=== PATIENT | female | born 1950 | race American Indian/Alaskan Native ===

== ENCOUNTER 2016-10-13 03:53 | Inpatient (IN) | payer MEDICAID ==
[2016-10-13] MEDS ORDERED: ZEMURON IV ONE ×2 (04:01→04:10)
[2016-10-13] MEDS ORDERED: QUELICIN ONE (04:01)
[2016-10-13] MEDS ORDERED: AMIDATE IV ONE ×2 (04:01→04:10)
[2016-10-13] MEDS ORDERED: NACL 0.9% 1000 ML 1,000 ML IV ONE ×4 (04:11→07:00)
[2016-10-13] MEDS ORDERED: D50W (25GM) IV PRN ×2 (04:11→06:30)
[2016-10-13 04:38] LABS: Mean Corpuscular HGB Conc 31 % (30-34); Mean Corpuscular Hemoglobin 32 pg (28-32); Mean Corpuscular Volume 104 fl (79-97); Platelet Count 324 K/mm3 (140-440); Red Blood Count 3.99 M/mm3 (3.65-5.03); Red Cell Distribution Width 13.5 % (13.2-15.2); White Blood Count 17.4 K/mm3 (4.5-11.0)
[2016-10-13 04:40] LABS: Hematocrit 41.4 % (30.3-42.9); Hemoglobin 12.7 gm/dl (10.1-14.3)
--- NOTE | 2016-10-13 04:46 | Cat Scan Report ---
FINAL REPORT PROCEDURE: CT HEAD/BRAIN WO CON TECHNIQUE: Computerized tomography of the head was performed without contrast material. HISTORY: ams COMPARISON: No prior studies are available for comparison. FINDINGS: Skull and scalp: Normal. Paranasal sinuses: Normal. Ventricles and subarachnoid spaces: Normal. Cerebrum: No evidence of hemorrhage, acute infarction or mass . Cerebellum and brainstem: No evidence of hemorrhage, acute infarction or mass. Vasculature: Normal. Comments: None. IMPRESSION: There is no evidence of an acute intracranial process
[2016-10-13] MEDS ORDERED: NACL 0.9% 1000 ML 1,000 ML IV SCH ×3 (05:00→07:00)
[2016-10-13] MEDS: NovoLIN R 100 UNITS in NACL 0.9% 99 ML IV SCH (05:00)
[2016-10-13] MEDS: VERSED/NS 100MG/100ML 100 MG/100 ML BAG IV SCH (05:00)
--- NOTE | 2016-10-13 05:00 | Emergency Department Report ---
ED Altered Mental Status HPI - General Chief Complaint: Hyperglycemia Stated Complaint: ELEVATED BLOOD GLUCOSE Time Seen by Provider: 10/13/16 04:08 Source: family, EMS Mode of arrival: Stretcher Limitations: Other - History of Present Illness Initial Comments: 66-year-old female with a past medical history of asthma, insulin diabetes, hypertension, and previous appendectomy, cholecystectomy, thyroidectomy, and hysterectomy presents to the hospital with altered mental status. Per EMS patient was found unresponsive by her today. Her reports that she has had nausea vomiting for the last several days that they thought was due to a stomach virus. He encouraged her to come to the hospital but she was planning to come tomorrow. He was checking on her throughout the night and then found her unresponsive. EMS reports that patient was unresponsive and initially had a respiratory rate of 40 and Accu-Chek read high. In route to to the hospital her breathing slowed down and became more agonal nasal trumpet was placed and bagging was initiated. Patient unable to provide any history of present illness due to altered mental status and will not follow commands. Patient does open eyes spontaneously and there is some mild spontaneous movement of her upper extremities but does not follow commands. - Related Data Home Medications Medication Instructions Recorded Confirmed Last Taken QUEtiapine [SEROquel] 200 mg PO HS 08/27/13 11/11/13 11/01/13 clonazePAM [KlonoPIN] 1 mg PO BID PRN 08/27/13 11/11/13 11/02/13 Insulin Aspart Prot/Aspart 45 unit SQ QAM 11/02/13 11/11/13 11/02/13 [NovoLOG Mix 70/30 VIAL] Previous Rx's Medication Instructions Recorded Last Taken Type Insulin Glargine,Hum.rec.anlog 28 unit SQ QHS #10 ml 10/10/13 11/01/13 Rx [Lantus Solostar] Pantoprazole [Protonix TAB] 40 mg PO QDAY #30 tablet 10/10/13 11/02/13 Rx Spironolactone [Aldactone] 25 mg PO QDAY #30 tablet 10/10/13 11/02/13 Rx Aspirin [Aspirin BABY CHEW TAB] 81 mg PO QDAY #30 tab.chew 10/26/13 11/02/13 Rx Simvastatin [Zocor TAB] 20 mg PO QHS #30 tablet 10/27/13 11/02/13 Rx HYDROcodone/APAP 5-325 [[place] 1 each PO Q6HR PRN #20 tablet 11/02/13 Unknown Rx 5-325 mg TAB] Metoprolol [Lopressor TAB] 50 mg PO BID #60 tablet 11/14/13 11/02/13 Rx Allergies Allergy/AdvReac Type Severity Reaction Status Date / Time Penicillins Allergy Rash Verified 08/27/13 08:32 ED Review of Systems ROS: Stated complaint: ELEVATED BLOOD GLUCOSE Other details as noted in HPI Comment: Unobtainable due to pts medical conditions ED Past Medical Hx - Past Medical History Previous Medical History?: Yes Hx Hypertension: Yes Hx Heart Attack/AMI: No Hx Congestive Heart Failure: No Hx Diabetes: Yes Hx Deep Vein Thrombosis: No Hx Pulmonary Embolism: No Hx Arthritis: Yes Hx Asthma: No Hx COPD: No Hx Tuberculosis: No - Surgical History Past Surgical History?: Yes Hx Coronary Stent: No Hx Pacemaker: No Hx Internal Defibrillator: No Hx Cholecystectomy: Yes Hx Appendectomy: No Hx Breast Surgery: No Additional Surgical History: Thyroidectomy, Hysterectomy - Social History Smoking Status: Never Smoker Substance Use Type: None - Medications Home Medications: Home Medications Medication Instructions Recorded Confirmed Last Taken Type QUEtiapine [SEROquel] 200 mg PO HS 08/27/13 11/11/13 11/01/13 History clonazePAM [KlonoPIN] 1 mg PO BID PRN 08/27/13 11/11/13 11/02/13 History Insulin Glargine,Hum.rec.anlog 28 unit SQ QHS #10 ml 10/10/13 11/11/13 11/01/13 Rx [Lantus Solostar] Pantoprazole [Protonix TAB] 40 mg PO QDAY #30 tablet 10/10/13 11/11/13 11/02/13 Rx Spironolactone [Aldactone] 25 mg PO QDAY #30 tablet 10/10/13 11/11/13 11/02/13 Rx Aspirin [Aspirin BABY CHEW TAB] 81 mg PO QDAY #30 tab.chew 10/26/13 11/11/13 Rx Simvastatin [Zocor TAB] 20 mg PO QHS #30 tablet 10/27/13 11/11/13 11/02/13 Rx HYDROcodone/APAP 5-325 [[place] 1 each PO Q6HR PRN #20 tablet 11/02/13 11/11/13 Unknown Rx 5-325 mg TAB] Insulin Aspart Prot/Aspart 45 unit SQ QAM 11/02/13 11/11/13 11/02/13 History [NovoLOG Mix 70/30 VIAL] Metoprolol [Lopressor TAB] 50 mg PO BID #60 tablet 11/14/13 11/11/13 11/02/13 Rx ED Physical Exam - General Limitations: Altered Mental Status - Other Other exam information: General: Minimal responsiveness Head exam: Atraumatic, normocephalic Eyes exam: Pupils equal and reactive to light. Patient moves eyes from left to right but not on command ENT: Dry mucous membrane, nasal trumpet Neck exam: Normal inspection Respiratory exam: Agonal respirations clear to auscultation requiring bagging Cardiovascular: Tachycardic regular rhythm Abdomen: Soft, nondistended, and nontender, with normal bowel sounds, no rebound, or guarding Extremity: No deformity noted Back: Normal Inspection Neurologic: Patient unresponsive, lethargic, does open her eyes spontaneously, nonspontaneous bilateral upper lymphs noted. Patient will not follow commands. Psychiatric: Unresponsive Skin: Warm, dry, intact ED Course Vital Signs 10/13/16 10/13/16 10/13/16 04:09 04:45 04:49 Pulse Rate 122 H 126 H 123 H Respiratory 22 Rate Blood Pressure 86/49 Blood Pressure 77/44 [Right] O2 Sat by Pulse 100 100 100 Oximetry 10/13/16 05:28 Pulse Rate 109 H Respiratory Rate Blood Pressure 108/53 Blood Pressure [Right] O2 Sat by Pulse 100 Oximetry - Reevaluation(s) Reevaluation #1: 10/13/16 05:31 Bagging was continued upon patient arrival. Patient was intubated using etomidate and rocuronium due to risk of hyperkalemia from DKA. Insulin bolus, IV fluids and insulin drip ordered while labs were pending. Reevaluation #2: 10/13/16 06:07 Blood pressure currently in the 120s and we are titrating up the Versed for sedation. Patient is awake and moving all extremities. - Intubation Time Out Performed: Yes Sedative: Etomidate Mg Given: 20 Paralytic: Rocuronium Mg Given: 100 Laryngoscope: Grant Size: 3 ET Tube Size: 7.5 Tube Secured Depth (cm): 22 Tube Secured Location: lips Tube Placement Confirmation: visualized tube passing t, equal breath sounds bilat, no breath sounds over epi, confirmation by capnometr Patient Tolerated Procedure: well Intubation Complications: none Additional Comments: Chest x-ray revealed a right mainstem intubation and instructed respiratory therapist to pull ET tube back to 21 at the lip - Lab Data Result diagrams: 10/13/16 04:22 10/13/16 04:22 Lab Results 10/13/16 10/13/16 10/13/16 Range/Units 04:16 04:22 04:22 WBC 17.4 H (4.5-11.0) K/mm3 RBC 3.99 (3.65-5.03) M/mm3 Hgb 12.7 (10.1-14.3) gm/dl Hct 41.4 (30.3-42.9) % MCV 104 H (79-97) fl MCH 32 (28-32) pg MCHC 31 (30-34) % RDW 13.5 (13.2-15.2) % Plt Count 324 (140-440) K/mm3 Add Manual Diff Complete Total Counted 100 Seg Neuts % (Manual) 71.0 H (40.0-70.0) % Band Neutrophils % 9.0 % Lymphocytes % (Manual) 12.0 L (13.4-35.0) % Reactive Lymphs % (Man) 0 % Monocytes % (Manual) 8.0 H (0.0-7.3) % Eosinophils % (Manual) 0 (0.0-4.3) % Basophils % (Manual) 0 (0.0-1.8) % Metamyelocytes % 0 % Myelocytes % 0 % Promyelocytes % 0 % Blast Cells % 0 % Nucleated RBC % Not Reportable Seg Neutrophils # Man 12.4 H (1.8-7.7) K/mm3 Band Neutrophils # 1.6 K/mm3 Lymphocytes # (Manual) 2.1 (1.2-5.4) K/mm3 Abs React Lymphs (Man) 0.0 K/mm3 Monocytes # (Manual) 1.4 H (0.0-0.8) K/mm3 Eosinophils # (Manual) 0.0 (0.0-0.4) K/mm3 Basophils # (Manual) 0.0 (0.0-0.1) K/mm3 Metamyelocytes # 0.0 K/mm3 Myelocytes # 0.0 K/mm3 Promyelocytes # 0.0 K/mm3 Blast Cells # 0.0 K/mm3 WBC Morphology Not Reportable Hypersegmented Neuts Not Reportable Hyposegmented Neuts Not Reportable Hypogranular Neuts Not Reportable Smudge Cells Not Reportable Toxic Granulation Not Reportable Toxic Vacuolation Not Reportable Dohle Bodies Not Reportable Pelger-Huet Anomaly Not Reportable [place] Rods Not Reportable Platelet Estimate Consistent w auto Clumped Platelets Not Reportable Plt Clumps, EDTA Not Reportable Large Platelets Not Reportable Giant Platelets Not Reportable Platelet Satelliting Not Reportable Plt Morphology Comment Not Reportable RBC Morphology Not Reportable Dimorphic RBCs Not Reportable Polychromasia Rare Hypochromasia Not Reportable Poikilocytosis Not Reportable Anisocytosis 1+ Microcytosis Not Reportable Macrocytosis Not Reportable Spherocytes Not Reportable Pappenheimer Bodies Not Reportable Sickle Cells Not Reportable Target Cells Not Reportable Tear Drop Cells Not Reportable Ovalocytes Not Reportable Helmet Cells Not Reportable Higgins-Mclendon-Chisholm Bodies Not Reportable [place] Rings Not Reportable Apex Cells Not Reportable Bite Cells Not Reportable Crenated Cell Not Reportable Elliptocytes Not Reportable Acanthocytes (Spur) Not Reportable Rouleaux Not Reportable Hemoglobin C Crystals Not Reportable Schistocytes Not Reportable Malaria parasites Not Reportable David Bodies Not Reportable Hem Pathologist Commnt No POC ABG pH (7.35-7.45) POC ABG pCO2 (35-45) POC ABG pO2 (80-105) POC ABG HCO3 POC ABG Total CO2 POC ABG O2 Sat POC ABG Base Excess VBG pH (7.320-7.420) FiO2 % Sodium 134 L (137-145) mmol/L Chloride 88.6 L (98-107) mmol/L BUN 91 H (7-17) mg/dL Creatinine 3.2 H (0.7-1.2) mg/dL Estimated GFR 18 ml/min BUN/Creatinine Ratio 28.43 % POC Glucose > 500 H (70-105) Calcium 8.7 (8.4-10.2) mg/dL Phosphorus 10.7 H (2.5-4.5) mg/dL Magnesium 3.5 H (1.7-2.3) mg/dL Total Bilirubin 0.2 (0.1-1.2) mg/dL AST 10 (5-40) units/L ALT 7 (7-56) units/L Alkaline Phosphatase 75 (35-129) units/L Total Creatine Kinase (30-135) units/L CK-MB (CK-2) (0.0-4.0) ng/mL CK-MB (CK-2) Rel Index (0-4) Troponin T (0.00-0.029) ng/mL Total Protein 6.2 L (6.3-8.2) g/dL Albumin 3.7 L (3.9-5) g/dL Albumin/Globulin Ratio 1.5 % Urine Color (Yellow) Urine Turbidity (Clear) Urine pH (5.0-7.0) Ur Specific [place] (1.003-1.030) Urine Protein (Negative) mg/dL Urine Glucose (UA) (Negative) mg/dL Urine Ketones (Negative) mg/dL Urine Blood (Negative) Urine Nitrite (Negative) Urine Bilirubin (Negative) Urine Urobilinogen (<2.0) mg/dL Ur Leukocyte Esterase (Negative) Urine WBC (Auto) (0.0-6.0) /HPF Urine RBC (Auto) (0.0-6.0) /HPF U Epithel Cells (Auto) (0-13.0) /HPF Urine Mucus /HPF 10/13/16 10/13/16 10/13/16 Range/Units 04:22 04:22 05:03 WBC (4.5-11.0) K/mm3 RBC (3.65-5.03) M/mm3 Hgb (10.1-14.3) gm/dl Hct (30.3-42.9) % MCV (79-97) fl MCH (28-32) pg MCHC (30-34) % RDW (13.2-15.2) % Plt Count (140-440) K/mm3 Add Manual Diff Total Counted Seg Neuts % (Manual) (40.0-70.0) % Band Neutrophils % % Lymphocytes % (Manual) (13.4-35.0) % Reactive Lymphs % (Man) % Monocytes % (Manual) (0.0-7.3) % Eosinophils % (Manual) (0.0-4.3) % Basophils % (Manual) (0.0-1.8) % Metamyelocytes % % Myelocytes % % Promyelocytes % % Blast Cells % % Nucleated RBC % Seg Neutrophils # Man (1.8-7.7) K/mm3 Band Neutrophils # K/mm3 Lymphocytes # (Manual) (1.2-5.4) K/mm3 Abs React Lymphs (Man) K/mm3 Monocytes # (Manual) (0.0-0.8) K/mm3 Eosinophils # (Manual) (0.0-0.4) K/mm3 Basophils # (Manual) (0.0-0.1) K/mm3 Metamyelocytes # K/mm3 Myelocytes # K/mm3 Promyelocytes # K/mm3 Blast Cells # K/mm3 WBC Morphology Hypersegmented Neuts Hyposegmented Neuts Hypogranular Neuts Smudge Cells Toxic Granulation Toxic Vacuolation Dohle Bodies Pelger-Huet Anomaly [place] Rods Platelet Estimate Clumped Platelets Plt Clumps, EDTA Large Platelets Giant Platelets Platelet Satelliting Plt Morphology Comment RBC Morphology Dimorphic RBCs Polychromasia Hypochromasia Poikilocytosis Anisocytosis Microcytosis Macrocytosis Spherocytes Pappenheimer Bodies Sickle Cells Target Cells Tear Drop Cells Ovalocytes Helmet Cells Higgins-Mclendon-Chisholm Bodies [place] Rings Apex Cells Bite Cells Crenated Cell Elliptocytes Acanthocytes (Spur) Rouleaux Hemoglobin C Crystals Schistocytes Malaria parasites David Bodies Hem Pathologist Commnt POC ABG pH (7.35-7.45) POC ABG pCO2 (35-45) POC ABG pO2 (80-105) POC ABG HCO3 POC ABG Total CO2 POC ABG O2 Sat POC ABG Base Excess VBG pH 7.020 L* (7.320-7.420) FiO2 % Sodium (137-145) mmol/L Chloride (98-107) mmol/L BUN (7-17) mg/dL Creatinine (0.7-1.2) mg/dL Estimated GFR ml/min BUN/Creatinine Ratio % POC Glucose (70-105) Calcium (8.4-10.2) mg/dL Phosphorus (2.5-4.5) mg/dL Magnesium (1.7-2.3) mg/dL Total Bilirubin (0.1-1.2) mg/dL AST (5-40) units/L ALT (7-56) units/L Alkaline Phosphatase (35-129) units/L Total Creatine Kinase 107 (30-135) units/L CK-MB (CK-2) 3.1 (0.0-4.0) ng/mL CK-MB (CK-2) Rel Index 2.8 (0-4) Troponin T < 0.010 (0.00-0.029) ng/mL Total Protein (6.3-8.2) g/dL Albumin (3.9-5) g/dL Albumin/Globulin Ratio % Urine Color Yellow (Yellow) Urine Turbidity Clear (Clear) Urine pH 5.0 (5.0-7.0) Ur Specific [place] 1.017 (1.003-1.030) Urine Protein 30 mg/dl (Negative) mg/dL Urine Glucose (UA) >=500 (Negative) mg/dL Urine Ketones 20 (Negative) mg/dL Urine Blood Mod (Negative) Urine Nitrite Neg (Negative) Urine Bilirubin Neg (Negative) Urine Urobilinogen < 2.0 (<2.0) mg/dL Ur Leukocyte Esterase Neg (Negative) Urine WBC (Auto) < 1.0 (0.0-6.0) /HPF Urine RBC (Auto) < 1.0 (0.0-6.0) /HPF U Epithel Cells (Auto) < 1.0 (0-13.0) /HPF Urine Mucus Few /HPF 10/13/ Range/Units 05:22 WBC (4.5-11.0) K/mm3 RBC (3.65-5.03) M/mm3 Hgb (10.1-14.3) gm/dl Hct (30.3-42.9) % MCV (79-97) fl MCH (28-32) pg MCHC (30-34) % RDW (13.2-15.2) % Plt Count (140-440) K/mm3 Add Manual Diff Total Counted Seg Neuts % (Manual) (40.0-70.0) % Band Neutrophils % % Lymphocytes % (Manual) (13.4-35.0) % Reactive Lymphs % (Man) % Monocytes % (Manual) (0.0-7.3) % Eosinophils % (Manual) (0.0-4.3) % Basophils % (Manual) (0.0-1.8) % Metamyelocytes % % Myelocytes % % Promyelocytes % % Blast Cells % % Nucleated RBC % Seg Neutrophils # Man (1.8-7.7) K/mm3 Band Neutrophils # K/mm3 Lymphocytes # (Manual) (1.2-5.4) K/mm3 Abs React Lymphs (Man) K/mm3 Monocytes # (Manual) (0.0-0.8) K/mm3 Eosinophils # (Manual) (0.0-0.4) K/mm3 Basophils # (Manual) (0.0-0.1) K/mm3 Metamyelocytes # K/mm3 Myelocytes # K/mm3 Promyelocytes # K/mm3 Blast Cells # K/mm3 WBC Morphology Hypersegmented Neuts Hyposegmented Neuts Hypogranular Neuts Smudge Cells Toxic Granulation Toxic Vacuolation Dohle Bodies Pelger-Huet Anomaly [place] Rods Platelet Estimate Clumped Platelets Plt Clumps, EDTA Large Platelets Giant Platelets Platelet Satelliting Plt Morphology Comment RBC Morphology Dimorphic RBCs Polychromasia Hypochromasia Poikilocytosis Anisocytosis Microcytosis Macrocytosis Spherocytes Pappenheimer Bodies Sickle Cells Target Cells Tear Drop Cells Ovalocytes Helmet Cells Higgins-Mclendon-Chisholm Bodies [place] Rings Jeannette Cells Bite Cells Crenated Cell Elliptocytes Acanthocytes (Spur) Rouleaux Hemoglobin C Crystals Schistocytes Malaria parasites David Bodies Hem Pathologist Commnt POC ABG pH 7.085 L (7.35-7.45) POC ABG pCO2 28.8 L (35-45) POC ABG pO2 375 H (80-105) POC ABG HCO3 8.6 POC ABG Total CO2 10 POC ABG O2 Sat 100 POC ABG Base Excess -21 VBG pH (7.320-7.420) FiO2 100 % Sodium (137-145) mmol/L Chloride (98-107) mmol/L BUN (7-17) mg/dL Creatinine (0.7-1.2) mg/dL Estimated GFR ml/min BUN/Creatinine Ratio % POC Glucose (70-105) Calcium (8.4-10.2) mg/dL Phosphorus (2.5-4.5) mg/dL Magnesium (1.7-2.3) mg/dL Total Bilirubin (0.1-1.2) mg/dL AST (5-40) units/L ALT (7-56) units/L Alkaline Phosphatase (35-129) units/L Total Creatine Kinase (30-135) units/L CK-MB (CK-2) (0.0-4.0) ng/mL CK-MB (CK-2) Rel Index (0-4) Troponin T (0.00-0.029) ng/mL Total Protein (6.3-8.2) g/dL Albumin (3.9-5) g/dL Albumin/Globulin Ratio % Urine Color (Yellow) Urine Turbidity (Clear) Urine pH (5.0-7.0) Ur Specific [place] (1.003-1.030) Urine Protein (Negative) mg/dL Urine Glucose (UA) (Negative) mg/dL Urine Ketones (Negative) mg/dL Urine Blood (Negative) Urine Nitrite (Negative) Urine Bilirubin (Negative) Urine Urobilinogen (<2.0) mg/dL Ur Leukocyte Esterase (Negative) Urine WBC (Auto) (0.0-6.0) /HPF Urine RBC (Auto) (0.0-6.0) /HPF U Epithel Cells (Auto) (0-13.0) /HPF Urine Mucus /HPF - EKG Data -: EKG Interpreted by Me - Radiology Data Radiology results: report reviewed, image reviewed (chest x-ray: No acute infiltrate right main stemnn intubation) CT head: No acute findings CT abdomen and pelvis noncontrast: Some streaking of the mesentery fat surrounding the pancreas early inflammatory changes in the pancreas is suspected. Left lower lobe infiltrate - Medical Decision Making Patient will require admission to the hospital for DKA. She is currently intubated and requires ICU admission. Normal saline, insulin drip initiated in the ED. CT suggestive of possible pancreatitis lipase pending. CT also shows left lower lobe infiltrate blood cultures and Levaquin initiated - Differential Diagnosis dKA, intra-abdominal infection, intracranial abnormality, encephalopathy Critical Care Time: Yes Critical care time in (mins) excluding proc time.: 40 (min) Critical care attestation.: If time is entered above; I have spent that time in minutes in the direct care of this critically ill patient, excluding procedure time. ED Disposition Clinical Impression: DKA (diabetic ketoacidoses), Hyperkalemia, Acute on chronic renal failure, Respiratory failure, Pneumonia Disposition: OP ADMITTED IP TO THIS HOSP Is pt being admited?: Yes Condition: Stable Time of Disposition: 05:48 (Dr. Norwood/hosp)
[2016-10-13] MEDS ORDERED: VERSED/NS 100MG/100ML 100 MG/100 ML BAG IV ONE (05:12)
[2016-10-13] MEDS ORDERED: ARTIFICIAL TEARS OPHTH OINT OU PRN (05:14)
[2016-10-13] MEDS ORDERED: VASELINE LIP THERAPY TP PRN (05:14)
[2016-10-13] MEDS ORDERED: NACL 0.9% 1000 ML 2,000 ML IV ONE (05:17)
[2016-10-13 05:18] LABS: Creatine Kinase MB 3.1 ng/mL (0.0-4.0)
[2016-10-13 05:19] LABS: Creatine Kinase 107 units/L (30-135)
[2016-10-13 05:21] LABS: Anisocytosis 1+; Basophils % (Manual) 0 % (0.0-1.8); Blastocytes % (Manual) 0 %; Diff Status Complete; Eosinophils % (Manual) 0 % (0.0-4.3); Platelet Estimate Consistent w Auto; Polychromasia Rare
[2016-10-13 05:28] LABS: Bilirubin,Urine NEG (Negative); Blood,Urine MOD (Negative); Ketones,Urine 20 mg/dL (Negative); Leukocyte Esterase,Urine NEG (Negative); Mucus,Urine FEW /HPF; Nitrite,Urine NEG (Negative); RBC,Urine < 1.0 /HPF (0.0-6.0); Urobilinogen,Urine < 2.0 mg/dL (<2.0); WBC,Urine < 1.0 /HPF (0.0-6.0)
--- NOTE | 2016-10-13 05:35 | Cat Scan Report ---
FINAL REPORT PROCEDURE: CT ABDOMEN PELVIS WO CON TECHNIQUE: Computerized axial tomography of the abdomen and pelvis was performed without intravenous contrast. This study is performed without intravascular contrast material and its sensitivity for abdominal and pelvic pathology, including neoplasms, inflammation, abscess, free fluid, thrombosis, arterial dissection and infarction, is reduced compared with a contrast enhanced study. HISTORY: ams, n,v COMPARISON: No prior studies are available for comparison. FINDINGS: Visualized lower thorax: There is infiltrate in the left lower lung. Mild atelectasis right lower lung.. Liver: Normal size and attenuation. Spleen: Normal size and attenuation. Gallbladder and biliary system: There is absence of the gallbladder. No dilatation of the biliary ductal system. Pancreas: There is slight increased markings in the [place] pancreatic mesenteric fat, early inflammatory change of pancreatitis is possible. The pancreas has a normal appearance. No pancreatic mass. No pseudocyst.. Adrenals: Normal. Kidneys: Normal. GI tract: The stomach is normal. The nasogastric tube ends mid stomach. The small bowel has a normal caliber. No obstruction, ileus or enteritis. The cecum, appendix region and colon are normal. Mild diverticular change within the distal colon.. Lymph nodes and mesentery: Normal. Vasculature: Moderate atherosclerosis of the aorta and branching vessels. Bladder: Normal. Reproductive organs: Normal. Peritoneum: No free fluid. Musculoskeletal structures: Mild degenerative changes of the osseous structures.. Other: None. IMPRESSION: There is no evidence of intestinal urinary tract obstruction. No ileus or enteritis. Moderate diverticulosis of the colon. Eighty nasogastric tube ends in the mid stomach. There is some streaking of the mesenteric fat surrounding the pancreas, early inflammatory change of pancreatitis is suspected. No complication. Previous cholecystectomy. Left lower lung infiltrate..
[2016-10-13 05:38] LABS: Albumin 3.7 g/dL (3.9-5); Albumin/Globulin Ratio 1.5 %; BUN/Creatinine Ratio 28.43; Bilirubin,Total 0.2 mg/dL (0.1-1.2); Calcium 8.7 mg/dL (8.4-10.2); Chloride 88.6 mmol/L (98-107); Magnesium 3.5 mg/dL (1.7-2.3); Phosphorous 10.7 mg/dL (2.5-4.5); Total Protein 6.2 g/dL (6.3-8.2)
[2016-10-13 05:38] LABS: ISTAT Base Excess -21; ISTAT HCO3 8.6; ISTAT PCO2 28.8 (35-45); ISTAT PH 7.085 (7.35-7.45); ISTAT PO2 375 (80-105); ISTAT SO2 100; ISTAT TCO2 10
[2016-10-13] MEDS ORDERED: LEVAQUIN 750MG/150ML 750 MG/150 ML BAG IV ONE (05:49)
[2016-10-13] MEDS ORDERED: NACL 0.9% 500 ML IV SCH (06:00)
[2016-10-13] MEDS ORDERED: VERSED/NS 100MG/100ML 100 ML IV SCH (06:00)
[2016-10-13] MEDS ORDERED: fentaNYL DRIP Premix 2,000 MCG/100 ML BAG IV ONE (06:21)
[2016-10-13 06:25] LABS: B-Hydroxybutyrate 107.3 mg/dL (0.2-2.8)
[2016-10-13 06:32] LABS: Potassium 8.4 mmol/L (3.6-5.0)
--- NOTE | 2016-10-13 06:38 | History and Physical Report ---
History of Present Illness Date of examination: 10/13/16 History of present illness: A 63-year-old with a history of hypertension, diabetes complain to her yesterday that she was not feeling well. This morning at 2 AM, she was restless in bed, he checked on her, she was lethargic and was brought to the emergency room for evaluation. In route to the hospital, she deteriorates and had to be intubated in the emergency room. Her review of system is unobtainable PAST SURGICAL HISTORY: As directed, cholecystectomy, thyroid surgery SOCIAL HISTORY: No alcohol, tobacco, drugs FAMILY HISTORY: Hypertension Medications and Allergies Allergies Allergy/AdvReac Type Severity Reaction Status Date / Time Penicillins Allergy Rash Verified 08/27/13 08:32 Home Medications Medication Instructions Recorded Confirmed Last Taken Type Insulin Aspart [NovoLOG Flexpen] 45 units SQ QPM 10/13/16 10/13/16 Unknown History Insulin Aspart [NovoLOG Flexpen] 50 units SQ QAM 10/13/16 10/13/16 Unknown History Insulin Detemir [Levemir VIAL] 20 unit SQ QHS 10/13/16 10/13/16 Unknown History Losartan [Cozaar] 25 mg PO QDAY 10/13/16 10/13/16 Unknown History Metoprolol [Lopressor] 25 mg PO BID 10/13/16 10/13/16 Unknown History Pregabalin [Lyrica] 75 mg PO BID 10/13/16 10/13/16 Unknown History Quetiapine Fumarate [Seroquel] 100 mg PO QHS 10/13/16 10/13/16 Unknown History amLODIPine [Norvasc] 5 mg PO DAILY 10/13/16 10/13/16 Unknown History clonazePAM [Klonopin] 1 mg PO BID PRN 10/13/16 10/13/16 Unknown History Active Meds: Active Medications Dextrose (D50w (25gm)) 0 ml IV PRN PRN PRN Reason: Hypoglycemia Dextrose (D50w (25gm)) 0 ml IV ONCE PRN PRN Reason: Hypoglycemia Enoxaparin Sodium (Lovenox) 30 mg SUB-Q QDAY JULI Hydrophilic Ointment (Vaseline Lip Therapy) 1 applic TP Q2HR PRN PRN Reason: Dry Lips Insulin Human Regular 100 (units/ Sodium Chloride) 100 mls @ 1 mls/hr IV TITR JULI; 1 UNITS/HR PRN Reason: Protocol Last Admin: 10/13/16 05:00 Dose: 8 units/hr, 8 mls/hr Sodium Chloride (Nacl 0.9% 1000 Ml) 1,000 mls @ 999 mls/hr IV DIRECT JULI Midazolam HCl (Versed/Ns 100mg/100ml) 100 mg in 100 mls @ 1 mls/hr IV TITR JULI ; 1 MG/HR PRN Reason: Protocol Last Titration: 10/13/16 06:31 Dose: 5 mg/hr, 5 mls/hr Sodium Chloride (Nacl 0.9% 1000 Ml) 1,000 mls @ 999 mls/hr IV DIRECT JULI Sodium Chloride (Nacl 0.9% 1000 Ml) 1,000 mls @ 999 mls/hr IV DIRECT ONE Stop: 10/13/16 07:00 Last Admin: 10/13/16 06:00 Dose: 999 mls/hr Levofloxacin/Dextrose (Levaquin 750mg/150ml) 750 mg in 150 mls @ 100 mls/hr IV ONCE ONE Stop: 10/13/16 07:18 Sodium Chloride (Nacl 0.9% 1000 Ml) 1,000 mls @ 150 mls/hr IV DIRECT JULI Fentanyl Citrate (Fentanyl Drip Premix) 2,000 mcg in 100 mls @ 4.082 mls/hr IV TITR JULI; 1 MCG/KG/HR PRN Reason: Protocol Dextrose (D5w) 1,000 mls @ 125 mls/hr IV DIRECT JULI Levofloxacin/Dextrose (Levaquin 500mg/100ml) 500 mg in 100 mls @ 100 mls/hr IV Q48H JULI PRN Reason: Protocol Multi-Ingred Cream/Lotion/Oil/Oint (Artificial Tears Ophth Oint) 1 applic OU Q4HR PRN PRN Reason: Dry Eye(s) Ondansetron HCl (Zofran) 4 mg IV Q8H PRN PRN Reason: N/V unrelieved by Reglan Sodium Chloride (Nacl 0.9% 500 Ml) 1 ml IV DIRECT JULI Exam - Physical Exam Narrative exam: General Apperance: The patient sitting in bed no acute distress, intubated, sedated HEENT: Normocephalic, atraumatic. Pupils equally round and reactive to light, unable to do extraocular movement , and no sclericterus or JVD or thyromegaly or nodule. Neck supple, no carotid bruit, mucous membranesdry , ET tube in place, and a neighbor to examine oral cavity Heart: S1-S2, regular is rhythm Lungs: Clear to auscultation bilaterally, breathing comfortable Abdomen: Positive bowel sounds, soft, nontender, nondistended, no organomegaly Extremities: No edema cyanosis clubbing Skin: no rash, nodule, warm and dry Neuro: Sedated - Constitutional Vitals: Temp Pulse Resp BP Pulse Ox 76 24 105/75 100 10/13/16 06:36 10/13/16 06:36 10/13/16 06:36 10/13/16 06:36 Results - Labs CBC & Chem 7: 10/24/16 11:00 10/23/16 Unknown Labs: Abnormal lab results 10/13/16 10/13/16 10/13/16 Range/Units 04:16 04:22 04:22 WBC 17.4 H (4.5-11.0) K/mm3 MCV 104 H (79-97) fl Seg Neuts % (Manual) 71.0 H (40.0-70.0) % Lymphocytes % (Manual) 12.0 L (13.4-35.0) % Monocytes % (Manual) 8.0 H (0.0-7.3) % Seg Neutrophils # Man 12.4 H (1.8-7.7) K/mm3 Monocytes # (Manual) 1.4 H (0.0-0.8) K/mm3 POC ABG pH (7.35-7.45) POC ABG pCO2 (35-45) POC ABG pO2 (80-105) VBG pH (7.320-7.420) Sodium 134 L (137-145) mmol/L Potassium 8.4 H* (3.6-5.0) mmol/L Chloride 88.6 L (98-107) mmol/L Carbon Dioxide 7 L* (22-30) mmol/L BUN 91 H (7-17) mg/dL Creatinine 3.2 H (0.7-1.2) mg/dL Glucose 846 H* (65-100) mg/dL POC Glucose > 500 H (70-105) Lactic Acid (0.7-2.0) mmol/L Phosphorus 10.7 H (2.5-4.5) mg/dL Magnesium 3.5 H (1.7-2.3) mg/dL Total Protein 6.2 L (6.3-8.2) g/dL Albumin 3.7 L (3.9-5) g/dL Lipase 2185 H (13-60) units/L Ketones 107.3 H (0.2-2.8) mg/dL 10/13/16 10/13/16 10/13/16 Range/Units 04:22 04:22 05:22 WBC (4.5-11.0) K/mm3 MCV (79-97) fl Seg Neuts % (Manual) (40.0-70.0) % Lymphocytes % (Manual) (13.4-35.0) % Monocytes % (Manual) (0.0-7.3) % Seg Neutrophils # Man (1.8-7.7) K/mm3 Monocytes # (Manual) (0.0-0.8) K/mm3 POC ABG pH 7.085 L (7.35-7.45) POC ABG pCO2 28.8 L (35-45) POC ABG pO2 375 H (80-105) VBG pH 7.020 L* (7.320-7.420) Sodium (137-145) mmol/L Potassium (3.6-5.0) mmol/L Chloride (98-107) mmol/L Carbon Dioxide (22-30) mmol/L BUN (7-17) mg/dL Creatinine (0.7-1.2) mg/dL Glucose (65-100) mg/dL POC Glucose (70-105) Lactic Acid 2.6 H* (0.7-2.0) mmol/L Phosphorus (2.5-4.5) mg/dL Magnesium (1.7-2.3) mg/dL Total Protein (6.3-8.2) g/dL Albumin (3.9-5) g/dL Lipase (13-60) units/L Ketones (0.2-2.8) mg/dL 10/13/16 Range/Units 06:16 WBC (4.5-11.0) K/mm3 MCV (79-97) fl Seg Neuts % (Manual) (40.0-70.0) % Lymphocytes % (Manual) (13.4-35.0) % Monocytes % (Manual) (0.0-7.3) % Seg Neutrophils # Man (1.8-7.7) K/mm3 Monocytes # (Manual) (0.0-0.8) K/mm3 POC ABG pH (7.35-7.45) POC ABG pCO2 (35-45) POC ABG pO2 (80-105) VBG pH (7.320-7.420) Sodium (137-145) mmol/L Potassium (3.6-5.0) mmol/L Chloride (98-107) mmol/L Carbon Dioxide (22-30) mmol/L BUN (7-17) mg/dL Creatinine (0.7-1.2) mg/dL Glucose (65-100) mg/dL POC Glucose 479 H (70-105) Lactic Acid (0.7-2.0) mmol/L Phosphorus (2.5-4.5) mg/dL Magnesium (1.7-2.3) mg/dL Total Protein (6.3-8.2) g/dL Albumin (3.9-5) g/dL Lipase (13-60) units/L Ketones (0.2-2.8) mg/dL - Imaging and Cardiology CT scan - abdomen: report reviewed CT Scan - head: report reviewed CT scan - pelvis: report reviewed Assessment and Plan Acute respiratory failure Severe DKA Sepsis Pneumonia Acute renal failure Hyperkalemia Admits medicine Continue aggressive IV fluids, start insulin drip Monitor serial chemistry, fingersticks Give stat calcium, bicarbonate Start IV Levaquin Consult renal, critical care Start DVT prophylaxis
[2016-10-13] MEDS ORDERED: CALCIUM CHLORIDE 1,000 MG in NACL 0.9% 100 ML IV ONE (06:40)
[2016-10-13] MEDS ORDERED: SODIUM BICARBONATE IV ONE (06:40)
[2016-10-13] MEDS ORDERED: KIONEX PO ONE (06:41)
[2016-10-13] MEDS: fentaNYL DRIP Premix 2,000 MCG/100 ML BAG IV SCH (06:41)
[2016-10-13 06:48] LABS: Calcium 8.2 mg/dL (8.4-10.2); Chloride 95.3 mmol/L (98-107)
[2016-10-13] MEDS ORDERED: D5W 1,000 ML IV SCH (07:00)
[2016-10-13] MEDS ORDERED: D5W/0.45% NACL/KCL 20 MEQ 20 MEQ/1,000 ML BAG IV SCH (07:00)
[2016-10-13 07:12] LABS: BUN/Creatinine Ratio 30.35; Calcium 7.9 mg/dL (8.4-10.2); Chloride 98.8 mmol/L (98-107)
[2016-10-13 07:31] LABS: Potassium 7.3 mmol/L (3.6-5.0)
[2016-10-13 07:50] LABS: Potassium 6.2 mmol/L (3.6-5.0)
[2016-10-13 08:02] LABS: Phosphorous 6.9 mg/dL (2.5-4.5)
[2016-10-13 09:29] LABS: BUN/Creatinine Ratio 28.51; Chloride 104.1 mmol/L (98-107); Potassium 5.6 mmol/L (3.6-5.0)
[2016-10-13] MEDS ORDERED: PANCREAZE DR 10,500 UNIT FEEDTUBE PRN (09:39)
[2016-10-13] MEDS ORDERED: SODIUM BICARBONATE FEEDTUBE PRN (09:39)
[2016-10-13] MEDS ORDERED: SIMPLE SYRUP FEEDTUBE PRN ×2 (09:39)
[2016-10-13] MEDS ORDERED: LOVENOX SUB-Q SCH ×2 (10:00)
--- NOTE | 2016-10-13 10:08 | XRay Report ---
AP CHEST History: Endotracheal tube placement. Findings: Right mainstem bronchus intubation is identified. These findings were noted by Dr. Jarquin in the emergency department. Retraction by 3 cm is recommended. Heart and mediastinal structures are within normal limits. The lungs are clear. No acute process is noted. Cardiac defibrillator pads are in place. Impression: Right mainstem bronchus intubation, see above. Otherwise, no acute process is appreciated in the chest.
--- NOTE | 2016-10-13 11:06 | Consultation ---
History of Present Illness - Reason for Consult Consult date: 10/13/16 acute renal failure - History of Present Illness This is a 66 year old female who is admitted to the hospital for unresponsiveness. Patient was found at home unresponsive by her who called 911. When EMS arrived to patient home patient was indeed unresponsive and her glucose levels were elevated on Acu-Check machine, reading " high". Patient required intubation. On evaluation in E.R patient was found to be in DKA as her blood glucose levels revealed 664. Patient has been started on insulin drip. Patient also noted to be Acidotic and Hyperkalemic due to DKA. Serum creatinine noted to be elevated at 2.7. Patient's is currently at bedside who states patient was seen by a kidney doctor 3-4 years ago due to kidney" shutting down" per . We are being consulted for management of this patient's Acute Renal Failure on CKD. Past History Past Medical History: diabetes, hypertension Past Surgical History: Other (left alina surgery for fracture repair and thyroid surgery per ) Social history: Family history: no significant family history Medications and Allergies Allergies Allergy/AdvReac Type Severity Reaction Status Date / Time Penicillins Allergy Rash Verified 08/27/13 08:32 Home Medications Medication Instructions Recorded Confirmed Last Taken Type Insulin Aspart [NovoLOG Flexpen] 45 units SQ QPM 10/13/16 10/13/16 Unknown History Insulin Aspart [NovoLOG Flexpen] 50 units SQ QAM 10/13/16 10/13/16 Unknown History Insulin Detemir [Levemir VIAL] 20 unit SQ QHS 10/13/16 10/13/16 Unknown History Losartan [Cozaar] 25 mg PO QDAY 10/13/16 10/13/16 Unknown History Metoprolol [Lopressor] 25 mg PO BID 10/13/16 10/13/16 Unknown History Pregabalin [Lyrica] 75 mg PO BID 10/13/16 10/13/16 Unknown History Quetiapine Fumarate [Seroquel] 100 mg PO QHS 10/13/16 10/13/16 Unknown History amLODIPine [Norvasc] 5 mg PO DAILY 10/13/16 10/13/16 Unknown History clonazePAM [Klonopin] 1 mg PO BID PRN 10/13/16 10/13/16 Unknown History Active Meds: Active Medications Lipase/Protease/Amylase (Pancreaze Dr 10,500 Unit) 1 each FEEDTUBE PRN PRN PRN Reason: For Clogged Feeding Tube Dextrose (D50w (25gm)) 0 ml IV ONCE PRN PRN Reason: Hypoglycemia Enoxaparin Sodium (Lovenox) 30 mg SUB-Q QDAY JULI Hydrophilic Ointment (Vaseline Lip Therapy) 1 applic TP Q2HR PRN PRN Reason: Dry Lips Insulin Human Regular 100 (units/ Sodium Chloride) 100 mls @ 1 mls/hr IV TITR JLUI; 1 UNITS/HR PRN Reason: Protocol Last Titration: 10/13/16 10:13 Dose: 11 units/hr, 11 mls/hr Midazolam HCl (Versed/Ns 100mg/100ml) 100 mg in 100 mls @ 1 mls/hr IV TITR JULI ; 1 MG/HR PRN Reason: Protocol Last Titration: 10/13/16 06:31 Dose: 5 mg/hr, 5 mls/hr Sodium Chloride (Nacl 0.9% 1000 Ml) 1,000 mls @ 150 mls/hr IV DIRECT JULI Fentanyl Citrate (Fentanyl Drip Premix) 2,000 mcg in 100 mls @ 4.082 mls/hr IV TITR JULI; 1 MCG/KG/HR PRN Reason: Protocol Last Titration: 10/13/16 08:06 Dose: 2 mcg/kg/hr, 8.165 mls/hr Dextrose (D5w) 1,000 mls @ 125 mls/hr IV DIRECT JULI Levofloxacin/Dextrose (Levaquin 500mg/100ml) 500 mg in 100 mls @ 100 mls/hr IV Q48H JULI PRN Reason: Protocol Multi-Ingred Cream/Lotion/Oil/Oint (Artificial Tears Ophth Oint) 1 applic OU Q4HR PRN PRN Reason: Dry Eye(s) Ondansetron HCl (Zofran) 4 mg IV Q8H PRN PRN Reason: N/V unrelieved by Reglan Simple Syrup (Simple Syrup) 15 ml FEEDTUBE PRN PRN PRN Reason: Hypoglycemia Simple Syrup (Simple Syrup) 30 ml FEEDTUBE PRN PRN PRN Reason: Hypoglycemia Sodium Bicarbonate (Sodium Bicarbonate) 325 mg FEEDTUBE PRN PRN PRN Reason: For Clogged Feeding Tube Sodium Chloride (Nacl 0.9% 500 Ml) 1 ml IV DIRECT JULI Review of Systems ROS unobtainable: due to endotracheal tube, due to mental status Exam - Vital Signs Vital signs: Vital Signs Pulse Resp BP Pulse Ox 120 H 32 H 104/78 99 10/13/16 04:04 10/13/16 04:04 10/13/16 04:04 10/13/16 04:04 - General Appearance General appearance: other (sedated and intubated) EENT: ATNC, PERRL Neck: Present: neck supple, trachea midline Respiratory: Clear to Ascultation Heart: regular, S1S2 Gastrointestinal: Present: normoactive bowel sounds Integumentary: warm and dry Neurologic: other (sedated and intubated) Results - Lab Results 10/13/16 04:22 10/13/16 10:44 Most recent lab results Calcium 8.0 mg/dL (8.4-10.2) L 10/13/16 08:49 Phosphorus 6.9 mg/dL (2.5-4.5) H D 10/13/16 06:38 Magnesium 3.0 mg/dL (1.7-2.3) H 10/13/16 06:38 Assessment and Plan - Patient Problems (1) Acute on chronic renal failure Current Visit: Yes Status: Acute Plan to address problem: Acute Renal Failure secondary to Diabetic Keto Acidosis and possibly has underlying CKD from Diabetes Mellitus and Hypertension Baseline serum creatinine unknown Obtain renal panel, urine lytes and protein labs Obtain renal ultrasound DKA- on Insulin drip On D5W@ 125 ml/hr Hyperkalemia-received Kayexalate and other anti-potassium meds Acidosis-will correct itself as DKA resolves on insulin drip Obtain daily weights Renally dose medications Strict I/O monitoring, stewart catheter present Will monitor renal function closely Renal plan of care reviewed with Dr. Paniagua Thank you for the kind consult. We will follow. (2) DKA (diabetic ketoacidoses) Current Visit: Yes Status: Acute Qualifiers: Diabetes mellitus type: D Diabetes mellitus complication detail: D Plan to address problem: On insulin drip (3) Hyperkalemia Current Visit: Yes Status: Acute Plan to address problem: Received Kayexalate and other anti-potassium meds (4) Respiratory failure Current Visit: Yes Status: Acute Qualifiers: Chronicity: C Respiratory failure complication: R Plan to address problem: Intubated (5) Acidosis Current Visit: Yes Status: Acute Plan to address problem: Acidosis secondary to DKA, no bicarb drip needed, this will correct itself as DKA improves on insulin drip
[2016-10-13 11:28] LABS: BUN/Creatinine Ratio 27.69; Calcium 8.2 mg/dL (8.4-10.2); Chloride 105.2 mmol/L (98-107); Potassium 5.4 mmol/L (3.6-5.0)
--- NOTE | 2016-10-13 13:21 | Consultation ---
History of Present Illness Consult date: 10/13/16 Requesting physician: JUAN HAAS Reason for consult: other (Acute Respiratory Failure; DKA) History of present illness: PULMONARY/CCM CONSULT NOTE (Full dictation # [id number]) Please see dictated notes for full details Past History Past Medical History: diabetes, hypertension Past Surgical History: Other (left alina surgery for fracture repair and thyroid surgery per ) Social history: Family history: no significant family history Medications and Allergies Allergies Allergy/AdvReac Type Severity Reaction Status Date / Time Penicillins Allergy Rash Verified 08/27/13 08:32 Home Medications Medication Instructions Recorded Confirmed Last Taken Type Insulin Aspart [NovoLOG Flexpen] 45 units SQ QPM 10/13/16 10/13/16 Unknown History Insulin Aspart [NovoLOG Flexpen] 50 units SQ QAM 10/13/16 10/13/16 Unknown History Insulin Detemir [Levemir VIAL] 20 unit SQ QHS 10/13/16 10/13/16 Unknown History Losartan [Cozaar] 25 mg PO QDAY 10/13/16 10/13/16 Unknown History Metoprolol [Lopressor] 25 mg PO BID 10/13/16 10/13/16 Unknown History Pregabalin [Lyrica] 75 mg PO BID 10/13/16 10/13/16 Unknown History Quetiapine Fumarate [Seroquel] 100 mg PO QHS 10/13/16 10/13/16 Unknown History amLODIPine [Norvasc] 5 mg PO DAILY 10/13/16 10/13/16 Unknown History clonazePAM [Klonopin] 1 mg PO BID PRN 10/13/16 10/13/16 Unknown History Active Meds: Active Medications Lipase/Protease/Amylase (Pancreaze Dr 10,500 Unit) 1 each FEEDTUBE PRN PRN PRN Reason: For Clogged Feeding Tube Dextrose (D50w (25gm)) 0 ml IV ONCE PRN PRN Reason: Hypoglycemia Enoxaparin Sodium (Lovenox) 30 mg SUB-Q QDAY JULI Last Admin: 10/13/16 11:11 Dose: 30 mg Hydrophilic Ointment (Vaseline Lip Therapy) 1 applic TP Q2HR PRN PRN Reason: Dry Lips Insulin Human Regular 100 (units/ Sodium Chloride) 100 mls @ 1 mls/hr IV TITR JULI; 1 UNITS/HR PRN Reason: Protocol Last Titration: 10/13/16 12:26 Dose: 10 units/hr, 10 mls/hr Midazolam HCl (Versed/Ns 100mg/100ml) 100 mg in 100 mls @ 1 mls/hr IV TITR JULI ; 1 MG/HR PRN Reason: Protocol Last Titration: 10/13/16 06:31 Dose: 5 mg/hr, 5 mls/hr Sodium Chloride (Nacl 0.9% 1000 Ml) 1,000 mls @ 150 mls/hr IV DIRECT JULI Fentanyl Citrate (Fentanyl Drip Premix) 2,000 mcg in 100 mls @ 4.082 mls/hr IV TITR JULI; 1 MCG/KG/HR PRN Reason: Protocol Last Titration: 10/13/16 12:26 Dose: 3 mcg/kg/hr, 12.247 mls/hr Dextrose (D5w) 1,000 mls @ 125 mls/hr IV DIRECT JULI Levofloxacin/Dextrose (Levaquin 500mg/100ml) 500 mg in 100 mls @ 100 mls/hr IV Q48H JULI PRN Reason: Protocol Multi-Ingred Cream/Lotion/Oil/Oint (Artificial Tears Ophth Oint) 1 applic OU Q4HR PRN PRN Reason: Dry Eye(s) Ondansetron HCl (Zofran) 4 mg IV Q8H PRN PRN Reason: N/V unrelieved by Reglan Simple Syrup (Simple Syrup) 15 ml FEEDTUBE PRN PRN PRN Reason: Hypoglycemia Simple Syrup (Simple Syrup) 30 ml FEEDTUBE PRN PRN PRN Reason: Hypoglycemia Sodium Bicarbonate (Sodium Bicarbonate) 325 mg FEEDTUBE PRN PRN PRN Reason: For Clogged Feeding Tube Sodium Chloride (Nacl 0.9% 500 Ml) 1 ml IV DIRECT JULI Physical Examination Vital signs: Vital Signs Pulse Resp BP Pulse Ox 120 H 32 H 104/78 99 10/13/16 04:04 10/13/16 04:04 10/13/16 04:04 10/13/16 04:04 Results - Laboratory Findings CBC and BMP: 10/13/16 04:22 10/13/16 16:14 ABG POC ABG pH 7.085 (7.35-7.45) L 10/13/16 05:22 POC ABG pCO2 28.8 (35-45) L 10/13/16 05:22 POC ABG pO2 375 (80-105) H 10/13/16 05:22 POC ABG HCO3 8.6 10/13/16 05:22 POC ABG Total CO2 10 10/13/16 05:22 POC ABG O2 Sat 100 10/13/16 05:22 Abnormal lab findings: Abnormal Labs 10/13/16 10/13/16 10/13/16 06:38 06:38 07:23 Potassium 6.2 H* Carbon Dioxide 8 L* BUN 85 H Creatinine 2.8 H Glucose 602 H* POC Glucose 495 H Calcium 7.9 L Phosphorus 6.9 H D Magnesium 3.0 H 10/13/16 10/13/16 10/13/16 08:49 08:55 10:12 Potassium 5.6 H Carbon Dioxide 11 L BUN 77 H Creatinine 2.7 H Glucose 457 H POC Glucose > 500 H 424 H Calcium 8.0 L Phosphorus Magnesium 10/13/16 10/13/16 10/13/16 10:44 11:22 12:20 Potassium 5.4 H Carbon Dioxide 14 L BUN 72 H Creatinine 2.6 H Glucose 383 H POC Glucose 391 H 313 H Calcium 8.2 L Phosphorus Magnesium
[2016-10-13 13:24] LABS: Sodium, Urine 10 mEq/L
--- NOTE | 2016-10-13 13:47 | Event Note ---
Date: 10/13/16 pt seen and examined, admitted this am with AMS, DKA and acute renal failure. continue current Mx as dictated in h and P.
[2016-10-13] MEDS ORDERED: D5/0.45NS 1,000 ML IV SCH (14:00)
[2016-10-13] MEDS ORDERED: D5NS 0.2% 1,000 ML IV SCH (14:00)
--- NOTE | 2016-10-13 14:40 | Admit Criteria Form ---
Admission Criteria Documentation: DIABETES Clinical Indications for Admission to Inpatient Care (Place 'X' for any and all applicable criteria): Admission is indicated by presence of ALL (if I & II) or ANY ONE (if III or IV) of the following (1)(2)(3)(4): [X ]I. Diabetes is uncontrolled as indicated by ANY ONE of the following: [X ]a) Diabetic ketoacidosis as indicated by ALL of the following (8): [X ]i) Hyperglycemia (eg, plasma glucose greater than 200 mg /dL (11.1 mmol/L)) [X ]ii) Acidosis (eg, arterial pH less than 7.30, serum bicarbonate level less than 15 mEq/L (mmol/L)) [X ]iii) Moderate ketonuria or ketonemia [ ]b) Hyperglycemic hyperosmolar state as indicated by ALL of the following(9)(10): [ ]i) Neurologic dysfunction (eg, stupor, coma, hemiparesis , seizure)(13) [ ]ii) Plasma glucose greater than 600 mg/dL (33.3 mmol/L) [ ]iii) Serum osmolality greater than 320 mOsm/kg (mmol/kg) [ ]c) Severe signs or symptoms secondary to hyperglycemia indicated by ANY ONE of the following: [ ]i) Altered mental status(10) [ ]ii) Significant hypovolemia or dehydration [ ]iii) Intractable nausea or vomiting [ ]iv) Unexplained fever or severe infection [ ]v) Severe electrolyte abnormality (eg, hypokalemia, hyperkalemia, hypernatremia) [X ]II. Management at other levels of care (Also use Diabetes: Observation Care as appropriate) is not feasible because of ANY ONE of the following: [ ]a) Condition was not adequately corrected with treatment at other levels of care. [X ]b) Treatment at other levels of care is not appropriate because of condition severity (eg, hyperosmolar coma). [ ]III. Contraindications and/or Inappropriate clinical situations for Observational Care in patients with Diabetes, when ANY ONE of the following is required: [ ]a) Patient require specific diagnostic workup or therapeutic intervention 22 [ ]b) Patient with abnormal vital signs or altered mental status 23 [ ]IV. General contraindications and/or Inappropriate clinical situations for Observational Care in patients with Diabetes, when ANY ONE of the following is required: [ ]a) Prediction of prolongation of LOS based on ANY ONE of the following may be considered as a contraindication for observational care 2, 3, 4, 5, 6, 7, 8, 9, 10, 11 [ ]i) Age > 65 yrs. [ ]ii) Patient arriving by ambulance [ ]iii) Patient with high acuity [ ]iv) Patient requiring vital sign monitoring [ ]v) Patient on IV medication [ ]b) Systolic blood pressures 180mmHg 3,12 [ ]c) Patient with altered mental status including delirium and other alteration of consciousness, (3) [ ]d) Patient whose discharge disposition will be to a senior living home or rehabilitation home should not be managed in Emergency Department Observation Unit. CMS rule requires 3 days hospital stay before such placement.3,13 [ ]e) Patient with failure to thrive due to broad array of etiologies 3,16,17 [ ]f) Inability to ambulate 3,14 Extended stay beyond goal length of stay may be needed for(3)(20): [ ]a) Treatment of precipitating causes [ ]b) Development of hypoglycemia [ ]c) Complications of treatment [ ]d) Complications of decompensated diabetes (eg, acute gastric dilatation, persistent metabolic or neurologic derangement) [ ]e) Active Comorbidities [ ]f) Older patients( 65 years or older) The original [employer] content created by [employer] has been revised. The portions of the content which have been revised are identified through the use of italic text or in bold,and [facility] has neither reviewed nor approved the modified material. All other unmodified content is copyright [employer]. Please see references footnoted in the original [employer] edition 2016 Admission Criteria Met: Yes
[2016-10-13] MEDS ORDERED: D5/0.45NS 1,000 ML IV ONE ×2 (14:46)
[2016-10-13 16:57] LABS: BUN/Creatinine Ratio 32.22; Calcium 7.7 mg/dL (8.4-10.2); Chloride 110.4 mmol/L (98-107); Potassium 3.9 mmol/L (3.6-5.0)
[2016-10-13] MEDS ORDERED: PROTONIX IV SCH (18:00)
[2016-10-13 18:43] LABS: ISTAT Base Excess -6; ISTAT HCO3 19.1; ISTAT PCO2 30.6 (35-45); ISTAT PH 7.404 (7.35-7.45); ISTAT PO2 218 (80-105); ISTAT SO2 100; ISTAT TCO2 20
[2016-10-13] MEDS: LOPRESSOR IV SCH (19:55)
--- NOTE | 2016-10-13 21:38 | Consultation ---
PULMONARY CRITICAL CARE CONSULT NOTE CONSULTING PHYSICIAN: Dr. Norwood, hospitalist. REASON FOR CONSULTATION: Acute respiratory failure, DKA. CHIEF COMPLAINT AND HISTORY OF PRESENT ILLNESS: The patient is a 66-year-old -[place] female. She does have a past medical history significant amongst other things both for a diagnosis of asthma, but also diabetes who according to the EMS notes, was found unresponsive by her ; however, he mentions that over the preceding few days, she is being somnolent, still lethargic, mostly he had spoken to her about coming to the hospital, she had refused. Today talking with her, he could not get her to stay alert, so he called [facility]. She has had nausea and vomiting for the last few days. They had blamed it on a stomach virus. In the Emergency Room, her breathing slowed. She became agonal and nasal trumpet was placed. In the Emergency Room, she was obtunded essentially she was intubated, both for airway protection, but also for ventilatory support. When I stopped by to see her, she was on mechanical ventilator. She was riding in the set rate of 20 with a tidal volume of 450 and a PEEP of 5. She was nonresponsive. The patient was sedated. and was in the room. With regard to tobacco use/abuse history, the records show that she is a never smoker as corroborated by her . That is really is as much of the history of presentation as I have. He denies any trauma. He denies any hemoptysis or hematemesis at home. PAST MEDICAL HISTORY: Again, significant for hypertension, diabetes, arthritis. PAST SURGICAL HISTORY: She has had a thyroidectomy in the past. She has had a cholecystectomy. She has had a hysterectomy. MEDICATIONS: She was on at the time I stopped by to see her, according to the medication administration record, included the following: She was on the dextrose sodium chloride drip DKA protocol, Lovenox 30 mg subcutaneously daily. Fentanyl drip was going, I believe about 2 mcg/kg per hour. She was on insulin at 6 units per hour. Levaquin 500 mg IV q.48 h. Versed drip was going at 5 mg an hour. She was on Zofran 4 mg IV q.8 h. p.r.n. nausea and vomiting; p.r.n., sodium bicarbonate for clogged tube. ALLERGIES: Penicillins. Nature of this allergy is unknown. DIET: Well-built lady. denies acute weight loss or gain preceding few weeks to months. FAMILY AND SOCIAL HISTORY: Lives in the community. No alcohol, tobacco, or illicit drug use or abuse. Family history, otherwise noncontributory. REVIEW OF SYSTEMS: Unobtainable secondary to the patient's medical and mental condition. Since she has been here, no gross hematochezia or melena. No gross hematuria. No hematemesis. No bloody tracheal secretions. No witnessed seizures. PHYSICAL EXAMINATION: VITAL SIGNS: At initial presentation in the Emergency Room, temperature 98.0, pulse was 120 at presentation, respiratory rate was 32, blood pressure was 104/78. Oxygen sats were 99%, inspired oxygen concentration was not recorded. HEAD, EYES, EARS, NOSE, AND THROAT: Pupils are equal, round, reactive to light, about 2 mm to 3 mm, very sluggishly reactive. Extraocular muscle movements could not be assessed. Grossly, there were no palpable lymph nodes in the supraclavicular or submandibular lymph node chains. LUNGS: Auscultation of both lung yarbrough unremarkable. Lungs are clear bilaterally. Good bilateral breath sounds. HEART: Heart sounds 1 and 2 are heard. They were regular in rate and rhythm at time of my evaluation. ABDOMEN: Soft, full, bowel sounds are positive, nontender. EXTREMITIES: Without overt digital clubbing, cyanosis, or pedal edema. NEUROLOGIC: Exam was grossly nonfocal. LABORATORY DATA: From my review are as follows: White cell count on admission 17,400 with a hemoglobin of 12.7, hematocrit of 41.4, and platelet count of 324. No reported band forms. Arterial blood gas showed a pH of 7.09, pCO2 of 29, pO2 of 375 that was on 100% FiO2. Serum sodium was 140 at presentation, potassium was 6.2, chloride was 99, bicarbonate was 8, BUN was 85, creatinine was 2.8, and glucose was 602. Lactic acid was elevated at 2.6, phosphorus 6.9, magnesium 3.0. Liver function test within normal limits. Cardiac enzymes within normal limits. Lipase was elevated at 2185. Urinalysis negative for nitrites and leukocyte esterase, and bland really. Ketones elevated 107.3. Radiographic studies have been reviewed. I have also reviewed the radiologist's interpretation. Chest x-ray done earlier today essentially showed ET tube in the right main stem bronchus, it is unclear if that has been pushed, pulled backwards, thus repeat stat chest x-ray will be done. A CT scan was done of the head that was read as no evidence of acute intracranial process. CT of the abdomen and pelvis was also done, moderate diverticulosis of the colon, streaking in the mesentery surrounding the pancreas, suspicious for acute pancreatitis. ASSESSMENT AND PLAN: We have an elderly lady in with diabetic ketoacidosis, but really septic and with evidence of acute pancreatitis. From a respiratory standpoint, she is going to be kept on mechanical ventilator. We are going to get a stat chest x-ray to confirm ET tube position and I am also going to get a stat ABG and make adjustments to the ventilator as necessary. We will continue sedation, targeting the RASS of -1. Aspiration precautions and other ventilator bundles will be instituted. Bronchodilators will be scheduled on short term basis and p.r.n. thereafter. The hope is we can begin weaning her as early as tomorrow especially once her diabetic ketoacidosis has been corrected and hopefully improved. From a cardiovascular standpoint, she had 1 or 2 episodes of hypotension. Right now she is doing fine. Volume resuscitation is ongoing. Certainly an element of intravascular volume depletion at presentation and in the setting of acute pancreatitis also, hopefully that does not progress significantly. Acute coronary syndrome workup will be at the behest of the attending physician. From an infectious disease standpoint, I note the leukocytosis, has empirically been started on Levaquin that is appropriate. She has been pancultured. Anti-infectives will be deescalated based on results of clinical and microbiologic data. I am going to get a stat CRP level to better understand the true infectious potential of this leukocytosis and to trend. We will also trend lactic acid levels during this hospitalization. From a GI and nutritional standpoint, she will remain n.p.o. for now. I will put her on GI prophylaxis. Aspiration precautions will be maintained. We will trend lipase levels and see how that improves. From a renal standpoint, electrolyte abnormalities have been corrected. The BUN and creatinine ratio is improving with volume hydration and Nephrology evaluation will be at the behest of the attending physician. Inputs and outputs will be monitored. Electrolytes will be corrected as necessary. From a [facility] [facility] standpoint, CT imaging is negative. The exam was grossly nonfocal. We will follow her clinically and treat her sepsis. From a general and hospital healthcare maintenance standpoint, she is going to be placed on GI prophylaxis. She is on DVT prophylaxis. Flu and pneumonia vaccination will be per protocol. Thank you very much for the consult, Dr. Elias Robles. We will follow along. We will make further recommendations as the picture progresses/becomes clearer. At this point, I spent about 30-35 minutes of critical care time without overlap and excluding any procedural time that may be necessary. She is critically ill on life-sustaining interventions including mechanical ventilatory support at high risk for further deterioration including . JOB# [id number] MIGUEL/RAYMON
[2016-10-13 23:57] LABS: Calcium 7.8 mg/dL (8.4-10.2); Chloride 114.6 mmol/L (98-107); Potassium 4.4 mmol/L (3.6-5.0)
[2016-10-14] MEDS ORDERED: NACL 0.9% 500 ML 500 ML IV ONE (00:10)
[2016-10-14] MEDS: LOPRESSOR IV SCH ×4 (00:25→23:20)
[2016-10-14] MEDS ORDERED: TYLENOL PR ONE ×3 (00:56→09:17)
[2016-10-14] MEDS ORDERED: CARDIZEM IV ONE (01:59)
[2016-10-14 05:57] LABS: ISTAT Base Excess -7; ISTAT HCO3 17.3; ISTAT PCO2 28.2 (35-45); ISTAT PH 7.397 (7.35-7.45); ISTAT PO2 125 (80-105); ISTAT SO2 99; ISTAT TCO2 18
[2016-10-14 06:47] LABS: Calcium 7.4 mg/dL (8.4-10.2); Chloride 115.4 mmol/L (98-107)
[2016-10-14 06:55] LABS: Potassium 4.5 mmol/L (3.6-5.0)
--- NOTE | 2016-10-14 09:15 | Progress Note ---
Assessment and Plan - Patient Problems (1) Acute on chronic renal failure Current Visit: Yes Status: Acute Plan to address problem: Renal function improving, current serum creatinine 1.5 today, admission serum creatinine 2.6 Renal ultrasound result- pending DKA- on Insulin drip On D5W@ 150 ml/hr Obtain daily weights Renally dose medications Strict I/O monitoring, stewart catheter present Will monitor renal function closely Renal plan of care reviewed with Dr. Paniagua (2) Hypophosphatemia Current Visit: Yes Status: Acute Plan to address problem: K-phos 30 mmol IV x1 (3) DKA (diabetic ketoacidoses) Current Visit: Yes Status: Acute Qualifiers: Diabetes mellitus type: D Diabetes mellitus complication detail: D Plan to address problem: On insulin drip (4) Hyperkalemia Current Visit: Yes Status: Acute Plan to address problem: Resolved (5) Respiratory failure Current Visit: Yes Status: Acute Qualifiers: Chronicity: C Respiratory failure complication: R Plan to address problem: Intubated (6) Acidosis Current Visit: Yes Status: Acute Plan to address problem: Acidosis secondary to DKA, no bicarb drip needed, this will correct itself as DKA improves on insulin drip, currently improving Subjective Date of service: 10/14/16 Principal diagnosis: Acute on Chronic Kidney Disease Interval history: Patient still in E.R awaiting a bed to go to ICU. Patient is intubated but is awake with eyes open and is agitated. Wrist restraints noted. at bedside. Objective - Vital Signs Vital signs: Vital Signs - 12hr 10/13/16 10/13/16 10/13/16 21:30 22:00 22:30 Temperature Pulse Rate 142 H 142 H 143 H Pulse Rate [ Right Radial] Respiratory 20 20 Rate Blood Pressure 107/67 102/61 106/69 O2 Sat by Pulse 100 100 100 Oximetry 10/13/16 10/13/16 10/13/16 23:00 23:30 23:50 Temperature Pulse Rate 145 H 145 H 145 H Pulse Rate [ Right Radial] Respiratory 20 20 Rate Blood Pressure 103/63 91/60 103/61 O2 Sat by Pulse 100 100 100 Oximetry 10/14/16 10/14/16 10/14/16 00:00 00:30 01:00 Temperature Pulse Rate 144 H 141 H 142 H Pulse Rate [ 84 Right Radial] Respiratory 20 20 20 Rate Blood Pressure 86/60 102/64 97/57 O2 Sat by Pulse 98 100 100 Oximetry 10/14/16 10/14/16 10/14/16 01:03 01:30 02:00 Temperature 100.3 F H Pulse Rate 142 H 129 H Pulse Rate [ Right Radial] Respiratory 20 20 Rate Blood Pressure 88/57 94/57 O2 Sat by Pulse 100 100 Oximetry 10/14/16 10/14/16 10/14/16 02:06 02:30 03:00 Temperature 98.9 F Pulse Rate 144 H 82 84 Pulse Rate [ Right Radial] Respiratory 20 20 Rate Blood Pressure 92/51 98/52 O2 Sat by Pulse 100 100 Oximetry 10/14/16 10/14/16 10/14/16 03:30 04:01 04:30 Temperature Pulse Rate 83 86 86 Pulse Rate [ Right Radial] Respiratory 20 20 20 Rate Blood Pressure 95/52 103/56 107/54 O2 Sat by Pulse 100 100 100 Oximetry 10/14/16 10/14/16 10/14/16 05:00 05:16 06:01 Temperature Pulse Rate 86 87 87 Pulse Rate [ Right Radial] Respiratory 20 18 Rate Blood Pressure 105/57 105/57 104/54 O2 Sat by Pulse 100 100 100 Oximetry 10/14/16 10/14/16 10/14/16 07:00 07:30 08:09 Temperature Pulse Rate 86 89 90 Pulse Rate [ Right Radial] Respiratory 21 20 Rate Blood Pressure 124/55 116/57 114/54 O2 Sat by Pulse 100 100 100 Oximetry - General Appearance General appearance: intubated, other (eyes open, agitated) EENT: ATNC, PERRL Neck: no JVD, supple Respiratory: Present: Clear to Ascultation Cardiology: regular, S1S2 Gastrointestinal: normoactive bowel sounds Integumentary: warm and dry Neurologic: other (Intubated but awake and agitated) Musculoskeletal: other (has 1+ edema around bilateral ankle area of feet, has stewart catheter) - Lab 10/13/16 04:22 10/14/16 06:12 Most recent lab results Calcium 7.4 mg/dL (8.4-10.2) L 10/14/16 06:12 Phosphorus 1.0 mg/dL (2.5-4.5) L D 10/14/16 07:03 Magnesium 3.0 mg/dL (1.7-2.3) H 10/13/16 06:38 Urine Creatinine < 4.2 mg/dL (0.1-20.0) 10/13/16 Unknown Urine Sodium 10 mEq/L 10/13/16 Unknown Urine Total Protein < 4 mg/dL (5-11.8) L 10/13/16 Unknown - Imaging Kidney/bladder ultrasound: pending
[2016-10-14] MEDS ORDERED: KPHOS 30 MMOL in NACL 0.9% 500 ML 500 ML IV ONE (09:58)
[2016-10-14] MEDS ORDERED: KCL 20 MEQ in D5NS 0.2% 1,000 ML IV SCH (10:00)
--- NOTE | 2016-10-14 10:15 | XRay Report ---
AP CHEST: HISTORY: Endotracheal tube position The endotracheal tube has been retracted and is now in good position terminating 3.3 cm superior to the yaneth. A nasogastric tube terminates in the mid stomach. AP view of the chest demonstrates a normal mediastinal and cardiac contour with clear lungs and normal bony and soft tissue structures. IMPRESSION: Unremarkable AP chest.
--- NOTE | 2016-10-14 10:16 | XRay Report ---
AP CHEST: HISTORY: Followup respiratory failure Lines and tubes remain in position. There is poor inspiration. Heart size remains normal. The lungs are generally clear. No new acute process is appreciated. IMPRESSION: Unremarkable AP chest.
[2016-10-14] MEDS: TYLENOL PR PRN ×2 (10:27→18:14)
--- NOTE | 2016-10-14 10:28 | Ultrasound Report ---
ULTRASOUND RENAL BILATERAL HISTORY: Renal failure. TECHNIQUE: transabdominal ultrasound with color Doppler interrogation. FINDINGS: The right kidney measures 12.5 x 5.0 x 4.7cm. Right renal cortex: 1.6cm. The left kidney measures 10.1 x 4.0 x 3.9cm. Left renal cortex: 1.3cm. Scans of the kidneys show normal renal contours. There is normal central calyceal clustering and good preservation of the cortical thickness. There is no evidence of mass or hydronephrosis. The views of the bladder and the region of the ureters appear normal. IMPRESSION: Unremarkable renal ultrasound.
--- NOTE | 2016-10-14 10:30 | Progress Note ---
Assessment and Plan Assessment and plan: Acute Respiratory failure * Intubated and sedated * repeat ABG * wean off vent as tolerated Acute on chronic renal failure * Renal function improving, current serum creatinine 1.5 today, admission serum creatinine 2.6 * Renal ultrasound result- pending * Renally dose medications * Strict I/O monitoring DKA (diabetic ketoacidoses) * On insulin drip * On D5W@ 150 ml/hr Hypophosphatemia, K-phos 30 mmol IV x1 Hyperkalemia, Resolved Metabolic encephalopathy, * cont to monitor, CT head no acute change * likley due to severe DKA Acute pancreatitis * Trend lipase * Continue aggressive iv fluid hydration, and keep nothing by mouth Vaginal candidiasis * Place on Diflucan and local Miconazole cream Hypernatremia, change IV fluid to D5 quarter normal saline History Interval history: Patient seen and examined Still in the ER to get ICU bed Patient is intubated Hospitalist Physical - Physical exam Narrative exam: GENERAL: -[place] female lying on bed appeared to be in no discomfort. Patient is intubated HEENT: Normocephalic. Atraumatic. No conjunctival congestion or icterus. Patient has dry mucous membranes. NECK: Supple. Trachea midline. ETT in place CHEST/LUNGS: Clear to auscultated bilaterally, breathing nonlabored. No wheezes crackles or rhonchi. HEART/CARDIOVASCULAR: Regular in rate and rhythm. S1 and S2 positive. ABDOMEN: Abdomen is soft, nontender. Patient has normal bowel sounds. SKIN: There is no rash. Warm and dry. NEURO: sedated MUSCULOSKELETAL: No joint effusion or tenderness. EXTRIMITY: No edema, no cyanosis or clubbing. . - Constitutional Vitals: Temp Pulse Resp BP Pulse Ox 101.4 F H 93 H 20 121/57 99 10/14/16 09:20 10/14/16 09:00 10/14/16 09:00 10/14/16 09:00 10/14/16 09:30 Results - Labs CBC & Chem 7: 10/14/16 12:02 10/14/16 12:02 Labs: Laboratory Last Values WBC 17.4 K/mm3 (4.5-11.0) H 10/13/16 04:22 RBC 3.99 M/mm3 (3.65-5.03) 10/13/16 04:22 Hgb 12.7 gm/dl (10.1-14.3) 10/13/16 04:22 Hct 41.4 % (30.3-42.9) 10/13/16 04:22 MCV 104 fl (79-97) H 10/13/16 04:22 MCH 32 pg (28-32) 10/13/16 04:22 MCHC 31 % (30-34) 10/13/16 04:22 RDW 13.5 % (13.2-15.2) 10/13/16 04:22 Plt Count 324 K/mm3 (140-440) 10/13/16 04:22 Add Manual Diff Complete 10/13/16 04:22 Total Counted 100 10/13/16 04:22 Seg Neuts % (Manual) 71.0 % (40.0-70.0) H 10/13/16 04:22 Band Neutrophils % 9.0 % 10/13/16 04:22 Lymphocytes % (Manual) 12.0 % (13.4-35.0) L 10/13/16 04:22 Reactive Lymphs % (Man) 0 % 10/13/16 04:22 Monocytes % (Manual) 8.0 % (0.0-7.3) H 10/13/16 04:22 Eosinophils % (Manual) 0 % (0.0-4.3) 10/13/16 04:22 Basophils % (Manual) 0 % (0.0-1.8) 10/13/16 04:22 Metamyelocytes % 0 % 10/13/16 04:22 Myelocytes % 0 % 10/13/16 04:22 Promyelocytes % 0 % 10/13/16 04:22 Blast Cells % 0 % 10/13/16 04:22 Nucleated RBC % Not Reportable 10/13/16 04:22 Seg Neutrophils # Man 12.4 K/mm3 (1.8-7.7) H 10/13/16 04:22 Band Neutrophils # 1.6 K/mm3 10/13/16 04:22 Lymphocytes # (Manual) 2.1 K/mm3 (1.2-5.4) 10/13/16 04:22 Abs React Lymphs (Man) 0.0 K/mm3 10/13/16 04:22 Monocytes # (Manual) 1.4 K/mm3 (0.0-0.8) H 10/13/16 04:22 Eosinophils # (Manual) 0.0 K/mm3 (0.0-0.4) 10/13/16 04:22 Basophils # (Manual) 0.0 K/mm3 (0.0-0.1) 10/13/16 04:22 Metamyelocytes # 0.0 K/mm3 10/13/16 04:22 Myelocytes # 0.0 K/mm3 10/13/16 04:22 Promyelocytes # 0.0 K/mm3 10/13/16 04:22 Blast Cells # 0.0 K/mm3 10/13/16 04:22 WBC Morphology Not Reportable 10/13/16 04:22 Hypersegmented Neuts Not Reportable 10/13/16 04:22 Hyposegmented Neuts Not Reportable 10/13/16 04:22 Hypogranular Neuts Not Reportable 10/13/16 04:22 Smudge Cells Not Reportable 10/13/16 04:22 Toxic Granulation Not Reportable 10/13/16 04:22 Toxic Vacuolation Not Reportable 10/13/16 04:22 Dohle Bodies Not Reportable 10/13/16 04:22 Pelger-Huet Anomaly Not Reportable 10/13/16 04:22 Alka Rods Not Reportable 10/13/16 04:22 Platelet Estimate Consistent w auto 10/13/16 04:22 Clumped Platelets Not Reportable 10/13/16 04:22 Plt Clumps, EDTA Not Reportable 10/13/16 04:22 Large Platelets Not Reportable 10/13/16 04:22 Giant Platelets Not Reportable 10/13/16 04:22 Platelet Satelliting Not Reportable 10/13/16 04:22 Plt Morphology Comment Not Reportable 10/13/16 04:22 RBC Morphology Not Reportable 10/13/16 04:22 Dimorphic RBCs Not Reportable 10/13/16 04:22 Polychromasia Rare 10/13/16 04:22 Hypochromasia Not Reportable 10/13/16 04:22 Poikilocytosis Not Reportable 10/13/16 04:22 Anisocytosis 1+ 10/13/16 04:22 Microcytosis Not Reportable 10/13/16 04:22 Macrocytosis Not Reportable 10/13/16 04:22 Spherocytes Not Reportable 10/13/16 04:22 Pappenheimer Bodies Not Reportable 10/13/16 04:22 Sickle Cells Not Reportable 10/13/16 04:22 Target Cells Not Reportable 10/13/16 04:22 Tear Drop Cells Not Reportable 10/13/16 04:22 Ovalocytes Not Reportable 10/13/16 04:22 Helmet Cells Not Reportable 10/13/16 04:22 Higgins-Sunnyside Bodies Not Reportable 10/13/16 04:22 [place] Rings Not Reportable 10/13/16 04:22 Dale Cells Not Reportable 10/13/16 04:22 Bite Cells Not Reportable 10/13/16 04:22 Crenated Cell Not Reportable 10/13/16 04:22 Elliptocytes Not Reportable 10/13/16 04:22 Acanthocytes (Spur) Not Reportable 10/13/16 04:22 Rouleaux Not Reportable 10/13/16 04:22 Hemoglobin C Crystals Not Reportable 10/13/16 04:22 Schistocytes Not Reportable 10/13/16 04:22 Malaria parasites Not Reportable 10/13/16 04:22 David Bodies Not Reportable 10/13/16 04:22 Hem Pathologist Commnt No 10/13/16 04:22 POC ABG pH 7.397 (7.35-7.45) 10/14/16 05:16 POC ABG pCO2 28.2 (35-45) L 10/14/16 05:16 POC ABG pO2 125 (80-105) H 10/14/16 05:16 POC ABG HCO3 17.3 10/14/16 05:16 POC ABG Total CO2 18 10/14/16 05:16 POC ABG O2 Sat 99 10/14/16 05:16 POC ABG Base Excess -7 10/14/16 05:16 VBG pH 7.020 (7.320-7.420) L* 10/13/16 04:22 FiO2 35 % 10/14/16 05:16 Sodium 149 mmol/L (137-145) H 10/14/16 06:12 Potassium 4.5 mmol/L (3.6-5.0) 10/14/16 06:12 Chloride 115.4 mmol/L (98-107) H 10/14/16 06:12 Carbon Dioxide 17 mmol/L (22-30) L 10/14/16 06:12 Anion Gap 21 mmol/L 10/14/16 06:12 BUN 45 mg/dL (7-17) H 10/14/16 06:12 Creatinine 1.5 mg/dL (0.7-1.2) H 10/14/16 06:12 Estimated GFR 42 ml/min 10/14/16 06:12 BUN/Creatinine Ratio 30.00 % 10/14/16 06:12 Glucose 139 mg/dL (65-100) H 10/14/16 06:12 POC Glucose 158 (70-105) H 10/14/16 09:16 Osmolality 332 Mosm/kg 10/14/16 07:03 Lactic Acid 1.8 mmol/L (0.7-2.0) 10/14/16 07:03 Calcium 7.4 mg/dL (8.4-10.2) L 10/14/16 06:12 Phosphorus 1.0 mg/dL (2.5-4.5) L D 10/14/16 07:03 Magnesium 3.0 mg/dL (1.7-2.3) H 10/13/16 06:38 Total Bilirubin 0.2 mg/dL (0.1-1.2) 10/13/16 04:22 AST 10 units/L (5-40) 10/13/16 04:22 ALT 7 units/L (7-56) 10/13/16 04:22 Alkaline Phosphatase 75 units/L (35-129) 10/13/16 04:22 Ammonia 35.0 umol/L (25-60) 10/13/16 05:40 Total Creatine Kinase 107 units/L (30-135) 10/13/16 04:22 CK-MB (CK-2) 3.1 ng/mL (0.0-4.0) 10/13/16 04:22 CK-MB (CK-2) Rel Index 2.8 (0-4) 10/13/16 04:22 Troponin T < 0.010 ng/mL (0.00-0.029) 10/14/16 07:03 C-Reactive Protein 10.50 mg/dL (0.00-1.30) H 10/13/16 16:14 Total Protein 6.2 g/dL (6.3-8.2) L 10/13/16 04:22 Albumin 3.7 g/dL (3.9-5) L 10/13/16 04:22 Albumin/Globulin Ratio 1.5 % 10/13/16 04:22 Lipase 738 units/L (13-60) H 10/14/16 07:03 Urine Color Yellow (Yellow) 10/13/16 05:03 Urine Turbidity Clear (Clear) 10/13/16 05:03 Urine pH 5.0 (5.0-7.0) 10/13/16 05:03 Ur Specific [place] 1.017 (1.003-1.030) 10/13/16 05:03 Urine Protein 30 mg/dl mg/dL (Negative) 10/13/16 05:03 Urine Glucose (UA) >=500 mg/dL (Negative) 10/13/16 05:03 Urine Ketones 20 mg/dL (Negative) 10/13/16 05:03 Urine Blood Mod (Negative) 10/13/16 05:03 Urine Nitrite Neg (Negative) 10/13/16 05:03 Urine Bilirubin Neg (Negative) 10/13/16 05:03 Urine Urobilinogen < 2.0 mg/dL (<2.0) 10/13/16 05:03 Ur Leukocyte Esterase Neg (Negative) 10/13/16 05:03 Urine WBC (Auto) < 1.0 /HPF (0.0-6.0) 10/13/16 05:03 Urine RBC (Auto) < 1.0 /HPF (0.0-6.0) 10/13/16 05:03 U Epithel Cells (Auto) < 1.0 /HPF (0-13.0) 10/13/16 05:03 Urine Mucus Few /HPF 10/13/16 05:03 Urine Osmolality 487 Mosm/kg 10/13/16 Unknown Urine Creatinine < 4.2 mg/dL (0.1-20.0) 10/13/16 Unknown Protein/Creatinin Ratio 0.00 10/13/16 Unknown Urine Sodium 10 mEq/L 10/13/16 Unknown Urine Potassium 1.00 mEq/L 10/13/16 Unknown Urine Chloride 10.0 mEq/L (110-250) L 10/13/16 Unknown Urine Total Protein < 4 mg/dL (5-11.8) L 10/13/16 Unknown Ketones 107.3 mg/dL (0.2-2.8) H 10/13/16 04:22
[2016-10-14] MEDS ORDERED: LEVAQUIN 500MG/100ML 500 MG/100 ML BAG IV ONE (10:33)
[2016-10-14] MEDS ORDERED: D5/0.45NS 1,000 ML IV ONE (10:34)
[2016-10-14] MEDS: LEVAQUIN 500MG/100ML 500 MG/100 ML BAG IV SCH (11:00)
[2016-10-14] MEDS: LOVENOX SUB-Q SCH (11:00)
[2016-10-14] MEDS: PEPCID IV SCH ×2 (11:00→23:15)
[2016-10-14 11:14] LABS: ISTAT Base Excess -10; ISTAT HCO3 18.5; ISTAT PCO2 47.5 (35-45); ISTAT PH 7.198 (7.35-7.45); ISTAT PO2 97 (80-105); ISTAT SO2 96; ISTAT TCO2 20
[2016-10-14 12:14] LABS: Hematocrit 35.2 % (30.3-42.9); Hemoglobin 11.3 gm/dl (10.1-14.3); Mean Corpuscular HGB Conc 32 % (30-34); Mean Corpuscular Hemoglobin 31 pg (28-32); Mean Corpuscular Volume 98 fl (79-97); Platelet Count 200 K/mm3 (140-440); Red Cell Distribution Width 13.1 % (13.2-15.2); White Blood Count 13.4 K/mm3 (4.5-11.0)
[2016-10-14 12:37] LABS: BUN/Creatinine Ratio 27.14; Calcium 7.5 mg/dL (8.4-10.2); Chloride 110.7 mmol/L (98-107); Potassium 4.2 mmol/L (3.6-5.0)
[2016-10-14] MEDS: DIFLUCAN PO SCH (12:57)
--- NOTE | 2016-10-14 13:27 | Progress Note ---
Assessment and Plan - Patient Problems (1) Acute respiratory failure with hypercapnia Current Visit: Yes Status: Acute Plan to address problem: - resumed sedation and full AC support - will begin low dose seroquel for sedation without significant hypoventilation - continue bronchodilators and pulmonary toilet - continue aspiration precautions / VAP bundles - continue bronchodilators and pulmonary toilet - daily sedation vacations - contine empiric AB's (2) Altered mental status Current Visit: Yes Status: Acute Qualifiers: Altered mental status type: A Coma depth: C Coma timing: C Plan to address problem: - treat DKA - treat sepsis - correct acidosis - daily sedation vacations (3) LUCY (acute kidney injury) Current Visit: Yes Status: Acute Plan to address problem: - gentle hydration - improving - follow I's & O's (4) DKA (diabetic ketoacidoses) Current Visit: Yes Status: Acute Qualifiers: Diabetes mellitus type: D Diabetes mellitus complication detail: D Plan to address problem: - on IV insulin at 6units/hr currently - follow DKA protocol (5) Sepsis Current Visit: No Status: Acute Qualifiers: Sepsis type: S Plan to address problem: - follow cultures (NGTD) - continue empiric AB's (6) Discharge planning issues Current Visit: No Status: Acute Plan to address problem: ....remains critically ill on life sustaining therapies including MVS at high risk for further deterioration including ....34' CCT Subjective Date of service: 10/14/16 Principal diagnosis: Acute on Chronic Kidney Disease Interval history: Seen and examined at bedside; 24 hour events reviewed; nursing and respiratory care staff consulted; no adverse overnight events reported to me; remains on MVS ; sedated; agitated earlier but failed weaning attempt; in room; remains on IV insulin therapy Objective Vital Signs - 12hr 10/14/16 10/14/16 10/14/16 01:30 02:00 02:06 Temperature Pulse Rate 142 H 129 H 144 H Respiratory 20 20 Rate Blood Pressure 88/57 94/57 O2 Sat by Pulse 100 100 Oximetry 10/14/16 10/14/16 10/14/16 02:30 03:00 03:30 Temperature 98.9 F Pulse Rate 82 84 83 Respiratory 20 20 20 Rate Blood Pressure 92/51 98/52 95/52 O2 Sat by Pulse 100 100 100 Oximetry 10/14/16 10/14/16 10/14/16 04:01 04:30 05:00 Temperature Pulse Rate 86 86 86 Respiratory 20 20 20 Rate Blood Pressure 103/56 107/54 105/57 O2 Sat by Pulse 100 100 100 Oximetry 10/14/16 10/14/16 10/14/16 05:16 06:01 07:00 Temperature Pulse Rate 87 87 86 Respiratory 18 21 Rate Blood Pressure 105/57 104/54 124/55 O2 Sat by Pulse 100 100 100 Oximetry 10/14/16 10/14/16 10/14/16 07:30 08:00 08:09 Temperature Pulse Rate 89 88 90 Respiratory 20 20 Rate Blood Pressure 116/57 114/54 114/54 O2 Sat by Pulse 100 100 100 Oximetry 10/14/16 10/14/16 10/14/16 08:30 09:00 09:20 Temperature 101.4 F H Pulse Rate 91 H 93 H Respiratory 17 20 Rate Blood Pressure 118/57 121/57 O2 Sat by Pulse 100 100 Oximetry 10/14/16 10/14/16 10/14/16 09:30 09:31 10:00 Temperature Pulse Rate 127 H 133 H Respiratory 20 17 Rate Blood Pressure 122/57 172/71 O2 Sat by Pulse 99 100 93 Oximetry 10/14/16 10/14/16 10/14/16 10:30 11:00 11:30 Temperature Pulse Rate 132 H 130 H 124 H Respiratory 23 15 20 Rate Blood Pressure 138/65 129/62 128/62 O2 Sat by Pulse 99 98 100 Oximetry 10/14/16 10/14/16 10/14/16 12:00 12:01 12:04 Temperature Pulse Rate 102 H 130 H 103 H Respiratory 20 Rate Blood Pressure 133/58 133/58 O2 Sat by Pulse 100 100 Oximetry 10/14/16 10/14/16 10/14/16 12:30 13:00 13:19 Temperature 99.7 F H Pulse Rate 93 H 91 H Respiratory 20 20 Rate Blood Pressure 115/55 133/55 O2 Sat by Pulse 100 100 Oximetry Constitutional: no acute distress, other (sedated) Eyes: non-icteric ENT: oropharynx moist Neck: supple, no lymphadenopathy Effort: mildly labored Ascultation: Bilateral: diminished breath sounds, rales Cardiovascular: regular rate and rhythm Gastrointestinal: normoactive bowel sounds, soft, non-tender, non-distended Integumentary: normal Extremities: no cyanosis, no edema, pulses normal, no ischemia or petechiae Neurologic: unable to assess Psychiatric: other (sedated) CBC and BMP: 10/14/16 12:02 10/14/16 12:02 ABG, PT/INR, D-dimer: ABG POC ABG pH 7.198 (7.35-7.45) L 10/14/16 11:03 POC ABG pCO2 47.5 (35-45) H 10/14/16 11:03 POC ABG pO2 97 (80-105) 10/14/16 11:03 POC ABG HCO3 18.5 10/14/16 11:03 POC ABG Total CO2 20 10/14/16 11:03 POC ABG O2 Sat 96 10/14/16 11:03 Abnormal lab findings: Abnormal Labs 10/13/16 10/13/16 10/13/16 06:38 06:38 07:23 WBC RBC MCV RDW POC ABG pH POC ABG pCO2 POC ABG pO2 Sodium Potassium 6.2 H* Chloride Carbon Dioxide 8 L* BUN 85 H Creatinine 2.8 H Glucose 602 H* POC Glucose 495 H Calcium 7.9 L Phosphorus 6.9 H D Magnesium 3.0 H C-Reactive Protein Lipase Urine Chloride Urine Total Protein 10/13/16 10/13/16 10/13/16 08:49 08:55 10:12 WBC RBC MCV RDW POC ABG pH POC ABG pCO2 POC ABG pO2 Sodium Potassium 5.6 H Chloride Carbon Dioxide 11 L BUN 77 H Creatinine 2.7 H Glucose 457 H POC Glucose > 500 H 424 H Calcium 8.0 L Phosphorus Magnesium C-Reactive Protein Lipase Urine Chloride Urine Total Protein 10/13/16 10/13/16 10/13/16 10:44 11:22 12:20 WBC RBC MCV RDW POC ABG pH POC ABG pCO2 POC ABG pO2 Sodium Potassium 5.4 H Chloride Carbon Dioxide 14 L BUN 72 H Creatinine 2.6 H Glucose 383 H POC Glucose 391 H 313 H Calcium 8.2 L Phosphorus Magnesium C-Reactive Protein Lipase Urine Chloride Urine Total Protein 10/13/16 10/13/16 10/13/16 13:32 14:44 15:57 WBC RBC MCV RDW POC ABG pH POC ABG pCO2 POC ABG pO2 Sodium Potassium Chloride Carbon Dioxide BUN Creatinine Glucose POC Glucose 296 H 210 H 190 H Calcium Phosphorus Magnesium C-Reactive Protein Lipase Urine Chloride Urine Total Protein 10/13/16 10/13/16 10/13/16 16:14 16:14 17:17 WBC RBC MCV RDW POC ABG pH POC ABG pCO2 POC ABG pO2 Sodium Potassium Chloride Carbon Dioxide 17 L BUN 58 H Creatinine 1.8 H Glucose 172 H POC Glucose 193 H Calcium 7.7 L Phosphorus Magnesium C-Reactive Protein 10.50 H Lipase Urine Chloride Urine Total Protein 10/13/16 10/13/16 10/13/16 17:55 18:32 19:41 WBC RBC MCV RDW POC ABG pH POC ABG pCO2 30.6 L POC ABG pO2 218 H Sodium Potassium Chloride Carbon Dioxide BUN Creatinine Glucose POC Glucose 192 H 177 H Calcium Phosphorus Magnesium C-Reactive Protein Lipase Urine Chloride Urine Total Protein 10/13/16 10/13/16 10/13/16 20:54 22:07 23:13 WBC RBC MCV RDW POC ABG pH POC ABG pCO2 POC ABG pO2 Sodium Potassium Chloride Carbon Dioxide BUN Creatinine Glucose POC Glucose 178 H 160 H 168 H Calcium Phosphorus Magnesium C-Reactive Protein Lipase Urine Chloride Urine Total Protein 10/13/16 10/13/16 10/14/16 23:25 Unknown 00:21 WBC RBC MCV RDW POC ABG pH POC ABG pCO2 POC ABG pO2 Sodium 148 H Potassium Chloride 114.6 H Carbon Dioxide 17 L BUN 56 H Creatinine 1.6 H Glucose 151 H POC Glucose 171 H Calcium 7.8 L Phosphorus Magnesium C-Reactive Protein Lipase Urine Chloride 10.0 L Urine Total Protein < 4 L 10/14/16 10/14/16 10/14/16 01:22 02:29 03:30 WBC RBC MCV RDW POC ABG pH POC ABG pCO2 POC ABG pO2 Sodium Potassium Chloride Carbon Dioxide BUN Creatinine Glucose POC Glucose 144 H 136 H 143 H Calcium Phosphorus Magnesium C-Reactive Protein Lipase Urine Chloride Urine Total Protein 10/14/16 10/14/16 10/14/16 04:28 05:16 05:44 WBC RBC MCV RDW POC ABG pH POC ABG pCO2 28.2 L POC ABG pO2 125 H Sodium Potassium Chloride Carbon Dioxide BUN Creatinine Glucose POC Glucose 133 H 160 H Calcium Phosphorus Magnesium C-Reactive Protein Lipase Urine Chloride Urine Total Protein 10/14/16 10/14/16 10/14/16 06:12 06:45 07:03 WBC RBC MCV RDW POC ABG pH POC ABG pCO2 POC ABG pO2 Sodium 149 H Potassium Chloride 115.4 H Carbon Dioxide 17 L BUN 45 H Creatinine 1.5 H Glucose 139 H POC Glucose 149 H Calcium 7.4 L Phosphorus 1.0 L D Magnesium C-Reactive Protein Lipase Urine Chloride Urine Total Protein 10/14/16 10/14/16 10/14/16 07:03 08:02 09:16 WBC RBC MCV RDW POC ABG pH POC ABG pCO2 POC ABG pO2 Sodium Potassium Chloride Carbon Dioxide BUN Creatinine Glucose POC Glucose 156 H 158 H Calcium Phosphorus Magnesium C-Reactive Protein Lipase 738 H Urine Chloride Urine Total Protein 10/14/16 10/14/16 10/14/16 10:26 11:03 11:57 WBC RBC MCV RDW POC ABG pH 7.198 L POC ABG pCO2 47.5 H POC ABG pO2 Sodium Potassium Chloride Carbon Dioxide BUN Creatinine Glucose POC Glucose 174 H 189 H Calcium Phosphorus Magnesium C-Reactive Protein Lipase Urine Chloride Urine Total Protein 10/14/16 10/14/16 10/14/16 12:02 12:02 13:11 WBC 13.4 H RBC 3.60 L MCV 98 H D RDW 13.1 L POC ABG pH POC ABG pCO2 POC ABG pO2 Sodium Potassium Chloride 110.7 H Carbon Dioxide 19 L BUN 38 H Creatinine 1.4 H Glucose 182 H POC Glucose 173 H Calcium 7.5 L Phosphorus Magnesium C-Reactive Protein Lipase Urine Chloride Urine Total Protein Chest x-ray: image reviewed
[2016-10-14] MEDS: D5NS 0.2% 1,000 ML IV SCH (17:28)
[2016-10-14] MEDS: fentaNYL DRIP Premix 2,000 MCG/100 ML BAG IV SCH (19:30)
[2016-10-14] MEDS: VERSED/NS 100MG/100ML 100 MG/100 ML BAG IV SCH (19:30)
[2016-10-14] MEDS: MONISTAT VG SCH (23:15)
[2016-10-15] MEDS ORDERED: CARDIZEM IV ONE (00:01)
[2016-10-15] MEDS: LOPRESSOR IV SCH ×4 (00:58→17:37)
[2016-10-15] MEDS: TYLENOL PR PRN ×2 (03:21→08:30)
[2016-10-15 05:21] LABS: Albumin/Globulin Ratio 1.2 %; Alkaline Phosphatase 80 units/L (35-129); Bilirubin,Total 0.5 mg/dL (0.1-1.2); Blood Urea Nitrogen 27 mg/dL (7-17); Calcium 7.5 mg/dL (8.4-10.2); Carbon Dioxide 17 mmol/L (22-30); Glucose 124 mg/dL (65-100); Phosphorous 2.7 mg/dL (2.5-4.5); Sodium 145 mmol/L (137-145); Total Protein 5.5 g/dL (6.3-8.2)
[2016-10-15 05:24] LABS: Alanine Aminotransferase 27 units/L (7-56); Anion Gap 24 mmol/L
[2016-10-15 05:25] LABS: Potassium 4.9 mmol/L (3.6-5.0)
[2016-10-15 07:06] LABS: ISTAT Base Excess -8; ISTAT HCO3 17.4; ISTAT PCO2 30.7 (35-45); ISTAT PH 7.361 (7.35-7.45); ISTAT PO2 108 (80-105); ISTAT SO2 98; ISTAT TCO2 18
[2016-10-15] MEDS: NovoLIN R 100 UNITS in NACL 0.9% 99 ML IV SCH (08:05)
[2016-10-15] MEDS: PEPCID IV SCH ×2 (10:05→22:25)
[2016-10-15] MEDS: LOVENOX SUB-Q SCH (10:12)
[2016-10-15] MEDS: LEVAQUIN 500MG/100ML 500 MG/100 ML BAG IV SCH (10:12)
[2016-10-15 10:35] LABS: Hematocrit 29.6 % (30.3-42.9); Hemoglobin 9.7 gm/dl (10.1-14.3); Mean Corpuscular HGB Conc 33 % (30-34); Mean Corpuscular Hemoglobin 32 pg (28-32); Mean Corpuscular Volume 98 fl (79-97); Platelet Count 129 K/mm3 (140-440); Red Blood Count 3.01 M/mm3 (3.65-5.03); Red Cell Distribution Width 13.2 % (13.2-15.2); White Blood Count 12.1 K/mm3 (4.5-11.0)
[2016-10-15 10:38] LABS: BUN/Creatinine Ratio 18.33
[2016-10-15 10:39] LABS: Chloride 109.6 mmol/L (98-107); Potassium 3.2 mmol/L (3.6-5.0)
[2016-10-15] MEDS ORDERED: MORPHINE ONE (10:58)
[2016-10-15] MEDS ORDERED: MORPHINE IV ONE (11:12)
[2016-10-15 11:23] LABS: Bilirubin,Urine NEG (Negative); Blood,Urine LG (Negative); Ketones,Urine NEG (Negative); Leukocyte Esterase,Urine NEG (Negative); Mucus,Urine FEW /HPF; Nitrite,Urine NEG (Negative); Urobilinogen,Urine < 2.0 mg/dL (<2.0)
[2016-10-15 12:06] LABS: ISTAT Base Excess -5; ISTAT HCO3 20.9; ISTAT PCO2 42.1 (35-45); ISTAT PH 7.305 (7.35-7.45); ISTAT PO2 92 (80-105); ISTAT SO2 96; ISTAT TCO2 22
--- NOTE | 2016-10-15 12:16 | Progress Note ---
Assessment and Plan (1) Acute on chronic renal failure Current Visit: Yes Status: Acute Plan to address problem: kdiney function cont to improve Kcl 40 meq IVx1 ordered Renally dose medications Strict I/O monitoring, stewart catheter present Will monitor renal function closely (2) Hypophosphatemia Current Visit: Yes Status: Acute Plan to address problem: recheck in AM (3) DKA (diabetic ketoacidoses) Current Visit: Yes Status: Acute Qualifiers: Diabetes mellitus type: D Diabetes mellitus complication detail: D Plan to address problem: On insulin drip (4) Hyperkalemia Current Visit: Yes Status: Acute Plan to address problem: Resolved (5) Respiratory failure Current Visit: Yes Status: Acute Qualifiers: Chronicity: C Respiratory failure complication: R Plan to address problem: Intubated (6) Acidosis Current Visit: Yes Status: Acute Plan to address problem: improving Subjective Date of service: 10/15/16 Principal diagnosis: Acute on Chronic Kidney Disease Interval history: patient is intubated and sedated, at bedside, all questions answered Objective - Vital Signs Vital signs: Vital Signs - 12hr 10/15/16 10/15/16 10/15/16 00:45 00:58 01:00 Temperature Pulse Rate 91 H 87 88 Respiratory 19 Rate Blood Pressure 124/59 124/59 131/65 Blood Pressure [Right] O2 Sat by Pulse 100 Oximetry 10/15/16 10/15/16 10/15/16 02:00 03:00 03:21 Temperature 102 F H Pulse Rate 92 H Respiratory 20 15 Rate Blood Pressure 137/64 134/62 Blood Pressure [Right] O2 Sat by Pulse 100 Oximetry 10/15/16 10/15/16 10/15/16 04:00 05:00 05:30 Temperature 100 F H Pulse Rate 91 H 101 H Respiratory 20 20 Rate Blood Pressure 141/61 151/68 Blood Pressure [Right] O2 Sat by Pulse 100 100 Oximetry 10/15/16 10/15/16 10/15/16 06:00 06:21 06:48 Temperature Pulse Rate 99 H 102 H 110 H Respiratory 20 Rate Blood Pressure 147/60 144/63 161/67 Blood Pressure [Right] O2 Sat by Pulse 100 100 Oximetry 10/15/16 10/15/16 10/15/16 07:00 08:00 08:30 Temperature 102.4 F H Pulse Rate 90 84 86 Respiratory 21 18 20 Rate Blood Pressure 126/64 119/57 Blood Pressure 117/69 [Right] O2 Sat by Pulse 100 100 98 Oximetry 10/15/16 10/15/16 10/15/16 09:00 09:42 10:00 Temperature Pulse Rate 78 74 78 Respiratory 20 16 Rate Blood Pressure 97/45 91/46 94/49 Blood Pressure [Right] O2 Sat by Pulse 94 97 100 Oximetry 10/15/16 10:13 Temperature 99.7 F H Pulse Rate 86 Respiratory 20 Rate Blood Pressure Blood Pressure [Right] O2 Sat by Pulse 98 Oximetry - General Appearance General appearance: sedated on ventilator, intubated EENT: ATNC, PERRL, mucous membranes dry Neck: no JVD, no carotid bruit Respiratory: Present: Clear to Ascultation Cardiology: regular, S1S2 Gastrointestinal: normoactive bowel sounds, no tenderness, no distended Integumentary: no rash, warm and dry Neurologic: other (patient is sedated) Musculoskeletal: other (no edema in BLE) Psychiatric: other (patient is sedated) - Lab 10/15/16 10:06 10/15/16 10:06 Most recent lab results Calcium 7.0 mg/dL (8.4-10.2) L 10/15/16 10:06 Phosphorus 2.7 mg/dL (2.5-4.5) D 10/15/16 04:40 Magnesium 3.0 mg/dL (1.7-2.3) H 10/13/16 06:38 Urine Creatinine < 4.2 mg/dL (0.1-20.0) 10/13/16 Unknown Urine Sodium 10 mEq/L 10/13/16 Unknown Urine Total Protein < 4 mg/dL (5-11.8) L 10/13/16 Unknown
--- NOTE | 2016-10-15 12:43 | XRay Report ---
CHEST 1 VIEW INDICATION: Follow up respiratory failure. COMPARISON: Yesterday. FINDINGS: Portable, frontal chest radiograph, 2:27 AM, 10/15/2016 reveals stable cardiomediastinal silhouette, supporting devices, appearance of the lungs and osseous structures, providing for the difference in technique. CONCLUSION: No significant interval change. Please note that this exam is now available to me for interpretation due to technical/PACS difficulties. Thank you for the opportunity to participate in this patient's care.
[2016-10-15] MEDS: KCL 10MEQ/100ML 10 MEQ/100 ML BAG IV SCH ×4 (13:47→18:36)
--- NOTE | 2016-10-15 14:17 | Progress Note ---
Assessment and Plan - Patient Problems (1) Acute respiratory failure with hypercapnia Current Visit: Yes Status: Acute Plan to address problem: Continue with mechanical ventilatory support. VAP bundle Critical bundle addressed Agitation management Adjust ventilator settings for better gas-exchange VTYE/Stress ulcer prophylaxis SAT/SBT Glycemic control (2) DKA (diabetic ketoacidoses) Current Visit: Yes Status: Acute Qualifiers: Diabetes mellitus type: D Diabetes mellitus complication detail: D Plan to address problem: DKA management per protocol (3) Altered mental status Current Visit: Yes Status: Acute Qualifiers: Altered mental status type: A Coma depth: C Coma timing: C (4) Acidosis Current Visit: Yes Status: Acute (5) Acute on chronic renal failure Current Visit: Yes Status: Acute Plan to address problem: Monitor renal function and electrolytes. Avoid nephrotoxic agents, adjust all medications for creatinine clearance Subjective Date of service: 10/15/16 Principal diagnosis: respiratory failure on mechanical ventilatory support, DKA Interval history: patient seen and examined. Vitals, labs, medications, chart reviewed Objective - Exam Narrative Exam: GENERAL: -[place] female lying on bed appeared to be in no discomfort. Patient is intubated HEENT: Normocephalic. Atraumatic. No conjunctival congestion or icterus. Patient has dry mucous membranes. NECK: Supple. Trachea midline. ETT in place CHEST/LUNGS: Clear to auscultated bilaterally, breathing nonlabored. No wheezes crackles or rhonchi. HEART/CARDIOVASCULAR: Regular in rate and rhythm. S1 and S2 positive. ABDOMEN: Abdomen is soft, nontender. Patient has normal bowel sounds. SKIN: There is no rash. Warm and dry. NEURO: sedated MUSCULOSKELETAL: No joint effusion or tenderness. EXTRIMITY: No edema, no cyanosis or clubbing. . Vital Signs - 12hr 10/15/16 10/15/16 10/15/16 03:00 03:21 04:00 Temperature 102 F H Pulse Rate 91 H Pulse Rate [ From Monitor] Respiratory 15 20 Rate Blood Pressure 134/62 141/61 Blood Pressure [Right] O2 Sat by Pulse 100 100 Oximetry 10/15/16 10/15/16 10/15/16 05:00 05:30 06:00 Temperature 100 F H Pulse Rate 101 H 99 H Pulse Rate [ From Monitor] Respiratory 20 20 Rate Blood Pressure 151/68 147/60 Blood Pressure [Right] O2 Sat by Pulse 100 100 Oximetry 10/15/16 10/15/16 10/15/16 06:21 06:48 07:00 Temperature Pulse Rate 102 H 110 H 90 Pulse Rate [ From Monitor] Respiratory 21 Rate Blood Pressure 144/63 161/67 126/64 Blood Pressure [Right] O2 Sat by Pulse 100 100 Oximetry 10/15/16 10/15/16 10/15/16 08:00 08:30 09:00 Temperature 102.4 F H Pulse Rate 84 86 78 Pulse Rate [ From Monitor] Respiratory 18 20 20 Rate Blood Pressure 119/57 97/45 Blood Pressure 117/69 [Right] O2 Sat by Pulse 100 98 94 Oximetry 10/15/16 10/15/16 10/15/16 09:42 10:00 10:13 Temperature 99.7 F H Pulse Rate 74 78 86 Pulse Rate [ From Monitor] Respiratory 16 20 Rate Blood Pressure 91/46 94/49 Blood Pressure [Right] O2 Sat by Pulse 97 100 98 Oximetry 10/15/16 10/15/16 10/15/16 11:00 12:00 12:49 Temperature Pulse Rate 107 H 118 H 119 H Pulse Rate [ From Monitor] Respiratory 20 19 Rate Blood Pressure 109/60 155/70 186/75 Blood Pressure [Right] O2 Sat by Pulse 100 99 Oximetry 10/15/16 10/15/16 13:00 13:41 Temperature Pulse Rate 124 H Pulse Rate [ 122 H From Monitor] Respiratory 20 Rate Blood Pressure 149/71 Blood Pressure [Right] O2 Sat by Pulse 100 Oximetry Constitutional: no acute distress, other (sedated) Eyes: non-icteric ENT: oropharynx moist Neck: supple, no lymphadenopathy Effort: mildly labored Ascultation: Bilateral: diminished breath sounds, rales Cardiovascular: regular rate and rhythm Gastrointestinal: normoactive bowel sounds, soft, non-tender, non-distended Integumentary: normal Extremities: no cyanosis, no edema, pulses normal, no ischemia or petechiae Neurologic: unable to assess Psychiatric: other (sedated) CBC and BMP: 10/16/16 05:58 10/16/16 04:14 ABG, PT/INR, D-dimer: ABG POC ABG pH 7.305 (7.35-7.45) L 10/15/16 11:57 POC ABG pCO2 42.1 (35-45) 10/15/16 11:57 POC ABG pO2 92 (80-105) 10/15/16 11:57 POC ABG HCO3 20.9 10/15/16 11:57 POC ABG Total CO2 22 10/15/16 11:57 POC ABG O2 Sat 96 10/15/16 11:57 Abnormal lab findings: Abnormal Labs 10/13/16 10/13/16 10/13/16 06:38 06:38 07:23 WBC RBC Hgb Hct MCV RDW Plt Count POC ABG pH POC ABG pCO2 POC ABG pO2 Sodium Potassium 6.2 H* Chloride Carbon Dioxide 8 L* BUN 85 H Creatinine 2.8 H Glucose 602 H* POC Glucose 495 H Calcium 7.9 L Phosphorus 6.9 H D Magnesium 3.0 H AST C-Reactive Protein Total Protein Albumin Lipase Urine WBC (Auto) Urine Chloride Urine Total Protein 10/13/16 10/13/16 10/13/16 08:49 08:55 10:12 WBC RBC Hgb Hct MCV RDW Plt Count POC ABG pH POC ABG pCO2 POC ABG pO2 Sodium Potassium 5.6 H Chloride Carbon Dioxide 11 L BUN 77 H Creatinine 2.7 H Glucose 457 H POC Glucose > 500 H 424 H Calcium 8.0 L Phosphorus Magnesium AST C-Reactive Protein Total Protein Albumin Lipase Urine WBC (Auto) Urine Chloride Urine Total Protein 10/13/16 10/13/16 10/13/16 10:44 11:22 12:20 WBC RBC Hgb Hct MCV RDW Plt Count POC ABG pH POC ABG pCO2 POC ABG pO2 Sodium Potassium 5.4 H Chloride Carbon Dioxide 14 L BUN 72 H Creatinine 2.6 H Glucose 383 H POC Glucose 391 H 313 H Calcium 8.2 L Phosphorus Magnesium AST C-Reactive Protein Total Protein Albumin Lipase Urine WBC (Auto) Urine Chloride Urine Total Protein 10/13/16 10/13/16 10/13/16 13:32 14:44 15:57 WBC RBC Hgb Hct MCV RDW Plt Count POC ABG pH POC ABG pCO2 POC ABG pO2 Sodium Potassium Chloride Carbon Dioxide BUN Creatinine Glucose POC Glucose 296 H 210 H 190 H Calcium Phosphorus Magnesium AST C-Reactive Protein Total Protein Albumin Lipase Urine WBC (Auto) Urine Chloride Urine Total Protein 10/13/16 10/13/16 10/13/16 16:14 16:14 17:17 WBC RBC Hgb Hct MCV RDW Plt Count POC ABG pH POC ABG pCO2 POC ABG pO2 Sodium Potassium Chloride Carbon Dioxide 17 L BUN 58 H Creatinine 1.8 H Glucose 172 H POC Glucose 193 H Calcium 7.7 L Phosphorus Magnesium AST C-Reactive Protein 10.50 H Total Protein Albumin Lipase Urine WBC (Auto) Urine Chloride Urine Total Protein 10/13/16 10/13/16 10/13/16 17:55 18:32 19:41 WBC RBC Hgb Hct MCV RDW Plt Count POC ABG pH POC ABG pCO2 30.6 L POC ABG pO2 218 H Sodium Potassium Chloride Carbon Dioxide BUN Creatinine Glucose POC Glucose 192 H 177 H Calcium Phosphorus Magnesium AST C-Reactive Protein Total Protein Albumin Lipase Urine WBC (Auto) Urine Chloride Urine Total Protein 10/13/16 10/13/16 10/13/16 20:54 22:07 23:13 WBC RBC Hgb Hct MCV RDW Plt Count POC ABG pH POC ABG pCO2 POC ABG pO2 Sodium Potassium Chloride Carbon Dioxide BUN Creatinine Glucose POC Glucose 178 H 160 H 168 H Calcium Phosphorus Magnesium AST C-Reactive Protein Total Protein Albumin Lipase Urine WBC (Auto) Urine Chloride Urine Total Protein 10/13/16 10/13/16 10/14/16 23:25 Unknown 00:21 WBC RBC Hgb Hct MCV RDW Plt Count POC ABG pH POC ABG pCO2 POC ABG pO2 Sodium 148 H Potassium Chloride 114.6 H Carbon Dioxide 17 L BUN 56 H Creatinine 1.6 H Glucose 151 H POC Glucose 171 H Calcium 7.8 L Phosphorus Magnesium AST C-Reactive Protein Total Protein Albumin Lipase Urine WBC (Auto) Urine Chloride 10.0 L Urine Total Protein < 4 L 10/14/16 10/14/16 10/14/16 01:22 02:29 03:30 WBC RBC Hgb Hct MCV RDW Plt Count POC ABG pH POC ABG pCO2 POC ABG pO2 Sodium Potassium Chloride Carbon Dioxide BUN Creatinine Glucose POC Glucose 144 H 136 H 143 H Calcium Phosphorus Magnesium AST C-Reactive Protein Total Protein Albumin Lipase Urine WBC (Auto) Urine Chloride Urine Total Protein 10/14/16 10/14/16 10/14/16 04:28 05:16 05:44 WBC RBC Hgb Hct MCV RDW Plt Count POC ABG pH POC ABG pCO2 28.2 L POC ABG pO2 125 H Sodium Potassium Chloride Carbon Dioxide BUN Creatinine Glucose POC Glucose 133 H 160 H Calcium Phosphorus Magnesium AST C-Reactive Protein Total Protein Albumin Lipase Urine WBC (Auto) Urine Chloride Urine Total Protein 10/14/16 10/14/16 10/14/16 06:12 06:45 07:03 WBC RBC Hgb Hct MCV RDW Plt Count POC ABG pH POC ABG pCO2 POC ABG pO2 Sodium 149 H Potassium Chloride 115.4 H Carbon Dioxide 17 L BUN 45 H Creatinine 1.5 H Glucose 139 H POC Glucose 149 H Calcium 7.4 L Phosphorus 1.0 L D Magnesium AST C-Reactive Protein Total Protein Albumin Lipase Urine WBC (Auto) Urine Chloride Urine Total Protein 10/14/16 10/14/16 10/14/16 07:03 08:02 09:16 WBC RBC Hgb Hct MCV RDW Plt Count POC ABG pH POC ABG pCO2 POC ABG pO2 Sodium Potassium Chloride Carbon Dioxide BUN Creatinine Glucose POC Glucose 156 H 158 H Calcium Phosphorus Magnesium AST C-Reactive Protein Total Protein Albumin Lipase 738 H Urine WBC (Auto) Urine Chloride Urine Total Protein 10/14/16 10/14/16 10/14/16 10:26 11:03 11:57 WBC RBC Hgb Hct MCV RDW Plt Count POC ABG pH 7.198 L POC ABG pCO2 47.5 H POC ABG pO2 Sodium Potassium Chloride Carbon Dioxide BUN Creatinine Glucose POC Glucose 174 H 189 H Calcium Phosphorus Magnesium AST C-Reactive Protein Total Protein Albumin Lipase Urine WBC (Auto) Urine Chloride Urine Total Protein 10/14/16 10/14/16 10/14/16 12:02 12:02 13:11 WBC 13.4 H RBC 3.60 L Hgb Hct MCV 98 H D RDW 13.1 L Plt Count POC ABG pH POC ABG pCO2 POC ABG pO2 Sodium Potassium Chloride 110.7 H Carbon Dioxide 19 L BUN 38 H Creatinine 1.4 H Glucose 182 H POC Glucose 173 H Calcium 7.5 L Phosphorus Magnesium AST C-Reactive Protein Total Protein Albumin Lipase Urine WBC (Auto) Urine Chloride Urine Total Protein 10/14/16 10/14/16 10/14/16 14:24 15:31 16:36 WBC RBC Hgb Hct MCV RDW Plt Count POC ABG pH POC ABG pCO2 POC ABG pO2 Sodium Potassium Chloride Carbon Dioxide BUN Creatinine Glucose POC Glucose 123 H 124 H 156 H Calcium Phosphorus Magnesium AST C-Reactive Protein Total Protein Albumin Lipase Urine WBC (Auto) Urine Chloride Urine Total Protein 10/14/16 10/14/16 10/14/16 17:43 19:00 20:08 WBC RBC Hgb Hct MCV RDW Plt Count POC ABG pH POC ABG pCO2 POC ABG pO2 Sodium Potassium Chloride Carbon Dioxide BUN Creatinine Glucose POC Glucose 154 H 123 H 138 H Calcium Phosphorus Magnesium AST C-Reactive Protein Total Protein Albumin Lipase Urine WBC (Auto) Urine Chloride Urine Total Protein 10/14/16 10/14/16 10/14/16 21:17 22:25 23:37 WBC RBC Hgb Hct MCV RDW Plt Count POC ABG pH POC ABG pCO2 POC ABG pO2 Sodium Potassium Chloride Carbon Dioxide BUN Creatinine Glucose POC Glucose 148 H 132 H 137 H Calcium Phosphorus Magnesium AST C-Reactive Protein Total Protein Albumin Lipase Urine WBC (Auto) Urine Chloride Urine Total Protein 10/15/16 10/15/16 10/15/16 00:49 01:53 03:06 WBC RBC Hgb Hct MCV RDW Plt Count POC ABG pH POC ABG pCO2 POC ABG pO2 Sodium Potassium Chloride Carbon Dioxide BUN Creatinine Glucose POC Glucose 132 H 134 H 134 H Calcium Phosphorus Magnesium AST C-Reactive Protein Total Protein Albumin Lipase Urine WBC (Auto) Urine Chloride Urine Total Protein 10/15/16 10/15/16 10/15/16 04:40 04:46 06:21 WBC RBC Hgb Hct MCV RDW Plt Count POC ABG pH POC ABG pCO2 30.7 L POC ABG pO2 108 H Sodium Potassium Chloride 109.0 H Carbon Dioxide 17 L BUN 27 H Creatinine Glucose 124 H POC Glucose 160 H Calcium 7.5 L Phosphorus Magnesium AST 79 H C-Reactive Protein Total Protein 5.5 L Albumin 3.0 L Lipase Urine WBC (Auto) Urine Chloride Urine Total Protein 10/15/16 10/15/16 10/15/16 07:12 10:06 10:06 WBC 12.1 H RBC 3.01 L Hgb 9.7 L Hct 29.6 L MCV 98 H RDW Plt Count 129 L POC ABG pH POC ABG pCO2 POC ABG pO2 Sodium Potassium 3.2 L D Chloride 109.6 H Carbon Dioxide 18 L BUN 22 H Creatinine Glucose 127 H POC Glucose 179 H Calcium 7.0 L Phosphorus Magnesium AST C-Reactive Protein Total Protein Albumin Lipase Urine WBC (Auto) Urine Chloride Urine Total Protein 10/15/16 10/15/16 10/15/16 11:05 11:57 12:04 WBC RBC Hgb Hct MCV RDW Plt Count POC ABG pH 7.305 L POC ABG pCO2 POC ABG pO2 Sodium Potassium Chloride Carbon Dioxide BUN Creatinine Glucose POC Glucose 123 H Calcium Phosphorus Magnesium AST C-Reactive Protein Total Protein Albumin Lipase Urine WBC (Auto) 7.0 H Urine Chloride Urine Total Protein Critical care time in (mins) excluding proc time.: 34 Critical care attestation.: If time is entered above; I have spent that time in minutes in the direct care of this critically ill patient, excluding procedure time.
[2016-10-15] MEDS: D5NS 0.2% 1,000 ML IV SCH (16:53)
[2016-10-15] MEDS: VERSED/NS 100MG/100ML 100 MG/100 ML BAG IV SCH (17:02)
--- NOTE | 2016-10-15 18:37 | Progress Note ---
Assessment and Plan Assessment and plan: Acute Respiratory failure * Intubated and sedated * repeat ABG today * wean off vent as tolerated Acute on chronic renal failure * Renal function improving, current serum creatinine 1.2 today, admission serum creatinine 2.6 * Renal ultrasound result- unremarkable * Renally dose medications * Strict I/O monitoring DKA (diabetic ketoacidoses) * On insulin drip * On D5 1/2NS with KCL @ 100 ml/hr Hypophosphatemia, s/p K-phos 30 mmol IV x1, resolved Hyperkalemia, Resolved, 8.4 on admission, now hypokalemic -replace Metabolic encephalopathy, * cont to monitor, CT head no acute change * likley due to severe DKA Acute pancreatitis * Trend lipase * Continue aggressive iv fluid hydration, and keep nothing by mouth Vaginal candidiasis * Place on Diflucan and local Miconazole cream Hypernatremia, resolved, cont IV fluid to D5 half normal saline with KCL Thrombocytopenia, stop heparin, cont to monitor Aspiration pneumonitis, cont levaquin History Interval history: Patient seen and examined Still in the ER to get ICU bed Patient is intubated, updated spouse at bedside Hospitalist Physical - Physical exam Narrative exam: GENERAL: -[place] female lying on bed appeared to be in no discomfort. Patient is intubated HEENT: Normocephalic. Atraumatic. No conjunctival congestion or icterus. Patient has dry mucous membranes. NECK: Supple. Trachea midline. ETT in place CHEST/LUNGS: Clear to auscultated bilaterally, breathing nonlabored. No wheezes crackles or rhonchi. HEART/CARDIOVASCULAR: Regular in rate and rhythm. S1 and S2 positive. ABDOMEN: Abdomen is soft, nontender. Patient has normal bowel sounds. SKIN: There is no rash. Warm and dry. NEURO: sedated MUSCULOSKELETAL: No joint effusion or tenderness. EXTRIMITY: No edema, no cyanosis or clubbing. . - Constitutional Vitals: Temp Pulse Resp BP Pulse Ox 99.7 F H 101 H 21 136/61 100 10/15/16 10:13 10/15/16 17:55 10/15/16 16:20 10/15/16 17:55 10/15/16 17:55 Results - Labs CBC & Chem 7: 10/15/16 10:06 10/15/16 10:06 Labs: Laboratory Last Values WBC 12.1 K/mm3 (4.5-11.0) H 10/15/16 10:06 RBC 3.01 M/mm3 (3.65-5.03) L 10/15/16 10:06 Hgb 9.7 gm/dl (10.1-14.3) L 10/15/16 10:06 Hct 29.6 % (30.3-42.9) L 10/15/16 10:06 MCV 98 fl (79-97) H 10/15/16 10:06 MCH 32 pg (28-32) 10/15/16 10:06 MCHC 33 % (30-34) 10/15/16 10:06 RDW 13.2 % (13.2-15.2) 10/15/16 10:06 Plt Count 129 K/mm3 (140-440) L 10/15/16 10:06 Add Manual Diff Complete 10/13/16 04:22 Total Counted 100 10/13/16 04:22 Seg Neuts % (Manual) 71.0 % (40.0-70.0) H 10/13/16 04:22 Band Neutrophils % 9.0 % 10/13/16 04:22 Lymphocytes % (Manual) 12.0 % (13.4-35.0) L 10/13/16 04:22 Reactive Lymphs % (Man) 0 % 10/13/16 04:22 Monocytes % (Manual) 8.0 % (0.0-7.3) H 10/13/16 04:22 Eosinophils % (Manual) 0 % (0.0-4.3) 10/13/16 04:22 Basophils % (Manual) 0 % (0.0-1.8) 10/13/16 04:22 Metamyelocytes % 0 % 10/13/16 04:22 Myelocytes % 0 % 10/13/16 04:22 Promyelocytes % 0 % 10/13/16 04:22 Blast Cells % 0 % 10/13/16 04:22 Nucleated RBC % Not Reportable 10/13/16 04:22 Seg Neutrophils # Man 12.4 K/mm3 (1.8-7.7) H 10/13/16 04:22 Band Neutrophils # 1.6 K/mm3 10/13/16 04:22 Lymphocytes # (Manual) 2.1 K/mm3 (1.2-5.4) 10/13/16 04:22 Abs React Lymphs (Man) 0.0 K/mm3 10/13/16 04:22 Monocytes # (Manual) 1.4 K/mm3 (0.0-0.8) H 10/13/16 04:22 Eosinophils # (Manual) 0.0 K/mm3 (0.0-0.4) 10/13/16 04:22 Basophils # (Manual) 0.0 K/mm3 (0.0-0.1) 10/13/16 04:22 Metamyelocytes # 0.0 K/mm3 10/13/16 04:22 Myelocytes # 0.0 K/mm3 10/13/16 04:22 Promyelocytes # 0.0 K/mm3 10/13/16 04:22 Blast Cells # 0.0 K/mm3 10/13/16 04:22 WBC Morphology Not Reportable 10/13/16 04:22 Hypersegmented Neuts Not Reportable 10/13/16 04:22 Hyposegmented Neuts Not Reportable 10/13/16 04:22 Hypogranular Neuts Not Reportable 10/13/16 04:22 Smudge Cells Not Reportable 10/13/16 04:22 Toxic Granulation Not Reportable 10/13/16 04:22 Toxic Vacuolation Not Reportable 10/13/16 04:22 Dohle Bodies Not Reportable 10/13/16 04:22 Pelger-Huet Anomaly Not Reportable 10/13/16 04:22 Alka Rods Not Reportable 10/13/16 04:22 Platelet Estimate Consistent w auto 10/13/16 04:22 Clumped Platelets Not Reportable 10/13/16 04:22 Plt Clumps, EDTA Not Reportable 10/13/16 04:22 Large Platelets Not Reportable 10/13/16 04:22 Giant Platelets Not Reportable 10/13/16 04:22 Platelet Satelliting Not Reportable 10/13/16 04:22 Plt Morphology Comment Not Reportable 10/13/16 04:22 RBC Morphology Not Reportable 10/13/16 04:22 Dimorphic RBCs Not Reportable 10/13/16 04:22 Polychromasia Rare 10/13/16 04:22 Hypochromasia Not Reportable 10/13/16 04:22 Poikilocytosis Not Reportable 10/13/16 04:22 Anisocytosis 1+ 10/13/16 04:22 Microcytosis Not Reportable 10/13/16 04:22 Macrocytosis Not Reportable 10/13/16 04:22 Spherocytes Not Reportable 10/13/16 04:22 Pappenheimer Bodies Not Reportable 10/13/16 04:22 Sickle Cells Not Reportable 10/13/16 04:22 Target Cells Not Reportable 10/13/16 04:22 Tear Drop Cells Not Reportable 10/13/16 04:22 Ovalocytes Not Reportable 10/13/16 04:22 Helmet Cells Not Reportable 10/13/16 04:22 Higgins-Enfield Bodies Not Reportable 10/13/16 04:22 Hubbard Rings Not Reportable 10/13/16 04:22 Irwin Cells Not Reportable 10/13/16 04:22 Bite Cells Not Reportable 10/13/16 04:22 Crenated Cell Not Reportable 10/13/16 04:22 Elliptocytes Not Reportable 10/13/16 04:22 Acanthocytes (Spur) Not Reportable 10/13/16 04:22 Rouleaux Not Reportable 10/13/16 04:22 Hemoglobin C Crystals Not Reportable 10/13/16 04:22 Schistocytes Not Reportable 10/13/16 04:22 Malaria parasites Not Reportable 10/13/16 04:22 David Bodies Not Reportable 10/13/16 04:22 Hem Pathologist Commnt No 10/13/16 04:22 POC ABG pH 7.305 (7.35-7.45) L 10/15/16 11:57 POC ABG pCO2 42.1 (35-45) 10/15/16 11:57 POC ABG pO2 92 (80-105) 10/15/16 11:57 POC ABG HCO3 20.9 10/15/16 11:57 POC ABG Total CO2 22 10/15/16 11:57 POC ABG O2 Sat 96 10/15/16 11:57 POC ABG Base Excess -5 10/15/16 11:57 VBG pH 7.020 (7.320-7.420) L* 10/13/16 04:22 FiO2 30 % 10/15/16 11:57 Sodium 142 mmol/L (137-145) 10/15/16 10:06 Potassium 3.2 mmol/L (3.6-5.0) L D 10/15/16 10:06 Chloride 109.6 mmol/L (98-107) H 10/15/16 10:06 Carbon Dioxide 18 mmol/L (22-30) L 10/15/16 10:06 Anion Gap 18 mmol/L 10/15/16 10:06 BUN 22 mg/dL (7-17) H 10/15/16 10:06 Creatinine 1.2 mg/dL (0.7-1.2) 10/15/16 10:06 Estimated GFR 55 ml/min 10/15/16 10:06 BUN/Creatinine Ratio 18.33 % 10/15/16 10:06 Glucose 127 mg/dL (65-100) H 10/15/16 10:06 POC Glucose 123 (70-105) H 10/15/16 12:04 Osmolality 332 Mosm/kg 10/14/16 07:03 Lactic Acid 1.8 mmol/L (0.7-2.0) 10/14/16 07:03 Calcium 7.0 mg/dL (8.4-10.2) L 10/15/16 10:06 Phosphorus 2.7 mg/dL (2.5-4.5) D 10/15/16 04:40 Magnesium 3.0 mg/dL (1.7-2.3) H 10/13/16 06:38 Total Bilirubin 0.5 mg/dL (0.1-1.2) 10/15/16 04:40 AST 79 units/L (5-40) H 10/15/16 04:40 ALT 27 units/L (7-56) 10/15/16 04:40 Alkaline Phosphatase 80 units/L (35-129) 10/15/16 04:40 Ammonia 35.0 umol/L (25-60) 10/13/16 05:40 Total Creatine Kinase 107 units/L (30-135) 10/13/16 04:22 CK-MB (CK-2) 3.1 ng/mL (0.0-4.0) 10/13/16 04:22 CK-MB (CK-2) Rel Index 2.8 (0-4) 10/13/16 04:22 Troponin T < 0.010 ng/mL (0.00-0.029) 10/14/16 18:55 C-Reactive Protein 10.50 mg/dL (0.00-1.30) H 10/13/16 16:14 Total Protein 5.5 g/dL (6.3-8.2) L 10/15/16 04:40 Albumin 3.0 g/dL (3.9-5) L 10/15/16 04:40 Albumin/Globulin Ratio 1.2 % 10/15/16 04:40 Lipase 738 units/L (13-60) H 10/14/16 07:03 Urine Color Yellow (Yellow) 10/15/16 11:05 Urine Turbidity Cloudy (Clear) 10/15/16 11:05 Urine pH 5.0 (5.0-7.0) 10/15/16 11:05 Ur Specific [place] 1.009 (1.003-1.030) 10/15/16 11:05 Urine Protein 30 mg/dl mg/dL (Negative) 10/15/16 11:05 Urine Glucose (UA) 150 mg/dL (Negative) 10/15/16 11:05 Urine Ketones Neg mg/dL (Negative) 10/15/16 11:05 Urine Blood Lg (Negative) 10/15/16 11:05 Urine Nitrite Neg (Negative) 10/15/16 11:05 Urine Bilirubin Neg (Negative) 10/15/16 11:05 Urine Urobilinogen < 2.0 mg/dL (<2.0) 10/15/16 11:05 Ur Leukocyte Esterase Neg (Negative) 10/15/16 11:05 Urine WBC (Auto) 7.0 /HPF (0.0-6.0) H 10/15/16 11:05 Urine RBC (Auto) 7.0 /HPF (0.0-6.0) 10/15/16 11:05 U Epithel Cells (Auto) 1.0 /HPF (0-13.0) 10/15/16 11:05 Urine Mucus Few /HPF 10/15/16 11:05 Urine Yeast (Budding) 2+ /HPF 10/15/16 11:05 Urine Osmolality 487 Mosm/kg 10/13/16 Unknown Urine Creatinine < 4.2 mg/dL (0.1-20.0) 10/13/16 Unknown Protein/Creatinin Ratio 0.00 10/13/16 Unknown Urine Sodium 10 mEq/L 10/13/16 Unknown Urine Potassium 1.00 mEq/L 10/13/16 Unknown Urine Chloride 10.0 mEq/L (110-250) L 10/13/16 Unknown Urine Total Protein < 4 mg/dL (5-11.8) L 10/13/16 Unknown Ketones 107.3 mg/dL (0.2-2.8) H 10/13/16 04:22
[2016-10-15] MEDS: MONISTAT VG SCH (23:02)
[2016-10-16] MEDS: LOPRESSOR IV SCH ×5 (03:51→23:51)
[2016-10-16 05:02] LABS: Anion Gap 21 mmol/L; BUN/Creatinine Ratio 14.54; Blood Urea Nitrogen 16 mg/dL (7-17); Calcium 7.3 mg/dL (8.4-10.2); Carbon Dioxide 19 mmol/L (22-30); Chloride 110.9 mmol/L (98-107); Glucose 139 mg/dL (65-100); Phosphorous 2.3 mg/dL (2.5-4.5); Sodium 147 mmol/L (137-145)
[2016-10-16 05:31] LABS: ISTAT Base Excess -3; ISTAT HCO3 21.1; ISTAT PCO2 30.7 (35-45); ISTAT PH 7.444 (7.35-7.45); ISTAT PO2 128 (80-105); ISTAT SO2 99; ISTAT TCO2 22
[2016-10-16 06:22] LABS: Basophils % (Auto) 0.1 % (0.0-1.8); Eosinophils % (Auto) 0.5 % (0.0-4.3); Hematocrit 32.8 % (30.3-42.9); Hemoglobin 10.7 gm/dl (10.1-14.3); Mean Corpuscular HGB Conc 33 % (30-34); Mean Corpuscular Hemoglobin 32 pg (28-32); Mean Corpuscular Volume 98 fl (79-97); Platelet Count 154 K/mm3 (140-440); Red Blood Count 3.36 M/mm3 (3.65-5.03); Red Cell Distribution Width 13.1 % (13.2-15.2); White Blood Count 16.5 K/mm3 (4.5-11.0)
[2016-10-16] MEDS: TYLENOL PR PRN ×3 (08:20→21:39)
--- NOTE | 2016-10-16 09:23 | Progress Note ---
Assessment and Plan (1) Acute on chronic renal failure Current Visit: Yes Status: Acute Plan to address problem: Cr normalized Renally dose medications Strict I/O monitoring, stewart catheter present (2) Hypophosphatemia Current Visit: Yes Status: Acute Plan to address problem: replete as needed (3) DKA (diabetic ketoacidoses) Current Visit: Yes Status: Acute Qualifiers: Diabetes mellitus type: D Diabetes mellitus complication detail: D Plan to address problem: On insulin drip (4) Hyperkalemia Current Visit: Yes Status: Acute Plan to address problem: Resolved (5) Respiratory failure Current Visit: Yes Status: Acute Qualifiers: Chronicity: C Respiratory failure complication: R Plan to address problem: Intubated (6) Acidosis Current Visit: Yes Status: Acute Plan to address problem: improving Subjective Date of service: 10/16/16 Principal diagnosis: respiratory failure on mechanical ventilatory support, DKA Interval history: patient is intubated, awake but does not follow commands, at bedside Objective - Vital Signs Vital signs: Vital Signs - 12hr 10/15/16 10/15/16 10/15/16 21:30 21:40 21:50 Temperature Pulse Rate 106 H 105 H 105 H Respiratory 19 21 20 Rate Blood Pressure 149/69 149/69 149/69 O2 Sat by Pulse 100 100 100 Oximetry 10/15/16 10/15/16 10/15/16 22:00 22:10 22:20 Temperature Pulse Rate 105 H 102 H 103 H Respiratory 20 20 20 Rate Blood Pressure 139/69 139/69 139/69 O2 Sat by Pulse 100 100 100 Oximetry 10/15/16 10/15/16 10/15/16 22:30 22:40 22:50 Temperature Pulse Rate 107 H 104 H 110 H Respiratory 21 20 21 Rate Blood Pressure 139/69 139/69 139/69 O2 Sat by Pulse 100 100 100 Oximetry 10/15/16 10/15/16 10/15/16 22:58 23:00 23:01 Temperature Pulse Rate 109 H 111 H 108 H Respiratory 20 20 Rate Blood Pressure 162/69 162/69 O2 Sat by Pulse 100 100 Oximetry 10/15/16 10/15/16 10/15/16 23:10 23:14 23:20 Temperature Pulse Rate 108 H 105 H 105 H Respiratory 21 20 20 Rate Blood Pressure 139/69 139/69 139/69 O2 Sat by Pulse 100 100 100 Oximetry 10/15/16 10/15/16 10/15/16 23:30 23:40 23:50 Temperature Pulse Rate 100 H 98 H 100 H Respiratory 19 20 20 Rate Blood Pressure 139/69 162/69 162/69 O2 Sat by Pulse 100 100 100 Oximetry 10/16/16 10/16/16 10/16/16 00:00 00:10 00:15 Temperature Pulse Rate 100 H 100 H 93 H Respiratory 20 20 Rate Blood Pressure 143/68 143/68 O2 Sat by Pulse 100 100 Oximetry 10/16/16 10/16/16 10/16/16 00:20 00:30 00:40 Temperature Pulse Rate 94 H 93 H 97 H Respiratory 20 20 20 Rate Blood Pressure 143/68 143/68 143/68 O2 Sat by Pulse 100 100 100 Oximetry 10/16/16 10/16/16 10/16/16 00:50 01:00 01:10 Temperature Pulse Rate 105 H 109 H 111 H Respiratory 20 21 20 Rate Blood Pressure 143/68 159/75 159/75 O2 Sat by Pulse 100 100 100 Oximetry 10/16/16 10/16/16 10/16/16 01:20 01:30 01:40 Temperature Pulse Rate 107 H 106 H 101 H Respiratory 20 20 20 Rate Blood Pressure 159/75 159/75 159/75 O2 Sat by Pulse 100 100 100 Oximetry 10/16/16 10/16/16 10/16/16 01:50 02:00 02:10 Temperature Pulse Rate 103 H 107 H 103 H Respiratory 20 17 20 Rate Blood Pressure 159/75 158/74 158/74 O2 Sat by Pulse 100 100 100 Oximetry 10/16/16 10/16/16 10/16/16 02:18 02:20 02:30 Temperature Pulse Rate 104 H 105 H 110 H Respiratory 18 22 Rate Blood Pressure 158/74 158/74 158/74 O2 Sat by Pulse 100 100 100 Oximetry 10/16/16 10/16/16 10/16/16 02:40 02:50 03:00 Temperature Pulse Rate 104 H 104 H 101 H Respiratory 20 20 20 Rate Blood Pressure 158/74 158/74 142/67 O2 Sat by Pulse 100 Oximetry 10/16/16 10/16/16 10/16/16 03:10 03:20 03:32 Temperature Pulse Rate 106 H 112 H 109 H Respiratory 20 15 20 Rate Blood Pressure 142/67 142/67 142/67 O2 Sat by Pulse Oximetry 10/16/16 10/16/16 10/16/16 03:35 03:40 03:50 Temperature Pulse Rate 109 H 105 H 89 Respiratory 20 20 20 Rate Blood Pressure 142/67 142/67 O2 Sat by Pulse 100 100 Oximetry 10/16/16 10/16/16 10/16/16 03:51 04:00 04:10 Temperature Pulse Rate 109 H 87 94 H Respiratory 20 20 Rate Blood Pressure 142/67 131/62 131/62 O2 Sat by Pulse 100 100 Oximetry 10/16/16 10/16/16 10/16/16 04:20 04:30 04:40 Temperature Pulse Rate 90 96 H 99 H Respiratory 20 23 20 Rate Blood Pressure 131/62 131/62 131/62 O2 Sat by Pulse 100 89 Oximetry 10/16/16 10/16/16 10/16/16 04:50 05:00 05:01 Temperature Pulse Rate 94 H 100 H 95 H Respiratory 20 21 Rate Blood Pressure 131/62 131/62 135/114 O2 Sat by Pulse 100 100 100 Oximetry 10/16/16 10/16/16 10/16/16 05:10 05:20 05:30 Temperature Pulse Rate 96 H 116 H 118 H Respiratory 20 19 24 Rate Blood Pressure 135/114 135/114 135/114 O2 Sat by Pulse 100 99 100 Oximetry 10/16/16 10/16/16 10/16/16 05:40 05:45 05:50 Temperature Pulse Rate 113 H 111 H 96 H Respiratory 15 20 17 Rate Blood Pressure 135/114 135/114 135/114 O2 Sat by Pulse 100 100 100 Oximetry 10/16/16 10/16/16 10/16/16 06:00 06:10 06:20 Temperature Pulse Rate 96 H 90 88 Respiratory 17 21 20 Rate Blood Pressure 146/62 146/62 146/62 O2 Sat by Pulse 100 100 100 Oximetry 10/16/16 10/16/16 10/16/16 06:30 06:32 08:00 Temperature 101.8 F H Pulse Rate 97 H 88 Respiratory 20 20 Rate Blood Pressure 146/62 O2 Sat by Pulse 100 100 Oximetry 10/16/16 08:20 Temperature Pulse Rate Respiratory 21 Rate Blood Pressure O2 Sat by Pulse Oximetry - General Appearance General appearance: intubated EENT: ATNC, PERRL Neck: no JVD Respiratory: Present: Clear to Ascultation Cardiology: regular, S1S2 Gastrointestinal: normoactive bowel sounds Integumentary: no rash, warm and dry Neurologic: other (intubated) Musculoskeletal: other (trace pitting edema in upper ext) Psychiatric: other (intubated) - Lab 10/16/16 05:58 10/16/16 04:14 Most recent lab results Calcium 7.3 mg/dL (8.4-10.2) L 10/16/16 04:14 Phosphorus 2.3 mg/dL (2.5-4.5) L 10/16/16 04:14 Magnesium 3.0 mg/dL (1.7-2.3) H 10/13/16 06:38 Urine Creatinine < 4.2 mg/dL (0.1-20.0) 10/13/16 Unknown Urine Sodium 10 mEq/L 10/13/16 Unknown Urine Total Protein < 4 mg/dL (5-11.8) L 10/13/16 Unknown
[2016-10-16] MEDS: D5W/0.45% NACL/KCL 30 MEQ 30 MEQ/1,000 ML BAG IV SCH ×2 (09:30→18:43)
[2016-10-16 09:41] LABS: ISTAT Base Excess -4; ISTAT HCO3 20.6; ISTAT PCO2 32.8 (35-45); ISTAT PH 7.407 (7.35-7.45); ISTAT PO2 137 (80-105); ISTAT SO2 99; ISTAT TCO2 22
[2016-10-16] MEDS: DIFLUCAN PO SCH ×2 (09:56→21:21)
[2016-10-16] MEDS: PEPCID IV SCH ×2 (09:56→21:24)
--- NOTE | 2016-10-16 10:39 | XRay Report ---
AP CHEST HISTORY: Followup respiratory failure. FINDINGS: Heart and mediastinal structures are within normal limits. The lungs are clear. There is no significant change since yesterday's exam. Endotracheal tube and nasogastric tube remain in good position. IMPRESSION: No change. Essentially unremarkable AP chest.
[2016-10-16] MEDS: HEPARIN SUB-Q SCH ×2 (13:11→21:24)
--- NOTE | 2016-10-16 14:58 | Progress Note ---
Assessment and Plan Assessment and plan: (1) Acute respiratory failure with hypercapnia Current Visit: Yes Status: Acute Plan to address problem: - resumed sedation and full AC support - will begin low dose seroquel for sedation without significant hypoventilation - continue bronchodilators and pulmonary toilet - continue aspiration precautions / VAP bundles - continue bronchodilators and pulmonary toilet - daily sedation vacations - contine empiric AB's (2) Altered mental status Current Visit: Yes Status: Acute Qualifiers: Altered mental status type: A Coma depth: C Coma timing: C Plan to address problem: - treat DKA - treat sepsis - correct acidosis - daily sedation vacations (3) LUCY (acute kidney injury) Current Visit: Yes Status: Acute Plan to address problem: - gentle hydration - improving - follow I's & O's (4) DKA (diabetic ketoacidoses) Current Visit: Yes Status: Acute Qualifiers: Diabetes mellitus type: D Diabetes mellitus complication detail: D Plan to address problem: - on IV insulin at 6units/hr currently - follow DKA protocol (5) Sepsis Current Visit: No Status: Acute Qualifiers: Sepsis type: S Plan to address problem: - follow cultures (NGTD) - continue empiric AB's (6) Discharge planning issues Current Visit: No Status: Acute Plan to address problem: ....remains critically ill on life sustaining therapies including MVS at high risk for further deterioration including ....34' CCT Acute Respiratory failure Intubated and sedated repeat ABG wean off vent as tolerated Acute on chronic renal failure Renal function improving, current serum creatinine 1.5 today, admission serum creatinine 2.6 Renal ultrasound result- pending Renally dose medications Strict I/O monitoring DKA (diabetic ketoacidoses) On insulin drip On D5W@ 150 ml/hr Hypophosphatemia, K-phos 30 mmol IV x1 Hyperkalemia, Resolved Metabolic encephalopathy, cont to monitor, CT head no acute change likley due to severe DKA Acute pancreatitis Trend lipase Continue aggressive iv fluid hydration, and keep nothing by mouth Vaginal candidiasis Place on Diflucan and local Miconazole cream Hypernatremia, change IV fluid to D5 quarter normal saline History Interval history: Patient seen and examined. Follow up on DKA and still intubated. Overnight uneventful. No cp, sob, n/v or severe headaches. Imaging, old records, testing, labs, nursing notes reviewed. Hospitalist Physical - Physical exam Narrative exam: GEN: Intubated and sedated CVS: Tachycardic NORMAL S1S2 LUNGS/CHEST: Tachypnea NORMAL CHEST EXPANSION B, GOOD AIR ENTRY B ABD: SOFT NTND, GBS, NO REBOUND OR GUARDING NEURO: CN 2-12 GROSSLY INTACT, doesn't follow commands PSY: Anxious - Constitutional Vitals: Temp Pulse Resp BP Pulse Ox 101.8 F H 152 H 0 L 133/72 100 10/16/16 08:00 10/16/16 13:12 10/16/16 12:21 10/16/16 13:12 10/16/16 12:21 Results - Labs CBC & Chem 7: 10/16/16 05:58 10/16/16 04:14 Labs: Laboratory Last Values WBC 16.5 K/mm3 (4.5-11.0) H 10/16/16 05:58 RBC 3.36 M/mm3 (3.65-5.03) L 10/16/16 05:58 Hgb 10.7 gm/dl (10.1-14.3) 10/16/16 05:58 Hct 32.8 % (30.3-42.9) 10/16/16 05:58 MCV 98 fl (79-97) H 10/16/16 05:58 MCH 32 pg (28-32) 10/16/16 05:58 MCHC 33 % (30-34) 10/16/16 05:58 RDW 13.1 % (13.2-15.2) L 10/16/16 05:58 Plt Count 154 K/mm3 (140-440) 10/16/16 05:58 Lymph % (Auto) 8.5 % (13.4-35.0) L 10/16/16 05:58 [place] % (Auto) 7.6 % (0.0-7.3) H 10/16/16 05:58 Eos % (Auto) 0.5 % (0.0-4.3) 10/16/16 05:58 Baso % (Auto) 0.1 % (0.0-1.8) 10/16/16 05:58 Lymph # 1.4 K/mm3 (1.2-5.4) 10/16/16 05:58 [place] # 1.3 K/mm3 (0.0-0.8) H 10/16/16 05:58 Eos # 0.1 K/mm3 (0.0-0.4) 10/16/16 05:58 Baso # 0.0 K/mm3 (0.0-0.1) 10/16/16 05:58 Add Manual Diff Complete 10/13/16 04:22 Total Counted 100 10/13/16 04:22 Seg Neutrophils % 83.3 % (40.0-70.0) H 10/16/16 05:58 Seg Neuts % (Manual) 71.0 % (40.0-70.0) H 10/13/16 04:22 Band Neutrophils % 9.0 % 10/13/16 04:22 Lymphocytes % (Manual) 12.0 % (13.4-35.0) L 10/13/16 04:22 Reactive Lymphs % (Man) 0 % 10/13/16 04:22 Monocytes % (Manual) 8.0 % (0.0-7.3) H 10/13/16 04:22 Eosinophils % (Manual) 0 % (0.0-4.3) 10/13/16 04:22 Basophils % (Manual) 0 % (0.0-1.8) 10/13/16 04:22 Metamyelocytes % 0 % 10/13/16 04:22 Myelocytes % 0 % 10/13/16 04:22 Promyelocytes % 0 % 10/13/16 04:22 Blast Cells % 0 % 10/13/16 04:22 Nucleated RBC % Not Reportable 10/13/16 04:22 Seg Neutrophils # 13.8 K/mm3 (1.8-7.7) H 10/16/16 05:58 Seg Neutrophils # Man 12.4 K/mm3 (1.8-7.7) H 10/13/16 04:22 Band Neutrophils # 1.6 K/mm3 10/13/16 04:22 Lymphocytes # (Manual) 2.1 K/mm3 (1.2-5.4) 10/13/16 04:22 Abs React Lymphs (Man) 0.0 K/mm3 10/13/16 04:22 Monocytes # (Manual) 1.4 K/mm3 (0.0-0.8) H 10/13/16 04:22 Eosinophils # (Manual) 0.0 K/mm3 (0.0-0.4) 10/13/16 04:22 Basophils # (Manual) 0.0 K/mm3 (0.0-0.1) 10/13/16 04:22 Metamyelocytes # 0.0 K/mm3 10/13/16 04:22 Myelocytes # 0.0 K/mm3 10/13/16 04:22 Promyelocytes # 0.0 K/mm3 10/13/16 04:22 Blast Cells # 0.0 K/mm3 10/13/16 04:22 WBC Morphology Not Reportable 10/13/16 04:22 Hypersegmented Neuts Not Reportable 10/13/16 04:22 Hyposegmented Neuts Not Reportable 10/13/16 04:22 Hypogranular Neuts Not Reportable 10/13/16 04:22 Smudge Cells Not Reportable 10/13/16 04:22 Toxic Granulation Not Reportable 10/13/16 04:22 Toxic Vacuolation Not Reportable 10/13/16 04:22 Dohle Bodies Not Reportable 10/13/16 04:22 Pelger-Huet Anomaly Not Reportable 10/13/16 04:22 Alka Rods Not Reportable 10/13/16 04:22 Platelet Estimate Consistent w auto 10/13/16 04:22 Clumped Platelets Not Reportable 10/13/16 04:22 Plt Clumps, EDTA Not Reportable 10/13/16 04:22 Large Platelets Not Reportable 10/13/16 04:22 Giant Platelets Not Reportable 10/13/16 04:22 Platelet Satelliting Not Reportable 10/13/16 04:22 Plt Morphology Comment Not Reportable 10/13/16 04:22 RBC Morphology Not Reportable 10/13/16 04:22 Dimorphic RBCs Not Reportable 10/13/16 04:22 Polychromasia Rare 10/13/16 04:22 Hypochromasia Not Reportable 10/13/16 04:22 Poikilocytosis Not Reportable 10/13/16 04:22 Anisocytosis 1+ 10/13/16 04:22 Microcytosis Not Reportable 10/13/16 04:22 Macrocytosis Not Reportable 10/13/16 04:22 Spherocytes Not Reportable 10/13/16 04:22 Pappenheimer Bodies Not Reportable 10/13/16 04:22 Sickle Cells Not Reportable 10/13/16 04:22 Target Cells Not Reportable 10/13/16 04:22 Tear Drop Cells Not Reportable 10/13/16 04:22 Ovalocytes Not Reportable 10/13/16 04:22 Helmet Cells Not Reportable 10/13/16 04:22 Higgins-Lagrange Bodies Not Reportable 10/13/16 04:22 [place] Rings Not Reportable 10/13/16 04:22 Jeannette Cells Not Reportable 10/13/16 04:22 Bite Cells Not Reportable 10/13/16 04:22 Crenated Cell Not Reportable 10/13/16 04:22 Elliptocytes Not Reportable 10/13/16 04:22 Acanthocytes (Spur) Not Reportable 10/13/16 04:22 Rouleaux Not Reportable 10/13/16 04:22 Hemoglobin C Crystals Not Reportable 10/13/16 04:22 Schistocytes Not Reportable 10/13/16 04:22 Malaria parasites Not Reportable 10/13/16 04:22 David Bodies Not Reportable 10/13/16 04:22 Hem Pathologist Commnt No 10/13/16 04:22 POC ABG pH 7.407 (7.35-7.45) 10/16/16 09:35 POC ABG pCO2 32.8 (35-45) L 10/16/16 09:35 POC ABG pO2 137 (80-105) H 10/16/16 09:35 POC ABG HCO3 20.6 10/16/16 09:35 POC ABG Total CO2 22 10/16/16 09:35 POC ABG O2 Sat 99 10/16/16 09:35 POC ABG Base Excess -4 10/16/16 09:35 VBG pH 7.020 (7.320-7.420) L* 10/13/16 04:22 FiO2 30 % 10/16/16 09:35 Sodium 147 mmol/L (137-145) H 10/16/16 04:14 Potassium 4.0 mmol/L (3.6-5.0) D 10/16/16 04:14 Chloride 110.9 mmol/L (98-107) H 10/16/16 04:14 Carbon Dioxide 19 mmol/L (22-30) L 10/16/16 04:14 Anion Gap 21 mmol/L 10/16/16 04:14 BUN 16 mg/dL (7-17) 10/16/16 04:14 Creatinine 1.1 mg/dL (0.7-1.2) 10/16/16 04:14 Estimated GFR > 60 ml/min 10/16/16 04:14 BUN/Creatinine Ratio 14.54 % 10/16/16 04:14 Glucose 139 mg/dL (65-100) H 10/16/16 04:14 POC Glucose 144 (70-105) H 10/16/16 04:49 Osmolality 332 Mosm/kg 10/14/16 07:03 Lactic Acid 1.8 mmol/L (0.7-2.0) 10/14/16 07:03 Calcium 7.3 mg/dL (8.4-10.2) L 10/16/16 04:14 Phosphorus 2.3 mg/dL (2.5-4.5) L 10/16/16 04:14 Magnesium 1.7 mg/dL (1.7-2.3) 10/16/16 04:14 Total Bilirubin 0.5 mg/dL (0.1-1.2) 10/15/16 04:40 AST 79 units/L (5-40) H 10/15/16 04:40 ALT 27 units/L (7-56) 10/15/16 04:40 Alkaline Phosphatase 80 units/L (35-129) 10/15/16 04:40 Ammonia 35.0 umol/L (25-60) 10/13/16 05:40 Total Creatine Kinase 107 units/L (30-135) 10/13/16 04:22 CK-MB (CK-2) 3.1 ng/mL (0.0-4.0) 10/13/16 04:22 CK-MB (CK-2) Rel Index 2.8 (0-4) 10/13/16 04:22 Troponin T < 0.010 ng/mL (0.00-0.029) 10/14/16 18:55 C-Reactive Protein 10.50 mg/dL (0.00-1.30) H 10/13/16 16:14 Total Protein 5.5 g/dL (6.3-8.2) L 10/15/16 04:40 Albumin 3.0 g/dL (3.9-5) L 10/15/16 04:40 Albumin/Globulin Ratio 1.2 % 10/15/16 04:40 Lipase 143 units/L (13-60) H 10/16/16 04:14 Urine Color Yellow (Yellow) 10/15/16 11:05 Urine Turbidity Cloudy (Clear) 10/15/16 11:05 Urine pH 5.0 (5.0-7.0) 10/15/16 11:05 Ur Specific [place] 1.009 (1.003-1.030) 10/15/16 11:05 Urine Protein 30 mg/dl mg/dL (Negative) 10/15/16 11:05 Urine Glucose (UA) 150 mg/dL (Negative) 10/15/16 11:05 Urine Ketones Neg mg/dL (Negative) 10/15/16 11:05 Urine Blood Lg (Negative) 10/15/16 11:05 Urine Nitrite Neg (Negative) 10/15/16 11:05 Urine Bilirubin Neg (Negative) 10/15/16 11:05 Urine Urobilinogen < 2.0 mg/dL (<2.0) 10/15/16 11:05 Ur Leukocyte Esterase Neg (Negative) 10/15/16 11:05 Urine WBC (Auto) 7.0 /HPF (0.0-6.0) H 10/15/16 11:05 Urine RBC (Auto) 7.0 /HPF (0.0-6.0) 10/15/16 11:05 U Epithel Cells (Auto) 1.0 /HPF (0-13.0) 10/15/16 11:05 Urine Mucus Few /HPF 10/15/16 11:05 Urine Yeast (Budding) 2+ /HPF 10/15/16 11:05 Urine Osmolality 487 Mosm/kg 10/13/16 Unknown Urine Creatinine < 4.2 mg/dL (0.1-20.0) 10/13/16 Unknown Protein/Creatinin Ratio 0.00 10/13/16 Unknown Urine Sodium 10 mEq/L 10/13/16 Unknown Urine Potassium 1.00 mEq/L 10/13/16 Unknown Urine Chloride 10.0 mEq/L (110-250) L 10/13/16 Unknown Urine Total Protein < 4 mg/dL (5-11.8) L 10/13/16 Unknown Ketones 107.3 mg/dL (0.2-2.8) H 10/13/16 04:22
[2016-10-16] MEDS ORDERED: MOTRIN FEEDTUBE ONE (15:50)
[2016-10-16] MEDS: LEVAQUIN 500MG/100ML 500 MG/100 ML BAG IV SCH (16:33)
[2016-10-16] MEDS: VERSED/NS 100MG/100ML 100 MG/100 ML BAG IV SCH (18:10)
--- NOTE | 2016-10-16 19:13 | Progress Note ---
Assessment and Plan - Patient Problems (1) Acute respiratory failure with hypercapnia Current Visit: Yes Status: Acute Plan to address problem: Continue with mechanical ventilatory support. VAP bundle Critical bundle addressed Agitation management Adjust ventilator settings for better gas-exchange VTYE/Stress ulcer prophylaxis SAT/SBT Glycemic control (2) DKA (diabetic ketoacidoses) Current Visit: Yes Status: Acute Qualifiers: Diabetes mellitus type: D Diabetes mellitus complication detail: D Plan to address problem: DKA management per protocol (3) Altered mental status Current Visit: Yes Status: Acute Qualifiers: Altered mental status type: A Coma depth: C Coma timing: C (4) Acidosis Current Visit: Yes Status: Acute (5) Acute on chronic renal failure Current Visit: Yes Status: Acute Plan to address problem: Monitor renal function and electrolytes. Avoid nephrotoxic agents, adjust all medications for creatinine clearance (6) Sepsis Current Visit: Yes Status: Acute Qualifiers: Sepsis type: S Plan to address problem: Blood cultures, urine cultures Broaden antibiotic therapy while awaiting culture results especially with worsening acidosis. Remains hemodynamically stable (7) Cold foot Current Visit: Yes Status: Acute Qualifiers: Laterality: L Plan to address problem: Get arterial dopplers and vascular consult Subjective Date of service: 10/16/16 Principal diagnosis: respiratory failure on mechanical ventilatory support, DKA Interval history: patient seen and examined. Vitals, labs, medications, chart reviewed Having fevers, with on-going encephalopathy and agitation Objective - Exam Narrative Exam: GENERAL: -[place] female lying on bed appeared to be in no discomfort. Patient is intubated HEENT: Normocephalic. Atraumatic. No conjunctival congestion or icterus. Patient has dry mucous membranes. NECK: Supple. Trachea midline. ETT in place CHEST/LUNGS: Clear to auscultated bilaterally, breathing nonlabored. No wheezes crackles or rhonchi. HEART/CARDIOVASCULAR: Regular in rate and rhythm. S1 and S2 positive. ABDOMEN: Abdomen is soft, nontender. Patient has normal bowel sounds. SKIN: There is no rash. Warm and dry. NEURO: sedated MUSCULOSKELETAL: No joint effusion or tenderness. EXTREMITY: No edema, no cyanosis or clubbing. . Vital Signs - 12hr 10/16/16 10/16/16 10/16/16 08:00 08:20 08:30 Temperature 101.8 F H Pulse Rate 129 H Respiratory 21 Rate Blood Pressure 175/60 O2 Sat by Pulse 100 Oximetry 10/16/16 10/16/16 10/16/16 12:21 13:12 17:00 Temperature Pulse Rate 102 H 152 H 99 H Respiratory 0 L Rate Blood Pressure 120/57 133/72 121/65 O2 Sat by Pulse 100 100 Oximetry 10/16/16 18:41 Temperature Pulse Rate 107 H Respiratory Rate Blood Pressure 141/72 O2 Sat by Pulse Oximetry Constitutional: no acute distress, other (sedated) Eyes: non-icteric ENT: oropharynx moist Neck: supple, no lymphadenopathy Effort: mildly labored Ascultation: Bilateral: diminished breath sounds, rales Cardiovascular: regular rate and rhythm Gastrointestinal: normoactive bowel sounds, soft, non-tender, non-distended Integumentary: normal Extremities: no cyanosis, no edema, pulses normal (Cold right foot), no ischemia or petechiae Neurologic: unable to assess Psychiatric: other (sedated) CBC and BMP: 10/17/16 16:07 10/17/16 07:08 ABG, PT/INR, D-dimer: ABG POC ABG pH 7.407 (7.35-7.45) 10/16/16 09:35 POC ABG pCO2 32.8 (35-45) L 10/16/16 09:35 POC ABG pO2 137 (80-105) H 10/16/16 09:35 POC ABG HCO3 20.6 10/16/16 09:35 POC ABG Total CO2 22 10/16/16 09:35 POC ABG O2 Sat 99 10/16/16 09:35 Abnormal lab findings: Abnormal Labs 10/13/16 10/13/16 10/13/16 06:38 06:38 07:23 WBC RBC Hgb Hct MCV RDW Plt Count Lymph % (Auto) [place] % (Auto) [place] # Seg Neutrophils % Seg Neutrophils # POC ABG pH POC ABG pCO2 POC ABG pO2 Sodium Potassium 6.2 H* Chloride Carbon Dioxide 8 L* BUN 85 H Creatinine 2.8 H Glucose 602 H* POC Glucose 495 H Calcium 7.9 L Phosphorus 6.9 H D Magnesium 3.0 H AST C-Reactive Protein Total Protein Albumin Lipase Urine WBC (Auto) Urine Chloride Urine Total Protein 10/13/16 10/13/16 10/13/16 08:49 08:55 10:12 WBC RBC Hgb Hct MCV RDW Plt Count Lymph % (Auto) [place] % (Auto) [place] # Seg Neutrophils % Seg Neutrophils # POC ABG pH POC ABG pCO2 POC ABG pO2 Sodium Potassium 5.6 H Chloride Carbon Dioxide 11 L BUN 77 H Creatinine 2.7 H Glucose 457 H POC Glucose > 500 H 424 H Calcium 8.0 L Phosphorus Magnesium AST C-Reactive Protein Total Protein Albumin Lipase Urine WBC (Auto) Urine Chloride Urine Total Protein 10/13/16 10/13/16 10/13/16 10:44 11:22 12:20 WBC RBC Hgb Hct MCV RDW Plt Count Lymph % (Auto) [place] % (Auto) [place] # Seg Neutrophils % Seg Neutrophils # POC ABG pH POC ABG pCO2 POC ABG pO2 Sodium Potassium 5.4 H Chloride Carbon Dioxide 14 L BUN 72 H Creatinine 2.6 H Glucose 383 H POC Glucose 391 H 313 H Calcium 8.2 L Phosphorus Magnesium AST C-Reactive Protein Total Protein Albumin Lipase Urine WBC (Auto) Urine Chloride Urine Total Protein 10/13/16 10/13/16 10/13/16 13:32 14:44 15:57 WBC RBC Hgb Hct MCV RDW Plt Count Lymph % (Auto) [place] % (Auto) [place] # Seg Neutrophils % Seg Neutrophils # POC ABG pH POC ABG pCO2 POC ABG pO2 Sodium Potassium Chloride Carbon Dioxide BUN Creatinine Glucose POC Glucose 296 H 210 H 190 H Calcium Phosphorus Magnesium AST C-Reactive Protein Total Protein Albumin Lipase Urine WBC (Auto) Urine Chloride Urine Total Protein 10/13/16 10/13/16 10/13/16 16:14 16:14 17:17 WBC RBC Hgb Hct MCV RDW Plt Count Lymph % (Auto) [place] % (Auto) [place] # Seg Neutrophils % Seg Neutrophils # POC ABG pH POC ABG pCO2 POC ABG pO2 Sodium Potassium Chloride Carbon Dioxide 17 L BUN 58 H Creatinine 1.8 H Glucose 172 H POC Glucose 193 H Calcium 7.7 L Phosphorus Magnesium AST C-Reactive Protein 10.50 H Total Protein Albumin Lipase Urine WBC (Auto) Urine Chloride Urine Total Protein 10/13/16 10/13/16 10/13/16 17:55 18:32 19:41 WBC RBC Hgb Hct MCV RDW Plt Count Lymph % (Auto) [place] % (Auto) [place] # Seg Neutrophils % Seg Neutrophils # POC ABG pH POC ABG pCO2 30.6 L POC ABG pO2 218 H Sodium Potassium Chloride Carbon Dioxide BUN Creatinine Glucose POC Glucose 192 H 177 H Calcium Phosphorus Magnesium AST C-Reactive Protein Total Protein Albumin Lipase Urine WBC (Auto) Urine Chloride Urine Total Protein 10/13/16 10/13/16 10/13/16 20:54 22:07 23:13 WBC RBC Hgb Hct MCV RDW Plt Count Lymph % (Auto) [place] % (Auto) [place] # Seg Neutrophils % Seg Neutrophils # POC ABG pH POC ABG pCO2 POC ABG pO2 Sodium Potassium Chloride Carbon Dioxide BUN Creatinine Glucose POC Glucose 178 H 160 H 168 H Calcium Phosphorus Magnesium AST C-Reactive Protein Total Protein Albumin Lipase Urine WBC (Auto) Urine Chloride Urine Total Protein 10/13/16 10/13/16 10/14/16 23:25 Unknown 00:21 WBC RBC Hgb Hct MCV RDW Plt Count Lymph % (Auto) [place] % (Auto) [place] # Seg Neutrophils % Seg Neutrophils # POC ABG pH POC ABG pCO2 POC ABG pO2 Sodium 148 H Potassium Chloride 114.6 H Carbon Dioxide 17 L BUN 56 H Creatinine 1.6 H Glucose 151 H POC Glucose 171 H Calcium 7.8 L Phosphorus Magnesium AST C-Reactive Protein Total Protein Albumin Lipase Urine WBC (Auto) Urine Chloride 10.0 L Urine Total Protein < 4 L 10/14/16 10/14/16 10/14/16 01:22 02:29 03:30 WBC RBC Hgb Hct MCV RDW Plt Count Lymph % (Auto) [place] % (Auto) [place] # Seg Neutrophils % Seg Neutrophils # POC ABG pH POC ABG pCO2 POC ABG pO2 Sodium Potassium Chloride Carbon Dioxide BUN Creatinine Glucose POC Glucose 144 H 136 H 143 H Calcium Phosphorus Magnesium AST C-Reactive Protein Total Protein Albumin Lipase Urine WBC (Auto) Urine Chloride Urine Total Protein 10/14/16 10/14/16 10/14/16 04:28 05:16 05:44 WBC RBC Hgb Hct MCV RDW Plt Count Lymph % (Auto) [place] % (Auto) [place] # Seg Neutrophils % Seg Neutrophils # POC ABG pH POC ABG pCO2 28.2 L POC ABG pO2 125 H Sodium Potassium Chloride Carbon Dioxide BUN Creatinine Glucose POC Glucose 133 H 160 H Calcium Phosphorus Magnesium AST C-Reactive Protein Total Protein Albumin Lipase Urine WBC (Auto) Urine Chloride Urine Total Protein 10/14/16 10/14/16 10/14/16 06:12 06:45 07:03 WBC RBC Hgb Hct MCV RDW Plt Count Lymph % (Auto) [place] % (Auto) [place] # Seg Neutrophils % Seg Neutrophils # POC ABG pH POC ABG pCO2 POC ABG pO2 Sodium 149 H Potassium Chloride 115.4 H Carbon Dioxide 17 L BUN 45 H Creatinine 1.5 H Glucose 139 H POC Glucose 149 H Calcium 7.4 L Phosphorus 1.0 L D Magnesium AST C-Reactive Protein Total Protein Albumin Lipase Urine WBC (Auto) Urine Chloride Urine Total Protein 10/14/16 10/14/16 10/14/16 07:03 08:02 09:16 WBC RBC Hgb Hct MCV RDW Plt Count Lymph % (Auto) [place] % (Auto) [place] # Seg Neutrophils % Seg Neutrophils # POC ABG pH POC ABG pCO2 POC ABG pO2 Sodium Potassium Chloride Carbon Dioxide BUN Creatinine Glucose POC Glucose 156 H 158 H Calcium Phosphorus Magnesium AST C-Reactive Protein Total Protein Albumin Lipase 738 H Urine WBC (Auto) Urine Chloride Urine Total Protein 10/14/16 10/14/16 10/14/16 10:26 11:03 11:57 WBC RBC Hgb Hct MCV RDW Plt Count Lymph % (Auto) [place] % (Auto) [place] # Seg Neutrophils % Seg Neutrophils # POC ABG pH 7.198 L POC ABG pCO2 47.5 H POC ABG pO2 Sodium Potassium Chloride Carbon Dioxide BUN Creatinine Glucose POC Glucose 174 H 189 H Calcium Phosphorus Magnesium AST C-Reactive Protein Total Protein Albumin Lipase Urine WBC (Auto) Urine Chloride Urine Total Protein 10/14/16 10/14/16 10/14/16 12:02 12:02 13:11 WBC 13.4 H RBC 3.60 L Hgb Hct MCV 98 H D RDW 13.1 L Plt Count Lymph % (Auto) [place] % (Auto) [place] # Seg Neutrophils % Seg Neutrophils # POC ABG pH POC ABG pCO2 POC ABG pO2 Sodium Potassium Chloride 110.7 H Carbon Dioxide 19 L BUN 38 H Creatinine 1.4 H Glucose 182 H POC Glucose 173 H Calcium 7.5 L Phosphorus Magnesium AST C-Reactive Protein Total Protein Albumin Lipase Urine WBC (Auto) Urine Chloride Urine Total Protein 10/14/16 10/14/16 10/14/16 14:24 15:31 16:36 WBC RBC Hgb Hct MCV RDW Plt Count Lymph % (Auto) [place] % (Auto) [place] # Seg Neutrophils % Seg Neutrophils # POC ABG pH POC ABG pCO2 POC ABG pO2 Sodium Potassium Chloride Carbon Dioxide BUN Creatinine Glucose POC Glucose 123 H 124 H 156 H Calcium Phosphorus Magnesium AST C-Reactive Protein Total Protein Albumin Lipase Urine WBC (Auto) Urine Chloride Urine Total Protein 10/14/16 10/14/16 10/14/16 17:43 19:00 20:08 WBC RBC Hgb Hct MCV RDW Plt Count Lymph % (Auto) [place] % (Auto) [place] # Seg Neutrophils % Seg Neutrophils # POC ABG pH POC ABG pCO2 POC ABG pO2 Sodium Potassium Chloride Carbon Dioxide BUN Creatinine Glucose POC Glucose 154 H 123 H 138 H Calcium Phosphorus Magnesium AST C-Reactive Protein Total Protein Albumin Lipase Urine WBC (Auto) Urine Chloride Urine Total Protein 10/14/16 10/14/16 10/14/16 21:17 22:25 23:37 WBC RBC Hgb Hct MCV RDW Plt Count Lymph % (Auto) [place] % (Auto) [place] # Seg Neutrophils % Seg Neutrophils # POC ABG pH POC ABG pCO2 POC ABG pO2 Sodium Potassium Chloride Carbon Dioxide BUN Creatinine Glucose POC Glucose 148 H 132 H 137 H Calcium Phosphorus Magnesium AST C-Reactive Protein Total Protein Albumin Lipase Urine WBC (Auto) Urine Chloride Urine Total Protein 10/15/16 10/15/16 10/15/16 00:49 01:53 03:06 WBC RBC Hgb Hct MCV RDW Plt Count Lymph % (Auto) [place] % (Auto) [place] # Seg Neutrophils % Seg Neutrophils # POC ABG pH POC ABG pCO2 POC ABG pO2 Sodium Potassium Chloride Carbon Dioxide BUN Creatinine Glucose POC Glucose 132 H 134 H 134 H Calcium Phosphorus Magnesium AST C-Reactive Protein Total Protein Albumin Lipase Urine WBC (Auto) Urine Chloride Urine Total Protein 10/15/16 10/15/16 10/15/16 04:40 04:46 06:21 WBC RBC Hgb Hct MCV RDW Plt Count Lymph % (Auto) [place] % (Auto) [place] # Seg Neutrophils % Seg Neutrophils # POC ABG pH POC ABG pCO2 30.7 L POC ABG pO2 108 H Sodium Potassium Chloride 109.0 H Carbon Dioxide 17 L BUN 27 H Creatinine Glucose 124 H POC Glucose 160 H Calcium 7.5 L Phosphorus Magnesium AST 79 H C-Reactive Protein Total Protein 5.5 L Albumin 3.0 L Lipase Urine WBC (Auto) Urine Chloride Urine Total Protein 10/15/16 10/15/16 10/15/16 07:12 08:01 09:03 WBC RBC Hgb Hct MCV RDW Plt Count Lymph % (Auto) [place] % (Auto) [place] # Seg Neutrophils % Seg Neutrophils # POC ABG pH POC ABG pCO2 POC ABG pO2 Sodium Potassium Chloride Carbon Dioxide BUN Creatinine Glucose POC Glucose 179 H 187 H 165 H Calcium Phosphorus Magnesium AST C-Reactive Protein Total Protein Albumin Lipase Urine WBC (Auto) Urine Chloride Urine Total Protein 10/15/16 10/15/16 10/15/16 10:06 10:06 10:07 WBC 12.1 H RBC 3.01 L Hgb 9.7 L Hct 29.6 L MCV 98 H RDW Plt Count 129 L Lymph % (Auto) [place] % (Auto) [place] # Seg Neutrophils % Seg Neutrophils # POC ABG pH POC ABG pCO2 POC ABG pO2 Sodium Potassium 3.2 L D Chloride 109.6 H Carbon Dioxide 18 L BUN 22 H Creatinine Glucose 127 H POC Glucose 147 H Calcium 7.0 L Phosphorus Magnesium AST C-Reactive Protein Total Protein Albumin Lipase Urine WBC (Auto) Urine Chloride Urine Total Protein 10/15/16 10/15/16 10/15/16 11:05 11:06 11:57 WBC RBC Hgb Hct MCV RDW Plt Count Lymph % (Auto) [place] % (Auto) [place] # Seg Neutrophils % Seg Neutrophils # POC ABG pH 7.305 L POC ABG pCO2 POC ABG pO2 Sodium Potassium Chloride Carbon Dioxide BUN Creatinine Glucose POC Glucose 145 H Calcium Phosphorus Magnesium AST C-Reactive Protein Total Protein Albumin Lipase Urine WBC (Auto) 7.0 H Urine Chloride Urine Total Protein 10/15/16 10/15/16 10/15/16 12:04 13:59 15:24 WBC RBC Hgb Hct MCV RDW Plt Count Lymph % (Auto) [place] % (Auto) [place] # Seg Neutrophils % Seg Neutrophils # POC ABG pH POC ABG pCO2 POC ABG pO2 Sodium Potassium Chloride Carbon Dioxide BUN Creatinine Glucose POC Glucose 123 H 147 H 153 H Calcium Phosphorus Magnesium AST C-Reactive Protein Total Protein Albumin Lipase Urine WBC (Auto) Urine Chloride Urine Total Protein 10/15/16 10/15/16 10/15/16 16:30 17:34 18:30 WBC RBC Hgb Hct MCV RDW Plt Count Lymph % (Auto) [place] % (Auto) [place] # Seg Neutrophils % Seg Neutrophils # POC ABG pH POC ABG pCO2 POC ABG pO2 Sodium Potassium Chloride Carbon Dioxide BUN Creatinine Glucose POC Glucose 223 H 236 H 164 H Calcium Phosphorus Magnesium AST C-Reactive Protein Total Protein Albumin Lipase Urine WBC (Auto) Urine Chloride Urine Total Protein 10/15/16 10/15/16 10/15/16 19:14 20:31 21:23 WBC RBC Hgb Hct MCV RDW Plt Count Lymph % (Auto) [place] % (Auto) [place] # Seg Neutrophils % Seg Neutrophils # POC ABG pH POC ABG pCO2 POC ABG pO2 Sodium Potassium Chloride Carbon Dioxide BUN Creatinine Glucose POC Glucose 138 H 158 H 158 H Calcium Phosphorus Magnesium AST C-Reactive Protein Total Protein Albumin Lipase Urine WBC (Auto) Urine Chloride Urine Total Protein 10/15/16 10/15/16 10/16/16 22:04 22:57 00:11 WBC RBC Hgb Hct MCV RDW Plt Count Lymph % (Auto) [place] % (Auto) [place] # Seg Neutrophils % Seg Neutrophils # POC ABG pH POC ABG pCO2 POC ABG pO2 Sodium Potassium Chloride Carbon Dioxide BUN Creatinine Glucose POC Glucose 168 H 213 H 166 H Calcium Phosphorus Magnesium AST C-Reactive Protein Total Protein Albumin Lipase Urine WBC (Auto) Urine Chloride Urine Total Protein 10/16/16 10/16/16 10/16/16 01:16 02:32 03:38 WBC RBC Hgb Hct MCV RDW Plt Count Lymph % (Auto) [place] % (Auto) [place] # Seg Neutrophils % Seg Neutrophils # POC ABG pH POC ABG pCO2 POC ABG pO2 Sodium Potassium Chloride Carbon Dioxide BUN Creatinine Glucose POC Glucose 171 H 164 H 147 H Calcium Phosphorus Magnesium AST C-Reactive Protein Total Protein Albumin Lipase Urine WBC (Auto) Urine Chloride Urine Total Protein 10/16/16 10/16/16 10/16/16 04:14 04:14 04:49 WBC RBC Hgb Hct MCV RDW Plt Count Lymph % (Auto) [place] % (Auto) [place] # Seg Neutrophils % Seg Neutrophils # POC ABG pH POC ABG pCO2 POC ABG pO2 Sodium 147 H Potassium Chloride 110.9 H Carbon Dioxide 19 L BUN Creatinine Glucose 139 H POC Glucose 144 H Calcium 7.3 L Phosphorus 2.3 L Magnesium AST C-Reactive Protein Total Protein Albumin Lipase 143 H Urine WBC (Auto) Urine Chloride Urine Total Protein 10/16/16 10/16/16 10/16/16 05:03 05:58 09:35 WBC 16.5 H RBC 3.36 L Hgb Hct MCV 98 H RDW 13.1 L Plt Count Lymph % (Auto) 8.5 L [place] % (Auto) 7.6 H [place] # 1.3 H Seg Neutrophils % 83.3 H Seg Neutrophils # 13.8 H POC ABG pH POC ABG pCO2 30.7 L 32.8 L POC ABG pO2 128 H 137 H Sodium Potassium Chloride Carbon Dioxide BUN Creatinine Glucose POC Glucose Calcium Phosphorus Magnesium AST C-Reactive Protein Total Protein Albumin Lipase Urine WBC (Auto) Urine Chloride Urine Total Protein Chest x-ray: image reviewed Allied health notes reviewed: RT
[2016-10-16] MEDS: MONISTAT VG SCH (21:30)
[2016-10-16] MEDS: NovoLIN R 100 UNITS in NACL 0.9% 99 ML IV SCH (23:56)
[2016-10-17 06:39] LABS: ISTAT Base Excess -3; ISTAT HCO3 21.1; ISTAT PCO2 30.1 (35-45); ISTAT PH 7.453 (7.35-7.45); ISTAT PO2 111 (80-105); ISTAT SO2 99; ISTAT TCO2 22
--- NOTE | 2016-10-17 07:16 | XRay Report ---
AP CHEST: HISTORY: Followup respiratory failure The endotracheal tube and nasogastric tube remain in good position. AP view of the chest demonstrates a normal mediastinal and cardiac contour with clear lungs and normal bony and soft tissue structures. IMPRESSION: No acute process. No significant change since yesterday's exam.
[2016-10-17] MEDS: HEPARIN SUB-Q SCH ×2 (07:19→13:05)
[2016-10-17] MEDS: LOPRESSOR IV SCH ×3 (07:20→17:59)
[2016-10-17] MEDS: D5W/0.45% NACL/KCL 30 MEQ 30 MEQ/1,000 ML BAG IV SCH (07:27)
[2016-10-17 07:55] LABS: Anion Gap 18 mmol/L; Blood Urea Nitrogen 12 mg/dL (7-17); Calcium 7.7 mg/dL (8.4-10.2); Carbon Dioxide 19 mmol/L (22-30); Chloride 113.8 mmol/L (98-107); Glucose 136 mg/dL (65-100); Phosphorous 2.6 mg/dL (2.5-4.5); Potassium 4.1 mmol/L (3.6-5.0); Sodium 147 mmol/L (137-145)
[2016-10-17 08:15] LABS: Hemoglobin TNR gm/dl (10.1-14.3); Red Blood Count TNR M/mm3 (3.65-5.03); White Blood Count TNR K/mm3 (4.5-11.0)
[2016-10-17 08:16] LABS: Hematocrit TNR % (30.3-42.9); Mean Corpuscular HGB Conc TNR % (30-34); Mean Corpuscular Hemoglobin TNR pg (28-32); Mean Corpuscular Volume TNR fl (79-97); Platelet Count TNR K/mm3 (140-440); Red Cell Distribution Width TNR % (13.2-15.2)
[2016-10-17 08:17] LABS: Basophils % (Auto) TNR % (0.0-1.8); Eosinophils % (Auto) TNR % (0.0-4.3); Mean Platelet Volume TNR fl (6-12)
[2016-10-17 08:18] LABS: Basophils % (Manual) TNR % (0.0-1.8); Blastocytes % (Manual) TNR %; Diff Status TNR; Eosinophils % (Manual) TNR % (0.0-4.3); Total Cells Counted Percent TNR
[2016-10-17 08:19] LABS: Chediak-Higashi Inclusions TNR; EDTA Platelet Clumps TNR; Giant Platelets TNR; Hypersegmented Neutrophils TNR; Hypersegmented Polys TNR; Large Platelets TNR; Nucleated Red Blood Cells TNR % (0.0-0.9); Platelet Clumps TNR; Platelet Estimate TNR; Platelet Morphology TNR; RBC Morphology TNR; Smudge Cells TNR
[2016-10-17 08:20] LABS: Anisocytosis TNR; Basophilic Stippling TNR; Hypochromasia TNR; Macrocytosis TNR; Microcytosis TNR; Poikilocytosis TNR; Polychromasia TNR; Sickle Cells TNR; Spherocytes TNR; Target Cells TNR; Tear Drop Cells TNR
[2016-10-17 08:54] LABS: Hematocrit 29.4 % (30.3-42.9); Hemoglobin 9.7 gm/dl (10.1-14.3); Mean Corpuscular HGB Conc 33 % (30-34); Mean Corpuscular Hemoglobin 32 pg (28-32); Mean Corpuscular Volume 98 fl (79-97); Platelet Count 116 K/mm3 (140-440); Red Blood Count 3.01 M/mm3 (3.65-5.03); Red Cell Distribution Width 13.2 % (13.2-15.2); White Blood Count 18.1 K/mm3 (4.5-11.0)
[2016-10-17] MEDS: LEVAQUIN 500MG/100ML 500 MG/100 ML BAG IV SCH (10:30)
[2016-10-17] MEDS: DIFLUCAN PO SCH (10:30)
[2016-10-17] MEDS: PEPCID IV SCH ×2 (10:30→22:03)
[2016-10-17 10:38] LABS: Basophils % (Manual) 0 % (0.0-1.8); Blastocytes % (Manual) 0 %
[2016-10-17 10:39] LABS: Anisocytosis 1+; Diff Status Complete
--- NOTE | 2016-10-17 11:22 | Progress Note ---
Assessment and Plan Assessment and plan: -Acute respiratory failure -Acute encephalopathy -DKA -Sepsis, Strept Group B tracheobronchitis: cont abx -ARF/CKD 3 -Pancreatitis, acute -Vaginal candidiasis -Hypernatremia New issue: cold right foot, consult Vascular surgery New issue: dka resolved, start long acting and stop drip. still trying to wean vent at bedside, updated him CCT 32 minutes History Interval history: Patient seen and examined. Follow up on DKA and still intubated. Overnight uneventful. No cp, sob, n/v or severe headaches. Imaging, old records, testing, labs, nursing notes reviewed. Hospitalist Physical - Physical exam Narrative exam: GEN: Intubated and sedated CVS: Tachycardic NORMAL S1S2 LUNGS/CHEST: Tachypnea NORMAL CHEST EXPANSION B, GOOD AIR ENTRY B ABD: SOFT NTND, GBS, NO REBOUND OR GUARDING NEURO: CN 2-12 GROSSLY INTACT, doesn't follow commands PSY: Anxious New issue: cold right foot, asked RN to get the bedside doppler. No pulse, consult Vascular and notified CCM - Constitutional Vitals: Temp Pulse Resp BP Pulse Ox 100.6 F H 105 H 31 H 150/71 100 10/17/16 08:29 10/17/16 07:20 10/17/16 06:00 10/17/16 07:20 10/17/16 07:13 Results - Labs CBC & Chem 7: 10/17/16 08:23 10/17/16 07:08 Labs: Laboratory Last Values WBC 18.1 K/mm3 (4.5-11.0) H 10/17/16 08:23 RBC 3.01 M/mm3 (3.65-5.03) L 10/17/16 08:23 Hgb 9.7 gm/dl (10.1-14.3) L 10/17/16 08:23 Hct 29.4 % (30.3-42.9) L 10/17/16 08:23 MCV 98 fl (79-97) H 10/17/16 08:23 MCH 32 pg (28-32) 10/17/16 08:23 MCHC 33 % (30-34) 10/17/16 08:23 RDW 13.2 % (13.2-15.2) 10/17/16 08:23 Plt Count 116 K/mm3 (140-440) L 10/17/16 08:23 Lymph % (Auto) TNR 10/17/16 07:08 [place] % (Auto) TNR 10/17/16 07:08 Eos % (Auto) TNR 10/17/16 07:08 Baso % (Auto) TNR 10/17/16 07:08 Lymph # TNR 10/17/16 07:08 [place] # TNR 10/17/16 07:08 Eos # TNR 10/17/16 07:08 Baso # TNR 10/17/16 07:08 Add Manual Diff Complete 10/17/16 08:23 Total Counted 100 10/17/16 08:23 Seg Neutrophils % TNR 10/17/16 07:08 Seg Neuts % (Manual) 77.0 % (40.0-70.0) H 10/17/16 08:23 Band Neutrophils % 6.0 % 10/17/16 08:23 Lymphocytes % (Manual) 4.0 % (13.4-35.0) L 10/17/16 08:23 Reactive Lymphs % (Man) 0 % 10/17/16 08:23 Monocytes % (Manual) 12.0 % (0.0-7.3) H 10/17/16 08:23 Eosinophils % (Manual) 1.0 % (0.0-4.3) 10/17/16 08:23 Basophils % (Manual) 0 % (0.0-1.8) 10/17/16 08:23 Metamyelocytes % 0 % 10/17/16 08:23 Myelocytes % 0 % 10/17/16 08:23 Promyelocytes % 0 % 10/17/16 08:23 Blast Cells % 0 % 10/17/16 08:23 Nucleated RBC % Not Reportable 10/17/16 08:23 Seg Neutrophils # TNR 10/17/16 07:08 Seg Neutrophils # Man 13.9 K/mm3 (1.8-7.7) H 10/17/16 08:23 Band Neutrophils # 1.1 K/mm3 10/17/16 08:23 Lymphocytes # (Manual) 0.7 K/mm3 (1.2-5.4) L 10/17/16 08:23 Abs React Lymphs (Man) 0.0 K/mm3 10/17/16 08:23 Monocytes # (Manual) 2.2 K/mm3 (0.0-0.8) H 10/17/16 08:23 Eosinophils # (Manual) 0.2 K/mm3 (0.0-0.4) 10/17/16 08:23 Basophils # (Manual) 0.0 K/mm3 (0.0-0.1) 10/17/16 08:23 Metamyelocytes # 0.0 K/mm3 10/17/16 08:23 Myelocytes # 0.0 K/mm3 10/17/16 08:23 Promyelocytes # 0.0 K/mm3 10/17/16 08:23 Blast Cells # 0.0 K/mm3 10/17/16 08:23 WBC Morphology Not Reportable 10/17/16 08:23 Hypersegmented Neuts Not Reportable 10/17/16 08:23 Hyposegmented Neuts Not Reportable 10/17/16 08:23 Hypogranular Neuts Not Reportable 10/17/16 08:23 Hypersegmented Polys TNR 10/17/16 07:08 Smudge Cells Not Reportable 10/17/16 08:23 Toxic Granulation Not Reportable 10/17/16 08:23 Toxic Vacuolation Not Reportable 10/17/16 08:23 Dohle Bodies Not Reportable 10/17/16 08:23 Pelger-Huet Anomaly Not Reportable 10/17/16 08:23 [place] Rods Not Reportable 10/17/16 08:23 Platelet Estimate Not Reportable 10/17/16 08:23 Clumped Platelets Not Reportable 10/17/16 08:23 Plt Clumps, EDTA Not Reportable 10/17/16 08:23 Large Platelets Not Reportable 10/17/16 08:23 Giant Platelets Not Reportable 10/17/16 08:23 Platelet Satelliting Not Reportable 10/17/16 08:23 Plt Morphology Comment Not Reportable 10/17/16 08:23 RBC Morphology Not Reportable 10/17/16 08:23 Dimorphic RBCs Not Reportable 10/17/16 08:23 Polychromasia Not Reportable 10/17/16 08:23 Hypochromasia Not Reportable 10/17/16 08:23 Poikilocytosis Not Reportable 10/17/16 08:23 Basophilic Stippling TNR 10/17/16 07:08 Anisocytosis 1+ 10/17/16 08:23 Microcytosis Not Reportable 10/17/16 08:23 Macrocytosis Not Reportable 10/17/16 08:23 Spherocytes Not Reportable 10/17/16 08:23 Pappenheimer Bodies Not Reportable 10/17/16 08:23 Sickle Cells Not Reportable 10/17/16 08:23 Target Cells Not Reportable 10/17/16 08:23 Tear Drop Cells Not Reportable 10/17/16 08:23 Ovalocytes Not Reportable 10/17/16 08:23 Helmet Cells Not Reportable 10/17/16 08:23 [place] Bodies Not Reportable 10/17/16 08:23 [place] Rings Not Reportable 10/17/16 08:23 [place] Cells Not Reportable 10/17/16 08:23 Bite Cells Not Reportable 10/17/16 08:23 Crenated Cell Not Reportable 10/17/16 08:23 Elliptocytes Not Reportable 10/17/16 08:23 Acanthocytes (Spur) Not Reportable 10/17/16 08:23 Rouleaux Not Reportable 10/17/16 08:23 Hemoglobin C Crystals Not Reportable 10/17/16 08:23 Schistocytes Not Reportable 10/17/16 08:23 Malaria parasites Not Reportable 10/17/16 08:23 [place] Bodies Not Reportable 10/17/16 08:23 Hem Pathologist Commnt No 10/17/16 08:23 POC ABG pH 7.453 (7.35-7.45) H 10/17/16 06:35 POC ABG pCO2 30.1 (35-45) L 10/17/16 06:35 POC ABG pO2 111 (80-105) H 10/17/16 06:35 POC ABG HCO3 21.1 10/17/16 06:35 POC ABG Total CO2 22 10/17/16 06:35 POC ABG O2 Sat 99 10/17/16 06:35 POC ABG Base Excess -3 10/17/16 06:35 VBG pH 7.020 (7.320-7.420) L* 10/13/16 04:22 FiO2 30 % 10/17/16 06:35 Sodium 147 mmol/L (137-145) H 10/17/16 07:08 Potassium 4.1 mmol/L (3.6-5.0) 10/17/16 07:08 Chloride 113.8 mmol/L (98-107) H 10/17/16 07:08 Carbon Dioxide 19 mmol/L (22-30) L 10/17/16 07:08 Anion Gap 18 mmol/L 10/17/16 07:08 BUN 12 mg/dL (7-17) 10/17/16 07:08 Creatinine 1.1 mg/dL (0.7-1.2) 10/17/16 07:08 Estimated GFR > 60 ml/min 10/17/16 07:08 BUN/Creatinine Ratio 10.90 % 10/17/16 07:08 Glucose 136 mg/dL (65-100) H 10/17/16 07:08 POC Glucose 136 (70-105) H 10/17/16 07:11 Osmolality 332 Mosm/kg 10/14/16 07:03 Lactic Acid 1.8 mmol/L (0.7-2.0) 10/14/16 07:03 Calcium 7.7 mg/dL (8.4-10.2) L 10/17/16 07:08 Phosphorus 2.6 mg/dL (2.5-4.5) 10/17/16 07:08 Magnesium 1.7 mg/dL (1.7-2.3) 10/16/16 04:14 Total Bilirubin 0.5 mg/dL (0.1-1.2) 10/15/16 04:40 AST 79 units/L (5-40) H 10/15/16 04:40 ALT 27 units/L (7-56) 10/15/16 04:40 Alkaline Phosphatase 80 units/L (35-129) 10/15/16 04:40 Ammonia 35.0 umol/L (25-60) 10/13/16 05:40 Total Creatine Kinase 107 units/L (30-135) 10/13/16 04:22 CK-MB (CK-2) 3.1 ng/mL (0.0-4.0) 10/13/16 04:22 CK-MB (CK-2) Rel Index 2.8 (0-4) 10/13/16 04:22 Troponin T < 0.010 ng/mL (0.00-0.029) 10/14/16 18:55 C-Reactive Protein 10.50 mg/dL (0.00-1.30) H 10/13/16 16:14 Total Protein 5.5 g/dL (6.3-8.2) L 10/15/16 04:40 Albumin 3.0 g/dL (3.9-5) L 10/15/16 04:40 Albumin/Globulin Ratio 1.2 % 10/15/16 04:40 Lipase 143 units/L (13-60) H 10/16/16 04:14 Urine Color Yellow (Yellow) 10/15/16 11:05 Urine Turbidity Cloudy (Clear) 10/15/16 11:05 Urine pH 5.0 (5.0-7.0) 10/15/16 11:05 Ur Specific [place] 1.009 (1.003-1.030) 10/15/16 11:05 Urine Protein 30 mg/dl mg/dL (Negative) 10/15/16 11:05 Urine Glucose (UA) 150 mg/dL (Negative) 10/15/16 11:05 Urine Ketones Neg mg/dL (Negative) 10/15/16 11:05 Urine Blood Lg (Negative) 10/15/16 11:05 Urine Nitrite Neg (Negative) 10/15/16 11:05 Urine Bilirubin Neg (Negative) 10/15/16 11:05 Urine Urobilinogen < 2.0 mg/dL (<2.0) 10/15/16 11:05 Ur Leukocyte Esterase Neg (Negative) 10/15/16 11:05 Urine WBC (Auto) 7.0 /HPF (0.0-6.0) H 10/15/16 11:05 Urine RBC (Auto) 7.0 /HPF (0.0-6.0) 10/15/16 11:05 U Epithel Cells (Auto) 1.0 /HPF (0-13.0) 10/15/16 11:05 Urine Mucus Few /HPF 10/15/16 11:05 Urine Yeast (Budding) 2+ /HPF 10/15/16 11:05 Urine Osmolality 487 Mosm/kg 10/13/16 Unknown Urine Creatinine < 4.2 mg/dL (0.1-20.0) 10/13/16 Unknown Protein/Creatinin Ratio 0.00 10/13/16 Unknown Urine Sodium 10 mEq/L 10/13/16 Unknown Urine Potassium 1.00 mEq/L 10/13/16 Unknown Urine Chloride 10.0 mEq/L (110-250) L 10/13/16 Unknown Urine Total Protein < 4 mg/dL (5-11.8) L 10/13/16 Unknown Ketones 107.3 mg/dL (0.2-2.8) H 10/13/16 04:22
[2016-10-17] MEDS ORDERED: FLUARIX QUAD 2016-2017(36 MOS+) IM ONE (12:00)
[2016-10-17] MEDS ORDERED: LEVEMIR SUB-Q ONE (12:00)
[2016-10-17] MEDS ORDERED: PNEUMOVAX 23 IM ONE (12:00)
[2016-10-17] MEDS: NOVOLOG SUB-Q SCH ×2 (12:55→18:51)
--- NOTE | 2016-10-17 14:32 | Cat Scan Report ---
CT HEAD WITHOUT CONTRAST: HISTORY: Altered mental status. Serial contiguous axial images were obtained through the cranium. Intravenous contrast material was not administered. The ventricles are normal in size and appearance. There is no mass effect or midline shift. No areas of abnormally increased or decreased attenuation are seen. No mass lesion is seen. The mastoid air cells and visualized portions of the sinuses are normal. IMPRESSION: Cranial CT scan within normal limits. No significant change since 10/13/16.
[2016-10-17] MEDS: HEPARIN/ 0.45% NACL-25,000 UNIT/500 ML 25,000 UNITS/500 ML BAG IV SCH (16:08)
--- NOTE | 2016-10-17 16:23 | Progress Note ---
Assessment and Plan - Patient Problems (1) Acute on chronic renal failure Current Visit: Yes Status: Acute Plan to address problem: Renal function improving, current serum creatinine 1.1 today, admission serum creatinine 2.6 Obtain daily weights Renally dose medications Strict I/O monitoring, stewart catheter present Will continue to monitor renal function closely (2) DKA (diabetic ketoacidoses) Current Visit: Yes Status: Acute Qualifiers: Diabetes mellitus type: D Diabetes mellitus complication detail: D Plan to address problem: S/P insulin drip (3) Respiratory failure Current Visit: Yes Status: Acute Qualifiers: Chronicity: C Respiratory failure complication: R Plan to address problem: Intubated (4) Acidosis Current Visit: Yes Status: Acute Plan to address problem: Acidosis secondary to DKA Subjective Date of service: 10/17/16 Principal diagnosis: respiratory failure on mechanical ventilatory support, DKA Interval history: Patient intubated. at bedside. Objective - Vital Signs Vital signs: Vital Signs - 12hr 10/17/16 10/17/16 10/17/16 04:30 05:01 05:30 Temperature 99.7 F H Pulse Rate 93 H 111 H Respiratory 19 13 Rate Blood Pressure 129/64 126/71 O2 Sat by Pulse 100 100 Oximetry 10/17/16 10/17/16 10/17/16 05:31 06:00 06:30 Temperature Pulse Rate 119 H 116 H 104 H Respiratory 27 H 31 H 20 Rate Blood Pressure 146/68 145/76 130/66 O2 Sat by Pulse 100 100 100 Oximetry 10/17/16 10/17/16 10/17/16 07:01 07:13 07:20 Temperature Pulse Rate 105 H 104 H 105 H Respiratory 20 Rate Blood Pressure 150/71 150/71 150/71 O2 Sat by Pulse 100 100 Oximetry 10/17/16 10/17/16 10/17/16 07:30 08:00 08:29 Temperature 100.6 F H Pulse Rate 87 85 Respiratory 20 20 Rate Blood Pressure 133/61 119/62 O2 Sat by Pulse 100 100 Oximetry 10/17/16 10/17/16 10/17/16 08:30 09:00 09:30 Temperature Pulse Rate 104 H 96 H 92 H Respiratory 35 H 19 20 Rate Blood Pressure 151/67 113/57 111/57 O2 Sat by Pulse 100 100 100 Oximetry 10/17/16 10/17/16 10/17/16 10:00 10:30 11:00 Temperature Pulse Rate 96 H 106 H 110 H Respiratory 20 17 20 Rate Blood Pressure 137/66 139/57 140/64 O2 Sat by Pulse 100 100 100 Oximetry 10/17/16 10/17/16 10/17/16 11:30 12:00 12:30 Temperature 99.7 F H Pulse Rate 119 H 118 H 118 H Respiratory 21 21 20 Rate Blood Pressure 139/62 139/58 133/53 O2 Sat by Pulse 100 100 100 Oximetry 10/17/16 10/17/16 10/17/16 13:00 13:04 13:30 Temperature Pulse Rate 104 H 117 H 96 H Respiratory 22 17 Rate Blood Pressure 125/62 133/53 115/59 O2 Sat by Pulse 100 100 Oximetry 10/17/16 10/17/16 10/17/16 14:15 14:30 15:00 Temperature Pulse Rate 109 H 104 H 97 H Respiratory 22 20 20 Rate Blood Pressure 135/58 115/60 113/60 O2 Sat by Pulse 100 100 100 Oximetry - General Appearance General appearance: intubated EENT: ATNC Neck: no JVD, supple Respiratory: Present: Decreased Breath Sounds Cardiology: regular, tachycardia, S1S2 Gastrointestinal: normoactive bowel sounds Integumentary: warm and dry Neurologic: other (Intubated and sedated) Musculoskeletal: other (mild edema) - Lab 10/17/16 16:07 10/17/16 07:08 Most recent lab results Calcium 7.7 mg/dL (8.4-10.2) L 10/17/16 07:08 Phosphorus 2.6 mg/dL (2.5-4.5) 10/17/16 07:08 Magnesium 1.7 mg/dL (1.7-2.3) 10/16/16 04:14 Urine Creatinine < 4.2 mg/dL (0.1-20.0) 10/13/16 Unknown Urine Sodium 10 mEq/L 10/13/16 Unknown Urine Total Protein < 4 mg/dL (5-11.8) L 10/13/16 Unknown
[2016-10-17 16:29] LABS: Hematocrit 31.5 % (30.3-42.9); Hemoglobin 10.2 gm/dl (10.1-14.3)
[2016-10-17 16:40] LABS: INR 1.33 (0.87-1.13)
[2016-10-17 16:41] LABS: Partial Thromboplastin Time 38.8 Sec. (24.2-36.6)
--- NOTE | 2016-10-17 17:22 | Consultation ---
History of Present Illness - Reason for Consult Consult date: 10/17/16 Ischemic Right Lower Extremity Requesting physician: RIP CORTES - History of Present Illness 63-year-old -[place] female was admitted on 10/13/2016 due to diabetic ketoacidosis , sepsis, pneumonia, with acute renal failure. She was intubated while in route by EMS. Following admission she was transferred to the critical- care unit. The Patient was evaluated by her nurse this morning. She was noted have a "cold" right lower extremity. An arterial duplex was ordered. This revealed a proximal right superficial femoral artery occlusion. A vascular surgery consultation was requested to further evaluate. Patient is presently intubated in the intensive care unit. She was confused, and is unable to follow commands. Past History Past Medical History: diabetes, hypertension Past Surgical History: Other (left alina surgery for fracture repair and thyroid surgery per ) Social history: Family history: no significant family history Medications and Allergies Allergies Allergy/AdvReac Type Severity Reaction Status Date / Time Penicillins Allergy Rash Verified 08/27/13 08:32 Home Medications Medication Instructions Recorded Confirmed Last Taken Type Insulin Aspart [NovoLOG Flexpen] 45 units SQ QPM 10/13/16 10/13/16 Unknown History Insulin Aspart [NovoLOG Flexpen] 50 units SQ QAM 10/13/16 10/13/16 Unknown History Insulin Detemir [Levemir VIAL] 20 unit SQ QHS 10/13/16 10/13/16 Unknown History Losartan [Cozaar] 25 mg PO QDAY 10/13/16 10/13/16 Unknown History Metoprolol [Lopressor] 25 mg PO BID 10/13/16 10/13/16 Unknown History Pregabalin [Lyrica] 75 mg PO BID 10/13/16 10/13/16 Unknown History Quetiapine Fumarate [Seroquel] 100 mg PO QHS 10/13/16 10/13/16 Unknown History amLODIPine [Norvasc] 5 mg PO DAILY 10/13/16 10/13/16 Unknown History clonazePAM [Klonopin] 1 mg PO BID PRN 10/13/16 10/13/16 Unknown History Active Meds: Active Medications Acetaminophen (Tylenol) 650 mg MA Q6H PRN PRN Reason: Pain, Mild (1-3) Last Admin: 10/16/16 21:39 Dose: 650 mg Lipase/Protease/Amylase (Pancreaze Dr 10,500 Unit) 1 each FEEDTUBE PRN PRN PRN Reason: For Clogged Feeding Tube Dextrose (D50w (25gm)) 50 ml IV PRN PRN PRN Reason: Hypoglycemia Famotidine (Pepcid) 20 mg IV BID JULI Last Admin: 10/17/16 10:30 Dose: 20 mg Fluconazole (Diflucan) 100 mg PO QDAY JULI Stop: 10/18/16 10:01 Last Admin: 10/17/16 10:30 Dose: 100 mg Hydrophilic Ointment (Vaseline Lip Therapy) 1 applic TP Q2HR PRN PRN Reason: Dry Lips Midazolam HCl (Versed/Ns 100mg/100ml) 100 mg in 100 mls @ 1 mls/hr IV TITR JULI ; 1 MG/HR PRN Reason: Protocol Last Titration: 10/17/16 06:00 Dose: 3 mg/hr, 3 mls/hr Sodium Chloride (Nacl 0.9% 1000 Ml) 1,000 mls @ 75 mls/hr IV DIRECT JULI Fentanyl Citrate (Fentanyl Drip Premix) 2,000 mcg in 100 mls @ 4.082 mls/hr IV TITR JULI; 1 MCG/KG/HR PRN Reason: Protocol Last Titration: 10/15/16 09:52 Dose: 0 mcg/kg/hr, 0 mls/hr Levofloxacin/Dextrose (Levaquin 500mg/100ml) 500 mg in 100 mls @ 100 mls/hr IV Q24HR JULI PRN Reason: Protocol Last Admin: 10/17/16 10:30 Dose: 100 mls/hr Heparin Sodium/Sodium Chloride (Heparin/ 0.45% Nacl-25,000 Unit/500 Ml) 25,000 units in 500 mls @ 24 mls/hr IV TITR JULI; 1,200 UNITS/HR PRN Reason: Protocol Last Admin: 10/17/16 16:08 Dose: 1,200 units/hr, 24 mls/hr Insulin Aspart (Novolog) 0 units SUB-Q Q6HR JULI PRN Reason: Protocol Last Admin: 10/17/16 12:55 Dose: Not Given Metoprolol Tartrate (Lopressor) 5 mg IV Q6HR JULI Last Admin: 10/17/16 13:04 Dose: 5 mg Miconazole (Monistat) 100 mg VG QHS [facility] Stop: 10/20/16 22:01 Last Admin: 10/16/16 21:30 Dose: 100 mg Multi-Ingred Cream/Lotion/Oil/Oint (Artificial Tears Ophth Oint) 1 applic OU Q4HR PRN PRN Reason: Dry Eye(s) Ondansetron HCl (Zofran) 4 mg IV Q8H PRN PRN Reason: N/V unrelieved by Reglan Quetiapine Fumarate (Seroquel) 50 mg PO BID [facility] Last Admin: 10/17/16 10:30 Dose: 50 mg Simple Syrup (Simple Syrup) 15 ml FEEDTUBE PRN PRN PRN Reason: Hypoglycemia Simple Syrup (Simple Syrup) 30 ml FEEDTUBE PRN PRN PRN Reason: Hypoglycemia Review of Systems ROS unobtainable: due to endotracheal tube, due to mental status Exam - Constitutional Vitals: Temp Pulse Resp BP Pulse Ox 99.7 F H 103 H 20 125/60 100 10/17/16 12:00 10/17/16 16:00 10/17/16 15:00 10/17/16 16:00 10/17/16 16:00 General appearance: Present: no acute distress - EENT Eyes: Present: EOM intact ENT: hearing intact - Respiratory Respiratory effort: other (on mechanical ventilation) - Extremities Extremity abnormal: cold (right lower extremity is "cool" from the distal one third of her right calf down to her toes. The right foot is pale and cool. The skin is presently viable, but appears ischemic.), pulses diminished ( palpate pedal pulses bilaterally.) - Psychiatric Psychiatric: no appropriate mood/affect, no intact judgment & insight, no cooperative - Neurologic Neurologic: other (incidental movement to the LLE, but no witnessed movement to the RLE.) Results - Labs CBC & Chem 7: 10/17/16 16:07 10/17/16 07:08 Labs: Abnormal lab results 10/16/16 10/16/16 10/16/16 Range/Units 05:41 06:32 09:27 WBC (4.5-11.0) K/mm3 RBC (3.65-5.03) M/mm3 Hgb (10.1-14.3) gm/dl Hct (30.3-42.9) % MCV (79-97) fl Plt Count (140-440) K/mm3 Seg Neuts % (Manual) (40.0-70.0) % Lymphocytes % (Manual) (13.4-35.0) % Monocytes % (Manual) (0.0-7.3) % Seg Neutrophils # Man (1.8-7.7) K/mm3 Lymphocytes # (Manual) (1.2-5.4) K/mm3 Monocytes # (Manual) (0.0-0.8) K/mm3 PT (12.2-14.9) Sec. INR (0.87-1.13) APTT (24.2-36.6) Sec. POC ABG pH (7.35-7.45) POC ABG pCO2 (35-45) POC ABG pO2 (80-105) Sodium (137-145) mmol/L Chloride (98-107) mmol/L Carbon Dioxide (22-30) mmol/L Glucose (65-100) mg/dL POC Glucose 131 H 121 H 150 H (70-105) Calcium (8.4-10.2) mg/dL 10/16/16 10/16/16 10/16/16 Range/Units 10:47 13:27 14:24 WBC (4.5-11.0) K/mm3 RBC (3.65-5.03) M/mm3 Hgb (10.1-14.3) gm/dl Hct (30.3-42.9) % MCV (79-97) fl Plt Count (140-440) K/mm3 Seg Neuts % (Manual) (40.0-70.0) % Lymphocytes % (Manual) (13.4-35.0) % Monocytes % (Manual) (0.0-7.3) % Seg Neutrophils # Man (1.8-7.7) K/mm3 Lymphocytes # (Manual) (1.2-5.4) K/mm3 Monocytes # (Manual) (0.0-0.8) K/mm3 PT (12.2-14.9) Sec. INR (0.87-1.13) APTT (24.2-36.6) Sec. POC ABG pH (7.35-7.45) POC ABG pCO2 (35-45) POC ABG pO2 (80-105) Sodium (137-145) mmol/L Chloride (98-107) mmol/L Carbon Dioxide (22-30) mmol/L Glucose (65-100) mg/dL POC Glucose 184 H 171 H 174 H (70-105) Calcium (8.4-10.2) mg/dL 10/16/16 10/16/16 10/16/16 Range/Units 15:48 16:26 18:17 WBC (4.5-11.0) K/mm3 RBC (3.65-5.03) M/mm3 Hgb (10.1-14.3) gm/dl Hct (30.3-42.9) % MCV (79-97) fl Plt Count (140-440) K/mm3 Seg Neuts % (Manual) (40.0-70.0) % Lymphocytes % (Manual) (13.4-35.0) % Monocytes % (Manual) (0.0-7.3) % Seg Neutrophils # Man (1.8-7.7) K/mm3 Lymphocytes # (Manual) (1.2-5.4) K/mm3 Monocytes # (Manual) (0.0-0.8) K/mm3 PT (12.2-14.9) Sec. INR (0.87-1.13) APTT (24.2-36.6) Sec. POC ABG pH (7.35-7.45) POC ABG pCO2 (35-45) POC ABG pO2 (80-105) Sodium (137-145) mmol/L Chloride (98-107) mmol/L Carbon Dioxide (22-30) mmol/L Glucose (65-100) mg/dL POC Glucose 205 H 204 H 234 H (70-105) Calcium (8.4-10.2) mg/dL 10/16/16 10/16/16 10/16/16 Range/Units 19:40 20:33 21:36 WBC (4.5-11.0) K/mm3 RBC (3.65-5.03) M/mm3 Hgb (10.1-14.3) gm/dl Hct (30.3-42.9) % MCV (79-97) fl Plt Count (140-440) K/mm3 Seg Neuts % (Manual) (40.0-70.0) % Lymphocytes % (Manual) (13.4-35.0) % Monocytes % (Manual) (0.0-7.3) % Seg Neutrophils # Man (1.8-7.7) K/mm3 Lymphocytes # (Manual) (1.2-5.4) K/mm3 Monocytes # (Manual) (0.0-0.8) K/mm3 PT (12.2-14.9) Sec. INR (0.87-1.13) APTT (24.2-36.6) Sec. POC ABG pH (7.35-7.45) POC ABG pCO2 (35-45) POC ABG pO2 (80-105) Sodium (137-145) mmol/L Chloride (98-107) mmol/L Carbon Dioxide (22-30) mmol/L Glucose (65-100) mg/dL POC Glucose 167 H 153 H 158 H (70-105) Calcium (8.4-10.2) mg/dL 10/16/16 10/16/16 10/17/16 Range/Units 22:54 23:48 00:47 WBC (4.5-11.0) K/mm3 RBC (3.65-5.03) M/mm3 Hgb (10.1-14.3) gm/dl Hct (30.3-42.9) % MCV (79-97) fl Plt Count (140-440) K/mm3 Seg Neuts % (Manual) (40.0-70.0) % Lymphocytes % (Manual) (13.4-35.0) % Monocytes % (Manual) (0.0-7.3) % Seg Neutrophils # Man (1.8-7.7) K/mm3 Lymphocytes # (Manual) (1.2-5.4) K/mm3 Monocytes # (Manual) (0.0-0.8) K/mm3 PT (12.2-14.9) Sec. INR (0.87-1.13) APTT (24.2-36.6) Sec. POC ABG pH (7.35-7.45) POC ABG pCO2 (35-45) POC ABG pO2 (80-105) Sodium (137-145) mmol/L Chloride (98-107) mmol/L Carbon Dioxide (22-30) mmol/L Glucose (65-100) mg/dL POC Glucose 180 H 207 H 196 H (70-105) Calcium (8.4-10.2) mg/dL 10/17/16 10/17/16 10/17/16 Range/Units 01:57 02:49 03:50 WBC (4.5-11.0) K/mm3 RBC (3.65-5.03) M/mm3 Hgb (10.1-14.3) gm/dl Hct (30.3-42.9) % MCV (79-97) fl Plt Count (140-440) K/mm3 Seg Neuts % (Manual) (40.0-70.0) % Lymphocytes % (Manual) (13.4-35.0) % Monocytes % (Manual) (0.0-7.3) % Seg Neutrophils # Man (1.8-7.7) K/mm3 Lymphocytes # (Manual) (1.2-5.4) K/mm3 Monocytes # (Manual) (0.0-0.8) K/mm3 PT (12.2-14.9) Sec. INR (0.87-1.13) APTT (24.2-36.6) Sec. POC ABG pH (7.35-7.45) POC ABG pCO2 (35-45) POC ABG pO2 (80-105) Sodium (137-145) mmol/L Chloride (98-107) mmol/L Carbon Dioxide (22-30) mmol/L Glucose (65-100) mg/dL POC Glucose 180 H 151 H 106 H (70-105) Calcium (8.4-10.2) mg/dL 10/17/16 10/17/16 10/17/16 Range/Units 04:59 06:03 06:35 WBC (4.5-11.0) K/mm3 RBC (3.65-5.03) M/mm3 Hgb (10.1-14.3) gm/dl Hct (30.3-42.9) % MCV (79-97) fl Plt Count (140-440) K/mm3 Seg Neuts % (Manual) (40.0-70.0) % Lymphocytes % (Manual) (13.4-35.0) % Monocytes % (Manual) (0.0-7.3) % Seg Neutrophils # Man (1.8-7.7) K/mm3 Lymphocytes # (Manual) (1.2-5.4) K/mm3 Monocytes # (Manual) (0.0-0.8) K/mm3 PT (12.2-14.9) Sec. INR (0.87-1.13) APTT (24.2-36.6) Sec. POC ABG pH 7.453 H (7.35-7.45) POC ABG pCO2 30.1 L (35-45) POC ABG pO2 111 H (80-105) Sodium (137-145) mmol/L Chloride (98-107) mmol/L Carbon Dioxide (22-30) mmol/L Glucose (65-100) mg/dL POC Glucose 145 H 157 H (70-105) Calcium (8.4-10.2) mg/dL 10/17/16 10/17/16 10/17/16 Range/Units 07:08 07:11 08:23 WBC 18.1 H (4.5-11.0) K/mm3 RBC 3.01 L (3.65-5.03) M/mm3 Hgb 9.7 L (10.1-14.3) gm/dl Hct 29.4 L (30.3-42.9) % MCV 98 H (79-97) fl Plt Count 116 L (140-440) K/mm3 Seg Neuts % (Manual) 77.0 H (40.0-70.0) % Lymphocytes % (Manual) 4.0 L (13.4-35.0) % Monocytes % (Manual) 12.0 H (0.0-7.3) % Seg Neutrophils # Man 13.9 H (1.8-7.7) K/mm3 Lymphocytes # (Manual) 0.7 L (1.2-5.4) K/mm3 Monocytes # (Manual) 2.2 H (0.0-0.8) K/mm3 PT (12.2-14.9) Sec. INR (0.87-1.13) APTT (24.2-36.6) Sec. POC ABG pH (7.35-7.45) POC ABG pCO2 (35-45) POC ABG pO2 (80-105) Sodium 147 H (137-145) mmol/L Chloride 113.8 H (98-107) mmol/L Carbon Dioxide 19 L (22-30) mmol/L Glucose 136 H (65-100) mg/dL POC Glucose 136 H (70-105) Calcium 7.7 L (8.4-10.2) mg/dL 10/17/16 Range/Units 16:07 WBC (4.5-11.0) K/mm3 RBC (3.65-5.03) M/mm3 Hgb (10.1-14.3) gm/dl Hct (30.3-42.9) % MCV (79-97) fl Plt Count (140-440) K/mm3 Seg Neuts % (Manual) (40.0-70.0) % Lymphocytes % (Manual) (13.4-35.0) % Monocytes % (Manual) (0.0-7.3) % Seg Neutrophils # Man (1.8-7.7) K/mm3 Lymphocytes # (Manual) (1.2-5.4) K/mm3 Monocytes # (Manual) (0.0-0.8) K/mm3 PT 16.4 H (12.2-14.9) Sec. INR 1.33 H (0.87-1.13) APTT 38.8 H (24.2-36.6) Sec. POC ABG pH (7.35-7.45) POC ABG pCO2 (35-45) POC ABG pO2 (80-105) Sodium (137-145) mmol/L Chloride (98-107) mmol/L Carbon Dioxide (22-30) mmol/L Glucose (65-100) mg/dL POC Glucose (70-105) Calcium (8.4-10.2) mg/dL Assessment and Plan Pt was admitted, with DKA, pneumonia, sepsis, and acute on CKD. She is presently intubated with AMS. She was given a sedation holiday, but did not become more alert. She was noted to have a cool leg on the PE this am by her nurse. An arterial duplex suggested a right proximal SFA occlusion. Her tibial arteries show chronic dz bilaterally. It is unclear how long her leg has been ischemic. At a minimum it started prior 7 am today. She would require fasciotomy following any revascularization. Given her current condition, aggressive arterial intervention has a high risk of morbidity/mortality. The tissue of her right foot is viable at this point, but her neurological status is worrisome. There was no signs of incidental movement on exam (but, she did move the LLE). Given new onset AMS, a stat CT scan of the head was ordered. There was no signs of acute ICH. She will be started on a standard wt based heparin gtt. We will follow along with you. The RBA of all options were discussed in great detail. The risk of limb loss were discussed with the pt's who understands. - Patient Problems (1) Ischemia of right lower extremity Current Visit: Yes Status: Acute (2) DKA (diabetic ketoacidoses) Current Visit: Yes Status: Acute Qualifiers: Diabetes mellitus type: D Diabetes mellitus complication detail: D (3) Acute on chronic renal failure Current Visit: Yes Status: Acute (4) Altered mental status Current Visit: Yes Status: Acute Qualifiers: Altered mental status type: A Coma depth: C Coma timing: C (5) Diabetes Current Visit: No Status: Chronic Qualifiers: Diabetes mellitus type: D Diabetes mellitus complication status: D Diabetes mellitus complication detail: D Diabetic retinopathy severity: D Proliferative retinopathy type: P Diabetes mellitus macular edema: D Diabetes mellitus jail insulin use: D Laterality: L Chronic kidney disease stage: C (6) Dyslipidemia Current Visit: No Status: Chronic (7) Hypertension Current Visit: No Status: Chronic Qualifiers: Hypertension type: H
[2016-10-17] MEDS: TYLENOL PR PRN (17:58)
--- NOTE | 2016-10-17 21:39 | Progress Note ---
Assessment and Plan - Patient Problems (1) Acute respiratory failure with hypercapnia Current Visit: Yes Status: Acute Plan to address problem: Continue with mechanical ventilatory support. VAP bundle Critical bundle addressed Agitation management Adjust ventilator settings for better gas-exchange VTYE/Stress ulcer prophylaxis SAT/SBT Glycemic control (2) DKA (diabetic ketoacidoses) Current Visit: Yes Status: Acute Qualifiers: Diabetes mellitus type: D Diabetes mellitus complication detail: D Plan to address problem: DKA management per protocol (3) Altered mental status Current Visit: Yes Status: Acute Qualifiers: Altered mental status type: A Coma depth: C Coma timing: C (4) Acidosis Current Visit: Yes Status: Acute (5) Acute on chronic renal failure Current Visit: Yes Status: Acute Plan to address problem: Monitor renal function and electrolytes. Avoid nephrotoxic agents, adjust all medications for creatinine clearance (6) Sepsis Current Visit: Yes Status: Acute Qualifiers: Sepsis type: S Plan to address problem: Blood cultures, urine cultures Broaden antibiotic therapy while awaiting culture results especially with worsening acidosis. Remains hemodynamically stable (7) Cold foot Current Visit: Yes Status: Acute Qualifiers: Laterality: L Plan to address problem: As per vascular service. Continue heparin infusion Subjective Date of service: 10/17/16 Principal diagnosis: respiratory failure on mechanical ventilatory support, DKA Interval history: patient seen and examined. Vitals, labs, medications, chart reviewed Having fevers, with on-going encephalopathy and agitation Objective - Exam Narrative Exam: GENERAL: -Emirati female lying on bed appeared to be in no discomfort. Patient is intubated HEENT: Normocephalic. Atraumatic. No conjunctival congestion or icterus. Patient has dry mucous membranes. NECK: Supple. Trachea midline. ETT in place CHEST/LUNGS: Clear to auscultated bilaterally, breathing nonlabored. No wheezes crackles or rhonchi. HEART/CARDIOVASCULAR: Regular in rate and rhythm. S1 and S2 positive. ABDOMEN: Abdomen is soft, nontender. Patient has normal bowel sounds. SKIN: There is no rash. Warm and dry. NEURO: sedated MUSCULOSKELETAL: No joint effusion or tenderness. EXTREMITY: No edema, no cyanosis or clubbing. Cold foot, without palpable pulse . Vital Signs - 12hr 10/17/16 10/17/16 10/17/16 10:00 10:30 11:00 Temperature Pulse Rate 92 H 106 H 110 H Respiratory 20 17 20 Rate Blood Pressure 137/66 139/57 140/64 O2 Sat by Pulse 100 100 100 Oximetry 10/17/16 10/17/16 10/17/16 11:30 12:00 12:30 Temperature 99.7 F H Pulse Rate 119 H 118 H 118 H Respiratory 21 21 20 Rate Blood Pressure 139/62 139/58 133/53 O2 Sat by Pulse 100 100 100 Oximetry 10/17/16 10/17/16 10/17/16 13:00 13:04 13:30 Temperature Pulse Rate 104 H 117 H 96 H Respiratory 22 17 Rate Blood Pressure 125/62 133/53 115/59 O2 Sat by Pulse 100 100 Oximetry 10/17/16 10/17/16 10/17/16 14:15 14:30 15:00 Temperature Pulse Rate 109 H 104 H 97 H Respiratory 22 20 20 Rate Blood Pressure 135/58 115/60 113/60 O2 Sat by Pulse 100 100 100 Oximetry 10/17/16 10/17/16 10/17/16 15:30 16:00 16:30 Temperature 101.7 F H Pulse Rate 93 H 102 H 102 H Respiratory 20 20 13 Rate Blood Pressure 106/55 125/59 125/60 O2 Sat by Pulse 100 98 100 Oximetry 10/17/16 10/17/16 10/17/16 17:00 17:30 17:59 Temperature Pulse Rate 103 H 106 H 106 H Respiratory 20 20 Rate Blood Pressure 120/61 126/61 126/61 O2 Sat by Pulse 100 100 Oximetry 10/17/16 10/17/16 10/17/16 18:00 18:30 19:00 Temperature Pulse Rate 97 H 94 H 96 H Respiratory 20 20 20 Rate Blood Pressure 124/61 117/61 124/53 O2 Sat by Pulse 100 100 100 Oximetry 10/17/16 10/17/16 10/17/16 19:30 20:00 20:22 Temperature 102.9 F H Pulse Rate 101 H 102 H 106 H Respiratory 17 20 Rate Blood Pressure 122/63 132/56 132/56 O2 Sat by Pulse 100 100 100 Oximetry Constitutional: no acute distress, other (sedated) Eyes: non-icteric ENT: oropharynx moist Neck: supple, no lymphadenopathy Effort: mildly labored Ascultation: Bilateral: diminished breath sounds, rales Cardiovascular: regular rate and rhythm Gastrointestinal: normoactive bowel sounds, soft, non-tender, non-distended Integumentary: normal Extremities: no cyanosis, no edema, pulses normal (Cold right foot), no ischemia or petechiae Neurologic: unable to assess Psychiatric: other (sedated) CBC and BMP: 10/20/16 05:20 10/20/16 05:20 ABG, PT/INR, D-dimer: ABG POC ABG pH 7.453 (7.35-7.45) H 10/17/16 06:35 POC ABG pCO2 30.1 (35-45) L 10/17/16 06:35 POC ABG pO2 111 (80-105) H 10/17/16 06:35 POC ABG HCO3 21.1 10/17/16 06:35 POC ABG Total CO2 22 10/17/16 06:35 POC ABG O2 Sat 99 10/17/16 06:35 PT/INR, D-dimer PT 16.4 Sec. (12.2-14.9) H 10/17/16 16:07 INR 1.33 (0.87-1.13) H 10/17/16 16:07 Abnormal lab findings: Abnormal Labs 10/13/16 10/13/16 10/13/16 06:38 06:38 07:23 WBC RBC Hgb Hct MCV RDW Plt Count Lymph % (Auto) [place] % (Auto) [place] # Seg Neutrophils % Seg Neuts % (Manual) Lymphocytes % (Manual) Monocytes % (Manual) Seg Neutrophils # Seg Neutrophils # Man Lymphocytes # (Manual) Monocytes # (Manual) PT INR APTT POC ABG pH POC ABG pCO2 POC ABG pO2 Sodium Potassium 6.2 H* Chloride Carbon Dioxide 8 L* BUN 85 H Creatinine 2.8 H Glucose 602 H* POC Glucose 495 H Calcium 7.9 L Phosphorus 6.9 H D Magnesium 3.0 H AST C-Reactive Protein Total Protein Albumin Lipase Urine WBC (Auto) Urine Chloride Urine Total Protein 10/13/16 10/13/16 10/13/16 08:49 08:55 10:12 WBC RBC Hgb Hct MCV RDW Plt Count Lymph % (Auto) [place] % (Auto) [place] # Seg Neutrophils % Seg Neuts % (Manual) Lymphocytes % (Manual) Monocytes % (Manual) Seg Neutrophils # Seg Neutrophils # Man Lymphocytes # (Manual) Monocytes # (Manual) PT INR APTT POC ABG pH POC ABG pCO2 POC ABG pO2 Sodium Potassium 5.6 H Chloride Carbon Dioxide 11 L BUN 77 H Creatinine 2.7 H Glucose 457 H POC Glucose > 500 H 424 H Calcium 8.0 L Phosphorus Magnesium AST C-Reactive Protein Total Protein Albumin Lipase Urine WBC (Auto) Urine Chloride Urine Total Protein 10/13/16 10/13/16 10/13/16 10:44 11:22 12:20 WBC RBC Hgb Hct MCV RDW Plt Count Lymph % (Auto) [place] % (Auto) [place] # Seg Neutrophils % Seg Neuts % (Manual) Lymphocytes % (Manual) Monocytes % (Manual) Seg Neutrophils # Seg Neutrophils # Man Lymphocytes # (Manual) Monocytes # (Manual) PT INR APTT POC ABG pH POC ABG pCO2 POC ABG pO2 Sodium Potassium 5.4 H Chloride Carbon Dioxide 14 L BUN 72 H Creatinine 2.6 H Glucose 383 H POC Glucose 391 H 313 H Calcium 8.2 L Phosphorus Magnesium AST C-Reactive Protein Total Protein Albumin Lipase Urine WBC (Auto) Urine Chloride Urine Total Protein 10/13/16 10/13/16 10/13/16 13:32 14:44 15:57 WBC RBC Hgb Hct MCV RDW Plt Count Lymph % (Auto) [place] % (Auto) [place] # Seg Neutrophils % Seg Neuts % (Manual) Lymphocytes % (Manual) Monocytes % (Manual) Seg Neutrophils # Seg Neutrophils # Man Lymphocytes # (Manual) Monocytes # (Manual) PT INR APTT POC ABG pH POC ABG pCO2 POC ABG pO2 Sodium Potassium Chloride Carbon Dioxide BUN Creatinine Glucose POC Glucose 296 H 210 H 190 H Calcium Phosphorus Magnesium AST C-Reactive Protein Total Protein Albumin Lipase Urine WBC (Auto) Urine Chloride Urine Total Protein 10/13/16 10/13/16 10/13/16 16:14 16:14 17:17 WBC RBC Hgb Hct MCV RDW Plt Count Lymph % (Auto) [place] % (Auto) [place] # Seg Neutrophils % Seg Neuts % (Manual) Lymphocytes % (Manual) Monocytes % (Manual) Seg Neutrophils # Seg Neutrophils # Man Lymphocytes # (Manual) Monocytes # (Manual) PT INR APTT POC ABG pH POC ABG pCO2 POC ABG pO2 Sodium Potassium Chloride Carbon Dioxide 17 L BUN 58 H Creatinine 1.8 H Glucose 172 H POC Glucose 193 H Calcium 7.7 L Phosphorus Magnesium AST C-Reactive Protein 10.50 H Total Protein Albumin Lipase Urine WBC (Auto) Urine Chloride Urine Total Protein 10/13/16 10/13/16 10/13/16 17:55 18:32 19:41 WBC RBC Hgb Hct MCV RDW Plt Count Lymph % (Auto) [place] % (Auto) [place] # Seg Neutrophils % Seg Neuts % (Manual) Lymphocytes % (Manual) Monocytes % (Manual) Seg Neutrophils # Seg Neutrophils # Man Lymphocytes # (Manual) Monocytes # (Manual) PT INR APTT POC ABG pH POC ABG pCO2 30.6 L POC ABG pO2 218 H Sodium Potassium Chloride Carbon Dioxide BUN Creatinine Glucose POC Glucose 192 H 177 H Calcium Phosphorus Magnesium AST C-Reactive Protein Total Protein Albumin Lipase Urine WBC (Auto) Urine Chloride Urine Total Protein 10/13/16 10/13/16 10/13/16 20:54 22:07 23:13 WBC RBC Hgb Hct MCV RDW Plt Count Lymph % (Auto) [place] % (Auto) [place] # Seg Neutrophils % Seg Neuts % (Manual) Lymphocytes % (Manual) Monocytes % (Manual) Seg Neutrophils # Seg Neutrophils # Man Lymphocytes # (Manual) Monocytes # (Manual) PT INR APTT POC ABG pH POC ABG pCO2 POC ABG pO2 Sodium Potassium Chloride Carbon Dioxide BUN Creatinine Glucose POC Glucose 178 H 160 H 168 H Calcium Phosphorus Magnesium AST C-Reactive Protein Total Protein Albumin Lipase Urine WBC (Auto) Urine Chloride Urine Total Protein 10/13/16 10/13/16 10/14/16 23:25 Unknown 00:21 WBC RBC Hgb Hct MCV RDW Plt Count Lymph % (Auto) [place] % (Auto) [place] # Seg Neutrophils % Seg Neuts % (Manual) Lymphocytes % (Manual) Monocytes % (Manual) Seg Neutrophils # Seg Neutrophils # Man Lymphocytes # (Manual) Monocytes # (Manual) PT INR APTT POC ABG pH POC ABG pCO2 POC ABG pO2 Sodium 148 H Potassium Chloride 114.6 H Carbon Dioxide 17 L BUN 56 H Creatinine 1.6 H Glucose 151 H POC Glucose 171 H Calcium 7.8 L Phosphorus Magnesium AST C-Reactive Protein Total Protein Albumin Lipase Urine WBC (Auto) Urine Chloride 10.0 L Urine Total Protein < 4 L 10/14/16 10/14/16 10/14/16 01:22 02:29 03:30 WBC RBC Hgb Hct MCV RDW Plt Count Lymph % (Auto) [place] % (Auto) [place] # Seg Neutrophils % Seg Neuts % (Manual) Lymphocytes % (Manual) Monocytes % (Manual) Seg Neutrophils # Seg Neutrophils # Man Lymphocytes # (Manual) Monocytes # (Manual) PT INR APTT POC ABG pH POC ABG pCO2 POC ABG pO2 Sodium Potassium Chloride Carbon Dioxide BUN Creatinine Glucose POC Glucose 144 H 136 H 143 H Calcium Phosphorus Magnesium AST C-Reactive Protein Total Protein Albumin Lipase Urine WBC (Auto) Urine Chloride Urine Total Protein 10/14/16 10/14/16 10/14/16 04:28 05:16 05:44 WBC RBC Hgb Hct MCV RDW Plt Count Lymph % (Auto) [place] % (Auto) [place] # Seg Neutrophils % Seg Neuts % (Manual) Lymphocytes % (Manual) Monocytes % (Manual) Seg Neutrophils # Seg Neutrophils # Man Lymphocytes # (Manual) Monocytes # (Manual) PT INR APTT POC ABG pH POC ABG pCO2 28.2 L POC ABG pO2 125 H Sodium Potassium Chloride Carbon Dioxide BUN Creatinine Glucose POC Glucose 133 H 160 H Calcium Phosphorus Magnesium AST C-Reactive Protein Total Protein Albumin Lipase Urine WBC (Auto) Urine Chloride Urine Total Protein 10/14/16 10/14/16 10/14/16 06:12 06:45 07:03 WBC RBC Hgb Hct MCV RDW Plt Count Lymph % (Auto) [place] % (Auto) [place] # Seg Neutrophils % Seg Neuts % (Manual) Lymphocytes % (Manual) Monocytes % (Manual) Seg Neutrophils # Seg Neutrophils # Man Lymphocytes # (Manual) Monocytes # (Manual) PT INR APTT POC ABG pH POC ABG pCO2 POC ABG pO2 Sodium 149 H Potassium Chloride 115.4 H Carbon Dioxide 17 L BUN 45 H Creatinine 1.5 H Glucose 139 H POC Glucose 149 H Calcium 7.4 L Phosphorus 1.0 L D Magnesium AST C-Reactive Protein Total Protein Albumin Lipase Urine WBC (Auto) Urine Chloride Urine Total Protein 10/14/16 10/14/16 10/14/16 07:03 08:02 09:16 WBC RBC Hgb Hct MCV RDW Plt Count Lymph % (Auto) [place] % (Auto) [place] # Seg Neutrophils % Seg Neuts % (Manual) Lymphocytes % (Manual) Monocytes % (Manual) Seg Neutrophils # Seg Neutrophils # Man Lymphocytes # (Manual) Monocytes # (Manual) PT INR APTT POC ABG pH POC ABG pCO2 POC ABG pO2 Sodium Potassium Chloride Carbon Dioxide BUN Creatinine Glucose POC Glucose 156 H 158 H Calcium Phosphorus Magnesium AST C-Reactive Protein Total Protein Albumin Lipase 738 H Urine WBC (Auto) Urine Chloride Urine Total Protein 10/14/16 10/14/16 10/14/16 10:26 11:03 11:57 WBC RBC Hgb Hct MCV RDW Plt Count Lymph % (Auto) [place] % (Auto) [place] # Seg Neutrophils % Seg Neuts % (Manual) Lymphocytes % (Manual) Monocytes % (Manual) Seg Neutrophils # Seg Neutrophils # Man Lymphocytes # (Manual) Monocytes # (Manual) PT INR APTT POC ABG pH 7.198 L POC ABG pCO2 47.5 H POC ABG pO2 Sodium Potassium Chloride Carbon Dioxide BUN Creatinine Glucose POC Glucose 174 H 189 H Calcium Phosphorus Magnesium AST C-Reactive Protein Total Protein Albumin Lipase Urine WBC (Auto) Urine Chloride Urine Total Protein 10/14/16 10/14/16 10/14/16 12:02 12:02 13:11 WBC 13.4 H RBC 3.60 L Hgb Hct MCV 98 H D RDW 13.1 L Plt Count Lymph % (Auto) [place] % (Auto) [place] # Seg Neutrophils % Seg Neuts % (Manual) Lymphocytes % (Manual) Monocytes % (Manual) Seg Neutrophils # Seg Neutrophils # Man Lymphocytes # (Manual) Monocytes # (Manual) PT INR APTT POC ABG pH POC ABG pCO2 POC ABG pO2 Sodium Potassium Chloride 110.7 H Carbon Dioxide 19 L BUN 38 H Creatinine 1.4 H Glucose 182 H POC Glucose 173 H Calcium 7.5 L Phosphorus Magnesium AST C-Reactive Protein Total Protein Albumin Lipase Urine WBC (Auto) Urine Chloride Urine Total Protein 10/14/16 10/14/16 10/14/16 14:24 15:31 16:36 WBC RBC Hgb Hct MCV RDW Plt Count Lymph % (Auto) [place] % (Auto) [place] # Seg Neutrophils % Seg Neuts % (Manual) Lymphocytes % (Manual) Monocytes % (Manual) Seg Neutrophils # Seg Neutrophils # Man Lymphocytes # (Manual) Monocytes # (Manual) PT INR APTT POC ABG pH POC ABG pCO2 POC ABG pO2 Sodium Potassium Chloride Carbon Dioxide BUN Creatinine Glucose POC Glucose 123 H 124 H 156 H Calcium Phosphorus Magnesium AST C-Reactive Protein Total Protein Albumin Lipase Urine WBC (Auto) Urine Chloride Urine Total Protein 10/14/16 10/14/16 10/14/16 17:43 19:00 20:08 WBC RBC Hgb Hct MCV RDW Plt Count Lymph % (Auto) [place] % (Auto) [place] # Seg Neutrophils % Seg Neuts % (Manual) Lymphocytes % (Manual) Monocytes % (Manual) Seg Neutrophils # Seg Neutrophils # Man Lymphocytes # (Manual) Monocytes # (Manual) PT INR APTT POC ABG pH POC ABG pCO2 POC ABG pO2 Sodium Potassium Chloride Carbon Dioxide BUN Creatinine Glucose POC Glucose 154 H 123 H 138 H Calcium Phosphorus Magnesium AST C-Reactive Protein Total Protein Albumin Lipase Urine WBC (Auto) Urine Chloride Urine Total Protein 10/14/16 10/14/16 10/14/16 21:17 22:25 23:37 WBC RBC Hgb Hct MCV RDW Plt Count Lymph % (Auto) [place] % (Auto) [place] # Seg Neutrophils % Seg Neuts % (Manual) Lymphocytes % (Manual) Monocytes % (Manual) Seg Neutrophils # Seg Neutrophils # Man Lymphocytes # (Manual) Monocytes # (Manual) PT INR APTT POC ABG pH POC ABG pCO2 POC ABG pO2 Sodium Potassium Chloride Carbon Dioxide BUN Creatinine Glucose POC Glucose 148 H 132 H 137 H Calcium Phosphorus Magnesium AST C-Reactive Protein Total Protein Albumin Lipase Urine WBC (Auto) Urine Chloride Urine Total Protein 10/15/16 10/15/16 10/15/16 00:49 01:53 03:06 WBC RBC Hgb Hct MCV RDW Plt Count Lymph % (Auto) [place] % (Auto) [place] # Seg Neutrophils % Seg Neuts % (Manual) Lymphocytes % (Manual) Monocytes % (Manual) Seg Neutrophils # Seg Neutrophils # Man Lymphocytes # (Manual) Monocytes # (Manual) PT INR APTT POC ABG pH POC ABG pCO2 POC ABG pO2 Sodium Potassium Chloride Carbon Dioxide BUN Creatinine Glucose POC Glucose 132 H 134 H 134 H Calcium Phosphorus Magnesium AST C-Reactive Protein Total Protein Albumin Lipase Urine WBC (Auto) Urine Chloride Urine Total Protein 10/15/16 10/15/16 10/15/16 04:40 04:46 06:21 WBC RBC Hgb Hct MCV RDW Plt Count Lymph % (Auto) [place] % (Auto) [place] # Seg Neutrophils % Seg Neuts % (Manual) Lymphocytes % (Manual) Monocytes % (Manual) Seg Neutrophils # Seg Neutrophils # Man Lymphocytes # (Manual) Monocytes # (Manual) PT INR APTT POC ABG pH POC ABG pCO2 30.7 L POC ABG pO2 108 H Sodium Potassium Chloride 109.0 H Carbon Dioxide 17 L BUN 27 H Creatinine Glucose 124 H POC Glucose 160 H Calcium 7.5 L Phosphorus Magnesium AST 79 H C-Reactive Protein Total Protein 5.5 L Albumin 3.0 L Lipase Urine WBC (Auto) Urine Chloride Urine Total Protein 10/15/16 10/15/16 10/15/16 07:12 08:01 09:03 WBC RBC Hgb Hct MCV RDW Plt Count Lymph % (Auto) [place] % (Auto) [place] # Seg Neutrophils % Seg Neuts % (Manual) Lymphocytes % (Manual) Monocytes % (Manual) Seg Neutrophils # Seg Neutrophils # Man Lymphocytes # (Manual) Monocytes # (Manual) PT INR APTT POC ABG pH POC ABG pCO2 POC ABG pO2 Sodium Potassium Chloride Carbon Dioxide BUN Creatinine Glucose POC Glucose 179 H 187 H 165 H Calcium Phosphorus Magnesium AST C-Reactive Protein Total Protein Albumin Lipase Urine WBC (Auto) Urine Chloride Urine Total Protein 10/15/16 10/15/16 10/15/16 10:06 10:06 10:07 WBC 12.1 H RBC 3.01 L Hgb 9.7 L Hct 29.6 L MCV 98 H RDW Plt Count 129 L Lymph % (Auto) [place] % (Auto) [place] # Seg Neutrophils % Seg Neuts % (Manual) Lymphocytes % (Manual) Monocytes % (Manual) Seg Neutrophils # Seg Neutrophils # Man Lymphocytes # (Manual) Monocytes # (Manual) PT INR APTT POC ABG pH POC ABG pCO2 POC ABG pO2 Sodium Potassium 3.2 L D Chloride 109.6 H Carbon Dioxide 18 L BUN 22 H Creatinine Glucose 127 H POC Glucose 147 H Calcium 7.0 L Phosphorus Magnesium AST C-Reactive Protein Total Protein Albumin Lipase Urine WBC (Auto) Urine Chloride Urine Total Protein 10/15/16 10/15/16 10/15/16 11:05 11:06 11:57 WBC RBC Hgb Hct MCV RDW Plt Count Lymph % (Auto) [place] % (Auto) [place] # Seg Neutrophils % Seg Neuts % (Manual) Lymphocytes % (Manual) Monocytes % (Manual) Seg Neutrophils # Seg Neutrophils # Man Lymphocytes # (Manual) Monocytes # (Manual) PT INR APTT POC ABG pH 7.305 L POC ABG pCO2 POC ABG pO2 Sodium Potassium Chloride Carbon Dioxide BUN Creatinine Glucose POC Glucose 145 H Calcium Phosphorus Magnesium AST C-Reactive Protein Total Protein Albumin Lipase Urine WBC (Auto) 7.0 H Urine Chloride Urine Total Protein 0210/15/16 10/15/16 12:04 13:59 15:24 WBC RBC Hgb Hct MCV RDW Plt Count Lymph % (Auto) [place] % (Auto) [place] # Seg Neutrophils % Seg Neuts % (Manual) Lymphocytes % (Manual) Monocytes % (Manual) Seg Neutrophils # Seg Neutrophils # Man Lymphocytes # (Manual) Monocytes # (Manual) PT INR APTT POC ABG pH POC ABG pCO2 POC ABG pO2 Sodium Potassium Chloride Carbon Dioxide BUN Creatinine Glucose POC Glucose 123 H 147 H 153 H Calcium Phosphorus Magnesium AST C-Reactive Protein Total Protein Albumin Lipase Urine WBC (Auto) Urine Chloride Urine Total Protein 10/15/16 10/15/16 10/15/16 16:30 17:34 18:30 WBC RBC Hgb Hct MCV RDW Plt Count Lymph % (Auto) [place] % (Auto) [place] # Seg Neutrophils % Seg Neuts % (Manual) Lymphocytes % (Manual) Monocytes % (Manual) Seg Neutrophils # Seg Neutrophils # Man Lymphocytes # (Manual) Monocytes # (Manual) PT INR APTT POC ABG pH POC ABG pCO2 POC ABG pO2 Sodium Potassium Chloride Carbon Dioxide BUN Creatinine Glucose POC Glucose 223 H 236 H 164 H Calcium Phosphorus Magnesium AST C-Reactive Protein Total Protein Albumin Lipase Urine WBC (Auto) Urine Chloride Urine Total Protein 10/15/16 10/15/16 10/15/16 19:14 20:31 21:23 WBC RBC Hgb Hct MCV RDW Plt Count Lymph % (Auto) [place] % (Auto) [place] # Seg Neutrophils % Seg Neuts % (Manual) Lymphocytes % (Manual) Monocytes % (Manual) Seg Neutrophils # Seg Neutrophils # Man Lymphocytes # (Manual) Monocytes # (Manual) PT INR APTT POC ABG pH POC ABG pCO2 POC ABG pO2 Sodium Potassium Chloride Carbon Dioxide BUN Creatinine Glucose POC Glucose 138 H 158 H 158 H Calcium Phosphorus Magnesium AST C-Reactive Protein Total Protein Albumin Lipase Urine WBC (Auto) Urine Chloride Urine Total Protein 10/15/16 10/15/16 10/16/16 22:04 22:57 00:11 WBC RBC Hgb Hct MCV RDW Plt Count Lymph % (Auto) [place] % (Auto) [place] # Seg Neutrophils % Seg Neuts % (Manual) Lymphocytes % (Manual) Monocytes % (Manual) Seg Neutrophils # Seg Neutrophils # Man Lymphocytes # (Manual) Monocytes # (Manual) PT INR APTT POC ABG pH POC ABG pCO2 POC ABG pO2 Sodium Potassium Chloride Carbon Dioxide BUN Creatinine Glucose POC Glucose 168 H 213 H 166 H Calcium Phosphorus Magnesium AST C-Reactive Protein Total Protein Albumin Lipase Urine WBC (Auto) Urine Chloride Urine Total Protein 10/16/16 10/16/16 10/16/16 01:16 02:32 03:38 WBC RBC Hgb Hct MCV RDW Plt Count Lymph % (Auto) [place] % (Auto) [place] # Seg Neutrophils % Seg Neuts % (Manual) Lymphocytes % (Manual) Monocytes % (Manual) Seg Neutrophils # Seg Neutrophils # Man Lymphocytes # (Manual) Monocytes # (Manual) PT INR APTT POC ABG pH POC ABG pCO2 POC ABG pO2 Sodium Potassium Chloride Carbon Dioxide BUN Creatinine Glucose POC Glucose 171 H 164 H 147 H Calcium Phosphorus Magnesium AST C-Reactive Protein Total Protein Albumin Lipase Urine WBC (Auto) Urine Chloride Urine Total Protein 10/16/16 10/16/16 10/16/16 04:14 04:14 04:49 WBC RBC Hgb Hct MCV RDW Plt Count Lymph % (Auto) [place] % (Auto) [place] # Seg Neutrophils % Seg Neuts % (Manual) Lymphocytes % (Manual) Monocytes % (Manual) Seg Neutrophils # Seg Neutrophils # Man Lymphocytes # (Manual) Monocytes # (Manual) PT INR APTT POC ABG pH POC ABG pCO2 POC ABG pO2 Sodium 147 H Potassium Chloride 110.9 H Carbon Dioxide 19 L BUN Creatinine Glucose 139 H POC Glucose 144 H Calcium 7.3 L Phosphorus 2.3 L Magnesium AST C-Reactive Protein Total Protein Albumin Lipase 143 H Urine WBC (Auto) Urine Chloride Urine Total Protein 10/16/16 10/16/16 10/16/16 05:03 05:41 05:58 WBC 16.5 H RBC 3.36 L Hgb Hct MCV 98 H RDW 13.1 L Plt Count Lymph % (Auto) 8.5 L [place] % (Auto) 7.6 H [place] # 1.3 H Seg Neutrophils % 83.3 H Seg Neuts % (Manual) Lymphocytes % (Manual) Monocytes % (Manual) Seg Neutrophils # 13.8 H Seg Neutrophils # Man Lymphocytes # (Manual) Monocytes # (Manual) PT INR APTT POC ABG pH POC ABG pCO2 30.7 L POC ABG pO2 128 H Sodium Potassium Chloride Carbon Dioxide BUN Creatinine Glucose POC Glucose 131 H Calcium Phosphorus Magnesium AST C-Reactive Protein Total Protein Albumin Lipase Urine WBC (Auto) Urine Chloride Urine Total Protein 10/16/16 10/16/16 10/16/16 06:32 09:27 09:35 WBC RBC Hgb Hct MCV RDW Plt Count Lymph % (Auto) [place] % (Auto) [place] # Seg Neutrophils % Seg Neuts % (Manual) Lymphocytes % (Manual) Monocytes % (Manual) Seg Neutrophils # Seg Neutrophils # Man Lymphocytes # (Manual) Monocytes # (Manual) PT INR APTT POC ABG pH POC ABG pCO2 32.8 L POC ABG pO2 137 H Sodium Potassium Chloride Carbon Dioxide BUN Creatinine Glucose POC Glucose 121 H 150 H Calcium Phosphorus Magnesium AST C-Reactive Protein Total Protein Albumin Lipase Urine WBC (Auto) Urine Chloride Urine Total Protein 10/16/16 10/16/16 10/16/16 10:47 13:27 14:24 WBC RBC Hgb Hct MCV RDW Plt Count Lymph % (Auto) [place] % (Auto) [place] # Seg Neutrophils % Seg Neuts % (Manual) Lymphocytes % (Manual) Monocytes % (Manual) Seg Neutrophils # Seg Neutrophils # Man Lymphocytes # (Manual) Monocytes # (Manual) PT INR APTT POC ABG pH POC ABG pCO2 POC ABG pO2 Sodium Potassium Chloride Carbon Dioxide BUN Creatinine Glucose POC Glucose 184 H 171 H 174 H Calcium Phosphorus Magnesium AST C-Reactive Protein Total Protein Albumin Lipase Urine WBC (Auto) Urine Chloride Urine Total Protein 10/16/16 10/16/16 10/16/16 15:48 16:26 18:17 WBC RBC Hgb Hct MCV RDW Plt Count Lymph % (Auto) [place] % (Auto) [place] # Seg Neutrophils % Seg Neuts % (Manual) Lymphocytes % (Manual) Monocytes % (Manual) Seg Neutrophils # Seg Neutrophils # Man Lymphocytes # (Manual) Monocytes # (Manual) PT INR APTT POC ABG pH POC ABG pCO2 POC ABG pO2 Sodium Potassium Chloride Carbon Dioxide BUN Creatinine Glucose POC Glucose 205 H 204 H 234 H Calcium Phosphorus Magnesium AST C-Reactive Protein Total Protein Albumin Lipase Urine WBC (Auto) Urine Chloride Urine Total Protein 10/16/16 10/16/16 10/16/16 19:40 20:33 21:36 WBC RBC Hgb Hct MCV RDW Plt Count Lymph % (Auto) [place] % (Auto) [place] # Seg Neutrophils % Seg Neuts % (Manual) Lymphocytes % (Manual) Monocytes % (Manual) Seg Neutrophils # Seg Neutrophils # Man Lymphocytes # (Manual) Monocytes # (Manual) PT INR APTT POC ABG pH POC ABG pCO2 POC ABG pO2 Sodium Potassium Chloride Carbon Dioxide BUN Creatinine Glucose POC Glucose 167 H 153 H 158 H Calcium Phosphorus Magnesium AST C-Reactive Protein Total Protein Albumin Lipase Urine WBC (Auto) Urine Chloride Urine Total Protein 10/16/16 10/16/16 10/17/16 22:54 23:48 00:47 WBC RBC Hgb Hct MCV RDW Plt Count Lymph % (Auto) [place] % (Auto) [place] # Seg Neutrophils % Seg Neuts % (Manual) Lymphocytes % (Manual) Monocytes % (Manual) Seg Neutrophils # Seg Neutrophils # Man Lymphocytes # (Manual) Monocytes # (Manual) PT INR APTT POC ABG pH POC ABG pCO2 POC ABG pO2 Sodium Potassium Chloride Carbon Dioxide BUN Creatinine Glucose POC Glucose 180 H 207 H 196 H Calcium Phosphorus Magnesium AST C-Reactive Protein Total Protein Albumin Lipase Urine WBC (Auto) Urine Chloride Urine Total Protein 10/17/16 10/17/16 10/17/16 01:57 02:49 03:50 WBC RBC Hgb Hct MCV RDW Plt Count Lymph % (Auto) [place] % (Auto) [place] # Seg Neutrophils % Seg Neuts % (Manual) Lymphocytes % (Manual) Monocytes % (Manual) Seg Neutrophils # Seg Neutrophils # Man Lymphocytes # (Manual) Monocytes # (Manual) PT INR APTT POC ABG pH POC ABG pCO2 POC ABG pO2 Sodium Potassium Chloride Carbon Dioxide BUN Creatinine Glucose POC Glucose 180 H 151 H 106 H Calcium Phosphorus Magnesium AST C-Reactive Protein Total Protein Albumin Lipase Urine WBC (Auto) Urine Chloride Urine Total Protein 10/17/16 10/17/16 10/17/16 04:59 06:03 06:35 WBC RBC Hgb Hct MCV RDW Plt Count Lymph % (Auto) [place] % (Auto) [place] # Seg Neutrophils % Seg Neuts % (Manual) Lymphocytes % (Manual) Monocytes % (Manual) Seg Neutrophils # Seg Neutrophils # Man Lymphocytes # (Manual) Monocytes # (Manual) PT INR APTT POC ABG pH 7.453 H POC ABG pCO2 30.1 L POC ABG pO2 111 H Sodium Potassium Chloride Carbon Dioxide BUN Creatinine Glucose POC Glucose 145 H 157 H Calcium Phosphorus Magnesium AST C-Reactive Protein Total Protein Albumin Lipase Urine WBC (Auto) Urine Chloride Urine Total Protein 10/17/16 10/17/16 10/17/16 07:08 07:11 08:01 WBC RBC Hgb Hct MCV RDW Plt Count Lymph % (Auto) [place] % (Auto) [place] # Seg Neutrophils % Seg Neuts % (Manual) Lymphocytes % (Manual) Monocytes % (Manual) Seg Neutrophils # Seg Neutrophils # Man Lymphocytes # (Manual) Monocytes # (Manual) PT INR APTT POC ABG pH POC ABG pCO2 POC ABG pO2 Sodium 147 H Potassium Chloride 113.8 H Carbon Dioxide 19 L BUN Creatinine Glucose 136 H POC Glucose 136 H 152 H Calcium 7.7 L Phosphorus Magnesium AST C-Reactive Protein Total Protein Albumin Lipase Urine WBC (Auto) Urine Chloride Urine Total Protein 10/17/16 10/17/16 10/17/16 08:23 09:17 09:53 WBC 18.1 H RBC 3.01 L Hgb 9.7 L Hct 29.4 L MCV 98 H RDW Plt Count 116 L Lymph % (Auto) [place] % (Auto) [place] # Seg Neutrophils % Seg Neuts % (Manual) 77.0 H Lymphocytes % (Manual) 4.0 L Monocytes % (Manual) 12.0 H Seg Neutrophils # Seg Neutrophils # Man 13.9 H Lymphocytes # (Manual) 0.7 L Monocytes # (Manual) 2.2 H PT INR APTT POC ABG pH POC ABG pCO2 POC ABG pO2 Sodium Potassium Chloride Carbon Dioxide BUN Creatinine Glucose POC Glucose 148 H 137 H Calcium Phosphorus Magnesium AST C-Reactive Protein Total Protein Albumin Lipase Urine WBC (Auto) Urine Chloride Urine Total Protein 10/17/16 10/17/16 10/17/16 11:43 16:07 17:42 WBC RBC Hgb Hct MCV RDW Plt Count Lymph % (Auto) [place] % (Auto) [place] # Seg Neutrophils % Seg Neuts % (Manual) Lymphocytes % (Manual) Monocytes % (Manual) Seg Neutrophils # Seg Neutrophils # Man Lymphocytes # (Manual) Monocytes # (Manual) PT 16.4 H INR 1.33 H APTT 38.8 H POC ABG pH POC ABG pCO2 POC ABG pO2 Sodium Potassium Chloride Carbon Dioxide BUN Creatinine Glucose POC Glucose 179 H 153 H Calcium Phosphorus Magnesium AST C-Reactive Protein Total Protein Albumin Lipase Urine WBC (Auto) Urine Chloride Urine Total Protein Allied health notes reviewed: RT
[2016-10-17] MEDS: MONISTAT VG SCH (22:03)
[2016-10-18] MEDS: HEPARIN/ 0.45% NACL-25,000 UNIT/500 ML 25,000 UNITS/500 ML BAG IV SCH ×2 (00:30→10:51)
[2016-10-18] MEDS: NOVOLOG SUB-Q SCH ×4 (00:33→17:57)
[2016-10-18] MEDS: LOPRESSOR IV SCH ×4 (00:38→18:05)
[2016-10-18 05:07] LABS: ISTAT Base Excess -2; ISTAT HCO3 21.6; ISTAT PCO2 30.8 (35-45); ISTAT PH 7.454 (7.35-7.45); ISTAT PO2 115 (80-105); ISTAT SO2 99; ISTAT TCO2 23
[2016-10-18] MEDS: D50W (25GM) IV PRN (05:49)
[2016-10-18] MEDS: VERSED/NS 100MG/100ML 100 MG/100 ML BAG IV SCH (07:21)
[2016-10-18 07:43] LABS: Hemoglobin 8.4 gm/dl (10.1-14.3); Mean Corpuscular HGB Conc 32 % (30-34); Mean Corpuscular Hemoglobin 32 pg (28-32); Mean Corpuscular Volume 100 fl (79-97); Platelet Count 227 K/mm3 (140-440); Red Blood Count 2.62 M/mm3 (3.65-5.03); Red Cell Distribution Width 13.3 % (13.2-15.2)
[2016-10-18 07:47] LABS: White Blood Count 20.5 K/mm3 (4.5-11.0)
[2016-10-18 07:50] LABS: BUN/Creatinine Ratio 9.23; Chloride 110.6 mmol/L (98-107); Phosphorous 3.7 mg/dL (2.5-4.5)
[2016-10-18 08:25] LABS: Basophils % (Manual) 0 % (0.0-1.8); Blastocytes % (Manual) 0 %; Eosinophils % (Manual) 0 % (0.0-4.3)
[2016-10-18 08:26] LABS: Anisocytosis 1+; Diff Status Complete; Large Platelets 1+; Polychromasia Few; Stomatocytes Few
--- NOTE | 2016-10-18 08:41 | XRay Report ---
AP CHEST :10/18/16 01:59 CLINICAL: Intubated.Follow up respiratory failure. COMPARISON:Previous day. FINDINGS: The endotracheal tube is in satisfactory position. The heart is normal size. Mild central vascular congestion. No airspace disease or pleural effusion. No pneumothorax. IMPRESSION: No change.No congestive heart failure or pneumonia.
--- NOTE | 2016-10-18 10:10 | Progress Note ---
Assessment and Plan (1) Acute on chronic renal failure Current Visit: Yes Status: Acute Plan to address problem: overall stable kidney function good UOP Obtain daily weights Renally dose medications Strict I/O Will continue to monitor renal function closely (2) DKA (diabetic ketoacidoses) Current Visit: Yes Status: Acute Qualifiers: Diabetes mellitus type: D Diabetes mellitus complication detail: D Plan to address problem: resolved (3) Respiratory failure Current Visit: Yes Status: Acute Qualifiers: Chronicity: C Respiratory failure complication: R Plan to address problem: Intubated (4) Acidosis Current Visit: Yes Status: Acute Plan to address problem: resolved Subjective Date of service: 10/18/16 Principal diagnosis: respiratory failure on mechanical ventilatory support, DKA Interval history: patient is intubated, no family at bedside Objective - Vital Signs Vital signs: Vital Signs - 12hr 10/17/16 10/17/16 10/17/16 22:31 23:00 23:30 Temperature Pulse Rate 107 H 106 H Respiratory 21 20 Rate Blood Pressure 115/53 133/61 144/66 O2 Sat by Pulse 100 100 100 Oximetry 10/17/16 10/18/16 10/18/16 23:36 00:00 00:30 Temperature 100.4 F H Pulse Rate 103 H 99 H 106 H Respiratory 20 13 Rate Blood Pressure 144/66 133/64 145/69 O2 Sat by Pulse 100 96 100 Oximetry 10/18/16 10/18/16 10/18/16 00:38 01:00 01:30 Temperature Pulse Rate 108 H 88 88 Respiratory 14 20 Rate Blood Pressure 145/68 126/57 128/58 O2 Sat by Pulse 100 100 Oximetry 10/18/16 10/18/16 10/18/16 02:00 02:30 03:00 Temperature Pulse Rate 93 H 99 H 105 H Respiratory 15 13 20 Rate Blood Pressure 136/65 147/63 144/70 O2 Sat by Pulse 100 100 100 Oximetry 10/18/16 10/18/16 10/18/16 03:30 03:57 04:00 Temperature 100.6 F H Pulse Rate 102 H 98 H Respiratory 19 20 Rate Blood Pressure 145/65 138/68 O2 Sat by Pulse 100 99 100 Oximetry 10/18/16 10/18/16 10/18/16 04:09 04:30 05:00 Temperature Pulse Rate 102 H 106 H 114 H Respiratory 21 20 Rate Blood Pressure 138/68 150/69 156/74 O2 Sat by Pulse 100 100 100 Oximetry 10/18/16 10/18/16 10/18/16 05:30 05:55 06:00 Temperature Pulse Rate 106 H 95 H 86 Respiratory 11 L 20 Rate Blood Pressure 147/72 147/72 131/63 O2 Sat by Pulse 100 100 Oximetry 10/18/16 10/18/16 10/18/16 06:30 07:01 07:30 Temperature Pulse Rate 90 92 H 90 Respiratory 20 20 15 Rate Blood Pressure 138/69 160/61 137/70 O2 Sat by Pulse 100 100 100 Oximetry 10/18/16 10/18/16 10/18/16 07:52 08:00 08:30 Temperature 100.3 F H Pulse Rate 84 85 Respiratory 20 20 Rate Blood Pressure 119/55 133/58 O2 Sat by Pulse 100 100 Oximetry 10/18/16 10/18/16 10/18/16 09:00 09:10 09:19 Temperature Pulse Rate 101 H 111 H Respiratory 19 34 H Rate Blood Pressure 154/101 154/101 O2 Sat by Pulse 100 100 Oximetry - General Appearance General appearance: intubated EENT: ATNC, PERRL, mucous membranes dry Neck: no JVD Respiratory: Present: Clear to Ascultation Cardiology: regular, S1S2 Gastrointestinal: normoactive bowel sounds, no tenderness, no distended Integumentary: no rash, warm and dry Neurologic: other (does not follow commands) Musculoskeletal: deferred Psychiatric: other (does not answer questions) - Lab 10/18/16 06:46 10/18/16 06:46 Most recent lab results Calcium 8.0 mg/dL (8.4-10.2) L 10/18/16 06:46 Phosphorus 3.7 mg/dL (2.5-4.5) D 10/18/16 06:46 Magnesium 1.7 mg/dL (1.7-2.3) 10/16/16 04:14 Urine Creatinine < 4.2 mg/dL (0.1-20.0) 10/13/16 Unknown Urine Sodium 10 mEq/L 10/13/16 Unknown Urine Total Protein < 4 mg/dL (5-11.8) L 10/13/16 Unknown
[2016-10-18] MEDS: PEPCID IV SCH (10:40)
[2016-10-18] MEDS: LEVAQUIN 500MG/100ML 500 MG/100 ML BAG IV SCH (10:49)
[2016-10-18] MEDS: DIFLUCAN PO SCH (10:50)
[2016-10-18] MEDS ORDERED: VANCOMYCIN VIAL 1,750 MG in NACL 0.9% 500 ML 500 ML IV ONE (12:00)
[2016-10-18] MEDS ORDERED: VANCOMYCIN PHARMACY TO DOSE IV SCH (12:00)
--- NOTE | 2016-10-18 12:53 | Progress Note ---
Assessment and Plan - Patient Problems (1) Acute respiratory failure with hypercapnia Current Visit: Yes Status: Acute Plan to address problem: Continue with mechanical ventilatory support. VAP bundle Critical bundle addressed Agitation management Adjust ventilator settings for better gas-exchange VTYE/Stress ulcer prophylaxis SAT/SBT Glycemic control (2) DKA (diabetic ketoacidoses) Current Visit: Yes Status: Acute Qualifiers: Diabetes mellitus type: D Diabetes mellitus complication detail: D Plan to address problem: DKA management per protocol (3) Altered mental status Current Visit: Yes Status: Acute Qualifiers: Altered mental status type: A Coma depth: C Coma timing: C (4) Acidosis Current Visit: Yes Status: Acute (5) Acute on chronic renal failure Current Visit: Yes Status: Acute Plan to address problem: Monitor renal function and electrolytes. Avoid nephrotoxic agents, adjust all medications for creatinine clearance (6) Sepsis Current Visit: Yes Status: Acute Qualifiers: Sepsis type: S Plan to address problem: Blood cultures, urine cultures Broaden antibiotic therapy while awaiting culture results especially with worsening acidosis. Remains hemodynamically stable. Adjusted antibiotic therapy. If ongoing leukocytosis and fevers in the next 24 hours will get an ID consult. (7) Cold foot Current Visit: Yes Status: Acute Qualifiers: Laterality: L Plan to address problem: Heparin infusion Subjective Date of service: 10/18/16 Principal diagnosis: respiratory failure on mechanical ventilatory support, DKA Interval history: patient seen and examined. Vitals, labs, medications, chart reviewed Having fevers, with on-going encephalopathy and agitation Initiated on heparin infusion for areterial occlusion of right SFA Objective - Exam Narrative Exam: GENERAL: -[place] female lying on bed appeared to be in no discomfort. Patient is intubated HEENT: Normocephalic. Atraumatic. No conjunctival congestion or icterus. Patient has dry mucous membranes. NECK: Supple. Trachea midline. ETT in place CHEST/LUNGS: Clear to auscultated bilaterally, breathing nonl abored. No wheezes crackles or rhonchi. HEART/CARDIOVASCULAR: Regular in rate and rhythm. S1 and S2 positive. ABDOMEN: Abdomen is soft, nontender. Patient has normal bowel sounds. SKIN: There is no rash. Warm and dry. NEURO: sedated MUSCULOSKELETAL: No joint effusion or tenderness. EXTREMITY: No edema, no cyanosis or clubbing. Cold foot, without palpable pulse . Vital Signs - 12hr 10/18/16 10/18/16 10/18/16 01:00 01:30 02:00 Temperature Pulse Rate 88 88 93 H Respiratory 14 20 15 Rate Blood Pressure 126/57 128/58 136/65 O2 Sat by Pulse 100 100 100 Oximetry 10/18/16 10/18/16 10/18/16 02:30 03:00 03:30 Temperature Pulse Rate 99 H 105 H 102 H Respiratory 13 20 19 Rate Blood Pressure 147/63 144/70 145/65 O2 Sat by Pulse 100 100 100 Oximetry 10/18/16 10/18/16 10/18/16 03:57 04:00 04:09 Temperature 100.6 F H Pulse Rate 98 H 102 H Respiratory 20 Rate Blood Pressure 138/68 138/68 O2 Sat by Pulse 99 100 100 Oximetry 10/18/16 10/18/16 10/18/16 04:30 05:00 05:30 Temperature Pulse Rate 106 H 114 H 106 H Respiratory 21 20 11 L Rate Blood Pressure 150/69 156/74 147/72 O2 Sat by Pulse 100 100 100 Oximetry 10/18/16 10/18/16 10/18/16 05:55 06:00 06:30 Temperature Pulse Rate 95 H 86 90 Respiratory 20 20 Rate Blood Pressure 147/72 131/63 138/69 O2 Sat by Pulse 100 100 Oximetry 10/18/16 10/18/16 10/18/16 07:01 07:30 07:52 Temperature 100.3 F H Pulse Rate 92 H 90 Respiratory 20 15 Rate Blood Pressure 160/61 137/70 O2 Sat by Pulse 100 100 Oximetry 10/18/16 10/18/16 10/18/16 08:00 08:30 09:00 Temperature Pulse Rate 84 85 101 H Respiratory 20 20 19 Rate Blood Pressure 119/55 133/58 154/101 O2 Sat by Pulse 100 100 100 Oximetry 10/18/16 10/18/16 10/18/16 09:10 09:19 09:30 Temperature Pulse Rate 111 H 110 H Respiratory 34 H 12 Rate Blood Pressure 154/101 150/63 O2 Sat by Pulse 100 100 Oximetry 10/18/16 10/18/16 10/18/16 10:00 10:30 11:00 Temperature Pulse Rate 107 H 116 H 117 H Respiratory 22 26 H 30 H Rate Blood Pressure 136/59 141/65 136/58 O2 Sat by Pulse 100 100 100 Oximetry 10/18/16 10/18/16 10/18/16 11:30 12:00 12:30 Temperature Pulse Rate 110 H 108 H 107 H Respiratory 18 12 15 Rate Blood Pressure 129/56 146/62 141/59 O2 Sat by Pulse 100 100 100 Oximetry Constitutional: no acute distress, other (sedated) Eyes: non-icteric ENT: oropharynx moist Neck: supple, no lymphadenopathy Effort: normal, mildly labored Ascultation: Bilateral: diminished breath sounds, rales Cardiovascular: regular rate and rhythm Gastrointestinal: normoactive bowel sounds, soft, non-tender, non-distended Integumentary: normal Extremities: no cyanosis, no edema, pulses normal (Cold right foot), no ischemia or petechiae Neurologic: unable to assess Psychiatric: other (sedated) CBC and BMP: 10/18/16 06:46 10/18/16 06:46 ABG, PT/INR, D-dimer: ABG POC ABG pH 7.454 (7.35-7.45) H 10/18/16 04:37 POC ABG pCO2 30.8 (35-45) L 10/18/16 04:37 POC ABG pO2 115 (80-105) H 10/18/16 04:37 POC ABG HCO3 21.6 10/18/16 04:37 POC ABG Total CO2 23 10/18/16 04:37 POC ABG O2 Sat 99 10/18/16 04:37 PT/INR, D-dimer PT 16.4 Sec. (12.2-14.9) H 10/17/16 16:07 INR 1.33 (0.87-1.13) H 10/17/16 16:07 Abnormal lab findings: Abnormal Labs 10/13/16 10/13/16 10/13/16 06:38 06:38 07:23 WBC RBC Hgb Hct MCV RDW Plt Count Lymph % (Auto) [place] % (Auto) [place] # Seg Neutrophils % Seg Neuts % (Manual) Lymphocytes % (Manual) Monocytes % (Manual) Seg Neutrophils # Seg Neutrophils # Man Lymphocytes # (Manual) Monocytes # (Manual) PT INR APTT Heparin Anti-Xa Level POC ABG pH POC ABG pCO2 POC ABG pO2 Sodium Potassium 6.2 H* Chloride Carbon Dioxide 8 L* BUN 85 H Creatinine 2.8 H Glucose 602 H* POC Glucose 495 H Calcium 7.9 L Phosphorus 6.9 H D Magnesium 3.0 H AST C-Reactive Protein Total Protein Albumin Lipase Urine WBC (Auto) Urine Chloride Urine Total Protein 10/13/16 10/13/16 10/13/16 08:49 08:55 10:12 WBC RBC Hgb Hct MCV RDW Plt Count Lymph % (Auto) [place] % (Auto) [place] # Seg Neutrophils % Seg Neuts % (Manual) Lymphocytes % (Manual) Monocytes % (Manual) Seg Neutrophils # Seg Neutrophils # Man Lymphocytes # (Manual) Monocytes # (Manual) PT INR APTT Heparin Anti-Xa Level POC ABG pH POC ABG pCO2 POC ABG pO2 Sodium Potassium 5.6 H Chloride Carbon Dioxide 11 L BUN 77 H Creatinine 2.7 H Glucose 457 H POC Glucose > 500 H 424 H Calcium 8.0 L Phosphorus Magnesium AST C-Reactive Protein Total Protein Albumin Lipase Urine WBC (Auto) Urine Chloride Urine Total Protein 10/13/16 10/13/16 10/13/16 10:44 11:22 12:20 WBC RBC Hgb Hct MCV RDW Plt Count Lymph % (Auto) [place] % (Auto) [place] # Seg Neutrophils % Seg Neuts % (Manual) Lymphocytes % (Manual) Monocytes % (Manual) Seg Neutrophils # Seg Neutrophils # Man Lymphocytes # (Manual) Monocytes # (Manual) PT INR APTT Heparin Anti-Xa Level POC ABG pH POC ABG pCO2 POC ABG pO2 Sodium Potassium 5.4 H Chloride Carbon Dioxide 14 L BUN 72 H Creatinine 2.6 H Glucose 383 H POC Glucose 391 H 313 H Calcium 8.2 L Phosphorus Magnesium AST C-Reactive Protein Total Protein Albumin Lipase Urine WBC (Auto) Urine Chloride Urine Total Protein 10/13/16 10/13/16 10/13/16 13:32 14:44 15:57 WBC RBC Hgb Hct MCV RDW Plt Count Lymph % (Auto) [place] % (Auto) [place] # Seg Neutrophils % Seg Neuts % (Manual) Lymphocytes % (Manual) Monocytes % (Manual) Seg Neutrophils # Seg Neutrophils # Man Lymphocytes # (Manual) Monocytes # (Manual) PT INR APTT Heparin Anti-Xa Level POC ABG pH POC ABG pCO2 POC ABG pO2 Sodium Potassium Chloride Carbon Dioxide BUN Creatinine Glucose POC Glucose 296 H 210 H 190 H Calcium Phosphorus Magnesium AST C-Reactive Protein Total Protein Albumin Lipase Urine WBC (Auto) Urine Chloride Urine Total Protein 10/13/16 10/13/16 10/13/16 16:14 16:14 17:17 WBC RBC Hgb Hct MCV RDW Plt Count Lymph % (Auto) [place] % (Auto) [place] # Seg Neutrophils % Seg Neuts % (Manual) Lymphocytes % (Manual) Monocytes % (Manual) Seg Neutrophils # Seg Neutrophils # Man Lymphocytes # (Manual) Monocytes # (Manual) PT INR APTT Heparin Anti-Xa Level POC ABG pH POC ABG pCO2 POC ABG pO2 Sodium Potassium Chloride Carbon Dioxide 17 L BUN 58 H Creatinine 1.8 H Glucose 172 H POC Glucose 193 H Calcium 7.7 L Phosphorus Magnesium AST C-Reactive Protein 10.50 H Total Protein Albumin Lipase Urine WBC (Auto) Urine Chloride Urine Total Protein 10/13/16 10/13/16 10/13/16 17:55 18:32 19:41 WBC RBC Hgb Hct MCV RDW Plt Count Lymph % (Auto) [place] % (Auto) [place] # Seg Neutrophils % Seg Neuts % (Manual) Lymphocytes % (Manual) Monocytes % (Manual) Seg Neutrophils # Seg Neutrophils # Man Lymphocytes # (Manual) Monocytes # (Manual) PT INR APTT Heparin Anti-Xa Level POC ABG pH POC ABG pCO2 30.6 L POC ABG pO2 218 H Sodium Potassium Chloride Carbon Dioxide BUN Creatinine Glucose POC Glucose 192 H 177 H Calcium Phosphorus Magnesium AST C-Reactive Protein Total Protein Albumin Lipase Urine WBC (Auto) Urine Chloride Urine Total Protein 10/13/16 10/13/16 10/13/16 20:54 22:07 23:13 WBC RBC Hgb Hct MCV RDW Plt Count Lymph % (Auto) [place] % (Auto) [place] # Seg Neutrophils % Seg Neuts % (Manual) Lymphocytes % (Manual) Monocytes % (Manual) Seg Neutrophils # Seg Neutrophils # Man Lymphocytes # (Manual) Monocytes # (Manual) PT INR APTT Heparin Anti-Xa Level POC ABG pH POC ABG pCO2 POC ABG pO2 Sodium Potassium Chloride Carbon Dioxide BUN Creatinine Glucose POC Glucose 178 H 160 H 168 H Calcium Phosphorus Magnesium AST C-Reactive Protein Total Protein Albumin Lipase Urine WBC (Auto) Urine Chloride Urine Total Protein 10/13/16 10/13/16 10/14/16 23:25 Unknown 00:21 WBC RBC Hgb Hct MCV RDW Plt Count Lymph % (Auto) [place] % (Auto) [place] # Seg Neutrophils % Seg Neuts % (Manual) Lymphocytes % (Manual) Monocytes % (Manual) Seg Neutrophils # Seg Neutrophils # Man Lymphocytes # (Manual) Monocytes # (Manual) PT INR APTT Heparin Anti-Xa Level POC ABG pH POC ABG pCO2 POC ABG pO2 Sodium 148 H Potassium Chloride 114.6 H Carbon Dioxide 17 L BUN 56 H Creatinine 1.6 H Glucose 151 H POC Glucose 171 H Calcium 7.8 L Phosphorus Magnesium AST C-Reactive Protein Total Protein Albumin Lipase Urine WBC (Auto) Urine Chloride 10.0 L Urine Total Protein < 4 L 10/14/16 10/14/16 10/14/16 01:22 02:29 03:30 WBC RBC Hgb Hct MCV RDW Plt Count Lymph % (Auto) [place] % (Auto) [place] # Seg Neutrophils % Seg Neuts % (Manual) Lymphocytes % (Manual) Monocytes % (Manual) Seg Neutrophils # Seg Neutrophils # Man Lymphocytes # (Manual) Monocytes # (Manual) PT INR APTT Heparin Anti-Xa Level POC ABG pH POC ABG pCO2 POC ABG pO2 Sodium Potassium Chloride Carbon Dioxide BUN Creatinine Glucose POC Glucose 144 H 136 H 143 H Calcium Phosphorus Magnesium AST C-Reactive Protein Total Protein Albumin Lipase Urine WBC (Auto) Urine Chloride Urine Total Protein 10/14/16 10/14/16 10/14/16 04:28 05:16 05:44 WBC RBC Hgb Hct MCV RDW Plt Count Lymph % (Auto) [place] % (Auto) [place] # Seg Neutrophils % Seg Neuts % (Manual) Lymphocytes % (Manual) Monocytes % (Manual) Seg Neutrophils # Seg Neutrophils # Man Lymphocytes # (Manual) Monocytes # (Manual) PT INR APTT Heparin Anti-Xa Level POC ABG pH POC ABG pCO2 28.2 L POC ABG pO2 125 H Sodium Potassium Chloride Carbon Dioxide BUN Creatinine Glucose POC Glucose 133 H 160 H Calcium Phosphorus Magnesium AST C-Reactive Protein Total Protein Albumin Lipase Urine WBC (Auto) Urine Chloride Urine Total Protein 10/14/16 10/14/16 10/14/16 06:12 06:45 07:03 WBC RBC Hgb Hct MCV RDW Plt Count Lymph % (Auto) [place] % (Auto) [place] # Seg Neutrophils % Seg Neuts % (Manual) Lymphocytes % (Manual) Monocytes % (Manual) Seg Neutrophils # Seg Neutrophils # Man Lymphocytes # (Manual) Monocytes # (Manual) PT INR APTT Heparin Anti-Xa Level POC ABG pH POC ABG pCO2 POC ABG pO2 Sodium 149 H Potassium Chloride 115.4 H Carbon Dioxide 17 L BUN 45 H Creatinine 1.5 H Glucose 139 H POC Glucose 149 H Calcium 7.4 L Phosphorus 1.0 L D Magnesium AST C-Reactive Protein Total Protein Albumin Lipase Urine WBC (Auto) Urine Chloride Urine Total Protein 10/14/16 10/14/16 10/14/16 07:03 08:02 09:16 WBC RBC Hgb Hct MCV RDW Plt Count Lymph % (Auto) [place] % (Auto) [place] # Seg Neutrophils % Seg Neuts % (Manual) Lymphocytes % (Manual) Monocytes % (Manual) Seg Neutrophils # Seg Neutrophils # Man Lymphocytes # (Manual) Monocytes # (Manual) PT INR APTT Heparin Anti-Xa Level POC ABG pH POC ABG pCO2 POC ABG pO2 Sodium Potassium Chloride Carbon Dioxide BUN Creatinine Glucose POC Glucose 156 H 158 H Calcium Phosphorus Magnesium AST C-Reactive Protein Total Protein Albumin Lipase 738 H Urine WBC (Auto) Urine Chloride Urine Total Protein 10/14/16 10/14/16 10/14/16 10:26 11:03 11:57 WBC RBC Hgb Hct MCV RDW Plt Count Lymph % (Auto) [place] % (Auto) [place] # Seg Neutrophils % Seg Neuts % (Manual) Lymphocytes % (Manual) Monocytes % (Manual) Seg Neutrophils # Seg Neutrophils # Man Lymphocytes # (Manual) Monocytes # (Manual) PT INR APTT Heparin Anti-Xa Level POC ABG pH 7.198 L POC ABG pCO2 47.5 H POC ABG pO2 Sodium Potassium Chloride Carbon Dioxide BUN Creatinine Glucose POC Glucose 174 H 189 H Calcium Phosphorus Magnesium AST C-Reactive Protein Total Protein Albumin Lipase Urine WBC (Auto) Urine Chloride Urine Total Protein 10/14/16 10/14/16 10/14/16 12:02 12:02 13:11 WBC 13.4 H RBC 3.60 L Hgb Hct MCV 98 H D RDW 13.1 L Plt Count Lymph % (Auto) [place] % (Auto) [place] # Seg Neutrophils % Seg Neuts % (Manual) Lymphocytes % (Manual) Monocytes % (Manual) Seg Neutrophils # Seg Neutrophils # Man Lymphocytes # (Manual) Monocytes # (Manual) PT INR APTT Heparin Anti-Xa Level POC ABG pH POC ABG pCO2 POC ABG pO2 Sodium Potassium Chloride 110.7 H Carbon Dioxide 19 L BUN 38 H Creatinine 1.4 H Glucose 182 H POC Glucose 173 H Calcium 7.5 L Phosphorus Magnesium AST C-Reactive Protein Total Protein Albumin Lipase Urine WBC (Auto) Urine Chloride Urine Total Protein 10/14/16 10/14/16 10/14/16 14:24 15:31 16:36 WBC RBC Hgb Hct MCV RDW Plt Count Lymph % (Auto) [place] % (Auto) [place] # Seg Neutrophils % Seg Neuts % (Manual) Lymphocytes % (Manual) Monocytes % (Manual) Seg Neutrophils # Seg Neutrophils # Man Lymphocytes # (Manual) Monocytes # (Manual) PT INR APTT Heparin Anti-Xa Level POC ABG pH POC ABG pCO2 POC ABG pO2 Sodium Potassium Chloride Carbon Dioxide BUN Creatinine Glucose POC Glucose 123 H 124 H 156 H Calcium Phosphorus Magnesium AST C-Reactive Protein Total Protein Albumin Lipase Urine WBC (Auto) Urine Chloride Urine Total Protein 10/14/16 10/14/16 10/14/16 17:43 19:00 20:08 WBC RBC Hgb Hct MCV RDW Plt Count Lymph % (Auto) [place] % (Auto) [place] # Seg Neutrophils % Seg Neuts % (Manual) Lymphocytes % (Manual) Monocytes % (Manual) Seg Neutrophils # Seg Neutrophils # Man Lymphocytes # (Manual) Monocytes # (Manual) PT INR APTT Heparin Anti-Xa Level POC ABG pH POC ABG pCO2 POC ABG pO2 Sodium Potassium Chloride Carbon Dioxide BUN Creatinine Glucose POC Glucose 154 H 123 H 138 H Calcium Phosphorus Magnesium AST C-Reactive Protein Total Protein Albumin Lipase Urine WBC (Auto) Urine Chloride Urine Total Protein 10/14/16 10/14/16 10/14/16 21:17 22:25 23:37 WBC RBC Hgb Hct MCV RDW Plt Count Lymph % (Auto) [place] % (Auto) [place] # Seg Neutrophils % Seg Neuts % (Manual) Lymphocytes % (Manual) Monocytes % (Manual) Seg Neutrophils # Seg Neutrophils # Man Lymphocytes # (Manual) Monocytes # (Manual) PT INR APTT Heparin Anti-Xa Level POC ABG pH POC ABG pCO2 POC ABG pO2 Sodium Potassium Chloride Carbon Dioxide BUN Creatinine Glucose POC Glucose 148 H 132 H 137 H Calcium Phosphorus Magnesium AST C-Reactive Protein Total Protein Albumin Lipase Urine WBC (Auto) Urine Chloride Urine Total Protein 10/15/16 10/15/16 10/15/16 00:49 01:53 03:06 WBC RBC Hgb Hct MCV RDW Plt Count Lymph % (Auto) [place] % (Auto) [place] # Seg Neutrophils % Seg Neuts % (Manual) Lymphocytes % (Manual) Monocytes % (Manual) Seg Neutrophils # Seg Neutrophils # Man Lymphocytes # (Manual) Monocytes # (Manual) PT INR APTT Heparin Anti-Xa Level POC ABG pH POC ABG pCO2 POC ABG pO2 Sodium Potassium Chloride Carbon Dioxide BUN Creatinine Glucose POC Glucose 132 H 134 H 134 H Calcium Phosphorus Magnesium AST C-Reactive Protein Total Protein Albumin Lipase Urine WBC (Auto) Urine Chloride Urine Total Protein 10/15/16 10/15/16 10/15/16 04:40 04:46 06:21 WBC RBC Hgb Hct MCV RDW Plt Count Lymph % (Auto) [place] % (Auto) [place] # Seg Neutrophils % Seg Neuts % (Manual) Lymphocytes % (Manual) Monocytes % (Manual) Seg Neutrophils # Seg Neutrophils # Man Lymphocytes # (Manual) Monocytes # (Manual) PT INR APTT Heparin Anti-Xa Level POC ABG pH POC ABG pCO2 30.7 L POC ABG pO2 108 H Sodium Potassium Chloride 109.0 H Carbon Dioxide 17 L BUN 27 H Creatinine Glucose 124 H POC Glucose 160 H Calcium 7.5 L Phosphorus Magnesium AST 79 H C-Reactive Protein Total Protein 5.5 L Albumin 3.0 L Lipase Urine WBC (Auto) Urine Chloride Urine Total Protein 10/15/16 10/15/16 10/15/16 07:12 08:01 09:03 WBC RBC Hgb Hct MCV RDW Plt Count Lymph % (Auto) [place] % (Auto) [place] # Seg Neutrophils % Seg Neuts % (Manual) Lymphocytes % (Manual) Monocytes % (Manual) Seg Neutrophils # Seg Neutrophils # Man Lymphocytes # (Manual) Monocytes # (Manual) PT INR APTT Heparin Anti-Xa Level POC ABG pH POC ABG pCO2 POC ABG pO2 Sodium Potassium Chloride Carbon Dioxide BUN Creatinine Glucose POC Glucose 179 H 187 H 165 H Calcium Phosphorus Magnesium AST C-Reactive Protein Total Protein Albumin Lipase Urine WBC (Auto) Urine Chloride Urine Total Protein 10/15/16 10/15/16 10/15/16 10:06 10:06 10:07 WBC 12.1 H RBC 3.01 L Hgb 9.7 L Hct 29.6 L MCV 98 H RDW Plt Count 129 L Lymph % (Auto) [place] % (Auto) [place] # Seg Neutrophils % Seg Neuts % (Manual) Lymphocytes % (Manual) Monocytes % (Manual) Seg Neutrophils # Seg Neutrophils # Man Lymphocytes # (Manual) Monocytes # (Manual) PT INR APTT Heparin Anti-Xa Level POC ABG pH POC ABG pCO2 POC ABG pO2 Sodium Potassium 3.2 L D Chloride 109.6 H Carbon Dioxide 18 L BUN 22 H Creatinine Glucose 127 H POC Glucose 147 H Calcium 7.0 L Phosphorus Magnesium AST C-Reactive Protein Total Protein Albumin Lipase Urine WBC (Auto) Urine Chloride Urine Total Protein 10/15/16 10/15/16 10/15/16 11:05 11:06 11:57 WBC RBC Hgb Hct MCV RDW Plt Count Lymph % (Auto) [place] % (Auto) [place] # Seg Neutrophils % Seg Neuts % (Manual) Lymphocytes % (Manual) Monocytes % (Manual) Seg Neutrophils # Seg Neutrophils # Man Lymphocytes # (Manual) Monocytes # (Manual) PT INR APTT Heparin Anti-Xa Level POC ABG pH 7.305 L POC ABG pCO2 POC ABG pO2 Sodium Potassium Chloride Carbon Dioxide BUN Creatinine Glucose POC Glucose 145 H Calcium Phosphorus Magnesium AST C-Reactive Protein Total Protein Albumin Lipase Urine WBC (Auto) 7.0 H Urine Chloride Urine Total Protein 10/15/16 10/15/16 10/15/16 12:04 13:59 15:24 WBC RBC Hgb Hct MCV RDW Plt Count Lymph % (Auto) [place] % (Auto) [place] # Seg Neutrophils % Seg Neuts % (Manual) Lymphocytes % (Manual) Monocytes % (Manual) Seg Neutrophils # Seg Neutrophils # Man Lymphocytes # (Manual) Monocytes # (Manual) PT INR APTT Heparin Anti-Xa Level POC ABG pH POC ABG pCO2 POC ABG pO2 Sodium Potassium Chloride Carbon Dioxide BUN Creatinine Glucose POC Glucose 123 H 147 H 153 H Calcium Phosphorus Magnesium AST C-Reactive Protein Total Protein Albumin Lipase Urine WBC (Auto) Urine Chloride Urine Total Protein 10/15/16 10/15/16 10/15/16 16:30 17:34 18:30 WBC RBC Hgb Hct MCV RDW Plt Count Lymph % (Auto) [place] % (Auto) [place] # Seg Neutrophils % Seg Neuts % (Manual) Lymphocytes % (Manual) Monocytes % (Manual) Seg Neutrophils # Seg Neutrophils # Man Lymphocytes # (Manual) Monocytes # (Manual) PT INR APTT Heparin Anti-Xa Level POC ABG pH POC ABG pCO2 POC ABG pO2 Sodium Potassium Chloride Carbon Dioxide BUN Creatinine Glucose POC Glucose 223 H 236 H 164 H Calcium Phosphorus Magnesium AST C-Reactive Protein Total Protein Albumin Lipase Urine WBC (Auto) Urine Chloride Urine Total Protein 10/15/16 10/15/16 10/15/16 19:14 20:31 21:23 WBC RBC Hgb Hct MCV RDW Plt Count Lymph % (Auto) [place] % (Auto) [place] # Seg Neutrophils % Seg Neuts % (Manual) Lymphocytes % (Manual) Monocytes % (Manual) Seg Neutrophils # Seg Neutrophils # Man Lymphocytes # (Manual) Monocytes # (Manual) PT INR APTT Heparin Anti-Xa Level POC ABG pH POC ABG pCO2 POC ABG pO2 Sodium Potassium Chloride Carbon Dioxide BUN Creatinine Glucose POC Glucose 138 H 158 H 158 H Calcium Phosphorus Magnesium AST C-Reactive Protein Total Protein Albumin Lipase Urine WBC (Auto) Urine Chloride Urine Total Protein 10/15/16 10/15/16 10/16/16 22:04 22:57 00:11 WBC RBC Hgb Hct MCV RDW Plt Count Lymph % (Auto) [place] % (Auto) [place] # Seg Neutrophils % Seg Neuts % (Manual) Lymphocytes % (Manual) Monocytes % (Manual) Seg Neutrophils # Seg Neutrophils # Man Lymphocytes # (Manual) Monocytes # (Manual) PT INR APTT Heparin Anti-Xa Level POC ABG pH POC ABG pCO2 POC ABG pO2 Sodium Potassium Chloride Carbon Dioxide BUN Creatinine Glucose POC Glucose 168 H 213 H 166 H Calcium Phosphorus Magnesium AST C-Reactive Protein Total Protein Albumin Lipase Urine WBC (Auto) Urine Chloride Urine Total Protein 10/16/16 10/16/16 10/16/16 01:16 02:32 03:38 WBC RBC Hgb Hct MCV RDW Plt Count Lymph % (Auto) [place] % (Auto) [place] # Seg Neutrophils % Seg Neuts % (Manual) Lymphocytes % (Manual) Monocytes % (Manual) Seg Neutrophils # Seg Neutrophils # Man Lymphocytes # (Manual) Monocytes # (Manual) PT INR APTT Heparin Anti-Xa Level POC ABG pH POC ABG pCO2 POC ABG pO2 Sodium Potassium Chloride Carbon Dioxide BUN Creatinine Glucose POC Glucose 171 H 164 H 147 H Calcium Phosphorus Magnesium AST C-Reactive Protein Total Protein Albumin Lipase Urine WBC (Auto) Urine Chloride Urine Total Protein 10/16/16 10/16/16 10/16/16 04:14 04:14 04:49 WBC RBC Hgb Hct MCV RDW Plt Count Lymph % (Auto) [place] % (Auto) [place] # Seg Neutrophils % Seg Neuts % (Manual) Lymphocytes % (Manual) Monocytes % (Manual) Seg Neutrophils # Seg Neutrophils # Man Lymphocytes # (Manual) Monocytes # (Manual) PT INR APTT Heparin Anti-Xa Level POC ABG pH POC ABG pCO2 POC ABG pO2 Sodium 147 H Potassium Chloride 110.9 H Carbon Dioxide 19 L BUN Creatinine Glucose 139 H POC Glucose 144 H Calcium 7.3 L Phosphorus 2.3 L Magnesium AST C-Reactive Protein Total Protein Albumin Lipase 143 H Urine WBC (Auto) Urine Chloride Urine Total Protein 10/16/16 10/16/16 10/16/16 05:03 05:41 05:58 WBC 16.5 H RBC 3.36 L Hgb Hct MCV 98 H RDW 13.1 L Plt Count Lymph % (Auto) 8.5 L [place] % (Auto) 7.6 H [place] # 1.3 H Seg Neutrophils % 83.3 H Seg Neuts % (Manual) Lymphocytes % (Manual) Monocytes % (Manual) Seg Neutrophils # 13.8 H Seg Neutrophils # Man Lymphocytes # (Manual) Monocytes # (Manual) PT INR APTT Heparin Anti-Xa Level POC ABG pH POC ABG pCO2 30.7 L POC ABG pO2 128 H Sodium Potassium Chloride Carbon Dioxide BUN Creatinine Glucose POC Glucose 131 H Calcium Phosphorus Magnesium AST C-Reactive Protein Total Protein Albumin Lipase Urine WBC (Auto) Urine Chloride Urine Total Protein 10/16/16 10/16/16 10/16/16 06:32 09:27 09:35 WBC RBC Hgb Hct MCV RDW Plt Count Lymph % (Auto) [place] % (Auto) [place] # Seg Neutrophils % Seg Neuts % (Manual) Lymphocytes % (Manual) Monocytes % (Manual) Seg Neutrophils # Seg Neutrophils # Man Lymphocytes # (Manual) Monocytes # (Manual) PT INR APTT Heparin Anti-Xa Level POC ABG pH POC ABG pCO2 32.8 L POC ABG pO2 137 H Sodium Potassium Chloride Carbon Dioxide BUN Creatinine Glucose POC Glucose 121 H 150 H Calcium Phosphorus Magnesium AST C-Reactive Protein Total Protein Albumin Lipase Urine WBC (Auto) Urine Chloride Urine Total Protein 10/16/16 10/16/16 10/16/16 10:47 13:27 14:24 WBC RBC Hgb Hct MCV RDW Plt Count Lymph % (Auto) [place] % (Auto) [place] # Seg Neutrophils % Seg Neuts % (Manual) Lymphocytes % (Manual) Monocytes % (Manual) Seg Neutrophils # Seg Neutrophils # Man Lymphocytes # (Manual) Monocytes # (Manual) PT INR APTT Heparin Anti-Xa Level POC ABG pH POC ABG pCO2 POC ABG pO2 Sodium Potassium Chloride Carbon Dioxide BUN Creatinine Glucose POC Glucose 184 H 171 H 174 H Calcium Phosphorus Magnesium AST C-Reactive Protein Total Protein Albumin Lipase Urine WBC (Auto) Urine Chloride Urine Total Protein 10/16/16 10/16/16 10/16/16 15:48 16:26 18:17 WBC RBC Hgb Hct MCV RDW Plt Count Lymph % (Auto) [place] % (Auto) [place] # Seg Neutrophils % Seg Neuts % (Manual) Lymphocytes % (Manual) Monocytes % (Manual) Seg Neutrophils # Seg Neutrophils # Man Lymphocytes # (Manual) Monocytes # (Manual) PT INR APTT Heparin Anti-Xa Level POC ABG pH POC ABG pCO2 POC ABG pO2 Sodium Potassium Chloride Carbon Dioxide BUN Creatinine Glucose POC Glucose 205 H 204 H 234 H Calcium Phosphorus Magnesium AST C-Reactive Protein Total Protein Albumin Lipase Urine WBC (Auto) Urine Chloride Urine Total Protein 10/16/16 10/16/16 10/16/16 19:40 20:33 21:36 WBC RBC Hgb Hct MCV RDW Plt Count Lymph % (Auto) [place] % (Auto) [place] # Seg Neutrophils % Seg Neuts % (Manual) Lymphocytes % (Manual) Monocytes % (Manual) Seg Neutrophils # Seg Neutrophils # Man Lymphocytes # (Manual) Monocytes # (Manual) PT INR APTT Heparin Anti-Xa Level POC ABG pH POC ABG pCO2 POC ABG pO2 Sodium Potassium Chloride Carbon Dioxide BUN Creatinine Glucose POC Glucose 167 H 153 H 158 H Calcium Phosphorus Magnesium AST C-Reactive Protein Total Protein Albumin Lipase Urine WBC (Auto) Urine Chloride Urine Total Protein 10/16/16 10/16/16 10/17/16 22:54 23:48 00:47 WBC RBC Hgb Hct MCV RDW Plt Count Lymph % (Auto) [place] % (Auto) [place] # Seg Neutrophils % Seg Neuts % (Manual) Lymphocytes % (Manual) Monocytes % (Manual) Seg Neutrophils # Seg Neutrophils # Man Lymphocytes # (Manual) Monocytes # (Manual) PT INR APTT Heparin Anti-Xa Level POC ABG pH POC ABG pCO2 POC ABG pO2 Sodium Potassium Chloride Carbon Dioxide BUN Creatinine Glucose POC Glucose 180 H 207 H 196 H Calcium Phosphorus Magnesium AST C-Reactive Protein Total Protein Albumin Lipase Urine WBC (Auto) Urine Chloride Urine Total Protein 10/17/16 10/17/16 10/17/16 01:57 02:49 03:50 WBC RBC Hgb Hct MCV RDW Plt Count Lymph % (Auto) [place] % (Auto) [place] # Seg Neutrophils % Seg Neuts % (Manual) Lymphocytes % (Manual) Monocytes % (Manual) Seg Neutrophils # Seg Neutrophils # Man Lymphocytes # (Manual) Monocytes # (Manual) PT INR APTT Heparin Anti-Xa Level POC ABG pH POC ABG pCO2 POC ABG pO2 Sodium Potassium Chloride Carbon Dioxide BUN Creatinine Glucose POC Glucose 180 H 151 H 106 H Calcium Phosphorus Magnesium AST C-Reactive Protein Total Protein Albumin Lipase Urine WBC (Auto) Urine Chloride Urine Total Protein 10/17/16 10/17/16 10/17/16 04:59 06:03 06:35 WBC RBC Hgb Hct MCV RDW Plt Count Lymph % (Auto) [place] % (Auto) [place] # Seg Neutrophils % Seg Neuts % (Manual) Lymphocytes % (Manual) Monocytes % (Manual) Seg Neutrophils # Seg Neutrophils # Man Lymphocytes # (Manual) Monocytes # (Manual) PT INR APTT Heparin Anti-Xa Level POC ABG pH 7.453 H POC ABG pCO2 30.1 L POC ABG pO2 111 H Sodium Potassium Chloride Carbon Dioxide BUN Creatinine Glucose POC Glucose 145 H 157 H Calcium Phosphorus Magnesium AST C-Reactive Protein Total Protein Albumin Lipase Urine WBC (Auto) Urine Chloride Urine Total Protein 10/17/16 10/17/16 10/17/16 07:08 07:11 08:01 WBC RBC Hgb Hct MCV RDW Plt Count Lymph % (Auto) [place] % (Auto) [place] # Seg Neutrophils % Seg Neuts % (Manual) Lymphocytes % (Manual) Monocytes % (Manual) Seg Neutrophils # Seg Neutrophils # Man Lymphocytes # (Manual) Monocytes # (Manual) PT INR APTT Heparin Anti-Xa Level POC ABG pH POC ABG pCO2 POC ABG pO2 Sodium 147 H Potassium Chloride 113.8 H Carbon Dioxide 19 L BUN Creatinine Glucose 136 H POC Glucose 136 H 152 H Calcium 7.7 L Phosphorus Magnesium AST C-Reactive Protein Total Protein Albumin Lipase Urine WBC (Auto) Urine Chloride Urine Total Protein 10/17/16 10/17/16 10/17/16 08:23 09:17 09:53 WBC 18.1 H RBC 3.01 L Hgb 9.7 L Hct 29.4 L MCV 98 H RDW Plt Count 116 L Lymph % (Auto) [place] % (Auto) [place] # Seg Neutrophils % Seg Neuts % (Manual) 77.0 H Lymphocytes % (Manual) 4.0 L Monocytes % (Manual) 12.0 H Seg Neutrophils # Seg Neutrophils # Man 13.9 H Lymphocytes # (Manual) 0.7 L Monocytes # (Manual) 2.2 H PT INR APTT Heparin Anti-Xa Level POC ABG pH POC ABG pCO2 POC ABG pO2 Sodium Potassium Chloride Carbon Dioxide BUN Creatinine Glucose POC Glucose 148 H 137 H Calcium Phosphorus Magnesium AST C-Reactive Protein Total Protein Albumin Lipase Urine WBC (Auto) Urine Chloride Urine Total Protein 10/17/16 10/17/16 10/17/16 11:43 16:07 17:42 WBC RBC Hgb Hct MCV RDW Plt Count Lymph % (Auto) [place] % (Auto) [place] # Seg Neutrophils % Seg Neuts % (Manual) Lymphocytes % (Manual) Monocytes % (Manual) Seg Neutrophils # Seg Neutrophils # Man Lymphocytes # (Manual) Monocytes # (Manual) PT 16.4 H INR 1.33 H APTT 38.8 H Heparin Anti-Xa Level POC ABG pH POC ABG pCO2 POC ABG pO2 Sodium Potassium Chloride Carbon Dioxide BUN Creatinine Glucose POC Glucose 179 H 153 H Calcium Phosphorus Magnesium AST C-Reactive Protein Total Protein Albumin Lipase Urine WBC (Auto) Urine Chloride Urine Total Protein 10/17/16 10/18/16 10/18/16 22:54 04:37 05:39 WBC RBC Hgb Hct MCV RDW Plt Count Lymph % (Auto) [place] % (Auto) [place] # Seg Neutrophils % Seg Neuts % (Manual) Lymphocytes % (Manual) Monocytes % (Manual) Seg Neutrophils # Seg Neutrophils # Man Lymphocytes # (Manual) Monocytes # (Manual) PT INR APTT Heparin Anti-Xa Level 0.27 L POC ABG pH 7.454 H POC ABG pCO2 30.8 L POC ABG pO2 115 H Sodium Potassium Chloride Carbon Dioxide BUN Creatinine Glucose POC Glucose 69 L Calcium Phosphorus Magnesium AST C-Reactive Protein Total Protein Albumin Lipase Urine WBC (Auto) Urine Chloride Urine Total Protein 10/18/16 10/18/16 10/18/16 06:46 06:46 07:30 WBC 20.5 H RBC 2.62 L Hgb 8.4 L Hct 26.0 L MCV 100 H RDW Plt Count Lymph % (Auto) [place] % (Auto) [place] # Seg Neutrophils % Seg Neuts % (Manual) 75.0 H Lymphocytes % (Manual) 9.0 L Monocytes % (Manual) 14.0 H Seg Neutrophils # Seg Neutrophils # Man 15.4 H Lymphocytes # (Manual) Monocytes # (Manual) 2.9 H PT INR APTT Heparin Anti-Xa Level POC ABG pH POC ABG pCO2 POC ABG pO2 Sodium Potassium Chloride 110.6 H Carbon Dioxide BUN Creatinine 1.3 H Glucose 153 H POC Glucose 162 H Calcium 8.0 L Phosphorus Magnesium AST C-Reactive Protein Total Protein Albumin Lipase Urine WBC (Auto) Urine Chloride Urine Total Protein 10/18/16 11:37 WBC RBC Hgb Hct MCV RDW Plt Count Lymph % (Auto) [place] % (Auto) [place] # Seg Neutrophils % Seg Neuts % (Manual) Lymphocytes % (Manual) Monocytes % (Manual) Seg Neutrophils # Seg Neutrophils # Man Lymphocytes # (Manual) Monocytes # (Manual) PT INR APTT Heparin Anti-Xa Level POC ABG pH POC ABG pCO2 POC ABG pO2 Sodium Potassium Chloride Carbon Dioxide BUN Creatinine Glucose POC Glucose 156 H Calcium Phosphorus Magnesium AST C-Reactive Protein Total Protein Albumin Lipase Urine WBC (Auto) Urine Chloride Urine Total Protein Allied health notes reviewed: RT
[2016-10-18] MEDS ORDERED: SODIUM BICARBONATE FEEDTUBE PRN (13:07)
[2016-10-18] MEDS ORDERED: SIMPLE SYRUP FEEDTUBE PRN ×2 (13:07)
[2016-10-18] MEDS ORDERED: PANCREAZE DR 10,500 UNIT FEEDTUBE PRN (13:07)
[2016-10-18] MEDS: TYLENOL PR PRN (13:08)
--- NOTE | 2016-10-18 13:19 | XRay Report ---
AP CHEST: HISTORY: Right arm PICC placement AP view of the chest demonstrates a normal mediastinal and cardiac contour with clear lungs and normal bony and soft tissue structures. The right arm PICC is in adequate position terminating in the superior right atrium. The endotracheal tube and nasogastric tube remain in good position. IMPRESSION: Unremarkable AP chest.
--- NOTE | 2016-10-18 14:40 | Progress Note ---
Assessment and Plan Assessment and plan: -Acute respiratory failure -Acute encephalopathy -DKA -Sepsis, Strept Group B tracheobronchitis: cont abx -ARF/CKD 3 -Pancreatitis, acute -Vaginal candidiasis -Hypernatremia -MSOF, poa New issue: Cold right foot which I discovered on Rounds on 10/17/16 and I asked the nurse for the bedside doppler which showed no pulse, My exam on the morning of 10/16/16 morning has changed, she had a pulse right foot. Arterial duplex revealed a proximal right superficial femoral artery occlusion. I consulted and discussed with Vascular surgery, Dr. Eller ==>Acute ischemic right foot, too ill for intervention, on heparin drip. D/W vascular. New issue: dka resolved, started long acting and stop drip yesterday 10/17/16. still trying to wean vent CCT 34 minutes History Interval history: Patient seen and examined. Follow up on DKA and still intubated. Overnight uneventful. No cp, sob, n/v or severe headaches. Imaging, old records, testing, labs, nursing notes reviewed. Hospitalist Physical - Physical exam Narrative exam: GEN: Intubated and sedated CVS: Tachycardic NORMAL S1S2 LUNGS/CHEST: Tachypnea NORMAL CHEST EXPANSION B, GOOD AIR ENTRY B ABD: SOFT NTND, GBS, NO REBOUND OR GUARDING NEURO: CN 2-12 GROSSLY INTACT, doesn't follow commands PSY: Anxious New issue: cold right foot, asked RN to get the bedside doppler. No pulse, consult Vascular and notified CCM - Constitutional Vitals: Temp Pulse Resp BP Pulse Ox 101.9 F H 96 H 13 135/56 100 10/18/16 12:00 10/18/16 14:00 10/18/16 14:00 10/18/16 14:00 10/18/16 14:00 General appearance: Present: no acute distress Results - Labs CBC & Chem 7: 10/18/16 06:46 10/18/16 06:46 Labs: Laboratory Last Values WBC 20.5 K/mm3 (4.5-11.0) H 10/18/16 06:46 RBC 2.62 M/mm3 (3.65-5.03) L 10/18/16 06:46 Hgb 8.4 gm/dl (10.1-14.3) L 10/18/16 06:46 Hct 26.0 % (30.3-42.9) L 10/18/16 06:46 MCV 100 fl (79-97) H 10/18/16 06:46 MCH 32 pg (28-32) 10/18/16 06:46 MCHC 32 % (30-34) 10/18/16 06:46 RDW 13.3 % (13.2-15.2) 10/18/16 06:46 Plt Count 227 K/mm3 (140-440) 10/18/16 06:46 Lymph % (Auto) TNR 10/17/16 07:08 [place] % (Auto) TNR 10/17/16 07:08 Eos % (Auto) TNR 10/17/16 07:08 Baso % (Auto) TNR 10/17/16 07:08 Lymph # TNR 10/17/16 07:08 [place] # TNR 10/17/16 07:08 Eos # TNR 10/17/16 07:08 Baso # TNR 10/17/16 07:08 Add Manual Diff Complete 10/18/16 06:46 Total Counted 100 10/18/16 06:46 Seg Neutrophils % TNR 10/17/16 07:08 Seg Neuts % (Manual) 75.0 % (40.0-70.0) H 10/18/16 06:46 Band Neutrophils % 2.0 % 10/18/16 06:46 Lymphocytes % (Manual) 9.0 % (13.4-35.0) L 10/18/16 06:46 Reactive Lymphs % (Man) 0 % 10/18/16 06:46 Monocytes % (Manual) 14.0 % (0.0-7.3) H 10/18/16 06:46 Eosinophils % (Manual) 0 % (0.0-4.3) 10/18/16 06:46 Basophils % (Manual) 0 % (0.0-1.8) 10/18/16 06:46 Metamyelocytes % 0 % 10/18/16 06:46 Myelocytes % 0 % 10/18/16 06:46 Promyelocytes % 0 % 10/18/16 06:46 Blast Cells % 0 % 10/18/16 06:46 Nucleated RBC % Not Reportable 10/18/16 06:46 Seg Neutrophils # TNR 10/17/16 07:08 Seg Neutrophils # Man 15.4 K/mm3 (1.8-7.7) H 10/18/16 06:46 Band Neutrophils # 0.4 K/mm3 10/18/16 06:46 Lymphocytes # (Manual) 1.8 K/mm3 (1.2-5.4) 10/18/16 06:46 Abs React Lymphs (Man) 0.0 K/mm3 10/18/16 06:46 Monocytes # (Manual) 2.9 K/mm3 (0.0-0.8) H 10/18/16 06:46 Eosinophils # (Manual) 0.0 K/mm3 (0.0-0.4) 10/18/16 06:46 Basophils # (Manual) 0.0 K/mm3 (0.0-0.1) 10/18/16 06:46 Metamyelocytes # 0.0 K/mm3 10/18/16 06:46 Myelocytes # 0.0 K/mm3 10/18/16 06:46 Promyelocytes # 0.0 K/mm3 10/18/16 06:46 Blast Cells # 0.0 K/mm3 10/18/16 06:46 WBC Morphology Not Reportable 10/18/16 06:46 Hypersegmented Neuts Not Reportable 10/18/16 06:46 Hyposegmented Neuts Not Reportable 10/18/16 06:46 Hypogranular Neuts Not Reportable 10/18/16 06:46 Hypersegmented Polys TNR 10/17/16 07:08 Smudge Cells Not Reportable 10/18/16 06:46 Toxic Granulation Not Reportable 10/18/16 06:46 Toxic Vacuolation Not Reportable 10/18/16 06:46 Dohle Bodies Not Reportable 10/18/16 06:46 Pelger-Huet Anomaly Not Reportable 10/18/16 06:46 [place] Rods Not Reportable 10/18/16 06:46 Platelet Estimate Appears normal 10/18/16 06:46 Clumped Platelets Not Reportable 10/18/16 06:46 Plt Clumps, EDTA Not Reportable 10/18/16 06:46 Large Platelets 1+ 10/18/16 06:46 Giant Platelets Not Reportable 10/18/16 06:46 Platelet Satelliting Not Reportable 10/18/16 06:46 Plt Morphology Comment Not Reportable 10/18/16 06:46 RBC Morphology Not Reportable 10/18/16 06:46 Dimorphic RBCs Not Reportable 10/18/16 06:46 Polychromasia Few 10/18/16 06:46 Hypochromasia Not Reportable 10/18/16 06:46 Poikilocytosis Not Reportable 10/18/16 06:46 Basophilic Stippling TNR 10/17/16 07:08 Anisocytosis 1+ 10/18/16 06:46 Microcytosis Not Reportable 10/18/16 06:46 Macrocytosis Not Reportable 10/18/16 06:46 Spherocytes Not Reportable 10/18/16 06:46 Pappenheimer Bodies Not Reportable 10/18/16 06:46 Sickle Cells Not Reportable 10/18/16 06:46 Target Cells Not Reportable 10/18/16 06:46 Tear Drop Cells Not Reportable 10/18/16 06:46 Ovalocytes Not Reportable 10/18/16 06:46 Stomatocytes Few 10/18/16 06:46 Helmet Cells Not Reportable 10/18/16 06:46 [place] Bodies Not Reportable 10/18/16 06:46 [place] Rings Not Reportable 10/18/16 06:46 [place] Cells Not Reportable 10/18/16 06:46 Bite Cells Not Reportable 10/18/16 06:46 Crenated Cell Not Reportable 10/18/16 06:46 Elliptocytes Not Reportable 10/18/16 06:46 Acanthocytes (Spur) Not Reportable 10/18/16 06:46 Rouleaux Not Reportable 10/18/16 06:46 Hemoglobin C Crystals Not Reportable 10/18/16 06:46 Schistocytes Not Reportable 10/18/16 06:46 Malaria parasites Not Reportable 10/18/16 06:46 David Bodies Not Reportable 10/18/16 06:46 Hem Pathologist Commnt No 10/18/16 06:46 PT 16.4 Sec. (12.2-14.9) H 10/17/16 16:07 INR 1.33 (0.87-1.13) H 10/17/16 16:07 APTT 38.8 Sec. (24.2-36.6) H 10/17/16 16:07 Heparin Anti-Xa Level 0.31 U.I./ml (0.3-0.7) 10/18/16 06:46 POC ABG pH 7.454 (7.35-7.45) H 10/18/16 04:37 POC ABG pCO2 30.8 (35-45) L 10/18/16 04:37 POC ABG pO2 115 (80-105) H 10/18/16 04:37 POC ABG HCO3 21.6 10/18/16 04:37 POC ABG Total CO2 23 10/18/16 04:37 POC ABG O2 Sat 99 10/18/16 04:37 POC ABG Base Excess -2 10/18/16 04:37 VBG pH 7.020 (7.320-7.420) L* 10/13/16 04:22 FiO2 30 % 10/18/16 04:37 Sodium 147 mmol/L (137-145) H 10/17/16 07:08 Potassium 4.1 mmol/L (3.6-5.0) 10/17/16 07:08 Chloride 110.6 mmol/L (98-107) H 10/18/16 06:46 Carbon Dioxide 23 mmol/L (22-30) 10/18/16 06:46 Anion Gap 18 mmol/L 10/18/16 06:46 BUN 12 mg/dL (7-17) 10/18/16 06:46 Creatinine 1.3 mg/dL (0.7-1.2) H 10/18/16 06:46 Estimated GFR 50 ml/min 10/18/16 06:46 BUN/Creatinine Ratio 9.23 % 10/18/16 06:46 Glucose 153 mg/dL (65-100) H 10/18/16 06:46 POC Glucose 156 (70-105) H 10/18/16 11:37 Osmolality 332 Mosm/kg 10/14/16 07:03 Lactic Acid 1.8 mmol/L (0.7-2.0) 10/14/16 07:03 Calcium 8.0 mg/dL (8.4-10.2) L 10/18/16 06:46 Phosphorus 3.7 mg/dL (2.5-4.5) D 10/18/16 06:46 Magnesium 1.6 mg/dL (1.7-2.3) L 10/18/16 06:46 Total Bilirubin 0.5 mg/dL (0.1-1.2) 10/15/16 04:40 AST 79 units/L (5-40) H 10/15/16 04:40 ALT 27 units/L (7-56) 10/15/16 04:40 Alkaline Phosphatase 80 units/L (35-129) 10/15/16 04:40 Ammonia 35.0 umol/L (25-60) 10/13/16 05:40 Total Creatine Kinase 107 units/L (30-135) 10/13/16 04:22 CK-MB (CK-2) 3.1 ng/mL (0.0-4.0) 10/13/16 04:22 CK-MB (CK-2) Rel Index 2.8 (0-4) 10/13/16 04:22 Troponin T < 0.010 ng/mL (0.00-0.029) 10/14/16 18:55 C-Reactive Protein 10.50 mg/dL (0.00-1.30) H 10/13/16 16:14 Total Protein 5.5 g/dL (6.3-8.2) L 10/15/16 04:40 Albumin 3.0 g/dL (3.9-5) L 10/15/16 04:40 Albumin/Globulin Ratio 1.2 % 10/15/16 04:40 Lipase 143 units/L (13-60) H 10/16/16 04:14 Urine Color Yellow (Yellow) 10/15/16 11:05 Urine Turbidity Cloudy (Clear) 10/15/16 11:05 Urine pH 5.0 (5.0-7.0) 10/15/16 11:05 Ur Specific [place] 1.009 (1.003-1.030) 10/15/16 11:05 Urine Protein 30 mg/dl mg/dL (Negative) 10/15/16 11:05 Urine Glucose (UA) 150 mg/dL (Negative) 10/15/16 11:05 Urine Ketones Neg mg/dL (Negative) 10/15/16 11:05 Urine Blood Lg (Negative) 10/15/16 11:05 Urine Nitrite Neg (Negative) 10/15/16 11:05 Urine Bilirubin Neg (Negative) 10/15/16 11:05 Urine Urobilinogen < 2.0 mg/dL (<2.0) 10/15/16 11:05 Ur Leukocyte Esterase Neg (Negative) 10/15/16 11:05 Urine WBC (Auto) 7.0 /HPF (0.0-6.0) H 10/15/16 11:05 Urine RBC (Auto) 7.0 /HPF (0.0-6.0) 10/15/16 11:05 U Epithel Cells (Auto) 1.0 /HPF (0-13.0) 10/15/16 11:05 Urine Mucus Few /HPF 10/15/16 11:05 Urine Yeast (Budding) 2+ /HPF 10/15/16 11:05 Urine Osmolality 487 Mosm/kg 10/13/16 Unknown Urine Creatinine < 4.2 mg/dL (0.1-20.0) 10/13/16 Unknown Protein/Creatinin Ratio 0.00 10/13/16 Unknown Urine Sodium 10 mEq/L 10/13/16 Unknown Urine Potassium 1.00 mEq/L 10/13/16 Unknown Urine Chloride 10.0 mEq/L (110-250) L 10/13/16 Unknown Urine Total Protein < 4 mg/dL (5-11.8) L 10/13/16 Unknown Ketones 107.3 mg/dL (0.2-2.8) H 10/13/16 04:22
--- NOTE | 2016-10-18 15:06 | Progress Note ---
Assessment and Plan Pt was admitted, with DKA, pneumonia, sepsis, and acute on CKD. She is presently intubated with AMS. She was given another sedation holiday, but did not become more alert. Given her current condition, aggressive arterial intervention has a high risk of morbidity/mortality given severely altered mental status, intubated status, and significant tachycardia with recent DKA. She would require fasciotomy following any revascularization. There continues to be no signs of incidental movement on exam ( she does move the LLE). Continues to be on heparin drip. Will continue to follow. Subjective Date of service: 10/18/16 Principal diagnosis: respiratory failure on mechanical ventilatory support, DKA Interval history: No change in mental status since yesterday. Obtunded. Does not follow commands. Right foot cool. On heparin drip. Left foot warm. Objective - Constitutional Vitals: Vital Signs - 12hr 10/18/16 10/18/16 10/18/16 03:30 03:57 04:00 Temperature 100.6 F H Pulse Rate 102 H 98 H Respiratory 19 20 Rate Blood Pressure 145/65 138/68 O2 Sat by Pulse 100 99 100 Oximetry 10/18/16 10/18/16 10/18/16 04:09 04:30 05:00 Temperature Pulse Rate 102 H 106 H 114 H Respiratory 21 20 Rate Blood Pressure 138/68 150/69 156/74 O2 Sat by Pulse 100 100 100 Oximetry 10/18/16 10/18/16 10/18/16 05:30 05:55 06:00 Temperature Pulse Rate 106 H 95 H 86 Respiratory 11 L 20 Rate Blood Pressure 147/72 147/72 131/63 O2 Sat by Pulse 100 100 Oximetry 10/18/16 10/18/16 10/18/16 06:30 07:01 07:30 Temperature Pulse Rate 90 92 H 90 Respiratory 20 20 15 Rate Blood Pressure 138/69 160/61 137/70 O2 Sat by Pulse 100 100 100 Oximetry 10/18/16 10/18/16 10/18/16 07:52 08:00 08:30 Temperature 100.3 F H Pulse Rate 84 85 Respiratory 20 20 Rate Blood Pressure 119/55 133/58 O2 Sat by Pulse 100 100 Oximetry 10/18/16 10/18/16 10/18/16 09:00 09:10 09:19 Temperature Pulse Rate 101 H 111 H Respiratory 19 34 H Rate Blood Pressure 154/101 154/101 O2 Sat by Pulse 100 100 Oximetry 10/18/16 10/18/16 10/18/16 09:30 10:00 10:30 Temperature Pulse Rate 110 H 107 H 116 H Respiratory 12 22 26 H Rate Blood Pressure 150/63 136/59 141/65 O2 Sat by Pulse 100 100 100 Oximetry 10/18/16 10/18/16 10/18/16 11:00 11:30 12:00 Temperature 101.9 F H Pulse Rate 117 H 110 H 108 H Respiratory 30 H 18 12 Rate Blood Pressure 136/58 129/56 146/62 O2 Sat by Pulse 100 100 100 Oximetry 10/18/16 10/18/16 10/18/16 12:30 13:01 13:30 Temperature Pulse Rate 107 H 114 H 100 H Respiratory 15 22 15 Rate Blood Pressure 141/59 161/72 141/62 O2 Sat by Pulse 100 100 100 Oximetry 10/18/16 14:00 Temperature Pulse Rate 96 H Respiratory 13 Rate Blood Pressure 135/56 O2 Sat by Pulse 100 Oximetry General appearance: Present: other (intubated) - EENT Eyes: EOM intact ENT: hearing intact - Respiratory Respiratory effort: other (intubated) Extremities: normal temperature (left lower extremity), normal color (left lower extremity) Extremity abnormal: other (cool right lower extremity from ankle down; first digit has some dusky discoloration; heel has dusky discoloration) - Psychiatric Psychiatric: other (intubated) - Labs CBC & Chem 7: 10/18/16 06:46 10/18/16 06:46 Labs: Abnormal lab results 10/17/16 10/17/16 10/17/16 Range/Units 08:01 09:17 09:53 WBC (4.5-11.0) K/mm3 RBC (3.65-5.03) M/mm3 Hgb (10.1-14.3) gm/dl Hct (30.3-42.9) % MCV (79-97) fl Seg Neuts % (Manual) (40.0-70.0) % Lymphocytes % (Manual) (13.4-35.0) % Monocytes % (Manual) (0.0-7.3) % Seg Neutrophils # Man (1.8-7.7) K/mm3 Monocytes # (Manual) (0.0-0.8) K/mm3 PT (12.2-14.9) Sec. INR (0.87-1.13) APTT (24.2-36.6) Sec. Heparin Anti-Xa Level (0.3-0.7) U.I./ml POC ABG pH (7.35-7.45) POC ABG pCO2 (35-45) POC ABG pO2 (80-105) Chloride (98-107) mmol/L Creatinine (0.7-1.2) mg/dL Glucose (65-100) mg/dL POC Glucose 152 H 148 H 137 H (70-105) Calcium (8.4-10.2) mg/dL Magnesium (1.7-2.3) mg/dL 10/17/16 10/17/16 10/17/16 Range/Units 11:43 16:07 17:42 WBC (4.5-11.0) K/mm3 RBC (3.65-5.03) M/mm3 Hgb (10.1-14.3) gm/dl Hct (30.3-42.9) % MCV (79-97) fl Seg Neuts % (Manual) (40.0-70.0) % Lymphocytes % (Manual) (13.4-35.0) % Monocytes % (Manual) (0.0-7.3) % Seg Neutrophils # Man (1.8-7.7) K/mm3 Monocytes # (Manual) (0.0-0.8) K/mm3 PT 16.4 H (12.2-14.9) Sec. INR 1.33 H (0.87-1.13) APTT 38.8 H (24.2-36.6) Sec. Heparin Anti-Xa Level (0.3-0.7) U.I./ml POC ABG pH (7.35-7.45) POC ABG pCO2 (35-45) POC ABG pO2 (80-105) Chloride (98-107) mmol/L Creatinine (0.7-1.2) mg/dL Glucose (65-100) mg/dL POC Glucose 179 H 153 H (70-105) Calcium (8.4-10.2) mg/dL Magnesium (1.7-2.3) mg/dL 10/17/16 10/18/16 10/18/16 Range/Units 22:54 04:37 05:39 WBC (4.5-11.0) K/mm3 RBC (3.65-5.03) M/mm3 Hgb (10.1-14.3) gm/dl Hct (30.3-42.9) % MCV (79-97) fl Seg Neuts % (Manual) (40.0-70.0) % Lymphocytes % (Manual) (13.4-35.0) % Monocytes % (Manual) (0.0-7.3) % Seg Neutrophils # Man (1.8-7.7) K/mm3 Monocytes # (Manual) (0.0-0.8) K/mm3 PT (12.2-14.9) Sec. INR (0.87-1.13) APTT (24.2-36.6) Sec. Heparin Anti-Xa Level 0.27 L (0.3-0.7) U.I./ml POC ABG pH 7.454 H (7.35-7.45) POC ABG pCO2 30.8 L (35-45) POC ABG pO2 115 H (80-105) Chloride (98-107) mmol/L Creatinine (0.7-1.2) mg/dL Glucose (65-100) mg/dL POC Glucose 69 L (70-105) Calcium (8.4-10.2) mg/dL Magnesium (1.7-2.3) mg/dL 10/18/16 10/18/16 10/18/16 Range/Units 06:46 06:46 06:46 WBC 20.5 H (4.5-11.0) K/mm3 RBC 2.62 L (3.65-5.03) M/mm3 Hgb 8.4 L (10.1-14.3) gm/dl Hct 26.0 L (30.3-42.9) % MCV 100 H (79-97) fl Seg Neuts % (Manual) 75.0 H (40.0-70.0) % Lymphocytes % (Manual) 9.0 L (13.4-35.0) % Monocytes % (Manual) 14.0 H (0.0-7.3) % Seg Neutrophils # Man 15.4 H (1.8-7.7) K/mm3 Monocytes # (Manual) 2.9 H (0.0-0.8) K/mm3 PT (12.2-14.9) Sec. INR (0.87-1.13) APTT (24.2-36.6) Sec. Heparin Anti-Xa Level (0.3-0.7) U.I./ml POC ABG pH (7.35-7.45) POC ABG pCO2 (35-45) POC ABG pO2 (80-105) Chloride 110.6 H (98-107) mmol/L Creatinine 1.3 H (0.7-1.2) mg/dL Glucose 153 H (65-100) mg/dL POC Glucose (70-105) Calcium 8.0 L (8.4-10.2) mg/dL Magnesium 1.6 L (1.7-2.3) mg/dL 10/18/16 10/18/16 Range/Units 07:30 11:37 WBC (4.5-11.0) K/mm3 RBC (3.65-5.03) M/mm3 Hgb (10.1-14.3) gm/dl Hct (30.3-42.9) % MCV (79-97) fl Seg Neuts % (Manual) (40.0-70.0) % Lymphocytes % (Manual) (13.4-35.0) % Monocytes % (Manual) (0.0-7.3) % Seg Neutrophils # Man (1.8-7.7) K/mm3 Monocytes # (Manual) (0.0-0.8) K/mm3 PT (12.2-14.9) Sec. INR (0.87-1.13) APTT (24.2-36.6) Sec. Heparin Anti-Xa Level (0.3-0.7) U.I./ml POC ABG pH (7.35-7.45) POC ABG pCO2 (35-45) POC ABG pO2 (80-105) Chloride (98-107) mmol/L Creatinine (0.7-1.2) mg/dL Glucose (65-100) mg/dL POC Glucose 162 H 156 H (70-105) Calcium (8.4-10.2) mg/dL Magnesium (1.7-2.3) mg/dL
[2016-10-18] MEDS: AZACTAM/NS 1 GM/50 ML 1 GM/50 ML VIAL IV SCH (15:26)
[2016-10-18] MEDS: FLAGYL 500 MG/100 ML 500 MG/100 ML BAG IV SCH (15:30)
[2016-10-19] MEDS: LOPRESSOR IV SCH ×5 (00:48→23:17)
[2016-10-19] MEDS: AZACTAM/NS 1 GM/50 ML 1 GM/50 ML VIAL IV SCH ×4 (00:53→23:19)
[2016-10-19] MEDS: MONISTAT VG SCH (00:54)
[2016-10-19] MEDS: PEPCID IV SCH ×3 (00:57→23:09)
[2016-10-19] MEDS: FLAGYL 500 MG/100 ML 500 MG/100 ML BAG IV SCH ×4 (00:57→23:09)
[2016-10-19 05:10] LABS: ISTAT Base Excess -6; ISTAT HCO3 19.1; ISTAT PCO2 32.2 (35-45); ISTAT PH 7.382 (7.35-7.45); ISTAT PO2 128 (80-105); ISTAT SO2 99; ISTAT TCO2 20
[2016-10-19] MEDS: HEPARIN/ 0.45% NACL-25,000 UNIT/500 ML 25,000 UNITS/500 ML BAG IV SCH (05:25)
[2016-10-19 05:38] LABS: Hematocrit 27.7 % (30.3-42.9); Mean Corpuscular HGB Conc 32 % (30-34); Mean Corpuscular Hemoglobin 32 pg (28-32); Mean Corpuscular Volume 100 fl (79-97); Platelet Count 273 K/mm3 (140-440); Red Blood Count 2.76 M/mm3 (3.65-5.03); Red Cell Distribution Width 13.3 % (13.2-15.2); White Blood Count 18.2 K/mm3 (4.5-11.0)
[2016-10-19 06:56] LABS: Basophils % (Manual) 0 % (0.0-1.8); Blastocytes % (Manual) 0 %
[2016-10-19 06:57] LABS: Large Platelets Rare; Smudge Cells Rare; Stomatocytes Few
[2016-10-19 06:58] LABS: Anisocytosis 1+; Diff Status Complete
[2016-10-19 07:18] LABS: BUN/Creatinine Ratio 12.3; Calcium 7.7 mg/dL (8.4-10.2); Chloride 105.5 mmol/L (98-107); Phosphorous 4.8 mg/dL (2.5-4.5); Potassium 3.7 mmol/L (3.6-5.0)
--- NOTE | 2016-10-19 07:46 | Vascular Lab Report ---
RIGHT LOWER EXTREMITY ARTERIAL DUPLEX: REASON FOR EXAM: Ischemic right leg. COMMENTS ON THE RIGHT: Triphasic waveforms are seen proximally. No waveforms are seen distally. No flow noted distal to the proximal SFA. Findings are consistent with severely compromised perfusion. Findings are inconsistent with the ability to heal distal wounds. IMPRESSION: RIGHT: Occluded proximal SFA with no identifiable flow distally. This may represent severe limb threatening ischemia...
--- NOTE | 2016-10-19 07:53 | XRay Report ---
CHEST 1 VIEW INDICATION: Followup respiratory failure. COMPARISON: 12:59 PM yesterday. FINDINGS: Portable, frontal chest radiograph, 2:04 AM, 10/19/2016 reveals stable cardiomediastinal silhouette, supporting devices, appearance of the lungs and osseous structures, providing for the difference in technique. CONCLUSION: No significant interval change. Thank you for the opportunity to participate in this patient's care.
[2016-10-19] MEDS: TYLENOL PR PRN (08:15)
[2016-10-19] MEDS: NOVOLOG SUB-Q SCH ×4 (08:20→17:09)
--- NOTE | 2016-10-19 10:51 | Progress Note ---
Subjective Date of service: 10/19/16 Principal diagnosis: respiratory failure on mechanical ventilatory support, DKA Interval history: 66-year-old lady admitted for delirium and respiratory failure, currently intubated, febrile, found to have right leg ischemia. On exam right foot cold. She has good femoral palpable pulse on the right Her arterial duplex showed right SFA occlusion. Her general condition makes her very poor candidate for any surgical intervention at this point. Plan: Continue heparin drip, offloading boots to prevent skin ulcers. WE will continue to follow. Objective - Constitutional Vitals: Vital Signs - 12hr 10/18/16 10/18/16 10/18/16 23:00 23:30 23:36 Temperature Pulse Rate 108 H 120 H 116 H Respiratory 21 25 H Rate Blood Pressure 150/63 159/70 150/63 O2 Sat by Pulse 100 100 100 Oximetry 10/19/16 10/19/16 10/19/16 00:00 00:14 00:30 Temperature 100.1 F H Pulse Rate 103 H 103 H 103 H Respiratory 20 20 20 Rate Blood Pressure 135/58 135/58 141/64 O2 Sat by Pulse 99 100 100 Oximetry 10/19/16 10/19/16 10/19/16 00:48 01:00 01:30 Temperature Pulse Rate 108 H 96 H 97 H Respiratory 21 20 Rate Blood Pressure 141/64 146/66 144/65 O2 Sat by Pulse 100 100 Oximetry 10/19/16 10/19/16 10/19/16 02:00 02:30 03:00 Temperature Pulse Rate 103 H 101 H 102 H Respiratory 20 20 17 Rate Blood Pressure 156/72 145/68 147/72 O2 Sat by Pulse 100 100 100 Oximetry 10/19/16 10/19/16 10/19/16 03:20 03:30 03:55 Temperature 99.1 F Pulse Rate 105 H 108 H Respiratory 20 Rate Blood Pressure 147/72 148/70 O2 Sat by Pulse 100 100 Oximetry 10/19/16 10/19/16 10/19/16 04:00 04:30 05:00 Temperature Pulse Rate 112 H 115 H Respiratory 20 27 H Rate Blood Pressure 153/71 153/71 166/79 O2 Sat by Pulse 100 100 Oximetry 10/19/16 10/19/16 10/19/16 05:24 05:30 06:00 Temperature Pulse Rate 112 H 94 H 91 H Respiratory 20 20 Rate Blood Pressure 166/79 135/64 130/61 O2 Sat by Pulse 100 100 Oximetry 10/19/16 10/19/16 10/19/16 06:30 07:00 07:30 Temperature Pulse Rate 108 H 108 H 114 H Respiratory 37 H 20 21 Rate Blood Pressure 157/70 156/68 165/76 O2 Sat by Pulse 100 100 100 Oximetry 10/19/16 10/19/16 10/19/16 08:00 08:30 08:49 Temperature 101.9 F H Pulse Rate 117 H 114 H 109 H Respiratory 24 22 Rate Blood Pressure 145/69 145/74 145/74 O2 Sat by Pulse 100 100 100 Oximetry 10/19/16 10/19/16 10/19/16 09:00 09:30 10:00 Temperature Pulse Rate 106 H 107 H 104 H Respiratory 12 15 17 Rate Blood Pressure 127/48 134/51 137/51 O2 Sat by Pulse 100 100 100 Oximetry 10/19/16 10:15 Temperature 99.5 F Pulse Rate Respiratory Rate Blood Pressure O2 Sat by Pulse Oximetry - Labs CBC & Chem 7: 10/19/16 05:13 10/19/16 06:30 Labs: Abnormal lab results 10/18/16 10/18/16 10/18/16 Range/Units 06:46 11:37 17:51 WBC (4.5-11.0) K/mm3 RBC (3.65-5.03) M/mm3 Hgb (10.1-14.3) gm/dl Hct (30.3-42.9) % MCV (79-97) fl Seg Neuts % (Manual) (40.0-70.0) % Lymphocytes % (Manual) (13.4-35.0) % Seg Neutrophils # Man (1.8-7.7) K/mm3 POC ABG pCO2 (35-45) POC ABG pO2 (80-105) Carbon Dioxide (22-30) mmol/L Creatinine (0.7-1.2) mg/dL Glucose (65-100) mg/dL POC Glucose 156 H 164 H (70-105) Calcium (8.4-10.2) mg/dL Phosphorus (2.5-4.5) mg/dL Magnesium 1.6 L (1.7-2.3) mg/dL 10/18/16 10/19/16 10/19/16 Range/Units 23:44 03:59 05:13 WBC 18.2 H (4.5-11.0) K/mm3 RBC 2.76 L (3.65-5.03) M/mm3 Hgb 9.0 L (10.1-14.3) gm/dl Hct 27.7 L (30.3-42.9) % MCV 100 H (79-97) fl Seg Neuts % (Manual) 76.0 H (40.0-70.0) % Lymphocytes % (Manual) 10.0 L (13.4-35.0) % Seg Neutrophils # Man 13.8 H (1.8-7.7) K/mm3 POC ABG pCO2 32.2 L (35-45) POC ABG pO2 128 H (80-105) Carbon Dioxide (22-30) mmol/L Creatinine (0.7-1.2) mg/dL Glucose (65-100) mg/dL POC Glucose 278 H (70-105) Calcium (8.4-10.2) mg/dL Phosphorus (2.5-4.5) mg/dL Magnesium (1.7-2.3) mg/dL 10/19/16 10/19/16 Range/Units 06:01 06:30 WBC (4.5-11.0) K/mm3 RBC (3.65-5.03) M/mm3 Hgb (10.1-14.3) gm/dl Hct (30.3-42.9) % MCV (79-97) fl Seg Neuts % (Manual) (40.0-70.0) % Lymphocytes % (Manual) (13.4-35.0) % Seg Neutrophils # Man (1.8-7.7) K/mm3 POC ABG pCO2 (35-45) POC ABG pO2 (80-105) Carbon Dioxide 18 L (22-30) mmol/L Creatinine 1.3 H (0.7-1.2) mg/dL Glucose 262 H (65-100) mg/dL POC Glucose 261 H (70-105) Calcium 7.7 L (8.4-10.2) mg/dL Phosphorus 4.8 H D (2.5-4.5) mg/dL Magnesium (1.7-2.3) mg/dL
--- NOTE | 2016-10-19 11:47 | Progress Note ---
Assessment and Plan - Patient Problems (1) Acute respiratory failure with hypercapnia Current Visit: Yes Status: Acute Plan to address problem: Continue with mechanical ventilatory support. VAP bundle Critical bundle addressed Agitation management Adjust ventilator settings for better gas-exchange VTE/Stress ulcer prophylaxis SAT/SBT Glycemic control (2) DKA (diabetic ketoacidoses) Current Visit: Yes Status: Acute Qualifiers: Diabetes mellitus type: D Diabetes mellitus complication detail: D Plan to address problem: Continue with accucheck and glycemic control. Monitor closely (3) Altered mental status Current Visit: Yes Status: Acute Qualifiers: Altered mental status type: A Coma depth: C Coma timing: C Plan to address problem: Probably toxic, metabolic. If no improvement in the next 48-72 hours, will get Neurology to re-assess. (4) Acidosis Current Visit: Yes Status: Acute (5) Acute on chronic renal failure Current Visit: Yes Status: Acute (6) Sepsis Current Visit: Yes Status: Acute Qualifiers: Sepsis type: S Plan to address problem: Blood cultures, urine cultures Broaden antibiotic therapy while awaiting culture results especially with worsening acidosis. Remains hemodynamically stable (7) Cold foot Current Visit: Yes Status: Acute Qualifiers: Laterality: L Plan to address problem: As per vascular service. Continue heparin infusion Subjective Date of service: 10/19/16 Principal diagnosis: respiratory failure on mechanical ventilatory support, DKA Interval history: Patient seen and examined. Vitals, labs, medications, chart reviewed Having fevers, with on-going encephalopathy and agitation Initiated on heparin infusion for arterial occlusion of right SFA Did not tolerate SBT this morning Remains critically ill on heparin infusion for acute limb ischemia, on going antibiotics therapy. Poorly controlled blood glucose Objective - Exam Narrative Exam: General: Encephalopathic, intubated, sedated HEENT: MMM, EOMI cardiac: S1-S2 heard lungs: clear to auscultation, abdomen: soft, non tender, non distended bowel sounds positive extremities: no edema clubbing or cyanosis on the left lower extremity Right cold limb Skin: no rash or lesion Neuro: awake, not obeying commands Vital Signs - 12hr 10/19/16 10/19/16 10/19/16 00:00 00:14 00:30 Temperature 100.1 F H Pulse Rate 103 H 103 H 103 H Respiratory 20 20 20 Rate Blood Pressure 135/58 135/58 141/64 O2 Sat by Pulse 99 100 100 Oximetry 03/03/17 03/03/17 03/03/17 00:48 01:00 01:30 Temperature Pulse Rate 108 H 96 H 97 H Respiratory 21 20 Rate Blood Pressure 141/64 146/66 144/65 O2 Sat by Pulse 100 100 Oximetry 10/19/16 10/19/16 10/19/16 02:00 02:30 03:00 Temperature Pulse Rate 103 H 101 H 102 H Respiratory 20 20 17 Rate Blood Pressure 156/72 145/68 147/72 O2 Sat by Pulse 100 100 100 Oximetry 10/19/16 10/19/16 10/19/16 03:20 03:30 03:55 Temperature 99.1 F Pulse Rate 105 H 108 H Respiratory 20 Rate Blood Pressure 147/72 148/70 O2 Sat by Pulse 100 100 Oximetry 10/19/16 10/19/16 10/19/16 04:00 04:30 05:00 Temperature Pulse Rate 112 H 115 H Respiratory 20 27 H Rate Blood Pressure 153/71 153/71 166/79 O2 Sat by Pulse 100 100 Oximetry 10/19/16 10/19/16 10/19/16 05:24 05:30 06:00 Temperature Pulse Rate 112 H 94 H 91 H Respiratory 20 20 Rate Blood Pressure 166/79 135/64 130/61 O2 Sat by Pulse 100 100 Oximetry 10/19/16 10/19/16 10/19/16 06:30 07:00 07:30 Temperature Pulse Rate 108 H 108 H 114 H Respiratory 37 H 20 21 Rate Blood Pressure 157/70 156/68 165/76 O2 Sat by Pulse 100 100 100 Oximetry 10/19/16 10/19/16 10/19/16 08:00 08:30 08:49 Temperature 101.9 F H Pulse Rate 117 H 114 H 109 H Respiratory 24 22 Rate Blood Pressure 145/69 145/74 145/74 O2 Sat by Pulse 100 100 100 Oximetry 10/19/16 10/19/16 10/19/16 09:00 09:30 10:00 Temperature Pulse Rate 106 H 107 H 104 H Respiratory 12 15 17 Rate Blood Pressure 127/48 134/51 137/51 O2 Sat by Pulse 100 100 100 Oximetry 10/19/16 10:15 Temperature 99.5 F Pulse Rate Respiratory Rate Blood Pressure O2 Sat by Pulse Oximetry Constitutional: no acute distress, other (sedated) Eyes: non-icteric ENT: oropharynx moist Neck: supple, no lymphadenopathy Effort: normal, mildly labored Ascultation: Bilateral: diminished breath sounds, rales Cardiovascular: regular rate and rhythm Gastrointestinal: normoactive bowel sounds, soft, non-tender, non-distended Integumentary: normal Extremities: no cyanosis, no edema, pulses normal (Cold right foot), no ischemia or petechiae Neurologic: unable to assess Psychiatric: other (sedated) CBC and BMP: 10/21/16 05:00 10/21/16 Unknown ABG, PT/INR, D-dimer: ABG POC ABG pH 7.382 (7.35-7.45) 10/19/16 03:59 POC ABG pCO2 32.2 (35-45) L 10/19/16 03:59 POC ABG pO2 128 (80-105) H 10/19/16 03:59 POC ABG HCO3 19.1 10/19/16 03:59 POC ABG Total CO2 20 10/19/16 03:59 POC ABG O2 Sat 99 10/19/16 03:59 PT/INR, D-dimer PT 16.4 Sec. (12.2-14.9) H 10/17/16 16:07 INR 1.33 (0.87-1.13) H 10/17/16 16:07 Abnormal lab findings: Abnormal Labs 10/13/16 10/13/16 10/13/16 06:38 06:38 07:23 WBC RBC Hgb Hct MCV RDW Plt Count Lymph % (Auto) [place] % (Auto) [place] # Seg Neutrophils % Seg Neuts % (Manual) Lymphocytes % (Manual) Monocytes % (Manual) Seg Neutrophils # Seg Neutrophils # Man Lymphocytes # (Manual) Monocytes # (Manual) PT INR APTT Heparin Anti-Xa Level POC ABG pH POC ABG pCO2 POC ABG pO2 Sodium Potassium 6.2 H* Chloride Carbon Dioxide 8 L* BUN 85 H Creatinine 2.8 H Glucose 602 H* POC Glucose 495 H Calcium 7.9 L Phosphorus 6.9 H D Magnesium 3.0 H AST C-Reactive Protein Total Protein Albumin Lipase Urine WBC (Auto) Urine Chloride Urine Total Protein 10/13/16 10/13/16 10/13/16 08:49 08:55 10:12 WBC RBC Hgb Hct MCV RDW Plt Count Lymph % (Auto) [place] % (Auto) [place] # Seg Neutrophils % Seg Neuts % (Manual) Lymphocytes % (Manual) Monocytes % (Manual) Seg Neutrophils # Seg Neutrophils # Man Lymphocytes # (Manual) Monocytes # (Manual) PT INR APTT Heparin Anti-Xa Level POC ABG pH POC ABG pCO2 POC ABG pO2 Sodium Potassium 5.6 H Chloride Carbon Dioxide 11 L BUN 77 H Creatinine 2.7 H Glucose 457 H POC Glucose > 500 H 424 H Calcium 8.0 L Phosphorus Magnesium AST C-Reactive Protein Total Protein Albumin Lipase Urine WBC (Auto) Urine Chloride Urine Total Protein 10/13/16 10/13/16 10/13/16 10:44 11:22 12:20 WBC RBC Hgb Hct MCV RDW Plt Count Lymph % (Auto) [place] % (Auto) [place] # Seg Neutrophils % Seg Neuts % (Manual) Lymphocytes % (Manual) Monocytes % (Manual) Seg Neutrophils # Seg Neutrophils # Man Lymphocytes # (Manual) Monocytes # (Manual) PT INR APTT Heparin Anti-Xa Level POC ABG pH POC ABG pCO2 POC ABG pO2 Sodium Potassium 5.4 H Chloride Carbon Dioxide 14 L BUN 72 H Creatinine 2.6 H Glucose 383 H POC Glucose 391 H 313 H Calcium 8.2 L Phosphorus Magnesium AST C-Reactive Protein Total Protein Albumin Lipase Urine WBC (Auto) Urine Chloride Urine Total Protein 10/13/16 10/13/16 10/13/16 13:32 14:44 15:57 WBC RBC Hgb Hct MCV RDW Plt Count Lymph % (Auto) [place] % (Auto) [place] # Seg Neutrophils % Seg Neuts % (Manual) Lymphocytes % (Manual) Monocytes % (Manual) Seg Neutrophils # Seg Neutrophils # Man Lymphocytes # (Manual) Monocytes # (Manual) PT INR APTT Heparin Anti-Xa Level POC ABG pH POC ABG pCO2 POC ABG pO2 Sodium Potassium Chloride Carbon Dioxide BUN Creatinine Glucose POC Glucose 296 H 210 H 190 H Calcium Phosphorus Magnesium AST C-Reactive Protein Total Protein Albumin Lipase Urine WBC (Auto) Urine Chloride Urine Total Protein 10/13/16 10/13/16 10/13/16 16:14 16:14 17:17 WBC RBC Hgb Hct MCV RDW Plt Count Lymph % (Auto) [place] % (Auto) [place] # Seg Neutrophils % Seg Neuts % (Manual) Lymphocytes % (Manual) Monocytes % (Manual) Seg Neutrophils # Seg Neutrophils # Man Lymphocytes # (Manual) Monocytes # (Manual) PT INR APTT Heparin Anti-Xa Level POC ABG pH POC ABG pCO2 POC ABG pO2 Sodium Potassium Chloride Carbon Dioxide 17 L BUN 58 H Creatinine 1.8 H Glucose 172 H POC Glucose 193 H Calcium 7.7 L Phosphorus Magnesium AST C-Reactive Protein 10.50 H Total Protein Albumin Lipase Urine WBC (Auto) Urine Chloride Urine Total Protein 10/13/16 10/13/16 10/13/16 17:55 18:32 19:41 WBC RBC Hgb Hct MCV RDW Plt Count Lymph % (Auto) [place] % (Auto) [place] # Seg Neutrophils % Seg Neuts % (Manual) Lymphocytes % (Manual) Monocytes % (Manual) Seg Neutrophils # Seg Neutrophils # Man Lymphocytes # (Manual) Monocytes # (Manual) PT INR APTT Heparin Anti-Xa Level POC ABG pH POC ABG pCO2 30.6 L POC ABG pO2 218 H Sodium Potassium Chloride Carbon Dioxide BUN Creatinine Glucose POC Glucose 192 H 177 H Calcium Phosphorus Magnesium AST C-Reactive Protein Total Protein Albumin Lipase Urine WBC (Auto) Urine Chloride Urine Total Protein 10/13/16 10/13/16 10/13/16 20:54 22:07 23:13 WBC RBC Hgb Hct MCV RDW Plt Count Lymph % (Auto) [place] % (Auto) [place] # Seg Neutrophils % Seg Neuts % (Manual) Lymphocytes % (Manual) Monocytes % (Manual) Seg Neutrophils # Seg Neutrophils # Man Lymphocytes # (Manual) Monocytes # (Manual) PT INR APTT Heparin Anti-Xa Level POC ABG pH POC ABG pCO2 POC ABG pO2 Sodium Potassium Chloride Carbon Dioxide BUN Creatinine Glucose POC Glucose 178 H 160 H 168 H Calcium Phosphorus Magnesium AST C-Reactive Protein Total Protein Albumin Lipase Urine WBC (Auto) Urine Chloride Urine Total Protein 10/13/16 10/13/16 10/14/16 23:25 Unknown 00:21 WBC RBC Hgb Hct MCV RDW Plt Count Lymph % (Auto) [place] % (Auto) [place] # Seg Neutrophils % Seg Neuts % (Manual) Lymphocytes % (Manual) Monocytes % (Manual) Seg Neutrophils # Seg Neutrophils # Man Lymphocytes # (Manual) Monocytes # (Manual) PT INR APTT Heparin Anti-Xa Level POC ABG pH POC ABG pCO2 POC ABG pO2 Sodium 148 H Potassium Chloride 114.6 H Carbon Dioxide 17 L BUN 56 H Creatinine 1.6 H Glucose 151 H POC Glucose 171 H Calcium 7.8 L Phosphorus Magnesium AST C-Reactive Protein Total Protein Albumin Lipase Urine WBC (Auto) Urine Chloride 10.0 L Urine Total Protein < 4 L 10/14/16 10/14/16 10/14/16 01:22 02:29 03:30 WBC RBC Hgb Hct MCV RDW Plt Count Lymph % (Auto) [place] % (Auto) [place] # Seg Neutrophils % Seg Neuts % (Manual) Lymphocytes % (Manual) Monocytes % (Manual) Seg Neutrophils # Seg Neutrophils # Man Lymphocytes # (Manual) Monocytes # (Manual) PT INR APTT Heparin Anti-Xa Level POC ABG pH POC ABG pCO2 POC ABG pO2 Sodium Potassium Chloride Carbon Dioxide BUN Creatinine Glucose POC Glucose 144 H 136 H 143 H Calcium Phosphorus Magnesium AST C-Reactive Protein Total Protein Albumin Lipase Urine WBC (Auto) Urine Chloride Urine Total Protein 10/14/16 10/14/16 10/14/16 04:28 05:16 05:44 WBC RBC Hgb Hct MCV RDW Plt Count Lymph % (Auto) [place] % (Auto) [place] # Seg Neutrophils % Seg Neuts % (Manual) Lymphocytes % (Manual) Monocytes % (Manual) Seg Neutrophils # Seg Neutrophils # Man Lymphocytes # (Manual) Monocytes # (Manual) PT INR APTT Heparin Anti-Xa Level POC ABG pH POC ABG pCO2 28.2 L POC ABG pO2 125 H Sodium Potassium Chloride Carbon Dioxide BUN Creatinine Glucose POC Glucose 133 H 160 H Calcium Phosphorus Magnesium AST C-Reactive Protein Total Protein Albumin Lipase Urine WBC (Auto) Urine Chloride Urine Total Protein 10/14/16 10/14/16 10/14/16 06:12 06:45 07:03 WBC RBC Hgb Hct MCV RDW Plt Count Lymph % (Auto) [place] % (Auto) [place] # Seg Neutrophils % Seg Neuts % (Manual) Lymphocytes % (Manual) Monocytes % (Manual) Seg Neutrophils # Seg Neutrophils # Man Lymphocytes # (Manual) Monocytes # (Manual) PT INR APTT Heparin Anti-Xa Level POC ABG pH POC ABG pCO2 POC ABG pO2 Sodium 149 H Potassium Chloride 115.4 H Carbon Dioxide 17 L BUN 45 H Creatinine 1.5 H Glucose 139 H POC Glucose 149 H Calcium 7.4 L Phosphorus 1.0 L D Magnesium AST C-Reactive Protein Total Protein Albumin Lipase Urine WBC (Auto) Urine Chloride Urine Total Protein 10/14/16 10/14/16 10/14/16 07:03 08:02 09:16 WBC RBC Hgb Hct MCV RDW Plt Count Lymph % (Auto) [place] % (Auto) [place] # Seg Neutrophils % Seg Neuts % (Manual) Lymphocytes % (Manual) Monocytes % (Manual) Seg Neutrophils # Seg Neutrophils # Man Lymphocytes # (Manual) Monocytes # (Manual) PT INR APTT Heparin Anti-Xa Level POC ABG pH POC ABG pCO2 POC ABG pO2 Sodium Potassium Chloride Carbon Dioxide BUN Creatinine Glucose POC Glucose 156 H 158 H Calcium Phosphorus Magnesium AST C-Reactive Protein Total Protein Albumin Lipase 738 H Urine WBC (Auto) Urine Chloride Urine Total Protein 10/14/16 10/14/16 10/14/16 10:26 11:03 11:57 WBC RBC Hgb Hct MCV RDW Plt Count Lymph % (Auto) [place] % (Auto) [place] # Seg Neutrophils % Seg Neuts % (Manual) Lymphocytes % (Manual) Monocytes % (Manual) Seg Neutrophils # Seg Neutrophils # Man Lymphocytes # (Manual) Monocytes # (Manual) PT INR APTT Heparin Anti-Xa Level POC ABG pH 7.198 L POC ABG pCO2 47.5 H POC ABG pO2 Sodium Potassium Chloride Carbon Dioxide BUN Creatinine Glucose POC Glucose 174 H 189 H Calcium Phosphorus Magnesium AST C-Reactive Protein Total Protein Albumin Lipase Urine WBC (Auto) Urine Chloride Urine Total Protein 10/14/16 10/14/16 10/14/16 12:02 12:02 13:11 WBC 13.4 H RBC 3.60 L Hgb Hct MCV 98 H D RDW 13.1 L Plt Count Lymph % (Auto) [place] % (Auto) [place] # Seg Neutrophils % Seg Neuts % (Manual) Lymphocytes % (Manual) Monocytes % (Manual) Seg Neutrophils # Seg Neutrophils # Man Lymphocytes # (Manual) Monocytes # (Manual) PT INR APTT Heparin Anti-Xa Level POC ABG pH POC ABG pCO2 POC ABG pO2 Sodium Potassium Chloride 110.7 H Carbon Dioxide 19 L BUN 38 H Creatinine 1.4 H Glucose 182 H POC Glucose 173 H Calcium 7.5 L Phosphorus Magnesium AST C-Reactive Protein Total Protein Albumin Lipase Urine WBC (Auto) Urine Chloride Urine Total Protein 10/14/16 10/14/16 10/14/16 14:24 15:31 16:36 WBC RBC Hgb Hct MCV RDW Plt Count Lymph % (Auto) [place] % (Auto) [place] # Seg Neutrophils % Seg Neuts % (Manual) Lymphocytes % (Manual) Monocytes % (Manual) Seg Neutrophils # Seg Neutrophils # Man Lymphocytes # (Manual) Monocytes # (Manual) PT INR APTT Heparin Anti-Xa Level POC ABG pH POC ABG pCO2 POC ABG pO2 Sodium Potassium Chloride Carbon Dioxide BUN Creatinine Glucose POC Glucose 123 H 124 H 156 H Calcium Phosphorus Magnesium AST C-Reactive Protein Total Protein Albumin Lipase Urine WBC (Auto) Urine Chloride Urine Total Protein 10/14/16 10/14/16 10/14/16 17:43 19:00 20:08 WBC RBC Hgb Hct MCV RDW Plt Count Lymph % (Auto) [place] % (Auto) [place] # Seg Neutrophils % Seg Neuts % (Manual) Lymphocytes % (Manual) Monocytes % (Manual) Seg Neutrophils # Seg Neutrophils # Man Lymphocytes # (Manual) Monocytes # (Manual) PT INR APTT Heparin Anti-Xa Level POC ABG pH POC ABG pCO2 POC ABG pO2 Sodium Potassium Chloride Carbon Dioxide BUN Creatinine Glucose POC Glucose 154 H 123 H 138 H Calcium Phosphorus Magnesium AST C-Reactive Protein Total Protein Albumin Lipase Urine WBC (Auto) Urine Chloride Urine Total Protein 10/14/16 10/14/16 10/14/16 21:17 22:25 23:37 WBC RBC Hgb Hct MCV RDW Plt Count Lymph % (Auto) [place] % (Auto) [place] # Seg Neutrophils % Seg Neuts % (Manual) Lymphocytes % (Manual) Monocytes % (Manual) Seg Neutrophils # Seg Neutrophils # Man Lymphocytes # (Manual) Monocytes # (Manual) PT INR APTT Heparin Anti-Xa Level POC ABG pH POC ABG pCO2 POC ABG pO2 Sodium Potassium Chloride Carbon Dioxide BUN Creatinine Glucose POC Glucose 148 H 132 H 137 H Calcium Phosphorus Magnesium AST C-Reactive Protein Total Protein Albumin Lipase Urine WBC (Auto) Urine Chloride Urine Total Protein 10/15/16 10/15/16 10/15/16 00:49 01:53 03:06 WBC RBC Hgb Hct MCV RDW Plt Count Lymph % (Auto) [place] % (Auto) [place] # Seg Neutrophils % Seg Neuts % (Manual) Lymphocytes % (Manual) Monocytes % (Manual) Seg Neutrophils # Seg Neutrophils # Man Lymphocytes # (Manual) Monocytes # (Manual) PT INR APTT Heparin Anti-Xa Level POC ABG pH POC ABG pCO2 POC ABG pO2 Sodium Potassium Chloride Carbon Dioxide BUN Creatinine Glucose POC Glucose 132 H 134 H 134 H Calcium Phosphorus Magnesium AST C-Reactive Protein Total Protein Albumin Lipase Urine WBC (Auto) Urine Chloride Urine Total Protein 10/15/16 10/15/16 10/15/16 04:40 04:46 06:21 WBC RBC Hgb Hct MCV RDW Plt Count Lymph % (Auto) [place] % (Auto) [place] # Seg Neutrophils % Seg Neuts % (Manual) Lymphocytes % (Manual) Monocytes % (Manual) Seg Neutrophils # Seg Neutrophils # Man Lymphocytes # (Manual) Monocytes # (Manual) PT INR APTT Heparin Anti-Xa Level POC ABG pH POC ABG pCO2 30.7 L POC ABG pO2 108 H Sodium Potassium Chloride 109.0 H Carbon Dioxide 17 L BUN 27 H Creatinine Glucose 124 H POC Glucose 160 H Calcium 7.5 L Phosphorus Magnesium AST 79 H C-Reactive Protein Total Protein 5.5 L Albumin 3.0 L Lipase Urine WBC (Auto) Urine Chloride Urine Total Protein 10/15/16 10/15/16 10/15/16 07:12 08:01 09:03 WBC RBC Hgb Hct MCV RDW Plt Count Lymph % (Auto) [place] % (Auto) [place] # Seg Neutrophils % Seg Neuts % (Manual) Lymphocytes % (Manual) Monocytes % (Manual) Seg Neutrophils # Seg Neutrophils # Man Lymphocytes # (Manual) Monocytes # (Manual) PT INR APTT Heparin Anti-Xa Level POC ABG pH POC ABG pCO2 POC ABG pO2 Sodium Potassium Chloride Carbon Dioxide BUN Creatinine Glucose POC Glucose 179 H 187 H 165 H Calcium Phosphorus Magnesium AST C-Reactive Protein Total Protein Albumin Lipase Urine WBC (Auto) Urine Chloride Urine Total Protein 10/15/16 10/15/16 10/15/16 10:06 10:06 10:07 WBC 12.1 H RBC 3.01 L Hgb 9.7 L Hct 29.6 L MCV 98 H RDW Plt Count 129 L Lymph % (Auto) [place] % (Auto) [place] # Seg Neutrophils % Seg Neuts % (Manual) Lymphocytes % (Manual) Monocytes % (Manual) Seg Neutrophils # Seg Neutrophils # Man Lymphocytes # (Manual) Monocytes # (Manual) PT INR APTT Heparin Anti-Xa Level POC ABG pH POC ABG pCO2 POC ABG pO2 Sodium Potassium 3.2 L D Chloride 109.6 H Carbon Dioxide 18 L BUN 22 H Creatinine Glucose 127 H POC Glucose 147 H Calcium 7.0 L Phosphorus Magnesium AST C-Reactive Protein Total Protein Albumin Lipase Urine WBC (Auto) Urine Chloride Urine Total Protein 10/15/16 10/15/16 10/15/16 11:05 11:06 11:57 WBC RBC Hgb Hct MCV RDW Plt Count Lymph % (Auto) [place] % (Auto) [place] # Seg Neutrophils % Seg Neuts % (Manual) Lymphocytes % (Manual) Monocytes % (Manual) Seg Neutrophils # Seg Neutrophils # Man Lymphocytes # (Manual) Monocytes # (Manual) PT INR APTT Heparin Anti-Xa Level POC ABG pH 7.305 L POC ABG pCO2 POC ABG pO2 Sodium Potassium Chloride Carbon Dioxide BUN Creatinine Glucose POC Glucose 145 H Calcium Phosphorus Magnesium AST C-Reactive Protein Total Protein Albumin Lipase Urine WBC (Auto) 7.0 H Urine Chloride Urine Total Protein 10/15/16 10/15/16 10/15/16 12:04 13:59 15:24 WBC RBC Hgb Hct MCV RDW Plt Count Lymph % (Auto) [place] % (Auto) [place] # Seg Neutrophils % Seg Neuts % (Manual) Lymphocytes % (Manual) Monocytes % (Manual) Seg Neutrophils # Seg Neutrophils # Man Lymphocytes # (Manual) Monocytes # (Manual) PT INR APTT Heparin Anti-Xa Level POC ABG pH POC ABG pCO2 POC ABG pO2 Sodium Potassium Chloride Carbon Dioxide BUN Creatinine Glucose POC Glucose 123 H 147 H 153 H Calcium Phosphorus Magnesium AST C-Reactive Protein Total Protein Albumin Lipase Urine WBC (Auto) Urine Chloride Urine Total Protein 10/15/16 10/15/16 10/15/16 16:30 17:34 18:30 WBC RBC Hgb Hct MCV RDW Plt Count Lymph % (Auto) [place] % (Auto) [place] # Seg Neutrophils % Seg Neuts % (Manual) Lymphocytes % (Manual) Monocytes % (Manual) Seg Neutrophils # Seg Neutrophils # Man Lymphocytes # (Manual) Monocytes # (Manual) PT INR APTT Heparin Anti-Xa Level POC ABG pH POC ABG pCO2 POC ABG pO2 Sodium Potassium Chloride Carbon Dioxide BUN Creatinine Glucose POC Glucose 223 H 236 H 164 H Calcium Phosphorus Magnesium AST C-Reactive Protein Total Protein Albumin Lipase Urine WBC (Auto) Urine Chloride Urine Total Protein 10/15/16 10/15/16 10/15/16 19:14 20:31 21:23 WBC RBC Hgb Hct MCV RDW Plt Count Lymph % (Auto) [place] % (Auto) [place] # Seg Neutrophils % Seg Neuts % (Manual) Lymphocytes % (Manual) Monocytes % (Manual) Seg Neutrophils # Seg Neutrophils # Man Lymphocytes # (Manual) Monocytes # (Manual) PT INR APTT Heparin Anti-Xa Level POC ABG pH POC ABG pCO2 POC ABG pO2 Sodium Potassium Chloride Carbon Dioxide BUN Creatinine Glucose POC Glucose 138 H 158 H 158 H Calcium Phosphorus Magnesium AST C-Reactive Protein Total Protein Albumin Lipase Urine WBC (Auto) Urine Chloride Urine Total Protein 10/15/16 10/15/16 10/16/16 22:04 22:57 00:11 WBC RBC Hgb Hct MCV RDW Plt Count Lymph % (Auto) [place] % (Auto) [place] # Seg Neutrophils % Seg Neuts % (Manual) Lymphocytes % (Manual) Monocytes % (Manual) Seg Neutrophils # Seg Neutrophils # Man Lymphocytes # (Manual) Monocytes # (Manual) PT INR APTT Heparin Anti-Xa Level POC ABG pH POC ABG pCO2 POC ABG pO2 Sodium Potassium Chloride Carbon Dioxide BUN Creatinine Glucose POC Glucose 168 H 213 H 166 H Calcium Phosphorus Magnesium AST C-Reactive Protein Total Protein Albumin Lipase Urine WBC (Auto) Urine Chloride Urine Total Protein 10/16/16 10/16/16 10/16/16 01:16 02:32 03:38 WBC RBC Hgb Hct MCV RDW Plt Count Lymph % (Auto) [place] % (Auto) [place] # Seg Neutrophils % Seg Neuts % (Manual) Lymphocytes % (Manual) Monocytes % (Manual) Seg Neutrophils # Seg Neutrophils # Man Lymphocytes # (Manual) Monocytes # (Manual) PT INR APTT Heparin Anti-Xa Level POC ABG pH POC ABG pCO2 POC ABG pO2 Sodium Potassium Chloride Carbon Dioxide BUN Creatinine Glucose POC Glucose 171 H 164 H 147 H Calcium Phosphorus Magnesium AST C-Reactive Protein Total Protein Albumin Lipase Urine WBC (Auto) Urine Chloride Urine Total Protein 10/16/16 10/16/16 10/16/16 04:14 04:14 04:49 WBC RBC Hgb Hct MCV RDW Plt Count Lymph % (Auto) [place] % (Auto) [place] # Seg Neutrophils % Seg Neuts % (Manual) Lymphocytes % (Manual) Monocytes % (Manual) Seg Neutrophils # Seg Neutrophils # Man Lymphocytes # (Manual) Monocytes # (Manual) PT INR APTT Heparin Anti-Xa Level POC ABG pH POC ABG pCO2 POC ABG pO2 Sodium 147 H Potassium Chloride 110.9 H Carbon Dioxide 19 L BUN Creatinine Glucose 139 H POC Glucose 144 H Calcium 7.3 L Phosphorus 2.3 L Magnesium AST C-Reactive Protein Total Protein Albumin Lipase 143 H Urine WBC (Auto) Urine Chloride Urine Total Protein 10/16/16 10/16/16 10/16/16 05:03 05:41 05:58 WBC 16.5 H RBC 3.36 L Hgb Hct MCV 98 H RDW 13.1 L Plt Count Lymph % (Auto) 8.5 L [place] % (Auto) 7.6 H [place] # 1.3 H Seg Neutrophils % 83.3 H Seg Neuts % (Manual) Lymphocytes % (Manual) Monocytes % (Manual) Seg Neutrophils # 13.8 H Seg Neutrophils # Man Lymphocytes # (Manual) Monocytes # (Manual) PT INR APTT Heparin Anti-Xa Level POC ABG pH POC ABG pCO2 30.7 L POC ABG pO2 128 H Sodium Potassium Chloride Carbon Dioxide BUN Creatinine Glucose POC Glucose 131 H Calcium Phosphorus Magnesium AST C-Reactive Protein Total Protein Albumin Lipase Urine WBC (Auto) Urine Chloride Urine Total Protein 10/16/16 10/16/16 10/16/16 06:32 09:27 09:35 WBC RBC Hgb Hct MCV RDW Plt Count Lymph % (Auto) [place] % (Auto) [place] # Seg Neutrophils % Seg Neuts % (Manual) Lymphocytes % (Manual) Monocytes % (Manual) Seg Neutrophils # Seg Neutrophils # Man Lymphocytes # (Manual) Monocytes # (Manual) PT INR APTT Heparin Anti-Xa Level POC ABG pH POC ABG pCO2 32.8 L POC ABG pO2 137 H Sodium Potassium Chloride Carbon Dioxide BUN Creatinine Glucose POC Glucose 121 H 150 H Calcium Phosphorus Magnesium AST C-Reactive Protein Total Protein Albumin Lipase Urine WBC (Auto) Urine Chloride Urine Total Protein 10/16/16 10/16/16 10/16/16 10:47 13:27 14:24 WBC RBC Hgb Hct MCV RDW Plt Count Lymph % (Auto) [place] % (Auto) [place] # Seg Neutrophils % Seg Neuts % (Manual) Lymphocytes % (Manual) Monocytes % (Manual) Seg Neutrophils # Seg Neutrophils # Man Lymphocytes # (Manual) Monocytes # (Manual) PT INR APTT Heparin Anti-Xa Level POC ABG pH POC ABG pCO2 POC ABG pO2 Sodium Potassium Chloride Carbon Dioxide BUN Creatinine Glucose POC Glucose 184 H 171 H 174 H Calcium Phosphorus Magnesium AST C-Reactive Protein Total Protein Albumin Lipase Urine WBC (Auto) Urine Chloride Urine Total Protein 10/16/16 10/16/16 10/16/16 15:48 16:26 18:17 WBC RBC Hgb Hct MCV RDW Plt Count Lymph % (Auto) [place] % (Auto) [place] # Seg Neutrophils % Seg Neuts % (Manual) Lymphocytes % (Manual) Monocytes % (Manual) Seg Neutrophils # Seg Neutrophils # Man Lymphocytes # (Manual) Monocytes # (Manual) PT INR APTT Heparin Anti-Xa Level POC ABG pH POC ABG pCO2 POC ABG pO2 Sodium Potassium Chloride Carbon Dioxide BUN Creatinine Glucose POC Glucose 205 H 204 H 234 H Calcium Phosphorus Magnesium AST C-Reactive Protein Total Protein Albumin Lipase Urine WBC (Auto) Urine Chloride Urine Total Protein 10/16/16 10/16/16 10/16/16 19:40 20:33 21:36 WBC RBC Hgb Hct MCV RDW Plt Count Lymph % (Auto) [place] % (Auto) [place] # Seg Neutrophils % Seg Neuts % (Manual) Lymphocytes % (Manual) Monocytes % (Manual) Seg Neutrophils # Seg Neutrophils # Man Lymphocytes # (Manual) Monocytes # (Manual) PT INR APTT Heparin Anti-Xa Level POC ABG pH POC ABG pCO2 POC ABG pO2 Sodium Potassium Chloride Carbon Dioxide BUN Creatinine Glucose POC Glucose 167 H 153 H 158 H Calcium Phosphorus Magnesium AST C-Reactive Protein Total Protein Albumin Lipase Urine WBC (Auto) Urine Chloride Urine Total Protein 10/16/16 10/16/16 10/17/16 22:54 23:48 00:47 WBC RBC Hgb Hct MCV RDW Plt Count Lymph % (Auto) [place] % (Auto) [place] # Seg Neutrophils % Seg Neuts % (Manual) Lymphocytes % (Manual) Monocytes % (Manual) Seg Neutrophils # Seg Neutrophils # Man Lymphocytes # (Manual) Monocytes # (Manual) PT INR APTT Heparin Anti-Xa Level POC ABG pH POC ABG pCO2 POC ABG pO2 Sodium Potassium Chloride Carbon Dioxide BUN Creatinine Glucose POC Glucose 180 H 207 H 196 H Calcium Phosphorus Magnesium AST C-Reactive Protein Total Protein Albumin Lipase Urine WBC (Auto) Urine Chloride Urine Total Protein 10/17/16 10/17/16 10/17/16 01:57 02:49 03:50 WBC RBC Hgb Hct MCV RDW Plt Count Lymph % (Auto) [place] % (Auto) [place] # Seg Neutrophils % Seg Neuts % (Manual) Lymphocytes % (Manual) Monocytes % (Manual) Seg Neutrophils # Seg Neutrophils # Man Lymphocytes # (Manual) Monocytes # (Manual) PT INR APTT Heparin Anti-Xa Level POC ABG pH POC ABG pCO2 POC ABG pO2 Sodium Potassium Chloride Carbon Dioxide BUN Creatinine Glucose POC Glucose 180 H 151 H 106 H Calcium Phosphorus Magnesium AST C-Reactive Protein Total Protein Albumin Lipase Urine WBC (Auto) Urine Chloride Urine Total Protein 10/17/16 10/17/16 10/17/16 04:59 06:03 06:35 WBC RBC Hgb Hct MCV RDW Plt Count Lymph % (Auto) [place] % (Auto) [place] # Seg Neutrophils % Seg Neuts % (Manual) Lymphocytes % (Manual) Monocytes % (Manual) Seg Neutrophils # Seg Neutrophils # Man Lymphocytes # (Manual) Monocytes # (Manual) PT INR APTT Heparin Anti-Xa Level POC ABG pH 7.453 H POC ABG pCO2 30.1 L POC ABG pO2 111 H Sodium Potassium Chloride Carbon Dioxide BUN Creatinine Glucose POC Glucose 145 H 157 H Calcium Phosphorus Magnesium AST C-Reactive Protein Total Protein Albumin Lipase Urine WBC (Auto) Urine Chloride Urine Total Protein 10/17/16 10/17/16 10/17/16 07:08 07:11 08:01 WBC RBC Hgb Hct MCV RDW Plt Count Lymph % (Auto) [place] % (Auto) [place] # Seg Neutrophils % Seg Neuts % (Manual) Lymphocytes % (Manual) Monocytes % (Manual) Seg Neutrophils # Seg Neutrophils # Man Lymphocytes # (Manual) Monocytes # (Manual) PT INR APTT Heparin Anti-Xa Level POC ABG pH POC ABG pCO2 POC ABG pO2 Sodium 147 H Potassium Chloride 113.8 H Carbon Dioxide 19 L BUN Creatinine Glucose 136 H POC Glucose 136 H 152 H Calcium 7.7 L Phosphorus Magnesium AST C-Reactive Protein Total Protein Albumin Lipase Urine WBC (Auto) Urine Chloride Urine Total Protein 10/17/16 10/17/16 10/17/16 08:23 09:17 09:53 WBC 18.1 H RBC 3.01 L Hgb 9.7 L Hct 29.4 L MCV 98 H RDW Plt Count 116 L Lymph % (Auto) [place] % (Auto) [place] # Seg Neutrophils % Seg Neuts % (Manual) 77.0 H Lymphocytes % (Manual) 4.0 L Monocytes % (Manual) 12.0 H Seg Neutrophils # Seg Neutrophils # Man 13.9 H Lymphocytes # (Manual) 0.7 L Monocytes # (Manual) 2.2 H PT INR APTT Heparin Anti-Xa Level POC ABG pH POC ABG pCO2 POC ABG pO2 Sodium Potassium Chloride Carbon Dioxide BUN Creatinine Glucose POC Glucose 148 H 137 H Calcium Phosphorus Magnesium AST C-Reactive Protein Total Protein Albumin Lipase Urine WBC (Auto) Urine Chloride Urine Total Protein 10/17/16 10/17/16 10/17/16 11:43 16:07 17:42 WBC RBC Hgb Hct MCV RDW Plt Count Lymph % (Auto) [place] % (Auto) [place] # Seg Neutrophils % Seg Neuts % (Manual) Lymphocytes % (Manual) Monocytes % (Manual) Seg Neutrophils # Seg Neutrophils # Man Lymphocytes # (Manual) Monocytes # (Manual) PT 16.4 H INR 1.33 H APTT 38.8 H Heparin Anti-Xa Level POC ABG pH POC ABG pCO2 POC ABG pO2 Sodium Potassium Chloride Carbon Dioxide BUN Creatinine Glucose POC Glucose 179 H 153 H Calcium Phosphorus Magnesium AST C-Reactive Protein Total Protein Albumin Lipase Urine WBC (Auto) Urine Chloride Urine Total Protein 10/17/16 10/18/16 10/18/16 22:54 04:37 05:39 WBC RBC Hgb Hct MCV RDW Plt Count Lymph % (Auto) [place] % (Auto) [place] # Seg Neutrophils % Seg Neuts % (Manual) Lymphocytes % (Manual) Monocytes % (Manual) Seg Neutrophils # Seg Neutrophils # Man Lymphocytes # (Manual) Monocytes # (Manual) PT INR APTT Heparin Anti-Xa Level 0.27 L POC ABG pH 7.454 H POC ABG pCO2 30.8 L POC ABG pO2 115 H Sodium Potassium Chloride Carbon Dioxide BUN Creatinine Glucose POC Glucose 69 L Calcium Phosphorus Magnesium AST C-Reactive Protein Total Protein Albumin Lipase Urine WBC (Auto) Urine Chloride Urine Total Protein 10/18/16 10/18/16 10/18/16 06:46 06:46 06:46 WBC 20.5 H RBC 2.62 L Hgb 8.4 L Hct 26.0 L MCV 100 H RDW Plt Count Lymph % (Auto) [place] % (Auto) [place] # Seg Neutrophils % Seg Neuts % (Manual) 75.0 H Lymphocytes % (Manual) 9.0 L Monocytes % (Manual) 14.0 H Seg Neutrophils # Seg Neutrophils # Man 15.4 H Lymphocytes # (Manual) Monocytes # (Manual) 2.9 H PT INR APTT Heparin Anti-Xa Level POC ABG pH POC ABG pCO2 POC ABG pO2 Sodium Potassium Chloride 110.6 H Carbon Dioxide BUN Creatinine 1.3 H Glucose 153 H POC Glucose Calcium 8.0 L Phosphorus Magnesium 1.6 L AST C-Reactive Protein Total Protein Albumin Lipase Urine WBC (Auto) Urine Chloride Urine Total Protein 10/18/16 10/18/16 10/18/16 07:30 11:37 17:51 WBC RBC Hgb Hct MCV RDW Plt Count Lymph % (Auto) [place] % (Auto) [place] # Seg Neutrophils % Seg Neuts % (Manual) Lymphocytes % (Manual) Monocytes % (Manual) Seg Neutrophils # Seg Neutrophils # Man Lymphocytes # (Manual) Monocytes # (Manual) PT INR APTT Heparin Anti-Xa Level POC ABG pH POC ABG pCO2 POC ABG pO2 Sodium Potassium Chloride Carbon Dioxide BUN Creatinine Glucose POC Glucose 162 H 156 H 164 H Calcium Phosphorus Magnesium AST C-Reactive Protein Total Protein Albumin Lipase Urine WBC (Auto) Urine Chloride Urine Total Protein 10/18/16 10/19/16 10/19/16 23:44 03:59 05:13 WBC 18.2 H RBC 2.76 L Hgb 9.0 L Hct 27.7 L MCV 100 H RDW Plt Count Lymph % (Auto) [place] % (Auto) [place] # Seg Neutrophils % Seg Neuts % (Manual) 76.0 H Lymphocytes % (Manual) 10.0 L Monocytes % (Manual) Seg Neutrophils # Seg Neutrophils # Man 13.8 H Lymphocytes # (Manual) Monocytes # (Manual) PT INR APTT Heparin Anti-Xa Level POC ABG pH POC ABG pCO2 32.2 L POC ABG pO2 128 H Sodium Potassium Chloride Carbon Dioxide BUN Creatinine Glucose POC Glucose 278 H Calcium Phosphorus Magnesium AST C-Reactive Protein Total Protein Albumin Lipase Urine WBC (Auto) Urine Chloride Urine Total Protein 10/19/16 10/19/16 06:01 06:30 WBC RBC Hgb Hct MCV RDW Plt Count Lymph % (Auto) [place] % (Auto) [place] # Seg Neutrophils % Seg Neuts % (Manual) Lymphocytes % (Manual) Monocytes % (Manual) Seg Neutrophils # Seg Neutrophils # Man Lymphocytes # (Manual) Monocytes # (Manual) PT INR APTT Heparin Anti-Xa Level POC ABG pH POC ABG pCO2 POC ABG pO2 Sodium Potassium Chloride Carbon Dioxide 18 L BUN Creatinine 1.3 H Glucose 262 H POC Glucose 261 H Calcium 7.7 L Phosphorus 4.8 H D Magnesium AST C-Reactive Protein Total Protein Albumin Lipase Urine WBC (Auto) Urine Chloride Urine Total Protein Allied health notes reviewed: RT
[2016-10-19] MEDS: VANCOMYCIN VIAL 1,250 MG in NACL 0.9% 250ML 250 ML IV SCH (11:57)
--- NOTE | 2016-10-19 15:31 | Progress Note ---
Assessment and Plan - Patient Problems (1) Acute on chronic renal failure Current Visit: Yes Status: Acute Plan to address problem: Renal function stable. Current serum creatinine 1.3 today. Obtain daily weights Renally dose medications Strict I/O monitoring, stewart catheter present Will continue to monitor renal function closely (2) DKA (diabetic ketoacidoses) Current Visit: Yes Status: Acute Qualifiers: Diabetes mellitus type: D Diabetes mellitus complication detail: D Plan to address problem: S/P insulin drip. Now on sliding scale insulin. (3) Respiratory failure Current Visit: Yes Status: Acute Qualifiers: Chronicity: C Respiratory failure complication: R Plan to address problem: Intubated Subjective Date of service: 10/19/16 Principal diagnosis: respiratory failure on mechanical ventilatory support, DKA Interval history: Patient remains intubated on vent. remains at bedside. Objective - Vital Signs Vital signs: Vital Signs - 12hr 10/19/16 10/19/16 10/19/16 03:30 03:55 04:00 Temperature 99.1 F Pulse Rate 108 H 112 H Respiratory 20 20 Rate Blood Pressure 148/70 153/71 O2 Sat by Pulse 100 100 Oximetry 10/19/16 10/19/16 10/19/16 04:30 05:00 05:24 Temperature Pulse Rate 115 H 112 H Respiratory 27 H Rate Blood Pressure 153/71 166/79 166/79 O2 Sat by Pulse 100 Oximetry 10/19/16 10/19/16 10/19/16 05:30 06:00 06:30 Temperature Pulse Rate 94 H 91 H 108 H Respiratory 20 20 37 H Rate Blood Pressure 135/64 130/61 157/70 O2 Sat by Pulse 100 100 100 Oximetry 10/19/16 10/19/16 10/19/16 07:00 07:30 08:00 Temperature 101.9 F H Pulse Rate 108 H 114 H 117 H Respiratory 20 21 24 Rate Blood Pressure 156/68 165/76 145/69 O2 Sat by Pulse 100 100 100 Oximetry 10/19/16 10/19/16 10/19/16 08:30 08:49 09:00 Temperature Pulse Rate 114 H 109 H 106 H Respiratory 22 12 Rate Blood Pressure 145/74 145/74 127/48 O2 Sat by Pulse 100 100 100 Oximetry 10/19/16 10/19/16 10/19/16 09:30 10:00 10:15 Temperature 99.5 F Pulse Rate 107 H 104 H Respiratory 15 17 Rate Blood Pressure 134/51 137/51 O2 Sat by Pulse 100 100 Oximetry 10/19/16 10/19/16 10/19/16 10:30 11:00 11:30 Temperature Pulse Rate 107 H 103 H 106 H Respiratory 17 19 19 Rate Blood Pressure 134/56 140/57 143/58 O2 Sat by Pulse 100 100 100 Oximetry 10/19/16 10/19/16 10/19/16 12:00 12:04 12:13 Temperature Pulse Rate 92 H 94 H 92 H Respiratory 17 Rate Blood Pressure 135/50 141/58 135/50 O2 Sat by Pulse 100 100 Oximetry 10/19/16 10/19/16 10/19/16 12:30 13:00 13:30 Temperature Pulse Rate 93 H 94 H 90 Respiratory 16 20 20 Rate Blood Pressure 140/57 136/51 121/47 O2 Sat by Pulse 100 100 100 Oximetry 10/19/16 10/19/16 10/19/16 14:00 14:30 15:00 Temperature 98.9 F Pulse Rate 93 H 94 H 109 H Respiratory 20 20 11 L Rate Blood Pressure 130/53 133/48 138/51 O2 Sat by Pulse 100 100 100 Oximetry - General Appearance General appearance: sedated on ventilator, intubated EENT: ATNC Neck: no JVD, supple Respiratory: Present: Clear to Ascultation Cardiology: regular, tachycardia, S1S2 Gastrointestinal: normoactive bowel sounds Integumentary: warm and dry Neurologic: other (sedated) Musculoskeletal: other (mild edema) - Lab 10/19/16 05:13 10/19/16 06:30 Most recent lab results Calcium 7.7 mg/dL (8.4-10.2) L 10/19/16 06:30 Phosphorus 4.8 mg/dL (2.5-4.5) H D 10/19/16 06:30 Magnesium 1.6 mg/dL (1.7-2.3) L 10/18/16 06:46 Urine Creatinine < 4.2 mg/dL (0.1-20.0) 10/13/16 Unknown Urine Sodium 10 mEq/L 10/13/16 Unknown Urine Total Protein < 4 mg/dL (5-11.8) L 10/13/16 Unknown
--- NOTE | 2016-10-19 16:12 | Progress Note ---
Assessment and Plan Assessment and plan: 66-year-old woman who presented with lethargy and altered mental status she deteriorated and was intubated and in emergency room, she was managed for DKA and she also developed sepsis due to UTI and right lower extremity ischemia 1. Acute respiratory failure with hypercapnia Continue events 2. Diabetes DKA has now resolved, still having hyperglycemia will manage her insulins 3. Sepsis Suspected due to UTI, urine has only grown Paula, sputum cultures grew group B strep, continue broad-spectrum antibiotics, infectious disease input appreciated 4. 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 Vascular surgery input appreciated, too ill for any surgical intervention, continue heparin drip Given her multiple medical illnesses, her prognosis is quite poor Critical care time 32 minutes History Interval history: Patient has not improved, she has not been able to be weaned off the ventilator, Hospitalist Physical - Physical exam Narrative exam: General: Appears ill, intubated sedated HEENT: MMM, EOMI cardiac: S1-S2 heard lungs: Ventilated breath sounds abdomen: soft, nontender, nondistended bowel sounds positive extremities: Right lower extremity has no distal pulses, cold to touch Skin: no rash or lesion Neuro: Intubated sedated - Constitutional Vitals: Temp Pulse Resp BP Pulse Ox 98.9 F 109 H 11 L 138/51 100 10/19/16 14:00 10/19/16 15:00 10/19/16 15:00 10/19/16 15:00 10/19/16 15:00 General appearance: Present: other (intubated) Results - Labs CBC & Chem 7: 10/21/16 05:00 10/21/16 Unknown Labs: Laboratory Last Values WBC 18.2 K/mm3 (4.5-11.0) H 10/19/16 05:13 RBC 2.76 M/mm3 (3.65-5.03) L 10/19/16 05:13 Hgb 9.0 gm/dl (10.1-14.3) L 10/19/16 05:13 Hct 27.7 % (30.3-42.9) L 10/19/16 05:13 MCV 100 fl (79-97) H 10/19/16 05:13 MCH 32 pg (28-32) 10/19/16 05:13 MCHC 32 % (30-34) 10/19/16 05:13 RDW 13.3 % (13.2-15.2) 10/19/16 05:13 Plt Count 273 K/mm3 (140-440) 10/19/16 05:13 Lymph % (Auto) TNR 10/17/16 07:08 [place] % (Auto) TNR 10/17/16 07:08 Eos % (Auto) TNR 10/17/16 07:08 Baso % (Auto) TNR 10/17/16 07:08 Lymph # TNR 10/17/16 07:08 [place] # TNR 10/17/16 07:08 Eos # TNR 10/17/16 07:08 Baso # TNR 10/17/16 07:08 Add Manual Diff Complete 10/19/16 05:13 Total Counted 100 10/19/16 05:13 Seg Neutrophils % TNR 10/17/16 07:08 Seg Neuts % (Manual) 76.0 % (40.0-70.0) H 10/19/16 05:13 Band Neutrophils % 8.0 % 10/19/16 05:13 Lymphocytes % (Manual) 10.0 % (13.4-35.0) L 10/19/16 05:13 Reactive Lymphs % (Man) 0 % 10/19/16 05:13 Monocytes % (Manual) 3.0 % (0.0-7.3) 10/19/16 05:13 Eosinophils % (Manual) 1.0 % (0.0-4.3) 10/19/16 05:13 Basophils % (Manual) 0 % (0.0-1.8) 10/19/16 05:13 Metamyelocytes % 2.0 % 10/19/16 05:13 Myelocytes % 0 % 10/19/16 05:13 Promyelocytes % 0 % 10/19/16 05:13 Blast Cells % 0 % 10/19/16 05:13 Nucleated RBC % Not Reportable 10/19/16 05:13 Seg Neutrophils # TNR 10/17/16 07:08 Seg Neutrophils # Man 13.8 K/mm3 (1.8-7.7) H 10/19/16 05:13 Band Neutrophils # 1.5 K/mm3 10/19/16 05:13 Lymphocytes # (Manual) 1.8 K/mm3 (1.2-5.4) 10/19/16 05:13 Abs React Lymphs (Man) 0.0 K/mm3 10/19/16 05:13 Monocytes # (Manual) 0.5 K/mm3 (0.0-0.8) 10/19/16 05:13 Eosinophils # (Manual) 0.2 K/mm3 (0.0-0.4) 10/19/16 05:13 Basophils # (Manual) 0.0 K/mm3 (0.0-0.1) 10/19/16 05:13 Metamyelocytes # 0.4 K/mm3 10/19/16 05:13 Myelocytes # 0.0 K/mm3 10/19/16 05:13 Promyelocytes # 0.0 K/mm3 10/19/16 05:13 Blast Cells # 0.0 K/mm3 10/19/16 05:13 WBC Morphology Not Reportable 10/19/16 05:13 Hypersegmented Neuts Not Reportable 10/19/16 05:13 Hyposegmented Neuts Not Reportable 10/19/16 05:13 Hypogranular Neuts Not Reportable 10/19/16 05:13 Hypersegmented Polys TNR 10/17/16 07:08 Smudge Cells Rare 10/19/16 05:13 Toxic Granulation Not Reportable 10/19/16 05:13 Toxic Vacuolation Not Reportable 10/19/16 05:13 Dohle Bodies Not Reportable 10/19/16 05:13 Pelger-Huet Anomaly Not Reportable 10/19/16 05:13 [place] Rods Not Reportable 10/19/16 05:13 Platelet Estimate Appears normal 10/19/16 05:13 Clumped Platelets Not Reportable 10/19/16 05:13 Plt Clumps, EDTA Not Reportable 10/19/16 05:13 Large Platelets Rare 10/19/16 05:13 Giant Platelets Not Reportable 10/19/16 05:13 Platelet Satelliting Not Reportable 10/19/16 05:13 Plt Morphology Comment Not Reportable 10/19/16 05:13 RBC Morphology Not Reportable 10/19/16 05:13 Dimorphic RBCs Not Reportable 10/19/16 05:13 Polychromasia Not Reportable 10/19/16 05:13 Hypochromasia Not Reportable 10/19/16 05:13 Poikilocytosis Not Reportable 10/19/16 05:13 Basophilic Stippling TNR 10/17/16 07:08 Anisocytosis 1+ 10/19/16 05:13 Microcytosis Not Reportable 10/19/16 05:13 Macrocytosis Not Reportable 10/19/16 05:13 Spherocytes Not Reportable 10/19/16 05:13 Pappenheimer Bodies Not Reportable 10/19/16 05:13 Sickle Cells Not Reportable 10/19/16 05:13 Target Cells Not Reportable 10/19/16 05:13 Tear Drop Cells Not Reportable 10/19/16 05:13 Ovalocytes Not Reportable 10/19/16 05:13 Stomatocytes Few 10/19/16 05:13 Helmet Cells Not Reportable 10/19/16 05:13 [place] Bodies Not Reportable 10/19/16 05:13 [place] Rings Not Reportable 10/19/16 05:13 [place] Cells Not Reportable 10/19/16 05:13 Bite Cells Not Reportable 10/19/16 05:13 Crenated Cell Not Reportable 10/19/16 05:13 Elliptocytes Not Reportable 10/19/16 05:13 Acanthocytes (Spur) Not Reportable 10/19/16 05:13 Rouleaux Not Reportable 10/19/16 05:13 Hemoglobin C Crystals Not Reportable 10/19/16 05:13 Schistocytes Not Reportable 10/19/16 05:13 Malaria parasites Not Reportable 10/19/16 05:13 David Bodies Not Reportable 10/19/16 05:13 Hem Pathologist Commnt No 10/19/16 05:13 PT 16.4 Sec. (12.2-14.9) H 10/17/16 16:07 INR 1.33 (0.87-1.13) H 10/17/16 16:07 APTT 38.8 Sec. (24.2-36.6) H 10/17/16 16:07 Heparin Anti-Xa Level 0.45 U.I./ml (0.3-0.7) 10/19/16 05:13 POC ABG pH 7.382 (7.35-7.45) 10/19/16 03:59 POC ABG pCO2 32.2 (35-45) L 10/19/16 03:59 POC ABG pO2 128 (80-105) H 10/19/16 03:59 POC ABG HCO3 19.1 10/19/16 03:59 POC ABG Total CO2 20 10/19/16 03:59 POC ABG O2 Sat 99 10/19/16 03:59 POC ABG Base Excess -6 10/19/16 03:59 VBG pH 7.020 (7.320-7.420) L* 10/13/16 04:22 FiO2 30 % 10/19/16 03:59 Sodium 145 mmol/L (137-145) 10/19/16 06:30 Potassium 3.7 mmol/L (3.6-5.0) 10/19/16 06:30 Chloride 105.5 mmol/L (98-107) 10/19/16 06:30 Carbon Dioxide 18 mmol/L (22-30) L 10/19/16 06:30 Anion Gap 25 mmol/L 10/19/16 06:30 BUN 16 mg/dL (7-17) 10/19/16 06:30 Creatinine 1.3 mg/dL (0.7-1.2) H 10/19/16 06:30 Estimated GFR 50 ml/min 10/19/16 06:30 BUN/Creatinine Ratio 12.30 % 10/19/16 06:30 Glucose 262 mg/dL (65-100) H 10/19/16 06:30 POC Glucose 261 (70-105) H 10/19/16 06:01 Osmolality 332 Mosm/kg 10/14/16 07:03 Lactic Acid 1.8 mmol/L (0.7-2.0) 10/14/16 07:03 Calcium 7.7 mg/dL (8.4-10.2) L 10/19/16 06:30 Phosphorus 4.8 mg/dL (2.5-4.5) H D 10/19/16 06:30 Magnesium 1.6 mg/dL (1.7-2.3) L 10/18/16 06:46 Total Bilirubin 0.5 mg/dL (0.1-1.2) 10/15/16 04:40 AST 79 units/L (5-40) H 10/15/16 04:40 ALT 27 units/L (7-56) 10/15/16 04:40 Alkaline Phosphatase 80 units/L (35-129) 10/15/16 04:40 Ammonia 35.0 umol/L (25-60) 10/13/16 05:40 Total Creatine Kinase 107 units/L (30-135) 10/13/16 04:22 CK-MB (CK-2) 3.1 ng/mL (0.0-4.0) 10/13/16 04:22 CK-MB (CK-2) Rel Index 2.8 (0-4) 10/13/16 04:22 Troponin T < 0.010 ng/mL (0.00-0.029) 10/14/16 18:55 C-Reactive Protein 10.50 mg/dL (0.00-1.30) H 10/13/16 16:14 Total Protein 5.5 g/dL (6.3-8.2) L 10/15/16 04:40 Albumin 3.0 g/dL (3.9-5) L 10/15/16 04:40 Albumin/Globulin Ratio 1.2 % 10/15/16 04:40 Lipase 143 units/L (13-60) H 10/16/16 04:14 Urine Color Yellow (Yellow) 10/15/16 11:05 Urine Turbidity Cloudy (Clear) 10/15/16 11:05 Urine pH 5.0 (5.0-7.0) 10/15/16 11:05 Ur Specific [place] 1.009 (1.003-1.030) 10/15/16 11:05 Urine Protein 30 mg/dl mg/dL (Negative) 10/15/16 11:05 Urine Glucose (UA) 150 mg/dL (Negative) 10/15/16 11:05 Urine Ketones Neg mg/dL (Negative) 10/15/16 11:05 Urine Blood Lg (Negative) 10/15/16 11:05 Urine Nitrite Neg (Negative) 10/15/16 11:05 Urine Bilirubin Neg (Negative) 10/15/16 11:05 Urine Urobilinogen < 2.0 mg/dL (<2.0) 10/15/16 11:05 Ur Leukocyte Esterase Neg (Negative) 10/15/16 11:05 Urine WBC (Auto) 7.0 /HPF (0.0-6.0) H 10/15/16 11:05 Urine RBC (Auto) 7.0 /HPF (0.0-6.0) 10/15/16 11:05 U Epithel Cells (Auto) 1.0 /HPF (0-13.0) 10/15/16 11:05 Urine Mucus Few /HPF 10/15/16 11:05 Urine Yeast (Budding) 2+ /HPF 10/15/16 11:05 Urine Osmolality 487 Mosm/kg 10/13/16 Unknown Urine Creatinine < 4.2 mg/dL (0.1-20.0) 10/13/16 Unknown Protein/Creatinin Ratio 0.00 10/13/16 Unknown Urine Sodium 10 mEq/L 10/13/16 Unknown Urine Potassium 1.00 mEq/L 10/13/16 Unknown Urine Chloride 10.0 mEq/L (110-250) L 10/13/16 Unknown Urine Total Protein < 4 mg/dL (5-11.8) L 10/13/16 Unknown Ketones 107.3 mg/dL (0.2-2.8) H 10/13/16 04:22
[2016-10-19] MEDS: TYLENOL FEEDTUBE PRN (17:39)
--- NOTE | 2016-10-19 19:51 | Progress Note ---
Subjective Date of service: 10/19/16 Principal diagnosis: respiratory failure on mechanical ventilatory support, DKA Interval history: A 63-year-old with a history of hypertension, diabetes who was brought to the hospital for evaluation of changes in mental status. In route to the hospital, she deteriorates and had to be intubated in the emergency room. She is being managed for DKA. However, patient debeloped fever and leukocytosis. Urine culture grew c. albicans. Sputum culture grew strep group B. Infectious disease is consulted because of concern for sepsis. Patient seen at bedside. Intubated. Unable to provide history. CHEST - [facility] [employer] ENTRY CVS - S1S2 ABD - BS_ LABS Reviewed. See lab section ASSESSMENT 1. Sepsis 2. dka 3. resp failure 4. htn RECOMMENDATION REPEAT BLOOD CULTURE ADD CLINDAMYCIN WILL FOLLOW. Objective - Constitutional Vitals: Vital Signs Temp Pulse Resp BP Pulse Ox 101.4 F H 106 H 20 138/51 100 10/19/16 18:00 10/19/16 18:30 10/19/16 18:30 10/19/16 18:30 10/19/16 18:30 Temperature -Last 24 Hours Temperature 101.4 F Temperature 98.9 F Temperature 99.5 F Temperature 101.9 F Temperature 99.1 F Temperature 100.1 F Temperature 101.0 F - Labs CBC & Chem 7: 10/19/16 05:13 10/19/16 06:30 Labs: Abnormal lab results 10/18/16 10/19/16 10/19/16 Range/Units 23:44 03:59 05:13 WBC 18.2 H (4.5-11.0) K/mm3 RBC 2.76 L (3.65-5.03) M/mm3 Hgb 9.0 L (10.1-14.3) gm/dl Hct 27.7 L (30.3-42.9) % MCV 100 H (79-97) fl Seg Neuts % (Manual) 76.0 H (40.0-70.0) % Lymphocytes % (Manual) 10.0 L (13.4-35.0) % Seg Neutrophils # Man 13.8 H (1.8-7.7) K/mm3 POC ABG pCO2 32.2 L (35-45) POC ABG pO2 128 H (80-105) Carbon Dioxide (22-30) mmol/L Creatinine (0.7-1.2) mg/dL Glucose (65-100) mg/dL POC Glucose 278 H (70-105) Calcium (8.4-10.2) mg/dL Phosphorus (2.5-4.5) mg/dL 10/19/16 10/19/16 10/19/16 Range/Units 06:01 06:30 12:20 WBC (4.5-11.0) K/mm3 RBC (3.65-5.03) M/mm3 Hgb (10.1-14.3) gm/dl Hct (30.3-42.9) % MCV (79-97) fl Seg Neuts % (Manual) (40.0-70.0) % Lymphocytes % (Manual) (13.4-35.0) % Seg Neutrophils # Man (1.8-7.7) K/mm3 POC ABG pCO2 (35-45) POC ABG pO2 (80-105) Carbon Dioxide 18 L (22-30) mmol/L Creatinine 1.3 H (0.7-1.2) mg/dL Glucose 262 H (65-100) mg/dL POC Glucose 261 H 349 H (70-105) Calcium 7.7 L (8.4-10.2) mg/dL Phosphorus 4.8 H D (2.5-4.5) mg/dL
[2016-10-19] MEDS ORDERED: LEVEMIR SUB-Q SCH (22:00)
[2016-10-19] MEDS: CLEOCIN 600 MG/50 mL 600 MG/50 ML BAG IV SCH (23:19)
[2016-10-19] MEDS: VERSED/NS 100MG/100ML 100 MG/100 ML BAG IV SCH (23:22)
[2016-10-20 05:44] LABS: Hematocrit 28.3 % (30.3-42.9); Hemoglobin 8.9 gm/dl (10.1-14.3); Mean Corpuscular HGB Conc 32 % (30-34); Mean Corpuscular Hemoglobin 32 pg (28-32); Mean Corpuscular Volume 101 fl (79-97); Platelet Count 363 K/mm3 (140-440); Red Cell Distribution Width 13.2 % (13.2-15.2)
[2016-10-20 05:53] LABS: White Blood Count 22.5 K/mm3 (4.5-11.0)
[2016-10-20 06:02] LABS: BUN/Creatinine Ratio 16.66; Phosphorous 3.5 mg/dL (2.5-4.5); Potassium 3.3 mmol/L (3.6-5.0)
[2016-10-20 06:12] LABS: Calcium 8.3 mg/dL (8.4-10.2)
[2016-10-20] MEDS: TYLENOL FEEDTUBE PRN ×2 (08:02→15:15)
[2016-10-20 08:12] LABS: Basophils % (Manual) 0 % (0.0-1.8); Blastocytes % (Manual) 0 %
[2016-10-20 08:14] LABS: Anisocytosis 1+; Hypochromasia 1+; Large Platelets Few; Stomatocytes Few
[2016-10-20 08:15] LABS: Diff Status Complete
--- NOTE | 2016-10-20 09:31 | XRay Report ---
AP CHEST: HISTORY: Followup respiratory failure Given rotation to the left, no change is appreciated since yesterday's exam. Heart size remains normal. The lungs are clear. Heart and mediastinal structures are within normal limits. Lines and tubes remain in good position. IMPRESSION: No change.
[2016-10-20] MEDS: PEPCID IV SCH ×2 (09:40→22:33)
[2016-10-20] MEDS: LOPRESSOR IV SCH ×2 (11:58→17:56)
[2016-10-20] MEDS: NOVOLOG SUB-Q SCH ×2 (11:59→18:07)
[2016-10-20] MEDS: VANCOMYCIN VIAL 1,250 MG in NACL 0.9% 250ML 250 ML IV SCH (12:00)
--- NOTE | 2016-10-20 13:32 | Progress Note ---
Assessment and Plan - Patient Problems (1) Acute respiratory failure with hypercapnia Current Visit: Yes Status: Acute Plan to address problem: Continue with mechanical ventilatory support. VAP bundle Critical bundle addressed Agitation management Adjust ventilator settings for better gas-exchange VTYE/Stress ulcer prophylaxis SAT/SBT Glycemic control (2) DKA (diabetic ketoacidoses) Current Visit: Yes Status: Acute Qualifiers: Diabetes mellitus type: D Diabetes mellitus complication detail: D Plan to address problem: Continue with accucheck and glycemic control. Monitor closely (3) Altered mental status Current Visit: Yes Status: Acute Qualifiers: Altered mental status type: A Coma depth: C Coma timing: C (4) Acidosis Current Visit: Yes Status: Acute (5) Acute on chronic renal failure Current Visit: Yes Status: Acute Plan to address problem: Monitor renal function and electrolytes. Avoid nephrotoxic agents, adjust all medications for creatinine clearance (6) Sepsis Current Visit: Yes Status: Acute Qualifiers: Sepsis type: S Plan to address problem: Blood cultures, urine cultures Broaden antibiotic therapy while awaiting culture results especially with worsening acidosis. Remains hemodynamically stable (7) Cold foot Current Visit: Yes Status: Acute Qualifiers: Laterality: L Plan to address problem: As per vascular service. Continue heparin infusion Subjective Date of service: 10/20/16 Principal diagnosis: respiratory failure on mechanical ventilatory support, DKA Interval history: patient seen and examined. Vitals, labs, medications, chart reviewed Having fevers, with on-going encephalopathy and agitation Objective Vital Signs - 12hr 10/20/16 10/20/16 10/20/16 02:00 02:30 03:00 Temperature Pulse Rate 97 H 117 H 115 H Pulse Rate [ Apical] Respiratory 20 24 15 Rate Blood Pressure 119/51 132/51 138/53 O2 Sat by Pulse 100 100 100 Oximetry 10/20/16 10/20/16 10/20/16 03:30 04:00 04:30 Temperature Pulse Rate 115 H 107 H 114 H Pulse Rate [ Apical] Respiratory 18 20 22 Rate Blood Pressure 128/55 135/52 147/54 O2 Sat by Pulse 100 100 100 Oximetry 10/20/16 10/20/16 10/20/16 05:00 05:30 06:00 Temperature Pulse Rate 127 H 131 H 105 H Pulse Rate [ Apical] Respiratory 15 27 H 22 Rate Blood Pressure 147/54 177/82 164/74 O2 Sat by Pulse 100 100 Oximetry 10/20/16 10/20/16 10/20/16 06:30 07:00 07:20 Temperature Pulse Rate 100 H 97 H 98 H Pulse Rate [ Apical] Respiratory 20 20 Rate Blood Pressure 139/61 139/60 130/60 O2 Sat by Pulse 100 100 98 Oximetry 10/20/16 10/20/16 10/20/16 07:30 08:00 08:30 Temperature 101.7 F H Pulse Rate 98 H 99 H 113 H Pulse Rate [ 987 H Apical] Respiratory 20 21 24 Rate Blood Pressure 142/62 146/63 160/70 O2 Sat by Pulse 100 100 Oximetry 10/20/16 10/20/16 10/20/16 09:00 09:30 09:40 Temperature Pulse Rate 113 H 111 H Pulse Rate [ Apical] Respiratory 24 22 50 H Rate Blood Pressure 148/64 132/59 O2 Sat by Pulse 100 100 Oximetry 10/20/16 10/20/16 10/20/16 10:00 10:30 10:45 Temperature Pulse Rate 108 H 108 H 102 H Pulse Rate [ Apical] Respiratory 22 22 Rate Blood Pressure 135/58 131/54 O2 Sat by Pulse 99 98 98 Oximetry 10/20/16 10/20/16 10/20/16 11:00 11:58 12:00 Temperature 102 F H Pulse Rate 106 H 108 H Pulse Rate [ Apical] Respiratory 21 Rate Blood Pressure 137/59 133/56 O2 Sat by Pulse Oximetry Constitutional: no acute distress, other (sedated) Eyes: non-icteric ENT: oropharynx moist Neck: supple, no lymphadenopathy Effort: mildly labored Ascultation: Bilateral: diminished breath sounds, rales Cardiovascular: regular rate and rhythm Gastrointestinal: normoactive bowel sounds, soft, non-tender, non-distended Integumentary: normal Extremities: no cyanosis, no edema, pulses normal (Cold right foot), no ischemia or petechiae Neurologic: unable to assess Psychiatric: other (sedated) CBC and BMP: 10/21/16 05:00 10/21/16 Unknown ABG, PT/INR, D-dimer: ABG POC ABG pH 7.382 (7.35-7.45) 10/19/16 03:59 POC ABG pCO2 32.2 (35-45) L 10/19/16 03:59 POC ABG pO2 128 (80-105) H 10/19/16 03:59 POC ABG HCO3 19.1 10/19/16 03:59 POC ABG Total CO2 20 10/19/16 03:59 POC ABG O2 Sat 99 10/19/16 03:59 PT/INR, D-dimer PT 16.4 Sec. (12.2-14.9) H 10/17/16 16:07 INR 1.33 (0.87-1.13) H 10/17/16 16:07 Abnormal lab findings: Abnormal Labs 10/13/16 10/13/16 10/13/16 06:38 06:38 07:23 WBC RBC Hgb Hct MCV RDW Plt Count Lymph % (Auto) [place] % (Auto) [place] # Seg Neutrophils % Seg Neuts % (Manual) Lymphocytes % (Manual) Monocytes % (Manual) Seg Neutrophils # Seg Neutrophils # Man Lymphocytes # (Manual) Monocytes # (Manual) Eosinophils # (Manual) PT INR APTT Heparin Anti-Xa Level POC ABG pH POC ABG pCO2 POC ABG pO2 Sodium Potassium 6.2 H* Chloride Carbon Dioxide 8 L* BUN 85 H Creatinine 2.8 H Glucose 602 H* POC Glucose 495 H Calcium 7.9 L Phosphorus 6.9 H D Magnesium 3.0 H AST C-Reactive Protein Total Protein Albumin Lipase Urine WBC (Auto) Urine Chloride Urine Total Protein 10/13/16 10/13/16 10/13/16 08:49 08:55 10:12 WBC RBC Hgb Hct MCV RDW Plt Count Lymph % (Auto) [place] % (Auto) [place] # Seg Neutrophils % Seg Neuts % (Manual) Lymphocytes % (Manual) Monocytes % (Manual) Seg Neutrophils # Seg Neutrophils # Man Lymphocytes # (Manual) Monocytes # (Manual) Eosinophils # (Manual) PT INR APTT Heparin Anti-Xa Level POC ABG pH POC ABG pCO2 POC ABG pO2 Sodium Potassium 5.6 H Chloride Carbon Dioxide 11 L BUN 77 H Creatinine 2.7 H Glucose 457 H POC Glucose > 500 H 424 H Calcium 8.0 L Phosphorus Magnesium AST C-Reactive Protein Total Protein Albumin Lipase Urine WBC (Auto) Urine Chloride Urine Total Protein 10/13/16 10/13/16 10/13/16 10:44 11:22 12:20 WBC RBC Hgb Hct MCV RDW Plt Count Lymph % (Auto) [place] % (Auto) [place] # Seg Neutrophils % Seg Neuts % (Manual) Lymphocytes % (Manual) Monocytes % (Manual) Seg Neutrophils # Seg Neutrophils # Man Lymphocytes # (Manual) Monocytes # (Manual) Eosinophils # (Manual) PT INR APTT Heparin Anti-Xa Level POC ABG pH POC ABG pCO2 POC ABG pO2 Sodium Potassium 5.4 H Chloride Carbon Dioxide 14 L BUN 72 H Creatinine 2.6 H Glucose 383 H POC Glucose 391 H 313 H Calcium 8.2 L Phosphorus Magnesium AST C-Reactive Protein Total Protein Albumin Lipase Urine WBC (Auto) Urine Chloride Urine Total Protein 10/13/16 10/13/16 10/13/16 13:32 14:44 15:57 WBC RBC Hgb Hct MCV RDW Plt Count Lymph % (Auto) [place] % (Auto) [place] # Seg Neutrophils % Seg Neuts % (Manual) Lymphocytes % (Manual) Monocytes % (Manual) Seg Neutrophils # Seg Neutrophils # Man Lymphocytes # (Manual) Monocytes # (Manual) Eosinophils # (Manual) PT INR APTT Heparin Anti-Xa Level POC ABG pH POC ABG pCO2 POC ABG pO2 Sodium Potassium Chloride Carbon Dioxide BUN Creatinine Glucose POC Glucose 296 H 210 H 190 H Calcium Phosphorus Magnesium AST C-Reactive Protein Total Protein Albumin Lipase Urine WBC (Auto) Urine Chloride Urine Total Protein 10/13/16 10/13/16 10/13/16 16:14 16:14 17:17 WBC RBC Hgb Hct MCV RDW Plt Count Lymph % (Auto) [place] % (Auto) [place] # Seg Neutrophils % Seg Neuts % (Manual) Lymphocytes % (Manual) Monocytes % (Manual) Seg Neutrophils # Seg Neutrophils # Man Lymphocytes # (Manual) Monocytes # (Manual) Eosinophils # (Manual) PT INR APTT Heparin Anti-Xa Level POC ABG pH POC ABG pCO2 POC ABG pO2 Sodium Potassium Chloride Carbon Dioxide 17 L BUN 58 H Creatinine 1.8 H Glucose 172 H POC Glucose 193 H Calcium 7.7 L Phosphorus Magnesium AST C-Reactive Protein 10.50 H Total Protein Albumin Lipase Urine WBC (Auto) Urine Chloride Urine Total Protein 10/13/16 10/13/16 10/13/16 17:55 18:32 19:41 WBC RBC Hgb Hct MCV RDW Plt Count Lymph % (Auto) [place] % (Auto) [place] # Seg Neutrophils % Seg Neuts % (Manual) Lymphocytes % (Manual) Monocytes % (Manual) Seg Neutrophils # Seg Neutrophils # Man Lymphocytes # (Manual) Monocytes # (Manual) Eosinophils # (Manual) PT INR APTT Heparin Anti-Xa Level POC ABG pH POC ABG pCO2 30.6 L POC ABG pO2 218 H Sodium Potassium Chloride Carbon Dioxide BUN Creatinine Glucose POC Glucose 192 H 177 H Calcium Phosphorus Magnesium AST C-Reactive Protein Total Protein Albumin Lipase Urine WBC (Auto) Urine Chloride Urine Total Protein 10/13/16 10/13/16 10/13/16 20:54 22:07 23:13 WBC RBC Hgb Hct MCV RDW Plt Count Lymph % (Auto) [place] % (Auto) [place] # Seg Neutrophils % Seg Neuts % (Manual) Lymphocytes % (Manual) Monocytes % (Manual) Seg Neutrophils # Seg Neutrophils # Man Lymphocytes # (Manual) Monocytes # (Manual) Eosinophils # (Manual) PT INR APTT Heparin Anti-Xa Level POC ABG pH POC ABG pCO2 POC ABG pO2 Sodium Potassium Chloride Carbon Dioxide BUN Creatinine Glucose POC Glucose 178 H 160 H 168 H Calcium Phosphorus Magnesium AST C-Reactive Protein Total Protein Albumin Lipase Urine WBC (Auto) Urine Chloride Urine Total Protein 10/13/16 10/13/16 10/14/16 23:25 Unknown 00:21 WBC RBC Hgb Hct MCV RDW Plt Count Lymph % (Auto) [place] % (Auto) [place] # Seg Neutrophils % Seg Neuts % (Manual) Lymphocytes % (Manual) Monocytes % (Manual) Seg Neutrophils # Seg Neutrophils # Man Lymphocytes # (Manual) Monocytes # (Manual) Eosinophils # (Manual) PT INR APTT Heparin Anti-Xa Level POC ABG pH POC ABG pCO2 POC ABG pO2 Sodium 148 H Potassium Chloride 114.6 H Carbon Dioxide 17 L BUN 56 H Creatinine 1.6 H Glucose 151 H POC Glucose 171 H Calcium 7.8 L Phosphorus Magnesium AST C-Reactive Protein Total Protein Albumin Lipase Urine WBC (Auto) Urine Chloride 10.0 L Urine Total Protein < 4 L 10/14/16 10/14/16 10/14/16 01:22 02:29 03:30 WBC RBC Hgb Hct MCV RDW Plt Count Lymph % (Auto) [place] % (Auto) [place] # Seg Neutrophils % Seg Neuts % (Manual) Lymphocytes % (Manual) Monocytes % (Manual) Seg Neutrophils # Seg Neutrophils # Man Lymphocytes # (Manual) Monocytes # (Manual) Eosinophils # (Manual) PT INR APTT Heparin Anti-Xa Level POC ABG pH POC ABG pCO2 POC ABG pO2 Sodium Potassium Chloride Carbon Dioxide BUN Creatinine Glucose POC Glucose 144 H 136 H 143 H Calcium Phosphorus Magnesium AST C-Reactive Protein Total Protein Albumin Lipase Urine WBC (Auto) Urine Chloride Urine Total Protein 10/14/16 10/14/16 10/14/16 04:28 05:16 05:44 WBC RBC Hgb Hct MCV RDW Plt Count Lymph % (Auto) [place] % (Auto) [place] # Seg Neutrophils % Seg Neuts % (Manual) Lymphocytes % (Manual) Monocytes % (Manual) Seg Neutrophils # Seg Neutrophils # Man Lymphocytes # (Manual) Monocytes # (Manual) Eosinophils # (Manual) PT INR APTT Heparin Anti-Xa Level POC ABG pH POC ABG pCO2 28.2 L POC ABG pO2 125 H Sodium Potassium Chloride Carbon Dioxide BUN Creatinine Glucose POC Glucose 133 H 160 H Calcium Phosphorus Magnesium AST C-Reactive Protein Total Protein Albumin Lipase Urine WBC (Auto) Urine Chloride Urine Total Protein 10/14/16 10/14/16 10/14/16 06:12 06:45 07:03 WBC RBC Hgb Hct MCV RDW Plt Count Lymph % (Auto) [place] % (Auto) [place] # Seg Neutrophils % Seg Neuts % (Manual) Lymphocytes % (Manual) Monocytes % (Manual) Seg Neutrophils # Seg Neutrophils # Man Lymphocytes # (Manual) Monocytes # (Manual) Eosinophils # (Manual) PT INR APTT Heparin Anti-Xa Level POC ABG pH POC ABG pCO2 POC ABG pO2 Sodium 149 H Potassium Chloride 115.4 H Carbon Dioxide 17 L BUN 45 H Creatinine 1.5 H Glucose 139 H POC Glucose 149 H Calcium 7.4 L Phosphorus 1.0 L D Magnesium AST C-Reactive Protein Total Protein Albumin Lipase Urine WBC (Auto) Urine Chloride Urine Total Protein 10/14/16 10/14/16 10/14/16 07:03 08:02 09:16 WBC RBC Hgb Hct MCV RDW Plt Count Lymph % (Auto) [place] % (Auto) [place] # Seg Neutrophils % Seg Neuts % (Manual) Lymphocytes % (Manual) Monocytes % (Manual) Seg Neutrophils # Seg Neutrophils # Man Lymphocytes # (Manual) Monocytes # (Manual) Eosinophils # (Manual) PT INR APTT Heparin Anti-Xa Level POC ABG pH POC ABG pCO2 POC ABG pO2 Sodium Potassium Chloride Carbon Dioxide BUN Creatinine Glucose POC Glucose 156 H 158 H Calcium Phosphorus Magnesium AST C-Reactive Protein Total Protein Albumin Lipase 738 H Urine WBC (Auto) Urine Chloride Urine Total Protein 10/14/16 10/14/16 10/14/16 10:26 11:03 11:57 WBC RBC Hgb Hct MCV RDW Plt Count Lymph % (Auto) [place] % (Auto) [place] # Seg Neutrophils % Seg Neuts % (Manual) Lymphocytes % (Manual) Monocytes % (Manual) Seg Neutrophils # Seg Neutrophils # Man Lymphocytes # (Manual) Monocytes # (Manual) Eosinophils # (Manual) PT INR APTT Heparin Anti-Xa Level POC ABG pH 7.198 L POC ABG pCO2 47.5 H POC ABG pO2 Sodium Potassium Chloride Carbon Dioxide BUN Creatinine Glucose POC Glucose 174 H 189 H Calcium Phosphorus Magnesium AST C-Reactive Protein Total Protein Albumin Lipase Urine WBC (Auto) Urine Chloride Urine Total Protein 10/14/16 10/14/16 10/14/16 12:02 12:02 13:11 WBC 13.4 H RBC 3.60 L Hgb Hct MCV 98 H D RDW 13.1 L Plt Count Lymph % (Auto) [place] % (Auto) [place] # Seg Neutrophils % Seg Neuts % (Manual) Lymphocytes % (Manual) Monocytes % (Manual) Seg Neutrophils # Seg Neutrophils # Man Lymphocytes # (Manual) Monocytes # (Manual) Eosinophils # (Manual) PT INR APTT Heparin Anti-Xa Level POC ABG pH POC ABG pCO2 POC ABG pO2 Sodium Potassium Chloride 110.7 H Carbon Dioxide 19 L BUN 38 H Creatinine 1.4 H Glucose 182 H POC Glucose 173 H Calcium 7.5 L Phosphorus Magnesium AST C-Reactive Protein Total Protein Albumin Lipase Urine WBC (Auto) Urine Chloride Urine Total Protein 10/14/16 10/14/16 10/14/16 14:24 15:31 16:36 WBC RBC Hgb Hct MCV RDW Plt Count Lymph % (Auto) [place] % (Auto) [place] # Seg Neutrophils % Seg Neuts % (Manual) Lymphocytes % (Manual) Monocytes % (Manual) Seg Neutrophils # Seg Neutrophils # Man Lymphocytes # (Manual) Monocytes # (Manual) Eosinophils # (Manual) PT INR APTT Heparin Anti-Xa Level POC ABG pH POC ABG pCO2 POC ABG pO2 Sodium Potassium Chloride Carbon Dioxide BUN Creatinine Glucose POC Glucose 123 H 124 H 156 H Calcium Phosphorus Magnesium AST C-Reactive Protein Total Protein Albumin Lipase Urine WBC (Auto) Urine Chloride Urine Total Protein 02/26/17 02/26/17 02/26/17 17:43 19:00 20:08 WBC RBC Hgb Hct MCV RDW Plt Count Lymph % (Auto) [place] % (Auto) [place] # Seg Neutrophils % Seg Neuts % (Manual) Lymphocytes % (Manual) Monocytes % (Manual) Seg Neutrophils # Seg Neutrophils # Man Lymphocytes # (Manual) Monocytes # (Manual) Eosinophils # (Manual) PT INR APTT Heparin Anti-Xa Level POC ABG pH POC ABG pCO2 POC ABG pO2 Sodium Potassium Chloride Carbon Dioxide BUN Creatinine Glucose POC Glucose 154 H 123 H 138 H Calcium Phosphorus Magnesium AST C-Reactive Protein Total Protein Albumin Lipase Urine WBC (Auto) Urine Chloride Urine Total Protein 10/14/16 10/14/16 10/14/16 21:17 22:25 23:37 WBC RBC Hgb Hct MCV RDW Plt Count Lymph % (Auto) [place] % (Auto) [place] # Seg Neutrophils % Seg Neuts % (Manual) Lymphocytes % (Manual) Monocytes % (Manual) Seg Neutrophils # Seg Neutrophils # Man Lymphocytes # (Manual) Monocytes # (Manual) Eosinophils # (Manual) PT INR APTT Heparin Anti-Xa Level POC ABG pH POC ABG pCO2 POC ABG pO2 Sodium Potassium Chloride Carbon Dioxide BUN Creatinine Glucose POC Glucose 148 H 132 H 137 H Calcium Phosphorus Magnesium AST C-Reactive Protein Total Protein Albumin Lipase Urine WBC (Auto) Urine Chloride Urine Total Protein 10/15/16 10/15/16 10/15/16 00:49 01:53 03:06 WBC RBC Hgb Hct MCV RDW Plt Count Lymph % (Auto) [place] % (Auto) [place] # Seg Neutrophils % Seg Neuts % (Manual) Lymphocytes % (Manual) Monocytes % (Manual) Seg Neutrophils # Seg Neutrophils # Man Lymphocytes # (Manual) Monocytes # (Manual) Eosinophils # (Manual) PT INR APTT Heparin Anti-Xa Level POC ABG pH POC ABG pCO2 POC ABG pO2 Sodium Potassium Chloride Carbon Dioxide BUN Creatinine Glucose POC Glucose 132 H 134 H 134 H Calcium Phosphorus Magnesium AST C-Reactive Protein Total Protein Albumin Lipase Urine WBC (Auto) Urine Chloride Urine Total Protein 10/15/16 10/15/16 10/15/16 04:40 04:46 06:21 WBC RBC Hgb Hct MCV RDW Plt Count Lymph % (Auto) [place] % (Auto) [place] # Seg Neutrophils % Seg Neuts % (Manual) Lymphocytes % (Manual) Monocytes % (Manual) Seg Neutrophils # Seg Neutrophils # Man Lymphocytes # (Manual) Monocytes # (Manual) Eosinophils # (Manual) PT INR APTT Heparin Anti-Xa Level POC ABG pH POC ABG pCO2 30.7 L POC ABG pO2 108 H Sodium Potassium Chloride 109.0 H Carbon Dioxide 17 L BUN 27 H Creatinine Glucose 124 H POC Glucose 160 H Calcium 7.5 L Phosphorus Magnesium AST 79 H C-Reactive Protein Total Protein 5.5 L Albumin 3.0 L Lipase Urine WBC (Auto) Urine Chloride Urine Total Protein 10/15/16 10/15/16 10/15/16 07:12 08:01 09:03 WBC RBC Hgb Hct MCV RDW Plt Count Lymph % (Auto) [place] % (Auto) [place] # Seg Neutrophils % Seg Neuts % (Manual) Lymphocytes % (Manual) Monocytes % (Manual) Seg Neutrophils # Seg Neutrophils # Man Lymphocytes # (Manual) Monocytes # (Manual) Eosinophils # (Manual) PT INR APTT Heparin Anti-Xa Level POC ABG pH POC ABG pCO2 POC ABG pO2 Sodium Potassium Chloride Carbon Dioxide BUN Creatinine Glucose POC Glucose 179 H 187 H 165 H Calcium Phosphorus Magnesium AST C-Reactive Protein Total Protein Albumin Lipase Urine WBC (Auto) Urine Chloride Urine Total Protein 10/15/16 10/15/16 10/15/16 10:06 10:06 10:07 WBC 12.1 H RBC 3.01 L Hgb 9.7 L Hct 29.6 L MCV 98 H RDW Plt Count 129 L Lymph % (Auto) [place] % (Auto) [place] # Seg Neutrophils % Seg Neuts % (Manual) Lymphocytes % (Manual) Monocytes % (Manual) Seg Neutrophils # Seg Neutrophils # Man Lymphocytes # (Manual) Monocytes # (Manual) Eosinophils # (Manual) PT INR APTT Heparin Anti-Xa Level POC ABG pH POC ABG pCO2 POC ABG pO2 Sodium Potassium 3.2 L D Chloride 109.6 H Carbon Dioxide 18 L BUN 22 H Creatinine Glucose 127 H POC Glucose 147 H Calcium 7.0 L Phosphorus Magnesium AST C-Reactive Protein Total Protein Albumin Lipase Urine WBC (Auto) Urine Chloride Urine Total Protein 10/15/16 10/15/16 10/15/16 11:05 11:06 11:57 WBC RBC Hgb Hct MCV RDW Plt Count Lymph % (Auto) [place] % (Auto) [place] # Seg Neutrophils % Seg Neuts % (Manual) Lymphocytes % (Manual) Monocytes % (Manual) Seg Neutrophils # Seg Neutrophils # Man Lymphocytes # (Manual) Monocytes # (Manual) Eosinophils # (Manual) PT INR APTT Heparin Anti-Xa Level POC ABG pH 7.305 L POC ABG pCO2 POC ABG pO2 Sodium Potassium Chloride Carbon Dioxide BUN Creatinine Glucose POC Glucose 145 H Calcium Phosphorus Magnesium AST C-Reactive Protein Total Protein Albumin Lipase Urine WBC (Auto) 7.0 H Urine Chloride Urine Total Protein 10/15/16 10/15/16 10/15/16 12:04 13:59 15:24 WBC RBC Hgb Hct MCV RDW Plt Count Lymph % (Auto) [place] % (Auto) [place] # Seg Neutrophils % Seg Neuts % (Manual) Lymphocytes % (Manual) Monocytes % (Manual) Seg Neutrophils # Seg Neutrophils # Man Lymphocytes # (Manual) Monocytes # (Manual) Eosinophils # (Manual) PT INR APTT Heparin Anti-Xa Level POC ABG pH POC ABG pCO2 POC ABG pO2 Sodium Potassium Chloride Carbon Dioxide BUN Creatinine Glucose POC Glucose 123 H 147 H 153 H Calcium Phosphorus Magnesium AST C-Reactive Protein Total Protein Albumin Lipase Urine WBC (Auto) Urine Chloride Urine Total Protein 10/15/16 10/15/16 10/15/16 16:30 17:34 18:30 WBC RBC Hgb Hct MCV RDW Plt Count Lymph % (Auto) [place] % (Auto) [place] # Seg Neutrophils % Seg Neuts % (Manual) Lymphocytes % (Manual) Monocytes % (Manual) Seg Neutrophils # Seg Neutrophils # Man Lymphocytes # (Manual) Monocytes # (Manual) Eosinophils # (Manual) PT INR APTT Heparin Anti-Xa Level POC ABG pH POC ABG pCO2 POC ABG pO2 Sodium Potassium Chloride Carbon Dioxide BUN Creatinine Glucose POC Glucose 223 H 236 H 164 H Calcium Phosphorus Magnesium AST C-Reactive Protein Total Protein Albumin Lipase Urine WBC (Auto) Urine Chloride Urine Total Protein 10/15/16 10/15/16 10/15/16 19:14 20:31 21:23 WBC RBC Hgb Hct MCV RDW Plt Count Lymph % (Auto) [place] % (Auto) [place] # Seg Neutrophils % Seg Neuts % (Manual) Lymphocytes % (Manual) Monocytes % (Manual) Seg Neutrophils # Seg Neutrophils # Man Lymphocytes # (Manual) Monocytes # (Manual) Eosinophils # (Manual) PT INR APTT Heparin Anti-Xa Level POC ABG pH POC ABG pCO2 POC ABG pO2 Sodium Potassium Chloride Carbon Dioxide BUN Creatinine Glucose POC Glucose 138 H 158 H 158 H Calcium Phosphorus Magnesium AST C-Reactive Protein Total Protein Albumin Lipase Urine WBC (Auto) Urine Chloride Urine Total Protein 10/15/16 10/15/16 10/16/16 22:04 22:57 00:11 WBC RBC Hgb Hct MCV RDW Plt Count Lymph % (Auto) [place] % (Auto) [place] # Seg Neutrophils % Seg Neuts % (Manual) Lymphocytes % (Manual) Monocytes % (Manual) Seg Neutrophils # Seg Neutrophils # Man Lymphocytes # (Manual) Monocytes # (Manual) Eosinophils # (Manual) PT INR APTT Heparin Anti-Xa Level POC ABG pH POC ABG pCO2 POC ABG pO2 Sodium Potassium Chloride Carbon Dioxide BUN Creatinine Glucose POC Glucose 168 H 213 H 166 H Calcium Phosphorus Magnesium AST C-Reactive Protein Total Protein Albumin Lipase Urine WBC (Auto) Urine Chloride Urine Total Protein 10/16/16 10/16/16 10/16/16 01:16 02:32 03:38 WBC RBC Hgb Hct MCV RDW Plt Count Lymph % (Auto) [place] % (Auto) [place] # Seg Neutrophils % Seg Neuts % (Manual) Lymphocytes % (Manual) Monocytes % (Manual) Seg Neutrophils # Seg Neutrophils # Man Lymphocytes # (Manual) Monocytes # (Manual) Eosinophils # (Manual) PT INR APTT Heparin Anti-Xa Level POC ABG pH POC ABG pCO2 POC ABG pO2 Sodium Potassium Chloride Carbon Dioxide BUN Creatinine Glucose POC Glucose 171 H 164 H 147 H Calcium Phosphorus Magnesium AST C-Reactive Protein Total Protein Albumin Lipase Urine WBC (Auto) Urine Chloride Urine Total Protein 10/16/16 10/16/16 10/16/16 04:14 04:14 04:49 WBC RBC Hgb Hct MCV RDW Plt Count Lymph % (Auto) [place] % (Auto) [place] # Seg Neutrophils % Seg Neuts % (Manual) Lymphocytes % (Manual) Monocytes % (Manual) Seg Neutrophils # Seg Neutrophils # Man Lymphocytes # (Manual) Monocytes # (Manual) Eosinophils # (Manual) PT INR APTT Heparin Anti-Xa Level POC ABG pH POC ABG pCO2 POC ABG pO2 Sodium 147 H Potassium Chloride 110.9 H Carbon Dioxide 19 L BUN Creatinine Glucose 139 H POC Glucose 144 H Calcium 7.3 L Phosphorus 2.3 L Magnesium AST C-Reactive Protein Total Protein Albumin Lipase 143 H Urine WBC (Auto) Urine Chloride Urine Total Protein 10/16/16 10/16/16 10/16/16 05:03 05:41 05:58 WBC 16.5 H RBC 3.36 L Hgb Hct MCV 98 H RDW 13.1 L Plt Count Lymph % (Auto) 8.5 L [place] % (Auto) 7.6 H [place] # 1.3 H Seg Neutrophils % 83.3 H Seg Neuts % (Manual) Lymphocytes % (Manual) Monocytes % (Manual) Seg Neutrophils # 13.8 H Seg Neutrophils # Man Lymphocytes # (Manual) Monocytes # (Manual) Eosinophils # (Manual) PT INR APTT Heparin Anti-Xa Level POC ABG pH POC ABG pCO2 30.7 L POC ABG pO2 128 H Sodium Potassium Chloride Carbon Dioxide BUN Creatinine Glucose POC Glucose 131 H Calcium Phosphorus Magnesium AST C-Reactive Protein Total Protein Albumin Lipase Urine WBC (Auto) Urine Chloride Urine Total Protein 10/16/16 10/16/16 10/16/16 06:32 09:27 09:35 WBC RBC Hgb Hct MCV RDW Plt Count Lymph % (Auto) [place] % (Auto) [place] # Seg Neutrophils % Seg Neuts % (Manual) Lymphocytes % (Manual) Monocytes % (Manual) Seg Neutrophils # Seg Neutrophils # Man Lymphocytes # (Manual) Monocytes # (Manual) Eosinophils # (Manual) PT INR APTT Heparin Anti-Xa Level POC ABG pH POC ABG pCO2 32.8 L POC ABG pO2 137 H Sodium Potassium Chloride Carbon Dioxide BUN Creatinine Glucose POC Glucose 121 H 150 H Calcium Phosphorus Magnesium AST C-Reactive Protein Total Protein Albumin Lipase Urine WBC (Auto) Urine Chloride Urine Total Protein 10/16/16 10/16/16 10/16/16 10:47 13:27 14:24 WBC RBC Hgb Hct MCV RDW Plt Count Lymph % (Auto) [place] % (Auto) [place] # Seg Neutrophils % Seg Neuts % (Manual) Lymphocytes % (Manual) Monocytes % (Manual) Seg Neutrophils # Seg Neutrophils # Man Lymphocytes # (Manual) Monocytes # (Manual) Eosinophils # (Manual) PT INR APTT Heparin Anti-Xa Level POC ABG pH POC ABG pCO2 POC ABG pO2 Sodium Potassium Chloride Carbon Dioxide BUN Creatinine Glucose POC Glucose 184 H 171 H 174 H Calcium Phosphorus Magnesium AST C-Reactive Protein Total Protein Albumin Lipase Urine WBC (Auto) Urine Chloride Urine Total Protein 10/16/16 10/16/16 10/16/16 15:48 16:26 18:17 WBC RBC Hgb Hct MCV RDW Plt Count Lymph % (Auto) [place] % (Auto) [place] # Seg Neutrophils % Seg Neuts % (Manual) Lymphocytes % (Manual) Monocytes % (Manual) Seg Neutrophils # Seg Neutrophils # Man Lymphocytes # (Manual) Monocytes # (Manual) Eosinophils # (Manual) PT INR APTT Heparin Anti-Xa Level POC ABG pH POC ABG pCO2 POC ABG pO2 Sodium Potassium Chloride Carbon Dioxide BUN Creatinine Glucose POC Glucose 205 H 204 H 234 H Calcium Phosphorus Magnesium AST C-Reactive Protein Total Protein Albumin Lipase Urine WBC (Auto) Urine Chloride Urine Total Protein 10/16/16 10/16/16 10/16/16 19:40 20:33 21:36 WBC RBC Hgb Hct MCV RDW Plt Count Lymph % (Auto) [place] % (Auto) [place] # Seg Neutrophils % Seg Neuts % (Manual) Lymphocytes % (Manual) Monocytes % (Manual) Seg Neutrophils # Seg Neutrophils # Man Lymphocytes # (Manual) Monocytes # (Manual) Eosinophils # (Manual) PT INR APTT Heparin Anti-Xa Level POC ABG pH POC ABG pCO2 POC ABG pO2 Sodium Potassium Chloride Carbon Dioxide BUN Creatinine Glucose POC Glucose 167 H 153 H 158 H Calcium Phosphorus Magnesium AST C-Reactive Protein Total Protein Albumin Lipase Urine WBC (Auto) Urine Chloride Urine Total Protein 10/16/16 10/16/16 10/17/16 22:54 23:48 00:47 WBC RBC Hgb Hct MCV RDW Plt Count Lymph % (Auto) [place] % (Auto) [place] # Seg Neutrophils % Seg Neuts % (Manual) Lymphocytes % (Manual) Monocytes % (Manual) Seg Neutrophils # Seg Neutrophils # Man Lymphocytes # (Manual) Monocytes # (Manual) Eosinophils # (Manual) PT INR APTT Heparin Anti-Xa Level POC ABG pH POC ABG pCO2 POC ABG pO2 Sodium Potassium Chloride Carbon Dioxide BUN Creatinine Glucose POC Glucose 180 H 207 H 196 H Calcium Phosphorus Magnesium AST C-Reactive Protein Total Protein Albumin Lipase Urine WBC (Auto) Urine Chloride Urine Total Protein 10/17/16 10/17/16 10/17/16 01:57 02:49 03:50 WBC RBC Hgb Hct MCV RDW Plt Count Lymph % (Auto) [place] % (Auto) [place] # Seg Neutrophils % Seg Neuts % (Manual) Lymphocytes % (Manual) Monocytes % (Manual) Seg Neutrophils # Seg Neutrophils # Man Lymphocytes # (Manual) Monocytes # (Manual) Eosinophils # (Manual) PT INR APTT Heparin Anti-Xa Level POC ABG pH POC ABG pCO2 POC ABG pO2 Sodium Potassium Chloride Carbon Dioxide BUN Creatinine Glucose POC Glucose 180 H 151 H 106 H Calcium Phosphorus Magnesium AST C-Reactive Protein Total Protein Albumin Lipase Urine WBC (Auto) Urine Chloride Urine Total Protein 10/17/16 10/17/16 10/17/16 04:59 06:03 06:35 WBC RBC Hgb Hct MCV RDW Plt Count Lymph % (Auto) [place] % (Auto) [place] # Seg Neutrophils % Seg Neuts % (Manual) Lymphocytes % (Manual) Monocytes % (Manual) Seg Neutrophils # Seg Neutrophils # Man Lymphocytes # (Manual) Monocytes # (Manual) Eosinophils # (Manual) PT INR APTT Heparin Anti-Xa Level POC ABG pH 7.453 H POC ABG pCO2 30.1 L POC ABG pO2 111 H Sodium Potassium Chloride Carbon Dioxide BUN Creatinine Glucose POC Glucose 145 H 157 H Calcium Phosphorus Magnesium AST C-Reactive Protein Total Protein Albumin Lipase Urine WBC (Auto) Urine Chloride Urine Total Protein 10/17/16 10/17/16 10/17/16 07:08 07:11 08:01 WBC RBC Hgb Hct MCV RDW Plt Count Lymph % (Auto) [place] % (Auto) [place] # Seg Neutrophils % Seg Neuts % (Manual) Lymphocytes % (Manual) Monocytes % (Manual) Seg Neutrophils # Seg Neutrophils # Man Lymphocytes # (Manual) Monocytes # (Manual) Eosinophils # (Manual) PT INR APTT Heparin Anti-Xa Level POC ABG pH POC ABG pCO2 POC ABG pO2 Sodium 147 H Potassium Chloride 113.8 H Carbon Dioxide 19 L BUN Creatinine Glucose 136 H POC Glucose 136 H 152 H Calcium 7.7 L Phosphorus Magnesium AST C-Reactive Protein Total Protein Albumin Lipase Urine WBC (Auto) Urine Chloride Urine Total Protein 10/17/16 10/17/16 10/17/16 08:23 09:17 09:53 WBC 18.1 H RBC 3.01 L Hgb 9.7 L Hct 29.4 L MCV 98 H RDW Plt Count 116 L Lymph % (Auto) [place] % (Auto) [place] # Seg Neutrophils % Seg Neuts % (Manual) 77.0 H Lymphocytes % (Manual) 4.0 L Monocytes % (Manual) 12.0 H Seg Neutrophils # Seg Neutrophils # Man 13.9 H Lymphocytes # (Manual) 0.7 L Monocytes # (Manual) 2.2 H Eosinophils # (Manual) PT INR APTT Heparin Anti-Xa Level POC ABG pH POC ABG pCO2 POC ABG pO2 Sodium Potassium Chloride Carbon Dioxide BUN Creatinine Glucose POC Glucose 148 H 137 H Calcium Phosphorus Magnesium AST C-Reactive Protein Total Protein Albumin Lipase Urine WBC (Auto) Urine Chloride Urine Total Protein 10/17/16 10/17/16 10/17/16 11:43 16:07 17:42 WBC RBC Hgb Hct MCV RDW Plt Count Lymph % (Auto) [place] % (Auto) [place] # Seg Neutrophils % Seg Neuts % (Manual) Lymphocytes % (Manual) Monocytes % (Manual) Seg Neutrophils # Seg Neutrophils # Man Lymphocytes # (Manual) Monocytes # (Manual) Eosinophils # (Manual) PT 16.4 H INR 1.33 H APTT 38.8 H Heparin Anti-Xa Level POC ABG pH POC ABG pCO2 POC ABG pO2 Sodium Potassium Chloride Carbon Dioxide BUN Creatinine Glucose POC Glucose 179 H 153 H Calcium Phosphorus Magnesium AST C-Reactive Protein Total Protein Albumin Lipase Urine WBC (Auto) Urine Chloride Urine Total Protein 10/17/16 10/18/16 10/18/16 22:54 04:37 05:39 WBC RBC Hgb Hct MCV RDW Plt Count Lymph % (Auto) [place] % (Auto) [place] # Seg Neutrophils % Seg Neuts % (Manual) Lymphocytes % (Manual) Monocytes % (Manual) Seg Neutrophils # Seg Neutrophils # Man Lymphocytes # (Manual) Monocytes # (Manual) Eosinophils # (Manual) PT INR APTT Heparin Anti-Xa Level 0.27 L POC ABG pH 7.454 H POC ABG pCO2 30.8 L POC ABG pO2 115 H Sodium Potassium Chloride Carbon Dioxide BUN Creatinine Glucose POC Glucose 69 L Calcium Phosphorus Magnesium AST C-Reactive Protein Total Protein Albumin Lipase Urine WBC (Auto) Urine Chloride Urine Total Protein 10/18/16 10/18/16 10/18/16 06:46 06:46 06:46 WBC 20.5 H RBC 2.62 L Hgb 8.4 L Hct 26.0 L MCV 100 H RDW Plt Count Lymph % (Auto) [place] % (Auto) [place] # Seg Neutrophils % Seg Neuts % (Manual) 75.0 H Lymphocytes % (Manual) 9.0 L Monocytes % (Manual) 14.0 H Seg Neutrophils # Seg Neutrophils # Man 15.4 H Lymphocytes # (Manual) Monocytes # (Manual) 2.9 H Eosinophils # (Manual) PT INR APTT Heparin Anti-Xa Level POC ABG pH POC ABG pCO2 POC ABG pO2 Sodium Potassium Chloride 110.6 H Carbon Dioxide BUN Creatinine 1.3 H Glucose 153 H POC Glucose Calcium 8.0 L Phosphorus Magnesium 1.6 L AST C-Reactive Protein Total Protein Albumin Lipase Urine WBC (Auto) Urine Chloride Urine Total Protein 10/18/16 10/18/16 10/18/16 07:30 11:37 17:51 WBC RBC Hgb Hct MCV RDW Plt Count Lymph % (Auto) [place] % (Auto) [place] # Seg Neutrophils % Seg Neuts % (Manual) Lymphocytes % (Manual) Monocytes % (Manual) Seg Neutrophils # Seg Neutrophils # Man Lymphocytes # (Manual) Monocytes # (Manual) Eosinophils # (Manual) PT INR APTT Heparin Anti-Xa Level POC ABG pH POC ABG pCO2 POC ABG pO2 Sodium Potassium Chloride Carbon Dioxide BUN Creatinine Glucose POC Glucose 162 H 156 H 164 H Calcium Phosphorus Magnesium AST C-Reactive Protein Total Protein Albumin Lipase Urine WBC (Auto) Urine Chloride Urine Total Protein 10/18/16 10/19/16 10/19/16 23:44 03:59 05:13 WBC 18.2 H RBC 2.76 L Hgb 9.0 L Hct 27.7 L MCV 100 H RDW Plt Count Lymph % (Auto) [place] % (Auto) [place] # Seg Neutrophils % Seg Neuts % (Manual) 76.0 H Lymphocytes % (Manual) 10.0 L Monocytes % (Manual) Seg Neutrophils # Seg Neutrophils # Man 13.8 H Lymphocytes # (Manual) Monocytes # (Manual) Eosinophils # (Manual) PT INR APTT Heparin Anti-Xa Level POC ABG pH POC ABG pCO2 32.2 L POC ABG pO2 128 H Sodium Potassium Chloride Carbon Dioxide BUN Creatinine Glucose POC Glucose 278 H Calcium Phosphorus Magnesium AST C-Reactive Protein Total Protein Albumin Lipase Urine WBC (Auto) Urine Chloride Urine Total Protein 10/19/16 10/19/16 10/19/16 06:01 06:30 12:20 WBC RBC Hgb Hct MCV RDW Plt Count Lymph % (Auto) [place] % (Auto) [place] # Seg Neutrophils % Seg Neuts % (Manual) Lymphocytes % (Manual) Monocytes % (Manual) Seg Neutrophils # Seg Neutrophils # Man Lymphocytes # (Manual) Monocytes # (Manual) Eosinophils # (Manual) PT INR APTT Heparin Anti-Xa Level POC ABG pH POC ABG pCO2 POC ABG pO2 Sodium Potassium Chloride Carbon Dioxide 18 L BUN Creatinine 1.3 H Glucose 262 H POC Glucose 261 H 349 H Calcium 7.7 L Phosphorus 4.8 H D Magnesium AST C-Reactive Protein Total Protein Albumin Lipase Urine WBC (Auto) Urine Chloride Urine Total Protein 10/19/16 10/20/16 10/20/16 16:48 00:17 05:20 WBC 22.5 H RBC 2.80 L Hgb 8.9 L Hct 28.3 L MCV 101 H RDW Plt Count Lymph % (Auto) [place] % (Auto) [place] # Seg Neutrophils % Seg Neuts % (Manual) Lymphocytes % (Manual) 10.0 L Monocytes % (Manual) Seg Neutrophils # Seg Neutrophils # Man 13.3 H Lymphocytes # (Manual) Monocytes # (Manual) 1.1 H Eosinophils # (Manual) 0.7 H PT INR APTT Heparin Anti-Xa Level POC ABG pH POC ABG pCO2 POC ABG pO2 Sodium Potassium Chloride Carbon Dioxide BUN Creatinine Glucose POC Glucose 248 H 346 H Calcium Phosphorus Magnesium AST C-Reactive Protein Total Protein Albumin Lipase Urine WBC (Auto) Urine Chloride Urine Total Protein 10/20/16 10/20/16 10/20/16 05:20 05:20 06:05 WBC RBC Hgb Hct MCV RDW Plt Count Lymph % (Auto) [place] % (Auto) [place] # Seg Neutrophils % Seg Neuts % (Manual) Lymphocytes % (Manual) Monocytes % (Manual) Seg Neutrophils # Seg Neutrophils # Man Lymphocytes # (Manual) Monocytes # (Manual) Eosinophils # (Manual) PT INR APTT Heparin Anti-Xa Level 0.20 L POC ABG pH POC ABG pCO2 POC ABG pO2 Sodium Potassium Chloride Carbon Dioxide BUN 20 H Creatinine Glucose 374 H POC Glucose 337 H Calcium 8.3 L Phosphorus Magnesium AST C-Reactive Protein Total Protein Albumin Lipase Urine WBC (Auto) Urine Chloride Urine Total Protein Allied health notes reviewed: RT Critical care time in (mins) excluding proc time.: 31 Critical care attestation.: If time is entered above; I have spent that time in minutes in the direct care of this critically ill patient, excluding procedure time.
--- NOTE | 2016-10-20 13:51 | Progress Note ---
Assessment and Plan Assessment and plan: 66-year-old woman who presented with lethargy and altered mental status she deteriorated and was intubated and in emergency room, she was managed for DKA and she also developed sepsis due to UTI and right lower extremity ischemia 1. Acute respiratory failure with hypercapnia Continue events 2. Diabetes DKA has now resolved, still having hyperglycemia will manage her insulins 3. Sepsis Suspected due to UTI, urine has only grown Paula, sputum cultures grew group B strep, continue broad-spectrum antibiotics, infectious disease input appreciated 4. 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 Vascular surgery input appreciated, too ill for any surgical intervention, continue heparin drip Given her multiple medical illnesses, her prognosis is quite poor Critical care time 32 minutes History Interval history: Patient has not improved, she has not been wheezing able from the ventilator, Hospitalist Physical - Physical exam Narrative exam: General: Appears ill, intubated sedated HEENT: MMM, EOMI cardiac: S1-S2 heard lungs: Ventilated breath sounds abdomen: soft, nontender, nondistended bowel sounds positive extremities: Right lower extremity has no distal pulses, cold to touch Skin: no rash or lesion Neuro: Intubated sedated - Constitutional Vitals: Temp Pulse Resp BP Pulse Ox 102 F H 108 H 21 133/56 98 10/20/16 12:00 10/20/16 11:58 10/20/16 11:00 10/20/16 11:58 10/20/16 10:45 General appearance: Present: other (intubated) Results - Labs CBC & Chem 7: 11/24/16 04:50 11/24/16 04:50 Labs: Laboratory Last Values WBC 22.5 K/mm3 (4.5-11.0) H 10/20/16 05:20 RBC 2.80 M/mm3 (3.65-5.03) L 10/20/16 05:20 Hgb 8.9 gm/dl (10.1-14.3) L 10/20/16 05:20 Hct 28.3 % (30.3-42.9) L 10/20/16 05:20 MCV 101 fl (79-97) H 10/20/16 05:20 MCH 32 pg (28-32) 10/20/16 05:20 MCHC 32 % (30-34) 10/20/16 05:20 RDW 13.2 % (13.2-15.2) 10/20/16 05:20 Plt Count 363 K/mm3 (140-440) 10/20/16 05:20 Lymph % (Auto) TNR 10/17/16 07:08 [place] % (Auto) TNR 10/17/16 07:08 Eos % (Auto) TNR 10/17/16 07:08 Baso % (Auto) TNR 10/17/16 07:08 Lymph # TNR 10/17/16 07:08 [place] # TNR 10/17/16 07:08 Eos # TNR 10/17/16 07:08 Baso # TNR 10/17/16 07:08 Add Manual Diff Complete 10/20/16 05:20 Total Counted 100 10/20/16 05:20 Seg Neutrophils % TNR 10/17/16 07:08 Seg Neuts % (Manual) 59.0 % (40.0-70.0) 10/20/16 05:20 Band Neutrophils % 20.0 % 10/20/16 05:20 Lymphocytes % (Manual) 10.0 % (13.4-35.0) L 10/20/16 05:20 Reactive Lymphs % (Man) 0 % 10/20/16 05:20 Monocytes % (Manual) 5.0 % (0.0-7.3) 10/20/16 05:20 Eosinophils % (Manual) 3.0 % (0.0-4.3) 10/20/16 05:20 Basophils % (Manual) 0 % (0.0-1.8) 10/20/16 05:20 Metamyelocytes % 0 % 10/20/16 05:20 Myelocytes % 0 % 10/20/16 05:20 Promyelocytes % 3.0 % 10/20/16 05:20 Blast Cells % 0 % 10/20/16 05:20 Nucleated RBC % Not Reportable 10/20/16 05:20 Seg Neutrophils # TNR 10/17/16 07:08 Seg Neutrophils # Man 13.3 K/mm3 (1.8-7.7) H 10/20/16 05:20 Band Neutrophils # 4.5 K/mm3 10/20/16 05:20 Lymphocytes # (Manual) 2.3 K/mm3 (1.2-5.4) 10/20/16 05:20 Abs React Lymphs (Man) 0.0 K/mm3 10/20/16 05:20 Monocytes # (Manual) 1.1 K/mm3 (0.0-0.8) H 10/20/16 05:20 Eosinophils # (Manual) 0.7 K/mm3 (0.0-0.4) H 10/20/16 05:20 Basophils # (Manual) 0.0 K/mm3 (0.0-0.1) 10/20/16 05:20 Metamyelocytes # 0.0 K/mm3 10/20/16 05:20 Myelocytes # 0.0 K/mm3 10/20/16 05:20 Promyelocytes # 0.7 K/mm3 10/20/16 05:20 Blast Cells # 0.0 K/mm3 10/20/16 05:20 WBC Morphology Not Reportable 10/20/16 05:20 Hypersegmented Neuts Not Reportable 10/20/16 05:20 Hyposegmented Neuts Not Reportable 10/20/16 05:20 Hypogranular Neuts Not Reportable 10/20/16 05:20 Hypersegmented Polys TNR 10/17/16 07:08 Smudge Cells Not Reportable 10/20/16 05:20 Toxic Granulation Not Reportable 10/20/16 05:20 Toxic Vacuolation Not Reportable 10/20/16 05:20 Dohle Bodies Not Reportable 10/20/16 05:20 Pelger-Huet Anomaly Not Reportable 10/20/16 05:20 [place] Rods Not Reportable 10/20/16 05:20 Platelet Estimate Appears normal 10/20/16 05:20 Clumped Platelets Not Reportable 10/20/16 05:20 Plt Clumps, EDTA Not Reportable 10/20/16 05:20 Large Platelets Few 10/20/16 05:20 Giant Platelets Not Reportable 10/20/16 05:20 Platelet Satelliting Not Reportable 10/20/16 05:20 Plt Morphology Comment Not Reportable 10/20/16 05:20 RBC Morphology Not Reportable 10/20/16 05:20 Dimorphic RBCs Not Reportable 10/20/16 05:20 Polychromasia Not Reportable 10/20/16 05:20 Hypochromasia 1+ 10/20/16 05:20 Poikilocytosis Not Reportable 10/20/16 05:20 Basophilic Stippling TNR 10/17/16 07:08 Anisocytosis 1+ 10/20/16 05:20 Microcytosis Not Reportable 10/20/16 05:20 Macrocytosis Not Reportable 10/20/16 05:20 Spherocytes Not Reportable 10/20/16 05:20 Pappenheimer Bodies Not Reportable 10/20/16 05:20 Sickle Cells Not Reportable 10/20/16 05:20 Target Cells Not Reportable 10/20/16 05:20 Tear Drop Cells Not Reportable 10/20/16 05:20 Ovalocytes Not Reportable 10/20/16 05:20 Stomatocytes Few 10/20/16 05:20 Helmet Cells Not Reportable 10/20/16 05:20 Higgins-Rutherford Bodies Not Reportable 10/20/16 05:20 [place] Rings Not Reportable 10/20/16 05:20 [place] Cells Not Reportable 10/20/16 05:20 Bite Cells Not Reportable 10/20/16 05:20 Crenated Cell Not Reportable 10/20/16 05:20 Elliptocytes Not Reportable 10/20/16 05:20 Acanthocytes (Spur) Not Reportable 10/20/16 05:20 Rouleaux Not Reportable 10/20/16 05:20 Hemoglobin C Crystals Not Reportable 10/20/16 05:20 Schistocytes Not Reportable 10/20/16 05:20 Malaria parasites Not Reportable 10/20/16 05:20 David Bodies Not Reportable 10/20/16 05:20 Hem Pathologist Commnt No 10/20/16 05:20 PT 16.4 Sec. (12.2-14.9) H 10/17/16 16:07 INR 1.33 (0.87-1.13) H 10/17/16 16:07 APTT 38.8 Sec. (24.2-36.6) H 10/17/16 16:07 Heparin Anti-Xa Level 0.20 U.I./ml (0.3-0.7) L 10/20/16 05:20 POC ABG pH 7.382 (7.35-7.45) 10/19/16 03:59 POC ABG pCO2 32.2 (35-45) L 10/19/16 03:59 POC ABG pO2 128 (80-105) H 10/19/16 03:59 POC ABG HCO3 19.1 10/19/16 03:59 POC ABG Total CO2 20 10/19/16 03:59 POC ABG O2 Sat 99 10/19/16 03:59 POC ABG Base Excess -6 10/19/16 03:59 VBG pH 7.020 (7.320-7.420) L* 10/13/16 04:22 FiO2 30 % 10/19/16 03:59 Sodium 145 mmol/L (137-145) 10/19/16 06:30 Potassium 3.7 mmol/L (3.6-5.0) 10/19/16 06:30 Chloride 105.5 mmol/L (98-107) 10/19/16 06:30 Carbon Dioxide 22 mmol/L (22-30) 10/20/16 05:20 Anion Gap 25 mmol/L 10/19/16 06:30 BUN 20 mg/dL (7-17) H 10/20/16 05:20 Creatinine 1.2 mg/dL (0.7-1.2) 10/20/16 05:20 Estimated GFR 55 ml/min 10/20/16 05:20 BUN/Creatinine Ratio 16.66 % 10/20/16 05:20 Glucose 374 mg/dL (65-100) H 10/20/16 05:20 POC Glucose 337 (70-105) H 10/20/16 06:05 Osmolality 332 Mosm/kg 10/14/16 07:03 Lactic Acid 1.8 mmol/L (0.7-2.0) 10/14/16 07:03 Calcium 8.3 mg/dL (8.4-10.2) L 10/20/16 05:20 Phosphorus 3.5 mg/dL (2.5-4.5) D 10/20/16 05:20 Magnesium 1.9 mg/dL (1.7-2.3) 10/20/16 05:20 Total Bilirubin 0.5 mg/dL (0.1-1.2) 10/15/16 04:40 AST 79 units/L (5-40) H 10/15/16 04:40 ALT 27 units/L (7-56) 10/15/16 04:40 Alkaline Phosphatase 80 units/L (35-129) 10/15/16 04:40 Ammonia 35.0 umol/L (25-60) 10/13/16 05:40 Total Creatine Kinase 107 units/L (30-135) 10/13/16 04:22 CK-MB (CK-2) 3.1 ng/mL (0.0-4.0) 10/13/16 04:22 CK-MB (CK-2) Rel Index 2.8 (0-4) 10/13/16 04:22 Troponin T < 0.010 ng/mL (0.00-0.029) 10/14/16 18:55 C-Reactive Protein 10.50 mg/dL (0.00-1.30) H 10/13/16 16:14 Total Protein 5.5 g/dL (6.3-8.2) L 10/15/16 04:40 Albumin 3.0 g/dL (3.9-5) L 10/15/16 04:40 Albumin/Globulin Ratio 1.2 % 10/15/16 04:40 Lipase 143 units/L (13-60) H 10/16/16 04:14 Urine Color Yellow (Yellow) 10/15/16 11:05 Urine Turbidity Cloudy (Clear) 10/15/16 11:05 Urine pH 5.0 (5.0-7.0) 10/15/16 11:05 Ur Specific [place] 1.009 (1.003-1.030) 10/15/16 11:05 Urine Protein 30 mg/dl mg/dL (Negative) 10/15/16 11:05 Urine Glucose (UA) 150 mg/dL (Negative) 10/15/16 11:05 Urine Ketones Neg mg/dL (Negative) 10/15/16 11:05 Urine Blood Lg (Negative) 10/15/16 11:05 Urine Nitrite Neg (Negative) 10/15/16 11:05 Urine Bilirubin Neg (Negative) 10/15/16 11:05 Urine Urobilinogen < 2.0 mg/dL (<2.0) 10/15/16 11:05 Ur Leukocyte Esterase Neg (Negative) 10/15/16 11:05 Urine WBC (Auto) 7.0 /HPF (0.0-6.0) H 10/15/16 11:05 Urine RBC (Auto) 7.0 /HPF (0.0-6.0) 10/15/16 11:05 U Epithel Cells (Auto) 1.0 /HPF (0-13.0) 10/15/16 11:05 Urine Mucus Few /HPF 10/15/16 11:05 Urine Yeast (Budding) 2+ /HPF 10/15/16 11:05 Urine Osmolality 487 Mosm/kg 10/13/16 Unknown Urine Creatinine < 4.2 mg/dL (0.1-20.0) 10/13/16 Unknown Protein/Creatinin Ratio 0.00 10/13/16 Unknown Urine Sodium 10 mEq/L 10/13/16 Unknown Urine Potassium 1.00 mEq/L 10/13/16 Unknown Urine Chloride 10.0 mEq/L (110-250) L 10/13/16 Unknown Urine Total Protein < 4 mg/dL (5-11.8) L 10/13/16 Unknown Ketones 107.3 mg/dL (0.2-2.8) H 10/13/16 04:22
[2016-10-20] MEDS: AZACTAM/NS 1 GM/50 ML 1 GM/50 ML VIAL IV SCH ×3 (13:57→22:30)
[2016-10-20] MEDS ORDERED: LEVEMIR SUB-Q SCH (13:59)
[2016-10-20] MEDS: CLEOCIN 600 MG/50 mL 600 MG/50 ML BAG IV SCH ×3 (15:05→22:31)
--- NOTE | 2016-10-20 15:12 | Progress Note ---
Assessment and Plan (1) Acute on chronic renal failure Current Visit: Yes Status: Acute Plan to address problem: stable kidney function, good UOP Obtain daily weights Renally dose medications Strict I/O monitoring, stewart catheter present Will continue to monitor renal function closely (2) DKA (diabetic ketoacidoses) Current Visit: Yes Status: Acute Qualifiers: Diabetes mellitus type: D Diabetes mellitus complication detail: D Plan to address problem: resolved (3) Respiratory failure Current Visit: Yes Status: Acute Qualifiers: Chronicity: C Respiratory failure complication: R Plan to address problem: Intubated will sign off, please re consult as needed. Subjective Date of service: 10/20/16 Principal diagnosis: respiratory failure on mechanical ventilatory support, DKA Interval history: patient is intubated, does not follow commands, no family at bedside. Objective - Vital Signs Vital signs: Vital Signs - 12hr 10/20/16 10/20/16 10/20/16 03:30 04:00 04:30 Temperature Pulse Rate 115 H 107 H 114 H Pulse Rate [ Apical] Respiratory 18 20 22 Rate Blood Pressure 128/55 135/52 147/54 O2 Sat by Pulse 100 100 100 Oximetry 10/20/16 10/20/16 10/20/16 05:00 05:30 06:00 Temperature Pulse Rate 127 H 131 H 105 H Pulse Rate [ Apical] Respiratory 15 27 H 22 Rate Blood Pressure 147/54 177/82 164/74 O2 Sat by Pulse 100 100 Oximetry 10/20/16 10/20/16 10/20/16 06:30 07:00 07:20 Temperature Pulse Rate 100 H 97 H 98 H Pulse Rate [ Apical] Respiratory 20 20 Rate Blood Pressure 139/61 139/60 130/60 O2 Sat by Pulse 100 100 98 Oximetry 10/20/16 10/20/16 10/20/16 07:30 08:00 08:30 Temperature 101.7 F H Pulse Rate 98 H 99 H 113 H Pulse Rate [ 987 H Apical] Respiratory 20 21 24 Rate Blood Pressure 142/62 146/63 160/70 O2 Sat by Pulse 100 100 Oximetry 10/20/16 10/20/16 10/20/16 09:00 09:30 09:40 Temperature Pulse Rate 113 H 111 H Pulse Rate [ Apical] Respiratory 24 22 50 H Rate Blood Pressure 148/64 132/59 O2 Sat by Pulse 100 100 Oximetry 10/20/16 10/20/16 10/20/16 10:00 10:30 10:45 Temperature Pulse Rate 108 H 108 H 102 H Pulse Rate [ Apical] Respiratory 22 22 Rate Blood Pressure 135/58 131/54 O2 Sat by Pulse 99 98 98 Oximetry 10/20/16 10/20/16 10/20/16 11:00 11:58 12:00 Temperature 102 F H Pulse Rate 106 H 108 H Pulse Rate [ Apical] Respiratory 21 Rate Blood Pressure 137/59 133/56 O2 Sat by Pulse Oximetry - General Appearance General appearance: intubated EENT: ATNC, PERRL, mucous membranes dry Neck: no JVD Respiratory: Present: Clear to Ascultation Cardiology: regular, S1S2 Gastrointestinal: normoactive bowel sounds, no tenderness, no distended Integumentary: no rash, warm and dry Neurologic: other (awake, does not follow commands) Musculoskeletal: other (no edema in BLE) Psychiatric: other (does not answer questions) - Lab 10/20/16 05:20 10/20/16 05:20 Most recent lab results Calcium 8.3 mg/dL (8.4-10.2) L 10/20/16 05:20 Phosphorus 3.5 mg/dL (2.5-4.5) D 10/20/16 05:20 Magnesium 1.9 mg/dL (1.7-2.3) 10/20/16 05:20 Urine Creatinine < 4.2 mg/dL (0.1-20.0) 10/13/16 Unknown Urine Sodium 10 mEq/L 10/13/16 Unknown Urine Total Protein < 4 mg/dL (5-11.8) L 10/13/16 Unknown
--- NOTE | 2016-10-20 16:10 | Progress Note ---
Assessment and Plan Pt was admitted, with DKA, pneumonia, sepsis, and acute on CKD. She is presently intubated with AMS. Given her current condition, aggressive arterial intervention has a high risk of morbidity/mortality given severely altered mental status, and intubated status as she would require fasciotomy following any revascularization. There continues to be no signs of incidental movement on exam. Continues to be on heparin drip. Will continue to follow. Subjective Date of service: 10/20/16 Principal diagnosis: respiratory failure on mechanical ventilatory support, DKA Interval history: No change in mental status since yesterday. Obtunded. Does not follow commands. Right foot cool to above ankle. Unable to assess motor or sensory function due to mental status. On heparin drip. Left foot warm. Objective - Constitutional Vitals: Vital Signs - 12hr 10/20/16 10/20/16 10/20/16 04:30 05:00 05:30 Temperature Pulse Rate 114 H 127 H 131 H Pulse Rate [ Apical] Pulse Rate [ From Monitor] Respiratory 22 15 27 H Rate Blood Pressure 147/54 147/54 177/82 O2 Sat by Pulse 100 100 Oximetry 10/20/16 10/20/16 10/20/16 06:00 06:30 07:00 Temperature Pulse Rate 105 H 100 H 97 H Pulse Rate [ Apical] Pulse Rate [ From Monitor] Respiratory 22 20 20 Rate Blood Pressure 164/74 139/61 139/60 O2 Sat by Pulse 100 100 100 Oximetry 10/20/16 10/20/16 10/20/16 07:20 07:30 08:00 Temperature 101.7 F H Pulse Rate 98 H 98 H 99 H Pulse Rate [ 98 H Apical] Pulse Rate [ 98 H From Monitor] Respiratory 20 21 Rate Blood Pressure 130/60 142/62 146/63 O2 Sat by Pulse 98 100 Oximetry 10/20/16 10/20/16 10/20/16 08:30 09:00 09:30 Temperature Pulse Rate 113 H 113 H 111 H Pulse Rate [ Apical] Pulse Rate [ From Monitor] Respiratory 24 24 22 Rate Blood Pressure 160/70 148/64 132/59 O2 Sat by Pulse 100 100 100 Oximetry 10/20/16 10/20/16 10/20/16 09:40 10:00 10:30 Temperature Pulse Rate 108 H 108 H Pulse Rate [ Apical] Pulse Rate [ From Monitor] Respiratory 50 H 22 22 Rate Blood Pressure 135/58 131/54 O2 Sat by Pulse 99 98 Oximetry 10/20/16 10/20/16 10/20/16 10:45 11:00 11:30 Temperature Pulse Rate 102 H 106 H 105 H Pulse Rate [ 93 H Apical] Pulse Rate [ 93 H From Monitor] Respiratory 21 22 Rate Blood Pressure 137/59 133/56 O2 Sat by Pulse 98 100 Oximetry 10/20/16 10/20/16 10/20/16 11:58 12:00 12:30 Temperature 102 F H Pulse Rate 108 H 106 H 93 H Pulse Rate [ Apical] Pulse Rate [ From Monitor] Respiratory 21 20 Rate Blood Pressure 133/56 131/57 130/54 O2 Sat by Pulse 98 Oximetry 10/20/16 10/20/16 10/20/16 13:00 13:30 14:00 Temperature Pulse Rate 98 H 100 H 101 H Pulse Rate [ Apical] Pulse Rate [ From Monitor] Respiratory 23 22 21 Rate Blood Pressure 136/58 139/61 135/63 O2 Sat by Pulse 98 99 99 Oximetry 10/20/16 10/20/16 10/20/16 14:30 15:00 15:10 Temperature Pulse Rate 100 H 100 H 105 H Pulse Rate [ Apical] Pulse Rate [ From Monitor] Respiratory 22 21 Rate Blood Pressure 138/61 145/66 O2 Sat by Pulse 98 98 97 Oximetry General appearance: Present: other (intubated) - EENT ENT: other (intubated) - Respiratory Respiratory effort: other (intubated) Extremities: normal temperature (left lower extremity), normal color (left lower extremity) Extremity abnormal: pulses diminished (nonpalpable pedal pulses bilaterally), other (cool right lower extremity to above ankle with duskiness of the right foot and no evidence of spontaneous motor function) - Psychiatric Psychiatric: other (intubated) - Labs CBC & Chem 7: 10/20/16 05:20 10/20/16 05:20 Labs: Abnormal lab results 10/19/16 10/19/16 10/20/16 Range/Units 12:20 16:48 00:17 WBC (4.5-11.0) K/mm3 RBC (3.65-5.03) M/mm3 Hgb (10.1-14.3) gm/dl Hct (30.3-42.9) % MCV (79-97) fl Lymphocytes % (Manual) (13.4-35.0) % Seg Neutrophils # Man (1.8-7.7) K/mm3 Monocytes # (Manual) (0.0-0.8) K/mm3 Eosinophils # (Manual) (0.0-0.4) K/mm3 Heparin Anti-Xa Level (0.3-0.7) U.I./ml BUN (7-17) mg/dL Glucose (65-100) mg/dL POC Glucose 349 H 248 H 346 H (70-105) Calcium (8.4-10.2) mg/dL 10/20/16 10/20/16 10/20/16 Range/Units 05:20 05:20 05:20 WBC 22.5 H (4.5-11.0) K/mm3 RBC 2.80 L (3.65-5.03) M/mm3 Hgb 8.9 L (10.1-14.3) gm/dl Hct 28.3 L (30.3-42.9) % MCV 101 H (79-97) fl Lymphocytes % (Manual) 10.0 L (13.4-35.0) % Seg Neutrophils # Man 13.3 H (1.8-7.7) K/mm3 Monocytes # (Manual) 1.1 H (0.0-0.8) K/mm3 Eosinophils # (Manual) 0.7 H (0.0-0.4) K/mm3 Heparin Anti-Xa Level 0.20 L (0.3-0.7) U.I./ml BUN 20 H (7-17) mg/dL Glucose 374 H (65-100) mg/dL POC Glucose (70-105) Calcium 8.3 L (8.4-10.2) mg/dL 10/20/16 10/20/16 10/20/16 Range/Units 06:05 11:49 13:59 WBC (4.5-11.0) K/mm3 RBC (3.65-5.03) M/mm3 Hgb (10.1-14.3) gm/dl Hct (30.3-42.9) % MCV (79-97) fl Lymphocytes % (Manual) (13.4-35.0) % Seg Neutrophils # Man (1.8-7.7) K/mm3 Monocytes # (Manual) (0.0-0.8) K/mm3 Eosinophils # (Manual) (0.0-0.4) K/mm3 Heparin Anti-Xa Level 2.00 H (0.3-0.7) U.I./ml BUN (7-17) mg/dL Glucose (65-100) mg/dL POC Glucose 337 H 305 H (70-105) Calcium (8.4-10.2) mg/dL
[2016-10-20] MEDS: HEPARIN/ 0.45% NACL-25,000 UNIT/500 ML 25,000 UNITS/500 ML BAG IV SCH (18:08)
--- NOTE | 2016-10-20 20:05 | Progress Note ---
Subjective Date of service: 10/20/16 Principal diagnosis: respiratory failure on mechanical ventilatory support, DKA Interval history: More awake today. No new issues Vital signs - afebrile. CHEST - [employer] ENTRY CVS - S1S2 ABD - BS_ LABS Reviewed. See lab section ASSESSMENT 1. Sepsis 2. dka 3. resp failure 4. htn RECOMMENDATION cbc/bmp in am continue current iv antibiotics. Objective - Constitutional Vitals: Vital Signs Temp Pulse Resp BP Pulse Ox 98.9 F 87 20 115/50 100 10/20/16 19:53 10/20/16 19:01 10/20/16 18:30 10/20/16 19:01 10/20/16 19:01 Temperature -Last 24 Hours Temperature 98.9 F Temperature 100.2 F Temperature 102 F Temperature 101.7 F - Labs CBC & Chem 7: 10/20/16 05:20 10/20/16 05:20 Labs: Abnormal lab results 10/19/16 10/20/16 10/20/16 Range/Units 16:48 00:17 05:20 WBC 22.5 H (4.5-11.0) K/mm3 RBC 2.80 L (3.65-5.03) M/mm3 Hgb 8.9 L (10.1-14.3) gm/dl Hct 28.3 L (30.3-42.9) % MCV 101 H (79-97) fl Lymphocytes % (Manual) 10.0 L (13.4-35.0) % Seg Neutrophils # Man 13.3 H (1.8-7.7) K/mm3 Monocytes # (Manual) 1.1 H (0.0-0.8) K/mm3 Eosinophils # (Manual) 0.7 H (0.0-0.4) K/mm3 Heparin Anti-Xa Level (0.3-0.7) U.I./ml BUN (7-17) mg/dL Glucose (65-100) mg/dL POC Glucose 248 H 346 H (70-105) Calcium (8.4-10.2) mg/dL 10/20/16 10/20/16 10/20/16 Range/Units 05:20 05:20 06:05 WBC (4.5-11.0) K/mm3 RBC (3.65-5.03) M/mm3 Hgb (10.1-14.3) gm/dl Hct (30.3-42.9) % MCV (79-97) fl Lymphocytes % (Manual) (13.4-35.0) % Seg Neutrophils # Man (1.8-7.7) K/mm3 Monocytes # (Manual) (0.0-0.8) K/mm3 Eosinophils # (Manual) (0.0-0.4) K/mm3 Heparin Anti-Xa Level 0.20 L (0.3-0.7) U.I./ml BUN 20 H (7-17) mg/dL Glucose 374 H (65-100) mg/dL POC Glucose 337 H (70-105) Calcium 8.3 L (8.4-10.2) mg/dL 10/20/16 10/20/16 10/20/16 Range/Units 11:49 13:59 17:56 WBC (4.5-11.0) K/mm3 RBC (3.65-5.03) M/mm3 Hgb (10.1-14.3) gm/dl Hct (30.3-42.9) % MCV (79-97) fl Lymphocytes % (Manual) (13.4-35.0) % Seg Neutrophils # Man (1.8-7.7) K/mm3 Monocytes # (Manual) (0.0-0.8) K/mm3 Eosinophils # (Manual) (0.0-0.4) K/mm3 Heparin Anti-Xa Level 2.00 H (0.3-0.7) U.I./ml BUN (7-17) mg/dL Glucose (65-100) mg/dL POC Glucose 305 H 362 H (70-105) Calcium (8.4-10.2) mg/dL
[2016-10-20] MEDS: MONISTAT VG SCH (22:39)
[2016-10-21] MEDS: LOPRESSOR IV SCH ×4 (02:28→18:20)
[2016-10-21] MEDS: TYLENOL FEEDTUBE PRN ×2 (05:30→11:57)
[2016-10-21 05:52] LABS: Hematocrit 25.6 % (30.3-42.9); Hemoglobin 7.7 gm/dl (10.1-14.3); Mean Corpuscular HGB Conc 30 % (30-34); Mean Corpuscular Hemoglobin 31 pg (28-32); Mean Corpuscular Volume 103 fl (79-97); Platelet Count 362 K/mm3 (140-440); Red Blood Count 2.49 M/mm3 (3.65-5.03); Red Cell Distribution Width 13.8 % (13.2-15.2)
[2016-10-21 05:56] LABS: White Blood Count 22.9 K/mm3 (4.5-11.0)
[2016-10-21] MEDS: AZACTAM/NS 1 GM/50 ML 1 GM/50 ML VIAL IV SCH ×3 (06:13→21:57)
[2016-10-21] MEDS: NOVOLOG SUB-Q SCH ×2 (06:14→11:51)
[2016-10-21] MEDS: CLEOCIN 600 MG/50 mL 600 MG/50 ML BAG IV SCH ×3 (06:25→21:58)
[2016-10-21 06:42] LABS: Basophils % (Manual) 0 % (0.0-1.8); Blastocytes % (Manual) 0 %; Eosinophils % (Manual) 0 % (0.0-4.3)
[2016-10-21 06:43] LABS: Anisocytosis 1+; Diff Status Complete; Hypochromasia 1+
[2016-10-21 09:15] LABS: BUN/Creatinine Ratio 17.85; Chloride 112.4 mmol/L (98-107); Phosphorous 2.7 mg/dL (2.5-4.5); Potassium 3.1 mmol/L (3.6-5.0)
[2016-10-21] MEDS: PEPCID IV SCH ×2 (09:25→21:59)
[2016-10-21] MEDS: VANCOMYCIN VIAL 1,250 MG in NACL 0.9% 250ML 250 ML IV SCH (09:36)
[2016-10-21] MEDS: HEPARIN/ 0.45% NACL-25,000 UNIT/500 ML 25,000 UNITS/500 ML BAG IV SCH (13:08)
--- NOTE | 2016-10-21 14:03 | Progress Note ---
Assessment and Plan Pt was admitted, with DKA, pneumonia, sepsis, and acute on CKD. She is presently intubated with AMS. Given her current condition, aggressive arterial intervention has a high risk of morbidity/mortality given severely altered mental status, and intubated status as she would require fasciotomy following any revascularization. There continues to be no signs of incidental movement on exam. Continues to be on heparin drip. Will continue to follow. Recommend neurology evaluation for persistent altered mental status. Subjective Date of service: 10/21/16 Principal diagnosis: respiratory failure on mechanical ventilatory support, DKA Interval history: No change in mental status since yesterday. Obtunded. Does not follow commands. Right foot cool to ankle. Unable to assess motor or sensory function due to mental status. On heparin drip. Left foot warm. Objective - Constitutional Vitals: Vital Signs - 12hr 10/21/16 10/21/16 10/21/16 02:28 02:30 03:01 Temperature Pulse Rate 87 96 H 111 H Pulse Rate [ Apical] Pulse Rate [ From Monitor] Respiratory 16 25 H Rate Blood Pressure 137/60 153/68 168/77 O2 Sat by Pulse 100 Oximetry 10/21/16 10/21/16 10/21/16 03:30 03:54 04:00 Temperature 101.1 F H Pulse Rate 116 H 113 H 111 H Pulse Rate [ 110 H Apical] Pulse Rate [ 110 H From Monitor] Respiratory 24 21 Rate Blood Pressure 175/67 175/67 155/69 O2 Sat by Pulse 100 100 100 Oximetry 10/21/16 10/21/16 10/21/16 04:30 05:00 05:30 Temperature Pulse Rate 109 H 109 H 109 H Pulse Rate [ Apical] Pulse Rate [ From Monitor] Respiratory 17 23 20 Rate Blood Pressure 151/64 145/64 148/64 O2 Sat by Pulse 100 98 100 Oximetry 10/21/16 10/21/16 10/21/16 05:59 06:00 06:22 Temperature 102.1 F H Pulse Rate 109 H 108 H Pulse Rate [ Apical] Pulse Rate [ From Monitor] Respiratory 11 L Rate Blood Pressure 135/57 152/67 O2 Sat by Pulse 99 Oximetry 10/21/16 10/21/16 10/21/16 06:31 07:00 07:13 Temperature Pulse Rate 87 87 87 Pulse Rate [ Apical] Pulse Rate [ From Monitor] Respiratory 21 24 Rate Blood Pressure 118/53 122/56 122/56 O2 Sat by Pulse 99 98 99 Oximetry 10/21/16 10/21/16 10/21/16 07:30 07:39 08:00 Temperature 101.5 F H Pulse Rate 86 89 Pulse Rate [ 86 Apical] Pulse Rate [ 86 From Monitor] Respiratory 19 20 21 Rate Blood Pressure 123/54 132/56 O2 Sat by Pulse 99 99 98 Oximetry 10/21/16 10/21/16 10/21/16 08:30 09:00 09:30 Temperature Pulse Rate 92 H 95 H 91 H Pulse Rate [ Apical] Pulse Rate [ From Monitor] Respiratory 21 20 20 Rate Blood Pressure 133/57 131/61 130/61 O2 Sat by Pulse 98 98 98 Oximetry 10/21/16 10/21/16 10/21/16 10:00 10:30 11:00 Temperature Pulse Rate 96 H 94 H 98 H Pulse Rate [ Apical] Pulse Rate [ From Monitor] Respiratory 20 20 20 Rate Blood Pressure 135/61 138/63 142/67 O2 Sat by Pulse 98 98 100 Oximetry 10/21/16 10/21/16 10/21/16 11:30 11:58 12:00 Temperature 100.8 F H Pulse Rate 102 H 106 H Pulse Rate [ Apical] Pulse Rate [ From Monitor] Respiratory 13 Rate Blood Pressure 154/74 154/74 O2 Sat by Pulse 100 Oximetry 10/21/16 12:52 Temperature Pulse Rate 99 H Pulse Rate [ Apical] Pulse Rate [ From Monitor] Respiratory Rate Blood Pressure 167/76 O2 Sat by Pulse 100 Oximetry General appearance: Present: other (intubated) - EENT ENT: other (intubated) - Respiratory Respiratory effort: other (intubated) Extremities: normal temperature (left leg/foot), normal color (left leg/foot) Extremity abnormal: other (cool right foot to ankle/dusky forefoot ; no right foot spontaneous motion noted for multiple days) - Psychiatric Psychiatric: other (intubated) - Labs CBC & Chem 7: 10/21/16 05:00 10/21/16 Unknown Labs: Abnormal lab results 10/20/16 10/20/16 10/20/16 Range/Units 11:49 13:59 17:56 WBC (4.5-11.0) K/mm3 RBC (3.65-5.03) M/mm3 Hgb (10.1-14.3) gm/dl Hct (30.3-42.9) % MCV (79-97) fl Seg Neuts % (Manual) (40.0-70.0) % Lymphocytes % (Manual) (13.4-35.0) % Seg Neutrophils # Man (1.8-7.7) K/mm3 Lymphocytes # (Manual) (1.2-5.4) K/mm3 Monocytes # (Manual) (0.0-0.8) K/mm3 Heparin Anti-Xa Level 2.00 H (0.3-0.7) U.I./ml Sodium (137-145) mmol/L Potassium (3.6-5.0) mmol/L Chloride (98-107) mmol/L BUN (7-17) mg/dL Creatinine (0.7-1.2) mg/dL POC Glucose 305 H 362 H (70-105) Calcium (8.4-10.2) mg/dL 10/20/16 10/21/16 10/21/16 Range/Units 23:52 05:00 05:49 WBC 22.9 H (4.5-11.0) K/mm3 RBC 2.49 L (3.65-5.03) M/mm3 Hgb 7.7 L (10.1-14.3) gm/dl Hct 25.6 L (30.3-42.9) % MCV 103 H (79-97) fl Seg Neuts % (Manual) 94.0 H (40.0-70.0) % Lymphocytes % (Manual) 1.0 L (13.4-35.0) % Seg Neutrophils # Man 21.5 H (1.8-7.7) K/mm3 Lymphocytes # (Manual) 0.2 L (1.2-5.4) K/mm3 Monocytes # (Manual) 1.1 H (0.0-0.8) K/mm3 Heparin Anti-Xa Level (0.3-0.7) U.I./ml Sodium (137-145) mmol/L Potassium (3.6-5.0) mmol/L Chloride (98-107) mmol/L BUN (7-17) mg/dL Creatinine (0.7-1.2) mg/dL POC Glucose 252 H 180 H (70-105) Calcium (8.4-10.2) mg/dL 10/21/16 10/21/16 10/21/16 Range/Units 11:47 11:49 Unknown WBC (4.5-11.0) K/mm3 RBC (3.65-5.03) M/mm3 Hgb (10.1-14.3) gm/dl Hct (30.3-42.9) % MCV (79-97) fl Seg Neuts % (Manual) (40.0-70.0) % Lymphocytes % (Manual) (13.4-35.0) % Seg Neutrophils # Man (1.8-7.7) K/mm3 Lymphocytes # (Manual) (1.2-5.4) K/mm3 Monocytes # (Manual) (0.0-0.8) K/mm3 Heparin Anti-Xa Level (0.3-0.7) U.I./ml Sodium 150 H (137-145) mmol/L Potassium 3.1 L (3.6-5.0) mmol/L Chloride 112.4 H (98-107) mmol/L BUN 25 H (7-17) mg/dL Creatinine 1.4 H (0.7-1.2) mg/dL POC Glucose 50 L 56 L (70-105) Calcium 8.0 L (8.4-10.2) mg/dL
--- NOTE | 2016-10-21 14:52 | Progress Note ---
Assessment and Plan - Patient Problems (1) Acute respiratory failure with hypercapnia Current Visit: Yes Status: Acute Plan to address problem: Continue with mechanical ventilatory support. VAP bundle Critical bundle addressed Agitation management Adjust ventilator settings for better gas-exchange VTYE/Stress ulcer prophylaxis SAT/SBT Glycemic control (2) DKA (diabetic ketoacidoses) Current Visit: Yes Status: Acute Qualifiers: Diabetes mellitus type: D Diabetes mellitus complication detail: D Plan to address problem: Continue with accucheck and glycemic control. Monitor closely (3) Altered mental status Current Visit: Yes Status: Acute Qualifiers: Altered mental status type: A Coma depth: C Coma timing: C (4) Acidosis Current Visit: Yes Status: Acute (5) Acute on chronic renal failure Current Visit: Yes Status: Acute (6) Sepsis Current Visit: Yes Status: Acute Qualifiers: Sepsis type: S Plan to address problem: Blood cultures, urine cultures Broaden antibiotic therapy while awaiting culture results especially with worsening acidosis. Remains hemodynamically stable (7) Cold foot Current Visit: Yes Status: Acute Qualifiers: Laterality: L Plan to address problem: As per vascular service. Continue heparin infusion (8) Diarrhea Current Visit: Yes Status: Acute Qualifiers: Diarrhea type: D Plan to address problem: Get stool for C.diff toxin. With the leukocytosis and diarrhea would recommend to empirically treat with Metronidazole- defer ID service (9) Acute hypernatremia Current Visit: Yes Status: Acute Plan to address problem: Free water flushes. Subjective Date of service: 10/21/16 Principal diagnosis: respiratory failure on mechanical ventilatory support, DKA Interval history: Patient seen and examined. Vitals, labs, medications, chart reviewed Ongoing high grade intermittent fevers Tracking voice and mouthing words. Objective Vital Signs - 12hr 10/21/16 10/21/16 10/21/16 03:01 03:30 03:54 Temperature Pulse Rate 111 H 116 H 113 H Pulse Rate [ Apical] Pulse Rate [ From Monitor] Respiratory 25 H 24 Rate Blood Pressure 168/77 175/67 175/67 O2 Sat by Pulse 100 100 100 Oximetry 10/21/16 10/21/16 10/21/16 04:00 04:30 05:00 Temperature 101.1 F H Pulse Rate 111 H 109 H 109 H Pulse Rate [ 110 H Apical] Pulse Rate [ 110 H From Monitor] Respiratory 21 17 23 Rate Blood Pressure 155/69 151/64 145/64 O2 Sat by Pulse 100 100 98 Oximetry 10/21/16 10/21/16 10/21/16 05:30 05:59 06:00 Temperature 102.1 F H Pulse Rate 109 H 109 H Pulse Rate [ Apical] Pulse Rate [ From Monitor] Respiratory 20 11 L Rate Blood Pressure 148/64 135/57 O2 Sat by Pulse 100 99 Oximetry 10/21/16 10/21/16 10/21/16 06:22 06:31 07:00 Temperature Pulse Rate 108 H 87 87 Pulse Rate [ Apical] Pulse Rate [ From Monitor] Respiratory 21 24 Rate Blood Pressure 152/67 118/53 122/56 O2 Sat by Pulse 99 98 Oximetry 10/21/16 10/21/16 10/21/16 07:13 07:30 07:39 Temperature 101.5 F H Pulse Rate 87 86 Pulse Rate [ 86 Apical] Pulse Rate [ 86 From Monitor] Respiratory 19 20 Rate Blood Pressure 122/56 123/54 O2 Sat by Pulse 99 99 99 Oximetry 10/21/16 10/21/16 10/21/16 08:00 08:30 09:00 Temperature Pulse Rate 89 92 H 95 H Pulse Rate [ Apical] Pulse Rate [ From Monitor] Respiratory 21 21 20 Rate Blood Pressure 132/56 133/57 131/61 O2 Sat by Pulse 98 98 98 Oximetry 10/21/16 10/21/16 10/21/16 09:30 10:00 10:30 Temperature Pulse Rate 91 H 96 H 94 H Pulse Rate [ Apical] Pulse Rate [ From Monitor] Respiratory 20 20 20 Rate Blood Pressure 130/61 135/61 138/63 O2 Sat by Pulse 98 98 98 Oximetry 10/21/16 10/21/16 10/21/16 11:00 11:30 11:58 Temperature Pulse Rate 98 H 102 H 106 H Pulse Rate [ Apical] Pulse Rate [ From Monitor] Respiratory 20 13 Rate Blood Pressure 142/67 154/74 154/74 O2 Sat by Pulse 100 100 Oximetry 10/21/16 10/21/16 10/21/16 12:00 12:30 12:52 Temperature 100.8 F H Pulse Rate 96 H 98 H 99 H Pulse Rate [ Apical] Pulse Rate [ From Monitor] Respiratory 16 12 Rate Blood Pressure 160/73 167/76 167/76 O2 Sat by Pulse 100 99 100 Oximetry 03/01/0210/21/16 10/21/16 13:00 13:30 14:00 Temperature Pulse Rate 101 H 97 H 93 H Pulse Rate [ Apical] Pulse Rate [ From Monitor] Respiratory 21 20 21 Rate Blood Pressure 155/67 152/64 137/58 O2 Sat by Pulse 100 100 98 Oximetry Constitutional: no acute distress, other (sedated) Eyes: non-icteric ENT: oropharynx moist Neck: supple, no lymphadenopathy Effort: normal, mildly labored Ascultation: Bilateral: diminished breath sounds, rales Cardiovascular: regular rate and rhythm Gastrointestinal: normoactive bowel sounds, soft, non-tender, non-distended Integumentary: normal (Right ischemic foot, cold up to mid calf) Extremities: no cyanosis, no edema, pulses normal (Cold right foot), no ischemia or petechiae Neurologic: unable to assess Psychiatric: other (sedated) CBC and BMP: 10/21/16 05:00 10/21/16 Unknown ABG, PT/INR, D-dimer: ABG POC ABG pH 7.382 (7.35-7.45) 10/19/16 03:59 POC ABG pCO2 32.2 (35-45) L 10/19/16 03:59 POC ABG pO2 128 (80-105) H 10/19/16 03:59 POC ABG HCO3 19.1 10/19/16 03:59 POC ABG Total CO2 20 10/19/16 03:59 POC ABG O2 Sat 99 10/19/16 03:59 PT/INR, D-dimer PT 16.4 Sec. (12.2-14.9) H 10/17/16 16:07 INR 1.33 (0.87-1.13) H 10/17/16 16:07 Abnormal lab findings: Abnormal Labs 10/13/16 10/13/16 10/13/16 06:38 06:38 07:23 WBC RBC Hgb Hct MCV RDW Plt Count Lymph % (Auto) Clark % (Auto) Clark # Seg Neutrophils % Seg Neuts % (Manual) Lymphocytes % (Manual) Monocytes % (Manual) Seg Neutrophils # Seg Neutrophils # Man Lymphocytes # (Manual) Monocytes # (Manual) Eosinophils # (Manual) PT INR APTT Heparin Anti-Xa Level POC ABG pH POC ABG pCO2 POC ABG pO2 Sodium Potassium 6.2 H* Chloride Carbon Dioxide 8 L* BUN 85 H Creatinine 2.8 H Glucose 602 H* POC Glucose 495 H Calcium 7.9 L Phosphorus 6.9 H D Magnesium 3.0 H AST C-Reactive Protein Total Protein Albumin Lipase Urine WBC (Auto) Urine Chloride Urine Total Protein 10/13/16 10/13/16 10/13/16 08:49 08:55 10:12 WBC RBC Hgb Hct MCV RDW Plt Count Lymph % (Auto) Clark % (Auto) Clark # Seg Neutrophils % Seg Neuts % (Manual) Lymphocytes % (Manual) Monocytes % (Manual) Seg Neutrophils # Seg Neutrophils # Man Lymphocytes # (Manual) Monocytes # (Manual) Eosinophils # (Manual) PT INR APTT Heparin Anti-Xa Level POC ABG pH POC ABG pCO2 POC ABG pO2 Sodium Potassium 5.6 H Chloride Carbon Dioxide 11 L BUN 77 H Creatinine 2.7 H Glucose 457 H POC Glucose > 500 H 424 H Calcium 8.0 L Phosphorus Magnesium AST C-Reactive Protein Total Protein Albumin Lipase Urine WBC (Auto) Urine Chloride Urine Total Protein 10/13/16 10/13/16 10/13/16 10:44 11:22 12:20 WBC RBC Hgb Hct MCV RDW Plt Count Lymph % (Auto) Clark % (Auto) Clark # Seg Neutrophils % Seg Neuts % (Manual) Lymphocytes % (Manual) Monocytes % (Manual) Seg Neutrophils # Seg Neutrophils # Man Lymphocytes # (Manual) Monocytes # (Manual) Eosinophils # (Manual) PT INR APTT Heparin Anti-Xa Level POC ABG pH POC ABG pCO2 POC ABG pO2 Sodium Potassium 5.4 H Chloride Carbon Dioxide 14 L BUN 72 H Creatinine 2.6 H Glucose 383 H POC Glucose 391 H 313 H Calcium 8.2 L Phosphorus Magnesium AST C-Reactive Protein Total Protein Albumin Lipase Urine WBC (Auto) Urine Chloride Urine Total Protein 10/13/16 10/13/16 10/13/16 13:32 14:44 15:57 WBC RBC Hgb Hct MCV RDW Plt Count Lymph % (Auto) Clark % (Auto) Clark # Seg Neutrophils % Seg Neuts % (Manual) Lymphocytes % (Manual) Monocytes % (Manual) Seg Neutrophils # Seg Neutrophils # Man Lymphocytes # (Manual) Monocytes # (Manual) Eosinophils # (Manual) PT INR APTT Heparin Anti-Xa Level POC ABG pH POC ABG pCO2 POC ABG pO2 Sodium Potassium Chloride Carbon Dioxide BUN Creatinine Glucose POC Glucose 296 H 210 H 190 H Calcium Phosphorus Magnesium AST C-Reactive Protein Total Protein Albumin Lipase Urine WBC (Auto) Urine Chloride Urine Total Protein 10/13/16 10/13/16 10/13/16 16:14 16:14 17:17 WBC RBC Hgb Hct MCV RDW Plt Count Lymph % (Auto) Clark % (Auto) Clark # Seg Neutrophils % Seg Neuts % (Manual) Lymphocytes % (Manual) Monocytes % (Manual) Seg Neutrophils # Seg Neutrophils # Man Lymphocytes # (Manual) Monocytes # (Manual) Eosinophils # (Manual) PT INR APTT Heparin Anti-Xa Level POC ABG pH POC ABG pCO2 POC ABG pO2 Sodium Potassium Chloride Carbon Dioxide 17 L BUN 58 H Creatinine 1.8 H Glucose 172 H POC Glucose 193 H Calcium 7.7 L Phosphorus Magnesium AST C-Reactive Protein 10.50 H Total Protein Albumin Lipase Urine WBC (Auto) Urine Chloride Urine Total Protein 10/13/16 10/13/16 10/13/16 17:55 18:32 19:41 WBC RBC Hgb Hct MCV RDW Plt Count Lymph % (Auto) Clark % (Auto) Clark # Seg Neutrophils % Seg Neuts % (Manual) Lymphocytes % (Manual) Monocytes % (Manual) Seg Neutrophils # Seg Neutrophils # Man Lymphocytes # (Manual) Monocytes # (Manual) Eosinophils # (Manual) PT INR APTT Heparin Anti-Xa Level POC ABG pH POC ABG pCO2 30.6 L POC ABG pO2 218 H Sodium Potassium Chloride Carbon Dioxide BUN Creatinine Glucose POC Glucose 192 H 177 H Calcium Phosphorus Magnesium AST C-Reactive Protein Total Protein Albumin Lipase Urine WBC (Auto) Urine Chloride Urine Total Protein 10/13/16 10/13/16 10/13/16 20:54 22:07 23:13 WBC RBC Hgb Hct MCV RDW Plt Count Lymph % (Auto) Clark % (Auto) Clark # Seg Neutrophils % Seg Neuts % (Manual) Lymphocytes % (Manual) Monocytes % (Manual) Seg Neutrophils # Seg Neutrophils # Man Lymphocytes # (Manual) Monocytes # (Manual) Eosinophils # (Manual) PT INR APTT Heparin Anti-Xa Level POC ABG pH POC ABG pCO2 POC ABG pO2 Sodium Potassium Chloride Carbon Dioxide BUN Creatinine Glucose POC Glucose 178 H 160 H 168 H Calcium Phosphorus Magnesium AST C-Reactive Protein Total Protein Albumin Lipase Urine WBC (Auto) Urine Chloride Urine Total Protein 10/13/16 10/13/16 10/14/16 23:25 Unknown 00:21 WBC RBC Hgb Hct MCV RDW Plt Count Lymph % (Auto) Clark % (Auto) Clark # Seg Neutrophils % Seg Neuts % (Manual) Lymphocytes % (Manual) Monocytes % (Manual) Seg Neutrophils # Seg Neutrophils # Man Lymphocytes # (Manual) Monocytes # (Manual) Eosinophils # (Manual) PT INR APTT Heparin Anti-Xa Level POC ABG pH POC ABG pCO2 POC ABG pO2 Sodium 148 H Potassium Chloride 114.6 H Carbon Dioxide 17 L BUN 56 H Creatinine 1.6 H Glucose 151 H POC Glucose 171 H Calcium 7.8 L Phosphorus Magnesium AST C-Reactive Protein Total Protein Albumin Lipase Urine WBC (Auto) Urine Chloride 10.0 L Urine Total Protein < 4 L 10/14/16 10/14/16 10/14/16 01:22 02:29 03:30 WBC RBC Hgb Hct MCV RDW Plt Count Lymph % (Auto) Clark % (Auto) Clark # Seg Neutrophils % Seg Neuts % (Manual) Lymphocytes % (Manual) Monocytes % (Manual) Seg Neutrophils # Seg Neutrophils # Man Lymphocytes # (Manual) Monocytes # (Manual) Eosinophils # (Manual) PT INR APTT Heparin Anti-Xa Level POC ABG pH POC ABG pCO2 POC ABG pO2 Sodium Potassium Chloride Carbon Dioxide BUN Creatinine Glucose POC Glucose 144 H 136 H 143 H Calcium Phosphorus Magnesium AST C-Reactive Protein Total Protein Albumin Lipase Urine WBC (Auto) Urine Chloride Urine Total Protein 10/14/16 10/14/16 10/14/16 04:28 05:16 05:44 WBC RBC Hgb Hct MCV RDW Plt Count Lymph % (Auto) Clark % (Auto) Clark # Seg Neutrophils % Seg Neuts % (Manual) Lymphocytes % (Manual) Monocytes % (Manual) Seg Neutrophils # Seg Neutrophils # Man Lymphocytes # (Manual) Monocytes # (Manual) Eosinophils # (Manual) PT INR APTT Heparin Anti-Xa Level POC ABG pH POC ABG pCO2 28.2 L POC ABG pO2 125 H Sodium Potassium Chloride Carbon Dioxide BUN Creatinine Glucose POC Glucose 133 H 160 H Calcium Phosphorus Magnesium AST C-Reactive Protein Total Protein Albumin Lipase Urine WBC (Auto) Urine Chloride Urine Total Protein 10/14/16 10/14/16 10/14/16 06:12 06:45 07:03 WBC RBC Hgb Hct MCV RDW Plt Count Lymph % (Auto) Clark % (Auto) Clark # Seg Neutrophils % Seg Neuts % (Manual) Lymphocytes % (Manual) Monocytes % (Manual) Seg Neutrophils # Seg Neutrophils # Man Lymphocytes # (Manual) Monocytes # (Manual) Eosinophils # (Manual) PT INR APTT Heparin Anti-Xa Level POC ABG pH POC ABG pCO2 POC ABG pO2 Sodium 149 H Potassium Chloride 115.4 H Carbon Dioxide 17 L BUN 45 H Creatinine 1.5 H Glucose 139 H POC Glucose 149 H Calcium 7.4 L Phosphorus 1.0 L D Magnesium AST C-Reactive Protein Total Protein Albumin Lipase Urine WBC (Auto) Urine Chloride Urine Total Protein 10/14/16 10/14/16 10/14/16 07:03 08:02 09:16 WBC RBC Hgb Hct MCV RDW Plt Count Lymph % (Auto) Clark % (Auto) Clark # Seg Neutrophils % Seg Neuts % (Manual) Lymphocytes % (Manual) Monocytes % (Manual) Seg Neutrophils # Seg Neutrophils # Man Lymphocytes # (Manual) Monocytes # (Manual) Eosinophils # (Manual) PT INR APTT Heparin Anti-Xa Level POC ABG pH POC ABG pCO2 POC ABG pO2 Sodium Potassium Chloride Carbon Dioxide BUN Creatinine Glucose POC Glucose 156 H 158 H Calcium Phosphorus Magnesium AST C-Reactive Protein Total Protein Albumin Lipase 738 H Urine WBC (Auto) Urine Chloride Urine Total Protein 10/14/16 10/14/16 10/14/16 10:26 11:03 11:57 WBC RBC Hgb Hct MCV RDW Plt Count Lymph % (Auto) Clark % (Auto) Clark # Seg Neutrophils % Seg Neuts % (Manual) Lymphocytes % (Manual) Monocytes % (Manual) Seg Neutrophils # Seg Neutrophils # Man Lymphocytes # (Manual) Monocytes # (Manual) Eosinophils # (Manual) PT INR APTT Heparin Anti-Xa Level POC ABG pH 7.198 L POC ABG pCO2 47.5 H POC ABG pO2 Sodium Potassium Chloride Carbon Dioxide BUN Creatinine Glucose POC Glucose 174 H 189 H Calcium Phosphorus Magnesium AST C-Reactive Protein Total Protein Albumin Lipase Urine WBC (Auto) Urine Chloride Urine Total Protein 10/14/16 10/14/16 10/14/16 12:02 12:02 13:11 WBC 13.4 H RBC 3.60 L Hgb Hct MCV 98 H D RDW 13.1 L Plt Count Lymph % (Auto) Clark % (Auto) Clark # Seg Neutrophils % Seg Neuts % (Manual) Lymphocytes % (Manual) Monocytes % (Manual) Seg Neutrophils # Seg Neutrophils # Man Lymphocytes # (Manual) Monocytes # (Manual) Eosinophils # (Manual) PT INR APTT Heparin Anti-Xa Level POC ABG pH POC ABG pCO2 POC ABG pO2 Sodium Potassium Chloride 110.7 H Carbon Dioxide 19 L BUN 38 H Creatinine 1.4 H Glucose 182 H POC Glucose 173 H Calcium 7.5 L Phosphorus Magnesium AST C-Reactive Protein Total Protein Albumin Lipase Urine WBC (Auto) Urine Chloride Urine Total Protein 10/14/16 10/14/16 10/14/16 14:24 15:31 16:36 WBC RBC Hgb Hct MCV RDW Plt Count Lymph % (Auto) Clark % (Auto) Clark # Seg Neutrophils % Seg Neuts % (Manual) Lymphocytes % (Manual) Monocytes % (Manual) Seg Neutrophils # Seg Neutrophils # Man Lymphocytes # (Manual) Monocytes # (Manual) Eosinophils # (Manual) PT INR APTT Heparin Anti-Xa Level POC ABG pH POC ABG pCO2 POC ABG pO2 Sodium Potassium Chloride Carbon Dioxide BUN Creatinine Glucose POC Glucose 123 H 124 H 156 H Calcium Phosphorus Magnesium AST C-Reactive Protein Total Protein Albumin Lipase Urine WBC (Auto) Urine Chloride Urine Total Protein 10/14/16 10/14/16 10/14/16 17:43 19:00 20:08 WBC RBC Hgb Hct MCV RDW Plt Count Lymph % (Auto) Clark % (Auto) Clark # Seg Neutrophils % Seg Neuts % (Manual) Lymphocytes % (Manual) Monocytes % (Manual) Seg Neutrophils # Seg Neutrophils # Man Lymphocytes # (Manual) Monocytes # (Manual) Eosinophils # (Manual) PT INR APTT Heparin Anti-Xa Level POC ABG pH POC ABG pCO2 POC ABG pO2 Sodium Potassium Chloride Carbon Dioxide BUN Creatinine Glucose POC Glucose 154 H 123 H 138 H Calcium Phosphorus Magnesium AST C-Reactive Protein Total Protein Albumin Lipase Urine WBC (Auto) Urine Chloride Urine Total Protein 10/14/16 10/14/16 10/14/16 21:17 22:25 23:37 WBC RBC Hgb Hct MCV RDW Plt Count Lymph % (Auto) Clark % (Auto) Clark # Seg Neutrophils % Seg Neuts % (Manual) Lymphocytes % (Manual) Monocytes % (Manual) Seg Neutrophils # Seg Neutrophils # Man Lymphocytes # (Manual) Monocytes # (Manual) Eosinophils # (Manual) PT INR APTT Heparin Anti-Xa Level POC ABG pH POC ABG pCO2 POC ABG pO2 Sodium Potassium Chloride Carbon Dioxide BUN Creatinine Glucose POC Glucose 148 H 132 H 137 H Calcium Phosphorus Magnesium AST C-Reactive Protein Total Protein Albumin Lipase Urine WBC (Auto) Urine Chloride Urine Total Protein 10/15/16 10/15/16 10/15/16 00:49 01:53 03:06 WBC RBC Hgb Hct MCV RDW Plt Count Lymph % (Auto) Clark % (Auto) Clark # Seg Neutrophils % Seg Neuts % (Manual) Lymphocytes % (Manual) Monocytes % (Manual) Seg Neutrophils # Seg Neutrophils # Man Lymphocytes # (Manual) Monocytes # (Manual) Eosinophils # (Manual) PT INR APTT Heparin Anti-Xa Level POC ABG pH POC ABG pCO2 POC ABG pO2 Sodium Potassium Chloride Carbon Dioxide BUN Creatinine Glucose POC Glucose 132 H 134 H 134 H Calcium Phosphorus Magnesium AST C-Reactive Protein Total Protein Albumin Lipase Urine WBC (Auto) Urine Chloride Urine Total Protein 10/15/16 10/15/16 10/15/16 04:40 04:46 06:21 WBC RBC Hgb Hct MCV RDW Plt Count Lymph % (Auto) Clark % (Auto) Clark # Seg Neutrophils % Seg Neuts % (Manual) Lymphocytes % (Manual) Monocytes % (Manual) Seg Neutrophils # Seg Neutrophils # Man Lymphocytes # (Manual) Monocytes # (Manual) Eosinophils # (Manual) PT INR APTT Heparin Anti-Xa Level POC ABG pH POC ABG pCO2 30.7 L POC ABG pO2 108 H Sodium Potassium Chloride 109.0 H Carbon Dioxide 17 L BUN 27 H Creatinine Glucose 124 H POC Glucose 160 H Calcium 7.5 L Phosphorus Magnesium AST 79 H C-Reactive Protein Total Protein 5.5 L Albumin 3.0 L Lipase Urine WBC (Auto) Urine Chloride Urine Total Protein 10/15/16 10/15/16 10/15/16 07:12 08:01 09:03 WBC RBC Hgb Hct MCV RDW Plt Count Lymph % (Auto) Clark % (Auto) Clark # Seg Neutrophils % Seg Neuts % (Manual) Lymphocytes % (Manual) Monocytes % (Manual) Seg Neutrophils # Seg Neutrophils # Man Lymphocytes # (Manual) Monocytes # (Manual) Eosinophils # (Manual) PT INR APTT Heparin Anti-Xa Level POC ABG pH POC ABG pCO2 POC ABG pO2 Sodium Potassium Chloride Carbon Dioxide BUN Creatinine Glucose POC Glucose 179 H 187 H 165 H Calcium Phosphorus Magnesium AST C-Reactive Protein Total Protein Albumin Lipase Urine WBC (Auto) Urine Chloride Urine Total Protein 10/15/16 10/15/16 10/15/16 10:06 10:06 10:07 WBC 12.1 H RBC 3.01 L Hgb 9.7 L Hct 29.6 L MCV 98 H RDW Plt Count 129 L Lymph % (Auto) Clark % (Auto) Clark # Seg Neutrophils % Seg Neuts % (Manual) Lymphocytes % (Manual) Monocytes % (Manual) Seg Neutrophils # Seg Neutrophils # Man Lymphocytes # (Manual) Monocytes # (Manual) Eosinophils # (Manual) PT INR APTT Heparin Anti-Xa Level POC ABG pH POC ABG pCO2 POC ABG pO2 Sodium Potassium 3.2 L D Chloride 109.6 H Carbon Dioxide 18 L BUN 22 H Creatinine Glucose 127 H POC Glucose 147 H Calcium 7.0 L Phosphorus Magnesium AST C-Reactive Protein Total Protein Albumin Lipase Urine WBC (Auto) Urine Chloride Urine Total Protein 10/15/16 10/15/16 10/15/16 11:05 11:06 11:57 WBC RBC Hgb Hct MCV RDW Plt Count Lymph % (Auto) Clark % (Auto) Clark # Seg Neutrophils % Seg Neuts % (Manual) Lymphocytes % (Manual) Monocytes % (Manual) Seg Neutrophils # Seg Neutrophils # Man Lymphocytes # (Manual) Monocytes # (Manual) Eosinophils # (Manual) PT INR APTT Heparin Anti-Xa Level POC ABG pH 7.305 L POC ABG pCO2 POC ABG pO2 Sodium Potassium Chloride Carbon Dioxide BUN Creatinine Glucose POC Glucose 145 H Calcium Phosphorus Magnesium AST C-Reactive Protein Total Protein Albumin Lipase Urine WBC (Auto) 7.0 H Urine Chloride Urine Total Protein 10/15/16 10/15/16 10/15/16 12:04 13:59 15:24 WBC RBC Hgb Hct MCV RDW Plt Count Lymph % (Auto) Clark % (Auto) Clark # Seg Neutrophils % Seg Neuts % (Manual) Lymphocytes % (Manual) Monocytes % (Manual) Seg Neutrophils # Seg Neutrophils # Man Lymphocytes # (Manual) Monocytes # (Manual) Eosinophils # (Manual) PT INR APTT Heparin Anti-Xa Level POC ABG pH POC ABG pCO2 POC ABG pO2 Sodium Potassium Chloride Carbon Dioxide BUN Creatinine Glucose POC Glucose 123 H 147 H 153 H Calcium Phosphorus Magnesium AST C-Reactive Protein Total Protein Albumin Lipase Urine WBC (Auto) Urine Chloride Urine Total Protein 10/15/16 10/15/16 10/15/16 16:30 17:34 18:30 WBC RBC Hgb Hct MCV RDW Plt Count Lymph % (Auto) Clark % (Auto) Clark # Seg Neutrophils % Seg Neuts % (Manual) Lymphocytes % (Manual) Monocytes % (Manual) Seg Neutrophils # Seg Neutrophils # Man Lymphocytes # (Manual) Monocytes # (Manual) Eosinophils # (Manual) PT INR APTT Heparin Anti-Xa Level POC ABG pH POC ABG pCO2 POC ABG pO2 Sodium Potassium Chloride Carbon Dioxide BUN Creatinine Glucose POC Glucose 223 H 236 H 164 H Calcium Phosphorus Magnesium AST C-Reactive Protein Total Protein Albumin Lipase Urine WBC (Auto) Urine Chloride Urine Total Protein 10/15/16 10/15/16 10/15/16 19:14 20:31 21:23 WBC RBC Hgb Hct MCV RDW Plt Count Lymph % (Auto) Clark % (Auto) Clark # Seg Neutrophils % Seg Neuts % (Manual) Lymphocytes % (Manual) Monocytes % (Manual) Seg Neutrophils # Seg Neutrophils # Man Lymphocytes # (Manual) Monocytes # (Manual) Eosinophils # (Manual) PT INR APTT Heparin Anti-Xa Level POC ABG pH POC ABG pCO2 POC ABG pO2 Sodium Potassium Chloride Carbon Dioxide BUN Creatinine Glucose POC Glucose 138 H 158 H 158 H Calcium Phosphorus Magnesium AST C-Reactive Protein Total Protein Albumin Lipase Urine WBC (Auto) Urine Chloride Urine Total Protein 10/15/16 10/15/16 10/16/16 22:04 22:57 00:11 WBC RBC Hgb Hct MCV RDW Plt Count Lymph % (Auto) Clark % (Auto) Clark # Seg Neutrophils % Seg Neuts % (Manual) Lymphocytes % (Manual) Monocytes % (Manual) Seg Neutrophils # Seg Neutrophils # Man Lymphocytes # (Manual) Monocytes # (Manual) Eosinophils # (Manual) PT INR APTT Heparin Anti-Xa Level POC ABG pH POC ABG pCO2 POC ABG pO2 Sodium Potassium Chloride Carbon Dioxide BUN Creatinine Glucose POC Glucose 168 H 213 H 166 H Calcium Phosphorus Magnesium AST C-Reactive Protein Total Protein Albumin Lipase Urine WBC (Auto) Urine Chloride Urine Total Protein 10/16/16 10/16/16 10/16/16 01:16 02:32 03:38 WBC RBC Hgb Hct MCV RDW Plt Count Lymph % (Auto) Clark % (Auto) Clark # Seg Neutrophils % Seg Neuts % (Manual) Lymphocytes % (Manual) Monocytes % (Manual) Seg Neutrophils # Seg Neutrophils # Man Lymphocytes # (Manual) Monocytes # (Manual) Eosinophils # (Manual) PT INR APTT Heparin Anti-Xa Level POC ABG pH POC ABG pCO2 POC ABG pO2 Sodium Potassium Chloride Carbon Dioxide BUN Creatinine Glucose POC Glucose 171 H 164 H 147 H Calcium Phosphorus Magnesium AST C-Reactive Protein Total Protein Albumin Lipase Urine WBC (Auto) Urine Chloride Urine Total Protein 10/16/16 10/16/16 10/16/16 04:14 04:14 04:49 WBC RBC Hgb Hct MCV RDW Plt Count Lymph % (Auto) Clark % (Auto) Clark # Seg Neutrophils % Seg Neuts % (Manual) Lymphocytes % (Manual) Monocytes % (Manual) Seg Neutrophils # Seg Neutrophils # Man Lymphocytes # (Manual) Monocytes # (Manual) Eosinophils # (Manual) PT INR APTT Heparin Anti-Xa Level POC ABG pH POC ABG pCO2 POC ABG pO2 Sodium 147 H Potassium Chloride 110.9 H Carbon Dioxide 19 L BUN Creatinine Glucose 139 H POC Glucose 144 H Calcium 7.3 L Phosphorus 2.3 L Magnesium AST C-Reactive Protein Total Protein Albumin Lipase 143 H Urine WBC (Auto) Urine Chloride Urine Total Protein 10/16/16 10/16/16 10/16/16 05:03 05:41 05:58 WBC 16.5 H RBC 3.36 L Hgb Hct MCV 98 H RDW 13.1 L Plt Count Lymph % (Auto) 8.5 L Clark % (Auto) 7.6 H Clark # 1.3 H Seg Neutrophils % 83.3 H Seg Neuts % (Manual) Lymphocytes % (Manual) Monocytes % (Manual) Seg Neutrophils # 13.8 H Seg Neutrophils # Man Lymphocytes # (Manual) Monocytes # (Manual) Eosinophils # (Manual) PT INR APTT Heparin Anti-Xa Level POC ABG pH POC ABG pCO2 30.7 L POC ABG pO2 128 H Sodium Potassium Chloride Carbon Dioxide BUN Creatinine Glucose POC Glucose 131 H Calcium Phosphorus Magnesium AST C-Reactive Protein Total Protein Albumin Lipase Urine WBC (Auto) Urine Chloride Urine Total Protein 10/16/16 10/16/16 10/16/16 06:32 09:27 09:35 WBC RBC Hgb Hct MCV RDW Plt Count Lymph % (Auto) Clark % (Auto) Clark # Seg Neutrophils % Seg Neuts % (Manual) Lymphocytes % (Manual) Monocytes % (Manual) Seg Neutrophils # Seg Neutrophils # Man Lymphocytes # (Manual) Monocytes # (Manual) Eosinophils # (Manual) PT INR APTT Heparin Anti-Xa Level POC ABG pH POC ABG pCO2 32.8 L POC ABG pO2 137 H Sodium Potassium Chloride Carbon Dioxide BUN Creatinine Glucose POC Glucose 121 H 150 H Calcium Phosphorus Magnesium AST C-Reactive Protein Total Protein Albumin Lipase Urine WBC (Auto) Urine Chloride Urine Total Protein 10/16/16 10/16/16 10/16/16 10:47 13:27 14:24 WBC RBC Hgb Hct MCV RDW Plt Count Lymph % (Auto) Clark % (Auto) Clark # Seg Neutrophils % Seg Neuts % (Manual) Lymphocytes % (Manual) Monocytes % (Manual) Seg Neutrophils # Seg Neutrophils # Man Lymphocytes # (Manual) Monocytes # (Manual) Eosinophils # (Manual) PT INR APTT Heparin Anti-Xa Level POC ABG pH POC ABG pCO2 POC ABG pO2 Sodium Potassium Chloride Carbon Dioxide BUN Creatinine Glucose POC Glucose 184 H 171 H 174 H Calcium Phosphorus Magnesium AST C-Reactive Protein Total Protein Albumin Lipase Urine WBC (Auto) Urine Chloride Urine Total Protein 10/16/16 10/16/16 10/16/16 15:48 16:26 18:17 WBC RBC Hgb Hct MCV RDW Plt Count Lymph % (Auto) Clark % (Auto) Clark # Seg Neutrophils % Seg Neuts % (Manual) Lymphocytes % (Manual) Monocytes % (Manual) Seg Neutrophils # Seg Neutrophils # Man Lymphocytes # (Manual) Monocytes # (Manual) Eosinophils # (Manual) PT INR APTT Heparin Anti-Xa Level POC ABG pH POC ABG pCO2 POC ABG pO2 Sodium Potassium Chloride Carbon Dioxide BUN Creatinine Glucose POC Glucose 205 H 204 H 234 H Calcium Phosphorus Magnesium AST C-Reactive Protein Total Protein Albumin Lipase Urine WBC (Auto) Urine Chloride Urine Total Protein 10/16/16 10/16/16 10/16/16 19:40 20:33 21:36 WBC RBC Hgb Hct MCV RDW Plt Count Lymph % (Auto) Clark % (Auto) Clark # Seg Neutrophils % Seg Neuts % (Manual) Lymphocytes % (Manual) Monocytes % (Manual) Seg Neutrophils # Seg Neutrophils # Man Lymphocytes # (Manual) Monocytes # (Manual) Eosinophils # (Manual) PT INR APTT Heparin Anti-Xa Level POC ABG pH POC ABG pCO2 POC ABG pO2 Sodium Potassium Chloride Carbon Dioxide BUN Creatinine Glucose POC Glucose 167 H 153 H 158 H Calcium Phosphorus Magnesium AST C-Reactive Protein Total Protein Albumin Lipase Urine WBC (Auto) Urine Chloride Urine Total Protein 10/16/16 10/16/16 10/17/16 22:54 23:48 00:47 WBC RBC Hgb Hct MCV RDW Plt Count Lymph % (Auto) Clark % (Auto) Clark # Seg Neutrophils % Seg Neuts % (Manual) Lymphocytes % (Manual) Monocytes % (Manual) Seg Neutrophils # Seg Neutrophils # Man Lymphocytes # (Manual) Monocytes # (Manual) Eosinophils # (Manual) PT INR APTT Heparin Anti-Xa Level POC ABG pH POC ABG pCO2 POC ABG pO2 Sodium Potassium Chloride Carbon Dioxide BUN Creatinine Glucose POC Glucose 180 H 207 H 196 H Calcium Phosphorus Magnesium AST C-Reactive Protein Total Protein Albumin Lipase Urine WBC (Auto) Urine Chloride Urine Total Protein 10/17/16 10/17/16 10/17/16 01:57 02:49 03:50 WBC RBC Hgb Hct MCV RDW Plt Count Lymph % (Auto) Clark % (Auto) Clark # Seg Neutrophils % Seg Neuts % (Manual) Lymphocytes % (Manual) Monocytes % (Manual) Seg Neutrophils # Seg Neutrophils # Man Lymphocytes # (Manual) Monocytes # (Manual) Eosinophils # (Manual) PT INR APTT Heparin Anti-Xa Level POC ABG pH POC ABG pCO2 POC ABG pO2 Sodium Potassium Chloride Carbon Dioxide BUN Creatinine Glucose POC Glucose 180 H 151 H 106 H Calcium Phosphorus Magnesium AST C-Reactive Protein Total Protein Albumin Lipase Urine WBC (Auto) Urine Chloride Urine Total Protein 10/17/16 10/17/16 10/17/16 04:59 06:03 06:35 WBC RBC Hgb Hct MCV RDW Plt Count Lymph % (Auto) Clark % (Auto) Clark # Seg Neutrophils % Seg Neuts % (Manual) Lymphocytes % (Manual) Monocytes % (Manual) Seg Neutrophils # Seg Neutrophils # Man Lymphocytes # (Manual) Monocytes # (Manual) Eosinophils # (Manual) PT INR APTT Heparin Anti-Xa Level POC ABG pH 7.453 H POC ABG pCO2 30.1 L POC ABG pO2 111 H Sodium Potassium Chloride Carbon Dioxide BUN Creatinine Glucose POC Glucose 145 H 157 H Calcium Phosphorus Magnesium AST C-Reactive Protein Total Protein Albumin Lipase Urine WBC (Auto) Urine Chloride Urine Total Protein 10/17/16 10/17/16 10/17/16 07:08 07:11 08:01 WBC RBC Hgb Hct MCV RDW Plt Count Lymph % (Auto) Clark % (Auto) Clark # Seg Neutrophils % Seg Neuts % (Manual) Lymphocytes % (Manual) Monocytes % (Manual) Seg Neutrophils # Seg Neutrophils # Man Lymphocytes # (Manual) Monocytes # (Manual) Eosinophils # (Manual) PT INR APTT Heparin Anti-Xa Level POC ABG pH POC ABG pCO2 POC ABG pO2 Sodium 147 H Potassium Chloride 113.8 H Carbon Dioxide 19 L BUN Creatinine Glucose 136 H POC Glucose 136 H 152 H Calcium 7.7 L Phosphorus Magnesium AST C-Reactive Protein Total Protein Albumin Lipase Urine WBC (Auto) Urine Chloride Urine Total Protein 10/17/16 10/17/16 10/17/16 08:23 09:17 09:53 WBC 18.1 H RBC 3.01 L Hgb 9.7 L Hct 29.4 L MCV 98 H RDW Plt Count 116 L Lymph % (Auto) Clark % (Auto) Clark # Seg Neutrophils % Seg Neuts % (Manual) 77.0 H Lymphocytes % (Manual) 4.0 L Monocytes % (Manual) 12.0 H Seg Neutrophils # Seg Neutrophils # Man 13.9 H Lymphocytes # (Manual) 0.7 L Monocytes # (Manual) 2.2 H Eosinophils # (Manual) PT INR APTT Heparin Anti-Xa Level POC ABG pH POC ABG pCO2 POC ABG pO2 Sodium Potassium Chloride Carbon Dioxide BUN Creatinine Glucose POC Glucose 148 H 137 H Calcium Phosphorus Magnesium AST C-Reactive Protein Total Protein Albumin Lipase Urine WBC (Auto) Urine Chloride Urine Total Protein 10/17/16 10/17/16 10/17/16 11:43 16:07 17:42 WBC RBC Hgb Hct MCV RDW Plt Count Lymph % (Auto) Clark % (Auto) Clark # Seg Neutrophils % Seg Neuts % (Manual) Lymphocytes % (Manual) Monocytes % (Manual) Seg Neutrophils # Seg Neutrophils # Man Lymphocytes # (Manual) Monocytes # (Manual) Eosinophils # (Manual) PT 16.4 H INR 1.33 H APTT 38.8 H Heparin Anti-Xa Level POC ABG pH POC ABG pCO2 POC ABG pO2 Sodium Potassium Chloride Carbon Dioxide BUN Creatinine Glucose POC Glucose 179 H 153 H Calcium Phosphorus Magnesium AST C-Reactive Protein Total Protein Albumin Lipase Urine WBC (Auto) Urine Chloride Urine Total Protein 10/17/16 10/18/16 10/18/16 22:54 04:37 05:39 WBC RBC Hgb Hct MCV RDW Plt Count Lymph % (Auto) Clark % (Auto) Clark # Seg Neutrophils % Seg Neuts % (Manual) Lymphocytes % (Manual) Monocytes % (Manual) Seg Neutrophils # Seg Neutrophils # Man Lymphocytes # (Manual) Monocytes # (Manual) Eosinophils # (Manual) PT INR APTT Heparin Anti-Xa Level 0.27 L POC ABG pH 7.454 H POC ABG pCO2 30.8 L POC ABG pO2 115 H Sodium Potassium Chloride Carbon Dioxide BUN Creatinine Glucose POC Glucose 69 L Calcium Phosphorus Magnesium AST C-Reactive Protein Total Protein Albumin Lipase Urine WBC (Auto) Urine Chloride Urine Total Protein 10/18/16 10/18/16 10/18/16 06:46 06:46 06:46 WBC 20.5 H RBC 2.62 L Hgb 8.4 L Hct 26.0 L MCV 100 H RDW Plt Count Lymph % (Auto) Clark % (Auto) Clark # Seg Neutrophils % Seg Neuts % (Manual) 75.0 H Lymphocytes % (Manual) 9.0 L Monocytes % (Manual) 14.0 H Seg Neutrophils # Seg Neutrophils # Man 15.4 H Lymphocytes # (Manual) Monocytes # (Manual) 2.9 H Eosinophils # (Manual) PT INR APTT Heparin Anti-Xa Level POC ABG pH POC ABG pCO2 POC ABG pO2 Sodium Potassium Chloride 110.6 H Carbon Dioxide BUN Creatinine 1.3 H Glucose 153 H POC Glucose Calcium 8.0 L Phosphorus Magnesium 1.6 L AST C-Reactive Protein Total Protein Albumin Lipase Urine WBC (Auto) Urine Chloride Urine Total Protein 10/18/16 10/18/16 10/18/16 07:30 11:37 17:51 WBC RBC Hgb Hct MCV RDW Plt Count Lymph % (Auto) Clark % (Auto) Clark # Seg Neutrophils % Seg Neuts % (Manual) Lymphocytes % (Manual) Monocytes % (Manual) Seg Neutrophils # Seg Neutrophils # Man Lymphocytes # (Manual) Monocytes # (Manual) Eosinophils # (Manual) PT INR APTT Heparin Anti-Xa Level POC ABG pH POC ABG pCO2 POC ABG pO2 Sodium Potassium Chloride Carbon Dioxide BUN Creatinine Glucose POC Glucose 162 H 156 H 164 H Calcium Phosphorus Magnesium AST C-Reactive Protein Total Protein Albumin Lipase Urine WBC (Auto) Urine Chloride Urine Total Protein 10/18/16 10/19/16 10/19/16 23:44 03:59 05:13 WBC 18.2 H RBC 2.76 L Hgb 9.0 L Hct 27.7 L MCV 100 H RDW Plt Count Lymph % (Auto) Clark % (Auto) Clark # Seg Neutrophils % Seg Neuts % (Manual) 76.0 H Lymphocytes % (Manual) 10.0 L Monocytes % (Manual) Seg Neutrophils # Seg Neutrophils # Man 13.8 H Lymphocytes # (Manual) Monocytes # (Manual) Eosinophils # (Manual) PT INR APTT Heparin Anti-Xa Level POC ABG pH POC ABG pCO2 32.2 L POC ABG pO2 128 H Sodium Potassium Chloride Carbon Dioxide BUN Creatinine Glucose POC Glucose 278 H Calcium Phosphorus Magnesium AST C-Reactive Protein Total Protein Albumin Lipase Urine WBC (Auto) Urine Chloride Urine Total Protein 10/19/16 10/19/16 10/19/16 06:01 06:30 12:20 WBC RBC Hgb Hct MCV RDW Plt Count Lymph % (Auto) Clark % (Auto) Clark # Seg Neutrophils % Seg Neuts % (Manual) Lymphocytes % (Manual) Monocytes % (Manual) Seg Neutrophils # Seg Neutrophils # Man Lymphocytes # (Manual) Monocytes # (Manual) Eosinophils # (Manual) PT INR APTT Heparin Anti-Xa Level POC ABG pH POC ABG pCO2 POC ABG pO2 Sodium Potassium Chloride Carbon Dioxide 18 L BUN Creatinine 1.3 H Glucose 262 H POC Glucose 261 H 349 H Calcium 7.7 L Phosphorus 4.8 H D Magnesium AST C-Reactive Protein Total Protein Albumin Lipase Urine WBC (Auto) Urine Chloride Urine Total Protein 10/19/16 10/20/16 10/20/16 16:48 00:17 05:20 WBC 22.5 H RBC 2.80 L Hgb 8.9 L Hct 28.3 L MCV 101 H RDW Plt Count Lymph % (Auto) Clark % (Auto) Clark # Seg Neutrophils % Seg Neuts % (Manual) Lymphocytes % (Manual) 10.0 L Monocytes % (Manual) Seg Neutrophils # Seg Neutrophils # Man 13.3 H Lymphocytes # (Manual) Monocytes # (Manual) 1.1 H Eosinophils # (Manual) 0.7 H PT INR APTT Heparin Anti-Xa Level POC ABG pH POC ABG pCO2 POC ABG pO2 Sodium Potassium Chloride Carbon Dioxide BUN Creatinine Glucose POC Glucose 248 H 346 H Calcium Phosphorus Magnesium AST C-Reactive Protein Total Protein Albumin Lipase Urine WBC (Auto) Urine Chloride Urine Total Protein 10/20/16 10/20/16 10/20/16 05:20 05:20 06:05 WBC RBC Hgb Hct MCV RDW Plt Count Lymph % (Auto) Clark % (Auto) Clark # Seg Neutrophils % Seg Neuts % (Manual) Lymphocytes % (Manual) Monocytes % (Manual) Seg Neutrophils # Seg Neutrophils # Man Lymphocytes # (Manual) Monocytes # (Manual) Eosinophils # (Manual) PT INR APTT Heparin Anti-Xa Level 0.20 L POC ABG pH POC ABG pCO2 POC ABG pO2 Sodium Potassium Chloride Carbon Dioxide BUN 20 H Creatinine Glucose 374 H POC Glucose 337 H Calcium 8.3 L Phosphorus Magnesium AST C-Reactive Protein Total Protein Albumin Lipase Urine WBC (Auto) Urine Chloride Urine Total Protein 10/20/16 10/20/16 10/20/16 11:49 13:59 17:56 WBC RBC Hgb Hct MCV RDW Plt Count Lymph % (Auto) Clark % (Auto) Clark # Seg Neutrophils % Seg Neuts % (Manual) Lymphocytes % (Manual) Monocytes % (Manual) Seg Neutrophils # Seg Neutrophils # Man Lymphocytes # (Manual) Monocytes # (Manual) Eosinophils # (Manual) PT INR APTT Heparin Anti-Xa Level 2.00 H POC ABG pH POC ABG pCO2 POC ABG pO2 Sodium Potassium Chloride Carbon Dioxide BUN Creatinine Glucose POC Glucose 305 H 362 H Calcium Phosphorus Magnesium AST C-Reactive Protein Total Protein Albumin Lipase Urine WBC (Auto) Urine Chloride Urine Total Protein 10/20/16 10/21/16 10/21/16 23:52 05:00 05:49 WBC 22.9 H RBC 2.49 L Hgb 7.7 L Hct 25.6 L MCV 103 H RDW Plt Count Lymph % (Auto) Clark % (Auto) Clark # Seg Neutrophils % Seg Neuts % (Manual) 94.0 H Lymphocytes % (Manual) 1.0 L Monocytes % (Manual) Seg Neutrophils # Seg Neutrophils # Man 21.5 H Lymphocytes # (Manual) 0.2 L Monocytes # (Manual) 1.1 H Eosinophils # (Manual) PT INR APTT Heparin Anti-Xa Level POC ABG pH POC ABG pCO2 POC ABG pO2 Sodium Potassium Chloride Carbon Dioxide BUN Creatinine Glucose POC Glucose 252 H 180 H Calcium Phosphorus Magnesium AST C-Reactive Protein Total Protein Albumin Lipase Urine WBC (Auto) Urine Chloride Urine Total Protein 10/21/16 10/21/16 10/21/16 11:47 11:49 Unknown WBC RBC Hgb Hct MCV RDW Plt Count Lymph % (Auto) Clark % (Auto) Clark # Seg Neutrophils % Seg Neuts % (Manual) Lymphocytes % (Manual) Monocytes % (Manual) Seg Neutrophils # Seg Neutrophils # Man Lymphocytes # (Manual) Monocytes # (Manual) Eosinophils # (Manual) PT INR APTT Heparin Anti-Xa Level POC ABG pH POC ABG pCO2 POC ABG pO2 Sodium 150 H Potassium 3.1 L Chloride 112.4 H Carbon Dioxide BUN 25 H Creatinine 1.4 H Glucose POC Glucose 50 L 56 L Calcium 8.0 L Phosphorus Magnesium AST C-Reactive Protein Total Protein Albumin Lipase Urine WBC (Auto) Urine Chloride Urine Total Protein Allied health notes reviewed: RT
[2016-10-21] MEDS: VERSED/NS 100MG/100ML 100 MG/100 ML BAG IV SCH (16:52)
--- NOTE | 2016-10-21 17:37 | Progress Note ---
Assessment and Plan Assessment and plan: 66-year-old woman who presented with lethargy and altered mental status she deteriorated and was intubated and in emergency room, she was managed for DKA and she also developed sepsis due to UTI and right lower extremity ischemia 1. Acute respiratory failure with hypercapnia Continue events 2. Diabetes DKA has now resolved, still having hyperglycemia will manage her insulins 3. Sepsis Suspected due to UTI, urine has only grown Paula, sputum cultures grew group B strep, continue broad-spectrum antibiotics, infectious disease input appreciated 4. 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 Vascular surgery input appreciated, too ill for any surgical intervention, continue heparin drip Given her multiple medical illnesses, her prognosis is quite poor Critical care time 32 minutes History Interval history: Patient has not improved, she has not been able to be weaned off the ventilator, Hospitalist Physical - Physical exam Narrative exam: General: Appears ill, intubated sedated HEENT: MMM, EOMI cardiac: S1-S2 heard lungs: Ventilated breath sounds abdomen: soft, nontender, nondistended bowel sounds positive extremities: Right lower extremity has no distal pulses, cold to touch Skin: no rash or lesion Neuro: Intubated sedated - Constitutional Vitals: Temp Pulse Resp BP Pulse Ox 99.1 F 94 H 20 154/73 100 10/21/16 16:00 10/21/16 17:00 10/21/16 17:00 10/21/16 17:00 10/21/16 17:00 General appearance: Present: other (intubated) Results - Labs CBC & Chem 7: 10/21/16 05:00 10/21/16 Unknown Labs: Laboratory Last Values WBC 22.9 K/mm3 (4.5-11.0) H 10/21/16 05:00 RBC 2.49 M/mm3 (3.65-5.03) L 10/21/16 05:00 Hgb 7.7 gm/dl (10.1-14.3) L 10/21/16 05:00 Hct 25.6 % (30.3-42.9) L 10/21/16 05:00 MCV 103 fl (79-97) H 10/21/16 05:00 MCH 31 pg (28-32) 10/21/16 05:00 MCHC 30 % (30-34) 10/21/16 05:00 RDW 13.8 % (13.2-15.2) 10/21/16 05:00 Plt Count 362 K/mm3 (140-440) 10/21/16 05:00 Lymph % (Auto) Alumni Secretary 10/21/16 05:00 Maury % (Auto) Alumni Secretary 10/21/16 05:00 Eos % (Auto) Alumni Secretary 10/21/16 05:00 Baso % (Auto) Alumni Secretary 10/21/16 05:00 Lymph # Alumni Secretary 10/21/16 05:00 Maury # Alumni Secretary 10/21/16 05:00 Eos # Alumni Secretary 10/21/16 05:00 Baso # Alumni Secretary 10/21/16 05:00 Add Manual Diff Complete 10/21/16 05:00 Total Counted 100 10/21/16 05:00 Seg Neutrophils % Alumni Secretary 10/21/16 05:00 Seg Neuts % (Manual) 94.0 % (40.0-70.0) H 10/21/16 05:00 Band Neutrophils % 0 % 10/21/16 05:00 Lymphocytes % (Manual) 1.0 % (13.4-35.0) L 10/21/16 05:00 Reactive Lymphs % (Man) 0 % 10/21/16 05:00 Monocytes % (Manual) 5.0 % (0.0-7.3) 10/21/16 05:00 Eosinophils % (Manual) 0 % (0.0-4.3) 10/21/16 05:00 Basophils % (Manual) 0 % (0.0-1.8) 10/21/16 05:00 Metamyelocytes % 0 % 10/21/16 05:00 Myelocytes % 0 % 10/21/16 05:00 Promyelocytes % 0 % 10/21/16 05:00 Blast Cells % 0 % 10/21/16 05:00 Nucleated RBC % Not Reportable 10/21/16 05:00 Seg Neutrophils # Alumni Secretary 10/21/16 05:00 Seg Neutrophils # Man 21.5 K/mm3 (1.8-7.7) H 10/21/16 05:00 Band Neutrophils # 0.0 K/mm3 10/21/16 05:00 Lymphocytes # (Manual) 0.2 K/mm3 (1.2-5.4) L 10/21/16 05:00 Abs React Lymphs (Man) 0.0 K/mm3 10/21/16 05:00 Monocytes # (Manual) 1.1 K/mm3 (0.0-0.8) H 10/21/16 05:00 Eosinophils # (Manual) 0.0 K/mm3 (0.0-0.4) 10/21/16 05:00 Basophils # (Manual) 0.0 K/mm3 (0.0-0.1) 10/21/16 05:00 Metamyelocytes # 0.0 K/mm3 10/21/16 05:00 Myelocytes # 0.0 K/mm3 10/21/16 05:00 Promyelocytes # 0.0 K/mm3 10/21/16 05:00 Blast Cells # 0.0 K/mm3 10/21/16 05:00 WBC Morphology Not Reportable 10/21/16 05:00 Hypersegmented Neuts Not Reportable 10/21/16 05:00 Hyposegmented Neuts Not Reportable 10/21/16 05:00 Hypogranular Neuts Not Reportable 10/21/16 05:00 Hypersegmented Polys TNR 10/17/16 07:08 Smudge Cells Not Reportable 10/21/16 05:00 Toxic Granulation Not Reportable 10/21/16 05:00 Toxic Vacuolation Not Reportable 10/21/16 05:00 Dohle Bodies Not Reportable 10/21/16 05:00 Pelger-Huet Anomaly Not Reportable 10/21/16 05:00 Alka Rods Not Reportable 10/21/16 05:00 Platelet Estimate Appears normal 10/21/16 05:00 Clumped Platelets Not Reportable 10/21/16 05:00 Plt Clumps, EDTA Not Reportable 10/21/16 05:00 Large Platelets Not Reportable 10/21/16 05:00 Giant Platelets Not Reportable 10/21/16 05:00 Platelet Satelliting Not Reportable 10/21/16 05:00 Plt Morphology Comment Not Reportable 10/21/16 05:00 RBC Morphology Not Reportable 10/21/16 05:00 Dimorphic RBCs Not Reportable 10/21/16 05:00 Polychromasia Not Reportable 10/21/16 05:00 Hypochromasia 1+ 10/21/16 05:00 Poikilocytosis Not Reportable 10/21/16 05:00 Basophilic Stippling TNR 10/17/16 07:08 Anisocytosis 1+ 10/21/16 05:00 Microcytosis Not Reportable 10/21/16 05:00 Macrocytosis Not Reportable 10/21/16 05:00 Spherocytes Not Reportable 10/21/16 05:00 Pappenheimer Bodies Not Reportable 10/21/16 05:00 Sickle Cells Not Reportable 10/21/16 05:00 Target Cells Not Reportable 10/21/16 05:00 Tear Drop Cells Not Reportable 10/21/16 05:00 Ovalocytes Not Reportable 10/21/16 05:00 Stomatocytes Few 10/20/16 05:20 Helmet Cells Not Reportable 10/21/16 05:00 [place] Bodies Not Reportable 10/21/16 05:00 Ramer Rings Not Reportable 10/21/16 05:00 Pike Cells Not Reportable 10/21/16 05:00 Bite Cells Not Reportable 10/21/16 05:00 Crenated Cell Not Reportable 10/21/16 05:00 Elliptocytes Not Reportable 10/21/16 05:00 Acanthocytes (Spur) Not Reportable 10/21/16 05:00 Rouleaux Not Reportable 10/21/16 05:00 Hemoglobin C Crystals Not Reportable 10/21/16 05:00 Schistocytes Not Reportable 10/21/16 05:00 Malaria parasites Not Reportable 10/21/16 05:00 David Bodies Not Reportable 10/21/16 05:00 Hem Pathologist Commnt No 10/21/16 05:00 PT 16.4 Sec. (12.2-14.9) H 10/17/16 16:07 INR 1.33 (0.87-1.13) H 10/17/16 16:07 APTT 38.8 Sec. (24.2-36.6) H 10/17/16 16:07 Heparin Anti-Xa Level 0.32 U.I./ml (0.3-0.7) 10/20/16 21:18 POC ABG pH 7.382 (7.35-7.45) 10/19/16 03:59 POC ABG pCO2 32.2 (35-45) L 10/19/16 03:59 POC ABG pO2 128 (80-105) H 10/19/16 03:59 POC ABG HCO3 19.1 10/19/16 03:59 POC ABG Total CO2 20 10/19/16 03:59 POC ABG O2 Sat 99 10/19/16 03:59 POC ABG Base Excess -6 10/19/16 03:59 VBG pH 7.020 (7.320-7.420) L* 10/13/16 04:22 FiO2 30 % 10/19/16 03:59 Sodium 150 mmol/L (137-145) H 10/21/16 Unknown Potassium 3.1 mmol/L (3.6-5.0) L 10/21/16 Unknown Chloride 112.4 mmol/L (98-107) H 10/21/16 Unknown Carbon Dioxide 24 mmol/L (22-30) 10/21/16 Unknown Anion Gap 17 mmol/L 10/21/16 Unknown BUN 25 mg/dL (7-17) H 10/21/16 Unknown Creatinine 1.4 mg/dL (0.7-1.2) H 10/21/16 Unknown Estimated GFR 46 ml/min 10/21/16 Unknown BUN/Creatinine Ratio 17.85 % 10/21/16 Unknown Glucose 97 mg/dL (65-100) 10/21/16 Unknown POC Glucose 140 (70-105) H 10/21/16 14:10 Osmolality 332 Mosm/kg 10/14/16 07:03 Lactic Acid 1.8 mmol/L (0.7-2.0) 10/14/16 07:03 Calcium 8.0 mg/dL (8.4-10.2) L 10/21/16 Unknown Phosphorus 2.7 mg/dL (2.5-4.5) D 10/21/16 Unknown Magnesium 1.9 mg/dL (1.7-2.3) 10/20/16 05:20 Total Bilirubin 0.5 mg/dL (0.1-1.2) 10/15/16 04:40 AST 79 units/L (5-40) H 10/15/16 04:40 ALT 27 units/L (7-56) 10/15/16 04:40 Alkaline Phosphatase 80 units/L (35-129) 10/15/16 04:40 Ammonia 35.0 umol/L (25-60) 10/13/16 05:40 Total Creatine Kinase 107 units/L (30-135) 10/13/16 04:22 CK-MB (CK-2) 3.1 ng/mL (0.0-4.0) 10/13/16 04:22 CK-MB (CK-2) Rel Index 2.8 (0-4) 10/13/16 04:22 Troponin T < 0.010 ng/mL (0.00-0.029) 10/14/16 18:55 C-Reactive Protein 10.50 mg/dL (0.00-1.30) H 10/13/16 16:14 Total Protein 5.5 g/dL (6.3-8.2) L 10/15/16 04:40 Albumin 3.0 g/dL (3.9-5) L 10/15/16 04:40 Albumin/Globulin Ratio 1.2 % 10/15/16 04:40 Lipase 143 units/L (13-60) H 10/16/16 04:14 Urine Color Yellow (Yellow) 10/15/16 11:05 Urine Turbidity Cloudy (Clear) 10/15/16 11:05 Urine pH 5.0 (5.0-7.0) 10/15/16 11:05 Ur Specific [place] 1.009 (1.003-1.030) 10/15/16 11:05 Urine Protein 30 mg/dl mg/dL (Negative) 10/15/16 11:05 Urine Glucose (UA) 150 mg/dL (Negative) 10/15/16 11:05 Urine Ketones Neg mg/dL (Negative) 10/15/16 11:05 Urine Blood Lg (Negative) 10/15/16 11:05 Urine Nitrite Neg (Negative) 10/15/16 11:05 Urine Bilirubin Neg (Negative) 10/15/16 11:05 Urine Urobilinogen < 2.0 mg/dL (<2.0) 10/15/16 11:05 Ur Leukocyte Esterase Neg (Negative) 10/15/16 11:05 Urine WBC (Auto) 7.0 /HPF (0.0-6.0) H 10/15/16 11:05 Urine RBC (Auto) 7.0 /HPF (0.0-6.0) 10/15/16 11:05 U Epithel Cells (Auto) 1.0 /HPF (0-13.0) 10/15/16 11:05 Urine Mucus Few /HPF 10/15/16 11:05 Urine Yeast (Budding) 2+ /HPF 10/15/16 11:05 Urine Osmolality 487 Mosm/kg 10/13/16 Unknown Urine Creatinine < 4.2 mg/dL (0.1-20.0) 10/13/16 Unknown Protein/Creatinin Ratio 0.00 10/13/16 Unknown Urine Sodium 10 mEq/L 10/13/16 Unknown Urine Potassium 1.00 mEq/L 10/13/16 Unknown Urine Chloride 10.0 mEq/L (110-250) L 10/13/16 Unknown Urine Total Protein < 4 mg/dL (5-11.8) L 10/13/16 Unknown Ketones 107.3 mg/dL (0.2-2.8) H 10/13/16 04:22
--- NOTE | 2016-10-21 18:04 | Progress Note ---
Subjective Date of service: 10/21/16 Principal diagnosis: respiratory failure on mechanical ventilatory support, DKA Interval history: Awake. no new issues. still has mild fever Vital signs - temp 99.1 CHEST - GOOD AIR ENTRY CVS - S1S2 ABD - BS_ LABS Reviewed. See lab section ASSESSMENT 1. Sepsis 2. dka 3. resp failure 4. htn RECOMMENDATION cbc/bmp in am continue current iv antibiotics. add fluconazole. Objective - Constitutional Vitals: Vital Signs Temp Pulse Resp BP Pulse Ox 99.1 F 94 H 20 154/73 100 10/21/16 16:00 10/21/16 17:00 10/21/16 17:00 10/21/16 17:00 10/21/16 17:00 Temperature -Last 24 Hours Temperature 99.1 F Temperature 100.8 F Temperature 101.5 F Temperature 102.1 F Temperature 101.1 F Temperature 98.9 F Temperature 98.9 F - Labs CBC & Chem 7: 10/21/16 05:00 10/21/16 Unknown Labs: Abnormal lab results 10/20/16 10/21/16 10/21/16 Range/Units 23:52 05:00 05:49 WBC 22.9 H (4.5-11.0) K/mm3 RBC 2.49 L (3.65-5.03) M/mm3 Hgb 7.7 L (10.1-14.3) gm/dl Hct 25.6 L (30.3-42.9) % MCV 103 H (79-97) fl Seg Neuts % (Manual) 94.0 H (40.0-70.0) % Lymphocytes % (Manual) 1.0 L (13.4-35.0) % Seg Neutrophils # Man 21.5 H (1.8-7.7) K/mm3 Lymphocytes # (Manual) 0.2 L (1.2-5.4) K/mm3 Monocytes # (Manual) 1.1 H (0.0-0.8) K/mm3 Sodium (137-145) mmol/L Potassium (3.6-5.0) mmol/L Chloride (98-107) mmol/L BUN (7-17) mg/dL Creatinine (0.7-1.2) mg/dL POC Glucose 252 H 180 H (70-105) Calcium (8.4-10.2) mg/dL 10/21/16 10/21/16 10/21/16 Range/Units 11:47 11:49 14:10 WBC (4.5-11.0) K/mm3 RBC (3.65-5.03) M/mm3 Hgb (10.1-14.3) gm/dl Hct (30.3-42.9) % MCV (79-97) fl Seg Neuts % (Manual) (40.0-70.0) % Lymphocytes % (Manual) (13.4-35.0) % Seg Neutrophils # Man (1.8-7.7) K/mm3 Lymphocytes # (Manual) (1.2-5.4) K/mm3 Monocytes # (Manual) (0.0-0.8) K/mm3 Sodium (137-145) mmol/L Potassium (3.6-5.0) mmol/L Chloride (98-107) mmol/L BUN (7-17) mg/dL Creatinine (0.7-1.2) mg/dL POC Glucose 50 L 56 L 140 H (70-105) Calcium (8.4-10.2) mg/dL 10/21/16 Range/Units Unknown WBC (4.5-11.0) K/mm3 RBC (3.65-5.03) M/mm3 Hgb (10.1-14.3) gm/dl Hct (30.3-42.9) % MCV (79-97) fl Seg Neuts % (Manual) (40.0-70.0) % Lymphocytes % (Manual) (13.4-35.0) % Seg Neutrophils # Man (1.8-7.7) K/mm3 Lymphocytes # (Manual) (1.2-5.4) K/mm3 Monocytes # (Manual) (0.0-0.8) K/mm3 Sodium 150 H (137-145) mmol/L Potassium 3.1 L (3.6-5.0) mmol/L Chloride 112.4 H (98-107) mmol/L BUN 25 H (7-17) mg/dL Creatinine 1.4 H (0.7-1.2) mg/dL POC Glucose (70-105) Calcium 8.0 L (8.4-10.2) mg/dL
[2016-10-22] MEDS: LOPRESSOR IV SCH ×6 (00:17→23:30)
[2016-10-22] MEDS: TYLENOL FEEDTUBE PRN ×3 (00:17→22:07)
[2016-10-22 05:13] LABS: Hematocrit 23.9 % (30.3-42.9); Hemoglobin 7.5 gm/dl (10.1-14.3); Mean Corpuscular HGB Conc 32 % (30-34); Mean Corpuscular Hemoglobin 32 pg (28-32); Mean Corpuscular Volume 101 fl (79-97); Platelet Count 360 K/mm3 (140-440); Red Blood Count 2.37 M/mm3 (3.65-5.03); Red Cell Distribution Width 13.6 % (13.2-15.2)
[2016-10-22 05:16] LABS: White Blood Count 20.8 K/mm3 (4.5-11.0)
[2016-10-22 05:29] LABS: Anion Gap 20 mmol/L; BUN/Creatinine Ratio 23.63; Blood Urea Nitrogen 26 mg/dL (7-17); Calcium 7.5 mg/dL (8.4-10.2); Carbon Dioxide 22 mmol/L (22-30); Chloride 109.4 mmol/L (98-107); Glucose 140 mg/dL (65-100); Sodium 148 mmol/L (137-145)
[2016-10-22 05:37] LABS: Potassium 2.9 mmol/L (3.6-5.0)
[2016-10-22] MEDS ORDERED: POTASSIUM CHLORIDE FEEDTUBE ONE ×2 (05:47→11:00)
[2016-10-22] MEDS: CLEOCIN 600 MG/50 mL 600 MG/50 ML BAG IV SCH ×2 (05:57→14:43)
[2016-10-22] MEDS: AZACTAM/NS 1 GM/50 ML 1 GM/50 ML VIAL IV SCH ×3 (05:58→22:10)
[2016-10-22] MEDS: HEPARIN/ 0.45% NACL-25,000 UNIT/500 ML 25,000 UNITS/500 ML BAG IV SCH (06:18)
[2016-10-22 06:28] LABS: Anisocytosis 1+; Blastocytes % (Manual) 0 %; Eosinophils % (Manual) 0 % (0.0-4.3); Hypochromasia 1+
[2016-10-22 06:29] LABS: Diff Status Complete; Smudge Cells Few; Stomatocytes Rare; Target Cells Few
--- NOTE | 2016-10-22 10:00 | Consultation ---
History of Present Illness Consult date: 10/22/16 Requesting physician: HERNESTO PYLE Reason for Consult: AMS Chief complaint: AMS/intubation limits History of present illness: 66 YO F admitted 10/13 w/ AMS in setting of Resp failure requiring intubation, DKA, Sepsis d/t UTI and SFA thrombosis.Sx have been constant but waxing and waning. There are no clear aggravating, relieving or temporal factors. Severity is such to limit extubation. AMS/intubation limits direct hx. Past History Past Medical History: diabetes, hypertension Past Surgical History: Other (left alina surgery for fracture repair and thyroid surgery per ) Social history: Family history: no significant family history Medications and Allergies Allergies Allergy/AdvReac Type Severity Reaction Status Date / Time Penicillins Allergy Rash Verified 08/27/13 08:32 Home Medications Medication Instructions Recorded Confirmed Last Taken Type Insulin Aspart [NovoLOG Flexpen] 45 units SQ QPM 10/13/16 10/13/16 Unknown History Insulin Aspart [NovoLOG Flexpen] 50 units SQ QAM 10/13/16 10/13/16 Unknown History Insulin Detemir [Levemir VIAL] 20 unit SQ QHS 10/13/16 10/13/16 Unknown History Losartan [Cozaar] 25 mg PO QDAY 10/13/16 10/13/16 Unknown History Metoprolol [Lopressor] 25 mg PO BID 10/13/16 10/13/16 Unknown History Pregabalin [Lyrica] 75 mg PO BID 10/13/16 10/13/16 Unknown History Quetiapine Fumarate [Seroquel] 100 mg PO QHS 10/13/16 10/13/16 Unknown History amLODIPine [Norvasc] 5 mg PO DAILY 10/13/16 10/13/16 Unknown History clonazePAM [Klonopin] 1 mg PO BID PRN 10/13/16 10/13/16 Unknown History Active Meds: Active Medications Acetaminophen (Tylenol) 650 mg FEEDTUBE Q6H PRN PRN Reason: Pain, Mild (1-3) Last Admin: 10/22/16 00:17 Dose: 650 mg Lipase/Protease/Amylase (Pancreaze Dr 10,500 Unit) 1 each FEEDTUBE PRN PRN PRN Reason: For Clogged Feeding Tube Dextrose (D50w (25gm)) 50 ml IV PRN PRN PRN Reason: Hypoglycemia Last Admin: 10/18/16 05:49 Dose: 50 ml Famotidine (Pepcid) 20 mg IV BID JULI Last Admin: 10/21/16 21:59 Dose: 20 mg Hydrophilic Ointment (Vaseline Lip Therapy) 1 applic TP Q2HR PRN PRN Reason: Dry Lips Midazolam HCl (Versed/Ns 100mg/100ml) 100 mg in 100 mls @ 1 mls/hr IV TITR JULI ; 1 MG/HR PRN Reason: Protocol Last Admin: 10/21/16 16:52 Dose: 1 mg/hr, 1 mls/hr Fentanyl Citrate (Fentanyl Drip Premix) 2,000 mcg in 100 mls @ 4.082 mls/hr IV TITR JULI; 1 MCG/KG/HR PRN Reason: Protocol Last Titration: 10/15/16 09:52 Dose: 0 mcg/kg/hr, 0 mls/hr Heparin Sodium/Sodium Chloride (Heparin/ 0.45% Nacl-25,000 Unit/500 Ml) 25,000 units in 500 mls @ 24 mls/hr IV TITR JULI; 1,200 UNITS/HR PRN Reason: Protocol Last Admin: 10/22/16 06:18 Dose: 1,400 units/hr, 28 mls/hr Aztreonam (Azactam/Ns 1 Gm/50 Ml) 1 gm in 50 mls @ 50 mls/hr IV Q8HR JULI Last Admin: 10/22/16 05:58 Dose: 50 mls/hr Vancomycin HCl 1,250 mg/ (Sodium Chloride) 250 mls @ 166.667 mls/hr IV Q24HR JULI Last Admin: 10/21/16 09:36 Dose: 166.667 mls/hr Clindamycin HCl (Cleocin 600 Mg/50 Ml) 600 mg in 50 mls @ 100 mls/hr IV Q8H JULI PRN Reason: Protocol Last Admin: 10/22/16 05:57 Dose: 100 mls/hr Fluconazole (Diflucan) 200 mg in 100 mls @ 100 mls/hr IV Q24HR JULI PRN Reason: Protocol Stop: 10/29/16 09:59 Insulin Human Regular (Novolin R) 0 units SUB-Q Q6HR JULI PRN Reason: Protocol Last Admin: 10/22/16 06:26 Dose: Not Given Metoprolol Tartrate (Lopressor) 5 mg IV Q6HR [facility] Last Admin: 10/22/16 05:56 Dose: 5 mg Multi-Ingred Cream/Lotion/Oil/Oint (Artificial Tears Ophth Oint) 1 applic OU Q4HR PRN PRN Reason: Dry Eye(s) Ondansetron HCl (Zofran) 4 mg IV Q8H PRN PRN Reason: N/V unrelieved by Reglan Quetiapine Fumarate (Seroquel) 50 mg PO BID [facility] Last Admin: 10/21/16 21:59 Dose: 50 mg Simple Syrup (Simple Syrup) 15 ml FEEDTUBE PRN PRN PRN Reason: Hypoglycemia Simple Syrup (Simple Syrup) 30 ml FEEDTUBE PRN PRN PRN Reason: Hypoglycemia Last Admin: 10/21/16 11:59 Dose: 30 ml Vancomycin HCl (Vancomycin Pharmacy To Dose) 1 each IV PKCONSULT [facility] Review of Systems ROS unobtainable: due to endotracheal tube, due to mental status Physical Examination - Vital Signs Vital Signs: Vital Signs Pulse Resp BP Pulse Ox 120 H 32 H 104/78 99 10/13/16 04:04 10/13/16 04:04 10/13/16 04:04 10/13/16 04:04 - Constitutional General appearance: acutely ill, chronically ill, older than stated age - EENT EENT: Present: ATNC, PERRL, mucous membranes dry, hearing intact, vision intact - Respiratory Respiratory: Present: chest non-tender, no respiratory distress, decreased breath sounds - Cardiovascular Cardiovascular: Present: regular rate Extremities: Present: no peripheral edema bilatateraly, no clubbing, cyanosis, no inflammation - Gastrointestinal Gastrointestinal: Present: soft, non-distended - Integumentary Integumentary: Present: normal - Neurologic Cranial nerve examination: PERRL, EOMI, VFF, V1/V2/V3 grossly intact, face symmetric, tongue midline, intact shoulder shrug, intact gag reflex, intact cough reflex, Intact Vestibulo-ocular r, intact corneal reflex Speech examination: other (intubation limits but follows midline and peripheral commands) Motor examination - right side: 5: biceps, triceps, wrist flexion, wrist extension, protective clothing issuer, hip flexors, knee extensors, dorsiflexion, toe extension (EHL) , plantarflexion Motor examination - left side: 3/5: biceps, triceps, wrist flexion, wrist extension, protective clothing issuer, hip flexors, knee extensors, dorsiflexion, toe extension (EHL) , plantarflexion Detailed sensory examination: intact, light touch, pain Reflexes: 0: ankle, 1+: bicep, knee, tricep - Musculoskeletal Musculoskeletal: Present: no fluid collection, no pain - Psychiatric Psychiatric: Present: mood/affect appropriate, cooperative Results - Laboratory Findings CBC and BMP: 10/22/16 04:20 10/22/16 04:20 Abnormal Lab Findings: Abnormal Labs 10/13/16 10/13/16 10/13/16 06:38 06:38 07:23 WBC RBC Hgb Hct MCV RDW Plt Count Lymph % (Auto) [place] % (Auto) [place] # Seg Neutrophils % Seg Neuts % (Manual) Lymphocytes % (Manual) Monocytes % (Manual) Seg Neutrophils # Seg Neutrophils # Man Lymphocytes # (Manual) Monocytes # (Manual) Eosinophils # (Manual) Basophils # (Manual) PT INR APTT Heparin Anti-Xa Level POC ABG pH POC ABG pCO2 POC ABG pO2 Sodium Potassium 6.2 H* Chloride Carbon Dioxide 8 L* BUN 85 H Creatinine 2.8 H Glucose 602 H* POC Glucose 495 H Calcium 7.9 L Phosphorus 6.9 H D Magnesium 3.0 H AST C-Reactive Protein Total Protein Albumin Lipase Urine WBC (Auto) Urine Chloride Urine Total Protein 10/13/16 10/13/16 10/13/16 08:49 08:55 10:12 WBC RBC Hgb Hct MCV RDW Plt Count Lymph % (Auto) [place] % (Auto) [place] # Seg Neutrophils % Seg Neuts % (Manual) Lymphocytes % (Manual) Monocytes % (Manual) Seg Neutrophils # Seg Neutrophils # Man Lymphocytes # (Manual) Monocytes # (Manual) Eosinophils # (Manual) Basophils # (Manual) PT INR APTT Heparin Anti-Xa Level POC ABG pH POC ABG pCO2 POC ABG pO2 Sodium Potassium 5.6 H Chloride Carbon Dioxide 11 L BUN 77 H Creatinine 2.7 H Glucose 457 H POC Glucose > 500 H 424 H Calcium 8.0 L Phosphorus Magnesium AST C-Reactive Protein Total Protein Albumin Lipase Urine WBC (Auto) Urine Chloride Urine Total Protein 10/13/16 10/13/16 10/13/16 10:44 11:22 12:20 WBC RBC Hgb Hct MCV RDW Plt Count Lymph % (Auto) [place] % (Auto) [place] # Seg Neutrophils % Seg Neuts % (Manual) Lymphocytes % (Manual) Monocytes % (Manual) Seg Neutrophils # Seg Neutrophils # Man Lymphocytes # (Manual) Monocytes # (Manual) Eosinophils # (Manual) Basophils # (Manual) PT INR APTT Heparin Anti-Xa Level POC ABG pH POC ABG pCO2 POC ABG pO2 Sodium Potassium 5.4 H Chloride Carbon Dioxide 14 L BUN 72 H Creatinine 2.6 H Glucose 383 H POC Glucose 391 H 313 H Calcium 8.2 L Phosphorus Magnesium AST C-Reactive Protein Total Protein Albumin Lipase Urine WBC (Auto) Urine Chloride Urine Total Protein 10/13/16 10/13/16 10/13/16 13:32 14:44 15:57 WBC RBC Hgb Hct MCV RDW Plt Count Lymph % (Auto) [place] % (Auto) [place] # Seg Neutrophils % Seg Neuts % (Manual) Lymphocytes % (Manual) Monocytes % (Manual) Seg Neutrophils # Seg Neutrophils # Man Lymphocytes # (Manual) Monocytes # (Manual) Eosinophils # (Manual) Basophils # (Manual) PT INR APTT Heparin Anti-Xa Level POC ABG pH POC ABG pCO2 POC ABG pO2 Sodium Potassium Chloride Carbon Dioxide BUN Creatinine Glucose POC Glucose 296 H 210 H 190 H Calcium Phosphorus Magnesium AST C-Reactive Protein Total Protein Albumin Lipase Urine WBC (Auto) Urine Chloride Urine Total Protein 10/13/16 10/13/16 10/13/16 16:14 16:14 17:17 WBC RBC Hgb Hct MCV RDW Plt Count Lymph % (Auto) [place] % (Auto) [place] # Seg Neutrophils % Seg Neuts % (Manual) Lymphocytes % (Manual) Monocytes % (Manual) Seg Neutrophils # Seg Neutrophils # Man Lymphocytes # (Manual) Monocytes # (Manual) Eosinophils # (Manual) Basophils # (Manual) PT INR APTT Heparin Anti-Xa Level POC ABG pH POC ABG pCO2 POC ABG pO2 Sodium Potassium Chloride Carbon Dioxide 17 L BUN 58 H Creatinine 1.8 H Glucose 172 H POC Glucose 193 H Calcium 7.7 L Phosphorus Magnesium AST C-Reactive Protein 10.50 H Total Protein Albumin Lipase Urine WBC (Auto) Urine Chloride Urine Total Protein 10/13/16 10/13/16 10/13/16 17:55 18:32 19:41 WBC RBC Hgb Hct MCV RDW Plt Count Lymph % (Auto) [place] % (Auto) [place] # Seg Neutrophils % Seg Neuts % (Manual) Lymphocytes % (Manual) Monocytes % (Manual) Seg Neutrophils # Seg Neutrophils # Man Lymphocytes # (Manual) Monocytes # (Manual) Eosinophils # (Manual) Basophils # (Manual) PT INR APTT Heparin Anti-Xa Level POC ABG pH POC ABG pCO2 30.6 L POC ABG pO2 218 H Sodium Potassium Chloride Carbon Dioxide BUN Creatinine Glucose POC Glucose 192 H 177 H Calcium Phosphorus Magnesium AST C-Reactive Protein Total Protein Albumin Lipase Urine WBC (Auto) Urine Chloride Urine Total Protein 10/13/16 10/13/16 10/13/16 20:54 22:07 23:13 WBC RBC Hgb Hct MCV RDW Plt Count Lymph % (Auto) [place] % (Auto) [place] # Seg Neutrophils % Seg Neuts % (Manual) Lymphocytes % (Manual) Monocytes % (Manual) Seg Neutrophils # Seg Neutrophils # Man Lymphocytes # (Manual) Monocytes # (Manual) Eosinophils # (Manual) Basophils # (Manual) PT INR APTT Heparin Anti-Xa Level POC ABG pH POC ABG pCO2 POC ABG pO2 Sodium Potassium Chloride Carbon Dioxide BUN Creatinine Glucose POC Glucose 178 H 160 H 168 H Calcium Phosphorus Magnesium AST C-Reactive Protein Total Protein Albumin Lipase Urine WBC (Auto) Urine Chloride Urine Total Protein 10/13/16 10/13/16 10/14/16 23:25 Unknown 00:21 WBC RBC Hgb Hct MCV RDW Plt Count Lymph % (Auto) [place] % (Auto) [place] # Seg Neutrophils % Seg Neuts % (Manual) Lymphocytes % (Manual) Monocytes % (Manual) Seg Neutrophils # Seg Neutrophils # Man Lymphocytes # (Manual) Monocytes # (Manual) Eosinophils # (Manual) Basophils # (Manual) PT INR APTT Heparin Anti-Xa Level POC ABG pH POC ABG pCO2 POC ABG pO2 Sodium 148 H Potassium Chloride 114.6 H Carbon Dioxide 17 L BUN 56 H Creatinine 1.6 H Glucose 151 H POC Glucose 171 H Calcium 7.8 L Phosphorus Magnesium AST C-Reactive Protein Total Protein Albumin Lipase Urine WBC (Auto) Urine Chloride 10.0 L Urine Total Protein < 4 L 10/14/16 10/14/16 10/14/16 01:22 02:29 03:30 WBC RBC Hgb Hct MCV RDW Plt Count Lymph % (Auto) [place] % (Auto) [place] # Seg Neutrophils % Seg Neuts % (Manual) Lymphocytes % (Manual) Monocytes % (Manual) Seg Neutrophils # Seg Neutrophils # Man Lymphocytes # (Manual) Monocytes # (Manual) Eosinophils # (Manual) Basophils # (Manual) PT INR APTT Heparin Anti-Xa Level POC ABG pH POC ABG pCO2 POC ABG pO2 Sodium Potassium Chloride Carbon Dioxide BUN Creatinine Glucose POC Glucose 144 H 136 H 143 H Calcium Phosphorus Magnesium AST C-Reactive Protein Total Protein Albumin Lipase Urine WBC (Auto) Urine Chloride Urine Total Protein 10/14/16 10/14/16 10/14/16 04:28 05:16 05:44 WBC RBC Hgb Hct MCV RDW Plt Count Lymph % (Auto) [place] % (Auto) [place] # Seg Neutrophils % Seg Neuts % (Manual) Lymphocytes % (Manual) Monocytes % (Manual) Seg Neutrophils # Seg Neutrophils # Man Lymphocytes # (Manual) Monocytes # (Manual) Eosinophils # (Manual) Basophils # (Manual) PT INR APTT Heparin Anti-Xa Level POC ABG pH POC ABG pCO2 28.2 L POC ABG pO2 125 H Sodium Potassium Chloride Carbon Dioxide BUN Creatinine Glucose POC Glucose 133 H 160 H Calcium Phosphorus Magnesium AST C-Reactive Protein Total Protein Albumin Lipase Urine WBC (Auto) Urine Chloride Urine Total Protein 10/14/16 10/14/16 10/14/16 06:12 06:45 07:03 WBC RBC Hgb Hct MCV RDW Plt Count Lymph % (Auto) [place] % (Auto) [place] # Seg Neutrophils % Seg Neuts % (Manual) Lymphocytes % (Manual) Monocytes % (Manual) Seg Neutrophils # Seg Neutrophils # Man Lymphocytes # (Manual) Monocytes # (Manual) Eosinophils # (Manual) Basophils # (Manual) PT INR APTT Heparin Anti-Xa Level POC ABG pH POC ABG pCO2 POC ABG pO2 Sodium 149 H Potassium Chloride 115.4 H Carbon Dioxide 17 L BUN 45 H Creatinine 1.5 H Glucose 139 H POC Glucose 149 H Calcium 7.4 L Phosphorus 1.0 L D Magnesium AST C-Reactive Protein Total Protein Albumin Lipase Urine WBC (Auto) Urine Chloride Urine Total Protein 10/14/16 10/14/16 10/14/16 07:03 08:02 09:16 WBC RBC Hgb Hct MCV RDW Plt Count Lymph % (Auto) [place] % (Auto) [place] # Seg Neutrophils % Seg Neuts % (Manual) Lymphocytes % (Manual) Monocytes % (Manual) Seg Neutrophils # Seg Neutrophils # Man Lymphocytes # (Manual) Monocytes # (Manual) Eosinophils # (Manual) Basophils # (Manual) PT INR APTT Heparin Anti-Xa Level POC ABG pH POC ABG pCO2 POC ABG pO2 Sodium Potassium Chloride Carbon Dioxide BUN Creatinine Glucose POC Glucose 156 H 158 H Calcium Phosphorus Magnesium AST C-Reactive Protein Total Protein Albumin Lipase 738 H Urine WBC (Auto) Urine Chloride Urine Total Protein 10/14/16 10/14/16 10/14/16 10:26 11:03 11:57 WBC RBC Hgb Hct MCV RDW Plt Count Lymph % (Auto) [place] % (Auto) [place] # Seg Neutrophils % Seg Neuts % (Manual) Lymphocytes % (Manual) Monocytes % (Manual) Seg Neutrophils # Seg Neutrophils # Man Lymphocytes # (Manual) Monocytes # (Manual) Eosinophils # (Manual) Basophils # (Manual) PT INR APTT Heparin Anti-Xa Level POC ABG pH 7.198 L POC ABG pCO2 47.5 H POC ABG pO2 Sodium Potassium Chloride Carbon Dioxide BUN Creatinine Glucose POC Glucose 174 H 189 H Calcium Phosphorus Magnesium AST C-Reactive Protein Total Protein Albumin Lipase Urine WBC (Auto) Urine Chloride Urine Total Protein 10/14/16 10/14/16 10/14/16 12:02 12:02 13:11 WBC 13.4 H RBC 3.60 L Hgb Hct MCV 98 H D RDW 13.1 L Plt Count Lymph % (Auto) [place] % (Auto) [place] # Seg Neutrophils % Seg Neuts % (Manual) Lymphocytes % (Manual) Monocytes % (Manual) Seg Neutrophils # Seg Neutrophils # Man Lymphocytes # (Manual) Monocytes # (Manual) Eosinophils # (Manual) Basophils # (Manual) PT INR APTT Heparin Anti-Xa Level POC ABG pH POC ABG pCO2 POC ABG pO2 Sodium Potassium Chloride 110.7 H Carbon Dioxide 19 L BUN 38 H Creatinine 1.4 H Glucose 182 H POC Glucose 173 H Calcium 7.5 L Phosphorus Magnesium AST C-Reactive Protein Total Protein Albumin Lipase Urine WBC (Auto) Urine Chloride Urine Total Protein 10/14/16 10/14/16 10/14/16 14:24 15:31 16:36 WBC RBC Hgb Hct MCV RDW Plt Count Lymph % (Auto) [place] % (Auto) [place] # Seg Neutrophils % Seg Neuts % (Manual) Lymphocytes % (Manual) Monocytes % (Manual) Seg Neutrophils # Seg Neutrophils # Man Lymphocytes # (Manual) Monocytes # (Manual) Eosinophils # (Manual) Basophils # (Manual) PT INR APTT Heparin Anti-Xa Level POC ABG pH POC ABG pCO2 POC ABG pO2 Sodium Potassium Chloride Carbon Dioxide BUN Creatinine Glucose POC Glucose 123 H 124 H 156 H Calcium Phosphorus Magnesium AST C-Reactive Protein Total Protein Albumin Lipase Urine WBC (Auto) Urine Chloride Urine Total Protein 10/14/16 10/14/16 10/14/16 17:43 19:00 20:08 WBC RBC Hgb Hct MCV RDW Plt Count Lymph % (Auto) [place] % (Auto) [place] # Seg Neutrophils % Seg Neuts % (Manual) Lymphocytes % (Manual) Monocytes % (Manual) Seg Neutrophils # Seg Neutrophils # Man Lymphocytes # (Manual) Monocytes # (Manual) Eosinophils # (Manual) Basophils # (Manual) PT INR APTT Heparin Anti-Xa Level POC ABG pH POC ABG pCO2 POC ABG pO2 Sodium Potassium Chloride Carbon Dioxide BUN Creatinine Glucose POC Glucose 154 H 123 H 138 H Calcium Phosphorus Magnesium AST C-Reactive Protein Total Protein Albumin Lipase Urine WBC (Auto) Urine Chloride Urine Total Protein 10/14/16 10/14/16 10/14/16 21:17 22:25 23:37 WBC RBC Hgb Hct MCV RDW Plt Count Lymph % (Auto) [place] % (Auto) [place] # Seg Neutrophils % Seg Neuts % (Manual) Lymphocytes % (Manual) Monocytes % (Manual) Seg Neutrophils # Seg Neutrophils # Man Lymphocytes # (Manual) Monocytes # (Manual) Eosinophils # (Manual) Basophils # (Manual) PT INR APTT Heparin Anti-Xa Level POC ABG pH POC ABG pCO2 POC ABG pO2 Sodium Potassium Chloride Carbon Dioxide BUN Creatinine Glucose POC Glucose 148 H 132 H 137 H Calcium Phosphorus Magnesium AST C-Reactive Protein Total Protein Albumin Lipase Urine WBC (Auto) Urine Chloride Urine Total Protein 10/15/16 10/15/16 10/15/16 00:49 01:53 03:06 WBC RBC Hgb Hct MCV RDW Plt Count Lymph % (Auto) [place] % (Auto) [place] # Seg Neutrophils % Seg Neuts % (Manual) Lymphocytes % (Manual) Monocytes % (Manual) Seg Neutrophils # Seg Neutrophils # Man Lymphocytes # (Manual) Monocytes # (Manual) Eosinophils # (Manual) Basophils # (Manual) PT INR APTT Heparin Anti-Xa Level POC ABG pH POC ABG pCO2 POC ABG pO2 Sodium Potassium Chloride Carbon Dioxide BUN Creatinine Glucose POC Glucose 132 H 134 H 134 H Calcium Phosphorus Magnesium AST C-Reactive Protein Total Protein Albumin Lipase Urine WBC (Auto) Urine Chloride Urine Total Protein 10/15/16 10/15/16 10/15/16 04:40 04:46 06:21 WBC RBC Hgb Hct MCV RDW Plt Count Lymph % (Auto) [place] % (Auto) [place] # Seg Neutrophils % Seg Neuts % (Manual) Lymphocytes % (Manual) Monocytes % (Manual) Seg Neutrophils # Seg Neutrophils # Man Lymphocytes # (Manual) Monocytes # (Manual) Eosinophils # (Manual) Basophils # (Manual) PT INR APTT Heparin Anti-Xa Level POC ABG pH POC ABG pCO2 30.7 L POC ABG pO2 108 H Sodium Potassium Chloride 109.0 H Carbon Dioxide 17 L BUN 27 H Creatinine Glucose 124 H POC Glucose 160 H Calcium 7.5 L Phosphorus Magnesium AST 79 H C-Reactive Protein Total Protein 5.5 L Albumin 3.0 L Lipase Urine WBC (Auto) Urine Chloride Urine Total Protein 10/15/16 10/15/16 10/15/16 07:12 08:01 09:03 WBC RBC Hgb Hct MCV RDW Plt Count Lymph % (Auto) [place] % (Auto) [place] # Seg Neutrophils % Seg Neuts % (Manual) Lymphocytes % (Manual) Monocytes % (Manual) Seg Neutrophils # Seg Neutrophils # Man Lymphocytes # (Manual) Monocytes # (Manual) Eosinophils # (Manual) Basophils # (Manual) PT INR APTT Heparin Anti-Xa Level POC ABG pH POC ABG pCO2 POC ABG pO2 Sodium Potassium Chloride Carbon Dioxide BUN Creatinine Glucose POC Glucose 179 H 187 H 165 H Calcium Phosphorus Magnesium AST C-Reactive Protein Total Protein Albumin Lipase Urine WBC (Auto) Urine Chloride Urine Total Protein 10/15/16 10/15/16 10/15/16 10:06 10:06 10:07 WBC 12.1 H RBC 3.01 L Hgb 9.7 L Hct 29.6 L MCV 98 H RDW Plt Count 129 L Lymph % (Auto) [place] % (Auto) [place] # Seg Neutrophils % Seg Neuts % (Manual) Lymphocytes % (Manual) Monocytes % (Manual) Seg Neutrophils # Seg Neutrophils # Man Lymphocytes # (Manual) Monocytes # (Manual) Eosinophils # (Manual) Basophils # (Manual) PT INR APTT Heparin Anti-Xa Level POC ABG pH POC ABG pCO2 POC ABG pO2 Sodium Potassium 3.2 L D Chloride 109.6 H Carbon Dioxide 18 L BUN 22 H Creatinine Glucose 127 H POC Glucose 147 H Calcium 7.0 L Phosphorus Magnesium AST C-Reactive Protein Total Protein Albumin Lipase Urine WBC (Auto) Urine Chloride Urine Total Protein 10/15/16 10/15/16 10/15/16 11:05 11:06 11:57 WBC RBC Hgb Hct MCV RDW Plt Count Lymph % (Auto) [place] % (Auto) [place] # Seg Neutrophils % Seg Neuts % (Manual) Lymphocytes % (Manual) Monocytes % (Manual) Seg Neutrophils # Seg Neutrophils # Man Lymphocytes # (Manual) Monocytes # (Manual) Eosinophils # (Manual) Basophils # (Manual) PT INR APTT Heparin Anti-Xa Level POC ABG pH 7.305 L POC ABG pCO2 POC ABG pO2 Sodium Potassium Chloride Carbon Dioxide BUN Creatinine Glucose POC Glucose 145 H Calcium Phosphorus Magnesium AST C-Reactive Protein Total Protein Albumin Lipase Urine WBC (Auto) 7.0 H Urine Chloride Urine Total Protein 10/15/16 10/15/16 10/15/16 12:04 13:59 15:24 WBC RBC Hgb Hct MCV RDW Plt Count Lymph % (Auto) [place] % (Auto) [place] # Seg Neutrophils % Seg Neuts % (Manual) Lymphocytes % (Manual) Monocytes % (Manual) Seg Neutrophils # Seg Neutrophils # Man Lymphocytes # (Manual) Monocytes # (Manual) Eosinophils # (Manual) Basophils # (Manual) PT INR APTT Heparin Anti-Xa Level POC ABG pH POC ABG pCO2 POC ABG pO2 Sodium Potassium Chloride Carbon Dioxide BUN Creatinine Glucose POC Glucose 123 H 147 H 153 H Calcium Phosphorus Magnesium AST C-Reactive Protein Total Protein Albumin Lipase Urine WBC (Auto) Urine Chloride Urine Total Protein 10/15/16 10/15/16 10/15/16 16:30 17:34 18:30 WBC RBC Hgb Hct MCV RDW Plt Count Lymph % (Auto) [place] % (Auto) [place] # Seg Neutrophils % Seg Neuts % (Manual) Lymphocytes % (Manual) Monocytes % (Manual) Seg Neutrophils # Seg Neutrophils # Man Lymphocytes # (Manual) Monocytes # (Manual) Eosinophils # (Manual) Basophils # (Manual) PT INR APTT Heparin Anti-Xa Level POC ABG pH POC ABG pCO2 POC ABG pO2 Sodium Potassium Chloride Carbon Dioxide BUN Creatinine Glucose POC Glucose 223 H 236 H 164 H Calcium Phosphorus Magnesium AST C-Reactive Protein Total Protein Albumin Lipase Urine WBC (Auto) Urine Chloride Urine Total Protein 10/15/16 10/15/16 10/15/16 19:14 20:31 21:23 WBC RBC Hgb Hct MCV RDW Plt Count Lymph % (Auto) [place] % (Auto) [place] # Seg Neutrophils % Seg Neuts % (Manual) Lymphocytes % (Manual) Monocytes % (Manual) Seg Neutrophils # Seg Neutrophils # Man Lymphocytes # (Manual) Monocytes # (Manual) Eosinophils # (Manual) Basophils # (Manual) PT INR APTT Heparin Anti-Xa Level POC ABG pH POC ABG pCO2 POC ABG pO2 Sodium Potassium Chloride Carbon Dioxide BUN Creatinine Glucose POC Glucose 138 H 158 H 158 H Calcium Phosphorus Magnesium AST C-Reactive Protein Total Protein Albumin Lipase Urine WBC (Auto) Urine Chloride Urine Total Protein 10/15/16 10/15/16 10/16/16 22:04 22:57 00:11 WBC RBC Hgb Hct MCV RDW Plt Count Lymph % (Auto) [place] % (Auto) [place] # Seg Neutrophils % Seg Neuts % (Manual) Lymphocytes % (Manual) Monocytes % (Manual) Seg Neutrophils # Seg Neutrophils # Man Lymphocytes # (Manual) Monocytes # (Manual) Eosinophils # (Manual) Basophils # (Manual) PT INR APTT Heparin Anti-Xa Level POC ABG pH POC ABG pCO2 POC ABG pO2 Sodium Potassium Chloride Carbon Dioxide BUN Creatinine Glucose POC Glucose 168 H 213 H 166 H Calcium Phosphorus Magnesium AST C-Reactive Protein Total Protein Albumin Lipase Urine WBC (Auto) Urine Chloride Urine Total Protein 10/16/16 10/16/16 10/16/16 01:16 02:32 03:38 WBC RBC Hgb Hct MCV RDW Plt Count Lymph % (Auto) [place] % (Auto) [place] # Seg Neutrophils % Seg Neuts % (Manual) Lymphocytes % (Manual) Monocytes % (Manual) Seg Neutrophils # Seg Neutrophils # Man Lymphocytes # (Manual) Monocytes # (Manual) Eosinophils # (Manual) Basophils # (Manual) PT INR APTT Heparin Anti-Xa Level POC ABG pH POC ABG pCO2 POC ABG pO2 Sodium Potassium Chloride Carbon Dioxide BUN Creatinine Glucose POC Glucose 171 H 164 H 147 H Calcium Phosphorus Magnesium AST C-Reactive Protein Total Protein Albumin Lipase Urine WBC (Auto) Urine Chloride Urine Total Protein 10/16/16 10/16/16 10/16/16 04:14 04:14 04:49 WBC RBC Hgb Hct MCV RDW Plt Count Lymph % (Auto) [place] % (Auto) [place] # Seg Neutrophils % Seg Neuts % (Manual) Lymphocytes % (Manual) Monocytes % (Manual) Seg Neutrophils # Seg Neutrophils # Man Lymphocytes # (Manual) Monocytes # (Manual) Eosinophils # (Manual) Basophils # (Manual) PT INR APTT Heparin Anti-Xa Level POC ABG pH POC ABG pCO2 POC ABG pO2 Sodium 147 H Potassium Chloride 110.9 H Carbon Dioxide 19 L BUN Creatinine Glucose 139 H POC Glucose 144 H Calcium 7.3 L Phosphorus 2.3 L Magnesium AST C-Reactive Protein Total Protein Albumin Lipase 143 H Urine WBC (Auto) Urine Chloride Urine Total Protein 10/16/16 10/16/16 10/16/16 05:03 05:41 05:58 WBC 16.5 H RBC 3.36 L Hgb Hct MCV 98 H RDW 13.1 L Plt Count Lymph % (Auto) 8.5 L Sterling % (Auto) 7.6 H Sterling # 1.3 H Seg Neutrophils % 83.3 H Seg Neuts % (Manual) Lymphocytes % (Manual) Monocytes % (Manual) Seg Neutrophils # 13.8 H Seg Neutrophils # Man Lymphocytes # (Manual) Monocytes # (Manual) Eosinophils # (Manual) Basophils # (Manual) PT INR APTT Heparin Anti-Xa Level POC ABG pH POC ABG pCO2 30.7 L POC ABG pO2 128 H Sodium Potassium Chloride Carbon Dioxide BUN Creatinine Glucose POC Glucose 131 H Calcium Phosphorus Magnesium AST C-Reactive Protein Total Protein Albumin Lipase Urine WBC (Auto) Urine Chloride Urine Total Protein 10/16/16 10/16/16 10/16/16 06:32 09:27 09:35 WBC RBC Hgb Hct MCV RDW Plt Count Lymph % (Auto) Sterling % (Auto) Sterling # Seg Neutrophils % Seg Neuts % (Manual) Lymphocytes % (Manual) Monocytes % (Manual) Seg Neutrophils # Seg Neutrophils # Man Lymphocytes # (Manual) Monocytes # (Manual) Eosinophils # (Manual) Basophils # (Manual) PT INR APTT Heparin Anti-Xa Level POC ABG pH POC ABG pCO2 32.8 L POC ABG pO2 137 H Sodium Potassium Chloride Carbon Dioxide BUN Creatinine Glucose POC Glucose 121 H 150 H Calcium Phosphorus Magnesium AST C-Reactive Protein Total Protein Albumin Lipase Urine WBC (Auto) Urine Chloride Urine Total Protein 10/16/16 10/16/16 10/16/16 10:47 13:27 14:24 WBC RBC Hgb Hct MCV RDW Plt Count Lymph % (Auto) Sterling % (Auto) Sterling # Seg Neutrophils % Seg Neuts % (Manual) Lymphocytes % (Manual) Monocytes % (Manual) Seg Neutrophils # Seg Neutrophils # Man Lymphocytes # (Manual) Monocytes # (Manual) Eosinophils # (Manual) Basophils # (Manual) PT INR APTT Heparin Anti-Xa Level POC ABG pH POC ABG pCO2 POC ABG pO2 Sodium Potassium Chloride Carbon Dioxide BUN Creatinine Glucose POC Glucose 184 H 171 H 174 H Calcium Phosphorus Magnesium AST C-Reactive Protein Total Protein Albumin Lipase Urine WBC (Auto) Urine Chloride Urine Total Protein 10/16/16 10/16/16 10/16/16 15:48 16:26 18:17 WBC RBC Hgb Hct MCV RDW Plt Count Lymph % (Auto) Sterling % (Auto) Sterling # Seg Neutrophils % Seg Neuts % (Manual) Lymphocytes % (Manual) Monocytes % (Manual) Seg Neutrophils # Seg Neutrophils # Man Lymphocytes # (Manual) Monocytes # (Manual) Eosinophils # (Manual) Basophils # (Manual) PT INR APTT Heparin Anti-Xa Level POC ABG pH POC ABG pCO2 POC ABG pO2 Sodium Potassium Chloride Carbon Dioxide BUN Creatinine Glucose POC Glucose 205 H 204 H 234 H Calcium Phosphorus Magnesium AST C-Reactive Protein Total Protein Albumin Lipase Urine WBC (Auto) Urine Chloride Urine Total Protein 10/16/16 10/16/16 10/16/16 19:40 20:33 21:36 WBC RBC Hgb Hct MCV RDW Plt Count Lymph % (Auto) Sterling % (Auto) Sterling # Seg Neutrophils % Seg Neuts % (Manual) Lymphocytes % (Manual) Monocytes % (Manual) Seg Neutrophils # Seg Neutrophils # Man Lymphocytes # (Manual) Monocytes # (Manual) Eosinophils # (Manual) Basophils # (Manual) PT INR APTT Heparin Anti-Xa Level POC ABG pH POC ABG pCO2 POC ABG pO2 Sodium Potassium Chloride Carbon Dioxide BUN Creatinine Glucose POC Glucose 167 H 153 H 158 H Calcium Phosphorus Magnesium AST C-Reactive Protein Total Protein Albumin Lipase Urine WBC (Auto) Urine Chloride Urine Total Protein 10/16/16 10/16/16 10/17/16 22:54 23:48 00:47 WBC RBC Hgb Hct MCV RDW Plt Count Lymph % (Auto) Sterling % (Auto) Sterling # Seg Neutrophils % Seg Neuts % (Manual) Lymphocytes % (Manual) Monocytes % (Manual) Seg Neutrophils # Seg Neutrophils # Man Lymphocytes # (Manual) Monocytes # (Manual) Eosinophils # (Manual) Basophils # (Manual) PT INR APTT Heparin Anti-Xa Level POC ABG pH POC ABG pCO2 POC ABG pO2 Sodium Potassium Chloride Carbon Dioxide BUN Creatinine Glucose POC Glucose 180 H 207 H 196 H Calcium Phosphorus Magnesium AST C-Reactive Protein Total Protein Albumin Lipase Urine WBC (Auto) Urine Chloride Urine Total Protein 10/17/16 10/17/16 10/17/16 01:57 02:49 03:50 WBC RBC Hgb Hct MCV RDW Plt Count Lymph % (Auto) Sterling % (Auto) Sterling # Seg Neutrophils % Seg Neuts % (Manual) Lymphocytes % (Manual) Monocytes % (Manual) Seg Neutrophils # Seg Neutrophils # Man Lymphocytes # (Manual) Monocytes # (Manual) Eosinophils # (Manual) Basophils # (Manual) PT INR APTT Heparin Anti-Xa Level POC ABG pH POC ABG pCO2 POC ABG pO2 Sodium Potassium Chloride Carbon Dioxide BUN Creatinine Glucose POC Glucose 180 H 151 H 106 H Calcium Phosphorus Magnesium AST C-Reactive Protein Total Protein Albumin Lipase Urine WBC (Auto) Urine Chloride Urine Total Protein 10/17/16 10/17/16 10/17/16 04:59 06:03 06:35 WBC RBC Hgb Hct MCV RDW Plt Count Lymph % (Auto) Sterling % (Auto) Sterling # Seg Neutrophils % Seg Neuts % (Manual) Lymphocytes % (Manual) Monocytes % (Manual) Seg Neutrophils # Seg Neutrophils # Man Lymphocytes # (Manual) Monocytes # (Manual) Eosinophils # (Manual) Basophils # (Manual) PT INR APTT Heparin Anti-Xa Level POC ABG pH 7.453 H POC ABG pCO2 30.1 L POC ABG pO2 111 H Sodium Potassium Chloride Carbon Dioxide BUN Creatinine Glucose POC Glucose 145 H 157 H Calcium Phosphorus Magnesium AST C-Reactive Protein Total Protein Albumin Lipase Urine WBC (Auto) Urine Chloride Urine Total Protein 10/17/16 10/17/16 10/17/16 07:08 07:11 08:01 WBC RBC Hgb Hct MCV RDW Plt Count Lymph % (Auto) Sterling % (Auto) Sterling # Seg Neutrophils % Seg Neuts % (Manual) Lymphocytes % (Manual) Monocytes % (Manual) Seg Neutrophils # Seg Neutrophils # Man Lymphocytes # (Manual) Monocytes # (Manual) Eosinophils # (Manual) Basophils # (Manual) PT INR APTT Heparin Anti-Xa Level POC ABG pH POC ABG pCO2 POC ABG pO2 Sodium 147 H Potassium Chloride 113.8 H Carbon Dioxide 19 L BUN Creatinine Glucose 136 H POC Glucose 136 H 152 H Calcium 7.7 L Phosphorus Magnesium AST C-Reactive Protein Total Protein Albumin Lipase Urine WBC (Auto) Urine Chloride Urine Total Protein 10/17/16 10/17/16 10/17/16 08:23 09:17 09:53 WBC 18.1 H RBC 3.01 L Hgb 9.7 L Hct 29.4 L MCV 98 H RDW Plt Count 116 L Lymph % (Auto) Sterling % (Auto) Sterling # Seg Neutrophils % Seg Neuts % (Manual) 77.0 H Lymphocytes % (Manual) 4.0 L Monocytes % (Manual) 12.0 H Seg Neutrophils # Seg Neutrophils # Man 13.9 H Lymphocytes # (Manual) 0.7 L Monocytes # (Manual) 2.2 H Eosinophils # (Manual) Basophils # (Manual) PT INR APTT Heparin Anti-Xa Level POC ABG pH POC ABG pCO2 POC ABG pO2 Sodium Potassium Chloride Carbon Dioxide BUN Creatinine Glucose POC Glucose 148 H 137 H Calcium Phosphorus Magnesium AST C-Reactive Protein Total Protein Albumin Lipase Urine WBC (Auto) Urine Chloride Urine Total Protein 10/17/16 10/17/16 10/17/16 11:43 16:07 17:42 WBC RBC Hgb Hct MCV RDW Plt Count Lymph % (Auto) Sterling % (Auto) Sterling # Seg Neutrophils % Seg Neuts % (Manual) Lymphocytes % (Manual) Monocytes % (Manual) Seg Neutrophils # Seg Neutrophils # Man Lymphocytes # (Manual) Monocytes # (Manual) Eosinophils # (Manual) Basophils # (Manual) PT 16.4 H INR 1.33 H APTT 38.8 H Heparin Anti-Xa Level POC ABG pH POC ABG pCO2 POC ABG pO2 Sodium Potassium Chloride Carbon Dioxide BUN Creatinine Glucose POC Glucose 179 H 153 H Calcium Phosphorus Magnesium AST C-Reactive Protein Total Protein Albumin Lipase Urine WBC (Auto) Urine Chloride Urine Total Protein 10/17/16 10/18/16 10/18/16 22:54 04:37 05:39 WBC RBC Hgb Hct MCV RDW Plt Count Lymph % (Auto) Sterling % (Auto) Sterling # Seg Neutrophils % Seg Neuts % (Manual) Lymphocytes % (Manual) Monocytes % (Manual) Seg Neutrophils # Seg Neutrophils # Man Lymphocytes # (Manual) Monocytes # (Manual) Eosinophils # (Manual) Basophils # (Manual) PT INR APTT Heparin Anti-Xa Level 0.27 L POC ABG pH 7.454 H POC ABG pCO2 30.8 L POC ABG pO2 115 H Sodium Potassium Chloride Carbon Dioxide BUN Creatinine Glucose POC Glucose 69 L Calcium Phosphorus Magnesium AST C-Reactive Protein Total Protein Albumin Lipase Urine WBC (Auto) Urine Chloride Urine Total Protein 10/18/16 10/18/16 10/18/16 06:46 06:46 06:46 WBC 20.5 H RBC 2.62 L Hgb 8.4 L Hct 26.0 L MCV 100 H RDW Plt Count Lymph % (Auto) Sterling % (Auto) Sterling # Seg Neutrophils % Seg Neuts % (Manual) 75.0 H Lymphocytes % (Manual) 9.0 L Monocytes % (Manual) 14.0 H Seg Neutrophils # Seg Neutrophils # Man 15.4 H Lymphocytes # (Manual) Monocytes # (Manual) 2.9 H Eosinophils # (Manual) Basophils # (Manual) PT INR APTT Heparin Anti-Xa Level POC ABG pH POC ABG pCO2 POC ABG pO2 Sodium Potassium Chloride 110.6 H Carbon Dioxide BUN Creatinine 1.3 H Glucose 153 H POC Glucose Calcium 8.0 L Phosphorus Magnesium 1.6 L AST C-Reactive Protein Total Protein Albumin Lipase Urine WBC (Auto) Urine Chloride Urine Total Protein 10/18/16 10/18/16 10/18/16 07:30 11:37 17:51 WBC RBC Hgb Hct MCV RDW Plt Count Lymph % (Auto) Sterling % (Auto) Sterling # Seg Neutrophils % Seg Neuts % (Manual) Lymphocytes % (Manual) Monocytes % (Manual) Seg Neutrophils # Seg Neutrophils # Man Lymphocytes # (Manual) Monocytes # (Manual) Eosinophils # (Manual) Basophils # (Manual) PT INR APTT Heparin Anti-Xa Level POC ABG pH POC ABG pCO2 POC ABG pO2 Sodium Potassium Chloride Carbon Dioxide BUN Creatinine Glucose POC Glucose 162 H 156 H 164 H Calcium Phosphorus Magnesium AST C-Reactive Protein Total Protein Albumin Lipase Urine WBC (Auto) Urine Chloride Urine Total Protein 10/18/16 10/19/16 10/19/16 23:44 03:59 05:13 WBC 18.2 H RBC 2.76 L Hgb 9.0 L Hct 27.7 L MCV 100 H RDW Plt Count Lymph % (Auto) Sterling % (Auto) Sterling # Seg Neutrophils % Seg Neuts % (Manual) 76.0 H Lymphocytes % (Manual) 10.0 L Monocytes % (Manual) Seg Neutrophils # Seg Neutrophils # Man 13.8 H Lymphocytes # (Manual) Monocytes # (Manual) Eosinophils # (Manual) Basophils # (Manual) PT INR APTT Heparin Anti-Xa Level POC ABG pH POC ABG pCO2 32.2 L POC ABG pO2 128 H Sodium Potassium Chloride Carbon Dioxide BUN Creatinine Glucose POC Glucose 278 H Calcium Phosphorus Magnesium AST C-Reactive Protein Total Protein Albumin Lipase Urine WBC (Auto) Urine Chloride Urine Total Protein 10/19/16 10/19/16 10/19/16 06:01 06:30 12:20 WBC RBC Hgb Hct MCV RDW Plt Count Lymph % (Auto) Sterling % (Auto) Sterling # Seg Neutrophils % Seg Neuts % (Manual) Lymphocytes % (Manual) Monocytes % (Manual) Seg Neutrophils # Seg Neutrophils # Man Lymphocytes # (Manual) Monocytes # (Manual) Eosinophils # (Manual) Basophils # (Manual) PT INR APTT Heparin Anti-Xa Level POC ABG pH POC ABG pCO2 POC ABG pO2 Sodium Potassium Chloride Carbon Dioxide 18 L BUN Creatinine 1.3 H Glucose 262 H POC Glucose 261 H 349 H Calcium 7.7 L Phosphorus 4.8 H D Magnesium AST C-Reactive Protein Total Protein Albumin Lipase Urine WBC (Auto) Urine Chloride Urine Total Protein 10/19/16 10/20/16 10/20/16 16:48 00:17 05:20 WBC 22.5 H RBC 2.80 L Hgb 8.9 L Hct 28.3 L MCV 101 H RDW Plt Count Lymph % (Auto) Sterling % (Auto) Sterling # Seg Neutrophils % Seg Neuts % (Manual) Lymphocytes % (Manual) 10.0 L Monocytes % (Manual) Seg Neutrophils # Seg Neutrophils # Man 13.3 H Lymphocytes # (Manual) Monocytes # (Manual) 1.1 H Eosinophils # (Manual) 0.7 H Basophils # (Manual) PT INR APTT Heparin Anti-Xa Level POC ABG pH POC ABG pCO2 POC ABG pO2 Sodium Potassium Chloride Carbon Dioxide BUN Creatinine Glucose POC Glucose 248 H 346 H Calcium Phosphorus Magnesium AST C-Reactive Protein Total Protein Albumin Lipase Urine WBC (Auto) Urine Chloride Urine Total Protein 10/20/16 10/20/16 10/20/16 05:20 05:20 06:05 WBC RBC Hgb Hct MCV RDW Plt Count Lymph % (Auto) Sterling % (Auto) Sterling # Seg Neutrophils % Seg Neuts % (Manual) Lymphocytes % (Manual) Monocytes % (Manual) Seg Neutrophils # Seg Neutrophils # Man Lymphocytes # (Manual) Monocytes # (Manual) Eosinophils # (Manual) Basophils # (Manual) PT INR APTT Heparin Anti-Xa Level 0.20 L POC ABG pH POC ABG pCO2 POC ABG pO2 Sodium Potassium Chloride Carbon Dioxide BUN 20 H Creatinine Glucose 374 H POC Glucose 337 H Calcium 8.3 L Phosphorus Magnesium AST C-Reactive Protein Total Protein Albumin Lipase Urine WBC (Auto) Urine Chloride Urine Total Protein 10/20/16 10/20/16 10/20/16 11:49 13:59 17:56 WBC RBC Hgb Hct MCV RDW Plt Count Lymph % (Auto) Sterling % (Auto) Sterling # Seg Neutrophils % Seg Neuts % (Manual) Lymphocytes % (Manual) Monocytes % (Manual) Seg Neutrophils # Seg Neutrophils # Man Lymphocytes # (Manual) Monocytes # (Manual) Eosinophils # (Manual) Basophils # (Manual) PT INR APTT Heparin Anti-Xa Level 2.00 H POC ABG pH POC ABG pCO2 POC ABG pO2 Sodium Potassium Chloride Carbon Dioxide BUN Creatinine Glucose POC Glucose 305 H 362 H Calcium Phosphorus Magnesium AST C-Reactive Protein Total Protein Albumin Lipase Urine WBC (Auto) Urine Chloride Urine Total Protein 10/20/16 10/21/16 10/21/16 23:52 05:00 05:49 WBC 22.9 H RBC 2.49 L Hgb 7.7 L Hct 25.6 L MCV 103 H RDW Plt Count Lymph % (Auto) Sterling % (Auto) Sterling # Seg Neutrophils % Seg Neuts % (Manual) 94.0 H Lymphocytes % (Manual) 1.0 L Monocytes % (Manual) Seg Neutrophils # Seg Neutrophils # Man 21.5 H Lymphocytes # (Manual) 0.2 L Monocytes # (Manual) 1.1 H Eosinophils # (Manual) Basophils # (Manual) PT INR APTT Heparin Anti-Xa Level POC ABG pH POC ABG pCO2 POC ABG pO2 Sodium Potassium Chloride Carbon Dioxide BUN Creatinine Glucose POC Glucose 252 H 180 H Calcium Phosphorus Magnesium AST C-Reactive Protein Total Protein Albumin Lipase Urine WBC (Auto) Urine Chloride Urine Total Protein 10/21/16 10/21/16 10/21/16 11:47 11:49 14:10 WBC RBC Hgb Hct MCV RDW Plt Count Lymph % (Auto) [place] % (Auto) Sterling # Seg Neutrophils % Seg Neuts % (Manual) Lymphocytes % (Manual) Monocytes % (Manual) Seg Neutrophils # Seg Neutrophils # Man Lymphocytes # (Manual) Monocytes # (Manual) Eosinophils # (Manual) Basophils # (Manual) PT INR APTT Heparin Anti-Xa Level POC ABG pH POC ABG pCO2 POC ABG pO2 Sodium Potassium Chloride Carbon Dioxide BUN Creatinine Glucose POC Glucose 50 L 56 L 140 H Calcium Phosphorus Magnesium AST C-Reactive Protein Total Protein Albumin Lipase Urine WBC (Auto) Urine Chloride Urine Total Protein 10/21/16 10/21/16 10/22/16 18:24 Unknown 00:07 WBC RBC Hgb Hct MCV RDW Plt Count Lymph % (Auto) [place] % (Auto) [place] # Seg Neutrophils % Seg Neuts % (Manual) Lymphocytes % (Manual) Monocytes % (Manual) Seg Neutrophils # Seg Neutrophils # Man Lymphocytes # (Manual) Monocytes # (Manual) Eosinophils # (Manual) Basophils # (Manual) PT INR APTT Heparin Anti-Xa Level POC ABG pH POC ABG pCO2 POC ABG pO2 Sodium 150 H Potassium 3.1 L Chloride 112.4 H Carbon Dioxide BUN 25 H Creatinine 1.4 H Glucose POC Glucose 175 H 218 H Calcium 8.0 L Phosphorus Magnesium AST C-Reactive Protein Total Protein Albumin Lipase Urine WBC (Auto) Urine Chloride Urine Total Protein 10/22/16 10/22/16 04:20 04:20 WBC 20.8 H RBC 2.37 L Hgb 7.5 L Hct 23.9 L MCV 101 H RDW Plt Count Lymph % (Auto) [place] % (Auto) Sterling # Seg Neutrophils % Seg Neuts % (Manual) 89.0 H Lymphocytes % (Manual) 7.0 L Monocytes % (Manual) Seg Neutrophils # Seg Neutrophils # Man 18.5 H Lymphocytes # (Manual) Monocytes # (Manual) Eosinophils # (Manual) Basophils # (Manual) 0.2 H PT INR APTT Heparin Anti-Xa Level POC ABG pH POC ABG pCO2 POC ABG pO2 Sodium 148 H Potassium 2.9 L* Chloride 109.4 H Carbon Dioxide BUN 26 H Creatinine Glucose 140 H POC Glucose Calcium 7.5 L Phosphorus Magnesium AST C-Reactive Protein Total Protein Albumin Lipase Urine WBC (Auto) Urine Chloride Urine Total Protein Assessment and Plan 66 YO F admitted 10/13 w/ Resp failure requiring intubation, DKA, Sepsis d/t UTI and SFA thrombosis who I have been asked to consult for AMS.Pt has intact symmetric neurologic exam aside from impaired level of arousal and concentration , consistent with toxic metabolic infectious derangement as the etiology for neurologic decompensation. She follows midline and peripheral commands w/ some nodding appropriately and @ least 3/5 power throughout. There is no new focality on neurologic examination to suggest acute [employer] process e.g. Stroke, Seizure or Meningitis. CTH/NH4 neg. EEG mild-mod nonspecific diffuse cerebral dysfunction ? maximal in LT region vs. artifact. Recommendations: 1. MRI Brain +/- Marco 2. Check serum TSH/Vit B12 and correct as necessary 3. Cont Infectious work up/medical management for UTI, PNA, cellulitis, bacteremia, etc. 4. Avoid hyponatremia, hypo/hyper-calcemia, hypo/hyperglycemia, acidosis, hypoxia/hypoxemia, hypercarbia/hypercapnia 5. Avoid institution of any psychoactive medications (e.g. antihistamines, anticholinergics, BZD, hypnotics, opiates) as able unless low doses of low potency antipsychotic needed for behavioral issues complicating medical care 6. Thiamine/Folate/CIWA protocol accordingly for EtOH withdrawal 7. Cont home meds-there is no neurologic indication to change
--- NOTE | 2016-10-22 10:18 | Progress Note ---
Assessment and Plan - Patient Problems (1) Acute respiratory failure with hypercapnia Current Visit: Yes Status: Acute Plan to address problem: - continue aspiration precautions / VAP bundles - continue bronchodilators and pulmonary toilet - wean oxygen to keep sats > 94% - resume graded weaning at Psupp of 20 cmH2O - ETT day # 10-11 and will need a tracheostomy if not meeting weaning criteria shortly (2) Altered mental status Current Visit: Yes Status: Acute Qualifiers: Altered mental status type: A Coma depth: C Coma timing: C Plan to address problem: - no active seizures - following clinically - seen by neurology and will follow their recommendations - no seizures on EEG (3) LUCY (acute kidney injury) Current Visit: Yes Status: Acute Plan to address problem: - replaced potasium - continue free water flushes - follow I's & O's - improving numbers (4) DKA (diabetic ketoacidoses) Current Visit: Yes Status: Acute Qualifiers: Diabetes mellitus type: D Diabetes mellitus complication detail: D Plan to address problem: - off IV insulin - continue SSI (5) Sepsis Current Visit: No Status: Acute Qualifiers: Sepsis type: S Plan to address problem: - continue anti-infectives per ID recs - follow clinically - trend lactate and CRP prn - treat C-diff empirically (6) Tachycardia Current Visit: Yes Status: Acute Plan to address problem: - treat pain - treat sepsis - get full thyroid function tests (TSH low) (7) Discharge planning issues Current Visit: No Status: Acute Plan to address problem: - will have LTAC evaluate ...remains critically ill on life sustaining treatments including MVS and at high risk for further deterioration including ...34' CCT Subjective Date of service: 10/22/16 Principal diagnosis: respiratory failure on mechanical ventilatory support, DKA Interval history: Seen and examined at bedside; 24 hour events reviewed; nursing and respiratory care staff consulted; no adverse overnight events reported to me; resting in bed ; remains on MVS and failed SBT earlier; no emesis or overt aspiration; AMS is persistent but appears to nod head appropriately to pain question Objective Vital Signs - 12hr 10/21/16 10/21/16 10/21/16 22:30 23:00 23:30 Temperature Pulse Rate 111 H 123 H 126 H Pulse Rate [ Apical] Pulse Rate [ From Monitor] Respiratory 28 H 13 24 Rate Blood Pressure 144/57 152/58 161/68 O2 Sat by Pulse 99 98 99 Oximetry 10/21/16 10/22/16 10/22/16 23:33 00:00 00:17 Temperature Pulse Rate 128 H 126 H 127 H Pulse Rate [ 102 H Apical] Pulse Rate [ From Monitor] Respiratory 19 Rate Blood Pressure 152/58 160/64 160/74 O2 Sat by Pulse 100 98 Oximetry 10/22/16 10/22/16 10/22/16 00:30 00:52 01:00 Temperature 102.5 F H Pulse Rate 105 H 110 H Pulse Rate [ Apical] Pulse Rate [ From Monitor] Respiratory 17 14 Rate Blood Pressure 149/60 146/56 O2 Sat by Pulse 98 97 Oximetry 10/22/16 10/22/16 10/22/16 01:30 02:00 02:30 Temperature Pulse Rate 111 H 111 H 108 H Pulse Rate [ Apical] Pulse Rate [ From Monitor] Respiratory 21 22 20 Rate Blood Pressure 145/55 143/54 140/55 O2 Sat by Pulse 97 97 99 Oximetry 10/22/16 10/22/16 10/22/16 03:00 03:11 03:30 Temperature Pulse Rate 99 H 97 H 94 H Pulse Rate [ Apical] Pulse Rate [ From Monitor] Respiratory 20 23 Rate Blood Pressure 129/53 129/53 129/57 O2 Sat by Pulse 99 98 98 Oximetry 10/22/16 10/22/16 10/22/16 04:00 04:30 04:45 Temperature 96.7 F L Pulse Rate 90 90 Pulse Rate [ 93 H Apical] Pulse Rate [ 93 H From Monitor] Respiratory 20 20 Rate Blood Pressure 129/58 132/62 O2 Sat by Pulse 98 100 Oximetry 10/22/16 10/22/16 10/22/16 05:00 05:30 05:56 Temperature Pulse Rate 91 H 87 150 H Pulse Rate [ Apical] Pulse Rate [ From Monitor] Respiratory 20 20 Rate Blood Pressure 140/69 141/65 138/78 O2 Sat by Pulse 100 100 Oximetry 10/22/16 10/22/16 06:01 08:00 Temperature 103.1 F H Pulse Rate 145 H 158 H Pulse Rate [ Apical] Pulse Rate [ From Monitor] Respiratory 15 Rate Blood Pressure 171/98 168/97 O2 Sat by Pulse 100 98 Oximetry Constitutional: no acute distress, other (sedation vacation ongoing) Eyes: non-icteric ENT: oropharynx moist Neck: supple, no lymphadenopathy Effort: mildly labored Ascultation: Bilateral: diminished breath sounds, rales (bases) Cardiovascular: regular rate and rhythm Gastrointestinal: normoactive bowel sounds, soft, non-tender, non-distended Integumentary: normal Extremities: no cyanosis, no edema, no ischemia or petechiae, other (cold right foot with digital ischemia) Neurologic: unable to assess Psychiatric: other (sedated) CBC and BMP: 10/22/16 04:20 10/22/16 04:20 ABG, PT/INR, D-dimer: ABG POC ABG pH 7.382 (7.35-7.45) 10/19/16 03:59 POC ABG pCO2 32.2 (35-45) L 10/19/16 03:59 POC ABG pO2 128 (80-105) H 10/19/16 03:59 POC ABG HCO3 19.1 10/19/16 03:59 POC ABG Total CO2 20 10/19/16 03:59 POC ABG O2 Sat 99 10/19/16 03:59 PT/INR, D-dimer PT 16.4 Sec. (12.2-14.9) H 10/17/16 16:07 INR 1.33 (0.87-1.13) H 10/17/16 16:07 Abnormal lab findings: Abnormal Labs 10/13/16 10/13/16 10/13/16 06:38 06:38 07:23 WBC RBC Hgb Hct MCV RDW Plt Count Lymph % (Auto) [place] % (Auto) [place] # Seg Neutrophils % Seg Neuts % (Manual) Lymphocytes % (Manual) Monocytes % (Manual) Seg Neutrophils # Seg Neutrophils # Man Lymphocytes # (Manual) Monocytes # (Manual) Eosinophils # (Manual) Basophils # (Manual) PT INR APTT Heparin Anti-Xa Level POC ABG pH POC ABG pCO2 POC ABG pO2 Sodium Potassium 6.2 H* Chloride Carbon Dioxide 8 L* BUN 85 H Creatinine 2.8 H Glucose 602 H* POC Glucose 495 H Calcium 7.9 L Phosphorus 6.9 H D Magnesium 3.0 H AST C-Reactive Protein Total Protein Albumin Lipase Urine WBC (Auto) Urine Chloride Urine Total Protein 10/13/16 10/13/16 10/13/16 08:49 08:55 10:12 WBC RBC Hgb Hct MCV RDW Plt Count Lymph % (Auto) [place] % (Auto) [place] # Seg Neutrophils % Seg Neuts % (Manual) Lymphocytes % (Manual) Monocytes % (Manual) Seg Neutrophils # Seg Neutrophils # Man Lymphocytes # (Manual) Monocytes # (Manual) Eosinophils # (Manual) Basophils # (Manual) PT INR APTT Heparin Anti-Xa Level POC ABG pH POC ABG pCO2 POC ABG pO2 Sodium Potassium 5.6 H Chloride Carbon Dioxide 11 L BUN 77 H Creatinine 2.7 H Glucose 457 H POC Glucose > 500 H 424 H Calcium 8.0 L Phosphorus Magnesium AST C-Reactive Protein Total Protein Albumin Lipase Urine WBC (Auto) Urine Chloride Urine Total Protein 10/13/16 10/13/16 10/13/16 10:44 11:22 12:20 WBC RBC Hgb Hct MCV RDW Plt Count Lymph % (Auto) [place] % (Auto) [place] # Seg Neutrophils % Seg Neuts % (Manual) Lymphocytes % (Manual) Monocytes % (Manual) Seg Neutrophils # Seg Neutrophils # Man Lymphocytes # (Manual) Monocytes # (Manual) Eosinophils # (Manual) Basophils # (Manual) PT INR APTT Heparin Anti-Xa Level POC ABG pH POC ABG pCO2 POC ABG pO2 Sodium Potassium 5.4 H Chloride Carbon Dioxide 14 L BUN 72 H Creatinine 2.6 H Glucose 383 H POC Glucose 391 H 313 H Calcium 8.2 L Phosphorus Magnesium AST C-Reactive Protein Total Protein Albumin Lipase Urine WBC (Auto) Urine Chloride Urine Total Protein 10/13/16 10/13/16 10/13/16 13:32 14:44 15:57 WBC RBC Hgb Hct MCV RDW Plt Count Lymph % (Auto) [place] % (Auto) [place] # Seg Neutrophils % Seg Neuts % (Manual) Lymphocytes % (Manual) Monocytes % (Manual) Seg Neutrophils # Seg Neutrophils # Man Lymphocytes # (Manual) Monocytes # (Manual) Eosinophils # (Manual) Basophils # (Manual) PT INR APTT Heparin Anti-Xa Level POC ABG pH POC ABG pCO2 POC ABG pO2 Sodium Potassium Chloride Carbon Dioxide BUN Creatinine Glucose POC Glucose 296 H 210 H 190 H Calcium Phosphorus Magnesium AST C-Reactive Protein Total Protein Albumin Lipase Urine WBC (Auto) Urine Chloride Urine Total Protein 10/13/16 10/13/16 10/13/16 16:14 16:14 17:17 WBC RBC Hgb Hct MCV RDW Plt Count Lymph % (Auto) [place] % (Auto) [place] # Seg Neutrophils % Seg Neuts % (Manual) Lymphocytes % (Manual) Monocytes % (Manual) Seg Neutrophils # Seg Neutrophils # Man Lymphocytes # (Manual) Monocytes # (Manual) Eosinophils # (Manual) Basophils # (Manual) PT INR APTT Heparin Anti-Xa Level POC ABG pH POC ABG pCO2 POC ABG pO2 Sodium Potassium Chloride Carbon Dioxide 17 L BUN 58 H Creatinine 1.8 H Glucose 172 H POC Glucose 193 H Calcium 7.7 L Phosphorus Magnesium AST C-Reactive Protein 10.50 H Total Protein Albumin Lipase Urine WBC (Auto) Urine Chloride Urine Total Protein 10/13/16 10/13/16 10/13/16 17:55 18:32 19:41 WBC RBC Hgb Hct MCV RDW Plt Count Lymph % (Auto) [place] % (Auto) [place] # Seg Neutrophils % Seg Neuts % (Manual) Lymphocytes % (Manual) Monocytes % (Manual) Seg Neutrophils # Seg Neutrophils # Man Lymphocytes # (Manual) Monocytes # (Manual) Eosinophils # (Manual) Basophils # (Manual) PT INR APTT Heparin Anti-Xa Level POC ABG pH POC ABG pCO2 30.6 L POC ABG pO2 218 H Sodium Potassium Chloride Carbon Dioxide BUN Creatinine Glucose POC Glucose 192 H 177 H Calcium Phosphorus Magnesium AST C-Reactive Protein Total Protein Albumin Lipase Urine WBC (Auto) Urine Chloride Urine Total Protein 10/13/16 10/13/16 10/13/16 20:54 22:07 23:13 WBC RBC Hgb Hct MCV RDW Plt Count Lymph % (Auto) [place] % (Auto) [place] # Seg Neutrophils % Seg Neuts % (Manual) Lymphocytes % (Manual) Monocytes % (Manual) Seg Neutrophils # Seg Neutrophils # Man Lymphocytes # (Manual) Monocytes # (Manual) Eosinophils # (Manual) Basophils # (Manual) PT INR APTT Heparin Anti-Xa Level POC ABG pH POC ABG pCO2 POC ABG pO2 Sodium Potassium Chloride Carbon Dioxide BUN Creatinine Glucose POC Glucose 178 H 160 H 168 H Calcium Phosphorus Magnesium AST C-Reactive Protein Total Protein Albumin Lipase Urine WBC (Auto) Urine Chloride Urine Total Protein 10/13/16 10/13/16 10/14/16 23:25 Unknown 00:21 WBC RBC Hgb Hct MCV RDW Plt Count Lymph % (Auto) [place] % (Auto) [place] # Seg Neutrophils % Seg Neuts % (Manual) Lymphocytes % (Manual) Monocytes % (Manual) Seg Neutrophils # Seg Neutrophils # Man Lymphocytes # (Manual) Monocytes # (Manual) Eosinophils # (Manual) Basophils # (Manual) PT INR APTT Heparin Anti-Xa Level POC ABG pH POC ABG pCO2 POC ABG pO2 Sodium 148 H Potassium Chloride 114.6 H Carbon Dioxide 17 L BUN 56 H Creatinine 1.6 H Glucose 151 H POC Glucose 171 H Calcium 7.8 L Phosphorus Magnesium AST C-Reactive Protein Total Protein Albumin Lipase Urine WBC (Auto) Urine Chloride 10.0 L Urine Total Protein < 4 L 10/14/16 10/14/16 10/14/16 01:22 02:29 03:30 WBC RBC Hgb Hct MCV RDW Plt Count Lymph % (Auto) [place] % (Auto) [place] # Seg Neutrophils % Seg Neuts % (Manual) Lymphocytes % (Manual) Monocytes % (Manual) Seg Neutrophils # Seg Neutrophils # Man Lymphocytes # (Manual) Monocytes # (Manual) Eosinophils # (Manual) Basophils # (Manual) PT INR APTT Heparin Anti-Xa Level POC ABG pH POC ABG pCO2 POC ABG pO2 Sodium Potassium Chloride Carbon Dioxide BUN Creatinine Glucose POC Glucose 144 H 136 H 143 H Calcium Phosphorus Magnesium AST C-Reactive Protein Total Protein Albumin Lipase Urine WBC (Auto) Urine Chloride Urine Total Protein 10/14/16 10/14/16 10/14/16 04:28 05:16 05:44 WBC RBC Hgb Hct MCV RDW Plt Count Lymph % (Auto) [place] % (Auto) [place] # Seg Neutrophils % Seg Neuts % (Manual) Lymphocytes % (Manual) Monocytes % (Manual) Seg Neutrophils # Seg Neutrophils # Man Lymphocytes # (Manual) Monocytes # (Manual) Eosinophils # (Manual) Basophils # (Manual) PT INR APTT Heparin Anti-Xa Level POC ABG pH POC ABG pCO2 28.2 L POC ABG pO2 125 H Sodium Potassium Chloride Carbon Dioxide BUN Creatinine Glucose POC Glucose 133 H 160 H Calcium Phosphorus Magnesium AST C-Reactive Protein Total Protein Albumin Lipase Urine WBC (Auto) Urine Chloride Urine Total Protein 10/14/16 10/14/16 10/14/16 06:12 06:45 07:03 WBC RBC Hgb Hct MCV RDW Plt Count Lymph % (Auto) [place] % (Auto) [place] # Seg Neutrophils % Seg Neuts % (Manual) Lymphocytes % (Manual) Monocytes % (Manual) Seg Neutrophils # Seg Neutrophils # Man Lymphocytes # (Manual) Monocytes # (Manual) Eosinophils # (Manual) Basophils # (Manual) PT INR APTT Heparin Anti-Xa Level POC ABG pH POC ABG pCO2 POC ABG pO2 Sodium 149 H Potassium Chloride 115.4 H Carbon Dioxide 17 L BUN 45 H Creatinine 1.5 H Glucose 139 H POC Glucose 149 H Calcium 7.4 L Phosphorus 1.0 L D Magnesium AST C-Reactive Protein Total Protein Albumin Lipase Urine WBC (Auto) Urine Chloride Urine Total Protein 10/14/16 10/14/16 10/14/16 07:03 08:02 09:16 WBC RBC Hgb Hct MCV RDW Plt Count Lymph % (Auto) [place] % (Auto) [place] # Seg Neutrophils % Seg Neuts % (Manual) Lymphocytes % (Manual) Monocytes % (Manual) Seg Neutrophils # Seg Neutrophils # Man Lymphocytes # (Manual) Monocytes # (Manual) Eosinophils # (Manual) Basophils # (Manual) PT INR APTT Heparin Anti-Xa Level POC ABG pH POC ABG pCO2 POC ABG pO2 Sodium Potassium Chloride Carbon Dioxide BUN Creatinine Glucose POC Glucose 156 H 158 H Calcium Phosphorus Magnesium AST C-Reactive Protein Total Protein Albumin Lipase 738 H Urine WBC (Auto) Urine Chloride Urine Total Protein 10/14/16 10/14/16 10/14/16 10:26 11:03 11:57 WBC RBC Hgb Hct MCV RDW Plt Count Lymph % (Auto) [place] % (Auto) [place] # Seg Neutrophils % Seg Neuts % (Manual) Lymphocytes % (Manual) Monocytes % (Manual) Seg Neutrophils # Seg Neutrophils # Man Lymphocytes # (Manual) Monocytes # (Manual) Eosinophils # (Manual) Basophils # (Manual) PT INR APTT Heparin Anti-Xa Level POC ABG pH 7.198 L POC ABG pCO2 47.5 H POC ABG pO2 Sodium Potassium Chloride Carbon Dioxide BUN Creatinine Glucose POC Glucose 174 H 189 H Calcium Phosphorus Magnesium AST C-Reactive Protein Total Protein Albumin Lipase Urine WBC (Auto) Urine Chloride Urine Total Protein 10/14/16 10/14/16 10/14/16 12:02 12:02 13:11 WBC 13.4 H RBC 3.60 L Hgb Hct MCV 98 H D RDW 13.1 L Plt Count Lymph % (Auto) [place] % (Auto) [place] # Seg Neutrophils % Seg Neuts % (Manual) Lymphocytes % (Manual) Monocytes % (Manual) Seg Neutrophils # Seg Neutrophils # Man Lymphocytes # (Manual) Monocytes # (Manual) Eosinophils # (Manual) Basophils # (Manual) PT INR APTT Heparin Anti-Xa Level POC ABG pH POC ABG pCO2 POC ABG pO2 Sodium Potassium Chloride 110.7 H Carbon Dioxide 19 L BUN 38 H Creatinine 1.4 H Glucose 182 H POC Glucose 173 H Calcium 7.5 L Phosphorus Magnesium AST C-Reactive Protein Total Protein Albumin Lipase Urine WBC (Auto) Urine Chloride Urine Total Protein 10/14/16 10/14/16 10/14/16 14:24 15:31 16:36 WBC RBC Hgb Hct MCV RDW Plt Count Lymph % (Auto) [place] % (Auto) [place] # Seg Neutrophils % Seg Neuts % (Manual) Lymphocytes % (Manual) Monocytes % (Manual) Seg Neutrophils # Seg Neutrophils # Man Lymphocytes # (Manual) Monocytes # (Manual) Eosinophils # (Manual) Basophils # (Manual) PT INR APTT Heparin Anti-Xa Level POC ABG pH POC ABG pCO2 POC ABG pO2 Sodium Potassium Chloride Carbon Dioxide BUN Creatinine Glucose POC Glucose 123 H 124 H 156 H Calcium Phosphorus Magnesium AST C-Reactive Protein Total Protein Albumin Lipase Urine WBC (Auto) Urine Chloride Urine Total Protein 10/14/16 10/14/16 10/14/16 17:43 19:00 20:08 WBC RBC Hgb Hct MCV RDW Plt Count Lymph % (Auto) [place] % (Auto) [place] # Seg Neutrophils % Seg Neuts % (Manual) Lymphocytes % (Manual) Monocytes % (Manual) Seg Neutrophils # Seg Neutrophils # Man Lymphocytes # (Manual) Monocytes # (Manual) Eosinophils # (Manual) Basophils # (Manual) PT INR APTT Heparin Anti-Xa Level POC ABG pH POC ABG pCO2 POC ABG pO2 Sodium Potassium Chloride Carbon Dioxide BUN Creatinine Glucose POC Glucose 154 H 123 H 138 H Calcium Phosphorus Magnesium AST C-Reactive Protein Total Protein Albumin Lipase Urine WBC (Auto) Urine Chloride Urine Total Protein 10/14/16 10/14/16 10/14/16 21:17 22:25 23:37 WBC RBC Hgb Hct MCV RDW Plt Count Lymph % (Auto) [place] % (Auto) [place] # Seg Neutrophils % Seg Neuts % (Manual) Lymphocytes % (Manual) Monocytes % (Manual) Seg Neutrophils # Seg Neutrophils # Man Lymphocytes # (Manual) Monocytes # (Manual) Eosinophils # (Manual) Basophils # (Manual) PT INR APTT Heparin Anti-Xa Level POC ABG pH POC ABG pCO2 POC ABG pO2 Sodium Potassium Chloride Carbon Dioxide BUN Creatinine Glucose POC Glucose 148 H 132 H 137 H Calcium Phosphorus Magnesium AST C-Reactive Protein Total Protein Albumin Lipase Urine WBC (Auto) Urine Chloride Urine Total Protein 10/15/16 10/15/16 10/15/16 00:49 01:53 03:06 WBC RBC Hgb Hct MCV RDW Plt Count Lymph % (Auto) [place] % (Auto) [place] # Seg Neutrophils % Seg Neuts % (Manual) Lymphocytes % (Manual) Monocytes % (Manual) Seg Neutrophils # Seg Neutrophils # Man Lymphocytes # (Manual) Monocytes # (Manual) Eosinophils # (Manual) Basophils # (Manual) PT INR APTT Heparin Anti-Xa Level POC ABG pH POC ABG pCO2 POC ABG pO2 Sodium Potassium Chloride Carbon Dioxide BUN Creatinine Glucose POC Glucose 132 H 134 H 134 H Calcium Phosphorus Magnesium AST C-Reactive Protein Total Protein Albumin Lipase Urine WBC (Auto) Urine Chloride Urine Total Protein 10/15/16 10/15/16 10/15/16 04:40 04:46 06:21 WBC RBC Hgb Hct MCV RDW Plt Count Lymph % (Auto) [place] % (Auto) [place] # Seg Neutrophils % Seg Neuts % (Manual) Lymphocytes % (Manual) Monocytes % (Manual) Seg Neutrophils # Seg Neutrophils # Man Lymphocytes # (Manual) Monocytes # (Manual) Eosinophils # (Manual) Basophils # (Manual) PT INR APTT Heparin Anti-Xa Level POC ABG pH POC ABG pCO2 30.7 L POC ABG pO2 108 H Sodium Potassium Chloride 109.0 H Carbon Dioxide 17 L BUN 27 H Creatinine Glucose 124 H POC Glucose 160 H Calcium 7.5 L Phosphorus Magnesium AST 79 H C-Reactive Protein Total Protein 5.5 L Albumin 3.0 L Lipase Urine WBC (Auto) Urine Chloride Urine Total Protein 10/15/16 10/15/16 10/15/16 07:12 08:01 09:03 WBC RBC Hgb Hct MCV RDW Plt Count Lymph % (Auto) [place] % (Auto) [place] # Seg Neutrophils % Seg Neuts % (Manual) Lymphocytes % (Manual) Monocytes % (Manual) Seg Neutrophils # Seg Neutrophils # Man Lymphocytes # (Manual) Monocytes # (Manual) Eosinophils # (Manual) Basophils # (Manual) PT INR APTT Heparin Anti-Xa Level POC ABG pH POC ABG pCO2 POC ABG pO2 Sodium Potassium Chloride Carbon Dioxide BUN Creatinine Glucose POC Glucose 179 H 187 H 165 H Calcium Phosphorus Magnesium AST C-Reactive Protein Total Protein Albumin Lipase Urine WBC (Auto) Urine Chloride Urine Total Protein 10/15/16 10/15/16 10/15/16 10:06 10:06 10:07 WBC 12.1 H RBC 3.01 L Hgb 9.7 L Hct 29.6 L MCV 98 H RDW Plt Count 129 L Lymph % (Auto) [place] % (Auto) [place] # Seg Neutrophils % Seg Neuts % (Manual) Lymphocytes % (Manual) Monocytes % (Manual) Seg Neutrophils # Seg Neutrophils # Man Lymphocytes # (Manual) Monocytes # (Manual) Eosinophils # (Manual) Basophils # (Manual) PT INR APTT Heparin Anti-Xa Level POC ABG pH POC ABG pCO2 POC ABG pO2 Sodium Potassium 3.2 L D Chloride 109.6 H Carbon Dioxide 18 L BUN 22 H Creatinine Glucose 127 H POC Glucose 147 H Calcium 7.0 L Phosphorus Magnesium AST C-Reactive Protein Total Protein Albumin Lipase Urine WBC (Auto) Urine Chloride Urine Total Protein 10/15/16 10/15/16 10/15/16 11:05 11:06 11:57 WBC RBC Hgb Hct MCV RDW Plt Count Lymph % (Auto) [place] % (Auto) [place] # Seg Neutrophils % Seg Neuts % (Manual) Lymphocytes % (Manual) Monocytes % (Manual) Seg Neutrophils # Seg Neutrophils # Man Lymphocytes # (Manual) Monocytes # (Manual) Eosinophils # (Manual) Basophils # (Manual) PT INR APTT Heparin Anti-Xa Level POC ABG pH 7.305 L POC ABG pCO2 POC ABG pO2 Sodium Potassium Chloride Carbon Dioxide BUN Creatinine Glucose POC Glucose 145 H Calcium Phosphorus Magnesium AST C-Reactive Protein Total Protein Albumin Lipase Urine WBC (Auto) 7.0 H Urine Chloride Urine Total Protein 10/15/16 10/15/16 10/15/16 12:04 13:59 15:24 WBC RBC Hgb Hct MCV RDW Plt Count Lymph % (Auto) [place] % (Auto) [place] # Seg Neutrophils % Seg Neuts % (Manual) Lymphocytes % (Manual) Monocytes % (Manual) Seg Neutrophils # Seg Neutrophils # Man Lymphocytes # (Manual) Monocytes # (Manual) Eosinophils # (Manual) Basophils # (Manual) PT INR APTT Heparin Anti-Xa Level POC ABG pH POC ABG pCO2 POC ABG pO2 Sodium Potassium Chloride Carbon Dioxide BUN Creatinine Glucose POC Glucose 123 H 147 H 153 H Calcium Phosphorus Magnesium AST C-Reactive Protein Total Protein Albumin Lipase Urine WBC (Auto) Urine Chloride Urine Total Protein 10/15/16 10/15/16 10/15/16 16:30 17:34 18:30 WBC RBC Hgb Hct MCV RDW Plt Count Lymph % (Auto) [place] % (Auto) [place] # Seg Neutrophils % Seg Neuts % (Manual) Lymphocytes % (Manual) Monocytes % (Manual) Seg Neutrophils # Seg Neutrophils # Man Lymphocytes # (Manual) Monocytes # (Manual) Eosinophils # (Manual) Basophils # (Manual) PT INR APTT Heparin Anti-Xa Level POC ABG pH POC ABG pCO2 POC ABG pO2 Sodium Potassium Chloride Carbon Dioxide BUN Creatinine Glucose POC Glucose 223 H 236 H 164 H Calcium Phosphorus Magnesium AST C-Reactive Protein Total Protein Albumin Lipase Urine WBC (Auto) Urine Chloride Urine Total Protein 10/15/16 10/15/16 10/15/16 19:14 20:31 21:23 WBC RBC Hgb Hct MCV RDW Plt Count Lymph % (Auto) [place] % (Auto) [place] # Seg Neutrophils % Seg Neuts % (Manual) Lymphocytes % (Manual) Monocytes % (Manual) Seg Neutrophils # Seg Neutrophils # Man Lymphocytes # (Manual) Monocytes # (Manual) Eosinophils # (Manual) Basophils # (Manual) PT INR APTT Heparin Anti-Xa Level POC ABG pH POC ABG pCO2 POC ABG pO2 Sodium Potassium Chloride Carbon Dioxide BUN Creatinine Glucose POC Glucose 138 H 158 H 158 H Calcium Phosphorus Magnesium AST C-Reactive Protein Total Protein Albumin Lipase Urine WBC (Auto) Urine Chloride Urine Total Protein 10/15/16 10/15/16 10/16/16 22:04 22:57 00:11 WBC RBC Hgb Hct MCV RDW Plt Count Lymph % (Auto) [place] % (Auto) [place] # Seg Neutrophils % Seg Neuts % (Manual) Lymphocytes % (Manual) Monocytes % (Manual) Seg Neutrophils # Seg Neutrophils # Man Lymphocytes # (Manual) Monocytes # (Manual) Eosinophils # (Manual) Basophils # (Manual) PT INR APTT Heparin Anti-Xa Level POC ABG pH POC ABG pCO2 POC ABG pO2 Sodium Potassium Chloride Carbon Dioxide BUN Creatinine Glucose POC Glucose 168 H 213 H 166 H Calcium Phosphorus Magnesium AST C-Reactive Protein Total Protein Albumin Lipase Urine WBC (Auto) Urine Chloride Urine Total Protein 10/16/16 10/16/16 10/16/16 01:16 02:32 03:38 WBC RBC Hgb Hct MCV RDW Plt Count Lymph % (Auto) [place] % (Auto) [place] # Seg Neutrophils % Seg Neuts % (Manual) Lymphocytes % (Manual) Monocytes % (Manual) Seg Neutrophils # Seg Neutrophils # Man Lymphocytes # (Manual) Monocytes # (Manual) Eosinophils # (Manual) Basophils # (Manual) PT INR APTT Heparin Anti-Xa Level POC ABG pH POC ABG pCO2 POC ABG pO2 Sodium Potassium Chloride Carbon Dioxide BUN Creatinine Glucose POC Glucose 171 H 164 H 147 H Calcium Phosphorus Magnesium AST C-Reactive Protein Total Protein Albumin Lipase Urine WBC (Auto) Urine Chloride Urine Total Protein 10/16/16 10/16/16 10/16/16 04:14 04:14 04:49 WBC RBC Hgb Hct MCV RDW Plt Count Lymph % (Auto) [place] % (Auto) [place] # Seg Neutrophils % Seg Neuts % (Manual) Lymphocytes % (Manual) Monocytes % (Manual) Seg Neutrophils # Seg Neutrophils # Man Lymphocytes # (Manual) Monocytes # (Manual) Eosinophils # (Manual) Basophils # (Manual) PT INR APTT Heparin Anti-Xa Level POC ABG pH POC ABG pCO2 POC ABG pO2 Sodium 147 H Potassium Chloride 110.9 H Carbon Dioxide 19 L BUN Creatinine Glucose 139 H POC Glucose 144 H Calcium 7.3 L Phosphorus 2.3 L Magnesium AST C-Reactive Protein Total Protein Albumin Lipase 143 H Urine WBC (Auto) Urine Chloride Urine Total Protein 10/16/16 10/16/16 10/16/16 05:03 05:41 05:58 WBC 16.5 H RBC 3.36 L Hgb Hct MCV 98 H RDW 13.1 L Plt Count Lymph % (Auto) 8.5 L [place] % (Auto) 7.6 H [place] # 1.3 H Seg Neutrophils % 83.3 H Seg Neuts % (Manual) Lymphocytes % (Manual) Monocytes % (Manual) Seg Neutrophils # 13.8 H Seg Neutrophils # Man Lymphocytes # (Manual) Monocytes # (Manual) Eosinophils # (Manual) Basophils # (Manual) PT INR APTT Heparin Anti-Xa Level POC ABG pH POC ABG pCO2 30.7 L POC ABG pO2 128 H Sodium Potassium Chloride Carbon Dioxide BUN Creatinine Glucose POC Glucose 131 H Calcium Phosphorus Magnesium AST C-Reactive Protein Total Protein Albumin Lipase Urine WBC (Auto) Urine Chloride Urine Total Protein 10/16/16 10/16/16 10/16/16 06:32 09:27 09:35 WBC RBC Hgb Hct MCV RDW Plt Count Lymph % (Auto) [place] % (Auto) [place] # Seg Neutrophils % Seg Neuts % (Manual) Lymphocytes % (Manual) Monocytes % (Manual) Seg Neutrophils # Seg Neutrophils # Man Lymphocytes # (Manual) Monocytes # (Manual) Eosinophils # (Manual) Basophils # (Manual) PT INR APTT Heparin Anti-Xa Level POC ABG pH POC ABG pCO2 32.8 L POC ABG pO2 137 H Sodium Potassium Chloride Carbon Dioxide BUN Creatinine Glucose POC Glucose 121 H 150 H Calcium Phosphorus Magnesium AST C-Reactive Protein Total Protein Albumin Lipase Urine WBC (Auto) Urine Chloride Urine Total Protein 10/16/16 10/16/16 10/16/16 10:47 13:27 14:24 WBC RBC Hgb Hct MCV RDW Plt Count Lymph % (Auto) [place] % (Auto) [place] # Seg Neutrophils % Seg Neuts % (Manual) Lymphocytes % (Manual) Monocytes % (Manual) Seg Neutrophils # Seg Neutrophils # Man Lymphocytes # (Manual) Monocytes # (Manual) Eosinophils # (Manual) Basophils # (Manual) PT INR APTT Heparin Anti-Xa Level POC ABG pH POC ABG pCO2 POC ABG pO2 Sodium Potassium Chloride Carbon Dioxide BUN Creatinine Glucose POC Glucose 184 H 171 H 174 H Calcium Phosphorus Magnesium AST C-Reactive Protein Total Protein Albumin Lipase Urine WBC (Auto) Urine Chloride Urine Total Protein 10/16/16 10/16/16 10/16/16 15:48 16:26 18:17 WBC RBC Hgb Hct MCV RDW Plt Count Lymph % (Auto) [place] % (Auto) [place] # Seg Neutrophils % Seg Neuts % (Manual) Lymphocytes % (Manual) Monocytes % (Manual) Seg Neutrophils # Seg Neutrophils # Man Lymphocytes # (Manual) Monocytes # (Manual) Eosinophils # (Manual) Basophils # (Manual) PT INR APTT Heparin Anti-Xa Level POC ABG pH POC ABG pCO2 POC ABG pO2 Sodium Potassium Chloride Carbon Dioxide BUN Creatinine Glucose POC Glucose 205 H 204 H 234 H Calcium Phosphorus Magnesium AST C-Reactive Protein Total Protein Albumin Lipase Urine WBC (Auto) Urine Chloride Urine Total Protein 10/16/16 10/16/16 10/16/16 19:40 20:33 21:36 WBC RBC Hgb Hct MCV RDW Plt Count Lymph % (Auto) [place] % (Auto) [place] # Seg Neutrophils % Seg Neuts % (Manual) Lymphocytes % (Manual) Monocytes % (Manual) Seg Neutrophils # Seg Neutrophils # Man Lymphocytes # (Manual) Monocytes # (Manual) Eosinophils # (Manual) Basophils # (Manual) PT INR APTT Heparin Anti-Xa Level POC ABG pH POC ABG pCO2 POC ABG pO2 Sodium Potassium Chloride Carbon Dioxide BUN Creatinine Glucose POC Glucose 167 H 153 H 158 H Calcium Phosphorus Magnesium AST C-Reactive Protein Total Protein Albumin Lipase Urine WBC (Auto) Urine Chloride Urine Total Protein 10/16/16 10/16/16 10/17/16 22:54 23:48 00:47 WBC RBC Hgb Hct MCV RDW Plt Count Lymph % (Auto) [place] % (Auto) [place] # Seg Neutrophils % Seg Neuts % (Manual) Lymphocytes % (Manual) Monocytes % (Manual) Seg Neutrophils # Seg Neutrophils # Man Lymphocytes # (Manual) Monocytes # (Manual) Eosinophils # (Manual) Basophils # (Manual) PT INR APTT Heparin Anti-Xa Level POC ABG pH POC ABG pCO2 POC ABG pO2 Sodium Potassium Chloride Carbon Dioxide BUN Creatinine Glucose POC Glucose 180 H 207 H 196 H Calcium Phosphorus Magnesium AST C-Reactive Protein Total Protein Albumin Lipase Urine WBC (Auto) Urine Chloride Urine Total Protein 10/17/16 10/17/16 10/17/16 01:57 02:49 03:50 WBC RBC Hgb Hct MCV RDW Plt Count Lymph % (Auto) [place] % (Auto) [place] # Seg Neutrophils % Seg Neuts % (Manual) Lymphocytes % (Manual) Monocytes % (Manual) Seg Neutrophils # Seg Neutrophils # Man Lymphocytes # (Manual) Monocytes # (Manual) Eosinophils # (Manual) Basophils # (Manual) PT INR APTT Heparin Anti-Xa Level POC ABG pH POC ABG pCO2 POC ABG pO2 Sodium Potassium Chloride Carbon Dioxide BUN Creatinine Glucose POC Glucose 180 H 151 H 106 H Calcium Phosphorus Magnesium AST C-Reactive Protein Total Protein Albumin Lipase Urine WBC (Auto) Urine Chloride Urine Total Protein 10/17/16 10/17/16 10/17/16 04:59 06:03 06:35 WBC RBC Hgb Hct MCV RDW Plt Count Lymph % (Auto) [place] % (Auto) [place] # Seg Neutrophils % Seg Neuts % (Manual) Lymphocytes % (Manual) Monocytes % (Manual) Seg Neutrophils # Seg Neutrophils # Man Lymphocytes # (Manual) Monocytes # (Manual) Eosinophils # (Manual) Basophils # (Manual) PT INR APTT Heparin Anti-Xa Level POC ABG pH 7.453 H POC ABG pCO2 30.1 L POC ABG pO2 111 H Sodium Potassium Chloride Carbon Dioxide BUN Creatinine Glucose POC Glucose 145 H 157 H Calcium Phosphorus Magnesium AST C-Reactive Protein Total Protein Albumin Lipase Urine WBC (Auto) Urine Chloride Urine Total Protein 10/17/16 10/17/16 10/17/16 07:08 07:11 08:01 WBC RBC Hgb Hct MCV RDW Plt Count Lymph % (Auto) [place] % (Auto) [place] # Seg Neutrophils % Seg Neuts % (Manual) Lymphocytes % (Manual) Monocytes % (Manual) Seg Neutrophils # Seg Neutrophils # Man Lymphocytes # (Manual) Monocytes # (Manual) Eosinophils # (Manual) Basophils # (Manual) PT INR APTT Heparin Anti-Xa Level POC ABG pH POC ABG pCO2 POC ABG pO2 Sodium 147 H Potassium Chloride 113.8 H Carbon Dioxide 19 L BUN Creatinine Glucose 136 H POC Glucose 136 H 152 H Calcium 7.7 L Phosphorus Magnesium AST C-Reactive Protein Total Protein Albumin Lipase Urine WBC (Auto) Urine Chloride Urine Total Protein 10/17/16 10/17/16 10/17/16 08:23 09:17 09:53 WBC 18.1 H RBC 3.01 L Hgb 9.7 L Hct 29.4 L MCV 98 H RDW Plt Count 116 L Lymph % (Auto) [place] % (Auto) [place] # Seg Neutrophils % Seg Neuts % (Manual) 77.0 H Lymphocytes % (Manual) 4.0 L Monocytes % (Manual) 12.0 H Seg Neutrophils # Seg Neutrophils # Man 13.9 H Lymphocytes # (Manual) 0.7 L Monocytes # (Manual) 2.2 H Eosinophils # (Manual) Basophils # (Manual) PT INR APTT Heparin Anti-Xa Level POC ABG pH POC ABG pCO2 POC ABG pO2 Sodium Potassium Chloride Carbon Dioxide BUN Creatinine Glucose POC Glucose 148 H 137 H Calcium Phosphorus Magnesium AST C-Reactive Protein Total Protein Albumin Lipase Urine WBC (Auto) Urine Chloride Urine Total Protein 10/17/16 10/17/16 10/17/16 11:43 16:07 17:42 WBC RBC Hgb Hct MCV RDW Plt Count Lymph % (Auto) [place] % (Auto) [place] # Seg Neutrophils % Seg Neuts % (Manual) Lymphocytes % (Manual) Monocytes % (Manual) Seg Neutrophils # Seg Neutrophils # Man Lymphocytes # (Manual) Monocytes # (Manual) Eosinophils # (Manual) Basophils # (Manual) PT 16.4 H INR 1.33 H APTT 38.8 H Heparin Anti-Xa Level POC ABG pH POC ABG pCO2 POC ABG pO2 Sodium Potassium Chloride Carbon Dioxide BUN Creatinine Glucose POC Glucose 179 H 153 H Calcium Phosphorus Magnesium AST C-Reactive Protein Total Protein Albumin Lipase Urine WBC (Auto) Urine Chloride Urine Total Protein 10/17/16 10/18/16 10/18/16 22:54 04:37 05:39 WBC RBC Hgb Hct MCV RDW Plt Count Lymph % (Auto) [place] % (Auto) [place] # Seg Neutrophils % Seg Neuts % (Manual) Lymphocytes % (Manual) Monocytes % (Manual) Seg Neutrophils # Seg Neutrophils # Man Lymphocytes # (Manual) Monocytes # (Manual) Eosinophils # (Manual) Basophils # (Manual) PT INR APTT Heparin Anti-Xa Level 0.27 L POC ABG pH 7.454 H POC ABG pCO2 30.8 L POC ABG pO2 115 H Sodium Potassium Chloride Carbon Dioxide BUN Creatinine Glucose POC Glucose 69 L Calcium Phosphorus Magnesium AST C-Reactive Protein Total Protein Albumin Lipase Urine WBC (Auto) Urine Chloride Urine Total Protein 10/18/16 10/18/16 10/18/16 06:46 06:46 06:46 WBC 20.5 H RBC 2.62 L Hgb 8.4 L Hct 26.0 L MCV 100 H RDW Plt Count Lymph % (Auto) [place] % (Auto) [place] # Seg Neutrophils % Seg Neuts % (Manual) 75.0 H Lymphocytes % (Manual) 9.0 L Monocytes % (Manual) 14.0 H Seg Neutrophils # Seg Neutrophils # Man 15.4 H Lymphocytes # (Manual) Monocytes # (Manual) 2.9 H Eosinophils # (Manual) Basophils # (Manual) PT INR APTT Heparin Anti-Xa Level POC ABG pH POC ABG pCO2 POC ABG pO2 Sodium Potassium Chloride 110.6 H Carbon Dioxide BUN Creatinine 1.3 H Glucose 153 H POC Glucose Calcium 8.0 L Phosphorus Magnesium 1.6 L AST C-Reactive Protein Total Protein Albumin Lipase Urine WBC (Auto) Urine Chloride Urine Total Protein 10/18/16 10/18/16 10/18/16 07:30 11:37 17:51 WBC RBC Hgb Hct MCV RDW Plt Count Lymph % (Auto) [place] % (Auto) [place] # Seg Neutrophils % Seg Neuts % (Manual) Lymphocytes % (Manual) Monocytes % (Manual) Seg Neutrophils # Seg Neutrophils # Man Lymphocytes # (Manual) Monocytes # (Manual) Eosinophils # (Manual) Basophils # (Manual) PT INR APTT Heparin Anti-Xa Level POC ABG pH POC ABG pCO2 POC ABG pO2 Sodium Potassium Chloride Carbon Dioxide BUN Creatinine Glucose POC Glucose 162 H 156 H 164 H Calcium Phosphorus Magnesium AST C-Reactive Protein Total Protein Albumin Lipase Urine WBC (Auto) Urine Chloride Urine Total Protein 10/18/16 10/19/16 10/19/16 23:44 03:59 05:13 WBC 18.2 H RBC 2.76 L Hgb 9.0 L Hct 27.7 L MCV 100 H RDW Plt Count Lymph % (Auto) [place] % (Auto) [place] # Seg Neutrophils % Seg Neuts % (Manual) 76.0 H Lymphocytes % (Manual) 10.0 L Monocytes % (Manual) Seg Neutrophils # Seg Neutrophils # Man 13.8 H Lymphocytes # (Manual) Monocytes # (Manual) Eosinophils # (Manual) Basophils # (Manual) PT INR APTT Heparin Anti-Xa Level POC ABG pH POC ABG pCO2 32.2 L POC ABG pO2 128 H Sodium Potassium Chloride Carbon Dioxide BUN Creatinine Glucose POC Glucose 278 H Calcium Phosphorus Magnesium AST C-Reactive Protein Total Protein Albumin Lipase Urine WBC (Auto) Urine Chloride Urine Total Protein 10/19/16 10/19/16 10/19/16 06:01 06:30 12:20 WBC RBC Hgb Hct MCV RDW Plt Count Lymph % (Auto) [place] % (Auto) [place] # Seg Neutrophils % Seg Neuts % (Manual) Lymphocytes % (Manual) Monocytes % (Manual) Seg Neutrophils # Seg Neutrophils # Man Lymphocytes # (Manual) Monocytes # (Manual) Eosinophils # (Manual) Basophils # (Manual) PT INR APTT Heparin Anti-Xa Level POC ABG pH POC ABG pCO2 POC ABG pO2 Sodium Potassium Chloride Carbon Dioxide 18 L BUN Creatinine 1.3 H Glucose 262 H POC Glucose 261 H 349 H Calcium 7.7 L Phosphorus 4.8 H D Magnesium AST C-Reactive Protein Total Protein Albumin Lipase Urine WBC (Auto) Urine Chloride Urine Total Protein 10/19/16 10/20/16 10/20/16 16:48 00:17 05:20 WBC 22.5 H RBC 2.80 L Hgb 8.9 L Hct 28.3 L MCV 101 H RDW Plt Count Lymph % (Auto) [place] % (Auto) [place] # Seg Neutrophils % Seg Neuts % (Manual) Lymphocytes % (Manual) 10.0 L Monocytes % (Manual) Seg Neutrophils # Seg Neutrophils # Man 13.3 H Lymphocytes # (Manual) Monocytes # (Manual) 1.1 H Eosinophils # (Manual) 0.7 H Basophils # (Manual) PT INR APTT Heparin Anti-Xa Level POC ABG pH POC ABG pCO2 POC ABG pO2 Sodium Potassium Chloride Carbon Dioxide BUN Creatinine Glucose POC Glucose 248 H 346 H Calcium Phosphorus Magnesium AST C-Reactive Protein Total Protein Albumin Lipase Urine WBC (Auto) Urine Chloride Urine Total Protein 10/20/16 10/20/16 10/20/16 05:20 05:20 06:05 WBC RBC Hgb Hct MCV RDW Plt Count Lymph % (Auto) [place] % (Auto) [place] # Seg Neutrophils % Seg Neuts % (Manual) Lymphocytes % (Manual) Monocytes % (Manual) Seg Neutrophils # Seg Neutrophils # Man Lymphocytes # (Manual) Monocytes # (Manual) Eosinophils # (Manual) Basophils # (Manual) PT INR APTT Heparin Anti-Xa Level 0.20 L POC ABG pH POC ABG pCO2 POC ABG pO2 Sodium Potassium Chloride Carbon Dioxide BUN 20 H Creatinine Glucose 374 H POC Glucose 337 H Calcium 8.3 L Phosphorus Magnesium AST C-Reactive Protein Total Protein Albumin Lipase Urine WBC (Auto) Urine Chloride Urine Total Protein 10/20/16 10/20/16 10/20/16 11:49 13:59 17:56 WBC RBC Hgb Hct MCV RDW Plt Count Lymph % (Auto) [place] % (Auto) [place] # Seg Neutrophils % Seg Neuts % (Manual) Lymphocytes % (Manual) Monocytes % (Manual) Seg Neutrophils # Seg Neutrophils # Man Lymphocytes # (Manual) Monocytes # (Manual) Eosinophils # (Manual) Basophils # (Manual) PT INR APTT Heparin Anti-Xa Level 2.00 H POC ABG pH POC ABG pCO2 POC ABG pO2 Sodium Potassium Chloride Carbon Dioxide BUN Creatinine Glucose POC Glucose 305 H 362 H Calcium Phosphorus Magnesium AST C-Reactive Protein Total Protein Albumin Lipase Urine WBC (Auto) Urine Chloride Urine Total Protein 10/20/16 10/21/16 10/21/16 23:52 05:00 05:49 WBC 22.9 H RBC 2.49 L Hgb 7.7 L Hct 25.6 L MCV 103 H RDW Plt Count Lymph % (Auto) [place] % (Auto) [place] # Seg Neutrophils % Seg Neuts % (Manual) 94.0 H Lymphocytes % (Manual) 1.0 L Monocytes % (Manual) Seg Neutrophils # Seg Neutrophils # Man 21.5 H Lymphocytes # (Manual) 0.2 L Monocytes # (Manual) 1.1 H Eosinophils # (Manual) Basophils # (Manual) PT INR APTT Heparin Anti-Xa Level POC ABG pH POC ABG pCO2 POC ABG pO2 Sodium Potassium Chloride Carbon Dioxide BUN Creatinine Glucose POC Glucose 252 H 180 H Calcium Phosphorus Magnesium AST C-Reactive Protein Total Protein Albumin Lipase Urine WBC (Auto) Urine Chloride Urine Total Protein 10/21/16 10/21/16 10/21/16 11:47 11:49 14:10 WBC RBC Hgb Hct MCV RDW Plt Count Lymph % (Auto) [place] % (Auto) [place] # Seg Neutrophils % Seg Neuts % (Manual) Lymphocytes % (Manual) Monocytes % (Manual) Seg Neutrophils # Seg Neutrophils # Man Lymphocytes # (Manual) Monocytes # (Manual) Eosinophils # (Manual) Basophils # (Manual) PT INR APTT Heparin Anti-Xa Level POC ABG pH POC ABG pCO2 POC ABG pO2 Sodium Potassium Chloride Carbon Dioxide BUN Creatinine Glucose POC Glucose 50 L 56 L 140 H Calcium Phosphorus Magnesium AST C-Reactive Protein Total Protein Albumin Lipase Urine WBC (Auto) Urine Chloride Urine Total Protein 10/21/16 10/21/16 10/22/16 18:24 Unknown 00:07 WBC RBC Hgb Hct MCV RDW Plt Count Lymph % (Auto) [place] % (Auto) [place] # Seg Neutrophils % Seg Neuts % (Manual) Lymphocytes % (Manual) Monocytes % (Manual) Seg Neutrophils # Seg Neutrophils # Man Lymphocytes # (Manual) Monocytes # (Manual) Eosinophils # (Manual) Basophils # (Manual) PT INR APTT Heparin Anti-Xa Level POC ABG pH POC ABG pCO2 POC ABG pO2 Sodium 150 H Potassium 3.1 L Chloride 112.4 H Carbon Dioxide BUN 25 H Creatinine 1.4 H Glucose POC Glucose 175 H 218 H Calcium 8.0 L Phosphorus Magnesium AST C-Reactive Protein Total Protein Albumin Lipase Urine WBC (Auto) Urine Chloride Urine Total Protein 10/22/16 10/22/16 04:20 04:20 WBC 20.8 H RBC 2.37 L Hgb 7.5 L Hct 23.9 L MCV 101 H RDW Plt Count Lymph % (Auto) [place] % (Auto) [place] # Seg Neutrophils % Seg Neuts % (Manual) 89.0 H Lymphocytes % (Manual) 7.0 L Monocytes % (Manual) Seg Neutrophils # Seg Neutrophils # Man 18.5 H Lymphocytes # (Manual) Monocytes # (Manual) Eosinophils # (Manual) Basophils # (Manual) 0.2 H PT INR APTT Heparin Anti-Xa Level POC ABG pH POC ABG pCO2 POC ABG pO2 Sodium 148 H Potassium 2.9 L* Chloride 109.4 H Carbon Dioxide BUN 26 H Creatinine Glucose 140 H POC Glucose Calcium 7.5 L Phosphorus Magnesium AST C-Reactive Protein Total Protein Albumin Lipase Urine WBC (Auto) Urine Chloride Urine Total Protein Allied health notes reviewed: RT
[2016-10-22] MEDS ORDERED: NACL 0.9% 250ML 250 ML ONE (10:29)
--- NOTE | 2016-10-22 11:02 | Electroencephalogram Report ---
Electroencephalogram EEG Date of exam: 10/19/16 History: 66 YO F a/w AMS. Impression: Abnormal awake and drowsy 21 minute routine EEG. There are findings to suggest mild-mod nonspecific cerebral dysfunction possibly maximal in the left temporal region however this ? focal slowing may be artifactual as it is inconsistent. There are no findings to suggest cortical irritability, epileptiform discharges or electrographic seizures. Description: There is brief waking background showing an inappropriate organization with poorly-defined anterior posterior voltage and frequency gradients. Posteriorly, there is poorly-developed mixed theta and delta rhythm which is bilaterally reactive. There is no variability. There possible asymmetry evident with occasional superimposed delta frequency slowing in the left temporal region but this is not consistent and may be artifact. There is no sleep background Throughout, the recording there are no epileptiform abnormalities or electrographic seizures. Interpretation: This is a digitally acquired 21-channel electroencephalogram. Both bipolar and referential montages were used in interpretation. Electrodes were placed in accordance with the International 10-20 system.
[2016-10-22] MEDS: DIFLUCAN 200 MG/100 ML BAG IV SCH (11:12)
[2016-10-22] MEDS: VANCOMYCIN VIAL 1,250 MG in NACL 0.9% 250ML 250 ML IV SCH (11:27)
[2016-10-22] MEDS: PEPCID PO SCH ×2 (12:07→22:09)
[2016-10-22] MEDS: fentaNYL DRIP Premix 2,000 MCG/100 ML BAG IV SCH (12:21)
--- NOTE | 2016-10-22 15:23 | Progress Note ---
Assessment and Plan This patient is presently in the intensive care unit on mechanical ventilation. She has a new onset of altered mental status. Neurology has been consulted and is following. She was evaluated earlier today. She tachycardic, with a resting heart rate of 150 bpm. She has an ischemic right lower extremity. The first and second toes showing signs of early tissue necrosis. She has a right heel wound. Revascularization has significant risks given her overall status. Continued to optimize medically. As her condition improves, we could consider revascularization at that point. She would likely require fasciotomies following any sort of revascularization. If her leg deteriorates further ( becoming nonviable), she may require an amputation. - Patient Problems (1) Ischemia of right lower extremity Current Visit: Yes Status: Acute (2) DKA (diabetic ketoacidoses) Current Visit: Yes Status: Acute Qualifiers: Diabetes mellitus type: D Diabetes mellitus complication detail: D (3) Acute on chronic renal failure Current Visit: Yes Status: Acute (4) Altered mental status Current Visit: Yes Status: Acute Qualifiers: Altered mental status type: A Coma depth: C Coma timing: C (5) Diabetes Current Visit: No Status: Chronic Qualifiers: Diabetes mellitus type: D Diabetes mellitus complication status: D Diabetes mellitus complication detail: D Diabetic retinopathy severity: D Proliferative retinopathy type: P Diabetes mellitus macular edema: D 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 She will turn her head to verbal stimulus. She did not appear to follow any commands. Objective - Constitutional Vitals: Vital Signs - 12hr 10/22/16 10/22/16 10/22/16 03:30 04:00 04:30 Temperature Pulse Rate 94 H 90 90 Pulse Rate [ 93 H Apical] Pulse Rate [ 93 H From Monitor] Respiratory 23 20 20 Rate Blood Pressure 129/57 129/58 132/62 O2 Sat by Pulse 98 98 100 Oximetry 10/22/16 10/22/16 10/22/16 04:45 05:00 05:30 Temperature 96.7 F L Pulse Rate 91 H 87 Pulse Rate [ Apical] Pulse Rate [ From Monitor] Respiratory 20 20 Rate Blood Pressure 140/69 141/65 O2 Sat by Pulse 100 100 Oximetry 10/22/16 10/22/16 10/22/16 05:56 06:01 06:31 Temperature Pulse Rate 150 H 145 H 148 H Pulse Rate [ Apical] Pulse Rate [ From Monitor] Respiratory 15 19 Rate Blood Pressure 138/78 171/98 O2 Sat by Pulse 100 100 Oximetry 10/22/16 10/22/16 10/22/16 07:01 07:31 08:00 Temperature 103.1 F H Pulse Rate 154 H 155 H 157 H Pulse Rate [ Apical] Pulse Rate [ From Monitor] Respiratory 28 H 21 20 Rate Blood Pressure 168/97 168/97 150/89 O2 Sat by Pulse 100 99 97 Oximetry 10/22/16 10/22/16 10/22/16 08:31 09:00 09:30 Temperature Pulse Rate 156 H 156 H 152 H Pulse Rate [ Apical] Pulse Rate [ From Monitor] Respiratory 19 36 H 21 Rate Blood Pressure 133/78 131/71 122/71 O2 Sat by Pulse 100 99 Oximetry 10/22/16 10/22/16 10/22/16 10:00 10:30 11:00 Temperature Pulse Rate 151 H 149 H 149 H Pulse Rate [ Apical] Pulse Rate [ From Monitor] Respiratory 20 17 19 Rate Blood Pressure 119/73 130/79 131/87 O2 Sat by Pulse 99 100 98 Oximetry 10/22/16 10/22/16 10/22/16 11:20 11:21 11:30 Temperature Pulse Rate 152 H 152 H 143 H Pulse Rate [ Apical] Pulse Rate [ From Monitor] Respiratory 32 H Rate Blood Pressure 131/78 131/87 122/87 O2 Sat by Pulse 100 Oximetry 10/22/16 10/22/16 10/22/16 12:00 12:30 13:00 Temperature 98.5 F Pulse Rate 149 H 152 H 155 H Pulse Rate [ Apical] Pulse Rate [ From Monitor] Respiratory 19 22 19 Rate Blood Pressure 129/79 132/83 127/79 O2 Sat by Pulse 100 100 100 Oximetry 10/22/16 10/22/16 10/22/16 13:30 14:00 14:05 Temperature Pulse Rate 153 H 153 H 151 H Pulse Rate [ Apical] Pulse Rate [ From Monitor] Respiratory 18 20 Rate Blood Pressure 116/79 117/76 117/76 O2 Sat by Pulse 99 99 100 Oximetry General appearance: Present: no acute distress - EENT ENT: hearing intact - Respiratory Respiratory effort: other (on mechanical ventilation) Extremity abnormal: other (she has nonpalpable pedal pulses on the right. Her right foot is cool. Her first and second toes are cyanotic. She has a darkened right heel. She has nonpalpable pedal pulses on the left but her foot is warm.) - Neurologic Neurologic: other (no observed movement to her right lower leg) - Psychiatric Psychiatric: no appropriate mood/affect, no intact judgment & insight (she does not follow commands), no cooperative - Labs CBC & Chem 7: 10/22/16 04:20 10/22/16 04:20 Labs: Abnormal lab results 10/21/16 10/21/16 10/22/16 Range/Units 14:10 18:24 00:07 WBC (4.5-11.0) K/mm3 RBC (3.65-5.03) M/mm3 Hgb (10.1-14.3) gm/dl Hct (30.3-42.9) % MCV (79-97) fl Seg Neuts % (Manual) (40.0-70.0) % Lymphocytes % (Manual) (13.4-35.0) % Seg Neutrophils # Man (1.8-7.7) K/mm3 Basophils # (Manual) (0.0-0.1) K/mm3 Sodium (137-145) mmol/L Potassium (3.6-5.0) mmol/L Chloride (98-107) mmol/L BUN (7-17) mg/dL Glucose (65-100) mg/dL POC Glucose 140 H 175 H 218 H (70-105) Calcium (8.4-10.2) mg/dL Vitamin B12 (211-911) pg/mL TSH (0.270-4.200) mlU/mL 10/22/16 10/22/16 10/22/16 Range/Units 04:20 04:20 10:25 WBC 20.8 H (4.5-11.0) K/mm3 RBC 2.37 L (3.65-5.03) M/mm3 Hgb 7.5 L (10.1-14.3) gm/dl Hct 23.9 L (30.3-42.9) % MCV 101 H (79-97) fl Seg Neuts % (Manual) 89.0 H (40.0-70.0) % Lymphocytes % (Manual) 7.0 L (13.4-35.0) % Seg Neutrophils # Man 18.5 H (1.8-7.7) K/mm3 Basophils # (Manual) 0.2 H (0.0-0.1) K/mm3 Sodium 148 H (137-145) mmol/L Potassium 2.9 L* (3.6-5.0) mmol/L Chloride 109.4 H (98-107) mmol/L BUN 26 H (7-17) mg/dL Glucose 140 H (65-100) mg/dL POC Glucose (70-105) Calcium 7.5 L (8.4-10.2) mg/dL Vitamin B12 976.8 H (211-911) pg/mL TSH (0.270-4.200) mlU/mL 10/22/16 Range/Units 10:25 WBC (4.5-11.0) K/mm3 RBC (3.65-5.03) M/mm3 Hgb (10.1-14.3) gm/dl Hct (30.3-42.9) % MCV (79-97) fl Seg Neuts % (Manual) (40.0-70.0) % Lymphocytes % (Manual) (13.4-35.0) % Seg Neutrophils # Man (1.8-7.7) K/mm3 Basophils # (Manual) (0.0-0.1) K/mm3 Sodium (137-145) mmol/L Potassium (3.6-5.0) mmol/L Chloride (98-107) mmol/L BUN (7-17) mg/dL Glucose (65-100) mg/dL POC Glucose (70-105) Calcium (8.4-10.2) mg/dL Vitamin B12 (211-911) pg/mL TSH 0.143 L (0.270-4.200) mlU/mL
--- NOTE | 2016-10-22 17:09 | Progress Note ---
Assessment and Plan Assessment and plan: 66-year-old woman who presented with lethargy and altered mental status she deteriorated and was intubated and in emergency room, she was managed for DKA and she also developed sepsis due to UTI and right lower extremity ischemia 1. Acute respiratory failure with hypercapnia Continue ventilator 2. Diabetes DKA has now resolved, continue SubQ insulin 3. Sepsis Suspected due to UTI, urine has only grown Paula, sputum cultures grew group B strep, continue broad-spectrum antibiotics, infectious disease input appreciated 4. 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 Hypokalemia replete IV Given her multiple medical illnesses, her prognosis is quite poor Critical care time 32 minutes History Interval history: Has been more arousable on sedation holidays, still on vent, not obeying commands Hospitalist Physical - Physical exam Narrative exam: General: Appears ill, intubated sedated HEENT: MMM, EOMI cardiac: S1-S2 heard lungs: Ventilated breath sounds abdomen: soft, nontender, nondistended bowel sounds positive extremities: Right lower extremity has no distal pulses, cold to touch half way up the calf, toes are blue Skin: no rash or lesion Neuro: Intubated sedated, but responds to painful stimuli and opens eyes to voice - Constitutional Vitals: Temp Pulse Resp BP Pulse Ox 99.0 F 151 H 20 117/76 100 10/22/16 16:00 10/22/16 14:05 10/22/16 14:00 10/22/16 14:05 10/22/16 14:05 General appearance: Present: no acute distress Results - Labs CBC & Chem 7: 10/23/16 Unknown 10/23/16 Unknown Labs: Laboratory Last Values WBC 20.8 K/mm3 (4.5-11.0) H 10/22/16 04:20 RBC 2.37 M/mm3 (3.65-5.03) L 10/22/16 04:20 Hgb 7.5 gm/dl (10.1-14.3) L 10/22/16 04:20 Hct 23.9 % (30.3-42.9) L 10/22/16 04:20 MCV 101 fl (79-97) H 10/22/16 04:20 MCH 32 pg (28-32) 10/22/16 04:20 MCHC 32 % (30-34) 10/22/16 04:20 RDW 13.6 % (13.2-15.2) 10/22/16 04:20 Plt Count 360 K/mm3 (140-440) 10/22/16 04:20 Lymph % (Auto) Plant Mechanic 10/21/16 05:00 [place] % (Auto) Plant Mechanic 10/21/16 05:00 Eos % (Auto) Plant Mechanic 10/21/16 05:00 Baso % (Auto) Plant Mechanic 10/21/16 05:00 Lymph # Plant Mechanic 10/21/16 05:00 [place] # Plant Mechanic 10/21/16 05:00 Eos # Plant Mechanic 10/21/16 05:00 Baso # Plant Mechanic 10/21/16 05:00 Add Manual Diff Complete 10/22/16 04:20 Total Counted 100 10/22/16 04:20 Seg Neutrophils % Plant Mechanic 10/21/16 05:00 Seg Neuts % (Manual) 89.0 % (40.0-70.0) H 10/22/16 04:20 Band Neutrophils % 2.0 % 10/22/16 04:20 Lymphocytes % (Manual) 7.0 % (13.4-35.0) L 10/22/16 04:20 Reactive Lymphs % (Man) 0 % 10/22/16 04:20 Monocytes % (Manual) 1.0 % (0.0-7.3) 10/22/16 04:20 Eosinophils % (Manual) 0 % (0.0-4.3) 10/22/16 04:20 Basophils % (Manual) 1.0 % (0.0-1.8) 10/22/16 04:20 Metamyelocytes % 0 % 10/22/16 04:20 Myelocytes % 0 % 10/22/16 04:20 Promyelocytes % 0 % 10/22/16 04:20 Blast Cells % 0 % 10/22/16 04:20 Nucleated RBC % Not Reportable 10/22/16 04:20 Seg Neutrophils # Plant Mechanic 10/21/16 05:00 Seg Neutrophils # Man 18.5 K/mm3 (1.8-7.7) H 10/22/16 04:20 Band Neutrophils # 0.4 K/mm3 10/22/16 04:20 Lymphocytes # (Manual) 1.5 K/mm3 (1.2-5.4) 10/22/16 04:20 Abs React Lymphs (Man) 0.0 K/mm3 10/22/16 04:20 Monocytes # (Manual) 0.2 K/mm3 (0.0-0.8) 10/22/16 04:20 Eosinophils # (Manual) 0.0 K/mm3 (0.0-0.4) 10/22/16 04:20 Basophils # (Manual) 0.2 K/mm3 (0.0-0.1) H 10/22/16 04:20 Metamyelocytes # 0.0 K/mm3 10/22/16 04:20 Myelocytes # 0.0 K/mm3 10/22/16 04:20 Promyelocytes # 0.0 K/mm3 10/22/16 04:20 Blast Cells # 0.0 K/mm3 10/22/16 04:20 WBC Morphology Not Reportable 10/22/16 04:20 Hypersegmented Neuts Not Reportable 10/22/16 04:20 Hyposegmented Neuts Not Reportable 10/22/16 04:20 Hypogranular Neuts Not Reportable 10/22/16 04:20 Hypersegmented Polys TNR 10/17/16 07:08 Smudge Cells Few 10/22/16 04:20 Toxic Granulation Not Reportable 10/22/16 04:20 Toxic Vacuolation Not Reportable 10/22/16 04:20 Dohle Bodies Not Reportable 10/22/16 04:20 Pelger-Huet Anomaly Not Reportable 10/22/16 04:20 Alka Rods Not Reportable 10/22/16 04:20 Platelet Estimate Appears normal 10/22/16 04:20 Clumped Platelets Not Reportable 10/22/16 04:20 Plt Clumps, EDTA Not Reportable 10/22/16 04:20 Large Platelets Not Reportable 10/22/16 04:20 Giant Platelets Not Reportable 10/22/16 04:20 Platelet Satelliting Not Reportable 10/22/16 04:20 Plt Morphology Comment Not Reportable 10/22/16 04:20 RBC Morphology Not Reportable 10/22/16 04:20 Dimorphic RBCs Not Reportable 10/22/16 04:20 Polychromasia Not Reportable 10/22/16 04:20 Hypochromasia 1+ 10/22/16 04:20 Poikilocytosis Not Reportable 10/22/16 04:20 Basophilic Stippling TNR 10/17/16 07:08 Anisocytosis 1+ 10/22/16 04:20 Microcytosis Not Reportable 10/22/16 04:20 Macrocytosis Not Reportable 10/22/16 04:20 Spherocytes Not Reportable 10/22/16 04:20 Pappenheimer Bodies Not Reportable 10/22/16 04:20 Sickle Cells Not Reportable 10/22/16 04:20 Target Cells Few 10/22/16 04:20 Tear Drop Cells Not Reportable 10/22/16 04:20 Ovalocytes Not Reportable 10/22/16 04:20 Stomatocytes Rare 10/22/16 04:20 Helmet Cells Not Reportable 10/22/16 04:20 [place] Bodies Not Reportable 10/22/16 04:20 [place] Rings Not Reportable 10/22/16 04:20 Jeannette Cells Not Reportable 10/22/16 04:20 Bite Cells Not Reportable 10/22/16 04:20 Crenated Cell Not Reportable 10/22/16 04:20 Elliptocytes Not Reportable 10/22/16 04:20 Acanthocytes (Spur) Not Reportable 10/22/16 04:20 Rouleaux Not Reportable 10/22/16 04:20 Hemoglobin C Crystals Not Reportable 10/22/16 04:20 Schistocytes Not Reportable 10/22/16 04:20 Malaria parasites Not Reportable 10/22/16 04:20 David Bodies Not Reportable 10/22/16 04:20 Hem Pathologist Commnt No 10/22/16 04:20 PT 16.4 Sec. (12.2-14.9) H 10/17/16 16:07 INR 1.33 (0.87-1.13) H 10/17/16 16:07 APTT 38.8 Sec. (24.2-36.6) H 10/17/16 16:07 Heparin Anti-Xa Level 0.33 U.I./ml (0.3-0.7) 10/21/16 22:30 POC ABG pH 7.382 (7.35-7.45) 10/19/16 03:59 POC ABG pCO2 32.2 (35-45) L 10/19/16 03:59 POC ABG pO2 128 (80-105) H 10/19/16 03:59 POC ABG HCO3 19.1 10/19/16 03:59 POC ABG Total CO2 20 10/19/16 03:59 POC ABG O2 Sat 99 10/19/16 03:59 POC ABG Base Excess -6 10/19/16 03:59 VBG pH 7.020 (7.320-7.420) L* 10/13/16 04:22 FiO2 30 % 10/19/16 03:59 Sodium 148 mmol/L (137-145) H 10/22/16 04:20 Potassium 2.9 mmol/L (3.6-5.0) L* 10/22/16 04:20 Chloride 109.4 mmol/L (98-107) H 10/22/16 04:20 Carbon Dioxide 22 mmol/L (22-30) 10/22/16 04:20 Anion Gap 20 mmol/L 10/22/16 04:20 BUN 26 mg/dL (7-17) H 10/22/16 04:20 Creatinine 1.1 mg/dL (0.7-1.2) 10/22/16 04:20 Estimated GFR > 60 ml/min 10/22/16 04:20 BUN/Creatinine Ratio 23.63 % 10/22/16 04:20 Glucose 140 mg/dL (65-100) H 10/22/16 04:20 POC Glucose 103 (70-105) 10/22/16 12:04 Osmolality 332 Mosm/kg 10/14/16 07:03 Lactic Acid 1.8 mmol/L (0.7-2.0) 10/14/16 07:03 Calcium 7.5 mg/dL (8.4-10.2) L 10/22/16 04:20 Phosphorus 2.7 mg/dL (2.5-4.5) D 10/21/16 Unknown Magnesium 1.9 mg/dL (1.7-2.3) 10/22/16 04:20 Total Bilirubin 0.5 mg/dL (0.1-1.2) 10/15/16 04:40 AST 79 units/L (5-40) H 10/15/16 04:40 ALT 27 units/L (7-56) 10/15/16 04:40 Alkaline Phosphatase 80 units/L (35-129) 10/15/16 04:40 Ammonia 35.0 umol/L (25-60) 10/13/16 05:40 Total Creatine Kinase 107 units/L (30-135) 10/13/16 04:22 CK-MB (CK-2) 3.1 ng/mL (0.0-4.0) 10/13/16 04:22 CK-MB (CK-2) Rel Index 2.8 (0-4) 10/13/16 04:22 Troponin T < 0.010 ng/mL (0.00-0.029) 10/14/16 18:55 C-Reactive Protein 10.50 mg/dL (0.00-1.30) H 10/13/16 16:14 Total Protein 5.5 g/dL (6.3-8.2) L 10/15/16 04:40 Albumin 3.0 g/dL (3.9-5) L 10/15/16 04:40 Albumin/Globulin Ratio 1.2 % 10/15/16 04:40 Lipase 143 units/L (13-60) H 10/16/16 04:14 Vitamin B12 976.8 pg/mL (211-911) H 10/22/16 10:25 TSH 0.162 mlU/mL (0.270-4.200) L 10/22/16 14:50 Free T4 0.77 ng/dL (0.76-1.46) 10/22/16 14:50 Urine Color Yellow (Yellow) 10/15/16 11:05 Urine Turbidity Cloudy (Clear) 10/15/16 11:05 Urine pH 5.0 (5.0-7.0) 10/15/16 11:05 Ur Specific [place] 1.009 (1.003-1.030) 10/15/16 11:05 Urine Protein 30 mg/dl mg/dL (Negative) 10/15/16 11:05 Urine Glucose (UA) 150 mg/dL (Negative) 10/15/16 11:05 Urine Ketones Neg mg/dL (Negative) 10/15/16 11:05 Urine Blood Lg (Negative) 10/15/16 11:05 Urine Nitrite Neg (Negative) 10/15/16 11:05 Urine Bilirubin Neg (Negative) 10/15/16 11:05 Urine Urobilinogen < 2.0 mg/dL (<2.0) 10/15/16 11:05 Ur Leukocyte Esterase Neg (Negative) 10/15/16 11:05 Urine WBC (Auto) 7.0 /HPF (0.0-6.0) H 10/15/16 11:05 Urine RBC (Auto) 7.0 /HPF (0.0-6.0) 10/15/16 11:05 U Epithel Cells (Auto) 1.0 /HPF (0-13.0) 10/15/16 11:05 Urine Mucus Few /HPF 10/15/16 11:05 Urine Yeast (Budding) 2+ /HPF 10/15/16 11:05 Urine Osmolality 487 Mosm/kg 10/13/16 Unknown Urine Creatinine < 4.2 mg/dL (0.1-20.0) 10/13/16 Unknown Protein/Creatinin Ratio 0.00 10/13/16 Unknown Urine Sodium 10 mEq/L 10/13/16 Unknown Urine Potassium 1.00 mEq/L 10/13/16 Unknown Urine Chloride 10.0 mEq/L (110-250) L 10/13/16 Unknown Urine Total Protein < 4 mg/dL (5-11.8) L 10/13/16 Unknown Vancomycin Trough 17.7 ug/mL (5.0-20.0) 10/22/16 10:25 Ketones 107.3 mg/dL (0.2-2.8) H 10/13/16 04:22
[2016-10-22] MEDS: CARDIZEM IV PRN ×2 (17:54→22:11)
--- NOTE | 2016-10-22 18:40 | Progress Note ---
Subjective Date of service: 10/22/16 Principal diagnosis: respiratory failure on mechanical ventilatory support, DKA Interval history: Awake. no new issues. still has mild fever Vital signs - temp 99.1 CHEST - GOOD [employer] EN[employer] CVS - S1S2 ABD - BS_ LABS Reviewed. stool clostridium difficile positive. See lab section ASSESSMENT 1. Sepsis 2. dka 3. resp failure 4. htn 5. clostridium difficile colitis RECOMMENDATION 1. cbc/bmp in am 2. d/c clindamycin. add oral flagyl. Objective - Constitutional Vitals: Vital Signs Temp Pulse Resp BP Pulse Ox 99.0 F 152 H 22 139/70 100 10/22/16 16:00 10/22/16 18:00 10/22/16 18:00 10/22/16 18:00 10/22/16 18:00 Temperature -Last 24 Hours Temperature 99.0 F Temperature 98.5 F Temperature 103.1 F Temperature 96.7 F Temperature 102.5 F Temperature 102.3 F - Labs CBC & Chem 7: 10/22/16 04:20 10/22/16 04:20 Labs: Abnormal lab results 10/22/16 10/22/16 10/22/16 Range/Units 00:07 04:20 04:20 WBC 20.8 H (4.5-11.0) K/mm3 RBC 2.37 L (3.65-5.03) M/mm3 Hgb 7.5 L (10.1-14.3) gm/dl Hct 23.9 L (30.3-42.9) % MCV 101 H (79-97) fl Seg Neuts % (Manual) 89.0 H (40.0-70.0) % Lymphocytes % (Manual) 7.0 L (13.4-35.0) % Seg Neutrophils # Man 18.5 H (1.8-7.7) K/mm3 Basophils # (Manual) 0.2 H (0.0-0.1) K/mm3 Sodium 148 H (137-145) mmol/L Potassium 2.9 L* (3.6-5.0) mmol/L Chloride 109.4 H (98-107) mmol/L BUN 26 H (7-17) mg/dL Glucose 140 H (65-100) mg/dL POC Glucose 218 H (70-105) Calcium 7.5 L (8.4-10.2) mg/dL Vitamin B12 (211-911) pg/mL TSH (0.270-4.200) mlU/mL 10/22/16 10/22/16 10/22/16 Range/Units 10:25 10:25 14:50 WBC (4.5-11.0) K/mm3 RBC (3.65-5.03) M/mm3 Hgb (10.1-14.3) gm/dl Hct (30.3-42.9) % MCV (79-97) fl Seg Neuts % (Manual) (40.0-70.0) % Lymphocytes % (Manual) (13.4-35.0) % Seg Neutrophils # Man (1.8-7.7) K/mm3 Basophils # (Manual) (0.0-0.1) K/mm3 Sodium (137-145) mmol/L Potassium (3.6-5.0) mmol/L Chloride (98-107) mmol/L BUN (7-17) mg/dL Glucose (65-100) mg/dL POC Glucose (70-105) Calcium (8.4-10.2) mg/dL Vitamin B12 976.8 H (211-911) pg/mL TSH 0.143 L 0.162 L (0.270-4.200) mlU/mL 10/22/16 Range/Units 18:16 WBC (4.5-11.0) K/mm3 RBC (3.65-5.03) M/mm3 Hgb (10.1-14.3) gm/dl Hct (30.3-42.9) % MCV (79-97) fl Seg Neuts % (Manual) (40.0-70.0) % Lymphocytes % (Manual) (13.4-35.0) % Seg Neutrophils # Man (1.8-7.7) K/mm3 Basophils # (Manual) (0.0-0.1) K/mm3 Sodium (137-145) mmol/L Potassium (3.6-5.0) mmol/L Chloride (98-107) mmol/L BUN (7-17) mg/dL Glucose (65-100) mg/dL POC Glucose 193 H (70-105) Calcium (8.4-10.2) mg/dL Vitamin B12 (211-911) pg/mL TSH (0.270-4.200) mlU/mL
[2016-10-22] MEDS ORDERED: NACL 0.9% 1000 ML 1,000 ML ONE (19:48)
[2016-10-22] MEDS ORDERED: NACL 0.9% 1000 ML 1,000 ML IV ONE (20:14)
[2016-10-22] MEDS ORDERED: NACL 0.9% 500 ML 500 ML IV ONE (20:16)
[2016-10-22 20:24] LABS: Hematocrit 26.4 % (30.3-42.9); Hemoglobin 8.2 gm/dl (10.1-14.3); Mean Corpuscular HGB Conc 31 % (30-34); Mean Corpuscular Hemoglobin 32 pg (28-32); Mean Corpuscular Volume 102 fl (79-97); Platelet Count 407 K/mm3 (140-440); Red Blood Count 2.58 M/mm3 (3.65-5.03); Red Cell Distribution Width 13.6 % (13.2-15.2)
[2016-10-22 20:33] LABS: White Blood Count 24.1 K/mm3 (4.5-11.0)
[2016-10-22 21:27] LABS: Basophils % (Manual) 0 % (0.0-1.8); Blastocytes % (Manual) 0 %; Eosinophils % (Manual) 0 % (0.0-4.3); Total Cells Counted Percent 0
[2016-10-22 21:28] LABS: Anisocytosis 1+; Poikilocytosis Few
[2016-10-22 21:29] LABS: Diff Status Complete; Hypochromasia 1+; Platelet Estimate Consistent w Auto; Polychromasia Few
[2016-10-22] MEDS: FLAGYL PO SCH (22:10)
[2016-10-23] MEDS: HEPARIN/ 0.45% NACL-25,000 UNIT/500 ML 25,000 UNITS/500 ML BAG IV SCH ×2 (02:33→22:29)
[2016-10-23] MEDS: AZACTAM/NS 1 GM/50 ML 1 GM/50 ML VIAL IV SCH ×3 (05:22→22:28)
[2016-10-23] MEDS: FLAGYL PO SCH ×3 (05:23→22:30)
[2016-10-23] MEDS: LOPRESSOR IV SCH ×3 (05:23→18:52)
[2016-10-23 05:45] LABS: Hematocrit 31.5 % (30.3-42.9); Hemoglobin 10.1 gm/dl (10.1-14.3); Mean Corpuscular HGB Conc 32 % (30-34); Mean Corpuscular Hemoglobin 31 pg (28-32); Mean Corpuscular Volume 97 fl (79-97); Platelet Count 391 K/mm3 (140-440); Red Blood Count 3.26 M/mm3 (3.65-5.03); Red Cell Distribution Width 17.1 % (13.2-15.2)
[2016-10-23 05:47] LABS: White Blood Count 22.6 K/mm3 (4.5-11.0)
[2016-10-23 06:00] LABS: Anion Gap 15 mmol/L; BUN/Creatinine Ratio 27.77; Blood Urea Nitrogen 25 mg/dL (7-17); Calcium 7.1 mg/dL (8.4-10.2); Carbon Dioxide 20 mmol/L (22-30); Chloride 111.2 mmol/L (98-107); Glucose 227 mg/dL (65-100); Potassium 4.2 mmol/L (3.6-5.0); Sodium 142 mmol/L (137-145)
[2016-10-23 06:54] LABS: Basophils % (Manual) 0 % (0.0-1.8); Blastocytes % (Manual) 0 %; Eosinophils % (Manual) 0 % (0.0-4.3)
[2016-10-23 06:55] LABS: Anisocytosis 1+; Hypochromasia 1+; Poikilocytosis Few; Polychromasia Few
[2016-10-23 06:56] LABS: Diff Status Complete; Large Platelets Rare
[2016-10-23] MEDS: fentaNYL DRIP Premix 2,000 MCG/100 ML BAG IV SCH ×2 (09:00→17:32)
--- NOTE | 2016-10-23 10:17 | Progress Note ---
Assessment and Plan - Patient Problems (1) Acute respiratory failure with hypercapnia Current Visit: Yes Status: Acute Plan to address problem: - continue aspiration precautions / VAP bundles - continue bronchodilators and pulmonary toilet - wean oxygen to keep sats > 94% - resume graded weaning at Psupp of 20 cmH2O (2) Altered mental status Current Visit: Yes Status: Acute Qualifiers: Altered mental status type: A Coma depth: C Coma timing: C Plan to address problem: - no active seizures - following clinically - seen by neurology and will follow their recommendations - no seizures on EEG (3) LUCY (acute kidney injury) Current Visit: Yes Status: Acute Plan to address problem: - replaced potasium - continue free water flushes - follow I's & O's - improving numbers (4) DKA (diabetic ketoacidoses) Current Visit: Yes Status: Acute Qualifiers: Diabetes mellitus type: D Diabetes mellitus complication detail: D Plan to address problem: - off IV insulin - continue SSI (5) Sepsis Current Visit: No Status: Acute Qualifiers: Sepsis type: S Plan to address problem: - continue anti-infectives per ID recs - follow clinically - trend lactate and CRP prn (6) Tachycardia Current Visit: Yes Status: Acute Plan to address problem: - treat pain - treat sepsis - reviewed TFT's (7) Discharge planning issues Current Visit: No Status: Acute Plan to address problem: ...remains critically ill on life sustaining treatments including MVS and at high risk for further deterioration including ...31' CCT Subjective Date of service: 10/23/16 Principal diagnosis: respiratory failure on mechanical ventilatory support, DKA Interval history: Seen and examined at bedside; 24 hour events reviewed; nursing and respiratory care staff consulted; no adverse overnight events reported to me; AMS is persistent; remains on MVS; no emesis or overt aspiration and no gross bleeding Objective Vital Signs - 12hr 10/22/16 10/22/16 10/22/16 22:21 22:30 22:51 Temperature 100.7 F H 99.4 F Pulse Rate 160 H 147 H 148 H Pulse Rate [ From Monitor] Respiratory 22 20 22 Rate Blood Pressure 125/68 115/70 107/61 O2 Sat by Pulse 100 100 Oximetry 10/22/16 10/22/16 10/22/16 23:00 23:21 23:30 Temperature 99.4 F Pulse Rate 148 H 148 H 147 H Pulse Rate [ From Monitor] Respiratory 20 22 21 Rate Blood Pressure 107/61 102/60 102/60 O2 Sat by Pulse 99 100 Oximetry 10/22/16 10/23/16 10/23/16 23:51 00:00 00:10 Temperature 99.4 F 99.1 F Pulse Rate 147 H 147 H 147 H Pulse Rate [ 146 H From Monitor] Respiratory 22 20 Rate Blood Pressure 102/60 108/64 102/60 O2 Sat by Pulse 100 100 99 Oximetry 10/23/16 10/23/16 10/23/16 00:21 00:29 00:30 Temperature 99.4 F 98.9 F Pulse Rate 147 H 145 H 149 H Pulse Rate [ From Monitor] Respiratory 20 20 25 H Rate Blood Pressure 108/64 119/69 111/64 O2 Sat by Pulse 100 99 97 Oximetry 10/23/16 10/23/16 10/23/16 00:41 00:51 01:00 Temperature Pulse Rate 147 H 146 H 146 H Pulse Rate [ From Monitor] Respiratory 20 21 22 Rate Blood Pressure 108/64 108/64 119/69 O2 Sat by Pulse 98 99 Oximetry 10/23/16 10/23/16 10/23/16 01:11 01:21 01:23 Temperature Pulse Rate 146 H 143 H 146 H Pulse Rate [ From Monitor] Respiratory 20 20 23 Rate Blood Pressure 111/64 111/64 111/64 O2 Sat by Pulse 98 99 99 Oximetry 10/23/16 10/23/16 10/23/16 01:30 01:31 01:41 Temperature 98.1 F Pulse Rate 144 H 143 H 143 H Pulse Rate [ From Monitor] Respiratory 20 20 20 Rate Blood Pressure 124/69 113/68 124/69 O2 Sat by Pulse 98 98 Oximetry 10/23/16 10/23/16 10/23/16 01:51 02:00 02:01 Temperature 98.7 F Pulse Rate 143 H 141 H 144 H Pulse Rate [ From Monitor] Respiratory 20 20 22 Rate Blood Pressure 124/69 113/68 124/69 O2 Sat by Pulse 98 98 Oximetry 10/23/16 10/23/16 10/23/16 02:11 02:21 02:27 Temperature 97.4 F L Pulse Rate 142 H 145 H 145 H Pulse Rate [ From Monitor] Respiratory 20 20 20 Rate Blood Pressure 113/68 113/68 113/68 O2 Sat by Pulse 98 98 98 Oximetry 10/23/16 10/23/16 10/23/16 02:30 03:00 03:30 Temperature Pulse Rate 141 H 140 H 141 H Pulse Rate [ From Monitor] Respiratory 20 20 19 Rate Blood Pressure 113/66 117/66 114/67 O2 Sat by Pulse Oximetry 10/23/16 10/23/16 10/23/16 04:00 05:23 05:42 Temperature 99.4 F Pulse Rate 120 H 117 H Pulse Rate [ 110 H From Monitor] Respiratory 20 Rate Blood Pressure 128/68 128/68 O2 Sat by Pulse 99 100 Oximetry Constitutional: no acute distress, other (sedated) Eyes: non-icteric ENT: oropharynx moist Neck: supple, no lymphadenopathy Effort: mildly labored Ascultation: Bilateral: diminished breath sounds, rales (bases) Cardiovascular: regular rate and rhythm Gastrointestinal: normoactive bowel sounds, soft, non-tender, non-distended Integumentary: normal Extremities: no cyanosis, no edema, no ischemia or petechiae, other (cold right foot with digital ischemia) Neurologic: unable to assess Psychiatric: other (sedated) CBC and BMP: 11/05/16 02:30 11/05/16 02:30 ABG, PT/INR, D-dimer: ABG POC ABG pH 7.382 (7.35-7.45) 10/19/16 03:59 POC ABG pCO2 32.2 (35-45) L 10/19/16 03:59 POC ABG pO2 128 (80-105) H 10/19/16 03:59 POC ABG HCO3 19.1 10/19/16 03:59 POC ABG Total CO2 20 10/19/16 03:59 POC ABG O2 Sat 99 10/19/16 03:59 PT/INR, D-dimer PT 16.4 Sec. (12.2-14.9) H 10/17/16 16:07 INR 1.33 (0.87-1.13) H 10/17/16 16:07 Abnormal lab findings: Abnormal Labs 10/13/16 10/13/16 10/13/16 06:38 06:38 07:23 WBC RBC Hgb Hct MCV RDW Plt Count Lymph % (Auto) [place] % (Auto) [place] # Seg Neutrophils % Seg Neuts % (Manual) Lymphocytes % (Manual) Monocytes % (Manual) Seg Neutrophils # Seg Neutrophils # Man Lymphocytes # (Manual) Monocytes # (Manual) Eosinophils # (Manual) Basophils # (Manual) PT INR APTT Heparin Anti-Xa Level POC ABG pH POC ABG pCO2 POC ABG pO2 Sodium Potassium 6.2 H* Chloride Carbon Dioxide 8 L* BUN 85 H Creatinine 2.8 H Glucose 602 H* POC Glucose 495 H Calcium 7.9 L Phosphorus 6.9 H D Magnesium 3.0 H AST C-Reactive Protein Total Protein Albumin Lipase Vitamin B12 TSH Urine WBC (Auto) Urine Chloride Urine Total Protein Crossmatch 10/13/16 10/13/16 10/13/16 08:49 08:55 10:12 WBC RBC Hgb Hct MCV RDW Plt Count Lymph % (Auto) [place] % (Auto) [place] # Seg Neutrophils % Seg Neuts % (Manual) Lymphocytes % (Manual) Monocytes % (Manual) Seg Neutrophils # Seg Neutrophils # Man Lymphocytes # (Manual) Monocytes # (Manual) Eosinophils # (Manual) Basophils # (Manual) PT INR APTT Heparin Anti-Xa Level POC ABG pH POC ABG pCO2 POC ABG pO2 Sodium Potassium 5.6 H Chloride Carbon Dioxide 11 L BUN 77 H Creatinine 2.7 H Glucose 457 H POC Glucose > 500 H 424 H Calcium 8.0 L Phosphorus Magnesium AST C-Reactive Protein Total Protein Albumin Lipase Vitamin B12 TSH Urine WBC (Auto) Urine Chloride Urine Total Protein Crossmatch 10/13/16 10/13/16 10/13/16 10:44 11:22 12:20 WBC RBC Hgb Hct MCV RDW Plt Count Lymph % (Auto) [place] % (Auto) [place] # Seg Neutrophils % Seg Neuts % (Manual) Lymphocytes % (Manual) Monocytes % (Manual) Seg Neutrophils # Seg Neutrophils # Man Lymphocytes # (Manual) Monocytes # (Manual) Eosinophils # (Manual) Basophils # (Manual) PT INR APTT Heparin Anti-Xa Level POC ABG pH POC ABG pCO2 POC ABG pO2 Sodium Potassium 5.4 H Chloride Carbon Dioxide 14 L BUN 72 H Creatinine 2.6 H Glucose 383 H POC Glucose 391 H 313 H Calcium 8.2 L Phosphorus Magnesium AST C-Reactive Protein Total Protein Albumin Lipase Vitamin B12 TSH Urine WBC (Auto) Urine Chloride Urine Total Protein Crossmatch 10/13/16 10/13/16 10/13/16 13:32 14:44 15:57 WBC RBC Hgb Hct MCV RDW Plt Count Lymph % (Auto) [place] % (Auto) [place] # Seg Neutrophils % Seg Neuts % (Manual) Lymphocytes % (Manual) Monocytes % (Manual) Seg Neutrophils # Seg Neutrophils # Man Lymphocytes # (Manual) Monocytes # (Manual) Eosinophils # (Manual) Basophils # (Manual) PT INR APTT Heparin Anti-Xa Level POC ABG pH POC ABG pCO2 POC ABG pO2 Sodium Potassium Chloride Carbon Dioxide BUN Creatinine Glucose POC Glucose 296 H 210 H 190 H Calcium Phosphorus Magnesium AST C-Reactive Protein Total Protein Albumin Lipase Vitamin B12 TSH Urine WBC (Auto) Urine Chloride Urine Total Protein Crossmatch 10/13/16 10/13/16 10/13/16 16:14 16:14 17:17 WBC RBC Hgb Hct MCV RDW Plt Count Lymph % (Auto) [place] % (Auto) [place] # Seg Neutrophils % Seg Neuts % (Manual) Lymphocytes % (Manual) Monocytes % (Manual) Seg Neutrophils # Seg Neutrophils # Man Lymphocytes # (Manual) Monocytes # (Manual) Eosinophils # (Manual) Basophils # (Manual) PT INR APTT Heparin Anti-Xa Level POC ABG pH POC ABG pCO2 POC ABG pO2 Sodium Potassium Chloride Carbon Dioxide 17 L BUN 58 H Creatinine 1.8 H Glucose 172 H POC Glucose 193 H Calcium 7.7 L Phosphorus Magnesium AST C-Reactive Protein 10.50 H Total Protein Albumin Lipase Vitamin B12 TSH Urine WBC (Auto) Urine Chloride Urine Total Protein Crossmatch 10/13/16 10/13/16 10/13/16 17:55 18:32 19:41 WBC RBC Hgb Hct MCV RDW Plt Count Lymph % (Auto) [place] % (Auto) [place] # Seg Neutrophils % Seg Neuts % (Manual) Lymphocytes % (Manual) Monocytes % (Manual) Seg Neutrophils # Seg Neutrophils # Man Lymphocytes # (Manual) Monocytes # (Manual) Eosinophils # (Manual) Basophils # (Manual) PT INR APTT Heparin Anti-Xa Level POC ABG pH POC ABG pCO2 30.6 L POC ABG pO2 218 H Sodium Potassium Chloride Carbon Dioxide BUN Creatinine Glucose POC Glucose 192 H 177 H Calcium Phosphorus Magnesium AST C-Reactive Protein Total Protein Albumin Lipase Vitamin B12 TSH Urine WBC (Auto) Urine Chloride Urine Total Protein Crossmatch 10/13/16 10/13/16 10/13/16 20:54 22:07 23:13 WBC RBC Hgb Hct MCV RDW Plt Count Lymph % (Auto) [place] % (Auto) [place] # Seg Neutrophils % Seg Neuts % (Manual) Lymphocytes % (Manual) Monocytes % (Manual) Seg Neutrophils # Seg Neutrophils # Man Lymphocytes # (Manual) Monocytes # (Manual) Eosinophils # (Manual) Basophils # (Manual) PT INR APTT Heparin Anti-Xa Level POC ABG pH POC ABG pCO2 POC ABG pO2 Sodium Potassium Chloride Carbon Dioxide BUN Creatinine Glucose POC Glucose 178 H 160 H 168 H Calcium Phosphorus Magnesium AST C-Reactive Protein Total Protein Albumin Lipase Vitamin B12 TSH Urine WBC (Auto) Urine Chloride Urine Total Protein Crossmatch 10/13/16 10/13/16 10/14/16 23:25 Unknown 00:21 WBC RBC Hgb Hct MCV RDW Plt Count Lymph % (Auto) [place] % (Auto) [place] # Seg Neutrophils % Seg Neuts % (Manual) Lymphocytes % (Manual) Monocytes % (Manual) Seg Neutrophils # Seg Neutrophils # Man Lymphocytes # (Manual) Monocytes # (Manual) Eosinophils # (Manual) Basophils # (Manual) PT INR APTT Heparin Anti-Xa Level POC ABG pH POC ABG pCO2 POC ABG pO2 Sodium 148 H Potassium Chloride 114.6 H Carbon Dioxide 17 L BUN 56 H Creatinine 1.6 H Glucose 151 H POC Glucose 171 H Calcium 7.8 L Phosphorus Magnesium AST C-Reactive Protein Total Protein Albumin Lipase Vitamin B12 TSH Urine WBC (Auto) Urine Chloride 10.0 L Urine Total Protein < 4 L Crossmatch 10/14/16 10/14/16 10/14/16 01:22 02:29 03:30 WBC RBC Hgb Hct MCV RDW Plt Count Lymph % (Auto) [place] % (Auto) [place] # Seg Neutrophils % Seg Neuts % (Manual) Lymphocytes % (Manual) Monocytes % (Manual) Seg Neutrophils # Seg Neutrophils # Man Lymphocytes # (Manual) Monocytes # (Manual) Eosinophils # (Manual) Basophils # (Manual) PT INR APTT Heparin Anti-Xa Level POC ABG pH POC ABG pCO2 POC ABG pO2 Sodium Potassium Chloride Carbon Dioxide BUN Creatinine Glucose POC Glucose 144 H 136 H 143 H Calcium Phosphorus Magnesium AST C-Reactive Protein Total Protein Albumin Lipase Vitamin B12 TSH Urine WBC (Auto) Urine Chloride Urine Total Protein Crossmatch 10/14/16 10/14/16 10/14/16 04:28 05:16 05:44 WBC RBC Hgb Hct MCV RDW Plt Count Lymph % (Auto) [place] % (Auto) [place] # Seg Neutrophils % Seg Neuts % (Manual) Lymphocytes % (Manual) Monocytes % (Manual) Seg Neutrophils # Seg Neutrophils # Man Lymphocytes # (Manual) Monocytes # (Manual) Eosinophils # (Manual) Basophils # (Manual) PT INR APTT Heparin Anti-Xa Level POC ABG pH POC ABG pCO2 28.2 L POC ABG pO2 125 H Sodium Potassium Chloride Carbon Dioxide BUN Creatinine Glucose POC Glucose 133 H 160 H Calcium Phosphorus Magnesium AST C-Reactive Protein Total Protein Albumin Lipase Vitamin B12 TSH Urine WBC (Auto) Urine Chloride Urine Total Protein Crossmatch 10/14/16 10/14/16 10/14/16 06:12 06:45 07:03 WBC RBC Hgb Hct MCV RDW Plt Count Lymph % (Auto) [place] % (Auto) [place] # Seg Neutrophils % Seg Neuts % (Manual) Lymphocytes % (Manual) Monocytes % (Manual) Seg Neutrophils # Seg Neutrophils # Man Lymphocytes # (Manual) Monocytes # (Manual) Eosinophils # (Manual) Basophils # (Manual) PT INR APTT Heparin Anti-Xa Level POC ABG pH POC ABG pCO2 POC ABG pO2 Sodium 149 H Potassium Chloride 115.4 H Carbon Dioxide 17 L BUN 45 H Creatinine 1.5 H Glucose 139 H POC Glucose 149 H Calcium 7.4 L Phosphorus 1.0 L D Magnesium AST C-Reactive Protein Total Protein Albumin Lipase Vitamin B12 TSH Urine WBC (Auto) Urine Chloride Urine Total Protein Crossmatch 10/14/16 10/14/16 10/14/16 07:03 08:02 09:16 WBC RBC Hgb Hct MCV RDW Plt Count Lymph % (Auto) [place] % (Auto) [place] # Seg Neutrophils % Seg Neuts % (Manual) Lymphocytes % (Manual) Monocytes % (Manual) Seg Neutrophils # Seg Neutrophils # Man Lymphocytes # (Manual) Monocytes # (Manual) Eosinophils # (Manual) Basophils # (Manual) PT INR APTT Heparin Anti-Xa Level POC ABG pH POC ABG pCO2 POC ABG pO2 Sodium Potassium Chloride Carbon Dioxide BUN Creatinine Glucose POC Glucose 156 H 158 H Calcium Phosphorus Magnesium AST C-Reactive Protein Total Protein Albumin Lipase 738 H Vitamin B12 TSH Urine WBC (Auto) Urine Chloride Urine Total Protein Crossmatch 10/14/16 10/14/16 10/14/16 10:26 11:03 11:57 WBC RBC Hgb Hct MCV RDW Plt Count Lymph % (Auto) [place] % (Auto) [place] # Seg Neutrophils % Seg Neuts % (Manual) Lymphocytes % (Manual) Monocytes % (Manual) Seg Neutrophils # Seg Neutrophils # Man Lymphocytes # (Manual) Monocytes # (Manual) Eosinophils # (Manual) Basophils # (Manual) PT INR APTT Heparin Anti-Xa Level POC ABG pH 7.198 L POC ABG pCO2 47.5 H POC ABG pO2 Sodium Potassium Chloride Carbon Dioxide BUN Creatinine Glucose POC Glucose 174 H 189 H Calcium Phosphorus Magnesium AST C-Reactive Protein Total Protein Albumin Lipase Vitamin B12 TSH Urine WBC (Auto) Urine Chloride Urine Total Protein Crossmatch 10/14/16 10/14/16 10/14/16 12:02 12:02 13:11 WBC 13.4 H RBC 3.60 L Hgb Hct MCV 98 H D RDW 13.1 L Plt Count Lymph % (Auto) [place] % (Auto) [place] # Seg Neutrophils % Seg Neuts % (Manual) Lymphocytes % (Manual) Monocytes % (Manual) Seg Neutrophils # Seg Neutrophils # Man Lymphocytes # (Manual) Monocytes # (Manual) Eosinophils # (Manual) Basophils # (Manual) PT INR APTT Heparin Anti-Xa Level POC ABG pH POC ABG pCO2 POC ABG pO2 Sodium Potassium Chloride 110.7 H Carbon Dioxide 19 L BUN 38 H Creatinine 1.4 H Glucose 182 H POC Glucose 173 H Calcium 7.5 L Phosphorus Magnesium AST C-Reactive Protein Total Protein Albumin Lipase Vitamin B12 TSH Urine WBC (Auto) Urine Chloride Urine Total Protein Crossmatch 10/14/16 10/14/16 10/14/16 14:24 15:31 16:36 WBC RBC Hgb Hct MCV RDW Plt Count Lymph % (Auto) [place] % (Auto) [place] # Seg Neutrophils % Seg Neuts % (Manual) Lymphocytes % (Manual) Monocytes % (Manual) Seg Neutrophils # Seg Neutrophils # Man Lymphocytes # (Manual) Monocytes # (Manual) Eosinophils # (Manual) Basophils # (Manual) PT INR APTT Heparin Anti-Xa Level POC ABG pH POC ABG pCO2 POC ABG pO2 Sodium Potassium Chloride Carbon Dioxide BUN Creatinine Glucose POC Glucose 123 H 124 H 156 H Calcium Phosphorus Magnesium AST C-Reactive Protein Total Protein Albumin Lipase Vitamin B12 TSH Urine WBC (Auto) Urine Chloride Urine Total Protein Crossmatch 10/14/16 10/14/16 10/14/16 17:43 19:00 20:08 WBC RBC Hgb Hct MCV RDW Plt Count Lymph % (Auto) [place] % (Auto) [place] # Seg Neutrophils % Seg Neuts % (Manual) Lymphocytes % (Manual) Monocytes % (Manual) Seg Neutrophils # Seg Neutrophils # Man Lymphocytes # (Manual) Monocytes # (Manual) Eosinophils # (Manual) Basophils # (Manual) PT INR APTT Heparin Anti-Xa Level POC ABG pH POC ABG pCO2 POC ABG pO2 Sodium Potassium Chloride Carbon Dioxide BUN Creatinine Glucose POC Glucose 154 H 123 H 138 H Calcium Phosphorus Magnesium AST C-Reactive Protein Total Protein Albumin Lipase Vitamin B12 TSH Urine WBC (Auto) Urine Chloride Urine Total Protein Crossmatch 10/14/16 10/14/16 10/14/16 21:17 22:25 23:37 WBC RBC Hgb Hct MCV RDW Plt Count Lymph % (Auto) [place] % (Auto) [place] # Seg Neutrophils % Seg Neuts % (Manual) Lymphocytes % (Manual) Monocytes % (Manual) Seg Neutrophils # Seg Neutrophils # Man Lymphocytes # (Manual) Monocytes # (Manual) Eosinophils # (Manual) Basophils # (Manual) PT INR APTT Heparin Anti-Xa Level POC ABG pH POC ABG pCO2 POC ABG pO2 Sodium Potassium Chloride Carbon Dioxide BUN Creatinine Glucose POC Glucose 148 H 132 H 137 H Calcium Phosphorus Magnesium AST C-Reactive Protein Total Protein Albumin Lipase Vitamin B12 TSH Urine WBC (Auto) Urine Chloride Urine Total Protein Crossmatch 10/15/16 10/15/16 10/15/16 00:49 01:53 03:06 WBC RBC Hgb Hct MCV RDW Plt Count Lymph % (Auto) [place] % (Auto) [place] # Seg Neutrophils % Seg Neuts % (Manual) Lymphocytes % (Manual) Monocytes % (Manual) Seg Neutrophils # Seg Neutrophils # Man Lymphocytes # (Manual) Monocytes # (Manual) Eosinophils # (Manual) Basophils # (Manual) PT INR APTT Heparin Anti-Xa Level POC ABG pH POC ABG pCO2 POC ABG pO2 Sodium Potassium Chloride Carbon Dioxide BUN Creatinine Glucose POC Glucose 132 H 134 H 134 H Calcium Phosphorus Magnesium AST C-Reactive Protein Total Protein Albumin Lipase Vitamin B12 TSH Urine WBC (Auto) Urine Chloride Urine Total Protein Crossmatch 10/15/16 10/15/16 10/15/16 04:40 04:46 06:21 WBC RBC Hgb Hct MCV RDW Plt Count Lymph % (Auto) [place] % (Auto) [place] # Seg Neutrophils % Seg Neuts % (Manual) Lymphocytes % (Manual) Monocytes % (Manual) Seg Neutrophils # Seg Neutrophils # Man Lymphocytes # (Manual) Monocytes # (Manual) Eosinophils # (Manual) Basophils # (Manual) PT INR APTT Heparin Anti-Xa Level POC ABG pH POC ABG pCO2 30.7 L POC ABG pO2 108 H Sodium Potassium Chloride 109.0 H Carbon Dioxide 17 L BUN 27 H Creatinine Glucose 124 H POC Glucose 160 H Calcium 7.5 L Phosphorus Magnesium AST 79 H C-Reactive Protein Total Protein 5.5 L Albumin 3.0 L Lipase Vitamin B12 TSH Urine WBC (Auto) Urine Chloride Urine Total Protein Crossmatch 10/15/16 10/15/16 10/15/16 07:12 08:01 09:03 WBC RBC Hgb Hct MCV RDW Plt Count Lymph % (Auto) [place] % (Auto) [place] # Seg Neutrophils % Seg Neuts % (Manual) Lymphocytes % (Manual) Monocytes % (Manual) Seg Neutrophils # Seg Neutrophils # Man Lymphocytes # (Manual) Monocytes # (Manual) Eosinophils # (Manual) Basophils # (Manual) PT INR APTT Heparin Anti-Xa Level POC ABG pH POC ABG pCO2 POC ABG pO2 Sodium Potassium Chloride Carbon Dioxide BUN Creatinine Glucose POC Glucose 179 H 187 H 165 H Calcium Phosphorus Magnesium AST C-Reactive Protein Total Protein Albumin Lipase Vitamin B12 TSH Urine WBC (Auto) Urine Chloride Urine Total Protein Crossmatch 10/15/16 10/15/16 10/15/16 10:06 10:06 10:07 WBC 12.1 H RBC 3.01 L Hgb 9.7 L Hct 29.6 L MCV 98 H RDW Plt Count 129 L Lymph % (Auto) [place] % (Auto) [place] # Seg Neutrophils % Seg Neuts % (Manual) Lymphocytes % (Manual) Monocytes % (Manual) Seg Neutrophils # Seg Neutrophils # Man Lymphocytes # (Manual) Monocytes # (Manual) Eosinophils # (Manual) Basophils # (Manual) PT INR APTT Heparin Anti-Xa Level POC ABG pH POC ABG pCO2 POC ABG pO2 Sodium Potassium 3.2 L D Chloride 109.6 H Carbon Dioxide 18 L BUN 22 H Creatinine Glucose 127 H POC Glucose 147 H Calcium 7.0 L Phosphorus Magnesium AST C-Reactive Protein Total Protein Albumin Lipase Vitamin B12 TSH Urine WBC (Auto) Urine Chloride Urine Total Protein Crossmatch 10/15/16 10/15/16 10/15/16 11:05 11:06 11:57 WBC RBC Hgb Hct MCV RDW Plt Count Lymph % (Auto) [place] % (Auto) [place] # Seg Neutrophils % Seg Neuts % (Manual) Lymphocytes % (Manual) Monocytes % (Manual) Seg Neutrophils # Seg Neutrophils # Man Lymphocytes # (Manual) Monocytes # (Manual) Eosinophils # (Manual) Basophils # (Manual) PT INR APTT Heparin Anti-Xa Level POC ABG pH 7.305 L POC ABG pCO2 POC ABG pO2 Sodium Potassium Chloride Carbon Dioxide BUN Creatinine Glucose POC Glucose 145 H Calcium Phosphorus Magnesium AST C-Reactive Protein Total Protein Albumin Lipase Vitamin B12 TSH Urine WBC (Auto) 7.0 H Urine Chloride Urine Total Protein Crossmatch 10/15/16 10/15/16 10/15/16 12:04 13:59 15:24 WBC RBC Hgb Hct MCV RDW Plt Count Lymph % (Auto) [place] % (Auto) [place] # Seg Neutrophils % Seg Neuts % (Manual) Lymphocytes % (Manual) Monocytes % (Manual) Seg Neutrophils # Seg Neutrophils # Man Lymphocytes # (Manual) Monocytes # (Manual) Eosinophils # (Manual) Basophils # (Manual) PT INR APTT Heparin Anti-Xa Level POC ABG pH POC ABG pCO2 POC ABG pO2 Sodium Potassium Chloride Carbon Dioxide BUN Creatinine Glucose POC Glucose 123 H 147 H 153 H Calcium Phosphorus Magnesium AST C-Reactive Protein Total Protein Albumin Lipase Vitamin B12 TSH Urine WBC (Auto) Urine Chloride Urine Total Protein Crossmatch 10/15/16 10/15/16 10/15/16 16:30 17:34 18:30 WBC RBC Hgb Hct MCV RDW Plt Count Lymph % (Auto) [place] % (Auto) [place] # Seg Neutrophils % Seg Neuts % (Manual) Lymphocytes % (Manual) Monocytes % (Manual) Seg Neutrophils # Seg Neutrophils # Man Lymphocytes # (Manual) Monocytes # (Manual) Eosinophils # (Manual) Basophils # (Manual) PT INR APTT Heparin Anti-Xa Level POC ABG pH POC ABG pCO2 POC ABG pO2 Sodium Potassium Chloride Carbon Dioxide BUN Creatinine Glucose POC Glucose 223 H 236 H 164 H Calcium Phosphorus Magnesium AST C-Reactive Protein Total Protein Albumin Lipase Vitamin B12 TSH Urine WBC (Auto) Urine Chloride Urine Total Protein Crossmatch 10/15/16 10/15/16 10/15/16 19:14 20:31 21:23 WBC RBC Hgb Hct MCV RDW Plt Count Lymph % (Auto) [place] % (Auto) [place] # Seg Neutrophils % Seg Neuts % (Manual) Lymphocytes % (Manual) Monocytes % (Manual) Seg Neutrophils # Seg Neutrophils # Man Lymphocytes # (Manual) Monocytes # (Manual) Eosinophils # (Manual) Basophils # (Manual) PT INR APTT Heparin Anti-Xa Level POC ABG pH POC ABG pCO2 POC ABG pO2 Sodium Potassium Chloride Carbon Dioxide BUN Creatinine Glucose POC Glucose 138 H 158 H 158 H Calcium Phosphorus Magnesium AST C-Reactive Protein Total Protein Albumin Lipase Vitamin B12 TSH Urine WBC (Auto) Urine Chloride Urine Total Protein Crossmatch 10/15/16 10/15/16 10/16/16 22:04 22:57 00:11 WBC RBC Hgb Hct MCV RDW Plt Count Lymph % (Auto) [place] % (Auto) [place] # Seg Neutrophils % Seg Neuts % (Manual) Lymphocytes % (Manual) Monocytes % (Manual) Seg Neutrophils # Seg Neutrophils # Man Lymphocytes # (Manual) Monocytes # (Manual) Eosinophils # (Manual) Basophils # (Manual) PT INR APTT Heparin Anti-Xa Level POC ABG pH POC ABG pCO2 POC ABG pO2 Sodium Potassium Chloride Carbon Dioxide BUN Creatinine Glucose POC Glucose 168 H 213 H 166 H Calcium Phosphorus Magnesium AST C-Reactive Protein Total Protein Albumin Lipase Vitamin B12 TSH Urine WBC (Auto) Urine Chloride Urine Total Protein Crossmatch 10/16/16 10/16/16 10/16/16 01:16 02:32 03:38 WBC RBC Hgb Hct MCV RDW Plt Count Lymph % (Auto) [place] % (Auto) [place] # Seg Neutrophils % Seg Neuts % (Manual) Lymphocytes % (Manual) Monocytes % (Manual) Seg Neutrophils # Seg Neutrophils # Man Lymphocytes # (Manual) Monocytes # (Manual) Eosinophils # (Manual) Basophils # (Manual) PT INR APTT Heparin Anti-Xa Level POC ABG pH POC ABG pCO2 POC ABG pO2 Sodium Potassium Chloride Carbon Dioxide BUN Creatinine Glucose POC Glucose 171 H 164 H 147 H Calcium Phosphorus Magnesium AST C-Reactive Protein Total Protein Albumin Lipase Vitamin B12 TSH Urine WBC (Auto) Urine Chloride Urine Total Protein Crossmatch 10/16/16 10/16/16 10/16/16 04:14 04:14 04:49 WBC RBC Hgb Hct MCV RDW Plt Count Lymph % (Auto) [place] % (Auto) [place] # Seg Neutrophils % Seg Neuts % (Manual) Lymphocytes % (Manual) Monocytes % (Manual) Seg Neutrophils # Seg Neutrophils # Man Lymphocytes # (Manual) Monocytes # (Manual) Eosinophils # (Manual) Basophils # (Manual) PT INR APTT Heparin Anti-Xa Level POC ABG pH POC ABG pCO2 POC ABG pO2 Sodium 147 H Potassium Chloride 110.9 H Carbon Dioxide 19 L BUN Creatinine Glucose 139 H POC Glucose 144 H Calcium 7.3 L Phosphorus 2.3 L Magnesium AST C-Reactive Protein Total Protein Albumin Lipase 143 H Vitamin B12 TSH Urine WBC (Auto) Urine Chloride Urine Total Protein Crossmatch 10/16/16 10/16/16 10/16/16 05:03 05:41 05:58 WBC 16.5 H RBC 3.36 L Hgb Hct MCV 98 H RDW 13.1 L Plt Count Lymph % (Auto) 8.5 L Cow[place] % (Auto) 7.6 H Cowley # 1.3 H Seg Neutrophils % 83.3 H Seg Neuts % (Manual) Lymphocytes % (Manual) Monocytes % (Manual) Seg Neutrophils # 13.8 H Seg Neutrophils # Man Lymphocytes # (Manual) Monocytes # (Manual) Eosinophils # (Manual) Basophils # (Manual) PT INR APTT Heparin Anti-Xa Level POC ABG pH POC ABG pCO2 30.7 L POC ABG pO2 128 H Sodium Potassium Chloride Carbon Dioxide BUN Creatinine Glucose POC Glucose 131 H Calcium Phosphorus Magnesium AST C-Reactive Protein Total Protein Albumin Lipase Vitamin B12 TSH Urine WBC (Auto) Urine Chloride Urine Total Protein Crossmatch 10/16/16 10/16/16 10/16/16 06:32 09:27 09:35 WBC RBC Hgb Hct MCV RDW Plt Count Lymph % (Auto) [place] % (Auto) [place] # Seg Neutrophils % Seg Neuts % (Manual) Lymphocytes % (Manual) Monocytes % (Manual) Seg Neutrophils # Seg Neutrophils # Man Lymphocytes # (Manual) Monocytes # (Manual) Eosinophils # (Manual) Basophils # (Manual) PT INR APTT Heparin Anti-Xa Level POC ABG pH POC ABG pCO2 32.8 L POC ABG pO2 137 H Sodium Potassium Chloride Carbon Dioxide BUN Creatinine Glucose POC Glucose 121 H 150 H Calcium Phosphorus Magnesium AST C-Reactive Protein Total Protein Albumin Lipase Vitamin B12 TSH Urine WBC (Auto) Urine Chloride Urine Total Protein Crossmatch 10/16/16 10/16/16 10/16/16 10:47 13:27 14:24 WBC RBC Hgb Hct MCV RDW Plt Count Lymph % (Auto) [place] % (Auto) [place] # Seg Neutrophils % Seg Neuts % (Manual) Lymphocytes % (Manual) Monocytes % (Manual) Seg Neutrophils # Seg Neutrophils # Man Lymphocytes # (Manual) Monocytes # (Manual) Eosinophils # (Manual) Basophils # (Manual) PT INR APTT Heparin Anti-Xa Level POC ABG pH POC ABG pCO2 POC ABG pO2 Sodium Potassium Chloride Carbon Dioxide BUN Creatinine Glucose POC Glucose 184 H 171 H 174 H Calcium Phosphorus Magnesium AST C-Reactive Protein Total Protein Albumin Lipase Vitamin B12 TSH Urine WBC (Auto) Urine Chloride Urine Total Protein Crossmatch 10/16/16 10/16/16 10/16/16 15:48 16:26 18:17 WBC RBC Hgb Hct MCV RDW Plt Count Lymph % (Auto) [place] % (Auto) [place] # Seg Neutrophils % Seg Neuts % (Manual) Lymphocytes % (Manual) Monocytes % (Manual) Seg Neutrophils # Seg Neutrophils # Man Lymphocytes # (Manual) Monocytes # (Manual) Eosinophils # (Manual) Basophils # (Manual) PT INR APTT Heparin Anti-Xa Level POC ABG pH POC ABG pCO2 POC ABG pO2 Sodium Potassium Chloride Carbon Dioxide BUN Creatinine Glucose POC Glucose 205 H 204 H 234 H Calcium Phosphorus Magnesium AST C-Reactive Protein Total Protein Albumin Lipase Vitamin B12 TSH Urine WBC (Auto) Urine Chloride Urine Total Protein Crossmatch 10/16/16 10/16/16 10/16/16 19:40 20:33 21:36 WBC RBC Hgb Hct MCV RDW Plt Count Lymph % (Auto) [place] % (Auto) [place] # Seg Neutrophils % Seg Neuts % (Manual) Lymphocytes % (Manual) Monocytes % (Manual) Seg Neutrophils # Seg Neutrophils # Man Lymphocytes # (Manual) Monocytes # (Manual) Eosinophils # (Manual) Basophils # (Manual) PT INR APTT Heparin Anti-Xa Level POC ABG pH POC ABG pCO2 POC ABG pO2 Sodium Potassium Chloride Carbon Dioxide BUN Creatinine Glucose POC Glucose 167 H 153 H 158 H Calcium Phosphorus Magnesium AST C-Reactive Protein Total Protein Albumin Lipase Vitamin B12 TSH Urine WBC (Auto) Urine Chloride Urine Total Protein Crossmatch 10/16/16 10/16/16 10/17/16 22:54 23:48 00:47 WBC RBC Hgb Hct MCV RDW Plt Count Lymph % (Auto) [place] % (Auto) [place] # Seg Neutrophils % Seg Neuts % (Manual) Lymphocytes % (Manual) Monocytes % (Manual) Seg Neutrophils # Seg Neutrophils # Man Lymphocytes # (Manual) Monocytes # (Manual) Eosinophils # (Manual) Basophils # (Manual) PT INR APTT Heparin Anti-Xa Level POC ABG pH POC ABG pCO2 POC ABG pO2 Sodium Potassium Chloride Carbon Dioxide BUN Creatinine Glucose POC Glucose 180 H 207 H 196 H Calcium Phosphorus Magnesium AST C-Reactive Protein Total Protein Albumin Lipase Vitamin B12 TSH Urine WBC (Auto) Urine Chloride Urine Total Protein Crossmatch 10/17/16 10/17/16 10/17/16 01:57 02:49 03:50 WBC RBC Hgb Hct MCV RDW Plt Count Lymph % (Auto) [place] % (Auto) [place] # Seg Neutrophils % Seg Neuts % (Manual) Lymphocytes % (Manual) Monocytes % (Manual) Seg Neutrophils # Seg Neutrophils # Man Lymphocytes # (Manual) Monocytes # (Manual) Eosinophils # (Manual) Basophils # (Manual) PT INR APTT Heparin Anti-Xa Level POC ABG pH POC ABG pCO2 POC ABG pO2 Sodium Potassium Chloride Carbon Dioxide BUN Creatinine Glucose POC Glucose 180 H 151 H 106 H Calcium Phosphorus Magnesium AST C-Reactive Protein Total Protein Albumin Lipase Vitamin B12 TSH Urine WBC (Auto) Urine Chloride Urine Total Protein Crossmatch 10/17/16 10/17/16 10/17/16 04:59 06:03 06:35 WBC RBC Hgb Hct MCV RDW Plt Count Lymph % (Auto) [place] % (Auto) [place] # Seg Neutrophils % Seg Neuts % (Manual) Lymphocytes % (Manual) Monocytes % (Manual) Seg Neutrophils # Seg Neutrophils # Man Lymphocytes # (Manual) Monocytes # (Manual) Eosinophils # (Manual) Basophils # (Manual) PT INR APTT Heparin Anti-Xa Level POC ABG pH 7.453 H POC ABG pCO2 30.1 L POC ABG pO2 111 H Sodium Potassium Chloride Carbon Dioxide BUN Creatinine Glucose POC Glucose 145 H 157 H Calcium Phosphorus Magnesium AST C-Reactive Protein Total Protein Albumin Lipase Vitamin B12 TSH Urine WBC (Auto) Urine Chloride Urine Total Protein Crossmatch 10/17/16 10/17/16 10/17/16 07:08 07:11 08:01 WBC RBC Hgb Hct MCV RDW Plt Count Lymph % (Auto) [place] % (Auto) [place] # Seg Neutrophils % Seg Neuts % (Manual) Lymphocytes % (Manual) Monocytes % (Manual) Seg Neutrophils # Seg Neutrophils # Man Lymphocytes # (Manual) Monocytes # (Manual) Eosinophils # (Manual) Basophils # (Manual) PT INR APTT Heparin Anti-Xa Level POC ABG pH POC ABG pCO2 POC ABG pO2 Sodium 147 H Potassium Chloride 113.8 H Carbon Dioxide 19 L BUN Creatinine Glucose 136 H POC Glucose 136 H 152 H Calcium 7.7 L Phosphorus Magnesium AST C-Reactive Protein Total Protein Albumin Lipase Vitamin B12 TSH Urine WBC (Auto) Urine Chloride Urine Total Protein Crossmatch 10/17/16 10/17/16 10/17/16 08:23 09:17 09:53 WBC 18.1 H RBC 3.01 L Hgb 9.7 L Hct 29.4 L MCV 98 H RDW Plt Count 116 L Lymph % (Auto) [place] % (Auto) [place] # Seg Neutrophils % Seg Neuts % (Manual) 77.0 H Lymphocytes % (Manual) 4.0 L Monocytes % (Manual) 12.0 H Seg Neutrophils # Seg Neutrophils # Man 13.9 H Lymphocytes # (Manual) 0.7 L Monocytes # (Manual) 2.2 H Eosinophils # (Manual) Basophils # (Manual) PT INR APTT Heparin Anti-Xa Level POC ABG pH POC ABG pCO2 POC ABG pO2 Sodium Potassium Chloride Carbon Dioxide BUN Creatinine Glucose POC Glucose 148 H 137 H Calcium Phosphorus Magnesium AST C-Reactive Protein Total Protein Albumin Lipase Vitamin B12 TSH Urine WBC (Auto) Urine Chloride Urine Total Protein Crossmatch 10/17/16 10/17/16 10/17/16 11:43 16:07 17:42 WBC RBC Hgb Hct MCV RDW Plt Count Lymph % (Auto) [place] % (Auto) [place] # Seg Neutrophils % Seg Neuts % (Manual) Lymphocytes % (Manual) Monocytes % (Manual) Seg Neutrophils # Seg Neutrophils # Man Lymphocytes # (Manual) Monocytes # (Manual) Eosinophils # (Manual) Basophils # (Manual) PT 16.4 H INR 1.33 H APTT 38.8 H Heparin Anti-Xa Level POC ABG pH POC ABG pCO2 POC ABG pO2 Sodium Potassium Chloride Carbon Dioxide BUN Creatinine Glucose POC Glucose 179 H 153 H Calcium Phosphorus Magnesium AST C-Reactive Protein Total Protein Albumin Lipase Vitamin B12 TSH Urine WBC (Auto) Urine Chloride Urine Total Protein Crossmatch 10/17/16 10/18/16 10/18/16 22:54 04:37 05:39 WBC RBC Hgb Hct MCV RDW Plt Count Lymph % (Auto) [place] % (Auto) [place] # Seg Neutrophils % Seg Neuts % (Manual) Lymphocytes % (Manual) Monocytes % (Manual) Seg Neutrophils # Seg Neutrophils # Man Lymphocytes # (Manual) Monocytes # (Manual) Eosinophils # (Manual) Basophils # (Manual) PT INR APTT Heparin Anti-Xa Level 0.27 L POC ABG pH 7.454 H POC ABG pCO2 30.8 L POC ABG pO2 115 H Sodium Potassium Chloride Carbon Dioxide BUN Creatinine Glucose POC Glucose 69 L Calcium Phosphorus Magnesium AST C-Reactive Protein Total Protein Albumin Lipase Vitamin B12 TSH Urine WBC (Auto) Urine Chloride Urine Total Protein Crossmatch 10/18/16 10/18/16 10/18/16 06:46 06:46 06:46 WBC 20.5 H RBC 2.62 L Hgb 8.4 L Hct 26.0 L MCV 100 H RDW Plt Count Lymph % (Auto) [place] % (Auto) [place] # Seg Neutrophils % Seg Neuts % (Manual) 75.0 H Lymphocytes % (Manual) 9.0 L Monocytes % (Manual) 14.0 H Seg Neutrophils # Seg Neutrophils # Man 15.4 H Lymphocytes # (Manual) Monocytes # (Manual) 2.9 H Eosinophils # (Manual) Basophils # (Manual) PT INR APTT Heparin Anti-Xa Level POC ABG pH POC ABG pCO2 POC ABG pO2 Sodium Potassium Chloride 110.6 H Carbon Dioxide BUN Creatinine 1.3 H Glucose 153 H POC Glucose Calcium 8.0 L Phosphorus Magnesium 1.6 L AST C-Reactive Protein Total Protein Albumin Lipase Vitamin B12 TSH Urine WBC (Auto) Urine Chloride Urine Total Protein Crossmatch 10/18/16 10/18/16 10/18/16 07:30 11:37 17:51 WBC RBC Hgb Hct MCV RDW Plt Count Lymph % (Auto) [place] % (Auto) [place] # Seg Neutrophils % Seg Neuts % (Manual) Lymphocytes % (Manual) Monocytes % (Manual) Seg Neutrophils # Seg Neutrophils # Man Lymphocytes # (Manual) Monocytes # (Manual) Eosinophils # (Manual) Basophils # (Manual) PT INR APTT Heparin Anti-Xa Level POC ABG pH POC ABG pCO2 POC ABG pO2 Sodium Potassium Chloride Carbon Dioxide BUN Creatinine Glucose POC Glucose 162 H 156 H 164 H Calcium Phosphorus Magnesium AST C-Reactive Protein Total Protein Albumin Lipase Vitamin B12 TSH Urine WBC (Auto) Urine Chloride Urine Total Protein Crossmatch 10/18/16 10/19/16 10/19/16 23:44 03:59 05:13 WBC 18.2 H RBC 2.76 L Hgb 9.0 L Hct 27.7 L MCV 100 H RDW Plt Count Lymph % (Auto) [place] % (Auto) [place] # Seg Neutrophils % Seg Neuts % (Manual) 76.0 H Lymphocytes % (Manual) 10.0 L Monocytes % (Manual) Seg Neutrophils # Seg Neutrophils # Man 13.8 H Lymphocytes # (Manual) Monocytes # (Manual) Eosinophils # (Manual) Basophils # (Manual) PT INR APTT Heparin Anti-Xa Level POC ABG pH POC ABG pCO2 32.2 L POC ABG pO2 128 H Sodium Potassium Chloride Carbon Dioxide BUN Creatinine Glucose POC Glucose 278 H Calcium Phosphorus Magnesium AST C-Reactive Protein Total Protein Albumin Lipase Vitamin B12 TSH Urine WBC (Auto) Urine Chloride Urine Total Protein Crossmatch 10/19/16 10/19/16 10/19/16 06:01 06:30 12:20 WBC RBC Hgb Hct MCV RDW Plt Count Lymph % (Auto) [place] % (Auto) [place] # Seg Neutrophils % Seg Neuts % (Manual) Lymphocytes % (Manual) Monocytes % (Manual) Seg Neutrophils # Seg Neutrophils # Man Lymphocytes # (Manual) Monocytes # (Manual) Eosinophils # (Manual) Basophils # (Manual) PT INR APTT Heparin Anti-Xa Level POC ABG pH POC ABG pCO2 POC ABG pO2 Sodium Potassium Chloride Carbon Dioxide 18 L BUN Creatinine 1.3 H Glucose 262 H POC Glucose 261 H 349 H Calcium 7.7 L Phosphorus 4.8 H D Magnesium AST C-Reactive Protein Total Protein Albumin Lipase Vitamin B12 TSH Urine WBC (Auto) Urine Chloride Urine Total Protein Crossmatch 10/19/16 10/20/16 10/20/16 16:48 00:17 05:20 WBC 22.5 H RBC 2.80 L Hgb 8.9 L Hct 28.3 L MCV 101 H RDW Plt Count Lymph % (Auto) [place] % (Auto) [place] # Seg Neutrophils % Seg Neuts % (Manual) Lymphocytes % (Manual) 10.0 L Monocytes % (Manual) Seg Neutrophils # Seg Neutrophils # Man 13.3 H Lymphocytes # (Manual) Monocytes # (Manual) 1.1 H Eosinophils # (Manual) 0.7 H Basophils # (Manual) PT INR APTT Heparin Anti-Xa Level POC ABG pH POC ABG pCO2 POC ABG pO2 Sodium Potassium Chloride Carbon Dioxide BUN Creatinine Glucose POC Glucose 248 H 346 H Calcium Phosphorus Magnesium AST C-Reactive Protein Total Protein Albumin Lipase Vitamin B12 TSH Urine WBC (Auto) Urine Chloride Urine Total Protein Crossmatch 10/20/16 10/20/16 10/20/16 05:20 05:20 06:05 WBC RBC Hgb Hct MCV RDW Plt Count Lymph % (Auto) [place] % (Auto) [place] # Seg Neutrophils % Seg Neuts % (Manual) Lymphocytes % (Manual) Monocytes % (Manual) Seg Neutrophils # Seg Neutrophils # Man Lymphocytes # (Manual) Monocytes # (Manual) Eosinophils # (Manual) Basophils # (Manual) PT INR APTT Heparin Anti-Xa Level 0.20 L POC ABG pH POC ABG pCO2 POC ABG pO2 Sodium Potassium Chloride Carbon Dioxide BUN 20 H Creatinine Glucose 374 H POC Glucose 337 H Calcium 8.3 L Phosphorus Magnesium AST C-Reactive Protein Total Protein Albumin Lipase Vitamin B12 TSH Urine WBC (Auto) Urine Chloride Urine Total Protein Crossmatch 10/20/16 10/20/16 10/20/16 11:49 13:59 17:56 WBC RBC Hgb Hct MCV RDW Plt Count Lymph % (Auto) [place] % (Auto) [place] # Seg Neutrophils % Seg Neuts % (Manual) Lymphocytes % (Manual) Monocytes % (Manual) Seg Neutrophils # Seg Neutrophils # Man Lymphocytes # (Manual) Monocytes # (Manual) Eosinophils # (Manual) Basophils # (Manual) PT INR APTT Heparin Anti-Xa Level 2.00 H POC ABG pH POC ABG pCO2 POC ABG pO2 Sodium Potassium Chloride Carbon Dioxide BUN Creatinine Glucose POC Glucose 305 H 362 H Calcium Phosphorus Magnesium AST C-Reactive Protein Total Protein Albumin Lipase Vitamin B12 TSH Urine WBC (Auto) Urine Chloride Urine Total Protein Crossmatch 10/20/16 10/21/16 10/21/16 23:52 05:00 05:49 WBC 22.9 H RBC 2.49 L Hgb 7.7 L Hct 25.6 L MCV 103 H RDW Plt Count Lymph % (Auto) [place] % (Auto) [place] # Seg Neutrophils % Seg Neuts % (Manual) 94.0 H Lymphocytes % (Manual) 1.0 L Monocytes % (Manual) Seg Neutrophils # Seg Neutrophils # Man 21.5 H Lymphocytes # (Manual) 0.2 L Monocytes # (Manual) 1.1 H Eosinophils # (Manual) Basophils # (Manual) PT INR APTT Heparin Anti-Xa Level POC ABG pH POC ABG pCO2 POC ABG pO2 Sodium Potassium Chloride Carbon Dioxide BUN Creatinine Glucose POC Glucose 252 H 180 H Calcium Phosphorus Magnesium AST C-Reactive Protein Total Protein Albumin Lipase Vitamin B12 TSH Urine WBC (Auto) Urine Chloride Urine Total Protein Crossmatch 10/21/16 10/21/16 10/21/16 11:47 11:49 14:10 WBC RBC Hgb Hct MCV RDW Plt Count Lymph % (Auto) [place] % (Auto) [place] # Seg Neutrophils % Seg Neuts % (Manual) Lymphocytes % (Manual) Monocytes % (Manual) Seg Neutrophils # Seg Neutrophils # Man Lymphocytes # (Manual) Monocytes # (Manual) Eosinophils # (Manual) Basophils # (Manual) PT INR APTT Heparin Anti-Xa Level POC ABG pH POC ABG pCO2 POC ABG pO2 Sodium Potassium Chloride Carbon Dioxide BUN Creatinine Glucose POC Glucose 50 L 56 L 140 H Calcium Phosphorus Magnesium AST C-Reactive Protein Total Protein Albumin Lipase Vitamin B12 TSH Urine WBC (Auto) Urine Chloride Urine Total Protein Crossmatch 10/21/16 10/21/16 10/22/16 18:24 Unknown 00:07 WBC RBC Hgb Hct MCV RDW Plt Count Lymph % (Auto) [place] % (Auto) [place] # Seg Neutrophils % Seg Neuts % (Manual) Lymphocytes % (Manual) Monocytes % (Manual) Seg Neutrophils # Seg Neutrophils # Man Lymphocytes # (Manual) Monocytes # (Manual) Eosinophils # (Manual) Basophils # (Manual) PT INR APTT Heparin Anti-Xa Level POC ABG pH POC ABG pCO2 POC ABG pO2 Sodium 150 H Potassium 3.1 L Chloride 112.4 H Carbon Dioxide BUN 25 H Creatinine 1.4 H Glucose POC Glucose 175 H 218 H Calcium 8.0 L Phosphorus Magnesium AST C-Reactive Protein Total Protein Albumin Lipase Vitamin B12 TSH Urine WBC (Auto) Urine Chloride Urine Total Protein Crossmatch 10/22/16 10/22/16 10/22/16 04:20 04:20 10:25 WBC 20.8 H RBC 2.37 L Hgb 7.5 L Hct 23.9 L MCV 101 H RDW Plt Count Lymph % (Auto) [place] % (Auto) [place] # Seg Neutrophils % Seg Neuts % (Manual) 89.0 H Lymphocytes % (Manual) 7.0 L Monocytes % (Manual) Seg Neutrophils # Seg Neutrophils # Man 18.5 H Lymphocytes # (Manual) Monocytes # (Manual) Eosinophils # (Manual) Basophils # (Manual) 0.2 H PT INR APTT Heparin Anti-Xa Level POC ABG pH POC ABG pCO2 POC ABG pO2 Sodium 148 H Potassium 2.9 L* Chloride 109.4 H Carbon Dioxide BUN 26 H Creatinine Glucose 140 H POC Glucose Calcium 7.5 L Phosphorus Magnesium AST C-Reactive Protein Total Protein Albumin Lipase Vitamin B12 976.8 H TSH Urine WBC (Auto) Urine Chloride Urine Total Protein Crossmatch 10/22/16 10/22/16 10/22/16 10:25 14:50 18:16 WBC RBC Hgb Hct MCV RDW Plt Count Lymph % (Auto) [place] % (Auto) [place] # Seg Neutrophils % Seg Neuts % (Manual) Lymphocytes % (Manual) Monocytes % (Manual) Seg Neutrophils # Seg Neutrophils # Man Lymphocytes # (Manual) Monocytes # (Manual) Eosinophils # (Manual) Basophils # (Manual) PT INR APTT Heparin Anti-Xa Level POC ABG pH POC ABG pCO2 POC ABG pO2 Sodium Potassium Chloride Carbon Dioxide BUN Creatinine Glucose POC Glucose 193 H Calcium Phosphorus Magnesium AST C-Reactive Protein Total Protein Albumin Lipase Vitamin B12 TSH 0.143 L 0.162 L Urine WBC (Auto) Urine Chloride Urine Total Protein Crossmatch 10/22/16 10/22/16 10/22/16 20:00 20:00 20:00 WBC 24.1 H RBC 2.58 L Hgb 8.2 L Hct 26.4 L MCV 102 H RDW Plt Count Lymph % (Auto) [place] % (Auto) [place] # Seg Neutrophils % Seg Neuts % (Manual) 74.0 H Lymphocytes % (Manual) 7.0 L Monocytes % (Manual) Seg Neutrophils # Seg Neutrophils # Man 17.8 H Lymphocytes # (Manual) Monocytes # (Manual) Eosinophils # (Manual) Basophils # (Manual) PT INR APTT Heparin Anti-Xa Level 1.92 H POC ABG pH POC ABG pCO2 POC ABG pO2 Sodium Potassium Chloride Carbon Dioxide BUN Creatinine Glucose POC Glucose Calcium Phosphorus Magnesium AST C-Reactive Protein Total Protein Albumin Lipase Vitamin B12 TSH Urine WBC (Auto) Urine Chloride Urine Total Protein Crossmatch See Detail 10/23/16 10/23/16 10/23/16 00:21 06:09 Unknown WBC 22.6 H RBC 3.26 L Hgb Hct MCV RDW 17.1 H Plt Count Lymph % (Auto) [place] % (Auto) [place] # Seg Neutrophils % Seg Neuts % (Manual) Lymphocytes % (Manual) 11.0 L Monocytes % (Manual) Seg Neutrophils # Seg Neutrophils # Man 14.0 H Lymphocytes # (Manual) Monocytes # (Manual) Eosinophils # (Manual) Basophils # (Manual) PT INR APTT Heparin Anti-Xa Level POC ABG pH POC ABG pCO2 POC ABG pO2 Sodium Potassium Chloride Carbon Dioxide BUN Creatinine Glucose POC Glucose 283 H 241 H Calcium Phosphorus Magnesium AST C-Reactive Protein Total Protein Albumin Lipase Vitamin B12 TSH Urine WBC (Auto) Urine Chloride Urine Total Protein Crossmatch 10/23/16 10/23/16 Unknown Unknown WBC RBC Hgb Hct MCV RDW Plt Count Lymph % (Auto) [place] % (Auto) [place] # Seg Neutrophils % Seg Neuts % (Manual) Lymphocytes % (Manual) Monocytes % (Manual) Seg Neutrophils # Seg Neutrophils # Man Lymphocytes # (Manual) Monocytes # (Manual) Eosinophils # (Manual) Basophils # (Manual) PT INR APTT Heparin Anti-Xa Level 0.15 L POC ABG pH POC ABG pCO2 POC ABG pO2 Sodium Potassium Chloride 111.2 H Carbon Dioxide 20 L BUN 25 H Creatinine Glucose 227 H POC Glucose Calcium 7.1 L Phosphorus Magnesium AST C-Reactive Protein Total Protein Albumin Lipase Vitamin B12 TSH Urine WBC (Auto) Urine Chloride Urine Total Protein Crossmatch Allied health notes reviewed: RT
[2016-10-23] MEDS: TYLENOL FEEDTUBE PRN (10:27)
[2016-10-23] MEDS: DIFLUCAN 200 MG/100 ML BAG IV SCH (10:27)
[2016-10-23] MEDS: PEPCID PO SCH ×2 (10:27→22:30)
[2016-10-23] MEDS: VANCOMYCIN VIAL 1,250 MG in NACL 0.9% 250ML 250 ML IV SCH (10:27)
[2016-10-23 14:06] LABS: ISTAT Base Excess -4; ISTAT HCO3 20.5; ISTAT PCO2 32.4 (35-45); ISTAT PH 7.409 (7.35-7.45); ISTAT PO2 103 (80-105); ISTAT SO2 98; ISTAT TCO2 21
--- NOTE | 2016-10-23 14:57 | Progress Note ---
Assessment and Plan This patient was able to be aroused to verbal stimulus. She was able to follow several (but not all) simple commands. She was unable to move her right foot or toes, but was on the left. The right first and second toes continued to desiccate. She has a significant right heel deep tissue injury. Her overall mental status appears to be improving. However, she continues to be tachycardic. She has an ischemic right lower extremity. The tissue has questionable salvageability. She appears to have significant neuro dysfunction. She is at high risk of limb loss. As her condition improves, we can consider vascular surgery options. - Patient Problems (1) Ischemia of right lower extremity Current Visit: Yes Status: Acute (2) DKA (diabetic ketoacidoses) Current Visit: Yes Status: Acute Qualifiers: Diabetes mellitus type: D Diabetes mellitus complication detail: D (3) Acute on chronic renal failure Current Visit: Yes Status: Acute (4) Altered mental status Current Visit: Yes Status: Acute Qualifiers: Altered mental status type: A Coma depth: C Coma timing: C (5) Diabetes Current Visit: No Status: Chronic Qualifiers: Diabetes mellitus type: D Diabetes mellitus complication status: D Diabetes mellitus complication detail: D Diabetic retinopathy severity: D Proliferative retinopathy type: P Diabetes mellitus macular edema: D Diabetes mellitus rn clinical insulin use: D Laterality: L Chronic kidney disease stage: C (6) Dyslipidemia Current Visit: No Status: Chronic (7) Hypertension Current Visit: No Status: Chronic Qualifiers: Hypertension type: H Subjective Date of service: 10/23/16 Principal diagnosis: respiratory failure on mechanical ventilatory support, DKA Interval history: Patient is sleeping well on the vent. She did awaken to verbal stimulus. Objective - Constitutional Vitals: Vital Signs - 12hr 10/23/16 10/23/16 10/23/16 03:00 03:30 04:00 Temperature 99.4 F Pulse Rate 140 H 141 H Pulse Rate [ 110 H From Monitor] Respiratory 20 19 20 Rate Blood Pressure 117/66 114/67 O2 Sat by Pulse 99 Oximetry 10/23/16 10/23/16 10/23/16 05:23 05:42 10:35 Temperature Pulse Rate 120 H 117 H 112 H Pulse Rate [ From Monitor] Respiratory Rate Blood Pressure 128/68 128/68 117/51 O2 Sat by Pulse 100 98 Oximetry 10/23/16 10/23/16 12:05 13:41 Temperature Pulse Rate 100 H 104 H Pulse Rate [ From Monitor] Respiratory 31 H 33 H Rate Blood Pressure 105/49 O2 Sat by Pulse Oximetry General appearance: Present: no acute distress - EENT Eyes: EOM intact ENT: hearing intact - Respiratory Respiratory effort: other (on mechanical ventilation) - Cardiovascular Rhythm: other (tachycardic) Extremity abnormal: other (her right lower extremity continues to be cool from mid calf to the tip of her toes. She is able to move her left lower extremity leg foot and digits to command, but unable to move her right foot or toes.) - Labs CBC & Chem 7: 10/23/16 Unknown 10/23/16 Unknown Labs: Abnormal lab results 10/22/16 10/22/16 10/22/16 Range/Units 14:50 18:16 20:00 WBC (4.5-11.0) K/mm3 RBC (3.65-5.03) M/mm3 Hgb (10.1-14.3) gm/dl Hct (30.3-42.9) % MCV (79-97) fl RDW (13.2-15.2) % Seg Neuts % (Manual) (40.0-70.0) % Lymphocytes % (Manual) (13.4-35.0) % Seg Neutrophils # Man (1.8-7.7) K/mm3 Heparin Anti-Xa Level 1.92 H (0.3-0.7) U.I./ml POC ABG pCO2 (35-45) Chloride (98-107) mmol/L Carbon Dioxide (22-30) mmol/L BUN (7-17) mg/dL Glucose (65-100) mg/dL POC Glucose 193 H (70-105) Calcium (8.4-10.2) mg/dL TSH 0.162 L (0.270-4.200) mlU/mL Crossmatch 10/22/16 10/22/16 10/23/16 Range/Units 20:00 20:00 00:21 WBC 24.1 H (4.5-11.0) K/mm3 RBC 2.58 L (3.65-5.03) M/mm3 Hgb 8.2 L (10.1-14.3) gm/dl Hct 26.4 L (30.3-42.9) % MCV 102 H (79-97) fl RDW (13.2-15.2) % Seg Neuts % (Manual) 74.0 H (40.0-70.0) % Lymphocytes % (Manual) 7.0 L (13.4-35.0) % Seg Neutrophils # Man 17.8 H (1.8-7.7) K/mm3 Heparin Anti-Xa Level (0.3-0.7) U.I./ml POC ABG pCO2 (35-45) Chloride (98-107) mmol/L Carbon Dioxide (22-30) mmol/L BUN (7-17) mg/dL Glucose (65-100) mg/dL POC Glucose 283 H (70-105) Calcium (8.4-10.2) mg/dL TSH (0.270-4.200) mlU/mL Crossmatch See Detail 10/23/16 10/23/16 10/23/16 Range/Units 06:09 12:07 14:01 WBC (4.5-11.0) K/mm3 RBC (3.65-5.03) M/mm3 Hgb (10.1-14.3) gm/dl Hct (30.3-42.9) % MCV (79-97) fl RDW (13.2-15.2) % Seg Neuts % (Manual) (40.0-70.0) % Lymphocytes % (Manual) (13.4-35.0) % Seg Neutrophils # Man (1.8-7.7) K/mm3 Heparin Anti-Xa Level (0.3-0.7) U.I./ml POC ABG pCO2 32.4 L (35-45) Chloride (98-107) mmol/L Carbon Dioxide (22-30) mmol/L BUN (7-17) mg/dL Glucose (65-100) mg/dL POC Glucose 241 H 340 H (70-105) Calcium (8.4-10.2) mg/dL TSH (0.270-4.200) mlU/mL Crossmatch 10/23/16 10/23/16 10/23/16 Range/Units Unknown Unknown Unknown WBC 22.6 H (4.5-11.0) K/mm3 RBC 3.26 L (3.65-5.03) M/mm3 Hgb (10.1-14.3) gm/dl Hct (30.3-42.9) % MCV (79-97) fl RDW 17.1 H (13.2-15.2) % Seg Neuts % (Manual) (40.0-70.0) % Lymphocytes % (Manual) 11.0 L (13.4-35.0) % Seg Neutrophils # Man 14.0 H (1.8-7.7) K/mm3 Heparin Anti-Xa Level 0.15 L (0.3-0.7) U.I./ml POC ABG pCO2 (35-45) Chloride 111.2 H (98-107) mmol/L Carbon Dioxide 20 L (22-30) mmol/L BUN 25 H (7-17) mg/dL Glucose 227 H (65-100) mg/dL POC Glucose (70-105) Calcium 7.1 L (8.4-10.2) mg/dL TSH (0.270-4.200) mlU/mL Crossmatch
[2016-10-23] MEDS: LEVEMIR SUB-Q SCH (15:28)
--- NOTE | 2016-10-23 19:03 | Progress Note ---
Assessment and Plan Assessment and plan: 66-year-old woman who presented with lethargy and altered mental status she deteriorated and was intubated and in emergency room, she was managed for DKA and she also developed sepsis due to UTI and right lower extremity ischemia 1. Acute respiratory failure with hypercapnia Continue ventilator, failed weaning trial 2. Diabetes DKA has now resolved, continue SubQ insulin 3. Sepsis Suspected due to UTI, urine has only grown Paula, sputum cultures grew group B strep, continue broad-spectrum antibiotics, infectious disease input appreciated 4. 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 Hypokalemia replete IV 6. Toxic metabolic encephalopathy- improved. 7. LUCY- present on admissions. likely vasomotor 8. Tachycardia- continue BB , if no improvement will add cardiology consultation Given her multiple medical illnesses, her prognosis is quite poor Critical care time 31 minutes History Interval history: Patient seen and examined, remains intubated. responding my nodding head to questions. Hospitalist Physical - Physical exam Narrative exam: VITAL SIGNS: Reviewed. GENERAL: The patient appeared well nourished and normally developed. Vital signs as documented. HEAD: No signs of head trauma. EYES: Pupils are equal. Extraocular motions intact. EARS: Hearing grossly intact. MOUTH: ETT NECK: No adenopathy, no JVD. CHEST: Chest with diminshed CARDIAC: Regular rate and rhythm. S1 and S2, without murmurs, gallops, or rubs. VASCULAR: trace Edema. Peripheral pulses not palpable at the right lower ext ABDOMEN: Soft, without detectable tenderness. No sign of distention. No rebound or guarding, and no masses palpated. Bowel Sounds normal. MUSCULOSKELETAL: Good range of motion of all major joints. Extremities cyanosis to right lower ext. NEUROLOGIC EXAM: follows command. PSYCHIATRIC: unable to assess. SKIN: cold at the right lower ext - Constitutional Vitals: Temp Pulse Resp BP Pulse Ox 100.2 F H 117 H 11 L 143/84 100 10/23/16 16:00 10/23/16 18:52 10/23/16 18:01 10/23/16 18:52 10/23/16 18:01 General appearance: Present: no acute distress Results - Labs CBC & Chem 7: 10/24/16 11:00 10/23/16 Unknown Labs: Laboratory Last Values WBC 22.6 K/mm3 (4.5-11.0) H 10/23/16 Unknown RBC 3.26 M/mm3 (3.65-5.03) L 10/23/16 Unknown Hgb 10.1 gm/dl (10.1-14.3) 10/23/16 Unknown Hct 31.5 % (30.3-42.9) 10/23/16 Unknown MCV 97 fl (79-97) D 10/23/16 Unknown MCH 31 pg (28-32) 10/23/16 Unknown MCHC 32 % (30-34) 10/23/16 Unknown RDW 17.1 % (13.2-15.2) H 10/23/16 Unknown Plt Count 391 K/mm3 (140-440) 10/23/16 Unknown Lymph % (Auto) [employer]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 10/21/16 05:00 [place] % (Auto) Metal [employer]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 10/21/16 05:00 Eos % (Auto) Metal [employer]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 10/21/16 05:00 Baso % (Auto) 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 10/21/16 05:00 Lymph # 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 10/21/16 05:00 [place] # [employer]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 10/21/16 05:00 Eos # Metal Dr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 10/21/16 05:00 Baso # [employer]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 10/21/16 05:00 Add Manual Diff Complete 10/23/16 Unknown Total Counted 100 10/23/16 Unknown Seg Neutrophils % [employer]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 10/21/16 05:00 Seg Neuts % (Manual) 62.0 % (40.0-70.0) 10/23/16 Unknown Band Neutrophils % 25.0 % 10/23/16 Unknown Lymphocytes % (Manual) 11.0 % (13.4-35.0) L 10/23/16 Unknown Reactive Lymphs % (Man) 0 % 10/23/16 Unknown Monocytes % (Manual) 2.0 % (0.0-7.3) 10/23/16 Unknown Eosinophils % (Manual) 0 % (0.0-4.3) 10/23/16 Unknown Basophils % (Manual) 0 % (0.0-1.8) 10/23/16 Unknown Metamyelocytes % 0 % 10/23/16 Unknown Myelocytes % 0 % 10/23/16 Unknown Promyelocytes % 0 % 10/23/16 Unknown Blast Cells % 0 % 10/23/16 Unknown Nucleated RBC % Not Reportable 10/23/16 Unknown Seg Neutrophils # Metal Dr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 10/21/16 05:00 Seg Neutrophils # Man 14.0 K/mm3 (1.8-7.7) H 10/23/16 Unknown Band Neutrophils # 5.7 K/mm3 10/23/16 Unknown Lymphocytes # (Manual) 2.5 K/mm3 (1.2-5.4) 10/23/16 Unknown Abs React Lymphs (Man) 0.0 K/mm3 10/23/16 Unknown Monocytes # (Manual) 0.5 K/mm3 (0.0-0.8) 10/23/16 Unknown Eosinophils # (Manual) 0.0 K/mm3 (0.0-0.4) 10/23/16 Unknown Basophils # (Manual) 0.0 K/mm3 (0.0-0.1) 10/23/16 Unknown Metamyelocytes # 0.0 K/mm3 10/23/16 Unknown Myelocytes # 0.0 K/mm3 10/23/16 Unknown Promyelocytes # 0.0 K/mm3 10/23/16 Unknown Blast Cells # 0.0 K/mm3 10/23/16 Unknown WBC Morphology Not Reportable 10/23/16 Unknown Hypersegmented Neuts Not Reportable 10/23/16 Unknown Hyposegmented Neuts Not Reportable 10/23/16 Unknown Hypogranular Neuts Not Reportable 10/23/16 Unknown Hypersegmented Polys TNR 10/17/16 07:08 Smudge Cells Not Reportable 10/23/16 Unknown Toxic Granulation Not Reportable 10/23/16 Unknown Toxic Vacuolation Not Reportable 10/23/16 Unknown Dohle Bodies Not Reportable 10/23/16 Unknown Pelger-Huet Anomaly Not Reportable 10/23/16 Unknown Alka Rods Not Reportable 10/23/16 Unknown Platelet Estimate Appears normal 10/23/16 Unknown Clumped Platelets Not Reportable 10/23/16 Unknown Plt Clumps, EDTA Not Reportable 10/23/16 Unknown Large Platelets Rare 10/23/16 Unknown Giant Platelets Not Reportable 10/23/16 Unknown Platelet Satelliting Not Reportable 10/23/16 Unknown Plt Morphology Comment Not Reportable 10/23/16 Unknown RBC Morphology Not Reportable 10/23/16 Unknown Dimorphic RBCs Not Reportable 10/23/16 Unknown Polychromasia Few 10/23/16 Unknown Hypochromasia 1+ 10/23/16 Unknown Poikilocytosis Few 10/23/16 Unknown Basophilic Stippling TNR 10/17/16 07:08 Anisocytosis 1+ 10/23/16 Unknown Microcytosis Not Reportable 10/23/16 Unknown Macrocytosis Not Reportable 10/23/16 Unknown Spherocytes Not Reportable 10/23/16 Unknown Pappenheimer Bodies Not Reportable 10/23/16 Unknown Sickle Cells Not Reportable 10/23/16 Unknown Target Cells Not Reportable 10/23/16 Unknown Tear Drop Cells Not Reportable 10/23/16 Unknown Ovalocytes Not Reportable 10/23/16 Unknown Stomatocytes Rare 10/22/16 04:20 Helmet Cells Not Reportable 10/23/16 Unknown Higgins-Hepburn Bodies Not Reportable 10/23/16 Unknown [place] Rings Not Reportable 10/23/16 Unknown Jeannette Cells Not Reportable 10/23/16 Unknown Bite Cells Not Reportable 10/23/16 Unknown Crenated Cell Not Reportable 10/23/16 Unknown Elliptocytes Not Reportable 10/23/16 Unknown Acanthocytes (Spur) Not Reportable 10/23/16 Unknown Rouleaux Not Reportable 10/23/16 Unknown Hemoglobin C Crystals Not Reportable 10/23/16 Unknown Schistocytes Not Reportable 10/23/16 Unknown Malaria parasites Not Reportable 10/23/16 Unknown David Bodies Not Reportable 10/23/16 Unknown Hem Pathologist Commnt No 10/23/16 Unknown PT 16.4 Sec. (12.2-14.9) H 10/17/16 16:07 INR 1.33 (0.87-1.13) H 10/17/16 16:07 APTT 38.8 Sec. (24.2-36.6) H 10/17/16 16:07 Heparin Anti-Xa Level 0.15 U.I./ml (0.3-0.7) L 10/23/16 Unknown POC ABG pH 7.409 (7.35-7.45) 10/23/16 14:01 POC ABG pCO2 32.4 (35-45) L 10/23/16 14:01 POC ABG pO2 103 (80-105) 10/23/16 14:01 POC ABG HCO3 20.5 10/23/16 14:01 POC ABG Total CO2 21 10/23/16 14:01 POC ABG O2 Sat 98 10/23/16 14:01 POC ABG Base Excess -4 10/23/16 14:01 VBG pH 7.020 (7.320-7.420) L* 10/13/16 04:22 FiO2 25 % 10/23/16 14:01 Sodium 142 mmol/L (137-145) 10/23/16 Unknown Potassium 4.2 mmol/L (3.6-5.0) D 10/23/16 Unknown Chloride 111.2 mmol/L (98-107) H 10/23/16 Unknown Carbon Dioxide 20 mmol/L (22-30) L 10/23/16 Unknown Anion Gap 15 mmol/L 10/23/16 Unknown BUN 25 mg/dL (7-17) H 10/23/16 Unknown Creatinine 0.9 mg/dL (0.7-1.2) 10/23/16 Unknown Estimated GFR > 60 ml/min 10/23/16 Unknown BUN/Creatinine Ratio 27.77 % 10/23/16 Unknown Glucose 227 mg/dL (65-100) H 10/23/16 Unknown POC Glucose 245 (70-105) H 10/23/16 17:59 Osmolality 332 Mosm/kg 10/14/16 07:03 Lactic Acid 1.8 mmol/L (0.7-2.0) 10/14/16 07:03 Calcium 7.1 mg/dL (8.4-10.2) L 10/23/16 Unknown Phosphorus 2.7 mg/dL (2.5-4.5) D 10/21/16 Unknown Magnesium 1.9 mg/dL (1.7-2.3) 10/22/16 04:20 Total Bilirubin 0.5 mg/dL (0.1-1.2) 10/15/16 04:40 AST 79 units/L (5-40) H 10/15/16 04:40 ALT 27 units/L (7-56) 10/15/16 04:40 Alkaline Phosphatase 80 units/L (35-129) 10/15/16 04:40 Ammonia 35.0 umol/L (25-60) 10/13/16 05:40 Total Creatine Kinase 107 units/L (30-135) 10/13/16 04:22 CK-MB (CK-2) 3.1 ng/mL (0.0-4.0) 10/13/16 04:22 CK-MB (CK-2) Rel Index 2.8 (0-4) 10/13/16 04:22 Troponin T < 0.010 ng/mL (0.00-0.029) 10/14/16 18:55 C-Reactive Protein 10.50 mg/dL (0.00-1.30) H 10/13/16 16:14 Total Protein 5.5 g/dL (6.3-8.2) L 10/15/16 04:40 Albumin 3.0 g/dL (3.9-5) L 10/15/16 04:40 Albumin/Globulin Ratio 1.2 % 10/15/16 04:40 Lipase 143 units/L (13-60) H 10/16/16 04:14 Vitamin B12 976.8 pg/mL (211-911) H 10/22/16 10:25 TSH 0.162 mlU/mL (0.270-4.200) L 10/22/16 14:50 Free T4 0.77 ng/dL (0.76-1.46) 10/22/16 14:50 Urine Color Yellow (Yellow) 10/15/16 11:05 Urine Turbidity Cloudy (Clear) 10/15/16 11:05 Urine pH 5.0 (5.0-7.0) 10/15/16 11:05 Ur Specific [place] 1.009 (1.003-1.030) 10/15/16 11:05 Urine Protein 30 mg/dl mg/dL (Negative) 10/15/16 11:05 Urine Glucose (UA) 150 mg/dL (Negative) 10/15/16 11:05 Urine Ketones Neg mg/dL (Negative) 10/15/16 11:05 Urine Blood Lg (Negative) 10/15/16 11:05 Urine Nitrite Neg (Negative) 10/15/16 11:05 Urine Bilirubin Neg (Negative) 10/15/16 11:05 Urine Urobilinogen < 2.0 mg/dL (<2.0) 10/15/16 11:05 Ur Leukocyte Esterase Neg (Negative) 10/15/16 11:05 Urine WBC (Auto) 7.0 /HPF (0.0-6.0) H 10/15/16 11:05 Urine RBC (Auto) 7.0 /HPF (0.0-6.0) 10/15/16 11:05 U Epithel Cells (Auto) 1.0 /HPF (0-13.0) 10/15/16 11:05 Urine Mucus Few /HPF 10/15/16 11:05 Urine Yeast (Budding) 2+ /HPF 10/15/16 11:05 Urine Osmolality 487 Mosm/kg 10/13/16 Unknown Urine Creatinine < 4.2 mg/dL (0.1-20.0) 10/13/16 Unknown Protein/Creatinin Ratio 0.00 10/13/16 Unknown Urine Sodium 10 mEq/L 10/13/16 Unknown Urine Potassium 1.00 mEq/L 10/13/16 Unknown Urine Chloride 10.0 mEq/L (110-250) L 10/13/16 Unknown Urine Total Protein < 4 mg/dL (5-11.8) L 10/13/16 Unknown Vancomycin Trough 17.7 ug/mL (5.0-20.0) 10/22/16 10:25 Ketones 107.3 mg/dL (0.2-2.8) H 10/13/16 04:22 Blood Type A POSITIVE 10/22/16 20:00 Antibody Screen Negative 10/22/16 20:00 Crossmatch See Detail 10/22/16 20:00
--- NOTE | 2016-10-23 20:46 | Progress Note ---
Subjective Date of service: 10/23/16 Principal diagnosis: respiratory failure on mechanical ventilatory support, DKA Interval history: Awake. no new issues. Vital signs - afebrile CHEST - [employer] [facility] - S1S2 ABD - BS_ LABS Reviewed. stool clostridium difficile positive. See lab section ASSESSMENT 1. Sepsis 2. dka 3. resp failure 4. htn 5. clostridium difficile colitis RECOMMENDATION 1. cbc/bmp in am 2. continue current care. Objective - Constitutional Vitals: Vital Signs Temp Pulse Resp BP Pulse Ox 100.2 F H 117 H 11 L 143/84 100 10/23/16 16:00 10/23/16 18:52 10/23/16 18:01 10/23/16 18:52 10/23/16 18:01 Temperature -Last 24 Hours Temperature 100.2 F Temperature 99.8 F Temperature 102.5 F Temperature 99.4 F Temperature 97.4 F Temperature 98.7 F Temperature 98.1 F Temperature 98.9 F Temperature 98.9 F Temperature 99.1 F Temperature 99.1 F Temperature 99.4 F Temperature 99.1 F Temperature 99.4 F Temperature 99.4 F Temperature 99.4 F Temperature 100.7 F Temperature 100.7 F - Labs CBC & Chem 7: 10/23/16 Unknown 10/23/16 Unknown Labs: Abnormal lab results 10/22/16 10/22/16 10/23/16 Range/Units 20:00 20:00 00:21 WBC (4.5-11.0) K/mm3 RBC (3.65-5.03) M/mm3 RDW (13.2-15.2) % Seg Neuts % (Manual) 74.0 H (40.0-70.0) % Lymphocytes % (Manual) 7.0 L (13.4-35.0) % Seg Neutrophils # Man 17.8 H (1.8-7.7) K/mm3 Heparin Anti-Xa Level (0.3-0.7) U.I./ml POC ABG pCO2 (35-45) Chloride (98-107) mmol/L Carbon Dioxide (22-30) mmol/L BUN (7-17) mg/dL Glucose (65-100) mg/dL POC Glucose 283 H (70-105) Calcium (8.4-10.2) mg/dL Crossmatch See Detail 10/23/16 10/23/16 10/23/16 Range/Units 06:09 12:07 14:01 WBC (4.5-11.0) K/mm3 RBC (3.65-5.03) M/mm3 RDW (13.2-15.2) % Seg Neuts % (Manual) (40.0-70.0) % Lymphocytes % (Manual) (13.4-35.0) % Seg Neutrophils # Man (1.8-7.7) K/mm3 Heparin Anti-Xa Level (0.3-0.7) U.I./ml POC ABG pCO2 32.4 L (35-45) Chloride (98-107) mmol/L Carbon Dioxide (22-30) mmol/L BUN (7-17) mg/dL Glucose (65-100) mg/dL POC Glucose 241 H 340 H (70-105) Calcium (8.4-10.2) mg/dL Crossmatch 10/23/16 10/23/16 10/23/16 Range/Units 16:00 17:59 Unknown WBC 22.6 H (4.5-11.0) K/mm3 RBC 3.26 L (3.65-5.03) M/mm3 RDW 17.1 H (13.2-15.2) % Seg Neuts % (Manual) (40.0-70.0) % Lymphocytes % (Manual) 11.0 L (13.4-35.0) % Seg Neutrophils # Man 14.0 H (1.8-7.7) K/mm3 Heparin Anti-Xa Level 0.19 L (0.3-0.7) U.I./ml POC ABG pCO2 (35-45) Chloride (98-107) mmol/L Carbon Dioxide (22-30) mmol/L BUN (7-17) mg/dL Glucose (65-100) mg/dL POC Glucose 245 H (70-105) Calcium (8.4-10.2) mg/dL Crossmatch 10/23/16 10/23/16 Range/Units Unknown Unknown WBC (4.5-11.0) K/mm3 RBC (3.65-5.03) M/mm3 RDW (13.2-15.2) % Seg Neuts % (Manual) (40.0-70.0) % Lymphocytes % (Manual) (13.4-35.0) % Seg Neutrophils # Man (1.8-7.7) K/mm3 Heparin Anti-Xa Level 0.15 L (0.3-0.7) U.I./ml POC ABG pCO2 (35-45) Chloride 111.2 H (98-107) mmol/L Carbon Dioxide 20 L (22-30) mmol/L BUN 25 H (7-17) mg/dL Glucose 227 H (65-100) mg/dL POC Glucose (70-105) Calcium 7.1 L (8.4-10.2) mg/dL Crossmatch
[2016-10-24] MEDS: AZACTAM/NS 1 GM/50 ML 1 GM/50 ML VIAL IV SCH ×3 (07:00→22:09)
[2016-10-24] MEDS: LOPRESSOR IV SCH ×4 (07:01→17:35)
[2016-10-24] MEDS: FLAGYL PO SCH ×3 (07:01→22:11)
[2016-10-24] MEDS: VANCOMYCIN VIAL 1,250 MG in NACL 0.9% 250ML 250 ML IV SCH (10:30)
[2016-10-24] MEDS: PEPCID PO SCH ×2 (10:51→22:10)
--- NOTE | 2016-10-24 10:51 | Progress Note ---
Assessment and Plan - Patient Problems (1) Acute respiratory failure with hypercapnia Current Visit: Yes Status: Acute Plan to address problem: - continue aspiration precautions / VAP bundles - continue bronchodilators and pulmonary toilet - wean oxygen to keep sats > 94% - resume graded weaning at Psupp of 20 cmH2O - ETT day # 12-13 and will need a tracheostomy - continue daily PSV trials in meantime (2) Altered mental status Current Visit: Yes Status: Acute Qualifiers: Altered mental status type: A Coma depth: C Coma timing: C Plan to address problem: - no active seizures - following clinically - seen by neurology and will follow their recommendations - no seizures on EEG (3) LUCY (acute kidney injury) Current Visit: Yes Status: Acute Plan to address problem: - continue free water flushes - follow I's & O's - improving numbers (4) DKA (diabetic ketoacidoses) Current Visit: Yes Status: Acute Qualifiers: Diabetes mellitus type: D Diabetes mellitus complication detail: D Plan to address problem: - off IV insulin - continue SSI - enteral nutrition (5) Sepsis Current Visit: No Status: Acute Qualifiers: Sepsis type: S Plan to address problem: - continue anti-infectives per ID recs - follow clinically - trend lactate and CRP prn - treat C-diff empirically (6) Tachycardia Current Visit: Yes Status: Acute Plan to address problem: - will schedule metoprolol +/- cardizem - treat pain prn (7) Discharge planning issues Current Visit: No Status: Acute Plan to address problem: - will consult for tracheostomy ...remains critically ill on life sustaining treatments including MVS and at high risk for further deterioration including ...31' CCT Subjective Date of service: 10/24/16 Principal diagnosis: respiratory failure on mechanical ventilatory support, DKA Interval history: Seen and examined at bedside; 24 hour events reviewed; nursing and respiratory care staff consulted; no adverse overnight events reported to me; remains tachycardic with pulse up to 160/min; she denies acute chest pains or palpitations; she appears delirious; she has failed SBT's again today Objective Vital Signs - 12hr 10/23/16 10/24/16 10/24/16 23:00 00:00 00:58 Temperature 98.9 F Pulse Rate 100 H 88 98 H Pulse Rate [ 110 H Apical] Pulse Rate [ 110 H From Monitor] Respiratory 19 18 Rate Blood Pressure 122/56 117/58 O2 Sat by Pulse 99 99 100 Oximetry 10/24/16 10/24/16 10/24/16 01:00 02:00 03:00 Temperature Pulse Rate 81 84 79 Pulse Rate [ Apical] Pulse Rate [ From Monitor] Respiratory 18 18 18 Rate Blood Pressure 102/51 114/55 114/57 O2 Sat by Pulse 98 98 Oximetry 10/24/16 10/24/16 10/24/16 03:28 04:00 04:01 Temperature 98 F 99.6 F Pulse Rate 107 H Pulse Rate [ 79 Apical] Pulse Rate [ 79 From Monitor] Respiratory 18 20 Rate Blood Pressure 168/92 O2 Sat by Pulse 99 100 Oximetry 10/24/16 10/24/16 10/24/16 05:00 06:00 06:18 Temperature Pulse Rate 110 H 86 97 H Pulse Rate [ Apical] Pulse Rate [ From Monitor] Respiratory 24 18 Rate Blood Pressure 160/71 108/56 106/56 O2 Sat by Pulse 100 100 Oximetry 10/24/16 10/24/16 10/24/16 07:00 07:01 08:00 Temperature 99.9 F H Pulse Rate 88 96 H Pulse Rate [ Apical] Pulse Rate [ From Monitor] Respiratory 18 Rate Blood Pressure 132/62 O2 Sat by Pulse 100 100 Oximetry 10/24/16 10/24/16 10/24/16 08:01 09:00 09:25 Temperature Pulse Rate 102 H 94 H 99 H Pulse Rate [ Apical] Pulse Rate [ From Monitor] Respiratory 13 18 Rate Blood Pressure 135/67 145/67 145/67 O2 Sat by Pulse 100 100 100 Oximetry 10/24/16 10:01 Temperature Pulse Rate 153 H Pulse Rate [ Apical] Pulse Rate [ From Monitor] Respiratory 12 Rate Blood Pressure 139/82 O2 Sat by Pulse 100 Oximetry Constitutional: no acute distress, appears uncomfortable, other (delirious) Eyes: non-icteric ENT: oropharynx moist Neck: supple, no lymphadenopathy Effort: mildly labored Ascultation: Bilateral: diminished breath sounds, rales (bases) Cardiovascular: regular rate and rhythm, other (tachycardia) Gastrointestinal: normoactive bowel sounds, soft, non-tender, non-distended Integumentary: normal Extremities: no cyanosis, no edema, no ischemia or petechiae, other (cold right foot with digital ischemia) Neurologic: non-focal exam (grossly), unable to assess CBC and BMP: 10/24/16 11:00 10/23/16 Unknown ABG, PT/INR, D-dimer: ABG POC ABG pH 7.409 (7.35-7.45) 10/23/16 14:01 POC ABG pCO2 32.4 (35-45) L 10/23/16 14:01 POC ABG pO2 103 (80-105) 10/23/16 14:01 POC ABG HCO3 20.5 10/23/16 14:01 POC ABG Total CO2 21 10/23/16 14:01 POC ABG O2 Sat 98 10/23/16 14:01 PT/INR, D-dimer PT 16.4 Sec. (12.2-14.9) H 10/17/16 16:07 INR 1.33 (0.87-1.13) H 10/17/16 16:07 Abnormal lab findings: Abnormal Labs 10/13/16 10/13/16 10/13/16 06:38 06:38 07:23 WBC RBC Hgb Hct MCV RDW Plt Count Lymph % (Auto) Dale % (Auto) Dale # Seg Neutrophils % Seg Neuts % (Manual) Lymphocytes % (Manual) Monocytes % (Manual) Seg Neutrophils # Seg Neutrophils # Man Lymphocytes # (Manual) Monocytes # (Manual) Eosinophils # (Manual) Basophils # (Manual) PT INR APTT Heparin Anti-Xa Level POC ABG pH POC ABG pCO2 POC ABG pO2 Sodium Potassium 6.2 H* Chloride Carbon Dioxide 8 L* BUN 85 H Creatinine 2.8 H Glucose 602 H* POC Glucose 495 H Calcium 7.9 L Phosphorus 6.9 H D Magnesium 3.0 H AST C-Reactive Protein Total Protein Albumin Lipase Vitamin B12 TSH Urine WBC (Auto) Urine Chloride Urine Total Protein Crossmatch 10/13/16 10/13/16 10/13/16 08:49 08:55 10:12 WBC RBC Hgb Hct MCV RDW Plt Count Lymph % (Auto) Dale % (Auto) Dale # Seg Neutrophils % Seg Neuts % (Manual) Lymphocytes % (Manual) Monocytes % (Manual) Seg Neutrophils # Seg Neutrophils # Man Lymphocytes # (Manual) Monocytes # (Manual) Eosinophils # (Manual) Basophils # (Manual) PT INR APTT Heparin Anti-Xa Level POC ABG pH POC ABG pCO2 POC ABG pO2 Sodium Potassium 5.6 H Chloride Carbon Dioxide 11 L BUN 77 H Creatinine 2.7 H Glucose 457 H POC Glucose > 500 H 424 H Calcium 8.0 L Phosphorus Magnesium AST C-Reactive Protein Total Protein Albumin Lipase Vitamin B12 TSH Urine WBC (Auto) Urine Chloride Urine Total Protein Crossmatch 10/13/16 10/13/16 10/13/16 10:44 11:22 12:20 WBC RBC Hgb Hct MCV RDW Plt Count Lymph % (Auto) Dale % (Auto) Dale # Seg Neutrophils % Seg Neuts % (Manual) Lymphocytes % (Manual) Monocytes % (Manual) Seg Neutrophils # Seg Neutrophils # Man Lymphocytes # (Manual) Monocytes # (Manual) Eosinophils # (Manual) Basophils # (Manual) PT INR APTT Heparin Anti-Xa Level POC ABG pH POC ABG pCO2 POC ABG pO2 Sodium Potassium 5.4 H Chloride Carbon Dioxide 14 L BUN 72 H Creatinine 2.6 H Glucose 383 H POC Glucose 391 H 313 H Calcium 8.2 L Phosphorus Magnesium AST C-Reactive Protein Total Protein Albumin Lipase Vitamin B12 TSH Urine WBC (Auto) Urine Chloride Urine Total Protein Crossmatch 10/13/16 10/13/16 10/13/16 13:32 14:44 15:57 WBC RBC Hgb Hct MCV RDW Plt Count Lymph % (Auto) Dale % (Auto) Dale # Seg Neutrophils % Seg Neuts % (Manual) Lymphocytes % (Manual) Monocytes % (Manual) Seg Neutrophils # Seg Neutrophils # Man Lymphocytes # (Manual) Monocytes # (Manual) Eosinophils # (Manual) Basophils # (Manual) PT INR APTT Heparin Anti-Xa Level POC ABG pH POC ABG pCO2 POC ABG pO2 Sodium Potassium Chloride Carbon Dioxide BUN Creatinine Glucose POC Glucose 296 H 210 H 190 H Calcium Phosphorus Magnesium AST C-Reactive Protein Total Protein Albumin Lipase Vitamin B12 TSH Urine WBC (Auto) Urine Chloride Urine Total Protein Crossmatch 10/13/16 10/13/16 10/13/16 16:14 16:14 17:17 WBC RBC Hgb Hct MCV RDW Plt Count Lymph % (Auto) [place] % (Auto) Dale # Seg Neutrophils % Seg Neuts % (Manual) Lymphocytes % (Manual) Monocytes % (Manual) Seg Neutrophils # Seg Neutrophils # Man Lymphocytes # (Manual) Monocytes # (Manual) Eosinophils # (Manual) Basophils # (Manual) PT INR APTT Heparin Anti-Xa Level POC ABG pH POC ABG pCO2 POC ABG pO2 Sodium Potassium Chloride Carbon Dioxide 17 L BUN 58 H Creatinine 1.8 H Glucose 172 H POC Glucose 193 H Calcium 7.7 L Phosphorus Magnesium AST C-Reactive Protein 10.50 H Total Protein Albumin Lipase Vitamin B12 TSH Urine WBC (Auto) Urine Chloride Urine Total Protein Crossmatch 10/13/16 10/13/16 10/13/16 17:55 18:32 19:41 WBC RBC Hgb Hct MCV RDW Plt Count Lymph % (Auto) [place] % (Auto) Dale # Seg Neutrophils % Seg Neuts % (Manual) Lymphocytes % (Manual) Monocytes % (Manual) Seg Neutrophils # Seg Neutrophils # Man Lymphocytes # (Manual) Monocytes # (Manual) Eosinophils # (Manual) Basophils # (Manual) PT INR APTT Heparin Anti-Xa Level POC ABG pH POC ABG pCO2 30.6 L POC ABG pO2 218 H Sodium Potassium Chloride Carbon Dioxide BUN Creatinine Glucose POC Glucose 192 H 177 H Calcium Phosphorus Magnesium AST C-Reactive Protein Total Protein Albumin Lipase Vitamin B12 TSH Urine WBC (Auto) Urine Chloride Urine Total Protein Crossmatch 10/13/16 10/13/16 10/13/16 20:54 22:07 23:13 WBC RBC Hgb Hct MCV RDW Plt Count Lymph % (Auto) [place] % (Auto) Dale # Seg Neutrophils % Seg Neuts % (Manual) Lymphocytes % (Manual) Monocytes % (Manual) Seg Neutrophils # Seg Neutrophils # Man Lymphocytes # (Manual) Monocytes # (Manual) Eosinophils # (Manual) Basophils # (Manual) PT INR APTT Heparin Anti-Xa Level POC ABG pH POC ABG pCO2 POC ABG pO2 Sodium Potassium Chloride Carbon Dioxide BUN Creatinine Glucose POC Glucose 178 H 160 H 168 H Calcium Phosphorus Magnesium AST C-Reactive Protein Total Protein Albumin Lipase Vitamin B12 TSH Urine WBC (Auto) Urine Chloride Urine Total Protein Crossmatch 10/13/16 10/13/16 10/14/16 23:25 Unknown 00:21 WBC RBC Hgb Hct MCV RDW Plt Count Lymph % (Auto) [place] % (Auto) [place] # Seg Neutrophils % Seg Neuts % (Manual) Lymphocytes % (Manual) Monocytes % (Manual) Seg Neutrophils # Seg Neutrophils # Man Lymphocytes # (Manual) Monocytes # (Manual) Eosinophils # (Manual) Basophils # (Manual) PT INR APTT Heparin Anti-Xa Level POC ABG pH POC ABG pCO2 POC ABG pO2 Sodium 148 H Potassium Chloride 114.6 H Carbon Dioxide 17 L BUN 56 H Creatinine 1.6 H Glucose 151 H POC Glucose 171 H Calcium 7.8 L Phosphorus Magnesium AST C-Reactive Protein Total Protein Albumin Lipase Vitamin B12 TSH Urine WBC (Auto) Urine Chloride 10.0 L Urine Total Protein < 4 L Crossmatch 10/14/16 10/14/16 10/14/16 01:22 02:29 03:30 WBC RBC Hgb Hct MCV RDW Plt Count Lymph % (Auto) [place] % (Auto) [place] # Seg Neutrophils % Seg Neuts % (Manual) Lymphocytes % (Manual) Monocytes % (Manual) Seg Neutrophils # Seg Neutrophils # Man Lymphocytes # (Manual) Monocytes # (Manual) Eosinophils # (Manual) Basophils # (Manual) PT INR APTT Heparin Anti-Xa Level POC ABG pH POC ABG pCO2 POC ABG pO2 Sodium Potassium Chloride Carbon Dioxide BUN Creatinine Glucose POC Glucose 144 H 136 H 143 H Calcium Phosphorus Magnesium AST C-Reactive Protein Total Protein Albumin Lipase Vitamin B12 TSH Urine WBC (Auto) Urine Chloride Urine Total Protein Crossmatch 10/14/16 10/14/16 10/14/16 04:28 05:16 05:44 WBC RBC Hgb Hct MCV RDW Plt Count Lymph % (Auto) [place] % (Auto) [place] # Seg Neutrophils % Seg Neuts % (Manual) Lymphocytes % (Manual) Monocytes % (Manual) Seg Neutrophils # Seg Neutrophils # Man Lymphocytes # (Manual) Monocytes # (Manual) Eosinophils # (Manual) Basophils # (Manual) PT INR APTT Heparin Anti-Xa Level POC ABG pH POC ABG pCO2 28.2 L POC ABG pO2 125 H Sodium Potassium Chloride Carbon Dioxide BUN Creatinine Glucose POC Glucose 133 H 160 H Calcium Phosphorus Magnesium AST C-Reactive Protein Total Protein Albumin Lipase Vitamin B12 TSH Urine WBC (Auto) Urine Chloride Urine Total Protein Crossmatch 10/14/16 10/14/16 10/14/16 06:12 06:45 07:03 WBC RBC Hgb Hct MCV RDW Plt Count Lymph % (Auto) [place] % (Auto) [place] # Seg Neutrophils % Seg Neuts % (Manual) Lymphocytes % (Manual) Monocytes % (Manual) Seg Neutrophils # Seg Neutrophils # Man Lymphocytes # (Manual) Monocytes # (Manual) Eosinophils # (Manual) Basophils # (Manual) PT INR APTT Heparin Anti-Xa Level POC ABG pH POC ABG pCO2 POC ABG pO2 Sodium 149 H Potassium Chloride 115.4 H Carbon Dioxide 17 L BUN 45 H Creatinine 1.5 H Glucose 139 H POC Glucose 149 H Calcium 7.4 L Phosphorus 1.0 L D Magnesium AST C-Reactive Protein Total Protein Albumin Lipase Vitamin B12 TSH Urine WBC (Auto) Urine Chloride Urine Total Protein Crossmatch 10/14/16 10/14/16 10/14/16 07:03 08:02 09:16 WBC RBC Hgb Hct MCV RDW Plt Count Lymph % (Auto) [place] % (Auto) [place] # Seg Neutrophils % Seg Neuts % (Manual) Lymphocytes % (Manual) Monocytes % (Manual) Seg Neutrophils # Seg Neutrophils # Man Lymphocytes # (Manual) Monocytes # (Manual) Eosinophils # (Manual) Basophils # (Manual) PT INR APTT Heparin Anti-Xa Level POC ABG pH POC ABG pCO2 POC ABG pO2 Sodium Potassium Chloride Carbon Dioxide BUN Creatinine Glucose POC Glucose 156 H 158 H Calcium Phosphorus Magnesium AST C-Reactive Protein Total Protein Albumin Lipase 738 H Vitamin B12 TSH Urine WBC (Auto) Urine Chloride Urine Total Protein Crossmatch 10/14/16 10/14/16 10/14/16 10:26 11:03 11:57 WBC RBC Hgb Hct MCV RDW Plt Count Lymph % (Auto) [place] % (Auto) [place] # Seg Neutrophils % Seg Neuts % (Manual) Lymphocytes % (Manual) Monocytes % (Manual) Seg Neutrophils # Seg Neutrophils # Man Lymphocytes # (Manual) Monocytes # (Manual) Eosinophils # (Manual) Basophils # (Manual) PT INR APTT Heparin Anti-Xa Level POC ABG pH 7.198 L POC ABG pCO2 47.5 H POC ABG pO2 Sodium Potassium Chloride Carbon Dioxide BUN Creatinine Glucose POC Glucose 174 H 189 H Calcium Phosphorus Magnesium AST C-Reactive Protein Total Protein Albumin Lipase Vitamin B12 TSH Urine WBC (Auto) Urine Chloride Urine Total Protein Crossmatch 10/14/16 10/14/16 10/14/16 12:02 12:02 13:11 WBC 13.4 H RBC 3.60 L Hgb Hct MCV 98 H D RDW 13.1 L Plt Count Lymph % (Auto) [place] % (Auto) Dale # Seg Neutrophils % Seg Neuts % (Manual) Lymphocytes % (Manual) Monocytes % (Manual) Seg Neutrophils # Seg Neutrophils # Man Lymphocytes # (Manual) Monocytes # (Manual) Eosinophils # (Manual) Basophils # (Manual) PT INR APTT Heparin Anti-Xa Level POC ABG pH POC ABG pCO2 POC ABG pO2 Sodium Potassium Chloride 110.7 H Carbon Dioxide 19 L BUN 38 H Creatinine 1.4 H Glucose 182 H POC Glucose 173 H Calcium 7.5 L Phosphorus Magnesium AST C-Reactive Protein Total Protein Albumin Lipase Vitamin B12 TSH Urine WBC (Auto) Urine Chloride Urine Total Protein Crossmatch 10/14/16 10/14/16 10/14/16 14:24 15:31 16:36 WBC RBC Hgb Hct MCV RDW Plt Count Lymph % (Auto) [place] % (Auto) [place] # Seg Neutrophils % Seg Neuts % (Manual) Lymphocytes % (Manual) Monocytes % (Manual) Seg Neutrophils # Seg Neutrophils # Man Lymphocytes # (Manual) Monocytes # (Manual) Eosinophils # (Manual) Basophils # (Manual) PT INR APTT Heparin Anti-Xa Level POC ABG pH POC ABG pCO2 POC ABG pO2 Sodium Potassium Chloride Carbon Dioxide BUN Creatinine Glucose POC Glucose 123 H 124 H 156 H Calcium Phosphorus Magnesium AST C-Reactive Protein Total Protein Albumin Lipase Vitamin B12 TSH Urine WBC (Auto) Urine Chloride Urine Total Protein Crossmatch 10/14/16 10/14/16 10/14/16 17:43 19:00 20:08 WBC RBC Hgb Hct MCV RDW Plt Count Lymph % (Auto) [place] % (Auto) [place] # Seg Neutrophils % Seg Neuts % (Manual) Lymphocytes % (Manual) Monocytes % (Manual) Seg Neutrophils # Seg Neutrophils # Man Lymphocytes # (Manual) Monocytes # (Manual) Eosinophils # (Manual) Basophils # (Manual) PT INR APTT Heparin Anti-Xa Level POC ABG pH POC ABG pCO2 POC ABG pO2 Sodium Potassium Chloride Carbon Dioxide BUN Creatinine Glucose POC Glucose 154 H 123 H 138 H Calcium Phosphorus Magnesium AST C-Reactive Protein Total Protein Albumin Lipase Vitamin B12 TSH Urine WBC (Auto) Urine Chloride Urine Total Protein Crossmatch 10/14/16 10/14/16 10/14/16 21:17 22:25 23:37 WBC RBC Hgb Hct MCV RDW Plt Count Lymph % (Auto) [place] % (Auto) [place] # Seg Neutrophils % Seg Neuts % (Manual) Lymphocytes % (Manual) Monocytes % (Manual) Seg Neutrophils # Seg Neutrophils # Man Lymphocytes # (Manual) Monocytes # (Manual) Eosinophils # (Manual) Basophils # (Manual) PT INR APTT Heparin Anti-Xa Level POC ABG pH POC ABG pCO2 POC ABG pO2 Sodium Potassium Chloride Carbon Dioxide BUN Creatinine Glucose POC Glucose 148 H 132 H 137 H Calcium Phosphorus Magnesium AST C-Reactive Protein Total Protein Albumin Lipase Vitamin B12 TSH Urine WBC (Auto) Urine Chloride Urine Total Protein Crossmatch 10/15/16 10/15/16 10/15/16 00:49 01:53 03:06 WBC RBC Hgb Hct MCV RDW Plt Count Lymph % (Auto) [place] % (Auto) [place] # Seg Neutrophils % Seg Neuts % (Manual) Lymphocytes % (Manual) Monocytes % (Manual) Seg Neutrophils # Seg Neutrophils # Man Lymphocytes # (Manual) Monocytes # (Manual) Eosinophils # (Manual) Basophils # (Manual) PT INR APTT Heparin Anti-Xa Level POC ABG pH POC ABG pCO2 POC ABG pO2 Sodium Potassium Chloride Carbon Dioxide BUN Creatinine Glucose POC Glucose 132 H 134 H 134 H Calcium Phosphorus Magnesium AST C-Reactive Protein Total Protein Albumin Lipase Vitamin B12 TSH Urine WBC (Auto) Urine Chloride Urine Total Protein Crossmatch 10/15/16 10/15/16 10/15/16 04:40 04:46 06:21 WBC RBC Hgb Hct MCV RDW Plt Count Lymph % (Auto) [place] % (Auto) [place] # Seg Neutrophils % Seg Neuts % (Manual) Lymphocytes % (Manual) Monocytes % (Manual) Seg Neutrophils # Seg Neutrophils # Man Lymphocytes # (Manual) Monocytes # (Manual) Eosinophils # (Manual) Basophils # (Manual) PT INR APTT Heparin Anti-Xa Level POC ABG pH POC ABG pCO2 30.7 L POC ABG pO2 108 H Sodium Potassium Chloride 109.0 H Carbon Dioxide 17 L BUN 27 H Creatinine Glucose 124 H POC Glucose 160 H Calcium 7.5 L Phosphorus Magnesium AST 79 H C-Reactive Protein Total Protein 5.5 L Albumin 3.0 L Lipase Vitamin B12 TSH Urine WBC (Auto) Urine Chloride Urine Total Protein Crossmatch 10/15/16 10/15/16 10/15/16 07:12 08:01 09:03 WBC RBC Hgb Hct MCV RDW Plt Count Lymph % (Auto) [place] % (Auto) [place] # Seg Neutrophils % Seg Neuts % (Manual) Lymphocytes % (Manual) Monocytes % (Manual) Seg Neutrophils # Seg Neutrophils # Man Lymphocytes # (Manual) Monocytes # (Manual) Eosinophils # (Manual) Basophils # (Manual) PT INR APTT Heparin Anti-Xa Level POC ABG pH POC ABG pCO2 POC ABG pO2 Sodium Potassium Chloride Carbon Dioxide BUN Creatinine Glucose POC Glucose 179 H 187 H 165 H Calcium Phosphorus Magnesium AST C-Reactive Protein Total Protein Albumin Lipase Vitamin B12 TSH Urine WBC (Auto) Urine Chloride Urine Total Protein Crossmatch 10/15/16 10/15/16 10/15/16 10:06 10:06 10:07 WBC 12.1 H RBC 3.01 L Hgb 9.7 L Hct 29.6 L MCV 98 H RDW Plt Count 129 L Lymph % (Auto) [place] % (Auto) [place] # Seg Neutrophils % Seg Neuts % (Manual) Lymphocytes % (Manual) Monocytes % (Manual) Seg Neutrophils # Seg Neutrophils # Man Lymphocytes # (Manual) Monocytes # (Manual) Eosinophils # (Manual) Basophils # (Manual) PT INR APTT Heparin Anti-Xa Level POC ABG pH POC ABG pCO2 POC ABG pO2 Sodium Potassium 3.2 L D Chloride 109.6 H Carbon Dioxide 18 L BUN 22 H Creatinine Glucose 127 H POC Glucose 147 H Calcium 7.0 L Phosphorus Magnesium AST C-Reactive Protein Total Protein Albumin Lipase Vitamin B12 TSH Urine WBC (Auto) Urine Chloride Urine Total Protein Crossmatch 10/15/16 10/15/16 10/15/16 11:05 11:06 11:57 WBC RBC Hgb Hct MCV RDW Plt Count Lymph % (Auto) [place] % (Auto) [place] # Seg Neutrophils % Seg Neuts % (Manual) Lymphocytes % (Manual) Monocytes % (Manual) Seg Neutrophils # Seg Neutrophils # Man Lymphocytes # (Manual) Monocytes # (Manual) Eosinophils # (Manual) Basophils # (Manual) PT INR APTT Heparin Anti-Xa Level POC ABG pH 7.305 L POC ABG pCO2 POC ABG pO2 Sodium Potassium Chloride Carbon Dioxide BUN Creatinine Glucose POC Glucose 145 H Calcium Phosphorus Magnesium AST C-Reactive Protein Total Protein Albumin Lipase Vitamin B12 TSH Urine WBC (Auto) 7.0 H Urine Chloride Urine Total Protein Crossmatch 10/15/16 10/15/16 10/15/16 12:04 13:59 15:24 WBC RBC Hgb Hct MCV RDW Plt Count Lymph % (Auto) [place] % (Auto) [place] # Seg Neutrophils % Seg Neuts % (Manual) Lymphocytes % (Manual) Monocytes % (Manual) Seg Neutrophils # Seg Neutrophils # Man Lymphocytes # (Manual) Monocytes # (Manual) Eosinophils # (Manual) Basophils # (Manual) PT INR APTT Heparin Anti-Xa Level POC ABG pH POC ABG pCO2 POC ABG pO2 Sodium Potassium Chloride Carbon Dioxide BUN Creatinine Glucose POC Glucose 123 H 147 H 153 H Calcium Phosphorus Magnesium AST C-Reactive Protein Total Protein Albumin Lipase Vitamin B12 TSH Urine WBC (Auto) Urine Chloride Urine Total Protein Crossmatch 10/15/16 10/15/16 10/15/16 16:30 17:34 18:30 WBC RBC Hgb Hct MCV RDW Plt Count Lymph % (Auto) [place] % (Auto) [place] # Seg Neutrophils % Seg Neuts % (Manual) Lymphocytes % (Manual) Monocytes % (Manual) Seg Neutrophils # Seg Neutrophils # Man Lymphocytes # (Manual) Monocytes # (Manual) Eosinophils # (Manual) Basophils # (Manual) PT INR APTT Heparin Anti-Xa Level POC ABG pH POC ABG pCO2 POC ABG pO2 Sodium Potassium Chloride Carbon Dioxide BUN Creatinine Glucose POC Glucose 223 H 236 H 164 H Calcium Phosphorus Magnesium AST C-Reactive Protein Total Protein Albumin Lipase Vitamin B12 TSH Urine WBC (Auto) Urine Chloride Urine Total Protein Crossmatch 10/15/16 10/15/16 10/15/16 19:14 20:31 21:23 WBC RBC Hgb Hct MCV RDW Plt Count Lymph % (Auto) [place] % (Auto) [place] # Seg Neutrophils % Seg Neuts % (Manual) Lymphocytes % (Manual) Monocytes % (Manual) Seg Neutrophils # Seg Neutrophils # Man Lymphocytes # (Manual) Monocytes # (Manual) Eosinophils # (Manual) Basophils # (Manual) PT INR APTT Heparin Anti-Xa Level POC ABG pH POC ABG pCO2 POC ABG pO2 Sodium Potassium Chloride Carbon Dioxide BUN Creatinine Glucose POC Glucose 138 H 158 H 158 H Calcium Phosphorus Magnesium AST C-Reactive Protein Total Protein Albumin Lipase Vitamin B12 TSH Urine WBC (Auto) Urine Chloride Urine Total Protein Crossmatch 10/15/16 10/15/16 10/16/16 22:04 22:57 00:11 WBC RBC Hgb Hct MCV RDW Plt Count Lymph % (Auto) [place] % (Auto) [place] # Seg Neutrophils % Seg Neuts % (Manual) Lymphocytes % (Manual) Monocytes % (Manual) Seg Neutrophils # Seg Neutrophils # Man Lymphocytes # (Manual) Monocytes # (Manual) Eosinophils # (Manual) Basophils # (Manual) PT INR APTT Heparin Anti-Xa Level POC ABG pH POC ABG pCO2 POC ABG pO2 Sodium Potassium Chloride Carbon Dioxide BUN Creatinine Glucose POC Glucose 168 H 213 H 166 H Calcium Phosphorus Magnesium AST C-Reactive Protein Total Protein Albumin Lipase Vitamin B12 TSH Urine WBC (Auto) Urine Chloride Urine Total Protein Crossmatch 10/16/16 10/16/16 10/16/16 01:16 02:32 03:38 WBC RBC Hgb Hct MCV RDW Plt Count Lymph % (Auto) [place] % (Auto) [place] # Seg Neutrophils % Seg Neuts % (Manual) Lymphocytes % (Manual) Monocytes % (Manual) Seg Neutrophils # Seg Neutrophils # Man Lymphocytes # (Manual) Monocytes # (Manual) Eosinophils # (Manual) Basophils # (Manual) PT INR APTT Heparin Anti-Xa Level POC ABG pH POC ABG pCO2 POC ABG pO2 Sodium Potassium Chloride Carbon Dioxide BUN Creatinine Glucose POC Glucose 171 H 164 H 147 H Calcium Phosphorus Magnesium AST C-Reactive Protein Total Protein Albumin Lipase Vitamin B12 TSH Urine WBC (Auto) Urine Chloride Urine Total Protein Crossmatch 10/16/16 10/16/16 10/16/16 04:14 04:14 04:49 WBC RBC Hgb Hct MCV RDW Plt Count Lymph % (Auto) [place] % (Auto) [place] # Seg Neutrophils % Seg Neuts % (Manual) Lymphocytes % (Manual) Monocytes % (Manual) Seg Neutrophils # Seg Neutrophils # Man Lymphocytes # (Manual) Monocytes # (Manual) Eosinophils # (Manual) Basophils # (Manual) PT INR APTT Heparin Anti-Xa Level POC ABG pH POC ABG pCO2 POC ABG pO2 Sodium 147 H Potassium Chloride 110.9 H Carbon Dioxide 19 L BUN Creatinine Glucose 139 H POC Glucose 144 H Calcium 7.3 L Phosphorus 2.3 L Magnesium AST C-Reactive Protein Total Protein Albumin Lipase 143 H Vitamin B12 TSH Urine WBC (Auto) Urine Chloride Urine Total Protein Crossmatch 10/16/16 10/16/16 10/16/16 05:03 05:41 05:58 WBC 16.5 H RBC 3.36 L Hgb Hct MCV 98 H RDW 13.1 L Plt Count Lymph % (Auto) 8.5 L [place] % (Auto) 7.6 H [place] # 1.3 H Seg Neutrophils % 83.3 H Seg Neuts % (Manual) Lymphocytes % (Manual) Monocytes % (Manual) Seg Neutrophils # 13.8 H Seg Neutrophils # Man Lymphocytes # (Manual) Monocytes # (Manual) Eosinophils # (Manual) Basophils # (Manual) PT INR APTT Heparin Anti-Xa Level POC ABG pH POC ABG pCO2 30.7 L POC ABG pO2 128 H Sodium Potassium Chloride Carbon Dioxide BUN Creatinine Glucose POC Glucose 131 H Calcium Phosphorus Magnesium AST C-Reactive Protein Total Protein Albumin Lipase Vitamin B12 TSH Urine WBC (Auto) Urine Chloride Urine Total Protein Crossmatch 10/16/16 10/16/16 10/16/16 06:32 09:27 09:35 WBC RBC Hgb Hct MCV RDW Plt Count Lymph % (Auto) Dale % (Auto) Dale # Seg Neutrophils % Seg Neuts % (Manual) Lymphocytes % (Manual) Monocytes % (Manual) Seg Neutrophils # Seg Neutrophils # Man Lymphocytes # (Manual) Monocytes # (Manual) Eosinophils # (Manual) Basophils # (Manual) PT INR APTT Heparin Anti-Xa Level POC ABG pH POC ABG pCO2 32.8 L POC ABG pO2 137 H Sodium Potassium Chloride Carbon Dioxide BUN Creatinine Glucose POC Glucose 121 H 150 H Calcium Phosphorus Magnesium AST C-Reactive Protein Total Protein Albumin Lipase Vitamin B12 TSH Urine WBC (Auto) Urine Chloride Urine Total Protein Crossmatch 10/16/16 10/16/16 10/16/16 10:47 13:27 14:24 WBC RBC Hgb Hct MCV RDW Plt Count Lymph % (Auto) [place] % (Auto) [place] # Seg Neutrophils % Seg Neuts % (Manual) Lymphocytes % (Manual) Monocytes % (Manual) Seg Neutrophils # Seg Neutrophils # Man Lymphocytes # (Manual) Monocytes # (Manual) Eosinophils # (Manual) Basophils # (Manual) PT INR APTT Heparin Anti-Xa Level POC ABG pH POC ABG pCO2 POC ABG pO2 Sodium Potassium Chloride Carbon Dioxide BUN Creatinine Glucose POC Glucose 184 H 171 H 174 H Calcium Phosphorus Magnesium AST C-Reactive Protein Total Protein Albumin Lipase Vitamin B12 TSH Urine WBC (Auto) Urine Chloride Urine Total Protein Crossmatch 10/16/16 10/16/16 10/16/16 15:48 16:26 18:17 WBC RBC Hgb Hct MCV RDW Plt Count Lymph % (Auto) [place] % (Auto) [place] # Seg Neutrophils % Seg Neuts % (Manual) Lymphocytes % (Manual) Monocytes % (Manual) Seg Neutrophils # Seg Neutrophils # Man Lymphocytes # (Manual) Monocytes # (Manual) Eosinophils # (Manual) Basophils # (Manual) PT INR APTT Heparin Anti-Xa Level POC ABG pH POC ABG pCO2 POC ABG pO2 Sodium Potassium Chloride Carbon Dioxide BUN Creatinine Glucose POC Glucose 205 H 204 H 234 H Calcium Phosphorus Magnesium AST C-Reactive Protein Total Protein Albumin Lipase Vitamin B12 TSH Urine WBC (Auto) Urine Chloride Urine Total Protein Crossmatch 10/16/16 10/16/16 10/16/16 19:40 20:33 21:36 WBC RBC Hgb Hct MCV RDW Plt Count Lymph % (Auto) [place] % (Auto) [place] # Seg Neutrophils % Seg Neuts % (Manual) Lymphocytes % (Manual) Monocytes % (Manual) Seg Neutrophils # Seg Neutrophils # Man Lymphocytes # (Manual) Monocytes # (Manual) Eosinophils # (Manual) Basophils # (Manual) PT INR APTT Heparin Anti-Xa Level POC ABG pH POC ABG pCO2 POC ABG pO2 Sodium Potassium Chloride Carbon Dioxide BUN Creatinine Glucose POC Glucose 167 H 153 H 158 H Calcium Phosphorus Magnesium AST C-Reactive Protein Total Protein Albumin Lipase Vitamin B12 TSH Urine WBC (Auto) Urine Chloride Urine Total Protein Crossmatch 10/16/16 10/16/16 10/17/16 22:54 23:48 00:47 WBC RBC Hgb Hct MCV RDW Plt Count Lymph % (Auto) [place] % (Auto) [place] # Seg Neutrophils % Seg Neuts % (Manual) Lymphocytes % (Manual) Monocytes % (Manual) Seg Neutrophils # Seg Neutrophils # Man Lymphocytes # (Manual) Monocytes # (Manual) Eosinophils # (Manual) Basophils # (Manual) PT INR APTT Heparin Anti-Xa Level POC ABG pH POC ABG pCO2 POC ABG pO2 Sodium Potassium Chloride Carbon Dioxide BUN Creatinine Glucose POC Glucose 180 H 207 H 196 H Calcium Phosphorus Magnesium AST C-Reactive Protein Total Protein Albumin Lipase Vitamin B12 TSH Urine WBC (Auto) Urine Chloride Urine Total Protein Crossmatch 10/17/16 10/17/16 10/17/16 01:57 02:49 03:50 WBC RBC Hgb Hct MCV RDW Plt Count Lymph % (Auto) [place] % (Auto) [place] # Seg Neutrophils % Seg Neuts % (Manual) Lymphocytes % (Manual) Monocytes % (Manual) Seg Neutrophils # Seg Neutrophils # Man Lymphocytes # (Manual) Monocytes # (Manual) Eosinophils # (Manual) Basophils # (Manual) PT INR APTT Heparin Anti-Xa Level POC ABG pH POC ABG pCO2 POC ABG pO2 Sodium Potassium Chloride Carbon Dioxide BUN Creatinine Glucose POC Glucose 180 H 151 H 106 H Calcium Phosphorus Magnesium AST C-Reactive Protein Total Protein Albumin Lipase Vitamin B12 TSH Urine WBC (Auto) Urine Chloride Urine Total Protein Crossmatch 10/17/16 10/17/16 10/17/16 04:59 06:03 06:35 WBC RBC Hgb Hct MCV RDW Plt Count Lymph % (Auto) [place] % (Auto) [place] # Seg Neutrophils % Seg Neuts % (Manual) Lymphocytes % (Manual) Monocytes % (Manual) Seg Neutrophils # Seg Neutrophils # Man Lymphocytes # (Manual) Monocytes # (Manual) Eosinophils # (Manual) Basophils # (Manual) PT INR APTT Heparin Anti-Xa Level POC ABG pH 7.453 H POC ABG pCO2 30.1 L POC ABG pO2 111 H Sodium Potassium Chloride Carbon Dioxide BUN Creatinine Glucose POC Glucose 145 H 157 H Calcium Phosphorus Magnesium AST C-Reactive Protein Total Protein Albumin Lipase Vitamin B12 TSH Urine WBC (Auto) Urine Chloride Urine Total Protein Crossmatch 10/17/16 10/17/16 10/17/16 07:08 07:11 08:01 WBC RBC Hgb Hct MCV RDW Plt Count Lymph % (Auto) [place] % (Auto) [place] # Seg Neutrophils % Seg Neuts % (Manual) Lymphocytes % (Manual) Monocytes % (Manual) Seg Neutrophils # Seg Neutrophils # Man Lymphocytes # (Manual) Monocytes # (Manual) Eosinophils # (Manual) Basophils # (Manual) PT INR APTT Heparin Anti-Xa Level POC ABG pH POC ABG pCO2 POC ABG pO2 Sodium 147 H Potassium Chloride 113.8 H Carbon Dioxide 19 L BUN Creatinine Glucose 136 H POC Glucose 136 H 152 H Calcium 7.7 L Phosphorus Magnesium AST C-Reactive Protein Total Protein Albumin Lipase Vitamin B12 TSH Urine WBC (Auto) Urine Chloride Urine Total Protein Crossmatch 10/17/16 10/17/16 10/17/16 08:23 09:17 09:53 WBC 18.1 H RBC 3.01 L Hgb 9.7 L Hct 29.4 L MCV 98 H RDW Plt Count 116 L Lymph % (Auto) [place] % (Auto) [place] # Seg Neutrophils % Seg Neuts % (Manual) 77.0 H Lymphocytes % (Manual) 4.0 L Monocytes % (Manual) 12.0 H Seg Neutrophils # Seg Neutrophils # Man 13.9 H Lymphocytes # (Manual) 0.7 L Monocytes # (Manual) 2.2 H Eosinophils # (Manual) Basophils # (Manual) PT INR APTT Heparin Anti-Xa Level POC ABG pH POC ABG pCO2 POC ABG pO2 Sodium Potassium Chloride Carbon Dioxide BUN Creatinine Glucose POC Glucose 148 H 137 H Calcium Phosphorus Magnesium AST C-Reactive Protein Total Protein Albumin Lipase Vitamin B12 TSH Urine WBC (Auto) Urine Chloride Urine Total Protein Crossmatch 10/17/16 10/17/16 10/17/16 11:43 16:07 17:42 WBC RBC Hgb Hct MCV RDW Plt Count Lymph % (Auto) [place] % (Auto) [place] # Seg Neutrophils % Seg Neuts % (Manual) Lymphocytes % (Manual) Monocytes % (Manual) Seg Neutrophils # Seg Neutrophils # Man Lymphocytes # (Manual) Monocytes # (Manual) Eosinophils # (Manual) Basophils # (Manual) PT 16.4 H INR 1.33 H APTT 38.8 H Heparin Anti-Xa Level POC ABG pH POC ABG pCO2 POC ABG pO2 Sodium Potassium Chloride Carbon Dioxide BUN Creatinine Glucose POC Glucose 179 H 153 H Calcium Phosphorus Magnesium AST C-Reactive Protein Total Protein Albumin Lipase Vitamin B12 TSH Urine WBC (Auto) Urine Chloride Urine Total Protein Crossmatch 10/17/16 10/18/16 10/18/16 22:54 04:37 05:39 WBC RBC Hgb Hct MCV RDW Plt Count Lymph % (Auto) [place] % (Auto) [place] # Seg Neutrophils % Seg Neuts % (Manual) Lymphocytes % (Manual) Monocytes % (Manual) Seg Neutrophils # Seg Neutrophils # Man Lymphocytes # (Manual) Monocytes # (Manual) Eosinophils # (Manual) Basophils # (Manual) PT INR APTT Heparin Anti-Xa Level 0.27 L POC ABG pH 7.454 H POC ABG pCO2 30.8 L POC ABG pO2 115 H Sodium Potassium Chloride Carbon Dioxide BUN Creatinine Glucose POC Glucose 69 L Calcium Phosphorus Magnesium AST C-Reactive Protein Total Protein Albumin Lipase Vitamin B12 TSH Urine WBC (Auto) Urine Chloride Urine Total Protein Crossmatch 10/18/16 10/18/16 10/18/16 06:46 06:46 06:46 WBC 20.5 H RBC 2.62 L Hgb 8.4 L Hct 26.0 L MCV 100 H RDW Plt Count Lymph % (Auto) [place] % (Auto) [place] # Seg Neutrophils % Seg Neuts % (Manual) 75.0 H Lymphocytes % (Manual) 9.0 L Monocytes % (Manual) 14.0 H Seg Neutrophils # Seg Neutrophils # Man 15.4 H Lymphocytes # (Manual) Monocytes # (Manual) 2.9 H Eosinophils # (Manual) Basophils # (Manual) PT INR APTT Heparin Anti-Xa Level POC ABG pH POC ABG pCO2 POC ABG pO2 Sodium Potassium Chloride 110.6 H Carbon Dioxide BUN Creatinine 1.3 H Glucose 153 H POC Glucose Calcium 8.0 L Phosphorus Magnesium 1.6 L AST C-Reactive Protein Total Protein Albumin Lipase Vitamin B12 TSH Urine WBC (Auto) Urine Chloride Urine Total Protein Crossmatch 10/18/16 10/18/16 10/18/16 07:30 11:37 17:51 WBC RBC Hgb Hct MCV RDW Plt Count Lymph % (Auto) [place] % (Auto) [place] # Seg Neutrophils % Seg Neuts % (Manual) Lymphocytes % (Manual) Monocytes % (Manual) Seg Neutrophils # Seg Neutrophils # Man Lymphocytes # (Manual) Monocytes # (Manual) Eosinophils # (Manual) Basophils # (Manual) PT INR APTT Heparin Anti-Xa Level POC ABG pH POC ABG pCO2 POC ABG pO2 Sodium Potassium Chloride Carbon Dioxide BUN Creatinine Glucose POC Glucose 162 H 156 H 164 H Calcium Phosphorus Magnesium AST C-Reactive Protein Total Protein Albumin Lipase Vitamin B12 TSH Urine WBC (Auto) Urine Chloride Urine Total Protein Crossmatch 10/18/16 10/19/16 10/19/16 23:44 03:59 05:13 WBC 18.2 H RBC 2.76 L Hgb 9.0 L Hct 27.7 L MCV 100 H RDW Plt Count Lymph % (Auto) [place] % (Auto) [place] # Seg Neutrophils % Seg Neuts % (Manual) 76.0 H Lymphocytes % (Manual) 10.0 L Monocytes % (Manual) Seg Neutrophils # Seg Neutrophils # Man 13.8 H Lymphocytes # (Manual) Monocytes # (Manual) Eosinophils # (Manual) Basophils # (Manual) PT INR APTT Heparin Anti-Xa Level POC ABG pH POC ABG pCO2 32.2 L POC ABG pO2 128 H Sodium Potassium Chloride Carbon Dioxide BUN Creatinine Glucose POC Glucose 278 H Calcium Phosphorus Magnesium AST C-Reactive Protein Total Protein Albumin Lipase Vitamin B12 TSH Urine WBC (Auto) Urine Chloride Urine Total Protein Crossmatch 10/19/16 10/19/16 10/19/16 06:01 06:30 12:20 WBC RBC Hgb Hct MCV RDW Plt Count Lymph % (Auto) [place] % (Auto) [place] # Seg Neutrophils % Seg Neuts % (Manual) Lymphocytes % (Manual) Monocytes % (Manual) Seg Neutrophils # Seg Neutrophils # Man Lymphocytes # (Manual) Monocytes # (Manual) Eosinophils # (Manual) Basophils # (Manual) PT INR APTT Heparin Anti-Xa Level POC ABG pH POC ABG pCO2 POC ABG pO2 Sodium Potassium Chloride Carbon Dioxide 18 L BUN Creatinine 1.3 H Glucose 262 H POC Glucose 261 H 349 H Calcium 7.7 L Phosphorus 4.8 H D Magnesium AST C-Reactive Protein Total Protein Albumin Lipase Vitamin B12 TSH Urine WBC (Auto) Urine Chloride Urine Total Protein Crossmatch 10/19/16 10/20/16 10/20/16 16:48 00:17 05:20 WBC 22.5 H RBC 2.80 L Hgb 8.9 L Hct 28.3 L MCV 101 H RDW Plt Count Lymph % (Auto) [place] % (Auto) [place] # Seg Neutrophils % Seg Neuts % (Manual) Lymphocytes % (Manual) 10.0 L Monocytes % (Manual) Seg Neutrophils # Seg Neutrophils # Man 13.3 H Lymphocytes # (Manual) Monocytes # (Manual) 1.1 H Eosinophils # (Manual) 0.7 H Basophils # (Manual) PT INR APTT Heparin Anti-Xa Level POC ABG pH POC ABG pCO2 POC ABG pO2 Sodium Potassium Chloride Carbon Dioxide BUN Creatinine Glucose POC Glucose 248 H 346 H Calcium Phosphorus Magnesium AST C-Reactive Protein Total Protein Albumin Lipase Vitamin B12 TSH Urine WBC (Auto) Urine Chloride Urine Total Protein Crossmatch 10/20/16 10/20/16 10/20/16 05:20 05:20 06:05 WBC RBC Hgb Hct MCV RDW Plt Count Lymph % (Auto) [place] % (Auto) [place] # Seg Neutrophils % Seg Neuts % (Manual) Lymphocytes % (Manual) Monocytes % (Manual) Seg Neutrophils # Seg Neutrophils # Man Lymphocytes # (Manual) Monocytes # (Manual) Eosinophils # (Manual) Basophils # (Manual) PT INR APTT Heparin Anti-Xa Level 0.20 L POC ABG pH POC ABG pCO2 POC ABG pO2 Sodium Potassium Chloride Carbon Dioxide BUN 20 H Creatinine Glucose 374 H POC Glucose 337 H Calcium 8.3 L Phosphorus Magnesium AST C-Reactive Protein Total Protein Albumin Lipase Vitamin B12 TSH Urine WBC (Auto) Urine Chloride Urine Total Protein Crossmatch 10/20/16 10/20/16 10/20/16 11:49 13:59 17:56 WBC RBC Hgb Hct MCV RDW Plt Count Lymph % (Auto) [place] % (Auto) [place] # Seg Neutrophils % Seg Neuts % (Manual) Lymphocytes % (Manual) Monocytes % (Manual) Seg Neutrophils # Seg Neutrophils # Man Lymphocytes # (Manual) Monocytes # (Manual) Eosinophils # (Manual) Basophils # (Manual) PT INR APTT Heparin Anti-Xa Level 2.00 H POC ABG pH POC ABG pCO2 POC ABG pO2 Sodium Potassium Chloride Carbon Dioxide BUN Creatinine Glucose POC Glucose 305 H 362 H Calcium Phosphorus Magnesium AST C-Reactive Protein Total Protein Albumin Lipase Vitamin B12 TSH Urine WBC (Auto) Urine Chloride Urine Total Protein Crossmatch 10/20/16 10/21/16 10/21/16 23:52 05:00 05:49 WBC 22.9 H RBC 2.49 L Hgb 7.7 L Hct 25.6 L MCV 103 H RDW Plt Count Lymph % (Auto) [place] % (Auto) [place] # Seg Neutrophils % Seg Neuts % (Manual) 94.0 H Lymphocytes % (Manual) 1.0 L Monocytes % (Manual) Seg Neutrophils # Seg Neutrophils # Man 21.5 H Lymphocytes # (Manual) 0.2 L Monocytes # (Manual) 1.1 H Eosinophils # (Manual) Basophils # (Manual) PT INR APTT Heparin Anti-Xa Level POC ABG pH POC ABG pCO2 POC ABG pO2 Sodium Potassium Chloride Carbon Dioxide BUN Creatinine Glucose POC Glucose 252 H 180 H Calcium Phosphorus Magnesium AST C-Reactive Protein Total Protein Albumin Lipase Vitamin B12 TSH Urine WBC (Auto) Urine Chloride Urine Total Protein Crossmatch 10/21/16 10/21/16 10/21/16 11:47 11:49 14:10 WBC RBC Hgb Hct MCV RDW Plt Count Lymph % (Auto) [place] % (Auto) [place] # Seg Neutrophils % Seg Neuts % (Manual) Lymphocytes % (Manual) Monocytes % (Manual) Seg Neutrophils # Seg Neutrophils # Man Lymphocytes # (Manual) Monocytes # (Manual) Eosinophils # (Manual) Basophils # (Manual) PT INR APTT Heparin Anti-Xa Level POC ABG pH POC ABG pCO2 POC ABG pO2 Sodium Potassium Chloride Carbon Dioxide BUN Creatinine Glucose POC Glucose 50 L 56 L 140 H Calcium Phosphorus Magnesium AST C-Reactive Protein Total Protein Albumin Lipase Vitamin B12 TSH Urine WBC (Auto) Urine Chloride Urine Total Protein Crossmatch 10/21/16 10/21/16 10/22/16 18:24 Unknown 00:07 WBC RBC Hgb Hct MCV RDW Plt Count Lymph % (Auto) [place] % (Auto) [place] # Seg Neutrophils % Seg Neuts % (Manual) Lymphocytes % (Manual) Monocytes % (Manual) Seg Neutrophils # Seg Neutrophils # Man Lymphocytes # (Manual) Monocytes # (Manual) Eosinophils # (Manual) Basophils # (Manual) PT INR APTT Heparin Anti-Xa Level POC ABG pH POC ABG pCO2 POC ABG pO2 Sodium 150 H Potassium 3.1 L Chloride 112.4 H Carbon Dioxide BUN 25 H Creatinine 1.4 H Glucose POC Glucose 175 H 218 H Calcium 8.0 L Phosphorus Magnesium AST C-Reactive Protein Total Protein Albumin Lipase Vitamin B12 TSH Urine WBC (Auto) Urine Chloride Urine Total Protein Crossmatch 10/22/16 10/22/16 10/22/16 04:20 04:20 10:25 WBC 20.8 H RBC 2.37 L Hgb 7.5 L Hct 23.9 L MCV 101 H RDW Plt Count Lymph % (Auto) [place] % (Auto) [place] # Seg Neutrophils % Seg Neuts % (Manual) 89.0 H Lymphocytes % (Manual) 7.0 L Monocytes % (Manual) Seg Neutrophils # Seg Neutrophils # Man 18.5 H Lymphocytes # (Manual) Monocytes # (Manual) Eosinophils # (Manual) Basophils # (Manual) 0.2 H PT INR APTT Heparin Anti-Xa Level POC ABG pH POC ABG pCO2 POC ABG pO2 Sodium 148 H Potassium 2.9 L* Chloride 109.4 H Carbon Dioxide BUN 26 H Creatinine Glucose 140 H POC Glucose Calcium 7.5 L Phosphorus Magnesium AST C-Reactive Protein Total Protein Albumin Lipase Vitamin B12 976.8 H TSH Urine WBC (Auto) Urine Chloride Urine Total Protein Crossmatch 10/22/16 10/22/16 10/22/16 10:25 14:50 18:16 WBC RBC Hgb Hct MCV RDW Plt Count Lymph % (Auto) [place] % (Auto) [place] # Seg Neutrophils % Seg Neuts % (Manual) Lymphocytes % (Manual) Monocytes % (Manual) Seg Neutrophils # Seg Neutrophils # Man Lymphocytes # (Manual) Monocytes # (Manual) Eosinophils # (Manual) Basophils # (Manual) PT INR APTT Heparin Anti-Xa Level POC ABG pH POC ABG pCO2 POC ABG pO2 Sodium Potassium Chloride Carbon Dioxide BUN Creatinine Glucose POC Glucose 193 H Calcium Phosphorus Magnesium AST C-Reactive Protein Total Protein Albumin Lipase Vitamin B12 TSH 0.143 L 0.162 L Urine WBC (Auto) Urine Chloride Urine Total Protein Crossmatch 10/22/16 10/22/16 10/22/16 20:00 20:00 20:00 WBC 24.1 H RBC 2.58 L Hgb 8.2 L Hct 26.4 L MCV 102 H RDW Plt Count Lymph % (Auto) [place] % (Auto) [place] # Seg Neutrophils % Seg Neuts % (Manual) 74.0 H Lymphocytes % (Manual) 7.0 L Monocytes % (Manual) Seg Neutrophils # Seg Neutrophils # Man 17.8 H Lymphocytes # (Manual) Monocytes # (Manual) Eosinophils # (Manual) Basophils # (Manual) PT INR APTT Heparin Anti-Xa Level 1.92 H POC ABG pH POC ABG pCO2 POC ABG pO2 Sodium Potassium Chloride Carbon Dioxide BUN Creatinine Glucose POC Glucose Calcium Phosphorus Magnesium AST C-Reactive Protein Total Protein Albumin Lipase Vitamin B12 TSH Urine WBC (Auto) Urine Chloride Urine Total Protein Crossmatch See Detail 10/23/16 10/23/16 10/23/16 00:21 06:09 12:07 WBC RBC Hgb Hct MCV RDW Plt Count Lymph % (Auto) [place] % (Auto) [place] # Seg Neutrophils % Seg Neuts % (Manual) Lymphocytes % (Manual) Monocytes % (Manual) Seg Neutrophils # Seg Neutrophils # Man Lymphocytes # (Manual) Monocytes # (Manual) Eosinophils # (Manual) Basophils # (Manual) PT INR APTT Heparin Anti-Xa Level POC ABG pH POC ABG pCO2 POC ABG pO2 Sodium Potassium Chloride Carbon Dioxide BUN Creatinine Glucose POC Glucose 283 H 241 H 340 H Calcium Phosphorus Magnesium AST C-Reactive Protein Total Protein Albumin Lipase Vitamin B12 TSH Urine WBC (Auto) Urine Chloride Urine Total Protein Crossmatch 10/23/16 10/23/16 10/23/16 14:01 16:00 17:59 WBC RBC Hgb Hct MCV RDW Plt Count Lymph % (Auto) [place] % (Auto) [place] # Seg Neutrophils % Seg Neuts % (Manual) Lymphocytes % (Manual) Monocytes % (Manual) Seg Neutrophils # Seg Neutrophils # Man Lymphocytes # (Manual) Monocytes # (Manual) Eosinophils # (Manual) Basophils # (Manual) PT INR APTT Heparin Anti-Xa Level 0.19 L POC ABG pH POC ABG pCO2 32.4 L POC ABG pO2 Sodium Potassium Chloride Carbon Dioxide BUN Creatinine Glucose POC Glucose 245 H Calcium Phosphorus Magnesium AST C-Reactive Protein Total Protein Albumin Lipase Vitamin B12 TSH Urine WBC (Auto) Urine Chloride Urine Total Protein Crossmatch 10/23/16 10/23/16 10/23/16 22:55 Unknown Unknown WBC 22.6 H RBC 3.26 L Hgb Hct MCV RDW 17.1 H Plt Count Lymph % (Auto) [place] % (Auto) [place] # Seg Neutrophils % Seg Neuts % (Manual) Lymphocytes % (Manual) 11.0 L Monocytes % (Manual) Seg Neutrophils # Seg Neutrophils # Man 14.0 H Lymphocytes # (Manual) Monocytes # (Manual) Eosinophils # (Manual) Basophils # (Manual) PT INR APTT Heparin Anti-Xa Level 0.17 L 0.15 L POC ABG pH POC ABG pCO2 POC ABG pO2 Sodium Potassium Chloride Carbon Dioxide BUN Creatinine Glucose POC Glucose Calcium Phosphorus Magnesium AST C-Reactive Protein Total Protein Albumin Lipase Vitamin B12 TSH Urine WBC (Auto) Urine Chloride Urine Total Protein Crossmatch 10/23/16 10/24/16 10/24/16 Unknown 00:05 05:30 WBC RBC Hgb Hct MCV RDW Plt Count Lymph % (Auto) [place] % (Auto) [place] # Seg Neutrophils % Seg Neuts % (Manual) Lymphocytes % (Manual) Monocytes % (Manual) Seg Neutrophils # Seg Neutrophils # Man Lymphocytes # (Manual) Monocytes # (Manual) Eosinophils # (Manual) Basophils # (Manual) PT INR APTT Heparin Anti-Xa Level 0.13 L POC ABG pH POC ABG pCO2 POC ABG pO2 Sodium Potassium Chloride 111.2 H Carbon Dioxide 20 L BUN 25 H Creatinine Glucose 227 H POC Glucose 118 H Calcium 7.1 L Phosphorus Magnesium AST C-Reactive Protein Total Protein Albumin Lipase Vitamin B12 TSH Urine WBC (Auto) Urine Chloride Urine Total Protein Crossmatch Chest x-ray: pending Allied health notes reviewed: RT
[2016-10-24] MEDS: LEVEMIR SUB-Q SCH (10:52)
[2016-10-24] MEDS: DIFLUCAN 200 MG/100 ML BAG IV SCH (10:52)
[2016-10-24] MEDS: CARDIZEM IV PRN (11:08)
[2016-10-24] MEDS: TYLENOL FEEDTUBE PRN ×3 (11:22→22:10)
[2016-10-24 11:56] LABS: Hematocrit 28.3 % (30.3-42.9); Hemoglobin 9.2 gm/dl (10.1-14.3); Mean Corpuscular HGB Conc 33 % (30-34); Mean Corpuscular Hemoglobin 32 pg (28-32); Mean Corpuscular Volume 97 fl (79-97); Platelet Count 366 K/mm3 (140-440); Red Blood Count 2.92 M/mm3 (3.65-5.03); Red Cell Distribution Width 16.9 % (13.2-15.2); White Blood Count 17.6 K/mm3 (4.5-11.0)
[2016-10-24] MEDS ORDERED: MORPHINE IV ONE (12:00)
[2016-10-24] MEDS: fentaNYL DRIP Premix 2,000 MCG/100 ML BAG IV SCH ×2 (12:09→23:59)
[2016-10-24] MEDS: HEPARIN/ 0.45% NACL-25,000 UNIT/500 ML 25,000 UNITS/500 ML BAG IV SCH ×3 (13:42→19:09)
--- NOTE | 2016-10-24 13:46 | XRay Report ---
Single view chest: Compared to 10/20/16. History: Acute respiratory failure. Findings: Borderline cardiomegaly. Stable support system. Mild pulmonary venous congestion predominantly right lower lobe. No consolidation. No significant interval change. Impression: No significant interval change.
[2016-10-24 14:33] LABS: ISTAT Base Excess -5; ISTAT HCO3 20.3; ISTAT PCO2 33.9 (35-45); ISTAT PH 7.386 (7.35-7.45); ISTAT PO2 92 (80-105); ISTAT SO2 97; ISTAT TCO2 21
--- NOTE | 2016-10-24 15:33 | Consultation ---
History of Present Illness Consult date: 10/24/16 - History of present illness History of present illness: The patient is a 66F w/ h/o DM, HTN, spesis/UTI, SFA thrombosis who has acute respiratory distress. She has been intubated since 10/13 and currently has an FIO2 of 0.3 Past History Past Medical History: diabetes, hypertension Past Surgical History: Other (left alina surgery for fracture repair and thyroid surgery per ) Social history: Family history: no significant family history Medications and Allergies Allergies Allergy/AdvReac Type Severity Reaction Status Date / Time Penicillins Allergy Rash Verified 08/27/13 08:32 Home Medications Medication Instructions Recorded Confirmed Last Taken Type Insulin Aspart [NovoLOG Flexpen] 45 units SQ QPM 10/13/16 10/13/16 Unknown History Insulin Aspart [NovoLOG Flexpen] 50 units SQ QAM 10/13/16 10/13/16 Unknown History Insulin Detemir [Levemir VIAL] 20 unit SQ QHS 10/13/16 10/13/16 Unknown History Losartan [Cozaar] 25 mg PO QDAY 10/13/16 10/13/16 Unknown History Metoprolol [Lopressor] 25 mg PO BID 10/13/16 10/13/16 Unknown History Pregabalin [Lyrica] 75 mg PO BID 10/13/16 10/13/16 Unknown History Quetiapine Fumarate [Seroquel] 100 mg PO QHS 10/13/16 10/13/16 Unknown History amLODIPine [Norvasc] 5 mg PO DAILY 10/13/16 10/13/16 Unknown History clonazePAM [Klonopin] 1 mg PO BID PRN 10/13/16 10/13/16 Unknown History Active Meds: Active Medications Acetaminophen (Tylenol) 650 mg FEEDTUBE Q6H PRN PRN Reason: Pain, Mild (1-3) Last Admin: 10/24/16 11:22 Dose: 650 mg Lipase/Protease/Amylase (Pancreaze Dr 10,500 Unit) 1 each FEEDTUBE PRN PRN PRN Reason: For Clogged Feeding Tube Dextrose (D50w (25gm)) 50 ml IV PRN PRN PRN Reason: Hypoglycemia Last Admin: 10/18/16 05:49 Dose: 50 ml Diltiazem HCl (Cardizem) 5 mg IV Q4H PRN PRN Reason: Tachyarrhythmias Last Admin: 10/24/16 11:08 Dose: 5 mg Famotidine (Pepcid) 20 mg PO BID JULI Last Admin: 10/24/16 10:51 Dose: 20 mg Hydrophilic Ointment (Vaseline Lip Therapy) 1 applic TP Q2HR PRN PRN Reason: Dry Lips Midazolam HCl (Versed/Ns 100mg/100ml) 100 mg in 100 mls @ 1 mls/hr IV TITR JULI ; 1 MG/HR PRN Reason: Protocol Last Admin: 10/21/16 16:52 Dose: 1 mg/hr, 1 mls/hr Fentanyl Citrate (Fentanyl Drip Premix) 2,000 mcg in 100 mls @ 4.082 mls/hr IV TITR JULI; 1 MCG/KG/HR PRN Reason: Protocol Last Admin: 10/24/16 12:09 Dose: 2 mcg/kg/hr, 8.165 mls/hr Heparin Sodium/Sodium Chloride (Heparin/ 0.45% Nacl-25,000 Unit/500 Ml) 25,000 units in 500 mls @ 24 mls/hr IV TITR JULI; 1,200 UNITS/HR PRN Reason: Protocol Last Admin: 10/24/16 13:42 Dose: 1,700 units/hr, 34 mls/hr Aztreonam (Azactam/Ns 1 Gm/50 Ml) 1 gm in 50 mls @ 50 mls/hr IV Q8HR JULI Last Admin: 10/24/16 13:42 Dose: 50 mls/hr Vancomycin HCl 1,250 mg/ (Sodium Chloride) 250 mls @ 166.667 mls/hr IV Q24HR JULI Last Admin: 10/24/16 10:30 Dose: 166.667 mls/hr Fluconazole (Diflucan) 200 mg in 100 mls @ 100 mls/hr IV Q24HR JULI PRN Reason: Protocol Stop: 10/29/16 09:59 Last Admin: 10/24/16 10:52 Dose: 100 mls/hr Insulin Detemir (Levemir) 25 units SUB-Q DAILY [facility] Last Admin: 10/24/16 10:52 Dose: 25 units Insulin Human Regular (Novolin R) 0 units SUB-Q Q6HR JULI PRN Reason: Protocol Last Admin: 10/24/16 13:43 Dose: 2 units Metoprolol Tartrate (Lopressor) 5 mg IV Q6HR [facility] Last Admin: 10/24/16 12:10 Dose: 5 mg Metoprolol Tartrate (Lopressor) 25 mg FEEDTUBE Q8H [facility] Metronidazole (Flagyl) 500 mg PO Q8HR [facility] Last Admin: 10/24/16 13:43 Dose: 500 mg Multi-Ingred Cream/Lotion/Oil/Oint (Artificial Tears Ophth Oint) 1 applic OU Q4HR PRN PRN Reason: Dry Eye(s) Ondansetron HCl (Zofran) 4 mg IV Q8H PRN PRN Reason: N/V unrelieved by Reglan Quetiapine Fumarate (Seroquel) 50 mg PO BID [facility] Last Admin: 10/24/16 10:51 Dose: 50 mg Simple Syrup (Simple Syrup) 15 ml FEEDTUBE PRN PRN PRN Reason: Hypoglycemia Simple Syrup (Simple Syrup) 30 ml FEEDTUBE PRN PRN PRN Reason: Hypoglycemia Last Admin: 10/21/16 11:59 Dose: 30 ml Vancomycin HCl (Vancomycin Pharmacy To Dose) 1 each IV PKCONSULT [facility] Exam Vital Signs Pulse Resp BP Pulse Ox 120 H 32 H 104/78 99 10/13/16 04:04 10/13/16 04:04 10/13/16 04:04 10/13/16 04:04 - Neck Positive: no masses, trachea midline - Respiratory rales: bilateral - Cardiovascular Rhythm: regular - Abdomen Abdomen: Present: soft, bowel sounds normal Results - Labs 10/24/16 11:00 10/23/16 Unknown Abnormal lab results 10/23/16 10/23/16 10/23/16 Range/Units 16:00 17:59 22:55 WBC (4.5-11.0) K/mm3 RBC (3.65-5.03) M/mm3 Hgb (10.1-14.3) gm/dl Hct (30.3-42.9) % RDW (13.2-15.2) % Heparin Anti-Xa Level 0.19 L 0.17 L (0.3-0.7) U.I./ml POC ABG pCO2 (35-45) POC Glucose 245 H (70-105) 10/24/16 10/24/16 10/24/16 Range/Units 00:05 05:30 11:00 WBC (4.5-11.0) K/mm3 RBC (3.65-5.03) M/mm3 Hgb (10.1-14.3) gm/dl Hct (30.3-42.9) % RDW (13.2-15.2) % Heparin Anti-Xa Level 0.13 L 0.27 L (0.3-0.7) U.I./ml POC ABG pCO2 (35-45) POC Glucose 118 H (70-105) 10/24/16 10/24/16 10/24/16 Range/Units 11:00 12:06 12:27 WBC 17.6 H (4.5-11.0) K/mm3 RBC 2.92 L (3.65-5.03) M/mm3 Hgb 9.2 L (10.1-14.3) gm/dl Hct 28.3 L (30.3-42.9) % RDW 16.9 H (13.2-15.2) % Heparin Anti-Xa Level (0.3-0.7) U.I./ml POC ABG pCO2 33.9 L (35-45) POC Glucose 166 H (70-105) Assessment and Plan A/P: 1. the patient is currently intubated at an FIO2 of .30 with unsuccessful attempts to wean. We will contact her family for consent and plan fopr percutaneous tracheostomy.
[2016-10-24] MEDS: LOPRESSOR FEEDTUBE SCH ×2 (16:01→22:11)
--- NOTE | 2016-10-24 16:43 | Progress Note ---
Assessment and Plan Assessment and plan: 66-year-old woman who presented with lethargy and altered mental status she deteriorated and was intubated and in emergency room, she was managed for DKA and she also developed sepsis due to UTI and right lower extremity ischemia 1. Acute respiratory failure with hypercapnia Continue ventilator, failed weaning trial. will plan for Trach and Peg 2. Diabetes DKA has now resolved, continue SubQ insulin 3. Sepsis- leukocytosis improving Suspected due to UTI, urine has only grown Paula, sputum cultures grew group B strep, continue broad-spectrum antibiotics, infectious disease input appreciated 4. 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 Hypokalemia replete IV 6. Toxic metabolic encephalopathy- improved. 7. LUCY- present on admissions. likely vasomotor 8. Tachycardia- continue BB will add cardizem, if no improvement will add cardiology consultation Given her multiple medical illnesses, her prognosis is quite poor at bedside and updated on finding. Discussed with transit vehicle inspector. Critical care time 32 minutes History Interval history: Patient seen and examined, remains intubated. failed weaning. sinus tachycardia. Hospitalist Physical - Physical exam Narrative exam: VITAL SIGNS: Reviewed. GENERAL: The patient appeared well nourished and normally developed. Vital signs as documented. HEAD: No signs of head trauma. EYES: Pupils are equal. Extraocular motions intact. EARS: Hearing grossly intact. MOUTH: ETT NECK: No adenopathy, no JVD. CHEST: Chest with diminshed CARDIAC: Regular rate and rhythm. S1 and S2, without murmurs, gallops, or rubs. VASCULAR: trace Edema. Peripheral pulses not palpable at the right lower ext ABDOMEN: Soft, without detectable tenderness. No sign of distention. No rebound or guarding, and no masses palpated. Bowel Sounds normal. MUSCULOSKELETAL: Good range of motion of all major joints. Extremities cyanosis to right lower ext. NEUROLOGIC EXAM: follows command. PSYCHIATRIC: unable to assess. SKIN: cold at the right lower ext - Constitutional Vitals: Temp Pulse Resp BP Pulse Ox 100.5 F H 82 18 113/59 98 10/24/16 13:00 10/24/16 16:01 10/24/16 15:00 10/24/16 16:01 10/24/16 16:00 General appearance: Present: no acute distress Results - Labs CBC & Chem 7: 10/24/16 11:00 10/23/16 Unknown Labs: Laboratory Last Values WBC 17.6 K/mm3 (4.5-11.0) H 10/24/16 11:00 RBC 2.92 M/mm3 (3.65-5.03) L 10/24/16 11:00 Hgb 9.2 gm/dl (10.1-14.3) L 10/24/16 11:00 Hct 28.3 % (30.3-42.9) L 10/24/16 11:00 MCV 97 fl (79-97) 10/24/16 11:00 MCH 32 pg (28-32) 10/24/16 11:00 MCHC 33 % (30-34) 10/24/16 11:00 RDW 16.9 % (13.2-15.2) H 10/24/16 11:00 Plt Count 366 K/mm3 (140-440) 10/24/16 11:00 Lymph % (Auto) Production Support Analyst 10/21/16 05:00 [place] % (Auto) Production Support Analyst 10/21/16 05:00 Eos % (Auto) Production Support Analyst 10/21/16 05:00 Baso % (Auto) Production Support Analyst 10/21/16 05:00 Lymph # Production Support Analyst 10/21/16 05:00 [place] # Production Support Analyst 10/21/16 05:00 Eos # Production Support Analyst 10/21/16 05:00 Baso # Production Support Analyst 10/21/16 05:00 Add Manual Diff Complete 10/23/16 Unknown Total Counted 100 10/23/16 Unknown Seg Neutrophils % Production Support Analyst 10/21/16 05:00 Seg Neuts % (Manual) 62.0 % (40.0-70.0) 10/23/16 Unknown Band Neutrophils % 25.0 % 10/23/16 Unknown Lymphocytes % (Manual) 11.0 % (13.4-35.0) L 10/23/16 Unknown Reactive Lymphs % (Man) 0 % 10/23/16 Unknown Monocytes % (Manual) 2.0 % (0.0-7.3) 10/23/16 Unknown Eosinophils % (Manual) 0 % (0.0-4.3) 10/23/16 Unknown Basophils % (Manual) 0 % (0.0-1.8) 10/23/16 Unknown Metamyelocytes % 0 % 10/23/16 Unknown Myelocytes % 0 % 10/23/16 Unknown Promyelocytes % 0 % 10/23/16 Unknown Blast Cells % 0 % 10/23/16 Unknown Nucleated RBC % Not Reportable 10/23/16 Unknown Seg Neutrophils # Production Support Analyst 10/21/16 05:00 Seg Neutrophils # Man 14.0 K/mm3 (1.8-7.7) H 10/23/16 Unknown Band Neutrophils # 5.7 K/mm3 10/23/16 Unknown Lymphocytes # (Manual) 2.5 K/mm3 (1.2-5.4) 10/23/16 Unknown Abs React Lymphs (Man) 0.0 K/mm3 10/23/16 Unknown Monocytes # (Manual) 0.5 K/mm3 (0.0-0.8) 10/23/16 Unknown Eosinophils # (Manual) 0.0 K/mm3 (0.0-0.4) 10/23/16 Unknown Basophils # (Manual) 0.0 K/mm3 (0.0-0.1) 10/23/16 Unknown Metamyelocytes # 0.0 K/mm3 10/23/16 Unknown Myelocytes # 0.0 K/mm3 10/23/16 Unknown Promyelocytes # 0.0 K/mm3 10/23/16 Unknown Blast Cells # 0.0 K/mm3 10/23/16 Unknown WBC Morphology Not Reportable 10/23/16 Unknown Hypersegmented Neuts Not Reportable 10/23/16 Unknown Hyposegmented Neuts Not Reportable 10/23/16 Unknown Hypogranular Neuts Not Reportable 10/23/16 Unknown Hypersegmented Polys TNR 10/17/16 07:08 Smudge Cells Not Reportable 10/23/16 Unknown Toxic Granulation Not Reportable 10/23/16 Unknown Toxic Vacuolation Not Reportable 10/23/16 Unknown Dohle Bodies Not Reportable 10/23/16 Unknown Pelger-Huet Anomaly Not Reportable 10/23/16 Unknown [place] Rods Not Reportable 10/23/16 Unknown Platelet Estimate Appears normal 10/23/16 Unknown Clumped Platelets Not Reportable 10/23/16 Unknown Plt Clumps, EDTA Not Reportable 10/23/16 Unknown Large Platelets Rare 10/23/16 Unknown Giant Platelets Not Reportable 10/23/16 Unknown Platelet Satelliting Not Reportable 10/23/16 Unknown Plt Morphology Comment Not Reportable 10/23/16 Unknown RBC Morphology Not Reportable 10/23/16 Unknown Dimorphic RBCs Not Reportable 10/23/16 Unknown Polychromasia Few 10/23/16 Unknown Hypochromasia 1+ 10/23/16 Unknown Poikilocytosis Few 10/23/16 Unknown Basophilic Stippling TNR 10/17/16 07:08 Anisocytosis 1+ 10/23/16 Unknown Microcytosis Not Reportable 10/23/16 Unknown Macrocytosis Not Reportable 10/23/16 Unknown Spherocytes Not Reportable 10/23/16 Unknown Pappenheimer Bodies Not Reportable 10/23/16 Unknown Sickle Cells Not Reportable 10/23/16 Unknown Target Cells Not Reportable 10/23/16 Unknown Tear Drop Cells Not Reportable 10/23/16 Unknown Ovalocytes Not Reportable 10/23/16 Unknown Stomatocytes Rare 10/22/16 04:20 Helmet Cells Not Reportable 10/23/16 Unknown Higgins-Lorain Bodies Not Reportable 10/23/16 Unknown [place] Rings Not Reportable 10/23/16 Unknown [place] Cells Not Reportable 10/23/16 Unknown Bite Cells Not Reportable 10/23/16 Unknown Crenated Cell Not Reportable 10/23/16 Unknown Elliptocytes Not Reportable 10/23/16 Unknown Acanthocytes (Spur) Not Reportable 10/23/16 Unknown Rouleaux Not Reportable 10/23/16 Unknown Hemoglobin C Crystals Not Reportable 10/23/16 Unknown Schistocytes Not Reportable 10/23/16 Unknown Malaria parasites Not Reportable 10/23/16 Unknown David Bodies Not Reportable 10/23/16 Unknown Hem Pathologist Commnt No 10/23/16 Unknown PT 16.4 Sec. (12.2-14.9) H 10/17/16 16:07 INR 1.33 (0.87-1.13) H 10/17/16 16:07 APTT 38.8 Sec. (24.2-36.6) H 10/17/16 16:07 Heparin Anti-Xa Level 0.27 U.I./ml (0.3-0.7) L 10/24/16 11:00 POC ABG pH 7.386 (7.35-7.45) 10/24/16 12:27 POC ABG pCO2 33.9 (35-45) L 10/24/16 12:27 POC ABG pO2 92 (80-105) 10/24/16 12:27 POC ABG HCO3 20.3 10/24/16 12:27 POC ABG Total CO2 21 10/24/16 12:27 POC ABG O2 Sat 97 10/24/16 12:27 POC ABG Base Excess -5 10/24/16 12:27 VBG pH 7.020 (7.320-7.420) L* 10/13/16 04:22 FiO2 25 % 10/24/16 12:27 Sodium 142 mmol/L (137-145) 10/23/16 Unknown Potassium 4.2 mmol/L (3.6-5.0) D 10/23/16 Unknown Chloride 111.2 mmol/L (98-107) H 10/23/16 Unknown Carbon Dioxide 20 mmol/L (22-30) L 10/23/16 Unknown Anion Gap 15 mmol/L 10/23/16 Unknown BUN 25 mg/dL (7-17) H 10/23/16 Unknown Creatinine 0.9 mg/dL (0.7-1.2) 10/23/16 Unknown Estimated GFR > 60 ml/min 10/23/16 Unknown BUN/Creatinine Ratio 27.77 % 10/23/16 Unknown Glucose 227 mg/dL (65-100) H 10/23/16 Unknown POC Glucose 166 (70-105) H 10/24/16 12:06 Osmolality 332 Mosm/kg 10/14/16 07:03 Lactic Acid 1.8 mmol/L (0.7-2.0) 10/14/16 07:03 Calcium 7.1 mg/dL (8.4-10.2) L 10/23/16 Unknown Phosphorus 2.7 mg/dL (2.5-4.5) D 10/21/16 Unknown Magnesium 1.9 mg/dL (1.7-2.3) 10/22/16 04:20 Total Bilirubin 0.5 mg/dL (0.1-1.2) 10/15/16 04:40 AST 79 units/L (5-40) H 10/15/16 04:40 ALT 27 units/L (7-56) 10/15/16 04:40 Alkaline Phosphatase 80 units/L (35-129) 10/15/16 04:40 Ammonia 35.0 umol/L (25-60) 10/13/16 05:40 Total Creatine Kinase 107 units/L (30-135) 10/13/16 04:22 CK-MB (CK-2) 3.1 ng/mL (0.0-4.0) 10/13/16 04:22 CK-MB (CK-2) Rel Index 2.8 (0-4) 10/13/16 04:22 Troponin T < 0.010 ng/mL (0.00-0.029) 10/14/16 18:55 C-Reactive Protein 10.50 mg/dL (0.00-1.30) H 10/13/16 16:14 Total Protein 5.5 g/dL (6.3-8.2) L 10/15/16 04:40 Albumin 3.0 g/dL (3.9-5) L 10/15/16 04:40 Albumin/Globulin Ratio 1.2 % 10/15/16 04:40 Lipase 143 units/L (13-60) H 10/16/16 04:14 Vitamin B12 976.8 pg/mL (211-911) H 10/22/16 10:25 TSH 0.162 mlU/mL (0.270-4.200) L 10/22/16 14:50 Free T4 0.77 ng/dL (0.76-1.46) 10/22/16 14:50 Urine Color Yellow (Yellow) 10/15/16 11:05 Urine Turbidity Cloudy (Clear) 10/15/16 11:05 Urine pH 5.0 (5.0-7.0) 10/15/16 11:05 Ur Specific [place] 1.009 (1.003-1.030) 10/15/16 11:05 Urine Protein 30 mg/dl mg/dL (Negative) 10/15/16 11:05 Urine Glucose (UA) 150 mg/dL (Negative) 10/15/16 11:05 Urine Ketones Neg mg/dL (Negative) 10/15/16 11:05 Urine Blood Lg (Negative) 10/15/16 11:05 Urine Nitrite Neg (Negative) 10/15/16 11:05 Urine Bilirubin Neg (Negative) 10/15/16 11:05 Urine Urobilinogen < 2.0 mg/dL (<2.0) 10/15/16 11:05 Ur Leukocyte Esterase Neg (Negative) 10/15/16 11:05 Urine WBC (Auto) 7.0 /HPF (0.0-6.0) H 10/15/16 11:05 Urine RBC (Auto) 7.0 /HPF (0.0-6.0) 10/15/16 11:05 U Epithel Cells (Auto) 1.0 /HPF (0-13.0) 10/15/16 11:05 Urine Mucus Few /HPF 10/15/16 11:05 Urine Yeast (Budding) 2+ /HPF 10/15/16 11:05 Urine Osmolality 487 Mosm/kg 10/13/16 Unknown Urine Creatinine < 4.2 mg/dL (0.1-20.0) 10/13/16 Unknown Protein/Creatinin Ratio 0.00 10/13/16 Unknown Urine Sodium 10 mEq/L 10/13/16 Unknown Urine Potassium 1.00 mEq/L 10/13/16 Unknown Urine Chloride 10.0 mEq/L (110-250) L 10/13/16 Unknown Urine Total Protein < 4 mg/dL (5-11.8) L 10/13/16 Unknown Vancomycin Trough 17.7 ug/mL (5.0-20.0) 10/22/16 10:25 Ketones 107.3 mg/dL (0.2-2.8) H 10/13/16 04:22 Blood Type A POSITIVE 10/22/16 20:00 Antibody Screen Negative 10/22/16 20:00 Crossmatch See Detail 10/22/16 20:00
--- NOTE | 2016-10-24 18:58 | Progress Note ---
Assessment and Plan This patient remained intubated in the intensive care unit. Arrangements for percutaneous trach placement are in progress. She remains tachycardic. She is more alert and follows simple commands. Her right lower extremity does not appear to be salvageable. As her condition improves, she will likely require an [id number] amputation. This does have a high perioperative risk especially given her current condition. We'll continue to follow this patient. We'll need to discuss with her family. - Patient Problems (1) Ischemia of right lower extremity Current Visit: Yes Status: Acute (2) DKA (diabetic ketoacidoses) Current Visit: Yes Status: Acute Qualifiers: Diabetes mellitus type: D Diabetes mellitus complication detail: D (3) Acute on chronic renal failure Current Visit: Yes Status: Acute (4) Altered mental status Current Visit: Yes Status: Acute Qualifiers: Altered mental status type: A Coma depth: C Coma timing: C (5) Diabetes Current Visit: No Status: Chronic Qualifiers: Diabetes mellitus type: D Diabetes mellitus complication status: D Diabetes mellitus complication detail: D Diabetic retinopathy severity: D Proliferative retinopathy type: P Diabetes mellitus macular edema: D Diabetes mellitus jail insulin use: D Laterality: L Chronic kidney disease stage: C (6) Dyslipidemia Current Visit: No Status: Chronic (7) Hypertension Current Visit: No Status: Chronic Qualifiers: Hypertension type: H Subjective Date of service: 10/24/16 Principal diagnosis: respiratory failure on mechanical ventilatory support, DKA Interval history: Patient is awake and responds to verbal stimulus. Objective - Constitutional Vitals: Vital Signs - 12hr 10/24/16 10/24/16 10/24/16 07:00 07:01 08:00 Temperature 99.9 F H Pulse Rate 88 96 H Respiratory 18 Rate Blood Pressure 132/62 O2 Sat by Pulse 100 100 Oximetry 10/24/16 10/24/16 10/24/16 08:01 09:00 09:25 Temperature Pulse Rate 102 H 94 H 99 H Respiratory 13 18 Rate Blood Pressure 135/67 145/67 145/67 O2 Sat by Pulse 100 100 100 Oximetry 10/24/16 10/24/16 10/24/16 10:00 10:01 11:00 Temperature 101.4 F H Pulse Rate 153 H 152 H Respiratory 12 25 H Rate Blood Pressure 139/82 137/78 O2 Sat by Pulse 100 99 Oximetry 10/24/16 10/24/16 10/24/16 11:08 12:00 12:08 Temperature Pulse Rate 152 H 152 H 150 H Respiratory 18 Rate Blood Pressure 137/78 130/68 130/68 O2 Sat by Pulse 97 97 Oximetry 10/24/16 10/24/16 10/24/16 12:10 13:00 13:01 Temperature 100.5 F H Pulse Rate 151 H 83 Respiratory 18 Rate Blood Pressure 130/68 107/54 O2 Sat by Pulse 99 Oximetry 10/24/16 10/24/16 10/24/16 14:00 15:00 16:00 Temperature Pulse Rate 83 81 84 Respiratory 18 18 18 Rate Blood Pressure 112/59 113/59 112/61 O2 Sat by Pulse 98 98 Oximetry 10/24/16 10/24/16 10/24/16 16:01 17:00 17:01 Temperature 100.3 F H Pulse Rate 82 102 H Respiratory 18 Rate Blood Pressure 113/59 167/83 O2 Sat by Pulse 100 Oximetry 10/24/16 10/24/16 10/24/16 17:25 17:35 18:00 Temperature Pulse Rate 81 109 H 84 Respiratory 18 Rate Blood Pressure 138/68 166/71 138/68 O2 Sat by Pulse 98 99 Oximetry General appearance: Present: no acute distress - EENT ENT: hearing intact - Respiratory Respiratory effort: other (remains on mechanical ventilation.) Extremity abnormal: cold (pale right lower extremity with she has a heel wound as well as a darkened discoloration of the lateral aspect of her leg to the mid calf, her toes appear to be desiccating, no appreciated movement) - Psychiatric Psychiatric: cooperative (patient is awake she follows simple commands ( squeezes hands to command, moves her left foot and toes, does not move her right foot to command suspected significant motor and sensory deficit) - Labs CBC & Chem 7: 10/24/16 11:00 10/23/16 Unknown Labs: Abnormal lab results 10/23/16 10/24/16 10/24/16 Range/Units 22:55 00:05 05:30 WBC (4.5-11.0) K/mm3 RBC (3.65-5.03) M/mm3 Hgb (10.1-14.3) gm/dl Hct (30.3-42.9) % RDW (13.2-15.2) % Heparin Anti-Xa Level 0.17 L 0.13 L (0.3-0.7) U.I./ml POC ABG pCO2 (35-45) POC Glucose 118 H (70-105) 10/24/16 10/24/16 10/24/16 Range/Units 11:00 11:00 12:06 WBC 17.6 H (4.5-11.0) K/mm3 RBC 2.92 L (3.65-5.03) M/mm3 Hgb 9.2 L (10.1-14.3) gm/dl Hct 28.3 L (30.3-42.9) % RDW 16.9 H (13.2-15.2) % Heparin Anti-Xa Level 0.27 L (0.3-0.7) U.I./ml POC ABG pCO2 (35-45) POC Glucose 166 H (70-105) 10/24/16 Range/Units 12:27 WBC (4.5-11.0) K/mm3 RBC (3.65-5.03) M/mm3 Hgb (10.1-14.3) gm/dl Hct (30.3-42.9) % RDW (13.2-15.2) % Heparin Anti-Xa Level (0.3-0.7) U.I./ml POC ABG pCO2 33.9 L (35-45) POC Glucose (70-105)
--- NOTE | 2016-10-24 20:59 | Progress Note ---
Subjective Date of service: 10/24/16 Principal diagnosis: respiratory failure on mechanical ventilatory support, DKA Interval history: More awake. no new issues. Vital signs - Mild fever with temp 100.3 CHEST - [employer] ENTRY CVS - S1S2 ABD - BS_ LABS wbc trending down. ASSESSMENT 1. Sepsis 2. dka 3. resp failure 4. htn 5. clostridium difficile colitis RECOMMENDATION 1. cbc/bmp in am 2. continue current care. Objective - Constitutional Vitals: Vital Signs Temp Pulse Resp BP Pulse Ox 100.3 F H 84 18 138/68 99 10/24/16 17:00 10/24/16 18:00 10/24/16 18:00 10/24/16 18:00 10/24/16 18:00 Temperature -Last 24 Hours Temperature 100.3 F Temperature 100.5 F Temperature 101.4 F Temperature 99.9 F Temperature 99.6 F Temperature 98 F Temperature 98.9 F Temperature 98 F - Labs CBC & Chem 7: 10/24/16 11:00 10/23/16 Unknown Labs: Abnormal lab results 10/23/16 10/24/16 10/24/16 Range/Units 22:55 00:05 05:30 WBC (4.5-11.0) K/mm3 RBC (3.65-5.03) M/mm3 Hgb (10.1-14.3) gm/dl Hct (30.3-42.9) % RDW (13.2-15.2) % Heparin Anti-Xa Level 0.17 L 0.13 L (0.3-0.7) U.I./ml POC ABG pCO2 (35-45) POC Glucose 118 H (70-105) 10/24/16 10/24/16 10/24/16 Range/Units 11:00 11:00 12:06 WBC 17.6 H (4.5-11.0) K/mm3 RBC 2.92 L (3.65-5.03) M/mm3 Hgb 9.2 L (10.1-14.3) gm/dl Hct 28.3 L (30.3-42.9) % RDW 16.9 H (13.2-15.2) % Heparin Anti-Xa Level 0.27 L (0.3-0.7) U.I./ml POC ABG pCO2 (35-45) POC Glucose 166 H (70-105) 10/24/16 Range/Units 12:27 WBC (4.5-11.0) K/mm3 RBC (3.65-5.03) M/mm3 Hgb (10.1-14.3) gm/dl Hct (30.3-42.9) % RDW (13.2-15.2) % Heparin Anti-Xa Level (0.3-0.7) U.I./ml POC ABG pCO2 33.9 L (35-45) POC Glucose (70-105)
[2016-10-24] MEDS: D50W (25GM) IV PRN (23:59)
[2016-10-25 04:47] LABS: Hematocrit 28.1 % (30.3-42.9); Hemoglobin 8.8 gm/dl (10.1-14.3)
[2016-10-25] MEDS: LOPRESSOR IV SCH ×2 (05:51)
[2016-10-25] MEDS: FLAGYL PO SCH ×3 (05:52→21:30)
[2016-10-25] MEDS: LOPRESSOR FEEDTUBE SCH ×3 (06:00→21:30)
[2016-10-25] MEDS: AZACTAM/NS 1 GM/50 ML 1 GM/50 ML VIAL IV SCH ×3 (06:02→21:30)
[2016-10-25] MEDS: HEPARIN/ 0.45% NACL-25,000 UNIT/500 ML 25,000 UNITS/500 ML BAG IV SCH ×2 (06:06→20:22)
[2016-10-25] MEDS: TYLENOL FEEDTUBE PRN ×2 (06:40→20:23)
[2016-10-25] MEDS: fentaNYL DRIP Premix 2,000 MCG/100 ML BAG IV SCH ×2 (07:45→16:47)
[2016-10-25] MEDS: DIFLUCAN 200 MG/100 ML BAG IV SCH (09:52)
[2016-10-25] MEDS: PEPCID PO SCH ×2 (09:53→21:30)
[2016-10-25] MEDS: LEVEMIR SUB-Q SCH (09:53)
[2016-10-25] MEDS: VANCOMYCIN VIAL 1,250 MG in NACL 0.9% 250ML 250 ML IV SCH (09:53)
--- NOTE | 2016-10-25 11:26 | Progress Note ---
Assessment and Plan - Patient Problems (1) Acute respiratory failure with hypercapnia Current Visit: Yes Status: Acute Plan to address problem: - continue aspiration precautions / VAP bundles - continue bronchodilators and pulmonary toilet - continue to wean oxygen to keep sats > 94% - resume graded weaning at Psupp of 20 cmH2O - ETT day # 13-14 and seen by surgery re: tracheostomy - continue daily PSV trials in meantime as tolerated (2) Altered mental status Current Visit: Yes Status: Acute Qualifiers: Altered mental status type: A Coma depth: C Coma timing: C Plan to address problem: - no active seizures - following clinically - seen by neurology and will follow their recommendations - no seizures on EEG (3) LUCY (acute kidney injury) Current Visit: Yes Status: Acute Plan to address problem: - continue free water flushes - follow I's & O's - improving numbers (4) DKA (diabetic ketoacidoses) Current Visit: Yes Status: Acute Qualifiers: Diabetes mellitus type: D Diabetes mellitus complication detail: D Plan to address problem: - off IV insulin - continue SSI - continue enteral nutrition as tolerated (5) Sepsis Current Visit: No Status: Acute Qualifiers: Sepsis type: S Plan to address problem: - continue anti-infectives per ID recs - follow clinically - trend lactate and CRP prn - continue other care as documented (6) Tachycardia Current Visit: Yes Status: Acute Plan to address problem: - tolerating metoprolol - treat pain prn (7) Discharge planning issues Current Visit: No Status: Acute Plan to address problem: - Awaiting tracheostomy ...remains critically ill on life sustaining treatments including MVS and at high risk for further deterioration including ...34' CCT Subjective Date of service: 10/25/16 Principal diagnosis: respiratory failure on mechanical ventilatory support, DKA Interval history: Seen and examined at bedside; 24 hour events reviewed; nursing and respiratory care staff consulted; no adverse overnight events reported to me; remains on MVS ; no N/V/F/C; still not weaning well and awaiting tracheostomy; AMS is persistent; visited earlier; no emesis or overt aspiration and remains on IV heparin therapy Objective Vital Signs - 12hr 10/25/16 10/25/16 10/25/16 00:00 00:22 00:38 Temperature 98.7 F Pulse Rate 87 95 H Pulse Rate [ Apical] Pulse Rate [ 83 From Monitor] Respiratory 18 Rate Blood Pressure 125/58 125/50 O2 Sat by Pulse 96 100 Oximetry 10/25/16 10/25/16 10/25/16 01:00 02:00 03:01 Temperature Pulse Rate 86 80 100 H Pulse Rate [ Apical] Pulse Rate [ From Monitor] Respiratory 19 19 10 L Rate Blood Pressure 130/65 122/61 157/78 O2 Sat by Pulse 99 98 100 Oximetry 10/25/16 10/25/16 10/25/16 04:00 05:01 05:39 Temperature Pulse Rate 102 H 104 H 103 H Pulse Rate [ Apical] Pulse Rate [ 115 H From Monitor] Respiratory 21 18 Rate Blood Pressure 169/84 134/79 134/79 O2 Sat by Pulse 100 98 100 Oximetry 10/25/16 10/25/16 10/25/16 05:51 06:00 07:01 Temperature 102.1 F H Pulse Rate 130 H 103 H 108 H Pulse Rate [ Apical] Pulse Rate [ From Monitor] Respiratory 13 18 Rate Blood Pressure 134/79 179/80 138/64 O2 Sat by Pulse 100 100 Oximetry 10/25/16 10/25/16 10/25/16 08:00 08:01 08:15 Temperature Pulse Rate 124 H 118 H Pulse Rate [ 119 H Apical] Pulse Rate [ 119 H From Monitor] Respiratory 28 H 19 Rate Blood Pressure 95/72 122/79 O2 Sat by Pulse 100 100 100 Oximetry 10/25/16 10/25/16 10/25/16 09:00 10:01 11:00 Temperature Pulse Rate 108 H 99 H 97 H Pulse Rate [ Apical] Pulse Rate [ From Monitor] Respiratory 14 12 20 Rate Blood Pressure 122/79 135/65 129/58 O2 Sat by Pulse 100 100 100 Oximetry 10/25/16 11:16 Temperature Pulse Rate 91 H Pulse Rate [ Apical] Pulse Rate [ From Monitor] Respiratory Rate Blood Pressure 129/58 O2 Sat by Pulse 100 Oximetry Constitutional: no acute distress, appears uncomfortable, other (? delirium / dementia element) Eyes: non-icteric ENT: oropharynx moist Neck: supple, no lymphadenopathy Effort: mildly labored Ascultation: Bilateral: diminished breath sounds, rales (bases) Cardiovascular: regular rate and rhythm, other (tachycardia) Gastrointestinal: normoactive bowel sounds, soft, non-tender, non-distended Integumentary: normal Extremities: no cyanosis, no edema, no ischemia or petechiae, other (cold right foot with digital ischemia) Neurologic: non-focal exam (grossly), unable to assess Psychiatric: other (sedated) CBC and BMP: 10/25/16 03:30 10/23/16 Unknown ABG, PT/INR, D-dimer: ABG POC ABG pH 7.386 (7.35-7.45) 10/24/16 12:27 POC ABG pCO2 33.9 (35-45) L 10/24/16 12:27 POC ABG pO2 92 (80-105) 10/24/16 12:27 POC ABG HCO3 20.3 10/24/16 12:27 POC ABG Total CO2 21 10/24/16 12:27 POC ABG O2 Sat 97 10/24/16 12:27 PT/INR, D-dimer PT 16.4 Sec. (12.2-14.9) H 10/17/16 16:07 INR 1.33 (0.87-1.13) H 10/17/16 16:07 Abnormal lab findings: Abnormal Labs 10/13/16 10/13/16 10/13/16 06:38 06:38 07:23 WBC RBC Hgb Hct MCV RDW Plt Count Lymph % (Auto) Stark % (Auto) Stark # Seg Neutrophils % Seg Neuts % (Manual) Lymphocytes % (Manual) Monocytes % (Manual) Seg Neutrophils # Seg Neutrophils # Man Lymphocytes # (Manual) Monocytes # (Manual) Eosinophils # (Manual) Basophils # (Manual) PT INR APTT Heparin Anti-Xa Level POC ABG pH POC ABG pCO2 POC ABG pO2 Sodium Potassium 6.2 H* Chloride Carbon Dioxide 8 L* BUN 85 H Creatinine 2.8 H Glucose 602 H* POC Glucose 495 H Calcium 7.9 L Phosphorus 6.9 H D Magnesium 3.0 H AST C-Reactive Protein Total Protein Albumin Lipase Vitamin B12 TSH Urine WBC (Auto) Urine Chloride Urine Total Protein Crossmatch 10/13/16 10/13/16 10/13/16 08:49 08:55 10:12 WBC RBC Hgb Hct MCV RDW Plt Count Lymph % (Auto) Stark % (Auto) Stark # Seg Neutrophils % Seg Neuts % (Manual) Lymphocytes % (Manual) Monocytes % (Manual) Seg Neutrophils # Seg Neutrophils # Man Lymphocytes # (Manual) Monocytes # (Manual) Eosinophils # (Manual) Basophils # (Manual) PT INR APTT Heparin Anti-Xa Level POC ABG pH POC ABG pCO2 POC ABG pO2 Sodium Potassium 5.6 H Chloride Carbon Dioxide 11 L BUN 77 H Creatinine 2.7 H Glucose 457 H POC Glucose > 500 H 424 H Calcium 8.0 L Phosphorus Magnesium AST C-Reactive Protein Total Protein Albumin Lipase Vitamin B12 TSH Urine WBC (Auto) Urine Chloride Urine Total Protein Crossmatch 10/13/16 10/13/16 10/13/16 10:44 11:22 12:20 WBC RBC Hgb Hct MCV RDW Plt Count Lymph % (Auto) Stark % (Auto) Stark # Seg Neutrophils % Seg Neuts % (Manual) Lymphocytes % (Manual) Monocytes % (Manual) Seg Neutrophils # Seg Neutrophils # Man Lymphocytes # (Manual) Monocytes # (Manual) Eosinophils # (Manual) Basophils # (Manual) PT INR APTT Heparin Anti-Xa Level POC ABG pH POC ABG pCO2 POC ABG pO2 Sodium Potassium 5.4 H Chloride Carbon Dioxide 14 L BUN 72 H Creatinine 2.6 H Glucose 383 H POC Glucose 391 H 313 H Calcium 8.2 L Phosphorus Magnesium AST C-Reactive Protein Total Protein Albumin Lipase Vitamin B12 TSH Urine WBC (Auto) Urine Chloride Urine Total Protein Crossmatch 10/13/16 10/13/16 10/13/16 13:32 14:44 15:57 WBC RBC Hgb Hct MCV RDW Plt Count Lymph % (Auto) Stark % (Auto) Stark # Seg Neutrophils % Seg Neuts % (Manual) Lymphocytes % (Manual) Monocytes % (Manual) Seg Neutrophils # Seg Neutrophils # Man Lymphocytes # (Manual) Monocytes # (Manual) Eosinophils # (Manual) Basophils # (Manual) PT INR APTT Heparin Anti-Xa Level POC ABG pH POC ABG pCO2 POC ABG pO2 Sodium Potassium Chloride Carbon Dioxide BUN Creatinine Glucose POC Glucose 296 H 210 H 190 H Calcium Phosphorus Magnesium AST C-Reactive Protein Total Protein Albumin Lipase Vitamin B12 TSH Urine WBC (Auto) Urine Chloride Urine Total Protein Crossmatch 10/13/16 10/13/16 10/13/16 16:14 16:14 17:17 WBC RBC Hgb Hct MCV RDW Plt Count Lymph % (Auto) Stark % (Auto) Stark # Seg Neutrophils % Seg Neuts % (Manual) Lymphocytes % (Manual) Monocytes % (Manual) Seg Neutrophils # Seg Neutrophils # Man Lymphocytes # (Manual) Monocytes # (Manual) Eosinophils # (Manual) Basophils # (Manual) PT INR APTT Heparin Anti-Xa Level POC ABG pH POC ABG pCO2 POC ABG pO2 Sodium Potassium Chloride Carbon Dioxide 17 L BUN 58 H Creatinine 1.8 H Glucose 172 H POC Glucose 193 H Calcium 7.7 L Phosphorus Magnesium AST C-Reactive Protein 10.50 H Total Protein Albumin Lipase Vitamin B12 TSH Urine WBC (Auto) Urine Chloride Urine Total Protein Crossmatch 10/13/16 10/13/16 10/13/16 17:55 18:32 19:41 WBC RBC Hgb Hct MCV RDW Plt Count Lymph % (Auto) Stark % (Auto) Stark # Seg Neutrophils % Seg Neuts % (Manual) Lymphocytes % (Manual) Monocytes % (Manual) Seg Neutrophils # Seg Neutrophils # Man Lymphocytes # (Manual) Monocytes # (Manual) Eosinophils # (Manual) Basophils # (Manual) PT INR APTT Heparin Anti-Xa Level POC ABG pH POC ABG pCO2 30.6 L POC ABG pO2 218 H Sodium Potassium Chloride Carbon Dioxide BUN Creatinine Glucose POC Glucose 192 H 177 H Calcium Phosphorus Magnesium AST C-Reactive Protein Total Protein Albumin Lipase Vitamin B12 TSH Urine WBC (Auto) Urine Chloride Urine Total Protein Crossmatch 10/13/16 10/13/16 10/13/16 20:54 22:07 23:13 WBC RBC Hgb Hct MCV RDW Plt Count Lymph % (Auto) Stark % (Auto) Stark # Seg Neutrophils % Seg Neuts % (Manual) Lymphocytes % (Manual) Monocytes % (Manual) Seg Neutrophils # Seg Neutrophils # Man Lymphocytes # (Manual) Monocytes # (Manual) Eosinophils # (Manual) Basophils # (Manual) PT INR APTT Heparin Anti-Xa Level POC ABG pH POC ABG pCO2 POC ABG pO2 Sodium Potassium Chloride Carbon Dioxide BUN Creatinine Glucose POC Glucose 178 H 160 H 168 H Calcium Phosphorus Magnesium AST C-Reactive Protein Total Protein Albumin Lipase Vitamin B12 TSH Urine WBC (Auto) Urine Chloride Urine Total Protein Crossmatch 10/13/16 10/13/16 10/14/16 23:25 Unknown 00:21 WBC RBC Hgb Hct MCV RDW Plt Count Lymph % (Auto) Stark % (Auto) Stark # Seg Neutrophils % Seg Neuts % (Manual) Lymphocytes % (Manual) Monocytes % (Manual) Seg Neutrophils # Seg Neutrophils # Man Lymphocytes # (Manual) Monocytes # (Manual) Eosinophils # (Manual) Basophils # (Manual) PT INR APTT Heparin Anti-Xa Level POC ABG pH POC ABG pCO2 POC ABG pO2 Sodium 148 H Potassium Chloride 114.6 H Carbon Dioxide 17 L BUN 56 H Creatinine 1.6 H Glucose 151 H POC Glucose 171 H Calcium 7.8 L Phosphorus Magnesium AST C-Reactive Protein Total Protein Albumin Lipase Vitamin B12 TSH Urine WBC (Auto) Urine Chloride 10.0 L Urine Total Protein < 4 L Crossmatch 10/14/16 10/14/16 10/14/16 01:22 02:29 03:30 WBC RBC Hgb Hct MCV RDW Plt Count Lymph % (Auto) Stark % (Auto) Stark # Seg Neutrophils % Seg Neuts % (Manual) Lymphocytes % (Manual) Monocytes % (Manual) Seg Neutrophils # Seg Neutrophils # Man Lymphocytes # (Manual) Monocytes # (Manual) Eosinophils # (Manual) Basophils # (Manual) PT INR APTT Heparin Anti-Xa Level POC ABG pH POC ABG pCO2 POC ABG pO2 Sodium Potassium Chloride Carbon Dioxide BUN Creatinine Glucose POC Glucose 144 H 136 H 143 H Calcium Phosphorus Magnesium AST C-Reactive Protein Total Protein Albumin Lipase Vitamin B12 TSH Urine WBC (Auto) Urine Chloride Urine Total Protein Crossmatch 10/14/16 10/14/16 10/14/16 04:28 05:16 05:44 WBC RBC Hgb Hct MCV RDW Plt Count Lymph % (Auto) Stark % (Auto) Stark # Seg Neutrophils % Seg Neuts % (Manual) Lymphocytes % (Manual) Monocytes % (Manual) Seg Neutrophils # Seg Neutrophils # Man Lymphocytes # (Manual) Monocytes # (Manual) Eosinophils # (Manual) Basophils # (Manual) PT INR APTT Heparin Anti-Xa Level POC ABG pH POC ABG pCO2 28.2 L POC ABG pO2 125 H Sodium Potassium Chloride Carbon Dioxide BUN Creatinine Glucose POC Glucose 133 H 160 H Calcium Phosphorus Magnesium AST C-Reactive Protein Total Protein Albumin Lipase Vitamin B12 TSH Urine WBC (Auto) Urine Chloride Urine Total Protein Crossmatch 10/14/16 10/14/16 10/14/16 06:12 06:45 07:03 WBC RBC Hgb Hct MCV RDW Plt Count Lymph % (Auto) Stark % (Auto) Stark # Seg Neutrophils % Seg Neuts % (Manual) Lymphocytes % (Manual) Monocytes % (Manual) Seg Neutrophils # Seg Neutrophils # Man Lymphocytes # (Manual) Monocytes # (Manual) Eosinophils # (Manual) Basophils # (Manual) PT INR APTT Heparin Anti-Xa Level POC ABG pH POC ABG pCO2 POC ABG pO2 Sodium 149 H Potassium Chloride 115.4 H Carbon Dioxide 17 L BUN 45 H Creatinine 1.5 H Glucose 139 H POC Glucose 149 H Calcium 7.4 L Phosphorus 1.0 L D Magnesium AST C-Reactive Protein Total Protein Albumin Lipase Vitamin B12 TSH Urine WBC (Auto) Urine Chloride Urine Total Protein Crossmatch 10/14/16 10/14/16 10/14/16 07:03 08:02 09:16 WBC RBC Hgb Hct MCV RDW Plt Count Lymph % (Auto) Stark % (Auto) Stark # Seg Neutrophils % Seg Neuts % (Manual) Lymphocytes % (Manual) Monocytes % (Manual) Seg Neutrophils # Seg Neutrophils # Man Lymphocytes # (Manual) Monocytes # (Manual) Eosinophils # (Manual) Basophils # (Manual) PT INR APTT Heparin Anti-Xa Level POC ABG pH POC ABG pCO2 POC ABG pO2 Sodium Potassium Chloride Carbon Dioxide BUN Creatinine Glucose POC Glucose 156 H 158 H Calcium Phosphorus Magnesium AST C-Reactive Protein Total Protein Albumin Lipase 738 H Vitamin B12 TSH Urine WBC (Auto) Urine Chloride Urine Total Protein Crossmatch 10/14/16 10/14/16 10/14/16 10:26 11:03 11:57 WBC RBC Hgb Hct MCV RDW Plt Count Lymph % (Auto) Stark % (Auto) Stark # Seg Neutrophils % Seg Neuts % (Manual) Lymphocytes % (Manual) Monocytes % (Manual) Seg Neutrophils # Seg Neutrophils # Man Lymphocytes # (Manual) Monocytes # (Manual) Eosinophils # (Manual) Basophils # (Manual) PT INR APTT Heparin Anti-Xa Level POC ABG pH 7.198 L POC ABG pCO2 47.5 H POC ABG pO2 Sodium Potassium Chloride Carbon Dioxide BUN Creatinine Glucose POC Glucose 174 H 189 H Calcium Phosphorus Magnesium AST C-Reactive Protein Total Protein Albumin Lipase Vitamin B12 TSH Urine WBC (Auto) Urine Chloride Urine Total Protein Crossmatch 10/14/16 10/14/16 10/14/16 12:02 12:02 13:11 WBC 13.4 H RBC 3.60 L Hgb Hct MCV 98 H D RDW 13.1 L Plt Count Lymph % (Auto) Stark % (Auto) Stark # Seg Neutrophils % Seg Neuts % (Manual) Lymphocytes % (Manual) Monocytes % (Manual) Seg Neutrophils # Seg Neutrophils # Man Lymphocytes # (Manual) Monocytes # (Manual) Eosinophils # (Manual) Basophils # (Manual) PT INR APTT Heparin Anti-Xa Level POC ABG pH POC ABG pCO2 POC ABG pO2 Sodium Potassium Chloride 110.7 H Carbon Dioxide 19 L BUN 38 H Creatinine 1.4 H Glucose 182 H POC Glucose 173 H Calcium 7.5 L Phosphorus Magnesium AST C-Reactive Protein Total Protein Albumin Lipase Vitamin B12 TSH Urine WBC (Auto) Urine Chloride Urine Total Protein Crossmatch 10/14/16 10/14/16 10/14/16 14:24 15:31 16:36 WBC RBC Hgb Hct MCV RDW Plt Count Lymph % (Auto) Stark % (Auto) Stark # Seg Neutrophils % Seg Neuts % (Manual) Lymphocytes % (Manual) Monocytes % (Manual) Seg Neutrophils # Seg Neutrophils # Man Lymphocytes # (Manual) Monocytes # (Manual) Eosinophils # (Manual) Basophils # (Manual) PT INR APTT Heparin Anti-Xa Level POC ABG pH POC ABG pCO2 POC ABG pO2 Sodium Potassium Chloride Carbon Dioxide BUN Creatinine Glucose POC Glucose 123 H 124 H 156 H Calcium Phosphorus Magnesium AST C-Reactive Protein Total Protein Albumin Lipase Vitamin B12 TSH Urine WBC (Auto) Urine Chloride Urine Total Protein Crossmatch 10/14/16 10/14/16 10/14/16 17:43 19:00 20:08 WBC RBC Hgb Hct MCV RDW Plt Count Lymph % (Auto) Stark % (Auto) Stark # Seg Neutrophils % Seg Neuts % (Manual) Lymphocytes % (Manual) Monocytes % (Manual) Seg Neutrophils # Seg Neutrophils # Man Lymphocytes # (Manual) Monocytes # (Manual) Eosinophils # (Manual) Basophils # (Manual) PT INR APTT Heparin Anti-Xa Level POC ABG pH POC ABG pCO2 POC ABG pO2 Sodium Potassium Chloride Carbon Dioxide BUN Creatinine Glucose POC Glucose 154 H 123 H 138 H Calcium Phosphorus Magnesium AST C-Reactive Protein Total Protein Albumin Lipase Vitamin B12 TSH Urine WBC (Auto) Urine Chloride Urine Total Protein Crossmatch 10/14/16 10/14/16 10/14/16 21:17 22:25 23:37 WBC RBC Hgb Hct MCV RDW Plt Count Lymph % (Auto) Stark % (Auto) Stark # Seg Neutrophils % Seg Neuts % (Manual) Lymphocytes % (Manual) Monocytes % (Manual) Seg Neutrophils # Seg Neutrophils # Man Lymphocytes # (Manual) Monocytes # (Manual) Eosinophils # (Manual) Basophils # (Manual) PT INR APTT Heparin Anti-Xa Level POC ABG pH POC ABG pCO2 POC ABG pO2 Sodium Potassium Chloride Carbon Dioxide BUN Creatinine Glucose POC Glucose 148 H 132 H 137 H Calcium Phosphorus Magnesium AST C-Reactive Protein Total Protein Albumin Lipase Vitamin B12 TSH Urine WBC (Auto) Urine Chloride Urine Total Protein Crossmatch 10/15/16 10/15/16 10/15/16 00:49 01:53 03:06 WBC RBC Hgb Hct MCV RDW Plt Count Lymph % (Auto) Stark % (Auto) Stark # Seg Neutrophils % Seg Neuts % (Manual) Lymphocytes % (Manual) Monocytes % (Manual) Seg Neutrophils # Seg Neutrophils # Man Lymphocytes # (Manual) Monocytes # (Manual) Eosinophils # (Manual) Basophils # (Manual) PT INR APTT Heparin Anti-Xa Level POC ABG pH POC ABG pCO2 POC ABG pO2 Sodium Potassium Chloride Carbon Dioxide BUN Creatinine Glucose POC Glucose 132 H 134 H 134 H Calcium Phosphorus Magnesium AST C-Reactive Protein Total Protein Albumin Lipase Vitamin B12 TSH Urine WBC (Auto) Urine Chloride Urine Total Protein Crossmatch 10/15/16 10/15/16 10/15/16 04:40 04:46 06:21 WBC RBC Hgb Hct MCV RDW Plt Count Lymph % (Auto) Stark % (Auto) Stark # Seg Neutrophils % Seg Neuts % (Manual) Lymphocytes % (Manual) Monocytes % (Manual) Seg Neutrophils # Seg Neutrophils # Man Lymphocytes # (Manual) Monocytes # (Manual) Eosinophils # (Manual) Basophils # (Manual) PT INR APTT Heparin Anti-Xa Level POC ABG pH POC ABG pCO2 30.7 L POC ABG pO2 108 H Sodium Potassium Chloride 109.0 H Carbon Dioxide 17 L BUN 27 H Creatinine Glucose 124 H POC Glucose 160 H Calcium 7.5 L Phosphorus Magnesium AST 79 H C-Reactive Protein Total Protein 5.5 L Albumin 3.0 L Lipase Vitamin B12 TSH Urine WBC (Auto) Urine Chloride Urine Total Protein Crossmatch 10/15/16 10/15/16 10/15/16 07:12 08:01 09:03 WBC RBC Hgb Hct MCV RDW Plt Count Lymph % (Auto) Stark % (Auto) Stark # Seg Neutrophils % Seg Neuts % (Manual) Lymphocytes % (Manual) Monocytes % (Manual) Seg Neutrophils # Seg Neutrophils # Man Lymphocytes # (Manual) Monocytes # (Manual) Eosinophils # (Manual) Basophils # (Manual) PT INR APTT Heparin Anti-Xa Level POC ABG pH POC ABG pCO2 POC ABG pO2 Sodium Potassium Chloride Carbon Dioxide BUN Creatinine Glucose POC Glucose 179 H 187 H 165 H Calcium Phosphorus Magnesium AST C-Reactive Protein Total Protein Albumin Lipase Vitamin B12 TSH Urine WBC (Auto) Urine Chloride Urine Total Protein Crossmatch 10/15/16 10/15/16 10/15/16 10:06 10:06 10:07 WBC 12.1 H RBC 3.01 L Hgb 9.7 L Hct 29.6 L MCV 98 H RDW Plt Count 129 L Lymph % (Auto) Stark % (Auto) Stark # Seg Neutrophils % Seg Neuts % (Manual) Lymphocytes % (Manual) Monocytes % (Manual) Seg Neutrophils # Seg Neutrophils # Man Lymphocytes # (Manual) Monocytes # (Manual) Eosinophils # (Manual) Basophils # (Manual) PT INR APTT Heparin Anti-Xa Level POC ABG pH POC ABG pCO2 POC ABG pO2 Sodium Potassium 3.2 L D Chloride 109.6 H Carbon Dioxide 18 L BUN 22 H Creatinine Glucose 127 H POC Glucose 147 H Calcium 7.0 L Phosphorus Magnesium AST C-Reactive Protein Total Protein Albumin Lipase Vitamin B12 TSH Urine WBC (Auto) Urine Chloride Urine Total Protein Crossmatch 10/15/16 10/15/16 10/15/16 11:05 11:06 11:57 WBC RBC Hgb Hct MCV RDW Plt Count Lymph % (Auto) Stark % (Auto) Stark # Seg Neutrophils % Seg Neuts % (Manual) Lymphocytes % (Manual) Monocytes % (Manual) Seg Neutrophils # Seg Neutrophils # Man Lymphocytes # (Manual) Monocytes # (Manual) Eosinophils # (Manual) Basophils # (Manual) PT INR APTT Heparin Anti-Xa Level POC ABG pH 7.305 L POC ABG pCO2 POC ABG pO2 Sodium Potassium Chloride Carbon Dioxide BUN Creatinine Glucose POC Glucose 145 H Calcium Phosphorus Magnesium AST C-Reactive Protein Total Protein Albumin Lipase Vitamin B12 TSH Urine WBC (Auto) 7.0 H Urine Chloride Urine Total Protein Crossmatch 10/15/16 10/15/16 10/15/16 12:04 13:59 15:24 WBC RBC Hgb Hct MCV RDW Plt Count Lymph % (Auto) Stark % (Auto) Stark # Seg Neutrophils % Seg Neuts % (Manual) Lymphocytes % (Manual) Monocytes % (Manual) Seg Neutrophils # Seg Neutrophils # Man Lymphocytes # (Manual) Monocytes # (Manual) Eosinophils # (Manual) Basophils # (Manual) PT INR APTT Heparin Anti-Xa Level POC ABG pH POC ABG pCO2 POC ABG pO2 Sodium Potassium Chloride Carbon Dioxide BUN Creatinine Glucose POC Glucose 123 H 147 H 153 H Calcium Phosphorus Magnesium AST C-Reactive Protein Total Protein Albumin Lipase Vitamin B12 TSH Urine WBC (Auto) Urine Chloride Urine Total Protein Crossmatch 10/15/16 10/15/16 10/15/16 16:30 17:34 18:30 WBC RBC Hgb Hct MCV RDW Plt Count Lymph % (Auto) Stark % (Auto) Stark # Seg Neutrophils % Seg Neuts % (Manual) Lymphocytes % (Manual) Monocytes % (Manual) Seg Neutrophils # Seg Neutrophils # Man Lymphocytes # (Manual) Monocytes # (Manual) Eosinophils # (Manual) Basophils # (Manual) PT INR APTT Heparin Anti-Xa Level POC ABG pH POC ABG pCO2 POC ABG pO2 Sodium Potassium Chloride Carbon Dioxide BUN Creatinine Glucose POC Glucose 223 H 236 H 164 H Calcium Phosphorus Magnesium AST C-Reactive Protein Total Protein Albumin Lipase Vitamin B12 TSH Urine WBC (Auto) Urine Chloride Urine Total Protein Crossmatch 10/15/16 10/15/16 10/15/16 19:14 20:31 21:23 WBC RBC Hgb Hct MCV RDW Plt Count Lymph % (Auto) Stark % (Auto) Stark # Seg Neutrophils % Seg Neuts % (Manual) Lymphocytes % (Manual) Monocytes % (Manual) Seg Neutrophils # Seg Neutrophils # Man Lymphocytes # (Manual) Monocytes # (Manual) Eosinophils # (Manual) Basophils # (Manual) PT INR APTT Heparin Anti-Xa Level POC ABG pH POC ABG pCO2 POC ABG pO2 Sodium Potassium Chloride Carbon Dioxide BUN Creatinine Glucose POC Glucose 138 H 158 H 158 H Calcium Phosphorus Magnesium AST C-Reactive Protein Total Protein Albumin Lipase Vitamin B12 TSH Urine WBC (Auto) Urine Chloride Urine Total Protein Crossmatch 10/15/16 10/15/16 10/16/16 22:04 22:57 00:11 WBC RBC Hgb Hct MCV RDW Plt Count Lymph % (Auto) Stark % (Auto) Stark # Seg Neutrophils % Seg Neuts % (Manual) Lymphocytes % (Manual) Monocytes % (Manual) Seg Neutrophils # Seg Neutrophils # Man Lymphocytes # (Manual) Monocytes # (Manual) Eosinophils # (Manual) Basophils # (Manual) PT INR APTT Heparin Anti-Xa Level POC ABG pH POC ABG pCO2 POC ABG pO2 Sodium Potassium Chloride Carbon Dioxide BUN Creatinine Glucose POC Glucose 168 H 213 H 166 H Calcium Phosphorus Magnesium AST C-Reactive Protein Total Protein Albumin Lipase Vitamin B12 TSH Urine WBC (Auto) Urine Chloride Urine Total Protein Crossmatch 10/16/16 10/16/16 10/16/16 01:16 02:32 03:38 WBC RBC Hgb Hct MCV RDW Plt Count Lymph % (Auto) Stark % (Auto) Stark # Seg Neutrophils % Seg Neuts % (Manual) Lymphocytes % (Manual) Monocytes % (Manual) Seg Neutrophils # Seg Neutrophils # Man Lymphocytes # (Manual) Monocytes # (Manual) Eosinophils # (Manual) Basophils # (Manual) PT INR APTT Heparin Anti-Xa Level POC ABG pH POC ABG pCO2 POC ABG pO2 Sodium Potassium Chloride Carbon Dioxide BUN Creatinine Glucose POC Glucose 171 H 164 H 147 H Calcium Phosphorus Magnesium AST C-Reactive Protein Total Protein Albumin Lipase Vitamin B12 TSH Urine WBC (Auto) Urine Chloride Urine Total Protein Crossmatch 10/16/16 10/16/16 10/16/16 04:14 04:14 04:49 WBC RBC Hgb Hct MCV RDW Plt Count Lymph % (Auto) Stark % (Auto) Stark # Seg Neutrophils % Seg Neuts % (Manual) Lymphocytes % (Manual) Monocytes % (Manual) Seg Neutrophils # Seg Neutrophils # Man Lymphocytes # (Manual) Monocytes # (Manual) Eosinophils # (Manual) Basophils # (Manual) PT INR APTT Heparin Anti-Xa Level POC ABG pH POC ABG pCO2 POC ABG pO2 Sodium 147 H Potassium Chloride 110.9 H Carbon Dioxide 19 L BUN Creatinine Glucose 139 H POC Glucose 144 H Calcium 7.3 L Phosphorus 2.3 L Magnesium AST C-Reactive Protein Total Protein Albumin Lipase 143 H Vitamin B12 TSH Urine WBC (Auto) Urine Chloride Urine Total Protein Crossmatch 10/16/16 10/16/16 10/16/16 05:03 05:41 05:58 WBC 16.5 H RBC 3.36 L Hgb Hct MCV 98 H RDW 13.1 L Plt Count Lymph % (Auto) 8.5 L Stark % (Auto) 7.6 H Stark # 1.3 H Seg Neutrophils % 83.3 H Seg Neuts % (Manual) Lymphocytes % (Manual) Monocytes % (Manual) Seg Neutrophils # 13.8 H Seg Neutrophils # Man Lymphocytes # (Manual) Monocytes # (Manual) Eosinophils # (Manual) Basophils # (Manual) PT INR APTT Heparin Anti-Xa Level POC ABG pH POC ABG pCO2 30.7 L POC ABG pO2 128 H Sodium Potassium Chloride Carbon Dioxide BUN Creatinine Glucose POC Glucose 131 H Calcium Phosphorus Magnesium AST C-Reactive Protein Total Protein Albumin Lipase Vitamin B12 TSH Urine WBC (Auto) Urine Chloride Urine Total Protein Crossmatch 10/16/16 10/16/16 10/16/16 06:32 09:27 09:35 WBC RBC Hgb Hct MCV RDW Plt Count Lymph % (Auto) Stark % (Auto) Stark # Seg Neutrophils % Seg Neuts % (Manual) Lymphocytes % (Manual) Monocytes % (Manual) Seg Neutrophils # Seg Neutrophils # Man Lymphocytes # (Manual) Monocytes # (Manual) Eosinophils # (Manual) Basophils # (Manual) PT INR APTT Heparin Anti-Xa Level POC ABG pH POC ABG pCO2 32.8 L POC ABG pO2 137 H Sodium Potassium Chloride Carbon Dioxide BUN Creatinine Glucose POC Glucose 121 H 150 H Calcium Phosphorus Magnesium AST C-Reactive Protein Total Protein Albumin Lipase Vitamin B12 TSH Urine WBC (Auto) Urine Chloride Urine Total Protein Crossmatch 10/16/16 10/16/16 10/16/16 10:47 13:27 14:24 WBC RBC Hgb Hct MCV RDW Plt Count Lymph % (Auto) Stark % (Auto) Stark # Seg Neutrophils % Seg Neuts % (Manual) Lymphocytes % (Manual) Monocytes % (Manual) Seg Neutrophils # Seg Neutrophils # Man Lymphocytes # (Manual) Monocytes # (Manual) Eosinophils # (Manual) Basophils # (Manual) PT INR APTT Heparin Anti-Xa Level POC ABG pH POC ABG pCO2 POC ABG pO2 Sodium Potassium Chloride Carbon Dioxide BUN Creatinine Glucose POC Glucose 184 H 171 H 174 H Calcium Phosphorus Magnesium AST C-Reactive Protein Total Protein Albumin Lipase Vitamin B12 TSH Urine WBC (Auto) Urine Chloride Urine Total Protein Crossmatch 10/16/16 10/16/16 10/16/16 15:48 16:26 18:17 WBC RBC Hgb Hct MCV RDW Plt Count Lymph % (Auto) Stark % (Auto) Stark # Seg Neutrophils % Seg Neuts % (Manual) Lymphocytes % (Manual) Monocytes % (Manual) Seg Neutrophils # Seg Neutrophils # Man Lymphocytes # (Manual) Monocytes # (Manual) Eosinophils # (Manual) Basophils # (Manual) PT INR APTT Heparin Anti-Xa Level POC ABG pH POC ABG pCO2 POC ABG pO2 Sodium Potassium Chloride Carbon Dioxide BUN Creatinine Glucose POC Glucose 205 H 204 H 234 H Calcium Phosphorus Magnesium AST C-Reactive Protein Total Protein Albumin Lipase Vitamin B12 TSH Urine WBC (Auto) Urine Chloride Urine Total Protein Crossmatch 10/16/16 10/16/16 10/16/16 19:40 20:33 21:36 WBC RBC Hgb Hct MCV RDW Plt Count Lymph % (Auto) Stark % (Auto) Stark # Seg Neutrophils % Seg Neuts % (Manual) Lymphocytes % (Manual) Monocytes % (Manual) Seg Neutrophils # Seg Neutrophils # Man Lymphocytes # (Manual) Monocytes # (Manual) Eosinophils # (Manual) Basophils # (Manual) PT INR APTT Heparin Anti-Xa Level POC ABG pH POC ABG pCO2 POC ABG pO2 Sodium Potassium Chloride Carbon Dioxide BUN Creatinine Glucose POC Glucose 167 H 153 H 158 H Calcium Phosphorus Magnesium AST C-Reactive Protein Total Protein Albumin Lipase Vitamin B12 TSH Urine WBC (Auto) Urine Chloride Urine Total Protein Crossmatch 10/16/16 10/16/16 10/17/16 22:54 23:48 00:47 WBC RBC Hgb Hct MCV RDW Plt Count Lymph % (Auto) Stark % (Auto) Stark # Seg Neutrophils % Seg Neuts % (Manual) Lymphocytes % (Manual) Monocytes % (Manual) Seg Neutrophils # Seg Neutrophils # Man Lymphocytes # (Manual) Monocytes # (Manual) Eosinophils # (Manual) Basophils # (Manual) PT INR APTT Heparin Anti-Xa Level POC ABG pH POC ABG pCO2 POC ABG pO2 Sodium Potassium Chloride Carbon Dioxide BUN Creatinine Glucose POC Glucose 180 H 207 H 196 H Calcium Phosphorus Magnesium AST C-Reactive Protein Total Protein Albumin Lipase Vitamin B12 TSH Urine WBC (Auto) Urine Chloride Urine Total Protein Crossmatch 10/17/16 10/17/16 10/17/16 01:57 02:49 03:50 WBC RBC Hgb Hct MCV RDW Plt Count Lymph % (Auto) Stark % (Auto) Stark # Seg Neutrophils % Seg Neuts % (Manual) Lymphocytes % (Manual) Monocytes % (Manual) Seg Neutrophils # Seg Neutrophils # Man Lymphocytes # (Manual) Monocytes # (Manual) Eosinophils # (Manual) Basophils # (Manual) PT INR APTT Heparin Anti-Xa Level POC ABG pH POC ABG pCO2 POC ABG pO2 Sodium Potassium Chloride Carbon Dioxide BUN Creatinine Glucose POC Glucose 180 H 151 H 106 H Calcium Phosphorus Magnesium AST C-Reactive Protein Total Protein Albumin Lipase Vitamin B12 TSH Urine WBC (Auto) Urine Chloride Urine Total Protein Crossmatch 10/17/16 10/17/16 10/17/16 04:59 06:03 06:35 WBC RBC Hgb Hct MCV RDW Plt Count Lymph % (Auto) Stark % (Auto) Stark # Seg Neutrophils % Seg Neuts % (Manual) Lymphocytes % (Manual) Monocytes % (Manual) Seg Neutrophils # Seg Neutrophils # Man Lymphocytes # (Manual) Monocytes # (Manual) Eosinophils # (Manual) Basophils # (Manual) PT INR APTT Heparin Anti-Xa Level POC ABG pH 7.453 H POC ABG pCO2 30.1 L POC ABG pO2 111 H Sodium Potassium Chloride Carbon Dioxide BUN Creatinine Glucose POC Glucose 145 H 157 H Calcium Phosphorus Magnesium AST C-Reactive Protein Total Protein Albumin Lipase Vitamin B12 TSH Urine WBC (Auto) Urine Chloride Urine Total Protein Crossmatch 10/17/16 10/17/16 10/17/16 07:08 07:11 08:01 WBC RBC Hgb Hct MCV RDW Plt Count Lymph % (Auto) Stark % (Auto) Stark # Seg Neutrophils % Seg Neuts % (Manual) Lymphocytes % (Manual) Monocytes % (Manual) Seg Neutrophils # Seg Neutrophils # Man Lymphocytes # (Manual) Monocytes # (Manual) Eosinophils # (Manual) Basophils # (Manual) PT INR APTT Heparin Anti-Xa Level POC ABG pH POC ABG pCO2 POC ABG pO2 Sodium 147 H Potassium Chloride 113.8 H Carbon Dioxide 19 L BUN Creatinine Glucose 136 H POC Glucose 136 H 152 H Calcium 7.7 L Phosphorus Magnesium AST C-Reactive Protein Total Protein Albumin Lipase Vitamin B12 TSH Urine WBC (Auto) Urine Chloride Urine Total Protein Crossmatch 10/17/16 10/17/16 10/17/16 08:23 09:17 09:53 WBC 18.1 H RBC 3.01 L Hgb 9.7 L Hct 29.4 L MCV 98 H RDW Plt Count 116 L Lymph % (Auto) Stark % (Auto) Stark # Seg Neutrophils % Seg Neuts % (Manual) 77.0 H Lymphocytes % (Manual) 4.0 L Monocytes % (Manual) 12.0 H Seg Neutrophils # Seg Neutrophils # Man 13.9 H Lymphocytes # (Manual) 0.7 L Monocytes # (Manual) 2.2 H Eosinophils # (Manual) Basophils # (Manual) PT INR APTT Heparin Anti-Xa Level POC ABG pH POC ABG pCO2 POC ABG pO2 Sodium Potassium Chloride Carbon Dioxide BUN Creatinine Glucose POC Glucose 148 H 137 H Calcium Phosphorus Magnesium AST C-Reactive Protein Total Protein Albumin Lipase Vitamin B12 TSH Urine WBC (Auto) Urine Chloride Urine Total Protein Crossmatch 10/17/16 10/17/16 10/17/16 11:43 16:07 17:42 WBC RBC Hgb Hct MCV RDW Plt Count Lymph % (Auto) Stark % (Auto) Stark # Seg Neutrophils % Seg Neuts % (Manual) Lymphocytes % (Manual) Monocytes % (Manual) Seg Neutrophils # Seg Neutrophils # Man Lymphocytes # (Manual) Monocytes # (Manual) Eosinophils # (Manual) Basophils # (Manual) PT 16.4 H INR 1.33 H APTT 38.8 H Heparin Anti-Xa Level POC ABG pH POC ABG pCO2 POC ABG pO2 Sodium Potassium Chloride Carbon Dioxide BUN Creatinine Glucose POC Glucose 179 H 153 H Calcium Phosphorus Magnesium AST C-Reactive Protein Total Protein Albumin Lipase Vitamin B12 TSH Urine WBC (Auto) Urine Chloride Urine Total Protein Crossmatch 10/17/16 10/18/16 10/18/16 22:54 04:37 05:39 WBC RBC Hgb Hct MCV RDW Plt Count Lymph % (Auto) Stark % (Auto) Stark # Seg Neutrophils % Seg Neuts % (Manual) Lymphocytes % (Manual) Monocytes % (Manual) Seg Neutrophils # Seg Neutrophils # Man Lymphocytes # (Manual) Monocytes # (Manual) Eosinophils # (Manual) Basophils # (Manual) PT INR APTT Heparin Anti-Xa Level 0.27 L POC ABG pH 7.454 H POC ABG pCO2 30.8 L POC ABG pO2 115 H Sodium Potassium Chloride Carbon Dioxide BUN Creatinine Glucose POC Glucose 69 L Calcium Phosphorus Magnesium AST C-Reactive Protein Total Protein Albumin Lipase Vitamin B12 TSH Urine WBC (Auto) Urine Chloride Urine Total Protein Crossmatch 10/18/16 10/18/16 10/18/16 06:46 06:46 06:46 WBC 20.5 H RBC 2.62 L Hgb 8.4 L Hct 26.0 L MCV 100 H RDW Plt Count Lymph % (Auto) Stark % (Auto) Stark # Seg Neutrophils % Seg Neuts % (Manual) 75.0 H Lymphocytes % (Manual) 9.0 L Monocytes % (Manual) 14.0 H Seg Neutrophils # Seg Neutrophils # Man 15.4 H Lymphocytes # (Manual) Monocytes # (Manual) 2.9 H Eosinophils # (Manual) Basophils # (Manual) PT INR APTT Heparin Anti-Xa Level POC ABG pH POC ABG pCO2 POC ABG pO2 Sodium Potassium Chloride 110.6 H Carbon Dioxide BUN Creatinine 1.3 H Glucose 153 H POC Glucose Calcium 8.0 L Phosphorus Magnesium 1.6 L AST C-Reactive Protein Total Protein Albumin Lipase Vitamin B12 TSH Urine WBC (Auto) Urine Chloride Urine Total Protein Crossmatch 10/18/16 10/18/16 10/18/16 07:30 11:37 17:51 WBC RBC Hgb Hct MCV RDW Plt Count Lymph % (Auto) Stark % (Auto) Stark # Seg Neutrophils % Seg Neuts % (Manual) Lymphocytes % (Manual) Monocytes % (Manual) Seg Neutrophils # Seg Neutrophils # Man Lymphocytes # (Manual) Monocytes # (Manual) Eosinophils # (Manual) Basophils # (Manual) PT INR APTT Heparin Anti-Xa Level POC ABG pH POC ABG pCO2 POC ABG pO2 Sodium Potassium Chloride Carbon Dioxide BUN Creatinine Glucose POC Glucose 162 H 156 H 164 H Calcium Phosphorus Magnesium AST C-Reactive Protein Total Protein Albumin Lipase Vitamin B12 TSH Urine WBC (Auto) Urine Chloride Urine Total Protein Crossmatch 10/18/16 10/19/16 10/19/16 23:44 03:59 05:13 WBC 18.2 H RBC 2.76 L Hgb 9.0 L Hct 27.7 L MCV 100 H RDW Plt Count Lymph % (Auto) Stark % (Auto) Stark # Seg Neutrophils % Seg Neuts % (Manual) 76.0 H Lymphocytes % (Manual) 10.0 L Monocytes % (Manual) Seg Neutrophils # Seg Neutrophils # Man 13.8 H Lymphocytes # (Manual) Monocytes # (Manual) Eosinophils # (Manual) Basophils # (Manual) PT INR APTT Heparin Anti-Xa Level POC ABG pH POC ABG pCO2 32.2 L POC ABG pO2 128 H Sodium Potassium Chloride Carbon Dioxide BUN Creatinine Glucose POC Glucose 278 H Calcium Phosphorus Magnesium AST C-Reactive Protein Total Protein Albumin Lipase Vitamin B12 TSH Urine WBC (Auto) Urine Chloride Urine Total Protein Crossmatch 10/19/16 10/19/16 10/19/16 06:01 06:30 12:20 WBC RBC Hgb Hct MCV RDW Plt Count Lymph % (Auto) Stark % (Auto) Stark # Seg Neutrophils % Seg Neuts % (Manual) Lymphocytes % (Manual) Monocytes % (Manual) Seg Neutrophils # Seg Neutrophils # Man Lymphocytes # (Manual) Monocytes # (Manual) Eosinophils # (Manual) Basophils # (Manual) PT INR APTT Heparin Anti-Xa Level POC ABG pH POC ABG pCO2 POC ABG pO2 Sodium Potassium Chloride Carbon Dioxide 18 L BUN Creatinine 1.3 H Glucose 262 H POC Glucose 261 H 349 H Calcium 7.7 L Phosphorus 4.8 H D Magnesium AST C-Reactive Protein Total Protein Albumin Lipase Vitamin B12 TSH Urine WBC (Auto) Urine Chloride Urine Total Protein Crossmatch 10/19/16 10/20/16 10/20/16 16:48 00:17 05:20 WBC 22.5 H RBC 2.80 L Hgb 8.9 L Hct 28.3 L MCV 101 H RDW Plt Count Lymph % (Auto) Stark % (Auto) Stark # Seg Neutrophils % Seg Neuts % (Manual) Lymphocytes % (Manual) 10.0 L Monocytes % (Manual) Seg Neutrophils # Seg Neutrophils # Man 13.3 H Lymphocytes # (Manual) Monocytes # (Manual) 1.1 H Eosinophils # (Manual) 0.7 H Basophils # (Manual) PT INR APTT Heparin Anti-Xa Level POC ABG pH POC ABG pCO2 POC ABG pO2 Sodium Potassium Chloride Carbon Dioxide BUN Creatinine Glucose POC Glucose 248 H 346 H Calcium Phosphorus Magnesium AST C-Reactive Protein Total Protein Albumin Lipase Vitamin B12 TSH Urine WBC (Auto) Urine Chloride Urine Total Protein Crossmatch 10/20/16 10/20/16 10/20/16 05:20 05:20 06:05 WBC RBC Hgb Hct MCV RDW Plt Count Lymph % (Auto) Stark % (Auto) Stark # Seg Neutrophils % Seg Neuts % (Manual) Lymphocytes % (Manual) Monocytes % (Manual) Seg Neutrophils # Seg Neutrophils # Man Lymphocytes # (Manual) Monocytes # (Manual) Eosinophils # (Manual) Basophils # (Manual) PT INR APTT Heparin Anti-Xa Level 0.20 L POC ABG pH POC ABG pCO2 POC ABG pO2 Sodium Potassium Chloride Carbon Dioxide BUN 20 H Creatinine Glucose 374 H POC Glucose 337 H Calcium 8.3 L Phosphorus Magnesium AST C-Reactive Protein Total Protein Albumin Lipase Vitamin B12 TSH Urine WBC (Auto) Urine Chloride Urine Total Protein Crossmatch 10/20/16 10/20/16 10/20/16 11:49 13:59 17:56 WBC RBC Hgb Hct MCV RDW Plt Count Lymph % (Auto) Stark % (Auto) Stark # Seg Neutrophils % Seg Neuts % (Manual) Lymphocytes % (Manual) Monocytes % (Manual) Seg Neutrophils # Seg Neutrophils # Man Lymphocytes # (Manual) Monocytes # (Manual) Eosinophils # (Manual) Basophils # (Manual) PT INR APTT Heparin Anti-Xa Level 2.00 H POC ABG pH POC ABG pCO2 POC ABG pO2 Sodium Potassium Chloride Carbon Dioxide BUN Creatinine Glucose POC Glucose 305 H 362 H Calcium Phosphorus Magnesium AST C-Reactive Protein Total Protein Albumin Lipase Vitamin B12 TSH Urine WBC (Auto) Urine Chloride Urine Total Protein Crossmatch 10/20/16 10/21/16 10/21/16 23:52 05:00 05:49 WBC 22.9 H RBC 2.49 L Hgb 7.7 L Hct 25.6 L MCV 103 H RDW Plt Count Lymph % (Auto) Stark % (Auto) Stark # Seg Neutrophils % Seg Neuts % (Manual) 94.0 H Lymphocytes % (Manual) 1.0 L Monocytes % (Manual) Seg Neutrophils # Seg Neutrophils # Man 21.5 H Lymphocytes # (Manual) 0.2 L Monocytes # (Manual) 1.1 H Eosinophils # (Manual) Basophils # (Manual) PT INR APTT Heparin Anti-Xa Level POC ABG pH POC ABG pCO2 POC ABG pO2 Sodium Potassium Chloride Carbon Dioxide BUN Creatinine Glucose POC Glucose 252 H 180 H Calcium Phosphorus Magnesium AST C-Reactive Protein Total Protein Albumin Lipase Vitamin B12 TSH Urine WBC (Auto) Urine Chloride Urine Total Protein Crossmatch 10/21/16 10/21/16 10/21/16 11:47 11:49 14:10 WBC RBC Hgb Hct MCV RDW Plt Count Lymph % (Auto) Stark % (Auto) Stark # Seg Neutrophils % Seg Neuts % (Manual) Lymphocytes % (Manual) Monocytes % (Manual) Seg Neutrophils # Seg Neutrophils # Man Lymphocytes # (Manual) Monocytes # (Manual) Eosinophils # (Manual) Basophils # (Manual) PT INR APTT Heparin Anti-Xa Level POC ABG pH POC ABG pCO2 POC ABG pO2 Sodium Potassium Chloride Carbon Dioxide BUN Creatinine Glucose POC Glucose 50 L 56 L 140 H Calcium Phosphorus Magnesium AST C-Reactive Protein Total Protein Albumin Lipase Vitamin B12 TSH Urine WBC (Auto) Urine Chloride Urine Total Protein Crossmatch 10/21/16 10/21/16 10/22/16 18:24 Unknown 00:07 WBC RBC Hgb Hct MCV RDW Plt Count Lymph % (Auto) Stark % (Auto) Stark # Seg Neutrophils % Seg Neuts % (Manual) Lymphocytes % (Manual) Monocytes % (Manual) Seg Neutrophils # Seg Neutrophils # Man Lymphocytes # (Manual) Monocytes # (Manual) Eosinophils # (Manual) Basophils # (Manual) PT INR APTT Heparin Anti-Xa Level POC ABG pH POC ABG pCO2 POC ABG pO2 Sodium 150 H Potassium 3.1 L Chloride 112.4 H Carbon Dioxide BUN 25 H Creatinine 1.4 H Glucose POC Glucose 175 H 218 H Calcium 8.0 L Phosphorus Magnesium AST C-Reactive Protein Total Protein Albumin Lipase Vitamin B12 TSH Urine WBC (Auto) Urine Chloride Urine Total Protein Crossmatch 10/22/16 10/22/16 10/22/16 04:20 04:20 10:25 WBC 20.8 H RBC 2.37 L Hgb 7.5 L Hct 23.9 L MCV 101 H RDW Plt Count Lymph % (Auto) Stark % (Auto) Stark # Seg Neutrophils % Seg Neuts % (Manual) 89.0 H Lymphocytes % (Manual) 7.0 L Monocytes % (Manual) Seg Neutrophils # Seg Neutrophils # Man 18.5 H Lymphocytes # (Manual) Monocytes # (Manual) Eosinophils # (Manual) Basophils # (Manual) 0.2 H PT INR APTT Heparin Anti-Xa Level POC ABG pH POC ABG pCO2 POC ABG pO2 Sodium 148 H Potassium 2.9 L* Chloride 109.4 H Carbon Dioxide BUN 26 H Creatinine Glucose 140 H POC Glucose Calcium 7.5 L Phosphorus Magnesium AST C-Reactive Protein Total Protein Albumin Lipase Vitamin B12 976.8 H TSH Urine WBC (Auto) Urine Chloride Urine Total Protein Crossmatch 10/22/16 10/22/16 10/22/16 10:25 14:50 18:16 WBC RBC Hgb Hct MCV RDW Plt Count Lymph % (Auto) Stark % (Auto) Stark # Seg Neutrophils % Seg Neuts % (Manual) Lymphocytes % (Manual) Monocytes % (Manual) Seg Neutrophils # Seg Neutrophils # Man Lymphocytes # (Manual) Monocytes # (Manual) Eosinophils # (Manual) Basophils # (Manual) PT INR APTT Heparin Anti-Xa Level POC ABG pH POC ABG pCO2 POC ABG pO2 Sodium Potassium Chloride Carbon Dioxide BUN Creatinine Glucose POC Glucose 193 H Calcium Phosphorus Magnesium AST C-Reactive Protein Total Protein Albumin Lipase Vitamin B12 TSH 0.143 L 0.162 L Urine WBC (Auto) Urine Chloride Urine Total Protein Crossmatch 10/22/16 10/22/16 10/22/16 20:00 20:00 20:00 WBC 24.1 H RBC 2.58 L Hgb 8.2 L Hct 26.4 L MCV 102 H RDW Plt Count Lymph % (Auto) Stark % (Auto) Stark # Seg Neutrophils % Seg Neuts % (Manual) 74.0 H Lymphocytes % (Manual) 7.0 L Monocytes % (Manual) Seg Neutrophils # Seg Neutrophils # Man 17.8 H Lymphocytes # (Manual) Monocytes # (Manual) Eosinophils # (Manual) Basophils # (Manual) PT INR APTT Heparin Anti-Xa Level 1.92 H POC ABG pH POC ABG pCO2 POC ABG pO2 Sodium Potassium Chloride Carbon Dioxide BUN Creatinine Glucose POC Glucose Calcium Phosphorus Magnesium AST C-Reactive Protein Total Protein Albumin Lipase Vitamin B12 TSH Urine WBC (Auto) Urine Chloride Urine Total Protein Crossmatch See Detail 10/23/16 10/23/16 10/23/16 00:21 06:09 12:07 WBC RBC Hgb Hct MCV RDW Plt Count Lymph % (Auto) Stark % (Auto) Stark # Seg Neutrophils % Seg Neuts % (Manual) Lymphocytes % (Manual) Monocytes % (Manual) Seg Neutrophils # Seg Neutrophils # Man Lymphocytes # (Manual) Monocytes # (Manual) Eosinophils # (Manual) Basophils # (Manual) PT INR APTT Heparin Anti-Xa Level POC ABG pH POC ABG pCO2 POC ABG pO2 Sodium Potassium Chloride Carbon Dioxide BUN Creatinine Glucose POC Glucose 283 H 241 H 340 H Calcium Phosphorus Magnesium AST C-Reactive Protein Total Protein Albumin Lipase Vitamin B12 TSH Urine WBC (Auto) Urine Chloride Urine Total Protein Crossmatch 10/23/16 10/23/16 10/23/16 14:01 16:00 17:59 WBC RBC Hgb Hct MCV RDW Plt Count Lymph % (Auto) Stark % (Auto) Stark # Seg Neutrophils % Seg Neuts % (Manual) Lymphocytes % (Manual) Monocytes % (Manual) Seg Neutrophils # Seg Neutrophils # Man Lymphocytes # (Manual) Monocytes # (Manual) Eosinophils # (Manual) Basophils # (Manual) PT INR APTT Heparin Anti-Xa Level 0.19 L POC ABG pH POC ABG pCO2 32.4 L POC ABG pO2 Sodium Potassium Chloride Carbon Dioxide BUN Creatinine Glucose POC Glucose 245 H Calcium Phosphorus Magnesium AST C-Reactive Protein Total Protein Albumin Lipase Vitamin B12 TSH Urine WBC (Auto) Urine Chloride Urine Total Protein Crossmatch 10/23/16 10/23/16 10/23/16 22:55 Unknown Unknown WBC 22.6 H RBC 3.26 L Hgb Hct MCV RDW 17.1 H Plt Count Lymph % (Auto) Stark % (Auto) Stark # Seg Neutrophils % Seg Neuts % (Manual) Lymphocytes % (Manual) 11.0 L Monocytes % (Manual) Seg Neutrophils # Seg Neutrophils # Man 14.0 H Lymphocytes # (Manual) Monocytes # (Manual) Eosinophils # (Manual) Basophils # (Manual) PT INR APTT Heparin Anti-Xa Level 0.17 L 0.15 L POC ABG pH POC ABG pCO2 POC ABG pO2 Sodium Potassium Chloride Carbon Dioxide BUN Creatinine Glucose POC Glucose Calcium Phosphorus Magnesium AST C-Reactive Protein Total Protein Albumin Lipase Vitamin B12 TSH Urine WBC (Auto) Urine Chloride Urine Total Protein Crossmatch 10/23/16 10/24/16 10/24/16 Unknown 00:05 05:30 WBC RBC Hgb Hct MCV RDW Plt Count Lymph % (Auto) Stark % (Auto) Stark # Seg Neutrophils % Seg Neuts % (Manual) Lymphocytes % (Manual) Monocytes % (Manual) Seg Neutrophils # Seg Neutrophils # Man Lymphocytes # (Manual) Monocytes # (Manual) Eosinophils # (Manual) Basophils # (Manual) PT INR APTT Heparin Anti-Xa Level 0.13 L POC ABG pH POC ABG pCO2 POC ABG pO2 Sodium Potassium Chloride 111.2 H Carbon Dioxide 20 L BUN 25 H Creatinine Glucose 227 H POC Glucose 118 H Calcium 7.1 L Phosphorus Magnesium AST C-Reactive Protein Total Protein Albumin Lipase Vitamin B12 TSH Urine WBC (Auto) Urine Chloride Urine Total Protein Crossmatch 10/24/16 10/24/16 10/24/16 11:00 11:00 12:06 WBC 17.6 H RBC 2.92 L Hgb 9.2 L Hct 28.3 L MCV RDW 16.9 H Plt Count Lymph % (Auto) Stark % (Auto) Stark # Seg Neutrophils % Seg Neuts % (Manual) Lymphocytes % (Manual) Monocytes % (Manual) Seg Neutrophils # Seg Neutrophils # Man Lymphocytes # (Manual) Monocytes # (Manual) Eosinophils # (Manual) Basophils # (Manual) PT INR APTT Heparin Anti-Xa Level 0.27 L POC ABG pH POC ABG pCO2 POC ABG pO2 Sodium Potassium Chloride Carbon Dioxide BUN Creatinine Glucose POC Glucose 166 H Calcium Phosphorus Magnesium AST C-Reactive Protein Total Protein Albumin Lipase Vitamin B12 TSH Urine WBC (Auto) Urine Chloride Urine Total Protein Crossmatch 10/24/16 10/25/16 10/25/16 12:27 00:49 03:30 WBC RBC Hgb 8.8 L Hct 28.1 L MCV RDW Plt Count Lymph % (Auto) Stark % (Auto) Stark # Seg Neutrophils % Seg Neuts % (Manual) Lymphocytes % (Manual) Monocytes % (Manual) Seg Neutrophils # Seg Neutrophils # Man Lymphocytes # (Manual) Monocytes # (Manual) Eosinophils # (Manual) Basophils # (Manual) PT INR APTT Heparin Anti-Xa Level POC ABG pH POC ABG pCO2 33.9 L POC ABG pO2 Sodium Potassium Chloride Carbon Dioxide BUN Creatinine Glucose POC Glucose 121 H Calcium Phosphorus Magnesium AST C-Reactive Protein Total Protein Albumin Lipase Vitamin B12 TSH Urine WBC (Auto) Urine Chloride Urine Total Protein Crossmatch Allied health notes reviewed: RT
--- NOTE | 2016-10-25 15:01 | Event Note ---
Date: 10/25/16 The patient is more alert than previously however she remains critically ill and remains on the ventilator. At this point it appears that her right foot is not salvageable. She is however warm to the cath and when she improves we may benefit from an arteriogram to improve flow in her SFA and popliteal arteries with hopes of salvaging a below-knee amputation.
--- NOTE | 2016-10-25 17:31 | Progress Note ---
Assessment and Plan Assessment and plan: 66-year-old woman who presented with lethargy and altered mental status she deteriorated and was intubated and in emergency room, she was managed for DKA and she also developed sepsis due to UTI and right lower extremity ischemia 1. Acute respiratory failure with hypercapnia Continue ventilator, failed weaning trial. will plan for Trach and Peg 2. Diabetes DKA has now resolved, continue SubQ insulin 3. Sepsis- Leukocytosis continues to improving Suspected due to UTI, urine has only grown Paula, sputum cultures grew group B strep, continue broad-spectrum antibiotics, infectious disease input appreciated 4. 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 Family has been updated. We'll continue to attempt to see if below the knee can be done as salvaged. too ill for any surgical intervention, continue heparin drip 5. Hypokalemia replete IV 6. Toxic metabolic encephalopathy- improved. 7. LUCY- present on admissions. likely vasomotor 8. Tachycardia- continue BB will add cardizem, if no improvement will add cardiology consultation Given her multiple medical illnesses, her prognosis is quite poor No family at bedside today. 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 Critical care time 31 minutes History Interval history: Patient seen and examined, she is more awake today but still unable to wean from vent. Tachycardia improved mildly. No adverse event reported to me by nursing staff. Hospitalist Physical - Physical exam Narrative exam: VITAL SIGNS: Reviewed. GENERAL: The patient appeared well nourished and normally developed. Vital signs as documented. HEAD: No signs of head trauma. EYES: Pupils are equal. Extraocular motions intact. EARS: Hearing grossly intact. MOUTH: ETT NECK: No adenopathy, no JVD. CHEST: Chest with diminshed CARDIAC: Regular rate and rhythm. S1 and S2, without murmurs, gallops, or rubs. VASCULAR: trace Edema. Peripheral pulses not palpable at the right lower ext ABDOMEN: Soft, without detectable tenderness. No sign of distention. No rebound or guarding, and no masses palpated. Bowel Sounds normal. MUSCULOSKELETAL: Good range of motion of all major joints. Except right lower extremity. Extremities cyanosis to right lower ext. NEUROLOGIC EXAM: follows command. PSYCHIATRIC: unable to assess. SKIN: cold at the right lower ext from the knee down once - Constitutional Vitals: Temp Pulse Resp BP Pulse Ox 102.1 F H 114 H 20 143/69 100 10/25/16 06:00 10/25/16 15:30 10/25/16 11:00 10/25/16 15:30 10/25/16 11:16 General appearance: Present: no acute distress Results - Labs CBC & Chem 7: 10/25/16 03:30 10/23/16 Unknown Labs: Laboratory Last Values WBC 17.6 K/mm3 (4.5-11.0) H 10/24/16 11:00 RBC 2.92 M/mm3 (3.65-5.03) L 10/24/16 11:00 Hgb 8.8 gm/dl (10.1-14.3) L 10/25/16 03:30 Hct 28.1 % (30.3-42.9) L 10/25/16 03:30 MCV 97 fl (79-97) 10/24/16 11:00 MCH 32 pg (28-32) 10/24/16 11:00 MCHC 33 % (30-34) 10/24/16 11:00 RDW 16.9 % (13.2-15.2) H 10/24/16 11:00 Plt Count 391 K/mm3 (140-440) 10/25/16 03:30 Lymph % (Auto) Brand Mgr 10/21/16 05:00 [place] % (Auto) Brand Mgr 10/21/16 05:00 Eos % (Auto) Brand Mgr 10/21/16 05:00 Baso % (Auto) Brand Mgr 10/21/16 05:00 Lymph # Brand Mgr 10/21/16 05:00 [place] # Brand Mgr 10/21/16 05:00 Eos # Brand Mgr 10/21/16 05:00 Baso # Brand Mgr 10/21/16 05:00 Add Manual Diff Complete 10/23/16 Unknown Total Counted 100 10/23/16 Unknown Seg Neutrophils % Brand Mgr 10/21/16 05:00 Seg Neuts % (Manual) 62.0 % (40.0-70.0) 10/23/16 Unknown Band Neutrophils % 25.0 % 10/23/16 Unknown Lymphocytes % (Manual) 11.0 % (13.4-35.0) L 10/23/16 Unknown Reactive Lymphs % (Man) 0 % 10/23/16 Unknown Monocytes % (Manual) 2.0 % (0.0-7.3) 10/23/16 Unknown Eosinophils % (Manual) 0 % (0.0-4.3) 10/23/16 Unknown Basophils % (Manual) 0 % (0.0-1.8) 10/23/16 Unknown Metamyelocytes % 0 % 10/23/16 Unknown Myelocytes % 0 % 10/23/16 Unknown Promyelocytes % 0 % 10/23/16 Unknown Blast Cells % 0 % 10/23/16 Unknown Nucleated RBC % Not Reportable 10/23/16 Unknown Seg Neutrophils # Brand Mgr 10/21/16 05:00 Seg Neutrophils # Man 14.0 K/mm3 (1.8-7.7) H 10/23/16 Unknown Band Neutrophils # 5.7 K/mm3 10/23/16 Unknown Lymphocytes # (Manual) 2.5 K/mm3 (1.2-5.4) 10/23/16 Unknown Abs React Lymphs (Man) 0.0 K/mm3 10/23/16 Unknown Monocytes # (Manual) 0.5 K/mm3 (0.0-0.8) 10/23/16 Unknown Eosinophils # (Manual) 0.0 K/mm3 (0.0-0.4) 10/23/16 Unknown Basophils # (Manual) 0.0 K/mm3 (0.0-0.1) 10/23/16 Unknown Metamyelocytes # 0.0 K/mm3 10/23/16 Unknown Myelocytes # 0.0 K/mm3 10/23/16 Unknown Promyelocytes # 0.0 K/mm3 10/23/16 Unknown Blast Cells # 0.0 K/mm3 10/23/16 Unknown WBC Morphology Not Reportable 10/23/16 Unknown Hypersegmented Neuts Not Reportable 10/23/16 Unknown Hyposegmented Neuts Not Reportable 10/23/16 Unknown Hypogranular Neuts Not Reportable 10/23/16 Unknown Hypersegmented Polys TNR 10/17/16 07:08 Smudge Cells Not Reportable 10/23/16 Unknown Toxic Granulation Not Reportable 10/23/16 Unknown Toxic Vacuolation Not Reportable 10/23/16 Unknown Dohle Bodies Not Reportable 10/23/16 Unknown Pelger-Huet Anomaly Not Reportable 10/23/16 Unknown [place] Rods Not Reportable 10/23/16 Unknown Platelet Estimate Appears normal 10/23/16 Unknown Clumped Platelets Not Reportable 10/23/16 Unknown Plt Clumps, EDTA Not Reportable 10/23/16 Unknown Large Platelets Rare 10/23/16 Unknown Giant Platelets Not Reportable 10/23/16 Unknown Platelet Satelliting Not Reportable 10/23/16 Unknown Plt Morphology Comment Not Reportable 10/23/16 Unknown RBC Morphology Not Reportable 10/23/16 Unknown Dimorphic RBCs Not Reportable 10/23/16 Unknown Polychromasia Few 10/23/16 Unknown Hypochromasia 1+ 10/23/16 Unknown Poikilocytosis Few 10/23/16 Unknown Basophilic Stippling TNR 10/17/16 07:08 Anisocytosis 1+ 10/23/16 Unknown Microcytosis Not Reportable 10/23/16 Unknown Macrocytosis Not Reportable 10/23/16 Unknown Spherocytes Not Reportable 10/23/16 Unknown Pappenheimer Bodies Not Reportable 10/23/16 Unknown Sickle Cells Not Reportable 10/23/16 Unknown Target Cells Not Reportable 10/23/16 Unknown Tear Drop Cells Not Reportable 10/23/16 Unknown Ovalocytes Not Reportable 10/23/16 Unknown Stomatocytes Rare 10/22/16 04:20 Helmet Cells Not Reportable 10/23/16 Unknown [place] Bodies Not Reportable 10/23/16 Unknown [place] Rings Not Reportable 10/23/16 Unknown Jeannette Cells Not Reportable 10/23/16 Unknown Bite Cells Not Reportable 10/23/16 Unknown Crenated Cell Not Reportable 10/23/16 Unknown Elliptocytes Not Reportable 10/23/16 Unknown Acanthocytes (Spur) Not Reportable 10/23/16 Unknown Rouleaux Not Reportable 10/23/16 Unknown Hemoglobin C Crystals Not Reportable 10/23/16 Unknown Schistocytes Not Reportable 10/23/16 Unknown Malaria parasites Not Reportable 10/23/16 Unknown David Bodies Not Reportable 10/23/16 Unknown Hem Pathologist Commnt No 10/23/16 Unknown PT 16.4 Sec. (12.2-14.9) H 10/17/16 16:07 INR 1.33 (0.87-1.13) H 10/17/16 16:07 APTT 38.8 Sec. (24.2-36.6) H 10/17/16 16:07 Heparin Anti-Xa Level 0.40 U.I./ml (0.3-0.7) 10/25/16 03:30 POC ABG pH 7.386 (7.35-7.45) 10/24/16 12:27 POC ABG pCO2 33.9 (35-45) L 10/24/16 12:27 POC ABG pO2 92 (80-105) 10/24/16 12:27 POC ABG HCO3 20.3 10/24/16 12:27 POC ABG Total CO2 21 10/24/16 12:27 POC ABG O2 Sat 97 10/24/16 12:27 POC ABG Base Excess -5 10/24/16 12:27 VBG pH 7.020 (7.320-7.420) L* 10/13/16 04:22 FiO2 25 % 10/24/16 12:27 Sodium 142 mmol/L (137-145) 10/23/16 Unknown Potassium 4.2 mmol/L (3.6-5.0) D 10/23/16 Unknown Chloride 111.2 mmol/L (98-107) H 10/23/16 Unknown Carbon Dioxide 20 mmol/L (22-30) L 10/23/16 Unknown Anion Gap 15 mmol/L 10/23/16 Unknown BUN 25 mg/dL (7-17) H 10/23/16 Unknown Creatinine 0.9 mg/dL (0.7-1.2) 10/23/16 Unknown Estimated GFR > 60 ml/min 10/23/16 Unknown BUN/Creatinine Ratio 27.77 % 10/23/16 Unknown Glucose 227 mg/dL (65-100) H 10/23/16 Unknown POC Glucose 151 (70-105) H 10/25/16 12:10 Osmolality 332 Mosm/kg 10/14/16 07:03 Lactic Acid 1.8 mmol/L (0.7-2.0) 10/14/16 07:03 Calcium 7.1 mg/dL (8.4-10.2) L 10/23/16 Unknown Phosphorus 2.7 mg/dL (2.5-4.5) D 10/21/16 Unknown Magnesium 1.9 mg/dL (1.7-2.3) 10/22/16 04:20 Total Bilirubin 0.5 mg/dL (0.1-1.2) 10/15/16 04:40 AST 79 units/L (5-40) H 10/15/16 04:40 ALT 27 units/L (7-56) 10/15/16 04:40 Alkaline Phosphatase 80 units/L (35-129) 10/15/16 04:40 Ammonia 35.0 umol/L (25-60) 10/13/16 05:40 Total Creatine Kinase 107 units/L (30-135) 10/13/16 04:22 CK-MB (CK-2) 3.1 ng/mL (0.0-4.0) 10/13/16 04:22 CK-MB (CK-2) Rel Index 2.8 (0-4) 10/13/16 04:22 Troponin T < 0.010 ng/mL (0.00-0.029) 10/14/16 18:55 C-Reactive Protein 10.50 mg/dL (0.00-1.30) H 10/13/16 16:14 Total Protein 5.5 g/dL (6.3-8.2) L 10/15/16 04:40 Albumin 3.0 g/dL (3.9-5) L 10/15/16 04:40 Albumin/Globulin Ratio 1.2 % 10/15/16 04:40 Lipase 143 units/L (13-60) H 10/16/16 04:14 Vitamin B12 976.8 pg/mL (211-911) H 10/22/16 10:25 TSH 0.162 mlU/mL (0.270-4.200) L 10/22/16 14:50 Free T4 0.77 ng/dL (0.76-1.46) 10/22/16 14:50 Urine Color Yellow (Yellow) 10/15/16 11:05 Urine Turbidity Cloudy (Clear) 10/15/16 11:05 Urine pH 5.0 (5.0-7.0) 10/15/16 11:05 Ur Specific [place] 1.009 (1.003-1.030) 10/15/16 11:05 Urine Protein 30 mg/dl mg/dL (Negative) 10/15/16 11:05 Urine Glucose (UA) 150 mg/dL (Negative) 10/15/16 11:05 Urine Ketones Neg mg/dL (Negative) 10/15/16 11:05 Urine Blood Lg (Negative) 10/15/16 11:05 Urine Nitrite Neg (Negative) 10/15/16 11:05 Urine Bilirubin Neg (Negative) 10/15/16 11:05 Urine Urobilinogen < 2.0 mg/dL (<2.0) 10/15/16 11:05 Ur Leukocyte Esterase Neg (Negative) 10/15/16 11:05 Urine WBC (Auto) 7.0 /HPF (0.0-6.0) H 10/15/16 11:05 Urine RBC (Auto) 7.0 /HPF (0.0-6.0) 10/15/16 11:05 U Epithel Cells (Auto) 1.0 /HPF (0-13.0) 10/15/16 11:05 Urine Mucus Few /HPF 10/15/16 11:05 Urine Yeast (Budding) 2+ /HPF 10/15/16 11:05 Urine Osmolality 487 Mosm/kg 10/13/16 Unknown Urine Creatinine < 4.2 mg/dL (0.1-20.0) 10/13/16 Unknown Protein/Creatinin Ratio 0.00 10/13/16 Unknown Urine Sodium 10 mEq/L 10/13/16 Unknown Urine Potassium 1.00 mEq/L 10/13/16 Unknown Urine Chloride 10.0 mEq/L (110-250) L 10/13/16 Unknown Urine Total Protein < 4 mg/dL (5-11.8) L 10/13/16 Unknown Vancomycin Trough 17.7 ug/mL (5.0-20.0) 10/22/16 10:25 Ketones 107.3 mg/dL (0.2-2.8) H 10/13/16 04:22 Blood Type A POSITIVE 10/22/16 20:00 Antibody Screen Negative 10/22/16 20:00 Crossmatch See Detail 10/22/16 20:00
--- NOTE | 2016-10-25 18:26 | Progress Note ---
Subjective Date of service: 10/25/16 Principal diagnosis: respiratory failure on mechanical ventilatory support, DKA Interval history: Continues to improve. Vital signs - afebrile CHEST - [employer] [facility] - S1S2 ABD - BS_ LABS wbc trending down. ASSESSMENT 1. Sepsis 2. dka 3. resp failure 4. htn 5. clostridium difficile colitis RECOMMENDATION 1. cbc/bmp in am 2. continue current care. Will consider switching to oral abx in am if no fever and wbc continues to trend down. Objective - Constitutional Vitals: Vital Signs Temp Pulse Resp BP Pulse Ox 99.9 F H 103 H 16 143/69 100 10/25/16 14:00 10/25/16 17:25 10/25/16 17:00 10/25/16 17:25 10/25/16 17:25 Temperature -Last 24 Hours Temperature 99.9 F Temperature 102.1 F Temperature 98.7 F Temperature 100.1 F - Labs CBC & Chem 7: 10/25/16 03:30 10/23/16 Unknown Labs: Abnormal lab results 10/25/16 10/25/16 10/25/16 Range/Units 00:49 03:30 09:49 Hgb 8.8 L (10.1-14.3) gm/dl Hct 28.1 L (30.3-42.9) % POC Glucose 121 H 158 H (70-105) 10/25/16 Range/Units 12:10 Hgb (10.1-14.3) gm/dl Hct (30.3-42.9) % POC Glucose 151 H (70-105)
[2016-10-25 19:50] LABS: Hematocrit 28.9 % (30.3-42.9); Hemoglobin 9.3 gm/dl (10.1-14.3); Mean Corpuscular HGB Conc 32 % (30-34); Mean Corpuscular Hemoglobin 31 pg (28-32); Mean Corpuscular Volume 96 fl (79-97); Platelet Count 428 K/mm3 (140-440); Red Blood Count 3.02 M/mm3 (3.65-5.03); Red Cell Distribution Width 16.3 % (13.2-15.2)
[2016-10-25 19:52] LABS: White Blood Count 21.1 K/mm3 (4.5-11.0)
[2016-10-25 20:33] LABS: Basophils % (Manual) 0 % (0.0-1.8); Blastocytes % (Manual) 0 %; Eosinophils % (Manual) 0 % (0.0-4.3)
[2016-10-25 20:37] LABS: Anisocytosis 1+; Diff Status Complete; Hypochromasia 1+; Large Platelets 1+; Platelet Estimate Consistent w Auto; Poikilocytosis 1+
[2016-10-26] MEDS: D50W (25GM) IV PRN (00:34)
[2016-10-26 05:44] LABS: Anion Gap 19 mmol/L; Blood Urea Nitrogen 24 mg/dL (7-17); Calcium 7.7 mg/dL (8.4-10.2); Carbon Dioxide 20 mmol/L (22-30); Chloride 103.2 mmol/L (98-107); Glucose 104 mg/dL (65-100); Potassium 3.2 mmol/L (3.6-5.0); Sodium 139 mmol/L (137-145)
[2016-10-26 05:57] LABS: Hematocrit 27.8 % (30.3-42.9); Hemoglobin 8.7 gm/dl (10.1-14.3); Mean Corpuscular HGB Conc 32 % (30-34); Mean Corpuscular Hemoglobin 30 pg (28-32); Mean Corpuscular Volume 96 fl (79-97); Platelet Count 430 K/mm3 (140-440); Red Blood Count 2.89 M/mm3 (3.65-5.03); Red Cell Distribution Width 16.4 % (13.2-15.2)
[2016-10-26 06:09] LABS: White Blood Count 22.2 K/mm3 (4.5-11.0)
[2016-10-26] MEDS: AZACTAM/NS 1 GM/50 ML 1 GM/50 ML VIAL IV SCH ×3 (06:31→22:28)
[2016-10-26] MEDS: FLAGYL PO SCH ×3 (06:32→22:34)
[2016-10-26] MEDS: fentaNYL DRIP Premix 2,000 MCG/100 ML BAG IV SCH ×3 (06:32→23:15)
[2016-10-26] MEDS: LOPRESSOR FEEDTUBE SCH ×3 (06:32→22:34)
[2016-10-26] MEDS ORDERED: POTASSIUM CHLORIDE FEEDTUBE ONE (06:41)
[2016-10-26] MEDS ORDERED: POTASSIUM CHLORIDE FEEDTUBE SCH (09:00)
[2016-10-26] MEDS: PEPCID PO SCH ×2 (09:24→22:35)
[2016-10-26] MEDS: DIFLUCAN 200 MG/100 ML BAG IV SCH (09:25)
[2016-10-26] MEDS: VANCOMYCIN VIAL 1,250 MG in NACL 0.9% 250ML 250 ML IV SCH (09:25)
[2016-10-26] MEDS ORDERED: LEVEMIR SUB-Q SCH (10:00)
[2016-10-26] MEDS ORDERED: MAGNESIUM SULFATE 2GM/50ML 2 GM/50 ML BAG IV ONE ×2 (11:00→18:00)
--- NOTE | 2016-10-26 11:03 | Progress Note ---
Assessment and Plan - Patient Problems (1) Acute respiratory failure with hypercapnia Current Visit: Yes Status: Acute Plan to address problem: - continue aspiration precautions / VAP bundles - continue bronchodilators and pulmonary toilet - continue to wean oxygen to keep sats > 94% - resume graded weaning at Psupp of 20 cmH2O - ETT day # 14-15 and seen by surgery re: tracheostomy - continue daily PSV trials in meantime as tolerated (2) Altered mental status Current Visit: Yes Status: Acute Qualifiers: Altered mental status type: A Coma depth: C Coma timing: C Plan to address problem: - no active seizures - following clinically - seen by neurology and will follow their recommendations - no seizures on EEG (3) LUCY (acute kidney injury) Current Visit: Yes Status: Acute Plan to address problem: - continue free water flushes - follow I's & O's - improving numbers (4) DKA (diabetic ketoacidoses) Current Visit: Yes Status: Acute Qualifiers: Diabetes mellitus type: D Diabetes mellitus complication detail: D Plan to address problem: - off IV insulin - continue SSI - continue enteral nutrition as tolerated (5) Sepsis Current Visit: No Status: Acute Qualifiers: Sepsis type: S Plan to address problem: - continue anti-infectives per ID recs - follow clinically - trend lactate and CRP prn - continue other care as documented - suspect LL ext / left foot ischemia contributing to leucocytosis (6) Tachycardia Current Visit: Yes Status: Acute Plan to address problem: - tolerating metoprolol - treat pain prn (7) Discharge planning issues Current Visit: No Status: Acute Plan to address problem: - Awaiting tracheostomy - awaiting tentative amputation ...remains critically ill on life sustaining treatments including MVS and at high risk for further deterioration including ...30' CCT Subjective Date of service: 10/26/16 Principal diagnosis: respiratory failure on mechanical ventilatory support, DKA Interval history: Seen and examined at bedside; 24 hour events reviewed; nursing and respiratory care staff consulted; no adverse overnight events reported to me; remains on MVS ; arousable but not really following prompts appropriately and not tolerating PSV weaning well. Objective Vital Signs - 12hr 10/25/16 10/25/16 10/26/16 23:00 23:54 00:00 Temperature 100.4 F H Pulse Rate 91 H 106 H Pulse Rate [ 89 Apical] Pulse Rate [ 89 From Monitor] Respiratory 18 18 Rate Blood Pressure 123/55 110/52 O2 Sat by Pulse 96 Oximetry 10/26/16 10/26/16 10/26/16 01:00 02:00 03:00 Temperature Pulse Rate 105 H 113 H 97 H Pulse Rate [ Apical] Pulse Rate [ From Monitor] Respiratory 20 25 H 26 H Rate Blood Pressure 140/74 140/74 141/62 O2 Sat by Pulse 97 Oximetry 10/26/16 10/26/16 10/26/16 04:00 05:00 06:00 Temperature 98.2 F Pulse Rate 106 H 93 H 85 Pulse Rate [ Apical] Pulse Rate [ 109 H From Monitor] Respiratory 27 H 25 H 29 H Rate Blood Pressure 144/70 145/72 145/72 O2 Sat by Pulse 98 98 100 Oximetry 10/26/16 10/26/16 10/26/16 06:32 07:00 07:27 Temperature 97.5 F L Pulse Rate 111 H 99 H Pulse Rate [ Apical] Pulse Rate [ From Monitor] Respiratory 18 Rate Blood Pressure 132/82 153/64 O2 Sat by Pulse 98 Oximetry 10/26/16 10/26/16 10/26/16 07:32 08:00 08:26 Temperature Pulse Rate 86 85 Pulse Rate [ 100 H Apical] Pulse Rate [ 100 H From Monitor] Respiratory 22 19 Rate Blood Pressure 157/78 157/78 O2 Sat by Pulse 98 99 100 Oximetry 10/26/16 10/26/16 09:00 10:00 Temperature Pulse Rate 105 H 120 H Pulse Rate [ Apical] Pulse Rate [ From Monitor] Respiratory 19 27 H Rate Blood Pressure 157/78 170/108 O2 Sat by Pulse 100 100 Oximetry Constitutional: no acute distress, appears uncomfortable, other (? delirium / dementia element) Eyes: non-icteric ENT: oropharynx moist Neck: supple, no lymphadenopathy Effort: mildly labored Ascultation: Bilateral: diminished breath sounds, rales (bases) Cardiovascular: regular rate and rhythm, other (tachycardia) Gastrointestinal: normoactive bowel sounds, soft, non-tender, non-distended Integumentary: normal Extremities: no cyanosis, no edema, no ischemia or petechiae, other (cold right foot with digital ischemia) Neurologic: non-focal exam (grossly), unable to assess Psychiatric: other (sedated) CBC and BMP: 10/27/16 05:15 10/27/16 05:15 ABG, PT/INR, D-dimer: ABG POC ABG pH 7.386 (7.35-7.45) 10/24/16 12:27 POC ABG pCO2 33.9 (35-45) L 10/24/16 12:27 POC ABG pO2 92 (80-105) 10/24/16 12:27 POC ABG HCO3 20.3 10/24/16 12:27 POC ABG Total CO2 21 10/24/16 12:27 POC ABG O2 Sat 97 10/24/16 12:27 PT/INR, D-dimer PT 16.4 Sec. (12.2-14.9) H 10/17/16 16:07 INR 1.33 (0.87-1.13) H 10/17/16 16:07 Abnormal lab findings: Abnormal Labs 10/13/16 10/13/16 10/13/16 06:38 06:38 07:23 WBC RBC Hgb Hct MCV RDW Plt Count Lymph % (Auto) Gray % (Auto) Gray # Seg Neutrophils % Seg Neuts % (Manual) Lymphocytes % (Manual) Monocytes % (Manual) Seg Neutrophils # Seg Neutrophils # Man Lymphocytes # (Manual) Monocytes # (Manual) Eosinophils # (Manual) Basophils # (Manual) PT INR APTT Heparin Anti-Xa Level POC ABG pH POC ABG pCO2 POC ABG pO2 Sodium Potassium 6.2 H* Chloride Carbon Dioxide 8 L* BUN 85 H Creatinine 2.8 H Glucose 602 H* POC Glucose 495 H Calcium 7.9 L Phosphorus 6.9 H D Magnesium 3.0 H AST C-Reactive Protein Total Protein Albumin Lipase Vitamin B12 TSH Urine WBC (Auto) Urine Chloride Urine Total Protein Crossmatch 10/13/16 10/13/16 10/13/16 08:49 08:55 10:12 WBC RBC Hgb Hct MCV RDW Plt Count Lymph % (Auto) Gray % (Auto) Gray # Seg Neutrophils % Seg Neuts % (Manual) Lymphocytes % (Manual) Monocytes % (Manual) Seg Neutrophils # Seg Neutrophils # Man Lymphocytes # (Manual) Monocytes # (Manual) Eosinophils # (Manual) Basophils # (Manual) PT INR APTT Heparin Anti-Xa Level POC ABG pH POC ABG pCO2 POC ABG pO2 Sodium Potassium 5.6 H Chloride Carbon Dioxide 11 L BUN 77 H Creatinine 2.7 H Glucose 457 H POC Glucose > 500 H 424 H Calcium 8.0 L Phosphorus Magnesium AST C-Reactive Protein Total Protein Albumin Lipase Vitamin B12 TSH Urine WBC (Auto) Urine Chloride Urine Total Protein Crossmatch 10/13/16 10/13/16 10/13/16 10:44 11:22 12:20 WBC RBC Hgb Hct MCV RDW Plt Count Lymph % (Auto) Gray % (Auto) Gray # Seg Neutrophils % Seg Neuts % (Manual) Lymphocytes % (Manual) Monocytes % (Manual) Seg Neutrophils # Seg Neutrophils # Man Lymphocytes # (Manual) Monocytes # (Manual) Eosinophils # (Manual) Basophils # (Manual) PT INR APTT Heparin Anti-Xa Level POC ABG pH POC ABG pCO2 POC ABG pO2 Sodium Potassium 5.4 H Chloride Carbon Dioxide 14 L BUN 72 H Creatinine 2.6 H Glucose 383 H POC Glucose 391 H 313 H Calcium 8.2 L Phosphorus Magnesium AST C-Reactive Protein Total Protein Albumin Lipase Vitamin B12 TSH Urine WBC (Auto) Urine Chloride Urine Total Protein Crossmatch 10/13/16 10/13/16 10/13/16 13:32 14:44 15:57 WBC RBC Hgb Hct MCV RDW Plt Count Lymph % (Auto) Gray % (Auto) Gray # Seg Neutrophils % Seg Neuts % (Manual) Lymphocytes % (Manual) Monocytes % (Manual) Seg Neutrophils # Seg Neutrophils # Man Lymphocytes # (Manual) Monocytes # (Manual) Eosinophils # (Manual) Basophils # (Manual) PT INR APTT Heparin Anti-Xa Level POC ABG pH POC ABG pCO2 POC ABG pO2 Sodium Potassium Chloride Carbon Dioxide BUN Creatinine Glucose POC Glucose 296 H 210 H 190 H Calcium Phosphorus Magnesium AST C-Reactive Protein Total Protein Albumin Lipase Vitamin B12 TSH Urine WBC (Auto) Urine Chloride Urine Total Protein Crossmatch 10/13/16 10/13/16 10/13/16 16:14 16:14 17:17 WBC RBC Hgb Hct MCV RDW Plt Count Lymph % (Auto) Gray % (Auto) Gray # Seg Neutrophils % Seg Neuts % (Manual) Lymphocytes % (Manual) Monocytes % (Manual) Seg Neutrophils # Seg Neutrophils # Man Lymphocytes # (Manual) Monocytes # (Manual) Eosinophils # (Manual) Basophils # (Manual) PT INR APTT Heparin Anti-Xa Level POC ABG pH POC ABG pCO2 POC ABG pO2 Sodium Potassium Chloride Carbon Dioxide 17 L BUN 58 H Creatinine 1.8 H Glucose 172 H POC Glucose 193 H Calcium 7.7 L Phosphorus Magnesium AST C-Reactive Protein 10.50 H Total Protein Albumin Lipase Vitamin B12 TSH Urine WBC (Auto) Urine Chloride Urine Total Protein Crossmatch 10/13/16 10/13/16 10/13/16 17:55 18:32 19:41 WBC RBC Hgb Hct MCV RDW Plt Count Lymph % (Auto) Gray % (Auto) Gray # Seg Neutrophils % Seg Neuts % (Manual) Lymphocytes % (Manual) Monocytes % (Manual) Seg Neutrophils # Seg Neutrophils # Man Lymphocytes # (Manual) Monocytes # (Manual) Eosinophils # (Manual) Basophils # (Manual) PT INR APTT Heparin Anti-Xa Level POC ABG pH POC ABG pCO2 30.6 L POC ABG pO2 218 H Sodium Potassium Chloride Carbon Dioxide BUN Creatinine Glucose POC Glucose 192 H 177 H Calcium Phosphorus Magnesium AST C-Reactive Protein Total Protein Albumin Lipase Vitamin B12 TSH Urine WBC (Auto) Urine Chloride Urine Total Protein Crossmatch 10/13/16 10/13/16 10/13/16 20:54 22:07 23:13 WBC RBC Hgb Hct MCV RDW Plt Count Lymph % (Auto) Gray % (Auto) Gray # Seg Neutrophils % Seg Neuts % (Manual) Lymphocytes % (Manual) Monocytes % (Manual) Seg Neutrophils # Seg Neutrophils # Man Lymphocytes # (Manual) Monocytes # (Manual) Eosinophils # (Manual) Basophils # (Manual) PT INR APTT Heparin Anti-Xa Level POC ABG pH POC ABG pCO2 POC ABG pO2 Sodium Potassium Chloride Carbon Dioxide BUN Creatinine Glucose POC Glucose 178 H 160 H 168 H Calcium Phosphorus Magnesium AST C-Reactive Protein Total Protein Albumin Lipase Vitamin B12 TSH Urine WBC (Auto) Urine Chloride Urine Total Protein Crossmatch 10/13/16 10/13/16 10/14/16 23:25 Unknown 00:21 WBC RBC Hgb Hct MCV RDW Plt Count Lymph % (Auto) Gray % (Auto) Gray # Seg Neutrophils % Seg Neuts % (Manual) Lymphocytes % (Manual) Monocytes % (Manual) Seg Neutrophils # Seg Neutrophils # Man Lymphocytes # (Manual) Monocytes # (Manual) Eosinophils # (Manual) Basophils # (Manual) PT INR APTT Heparin Anti-Xa Level POC ABG pH POC ABG pCO2 POC ABG pO2 Sodium 148 H Potassium Chloride 114.6 H Carbon Dioxide 17 L BUN 56 H Creatinine 1.6 H Glucose 151 H POC Glucose 171 H Calcium 7.8 L Phosphorus Magnesium AST C-Reactive Protein Total Protein Albumin Lipase Vitamin B12 TSH Urine WBC (Auto) Urine Chloride 10.0 L Urine Total Protein < 4 L Crossmatch 10/14/16 10/14/16 10/14/16 01:22 02:29 03:30 WBC RBC Hgb Hct MCV RDW Plt Count Lymph % (Auto) Gray % (Auto) Gray # Seg Neutrophils % Seg Neuts % (Manual) Lymphocytes % (Manual) Monocytes % (Manual) Seg Neutrophils # Seg Neutrophils # Man Lymphocytes # (Manual) Monocytes # (Manual) Eosinophils # (Manual) Basophils # (Manual) PT INR APTT Heparin Anti-Xa Level POC ABG pH POC ABG pCO2 POC ABG pO2 Sodium Potassium Chloride Carbon Dioxide BUN Creatinine Glucose POC Glucose 144 H 136 H 143 H Calcium Phosphorus Magnesium AST C-Reactive Protein Total Protein Albumin Lipase Vitamin B12 TSH Urine WBC (Auto) Urine Chloride Urine Total Protein Crossmatch 10/14/16 10/14/16 10/14/16 04:28 05:16 05:44 WBC RBC Hgb Hct MCV RDW Plt Count Lymph % (Auto) Gray % (Auto) Gray # Seg Neutrophils % Seg Neuts % (Manual) Lymphocytes % (Manual) Monocytes % (Manual) Seg Neutrophils # Seg Neutrophils # Man Lymphocytes # (Manual) Monocytes # (Manual) Eosinophils # (Manual) Basophils # (Manual) PT INR APTT Heparin Anti-Xa Level POC ABG pH POC ABG pCO2 28.2 L POC ABG pO2 125 H Sodium Potassium Chloride Carbon Dioxide BUN Creatinine Glucose POC Glucose 133 H 160 H Calcium Phosphorus Magnesium AST C-Reactive Protein Total Protein Albumin Lipase Vitamin B12 TSH Urine WBC (Auto) Urine Chloride Urine Total Protein Crossmatch 10/14/16 10/14/16 10/14/16 06:12 06:45 07:03 WBC RBC Hgb Hct MCV RDW Plt Count Lymph % (Auto) Gray % (Auto) Gray # Seg Neutrophils % Seg Neuts % (Manual) Lymphocytes % (Manual) Monocytes % (Manual) Seg Neutrophils # Seg Neutrophils # Man Lymphocytes # (Manual) Monocytes # (Manual) Eosinophils # (Manual) Basophils # (Manual) PT INR APTT Heparin Anti-Xa Level POC ABG pH POC ABG pCO2 POC ABG pO2 Sodium 149 H Potassium Chloride 115.4 H Carbon Dioxide 17 L BUN 45 H Creatinine 1.5 H Glucose 139 H POC Glucose 149 H Calcium 7.4 L Phosphorus 1.0 L D Magnesium AST C-Reactive Protein Total Protein Albumin Lipase Vitamin B12 TSH Urine WBC (Auto) Urine Chloride Urine Total Protein Crossmatch 10/14/16 10/14/16 10/14/16 07:03 08:02 09:16 WBC RBC Hgb Hct MCV RDW Plt Count Lymph % (Auto) Gray % (Auto) Gray # Seg Neutrophils % Seg Neuts % (Manual) Lymphocytes % (Manual) Monocytes % (Manual) Seg Neutrophils # Seg Neutrophils # Man Lymphocytes # (Manual) Monocytes # (Manual) Eosinophils # (Manual) Basophils # (Manual) PT INR APTT Heparin Anti-Xa Level POC ABG pH POC ABG pCO2 POC ABG pO2 Sodium Potassium Chloride Carbon Dioxide BUN Creatinine Glucose POC Glucose 156 H 158 H Calcium Phosphorus Magnesium AST C-Reactive Protein Total Protein Albumin Lipase 738 H Vitamin B12 TSH Urine WBC (Auto) Urine Chloride Urine Total Protein Crossmatch 10/14/16 10/14/16 10/14/16 10:26 11:03 11:57 WBC RBC Hgb Hct MCV RDW Plt Count Lymph % (Auto) Gray % (Auto) Gray # Seg Neutrophils % Seg Neuts % (Manual) Lymphocytes % (Manual) Monocytes % (Manual) Seg Neutrophils # Seg Neutrophils # Man Lymphocytes # (Manual) Monocytes # (Manual) Eosinophils # (Manual) Basophils # (Manual) PT INR APTT Heparin Anti-Xa Level POC ABG pH 7.198 L POC ABG pCO2 47.5 H POC ABG pO2 Sodium Potassium Chloride Carbon Dioxide BUN Creatinine Glucose POC Glucose 174 H 189 H Calcium Phosphorus Magnesium AST C-Reactive Protein Total Protein Albumin Lipase Vitamin B12 TSH Urine WBC (Auto) Urine Chloride Urine Total Protein Crossmatch 10/14/16 10/14/16 10/14/16 12:02 12:02 13:11 WBC 13.4 H RBC 3.60 L Hgb Hct MCV 98 H D RDW 13.1 L Plt Count Lymph % (Auto) Gray % (Auto) Gray # Seg Neutrophils % Seg Neuts % (Manual) Lymphocytes % (Manual) Monocytes % (Manual) Seg Neutrophils # Seg Neutrophils # Man Lymphocytes # (Manual) Monocytes # (Manual) Eosinophils # (Manual) Basophils # (Manual) PT INR APTT Heparin Anti-Xa Level POC ABG pH POC ABG pCO2 POC ABG pO2 Sodium Potassium Chloride 110.7 H Carbon Dioxide 19 L BUN 38 H Creatinine 1.4 H Glucose 182 H POC Glucose 173 H Calcium 7.5 L Phosphorus Magnesium AST C-Reactive Protein Total Protein Albumin Lipase Vitamin B12 TSH Urine WBC (Auto) Urine Chloride Urine Total Protein Crossmatch 10/14/16 10/14/16 10/14/16 14:24 15:31 16:36 WBC RBC Hgb Hct MCV RDW Plt Count Lymph % (Auto) Gray % (Auto) Gray # Seg Neutrophils % Seg Neuts % (Manual) Lymphocytes % (Manual) Monocytes % (Manual) Seg Neutrophils # Seg Neutrophils # Man Lymphocytes # (Manual) Monocytes # (Manual) Eosinophils # (Manual) Basophils # (Manual) PT INR APTT Heparin Anti-Xa Level POC ABG pH POC ABG pCO2 POC ABG pO2 Sodium Potassium Chloride Carbon Dioxide BUN Creatinine Glucose POC Glucose 123 H 124 H 156 H Calcium Phosphorus Magnesium AST C-Reactive Protein Total Protein Albumin Lipase Vitamin B12 TSH Urine WBC (Auto) Urine Chloride Urine Total Protein Crossmatch 10/14/16 10/14/16 10/14/16 17:43 19:00 20:08 WBC RBC Hgb Hct MCV RDW Plt Count Lymph % (Auto) Gray % (Auto) Gray # Seg Neutrophils % Seg Neuts % (Manual) Lymphocytes % (Manual) Monocytes % (Manual) Seg Neutrophils # Seg Neutrophils # Man Lymphocytes # (Manual) Monocytes # (Manual) Eosinophils # (Manual) Basophils # (Manual) PT INR APTT Heparin Anti-Xa Level POC ABG pH POC ABG pCO2 POC ABG pO2 Sodium Potassium Chloride Carbon Dioxide BUN Creatinine Glucose POC Glucose 154 H 123 H 138 H Calcium Phosphorus Magnesium AST C-Reactive Protein Total Protein Albumin Lipase Vitamin B12 TSH Urine WBC (Auto) Urine Chloride Urine Total Protein Crossmatch 10/14/16 10/14/16 10/14/16 21:17 22:25 23:37 WBC RBC Hgb Hct MCV RDW Plt Count Lymph % (Auto) Gray % (Auto) Gray # Seg Neutrophils % Seg Neuts % (Manual) Lymphocytes % (Manual) Monocytes % (Manual) Seg Neutrophils # Seg Neutrophils # Man Lymphocytes # (Manual) Monocytes # (Manual) Eosinophils # (Manual) Basophils # (Manual) PT INR APTT Heparin Anti-Xa Level POC ABG pH POC ABG pCO2 POC ABG pO2 Sodium Potassium Chloride Carbon Dioxide BUN Creatinine Glucose POC Glucose 148 H 132 H 137 H Calcium Phosphorus Magnesium AST C-Reactive Protein Total Protein Albumin Lipase Vitamin B12 TSH Urine WBC (Auto) Urine Chloride Urine Total Protein Crossmatch 10/15/16 10/15/16 10/15/16 00:49 01:53 03:06 WBC RBC Hgb Hct MCV RDW Plt Count Lymph % (Auto) Gray % (Auto) Gray # Seg Neutrophils % Seg Neuts % (Manual) Lymphocytes % (Manual) Monocytes % (Manual) Seg Neutrophils # Seg Neutrophils # Man Lymphocytes # (Manual) Monocytes # (Manual) Eosinophils # (Manual) Basophils # (Manual) PT INR APTT Heparin Anti-Xa Level POC ABG pH POC ABG pCO2 POC ABG pO2 Sodium Potassium Chloride Carbon Dioxide BUN Creatinine Glucose POC Glucose 132 H 134 H 134 H Calcium Phosphorus Magnesium AST C-Reactive Protein Total Protein Albumin Lipase Vitamin B12 TSH Urine WBC (Auto) Urine Chloride Urine Total Protein Crossmatch 10/15/16 10/15/16 10/15/16 04:40 04:46 06:21 WBC RBC Hgb Hct MCV RDW Plt Count Lymph % (Auto) Gray % (Auto) Gray # Seg Neutrophils % Seg Neuts % (Manual) Lymphocytes % (Manual) Monocytes % (Manual) Seg Neutrophils # Seg Neutrophils # Man Lymphocytes # (Manual) Monocytes # (Manual) Eosinophils # (Manual) Basophils # (Manual) PT INR APTT Heparin Anti-Xa Level POC ABG pH POC ABG pCO2 30.7 L POC ABG pO2 108 H Sodium Potassium Chloride 109.0 H Carbon Dioxide 17 L BUN 27 H Creatinine Glucose 124 H POC Glucose 160 H Calcium 7.5 L Phosphorus Magnesium AST 79 H C-Reactive Protein Total Protein 5.5 L Albumin 3.0 L Lipase Vitamin B12 TSH Urine WBC (Auto) Urine Chloride Urine Total Protein Crossmatch 10/15/16 10/15/16 10/15/16 07:12 08:01 09:03 WBC RBC Hgb Hct MCV RDW Plt Count Lymph % (Auto) Gray % (Auto) Gray # Seg Neutrophils % Seg Neuts % (Manual) Lymphocytes % (Manual) Monocytes % (Manual) Seg Neutrophils # Seg Neutrophils # Man Lymphocytes # (Manual) Monocytes # (Manual) Eosinophils # (Manual) Basophils # (Manual) PT INR APTT Heparin Anti-Xa Level POC ABG pH POC ABG pCO2 POC ABG pO2 Sodium Potassium Chloride Carbon Dioxide BUN Creatinine Glucose POC Glucose 179 H 187 H 165 H Calcium Phosphorus Magnesium AST C-Reactive Protein Total Protein Albumin Lipase Vitamin B12 TSH Urine WBC (Auto) Urine Chloride Urine Total Protein Crossmatch 10/15/16 10/15/16 10/15/16 10:06 10:06 10:07 WBC 12.1 H RBC 3.01 L Hgb 9.7 L Hct 29.6 L MCV 98 H RDW Plt Count 129 L Lymph % (Auto) Gray % (Auto) Gray # Seg Neutrophils % Seg Neuts % (Manual) Lymphocytes % (Manual) Monocytes % (Manual) Seg Neutrophils # Seg Neutrophils # Man Lymphocytes # (Manual) Monocytes # (Manual) Eosinophils # (Manual) Basophils # (Manual) PT INR APTT Heparin Anti-Xa Level POC ABG pH POC ABG pCO2 POC ABG pO2 Sodium Potassium 3.2 L D Chloride 109.6 H Carbon Dioxide 18 L BUN 22 H Creatinine Glucose 127 H POC Glucose 147 H Calcium 7.0 L Phosphorus Magnesium AST C-Reactive Protein Total Protein Albumin Lipase Vitamin B12 TSH Urine WBC (Auto) Urine Chloride Urine Total Protein Crossmatch 10/15/16 10/15/16 10/15/16 11:05 11:06 11:57 WBC RBC Hgb Hct MCV RDW Plt Count Lymph % (Auto) Gray % (Auto) Gray # Seg Neutrophils % Seg Neuts % (Manual) Lymphocytes % (Manual) Monocytes % (Manual) Seg Neutrophils # Seg Neutrophils # Man Lymphocytes # (Manual) Monocytes # (Manual) Eosinophils # (Manual) Basophils # (Manual) PT INR APTT Heparin Anti-Xa Level POC ABG pH 7.305 L POC ABG pCO2 POC ABG pO2 Sodium Potassium Chloride Carbon Dioxide BUN Creatinine Glucose POC Glucose 145 H Calcium Phosphorus Magnesium AST C-Reactive Protein Total Protein Albumin Lipase Vitamin B12 TSH Urine WBC (Auto) 7.0 H Urine Chloride Urine Total Protein Crossmatch 10/15/16 10/15/16 10/15/16 12:04 13:59 15:24 WBC RBC Hgb Hct MCV RDW Plt Count Lymph % (Auto) Gray % (Auto) Gray # Seg Neutrophils % Seg Neuts % (Manual) Lymphocytes % (Manual) Monocytes % (Manual) Seg Neutrophils # Seg Neutrophils # Man Lymphocytes # (Manual) Monocytes # (Manual) Eosinophils # (Manual) Basophils # (Manual) PT INR APTT Heparin Anti-Xa Level POC ABG pH POC ABG pCO2 POC ABG pO2 Sodium Potassium Chloride Carbon Dioxide BUN Creatinine Glucose POC Glucose 123 H 147 H 153 H Calcium Phosphorus Magnesium AST C-Reactive Protein Total Protein Albumin Lipase Vitamin B12 TSH Urine WBC (Auto) Urine Chloride Urine Total Protein Crossmatch 10/15/16 10/15/16 10/15/16 16:30 17:34 18:30 WBC RBC Hgb Hct MCV RDW Plt Count Lymph % (Auto) Gray % (Auto) Gray # Seg Neutrophils % Seg Neuts % (Manual) Lymphocytes % (Manual) Monocytes % (Manual) Seg Neutrophils # Seg Neutrophils # Man Lymphocytes # (Manual) Monocytes # (Manual) Eosinophils # (Manual) Basophils # (Manual) PT INR APTT Heparin Anti-Xa Level POC ABG pH POC ABG pCO2 POC ABG pO2 Sodium Potassium Chloride Carbon Dioxide BUN Creatinine Glucose POC Glucose 223 H 236 H 164 H Calcium Phosphorus Magnesium AST C-Reactive Protein Total Protein Albumin Lipase Vitamin B12 TSH Urine WBC (Auto) Urine Chloride Urine Total Protein Crossmatch 10/15/16 10/15/16 10/15/16 19:14 20:31 21:23 WBC RBC Hgb Hct MCV RDW Plt Count Lymph % (Auto) Gray % (Auto) Gray # Seg Neutrophils % Seg Neuts % (Manual) Lymphocytes % (Manual) Monocytes % (Manual) Seg Neutrophils # Seg Neutrophils # Man Lymphocytes # (Manual) Monocytes # (Manual) Eosinophils # (Manual) Basophils # (Manual) PT INR APTT Heparin Anti-Xa Level POC ABG pH POC ABG pCO2 POC ABG pO2 Sodium Potassium Chloride Carbon Dioxide BUN Creatinine Glucose POC Glucose 138 H 158 H 158 H Calcium Phosphorus Magnesium AST C-Reactive Protein Total Protein Albumin Lipase Vitamin B12 TSH Urine WBC (Auto) Urine Chloride Urine Total Protein Crossmatch 10/15/16 10/15/16 10/16/16 22:04 22:57 00:11 WBC RBC Hgb Hct MCV RDW Plt Count Lymph % (Auto) Gray % (Auto) Gray # Seg Neutrophils % Seg Neuts % (Manual) Lymphocytes % (Manual) Monocytes % (Manual) Seg Neutrophils # Seg Neutrophils # Man Lymphocytes # (Manual) Monocytes # (Manual) Eosinophils # (Manual) Basophils # (Manual) PT INR APTT Heparin Anti-Xa Level POC ABG pH POC ABG pCO2 POC ABG pO2 Sodium Potassium Chloride Carbon Dioxide BUN Creatinine Glucose POC Glucose 168 H 213 H 166 H Calcium Phosphorus Magnesium AST C-Reactive Protein Total Protein Albumin Lipase Vitamin B12 TSH Urine WBC (Auto) Urine Chloride Urine Total Protein Crossmatch 10/16/16 10/16/16 10/16/16 01:16 02:32 03:38 WBC RBC Hgb Hct MCV RDW Plt Count Lymph % (Auto) Gray % (Auto) Gray # Seg Neutrophils % Seg Neuts % (Manual) Lymphocytes % (Manual) Monocytes % (Manual) Seg Neutrophils # Seg Neutrophils # Man Lymphocytes # (Manual) Monocytes # (Manual) Eosinophils # (Manual) Basophils # (Manual) PT INR APTT Heparin Anti-Xa Level POC ABG pH POC ABG pCO2 POC ABG pO2 Sodium Potassium Chloride Carbon Dioxide BUN Creatinine Glucose POC Glucose 171 H 164 H 147 H Calcium Phosphorus Magnesium AST C-Reactive Protein Total Protein Albumin Lipase Vitamin B12 TSH Urine WBC (Auto) Urine Chloride Urine Total Protein Crossmatch 10/16/16 10/16/16 10/16/16 04:14 04:14 04:49 WBC RBC Hgb Hct MCV RDW Plt Count Lymph % (Auto) Gray % (Auto) Gray # Seg Neutrophils % Seg Neuts % (Manual) Lymphocytes % (Manual) Monocytes % (Manual) Seg Neutrophils # Seg Neutrophils # Man Lymphocytes # (Manual) Monocytes # (Manual) Eosinophils # (Manual) Basophils # (Manual) PT INR APTT Heparin Anti-Xa Level POC ABG pH POC ABG pCO2 POC ABG pO2 Sodium 147 H Potassium Chloride 110.9 H Carbon Dioxide 19 L BUN Creatinine Glucose 139 H POC Glucose 144 H Calcium 7.3 L Phosphorus 2.3 L Magnesium AST C-Reactive Protein Total Protein Albumin Lipase 143 H Vitamin B12 TSH Urine WBC (Auto) Urine Chloride Urine Total Protein Crossmatch 10/16/16 10/16/16 10/16/16 05:03 05:41 05:58 WBC 16.5 H RBC 3.36 L Hgb Hct MCV 98 H RDW 13.1 L Plt Count Lymph % (Auto) 8.5 L Gray % (Auto) 7.6 H Gray # 1.3 H Seg Neutrophils % 83.3 H Seg Neuts % (Manual) Lymphocytes % (Manual) Monocytes % (Manual) Seg Neutrophils # 13.8 H Seg Neutrophils # Man Lymphocytes # (Manual) Monocytes # (Manual) Eosinophils # (Manual) Basophils # (Manual) PT INR APTT Heparin Anti-Xa Level POC ABG pH POC ABG pCO2 30.7 L POC ABG pO2 128 H Sodium Potassium Chloride Carbon Dioxide BUN Creatinine Glucose POC Glucose 131 H Calcium Phosphorus Magnesium AST C-Reactive Protein Total Protein Albumin Lipase Vitamin B12 TSH Urine WBC (Auto) Urine Chloride Urine Total Protein Crossmatch 10/16/16 10/16/16 10/16/16 06:32 09:27 09:35 WBC RBC Hgb Hct MCV RDW Plt Count Lymph % (Auto) Gray % (Auto) Gray # Seg Neutrophils % Seg Neuts % (Manual) Lymphocytes % (Manual) Monocytes % (Manual) Seg Neutrophils # Seg Neutrophils # Man Lymphocytes # (Manual) Monocytes # (Manual) Eosinophils # (Manual) Basophils # (Manual) PT INR APTT Heparin Anti-Xa Level POC ABG pH POC ABG pCO2 32.8 L POC ABG pO2 137 H Sodium Potassium Chloride Carbon Dioxide BUN Creatinine Glucose POC Glucose 121 H 150 H Calcium Phosphorus Magnesium AST C-Reactive Protein Total Protein Albumin Lipase Vitamin B12 TSH Urine WBC (Auto) Urine Chloride Urine Total Protein Crossmatch 10/16/16 10/16/16 10/16/16 10:47 13:27 14:24 WBC RBC Hgb Hct MCV RDW Plt Count Lymph % (Auto) Gray % (Auto) Gray # Seg Neutrophils % Seg Neuts % (Manual) Lymphocytes % (Manual) Monocytes % (Manual) Seg Neutrophils # Seg Neutrophils # Man Lymphocytes # (Manual) Monocytes # (Manual) Eosinophils # (Manual) Basophils # (Manual) PT INR APTT Heparin Anti-Xa Level POC ABG pH POC ABG pCO2 POC ABG pO2 Sodium Potassium Chloride Carbon Dioxide BUN Creatinine Glucose POC Glucose 184 H 171 H 174 H Calcium Phosphorus Magnesium AST C-Reactive Protein Total Protein Albumin Lipase Vitamin B12 TSH Urine WBC (Auto) Urine Chloride Urine Total Protein Crossmatch 10/16/16 10/16/16 10/16/16 15:48 16:26 18:17 WBC RBC Hgb Hct MCV RDW Plt Count Lymph % (Auto) Gray % (Auto) Gray # Seg Neutrophils % Seg Neuts % (Manual) Lymphocytes % (Manual) Monocytes % (Manual) Seg Neutrophils # Seg Neutrophils # Man Lymphocytes # (Manual) Monocytes # (Manual) Eosinophils # (Manual) Basophils # (Manual) PT INR APTT Heparin Anti-Xa Level POC ABG pH POC ABG pCO2 POC ABG pO2 Sodium Potassium Chloride Carbon Dioxide BUN Creatinine Glucose POC Glucose 205 H 204 H 234 H Calcium Phosphorus Magnesium AST C-Reactive Protein Total Protein Albumin Lipase Vitamin B12 TSH Urine WBC (Auto) Urine Chloride Urine Total Protein Crossmatch 10/16/16 10/16/16 10/16/16 19:40 20:33 21:36 WBC RBC Hgb Hct MCV RDW Plt Count Lymph % (Auto) Gray % (Auto) Gray # Seg Neutrophils % Seg Neuts % (Manual) Lymphocytes % (Manual) Monocytes % (Manual) Seg Neutrophils # Seg Neutrophils # Man Lymphocytes # (Manual) Monocytes # (Manual) Eosinophils # (Manual) Basophils # (Manual) PT INR APTT Heparin Anti-Xa Level POC ABG pH POC ABG pCO2 POC ABG pO2 Sodium Potassium Chloride Carbon Dioxide BUN Creatinine Glucose POC Glucose 167 H 153 H 158 H Calcium Phosphorus Magnesium AST C-Reactive Protein Total Protein Albumin Lipase Vitamin B12 TSH Urine WBC (Auto) Urine Chloride Urine Total Protein Crossmatch 10/16/16 10/16/16 10/17/16 22:54 23:48 00:47 WBC RBC Hgb Hct MCV RDW Plt Count Lymph % (Auto) Gray % (Auto) Gray # Seg Neutrophils % Seg Neuts % (Manual) Lymphocytes % (Manual) Monocytes % (Manual) Seg Neutrophils # Seg Neutrophils # Man Lymphocytes # (Manual) Monocytes # (Manual) Eosinophils # (Manual) Basophils # (Manual) PT INR APTT Heparin Anti-Xa Level POC ABG pH POC ABG pCO2 POC ABG pO2 Sodium Potassium Chloride Carbon Dioxide BUN Creatinine Glucose POC Glucose 180 H 207 H 196 H Calcium Phosphorus Magnesium AST C-Reactive Protein Total Protein Albumin Lipase Vitamin B12 TSH Urine WBC (Auto) Urine Chloride Urine Total Protein Crossmatch 10/17/16 10/17/16 10/17/16 01:57 02:49 03:50 WBC RBC Hgb Hct MCV RDW Plt Count Lymph % (Auto) Gray % (Auto) Gray # Seg Neutrophils % Seg Neuts % (Manual) Lymphocytes % (Manual) Monocytes % (Manual) Seg Neutrophils # Seg Neutrophils # Man Lymphocytes # (Manual) Monocytes # (Manual) Eosinophils # (Manual) Basophils # (Manual) PT INR APTT Heparin Anti-Xa Level POC ABG pH POC ABG pCO2 POC ABG pO2 Sodium Potassium Chloride Carbon Dioxide BUN Creatinine Glucose POC Glucose 180 H 151 H 106 H Calcium Phosphorus Magnesium AST C-Reactive Protein Total Protein Albumin Lipase Vitamin B12 TSH Urine WBC (Auto) Urine Chloride Urine Total Protein Crossmatch 10/17/16 10/17/16 10/17/16 04:59 06:03 06:35 WBC RBC Hgb Hct MCV RDW Plt Count Lymph % (Auto) Gray % (Auto) Gray # Seg Neutrophils % Seg Neuts % (Manual) Lymphocytes % (Manual) Monocytes % (Manual) Seg Neutrophils # Seg Neutrophils # Man Lymphocytes # (Manual) Monocytes # (Manual) Eosinophils # (Manual) Basophils # (Manual) PT INR APTT Heparin Anti-Xa Level POC ABG pH 7.453 H POC ABG pCO2 30.1 L POC ABG pO2 111 H Sodium Potassium Chloride Carbon Dioxide BUN Creatinine Glucose POC Glucose 145 H 157 H Calcium Phosphorus Magnesium AST C-Reactive Protein Total Protein Albumin Lipase Vitamin B12 TSH Urine WBC (Auto) Urine Chloride Urine Total Protein Crossmatch 10/17/16 10/17/16 10/17/16 07:08 07:11 08:01 WBC RBC Hgb Hct MCV RDW Plt Count Lymph % (Auto) Gray % (Auto) Gray # Seg Neutrophils % Seg Neuts % (Manual) Lymphocytes % (Manual) Monocytes % (Manual) Seg Neutrophils # Seg Neutrophils # Man Lymphocytes # (Manual) Monocytes # (Manual) Eosinophils # (Manual) Basophils # (Manual) PT INR APTT Heparin Anti-Xa Level POC ABG pH POC ABG pCO2 POC ABG pO2 Sodium 147 H Potassium Chloride 113.8 H Carbon Dioxide 19 L BUN Creatinine Glucose 136 H POC Glucose 136 H 152 H Calcium 7.7 L Phosphorus Magnesium AST C-Reactive Protein Total Protein Albumin Lipase Vitamin B12 TSH Urine WBC (Auto) Urine Chloride Urine Total Protein Crossmatch 10/17/16 10/17/16 10/17/16 08:23 09:17 09:53 WBC 18.1 H RBC 3.01 L Hgb 9.7 L Hct 29.4 L MCV 98 H RDW Plt Count 116 L Lymph % (Auto) Gray % (Auto) Gray # Seg Neutrophils % Seg Neuts % (Manual) 77.0 H Lymphocytes % (Manual) 4.0 L Monocytes % (Manual) 12.0 H Seg Neutrophils # Seg Neutrophils # Man 13.9 H Lymphocytes # (Manual) 0.7 L Monocytes # (Manual) 2.2 H Eosinophils # (Manual) Basophils # (Manual) PT INR APTT Heparin Anti-Xa Level POC ABG pH POC ABG pCO2 POC ABG pO2 Sodium Potassium Chloride Carbon Dioxide BUN Creatinine Glucose POC Glucose 148 H 137 H Calcium Phosphorus Magnesium AST C-Reactive Protein Total Protein Albumin Lipase Vitamin B12 TSH Urine WBC (Auto) Urine Chloride Urine Total Protein Crossmatch 10/17/16 10/17/16 10/17/16 11:43 16:07 17:42 WBC RBC Hgb Hct MCV RDW Plt Count Lymph % (Auto) Gray % (Auto) Gray # Seg Neutrophils % Seg Neuts % (Manual) Lymphocytes % (Manual) Monocytes % (Manual) Seg Neutrophils # Seg Neutrophils # Man Lymphocytes # (Manual) Monocytes # (Manual) Eosinophils # (Manual) Basophils # (Manual) PT 16.4 H INR 1.33 H APTT 38.8 H Heparin Anti-Xa Level POC ABG pH POC ABG pCO2 POC ABG pO2 Sodium Potassium Chloride Carbon Dioxide BUN Creatinine Glucose POC Glucose 179 H 153 H Calcium Phosphorus Magnesium AST C-Reactive Protein Total Protein Albumin Lipase Vitamin B12 TSH Urine WBC (Auto) Urine Chloride Urine Total Protein Crossmatch 10/17/16 10/18/16 10/18/16 22:54 04:37 05:39 WBC RBC Hgb Hct MCV RDW Plt Count Lymph % (Auto) Gray % (Auto) Gray # Seg Neutrophils % Seg Neuts % (Manual) Lymphocytes % (Manual) Monocytes % (Manual) Seg Neutrophils # Seg Neutrophils # Man Lymphocytes # (Manual) Monocytes # (Manual) Eosinophils # (Manual) Basophils # (Manual) PT INR APTT Heparin Anti-Xa Level 0.27 L POC ABG pH 7.454 H POC ABG pCO2 30.8 L POC ABG pO2 115 H Sodium Potassium Chloride Carbon Dioxide BUN Creatinine Glucose POC Glucose 69 L Calcium Phosphorus Magnesium AST C-Reactive Protein Total Protein Albumin Lipase Vitamin B12 TSH Urine WBC (Auto) Urine Chloride Urine Total Protein Crossmatch 10/18/16 10/18/16 10/18/16 06:46 06:46 06:46 WBC 20.5 H RBC 2.62 L Hgb 8.4 L Hct 26.0 L MCV 100 H RDW Plt Count Lymph % (Auto) Gray % (Auto) Gray # Seg Neutrophils % Seg Neuts % (Manual) 75.0 H Lymphocytes % (Manual) 9.0 L Monocytes % (Manual) 14.0 H Seg Neutrophils # Seg Neutrophils # Man 15.4 H Lymphocytes # (Manual) Monocytes # (Manual) 2.9 H Eosinophils # (Manual) Basophils # (Manual) PT INR APTT Heparin Anti-Xa Level POC ABG pH POC ABG pCO2 POC ABG pO2 Sodium Potassium Chloride 110.6 H Carbon Dioxide BUN Creatinine 1.3 H Glucose 153 H POC Glucose Calcium 8.0 L Phosphorus Magnesium 1.6 L AST C-Reactive Protein Total Protein Albumin Lipase Vitamin B12 TSH Urine WBC (Auto) Urine Chloride Urine Total Protein Crossmatch 10/18/16 10/18/16 10/18/16 07:30 11:37 17:51 WBC RBC Hgb Hct MCV RDW Plt Count Lymph % (Auto) Gray % (Auto) Gray # Seg Neutrophils % Seg Neuts % (Manual) Lymphocytes % (Manual) Monocytes % (Manual) Seg Neutrophils # Seg Neutrophils # Man Lymphocytes # (Manual) Monocytes # (Manual) Eosinophils # (Manual) Basophils # (Manual) PT INR APTT Heparin Anti-Xa Level POC ABG pH POC ABG pCO2 POC ABG pO2 Sodium Potassium Chloride Carbon Dioxide BUN Creatinine Glucose POC Glucose 162 H 156 H 164 H Calcium Phosphorus Magnesium AST C-Reactive Protein Total Protein Albumin Lipase Vitamin B12 TSH Urine WBC (Auto) Urine Chloride Urine Total Protein Crossmatch 10/18/16 10/19/16 10/19/16 23:44 03:59 05:13 WBC 18.2 H RBC 2.76 L Hgb 9.0 L Hct 27.7 L MCV 100 H RDW Plt Count Lymph % (Auto) Gray % (Auto) Gray # Seg Neutrophils % Seg Neuts % (Manual) 76.0 H Lymphocytes % (Manual) 10.0 L Monocytes % (Manual) Seg Neutrophils # Seg Neutrophils # Man 13.8 H Lymphocytes # (Manual) Monocytes # (Manual) Eosinophils # (Manual) Basophils # (Manual) PT INR APTT Heparin Anti-Xa Level POC ABG pH POC ABG pCO2 32.2 L POC ABG pO2 128 H Sodium Potassium Chloride Carbon Dioxide BUN Creatinine Glucose POC Glucose 278 H Calcium Phosphorus Magnesium AST C-Reactive Protein Total Protein Albumin Lipase Vitamin B12 TSH Urine WBC (Auto) Urine Chloride Urine Total Protein Crossmatch 10/19/16 10/19/16 10/19/16 06:01 06:30 12:20 WBC RBC Hgb Hct MCV RDW Plt Count Lymph % (Auto) Gray % (Auto) Gray # Seg Neutrophils % Seg Neuts % (Manual) Lymphocytes % (Manual) Monocytes % (Manual) Seg Neutrophils # Seg Neutrophils # Man Lymphocytes # (Manual) Monocytes # (Manual) Eosinophils # (Manual) Basophils # (Manual) PT INR APTT Heparin Anti-Xa Level POC ABG pH POC ABG pCO2 POC ABG pO2 Sodium Potassium Chloride Carbon Dioxide 18 L BUN Creatinine 1.3 H Glucose 262 H POC Glucose 261 H 349 H Calcium 7.7 L Phosphorus 4.8 H D Magnesium AST C-Reactive Protein Total Protein Albumin Lipase Vitamin B12 TSH Urine WBC (Auto) Urine Chloride Urine Total Protein Crossmatch 10/19/16 10/20/16 10/20/16 16:48 00:17 05:20 WBC 22.5 H RBC 2.80 L Hgb 8.9 L Hct 28.3 L MCV 101 H RDW Plt Count Lymph % (Auto) Gray % (Auto) Gray # Seg Neutrophils % Seg Neuts % (Manual) Lymphocytes % (Manual) 10.0 L Monocytes % (Manual) Seg Neutrophils # Seg Neutrophils # Man 13.3 H Lymphocytes # (Manual) Monocytes # (Manual) 1.1 H Eosinophils # (Manual) 0.7 H Basophils # (Manual) PT INR APTT Heparin Anti-Xa Level POC ABG pH POC ABG pCO2 POC ABG pO2 Sodium Potassium Chloride Carbon Dioxide BUN Creatinine Glucose POC Glucose 248 H 346 H Calcium Phosphorus Magnesium AST C-Reactive Protein Total Protein Albumin Lipase Vitamin B12 TSH Urine WBC (Auto) Urine Chloride Urine Total Protein Crossmatch 10/20/16 10/20/16 10/20/16 05:20 05:20 06:05 WBC RBC Hgb Hct MCV RDW Plt Count Lymph % (Auto) Gray % (Auto) Gray # Seg Neutrophils % Seg Neuts % (Manual) Lymphocytes % (Manual) Monocytes % (Manual) Seg Neutrophils # Seg Neutrophils # Man Lymphocytes # (Manual) Monocytes # (Manual) Eosinophils # (Manual) Basophils # (Manual) PT INR APTT Heparin Anti-Xa Level 0.20 L POC ABG pH POC ABG pCO2 POC ABG pO2 Sodium Potassium Chloride Carbon Dioxide BUN 20 H Creatinine Glucose 374 H POC Glucose 337 H Calcium 8.3 L Phosphorus Magnesium AST C-Reactive Protein Total Protein Albumin Lipase Vitamin B12 TSH Urine WBC (Auto) Urine Chloride Urine Total Protein Crossmatch 10/20/16 10/20/16 10/20/16 11:49 13:59 17:56 WBC RBC Hgb Hct MCV RDW Plt Count Lymph % (Auto) Gray % (Auto) Gray # Seg Neutrophils % Seg Neuts % (Manual) Lymphocytes % (Manual) Monocytes % (Manual) Seg Neutrophils # Seg Neutrophils # Man Lymphocytes # (Manual) Monocytes # (Manual) Eosinophils # (Manual) Basophils # (Manual) PT INR APTT Heparin Anti-Xa Level 2.00 H POC ABG pH POC ABG pCO2 POC ABG pO2 Sodium Potassium Chloride Carbon Dioxide BUN Creatinine Glucose POC Glucose 305 H 362 H Calcium Phosphorus Magnesium AST C-Reactive Protein Total Protein Albumin Lipase Vitamin B12 TSH Urine WBC (Auto) Urine Chloride Urine Total Protein Crossmatch 10/20/16 10/21/16 10/21/16 23:52 05:00 05:49 WBC 22.9 H RBC 2.49 L Hgb 7.7 L Hct 25.6 L MCV 103 H RDW Plt Count Lymph % (Auto) Gray % (Auto) Gray # Seg Neutrophils % Seg Neuts % (Manual) 94.0 H Lymphocytes % (Manual) 1.0 L Monocytes % (Manual) Seg Neutrophils # Seg Neutrophils # Man 21.5 H Lymphocytes # (Manual) 0.2 L Monocytes # (Manual) 1.1 H Eosinophils # (Manual) Basophils # (Manual) PT INR APTT Heparin Anti-Xa Level POC ABG pH POC ABG pCO2 POC ABG pO2 Sodium Potassium Chloride Carbon Dioxide BUN Creatinine Glucose POC Glucose 252 H 180 H Calcium Phosphorus Magnesium AST C-Reactive Protein Total Protein Albumin Lipase Vitamin B12 TSH Urine WBC (Auto) Urine Chloride Urine Total Protein Crossmatch 10/21/16 10/21/16 10/21/16 11:47 11:49 14:10 WBC RBC Hgb Hct MCV RDW Plt Count Lymph % (Auto) Gray % (Auto) Gray # Seg Neutrophils % Seg Neuts % (Manual) Lymphocytes % (Manual) Monocytes % (Manual) Seg Neutrophils # Seg Neutrophils # Man Lymphocytes # (Manual) Monocytes # (Manual) Eosinophils # (Manual) Basophils # (Manual) PT INR APTT Heparin Anti-Xa Level POC ABG pH POC ABG pCO2 POC ABG pO2 Sodium Potassium Chloride Carbon Dioxide BUN Creatinine Glucose POC Glucose 50 L 56 L 140 H Calcium Phosphorus Magnesium AST C-Reactive Protein Total Protein Albumin Lipase Vitamin B12 TSH Urine WBC (Auto) Urine Chloride Urine Total Protein Crossmatch 10/21/16 10/21/16 10/22/16 18:24 Unknown 00:07 WBC RBC Hgb Hct MCV RDW Plt Count Lymph % (Auto) Gray % (Auto) Gray # Seg Neutrophils % Seg Neuts % (Manual) Lymphocytes % (Manual) Monocytes % (Manual) Seg Neutrophils # Seg Neutrophils # Man Lymphocytes # (Manual) Monocytes # (Manual) Eosinophils # (Manual) Basophils # (Manual) PT INR APTT Heparin Anti-Xa Level POC ABG pH POC ABG pCO2 POC ABG pO2 Sodium 150 H Potassium 3.1 L Chloride 112.4 H Carbon Dioxide BUN 25 H Creatinine 1.4 H Glucose POC Glucose 175 H 218 H Calcium 8.0 L Phosphorus Magnesium AST C-Reactive Protein Total Protein Albumin Lipase Vitamin B12 TSH Urine WBC (Auto) Urine Chloride Urine Total Protein Crossmatch 10/22/16 10/22/16 10/22/16 04:20 04:20 10:25 WBC 20.8 H RBC 2.37 L Hgb 7.5 L Hct 23.9 L MCV 101 H RDW Plt Count Lymph % (Auto) Gray % (Auto) Gray # Seg Neutrophils % Seg Neuts % (Manual) 89.0 H Lymphocytes % (Manual) 7.0 L Monocytes % (Manual) Seg Neutrophils # Seg Neutrophils # Man 18.5 H Lymphocytes # (Manual) Monocytes # (Manual) Eosinophils # (Manual) Basophils # (Manual) 0.2 H PT INR APTT Heparin Anti-Xa Level POC ABG pH POC ABG pCO2 POC ABG pO2 Sodium 148 H Potassium 2.9 L* Chloride 109.4 H Carbon Dioxide BUN 26 H Creatinine Glucose 140 H POC Glucose Calcium 7.5 L Phosphorus Magnesium AST C-Reactive Protein Total Protein Albumin Lipase Vitamin B12 976.8 H TSH Urine WBC (Auto) Urine Chloride Urine Total Protein Crossmatch 10/22/16 10/22/16 10/22/16 10:25 14:50 18:16 WBC RBC Hgb Hct MCV RDW Plt Count Lymph % (Auto) Gray % (Auto) Gray # Seg Neutrophils % Seg Neuts % (Manual) Lymphocytes % (Manual) Monocytes % (Manual) Seg Neutrophils # Seg Neutrophils # Man Lymphocytes # (Manual) Monocytes # (Manual) Eosinophils # (Manual) Basophils # (Manual) PT INR APTT Heparin Anti-Xa Level POC ABG pH POC ABG pCO2 POC ABG pO2 Sodium Potassium Chloride Carbon Dioxide BUN Creatinine Glucose POC Glucose 193 H Calcium Phosphorus Magnesium AST C-Reactive Protein Total Protein Albumin Lipase Vitamin B12 TSH 0.143 L 0.162 L Urine WBC (Auto) Urine Chloride Urine Total Protein Crossmatch 10/22/16 10/22/16 10/22/16 20:00 20:00 20:00 WBC 24.1 H RBC 2.58 L Hgb 8.2 L Hct 26.4 L MCV 102 H RDW Plt Count Lymph % (Auto) Gray % (Auto) Gray # Seg Neutrophils % Seg Neuts % (Manual) 74.0 H Lymphocytes % (Manual) 7.0 L Monocytes % (Manual) Seg Neutrophils # Seg Neutrophils # Man 17.8 H Lymphocytes # (Manual) Monocytes # (Manual) Eosinophils # (Manual) Basophils # (Manual) PT INR APTT Heparin Anti-Xa Level 1.92 H POC ABG pH POC ABG pCO2 POC ABG pO2 Sodium Potassium Chloride Carbon Dioxide BUN Creatinine Glucose POC Glucose Calcium Phosphorus Magnesium AST C-Reactive Protein Total Protein Albumin Lipase Vitamin B12 TSH Urine WBC (Auto) Urine Chloride Urine Total Protein Crossmatch See Detail 10/23/16 10/23/16 10/23/16 00:21 06:09 12:07 WBC RBC Hgb Hct MCV RDW Plt Count Lymph % (Auto) Gray % (Auto) Gray # Seg Neutrophils % Seg Neuts % (Manual) Lymphocytes % (Manual) Monocytes % (Manual) Seg Neutrophils # Seg Neutrophils # Man Lymphocytes # (Manual) Monocytes # (Manual) Eosinophils # (Manual) Basophils # (Manual) PT INR APTT Heparin Anti-Xa Level POC ABG pH POC ABG pCO2 POC ABG pO2 Sodium Potassium Chloride Carbon Dioxide BUN Creatinine Glucose POC Glucose 283 H 241 H 340 H Calcium Phosphorus Magnesium AST C-Reactive Protein Total Protein Albumin Lipase Vitamin B12 TSH Urine WBC (Auto) Urine Chloride Urine Total Protein Crossmatch 10/23/16 10/23/16 10/23/16 14:01 16:00 17:59 WBC RBC Hgb Hct MCV RDW Plt Count Lymph % (Auto) Gray % (Auto) Gray # Seg Neutrophils % Seg Neuts % (Manual) Lymphocytes % (Manual) Monocytes % (Manual) Seg Neutrophils # Seg Neutrophils # Man Lymphocytes # (Manual) Monocytes # (Manual) Eosinophils # (Manual) Basophils # (Manual) PT INR APTT Heparin Anti-Xa Level 0.19 L POC ABG pH POC ABG pCO2 32.4 L POC ABG pO2 Sodium Potassium Chloride Carbon Dioxide BUN Creatinine Glucose POC Glucose 245 H Calcium Phosphorus Magnesium AST C-Reactive Protein Total Protein Albumin Lipase Vitamin B12 TSH Urine WBC (Auto) Urine Chloride Urine Total Protein Crossmatch 10/23/16 10/23/16 10/23/16 22:55 Unknown Unknown WBC 22.6 H RBC 3.26 L Hgb Hct MCV RDW 17.1 H Plt Count Lymph % (Auto) Gray % (Auto) Gray # Seg Neutrophils % Seg Neuts % (Manual) Lymphocytes % (Manual) 11.0 L Monocytes % (Manual) Seg Neutrophils # Seg Neutrophils # Man 14.0 H Lymphocytes # (Manual) Monocytes # (Manual) Eosinophils # (Manual) Basophils # (Manual) PT INR APTT Heparin Anti-Xa Level 0.17 L 0.15 L POC ABG pH POC ABG pCO2 POC ABG pO2 Sodium Potassium Chloride Carbon Dioxide BUN Creatinine Glucose POC Glucose Calcium Phosphorus Magnesium AST C-Reactive Protein Total Protein Albumin Lipase Vitamin B12 TSH Urine WBC (Auto) Urine Chloride Urine Total Protein Crossmatch 10/23/16 10/24/16 10/24/16 Unknown 00:05 05:30 WBC RBC Hgb Hct MCV RDW Plt Count Lymph % (Auto) Gray % (Auto) Gray # Seg Neutrophils % Seg Neuts % (Manual) Lymphocytes % (Manual) Monocytes % (Manual) Seg Neutrophils # Seg Neutrophils # Man Lymphocytes # (Manual) Monocytes # (Manual) Eosinophils # (Manual) Basophils # (Manual) PT INR APTT Heparin Anti-Xa Level 0.13 L POC ABG pH POC ABG pCO2 POC ABG pO2 Sodium Potassium Chloride 111.2 H Carbon Dioxide 20 L BUN 25 H Creatinine Glucose 227 H POC Glucose 118 H Calcium 7.1 L Phosphorus Magnesium AST C-Reactive Protein Total Protein Albumin Lipase Vitamin B12 TSH Urine WBC (Auto) Urine Chloride Urine Total Protein Crossmatch 10/24/16 10/24/16 10/24/16 11:00 11:00 12:06 WBC 17.6 H RBC 2.92 L Hgb 9.2 L Hct 28.3 L MCV RDW 16.9 H Plt Count Lymph % (Auto) Gray % (Auto) Gray # Seg Neutrophils % Seg Neuts % (Manual) Lymphocytes % (Manual) Monocytes % (Manual) Seg Neutrophils # Seg Neutrophils # Man Lymphocytes # (Manual) Monocytes # (Manual) Eosinophils # (Manual) Basophils # (Manual) PT INR APTT Heparin Anti-Xa Level 0.27 L POC ABG pH POC ABG pCO2 POC ABG pO2 Sodium Potassium Chloride Carbon Dioxide BUN Creatinine Glucose POC Glucose 166 H Calcium Phosphorus Magnesium AST C-Reactive Protein Total Protein Albumin Lipase Vitamin B12 TSH Urine WBC (Auto) Urine Chloride Urine Total Protein Crossmatch 10/24/16 10/25/16 10/25/16 12:27 00:49 03:30 WBC RBC Hgb 8.8 L Hct 28.1 L MCV RDW Plt Count Lymph % (Auto) Gray % (Auto) Gray # Seg Neutrophils % Seg Neuts % (Manual) Lymphocytes % (Manual) Monocytes % (Manual) Seg Neutrophils # Seg Neutrophils # Man Lymphocytes # (Manual) Monocytes # (Manual) Eosinophils # (Manual) Basophils # (Manual) PT INR APTT Heparin Anti-Xa Level POC ABG pH POC ABG pCO2 33.9 L POC ABG pO2 Sodium Potassium Chloride Carbon Dioxide BUN Creatinine Glucose POC Glucose 121 H Calcium Phosphorus Magnesium AST C-Reactive Protein Total Protein Albumin Lipase Vitamin B12 TSH Urine WBC (Auto) Urine Chloride Urine Total Protein Crossmatch 10/25/16 10/25/16 10/25/16 09:49 12:10 19:25 WBC 21.1 H RBC 3.02 L Hgb 9.3 L Hct 28.9 L MCV RDW 16.3 H Plt Count Lymph % (Auto) Gray % (Auto) Gray # Seg Neutrophils % Seg Neuts % (Manual) 81.0 H Lymphocytes % (Manual) 9.0 L Monocytes % (Manual) Seg Neutrophils # Seg Neutrophils # Man 17.1 H Lymphocytes # (Manual) Monocytes # (Manual) Eosinophils # (Manual) Basophils # (Manual) PT INR APTT Heparin Anti-Xa Level POC ABG pH POC ABG pCO2 POC ABG pO2 Sodium Potassium Chloride Carbon Dioxide BUN Creatinine Glucose POC Glucose 158 H 151 H Calcium Phosphorus Magnesium AST C-Reactive Protein Total Protein Albumin Lipase Vitamin B12 TSH Urine WBC (Auto) Urine Chloride Urine Total Protein Crossmatch 10/26/16 10/26/16 10/26/16 00:20 01:09 05:02 WBC 22.2 H RBC 2.89 L Hgb 8.7 L Hct 27.8 L MCV RDW 16.4 H Plt Count Lymph % (Auto) Gray % (Auto) Gray # Seg Neutrophils % Seg Neuts % (Manual) Lymphocytes % (Manual) Monocytes % (Manual) Seg Neutrophils # Seg Neutrophils # Man Lymphocytes # (Manual) Monocytes # (Manual) Eosinophils # (Manual) Basophils # (Manual) PT INR APTT Heparin Anti-Xa Level POC ABG pH POC ABG pCO2 POC ABG pO2 Sodium Potassium Chloride Carbon Dioxide BUN Creatinine Glucose POC Glucose 44 L 112 H Calcium Phosphorus Magnesium AST C-Reactive Protein Total Protein Albumin Lipase Vitamin B12 TSH Urine WBC (Auto) Urine Chloride Urine Total Protein Crossmatch 10/26/16 05:02 WBC RBC Hgb Hct MCV RDW Plt Count Lymph % (Auto) Gray % (Auto) Gray # Seg Neutrophils % Seg Neuts % (Manual) Lymphocytes % (Manual) Monocytes % (Manual) Seg Neutrophils # Seg Neutrophils # Man Lymphocytes # (Manual) Monocytes # (Manual) Eosinophils # (Manual) Basophils # (Manual) PT INR APTT Heparin Anti-Xa Level POC ABG pH POC ABG pCO2 POC ABG pO2 Sodium Potassium 3.2 L D Chloride Carbon Dioxide 20 L BUN 24 H Creatinine Glucose 104 H POC Glucose Calcium 7.7 L Phosphorus Magnesium AST C-Reactive Protein Total Protein Albumin Lipase Vitamin B12 TSH Urine WBC (Auto) Urine Chloride Urine Total Protein Crossmatch Allied health notes reviewed: RT
[2016-10-26] MEDS: HEPARIN/ 0.45% NACL-25,000 UNIT/500 ML 25,000 UNITS/500 ML BAG IV SCH (12:08)
--- NOTE | 2016-10-26 13:03 | Progress Note ---
Assessment and Plan A/P: 1. I spoke to the patient's about tracheostomy. I explained the procedure and went over the risks and benefits. He wants to wait a for a few more days to think about it before giving consent. We will re-visit in a couple days. Subjective Date of service: 10/26/16 Narrative: The patient remains intubated. Objective Vital Signs - 12hr 10/26/16 10/26/16 10/26/16 02:00 03:00 04:00 Temperature 98.2 F Pulse Rate 113 H 97 H 106 H Pulse Rate [ Apical] Pulse Rate [ 109 H From Monitor] Respiratory 25 H 26 H 27 H Rate Blood Pressure 140/74 141/62 144/70 O2 Sat by Pulse 97 98 Oximetry 10/26/16 10/26/16 10/26/16 05:00 06:00 06:32 Temperature Pulse Rate 93 H 85 111 H Pulse Rate [ Apical] Pulse Rate [ From Monitor] Respiratory 25 H 29 H Rate Blood Pressure 145/72 145/72 132/82 O2 Sat by Pulse 98 100 Oximetry 10/26/16 10/26/16 10/26/16 07:00 07:27 07:32 Temperature 97.5 F L Pulse Rate 99 H Pulse Rate [ 100 H Apical] Pulse Rate [ 100 H From Monitor] Respiratory 18 22 Rate Blood Pressure 153/64 O2 Sat by Pulse 98 98 Oximetry 10/26/16 10/26/16 10/26/16 08:00 08:26 09:00 Temperature Pulse Rate 86 85 105 H Pulse Rate [ Apical] Pulse Rate [ From Monitor] Respiratory 19 19 Rate Blood Pressure 157/78 157/78 157/78 O2 Sat by Pulse 99 100 100 Oximetry 10/26/16 10/26/16 10:00 12:48 Temperature Pulse Rate 120 H 107 H Pulse Rate [ Apical] Pulse Rate [ From Monitor] Respiratory 27 H Rate Blood Pressure 170/108 189/82 O2 Sat by Pulse 100 100 Oximetry - Neck no masses, trachea midline - Labs 10/26/16 05:02 10/26/16 05:02 Diabetes panel 10/26/16 Range/Units 05:02 Sodium 139 (137-145) mmol/L Potassium 3.2 L D (3.6-5.0) mmol/L Chloride 103.2 (98-107) mmol/L Carbon Dioxide 20 L (22-30) mmol/L BUN 24 H (7-17) mg/dL Creatinine 0.8 (0.7-1.2) mg/dL Glucose 104 H (65-100) mg/dL Calcium 7.7 L (8.4-10.2) mg/dL Calcium panel 10/26/16 Range/Units 05:02 Calcium 7.7 L (8.4-10.2) mg/dL Pituitary panel 10/26/16 Range/Units 05:02 Sodium 139 (137-145) mmol/L Potassium 3.2 L D (3.6-5.0) mmol/L Chloride 103.2 (98-107) mmol/L Carbon Dioxide 20 L (22-30) mmol/L BUN 24 H (7-17) mg/dL Creatinine 0.8 (0.7-1.2) mg/dL Glucose 104 H (65-100) mg/dL Calcium 7.7 L (8.4-10.2) mg/dL Adrenal panel 10/26/16 Range/Units 05:02 Sodium 139 (137-145) mmol/L Potassium 3.2 L D (3.6-5.0) mmol/L Chloride 103.2 (98-107) mmol/L Carbon Dioxide 20 L (22-30) mmol/L BUN 24 H (7-17) mg/dL Creatinine 0.8 (0.7-1.2) mg/dL Glucose 104 H (65-100) mg/dL Calcium 7.7 L (8.4-10.2) mg/dL
[2016-10-26 14:48] LABS: ISTAT Base Excess -5; ISTAT PH 7.405 (7.35-7.45); ISTAT PO2 33 (80-105); ISTAT SO2 65; ISTAT TCO2 21
--- NOTE | 2016-10-26 15:33 | Progress Note ---
Assessment and Plan 1. Encephalopathy. Multiple factors. Supportive. 2. Sepsis. Antibiotics. 3. Respiratory failure. ICU and respiratory support. 4. Critic illness myopathy/neuropathy as differential. Supportive. 5. DKA. Medicine and internal medicine. 6. Pending brain MRI with/without contrast. 7. Right leg, below knee, pulse weakness, probably peripheral artery disease. Suggest vascular consult. 8. HTN. Controlled. Medicine. 9. DM. Medicine. 10. Treat risk factors of CVA. Suggest Aspirin in no contraindication. 11. If clinically worse, can't have brain MRI, may consider LP, CSF for infections. 12. Plan discussed with her nurse. 13. Dr. Doroteo Melgar will follow up with you. Subjective Date of service: 10/26/16 Principal diagnosis: respiratory failure on mechanical ventilatory support, DKA Interval history: No significant changes, still can't extubated. Objective - Vital Sign Vital Signs - 12hr 10/26/16 10/26/16 10/26/16 04:00 05:00 06:00 Temperature 98.2 F Pulse Rate 106 H 93 H 85 Pulse Rate [ Apical] Pulse Rate [ 109 H From Monitor] Respiratory 27 H 25 H 29 H Rate Blood Pressure 144/70 145/72 145/72 O2 Sat by Pulse 98 98 100 Oximetry 10/26/16 10/26/16 10/26/16 06:32 07:00 07:27 Temperature 97.5 F L Pulse Rate 111 H 99 H Pulse Rate [ Apical] Pulse Rate [ From Monitor] Respiratory 18 Rate Blood Pressure 132/82 153/64 O2 Sat by Pulse 98 Oximetry 10/26/16 10/26/16 10/26/16 07:32 08:00 08:26 Temperature Pulse Rate 86 85 Pulse Rate [ 100 H Apical] Pulse Rate [ 100 H From Monitor] Respiratory 22 19 Rate Blood Pressure 157/78 157/78 O2 Sat by Pulse 98 99 100 Oximetry 10/26/16 10/26/16 10/26/16 09:00 10:00 12:00 Temperature 97.5 F L Pulse Rate 105 H 120 H Pulse Rate [ Apical] Pulse Rate [ From Monitor] Respiratory 19 27 H Rate Blood Pressure 157/78 170/108 O2 Sat by Pulse 100 100 Oximetry 10/26/16 10/26/16 12:48 14:09 Temperature Pulse Rate 107 H 111 H Pulse Rate [ Apical] Pulse Rate [ From Monitor] Respiratory Rate Blood Pressure 189/82 152/78 O2 Sat by Pulse 100 Oximetry - Respiratory Respiratory: lungs clear, respiratory distress - Cardiovascular Cardiovascular: regular rate, no murmurs - Gastrointestinal Gastrointestinal: soft, non-distended - Neurologic Cranial nerve examination: PERRL, EOMI, face symmetric, intact gag reflex, intact cough reflex, intact corneal reflex Detailed motor examination: other (Moved all extremities but weakness.) Reflexes: 0: ankle, bicep, knee, tricep - Laboratory Findings CBC and BMP: 10/26/16 05:02 10/26/16 05:02 Abnormal Lab Findings: Abnormal Labs 10/13/16 10/13/16 10/13/16 06:38 06:38 07:23 WBC RBC Hgb Hct MCV RDW Plt Count Lymph % (Auto) [place] % (Auto) [place] # Seg Neutrophils % Seg Neuts % (Manual) Lymphocytes % (Manual) Monocytes % (Manual) Seg Neutrophils # Seg Neutrophils # Man Lymphocytes # (Manual) Monocytes # (Manual) Eosinophils # (Manual) Basophils # (Manual) PT INR APTT Heparin Anti-Xa Level POC ABG pH POC ABG pCO2 POC ABG pO2 Sodium Potassium 6.2 H* Chloride Carbon Dioxide 8 L* BUN 85 H Creatinine 2.8 H Glucose 602 H* POC Glucose 495 H Calcium 7.9 L Phosphorus 6.9 H D Magnesium 3.0 H AST C-Reactive Protein Total Protein Albumin Lipase Vitamin B12 TSH Urine WBC (Auto) Urine Chloride Urine Total Protein Crossmatch 10/13/16 10/13/16 10/13/16 08:49 08:55 10:12 WBC RBC Hgb Hct MCV RDW Plt Count Lymph % (Auto) [place] % (Auto) [place] # Seg Neutrophils % Seg Neuts % (Manual) Lymphocytes % (Manual) Monocytes % (Manual) Seg Neutrophils # Seg Neutrophils # Man Lymphocytes # (Manual) Monocytes # (Manual) Eosinophils # (Manual) Basophils # (Manual) PT INR APTT Heparin Anti-Xa Level POC ABG pH POC ABG pCO2 POC ABG pO2 Sodium Potassium 5.6 H Chloride Carbon Dioxide 11 L BUN 77 H Creatinine 2.7 H Glucose 457 H POC Glucose > 500 H 424 H Calcium 8.0 L Phosphorus Magnesium AST C-Reactive Protein Total Protein Albumin Lipase Vitamin B12 TSH Urine WBC (Auto) Urine Chloride Urine Total Protein Crossmatch 10/13/16 10/13/16 10/13/16 10:44 11:22 12:20 WBC RBC Hgb Hct MCV RDW Plt Count Lymph % (Auto) [place] % (Auto) [place] # Seg Neutrophils % Seg Neuts % (Manual) Lymphocytes % (Manual) Monocytes % (Manual) Seg Neutrophils # Seg Neutrophils # Man Lymphocytes # (Manual) Monocytes # (Manual) Eosinophils # (Manual) Basophils # (Manual) PT INR APTT Heparin Anti-Xa Level POC ABG pH POC ABG pCO2 POC ABG pO2 Sodium Potassium 5.4 H Chloride Carbon Dioxide 14 L BUN 72 H Creatinine 2.6 H Glucose 383 H POC Glucose 391 H 313 H Calcium 8.2 L Phosphorus Magnesium AST C-Reactive Protein Total Protein Albumin Lipase Vitamin B12 TSH Urine WBC (Auto) Urine Chloride Urine Total Protein Crossmatch 10/13/16 10/13/16 10/13/16 13:32 14:44 15:57 WBC RBC Hgb Hct MCV RDW Plt Count Lymph % (Auto) [place] % (Auto) [place] # Seg Neutrophils % Seg Neuts % (Manual) Lymphocytes % (Manual) Monocytes % (Manual) Seg Neutrophils # Seg Neutrophils # Man Lymphocytes # (Manual) Monocytes # (Manual) Eosinophils # (Manual) Basophils # (Manual) PT INR APTT Heparin Anti-Xa Level POC ABG pH POC ABG pCO2 POC ABG pO2 Sodium Potassium Chloride Carbon Dioxide BUN Creatinine Glucose POC Glucose 296 H 210 H 190 H Calcium Phosphorus Magnesium AST C-Reactive Protein Total Protein Albumin Lipase Vitamin B12 TSH Urine WBC (Auto) Urine Chloride Urine Total Protein Crossmatch 10/13/16 10/13/16 10/13/16 16:14 16:14 17:17 WBC RBC Hgb Hct MCV RDW Plt Count Lymph % (Auto) [place] % (Auto) [place] # Seg Neutrophils % Seg Neuts % (Manual) Lymphocytes % (Manual) Monocytes % (Manual) Seg Neutrophils # Seg Neutrophils # Man Lymphocytes # (Manual) Monocytes # (Manual) Eosinophils # (Manual) Basophils # (Manual) PT INR APTT Heparin Anti-Xa Level POC ABG pH POC ABG pCO2 POC ABG pO2 Sodium Potassium Chloride Carbon Dioxide 17 L BUN 58 H Creatinine 1.8 H Glucose 172 H POC Glucose 193 H Calcium 7.7 L Phosphorus Magnesium AST C-Reactive Protein 10.50 H Total Protein Albumin Lipase Vitamin B12 TSH Urine WBC (Auto) Urine Chloride Urine Total Protein Crossmatch 10/13/16 10/13/16 10/13/16 17:55 18:32 19:41 WBC RBC Hgb Hct MCV RDW Plt Count Lymph % (Auto) [place] % (Auto) [place] # Seg Neutrophils % Seg Neuts % (Manual) Lymphocytes % (Manual) Monocytes % (Manual) Seg Neutrophils # Seg Neutrophils # Man Lymphocytes # (Manual) Monocytes # (Manual) Eosinophils # (Manual) Basophils # (Manual) PT INR APTT Heparin Anti-Xa Level POC ABG pH POC ABG pCO2 30.6 L POC ABG pO2 218 H Sodium Potassium Chloride Carbon Dioxide BUN Creatinine Glucose POC Glucose 192 H 177 H Calcium Phosphorus Magnesium AST C-Reactive Protein Total Protein Albumin Lipase Vitamin B12 TSH Urine WBC (Auto) Urine Chloride Urine Total Protein Crossmatch 10/13/16 10/13/16 10/13/16 20:54 22:07 23:13 WBC RBC Hgb Hct MCV RDW Plt Count Lymph % (Auto) [place] % (Auto) [place] # Seg Neutrophils % Seg Neuts % (Manual) Lymphocytes % (Manual) Monocytes % (Manual) Seg Neutrophils # Seg Neutrophils # Man Lymphocytes # (Manual) Monocytes # (Manual) Eosinophils # (Manual) Basophils # (Manual) PT INR APTT Heparin Anti-Xa Level POC ABG pH POC ABG pCO2 POC ABG pO2 Sodium Potassium Chloride Carbon Dioxide BUN Creatinine Glucose POC Glucose 178 H 160 H 168 H Calcium Phosphorus Magnesium AST C-Reactive Protein Total Protein Albumin Lipase Vitamin B12 TSH Urine WBC (Auto) Urine Chloride Urine Total Protein Crossmatch 10/13/16 10/13/16 10/14/16 23:25 Unknown 00:21 WBC RBC Hgb Hct MCV RDW Plt Count Lymph % (Auto) [place] % (Auto) [place] # Seg Neutrophils % Seg Neuts % (Manual) Lymphocytes % (Manual) Monocytes % (Manual) Seg Neutrophils # Seg Neutrophils # Man Lymphocytes # (Manual) Monocytes # (Manual) Eosinophils # (Manual) Basophils # (Manual) PT INR APTT Heparin Anti-Xa Level POC ABG pH POC ABG pCO2 POC ABG pO2 Sodium 148 H Potassium Chloride 114.6 H Carbon Dioxide 17 L BUN 56 H Creatinine 1.6 H Glucose 151 H POC Glucose 171 H Calcium 7.8 L Phosphorus Magnesium AST C-Reactive Protein Total Protein Albumin Lipase Vitamin B12 TSH Urine WBC (Auto) Urine Chloride 10.0 L Urine Total Protein < 4 L Crossmatch 10/14/16 10/14/16 10/14/16 01:22 02:29 03:30 WBC RBC Hgb Hct MCV RDW Plt Count Lymph % (Auto) [place] % (Auto) [place] # Seg Neutrophils % Seg Neuts % (Manual) Lymphocytes % (Manual) Monocytes % (Manual) Seg Neutrophils # Seg Neutrophils # Man Lymphocytes # (Manual) Monocytes # (Manual) Eosinophils # (Manual) Basophils # (Manual) PT INR APTT Heparin Anti-Xa Level POC ABG pH POC ABG pCO2 POC ABG pO2 Sodium Potassium Chloride Carbon Dioxide BUN Creatinine Glucose POC Glucose 144 H 136 H 143 H Calcium Phosphorus Magnesium AST C-Reactive Protein Total Protein Albumin Lipase Vitamin B12 TSH Urine WBC (Auto) Urine Chloride Urine Total Protein Crossmatch 10/14/16 10/14/16 10/14/16 04:28 05:16 05:44 WBC RBC Hgb Hct MCV RDW Plt Count Lymph % (Auto) [place] % (Auto) [place] # Seg Neutrophils % Seg Neuts % (Manual) Lymphocytes % (Manual) Monocytes % (Manual) Seg Neutrophils # Seg Neutrophils # Man Lymphocytes # (Manual) Monocytes # (Manual) Eosinophils # (Manual) Basophils # (Manual) PT INR APTT Heparin Anti-Xa Level POC ABG pH POC ABG pCO2 28.2 L POC ABG pO2 125 H Sodium Potassium Chloride Carbon Dioxide BUN Creatinine Glucose POC Glucose 133 H 160 H Calcium Phosphorus Magnesium AST C-Reactive Protein Total Protein Albumin Lipase Vitamin B12 TSH Urine WBC (Auto) Urine Chloride Urine Total Protein Crossmatch 10/14/16 10/14/16 10/14/16 06:12 06:45 07:03 WBC RBC Hgb Hct MCV RDW Plt Count Lymph % (Auto) [place] % (Auto) [place] # Seg Neutrophils % Seg Neuts % (Manual) Lymphocytes % (Manual) Monocytes % (Manual) Seg Neutrophils # Seg Neutrophils # Man Lymphocytes # (Manual) Monocytes # (Manual) Eosinophils # (Manual) Basophils # (Manual) PT INR APTT Heparin Anti-Xa Level POC ABG pH POC ABG pCO2 POC ABG pO2 Sodium 149 H Potassium Chloride 115.4 H Carbon Dioxide 17 L BUN 45 H Creatinine 1.5 H Glucose 139 H POC Glucose 149 H Calcium 7.4 L Phosphorus 1.0 L D Magnesium AST C-Reactive Protein Total Protein Albumin Lipase Vitamin B12 TSH Urine WBC (Auto) Urine Chloride Urine Total Protein Crossmatch 10/14/16 10/14/16 10/14/16 07:03 08:02 09:16 WBC RBC Hgb Hct MCV RDW Plt Count Lymph % (Auto) [place] % (Auto) [place] # Seg Neutrophils % Seg Neuts % (Manual) Lymphocytes % (Manual) Monocytes % (Manual) Seg Neutrophils # Seg Neutrophils # Man Lymphocytes # (Manual) Monocytes # (Manual) Eosinophils # (Manual) Basophils # (Manual) PT INR APTT Heparin Anti-Xa Level POC ABG pH POC ABG pCO2 POC ABG pO2 Sodium Potassium Chloride Carbon Dioxide BUN Creatinine Glucose POC Glucose 156 H 158 H Calcium Phosphorus Magnesium AST C-Reactive Protein Total Protein Albumin Lipase 738 H Vitamin B12 TSH Urine WBC (Auto) Urine Chloride Urine Total Protein Crossmatch 10/14/16 10/14/16 10/14/16 10:26 11:03 11:57 WBC RBC Hgb Hct MCV RDW Plt Count Lymph % (Auto) [place] % (Auto) [place] # Seg Neutrophils % Seg Neuts % (Manual) Lymphocytes % (Manual) Monocytes % (Manual) Seg Neutrophils # Seg Neutrophils # Man Lymphocytes # (Manual) Monocytes # (Manual) Eosinophils # (Manual) Basophils # (Manual) PT INR APTT Heparin Anti-Xa Level POC ABG pH 7.198 L POC ABG pCO2 47.5 H POC ABG pO2 Sodium Potassium Chloride Carbon Dioxide BUN Creatinine Glucose POC Glucose 174 H 189 H Calcium Phosphorus Magnesium AST C-Reactive Protein Total Protein Albumin Lipase Vitamin B12 TSH Urine WBC (Auto) Urine Chloride Urine Total Protein Crossmatch 10/14/16 10/14/16 10/14/16 12:02 12:02 13:11 WBC 13.4 H RBC 3.60 L Hgb Hct MCV 98 H D RDW 13.1 L Plt Count Lymph % (Auto) [place] % (Auto) [place] # Seg Neutrophils % Seg Neuts % (Manual) Lymphocytes % (Manual) Monocytes % (Manual) Seg Neutrophils # Seg Neutrophils # Man Lymphocytes # (Manual) Monocytes # (Manual) Eosinophils # (Manual) Basophils # (Manual) PT INR APTT Heparin Anti-Xa Level POC ABG pH POC ABG pCO2 POC ABG pO2 Sodium Potassium Chloride 110.7 H Carbon Dioxide 19 L BUN 38 H Creatinine 1.4 H Glucose 182 H POC Glucose 173 H Calcium 7.5 L Phosphorus Magnesium AST C-Reactive Protein Total Protein Albumin Lipase Vitamin B12 TSH Urine WBC (Auto) Urine Chloride Urine Total Protein Crossmatch 10/14/16 10/14/16 10/14/16 14:24 15:31 16:36 WBC RBC Hgb Hct MCV RDW Plt Count Lymph % (Auto) [place] % (Auto) [place] # Seg Neutrophils % Seg Neuts % (Manual) Lymphocytes % (Manual) Monocytes % (Manual) Seg Neutrophils # Seg Neutrophils # Man Lymphocytes # (Manual) Monocytes # (Manual) Eosinophils # (Manual) Basophils # (Manual) PT INR APTT Heparin Anti-Xa Level POC ABG pH POC ABG pCO2 POC ABG pO2 Sodium Potassium Chloride Carbon Dioxide BUN Creatinine Glucose POC Glucose 123 H 124 H 156 H Calcium Phosphorus Magnesium AST C-Reactive Protein Total Protein Albumin Lipase Vitamin B12 TSH Urine WBC (Auto) Urine Chloride Urine Total Protein Crossmatch 10/14/16 10/14/16 10/14/16 17:43 19:00 20:08 WBC RBC Hgb Hct MCV RDW Plt Count Lymph % (Auto) [place] % (Auto) [place] # Seg Neutrophils % Seg Neuts % (Manual) Lymphocytes % (Manual) Monocytes % (Manual) Seg Neutrophils # Seg Neutrophils # Man Lymphocytes # (Manual) Monocytes # (Manual) Eosinophils # (Manual) Basophils # (Manual) PT INR APTT Heparin Anti-Xa Level POC ABG pH POC ABG pCO2 POC ABG pO2 Sodium Potassium Chloride Carbon Dioxide BUN Creatinine Glucose POC Glucose 154 H 123 H 138 H Calcium Phosphorus Magnesium AST C-Reactive Protein Total Protein Albumin Lipase Vitamin B12 TSH Urine WBC (Auto) Urine Chloride Urine Total Protein Crossmatch 10/14/16 10/14/16 10/14/16 21:17 22:25 23:37 WBC RBC Hgb Hct MCV RDW Plt Count Lymph % (Auto) [place] % (Auto) [place] # Seg Neutrophils % Seg Neuts % (Manual) Lymphocytes % (Manual) Monocytes % (Manual) Seg Neutrophils # Seg Neutrophils # Man Lymphocytes # (Manual) Monocytes # (Manual) Eosinophils # (Manual) Basophils # (Manual) PT INR APTT Heparin Anti-Xa Level POC ABG pH POC ABG pCO2 POC ABG pO2 Sodium Potassium Chloride Carbon Dioxide BUN Creatinine Glucose POC Glucose 148 H 132 H 137 H Calcium Phosphorus Magnesium AST C-Reactive Protein Total Protein Albumin Lipase Vitamin B12 TSH Urine WBC (Auto) Urine Chloride Urine Total Protein Crossmatch 10/15/16 10/15/16 10/15/16 00:49 01:53 03:06 WBC RBC Hgb Hct MCV RDW Plt Count Lymph % (Auto) [place] % (Auto) [place] # Seg Neutrophils % Seg Neuts % (Manual) Lymphocytes % (Manual) Monocytes % (Manual) Seg Neutrophils # Seg Neutrophils # Man Lymphocytes # (Manual) Monocytes # (Manual) Eosinophils # (Manual) Basophils # (Manual) PT INR APTT Heparin Anti-Xa Level POC ABG pH POC ABG pCO2 POC ABG pO2 Sodium Potassium Chloride Carbon Dioxide BUN Creatinine Glucose POC Glucose 132 H 134 H 134 H Calcium Phosphorus Magnesium AST C-Reactive Protein Total Protein Albumin Lipase Vitamin B12 TSH Urine WBC (Auto) Urine Chloride Urine Total Protein Crossmatch 10/15/16 10/15/16 10/15/16 04:40 04:46 06:21 WBC RBC Hgb Hct MCV RDW Plt Count Lymph % (Auto) [place] % (Auto) [place] # Seg Neutrophils % Seg Neuts % (Manual) Lymphocytes % (Manual) Monocytes % (Manual) Seg Neutrophils # Seg Neutrophils # Man Lymphocytes # (Manual) Monocytes # (Manual) Eosinophils # (Manual) Basophils # (Manual) PT INR APTT Heparin Anti-Xa Level POC ABG pH POC ABG pCO2 30.7 L POC ABG pO2 108 H Sodium Potassium Chloride 109.0 H Carbon Dioxide 17 L BUN 27 H Creatinine Glucose 124 H POC Glucose 160 H Calcium 7.5 L Phosphorus Magnesium AST 79 H C-Reactive Protein Total Protein 5.5 L Albumin 3.0 L Lipase Vitamin B12 TSH Urine WBC (Auto) Urine Chloride Urine Total Protein Crossmatch 10/15/16 10/15/16 10/15/16 07:12 08:01 09:03 WBC RBC Hgb Hct MCV RDW Plt Count Lymph % (Auto) [place] % (Auto) [place] # Seg Neutrophils % Seg Neuts % (Manual) Lymphocytes % (Manual) Monocytes % (Manual) Seg Neutrophils # Seg Neutrophils # Man Lymphocytes # (Manual) Monocytes # (Manual) Eosinophils # (Manual) Basophils # (Manual) PT INR APTT Heparin Anti-Xa Level POC ABG pH POC ABG pCO2 POC ABG pO2 Sodium Potassium Chloride Carbon Dioxide BUN Creatinine Glucose POC Glucose 179 H 187 H 165 H Calcium Phosphorus Magnesium AST C-Reactive Protein Total Protein Albumin Lipase Vitamin B12 TSH Urine WBC (Auto) Urine Chloride Urine Total Protein Crossmatch 10/15/16 10/15/16 10/15/16 10:06 10:06 10:07 WBC 12.1 H RBC 3.01 L Hgb 9.7 L Hct 29.6 L MCV 98 H RDW Plt Count 129 L Lymph % (Auto) [place] % (Auto) [place] # Seg Neutrophils % Seg Neuts % (Manual) Lymphocytes % (Manual) Monocytes % (Manual) Seg Neutrophils # Seg Neutrophils # Man Lymphocytes # (Manual) Monocytes # (Manual) Eosinophils # (Manual) Basophils # (Manual) PT INR APTT Heparin Anti-Xa Level POC ABG pH POC ABG pCO2 POC ABG pO2 Sodium Potassium 3.2 L D Chloride 109.6 H Carbon Dioxide 18 L BUN 22 H Creatinine Glucose 127 H POC Glucose 147 H Calcium 7.0 L Phosphorus Magnesium AST C-Reactive Protein Total Protein Albumin Lipase Vitamin B12 TSH Urine WBC (Auto) Urine Chloride Urine Total Protein Crossmatch 10/15/16 10/15/16 10/15/16 11:05 11:06 11:57 WBC RBC Hgb Hct MCV RDW Plt Count Lymph % (Auto) [place] % (Auto) [place] # Seg Neutrophils % Seg Neuts % (Manual) Lymphocytes % (Manual) Monocytes % (Manual) Seg Neutrophils # Seg Neutrophils # Man Lymphocytes # (Manual) Monocytes # (Manual) Eosinophils # (Manual) Basophils # (Manual) PT INR APTT Heparin Anti-Xa Level POC ABG pH 7.305 L POC ABG pCO2 POC ABG pO2 Sodium Potassium Chloride Carbon Dioxide BUN Creatinine Glucose POC Glucose 145 H Calcium Phosphorus Magnesium AST C-Reactive Protein Total Protein Albumin Lipase Vitamin B12 TSH Urine WBC (Auto) 7.0 H Urine Chloride Urine Total Protein Crossmatch 10/15/16 10/15/16 10/15/16 12:04 13:59 15:24 WBC RBC Hgb Hct MCV RDW Plt Count Lymph % (Auto) [place] % (Auto) [place] # Seg Neutrophils % Seg Neuts % (Manual) Lymphocytes % (Manual) Monocytes % (Manual) Seg Neutrophils # Seg Neutrophils # Man Lymphocytes # (Manual) Monocytes # (Manual) Eosinophils # (Manual) Basophils # (Manual) PT INR APTT Heparin Anti-Xa Level POC ABG pH POC ABG pCO2 POC ABG pO2 Sodium Potassium Chloride Carbon Dioxide BUN Creatinine Glucose POC Glucose 123 H 147 H 153 H Calcium Phosphorus Magnesium AST C-Reactive Protein Total Protein Albumin Lipase Vitamin B12 TSH Urine WBC (Auto) Urine Chloride Urine Total Protein Crossmatch 0210/15/16 10/15/16 16:30 17:34 18:30 WBC RBC Hgb Hct MCV RDW Plt Count Lymph % (Auto) [place] % (Auto) [place] # Seg Neutrophils % Seg Neuts % (Manual) Lymphocytes % (Manual) Monocytes % (Manual) Seg Neutrophils # Seg Neutrophils # Man Lymphocytes # (Manual) Monocytes # (Manual) Eosinophils # (Manual) Basophils # (Manual) PT INR APTT Heparin Anti-Xa Level POC ABG pH POC ABG pCO2 POC ABG pO2 Sodium Potassium Chloride Carbon Dioxide BUN Creatinine Glucose POC Glucose 223 H 236 H 164 H Calcium Phosphorus Magnesium AST C-Reactive Protein Total Protein Albumin Lipase Vitamin B12 TSH Urine WBC (Auto) Urine Chloride Urine Total Protein Crossmatch 10/15/16 10/15/16 10/15/16 19:14 20:31 21:23 WBC RBC Hgb Hct MCV RDW Plt Count Lymph % (Auto) [place] % (Auto) [place] # Seg Neutrophils % Seg Neuts % (Manual) Lymphocytes % (Manual) Monocytes % (Manual) Seg Neutrophils # Seg Neutrophils # Man Lymphocytes # (Manual) Monocytes # (Manual) Eosinophils # (Manual) Basophils # (Manual) PT INR APTT Heparin Anti-Xa Level POC ABG pH POC ABG pCO2 POC ABG pO2 Sodium Potassium Chloride Carbon Dioxide BUN Creatinine Glucose POC Glucose 138 H 158 H 158 H Calcium Phosphorus Magnesium AST C-Reactive Protein Total Protein Albumin Lipase Vitamin B12 TSH Urine WBC (Auto) Urine Chloride Urine Total Protein Crossmatch 10/15/16 10/15/16 10/16/16 22:04 22:57 00:11 WBC RBC Hgb Hct MCV RDW Plt Count Lymph % (Auto) [place] % (Auto) [place] # Seg Neutrophils % Seg Neuts % (Manual) Lymphocytes % (Manual) Monocytes % (Manual) Seg Neutrophils # Seg Neutrophils # Man Lymphocytes # (Manual) Monocytes # (Manual) Eosinophils # (Manual) Basophils # (Manual) PT INR APTT Heparin Anti-Xa Level POC ABG pH POC ABG pCO2 POC ABG pO2 Sodium Potassium Chloride Carbon Dioxide BUN Creatinine Glucose POC Glucose 168 H 213 H 166 H Calcium Phosphorus Magnesium AST C-Reactive Protein Total Protein Albumin Lipase Vitamin B12 TSH Urine WBC (Auto) Urine Chloride Urine Total Protein Crossmatch 10/16/16 10/16/16 10/16/16 01:16 02:32 03:38 WBC RBC Hgb Hct MCV RDW Plt Count Lymph % (Auto) [place] % (Auto) [place] # Seg Neutrophils % Seg Neuts % (Manual) Lymphocytes % (Manual) Monocytes % (Manual) Seg Neutrophils # Seg Neutrophils # Man Lymphocytes # (Manual) Monocytes # (Manual) Eosinophils # (Manual) Basophils # (Manual) PT INR APTT Heparin Anti-Xa Level POC ABG pH POC ABG pCO2 POC ABG pO2 Sodium Potassium Chloride Carbon Dioxide BUN Creatinine Glucose POC Glucose 171 H 164 H 147 H Calcium Phosphorus Magnesium AST C-Reactive Protein Total Protein Albumin Lipase Vitamin B12 TSH Urine WBC (Auto) Urine Chloride Urine Total Protein Crossmatch 10/16/16 10/16/16 10/16/16 04:14 04:14 04:49 WBC RBC Hgb Hct MCV RDW Plt Count Lymph % (Auto) [place] % (Auto) [place] # Seg Neutrophils % Seg Neuts % (Manual) Lymphocytes % (Manual) Monocytes % (Manual) Seg Neutrophils # Seg Neutrophils # Man Lymphocytes # (Manual) Monocytes # (Manual) Eosinophils # (Manual) Basophils # (Manual) PT INR APTT Heparin Anti-Xa Level POC ABG pH POC ABG pCO2 POC ABG pO2 Sodium 147 H Potassium Chloride 110.9 H Carbon Dioxide 19 L BUN Creatinine Glucose 139 H POC Glucose 144 H Calcium 7.3 L Phosphorus 2.3 L Magnesium AST C-Reactive Protein Total Protein Albumin Lipase 143 H Vitamin B12 TSH Urine WBC (Auto) Urine Chloride Urine Total Protein Crossmatch 10/16/16 10/16/16 10/16/16 05:03 05:41 05:58 WBC 16.5 H RBC 3.36 L Hgb Hct MCV 98 H RDW 13.1 L Plt Count Lymph % (Auto) 8.5 L [place] % (Auto) 7.6 H [place] # 1.3 H Seg Neutrophils % 83.3 H Seg Neuts % (Manual) Lymphocytes % (Manual) Monocytes % (Manual) Seg Neutrophils # 13.8 H Seg Neutrophils # Man Lymphocytes # (Manual) Monocytes # (Manual) Eosinophils # (Manual) Basophils # (Manual) PT INR APTT Heparin Anti-Xa Level POC ABG pH POC ABG pCO2 30.7 L POC ABG pO2 128 H Sodium Potassium Chloride Carbon Dioxide BUN Creatinine Glucose POC Glucose 131 H Calcium Phosphorus Magnesium AST C-Reactive Protein Total Protein Albumin Lipase Vitamin B12 TSH Urine WBC (Auto) Urine Chloride Urine Total Protein Crossmatch 0210/16/16 10/16/16 06:32 09:27 09:35 WBC RBC Hgb Hct MCV RDW Plt Count Lymph % (Auto) [place] % (Auto) [place] # Seg Neutrophils % Seg Neuts % (Manual) Lymphocytes % (Manual) Monocytes % (Manual) Seg Neutrophils # Seg Neutrophils # Man Lymphocytes # (Manual) Monocytes # (Manual) Eosinophils # (Manual) Basophils # (Manual) PT INR APTT Heparin Anti-Xa Level POC ABG pH POC ABG pCO2 32.8 L POC ABG pO2 137 H Sodium Potassium Chloride Carbon Dioxide BUN Creatinine Glucose POC Glucose 121 H 150 H Calcium Phosphorus Magnesium AST C-Reactive Protein Total Protein Albumin Lipase Vitamin B12 TSH Urine WBC (Auto) Urine Chloride Urine Total Protein Crossmatch 10/16/16 10/16/16 10/16/16 10:47 13:27 14:24 WBC RBC Hgb Hct MCV RDW Plt Count Lymph % (Auto) [place] % (Auto) [place] # Seg Neutrophils % Seg Neuts % (Manual) Lymphocytes % (Manual) Monocytes % (Manual) Seg Neutrophils # Seg Neutrophils # Man Lymphocytes # (Manual) Monocytes # (Manual) Eosinophils # (Manual) Basophils # (Manual) PT INR APTT Heparin Anti-Xa Level POC ABG pH POC ABG pCO2 POC ABG pO2 Sodium Potassium Chloride Carbon Dioxide BUN Creatinine Glucose POC Glucose 184 H 171 H 174 H Calcium Phosphorus Magnesium AST C-Reactive Protein Total Protein Albumin Lipase Vitamin B12 TSH Urine WBC (Auto) Urine Chloride Urine Total Protein Crossmatch 10/16/16 10/16/16 10/16/16 15:48 16:26 18:17 WBC RBC Hgb Hct MCV RDW Plt Count Lymph % (Auto) [place] % (Auto) [place] # Seg Neutrophils % Seg Neuts % (Manual) Lymphocytes % (Manual) Monocytes % (Manual) Seg Neutrophils # Seg Neutrophils # Man Lymphocytes # (Manual) Monocytes # (Manual) Eosinophils # (Manual) Basophils # (Manual) PT INR APTT Heparin Anti-Xa Level POC ABG pH POC ABG pCO2 POC ABG pO2 Sodium Potassium Chloride Carbon Dioxide BUN Creatinine Glucose POC Glucose 205 H 204 H 234 H Calcium Phosphorus Magnesium AST C-Reactive Protein Total Protein Albumin Lipase Vitamin B12 TSH Urine WBC (Auto) Urine Chloride Urine Total Protein Crossmatch 10/16/16 10/16/16 10/16/16 19:40 20:33 21:36 WBC RBC Hgb Hct MCV RDW Plt Count Lymph % (Auto) [place]ar % (Auto) Lamar # Seg Neutrophils % Seg Neuts % (Manual) Lymphocytes % (Manual) Monocytes % (Manual) Seg Neutrophils # Seg Neutrophils # Man Lymphocytes # (Manual) Monocytes # (Manual) Eosinophils # (Manual) Basophils # (Manual) PT INR APTT Heparin Anti-Xa Level POC ABG pH POC ABG pCO2 POC ABG pO2 Sodium Potassium Chloride Carbon Dioxide BUN Creatinine Glucose POC Glucose 167 H 153 H 158 H Calcium Phosphorus Magnesium AST C-Reactive Protein Total Protein Albumin Lipase Vitamin B12 TSH Urine WBC (Auto) Urine Chloride Urine Total Protein Crossmatch 10/16/16 10/16/16 10/17/16 22:54 23:48 00:47 WBC RBC Hgb Hct MCV RDW Plt Count Lymph % (Auto) [place] % (Auto) [place] # Seg Neutrophils % Seg Neuts % (Manual) Lymphocytes % (Manual) Monocytes % (Manual) Seg Neutrophils # Seg Neutrophils # Man Lymphocytes # (Manual) Monocytes # (Manual) Eosinophils # (Manual) Basophils # (Manual) PT INR APTT Heparin Anti-Xa Level POC ABG pH POC ABG pCO2 POC ABG pO2 Sodium Potassium Chloride Carbon Dioxide BUN Creatinine Glucose POC Glucose 180 H 207 H 196 H Calcium Phosphorus Magnesium AST C-Reactive Protein Total Protein Albumin Lipase Vitamin B12 TSH Urine WBC (Auto) Urine Chloride Urine Total Protein Crossmatch 10/17/16 10/17/16 10/17/16 01:57 02:49 03:50 WBC RBC Hgb Hct MCV RDW Plt Count Lymph % (Auto) [place] % (Auto) [place] # Seg Neutrophils % Seg Neuts % (Manual) Lymphocytes % (Manual) Monocytes % (Manual) Seg Neutrophils # Seg Neutrophils # Man Lymphocytes # (Manual) Monocytes # (Manual) Eosinophils # (Manual) Basophils # (Manual) PT INR APTT Heparin Anti-Xa Level POC ABG pH POC ABG pCO2 POC ABG pO2 Sodium Potassium Chloride Carbon Dioxide BUN Creatinine Glucose POC Glucose 180 H 151 H 106 H Calcium Phosphorus Magnesium AST C-Reactive Protein Total Protein Albumin Lipase Vitamin B12 TSH Urine WBC (Auto) Urine Chloride Urine Total Protein Crossmatch 10/17/16 10/17/16 10/17/16 04:59 06:03 06:35 WBC RBC Hgb Hct MCV RDW Plt Count Lymph % (Auto) [place] % (Auto) [place] # Seg Neutrophils % Seg Neuts % (Manual) Lymphocytes % (Manual) Monocytes % (Manual) Seg Neutrophils # Seg Neutrophils # Man Lymphocytes # (Manual) Monocytes # (Manual) Eosinophils # (Manual) Basophils # (Manual) PT INR APTT Heparin Anti-Xa Level POC ABG pH 7.453 H POC ABG pCO2 30.1 L POC ABG pO2 111 H Sodium Potassium Chloride Carbon Dioxide BUN Creatinine Glucose POC Glucose 145 H 157 H Calcium Phosphorus Magnesium AST C-Reactive Protein Total Protein Albumin Lipase Vitamin B12 TSH Urine WBC (Auto) Urine Chloride Urine Total Protein Crossmatch 10/17/16 10/17/16 10/17/16 07:08 07:11 08:01 WBC RBC Hgb Hct MCV RDW Plt Count Lymph % (Auto) [place] % (Auto) [place] # Seg Neutrophils % Seg Neuts % (Manual) Lymphocytes % (Manual) Monocytes % (Manual) Seg Neutrophils # Seg Neutrophils # Man Lymphocytes # (Manual) Monocytes # (Manual) Eosinophils # (Manual) Basophils # (Manual) PT INR APTT Heparin Anti-Xa Level POC ABG pH POC ABG pCO2 POC ABG pO2 Sodium 147 H Potassium Chloride 113.8 H Carbon Dioxide 19 L BUN Creatinine Glucose 136 H POC Glucose 136 H 152 H Calcium 7.7 L Phosphorus Magnesium AST C-Reactive Protein Total Protein Albumin Lipase Vitamin B12 TSH Urine WBC (Auto) Urine Chloride Urine Total Protein Crossmatch 10/17/16 10/17/16 10/17/16 08:23 09:17 09:53 WBC 18.1 H RBC 3.01 L Hgb 9.7 L Hct 29.4 L MCV 98 H RDW Plt Count 116 L Lymph % (Auto) [place] % (Auto) [place] # Seg Neutrophils % Seg Neuts % (Manual) 77.0 H Lymphocytes % (Manual) 4.0 L Monocytes % (Manual) 12.0 H Seg Neutrophils # Seg Neutrophils # Man 13.9 H Lymphocytes # (Manual) 0.7 L Monocytes # (Manual) 2.2 H Eosinophils # (Manual) Basophils # (Manual) PT INR APTT Heparin Anti-Xa Level POC ABG pH POC ABG pCO2 POC ABG pO2 Sodium Potassium Chloride Carbon Dioxide BUN Creatinine Glucose POC Glucose 148 H 137 H Calcium Phosphorus Magnesium AST C-Reactive Protein Total Protein Albumin Lipase Vitamin B12 TSH Urine WBC (Auto) Urine Chloride Urine Total Protein Crossmatch 10/17/16 10/17/16 10/17/16 11:43 16:07 17:42 WBC RBC Hgb Hct MCV RDW Plt Count Lymph % (Auto) [place] % (Auto) [place] # Seg Neutrophils % Seg Neuts % (Manual) Lymphocytes % (Manual) Monocytes % (Manual) Seg Neutrophils # Seg Neutrophils # Man Lymphocytes # (Manual) Monocytes # (Manual) Eosinophils # (Manual) Basophils # (Manual) PT 16.4 H INR 1.33 H APTT 38.8 H Heparin Anti-Xa Level POC ABG pH POC ABG pCO2 POC ABG pO2 Sodium Potassium Chloride Carbon Dioxide BUN Creatinine Glucose POC Glucose 179 H 153 H Calcium Phosphorus Magnesium AST C-Reactive Protein Total Protein Albumin Lipase Vitamin B12 TSH Urine WBC (Auto) Urine Chloride Urine Total Protein Crossmatch 10/17/16 10/18/16 10/18/16 22:54 04:37 05:39 WBC RBC Hgb Hct MCV RDW Plt Count Lymph % (Auto) [place] % (Auto) [place] # Seg Neutrophils % Seg Neuts % (Manual) Lymphocytes % (Manual) Monocytes % (Manual) Seg Neutrophils # Seg Neutrophils # Man Lymphocytes # (Manual) Monocytes # (Manual) Eosinophils # (Manual) Basophils # (Manual) PT INR APTT Heparin Anti-Xa Level 0.27 L POC ABG pH 7.454 H POC ABG pCO2 30.8 L POC ABG pO2 115 H Sodium Potassium Chloride Carbon Dioxide BUN Creatinine Glucose POC Glucose 69 L Calcium Phosphorus Magnesium AST C-Reactive Protein Total Protein Albumin Lipase Vitamin B12 TSH Urine WBC (Auto) Urine Chloride Urine Total Protein Crossmatch 10/18/16 10/18/16 10/18/16 06:46 06:46 06:46 WBC 20.5 H RBC 2.62 L Hgb 8.4 L Hct 26.0 L MCV 100 H RDW Plt Count Lymph % (Auto) [place] % (Auto) [place] # Seg Neutrophils % Seg Neuts % (Manual) 75.0 H Lymphocytes % (Manual) 9.0 L Monocytes % (Manual) 14.0 H Seg Neutrophils # Seg Neutrophils # Man 15.4 H Lymphocytes # (Manual) Monocytes # (Manual) 2.9 H Eosinophils # (Manual) Basophils # (Manual) PT INR APTT Heparin Anti-Xa Level POC ABG pH POC ABG pCO2 POC ABG pO2 Sodium Potassium Chloride 110.6 H Carbon Dioxide BUN Creatinine 1.3 H Glucose 153 H POC Glucose Calcium 8.0 L Phosphorus Magnesium 1.6 L AST C-Reactive Protein Total Protein Albumin Lipase Vitamin B12 TSH Urine WBC (Auto) Urine Chloride Urine Total Protein Crossmatch 10/18/16 10/18/16 10/18/16 07:30 11:37 17:51 WBC RBC Hgb Hct MCV RDW Plt Count Lymph % (Auto) [place] % (Auto) [place] # Seg Neutrophils % Seg Neuts % (Manual) Lymphocytes % (Manual) Monocytes % (Manual) Seg Neutrophils # Seg Neutrophils # Man Lymphocytes # (Manual) Monocytes # (Manual) Eosinophils # (Manual) Basophils # (Manual) PT INR APTT Heparin Anti-Xa Level POC ABG pH POC ABG pCO2 POC ABG pO2 Sodium Potassium Chloride Carbon Dioxide BUN Creatinine Glucose POC Glucose 162 H 156 H 164 H Calcium Phosphorus Magnesium AST C-Reactive Protein Total Protein Albumin Lipase Vitamin B12 TSH Urine WBC (Auto) Urine Chloride Urine Total Protein Crossmatch 10/18/16 10/19/16 10/19/16 23:44 03:59 05:13 WBC 18.2 H RBC 2.76 L Hgb 9.0 L Hct 27.7 L MCV 100 H RDW Plt Count Lymph % (Auto) [place] % (Auto) [place] # Seg Neutrophils % Seg Neuts % (Manual) 76.0 H Lymphocytes % (Manual) 10.0 L Monocytes % (Manual) Seg Neutrophils # Seg Neutrophils # Man 13.8 H Lymphocytes # (Manual) Monocytes # (Manual) Eosinophils # (Manual) Basophils # (Manual) PT INR APTT Heparin Anti-Xa Level POC ABG pH POC ABG pCO2 32.2 L POC ABG pO2 128 H Sodium Potassium Chloride Carbon Dioxide BUN Creatinine Glucose POC Glucose 278 H Calcium Phosphorus Magnesium AST C-Reactive Protein Total Protein Albumin Lipase Vitamin B12 TSH Urine WBC (Auto) Urine Chloride Urine Total Protein Crossmatch 10/19/16 10/19/16 10/19/16 06:01 06:30 12:20 WBC RBC Hgb Hct MCV RDW Plt Count Lymph % (Auto) [place] % (Auto) [place] # Seg Neutrophils % Seg Neuts % (Manual) Lymphocytes % (Manual) Monocytes % (Manual) Seg Neutrophils # Seg Neutrophils # Man Lymphocytes # (Manual) Monocytes # (Manual) Eosinophils # (Manual) Basophils # (Manual) PT INR APTT Heparin Anti-Xa Level POC ABG pH POC ABG pCO2 POC ABG pO2 Sodium Potassium Chloride Carbon Dioxide 18 L BUN Creatinine 1.3 H Glucose 262 H POC Glucose 261 H 349 H Calcium 7.7 L Phosphorus 4.8 H D Magnesium AST C-Reactive Protein Total Protein Albumin Lipase Vitamin B12 TSH Urine WBC (Auto) Urine Chloride Urine Total Protein Crossmatch 10/19/16 10/20/16 10/20/16 16:48 00:17 05:20 WBC 22.5 H RBC 2.80 L Hgb 8.9 L Hct 28.3 L MCV 101 H RDW Plt Count Lymph % (Auto) [place] % (Auto) [place] # Seg Neutrophils % Seg Neuts % (Manual) Lymphocytes % (Manual) 10.0 L Monocytes % (Manual) Seg Neutrophils # Seg Neutrophils # Man 13.3 H Lymphocytes # (Manual) Monocytes # (Manual) 1.1 H Eosinophils # (Manual) 0.7 H Basophils # (Manual) PT INR APTT Heparin Anti-Xa Level POC ABG pH POC ABG pCO2 POC ABG pO2 Sodium Potassium Chloride Carbon Dioxide BUN Creatinine Glucose POC Glucose 248 H 346 H Calcium Phosphorus Magnesium AST C-Reactive Protein Total Protein Albumin Lipase Vitamin B12 TSH Urine WBC (Auto) Urine Chloride Urine Total Protein Crossmatch 10/20/16 10/20/16 10/20/16 05:20 05:20 06:05 WBC RBC Hgb Hct MCV RDW Plt Count Lymph % (Auto) [place] % (Auto) [place] # Seg Neutrophils % Seg Neuts % (Manual) Lymphocytes % (Manual) Monocytes % (Manual) Seg Neutrophils # Seg Neutrophils # Man Lymphocytes # (Manual) Monocytes # (Manual) Eosinophils # (Manual) Basophils # (Manual) PT INR APTT Heparin Anti-Xa Level 0.20 L POC ABG pH POC ABG pCO2 POC ABG pO2 Sodium Potassium Chloride Carbon Dioxide BUN 20 H Creatinine Glucose 374 H POC Glucose 337 H Calcium 8.3 L Phosphorus Magnesium AST C-Reactive Protein Total Protein Albumin Lipase Vitamin B12 TSH Urine WBC (Auto) Urine Chloride Urine Total Protein Crossmatch 10/20/16 10/20/16 10/20/16 11:49 13:59 17:56 WBC RBC Hgb Hct MCV RDW Plt Count Lymph % (Auto) [place] % (Auto) [place] # Seg Neutrophils % Seg Neuts % (Manual) Lymphocytes % (Manual) Monocytes % (Manual) Seg Neutrophils # Seg Neutrophils # Man Lymphocytes # (Manual) Monocytes # (Manual) Eosinophils # (Manual) Basophils # (Manual) PT INR APTT Heparin Anti-Xa Level 2.00 H POC ABG pH POC ABG pCO2 POC ABG pO2 Sodium Potassium Chloride Carbon Dioxide BUN Creatinine Glucose POC Glucose 305 H 362 H Calcium Phosphorus Magnesium AST C-Reactive Protein Total Protein Albumin Lipase Vitamin B12 TSH Urine WBC (Auto) Urine Chloride Urine Total Protein Crossmatch 10/20/16 10/21/16 10/21/16 23:52 05:00 05:49 WBC 22.9 H RBC 2.49 L Hgb 7.7 L Hct 25.6 L MCV 103 H RDW Plt Count Lymph % (Auto) [place] % (Auto) [place] # Seg Neutrophils % Seg Neuts % (Manual) 94.0 H Lymphocytes % (Manual) 1.0 L Monocytes % (Manual) Seg Neutrophils # Seg Neutrophils # Man 21.5 H Lymphocytes # (Manual) 0.2 L Monocytes # (Manual) 1.1 H Eosinophils # (Manual) Basophils # (Manual) PT INR APTT Heparin Anti-Xa Level POC ABG pH POC ABG pCO2 POC ABG pO2 Sodium Potassium Chloride Carbon Dioxide BUN Creatinine Glucose POC Glucose 252 H 180 H Calcium Phosphorus Magnesium AST C-Reactive Protein Total Protein Albumin Lipase Vitamin B12 TSH Urine WBC (Auto) Urine Chloride Urine Total Protein Crossmatch 10/21/16 10/21/16 10/21/16 11:47 11:49 14:10 WBC RBC Hgb Hct MCV RDW Plt Count Lymph % (Auto) [place] % (Auto) [place] # Seg Neutrophils % Seg Neuts % (Manual) Lymphocytes % (Manual) Monocytes % (Manual) Seg Neutrophils # Seg Neutrophils # Man Lymphocytes # (Manual) Monocytes # (Manual) Eosinophils # (Manual) Basophils # (Manual) PT INR APTT Heparin Anti-Xa Level POC ABG pH POC ABG pCO2 POC ABG pO2 Sodium Potassium Chloride Carbon Dioxide BUN Creatinine Glucose POC Glucose 50 L 56 L 140 H Calcium Phosphorus Magnesium AST C-Reactive Protein Total Protein Albumin Lipase Vitamin B12 TSH Urine WBC (Auto) Urine Chloride Urine Total Protein Crossmatch 10/21/16 10/21/16 10/22/16 18:24 Unknown 00:07 WBC RBC Hgb Hct MCV RDW Plt Count Lymph % (Auto) [place] % (Auto) [place] # Seg Neutrophils % Seg Neuts % (Manual) Lymphocytes % (Manual) Monocytes % (Manual) Seg Neutrophils # Seg Neutrophils # Man Lymphocytes # (Manual) Monocytes # (Manual) Eosinophils # (Manual) Basophils # (Manual) PT INR APTT Heparin Anti-Xa Level POC ABG pH POC ABG pCO2 POC ABG pO2 Sodium 150 H Potassium 3.1 L Chloride 112.4 H Carbon Dioxide BUN 25 H Creatinine 1.4 H Glucose POC Glucose 175 H 218 H Calcium 8.0 L Phosphorus Magnesium AST C-Reactive Protein Total Protein Albumin Lipase Vitamin B12 TSH Urine WBC (Auto) Urine Chloride Urine Total Protein Crossmatch 10/22/16 10/22/16 10/22/16 04:20 04:20 10:25 WBC 20.8 H RBC 2.37 L Hgb 7.5 L Hct 23.9 L MCV 101 H RDW Plt Count Lymph % (Auto) [place] % (Auto) [place] # Seg Neutrophils % Seg Neuts % (Manual) 89.0 H Lymphocytes % (Manual) 7.0 L Monocytes % (Manual) Seg Neutrophils # Seg Neutrophils # Man 18.5 H Lymphocytes # (Manual) Monocytes # (Manual) Eosinophils # (Manual) Basophils # (Manual) 0.2 H PT INR APTT Heparin Anti-Xa Level POC ABG pH POC ABG pCO2 POC ABG pO2 Sodium 148 H Potassium 2.9 L* Chloride 109.4 H Carbon Dioxide BUN 26 H Creatinine Glucose 140 H POC Glucose Calcium 7.5 L Phosphorus Magnesium AST C-Reactive Protein Total Protein Albumin Lipase Vitamin B12 976.8 H TSH Urine WBC (Auto) Urine Chloride Urine Total Protein Crossmatch 10/22/16 10/22/16 10/22/16 10:25 14:50 18:16 WBC RBC Hgb Hct MCV RDW Plt Count Lymph % (Auto) [place] % (Auto) [place] # Seg Neutrophils % Seg Neuts % (Manual) Lymphocytes % (Manual) Monocytes % (Manual) Seg Neutrophils # Seg Neutrophils # Man Lymphocytes # (Manual) Monocytes # (Manual) Eosinophils # (Manual) Basophils # (Manual) PT INR APTT Heparin Anti-Xa Level POC ABG pH POC ABG pCO2 POC ABG pO2 Sodium Potassium Chloride Carbon Dioxide BUN Creatinine Glucose POC Glucose 193 H Calcium Phosphorus Magnesium AST C-Reactive Protein Total Protein Albumin Lipase Vitamin B12 TSH 0.143 L 0.162 L Urine WBC (Auto) Urine Chloride Urine Total Protein Crossmatch 10/22/16 10/22/16 10/22/16 20:00 20:00 20:00 WBC 24.1 H RBC 2.58 L Hgb 8.2 L Hct 26.4 L MCV 102 H RDW Plt Count Lymph % (Auto) [place] % (Auto) [place] # Seg Neutrophils % Seg Neuts % (Manual) 74.0 H Lymphocytes % (Manual) 7.0 L Monocytes % (Manual) Seg Neutrophils # Seg Neutrophils # Man 17.8 H Lymphocytes # (Manual) Monocytes # (Manual) Eosinophils # (Manual) Basophils # (Manual) PT INR APTT Heparin Anti-Xa Level 1.92 H POC ABG pH POC ABG pCO2 POC ABG pO2 Sodium Potassium Chloride Carbon Dioxide BUN Creatinine Glucose POC Glucose Calcium Phosphorus Magnesium AST C-Reactive Protein Total Protein Albumin Lipase Vitamin B12 TSH Urine WBC (Auto) Urine Chloride Urine Total Protein Crossmatch See Detail 10/23/16 10/23/16 10/23/16 00:21 06:09 12:07 WBC RBC Hgb Hct MCV RDW Plt Count Lymph % (Auto) [place] % (Auto) [place] # Seg Neutrophils % Seg Neuts % (Manual) Lymphocytes % (Manual) Monocytes % (Manual) Seg Neutrophils # Seg Neutrophils # Man Lymphocytes # (Manual) Monocytes # (Manual) Eosinophils # (Manual) Basophils # (Manual) PT INR APTT Heparin Anti-Xa Level POC ABG pH POC ABG pCO2 POC ABG pO2 Sodium Potassium Chloride Carbon Dioxide BUN Creatinine Glucose POC Glucose 283 H 241 H 340 H Calcium Phosphorus Magnesium AST C-Reactive Protein Total Protein Albumin Lipase Vitamin B12 TSH Urine WBC (Auto) Urine Chloride Urine Total Protein Crossmatch 10/23/16 10/23/16 10/23/16 14:01 16:00 17:59 WBC RBC Hgb Hct MCV RDW Plt Count Lymph % (Auto) [place] % (Auto) [place] # Seg Neutrophils % Seg Neuts % (Manual) Lymphocytes % (Manual) Monocytes % (Manual) Seg Neutrophils # Seg Neutrophils # Man Lymphocytes # (Manual) Monocytes # (Manual) Eosinophils # (Manual) Basophils # (Manual) PT INR APTT Heparin Anti-Xa Level 0.19 L POC ABG pH POC ABG pCO2 32.4 L POC ABG pO2 Sodium Potassium Chloride Carbon Dioxide BUN Creatinine Glucose POC Glucose 245 H Calcium Phosphorus Magnesium AST C-Reactive Protein Total Protein Albumin Lipase Vitamin B12 TSH Urine WBC (Auto) Urine Chloride Urine Total Protein Crossmatch 10/23/16 10/23/16 10/23/16 22:55 Unknown Unknown WBC 22.6 H RBC 3.26 L Hgb Hct MCV RDW 17.1 H Plt Count Lymph % (Auto) [place] % (Auto) [place] # Seg Neutrophils % Seg Neuts % (Manual) Lymphocytes % (Manual) 11.0 L Monocytes % (Manual) Seg Neutrophils # Seg Neutrophils # Man 14.0 H Lymphocytes # (Manual) Monocytes # (Manual) Eosinophils # (Manual) Basophils # (Manual) PT INR APTT Heparin Anti-Xa Level 0.17 L 0.15 L POC ABG pH POC ABG pCO2 POC ABG pO2 Sodium Potassium Chloride Carbon Dioxide BUN Creatinine Glucose POC Glucose Calcium Phosphorus Magnesium AST C-Reactive Protein Total Protein Albumin Lipase Vitamin B12 TSH Urine WBC (Auto) Urine Chloride Urine Total Protein Crossmatch 10/23/16 10/24/16 10/24/16 Unknown 00:05 05:30 WBC RBC Hgb Hct MCV RDW Plt Count Lymph % (Auto) [place] % (Auto) [place] # Seg Neutrophils % Seg Neuts % (Manual) Lymphocytes % (Manual) Monocytes % (Manual) Seg Neutrophils # Seg Neutrophils # Man Lymphocytes # (Manual) Monocytes # (Manual) Eosinophils # (Manual) Basophils # (Manual) PT INR APTT Heparin Anti-Xa Level 0.13 L POC ABG pH POC ABG pCO2 POC ABG pO2 Sodium Potassium Chloride 111.2 H Carbon Dioxide 20 L BUN 25 H Creatinine Glucose 227 H POC Glucose 118 H Calcium 7.1 L Phosphorus Magnesium AST C-Reactive Protein Total Protein Albumin Lipase Vitamin B12 TSH Urine WBC (Auto) Urine Chloride Urine Total Protein Crossmatch 10/24/16 10/24/16 10/24/16 11:00 11:00 12:06 WBC 17.6 H RBC 2.92 L Hgb 9.2 L Hct 28.3 L MCV RDW 16.9 H Plt Count Lymph % (Auto) [place] % (Auto) [place] # Seg Neutrophils % Seg Neuts % (Manual) Lymphocytes % (Manual) Monocytes % (Manual) Seg Neutrophils # Seg Neutrophils # Man Lymphocytes # (Manual) Monocytes # (Manual) Eosinophils # (Manual) Basophils # (Manual) PT INR APTT Heparin Anti-Xa Level 0.27 L POC ABG pH POC ABG pCO2 POC ABG pO2 Sodium Potassium Chloride Carbon Dioxide BUN Creatinine Glucose POC Glucose 166 H Calcium Phosphorus Magnesium AST C-Reactive Protein Total Protein Albumin Lipase Vitamin B12 TSH Urine WBC (Auto) Urine Chloride Urine Total Protein Crossmatch 03/04/0410/25/16 10/25/16 12:27 00:49 03:30 WBC RBC Hgb 8.8 L Hct 28.1 L MCV RDW Plt Count Lymph % (Auto) [place] % (Auto) [place] # Seg Neutrophils % Seg Neuts % (Manual) Lymphocytes % (Manual) Monocytes % (Manual) Seg Neutrophils # Seg Neutrophils # Man Lymphocytes # (Manual) Monocytes # (Manual) Eosinophils # (Manual) Basophils # (Manual) PT INR APTT Heparin Anti-Xa Level POC ABG pH POC ABG pCO2 33.9 L POC ABG pO2 Sodium Potassium Chloride Carbon Dioxide BUN Creatinine Glucose POC Glucose 121 H Calcium Phosphorus Magnesium AST C-Reactive Protein Total Protein Albumin Lipase Vitamin B12 TSH Urine WBC (Auto) Urine Chloride Urine Total Protein Crossmatch 10/25/16 10/25/16 10/25/16 09:49 12:10 19:25 WBC 21.1 H RBC 3.02 L Hgb 9.3 L Hct 28.9 L MCV RDW 16.3 H Plt Count Lymph % (Auto) [place] % (Auto) [place] # Seg Neutrophils % Seg Neuts % (Manual) 81.0 H Lymphocytes % (Manual) 9.0 L Monocytes % (Manual) Seg Neutrophils # Seg Neutrophils # Man 17.1 H Lymphocytes # (Manual) Monocytes # (Manual) Eosinophils # (Manual) Basophils # (Manual) PT INR APTT Heparin Anti-Xa Level POC ABG pH POC ABG pCO2 POC ABG pO2 Sodium Potassium Chloride Carbon Dioxide BUN Creatinine Glucose POC Glucose 158 H 151 H Calcium Phosphorus Magnesium AST C-Reactive Protein Total Protein Albumin Lipase Vitamin B12 TSH Urine WBC (Auto) Urine Chloride Urine Total Protein Crossmatch 10/26/16 10/26/16 10/26/16 00:20 01:09 05:02 WBC 22.2 H RBC 2.89 L Hgb 8.7 L Hct 27.8 L MCV RDW 16.4 H Plt Count Lymph % (Auto) [place] % (Auto) [place] # Seg Neutrophils % Seg Neuts % (Manual) Lymphocytes % (Manual) Monocytes % (Manual) Seg Neutrophils # Seg Neutrophils # Man Lymphocytes # (Manual) Monocytes # (Manual) Eosinophils # (Manual) Basophils # (Manual) PT INR APTT Heparin Anti-Xa Level POC ABG pH POC ABG pCO2 POC ABG pO2 Sodium Potassium Chloride Carbon Dioxide BUN Creatinine Glucose POC Glucose 44 L 112 H Calcium Phosphorus Magnesium AST C-Reactive Protein Total Protein Albumin Lipase Vitamin B12 TSH Urine WBC (Auto) Urine Chloride Urine Total Protein Crossmatch 10/26/16 10/26/16 05:02 12:11 WBC RBC Hgb Hct MCV RDW Plt Count Lymph % (Auto) [place] % (Auto) [place] # Seg Neutrophils % Seg Neuts % (Manual) Lymphocytes % (Manual) Monocytes % (Manual) Seg Neutrophils # Seg Neutrophils # Man Lymphocytes # (Manual) Monocytes # (Manual) Eosinophils # (Manual) Basophils # (Manual) PT INR APTT Heparin Anti-Xa Level POC ABG pH POC ABG pCO2 32.0 L POC ABG pO2 33 L Sodium Potassium 3.2 L D Chloride Carbon Dioxide 20 L BUN 24 H Creatinine Glucose 104 H POC Glucose Calcium 7.7 L Phosphorus Magnesium AST C-Reactive Protein Total Protein Albumin Lipase Vitamin B12 TSH Urine WBC (Auto) Urine Chloride Urine Total Protein Crossmatch
[2016-10-26 15:37] LABS: ISTAT Base Excess -4; ISTAT HCO3 20.8; ISTAT PCO2 33.7 (35-45); ISTAT PH 7.398 (7.35-7.45); ISTAT PO2 99 (80-105); ISTAT SO2 98; ISTAT TCO2 22
--- NOTE | 2016-10-26 16:48 | Event Note ---
Date: 10/26/16 Pt awake on vent. C/o right lower ext discomfort. Her lower right leg does not appear viable. 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 This was discussed in great detail with the pt, and her family at the bedside. Continue medical optimization to lower [place]-operative risk associated to amputation. Will delay surgery until pt's condition is optimized.
[2016-10-26] MEDS ORDERED: MAGNESIUM SULFATE IV ONE (17:26)
--- NOTE | 2016-10-26 17:26 | Progress Note ---
Assessment and Plan Assessment and plan: 66-year-old woman who presented with lethargy and altered mental status she deteriorated and was intubated and in emergency room, she was managed for DKA and she also developed sepsis due to UTI and right lower extremity ischemia 1. Acute respiratory failure with hypercapnia Continue ventilator, failed weaning trial. will plan for Trach and Peg-this has been discussed with the family by the surgeon. I wants to think about it. 2. Diabetes DKA has now resolved, continue SubQ insulin 3. Sepsis- Leukocytosis continues to improving Suspected due to UTI, urine has only grown Paula, sputum cultures grew group B strep, continue broad-spectrum antibiotics, infectious disease input appreciated 4. 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 Family has been updated. We'll continue to attempt to see if below the knee can be done as salvaged. Vascular consult noted too ill for any surgical intervention, continue heparin drip 5. Hypokalemia replete IV-we'll also give magnesium to help improve this. 6. Toxic metabolic encephalopathy- improved. 7. LUCY- present on admissions. likely vasomotor 8. Tachycardia- continue BB will add cardizem, if no improvement will add cardiology consultation Given her multiple medical illnesses, her prognosis is quite poor No family at bedside today. Discussed with negative turner apprentice. Critical care time 32 minutes History Interval history: Patient seen and examined, she again continues to respond to questions yes and no but unfortunately is unable to be weaned from the vent. No further adverse events reported to me. Hospitalist Physical - Physical exam Narrative exam: VITAL SIGNS: Reviewed. GENERAL: The patient appeared well nourished and normally developed. Vital signs as documented. HEAD: No signs of head trauma. EYES: Pupils are equal. Extraocular motions intact. EARS: Hearing grossly intact. MOUTH: ETT NECK: No adenopathy, no JVD. CHEST: Chest with diminshed CARDIAC: Regular rate and rhythm. S1 and S2, without murmurs, gallops, or rubs. VASCULAR: trace Edema. Peripheral pulses not palpable at the right lower ext ABDOMEN: Soft, without detectable tenderness. No sign of distention. No rebound or guarding, and no masses palpated. Bowel Sounds normal. MUSCULOSKELETAL: Good range of motion of all major joints. Except right lower extremity. Extremities with cyanosis to right lower ext, right large toe. NEUROLOGIC EXAM: follows command. PSYCHIATRIC: unable to assess. SKIN: cold at the right lower ext from the knee down once - Constitutional Vitals: Temp Pulse Resp BP Pulse Ox 97.5 F L 94 H 24 96/54 100 10/26/16 16:00 10/26/16 16:00 10/26/16 16:00 10/26/16 16:00 10/26/16 16:00 General appearance: Present: no acute distress Results - Labs CBC & Chem 7: 10/26/16 05:02 10/26/16 05:02 Labs: Laboratory Last Values WBC 22.2 K/mm3 (4.5-11.0) H 10/26/16 05:02 RBC 2.89 M/mm3 (3.65-5.03) L 10/26/16 05:02 Hgb 8.7 gm/dl (10.1-14.3) L 10/26/16 05:02 Hct 27.8 % (30.3-42.9) L 10/26/16 05:02 MCV 96 fl (79-97) 10/26/16 05:02 MCH 30 pg (28-32) 10/26/16 05:02 MCHC 32 % (30-34) 10/26/16 05:02 RDW 16.4 % (13.2-15.2) H 10/26/16 05:02 Plt Count 430 K/mm3 (140-440) 10/26/16 05:02 Lymph % (Auto) Subscription Clerk 10/21/16 05:00 Bond % (Auto) Subscription Clerk 10/21/16 05:00 Eos % (Auto) Subscription Clerk 10/21/16 05:00 Baso % (Auto) Subscription Clerk 10/21/16 05:00 Lymph # Subscription Clerk 10/21/16 05:00 Bond # Subscription Clerk 10/21/16 05:00 Eos # Subscription Clerk 10/21/16 05:00 Baso # Subscription Clerk 10/21/16 05:00 Add Manual Diff Complete 10/25/16 19:25 Total Counted 100 10/25/16 19:25 Seg Neutrophils % Subscription Clerk 10/21/16 05:00 Seg Neuts % (Manual) 81.0 % (40.0-70.0) H 10/25/16 19:25 Band Neutrophils % 5.0 % 10/25/16 19:25 Lymphocytes % (Manual) 9.0 % (13.4-35.0) L 10/25/16 19:25 Reactive Lymphs % (Man) 0 % 10/25/16 19:25 Monocytes % (Manual) 3.0 % (0.0-7.3) 10/25/16 19:25 Eosinophils % (Manual) 0 % (0.0-4.3) 10/25/16 19:25 Basophils % (Manual) 0 % (0.0-1.8) 10/25/16 19:25 Metamyelocytes % 2.0 % 10/25/16 19:25 Myelocytes % 0 % 10/25/16 19:25 Promyelocytes % 0 % 10/25/16 19:25 Blast Cells % 0 % 10/25/16 19:25 Nucleated RBC % Not Reportable 10/25/16 19:25 Seg Neutrophils # Subscription Clerk 10/21/16 05:00 Seg Neutrophils # Man 17.1 K/mm3 (1.8-7.7) H 10/25/16 19:25 Band Neutrophils # 1.1 K/mm3 10/25/16 19:25 Lymphocytes # (Manual) 1.9 K/mm3 (1.2-5.4) 10/25/16 19:25 Abs React Lymphs (Man) 0.0 K/mm3 10/25/16 19:25 Monocytes # (Manual) 0.6 K/mm3 (0.0-0.8) 10/25/16 19:25 Eosinophils # (Manual) 0.0 K/mm3 (0.0-0.4) 10/25/16 19:25 Basophils # (Manual) 0.0 K/mm3 (0.0-0.1) 10/25/16 19:25 Metamyelocytes # 0.4 K/mm3 10/25/16 19:25 Myelocytes # 0.0 K/mm3 10/25/16 19:25 Promyelocytes # 0.0 K/mm3 10/25/16 19:25 Blast Cells # 0.0 K/mm3 10/25/16 19:25 WBC Morphology Not Reportable 10/25/16 19:25 Hypersegmented Neuts Not Reportable 10/25/16 19:25 Hyposegmented Neuts Not Reportable 10/25/16 19:25 Hypogranular Neuts Not Reportable 10/25/16 19:25 Hypersegmented Polys TNR 10/17/16 07:08 Smudge Cells Not Reportable 10/25/16 19:25 Toxic Granulation Not Reportable 10/25/16 19:25 Toxic Vacuolation Not Reportable 10/25/16 19:25 Dohle Bodies Not Reportable 10/25/16 19:25 Pelger-Huet Anomaly Not Reportable 10/25/16 19:25 Alka Rods Not Reportable 10/25/16 19:25 Platelet Estimate Consistent w auto 10/25/16 19:25 Clumped Platelets Not Reportable 10/25/16 19:25 Plt Clumps, EDTA Not Reportable 10/25/16 19:25 Large Platelets 1+ 10/25/16 19:25 Giant Platelets Not Reportable 10/25/16 19:25 Platelet Satelliting Not Reportable 10/25/16 19:25 Plt Morphology Comment Not Reportable 10/25/16 19:25 RBC Morphology Not Reportable 10/25/16 19:25 Dimorphic RBCs Not Reportable 10/25/16 19:25 Polychromasia Not Reportable 10/25/16 19:25 Hypochromasia 1+ 10/25/16 19:25 Poikilocytosis 1+ 10/25/16 19:25 Basophilic Stippling TNR 10/17/16 07:08 Anisocytosis 1+ 10/25/16 19:25 Microcytosis Not Reportable 10/25/16 19:25 Macrocytosis Not Reportable 10/25/16 19:25 Spherocytes Not Reportable 10/25/16 19:25 Pappenheimer Bodies Not Reportable 10/25/16 19:25 Sickle Cells Not Reportable 10/25/16 19:25 Target Cells Not Reportable 10/25/16 19:25 Tear Drop Cells Not Reportable 10/25/16 19:25 Ovalocytes Not Reportable 10/25/16 19:25 Stomatocytes Rare 10/22/16 04:20 Helmet Cells Not Reportable 10/25/16 19:25 Higgins-Duchesne Bodies Not Reportable 10/25/16 19:25 [place] Rings Not Reportable 10/25/16 19:25 Jeannette Cells Not Reportable 10/25/16 19:25 Bite Cells Not Reportable 10/25/16 19:25 Crenated Cell Not Reportable 10/25/16 19:25 Elliptocytes Not Reportable 10/25/16 19:25 Acanthocytes (Spur) Not Reportable 10/25/16 19:25 Rouleaux Not Reportable 10/25/16 19:25 Hemoglobin C Crystals Not Reportable 10/25/16 19:25 Schistocytes Not Reportable 10/25/16 19:25 Malaria parasites Not Reportable 10/25/16 19:25 David Bodies Not Reportable 10/25/16 19:25 Hem Pathologist Commnt No 10/25/16 19:25 PT 16.4 Sec. (12.2-14.9) H 10/17/16 16:07 INR 1.33 (0.87-1.13) H 10/17/16 16:07 APTT 38.8 Sec. (24.2-36.6) H 10/17/16 16:07 Heparin Anti-Xa Level 0.48 U.I./ml (0.3-0.7) 10/26/16 05:02 POC ABG pH 7.398 (7.35-7.45) 10/26/16 15:28 POC ABG pCO2 33.7 (35-45) L 10/26/16 15:28 POC ABG pO2 99 (80-105) 10/26/16 15:28 POC ABG HCO3 20.8 10/26/16 15:28 POC ABG Total CO2 22 10/26/16 15:28 POC ABG O2 Sat 98 10/26/16 15:28 POC ABG Base Excess -4 10/26/16 15:28 VBG pH 7.020 (7.320-7.420) L* 10/13/16 04:22 FiO2 25 % 10/26/16 15:28 Sodium 139 mmol/L (137-145) 10/26/16 05:02 Potassium 3.2 mmol/L (3.6-5.0) L D 10/26/16 05:02 Chloride 103.2 mmol/L (98-107) 10/26/16 05:02 Carbon Dioxide 20 mmol/L (22-30) L 10/26/16 05:02 Anion Gap 19 mmol/L 10/26/16 05:02 BUN 24 mg/dL (7-17) H 10/26/16 05:02 Creatinine 0.8 mg/dL (0.7-1.2) 10/26/16 05:02 Estimated GFR > 60 ml/min 10/26/16 05:02 BUN/Creatinine Ratio 30.00 % 10/26/16 05:02 Glucose 104 mg/dL (65-100) H 10/26/16 05:02 POC Glucose 103 (70-105) 10/26/16 05:36 Osmolality 332 Mosm/kg 10/14/16 07:03 Lactic Acid 1.8 mmol/L (0.7-2.0) 10/14/16 07:03 Calcium 7.7 mg/dL (8.4-10.2) L 10/26/16 05:02 Phosphorus 2.7 mg/dL (2.5-4.5) D 10/21/16 Unknown Magnesium 1.8 mg/dL (1.7-2.3) 10/26/16 09:03 Total Bilirubin 0.5 mg/dL (0.1-1.2) 10/15/16 04:40 AST 79 units/L (5-40) H 10/15/16 04:40 ALT 27 units/L (7-56) 10/15/16 04:40 Alkaline Phosphatase 80 units/L (35-129) 10/15/16 04:40 Ammonia 35.0 umol/L (25-60) 10/13/16 05:40 Total Creatine Kinase 107 units/L (30-135) 10/13/16 04:22 CK-MB (CK-2) 3.1 ng/mL (0.0-4.0) 10/13/16 04:22 CK-MB (CK-2) Rel Index 2.8 (0-4) 10/13/16 04:22 Troponin T < 0.010 ng/mL (0.00-0.029) 10/14/16 18:55 C-Reactive Protein 10.50 mg/dL (0.00-1.30) H 10/13/16 16:14 Total Protein 5.5 g/dL (6.3-8.2) L 10/15/16 04:40 Albumin 3.0 g/dL (3.9-5) L 10/15/16 04:40 Albumin/Globulin Ratio 1.2 % 10/15/16 04:40 Lipase 143 units/L (13-60) H 10/16/16 04:14 Vitamin B12 976.8 pg/mL (211-911) H 10/22/16 10:25 TSH 0.162 mlU/mL (0.270-4.200) L 10/22/16 14:50 Free T4 0.77 ng/dL (0.76-1.46) 10/22/16 14:50 Urine Color Yellow (Yellow) 10/15/16 11:05 Urine Turbidity Cloudy (Clear) 10/15/16 11:05 Urine pH 5.0 (5.0-7.0) 10/15/16 11:05 Ur Specific [place] 1.009 (1.003-1.030) 10/15/16 11:05 Urine Protein 30 mg/dl mg/dL (Negative) 10/15/16 11:05 Urine Glucose (UA) 150 mg/dL (Negative) 10/15/16 11:05 Urine Ketones Neg mg/dL (Negative) 10/15/16 11:05 Urine Blood Lg (Negative) 10/15/16 11:05 Urine Nitrite Neg (Negative) 10/15/16 11:05 Urine Bilirubin Neg (Negative) 10/15/16 11:05 Urine Urobilinogen < 2.0 mg/dL (<2.0) 10/15/16 11:05 Ur Leukocyte Esterase Neg (Negative) 10/15/16 11:05 Urine WBC (Auto) 7.0 /HPF (0.0-6.0) H 10/15/16 11:05 Urine RBC (Auto) 7.0 /HPF (0.0-6.0) 10/15/16 11:05 U Epithel Cells (Auto) 1.0 /HPF (0-13.0) 10/15/16 11:05 Urine Mucus Few /HPF 10/15/16 11:05 Urine Yeast (Budding) 2+ /HPF 10/15/16 11:05 Urine Osmolality 487 Mosm/kg 10/13/16 Unknown Urine Creatinine < 4.2 mg/dL (0.1-20.0) 10/13/16 Unknown Protein/Creatinin Ratio 0.00 10/13/16 Unknown Urine Sodium 10 mEq/L 10/13/16 Unknown Urine Potassium 1.00 mEq/L 10/13/16 Unknown Urine Chloride 10.0 mEq/L (110-250) L 10/13/16 Unknown Urine Total Protein < 4 mg/dL (5-11.8) L 10/13/16 Unknown Vancomycin Trough 17.7 ug/mL (5.0-20.0) 10/22/16 10:25 Ketones 107.3 mg/dL (0.2-2.8) H 10/13/16 04:22 Blood Type A POSITIVE 10/22/16 20:00 Antibody Screen Negative 10/22/16 20:00 Crossmatch See Detail 10/22/16 20:00
--- NOTE | 2016-10-26 20:29 | Progress Note ---
Subjective Date of service: 10/26/16 Principal diagnosis: respiratory failure on mechanical ventilatory support, DKA Interval history: nO NEW ISSUES. aWAKE. Vital signs - afebrile CHEST - [employer] EN[facility] - S1S2 ABD - BS_ LABS wbc 22. ASSESSMENT 1. Sepsis 2. dka 3. resp failure 4. htn 5. clostridium difficile colitis RECOMMENDATION 1. cbc/bmp in am 2. continue current care. 3. LIPASE, AMYLASE 4. CT ABD/PELVIS Objective - Constitutional Vitals: Vital Signs Temp Pulse Resp BP Pulse Ox 97.5 F L 114 H 19 138/64 98 10/26/16 16:00 10/26/16 20:00 10/26/16 20:00 10/26/16 20:00 10/26/16 20:00 Temperature -Last 24 Hours Temperature 97.5 F Temperature 97.5 F Temperature 97.5 F Temperature 98.2 F Temperature 100.4 F Temperature 102.5 F - Labs CBC & Chem 7: 10/26/16 05:02 10/26/16 05:02 Labs: Abnormal lab results 10/25/16 10/26/16 10/26/16 Range/Units 19:25 00:20 01:09 WBC (4.5-11.0) K/mm3 RBC (3.65-5.03) M/mm3 Hgb (10.1-14.3) gm/dl Hct (30.3-42.9) % RDW (13.2-15.2) % Seg Neuts % (Manual) 81.0 H (40.0-70.0) % Lymphocytes % (Manual) 9.0 L (13.4-35.0) % Seg Neutrophils # Man 17.1 H (1.8-7.7) K/mm3 POC ABG pCO2 (35-45) POC ABG pO2 (80-105) Potassium (3.6-5.0) mmol/L Carbon Dioxide (22-30) mmol/L BUN (7-17) mg/dL Glucose (65-100) mg/dL POC Glucose 44 L 112 H (70-105) Calcium (8.4-10.2) mg/dL 10/26/16 10/26/16 10/26/16 Range/Units 05:02 05:02 12:11 WBC 22.2 H (4.5-11.0) K/mm3 RBC 2.89 L (3.65-5.03) M/mm3 Hgb 8.7 L (10.1-14.3) gm/dl Hct 27.8 L (30.3-42.9) % RDW 16.4 H (13.2-15.2) % Seg Neuts % (Manual) (40.0-70.0) % Lymphocytes % (Manual) (13.4-35.0) % Seg Neutrophils # Man (1.8-7.7) K/mm3 POC ABG pCO2 32.0 L (35-45) POC ABG pO2 33 L (80-105) Potassium 3.2 L D (3.6-5.0) mmol/L Carbon Dioxide 20 L (22-30) mmol/L BUN 24 H (7-17) mg/dL Glucose 104 H (65-100) mg/dL POC Glucose (70-105) Calcium 7.7 L (8.4-10.2) mg/dL 10/26/16 Range/Units 15:28 WBC (4.5-11.0) K/mm3 RBC (3.65-5.03) M/mm3 Hgb (10.1-14.3) gm/dl Hct (30.3-42.9) % RDW (13.2-15.2) % Seg Neuts % (Manual) (40.0-70.0) % Lymphocytes % (Manual) (13.4-35.0) % Seg Neutrophils # Man (1.8-7.7) K/mm3 POC ABG pCO2 33.7 L (35-45) POC ABG pO2 (80-105) Potassium (3.6-5.0) mmol/L Carbon Dioxide (22-30) mmol/L BUN (7-17) mg/dL Glucose (65-100) mg/dL POC Glucose (70-105) Calcium (8.4-10.2) mg/dL
[2016-10-26 21:36] LABS: Amylase 57 units/L (27-131); Lipase 58 units/L (13-60)
[2016-10-27] MEDS: HEPARIN/ 0.45% NACL-25,000 UNIT/500 ML 25,000 UNITS/500 ML BAG IV SCH (03:00)
[2016-10-27 06:22] LABS: Hematocrit 30.1 % (30.3-42.9); Hemoglobin 9.4 gm/dl (10.1-14.3); Mean Corpuscular HGB Conc 31 % (30-34); Mean Corpuscular Hemoglobin 31 pg (28-32); Mean Corpuscular Volume 98 fl (79-97); Platelet Count 527 K/mm3 (140-440); Red Blood Count 3.07 M/mm3 (3.65-5.03); Red Cell Distribution Width 16.4 % (13.2-15.2); White Blood Count 25.5 K/mm3 (4.5-11.0)
[2016-10-27] MEDS: AZACTAM/NS 1 GM/50 ML 1 GM/50 ML VIAL IV SCH ×2 (06:26→17:55)
[2016-10-27 06:27] LABS: Anion Gap 23 mmol/L; BUN/Creatinine Ratio 28.75; Blood Urea Nitrogen 23 mg/dL (7-17); Carbon Dioxide 19 mmol/L (22-30); Chloride 102.2 mmol/L (98-107); Glucose 160 mg/dL (65-100); Sodium 140 mmol/L (137-145)
[2016-10-27] MEDS: LOPRESSOR FEEDTUBE SCH ×3 (06:28→23:57)
[2016-10-27] MEDS: FLAGYL PO SCH ×3 (06:28→23:50)
[2016-10-27] MEDS: fentaNYL DRIP Premix 2,000 MCG/100 ML BAG IV SCH ×3 (07:08→13:40)
--- NOTE | 2016-10-27 08:33 | Progress Note ---
Assessment and Plan Assessment and plan: 66-year-old woman who presented with lethargy and altered mental status she deteriorated and was intubated and in emergency room, she was managed for DKA and she also developed sepsis due to UTI and right lower extremity ischemia 1. Acute respiratory failure with hypercapnia Continue ventilator, failed weaning trial. will plan for Trach and Peg-this has been discussed with the family by the surgeon. I wants to think about it. 2. Diabetes DKA has now resolved, continue SubQ insulin 3. Sepsis- Leukocytosis worse today- ?reactive Suspected due to UTI, urine has only grown Paula, sputum cultures grew group B strep, continue broad-spectrum antibiotics, infectious disease input appreciated 4. 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 Family has been updated. We'll continue to attempt to see if below the knee can be done as salvaged. Vascular consult noted too ill for any surgical intervention, continue heparin drip 5. Hypokalemia replete IV-we'll also give magnesium to help improve this. 6. Toxic metabolic encephalopathy- improved. 7. LUCY- present on admissions. likely vasomotor . resolved 8. Tachycardia- continue BB will add cardizem, if no improvement will add cardiology consultation Given her multiple medical illnesses, her prognosis is quite poor No family at bedside today. Discussed with paster hat lining. Consider LTAC EVAL Critical care time 32 minutes History Interval history: Patient seen and examined, unable to wean from vent. very agitated today. No further adverse events reported to me. Hospitalist Physical - Physical exam Narrative exam: VITAL SIGNS: Reviewed. GENERAL: The patient appeared well nourished and normally developed. Vital signs as documented. HEAD: No signs of head trauma. EYES: Pupils are equal. Extraocular motions intact. EARS: Hearing grossly intact. MOUTH: ETT NECK: No adenopathy, no JVD. CHEST: Chest with diminshed CARDIAC: Regular rate and rhythm. S1 and S2, without murmurs, gallops, or rubs. VASCULAR: trace Edema. Peripheral pulses not palpable at the right lower ext ABDOMEN: Soft, without detectable tenderness. No sign of distention. No rebound or guarding, and no masses palpated. Bowel Sounds normal. MUSCULOSKELETAL: Good range of motion of all major joints. Except right lower extremity. Extremities with cyanosis to right lower ext, right large toe. NEUROLOGIC EXAM: follows command. PSYCHIATRIC: unable to assess. SKIN: cold at the right lower ext from the knee down once - Constitutional Vitals: Temp Pulse Resp BP Pulse Ox 101.4 F H 116 H 21 126/84 100 10/27/16 07:52 10/27/16 06:28 10/27/16 06:00 10/27/16 06:28 10/27/16 06:00 General appearance: Present: no acute distress Results - Labs CBC & Chem 7: 10/27/16 05:15 10/27/16 05:15 Labs: Laboratory Last Values WBC 25.5 K/mm3 (4.5-11.0) H 10/27/16 05:15 RBC 3.07 M/mm3 (3.65-5.03) L 10/27/16 05:15 Hgb 9.4 gm/dl (10.1-14.3) L 10/27/16 05:15 Hct 30.1 % (30.3-42.9) L 10/27/16 05:15 MCV 98 fl (79-97) H 10/27/16 05:15 MCH 31 pg (28-32) 10/27/16 05:15 MCHC 31 % (30-34) 10/27/16 05:15 RDW 16.4 % (13.2-15.2) H 10/27/16 05:15 Plt Count 527 K/mm3 (140-440) H 10/27/16 05:15 Lymph % (Auto) Gas Dispenser 10/21/16 05:00 Hill % (Auto) Gas Dispenser 10/21/16 05:00 Eos % (Auto) Gas Dispenser 10/21/16 05:00 Baso % (Auto) Gas Dispenser 10/21/16 05:00 Lymph # Gas Dispenser 10/21/16 05:00 Hill # Gas Dispenser 10/21/16 05:00 Eos # Gas Dispenser 10/21/16 05:00 Baso # Gas Dispenser 10/21/16 05:00 Add Manual Diff Complete 10/25/16 19:25 Total Counted 100 10/25/16 19:25 Seg Neutrophils % Gas Dispenser 10/21/16 05:00 Seg Neuts % (Manual) 81.0 % (40.0-70.0) H 10/25/16 19:25 Band Neutrophils % 5.0 % 10/25/16 19:25 Lymphocytes % (Manual) 9.0 % (13.4-35.0) L 10/25/16 19:25 Reactive Lymphs % (Man) 0 % 10/25/16 19:25 Monocytes % (Manual) 3.0 % (0.0-7.3) 10/25/16 19:25 Eosinophils % (Manual) 0 % (0.0-4.3) 10/25/16 19:25 Basophils % (Manual) 0 % (0.0-1.8) 10/25/16 19:25 Metamyelocytes % 2.0 % 10/25/16 19:25 Myelocytes % 0 % 10/25/16 19:25 Promyelocytes % 0 % 10/25/16 19:25 Blast Cells % 0 % 10/25/16 19:25 Nucleated RBC % Not Reportable 10/25/16 19:25 Seg Neutrophils # Gas Dispenser 10/21/16 05:00 Seg Neutrophils # Man 17.1 K/mm3 (1.8-7.7) H 10/25/16 19:25 Band Neutrophils # 1.1 K/mm3 10/25/16 19:25 Lymphocytes # (Manual) 1.9 K/mm3 (1.2-5.4) 10/25/16 19:25 Abs React Lymphs (Man) 0.0 K/mm3 10/25/16 19:25 Monocytes # (Manual) 0.6 K/mm3 (0.0-0.8) 10/25/16 19:25 Eosinophils # (Manual) 0.0 K/mm3 (0.0-0.4) 10/25/16 19:25 Basophils # (Manual) 0.0 K/mm3 (0.0-0.1) 10/25/16 19:25 Metamyelocytes # 0.4 K/mm3 10/25/16 19:25 Myelocytes # 0.0 K/mm3 10/25/16 19:25 Promyelocytes # 0.0 K/mm3 10/25/16 19:25 Blast Cells # 0.0 K/mm3 10/25/16 19:25 WBC Morphology Not Reportable 10/25/16 19:25 Hypersegmented Neuts Not Reportable 10/25/16 19:25 Hyposegmented Neuts Not Reportable 10/25/16 19:25 Hypogranular Neuts Not Reportable 10/25/16 19:25 Hypersegmented Polys TNR 10/17/16 07:08 Smudge Cells Not Reportable 10/25/16 19:25 Toxic Granulation Not Reportable 10/25/16 19:25 Toxic Vacuolation Not Reportable 10/25/16 19:25 Dohle Bodies Not Reportable 10/25/16 19:25 Pelger-Huet Anomaly Not Reportable 10/25/16 19:25 Alka Rods Not Reportable 10/25/16 19:25 Platelet Estimate Consistent w auto 10/25/16 19:25 Clumped Platelets Not Reportable 10/25/16 19:25 Plt Clumps, EDTA Not Reportable 10/25/16 19:25 Large Platelets 1+ 10/25/16 19:25 Giant Platelets Not Reportable 10/25/16 19:25 Platelet Satelliting Not Reportable 10/25/16 19:25 Plt Morphology Comment Not Reportable 10/25/16 19:25 RBC Morphology Not Reportable 10/25/16 19:25 Dimorphic RBCs Not Reportable 10/25/16 19:25 Polychromasia Not Reportable 10/25/16 19:25 Hypochromasia 1+ 10/25/16 19:25 Poikilocytosis 1+ 10/25/16 19:25 Basophilic Stippling TNR 10/17/16 07:08 Anisocytosis 1+ 10/25/16 19:25 Microcytosis Not Reportable 10/25/16 19:25 Macrocytosis Not Reportable 10/25/16 19:25 Spherocytes Not Reportable 10/25/16 19:25 Pappenheimer Bodies Not Reportable 10/25/16 19:25 Sickle Cells Not Reportable 10/25/16 19:25 Target Cells Not Reportable 10/25/16 19:25 Tear Drop Cells Not Reportable 10/25/16 19:25 Ovalocytes Not Reportable 10/25/16 19:25 Stomatocytes Rare 10/22/16 04:20 Helmet Cells Not Reportable 10/25/16 19:25 Higgins-Toco Bodies Not Reportable 10/25/16 19:25 [place] Rings Not Reportable 10/25/16 19:25 Jeannette Cells Not Reportable 10/25/16 19:25 Bite Cells Not Reportable 10/25/16 19:25 Crenated Cell Not Reportable 10/25/16 19:25 Elliptocytes Not Reportable 10/25/16 19:25 Acanthocytes (Spur) Not Reportable 10/25/16 19:25 Rouleaux Not Reportable 10/25/16 19:25 Hemoglobin C Crystals Not Reportable 10/25/16 19:25 Schistocytes Not Reportable 10/25/16 19:25 Malaria parasites Not Reportable 10/25/16 19:25 David Bodies Not Reportable 10/25/16 19:25 Hem Pathologist Commnt No 10/25/16 19:25 PT 16.4 Sec. (12.2-14.9) H 10/17/16 16:07 INR 1.33 (0.87-1.13) H 10/17/16 16:07 APTT 38.8 Sec. (24.2-36.6) H 10/17/16 16:07 Heparin Anti-Xa Level 0.48 U.I./ml (0.3-0.7) 10/26/16 05:02 POC ABG pH 7.398 (7.35-7.45) 10/26/16 15:28 POC ABG pCO2 33.7 (35-45) L 10/26/16 15:28 POC ABG pO2 99 (80-105) 10/26/16 15:28 POC ABG HCO3 20.8 10/26/16 15:28 POC ABG Total CO2 22 10/26/16 15:28 POC ABG O2 Sat 98 10/26/16 15:28 POC ABG Base Excess -4 10/26/16 15:28 VBG pH 7.020 (7.320-7.420) L* 10/13/16 04:22 FiO2 25 % 10/26/16 15:28 Sodium 140 mmol/L (137-145) 10/27/16 05:15 Potassium 4.0 mmol/L (3.6-5.0) D 10/27/16 05:15 Chloride 102.2 mmol/L (98-107) 10/27/16 05:15 Carbon Dioxide 19 mmol/L (22-30) L 10/27/16 05:15 Anion Gap 23 mmol/L 10/27/16 05:15 BUN 23 mg/dL (7-17) H 10/27/16 05:15 Creatinine 0.8 mg/dL (0.7-1.2) 10/27/16 05:15 Estimated GFR > 60 ml/min 10/27/16 05:15 BUN/Creatinine Ratio 28.75 % 10/27/16 05:15 Glucose 160 mg/dL (65-100) H 10/27/16 05:15 POC Glucose 168 (70-105) H 10/27/16 05:38 Osmolality 332 Mosm/kg 10/14/16 07:03 Lactic Acid 1.8 mmol/L (0.7-2.0) 10/14/16 07:03 Calcium 8.0 mg/dL (8.4-10.2) L 10/27/16 05:15 Phosphorus 2.7 mg/dL (2.5-4.5) D 10/21/16 Unknown Magnesium 1.8 mg/dL (1.7-2.3) 10/26/16 09:03 Total Bilirubin 0.5 mg/dL (0.1-1.2) 10/15/16 04:40 AST 79 units/L (5-40) H 10/15/16 04:40 ALT 27 units/L (7-56) 10/15/16 04:40 Alkaline Phosphatase 80 units/L (35-129) 10/15/16 04:40 Ammonia 35.0 umol/L (25-60) 10/13/16 05:40 Total Creatine Kinase 107 units/L (30-135) 10/13/16 04:22 CK-MB (CK-2) 3.1 ng/mL (0.0-4.0) 10/13/16 04:22 CK-MB (CK-2) Rel Index 2.8 (0-4) 10/13/16 04:22 Troponin T < 0.010 ng/mL (0.00-0.029) 10/14/16 18:55 C-Reactive Protein 10.50 mg/dL (0.00-1.30) H 10/13/16 16:14 Total Protein 5.5 g/dL (6.3-8.2) L 10/15/16 04:40 Albumin 3.0 g/dL (3.9-5) L 10/15/16 04:40 Albumin/Globulin Ratio 1.2 % 10/15/16 04:40 Amylase 57 units/L (27-131) 10/26/16 20:00 Lipase 58 units/L (13-60) 10/26/16 20:00 Vitamin B12 976.8 pg/mL (211-911) H 10/22/16 10:25 TSH 0.162 mlU/mL (0.270-4.200) L 10/22/16 14:50 Free T4 0.77 ng/dL (0.76-1.46) 10/22/16 14:50 Urine Color Yellow (Yellow) 10/15/16 11:05 Urine Turbidity Cloudy (Clear) 10/15/16 11:05 Urine pH 5.0 (5.0-7.0) 10/15/16 11:05 Ur Specific Odon 1.009 (1.003-1.030) 10/15/16 11:05 Urine Protein 30 mg/dl mg/dL (Negative) 10/15/16 11:05 Urine Glucose (UA) 150 mg/dL (Negative) 10/15/16 11:05 Urine Ketones Neg mg/dL (Negative) 10/15/16 11:05 Urine Blood Lg (Negative) 10/15/16 11:05 Urine Nitrite Neg (Negative) 10/15/16 11:05 Urine Bilirubin Neg (Negative) 10/15/16 11:05 Urine Urobilinogen < 2.0 mg/dL (<2.0) 10/15/16 11:05 Ur Leukocyte Esterase Neg (Negative) 10/15/16 11:05 Urine WBC (Auto) 7.0 /HPF (0.0-6.0) H 10/15/16 11:05 Urine RBC (Auto) 7.0 /HPF (0.0-6.0) 10/15/16 11:05 U Epithel Cells (Auto) 1.0 /HPF (0-13.0) 10/15/16 11:05 Urine Mucus Few /HPF 10/15/16 11:05 Urine Yeast (Budding) 2+ /HPF 10/15/16 11:05 Urine Osmolality 487 Mosm/kg 10/13/16 Unknown Urine Creatinine < 4.2 mg/dL (0.1-20.0) 10/13/16 Unknown Protein/Creatinin Ratio 0.00 10/13/16 Unknown Urine Sodium 10 mEq/L 10/13/16 Unknown Urine Potassium 1.00 mEq/L 10/13/16 Unknown Urine Chloride 10.0 mEq/L (110-250) L 10/13/16 Unknown Urine Total Protein < 4 mg/dL (5-11.8) L 10/13/16 Unknown Vancomycin Trough 17.7 ug/mL (5.0-20.0) 10/22/16 10:25 Ketones 107.3 mg/dL (0.2-2.8) H 10/13/16 04:22 Blood Type A POSITIVE 10/22/16 20:00 Antibody Screen Negative 10/22/16 20:00 Crossmatch See Detail 10/22/16 20:00
[2016-10-27] MEDS: TYLENOL FEEDTUBE PRN ×2 (09:06→23:49)
[2016-10-27] MEDS: DIFLUCAN 200 MG/100 ML BAG IV SCH (09:07)
[2016-10-27] MEDS: PEPCID PO SCH ×2 (09:09→23:50)
--- NOTE | 2016-10-27 11:24 | Event Note ---
Date: 10/27/16 66-year-old female with right leg ischemia. She is still very sick on the vent support. Her white count is going up to 25.5 today. When she is medically optimized and recovered will offer vascular intervention for healing lower level of amputation, BKA.
[2016-10-27] MEDS: VANCOMYCIN VIAL 1,250 MG in NACL 0.9% 250ML 250 ML IV SCH (13:24)
--- NOTE | 2016-10-27 13:46 | Progress Note ---
Assessment and Plan - Patient Problems (1) Acute respiratory failure with hypercapnia Current Visit: Yes Status: Acute Plan to address problem: - continue aspiration precautions / VAP bundles - continue bronchodilators and pulmonary toilet - wean oxygen to keep sats > 94% - resume graded weaning at Psupp of 20 cmH2O - ETT day # 11-12 and will need a tracheostomy if not meeting weaning criteria shortly (2) Altered mental status Current Visit: Yes Status: Acute Qualifiers: Altered mental status type: A Coma depth: C Coma timing: C Plan to address problem: - no active seizures - following clinically - seen by neurology and will follow their recommendations - no seizures on EEG (3) LUCY (acute kidney injury) Current Visit: Yes Status: Acute Plan to address problem: - replaced potasium - continue free water flushes - follow I's & O's - improving numbers (4) DKA (diabetic ketoacidoses) Current Visit: Yes Status: Acute Qualifiers: Diabetes mellitus type: D Diabetes mellitus complication detail: D Plan to address problem: - off IV insulin - continue SSI - resolved (5) Sepsis Current Visit: No Status: Acute Qualifiers: Sepsis type: S Plan to address problem: - continue anti-infectives per ID recs - follow clinically - trend lactate and CRP prn (6) Tachycardia Current Visit: Yes Status: Acute Plan to address problem: - improved with beta-blockade (7) Discharge planning issues Current Visit: No Status: Acute Plan to address problem: - not accepted by [facility] ...remains critically ill on life sustaining treatments including MVS and at high risk for further deterioration including ...31' CCT Subjective Date of service: 10/27/16 Principal diagnosis: respiratory failure on mechanical ventilatory support, DKA Interval history: Seen and examined at bedside; 24 hour events reviewed; nursing and respiratory care staff consulted; no adverse overnight events reported to me; still not tolerating weaning trials; leucocytosis is persistent; no emesis or overt aspiration and follows simple commands Objective Vital Signs - 12hr 10/27/16 10/27/16 10/27/16 02:00 03:00 04:00 Temperature 98 F Pulse Rate 84 104 H 94 H Pulse Rate [ 119 H Apical] Respiratory 18 18 20 Rate Blood Pressure 118/56 118/56 129/66 O2 Sat by Pulse 100 100 100 Oximetry 10/27/16 10/27/16 10/27/16 05:00 05:40 06:00 Temperature Pulse Rate 111 H 121 H 119 H Pulse Rate [ Apical] Respiratory 20 21 Rate Blood Pressure 135/79 144/71 144/71 O2 Sat by Pulse 100 100 100 Oximetry 10/27/16 10/27/16 10/27/16 06:28 07:00 07:52 Temperature 101.4 F H Pulse Rate 116 H 111 H Pulse Rate [ Apical] Respiratory 15 Rate Blood Pressure 126/84 154/84 O2 Sat by Pulse 99 Oximetry 10/27/16 10/27/16 10/27/16 08:00 09:00 10:00 Temperature Pulse Rate 106 H 112 H 93 H Pulse Rate [ Apical] Respiratory 21 21 21 Rate Blood Pressure 132/69 131/59 141/65 O2 Sat by Pulse 98 100 99 Oximetry 10/27/16 10/27/16 10/27/16 10:50 11:00 12:00 Temperature 101.1 F H Pulse Rate 117 H 108 H Pulse Rate [ 106 H Apical] Respiratory 20 Rate Blood Pressure 152/71 141/65 O2 Sat by Pulse 99 98 99 Oximetry Constitutional: no acute distress, other (sedated) Eyes: non-icteric ENT: oropharynx moist Neck: supple, no lymphadenopathy Effort: mildly labored Ascultation: Bilateral: diminished breath sounds, rales (bases) Cardiovascular: regular rate and rhythm, other (tachycardia) Gastrointestinal: soft, non-distended Integumentary: normal Extremities: no cyanosis, no edema, no ischemia or petechiae, other (cold right foot with digital ischemia) Neurologic: non-focal exam (grossly), motor strength normal and, other (delirium /dementia element) Psychiatric: other (sedated) CBC and BMP: 11/01/16 06:33 11/01/16 06:33 ABG, PT/INR, D-dimer: ABG POC ABG pH 7.398 (7.35-7.45) 10/26/16 15:28 POC ABG pCO2 33.7 (35-45) L 10/26/16 15:28 POC ABG pO2 99 (80-105) 10/26/16 15:28 POC ABG HCO3 20.8 10/26/16 15:28 POC ABG Total CO2 22 10/26/16 15:28 POC ABG O2 Sat 98 10/26/16 15:28 PT/INR, D-dimer PT 16.4 Sec. (12.2-14.9) H 10/17/16 16:07 INR 1.33 (0.87-1.13) H 10/17/16 16:07 Abnormal lab findings: Abnormal Labs 10/13/16 10/13/16 10/13/16 06:38 06:38 07:23 WBC RBC Hgb Hct MCV RDW Plt Count Lymph % (Auto) Maries % (Auto) Maries # Seg Neutrophils % Seg Neuts % (Manual) Lymphocytes % (Manual) Monocytes % (Manual) Seg Neutrophils # Seg Neutrophils # Man Lymphocytes # (Manual) Monocytes # (Manual) Eosinophils # (Manual) Basophils # (Manual) PT INR APTT Heparin Anti-Xa Level POC ABG pH POC ABG pCO2 POC ABG pO2 Sodium Potassium 6.2 H* Chloride Carbon Dioxide 8 L* BUN 85 H Creatinine 2.8 H Glucose 602 H* POC Glucose 495 H Calcium 7.9 L Phosphorus 6.9 H D Magnesium 3.0 H AST C-Reactive Protein Total Protein Albumin Lipase Vitamin B12 TSH Urine WBC (Auto) Urine Chloride Urine Total Protein Crossmatch 10/13/16 10/13/16 10/13/16 08:49 08:55 10:12 WBC RBC Hgb Hct MCV RDW Plt Count Lymph % (Auto) Maries % (Auto) Maries # Seg Neutrophils % Seg Neuts % (Manual) Lymphocytes % (Manual) Monocytes % (Manual) Seg Neutrophils # Seg Neutrophils # Man Lymphocytes # (Manual) Monocytes # (Manual) Eosinophils # (Manual) Basophils # (Manual) PT INR APTT Heparin Anti-Xa Level POC ABG pH POC ABG pCO2 POC ABG pO2 Sodium Potassium 5.6 H Chloride Carbon Dioxide 11 L BUN 77 H Creatinine 2.7 H Glucose 457 H POC Glucose > 500 H 424 H Calcium 8.0 L Phosphorus Magnesium AST C-Reactive Protein Total Protein Albumin Lipase Vitamin B12 TSH Urine WBC (Auto) Urine Chloride Urine Total Protein Crossmatch 10/13/16 10/13/16 10/13/16 10:44 11:22 12:20 WBC RBC Hgb Hct MCV RDW Plt Count Lymph % (Auto) Maries % (Auto) Maries # Seg Neutrophils % Seg Neuts % (Manual) Lymphocytes % (Manual) Monocytes % (Manual) Seg Neutrophils # Seg Neutrophils # Man Lymphocytes # (Manual) Monocytes # (Manual) Eosinophils # (Manual) Basophils # (Manual) PT INR APTT Heparin Anti-Xa Level POC ABG pH POC ABG pCO2 POC ABG pO2 Sodium Potassium 5.4 H Chloride Carbon Dioxide 14 L BUN 72 H Creatinine 2.6 H Glucose 383 H POC Glucose 391 H 313 H Calcium 8.2 L Phosphorus Magnesium AST C-Reactive Protein Total Protein Albumin Lipase Vitamin B12 TSH Urine WBC (Auto) Urine Chloride Urine Total Protein Crossmatch 10/13/16 10/13/16 10/13/16 13:32 14:44 15:57 WBC RBC Hgb Hct MCV RDW Plt Count Lymph % (Auto) Maries % (Auto) Maries # Seg Neutrophils % Seg Neuts % (Manual) Lymphocytes % (Manual) Monocytes % (Manual) Seg Neutrophils # Seg Neutrophils # Man Lymphocytes # (Manual) Monocytes # (Manual) Eosinophils # (Manual) Basophils # (Manual) PT INR APTT Heparin Anti-Xa Level POC ABG pH POC ABG pCO2 POC ABG pO2 Sodium Potassium Chloride Carbon Dioxide BUN Creatinine Glucose POC Glucose 296 H 210 H 190 H Calcium Phosphorus Magnesium AST C-Reactive Protein Total Protein Albumin Lipase Vitamin B12 TSH Urine WBC (Auto) Urine Chloride Urine Total Protein Crossmatch 10/13/16 10/13/16 10/13/16 16:14 16:14 17:17 WBC RBC Hgb Hct MCV RDW Plt Count Lymph % (Auto) Maries % (Auto) Maries # Seg Neutrophils % Seg Neuts % (Manual) Lymphocytes % (Manual) Monocytes % (Manual) Seg Neutrophils # Seg Neutrophils # Man Lymphocytes # (Manual) Monocytes # (Manual) Eosinophils # (Manual) Basophils # (Manual) PT INR APTT Heparin Anti-Xa Level POC ABG pH POC ABG pCO2 POC ABG pO2 Sodium Potassium Chloride Carbon Dioxide 17 L BUN 58 H Creatinine 1.8 H Glucose 172 H POC Glucose 193 H Calcium 7.7 L Phosphorus Magnesium AST C-Reactive Protein 10.50 H Total Protein Albumin Lipase Vitamin B12 TSH Urine WBC (Auto) Urine Chloride Urine Total Protein Crossmatch 10/13/16 10/13/16 10/13/16 17:55 18:32 19:41 WBC RBC Hgb Hct MCV RDW Plt Count Lymph % (Auto) Maries % (Auto) Maries # Seg Neutrophils % Seg Neuts % (Manual) Lymphocytes % (Manual) Monocytes % (Manual) Seg Neutrophils # Seg Neutrophils # Man Lymphocytes # (Manual) Monocytes # (Manual) Eosinophils # (Manual) Basophils # (Manual) PT INR APTT Heparin Anti-Xa Level POC ABG pH POC ABG pCO2 30.6 L POC ABG pO2 218 H Sodium Potassium Chloride Carbon Dioxide BUN Creatinine Glucose POC Glucose 192 H 177 H Calcium Phosphorus Magnesium AST C-Reactive Protein Total Protein Albumin Lipase Vitamin B12 TSH Urine WBC (Auto) Urine Chloride Urine Total Protein Crossmatch 10/13/16 10/13/16 10/13/16 20:54 22:07 23:13 WBC RBC Hgb Hct MCV RDW Plt Count Lymph % (Auto) Maries % (Auto) Maries # Seg Neutrophils % Seg Neuts % (Manual) Lymphocytes % (Manual) Monocytes % (Manual) Seg Neutrophils # Seg Neutrophils # Man Lymphocytes # (Manual) Monocytes # (Manual) Eosinophils # (Manual) Basophils # (Manual) PT INR APTT Heparin Anti-Xa Level POC ABG pH POC ABG pCO2 POC ABG pO2 Sodium Potassium Chloride Carbon Dioxide BUN Creatinine Glucose POC Glucose 178 H 160 H 168 H Calcium Phosphorus Magnesium AST C-Reactive Protein Total Protein Albumin Lipase Vitamin B12 TSH Urine WBC (Auto) Urine Chloride Urine Total Protein Crossmatch 10/13/16 10/13/16 10/14/16 23:25 Unknown 00:21 WBC RBC Hgb Hct MCV RDW Plt Count Lymph % (Auto) Maries % (Auto) Maries # Seg Neutrophils % Seg Neuts % (Manual) Lymphocytes % (Manual) Monocytes % (Manual) Seg Neutrophils # Seg Neutrophils # Man Lymphocytes # (Manual) Monocytes # (Manual) Eosinophils # (Manual) Basophils # (Manual) PT INR APTT Heparin Anti-Xa Level POC ABG pH POC ABG pCO2 POC ABG pO2 Sodium 148 H Potassium Chloride 114.6 H Carbon Dioxide 17 L BUN 56 H Creatinine 1.6 H Glucose 151 H POC Glucose 171 H Calcium 7.8 L Phosphorus Magnesium AST C-Reactive Protein Total Protein Albumin Lipase Vitamin B12 TSH Urine WBC (Auto) Urine Chloride 10.0 L Urine Total Protein < 4 L Crossmatch 10/14/16 10/14/16 10/14/16 01:22 02:29 03:30 WBC RBC Hgb Hct MCV RDW Plt Count Lymph % (Auto) Maries % (Auto) Maries # Seg Neutrophils % Seg Neuts % (Manual) Lymphocytes % (Manual) Monocytes % (Manual) Seg Neutrophils # Seg Neutrophils # Man Lymphocytes # (Manual) Monocytes # (Manual) Eosinophils # (Manual) Basophils # (Manual) PT INR APTT Heparin Anti-Xa Level POC ABG pH POC ABG pCO2 POC ABG pO2 Sodium Potassium Chloride Carbon Dioxide BUN Creatinine Glucose POC Glucose 144 H 136 H 143 H Calcium Phosphorus Magnesium AST C-Reactive Protein Total Protein Albumin Lipase Vitamin B12 TSH Urine WBC (Auto) Urine Chloride Urine Total Protein Crossmatch 10/14/16 10/14/16 10/14/16 04:28 05:16 05:44 WBC RBC Hgb Hct MCV RDW Plt Count Lymph % (Auto) Maries % (Auto) Maries # Seg Neutrophils % Seg Neuts % (Manual) Lymphocytes % (Manual) Monocytes % (Manual) Seg Neutrophils # Seg Neutrophils # Man Lymphocytes # (Manual) Monocytes # (Manual) Eosinophils # (Manual) Basophils # (Manual) PT INR APTT Heparin Anti-Xa Level POC ABG pH POC ABG pCO2 28.2 L POC ABG pO2 125 H Sodium Potassium Chloride Carbon Dioxide BUN Creatinine Glucose POC Glucose 133 H 160 H Calcium Phosphorus Magnesium AST C-Reactive Protein Total Protein Albumin Lipase Vitamin B12 TSH Urine WBC (Auto) Urine Chloride Urine Total Protein Crossmatch 10/14/16 10/14/16 10/14/16 06:12 06:45 07:03 WBC RBC Hgb Hct MCV RDW Plt Count Lymph % (Auto) Maries % (Auto) Maries # Seg Neutrophils % Seg Neuts % (Manual) Lymphocytes % (Manual) Monocytes % (Manual) Seg Neutrophils # Seg Neutrophils # Man Lymphocytes # (Manual) Monocytes # (Manual) Eosinophils # (Manual) Basophils # (Manual) PT INR APTT Heparin Anti-Xa Level POC ABG pH POC ABG pCO2 POC ABG pO2 Sodium 149 H Potassium Chloride 115.4 H Carbon Dioxide 17 L BUN 45 H Creatinine 1.5 H Glucose 139 H POC Glucose 149 H Calcium 7.4 L Phosphorus 1.0 L D Magnesium AST C-Reactive Protein Total Protein Albumin Lipase Vitamin B12 TSH Urine WBC (Auto) Urine Chloride Urine Total Protein Crossmatch 10/14/16 10/14/16 10/14/16 07:03 08:02 09:16 WBC RBC Hgb Hct MCV RDW Plt Count Lymph % (Auto) Maries % (Auto) Maries # Seg Neutrophils % Seg Neuts % (Manual) Lymphocytes % (Manual) Monocytes % (Manual) Seg Neutrophils # Seg Neutrophils # Man Lymphocytes # (Manual) Monocytes # (Manual) Eosinophils # (Manual) Basophils # (Manual) PT INR APTT Heparin Anti-Xa Level POC ABG pH POC ABG pCO2 POC ABG pO2 Sodium Potassium Chloride Carbon Dioxide BUN Creatinine Glucose POC Glucose 156 H 158 H Calcium Phosphorus Magnesium AST C-Reactive Protein Total Protein Albumin Lipase 738 H Vitamin B12 TSH Urine WBC (Auto) Urine Chloride Urine Total Protein Crossmatch 10/14/16 10/14/16 10/14/16 10:26 11:03 11:57 WBC RBC Hgb Hct MCV RDW Plt Count Lymph % (Auto) Maries % (Auto) Maries # Seg Neutrophils % Seg Neuts % (Manual) Lymphocytes % (Manual) Monocytes % (Manual) Seg Neutrophils # Seg Neutrophils # Man Lymphocytes # (Manual) Monocytes # (Manual) Eosinophils # (Manual) Basophils # (Manual) PT INR APTT Heparin Anti-Xa Level POC ABG pH 7.198 L POC ABG pCO2 47.5 H POC ABG pO2 Sodium Potassium Chloride Carbon Dioxide BUN Creatinine Glucose POC Glucose 174 H 189 H Calcium Phosphorus Magnesium AST C-Reactive Protein Total Protein Albumin Lipase Vitamin B12 TSH Urine WBC (Auto) Urine Chloride Urine Total Protein Crossmatch 10/14/16 10/14/16 10/14/16 12:02 12:02 13:11 WBC 13.4 H RBC 3.60 L Hgb Hct MCV 98 H D RDW 13.1 L Plt Count Lymph % (Auto) Maries % (Auto) Maries # Seg Neutrophils % Seg Neuts % (Manual) Lymphocytes % (Manual) Monocytes % (Manual) Seg Neutrophils # Seg Neutrophils # Man Lymphocytes # (Manual) Monocytes # (Manual) Eosinophils # (Manual) Basophils # (Manual) PT INR APTT Heparin Anti-Xa Level POC ABG pH POC ABG pCO2 POC ABG pO2 Sodium Potassium Chloride 110.7 H Carbon Dioxide 19 L BUN 38 H Creatinine 1.4 H Glucose 182 H POC Glucose 173 H Calcium 7.5 L Phosphorus Magnesium AST C-Reactive Protein Total Protein Albumin Lipase Vitamin B12 TSH Urine WBC (Auto) Urine Chloride Urine Total Protein Crossmatch 10/14/16 10/14/16 10/14/16 14:24 15:31 16:36 WBC RBC Hgb Hct MCV RDW Plt Count Lymph % (Auto) Maries % (Auto) Maries # Seg Neutrophils % Seg Neuts % (Manual) Lymphocytes % (Manual) Monocytes % (Manual) Seg Neutrophils # Seg Neutrophils # Man Lymphocytes # (Manual) Monocytes # (Manual) Eosinophils # (Manual) Basophils # (Manual) PT INR APTT Heparin Anti-Xa Level POC ABG pH POC ABG pCO2 POC ABG pO2 Sodium Potassium Chloride Carbon Dioxide BUN Creatinine Glucose POC Glucose 123 H 124 H 156 H Calcium Phosphorus Magnesium AST C-Reactive Protein Total Protein Albumin Lipase Vitamin B12 TSH Urine WBC (Auto) Urine Chloride Urine Total Protein Crossmatch 10/14/16 10/14/16 10/14/16 17:43 19:00 20:08 WBC RBC Hgb Hct MCV RDW Plt Count Lymph % (Auto) Maries % (Auto) Maries # Seg Neutrophils % Seg Neuts % (Manual) Lymphocytes % (Manual) Monocytes % (Manual) Seg Neutrophils # Seg Neutrophils # Man Lymphocytes # (Manual) Monocytes # (Manual) Eosinophils # (Manual) Basophils # (Manual) PT INR APTT Heparin Anti-Xa Level POC ABG pH POC ABG pCO2 POC ABG pO2 Sodium Potassium Chloride Carbon Dioxide BUN Creatinine Glucose POC Glucose 154 H 123 H 138 H Calcium Phosphorus Magnesium AST C-Reactive Protein Total Protein Albumin Lipase Vitamin B12 TSH Urine WBC (Auto) Urine Chloride Urine Total Protein Crossmatch 10/14/16 10/14/16 10/14/16 21:17 22:25 23:37 WBC RBC Hgb Hct MCV RDW Plt Count Lymph % (Auto) Maries % (Auto) Maries # Seg Neutrophils % Seg Neuts % (Manual) Lymphocytes % (Manual) Monocytes % (Manual) Seg Neutrophils # Seg Neutrophils # Man Lymphocytes # (Manual) Monocytes # (Manual) Eosinophils # (Manual) Basophils # (Manual) PT INR APTT Heparin Anti-Xa Level POC ABG pH POC ABG pCO2 POC ABG pO2 Sodium Potassium Chloride Carbon Dioxide BUN Creatinine Glucose POC Glucose 148 H 132 H 137 H Calcium Phosphorus Magnesium AST C-Reactive Protein Total Protein Albumin Lipase Vitamin B12 TSH Urine WBC (Auto) Urine Chloride Urine Total Protein Crossmatch 10/15/16 10/15/16 10/15/16 00:49 01:53 03:06 WBC RBC Hgb Hct MCV RDW Plt Count Lymph % (Auto) Maries % (Auto) Maries # Seg Neutrophils % Seg Neuts % (Manual) Lymphocytes % (Manual) Monocytes % (Manual) Seg Neutrophils # Seg Neutrophils # Man Lymphocytes # (Manual) Monocytes # (Manual) Eosinophils # (Manual) Basophils # (Manual) PT INR APTT Heparin Anti-Xa Level POC ABG pH POC ABG pCO2 POC ABG pO2 Sodium Potassium Chloride Carbon Dioxide BUN Creatinine Glucose POC Glucose 132 H 134 H 134 H Calcium Phosphorus Magnesium AST C-Reactive Protein Total Protein Albumin Lipase Vitamin B12 TSH Urine WBC (Auto) Urine Chloride Urine Total Protein Crossmatch 10/15/16 10/15/16 10/15/16 04:40 04:46 06:21 WBC RBC Hgb Hct MCV RDW Plt Count Lymph % (Auto) Maries % (Auto) Maries # Seg Neutrophils % Seg Neuts % (Manual) Lymphocytes % (Manual) Monocytes % (Manual) Seg Neutrophils # Seg Neutrophils # Man Lymphocytes # (Manual) Monocytes # (Manual) Eosinophils # (Manual) Basophils # (Manual) PT INR APTT Heparin Anti-Xa Level POC ABG pH POC ABG pCO2 30.7 L POC ABG pO2 108 H Sodium Potassium Chloride 109.0 H Carbon Dioxide 17 L BUN 27 H Creatinine Glucose 124 H POC Glucose 160 H Calcium 7.5 L Phosphorus Magnesium AST 79 H C-Reactive Protein Total Protein 5.5 L Albumin 3.0 L Lipase Vitamin B12 TSH Urine WBC (Auto) Urine Chloride Urine Total Protein Crossmatch 10/15/16 10/15/16 10/15/16 07:12 08:01 09:03 WBC RBC Hgb Hct MCV RDW Plt Count Lymph % (Auto) Maries % (Auto) Maries # Seg Neutrophils % Seg Neuts % (Manual) Lymphocytes % (Manual) Monocytes % (Manual) Seg Neutrophils # Seg Neutrophils # Man Lymphocytes # (Manual) Monocytes # (Manual) Eosinophils # (Manual) Basophils # (Manual) PT INR APTT Heparin Anti-Xa Level POC ABG pH POC ABG pCO2 POC ABG pO2 Sodium Potassium Chloride Carbon Dioxide BUN Creatinine Glucose POC Glucose 179 H 187 H 165 H Calcium Phosphorus Magnesium AST C-Reactive Protein Total Protein Albumin Lipase Vitamin B12 TSH Urine WBC (Auto) Urine Chloride Urine Total Protein Crossmatch 10/15/16 10/15/16 10/15/16 10:06 10:06 10:07 WBC 12.1 H RBC 3.01 L Hgb 9.7 L Hct 29.6 L MCV 98 H RDW Plt Count 129 L Lymph % (Auto) Maries % (Auto) Maries # Seg Neutrophils % Seg Neuts % (Manual) Lymphocytes % (Manual) Monocytes % (Manual) Seg Neutrophils # Seg Neutrophils # Man Lymphocytes # (Manual) Monocytes # (Manual) Eosinophils # (Manual) Basophils # (Manual) PT INR APTT Heparin Anti-Xa Level POC ABG pH POC ABG pCO2 POC ABG pO2 Sodium Potassium 3.2 L D Chloride 109.6 H Carbon Dioxide 18 L BUN 22 H Creatinine Glucose 127 H POC Glucose 147 H Calcium 7.0 L Phosphorus Magnesium AST C-Reactive Protein Total Protein Albumin Lipase Vitamin B12 TSH Urine WBC (Auto) Urine Chloride Urine Total Protein Crossmatch 10/15/16 10/15/16 10/15/16 11:05 11:06 11:57 WBC RBC Hgb Hct MCV RDW Plt Count Lymph % (Auto) Maries % (Auto) Maries # Seg Neutrophils % Seg Neuts % (Manual) Lymphocytes % (Manual) Monocytes % (Manual) Seg Neutrophils # Seg Neutrophils # Man Lymphocytes # (Manual) Monocytes # (Manual) Eosinophils # (Manual) Basophils # (Manual) PT INR APTT Heparin Anti-Xa Level POC ABG pH 7.305 L POC ABG pCO2 POC ABG pO2 Sodium Potassium Chloride Carbon Dioxide BUN Creatinine Glucose POC Glucose 145 H Calcium Phosphorus Magnesium AST C-Reactive Protein Total Protein Albumin Lipase Vitamin B12 TSH Urine WBC (Auto) 7.0 H Urine Chloride Urine Total Protein Crossmatch 10/15/16 10/15/16 10/15/16 12:04 13:59 15:24 WBC RBC Hgb Hct MCV RDW Plt Count Lymph % (Auto) Maries % (Auto) Maries # Seg Neutrophils % Seg Neuts % (Manual) Lymphocytes % (Manual) Monocytes % (Manual) Seg Neutrophils # Seg Neutrophils # Man Lymphocytes # (Manual) Monocytes # (Manual) Eosinophils # (Manual) Basophils # (Manual) PT INR APTT Heparin Anti-Xa Level POC ABG pH POC ABG pCO2 POC ABG pO2 Sodium Potassium Chloride Carbon Dioxide BUN Creatinine Glucose POC Glucose 123 H 147 H 153 H Calcium Phosphorus Magnesium AST C-Reactive Protein Total Protein Albumin Lipase Vitamin B12 TSH Urine WBC (Auto) Urine Chloride Urine Total Protein Crossmatch 10/15/16 10/15/16 10/15/16 16:30 17:34 18:30 WBC RBC Hgb Hct MCV RDW Plt Count Lymph % (Auto) Maries % (Auto) Maries # Seg Neutrophils % Seg Neuts % (Manual) Lymphocytes % (Manual) Monocytes % (Manual) Seg Neutrophils # Seg Neutrophils # Man Lymphocytes # (Manual) Monocytes # (Manual) Eosinophils # (Manual) Basophils # (Manual) PT INR APTT Heparin Anti-Xa Level POC ABG pH POC ABG pCO2 POC ABG pO2 Sodium Potassium Chloride Carbon Dioxide BUN Creatinine Glucose POC Glucose 223 H 236 H 164 H Calcium Phosphorus Magnesium AST C-Reactive Protein Total Protein Albumin Lipase Vitamin B12 TSH Urine WBC (Auto) Urine Chloride Urine Total Protein Crossmatch 10/15/16 10/15/16 10/15/16 19:14 20:31 21:23 WBC RBC Hgb Hct MCV RDW Plt Count Lymph % (Auto) Maries % (Auto) Maries # Seg Neutrophils % Seg Neuts % (Manual) Lymphocytes % (Manual) Monocytes % (Manual) Seg Neutrophils # Seg Neutrophils # Man Lymphocytes # (Manual) Monocytes # (Manual) Eosinophils # (Manual) Basophils # (Manual) PT INR APTT Heparin Anti-Xa Level POC ABG pH POC ABG pCO2 POC ABG pO2 Sodium Potassium Chloride Carbon Dioxide BUN Creatinine Glucose POC Glucose 138 H 158 H 158 H Calcium Phosphorus Magnesium AST C-Reactive Protein Total Protein Albumin Lipase Vitamin B12 TSH Urine WBC (Auto) Urine Chloride Urine Total Protein Crossmatch 10/15/16 10/15/16 10/16/16 22:04 22:57 00:11 WBC RBC Hgb Hct MCV RDW Plt Count Lymph % (Auto) Maries % (Auto) Maries # Seg Neutrophils % Seg Neuts % (Manual) Lymphocytes % (Manual) Monocytes % (Manual) Seg Neutrophils # Seg Neutrophils # Man Lymphocytes # (Manual) Monocytes # (Manual) Eosinophils # (Manual) Basophils # (Manual) PT INR APTT Heparin Anti-Xa Level POC ABG pH POC ABG pCO2 POC ABG pO2 Sodium Potassium Chloride Carbon Dioxide BUN Creatinine Glucose POC Glucose 168 H 213 H 166 H Calcium Phosphorus Magnesium AST C-Reactive Protein Total Protein Albumin Lipase Vitamin B12 TSH Urine WBC (Auto) Urine Chloride Urine Total Protein Crossmatch 10/16/16 10/16/16 10/16/16 01:16 02:32 03:38 WBC RBC Hgb Hct MCV RDW Plt Count Lymph % (Auto) Maries % (Auto) Maries # Seg Neutrophils % Seg Neuts % (Manual) Lymphocytes % (Manual) Monocytes % (Manual) Seg Neutrophils # Seg Neutrophils # Man Lymphocytes # (Manual) Monocytes # (Manual) Eosinophils # (Manual) Basophils # (Manual) PT INR APTT Heparin Anti-Xa Level POC ABG pH POC ABG pCO2 POC ABG pO2 Sodium Potassium Chloride Carbon Dioxide BUN Creatinine Glucose POC Glucose 171 H 164 H 147 H Calcium Phosphorus Magnesium AST C-Reactive Protein Total Protein Albumin Lipase Vitamin B12 TSH Urine WBC (Auto) Urine Chloride Urine Total Protein Crossmatch 10/16/16 10/16/16 10/16/16 04:14 04:14 04:49 WBC RBC Hgb Hct MCV RDW Plt Count Lymph % (Auto) Maries % (Auto) Maries # Seg Neutrophils % Seg Neuts % (Manual) Lymphocytes % (Manual) Monocytes % (Manual) Seg Neutrophils # Seg Neutrophils # Man Lymphocytes # (Manual) Monocytes # (Manual) Eosinophils # (Manual) Basophils # (Manual) PT INR APTT Heparin Anti-Xa Level POC ABG pH POC ABG pCO2 POC ABG pO2 Sodium 147 H Potassium Chloride 110.9 H Carbon Dioxide 19 L BUN Creatinine Glucose 139 H POC Glucose 144 H Calcium 7.3 L Phosphorus 2.3 L Magnesium AST C-Reactive Protein Total Protein Albumin Lipase 143 H Vitamin B12 TSH Urine WBC (Auto) Urine Chloride Urine Total Protein Crossmatch 10/16/16 10/16/16 10/16/16 05:03 05:41 05:58 WBC 16.5 H RBC 3.36 L Hgb Hct MCV 98 H RDW 13.1 L Plt Count Lymph % (Auto) 8.5 L Maries % (Auto) 7.6 H Maries # 1.3 H Seg Neutrophils % 83.3 H Seg Neuts % (Manual) Lymphocytes % (Manual) Monocytes % (Manual) Seg Neutrophils # 13.8 H Seg Neutrophils # Man Lymphocytes # (Manual) Monocytes # (Manual) Eosinophils # (Manual) Basophils # (Manual) PT INR APTT Heparin Anti-Xa Level POC ABG pH POC ABG pCO2 30.7 L POC ABG pO2 128 H Sodium Potassium Chloride Carbon Dioxide BUN Creatinine Glucose POC Glucose 131 H Calcium Phosphorus Magnesium AST C-Reactive Protein Total Protein Albumin Lipase Vitamin B12 TSH Urine WBC (Auto) Urine Chloride Urine Total Protein Crossmatch 10/16/16 10/16/16 10/16/16 06:32 09:27 09:35 WBC RBC Hgb Hct MCV RDW Plt Count Lymph % (Auto) Maries % (Auto) Maries # Seg Neutrophils % Seg Neuts % (Manual) Lymphocytes % (Manual) Monocytes % (Manual) Seg Neutrophils # Seg Neutrophils # Man Lymphocytes # (Manual) Monocytes # (Manual) Eosinophils # (Manual) Basophils # (Manual) PT INR APTT Heparin Anti-Xa Level POC ABG pH POC ABG pCO2 32.8 L POC ABG pO2 137 H Sodium Potassium Chloride Carbon Dioxide BUN Creatinine Glucose POC Glucose 121 H 150 H Calcium Phosphorus Magnesium AST C-Reactive Protein Total Protein Albumin Lipase Vitamin B12 TSH Urine WBC (Auto) Urine Chloride Urine Total Protein Crossmatch 10/16/16 10/16/16 10/16/16 10:47 13:27 14:24 WBC RBC Hgb Hct MCV RDW Plt Count Lymph % (Auto) [place] % (Auto) [place] # Seg Neutrophils % Seg Neuts % (Manual) Lymphocytes % (Manual) Monocytes % (Manual) Seg Neutrophils # Seg Neutrophils # Man Lymphocytes # (Manual) Monocytes # (Manual) Eosinophils # (Manual) Basophils # (Manual) PT INR APTT Heparin Anti-Xa Level POC ABG pH POC ABG pCO2 POC ABG pO2 Sodium Potassium Chloride Carbon Dioxide BUN Creatinine Glucose POC Glucose 184 H 171 H 174 H Calcium Phosphorus Magnesium AST C-Reactive Protein Total Protein Albumin Lipase Vitamin B12 TSH Urine WBC (Auto) Urine Chloride Urine Total Protein Crossmatch 10/16/16 10/16/16 10/16/16 15:48 16:26 18:17 WBC RBC Hgb Hct MCV RDW Plt Count Lymph % (Auto) [place] % (Auto) [place] # Seg Neutrophils % Seg Neuts % (Manual) Lymphocytes % (Manual) Monocytes % (Manual) Seg Neutrophils # Seg Neutrophils # Man Lymphocytes # (Manual) Monocytes # (Manual) Eosinophils # (Manual) Basophils # (Manual) PT INR APTT Heparin Anti-Xa Level POC ABG pH POC ABG pCO2 POC ABG pO2 Sodium Potassium Chloride Carbon Dioxide BUN Creatinine Glucose POC Glucose 205 H 204 H 234 H Calcium Phosphorus Magnesium AST C-Reactive Protein Total Protein Albumin Lipase Vitamin B12 TSH Urine WBC (Auto) Urine Chloride Urine Total Protein Crossmatch 10/16/16 10/16/16 10/16/16 19:40 20:33 21:36 WBC RBC Hgb Hct MCV RDW Plt Count Lymph % (Auto) [place] % (Auto) [place] # Seg Neutrophils % Seg Neuts % (Manual) Lymphocytes % (Manual) Monocytes % (Manual) Seg Neutrophils # Seg Neutrophils # Man Lymphocytes # (Manual) Monocytes # (Manual) Eosinophils # (Manual) Basophils # (Manual) PT INR APTT Heparin Anti-Xa Level POC ABG pH POC ABG pCO2 POC ABG pO2 Sodium Potassium Chloride Carbon Dioxide BUN Creatinine Glucose POC Glucose 167 H 153 H 158 H Calcium Phosphorus Magnesium AST C-Reactive Protein Total Protein Albumin Lipase Vitamin B12 TSH Urine WBC (Auto) Urine Chloride Urine Total Protein Crossmatch 10/16/16 10/16/16 10/17/16 22:54 23:48 00:47 WBC RBC Hgb Hct MCV RDW Plt Count Lymph % (Auto) [place] % (Auto) [place] # Seg Neutrophils % Seg Neuts % (Manual) Lymphocytes % (Manual) Monocytes % (Manual) Seg Neutrophils # Seg Neutrophils # Man Lymphocytes # (Manual) Monocytes # (Manual) Eosinophils # (Manual) Basophils # (Manual) PT INR APTT Heparin Anti-Xa Level POC ABG pH POC ABG pCO2 POC ABG pO2 Sodium Potassium Chloride Carbon Dioxide BUN Creatinine Glucose POC Glucose 180 H 207 H 196 H Calcium Phosphorus Magnesium AST C-Reactive Protein Total Protein Albumin Lipase Vitamin B12 TSH Urine WBC (Auto) Urine Chloride Urine Total Protein Crossmatch 10/17/16 10/17/16 10/17/16 01:57 02:49 03:50 WBC RBC Hgb Hct MCV RDW Plt Count Lymph % (Auto) [place] % (Auto) [place] # Seg Neutrophils % Seg Neuts % (Manual) Lymphocytes % (Manual) Monocytes % (Manual) Seg Neutrophils # Seg Neutrophils # Man Lymphocytes # (Manual) Monocytes # (Manual) Eosinophils # (Manual) Basophils # (Manual) PT INR APTT Heparin Anti-Xa Level POC ABG pH POC ABG pCO2 POC ABG pO2 Sodium Potassium Chloride Carbon Dioxide BUN Creatinine Glucose POC Glucose 180 H 151 H 106 H Calcium Phosphorus Magnesium AST C-Reactive Protein Total Protein Albumin Lipase Vitamin B12 TSH Urine WBC (Auto) Urine Chloride Urine Total Protein Crossmatch 10/17/16 10/17/16 10/17/16 04:59 06:03 06:35 WBC RBC Hgb Hct MCV RDW Plt Count Lymph % (Auto) [place] % (Auto) [place] # Seg Neutrophils % Seg Neuts % (Manual) Lymphocytes % (Manual) Monocytes % (Manual) Seg Neutrophils # Seg Neutrophils # Man Lymphocytes # (Manual) Monocytes # (Manual) Eosinophils # (Manual) Basophils # (Manual) PT INR APTT Heparin Anti-Xa Level POC ABG pH 7.453 H POC ABG pCO2 30.1 L POC ABG pO2 111 H Sodium Potassium Chloride Carbon Dioxide BUN Creatinine Glucose POC Glucose 145 H 157 H Calcium Phosphorus Magnesium AST C-Reactive Protein Total Protein Albumin Lipase Vitamin B12 TSH Urine WBC (Auto) Urine Chloride Urine Total Protein Crossmatch 10/17/16 10/17/16 10/17/16 07:08 07:11 08:01 WBC RBC Hgb Hct MCV RDW Plt Count Lymph % (Auto) [place] % (Auto) [place] # Seg Neutrophils % Seg Neuts % (Manual) Lymphocytes % (Manual) Monocytes % (Manual) Seg Neutrophils # Seg Neutrophils # Man Lymphocytes # (Manual) Monocytes # (Manual) Eosinophils # (Manual) Basophils # (Manual) PT INR APTT Heparin Anti-Xa Level POC ABG pH POC ABG pCO2 POC ABG pO2 Sodium 147 H Potassium Chloride 113.8 H Carbon Dioxide 19 L BUN Creatinine Glucose 136 H POC Glucose 136 H 152 H Calcium 7.7 L Phosphorus Magnesium AST C-Reactive Protein Total Protein Albumin Lipase Vitamin B12 TSH Urine WBC (Auto) Urine Chloride Urine Total Protein Crossmatch 10/17/16 10/17/16 10/17/16 08:23 09:17 09:53 WBC 18.1 H RBC 3.01 L Hgb 9.7 L Hct 29.4 L MCV 98 H RDW Plt Count 116 L Lymph % (Auto) [place] % (Auto) Maries # Seg Neutrophils % Seg Neuts % (Manual) 77.0 H Lymphocytes % (Manual) 4.0 L Monocytes % (Manual) 12.0 H Seg Neutrophils # Seg Neutrophils # Man 13.9 H Lymphocytes # (Manual) 0.7 L Monocytes # (Manual) 2.2 H Eosinophils # (Manual) Basophils # (Manual) PT INR APTT Heparin Anti-Xa Level POC ABG pH POC ABG pCO2 POC ABG pO2 Sodium Potassium Chloride Carbon Dioxide BUN Creatinine Glucose POC Glucose 148 H 137 H Calcium Phosphorus Magnesium AST C-Reactive Protein Total Protein Albumin Lipase Vitamin B12 TSH Urine WBC (Auto) Urine Chloride Urine Total Protein Crossmatch 10/17/16 10/17/16 10/17/16 11:43 16:07 17:42 WBC RBC Hgb Hct MCV RDW Plt Count Lymph % (Auto) [place] % (Auto) [place] # Seg Neutrophils % Seg Neuts % (Manual) Lymphocytes % (Manual) Monocytes % (Manual) Seg Neutrophils # Seg Neutrophils # Man Lymphocytes # (Manual) Monocytes # (Manual) Eosinophils # (Manual) Basophils # (Manual) PT 16.4 H INR 1.33 H APTT 38.8 H Heparin Anti-Xa Level POC ABG pH POC ABG pCO2 POC ABG pO2 Sodium Potassium Chloride Carbon Dioxide BUN Creatinine Glucose POC Glucose 179 H 153 H Calcium Phosphorus Magnesium AST C-Reactive Protein Total Protein Albumin Lipase Vitamin B12 TSH Urine WBC (Auto) Urine Chloride Urine Total Protein Crossmatch 10/17/16 10/18/16 10/18/16 22:54 04:37 05:39 WBC RBC Hgb Hct MCV RDW Plt Count Lymph % (Auto) [place] % (Auto) [place] # Seg Neutrophils % Seg Neuts % (Manual) Lymphocytes % (Manual) Monocytes % (Manual) Seg Neutrophils # Seg Neutrophils # Man Lymphocytes # (Manual) Monocytes # (Manual) Eosinophils # (Manual) Basophils # (Manual) PT INR APTT Heparin Anti-Xa Level 0.27 L POC ABG pH 7.454 H POC ABG pCO2 30.8 L POC ABG pO2 115 H Sodium Potassium Chloride Carbon Dioxide BUN Creatinine Glucose POC Glucose 69 L Calcium Phosphorus Magnesium AST C-Reactive Protein Total Protein Albumin Lipase Vitamin B12 TSH Urine WBC (Auto) Urine Chloride Urine Total Protein Crossmatch 10/18/16 10/18/16 10/18/16 06:46 06:46 06:46 WBC 20.5 H RBC 2.62 L Hgb 8.4 L Hct 26.0 L MCV 100 H RDW Plt Count Lymph % (Auto) [place] % (Auto) [place]ies # Seg Neutrophils % Seg Neuts % (Manual) 75.0 H Lymphocytes % (Manual) 9.0 L Monocytes % (Manual) 14.0 H Seg Neutrophils # Seg Neutrophils # Man 15.4 H Lymphocytes # (Manual) Monocytes # (Manual) 2.9 H Eosinophils # (Manual) Basophils # (Manual) PT INR APTT Heparin Anti-Xa Level POC ABG pH POC ABG pCO2 POC ABG pO2 Sodium Potassium Chloride 110.6 H Carbon Dioxide BUN Creatinine 1.3 H Glucose 153 H POC Glucose Calcium 8.0 L Phosphorus Magnesium 1.6 L AST C-Reactive Protein Total Protein Albumin Lipase Vitamin B12 TSH Urine WBC (Auto) Urine Chloride Urine Total Protein Crossmatch 10/18/16 10/18/16 10/18/16 07:30 11:37 17:51 WBC RBC Hgb Hct MCV RDW Plt Count Lymph % (Auto) [place] % (Auto) [place] # Seg Neutrophils % Seg Neuts % (Manual) Lymphocytes % (Manual) Monocytes % (Manual) Seg Neutrophils # Seg Neutrophils # Man Lymphocytes # (Manual) Monocytes # (Manual) Eosinophils # (Manual) Basophils # (Manual) PT INR APTT Heparin Anti-Xa Level POC ABG pH POC ABG pCO2 POC ABG pO2 Sodium Potassium Chloride Carbon Dioxide BUN Creatinine Glucose POC Glucose 162 H 156 H 164 H Calcium Phosphorus Magnesium AST C-Reactive Protein Total Protein Albumin Lipase Vitamin B12 TSH Urine WBC (Auto) Urine Chloride Urine Total Protein Crossmatch 10/18/16 10/19/16 10/19/16 23:44 03:59 05:13 WBC 18.2 H RBC 2.76 L Hgb 9.0 L Hct 27.7 L MCV 100 H RDW Plt Count Lymph % (Auto) [place] % (Auto) [place] # Seg Neutrophils % Seg Neuts % (Manual) 76.0 H Lymphocytes % (Manual) 10.0 L Monocytes % (Manual) Seg Neutrophils # Seg Neutrophils # Man 13.8 H Lymphocytes # (Manual) Monocytes # (Manual) Eosinophils # (Manual) Basophils # (Manual) PT INR APTT Heparin Anti-Xa Level POC ABG pH POC ABG pCO2 32.2 L POC ABG pO2 128 H Sodium Potassium Chloride Carbon Dioxide BUN Creatinine Glucose POC Glucose 278 H Calcium Phosphorus Magnesium AST C-Reactive Protein Total Protein Albumin Lipase Vitamin B12 TSH Urine WBC (Auto) Urine Chloride Urine Total Protein Crossmatch 10/19/16 10/19/16 10/19/16 06:01 06:30 12:20 WBC RBC Hgb Hct MCV RDW Plt Count Lymph % (Auto) [place] % (Auto) [place] # Seg Neutrophils % Seg Neuts % (Manual) Lymphocytes % (Manual) Monocytes % (Manual) Seg Neutrophils # Seg Neutrophils # Man Lymphocytes # (Manual) Monocytes # (Manual) Eosinophils # (Manual) Basophils # (Manual) PT INR APTT Heparin Anti-Xa Level POC ABG pH POC ABG pCO2 POC ABG pO2 Sodium Potassium Chloride Carbon Dioxide 18 L BUN Creatinine 1.3 H Glucose 262 H POC Glucose 261 H 349 H Calcium 7.7 L Phosphorus 4.8 H D Magnesium AST C-Reactive Protein Total Protein Albumin Lipase Vitamin B12 TSH Urine WBC (Auto) Urine Chloride Urine Total Protein Crossmatch 10/19/16 10/20/16 10/20/16 16:48 00:17 05:20 WBC 22.5 H RBC 2.80 L Hgb 8.9 L Hct 28.3 L MCV 101 H RDW Plt Count Lymph % (Auto) [place] % (Auto) [place] # Seg Neutrophils % Seg Neuts % (Manual) Lymphocytes % (Manual) 10.0 L Monocytes % (Manual) Seg Neutrophils # Seg Neutrophils # Man 13.3 H Lymphocytes # (Manual) Monocytes # (Manual) 1.1 H Eosinophils # (Manual) 0.7 H Basophils # (Manual) PT INR APTT Heparin Anti-Xa Level POC ABG pH POC ABG pCO2 POC ABG pO2 Sodium Potassium Chloride Carbon Dioxide BUN Creatinine Glucose POC Glucose 248 H 346 H Calcium Phosphorus Magnesium AST C-Reactive Protein Total Protein Albumin Lipase Vitamin B12 TSH Urine WBC (Auto) Urine Chloride Urine Total Protein Crossmatch 10/20/16 10/20/16 10/20/16 05:20 05:20 06:05 WBC RBC Hgb Hct MCV RDW Plt Count Lymph % (Auto) [place] % (Auto) [place] # Seg Neutrophils % Seg Neuts % (Manual) Lymphocytes % (Manual) Monocytes % (Manual) Seg Neutrophils # Seg Neutrophils # Man Lymphocytes # (Manual) Monocytes # (Manual) Eosinophils # (Manual) Basophils # (Manual) PT INR APTT Heparin Anti-Xa Level 0.20 L POC ABG pH POC ABG pCO2 POC ABG pO2 Sodium Potassium Chloride Carbon Dioxide BUN 20 H Creatinine Glucose 374 H POC Glucose 337 H Calcium 8.3 L Phosphorus Magnesium AST C-Reactive Protein Total Protein Albumin Lipase Vitamin B12 TSH Urine WBC (Auto) Urine Chloride Urine Total Protein Crossmatch 10/20/16 10/20/16 10/20/16 11:49 13:59 17:56 WBC RBC Hgb Hct MCV RDW Plt Count Lymph % (Auto) [place] % (Auto) [place] # Seg Neutrophils % Seg Neuts % (Manual) Lymphocytes % (Manual) Monocytes % (Manual) Seg Neutrophils # Seg Neutrophils # Man Lymphocytes # (Manual) Monocytes # (Manual) Eosinophils # (Manual) Basophils # (Manual) PT INR APTT Heparin Anti-Xa Level 2.00 H POC ABG pH POC ABG pCO2 POC ABG pO2 Sodium Potassium Chloride Carbon Dioxide BUN Creatinine Glucose POC Glucose 305 H 362 H Calcium Phosphorus Magnesium AST C-Reactive Protein Total Protein Albumin Lipase Vitamin B12 TSH Urine WBC (Auto) Urine Chloride Urine Total Protein Crossmatch 10/20/16 10/21/16 10/21/16 23:52 05:00 05:49 WBC 22.9 H RBC 2.49 L Hgb 7.7 L Hct 25.6 L MCV 103 H RDW Plt Count Lymph % (Auto) [place] % (Auto) [place] # Seg Neutrophils % Seg Neuts % (Manual) 94.0 H Lymphocytes % (Manual) 1.0 L Monocytes % (Manual) Seg Neutrophils # Seg Neutrophils # Man 21.5 H Lymphocytes # (Manual) 0.2 L Monocytes # (Manual) 1.1 H Eosinophils # (Manual) Basophils # (Manual) PT INR APTT Heparin Anti-Xa Level POC ABG pH POC ABG pCO2 POC ABG pO2 Sodium Potassium Chloride Carbon Dioxide BUN Creatinine Glucose POC Glucose 252 H 180 H Calcium Phosphorus Magnesium AST C-Reactive Protein Total Protein Albumin Lipase Vitamin B12 TSH Urine WBC (Auto) Urine Chloride Urine Total Protein Crossmatch 10/21/16 10/21/16 10/21/16 11:47 11:49 14:10 WBC RBC Hgb Hct MCV RDW Plt Count Lymph % (Auto) [place] % (Auto) [place] # Seg Neutrophils % Seg Neuts % (Manual) Lymphocytes % (Manual) Monocytes % (Manual) Seg Neutrophils # Seg Neutrophils # Man Lymphocytes # (Manual) Monocytes # (Manual) Eosinophils # (Manual) Basophils # (Manual) PT INR APTT Heparin Anti-Xa Level POC ABG pH POC ABG pCO2 POC ABG pO2 Sodium Potassium Chloride Carbon Dioxide BUN Creatinine Glucose POC Glucose 50 L 56 L 140 H Calcium Phosphorus Magnesium AST C-Reactive Protein Total Protein Albumin Lipase Vitamin B12 TSH Urine WBC (Auto) Urine Chloride Urine Total Protein Crossmatch 10/21/16 10/21/16 10/22/16 18:24 Unknown 00:07 WBC RBC Hgb Hct MCV RDW Plt Count Lymph % (Auto) [place] % (Auto) [place] # Seg Neutrophils % Seg Neuts % (Manual) Lymphocytes % (Manual) Monocytes % (Manual) Seg Neutrophils # Seg Neutrophils # Man Lymphocytes # (Manual) Monocytes # (Manual) Eosinophils # (Manual) Basophils # (Manual) PT INR APTT Heparin Anti-Xa Level POC ABG pH POC ABG pCO2 POC ABG pO2 Sodium 150 H Potassium 3.1 L Chloride 112.4 H Carbon Dioxide BUN 25 H Creatinine 1.4 H Glucose POC Glucose 175 H 218 H Calcium 8.0 L Phosphorus Magnesium AST C-Reactive Protein Total Protein Albumin Lipase Vitamin B12 TSH Urine WBC (Auto) Urine Chloride Urine Total Protein Crossmatch 10/22/16 10/22/16 10/22/16 04:20 04:20 10:25 WBC 20.8 H RBC 2.37 L Hgb 7.5 L Hct 23.9 L MCV 101 H RDW Plt Count Lymph % (Auto) [place] % (Auto) [place] # Seg Neutrophils % Seg Neuts % (Manual) 89.0 H Lymphocytes % (Manual) 7.0 L Monocytes % (Manual) Seg Neutrophils # Seg Neutrophils # Man 18.5 H Lymphocytes # (Manual) Monocytes # (Manual) Eosinophils # (Manual) Basophils # (Manual) 0.2 H PT INR APTT Heparin Anti-Xa Level POC ABG pH POC ABG pCO2 POC ABG pO2 Sodium 148 H Potassium 2.9 L* Chloride 109.4 H Carbon Dioxide BUN 26 H Creatinine Glucose 140 H POC Glucose Calcium 7.5 L Phosphorus Magnesium AST C-Reactive Protein Total Protein Albumin Lipase Vitamin B12 976.8 H TSH Urine WBC (Auto) Urine Chloride Urine Total Protein Crossmatch 10/22/16 10/22/16 10/22/16 10:25 14:50 18:16 WBC RBC Hgb Hct MCV RDW Plt Count Lymph % (Auto) [place] % (Auto) [place] # Seg Neutrophils % Seg Neuts % (Manual) Lymphocytes % (Manual) Monocytes % (Manual) Seg Neutrophils # Seg Neutrophils # Man Lymphocytes # (Manual) Monocytes # (Manual) Eosinophils # (Manual) Basophils # (Manual) PT INR APTT Heparin Anti-Xa Level POC ABG pH POC ABG pCO2 POC ABG pO2 Sodium Potassium Chloride Carbon Dioxide BUN Creatinine Glucose POC Glucose 193 H Calcium Phosphorus Magnesium AST C-Reactive Protein Total Protein Albumin Lipase Vitamin B12 TSH 0.143 L 0.162 L Urine WBC (Auto) Urine Chloride Urine Total Protein Crossmatch 10/22/16 10/22/16 10/22/16 20:00 20:00 20:00 WBC 24.1 H RBC 2.58 L Hgb 8.2 L Hct 26.4 L MCV 102 H RDW Plt Count Lymph % (Auto) [place] % (Auto) [place] # Seg Neutrophils % Seg Neuts % (Manual) 74.0 H Lymphocytes % (Manual) 7.0 L Monocytes % (Manual) Seg Neutrophils # Seg Neutrophils # Man 17.8 H Lymphocytes # (Manual) Monocytes # (Manual) Eosinophils # (Manual) Basophils # (Manual) PT INR APTT Heparin Anti-Xa Level 1.92 H POC ABG pH POC ABG pCO2 POC ABG pO2 Sodium Potassium Chloride Carbon Dioxide BUN Creatinine Glucose POC Glucose Calcium Phosphorus Magnesium AST C-Reactive Protein Total Protein Albumin Lipase Vitamin B12 TSH Urine WBC (Auto) Urine Chloride Urine Total Protein Crossmatch See Detail 10/23/16 10/23/16 10/23/16 00:21 06:09 12:07 WBC RBC Hgb Hct MCV RDW Plt Count Lymph % (Auto) [place] % (Auto) [place] # Seg Neutrophils % Seg Neuts % (Manual) Lymphocytes % (Manual) Monocytes % (Manual) Seg Neutrophils # Seg Neutrophils # Man Lymphocytes # (Manual) Monocytes # (Manual) Eosinophils # (Manual) Basophils # (Manual) PT INR APTT Heparin Anti-Xa Level POC ABG pH POC ABG pCO2 POC ABG pO2 Sodium Potassium Chloride Carbon Dioxide BUN Creatinine Glucose POC Glucose 283 H 241 H 340 H Calcium Phosphorus Magnesium AST C-Reactive Protein Total Protein Albumin Lipase Vitamin B12 TSH Urine WBC (Auto) Urine Chloride Urine Total Protein Crossmatch 10/23/16 10/23/16 10/23/16 14:01 16:00 17:59 WBC RBC Hgb Hct MCV RDW Plt Count Lymph % (Auto) [place] % (Auto) [place] # Seg Neutrophils % Seg Neuts % (Manual) Lymphocytes % (Manual) Monocytes % (Manual) Seg Neutrophils # Seg Neutrophils # Man Lymphocytes # (Manual) Monocytes # (Manual) Eosinophils # (Manual) Basophils # (Manual) PT INR APTT Heparin Anti-Xa Level 0.19 L POC ABG pH POC ABG pCO2 32.4 L POC ABG pO2 Sodium Potassium Chloride Carbon Dioxide BUN Creatinine Glucose POC Glucose 245 H Calcium Phosphorus Magnesium AST C-Reactive Protein Total Protein Albumin Lipase Vitamin B12 TSH Urine WBC (Auto) Urine Chloride Urine Total Protein Crossmatch 10/23/16 10/23/16 10/23/16 22:55 Unknown Unknown WBC 22.6 H RBC 3.26 L Hgb Hct MCV RDW 17.1 H Plt Count Lymph % (Auto) [place] % (Auto) [place] # Seg Neutrophils % Seg Neuts % (Manual) Lymphocytes % (Manual) 11.0 L Monocytes % (Manual) Seg Neutrophils # Seg Neutrophils # Man 14.0 H Lymphocytes # (Manual) Monocytes # (Manual) Eosinophils # (Manual) Basophils # (Manual) PT INR APTT Heparin Anti-Xa Level 0.17 L 0.15 L POC ABG pH POC ABG pCO2 POC ABG pO2 Sodium Potassium Chloride Carbon Dioxide BUN Creatinine Glucose POC Glucose Calcium Phosphorus Magnesium AST C-Reactive Protein Total Protein Albumin Lipase Vitamin B12 TSH Urine WBC (Auto) Urine Chloride Urine Total Protein Crossmatch 10/23/16 10/24/16 10/24/16 Unknown 00:05 05:30 WBC RBC Hgb Hct MCV RDW Plt Count Lymph % (Auto) [place] % (Auto) [place] # Seg Neutrophils % Seg Neuts % (Manual) Lymphocytes % (Manual) Monocytes % (Manual) Seg Neutrophils # Seg Neutrophils # Man Lymphocytes # (Manual) Monocytes # (Manual) Eosinophils # (Manual) Basophils # (Manual) PT INR APTT Heparin Anti-Xa Level 0.13 L POC ABG pH POC ABG pCO2 POC ABG pO2 Sodium Potassium Chloride 111.2 H Carbon Dioxide 20 L BUN 25 H Creatinine Glucose 227 H POC Glucose 118 H Calcium 7.1 L Phosphorus Magnesium AST C-Reactive Protein Total Protein Albumin Lipase Vitamin B12 TSH Urine WBC (Auto) Urine Chloride Urine Total Protein Crossmatch 10/24/16 10/24/16 10/24/16 11:00 11:00 12:06 WBC 17.6 H RBC 2.92 L Hgb 9.2 L Hct 28.3 L MCV RDW 16.9 H Plt Count Lymph % (Auto) [place] % (Auto) [place] # Seg Neutrophils % Seg Neuts % (Manual) Lymphocytes % (Manual) Monocytes % (Manual) Seg Neutrophils # Seg Neutrophils # Man Lymphocytes # (Manual) Monocytes # (Manual) Eosinophils # (Manual) Basophils # (Manual) PT INR APTT Heparin Anti-Xa Level 0.27 L POC ABG pH POC ABG pCO2 POC ABG pO2 Sodium Potassium Chloride Carbon Dioxide BUN Creatinine Glucose POC Glucose 166 H Calcium Phosphorus Magnesium AST C-Reactive Protein Total Protein Albumin Lipase Vitamin B12 TSH Urine WBC (Auto) Urine Chloride Urine Total Protein Crossmatch 10/24/16 10/25/16 10/25/16 12:27 00:49 03:30 WBC RBC Hgb 8.8 L Hct 28.1 L MCV RDW Plt Count Lymph % (Auto) [place] % (Auto) [place] # Seg Neutrophils % Seg Neuts % (Manual) Lymphocytes % (Manual) Monocytes % (Manual) Seg Neutrophils # Seg Neutrophils # Man Lymphocytes # (Manual) Monocytes # (Manual) Eosinophils # (Manual) Basophils # (Manual) PT INR APTT Heparin Anti-Xa Level POC ABG pH POC ABG pCO2 33.9 L POC ABG pO2 Sodium Potassium Chloride Carbon Dioxide BUN Creatinine Glucose POC Glucose 121 H Calcium Phosphorus Magnesium AST C-Reactive Protein Total Protein Albumin Lipase Vitamin B12 TSH Urine WBC (Auto) Urine Chloride Urine Total Protein Crossmatch 10/25/16 10/25/16 10/25/16 09:49 12:10 19:25 WBC 21.1 H RBC 3.02 L Hgb 9.3 L Hct 28.9 L MCV RDW 16.3 H Plt Count Lymph % (Auto) [place] % (Auto) [place] # Seg Neutrophils % Seg Neuts % (Manual) 81.0 H Lymphocytes % (Manual) 9.0 L Monocytes % (Manual) Seg Neutrophils # Seg Neutrophils # Man 17.1 H Lymphocytes # (Manual) Monocytes # (Manual) Eosinophils # (Manual) Basophils # (Manual) PT INR APTT Heparin Anti-Xa Level POC ABG pH POC ABG pCO2 POC ABG pO2 Sodium Potassium Chloride Carbon Dioxide BUN Creatinine Glucose POC Glucose 158 H 151 H Calcium Phosphorus Magnesium AST C-Reactive Protein Total Protein Albumin Lipase Vitamin B12 TSH Urine WBC (Auto) Urine Chloride Urine Total Protein Crossmatch 10/26/16 10/26/16 10/26/16 00:20 01:09 05:02 WBC 22.2 H RBC 2.89 L Hgb 8.7 L Hct 27.8 L MCV RDW 16.4 H Plt Count Lymph % (Auto) [place] % (Auto) [place] # Seg Neutrophils % Seg Neuts % (Manual) Lymphocytes % (Manual) Monocytes % (Manual) Seg Neutrophils # Seg Neutrophils # Man Lymphocytes # (Manual) Monocytes # (Manual) Eosinophils # (Manual) Basophils # (Manual) PT INR APTT Heparin Anti-Xa Level POC ABG pH POC ABG pCO2 POC ABG pO2 Sodium Potassium Chloride Carbon Dioxide BUN Creatinine Glucose POC Glucose 44 L 112 H Calcium Phosphorus Magnesium AST C-Reactive Protein Total Protein Albumin Lipase Vitamin B12 TSH Urine WBC (Auto) Urine Chloride Urine Total Protein Crossmatch 10/26/16 10/26/16 10/26/16 05:02 12:11 12:14 WBC RBC Hgb Hct MCV RDW Plt Count Lymph % (Auto) [place] % (Auto) [place] # Seg Neutrophils % Seg Neuts % (Manual) Lymphocytes % (Manual) Monocytes % (Manual) Seg Neutrophils # Seg Neutrophils # Man Lymphocytes # (Manual) Monocytes # (Manual) Eosinophils # (Manual) Basophils # (Manual) PT INR APTT Heparin Anti-Xa Level POC ABG pH POC ABG pCO2 32.0 L POC ABG pO2 33 L Sodium Potassium 3.2 L D Chloride Carbon Dioxide 20 L BUN 24 H Creatinine Glucose 104 H POC Glucose 194 H Calcium 7.7 L Phosphorus Magnesium AST C-Reactive Protein Total Protein Albumin Lipase Vitamin B12 TSH Urine WBC (Auto) Urine Chloride Urine Total Protein Crossmatch 10/26/16 10/26/16 10/27/16 15:28 17:23 00:04 WBC RBC Hgb Hct MCV RDW Plt Count Lymph % (Auto) [place] % (Auto) [place] # Seg Neutrophils % Seg Neuts % (Manual) Lymphocytes % (Manual) Monocytes % (Manual) Seg Neutrophils # Seg Neutrophils # Man Lymphocytes # (Manual) Monocytes # (Manual) Eosinophils # (Manual) Basophils # (Manual) PT INR APTT Heparin Anti-Xa Level POC ABG pH POC ABG pCO2 33.7 L POC ABG pO2 Sodium Potassium Chloride Carbon Dioxide BUN Creatinine Glucose POC Glucose 181 H 230 H Calcium Phosphorus Magnesium AST C-Reactive Protein Total Protein Albumin Lipase Vitamin B12 TSH Urine WBC (Auto) Urine Chloride Urine Total Protein Crossmatch 10/27/16 10/27/16 10/27/16 05:15 05:15 05:38 WBC 25.5 H RBC 3.07 L Hgb 9.4 L Hct 30.1 L MCV 98 H RDW 16.4 H Plt Count 527 H Lymph % (Auto) [place] % (Auto) [place] # Seg Neutrophils % Seg Neuts % (Manual) Lymphocytes % (Manual) Monocytes % (Manual) Seg Neutrophils # Seg Neutrophils # Man Lymphocytes # (Manual) Monocytes # (Manual) Eosinophils # (Manual) Basophils # (Manual) PT INR APTT Heparin Anti-Xa Level POC ABG pH POC ABG pCO2 POC ABG pO2 Sodium Potassium Chloride Carbon Dioxide 19 L BUN 23 H Creatinine Glucose 160 H POC Glucose 168 H Calcium 8.0 L Phosphorus Magnesium AST C-Reactive Protein Total Protein Albumin Lipase Vitamin B12 TSH Urine WBC (Auto) Urine Chloride Urine Total Protein Crossmatch 10/27/16 11:59 WBC RBC Hgb Hct MCV RDW Plt Count Lymph % (Auto) [place] % (Auto) [place] # Seg Neutrophils % Seg Neuts % (Manual) Lymphocytes % (Manual) Monocytes % (Manual) Seg Neutrophils # Seg Neutrophils # Man Lymphocytes # (Manual) Monocytes # (Manual) Eosinophils # (Manual) Basophils # (Manual) PT INR APTT Heparin Anti-Xa Level POC ABG pH POC ABG pCO2 POC ABG pO2 Sodium Potassium Chloride Carbon Dioxide BUN Creatinine Glucose POC Glucose 197 H Calcium Phosphorus Magnesium AST C-Reactive Protein Total Protein Albumin Lipase Vitamin B12 TSH Urine WBC (Auto) Urine Chloride Urine Total Protein Crossmatch Chest x-ray: image reviewed Allied health notes reviewed: RT
--- NOTE | 2016-10-27 16:18 | Progress Note ---
Assessment and Plan Unable to locate/contact the to see if he has made a decision about the Trach/PEG Subjective Date of service: 10/27/16 Patient Reports: Positive: other (Unchanged) Objective Vital Signs - 12hr 10/27/16 10/27/16 10/27/16 05:00 05:40 06:00 Temperature Pulse Rate 111 H 121 H 119 H Pulse Rate [ Apical] Respiratory 20 21 Rate Blood Pressure 135/79 144/71 144/71 O2 Sat by Pulse 100 100 100 Oximetry 10/27/16 10/27/16 10/27/16 06:28 07:00 07:52 Temperature 101.4 F H Pulse Rate 116 H 111 H Pulse Rate [ Apical] Respiratory 15 Rate Blood Pressure 126/84 154/84 O2 Sat by Pulse 99 Oximetry 10/27/16 10/27/16 10/27/16 08:00 09:00 10:00 Temperature Pulse Rate 106 H 112 H 93 H Pulse Rate [ Apical] Respiratory 21 21 21 Rate Blood Pressure 132/69 131/59 141/65 O2 Sat by Pulse 98 100 99 Oximetry 10/27/16 10/27/16 10/27/16 10:50 11:00 12:00 Temperature 101.1 F H Pulse Rate 117 H 108 H Pulse Rate [ 106 H Apical] Respiratory 20 Rate Blood Pressure 152/71 141/65 O2 Sat by Pulse 99 98 99 Oximetry 10/27/16 15:54 Temperature 101.3 F H Pulse Rate Pulse Rate [ Apical] Respiratory Rate Blood Pressure O2 Sat by Pulse Oximetry - Labs 10/27/16 05:15 10/27/16 05:15 Diabetes panel 10/27/16 Range/Units 05:15 Sodium 140 (137-145) mmol/L Potassium 4.0 D (3.6-5.0) mmol/L Chloride 102.2 (98-107) mmol/L Carbon Dioxide 19 L (22-30) mmol/L BUN 23 H (7-17) mg/dL Creatinine 0.8 (0.7-1.2) mg/dL Glucose 160 H (65-100) mg/dL Calcium 8.0 L (8.4-10.2) mg/dL Calcium panel 10/27/16 Range/Units 05:15 Calcium 8.0 L (8.4-10.2) mg/dL Pituitary panel 10/27/16 Range/Units 05:15 Sodium 140 (137-145) mmol/L Potassium 4.0 D (3.6-5.0) mmol/L Chloride 102.2 (98-107) mmol/L Carbon Dioxide 19 L (22-30) mmol/L BUN 23 H (7-17) mg/dL Creatinine 0.8 (0.7-1.2) mg/dL Glucose 160 H (65-100) mg/dL Calcium 8.0 L (8.4-10.2) mg/dL Adrenal panel 10/27/16 Range/Units 05:15 Sodium 140 (137-145) mmol/L Potassium 4.0 D (3.6-5.0) mmol/L Chloride 102.2 (98-107) mmol/L Carbon Dioxide 19 L (22-30) mmol/L BUN 23 H (7-17) mg/dL Creatinine 0.8 (0.7-1.2) mg/dL Glucose 160 H (65-100) mg/dL Calcium 8.0 L (8.4-10.2) mg/dL
--- NOTE | 2016-10-27 20:21 | Progress Note ---
Subjective Date of service: 10/27/16 Principal diagnosis: respiratory failure on mechanical ventilatory support, DKA Interval history: nO NEW ISSUES. aWAKE. Vital signs - afebrile CHEST - GOOD [employer] ENTRY CVS - S1S2 ABD - BS_ LABS wbc 22. ASSESSMENT 1. Sepsis 2. dka 3. resp failure 4. htn 5. clostridium difficile colitis RECOMMENDATION 1. cbc/bmp in am 2. d/c aztreonam and fluconazole. Start clindamycin and levaquin 3. CT ABD/PELVIS Objective - Constitutional Vitals: Vital Signs Temp Pulse Resp BP Pulse Ox 101.3 F H 113 H 17 136/70 100 10/27/16 15:54 10/27/16 19:56 10/27/16 19:00 10/27/16 19:56 10/27/16 19:56 Temperature -Last 24 Hours Temperature 101.3 F Temperature 101.1 F Temperature 101.4 F Temperature 98 F Temperature 99.0 F - Labs CBC & Chem 7: 10/27/16 05:15 10/27/16 05:15 Labs: Abnormal lab results 10/26/16 10/26/16 10/27/16 Range/Units 12:14 17:23 00:04 WBC (4.5-11.0) K/mm3 RBC (3.65-5.03) M/mm3 Hgb (10.1-14.3) gm/dl Hct (30.3-42.9) % MCV (79-97) fl RDW (13.2-15.2) % Plt Count (140-440) K/mm3 Carbon Dioxide (22-30) mmol/L BUN (7-17) mg/dL Glucose (65-100) mg/dL POC Glucose 194 H 181 H 230 H (70-105) Calcium (8.4-10.2) mg/dL 10/27/16 10/27/16 10/27/16 Range/Units 05:15 05:15 05:38 WBC 25.5 H (4.5-11.0) K/mm3 RBC 3.07 L (3.65-5.03) M/mm3 Hgb 9.4 L (10.1-14.3) gm/dl Hct 30.1 L (30.3-42.9) % MCV 98 H (79-97) fl RDW 16.4 H (13.2-15.2) % Plt Count 527 H (140-440) K/mm3 Carbon Dioxide 19 L (22-30) mmol/L BUN 23 H (7-17) mg/dL Glucose 160 H (65-100) mg/dL POC Glucose 168 H (70-105) Calcium 8.0 L (8.4-10.2) mg/dL 10/27/16 10/27/16 Range/Units 11:59 18:35 WBC (4.5-11.0) K/mm3 RBC (3.65-5.03) M/mm3 Hgb (10.1-14.3) gm/dl Hct (30.3-42.9) % MCV (79-97) fl RDW (13.2-15.2) % Plt Count (140-440) K/mm3 Carbon Dioxide (22-30) mmol/L BUN (7-17) mg/dL Glucose (65-100) mg/dL POC Glucose 197 H 318 H (70-105) Calcium (8.4-10.2) mg/dL
[2016-10-27] MEDS: LEVAQUIN 750MG/150ML 750 MG/150 ML BAG IV SCH (23:49)
[2016-10-28] MEDS: fentaNYL DRIP Premix 2,000 MCG/100 ML BAG IV SCH ×4 (00:34→20:11)
[2016-10-28 05:13] LABS: Hematocrit 26.1 % (30.3-42.9); Hemoglobin 8.1 gm/dl (10.1-14.3); Mean Corpuscular HGB Conc 31 % (30-34); Mean Corpuscular Hemoglobin 31 pg (28-32); Mean Corpuscular Volume 99 fl (79-97); Platelet Count 544 K/mm3 (140-440); Red Blood Count 2.64 M/mm3 (3.65-5.03); Red Cell Distribution Width 16.2 % (13.2-15.2); White Blood Count 18.8 K/mm3 (4.5-11.0)
[2016-10-28 05:28] LABS: Anion Gap 21 mmol/L; Blood Urea Nitrogen 24 mg/dL (7-17); Calcium 7.7 mg/dL (8.4-10.2); Carbon Dioxide 21 mmol/L (22-30); Chloride 105.2 mmol/L (98-107); Glucose 302 mg/dL (65-100); Potassium 4.1 mmol/L (3.6-5.0); Sodium 143 mmol/L (137-145)
[2016-10-28] MEDS: LOPRESSOR FEEDTUBE SCH ×3 (05:39→22:39)
[2016-10-28] MEDS: FLAGYL PO SCH ×3 (05:39→22:35)
[2016-10-28] MEDS: TYLENOL FEEDTUBE PRN ×2 (09:34→16:39)
[2016-10-28] MEDS: VANCOMYCIN VIAL 1,250 MG in NACL 0.9% 250ML 250 ML IV SCH (09:34)
[2016-10-28] MEDS: PEPCID PO SCH ×2 (09:35→22:35)
[2016-10-28] MEDS: HEPARIN/ 0.45% NACL-25,000 UNIT/500 ML 25,000 UNITS/500 ML BAG IV SCH (10:39)
--- NOTE | 2016-10-28 12:52 | Progress Note ---
Assessment and Plan Assessment and plan: 66-year-old woman who presented with lethargy and altered mental status she deteriorated and was intubated and in emergency room, she was managed for DKA and she also developed sepsis due to UTI and right lower extremity ischemia 1. Acute respiratory failure with hypercapnia Continue ventilator, failed weaning trial. will plan for Trach and Peg-this has been discussed with the family by the surgeon. I also discussed with her today was at bedside. He is still thinking about it 2. Diabetes DKA has now resolved, continue SubQ insulin 3. Sepsis- Leukocytosis improved today- ?reactive Suspected due to UTI, urine has only grown Paula, sputum cultures grew group B strep, continue broad-spectrum antibiotics, infectious disease input appreciated 4. 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 Family has been updated. We'll continue to attempt to see if below the knee can be done as salvaged. Vascular consult noted too ill for any surgical intervention, continue heparin drip 5. Hypokalemia replete IV-we'll also give magnesium to help improve this. 6. Toxic metabolic encephalopathy- improved. 7. LUCY- present on admissions. likely vasomotor . resolved 8. Tachycardia- continue BB will add cardizem, if no improvement will add cardiology consultation 9. Anemia-no gross evidence of GI bleed. Patient didn't have any material. Ultrasound of the renal done on October 13 was negative. We'll monitor closely. As patient is also on heparin drip. 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 [facility] EVAL Critical care time 35 minutes History Interval history: Patient seen and examined, unable to wean from vent. Calm today but still not following commands appropriately.. No further adverse events reported to me. Hospitalist Physical - Physical exam Narrative exam: VITAL SIGNS: Reviewed. GENERAL: The patient appeared well nourished and normally developed. Vital signs as documented. HEAD: No signs of head trauma. EYES: Pupils are equal. Extraocular motions intact. EARS: Hearing grossly intact. MOUTH: ETT NECK: No adenopathy, no JVD. CHEST: Chest with diminshed CARDIAC: Regular rate and rhythm. S1 and S2, without murmurs, gallops, or rubs. VASCULAR: trace Edema. Peripheral pulses not palpable at the right lower ext ABDOMEN: Soft, without detectable tenderness. No sign of distention. No rebound or guarding, and no masses palpated. Bowel Sounds normal. MUSCULOSKELETAL: Moves most joints except the right lower extremity ankle area. Extremities with cyanosis to right lower ext, right large toe. NEUROLOGIC EXAM: follows command. PSYCHIATRIC: unable to assess. SKIN: cold at the right lower ext from the knee down once - Constitutional Vitals: Temp Pulse Resp BP Pulse Ox 102.2 F H 104 H 18 103/52 100 10/28/16 08:00 10/28/16 12:00 10/28/16 12:00 10/28/16 12:00 10/28/16 12:00 General appearance: Present: no acute distress Results - Labs CBC & Chem 7: 10/28/16 04:10 10/28/16 04:10 Labs: Laboratory Last Values WBC 18.8 K/mm3 (4.5-11.0) H 10/28/16 04:10 RBC 2.64 M/mm3 (3.65-5.03) L 10/28/16 04:10 Hgb 8.1 gm/dl (10.1-14.3) L 10/28/16 04:10 Hct 26.1 % (30.3-42.9) L 10/28/16 04:10 MCV 99 fl (79-97) H 10/28/16 04:10 MCH 31 pg (28-32) 10/28/16 04:10 MCHC 31 % (30-34) 10/28/16 04:10 RDW 16.2 % (13.2-15.2) H 10/28/16 04:10 Plt Count 544 K/mm3 (140-440) H 10/28/16 04:10 Lymph % (Auto) Minister 10/21/16 05:00 Yates % (Auto) Minister 10/21/16 05:00 Eos % (Auto) Minister 10/21/16 05:00 Baso % (Auto) Minister 10/21/16 05:00 Lymph # Minister 10/21/16 05:00 Yates # Minister 10/21/16 05:00 Eos # Minister 10/21/16 05:00 Baso # Minister 10/21/16 05:00 Add Manual Diff Complete 10/25/16 19:25 Total Counted 100 10/25/16 19:25 Seg Neutrophils % Minister 10/21/16 05:00 Seg Neuts % (Manual) 81.0 % (40.0-70.0) H 10/25/16 19:25 Band Neutrophils % 5.0 % 10/25/16 19:25 Lymphocytes % (Manual) 9.0 % (13.4-35.0) L 10/25/16 19:25 Reactive Lymphs % (Man) 0 % 10/25/16 19:25 Monocytes % (Manual) 3.0 % (0.0-7.3) 10/25/16 19:25 Eosinophils % (Manual) 0 % (0.0-4.3) 10/25/16 19:25 Basophils % (Manual) 0 % (0.0-1.8) 10/25/16 19:25 Metamyelocytes % 2.0 % 10/25/16 19:25 Myelocytes % 0 % 10/25/16 19:25 Promyelocytes % 0 % 10/25/16 19:25 Blast Cells % 0 % 10/25/16 19:25 Nucleated RBC % Not Reportable 10/25/16 19:25 Seg Neutrophils # Minister 10/21/16 05:00 Seg Neutrophils # Man 17.1 K/mm3 (1.8-7.7) H 10/25/16 19:25 Band Neutrophils # 1.1 K/mm3 10/25/16 19:25 Lymphocytes # (Manual) 1.9 K/mm3 (1.2-5.4) 10/25/16 19:25 Abs React Lymphs (Man) 0.0 K/mm3 10/25/16 19:25 Monocytes # (Manual) 0.6 K/mm3 (0.0-0.8) 10/25/16 19:25 Eosinophils # (Manual) 0.0 K/mm3 (0.0-0.4) 10/25/16 19:25 Basophils # (Manual) 0.0 K/mm3 (0.0-0.1) 10/25/16 19:25 Metamyelocytes # 0.4 K/mm3 10/25/16 19:25 Myelocytes # 0.0 K/mm3 10/25/16 19:25 Promyelocytes # 0.0 K/mm3 10/25/16 19:25 Blast Cells # 0.0 K/mm3 10/25/16 19:25 WBC Morphology Not Reportable 10/25/16 19:25 Hypersegmented Neuts Not Reportable 10/25/16 19:25 Hyposegmented Neuts Not Reportable 10/25/16 19:25 Hypogranular Neuts Not Reportable 10/25/16 19:25 Hypersegmented Polys TNR 10/17/16 07:08 Smudge Cells Not Reportable 10/25/16 19:25 Toxic Granulation Not Reportable 10/25/16 19:25 Toxic Vacuolation Not Reportable 10/25/16 19:25 Dohle Bodies Not Reportable 10/25/16 19:25 Pelger-Huet Anomaly Not Reportable 10/25/16 19:25 Alka Rods Not Reportable 10/25/16 19:25 Platelet Estimate Consistent w auto 10/25/16 19:25 Clumped Platelets Not Reportable 10/25/16 19:25 Plt Clumps, EDTA Not Reportable 10/25/16 19:25 Large Platelets 1+ 10/25/16 19:25 Giant Platelets Not Reportable 10/25/16 19:25 Platelet Satelliting Not Reportable 10/25/16 19:25 Plt Morphology Comment Not Reportable 10/25/16 19:25 RBC Morphology Not Reportable 10/25/16 19:25 Dimorphic RBCs Not Reportable 10/25/16 19:25 Polychromasia Not Reportable 10/25/16 19:25 Hypochromasia 1+ 10/25/16 19:25 Poikilocytosis 1+ 10/25/16 19:25 Basophilic Stippling TNR 10/17/16 07:08 Anisocytosis 1+ 10/25/16 19:25 Microcytosis Not Reportable 10/25/16 19:25 Macrocytosis Not Reportable 10/25/16 19:25 Spherocytes Not Reportable 10/25/16 19:25 Pappenheimer Bodies Not Reportable 10/25/16 19:25 Sickle Cells Not Reportable 10/25/16 19:25 Target Cells Not Reportable 10/25/16 19:25 Tear Drop Cells Not Reportable 10/25/16 19:25 Ovalocytes Not Reportable 10/25/16 19:25 Stomatocytes Rare 10/22/16 04:20 Helmet Cells Not Reportable 10/25/16 19:25 Higgins-Danville Bodies Not Reportable 10/25/16 19:25 Superior Rings Not Reportable 10/25/16 19:25 Grafton Cells Not Reportable 10/25/16 19:25 Bite Cells Not Reportable 10/25/16 19:25 Crenated Cell Not Reportable 10/25/16 19:25 Elliptocytes Not Reportable 10/25/16 19:25 Acanthocytes (Spur) Not Reportable 10/25/16 19:25 Rouleaux Not Reportable 10/25/16 19:25 Hemoglobin C Crystals Not Reportable 10/25/16 19:25 Schistocytes Not Reportable 10/25/16 19:25 Malaria parasites Not Reportable 10/25/16 19:25 David Bodies Not Reportable 10/25/16 19:25 Hem Pathologist Commnt No 10/25/16 19:25 PT 16.4 Sec. (12.2-14.9) H 10/17/16 16:07 INR 1.33 (0.87-1.13) H 10/17/16 16:07 APTT 38.8 Sec. (24.2-36.6) H 10/17/16 16:07 Heparin Anti-Xa Level 0.20 U.I./ml (0.3-0.7) L 10/28/16 04:10 POC ABG pH 7.398 (7.35-7.45) 10/26/16 15:28 POC ABG pCO2 33.7 (35-45) L 10/26/16 15:28 POC ABG pO2 99 (80-105) 10/26/16 15:28 POC ABG HCO3 20.8 10/26/16 15:28 POC ABG Total CO2 22 10/26/16 15:28 POC ABG O2 Sat 98 10/26/16 15:28 POC ABG Base Excess -4 10/26/16 15:28 VBG pH 7.020 (7.320-7.420) L* 10/13/16 04:22 FiO2 25 % 10/26/16 15:28 Sodium 143 mmol/L (137-145) 10/28/16 04:10 Potassium 4.1 mmol/L (3.6-5.0) 10/28/16 04:10 Chloride 105.2 mmol/L (98-107) 10/28/16 04:10 Carbon Dioxide 21 mmol/L (22-30) L 10/28/16 04:10 Anion Gap 21 mmol/L 10/28/16 04:10 BUN 24 mg/dL (7-17) H 10/28/16 04:10 Creatinine 0.8 mg/dL (0.7-1.2) 10/28/16 04:10 Estimated GFR > 60 ml/min 10/28/16 04:10 BUN/Creatinine Ratio 30.00 % 10/28/16 04:10 Glucose 302 mg/dL (65-100) H 10/28/16 04:10 POC Glucose 205 (70-105) H 10/28/16 12:36 Osmolality 332 Mosm/kg 10/14/16 07:03 Lactic Acid 1.8 mmol/L (0.7-2.0) 10/14/16 07:03 Calcium 7.7 mg/dL (8.4-10.2) L 10/28/16 04:10 Phosphorus 2.7 mg/dL (2.5-4.5) D 10/21/16 Unknown Magnesium 1.8 mg/dL (1.7-2.3) 10/26/16 09:03 Total Bilirubin 0.5 mg/dL (0.1-1.2) 10/15/16 04:40 AST 79 units/L (5-40) H 10/15/16 04:40 ALT 27 units/L (7-56) 10/15/16 04:40 Alkaline Phosphatase 80 units/L (35-129) 10/15/16 04:40 Ammonia 35.0 umol/L (25-60) 10/13/16 05:40 Total Creatine Kinase 107 units/L (30-135) 10/13/16 04:22 CK-MB (CK-2) 3.1 ng/mL (0.0-4.0) 10/13/16 04:22 CK-MB (CK-2) Rel Index 2.8 (0-4) 10/13/16 04:22 Troponin T < 0.010 ng/mL (0.00-0.029) 10/14/16 18:55 C-Reactive Protein 10.50 mg/dL (0.00-1.30) H 10/13/16 16:14 Total Protein 5.5 g/dL (6.3-8.2) L 10/15/16 04:40 Albumin 3.0 g/dL (3.9-5) L 10/15/16 04:40 Albumin/Globulin Ratio 1.2 % 10/15/16 04:40 Amylase 57 units/L (27-131) 10/26/16 20:00 Lipase 58 units/L (13-60) 10/26/16 20:00 Vitamin B12 976.8 pg/mL (211-911) H 10/22/16 10:25 TSH 0.162 mlU/mL (0.270-4.200) L 10/22/16 14:50 Free T4 0.77 ng/dL (0.76-1.46) 10/22/16 14:50 Urine Color Yellow (Yellow) 10/15/16 11:05 Urine Turbidity Cloudy (Clear) 10/15/16 11:05 Urine pH 5.0 (5.0-7.0) 10/15/16 11:05 Ur Specific [place] 1.009 (1.003-1.030) 10/15/16 11:05 Urine Protein 30 mg/dl mg/dL (Negative) 10/15/16 11:05 Urine Glucose (UA) 150 mg/dL (Negative) 10/15/16 11:05 Urine Ketones Neg mg/dL (Negative) 10/15/16 11:05 Urine Blood Lg (Negative) 10/15/16 11:05 Urine Nitrite Neg (Negative) 10/15/16 11:05 Urine Bilirubin Neg (Negative) 10/15/16 11:05 Urine Urobilinogen < 2.0 mg/dL (<2.0) 10/15/16 11:05 Ur Leukocyte Esterase Neg (Negative) 10/15/16 11:05 Urine WBC (Auto) 7.0 /HPF (0.0-6.0) H 10/15/16 11:05 Urine RBC (Auto) 7.0 /HPF (0.0-6.0) 10/15/16 11:05 U Epithel Cells (Auto) 1.0 /HPF (0-13.0) 10/15/16 11:05 Urine Mucus Few /HPF 10/15/16 11:05 Urine Yeast (Budding) 2+ /HPF 10/15/16 11:05 Urine Osmolality 487 Mosm/kg 10/13/16 Unknown Urine Creatinine < 4.2 mg/dL (0.1-20.0) 10/13/16 Unknown Protein/Creatinin Ratio 0.00 10/13/16 Unknown Urine Sodium 10 mEq/L 10/13/16 Unknown Urine Potassium 1.00 mEq/L 10/13/16 Unknown Urine Chloride 10.0 mEq/L (110-250) L 10/13/16 Unknown Urine Total Protein < 4 mg/dL (5-11.8) L 10/13/16 Unknown Vancomycin Trough 17.7 ug/mL (5.0-20.0) 10/22/16 10:25 Ketones 107.3 mg/dL (0.2-2.8) H 10/13/16 04:22 Blood Type A POSITIVE 10/22/16 20:00 Antibody Screen Negative 10/22/16 20:00 Crossmatch See Detail 10/22/16 20:00
--- NOTE | 2016-10-28 14:15 | Event Note ---
Date: 10/28/16 Patient seen, at the bedside. She is more reacting, as per follows simple commands. She felt weaning trials and will think about the Green for PEG and trach by Gen. surgery. When stable will perform revascularization and amputation.
--- NOTE | 2016-10-28 14:30 | Progress Note ---
Assessment and Plan - Patient Problems (1) Acute respiratory failure with hypercapnia Current Visit: Yes Status: Acute Plan to address problem: - continue aspiration precautions / VAP bundles - continue bronchodilators and pulmonary toilet - wean oxygen to keep sats > 94% - resume graded weaning at Psupp of 20 cmH2O - ETT day # 12-13 and will need a tracheostomy (2) Altered mental status Current Visit: Yes Status: Acute Qualifiers: Altered mental status type: A Coma depth: C Coma timing: C Plan to address problem: - no active seizures - following clinically - seen by neurology and will follow their recommendations - no seizures on EEG (3) LUCY (acute kidney injury) Current Visit: Yes Status: Acute Plan to address problem: - replaced potasium - continue free water flushes - follow I's & O's - resolved essentially - non-oliguric (4) DKA (diabetic ketoacidoses) Current Visit: Yes Status: Acute Qualifiers: Diabetes mellitus type: D Diabetes mellitus complication detail: D Plan to address problem: - off IV insulin - continue SSI - resolved (5) Sepsis Current Visit: No Status: Acute Qualifiers: Sepsis type: S Plan to address problem: - continue anti-infectives per ID recs - follow clinically - trend lactate and CRP prn (6) Tachycardia Current Visit: Yes Status: Acute Plan to address problem: - improved with beta-blockade (7) Discharge planning issues Current Visit: No Status: Acute Plan to address problem: - not accepted by [facility] ...remains critically ill on life sustaining treatments including MVS and at high risk for further deterioration including ...30' CCT Subjective Date of service: 10/28/16 Principal diagnosis: respiratory failure on mechanical ventilatory support, DKA Interval history: Seen and examined at bedside; 24 hour events reviewed; nursing and respiratory care staff consulted; no adverse overnight events reported to me; no new issues respiratory-bunn; remains on MVS and not tolerating weaning trials Objective Vital Signs - 12hr 10/28/16 10/28/16 10/28/16 03:00 04:00 04:58 Temperature Pulse Rate 114 H 106 H 106 H Pulse Rate [ 105 H From Monitor] Respiratory 24 17 Rate Blood Pressure 139/60 136/64 136/64 O2 Sat by Pulse 99 98 Oximetry 10/28/16 10/28/16 10/28/16 05:00 05:39 06:00 Temperature 101.9 F H Pulse Rate 105 H 110 H 109 H Pulse Rate [ From Monitor] Respiratory 14 19 Rate Blood Pressure 135/66 125/70 125/70 O2 Sat by Pulse 98 100 Oximetry 10/28/16 10/28/16 10/28/16 06:47 07:00 08:00 Temperature 102.2 F H Pulse Rate 103 H 97 H 100 H Pulse Rate [ From Monitor] Respiratory 19 18 Rate Blood Pressure 144/82 146/68 146/68 O2 Sat by Pulse 100 100 100 Oximetry 10/28/16 10/28/16 10/28/16 09:00 10:00 11:00 Temperature Pulse Rate 99 H 98 H 81 Pulse Rate [ From Monitor] Respiratory 19 24 18 Rate Blood Pressure 131/63 120/65 120/65 O2 Sat by Pulse 100 100 Oximetry 10/28/16 10/28/16 10/28/16 11:54 12:00 13:51 Temperature 100.0 F H Pulse Rate 85 104 H 108 H Pulse Rate [ From Monitor] Respiratory 18 Rate Blood Pressure 103/52 103/52 145/73 O2 Sat by Pulse 100 100 Oximetry Constitutional: appears uncomfortable, other (? delirium / dementia element) Eyes: non-icteric ENT: oropharynx moist Neck: supple, no lymphadenopathy Effort: mildly labored Ascultation: Bilateral: diminished breath sounds, rales (bases) Cardiovascular: regular rate and rhythm, other (tachycardia) Gastrointestinal: normoactive bowel sounds, soft, non-tender, non-distended Integumentary: normal Extremities: no cyanosis, no edema, no ischemia or petechiae, other (cold right foot with digital ischemia) Neurologic: non-focal exam (grossly), unable to assess Psychiatric: other (sedated) CBC and BMP: 11/01/16 06:33 11/01/16 06:33 ABG, PT/INR, D-dimer: ABG POC ABG pH 7.398 (7.35-7.45) 10/26/16 15:28 POC ABG pCO2 33.7 (35-45) L 10/26/16 15:28 POC ABG pO2 99 (80-105) 10/26/16 15:28 POC ABG HCO3 20.8 10/26/16 15:28 POC ABG Total CO2 22 10/26/16 15:28 POC ABG O2 Sat 98 10/26/16 15:28 PT/INR, D-dimer PT 16.4 Sec. (12.2-14.9) H 10/17/16 16:07 INR 1.33 (0.87-1.13) H 10/17/16 16:07 Abnormal lab findings: Abnormal Labs 10/13/16 10/13/16 10/13/16 06:38 06:38 07:23 WBC RBC Hgb Hct MCV RDW Plt Count Lymph % (Auto) [place] % (Auto) [place] # Seg Neutrophils % Seg Neuts % (Manual) Lymphocytes % (Manual) Monocytes % (Manual) Seg Neutrophils # Seg Neutrophils # Man Lymphocytes # (Manual) Monocytes # (Manual) Eosinophils # (Manual) Basophils # (Manual) PT INR APTT Heparin Anti-Xa Level POC ABG pH POC ABG pCO2 POC ABG pO2 Sodium Potassium 6.2 H* Chloride Carbon Dioxide 8 L* BUN 85 H Creatinine 2.8 H Glucose 602 H* POC Glucose 495 H Calcium 7.9 L Phosphorus 6.9 H D Magnesium 3.0 H AST C-Reactive Protein Total Protein Albumin Lipase Vitamin B12 TSH Urine WBC (Auto) Urine Chloride Urine Total Protein Crossmatch 10/13/16 10/13/16 10/13/16 08:49 08:55 10:12 WBC RBC Hgb Hct MCV RDW Plt Count Lymph % (Auto) [place] % (Auto) [place] # Seg Neutrophils % Seg Neuts % (Manual) Lymphocytes % (Manual) Monocytes % (Manual) Seg Neutrophils # Seg Neutrophils # Man Lymphocytes # (Manual) Monocytes # (Manual) Eosinophils # (Manual) Basophils # (Manual) PT INR APTT Heparin Anti-Xa Level POC ABG pH POC ABG pCO2 POC ABG pO2 Sodium Potassium 5.6 H Chloride Carbon Dioxide 11 L BUN 77 H Creatinine 2.7 H Glucose 457 H POC Glucose > 500 H 424 H Calcium 8.0 L Phosphorus Magnesium AST C-Reactive Protein Total Protein Albumin Lipase Vitamin B12 TSH Urine WBC (Auto) Urine Chloride Urine Total Protein Crossmatch 10/13/16 10/13/16 10/13/16 10:44 11:22 12:20 WBC RBC Hgb Hct MCV RDW Plt Count Lymph % (Auto) [place] % (Auto) [place] # Seg Neutrophils % Seg Neuts % (Manual) Lymphocytes % (Manual) Monocytes % (Manual) Seg Neutrophils # Seg Neutrophils # Man Lymphocytes # (Manual) Monocytes # (Manual) Eosinophils # (Manual) Basophils # (Manual) PT INR APTT Heparin Anti-Xa Level POC ABG pH POC ABG pCO2 POC ABG pO2 Sodium Potassium 5.4 H Chloride Carbon Dioxide 14 L BUN 72 H Creatinine 2.6 H Glucose 383 H POC Glucose 391 H 313 H Calcium 8.2 L Phosphorus Magnesium AST C-Reactive Protein Total Protein Albumin Lipase Vitamin B12 TSH Urine WBC (Auto) Urine Chloride Urine Total Protein Crossmatch 10/13/16 10/13/16 10/13/16 13:32 14:44 15:57 WBC RBC Hgb Hct MCV RDW Plt Count Lymph % (Auto) [place] % (Auto) [place] # Seg Neutrophils % Seg Neuts % (Manual) Lymphocytes % (Manual) Monocytes % (Manual) Seg Neutrophils # Seg Neutrophils # Man Lymphocytes # (Manual) Monocytes # (Manual) Eosinophils # (Manual) Basophils # (Manual) PT INR APTT Heparin Anti-Xa Level POC ABG pH POC ABG pCO2 POC ABG pO2 Sodium Potassium Chloride Carbon Dioxide BUN Creatinine Glucose POC Glucose 296 H 210 H 190 H Calcium Phosphorus Magnesium AST C-Reactive Protein Total Protein Albumin Lipase Vitamin B12 TSH Urine WBC (Auto) Urine Chloride Urine Total Protein Crossmatch 10/13/16 10/13/16 10/13/16 16:14 16:14 17:17 WBC RBC Hgb Hct MCV RDW Plt Count Lymph % (Auto) [place] % (Auto) [place] # Seg Neutrophils % Seg Neuts % (Manual) Lymphocytes % (Manual) Monocytes % (Manual) Seg Neutrophils # Seg Neutrophils # Man Lymphocytes # (Manual) Monocytes # (Manual) Eosinophils # (Manual) Basophils # (Manual) PT INR APTT Heparin Anti-Xa Level POC ABG pH POC ABG pCO2 POC ABG pO2 Sodium Potassium Chloride Carbon Dioxide 17 L BUN 58 H Creatinine 1.8 H Glucose 172 H POC Glucose 193 H Calcium 7.7 L Phosphorus Magnesium AST C-Reactive Protein 10.50 H Total Protein Albumin Lipase Vitamin B12 TSH Urine WBC (Auto) Urine Chloride Urine Total Protein Crossmatch 10/13/16 10/13/16 10/13/16 17:55 18:32 19:41 WBC RBC Hgb Hct MCV RDW Plt Count Lymph % (Auto) [place] % (Auto) [place] # Seg Neutrophils % Seg Neuts % (Manual) Lymphocytes % (Manual) Monocytes % (Manual) Seg Neutrophils # Seg Neutrophils # Man Lymphocytes # (Manual) Monocytes # (Manual) Eosinophils # (Manual) Basophils # (Manual) PT INR APTT Heparin Anti-Xa Level POC ABG pH POC ABG pCO2 30.6 L POC ABG pO2 218 H Sodium Potassium Chloride Carbon Dioxide BUN Creatinine Glucose POC Glucose 192 H 177 H Calcium Phosphorus Magnesium AST C-Reactive Protein Total Protein Albumin Lipase Vitamin B12 TSH Urine WBC (Auto) Urine Chloride Urine Total Protein Crossmatch 10/13/16 10/13/16 10/13/16 20:54 22:07 23:13 WBC RBC Hgb Hct MCV RDW Plt Count Lymph % (Auto) [place] % (Auto) [place] # Seg Neutrophils % Seg Neuts % (Manual) Lymphocytes % (Manual) Monocytes % (Manual) Seg Neutrophils # Seg Neutrophils # Man Lymphocytes # (Manual) Monocytes # (Manual) Eosinophils # (Manual) Basophils # (Manual) PT INR APTT Heparin Anti-Xa Level POC ABG pH POC ABG pCO2 POC ABG pO2 Sodium Potassium Chloride Carbon Dioxide BUN Creatinine Glucose POC Glucose 178 H 160 H 168 H Calcium Phosphorus Magnesium AST C-Reactive Protein Total Protein Albumin Lipase Vitamin B12 TSH Urine WBC (Auto) Urine Chloride Urine Total Protein Crossmatch 10/13/16 10/13/16 10/14/16 23:25 Unknown 00:21 WBC RBC Hgb Hct MCV RDW Plt Count Lymph % (Auto) [place] % (Auto) [place] # Seg Neutrophils % Seg Neuts % (Manual) Lymphocytes % (Manual) Monocytes % (Manual) Seg Neutrophils # Seg Neutrophils # Man Lymphocytes # (Manual) Monocytes # (Manual) Eosinophils # (Manual) Basophils # (Manual) PT INR APTT Heparin Anti-Xa Level POC ABG pH POC ABG pCO2 POC ABG pO2 Sodium 148 H Potassium Chloride 114.6 H Carbon Dioxide 17 L BUN 56 H Creatinine 1.6 H Glucose 151 H POC Glucose 171 H Calcium 7.8 L Phosphorus Magnesium AST C-Reactive Protein Total Protein Albumin Lipase Vitamin B12 TSH Urine WBC (Auto) Urine Chloride 10.0 L Urine Total Protein < 4 L Crossmatch 10/14/16 10/14/16 10/14/16 01:22 02:29 03:30 WBC RBC Hgb Hct MCV RDW Plt Count Lymph % (Auto) [place] % (Auto) [place] # Seg Neutrophils % Seg Neuts % (Manual) Lymphocytes % (Manual) Monocytes % (Manual) Seg Neutrophils # Seg Neutrophils # Man Lymphocytes # (Manual) Monocytes # (Manual) Eosinophils # (Manual) Basophils # (Manual) PT INR APTT Heparin Anti-Xa Level POC ABG pH POC ABG pCO2 POC ABG pO2 Sodium Potassium Chloride Carbon Dioxide BUN Creatinine Glucose POC Glucose 144 H 136 H 143 H Calcium Phosphorus Magnesium AST C-Reactive Protein Total Protein Albumin Lipase Vitamin B12 TSH Urine WBC (Auto) Urine Chloride Urine Total Protein Crossmatch 10/14/16 10/14/16 10/14/16 04:28 05:16 05:44 WBC RBC Hgb Hct MCV RDW Plt Count Lymph % (Auto) [place] % (Auto) [place] # Seg Neutrophils % Seg Neuts % (Manual) Lymphocytes % (Manual) Monocytes % (Manual) Seg Neutrophils # Seg Neutrophils # Man Lymphocytes # (Manual) Monocytes # (Manual) Eosinophils # (Manual) Basophils # (Manual) PT INR APTT Heparin Anti-Xa Level POC ABG pH POC ABG pCO2 28.2 L POC ABG pO2 125 H Sodium Potassium Chloride Carbon Dioxide BUN Creatinine Glucose POC Glucose 133 H 160 H Calcium Phosphorus Magnesium AST C-Reactive Protein Total Protein Albumin Lipase Vitamin B12 TSH Urine WBC (Auto) Urine Chloride Urine Total Protein Crossmatch 10/14/16 10/14/16 10/14/16 06:12 06:45 07:03 WBC RBC Hgb Hct MCV RDW Plt Count Lymph % (Auto) [place] % (Auto) [place] # Seg Neutrophils % Seg Neuts % (Manual) Lymphocytes % (Manual) Monocytes % (Manual) Seg Neutrophils # Seg Neutrophils # Man Lymphocytes # (Manual) Monocytes # (Manual) Eosinophils # (Manual) Basophils # (Manual) PT INR APTT Heparin Anti-Xa Level POC ABG pH POC ABG pCO2 POC ABG pO2 Sodium 149 H Potassium Chloride 115.4 H Carbon Dioxide 17 L BUN 45 H Creatinine 1.5 H Glucose 139 H POC Glucose 149 H Calcium 7.4 L Phosphorus 1.0 L D Magnesium AST C-Reactive Protein Total Protein Albumin Lipase Vitamin B12 TSH Urine WBC (Auto) Urine Chloride Urine Total Protein Crossmatch 10/14/16 10/14/16 10/14/16 07:03 08:02 09:16 WBC RBC Hgb Hct MCV RDW Plt Count Lymph % (Auto) [place] % (Auto) [place] # Seg Neutrophils % Seg Neuts % (Manual) Lymphocytes % (Manual) Monocytes % (Manual) Seg Neutrophils # Seg Neutrophils # Man Lymphocytes # (Manual) Monocytes # (Manual) Eosinophils # (Manual) Basophils # (Manual) PT INR APTT Heparin Anti-Xa Level POC ABG pH POC ABG pCO2 POC ABG pO2 Sodium Potassium Chloride Carbon Dioxide BUN Creatinine Glucose POC Glucose 156 H 158 H Calcium Phosphorus Magnesium AST C-Reactive Protein Total Protein Albumin Lipase 738 H Vitamin B12 TSH Urine WBC (Auto) Urine Chloride Urine Total Protein Crossmatch 10/14/16 10/14/16 10/14/16 10:26 11:03 11:57 WBC RBC Hgb Hct MCV RDW Plt Count Lymph % (Auto) [place] % (Auto) [place] # Seg Neutrophils % Seg Neuts % (Manual) Lymphocytes % (Manual) Monocytes % (Manual) Seg Neutrophils # Seg Neutrophils # Man Lymphocytes # (Manual) Monocytes # (Manual) Eosinophils # (Manual) Basophils # (Manual) PT INR APTT Heparin Anti-Xa Level POC ABG pH 7.198 L POC ABG pCO2 47.5 H POC ABG pO2 Sodium Potassium Chloride Carbon Dioxide BUN Creatinine Glucose POC Glucose 174 H 189 H Calcium Phosphorus Magnesium AST C-Reactive Protein Total Protein Albumin Lipase Vitamin B12 TSH Urine WBC (Auto) Urine Chloride Urine Total Protein Crossmatch 10/14/16 10/14/16 10/14/16 12:02 12:02 13:11 WBC 13.4 H RBC 3.60 L Hgb Hct MCV 98 H D RDW 13.1 L Plt Count Lymph % (Auto) [place] % (Auto) [place] # Seg Neutrophils % Seg Neuts % (Manual) Lymphocytes % (Manual) Monocytes % (Manual) Seg Neutrophils # Seg Neutrophils # Man Lymphocytes # (Manual) Monocytes # (Manual) Eosinophils # (Manual) Basophils # (Manual) PT INR APTT Heparin Anti-Xa Level POC ABG pH POC ABG pCO2 POC ABG pO2 Sodium Potassium Chloride 110.7 H Carbon Dioxide 19 L BUN 38 H Creatinine 1.4 H Glucose 182 H POC Glucose 173 H Calcium 7.5 L Phosphorus Magnesium AST C-Reactive Protein Total Protein Albumin Lipase Vitamin B12 TSH Urine WBC (Auto) Urine Chloride Urine Total Protein Crossmatch 10/14/16 10/14/16 10/14/16 14:24 15:31 16:36 WBC RBC Hgb Hct MCV RDW Plt Count Lymph % (Auto) [place] % (Auto) [place] # Seg Neutrophils % Seg Neuts % (Manual) Lymphocytes % (Manual) Monocytes % (Manual) Seg Neutrophils # Seg Neutrophils # Man Lymphocytes # (Manual) Monocytes # (Manual) Eosinophils # (Manual) Basophils # (Manual) PT INR APTT Heparin Anti-Xa Level POC ABG pH POC ABG pCO2 POC ABG pO2 Sodium Potassium Chloride Carbon Dioxide BUN Creatinine Glucose POC Glucose 123 H 124 H 156 H Calcium Phosphorus Magnesium AST C-Reactive Protein Total Protein Albumin Lipase Vitamin B12 TSH Urine WBC (Auto) Urine Chloride Urine Total Protein Crossmatch 10/14/16 10/14/16 10/14/16 17:43 19:00 20:08 WBC RBC Hgb Hct MCV RDW Plt Count Lymph % (Auto) [place] % (Auto) [place] # Seg Neutrophils % Seg Neuts % (Manual) Lymphocytes % (Manual) Monocytes % (Manual) Seg Neutrophils # Seg Neutrophils # Man Lymphocytes # (Manual) Monocytes # (Manual) Eosinophils # (Manual) Basophils # (Manual) PT INR APTT Heparin Anti-Xa Level POC ABG pH POC ABG pCO2 POC ABG pO2 Sodium Potassium Chloride Carbon Dioxide BUN Creatinine Glucose POC Glucose 154 H 123 H 138 H Calcium Phosphorus Magnesium AST C-Reactive Protein Total Protein Albumin Lipase Vitamin B12 TSH Urine WBC (Auto) Urine Chloride Urine Total Protein Crossmatch 10/14/16 10/14/16 10/14/16 21:17 22:25 23:37 WBC RBC Hgb Hct MCV RDW Plt Count Lymph % (Auto) [place] % (Auto) [place] # Seg Neutrophils % Seg Neuts % (Manual) Lymphocytes % (Manual) Monocytes % (Manual) Seg Neutrophils # Seg Neutrophils # Man Lymphocytes # (Manual) Monocytes # (Manual) Eosinophils # (Manual) Basophils # (Manual) PT INR APTT Heparin Anti-Xa Level POC ABG pH POC ABG pCO2 POC ABG pO2 Sodium Potassium Chloride Carbon Dioxide BUN Creatinine Glucose POC Glucose 148 H 132 H 137 H Calcium Phosphorus Magnesium AST C-Reactive Protein Total Protein Albumin Lipase Vitamin B12 TSH Urine WBC (Auto) Urine Chloride Urine Total Protein Crossmatch 10/15/16 10/15/16 10/15/16 00:49 01:53 03:06 WBC RBC Hgb Hct MCV RDW Plt Count Lymph % (Auto) [place] % (Auto) [place] # Seg Neutrophils % Seg Neuts % (Manual) Lymphocytes % (Manual) Monocytes % (Manual) Seg Neutrophils # Seg Neutrophils # Man Lymphocytes # (Manual) Monocytes # (Manual) Eosinophils # (Manual) Basophils # (Manual) PT INR APTT Heparin Anti-Xa Level POC ABG pH POC ABG pCO2 POC ABG pO2 Sodium Potassium Chloride Carbon Dioxide BUN Creatinine Glucose POC Glucose 132 H 134 H 134 H Calcium Phosphorus Magnesium AST C-Reactive Protein Total Protein Albumin Lipase Vitamin B12 TSH Urine WBC (Auto) Urine Chloride Urine Total Protein Crossmatch 10/15/16 10/15/16 10/15/16 04:40 04:46 06:21 WBC RBC Hgb Hct MCV RDW Plt Count Lymph % (Auto) [place] % (Auto) [place] # Seg Neutrophils % Seg Neuts % (Manual) Lymphocytes % (Manual) Monocytes % (Manual) Seg Neutrophils # Seg Neutrophils # Man Lymphocytes # (Manual) Monocytes # (Manual) Eosinophils # (Manual) Basophils # (Manual) PT INR APTT Heparin Anti-Xa Level POC ABG pH POC ABG pCO2 30.7 L POC ABG pO2 108 H Sodium Potassium Chloride 109.0 H Carbon Dioxide 17 L BUN 27 H Creatinine Glucose 124 H POC Glucose 160 H Calcium 7.5 L Phosphorus Magnesium AST 79 H C-Reactive Protein Total Protein 5.5 L Albumin 3.0 L Lipase Vitamin B12 TSH Urine WBC (Auto) Urine Chloride Urine Total Protein Crossmatch 10/15/16 10/15/16 10/15/16 07:12 08:01 09:03 WBC RBC Hgb Hct MCV RDW Plt Count Lymph % (Auto) [place] % (Auto) [place] # Seg Neutrophils % Seg Neuts % (Manual) Lymphocytes % (Manual) Monocytes % (Manual) Seg Neutrophils # Seg Neutrophils # Man Lymphocytes # (Manual) Monocytes # (Manual) Eosinophils # (Manual) Basophils # (Manual) PT INR APTT Heparin Anti-Xa Level POC ABG pH POC ABG pCO2 POC ABG pO2 Sodium Potassium Chloride Carbon Dioxide BUN Creatinine Glucose POC Glucose 179 H 187 H 165 H Calcium Phosphorus Magnesium AST C-Reactive Protein Total Protein Albumin Lipase Vitamin B12 TSH Urine WBC (Auto) Urine Chloride Urine Total Protein Crossmatch 10/15/16 10/15/16 10/15/16 10:06 10:06 10:07 WBC 12.1 H RBC 3.01 L Hgb 9.7 L Hct 29.6 L MCV 98 H RDW Plt Count 129 L Lymph % (Auto) [place] % (Auto) [place] # Seg Neutrophils % Seg Neuts % (Manual) Lymphocytes % (Manual) Monocytes % (Manual) Seg Neutrophils # Seg Neutrophils # Man Lymphocytes # (Manual) Monocytes # (Manual) Eosinophils # (Manual) Basophils # (Manual) PT INR APTT Heparin Anti-Xa Level POC ABG pH POC ABG pCO2 POC ABG pO2 Sodium Potassium 3.2 L D Chloride 109.6 H Carbon Dioxide 18 L BUN 22 H Creatinine Glucose 127 H POC Glucose 147 H Calcium 7.0 L Phosphorus Magnesium AST C-Reactive Protein Total Protein Albumin Lipase Vitamin B12 TSH Urine WBC (Auto) Urine Chloride Urine Total Protein Crossmatch 10/15/16 10/15/16 10/15/16 11:05 11:06 11:57 WBC RBC Hgb Hct MCV RDW Plt Count Lymph % (Auto) [place] % (Auto) [place] # Seg Neutrophils % Seg Neuts % (Manual) Lymphocytes % (Manual) Monocytes % (Manual) Seg Neutrophils # Seg Neutrophils # Man Lymphocytes # (Manual) Monocytes # (Manual) Eosinophils # (Manual) Basophils # (Manual) PT INR APTT Heparin Anti-Xa Level POC ABG pH 7.305 L POC ABG pCO2 POC ABG pO2 Sodium Potassium Chloride Carbon Dioxide BUN Creatinine Glucose POC Glucose 145 H Calcium Phosphorus Magnesium AST C-Reactive Protein Total Protein Albumin Lipase Vitamin B12 TSH Urine WBC (Auto) 7.0 H Urine Chloride Urine Total Protein Crossmatch 10/15/16 10/15/16 10/15/16 12:04 13:59 15:24 WBC RBC Hgb Hct MCV RDW Plt Count Lymph % (Auto) [place] % (Auto) [place] # Seg Neutrophils % Seg Neuts % (Manual) Lymphocytes % (Manual) Monocytes % (Manual) Seg Neutrophils # Seg Neutrophils # Man Lymphocytes # (Manual) Monocytes # (Manual) Eosinophils # (Manual) Basophils # (Manual) PT INR APTT Heparin Anti-Xa Level POC ABG pH POC ABG pCO2 POC ABG pO2 Sodium Potassium Chloride Carbon Dioxide BUN Creatinine Glucose POC Glucose 123 H 147 H 153 H Calcium Phosphorus Magnesium AST C-Reactive Protein Total Protein Albumin Lipase Vitamin B12 TSH Urine WBC (Auto) Urine Chloride Urine Total Protein Crossmatch 10/15/16 10/15/16 10/15/16 16:30 17:34 18:30 WBC RBC Hgb Hct MCV RDW Plt Count Lymph % (Auto) [place] % (Auto) [place] # Seg Neutrophils % Seg Neuts % (Manual) Lymphocytes % (Manual) Monocytes % (Manual) Seg Neutrophils # Seg Neutrophils # Man Lymphocytes # (Manual) Monocytes # (Manual) Eosinophils # (Manual) Basophils # (Manual) PT INR APTT Heparin Anti-Xa Level POC ABG pH POC ABG pCO2 POC ABG pO2 Sodium Potassium Chloride Carbon Dioxide BUN Creatinine Glucose POC Glucose 223 H 236 H 164 H Calcium Phosphorus Magnesium AST C-Reactive Protein Total Protein Albumin Lipase Vitamin B12 TSH Urine WBC (Auto) Urine Chloride Urine Total Protein Crossmatch 10/15/16 10/15/16 10/15/16 19:14 20:31 21:23 WBC RBC Hgb Hct MCV RDW Plt Count Lymph % (Auto) [place] % (Auto) [place] # Seg Neutrophils % Seg Neuts % (Manual) Lymphocytes % (Manual) Monocytes % (Manual) Seg Neutrophils # Seg Neutrophils # Man Lymphocytes # (Manual) Monocytes # (Manual) Eosinophils # (Manual) Basophils # (Manual) PT INR APTT Heparin Anti-Xa Level POC ABG pH POC ABG pCO2 POC ABG pO2 Sodium Potassium Chloride Carbon Dioxide BUN Creatinine Glucose POC Glucose 138 H 158 H 158 H Calcium Phosphorus Magnesium AST C-Reactive Protein Total Protein Albumin Lipase Vitamin B12 TSH Urine WBC (Auto) Urine Chloride Urine Total Protein Crossmatch 10/15/16 10/15/16 10/16/16 22:04 22:57 00:11 WBC RBC Hgb Hct MCV RDW Plt Count Lymph % (Auto) [place] % (Auto) [place] # Seg Neutrophils % Seg Neuts % (Manual) Lymphocytes % (Manual) Monocytes % (Manual) Seg Neutrophils # Seg Neutrophils # Man Lymphocytes # (Manual) Monocytes # (Manual) Eosinophils # (Manual) Basophils # (Manual) PT INR APTT Heparin Anti-Xa Level POC ABG pH POC ABG pCO2 POC ABG pO2 Sodium Potassium Chloride Carbon Dioxide BUN Creatinine Glucose POC Glucose 168 H 213 H 166 H Calcium Phosphorus Magnesium AST C-Reactive Protein Total Protein Albumin Lipase Vitamin B12 TSH Urine WBC (Auto) Urine Chloride Urine Total Protein Crossmatch 10/16/16 10/16/16 10/16/16 01:16 02:32 03:38 WBC RBC Hgb Hct MCV RDW Plt Count Lymph % (Auto) [place] % (Auto) [place] # Seg Neutrophils % Seg Neuts % (Manual) Lymphocytes % (Manual) Monocytes % (Manual) Seg Neutrophils # Seg Neutrophils # Man Lymphocytes # (Manual) Monocytes # (Manual) Eosinophils # (Manual) Basophils # (Manual) PT INR APTT Heparin Anti-Xa Level POC ABG pH POC ABG pCO2 POC ABG pO2 Sodium Potassium Chloride Carbon Dioxide BUN Creatinine Glucose POC Glucose 171 H 164 H 147 H Calcium Phosphorus Magnesium AST C-Reactive Protein Total Protein Albumin Lipase Vitamin B12 TSH Urine WBC (Auto) Urine Chloride Urine Total Protein Crossmatch 10/16/16 10/16/16 10/16/16 04:14 04:14 04:49 WBC RBC Hgb Hct MCV RDW Plt Count Lymph % (Auto) [place] % (Auto) [place] # Seg Neutrophils % Seg Neuts % (Manual) Lymphocytes % (Manual) Monocytes % (Manual) Seg Neutrophils # Seg Neutrophils # Man Lymphocytes # (Manual) Monocytes # (Manual) Eosinophils # (Manual) Basophils # (Manual) PT INR APTT Heparin Anti-Xa Level POC ABG pH POC ABG pCO2 POC ABG pO2 Sodium 147 H Potassium Chloride 110.9 H Carbon Dioxide 19 L BUN Creatinine Glucose 139 H POC Glucose 144 H Calcium 7.3 L Phosphorus 2.3 L Magnesium AST C-Reactive Protein Total Protein Albumin Lipase 143 H Vitamin B12 TSH Urine WBC (Auto) Urine Chloride Urine Total Protein Crossmatch 10/16/16 10/16/16 10/16/16 05:03 05:41 05:58 WBC 16.5 H RBC 3.36 L Hgb Hct MCV 98 H RDW 13.1 L Plt Count Lymph % (Auto) 8.5 L [place] % (Auto) 7.6 H [place] # 1.3 H Seg Neutrophils % 83.3 H Seg Neuts % (Manual) Lymphocytes % (Manual) Monocytes % (Manual) Seg Neutrophils # 13.8 H Seg Neutrophils # Man Lymphocytes # (Manual) Monocytes # (Manual) Eosinophils # (Manual) Basophils # (Manual) PT INR APTT Heparin Anti-Xa Level POC ABG pH POC ABG pCO2 30.7 L POC ABG pO2 128 H Sodium Potassium Chloride Carbon Dioxide BUN Creatinine Glucose POC Glucose 131 H Calcium Phosphorus Magnesium AST C-Reactive Protein Total Protein Albumin Lipase Vitamin B12 TSH Urine WBC (Auto) Urine Chloride Urine Total Protein Crossmatch 10/16/16 10/16/16 10/16/16 06:32 09:27 09:35 WBC RBC Hgb Hct MCV RDW Plt Count Lymph % (Auto) [place] % (Auto) [place] # Seg Neutrophils % Seg Neuts % (Manual) Lymphocytes % (Manual) Monocytes % (Manual) Seg Neutrophils # Seg Neutrophils # Man Lymphocytes # (Manual) Monocytes # (Manual) Eosinophils # (Manual) Basophils # (Manual) PT INR APTT Heparin Anti-Xa Level POC ABG pH POC ABG pCO2 32.8 L POC ABG pO2 137 H Sodium Potassium Chloride Carbon Dioxide BUN Creatinine Glucose POC Glucose 121 H 150 H Calcium Phosphorus Magnesium AST C-Reactive Protein Total Protein Albumin Lipase Vitamin B12 TSH Urine WBC (Auto) Urine Chloride Urine Total Protein Crossmatch 10/16/16 10/16/16 10/16/16 10:47 13:27 14:24 WBC RBC Hgb Hct MCV RDW Plt Count Lymph % (Auto) [place] % (Auto) [place] # Seg Neutrophils % Seg Neuts % (Manual) Lymphocytes % (Manual) Monocytes % (Manual) Seg Neutrophils # Seg Neutrophils # Man Lymphocytes # (Manual) Monocytes # (Manual) Eosinophils # (Manual) Basophils # (Manual) PT INR APTT Heparin Anti-Xa Level POC ABG pH POC ABG pCO2 POC ABG pO2 Sodium Potassium Chloride Carbon Dioxide BUN Creatinine Glucose POC Glucose 184 H 171 H 174 H Calcium Phosphorus Magnesium AST C-Reactive Protein Total Protein Albumin Lipase Vitamin B12 TSH Urine WBC (Auto) Urine Chloride Urine Total Protein Crossmatch 10/16/16 10/16/16 10/16/16 15:48 16:26 18:17 WBC RBC Hgb Hct MCV RDW Plt Count Lymph % (Auto) [place] % (Auto) [place] # Seg Neutrophils % Seg Neuts % (Manual) Lymphocytes % (Manual) Monocytes % (Manual) Seg Neutrophils # Seg Neutrophils # Man Lymphocytes # (Manual) Monocytes # (Manual) Eosinophils # (Manual) Basophils # (Manual) PT INR APTT Heparin Anti-Xa Level POC ABG pH POC ABG pCO2 POC ABG pO2 Sodium Potassium Chloride Carbon Dioxide BUN Creatinine Glucose POC Glucose 205 H 204 H 234 H Calcium Phosphorus Magnesium AST C-Reactive Protein Total Protein Albumin Lipase Vitamin B12 TSH Urine WBC (Auto) Urine Chloride Urine Total Protein Crossmatch 10/16/16 10/16/16 10/16/16 19:40 20:33 21:36 WBC RBC Hgb Hct MCV RDW Plt Count Lymph % (Auto) [place] % (Auto) [place] # Seg Neutrophils % Seg Neuts % (Manual) Lymphocytes % (Manual) Monocytes % (Manual) Seg Neutrophils # Seg Neutrophils # Man Lymphocytes # (Manual) Monocytes # (Manual) Eosinophils # (Manual) Basophils # (Manual) PT INR APTT Heparin Anti-Xa Level POC ABG pH POC ABG pCO2 POC ABG pO2 Sodium Potassium Chloride Carbon Dioxide BUN Creatinine Glucose POC Glucose 167 H 153 H 158 H Calcium Phosphorus Magnesium AST C-Reactive Protein Total Protein Albumin Lipase Vitamin B12 TSH Urine WBC (Auto) Urine Chloride Urine Total Protein Crossmatch 10/16/16 10/16/16 10/17/16 22:54 23:48 00:47 WBC RBC Hgb Hct MCV RDW Plt Count Lymph % (Auto) [place] % (Auto) [place] # Seg Neutrophils % Seg Neuts % (Manual) Lymphocytes % (Manual) Monocytes % (Manual) Seg Neutrophils # Seg Neutrophils # Man Lymphocytes # (Manual) Monocytes # (Manual) Eosinophils # (Manual) Basophils # (Manual) PT INR APTT Heparin Anti-Xa Level POC ABG pH POC ABG pCO2 POC ABG pO2 Sodium Potassium Chloride Carbon Dioxide BUN Creatinine Glucose POC Glucose 180 H 207 H 196 H Calcium Phosphorus Magnesium AST C-Reactive Protein Total Protein Albumin Lipase Vitamin B12 TSH Urine WBC (Auto) Urine Chloride Urine Total Protein Crossmatch 10/17/16 10/17/16 10/17/16 01:57 02:49 03:50 WBC RBC Hgb Hct MCV RDW Plt Count Lymph % (Auto) [place] % (Auto) [place] # Seg Neutrophils % Seg Neuts % (Manual) Lymphocytes % (Manual) Monocytes % (Manual) Seg Neutrophils # Seg Neutrophils # Man Lymphocytes # (Manual) Monocytes # (Manual) Eosinophils # (Manual) Basophils # (Manual) PT INR APTT Heparin Anti-Xa Level POC ABG pH POC ABG pCO2 POC ABG pO2 Sodium Potassium Chloride Carbon Dioxide BUN Creatinine Glucose POC Glucose 180 H 151 H 106 H Calcium Phosphorus Magnesium AST C-Reactive Protein Total Protein Albumin Lipase Vitamin B12 TSH Urine WBC (Auto) Urine Chloride Urine Total Protein Crossmatch 10/17/16 10/17/16 10/17/16 04:59 06:03 06:35 WBC RBC Hgb Hct MCV RDW Plt Count Lymph % (Auto) [place] % (Auto) [place] # Seg Neutrophils % Seg Neuts % (Manual) Lymphocytes % (Manual) Monocytes % (Manual) Seg Neutrophils # Seg Neutrophils # Man Lymphocytes # (Manual) Monocytes # (Manual) Eosinophils # (Manual) Basophils # (Manual) PT INR APTT Heparin Anti-Xa Level POC ABG pH 7.453 H POC ABG pCO2 30.1 L POC ABG pO2 111 H Sodium Potassium Chloride Carbon Dioxide BUN Creatinine Glucose POC Glucose 145 H 157 H Calcium Phosphorus Magnesium AST C-Reactive Protein Total Protein Albumin Lipase Vitamin B12 TSH Urine WBC (Auto) Urine Chloride Urine Total Protein Crossmatch 10/17/16 10/17/16 10/17/16 07:08 07:11 08:01 WBC RBC Hgb Hct MCV RDW Plt Count Lymph % (Auto) [place] % (Auto) [place] # Seg Neutrophils % Seg Neuts % (Manual) Lymphocytes % (Manual) Monocytes % (Manual) Seg Neutrophils # Seg Neutrophils # Man Lymphocytes # (Manual) Monocytes # (Manual) Eosinophils # (Manual) Basophils # (Manual) PT INR APTT Heparin Anti-Xa Level POC ABG pH POC ABG pCO2 POC ABG pO2 Sodium 147 H Potassium Chloride 113.8 H Carbon Dioxide 19 L BUN Creatinine Glucose 136 H POC Glucose 136 H 152 H Calcium 7.7 L Phosphorus Magnesium AST C-Reactive Protein Total Protein Albumin Lipase Vitamin B12 TSH Urine WBC (Auto) Urine Chloride Urine Total Protein Crossmatch 10/17/16 10/17/16 10/17/16 08:23 09:17 09:53 WBC 18.1 H RBC 3.01 L Hgb 9.7 L Hct 29.4 L MCV 98 H RDW Plt Count 116 L Lymph % (Auto) [place] % (Auto) [place] # Seg Neutrophils % Seg Neuts % (Manual) 77.0 H Lymphocytes % (Manual) 4.0 L Monocytes % (Manual) 12.0 H Seg Neutrophils # Seg Neutrophils # Man 13.9 H Lymphocytes # (Manual) 0.7 L Monocytes # (Manual) 2.2 H Eosinophils # (Manual) Basophils # (Manual) PT INR APTT Heparin Anti-Xa Level POC ABG pH POC ABG pCO2 POC ABG pO2 Sodium Potassium Chloride Carbon Dioxide BUN Creatinine Glucose POC Glucose 148 H 137 H Calcium Phosphorus Magnesium AST C-Reactive Protein Total Protein Albumin Lipase Vitamin B12 TSH Urine WBC (Auto) Urine Chloride Urine Total Protein Crossmatch 10/17/16 10/17/16 10/17/16 11:43 16:07 17:42 WBC RBC Hgb Hct MCV RDW Plt Count Lymph % (Auto) [place] % (Auto) [place] # Seg Neutrophils % Seg Neuts % (Manual) Lymphocytes % (Manual) Monocytes % (Manual) Seg Neutrophils # Seg Neutrophils # Man Lymphocytes # (Manual) Monocytes # (Manual) Eosinophils # (Manual) Basophils # (Manual) PT 16.4 H INR 1.33 H APTT 38.8 H Heparin Anti-Xa Level POC ABG pH POC ABG pCO2 POC ABG pO2 Sodium Potassium Chloride Carbon Dioxide BUN Creatinine Glucose POC Glucose 179 H 153 H Calcium Phosphorus Magnesium AST C-Reactive Protein Total Protein Albumin Lipase Vitamin B12 TSH Urine WBC (Auto) Urine Chloride Urine Total Protein Crossmatch 10/17/16 10/18/16 10/18/16 22:54 04:37 05:39 WBC RBC Hgb Hct MCV RDW Plt Count Lymph % (Auto) [place] % (Auto) [place] # Seg Neutrophils % Seg Neuts % (Manual) Lymphocytes % (Manual) Monocytes % (Manual) Seg Neutrophils # Seg Neutrophils # Man Lymphocytes # (Manual) Monocytes # (Manual) Eosinophils # (Manual) Basophils # (Manual) PT INR APTT Heparin Anti-Xa Level 0.27 L POC ABG pH 7.454 H POC ABG pCO2 30.8 L POC ABG pO2 115 H Sodium Potassium Chloride Carbon Dioxide BUN Creatinine Glucose POC Glucose 69 L Calcium Phosphorus Magnesium AST C-Reactive Protein Total Protein Albumin Lipase Vitamin B12 TSH Urine WBC (Auto) Urine Chloride Urine Total Protein Crossmatch 10/18/16 10/18/16 10/18/16 06:46 06:46 06:46 WBC 20.5 H RBC 2.62 L Hgb 8.4 L Hct 26.0 L MCV 100 H RDW Plt Count Lymph % (Auto) [place] % (Auto) [place] # Seg Neutrophils % Seg Neuts % (Manual) 75.0 H Lymphocytes % (Manual) 9.0 L Monocytes % (Manual) 14.0 H Seg Neutrophils # Seg Neutrophils # Man 15.4 H Lymphocytes # (Manual) Monocytes # (Manual) 2.9 H Eosinophils # (Manual) Basophils # (Manual) PT INR APTT Heparin Anti-Xa Level POC ABG pH POC ABG pCO2 POC ABG pO2 Sodium Potassium Chloride 110.6 H Carbon Dioxide BUN Creatinine 1.3 H Glucose 153 H POC Glucose Calcium 8.0 L Phosphorus Magnesium 1.6 L AST C-Reactive Protein Total Protein Albumin Lipase Vitamin B12 TSH Urine WBC (Auto) Urine Chloride Urine Total Protein Crossmatch 10/18/16 10/18/16 10/18/16 07:30 11:37 17:51 WBC RBC Hgb Hct MCV RDW Plt Count Lymph % (Auto) [place] % (Auto) [place] # Seg Neutrophils % Seg Neuts % (Manual) Lymphocytes % (Manual) Monocytes % (Manual) Seg Neutrophils # Seg Neutrophils # Man Lymphocytes # (Manual) Monocytes # (Manual) Eosinophils # (Manual) Basophils # (Manual) PT INR APTT Heparin Anti-Xa Level POC ABG pH POC ABG pCO2 POC ABG pO2 Sodium Potassium Chloride Carbon Dioxide BUN Creatinine Glucose POC Glucose 162 H 156 H 164 H Calcium Phosphorus Magnesium AST C-Reactive Protein Total Protein Albumin Lipase Vitamin B12 TSH Urine WBC (Auto) Urine Chloride Urine Total Protein Crossmatch 10/18/16 10/19/16 10/19/16 23:44 03:59 05:13 WBC 18.2 H RBC 2.76 L Hgb 9.0 L Hct 27.7 L MCV 100 H RDW Plt Count Lymph % (Auto) [place] % (Auto) [place] # Seg Neutrophils % Seg Neuts % (Manual) 76.0 H Lymphocytes % (Manual) 10.0 L Monocytes % (Manual) Seg Neutrophils # Seg Neutrophils # Man 13.8 H Lymphocytes # (Manual) Monocytes # (Manual) Eosinophils # (Manual) Basophils # (Manual) PT INR APTT Heparin Anti-Xa Level POC ABG pH POC ABG pCO2 32.2 L POC ABG pO2 128 H Sodium Potassium Chloride Carbon Dioxide BUN Creatinine Glucose POC Glucose 278 H Calcium Phosphorus Magnesium AST C-Reactive Protein Total Protein Albumin Lipase Vitamin B12 TSH Urine WBC (Auto) Urine Chloride Urine Total Protein Crossmatch 10/19/16 10/19/16 10/19/16 06:01 06:30 12:20 WBC RBC Hgb Hct MCV RDW Plt Count Lymph % (Auto) [place] % (Auto) [place] # Seg Neutrophils % Seg Neuts % (Manual) Lymphocytes % (Manual) Monocytes % (Manual) Seg Neutrophils # Seg Neutrophils # Man Lymphocytes # (Manual) Monocytes # (Manual) Eosinophils # (Manual) Basophils # (Manual) PT INR APTT Heparin Anti-Xa Level POC ABG pH POC ABG pCO2 POC ABG pO2 Sodium Potassium Chloride Carbon Dioxide 18 L BUN Creatinine 1.3 H Glucose 262 H POC Glucose 261 H 349 H Calcium 7.7 L Phosphorus 4.8 H D Magnesium AST C-Reactive Protein Total Protein Albumin Lipase Vitamin B12 TSH Urine WBC (Auto) Urine Chloride Urine Total Protein Crossmatch 10/19/16 10/20/16 10/20/16 16:48 00:17 05:20 WBC 22.5 H RBC 2.80 L Hgb 8.9 L Hct 28.3 L MCV 101 H RDW Plt Count Lymph % (Auto) [place] % (Auto) [place] # Seg Neutrophils % Seg Neuts % (Manual) Lymphocytes % (Manual) 10.0 L Monocytes % (Manual) Seg Neutrophils # Seg Neutrophils # Man 13.3 H Lymphocytes # (Manual) Monocytes # (Manual) 1.1 H Eosinophils # (Manual) 0.7 H Basophils # (Manual) PT INR APTT Heparin Anti-Xa Level POC ABG pH POC ABG pCO2 POC ABG pO2 Sodium Potassium Chloride Carbon Dioxide BUN Creatinine Glucose POC Glucose 248 H 346 H Calcium Phosphorus Magnesium AST C-Reactive Protein Total Protein Albumin Lipase Vitamin B12 TSH Urine WBC (Auto) Urine Chloride Urine Total Protein Crossmatch 10/20/16 10/20/16 10/20/16 05:20 05:20 06:05 WBC RBC Hgb Hct MCV RDW Plt Count Lymph % (Auto) [place] % (Auto) [place] # Seg Neutrophils % Seg Neuts % (Manual) Lymphocytes % (Manual) Monocytes % (Manual) Seg Neutrophils # Seg Neutrophils # Man Lymphocytes # (Manual) Monocytes # (Manual) Eosinophils # (Manual) Basophils # (Manual) PT INR APTT Heparin Anti-Xa Level 0.20 L POC ABG pH POC ABG pCO2 POC ABG pO2 Sodium Potassium Chloride Carbon Dioxide BUN 20 H Creatinine Glucose 374 H POC Glucose 337 H Calcium 8.3 L Phosphorus Magnesium AST C-Reactive Protein Total Protein Albumin Lipase Vitamin B12 TSH Urine WBC (Auto) Urine Chloride Urine Total Protein Crossmatch 10/20/16 10/20/16 10/20/16 11:49 13:59 17:56 WBC RBC Hgb Hct MCV RDW Plt Count Lymph % (Auto) [place] % (Auto) [place] # Seg Neutrophils % Seg Neuts % (Manual) Lymphocytes % (Manual) Monocytes % (Manual) Seg Neutrophils # Seg Neutrophils # Man Lymphocytes # (Manual) Monocytes # (Manual) Eosinophils # (Manual) Basophils # (Manual) PT INR APTT Heparin Anti-Xa Level 2.00 H POC ABG pH POC ABG pCO2 POC ABG pO2 Sodium Potassium Chloride Carbon Dioxide BUN Creatinine Glucose POC Glucose 305 H 362 H Calcium Phosphorus Magnesium AST C-Reactive Protein Total Protein Albumin Lipase Vitamin B12 TSH Urine WBC (Auto) Urine Chloride Urine Total Protein Crossmatch 10/20/16 10/21/16 10/21/16 23:52 05:00 05:49 WBC 22.9 H RBC 2.49 L Hgb 7.7 L Hct 25.6 L MCV 103 H RDW Plt Count Lymph % (Auto) [place] % (Auto) [place] # Seg Neutrophils % Seg Neuts % (Manual) 94.0 H Lymphocytes % (Manual) 1.0 L Monocytes % (Manual) Seg Neutrophils # Seg Neutrophils # Man 21.5 H Lymphocytes # (Manual) 0.2 L Monocytes # (Manual) 1.1 H Eosinophils # (Manual) Basophils # (Manual) PT INR APTT Heparin Anti-Xa Level POC ABG pH POC ABG pCO2 POC ABG pO2 Sodium Potassium Chloride Carbon Dioxide BUN Creatinine Glucose POC Glucose 252 H 180 H Calcium Phosphorus Magnesium AST C-Reactive Protein Total Protein Albumin Lipase Vitamin B12 TSH Urine WBC (Auto) Urine Chloride Urine Total Protein Crossmatch 10/21/16 10/21/16 10/21/16 11:47 11:49 14:10 WBC RBC Hgb Hct MCV RDW Plt Count Lymph % (Auto) [place] % (Auto) [place] # Seg Neutrophils % Seg Neuts % (Manual) Lymphocytes % (Manual) Monocytes % (Manual) Seg Neutrophils # Seg Neutrophils # Man Lymphocytes # (Manual) Monocytes # (Manual) Eosinophils # (Manual) Basophils # (Manual) PT INR APTT Heparin Anti-Xa Level POC ABG pH POC ABG pCO2 POC ABG pO2 Sodium Potassium Chloride Carbon Dioxide BUN Creatinine Glucose POC Glucose 50 L 56 L 140 H Calcium Phosphorus Magnesium AST C-Reactive Protein Total Protein Albumin Lipase Vitamin B12 TSH Urine WBC (Auto) Urine Chloride Urine Total Protein Crossmatch 10/21/16 10/21/16 10/22/16 18:24 Unknown 00:07 WBC RBC Hgb Hct MCV RDW Plt Count Lymph % (Auto) [place] % (Auto) [place] # Seg Neutrophils % Seg Neuts % (Manual) Lymphocytes % (Manual) Monocytes % (Manual) Seg Neutrophils # Seg Neutrophils # Man Lymphocytes # (Manual) Monocytes # (Manual) Eosinophils # (Manual) Basophils # (Manual) PT INR APTT Heparin Anti-Xa Level POC ABG pH POC ABG pCO2 POC ABG pO2 Sodium 150 H Potassium 3.1 L Chloride 112.4 H Carbon Dioxide BUN 25 H Creatinine 1.4 H Glucose POC Glucose 175 H 218 H Calcium 8.0 L Phosphorus Magnesium AST C-Reactive Protein Total Protein Albumin Lipase Vitamin B12 TSH Urine WBC (Auto) Urine Chloride Urine Total Protein Crossmatch 10/22/16 10/22/16 10/22/16 04:20 04:20 10:25 WBC 20.8 H RBC 2.37 L Hgb 7.5 L Hct 23.9 L MCV 101 H RDW Plt Count Lymph % (Auto) [place] % (Auto) [place] # Seg Neutrophils % Seg Neuts % (Manual) 89.0 H Lymphocytes % (Manual) 7.0 L Monocytes % (Manual) Seg Neutrophils # Seg Neutrophils # Man 18.5 H Lymphocytes # (Manual) Monocytes # (Manual) Eosinophils # (Manual) Basophils # (Manual) 0.2 H PT INR APTT Heparin Anti-Xa Level POC ABG pH POC ABG pCO2 POC ABG pO2 Sodium 148 H Potassium 2.9 L* Chloride 109.4 H Carbon Dioxide BUN 26 H Creatinine Glucose 140 H POC Glucose Calcium 7.5 L Phosphorus Magnesium AST C-Reactive Protein Total Protein Albumin Lipase Vitamin B12 976.8 H TSH Urine WBC (Auto) Urine Chloride Urine Total Protein Crossmatch 10/22/16 10/22/16 10/22/16 10:25 14:50 18:16 WBC RBC Hgb Hct MCV RDW Plt Count Lymph % (Auto) [place] % (Auto) [place] # Seg Neutrophils % Seg Neuts % (Manual) Lymphocytes % (Manual) Monocytes % (Manual) Seg Neutrophils # Seg Neutrophils # Man Lymphocytes # (Manual) Monocytes # (Manual) Eosinophils # (Manual) Basophils # (Manual) PT INR APTT Heparin Anti-Xa Level POC ABG pH POC ABG pCO2 POC ABG pO2 Sodium Potassium Chloride Carbon Dioxide BUN Creatinine Glucose POC Glucose 193 H Calcium Phosphorus Magnesium AST C-Reactive Protein Total Protein Albumin Lipase Vitamin B12 TSH 0.143 L 0.162 L Urine WBC (Auto) Urine Chloride Urine Total Protein Crossmatch 10/22/16 10/22/16 10/22/16 20:00 20:00 20:00 WBC 24.1 H RBC 2.58 L Hgb 8.2 L Hct 26.4 L MCV 102 H RDW Plt Count Lymph % (Auto) [place] % (Auto) [place] # Seg Neutrophils % Seg Neuts % (Manual) 74.0 H Lymphocytes % (Manual) 7.0 L Monocytes % (Manual) Seg Neutrophils # Seg Neutrophils # Man 17.8 H Lymphocytes # (Manual) Monocytes # (Manual) Eosinophils # (Manual) Basophils # (Manual) PT INR APTT Heparin Anti-Xa Level 1.92 H POC ABG pH POC ABG pCO2 POC ABG pO2 Sodium Potassium Chloride Carbon Dioxide BUN Creatinine Glucose POC Glucose Calcium Phosphorus Magnesium AST C-Reactive Protein Total Protein Albumin Lipase Vitamin B12 TSH Urine WBC (Auto) Urine Chloride Urine Total Protein Crossmatch See Detail 10/23/16 10/23/16 10/23/16 00:21 06:09 12:07 WBC RBC Hgb Hct MCV RDW Plt Count Lymph % (Auto) [place] % (Auto) [place] # Seg Neutrophils % Seg Neuts % (Manual) Lymphocytes % (Manual) Monocytes % (Manual) Seg Neutrophils # Seg Neutrophils # Man Lymphocytes # (Manual) Monocytes # (Manual) Eosinophils # (Manual) Basophils # (Manual) PT INR APTT Heparin Anti-Xa Level POC ABG pH POC ABG pCO2 POC ABG pO2 Sodium Potassium Chloride Carbon Dioxide BUN Creatinine Glucose POC Glucose 283 H 241 H 340 H Calcium Phosphorus Magnesium AST C-Reactive Protein Total Protein Albumin Lipase Vitamin B12 TSH Urine WBC (Auto) Urine Chloride Urine Total Protein Crossmatch 10/23/16 10/23/16 10/23/16 14:01 16:00 17:59 WBC RBC Hgb Hct MCV RDW Plt Count Lymph % (Auto) [place] % (Auto) [place] # Seg Neutrophils % Seg Neuts % (Manual) Lymphocytes % (Manual) Monocytes % (Manual) Seg Neutrophils # Seg Neutrophils # Man Lymphocytes # (Manual) Monocytes # (Manual) Eosinophils # (Manual) Basophils # (Manual) PT INR APTT Heparin Anti-Xa Level 0.19 L POC ABG pH POC ABG pCO2 32.4 L POC ABG pO2 Sodium Potassium Chloride Carbon Dioxide BUN Creatinine Glucose POC Glucose 245 H Calcium Phosphorus Magnesium AST C-Reactive Protein Total Protein Albumin Lipase Vitamin B12 TSH Urine WBC (Auto) Urine Chloride Urine Total Protein Crossmatch 10/23/16 10/23/16 10/23/16 22:55 Unknown Unknown WBC 22.6 H RBC 3.26 L Hgb Hct MCV RDW 17.1 H Plt Count Lymph % (Auto) [place] % (Auto) [place] # Seg Neutrophils % Seg Neuts % (Manual) Lymphocytes % (Manual) 11.0 L Monocytes % (Manual) Seg Neutrophils # Seg Neutrophils # Man 14.0 H Lymphocytes # (Manual) Monocytes # (Manual) Eosinophils # (Manual) Basophils # (Manual) PT INR APTT Heparin Anti-Xa Level 0.17 L 0.15 L POC ABG pH POC ABG pCO2 POC ABG pO2 Sodium Potassium Chloride Carbon Dioxide BUN Creatinine Glucose POC Glucose Calcium Phosphorus Magnesium AST C-Reactive Protein Total Protein Albumin Lipase Vitamin B12 TSH Urine WBC (Auto) Urine Chloride Urine Total Protein Crossmatch 10/23/16 10/24/16 10/24/16 Unknown 00:05 05:30 WBC RBC Hgb Hct MCV RDW Plt Count Lymph % (Auto) [place] % (Auto) [place] # Seg Neutrophils % Seg Neuts % (Manual) Lymphocytes % (Manual) Monocytes % (Manual) Seg Neutrophils # Seg Neutrophils # Man Lymphocytes # (Manual) Monocytes # (Manual) Eosinophils # (Manual) Basophils # (Manual) PT INR APTT Heparin Anti-Xa Level 0.13 L POC ABG pH POC ABG pCO2 POC ABG pO2 Sodium Potassium Chloride 111.2 H Carbon Dioxide 20 L BUN 25 H Creatinine Glucose 227 H POC Glucose 118 H Calcium 7.1 L Phosphorus Magnesium AST C-Reactive Protein Total Protein Albumin Lipase Vitamin B12 TSH Urine WBC (Auto) Urine Chloride Urine Total Protein Crossmatch 10/24/16 10/24/16 10/24/16 11:00 11:00 12:06 WBC 17.6 H RBC 2.92 L Hgb 9.2 L Hct 28.3 L MCV RDW 16.9 H Plt Count Lymph % (Auto) [place] % (Auto) [place] # Seg Neutrophils % Seg Neuts % (Manual) Lymphocytes % (Manual) Monocytes % (Manual) Seg Neutrophils # Seg Neutrophils # Man Lymphocytes # (Manual) Monocytes # (Manual) Eosinophils # (Manual) Basophils # (Manual) PT INR APTT Heparin Anti-Xa Level 0.27 L POC ABG pH POC ABG pCO2 POC ABG pO2 Sodium Potassium Chloride Carbon Dioxide BUN Creatinine Glucose POC Glucose 166 H Calcium Phosphorus Magnesium AST C-Reactive Protein Total Protein Albumin Lipase Vitamin B12 TSH Urine WBC (Auto) Urine Chloride Urine Total Protein Crossmatch 10/24/16 10/25/16 10/25/16 12:27 00:49 03:30 WBC RBC Hgb 8.8 L Hct 28.1 L MCV RDW Plt Count Lymph % (Auto) [place] % (Auto) [place] # Seg Neutrophils % Seg Neuts % (Manual) Lymphocytes % (Manual) Monocytes % (Manual) Seg Neutrophils # Seg Neutrophils # Man Lymphocytes # (Manual) Monocytes # (Manual) Eosinophils # (Manual) Basophils # (Manual) PT INR APTT Heparin Anti-Xa Level POC ABG pH POC ABG pCO2 33.9 L POC ABG pO2 Sodium Potassium Chloride Carbon Dioxide BUN Creatinine Glucose POC Glucose 121 H Calcium Phosphorus Magnesium AST C-Reactive Protein Total Protein Albumin Lipase Vitamin B12 TSH Urine WBC (Auto) Urine Chloride Urine Total Protein Crossmatch 10/25/16 10/25/16 10/25/16 09:49 12:10 19:25 WBC 21.1 H RBC 3.02 L Hgb 9.3 L Hct 28.9 L MCV RDW 16.3 H Plt Count Lymph % (Auto) [place] % (Auto) [place] # Seg Neutrophils % Seg Neuts % (Manual) 81.0 H Lymphocytes % (Manual) 9.0 L Monocytes % (Manual) Seg Neutrophils # Seg Neutrophils # Man 17.1 H Lymphocytes # (Manual) Monocytes # (Manual) Eosinophils # (Manual) Basophils # (Manual) PT INR APTT Heparin Anti-Xa Level POC ABG pH POC ABG pCO2 POC ABG pO2 Sodium Potassium Chloride Carbon Dioxide BUN Creatinine Glucose POC Glucose 158 H 151 H Calcium Phosphorus Magnesium AST C-Reactive Protein Total Protein Albumin Lipase Vitamin B12 TSH Urine WBC (Auto) Urine Chloride Urine Total Protein Crossmatch 10/26/16 10/26/16 10/26/16 00:20 01:09 05:02 WBC 22.2 H RBC 2.89 L Hgb 8.7 L Hct 27.8 L MCV RDW 16.4 H Plt Count Lymph % (Auto) [place] % (Auto) [place] # Seg Neutrophils % Seg Neuts % (Manual) Lymphocytes % (Manual) Monocytes % (Manual) Seg Neutrophils # Seg Neutrophils # Man Lymphocytes # (Manual) Monocytes # (Manual) Eosinophils # (Manual) Basophils # (Manual) PT INR APTT Heparin Anti-Xa Level POC ABG pH POC ABG pCO2 POC ABG pO2 Sodium Potassium Chloride Carbon Dioxide BUN Creatinine Glucose POC Glucose 44 L 112 H Calcium Phosphorus Magnesium AST C-Reactive Protein Total Protein Albumin Lipase Vitamin B12 TSH Urine WBC (Auto) Urine Chloride Urine Total Protein Crossmatch 10/26/16 10/26/16 10/26/16 05:02 12:11 12:14 WBC RBC Hgb Hct MCV RDW Plt Count Lymph % (Auto) [place] % (Auto) [place] # Seg Neutrophils % Seg Neuts % (Manual) Lymphocytes % (Manual) Monocytes % (Manual) Seg Neutrophils # Seg Neutrophils # Man Lymphocytes # (Manual) Monocytes # (Manual) Eosinophils # (Manual) Basophils # (Manual) PT INR APTT Heparin Anti-Xa Level POC ABG pH POC ABG pCO2 32.0 L POC ABG pO2 33 L Sodium Potassium 3.2 L D Chloride Carbon Dioxide 20 L BUN 24 H Creatinine Glucose 104 H POC Glucose 194 H Calcium 7.7 L Phosphorus Magnesium AST C-Reactive Protein Total Protein Albumin Lipase Vitamin B12 TSH Urine WBC (Auto) Urine Chloride Urine Total Protein Crossmatch 10/26/16 10/26/16 10/27/16 15:28 17:23 00:04 WBC RBC Hgb Hct MCV RDW Plt Count Lymph % (Auto) [place] % (Auto) [place] # Seg Neutrophils % Seg Neuts % (Manual) Lymphocytes % (Manual) Monocytes % (Manual) Seg Neutrophils # Seg Neutrophils # Man Lymphocytes # (Manual) Monocytes # (Manual) Eosinophils # (Manual) Basophils # (Manual) PT INR APTT Heparin Anti-Xa Level POC ABG pH POC ABG pCO2 33.7 L POC ABG pO2 Sodium Potassium Chloride Carbon Dioxide BUN Creatinine Glucose POC Glucose 181 H 230 H Calcium Phosphorus Magnesium AST C-Reactive Protein Total Protein Albumin Lipase Vitamin B12 TSH Urine WBC (Auto) Urine Chloride Urine Total Protein Crossmatch 10/27/16 10/27/16 10/27/16 05:15 05:15 05:38 WBC 25.5 H RBC 3.07 L Hgb 9.4 L Hct 30.1 L MCV 98 H RDW 16.4 H Plt Count 527 H Lymph % (Auto) [place] % (Auto) [place] # Seg Neutrophils % Seg Neuts % (Manual) Lymphocytes % (Manual) Monocytes % (Manual) Seg Neutrophils # Seg Neutrophils # Man Lymphocytes # (Manual) Monocytes # (Manual) Eosinophils # (Manual) Basophils # (Manual) PT INR APTT Heparin Anti-Xa Level POC ABG pH POC ABG pCO2 POC ABG pO2 Sodium Potassium Chloride Carbon Dioxide 19 L BUN 23 H Creatinine Glucose 160 H POC Glucose 168 H Calcium 8.0 L Phosphorus Magnesium AST C-Reactive Protein Total Protein Albumin Lipase Vitamin B12 TSH Urine WBC (Auto) Urine Chloride Urine Total Protein Crossmatch 10/27/16 10/27/16 10/27/16 11:59 18:35 23:48 WBC RBC Hgb Hct MCV RDW Plt Count Lymph % (Auto) [place] % (Auto) [place] # Seg Neutrophils % Seg Neuts % (Manual) Lymphocytes % (Manual) Monocytes % (Manual) Seg Neutrophils # Seg Neutrophils # Man Lymphocytes # (Manual) Monocytes # (Manual) Eosinophils # (Manual) Basophils # (Manual) PT INR APTT Heparin Anti-Xa Level POC ABG pH POC ABG pCO2 POC ABG pO2 Sodium Potassium Chloride Carbon Dioxide BUN Creatinine Glucose POC Glucose 197 H 318 H 316 H Calcium Phosphorus Magnesium AST C-Reactive Protein Total Protein Albumin Lipase Vitamin B12 TSH Urine WBC (Auto) Urine Chloride Urine Total Protein Crossmatch 10/28/16 10/28/16 10/28/16 03:13 04:10 04:10 WBC 18.8 H RBC 2.64 L Hgb 8.1 L Hct 26.1 L MCV 99 H RDW 16.2 H Plt Count 544 H Lymph % (Auto) [place] % (Auto) [place] # Seg Neutrophils % Seg Neuts % (Manual) Lymphocytes % (Manual) Monocytes % (Manual) Seg Neutrophils # Seg Neutrophils # Man Lymphocytes # (Manual) Monocytes # (Manual) Eosinophils # (Manual) Basophils # (Manual) PT INR APTT Heparin Anti-Xa Level POC ABG pH POC ABG pCO2 POC ABG pO2 Sodium Potassium Chloride Carbon Dioxide 21 L BUN 24 H Creatinine Glucose 302 H POC Glucose 304 H Calcium 7.7 L Phosphorus Magnesium AST C-Reactive Protein Total Protein Albumin Lipase Vitamin B12 TSH Urine WBC (Auto) Urine Chloride Urine Total Protein Crossmatch 10/28/16 10/28/16 04:10 12:36 WBC RBC Hgb Hct MCV RDW Plt Count Lymph % (Auto) [place] % (Auto) [place] # Seg Neutrophils % Seg Neuts % (Manual) Lymphocytes % (Manual) Monocytes % (Manual) Seg Neutrophils # Seg Neutrophils # Man Lymphocytes # (Manual) Monocytes # (Manual) Eosinophils # (Manual) Basophils # (Manual) PT INR APTT Heparin Anti-Xa Level 0.20 L POC ABG pH POC ABG pCO2 POC ABG pO2 Sodium Potassium Chloride Carbon Dioxide BUN Creatinine Glucose POC Glucose 205 H Calcium Phosphorus Magnesium AST C-Reactive Protein Total Protein Albumin Lipase Vitamin B12 TSH Urine WBC (Auto) Urine Chloride Urine Total Protein Crossmatch Chest x-ray: image reviewed Allied health notes reviewed: RT
--- NOTE | 2016-10-28 19:00 | Cat Scan Report ---
FINAL REPORT PROCEDURE: CT ABDOMEN PELVIS WO CON TECHNIQUE: Computerized axial tomography of the abdomen and pelvis was performed without intravenous contrast. This study is performed without intravascular contrast material and its sensitivity for abdominal and pelvic pathology, including neoplasms, inflammation, abscess, free fluid, thrombosis, arterial dissection and infarction, is reduced compared with a contrast enhanced study. HISTORY: ABSCESS/ PANCREATITIS COMPARISON: 10/13/2016 FINDINGS: Visualized lower thorax: Bilateral posterior airspace pulmonary opacities, with air bronchograms may be related to atelectasis or infiltrates. Liver: Normal size and attenuation. Spleen: Normal size and attenuation. Gallbladder and biliary system: There has been cholecystectomy. Pancreas: Mild haziness surrounding the pancreatic head is mildly improved. Adrenals: Normal. Kidneys: Normal. GI tract: Nasogastric tube tip is in the mid stomach. Stomach is mildly distended. Rectal tube is present. There are air-fluid levels throughout the colon, compatible with diarrhea producing illness. There is diverticulosis. No evidence of bowel obstruction or acute inflammation. Lymph nodes and mesentery: Normal. Vasculature: Normal. Bladder: Jones catheter is present. Reproductive organs: Uterus is not visualized. Peritoneum: No free fluid. Musculoskeletal structures: Degenerative disc changes of the lower lumbar spine. Other: There is circumferential subcutaneous edema. There is limited evaluation for intra-abdominal abscess due to lack of contrast, however no obvious abscess is seen. IMPRESSION: Mild previously seen haziness surrounding the pancreas appears mildly improved. Air-fluid levels throughout the colon suggests diarrhea producing illness. No evidence of bowel obstruction or acute bowel inflammation. Bilateral lung base airspace opacities may be related to pneumonia and/or atelectasis.
--- NOTE | 2016-10-28 21:00 | Progress Note ---
Subjective Date of service: 10/28/16 Principal diagnosis: respiratory failure on mechanical ventilatory support, DKA Interval history: AWAKE. Fever Vital signs - Temp 102 CHEST - GOOD AIR ENTRY CVS - S1S2 ABD - BS_ LABS See lab section. ASSESSMENT 1. Sepsis 2. dka 3. resp failure 4. htn 5. clostridium difficile colitis 6. bilateral pneumonia RECOMMENDATION 1. cbc/bmp in am 2. clindamycin and levaquin Objective - Constitutional Vitals: Vital Signs Temp Pulse Resp BP Pulse Ox 101.1 F H 94 H 18 149/72 100 10/28/16 16:00 10/28/16 20:11 10/28/16 20:00 10/28/16 20:11 10/28/16 20:11 Temperature -Last 24 Hours Temperature 101.1 F Temperature 100.0 F Temperature 102.2 F Temperature 101.9 F Temperature 99.7 F - Labs CBC & Chem 7: 10/28/16 04:10 10/28/16 04:10 Labs: Abnormal lab results 10/27/16 10/28/16 10/28/16 Range/Units 23:48 03:13 04:10 WBC 18.8 H (4.5-11.0) K/mm3 RBC 2.64 L (3.65-5.03) M/mm3 Hgb 8.1 L (10.1-14.3) gm/dl Hct 26.1 L (30.3-42.9) % MCV 99 H (79-97) fl RDW 16.2 H (13.2-15.2) % Plt Count 544 H (140-440) K/mm3 Heparin Anti-Xa Level (0.3-0.7) U.I./ml Carbon Dioxide (22-30) mmol/L BUN (7-17) mg/dL Glucose (65-100) mg/dL POC Glucose 316 H 304 H (70-105) Calcium (8.4-10.2) mg/dL 10/28/16 10/28/16 10/28/16 Range/Units 04:10 04:10 12:36 WBC (4.5-11.0) K/mm3 RBC (3.65-5.03) M/mm3 Hgb (10.1-14.3) gm/dl Hct (30.3-42.9) % MCV (79-97) fl RDW (13.2-15.2) % Plt Count (140-440) K/mm3 Heparin Anti-Xa Level 0.20 L (0.3-0.7) U.I./ml Carbon Dioxide 21 L (22-30) mmol/L BUN 24 H (7-17) mg/dL Glucose 302 H (65-100) mg/dL POC Glucose 205 H (70-105) Calcium 7.7 L (8.4-10.2) mg/dL 10/28/16 Range/Units 18:27 WBC (4.5-11.0) K/mm3 RBC (3.65-5.03) M/mm3 Hgb (10.1-14.3) gm/dl Hct (30.3-42.9) % MCV (79-97) fl RDW (13.2-15.2) % Plt Count (140-440) K/mm3 Heparin Anti-Xa Level (0.3-0.7) U.I./ml Carbon Dioxide (22-30) mmol/L BUN (7-17) mg/dL Glucose (65-100) mg/dL POC Glucose 339 H (70-105) Calcium (8.4-10.2) mg/dL
[2016-10-28] MEDS: LEVAQUIN 750MG/150ML 750 MG/150 ML BAG IV SCH (22:36)
[2016-10-28] MEDS: CLEOCIN 600 MG/50 mL 600 MG/50 ML BAG IV SCH (22:55)
[2016-10-29] MEDS: CARDIZEM IV PRN ×3 (00:54→22:02)
[2016-10-29] MEDS: HEPARIN/ 0.45% NACL-25,000 UNIT/500 ML 25,000 UNITS/500 ML BAG IV SCH ×2 (01:28→15:23)
[2016-10-29] MEDS: fentaNYL DRIP Premix 2,000 MCG/100 ML BAG IV SCH ×5 (02:12→22:27)
[2016-10-29] MEDS: FLAGYL PO SCH ×2 (06:02→22:26)
[2016-10-29] MEDS: LOPRESSOR FEEDTUBE SCH ×2 (06:02→22:03)
[2016-10-29] MEDS: CLEOCIN 600 MG/50 mL 600 MG/50 ML BAG IV SCH ×3 (06:03→22:03)
[2016-10-29 10:21] LABS: Hematocrit 26.7 % (30.3-42.9); Hemoglobin 8.5 gm/dl (10.1-14.3); Mean Corpuscular HGB Conc 32 % (30-34); Mean Corpuscular Hemoglobin 30 pg (28-32); Mean Corpuscular Volume 95 fl (79-97); Platelet Count 571 K/mm3 (140-440); Red Cell Distribution Width 15.4 % (13.2-15.2)
[2016-10-29 10:29] LABS: White Blood Count 20.3 K/mm3 (4.5-11.0)
[2016-10-29 11:09] LABS: Basophils % (Manual) 0 % (0.0-1.8); Blastocytes % (Manual) 0 %; Eosinophils % (Manual) 0 % (0.0-4.3)
[2016-10-29 11:10] LABS: Hypochromasia Few; Platelet Estimate Appears Increased; Polychromasia 1+
[2016-10-29 11:11] LABS: Diff Status Complete; Giant Platelets Few; Large Platelets Few
--- NOTE | 2016-10-29 13:36 | Progress Note ---
Assessment and Plan - Patient Problems (1) Acute respiratory failure with hypercapnia Current Visit: Yes Status: Acute Plan to address problem: - continue aspiration precautions / VAP bundles - continue bronchodilators and pulmonary toilet - wean oxygen to keep sats > 94% - resume graded weaning at Psupp of 20 cmH2O - ETT day # 13-14 and will need a tracheostomy (2) Altered mental status Current Visit: Yes Status: Acute Qualifiers: Altered mental status type: A Coma depth: C Coma timing: C Plan to address problem: - no active seizures - following clinically - seen by neurology and will follow their recommendations - no seizures on EEG (3) LUCY (acute kidney injury) Current Visit: Yes Status: Acute Plan to address problem: - replaced potassium - continue free water flushes - follow I's & O's - resolved essentially - non-oliguric (4) DKA (diabetic ketoacidoses) Current Visit: Yes Status: Acute Qualifiers: Diabetes mellitus type: D Diabetes mellitus complication detail: D Plan to address problem: - off IV insulin - continue SSI - resolved (5) Sepsis Current Visit: No Status: Acute Qualifiers: Sepsis type: S Plan to address problem: (Suspect patient will need right foot intervention / amputation before she will show significant improvement clinically) - continue anti-infectives per ID recs - follow clinically - trend lactate and CRP prn (6) Tachycardia Current Visit: Yes Status: Acute Plan to address problem: - improved with beta-blockade (7) Discharge planning issues Current Visit: No Status: Acute Plan to address problem: - not accepted by [facility] ...remains critically ill on life sustaining treatments including MVS and at high risk for further deterioration including ...32' CCT Subjective Date of service: 10/29/16 Principal diagnosis: respiratory failure on mechanical ventilatory support, DKA Interval history: Seen and examined at bedside; 24 hour events reviewed; nursing and respiratory care staff consulted; no adverse overnight events reported to me; still a difficult wean; awaiting tracheostomy placement; leucocytosis is persistent Objective Vital Signs - 12hr 10/29/16 10/29/16 10/29/16 02:00 03:00 04:00 Temperature 99.5 F Pulse Rate 129 H 122 H 127 H Pulse Rate [ 122 H From Monitor] Respiratory 17 19 18 Rate Blood Pressure 157/87 142/76 136/70 O2 Sat by Pulse 100 100 100 Oximetry 10/29/16 10/29/16 10/29/16 05:00 05:22 06:00 Temperature Pulse Rate 127 H 130 H 123 H Pulse Rate [ From Monitor] Respiratory 20 22 Rate Blood Pressure 153/87 153/87 148/78 O2 Sat by Pulse 100 100 100 Oximetry 10/29/16 10/29/16 10/29/16 06:02 07:00 07:57 Temperature Pulse Rate 131 H 125 H 124 H Pulse Rate [ From Monitor] Respiratory 26 H Rate Blood Pressure 153/87 150/83 150/83 O2 Sat by Pulse 100 100 Oximetry 10/29/16 10/29/16 10/29/16 08:00 09:00 11:17 Temperature 99.7 F H Pulse Rate 132 H 128 H 145 H Pulse Rate [ From Monitor] Respiratory 24 21 Rate Blood Pressure 175/89 169/95 169/91 O2 Sat by Pulse 100 100 Oximetry 10/29/16 12:00 Temperature 99.3 F Pulse Rate Pulse Rate [ From Monitor] Respiratory Rate Blood Pressure O2 Sat by Pulse Oximetry Constitutional: no acute distress, other (? delirium / dementia element) Eyes: non-icteric ENT: oropharynx moist Neck: supple, no lymphadenopathy Effort: mildly labored Ascultation: Bilateral: diminished breath sounds, rales (bases) Cardiovascular: regular rate and rhythm, other (tachycardia) Gastrointestinal: normoactive bowel sounds, soft, non-tender, non-distended Integumentary: normal Extremities: no cyanosis, no edema, no ischemia or petechiae, other (cold right foot with digital ischemia) Neurologic: non-focal exam (grossly), unable to assess Psychiatric: other (sedated) CBC and BMP: 11/01/16 06:33 11/01/16 06:33 ABG, PT/INR, D-dimer: ABG POC ABG pH 7.398 (7.35-7.45) 10/26/16 15:28 POC ABG pCO2 33.7 (35-45) L 10/26/16 15:28 POC ABG pO2 99 (80-105) 10/26/16 15:28 POC ABG HCO3 20.8 10/26/16 15:28 POC ABG Total CO2 22 10/26/16 15:28 POC ABG O2 Sat 98 10/26/16 15:28 PT/INR, D-dimer PT 16.4 Sec. (12.2-14.9) H 10/17/16 16:07 INR 1.33 (0.87-1.13) H 10/17/16 16:07 Abnormal lab findings: Abnormal Labs 10/13/16 10/13/16 10/13/16 06:38 06:38 07:23 WBC RBC Hgb Hct MCV RDW Plt Count Lymph % (Auto) Harrison % (Auto) Harrison # Seg Neutrophils % Seg Neuts % (Manual) Lymphocytes % (Manual) Monocytes % (Manual) Seg Neutrophils # Seg Neutrophils # Man Lymphocytes # (Manual) Monocytes # (Manual) Eosinophils # (Manual) Basophils # (Manual) PT INR APTT Heparin Anti-Xa Level POC ABG pH POC ABG pCO2 POC ABG pO2 Sodium Potassium 6.2 H* Chloride Carbon Dioxide 8 L* BUN 85 H Creatinine 2.8 H Glucose 602 H* POC Glucose 495 H Calcium 7.9 L Phosphorus 6.9 H D Magnesium 3.0 H AST C-Reactive Protein Total Protein Albumin Lipase Vitamin B12 TSH Urine WBC (Auto) Urine Chloride Urine Total Protein Crossmatch 10/13/16 10/13/16 10/13/16 08:49 08:55 10:12 WBC RBC Hgb Hct MCV RDW Plt Count Lymph % (Auto) Harrison % (Auto) Harrison # Seg Neutrophils % Seg Neuts % (Manual) Lymphocytes % (Manual) Monocytes % (Manual) Seg Neutrophils # Seg Neutrophils # Man Lymphocytes # (Manual) Monocytes # (Manual) Eosinophils # (Manual) Basophils # (Manual) PT INR APTT Heparin Anti-Xa Level POC ABG pH POC ABG pCO2 POC ABG pO2 Sodium Potassium 5.6 H Chloride Carbon Dioxide 11 L BUN 77 H Creatinine 2.7 H Glucose 457 H POC Glucose > 500 H 424 H Calcium 8.0 L Phosphorus Magnesium AST C-Reactive Protein Total Protein Albumin Lipase Vitamin B12 TSH Urine WBC (Auto) Urine Chloride Urine Total Protein Crossmatch 10/13/16 10/13/16 10/13/16 10:44 11:22 12:20 WBC RBC Hgb Hct MCV RDW Plt Count Lymph % (Auto) Harrison % (Auto) Harrison # Seg Neutrophils % Seg Neuts % (Manual) Lymphocytes % (Manual) Monocytes % (Manual) Seg Neutrophils # Seg Neutrophils # Man Lymphocytes # (Manual) Monocytes # (Manual) Eosinophils # (Manual) Basophils # (Manual) PT INR APTT Heparin Anti-Xa Level POC ABG pH POC ABG pCO2 POC ABG pO2 Sodium Potassium 5.4 H Chloride Carbon Dioxide 14 L BUN 72 H Creatinine 2.6 H Glucose 383 H POC Glucose 391 H 313 H Calcium 8.2 L Phosphorus Magnesium AST C-Reactive Protein Total Protein Albumin Lipase Vitamin B12 TSH Urine WBC (Auto) Urine Chloride Urine Total Protein Crossmatch 10/13/16 10/13/16 10/13/16 13:32 14:44 15:57 WBC RBC Hgb Hct MCV RDW Plt Count Lymph % (Auto) Harrison % (Auto) Harrison # Seg Neutrophils % Seg Neuts % (Manual) Lymphocytes % (Manual) Monocytes % (Manual) Seg Neutrophils # Seg Neutrophils # Man Lymphocytes # (Manual) Monocytes # (Manual) Eosinophils # (Manual) Basophils # (Manual) PT INR APTT Heparin Anti-Xa Level POC ABG pH POC ABG pCO2 POC ABG pO2 Sodium Potassium Chloride Carbon Dioxide BUN Creatinine Glucose POC Glucose 296 H 210 H 190 H Calcium Phosphorus Magnesium AST C-Reactive Protein Total Protein Albumin Lipase Vitamin B12 TSH Urine WBC (Auto) Urine Chloride Urine Total Protein Crossmatch 10/13/16 10/13/16 10/13/16 16:14 16:14 17:17 WBC RBC Hgb Hct MCV RDW Plt Count Lymph % (Auto) Harrison % (Auto) Harrison # Seg Neutrophils % Seg Neuts % (Manual) Lymphocytes % (Manual) Monocytes % (Manual) Seg Neutrophils # Seg Neutrophils # Man Lymphocytes # (Manual) Monocytes # (Manual) Eosinophils # (Manual) Basophils # (Manual) PT INR APTT Heparin Anti-Xa Level POC ABG pH POC ABG pCO2 POC ABG pO2 Sodium Potassium Chloride Carbon Dioxide 17 L BUN 58 H Creatinine 1.8 H Glucose 172 H POC Glucose 193 H Calcium 7.7 L Phosphorus Magnesium AST C-Reactive Protein 10.50 H Total Protein Albumin Lipase Vitamin B12 TSH Urine WBC (Auto) Urine Chloride Urine Total Protein Crossmatch 10/13/16 10/13/16 10/13/16 17:55 18:32 19:41 WBC RBC Hgb Hct MCV RDW Plt Count Lymph % (Auto) Harrison % (Auto) Harrison # Seg Neutrophils % Seg Neuts % (Manual) Lymphocytes % (Manual) Monocytes % (Manual) Seg Neutrophils # Seg Neutrophils # Man Lymphocytes # (Manual) Monocytes # (Manual) Eosinophils # (Manual) Basophils # (Manual) PT INR APTT Heparin Anti-Xa Level POC ABG pH POC ABG pCO2 30.6 L POC ABG pO2 218 H Sodium Potassium Chloride Carbon Dioxide BUN Creatinine Glucose POC Glucose 192 H 177 H Calcium Phosphorus Magnesium AST C-Reactive Protein Total Protein Albumin Lipase Vitamin B12 TSH Urine WBC (Auto) Urine Chloride Urine Total Protein Crossmatch 10/13/16 10/13/16 10/13/16 20:54 22:07 23:13 WBC RBC Hgb Hct MCV RDW Plt Count Lymph % (Auto) Harrison % (Auto) Harrison # Seg Neutrophils % Seg Neuts % (Manual) Lymphocytes % (Manual) Monocytes % (Manual) Seg Neutrophils # Seg Neutrophils # Man Lymphocytes # (Manual) Monocytes # (Manual) Eosinophils # (Manual) Basophils # (Manual) PT INR APTT Heparin Anti-Xa Level POC ABG pH POC ABG pCO2 POC ABG pO2 Sodium Potassium Chloride Carbon Dioxide BUN Creatinine Glucose POC Glucose 178 H 160 H 168 H Calcium Phosphorus Magnesium AST C-Reactive Protein Total Protein Albumin Lipase Vitamin B12 TSH Urine WBC (Auto) Urine Chloride Urine Total Protein Crossmatch 10/13/16 10/13/16 10/14/16 23:25 Unknown 00:21 WBC RBC Hgb Hct MCV RDW Plt Count Lymph % (Auto) Harrison % (Auto) Harrison # Seg Neutrophils % Seg Neuts % (Manual) Lymphocytes % (Manual) Monocytes % (Manual) Seg Neutrophils # Seg Neutrophils # Man Lymphocytes # (Manual) Monocytes # (Manual) Eosinophils # (Manual) Basophils # (Manual) PT INR APTT Heparin Anti-Xa Level POC ABG pH POC ABG pCO2 POC ABG pO2 Sodium 148 H Potassium Chloride 114.6 H Carbon Dioxide 17 L BUN 56 H Creatinine 1.6 H Glucose 151 H POC Glucose 171 H Calcium 7.8 L Phosphorus Magnesium AST C-Reactive Protein Total Protein Albumin Lipase Vitamin B12 TSH Urine WBC (Auto) Urine Chloride 10.0 L Urine Total Protein < 4 L Crossmatch 10/14/16 10/14/16 10/14/16 01:22 02:29 03:30 WBC RBC Hgb Hct MCV RDW Plt Count Lymph % (Auto) Harrison % (Auto) Harrison # Seg Neutrophils % Seg Neuts % (Manual) Lymphocytes % (Manual) Monocytes % (Manual) Seg Neutrophils # Seg Neutrophils # Man Lymphocytes # (Manual) Monocytes # (Manual) Eosinophils # (Manual) Basophils # (Manual) PT INR APTT Heparin Anti-Xa Level POC ABG pH POC ABG pCO2 POC ABG pO2 Sodium Potassium Chloride Carbon Dioxide BUN Creatinine Glucose POC Glucose 144 H 136 H 143 H Calcium Phosphorus Magnesium AST C-Reactive Protein Total Protein Albumin Lipase Vitamin B12 TSH Urine WBC (Auto) Urine Chloride Urine Total Protein Crossmatch 10/14/16 10/14/16 10/14/16 04:28 05:16 05:44 WBC RBC Hgb Hct MCV RDW Plt Count Lymph % (Auto) Harrison % (Auto) Harrison # Seg Neutrophils % Seg Neuts % (Manual) Lymphocytes % (Manual) Monocytes % (Manual) Seg Neutrophils # Seg Neutrophils # Man Lymphocytes # (Manual) Monocytes # (Manual) Eosinophils # (Manual) Basophils # (Manual) PT INR APTT Heparin Anti-Xa Level POC ABG pH POC ABG pCO2 28.2 L POC ABG pO2 125 H Sodium Potassium Chloride Carbon Dioxide BUN Creatinine Glucose POC Glucose 133 H 160 H Calcium Phosphorus Magnesium AST C-Reactive Protein Total Protein Albumin Lipase Vitamin B12 TSH Urine WBC (Auto) Urine Chloride Urine Total Protein Crossmatch 10/14/16 10/14/16 10/14/16 06:12 06:45 07:03 WBC RBC Hgb Hct MCV RDW Plt Count Lymph % (Auto) Harrison % (Auto) Harrison # Seg Neutrophils % Seg Neuts % (Manual) Lymphocytes % (Manual) Monocytes % (Manual) Seg Neutrophils # Seg Neutrophils # Man Lymphocytes # (Manual) Monocytes # (Manual) Eosinophils # (Manual) Basophils # (Manual) PT INR APTT Heparin Anti-Xa Level POC ABG pH POC ABG pCO2 POC ABG pO2 Sodium 149 H Potassium Chloride 115.4 H Carbon Dioxide 17 L BUN 45 H Creatinine 1.5 H Glucose 139 H POC Glucose 149 H Calcium 7.4 L Phosphorus 1.0 L D Magnesium AST C-Reactive Protein Total Protein Albumin Lipase Vitamin B12 TSH Urine WBC (Auto) Urine Chloride Urine Total Protein Crossmatch 10/14/16 10/14/16 10/14/16 07:03 08:02 09:16 WBC RBC Hgb Hct MCV RDW Plt Count Lymph % (Auto) Harrison % (Auto) Harrison # Seg Neutrophils % Seg Neuts % (Manual) Lymphocytes % (Manual) Monocytes % (Manual) Seg Neutrophils # Seg Neutrophils # Man Lymphocytes # (Manual) Monocytes # (Manual) Eosinophils # (Manual) Basophils # (Manual) PT INR APTT Heparin Anti-Xa Level POC ABG pH POC ABG pCO2 POC ABG pO2 Sodium Potassium Chloride Carbon Dioxide BUN Creatinine Glucose POC Glucose 156 H 158 H Calcium Phosphorus Magnesium AST C-Reactive Protein Total Protein Albumin Lipase 738 H Vitamin B12 TSH Urine WBC (Auto) Urine Chloride Urine Total Protein Crossmatch 10/14/16 10/14/16 10/14/16 10:26 11:03 11:57 WBC RBC Hgb Hct MCV RDW Plt Count Lymph % (Auto) Harrison % (Auto) Harrison # Seg Neutrophils % Seg Neuts % (Manual) Lymphocytes % (Manual) Monocytes % (Manual) Seg Neutrophils # Seg Neutrophils # Man Lymphocytes # (Manual) Monocytes # (Manual) Eosinophils # (Manual) Basophils # (Manual) PT INR APTT Heparin Anti-Xa Level POC ABG pH 7.198 L POC ABG pCO2 47.5 H POC ABG pO2 Sodium Potassium Chloride Carbon Dioxide BUN Creatinine Glucose POC Glucose 174 H 189 H Calcium Phosphorus Magnesium AST C-Reactive Protein Total Protein Albumin Lipase Vitamin B12 TSH Urine WBC (Auto) Urine Chloride Urine Total Protein Crossmatch 10/14/16 10/14/16 10/14/16 12:02 12:02 13:11 WBC 13.4 H RBC 3.60 L Hgb Hct MCV 98 H D RDW 13.1 L Plt Count Lymph % (Auto) Harrison % (Auto) Harrison # Seg Neutrophils % Seg Neuts % (Manual) Lymphocytes % (Manual) Monocytes % (Manual) Seg Neutrophils # Seg Neutrophils # Man Lymphocytes # (Manual) Monocytes # (Manual) Eosinophils # (Manual) Basophils # (Manual) PT INR APTT Heparin Anti-Xa Level POC ABG pH POC ABG pCO2 POC ABG pO2 Sodium Potassium Chloride 110.7 H Carbon Dioxide 19 L BUN 38 H Creatinine 1.4 H Glucose 182 H POC Glucose 173 H Calcium 7.5 L Phosphorus Magnesium AST C-Reactive Protein Total Protein Albumin Lipase Vitamin B12 TSH Urine WBC (Auto) Urine Chloride Urine Total Protein Crossmatch 10/14/16 10/14/16 10/14/16 14:24 15:31 16:36 WBC RBC Hgb Hct MCV RDW Plt Count Lymph % (Auto) Harrison % (Auto) Harrison # Seg Neutrophils % Seg Neuts % (Manual) Lymphocytes % (Manual) Monocytes % (Manual) Seg Neutrophils # Seg Neutrophils # Man Lymphocytes # (Manual) Monocytes # (Manual) Eosinophils # (Manual) Basophils # (Manual) PT INR APTT Heparin Anti-Xa Level POC ABG pH POC ABG pCO2 POC ABG pO2 Sodium Potassium Chloride Carbon Dioxide BUN Creatinine Glucose POC Glucose 123 H 124 H 156 H Calcium Phosphorus Magnesium AST C-Reactive Protein Total Protein Albumin Lipase Vitamin B12 TSH Urine WBC (Auto) Urine Chloride Urine Total Protein Crossmatch 10/14/16 10/14/16 10/14/16 17:43 19:00 20:08 WBC RBC Hgb Hct MCV RDW Plt Count Lymph % (Auto) Harrison % (Auto) Harrison # Seg Neutrophils % Seg Neuts % (Manual) Lymphocytes % (Manual) Monocytes % (Manual) Seg Neutrophils # Seg Neutrophils # Man Lymphocytes # (Manual) Monocytes # (Manual) Eosinophils # (Manual) Basophils # (Manual) PT INR APTT Heparin Anti-Xa Level POC ABG pH POC ABG pCO2 POC ABG pO2 Sodium Potassium Chloride Carbon Dioxide BUN Creatinine Glucose POC Glucose 154 H 123 H 138 H Calcium Phosphorus Magnesium AST C-Reactive Protein Total Protein Albumin Lipase Vitamin B12 TSH Urine WBC (Auto) Urine Chloride Urine Total Protein Crossmatch 10/14/16 10/14/16 10/14/16 21:17 22:25 23:37 WBC RBC Hgb Hct MCV RDW Plt Count Lymph % (Auto) Harrison % (Auto) Harrison # Seg Neutrophils % Seg Neuts % (Manual) Lymphocytes % (Manual) Monocytes % (Manual) Seg Neutrophils # Seg Neutrophils # Man Lymphocytes # (Manual) Monocytes # (Manual) Eosinophils # (Manual) Basophils # (Manual) PT INR APTT Heparin Anti-Xa Level POC ABG pH POC ABG pCO2 POC ABG pO2 Sodium Potassium Chloride Carbon Dioxide BUN Creatinine Glucose POC Glucose 148 H 132 H 137 H Calcium Phosphorus Magnesium AST C-Reactive Protein Total Protein Albumin Lipase Vitamin B12 TSH Urine WBC (Auto) Urine Chloride Urine Total Protein Crossmatch 10/15/16 10/15/16 10/15/16 00:49 01:53 03:06 WBC RBC Hgb Hct MCV RDW Plt Count Lymph % (Auto) Harrison % (Auto) Harrison # Seg Neutrophils % Seg Neuts % (Manual) Lymphocytes % (Manual) Monocytes % (Manual) Seg Neutrophils # Seg Neutrophils # Man Lymphocytes # (Manual) Monocytes # (Manual) Eosinophils # (Manual) Basophils # (Manual) PT INR APTT Heparin Anti-Xa Level POC ABG pH POC ABG pCO2 POC ABG pO2 Sodium Potassium Chloride Carbon Dioxide BUN Creatinine Glucose POC Glucose 132 H 134 H 134 H Calcium Phosphorus Magnesium AST C-Reactive Protein Total Protein Albumin Lipase Vitamin B12 TSH Urine WBC (Auto) Urine Chloride Urine Total Protein Crossmatch 10/15/16 10/15/16 10/15/16 04:40 04:46 06:21 WBC RBC Hgb Hct MCV RDW Plt Count Lymph % (Auto) Harrison % (Auto) Harrison # Seg Neutrophils % Seg Neuts % (Manual) Lymphocytes % (Manual) Monocytes % (Manual) Seg Neutrophils # Seg Neutrophils # Man Lymphocytes # (Manual) Monocytes # (Manual) Eosinophils # (Manual) Basophils # (Manual) PT INR APTT Heparin Anti-Xa Level POC ABG pH POC ABG pCO2 30.7 L POC ABG pO2 108 H Sodium Potassium Chloride 109.0 H Carbon Dioxide 17 L BUN 27 H Creatinine Glucose 124 H POC Glucose 160 H Calcium 7.5 L Phosphorus Magnesium AST 79 H C-Reactive Protein Total Protein 5.5 L Albumin 3.0 L Lipase Vitamin B12 TSH Urine WBC (Auto) Urine Chloride Urine Total Protein Crossmatch 10/15/16 10/15/16 10/15/16 07:12 08:01 09:03 WBC RBC Hgb Hct MCV RDW Plt Count Lymph % (Auto) Harrison % (Auto) Harrison # Seg Neutrophils % Seg Neuts % (Manual) Lymphocytes % (Manual) Monocytes % (Manual) Seg Neutrophils # Seg Neutrophils # Man Lymphocytes # (Manual) Monocytes # (Manual) Eosinophils # (Manual) Basophils # (Manual) PT INR APTT Heparin Anti-Xa Level POC ABG pH POC ABG pCO2 POC ABG pO2 Sodium Potassium Chloride Carbon Dioxide BUN Creatinine Glucose POC Glucose 179 H 187 H 165 H Calcium Phosphorus Magnesium AST C-Reactive Protein Total Protein Albumin Lipase Vitamin B12 TSH Urine WBC (Auto) Urine Chloride Urine Total Protein Crossmatch 10/15/16 10/15/16 10/15/16 10:06 10:06 10:07 WBC 12.1 H RBC 3.01 L Hgb 9.7 L Hct 29.6 L MCV 98 H RDW Plt Count 129 L Lymph % (Auto) Harrison % (Auto) Harrison # Seg Neutrophils % Seg Neuts % (Manual) Lymphocytes % (Manual) Monocytes % (Manual) Seg Neutrophils # Seg Neutrophils # Man Lymphocytes # (Manual) Monocytes # (Manual) Eosinophils # (Manual) Basophils # (Manual) PT INR APTT Heparin Anti-Xa Level POC ABG pH POC ABG pCO2 POC ABG pO2 Sodium Potassium 3.2 L D Chloride 109.6 H Carbon Dioxide 18 L BUN 22 H Creatinine Glucose 127 H POC Glucose 147 H Calcium 7.0 L Phosphorus Magnesium AST C-Reactive Protein Total Protein Albumin Lipase Vitamin B12 TSH Urine WBC (Auto) Urine Chloride Urine Total Protein Crossmatch 10/15/16 10/15/16 10/15/16 11:05 11:06 11:57 WBC RBC Hgb Hct MCV RDW Plt Count Lymph % (Auto) Harrison % (Auto) Harrison # Seg Neutrophils % Seg Neuts % (Manual) Lymphocytes % (Manual) Monocytes % (Manual) Seg Neutrophils # Seg Neutrophils # Man Lymphocytes # (Manual) Monocytes # (Manual) Eosinophils # (Manual) Basophils # (Manual) PT INR APTT Heparin Anti-Xa Level POC ABG pH 7.305 L POC ABG pCO2 POC ABG pO2 Sodium Potassium Chloride Carbon Dioxide BUN Creatinine Glucose POC Glucose 145 H Calcium Phosphorus Magnesium AST C-Reactive Protein Total Protein Albumin Lipase Vitamin B12 TSH Urine WBC (Auto) 7.0 H Urine Chloride Urine Total Protein Crossmatch 10/15/16 10/15/16 10/15/16 12:04 13:59 15:24 WBC RBC Hgb Hct MCV RDW Plt Count Lymph % (Auto) Harrison % (Auto) Harrison # Seg Neutrophils % Seg Neuts % (Manual) Lymphocytes % (Manual) Monocytes % (Manual) Seg Neutrophils # Seg Neutrophils # Man Lymphocytes # (Manual) Monocytes # (Manual) Eosinophils # (Manual) Basophils # (Manual) PT INR APTT Heparin Anti-Xa Level POC ABG pH POC ABG pCO2 POC ABG pO2 Sodium Potassium Chloride Carbon Dioxide BUN Creatinine Glucose POC Glucose 123 H 147 H 153 H Calcium Phosphorus Magnesium AST C-Reactive Protein Total Protein Albumin Lipase Vitamin B12 TSH Urine WBC (Auto) Urine Chloride Urine Total Protein Crossmatch 10/15/16 10/15/16 10/15/16 16:30 17:34 18:30 WBC RBC Hgb Hct MCV RDW Plt Count Lymph % (Auto) Harrison % (Auto) Harrison # Seg Neutrophils % Seg Neuts % (Manual) Lymphocytes % (Manual) Monocytes % (Manual) Seg Neutrophils # Seg Neutrophils # Man Lymphocytes # (Manual) Monocytes # (Manual) Eosinophils # (Manual) Basophils # (Manual) PT INR APTT Heparin Anti-Xa Level POC ABG pH POC ABG pCO2 POC ABG pO2 Sodium Potassium Chloride Carbon Dioxide BUN Creatinine Glucose POC Glucose 223 H 236 H 164 H Calcium Phosphorus Magnesium AST C-Reactive Protein Total Protein Albumin Lipase Vitamin B12 TSH Urine WBC (Auto) Urine Chloride Urine Total Protein Crossmatch 10/15/16 10/15/16 10/15/16 19:14 20:31 21:23 WBC RBC Hgb Hct MCV RDW Plt Count Lymph % (Auto) Harrison % (Auto) Harrison # Seg Neutrophils % Seg Neuts % (Manual) Lymphocytes % (Manual) Monocytes % (Manual) Seg Neutrophils # Seg Neutrophils # Man Lymphocytes # (Manual) Monocytes # (Manual) Eosinophils # (Manual) Basophils # (Manual) PT INR APTT Heparin Anti-Xa Level POC ABG pH POC ABG pCO2 POC ABG pO2 Sodium Potassium Chloride Carbon Dioxide BUN Creatinine Glucose POC Glucose 138 H 158 H 158 H Calcium Phosphorus Magnesium AST C-Reactive Protein Total Protein Albumin Lipase Vitamin B12 TSH Urine WBC (Auto) Urine Chloride Urine Total Protein Crossmatch 10/15/16 10/15/16 10/16/16 22:04 22:57 00:11 WBC RBC Hgb Hct MCV RDW Plt Count Lymph % (Auto) Harrison % (Auto) Harrison # Seg Neutrophils % Seg Neuts % (Manual) Lymphocytes % (Manual) Monocytes % (Manual) Seg Neutrophils # Seg Neutrophils # Man Lymphocytes # (Manual) Monocytes # (Manual) Eosinophils # (Manual) Basophils # (Manual) PT INR APTT Heparin Anti-Xa Level POC ABG pH POC ABG pCO2 POC ABG pO2 Sodium Potassium Chloride Carbon Dioxide BUN Creatinine Glucose POC Glucose 168 H 213 H 166 H Calcium Phosphorus Magnesium AST C-Reactive Protein Total Protein Albumin Lipase Vitamin B12 TSH Urine WBC (Auto) Urine Chloride Urine Total Protein Crossmatch 10/16/16 10/16/16 10/16/16 01:16 02:32 03:38 WBC RBC Hgb Hct MCV RDW Plt Count Lymph % (Auto) Harrison % (Auto) Harrison # Seg Neutrophils % Seg Neuts % (Manual) Lymphocytes % (Manual) Monocytes % (Manual) Seg Neutrophils # Seg Neutrophils # Man Lymphocytes # (Manual) Monocytes # (Manual) Eosinophils # (Manual) Basophils # (Manual) PT INR APTT Heparin Anti-Xa Level POC ABG pH POC ABG pCO2 POC ABG pO2 Sodium Potassium Chloride Carbon Dioxide BUN Creatinine Glucose POC Glucose 171 H 164 H 147 H Calcium Phosphorus Magnesium AST C-Reactive Protein Total Protein Albumin Lipase Vitamin B12 TSH Urine WBC (Auto) Urine Chloride Urine Total Protein Crossmatch 10/16/16 10/16/16 10/16/16 04:14 04:14 04:49 WBC RBC Hgb Hct MCV RDW Plt Count Lymph % (Auto) Harrison % (Auto) Harrison # Seg Neutrophils % Seg Neuts % (Manual) Lymphocytes % (Manual) Monocytes % (Manual) Seg Neutrophils # Seg Neutrophils # Man Lymphocytes # (Manual) Monocytes # (Manual) Eosinophils # (Manual) Basophils # (Manual) PT INR APTT Heparin Anti-Xa Level POC ABG pH POC ABG pCO2 POC ABG pO2 Sodium 147 H Potassium Chloride 110.9 H Carbon Dioxide 19 L BUN Creatinine Glucose 139 H POC Glucose 144 H Calcium 7.3 L Phosphorus 2.3 L Magnesium AST C-Reactive Protein Total Protein Albumin Lipase 143 H Vitamin B12 TSH Urine WBC (Auto) Urine Chloride Urine Total Protein Crossmatch 10/16/16 10/16/16 10/16/16 05:03 05:41 05:58 WBC 16.5 H RBC 3.36 L Hgb Hct MCV 98 H RDW 13.1 L Plt Count Lymph % (Auto) 8.5 L Harrison % (Auto) 7.6 H Harrison # 1.3 H Seg Neutrophils % 83.3 H Seg Neuts % (Manual) Lymphocytes % (Manual) Monocytes % (Manual) Seg Neutrophils # 13.8 H Seg Neutrophils # Man Lymphocytes # (Manual) Monocytes # (Manual) Eosinophils # (Manual) Basophils # (Manual) PT INR APTT Heparin Anti-Xa Level POC ABG pH POC ABG pCO2 30.7 L POC ABG pO2 128 H Sodium Potassium Chloride Carbon Dioxide BUN Creatinine Glucose POC Glucose 131 H Calcium Phosphorus Magnesium AST C-Reactive Protein Total Protein Albumin Lipase Vitamin B12 TSH Urine WBC (Auto) Urine Chloride Urine Total Protein Crossmatch 10/16/16 10/16/16 10/16/16 06:32 09:27 09:35 WBC RBC Hgb Hct MCV RDW Plt Count Lymph % (Auto) Harrison % (Auto) Harrison # Seg Neutrophils % Seg Neuts % (Manual) Lymphocytes % (Manual) Monocytes % (Manual) Seg Neutrophils # Seg Neutrophils # Man Lymphocytes # (Manual) Monocytes # (Manual) Eosinophils # (Manual) Basophils # (Manual) PT INR APTT Heparin Anti-Xa Level POC ABG pH POC ABG pCO2 32.8 L POC ABG pO2 137 H Sodium Potassium Chloride Carbon Dioxide BUN Creatinine Glucose POC Glucose 121 H 150 H Calcium Phosphorus Magnesium AST C-Reactive Protein Total Protein Albumin Lipase Vitamin B12 TSH Urine WBC (Auto) Urine Chloride Urine Total Protein Crossmatch 10/16/16 10/16/16 10/16/16 10:47 13:27 14:24 WBC RBC Hgb Hct MCV RDW Plt Count Lymph % (Auto) Harrison % (Auto) Harrison # Seg Neutrophils % Seg Neuts % (Manual) Lymphocytes % (Manual) Monocytes % (Manual) Seg Neutrophils # Seg Neutrophils # Man Lymphocytes # (Manual) Monocytes # (Manual) Eosinophils # (Manual) Basophils # (Manual) PT INR APTT Heparin Anti-Xa Level POC ABG pH POC ABG pCO2 POC ABG pO2 Sodium Potassium Chloride Carbon Dioxide BUN Creatinine Glucose POC Glucose 184 H 171 H 174 H Calcium Phosphorus Magnesium AST C-Reactive Protein Total Protein Albumin Lipase Vitamin B12 TSH Urine WBC (Auto) Urine Chloride Urine Total Protein Crossmatch 10/16/16 10/16/16 10/16/16 15:48 16:26 18:17 WBC RBC Hgb Hct MCV RDW Plt Count Lymph % (Auto) Harrison % (Auto) Harrison # Seg Neutrophils % Seg Neuts % (Manual) Lymphocytes % (Manual) Monocytes % (Manual) Seg Neutrophils # Seg Neutrophils # Man Lymphocytes # (Manual) Monocytes # (Manual) Eosinophils # (Manual) Basophils # (Manual) PT INR APTT Heparin Anti-Xa Level POC ABG pH POC ABG pCO2 POC ABG pO2 Sodium Potassium Chloride Carbon Dioxide BUN Creatinine Glucose POC Glucose 205 H 204 H 234 H Calcium Phosphorus Magnesium AST C-Reactive Protein Total Protein Albumin Lipase Vitamin B12 TSH Urine WBC (Auto) Urine Chloride Urine Total Protein Crossmatch 10/16/16 10/16/16 10/16/16 19:40 20:33 21:36 WBC RBC Hgb Hct MCV RDW Plt Count Lymph % (Auto) Harrison % (Auto) Harrison # Seg Neutrophils % Seg Neuts % (Manual) Lymphocytes % (Manual) Monocytes % (Manual) Seg Neutrophils # Seg Neutrophils # Man Lymphocytes # (Manual) Monocytes # (Manual) Eosinophils # (Manual) Basophils # (Manual) PT INR APTT Heparin Anti-Xa Level POC ABG pH POC ABG pCO2 POC ABG pO2 Sodium Potassium Chloride Carbon Dioxide BUN Creatinine Glucose POC Glucose 167 H 153 H 158 H Calcium Phosphorus Magnesium AST C-Reactive Protein Total Protein Albumin Lipase Vitamin B12 TSH Urine WBC (Auto) Urine Chloride Urine Total Protein Crossmatch 10/16/16 10/16/16 10/17/16 22:54 23:48 00:47 WBC RBC Hgb Hct MCV RDW Plt Count Lymph % (Auto) Harrison % (Auto) Harrison # Seg Neutrophils % Seg Neuts % (Manual) Lymphocytes % (Manual) Monocytes % (Manual) Seg Neutrophils # Seg Neutrophils # Man Lymphocytes # (Manual) Monocytes # (Manual) Eosinophils # (Manual) Basophils # (Manual) PT INR APTT Heparin Anti-Xa Level POC ABG pH POC ABG pCO2 POC ABG pO2 Sodium Potassium Chloride Carbon Dioxide BUN Creatinine Glucose POC Glucose 180 H 207 H 196 H Calcium Phosphorus Magnesium AST C-Reactive Protein Total Protein Albumin Lipase Vitamin B12 TSH Urine WBC (Auto) Urine Chloride Urine Total Protein Crossmatch 10/17/16 10/17/16 10/17/16 01:57 02:49 03:50 WBC RBC Hgb Hct MCV RDW Plt Count Lymph % (Auto) Harrison % (Auto) Harrison # Seg Neutrophils % Seg Neuts % (Manual) Lymphocytes % (Manual) Monocytes % (Manual) Seg Neutrophils # Seg Neutrophils # Man Lymphocytes # (Manual) Monocytes # (Manual) Eosinophils # (Manual) Basophils # (Manual) PT INR APTT Heparin Anti-Xa Level POC ABG pH POC ABG pCO2 POC ABG pO2 Sodium Potassium Chloride Carbon Dioxide BUN Creatinine Glucose POC Glucose 180 H 151 H 106 H Calcium Phosphorus Magnesium AST C-Reactive Protein Total Protein Albumin Lipase Vitamin B12 TSH Urine WBC (Auto) Urine Chloride Urine Total Protein Crossmatch 10/17/16 10/17/16 10/17/16 04:59 06:03 06:35 WBC RBC Hgb Hct MCV RDW Plt Count Lymph % (Auto) Harrison % (Auto) Harrison # Seg Neutrophils % Seg Neuts % (Manual) Lymphocytes % (Manual) Monocytes % (Manual) Seg Neutrophils # Seg Neutrophils # Man Lymphocytes # (Manual) Monocytes # (Manual) Eosinophils # (Manual) Basophils # (Manual) PT INR APTT Heparin Anti-Xa Level POC ABG pH 7.453 H POC ABG pCO2 30.1 L POC ABG pO2 111 H Sodium Potassium Chloride Carbon Dioxide BUN Creatinine Glucose POC Glucose 145 H 157 H Calcium Phosphorus Magnesium AST C-Reactive Protein Total Protein Albumin Lipase Vitamin B12 TSH Urine WBC (Auto) Urine Chloride Urine Total Protein Crossmatch 10/17/16 10/17/16 10/17/16 07:08 07:11 08:01 WBC RBC Hgb Hct MCV RDW Plt Count Lymph % (Auto) Harrison % (Auto) Harrison # Seg Neutrophils % Seg Neuts % (Manual) Lymphocytes % (Manual) Monocytes % (Manual) Seg Neutrophils # Seg Neutrophils # Man Lymphocytes # (Manual) Monocytes # (Manual) Eosinophils # (Manual) Basophils # (Manual) PT INR APTT Heparin Anti-Xa Level POC ABG pH POC ABG pCO2 POC ABG pO2 Sodium 147 H Potassium Chloride 113.8 H Carbon Dioxide 19 L BUN Creatinine Glucose 136 H POC Glucose 136 H 152 H Calcium 7.7 L Phosphorus Magnesium AST C-Reactive Protein Total Protein Albumin Lipase Vitamin B12 TSH Urine WBC (Auto) Urine Chloride Urine Total Protein Crossmatch 10/17/16 10/17/16 10/17/16 08:23 09:17 09:53 WBC 18.1 H RBC 3.01 L Hgb 9.7 L Hct 29.4 L MCV 98 H RDW Plt Count 116 L Lymph % (Auto) Harrison % (Auto) Harrison # Seg Neutrophils % Seg Neuts % (Manual) 77.0 H Lymphocytes % (Manual) 4.0 L Monocytes % (Manual) 12.0 H Seg Neutrophils # Seg Neutrophils # Man 13.9 H Lymphocytes # (Manual) 0.7 L Monocytes # (Manual) 2.2 H Eosinophils # (Manual) Basophils # (Manual) PT INR APTT Heparin Anti-Xa Level POC ABG pH POC ABG pCO2 POC ABG pO2 Sodium Potassium Chloride Carbon Dioxide BUN Creatinine Glucose POC Glucose 148 H 137 H Calcium Phosphorus Magnesium AST C-Reactive Protein Total Protein Albumin Lipase Vitamin B12 TSH Urine WBC (Auto) Urine Chloride Urine Total Protein Crossmatch 10/17/16 10/17/16 10/17/16 11:43 16:07 17:42 WBC RBC Hgb Hct MCV RDW Plt Count Lymph % (Auto) Harrison % (Auto) Harrison # Seg Neutrophils % Seg Neuts % (Manual) Lymphocytes % (Manual) Monocytes % (Manual) Seg Neutrophils # Seg Neutrophils # Man Lymphocytes # (Manual) Monocytes # (Manual) Eosinophils # (Manual) Basophils # (Manual) PT 16.4 H INR 1.33 H APTT 38.8 H Heparin Anti-Xa Level POC ABG pH POC ABG pCO2 POC ABG pO2 Sodium Potassium Chloride Carbon Dioxide BUN Creatinine Glucose POC Glucose 179 H 153 H Calcium Phosphorus Magnesium AST C-Reactive Protein Total Protein Albumin Lipase Vitamin B12 TSH Urine WBC (Auto) Urine Chloride Urine Total Protein Crossmatch 10/17/16 10/18/16 10/18/16 22:54 04:37 05:39 WBC RBC Hgb Hct MCV RDW Plt Count Lymph % (Auto) Harrison % (Auto) Harrison # Seg Neutrophils % Seg Neuts % (Manual) Lymphocytes % (Manual) Monocytes % (Manual) Seg Neutrophils # Seg Neutrophils # Man Lymphocytes # (Manual) Monocytes # (Manual) Eosinophils # (Manual) Basophils # (Manual) PT INR APTT Heparin Anti-Xa Level 0.27 L POC ABG pH 7.454 H POC ABG pCO2 30.8 L POC ABG pO2 115 H Sodium Potassium Chloride Carbon Dioxide BUN Creatinine Glucose POC Glucose 69 L Calcium Phosphorus Magnesium AST C-Reactive Protein Total Protein Albumin Lipase Vitamin B12 TSH Urine WBC (Auto) Urine Chloride Urine Total Protein Crossmatch 10/18/16 10/18/16 10/18/16 06:46 06:46 06:46 WBC 20.5 H RBC 2.62 L Hgb 8.4 L Hct 26.0 L MCV 100 H RDW Plt Count Lymph % (Auto) Harrison % (Auto) Harrison # Seg Neutrophils % Seg Neuts % (Manual) 75.0 H Lymphocytes % (Manual) 9.0 L Monocytes % (Manual) 14.0 H Seg Neutrophils # Seg Neutrophils # Man 15.4 H Lymphocytes # (Manual) Monocytes # (Manual) 2.9 H Eosinophils # (Manual) Basophils # (Manual) PT INR APTT Heparin Anti-Xa Level POC ABG pH POC ABG pCO2 POC ABG pO2 Sodium Potassium Chloride 110.6 H Carbon Dioxide BUN Creatinine 1.3 H Glucose 153 H POC Glucose Calcium 8.0 L Phosphorus Magnesium 1.6 L AST C-Reactive Protein Total Protein Albumin Lipase Vitamin B12 TSH Urine WBC (Auto) Urine Chloride Urine Total Protein Crossmatch 10/18/16 10/18/16 10/18/16 07:30 11:37 17:51 WBC RBC Hgb Hct MCV RDW Plt Count Lymph % (Auto) Harrison % (Auto) Harrison # Seg Neutrophils % Seg Neuts % (Manual) Lymphocytes % (Manual) Monocytes % (Manual) Seg Neutrophils # Seg Neutrophils # Man Lymphocytes # (Manual) Monocytes # (Manual) Eosinophils # (Manual) Basophils # (Manual) PT INR APTT Heparin Anti-Xa Level POC ABG pH POC ABG pCO2 POC ABG pO2 Sodium Potassium Chloride Carbon Dioxide BUN Creatinine Glucose POC Glucose 162 H 156 H 164 H Calcium Phosphorus Magnesium AST C-Reactive Protein Total Protein Albumin Lipase Vitamin B12 TSH Urine WBC (Auto) Urine Chloride Urine Total Protein Crossmatch 10/18/16 10/19/16 10/19/16 23:44 03:59 05:13 WBC 18.2 H RBC 2.76 L Hgb 9.0 L Hct 27.7 L MCV 100 H RDW Plt Count Lymph % (Auto) Harrison % (Auto) Harrison # Seg Neutrophils % Seg Neuts % (Manual) 76.0 H Lymphocytes % (Manual) 10.0 L Monocytes % (Manual) Seg Neutrophils # Seg Neutrophils # Man 13.8 H Lymphocytes # (Manual) Monocytes # (Manual) Eosinophils # (Manual) Basophils # (Manual) PT INR APTT Heparin Anti-Xa Level POC ABG pH POC ABG pCO2 32.2 L POC ABG pO2 128 H Sodium Potassium Chloride Carbon Dioxide BUN Creatinine Glucose POC Glucose 278 H Calcium Phosphorus Magnesium AST C-Reactive Protein Total Protein Albumin Lipase Vitamin B12 TSH Urine WBC (Auto) Urine Chloride Urine Total Protein Crossmatch 10/19/16 10/19/16 10/19/16 06:01 06:30 12:20 WBC RBC Hgb Hct MCV RDW Plt Count Lymph % (Auto) Harrison % (Auto) Harrison # Seg Neutrophils % Seg Neuts % (Manual) Lymphocytes % (Manual) Monocytes % (Manual) Seg Neutrophils # Seg Neutrophils # Man Lymphocytes # (Manual) Monocytes # (Manual) Eosinophils # (Manual) Basophils # (Manual) PT INR APTT Heparin Anti-Xa Level POC ABG pH POC ABG pCO2 POC ABG pO2 Sodium Potassium Chloride Carbon Dioxide 18 L BUN Creatinine 1.3 H Glucose 262 H POC Glucose 261 H 349 H Calcium 7.7 L Phosphorus 4.8 H D Magnesium AST C-Reactive Protein Total Protein Albumin Lipase Vitamin B12 TSH Urine WBC (Auto) Urine Chloride Urine Total Protein Crossmatch 10/19/16 10/20/16 10/20/16 16:48 00:17 05:20 WBC 22.5 H RBC 2.80 L Hgb 8.9 L Hct 28.3 L MCV 101 H RDW Plt Count Lymph % (Auto) Harrison % (Auto) Harrison # Seg Neutrophils % Seg Neuts % (Manual) Lymphocytes % (Manual) 10.0 L Monocytes % (Manual) Seg Neutrophils # Seg Neutrophils # Man 13.3 H Lymphocytes # (Manual) Monocytes # (Manual) 1.1 H Eosinophils # (Manual) 0.7 H Basophils # (Manual) PT INR APTT Heparin Anti-Xa Level POC ABG pH POC ABG pCO2 POC ABG pO2 Sodium Potassium Chloride Carbon Dioxide BUN Creatinine Glucose POC Glucose 248 H 346 H Calcium Phosphorus Magnesium AST C-Reactive Protein Total Protein Albumin Lipase Vitamin B12 TSH Urine WBC (Auto) Urine Chloride Urine Total Protein Crossmatch 10/20/16 10/20/16 10/20/16 05:20 05:20 06:05 WBC RBC Hgb Hct MCV RDW Plt Count Lymph % (Auto) Harrison % (Auto) Harrison # Seg Neutrophils % Seg Neuts % (Manual) Lymphocytes % (Manual) Monocytes % (Manual) Seg Neutrophils # Seg Neutrophils # Man Lymphocytes # (Manual) Monocytes # (Manual) Eosinophils # (Manual) Basophils # (Manual) PT INR APTT Heparin Anti-Xa Level 0.20 L POC ABG pH POC ABG pCO2 POC ABG pO2 Sodium Potassium Chloride Carbon Dioxide BUN 20 H Creatinine Glucose 374 H POC Glucose 337 H Calcium 8.3 L Phosphorus Magnesium AST C-Reactive Protein Total Protein Albumin Lipase Vitamin B12 TSH Urine WBC (Auto) Urine Chloride Urine Total Protein Crossmatch 10/20/16 10/20/16 10/20/16 11:49 13:59 17:56 WBC RBC Hgb Hct MCV RDW Plt Count Lymph % (Auto) Harrison % (Auto) Harrison # Seg Neutrophils % Seg Neuts % (Manual) Lymphocytes % (Manual) Monocytes % (Manual) Seg Neutrophils # Seg Neutrophils # Man Lymphocytes # (Manual) Monocytes # (Manual) Eosinophils # (Manual) Basophils # (Manual) PT INR APTT Heparin Anti-Xa Level 2.00 H POC ABG pH POC ABG pCO2 POC ABG pO2 Sodium Potassium Chloride Carbon Dioxide BUN Creatinine Glucose POC Glucose 305 H 362 H Calcium Phosphorus Magnesium AST C-Reactive Protein Total Protein Albumin Lipase Vitamin B12 TSH Urine WBC (Auto) Urine Chloride Urine Total Protein Crossmatch 10/20/16 10/21/16 10/21/16 23:52 05:00 05:49 WBC 22.9 H RBC 2.49 L Hgb 7.7 L Hct 25.6 L MCV 103 H RDW Plt Count Lymph % (Auto) Harrison % (Auto) Harrison # Seg Neutrophils % Seg Neuts % (Manual) 94.0 H Lymphocytes % (Manual) 1.0 L Monocytes % (Manual) Seg Neutrophils # Seg Neutrophils # Man 21.5 H Lymphocytes # (Manual) 0.2 L Monocytes # (Manual) 1.1 H Eosinophils # (Manual) Basophils # (Manual) PT INR APTT Heparin Anti-Xa Level POC ABG pH POC ABG pCO2 POC ABG pO2 Sodium Potassium Chloride Carbon Dioxide BUN Creatinine Glucose POC Glucose 252 H 180 H Calcium Phosphorus Magnesium AST C-Reactive Protein Total Protein Albumin Lipase Vitamin B12 TSH Urine WBC (Auto) Urine Chloride Urine Total Protein Crossmatch 10/21/16 10/21/16 10/21/16 11:47 11:49 14:10 WBC RBC Hgb Hct MCV RDW Plt Count Lymph % (Auto) Harrison % (Auto) Harrison # Seg Neutrophils % Seg Neuts % (Manual) Lymphocytes % (Manual) Monocytes % (Manual) Seg Neutrophils # Seg Neutrophils # Man Lymphocytes # (Manual) Monocytes # (Manual) Eosinophils # (Manual) Basophils # (Manual) PT INR APTT Heparin Anti-Xa Level POC ABG pH POC ABG pCO2 POC ABG pO2 Sodium Potassium Chloride Carbon Dioxide BUN Creatinine Glucose POC Glucose 50 L 56 L 140 H Calcium Phosphorus Magnesium AST C-Reactive Protein Total Protein Albumin Lipase Vitamin B12 TSH Urine WBC (Auto) Urine Chloride Urine Total Protein Crossmatch 10/21/16 10/21/16 10/22/16 18:24 Unknown 00:07 WBC RBC Hgb Hct MCV RDW Plt Count Lymph % (Auto) Harrison % (Auto) Harrison # Seg Neutrophils % Seg Neuts % (Manual) Lymphocytes % (Manual) Monocytes % (Manual) Seg Neutrophils # Seg Neutrophils # Man Lymphocytes # (Manual) Monocytes # (Manual) Eosinophils # (Manual) Basophils # (Manual) PT INR APTT Heparin Anti-Xa Level POC ABG pH POC ABG pCO2 POC ABG pO2 Sodium 150 H Potassium 3.1 L Chloride 112.4 H Carbon Dioxide BUN 25 H Creatinine 1.4 H Glucose POC Glucose 175 H 218 H Calcium 8.0 L Phosphorus Magnesium AST C-Reactive Protein Total Protein Albumin Lipase Vitamin B12 TSH Urine WBC (Auto) Urine Chloride Urine Total Protein Crossmatch 10/22/16 10/22/16 10/22/16 04:20 04:20 10:25 WBC 20.8 H RBC 2.37 L Hgb 7.5 L Hct 23.9 L MCV 101 H RDW Plt Count Lymph % (Auto) Harrison % (Auto) Harrison # Seg Neutrophils % Seg Neuts % (Manual) 89.0 H Lymphocytes % (Manual) 7.0 L Monocytes % (Manual) Seg Neutrophils # Seg Neutrophils # Man 18.5 H Lymphocytes # (Manual) Monocytes # (Manual) Eosinophils # (Manual) Basophils # (Manual) 0.2 H PT INR APTT Heparin Anti-Xa Level POC ABG pH POC ABG pCO2 POC ABG pO2 Sodium 148 H Potassium 2.9 L* Chloride 109.4 H Carbon Dioxide BUN 26 H Creatinine Glucose 140 H POC Glucose Calcium 7.5 L Phosphorus Magnesium AST C-Reactive Protein Total Protein Albumin Lipase Vitamin B12 976.8 H TSH Urine WBC (Auto) Urine Chloride Urine Total Protein Crossmatch 10/22/16 10/22/16 10/22/16 10:25 14:50 18:16 WBC RBC Hgb Hct MCV RDW Plt Count Lymph % (Auto) Harrison % (Auto) Harrison # Seg Neutrophils % Seg Neuts % (Manual) Lymphocytes % (Manual) Monocytes % (Manual) Seg Neutrophils # Seg Neutrophils # Man Lymphocytes # (Manual) Monocytes # (Manual) Eosinophils # (Manual) Basophils # (Manual) PT INR APTT Heparin Anti-Xa Level POC ABG pH POC ABG pCO2 POC ABG pO2 Sodium Potassium Chloride Carbon Dioxide BUN Creatinine Glucose POC Glucose 193 H Calcium Phosphorus Magnesium AST C-Reactive Protein Total Protein Albumin Lipase Vitamin B12 TSH 0.143 L 0.162 L Urine WBC (Auto) Urine Chloride Urine Total Protein Crossmatch 10/22/16 10/22/16 10/22/16 20:00 20:00 20:00 WBC 24.1 H RBC 2.58 L Hgb 8.2 L Hct 26.4 L MCV 102 H RDW Plt Count Lymph % (Auto) Harrison % (Auto) Harrison # Seg Neutrophils % Seg Neuts % (Manual) 74.0 H Lymphocytes % (Manual) 7.0 L Monocytes % (Manual) Seg Neutrophils # Seg Neutrophils # Man 17.8 H Lymphocytes # (Manual) Monocytes # (Manual) Eosinophils # (Manual) Basophils # (Manual) PT INR APTT Heparin Anti-Xa Level 1.92 H POC ABG pH POC ABG pCO2 POC ABG pO2 Sodium Potassium Chloride Carbon Dioxide BUN Creatinine Glucose POC Glucose Calcium Phosphorus Magnesium AST C-Reactive Protein Total Protein Albumin Lipase Vitamin B12 TSH Urine WBC (Auto) Urine Chloride Urine Total Protein Crossmatch See Detail 10/23/16 10/23/16 10/23/16 00:21 06:09 12:07 WBC RBC Hgb Hct MCV RDW Plt Count Lymph % (Auto) Harrison % (Auto) Harrison # Seg Neutrophils % Seg Neuts % (Manual) Lymphocytes % (Manual) Monocytes % (Manual) Seg Neutrophils # Seg Neutrophils # Man Lymphocytes # (Manual) Monocytes # (Manual) Eosinophils # (Manual) Basophils # (Manual) PT INR APTT Heparin Anti-Xa Level POC ABG pH POC ABG pCO2 POC ABG pO2 Sodium Potassium Chloride Carbon Dioxide BUN Creatinine Glucose POC Glucose 283 H 241 H 340 H Calcium Phosphorus Magnesium AST C-Reactive Protein Total Protein Albumin Lipase Vitamin B12 TSH Urine WBC (Auto) Urine Chloride Urine Total Protein Crossmatch 10/23/16 10/23/16 10/23/16 14:01 16:00 17:59 WBC RBC Hgb Hct MCV RDW Plt Count Lymph % (Auto) Harrison % (Auto) Harrison # Seg Neutrophils % Seg Neuts % (Manual) Lymphocytes % (Manual) Monocytes % (Manual) Seg Neutrophils # Seg Neutrophils # Man Lymphocytes # (Manual) Monocytes # (Manual) Eosinophils # (Manual) Basophils # (Manual) PT INR APTT Heparin Anti-Xa Level 0.19 L POC ABG pH POC ABG pCO2 32.4 L POC ABG pO2 Sodium Potassium Chloride Carbon Dioxide BUN Creatinine Glucose POC Glucose 245 H Calcium Phosphorus Magnesium AST C-Reactive Protein Total Protein Albumin Lipase Vitamin B12 TSH Urine WBC (Auto) Urine Chloride Urine Total Protein Crossmatch 10/23/16 10/23/16 10/23/16 22:55 Unknown Unknown WBC 22.6 H RBC 3.26 L Hgb Hct MCV RDW 17.1 H Plt Count Lymph % (Auto) Harrison % (Auto) Harrison # Seg Neutrophils % Seg Neuts % (Manual) Lymphocytes % (Manual) 11.0 L Monocytes % (Manual) Seg Neutrophils # Seg Neutrophils # Man 14.0 H Lymphocytes # (Manual) Monocytes # (Manual) Eosinophils # (Manual) Basophils # (Manual) PT INR APTT Heparin Anti-Xa Level 0.17 L 0.15 L POC ABG pH POC ABG pCO2 POC ABG pO2 Sodium Potassium Chloride Carbon Dioxide BUN Creatinine Glucose POC Glucose Calcium Phosphorus Magnesium AST C-Reactive Protein Total Protein Albumin Lipase Vitamin B12 TSH Urine WBC (Auto) Urine Chloride Urine Total Protein Crossmatch 10/23/16 10/24/16 10/24/16 Unknown 00:05 05:30 WBC RBC Hgb Hct MCV RDW Plt Count Lymph % (Auto) Harrison % (Auto) Harrison # Seg Neutrophils % Seg Neuts % (Manual) Lymphocytes % (Manual) Monocytes % (Manual) Seg Neutrophils # Seg Neutrophils # Man Lymphocytes # (Manual) Monocytes # (Manual) Eosinophils # (Manual) Basophils # (Manual) PT INR APTT Heparin Anti-Xa Level 0.13 L POC ABG pH POC ABG pCO2 POC ABG pO2 Sodium Potassium Chloride 111.2 H Carbon Dioxide 20 L BUN 25 H Creatinine Glucose 227 H POC Glucose 118 H Calcium 7.1 L Phosphorus Magnesium AST C-Reactive Protein Total Protein Albumin Lipase Vitamin B12 TSH Urine WBC (Auto) Urine Chloride Urine Total Protein Crossmatch 10/24/16 10/24/16 10/24/16 11:00 11:00 12:06 WBC 17.6 H RBC 2.92 L Hgb 9.2 L Hct 28.3 L MCV RDW 16.9 H Plt Count Lymph % (Auto) Harrison % (Auto) Harrison # Seg Neutrophils % Seg Neuts % (Manual) Lymphocytes % (Manual) Monocytes % (Manual) Seg Neutrophils # Seg Neutrophils # Man Lymphocytes # (Manual) Monocytes # (Manual) Eosinophils # (Manual) Basophils # (Manual) PT INR APTT Heparin Anti-Xa Level 0.27 L POC ABG pH POC ABG pCO2 POC ABG pO2 Sodium Potassium Chloride Carbon Dioxide BUN Creatinine Glucose POC Glucose 166 H Calcium Phosphorus Magnesium AST C-Reactive Protein Total Protein Albumin Lipase Vitamin B12 TSH Urine WBC (Auto) Urine Chloride Urine Total Protein Crossmatch 10/24/16 10/25/16 10/25/16 12:27 00:49 03:30 WBC RBC Hgb 8.8 L Hct 28.1 L MCV RDW Plt Count Lymph % (Auto) Harrison % (Auto) Harrison # Seg Neutrophils % Seg Neuts % (Manual) Lymphocytes % (Manual) Monocytes % (Manual) Seg Neutrophils # Seg Neutrophils # Man Lymphocytes # (Manual) Monocytes # (Manual) Eosinophils # (Manual) Basophils # (Manual) PT INR APTT Heparin Anti-Xa Level POC ABG pH POC ABG pCO2 33.9 L POC ABG pO2 Sodium Potassium Chloride Carbon Dioxide BUN Creatinine Glucose POC Glucose 121 H Calcium Phosphorus Magnesium AST C-Reactive Protein Total Protein Albumin Lipase Vitamin B12 TSH Urine WBC (Auto) Urine Chloride Urine Total Protein Crossmatch 10/25/16 10/25/16 10/25/16 09:49 12:10 19:25 WBC 21.1 H RBC 3.02 L Hgb 9.3 L Hct 28.9 L MCV RDW 16.3 H Plt Count Lymph % (Auto) Harrison % (Auto) Harrison # Seg Neutrophils % Seg Neuts % (Manual) 81.0 H Lymphocytes % (Manual) 9.0 L Monocytes % (Manual) Seg Neutrophils # Seg Neutrophils # Man 17.1 H Lymphocytes # (Manual) Monocytes # (Manual) Eosinophils # (Manual) Basophils # (Manual) PT INR APTT Heparin Anti-Xa Level POC ABG pH POC ABG pCO2 POC ABG pO2 Sodium Potassium Chloride Carbon Dioxide BUN Creatinine Glucose POC Glucose 158 H 151 H Calcium Phosphorus Magnesium AST C-Reactive Protein Total Protein Albumin Lipase Vitamin B12 TSH Urine WBC (Auto) Urine Chloride Urine Total Protein Crossmatch 10/26/16 10/26/16 10/26/16 00:20 01:09 05:02 WBC 22.2 H RBC 2.89 L Hgb 8.7 L Hct 27.8 L MCV RDW 16.4 H Plt Count Lymph % (Auto) Harrison % (Auto) Harrison # Seg Neutrophils % Seg Neuts % (Manual) Lymphocytes % (Manual) Monocytes % (Manual) Seg Neutrophils # Seg Neutrophils # Man Lymphocytes # (Manual) Monocytes # (Manual) Eosinophils # (Manual) Basophils # (Manual) PT INR APTT Heparin Anti-Xa Level POC ABG pH POC ABG pCO2 POC ABG pO2 Sodium Potassium Chloride Carbon Dioxide BUN Creatinine Glucose POC Glucose 44 L 112 H Calcium Phosphorus Magnesium AST C-Reactive Protein Total Protein Albumin Lipase Vitamin B12 TSH Urine WBC (Auto) Urine Chloride Urine Total Protein Crossmatch 10/26/16 10/26/16 10/26/16 05:02 12:11 12:14 WBC RBC Hgb Hct MCV RDW Plt Count Lymph % (Auto) Harrison % (Auto) Harrison # Seg Neutrophils % Seg Neuts % (Manual) Lymphocytes % (Manual) Monocytes % (Manual) Seg Neutrophils # Seg Neutrophils # Man Lymphocytes # (Manual) Monocytes # (Manual) Eosinophils # (Manual) Basophils # (Manual) PT INR APTT Heparin Anti-Xa Level POC ABG pH POC ABG pCO2 32.0 L POC ABG pO2 33 L Sodium Potassium 3.2 L D Chloride Carbon Dioxide 20 L BUN 24 H Creatinine Glucose 104 H POC Glucose 194 H Calcium 7.7 L Phosphorus Magnesium AST C-Reactive Protein Total Protein Albumin Lipase Vitamin B12 TSH Urine WBC (Auto) Urine Chloride Urine Total Protein Crossmatch 10/26/16 10/26/16 10/27/16 15:28 17:23 00:04 WBC RBC Hgb Hct MCV RDW Plt Count Lymph % (Auto) Harrison % (Auto) Harrison # Seg Neutrophils % Seg Neuts % (Manual) Lymphocytes % (Manual) Monocytes % (Manual) Seg Neutrophils # Seg Neutrophils # Man Lymphocytes # (Manual) Monocytes # (Manual) Eosinophils # (Manual) Basophils # (Manual) PT INR APTT Heparin Anti-Xa Level POC ABG pH POC ABG pCO2 33.7 L POC ABG pO2 Sodium Potassium Chloride Carbon Dioxide BUN Creatinine Glucose POC Glucose 181 H 230 H Calcium Phosphorus Magnesium AST C-Reactive Protein Total Protein Albumin Lipase Vitamin B12 TSH Urine WBC (Auto) Urine Chloride Urine Total Protein Crossmatch 10/27/16 10/27/16 10/27/16 05:15 05:15 05:38 WBC 25.5 H RBC 3.07 L Hgb 9.4 L Hct 30.1 L MCV 98 H RDW 16.4 H Plt Count 527 H Lymph % (Auto) Harrison % (Auto) Harrison # Seg Neutrophils % Seg Neuts % (Manual) Lymphocytes % (Manual) Monocytes % (Manual) Seg Neutrophils # Seg Neutrophils # Man Lymphocytes # (Manual) Monocytes # (Manual) Eosinophils # (Manual) Basophils # (Manual) PT INR APTT Heparin Anti-Xa Level POC ABG pH POC ABG pCO2 POC ABG pO2 Sodium Potassium Chloride Carbon Dioxide 19 L BUN 23 H Creatinine Glucose 160 H POC Glucose 168 H Calcium 8.0 L Phosphorus Magnesium AST C-Reactive Protein Total Protein Albumin Lipase Vitamin B12 TSH Urine WBC (Auto) Urine Chloride Urine Total Protein Crossmatch 10/27/16 10/27/16 10/27/16 11:59 18:35 23:48 WBC RBC Hgb Hct MCV RDW Plt Count Lymph % (Auto) Harrison % (Auto) Harrison # Seg Neutrophils % Seg Neuts % (Manual) Lymphocytes % (Manual) Monocytes % (Manual) Seg Neutrophils # Seg Neutrophils # Man Lymphocytes # (Manual) Monocytes # (Manual) Eosinophils # (Manual) Basophils # (Manual) PT INR APTT Heparin Anti-Xa Level POC ABG pH POC ABG pCO2 POC ABG pO2 Sodium Potassium Chloride Carbon Dioxide BUN Creatinine Glucose POC Glucose 197 H 318 H 316 H Calcium Phosphorus Magnesium AST C-Reactive Protein Total Protein Albumin Lipase Vitamin B12 TSH Urine WBC (Auto) Urine Chloride Urine Total Protein Crossmatch 10/28/16 10/28/16 10/28/16 03:13 04:10 04:10 WBC 18.8 H RBC 2.64 L Hgb 8.1 L Hct 26.1 L MCV 99 H RDW 16.2 H Plt Count 544 H Lymph % (Auto) Harrison % (Auto) Harrison # Seg Neutrophils % Seg Neuts % (Manual) Lymphocytes % (Manual) Monocytes % (Manual) Seg Neutrophils # Seg Neutrophils # Man Lymphocytes # (Manual) Monocytes # (Manual) Eosinophils # (Manual) Basophils # (Manual) PT INR APTT Heparin Anti-Xa Level POC ABG pH POC ABG pCO2 POC ABG pO2 Sodium Potassium Chloride Carbon Dioxide 21 L BUN 24 H Creatinine Glucose 302 H POC Glucose 304 H Calcium 7.7 L Phosphorus Magnesium AST C-Reactive Protein Total Protein Albumin Lipase Vitamin B12 TSH Urine WBC (Auto) Urine Chloride Urine Total Protein Crossmatch 10/28/16 10/28/16 10/28/16 04:10 12:36 18:27 WBC RBC Hgb Hct MCV RDW Plt Count Lymph % (Auto) Harrison % (Auto) Harrison # Seg Neutrophils % Seg Neuts % (Manual) Lymphocytes % (Manual) Monocytes % (Manual) Seg Neutrophils # Seg Neutrophils # Man Lymphocytes # (Manual) Monocytes # (Manual) Eosinophils # (Manual) Basophils # (Manual) PT INR APTT Heparin Anti-Xa Level 0.20 L POC ABG pH POC ABG pCO2 POC ABG pO2 Sodium Potassium Chloride Carbon Dioxide BUN Creatinine Glucose POC Glucose 205 H 339 H Calcium Phosphorus Magnesium AST C-Reactive Protein Total Protein Albumin Lipase Vitamin B12 TSH Urine WBC (Auto) Urine Chloride Urine Total Protein Crossmatch 10/29/16 10/29/16 10/29/16 01:05 06:19 09:30 WBC 20.3 H RBC 2.80 L Hgb 8.5 L Hct 26.7 L MCV RDW 15.4 H Plt Count 571 H Lymph % (Auto) Harrison % (Auto) Harrison # Seg Neutrophils % Seg Neuts % (Manual) 75.0 H Lymphocytes % (Manual) 4.0 L Monocytes % (Manual) Seg Neutrophils # Seg Neutrophils # Man 15.2 H Lymphocytes # (Manual) 0.8 L Monocytes # (Manual) Eosinophils # (Manual) Basophils # (Manual) PT INR APTT Heparin Anti-Xa Level POC ABG pH POC ABG pCO2 POC ABG pO2 Sodium Potassium Chloride Carbon Dioxide BUN Creatinine Glucose POC Glucose 275 H 179 H Calcium Phosphorus Magnesium AST C-Reactive Protein Total Protein Albumin Lipase Vitamin B12 TSH Urine WBC (Auto) Urine Chloride Urine Total Protein Crossmatch 10/29/16 11:46 WBC RBC Hgb Hct MCV RDW Plt Count Lymph % (Auto) Harrison % (Auto) Harrison # Seg Neutrophils % Seg Neuts % (Manual) Lymphocytes % (Manual) Monocytes % (Manual) Seg Neutrophils # Seg Neutrophils # Man Lymphocytes # (Manual) Monocytes # (Manual) Eosinophils # (Manual) Basophils # (Manual) PT INR APTT Heparin Anti-Xa Level POC ABG pH POC ABG pCO2 POC ABG pO2 Sodium Potassium Chloride Carbon Dioxide BUN Creatinine Glucose POC Glucose 122 H Calcium Phosphorus Magnesium AST C-Reactive Protein Total Protein Albumin Lipase Vitamin B12 TSH Urine WBC (Auto) Urine Chloride Urine Total Protein Crossmatch Allied health notes reviewed: RT
--- NOTE | 2016-10-29 15:27 | Progress Note ---
Assessment and Plan Assessment and plan: 66-year-old woman who presented with lethargy and altered mental status she deteriorated and was intubated and in emergency room, she was managed for DKA and she also developed sepsis due to UTI and right lower extremity ischemia 1. Acute respiratory failure with hypercapnia Continue ventilator, failed weaning trial. will plan for Trach and Peg-this has been discussed with the family by the surgeon. I also discussed with her today was at bedside. Did discuss with the patient's daughter Saurav on and she understands and will like us to proceed with PEG and trach of also discussed with nursing staff to inform the surgeon. 2. Diabetes DKA has now resolved, continue SubQ insulin 3. Sepsis- Leukocytosis ?reactive Suspected due to UTI, urine has only grown Paula, sputum cultures grew group B strep, continue broad-spectrum antibiotics, infectious disease input appreciated 4. 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 Family has been updated. We'll continue to attempt to see if below the knee can be done as salvaged. Vascular consult noted too ill for any surgical intervention, continue heparin drip 5. Hypokalemia replete IV-we'll also give magnesium to help improve this. 6. Toxic metabolic encephalopathy- improved. 7. LUCY- present on admissions. likely vasomotor . resolved 8. Tachycardia- continue BB will add cardizem, if no improvement will add cardiology consultation 9. Anemia-no gross evidence of GI bleed. Patient didn't have any material. Ultrasound of the renal done on October 13 was negative. We'll monitor closely. As patient is also on heparin drip. Given her multiple medical illnesses, her prognosis is quite poor Discussed with knowledge analyst. [facility] EVAL Critical care time 31 minutes History Interval history: Patient seen and examined, unable to wean from vent. No further adverse events. Hospitalist Physical - Physical exam Narrative exam: VITAL SIGNS: Reviewed. GENERAL: The patient appeared well nourished and normally developed. Vital signs as documented. HEAD: No signs of head trauma. EYES: Pupils are equal. Extraocular motions intact. EARS: Hearing grossly intact. MOUTH: ETT NECK: No adenopathy, no JVD. CHEST: Chest with diminshed CARDIAC: Regular rate and rhythm. S1 and S2, without murmurs, gallops, or rubs. VASCULAR: trace Edema. Peripheral pulses not palpable at the right lower ext ABDOMEN: Soft, without detectable tenderness. No sign of distention. No rebound or guarding, and no masses palpated. Bowel Sounds normal. MUSCULOSKELETAL: Moves most joints except the right lower extremity ankle area. Extremities with cyanosis to right lower ext, right large toe. NEUROLOGIC EXAM: follows command. PSYCHIATRIC: unable to assess. SKIN: cold at the right lower ext from the knee down once - Constitutional Vitals: Temp Pulse Resp BP Pulse Ox 99.3 F 111 H 28 H 156/84 100 10/29/16 12:00 10/29/16 15:00 10/29/16 15:00 10/29/16 15:00 10/29/16 15:00 General appearance: Present: no acute distress Results - Labs CBC & Chem 7: 10/29/16 09:30 10/28/16 04:10 Labs: Laboratory Last Values WBC 20.3 K/mm3 (4.5-11.0) H 10/29/16 09:30 RBC 2.80 M/mm3 (3.65-5.03) L 10/29/16 09:30 Hgb 8.5 gm/dl (10.1-14.3) L 10/29/16 09:30 Hct 26.7 % (30.3-42.9) L 10/29/16 09:30 MCV 95 fl (79-97) D 10/29/16 09:30 MCH 30 pg (28-32) 10/29/16 09:30 MCHC 32 % (30-34) 10/29/16 09:30 RDW 15.4 % (13.2-15.2) H 10/29/16 09:30 Plt Count 571 K/mm3 (140-440) H 10/29/16 09:30 Lymph % (Auto) Book Solicitor 10/21/16 05:00 Thayer % (Auto) Book Solicitor 10/21/16 05:00 Eos % (Auto) Book Solicitor 10/21/16 05:00 Baso % (Auto) Book Solicitor 10/21/16 05:00 Lymph # Book Solicitor 10/21/16 05:00 Thayer # Book Solicitor 10/21/16 05:00 Eos # Book Solicitor 10/21/16 05:00 Baso # Book Solicitor 10/21/16 05:00 Add Manual Diff Complete 10/29/16 09:30 Total Counted 100 10/29/16 09:30 Seg Neutrophils % Book Solicitor 10/21/16 05:00 Seg Neuts % (Manual) 75.0 % (40.0-70.0) H 10/29/16 09:30 Band Neutrophils % 14.0 % 10/29/16 09:30 Lymphocytes % (Manual) 4.0 % (13.4-35.0) L 10/29/16 09:30 Reactive Lymphs % (Man) 0 % 10/29/16 09:30 Monocytes % (Manual) 4.0 % (0.0-7.3) 10/29/16 09:30 Eosinophils % (Manual) 0 % (0.0-4.3) 10/29/16 09:30 Basophils % (Manual) 0 % (0.0-1.8) 10/29/16 09:30 Metamyelocytes % 1.0 % 10/29/16 09:30 Myelocytes % 2.0 % 10/29/16 09:30 Promyelocytes % 0 % 10/29/16 09:30 Blast Cells % 0 % 10/29/16 09:30 Nucleated RBC % Not Reportable 10/29/16 09:30 Seg Neutrophils # Book Solicitor 10/21/16 05:00 Seg Neutrophils # Man 15.2 K/mm3 (1.8-7.7) H 10/29/16 09:30 Band Neutrophils # 2.8 K/mm3 10/29/16 09:30 Lymphocytes # (Manual) 0.8 K/mm3 (1.2-5.4) L 10/29/16 09:30 Abs React Lymphs (Man) 0.0 K/mm3 10/29/16 09:30 Monocytes # (Manual) 0.8 K/mm3 (0.0-0.8) 10/29/16 09:30 Eosinophils # (Manual) 0.0 K/mm3 (0.0-0.4) 10/29/16 09:30 Basophils # (Manual) 0.0 K/mm3 (0.0-0.1) 10/29/16 09:30 Metamyelocytes # 0.2 K/mm3 10/29/16 09:30 Myelocytes # 0.4 K/mm3 10/29/16 09:30 Promyelocytes # 0.0 K/mm3 10/29/16 09:30 Blast Cells # 0.0 K/mm3 10/29/16 09:30 Pathologist Review 10/29/16 09:30 WBC Morphology Not Reportable 10/29/16 09:30 Hypersegmented Neuts Not Reportable 10/29/16 09:30 Hyposegmented Neuts Not Reportable 10/29/16 09:30 Hypogranular Neuts Not Reportable 10/29/16 09:30 Hypersegmented Polys TNR 10/17/16 07:08 Smudge Cells Not Reportable 10/29/16 09:30 Toxic Granulation Not Reportable 10/29/16 09:30 Toxic Vacuolation Not Reportable 10/29/16 09:30 Dohle Bodies Not Reportable 10/29/16 09:30 Pelger-Huet Anomaly Not Reportable 10/29/16 09:30 Alka Rods Not Reportable 10/29/16 09:30 Platelet Estimate Appears increased 10/29/16 09:30 Clumped Platelets Not Reportable 10/29/16 09:30 Plt Clumps, EDTA Not Reportable 10/29/16 09:30 Large Platelets Few 10/29/16 09:30 Giant Platelets Few 10/29/16 09:30 Platelet Satelliting Not Reportable 10/29/16 09:30 Plt Morphology Comment Not Reportable 10/29/16 09:30 RBC Morphology Not Reportable 10/29/16 09:30 Dimorphic RBCs Not Reportable 10/29/16 09:30 Polychromasia 1+ 10/29/16 09:30 Hypochromasia Few 10/29/16 09:30 Poikilocytosis Not Reportable 10/29/16 09:30 Basophilic Stippling TNR 10/17/16 07:08 Anisocytosis Not Reportable 10/29/16 09:30 Microcytosis Not Reportable 10/29/16 09:30 Macrocytosis Not Reportable 10/29/16 09:30 Spherocytes Not Reportable 10/29/16 09:30 Pappenheimer Bodies Not Reportable 10/29/16 09:30 Sickle Cells Not Reportable 10/29/16 09:30 Target Cells Not Reportable 10/29/16 09:30 Tear Drop Cells Not Reportable 10/29/16 09:30 Ovalocytes Not Reportable 10/29/16 09:30 Stomatocytes Rare 10/22/16 04:20 Helmet Cells Not Reportable 10/29/16 09:30 Higgins-Polkton Bodies Not Reportable 10/29/16 09:30 Solano Rings Not Reportable 10/29/16 09:30 [place] Cells Not Reportable 10/29/16 09:30 Bite Cells Not Reportable 10/29/16 09:30 Crenated Cell Not Reportable 10/29/16 09:30 Elliptocytes Not Reportable 10/29/16 09:30 Acanthocytes (Spur) Not Reportable 10/29/16 09:30 Rouleaux Not Reportable 10/29/16 09:30 Hemoglobin C Crystals Not Reportable 10/29/16 09:30 Schistocytes Not Reportable 10/29/16 09:30 Malaria parasites Not Reportable 10/29/16 09:30 David Bodies Not Reportable 10/29/16 09:30 Hem Pathologist Commnt Sent to pathology 10/29/16 09:30 PT 16.4 Sec. (12.2-14.9) H 10/17/16 16:07 INR 1.33 (0.87-1.13) H 10/17/16 16:07 APTT 38.8 Sec. (24.2-36.6) H 10/17/16 16:07 Heparin Anti-Xa Level 0.52 U.I./ml (0.3-0.7) 10/28/16 13:50 POC ABG pH 7.398 (7.35-7.45) 10/26/16 15:28 POC ABG pCO2 33.7 (35-45) L 10/26/16 15:28 POC ABG pO2 99 (80-105) 10/26/16 15:28 POC ABG HCO3 20.8 10/26/16 15:28 POC ABG Total CO2 22 10/26/16 15:28 POC ABG O2 Sat 98 10/26/16 15:28 POC ABG Base Excess -4 10/26/16 15:28 VBG pH 7.020 (7.320-7.420) L* 10/13/16 04:22 FiO2 25 % 10/26/16 15:28 Sodium 143 mmol/L (137-145) 10/28/16 04:10 Potassium 4.1 mmol/L (3.6-5.0) 10/28/16 04:10 Chloride 105.2 mmol/L (98-107) 10/28/16 04:10 Carbon Dioxide 21 mmol/L (22-30) L 10/28/16 04:10 Anion Gap 21 mmol/L 10/28/16 04:10 BUN 24 mg/dL (7-17) H 10/28/16 04:10 Creatinine 0.8 mg/dL (0.7-1.2) 10/28/16 04:10 Estimated GFR > 60 ml/min 10/28/16 04:10 BUN/Creatinine Ratio 30.00 % 10/28/16 04:10 Glucose 302 mg/dL (65-100) H 10/28/16 04:10 POC Glucose 122 (70-105) H 10/29/16 11:46 Osmolality 332 Mosm/kg 10/14/16 07:03 Lactic Acid 1.8 mmol/L (0.7-2.0) 10/14/16 07:03 Calcium 7.7 mg/dL (8.4-10.2) L 10/28/16 04:10 Phosphorus 2.7 mg/dL (2.5-4.5) D 10/21/16 Unknown Magnesium 1.8 mg/dL (1.7-2.3) 10/26/16 09:03 Total Bilirubin 0.5 mg/dL (0.1-1.2) 10/15/16 04:40 AST 79 units/L (5-40) H 10/15/16 04:40 ALT 27 units/L (7-56) 10/15/16 04:40 Alkaline Phosphatase 80 units/L (35-129) 10/15/16 04:40 Ammonia 35.0 umol/L (25-60) 10/13/16 05:40 Total Creatine Kinase 107 units/L (30-135) 10/13/16 04:22 CK-MB (CK-2) 3.1 ng/mL (0.0-4.0) 10/13/16 04:22 CK-MB (CK-2) Rel Index 2.8 (0-4) 10/13/16 04:22 Troponin T < 0.010 ng/mL (0.00-0.029) 10/14/16 18:55 C-Reactive Protein 10.50 mg/dL (0.00-1.30) H 10/13/16 16:14 Total Protein 5.5 g/dL (6.3-8.2) L 10/15/16 04:40 Albumin 3.0 g/dL (3.9-5) L 10/15/16 04:40 Albumin/Globulin Ratio 1.2 % 10/15/16 04:40 Amylase 57 units/L (27-131) 10/26/16 20:00 Lipase 58 units/L (13-60) 10/26/16 20:00 Vitamin B12 976.8 pg/mL (211-911) H 10/22/16 10:25 TSH 0.162 mlU/mL (0.270-4.200) L 10/22/16 14:50 Free T4 0.77 ng/dL (0.76-1.46) 10/22/16 14:50 Urine Color Yellow (Yellow) 10/15/16 11:05 Urine Turbidity Cloudy (Clear) 10/15/16 11:05 Urine pH 5.0 (5.0-7.0) 10/15/16 11:05 Ur Specific Prewitt 1.009 (1.003-1.030) 10/15/16 11:05 Urine Protein 30 mg/dl mg/dL (Negative) 10/15/16 11:05 Urine Glucose (UA) 150 mg/dL (Negative) 10/15/16 11:05 Urine Ketones Neg mg/dL (Negative) 10/15/16 11:05 Urine Blood Lg (Negative) 10/15/16 11:05 Urine Nitrite Neg (Negative) 10/15/16 11:05 Urine Bilirubin Neg (Negative) 10/15/16 11:05 Urine Urobilinogen < 2.0 mg/dL (<2.0) 10/15/16 11:05 Ur Leukocyte Esterase Neg (Negative) 10/15/16 11:05 Urine WBC (Auto) 7.0 /HPF (0.0-6.0) H 10/15/16 11:05 Urine RBC (Auto) 7.0 /HPF (0.0-6.0) 10/15/16 11:05 U Epithel Cells (Auto) 1.0 /HPF (0-13.0) 10/15/16 11:05 Urine Mucus Few /HPF 10/15/16 11:05 Urine Yeast (Budding) 2+ /HPF 10/15/16 11:05 Urine Osmolality 487 Mosm/kg 10/13/16 Unknown Urine Creatinine < 4.2 mg/dL (0.1-20.0) 10/13/16 Unknown Protein/Creatinin Ratio 0.00 10/13/16 Unknown Urine Sodium 10 mEq/L 10/13/16 Unknown Urine Potassium 1.00 mEq/L 10/13/16 Unknown Urine Chloride 10.0 mEq/L (110-250) L 10/13/16 Unknown Urine Total Protein < 4 mg/dL (5-11.8) L 10/13/16 Unknown Vancomycin Trough 17.7 ug/mL (5.0-20.0) 10/22/16 10:25 Ketones 107.3 mg/dL (0.2-2.8) H 10/13/16 04:22 Blood Type A POSITIVE 10/22/16 20:00 Antibody Screen Negative 10/22/16 20:00 Crossmatch See Detail 10/22/16 20:00
--- NOTE | 2016-10-29 20:32 | Progress Note ---
Subjective Date of service: 10/29/16 Principal diagnosis: respiratory failure on mechanical ventilatory support, DKA Interval history: AWAKE. Fever IMPROVING. Vital signs - Temp 102 CHEST - GOOD AIR ENTRY CVS - S1S2 ABD - BS_ LABS See lab section. ASSESSMENT 1. Sepsis 2. dka 3. resp failure 4. htn 5. clostridium difficile colitis 6. bilateral pneumonia RECOMMENDATION 1. cbc/bmp in am 2. clindamycin and levaquin Objective - Constitutional Vitals: Vital Signs Temp Pulse Resp BP Pulse Ox 99.7 F H 123 H 16 150/85 100 10/29/16 20:00 10/29/16 18:22 10/29/16 18:00 10/29/16 18:22 10/29/16 18:22 Temperature -Last 24 Hours Temperature 99.7 F Temperature 100.6 F Temperature 99.3 F Temperature 99.7 F Temperature 99.5 F Temperature 99.3 F - Labs CBC & Chem 7: 10/29/16 09:30 10/28/16 04:10 Labs: Abnormal lab results 10/29/16 10/29/16 10/29/16 Range/Units 01:05 06:19 09:30 WBC 20.3 H (4.5-11.0) K/mm3 RBC 2.80 L (3.65-5.03) M/mm3 Hgb 8.5 L (10.1-14.3) gm/dl Hct 26.7 L (30.3-42.9) % RDW 15.4 H (13.2-15.2) % Plt Count 571 H (140-440) K/mm3 Seg Neuts % (Manual) 75.0 H (40.0-70.0) % Lymphocytes % (Manual) 4.0 L (13.4-35.0) % Seg Neutrophils # Man 15.2 H (1.8-7.7) K/mm3 Lymphocytes # (Manual) 0.8 L (1.2-5.4) K/mm3 Heparin Anti-Xa Level (0.3-0.7) U.I./ml POC Glucose 275 H 179 H (70-105) 10/29/16 10/29/16 10/29/16 Range/Units 11:46 15:18 17:55 WBC (4.5-11.0) K/mm3 RBC (3.65-5.03) M/mm3 Hgb (10.1-14.3) gm/dl Hct (30.3-42.9) % RDW (13.2-15.2) % Plt Count (140-440) K/mm3 Seg Neuts % (Manual) (40.0-70.0) % Lymphocytes % (Manual) (13.4-35.0) % Seg Neutrophils # Man (1.8-7.7) K/mm3 Lymphocytes # (Manual) (1.2-5.4) K/mm3 Heparin Anti-Xa Level 1.15 H (0.3-0.7) U.I./ml POC Glucose 122 H 255 H (70-105)
[2016-10-29] MEDS: PEPCID PO SCH (22:03)
[2016-10-29] MEDS: LEVAQUIN 750MG/150ML 750 MG/150 ML BAG IV SCH (22:06)
[2016-10-30] MEDS: VERSED/NS 100MG/100ML 100 MG/100 ML BAG IV SCH ×3 (00:05→19:30)
[2016-10-30] MEDS: fentaNYL DRIP Premix 2,000 MCG/100 ML BAG IV SCH ×4 (03:03→22:03)
[2016-10-30 06:17] LABS: Hematocrit 24.1 % (30.3-42.9); Hemoglobin 7.7 gm/dl (10.1-14.3); Mean Corpuscular HGB Conc 32 % (30-34); Mean Corpuscular Hemoglobin 31 pg (28-32); Mean Corpuscular Volume 96 fl (79-97); Platelet Count 534 K/mm3 (140-440); Red Blood Count 2.51 M/mm3 (3.65-5.03); Red Cell Distribution Width 15.5 % (13.2-15.2); White Blood Count 19.8 K/mm3 (4.5-11.0)
[2016-10-30 06:42] LABS: Anion Gap 15 mmol/L; BUN/Creatinine Ratio 18.75; Blood Urea Nitrogen 15 mg/dL (7-17); Calcium 7.4 mg/dL (8.4-10.2); Carbon Dioxide 24 mmol/L (22-30); Chloride 102.6 mmol/L (98-107); Glucose 211 mg/dL (65-100); Potassium 3.7 mmol/L (3.6-5.0); Sodium 138 mmol/L (137-145)
[2016-10-30] MEDS: FLAGYL PO SCH ×3 (07:54→22:01)
[2016-10-30] MEDS: LOPRESSOR FEEDTUBE SCH ×3 (07:54→22:01)
[2016-10-30] MEDS: PEPCID PO SCH ×2 (09:31→22:00)
[2016-10-30] MEDS: HEPARIN/ 0.45% NACL-25,000 UNIT/500 ML 25,000 UNITS/500 ML BAG IV SCH (09:32)
[2016-10-30] MEDS ORDERED: LEVEMIR SUB-Q SCH (10:00)
--- NOTE | 2016-10-30 11:48 | Progress Note ---
Assessment and Plan - Patient Problems (1) Acute respiratory failure with hypercapnia Current Visit: Yes Status: Acute Plan to address problem: - continue aspiration precautions / VAP bundles - continue bronchodilators and pulmonary toilet - wean oxygen to keep sats > 94% - resume graded weaning at Psupp of 20 cmH2O - ETT day # 14-15 and will need a tracheostomy (2) Altered mental status Current Visit: Yes Status: Acute Qualifiers: Altered mental status type: A Coma depth: C Coma timing: C Plan to address problem: - no active seizures - following clinically - seen by neurology and will follow their recommendations - no seizures on EEG (3) LUCY (acute kidney injury) Current Visit: Yes Status: Acute Plan to address problem: - resolved - follow I's & O's (4) DKA (diabetic ketoacidoses) Current Visit: Yes Status: Acute Qualifiers: Diabetes mellitus type: D Diabetes mellitus complication detail: D Plan to address problem: - resolved - continue SSI (5) Sepsis Current Visit: No Status: Acute Qualifiers: Sepsis type: S Plan to address problem: (Suspect patient will need right foot intervention / amputation before she will show significant improvement clinically) - continue anti-infectives per ID recs - follow clinically - trend lactate and CRP prn (6) Discharge planning issues Current Visit: No Status: Acute Plan to address problem: - not accepted by [facility] ...remains critically ill on life sustaining treatments including MVS and at high risk for further deterioration including ...34' CCT Subjective Date of service: 10/30/16 Principal diagnosis: respiratory failure on mechanical ventilatory support, DKA Interval history: Seen and examined at bedside; 24 hour events reviewed; nursing and respiratory care staff consulted; no adverse overnight events reported to me; in room and care plan discussed; states daughter in charge of signing consents and she has been contacted; she remains on MVS and is awaiting tracheostomy Objective Vital Signs - 12hr 10/30/16 10/30/16 10/30/16 00:00 00:18 01:00 Temperature 99.6 F Pulse Rate 118 H 112 H 134 H Pulse Rate [ 161 H Apical] Respiratory 18 20 Rate Blood Pressure 115/68 115/68 159/89 O2 Sat by Pulse 97 98 98 Oximetry 10/30/16 10/30/16 10/30/16 01:30 01:45 02:00 Temperature Pulse Rate 111 H 110 H 109 H Pulse Rate [ Apical] Respiratory 18 18 18 Rate Blood Pressure 127/76 132/76 134/77 O2 Sat by Pulse 99 98 98 Oximetry 10/30/16 10/30/16 10/30/16 02:15 02:30 02:45 Temperature Pulse Rate 107 H 107 H 106 H Pulse Rate [ Apical] Respiratory 18 18 18 Rate Blood Pressure 132/78 135/81 141/83 O2 Sat by Pulse 98 98 98 Oximetry 10/30/16 10/30/16 10/30/16 03:00 03:15 03:30 Temperature Pulse Rate 104 H 120 H 145 H Pulse Rate [ Apical] Respiratory 18 16 18 Rate Blood Pressure 145/83 148/89 144/79 O2 Sat by Pulse 97 97 98 Oximetry 10/30/16 10/30/16 10/30/16 03:46 04:00 04:15 Temperature 98.3 F Pulse Rate 115 H 109 H 109 H Pulse Rate [ 108 H Apical] Respiratory 14 18 18 Rate Blood Pressure 114/66 119/67 108/64 O2 Sat by Pulse 98 100 Oximetry 10/30/16 10/30/16 10/30/16 04:30 04:45 04:57 Temperature Pulse Rate 106 H 104 H 105 H Pulse Rate [ Apical] Respiratory 15 8 L Rate Blood Pressure 109/63 112/65 O2 Sat by Pulse 99 Oximetry 10/30/16 10/30/16 10/30/16 05:00 05:15 05:30 Temperature Pulse Rate 103 H 103 H 102 H Pulse Rate [ Apical] Respiratory 18 18 18 Rate Blood Pressure 114/66 118/73 120/73 O2 Sat by Pulse Oximetry 10/30/16 10/30/16 10/30/16 05:45 06:00 06:15 Temperature Pulse Rate 71 71 70 Pulse Rate [ Apical] Respiratory 18 18 18 Rate Blood Pressure 112/56 99/58 100/54 O2 Sat by Pulse 99 99 98 Oximetry 10/30/16 10/30/16 10/30/16 06:30 06:45 07:00 Temperature Pulse Rate 70 70 70 Pulse Rate [ Apical] Respiratory 18 18 18 Rate Blood Pressure 98/54 95/56 98/54 O2 Sat by Pulse 100 100 100 Oximetry 10/30/16 10/30/16 10/30/16 07:15 07:30 07:45 Temperature Pulse Rate 70 69 69 Pulse Rate [ Apical] Respiratory 18 18 18 Rate Blood Pressure 103/57 98/55 98/54 O2 Sat by Pulse 100 100 100 Oximetry 10/30/16 10/30/16 10/30/16 07:54 08:00 08:15 Temperature 99.6 F Pulse Rate 70 69 72 Pulse Rate [ Apical] Respiratory 18 18 Rate Blood Pressure 98/54 93/55 93/53 O2 Sat by Pulse 100 Oximetry 10/30/16 10/30/16 10/30/16 08:30 08:40 08:45 Temperature Pulse Rate 71 73 70 Pulse Rate [ Apical] Respiratory 18 18 Rate Blood Pressure 94/53 95/55 93/53 O2 Sat by Pulse 100 100 Oximetry 10/30/16 10/30/16 10/30/16 09:00 09:15 09:30 Temperature Pulse Rate 70 69 68 Pulse Rate [ Apical] Respiratory 18 18 18 Rate Blood Pressure 99/53 96/54 99/55 O2 Sat by Pulse 100 100 Oximetry 10/30/16 10/30/16 09:45 10:00 Temperature Pulse Rate 68 68 Pulse Rate [ Apical] Respiratory 17 18 Rate Blood Pressure 103/54 103/56 O2 Sat by Pulse 100 100 Oximetry Constitutional: no acute distress, other (? delirium / dementia element) Eyes: non-icteric ENT: oropharynx moist Neck: supple, no lymphadenopathy Effort: mildly labored Ascultation: Bilateral: diminished breath sounds, rales (bases) Cardiovascular: regular rate and rhythm, other (tachycardia) Gastrointestinal: normoactive bowel sounds, soft, non-tender, non-distended Integumentary: normal Extremities: no cyanosis, no edema, no ischemia or petechiae, other (cold right foot with digital ischemia) Neurologic: non-focal exam (grossly), unable to assess Psychiatric: other (sedated) CBC and BMP: 11/01/16 06:33 11/01/16 06:33 ABG, PT/INR, D-dimer: ABG POC ABG pH 7.398 (7.35-7.45) 10/26/16 15:28 POC ABG pCO2 33.7 (35-45) L 10/26/16 15:28 POC ABG pO2 99 (80-105) 10/26/16 15:28 POC ABG HCO3 20.8 10/26/16 15:28 POC ABG Total CO2 22 10/26/16 15:28 POC ABG O2 Sat 98 10/26/16 15:28 PT/INR, D-dimer PT 16.4 Sec. (12.2-14.9) H 10/17/16 16:07 INR 1.33 (0.87-1.13) H 10/17/16 16:07 Abnormal lab findings: Abnormal Labs 10/13/16 10/13/16 10/13/16 06:38 06:38 07:23 WBC RBC Hgb Hct MCV RDW Plt Count Lymph % (Auto) [place] % (Auto) [place] # Seg Neutrophils % Seg Neuts % (Manual) Lymphocytes % (Manual) Monocytes % (Manual) Seg Neutrophils # Seg Neutrophils # Man Lymphocytes # (Manual) Monocytes # (Manual) Eosinophils # (Manual) Basophils # (Manual) PT INR APTT Heparin Anti-Xa Level POC ABG pH POC ABG pCO2 POC ABG pO2 Sodium Potassium 6.2 H* Chloride Carbon Dioxide 8 L* BUN 85 H Creatinine 2.8 H Glucose 602 H* POC Glucose 495 H Calcium 7.9 L Phosphorus 6.9 H D Magnesium 3.0 H AST C-Reactive Protein Total Protein Albumin Lipase Vitamin B12 TSH Urine WBC (Auto) Urine Chloride Urine Total Protein Crossmatch 10/13/16 10/13/16 10/13/16 08:49 08:55 10:12 WBC RBC Hgb Hct MCV RDW Plt Count Lymph % (Auto) [place] % (Auto) [place] # Seg Neutrophils % Seg Neuts % (Manual) Lymphocytes % (Manual) Monocytes % (Manual) Seg Neutrophils # Seg Neutrophils # Man Lymphocytes # (Manual) Monocytes # (Manual) Eosinophils # (Manual) Basophils # (Manual) PT INR APTT Heparin Anti-Xa Level POC ABG pH POC ABG pCO2 POC ABG pO2 Sodium Potassium 5.6 H Chloride Carbon Dioxide 11 L BUN 77 H Creatinine 2.7 H Glucose 457 H POC Glucose > 500 H 424 H Calcium 8.0 L Phosphorus Magnesium AST C-Reactive Protein Total Protein Albumin Lipase Vitamin B12 TSH Urine WBC (Auto) Urine Chloride Urine Total Protein Crossmatch 10/13/16 10/13/16 10/13/16 10:44 11:22 12:20 WBC RBC Hgb Hct MCV RDW Plt Count Lymph % (Auto) [place] % (Auto) [place] # Seg Neutrophils % Seg Neuts % (Manual) Lymphocytes % (Manual) Monocytes % (Manual) Seg Neutrophils # Seg Neutrophils # Man Lymphocytes # (Manual) Monocytes # (Manual) Eosinophils # (Manual) Basophils # (Manual) PT INR APTT Heparin Anti-Xa Level POC ABG pH POC ABG pCO2 POC ABG pO2 Sodium Potassium 5.4 H Chloride Carbon Dioxide 14 L BUN 72 H Creatinine 2.6 H Glucose 383 H POC Glucose 391 H 313 H Calcium 8.2 L Phosphorus Magnesium AST C-Reactive Protein Total Protein Albumin Lipase Vitamin B12 TSH Urine WBC (Auto) Urine Chloride Urine Total Protein Crossmatch 10/13/16 10/13/16 10/13/16 13:32 14:44 15:57 WBC RBC Hgb Hct MCV RDW Plt Count Lymph % (Auto) [place] % (Auto) [place] # Seg Neutrophils % Seg Neuts % (Manual) Lymphocytes % (Manual) Monocytes % (Manual) Seg Neutrophils # Seg Neutrophils # Man Lymphocytes # (Manual) Monocytes # (Manual) Eosinophils # (Manual) Basophils # (Manual) PT INR APTT Heparin Anti-Xa Level POC ABG pH POC ABG pCO2 POC ABG pO2 Sodium Potassium Chloride Carbon Dioxide BUN Creatinine Glucose POC Glucose 296 H 210 H 190 H Calcium Phosphorus Magnesium AST C-Reactive Protein Total Protein Albumin Lipase Vitamin B12 TSH Urine WBC (Auto) Urine Chloride Urine Total Protein Crossmatch 10/13/16 10/13/16 10/13/16 16:14 16:14 17:17 WBC RBC Hgb Hct MCV RDW Plt Count Lymph % (Auto) [place] % (Auto) [place] # Seg Neutrophils % Seg Neuts % (Manual) Lymphocytes % (Manual) Monocytes % (Manual) Seg Neutrophils # Seg Neutrophils # Man Lymphocytes # (Manual) Monocytes # (Manual) Eosinophils # (Manual) Basophils # (Manual) PT INR APTT Heparin Anti-Xa Level POC ABG pH POC ABG pCO2 POC ABG pO2 Sodium Potassium Chloride Carbon Dioxide 17 L BUN 58 H Creatinine 1.8 H Glucose 172 H POC Glucose 193 H Calcium 7.7 L Phosphorus Magnesium AST C-Reactive Protein 10.50 H Total Protein Albumin Lipase Vitamin B12 TSH Urine WBC (Auto) Urine Chloride Urine Total Protein Crossmatch 10/13/16 10/13/16 10/13/16 17:55 18:32 19:41 WBC RBC Hgb Hct MCV RDW Plt Count Lymph % (Auto) [place] % (Auto) [place] # Seg Neutrophils % Seg Neuts % (Manual) Lymphocytes % (Manual) Monocytes % (Manual) Seg Neutrophils # Seg Neutrophils # Man Lymphocytes # (Manual) Monocytes # (Manual) Eosinophils # (Manual) Basophils # (Manual) PT INR APTT Heparin Anti-Xa Level POC ABG pH POC ABG pCO2 30.6 L POC ABG pO2 218 H Sodium Potassium Chloride Carbon Dioxide BUN Creatinine Glucose POC Glucose 192 H 177 H Calcium Phosphorus Magnesium AST C-Reactive Protein Total Protein Albumin Lipase Vitamin B12 TSH Urine WBC (Auto) Urine Chloride Urine Total Protein Crossmatch 10/13/16 10/13/16 10/13/16 20:54 22:07 23:13 WBC RBC Hgb Hct MCV RDW Plt Count Lymph % (Auto) [place] % (Auto) [place] # Seg Neutrophils % Seg Neuts % (Manual) Lymphocytes % (Manual) Monocytes % (Manual) Seg Neutrophils # Seg Neutrophils # Man Lymphocytes # (Manual) Monocytes # (Manual) Eosinophils # (Manual) Basophils # (Manual) PT INR APTT Heparin Anti-Xa Level POC ABG pH POC ABG pCO2 POC ABG pO2 Sodium Potassium Chloride Carbon Dioxide BUN Creatinine Glucose POC Glucose 178 H 160 H 168 H Calcium Phosphorus Magnesium AST C-Reactive Protein Total Protein Albumin Lipase Vitamin B12 TSH Urine WBC (Auto) Urine Chloride Urine Total Protein Crossmatch 10/13/16 10/13/16 10/14/16 23:25 Unknown 00:21 WBC RBC Hgb Hct MCV RDW Plt Count Lymph % (Auto) [place] % (Auto) [place] # Seg Neutrophils % Seg Neuts % (Manual) Lymphocytes % (Manual) Monocytes % (Manual) Seg Neutrophils # Seg Neutrophils # Man Lymphocytes # (Manual) Monocytes # (Manual) Eosinophils # (Manual) Basophils # (Manual) PT INR APTT Heparin Anti-Xa Level POC ABG pH POC ABG pCO2 POC ABG pO2 Sodium 148 H Potassium Chloride 114.6 H Carbon Dioxide 17 L BUN 56 H Creatinine 1.6 H Glucose 151 H POC Glucose 171 H Calcium 7.8 L Phosphorus Magnesium AST C-Reactive Protein Total Protein Albumin Lipase Vitamin B12 TSH Urine WBC (Auto) Urine Chloride 10.0 L Urine Total Protein < 4 L Crossmatch 10/14/16 10/14/16 10/14/16 01:22 02:29 03:30 WBC RBC Hgb Hct MCV RDW Plt Count Lymph % (Auto) [place] % (Auto) [place] # Seg Neutrophils % Seg Neuts % (Manual) Lymphocytes % (Manual) Monocytes % (Manual) Seg Neutrophils # Seg Neutrophils # Man Lymphocytes # (Manual) Monocytes # (Manual) Eosinophils # (Manual) Basophils # (Manual) PT INR APTT Heparin Anti-Xa Level POC ABG pH POC ABG pCO2 POC ABG pO2 Sodium Potassium Chloride Carbon Dioxide BUN Creatinine Glucose POC Glucose 144 H 136 H 143 H Calcium Phosphorus Magnesium AST C-Reactive Protein Total Protein Albumin Lipase Vitamin B12 TSH Urine WBC (Auto) Urine Chloride Urine Total Protein Crossmatch 10/14/16 10/14/16 10/14/16 04:28 05:16 05:44 WBC RBC Hgb Hct MCV RDW Plt Count Lymph % (Auto) [place] % (Auto) [place] # Seg Neutrophils % Seg Neuts % (Manual) Lymphocytes % (Manual) Monocytes % (Manual) Seg Neutrophils # Seg Neutrophils # Man Lymphocytes # (Manual) Monocytes # (Manual) Eosinophils # (Manual) Basophils # (Manual) PT INR APTT Heparin Anti-Xa Level POC ABG pH POC ABG pCO2 28.2 L POC ABG pO2 125 H Sodium Potassium Chloride Carbon Dioxide BUN Creatinine Glucose POC Glucose 133 H 160 H Calcium Phosphorus Magnesium AST C-Reactive Protein Total Protein Albumin Lipase Vitamin B12 TSH Urine WBC (Auto) Urine Chloride Urine Total Protein Crossmatch 10/14/16 10/14/16 10/14/16 06:12 06:45 07:03 WBC RBC Hgb Hct MCV RDW Plt Count Lymph % (Auto) [place] % (Auto) [place] # Seg Neutrophils % Seg Neuts % (Manual) Lymphocytes % (Manual) Monocytes % (Manual) Seg Neutrophils # Seg Neutrophils # Man Lymphocytes # (Manual) Monocytes # (Manual) Eosinophils # (Manual) Basophils # (Manual) PT INR APTT Heparin Anti-Xa Level POC ABG pH POC ABG pCO2 POC ABG pO2 Sodium 149 H Potassium Chloride 115.4 H Carbon Dioxide 17 L BUN 45 H Creatinine 1.5 H Glucose 139 H POC Glucose 149 H Calcium 7.4 L Phosphorus 1.0 L D Magnesium AST C-Reactive Protein Total Protein Albumin Lipase Vitamin B12 TSH Urine WBC (Auto) Urine Chloride Urine Total Protein Crossmatch 10/14/16 10/14/16 10/14/16 07:03 08:02 09:16 WBC RBC Hgb Hct MCV RDW Plt Count Lymph % (Auto) [place] % (Auto) [place] # Seg Neutrophils % Seg Neuts % (Manual) Lymphocytes % (Manual) Monocytes % (Manual) Seg Neutrophils # Seg Neutrophils # Man Lymphocytes # (Manual) Monocytes # (Manual) Eosinophils # (Manual) Basophils # (Manual) PT INR APTT Heparin Anti-Xa Level POC ABG pH POC ABG pCO2 POC ABG pO2 Sodium Potassium Chloride Carbon Dioxide BUN Creatinine Glucose POC Glucose 156 H 158 H Calcium Phosphorus Magnesium AST C-Reactive Protein Total Protein Albumin Lipase 738 H Vitamin B12 TSH Urine WBC (Auto) Urine Chloride Urine Total Protein Crossmatch 10/14/16 10/14/16 10/14/16 10:26 11:03 11:57 WBC RBC Hgb Hct MCV RDW Plt Count Lymph % (Auto) [place] % (Auto) [place] # Seg Neutrophils % Seg Neuts % (Manual) Lymphocytes % (Manual) Monocytes % (Manual) Seg Neutrophils # Seg Neutrophils # Man Lymphocytes # (Manual) Monocytes # (Manual) Eosinophils # (Manual) Basophils # (Manual) PT INR APTT Heparin Anti-Xa Level POC ABG pH 7.198 L POC ABG pCO2 47.5 H POC ABG pO2 Sodium Potassium Chloride Carbon Dioxide BUN Creatinine Glucose POC Glucose 174 H 189 H Calcium Phosphorus Magnesium AST C-Reactive Protein Total Protein Albumin Lipase Vitamin B12 TSH Urine WBC (Auto) Urine Chloride Urine Total Protein Crossmatch 10/14/16 10/14/16 10/14/16 12:02 12:02 13:11 WBC 13.4 H RBC 3.60 L Hgb Hct MCV 98 H D RDW 13.1 L Plt Count Lymph % (Auto) [place] % (Auto) [place] # Seg Neutrophils % Seg Neuts % (Manual) Lymphocytes % (Manual) Monocytes % (Manual) Seg Neutrophils # Seg Neutrophils # Man Lymphocytes # (Manual) Monocytes # (Manual) Eosinophils # (Manual) Basophils # (Manual) PT INR APTT Heparin Anti-Xa Level POC ABG pH POC ABG pCO2 POC ABG pO2 Sodium Potassium Chloride 110.7 H Carbon Dioxide 19 L BUN 38 H Creatinine 1.4 H Glucose 182 H POC Glucose 173 H Calcium 7.5 L Phosphorus Magnesium AST C-Reactive Protein Total Protein Albumin Lipase Vitamin B12 TSH Urine WBC (Auto) Urine Chloride Urine Total Protein Crossmatch 10/14/16 10/14/16 10/14/16 14:24 15:31 16:36 WBC RBC Hgb Hct MCV RDW Plt Count Lymph % (Auto) [place] % (Auto) [place] # Seg Neutrophils % Seg Neuts % (Manual) Lymphocytes % (Manual) Monocytes % (Manual) Seg Neutrophils # Seg Neutrophils # Man Lymphocytes # (Manual) Monocytes # (Manual) Eosinophils # (Manual) Basophils # (Manual) PT INR APTT Heparin Anti-Xa Level POC ABG pH POC ABG pCO2 POC ABG pO2 Sodium Potassium Chloride Carbon Dioxide BUN Creatinine Glucose POC Glucose 123 H 124 H 156 H Calcium Phosphorus Magnesium AST C-Reactive Protein Total Protein Albumin Lipase Vitamin B12 TSH Urine WBC (Auto) Urine Chloride Urine Total Protein Crossmatch 10/14/16 10/14/16 10/14/16 17:43 19:00 20:08 WBC RBC Hgb Hct MCV RDW Plt Count Lymph % (Auto) [place] % (Auto) [place] # Seg Neutrophils % Seg Neuts % (Manual) Lymphocytes % (Manual) Monocytes % (Manual) Seg Neutrophils # Seg Neutrophils # Man Lymphocytes # (Manual) Monocytes # (Manual) Eosinophils # (Manual) Basophils # (Manual) PT INR APTT Heparin Anti-Xa Level POC ABG pH POC ABG pCO2 POC ABG pO2 Sodium Potassium Chloride Carbon Dioxide BUN Creatinine Glucose POC Glucose 154 H 123 H 138 H Calcium Phosphorus Magnesium AST C-Reactive Protein Total Protein Albumin Lipase Vitamin B12 TSH Urine WBC (Auto) Urine Chloride Urine Total Protein Crossmatch 10/14/16 10/14/16 10/14/16 21:17 22:25 23:37 WBC RBC Hgb Hct MCV RDW Plt Count Lymph % (Auto) [place] % (Auto) [place] # Seg Neutrophils % Seg Neuts % (Manual) Lymphocytes % (Manual) Monocytes % (Manual) Seg Neutrophils # Seg Neutrophils # Man Lymphocytes # (Manual) Monocytes # (Manual) Eosinophils # (Manual) Basophils # (Manual) PT INR APTT Heparin Anti-Xa Level POC ABG pH POC ABG pCO2 POC ABG pO2 Sodium Potassium Chloride Carbon Dioxide BUN Creatinine Glucose POC Glucose 148 H 132 H 137 H Calcium Phosphorus Magnesium AST C-Reactive Protein Total Protein Albumin Lipase Vitamin B12 TSH Urine WBC (Auto) Urine Chloride Urine Total Protein Crossmatch 10/15/16 10/15/16 10/15/16 00:49 01:53 03:06 WBC RBC Hgb Hct MCV RDW Plt Count Lymph % (Auto) [place] % (Auto) [place] # Seg Neutrophils % Seg Neuts % (Manual) Lymphocytes % (Manual) Monocytes % (Manual) Seg Neutrophils # Seg Neutrophils # Man Lymphocytes # (Manual) Monocytes # (Manual) Eosinophils # (Manual) Basophils # (Manual) PT INR APTT Heparin Anti-Xa Level POC ABG pH POC ABG pCO2 POC ABG pO2 Sodium Potassium Chloride Carbon Dioxide BUN Creatinine Glucose POC Glucose 132 H 134 H 134 H Calcium Phosphorus Magnesium AST C-Reactive Protein Total Protein Albumin Lipase Vitamin B12 TSH Urine WBC (Auto) Urine Chloride Urine Total Protein Crossmatch 10/15/16 10/15/16 10/15/16 04:40 04:46 06:21 WBC RBC Hgb Hct MCV RDW Plt Count Lymph % (Auto) [place] % (Auto) [place] # Seg Neutrophils % Seg Neuts % (Manual) Lymphocytes % (Manual) Monocytes % (Manual) Seg Neutrophils # Seg Neutrophils # Man Lymphocytes # (Manual) Monocytes # (Manual) Eosinophils # (Manual) Basophils # (Manual) PT INR APTT Heparin Anti-Xa Level POC ABG pH POC ABG pCO2 30.7 L POC ABG pO2 108 H Sodium Potassium Chloride 109.0 H Carbon Dioxide 17 L BUN 27 H Creatinine Glucose 124 H POC Glucose 160 H Calcium 7.5 L Phosphorus Magnesium AST 79 H C-Reactive Protein Total Protein 5.5 L Albumin 3.0 L Lipase Vitamin B12 TSH Urine WBC (Auto) Urine Chloride Urine Total Protein Crossmatch 10/15/16 10/15/16 10/15/16 07:12 08:01 09:03 WBC RBC Hgb Hct MCV RDW Plt Count Lymph % (Auto) [place] % (Auto) [place] # Seg Neutrophils % Seg Neuts % (Manual) Lymphocytes % (Manual) Monocytes % (Manual) Seg Neutrophils # Seg Neutrophils # Man Lymphocytes # (Manual) Monocytes # (Manual) Eosinophils # (Manual) Basophils # (Manual) PT INR APTT Heparin Anti-Xa Level POC ABG pH POC ABG pCO2 POC ABG pO2 Sodium Potassium Chloride Carbon Dioxide BUN Creatinine Glucose POC Glucose 179 H 187 H 165 H Calcium Phosphorus Magnesium AST C-Reactive Protein Total Protein Albumin Lipase Vitamin B12 TSH Urine WBC (Auto) Urine Chloride Urine Total Protein Crossmatch 10/15/16 10/15/16 10/15/16 10:06 10:06 10:07 WBC 12.1 H RBC 3.01 L Hgb 9.7 L Hct 29.6 L MCV 98 H RDW Plt Count 129 L Lymph % (Auto) [place] % (Auto) [place] # Seg Neutrophils % Seg Neuts % (Manual) Lymphocytes % (Manual) Monocytes % (Manual) Seg Neutrophils # Seg Neutrophils # Man Lymphocytes # (Manual) Monocytes # (Manual) Eosinophils # (Manual) Basophils # (Manual) PT INR APTT Heparin Anti-Xa Level POC ABG pH POC ABG pCO2 POC ABG pO2 Sodium Potassium 3.2 L D Chloride 109.6 H Carbon Dioxide 18 L BUN 22 H Creatinine Glucose 127 H POC Glucose 147 H Calcium 7.0 L Phosphorus Magnesium AST C-Reactive Protein Total Protein Albumin Lipase Vitamin B12 TSH Urine WBC (Auto) Urine Chloride Urine Total Protein Crossmatch 10/15/16 10/15/16 10/15/16 11:05 11:06 11:57 WBC RBC Hgb Hct MCV RDW Plt Count Lymph % (Auto) [place] % (Auto) [place] # Seg Neutrophils % Seg Neuts % (Manual) Lymphocytes % (Manual) Monocytes % (Manual) Seg Neutrophils # Seg Neutrophils # Man Lymphocytes # (Manual) Monocytes # (Manual) Eosinophils # (Manual) Basophils # (Manual) PT INR APTT Heparin Anti-Xa Level POC ABG pH 7.305 L POC ABG pCO2 POC ABG pO2 Sodium Potassium Chloride Carbon Dioxide BUN Creatinine Glucose POC Glucose 145 H Calcium Phosphorus Magnesium AST C-Reactive Protein Total Protein Albumin Lipase Vitamin B12 TSH Urine WBC (Auto) 7.0 H Urine Chloride Urine Total Protein Crossmatch 10/15/16 10/15/16 10/15/16 12:04 13:59 15:24 WBC RBC Hgb Hct MCV RDW Plt Count Lymph % (Auto) [place] % (Auto) [place] # Seg Neutrophils % Seg Neuts % (Manual) Lymphocytes % (Manual) Monocytes % (Manual) Seg Neutrophils # Seg Neutrophils # Man Lymphocytes # (Manual) Monocytes # (Manual) Eosinophils # (Manual) Basophils # (Manual) PT INR APTT Heparin Anti-Xa Level POC ABG pH POC ABG pCO2 POC ABG pO2 Sodium Potassium Chloride Carbon Dioxide BUN Creatinine Glucose POC Glucose 123 H 147 H 153 H Calcium Phosphorus Magnesium AST C-Reactive Protein Total Protein Albumin Lipase Vitamin B12 TSH Urine WBC (Auto) Urine Chloride Urine Total Protein Crossmatch 10/15/16 10/15/16 10/15/16 16:30 17:34 18:30 WBC RBC Hgb Hct MCV RDW Plt Count Lymph % (Auto) [place] % (Auto) [place] # Seg Neutrophils % Seg Neuts % (Manual) Lymphocytes % (Manual) Monocytes % (Manual) Seg Neutrophils # Seg Neutrophils # Man Lymphocytes # (Manual) Monocytes # (Manual) Eosinophils # (Manual) Basophils # (Manual) PT INR APTT Heparin Anti-Xa Level POC ABG pH POC ABG pCO2 POC ABG pO2 Sodium Potassium Chloride Carbon Dioxide BUN Creatinine Glucose POC Glucose 223 H 236 H 164 H Calcium Phosphorus Magnesium AST C-Reactive Protein Total Protein Albumin Lipase Vitamin B12 TSH Urine WBC (Auto) Urine Chloride Urine Total Protein Crossmatch 10/15/16 10/15/16 10/15/16 19:14 20:31 21:23 WBC RBC Hgb Hct MCV RDW Plt Count Lymph % (Auto) [place] % (Auto) [place] # Seg Neutrophils % Seg Neuts % (Manual) Lymphocytes % (Manual) Monocytes % (Manual) Seg Neutrophils # Seg Neutrophils # Man Lymphocytes # (Manual) Monocytes # (Manual) Eosinophils # (Manual) Basophils # (Manual) PT INR APTT Heparin Anti-Xa Level POC ABG pH POC ABG pCO2 POC ABG pO2 Sodium Potassium Chloride Carbon Dioxide BUN Creatinine Glucose POC Glucose 138 H 158 H 158 H Calcium Phosphorus Magnesium AST C-Reactive Protein Total Protein Albumin Lipase Vitamin B12 TSH Urine WBC (Auto) Urine Chloride Urine Total Protein Crossmatch 10/15/16 10/15/16 10/16/16 22:04 22:57 00:11 WBC RBC Hgb Hct MCV RDW Plt Count Lymph % (Auto) [place] % (Auto) [place] # Seg Neutrophils % Seg Neuts % (Manual) Lymphocytes % (Manual) Monocytes % (Manual) Seg Neutrophils # Seg Neutrophils # Man Lymphocytes # (Manual) Monocytes # (Manual) Eosinophils # (Manual) Basophils # (Manual) PT INR APTT Heparin Anti-Xa Level POC ABG pH POC ABG pCO2 POC ABG pO2 Sodium Potassium Chloride Carbon Dioxide BUN Creatinine Glucose POC Glucose 168 H 213 H 166 H Calcium Phosphorus Magnesium AST C-Reactive Protein Total Protein Albumin Lipase Vitamin B12 TSH Urine WBC (Auto) Urine Chloride Urine Total Protein Crossmatch 10/16/16 10/16/16 10/16/16 01:16 02:32 03:38 WBC RBC Hgb Hct MCV RDW Plt Count Lymph % (Auto) [place] % (Auto) [place] # Seg Neutrophils % Seg Neuts % (Manual) Lymphocytes % (Manual) Monocytes % (Manual) Seg Neutrophils # Seg Neutrophils # Man Lymphocytes # (Manual) Monocytes # (Manual) Eosinophils # (Manual) Basophils # (Manual) PT INR APTT Heparin Anti-Xa Level POC ABG pH POC ABG pCO2 POC ABG pO2 Sodium Potassium Chloride Carbon Dioxide BUN Creatinine Glucose POC Glucose 171 H 164 H 147 H Calcium Phosphorus Magnesium AST C-Reactive Protein Total Protein Albumin Lipase Vitamin B12 TSH Urine WBC (Auto) Urine Chloride Urine Total Protein Crossmatch 10/16/16 10/16/16 10/16/16 04:14 04:14 04:49 WBC RBC Hgb Hct MCV RDW Plt Count Lymph % (Auto) [place] % (Auto) [place] # Seg Neutrophils % Seg Neuts % (Manual) Lymphocytes % (Manual) Monocytes % (Manual) Seg Neutrophils # Seg Neutrophils # Man Lymphocytes # (Manual) Monocytes # (Manual) Eosinophils # (Manual) Basophils # (Manual) PT INR APTT Heparin Anti-Xa Level POC ABG pH POC ABG pCO2 POC ABG pO2 Sodium 147 H Potassium Chloride 110.9 H Carbon Dioxide 19 L BUN Creatinine Glucose 139 H POC Glucose 144 H Calcium 7.3 L Phosphorus 2.3 L Magnesium AST C-Reactive Protein Total Protein Albumin Lipase 143 H Vitamin B12 TSH Urine WBC (Auto) Urine Chloride Urine Total Protein Crossmatch 10/16/16 10/16/16 10/16/16 05:03 05:41 05:58 WBC 16.5 H RBC 3.36 L Hgb Hct MCV 98 H RDW 13.1 L Plt Count Lymph % (Auto) 8.5 L [place] % (Auto) 7.6 H [place] # 1.3 H Seg Neutrophils % 83.3 H Seg Neuts % (Manual) Lymphocytes % (Manual) Monocytes % (Manual) Seg Neutrophils # 13.8 H Seg Neutrophils # Man Lymphocytes # (Manual) Monocytes # (Manual) Eosinophils # (Manual) Basophils # (Manual) PT INR APTT Heparin Anti-Xa Level POC ABG pH POC ABG pCO2 30.7 L POC ABG pO2 128 H Sodium Potassium Chloride Carbon Dioxide BUN Creatinine Glucose POC Glucose 131 H Calcium Phosphorus Magnesium AST C-Reactive Protein Total Protein Albumin Lipase Vitamin B12 TSH Urine WBC (Auto) Urine Chloride Urine Total Protein Crossmatch 10/16/16 10/16/16 10/16/16 06:32 09:27 09:35 WBC RBC Hgb Hct MCV RDW Plt Count Lymph % (Auto) [place] % (Auto) [place] # Seg Neutrophils % Seg Neuts % (Manual) Lymphocytes % (Manual) Monocytes % (Manual) Seg Neutrophils # Seg Neutrophils # Man Lymphocytes # (Manual) Monocytes # (Manual) Eosinophils # (Manual) Basophils # (Manual) PT INR APTT Heparin Anti-Xa Level POC ABG pH POC ABG pCO2 32.8 L POC ABG pO2 137 H Sodium Potassium Chloride Carbon Dioxide BUN Creatinine Glucose POC Glucose 121 H 150 H Calcium Phosphorus Magnesium AST C-Reactive Protein Total Protein Albumin Lipase Vitamin B12 TSH Urine WBC (Auto) Urine Chloride Urine Total Protein Crossmatch 10/16/16 10/16/16 10/16/16 10:47 13:27 14:24 WBC RBC Hgb Hct MCV RDW Plt Count Lymph % (Auto) [place] % (Auto) [place] # Seg Neutrophils % Seg Neuts % (Manual) Lymphocytes % (Manual) Monocytes % (Manual) Seg Neutrophils # Seg Neutrophils # Man Lymphocytes # (Manual) Monocytes # (Manual) Eosinophils # (Manual) Basophils # (Manual) PT INR APTT Heparin Anti-Xa Level POC ABG pH POC ABG pCO2 POC ABG pO2 Sodium Potassium Chloride Carbon Dioxide BUN Creatinine Glucose POC Glucose 184 H 171 H 174 H Calcium Phosphorus Magnesium AST C-Reactive Protein Total Protein Albumin Lipase Vitamin B12 TSH Urine WBC (Auto) Urine Chloride Urine Total Protein Crossmatch 10/16/16 10/16/16 10/16/16 15:48 16:26 18:17 WBC RBC Hgb Hct MCV RDW Plt Count Lymph % (Auto) [place] % (Auto) [place] # Seg Neutrophils % Seg Neuts % (Manual) Lymphocytes % (Manual) Monocytes % (Manual) Seg Neutrophils # Seg Neutrophils # Man Lymphocytes # (Manual) Monocytes # (Manual) Eosinophils # (Manual) Basophils # (Manual) PT INR APTT Heparin Anti-Xa Level POC ABG pH POC ABG pCO2 POC ABG pO2 Sodium Potassium Chloride Carbon Dioxide BUN Creatinine Glucose POC Glucose 205 H 204 H 234 H Calcium Phosphorus Magnesium AST C-Reactive Protein Total Protein Albumin Lipase Vitamin B12 TSH Urine WBC (Auto) Urine Chloride Urine Total Protein Crossmatch 10/16/16 10/16/16 10/16/16 19:40 20:33 21:36 WBC RBC Hgb Hct MCV RDW Plt Count Lymph % (Auto) [place] % (Auto) [place] # Seg Neutrophils % Seg Neuts % (Manual) Lymphocytes % (Manual) Monocytes % (Manual) Seg Neutrophils # Seg Neutrophils # Man Lymphocytes # (Manual) Monocytes # (Manual) Eosinophils # (Manual) Basophils # (Manual) PT INR APTT Heparin Anti-Xa Level POC ABG pH POC ABG pCO2 POC ABG pO2 Sodium Potassium Chloride Carbon Dioxide BUN Creatinine Glucose POC Glucose 167 H 153 H 158 H Calcium Phosphorus Magnesium AST C-Reactive Protein Total Protein Albumin Lipase Vitamin B12 TSH Urine WBC (Auto) Urine Chloride Urine Total Protein Crossmatch 10/16/16 10/16/16 10/17/16 22:54 23:48 00:47 WBC RBC Hgb Hct MCV RDW Plt Count Lymph % (Auto) [place] % (Auto) [place] # Seg Neutrophils % Seg Neuts % (Manual) Lymphocytes % (Manual) Monocytes % (Manual) Seg Neutrophils # Seg Neutrophils # Man Lymphocytes # (Manual) Monocytes # (Manual) Eosinophils # (Manual) Basophils # (Manual) PT INR APTT Heparin Anti-Xa Level POC ABG pH POC ABG pCO2 POC ABG pO2 Sodium Potassium Chloride Carbon Dioxide BUN Creatinine Glucose POC Glucose 180 H 207 H 196 H Calcium Phosphorus Magnesium AST C-Reactive Protein Total Protein Albumin Lipase Vitamin B12 TSH Urine WBC (Auto) Urine Chloride Urine Total Protein Crossmatch 10/17/16 10/17/16 10/17/16 01:57 02:49 03:50 WBC RBC Hgb Hct MCV RDW Plt Count Lymph % (Auto) [place] % (Auto) [place] # Seg Neutrophils % Seg Neuts % (Manual) Lymphocytes % (Manual) Monocytes % (Manual) Seg Neutrophils # Seg Neutrophils # Man Lymphocytes # (Manual) Monocytes # (Manual) Eosinophils # (Manual) Basophils # (Manual) PT INR APTT Heparin Anti-Xa Level POC ABG pH POC ABG pCO2 POC ABG pO2 Sodium Potassium Chloride Carbon Dioxide BUN Creatinine Glucose POC Glucose 180 H 151 H 106 H Calcium Phosphorus Magnesium AST C-Reactive Protein Total Protein Albumin Lipase Vitamin B12 TSH Urine WBC (Auto) Urine Chloride Urine Total Protein Crossmatch 10/17/16 10/17/16 10/17/16 04:59 06:03 06:35 WBC RBC Hgb Hct MCV RDW Plt Count Lymph % (Auto) [place] % (Auto) [place] # Seg Neutrophils % Seg Neuts % (Manual) Lymphocytes % (Manual) Monocytes % (Manual) Seg Neutrophils # Seg Neutrophils # Man Lymphocytes # (Manual) Monocytes # (Manual) Eosinophils # (Manual) Basophils # (Manual) PT INR APTT Heparin Anti-Xa Level POC ABG pH 7.453 H POC ABG pCO2 30.1 L POC ABG pO2 111 H Sodium Potassium Chloride Carbon Dioxide BUN Creatinine Glucose POC Glucose 145 H 157 H Calcium Phosphorus Magnesium AST C-Reactive Protein Total Protein Albumin Lipase Vitamin B12 TSH Urine WBC (Auto) Urine Chloride Urine Total Protein Crossmatch 10/17/16 10/17/16 10/17/16 07:08 07:11 08:01 WBC RBC Hgb Hct MCV RDW Plt Count Lymph % (Auto) [place] % (Auto) [place] # Seg Neutrophils % Seg Neuts % (Manual) Lymphocytes % (Manual) Monocytes % (Manual) Seg Neutrophils # Seg Neutrophils # Man Lymphocytes # (Manual) Monocytes # (Manual) Eosinophils # (Manual) Basophils # (Manual) PT INR APTT Heparin Anti-Xa Level POC ABG pH POC ABG pCO2 POC ABG pO2 Sodium 147 H Potassium Chloride 113.8 H Carbon Dioxide 19 L BUN Creatinine Glucose 136 H POC Glucose 136 H 152 H Calcium 7.7 L Phosphorus Magnesium AST C-Reactive Protein Total Protein Albumin Lipase Vitamin B12 TSH Urine WBC (Auto) Urine Chloride Urine Total Protein Crossmatch 10/17/16 10/17/16 10/17/16 08:23 09:17 09:53 WBC 18.1 H RBC 3.01 L Hgb 9.7 L Hct 29.4 L MCV 98 H RDW Plt Count 116 L Lymph % (Auto) [place] % (Auto) [place] # Seg Neutrophils % Seg Neuts % (Manual) 77.0 H Lymphocytes % (Manual) 4.0 L Monocytes % (Manual) 12.0 H Seg Neutrophils # Seg Neutrophils # Man 13.9 H Lymphocytes # (Manual) 0.7 L Monocytes # (Manual) 2.2 H Eosinophils # (Manual) Basophils # (Manual) PT INR APTT Heparin Anti-Xa Level POC ABG pH POC ABG pCO2 POC ABG pO2 Sodium Potassium Chloride Carbon Dioxide BUN Creatinine Glucose POC Glucose 148 H 137 H Calcium Phosphorus Magnesium AST C-Reactive Protein Total Protein Albumin Lipase Vitamin B12 TSH Urine WBC (Auto) Urine Chloride Urine Total Protein Crossmatch 10/17/16 10/17/16 10/17/16 11:43 16:07 17:42 WBC RBC Hgb Hct MCV RDW Plt Count Lymph % (Auto) [place] % (Auto) [place] # Seg Neutrophils % Seg Neuts % (Manual) Lymphocytes % (Manual) Monocytes % (Manual) Seg Neutrophils # Seg Neutrophils # Man Lymphocytes # (Manual) Monocytes # (Manual) Eosinophils # (Manual) Basophils # (Manual) PT 16.4 H INR 1.33 H APTT 38.8 H Heparin Anti-Xa Level POC ABG pH POC ABG pCO2 POC ABG pO2 Sodium Potassium Chloride Carbon Dioxide BUN Creatinine Glucose POC Glucose 179 H 153 H Calcium Phosphorus Magnesium AST C-Reactive Protein Total Protein Albumin Lipase Vitamin B12 TSH Urine WBC (Auto) Urine Chloride Urine Total Protein Crossmatch 10/17/16 10/18/16 10/18/16 22:54 04:37 05:39 WBC RBC Hgb Hct MCV RDW Plt Count Lymph % (Auto) [place] % (Auto) [place] # Seg Neutrophils % Seg Neuts % (Manual) Lymphocytes % (Manual) Monocytes % (Manual) Seg Neutrophils # Seg Neutrophils # Man Lymphocytes # (Manual) Monocytes # (Manual) Eosinophils # (Manual) Basophils # (Manual) PT INR APTT Heparin Anti-Xa Level 0.27 L POC ABG pH 7.454 H POC ABG pCO2 30.8 L POC ABG pO2 115 H Sodium Potassium Chloride Carbon Dioxide BUN Creatinine Glucose POC Glucose 69 L Calcium Phosphorus Magnesium AST C-Reactive Protein Total Protein Albumin Lipase Vitamin B12 TSH Urine WBC (Auto) Urine Chloride Urine Total Protein Crossmatch 10/18/16 10/18/16 10/18/16 06:46 06:46 06:46 WBC 20.5 H RBC 2.62 L Hgb 8.4 L Hct 26.0 L MCV 100 H RDW Plt Count Lymph % (Auto) [place] % (Auto) [place] # Seg Neutrophils % Seg Neuts % (Manual) 75.0 H Lymphocytes % (Manual) 9.0 L Monocytes % (Manual) 14.0 H Seg Neutrophils # Seg Neutrophils # Man 15.4 H Lymphocytes # (Manual) Monocytes # (Manual) 2.9 H Eosinophils # (Manual) Basophils # (Manual) PT INR APTT Heparin Anti-Xa Level POC ABG pH POC ABG pCO2 POC ABG pO2 Sodium Potassium Chloride 110.6 H Carbon Dioxide BUN Creatinine 1.3 H Glucose 153 H POC Glucose Calcium 8.0 L Phosphorus Magnesium 1.6 L AST C-Reactive Protein Total Protein Albumin Lipase Vitamin B12 TSH Urine WBC (Auto) Urine Chloride Urine Total Protein Crossmatch 10/18/16 10/18/16 10/18/16 07:30 11:37 17:51 WBC RBC Hgb Hct MCV RDW Plt Count Lymph % (Auto) [place] % (Auto) [place] # Seg Neutrophils % Seg Neuts % (Manual) Lymphocytes % (Manual) Monocytes % (Manual) Seg Neutrophils # Seg Neutrophils # Man Lymphocytes # (Manual) Monocytes # (Manual) Eosinophils # (Manual) Basophils # (Manual) PT INR APTT Heparin Anti-Xa Level POC ABG pH POC ABG pCO2 POC ABG pO2 Sodium Potassium Chloride Carbon Dioxide BUN Creatinine Glucose POC Glucose 162 H 156 H 164 H Calcium Phosphorus Magnesium AST C-Reactive Protein Total Protein Albumin Lipase Vitamin B12 TSH Urine WBC (Auto) Urine Chloride Urine Total Protein Crossmatch 10/18/16 10/19/16 10/19/16 23:44 03:59 05:13 WBC 18.2 H RBC 2.76 L Hgb 9.0 L Hct 27.7 L MCV 100 H RDW Plt Count Lymph % (Auto) [place] % (Auto) [place] # Seg Neutrophils % Seg Neuts % (Manual) 76.0 H Lymphocytes % (Manual) 10.0 L Monocytes % (Manual) Seg Neutrophils # Seg Neutrophils # Man 13.8 H Lymphocytes # (Manual) Monocytes # (Manual) Eosinophils # (Manual) Basophils # (Manual) PT INR APTT Heparin Anti-Xa Level POC ABG pH POC ABG pCO2 32.2 L POC ABG pO2 128 H Sodium Potassium Chloride Carbon Dioxide BUN Creatinine Glucose POC Glucose 278 H Calcium Phosphorus Magnesium AST C-Reactive Protein Total Protein Albumin Lipase Vitamin B12 TSH Urine WBC (Auto) Urine Chloride Urine Total Protein Crossmatch 10/19/16 10/19/16 10/19/16 06:01 06:30 12:20 WBC RBC Hgb Hct MCV RDW Plt Count Lymph % (Auto) [place] % (Auto) [place] # Seg Neutrophils % Seg Neuts % (Manual) Lymphocytes % (Manual) Monocytes % (Manual) Seg Neutrophils # Seg Neutrophils # Man Lymphocytes # (Manual) Monocytes # (Manual) Eosinophils # (Manual) Basophils # (Manual) PT INR APTT Heparin Anti-Xa Level POC ABG pH POC ABG pCO2 POC ABG pO2 Sodium Potassium Chloride Carbon Dioxide 18 L BUN Creatinine 1.3 H Glucose 262 H POC Glucose 261 H 349 H Calcium 7.7 L Phosphorus 4.8 H D Magnesium AST C-Reactive Protein Total Protein Albumin Lipase Vitamin B12 TSH Urine WBC (Auto) Urine Chloride Urine Total Protein Crossmatch 10/19/16 10/20/16 10/20/16 16:48 00:17 05:20 WBC 22.5 H RBC 2.80 L Hgb 8.9 L Hct 28.3 L MCV 101 H RDW Plt Count Lymph % (Auto) [place] % (Auto) [place] # Seg Neutrophils % Seg Neuts % (Manual) Lymphocytes % (Manual) 10.0 L Monocytes % (Manual) Seg Neutrophils # Seg Neutrophils # Man 13.3 H Lymphocytes # (Manual) Monocytes # (Manual) 1.1 H Eosinophils # (Manual) 0.7 H Basophils # (Manual) PT INR APTT Heparin Anti-Xa Level POC ABG pH POC ABG pCO2 POC ABG pO2 Sodium Potassium Chloride Carbon Dioxide BUN Creatinine Glucose POC Glucose 248 H 346 H Calcium Phosphorus Magnesium AST C-Reactive Protein Total Protein Albumin Lipase Vitamin B12 TSH Urine WBC (Auto) Urine Chloride Urine Total Protein Crossmatch 10/20/16 10/20/16 10/20/16 05:20 05:20 06:05 WBC RBC Hgb Hct MCV RDW Plt Count Lymph % (Auto) [place] % (Auto) [place] # Seg Neutrophils % Seg Neuts % (Manual) Lymphocytes % (Manual) Monocytes % (Manual) Seg Neutrophils # Seg Neutrophils # Man Lymphocytes # (Manual) Monocytes # (Manual) Eosinophils # (Manual) Basophils # (Manual) PT INR APTT Heparin Anti-Xa Level 0.20 L POC ABG pH POC ABG pCO2 POC ABG pO2 Sodium Potassium Chloride Carbon Dioxide BUN 20 H Creatinine Glucose 374 H POC Glucose 337 H Calcium 8.3 L Phosphorus Magnesium AST C-Reactive Protein Total Protein Albumin Lipase Vitamin B12 TSH Urine WBC (Auto) Urine Chloride Urine Total Protein Crossmatch 10/20/16 10/20/16 10/20/16 11:49 13:59 17:56 WBC RBC Hgb Hct MCV RDW Plt Count Lymph % (Auto) [place] % (Auto) [place] # Seg Neutrophils % Seg Neuts % (Manual) Lymphocytes % (Manual) Monocytes % (Manual) Seg Neutrophils # Seg Neutrophils # Man Lymphocytes # (Manual) Monocytes # (Manual) Eosinophils # (Manual) Basophils # (Manual) PT INR APTT Heparin Anti-Xa Level 2.00 H POC ABG pH POC ABG pCO2 POC ABG pO2 Sodium Potassium Chloride Carbon Dioxide BUN Creatinine Glucose POC Glucose 305 H 362 H Calcium Phosphorus Magnesium AST C-Reactive Protein Total Protein Albumin Lipase Vitamin B12 TSH Urine WBC (Auto) Urine Chloride Urine Total Protein Crossmatch 10/20/16 10/21/16 10/21/16 23:52 05:00 05:49 WBC 22.9 H RBC 2.49 L Hgb 7.7 L Hct 25.6 L MCV 103 H RDW Plt Count Lymph % (Auto) [place] % (Auto) [place] # Seg Neutrophils % Seg Neuts % (Manual) 94.0 H Lymphocytes % (Manual) 1.0 L Monocytes % (Manual) Seg Neutrophils # Seg Neutrophils # Man 21.5 H Lymphocytes # (Manual) 0.2 L Monocytes # (Manual) 1.1 H Eosinophils # (Manual) Basophils # (Manual) PT INR APTT Heparin Anti-Xa Level POC ABG pH POC ABG pCO2 POC ABG pO2 Sodium Potassium Chloride Carbon Dioxide BUN Creatinine Glucose POC Glucose 252 H 180 H Calcium Phosphorus Magnesium AST C-Reactive Protein Total Protein Albumin Lipase Vitamin B12 TSH Urine WBC (Auto) Urine Chloride Urine Total Protein Crossmatch 10/21/16 10/21/16 10/21/16 11:47 11:49 14:10 WBC RBC Hgb Hct MCV RDW Plt Count Lymph % (Auto) [place] % (Auto) [place] # Seg Neutrophils % Seg Neuts % (Manual) Lymphocytes % (Manual) Monocytes % (Manual) Seg Neutrophils # Seg Neutrophils # Man Lymphocytes # (Manual) Monocytes # (Manual) Eosinophils # (Manual) Basophils # (Manual) PT INR APTT Heparin Anti-Xa Level POC ABG pH POC ABG pCO2 POC ABG pO2 Sodium Potassium Chloride Carbon Dioxide BUN Creatinine Glucose POC Glucose 50 L 56 L 140 H Calcium Phosphorus Magnesium AST C-Reactive Protein Total Protein Albumin Lipase Vitamin B12 TSH Urine WBC (Auto) Urine Chloride Urine Total Protein Crossmatch 10/21/16 10/21/16 10/22/16 18:24 Unknown 00:07 WBC RBC Hgb Hct MCV RDW Plt Count Lymph % (Auto) [place] % (Auto) [place] # Seg Neutrophils % Seg Neuts % (Manual) Lymphocytes % (Manual) Monocytes % (Manual) Seg Neutrophils # Seg Neutrophils # Man Lymphocytes # (Manual) Monocytes # (Manual) Eosinophils # (Manual) Basophils # (Manual) PT INR APTT Heparin Anti-Xa Level POC ABG pH POC ABG pCO2 POC ABG pO2 Sodium 150 H Potassium 3.1 L Chloride 112.4 H Carbon Dioxide BUN 25 H Creatinine 1.4 H Glucose POC Glucose 175 H 218 H Calcium 8.0 L Phosphorus Magnesium AST C-Reactive Protein Total Protein Albumin Lipase Vitamin B12 TSH Urine WBC (Auto) Urine Chloride Urine Total Protein Crossmatch 10/22/16 10/22/16 10/22/16 04:20 04:20 10:25 WBC 20.8 H RBC 2.37 L Hgb 7.5 L Hct 23.9 L MCV 101 H RDW Plt Count Lymph % (Auto) [place] % (Auto) [place] # Seg Neutrophils % Seg Neuts % (Manual) 89.0 H Lymphocytes % (Manual) 7.0 L Monocytes % (Manual) Seg Neutrophils # Seg Neutrophils # Man 18.5 H Lymphocytes # (Manual) Monocytes # (Manual) Eosinophils # (Manual) Basophils # (Manual) 0.2 H PT INR APTT Heparin Anti-Xa Level POC ABG pH POC ABG pCO2 POC ABG pO2 Sodium 148 H Potassium 2.9 L* Chloride 109.4 H Carbon Dioxide BUN 26 H Creatinine Glucose 140 H POC Glucose Calcium 7.5 L Phosphorus Magnesium AST C-Reactive Protein Total Protein Albumin Lipase Vitamin B12 976.8 H TSH Urine WBC (Auto) Urine Chloride Urine Total Protein Crossmatch 10/22/16 10/22/16 10/22/16 10:25 14:50 18:16 WBC RBC Hgb Hct MCV RDW Plt Count Lymph % (Auto) [place] % (Auto) [place] # Seg Neutrophils % Seg Neuts % (Manual) Lymphocytes % (Manual) Monocytes % (Manual) Seg Neutrophils # Seg Neutrophils # Man Lymphocytes # (Manual) Monocytes # (Manual) Eosinophils # (Manual) Basophils # (Manual) PT INR APTT Heparin Anti-Xa Level POC ABG pH POC ABG pCO2 POC ABG pO2 Sodium Potassium Chloride Carbon Dioxide BUN Creatinine Glucose POC Glucose 193 H Calcium Phosphorus Magnesium AST C-Reactive Protein Total Protein Albumin Lipase Vitamin B12 TSH 0.143 L 0.162 L Urine WBC (Auto) Urine Chloride Urine Total Protein Crossmatch 10/22/16 10/22/16 10/22/16 20:00 20:00 20:00 WBC 24.1 H RBC 2.58 L Hgb 8.2 L Hct 26.4 L MCV 102 H RDW Plt Count Lymph % (Auto) [place] % (Auto) [place] # Seg Neutrophils % Seg Neuts % (Manual) 74.0 H Lymphocytes % (Manual) 7.0 L Monocytes % (Manual) Seg Neutrophils # Seg Neutrophils # Man 17.8 H Lymphocytes # (Manual) Monocytes # (Manual) Eosinophils # (Manual) Basophils # (Manual) PT INR APTT Heparin Anti-Xa Level 1.92 H POC ABG pH POC ABG pCO2 POC ABG pO2 Sodium Potassium Chloride Carbon Dioxide BUN Creatinine Glucose POC Glucose Calcium Phosphorus Magnesium AST C-Reactive Protein Total Protein Albumin Lipase Vitamin B12 TSH Urine WBC (Auto) Urine Chloride Urine Total Protein Crossmatch See Detail 10/23/16 10/23/16 10/23/16 00:21 06:09 12:07 WBC RBC Hgb Hct MCV RDW Plt Count Lymph % (Auto) [place] % (Auto) [place] # Seg Neutrophils % Seg Neuts % (Manual) Lymphocytes % (Manual) Monocytes % (Manual) Seg Neutrophils # Seg Neutrophils # Man Lymphocytes # (Manual) Monocytes # (Manual) Eosinophils # (Manual) Basophils # (Manual) PT INR APTT Heparin Anti-Xa Level POC ABG pH POC ABG pCO2 POC ABG pO2 Sodium Potassium Chloride Carbon Dioxide BUN Creatinine Glucose POC Glucose 283 H 241 H 340 H Calcium Phosphorus Magnesium AST C-Reactive Protein Total Protein Albumin Lipase Vitamin B12 TSH Urine WBC (Auto) Urine Chloride Urine Total Protein Crossmatch 10/23/16 10/23/16 10/23/16 14:01 16:00 17:59 WBC RBC Hgb Hct MCV RDW Plt Count Lymph % (Auto) [place] % (Auto) [place] # Seg Neutrophils % Seg Neuts % (Manual) Lymphocytes % (Manual) Monocytes % (Manual) Seg Neutrophils # Seg Neutrophils # Man Lymphocytes # (Manual) Monocytes # (Manual) Eosinophils # (Manual) Basophils # (Manual) PT INR APTT Heparin Anti-Xa Level 0.19 L POC ABG pH POC ABG pCO2 32.4 L POC ABG pO2 Sodium Potassium Chloride Carbon Dioxide BUN Creatinine Glucose POC Glucose 245 H Calcium Phosphorus Magnesium AST C-Reactive Protein Total Protein Albumin Lipase Vitamin B12 TSH Urine WBC (Auto) Urine Chloride Urine Total Protein Crossmatch 10/23/16 10/23/16 10/23/16 22:55 Unknown Unknown WBC 22.6 H RBC 3.26 L Hgb Hct MCV RDW 17.1 H Plt Count Lymph % (Auto) [place] % (Auto) [place] # Seg Neutrophils % Seg Neuts % (Manual) Lymphocytes % (Manual) 11.0 L Monocytes % (Manual) Seg Neutrophils # Seg Neutrophils # Man 14.0 H Lymphocytes # (Manual) Monocytes # (Manual) Eosinophils # (Manual) Basophils # (Manual) PT INR APTT Heparin Anti-Xa Level 0.17 L 0.15 L POC ABG pH POC ABG pCO2 POC ABG pO2 Sodium Potassium Chloride Carbon Dioxide BUN Creatinine Glucose POC Glucose Calcium Phosphorus Magnesium AST C-Reactive Protein Total Protein Albumin Lipase Vitamin B12 TSH Urine WBC (Auto) Urine Chloride Urine Total Protein Crossmatch 10/23/16 10/24/16 10/24/16 Unknown 00:05 05:30 WBC RBC Hgb Hct MCV RDW Plt Count Lymph % (Auto) [place] % (Auto) [place] # Seg Neutrophils % Seg Neuts % (Manual) Lymphocytes % (Manual) Monocytes % (Manual) Seg Neutrophils # Seg Neutrophils # Man Lymphocytes # (Manual) Monocytes # (Manual) Eosinophils # (Manual) Basophils # (Manual) PT INR APTT Heparin Anti-Xa Level 0.13 L POC ABG pH POC ABG pCO2 POC ABG pO2 Sodium Potassium Chloride 111.2 H Carbon Dioxide 20 L BUN 25 H Creatinine Glucose 227 H POC Glucose 118 H Calcium 7.1 L Phosphorus Magnesium AST C-Reactive Protein Total Protein Albumin Lipase Vitamin B12 TSH Urine WBC (Auto) Urine Chloride Urine Total Protein Crossmatch 10/24/16 10/24/16 10/24/16 11:00 11:00 12:06 WBC 17.6 H RBC 2.92 L Hgb 9.2 L Hct 28.3 L MCV RDW 16.9 H Plt Count Lymph % (Auto) [place] % (Auto) [place] # Seg Neutrophils % Seg Neuts % (Manual) Lymphocytes % (Manual) Monocytes % (Manual) Seg Neutrophils # Seg Neutrophils # Man Lymphocytes # (Manual) Monocytes # (Manual) Eosinophils # (Manual) Basophils # (Manual) PT INR APTT Heparin Anti-Xa Level 0.27 L POC ABG pH POC ABG pCO2 POC ABG pO2 Sodium Potassium Chloride Carbon Dioxide BUN Creatinine Glucose POC Glucose 166 H Calcium Phosphorus Magnesium AST C-Reactive Protein Total Protein Albumin Lipase Vitamin B12 TSH Urine WBC (Auto) Urine Chloride Urine Total Protein Crossmatch 10/24/16 10/25/16 10/25/16 12:27 00:49 03:30 WBC RBC Hgb 8.8 L Hct 28.1 L MCV RDW Plt Count Lymph % (Auto) [place] % (Auto) [place] # Seg Neutrophils % Seg Neuts % (Manual) Lymphocytes % (Manual) Monocytes % (Manual) Seg Neutrophils # Seg Neutrophils # Man Lymphocytes # (Manual) Monocytes # (Manual) Eosinophils # (Manual) Basophils # (Manual) PT INR APTT Heparin Anti-Xa Level POC ABG pH POC ABG pCO2 33.9 L POC ABG pO2 Sodium Potassium Chloride Carbon Dioxide BUN Creatinine Glucose POC Glucose 121 H Calcium Phosphorus Magnesium AST C-Reactive Protein Total Protein Albumin Lipase Vitamin B12 TSH Urine WBC (Auto) Urine Chloride Urine Total Protein Crossmatch 10/25/16 10/25/16 10/25/16 09:49 12:10 19:25 WBC 21.1 H RBC 3.02 L Hgb 9.3 L Hct 28.9 L MCV RDW 16.3 H Plt Count Lymph % (Auto) [place] % (Auto) [place] # Seg Neutrophils % Seg Neuts % (Manual) 81.0 H Lymphocytes % (Manual) 9.0 L Monocytes % (Manual) Seg Neutrophils # Seg Neutrophils # Man 17.1 H Lymphocytes # (Manual) Monocytes # (Manual) Eosinophils # (Manual) Basophils # (Manual) PT INR APTT Heparin Anti-Xa Level POC ABG pH POC ABG pCO2 POC ABG pO2 Sodium Potassium Chloride Carbon Dioxide BUN Creatinine Glucose POC Glucose 158 H 151 H Calcium Phosphorus Magnesium AST C-Reactive Protein Total Protein Albumin Lipase Vitamin B12 TSH Urine WBC (Auto) Urine Chloride Urine Total Protein Crossmatch 10/26/16 10/26/16 10/26/16 00:20 01:09 05:02 WBC 22.2 H RBC 2.89 L Hgb 8.7 L Hct 27.8 L MCV RDW 16.4 H Plt Count Lymph % (Auto) [place] % (Auto) [place] # Seg Neutrophils % Seg Neuts % (Manual) Lymphocytes % (Manual) Monocytes % (Manual) Seg Neutrophils # Seg Neutrophils # Man Lymphocytes # (Manual) Monocytes # (Manual) Eosinophils # (Manual) Basophils # (Manual) PT INR APTT Heparin Anti-Xa Level POC ABG pH POC ABG pCO2 POC ABG pO2 Sodium Potassium Chloride Carbon Dioxide BUN Creatinine Glucose POC Glucose 44 L 112 H Calcium Phosphorus Magnesium AST C-Reactive Protein Total Protein Albumin Lipase Vitamin B12 TSH Urine WBC (Auto) Urine Chloride Urine Total Protein Crossmatch 10/26/16 10/26/16 10/26/16 05:02 12:11 12:14 WBC RBC Hgb Hct MCV RDW Plt Count Lymph % (Auto) [place] % (Auto) [place] # Seg Neutrophils % Seg Neuts % (Manual) Lymphocytes % (Manual) Monocytes % (Manual) Seg Neutrophils # Seg Neutrophils # Man Lymphocytes # (Manual) Monocytes # (Manual) Eosinophils # (Manual) Basophils # (Manual) PT INR APTT Heparin Anti-Xa Level POC ABG pH POC ABG pCO2 32.0 L POC ABG pO2 33 L Sodium Potassium 3.2 L D Chloride Carbon Dioxide 20 L BUN 24 H Creatinine Glucose 104 H POC Glucose 194 H Calcium 7.7 L Phosphorus Magnesium AST C-Reactive Protein Total Protein Albumin Lipase Vitamin B12 TSH Urine WBC (Auto) Urine Chloride Urine Total Protein Crossmatch 10/26/16 10/26/16 10/27/16 15:28 17:23 00:04 WBC RBC Hgb Hct MCV RDW Plt Count Lymph % (Auto) [place] % (Auto) [place] # Seg Neutrophils % Seg Neuts % (Manual) Lymphocytes % (Manual) Monocytes % (Manual) Seg Neutrophils # Seg Neutrophils # Man Lymphocytes # (Manual) Monocytes # (Manual) Eosinophils # (Manual) Basophils # (Manual) PT INR APTT Heparin Anti-Xa Level POC ABG pH POC ABG pCO2 33.7 L POC ABG pO2 Sodium Potassium Chloride Carbon Dioxide BUN Creatinine Glucose POC Glucose 181 H 230 H Calcium Phosphorus Magnesium AST C-Reactive Protein Total Protein Albumin Lipase Vitamin B12 TSH Urine WBC (Auto) Urine Chloride Urine Total Protein Crossmatch 10/27/16 10/27/16 10/27/16 05:15 05:15 05:38 WBC 25.5 H RBC 3.07 L Hgb 9.4 L Hct 30.1 L MCV 98 H RDW 16.4 H Plt Count 527 H Lymph % (Auto) [place] % (Auto) [place] # Seg Neutrophils % Seg Neuts % (Manual) Lymphocytes % (Manual) Monocytes % (Manual) Seg Neutrophils # Seg Neutrophils # Man Lymphocytes # (Manual) Monocytes # (Manual) Eosinophils # (Manual) Basophils # (Manual) PT INR APTT Heparin Anti-Xa Level POC ABG pH POC ABG pCO2 POC ABG pO2 Sodium Potassium Chloride Carbon Dioxide 19 L BUN 23 H Creatinine Glucose 160 H POC Glucose 168 H Calcium 8.0 L Phosphorus Magnesium AST C-Reactive Protein Total Protein Albumin Lipase Vitamin B12 TSH Urine WBC (Auto) Urine Chloride Urine Total Protein Crossmatch 10/27/16 10/27/16 10/27/16 11:59 18:35 23:48 WBC RBC Hgb Hct MCV RDW Plt Count Lymph % (Auto) [place] % (Auto) [place] # Seg Neutrophils % Seg Neuts % (Manual) Lymphocytes % (Manual) Monocytes % (Manual) Seg Neutrophils # Seg Neutrophils # Man Lymphocytes # (Manual) Monocytes # (Manual) Eosinophils # (Manual) Basophils # (Manual) PT INR APTT Heparin Anti-Xa Level POC ABG pH POC ABG pCO2 POC ABG pO2 Sodium Potassium Chloride Carbon Dioxide BUN Creatinine Glucose POC Glucose 197 H 318 H 316 H Calcium Phosphorus Magnesium AST C-Reactive Protein Total Protein Albumin Lipase Vitamin B12 TSH Urine WBC (Auto) Urine Chloride Urine Total Protein Crossmatch 10/28/16 10/28/16 10/28/16 03:13 04:10 04:10 WBC 18.8 H RBC 2.64 L Hgb 8.1 L Hct 26.1 L MCV 99 H RDW 16.2 H Plt Count 544 H Lymph % (Auto) [place] % (Auto) [place] # Seg Neutrophils % Seg Neuts % (Manual) Lymphocytes % (Manual) Monocytes % (Manual) Seg Neutrophils # Seg Neutrophils # Man Lymphocytes # (Manual) Monocytes # (Manual) Eosinophils # (Manual) Basophils # (Manual) PT INR APTT Heparin Anti-Xa Level POC ABG pH POC ABG pCO2 POC ABG pO2 Sodium Potassium Chloride Carbon Dioxide 21 L BUN 24 H Creatinine Glucose 302 H POC Glucose 304 H Calcium 7.7 L Phosphorus Magnesium AST C-Reactive Protein Total Protein Albumin Lipase Vitamin B12 TSH Urine WBC (Auto) Urine Chloride Urine Total Protein Crossmatch 10/28/16 10/28/16 10/28/16 04:10 12:36 18:27 WBC RBC Hgb Hct MCV RDW Plt Count Lymph % (Auto) [place] % (Auto) [place] # Seg Neutrophils % Seg Neuts % (Manual) Lymphocytes % (Manual) Monocytes % (Manual) Seg Neutrophils # Seg Neutrophils # Man Lymphocytes # (Manual) Monocytes # (Manual) Eosinophils # (Manual) Basophils # (Manual) PT INR APTT Heparin Anti-Xa Level 0.20 L POC ABG pH POC ABG pCO2 POC ABG pO2 Sodium Potassium Chloride Carbon Dioxide BUN Creatinine Glucose POC Glucose 205 H 339 H Calcium Phosphorus Magnesium AST C-Reactive Protein Total Protein Albumin Lipase Vitamin B12 TSH Urine WBC (Auto) Urine Chloride Urine Total Protein Crossmatch 10/29/16 10/29/16 10/29/16 01:05 06:19 09:30 WBC 20.3 H RBC 2.80 L Hgb 8.5 L Hct 26.7 L MCV RDW 15.4 H Plt Count 571 H Lymph % (Auto) [place] % (Auto) [place] # Seg Neutrophils % Seg Neuts % (Manual) 75.0 H Lymphocytes % (Manual) 4.0 L Monocytes % (Manual) Seg Neutrophils # Seg Neutrophils # Man 15.2 H Lymphocytes # (Manual) 0.8 L Monocytes # (Manual) Eosinophils # (Manual) Basophils # (Manual) PT INR APTT Heparin Anti-Xa Level POC ABG pH POC ABG pCO2 POC ABG pO2 Sodium Potassium Chloride Carbon Dioxide BUN Creatinine Glucose POC Glucose 275 H 179 H Calcium Phosphorus Magnesium AST C-Reactive Protein Total Protein Albumin Lipase Vitamin B12 TSH Urine WBC (Auto) Urine Chloride Urine Total Protein Crossmatch 10/29/16 10/29/16 10/29/16 11:46 15:18 17:55 WBC RBC Hgb Hct MCV RDW Plt Count Lymph % (Auto) [place] % (Auto) [place] # Seg Neutrophils % Seg Neuts % (Manual) Lymphocytes % (Manual) Monocytes % (Manual) Seg Neutrophils # Seg Neutrophils # Man Lymphocytes # (Manual) Monocytes # (Manual) Eosinophils # (Manual) Basophils # (Manual) PT INR APTT Heparin Anti-Xa Level 1.15 H POC ABG pH POC ABG pCO2 POC ABG pO2 Sodium Potassium Chloride Carbon Dioxide BUN Creatinine Glucose POC Glucose 122 H 255 H Calcium Phosphorus Magnesium AST C-Reactive Protein Total Protein Albumin Lipase Vitamin B12 TSH Urine WBC (Auto) Urine Chloride Urine Total Protein Crossmatch 10/30/16 10/30/16 10/30/16 00:10 05:30 05:30 WBC 19.8 H RBC 2.51 L Hgb 7.7 L Hct 24.1 L MCV RDW 15.5 H Plt Count 534 H Lymph % (Auto) [place] % (Auto) [place] # Seg Neutrophils % Seg Neuts % (Manual) Lymphocytes % (Manual) Monocytes % (Manual) Seg Neutrophils # Seg Neutrophils # Man Lymphocytes # (Manual) Monocytes # (Manual) Eosinophils # (Manual) Basophils # (Manual) PT INR APTT Heparin Anti-Xa Level POC ABG pH POC ABG pCO2 POC ABG pO2 Sodium Potassium Chloride Carbon Dioxide BUN Creatinine Glucose 211 H POC Glucose 202 H Calcium 7.4 L Phosphorus Magnesium AST C-Reactive Protein Total Protein Albumin Lipase Vitamin B12 TSH Urine WBC (Auto) Urine Chloride Urine Total Protein Crossmatch 10/30/16 06:32 WBC RBC Hgb Hct MCV RDW Plt Count Lymph % (Auto) [place] % (Auto) [place] # Seg Neutrophils % Seg Neuts % (Manual) Lymphocytes % (Manual) Monocytes % (Manual) Seg Neutrophils # Seg Neutrophils # Man Lymphocytes # (Manual) Monocytes # (Manual) Eosinophils # (Manual) Basophils # (Manual) PT INR APTT Heparin Anti-Xa Level POC ABG pH POC ABG pCO2 POC ABG pO2 Sodium Potassium Chloride Carbon Dioxide BUN Creatinine Glucose POC Glucose 207 H Calcium Phosphorus Magnesium AST C-Reactive Protein Total Protein Albumin Lipase Vitamin B12 TSH Urine WBC (Auto) Urine Chloride Urine Total Protein Crossmatch Allied health notes reviewed: RT
--- NOTE | 2016-10-30 12:20 | Progress Note ---
Assessment and Plan A/P: 1. I spoke with the patient's daughter and they have given consent to move forward with the tracheostomy and PEG tube. The procedure and the risks and benefits were explained and ample time was given for questions. We will go ahead and schedule the procedure and the next available time. The heparin drip will have to be held before the procedure. Subjective Date of service: 10/30/16 Objective Vital Signs - 12hr 10/30/16 10/30/16 10/30/16 00:18 01:00 01:30 Temperature Pulse Rate 112 H 134 H 111 H Pulse Rate [ Apical] Respiratory 20 18 Rate Blood Pressure 115/68 159/89 127/76 O2 Sat by Pulse 98 98 99 Oximetry 10/30/16 10/30/16 10/30/16 01:45 02:00 02:15 Temperature Pulse Rate 110 H 109 H 107 H Pulse Rate [ Apical] Respiratory 18 18 18 Rate Blood Pressure 132/76 134/77 132/78 O2 Sat by Pulse 98 98 98 Oximetry 10/30/16 10/30/16 10/30/16 02:30 02:45 03:00 Temperature Pulse Rate 107 H 106 H 104 H Pulse Rate [ Apical] Respiratory 18 18 18 Rate Blood Pressure 135/81 141/83 145/83 O2 Sat by Pulse 98 98 97 Oximetry 10/30/16 10/30/16 10/30/16 03:15 03:30 03:46 Temperature Pulse Rate 120 H 145 H 115 H Pulse Rate [ Apical] Respiratory 16 18 14 Rate Blood Pressure 148/89 144/79 114/66 O2 Sat by Pulse 97 98 98 Oximetry 10/30/16 10/30/16 10/30/16 04:00 04:15 04:30 Temperature 98.3 F Pulse Rate 109 H 109 H 106 H Pulse Rate [ 108 H Apical] Respiratory 18 18 15 Rate Blood Pressure 119/67 108/64 109/63 O2 Sat by Pulse 100 Oximetry 10/30/16 10/30/16 10/30/16 04:45 04:57 05:00 Temperature Pulse Rate 104 H 105 H 103 H Pulse Rate [ Apical] Respiratory 8 L 18 Rate Blood Pressure 112/65 114/66 O2 Sat by Pulse 99 Oximetry 10/30/16 10/30/16 10/30/16 05:15 05:30 05:45 Temperature Pulse Rate 103 H 102 H 71 Pulse Rate [ Apical] Respiratory 18 18 18 Rate Blood Pressure 118/73 120/73 112/56 O2 Sat by Pulse 99 Oximetry 10/30/16 10/30/16 10/30/16 06:00 06:15 06:30 Temperature Pulse Rate 71 70 70 Pulse Rate [ Apical] Respiratory 18 18 18 Rate Blood Pressure 99/58 100/54 98/54 O2 Sat by Pulse 99 98 100 Oximetry 10/30/16 10/30/16 10/30/16 06:45 07:00 07:15 Temperature Pulse Rate 70 70 70 Pulse Rate [ Apical] Respiratory 18 18 18 Rate Blood Pressure 95/56 98/54 103/57 O2 Sat by Pulse 100 100 100 Oximetry 10/30/16 10/30/16 10/30/16 07:30 07:45 07:54 Temperature Pulse Rate 69 69 70 Pulse Rate [ Apical] Respiratory 18 18 Rate Blood Pressure 98/55 98/54 98/54 O2 Sat by Pulse 100 100 Oximetry 10/30/16 10/30/16 10/30/16 08:00 08:15 08:30 Temperature 99.6 F Pulse Rate 69 72 71 Pulse Rate [ Apical] Respiratory 18 18 18 Rate Blood Pressure 93/55 93/53 94/53 O2 Sat by Pulse 100 Oximetry 10/30/16 10/30/16 10/30/16 08:40 08:45 09:00 Temperature Pulse Rate 73 70 70 Pulse Rate [ Apical] Respiratory 18 18 Rate Blood Pressure 95/55 93/53 99/53 O2 Sat by Pulse 100 100 Oximetry 10/30/16 10/30/16 10/30/16 09:15 09:30 09:45 Temperature Pulse Rate 69 68 68 Pulse Rate [ Apical] Respiratory 18 18 17 Rate Blood Pressure 96/54 99/55 103/54 O2 Sat by Pulse 100 100 100 Oximetry 10/30/16 10/30/16 10/30/16 10:00 10:15 10:30 Temperature Pulse Rate 68 90 108 H Pulse Rate [ Apical] Respiratory 18 19 14 Rate Blood Pressure 103/56 121/81 121/81 O2 Sat by Pulse 100 100 99 Oximetry 10/30/16 10/30/16 10/30/16 10:46 11:00 11:15 Temperature Pulse Rate 98 H 87 80 Pulse Rate [ Apical] Respiratory 24 18 18 Rate Blood Pressure 118/76 128/68 115/61 O2 Sat by Pulse 100 100 Oximetry 03/14/17 03/14/17 11:30 11:45 Temperature Pulse Rate 76 87 Pulse Rate [ Apical] Respiratory 18 19 Rate Blood Pressure 110/60 131/71 O2 Sat by Pulse 100 100 Oximetry - Neck no masses, trachea midline - Abdomen soft (soft, mild distension) - Labs 10/30/16 05:30 10/30/16 05:30 Diabetes panel 10/30/16 Range/Units 05:30 Sodium 138 (137-145) mmol/L Potassium 3.7 (3.6-5.0) mmol/L Chloride 102.6 (98-107) mmol/L Carbon Dioxide 24 (22-30) mmol/L BUN 15 (7-17) mg/dL Creatinine 0.8 (0.7-1.2) mg/dL Glucose 211 H (65-100) mg/dL Calcium 7.4 L (8.4-10.2) mg/dL Calcium panel 10/30/16 Range/Units 05:30 Calcium 7.4 L (8.4-10.2) mg/dL Pituitary panel 10/30/16 Range/Units 05:30 Sodium 138 (137-145) mmol/L Potassium 3.7 (3.6-5.0) mmol/L Chloride 102.6 (98-107) mmol/L Carbon Dioxide 24 (22-30) mmol/L BUN 15 (7-17) mg/dL Creatinine 0.8 (0.7-1.2) mg/dL Glucose 211 H (65-100) mg/dL Calcium 7.4 L (8.4-10.2) mg/dL Adrenal panel 10/30/16 Range/Units 05:30 Sodium 138 (137-145) mmol/L Potassium 3.7 (3.6-5.0) mmol/L Chloride 102.6 (98-107) mmol/L Carbon Dioxide 24 (22-30) mmol/L BUN 15 (7-17) mg/dL Creatinine 0.8 (0.7-1.2) mg/dL Glucose 211 H (65-100) mg/dL Calcium 7.4 L (8.4-10.2) mg/dL
[2016-10-30] MEDS: CLEOCIN 600 MG/50 mL 600 MG/50 ML BAG IV SCH ×2 (14:04→21:55)
[2016-10-30] MEDS: REGLAN IV SCH ×2 (14:05→22:02)
--- NOTE | 2016-10-30 15:54 | Event Note ---
Date: 10/30/16 This patient her heart rate was in the 80s at bedside. She is for trach and PEG by general surgery. Following this procedure if condition continues to improve, we will plan on revascularization in hopes to salvage a right below the knee amputation (which will follow). This was discussed with the patient's at the bedside.
--- NOTE | 2016-10-30 16:31 | Progress Note ---
Assessment and Plan Assessment and plan: 66-year-old woman who presented with lethargy and altered mental status she deteriorated and was intubated and in emergency room, she was managed for DKA and she also developed sepsis due to UTI and right lower extremity ischemia 1. Acute respiratory failure with hypercapnia Continue ventilator, failed weaning trial. will plan for Trach and Peg-this has been discussed with the family by the surgeon. I also discussed with her today was at bedside. Did discuss with the patient's daughter Saurav on and she understands and will like us to proceed with PEG and trach of also discussed with nursing staff to inform the surgeon. Also discussed the surgeon so they are awaiting 2. Diabetes DKA has now resolved, insulin adjusted. Continue SubQ insulin 3. Sepsis- Leukocytosis ?reactive Suspected due to UTI, urine has only grown Paula, sputum cultures grew group B strep, continue broad-spectrum antibiotics, infectious disease input appreciated 4. 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 Family has been updated. We'll continue to attempt to see if below the knee can be done as salvaged. Vascular consult noted too ill for any surgical intervention, continue heparin drip 5. Hypokalemia replete IV-we'll also give magnesium to help improve this. 6. Toxic metabolic encephalopathy- improved. 7. LUCY- present on admissions. likely vasomotor . resolved 8. Tachycardia- continue BB will add cardizem, if no improvement will add cardiology consultation 9. Anemia-no gross evidence of GI bleed. Patient didn't have any material. Ultrasound of the renal done on October 13 was negative. We'll monitor closely. As patient is also on heparin drip. May require 1 unit packed red blood cell due to gradual trend down off hemoglobin we'll monitor and transfuse if less than 7 Given her multiple medical illnesses, her prognosis is quite poor Discussed with refrigeration engine operator. [facility] EVAL insurance precluded transfer. Critical care time 31 minutes History Interval history: Patient seen and examined, unable to wean from vent. More rested today on the vent. No further adverse events. Hospitalist Physical - Physical exam Narrative exam: VITAL SIGNS: Reviewed. GENERAL: The patient appeared well nourished and normally developed. Vital signs as documented. HEAD: No signs of head trauma. EYES: Pupils are equal. Extraocular motions intact. EARS: Hearing grossly intact. MOUTH: ETT NECK: No adenopathy, no JVD. CHEST: Chest with diminshed CARDIAC: Regular rate and rhythm. S1 and S2, without murmurs, gallops, or rubs. VASCULAR: trace Edema. Peripheral pulses not palpable at the right lower ext ABDOMEN: Soft, without detectable tenderness. No sign of distention. No rebound or guarding, and no masses palpated. Bowel Sounds normal. MUSCULOSKELETAL: Moves most joints except the right lower extremity ankle area. Extremities with cyanosis to right lower ext, right large toe. NEUROLOGIC EXAM: follows command. PSYCHIATRIC: unable to assess. SKIN: cold at the right lower ext from the knee down once - Constitutional Vitals: Temp Pulse Resp BP Pulse Ox 98.6 F 73 18 114/59 100 10/30/16 12:00 10/30/16 15:00 10/30/16 15:00 10/30/16 15:00 10/30/16 14:45 General appearance: Present: no acute distress Results - Labs CBC & Chem 7: 10/30/16 05:30 10/30/16 05:30 Labs: Laboratory Last Values WBC 19.8 K/mm3 (4.5-11.0) H 10/30/16 05:30 RBC 2.51 M/mm3 (3.65-5.03) L 10/30/16 05:30 Hgb 7.7 gm/dl (10.1-14.3) L 10/30/16 05:30 Hct 24.1 % (30.3-42.9) L 10/30/16 05:30 MCV 96 fl (79-97) 10/30/16 05:30 MCH 31 pg (28-32) 10/30/16 05:30 MCHC 32 % (30-34) 10/30/16 05:30 RDW 15.5 % (13.2-15.2) H 10/30/16 05:30 Plt Count 534 K/mm3 (140-440) H 10/30/16 05:30 Lymph % (Auto) Home Therapy Clinician 10/21/16 05:00 [place] % (Auto) Home Therapy Clinician 10/21/16 05:00 Eos % (Auto) Home Therapy Clinician 10/21/16 05:00 Baso % (Auto) Home Therapy Clinician 10/21/16 05:00 Lymph # Home Therapy Clinician 10/21/16 05:00 Coleman # Home Therapy Clinician 10/21/16 05:00 Eos # Home Therapy Clinician 10/21/16 05:00 Baso # Home Therapy Clinician 10/21/16 05:00 Add Manual Diff Complete 10/29/16 09:30 Total Counted 100 10/29/16 09:30 Seg Neutrophils % Home Therapy Clinician 10/21/16 05:00 Seg Neuts % (Manual) 75.0 % (40.0-70.0) H 10/29/16 09:30 Band Neutrophils % 14.0 % 10/29/16 09:30 Lymphocytes % (Manual) 4.0 % (13.4-35.0) L 10/29/16 09:30 Reactive Lymphs % (Man) 0 % 10/29/16 09:30 Monocytes % (Manual) 4.0 % (0.0-7.3) 10/29/16 09:30 Eosinophils % (Manual) 0 % (0.0-4.3) 10/29/16 09:30 Basophils % (Manual) 0 % (0.0-1.8) 10/29/16 09:30 Metamyelocytes % 1.0 % 10/29/16 09:30 Myelocytes % 2.0 % 10/29/16 09:30 Promyelocytes % 0 % 10/29/16 09:30 Blast Cells % 0 % 10/29/16 09:30 Nucleated RBC % Not Reportable 10/29/16 09:30 Seg Neutrophils # Home Therapy Clinician 10/21/16 05:00 Seg Neutrophils # Man 15.2 K/mm3 (1.8-7.7) H 10/29/16 09:30 Band Neutrophils # 2.8 K/mm3 10/29/16 09:30 Lymphocytes # (Manual) 0.8 K/mm3 (1.2-5.4) L 10/29/16 09:30 Abs React Lymphs (Man) 0.0 K/mm3 10/29/16 09:30 Monocytes # (Manual) 0.8 K/mm3 (0.0-0.8) 10/29/16 09:30 Eosinophils # (Manual) 0.0 K/mm3 (0.0-0.4) 10/29/16 09:30 Basophils # (Manual) 0.0 K/mm3 (0.0-0.1) 10/29/16 09:30 Metamyelocytes # 0.2 K/mm3 10/29/16 09:30 Myelocytes # 0.4 K/mm3 10/29/16 09:30 Promyelocytes # 0.0 K/mm3 10/29/16 09:30 Blast Cells # 0.0 K/mm3 10/29/16 09:30 Pathologist Review 10/29/16 09:30 WBC Morphology Not Reportable 10/29/16 09:30 Hypersegmented Neuts Not Reportable 10/29/16 09:30 Hyposegmented Neuts Not Reportable 10/29/16 09:30 Hypogranular Neuts Not Reportable 10/29/16 09:30 Hypersegmented Polys TNR 10/17/16 07:08 Smudge Cells Not Reportable 10/29/16 09:30 Toxic Granulation Not Reportable 10/29/16 09:30 Toxic Vacuolation Not Reportable 10/29/16 09:30 Dohle Bodies Not Reportable 10/29/16 09:30 Pelger-Huet Anomaly Not Reportable 10/29/16 09:30 Alka Rods Not Reportable 10/29/16 09:30 Platelet Estimate Appears increased 10/29/16 09:30 Clumped Platelets Not Reportable 10/29/16 09:30 Plt Clumps, EDTA Not Reportable 10/29/16 09:30 Large Platelets Few 10/29/16 09:30 Giant Platelets Few 10/29/16 09:30 Platelet Satelliting Not Reportable 10/29/16 09:30 Plt Morphology Comment Not Reportable 10/29/16 09:30 RBC Morphology Not Reportable 10/29/16 09:30 Dimorphic RBCs Not Reportable 10/29/16 09:30 Polychromasia 1+ 10/29/16 09:30 Hypochromasia Few 10/29/16 09:30 Poikilocytosis Not Reportable 10/29/16 09:30 Basophilic Stippling TNR 10/17/16 07:08 Anisocytosis Not Reportable 10/29/16 09:30 Microcytosis Not Reportable 10/29/16 09:30 Macrocytosis Not Reportable 10/29/16 09:30 Spherocytes Not Reportable 10/29/16 09:30 Pappenheimer Bodies Not Reportable 10/29/16 09:30 Sickle Cells Not Reportable 10/29/16 09:30 Target Cells Not Reportable 10/29/16 09:30 Tear Drop Cells Not Reportable 10/29/16 09:30 Ovalocytes Not Reportable 10/29/16 09:30 Stomatocytes Rare 10/22/16 04:20 Helmet Cells Not Reportable 10/29/16 09:30 Higgins-Moclips Bodies Not Reportable 10/29/16 09:30 [place] Rings Not Reportable 10/29/16 09:30 [place] Cells Not Reportable 10/29/16 09:30 Bite Cells Not Reportable 10/29/16 09:30 Crenated Cell Not Reportable 10/29/16 09:30 Elliptocytes Not Reportable 10/29/16 09:30 Acanthocytes (Spur) Not Reportable 10/29/16 09:30 Rouleaux Not Reportable 10/29/16 09:30 Hemoglobin C Crystals Not Reportable 10/29/16 09:30 Schistocytes Not Reportable 10/29/16 09:30 Malaria parasites Not Reportable 10/29/16 09:30 David Bodies Not Reportable 10/29/16 09:30 Hem Pathologist Commnt Sent to pathology 10/29/16 09:30 PT 16.4 Sec. (12.2-14.9) H 10/17/16 16:07 INR 1.33 (0.87-1.13) H 10/17/16 16:07 APTT 38.8 Sec. (24.2-36.6) H 10/17/16 16:07 Heparin Anti-Xa Level 0.46 U.I./ml (0.3-0.7) 10/30/16 01:55 POC ABG pH 7.398 (7.35-7.45) 10/26/16 15:28 POC ABG pCO2 33.7 (35-45) L 10/26/16 15:28 POC ABG pO2 99 (80-105) 10/26/16 15:28 POC ABG HCO3 20.8 10/26/16 15:28 POC ABG Total CO2 22 10/26/16 15:28 POC ABG O2 Sat 98 10/26/16 15:28 POC ABG Base Excess -4 10/26/16 15:28 VBG pH 7.020 (7.320-7.420) L* 10/13/16 04:22 FiO2 25 % 10/26/16 15:28 Sodium 138 mmol/L (137-145) 10/30/16 05:30 Potassium 3.7 mmol/L (3.6-5.0) 10/30/16 05:30 Chloride 102.6 mmol/L (98-107) 10/30/16 05:30 Carbon Dioxide 24 mmol/L (22-30) 10/30/16 05:30 Anion Gap 15 mmol/L 10/30/16 05:30 BUN 15 mg/dL (7-17) 10/30/16 05:30 Creatinine 0.8 mg/dL (0.7-1.2) 10/30/16 05:30 Estimated GFR > 60 ml/min 10/30/16 05:30 BUN/Creatinine Ratio 18.75 % 10/30/16 05:30 Glucose 211 mg/dL (65-100) H 10/30/16 05:30 POC Glucose 207 (70-105) H 10/30/16 06:32 Osmolality 332 Mosm/kg 10/14/16 07:03 Lactic Acid 1.8 mmol/L (0.7-2.0) 10/14/16 07:03 Calcium 7.4 mg/dL (8.4-10.2) L 10/30/16 05:30 Phosphorus 2.7 mg/dL (2.5-4.5) D 10/21/16 Unknown Magnesium 1.8 mg/dL (1.7-2.3) 10/26/16 09:03 Total Bilirubin 0.5 mg/dL (0.1-1.2) 10/15/16 04:40 AST 79 units/L (5-40) H 10/15/16 04:40 ALT 27 units/L (7-56) 10/15/16 04:40 Alkaline Phosphatase 80 units/L (35-129) 10/15/16 04:40 Ammonia 35.0 umol/L (25-60) 10/13/16 05:40 Total Creatine Kinase 107 units/L (30-135) 10/13/16 04:22 CK-MB (CK-2) 3.1 ng/mL (0.0-4.0) 10/13/16 04:22 CK-MB (CK-2) Rel Index 2.8 (0-4) 10/13/16 04:22 Troponin T < 0.010 ng/mL (0.00-0.029) 10/14/16 18:55 C-Reactive Protein 10.50 mg/dL (0.00-1.30) H 10/13/16 16:14 Total Protein 5.5 g/dL (6.3-8.2) L 10/15/16 04:40 Albumin 3.0 g/dL (3.9-5) L 10/15/16 04:40 Albumin/Globulin Ratio 1.2 % 10/15/16 04:40 Amylase 57 units/L (27-131) 10/26/16 20:00 Lipase 58 units/L (13-60) 10/26/16 20:00 Vitamin B12 976.8 pg/mL (211-911) H 10/22/16 10:25 TSH 0.162 mlU/mL (0.270-4.200) L 10/22/16 14:50 Free T4 0.77 ng/dL (0.76-1.46) 10/22/16 14:50 Urine Color Yellow (Yellow) 10/15/16 11:05 Urine Turbidity Cloudy (Clear) 10/15/16 11:05 Urine pH 5.0 (5.0-7.0) 10/15/16 11:05 Ur Specific [place] 1.009 (1.003-1.030) 10/15/16 11:05 Urine Protein 30 mg/dl mg/dL (Negative) 10/15/16 11:05 Urine Glucose (UA) 150 mg/dL (Negative) 10/15/16 11:05 Urine Ketones Neg mg/dL (Negative) 10/15/16 11:05 Urine Blood Lg (Negative) 10/15/16 11:05 Urine Nitrite Neg (Negative) 10/15/16 11:05 Urine Bilirubin Neg (Negative) 10/15/16 11:05 Urine Urobilinogen < 2.0 mg/dL (<2.0) 10/15/16 11:05 Ur Leukocyte Esterase Neg (Negative) 10/15/16 11:05 Urine WBC (Auto) 7.0 /HPF (0.0-6.0) H 10/15/16 11:05 Urine RBC (Auto) 7.0 /HPF (0.0-6.0) 10/15/16 11:05 U Epithel Cells (Auto) 1.0 /HPF (0-13.0) 10/15/16 11:05 Urine Mucus Few /HPF 10/15/16 11:05 Urine Yeast (Budding) 2+ /HPF 10/15/16 11:05 Urine Osmolality 487 Mosm/kg 10/13/16 Unknown Urine Creatinine < 4.2 mg/dL (0.1-20.0) 10/13/16 Unknown Protein/Creatinin Ratio 0.00 10/13/16 Unknown Urine Sodium 10 mEq/L 10/13/16 Unknown Urine Potassium 1.00 mEq/L 10/13/16 Unknown Urine Chloride 10.0 mEq/L (110-250) L 10/13/16 Unknown Urine Total Protein < 4 mg/dL (5-11.8) L 10/13/16 Unknown Vancomycin Trough 17.7 ug/mL (5.0-20.0) 10/22/16 10:25 Ketones 107.3 mg/dL (0.2-2.8) H 10/13/16 04:22 Blood Type A POSITIVE 10/22/16 20:00 Antibody Screen Negative 10/22/16 20:00 Crossmatch See Detail 10/22/16 20:00
--- NOTE | 2016-10-30 20:01 | Progress Note ---
Subjective Date of service: 10/30/16 Principal diagnosis: respiratory failure on mechanical ventilatory support, DKA Interval history: AWAKE. Afebrile. Vital signs - Temp 98.4 CHEST - GOOD AIR ENTRY CVS - S1S2 ABD - BS_ LABS See lab section. ASSESSMENT 1. Sepsis 2. dka 3. resp failure 4. htn 5. clostridium difficile colitis 6. bilateral pneumonia RECOMMENDATION 1. cbc/bmp in am Objective - Constitutional Vitals: Vital Signs Temp Pulse Resp BP Pulse Ox 98.6 F 69 18 109/57 99 10/30/16 16:00 10/30/16 18:00 10/30/16 18:00 10/30/16 18:00 10/30/16 18:00 Temperature -Last 24 Hours Temperature 98.6 F Temperature 98.6 F Temperature 99.6 F Temperature 98.3 F Temperature 99.6 F - Labs CBC & Chem 7: 10/30/16 05:30 10/30/16 05:30 Labs: Abnormal lab results 10/30/16 10/30/16 10/30/16 Range/Units 00:10 05:30 05:30 WBC 19.8 H (4.5-11.0) K/mm3 RBC 2.51 L (3.65-5.03) M/mm3 Hgb 7.7 L (10.1-14.3) gm/dl Hct 24.1 L (30.3-42.9) % RDW 15.5 H (13.2-15.2) % Plt Count 534 H (140-440) K/mm3 Glucose 211 H (65-100) mg/dL POC Glucose 202 H (70-105) Calcium 7.4 L (8.4-10.2) mg/dL 10/30/16 Range/Units 06:32 WBC (4.5-11.0) K/mm3 RBC (3.65-5.03) M/mm3 Hgb (10.1-14.3) gm/dl Hct (30.3-42.9) % RDW (13.2-15.2) % Plt Count (140-440) K/mm3 Glucose (65-100) mg/dL POC Glucose 207 H (70-105) Calcium (8.4-10.2) mg/dL
[2016-10-30] MEDS: LEVAQUIN 750MG/150ML 750 MG/150 ML BAG IV SCH (21:53)
[2016-10-31] MEDS: HEPARIN/ 0.45% NACL-25,000 UNIT/500 ML 25,000 UNITS/500 ML BAG IV SCH ×2 (02:02→17:13)
[2016-10-31] MEDS: fentaNYL DRIP Premix 2,000 MCG/100 ML BAG IV SCH ×3 (04:15→23:38)
[2016-10-31] MEDS: FLAGYL PO SCH ×3 (06:20→22:08)
[2016-10-31] MEDS: LOPRESSOR FEEDTUBE SCH ×3 (06:20→22:07)
[2016-10-31] MEDS: CLEOCIN 600 MG/50 mL 600 MG/50 ML BAG IV SCH ×5 (06:22→22:06)
[2016-10-31] MEDS: PEPCID PO SCH ×2 (09:55→22:08)
--- NOTE | 2016-10-31 12:18 | Progress Note ---
Assessment and Plan - Patient Problems (1) Acute respiratory failure with hypercapnia Current Visit: Yes Status: Acute Plan to address problem: - continue aspiration precautions / VAP bundles - continue bronchodilators and pulmonary toilet - wean oxygen to keep sats > 94% - resume graded weaning at Psupp of 20 cmH2O - ETT day # 15-16 - awaiting tracheostomy tentatively for 11/02/16 (2) Altered mental status Current Visit: Yes Status: Acute Qualifiers: Altered mental status type: A Coma depth: C Coma timing: C Plan to address problem: - no active seizures - following clinically - seen by neurology and will follow their recommendations - no seizures on EEG (3) LUCY (acute kidney injury) Current Visit: Yes Status: Acute Plan to address problem: - resolved - follow I's & O's (4) DKA (diabetic ketoacidoses) Current Visit: Yes Status: Acute Qualifiers: Diabetes mellitus type: D Diabetes mellitus complication detail: D Plan to address problem: - resolved - continue SSI (5) Sepsis Current Visit: No Status: Acute Qualifiers: Sepsis type: S Plan to address problem: (Suspect patient will need right foot intervention / amputation before she will show significant improvement clinically) - continue anti-infectives per ID recs - follow clinically - trend lactate and CRP prn (6) Discharge planning issues Current Visit: No Status: Acute Plan to address problem: - not accepted by [facility] ...remains critically ill on life sustaining treatments including MVS and at high risk for further deterioration including ...35' CCT Subjective Date of service: 10/31/16 Principal diagnosis: respiratory failure on mechanical ventilatory support, DKA Interval history: Seen and examined at bedside; 24 hour events reviewed; nursing and respiratory care staff consulted; no adverse overnight events reported to me; resting peacefully; no emesis or overt aspiration; some blisters noted around right lower blake; NAD Objective Vital Signs - 12hr 10/31/16 10/31/16 10/31/16 00:30 00:45 01:00 Temperature Pulse Rate 89 81 94 H Pulse Rate [ Apical] Pulse Rate [ From Monitor] Respiratory 11 L 18 21 Rate Blood Pressure 124/64 116/58 135/73 O2 Sat by Pulse 100 100 98 Oximetry 10/31/16 10/31/16 10/31/16 01:15 01:30 01:45 Temperature Pulse Rate 93 H 91 H 94 H Pulse Rate [ Apical] Pulse Rate [ From Monitor] Respiratory 20 18 19 Rate Blood Pressure 135/65 134/64 129/66 O2 Sat by Pulse 98 100 100 Oximetry 10/31/16 10/31/16 10/31/16 02:00 02:15 02:30 Temperature Pulse Rate 100 H 107 H 112 H Pulse Rate [ Apical] Pulse Rate [ From Monitor] Respiratory 18 16 13 Rate Blood Pressure 133/65 137/74 134/79 O2 Sat by Pulse 99 100 97 Oximetry 10/31/16 10/31/16 10/31/16 02:45 03:00 03:15 Temperature Pulse Rate 114 H 118 H 123 H Pulse Rate [ Apical] Pulse Rate [ From Monitor] Respiratory 15 18 11 L Rate Blood Pressure 141/71 146/71 144/73 O2 Sat by Pulse 100 95 99 Oximetry 10/31/16 10/31/16 10/31/16 03:25 03:30 03:45 Temperature Pulse Rate 112 H 112 H 116 H Pulse Rate [ Apical] Pulse Rate [ From Monitor] Respiratory 20 25 H Rate Blood Pressure 144/73 148/58 137/66 O2 Sat by Pulse 98 99 98 Oximetry 10/31/16 10/31/16 10/31/16 03:57 04:00 04:15 Temperature 99.8 F H Pulse Rate 117 H 109 H Pulse Rate [ 109 H Apical] Pulse Rate [ 109 H From Monitor] Respiratory 22 12 15 Rate Blood Pressure 148/64 138/66 O2 Sat by Pulse 98 99 98 Oximetry 10/31/16 10/31/16 10/31/16 04:30 04:45 05:00 Temperature Pulse Rate 105 H 104 H 98 H Pulse Rate [ Apical] Pulse Rate [ From Monitor] Respiratory 18 15 17 Rate Blood Pressure 138/66 126/57 119/50 O2 Sat by Pulse 100 99 100 Oximetry 10/31/16 10/31/16 10/31/16 05:15 05:30 05:46 Temperature Pulse Rate 97 H 98 H 103 H Pulse Rate [ Apical] Pulse Rate [ From Monitor] Respiratory 17 17 14 Rate Blood Pressure 121/53 110/56 118/51 O2 Sat by Pulse 100 100 100 Oximetry 10/31/16 10/31/16 10/31/16 06:00 06:15 06:20 Temperature Pulse Rate 97 H 103 H 100 H Pulse Rate [ Apical] Pulse Rate [ From Monitor] Respiratory 18 18 Rate Blood Pressure 115/53 107/52 125/82 O2 Sat by Pulse 100 99 Oximetry 10/31/16 10/31/16 10/31/16 06:30 06:45 07:00 Temperature Pulse Rate 94 H 92 H 90 Pulse Rate [ Apical] Pulse Rate [ From Monitor] Respiratory 19 17 18 Rate Blood Pressure 115/53 105/61 113/53 O2 Sat by Pulse 100 100 100 Oximetry 10/31/16 10/31/16 10/31/16 07:15 07:30 07:45 Temperature Pulse Rate 92 H 92 H 96 H Pulse Rate [ Apical] Pulse Rate [ From Monitor] Respiratory 18 21 17 Rate Blood Pressure 119/57 116/52 123/59 O2 Sat by Pulse 99 99 99 Oximetry 10/31/16 10/31/16 10/31/16 07:59 08:00 08:10 Temperature 98.9 F Pulse Rate 100 H 99 H Pulse Rate [ 96 H Apical] Pulse Rate [ 96 H From Monitor] Respiratory 17 18 Rate Blood Pressure 123/59 123/59 O2 Sat by Pulse 96 100 99 Oximetry 10/31/16 10/31/16 10/31/16 08:15 08:30 08:45 Temperature Pulse Rate 99 H 98 H 100 H Pulse Rate [ Apical] Pulse Rate [ From Monitor] Respiratory 19 18 18 Rate Blood Pressure 129/53 115/52 119/64 O2 Sat by Pulse 100 100 100 Oximetry 10/31/16 10/31/16 10/31/16 09:00 09:15 09:30 Temperature Pulse Rate 101 H 104 H 104 H Pulse Rate [ Apical] Pulse Rate [ From Monitor] Respiratory 18 17 18 Rate Blood Pressure 129/52 116/59 123/58 O2 Sat by Pulse 100 100 96 Oximetry 10/31/16 10/31/16 10/31/16 09:45 10:00 10:15 Temperature Pulse Rate 106 H 105 H 108 H Pulse Rate [ Apical] Pulse Rate [ From Monitor] Respiratory 20 18 16 Rate Blood Pressure 129/55 123/54 124/52 O2 Sat by Pulse 96 97 100 Oximetry 10/31/16 10/31/16 10/31/16 10:30 10:38 10:45 Temperature Pulse Rate 105 H 98 H 98 H Pulse Rate [ Apical] Pulse Rate [ From Monitor] Respiratory 18 18 Rate Blood Pressure 122/55 108/46 O2 Sat by Pulse 98 96 99 Oximetry 10/31/16 10/31/16 10/31/16 11:00 11:15 11:30 Temperature Pulse Rate 99 H 96 H 94 H Pulse Rate [ Apical] Pulse Rate [ From Monitor] Respiratory 18 17 18 Rate Blood Pressure 115/52 121/55 122/57 O2 Sat by Pulse 97 99 Oximetry 10/31/16 10/31/16 11:45 12:00 Temperature Pulse Rate 96 H 95 H Pulse Rate [ Apical] Pulse Rate [ From Monitor] Respiratory 17 18 Rate Blood Pressure 122/57 128/59 O2 Sat by Pulse 99 98 Oximetry Constitutional: no acute distress, other (? delirium / dementia element) Eyes: non-icteric ENT: oropharynx moist Neck: supple, no lymphadenopathy Effort: mildly labored Ascultation: Bilateral: diminished breath sounds, rales (bases) Cardiovascular: regular rate and rhythm, other (tachycardia) Gastrointestinal: normoactive bowel sounds, soft, non-tender, non-distended Integumentary: normal Extremities: no cyanosis, no edema, no ischemia or petechiae, other (cold right foot with digital ischemia) Neurologic: non-focal exam (grossly), unable to assess Psychiatric: other (sedated) CBC and BMP: 11/01/16 06:33 11/01/16 06:33 ABG, PT/INR, D-dimer: ABG POC ABG pH 7.398 (7.35-7.45) 10/26/16 15:28 POC ABG pCO2 33.7 (35-45) L 10/26/16 15:28 POC ABG pO2 99 (80-105) 10/26/16 15:28 POC ABG HCO3 20.8 10/26/16 15:28 POC ABG Total CO2 22 10/26/16 15:28 POC ABG O2 Sat 98 10/26/16 15:28 PT/INR, D-dimer PT 16.4 Sec. (12.2-14.9) H 10/17/16 16:07 INR 1.33 (0.87-1.13) H 10/17/16 16:07 Abnormal lab findings: Abnormal Labs 10/13/16 10/13/16 10/13/16 06:38 06:38 07:23 WBC RBC Hgb Hct MCV RDW Plt Count Lymph % (Auto) [place] % (Auto) [place] # Seg Neutrophils % Seg Neuts % (Manual) Lymphocytes % (Manual) Monocytes % (Manual) Seg Neutrophils # Seg Neutrophils # Man Lymphocytes # (Manual) Monocytes # (Manual) Eosinophils # (Manual) Basophils # (Manual) PT INR APTT Heparin Anti-Xa Level POC ABG pH POC ABG pCO2 POC ABG pO2 Sodium Potassium 6.2 H* Chloride Carbon Dioxide 8 L* BUN 85 H Creatinine 2.8 H Glucose 602 H* POC Glucose 495 H Calcium 7.9 L Phosphorus 6.9 H D Magnesium 3.0 H AST C-Reactive Protein Total Protein Albumin Lipase Vitamin B12 TSH Urine WBC (Auto) Urine Chloride Urine Total Protein Crossmatch 10/13/16 10/13/16 10/13/16 08:49 08:55 10:12 WBC RBC Hgb Hct MCV RDW Plt Count Lymph % (Auto) [place] % (Auto) [place] # Seg Neutrophils % Seg Neuts % (Manual) Lymphocytes % (Manual) Monocytes % (Manual) Seg Neutrophils # Seg Neutrophils # Man Lymphocytes # (Manual) Monocytes # (Manual) Eosinophils # (Manual) Basophils # (Manual) PT INR APTT Heparin Anti-Xa Level POC ABG pH POC ABG pCO2 POC ABG pO2 Sodium Potassium 5.6 H Chloride Carbon Dioxide 11 L BUN 77 H Creatinine 2.7 H Glucose 457 H POC Glucose > 500 H 424 H Calcium 8.0 L Phosphorus Magnesium AST C-Reactive Protein Total Protein Albumin Lipase Vitamin B12 TSH Urine WBC (Auto) Urine Chloride Urine Total Protein Crossmatch 10/13/16 10/13/16 10/13/16 10:44 11:22 12:20 WBC RBC Hgb Hct MCV RDW Plt Count Lymph % (Auto) [place] % (Auto) [place] # Seg Neutrophils % Seg Neuts % (Manual) Lymphocytes % (Manual) Monocytes % (Manual) Seg Neutrophils # Seg Neutrophils # Man Lymphocytes # (Manual) Monocytes # (Manual) Eosinophils # (Manual) Basophils # (Manual) PT INR APTT Heparin Anti-Xa Level POC ABG pH POC ABG pCO2 POC ABG pO2 Sodium Potassium 5.4 H Chloride Carbon Dioxide 14 L BUN 72 H Creatinine 2.6 H Glucose 383 H POC Glucose 391 H 313 H Calcium 8.2 L Phosphorus Magnesium AST C-Reactive Protein Total Protein Albumin Lipase Vitamin B12 TSH Urine WBC (Auto) Urine Chloride Urine Total Protein Crossmatch 10/13/16 10/13/1610/13/17 13:32 14:44 15:57 WBC RBC Hgb Hct MCV RDW Plt Count Lymph % (Auto) [place] % (Auto) [place] # Seg Neutrophils % Seg Neuts % (Manual) Lymphocytes % (Manual) Monocytes % (Manual) Seg Neutrophils # Seg Neutrophils # Man Lymphocytes # (Manual) Monocytes # (Manual) Eosinophils # (Manual) Basophils # (Manual) PT INR APTT Heparin Anti-Xa Level POC ABG pH POC ABG pCO2 POC ABG pO2 Sodium Potassium Chloride Carbon Dioxide BUN Creatinine Glucose POC Glucose 296 H 210 H 190 H Calcium Phosphorus Magnesium AST C-Reactive Protein Total Protein Albumin Lipase Vitamin B12 TSH Urine WBC (Auto) Urine Chloride Urine Total Protein Crossmatch 10/13/16 10/13/16 10/13/16 16:14 16:14 17:17 WBC RBC Hgb Hct MCV RDW Plt Count Lymph % (Auto) [place] % (Auto) [place] # Seg Neutrophils % Seg Neuts % (Manual) Lymphocytes % (Manual) Monocytes % (Manual) Seg Neutrophils # Seg Neutrophils # Man Lymphocytes # (Manual) Monocytes # (Manual) Eosinophils # (Manual) Basophils # (Manual) PT INR APTT Heparin Anti-Xa Level POC ABG pH POC ABG pCO2 POC ABG pO2 Sodium Potassium Chloride Carbon Dioxide 17 L BUN 58 H Creatinine 1.8 H Glucose 172 H POC Glucose 193 H Calcium 7.7 L Phosphorus Magnesium AST C-Reactive Protein 10.50 H Total Protein Albumin Lipase Vitamin B12 TSH Urine WBC (Auto) Urine Chloride Urine Total Protein Crossmatch 10/13/16 10/13/16 10/13/16 17:55 18:32 19:41 WBC RBC Hgb Hct MCV RDW Plt Count Lymph % (Auto) [place] % (Auto) [place] # Seg Neutrophils % Seg Neuts % (Manual) Lymphocytes % (Manual) Monocytes % (Manual) Seg Neutrophils # Seg Neutrophils # Man Lymphocytes # (Manual) Monocytes # (Manual) Eosinophils # (Manual) Basophils # (Manual) PT INR APTT Heparin Anti-Xa Level POC ABG pH POC ABG pCO2 30.6 L POC ABG pO2 218 H Sodium Potassium Chloride Carbon Dioxide BUN Creatinine Glucose POC Glucose 192 H 177 H Calcium Phosphorus Magnesium AST C-Reactive Protein Total Protein Albumin Lipase Vitamin B12 TSH Urine WBC (Auto) Urine Chloride Urine Total Protein Crossmatch 10/13/16 10/13/16 10/13/16 20:54 22:07 23:13 WBC RBC Hgb Hct MCV RDW Plt Count Lymph % (Auto) [place] % (Auto) [place] # Seg Neutrophils % Seg Neuts % (Manual) Lymphocytes % (Manual) Monocytes % (Manual) Seg Neutrophils # Seg Neutrophils # Man Lymphocytes # (Manual) Monocytes # (Manual) Eosinophils # (Manual) Basophils # (Manual) PT INR APTT Heparin Anti-Xa Level POC ABG pH POC ABG pCO2 POC ABG pO2 Sodium Potassium Chloride Carbon Dioxide BUN Creatinine Glucose POC Glucose 178 H 160 H 168 H Calcium Phosphorus Magnesium AST C-Reactive Protein Total Protein Albumin Lipase Vitamin B12 TSH Urine WBC (Auto) Urine Chloride Urine Total Protein Crossmatch 10/13/16 10/13/16 10/14/16 23:25 Unknown 00:21 WBC RBC Hgb Hct MCV RDW Plt Count Lymph % (Auto) [place] % (Auto) [place] # Seg Neutrophils % Seg Neuts % (Manual) Lymphocytes % (Manual) Monocytes % (Manual) Seg Neutrophils # Seg Neutrophils # Man Lymphocytes # (Manual) Monocytes # (Manual) Eosinophils # (Manual) Basophils # (Manual) PT INR APTT Heparin Anti-Xa Level POC ABG pH POC ABG pCO2 POC ABG pO2 Sodium 148 H Potassium Chloride 114.6 H Carbon Dioxide 17 L BUN 56 H Creatinine 1.6 H Glucose 151 H POC Glucose 171 H Calcium 7.8 L Phosphorus Magnesium AST C-Reactive Protein Total Protein Albumin Lipase Vitamin B12 TSH Urine WBC (Auto) Urine Chloride 10.0 L Urine Total Protein < 4 L Crossmatch 10/14/16 10/14/16 10/14/16 01:22 02:29 03:30 WBC RBC Hgb Hct MCV RDW Plt Count Lymph % (Auto) [place] % (Auto) [place] # Seg Neutrophils % Seg Neuts % (Manual) Lymphocytes % (Manual) Monocytes % (Manual) Seg Neutrophils # Seg Neutrophils # Man Lymphocytes # (Manual) Monocytes # (Manual) Eosinophils # (Manual) Basophils # (Manual) PT INR APTT Heparin Anti-Xa Level POC ABG pH POC ABG pCO2 POC ABG pO2 Sodium Potassium Chloride Carbon Dioxide BUN Creatinine Glucose POC Glucose 144 H 136 H 143 H Calcium Phosphorus Magnesium AST C-Reactive Protein Total Protein Albumin Lipase Vitamin B12 TSH Urine WBC (Auto) Urine Chloride Urine Total Protein Crossmatch 10/14/16 10/14/16 10/14/16 04:28 05:16 05:44 WBC RBC Hgb Hct MCV RDW Plt Count Lymph % (Auto) [place] % (Auto) [place] # Seg Neutrophils % Seg Neuts % (Manual) Lymphocytes % (Manual) Monocytes % (Manual) Seg Neutrophils # Seg Neutrophils # Man Lymphocytes # (Manual) Monocytes # (Manual) Eosinophils # (Manual) Basophils # (Manual) PT INR APTT Heparin Anti-Xa Level POC ABG pH POC ABG pCO2 28.2 L POC ABG pO2 125 H Sodium Potassium Chloride Carbon Dioxide BUN Creatinine Glucose POC Glucose 133 H 160 H Calcium Phosphorus Magnesium AST C-Reactive Protein Total Protein Albumin Lipase Vitamin B12 TSH Urine WBC (Auto) Urine Chloride Urine Total Protein Crossmatch 10/14/16 10/14/16 10/14/16 06:12 06:45 07:03 WBC RBC Hgb Hct MCV RDW Plt Count Lymph % (Auto) [place] % (Auto) [place] # Seg Neutrophils % Seg Neuts % (Manual) Lymphocytes % (Manual) Monocytes % (Manual) Seg Neutrophils # Seg Neutrophils # Man Lymphocytes # (Manual) Monocytes # (Manual) Eosinophils # (Manual) Basophils # (Manual) PT INR APTT Heparin Anti-Xa Level POC ABG pH POC ABG pCO2 POC ABG pO2 Sodium 149 H Potassium Chloride 115.4 H Carbon Dioxide 17 L BUN 45 H Creatinine 1.5 H Glucose 139 H POC Glucose 149 H Calcium 7.4 L Phosphorus 1.0 L D Magnesium AST C-Reactive Protein Total Protein Albumin Lipase Vitamin B12 TSH Urine WBC (Auto) Urine Chloride Urine Total Protein Crossmatch 10/14/16 10/14/16 10/14/16 07:03 08:02 09:16 WBC RBC Hgb Hct MCV RDW Plt Count Lymph % (Auto) [place] % (Auto) [place] # Seg Neutrophils % Seg Neuts % (Manual) Lymphocytes % (Manual) Monocytes % (Manual) Seg Neutrophils # Seg Neutrophils # Man Lymphocytes # (Manual) Monocytes # (Manual) Eosinophils # (Manual) Basophils # (Manual) PT INR APTT Heparin Anti-Xa Level POC ABG pH POC ABG pCO2 POC ABG pO2 Sodium Potassium Chloride Carbon Dioxide BUN Creatinine Glucose POC Glucose 156 H 158 H Calcium Phosphorus Magnesium AST C-Reactive Protein Total Protein Albumin Lipase 738 H Vitamin B12 TSH Urine WBC (Auto) Urine Chloride Urine Total Protein Crossmatch 10/14/16 10/14/16 10/14/16 10:26 11:03 11:57 WBC RBC Hgb Hct MCV RDW Plt Count Lymph % (Auto) [place] % (Auto) [place] # Seg Neutrophils % Seg Neuts % (Manual) Lymphocytes % (Manual) Monocytes % (Manual) Seg Neutrophils # Seg Neutrophils # Man Lymphocytes # (Manual) Monocytes # (Manual) Eosinophils # (Manual) Basophils # (Manual) PT INR APTT Heparin Anti-Xa Level POC ABG pH 7.198 L POC ABG pCO2 47.5 H POC ABG pO2 Sodium Potassium Chloride Carbon Dioxide BUN Creatinine Glucose POC Glucose 174 H 189 H Calcium Phosphorus Magnesium AST C-Reactive Protein Total Protein Albumin Lipase Vitamin B12 TSH Urine WBC (Auto) Urine Chloride Urine Total Protein Crossmatch 10/14/16 10/14/16 10/14/16 12:02 12:02 13:11 WBC 13.4 H RBC 3.60 L Hgb Hct MCV 98 H D RDW 13.1 L Plt Count Lymph % (Auto) [place] % (Auto) [place] # Seg Neutrophils % Seg Neuts % (Manual) Lymphocytes % (Manual) Monocytes % (Manual) Seg Neutrophils # Seg Neutrophils # Man Lymphocytes # (Manual) Monocytes # (Manual) Eosinophils # (Manual) Basophils # (Manual) PT INR APTT Heparin Anti-Xa Level POC ABG pH POC ABG pCO2 POC ABG pO2 Sodium Potassium Chloride 110.7 H Carbon Dioxide 19 L BUN 38 H Creatinine 1.4 H Glucose 182 H POC Glucose 173 H Calcium 7.5 L Phosphorus Magnesium AST C-Reactive Protein Total Protein Albumin Lipase Vitamin B12 TSH Urine WBC (Auto) Urine Chloride Urine Total Protein Crossmatch 10/14/16 10/14/16 10/14/16 14:24 15:31 16:36 WBC RBC Hgb Hct MCV RDW Plt Count Lymph % (Auto) [place] % (Auto) [place] # Seg Neutrophils % Seg Neuts % (Manual) Lymphocytes % (Manual) Monocytes % (Manual) Seg Neutrophils # Seg Neutrophils # Man Lymphocytes # (Manual) Monocytes # (Manual) Eosinophils # (Manual) Basophils # (Manual) PT INR APTT Heparin Anti-Xa Level POC ABG pH POC ABG pCO2 POC ABG pO2 Sodium Potassium Chloride Carbon Dioxide BUN Creatinine Glucose POC Glucose 123 H 124 H 156 H Calcium Phosphorus Magnesium AST C-Reactive Protein Total Protein Albumin Lipase Vitamin B12 TSH Urine WBC (Auto) Urine Chloride Urine Total Protein Crossmatch 10/14/16 10/14/16 10/14/16 17:43 19:00 20:08 WBC RBC Hgb Hct MCV RDW Plt Count Lymph % (Auto) [place] % (Auto) [place] # Seg Neutrophils % Seg Neuts % (Manual) Lymphocytes % (Manual) Monocytes % (Manual) Seg Neutrophils # Seg Neutrophils # Man Lymphocytes # (Manual) Monocytes # (Manual) Eosinophils # (Manual) Basophils # (Manual) PT INR APTT Heparin Anti-Xa Level POC ABG pH POC ABG pCO2 POC ABG pO2 Sodium Potassium Chloride Carbon Dioxide BUN Creatinine Glucose POC Glucose 154 H 123 H 138 H Calcium Phosphorus Magnesium AST C-Reactive Protein Total Protein Albumin Lipase Vitamin B12 TSH Urine WBC (Auto) Urine Chloride Urine Total Protein Crossmatch 10/14/16 10/14/16 10/14/16 21:17 22:25 23:37 WBC RBC Hgb Hct MCV RDW Plt Count Lymph % (Auto) [place] % (Auto) [place] # Seg Neutrophils % Seg Neuts % (Manual) Lymphocytes % (Manual) Monocytes % (Manual) Seg Neutrophils # Seg Neutrophils # Man Lymphocytes # (Manual) Monocytes # (Manual) Eosinophils # (Manual) Basophils # (Manual) PT INR APTT Heparin Anti-Xa Level POC ABG pH POC ABG pCO2 POC ABG pO2 Sodium Potassium Chloride Carbon Dioxide BUN Creatinine Glucose POC Glucose 148 H 132 H 137 H Calcium Phosphorus Magnesium AST C-Reactive Protein Total Protein Albumin Lipase Vitamin B12 TSH Urine WBC (Auto) Urine Chloride Urine Total Protein Crossmatch 10/15/16 10/15/16 10/15/16 00:49 01:53 03:06 WBC RBC Hgb Hct MCV RDW Plt Count Lymph % (Auto) [place] % (Auto) [place] # Seg Neutrophils % Seg Neuts % (Manual) Lymphocytes % (Manual) Monocytes % (Manual) Seg Neutrophils # Seg Neutrophils # Man Lymphocytes # (Manual) Monocytes # (Manual) Eosinophils # (Manual) Basophils # (Manual) PT INR APTT Heparin Anti-Xa Level POC ABG pH POC ABG pCO2 POC ABG pO2 Sodium Potassium Chloride Carbon Dioxide BUN Creatinine Glucose POC Glucose 132 H 134 H 134 H Calcium Phosphorus Magnesium AST C-Reactive Protein Total Protein Albumin Lipase Vitamin B12 TSH Urine WBC (Auto) Urine Chloride Urine Total Protein Crossmatch 10/15/16 10/15/16 10/15/16 04:40 04:46 06:21 WBC RBC Hgb Hct MCV RDW Plt Count Lymph % (Auto) [place] % (Auto) [place] # Seg Neutrophils % Seg Neuts % (Manual) Lymphocytes % (Manual) Monocytes % (Manual) Seg Neutrophils # Seg Neutrophils # Man Lymphocytes # (Manual) Monocytes # (Manual) Eosinophils # (Manual) Basophils # (Manual) PT INR APTT Heparin Anti-Xa Level POC ABG pH POC ABG pCO2 30.7 L POC ABG pO2 108 H Sodium Potassium Chloride 109.0 H Carbon Dioxide 17 L BUN 27 H Creatinine Glucose 124 H POC Glucose 160 H Calcium 7.5 L Phosphorus Magnesium AST 79 H C-Reactive Protein Total Protein 5.5 L Albumin 3.0 L Lipase Vitamin B12 TSH Urine WBC (Auto) Urine Chloride Urine Total Protein Crossmatch 10/15/16 10/15/16 10/15/16 07:12 08:01 09:03 WBC RBC Hgb Hct MCV RDW Plt Count Lymph % (Auto) [place] % (Auto) [place] # Seg Neutrophils % Seg Neuts % (Manual) Lymphocytes % (Manual) Monocytes % (Manual) Seg Neutrophils # Seg Neutrophils # Man Lymphocytes # (Manual) Monocytes # (Manual) Eosinophils # (Manual) Basophils # (Manual) PT INR APTT Heparin Anti-Xa Level POC ABG pH POC ABG pCO2 POC ABG pO2 Sodium Potassium Chloride Carbon Dioxide BUN Creatinine Glucose POC Glucose 179 H 187 H 165 H Calcium Phosphorus Magnesium AST C-Reactive Protein Total Protein Albumin Lipase Vitamin B12 TSH Urine WBC (Auto) Urine Chloride Urine Total Protein Crossmatch 10/15/16 10/15/16 10/15/16 10:06 10:06 10:07 WBC 12.1 H RBC 3.01 L Hgb 9.7 L Hct 29.6 L MCV 98 H RDW Plt Count 129 L Lymph % (Auto) [place] % (Auto) [place] # Seg Neutrophils % Seg Neuts % (Manual) Lymphocytes % (Manual) Monocytes % (Manual) Seg Neutrophils # Seg Neutrophils # Man Lymphocytes # (Manual) Monocytes # (Manual) Eosinophils # (Manual) Basophils # (Manual) PT INR APTT Heparin Anti-Xa Level POC ABG pH POC ABG pCO2 POC ABG pO2 Sodium Potassium 3.2 L D Chloride 109.6 H Carbon Dioxide 18 L BUN 22 H Creatinine Glucose 127 H POC Glucose 147 H Calcium 7.0 L Phosphorus Magnesium AST C-Reactive Protein Total Protein Albumin Lipase Vitamin B12 TSH Urine WBC (Auto) Urine Chloride Urine Total Protein Crossmatch 10/15/16 10/15/16 10/15/16 11:05 11:06 11:57 WBC RBC Hgb Hct MCV RDW Plt Count Lymph % (Auto) [place] % (Auto) [place] # Seg Neutrophils % Seg Neuts % (Manual) Lymphocytes % (Manual) Monocytes % (Manual) Seg Neutrophils # Seg Neutrophils # Man Lymphocytes # (Manual) Monocytes # (Manual) Eosinophils # (Manual) Basophils # (Manual) PT INR APTT Heparin Anti-Xa Level POC ABG pH 7.305 L POC ABG pCO2 POC ABG pO2 Sodium Potassium Chloride Carbon Dioxide BUN Creatinine Glucose POC Glucose 145 H Calcium Phosphorus Magnesium AST C-Reactive Protein Total Protein Albumin Lipase Vitamin B12 TSH Urine WBC (Auto) 7.0 H Urine Chloride Urine Total Protein Crossmatch 10/15/16 10/15/16 10/15/16 12:04 13:59 15:24 WBC RBC Hgb Hct MCV RDW Plt Count Lymph % (Auto) [place] % (Auto) [place] # Seg Neutrophils % Seg Neuts % (Manual) Lymphocytes % (Manual) Monocytes % (Manual) Seg Neutrophils # Seg Neutrophils # Man Lymphocytes # (Manual) Monocytes # (Manual) Eosinophils # (Manual) Basophils # (Manual) PT INR APTT Heparin Anti-Xa Level POC ABG pH POC ABG pCO2 POC ABG pO2 Sodium Potassium Chloride Carbon Dioxide BUN Creatinine Glucose POC Glucose 123 H 147 H 153 H Calcium Phosphorus Magnesium AST C-Reactive Protein Total Protein Albumin Lipase Vitamin B12 TSH Urine WBC (Auto) Urine Chloride Urine Total Protein Crossmatch 10/15/16 10/15/16 10/15/16 16:30 17:34 18:30 WBC RBC Hgb Hct MCV RDW Plt Count Lymph % (Auto) [place] % (Auto) [place] # Seg Neutrophils % Seg Neuts % (Manual) Lymphocytes % (Manual) Monocytes % (Manual) Seg Neutrophils # Seg Neutrophils # Man Lymphocytes # (Manual) Monocytes # (Manual) Eosinophils # (Manual) Basophils # (Manual) PT INR APTT Heparin Anti-Xa Level POC ABG pH POC ABG pCO2 POC ABG pO2 Sodium Potassium Chloride Carbon Dioxide BUN Creatinine Glucose POC Glucose 223 H 236 H 164 H Calcium Phosphorus Magnesium AST C-Reactive Protein Total Protein Albumin Lipase Vitamin B12 TSH Urine WBC (Auto) Urine Chloride Urine Total Protein Crossmatch 10/15/16 10/15/16 10/15/16 19:14 20:31 21:23 WBC RBC Hgb Hct MCV RDW Plt Count Lymph % (Auto) [place] % (Auto) [place] # Seg Neutrophils % Seg Neuts % (Manual) Lymphocytes % (Manual) Monocytes % (Manual) Seg Neutrophils # Seg Neutrophils # Man Lymphocytes # (Manual) Monocytes # (Manual) Eosinophils # (Manual) Basophils # (Manual) PT INR APTT Heparin Anti-Xa Level POC ABG pH POC ABG pCO2 POC ABG pO2 Sodium Potassium Chloride Carbon Dioxide BUN Creatinine Glucose POC Glucose 138 H 158 H 158 H Calcium Phosphorus Magnesium AST C-Reactive Protein Total Protein Albumin Lipase Vitamin B12 TSH Urine WBC (Auto) Urine Chloride Urine Total Protein Crossmatch 10/15/16 10/15/16 10/16/16 22:04 22:57 00:11 WBC RBC Hgb Hct MCV RDW Plt Count Lymph % (Auto) [place] % (Auto) [place] # Seg Neutrophils % Seg Neuts % (Manual) Lymphocytes % (Manual) Monocytes % (Manual) Seg Neutrophils # Seg Neutrophils # Man Lymphocytes # (Manual) Monocytes # (Manual) Eosinophils # (Manual) Basophils # (Manual) PT INR APTT Heparin Anti-Xa Level POC ABG pH POC ABG pCO2 POC ABG pO2 Sodium Potassium Chloride Carbon Dioxide BUN Creatinine Glucose POC Glucose 168 H 213 H 166 H Calcium Phosphorus Magnesium AST C-Reactive Protein Total Protein Albumin Lipase Vitamin B12 TSH Urine WBC (Auto) Urine Chloride Urine Total Protein Crossmatch 10/16/16 10/16/16 10/16/16 01:16 02:32 03:38 WBC RBC Hgb Hct MCV RDW Plt Count Lymph % (Auto) [place] % (Auto) [place] # Seg Neutrophils % Seg Neuts % (Manual) Lymphocytes % (Manual) Monocytes % (Manual) Seg Neutrophils # Seg Neutrophils # Man Lymphocytes # (Manual) Monocytes # (Manual) Eosinophils # (Manual) Basophils # (Manual) PT INR APTT Heparin Anti-Xa Level POC ABG pH POC ABG pCO2 POC ABG pO2 Sodium Potassium Chloride Carbon Dioxide BUN Creatinine Glucose POC Glucose 171 H 164 H 147 H Calcium Phosphorus Magnesium AST C-Reactive Protein Total Protein Albumin Lipase Vitamin B12 TSH Urine WBC (Auto) Urine Chloride Urine Total Protein Crossmatch 10/16/16 10/16/16 10/16/16 04:14 04:14 04:49 WBC RBC Hgb Hct MCV RDW Plt Count Lymph % (Auto) [place] % (Auto) [place] # Seg Neutrophils % Seg Neuts % (Manual) Lymphocytes % (Manual) Monocytes % (Manual) Seg Neutrophils # Seg Neutrophils # Man Lymphocytes # (Manual) Monocytes # (Manual) Eosinophils # (Manual) Basophils # (Manual) PT INR APTT Heparin Anti-Xa Level POC ABG pH POC ABG pCO2 POC ABG pO2 Sodium 147 H Potassium Chloride 110.9 H Carbon Dioxide 19 L BUN Creatinine Glucose 139 H POC Glucose 144 H Calcium 7.3 L Phosphorus 2.3 L Magnesium AST C-Reactive Protein Total Protein Albumin Lipase 143 H Vitamin B12 TSH Urine WBC (Auto) Urine Chloride Urine Total Protein Crossmatch 10/16/16 10/16/16 10/16/16 05:03 05:41 05:58 WBC 16.5 H RBC 3.36 L Hgb Hct MCV 98 H RDW 13.1 L Plt Count Lymph % (Auto) 8.5 L [place] % (Auto) 7.6 H [place] # 1.3 H Seg Neutrophils % 83.3 H Seg Neuts % (Manual) Lymphocytes % (Manual) Monocytes % (Manual) Seg Neutrophils # 13.8 H Seg Neutrophils # Man Lymphocytes # (Manual) Monocytes # (Manual) Eosinophils # (Manual) Basophils # (Manual) PT INR APTT Heparin Anti-Xa Level POC ABG pH POC ABG pCO2 30.7 L POC ABG pO2 128 H Sodium Potassium Chloride Carbon Dioxide BUN Creatinine Glucose POC Glucose 131 H Calcium Phosphorus Magnesium AST C-Reactive Protein Total Protein Albumin Lipase Vitamin B12 TSH Urine WBC (Auto) Urine Chloride Urine Total Protein Crossmatch 10/16/16 10/16/16 10/16/16 06:32 09:27 09:35 WBC RBC Hgb Hct MCV RDW Plt Count Lymph % (Auto) [place] % (Auto) [place] # Seg Neutrophils % Seg Neuts % (Manual) Lymphocytes % (Manual) Monocytes % (Manual) Seg Neutrophils # Seg Neutrophils # Man Lymphocytes # (Manual) Monocytes # (Manual) Eosinophils # (Manual) Basophils # (Manual) PT INR APTT Heparin Anti-Xa Level POC ABG pH POC ABG pCO2 32.8 L POC ABG pO2 137 H Sodium Potassium Chloride Carbon Dioxide BUN Creatinine Glucose POC Glucose 121 H 150 H Calcium Phosphorus Magnesium AST C-Reactive Protein Total Protein Albumin Lipase Vitamin B12 TSH Urine WBC (Auto) Urine Chloride Urine Total Protein Crossmatch 10/16/16 10/16/16 10/16/16 10:47 13:27 14:24 WBC RBC Hgb Hct MCV RDW Plt Count Lymph % (Auto) [place] % (Auto) [place] # Seg Neutrophils % Seg Neuts % (Manual) Lymphocytes % (Manual) Monocytes % (Manual) Seg Neutrophils # Seg Neutrophils # Man Lymphocytes # (Manual) Monocytes # (Manual) Eosinophils # (Manual) Basophils # (Manual) PT INR APTT Heparin Anti-Xa Level POC ABG pH POC ABG pCO2 POC ABG pO2 Sodium Potassium Chloride Carbon Dioxide BUN Creatinine Glucose POC Glucose 184 H 171 H 174 H Calcium Phosphorus Magnesium AST C-Reactive Protein Total Protein Albumin Lipase Vitamin B12 TSH Urine WBC (Auto) Urine Chloride Urine Total Protein Crossmatch 10/16/16 10/16/16 10/16/16 15:48 16:26 18:17 WBC RBC Hgb Hct MCV RDW Plt Count Lymph % (Auto) [place] % (Auto) [place] # Seg Neutrophils % Seg Neuts % (Manual) Lymphocytes % (Manual) Monocytes % (Manual) Seg Neutrophils # Seg Neutrophils # Man Lymphocytes # (Manual) Monocytes # (Manual) Eosinophils # (Manual) Basophils # (Manual) PT INR APTT Heparin Anti-Xa Level POC ABG pH POC ABG pCO2 POC ABG pO2 Sodium Potassium Chloride Carbon Dioxide BUN Creatinine Glucose POC Glucose 205 H 204 H 234 H Calcium Phosphorus Magnesium AST C-Reactive Protein Total Protein Albumin Lipase Vitamin B12 TSH Urine WBC (Auto) Urine Chloride Urine Total Protein Crossmatch 10/16/16 10/16/16 10/16/16 19:40 20:33 21:36 WBC RBC Hgb Hct MCV RDW Plt Count Lymph % (Auto) [place] % (Auto) [place] # Seg Neutrophils % Seg Neuts % (Manual) Lymphocytes % (Manual) Monocytes % (Manual) Seg Neutrophils # Seg Neutrophils # Man Lymphocytes # (Manual) Monocytes # (Manual) Eosinophils # (Manual) Basophils # (Manual) PT INR APTT Heparin Anti-Xa Level POC ABG pH POC ABG pCO2 POC ABG pO2 Sodium Potassium Chloride Carbon Dioxide BUN Creatinine Glucose POC Glucose 167 H 153 H 158 H Calcium Phosphorus Magnesium AST C-Reactive Protein Total Protein Albumin Lipase Vitamin B12 TSH Urine WBC (Auto) Urine Chloride Urine Total Protein Crossmatch 10/16/16 10/16/16 10/17/16 22:54 23:48 00:47 WBC RBC Hgb Hct MCV RDW Plt Count Lymph % (Auto) [place] % (Auto) [place] # Seg Neutrophils % Seg Neuts % (Manual) Lymphocytes % (Manual) Monocytes % (Manual) Seg Neutrophils # Seg Neutrophils # Man Lymphocytes # (Manual) Monocytes # (Manual) Eosinophils # (Manual) Basophils # (Manual) PT INR APTT Heparin Anti-Xa Level POC ABG pH POC ABG pCO2 POC ABG pO2 Sodium Potassium Chloride Carbon Dioxide BUN Creatinine Glucose POC Glucose 180 H 207 H 196 H Calcium Phosphorus Magnesium AST C-Reactive Protein Total Protein Albumin Lipase Vitamin B12 TSH Urine WBC (Auto) Urine Chloride Urine Total Protein Crossmatch 10/17/16 10/17/16 10/17/16 01:57 02:49 03:50 WBC RBC Hgb Hct MCV RDW Plt Count Lymph % (Auto) [place] % (Auto) [place] # Seg Neutrophils % Seg Neuts % (Manual) Lymphocytes % (Manual) Monocytes % (Manual) Seg Neutrophils # Seg Neutrophils # Man Lymphocytes # (Manual) Monocytes # (Manual) Eosinophils # (Manual) Basophils # (Manual) PT INR APTT Heparin Anti-Xa Level POC ABG pH POC ABG pCO2 POC ABG pO2 Sodium Potassium Chloride Carbon Dioxide BUN Creatinine Glucose POC Glucose 180 H 151 H 106 H Calcium Phosphorus Magnesium AST C-Reactive Protein Total Protein Albumin Lipase Vitamin B12 TSH Urine WBC (Auto) Urine Chloride Urine Total Protein Crossmatch 10/17/16 10/17/16 10/17/16 04:59 06:03 06:35 WBC RBC Hgb Hct MCV RDW Plt Count Lymph % (Auto) [place] % (Auto) [place] # Seg Neutrophils % Seg Neuts % (Manual) Lymphocytes % (Manual) Monocytes % (Manual) Seg Neutrophils # Seg Neutrophils # Man Lymphocytes # (Manual) Monocytes # (Manual) Eosinophils # (Manual) Basophils # (Manual) PT INR APTT Heparin Anti-Xa Level POC ABG pH 7.453 H POC ABG pCO2 30.1 L POC ABG pO2 111 H Sodium Potassium Chloride Carbon Dioxide BUN Creatinine Glucose POC Glucose 145 H 157 H Calcium Phosphorus Magnesium AST C-Reactive Protein Total Protein Albumin Lipase Vitamin B12 TSH Urine WBC (Auto) Urine Chloride Urine Total Protein Crossmatch 10/17/16 10/17/16 10/17/16 07:08 07:11 08:01 WBC RBC Hgb Hct MCV RDW Plt Count Lymph % (Auto) [place] % (Auto) [place] # Seg Neutrophils % Seg Neuts % (Manual) Lymphocytes % (Manual) Monocytes % (Manual) Seg Neutrophils # Seg Neutrophils # Man Lymphocytes # (Manual) Monocytes # (Manual) Eosinophils # (Manual) Basophils # (Manual) PT INR APTT Heparin Anti-Xa Level POC ABG pH POC ABG pCO2 POC ABG pO2 Sodium 147 H Potassium Chloride 113.8 H Carbon Dioxide 19 L BUN Creatinine Glucose 136 H POC Glucose 136 H 152 H Calcium 7.7 L Phosphorus Magnesium AST C-Reactive Protein Total Protein Albumin Lipase Vitamin B12 TSH Urine WBC (Auto) Urine Chloride Urine Total Protein Crossmatch 10/17/16 10/17/16 10/17/16 08:23 09:17 09:53 WBC 18.1 H RBC 3.01 L Hgb 9.7 L Hct 29.4 L MCV 98 H RDW Plt Count 116 L Lymph % (Auto) [place] % (Auto) [place] # Seg Neutrophils % Seg Neuts % (Manual) 77.0 H Lymphocytes % (Manual) 4.0 L Monocytes % (Manual) 12.0 H Seg Neutrophils # Seg Neutrophils # Man 13.9 H Lymphocytes # (Manual) 0.7 L Monocytes # (Manual) 2.2 H Eosinophils # (Manual) Basophils # (Manual) PT INR APTT Heparin Anti-Xa Level POC ABG pH POC ABG pCO2 POC ABG pO2 Sodium Potassium Chloride Carbon Dioxide BUN Creatinine Glucose POC Glucose 148 H 137 H Calcium Phosphorus Magnesium AST C-Reactive Protein Total Protein Albumin Lipase Vitamin B12 TSH Urine WBC (Auto) Urine Chloride Urine Total Protein Crossmatch 10/17/16 10/17/16 10/17/16 11:43 16:07 17:42 WBC RBC Hgb Hct MCV RDW Plt Count Lymph % (Auto) [place] % (Auto) [place] # Seg Neutrophils % Seg Neuts % (Manual) Lymphocytes % (Manual) Monocytes % (Manual) Seg Neutrophils # Seg Neutrophils # Man Lymphocytes # (Manual) Monocytes # (Manual) Eosinophils # (Manual) Basophils # (Manual) PT 16.4 H INR 1.33 H APTT 38.8 H Heparin Anti-Xa Level POC ABG pH POC ABG pCO2 POC ABG pO2 Sodium Potassium Chloride Carbon Dioxide BUN Creatinine Glucose POC Glucose 179 H 153 H Calcium Phosphorus Magnesium AST C-Reactive Protein Total Protein Albumin Lipase Vitamin B12 TSH Urine WBC (Auto) Urine Chloride Urine Total Protein Crossmatch 10/17/16 10/18/16 10/18/16 22:54 04:37 05:39 WBC RBC Hgb Hct MCV RDW Plt Count Lymph % (Auto) [place] % (Auto) [place] # Seg Neutrophils % Seg Neuts % (Manual) Lymphocytes % (Manual) Monocytes % (Manual) Seg Neutrophils # Seg Neutrophils # Man Lymphocytes # (Manual) Monocytes # (Manual) Eosinophils # (Manual) Basophils # (Manual) PT INR APTT Heparin Anti-Xa Level 0.27 L POC ABG pH 7.454 H POC ABG pCO2 30.8 L POC ABG pO2 115 H Sodium Potassium Chloride Carbon Dioxide BUN Creatinine Glucose POC Glucose 69 L Calcium Phosphorus Magnesium AST C-Reactive Protein Total Protein Albumin Lipase Vitamin B12 TSH Urine WBC (Auto) Urine Chloride Urine Total Protein Crossmatch 10/18/16 10/18/16 10/18/16 06:46 06:46 06:46 WBC 20.5 H RBC 2.62 L Hgb 8.4 L Hct 26.0 L MCV 100 H RDW Plt Count Lymph % (Auto) [place] % (Auto) [place] # Seg Neutrophils % Seg Neuts % (Manual) 75.0 H Lymphocytes % (Manual) 9.0 L Monocytes % (Manual) 14.0 H Seg Neutrophils # Seg Neutrophils # Man 15.4 H Lymphocytes # (Manual) Monocytes # (Manual) 2.9 H Eosinophils # (Manual) Basophils # (Manual) PT INR APTT Heparin Anti-Xa Level POC ABG pH POC ABG pCO2 POC ABG pO2 Sodium Potassium Chloride 110.6 H Carbon Dioxide BUN Creatinine 1.3 H Glucose 153 H POC Glucose Calcium 8.0 L Phosphorus Magnesium 1.6 L AST C-Reactive Protein Total Protein Albumin Lipase Vitamin B12 TSH Urine WBC (Auto) Urine Chloride Urine Total Protein Crossmatch 10/18/16 10/18/16 10/18/16 07:30 11:37 17:51 WBC RBC Hgb Hct MCV RDW Plt Count Lymph % (Auto) [place] % (Auto) [place] # Seg Neutrophils % Seg Neuts % (Manual) Lymphocytes % (Manual) Monocytes % (Manual) Seg Neutrophils # Seg Neutrophils # Man Lymphocytes # (Manual) Monocytes # (Manual) Eosinophils # (Manual) Basophils # (Manual) PT INR APTT Heparin Anti-Xa Level POC ABG pH POC ABG pCO2 POC ABG pO2 Sodium Potassium Chloride Carbon Dioxide BUN Creatinine Glucose POC Glucose 162 H 156 H 164 H Calcium Phosphorus Magnesium AST C-Reactive Protein Total Protein Albumin Lipase Vitamin B12 TSH Urine WBC (Auto) Urine Chloride Urine Total Protein Crossmatch 10/18/16 10/19/16 10/19/16 23:44 03:59 05:13 WBC 18.2 H RBC 2.76 L Hgb 9.0 L Hct 27.7 L MCV 100 H RDW Plt Count Lymph % (Auto) [place] % (Auto) [place] # Seg Neutrophils % Seg Neuts % (Manual) 76.0 H Lymphocytes % (Manual) 10.0 L Monocytes % (Manual) Seg Neutrophils # Seg Neutrophils # Man 13.8 H Lymphocytes # (Manual) Monocytes # (Manual) Eosinophils # (Manual) Basophils # (Manual) PT INR APTT Heparin Anti-Xa Level POC ABG pH POC ABG pCO2 32.2 L POC ABG pO2 128 H Sodium Potassium Chloride Carbon Dioxide BUN Creatinine Glucose POC Glucose 278 H Calcium Phosphorus Magnesium AST C-Reactive Protein Total Protein Albumin Lipase Vitamin B12 TSH Urine WBC (Auto) Urine Chloride Urine Total Protein Crossmatch 10/19/16 10/19/16 10/19/16 06:01 06:30 12:20 WBC RBC Hgb Hct MCV RDW Plt Count Lymph % (Auto) [place] % (Auto) [place] # Seg Neutrophils % Seg Neuts % (Manual) Lymphocytes % (Manual) Monocytes % (Manual) Seg Neutrophils # Seg Neutrophils # Man Lymphocytes # (Manual) Monocytes # (Manual) Eosinophils # (Manual) Basophils # (Manual) PT INR APTT Heparin Anti-Xa Level POC ABG pH POC ABG pCO2 POC ABG pO2 Sodium Potassium Chloride Carbon Dioxide 18 L BUN Creatinine 1.3 H Glucose 262 H POC Glucose 261 H 349 H Calcium 7.7 L Phosphorus 4.8 H D Magnesium AST C-Reactive Protein Total Protein Albumin Lipase Vitamin B12 TSH Urine WBC (Auto) Urine Chloride Urine Total Protein Crossmatch 10/19/16 10/20/16 10/20/16 16:48 00:17 05:20 WBC 22.5 H RBC 2.80 L Hgb 8.9 L Hct 28.3 L MCV 101 H RDW Plt Count Lymph % (Auto) [place] % (Auto) [place] # Seg Neutrophils % Seg Neuts % (Manual) Lymphocytes % (Manual) 10.0 L Monocytes % (Manual) Seg Neutrophils # Seg Neutrophils # Man 13.3 H Lymphocytes # (Manual) Monocytes # (Manual) 1.1 H Eosinophils # (Manual) 0.7 H Basophils # (Manual) PT INR APTT Heparin Anti-Xa Level POC ABG pH POC ABG pCO2 POC ABG pO2 Sodium Potassium Chloride Carbon Dioxide BUN Creatinine Glucose POC Glucose 248 H 346 H Calcium Phosphorus Magnesium AST C-Reactive Protein Total Protein Albumin Lipase Vitamin B12 TSH Urine WBC (Auto) Urine Chloride Urine Total Protein Crossmatch 10/20/16 10/20/16 10/20/16 05:20 05:20 06:05 WBC RBC Hgb Hct MCV RDW Plt Count Lymph % (Auto) [place] % (Auto) [place] # Seg Neutrophils % Seg Neuts % (Manual) Lymphocytes % (Manual) Monocytes % (Manual) Seg Neutrophils # Seg Neutrophils # Man Lymphocytes # (Manual) Monocytes # (Manual) Eosinophils # (Manual) Basophils # (Manual) PT INR APTT Heparin Anti-Xa Level 0.20 L POC ABG pH POC ABG pCO2 POC ABG pO2 Sodium Potassium Chloride Carbon Dioxide BUN 20 H Creatinine Glucose 374 H POC Glucose 337 H Calcium 8.3 L Phosphorus Magnesium AST C-Reactive Protein Total Protein Albumin Lipase Vitamin B12 TSH Urine WBC (Auto) Urine Chloride Urine Total Protein Crossmatch 10/20/16 10/20/16 10/20/16 11:49 13:59 17:56 WBC RBC Hgb Hct MCV RDW Plt Count Lymph % (Auto) [place] % (Auto) [place] # Seg Neutrophils % Seg Neuts % (Manual) Lymphocytes % (Manual) Monocytes % (Manual) Seg Neutrophils # Seg Neutrophils # Man Lymphocytes # (Manual) Monocytes # (Manual) Eosinophils # (Manual) Basophils # (Manual) PT INR APTT Heparin Anti-Xa Level 2.00 H POC ABG pH POC ABG pCO2 POC ABG pO2 Sodium Potassium Chloride Carbon Dioxide BUN Creatinine Glucose POC Glucose 305 H 362 H Calcium Phosphorus Magnesium AST C-Reactive Protein Total Protein Albumin Lipase Vitamin B12 TSH Urine WBC (Auto) Urine Chloride Urine Total Protein Crossmatch 10/20/16 10/21/16 10/21/16 23:52 05:00 05:49 WBC 22.9 H RBC 2.49 L Hgb 7.7 L Hct 25.6 L MCV 103 H RDW Plt Count Lymph % (Auto) [place] % (Auto) [place] # Seg Neutrophils % Seg Neuts % (Manual) 94.0 H Lymphocytes % (Manual) 1.0 L Monocytes % (Manual) Seg Neutrophils # Seg Neutrophils # Man 21.5 H Lymphocytes # (Manual) 0.2 L Monocytes # (Manual) 1.1 H Eosinophils # (Manual) Basophils # (Manual) PT INR APTT Heparin Anti-Xa Level POC ABG pH POC ABG pCO2 POC ABG pO2 Sodium Potassium Chloride Carbon Dioxide BUN Creatinine Glucose POC Glucose 252 H 180 H Calcium Phosphorus Magnesium AST C-Reactive Protein Total Protein Albumin Lipase Vitamin B12 TSH Urine WBC (Auto) Urine Chloride Urine Total Protein Crossmatch 10/21/16 10/21/16 10/21/16 11:47 11:49 14:10 WBC RBC Hgb Hct MCV RDW Plt Count Lymph % (Auto) [place] % (Auto) [place] # Seg Neutrophils % Seg Neuts % (Manual) Lymphocytes % (Manual) Monocytes % (Manual) Seg Neutrophils # Seg Neutrophils # Man Lymphocytes # (Manual) Monocytes # (Manual) Eosinophils # (Manual) Basophils # (Manual) PT INR APTT Heparin Anti-Xa Level POC ABG pH POC ABG pCO2 POC ABG pO2 Sodium Potassium Chloride Carbon Dioxide BUN Creatinine Glucose POC Glucose 50 L 56 L 140 H Calcium Phosphorus Magnesium AST C-Reactive Protein Total Protein Albumin Lipase Vitamin B12 TSH Urine WBC (Auto) Urine Chloride Urine Total Protein Crossmatch 10/21/16 10/21/16 10/22/16 18:24 Unknown 00:07 WBC RBC Hgb Hct MCV RDW Plt Count Lymph % (Auto) [place] % (Auto) [place] # Seg Neutrophils % Seg Neuts % (Manual) Lymphocytes % (Manual) Monocytes % (Manual) Seg Neutrophils # Seg Neutrophils # Man Lymphocytes # (Manual) Monocytes # (Manual) Eosinophils # (Manual) Basophils # (Manual) PT INR APTT Heparin Anti-Xa Level POC ABG pH POC ABG pCO2 POC ABG pO2 Sodium 150 H Potassium 3.1 L Chloride 112.4 H Carbon Dioxide BUN 25 H Creatinine 1.4 H Glucose POC Glucose 175 H 218 H Calcium 8.0 L Phosphorus Magnesium AST C-Reactive Protein Total Protein Albumin Lipase Vitamin B12 TSH Urine WBC (Auto) Urine Chloride Urine Total Protein Crossmatch 10/22/16 10/22/16 10/22/16 04:20 04:20 10:25 WBC 20.8 H RBC 2.37 L Hgb 7.5 L Hct 23.9 L MCV 101 H RDW Plt Count Lymph % (Auto) [place] % (Auto) [place] # Seg Neutrophils % Seg Neuts % (Manual) 89.0 H Lymphocytes % (Manual) 7.0 L Monocytes % (Manual) Seg Neutrophils # Seg Neutrophils # Man 18.5 H Lymphocytes # (Manual) Monocytes # (Manual) Eosinophils # (Manual) Basophils # (Manual) 0.2 H PT INR APTT Heparin Anti-Xa Level POC ABG pH POC ABG pCO2 POC ABG pO2 Sodium 148 H Potassium 2.9 L* Chloride 109.4 H Carbon Dioxide BUN 26 H Creatinine Glucose 140 H POC Glucose Calcium 7.5 L Phosphorus Magnesium AST C-Reactive Protein Total Protein Albumin Lipase Vitamin B12 976.8 H TSH Urine WBC (Auto) Urine Chloride Urine Total Protein Crossmatch 10/22/16 10/22/16 10/22/16 10:25 14:50 18:16 WBC RBC Hgb Hct MCV RDW Plt Count Lymph % (Auto) [place] % (Auto) [place] # Seg Neutrophils % Seg Neuts % (Manual) Lymphocytes % (Manual) Monocytes % (Manual) Seg Neutrophils # Seg Neutrophils # Man Lymphocytes # (Manual) Monocytes # (Manual) Eosinophils # (Manual) Basophils # (Manual) PT INR APTT Heparin Anti-Xa Level POC ABG pH POC ABG pCO2 POC ABG pO2 Sodium Potassium Chloride Carbon Dioxide BUN Creatinine Glucose POC Glucose 193 H Calcium Phosphorus Magnesium AST C-Reactive Protein Total Protein Albumin Lipase Vitamin B12 TSH 0.143 L 0.162 L Urine WBC (Auto) Urine Chloride Urine Total Protein Crossmatch 10/22/16 10/22/16 10/22/16 20:00 20:00 20:00 WBC 24.1 H RBC 2.58 L Hgb 8.2 L Hct 26.4 L MCV 102 H RDW Plt Count Lymph % (Auto) [place] % (Auto) [place] # Seg Neutrophils % Seg Neuts % (Manual) 74.0 H Lymphocytes % (Manual) 7.0 L Monocytes % (Manual) Seg Neutrophils # Seg Neutrophils # Man 17.8 H Lymphocytes # (Manual) Monocytes # (Manual) Eosinophils # (Manual) Basophils # (Manual) PT INR APTT Heparin Anti-Xa Level 1.92 H POC ABG pH POC ABG pCO2 POC ABG pO2 Sodium Potassium Chloride Carbon Dioxide BUN Creatinine Glucose POC Glucose Calcium Phosphorus Magnesium AST C-Reactive Protein Total Protein Albumin Lipase Vitamin B12 TSH Urine WBC (Auto) Urine Chloride Urine Total Protein Crossmatch See Detail 10/23/16 10/23/16 10/23/16 00:21 06:09 12:07 WBC RBC Hgb Hct MCV RDW Plt Count Lymph % (Auto) [place] % (Auto) [place] # Seg Neutrophils % Seg Neuts % (Manual) Lymphocytes % (Manual) Monocytes % (Manual) Seg Neutrophils # Seg Neutrophils # Man Lymphocytes # (Manual) Monocytes # (Manual) Eosinophils # (Manual) Basophils # (Manual) PT INR APTT Heparin Anti-Xa Level POC ABG pH POC ABG pCO2 POC ABG pO2 Sodium Potassium Chloride Carbon Dioxide BUN Creatinine Glucose POC Glucose 283 H 241 H 340 H Calcium Phosphorus Magnesium AST C-Reactive Protein Total Protein Albumin Lipase Vitamin B12 TSH Urine WBC (Auto) Urine Chloride Urine Total Protein Crossmatch 10/23/16 10/23/16 10/23/16 14:01 16:00 17:59 WBC RBC Hgb Hct MCV RDW Plt Count Lymph % (Auto) [place] % (Auto) [place] # Seg Neutrophils % Seg Neuts % (Manual) Lymphocytes % (Manual) Monocytes % (Manual) Seg Neutrophils # Seg Neutrophils # Man Lymphocytes # (Manual) Monocytes # (Manual) Eosinophils # (Manual) Basophils # (Manual) PT INR APTT Heparin Anti-Xa Level 0.19 L POC ABG pH POC ABG pCO2 32.4 L POC ABG pO2 Sodium Potassium Chloride Carbon Dioxide BUN Creatinine Glucose POC Glucose 245 H Calcium Phosphorus Magnesium AST C-Reactive Protein Total Protein Albumin Lipase Vitamin B12 TSH Urine WBC (Auto) Urine Chloride Urine Total Protein Crossmatch 10/23/16 10/23/16 10/23/16 22:55 Unknown Unknown WBC 22.6 H RBC 3.26 L Hgb Hct MCV RDW 17.1 H Plt Count Lymph % (Auto) [place] % (Auto) [place] # Seg Neutrophils % Seg Neuts % (Manual) Lymphocytes % (Manual) 11.0 L Monocytes % (Manual) Seg Neutrophils # Seg Neutrophils # Man 14.0 H Lymphocytes # (Manual) Monocytes # (Manual) Eosinophils # (Manual) Basophils # (Manual) PT INR APTT Heparin Anti-Xa Level 0.17 L 0.15 L POC ABG pH POC ABG pCO2 POC ABG pO2 Sodium Potassium Chloride Carbon Dioxide BUN Creatinine Glucose POC Glucose Calcium Phosphorus Magnesium AST C-Reactive Protein Total Protein Albumin Lipase Vitamin B12 TSH Urine WBC (Auto) Urine Chloride Urine Total Protein Crossmatch 10/23/16 10/24/16 10/24/16 Unknown 00:05 05:30 WBC RBC Hgb Hct MCV RDW Plt Count Lymph % (Auto) [place] % (Auto) [place] # Seg Neutrophils % Seg Neuts % (Manual) Lymphocytes % (Manual) Monocytes % (Manual) Seg Neutrophils # Seg Neutrophils # Man Lymphocytes # (Manual) Monocytes # (Manual) Eosinophils # (Manual) Basophils # (Manual) PT INR APTT Heparin Anti-Xa Level 0.13 L POC ABG pH POC ABG pCO2 POC ABG pO2 Sodium Potassium Chloride 111.2 H Carbon Dioxide 20 L BUN 25 H Creatinine Glucose 227 H POC Glucose 118 H Calcium 7.1 L Phosphorus Magnesium AST C-Reactive Protein Total Protein Albumin Lipase Vitamin B12 TSH Urine WBC (Auto) Urine Chloride Urine Total Protein Crossmatch 10/24/16 10/24/16 10/24/16 11:00 11:00 12:06 WBC 17.6 H RBC 2.92 L Hgb 9.2 L Hct 28.3 L MCV RDW 16.9 H Plt Count Lymph % (Auto) [place] % (Auto) [place] # Seg Neutrophils % Seg Neuts % (Manual) Lymphocytes % (Manual) Monocytes % (Manual) Seg Neutrophils # Seg Neutrophils # Man Lymphocytes # (Manual) Monocytes # (Manual) Eosinophils # (Manual) Basophils # (Manual) PT INR APTT Heparin Anti-Xa Level 0.27 L POC ABG pH POC ABG pCO2 POC ABG pO2 Sodium Potassium Chloride Carbon Dioxide BUN Creatinine Glucose POC Glucose 166 H Calcium Phosphorus Magnesium AST C-Reactive Protein Total Protein Albumin Lipase Vitamin B12 TSH Urine WBC (Auto) Urine Chloride Urine Total Protein Crossmatch 10/24/16 10/25/16 10/25/16 12:27 00:49 03:30 WBC RBC Hgb 8.8 L Hct 28.1 L MCV RDW Plt Count Lymph % (Auto) [place] % (Auto) [place] # Seg Neutrophils % Seg Neuts % (Manual) Lymphocytes % (Manual) Monocytes % (Manual) Seg Neutrophils # Seg Neutrophils # Man Lymphocytes # (Manual) Monocytes # (Manual) Eosinophils # (Manual) Basophils # (Manual) PT INR APTT Heparin Anti-Xa Level POC ABG pH POC ABG pCO2 33.9 L POC ABG pO2 Sodium Potassium Chloride Carbon Dioxide BUN Creatinine Glucose POC Glucose 121 H Calcium Phosphorus Magnesium AST C-Reactive Protein Total Protein Albumin Lipase Vitamin B12 TSH Urine WBC (Auto) Urine Chloride Urine Total Protein Crossmatch 10/25/16 10/25/16 10/25/16 09:49 12:10 19:25 WBC 21.1 H RBC 3.02 L Hgb 9.3 L Hct 28.9 L MCV RDW 16.3 H Plt Count Lymph % (Auto) [place] % (Auto) [place] # Seg Neutrophils % Seg Neuts % (Manual) 81.0 H Lymphocytes % (Manual) 9.0 L Monocytes % (Manual) Seg Neutrophils # Seg Neutrophils # Man 17.1 H Lymphocytes # (Manual) Monocytes # (Manual) Eosinophils # (Manual) Basophils # (Manual) PT INR APTT Heparin Anti-Xa Level POC ABG pH POC ABG pCO2 POC ABG pO2 Sodium Potassium Chloride Carbon Dioxide BUN Creatinine Glucose POC Glucose 158 H 151 H Calcium Phosphorus Magnesium AST C-Reactive Protein Total Protein Albumin Lipase Vitamin B12 TSH Urine WBC (Auto) Urine Chloride Urine Total Protein Crossmatch 10/26/16 10/26/16 10/26/16 00:20 01:09 05:02 WBC 22.2 H RBC 2.89 L Hgb 8.7 L Hct 27.8 L MCV RDW 16.4 H Plt Count Lymph % (Auto) [place] % (Auto) [place] # Seg Neutrophils % Seg Neuts % (Manual) Lymphocytes % (Manual) Monocytes % (Manual) Seg Neutrophils # Seg Neutrophils # Man Lymphocytes # (Manual) Monocytes # (Manual) Eosinophils # (Manual) Basophils # (Manual) PT INR APTT Heparin Anti-Xa Level POC ABG pH POC ABG pCO2 POC ABG pO2 Sodium Potassium Chloride Carbon Dioxide BUN Creatinine Glucose POC Glucose 44 L 112 H Calcium Phosphorus Magnesium AST C-Reactive Protein Total Protein Albumin Lipase Vitamin B12 TSH Urine WBC (Auto) Urine Chloride Urine Total Protein Crossmatch 10/26/16 10/26/16 10/26/16 05:02 12:11 12:14 WBC RBC Hgb Hct MCV RDW Plt Count Lymph % (Auto) [place] % (Auto) [place] # Seg Neutrophils % Seg Neuts % (Manual) Lymphocytes % (Manual) Monocytes % (Manual) Seg Neutrophils # Seg Neutrophils # Man Lymphocytes # (Manual) Monocytes # (Manual) Eosinophils # (Manual) Basophils # (Manual) PT INR APTT Heparin Anti-Xa Level POC ABG pH POC ABG pCO2 32.0 L POC ABG pO2 33 L Sodium Potassium 3.2 L D Chloride Carbon Dioxide 20 L BUN 24 H Creatinine Glucose 104 H POC Glucose 194 H Calcium 7.7 L Phosphorus Magnesium AST C-Reactive Protein Total Protein Albumin Lipase Vitamin B12 TSH Urine WBC (Auto) Urine Chloride Urine Total Protein Crossmatch 10/26/16 10/26/16 10/27/16 15:28 17:23 00:04 WBC RBC Hgb Hct MCV RDW Plt Count Lymph % (Auto) [place] % (Auto) [place] # Seg Neutrophils % Seg Neuts % (Manual) Lymphocytes % (Manual) Monocytes % (Manual) Seg Neutrophils # Seg Neutrophils # Man Lymphocytes # (Manual) Monocytes # (Manual) Eosinophils # (Manual) Basophils # (Manual) PT INR APTT Heparin Anti-Xa Level POC ABG pH POC ABG pCO2 33.7 L POC ABG pO2 Sodium Potassium Chloride Carbon Dioxide BUN Creatinine Glucose POC Glucose 181 H 230 H Calcium Phosphorus Magnesium AST C-Reactive Protein Total Protein Albumin Lipase Vitamin B12 TSH Urine WBC (Auto) Urine Chloride Urine Total Protein Crossmatch 10/27/16 10/27/16 10/27/16 05:15 05:15 05:38 WBC 25.5 H RBC 3.07 L Hgb 9.4 L Hct 30.1 L MCV 98 H RDW 16.4 H Plt Count 527 H Lymph % (Auto) [place] % (Auto) [place] # Seg Neutrophils % Seg Neuts % (Manual) Lymphocytes % (Manual) Monocytes % (Manual) Seg Neutrophils # Seg Neutrophils # Man Lymphocytes # (Manual) Monocytes # (Manual) Eosinophils # (Manual) Basophils # (Manual) PT INR APTT Heparin Anti-Xa Level POC ABG pH POC ABG pCO2 POC ABG pO2 Sodium Potassium Chloride Carbon Dioxide 19 L BUN 23 H Creatinine Glucose 160 H POC Glucose 168 H Calcium 8.0 L Phosphorus Magnesium AST C-Reactive Protein Total Protein Albumin Lipase Vitamin B12 TSH Urine WBC (Auto) Urine Chloride Urine Total Protein Crossmatch 10/27/16 10/27/16 10/27/16 11:59 18:35 23:48 WBC RBC Hgb Hct MCV RDW Plt Count Lymph % (Auto) [place] % (Auto) [place] # Seg Neutrophils % Seg Neuts % (Manual) Lymphocytes % (Manual) Monocytes % (Manual) Seg Neutrophils # Seg Neutrophils # Man Lymphocytes # (Manual) Monocytes # (Manual) Eosinophils # (Manual) Basophils # (Manual) PT INR APTT Heparin Anti-Xa Level POC ABG pH POC ABG pCO2 POC ABG pO2 Sodium Potassium Chloride Carbon Dioxide BUN Creatinine Glucose POC Glucose 197 H 318 H 316 H Calcium Phosphorus Magnesium AST C-Reactive Protein Total Protein Albumin Lipase Vitamin B12 TSH Urine WBC (Auto) Urine Chloride Urine Total Protein Crossmatch 10/28/16 10/28/16 10/28/16 03:13 04:10 04:10 WBC 18.8 H RBC 2.64 L Hgb 8.1 L Hct 26.1 L MCV 99 H RDW 16.2 H Plt Count 544 H Lymph % (Auto) [place] % (Auto) [place] # Seg Neutrophils % Seg Neuts % (Manual) Lymphocytes % (Manual) Monocytes % (Manual) Seg Neutrophils # Seg Neutrophils # Man Lymphocytes # (Manual) Monocytes # (Manual) Eosinophils # (Manual) Basophils # (Manual) PT INR APTT Heparin Anti-Xa Level POC ABG pH POC ABG pCO2 POC ABG pO2 Sodium Potassium Chloride Carbon Dioxide 21 L BUN 24 H Creatinine Glucose 302 H POC Glucose 304 H Calcium 7.7 L Phosphorus Magnesium AST C-Reactive Protein Total Protein Albumin Lipase Vitamin B12 TSH Urine WBC (Auto) Urine Chloride Urine Total Protein Crossmatch 10/28/16 10/28/16 10/28/16 04:10 12:36 18:27 WBC RBC Hgb Hct MCV RDW Plt Count Lymph % (Auto) [place] % (Auto) [place] # Seg Neutrophils % Seg Neuts % (Manual) Lymphocytes % (Manual) Monocytes % (Manual) Seg Neutrophils # Seg Neutrophils # Man Lymphocytes # (Manual) Monocytes # (Manual) Eosinophils # (Manual) Basophils # (Manual) PT INR APTT Heparin Anti-Xa Level 0.20 L POC ABG pH POC ABG pCO2 POC ABG pO2 Sodium Potassium Chloride Carbon Dioxide BUN Creatinine Glucose POC Glucose 205 H 339 H Calcium Phosphorus Magnesium AST C-Reactive Protein Total Protein Albumin Lipase Vitamin B12 TSH Urine WBC (Auto) Urine Chloride Urine Total Protein Crossmatch 10/29/16 10/29/16 10/29/16 01:05 06:19 09:30 WBC 20.3 H RBC 2.80 L Hgb 8.5 L Hct 26.7 L MCV RDW 15.4 H Plt Count 571 H Lymph % (Auto) [place] % (Auto) [place] # Seg Neutrophils % Seg Neuts % (Manual) 75.0 H Lymphocytes % (Manual) 4.0 L Monocytes % (Manual) Seg Neutrophils # Seg Neutrophils # Man 15.2 H Lymphocytes # (Manual) 0.8 L Monocytes # (Manual) Eosinophils # (Manual) Basophils # (Manual) PT INR APTT Heparin Anti-Xa Level POC ABG pH POC ABG pCO2 POC ABG pO2 Sodium Potassium Chloride Carbon Dioxide BUN Creatinine Glucose POC Glucose 275 H 179 H Calcium Phosphorus Magnesium AST C-Reactive Protein Total Protein Albumin Lipase Vitamin B12 TSH Urine WBC (Auto) Urine Chloride Urine Total Protein Crossmatch 10/29/16 10/29/16 10/29/16 11:46 15:18 17:55 WBC RBC Hgb Hct MCV RDW Plt Count Lymph % (Auto) [place] % (Auto) [place] # Seg Neutrophils % Seg Neuts % (Manual) Lymphocytes % (Manual) Monocytes % (Manual) Seg Neutrophils # Seg Neutrophils # Man Lymphocytes # (Manual) Monocytes # (Manual) Eosinophils # (Manual) Basophils # (Manual) PT INR APTT Heparin Anti-Xa Level 1.15 H POC ABG pH POC ABG pCO2 POC ABG pO2 Sodium Potassium Chloride Carbon Dioxide BUN Creatinine Glucose POC Glucose 122 H 255 H Calcium Phosphorus Magnesium AST C-Reactive Protein Total Protein Albumin Lipase Vitamin B12 TSH Urine WBC (Auto) Urine Chloride Urine Total Protein Crossmatch 10/30/16 10/30/16 10/30/16 00:10 05:30 05:30 WBC 19.8 H RBC 2.51 L Hgb 7.7 L Hct 24.1 L MCV RDW 15.5 H Plt Count 534 H Lymph % (Auto) [place] % (Auto) [place] # Seg Neutrophils % Seg Neuts % (Manual) Lymphocytes % (Manual) Monocytes % (Manual) Seg Neutrophils # Seg Neutrophils # Man Lymphocytes # (Manual) Monocytes # (Manual) Eosinophils # (Manual) Basophils # (Manual) PT INR APTT Heparin Anti-Xa Level POC ABG pH POC ABG pCO2 POC ABG pO2 Sodium Potassium Chloride Carbon Dioxide BUN Creatinine Glucose 211 H POC Glucose 202 H Calcium 7.4 L Phosphorus Magnesium AST C-Reactive Protein Total Protein Albumin Lipase Vitamin B12 TSH Urine WBC (Auto) Urine Chloride Urine Total Protein Crossmatch 10/30/16 10/30/16 10/30/16 06:32 12:51 17:47 WBC RBC Hgb Hct MCV RDW Plt Count Lymph % (Auto) [place] % (Auto) [place] # Seg Neutrophils % Seg Neuts % (Manual) Lymphocytes % (Manual) Monocytes % (Manual) Seg Neutrophils # Seg Neutrophils # Man Lymphocytes # (Manual) Monocytes # (Manual) Eosinophils # (Manual) Basophils # (Manual) PT INR APTT Heparin Anti-Xa Level POC ABG pH POC ABG pCO2 POC ABG pO2 Sodium Potassium Chloride Carbon Dioxide BUN Creatinine Glucose POC Glucose 207 H 218 H 169 H Calcium Phosphorus Magnesium AST C-Reactive Protein Total Protein Albumin Lipase Vitamin B12 TSH Urine WBC (Auto) Urine Chloride Urine Total Protein Crossmatch 10/30/16 10/31/16 10/31/16 23:59 05:25 11:21 WBC RBC Hgb Hct MCV RDW Plt Count Lymph % (Auto) [place] % (Auto) [place] # Seg Neutrophils % Seg Neuts % (Manual) Lymphocytes % (Manual) Monocytes % (Manual) Seg Neutrophils # Seg Neutrophils # Man Lymphocytes # (Manual) Monocytes # (Manual) Eosinophils # (Manual) Basophils # (Manual) PT INR APTT Heparin Anti-Xa Level POC ABG pH POC ABG pCO2 POC ABG pO2 Sodium Potassium Chloride Carbon Dioxide BUN Creatinine Glucose POC Glucose 138 H 127 H 132 H Calcium Phosphorus Magnesium AST C-Reactive Protein Total Protein Albumin Lipase Vitamin B12 TSH Urine WBC (Auto) Urine Chloride Urine Total Protein Crossmatch Allied health notes reviewed: RT
[2016-10-31] MEDS: REGLAN IV SCH ×3 (13:26→23:38)
--- NOTE | 2016-10-31 14:26 | Progress Note ---
Assessment and Plan Discussed with the family that operative intervention (consisting of revascularization and attempts at below-knee amputation) requires the patient to be stable as this could otherwise result in significant morbidity and possible mortality. She is scheduled for tracheostomy and gastrostomy tube placement by general surgery. Once this has been completed, then can consider timing of amputation and revascularization. Continues to be on heparin drip. Will continue to follow. Subjective Date of service: 10/31/16 Principal diagnosis: respiratory failure on mechanical ventilatory support, DKA Interval history: Does not follow commands. Right foot cool to ankle. Unable to assess motor or sensory function due to mental status. On heparin drip. Left foot warm. Objective - Constitutional Vitals: Vital Signs - 12hr 10/31/16 10/31/16 10/31/16 02:30 02:45 03:00 Temperature Pulse Rate 112 H 114 H 118 H Pulse Rate [ Apical] Pulse Rate [ From Monitor] Respiratory 13 15 18 Rate Blood Pressure 134/79 141/71 146/71 O2 Sat by Pulse 97 100 95 Oximetry 10/31/16 10/31/16 10/31/16 03:15 03:25 03:30 Temperature Pulse Rate 123 H 112 H 112 H Pulse Rate [ Apical] Pulse Rate [ From Monitor] Respiratory 11 L 20 Rate Blood Pressure 144/73 144/73 148/58 O2 Sat by Pulse 99 98 99 Oximetry 10/31/16 10/31/16 10/31/16 03:45 03:57 04:00 Temperature 99.8 F H Pulse Rate 116 H 117 H Pulse Rate [ 109 H Apical] Pulse Rate [ 109 H From Monitor] Respiratory 25 H 22 12 Rate Blood Pressure 137/66 148/64 O2 Sat by Pulse 98 98 99 Oximetry 10/31/16 10/31/16 10/31/16 04:15 04:30 04:45 Temperature Pulse Rate 109 H 105 H 104 H Pulse Rate [ Apical] Pulse Rate [ From Monitor] Respiratory 15 18 15 Rate Blood Pressure 138/66 138/66 126/57 O2 Sat by Pulse 98 100 99 Oximetry 10/31/16 10/31/16 10/31/16 05:00 05:15 05:30 Temperature Pulse Rate 98 H 97 H 98 H Pulse Rate [ Apical] Pulse Rate [ From Monitor] Respiratory 17 17 17 Rate Blood Pressure 119/50 121/53 110/56 O2 Sat by Pulse 100 100 100 Oximetry 10/31/16 10/31/16 10/31/16 05:46 06:00 06:15 Temperature Pulse Rate 103 H 97 H 103 H Pulse Rate [ Apical] Pulse Rate [ From Monitor] Respiratory 14 18 18 Rate Blood Pressure 118/51 115/53 107/52 O2 Sat by Pulse 100 100 99 Oximetry 10/31/16 10/31/16 10/31/16 06:20 06:30 06:45 Temperature Pulse Rate 100 H 94 H 92 H Pulse Rate [ Apical] Pulse Rate [ From Monitor] Respiratory 19 17 Rate Blood Pressure 125/82 115/53 105/61 O2 Sat by Pulse 100 100 Oximetry 10/31/16 10/31/16 10/31/16 07:00 07:15 07:30 Temperature Pulse Rate 90 92 H 92 H Pulse Rate [ Apical] Pulse Rate [ From Monitor] Respiratory 18 18 21 Rate Blood Pressure 113/53 119/57 116/52 O2 Sat by Pulse 100 99 99 Oximetry 10/31/16 10/31/16 10/31/16 07:45 07:59 08:00 Temperature 98.9 F Pulse Rate 96 H 100 H 99 H Pulse Rate [ Apical] Pulse Rate [ From Monitor] Respiratory 17 17 Rate Blood Pressure 123/59 123/59 123/59 O2 Sat by Pulse 99 96 100 Oximetry 10/31/16 10/31/16 10/31/16 08:10 08:15 08:30 Temperature Pulse Rate 99 H 98 H Pulse Rate [ 96 H Apical] Pulse Rate [ 96 H From Monitor] Respiratory 18 19 18 Rate Blood Pressure 129/53 115/52 O2 Sat by Pulse 99 100 100 Oximetry 10/31/16 10/31/16 10/31/16 08:45 09:00 09:15 Temperature Pulse Rate 100 H 101 H 104 H Pulse Rate [ Apical] Pulse Rate [ From Monitor] Respiratory 18 18 17 Rate Blood Pressure 119/64 129/52 116/59 O2 Sat by Pulse 100 100 100 Oximetry 10/31/16 10/31/16 10/31/16 09:30 09:45 10:00 Temperature Pulse Rate 104 H 106 H 105 H Pulse Rate [ Apical] Pulse Rate [ From Monitor] Respiratory 18 20 18 Rate Blood Pressure 123/58 129/55 123/54 O2 Sat by Pulse 96 96 97 Oximetry 10/31/16 10/31/16 10/31/16 10:15 10:30 10:38 Temperature Pulse Rate 108 H 105 H 98 H Pulse Rate [ Apical] Pulse Rate [ From Monitor] Respiratory 16 18 Rate Blood Pressure 124/52 122/55 O2 Sat by Pulse 100 98 96 Oximetry 10/31/16 10/31/16 10/31/16 10:45 11:00 11:15 Temperature Pulse Rate 98 H 99 H 96 H Pulse Rate [ Apical] Pulse Rate [ From Monitor] Respiratory 18 18 17 Rate Blood Pressure 108/46 115/52 121/55 O2 Sat by Pulse 99 97 Oximetry 10/31/16 10/31/16 10/31/16 11:30 11:45 12:00 Temperature 99.1 F Pulse Rate 94 H 96 H 95 H Pulse Rate [ 95 H Apical] Pulse Rate [ 95 H From Monitor] Respiratory 18 17 18 Rate Blood Pressure 122/57 122/57 128/59 O2 Sat by Pulse 99 99 98 Oximetry 10/31/16 13:25 Temperature Pulse Rate 103 H Pulse Rate [ Apical] Pulse Rate [ From Monitor] Respiratory Rate Blood Pressure 127/58 O2 Sat by Pulse Oximetry General appearance: Present: other (intubated) - EENT ENT: other (intubated) - Respiratory Respiratory effort: other (intubated) Extremities: normal temperature (left foot), normal color (left foot) Extremity abnormal: black (desiccated first and second digit of her right foot) , cold (right foot to ankle) - Psychiatric Psychiatric: other (intubated) - Labs CBC & Chem 7: 10/30/16 05:30 10/30/16 05:30 Labs: Abnormal lab results 10/30/16 10/30/16 10/30/16 Range/Units 12:51 17:47 23:59 POC Glucose 218 H 169 H 138 H (70-105) 10/31/16 10/31/16 Range/Units 05:25 11:21 POC Glucose 127 H 132 H (70-105)
--- NOTE | 2016-10-31 16:44 | Progress Note ---
Assessment and Plan Assessment and plan: 66-year-old woman who presented with lethargy and altered mental status she deteriorated and was intubated and in emergency room, she was managed for DKA and she also developed sepsis due to UTI and right lower extremity ischemia 1. Acute respiratory failure with hypercapnia Continue ventilator, failed weaning trial. will plan for Trach and Peg-this has been discussed with the family by the surgeon. I also discussed with her today was at bedside. Did discuss with the patient's daughter Saurav on and she understands and will like us to proceed with PEG and trach of also discussed with nursing staff to inform the surgeon. Also discussed the surgeon so they are awaiting 2. Diabetes DKA has now resolved, insulin adjusted. Continue SubQ insulin 3. Sepsis- Leukocytosis Suspected due to UTI, urine has only grown Paula, sputum cultures grew group B strep, continue broad-spectrum antibiotics, infectious disease input appreciated 4. 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 Family has been updated. We'll continue to attempt to see if below the knee can be done as salvaged. Vascular consult noted too ill for any surgical intervention, continue heparin drip 5. Hypokalemia replete IV-we'll also give magnesium to help improve this. 6. Toxic metabolic encephalopathy- improved. 7. LUCY- present on admissions. likely vasomotor . resolved 8. Tachycardia- continue BB will add cardizem, if no improvement will add cardiology consultation 9. Anemia-no gross evidence of GI bleed. Patient didn't have any material. Ultrasound of the renal done on October 13 was negative. We'll monitor closely. As patient is also on heparin drip. May require 1 unit packed red blood cell due to gradual trend down off hemoglobin we'll monitor and transfuse if less than 7 Given her multiple medical illnesses, her prognosis is quite poor Discussed with pill maker. [facility] EVAL insurance precluded transfer. Critical care time 31 minutes History Interval history: Patient seen and examined, no change in clinical condition. No further adverse events. Hospitalist Physical - Physical exam Narrative exam: VITAL SIGNS: Reviewed. GENERAL: The patient appeared well nourished and normally developed. Vital signs as documented. HEAD: No signs of head trauma. EYES: Pupils are equal. Extraocular motions intact. EARS: Hearing grossly intact. MOUTH: ETT NECK: No adenopathy, no JVD. CHEST: Chest with diminshed CARDIAC: Regular rate and rhythm. S1 and S2, without murmurs, gallops, or rubs. VASCULAR: trace Edema. Peripheral pulses not palpable at the right lower ext ABDOMEN: Soft, without detectable tenderness. No sign of distention. No rebound or guarding, and no masses palpated. Bowel Sounds normal. MUSCULOSKELETAL: Moves most joints except the right lower extremity. Extremities with cyanosis to right lower ext, right large toe. NEUROLOGIC EXAM: follows command. PSYCHIATRIC: unable to assess. SKIN: cold at the right lower ext from the knee down once - Constitutional Vitals: Temp Pulse Resp BP Pulse Ox 99.1 F 96 H 21 121/62 97 10/31/16 12:00 10/31/16 16:00 10/31/16 16:00 10/31/16 16:00 10/31/16 16:00 General appearance: Present: other (intubated) Results - Labs CBC & Chem 7: 10/30/16 05:30 10/30/16 05:30 Labs: Laboratory Last Values WBC 19.8 K/mm3 (4.5-11.0) H 10/30/16 05:30 RBC 2.51 M/mm3 (3.65-5.03) L 10/30/16 05:30 Hgb 7.7 gm/dl (10.1-14.3) L 10/30/16 05:30 Hct 24.1 % (30.3-42.9) L 10/30/16 05:30 MCV 96 fl (79-97) 10/30/16 05:30 MCH 31 pg (28-32) 10/30/16 05:30 MCHC 32 % (30-34) 10/30/16 05:30 RDW 15.5 % (13.2-15.2) H 10/30/16 05:30 Plt Count 534 K/mm3 (140-440) H 10/30/16 05:30 Lymph % (Auto) [employer] 10/21/16 05:00 Petroleum % (Auto) [employer]er 10/21/16 05:00 Eos % (Auto) [employer] 10/21/16 05:00 Baso % (Auto) [employer] 10/21/16 05:00 Lymph # [employer] 10/21/16 05:00 Petroleum # [employer]er 10/21/16 05:00 Eos # [employer]er 10/21/16 05:00 Baso # [employer]er 10/21/16 05:00 Add Manual Diff Complete 10/29/16 09:30 Total Counted 100 10/29/16 09:30 Seg Neutrophils % [employer]ocket [employer]er 10/21/16 05:00 Seg Neuts % (Manual) 75.0 % (40.0-70.0) H 10/29/16 09:30 Band Neutrophils % 14.0 % 10/29/16 09:30 Lymphocytes % (Manual) 4.0 % (13.4-35.0) L 10/29/16 09:30 Reactive Lymphs % (Man) 0 % 10/29/16 09:30 Monocytes % (Manual) 4.0 % (0.0-7.3) 10/29/16 09:30 Eosinophils % (Manual) 0 % (0.0-4.3) 10/29/16 09:30 Basophils % (Manual) 0 % (0.0-1.8) 10/29/16 09:30 Metamyelocytes % 1.0 % 10/29/16 09:30 Myelocytes % 2.0 % 10/29/16 09:30 Promyelocytes % 0 % 10/29/16 09:30 Blast Cells % 0 % 10/29/16 09:30 Nucleated RBC % Not Reportable 10/29/16 09:30 Seg Neutrophils # [employer] Socket As[employer]er 10/21/16 05:00 Seg Neutrophils # Man 15.2 K/mm3 (1.8-7.7) H 10/29/16 09:30 Band Neutrophils # 2.8 K/mm3 10/29/16 09:30 Lymphocytes # (Manual) 0.8 K/mm3 (1.2-5.4) L 10/29/16 09:30 Abs React Lymphs (Man) 0.0 K/mm3 10/29/16 09:30 Monocytes # (Manual) 0.8 K/mm3 (0.0-0.8) 10/29/16 09:30 Eosinophils # (Manual) 0.0 K/mm3 (0.0-0.4) 10/29/16 09:30 Basophils # (Manual) 0.0 K/mm3 (0.0-0.1) 10/29/16 09:30 Metamyelocytes # 0.2 K/mm3 10/29/16 09:30 Myelocytes # 0.4 K/mm3 10/29/16 09:30 Promyelocytes # 0.0 K/mm3 10/29/16 09:30 Blast Cells # 0.0 K/mm3 10/29/16 09:30 Pathologist Review 10/29/16 09:30 WBC Morphology Not Reportable 10/29/16 09:30 Hypersegmented Neuts Not Reportable 10/29/16 09:30 Hyposegmented Neuts Not Reportable 10/29/16 09:30 Hypogranular Neuts Not Reportable 10/29/16 09:30 Hypersegmented Polys TNR 10/17/16 07:08 Smudge Cells Not Reportable 10/29/16 09:30 Toxic Granulation Not Reportable 10/29/16 09:30 Toxic Vacuolation Not Reportable 10/29/16 09:30 Dohle Bodies Not Reportable 10/29/16 09:30 Pelger-Huet Anomaly Not Reportable 10/29/16 09:30 Alka Rods Not Reportable 10/29/16 09:30 Platelet Estimate Appears increased 10/29/16 09:30 Clumped Platelets Not Reportable 10/29/16 09:30 Plt Clumps, EDTA Not Reportable 10/29/16 09:30 Large Platelets Few 10/29/16 09:30 Giant Platelets Few 10/29/16 09:30 Platelet Satelliting Not Reportable 10/29/16 09:30 Plt Morphology Comment Not Reportable 10/29/16 09:30 RBC Morphology Not Reportable 10/29/16 09:30 Dimorphic RBCs Not Reportable 10/29/16 09:30 Polychromasia 1+ 10/29/16 09:30 Hypochromasia Few 10/29/16 09:30 Poikilocytosis Not Reportable 10/29/16 09:30 Basophilic Stippling TNR 10/17/16 07:08 Anisocytosis Not Reportable 10/29/16 09:30 Microcytosis Not Reportable 10/29/16 09:30 Macrocytosis Not Reportable 10/29/16 09:30 Spherocytes Not Reportable 10/29/16 09:30 Pappenheimer Bodies Not Reportable 10/29/16 09:30 Sickle Cells Not Reportable 10/29/16 09:30 Target Cells Not Reportable 10/29/16 09:30 Tear Drop Cells Not Reportable 10/29/16 09:30 Ovalocytes Not Reportable 10/29/16 09:30 Stomatocytes Rare 10/22/16 04:20 Helmet Cells Not Reportable 10/29/16 09:30 [place] Bodies Not Reportable 10/29/16 09:30 [place] Rings Not Reportable 10/29/16 09:30 Jeannette Cells Not Reportable 10/29/16 09:30 Bite Cells Not Reportable 10/29/16 09:30 Crenated Cell Not Reportable 10/29/16 09:30 Elliptocytes Not Reportable 10/29/16 09:30 Acanthocytes (Spur) Not Reportable 10/29/16 09:30 Rouleaux Not Reportable 10/29/16 09:30 Hemoglobin C Crystals Not Reportable 10/29/16 09:30 Schistocytes Not Reportable 10/29/16 09:30 Malaria parasites Not Reportable 10/29/16 09:30 David Bodies Not Reportable 10/29/16 09:30 Hem Pathologist Commnt Sent to pathology 10/29/16 09:30 PT 16.4 Sec. (12.2-14.9) H 10/17/16 16:07 INR 1.33 (0.87-1.13) H 10/17/16 16:07 APTT 38.8 Sec. (24.2-36.6) H 10/17/16 16:07 Heparin Anti-Xa Level 0.44 U.I./ml (0.3-0.7) 10/31/16 04:10 POC ABG pH 7.398 (7.35-7.45) 10/26/16 15:28 POC ABG pCO2 33.7 (35-45) L 10/26/16 15:28 POC ABG pO2 99 (80-105) 10/26/16 15:28 POC ABG HCO3 20.8 10/26/16 15:28 POC ABG Total CO2 22 10/26/16 15:28 POC ABG O2 Sat 98 10/26/16 15:28 POC ABG Base Excess -4 10/26/16 15:28 VBG pH 7.020 (7.320-7.420) L* 10/13/16 04:22 FiO2 25 % 10/26/16 15:28 Sodium 138 mmol/L (137-145) 10/30/16 05:30 Potassium 3.7 mmol/L (3.6-5.0) 10/30/16 05:30 Chloride 102.6 mmol/L (98-107) 10/30/16 05:30 Carbon Dioxide 24 mmol/L (22-30) 10/30/16 05:30 Anion Gap 15 mmol/L 10/30/16 05:30 BUN 15 mg/dL (7-17) 10/30/16 05:30 Creatinine 0.8 mg/dL (0.7-1.2) 10/30/16 05:30 Estimated GFR > 60 ml/min 10/30/16 05:30 BUN/Creatinine Ratio 18.75 % 10/30/16 05:30 Glucose 211 mg/dL (65-100) H 10/30/16 05:30 POC Glucose 132 (70-105) H 10/31/16 11:21 Osmolality 332 Mosm/kg 10/14/16 07:03 Lactic Acid 1.8 mmol/L (0.7-2.0) 10/14/16 07:03 Calcium 7.4 mg/dL (8.4-10.2) L 10/30/16 05:30 Phosphorus 2.7 mg/dL (2.5-4.5) D 10/21/16 Unknown Magnesium 1.8 mg/dL (1.7-2.3) 10/26/16 09:03 Total Bilirubin 0.5 mg/dL (0.1-1.2) 10/15/16 04:40 AST 79 units/L (5-40) H 10/15/16 04:40 ALT 27 units/L (7-56) 10/15/16 04:40 Alkaline Phosphatase 80 units/L (35-129) 10/15/16 04:40 Ammonia 35.0 umol/L (25-60) 10/13/16 05:40 Total Creatine Kinase 107 units/L (30-135) 10/13/16 04:22 CK-MB (CK-2) 3.1 ng/mL (0.0-4.0) 10/13/16 04:22 CK-MB (CK-2) Rel Index 2.8 (0-4) 10/13/16 04:22 Troponin T < 0.010 ng/mL (0.00-0.029) 10/14/16 18:55 C-Reactive Protein 10.50 mg/dL (0.00-1.30) H 10/13/16 16:14 Total Protein 5.5 g/dL (6.3-8.2) L 10/15/16 04:40 Albumin 3.0 g/dL (3.9-5) L 10/15/16 04:40 Albumin/Globulin Ratio 1.2 % 10/15/16 04:40 Amylase 57 units/L (27-131) 10/26/16 20:00 Lipase 58 units/L (13-60) 10/26/16 20:00 Vitamin B12 976.8 pg/mL (211-911) H 10/22/16 10:25 TSH 0.162 mlU/mL (0.270-4.200) L 10/22/16 14:50 Free T4 0.77 ng/dL (0.76-1.46) 10/22/16 14:50 Urine Color Yellow (Yellow) 10/15/16 11:05 Urine Turbidity Cloudy (Clear) 10/15/16 11:05 Urine pH 5.0 (5.0-7.0) 10/15/16 11:05 Ur Specific [place] 1.009 (1.003-1.030) 10/15/16 11:05 Urine Protein 30 mg/dl mg/dL (Negative) 10/15/16 11:05 Urine Glucose (UA) 150 mg/dL (Negative) 10/15/16 11:05 Urine Ketones Neg mg/dL (Negative) 10/15/16 11:05 Urine Blood Lg (Negative) 10/15/16 11:05 Urine Nitrite Neg (Negative) 10/15/16 11:05 Urine Bilirubin Neg (Negative) 10/15/16 11:05 Urine Urobilinogen < 2.0 mg/dL (<2.0) 10/15/16 11:05 Ur Leukocyte Esterase Neg (Negative) 10/15/16 11:05 Urine WBC (Auto) 7.0 /HPF (0.0-6.0) H 10/15/16 11:05 Urine RBC (Auto) 7.0 /HPF (0.0-6.0) 10/15/16 11:05 U Epithel Cells (Auto) 1.0 /HPF (0-13.0) 10/15/16 11:05 Urine Mucus Few /HPF 10/15/16 11:05 Urine Yeast (Budding) 2+ /HPF 10/15/16 11:05 Urine Osmolality 487 Mosm/kg 10/13/16 Unknown Urine Creatinine < 4.2 mg/dL (0.1-20.0) 10/13/16 Unknown Protein/Creatinin Ratio 0.00 10/13/16 Unknown Urine Sodium 10 mEq/L 10/13/16 Unknown Urine Potassium 1.00 mEq/L 10/13/16 Unknown Urine Chloride 10.0 mEq/L (110-250) L 10/13/16 Unknown Urine Total Protein < 4 mg/dL (5-11.8) L 10/13/16 Unknown Vancomycin Trough 17.7 ug/mL (5.0-20.0) 10/22/16 10:25 Ketones 107.3 mg/dL (0.2-2.8) H 10/13/16 04:22 Blood Type A POSITIVE 10/22/16 20:00 Antibody Screen Negative 10/22/16 20:00 Crossmatch See Detail 10/22/16 20:00
--- NOTE | 2016-10-31 18:18 | Progress Note ---
Assessment and Plan A/P: 1. The TRACH/PEG has been scheduled for 11/02. The heparin drip should be turned off at 5AM (procedure is scheduled for 10AM). Subjective Date of service: 10/31/16 Narrative: The patient remains intubated. Objective Vital Signs - 12hr 10/31/16 10/31/16 10/31/16 06:20 06:30 06:45 Temperature Pulse Rate 100 H 94 H 92 H Pulse Rate [ Apical] Pulse Rate [ From Monitor] Respiratory 19 17 Rate Blood Pressure 125/82 115/53 105/61 O2 Sat by Pulse 100 100 Oximetry 10/31/16 10/31/16 10/31/16 07:00 07:15 07:30 Temperature Pulse Rate 90 92 H 92 H Pulse Rate [ Apical] Pulse Rate [ From Monitor] Respiratory 18 18 21 Rate Blood Pressure 113/53 119/57 116/52 O2 Sat by Pulse 100 99 99 Oximetry 10/31/16 10/31/16 10/31/16 07:45 07:59 08:00 Temperature 98.9 F Pulse Rate 96 H 100 H 99 H Pulse Rate [ Apical] Pulse Rate [ From Monitor] Respiratory 17 17 Rate Blood Pressure 123/59 123/59 123/59 O2 Sat by Pulse 99 96 100 Oximetry 10/31/16 10/31/16 10/31/16 08:10 08:15 08:30 Temperature Pulse Rate 99 H 98 H Pulse Rate [ 96 H Apical] Pulse Rate [ 96 H From Monitor] Respiratory 18 19 18 Rate Blood Pressure 129/53 115/52 O2 Sat by Pulse 99 100 100 Oximetry 10/31/16 10/31/16 10/31/16 08:45 09:00 09:15 Temperature Pulse Rate 100 H 101 H 104 H Pulse Rate [ Apical] Pulse Rate [ From Monitor] Respiratory 18 18 17 Rate Blood Pressure 119/64 129/52 116/59 O2 Sat by Pulse 100 100 100 Oximetry 10/31/16 10/31/16 10/31/16 09:30 09:45 10:00 Temperature Pulse Rate 104 H 106 H 105 H Pulse Rate [ Apical] Pulse Rate [ From Monitor] Respiratory 18 20 18 Rate Blood Pressure 123/58 129/55 123/54 O2 Sat by Pulse 96 96 97 Oximetry 10/31/16 10/31/16 10/31/16 10:15 10:30 10:38 Temperature Pulse Rate 108 H 105 H 98 H Pulse Rate [ Apical] Pulse Rate [ From Monitor] Respiratory 16 18 Rate Blood Pressure 124/52 122/55 O2 Sat by Pulse 100 98 96 Oximetry 10/31/16 10/31/16 10/31/16 10:45 11:00 11:15 Temperature Pulse Rate 98 H 99 H 96 H Pulse Rate [ Apical] Pulse Rate [ From Monitor] Respiratory 18 18 17 Rate Blood Pressure 108/46 115/52 121/55 O2 Sat by Pulse 99 97 Oximetry 10/31/16 10/31/16 10/31/16 11:30 11:45 12:00 Temperature 99.1 F Pulse Rate 94 H 96 H 95 H Pulse Rate [ 95 H Apical] Pulse Rate [ 95 H From Monitor] Respiratory 18 17 18 Rate Blood Pressure 122/57 122/57 128/59 O2 Sat by Pulse 99 99 98 Oximetry 10/31/16 10/31/16 10/31/16 12:15 12:30 12:45 Temperature Pulse Rate 92 H 95 H 95 H Pulse Rate [ Apical] Pulse Rate [ From Monitor] Respiratory 18 18 16 Rate Blood Pressure 128/59 128/57 117/59 O2 Sat by Pulse 98 97 97 Oximetry 10/31/16 10/31/16 10/31/16 13:00 13:15 13:25 Temperature Pulse Rate 100 H 99 H 103 H Pulse Rate [ Apical] Pulse Rate [ From Monitor] Respiratory 15 18 Rate Blood Pressure 124/66 127/58 127/58 O2 Sat by Pulse 98 98 Oximetry 10/31/16 10/31/16 10/31/16 13:30 13:45 14:00 Temperature Pulse Rate 102 H 106 H 103 H Pulse Rate [ Apical] Pulse Rate [ From Monitor] Respiratory 15 16 16 Rate Blood Pressure 132/61 128/62 122/58 O2 Sat by Pulse 97 97 97 Oximetry 10/31/16 10/31/16 10/31/16 14:15 14:30 14:45 Temperature Pulse Rate 101 H 94 H 103 H Pulse Rate [ Apical] Pulse Rate [ From Monitor] Respiratory 19 18 22 Rate Blood Pressure 120/59 112/56 117/63 O2 Sat by Pulse 97 97 97 Oximetry 10/31/16 10/31/16 10/31/16 15:00 15:15 15:30 Temperature Pulse Rate 88 92 H 90 Pulse Rate [ Apical] Pulse Rate [ From Monitor] Respiratory 18 17 18 Rate Blood Pressure 107/54 116/57 117/55 O2 Sat by Pulse 98 96 97 Oximetry 10/31/16 10/31/16 10/31/16 15:45 16:00 16:15 Temperature 98.6 F Pulse Rate 91 H 96 H 91 H Pulse Rate [ 96 H Apical] Pulse Rate [ 96 H From Monitor] Respiratory 14 21 14 Rate Blood Pressure 115/55 121/62 115/53 O2 Sat by Pulse 97 97 98 Oximetry 10/31/16 10/31/16 10/31/16 16:30 16:45 17:00 Temperature Pulse Rate 87 88 91 H Pulse Rate [ Apical] Pulse Rate [ From Monitor] Respiratory 18 18 18 Rate Blood Pressure 112/53 114/59 115/55 O2 Sat by Pulse 96 98 97 Oximetry 10/31/16 10/31/16 10/31/16 17:15 17:30 17:45 Temperature Pulse Rate 92 H 93 H 98 H Pulse Rate [ Apical] Pulse Rate [ From Monitor] Respiratory 18 18 18 Rate Blood Pressure 113/55 120/55 124/62 O2 Sat by Pulse 98 98 100 Oximetry 10/31/16 18:06 Temperature Pulse Rate 90 Pulse Rate [ Apical] Pulse Rate [ From Monitor] Respiratory 17 Rate Blood Pressure O2 Sat by Pulse 100 Oximetry - Neck no masses, trachea midline - Abdomen soft, bowel sounds normal - Labs 10/30/16 05:30 10/30/16 05:30
--- NOTE | 2016-10-31 20:59 | Progress Note ---
Subjective Date of service: 10/31/16 Principal diagnosis: respiratory failure on mechanical ventilatory support, DKA Interval history: AWAKE. Afebrile. Vital signs - Temp 98.4 CHEST - GOOD [employer] ENTRY CVS - S1S2 ABD - BS_ LABS See lab section. ASSESSMENT 1. Sepsis 2. dka 3. resp failure 4. htn 5. clostridium difficile colitis 6. bilateral pneumonia 6. RIGHT LEG GANGRENE. RECOMMENDATION 1. cbc/bmp in am 2. BKA. Patient may not be weaned from vent before surgery. Objective - Constitutional Vitals: Vital Signs Temp Pulse Resp BP Pulse Ox 98.9 F 104 H 17 126/65 100 10/31/16 20:00 10/31/16 19:23 10/31/16 18:06 10/31/16 19:23 10/31/16 19:23 Temperature -Last 24 Hours Temperature 98.9 F Temperature 98.6 F Temperature 99.1 F Temperature 98.9 F Temperature 99.8 F Temperature 99.1 F - Labs CBC & Chem 7: 10/30/16 05:30 10/30/16 05:30 Labs: Abnormal lab results 10/30/16 10/30/16 10/30/16 Range/Units 12:51 17:47 23:59 POC Glucose 218 H 169 H 138 H (70-105) 10/31/16 10/31/16 Range/Units 05:25 11:21 POC Glucose 127 H 132 H (70-105)
[2016-10-31] MEDS: LEVAQUIN 750MG/150ML 750 MG/150 ML BAG IV SCH (22:06)
[2016-11-01] MEDS: CLEOCIN 600 MG/50 mL 600 MG/50 ML BAG IV SCH ×3 (06:21→22:51)
[2016-11-01] MEDS: FLAGYL PO SCH ×2 (06:23→14:07)
[2016-11-01] MEDS: REGLAN IV SCH ×2 (06:23→19:42)
[2016-11-01] MEDS: LOPRESSOR FEEDTUBE SCH ×2 (06:25→22:52)
[2016-11-01 07:01] LABS: Hematocrit 24.8 % (30.3-42.9); Hemoglobin 7.9 gm/dl (10.1-14.3); Mean Corpuscular HGB Conc 32 % (30-34); Mean Corpuscular Hemoglobin 31 pg (28-32); Mean Corpuscular Volume 99 fl (79-97); Platelet Count 569 K/mm3 (140-440); Red Blood Count 2.51 M/mm3 (3.65-5.03); Red Cell Distribution Width 16.1 % (13.2-15.2); White Blood Count 19.2 K/mm3 (4.5-11.0)
[2016-11-01 07:21] LABS: Alanine Aminotransferase 14 units/L (7-56); Albumin/Globulin Ratio 0.5 %; Alkaline Phosphatase 148 units/L (35-129); Anion Gap 23 mmol/L; BUN/Creatinine Ratio 11.11; Bilirubin,Total < 0.2 mg/dL (0.1-1.2); Blood Urea Nitrogen 10 mg/dL (7-17); Calcium 7.7 mg/dL (8.4-10.2); Carbon Dioxide 21 mmol/L (22-30); Chloride 103.3 mmol/L (98-107); Glucose 137 mg/dL (65-100); Potassium 3.5 mmol/L (3.6-5.0); Sodium 144 mmol/L (137-145); Total Protein 6.2 g/dL (6.3-8.2)
[2016-11-01] MEDS: PEPCID PO SCH ×2 (09:35→22:53)
--- NOTE | 2016-11-01 12:07 | Progress Note ---
Assessment and Plan - Patient Problems (1) Acute respiratory failure with hypercapnia Current Visit: Yes Status: Acute Plan to address problem: - continue aspiration precautions / VAP bundles - continue bronchodilators and pulmonary toilet - wean oxygen to keep sats > 94% - resume graded weaning at Psupp of 20 cmH2O - for trach and PEG today (2) Altered mental status Current Visit: Yes Status: Acute Qualifiers: Altered mental status type: A Coma depth: C Coma timing: C Plan to address problem: - no active seizures - following clinically - seen by neurology and will follow their recommendations - no seizures on EEG (3) LUCY (acute kidney injury) Current Visit: Yes Status: Acute Plan to address problem: - resolved - follow I's & O's (4) DKA (diabetic ketoacidoses) Current Visit: Yes Status: Acute Qualifiers: Diabetes mellitus type: D Diabetes mellitus complication detail: D Plan to address problem: - resolved - continue SSI (5) Sepsis Current Visit: No Status: Acute Qualifiers: Sepsis type: S Plan to address problem: - continue anti-infectives per ID recs - follow clinically - trend lactate and CRP prn (6) Discharge planning issues Current Visit: No Status: Acute Plan to address problem: ...remains critically ill on life sustaining treatments including MVS and at high risk for further deterioration including ...31' CCT Subjective Date of service: 11/01/16 Principal diagnosis: respiratory failure on mechanical ventilatory support, DKA Interval history: Seen and examined at bedside; 24 hour events reviewed; nursing and respiratory care staff consulted; no adverse overnight events reported to me; remains on MVS ; no emesis or overt aspiration; visited; no gross bleeding Objective Vital Signs - 12hr 11/01/16 11/01/16 11/01/16 00:15 00:30 00:45 Temperature Pulse Rate 87 89 96 H Pulse Rate [ Apical] Pulse Rate [ From Monitor] Respiratory 18 9 L 15 Rate Blood Pressure 125/60 127/60 131/67 O2 Sat by Pulse 97 98 98 Oximetry 11/01/16 11/01/16 11/01/16 01:00 01:15 01:30 Temperature Pulse Rate 97 H 93 H 97 H Pulse Rate [ Apical] Pulse Rate [ From Monitor] Respiratory 15 17 15 Rate Blood Pressure 131/67 131/67 138/61 O2 Sat by Pulse 97 100 98 Oximetry 11/01/16 11/01/16 11/01/16 01:45 02:00 02:15 Temperature Pulse Rate 97 H 97 H 98 H Pulse Rate [ Apical] Pulse Rate [ From Monitor] Respiratory 14 12 14 Rate Blood Pressure 141/68 138/66 144/65 O2 Sat by Pulse 97 98 97 Oximetry 11/01/16 11/01/16 11/01/16 02:30 02:45 03:01 Temperature Pulse Rate 103 H 97 H 109 H Pulse Rate [ Apical] Pulse Rate [ From Monitor] Respiratory 15 18 25 H Rate Blood Pressure 149/72 137/63 137/63 O2 Sat by Pulse 99 98 94 Oximetry 11/01/16 11/01/16 11/01/16 03:15 03:30 03:45 Temperature Pulse Rate 107 H 110 H 105 H Pulse Rate [ Apical] Pulse Rate [ From Monitor] Respiratory 16 13 18 Rate Blood Pressure 151/72 158/78 149/72 O2 Sat by Pulse 99 100 100 Oximetry 11/01/16 11/01/16 11/01/16 04:00 04:15 04:18 Temperature 99.6 F Pulse Rate 107 H 107 H 113 H Pulse Rate [ Apical] Pulse Rate [ From Monitor] Respiratory 16 22 Rate Blood Pressure 155/72 160/68 160/68 O2 Sat by Pulse 100 100 98 Oximetry 11/01/16 11/01/16 11/01/16 04:30 04:45 05:00 Temperature Pulse Rate 111 H 110 H 110 H Pulse Rate [ Apical] Pulse Rate [ From Monitor] Respiratory 24 17 20 Rate Blood Pressure 158/71 150/82 159/96 O2 Sat by Pulse 100 100 100 Oximetry 11/01/16 11/01/16 11/01/16 05:15 05:30 05:45 Temperature Pulse Rate 114 H 109 H 109 H Pulse Rate [ Apical] Pulse Rate [ From Monitor] Respiratory 16 19 19 Rate Blood Pressure 155/110 158/66 151/68 O2 Sat by Pulse 100 100 99 Oximetry 11/01/16 11/01/16 11/01/16 06:00 06:15 06:30 Temperature Pulse Rate 105 H 105 H 96 H Pulse Rate [ Apical] Pulse Rate [ From Monitor] Respiratory 19 19 18 Rate Blood Pressure 141/70 149/67 131/60 O2 Sat by Pulse 100 100 100 Oximetry 11/01/16 11/01/16 11/01/16 06:45 07:00 07:15 Temperature Pulse Rate 92 H 90 88 Pulse Rate [ Apical] Pulse Rate [ From Monitor] Respiratory 21 14 18 Rate Blood Pressure 131/60 124/58 122/55 O2 Sat by Pulse 100 100 100 Oximetry 11/01/16 11/01/16 11/01/16 07:30 07:45 08:00 Temperature 101 F H Pulse Rate 85 84 84 Pulse Rate [ Apical] Pulse Rate [ From Monitor] Respiratory 18 18 18 Rate Blood Pressure 122/55 119/55 123/56 O2 Sat by Pulse 100 100 100 Oximetry 11/01/16 11/01/16 11/01/16 08:15 08:30 08:35 Temperature Pulse Rate 83 100 H Pulse Rate [ 91 H Apical] Pulse Rate [ 91 H From Monitor] Respiratory 18 17 18 Rate Blood Pressure 123/57 134/63 O2 Sat by Pulse 100 100 100 Oximetry 11/01/16 11/01/16 11/01/16 08:45 09:00 09:15 Temperature Pulse Rate 105 H 106 H 105 H Pulse Rate [ Apical] Pulse Rate [ From Monitor] Respiratory 18 21 14 Rate Blood Pressure 134/63 157/64 146/64 O2 Sat by Pulse 100 100 99 Oximetry 11/01/16 11/01/16 11/01/16 09:30 09:45 10:00 Temperature Pulse Rate 109 H 106 H 106 H Pulse Rate [ Apical] Pulse Rate [ From Monitor] Respiratory 15 18 16 Rate Blood Pressure 140/73 134/63 144/62 O2 Sat by Pulse 100 99 100 Oximetry Constitutional: no acute distress, other (? delirium / dementia element) Eyes: non-icteric ENT: oropharynx moist Neck: supple, no lymphadenopathy Effort: mildly labored Ascultation: Bilateral: diminished breath sounds, rales (bases) Cardiovascular: regular rate and rhythm, other (tachycardia) Gastrointestinal: normoactive bowel sounds, soft, non-tender, non-distended Integumentary: normal Extremities: no cyanosis, no edema, no ischemia or petechiae, other (cold right foot with digital ischemia) Neurologic: non-focal exam (grossly), unable to assess Psychiatric: other (sedated) CBC and BMP: 11/05/16 02:30 11/05/16 02:30 ABG, PT/INR, D-dimer: ABG POC ABG pH 7.398 (7.35-7.45) 10/26/16 15:28 POC ABG pCO2 33.7 (35-45) L 10/26/16 15:28 POC ABG pO2 99 (80-105) 10/26/16 15:28 POC ABG HCO3 20.8 10/26/16 15:28 POC ABG Total CO2 22 10/26/16 15:28 POC ABG O2 Sat 98 10/26/16 15:28 PT/INR, D-dimer PT 16.4 Sec. (12.2-14.9) H 10/17/16 16:07 INR 1.33 (0.87-1.13) H 10/17/16 16:07 Abnormal lab findings: Abnormal Labs 10/13/16 10/13/16 10/13/16 06:38 06:38 07:23 WBC RBC Hgb Hct MCV RDW Plt Count Lymph % (Auto) [place] % (Auto) [place] # Seg Neutrophils % Seg Neuts % (Manual) Lymphocytes % (Manual) Monocytes % (Manual) Seg Neutrophils # Seg Neutrophils # Man Lymphocytes # (Manual) Monocytes # (Manual) Eosinophils # (Manual) Basophils # (Manual) PT INR APTT Heparin Anti-Xa Level POC ABG pH POC ABG pCO2 POC ABG pO2 Sodium Potassium 6.2 H* Chloride Carbon Dioxide 8 L* BUN 85 H Creatinine 2.8 H Glucose 602 H* POC Glucose 495 H Calcium 7.9 L Phosphorus 6.9 H D Magnesium 3.0 H AST Alkaline Phosphatase C-Reactive Protein Total Protein Albumin Lipase Vitamin B12 TSH Urine WBC (Auto) Urine Chloride Urine Total Protein Crossmatch 10/13/16 10/13/16 10/13/16 08:49 08:55 10:12 WBC RBC Hgb Hct MCV RDW Plt Count Lymph % (Auto) [place] % (Auto) [place] # Seg Neutrophils % Seg Neuts % (Manual) Lymphocytes % (Manual) Monocytes % (Manual) Seg Neutrophils # Seg Neutrophils # Man Lymphocytes # (Manual) Monocytes # (Manual) Eosinophils # (Manual) Basophils # (Manual) PT INR APTT Heparin Anti-Xa Level POC ABG pH POC ABG pCO2 POC ABG pO2 Sodium Potassium 5.6 H Chloride Carbon Dioxide 11 L BUN 77 H Creatinine 2.7 H Glucose 457 H POC Glucose > 500 H 424 H Calcium 8.0 L Phosphorus Magnesium AST Alkaline Phosphatase C-Reactive Protein Total Protein Albumin Lipase Vitamin B12 TSH Urine WBC (Auto) Urine Chloride Urine Total Protein Crossmatch 10/13/16 10/13/16 10/13/16 10:44 11:22 12:20 WBC RBC Hgb Hct MCV RDW Plt Count Lymph % (Auto) [place] % (Auto) [place] # Seg Neutrophils % Seg Neuts % (Manual) Lymphocytes % (Manual) Monocytes % (Manual) Seg Neutrophils # Seg Neutrophils # Man Lymphocytes # (Manual) Monocytes # (Manual) Eosinophils # (Manual) Basophils # (Manual) PT INR APTT Heparin Anti-Xa Level POC ABG pH POC ABG pCO2 POC ABG pO2 Sodium Potassium 5.4 H Chloride Carbon Dioxide 14 L BUN 72 H Creatinine 2.6 H Glucose 383 H POC Glucose 391 H 313 H Calcium 8.2 L Phosphorus Magnesium AST Alkaline Phosphatase C-Reactive Protein Total Protein Albumin Lipase Vitamin B12 TSH Urine WBC (Auto) Urine Chloride Urine Total Protein Crossmatch 10/13/16 10/13/16 10/13/16 13:32 14:44 15:57 WBC RBC Hgb Hct MCV RDW Plt Count Lymph % (Auto) [place] % (Auto) [place] # Seg Neutrophils % Seg Neuts % (Manual) Lymphocytes % (Manual) Monocytes % (Manual) Seg Neutrophils # Seg Neutrophils # Man Lymphocytes # (Manual) Monocytes # (Manual) Eosinophils # (Manual) Basophils # (Manual) PT INR APTT Heparin Anti-Xa Level POC ABG pH POC ABG pCO2 POC ABG pO2 Sodium Potassium Chloride Carbon Dioxide BUN Creatinine Glucose POC Glucose 296 H 210 H 190 H Calcium Phosphorus Magnesium AST Alkaline Phosphatase C-Reactive Protein Total Protein Albumin Lipase Vitamin B12 TSH Urine WBC (Auto) Urine Chloride Urine Total Protein Crossmatch 10/13/16 10/13/16 10/13/16 16:14 16:14 17:17 WBC RBC Hgb Hct MCV RDW Plt Count Lymph % (Auto) [place] % (Auto) [place] # Seg Neutrophils % Seg Neuts % (Manual) Lymphocytes % (Manual) Monocytes % (Manual) Seg Neutrophils # Seg Neutrophils # Man Lymphocytes # (Manual) Monocytes # (Manual) Eosinophils # (Manual) Basophils # (Manual) PT INR APTT Heparin Anti-Xa Level POC ABG pH POC ABG pCO2 POC ABG pO2 Sodium Potassium Chloride Carbon Dioxide 17 L BUN 58 H Creatinine 1.8 H Glucose 172 H POC Glucose 193 H Calcium 7.7 L Phosphorus Magnesium AST Alkaline Phosphatase C-Reactive Protein 10.50 H Total Protein Albumin Lipase Vitamin B12 TSH Urine WBC (Auto) Urine Chloride Urine Total Protein Crossmatch 10/13/16 10/13/16 10/13/16 17:55 18:32 19:41 WBC RBC Hgb Hct MCV RDW Plt Count Lymph % (Auto) [place] % (Auto) [place] # Seg Neutrophils % Seg Neuts % (Manual) Lymphocytes % (Manual) Monocytes % (Manual) Seg Neutrophils # Seg Neutrophils # Man Lymphocytes # (Manual) Monocytes # (Manual) Eosinophils # (Manual) Basophils # (Manual) PT INR APTT Heparin Anti-Xa Level POC ABG pH POC ABG pCO2 30.6 L POC ABG pO2 218 H Sodium Potassium Chloride Carbon Dioxide BUN Creatinine Glucose POC Glucose 192 H 177 H Calcium Phosphorus Magnesium AST Alkaline Phosphatase C-Reactive Protein Total Protein Albumin Lipase Vitamin B12 TSH Urine WBC (Auto) Urine Chloride Urine Total Protein Crossmatch 10/13/16 10/13/16 10/13/16 20:54 22:07 23:13 WBC RBC Hgb Hct MCV RDW Plt Count Lymph % (Auto) [place] % (Auto) [place] # Seg Neutrophils % Seg Neuts % (Manual) Lymphocytes % (Manual) Monocytes % (Manual) Seg Neutrophils # Seg Neutrophils # Man Lymphocytes # (Manual) Monocytes # (Manual) Eosinophils # (Manual) Basophils # (Manual) PT INR APTT Heparin Anti-Xa Level POC ABG pH POC ABG pCO2 POC ABG pO2 Sodium Potassium Chloride Carbon Dioxide BUN Creatinine Glucose POC Glucose 178 H 160 H 168 H Calcium Phosphorus Magnesium AST Alkaline Phosphatase C-Reactive Protein Total Protein Albumin Lipase Vitamin B12 TSH Urine WBC (Auto) Urine Chloride Urine Total Protein Crossmatch 10/13/16 10/13/16 10/14/16 23:25 Unknown 00:21 WBC RBC Hgb Hct MCV RDW Plt Count Lymph % (Auto) [place] % (Auto) [place] # Seg Neutrophils % Seg Neuts % (Manual) Lymphocytes % (Manual) Monocytes % (Manual) Seg Neutrophils # Seg Neutrophils # Man Lymphocytes # (Manual) Monocytes # (Manual) Eosinophils # (Manual) Basophils # (Manual) PT INR APTT Heparin Anti-Xa Level POC ABG pH POC ABG pCO2 POC ABG pO2 Sodium 148 H Potassium Chloride 114.6 H Carbon Dioxide 17 L BUN 56 H Creatinine 1.6 H Glucose 151 H POC Glucose 171 H Calcium 7.8 L Phosphorus Magnesium AST Alkaline Phosphatase C-Reactive Protein Total Protein Albumin Lipase Vitamin B12 TSH Urine WBC (Auto) Urine Chloride 10.0 L Urine Total Protein < 4 L Crossmatch 10/14/16 10/14/16 10/14/16 01:22 02:29 03:30 WBC RBC Hgb Hct MCV RDW Plt Count Lymph % (Auto) [place] % (Auto) [place] # Seg Neutrophils % Seg Neuts % (Manual) Lymphocytes % (Manual) Monocytes % (Manual) Seg Neutrophils # Seg Neutrophils # Man Lymphocytes # (Manual) Monocytes # (Manual) Eosinophils # (Manual) Basophils # (Manual) PT INR APTT Heparin Anti-Xa Level POC ABG pH POC ABG pCO2 POC ABG pO2 Sodium Potassium Chloride Carbon Dioxide BUN Creatinine Glucose POC Glucose 144 H 136 H 143 H Calcium Phosphorus Magnesium AST Alkaline Phosphatase C-Reactive Protein Total Protein Albumin Lipase Vitamin B12 TSH Urine WBC (Auto) Urine Chloride Urine Total Protein Crossmatch 10/14/16 10/14/16 10/14/16 04:28 05:16 05:44 WBC RBC Hgb Hct MCV RDW Plt Count Lymph % (Auto) [place] % (Auto) [place] # Seg Neutrophils % Seg Neuts % (Manual) Lymphocytes % (Manual) Monocytes % (Manual) Seg Neutrophils # Seg Neutrophils # Man Lymphocytes # (Manual) Monocytes # (Manual) Eosinophils # (Manual) Basophils # (Manual) PT INR APTT Heparin Anti-Xa Level POC ABG pH POC ABG pCO2 28.2 L POC ABG pO2 125 H Sodium Potassium Chloride Carbon Dioxide BUN Creatinine Glucose POC Glucose 133 H 160 H Calcium Phosphorus Magnesium AST Alkaline Phosphatase C-Reactive Protein Total Protein Albumin Lipase Vitamin B12 TSH Urine WBC (Auto) Urine Chloride Urine Total Protein Crossmatch 10/14/16 10/14/16 10/14/16 06:12 06:45 07:03 WBC RBC Hgb Hct MCV RDW Plt Count Lymph % (Auto) [place] % (Auto) [place] # Seg Neutrophils % Seg Neuts % (Manual) Lymphocytes % (Manual) Monocytes % (Manual) Seg Neutrophils # Seg Neutrophils # Man Lymphocytes # (Manual) Monocytes # (Manual) Eosinophils # (Manual) Basophils # (Manual) PT INR APTT Heparin Anti-Xa Level POC ABG pH POC ABG pCO2 POC ABG pO2 Sodium 149 H Potassium Chloride 115.4 H Carbon Dioxide 17 L BUN 45 H Creatinine 1.5 H Glucose 139 H POC Glucose 149 H Calcium 7.4 L Phosphorus 1.0 L D Magnesium AST Alkaline Phosphatase C-Reactive Protein Total Protein Albumin Lipase Vitamin B12 TSH Urine WBC (Auto) Urine Chloride Urine Total Protein Crossmatch 10/14/16 10/14/16 10/14/16 07:03 08:02 09:16 WBC RBC Hgb Hct MCV RDW Plt Count Lymph % (Auto) [place] % (Auto) [place] # Seg Neutrophils % Seg Neuts % (Manual) Lymphocytes % (Manual) Monocytes % (Manual) Seg Neutrophils # Seg Neutrophils # Man Lymphocytes # (Manual) Monocytes # (Manual) Eosinophils # (Manual) Basophils # (Manual) PT INR APTT Heparin Anti-Xa Level POC ABG pH POC ABG pCO2 POC ABG pO2 Sodium Potassium Chloride Carbon Dioxide BUN Creatinine Glucose POC Glucose 156 H 158 H Calcium Phosphorus Magnesium AST Alkaline Phosphatase C-Reactive Protein Total Protein Albumin Lipase 738 H Vitamin B12 TSH Urine WBC (Auto) Urine Chloride Urine Total Protein Crossmatch 10/14/16 10/14/16 10/14/16 10:26 11:03 11:57 WBC RBC Hgb Hct MCV RDW Plt Count Lymph % (Auto) [place] % (Auto) [place] # Seg Neutrophils % Seg Neuts % (Manual) Lymphocytes % (Manual) Monocytes % (Manual) Seg Neutrophils # Seg Neutrophils # Man Lymphocytes # (Manual) Monocytes # (Manual) Eosinophils # (Manual) Basophils # (Manual) PT INR APTT Heparin Anti-Xa Level POC ABG pH 7.198 L POC ABG pCO2 47.5 H POC ABG pO2 Sodium Potassium Chloride Carbon Dioxide BUN Creatinine Glucose POC Glucose 174 H 189 H Calcium Phosphorus Magnesium AST Alkaline Phosphatase C-Reactive Protein Total Protein Albumin Lipase Vitamin B12 TSH Urine WBC (Auto) Urine Chloride Urine Total Protein Crossmatch 10/14/16 10/14/16 10/14/16 12:02 12:02 13:11 WBC 13.4 H RBC 3.60 L Hgb Hct MCV 98 H D RDW 13.1 L Plt Count Lymph % (Auto) [place] % (Auto) [place] # Seg Neutrophils % Seg Neuts % (Manual) Lymphocytes % (Manual) Monocytes % (Manual) Seg Neutrophils # Seg Neutrophils # Man Lymphocytes # (Manual) Monocytes # (Manual) Eosinophils # (Manual) Basophils # (Manual) PT INR APTT Heparin Anti-Xa Level POC ABG pH POC ABG pCO2 POC ABG pO2 Sodium Potassium Chloride 110.7 H Carbon Dioxide 19 L BUN 38 H Creatinine 1.4 H Glucose 182 H POC Glucose 173 H Calcium 7.5 L Phosphorus Magnesium AST Alkaline Phosphatase C-Reactive Protein Total Protein Albumin Lipase Vitamin B12 TSH Urine WBC (Auto) Urine Chloride Urine Total Protein Crossmatch 10/14/16 10/14/16 10/14/16 14:24 15:31 16:36 WBC RBC Hgb Hct MCV RDW Plt Count Lymph % (Auto) [place] % (Auto) [place] # Seg Neutrophils % Seg Neuts % (Manual) Lymphocytes % (Manual) Monocytes % (Manual) Seg Neutrophils # Seg Neutrophils # Man Lymphocytes # (Manual) Monocytes # (Manual) Eosinophils # (Manual) Basophils # (Manual) PT INR APTT Heparin Anti-Xa Level POC ABG pH POC ABG pCO2 POC ABG pO2 Sodium Potassium Chloride Carbon Dioxide BUN Creatinine Glucose POC Glucose 123 H 124 H 156 H Calcium Phosphorus Magnesium AST Alkaline Phosphatase C-Reactive Protein Total Protein Albumin Lipase Vitamin B12 TSH Urine WBC (Auto) Urine Chloride Urine Total Protein Crossmatch 10/14/16 10/14/16 10/14/16 17:43 19:00 20:08 WBC RBC Hgb Hct MCV RDW Plt Count Lymph % (Auto) [place] % (Auto) [place] # Seg Neutrophils % Seg Neuts % (Manual) Lymphocytes % (Manual) Monocytes % (Manual) Seg Neutrophils # Seg Neutrophils # Man Lymphocytes # (Manual) Monocytes # (Manual) Eosinophils # (Manual) Basophils # (Manual) PT INR APTT Heparin Anti-Xa Level POC ABG pH POC ABG pCO2 POC ABG pO2 Sodium Potassium Chloride Carbon Dioxide BUN Creatinine Glucose POC Glucose 154 H 123 H 138 H Calcium Phosphorus Magnesium AST Alkaline Phosphatase C-Reactive Protein Total Protein Albumin Lipase Vitamin B12 TSH Urine WBC (Auto) Urine Chloride Urine Total Protein Crossmatch 10/14/16 10/14/16 10/14/16 21:17 22:25 23:37 WBC RBC Hgb Hct MCV RDW Plt Count Lymph % (Auto) [place] % (Auto) [place] # Seg Neutrophils % Seg Neuts % (Manual) Lymphocytes % (Manual) Monocytes % (Manual) Seg Neutrophils # Seg Neutrophils # Man Lymphocytes # (Manual) Monocytes # (Manual) Eosinophils # (Manual) Basophils # (Manual) PT INR APTT Heparin Anti-Xa Level POC ABG pH POC ABG pCO2 POC ABG pO2 Sodium Potassium Chloride Carbon Dioxide BUN Creatinine Glucose POC Glucose 148 H 132 H 137 H Calcium Phosphorus Magnesium AST Alkaline Phosphatase C-Reactive Protein Total Protein Albumin Lipase Vitamin B12 TSH Urine WBC (Auto) Urine Chloride Urine Total Protein Crossmatch 10/15/16 10/15/16 10/15/16 00:49 01:53 03:06 WBC RBC Hgb Hct MCV RDW Plt Count Lymph % (Auto) [place] % (Auto) [place] # Seg Neutrophils % Seg Neuts % (Manual) Lymphocytes % (Manual) Monocytes % (Manual) Seg Neutrophils # Seg Neutrophils # Man Lymphocytes # (Manual) Monocytes # (Manual) Eosinophils # (Manual) Basophils # (Manual) PT INR APTT Heparin Anti-Xa Level POC ABG pH POC ABG pCO2 POC ABG pO2 Sodium Potassium Chloride Carbon Dioxide BUN Creatinine Glucose POC Glucose 132 H 134 H 134 H Calcium Phosphorus Magnesium AST Alkaline Phosphatase C-Reactive Protein Total Protein Albumin Lipase Vitamin B12 TSH Urine WBC (Auto) Urine Chloride Urine Total Protein Crossmatch 10/15/16 10/15/16 10/15/16 04:40 04:46 06:21 WBC RBC Hgb Hct MCV RDW Plt Count Lymph % (Auto) [place] % (Auto) [place] # Seg Neutrophils % Seg Neuts % (Manual) Lymphocytes % (Manual) Monocytes % (Manual) Seg Neutrophils # Seg Neutrophils # Man Lymphocytes # (Manual) Monocytes # (Manual) Eosinophils # (Manual) Basophils # (Manual) PT INR APTT Heparin Anti-Xa Level POC ABG pH POC ABG pCO2 30.7 L POC ABG pO2 108 H Sodium Potassium Chloride 109.0 H Carbon Dioxide 17 L BUN 27 H Creatinine Glucose 124 H POC Glucose 160 H Calcium 7.5 L Phosphorus Magnesium AST 79 H Alkaline Phosphatase C-Reactive Protein Total Protein 5.5 L Albumin 3.0 L Lipase Vitamin B12 TSH Urine WBC (Auto) Urine Chloride Urine Total Protein Crossmatch 10/15/16 10/15/16 10/15/16 07:12 08:01 09:03 WBC RBC Hgb Hct MCV RDW Plt Count Lymph % (Auto) [place] % (Auto) [place] # Seg Neutrophils % Seg Neuts % (Manual) Lymphocytes % (Manual) Monocytes % (Manual) Seg Neutrophils # Seg Neutrophils # Man Lymphocytes # (Manual) Monocytes # (Manual) Eosinophils # (Manual) Basophils # (Manual) PT INR APTT Heparin Anti-Xa Level POC ABG pH POC ABG pCO2 POC ABG pO2 Sodium Potassium Chloride Carbon Dioxide BUN Creatinine Glucose POC Glucose 179 H 187 H 165 H Calcium Phosphorus Magnesium AST Alkaline Phosphatase C-Reactive Protein Total Protein Albumin Lipase Vitamin B12 TSH Urine WBC (Auto) Urine Chloride Urine Total Protein Crossmatch 10/15/16 10/15/16 10/15/16 10:06 10:06 10:07 WBC 12.1 H RBC 3.01 L Hgb 9.7 L Hct 29.6 L MCV 98 H RDW Plt Count 129 L Lymph % (Auto) [place] % (Auto) [place] # Seg Neutrophils % Seg Neuts % (Manual) Lymphocytes % (Manual) Monocytes % (Manual) Seg Neutrophils # Seg Neutrophils # Man Lymphocytes # (Manual) Monocytes # (Manual) Eosinophils # (Manual) Basophils # (Manual) PT INR APTT Heparin Anti-Xa Level POC ABG pH POC ABG pCO2 POC ABG pO2 Sodium Potassium 3.2 L D Chloride 109.6 H Carbon Dioxide 18 L BUN 22 H Creatinine Glucose 127 H POC Glucose 147 H Calcium 7.0 L Phosphorus Magnesium AST Alkaline Phosphatase C-Reactive Protein Total Protein Albumin Lipase Vitamin B12 TSH Urine WBC (Auto) Urine Chloride Urine Total Protein Crossmatch 10/15/16 10/15/16 10/15/16 11:05 11:06 11:57 WBC RBC Hgb Hct MCV RDW Plt Count Lymph % (Auto) [place] % (Auto) [place] # Seg Neutrophils % Seg Neuts % (Manual) Lymphocytes % (Manual) Monocytes % (Manual) Seg Neutrophils # Seg Neutrophils # Man Lymphocytes # (Manual) Monocytes # (Manual) Eosinophils # (Manual) Basophils # (Manual) PT INR APTT Heparin Anti-Xa Level POC ABG pH 7.305 L POC ABG pCO2 POC ABG pO2 Sodium Potassium Chloride Carbon Dioxide BUN Creatinine Glucose POC Glucose 145 H Calcium Phosphorus Magnesium AST Alkaline Phosphatase C-Reactive Protein Total Protein Albumin Lipase Vitamin B12 TSH Urine WBC (Auto) 7.0 H Urine Chloride Urine Total Protein Crossmatch 10/15/16 10/15/16 10/15/16 12:04 13:59 15:24 WBC RBC Hgb Hct MCV RDW Plt Count Lymph % (Auto) [place] % (Auto) [place] # Seg Neutrophils % Seg Neuts % (Manual) Lymphocytes % (Manual) Monocytes % (Manual) Seg Neutrophils # Seg Neutrophils # Man Lymphocytes # (Manual) Monocytes # (Manual) Eosinophils # (Manual) Basophils # (Manual) PT INR APTT Heparin Anti-Xa Level POC ABG pH POC ABG pCO2 POC ABG pO2 Sodium Potassium Chloride Carbon Dioxide BUN Creatinine Glucose POC Glucose 123 H 147 H 153 H Calcium Phosphorus Magnesium AST Alkaline Phosphatase C-Reactive Protein Total Protein Albumin Lipase Vitamin B12 TSH Urine WBC (Auto) Urine Chloride Urine Total Protein Crossmatch 10/15/16 10/15/16 10/15/16 16:30 17:34 18:30 WBC RBC Hgb Hct MCV RDW Plt Count Lymph % (Auto) [place] % (Auto) [place] # Seg Neutrophils % Seg Neuts % (Manual) Lymphocytes % (Manual) Monocytes % (Manual) Seg Neutrophils # Seg Neutrophils # Man Lymphocytes # (Manual) Monocytes # (Manual) Eosinophils # (Manual) Basophils # (Manual) PT INR APTT Heparin Anti-Xa Level POC ABG pH POC ABG pCO2 POC ABG pO2 Sodium Potassium Chloride Carbon Dioxide BUN Creatinine Glucose POC Glucose 223 H 236 H 164 H Calcium Phosphorus Magnesium AST Alkaline Phosphatase C-Reactive Protein Total Protein Albumin Lipase Vitamin B12 TSH Urine WBC (Auto) Urine Chloride Urine Total Protein Crossmatch 10/15/16 10/15/16 10/15/16 19:14 20:31 21:23 WBC RBC Hgb Hct MCV RDW Plt Count Lymph % (Auto) [place] % (Auto) [place] # Seg Neutrophils % Seg Neuts % (Manual) Lymphocytes % (Manual) Monocytes % (Manual) Seg Neutrophils # Seg Neutrophils # Man Lymphocytes # (Manual) Monocytes # (Manual) Eosinophils # (Manual) Basophils # (Manual) PT INR APTT Heparin Anti-Xa Level POC ABG pH POC ABG pCO2 POC ABG pO2 Sodium Potassium Chloride Carbon Dioxide BUN Creatinine Glucose POC Glucose 138 H 158 H 158 H Calcium Phosphorus Magnesium AST Alkaline Phosphatase C-Reactive Protein Total Protein Albumin Lipase Vitamin B12 TSH Urine WBC (Auto) Urine Chloride Urine Total Protein Crossmatch 10/15/16 10/15/16 10/16/16 22:04 22:57 00:11 WBC RBC Hgb Hct MCV RDW Plt Count Lymph % (Auto) [place] % (Auto) [place] # Seg Neutrophils % Seg Neuts % (Manual) Lymphocytes % (Manual) Monocytes % (Manual) Seg Neutrophils # Seg Neutrophils # Man Lymphocytes # (Manual) Monocytes # (Manual) Eosinophils # (Manual) Basophils # (Manual) PT INR APTT Heparin Anti-Xa Level POC ABG pH POC ABG pCO2 POC ABG pO2 Sodium Potassium Chloride Carbon Dioxide BUN Creatinine Glucose POC Glucose 168 H 213 H 166 H Calcium Phosphorus Magnesium AST Alkaline Phosphatase C-Reactive Protein Total Protein Albumin Lipase Vitamin B12 TSH Urine WBC (Auto) Urine Chloride Urine Total Protein Crossmatch 10/16/16 10/16/16 10/16/16 01:16 02:32 03:38 WBC RBC Hgb Hct MCV RDW Plt Count Lymph % (Auto) [place] % (Auto) [place] # Seg Neutrophils % Seg Neuts % (Manual) Lymphocytes % (Manual) Monocytes % (Manual) Seg Neutrophils # Seg Neutrophils # Man Lymphocytes # (Manual) Monocytes # (Manual) Eosinophils # (Manual) Basophils # (Manual) PT INR APTT Heparin Anti-Xa Level POC ABG pH POC ABG pCO2 POC ABG pO2 Sodium Potassium Chloride Carbon Dioxide BUN Creatinine Glucose POC Glucose 171 H 164 H 147 H Calcium Phosphorus Magnesium AST Alkaline Phosphatase C-Reactive Protein Total Protein Albumin Lipase Vitamin B12 TSH Urine WBC (Auto) Urine Chloride Urine Total Protein Crossmatch 10/16/16 10/16/16 10/16/16 04:14 04:14 04:49 WBC RBC Hgb Hct MCV RDW Plt Count Lymph % (Auto) [place] % (Auto) [place] # Seg Neutrophils % Seg Neuts % (Manual) Lymphocytes % (Manual) Monocytes % (Manual) Seg Neutrophils # Seg Neutrophils # Man Lymphocytes # (Manual) Monocytes # (Manual) Eosinophils # (Manual) Basophils # (Manual) PT INR APTT Heparin Anti-Xa Level POC ABG pH POC ABG pCO2 POC ABG pO2 Sodium 147 H Potassium Chloride 110.9 H Carbon Dioxide 19 L BUN Creatinine Glucose 139 H POC Glucose 144 H Calcium 7.3 L Phosphorus 2.3 L Magnesium AST Alkaline Phosphatase C-Reactive Protein Total Protein Albumin Lipase 143 H Vitamin B12 TSH Urine WBC (Auto) Urine Chloride Urine Total Protein Crossmatch 10/16/16 10/16/16 10/16/16 05:03 05:41 05:58 WBC 16.5 H RBC 3.36 L Hgb Hct MCV 98 H RDW 13.1 L Plt Count Lymph % (Auto) 8.5 L [place] % (Auto) 7.6 H [place] # 1.3 H Seg Neutrophils % 83.3 H Seg Neuts % (Manual) Lymphocytes % (Manual) Monocytes % (Manual) Seg Neutrophils # 13.8 H Seg Neutrophils # Man Lymphocytes # (Manual) Monocytes # (Manual) Eosinophils # (Manual) Basophils # (Manual) PT INR APTT Heparin Anti-Xa Level POC ABG pH POC ABG pCO2 30.7 L POC ABG pO2 128 H Sodium Potassium Chloride Carbon Dioxide BUN Creatinine Glucose POC Glucose 131 H Calcium Phosphorus Magnesium AST Alkaline Phosphatase C-Reactive Protein Total Protein Albumin Lipase Vitamin B12 TSH Urine WBC (Auto) Urine Chloride Urine Total Protein Crossmatch 10/16/16 10/16/16 10/16/16 06:32 09:27 09:35 WBC RBC Hgb Hct MCV RDW Plt Count Lymph % (Auto) [place] % (Auto) [place] # Seg Neutrophils % Seg Neuts % (Manual) Lymphocytes % (Manual) Monocytes % (Manual) Seg Neutrophils # Seg Neutrophils # Man Lymphocytes # (Manual) Monocytes # (Manual) Eosinophils # (Manual) Basophils # (Manual) PT INR APTT Heparin Anti-Xa Level POC ABG pH POC ABG pCO2 32.8 L POC ABG pO2 137 H Sodium Potassium Chloride Carbon Dioxide BUN Creatinine Glucose POC Glucose 121 H 150 H Calcium Phosphorus Magnesium AST Alkaline Phosphatase C-Reactive Protein Total Protein Albumin Lipase Vitamin B12 TSH Urine WBC (Auto) Urine Chloride Urine Total Protein Crossmatch 10/16/16 10/16/16 10/16/16 10:47 13:27 14:24 WBC RBC Hgb Hct MCV RDW Plt Count Lymph % (Auto) [place] % (Auto) [place] # Seg Neutrophils % Seg Neuts % (Manual) Lymphocytes % (Manual) Monocytes % (Manual) Seg Neutrophils # Seg Neutrophils # Man Lymphocytes # (Manual) Monocytes # (Manual) Eosinophils # (Manual) Basophils # (Manual) PT INR APTT Heparin Anti-Xa Level POC ABG pH POC ABG pCO2 POC ABG pO2 Sodium Potassium Chloride Carbon Dioxide BUN Creatinine Glucose POC Glucose 184 H 171 H 174 H Calcium Phosphorus Magnesium AST Alkaline Phosphatase C-Reactive Protein Total Protein Albumin Lipase Vitamin B12 TSH Urine WBC (Auto) Urine Chloride Urine Total Protein Crossmatch 10/16/16 10/16/16 10/16/16 15:48 16:26 18:17 WBC RBC Hgb Hct MCV RDW Plt Count Lymph % (Auto) [place] % (Auto) [place] # Seg Neutrophils % Seg Neuts % (Manual) Lymphocytes % (Manual) Monocytes % (Manual) Seg Neutrophils # Seg Neutrophils # Man Lymphocytes # (Manual) Monocytes # (Manual) Eosinophils # (Manual) Basophils # (Manual) PT INR APTT Heparin Anti-Xa Level POC ABG pH POC ABG pCO2 POC ABG pO2 Sodium Potassium Chloride Carbon Dioxide BUN Creatinine Glucose POC Glucose 205 H 204 H 234 H Calcium Phosphorus Magnesium AST Alkaline Phosphatase C-Reactive Protein Total Protein Albumin Lipase Vitamin B12 TSH Urine WBC (Auto) Urine Chloride Urine Total Protein Crossmatch 10/16/16 10/16/16 10/16/16 19:40 20:33 21:36 WBC RBC Hgb Hct MCV RDW Plt Count Lymph % (Auto) [place] % (Auto) [place] # Seg Neutrophils % Seg Neuts % (Manual) Lymphocytes % (Manual) Monocytes % (Manual) Seg Neutrophils # Seg Neutrophils # Man Lymphocytes # (Manual) Monocytes # (Manual) Eosinophils # (Manual) Basophils # (Manual) PT INR APTT Heparin Anti-Xa Level POC ABG pH POC ABG pCO2 POC ABG pO2 Sodium Potassium Chloride Carbon Dioxide BUN Creatinine Glucose POC Glucose 167 H 153 H 158 H Calcium Phosphorus Magnesium AST Alkaline Phosphatase C-Reactive Protein Total Protein Albumin Lipase Vitamin B12 TSH Urine WBC (Auto) Urine Chloride Urine Total Protein Crossmatch 10/16/16 10/16/16 10/17/16 22:54 23:48 00:47 WBC RBC Hgb Hct MCV RDW Plt Count Lymph % (Auto) [place] % (Auto) [place] # Seg Neutrophils % Seg Neuts % (Manual) Lymphocytes % (Manual) Monocytes % (Manual) Seg Neutrophils # Seg Neutrophils # Man Lymphocytes # (Manual) Monocytes # (Manual) Eosinophils # (Manual) Basophils # (Manual) PT INR APTT Heparin Anti-Xa Level POC ABG pH POC ABG pCO2 POC ABG pO2 Sodium Potassium Chloride Carbon Dioxide BUN Creatinine Glucose POC Glucose 180 H 207 H 196 H Calcium Phosphorus Magnesium AST Alkaline Phosphatase C-Reactive Protein Total Protein Albumin Lipase Vitamin B12 TSH Urine WBC (Auto) Urine Chloride Urine Total Protein Crossmatch 10/17/16 10/17/16 10/17/16 01:57 02:49 03:50 WBC RBC Hgb Hct MCV RDW Plt Count Lymph % (Auto) [place] % (Auto) [place] # Seg Neutrophils % Seg Neuts % (Manual) Lymphocytes % (Manual) Monocytes % (Manual) Seg Neutrophils # Seg Neutrophils # Man Lymphocytes # (Manual) Monocytes # (Manual) Eosinophils # (Manual) Basophils # (Manual) PT INR APTT Heparin Anti-Xa Level POC ABG pH POC ABG pCO2 POC ABG pO2 Sodium Potassium Chloride Carbon Dioxide BUN Creatinine Glucose POC Glucose 180 H 151 H 106 H Calcium Phosphorus Magnesium AST Alkaline Phosphatase C-Reactive Protein Total Protein Albumin Lipase Vitamin B12 TSH Urine WBC (Auto) Urine Chloride Urine Total Protein Crossmatch 10/17/16 10/17/16 10/17/16 04:59 06:03 06:35 WBC RBC Hgb Hct MCV RDW Plt Count Lymph % (Auto) [place] % (Auto) [place] # Seg Neutrophils % Seg Neuts % (Manual) Lymphocytes % (Manual) Monocytes % (Manual) Seg Neutrophils # Seg Neutrophils # Man Lymphocytes # (Manual) Monocytes # (Manual) Eosinophils # (Manual) Basophils # (Manual) PT INR APTT Heparin Anti-Xa Level POC ABG pH 7.453 H POC ABG pCO2 30.1 L POC ABG pO2 111 H Sodium Potassium Chloride Carbon Dioxide BUN Creatinine Glucose POC Glucose 145 H 157 H Calcium Phosphorus Magnesium AST Alkaline Phosphatase C-Reactive Protein Total Protein Albumin Lipase Vitamin B12 TSH Urine WBC (Auto) Urine Chloride Urine Total Protein Crossmatch 10/17/16 10/17/16 10/17/16 07:08 07:11 08:01 WBC RBC Hgb Hct MCV RDW Plt Count Lymph % (Auto) [place] % (Auto) [place] # Seg Neutrophils % Seg Neuts % (Manual) Lymphocytes % (Manual) Monocytes % (Manual) Seg Neutrophils # Seg Neutrophils # Man Lymphocytes # (Manual) Monocytes # (Manual) Eosinophils # (Manual) Basophils # (Manual) PT INR APTT Heparin Anti-Xa Level POC ABG pH POC ABG pCO2 POC ABG pO2 Sodium 147 H Potassium Chloride 113.8 H Carbon Dioxide 19 L BUN Creatinine Glucose 136 H POC Glucose 136 H 152 H Calcium 7.7 L Phosphorus Magnesium AST Alkaline Phosphatase C-Reactive Protein Total Protein Albumin Lipase Vitamin B12 TSH Urine WBC (Auto) Urine Chloride Urine Total Protein Crossmatch 10/17/16 10/17/16 10/17/16 08:23 09:17 09:53 WBC 18.1 H RBC 3.01 L Hgb 9.7 L Hct 29.4 L MCV 98 H RDW Plt Count 116 L Lymph % (Auto) [place] % (Auto) [place] # Seg Neutrophils % Seg Neuts % (Manual) 77.0 H Lymphocytes % (Manual) 4.0 L Monocytes % (Manual) 12.0 H Seg Neutrophils # Seg Neutrophils # Man 13.9 H Lymphocytes # (Manual) 0.7 L Monocytes # (Manual) 2.2 H Eosinophils # (Manual) Basophils # (Manual) PT INR APTT Heparin Anti-Xa Level POC ABG pH POC ABG pCO2 POC ABG pO2 Sodium Potassium Chloride Carbon Dioxide BUN Creatinine Glucose POC Glucose 148 H 137 H Calcium Phosphorus Magnesium AST Alkaline Phosphatase C-Reactive Protein Total Protein Albumin Lipase Vitamin B12 TSH Urine WBC (Auto) Urine Chloride Urine Total Protein Crossmatch 10/17/16 10/17/16 10/17/16 11:43 16:07 17:42 WBC RBC Hgb Hct MCV RDW Plt Count Lymph % (Auto) [place] % (Auto) [place] # Seg Neutrophils % Seg Neuts % (Manual) Lymphocytes % (Manual) Monocytes % (Manual) Seg Neutrophils # Seg Neutrophils # Man Lymphocytes # (Manual) Monocytes # (Manual) Eosinophils # (Manual) Basophils # (Manual) PT 16.4 H INR 1.33 H APTT 38.8 H Heparin Anti-Xa Level POC ABG pH POC ABG pCO2 POC ABG pO2 Sodium Potassium Chloride Carbon Dioxide BUN Creatinine Glucose POC Glucose 179 H 153 H Calcium Phosphorus Magnesium AST Alkaline Phosphatase C-Reactive Protein Total Protein Albumin Lipase Vitamin B12 TSH Urine WBC (Auto) Urine Chloride Urine Total Protein Crossmatch 10/17/16 10/18/16 10/18/16 22:54 04:37 05:39 WBC RBC Hgb Hct MCV RDW Plt Count Lymph % (Auto) [place] % (Auto) [place] # Seg Neutrophils % Seg Neuts % (Manual) Lymphocytes % (Manual) Monocytes % (Manual) Seg Neutrophils # Seg Neutrophils # Man Lymphocytes # (Manual) Monocytes # (Manual) Eosinophils # (Manual) Basophils # (Manual) PT INR APTT Heparin Anti-Xa Level 0.27 L POC ABG pH 7.454 H POC ABG pCO2 30.8 L POC ABG pO2 115 H Sodium Potassium Chloride Carbon Dioxide BUN Creatinine Glucose POC Glucose 69 L Calcium Phosphorus Magnesium AST Alkaline Phosphatase C-Reactive Protein Total Protein Albumin Lipase Vitamin B12 TSH Urine WBC (Auto) Urine Chloride Urine Total Protein Crossmatch 10/18/16 10/18/16 10/18/16 06:46 06:46 06:46 WBC 20.5 H RBC 2.62 L Hgb 8.4 L Hct 26.0 L MCV 100 H RDW Plt Count Lymph % (Auto) [place] % (Auto) [place] # Seg Neutrophils % Seg Neuts % (Manual) 75.0 H Lymphocytes % (Manual) 9.0 L Monocytes % (Manual) 14.0 H Seg Neutrophils # Seg Neutrophils # Man 15.4 H Lymphocytes # (Manual) Monocytes # (Manual) 2.9 H Eosinophils # (Manual) Basophils # (Manual) PT INR APTT Heparin Anti-Xa Level POC ABG pH POC ABG pCO2 POC ABG pO2 Sodium Potassium Chloride 110.6 H Carbon Dioxide BUN Creatinine 1.3 H Glucose 153 H POC Glucose Calcium 8.0 L Phosphorus Magnesium 1.6 L AST Alkaline Phosphatase C-Reactive Protein Total Protein Albumin Lipase Vitamin B12 TSH Urine WBC (Auto) Urine Chloride Urine Total Protein Crossmatch 10/18/16 10/18/16 10/18/16 07:30 11:37 17:51 WBC RBC Hgb Hct MCV RDW Plt Count Lymph % (Auto) [place] % (Auto) [place] # Seg Neutrophils % Seg Neuts % (Manual) Lymphocytes % (Manual) Monocytes % (Manual) Seg Neutrophils # Seg Neutrophils # Man Lymphocytes # (Manual) Monocytes # (Manual) Eosinophils # (Manual) Basophils # (Manual) PT INR APTT Heparin Anti-Xa Level POC ABG pH POC ABG pCO2 POC ABG pO2 Sodium Potassium Chloride Carbon Dioxide BUN Creatinine Glucose POC Glucose 162 H 156 H 164 H Calcium Phosphorus Magnesium AST Alkaline Phosphatase C-Reactive Protein Total Protein Albumin Lipase Vitamin B12 TSH Urine WBC (Auto) Urine Chloride Urine Total Protein Crossmatch 10/18/16 10/19/16 10/19/16 23:44 03:59 05:13 WBC 18.2 H RBC 2.76 L Hgb 9.0 L Hct 27.7 L MCV 100 H RDW Plt Count Lymph % (Auto) [place] % (Auto) [place] # Seg Neutrophils % Seg Neuts % (Manual) 76.0 H Lymphocytes % (Manual) 10.0 L Monocytes % (Manual) Seg Neutrophils # Seg Neutrophils # Man 13.8 H Lymphocytes # (Manual) Monocytes # (Manual) Eosinophils # (Manual) Basophils # (Manual) PT INR APTT Heparin Anti-Xa Level POC ABG pH POC ABG pCO2 32.2 L POC ABG pO2 128 H Sodium Potassium Chloride Carbon Dioxide BUN Creatinine Glucose POC Glucose 278 H Calcium Phosphorus Magnesium AST Alkaline Phosphatase C-Reactive Protein Total Protein Albumin Lipase Vitamin B12 TSH Urine WBC (Auto) Urine Chloride Urine Total Protein Crossmatch 10/19/16 10/19/16 10/19/16 06:01 06:30 12:20 WBC RBC Hgb Hct MCV RDW Plt Count Lymph % (Auto) [place] % (Auto) [place] # Seg Neutrophils % Seg Neuts % (Manual) Lymphocytes % (Manual) Monocytes % (Manual) Seg Neutrophils # Seg Neutrophils # Man Lymphocytes # (Manual) Monocytes # (Manual) Eosinophils # (Manual) Basophils # (Manual) PT INR APTT Heparin Anti-Xa Level POC ABG pH POC ABG pCO2 POC ABG pO2 Sodium Potassium Chloride Carbon Dioxide 18 L BUN Creatinine 1.3 H Glucose 262 H POC Glucose 261 H 349 H Calcium 7.7 L Phosphorus 4.8 H D Magnesium AST Alkaline Phosphatase C-Reactive Protein Total Protein Albumin Lipase Vitamin B12 TSH Urine WBC (Auto) Urine Chloride Urine Total Protein Crossmatch 10/19/16 10/20/16 10/20/16 16:48 00:17 05:20 WBC 22.5 H RBC 2.80 L Hgb 8.9 L Hct 28.3 L MCV 101 H RDW Plt Count Lymph % (Auto) [place] % (Auto) [place] # Seg Neutrophils % Seg Neuts % (Manual) Lymphocytes % (Manual) 10.0 L Monocytes % (Manual) Seg Neutrophils # Seg Neutrophils # Man 13.3 H Lymphocytes # (Manual) Monocytes # (Manual) 1.1 H Eosinophils # (Manual) 0.7 H Basophils # (Manual) PT INR APTT Heparin Anti-Xa Level POC ABG pH POC ABG pCO2 POC ABG pO2 Sodium Potassium Chloride Carbon Dioxide BUN Creatinine Glucose POC Glucose 248 H 346 H Calcium Phosphorus Magnesium AST Alkaline Phosphatase C-Reactive Protein Total Protein Albumin Lipase Vitamin B12 TSH Urine WBC (Auto) Urine Chloride Urine Total Protein Crossmatch 10/20/16 10/20/16 10/20/16 05:20 05:20 06:05 WBC RBC Hgb Hct MCV RDW Plt Count Lymph % (Auto) [place] % (Auto) [place] # Seg Neutrophils % Seg Neuts % (Manual) Lymphocytes % (Manual) Monocytes % (Manual) Seg Neutrophils # Seg Neutrophils # Man Lymphocytes # (Manual) Monocytes # (Manual) Eosinophils # (Manual) Basophils # (Manual) PT INR APTT Heparin Anti-Xa Level 0.20 L POC ABG pH POC ABG pCO2 POC ABG pO2 Sodium Potassium Chloride Carbon Dioxide BUN 20 H Creatinine Glucose 374 H POC Glucose 337 H Calcium 8.3 L Phosphorus Magnesium AST Alkaline Phosphatase C-Reactive Protein Total Protein Albumin Lipase Vitamin B12 TSH Urine WBC (Auto) Urine Chloride Urine Total Protein Crossmatch 10/20/16 10/20/16 10/20/16 11:49 13:59 17:56 WBC RBC Hgb Hct MCV RDW Plt Count Lymph % (Auto) [place] % (Auto) [place] # Seg Neutrophils % Seg Neuts % (Manual) Lymphocytes % (Manual) Monocytes % (Manual) Seg Neutrophils # Seg Neutrophils # Man Lymphocytes # (Manual) Monocytes # (Manual) Eosinophils # (Manual) Basophils # (Manual) PT INR APTT Heparin Anti-Xa Level 2.00 H POC ABG pH POC ABG pCO2 POC ABG pO2 Sodium Potassium Chloride Carbon Dioxide BUN Creatinine Glucose POC Glucose 305 H 362 H Calcium Phosphorus Magnesium AST Alkaline Phosphatase C-Reactive Protein Total Protein Albumin Lipase Vitamin B12 TSH Urine WBC (Auto) Urine Chloride Urine Total Protein Crossmatch 10/20/16 10/21/16 10/21/16 23:52 05:00 05:49 WBC 22.9 H RBC 2.49 L Hgb 7.7 L Hct 25.6 L MCV 103 H RDW Plt Count Lymph % (Auto) [place] % (Auto) [place] # Seg Neutrophils % Seg Neuts % (Manual) 94.0 H Lymphocytes % (Manual) 1.0 L Monocytes % (Manual) Seg Neutrophils # Seg Neutrophils # Man 21.5 H Lymphocytes # (Manual) 0.2 L Monocytes # (Manual) 1.1 H Eosinophils # (Manual) Basophils # (Manual) PT INR APTT Heparin Anti-Xa Level POC ABG pH POC ABG pCO2 POC ABG pO2 Sodium Potassium Chloride Carbon Dioxide BUN Creatinine Glucose POC Glucose 252 H 180 H Calcium Phosphorus Magnesium AST Alkaline Phosphatase C-Reactive Protein Total Protein Albumin Lipase Vitamin B12 TSH Urine WBC (Auto) Urine Chloride Urine Total Protein Crossmatch 10/21/16 10/21/16 10/21/16 11:47 11:49 14:10 WBC RBC Hgb Hct MCV RDW Plt Count Lymph % (Auto) [place] % (Auto) [place] # Seg Neutrophils % Seg Neuts % (Manual) Lymphocytes % (Manual) Monocytes % (Manual) Seg Neutrophils # Seg Neutrophils # Man Lymphocytes # (Manual) Monocytes # (Manual) Eosinophils # (Manual) Basophils # (Manual) PT INR APTT Heparin Anti-Xa Level POC ABG pH POC ABG pCO2 POC ABG pO2 Sodium Potassium Chloride Carbon Dioxide BUN Creatinine Glucose POC Glucose 50 L 56 L 140 H Calcium Phosphorus Magnesium AST Alkaline Phosphatase C-Reactive Protein Total Protein Albumin Lipase Vitamin B12 TSH Urine WBC (Auto) Urine Chloride Urine Total Protein Crossmatch 10/21/16 10/21/16 10/22/16 18:24 Unknown 00:07 WBC RBC Hgb Hct MCV RDW Plt Count Lymph % (Auto) [place] % (Auto) [place] # Seg Neutrophils % Seg Neuts % (Manual) Lymphocytes % (Manual) Monocytes % (Manual) Seg Neutrophils # Seg Neutrophils # Man Lymphocytes # (Manual) Monocytes # (Manual) Eosinophils # (Manual) Basophils # (Manual) PT INR APTT Heparin Anti-Xa Level POC ABG pH POC ABG pCO2 POC ABG pO2 Sodium 150 H Potassium 3.1 L Chloride 112.4 H Carbon Dioxide BUN 25 H Creatinine 1.4 H Glucose POC Glucose 175 H 218 H Calcium 8.0 L Phosphorus Magnesium AST Alkaline Phosphatase C-Reactive Protein Total Protein Albumin Lipase Vitamin B12 TSH Urine WBC (Auto) Urine Chloride Urine Total Protein Crossmatch 10/22/16 10/22/16 10/22/16 04:20 04:20 10:25 WBC 20.8 H RBC 2.37 L Hgb 7.5 L Hct 23.9 L MCV 101 H RDW Plt Count Lymph % (Auto) [place] % (Auto) [place] # Seg Neutrophils % Seg Neuts % (Manual) 89.0 H Lymphocytes % (Manual) 7.0 L Monocytes % (Manual) Seg Neutrophils # Seg Neutrophils # Man 18.5 H Lymphocytes # (Manual) Monocytes # (Manual) Eosinophils # (Manual) Basophils # (Manual) 0.2 H PT INR APTT Heparin Anti-Xa Level POC ABG pH POC ABG pCO2 POC ABG pO2 Sodium 148 H Potassium 2.9 L* Chloride 109.4 H Carbon Dioxide BUN 26 H Creatinine Glucose 140 H POC Glucose Calcium 7.5 L Phosphorus Magnesium AST Alkaline Phosphatase C-Reactive Protein Total Protein Albumin Lipase Vitamin B12 976.8 H TSH Urine WBC (Auto) Urine Chloride Urine Total Protein Crossmatch 10/22/16 10/22/16 10/22/16 10:25 14:50 18:16 WBC RBC Hgb Hct MCV RDW Plt Count Lymph % (Auto) [place] % (Auto) [place] # Seg Neutrophils % Seg Neuts % (Manual) Lymphocytes % (Manual) Monocytes % (Manual) Seg Neutrophils # Seg Neutrophils # Man Lymphocytes # (Manual) Monocytes # (Manual) Eosinophils # (Manual) Basophils # (Manual) PT INR APTT Heparin Anti-Xa Level POC ABG pH POC ABG pCO2 POC ABG pO2 Sodium Potassium Chloride Carbon Dioxide BUN Creatinine Glucose POC Glucose 193 H Calcium Phosphorus Magnesium AST Alkaline Phosphatase C-Reactive Protein Total Protein Albumin Lipase Vitamin B12 TSH 0.143 L 0.162 L Urine WBC (Auto) Urine Chloride Urine Total Protein Crossmatch 10/22/16 10/22/16 10/22/16 20:00 20:00 20:00 WBC 24.1 H RBC 2.58 L Hgb 8.2 L Hct 26.4 L MCV 102 H RDW Plt Count Lymph % (Auto) [place] % (Auto) [place] # Seg Neutrophils % Seg Neuts % (Manual) 74.0 H Lymphocytes % (Manual) 7.0 L Monocytes % (Manual) Seg Neutrophils # Seg Neutrophils # Man 17.8 H Lymphocytes # (Manual) Monocytes # (Manual) Eosinophils # (Manual) Basophils # (Manual) PT INR APTT Heparin Anti-Xa Level 1.92 H POC ABG pH POC ABG pCO2 POC ABG pO2 Sodium Potassium Chloride Carbon Dioxide BUN Creatinine Glucose POC Glucose Calcium Phosphorus Magnesium AST Alkaline Phosphatase C-Reactive Protein Total Protein Albumin Lipase Vitamin B12 TSH Urine WBC (Auto) Urine Chloride Urine Total Protein Crossmatch See Detail 10/23/16 10/23/16 10/23/16 00:21 06:09 12:07 WBC RBC Hgb Hct MCV RDW Plt Count Lymph % (Auto) [place] % (Auto) [place] # Seg Neutrophils % Seg Neuts % (Manual) Lymphocytes % (Manual) Monocytes % (Manual) Seg Neutrophils # Seg Neutrophils # Man Lymphocytes # (Manual) Monocytes # (Manual) Eosinophils # (Manual) Basophils # (Manual) PT INR APTT Heparin Anti-Xa Level POC ABG pH POC ABG pCO2 POC ABG pO2 Sodium Potassium Chloride Carbon Dioxide BUN Creatinine Glucose POC Glucose 283 H 241 H 340 H Calcium Phosphorus Magnesium AST Alkaline Phosphatase C-Reactive Protein Total Protein Albumin Lipase Vitamin B12 TSH Urine WBC (Auto) Urine Chloride Urine Total Protein Crossmatch 10/23/16 10/23/16 10/23/16 14:01 16:00 17:59 WBC RBC Hgb Hct MCV RDW Plt Count Lymph % (Auto) [place] % (Auto) [place] # Seg Neutrophils % Seg Neuts % (Manual) Lymphocytes % (Manual) Monocytes % (Manual) Seg Neutrophils # Seg Neutrophils # Man Lymphocytes # (Manual) Monocytes # (Manual) Eosinophils # (Manual) Basophils # (Manual) PT INR APTT Heparin Anti-Xa Level 0.19 L POC ABG pH POC ABG pCO2 32.4 L POC ABG pO2 Sodium Potassium Chloride Carbon Dioxide BUN Creatinine Glucose POC Glucose 245 H Calcium Phosphorus Magnesium AST Alkaline Phosphatase C-Reactive Protein Total Protein Albumin Lipase Vitamin B12 TSH Urine WBC (Auto) Urine Chloride Urine Total Protein Crossmatch 10/23/16 10/23/16 10/23/16 22:55 Unknown Unknown WBC 22.6 H RBC 3.26 L Hgb Hct MCV RDW 17.1 H Plt Count Lymph % (Auto) [place] % (Auto) [place] # Seg Neutrophils % Seg Neuts % (Manual) Lymphocytes % (Manual) 11.0 L Monocytes % (Manual) Seg Neutrophils # Seg Neutrophils # Man 14.0 H Lymphocytes # (Manual) Monocytes # (Manual) Eosinophils # (Manual) Basophils # (Manual) PT INR APTT Heparin Anti-Xa Level 0.17 L 0.15 L POC ABG pH POC ABG pCO2 POC ABG pO2 Sodium Potassium Chloride Carbon Dioxide BUN Creatinine Glucose POC Glucose Calcium Phosphorus Magnesium AST Alkaline Phosphatase C-Reactive Protein Total Protein Albumin Lipase Vitamin B12 TSH Urine WBC (Auto) Urine Chloride Urine Total Protein Crossmatch 10/23/16 10/24/16 10/24/16 Unknown 00:05 05:30 WBC RBC Hgb Hct MCV RDW Plt Count Lymph % (Auto) [place] % (Auto) [place] # Seg Neutrophils % Seg Neuts % (Manual) Lymphocytes % (Manual) Monocytes % (Manual) Seg Neutrophils # Seg Neutrophils # Man Lymphocytes # (Manual) Monocytes # (Manual) Eosinophils # (Manual) Basophils # (Manual) PT INR APTT Heparin Anti-Xa Level 0.13 L POC ABG pH POC ABG pCO2 POC ABG pO2 Sodium Potassium Chloride 111.2 H Carbon Dioxide 20 L BUN 25 H Creatinine Glucose 227 H POC Glucose 118 H Calcium 7.1 L Phosphorus Magnesium AST Alkaline Phosphatase C-Reactive Protein Total Protein Albumin Lipase Vitamin B12 TSH Urine WBC (Auto) Urine Chloride Urine Total Protein Crossmatch 10/24/16 10/24/16 10/24/16 11:00 11:00 12:06 WBC 17.6 H RBC 2.92 L Hgb 9.2 L Hct 28.3 L MCV RDW 16.9 H Plt Count Lymph % (Auto) [place] % (Auto) [place] # Seg Neutrophils % Seg Neuts % (Manual) Lymphocytes % (Manual) Monocytes % (Manual) Seg Neutrophils # Seg Neutrophils # Man Lymphocytes # (Manual) Monocytes # (Manual) Eosinophils # (Manual) Basophils # (Manual) PT INR APTT Heparin Anti-Xa Level 0.27 L POC ABG pH POC ABG pCO2 POC ABG pO2 Sodium Potassium Chloride Carbon Dioxide BUN Creatinine Glucose POC Glucose 166 H Calcium Phosphorus Magnesium AST Alkaline Phosphatase C-Reactive Protein Total Protein Albumin Lipase Vitamin B12 TSH Urine WBC (Auto) Urine Chloride Urine Total Protein Crossmatch 10/24/16 10/25/16 10/25/16 12:27 00:49 03:30 WBC RBC Hgb 8.8 L Hct 28.1 L MCV RDW Plt Count Lymph % (Auto) [place] % (Auto) [place] # Seg Neutrophils % Seg Neuts % (Manual) Lymphocytes % (Manual) Monocytes % (Manual) Seg Neutrophils # Seg Neutrophils # Man Lymphocytes # (Manual) Monocytes # (Manual) Eosinophils # (Manual) Basophils # (Manual) PT INR APTT Heparin Anti-Xa Level POC ABG pH POC ABG pCO2 33.9 L POC ABG pO2 Sodium Potassium Chloride Carbon Dioxide BUN Creatinine Glucose POC Glucose 121 H Calcium Phosphorus Magnesium AST Alkaline Phosphatase C-Reactive Protein Total Protein Albumin Lipase Vitamin B12 TSH Urine WBC (Auto) Urine Chloride Urine Total Protein Crossmatch 10/25/16 10/25/16 10/25/16 09:49 12:10 19:25 WBC 21.1 H RBC 3.02 L Hgb 9.3 L Hct 28.9 L MCV RDW 16.3 H Plt Count Lymph % (Auto) [place] % (Auto) [place] # Seg Neutrophils % Seg Neuts % (Manual) 81.0 H Lymphocytes % (Manual) 9.0 L Monocytes % (Manual) Seg Neutrophils # Seg Neutrophils # Man 17.1 H Lymphocytes # (Manual) Monocytes # (Manual) Eosinophils # (Manual) Basophils # (Manual) PT INR APTT Heparin Anti-Xa Level POC ABG pH POC ABG pCO2 POC ABG pO2 Sodium Potassium Chloride Carbon Dioxide BUN Creatinine Glucose POC Glucose 158 H 151 H Calcium Phosphorus Magnesium AST Alkaline Phosphatase C-Reactive Protein Total Protein Albumin Lipase Vitamin B12 TSH Urine WBC (Auto) Urine Chloride Urine Total Protein Crossmatch 10/26/16 10/26/16 10/26/16 00:20 01:09 05:02 WBC 22.2 H RBC 2.89 L Hgb 8.7 L Hct 27.8 L MCV RDW 16.4 H Plt Count Lymph % (Auto) [place] % (Auto) [place] # Seg Neutrophils % Seg Neuts % (Manual) Lymphocytes % (Manual) Monocytes % (Manual) Seg Neutrophils # Seg Neutrophils # Man Lymphocytes # (Manual) Monocytes # (Manual) Eosinophils # (Manual) Basophils # (Manual) PT INR APTT Heparin Anti-Xa Level POC ABG pH POC ABG pCO2 POC ABG pO2 Sodium Potassium Chloride Carbon Dioxide BUN Creatinine Glucose POC Glucose 44 L 112 H Calcium Phosphorus Magnesium AST Alkaline Phosphatase C-Reactive Protein Total Protein Albumin Lipase Vitamin B12 TSH Urine WBC (Auto) Urine Chloride Urine Total Protein Crossmatch 10/26/16 10/26/16 10/26/16 05:02 12:11 12:14 WBC RBC Hgb Hct MCV RDW Plt Count Lymph % (Auto) [place] % (Auto) [place] # Seg Neutrophils % Seg Neuts % (Manual) Lymphocytes % (Manual) Monocytes % (Manual) Seg Neutrophils # Seg Neutrophils # Man Lymphocytes # (Manual) Monocytes # (Manual) Eosinophils # (Manual) Basophils # (Manual) PT INR APTT Heparin Anti-Xa Level POC ABG pH POC ABG pCO2 32.0 L POC ABG pO2 33 L Sodium Potassium 3.2 L D Chloride Carbon Dioxide 20 L BUN 24 H Creatinine Glucose 104 H POC Glucose 194 H Calcium 7.7 L Phosphorus Magnesium AST Alkaline Phosphatase C-Reactive Protein Total Protein Albumin Lipase Vitamin B12 TSH Urine WBC (Auto) Urine Chloride Urine Total Protein Crossmatch 10/26/16 10/26/16 10/27/16 15:28 17:23 00:04 WBC RBC Hgb Hct MCV RDW Plt Count Lymph % (Auto) [place] % (Auto) [place] # Seg Neutrophils % Seg Neuts % (Manual) Lymphocytes % (Manual) Monocytes % (Manual) Seg Neutrophils # Seg Neutrophils # Man Lymphocytes # (Manual) Monocytes # (Manual) Eosinophils # (Manual) Basophils # (Manual) PT INR APTT Heparin Anti-Xa Level POC ABG pH POC ABG pCO2 33.7 L POC ABG pO2 Sodium Potassium Chloride Carbon Dioxide BUN Creatinine Glucose POC Glucose 181 H 230 H Calcium Phosphorus Magnesium AST Alkaline Phosphatase C-Reactive Protein Total Protein Albumin Lipase Vitamin B12 TSH Urine WBC (Auto) Urine Chloride Urine Total Protein Crossmatch 10/27/16 10/27/16 10/27/16 05:15 05:15 05:38 WBC 25.5 H RBC 3.07 L Hgb 9.4 L Hct 30.1 L MCV 98 H RDW 16.4 H Plt Count 527 H Lymph % (Auto) [place] % (Auto) [place] # Seg Neutrophils % Seg Neuts % (Manual) Lymphocytes % (Manual) Monocytes % (Manual) Seg Neutrophils # Seg Neutrophils # Man Lymphocytes # (Manual) Monocytes # (Manual) Eosinophils # (Manual) Basophils # (Manual) PT INR APTT Heparin Anti-Xa Level POC ABG pH POC ABG pCO2 POC ABG pO2 Sodium Potassium Chloride Carbon Dioxide 19 L BUN 23 H Creatinine Glucose 160 H POC Glucose 168 H Calcium 8.0 L Phosphorus Magnesium AST Alkaline Phosphatase C-Reactive Protein Total Protein Albumin Lipase Vitamin B12 TSH Urine WBC (Auto) Urine Chloride Urine Total Protein Crossmatch 10/27/16 10/27/16 10/27/16 11:59 18:35 23:48 WBC RBC Hgb Hct MCV RDW Plt Count Lymph % (Auto) [place] % (Auto) [place] # Seg Neutrophils % Seg Neuts % (Manual) Lymphocytes % (Manual) Monocytes % (Manual) Seg Neutrophils # Seg Neutrophils # Man Lymphocytes # (Manual) Monocytes # (Manual) Eosinophils # (Manual) Basophils # (Manual) PT INR APTT Heparin Anti-Xa Level POC ABG pH POC ABG pCO2 POC ABG pO2 Sodium Potassium Chloride Carbon Dioxide BUN Creatinine Glucose POC Glucose 197 H 318 H 316 H Calcium Phosphorus Magnesium AST Alkaline Phosphatase C-Reactive Protein Total Protein Albumin Lipase Vitamin B12 TSH Urine WBC (Auto) Urine Chloride Urine Total Protein Crossmatch 10/28/16 10/28/16 10/28/16 03:13 04:10 04:10 WBC 18.8 H RBC 2.64 L Hgb 8.1 L Hct 26.1 L MCV 99 H RDW 16.2 H Plt Count 544 H Lymph % (Auto) [place] % (Auto) [place] # Seg Neutrophils % Seg Neuts % (Manual) Lymphocytes % (Manual) Monocytes % (Manual) Seg Neutrophils # Seg Neutrophils # Man Lymphocytes # (Manual) Monocytes # (Manual) Eosinophils # (Manual) Basophils # (Manual) PT INR APTT Heparin Anti-Xa Level POC ABG pH POC ABG pCO2 POC ABG pO2 Sodium Potassium Chloride Carbon Dioxide 21 L BUN 24 H Creatinine Glucose 302 H POC Glucose 304 H Calcium 7.7 L Phosphorus Magnesium AST Alkaline Phosphatase C-Reactive Protein Total Protein Albumin Lipase Vitamin B12 TSH Urine WBC (Auto) Urine Chloride Urine Total Protein Crossmatch 10/28/16 10/28/16 10/28/16 04:10 12:36 18:27 WBC RBC Hgb Hct MCV RDW Plt Count Lymph % (Auto) [place] % (Auto) [place] # Seg Neutrophils % Seg Neuts % (Manual) Lymphocytes % (Manual) Monocytes % (Manual) Seg Neutrophils # Seg Neutrophils # Man Lymphocytes # (Manual) Monocytes # (Manual) Eosinophils # (Manual) Basophils # (Manual) PT INR APTT Heparin Anti-Xa Level 0.20 L POC ABG pH POC ABG pCO2 POC ABG pO2 Sodium Potassium Chloride Carbon Dioxide BUN Creatinine Glucose POC Glucose 205 H 339 H Calcium Phosphorus Magnesium AST Alkaline Phosphatase C-Reactive Protein Total Protein Albumin Lipase Vitamin B12 TSH Urine WBC (Auto) Urine Chloride Urine Total Protein Crossmatch 10/29/16 10/29/16 10/29/16 01:05 06:19 09:30 WBC 20.3 H RBC 2.80 L Hgb 8.5 L Hct 26.7 L MCV RDW 15.4 H Plt Count 571 H Lymph % (Auto) [place] % (Auto) [place] # Seg Neutrophils % Seg Neuts % (Manual) 75.0 H Lymphocytes % (Manual) 4.0 L Monocytes % (Manual) Seg Neutrophils # Seg Neutrophils # Man 15.2 H Lymphocytes # (Manual) 0.8 L Monocytes # (Manual) Eosinophils # (Manual) Basophils # (Manual) PT INR APTT Heparin Anti-Xa Level POC ABG pH POC ABG pCO2 POC ABG pO2 Sodium Potassium Chloride Carbon Dioxide BUN Creatinine Glucose POC Glucose 275 H 179 H Calcium Phosphorus Magnesium AST Alkaline Phosphatase C-Reactive Protein Total Protein Albumin Lipase Vitamin B12 TSH Urine WBC (Auto) Urine Chloride Urine Total Protein Crossmatch 10/29/16 10/29/16 10/29/16 11:46 15:18 17:55 WBC RBC Hgb Hct MCV RDW Plt Count Lymph % (Auto) [place] % (Auto) [place] # Seg Neutrophils % Seg Neuts % (Manual) Lymphocytes % (Manual) Monocytes % (Manual) Seg Neutrophils # Seg Neutrophils # Man Lymphocytes # (Manual) Monocytes # (Manual) Eosinophils # (Manual) Basophils # (Manual) PT INR APTT Heparin Anti-Xa Level 1.15 H POC ABG pH POC ABG pCO2 POC ABG pO2 Sodium Potassium Chloride Carbon Dioxide BUN Creatinine Glucose POC Glucose 122 H 255 H Calcium Phosphorus Magnesium AST Alkaline Phosphatase C-Reactive Protein Total Protein Albumin Lipase Vitamin B12 TSH Urine WBC (Auto) Urine Chloride Urine Total Protein Crossmatch 10/30/16 10/30/16 10/30/16 00:10 05:30 05:30 WBC 19.8 H RBC 2.51 L Hgb 7.7 L Hct 24.1 L MCV RDW 15.5 H Plt Count 534 H Lymph % (Auto) [place] % (Auto) [place] # Seg Neutrophils % Seg Neuts % (Manual) Lymphocytes % (Manual) Monocytes % (Manual) Seg Neutrophils # Seg Neutrophils # Man Lymphocytes # (Manual) Monocytes # (Manual) Eosinophils # (Manual) Basophils # (Manual) PT INR APTT Heparin Anti-Xa Level POC ABG pH POC ABG pCO2 POC ABG pO2 Sodium Potassium Chloride Carbon Dioxide BUN Creatinine Glucose 211 H POC Glucose 202 H Calcium 7.4 L Phosphorus Magnesium AST Alkaline Phosphatase C-Reactive Protein Total Protein Albumin Lipase Vitamin B12 TSH Urine WBC (Auto) Urine Chloride Urine Total Protein Crossmatch 10/30/16 10/30/16 10/30/16 06:32 12:51 17:47 WBC RBC Hgb Hct MCV RDW Plt Count Lymph % (Auto) [place] % (Auto) [place] # Seg Neutrophils % Seg Neuts % (Manual) Lymphocytes % (Manual) Monocytes % (Manual) Seg Neutrophils # Seg Neutrophils # Man Lymphocytes # (Manual) Monocytes # (Manual) Eosinophils # (Manual) Basophils # (Manual) PT INR APTT Heparin Anti-Xa Level POC ABG pH POC ABG pCO2 POC ABG pO2 Sodium Potassium Chloride Carbon Dioxide BUN Creatinine Glucose POC Glucose 207 H 218 H 169 H Calcium Phosphorus Magnesium AST Alkaline Phosphatase C-Reactive Protein Total Protein Albumin Lipase Vitamin B12 TSH Urine WBC (Auto) Urine Chloride Urine Total Protein Crossmatch 10/30/16 10/31/16 10/31/16 23:59 05:25 11:21 WBC RBC Hgb Hct MCV RDW Plt Count Lymph % (Auto) [place] % (Auto) [place] # Seg Neutrophils % Seg Neuts % (Manual) Lymphocytes % (Manual) Monocytes % (Manual) Seg Neutrophils # Seg Neutrophils # Man Lymphocytes # (Manual) Monocytes # (Manual) Eosinophils # (Manual) Basophils # (Manual) PT INR APTT Heparin Anti-Xa Level POC ABG pH POC ABG pCO2 POC ABG pO2 Sodium Potassium Chloride Carbon Dioxide BUN Creatinine Glucose POC Glucose 138 H 127 H 132 H Calcium Phosphorus Magnesium AST Alkaline Phosphatase C-Reactive Protein Total Protein Albumin Lipase Vitamin B12 TSH Urine WBC (Auto) Urine Chloride Urine Total Protein Crossmatch 10/31/16 10/31/16 11/01/16 17:07 23:54 06:33 WBC 19.2 H RBC 2.51 L Hgb 7.9 L Hct 24.8 L MCV 99 H D RDW 16.1 H Plt Count 569 H Lymph % (Auto) [place] % (Auto) [place] # Seg Neutrophils % Seg Neuts % (Manual) Lymphocytes % (Manual) Monocytes % (Manual) Seg Neutrophils # Seg Neutrophils # Man Lymphocytes # (Manual) Monocytes # (Manual) Eosinophils # (Manual) Basophils # (Manual) PT INR APTT Heparin Anti-Xa Level POC ABG pH POC ABG pCO2 POC ABG pO2 Sodium Potassium Chloride Carbon Dioxide BUN Creatinine Glucose POC Glucose 138 H 153 H Calcium Phosphorus Magnesium AST Alkaline Phosphatase C-Reactive Protein Total Protein Albumin Lipase Vitamin B12 TSH Urine WBC (Auto) Urine Chloride Urine Total Protein Crossmatch 11/01/16 06:33 WBC RBC Hgb Hct MCV RDW Plt Count Lymph % (Auto) [place] % (Auto) [place] # Seg Neutrophils % Seg Neuts % (Manual) Lymphocytes % (Manual) Monocytes % (Manual) Seg Neutrophils # Seg Neutrophils # Man Lymphocytes # (Manual) Monocytes # (Manual) Eosinophils # (Manual) Basophils # (Manual) PT INR APTT Heparin Anti-Xa Level POC ABG pH POC ABG pCO2 POC ABG pO2 Sodium Potassium 3.5 L Chloride Carbon Dioxide 21 L BUN Creatinine Glucose 137 H POC Glucose Calcium 7.7 L Phosphorus Magnesium AST Alkaline Phosphatase 148 H C-Reactive Protein Total Protein 6.2 L Albumin 2.0 L Lipase Vitamin B12 TSH Urine WBC (Auto) Urine Chloride Urine Total Protein Crossmatch Allied health notes reviewed: RT
[2016-11-01] MEDS: VERSED/NS 100MG/100ML 100 MG/100 ML BAG IV SCH (12:27)
[2016-11-01] MEDS: fentaNYL DRIP Premix 2,000 MCG/100 ML BAG IV SCH (14:07)
--- NOTE | 2016-11-01 16:05 | Progress Note ---
Assessment and Plan A/P: 1. The patient will undergo tracheostomy/PEG placement tomorrow (11/02). Hold heparin dripp at 4AM on 11/02/16. Subjective Date of service: 11/01/16 Narrative: The patient remains ventilator dependent. Objective Vital Signs - 12hr 11/01/16 11/01/16 11/01/16 04:15 04:18 04:30 Temperature Pulse Rate 107 H 113 H 111 H Pulse Rate [ Apical] Pulse Rate [ From Monitor] Respiratory 22 24 Rate Blood Pressure 160/68 160/68 158/71 O2 Sat by Pulse 100 98 100 Oximetry 11/01/16 11/01/16 11/01/16 04:45 05:00 05:15 Temperature Pulse Rate 110 H 110 H 114 H Pulse Rate [ Apical] Pulse Rate [ From Monitor] Respiratory 17 20 16 Rate Blood Pressure 150/82 159/96 155/110 O2 Sat by Pulse 100 100 100 Oximetry 11/01/16 11/01/16 11/01/16 05:30 05:45 06:00 Temperature Pulse Rate 109 H 109 H 105 H Pulse Rate [ Apical] Pulse Rate [ From Monitor] Respiratory 19 19 19 Rate Blood Pressure 158/66 151/68 141/70 O2 Sat by Pulse 100 99 100 Oximetry 11/01/16 11/01/16 11/01/16 06:15 06:30 06:45 Temperature Pulse Rate 105 H 96 H 92 H Pulse Rate [ Apical] Pulse Rate [ From Monitor] Respiratory 19 18 21 Rate Blood Pressure 149/67 131/60 131/60 O2 Sat by Pulse 100 100 100 Oximetry 11/01/16 11/01/16 11/01/16 07:00 07:15 07:30 Temperature Pulse Rate 90 88 85 Pulse Rate [ Apical] Pulse Rate [ From Monitor] Respiratory 14 18 18 Rate Blood Pressure 124/58 122/55 122/55 O2 Sat by Pulse 100 100 100 Oximetry 11/01/16 11/01/16 11/01/16 07:45 08:00 08:15 Temperature 101 F H Pulse Rate 84 84 83 Pulse Rate [ Apical] Pulse Rate [ From Monitor] Respiratory 18 18 18 Rate Blood Pressure 119/55 123/56 123/57 O2 Sat by Pulse 100 100 100 Oximetry 11/01/16 11/01/16 11/01/16 08:30 08:35 08:45 Temperature Pulse Rate 100 H 105 H Pulse Rate [ 91 H Apical] Pulse Rate [ 91 H From Monitor] Respiratory 17 18 18 Rate Blood Pressure 134/63 134/63 O2 Sat by Pulse 100 100 100 Oximetry 11/01/16 11/01/16 11/01/16 09:00 09:15 09:30 Temperature Pulse Rate 106 H 105 H 109 H Pulse Rate [ Apical] Pulse Rate [ From Monitor] Respiratory 21 14 15 Rate Blood Pressure 157/64 146/64 140/73 O2 Sat by Pulse 100 99 100 Oximetry 11/01/16 11/01/16 11/01/16 09:45 10:00 10:15 Temperature Pulse Rate 106 H 106 H 104 H Pulse Rate [ Apical] Pulse Rate [ From Monitor] Respiratory 18 16 15 Rate Blood Pressure 134/63 144/62 136/58 O2 Sat by Pulse 99 100 100 Oximetry 11/01/16 11/01/16 11/01/16 10:30 10:45 11:00 Temperature Pulse Rate 112 H 104 H 101 H Pulse Rate [ Apical] Pulse Rate [ From Monitor] Respiratory 16 16 15 Rate Blood Pressure 141/62 135/56 132/57 O2 Sat by Pulse 100 100 100 Oximetry 11/01/16 11/01/16 11/01/16 11:15 11:30 11:45 Temperature Pulse Rate 103 H 99 H 102 H Pulse Rate [ Apical] Pulse Rate [ From Monitor] Respiratory 18 18 17 Rate Blood Pressure 138/60 131/64 139/62 O2 Sat by Pulse 99 99 98 Oximetry 11/01/16 11/01/16 11/01/16 12:00 12:15 12:30 Temperature 100.8 F H Pulse Rate 104 H 100 H 104 H Pulse Rate [ Apical] Pulse Rate [ From Monitor] Respiratory 14 17 17 Rate Blood Pressure 142/63 139/59 138/64 O2 Sat by Pulse 97 99 98 Oximetry 11/01/16 12:45 Temperature Pulse Rate 101 H Pulse Rate [ Apical] Pulse Rate [ From Monitor] Respiratory 15 Rate Blood Pressure 140/62 O2 Sat by Pulse 98 Oximetry - Neck no masses, trachea midline - Respiratory rales: bilateral - Abdomen soft, bowel sounds hypoactive (lower midline scar) - Labs 11/01/16 06:33 11/01/16 06:33 Diabetes panel 11/01/16 Range/Units 06:33 Sodium 144 (137-145) mmol/L Potassium 3.5 L (3.6-5.0) mmol/L Chloride 103.3 (98-107) mmol/L Carbon Dioxide 21 L (22-30) mmol/L BUN 10 (7-17) mg/dL Creatinine 0.9 (0.7-1.2) mg/dL Glucose 137 H (65-100) mg/dL Calcium 7.7 L (8.4-10.2) mg/dL AST 14 (5-40) units/L ALT 14 (7-56) units/L Alkaline Phosphatase 148 H (35-129) units/L Total Protein 6.2 L (6.3-8.2) g/dL Albumin 2.0 L (3.9-5) g/dL Calcium panel 11/01/16 Range/Units 06:33 Calcium 7.7 L (8.4-10.2) mg/dL Albumin 2.0 L (3.9-5) g/dL Pituitary panel 11/01/16 Range/Units 06:33 Sodium 144 (137-145) mmol/L Potassium 3.5 L (3.6-5.0) mmol/L Chloride 103.3 (98-107) mmol/L Carbon Dioxide 21 L (22-30) mmol/L BUN 10 (7-17) mg/dL Creatinine 0.9 (0.7-1.2) mg/dL Glucose 137 H (65-100) mg/dL Calcium 7.7 L (8.4-10.2) mg/dL Adrenal panel 11/01/16 Range/Units 06:33 Sodium 144 (137-145) mmol/L Potassium 3.5 L (3.6-5.0) mmol/L Chloride 103.3 (98-107) mmol/L Carbon Dioxide 21 L (22-30) mmol/L BUN 10 (7-17) mg/dL Creatinine 0.9 (0.7-1.2) mg/dL Glucose 137 H (65-100) mg/dL Calcium 7.7 L (8.4-10.2) mg/dL Total Bilirubin < 0.2 (0.1-1.2) mg/dL AST 14 (5-40) units/L ALT 14 (7-56) units/L Alkaline Phosphatase 148 H (35-129) units/L Total Protein 6.2 L (6.3-8.2) g/dL Albumin 2.0 L (3.9-5) g/dL
--- NOTE | 2016-11-01 19:44 | Progress Note ---
Subjective Date of service: 11/01/16 Principal diagnosis: respiratory failure on mechanical ventilatory support, DKA Interval history: AWAKE. FEVER. Vital signs - Temp 101 CHEST - GOOD AIR ENTRY CVS - S1S2 ABD - BS_ LABS See lab section. ASSESSMENT 1. Sepsis 2. dka 3. resp failure 4. htn 5. clostridium difficile colitis 6. bilateral pneumonia 6. RIGHT LEG GANGRENE. RECOMMENDATION 1. cbc/bmp in am 2. Fever likely related to right foot gangrene. Will need surgical intervention. Objective - Constitutional Vitals: Vital Signs Temp Pulse Resp BP Pulse Ox 100.1 F H 99 H 15 136/71 99 11/01/16 17:43 11/01/16 19:25 11/01/16 12:45 11/01/16 19:25 11/01/16 19:25 Temperature -Last 24 Hours Temperature 100.1 F Temperature 100.8 F Temperature 101 F Temperature 99.6 F Temperature 100.0 F Temperature 100.0 F Temperature 98.9 F - Labs CBC & Chem 7: 11/01/16 06:33 11/01/16 06:33 Labs: Abnormal lab results 10/31/16 10/31/16 11/01/16 Range/Units 17:07 23:54 06:33 WBC 19.2 H (4.5-11.0) K/mm3 RBC 2.51 L (3.65-5.03) M/mm3 Hgb 7.9 L (10.1-14.3) gm/dl Hct 24.8 L (30.3-42.9) % MCV 99 H D (79-97) fl RDW 16.1 H (13.2-15.2) % Plt Count 569 H (140-440) K/mm3 Potassium (3.6-5.0) mmol/L Carbon Dioxide (22-30) mmol/L Glucose (65-100) mg/dL POC Glucose 138 H 153 H (70-105) Calcium (8.4-10.2) mg/dL Alkaline Phosphatase (35-129) units/L Total Protein (6.3-8.2) g/dL Albumin (3.9-5) g/dL 11/01/16 Range/Units 06:33 WBC (4.5-11.0) K/mm3 RBC (3.65-5.03) M/mm3 Hgb (10.1-14.3) gm/dl Hct (30.3-42.9) % MCV (79-97) fl RDW (13.2-15.2) % Plt Count (140-440) K/mm3 Potassium 3.5 L (3.6-5.0) mmol/L Carbon Dioxide 21 L (22-30) mmol/L Glucose 137 H (65-100) mg/dL POC Glucose (70-105) Calcium 7.7 L (8.4-10.2) mg/dL Alkaline Phosphatase 148 H (35-129) units/L Total Protein 6.2 L (6.3-8.2) g/dL Albumin 2.0 L (3.9-5) g/dL
--- NOTE | 2016-11-01 22:39 | Progress Note ---
Assessment and Plan 1. Acute respiratory failure with hypercapnia: Vent supported. Continue with bronchodilators and wean as tolerated. For PEG tube placement 2. Diabetes: Sliding scale insulin 3. Sepsis- Leukocytosis Suspected due to UTI, urine has only grown Paula, sputum cultures grew group B strep, continue broad-spectrum antibiotics, infectious disease input appreciated 4. 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 Too ill for any surgical intervention per vascular surgeons 5. Hypokalemia: Supplement potassium 6. Toxic metabolic encephalopathy- improved. 7. LUCY- present on admissions. likely vasomotor . resolved 8. Tachycardia- continue BB will add cardizem, if no improvement will add cardiology consultation 9. Anemia: Multifactorial including sepsis. We'll trend Given her multiple medical illnesses, her prognosis is quite poor Subjective Date of service: 11/01/16 Principal diagnosis: respiratory failure on mechanical ventilatory support, DKA Interval history: Remains intubated. Objective - Constitutional Vitals: Vital Signs - 12hr 11/01/16 11/01/16 11/01/16 10:45 11:00 11:15 Temperature Pulse Rate 104 H 101 H 103 H Respiratory 16 15 18 Rate Blood Pressure 135/56 132/57 138/60 O2 Sat by Pulse 100 100 99 Oximetry 11/01/16 11/01/16 11/01/16 11:30 11:45 12:00 Temperature 100.8 F H Pulse Rate 99 H 102 H 104 H Respiratory 18 17 14 Rate Blood Pressure 131/64 139/62 142/63 O2 Sat by Pulse 99 98 97 Oximetry 11/01/16 11/01/16 11/01/16 12:15 12:30 12:35 Temperature Pulse Rate 100 H 104 H 99 H Respiratory 17 17 Rate Blood Pressure 139/59 138/64 138/64 O2 Sat by Pulse 99 98 99 Oximetry 11/01/16 11/01/16 11/01/16 12:45 17:15 17:43 Temperature 100.1 F H Pulse Rate 101 H 99 H Respiratory 15 Rate Blood Pressure 140/62 159/69 O2 Sat by Pulse 98 99 Oximetry 11/01/16 11/01/16 19:25 19:57 Temperature 99.9 F H Pulse Rate 99 H Respiratory Rate Blood Pressure 136/71 O2 Sat by Pulse 99 Oximetry General appearance: Present: other (intubated) - EENT Eyes: PERRL, EOM intact - Neck Neck: supple, normal ROM - Respiratory Respiratory effort: normal Respiratory: bilateral: diminished - Cardiovascular Rhythm: regular Heart Sounds: Present: S1 & S2. Absent: gallop, rub Extremity abnormal: other (gangrene of the foot) - Gastrointestinal General gastrointestinal: Present: soft, non-tender, non-distended, normal bowel sounds - Musculoskeletal Musculoskeletal: other (gangrene of the right foot) - Neurologic Neurologic: other (intubated) - Labs CBC & Chem 7: 11/01/16 06:33 11/01/16 06:33 Labs: Abnormal lab results 10/31/16 10/31/16 11/01/16 Range/Units 17:07 23:54 06:33 WBC 19.2 H (4.5-11.0) K/mm3 RBC 2.51 L (3.65-5.03) M/mm3 Hgb 7.9 L (10.1-14.3) gm/dl Hct 24.8 L (30.3-42.9) % MCV 99 H D (79-97) fl RDW 16.1 H (13.2-15.2) % Plt Count 569 H (140-440) K/mm3 Potassium (3.6-5.0) mmol/L Carbon Dioxide (22-30) mmol/L Glucose (65-100) mg/dL POC Glucose 138 H 153 H (70-105) Calcium (8.4-10.2) mg/dL Alkaline Phosphatase (35-129) units/L Total Protein (6.3-8.2) g/dL Albumin (3.9-5) g/dL 11/01/16 Range/Units 06:33 WBC (4.5-11.0) K/mm3 RBC (3.65-5.03) M/mm3 Hgb (10.1-14.3) gm/dl Hct (30.3-42.9) % MCV (79-97) fl RDW (13.2-15.2) % Plt Count (140-440) K/mm3 Potassium 3.5 L (3.6-5.0) mmol/L Carbon Dioxide 21 L (22-30) mmol/L Glucose 137 H (65-100) mg/dL POC Glucose (70-105) Calcium 7.7 L (8.4-10.2) mg/dL Alkaline Phosphatase 148 H (35-129) units/L Total Protein 6.2 L (6.3-8.2) g/dL Albumin 2.0 L (3.9-5) g/dL
[2016-11-01] MEDS: LEVAQUIN 750MG/150ML 750 MG/150 ML BAG IV SCH (22:51)
[2016-11-01] MEDS: HEPARIN/ 0.45% NACL-25,000 UNIT/500 ML 25,000 UNITS/500 ML BAG IV SCH (23:33)
[2016-11-02] MEDS: fentaNYL DRIP Premix 2,000 MCG/100 ML BAG IV SCH ×3 (01:12→21:55)
[2016-11-02 04:45] LABS: Hematocrit 23.5 % (30.3-42.9); Hemoglobin 7.6 gm/dl (10.1-14.3); Mean Corpuscular HGB Conc 32 % (30-34); Mean Corpuscular Hemoglobin 31 pg (28-32); Mean Corpuscular Volume 97 fl (79-97); Platelet Count 502 K/mm3 (140-440); Red Blood Count 2.43 M/mm3 (3.65-5.03); Red Cell Distribution Width 15.9 % (13.2-15.2); White Blood Count 17.7 K/mm3 (4.5-11.0)
[2016-11-02] MEDS: REGLAN IV SCH ×3 (05:12→12:30)
[2016-11-02 05:31] LABS: Alanine Aminotransferase 14 units/L (7-56); Albumin 1.8 g/dL (3.9-5); Albumin/Globulin Ratio 0.4 %; Alkaline Phosphatase 132 units/L (35-129); Anion Gap 18 mmol/L; Bilirubin,Total 0.2 mg/dL (0.1-1.2); Blood Urea Nitrogen 6 mg/dL (7-17); Calcium 7.5 mg/dL (8.4-10.2); Carbon Dioxide 24 mmol/L (22-30); Chloride 100.4 mmol/L (98-107); Glucose 135 mg/dL (65-100); Potassium 3.2 mmol/L (3.6-5.0); Sodium 139 mmol/L (137-145); Total Protein 6.2 g/dL (6.3-8.2)
[2016-11-02] MEDS: LOPRESSOR FEEDTUBE SCH ×3 (05:40→21:54)
[2016-11-02] MEDS: CLEOCIN 600 MG/50 mL 600 MG/50 ML BAG IV SCH ×3 (05:41→21:57)
[2016-11-02 06:10] LABS: Basophils % (Manual) 0 % (0.0-1.8); Blastocytes % (Manual) 0 %; Eosinophils % (Manual) 0 % (0.0-4.3)
[2016-11-02 06:11] LABS: Anisocytosis 2+; Diff Status Complete; Platelet Estimate Appears Increased; Polychromasia Few; Stomatocytes Few
--- NOTE | 2016-11-02 07:44 | Anesthesia Day of Surgery ---
Anesthesia Day of Surgery - Day of Surgery Patient Examined: Yes Patient H&P Reviewed: Yes Patient is NPO: Yes
--- NOTE | 2016-11-02 07:44 | Anesthesia Consultation ---
Anesthesia Consult and Med Hx Date of service: 11/02/16 - Airway ROM Head & Neck: Adequate Mental/Hyoid Distance: Adequate Intubation Access Assessment: Probably Good - Pre-Operative Health Status ASA Pre-Surgery Classification: ASA4 Proposed Anesthetic Plan: General - Pre-Anesthesia Comment Pre-Anesthesia Comments: Patient is intubated, in ICU, awake - Pulmonary Hx Smoking: No Hx Asthma: Yes COPD: No Hx Pneumonia: No Hx Sleep Apnea: No - Cardiovascular System Hx Hypertension: Yes Hx Coronary Artery Disease: Yes Hx Heart Attack/AMI: No Hx Angina: No Hx Percutaneous Transluminal Coronary Angioplasty (PTCA): No Hx Pacemaker: No Hx Internal Defibrillator: No Hx Valvular Heart Disease: No Hx Heart Murmur: No Hx Peripheral Vascular Disease: Yes (left leg is cold, non viable. Being prepared for revascularization and BKA) - Central Nervous System Hx Psychiatric Problems: No - Gastrointestinal Hx Ulcer: No - Endocrine Hx Renal Disease: Yes (CKD) Hx End Stage Renal Disease: No Hx Cirrhosis: No Hx Insulin Dependent Diabetes: Yes (admited with severe ketoacidosis) - Other Systems Hx Cancer: No - Additional Comments Anesthesia Medical History Comments: PEG and trach at the bedside
[2016-11-02] MEDS ORDERED: SUBLIMAZE ONE (08:28)
[2016-11-02] MEDS ORDERED: DIPRIVAN 10 MG/ML IV ONE (08:28)
[2016-11-02] MEDS ORDERED: ZEMURON IV ONE ×2 (08:28→11:01)
[2016-11-02] MEDS ORDERED: WATER FOR IRRIG STERILE IR ONE (08:29)
[2016-11-02] MEDS ORDERED: VERSED ONE (08:29)
[2016-11-02] MEDS ORDERED: NACL 0.9% 1000 ML 1,000 ML ONE (08:30)
[2016-11-02] MEDS: NACL 0.9% 1000 ML 1,000 ML IV SCH ×2 (10:00→22:00)
--- NOTE | 2016-11-02 10:46 | Post Operative Note ---
Pre-op diagnosis: Resp failure Post-op diagnosis: same Findings: as above Procedure: [place] Endoscopic Gastrostomy tube Percut dilatational tracheostomy Anesthesia: GETA Surgeon: JOSLYN KANG Material Damage Appraiser: SARAH ROBERTSON Estimated blood loss: minimal Pathology: none Condition: stable Disposition: ICU
[2016-11-02] MEDS: PEPCID PO SCH ×2 (11:15→21:54)
--- NOTE | 2016-11-02 11:57 | XRay Report ---
Single view chest: Compared to 10/24/16. History: Tracheostomy tube placement. Findings: Borderline cardiomegaly. Stable support system. Mild pulmonary venous congestion. No consolidation or pleural effusion. No significant interval lung change. Impression: No significant interval lung changes.
--- NOTE | 2016-11-02 13:06 | Progress Note ---
Assessment and Plan - Patient Problems (1) Acute respiratory failure with hypercapnia Current Visit: Yes Status: Acute Plan to address problem: - continue aspiration precautions / VAP bundles - continue bronchodilators and pulmonary toilet - wean oxygen to keep sats > 94% - resume graded weaning at Psupp of 20 cmH2O (2) Altered mental status Current Visit: Yes Status: Acute Qualifiers: Altered mental status type: A Coma depth: C Coma timing: C Plan to address problem: - no active seizures - following clinically - seen by neurology and will follow their recommendations - no seizures on EEG (3) LUCY (acute kidney injury) Current Visit: Yes Status: Acute Plan to address problem: - resolved - follow I's & O's (4) DKA (diabetic ketoacidoses) Current Visit: Yes Status: Acute Qualifiers: Diabetes mellitus type: D Diabetes mellitus complication detail: D Plan to address problem: - resolved - continue SSI (5) Sepsis Current Visit: No Status: Acute Qualifiers: Sepsis type: S Plan to address problem: - continue anti-infectives per ID recs - follow clinically - trend lactate and CRP prn (6) Discharge planning issues Current Visit: No Status: Acute Plan to address problem: ...remains critically ill on life sustaining treatments including MVS and at high risk for further deterioration including ...30' CCT Subjective Date of service: 11/02/16 Principal diagnosis: respiratory failure on mechanical ventilatory support, DKA Interval history: Seen and examined at bedside; 24 hour events reviewed; nursing and respiratory care staff consulted; no adverse overnight events reported to me; remainsd on MVS; family contemplating revascularization procedure +/- amputation; no emesis or overt aspiration; for trach and PEG today Objective Vital Signs - 12hr 11/02/16 11/02/16 11/02/16 01:15 01:30 01:45 Temperature Pulse Rate 93 H 90 94 H Pulse Rate [ Apical] Pulse Rate [ From Monitor] Respiratory 16 19 18 Rate Blood Pressure 136/63 149/66 148/65 O2 Sat by Pulse 100 99 98 Oximetry 11/02/16 11/02/16 11/02/16 02:00 02:15 02:30 Temperature Pulse Rate 95 H 92 H 93 H Pulse Rate [ Apical] Pulse Rate [ From Monitor] Respiratory 22 21 15 Rate Blood Pressure 139/64 138/69 127/63 O2 Sat by Pulse 100 99 98 Oximetry 11/02/16 11/02/16 11/02/16 02:45 03:00 03:15 Temperature Pulse Rate 89 94 H 90 Pulse Rate [ Apical] Pulse Rate [ From Monitor] Respiratory 18 18 18 Rate Blood Pressure 137/65 134/70 144/70 O2 Sat by Pulse 100 100 100 Oximetry 11/02/16 11/02/16 11/02/16 03:30 03:45 03:47 Temperature Pulse Rate 89 93 H 91 H Pulse Rate [ Apical] Pulse Rate [ From Monitor] Respiratory 17 12 Rate Blood Pressure 141/69 151/72 152/72 O2 Sat by Pulse 100 100 100 Oximetry 11/02/16 11/02/16 11/02/16 04:00 04:15 04:30 Temperature 100.0 F H Pulse Rate 101 H 96 H 92 H Pulse Rate [ Apical] Pulse Rate [ From Monitor] Respiratory 18 19 18 Rate Blood Pressure 151/72 141/72 143/67 O2 Sat by Pulse 100 98 99 Oximetry 11/02/16 11/02/16 11/02/16 04:45 05:00 05:15 Temperature Pulse Rate 91 H 87 87 Pulse Rate [ Apical] Pulse Rate [ From Monitor] Respiratory 17 18 17 Rate Blood Pressure 144/66 135/63 135/61 O2 Sat by Pulse 100 98 98 Oximetry 11/02/16 11/02/16 11/02/16 05:30 05:40 05:45 Temperature Pulse Rate 93 H 89 88 Pulse Rate [ Apical] Pulse Rate [ From Monitor] Respiratory 17 17 Rate Blood Pressure 136/66 136/66 141/64 O2 Sat by Pulse 97 97 Oximetry 11/02/16 11/02/16 11/02/16 06:00 06:15 06:30 Temperature Pulse Rate 87 84 86 Pulse Rate [ Apical] Pulse Rate [ From Monitor] Respiratory 18 18 19 Rate Blood Pressure 139/68 135/64 135/65 O2 Sat by Pulse 96 97 98 Oximetry 11/02/16 11/02/16 11/02/16 06:45 07:00 07:10 Temperature Pulse Rate 86 92 H 100 H Pulse Rate [ Apical] Pulse Rate [ From Monitor] Respiratory 19 13 Rate Blood Pressure 137/66 143/70 O2 Sat by Pulse 97 98 98 Oximetry 11/02/16 11/02/16 11/02/16 07:15 07:30 07:45 Temperature Pulse Rate 99 H 97 H 98 H Pulse Rate [ Apical] Pulse Rate [ From Monitor] Respiratory 19 15 18 Rate Blood Pressure 145/67 145/66 148/68 O2 Sat by Pulse 97 97 97 Oximetry 11/02/16 11/02/16 11/02/16 08:00 08:15 08:30 Temperature 100.4 F H Pulse Rate 100 H 100 H 104 H Pulse Rate [ 95 H Apical] Pulse Rate [ 98 H From Monitor] Respiratory 17 19 17 Rate Blood Pressure 149/69 148/67 146/71 O2 Sat by Pulse 97 97 96 Oximetry 11/02/16 11/02/16 11/02/16 08:45 09:00 09:15 Temperature Pulse Rate 107 H 103 H 105 H Pulse Rate [ Apical] Pulse Rate [ From Monitor] Respiratory 18 22 22 Rate Blood Pressure 154/73 141/73 148/67 O2 Sat by Pulse 97 96 96 Oximetry 11/02/16 11/02/16 11/02/16 09:30 09:40 09:45 Temperature 99.9 F H Pulse Rate 93 H 115 H 96 H Pulse Rate [ Apical] Pulse Rate [ From Monitor] Respiratory 17 10 L 19 Rate Blood Pressure 141/63 157/70 146/64 O2 Sat by Pulse 99 100 98 Oximetry 11/02/1611/02/11/02/16 10:00 10:16 10:30 Temperature Pulse Rate 105 H 109 H 113 H Pulse Rate [ Apical] Pulse Rate [ From Monitor] Respiratory 20 19 17 Rate Blood Pressure 145/97 189/92 165/78 O2 Sat by Pulse 99 98 100 Oximetry 11/02/16 11/02/16 11/02/16 10:40 10:45 11:00 Temperature Pulse Rate 104 H 130 H 127 H Pulse Rate [ Apical] Pulse Rate [ From Monitor] Respiratory 18 18 Rate Blood Pressure 175/86 178/89 O2 Sat by Pulse 97 100 100 Oximetry 11/02/16 11/02/16 11/02/16 11:15 11:30 11:45 Temperature Pulse Rate 115 H 129 H 111 H Pulse Rate [ Apical] Pulse Rate [ From Monitor] Respiratory 10 L 18 18 Rate Blood Pressure 157/70 161/72 139/60 O2 Sat by Pulse 100 100 100 Oximetry 11/02/16 11/02/16 11/02/16 12:00 12:15 12:30 Temperature Pulse Rate 107 H 103 H 97 H Pulse Rate [ 100 H Apical] Pulse Rate [ 98 H From Monitor] Respiratory 18 20 18 Rate Blood Pressure 137/60 129/58 134/55 O2 Sat by Pulse 100 99 99 Oximetry 11/02/16 12:45 Temperature Pulse Rate 102 H Pulse Rate [ Apical] Pulse Rate [ From Monitor] Respiratory 18 Rate Blood Pressure 133/59 O2 Sat by Pulse 99 Oximetry Constitutional: no acute distress, other (? delirium / dementia element) Eyes: non-icteric ENT: oropharynx moist Neck: supple, no lymphadenopathy Effort: mildly labored Ascultation: Bilateral: diminished breath sounds, rales (bases) Cardiovascular: regular rate and rhythm, other (tachycardia) Gastrointestinal: normoactive bowel sounds, soft, non-tender, non-distended Integumentary: normal Extremities: no cyanosis, no edema, no ischemia or petechiae, other (cold right foot with digital ischemia) Neurologic: non-focal exam (grossly), unable to assess Psychiatric: other (sedated) CBC and BMP: 11/06/16 05:00 11/06/16 05:00 ABG, PT/INR, D-dimer: ABG POC ABG pH 7.398 (7.35-7.45) 10/26/16 15:28 POC ABG pCO2 33.7 (35-45) L 10/26/16 15:28 POC ABG pO2 99 (80-105) 10/26/16 15:28 POC ABG HCO3 20.8 10/26/16 15:28 POC ABG Total CO2 22 10/26/16 15:28 POC ABG O2 Sat 98 10/26/16 15:28 PT/INR, D-dimer PT 16.4 Sec. (12.2-14.9) H 10/17/16 16:07 INR 1.33 (0.87-1.13) H 10/17/16 16:07 Abnormal lab findings: Abnormal Labs 10/13/16 10/13/16 10/13/16 06:38 06:38 07:23 WBC RBC Hgb Hct MCV RDW Plt Count Lymph % (Auto) [place] % (Auto) [place] # Seg Neutrophils % Seg Neuts % (Manual) Lymphocytes % (Manual) Monocytes % (Manual) Nucleated RBC % Seg Neutrophils # Seg Neutrophils # Man Lymphocytes # (Manual) Monocytes # (Manual) Eosinophils # (Manual) Basophils # (Manual) PT INR APTT Heparin Anti-Xa Level POC ABG pH POC ABG pCO2 POC ABG pO2 Sodium Potassium 6.2 H* Chloride Carbon Dioxide 8 L* BUN 85 H Creatinine 2.8 H Glucose 602 H* POC Glucose 495 H Calcium 7.9 L Phosphorus 6.9 H D Magnesium 3.0 H AST Alkaline Phosphatase C-Reactive Protein Total Protein Albumin Lipase Vitamin B12 TSH Urine WBC (Auto) Urine Chloride Urine Total Protein Crossmatch 10/13/16 10/13/16 10/13/16 08:49 08:55 10:12 WBC RBC Hgb Hct MCV RDW Plt Count Lymph % (Auto) [place] % (Auto) [place] # Seg Neutrophils % Seg Neuts % (Manual) Lymphocytes % (Manual) Monocytes % (Manual) Nucleated RBC % Seg Neutrophils # Seg Neutrophils # Man Lymphocytes # (Manual) Monocytes # (Manual) Eosinophils # (Manual) Basophils # (Manual) PT INR APTT Heparin Anti-Xa Level POC ABG pH POC ABG pCO2 POC ABG pO2 Sodium Potassium 5.6 H Chloride Carbon Dioxide 11 L BUN 77 H Creatinine 2.7 H Glucose 457 H POC Glucose > 500 H 424 H Calcium 8.0 L Phosphorus Magnesium AST Alkaline Phosphatase C-Reactive Protein Total Protein Albumin Lipase Vitamin B12 TSH Urine WBC (Auto) Urine Chloride Urine Total Protein Crossmatch 10/13/16 10/13/16 10/13/16 10:44 11:22 12:20 WBC RBC Hgb Hct MCV RDW Plt Count Lymph % (Auto) [place] % (Auto) [place] # Seg Neutrophils % Seg Neuts % (Manual) Lymphocytes % (Manual) Monocytes % (Manual) Nucleated RBC % Seg Neutrophils # Seg Neutrophils # Man Lymphocytes # (Manual) Monocytes # (Manual) Eosinophils # (Manual) Basophils # (Manual) PT INR APTT Heparin Anti-Xa Level POC ABG pH POC ABG pCO2 POC ABG pO2 Sodium Potassium 5.4 H Chloride Carbon Dioxide 14 L BUN 72 H Creatinine 2.6 H Glucose 383 H POC Glucose 391 H 313 H Calcium 8.2 L Phosphorus Magnesium AST Alkaline Phosphatase C-Reactive Protein Total Protein Albumin Lipase Vitamin B12 TSH Urine WBC (Auto) Urine Chloride Urine Total Protein Crossmatch 10/13/16 10/13/16 10/13/16 13:32 14:44 15:57 WBC RBC Hgb Hct MCV RDW Plt Count Lymph % (Auto) [place] % (Auto) [place] # Seg Neutrophils % Seg Neuts % (Manual) Lymphocytes % (Manual) Monocytes % (Manual) Nucleated RBC % Seg Neutrophils # Seg Neutrophils # Man Lymphocytes # (Manual) Monocytes # (Manual) Eosinophils # (Manual) Basophils # (Manual) PT INR APTT Heparin Anti-Xa Level POC ABG pH POC ABG pCO2 POC ABG pO2 Sodium Potassium Chloride Carbon Dioxide BUN Creatinine Glucose POC Glucose 296 H 210 H 190 H Calcium Phosphorus Magnesium AST Alkaline Phosphatase C-Reactive Protein Total Protein Albumin Lipase Vitamin B12 TSH Urine WBC (Auto) Urine Chloride Urine Total Protein Crossmatch 10/13/16 10/13/16 10/13/16 16:14 16:14 17:17 WBC RBC Hgb Hct MCV RDW Plt Count Lymph % (Auto) [place] % (Auto) [place] # Seg Neutrophils % Seg Neuts % (Manual) Lymphocytes % (Manual) Monocytes % (Manual) Nucleated RBC % Seg Neutrophils # Seg Neutrophils # Man Lymphocytes # (Manual) Monocytes # (Manual) Eosinophils # (Manual) Basophils # (Manual) PT INR APTT Heparin Anti-Xa Level POC ABG pH POC ABG pCO2 POC ABG pO2 Sodium Potassium Chloride Carbon Dioxide 17 L BUN 58 H Creatinine 1.8 H Glucose 172 H POC Glucose 193 H Calcium 7.7 L Phosphorus Magnesium AST Alkaline Phosphatase C-Reactive Protein 10.50 H Total Protein Albumin Lipase Vitamin B12 TSH Urine WBC (Auto) Urine Chloride Urine Total Protein Crossmatch 10/13/16 10/13/16 10/13/16 17:55 18:32 19:41 WBC RBC Hgb Hct MCV RDW Plt Count Lymph % (Auto) [place] % (Auto) [place] # Seg Neutrophils % Seg Neuts % (Manual) Lymphocytes % (Manual) Monocytes % (Manual) Nucleated RBC % Seg Neutrophils # Seg Neutrophils # Man Lymphocytes # (Manual) Monocytes # (Manual) Eosinophils # (Manual) Basophils # (Manual) PT INR APTT Heparin Anti-Xa Level POC ABG pH POC ABG pCO2 30.6 L POC ABG pO2 218 H Sodium Potassium Chloride Carbon Dioxide BUN Creatinine Glucose POC Glucose 192 H 177 H Calcium Phosphorus Magnesium AST Alkaline Phosphatase C-Reactive Protein Total Protein Albumin Lipase Vitamin B12 TSH Urine WBC (Auto) Urine Chloride Urine Total Protein Crossmatch 10/13/16 10/13/16 10/13/16 20:54 22:07 23:13 WBC RBC Hgb Hct MCV RDW Plt Count Lymph % (Auto) [place] % (Auto) [place] # Seg Neutrophils % Seg Neuts % (Manual) Lymphocytes % (Manual) Monocytes % (Manual) Nucleated RBC % Seg Neutrophils # Seg Neutrophils # Man Lymphocytes # (Manual) Monocytes # (Manual) Eosinophils # (Manual) Basophils # (Manual) PT INR APTT Heparin Anti-Xa Level POC ABG pH POC ABG pCO2 POC ABG pO2 Sodium Potassium Chloride Carbon Dioxide BUN Creatinine Glucose POC Glucose 178 H 160 H 168 H Calcium Phosphorus Magnesium AST Alkaline Phosphatase C-Reactive Protein Total Protein Albumin Lipase Vitamin B12 TSH Urine WBC (Auto) Urine Chloride Urine Total Protein Crossmatch 10/13/16 10/13/16 10/14/16 23:25 Unknown 00:21 WBC RBC Hgb Hct MCV RDW Plt Count Lymph % (Auto) [place] % (Auto) [place] # Seg Neutrophils % Seg Neuts % (Manual) Lymphocytes % (Manual) Monocytes % (Manual) Nucleated RBC % Seg Neutrophils # Seg Neutrophils # Man Lymphocytes # (Manual) Monocytes # (Manual) Eosinophils # (Manual) Basophils # (Manual) PT INR APTT Heparin Anti-Xa Level POC ABG pH POC ABG pCO2 POC ABG pO2 Sodium 148 H Potassium Chloride 114.6 H Carbon Dioxide 17 L BUN 56 H Creatinine 1.6 H Glucose 151 H POC Glucose 171 H Calcium 7.8 L Phosphorus Magnesium AST Alkaline Phosphatase C-Reactive Protein Total Protein Albumin Lipase Vitamin B12 TSH Urine WBC (Auto) Urine Chloride 10.0 L Urine Total Protein < 4 L Crossmatch 10/14/16 10/14/16 10/14/16 01:22 02:29 03:30 WBC RBC Hgb Hct MCV RDW Plt Count Lymph % (Auto) [place] % (Auto) [place] # Seg Neutrophils % Seg Neuts % (Manual) Lymphocytes % (Manual) Monocytes % (Manual) Nucleated RBC % Seg Neutrophils # Seg Neutrophils # Man Lymphocytes # (Manual) Monocytes # (Manual) Eosinophils # (Manual) Basophils # (Manual) PT INR APTT Heparin Anti-Xa Level POC ABG pH POC ABG pCO2 POC ABG pO2 Sodium Potassium Chloride Carbon Dioxide BUN Creatinine Glucose POC Glucose 144 H 136 H 143 H Calcium Phosphorus Magnesium AST Alkaline Phosphatase C-Reactive Protein Total Protein Albumin Lipase Vitamin B12 TSH Urine WBC (Auto) Urine Chloride Urine Total Protein Crossmatch 10/14/16 10/14/16 10/14/16 04:28 05:16 05:44 WBC RBC Hgb Hct MCV RDW Plt Count Lymph % (Auto) [place] % (Auto) [place] # Seg Neutrophils % Seg Neuts % (Manual) Lymphocytes % (Manual) Monocytes % (Manual) Nucleated RBC % Seg Neutrophils # Seg Neutrophils # Man Lymphocytes # (Manual) Monocytes # (Manual) Eosinophils # (Manual) Basophils # (Manual) PT INR APTT Heparin Anti-Xa Level POC ABG pH POC ABG pCO2 28.2 L POC ABG pO2 125 H Sodium Potassium Chloride Carbon Dioxide BUN Creatinine Glucose POC Glucose 133 H 160 H Calcium Phosphorus Magnesium AST Alkaline Phosphatase C-Reactive Protein Total Protein Albumin Lipase Vitamin B12 TSH Urine WBC (Auto) Urine Chloride Urine Total Protein Crossmatch 10/14/16 10/14/16 10/14/16 06:12 06:45 07:03 WBC RBC Hgb Hct MCV RDW Plt Count Lymph % (Auto) [place] % (Auto) [place] # Seg Neutrophils % Seg Neuts % (Manual) Lymphocytes % (Manual) Monocytes % (Manual) Nucleated RBC % Seg Neutrophils # Seg Neutrophils # Man Lymphocytes # (Manual) Monocytes # (Manual) Eosinophils # (Manual) Basophils # (Manual) PT INR APTT Heparin Anti-Xa Level POC ABG pH POC ABG pCO2 POC ABG pO2 Sodium 149 H Potassium Chloride 115.4 H Carbon Dioxide 17 L BUN 45 H Creatinine 1.5 H Glucose 139 H POC Glucose 149 H Calcium 7.4 L Phosphorus 1.0 L D Magnesium AST Alkaline Phosphatase C-Reactive Protein Total Protein Albumin Lipase Vitamin B12 TSH Urine WBC (Auto) Urine Chloride Urine Total Protein Crossmatch 10/14/16 10/14/16 10/14/16 07:03 08:02 09:16 WBC RBC Hgb Hct MCV RDW Plt Count Lymph % (Auto) [place] % (Auto) [place] # Seg Neutrophils % Seg Neuts % (Manual) Lymphocytes % (Manual) Monocytes % (Manual) Nucleated RBC % Seg Neutrophils # Seg Neutrophils # Man Lymphocytes # (Manual) Monocytes # (Manual) Eosinophils # (Manual) Basophils # (Manual) PT INR APTT Heparin Anti-Xa Level POC ABG pH POC ABG pCO2 POC ABG pO2 Sodium Potassium Chloride Carbon Dioxide BUN Creatinine Glucose POC Glucose 156 H 158 H Calcium Phosphorus Magnesium AST Alkaline Phosphatase C-Reactive Protein Total Protein Albumin Lipase 738 H Vitamin B12 TSH Urine WBC (Auto) Urine Chloride Urine Total Protein Crossmatch 10/14/16 10/14/16 10/14/16 10:26 11:03 11:57 WBC RBC Hgb Hct MCV RDW Plt Count Lymph % (Auto) [place] % (Auto) [place] # Seg Neutrophils % Seg Neuts % (Manual) Lymphocytes % (Manual) Monocytes % (Manual) Nucleated RBC % Seg Neutrophils # Seg Neutrophils # Man Lymphocytes # (Manual) Monocytes # (Manual) Eosinophils # (Manual) Basophils # (Manual) PT INR APTT Heparin Anti-Xa Level POC ABG pH 7.198 L POC ABG pCO2 47.5 H POC ABG pO2 Sodium Potassium Chloride Carbon Dioxide BUN Creatinine Glucose POC Glucose 174 H 189 H Calcium Phosphorus Magnesium AST Alkaline Phosphatase C-Reactive Protein Total Protein Albumin Lipase Vitamin B12 TSH Urine WBC (Auto) Urine Chloride Urine Total Protein Crossmatch 10/14/16 10/14/16 10/14/16 12:02 12:02 13:11 WBC 13.4 H RBC 3.60 L Hgb Hct MCV 98 H D RDW 13.1 L Plt Count Lymph % (Auto) [place] % (Auto) [place] # Seg Neutrophils % Seg Neuts % (Manual) Lymphocytes % (Manual) Monocytes % (Manual) Nucleated RBC % Seg Neutrophils # Seg Neutrophils # Man Lymphocytes # (Manual) Monocytes # (Manual) Eosinophils # (Manual) Basophils # (Manual) PT INR APTT Heparin Anti-Xa Level POC ABG pH POC ABG pCO2 POC ABG pO2 Sodium Potassium Chloride 110.7 H Carbon Dioxide 19 L BUN 38 H Creatinine 1.4 H Glucose 182 H POC Glucose 173 H Calcium 7.5 L Phosphorus Magnesium AST Alkaline Phosphatase C-Reactive Protein Total Protein Albumin Lipase Vitamin B12 TSH Urine WBC (Auto) Urine Chloride Urine Total Protein Crossmatch 10/14/16 10/14/16 10/14/16 14:24 15:31 16:36 WBC RBC Hgb Hct MCV RDW Plt Count Lymph % (Auto) [place] % (Auto) [place] # Seg Neutrophils % Seg Neuts % (Manual) Lymphocytes % (Manual) Monocytes % (Manual) Nucleated RBC % Seg Neutrophils # Seg Neutrophils # Man Lymphocytes # (Manual) Monocytes # (Manual) Eosinophils # (Manual) Basophils # (Manual) PT INR APTT Heparin Anti-Xa Level POC ABG pH POC ABG pCO2 POC ABG pO2 Sodium Potassium Chloride Carbon Dioxide BUN Creatinine Glucose POC Glucose 123 H 124 H 156 H Calcium Phosphorus Magnesium AST Alkaline Phosphatase C-Reactive Protein Total Protein Albumin Lipase Vitamin B12 TSH Urine WBC (Auto) Urine Chloride Urine Total Protein Crossmatch 10/14/16 10/14/16 10/14/16 17:43 19:00 20:08 WBC RBC Hgb Hct MCV RDW Plt Count Lymph % (Auto) [place] % (Auto) [place] # Seg Neutrophils % Seg Neuts % (Manual) Lymphocytes % (Manual) Monocytes % (Manual) Nucleated RBC % Seg Neutrophils # Seg Neutrophils # Man Lymphocytes # (Manual) Monocytes # (Manual) Eosinophils # (Manual) Basophils # (Manual) PT INR APTT Heparin Anti-Xa Level POC ABG pH POC ABG pCO2 POC ABG pO2 Sodium Potassium Chloride Carbon Dioxide BUN Creatinine Glucose POC Glucose 154 H 123 H 138 H Calcium Phosphorus Magnesium AST Alkaline Phosphatase C-Reactive Protein Total Protein Albumin Lipase Vitamin B12 TSH Urine WBC (Auto) Urine Chloride Urine Total Protein Crossmatch 10/14/16 10/14/16 10/14/16 21:17 22:25 23:37 WBC RBC Hgb Hct MCV RDW Plt Count Lymph % (Auto) [place] % (Auto) [place] # Seg Neutrophils % Seg Neuts % (Manual) Lymphocytes % (Manual) Monocytes % (Manual) Nucleated RBC % Seg Neutrophils # Seg Neutrophils # Man Lymphocytes # (Manual) Monocytes # (Manual) Eosinophils # (Manual) Basophils # (Manual) PT INR APTT Heparin Anti-Xa Level POC ABG pH POC ABG pCO2 POC ABG pO2 Sodium Potassium Chloride Carbon Dioxide BUN Creatinine Glucose POC Glucose 148 H 132 H 137 H Calcium Phosphorus Magnesium AST Alkaline Phosphatase C-Reactive Protein Total Protein Albumin Lipase Vitamin B12 TSH Urine WBC (Auto) Urine Chloride Urine Total Protein Crossmatch 10/15/16 10/15/16 10/15/16 00:49 01:53 03:06 WBC RBC Hgb Hct MCV RDW Plt Count Lymph % (Auto) [place] % (Auto) [place] # Seg Neutrophils % Seg Neuts % (Manual) Lymphocytes % (Manual) Monocytes % (Manual) Nucleated RBC % Seg Neutrophils # Seg Neutrophils # Man Lymphocytes # (Manual) Monocytes # (Manual) Eosinophils # (Manual) Basophils # (Manual) PT INR APTT Heparin Anti-Xa Level POC ABG pH POC ABG pCO2 POC ABG pO2 Sodium Potassium Chloride Carbon Dioxide BUN Creatinine Glucose POC Glucose 132 H 134 H 134 H Calcium Phosphorus Magnesium AST Alkaline Phosphatase C-Reactive Protein Total Protein Albumin Lipase Vitamin B12 TSH Urine WBC (Auto) Urine Chloride Urine Total Protein Crossmatch 10/15/16 10/15/16 10/15/16 04:40 04:46 06:21 WBC RBC Hgb Hct MCV RDW Plt Count Lymph % (Auto) [place] % (Auto) [place] # Seg Neutrophils % Seg Neuts % (Manual) Lymphocytes % (Manual) Monocytes % (Manual) Nucleated RBC % Seg Neutrophils # Seg Neutrophils # Man Lymphocytes # (Manual) Monocytes # (Manual) Eosinophils # (Manual) Basophils # (Manual) PT INR APTT Heparin Anti-Xa Level POC ABG pH POC ABG pCO2 30.7 L POC ABG pO2 108 H Sodium Potassium Chloride 109.0 H Carbon Dioxide 17 L BUN 27 H Creatinine Glucose 124 H POC Glucose 160 H Calcium 7.5 L Phosphorus Magnesium AST 79 H Alkaline Phosphatase C-Reactive Protein Total Protein 5.5 L Albumin 3.0 L Lipase Vitamin B12 TSH Urine WBC (Auto) Urine Chloride Urine Total Protein Crossmatch 10/15/16 10/15/16 10/15/16 07:12 08:01 09:03 WBC RBC Hgb Hct MCV RDW Plt Count Lymph % (Auto) [place] % (Auto) [place] # Seg Neutrophils % Seg Neuts % (Manual) Lymphocytes % (Manual) Monocytes % (Manual) Nucleated RBC % Seg Neutrophils # Seg Neutrophils # Man Lymphocytes # (Manual) Monocytes # (Manual) Eosinophils # (Manual) Basophils # (Manual) PT INR APTT Heparin Anti-Xa Level POC ABG pH POC ABG pCO2 POC ABG pO2 Sodium Potassium Chloride Carbon Dioxide BUN Creatinine Glucose POC Glucose 179 H 187 H 165 H Calcium Phosphorus Magnesium AST Alkaline Phosphatase C-Reactive Protein Total Protein Albumin Lipase Vitamin B12 TSH Urine WBC (Auto) Urine Chloride Urine Total Protein Crossmatch 10/15/16 10/15/16 10/15/16 10:06 10:06 10:07 WBC 12.1 H RBC 3.01 L Hgb 9.7 L Hct 29.6 L MCV 98 H RDW Plt Count 129 L Lymph % (Auto) [place] % (Auto) [place] # Seg Neutrophils % Seg Neuts % (Manual) Lymphocytes % (Manual) Monocytes % (Manual) Nucleated RBC % Seg Neutrophils # Seg Neutrophils # Man Lymphocytes # (Manual) Monocytes # (Manual) Eosinophils # (Manual) Basophils # (Manual) PT INR APTT Heparin Anti-Xa Level POC ABG pH POC ABG pCO2 POC ABG pO2 Sodium Potassium 3.2 L D Chloride 109.6 H Carbon Dioxide 18 L BUN 22 H Creatinine Glucose 127 H POC Glucose 147 H Calcium 7.0 L Phosphorus Magnesium AST Alkaline Phosphatase C-Reactive Protein Total Protein Albumin Lipase Vitamin B12 TSH Urine WBC (Auto) Urine Chloride Urine Total Protein Crossmatch 10/15/16 10/15/16 10/15/16 11:05 11:06 11:57 WBC RBC Hgb Hct MCV RDW Plt Count Lymph % (Auto) [place] % (Auto) [place] # Seg Neutrophils % Seg Neuts % (Manual) Lymphocytes % (Manual) Monocytes % (Manual) Nucleated RBC % Seg Neutrophils # Seg Neutrophils # Man Lymphocytes # (Manual) Monocytes # (Manual) Eosinophils # (Manual) Basophils # (Manual) PT INR APTT Heparin Anti-Xa Level POC ABG pH 7.305 L POC ABG pCO2 POC ABG pO2 Sodium Potassium Chloride Carbon Dioxide BUN Creatinine Glucose POC Glucose 145 H Calcium Phosphorus Magnesium AST Alkaline Phosphatase C-Reactive Protein Total Protein Albumin Lipase Vitamin B12 TSH Urine WBC (Auto) 7.0 H Urine Chloride Urine Total Protein Crossmatch 10/15/16 10/15/16 10/15/16 12:04 13:59 15:24 WBC RBC Hgb Hct MCV RDW Plt Count Lymph % (Auto) [place] % (Auto) [place] # Seg Neutrophils % Seg Neuts % (Manual) Lymphocytes % (Manual) Monocytes % (Manual) Nucleated RBC % Seg Neutrophils # Seg Neutrophils # Man Lymphocytes # (Manual) Monocytes # (Manual) Eosinophils # (Manual) Basophils # (Manual) PT INR APTT Heparin Anti-Xa Level POC ABG pH POC ABG pCO2 POC ABG pO2 Sodium Potassium Chloride Carbon Dioxide BUN Creatinine Glucose POC Glucose 123 H 147 H 153 H Calcium Phosphorus Magnesium AST Alkaline Phosphatase C-Reactive Protein Total Protein Albumin Lipase Vitamin B12 TSH Urine WBC (Auto) Urine Chloride Urine Total Protein Crossmatch 10/15/16 10/15/16 10/15/16 16:30 17:34 18:30 WBC RBC Hgb Hct MCV RDW Plt Count Lymph % (Auto) [place] % (Auto) [place] # Seg Neutrophils % Seg Neuts % (Manual) Lymphocytes % (Manual) Monocytes % (Manual) Nucleated RBC % Seg Neutrophils # Seg Neutrophils # Man Lymphocytes # (Manual) Monocytes # (Manual) Eosinophils # (Manual) Basophils # (Manual) PT INR APTT Heparin Anti-Xa Level POC ABG pH POC ABG pCO2 POC ABG pO2 Sodium Potassium Chloride Carbon Dioxide BUN Creatinine Glucose POC Glucose 223 H 236 H 164 H Calcium Phosphorus Magnesium AST Alkaline Phosphatase C-Reactive Protein Total Protein Albumin Lipase Vitamin B12 TSH Urine WBC (Auto) Urine Chloride Urine Total Protein Crossmatch 10/15/16 10/15/16 10/15/16 19:14 20:31 21:23 WBC RBC Hgb Hct MCV RDW Plt Count Lymph % (Auto) [place] % (Auto) [place] # Seg Neutrophils % Seg Neuts % (Manual) Lymphocytes % (Manual) Monocytes % (Manual) Nucleated RBC % Seg Neutrophils # Seg Neutrophils # Man Lymphocytes # (Manual) Monocytes # (Manual) Eosinophils # (Manual) Basophils # (Manual) PT INR APTT Heparin Anti-Xa Level POC ABG pH POC ABG pCO2 POC ABG pO2 Sodium Potassium Chloride Carbon Dioxide BUN Creatinine Glucose POC Glucose 138 H 158 H 158 H Calcium Phosphorus Magnesium AST Alkaline Phosphatase C-Reactive Protein Total Protein Albumin Lipase Vitamin B12 TSH Urine WBC (Auto) Urine Chloride Urine Total Protein Crossmatch 10/15/16 10/15/16 10/16/16 22:04 22:57 00:11 WBC RBC Hgb Hct MCV RDW Plt Count Lymph % (Auto) [place] % (Auto) [place] # Seg Neutrophils % Seg Neuts % (Manual) Lymphocytes % (Manual) Monocytes % (Manual) Nucleated RBC % Seg Neutrophils # Seg Neutrophils # Man Lymphocytes # (Manual) Monocytes # (Manual) Eosinophils # (Manual) Basophils # (Manual) PT INR APTT Heparin Anti-Xa Level POC ABG pH POC ABG pCO2 POC ABG pO2 Sodium Potassium Chloride Carbon Dioxide BUN Creatinine Glucose POC Glucose 168 H 213 H 166 H Calcium Phosphorus Magnesium AST Alkaline Phosphatase C-Reactive Protein Total Protein Albumin Lipase Vitamin B12 TSH Urine WBC (Auto) Urine Chloride Urine Total Protein Crossmatch 10/16/16 10/16/16 10/16/16 01:16 02:32 03:38 WBC RBC Hgb Hct MCV RDW Plt Count Lymph % (Auto) [place] % (Auto) [place] # Seg Neutrophils % Seg Neuts % (Manual) Lymphocytes % (Manual) Monocytes % (Manual) Nucleated RBC % Seg Neutrophils # Seg Neutrophils # Man Lymphocytes # (Manual) Monocytes # (Manual) Eosinophils # (Manual) Basophils # (Manual) PT INR APTT Heparin Anti-Xa Level POC ABG pH POC ABG pCO2 POC ABG pO2 Sodium Potassium Chloride Carbon Dioxide BUN Creatinine Glucose POC Glucose 171 H 164 H 147 H Calcium Phosphorus Magnesium AST Alkaline Phosphatase C-Reactive Protein Total Protein Albumin Lipase Vitamin B12 TSH Urine WBC (Auto) Urine Chloride Urine Total Protein Crossmatch 10/16/16 10/16/16 10/16/16 04:14 04:14 04:49 WBC RBC Hgb Hct MCV RDW Plt Count Lymph % (Auto) [place] % (Auto) [place] # Seg Neutrophils % Seg Neuts % (Manual) Lymphocytes % (Manual) Monocytes % (Manual) Nucleated RBC % Seg Neutrophils # Seg Neutrophils # Man Lymphocytes # (Manual) Monocytes # (Manual) Eosinophils # (Manual) Basophils # (Manual) PT INR APTT Heparin Anti-Xa Level POC ABG pH POC ABG pCO2 POC ABG pO2 Sodium 147 H Potassium Chloride 110.9 H Carbon Dioxide 19 L BUN Creatinine Glucose 139 H POC Glucose 144 H Calcium 7.3 L Phosphorus 2.3 L Magnesium AST Alkaline Phosphatase C-Reactive Protein Total Protein Albumin Lipase 143 H Vitamin B12 TSH Urine WBC (Auto) Urine Chloride Urine Total Protein Crossmatch 10/16/16 10/16/16 10/16/16 05:03 05:41 05:58 WBC 16.5 H RBC 3.36 L Hgb Hct MCV 98 H RDW 13.1 L Plt Count Lymph % (Auto) 8.5 L [place] % (Auto) 7.6 H [place] # 1.3 H Seg Neutrophils % 83.3 H Seg Neuts % (Manual) Lymphocytes % (Manual) Monocytes % (Manual) Nucleated RBC % Seg Neutrophils # 13.8 H Seg Neutrophils # Man Lymphocytes # (Manual) Monocytes # (Manual) Eosinophils # (Manual) Basophils # (Manual) PT INR APTT Heparin Anti-Xa Level POC ABG pH POC ABG pCO2 30.7 L POC ABG pO2 128 H Sodium Potassium Chloride Carbon Dioxide BUN Creatinine Glucose POC Glucose 131 H Calcium Phosphorus Magnesium AST Alkaline Phosphatase C-Reactive Protein Total Protein Albumin Lipase Vitamin B12 TSH Urine WBC (Auto) Urine Chloride Urine Total Protein Crossmatch 10/16/16 10/16/16 10/16/16 06:32 09:27 09:35 WBC RBC Hgb Hct MCV RDW Plt Count Lymph % (Auto) [place] % (Auto) [place] # Seg Neutrophils % Seg Neuts % (Manual) Lymphocytes % (Manual) Monocytes % (Manual) Nucleated RBC % Seg Neutrophils # Seg Neutrophils # Man Lymphocytes # (Manual) Monocytes # (Manual) Eosinophils # (Manual) Basophils # (Manual) PT INR APTT Heparin Anti-Xa Level POC ABG pH POC ABG pCO2 32.8 L POC ABG pO2 137 H Sodium Potassium Chloride Carbon Dioxide BUN Creatinine Glucose POC Glucose 121 H 150 H Calcium Phosphorus Magnesium AST Alkaline Phosphatase C-Reactive Protein Total Protein Albumin Lipase Vitamin B12 TSH Urine WBC (Auto) Urine Chloride Urine Total Protein Crossmatch 10/16/16 10/16/16 10/16/16 10:47 13:27 14:24 WBC RBC Hgb Hct MCV RDW Plt Count Lymph % (Auto) [place] % (Auto) [place] # Seg Neutrophils % Seg Neuts % (Manual) Lymphocytes % (Manual) Monocytes % (Manual) Nucleated RBC % Seg Neutrophils # Seg Neutrophils # Man Lymphocytes # (Manual) Monocytes # (Manual) Eosinophils # (Manual) Basophils # (Manual) PT INR APTT Heparin Anti-Xa Level POC ABG pH POC ABG pCO2 POC ABG pO2 Sodium Potassium Chloride Carbon Dioxide BUN Creatinine Glucose POC Glucose 184 H 171 H 174 H Calcium Phosphorus Magnesium AST Alkaline Phosphatase C-Reactive Protein Total Protein Albumin Lipase Vitamin B12 TSH Urine WBC (Auto) Urine Chloride Urine Total Protein Crossmatch 10/16/16 10/16/16 10/16/16 15:48 16:26 18:17 WBC RBC Hgb Hct MCV RDW Plt Count Lymph % (Auto) [place] % (Auto) [place] # Seg Neutrophils % Seg Neuts % (Manual) Lymphocytes % (Manual) Monocytes % (Manual) Nucleated RBC % Seg Neutrophils # Seg Neutrophils # Man Lymphocytes # (Manual) Monocytes # (Manual) Eosinophils # (Manual) Basophils # (Manual) PT INR APTT Heparin Anti-Xa Level POC ABG pH POC ABG pCO2 POC ABG pO2 Sodium Potassium Chloride Carbon Dioxide BUN Creatinine Glucose POC Glucose 205 H 204 H 234 H Calcium Phosphorus Magnesium AST Alkaline Phosphatase C-Reactive Protein Total Protein Albumin Lipase Vitamin B12 TSH Urine WBC (Auto) Urine Chloride Urine Total Protein Crossmatch 10/16/16 10/16/16 10/16/16 19:40 20:33 21:36 WBC RBC Hgb Hct MCV RDW Plt Count Lymph % (Auto) [place] % (Auto) [place] # Seg Neutrophils % Seg Neuts % (Manual) Lymphocytes % (Manual) Monocytes % (Manual) Nucleated RBC % Seg Neutrophils # Seg Neutrophils # Man Lymphocytes # (Manual) Monocytes # (Manual) Eosinophils # (Manual) Basophils # (Manual) PT INR APTT Heparin Anti-Xa Level POC ABG pH POC ABG pCO2 POC ABG pO2 Sodium Potassium Chloride Carbon Dioxide BUN Creatinine Glucose POC Glucose 167 H 153 H 158 H Calcium Phosphorus Magnesium AST Alkaline Phosphatase C-Reactive Protein Total Protein Albumin Lipase Vitamin B12 TSH Urine WBC (Auto) Urine Chloride Urine Total Protein Crossmatch 10/16/16 10/16/16 10/17/16 22:54 23:48 00:47 WBC RBC Hgb Hct MCV RDW Plt Count Lymph % (Auto) [place] % (Auto) [place] # Seg Neutrophils % Seg Neuts % (Manual) Lymphocytes % (Manual) Monocytes % (Manual) Nucleated RBC % Seg Neutrophils # Seg Neutrophils # Man Lymphocytes # (Manual) Monocytes # (Manual) Eosinophils # (Manual) Basophils # (Manual) PT INR APTT Heparin Anti-Xa Level POC ABG pH POC ABG pCO2 POC ABG pO2 Sodium Potassium Chloride Carbon Dioxide BUN Creatinine Glucose POC Glucose 180 H 207 H 196 H Calcium Phosphorus Magnesium AST Alkaline Phosphatase C-Reactive Protein Total Protein Albumin Lipase Vitamin B12 TSH Urine WBC (Auto) Urine Chloride Urine Total Protein Crossmatch 10/17/16 10/17/16 10/17/16 01:57 02:49 03:50 WBC RBC Hgb Hct MCV RDW Plt Count Lymph % (Auto) [place] % (Auto) [place] # Seg Neutrophils % Seg Neuts % (Manual) Lymphocytes % (Manual) Monocytes % (Manual) Nucleated RBC % Seg Neutrophils # Seg Neutrophils # Man Lymphocytes # (Manual) Monocytes # (Manual) Eosinophils # (Manual) Basophils # (Manual) PT INR APTT Heparin Anti-Xa Level POC ABG pH POC ABG pCO2 POC ABG pO2 Sodium Potassium Chloride Carbon Dioxide BUN Creatinine Glucose POC Glucose 180 H 151 H 106 H Calcium Phosphorus Magnesium AST Alkaline Phosphatase C-Reactive Protein Total Protein Albumin Lipase Vitamin B12 TSH Urine WBC (Auto) Urine Chloride Urine Total Protein Crossmatch 10/17/16 10/17/16 10/17/16 04:59 06:03 06:35 WBC RBC Hgb Hct MCV RDW Plt Count Lymph % (Auto) [place] % (Auto) [place] # Seg Neutrophils % Seg Neuts % (Manual) Lymphocytes % (Manual) Monocytes % (Manual) Nucleated RBC % Seg Neutrophils # Seg Neutrophils # Man Lymphocytes # (Manual) Monocytes # (Manual) Eosinophils # (Manual) Basophils # (Manual) PT INR APTT Heparin Anti-Xa Level POC ABG pH 7.453 H POC ABG pCO2 30.1 L POC ABG pO2 111 H Sodium Potassium Chloride Carbon Dioxide BUN Creatinine Glucose POC Glucose 145 H 157 H Calcium Phosphorus Magnesium AST Alkaline Phosphatase C-Reactive Protein Total Protein Albumin Lipase Vitamin B12 TSH Urine WBC (Auto) Urine Chloride Urine Total Protein Crossmatch 10/17/16 10/17/16 10/17/16 07:08 07:11 08:01 WBC RBC Hgb Hct MCV RDW Plt Count Lymph % (Auto) [place] % (Auto) [place] # Seg Neutrophils % Seg Neuts % (Manual) Lymphocytes % (Manual) Monocytes % (Manual) Nucleated RBC % Seg Neutrophils # Seg Neutrophils # Man Lymphocytes # (Manual) Monocytes # (Manual) Eosinophils # (Manual) Basophils # (Manual) PT INR APTT Heparin Anti-Xa Level POC ABG pH POC ABG pCO2 POC ABG pO2 Sodium 147 H Potassium Chloride 113.8 H Carbon Dioxide 19 L BUN Creatinine Glucose 136 H POC Glucose 136 H 152 H Calcium 7.7 L Phosphorus Magnesium AST Alkaline Phosphatase C-Reactive Protein Total Protein Albumin Lipase Vitamin B12 TSH Urine WBC (Auto) Urine Chloride Urine Total Protein Crossmatch 10/17/16 10/17/16 10/17/16 08:23 09:17 09:53 WBC 18.1 H RBC 3.01 L Hgb 9.7 L Hct 29.4 L MCV 98 H RDW Plt Count 116 L Lymph % (Auto) [place] % (Auto) [place] # Seg Neutrophils % Seg Neuts % (Manual) 77.0 H Lymphocytes % (Manual) 4.0 L Monocytes % (Manual) 12.0 H Nucleated RBC % Seg Neutrophils # Seg Neutrophils # Man 13.9 H Lymphocytes # (Manual) 0.7 L Monocytes # (Manual) 2.2 H Eosinophils # (Manual) Basophils # (Manual) PT INR APTT Heparin Anti-Xa Level POC ABG pH POC ABG pCO2 POC ABG pO2 Sodium Potassium Chloride Carbon Dioxide BUN Creatinine Glucose POC Glucose 148 H 137 H Calcium Phosphorus Magnesium AST Alkaline Phosphatase C-Reactive Protein Total Protein Albumin Lipase Vitamin B12 TSH Urine WBC (Auto) Urine Chloride Urine Total Protein Crossmatch 10/17/16 10/17/16 10/17/16 11:43 16:07 17:42 WBC RBC Hgb Hct MCV RDW Plt Count Lymph % (Auto) [place] % (Auto) [place] # Seg Neutrophils % Seg Neuts % (Manual) Lymphocytes % (Manual) Monocytes % (Manual) Nucleated RBC % Seg Neutrophils # Seg Neutrophils # Man Lymphocytes # (Manual) Monocytes # (Manual) Eosinophils # (Manual) Basophils # (Manual) PT 16.4 H INR 1.33 H APTT 38.8 H Heparin Anti-Xa Level POC ABG pH POC ABG pCO2 POC ABG pO2 Sodium Potassium Chloride Carbon Dioxide BUN Creatinine Glucose POC Glucose 179 H 153 H Calcium Phosphorus Magnesium AST Alkaline Phosphatase C-Reactive Protein Total Protein Albumin Lipase Vitamin B12 TSH Urine WBC (Auto) Urine Chloride Urine Total Protein Crossmatch 10/17/16 10/18/16 10/18/16 22:54 04:37 05:39 WBC RBC Hgb Hct MCV RDW Plt Count Lymph % (Auto) [place] % (Auto) [place] # Seg Neutrophils % Seg Neuts % (Manual) Lymphocytes % (Manual) Monocytes % (Manual) Nucleated RBC % Seg Neutrophils # Seg Neutrophils # Man Lymphocytes # (Manual) Monocytes # (Manual) Eosinophils # (Manual) Basophils # (Manual) PT INR APTT Heparin Anti-Xa Level 0.27 L POC ABG pH 7.454 H POC ABG pCO2 30.8 L POC ABG pO2 115 H Sodium Potassium Chloride Carbon Dioxide BUN Creatinine Glucose POC Glucose 69 L Calcium Phosphorus Magnesium AST Alkaline Phosphatase C-Reactive Protein Total Protein Albumin Lipase Vitamin B12 TSH Urine WBC (Auto) Urine Chloride Urine Total Protein Crossmatch 10/18/16 10/18/16 10/18/16 06:46 06:46 06:46 WBC 20.5 H RBC 2.62 L Hgb 8.4 L Hct 26.0 L MCV 100 H RDW Plt Count Lymph % (Auto) [place] % (Auto) [place] # Seg Neutrophils % Seg Neuts % (Manual) 75.0 H Lymphocytes % (Manual) 9.0 L Monocytes % (Manual) 14.0 H Nucleated RBC % Seg Neutrophils # Seg Neutrophils # Man 15.4 H Lymphocytes # (Manual) Monocytes # (Manual) 2.9 H Eosinophils # (Manual) Basophils # (Manual) PT INR APTT Heparin Anti-Xa Level POC ABG pH POC ABG pCO2 POC ABG pO2 Sodium Potassium Chloride 110.6 H Carbon Dioxide BUN Creatinine 1.3 H Glucose 153 H POC Glucose Calcium 8.0 L Phosphorus Magnesium 1.6 L AST Alkaline Phosphatase C-Reactive Protein Total Protein Albumin Lipase Vitamin B12 TSH Urine WBC (Auto) Urine Chloride Urine Total Protein Crossmatch 10/18/16 10/18/16 10/18/16 07:30 11:37 17:51 WBC RBC Hgb Hct MCV RDW Plt Count Lymph % (Auto) [place] % (Auto) [place] # Seg Neutrophils % Seg Neuts % (Manual) Lymphocytes % (Manual) Monocytes % (Manual) Nucleated RBC % Seg Neutrophils # Seg Neutrophils # Man Lymphocytes # (Manual) Monocytes # (Manual) Eosinophils # (Manual) Basophils # (Manual) PT INR APTT Heparin Anti-Xa Level POC ABG pH POC ABG pCO2 POC ABG pO2 Sodium Potassium Chloride Carbon Dioxide BUN Creatinine Glucose POC Glucose 162 H 156 H 164 H Calcium Phosphorus Magnesium AST Alkaline Phosphatase C-Reactive Protein Total Protein Albumin Lipase Vitamin B12 TSH Urine WBC (Auto) Urine Chloride Urine Total Protein Crossmatch 10/18/16 10/19/16 10/19/16 23:44 03:59 05:13 WBC 18.2 H RBC 2.76 L Hgb 9.0 L Hct 27.7 L MCV 100 H RDW Plt Count Lymph % (Auto) [place] % (Auto) [place] # Seg Neutrophils % Seg Neuts % (Manual) 76.0 H Lymphocytes % (Manual) 10.0 L Monocytes % (Manual) Nucleated RBC % Seg Neutrophils # Seg Neutrophils # Man 13.8 H Lymphocytes # (Manual) Monocytes # (Manual) Eosinophils # (Manual) Basophils # (Manual) PT INR APTT Heparin Anti-Xa Level POC ABG pH POC ABG pCO2 32.2 L POC ABG pO2 128 H Sodium Potassium Chloride Carbon Dioxide BUN Creatinine Glucose POC Glucose 278 H Calcium Phosphorus Magnesium AST Alkaline Phosphatase C-Reactive Protein Total Protein Albumin Lipase Vitamin B12 TSH Urine WBC (Auto) Urine Chloride Urine Total Protein Crossmatch 10/19/16 10/19/16 10/19/16 06:01 06:30 12:20 WBC RBC Hgb Hct MCV RDW Plt Count Lymph % (Auto) [place] % (Auto) [place] # Seg Neutrophils % Seg Neuts % (Manual) Lymphocytes % (Manual) Monocytes % (Manual) Nucleated RBC % Seg Neutrophils # Seg Neutrophils # Man Lymphocytes # (Manual) Monocytes # (Manual) Eosinophils # (Manual) Basophils # (Manual) PT INR APTT Heparin Anti-Xa Level POC ABG pH POC ABG pCO2 POC ABG pO2 Sodium Potassium Chloride Carbon Dioxide 18 L BUN Creatinine 1.3 H Glucose 262 H POC Glucose 261 H 349 H Calcium 7.7 L Phosphorus 4.8 H D Magnesium AST Alkaline Phosphatase C-Reactive Protein Total Protein Albumin Lipase Vitamin B12 TSH Urine WBC (Auto) Urine Chloride Urine Total Protein Crossmatch 10/19/16 10/20/16 10/20/16 16:48 00:17 05:20 WBC 22.5 H RBC 2.80 L Hgb 8.9 L Hct 28.3 L MCV 101 H RDW Plt Count Lymph % (Auto) [place] % (Auto) [place] # Seg Neutrophils % Seg Neuts % (Manual) Lymphocytes % (Manual) 10.0 L Monocytes % (Manual) Nucleated RBC % Seg Neutrophils # Seg Neutrophils # Man 13.3 H Lymphocytes # (Manual) Monocytes # (Manual) 1.1 H Eosinophils # (Manual) 0.7 H Basophils # (Manual) PT INR APTT Heparin Anti-Xa Level POC ABG pH POC ABG pCO2 POC ABG pO2 Sodium Potassium Chloride Carbon Dioxide BUN Creatinine Glucose POC Glucose 248 H 346 H Calcium Phosphorus Magnesium AST Alkaline Phosphatase C-Reactive Protein Total Protein Albumin Lipase Vitamin B12 TSH Urine WBC (Auto) Urine Chloride Urine Total Protein Crossmatch 10/20/16 10/20/16 10/20/16 05:20 05:20 06:05 WBC RBC Hgb Hct MCV RDW Plt Count Lymph % (Auto) [place] % (Auto) [place] # Seg Neutrophils % Seg Neuts % (Manual) Lymphocytes % (Manual) Monocytes % (Manual) Nucleated RBC % Seg Neutrophils # Seg Neutrophils # Man Lymphocytes # (Manual) Monocytes # (Manual) Eosinophils # (Manual) Basophils # (Manual) PT INR APTT Heparin Anti-Xa Level 0.20 L POC ABG pH POC ABG pCO2 POC ABG pO2 Sodium Potassium Chloride Carbon Dioxide BUN 20 H Creatinine Glucose 374 H POC Glucose 337 H Calcium 8.3 L Phosphorus Magnesium AST Alkaline Phosphatase C-Reactive Protein Total Protein Albumin Lipase Vitamin B12 TSH Urine WBC (Auto) Urine Chloride Urine Total Protein Crossmatch 10/20/16 10/20/16 10/20/16 11:49 13:59 17:56 WBC RBC Hgb Hct MCV RDW Plt Count Lymph % (Auto) [place] % (Auto) [place] # Seg Neutrophils % Seg Neuts % (Manual) Lymphocytes % (Manual) Monocytes % (Manual) Nucleated RBC % Seg Neutrophils # Seg Neutrophils # Man Lymphocytes # (Manual) Monocytes # (Manual) Eosinophils # (Manual) Basophils # (Manual) PT INR APTT Heparin Anti-Xa Level 2.00 H POC ABG pH POC ABG pCO2 POC ABG pO2 Sodium Potassium Chloride Carbon Dioxide BUN Creatinine Glucose POC Glucose 305 H 362 H Calcium Phosphorus Magnesium AST Alkaline Phosphatase C-Reactive Protein Total Protein Albumin Lipase Vitamin B12 TSH Urine WBC (Auto) Urine Chloride Urine Total Protein Crossmatch 10/20/16 10/21/16 10/21/16 23:52 05:00 05:49 WBC 22.9 H RBC 2.49 L Hgb 7.7 L Hct 25.6 L MCV 103 H RDW Plt Count Lymph % (Auto) [place] % (Auto) [place] # Seg Neutrophils % Seg Neuts % (Manual) 94.0 H Lymphocytes % (Manual) 1.0 L Monocytes % (Manual) Nucleated RBC % Seg Neutrophils # Seg Neutrophils # Man 21.5 H Lymphocytes # (Manual) 0.2 L Monocytes # (Manual) 1.1 H Eosinophils # (Manual) Basophils # (Manual) PT INR APTT Heparin Anti-Xa Level POC ABG pH POC ABG pCO2 POC ABG pO2 Sodium Potassium Chloride Carbon Dioxide BUN Creatinine Glucose POC Glucose 252 H 180 H Calcium Phosphorus Magnesium AST Alkaline Phosphatase C-Reactive Protein Total Protein Albumin Lipase Vitamin B12 TSH Urine WBC (Auto) Urine Chloride Urine Total Protein Crossmatch 10/21/16 10/21/16 10/21/16 11:47 11:49 14:10 WBC RBC Hgb Hct MCV RDW Plt Count Lymph % (Auto) [place] % (Auto) [place] # Seg Neutrophils % Seg Neuts % (Manual) Lymphocytes % (Manual) Monocytes % (Manual) Nucleated RBC % Seg Neutrophils # Seg Neutrophils # Man Lymphocytes # (Manual) Monocytes # (Manual) Eosinophils # (Manual) Basophils # (Manual) PT INR APTT Heparin Anti-Xa Level POC ABG pH POC ABG pCO2 POC ABG pO2 Sodium Potassium Chloride Carbon Dioxide BUN Creatinine Glucose POC Glucose 50 L 56 L 140 H Calcium Phosphorus Magnesium AST Alkaline Phosphatase C-Reactive Protein Total Protein Albumin Lipase Vitamin B12 TSH Urine WBC (Auto) Urine Chloride Urine Total Protein Crossmatch 10/21/16 10/21/16 10/22/16 18:24 Unknown 00:07 WBC RBC Hgb Hct MCV RDW Plt Count Lymph % (Auto) [place] % (Auto) [place] # Seg Neutrophils % Seg Neuts % (Manual) Lymphocytes % (Manual) Monocytes % (Manual) Nucleated RBC % Seg Neutrophils # Seg Neutrophils # Man Lymphocytes # (Manual) Monocytes # (Manual) Eosinophils # (Manual) Basophils # (Manual) PT INR APTT Heparin Anti-Xa Level POC ABG pH POC ABG pCO2 POC ABG pO2 Sodium 150 H Potassium 3.1 L Chloride 112.4 H Carbon Dioxide BUN 25 H Creatinine 1.4 H Glucose POC Glucose 175 H 218 H Calcium 8.0 L Phosphorus Magnesium AST Alkaline Phosphatase C-Reactive Protein Total Protein Albumin Lipase Vitamin B12 TSH Urine WBC (Auto) Urine Chloride Urine Total Protein Crossmatch 10/22/16 10/22/16 10/22/16 04:20 04:20 10:25 WBC 20.8 H RBC 2.37 L Hgb 7.5 L Hct 23.9 L MCV 101 H RDW Plt Count Lymph % (Auto) [place] % (Auto) [place] # Seg Neutrophils % Seg Neuts % (Manual) 89.0 H Lymphocytes % (Manual) 7.0 L Monocytes % (Manual) Nucleated RBC % Seg Neutrophils # Seg Neutrophils # Man 18.5 H Lymphocytes # (Manual) Monocytes # (Manual) Eosinophils # (Manual) Basophils # (Manual) 0.2 H PT INR APTT Heparin Anti-Xa Level POC ABG pH POC ABG pCO2 POC ABG pO2 Sodium 148 H Potassium 2.9 L* Chloride 109.4 H Carbon Dioxide BUN 26 H Creatinine Glucose 140 H POC Glucose Calcium 7.5 L Phosphorus Magnesium AST Alkaline Phosphatase C-Reactive Protein Total Protein Albumin Lipase Vitamin B12 976.8 H TSH Urine WBC (Auto) Urine Chloride Urine Total Protein Crossmatch 10/22/16 10/22/16 10/22/16 10:25 14:50 18:16 WBC RBC Hgb Hct MCV RDW Plt Count Lymph % (Auto) [place] % (Auto) [place] # Seg Neutrophils % Seg Neuts % (Manual) Lymphocytes % (Manual) Monocytes % (Manual) Nucleated RBC % Seg Neutrophils # Seg Neutrophils # Man Lymphocytes # (Manual) Monocytes # (Manual) Eosinophils # (Manual) Basophils # (Manual) PT INR APTT Heparin Anti-Xa Level POC ABG pH POC ABG pCO2 POC ABG pO2 Sodium Potassium Chloride Carbon Dioxide BUN Creatinine Glucose POC Glucose 193 H Calcium Phosphorus Magnesium AST Alkaline Phosphatase C-Reactive Protein Total Protein Albumin Lipase Vitamin B12 TSH 0.143 L 0.162 L Urine WBC (Auto) Urine Chloride Urine Total Protein Crossmatch 10/22/16 10/22/16 10/22/16 20:00 20:00 20:00 WBC 24.1 H RBC 2.58 L Hgb 8.2 L Hct 26.4 L MCV 102 H RDW Plt Count Lymph % (Auto) [place] % (Auto) [place] # Seg Neutrophils % Seg Neuts % (Manual) 74.0 H Lymphocytes % (Manual) 7.0 L Monocytes % (Manual) Nucleated RBC % Seg Neutrophils # Seg Neutrophils # Man 17.8 H Lymphocytes # (Manual) Monocytes # (Manual) Eosinophils # (Manual) Basophils # (Manual) PT INR APTT Heparin Anti-Xa Level 1.92 H POC ABG pH POC ABG pCO2 POC ABG pO2 Sodium Potassium Chloride Carbon Dioxide BUN Creatinine Glucose POC Glucose Calcium Phosphorus Magnesium AST Alkaline Phosphatase C-Reactive Protein Total Protein Albumin Lipase Vitamin B12 TSH Urine WBC (Auto) Urine Chloride Urine Total Protein Crossmatch See Detail 10/23/16 10/23/16 10/23/16 00:21 06:09 12:07 WBC RBC Hgb Hct MCV RDW Plt Count Lymph % (Auto) [place] % (Auto) [place] # Seg Neutrophils % Seg Neuts % (Manual) Lymphocytes % (Manual) Monocytes % (Manual) Nucleated RBC % Seg Neutrophils # Seg Neutrophils # Man Lymphocytes # (Manual) Monocytes # (Manual) Eosinophils # (Manual) Basophils # (Manual) PT INR APTT Heparin Anti-Xa Level POC ABG pH POC ABG pCO2 POC ABG pO2 Sodium Potassium Chloride Carbon Dioxide BUN Creatinine Glucose POC Glucose 283 H 241 H 340 H Calcium Phosphorus Magnesium AST Alkaline Phosphatase C-Reactive Protein Total Protein Albumin Lipase Vitamin B12 TSH Urine WBC (Auto) Urine Chloride Urine Total Protein Crossmatch 10/23/16 10/23/16 10/23/16 14:01 16:00 17:59 WBC RBC Hgb Hct MCV RDW Plt Count Lymph % (Auto) [place] % (Auto) [place] # Seg Neutrophils % Seg Neuts % (Manual) Lymphocytes % (Manual) Monocytes % (Manual) Nucleated RBC % Seg Neutrophils # Seg Neutrophils # Man Lymphocytes # (Manual) Monocytes # (Manual) Eosinophils # (Manual) Basophils # (Manual) PT INR APTT Heparin Anti-Xa Level 0.19 L POC ABG pH POC ABG pCO2 32.4 L POC ABG pO2 Sodium Potassium Chloride Carbon Dioxide BUN Creatinine Glucose POC Glucose 245 H Calcium Phosphorus Magnesium AST Alkaline Phosphatase C-Reactive Protein Total Protein Albumin Lipase Vitamin B12 TSH Urine WBC (Auto) Urine Chloride Urine Total Protein Crossmatch 10/23/16 10/23/16 10/23/16 22:55 Unknown Unknown WBC 22.6 H RBC 3.26 L Hgb Hct MCV RDW 17.1 H Plt Count Lymph % (Auto) [place] % (Auto) [place] # Seg Neutrophils % Seg Neuts % (Manual) Lymphocytes % (Manual) 11.0 L Monocytes % (Manual) Nucleated RBC % Seg Neutrophils # Seg Neutrophils # Man 14.0 H Lymphocytes # (Manual) Monocytes # (Manual) Eosinophils # (Manual) Basophils # (Manual) PT INR APTT Heparin Anti-Xa Level 0.17 L 0.15 L POC ABG pH POC ABG pCO2 POC ABG pO2 Sodium Potassium Chloride Carbon Dioxide BUN Creatinine Glucose POC Glucose Calcium Phosphorus Magnesium AST Alkaline Phosphatase C-Reactive Protein Total Protein Albumin Lipase Vitamin B12 TSH Urine WBC (Auto) Urine Chloride Urine Total Protein Crossmatch 10/23/16 10/24/16 10/24/16 Unknown 00:05 05:30 WBC RBC Hgb Hct MCV RDW Plt Count Lymph % (Auto) [place] % (Auto) [place] # Seg Neutrophils % Seg Neuts % (Manual) Lymphocytes % (Manual) Monocytes % (Manual) Nucleated RBC % Seg Neutrophils # Seg Neutrophils # Man Lymphocytes # (Manual) Monocytes # (Manual) Eosinophils # (Manual) Basophils # (Manual) PT INR APTT Heparin Anti-Xa Level 0.13 L POC ABG pH POC ABG pCO2 POC ABG pO2 Sodium Potassium Chloride 111.2 H Carbon Dioxide 20 L BUN 25 H Creatinine Glucose 227 H POC Glucose 118 H Calcium 7.1 L Phosphorus Magnesium AST Alkaline Phosphatase C-Reactive Protein Total Protein Albumin Lipase Vitamin B12 TSH Urine WBC (Auto) Urine Chloride Urine Total Protein Crossmatch 10/24/16 10/24/16 10/24/16 11:00 11:00 12:06 WBC 17.6 H RBC 2.92 L Hgb 9.2 L Hct 28.3 L MCV RDW 16.9 H Plt Count Lymph % (Auto) [place] % (Auto) [place] # Seg Neutrophils % Seg Neuts % (Manual) Lymphocytes % (Manual) Monocytes % (Manual) Nucleated RBC % Seg Neutrophils # Seg Neutrophils # Man Lymphocytes # (Manual) Monocytes # (Manual) Eosinophils # (Manual) Basophils # (Manual) PT INR APTT Heparin Anti-Xa Level 0.27 L POC ABG pH POC ABG pCO2 POC ABG pO2 Sodium Potassium Chloride Carbon Dioxide BUN Creatinine Glucose POC Glucose 166 H Calcium Phosphorus Magnesium AST Alkaline Phosphatase C-Reactive Protein Total Protein Albumin Lipase Vitamin B12 TSH Urine WBC (Auto) Urine Chloride Urine Total Protein Crossmatch 10/24/16 10/25/16 10/25/16 12:27 00:49 03:30 WBC RBC Hgb 8.8 L Hct 28.1 L MCV RDW Plt Count Lymph % (Auto) [place] % (Auto) [place] # Seg Neutrophils % Seg Neuts % (Manual) Lymphocytes % (Manual) Monocytes % (Manual) Nucleated RBC % Seg Neutrophils # Seg Neutrophils # Man Lymphocytes # (Manual) Monocytes # (Manual) Eosinophils # (Manual) Basophils # (Manual) PT INR APTT Heparin Anti-Xa Level POC ABG pH POC ABG pCO2 33.9 L POC ABG pO2 Sodium Potassium Chloride Carbon Dioxide BUN Creatinine Glucose POC Glucose 121 H Calcium Phosphorus Magnesium AST Alkaline Phosphatase C-Reactive Protein Total Protein Albumin Lipase Vitamin B12 TSH Urine WBC (Auto) Urine Chloride Urine Total Protein Crossmatch 10/25/16 10/25/16 10/25/16 09:49 12:10 19:25 WBC 21.1 H RBC 3.02 L Hgb 9.3 L Hct 28.9 L MCV RDW 16.3 H Plt Count Lymph % (Auto) [place] % (Auto) [place] # Seg Neutrophils % Seg Neuts % (Manual) 81.0 H Lymphocytes % (Manual) 9.0 L Monocytes % (Manual) Nucleated RBC % Seg Neutrophils # Seg Neutrophils # Man 17.1 H Lymphocytes # (Manual) Monocytes # (Manual) Eosinophils # (Manual) Basophils # (Manual) PT INR APTT Heparin Anti-Xa Level POC ABG pH POC ABG pCO2 POC ABG pO2 Sodium Potassium Chloride Carbon Dioxide BUN Creatinine Glucose POC Glucose 158 H 151 H Calcium Phosphorus Magnesium AST Alkaline Phosphatase C-Reactive Protein Total Protein Albumin Lipase Vitamin B12 TSH Urine WBC (Auto) Urine Chloride Urine Total Protein Crossmatch 10/26/16 10/26/16 10/26/16 00:20 01:09 05:02 WBC 22.2 H RBC 2.89 L Hgb 8.7 L Hct 27.8 L MCV RDW 16.4 H Plt Count Lymph % (Auto) [place] % (Auto) [place] # Seg Neutrophils % Seg Neuts % (Manual) Lymphocytes % (Manual) Monocytes % (Manual) Nucleated RBC % Seg Neutrophils # Seg Neutrophils # Man Lymphocytes # (Manual) Monocytes # (Manual) Eosinophils # (Manual) Basophils # (Manual) PT INR APTT Heparin Anti-Xa Level POC ABG pH POC ABG pCO2 POC ABG pO2 Sodium Potassium Chloride Carbon Dioxide BUN Creatinine Glucose POC Glucose 44 L 112 H Calcium Phosphorus Magnesium AST Alkaline Phosphatase C-Reactive Protein Total Protein Albumin Lipase Vitamin B12 TSH Urine WBC (Auto) Urine Chloride Urine Total Protein Crossmatch 10/26/16 10/26/16 10/26/16 05:02 12:11 12:14 WBC RBC Hgb Hct MCV RDW Plt Count Lymph % (Auto) [place] % (Auto) [place] # Seg Neutrophils % Seg Neuts % (Manual) Lymphocytes % (Manual) Monocytes % (Manual) Nucleated RBC % Seg Neutrophils # Seg Neutrophils # Man Lymphocytes # (Manual) Monocytes # (Manual) Eosinophils # (Manual) Basophils # (Manual) PT INR APTT Heparin Anti-Xa Level POC ABG pH POC ABG pCO2 32.0 L POC ABG pO2 33 L Sodium Potassium 3.2 L D Chloride Carbon Dioxide 20 L BUN 24 H Creatinine Glucose 104 H POC Glucose 194 H Calcium 7.7 L Phosphorus Magnesium AST Alkaline Phosphatase C-Reactive Protein Total Protein Albumin Lipase Vitamin B12 TSH Urine WBC (Auto) Urine Chloride Urine Total Protein Crossmatch 10/26/16 10/26/16 10/27/16 15:28 17:23 00:04 WBC RBC Hgb Hct MCV RDW Plt Count Lymph % (Auto) [place] % (Auto) [place] # Seg Neutrophils % Seg Neuts % (Manual) Lymphocytes % (Manual) Monocytes % (Manual) Nucleated RBC % Seg Neutrophils # Seg Neutrophils # Man Lymphocytes # (Manual) Monocytes # (Manual) Eosinophils # (Manual) Basophils # (Manual) PT INR APTT Heparin Anti-Xa Level POC ABG pH POC ABG pCO2 33.7 L POC ABG pO2 Sodium Potassium Chloride Carbon Dioxide BUN Creatinine Glucose POC Glucose 181 H 230 H Calcium Phosphorus Magnesium AST Alkaline Phosphatase C-Reactive Protein Total Protein Albumin Lipase Vitamin B12 TSH Urine WBC (Auto) Urine Chloride Urine Total Protein Crossmatch 10/27/16 10/27/16 10/27/16 05:15 05:15 05:38 WBC 25.5 H RBC 3.07 L Hgb 9.4 L Hct 30.1 L MCV 98 H RDW 16.4 H Plt Count 527 H Lymph % (Auto) [place] % (Auto) [place] # Seg Neutrophils % Seg Neuts % (Manual) Lymphocytes % (Manual) Monocytes % (Manual) Nucleated RBC % Seg Neutrophils # Seg Neutrophils # Man Lymphocytes # (Manual) Monocytes # (Manual) Eosinophils # (Manual) Basophils # (Manual) PT INR APTT Heparin Anti-Xa Level POC ABG pH POC ABG pCO2 POC ABG pO2 Sodium Potassium Chloride Carbon Dioxide 19 L BUN 23 H Creatinine Glucose 160 H POC Glucose 168 H Calcium 8.0 L Phosphorus Magnesium AST Alkaline Phosphatase C-Reactive Protein Total Protein Albumin Lipase Vitamin B12 TSH Urine WBC (Auto) Urine Chloride Urine Total Protein Crossmatch 10/27/16 10/27/16 10/27/16 11:59 18:35 23:48 WBC RBC Hgb Hct MCV RDW Plt Count Lymph % (Auto) [place] % (Auto) [place] # Seg Neutrophils % Seg Neuts % (Manual) Lymphocytes % (Manual) Monocytes % (Manual) Nucleated RBC % Seg Neutrophils # Seg Neutrophils # Man Lymphocytes # (Manual) Monocytes # (Manual) Eosinophils # (Manual) Basophils # (Manual) PT INR APTT Heparin Anti-Xa Level POC ABG pH POC ABG pCO2 POC ABG pO2 Sodium Potassium Chloride Carbon Dioxide BUN Creatinine Glucose POC Glucose 197 H 318 H 316 H Calcium Phosphorus Magnesium AST Alkaline Phosphatase C-Reactive Protein Total Protein Albumin Lipase Vitamin B12 TSH Urine WBC (Auto) Urine Chloride Urine Total Protein Crossmatch 10/28/16 10/28/16 10/28/16 03:13 04:10 04:10 WBC 18.8 H RBC 2.64 L Hgb 8.1 L Hct 26.1 L MCV 99 H RDW 16.2 H Plt Count 544 H Lymph % (Auto) [place] % (Auto) [place] # Seg Neutrophils % Seg Neuts % (Manual) Lymphocytes % (Manual) Monocytes % (Manual) Nucleated RBC % Seg Neutrophils # Seg Neutrophils # Man Lymphocytes # (Manual) Monocytes # (Manual) Eosinophils # (Manual) Basophils # (Manual) PT INR APTT Heparin Anti-Xa Level POC ABG pH POC ABG pCO2 POC ABG pO2 Sodium Potassium Chloride Carbon Dioxide 21 L BUN 24 H Creatinine Glucose 302 H POC Glucose 304 H Calcium 7.7 L Phosphorus Magnesium AST Alkaline Phosphatase C-Reactive Protein Total Protein Albumin Lipase Vitamin B12 TSH Urine WBC (Auto) Urine Chloride Urine Total Protein Crossmatch 10/28/16 10/28/16 10/28/16 04:10 12:36 18:27 WBC RBC Hgb Hct MCV RDW Plt Count Lymph % (Auto) [place] % (Auto) [place] # Seg Neutrophils % Seg Neuts % (Manual) Lymphocytes % (Manual) Monocytes % (Manual) Nucleated RBC % Seg Neutrophils # Seg Neutrophils # Man Lymphocytes # (Manual) Monocytes # (Manual) Eosinophils # (Manual) Basophils # (Manual) PT INR APTT Heparin Anti-Xa Level 0.20 L POC ABG pH POC ABG pCO2 POC ABG pO2 Sodium Potassium Chloride Carbon Dioxide BUN Creatinine Glucose POC Glucose 205 H 339 H Calcium Phosphorus Magnesium AST Alkaline Phosphatase C-Reactive Protein Total Protein Albumin Lipase Vitamin B12 TSH Urine WBC (Auto) Urine Chloride Urine Total Protein Crossmatch 10/29/16 10/29/16 10/29/16 01:05 06:19 09:30 WBC 20.3 H RBC 2.80 L Hgb 8.5 L Hct 26.7 L MCV RDW 15.4 H Plt Count 571 H Lymph % (Auto) [place] % (Auto) [place] # Seg Neutrophils % Seg Neuts % (Manual) 75.0 H Lymphocytes % (Manual) 4.0 L Monocytes % (Manual) Nucleated RBC % Seg Neutrophils # Seg Neutrophils # Man 15.2 H Lymphocytes # (Manual) 0.8 L Monocytes # (Manual) Eosinophils # (Manual) Basophils # (Manual) PT INR APTT Heparin Anti-Xa Level POC ABG pH POC ABG pCO2 POC ABG pO2 Sodium Potassium Chloride Carbon Dioxide BUN Creatinine Glucose POC Glucose 275 H 179 H Calcium Phosphorus Magnesium AST Alkaline Phosphatase C-Reactive Protein Total Protein Albumin Lipase Vitamin B12 TSH Urine WBC (Auto) Urine Chloride Urine Total Protein Crossmatch 10/29/16 10/29/16 10/29/16 11:46 15:18 17:55 WBC RBC Hgb Hct MCV RDW Plt Count Lymph % (Auto) [place] % (Auto) [place] # Seg Neutrophils % Seg Neuts % (Manual) Lymphocytes % (Manual) Monocytes % (Manual) Nucleated RBC % Seg Neutrophils # Seg Neutrophils # Man Lymphocytes # (Manual) Monocytes # (Manual) Eosinophils # (Manual) Basophils # (Manual) PT INR APTT Heparin Anti-Xa Level 1.15 H POC ABG pH POC ABG pCO2 POC ABG pO2 Sodium Potassium Chloride Carbon Dioxide BUN Creatinine Glucose POC Glucose 122 H 255 H Calcium Phosphorus Magnesium AST Alkaline Phosphatase C-Reactive Protein Total Protein Albumin Lipase Vitamin B12 TSH Urine WBC (Auto) Urine Chloride Urine Total Protein Crossmatch 10/30/16 10/30/16 10/30/16 00:10 05:30 05:30 WBC 19.8 H RBC 2.51 L Hgb 7.7 L Hct 24.1 L MCV RDW 15.5 H Plt Count 534 H Lymph % (Auto) [place] % (Auto) [place] # Seg Neutrophils % Seg Neuts % (Manual) Lymphocytes % (Manual) Monocytes % (Manual) Nucleated RBC % Seg Neutrophils # Seg Neutrophils # Man Lymphocytes # (Manual) Monocytes # (Manual) Eosinophils # (Manual) Basophils # (Manual) PT INR APTT Heparin Anti-Xa Level POC ABG pH POC ABG pCO2 POC ABG pO2 Sodium Potassium Chloride Carbon Dioxide BUN Creatinine Glucose 211 H POC Glucose 202 H Calcium 7.4 L Phosphorus Magnesium AST Alkaline Phosphatase C-Reactive Protein Total Protein Albumin Lipase Vitamin B12 TSH Urine WBC (Auto) Urine Chloride Urine Total Protein Crossmatch 10/30/16 10/30/16 10/30/16 06:32 12:51 17:47 WBC RBC Hgb Hct MCV RDW Plt Count Lymph % (Auto) [place] % (Auto) [place] # Seg Neutrophils % Seg Neuts % (Manual) Lymphocytes % (Manual) Monocytes % (Manual) Nucleated RBC % Seg Neutrophils # Seg Neutrophils # Man Lymphocytes # (Manual) Monocytes # (Manual) Eosinophils # (Manual) Basophils # (Manual) PT INR APTT Heparin Anti-Xa Level POC ABG pH POC ABG pCO2 POC ABG pO2 Sodium Potassium Chloride Carbon Dioxide BUN Creatinine Glucose POC Glucose 207 H 218 H 169 H Calcium Phosphorus Magnesium AST Alkaline Phosphatase C-Reactive Protein Total Protein Albumin Lipase Vitamin B12 TSH Urine WBC (Auto) Urine Chloride Urine Total Protein Crossmatch 10/30/16 10/31/16 10/31/16 23:59 05:25 11:21 WBC RBC Hgb Hct MCV RDW Plt Count Lymph % (Auto) [place] % (Auto) [place] # Seg Neutrophils % Seg Neuts % (Manual) Lymphocytes % (Manual) Monocytes % (Manual) Nucleated RBC % Seg Neutrophils # Seg Neutrophils # Man Lymphocytes # (Manual) Monocytes # (Manual) Eosinophils # (Manual) Basophils # (Manual) PT INR APTT Heparin Anti-Xa Level POC ABG pH POC ABG pCO2 POC ABG pO2 Sodium Potassium Chloride Carbon Dioxide BUN Creatinine Glucose POC Glucose 138 H 127 H 132 H Calcium Phosphorus Magnesium AST Alkaline Phosphatase C-Reactive Protein Total Protein Albumin Lipase Vitamin B12 TSH Urine WBC (Auto) Urine Chloride Urine Total Protein Crossmatch 10/31/16 10/31/16 11/01/16 17:07 23:54 06:33 WBC 19.2 H RBC 2.51 L Hgb 7.9 L Hct 24.8 L MCV 99 H D RDW 16.1 H Plt Count 569 H Lymph % (Auto) [place] % (Auto) [place] # Seg Neutrophils % Seg Neuts % (Manual) Lymphocytes % (Manual) Monocytes % (Manual) Nucleated RBC % Seg Neutrophils # Seg Neutrophils # Man Lymphocytes # (Manual) Monocytes # (Manual) Eosinophils # (Manual) Basophils # (Manual) PT INR APTT Heparin Anti-Xa Level POC ABG pH POC ABG pCO2 POC ABG pO2 Sodium Potassium Chloride Carbon Dioxide BUN Creatinine Glucose POC Glucose 138 H 153 H Calcium Phosphorus Magnesium AST Alkaline Phosphatase C-Reactive Protein Total Protein Albumin Lipase Vitamin B12 TSH Urine WBC (Auto) Urine Chloride Urine Total Protein Crossmatch 11/01/16 11/02/16 11/02/16 06:33 04:15 04:15 WBC 17.7 H RBC 2.43 L Hgb 7.6 L Hct 23.5 L MCV RDW 15.9 H Plt Count 502 H Lymph % (Auto) [place] % (Auto) [place] # Seg Neutrophils % Seg Neuts % (Manual) 84.0 H Lymphocytes % (Manual) 11.0 L Monocytes % (Manual) Nucleated RBC % 1.0 H Seg Neutrophils # Seg Neutrophils # Man 14.9 H Lymphocytes # (Manual) Monocytes # (Manual) Eosinophils # (Manual) Basophils # (Manual) PT INR APTT Heparin Anti-Xa Level POC ABG pH POC ABG pCO2 POC ABG pO2 Sodium Potassium 3.5 L 3.2 L Chloride Carbon Dioxide 21 L BUN 6 L Creatinine Glucose 137 H 135 H POC Glucose Calcium 7.7 L 7.5 L Phosphorus Magnesium AST Alkaline Phosphatase 148 H 132 H C-Reactive Protein Total Protein 6.2 L 6.2 L Albumin 2.0 L 1.8 L Lipase Vitamin B12 TSH Urine WBC (Auto) Urine Chloride Urine Total Protein Crossmatch Allied health notes reviewed: RT
--- NOTE | 2016-11-02 13:51 | Operative Report ---
PREOPERATIVE DIAGNOSES: Respiratory failure, diabetic ketoacidosis. POSTOPERATIVE DIAGNOSES: Respiratory failure, diabetic ketoacidosis. PROCEDURES: 1. Percutaneous endoscopic gastrostomy tube placement. 2. Percutaneous dilatational tracheostomy. ANESTHESIA: General endotracheal. SURGEON: Jun Hernandez MD APPLICATIONS TESTER: Dr. Artemio Benitez. INDICATIONS: A 66-year-old female patient with multiple medical problems and diabetic ketoacidosis has been admitted with respiratory failure, has been on a ventilator for several days. Currently, she is down to 30% oxygen. It is unlikely she will be weaned off from the ventilator hence we have been asked to do the above 2 procedures for long-term maintenance purposes. The family has signed the informed consent. PERCUTANEOUS ENDOSCOPIC GASTROSTOMY TUBE PLACEMENT: After the patient adequately sedated, the orogastric tube that is very firmly tethered to the endotracheal tube was . Using an Olympus gastroscope under direct vision, it was intubated into the cervical esophagus and into the stomach. Fair amount of secretions in the stomach was suctioned out. The gastric mucosa appeared normal. Stomach was inflated. Dr. Benitez prepared the anterior abdominal wall and site of the insertion was measured by both transillumination and digital pressure. After making a small incision, he inserted the trocar with the needle into the lumen of the stomach. A snare was passed through the biopsy channel of the gastroscope and Dr. Benitez passed the guidewire through the cannula. The guidewire was held by the snare. The snare, the guidewire, and the scope were all pulled out as one unit through the oral cavity. A size 20 microinvasive gastrostomy tube was attached to the guidewire in a retrograde fashion and the tube was pulled by traction method without any injury to the structures and it was felt at 3 cm of the skin level. Reendoscopy confirmed appropriate position of the with the endoscopic gastrostomy tube and no bleeding was noted. Appropriate adapters and dressings were placed and she tolerated this well. PERCUTANEOUS DILATATIONAL TRACHEOSTOMY: The patient's neck was gently hyperextended by placing roll sheets under the shoulder. She was adequately paralyzed. Anterior neck was prepped and draped. In the lower third of the neck, local anesthetic was infiltrated and a vertical 1.5-2 cm incision was made and subcutaneous tissue was dilated. The anesthesiologist deflated the endotracheal cuff and the endotracheal tube was pulled proximally up to 14 cm. The trachea was accessed in the first attempt and a guidewire was passed through this. The needle was removed and a tract over the guidewire was dilated using a small blue dilator and then the large dilator with a Blue Rhino. There was some amount of resistance encountered, but adequate dilatation could be done. The size 80 Shiley tube was inserted over the guidewire and this was inserted once again encountering minimal to moderate resistance with the tracheostomy tube could be placed in the trachea without any injury to the structures. The cannula was removed and the trocar was removed and the inner cannula was placed and exhalation of carbon dioxide was confirmed by placing the carbon dioxide sensor on the tracheostomy tube. Endotracheal tube was removed. The flanges of the tracheostomy tube was anchored to the neck skin with 2-0 nylon sutures. Appropriate adaptors were placed. The patient was on heparin that was discontinued 5 hours earlier. It will be resumed after 4 hours. Hence, a small piece of Surgicel was placed for adequate post hemostasis. A chest x-ray is pending at the present time to confirm the position of the tube. She tolerated this well with adequate oxygenation . JOB# [id number] MNN/NTS
--- NOTE | 2016-11-02 14:39 | Event Note ---
Date: 11/02/16 Pt s/p trach and PEG earlier today by general surgery. She has an ischemic right lower extremity which does not appear to be salvageable. Discussed options with the patient's family at the bedside. We could consider angiogram with revascularization to improve her chances of healing a subsequent [id number]-[id number] amputation. This has a risk that it would not heal and would require a second procedure to convert to an [id number] amputation. Alternatively, we could consider proceeding with an [id number] amputation. Unfortunately, rehabilitation with an [id number]-ncx-[id number] amputation would be more difficult than a BKA. The patient's family would like to think about it over the weekend. We will stop tube feeds for possible procedure on Saturday.
[2016-11-02] MEDS ORDERED: POTASSIUM CHLORIDE FEEDTUBE ONE (15:00)
[2016-11-02] MEDS ORDERED: CATHFLO IV ONE ×2 (16:54→18:00)
--- NOTE | 2016-11-02 17:09 | Progress Note ---
Assessment and Plan 1. Acute respiratory failure with hypercapnia: Vent supported. Trach and PEG place today. Continue with bronchodilators and wean as tolerated. 2. Diabetes: Sliding scale insulin 3. Sepsis- Leukocytosis Suspected due to UTI, urine has only grown Paula, sputum cultures grew group B strep, continue broad-spectrum antibiotics, infectious disease input appreciated 4. 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 Family member to decided between AKA or BKA as linb is not salvagable 5. Hypokalemia: Supplement potassium further 6. Toxic metabolic encephalopathy- improving. 7. Tachycardia- continue BB will add cardizem, if no improvement will add cardiology consultation 8. Anemia: Multifactorial including sepsis. We'll trend Given her multiple medical illnesses, her prognosis is quite poor Subjective Date of service: 11/02/16 Principal diagnosis: respiratory failure on mechanical ventilatory support, DKA Interval history: Remains intubated. Trach place today by bedside Objective - Constitutional Vitals: Vital Signs - 12hr 11/02/16 11/02/16 11/02/16 05:15 05:30 05:40 Temperature Pulse Rate 87 93 H 89 Pulse Rate [ Apical] Pulse Rate [ From Monitor] Respiratory 17 17 Rate Blood Pressure 135/61 136/66 136/66 O2 Sat by Pulse 98 97 Oximetry 11/02/16 11/02/16 11/02/16 05:45 06:00 06:15 Temperature Pulse Rate 88 87 84 Pulse Rate [ Apical] Pulse Rate [ From Monitor] Respiratory 17 18 18 Rate Blood Pressure 141/64 139/68 135/64 O2 Sat by Pulse 97 96 97 Oximetry 11/02/16 11/02/16 11/02/16 06:30 06:45 07:00 Temperature Pulse Rate 86 86 92 H Pulse Rate [ Apical] Pulse Rate [ From Monitor] Respiratory 19 19 13 Rate Blood Pressure 135/65 137/66 143/70 O2 Sat by Pulse 98 97 98 Oximetry 11/02/16 11/02/16 11/02/16 07:10 07:15 07:30 Temperature Pulse Rate 100 H 99 H 97 H Pulse Rate [ Apical] Pulse Rate [ From Monitor] Respiratory 19 15 Rate Blood Pressure 145/67 145/66 O2 Sat by Pulse 98 97 97 Oximetry 11/02/16 11/02/16 11/02/16 07:45 08:00 08:15 Temperature 100.4 F H Pulse Rate 98 H 100 H 100 H Pulse Rate [ 95 H Apical] Pulse Rate [ 98 H From Monitor] Respiratory 18 17 19 Rate Blood Pressure 148/68 149/69 148/67 O2 Sat by Pulse 97 97 97 Oximetry 11/02/16 11/02/16 11/02/16 08:30 08:45 09:00 Temperature Pulse Rate 104 H 107 H 103 H Pulse Rate [ Apical] Pulse Rate [ From Monitor] Respiratory 17 18 22 Rate Blood Pressure 146/71 154/73 141/73 O2 Sat by Pulse 96 97 96 Oximetry 11/02/16 11/02/16 11/02/16 09:15 09:30 09:40 Temperature 99.9 F H Pulse Rate 105 H 93 H 115 H Pulse Rate [ Apical] Pulse Rate [ From Monitor] Respiratory 22 17 10 L Rate Blood Pressure 148/67 141/63 157/70 O2 Sat by Pulse 96 99 100 Oximetry 11/02/16 11/02/16 11/02/16 09:45 10:00 10:16 Temperature Pulse Rate 96 H 105 H 109 H Pulse Rate [ Apical] Pulse Rate [ From Monitor] Respiratory 19 20 19 Rate Blood Pressure 146/64 145/97 189/92 O2 Sat by Pulse 98 99 98 Oximetry 11/02/16 11/02/16 11/02/16 10:30 10:40 10:45 Temperature Pulse Rate 113 H 104 H 130 H Pulse Rate [ Apical] Pulse Rate [ From Monitor] Respiratory 17 18 Rate Blood Pressure 165/78 175/86 O2 Sat by Pulse 100 97 100 Oximetry 11/02/16 11/02/16 11/02/16 11:00 11:15 11:30 Temperature Pulse Rate 127 H 115 H 129 H Pulse Rate [ Apical] Pulse Rate [ From Monitor] Respiratory 18 10 L 18 Rate Blood Pressure 178/89 157/70 161/72 O2 Sat by Pulse 100 100 100 Oximetry 11/02/16 11/02/16 11/02/16 11:45 12:00 12:15 Temperature 101.5 F H Pulse Rate 111 H 107 H 103 H Pulse Rate [ 100 H Apical] Pulse Rate [ 98 H From Monitor] Respiratory 18 18 20 Rate Blood Pressure 139/60 137/60 129/58 O2 Sat by Pulse 100 100 99 Oximetry 11/02/16 11/02/16 11/02/16 12:30 12:45 13:00 Temperature Pulse Rate 97 H 102 H 104 H Pulse Rate [ Apical] Pulse Rate [ From Monitor] Respiratory 18 18 17 Rate Blood Pressure 134/55 133/59 123/66 O2 Sat by Pulse 99 99 99 Oximetry 11/02/16 11/02/16 11/02/16 13:15 13:30 13:45 Temperature Pulse Rate 100 H 93 H 100 H Pulse Rate [ Apical] Pulse Rate [ From Monitor] Respiratory 19 17 14 Rate Blood Pressure 142/59 129/58 144/63 O2 Sat by Pulse 99 100 100 Oximetry 11/02/16 11/02/16 11/02/16 14:00 14:15 14:30 Temperature Pulse Rate 93 H 98 H 91 H Pulse Rate [ Apical] Pulse Rate [ From Monitor] Respiratory 19 16 19 Rate Blood Pressure 146/70 147/64 146/68 O2 Sat by Pulse 100 100 100 Oximetry 11/02/16 11/02/16 11/02/16 14:45 15:00 15:15 Temperature Pulse Rate 88 92 H 93 H Pulse Rate [ Apical] Pulse Rate [ From Monitor] Respiratory 19 18 18 Rate Blood Pressure 144/65 156/69 147/74 O2 Sat by Pulse 100 100 100 Oximetry 11/02/16 11/02/16 11/02/16 15:30 15:45 16:00 Temperature 100.6 F H Pulse Rate 92 H 99 H 95 H Pulse Rate [ Apical] Pulse Rate [ From Monitor] Respiratory 18 18 18 Rate Blood Pressure 152/73 158/71 146/71 O2 Sat by Pulse 100 100 100 Oximetry 11/02/16 11/02/16 11/02/16 16:15 16:30 16:45 Temperature Pulse Rate 94 H 98 H 92 H Pulse Rate [ Apical] Pulse Rate [ From Monitor] Respiratory 18 18 18 Rate Blood Pressure 144/68 151/69 136/63 O2 Sat by Pulse 100 100 100 Oximetry General appearance: Present: no acute distress - EENT Eyes: PERRL - Neck Neck: supple - Respiratory Respiratory: bilateral: diminished - Cardiovascular Rhythm: regular Extremity abnormal: other (ischemic right leg) - Gastrointestinal General gastrointestinal: Present: soft, non-tender, non-distended - Integumentary Integumentary: clear, warm - Musculoskeletal Musculoskeletal: strength equal bilaterally - Neurologic Neurologic: CNII-XII intact, moves all extremities - Psychiatric Psychiatric: appropriate mood/affect - Labs CBC & Chem 7: 11/02/16 04:15 11/02/16 04:15 Labs: Abnormal lab results 11/02/16 11/02/16 Range/Units 04:15 04:15 WBC 17.7 H (4.5-11.0) K/mm3 RBC 2.43 L (3.65-5.03) M/mm3 Hgb 7.6 L (10.1-14.3) gm/dl Hct 23.5 L (30.3-42.9) % RDW 15.9 H (13.2-15.2) % Plt Count 502 H (140-440) K/mm3 Seg Neuts % (Manual) 84.0 H (40.0-70.0) % Lymphocytes % (Manual) 11.0 L (13.4-35.0) % Nucleated RBC % 1.0 H (0.0-0.9) % Seg Neutrophils # Man 14.9 H (1.8-7.7) K/mm3 Potassium 3.2 L (3.6-5.0) mmol/L BUN 6 L (7-17) mg/dL Glucose 135 H (65-100) mg/dL Calcium 7.5 L (8.4-10.2) mg/dL Alkaline Phosphatase 132 H (35-129) units/L Total Protein 6.2 L (6.3-8.2) g/dL Albumin 1.8 L (3.9-5) g/dL
[2016-11-02] MEDS ORDERED: NACL 0.9% IV SCH (17:55)
[2016-11-02] MEDS: TYLENOL FEEDTUBE PRN (18:00)
[2016-11-02] MEDS ORDERED: NACL P/F VIAL (10 ML) 10 ML ONE (18:07)
[2016-11-02] MEDS ORDERED: LOPRESSOR ONE (18:13)
--- NOTE | 2016-11-02 19:12 | Progress Note ---
Subjective Date of service: 11/02/16 Principal diagnosis: respiratory failure on mechanical ventilatory support, DKA Interval history: AWAKE. FEVER. Vital signs - Temp 101 CHEST - GOOD AIR ENTRY CVS - S1S2 ABD - BS_ LABS See lab section. ASSESSMENT 1. Sepsis 2. dka 3. resp failure 4. htn 5. clostridium difficile colitis 6. bilateral pneumonia 6. RIGHT LEG GANGRENE. RECOMMENDATION 1. cbc/bmp in am 2. Fever likely related to right foot gangrene. Evaluation for either a bka or aka in progress with involvement of family who wants to think over it over the weekend. Objective - Constitutional Vitals: Vital Signs Temp Pulse Resp BP Pulse Ox 100.6 F H 102 H 19 150/68 100 11/02/16 16:00 11/02/16 17:30 11/02/16 17:30 11/02/16 17:30 11/02/16 17:30 Temperature -Last 24 Hours Temperature 100.6 F Temperature 101.5 F Temperature 99.9 F Temperature 99.9 F Temperature 100.4 F Temperature 100.0 F Temperature 99.7 F Temperature 99.0 F Temperature 99.9 F - Labs CBC & Chem 7: 11/02/16 04:15 11/02/16 04:15 Labs: Abnormal lab results 11/02/16 11/02/16 Range/Units 04:15 04:15 WBC 17.7 H (4.5-11.0) K/mm3 RBC 2.43 L (3.65-5.03) M/mm3 Hgb 7.6 L (10.1-14.3) gm/dl Hct 23.5 L (30.3-42.9) % RDW 15.9 H (13.2-15.2) % Plt Count 502 H (140-440) K/mm3 Seg Neuts % (Manual) 84.0 H (40.0-70.0) % Lymphocytes % (Manual) 11.0 L (13.4-35.0) % Nucleated RBC % 1.0 H (0.0-0.9) % Seg Neutrophils # Man 14.9 H (1.8-7.7) K/mm3 Potassium 3.2 L (3.6-5.0) mmol/L BUN 6 L (7-17) mg/dL Glucose 135 H (65-100) mg/dL Calcium 7.5 L (8.4-10.2) mg/dL Alkaline Phosphatase 132 H (35-129) units/L Total Protein 6.2 L (6.3-8.2) g/dL Albumin 1.8 L (3.9-5) g/dL
[2016-11-02] MEDS: VERSED/NS 100MG/100ML 100 MG/100 ML BAG IV SCH ×2 (19:22→19:25)
[2016-11-02] MEDS: KCL 10MEQ/100ML 10 MEQ/100 ML BAG IV SCH ×4 (19:26→23:50)
[2016-11-02] MEDS ORDERED: NORCO 5/325 ONE (20:11)
[2016-11-02] MEDS: LEVAQUIN 750MG/150ML 750 MG/150 ML BAG IV SCH (22:06)
[2016-11-03 01:02] LABS: Mean Corpuscular HGB Conc 31 % (30-34); Mean Corpuscular Hemoglobin 31 pg (28-32); Mean Corpuscular Volume 98 fl (79-97); Platelet Count 423 K/mm3 (140-440); Red Blood Count 1.93 M/mm3 (3.65-5.03); Red Cell Distribution Width 15.9 % (13.2-15.2); White Blood Count 15.9 K/mm3 (4.5-11.0)
[2016-11-03 01:04] LABS: Hematocrit 18.9 % (30.3-42.9); Hemoglobin 5.9 gm/dl (10.1-14.3)
[2016-11-03 01:48] LABS: Anion Gap 18 mmol/L; BUN/Creatinine Ratio 7.14; Blood Urea Nitrogen 5 mg/dL (7-17); Calcium 6.7 mg/dL (8.4-10.2); Carbon Dioxide 20 mmol/L (22-30); Chloride 104.3 mmol/L (98-107); Glucose 139 mg/dL (65-100); Potassium 3.7 mmol/L (3.6-5.0); Sodium 139 mmol/L (137-145)
[2016-11-03 02:55] LABS: Anisocytosis 2+; Basophils % (Manual) 0 % (0.0-1.8); Blastocytes % (Manual) 0 %; Hypochromasia 2+; Stomatocytes Few
[2016-11-03 02:56] LABS: Diff Status Complete; Polychromasia Few
[2016-11-03] MEDS: LOPRESSOR FEEDTUBE SCH ×4 (06:29→21:42)
[2016-11-03] MEDS: CLEOCIN 600 MG/50 mL 600 MG/50 ML BAG IV SCH ×2 (06:55→14:10)
[2016-11-03] MEDS: HEPARIN/ 0.45% NACL-25,000 UNIT/500 ML 25,000 UNITS/500 ML BAG IV SCH ×2 (07:28→19:17)
[2016-11-03] MEDS: VERSED/NS 100MG/100ML 100 MG/100 ML BAG IV SCH ×2 (07:30→21:00)
[2016-11-03] MEDS: fentaNYL DRIP Premix 2,000 MCG/100 ML BAG IV SCH ×4 (07:30→23:45)
[2016-11-03] MEDS: NACL 0.9% 1000 ML 1,000 ML IV SCH (07:31)
[2016-11-03 07:55] LABS: Hematocrit 23.1 % (30.3-42.9); Hemoglobin 7.3 gm/dl (10.1-14.3); Mean Corpuscular HGB Conc 32 % (30-34); Mean Corpuscular Hemoglobin 31 pg (28-32); Mean Corpuscular Volume 97 fl (79-97); Platelet Count 419 K/mm3 (140-440); Red Blood Count 2.38 M/mm3 (3.65-5.03); Red Cell Distribution Width 15.9 % (13.2-15.2)
[2016-11-03 08:19] LABS: Alanine Aminotransferase 11 units/L (7-56); Albumin 1.5 g/dL (3.9-5); Albumin/Globulin Ratio 0.3 %; Alkaline Phosphatase 112 units/L (35-129); Anion Gap 18 mmol/L; BUN/Creatinine Ratio 6.25; Bilirubin,Total 0.3 mg/dL (0.1-1.2); Blood Urea Nitrogen 5 mg/dL (7-17); Calcium 7.2 mg/dL (8.4-10.2); Carbon Dioxide 22 mmol/L (22-30); Chloride 104.9 mmol/L (98-107); Glucose 127 mg/dL (65-100); Potassium 3.9 mmol/L (3.6-5.0); Sodium 141 mmol/L (137-145); Total Protein 5.8 g/dL (6.3-8.2)
[2016-11-03 10:17] LABS: Anion Gap 19 mmol/L; BUN/Creatinine Ratio 6.25; Blood Urea Nitrogen 5 mg/dL (7-17); Calcium 6.7 mg/dL (8.4-10.2); Carbon Dioxide 22 mmol/L (22-30); Chloride 102.5 mmol/L (98-107); Glucose 111 mg/dL (65-100); Potassium 4.2 mmol/L (3.6-5.0); Sodium 139 mmol/L (137-145)
[2016-11-03] MEDS: PEPCID PO SCH ×2 (10:54→22:41)
--- NOTE | 2016-11-03 12:01 | Progress Note ---
Assessment and Plan Patient's family members not in the room at time of examination. We will discuss with them on tomorrow to determine their decision for revascularization procedure and a BKA versus a definitive AKA. Subjective Date of service: 11/03/16 Principal diagnosis: respiratory failure on mechanical ventilatory support, DKA Interval history: Patient with an acutely ischemic right leg. Discussed with family members AKA versus BKA and revascularization procedure. The patient appears more alert today spontaneously opening her eyes and appearing to interact with discussions regarding her care. Currently on a ventilator. Objective - Constitutional Vitals: Vital Signs - 12hr 11/03/16 11/03/16 11/03/16 00:00 00:45 00:50 Temperature 99.9 F H Pulse Rate 85 80 Pulse Rate [ Apical] Pulse Rate [ From Monitor] Respiratory 18 Rate Blood Pressure 129/66 126/63 O2 Sat by Pulse 100 100 Oximetry O2 Sat by Pulse 100 Oximetry [ Assessment] 11/03/16 11/03/16 11/03/16 01:00 02:00 03:00 Temperature Pulse Rate 80 79 95 H Pulse Rate [ Apical] Pulse Rate [ From Monitor] Respiratory 19 18 21 Rate Blood Pressure 126/63 134/66 144/75 O2 Sat by Pulse 100 100 100 Oximetry O2 Sat by Pulse Oximetry [ Assessment] 11/03/16 11/03/16 11/03/16 04:00 04:20 05:00 Temperature 100.0 F H Pulse Rate 86 85 87 Pulse Rate [ Apical] Pulse Rate [ From Monitor] Respiratory 18 19 Rate Blood Pressure 134/66 134/66 144/73 O2 Sat by Pulse 100 100 100 Oximetry O2 Sat by Pulse Oximetry [ Assessment] 11/03/16 11/03/16 11/03/16 06:00 06:29 07:00 Temperature Pulse Rate 78 88 76 Pulse Rate [ Apical] Pulse Rate [ From Monitor] Respiratory 18 18 Rate Blood Pressure 144/73 129/61 129/61 O2 Sat by Pulse 100 100 Oximetry O2 Sat by Pulse Oximetry [ Assessment] 11/03/16 11/03/16 11/03/16 08:00 08:55 09:00 Temperature 100.4 F H Pulse Rate 80 74 84 Pulse Rate [ 89 Apical] Pulse Rate [ 85 From Monitor] Respiratory 15 22 Rate Blood Pressure 139/68 139/68 133/64 O2 Sat by Pulse 100 100 99 Oximetry O2 Sat by Pulse Oximetry [ Assessment] 11/03/16 11/03/16 11/03/16 09:04 10:00 11:00 Temperature Pulse Rate 84 97 H 92 H Pulse Rate [ Apical] Pulse Rate [ From Monitor] Respiratory 24 23 18 Rate Blood Pressure 133/64 145/70 127/71 O2 Sat by Pulse 96 100 100 Oximetry O2 Sat by Pulse Oximetry [ Assessment] General appearance: Present: no acute distress - EENT Eyes: PERRL ENT: hearing intact - Neck Neck: normal ROM - Respiratory Respiratory effort: other (tracheostomy, ventilator) - Breasts Breasts: deferred - Cardiovascular Rhythm: regular Extremities: abnormal (gangrenous nonfunctional right foot.) - Gastrointestinal General gastrointestinal: Present: deferred Rectal Exam: deferred - Genitourinary Female genitourinary: deferred - Labs CBC & Chem 7: 11/03/16 02:05 11/03/16 09:27 Labs: Abnormal lab results 11/02/16 11/03/16 11/03/16 Range/Units 00:05 00:05 00:05 WBC (4.5-11.0) K/mm3 RBC (3.65-5.03) M/mm3 Hgb (10.1-14.3) gm/dl Hct (30.3-42.9) % MCV (79-97) fl RDW (13.2-15.2) % Seg Neuts % (Manual) (40.0-70.0) % Lymphocytes % (Manual) (13.4-35.0) % Seg Neutrophils # Man (1.8-7.7) K/mm3 Lymphocytes # (Manual) (1.2-5.4) K/mm3 Heparin Anti-Xa Level < 0.10 L (0.3-0.7) U.I./ml Carbon Dioxide 20 L (22-30) mmol/L BUN 5 L (7-17) mg/dL Glucose 139 H (65-100) mg/dL Calcium 6.7 L (8.4-10.2) mg/dL Magnesium 1.2 L (1.7-2.3) mg/dL Total Protein (6.3-8.2) g/dL Albumin (3.9-5) g/dL 11/03/16 11/03/16 11/03/16 Range/Units 00:05 02:05 04:23 WBC 15.9 H 14.0 H (4.5-11.0) K/mm3 RBC 1.93 L 2.38 L (3.65-5.03) M/mm3 Hgb 5.9 L* 7.3 L (10.1-14.3) gm/dl Hct 18.9 L* 23.1 L (30.3-42.9) % MCV 98 H (79-97) fl RDW 15.9 H 15.9 H (13.2-15.2) % Seg Neuts % (Manual) 85.0 H (40.0-70.0) % Lymphocytes % (Manual) 4.0 L (13.4-35.0) % Seg Neutrophils # Man 13.5 H (1.8-7.7) K/mm3 Lymphocytes # (Manual) 0.6 L (1.2-5.4) K/mm3 Heparin Anti-Xa Level (0.3-0.7) U.I./ml Carbon Dioxide (22-30) mmol/L BUN 5 L (7-17) mg/dL Glucose 127 H (65-100) mg/dL Calcium 7.2 L (8.4-10.2) mg/dL Magnesium (1.7-2.3) mg/dL Total Protein 5.8 L (6.3-8.2) g/dL Albumin 1.5 L (3.9-5) g/dL 11/03/16 11/03/16 Range/Units 09:14 09:27 WBC (4.5-11.0) K/mm3 RBC (3.65-5.03) M/mm3 Hgb (10.1-14.3) gm/dl Hct (30.3-42.9) % MCV (79-97) fl RDW (13.2-15.2) % Seg Neuts % (Manual) (40.0-70.0) % Lymphocytes % (Manual) (13.4-35.0) % Seg Neutrophils # Man (1.8-7.7) K/mm3 Lymphocytes # (Manual) (1.2-5.4) K/mm3 Heparin Anti-Xa Level 0.11 L (0.3-0.7) U.I./ml Carbon Dioxide (22-30) mmol/L BUN 5 L (7-17) mg/dL Glucose 111 H (65-100) mg/dL Calcium 6.7 L (8.4-10.2) mg/dL Magnesium (1.7-2.3) mg/dL Total Protein (6.3-8.2) g/dL Albumin (3.9-5) g/dL
--- NOTE | 2016-11-03 12:56 | Progress Note ---
Assessment and Plan Patient has tracheostomy yesterday.Patient is on pressure support ventilation. Sleeping but arousable. Patient is on preesure support 12, FIO2 25% and O2 satuaration 100%. - Patient Problems (1) Acute respiratory failure with hypercapnia Current Visit: Yes Status: Acute Plan to address problem: Continue pressure support ventilation PS 12 cm H2O pressure and FIO@ 25%. May try trach collar tomorrow. Albuterol/atrovent aerosol treatments q 6 hours. Patient on I.V Heparine. Continue famotidine. respiratory suctioning Trach care. (2) LUCY (acute kidney injury) Current Visit: Yes Status: Acute Plan to address problem: Management as per primary care. (3) DKA (diabetic ketoacidoses) Current Visit: Yes Status: Acute Qualifiers: Diabetes mellitus type: D Diabetes mellitus complication detail: D Plan to address problem: Patient is on insulin coverage. and I/V fluids. Management as per primary care. (4) Altered mental status Current Visit: Yes Status: Acute Qualifiers: Altered mental status type: A Coma depth: C Coma timing: C Plan to address problem: Management as per primary care. (5) Sepsis Current Visit: No Status: Acute Qualifiers: Sepsis type: S Plan to address problem: Patient is on Levaquine and Clindamycin (6) Obesity (BMI 30-39.9) Current Visit: No Status: Chronic Qualifiers: Obesity type: O Obesity severity: O Plan to address problem: Weight reduction diet. (7) Ischemia of right lower extremity Current Visit: Yes Status: Acute Plan to address problem: Management as per vascular surgery. Subjective Date of service: 11/03/16 Principal diagnosis: respiratory failure on mechanical ventilatory support, DKA Interval history: Patient has tracheostomy yesterday.Patient is on pressure support ventilation. Sleeping but arousable. Patient is on preesure support 12, FIO2 25% and O2 satuaration 100%. Objective Vital Signs - 12hr 11/03/16 11/03/16 11/03/16 01:00 02:00 03:00 Temperature Pulse Rate 80 79 95 H Pulse Rate [ Apical] Pulse Rate [ From Monitor] Respiratory 19 18 21 Rate Blood Pressure 126/63 134/66 144/75 O2 Sat by Pulse 100 100 100 Oximetry 11/03/16 11/03/16 11/03/16 04:00 04:20 05:00 Temperature 100.0 F H Pulse Rate 86 85 87 Pulse Rate [ Apical] Pulse Rate [ From Monitor] Respiratory 18 19 Rate Blood Pressure 134/66 134/66 144/73 O2 Sat by Pulse 100 100 100 Oximetry 11/03/16 11/03/16 11/03/16 06:00 06:29 07:00 Temperature Pulse Rate 78 88 76 Pulse Rate [ Apical] Pulse Rate [ From Monitor] Respiratory 18 18 Rate Blood Pressure 144/73 129/61 129/61 O2 Sat by Pulse 100 100 Oximetry 11/03/16 11/03/16 11/03/16 08:00 08:55 09:00 Temperature 100.4 F H Pulse Rate 80 74 84 Pulse Rate [ 89 Apical] Pulse Rate [ 85 From Monitor] Respiratory 15 22 Rate Blood Pressure 139/68 139/68 133/64 O2 Sat by Pulse 100 100 99 Oximetry 11/03/16 11/03/16 11/03/16 09:04 10:00 11:00 Temperature Pulse Rate 84 97 H 92 H Pulse Rate [ Apical] Pulse Rate [ From Monitor] Respiratory 24 23 18 Rate Blood Pressure 133/64 145/70 127/71 O2 Sat by Pulse 96 100 100 Oximetry 11/03/16 11/03/16 12:00 12:33 Temperature 99.8 F H Pulse Rate 86 86 Pulse Rate [ Apical] Pulse Rate [ From Monitor] Respiratory 34 H 30 H Rate Blood Pressure 118/74 118/74 O2 Sat by Pulse 100 100 Oximetry Constitutional: no acute distress, asleep, other (? delirium / dementia element) Eyes: non-icteric ENT: oropharynx moist Neck: supple, no lymphadenopathy Effort: mildly labored Ascultation: Bilateral: diminished breath sounds, rales (bases) Cardiovascular: regular rate and rhythm, other (tachycardia) Gastrointestinal: normoactive bowel sounds, soft, non-tender, non-distended Integumentary: normal Extremities: no cyanosis, no edema, no ischemia or petechiae, other (cold right foot with digital ischemia) Neurologic: non-focal exam (grossly), unable to assess Psychiatric: other (sedated) CBC and BMP: 11/03/16 02:05 11/03/16 09:27 ABG, PT/INR, D-dimer: ABG POC ABG pH 7.398 (7.35-7.45) 10/26/16 15:28 POC ABG pCO2 33.7 (35-45) L 10/26/16 15:28 POC ABG pO2 99 (80-105) 10/26/16 15:28 POC ABG HCO3 20.8 10/26/16 15:28 POC ABG Total CO2 22 10/26/16 15:28 POC ABG O2 Sat 98 10/26/16 15:28 PT/INR, D-dimer PT 16.4 Sec. (12.2-14.9) H 10/17/16 16:07 INR 1.33 (0.87-1.13) H 10/17/16 16:07 Abnormal lab findings: Abnormal Labs 10/13/16 10/13/16 10/13/16 06:38 06:38 07:23 WBC RBC Hgb Hct MCV RDW Plt Count Lymph % (Auto) [place] % (Auto) [place] # Seg Neutrophils % Seg Neuts % (Manual) Lymphocytes % (Manual) Monocytes % (Manual) Nucleated RBC % Seg Neutrophils # Seg Neutrophils # Man Lymphocytes # (Manual) Monocytes # (Manual) Eosinophils # (Manual) Basophils # (Manual) PT INR APTT Heparin Anti-Xa Level POC ABG pH POC ABG pCO2 POC ABG pO2 Sodium Potassium 6.2 H* Chloride Carbon Dioxide 8 L* BUN 85 H Creatinine 2.8 H Glucose 602 H* POC Glucose 495 H Calcium 7.9 L Phosphorus 6.9 H D Magnesium 3.0 H AST Alkaline Phosphatase C-Reactive Protein Total Protein Albumin Lipase Vitamin B12 TSH Urine WBC (Auto) Urine Chloride Urine Total Protein Crossmatch 10/13/16 10/13/16 10/13/16 08:49 08:55 10:12 WBC RBC Hgb Hct MCV RDW Plt Count Lymph % (Auto) [place] % (Auto) [place] # Seg Neutrophils % Seg Neuts % (Manual) Lymphocytes % (Manual) Monocytes % (Manual) Nucleated RBC % Seg Neutrophils # Seg Neutrophils # Man Lymphocytes # (Manual) Monocytes # (Manual) Eosinophils # (Manual) Basophils # (Manual) PT INR APTT Heparin Anti-Xa Level POC ABG pH POC ABG pCO2 POC ABG pO2 Sodium Potassium 5.6 H Chloride Carbon Dioxide 11 L BUN 77 H Creatinine 2.7 H Glucose 457 H POC Glucose > 500 H 424 H Calcium 8.0 L Phosphorus Magnesium AST Alkaline Phosphatase C-Reactive Protein Total Protein Albumin Lipase Vitamin B12 TSH Urine WBC (Auto) Urine Chloride Urine Total Protein Crossmatch 10/13/16 10/13/16 10/13/16 10:44 11:22 12:20 WBC RBC Hgb Hct MCV RDW Plt Count Lymph % (Auto) [place] % (Auto) [place] # Seg Neutrophils % Seg Neuts % (Manual) Lymphocytes % (Manual) Monocytes % (Manual) Nucleated RBC % Seg Neutrophils # Seg Neutrophils # Man Lymphocytes # (Manual) Monocytes # (Manual) Eosinophils # (Manual) Basophils # (Manual) PT INR APTT Heparin Anti-Xa Level POC ABG pH POC ABG pCO2 POC ABG pO2 Sodium Potassium 5.4 H Chloride Carbon Dioxide 14 L BUN 72 H Creatinine 2.6 H Glucose 383 H POC Glucose 391 H 313 H Calcium 8.2 L Phosphorus Magnesium AST Alkaline Phosphatase C-Reactive Protein Total Protein Albumin Lipase Vitamin B12 TSH Urine WBC (Auto) Urine Chloride Urine Total Protein Crossmatch 10/13/16 10/13/16 10/13/16 13:32 14:44 15:57 WBC RBC Hgb Hct MCV RDW Plt Count Lymph % (Auto) [place] % (Auto) [place] # Seg Neutrophils % Seg Neuts % (Manual) Lymphocytes % (Manual) Monocytes % (Manual) Nucleated RBC % Seg Neutrophils # Seg Neutrophils # Man Lymphocytes # (Manual) Monocytes # (Manual) Eosinophils # (Manual) Basophils # (Manual) PT INR APTT Heparin Anti-Xa Level POC ABG pH POC ABG pCO2 POC ABG pO2 Sodium Potassium Chloride Carbon Dioxide BUN Creatinine Glucose POC Glucose 296 H 210 H 190 H Calcium Phosphorus Magnesium AST Alkaline Phosphatase C-Reactive Protein Total Protein Albumin Lipase Vitamin B12 TSH Urine WBC (Auto) Urine Chloride Urine Total Protein Crossmatch 10/13/16 10/13/16 10/13/16 16:14 16:14 17:17 WBC RBC Hgb Hct MCV RDW Plt Count Lymph % (Auto) [place] % (Auto) [place] # Seg Neutrophils % Seg Neuts % (Manual) Lymphocytes % (Manual) Monocytes % (Manual) Nucleated RBC % Seg Neutrophils # Seg Neutrophils # Man Lymphocytes # (Manual) Monocytes # (Manual) Eosinophils # (Manual) Basophils # (Manual) PT INR APTT Heparin Anti-Xa Level POC ABG pH POC ABG pCO2 POC ABG pO2 Sodium Potassium Chloride Carbon Dioxide 17 L BUN 58 H Creatinine 1.8 H Glucose 172 H POC Glucose 193 H Calcium 7.7 L Phosphorus Magnesium AST Alkaline Phosphatase C-Reactive Protein 10.50 H Total Protein Albumin Lipase Vitamin B12 TSH Urine WBC (Auto) Urine Chloride Urine Total Protein Crossmatch 10/13/16 10/13/16 10/13/16 17:55 18:32 19:41 WBC RBC Hgb Hct MCV RDW Plt Count Lymph % (Auto) [place] % (Auto) [place] # Seg Neutrophils % Seg Neuts % (Manual) Lymphocytes % (Manual) Monocytes % (Manual) Nucleated RBC % Seg Neutrophils # Seg Neutrophils # Man Lymphocytes # (Manual) Monocytes # (Manual) Eosinophils # (Manual) Basophils # (Manual) PT INR APTT Heparin Anti-Xa Level POC ABG pH POC ABG pCO2 30.6 L POC ABG pO2 218 H Sodium Potassium Chloride Carbon Dioxide BUN Creatinine Glucose POC Glucose 192 H 177 H Calcium Phosphorus Magnesium AST Alkaline Phosphatase C-Reactive Protein Total Protein Albumin Lipase Vitamin B12 TSH Urine WBC (Auto) Urine Chloride Urine Total Protein Crossmatch 10/13/16 10/13/16 10/13/16 20:54 22:07 23:13 WBC RBC Hgb Hct MCV RDW Plt Count Lymph % (Auto) [place] % (Auto) [place] # Seg Neutrophils % Seg Neuts % (Manual) Lymphocytes % (Manual) Monocytes % (Manual) Nucleated RBC % Seg Neutrophils # Seg Neutrophils # Man Lymphocytes # (Manual) Monocytes # (Manual) Eosinophils # (Manual) Basophils # (Manual) PT INR APTT Heparin Anti-Xa Level POC ABG pH POC ABG pCO2 POC ABG pO2 Sodium Potassium Chloride Carbon Dioxide BUN Creatinine Glucose POC Glucose 178 H 160 H 168 H Calcium Phosphorus Magnesium AST Alkaline Phosphatase C-Reactive Protein Total Protein Albumin Lipase Vitamin B12 TSH Urine WBC (Auto) Urine Chloride Urine Total Protein Crossmatch 10/13/16 10/13/16 10/14/16 23:25 Unknown 00:21 WBC RBC Hgb Hct MCV RDW Plt Count Lymph % (Auto) [place] % (Auto) [place] # Seg Neutrophils % Seg Neuts % (Manual) Lymphocytes % (Manual) Monocytes % (Manual) Nucleated RBC % Seg Neutrophils # Seg Neutrophils # Man Lymphocytes # (Manual) Monocytes # (Manual) Eosinophils # (Manual) Basophils # (Manual) PT INR APTT Heparin Anti-Xa Level POC ABG pH POC ABG pCO2 POC ABG pO2 Sodium 148 H Potassium Chloride 114.6 H Carbon Dioxide 17 L BUN 56 H Creatinine 1.6 H Glucose 151 H POC Glucose 171 H Calcium 7.8 L Phosphorus Magnesium AST Alkaline Phosphatase C-Reactive Protein Total Protein Albumin Lipase Vitamin B12 TSH Urine WBC (Auto) Urine Chloride 10.0 L Urine Total Protein < 4 L Crossmatch 10/14/16 10/14/16 10/14/16 01:22 02:29 03:30 WBC RBC Hgb Hct MCV RDW Plt Count Lymph % (Auto) [place] % (Auto) [place] # Seg Neutrophils % Seg Neuts % (Manual) Lymphocytes % (Manual) Monocytes % (Manual) Nucleated RBC % Seg Neutrophils # Seg Neutrophils # Man Lymphocytes # (Manual) Monocytes # (Manual) Eosinophils # (Manual) Basophils # (Manual) PT INR APTT Heparin Anti-Xa Level POC ABG pH POC ABG pCO2 POC ABG pO2 Sodium Potassium Chloride Carbon Dioxide BUN Creatinine Glucose POC Glucose 144 H 136 H 143 H Calcium Phosphorus Magnesium AST Alkaline Phosphatase C-Reactive Protein Total Protein Albumin Lipase Vitamin B12 TSH Urine WBC (Auto) Urine Chloride Urine Total Protein Crossmatch 10/14/16 10/14/16 10/14/16 04:28 05:16 05:44 WBC RBC Hgb Hct MCV RDW Plt Count Lymph % (Auto) [place] % (Auto) [place] # Seg Neutrophils % Seg Neuts % (Manual) Lymphocytes % (Manual) Monocytes % (Manual) Nucleated RBC % Seg Neutrophils # Seg Neutrophils # Man Lymphocytes # (Manual) Monocytes # (Manual) Eosinophils # (Manual) Basophils # (Manual) PT INR APTT Heparin Anti-Xa Level POC ABG pH POC ABG pCO2 28.2 L POC ABG pO2 125 H Sodium Potassium Chloride Carbon Dioxide BUN Creatinine Glucose POC Glucose 133 H 160 H Calcium Phosphorus Magnesium AST Alkaline Phosphatase C-Reactive Protein Total Protein Albumin Lipase Vitamin B12 TSH Urine WBC (Auto) Urine Chloride Urine Total Protein Crossmatch 10/14/16 10/14/16 10/14/16 06:12 06:45 07:03 WBC RBC Hgb Hct MCV RDW Plt Count Lymph % (Auto) [place] % (Auto) [place] # Seg Neutrophils % Seg Neuts % (Manual) Lymphocytes % (Manual) Monocytes % (Manual) Nucleated RBC % Seg Neutrophils # Seg Neutrophils # Man Lymphocytes # (Manual) Monocytes # (Manual) Eosinophils # (Manual) Basophils # (Manual) PT INR APTT Heparin Anti-Xa Level POC ABG pH POC ABG pCO2 POC ABG pO2 Sodium 149 H Potassium Chloride 115.4 H Carbon Dioxide 17 L BUN 45 H Creatinine 1.5 H Glucose 139 H POC Glucose 149 H Calcium 7.4 L Phosphorus 1.0 L D Magnesium AST Alkaline Phosphatase C-Reactive Protein Total Protein Albumin Lipase Vitamin B12 TSH Urine WBC (Auto) Urine Chloride Urine Total Protein Crossmatch 10/14/16 10/14/16 10/14/16 07:03 08:02 09:16 WBC RBC Hgb Hct MCV RDW Plt Count Lymph % (Auto) [place] % (Auto) [place] # Seg Neutrophils % Seg Neuts % (Manual) Lymphocytes % (Manual) Monocytes % (Manual) Nucleated RBC % Seg Neutrophils # Seg Neutrophils # Man Lymphocytes # (Manual) Monocytes # (Manual) Eosinophils # (Manual) Basophils # (Manual) PT INR APTT Heparin Anti-Xa Level POC ABG pH POC ABG pCO2 POC ABG pO2 Sodium Potassium Chloride Carbon Dioxide BUN Creatinine Glucose POC Glucose 156 H 158 H Calcium Phosphorus Magnesium AST Alkaline Phosphatase C-Reactive Protein Total Protein Albumin Lipase 738 H Vitamin B12 TSH Urine WBC (Auto) Urine Chloride Urine Total Protein Crossmatch 10/14/16 10/14/16 10/14/16 10:26 11:03 11:57 WBC RBC Hgb Hct MCV RDW Plt Count Lymph % (Auto) [place] % (Auto) [place] # Seg Neutrophils % Seg Neuts % (Manual) Lymphocytes % (Manual) Monocytes % (Manual) Nucleated RBC % Seg Neutrophils # Seg Neutrophils # Man Lymphocytes # (Manual) Monocytes # (Manual) Eosinophils # (Manual) Basophils # (Manual) PT INR APTT Heparin Anti-Xa Level POC ABG pH 7.198 L POC ABG pCO2 47.5 H POC ABG pO2 Sodium Potassium Chloride Carbon Dioxide BUN Creatinine Glucose POC Glucose 174 H 189 H Calcium Phosphorus Magnesium AST Alkaline Phosphatase C-Reactive Protein Total Protein Albumin Lipase Vitamin B12 TSH Urine WBC (Auto) Urine Chloride Urine Total Protein Crossmatch 10/14/16 10/14/16 10/14/16 12:02 12:02 13:11 WBC 13.4 H RBC 3.60 L Hgb Hct MCV 98 H D RDW 13.1 L Plt Count Lymph % (Auto) [place] % (Auto) [place] # Seg Neutrophils % Seg Neuts % (Manual) Lymphocytes % (Manual) Monocytes % (Manual) Nucleated RBC % Seg Neutrophils # Seg Neutrophils # Man Lymphocytes # (Manual) Monocytes # (Manual) Eosinophils # (Manual) Basophils # (Manual) PT INR APTT Heparin Anti-Xa Level POC ABG pH POC ABG pCO2 POC ABG pO2 Sodium Potassium Chloride 110.7 H Carbon Dioxide 19 L BUN 38 H Creatinine 1.4 H Glucose 182 H POC Glucose 173 H Calcium 7.5 L Phosphorus Magnesium AST Alkaline Phosphatase C-Reactive Protein Total Protein Albumin Lipase Vitamin B12 TSH Urine WBC (Auto) Urine Chloride Urine Total Protein Crossmatch 10/14/16 10/14/16 10/14/16 14:24 15:31 16:36 WBC RBC Hgb Hct MCV RDW Plt Count Lymph % (Auto) [place] % (Auto) [place] # Seg Neutrophils % Seg Neuts % (Manual) Lymphocytes % (Manual) Monocytes % (Manual) Nucleated RBC % Seg Neutrophils # Seg Neutrophils # Man Lymphocytes # (Manual) Monocytes # (Manual) Eosinophils # (Manual) Basophils # (Manual) PT INR APTT Heparin Anti-Xa Level POC ABG pH POC ABG pCO2 POC ABG pO2 Sodium Potassium Chloride Carbon Dioxide BUN Creatinine Glucose POC Glucose 123 H 124 H 156 H Calcium Phosphorus Magnesium AST Alkaline Phosphatase C-Reactive Protein Total Protein Albumin Lipase Vitamin B12 TSH Urine WBC (Auto) Urine Chloride Urine Total Protein Crossmatch 10/14/16 10/14/16 10/14/16 17:43 19:00 20:08 WBC RBC Hgb Hct MCV RDW Plt Count Lymph % (Auto) [place] % (Auto) [place] # Seg Neutrophils % Seg Neuts % (Manual) Lymphocytes % (Manual) Monocytes % (Manual) Nucleated RBC % Seg Neutrophils # Seg Neutrophils # Man Lymphocytes # (Manual) Monocytes # (Manual) Eosinophils # (Manual) Basophils # (Manual) PT INR APTT Heparin Anti-Xa Level POC ABG pH POC ABG pCO2 POC ABG pO2 Sodium Potassium Chloride Carbon Dioxide BUN Creatinine Glucose POC Glucose 154 H 123 H 138 H Calcium Phosphorus Magnesium AST Alkaline Phosphatase C-Reactive Protein Total Protein Albumin Lipase Vitamin B12 TSH Urine WBC (Auto) Urine Chloride Urine Total Protein Crossmatch 10/14/16 10/14/16 10/14/16 21:17 22:25 23:37 WBC RBC Hgb Hct MCV RDW Plt Count Lymph % (Auto) [place] % (Auto) [place] # Seg Neutrophils % Seg Neuts % (Manual) Lymphocytes % (Manual) Monocytes % (Manual) Nucleated RBC % Seg Neutrophils # Seg Neutrophils # Man Lymphocytes # (Manual) Monocytes # (Manual) Eosinophils # (Manual) Basophils # (Manual) PT INR APTT Heparin Anti-Xa Level POC ABG pH POC ABG pCO2 POC ABG pO2 Sodium Potassium Chloride Carbon Dioxide BUN Creatinine Glucose POC Glucose 148 H 132 H 137 H Calcium Phosphorus Magnesium AST Alkaline Phosphatase C-Reactive Protein Total Protein Albumin Lipase Vitamin B12 TSH Urine WBC (Auto) Urine Chloride Urine Total Protein Crossmatch 10/15/16 10/15/16 10/15/16 00:49 01:53 03:06 WBC RBC Hgb Hct MCV RDW Plt Count Lymph % (Auto) [place] % (Auto) [place] # Seg Neutrophils % Seg Neuts % (Manual) Lymphocytes % (Manual) Monocytes % (Manual) Nucleated RBC % Seg Neutrophils # Seg Neutrophils # Man Lymphocytes # (Manual) Monocytes # (Manual) Eosinophils # (Manual) Basophils # (Manual) PT INR APTT Heparin Anti-Xa Level POC ABG pH POC ABG pCO2 POC ABG pO2 Sodium Potassium Chloride Carbon Dioxide BUN Creatinine Glucose POC Glucose 132 H 134 H 134 H Calcium Phosphorus Magnesium AST Alkaline Phosphatase C-Reactive Protein Total Protein Albumin Lipase Vitamin B12 TSH Urine WBC (Auto) Urine Chloride Urine Total Protein Crossmatch 10/15/16 10/15/16 10/15/16 04:40 04:46 06:21 WBC RBC Hgb Hct MCV RDW Plt Count Lymph % (Auto) [place] % (Auto) [place] # Seg Neutrophils % Seg Neuts % (Manual) Lymphocytes % (Manual) Monocytes % (Manual) Nucleated RBC % Seg Neutrophils # Seg Neutrophils # Man Lymphocytes # (Manual) Monocytes # (Manual) Eosinophils # (Manual) Basophils # (Manual) PT INR APTT Heparin Anti-Xa Level POC ABG pH POC ABG pCO2 30.7 L POC ABG pO2 108 H Sodium Potassium Chloride 109.0 H Carbon Dioxide 17 L BUN 27 H Creatinine Glucose 124 H POC Glucose 160 H Calcium 7.5 L Phosphorus Magnesium AST 79 H Alkaline Phosphatase C-Reactive Protein Total Protein 5.5 L Albumin 3.0 L Lipase Vitamin B12 TSH Urine WBC (Auto) Urine Chloride Urine Total Protein Crossmatch 10/15/16 10/15/16 10/15/16 07:12 08:01 09:03 WBC RBC Hgb Hct MCV RDW Plt Count Lymph % (Auto) [place] % (Auto) [place] # Seg Neutrophils % Seg Neuts % (Manual) Lymphocytes % (Manual) Monocytes % (Manual) Nucleated RBC % Seg Neutrophils # Seg Neutrophils # Man Lymphocytes # (Manual) Monocytes # (Manual) Eosinophils # (Manual) Basophils # (Manual) PT INR APTT Heparin Anti-Xa Level POC ABG pH POC ABG pCO2 POC ABG pO2 Sodium Potassium Chloride Carbon Dioxide BUN Creatinine Glucose POC Glucose 179 H 187 H 165 H Calcium Phosphorus Magnesium AST Alkaline Phosphatase C-Reactive Protein Total Protein Albumin Lipase Vitamin B12 TSH Urine WBC (Auto) Urine Chloride Urine Total Protein Crossmatch 10/15/16 10/15/16 10/15/16 10:06 10:06 10:07 WBC 12.1 H RBC 3.01 L Hgb 9.7 L Hct 29.6 L MCV 98 H RDW Plt Count 129 L Lymph % (Auto) [place] % (Auto) [place] # Seg Neutrophils % Seg Neuts % (Manual) Lymphocytes % (Manual) Monocytes % (Manual) Nucleated RBC % Seg Neutrophils # Seg Neutrophils # Man Lymphocytes # (Manual) Monocytes # (Manual) Eosinophils # (Manual) Basophils # (Manual) PT INR APTT Heparin Anti-Xa Level POC ABG pH POC ABG pCO2 POC ABG pO2 Sodium Potassium 3.2 L D Chloride 109.6 H Carbon Dioxide 18 L BUN 22 H Creatinine Glucose 127 H POC Glucose 147 H Calcium 7.0 L Phosphorus Magnesium AST Alkaline Phosphatase C-Reactive Protein Total Protein Albumin Lipase Vitamin B12 TSH Urine WBC (Auto) Urine Chloride Urine Total Protein Crossmatch 10/15/16 10/15/16 10/15/16 11:05 11:06 11:57 WBC RBC Hgb Hct MCV RDW Plt Count Lymph % (Auto) [place] % (Auto) [place] # Seg Neutrophils % Seg Neuts % (Manual) Lymphocytes % (Manual) Monocytes % (Manual) Nucleated RBC % Seg Neutrophils # Seg Neutrophils # Man Lymphocytes # (Manual) Monocytes # (Manual) Eosinophils # (Manual) Basophils # (Manual) PT INR APTT Heparin Anti-Xa Level POC ABG pH 7.305 L POC ABG pCO2 POC ABG pO2 Sodium Potassium Chloride Carbon Dioxide BUN Creatinine Glucose POC Glucose 145 H Calcium Phosphorus Magnesium AST Alkaline Phosphatase C-Reactive Protein Total Protein Albumin Lipase Vitamin B12 TSH Urine WBC (Auto) 7.0 H Urine Chloride Urine Total Protein Crossmatch 10/15/16 10/15/16 10/15/16 12:04 13:59 15:24 WBC RBC Hgb Hct MCV RDW Plt Count Lymph % (Auto) [place] % (Auto) [place] # Seg Neutrophils % Seg Neuts % (Manual) Lymphocytes % (Manual) Monocytes % (Manual) Nucleated RBC % Seg Neutrophils # Seg Neutrophils # Man Lymphocytes # (Manual) Monocytes # (Manual) Eosinophils # (Manual) Basophils # (Manual) PT INR APTT Heparin Anti-Xa Level POC ABG pH POC ABG pCO2 POC ABG pO2 Sodium Potassium Chloride Carbon Dioxide BUN Creatinine Glucose POC Glucose 123 H 147 H 153 H Calcium Phosphorus Magnesium AST Alkaline Phosphatase C-Reactive Protein Total Protein Albumin Lipase Vitamin B12 TSH Urine WBC (Auto) Urine Chloride Urine Total Protein Crossmatch 10/15/16 10/15/16 10/15/16 16:30 17:34 18:30 WBC RBC Hgb Hct MCV RDW Plt Count Lymph % (Auto) [place] % (Auto) [place] # Seg Neutrophils % Seg Neuts % (Manual) Lymphocytes % (Manual) Monocytes % (Manual) Nucleated RBC % Seg Neutrophils # Seg Neutrophils # Man Lymphocytes # (Manual) Monocytes # (Manual) Eosinophils # (Manual) Basophils # (Manual) PT INR APTT Heparin Anti-Xa Level POC ABG pH POC ABG pCO2 POC ABG pO2 Sodium Potassium Chloride Carbon Dioxide BUN Creatinine Glucose POC Glucose 223 H 236 H 164 H Calcium Phosphorus Magnesium AST Alkaline Phosphatase C-Reactive Protein Total Protein Albumin Lipase Vitamin B12 TSH Urine WBC (Auto) Urine Chloride Urine Total Protein Crossmatch 10/15/16 10/15/16 10/15/16 19:14 20:31 21:23 WBC RBC Hgb Hct MCV RDW Plt Count Lymph % (Auto) [place] % (Auto) [place] # Seg Neutrophils % Seg Neuts % (Manual) Lymphocytes % (Manual) Monocytes % (Manual) Nucleated RBC % Seg Neutrophils # Seg Neutrophils # Man Lymphocytes # (Manual) Monocytes # (Manual) Eosinophils # (Manual) Basophils # (Manual) PT INR APTT Heparin Anti-Xa Level POC ABG pH POC ABG pCO2 POC ABG pO2 Sodium Potassium Chloride Carbon Dioxide BUN Creatinine Glucose POC Glucose 138 H 158 H 158 H Calcium Phosphorus Magnesium AST Alkaline Phosphatase C-Reactive Protein Total Protein Albumin Lipase Vitamin B12 TSH Urine WBC (Auto) Urine Chloride Urine Total Protein Crossmatch 10/15/16 10/15/16 10/16/16 22:04 22:57 00:11 WBC RBC Hgb Hct MCV RDW Plt Count Lymph % (Auto) [place] % (Auto) [place] # Seg Neutrophils % Seg Neuts % (Manual) Lymphocytes % (Manual) Monocytes % (Manual) Nucleated RBC % Seg Neutrophils # Seg Neutrophils # Man Lymphocytes # (Manual) Monocytes # (Manual) Eosinophils # (Manual) Basophils # (Manual) PT INR APTT Heparin Anti-Xa Level POC ABG pH POC ABG pCO2 POC ABG pO2 Sodium Potassium Chloride Carbon Dioxide BUN Creatinine Glucose POC Glucose 168 H 213 H 166 H Calcium Phosphorus Magnesium AST Alkaline Phosphatase C-Reactive Protein Total Protein Albumin Lipase Vitamin B12 TSH Urine WBC (Auto) Urine Chloride Urine Total Protein Crossmatch 10/16/16 10/16/16 10/16/16 01:16 02:32 03:38 WBC RBC Hgb Hct MCV RDW Plt Count Lymph % (Auto) [place] % (Auto) [place] # Seg Neutrophils % Seg Neuts % (Manual) Lymphocytes % (Manual) Monocytes % (Manual) Nucleated RBC % Seg Neutrophils # Seg Neutrophils # Man Lymphocytes # (Manual) Monocytes # (Manual) Eosinophils # (Manual) Basophils # (Manual) PT INR APTT Heparin Anti-Xa Level POC ABG pH POC ABG pCO2 POC ABG pO2 Sodium Potassium Chloride Carbon Dioxide BUN Creatinine Glucose POC Glucose 171 H 164 H 147 H Calcium Phosphorus Magnesium AST Alkaline Phosphatase C-Reactive Protein Total Protein Albumin Lipase Vitamin B12 TSH Urine WBC (Auto) Urine Chloride Urine Total Protein Crossmatch 10/16/16 10/16/16 10/16/16 04:14 04:14 04:49 WBC RBC Hgb Hct MCV RDW Plt Count Lymph % (Auto) [place] % (Auto) [place] # Seg Neutrophils % Seg Neuts % (Manual) Lymphocytes % (Manual) Monocytes % (Manual) Nucleated RBC % Seg Neutrophils # Seg Neutrophils # Man Lymphocytes # (Manual) Monocytes # (Manual) Eosinophils # (Manual) Basophils # (Manual) PT INR APTT Heparin Anti-Xa Level POC ABG pH POC ABG pCO2 POC ABG pO2 Sodium 147 H Potassium Chloride 110.9 H Carbon Dioxide 19 L BUN Creatinine Glucose 139 H POC Glucose 144 H Calcium 7.3 L Phosphorus 2.3 L Magnesium AST Alkaline Phosphatase C-Reactive Protein Total Protein Albumin Lipase 143 H Vitamin B12 TSH Urine WBC (Auto) Urine Chloride Urine Total Protein Crossmatch 10/16/16 10/16/16 10/16/16 05:03 05:41 05:58 WBC 16.5 H RBC 3.36 L Hgb Hct MCV 98 H RDW 13.1 L Plt Count Lymph % (Auto) 8.5 L [place] % (Auto) 7.6 H [place] # 1.3 H Seg Neutrophils % 83.3 H Seg Neuts % (Manual) Lymphocytes % (Manual) Monocytes % (Manual) Nucleated RBC % Seg Neutrophils # 13.8 H Seg Neutrophils # Man Lymphocytes # (Manual) Monocytes # (Manual) Eosinophils # (Manual) Basophils # (Manual) PT INR APTT Heparin Anti-Xa Level POC ABG pH POC ABG pCO2 30.7 L POC ABG pO2 128 H Sodium Potassium Chloride Carbon Dioxide BUN Creatinine Glucose POC Glucose 131 H Calcium Phosphorus Magnesium AST Alkaline Phosphatase C-Reactive Protein Total Protein Albumin Lipase Vitamin B12 TSH Urine WBC (Auto) Urine Chloride Urine Total Protein Crossmatch 10/16/16 10/16/16 10/16/16 06:32 09:27 09:35 WBC RBC Hgb Hct MCV RDW Plt Count Lymph % (Auto) [place] % (Auto) [place] # Seg Neutrophils % Seg Neuts % (Manual) Lymphocytes % (Manual) Monocytes % (Manual) Nucleated RBC % Seg Neutrophils # Seg Neutrophils # Man Lymphocytes # (Manual) Monocytes # (Manual) Eosinophils # (Manual) Basophils # (Manual) PT INR APTT Heparin Anti-Xa Level POC ABG pH POC ABG pCO2 32.8 L POC ABG pO2 137 H Sodium Potassium Chloride Carbon Dioxide BUN Creatinine Glucose POC Glucose 121 H 150 H Calcium Phosphorus Magnesium AST Alkaline Phosphatase C-Reactive Protein Total Protein Albumin Lipase Vitamin B12 TSH Urine WBC (Auto) Urine Chloride Urine Total Protein Crossmatch 10/16/16 10/16/16 10/16/16 10:47 13:27 14:24 WBC RBC Hgb Hct MCV RDW Plt Count Lymph % (Auto) [place] % (Auto) [place] # Seg Neutrophils % Seg Neuts % (Manual) Lymphocytes % (Manual) Monocytes % (Manual) Nucleated RBC % Seg Neutrophils # Seg Neutrophils # Man Lymphocytes # (Manual) Monocytes # (Manual) Eosinophils # (Manual) Basophils # (Manual) PT INR APTT Heparin Anti-Xa Level POC ABG pH POC ABG pCO2 POC ABG pO2 Sodium Potassium Chloride Carbon Dioxide BUN Creatinine Glucose POC Glucose 184 H 171 H 174 H Calcium Phosphorus Magnesium AST Alkaline Phosphatase C-Reactive Protein Total Protein Albumin Lipase Vitamin B12 TSH Urine WBC (Auto) Urine Chloride Urine Total Protein Crossmatch 10/16/16 10/16/16 10/16/16 15:48 16:26 18:17 WBC RBC Hgb Hct MCV RDW Plt Count Lymph % (Auto) [place] % (Auto) [place] # Seg Neutrophils % Seg Neuts % (Manual) Lymphocytes % (Manual) Monocytes % (Manual) Nucleated RBC % Seg Neutrophils # Seg Neutrophils # Man Lymphocytes # (Manual) Monocytes # (Manual) Eosinophils # (Manual) Basophils # (Manual) PT INR APTT Heparin Anti-Xa Level POC ABG pH POC ABG pCO2 POC ABG pO2 Sodium Potassium Chloride Carbon Dioxide BUN Creatinine Glucose POC Glucose 205 H 204 H 234 H Calcium Phosphorus Magnesium AST Alkaline Phosphatase C-Reactive Protein Total Protein Albumin Lipase Vitamin B12 TSH Urine WBC (Auto) Urine Chloride Urine Total Protein Crossmatch 10/16/16 10/16/16 10/16/16 19:40 20:33 21:36 WBC RBC Hgb Hct MCV RDW Plt Count Lymph % (Auto) [place] % (Auto) [place] # Seg Neutrophils % Seg Neuts % (Manual) Lymphocytes % (Manual) Monocytes % (Manual) Nucleated RBC % Seg Neutrophils # Seg Neutrophils # Man Lymphocytes # (Manual) Monocytes # (Manual) Eosinophils # (Manual) Basophils # (Manual) PT INR APTT Heparin Anti-Xa Level POC ABG pH POC ABG pCO2 POC ABG pO2 Sodium Potassium Chloride Carbon Dioxide BUN Creatinine Glucose POC Glucose 167 H 153 H 158 H Calcium Phosphorus Magnesium AST Alkaline Phosphatase C-Reactive Protein Total Protein Albumin Lipase Vitamin B12 TSH Urine WBC (Auto) Urine Chloride Urine Total Protein Crossmatch 10/16/16 10/16/16 10/17/16 22:54 23:48 00:47 WBC RBC Hgb Hct MCV RDW Plt Count Lymph % (Auto) [place] % (Auto) [place] # Seg Neutrophils % Seg Neuts % (Manual) Lymphocytes % (Manual) Monocytes % (Manual) Nucleated RBC % Seg Neutrophils # Seg Neutrophils # Man Lymphocytes # (Manual) Monocytes # (Manual) Eosinophils # (Manual) Basophils # (Manual) PT INR APTT Heparin Anti-Xa Level POC ABG pH POC ABG pCO2 POC ABG pO2 Sodium Potassium Chloride Carbon Dioxide BUN Creatinine Glucose POC Glucose 180 H 207 H 196 H Calcium Phosphorus Magnesium AST Alkaline Phosphatase C-Reactive Protein Total Protein Albumin Lipase Vitamin B12 TSH Urine WBC (Auto) Urine Chloride Urine Total Protein Crossmatch 10/17/16 10/17/16 10/17/16 01:57 02:49 03:50 WBC RBC Hgb Hct MCV RDW Plt Count Lymph % (Auto) [place] % (Auto) [place] # Seg Neutrophils % Seg Neuts % (Manual) Lymphocytes % (Manual) Monocytes % (Manual) Nucleated RBC % Seg Neutrophils # Seg Neutrophils # Man Lymphocytes # (Manual) Monocytes # (Manual) Eosinophils # (Manual) Basophils # (Manual) PT INR APTT Heparin Anti-Xa Level POC ABG pH POC ABG pCO2 POC ABG pO2 Sodium Potassium Chloride Carbon Dioxide BUN Creatinine Glucose POC Glucose 180 H 151 H 106 H Calcium Phosphorus Magnesium AST Alkaline Phosphatase C-Reactive Protein Total Protein Albumin Lipase Vitamin B12 TSH Urine WBC (Auto) Urine Chloride Urine Total Protein Crossmatch 10/17/16 10/17/16 10/17/16 04:59 06:03 06:35 WBC RBC Hgb Hct MCV RDW Plt Count Lymph % (Auto) [place] % (Auto) [place] # Seg Neutrophils % Seg Neuts % (Manual) Lymphocytes % (Manual) Monocytes % (Manual) Nucleated RBC % Seg Neutrophils # Seg Neutrophils # Man Lymphocytes # (Manual) Monocytes # (Manual) Eosinophils # (Manual) Basophils # (Manual) PT INR APTT Heparin Anti-Xa Level POC ABG pH 7.453 H POC ABG pCO2 30.1 L POC ABG pO2 111 H Sodium Potassium Chloride Carbon Dioxide BUN Creatinine Glucose POC Glucose 145 H 157 H Calcium Phosphorus Magnesium AST Alkaline Phosphatase C-Reactive Protein Total Protein Albumin Lipase Vitamin B12 TSH Urine WBC (Auto) Urine Chloride Urine Total Protein Crossmatch 10/17/16 10/17/16 10/17/16 07:08 07:11 08:01 WBC RBC Hgb Hct MCV RDW Plt Count Lymph % (Auto) [place] % (Auto) [place] # Seg Neutrophils % Seg Neuts % (Manual) Lymphocytes % (Manual) Monocytes % (Manual) Nucleated RBC % Seg Neutrophils # Seg Neutrophils # Man Lymphocytes # (Manual) Monocytes # (Manual) Eosinophils # (Manual) Basophils # (Manual) PT INR APTT Heparin Anti-Xa Level POC ABG pH POC ABG pCO2 POC ABG pO2 Sodium 147 H Potassium Chloride 113.8 H Carbon Dioxide 19 L BUN Creatinine Glucose 136 H POC Glucose 136 H 152 H Calcium 7.7 L Phosphorus Magnesium AST Alkaline Phosphatase C-Reactive Protein Total Protein Albumin Lipase Vitamin B12 TSH Urine WBC (Auto) Urine Chloride Urine Total Protein Crossmatch 10/17/16 10/17/16 10/17/16 08:23 09:17 09:53 WBC 18.1 H RBC 3.01 L Hgb 9.7 L Hct 29.4 L MCV 98 H RDW Plt Count 116 L Lymph % (Auto) [place] % (Auto) [place] # Seg Neutrophils % Seg Neuts % (Manual) 77.0 H Lymphocytes % (Manual) 4.0 L Monocytes % (Manual) 12.0 H Nucleated RBC % Seg Neutrophils # Seg Neutrophils # Man 13.9 H Lymphocytes # (Manual) 0.7 L Monocytes # (Manual) 2.2 H Eosinophils # (Manual) Basophils # (Manual) PT INR APTT Heparin Anti-Xa Level POC ABG pH POC ABG pCO2 POC ABG pO2 Sodium Potassium Chloride Carbon Dioxide BUN Creatinine Glucose POC Glucose 148 H 137 H Calcium Phosphorus Magnesium AST Alkaline Phosphatase C-Reactive Protein Total Protein Albumin Lipase Vitamin B12 TSH Urine WBC (Auto) Urine Chloride Urine Total Protein Crossmatch 10/17/16 10/17/16 10/17/16 11:43 16:07 17:42 WBC RBC Hgb Hct MCV RDW Plt Count Lymph % (Auto) [place] % (Auto) [place] # Seg Neutrophils % Seg Neuts % (Manual) Lymphocytes % (Manual) Monocytes % (Manual) Nucleated RBC % Seg Neutrophils # Seg Neutrophils # Man Lymphocytes # (Manual) Monocytes # (Manual) Eosinophils # (Manual) Basophils # (Manual) PT 16.4 H INR 1.33 H APTT 38.8 H Heparin Anti-Xa Level POC ABG pH POC ABG pCO2 POC ABG pO2 Sodium Potassium Chloride Carbon Dioxide BUN Creatinine Glucose POC Glucose 179 H 153 H Calcium Phosphorus Magnesium AST Alkaline Phosphatase C-Reactive Protein Total Protein Albumin Lipase Vitamin B12 TSH Urine WBC (Auto) Urine Chloride Urine Total Protein Crossmatch 10/17/16 10/18/16 10/18/16 22:54 04:37 05:39 WBC RBC Hgb Hct MCV RDW Plt Count Lymph % (Auto) [place] % (Auto) [place] # Seg Neutrophils % Seg Neuts % (Manual) Lymphocytes % (Manual) Monocytes % (Manual) Nucleated RBC % Seg Neutrophils # Seg Neutrophils # Man Lymphocytes # (Manual) Monocytes # (Manual) Eosinophils # (Manual) Basophils # (Manual) PT INR APTT Heparin Anti-Xa Level 0.27 L POC ABG pH 7.454 H POC ABG pCO2 30.8 L POC ABG pO2 115 H Sodium Potassium Chloride Carbon Dioxide BUN Creatinine Glucose POC Glucose 69 L Calcium Phosphorus Magnesium AST Alkaline Phosphatase C-Reactive Protein Total Protein Albumin Lipase Vitamin B12 TSH Urine WBC (Auto) Urine Chloride Urine Total Protein Crossmatch 10/18/16 10/18/16 10/18/16 06:46 06:46 06:46 WBC 20.5 H RBC 2.62 L Hgb 8.4 L Hct 26.0 L MCV 100 H RDW Plt Count Lymph % (Auto) [place] % (Auto) [place] # Seg Neutrophils % Seg Neuts % (Manual) 75.0 H Lymphocytes % (Manual) 9.0 L Monocytes % (Manual) 14.0 H Nucleated RBC % Seg Neutrophils # Seg Neutrophils # Man 15.4 H Lymphocytes # (Manual) Monocytes # (Manual) 2.9 H Eosinophils # (Manual) Basophils # (Manual) PT INR APTT Heparin Anti-Xa Level POC ABG pH POC ABG pCO2 POC ABG pO2 Sodium Potassium Chloride 110.6 H Carbon Dioxide BUN Creatinine 1.3 H Glucose 153 H POC Glucose Calcium 8.0 L Phosphorus Magnesium 1.6 L AST Alkaline Phosphatase C-Reactive Protein Total Protein Albumin Lipase Vitamin B12 TSH Urine WBC (Auto) Urine Chloride Urine Total Protein Crossmatch 10/18/16 10/18/16 10/18/16 07:30 11:37 17:51 WBC RBC Hgb Hct MCV RDW Plt Count Lymph % (Auto) [place] % (Auto) [place] # Seg Neutrophils % Seg Neuts % (Manual) Lymphocytes % (Manual) Monocytes % (Manual) Nucleated RBC % Seg Neutrophils # Seg Neutrophils # Man Lymphocytes # (Manual) Monocytes # (Manual) Eosinophils # (Manual) Basophils # (Manual) PT INR APTT Heparin Anti-Xa Level POC ABG pH POC ABG pCO2 POC ABG pO2 Sodium Potassium Chloride Carbon Dioxide BUN Creatinine Glucose POC Glucose 162 H 156 H 164 H Calcium Phosphorus Magnesium AST Alkaline Phosphatase C-Reactive Protein Total Protein Albumin Lipase Vitamin B12 TSH Urine WBC (Auto) Urine Chloride Urine Total Protein Crossmatch 10/18/16 10/19/16 10/19/16 23:44 03:59 05:13 WBC 18.2 H RBC 2.76 L Hgb 9.0 L Hct 27.7 L MCV 100 H RDW Plt Count Lymph % (Auto) [place] % (Auto) [place] # Seg Neutrophils % Seg Neuts % (Manual) 76.0 H Lymphocytes % (Manual) 10.0 L Monocytes % (Manual) Nucleated RBC % Seg Neutrophils # Seg Neutrophils # Man 13.8 H Lymphocytes # (Manual) Monocytes # (Manual) Eosinophils # (Manual) Basophils # (Manual) PT INR APTT Heparin Anti-Xa Level POC ABG pH POC ABG pCO2 32.2 L POC ABG pO2 128 H Sodium Potassium Chloride Carbon Dioxide BUN Creatinine Glucose POC Glucose 278 H Calcium Phosphorus Magnesium AST Alkaline Phosphatase C-Reactive Protein Total Protein Albumin Lipase Vitamin B12 TSH Urine WBC (Auto) Urine Chloride Urine Total Protein Crossmatch 10/19/16 10/19/16 10/19/16 06:01 06:30 12:20 WBC RBC Hgb Hct MCV RDW Plt Count Lymph % (Auto) [place] % (Auto) [place] # Seg Neutrophils % Seg Neuts % (Manual) Lymphocytes % (Manual) Monocytes % (Manual) Nucleated RBC % Seg Neutrophils # Seg Neutrophils # Man Lymphocytes # (Manual) Monocytes # (Manual) Eosinophils # (Manual) Basophils # (Manual) PT INR APTT Heparin Anti-Xa Level POC ABG pH POC ABG pCO2 POC ABG pO2 Sodium Potassium Chloride Carbon Dioxide 18 L BUN Creatinine 1.3 H Glucose 262 H POC Glucose 261 H 349 H Calcium 7.7 L Phosphorus 4.8 H D Magnesium AST Alkaline Phosphatase C-Reactive Protein Total Protein Albumin Lipase Vitamin B12 TSH Urine WBC (Auto) Urine Chloride Urine Total Protein Crossmatch 10/19/16 10/20/16 10/20/16 16:48 00:17 05:20 WBC 22.5 H RBC 2.80 L Hgb 8.9 L Hct 28.3 L MCV 101 H RDW Plt Count Lymph % (Auto) [place] % (Auto) [place] # Seg Neutrophils % Seg Neuts % (Manual) Lymphocytes % (Manual) 10.0 L Monocytes % (Manual) Nucleated RBC % Seg Neutrophils # Seg Neutrophils # Man 13.3 H Lymphocytes # (Manual) Monocytes # (Manual) 1.1 H Eosinophils # (Manual) 0.7 H Basophils # (Manual) PT INR APTT Heparin Anti-Xa Level POC ABG pH POC ABG pCO2 POC ABG pO2 Sodium Potassium Chloride Carbon Dioxide BUN Creatinine Glucose POC Glucose 248 H 346 H Calcium Phosphorus Magnesium AST Alkaline Phosphatase C-Reactive Protein Total Protein Albumin Lipase Vitamin B12 TSH Urine WBC (Auto) Urine Chloride Urine Total Protein Crossmatch 10/20/16 10/20/16 10/20/16 05:20 05:20 06:05 WBC RBC Hgb Hct MCV RDW Plt Count Lymph % (Auto) [place] % (Auto) [place] # Seg Neutrophils % Seg Neuts % (Manual) Lymphocytes % (Manual) Monocytes % (Manual) Nucleated RBC % Seg Neutrophils # Seg Neutrophils # Man Lymphocytes # (Manual) Monocytes # (Manual) Eosinophils # (Manual) Basophils # (Manual) PT INR APTT Heparin Anti-Xa Level 0.20 L POC ABG pH POC ABG pCO2 POC ABG pO2 Sodium Potassium Chloride Carbon Dioxide BUN 20 H Creatinine Glucose 374 H POC Glucose 337 H Calcium 8.3 L Phosphorus Magnesium AST Alkaline Phosphatase C-Reactive Protein Total Protein Albumin Lipase Vitamin B12 TSH Urine WBC (Auto) Urine Chloride Urine Total Protein Crossmatch 10/20/16 10/20/16 10/20/16 11:49 13:59 17:56 WBC RBC Hgb Hct MCV RDW Plt Count Lymph % (Auto) [place] % (Auto) [place] # Seg Neutrophils % Seg Neuts % (Manual) Lymphocytes % (Manual) Monocytes % (Manual) Nucleated RBC % Seg Neutrophils # Seg Neutrophils # Man Lymphocytes # (Manual) Monocytes # (Manual) Eosinophils # (Manual) Basophils # (Manual) PT INR APTT Heparin Anti-Xa Level 2.00 H POC ABG pH POC ABG pCO2 POC ABG pO2 Sodium Potassium Chloride Carbon Dioxide BUN Creatinine Glucose POC Glucose 305 H 362 H Calcium Phosphorus Magnesium AST Alkaline Phosphatase C-Reactive Protein Total Protein Albumin Lipase Vitamin B12 TSH Urine WBC (Auto) Urine Chloride Urine Total Protein Crossmatch 10/20/16 10/21/16 10/21/16 23:52 05:00 05:49 WBC 22.9 H RBC 2.49 L Hgb 7.7 L Hct 25.6 L MCV 103 H RDW Plt Count Lymph % (Auto) [place] % (Auto) [place] # Seg Neutrophils % Seg Neuts % (Manual) 94.0 H Lymphocytes % (Manual) 1.0 L Monocytes % (Manual) Nucleated RBC % Seg Neutrophils # Seg Neutrophils # Man 21.5 H Lymphocytes # (Manual) 0.2 L Monocytes # (Manual) 1.1 H Eosinophils # (Manual) Basophils # (Manual) PT INR APTT Heparin Anti-Xa Level POC ABG pH POC ABG pCO2 POC ABG pO2 Sodium Potassium Chloride Carbon Dioxide BUN Creatinine Glucose POC Glucose 252 H 180 H Calcium Phosphorus Magnesium AST Alkaline Phosphatase C-Reactive Protein Total Protein Albumin Lipase Vitamin B12 TSH Urine WBC (Auto) Urine Chloride Urine Total Protein Crossmatch 10/21/16 10/21/16 10/21/16 11:47 11:49 14:10 WBC RBC Hgb Hct MCV RDW Plt Count Lymph % (Auto) [place] % (Auto) [place] # Seg Neutrophils % Seg Neuts % (Manual) Lymphocytes % (Manual) Monocytes % (Manual) Nucleated RBC % Seg Neutrophils # Seg Neutrophils # Man Lymphocytes # (Manual) Monocytes # (Manual) Eosinophils # (Manual) Basophils # (Manual) PT INR APTT Heparin Anti-Xa Level POC ABG pH POC ABG pCO2 POC ABG pO2 Sodium Potassium Chloride Carbon Dioxide BUN Creatinine Glucose POC Glucose 50 L 56 L 140 H Calcium Phosphorus Magnesium AST Alkaline Phosphatase C-Reactive Protein Total Protein Albumin Lipase Vitamin B12 TSH Urine WBC (Auto) Urine Chloride Urine Total Protein Crossmatch 10/21/16 10/21/16 10/22/16 18:24 Unknown 00:07 WBC RBC Hgb Hct MCV RDW Plt Count Lymph % (Auto) [place] % (Auto) [place] # Seg Neutrophils % Seg Neuts % (Manual) Lymphocytes % (Manual) Monocytes % (Manual) Nucleated RBC % Seg Neutrophils # Seg Neutrophils # Man Lymphocytes # (Manual) Monocytes # (Manual) Eosinophils # (Manual) Basophils # (Manual) PT INR APTT Heparin Anti-Xa Level POC ABG pH POC ABG pCO2 POC ABG pO2 Sodium 150 H Potassium 3.1 L Chloride 112.4 H Carbon Dioxide BUN 25 H Creatinine 1.4 H Glucose POC Glucose 175 H 218 H Calcium 8.0 L Phosphorus Magnesium AST Alkaline Phosphatase C-Reactive Protein Total Protein Albumin Lipase Vitamin B12 TSH Urine WBC (Auto) Urine Chloride Urine Total Protein Crossmatch 10/22/16 10/22/16 10/22/16 04:20 04:20 10:25 WBC 20.8 H RBC 2.37 L Hgb 7.5 L Hct 23.9 L MCV 101 H RDW Plt Count Lymph % (Auto) [place] % (Auto) [place] # Seg Neutrophils % Seg Neuts % (Manual) 89.0 H Lymphocytes % (Manual) 7.0 L Monocytes % (Manual) Nucleated RBC % Seg Neutrophils # Seg Neutrophils # Man 18.5 H Lymphocytes # (Manual) Monocytes # (Manual) Eosinophils # (Manual) Basophils # (Manual) 0.2 H PT INR APTT Heparin Anti-Xa Level POC ABG pH POC ABG pCO2 POC ABG pO2 Sodium 148 H Potassium 2.9 L* Chloride 109.4 H Carbon Dioxide BUN 26 H Creatinine Glucose 140 H POC Glucose Calcium 7.5 L Phosphorus Magnesium AST Alkaline Phosphatase C-Reactive Protein Total Protein Albumin Lipase Vitamin B12 976.8 H TSH Urine WBC (Auto) Urine Chloride Urine Total Protein Crossmatch 10/22/16 10/22/16 10/22/16 10:25 14:50 18:16 WBC RBC Hgb Hct MCV RDW Plt Count Lymph % (Auto) [place] % (Auto) [place] # Seg Neutrophils % Seg Neuts % (Manual) Lymphocytes % (Manual) Monocytes % (Manual) Nucleated RBC % Seg Neutrophils # Seg Neutrophils # Man Lymphocytes # (Manual) Monocytes # (Manual) Eosinophils # (Manual) Basophils # (Manual) PT INR APTT Heparin Anti-Xa Level POC ABG pH POC ABG pCO2 POC ABG pO2 Sodium Potassium Chloride Carbon Dioxide BUN Creatinine Glucose POC Glucose 193 H Calcium Phosphorus Magnesium AST Alkaline Phosphatase C-Reactive Protein Total Protein Albumin Lipase Vitamin B12 TSH 0.143 L 0.162 L Urine WBC (Auto) Urine Chloride Urine Total Protein Crossmatch 10/22/16 10/22/16 10/22/16 20:00 20:00 20:00 WBC 24.1 H RBC 2.58 L Hgb 8.2 L Hct 26.4 L MCV 102 H RDW Plt Count Lymph % (Auto) [place] % (Auto) [place] # Seg Neutrophils % Seg Neuts % (Manual) 74.0 H Lymphocytes % (Manual) 7.0 L Monocytes % (Manual) Nucleated RBC % Seg Neutrophils # Seg Neutrophils # Man 17.8 H Lymphocytes # (Manual) Monocytes # (Manual) Eosinophils # (Manual) Basophils # (Manual) PT INR APTT Heparin Anti-Xa Level 1.92 H POC ABG pH POC ABG pCO2 POC ABG pO2 Sodium Potassium Chloride Carbon Dioxide BUN Creatinine Glucose POC Glucose Calcium Phosphorus Magnesium AST Alkaline Phosphatase C-Reactive Protein Total Protein Albumin Lipase Vitamin B12 TSH Urine WBC (Auto) Urine Chloride Urine Total Protein Crossmatch See Detail 10/23/16 10/23/16 10/23/16 00:21 06:09 12:07 WBC RBC Hgb Hct MCV RDW Plt Count Lymph % (Auto) [place] % (Auto) [place] # Seg Neutrophils % Seg Neuts % (Manual) Lymphocytes % (Manual) Monocytes % (Manual) Nucleated RBC % Seg Neutrophils # Seg Neutrophils # Man Lymphocytes # (Manual) Monocytes # (Manual) Eosinophils # (Manual) Basophils # (Manual) PT INR APTT Heparin Anti-Xa Level POC ABG pH POC ABG pCO2 POC ABG pO2 Sodium Potassium Chloride Carbon Dioxide BUN Creatinine Glucose POC Glucose 283 H 241 H 340 H Calcium Phosphorus Magnesium AST Alkaline Phosphatase C-Reactive Protein Total Protein Albumin Lipase Vitamin B12 TSH Urine WBC (Auto) Urine Chloride Urine Total Protein Crossmatch 10/23/16 10/23/16 10/23/16 14:01 16:00 17:59 WBC RBC Hgb Hct MCV RDW Plt Count Lymph % (Auto) [place] % (Auto) [place] # Seg Neutrophils % Seg Neuts % (Manual) Lymphocytes % (Manual) Monocytes % (Manual) Nucleated RBC % Seg Neutrophils # Seg Neutrophils # Man Lymphocytes # (Manual) Monocytes # (Manual) Eosinophils # (Manual) Basophils # (Manual) PT INR APTT Heparin Anti-Xa Level 0.19 L POC ABG pH POC ABG pCO2 32.4 L POC ABG pO2 Sodium Potassium Chloride Carbon Dioxide BUN Creatinine Glucose POC Glucose 245 H Calcium Phosphorus Magnesium AST Alkaline Phosphatase C-Reactive Protein Total Protein Albumin Lipase Vitamin B12 TSH Urine WBC (Auto) Urine Chloride Urine Total Protein Crossmatch 10/23/16 10/23/16 10/23/16 22:55 Unknown Unknown WBC 22.6 H RBC 3.26 L Hgb Hct MCV RDW 17.1 H Plt Count Lymph % (Auto) [place] % (Auto) [place] # Seg Neutrophils % Seg Neuts % (Manual) Lymphocytes % (Manual) 11.0 L Monocytes % (Manual) Nucleated RBC % Seg Neutrophils # Seg Neutrophils # Man 14.0 H Lymphocytes # (Manual) Monocytes # (Manual) Eosinophils # (Manual) Basophils # (Manual) PT INR APTT Heparin Anti-Xa Level 0.17 L 0.15 L POC ABG pH POC ABG pCO2 POC ABG pO2 Sodium Potassium Chloride Carbon Dioxide BUN Creatinine Glucose POC Glucose Calcium Phosphorus Magnesium AST Alkaline Phosphatase C-Reactive Protein Total Protein Albumin Lipase Vitamin B12 TSH Urine WBC (Auto) Urine Chloride Urine Total Protein Crossmatch 10/23/16 10/24/16 10/24/16 Unknown 00:05 05:30 WBC RBC Hgb Hct MCV RDW Plt Count Lymph % (Auto) [place] % (Auto) [place] # Seg Neutrophils % Seg Neuts % (Manual) Lymphocytes % (Manual) Monocytes % (Manual) Nucleated RBC % Seg Neutrophils # Seg Neutrophils # Man Lymphocytes # (Manual) Monocytes # (Manual) Eosinophils # (Manual) Basophils # (Manual) PT INR APTT Heparin Anti-Xa Level 0.13 L POC ABG pH POC ABG pCO2 POC ABG pO2 Sodium Potassium Chloride 111.2 H Carbon Dioxide 20 L BUN 25 H Creatinine Glucose 227 H POC Glucose 118 H Calcium 7.1 L Phosphorus Magnesium AST Alkaline Phosphatase C-Reactive Protein Total Protein Albumin Lipase Vitamin B12 TSH Urine WBC (Auto) Urine Chloride Urine Total Protein Crossmatch 10/24/16 10/24/16 10/24/16 11:00 11:00 12:06 WBC 17.6 H RBC 2.92 L Hgb 9.2 L Hct 28.3 L MCV RDW 16.9 H Plt Count Lymph % (Auto) [place] % (Auto) [place] # Seg Neutrophils % Seg Neuts % (Manual) Lymphocytes % (Manual) Monocytes % (Manual) Nucleated RBC % Seg Neutrophils # Seg Neutrophils # Man Lymphocytes # (Manual) Monocytes # (Manual) Eosinophils # (Manual) Basophils # (Manual) PT INR APTT Heparin Anti-Xa Level 0.27 L POC ABG pH POC ABG pCO2 POC ABG pO2 Sodium Potassium Chloride Carbon Dioxide BUN Creatinine Glucose POC Glucose 166 H Calcium Phosphorus Magnesium AST Alkaline Phosphatase C-Reactive Protein Total Protein Albumin Lipase Vitamin B12 TSH Urine WBC (Auto) Urine Chloride Urine Total Protein Crossmatch 10/24/16 10/25/16 10/25/16 12:27 00:49 03:30 WBC RBC Hgb 8.8 L Hct 28.1 L MCV RDW Plt Count Lymph % (Auto) [place] % (Auto) [place] # Seg Neutrophils % Seg Neuts % (Manual) Lymphocytes % (Manual) Monocytes % (Manual) Nucleated RBC % Seg Neutrophils # Seg Neutrophils # Man Lymphocytes # (Manual) Monocytes # (Manual) Eosinophils # (Manual) Basophils # (Manual) PT INR APTT Heparin Anti-Xa Level POC ABG pH POC ABG pCO2 33.9 L POC ABG pO2 Sodium Potassium Chloride Carbon Dioxide BUN Creatinine Glucose POC Glucose 121 H Calcium Phosphorus Magnesium AST Alkaline Phosphatase C-Reactive Protein Total Protein Albumin Lipase Vitamin B12 TSH Urine WBC (Auto) Urine Chloride Urine Total Protein Crossmatch 10/25/16 10/25/16 10/25/16 09:49 12:10 19:25 WBC 21.1 H RBC 3.02 L Hgb 9.3 L Hct 28.9 L MCV RDW 16.3 H Plt Count Lymph % (Auto) [place] % (Auto) [place] # Seg Neutrophils % Seg Neuts % (Manual) 81.0 H Lymphocytes % (Manual) 9.0 L Monocytes % (Manual) Nucleated RBC % Seg Neutrophils # Seg Neutrophils # Man 17.1 H Lymphocytes # (Manual) Monocytes # (Manual) Eosinophils # (Manual) Basophils # (Manual) PT INR APTT Heparin Anti-Xa Level POC ABG pH POC ABG pCO2 POC ABG pO2 Sodium Potassium Chloride Carbon Dioxide BUN Creatinine Glucose POC Glucose 158 H 151 H Calcium Phosphorus Magnesium AST Alkaline Phosphatase C-Reactive Protein Total Protein Albumin Lipase Vitamin B12 TSH Urine WBC (Auto) Urine Chloride Urine Total Protein Crossmatch 10/26/16 10/26/16 10/26/16 00:20 01:09 05:02 WBC 22.2 H RBC 2.89 L Hgb 8.7 L Hct 27.8 L MCV RDW 16.4 H Plt Count Lymph % (Auto) [place] % (Auto) [place] # Seg Neutrophils % Seg Neuts % (Manual) Lymphocytes % (Manual) Monocytes % (Manual) Nucleated RBC % Seg Neutrophils # Seg Neutrophils # Man Lymphocytes # (Manual) Monocytes # (Manual) Eosinophils # (Manual) Basophils # (Manual) PT INR APTT Heparin Anti-Xa Level POC ABG pH POC ABG pCO2 POC ABG pO2 Sodium Potassium Chloride Carbon Dioxide BUN Creatinine Glucose POC Glucose 44 L 112 H Calcium Phosphorus Magnesium AST Alkaline Phosphatase C-Reactive Protein Total Protein Albumin Lipase Vitamin B12 TSH Urine WBC (Auto) Urine Chloride Urine Total Protein Crossmatch 10/26/16 10/26/16 10/26/16 05:02 12:11 12:14 WBC RBC Hgb Hct MCV RDW Plt Count Lymph % (Auto) [place] % (Auto) [place] # Seg Neutrophils % Seg Neuts % (Manual) Lymphocytes % (Manual) Monocytes % (Manual) Nucleated RBC % Seg Neutrophils # Seg Neutrophils # Man Lymphocytes # (Manual) Monocytes # (Manual) Eosinophils # (Manual) Basophils # (Manual) PT INR APTT Heparin Anti-Xa Level POC ABG pH POC ABG pCO2 32.0 L POC ABG pO2 33 L Sodium Potassium 3.2 L D Chloride Carbon Dioxide 20 L BUN 24 H Creatinine Glucose 104 H POC Glucose 194 H Calcium 7.7 L Phosphorus Magnesium AST Alkaline Phosphatase C-Reactive Protein Total Protein Albumin Lipase Vitamin B12 TSH Urine WBC (Auto) Urine Chloride Urine Total Protein Crossmatch 10/26/16 10/26/16 10/27/16 15:28 17:23 00:04 WBC RBC Hgb Hct MCV RDW Plt Count Lymph % (Auto) [place] % (Auto) [place] # Seg Neutrophils % Seg Neuts % (Manual) Lymphocytes % (Manual) Monocytes % (Manual) Nucleated RBC % Seg Neutrophils # Seg Neutrophils # Man Lymphocytes # (Manual) Monocytes # (Manual) Eosinophils # (Manual) Basophils # (Manual) PT INR APTT Heparin Anti-Xa Level POC ABG pH POC ABG pCO2 33.7 L POC ABG pO2 Sodium Potassium Chloride Carbon Dioxide BUN Creatinine Glucose POC Glucose 181 H 230 H Calcium Phosphorus Magnesium AST Alkaline Phosphatase C-Reactive Protein Total Protein Albumin Lipase Vitamin B12 TSH Urine WBC (Auto) Urine Chloride Urine Total Protein Crossmatch 10/27/16 10/27/16 10/27/16 05:15 05:15 05:38 WBC 25.5 H RBC 3.07 L Hgb 9.4 L Hct 30.1 L MCV 98 H RDW 16.4 H Plt Count 527 H Lymph % (Auto) [place] % (Auto) [place] # Seg Neutrophils % Seg Neuts % (Manual) Lymphocytes % (Manual) Monocytes % (Manual) Nucleated RBC % Seg Neutrophils # Seg Neutrophils # Man Lymphocytes # (Manual) Monocytes # (Manual) Eosinophils # (Manual) Basophils # (Manual) PT INR APTT Heparin Anti-Xa Level POC ABG pH POC ABG pCO2 POC ABG pO2 Sodium Potassium Chloride Carbon Dioxide 19 L BUN 23 H Creatinine Glucose 160 H POC Glucose 168 H Calcium 8.0 L Phosphorus Magnesium AST Alkaline Phosphatase C-Reactive Protein Total Protein Albumin Lipase Vitamin B12 TSH Urine WBC (Auto) Urine Chloride Urine Total Protein Crossmatch 10/27/16 10/27/16 10/27/16 11:59 18:35 23:48 WBC RBC Hgb Hct MCV RDW Plt Count Lymph % (Auto) [place] % (Auto) [place] # Seg Neutrophils % Seg Neuts % (Manual) Lymphocytes % (Manual) Monocytes % (Manual) Nucleated RBC % Seg Neutrophils # Seg Neutrophils # Man Lymphocytes # (Manual) Monocytes # (Manual) Eosinophils # (Manual) Basophils # (Manual) PT INR APTT Heparin Anti-Xa Level POC ABG pH POC ABG pCO2 POC ABG pO2 Sodium Potassium Chloride Carbon Dioxide BUN Creatinine Glucose POC Glucose 197 H 318 H 316 H Calcium Phosphorus Magnesium AST Alkaline Phosphatase C-Reactive Protein Total Protein Albumin Lipase Vitamin B12 TSH Urine WBC (Auto) Urine Chloride Urine Total Protein Crossmatch 10/28/16 10/28/16 10/28/16 03:13 04:10 04:10 WBC 18.8 H RBC 2.64 L Hgb 8.1 L Hct 26.1 L MCV 99 H RDW 16.2 H Plt Count 544 H Lymph % (Auto) [place] % (Auto) [place] # Seg Neutrophils % Seg Neuts % (Manual) Lymphocytes % (Manual) Monocytes % (Manual) Nucleated RBC % Seg Neutrophils # Seg Neutrophils # Man Lymphocytes # (Manual) Monocytes # (Manual) Eosinophils # (Manual) Basophils # (Manual) PT INR APTT Heparin Anti-Xa Level POC ABG pH POC ABG pCO2 POC ABG pO2 Sodium Potassium Chloride Carbon Dioxide 21 L BUN 24 H Creatinine Glucose 302 H POC Glucose 304 H Calcium 7.7 L Phosphorus Magnesium AST Alkaline Phosphatase C-Reactive Protein Total Protein Albumin Lipase Vitamin B12 TSH Urine WBC (Auto) Urine Chloride Urine Total Protein Crossmatch 10/28/16 10/28/16 10/28/16 04:10 12:36 18:27 WBC RBC Hgb Hct MCV RDW Plt Count Lymph % (Auto) [place] % (Auto) [place] # Seg Neutrophils % Seg Neuts % (Manual) Lymphocytes % (Manual) Monocytes % (Manual) Nucleated RBC % Seg Neutrophils # Seg Neutrophils # Man Lymphocytes # (Manual) Monocytes # (Manual) Eosinophils # (Manual) Basophils # (Manual) PT INR APTT Heparin Anti-Xa Level 0.20 L POC ABG pH POC ABG pCO2 POC ABG pO2 Sodium Potassium Chloride Carbon Dioxide BUN Creatinine Glucose POC Glucose 205 H 339 H Calcium Phosphorus Magnesium AST Alkaline Phosphatase C-Reactive Protein Total Protein Albumin Lipase Vitamin B12 TSH Urine WBC (Auto) Urine Chloride Urine Total Protein Crossmatch 10/29/16 10/29/16 10/29/16 01:05 06:19 09:30 WBC 20.3 H RBC 2.80 L Hgb 8.5 L Hct 26.7 L MCV RDW 15.4 H Plt Count 571 H Lymph % (Auto) [place] % (Auto) [place] # Seg Neutrophils % Seg Neuts % (Manual) 75.0 H Lymphocytes % (Manual) 4.0 L Monocytes % (Manual) Nucleated RBC % Seg Neutrophils # Seg Neutrophils # Man 15.2 H Lymphocytes # (Manual) 0.8 L Monocytes # (Manual) Eosinophils # (Manual) Basophils # (Manual) PT INR APTT Heparin Anti-Xa Level POC ABG pH POC ABG pCO2 POC ABG pO2 Sodium Potassium Chloride Carbon Dioxide BUN Creatinine Glucose POC Glucose 275 H 179 H Calcium Phosphorus Magnesium AST Alkaline Phosphatase C-Reactive Protein Total Protein Albumin Lipase Vitamin B12 TSH Urine WBC (Auto) Urine Chloride Urine Total Protein Crossmatch 10/29/16 10/29/16 10/29/16 11:46 15:18 17:55 WBC RBC Hgb Hct MCV RDW Plt Count Lymph % (Auto) [place] % (Auto) [place] # Seg Neutrophils % Seg Neuts % (Manual) Lymphocytes % (Manual) Monocytes % (Manual) Nucleated RBC % Seg Neutrophils # Seg Neutrophils # Man Lymphocytes # (Manual) Monocytes # (Manual) Eosinophils # (Manual) Basophils # (Manual) PT INR APTT Heparin Anti-Xa Level 1.15 H POC ABG pH POC ABG pCO2 POC ABG pO2 Sodium Potassium Chloride Carbon Dioxide BUN Creatinine Glucose POC Glucose 122 H 255 H Calcium Phosphorus Magnesium AST Alkaline Phosphatase C-Reactive Protein Total Protein Albumin Lipase Vitamin B12 TSH Urine WBC (Auto) Urine Chloride Urine Total Protein Crossmatch 10/30/16 10/30/16 10/30/16 00:10 05:30 05:30 WBC 19.8 H RBC 2.51 L Hgb 7.7 L Hct 24.1 L MCV RDW 15.5 H Plt Count 534 H Lymph % (Auto) [place] % (Auto) [place] # Seg Neutrophils % Seg Neuts % (Manual) Lymphocytes % (Manual) Monocytes % (Manual) Nucleated RBC % Seg Neutrophils # Seg Neutrophils # Man Lymphocytes # (Manual) Monocytes # (Manual) Eosinophils # (Manual) Basophils # (Manual) PT INR APTT Heparin Anti-Xa Level POC ABG pH POC ABG pCO2 POC ABG pO2 Sodium Potassium Chloride Carbon Dioxide BUN Creatinine Glucose 211 H POC Glucose 202 H Calcium 7.4 L Phosphorus Magnesium AST Alkaline Phosphatase C-Reactive Protein Total Protein Albumin Lipase Vitamin B12 TSH Urine WBC (Auto) Urine Chloride Urine Total Protein Crossmatch 10/30/16 10/30/16 10/30/16 06:32 12:51 17:47 WBC RBC Hgb Hct MCV RDW Plt Count Lymph % (Auto) [place] % (Auto) [place] # Seg Neutrophils % Seg Neuts % (Manual) Lymphocytes % (Manual) Monocytes % (Manual) Nucleated RBC % Seg Neutrophils # Seg Neutrophils # Man Lymphocytes # (Manual) Monocytes # (Manual) Eosinophils # (Manual) Basophils # (Manual) PT INR APTT Heparin Anti-Xa Level POC ABG pH POC ABG pCO2 POC ABG pO2 Sodium Potassium Chloride Carbon Dioxide BUN Creatinine Glucose POC Glucose 207 H 218 H 169 H Calcium Phosphorus Magnesium AST Alkaline Phosphatase C-Reactive Protein Total Protein Albumin Lipase Vitamin B12 TSH Urine WBC (Auto) Urine Chloride Urine Total Protein Crossmatch 10/30/16 10/31/16 10/31/16 23:59 05:25 11:21 WBC RBC Hgb Hct MCV RDW Plt Count Lymph % (Auto) [place] % (Auto) [place] # Seg Neutrophils % Seg Neuts % (Manual) Lymphocytes % (Manual) Monocytes % (Manual) Nucleated RBC % Seg Neutrophils # Seg Neutrophils # Man Lymphocytes # (Manual) Monocytes # (Manual) Eosinophils # (Manual) Basophils # (Manual) PT INR APTT Heparin Anti-Xa Level POC ABG pH POC ABG pCO2 POC ABG pO2 Sodium Potassium Chloride Carbon Dioxide BUN Creatinine Glucose POC Glucose 138 H 127 H 132 H Calcium Phosphorus Magnesium AST Alkaline Phosphatase C-Reactive Protein Total Protein Albumin Lipase Vitamin B12 TSH Urine WBC (Auto) Urine Chloride Urine Total Protein Crossmatch 10/31/16 10/31/16 11/01/16 17:07 23:54 06:33 WBC 19.2 H RBC 2.51 L Hgb 7.9 L Hct 24.8 L MCV 99 H D RDW 16.1 H Plt Count 569 H Lymph % (Auto) [place] % (Auto) [place] # Seg Neutrophils % Seg Neuts % (Manual) Lymphocytes % (Manual) Monocytes % (Manual) Nucleated RBC % Seg Neutrophils # Seg Neutrophils # Man Lymphocytes # (Manual) Monocytes # (Manual) Eosinophils # (Manual) Basophils # (Manual) PT INR APTT Heparin Anti-Xa Level POC ABG pH POC ABG pCO2 POC ABG pO2 Sodium Potassium Chloride Carbon Dioxide BUN Creatinine Glucose POC Glucose 138 H 153 H Calcium Phosphorus Magnesium AST Alkaline Phosphatase C-Reactive Protein Total Protein Albumin Lipase Vitamin B12 TSH Urine WBC (Auto) Urine Chloride Urine Total Protein Crossmatch 11/01/16 11/02/16 11/02/16 06:33 00:05 04:15 WBC RBC Hgb Hct MCV RDW Plt Count Lymph % (Auto) [place] % (Auto) [place] # Seg Neutrophils % Seg Neuts % (Manual) Lymphocytes % (Manual) Monocytes % (Manual) Nucleated RBC % Seg Neutrophils # Seg Neutrophils # Man Lymphocytes # (Manual) Monocytes # (Manual) Eosinophils # (Manual) Basophils # (Manual) PT INR APTT Heparin Anti-Xa Level < 0.10 L POC ABG pH POC ABG pCO2 POC ABG pO2 Sodium Potassium 3.5 L 3.2 L Chloride Carbon Dioxide 21 L BUN 6 L Creatinine Glucose 137 H 135 H POC Glucose Calcium 7.7 L 7.5 L Phosphorus Magnesium AST Alkaline Phosphatase 148 H 132 H C-Reactive Protein Total Protein 6.2 L 6.2 L Albumin 2.0 L 1.8 L Lipase Vitamin B12 TSH Urine WBC (Auto) Urine Chloride Urine Total Protein Crossmatch 11/02/16 11/03/16 11/03/16 04:15 00:05 00:05 WBC 17.7 H RBC 2.43 L Hgb 7.6 L Hct 23.5 L MCV RDW 15.9 H Plt Count 502 H Lymph % (Auto) [place] % (Auto) [place] # Seg Neutrophils % Seg Neuts % (Manual) 84.0 H Lymphocytes % (Manual) 11.0 L Monocytes % (Manual) Nucleated RBC % 1.0 H Seg Neutrophils # Seg Neutrophils # Man 14.9 H Lymphocytes # (Manual) Monocytes # (Manual) Eosinophils # (Manual) Basophils # (Manual) PT INR APTT Heparin Anti-Xa Level POC ABG pH POC ABG pCO2 POC ABG pO2 Sodium Potassium Chloride Carbon Dioxide 20 L BUN 5 L Creatinine Glucose 139 H POC Glucose Calcium 6.7 L Phosphorus Magnesium 1.2 L AST Alkaline Phosphatase C-Reactive Protein Total Protein Albumin Lipase Vitamin B12 TSH Urine WBC (Auto) Urine Chloride Urine Total Protein Crossmatch 11/03/16 11/03/16 11/03/16 00:05 02:05 04:23 WBC 15.9 H 14.0 H RBC 1.93 L 2.38 L Hgb 5.9 L* 7.3 L Hct 18.9 L* 23.1 L MCV 98 H RDW 15.9 H 15.9 H Plt Count Lymph % (Auto) [place] % (Auto) [place] # Seg Neutrophils % Seg Neuts % (Manual) 85.0 H Lymphocytes % (Manual) 4.0 L Monocytes % (Manual) Nucleated RBC % Seg Neutrophils # Seg Neutrophils # Man 13.5 H Lymphocytes # (Manual) 0.6 L Monocytes # (Manual) Eosinophils # (Manual) Basophils # (Manual) PT INR APTT Heparin Anti-Xa Level POC ABG pH POC ABG pCO2 POC ABG pO2 Sodium Potassium Chloride Carbon Dioxide BUN 5 L Creatinine Glucose 127 H POC Glucose Calcium 7.2 L Phosphorus Magnesium AST Alkaline Phosphatase C-Reactive Protein Total Protein 5.8 L Albumin 1.5 L Lipase Vitamin B12 TSH Urine WBC (Auto) Urine Chloride Urine Total Protein Crossmatch 11/03/16 11/03/16 09:14 09:27 WBC RBC Hgb Hct MCV RDW Plt Count Lymph % (Auto) [place] % (Auto) [place] # Seg Neutrophils % Seg Neuts % (Manual) Lymphocytes % (Manual) Monocytes % (Manual) Nucleated RBC % Seg Neutrophils # Seg Neutrophils # Man Lymphocytes # (Manual) Monocytes # (Manual) Eosinophils # (Manual) Basophils # (Manual) PT INR APTT Heparin Anti-Xa Level 0.11 L POC ABG pH POC ABG pCO2 POC ABG pO2 Sodium Potassium Chloride Carbon Dioxide BUN 5 L Creatinine Glucose 111 H POC Glucose Calcium 6.7 L Phosphorus Magnesium AST Alkaline Phosphatase C-Reactive Protein Total Protein Albumin Lipase Vitamin B12 TSH Urine WBC (Auto) Urine Chloride Urine Total Protein Crossmatch Chest x-ray: report reviewed (Borderline cardiomegaly and mild pulmonary venous congestion.) Allied health notes reviewed: RT
--- NOTE | 2016-11-03 17:09 | Progress Note ---
Assessment and Plan s/p trache and PEG. Continue supportive care. No further surgical tx needed. Will sign off. Subjective Date of service: 11/03/16 Patient Reports: Positive: no new complaints, other (s/p trach and peg) Objective Vital Signs - 12hr 11/03/16 11/03/16 11/03/16 06:00 06:29 07:00 Temperature Pulse Rate 78 88 76 Pulse Rate [ Apical] Pulse Rate [ From Monitor] Respiratory 18 18 Rate Blood Pressure 144/73 129/61 129/61 O2 Sat by Pulse 100 100 Oximetry 11/03/16 11/03/16 11/03/16 08:00 08:55 09:00 Temperature 100.4 F H Pulse Rate 80 74 84 Pulse Rate [ 89 Apical] Pulse Rate [ 85 From Monitor] Respiratory 15 22 Rate Blood Pressure 139/68 139/68 133/64 O2 Sat by Pulse 100 100 99 Oximetry 11/03/16 11/03/16 11/03/16 09:04 10:00 11:00 Temperature Pulse Rate 84 97 H 92 H Pulse Rate [ Apical] Pulse Rate [ From Monitor] Respiratory 24 23 18 Rate Blood Pressure 133/64 145/70 127/71 O2 Sat by Pulse 96 100 100 Oximetry 11/03/16 11/03/16 11/03/16 12:00 12:33 14:05 Temperature 99.8 F H Pulse Rate 86 86 93 H Pulse Rate [ Apical] Pulse Rate [ From Monitor] Respiratory 34 H 30 H Rate Blood Pressure 118/74 118/74 137/75 O2 Sat by Pulse 100 100 Oximetry 11/03/16 11/03/16 14:09 14:52 Temperature Pulse Rate 93 H 93 H Pulse Rate [ Apical] Pulse Rate [ From Monitor] Respiratory Rate Blood Pressure 137/75 137/75 O2 Sat by Pulse 100 Oximetry - General physical appearance no distress - Neck trachea midline, other (trache in place) - Respiratory normal respiratory effort, other (on vent) - Abdomen soft, not tender, bowel sounds normal, other (PEG in place) - Labs 11/03/16 02:05 11/03/16 09:27 Diabetes panel 11/03/16 11/03/16 11/03/16 Range/Units 00:05 04:23 09:27 Sodium 139 141 139 (137-145) mmol/L Potassium 3.7 3.9 4.2 (3.6-5.0) mmol/L Chloride 104.3 104.9 102.5 (98-107) mmol/L Carbon Dioxide 20 L 22 22 (22-30) mmol/L BUN 5 L 5 L 5 L (7-17) mg/dL Creatinine 0.7 0.8 0.8 (0.7-1.2) mg/dL Glucose 139 H 127 H 111 H (65-100) mg/dL Calcium 6.7 L 7.2 L 6.7 L (8.4-10.2) mg/dL AST 9 (5-40) units/L ALT 11 (7-56) units/L Alkaline Phosphatase 112 (35-129) units/L Total Protein 5.8 L (6.3-8.2) g/dL Albumin 1.5 L (3.9-5) g/dL Calcium panel 11/03/16 11/03/16 11/03/16 Range/Units 00:05 04:23 09:27 Calcium 6.7 L 7.2 L 6.7 L (8.4-10.2) mg/dL Albumin 1.5 L (3.9-5) g/dL Pituitary panel 11/03/16 11/03/16 11/03/16 Range/Units 00:05 04:23 09:27 Sodium 139 141 139 (137-145) mmol/L Potassium 3.7 3.9 4.2 (3.6-5.0) mmol/L Chloride 104.3 104.9 102.5 (98-107) mmol/L Carbon Dioxide 20 L 22 22 (22-30) mmol/L BUN 5 L 5 L 5 L (7-17) mg/dL Creatinine 0.7 0.8 0.8 (0.7-1.2) mg/dL Glucose 139 H 127 H 111 H (65-100) mg/dL Calcium 6.7 L 7.2 L 6.7 L (8.4-10.2) mg/dL Adrenal panel 11/03/16 11/03/16 11/03/16 Range/Units 00:05 04:23 09:27 Sodium 139 141 139 (137-145) mmol/L Potassium 3.7 3.9 4.2 (3.6-5.0) mmol/L Chloride 104.3 104.9 102.5 (98-107) mmol/L Carbon Dioxide 20 L 22 22 (22-30) mmol/L BUN 5 L 5 L 5 L (7-17) mg/dL Creatinine 0.7 0.8 0.8 (0.7-1.2) mg/dL Glucose 139 H 127 H 111 H (65-100) mg/dL Calcium 6.7 L 7.2 L 6.7 L (8.4-10.2) mg/dL Total Bilirubin 0.3 (0.1-1.2) mg/dL AST 9 (5-40) units/L ALT 11 (7-56) units/L Alkaline Phosphatase 112 (35-129) units/L Total Protein 5.8 L (6.3-8.2) g/dL Albumin 1.5 L (3.9-5) g/dL
--- NOTE | 2016-11-03 17:35 | Progress Note ---
Assessment and Plan 1. Acute respiratory failure with hypercapnia: Vent supported. Trach and PEG place . Continue with bronchodilators and wean as tolerated. 2. Diabetes: Sliding scale insulin 3. Sepsis- Leukocytosis Improving Suspected due to UTI, urine has only grown Paula, sputum cultures grew group B strep, continue broad-spectrum antibiotics, infectious disease input appreciated 4. 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 Family members still being awaited to decided between AKA or BKA as limb is not salvagable 5. Hypokalemia: Supplement potassium further 6. Toxic metabolic encephalopathy- improving. 7. Tachycardia- continue BB will add cardizem, if no improvement will add cardiology consultation 8. Anemia: Multifactorial including sepsis. Trasfuse 1 units. Trend Subjective Date of service: 11/03/16 Principal diagnosis: respiratory failure on mechanical ventilatory support, DKA Interval history: Remains intubated. Had Trach and PEG yesterday Objective - Constitutional Vitals: Vital Signs - 12hr 11/03/16 11/03/16 11/03/16 06:00 06:29 07:00 Temperature Pulse Rate 78 88 76 Pulse Rate [ Apical] Pulse Rate [ From Monitor] Respiratory 18 18 Rate Blood Pressure 144/73 129/61 129/61 O2 Sat by Pulse 100 100 Oximetry 11/03/16 11/03/16 11/03/16 08:00 08:55 09:00 Temperature 100.4 F H Pulse Rate 80 74 84 Pulse Rate [ 89 Apical] Pulse Rate [ 85 From Monitor] Respiratory 15 22 Rate Blood Pressure 139/68 139/68 133/64 O2 Sat by Pulse 100 100 99 Oximetry 11/03/16 11/03/16 11/03/16 09:04 10:00 11:00 Temperature Pulse Rate 84 97 H 92 H Pulse Rate [ Apical] Pulse Rate [ From Monitor] Respiratory 24 23 18 Rate Blood Pressure 133/64 145/70 127/71 O2 Sat by Pulse 96 100 100 Oximetry 11/03/16 11/03/16 11/03/16 12:00 12:33 13:00 Temperature 99.8 F H Pulse Rate 86 86 91 H Pulse Rate [ Apical] Pulse Rate [ From Monitor] Respiratory 34 H 30 H 19 Rate Blood Pressure 118/74 118/74 127/69 O2 Sat by Pulse 100 100 100 Oximetry 11/03/16 11/03/16 11/03/16 14:00 14:05 14:09 Temperature Pulse Rate 92 H 93 H 93 H Pulse Rate [ Apical] Pulse Rate [ From Monitor] Respiratory 18 Rate Blood Pressure 137/75 137/75 137/75 O2 Sat by Pulse Oximetry 11/03/16 11/03/16 11/03/16 14:52 15:00 16:00 Temperature 98.6 F Pulse Rate 93 H 87 87 Pulse Rate [ Apical] Pulse Rate [ From Monitor] Respiratory 20 18 Rate Blood Pressure 137/75 134/63 134/64 O2 Sat by Pulse 100 100 99 Oximetry 11/03/16 17:00 Temperature Pulse Rate 87 Pulse Rate [ Apical] Pulse Rate [ From Monitor] Respiratory 18 Rate Blood Pressure 134/64 O2 Sat by Pulse 100 Oximetry General appearance: Present: no acute distress, obese, other (still vent supported congestive) - EENT Eyes: PERRL, EOM intact ENT: hearing intact, clear oral mucosa Ears: bilateral: normal - Neck Neck: supple, normal ROM - Respiratory Respiratory effort: normal Respiratory: bilateral: diminished - Cardiovascular Rhythm: regular Heart Sounds: Present: S1 & S2. Absent: gallop, rub Extremities: pulses intact, No edema, normal color, Full ROM - Gastrointestinal General gastrointestinal: Present: soft, non-tender, non-distended, normal bowel sounds, other (PEG tube in place) - Genitourinary Female genitourinary: normal - Integumentary Integumentary: clear, warm, dry - Musculoskeletal Musculoskeletal: 1, strength equal bilaterally - Neurologic Neurologic: moves all extremities - Psychiatric Psychiatric: memory intact, appropriate mood/affect, intact judgment & insight - Labs CBC & Chem 7: 11/03/16 02:05 11/03/16 09:27 Labs: Abnormal lab results 11/02/16 11/03/16 11/03/16 Range/Units 00:05 00:05 00:05 WBC (4.5-11.0) K/mm3 RBC (3.65-5.03) M/mm3 Hgb (10.1-14.3) gm/dl Hct (30.3-42.9) % MCV (79-97) fl RDW (13.2-15.2) % Seg Neuts % (Manual) (40.0-70.0) % Lymphocytes % (Manual) (13.4-35.0) % Seg Neutrophils # Man (1.8-7.7) K/mm3 Lymphocytes # (Manual) (1.2-5.4) K/mm3 Heparin Anti-Xa Level < 0.10 L (0.3-0.7) U.I./ml Carbon Dioxide 20 L (22-30) mmol/L BUN 5 L (7-17) mg/dL Glucose 139 H (65-100) mg/dL Calcium 6.7 L (8.4-10.2) mg/dL Magnesium 1.2 L (1.7-2.3) mg/dL Total Protein (6.3-8.2) g/dL Albumin (3.9-5) g/dL 11/03/16 11/03/16 11/03/16 Range/Units 00:05 02:05 04:23 WBC 15.9 H 14.0 H (4.5-11.0) K/mm3 RBC 1.93 L 2.38 L (3.65-5.03) M/mm3 Hgb 5.9 L* 7.3 L (10.1-14.3) gm/dl Hct 18.9 L* 23.1 L (30.3-42.9) % MCV 98 H (79-97) fl RDW 15.9 H 15.9 H (13.2-15.2) % Seg Neuts % (Manual) 85.0 H (40.0-70.0) % Lymphocytes % (Manual) 4.0 L (13.4-35.0) % Seg Neutrophils # Man 13.5 H (1.8-7.7) K/mm3 Lymphocytes # (Manual) 0.6 L (1.2-5.4) K/mm3 Heparin Anti-Xa Level (0.3-0.7) U.I./ml Carbon Dioxide (22-30) mmol/L BUN 5 L (7-17) mg/dL Glucose 127 H (65-100) mg/dL Calcium 7.2 L (8.4-10.2) mg/dL Magnesium (1.7-2.3) mg/dL Total Protein 5.8 L (6.3-8.2) g/dL Albumin 1.5 L (3.9-5) g/dL 11/03/16 11/03/16 Range/Units 09:14 09:27 WBC (4.5-11.0) K/mm3 RBC (3.65-5.03) M/mm3 Hgb (10.1-14.3) gm/dl Hct (30.3-42.9) % MCV (79-97) fl RDW (13.2-15.2) % Seg Neuts % (Manual) (40.0-70.0) % Lymphocytes % (Manual) (13.4-35.0) % Seg Neutrophils # Man (1.8-7.7) K/mm3 Lymphocytes # (Manual) (1.2-5.4) K/mm3 Heparin Anti-Xa Level 0.11 L (0.3-0.7) U.I./ml Carbon Dioxide (22-30) mmol/L BUN 5 L (7-17) mg/dL Glucose 111 H (65-100) mg/dL Calcium 6.7 L (8.4-10.2) mg/dL Magnesium (1.7-2.3) mg/dL Total Protein (6.3-8.2) g/dL Albumin (3.9-5) g/dL
[2016-11-03] MEDS ORDERED: NACL 0.9% 500 ML 500 ML IV NR (17:36)
--- NOTE | 2016-11-03 19:20 | Progress Note ---
Subjective Date of service: 11/03/16 Principal diagnosis: respiratory failure on mechanical ventilatory support, DKA Interval history: AWAKE. FEVER. Vital signs - Temp 100.4 CHEST - GOOD AIR ENTRY CVS - S1S2 ABD - BS_ LABS See lab section. ASSESSMENT 1. Sepsis 2. dka 3. resp failure 4. htn 5. clostridium difficile colitis 6. bilateral pneumonia 6. RIGHT LEG GANGRENE. RECOMMENDATION 1. cbc/bmp in am 2. Fever likely related to right foot gangrene. Evaluation for either a bka or aka in progress with involvement of family who wants to think over it over the weekend. 3. continue current care. Objective - Constitutional Vitals: Vital Signs Temp Pulse Resp BP Pulse Ox 98.6 F 97 H 21 142/74 99 11/03/16 16:00 11/03/16 19:00 11/03/16 19:00 11/03/16 19:00 11/03/16 19:00 Temperature -Last 24 Hours Temperature 98.6 F Temperature 99.8 F Temperature 100.4 F Temperature 100.0 F Temperature 99.9 F Temperature 99.8 F Temperature 99.7 F - Labs CBC & Chem 7: 11/03/16 02:05 11/03/16 09:27 Labs: Abnormal lab results 11/02/16 11/03/16 11/03/16 Range/Units 00:05 00:05 00:05 WBC (4.5-11.0) K/mm3 RBC (3.65-5.03) M/mm3 Hgb (10.1-14.3) gm/dl Hct (30.3-42.9) % MCV (79-97) fl RDW (13.2-15.2) % Seg Neuts % (Manual) (40.0-70.0) % Lymphocytes % (Manual) (13.4-35.0) % Seg Neutrophils # Man (1.8-7.7) K/mm3 Lymphocytes # (Manual) (1.2-5.4) K/mm3 Heparin Anti-Xa Level < 0.10 L (0.3-0.7) U.I./ml Carbon Dioxide 20 L (22-30) mmol/L BUN 5 L (7-17) mg/dL Glucose 139 H (65-100) mg/dL Calcium 6.7 L (8.4-10.2) mg/dL Magnesium 1.2 L (1.7-2.3) mg/dL Total Protein (6.3-8.2) g/dL Albumin (3.9-5) g/dL 11/03/16 11/03/16 11/03/16 Range/Units 00:05 02:05 04:23 WBC 15.9 H 14.0 H (4.5-11.0) K/mm3 RBC 1.93 L 2.38 L (3.65-5.03) M/mm3 Hgb 5.9 L* 7.3 L (10.1-14.3) gm/dl Hct 18.9 L* 23.1 L (30.3-42.9) % MCV 98 H (79-97) fl RDW 15.9 H 15.9 H (13.2-15.2) % Seg Neuts % (Manual) 85.0 H (40.0-70.0) % Lymphocytes % (Manual) 4.0 L (13.4-35.0) % Seg Neutrophils # Man 13.5 H (1.8-7.7) K/mm3 Lymphocytes # (Manual) 0.6 L (1.2-5.4) K/mm3 Heparin Anti-Xa Level (0.3-0.7) U.I./ml Carbon Dioxide (22-30) mmol/L BUN 5 L (7-17) mg/dL Glucose 127 H (65-100) mg/dL Calcium 7.2 L (8.4-10.2) mg/dL Magnesium (1.7-2.3) mg/dL Total Protein 5.8 L (6.3-8.2) g/dL Albumin 1.5 L (3.9-5) g/dL 11/03/16 11/03/16 Range/Units 09:14 09:27 WBC (4.5-11.0) K/mm3 RBC (3.65-5.03) M/mm3 Hgb (10.1-14.3) gm/dl Hct (30.3-42.9) % MCV (79-97) fl RDW (13.2-15.2) % Seg Neuts % (Manual) (40.0-70.0) % Lymphocytes % (Manual) (13.4-35.0) % Seg Neutrophils # Man (1.8-7.7) K/mm3 Lymphocytes # (Manual) (1.2-5.4) K/mm3 Heparin Anti-Xa Level 0.11 L (0.3-0.7) U.I./ml Carbon Dioxide (22-30) mmol/L BUN 5 L (7-17) mg/dL Glucose 111 H (65-100) mg/dL Calcium 6.7 L (8.4-10.2) mg/dL Magnesium (1.7-2.3) mg/dL Total Protein (6.3-8.2) g/dL Albumin (3.9-5) g/dL
[2016-11-03] MEDS: LEVAQUIN 750MG/150ML 750 MG/150 ML BAG IV SCH (21:42)
[2016-11-04] MEDS: TYLENOL FEEDTUBE PRN ×3 (00:05→23:38)
[2016-11-04] MEDS: CLEOCIN 600 MG/50 mL 600 MG/50 ML BAG IV SCH ×3 (00:43→13:56)
[2016-11-04] MEDS: NACL 0.9% 1000 ML 1,000 ML IV SCH ×2 (00:44→23:29)
[2016-11-04 03:01] LABS: Alanine Aminotransferase 10 units/L (7-56); Albumin 1.7 g/dL (3.9-5); Albumin/Globulin Ratio 0.4 %; Alkaline Phosphatase 106 units/L (35-129); Anion Gap 17 mmol/L; BUN/Creatinine Ratio 7.14; Bilirubin,Total 0.2 mg/dL (0.1-1.2); Blood Urea Nitrogen 5 mg/dL (7-17); Calcium 6.8 mg/dL (8.4-10.2); Carbon Dioxide 21 mmol/L (22-30); Chloride 102.8 mmol/L (98-107); Glucose 112 mg/dL (65-100); Hematocrit 23.1 % (30.3-42.9); Hemoglobin 7.4 gm/dl (10.1-14.3); Mean Corpuscular HGB Conc 32 % (30-34); Mean Corpuscular Hemoglobin 31 pg (28-32); Mean Corpuscular Volume 97 fl (79-97); Platelet Count 390 K/mm3 (140-440); Potassium 3.6 mmol/L (3.6-5.0); Red Blood Count 2.39 M/mm3 (3.65-5.03); Red Cell Distribution Width 15.9 % (13.2-15.2); Sodium 137 mmol/L (137-145); Total Protein 5.7 g/dL (6.3-8.2); White Blood Count 11.8 K/mm3 (4.5-11.0)
[2016-11-04 04:48] LABS: Anisocytosis 1+; Basophils % (Manual) 0 % (0.0-1.8); Blastocytes % (Manual) 0 %; Diff Status Complete; Macrocytosis Few
[2016-11-04] MEDS: HEPARIN/ 0.45% NACL-25,000 UNIT/500 ML 25,000 UNITS/500 ML BAG IV SCH (07:56)
[2016-11-04] MEDS ORDERED: HEPARIN 10,000 UNITS/10 ML IV ONE (08:00)
[2016-11-04] MEDS ORDERED: SODIUM BICARBONATE FEEDTUBE PRN (08:10)
[2016-11-04] MEDS ORDERED: SIMPLE SYRUP FEEDTUBE PRN (08:10)
--- NOTE | 2016-11-04 08:58 | Progress Note ---
Assessment and Plan Patient S/P tracheostomy Patient iresting on assist control ventilation. Patient is on assist control rate 16, tidal volume 450, FIO2 25%,PEEP 5 and O2 satuaration 100%. Try again today spontaneous breathing trial - Patient Problems (1) Acute respiratory failure with hypercapnia Current Visit: Yes Status: Acute Plan to address problem: Patient presently on assist control. Try again spontaneous breathing trial today. May try trach collar tomorrow. Albuterol/atrovent aerosol treatments q 6 hours. Patient on I.V Heparine. Continue famotidine. respiratory suctioning Trach care. (2) LUCY (acute kidney injury) Current Visit: Yes Status: Acute Plan to address problem: Management as per primary care. (3) DKA (diabetic ketoacidoses) Current Visit: Yes Status: Acute Qualifiers: Diabetes mellitus type: D Diabetes mellitus complication detail: D Plan to address problem: Patient is on insulin coverage. and I/V fluids. Management as per primary care. (4) Altered mental status Current Visit: Yes Status: Acute Qualifiers: Altered mental status type: A Coma depth: C Coma timing: C Plan to address problem: Management as per primary care. (5) Sepsis Current Visit: No Status: Acute Qualifiers: Sepsis type: S Plan to address problem: Patient is on Levaquine and Clindamycin (6) Obesity (BMI 30-39.9) Current Visit: No Status: Chronic Qualifiers: Obesity type: O Obesity severity: O Plan to address problem: Weight reduction diet. (7) Ischemia of right lower extremity Current Visit: Yes Status: Acute Plan to address problem: Management as per vascular surgery. Subjective Date of service: 11/04/16 Principal diagnosis: respiratory failure on mechanical ventilatory support, DKA Interval history: Patient S/P tracheostomy Patient iresting on assist control ventilation. Patient is on assist control rate 16, tidal volume 450, FIO2 25%,PEEP 5 and O2 satuaration 100%. Try again today spontaneous breathing trial Objective Vital Signs - 12hr 11/03/16 11/03/16 11/03/16 21:00 21:34 21:42 Temperature Pulse Rate 93 H 87 94 H Pulse Rate [ 91 H Apical] Pulse Rate [ 83 From Monitor] Pulse Rate [ 84 Left Radial] Pulse Rate [ 92 H Right Radial] Respiratory 18 Rate Blood Pressure 133/64 133/64 133/64 O2 Sat by Pulse 99 100 Oximetry O2 Sat by Pulse Oximetry [ Assessment] 11/03/16 11/03/16 11/04/16 22:00 23:00 00:00 Temperature 100.9 F H Pulse Rate 88 89 89 Pulse Rate [ Apical] Pulse Rate [ From Monitor] Pulse Rate [ Left Radial] Pulse Rate [ Right Radial] Respiratory 20 18 12 Rate Blood Pressure 121/63 126/58 122/58 O2 Sat by Pulse 100 98 100 Oximetry O2 Sat by Pulse Oximetry [ Assessment] 11/04/16 11/04/16 11/04/16 01:00 02:00 03:00 Temperature Pulse Rate 85 79 78 Pulse Rate [ Apical] Pulse Rate [ From Monitor] Pulse Rate [ Left Radial] Pulse Rate [ Right Radial] Respiratory 19 18 18 Rate Blood Pressure 122/60 104/50 110/54 O2 Sat by Pulse 100 98 Oximetry O2 Sat by Pulse Oximetry [ Assessment] 11/04/16 11/04/16 11/04/16 04:00 05:00 05:47 Temperature 100.6 F H Pulse Rate 72 70 86 Pulse Rate [ Apical] Pulse Rate [ From Monitor] Pulse Rate [ Left Radial] Pulse Rate [ Right Radial] Respiratory 18 18 Rate Blood Pressure 114/55 114/57 114/57 O2 Sat by Pulse 99 100 100 Oximetry O2 Sat by Pulse Oximetry [ Assessment] 11/04/16 11/04/16 11/04/16 06:00 07:00 08:00 Temperature Pulse Rate 74 70 84 Pulse Rate [ Apical] Pulse Rate [ From Monitor] Pulse Rate [ Left Radial] Pulse Rate [ Right Radial] Respiratory 16 16 Rate Blood Pressure 108/52 107/53 106/53 O2 Sat by Pulse 98 100 99 Oximetry O2 Sat by Pulse Oximetry [ Assessment] 11/04/16 08:05 Temperature Pulse Rate Pulse Rate [ Apical] Pulse Rate [ From Monitor] Pulse Rate [ Left Radial] Pulse Rate [ Right Radial] Respiratory Rate Blood Pressure O2 Sat by Pulse Oximetry O2 Sat by Pulse 99 Oximetry [ Assessment] Constitutional: no acute distress, asleep, other (? delirium / dementia element) Eyes: non-icteric ENT: oropharynx moist Neck: supple, no lymphadenopathy Effort: mildly labored Ascultation: Bilateral: diminished breath sounds, rales (bases) Cardiovascular: regular rate and rhythm, other (tachycardia) Gastrointestinal: normoactive bowel sounds, soft, non-tender, non-distended Integumentary: normal Extremities: no cyanosis, no edema, no ischemia or petechiae, other (cold right foot with digital ischemia) Neurologic: non-focal exam (grossly), unable to assess Psychiatric: other (sedated) CBC and BMP: 11/04/16 02:15 11/04/16 02:15 ABG, PT/INR, D-dimer: ABG POC ABG pH 7.398 (7.35-7.45) 10/26/16 15:28 POC ABG pCO2 33.7 (35-45) L 10/26/16 15:28 POC ABG pO2 99 (80-105) 10/26/16 15:28 POC ABG HCO3 20.8 10/26/16 15:28 POC ABG Total CO2 22 10/26/16 15:28 POC ABG O2 Sat 98 10/26/16 15:28 PT/INR, D-dimer PT 16.4 Sec. (12.2-14.9) H 10/17/16 16:07 INR 1.33 (0.87-1.13) H 10/17/16 16:07 Abnormal lab findings: Abnormal Labs 10/13/16 10/13/16 10/13/16 06:38 06:38 07:23 WBC RBC Hgb Hct MCV RDW Plt Count Lymph % (Auto) [place] % (Auto) [place] # Seg Neutrophils % Seg Neuts % (Manual) Lymphocytes % (Manual) Monocytes % (Manual) Nucleated RBC % Seg Neutrophils # Seg Neutrophils # Man Lymphocytes # (Manual) Monocytes # (Manual) Eosinophils # (Manual) Basophils # (Manual) PT INR APTT Heparin Anti-Xa Level POC ABG pH POC ABG pCO2 POC ABG pO2 Sodium Potassium 6.2 H* Chloride Carbon Dioxide 8 L* BUN 85 H Creatinine 2.8 H Glucose 602 H* POC Glucose 495 H Calcium 7.9 L Phosphorus 6.9 H D Magnesium 3.0 H AST Alkaline Phosphatase C-Reactive Protein Total Protein Albumin Lipase Vitamin B12 TSH Urine WBC (Auto) Urine Chloride Urine Total Protein Crossmatch 10/13/16 10/13/16 10/13/16 08:49 08:55 10:12 WBC RBC Hgb Hct MCV RDW Plt Count Lymph % (Auto) [place] % (Auto) [place] # Seg Neutrophils % Seg Neuts % (Manual) Lymphocytes % (Manual) Monocytes % (Manual) Nucleated RBC % Seg Neutrophils # Seg Neutrophils # Man Lymphocytes # (Manual) Monocytes # (Manual) Eosinophils # (Manual) Basophils # (Manual) PT INR APTT Heparin Anti-Xa Level POC ABG pH POC ABG pCO2 POC ABG pO2 Sodium Potassium 5.6 H Chloride Carbon Dioxide 11 L BUN 77 H Creatinine 2.7 H Glucose 457 H POC Glucose > 500 H 424 H Calcium 8.0 L Phosphorus Magnesium AST Alkaline Phosphatase C-Reactive Protein Total Protein Albumin Lipase Vitamin B12 TSH Urine WBC (Auto) Urine Chloride Urine Total Protein Crossmatch 10/13/16 10/13/16 10/13/16 10:44 11:22 12:20 WBC RBC Hgb Hct MCV RDW Plt Count Lymph % (Auto) [place] % (Auto) [place] # Seg Neutrophils % Seg Neuts % (Manual) Lymphocytes % (Manual) Monocytes % (Manual) Nucleated RBC % Seg Neutrophils # Seg Neutrophils # Man Lymphocytes # (Manual) Monocytes # (Manual) Eosinophils # (Manual) Basophils # (Manual) PT INR APTT Heparin Anti-Xa Level POC ABG pH POC ABG pCO2 POC ABG pO2 Sodium Potassium 5.4 H Chloride Carbon Dioxide 14 L BUN 72 H Creatinine 2.6 H Glucose 383 H POC Glucose 391 H 313 H Calcium 8.2 L Phosphorus Magnesium AST Alkaline Phosphatase C-Reactive Protein Total Protein Albumin Lipase Vitamin B12 TSH Urine WBC (Auto) Urine Chloride Urine Total Protein Crossmatch 10/13/16 10/13/16 10/13/16 13:32 14:44 15:57 WBC RBC Hgb Hct MCV RDW Plt Count Lymph % (Auto) [place] % (Auto) [place] # Seg Neutrophils % Seg Neuts % (Manual) Lymphocytes % (Manual) Monocytes % (Manual) Nucleated RBC % Seg Neutrophils # Seg Neutrophils # Man Lymphocytes # (Manual) Monocytes # (Manual) Eosinophils # (Manual) Basophils # (Manual) PT INR APTT Heparin Anti-Xa Level POC ABG pH POC ABG pCO2 POC ABG pO2 Sodium Potassium Chloride Carbon Dioxide BUN Creatinine Glucose POC Glucose 296 H 210 H 190 H Calcium Phosphorus Magnesium AST Alkaline Phosphatase C-Reactive Protein Total Protein Albumin Lipase Vitamin B12 TSH Urine WBC (Auto) Urine Chloride Urine Total Protein Crossmatch 10/13/16 10/13/16 10/13/16 16:14 16:14 17:17 WBC RBC Hgb Hct MCV RDW Plt Count Lymph % (Auto) [place] % (Auto) [place] # Seg Neutrophils % Seg Neuts % (Manual) Lymphocytes % (Manual) Monocytes % (Manual) Nucleated RBC % Seg Neutrophils # Seg Neutrophils # Man Lymphocytes # (Manual) Monocytes # (Manual) Eosinophils # (Manual) Basophils # (Manual) PT INR APTT Heparin Anti-Xa Level POC ABG pH POC ABG pCO2 POC ABG pO2 Sodium Potassium Chloride Carbon Dioxide 17 L BUN 58 H Creatinine 1.8 H Glucose 172 H POC Glucose 193 H Calcium 7.7 L Phosphorus Magnesium AST Alkaline Phosphatase C-Reactive Protein 10.50 H Total Protein Albumin Lipase Vitamin B12 TSH Urine WBC (Auto) Urine Chloride Urine Total Protein Crossmatch 10/13/16 10/13/16 10/13/16 17:55 18:32 19:41 WBC RBC Hgb Hct MCV RDW Plt Count Lymph % (Auto) [place] % (Auto) [place] # Seg Neutrophils % Seg Neuts % (Manual) Lymphocytes % (Manual) Monocytes % (Manual) Nucleated RBC % Seg Neutrophils # Seg Neutrophils # Man Lymphocytes # (Manual) Monocytes # (Manual) Eosinophils # (Manual) Basophils # (Manual) PT INR APTT Heparin Anti-Xa Level POC ABG pH POC ABG pCO2 30.6 L POC ABG pO2 218 H Sodium Potassium Chloride Carbon Dioxide BUN Creatinine Glucose POC Glucose 192 H 177 H Calcium Phosphorus Magnesium AST Alkaline Phosphatase C-Reactive Protein Total Protein Albumin Lipase Vitamin B12 TSH Urine WBC (Auto) Urine Chloride Urine Total Protein Crossmatch 10/13/16 10/13/16 10/13/16 20:54 22:07 23:13 WBC RBC Hgb Hct MCV RDW Plt Count Lymph % (Auto) [place] % (Auto) [place] # Seg Neutrophils % Seg Neuts % (Manual) Lymphocytes % (Manual) Monocytes % (Manual) Nucleated RBC % Seg Neutrophils # Seg Neutrophils # Man Lymphocytes # (Manual) Monocytes # (Manual) Eosinophils # (Manual) Basophils # (Manual) PT INR APTT Heparin Anti-Xa Level POC ABG pH POC ABG pCO2 POC ABG pO2 Sodium Potassium Chloride Carbon Dioxide BUN Creatinine Glucose POC Glucose 178 H 160 H 168 H Calcium Phosphorus Magnesium AST Alkaline Phosphatase C-Reactive Protein Total Protein Albumin Lipase Vitamin B12 TSH Urine WBC (Auto) Urine Chloride Urine Total Protein Crossmatch 10/13/16 10/13/16 10/14/16 23:25 Unknown 00:21 WBC RBC Hgb Hct MCV RDW Plt Count Lymph % (Auto) [place] % (Auto) [place] # Seg Neutrophils % Seg Neuts % (Manual) Lymphocytes % (Manual) Monocytes % (Manual) Nucleated RBC % Seg Neutrophils # Seg Neutrophils # Man Lymphocytes # (Manual) Monocytes # (Manual) Eosinophils # (Manual) Basophils # (Manual) PT INR APTT Heparin Anti-Xa Level POC ABG pH POC ABG pCO2 POC ABG pO2 Sodium 148 H Potassium Chloride 114.6 H Carbon Dioxide 17 L BUN 56 H Creatinine 1.6 H Glucose 151 H POC Glucose 171 H Calcium 7.8 L Phosphorus Magnesium AST Alkaline Phosphatase C-Reactive Protein Total Protein Albumin Lipase Vitamin B12 TSH Urine WBC (Auto) Urine Chloride 10.0 L Urine Total Protein < 4 L Crossmatch 10/14/16 10/14/16 10/14/16 01:22 02:29 03:30 WBC RBC Hgb Hct MCV RDW Plt Count Lymph % (Auto) [place] % (Auto) [place] # Seg Neutrophils % Seg Neuts % (Manual) Lymphocytes % (Manual) Monocytes % (Manual) Nucleated RBC % Seg Neutrophils # Seg Neutrophils # Man Lymphocytes # (Manual) Monocytes # (Manual) Eosinophils # (Manual) Basophils # (Manual) PT INR APTT Heparin Anti-Xa Level POC ABG pH POC ABG pCO2 POC ABG pO2 Sodium Potassium Chloride Carbon Dioxide BUN Creatinine Glucose POC Glucose 144 H 136 H 143 H Calcium Phosphorus Magnesium AST Alkaline Phosphatase C-Reactive Protein Total Protein Albumin Lipase Vitamin B12 TSH Urine WBC (Auto) Urine Chloride Urine Total Protein Crossmatch 10/14/16 10/14/16 10/14/16 04:28 05:16 05:44 WBC RBC Hgb Hct MCV RDW Plt Count Lymph % (Auto) [place] % (Auto) [place] # Seg Neutrophils % Seg Neuts % (Manual) Lymphocytes % (Manual) Monocytes % (Manual) Nucleated RBC % Seg Neutrophils # Seg Neutrophils # Man Lymphocytes # (Manual) Monocytes # (Manual) Eosinophils # (Manual) Basophils # (Manual) PT INR APTT Heparin Anti-Xa Level POC ABG pH POC ABG pCO2 28.2 L POC ABG pO2 125 H Sodium Potassium Chloride Carbon Dioxide BUN Creatinine Glucose POC Glucose 133 H 160 H Calcium Phosphorus Magnesium AST Alkaline Phosphatase C-Reactive Protein Total Protein Albumin Lipase Vitamin B12 TSH Urine WBC (Auto) Urine Chloride Urine Total Protein Crossmatch 10/14/16 10/14/16 10/14/16 06:12 06:45 07:03 WBC RBC Hgb Hct MCV RDW Plt Count Lymph % (Auto) [place] % (Auto) [place] # Seg Neutrophils % Seg Neuts % (Manual) Lymphocytes % (Manual) Monocytes % (Manual) Nucleated RBC % Seg Neutrophils # Seg Neutrophils # Man Lymphocytes # (Manual) Monocytes # (Manual) Eosinophils # (Manual) Basophils # (Manual) PT INR APTT Heparin Anti-Xa Level POC ABG pH POC ABG pCO2 POC ABG pO2 Sodium 149 H Potassium Chloride 115.4 H Carbon Dioxide 17 L BUN 45 H Creatinine 1.5 H Glucose 139 H POC Glucose 149 H Calcium 7.4 L Phosphorus 1.0 L D Magnesium AST Alkaline Phosphatase C-Reactive Protein Total Protein Albumin Lipase Vitamin B12 TSH Urine WBC (Auto) Urine Chloride Urine Total Protein Crossmatch 10/14/16 10/14/16 10/14/16 07:03 08:02 09:16 WBC RBC Hgb Hct MCV RDW Plt Count Lymph % (Auto) [place] % (Auto) [place] # Seg Neutrophils % Seg Neuts % (Manual) Lymphocytes % (Manual) Monocytes % (Manual) Nucleated RBC % Seg Neutrophils # Seg Neutrophils # Man Lymphocytes # (Manual) Monocytes # (Manual) Eosinophils # (Manual) Basophils # (Manual) PT INR APTT Heparin Anti-Xa Level POC ABG pH POC ABG pCO2 POC ABG pO2 Sodium Potassium Chloride Carbon Dioxide BUN Creatinine Glucose POC Glucose 156 H 158 H Calcium Phosphorus Magnesium AST Alkaline Phosphatase C-Reactive Protein Total Protein Albumin Lipase 738 H Vitamin B12 TSH Urine WBC (Auto) Urine Chloride Urine Total Protein Crossmatch 10/14/16 10/14/16 10/14/16 10:26 11:03 11:57 WBC RBC Hgb Hct MCV RDW Plt Count Lymph % (Auto) [place] % (Auto) [place] # Seg Neutrophils % Seg Neuts % (Manual) Lymphocytes % (Manual) Monocytes % (Manual) Nucleated RBC % Seg Neutrophils # Seg Neutrophils # Man Lymphocytes # (Manual) Monocytes # (Manual) Eosinophils # (Manual) Basophils # (Manual) PT INR APTT Heparin Anti-Xa Level POC ABG pH 7.198 L POC ABG pCO2 47.5 H POC ABG pO2 Sodium Potassium Chloride Carbon Dioxide BUN Creatinine Glucose POC Glucose 174 H 189 H Calcium Phosphorus Magnesium AST Alkaline Phosphatase C-Reactive Protein Total Protein Albumin Lipase Vitamin B12 TSH Urine WBC (Auto) Urine Chloride Urine Total Protein Crossmatch 10/14/16 10/14/16 10/14/16 12:02 12:02 13:11 WBC 13.4 H RBC 3.60 L Hgb Hct MCV 98 H D RDW 13.1 L Plt Count Lymph % (Auto) [place] % (Auto) [place] # Seg Neutrophils % Seg Neuts % (Manual) Lymphocytes % (Manual) Monocytes % (Manual) Nucleated RBC % Seg Neutrophils # Seg Neutrophils # Man Lymphocytes # (Manual) Monocytes # (Manual) Eosinophils # (Manual) Basophils # (Manual) PT INR APTT Heparin Anti-Xa Level POC ABG pH POC ABG pCO2 POC ABG pO2 Sodium Potassium Chloride 110.7 H Carbon Dioxide 19 L BUN 38 H Creatinine 1.4 H Glucose 182 H POC Glucose 173 H Calcium 7.5 L Phosphorus Magnesium AST Alkaline Phosphatase C-Reactive Protein Total Protein Albumin Lipase Vitamin B12 TSH Urine WBC (Auto) Urine Chloride Urine Total Protein Crossmatch 10/14/16 10/14/16 10/14/16 14:24 15:31 16:36 WBC RBC Hgb Hct MCV RDW Plt Count Lymph % (Auto) [place] % (Auto) [place] # Seg Neutrophils % Seg Neuts % (Manual) Lymphocytes % (Manual) Monocytes % (Manual) Nucleated RBC % Seg Neutrophils # Seg Neutrophils # Man Lymphocytes # (Manual) Monocytes # (Manual) Eosinophils # (Manual) Basophils # (Manual) PT INR APTT Heparin Anti-Xa Level POC ABG pH POC ABG pCO2 POC ABG pO2 Sodium Potassium Chloride Carbon Dioxide BUN Creatinine Glucose POC Glucose 123 H 124 H 156 H Calcium Phosphorus Magnesium AST Alkaline Phosphatase C-Reactive Protein Total Protein Albumin Lipase Vitamin B12 TSH Urine WBC (Auto) Urine Chloride Urine Total Protein Crossmatch 10/14/16 10/14/16 10/14/16 17:43 19:00 20:08 WBC RBC Hgb Hct MCV RDW Plt Count Lymph % (Auto) [place] % (Auto) [place] # Seg Neutrophils % Seg Neuts % (Manual) Lymphocytes % (Manual) Monocytes % (Manual) Nucleated RBC % Seg Neutrophils # Seg Neutrophils # Man Lymphocytes # (Manual) Monocytes # (Manual) Eosinophils # (Manual) Basophils # (Manual) PT INR APTT Heparin Anti-Xa Level POC ABG pH POC ABG pCO2 POC ABG pO2 Sodium Potassium Chloride Carbon Dioxide BUN Creatinine Glucose POC Glucose 154 H 123 H 138 H Calcium Phosphorus Magnesium AST Alkaline Phosphatase C-Reactive Protein Total Protein Albumin Lipase Vitamin B12 TSH Urine WBC (Auto) Urine Chloride Urine Total Protein Crossmatch 10/14/16 10/14/16 10/14/16 21:17 22:25 23:37 WBC RBC Hgb Hct MCV RDW Plt Count Lymph % (Auto) [place] % (Auto) [place] # Seg Neutrophils % Seg Neuts % (Manual) Lymphocytes % (Manual) Monocytes % (Manual) Nucleated RBC % Seg Neutrophils # Seg Neutrophils # Man Lymphocytes # (Manual) Monocytes # (Manual) Eosinophils # (Manual) Basophils # (Manual) PT INR APTT Heparin Anti-Xa Level POC ABG pH POC ABG pCO2 POC ABG pO2 Sodium Potassium Chloride Carbon Dioxide BUN Creatinine Glucose POC Glucose 148 H 132 H 137 H Calcium Phosphorus Magnesium AST Alkaline Phosphatase C-Reactive Protein Total Protein Albumin Lipase Vitamin B12 TSH Urine WBC (Auto) Urine Chloride Urine Total Protein Crossmatch 10/15/16 10/15/16 10/15/16 00:49 01:53 03:06 WBC RBC Hgb Hct MCV RDW Plt Count Lymph % (Auto) [place] % (Auto) [place] # Seg Neutrophils % Seg Neuts % (Manual) Lymphocytes % (Manual) Monocytes % (Manual) Nucleated RBC % Seg Neutrophils # Seg Neutrophils # Man Lymphocytes # (Manual) Monocytes # (Manual) Eosinophils # (Manual) Basophils # (Manual) PT INR APTT Heparin Anti-Xa Level POC ABG pH POC ABG pCO2 POC ABG pO2 Sodium Potassium Chloride Carbon Dioxide BUN Creatinine Glucose POC Glucose 132 H 134 H 134 H Calcium Phosphorus Magnesium AST Alkaline Phosphatase C-Reactive Protein Total Protein Albumin Lipase Vitamin B12 TSH Urine WBC (Auto) Urine Chloride Urine Total Protein Crossmatch 10/15/16 10/15/16 10/15/16 04:40 04:46 06:21 WBC RBC Hgb Hct MCV RDW Plt Count Lymph % (Auto) [place] % (Auto) [place] # Seg Neutrophils % Seg Neuts % (Manual) Lymphocytes % (Manual) Monocytes % (Manual) Nucleated RBC % Seg Neutrophils # Seg Neutrophils # Man Lymphocytes # (Manual) Monocytes # (Manual) Eosinophils # (Manual) Basophils # (Manual) PT INR APTT Heparin Anti-Xa Level POC ABG pH POC ABG pCO2 30.7 L POC ABG pO2 108 H Sodium Potassium Chloride 109.0 H Carbon Dioxide 17 L BUN 27 H Creatinine Glucose 124 H POC Glucose 160 H Calcium 7.5 L Phosphorus Magnesium AST 79 H Alkaline Phosphatase C-Reactive Protein Total Protein 5.5 L Albumin 3.0 L Lipase Vitamin B12 TSH Urine WBC (Auto) Urine Chloride Urine Total Protein Crossmatch 10/15/16 10/15/16 10/15/16 07:12 08:01 09:03 WBC RBC Hgb Hct MCV RDW Plt Count Lymph % (Auto) [place] % (Auto) [place] # Seg Neutrophils % Seg Neuts % (Manual) Lymphocytes % (Manual) Monocytes % (Manual) Nucleated RBC % Seg Neutrophils # Seg Neutrophils # Man Lymphocytes # (Manual) Monocytes # (Manual) Eosinophils # (Manual) Basophils # (Manual) PT INR APTT Heparin Anti-Xa Level POC ABG pH POC ABG pCO2 POC ABG pO2 Sodium Potassium Chloride Carbon Dioxide BUN Creatinine Glucose POC Glucose 179 H 187 H 165 H Calcium Phosphorus Magnesium AST Alkaline Phosphatase C-Reactive Protein Total Protein Albumin Lipase Vitamin B12 TSH Urine WBC (Auto) Urine Chloride Urine Total Protein Crossmatch 10/15/16 10/15/16 10/15/16 10:06 10:06 10:07 WBC 12.1 H RBC 3.01 L Hgb 9.7 L Hct 29.6 L MCV 98 H RDW Plt Count 129 L Lymph % (Auto) [place] % (Auto) [place] # Seg Neutrophils % Seg Neuts % (Manual) Lymphocytes % (Manual) Monocytes % (Manual) Nucleated RBC % Seg Neutrophils # Seg Neutrophils # Man Lymphocytes # (Manual) Monocytes # (Manual) Eosinophils # (Manual) Basophils # (Manual) PT INR APTT Heparin Anti-Xa Level POC ABG pH POC ABG pCO2 POC ABG pO2 Sodium Potassium 3.2 L D Chloride 109.6 H Carbon Dioxide 18 L BUN 22 H Creatinine Glucose 127 H POC Glucose 147 H Calcium 7.0 L Phosphorus Magnesium AST Alkaline Phosphatase C-Reactive Protein Total Protein Albumin Lipase Vitamin B12 TSH Urine WBC (Auto) Urine Chloride Urine Total Protein Crossmatch 10/15/16 10/15/16 10/15/16 11:05 11:06 11:57 WBC RBC Hgb Hct MCV RDW Plt Count Lymph % (Auto) [place] % (Auto) [place] # Seg Neutrophils % Seg Neuts % (Manual) Lymphocytes % (Manual) Monocytes % (Manual) Nucleated RBC % Seg Neutrophils # Seg Neutrophils # Man Lymphocytes # (Manual) Monocytes # (Manual) Eosinophils # (Manual) Basophils # (Manual) PT INR APTT Heparin Anti-Xa Level POC ABG pH 7.305 L POC ABG pCO2 POC ABG pO2 Sodium Potassium Chloride Carbon Dioxide BUN Creatinine Glucose POC Glucose 145 H Calcium Phosphorus Magnesium AST Alkaline Phosphatase C-Reactive Protein Total Protein Albumin Lipase Vitamin B12 TSH Urine WBC (Auto) 7.0 H Urine Chloride Urine Total Protein Crossmatch 10/15/16 10/15/16 10/15/16 12:04 13:59 15:24 WBC RBC Hgb Hct MCV RDW Plt Count Lymph % (Auto) [place] % (Auto) [place] # Seg Neutrophils % Seg Neuts % (Manual) Lymphocytes % (Manual) Monocytes % (Manual) Nucleated RBC % Seg Neutrophils # Seg Neutrophils # Man Lymphocytes # (Manual) Monocytes # (Manual) Eosinophils # (Manual) Basophils # (Manual) PT INR APTT Heparin Anti-Xa Level POC ABG pH POC ABG pCO2 POC ABG pO2 Sodium Potassium Chloride Carbon Dioxide BUN Creatinine Glucose POC Glucose 123 H 147 H 153 H Calcium Phosphorus Magnesium AST Alkaline Phosphatase C-Reactive Protein Total Protein Albumin Lipase Vitamin B12 TSH Urine WBC (Auto) Urine Chloride Urine Total Protein Crossmatch 10/15/16 10/15/16 10/15/16 16:30 17:34 18:30 WBC RBC Hgb Hct MCV RDW Plt Count Lymph % (Auto) [place] % (Auto) [place] # Seg Neutrophils % Seg Neuts % (Manual) Lymphocytes % (Manual) Monocytes % (Manual) Nucleated RBC % Seg Neutrophils # Seg Neutrophils # Man Lymphocytes # (Manual) Monocytes # (Manual) Eosinophils # (Manual) Basophils # (Manual) PT INR APTT Heparin Anti-Xa Level POC ABG pH POC ABG pCO2 POC ABG pO2 Sodium Potassium Chloride Carbon Dioxide BUN Creatinine Glucose POC Glucose 223 H 236 H 164 H Calcium Phosphorus Magnesium AST Alkaline Phosphatase C-Reactive Protein Total Protein Albumin Lipase Vitamin B12 TSH Urine WBC (Auto) Urine Chloride Urine Total Protein Crossmatch 10/15/16 10/15/16 10/15/16 19:14 20:31 21:23 WBC RBC Hgb Hct MCV RDW Plt Count Lymph % (Auto) [place] % (Auto) [place] # Seg Neutrophils % Seg Neuts % (Manual) Lymphocytes % (Manual) Monocytes % (Manual) Nucleated RBC % Seg Neutrophils # Seg Neutrophils # Man Lymphocytes # (Manual) Monocytes # (Manual) Eosinophils # (Manual) Basophils # (Manual) PT INR APTT Heparin Anti-Xa Level POC ABG pH POC ABG pCO2 POC ABG pO2 Sodium Potassium Chloride Carbon Dioxide BUN Creatinine Glucose POC Glucose 138 H 158 H 158 H Calcium Phosphorus Magnesium AST Alkaline Phosphatase C-Reactive Protein Total Protein Albumin Lipase Vitamin B12 TSH Urine WBC (Auto) Urine Chloride Urine Total Protein Crossmatch 10/15/16 10/15/16 10/16/16 22:04 22:57 00:11 WBC RBC Hgb Hct MCV RDW Plt Count Lymph % (Auto) [place] % (Auto) [place] # Seg Neutrophils % Seg Neuts % (Manual) Lymphocytes % (Manual) Monocytes % (Manual) Nucleated RBC % Seg Neutrophils # Seg Neutrophils # Man Lymphocytes # (Manual) Monocytes # (Manual) Eosinophils # (Manual) Basophils # (Manual) PT INR APTT Heparin Anti-Xa Level POC ABG pH POC ABG pCO2 POC ABG pO2 Sodium Potassium Chloride Carbon Dioxide BUN Creatinine Glucose POC Glucose 168 H 213 H 166 H Calcium Phosphorus Magnesium AST Alkaline Phosphatase C-Reactive Protein Total Protein Albumin Lipase Vitamin B12 TSH Urine WBC (Auto) Urine Chloride Urine Total Protein Crossmatch 10/16/16 10/16/16 10/16/16 01:16 02:32 03:38 WBC RBC Hgb Hct MCV RDW Plt Count Lymph % (Auto) [place] % (Auto) [place] # Seg Neutrophils % Seg Neuts % (Manual) Lymphocytes % (Manual) Monocytes % (Manual) Nucleated RBC % Seg Neutrophils # Seg Neutrophils # Man Lymphocytes # (Manual) Monocytes # (Manual) Eosinophils # (Manual) Basophils # (Manual) PT INR APTT Heparin Anti-Xa Level POC ABG pH POC ABG pCO2 POC ABG pO2 Sodium Potassium Chloride Carbon Dioxide BUN Creatinine Glucose POC Glucose 171 H 164 H 147 H Calcium Phosphorus Magnesium AST Alkaline Phosphatase C-Reactive Protein Total Protein Albumin Lipase Vitamin B12 TSH Urine WBC (Auto) Urine Chloride Urine Total Protein Crossmatch 10/16/16 10/16/16 10/16/16 04:14 04:14 04:49 WBC RBC Hgb Hct MCV RDW Plt Count Lymph % (Auto) [place] % (Auto) [place] # Seg Neutrophils % Seg Neuts % (Manual) Lymphocytes % (Manual) Monocytes % (Manual) Nucleated RBC % Seg Neutrophils # Seg Neutrophils # Man Lymphocytes # (Manual) Monocytes # (Manual) Eosinophils # (Manual) Basophils # (Manual) PT INR APTT Heparin Anti-Xa Level POC ABG pH POC ABG pCO2 POC ABG pO2 Sodium 147 H Potassium Chloride 110.9 H Carbon Dioxide 19 L BUN Creatinine Glucose 139 H POC Glucose 144 H Calcium 7.3 L Phosphorus 2.3 L Magnesium AST Alkaline Phosphatase C-Reactive Protein Total Protein Albumin Lipase 143 H Vitamin B12 TSH Urine WBC (Auto) Urine Chloride Urine Total Protein Crossmatch 10/16/16 10/16/16 10/16/16 05:03 05:41 05:58 WBC 16.5 H RBC 3.36 L Hgb Hct MCV 98 H RDW 13.1 L Plt Count Lymph % (Auto) 8.5 L [place] % (Auto) 7.6 H [place] # 1.3 H Seg Neutrophils % 83.3 H Seg Neuts % (Manual) Lymphocytes % (Manual) Monocytes % (Manual) Nucleated RBC % Seg Neutrophils # 13.8 H Seg Neutrophils # Man Lymphocytes # (Manual) Monocytes # (Manual) Eosinophils # (Manual) Basophils # (Manual) PT INR APTT Heparin Anti-Xa Level POC ABG pH POC ABG pCO2 30.7 L POC ABG pO2 128 H Sodium Potassium Chloride Carbon Dioxide BUN Creatinine Glucose POC Glucose 131 H Calcium Phosphorus Magnesium AST Alkaline Phosphatase C-Reactive Protein Total Protein Albumin Lipase Vitamin B12 TSH Urine WBC (Auto) Urine Chloride Urine Total Protein Crossmatch 10/16/16 10/16/16 10/16/16 06:32 09:27 09:35 WBC RBC Hgb Hct MCV RDW Plt Count Lymph % (Auto) [place] % (Auto) [place] # Seg Neutrophils % Seg Neuts % (Manual) Lymphocytes % (Manual) Monocytes % (Manual) Nucleated RBC % Seg Neutrophils # Seg Neutrophils # Man Lymphocytes # (Manual) Monocytes # (Manual) Eosinophils # (Manual) Basophils # (Manual) PT INR APTT Heparin Anti-Xa Level POC ABG pH POC ABG pCO2 32.8 L POC ABG pO2 137 H Sodium Potassium Chloride Carbon Dioxide BUN Creatinine Glucose POC Glucose 121 H 150 H Calcium Phosphorus Magnesium AST Alkaline Phosphatase C-Reactive Protein Total Protein Albumin Lipase Vitamin B12 TSH Urine WBC (Auto) Urine Chloride Urine Total Protein Crossmatch 10/16/16 10/16/16 10/16/16 10:47 13:27 14:24 WBC RBC Hgb Hct MCV RDW Plt Count Lymph % (Auto) [place] % (Auto) [place] # Seg Neutrophils % Seg Neuts % (Manual) Lymphocytes % (Manual) Monocytes % (Manual) Nucleated RBC % Seg Neutrophils # Seg Neutrophils # Man Lymphocytes # (Manual) Monocytes # (Manual) Eosinophils # (Manual) Basophils # (Manual) PT INR APTT Heparin Anti-Xa Level POC ABG pH POC ABG pCO2 POC ABG pO2 Sodium Potassium Chloride Carbon Dioxide BUN Creatinine Glucose POC Glucose 184 H 171 H 174 H Calcium Phosphorus Magnesium AST Alkaline Phosphatase C-Reactive Protein Total Protein Albumin Lipase Vitamin B12 TSH Urine WBC (Auto) Urine Chloride Urine Total Protein Crossmatch 10/16/16 10/16/16 10/16/16 15:48 16:26 18:17 WBC RBC Hgb Hct MCV RDW Plt Count Lymph % (Auto) [place] % (Auto) [place] # Seg Neutrophils % Seg Neuts % (Manual) Lymphocytes % (Manual) Monocytes % (Manual) Nucleated RBC % Seg Neutrophils # Seg Neutrophils # Man Lymphocytes # (Manual) Monocytes # (Manual) Eosinophils # (Manual) Basophils # (Manual) PT INR APTT Heparin Anti-Xa Level POC ABG pH POC ABG pCO2 POC ABG pO2 Sodium Potassium Chloride Carbon Dioxide BUN Creatinine Glucose POC Glucose 205 H 204 H 234 H Calcium Phosphorus Magnesium AST Alkaline Phosphatase C-Reactive Protein Total Protein Albumin Lipase Vitamin B12 TSH Urine WBC (Auto) Urine Chloride Urine Total Protein Crossmatch 10/16/16 10/16/16 10/16/16 19:40 20:33 21:36 WBC RBC Hgb Hct MCV RDW Plt Count Lymph % (Auto) [place] % (Auto) [place] # Seg Neutrophils % Seg Neuts % (Manual) Lymphocytes % (Manual) Monocytes % (Manual) Nucleated RBC % Seg Neutrophils # Seg Neutrophils # Man Lymphocytes # (Manual) Monocytes # (Manual) Eosinophils # (Manual) Basophils # (Manual) PT INR APTT Heparin Anti-Xa Level POC ABG pH POC ABG pCO2 POC ABG pO2 Sodium Potassium Chloride Carbon Dioxide BUN Creatinine Glucose POC Glucose 167 H 153 H 158 H Calcium Phosphorus Magnesium AST Alkaline Phosphatase C-Reactive Protein Total Protein Albumin Lipase Vitamin B12 TSH Urine WBC (Auto) Urine Chloride Urine Total Protein Crossmatch 10/16/16 10/16/16 10/17/16 22:54 23:48 00:47 WBC RBC Hgb Hct MCV RDW Plt Count Lymph % (Auto) [place] % (Auto) [place] # Seg Neutrophils % Seg Neuts % (Manual) Lymphocytes % (Manual) Monocytes % (Manual) Nucleated RBC % Seg Neutrophils # Seg Neutrophils # Man Lymphocytes # (Manual) Monocytes # (Manual) Eosinophils # (Manual) Basophils # (Manual) PT INR APTT Heparin Anti-Xa Level POC ABG pH POC ABG pCO2 POC ABG pO2 Sodium Potassium Chloride Carbon Dioxide BUN Creatinine Glucose POC Glucose 180 H 207 H 196 H Calcium Phosphorus Magnesium AST Alkaline Phosphatase C-Reactive Protein Total Protein Albumin Lipase Vitamin B12 TSH Urine WBC (Auto) Urine Chloride Urine Total Protein Crossmatch 10/17/16 10/17/16 10/17/16 01:57 02:49 03:50 WBC RBC Hgb Hct MCV RDW Plt Count Lymph % (Auto) [place] % (Auto) [place] # Seg Neutrophils % Seg Neuts % (Manual) Lymphocytes % (Manual) Monocytes % (Manual) Nucleated RBC % Seg Neutrophils # Seg Neutrophils # Man Lymphocytes # (Manual) Monocytes # (Manual) Eosinophils # (Manual) Basophils # (Manual) PT INR APTT Heparin Anti-Xa Level POC ABG pH POC ABG pCO2 POC ABG pO2 Sodium Potassium Chloride Carbon Dioxide BUN Creatinine Glucose POC Glucose 180 H 151 H 106 H Calcium Phosphorus Magnesium AST Alkaline Phosphatase C-Reactive Protein Total Protein Albumin Lipase Vitamin B12 TSH Urine WBC (Auto) Urine Chloride Urine Total Protein Crossmatch 10/17/16 10/17/16 10/17/16 04:59 06:03 06:35 WBC RBC Hgb Hct MCV RDW Plt Count Lymph % (Auto) [place] % (Auto) [place] # Seg Neutrophils % Seg Neuts % (Manual) Lymphocytes % (Manual) Monocytes % (Manual) Nucleated RBC % Seg Neutrophils # Seg Neutrophils # Man Lymphocytes # (Manual) Monocytes # (Manual) Eosinophils # (Manual) Basophils # (Manual) PT INR APTT Heparin Anti-Xa Level POC ABG pH 7.453 H POC ABG pCO2 30.1 L POC ABG pO2 111 H Sodium Potassium Chloride Carbon Dioxide BUN Creatinine Glucose POC Glucose 145 H 157 H Calcium Phosphorus Magnesium AST Alkaline Phosphatase C-Reactive Protein Total Protein Albumin Lipase Vitamin B12 TSH Urine WBC (Auto) Urine Chloride Urine Total Protein Crossmatch 10/17/16 10/17/16 10/17/16 07:08 07:11 08:01 WBC RBC Hgb Hct MCV RDW Plt Count Lymph % (Auto) [place] % (Auto) [place] # Seg Neutrophils % Seg Neuts % (Manual) Lymphocytes % (Manual) Monocytes % (Manual) Nucleated RBC % Seg Neutrophils # Seg Neutrophils # Man Lymphocytes # (Manual) Monocytes # (Manual) Eosinophils # (Manual) Basophils # (Manual) PT INR APTT Heparin Anti-Xa Level POC ABG pH POC ABG pCO2 POC ABG pO2 Sodium 147 H Potassium Chloride 113.8 H Carbon Dioxide 19 L BUN Creatinine Glucose 136 H POC Glucose 136 H 152 H Calcium 7.7 L Phosphorus Magnesium AST Alkaline Phosphatase C-Reactive Protein Total Protein Albumin Lipase Vitamin B12 TSH Urine WBC (Auto) Urine Chloride Urine Total Protein Crossmatch 10/17/16 10/17/16 10/17/16 08:23 09:17 09:53 WBC 18.1 H RBC 3.01 L Hgb 9.7 L Hct 29.4 L MCV 98 H RDW Plt Count 116 L Lymph % (Auto) [place] % (Auto) [place] # Seg Neutrophils % Seg Neuts % (Manual) 77.0 H Lymphocytes % (Manual) 4.0 L Monocytes % (Manual) 12.0 H Nucleated RBC % Seg Neutrophils # Seg Neutrophils # Man 13.9 H Lymphocytes # (Manual) 0.7 L Monocytes # (Manual) 2.2 H Eosinophils # (Manual) Basophils # (Manual) PT INR APTT Heparin Anti-Xa Level POC ABG pH POC ABG pCO2 POC ABG pO2 Sodium Potassium Chloride Carbon Dioxide BUN Creatinine Glucose POC Glucose 148 H 137 H Calcium Phosphorus Magnesium AST Alkaline Phosphatase C-Reactive Protein Total Protein Albumin Lipase Vitamin B12 TSH Urine WBC (Auto) Urine Chloride Urine Total Protein Crossmatch 10/17/16 10/17/16 10/17/16 11:43 16:07 17:42 WBC RBC Hgb Hct MCV RDW Plt Count Lymph % (Auto) [place] % (Auto) [place] # Seg Neutrophils % Seg Neuts % (Manual) Lymphocytes % (Manual) Monocytes % (Manual) Nucleated RBC % Seg Neutrophils # Seg Neutrophils # Man Lymphocytes # (Manual) Monocytes # (Manual) Eosinophils # (Manual) Basophils # (Manual) PT 16.4 H INR 1.33 H APTT 38.8 H Heparin Anti-Xa Level POC ABG pH POC ABG pCO2 POC ABG pO2 Sodium Potassium Chloride Carbon Dioxide BUN Creatinine Glucose POC Glucose 179 H 153 H Calcium Phosphorus Magnesium AST Alkaline Phosphatase C-Reactive Protein Total Protein Albumin Lipase Vitamin B12 TSH Urine WBC (Auto) Urine Chloride Urine Total Protein Crossmatch 10/17/16 10/18/16 10/18/16 22:54 04:37 05:39 WBC RBC Hgb Hct MCV RDW Plt Count Lymph % (Auto) [place] % (Auto) [place] # Seg Neutrophils % Seg Neuts % (Manual) Lymphocytes % (Manual) Monocytes % (Manual) Nucleated RBC % Seg Neutrophils # Seg Neutrophils # Man Lymphocytes # (Manual) Monocytes # (Manual) Eosinophils # (Manual) Basophils # (Manual) PT INR APTT Heparin Anti-Xa Level 0.27 L POC ABG pH 7.454 H POC ABG pCO2 30.8 L POC ABG pO2 115 H Sodium Potassium Chloride Carbon Dioxide BUN Creatinine Glucose POC Glucose 69 L Calcium Phosphorus Magnesium AST Alkaline Phosphatase C-Reactive Protein Total Protein Albumin Lipase Vitamin B12 TSH Urine WBC (Auto) Urine Chloride Urine Total Protein Crossmatch 10/18/16 10/18/16 10/18/16 06:46 06:46 06:46 WBC 20.5 H RBC 2.62 L Hgb 8.4 L Hct 26.0 L MCV 100 H RDW Plt Count Lymph % (Auto) [place] % (Auto) [place] # Seg Neutrophils % Seg Neuts % (Manual) 75.0 H Lymphocytes % (Manual) 9.0 L Monocytes % (Manual) 14.0 H Nucleated RBC % Seg Neutrophils # Seg Neutrophils # Man 15.4 H Lymphocytes # (Manual) Monocytes # (Manual) 2.9 H Eosinophils # (Manual) Basophils # (Manual) PT INR APTT Heparin Anti-Xa Level POC ABG pH POC ABG pCO2 POC ABG pO2 Sodium Potassium Chloride 110.6 H Carbon Dioxide BUN Creatinine 1.3 H Glucose 153 H POC Glucose Calcium 8.0 L Phosphorus Magnesium 1.6 L AST Alkaline Phosphatase C-Reactive Protein Total Protein Albumin Lipase Vitamin B12 TSH Urine WBC (Auto) Urine Chloride Urine Total Protein Crossmatch 10/18/16 10/18/16 10/18/16 07:30 11:37 17:51 WBC RBC Hgb Hct MCV RDW Plt Count Lymph % (Auto) [place] % (Auto) [place] # Seg Neutrophils % Seg Neuts % (Manual) Lymphocytes % (Manual) Monocytes % (Manual) Nucleated RBC % Seg Neutrophils # Seg Neutrophils # Man Lymphocytes # (Manual) Monocytes # (Manual) Eosinophils # (Manual) Basophils # (Manual) PT INR APTT Heparin Anti-Xa Level POC ABG pH POC ABG pCO2 POC ABG pO2 Sodium Potassium Chloride Carbon Dioxide BUN Creatinine Glucose POC Glucose 162 H 156 H 164 H Calcium Phosphorus Magnesium AST Alkaline Phosphatase C-Reactive Protein Total Protein Albumin Lipase Vitamin B12 TSH Urine WBC (Auto) Urine Chloride Urine Total Protein Crossmatch 10/18/16 10/19/16 10/19/16 23:44 03:59 05:13 WBC 18.2 H RBC 2.76 L Hgb 9.0 L Hct 27.7 L MCV 100 H RDW Plt Count Lymph % (Auto) [place] % (Auto) [place] # Seg Neutrophils % Seg Neuts % (Manual) 76.0 H Lymphocytes % (Manual) 10.0 L Monocytes % (Manual) Nucleated RBC % Seg Neutrophils # Seg Neutrophils # Man 13.8 H Lymphocytes # (Manual) Monocytes # (Manual) Eosinophils # (Manual) Basophils # (Manual) PT INR APTT Heparin Anti-Xa Level POC ABG pH POC ABG pCO2 32.2 L POC ABG pO2 128 H Sodium Potassium Chloride Carbon Dioxide BUN Creatinine Glucose POC Glucose 278 H Calcium Phosphorus Magnesium AST Alkaline Phosphatase C-Reactive Protein Total Protein Albumin Lipase Vitamin B12 TSH Urine WBC (Auto) Urine Chloride Urine Total Protein Crossmatch 10/19/16 10/19/16 10/19/16 06:01 06:30 12:20 WBC RBC Hgb Hct MCV RDW Plt Count Lymph % (Auto) [place] % (Auto) [place] # Seg Neutrophils % Seg Neuts % (Manual) Lymphocytes % (Manual) Monocytes % (Manual) Nucleated RBC % Seg Neutrophils # Seg Neutrophils # Man Lymphocytes # (Manual) Monocytes # (Manual) Eosinophils # (Manual) Basophils # (Manual) PT INR APTT Heparin Anti-Xa Level POC ABG pH POC ABG pCO2 POC ABG pO2 Sodium Potassium Chloride Carbon Dioxide 18 L BUN Creatinine 1.3 H Glucose 262 H POC Glucose 261 H 349 H Calcium 7.7 L Phosphorus 4.8 H D Magnesium AST Alkaline Phosphatase C-Reactive Protein Total Protein Albumin Lipase Vitamin B12 TSH Urine WBC (Auto) Urine Chloride Urine Total Protein Crossmatch 10/19/16 10/20/16 10/20/16 16:48 00:17 05:20 WBC 22.5 H RBC 2.80 L Hgb 8.9 L Hct 28.3 L MCV 101 H RDW Plt Count Lymph % (Auto) [place] % (Auto) [place] # Seg Neutrophils % Seg Neuts % (Manual) Lymphocytes % (Manual) 10.0 L Monocytes % (Manual) Nucleated RBC % Seg Neutrophils # Seg Neutrophils # Man 13.3 H Lymphocytes # (Manual) Monocytes # (Manual) 1.1 H Eosinophils # (Manual) 0.7 H Basophils # (Manual) PT INR APTT Heparin Anti-Xa Level POC ABG pH POC ABG pCO2 POC ABG pO2 Sodium Potassium Chloride Carbon Dioxide BUN Creatinine Glucose POC Glucose 248 H 346 H Calcium Phosphorus Magnesium AST Alkaline Phosphatase C-Reactive Protein Total Protein Albumin Lipase Vitamin B12 TSH Urine WBC (Auto) Urine Chloride Urine Total Protein Crossmatch 10/20/16 10/20/16 10/20/16 05:20 05:20 06:05 WBC RBC Hgb Hct MCV RDW Plt Count Lymph % (Auto) [place] % (Auto) [place] # Seg Neutrophils % Seg Neuts % (Manual) Lymphocytes % (Manual) Monocytes % (Manual) Nucleated RBC % Seg Neutrophils # Seg Neutrophils # Man Lymphocytes # (Manual) Monocytes # (Manual) Eosinophils # (Manual) Basophils # (Manual) PT INR APTT Heparin Anti-Xa Level 0.20 L POC ABG pH POC ABG pCO2 POC ABG pO2 Sodium Potassium Chloride Carbon Dioxide BUN 20 H Creatinine Glucose 374 H POC Glucose 337 H Calcium 8.3 L Phosphorus Magnesium AST Alkaline Phosphatase C-Reactive Protein Total Protein Albumin Lipase Vitamin B12 TSH Urine WBC (Auto) Urine Chloride Urine Total Protein Crossmatch 10/20/16 10/20/16 10/20/16 11:49 13:59 17:56 WBC RBC Hgb Hct MCV RDW Plt Count Lymph % (Auto) [place] % (Auto) [place] # Seg Neutrophils % Seg Neuts % (Manual) Lymphocytes % (Manual) Monocytes % (Manual) Nucleated RBC % Seg Neutrophils # Seg Neutrophils # Man Lymphocytes # (Manual) Monocytes # (Manual) Eosinophils # (Manual) Basophils # (Manual) PT INR APTT Heparin Anti-Xa Level 2.00 H POC ABG pH POC ABG pCO2 POC ABG pO2 Sodium Potassium Chloride Carbon Dioxide BUN Creatinine Glucose POC Glucose 305 H 362 H Calcium Phosphorus Magnesium AST Alkaline Phosphatase C-Reactive Protein Total Protein Albumin Lipase Vitamin B12 TSH Urine WBC (Auto) Urine Chloride Urine Total Protein Crossmatch 10/20/16 10/21/16 10/21/16 23:52 05:00 05:49 WBC 22.9 H RBC 2.49 L Hgb 7.7 L Hct 25.6 L MCV 103 H RDW Plt Count Lymph % (Auto) [place] % (Auto) [place] # Seg Neutrophils % Seg Neuts % (Manual) 94.0 H Lymphocytes % (Manual) 1.0 L Monocytes % (Manual) Nucleated RBC % Seg Neutrophils # Seg Neutrophils # Man 21.5 H Lymphocytes # (Manual) 0.2 L Monocytes # (Manual) 1.1 H Eosinophils # (Manual) Basophils # (Manual) PT INR APTT Heparin Anti-Xa Level POC ABG pH POC ABG pCO2 POC ABG pO2 Sodium Potassium Chloride Carbon Dioxide BUN Creatinine Glucose POC Glucose 252 H 180 H Calcium Phosphorus Magnesium AST Alkaline Phosphatase C-Reactive Protein Total Protein Albumin Lipase Vitamin B12 TSH Urine WBC (Auto) Urine Chloride Urine Total Protein Crossmatch 10/21/16 10/21/16 10/21/16 11:47 11:49 14:10 WBC RBC Hgb Hct MCV RDW Plt Count Lymph % (Auto) [place] % (Auto) [place] # Seg Neutrophils % Seg Neuts % (Manual) Lymphocytes % (Manual) Monocytes % (Manual) Nucleated RBC % Seg Neutrophils # Seg Neutrophils # Man Lymphocytes # (Manual) Monocytes # (Manual) Eosinophils # (Manual) Basophils # (Manual) PT INR APTT Heparin Anti-Xa Level POC ABG pH POC ABG pCO2 POC ABG pO2 Sodium Potassium Chloride Carbon Dioxide BUN Creatinine Glucose POC Glucose 50 L 56 L 140 H Calcium Phosphorus Magnesium AST Alkaline Phosphatase C-Reactive Protein Total Protein Albumin Lipase Vitamin B12 TSH Urine WBC (Auto) Urine Chloride Urine Total Protein Crossmatch 10/21/16 10/21/16 10/22/16 18:24 Unknown 00:07 WBC RBC Hgb Hct MCV RDW Plt Count Lymph % (Auto) [place] % (Auto) [place] # Seg Neutrophils % Seg Neuts % (Manual) Lymphocytes % (Manual) Monocytes % (Manual) Nucleated RBC % Seg Neutrophils # Seg Neutrophils # Man Lymphocytes # (Manual) Monocytes # (Manual) Eosinophils # (Manual) Basophils # (Manual) PT INR APTT Heparin Anti-Xa Level POC ABG pH POC ABG pCO2 POC ABG pO2 Sodium 150 H Potassium 3.1 L Chloride 112.4 H Carbon Dioxide BUN 25 H Creatinine 1.4 H Glucose POC Glucose 175 H 218 H Calcium 8.0 L Phosphorus Magnesium AST Alkaline Phosphatase C-Reactive Protein Total Protein Albumin Lipase Vitamin B12 TSH Urine WBC (Auto) Urine Chloride Urine Total Protein Crossmatch 10/22/16 10/22/16 10/22/16 04:20 04:20 10:25 WBC 20.8 H RBC 2.37 L Hgb 7.5 L Hct 23.9 L MCV 101 H RDW Plt Count Lymph % (Auto) [place] % (Auto) [place] # Seg Neutrophils % Seg Neuts % (Manual) 89.0 H Lymphocytes % (Manual) 7.0 L Monocytes % (Manual) Nucleated RBC % Seg Neutrophils # Seg Neutrophils # Man 18.5 H Lymphocytes # (Manual) Monocytes # (Manual) Eosinophils # (Manual) Basophils # (Manual) 0.2 H PT INR APTT Heparin Anti-Xa Level POC ABG pH POC ABG pCO2 POC ABG pO2 Sodium 148 H Potassium 2.9 L* Chloride 109.4 H Carbon Dioxide BUN 26 H Creatinine Glucose 140 H POC Glucose Calcium 7.5 L Phosphorus Magnesium AST Alkaline Phosphatase C-Reactive Protein Total Protein Albumin Lipase Vitamin B12 976.8 H TSH Urine WBC (Auto) Urine Chloride Urine Total Protein Crossmatch 10/22/16 10/22/16 10/22/16 10:25 14:50 18:16 WBC RBC Hgb Hct MCV RDW Plt Count Lymph % (Auto) [place] % (Auto) [place] # Seg Neutrophils % Seg Neuts % (Manual) Lymphocytes % (Manual) Monocytes % (Manual) Nucleated RBC % Seg Neutrophils # Seg Neutrophils # Man Lymphocytes # (Manual) Monocytes # (Manual) Eosinophils # (Manual) Basophils # (Manual) PT INR APTT Heparin Anti-Xa Level POC ABG pH POC ABG pCO2 POC ABG pO2 Sodium Potassium Chloride Carbon Dioxide BUN Creatinine Glucose POC Glucose 193 H Calcium Phosphorus Magnesium AST Alkaline Phosphatase C-Reactive Protein Total Protein Albumin Lipase Vitamin B12 TSH 0.143 L 0.162 L Urine WBC (Auto) Urine Chloride Urine Total Protein Crossmatch 10/22/16 10/22/16 10/22/16 20:00 20:00 20:00 WBC 24.1 H RBC 2.58 L Hgb 8.2 L Hct 26.4 L MCV 102 H RDW Plt Count Lymph % (Auto) [place] % (Auto) [place] # Seg Neutrophils % Seg Neuts % (Manual) 74.0 H Lymphocytes % (Manual) 7.0 L Monocytes % (Manual) Nucleated RBC % Seg Neutrophils # Seg Neutrophils # Man 17.8 H Lymphocytes # (Manual) Monocytes # (Manual) Eosinophils # (Manual) Basophils # (Manual) PT INR APTT Heparin Anti-Xa Level 1.92 H POC ABG pH POC ABG pCO2 POC ABG pO2 Sodium Potassium Chloride Carbon Dioxide BUN Creatinine Glucose POC Glucose Calcium Phosphorus Magnesium AST Alkaline Phosphatase C-Reactive Protein Total Protein Albumin Lipase Vitamin B12 TSH Urine WBC (Auto) Urine Chloride Urine Total Protein Crossmatch See Detail 10/23/16 10/23/16 10/23/16 00:21 06:09 12:07 WBC RBC Hgb Hct MCV RDW Plt Count Lymph % (Auto) [place] % (Auto) [place] # Seg Neutrophils % Seg Neuts % (Manual) Lymphocytes % (Manual) Monocytes % (Manual) Nucleated RBC % Seg Neutrophils # Seg Neutrophils # Man Lymphocytes # (Manual) Monocytes # (Manual) Eosinophils # (Manual) Basophils # (Manual) PT INR APTT Heparin Anti-Xa Level POC ABG pH POC ABG pCO2 POC ABG pO2 Sodium Potassium Chloride Carbon Dioxide BUN Creatinine Glucose POC Glucose 283 H 241 H 340 H Calcium Phosphorus Magnesium AST Alkaline Phosphatase C-Reactive Protein Total Protein Albumin Lipase Vitamin B12 TSH Urine WBC (Auto) Urine Chloride Urine Total Protein Crossmatch 10/23/16 10/23/16 10/23/16 14:01 16:00 17:59 WBC RBC Hgb Hct MCV RDW Plt Count Lymph % (Auto) [place] % (Auto) [place] # Seg Neutrophils % Seg Neuts % (Manual) Lymphocytes % (Manual) Monocytes % (Manual) Nucleated RBC % Seg Neutrophils # Seg Neutrophils # Man Lymphocytes # (Manual) Monocytes # (Manual) Eosinophils # (Manual) Basophils # (Manual) PT INR APTT Heparin Anti-Xa Level 0.19 L POC ABG pH POC ABG pCO2 32.4 L POC ABG pO2 Sodium Potassium Chloride Carbon Dioxide BUN Creatinine Glucose POC Glucose 245 H Calcium Phosphorus Magnesium AST Alkaline Phosphatase C-Reactive Protein Total Protein Albumin Lipase Vitamin B12 TSH Urine WBC (Auto) Urine Chloride Urine Total Protein Crossmatch 10/23/16 10/23/16 10/23/16 22:55 Unknown Unknown WBC 22.6 H RBC 3.26 L Hgb Hct MCV RDW 17.1 H Plt Count Lymph % (Auto) [place] % (Auto) [place] # Seg Neutrophils % Seg Neuts % (Manual) Lymphocytes % (Manual) 11.0 L Monocytes % (Manual) Nucleated RBC % Seg Neutrophils # Seg Neutrophils # Man 14.0 H Lymphocytes # (Manual) Monocytes # (Manual) Eosinophils # (Manual) Basophils # (Manual) PT INR APTT Heparin Anti-Xa Level 0.17 L 0.15 L POC ABG pH POC ABG pCO2 POC ABG pO2 Sodium Potassium Chloride Carbon Dioxide BUN Creatinine Glucose POC Glucose Calcium Phosphorus Magnesium AST Alkaline Phosphatase C-Reactive Protein Total Protein Albumin Lipase Vitamin B12 TSH Urine WBC (Auto) Urine Chloride Urine Total Protein Crossmatch 10/23/16 10/24/16 10/24/16 Unknown 00:05 05:30 WBC RBC Hgb Hct MCV RDW Plt Count Lymph % (Auto) [place] % (Auto) [place] # Seg Neutrophils % Seg Neuts % (Manual) Lymphocytes % (Manual) Monocytes % (Manual) Nucleated RBC % Seg Neutrophils # Seg Neutrophils # Man Lymphocytes # (Manual) Monocytes # (Manual) Eosinophils # (Manual) Basophils # (Manual) PT INR APTT Heparin Anti-Xa Level 0.13 L POC ABG pH POC ABG pCO2 POC ABG pO2 Sodium Potassium Chloride 111.2 H Carbon Dioxide 20 L BUN 25 H Creatinine Glucose 227 H POC Glucose 118 H Calcium 7.1 L Phosphorus Magnesium AST Alkaline Phosphatase C-Reactive Protein Total Protein Albumin Lipase Vitamin B12 TSH Urine WBC (Auto) Urine Chloride Urine Total Protein Crossmatch 10/24/16 10/24/16 10/24/16 11:00 11:00 12:06 WBC 17.6 H RBC 2.92 L Hgb 9.2 L Hct 28.3 L MCV RDW 16.9 H Plt Count Lymph % (Auto) [place] % (Auto) [place] # Seg Neutrophils % Seg Neuts % (Manual) Lymphocytes % (Manual) Monocytes % (Manual) Nucleated RBC % Seg Neutrophils # Seg Neutrophils # Man Lymphocytes # (Manual) Monocytes # (Manual) Eosinophils # (Manual) Basophils # (Manual) PT INR APTT Heparin Anti-Xa Level 0.27 L POC ABG pH POC ABG pCO2 POC ABG pO2 Sodium Potassium Chloride Carbon Dioxide BUN Creatinine Glucose POC Glucose 166 H Calcium Phosphorus Magnesium AST Alkaline Phosphatase C-Reactive Protein Total Protein Albumin Lipase Vitamin B12 TSH Urine WBC (Auto) Urine Chloride Urine Total Protein Crossmatch 10/24/16 10/25/16 10/25/16 12:27 00:49 03:30 WBC RBC Hgb 8.8 L Hct 28.1 L MCV RDW Plt Count Lymph % (Auto) [place] % (Auto) [place] # Seg Neutrophils % Seg Neuts % (Manual) Lymphocytes % (Manual) Monocytes % (Manual) Nucleated RBC % Seg Neutrophils # Seg Neutrophils # Man Lymphocytes # (Manual) Monocytes # (Manual) Eosinophils # (Manual) Basophils # (Manual) PT INR APTT Heparin Anti-Xa Level POC ABG pH POC ABG pCO2 33.9 L POC ABG pO2 Sodium Potassium Chloride Carbon Dioxide BUN Creatinine Glucose POC Glucose 121 H Calcium Phosphorus Magnesium AST Alkaline Phosphatase C-Reactive Protein Total Protein Albumin Lipase Vitamin B12 TSH Urine WBC (Auto) Urine Chloride Urine Total Protein Crossmatch 10/25/16 10/25/16 10/25/16 09:49 12:10 19:25 WBC 21.1 H RBC 3.02 L Hgb 9.3 L Hct 28.9 L MCV RDW 16.3 H Plt Count Lymph % (Auto) [place] % (Auto) [place] # Seg Neutrophils % Seg Neuts % (Manual) 81.0 H Lymphocytes % (Manual) 9.0 L Monocytes % (Manual) Nucleated RBC % Seg Neutrophils # Seg Neutrophils # Man 17.1 H Lymphocytes # (Manual) Monocytes # (Manual) Eosinophils # (Manual) Basophils # (Manual) PT INR APTT Heparin Anti-Xa Level POC ABG pH POC ABG pCO2 POC ABG pO2 Sodium Potassium Chloride Carbon Dioxide BUN Creatinine Glucose POC Glucose 158 H 151 H Calcium Phosphorus Magnesium AST Alkaline Phosphatase C-Reactive Protein Total Protein Albumin Lipase Vitamin B12 TSH Urine WBC (Auto) Urine Chloride Urine Total Protein Crossmatch 10/26/16 10/26/16 10/26/16 00:20 01:09 05:02 WBC 22.2 H RBC 2.89 L Hgb 8.7 L Hct 27.8 L MCV RDW 16.4 H Plt Count Lymph % (Auto) [place] % (Auto) [place] # Seg Neutrophils % Seg Neuts % (Manual) Lymphocytes % (Manual) Monocytes % (Manual) Nucleated RBC % Seg Neutrophils # Seg Neutrophils # Man Lymphocytes # (Manual) Monocytes # (Manual) Eosinophils # (Manual) Basophils # (Manual) PT INR APTT Heparin Anti-Xa Level POC ABG pH POC ABG pCO2 POC ABG pO2 Sodium Potassium Chloride Carbon Dioxide BUN Creatinine Glucose POC Glucose 44 L 112 H Calcium Phosphorus Magnesium AST Alkaline Phosphatase C-Reactive Protein Total Protein Albumin Lipase Vitamin B12 TSH Urine WBC (Auto) Urine Chloride Urine Total Protein Crossmatch 10/26/16 10/26/16 10/26/16 05:02 12:11 12:14 WBC RBC Hgb Hct MCV RDW Plt Count Lymph % (Auto) [place] % (Auto) [place] # Seg Neutrophils % Seg Neuts % (Manual) Lymphocytes % (Manual) Monocytes % (Manual) Nucleated RBC % Seg Neutrophils # Seg Neutrophils # Man Lymphocytes # (Manual) Monocytes # (Manual) Eosinophils # (Manual) Basophils # (Manual) PT INR APTT Heparin Anti-Xa Level POC ABG pH POC ABG pCO2 32.0 L POC ABG pO2 33 L Sodium Potassium 3.2 L D Chloride Carbon Dioxide 20 L BUN 24 H Creatinine Glucose 104 H POC Glucose 194 H Calcium 7.7 L Phosphorus Magnesium AST Alkaline Phosphatase C-Reactive Protein Total Protein Albumin Lipase Vitamin B12 TSH Urine WBC (Auto) Urine Chloride Urine Total Protein Crossmatch 10/26/16 10/26/16 10/27/16 15:28 17:23 00:04 WBC RBC Hgb Hct MCV RDW Plt Count Lymph % (Auto) [place] % (Auto) [place] # Seg Neutrophils % Seg Neuts % (Manual) Lymphocytes % (Manual) Monocytes % (Manual) Nucleated RBC % Seg Neutrophils # Seg Neutrophils # Man Lymphocytes # (Manual) Monocytes # (Manual) Eosinophils # (Manual) Basophils # (Manual) PT INR APTT Heparin Anti-Xa Level POC ABG pH POC ABG pCO2 33.7 L POC ABG pO2 Sodium Potassium Chloride Carbon Dioxide BUN Creatinine Glucose POC Glucose 181 H 230 H Calcium Phosphorus Magnesium AST Alkaline Phosphatase C-Reactive Protein Total Protein Albumin Lipase Vitamin B12 TSH Urine WBC (Auto) Urine Chloride Urine Total Protein Crossmatch 10/27/16 10/27/16 10/27/16 05:15 05:15 05:38 WBC 25.5 H RBC 3.07 L Hgb 9.4 L Hct 30.1 L MCV 98 H RDW 16.4 H Plt Count 527 H Lymph % (Auto) [place] % (Auto) [place] # Seg Neutrophils % Seg Neuts % (Manual) Lymphocytes % (Manual) Monocytes % (Manual) Nucleated RBC % Seg Neutrophils # Seg Neutrophils # Man Lymphocytes # (Manual) Monocytes # (Manual) Eosinophils # (Manual) Basophils # (Manual) PT INR APTT Heparin Anti-Xa Level POC ABG pH POC ABG pCO2 POC ABG pO2 Sodium Potassium Chloride Carbon Dioxide 19 L BUN 23 H Creatinine Glucose 160 H POC Glucose 168 H Calcium 8.0 L Phosphorus Magnesium AST Alkaline Phosphatase C-Reactive Protein Total Protein Albumin Lipase Vitamin B12 TSH Urine WBC (Auto) Urine Chloride Urine Total Protein Crossmatch 10/27/16 10/27/16 10/27/16 11:59 18:35 23:48 WBC RBC Hgb Hct MCV RDW Plt Count Lymph % (Auto) [place] % (Auto) [place] # Seg Neutrophils % Seg Neuts % (Manual) Lymphocytes % (Manual) Monocytes % (Manual) Nucleated RBC % Seg Neutrophils # Seg Neutrophils # Man Lymphocytes # (Manual) Monocytes # (Manual) Eosinophils # (Manual) Basophils # (Manual) PT INR APTT Heparin Anti-Xa Level POC ABG pH POC ABG pCO2 POC ABG pO2 Sodium Potassium Chloride Carbon Dioxide BUN Creatinine Glucose POC Glucose 197 H 318 H 316 H Calcium Phosphorus Magnesium AST Alkaline Phosphatase C-Reactive Protein Total Protein Albumin Lipase Vitamin B12 TSH Urine WBC (Auto) Urine Chloride Urine Total Protein Crossmatch 10/28/16 10/28/16 10/28/16 03:13 04:10 04:10 WBC 18.8 H RBC 2.64 L Hgb 8.1 L Hct 26.1 L MCV 99 H RDW 16.2 H Plt Count 544 H Lymph % (Auto) [place] % (Auto) [place] # Seg Neutrophils % Seg Neuts % (Manual) Lymphocytes % (Manual) Monocytes % (Manual) Nucleated RBC % Seg Neutrophils # Seg Neutrophils # Man Lymphocytes # (Manual) Monocytes # (Manual) Eosinophils # (Manual) Basophils # (Manual) PT INR APTT Heparin Anti-Xa Level POC ABG pH POC ABG pCO2 POC ABG pO2 Sodium Potassium Chloride Carbon Dioxide 21 L BUN 24 H Creatinine Glucose 302 H POC Glucose 304 H Calcium 7.7 L Phosphorus Magnesium AST Alkaline Phosphatase C-Reactive Protein Total Protein Albumin Lipase Vitamin B12 TSH Urine WBC (Auto) Urine Chloride Urine Total Protein Crossmatch 10/28/16 10/28/16 10/28/16 04:10 12:36 18:27 WBC RBC Hgb Hct MCV RDW Plt Count Lymph % (Auto) [place] % (Auto) [place] # Seg Neutrophils % Seg Neuts % (Manual) Lymphocytes % (Manual) Monocytes % (Manual) Nucleated RBC % Seg Neutrophils # Seg Neutrophils # Man Lymphocytes # (Manual) Monocytes # (Manual) Eosinophils # (Manual) Basophils # (Manual) PT INR APTT Heparin Anti-Xa Level 0.20 L POC ABG pH POC ABG pCO2 POC ABG pO2 Sodium Potassium Chloride Carbon Dioxide BUN Creatinine Glucose POC Glucose 205 H 339 H Calcium Phosphorus Magnesium AST Alkaline Phosphatase C-Reactive Protein Total Protein Albumin Lipase Vitamin B12 TSH Urine WBC (Auto) Urine Chloride Urine Total Protein Crossmatch 10/29/16 10/29/16 10/29/16 01:05 06:19 09:30 WBC 20.3 H RBC 2.80 L Hgb 8.5 L Hct 26.7 L MCV RDW 15.4 H Plt Count 571 H Lymph % (Auto) [place] % (Auto) [place] # Seg Neutrophils % Seg Neuts % (Manual) 75.0 H Lymphocytes % (Manual) 4.0 L Monocytes % (Manual) Nucleated RBC % Seg Neutrophils # Seg Neutrophils # Man 15.2 H Lymphocytes # (Manual) 0.8 L Monocytes # (Manual) Eosinophils # (Manual) Basophils # (Manual) PT INR APTT Heparin Anti-Xa Level POC ABG pH POC ABG pCO2 POC ABG pO2 Sodium Potassium Chloride Carbon Dioxide BUN Creatinine Glucose POC Glucose 275 H 179 H Calcium Phosphorus Magnesium AST Alkaline Phosphatase C-Reactive Protein Total Protein Albumin Lipase Vitamin B12 TSH Urine WBC (Auto) Urine Chloride Urine Total Protein Crossmatch 10/29/16 10/29/16 10/29/16 11:46 15:18 17:55 WBC RBC Hgb Hct MCV RDW Plt Count Lymph % (Auto) [place] % (Auto) [place] # Seg Neutrophils % Seg Neuts % (Manual) Lymphocytes % (Manual) Monocytes % (Manual) Nucleated RBC % Seg Neutrophils # Seg Neutrophils # Man Lymphocytes # (Manual) Monocytes # (Manual) Eosinophils # (Manual) Basophils # (Manual) PT INR APTT Heparin Anti-Xa Level 1.15 H POC ABG pH POC ABG pCO2 POC ABG pO2 Sodium Potassium Chloride Carbon Dioxide BUN Creatinine Glucose POC Glucose 122 H 255 H Calcium Phosphorus Magnesium AST Alkaline Phosphatase C-Reactive Protein Total Protein Albumin Lipase Vitamin B12 TSH Urine WBC (Auto) Urine Chloride Urine Total Protein Crossmatch 10/30/16 10/30/16 10/30/16 00:10 05:30 05:30 WBC 19.8 H RBC 2.51 L Hgb 7.7 L Hct 24.1 L MCV RDW 15.5 H Plt Count 534 H Lymph % (Auto) [place] % (Auto) [place] # Seg Neutrophils % Seg Neuts % (Manual) Lymphocytes % (Manual) Monocytes % (Manual) Nucleated RBC % Seg Neutrophils # Seg Neutrophils # Man Lymphocytes # (Manual) Monocytes # (Manual) Eosinophils # (Manual) Basophils # (Manual) PT INR APTT Heparin Anti-Xa Level POC ABG pH POC ABG pCO2 POC ABG pO2 Sodium Potassium Chloride Carbon Dioxide BUN Creatinine Glucose 211 H POC Glucose 202 H Calcium 7.4 L Phosphorus Magnesium AST Alkaline Phosphatase C-Reactive Protein Total Protein Albumin Lipase Vitamin B12 TSH Urine WBC (Auto) Urine Chloride Urine Total Protein Crossmatch 10/30/16 10/30/16 10/30/16 06:32 12:51 17:47 WBC RBC Hgb Hct MCV RDW Plt Count Lymph % (Auto) [place] % (Auto) [place] # Seg Neutrophils % Seg Neuts % (Manual) Lymphocytes % (Manual) Monocytes % (Manual) Nucleated RBC % Seg Neutrophils # Seg Neutrophils # Man Lymphocytes # (Manual) Monocytes # (Manual) Eosinophils # (Manual) Basophils # (Manual) PT INR APTT Heparin Anti-Xa Level POC ABG pH POC ABG pCO2 POC ABG pO2 Sodium Potassium Chloride Carbon Dioxide BUN Creatinine Glucose POC Glucose 207 H 218 H 169 H Calcium Phosphorus Magnesium AST Alkaline Phosphatase C-Reactive Protein Total Protein Albumin Lipase Vitamin B12 TSH Urine WBC (Auto) Urine Chloride Urine Total Protein Crossmatch 10/30/16 10/31/16 10/31/16 23:59 05:25 11:21 WBC RBC Hgb Hct MCV RDW Plt Count Lymph % (Auto) [place] % (Auto) [place] # Seg Neutrophils % Seg Neuts % (Manual) Lymphocytes % (Manual) Monocytes % (Manual) Nucleated RBC % Seg Neutrophils # Seg Neutrophils # Man Lymphocytes # (Manual) Monocytes # (Manual) Eosinophils # (Manual) Basophils # (Manual) PT INR APTT Heparin Anti-Xa Level POC ABG pH POC ABG pCO2 POC ABG pO2 Sodium Potassium Chloride Carbon Dioxide BUN Creatinine Glucose POC Glucose 138 H 127 H 132 H Calcium Phosphorus Magnesium AST Alkaline Phosphatase C-Reactive Protein Total Protein Albumin Lipase Vitamin B12 TSH Urine WBC (Auto) Urine Chloride Urine Total Protein Crossmatch 10/31/16 10/31/16 11/01/16 17:07 23:54 06:33 WBC 19.2 H RBC 2.51 L Hgb 7.9 L Hct 24.8 L MCV 99 H D RDW 16.1 H Plt Count 569 H Lymph % (Auto) [place] % (Auto) [place] # Seg Neutrophils % Seg Neuts % (Manual) Lymphocytes % (Manual) Monocytes % (Manual) Nucleated RBC % Seg Neutrophils # Seg Neutrophils # Man Lymphocytes # (Manual) Monocytes # (Manual) Eosinophils # (Manual) Basophils # (Manual) PT INR APTT Heparin Anti-Xa Level POC ABG pH POC ABG pCO2 POC ABG pO2 Sodium Potassium Chloride Carbon Dioxide BUN Creatinine Glucose POC Glucose 138 H 153 H Calcium Phosphorus Magnesium AST Alkaline Phosphatase C-Reactive Protein Total Protein Albumin Lipase Vitamin B12 TSH Urine WBC (Auto) Urine Chloride Urine Total Protein Crossmatch 11/01/16 11/02/16 11/02/16 06:33 00:05 04:15 WBC RBC Hgb Hct MCV RDW Plt Count Lymph % (Auto) [place] % (Auto) [place] # Seg Neutrophils % Seg Neuts % (Manual) Lymphocytes % (Manual) Monocytes % (Manual) Nucleated RBC % Seg Neutrophils # Seg Neutrophils # Man Lymphocytes # (Manual) Monocytes # (Manual) Eosinophils # (Manual) Basophils # (Manual) PT INR APTT Heparin Anti-Xa Level < 0.10 L POC ABG pH POC ABG pCO2 POC ABG pO2 Sodium Potassium 3.5 L 3.2 L Chloride Carbon Dioxide 21 L BUN 6 L Creatinine Glucose 137 H 135 H POC Glucose Calcium 7.7 L 7.5 L Phosphorus Magnesium AST Alkaline Phosphatase 148 H 132 H C-Reactive Protein Total Protein 6.2 L 6.2 L Albumin 2.0 L 1.8 L Lipase Vitamin B12 TSH Urine WBC (Auto) Urine Chloride Urine Total Protein Crossmatch 11/02/16 11/03/16 11/03/16 04:15 00:05 00:05 WBC 17.7 H RBC 2.43 L Hgb 7.6 L Hct 23.5 L MCV RDW 15.9 H Plt Count 502 H Lymph % (Auto) [place] % (Auto) [place] # Seg Neutrophils % Seg Neuts % (Manual) 84.0 H Lymphocytes % (Manual) 11.0 L Monocytes % (Manual) Nucleated RBC % 1.0 H Seg Neutrophils # Seg Neutrophils # Man 14.9 H Lymphocytes # (Manual) Monocytes # (Manual) Eosinophils # (Manual) Basophils # (Manual) PT INR APTT Heparin Anti-Xa Level POC ABG pH POC ABG pCO2 POC ABG pO2 Sodium Potassium Chloride Carbon Dioxide 20 L BUN 5 L Creatinine Glucose 139 H POC Glucose Calcium 6.7 L Phosphorus Magnesium 1.2 L AST Alkaline Phosphatase C-Reactive Protein Total Protein Albumin Lipase Vitamin B12 TSH Urine WBC (Auto) Urine Chloride Urine Total Protein Crossmatch 11/03/16 11/03/16 11/03/16 00:05 02:05 04:23 WBC 15.9 H 14.0 H RBC 1.93 L 2.38 L Hgb 5.9 L* 7.3 L Hct 18.9 L* 23.1 L MCV 98 H RDW 15.9 H 15.9 H Plt Count Lymph % (Auto) [place] % (Auto) [place] # Seg Neutrophils % Seg Neuts % (Manual) 85.0 H Lymphocytes % (Manual) 4.0 L Monocytes % (Manual) Nucleated RBC % Seg Neutrophils # Seg Neutrophils # Man 13.5 H Lymphocytes # (Manual) 0.6 L Monocytes # (Manual) Eosinophils # (Manual) Basophils # (Manual) PT INR APTT Heparin Anti-Xa Level POC ABG pH POC ABG pCO2 POC ABG pO2 Sodium Potassium Chloride Carbon Dioxide BUN 5 L Creatinine Glucose 127 H POC Glucose Calcium 7.2 L Phosphorus Magnesium AST Alkaline Phosphatase C-Reactive Protein Total Protein 5.8 L Albumin 1.5 L Lipase Vitamin B12 TSH Urine WBC (Auto) Urine Chloride Urine Total Protein Crossmatch 11/03/16 11/03/16 11/03/16 09:14 09:27 18:01 WBC RBC Hgb Hct MCV RDW Plt Count Lymph % (Auto) [place] % (Auto) [place] # Seg Neutrophils % Seg Neuts % (Manual) Lymphocytes % (Manual) Monocytes % (Manual) Nucleated RBC % Seg Neutrophils # Seg Neutrophils # Man Lymphocytes # (Manual) Monocytes # (Manual) Eosinophils # (Manual) Basophils # (Manual) PT INR APTT Heparin Anti-Xa Level 0.11 L 2.00 H POC ABG pH POC ABG pCO2 POC ABG pO2 Sodium Potassium Chloride Carbon Dioxide BUN 5 L Creatinine Glucose 111 H POC Glucose Calcium 6.7 L Phosphorus Magnesium AST Alkaline Phosphatase C-Reactive Protein Total Protein Albumin Lipase Vitamin B12 TSH Urine WBC (Auto) Urine Chloride Urine Total Protein Crossmatch 11/03/16 11/04/16 11/04/16 18:01 02:15 02:15 WBC 11.8 H RBC 2.39 L Hgb 7.4 L Hct 23.1 L MCV RDW 15.9 H Plt Count Lymph % (Auto) [place] % (Auto) [place] # Seg Neutrophils % Seg Neuts % (Manual) 76.0 H Lymphocytes % (Manual) 12.0 L Monocytes % (Manual) 9.0 H Nucleated RBC % Seg Neutrophils # Seg Neutrophils # Man 9.0 H Lymphocytes # (Manual) Monocytes # (Manual) 1.1 H Eosinophils # (Manual) Basophils # (Manual) PT INR APTT Heparin Anti-Xa Level POC ABG pH POC ABG pCO2 POC ABG pO2 Sodium Potassium Chloride Carbon Dioxide 21 L BUN 5 L Creatinine Glucose 112 H POC Glucose Calcium 6.8 L Phosphorus Magnesium AST Alkaline Phosphatase C-Reactive Protein Total Protein 5.7 L Albumin 1.7 L Lipase Vitamin B12 TSH Urine WBC (Auto) Urine Chloride Urine Total Protein Crossmatch See Detail 11/04/16 06:35 WBC RBC Hgb Hct MCV RDW Plt Count Lymph % (Auto) [place] % (Auto) [place] # Seg Neutrophils % Seg Neuts % (Manual) Lymphocytes % (Manual) Monocytes % (Manual) Nucleated RBC % Seg Neutrophils # Seg Neutrophils # Man Lymphocytes # (Manual) Monocytes # (Manual) Eosinophils # (Manual) Basophils # (Manual) PT INR APTT Heparin Anti-Xa Level < 0.10 L POC ABG pH POC ABG pCO2 POC ABG pO2 Sodium Potassium Chloride Carbon Dioxide BUN Creatinine Glucose POC Glucose Calcium Phosphorus Magnesium AST Alkaline Phosphatase C-Reactive Protein Total Protein Albumin Lipase Vitamin B12 TSH Urine WBC (Auto) Urine Chloride Urine Total Protein Crossmatch Allied health notes reviewed: RT
[2016-11-04] MEDS: LOPRESSOR FEEDTUBE SCH ×3 (09:19→22:42)
[2016-11-04] MEDS: PEPCID PO SCH ×2 (09:20→22:42)
--- NOTE | 2016-11-04 10:07 | XRay Report ---
AP CHEST: HISTORY: Tracheostomy placement, shortness of breath The tracheostomy and right arm PICC appear in good position. AP view of the chest demonstrates a normal mediastinal and cardiac contour with clear lungs and normal bony and soft tissue structures. Mild pulmonary venous congestion has resolved since 11/02/16. IMPRESSION: Unremarkable AP chest.
--- NOTE | 2016-11-04 11:14 | Progress Note ---
Assessment and Plan 1. Acute respiratory failure with hypercapnia: Vent supported. s/p Trach and PEG. Continue with bronchodilators and wean as tolerated. 2. Diabetes: Sliding scale insulin 3. Sepsis- Leukocytosis Improving Suspected due to UTI, urine has only grown Paula, sputum cultures grew group B strep, continue broad-spectrum antibiotics, infectious disease input appreciated 4. 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 For BKA tomorrow 11/05/16. Right LE not salvageable discussed with Pt's who said that the vascular surgeons had agreed to do a BKA as he was willing to go with whatever choice they decide on 5. Hypokalemia: Supplement potassium further 6. Toxic metabolic encephalopathy- improving. 7. Tachycardia- continue BB will add cardizem, if no improvement will add cardiology consultation 8. Anemia: Multifactorial including sepsis. Transfuse 2 more units of PRBC in preparation of surgery tomorrow Subjective Date of service: 11/04/16 Principal diagnosis: respiratory failure on mechanical ventilatory support, DKA Interval history: Remains intubated. Had Trach and PEG Objective - Constitutional Vitals: Vital Signs - 12hr 11/04/16 11/04/16 11/04/16 00:00 01:00 02:00 Temperature 100.9 F H Pulse Rate 89 85 79 Pulse Rate [ Apical] Respiratory 12 19 18 Rate Blood Pressure 122/58 122/60 104/50 O2 Sat by Pulse 100 100 98 Oximetry O2 Sat by Pulse Oximetry [ Assessment] 11/04/16 11/04/16 11/04/16 03:00 04:00 05:00 Temperature 100.6 F H Pulse Rate 78 72 70 Pulse Rate [ Apical] Respiratory 18 18 18 Rate Blood Pressure 110/54 114/55 114/57 O2 Sat by Pulse 99 100 Oximetry O2 Sat by Pulse Oximetry [ Assessment] 11/04/16 11/04/16 11/04/16 05:47 06:00 07:00 Temperature Pulse Rate 86 74 70 Pulse Rate [ Apical] Respiratory 16 16 Rate Blood Pressure 114/57 108/52 107/53 O2 Sat by Pulse 100 98 100 Oximetry O2 Sat by Pulse Oximetry [ Assessment] 11/04/16 11/04/16 11/04/16 08:00 08:05 09:00 Temperature 98.6 F Pulse Rate 79 89 Pulse Rate [ 84 Apical] Respiratory 15 15 Rate Blood Pressure 106/53 124/67 O2 Sat by Pulse 100 100 Oximetry O2 Sat by Pulse 99 Oximetry [ Assessment] 11/04/16 11/04/16 09:19 10:00 Temperature Pulse Rate 89 Pulse Rate [ Apical] Respiratory 22 Rate Blood Pressure 124/67 O2 Sat by Pulse Oximetry O2 Sat by Pulse Oximetry [ Assessment] General appearance: Present: no acute distress, well-nourished, obese - EENT Eyes: PERRL, EOM intact ENT: hearing intact, clear oral mucosa - Neck Neck: supple, normal ROM - Respiratory Respiratory effort: normal Respiratory: bilateral: diminished - Cardiovascular Rhythm: regular Heart Sounds: Present: S1 & S2. Absent: gallop, rub Extremities: pulses intact, No edema, normal color, Full ROM - Gastrointestinal General gastrointestinal: Present: soft, non-tender, non-distended, normal bowel sounds - Integumentary Integumentary: clear, warm, dry - Musculoskeletal Musculoskeletal: 1, strength equal bilaterally - Neurologic Neurologic: moves all extremities - Psychiatric Psychiatric: memory intact, appropriate mood/affect, intact judgment & insight - Labs CBC & Chem 7: 11/04/16 02:15 11/04/16 02:15 Labs: Abnormal lab results 11/03/16 11/03/16 11/04/16 Range/Units 18:01 18:01 02:15 WBC (4.5-11.0) K/mm3 RBC (3.65-5.03) M/mm3 Hgb (10.1-14.3) gm/dl Hct (30.3-42.9) % RDW (13.2-15.2) % Seg Neuts % (Manual) (40.0-70.0) % Lymphocytes % (Manual) (13.4-35.0) % Monocytes % (Manual) (0.0-7.3) % Seg Neutrophils # Man (1.8-7.7) K/mm3 Monocytes # (Manual) (0.0-0.8) K/mm3 Heparin Anti-Xa Level 2.00 H (0.3-0.7) U.I./ml Carbon Dioxide 21 L (22-30) mmol/L BUN 5 L (7-17) mg/dL Glucose 112 H (65-100) mg/dL Calcium 6.8 L (8.4-10.2) mg/dL Total Protein 5.7 L (6.3-8.2) g/dL Albumin 1.7 L (3.9-5) g/dL Crossmatch See Detail 11/04/16 11/04/16 Range/Units 02:15 06:35 WBC 11.8 H (4.5-11.0) K/mm3 RBC 2.39 L (3.65-5.03) M/mm3 Hgb 7.4 L (10.1-14.3) gm/dl Hct 23.1 L (30.3-42.9) % RDW 15.9 H (13.2-15.2) % Seg Neuts % (Manual) 76.0 H (40.0-70.0) % Lymphocytes % (Manual) 12.0 L (13.4-35.0) % Monocytes % (Manual) 9.0 H (0.0-7.3) % Seg Neutrophils # Man 9.0 H (1.8-7.7) K/mm3 Monocytes # (Manual) 1.1 H (0.0-0.8) K/mm3 Heparin Anti-Xa Level < 0.10 L (0.3-0.7) U.I./ml Carbon Dioxide (22-30) mmol/L BUN (7-17) mg/dL Glucose (65-100) mg/dL Calcium (8.4-10.2) mg/dL Total Protein (6.3-8.2) g/dL Albumin (3.9-5) g/dL Crossmatch
[2016-11-04] MEDS ORDERED: NACL 0.9% 500 ML 500 ML IV ONE (11:15)
--- NOTE | 2016-11-04 11:40 | Progress Note ---
Assessment and Plan The patient will be scheduled for right lower extremity revascularization procedure tomorrow to be followed by a right [id number] amputation on Saturday. Subjective Date of service: 11/04/16 Principal diagnosis: respiratory failure on mechanical ventilatory support, DKA Interval history: Patient appears more alert today. Breathing trials underway. Discussed family' s decision with patient's (not technically ) and patient's daughter who is the power of tax associate attorney. The family has decided for a revascularization procedure on Saturday to be followed by a [id number] amputation on Saturday. Patient's right leg is stable in appearance with gangrenous changes involving the foot and ankle and a clearline of demarcation in the lower leg. Objective - Constitutional Vitals: Vital Signs - 12hr 11/04/16 11/04/16 11/04/16 00:00 01:00 02:00 Temperature 100.9 F H Pulse Rate 89 85 79 Pulse Rate [ Apical] Respiratory 12 19 18 Rate Blood Pressure 122/58 122/60 104/50 O2 Sat by Pulse 100 100 98 Oximetry O2 Sat by Pulse Oximetry [ Assessment] 11/04/16 11/04/16 11/04/16 03:00 04:00 05:00 Temperature 100.6 F H Pulse Rate 78 72 70 Pulse Rate [ Apical] Respiratory 18 18 18 Rate Blood Pressure 110/54 114/55 114/57 O2 Sat by Pulse 99 100 Oximetry O2 Sat by Pulse Oximetry [ Assessment] 11/04/16 11/04/16 11/04/16 05:47 06:00 07:00 Temperature Pulse Rate 86 74 70 Pulse Rate [ Apical] Respiratory 16 16 Rate Blood Pressure 114/57 108/52 107/53 O2 Sat by Pulse 100 98 100 Oximetry O2 Sat by Pulse Oximetry [ Assessment] 11/04/16 11/04/16 11/04/16 08:00 08:05 09:00 Temperature 98.6 F Pulse Rate 79 89 Pulse Rate [ 84 Apical] Respiratory 15 15 Rate Blood Pressure 106/53 124/67 O2 Sat by Pulse 100 100 Oximetry O2 Sat by Pulse 99 Oximetry [ Assessment] 11/04/16 11/04/16 09:19 10:00 Temperature Pulse Rate 89 Pulse Rate [ Apical] Respiratory 22 Rate Blood Pressure 124/67 O2 Sat by Pulse Oximetry O2 Sat by Pulse Oximetry [ Assessment] General appearance: Present: no acute distress - EENT Eyes: EOM intact - Neck Neck: other (s/ptrach) - Respiratory Respiratory effort: other (vent) - Breasts Breasts: deferred Extremity abnormal: black, cold (foot and ankle) - Gastrointestinal General gastrointestinal: Present: deferred Rectal Exam: deferred - Labs CBC & Chem 7: 11/04/16 02:15 11/04/16 02:15 Labs: Abnormal lab results 11/03/16 11/03/16 11/04/16 Range/Units 18:01 18:01 02:15 WBC (4.5-11.0) K/mm3 RBC (3.65-5.03) M/mm3 Hgb (10.1-14.3) gm/dl Hct (30.3-42.9) % RDW (13.2-15.2) % Seg Neuts % (Manual) (40.0-70.0) % Lymphocytes % (Manual) (13.4-35.0) % Monocytes % (Manual) (0.0-7.3) % Seg Neutrophils # Man (1.8-7.7) K/mm3 Monocytes # (Manual) (0.0-0.8) K/mm3 Heparin Anti-Xa Level 2.00 H (0.3-0.7) U.I./ml Carbon Dioxide 21 L (22-30) mmol/L BUN 5 L (7-17) mg/dL Glucose 112 H (65-100) mg/dL Calcium 6.8 L (8.4-10.2) mg/dL Total Protein 5.7 L (6.3-8.2) g/dL Albumin 1.7 L (3.9-5) g/dL Crossmatch See Detail 11/04/16 11/04/16 Range/Units 02:15 06:35 WBC 11.8 H (4.5-11.0) K/mm3 RBC 2.39 L (3.65-5.03) M/mm3 Hgb 7.4 L (10.1-14.3) gm/dl Hct 23.1 L (30.3-42.9) % RDW 15.9 H (13.2-15.2) % Seg Neuts % (Manual) 76.0 H (40.0-70.0) % Lymphocytes % (Manual) 12.0 L (13.4-35.0) % Monocytes % (Manual) 9.0 H (0.0-7.3) % Seg Neutrophils # Man 9.0 H (1.8-7.7) K/mm3 Monocytes # (Manual) 1.1 H (0.0-0.8) K/mm3 Heparin Anti-Xa Level < 0.10 L (0.3-0.7) U.I./ml Carbon Dioxide (22-30) mmol/L BUN (7-17) mg/dL Glucose (65-100) mg/dL Calcium (8.4-10.2) mg/dL Total Protein (6.3-8.2) g/dL Albumin (3.9-5) g/dL Crossmatch
--- NOTE | 2016-11-04 19:17 | Progress Note ---
Subjective Date of service: 11/04/16 Principal diagnosis: respiratory failure on mechanical ventilatory support, DKA Interval history: AWAKE. FEVER. Vital signs - Temp 100.4 CHEST - GOOD AIR ENTRY CVS - S1S2 ABD - BS_ LABS See lab section. ASSESSMENT 1. Sepsis 2. dka 3. resp failure 4. htn 5. clostridium difficile colitis 6. bilateral pneumonia 6. RIGHT LEG GANGRENE. RECOMMENDATION 1. cbc/bmp in am 2. Fever likely related to right foot gangrene. Evaluation for either a bka or aka in progress with involvement of family who wants to think over it over the weekend. 3. continue current care. 4. will add vancomycin Objective - Constitutional Vitals: Vital Signs Temp Pulse Resp BP Pulse Ox 100.6 F H 88 25 H 148/77 100 11/04/16 16:23 11/04/16 18:00 11/04/16 18:00 11/04/16 18:00 11/04/16 18:00 Temperature -Last 24 Hours Temperature 100.6 F Temperature 100.6 F Temperature 100.5 F Temperature 100.4 F Temperature 100.6 F Temperature 100.7 F Temperature 100.7 F Temperature 100.4 F Temperature 100.4 F Temperature 98.6 F Temperature 100.6 F Temperature 100.9 F Temperature 101.1 F - Labs CBC & Chem 7: 11/04/16 02:15 11/04/16 02:15 Labs: Abnormal lab results 10/22/16 11/03/16 11/03/16 Range/Units 20:00 18:01 18:01 WBC (4.5-11.0) K/mm3 RBC (3.65-5.03) M/mm3 Hgb (10.1-14.3) gm/dl Hct (30.3-42.9) % RDW (13.2-15.2) % Seg Neuts % (Manual) (40.0-70.0) % Lymphocytes % (Manual) (13.4-35.0) % Monocytes % (Manual) (0.0-7.3) % Seg Neutrophils # Man (1.8-7.7) K/mm3 Monocytes # (Manual) (0.0-0.8) K/mm3 Heparin Anti-Xa Level 2.00 H (0.3-0.7) U.I./ml Carbon Dioxide (22-30) mmol/L BUN (7-17) mg/dL Glucose (65-100) mg/dL Calcium (8.4-10.2) mg/dL Total Protein (6.3-8.2) g/dL Albumin (3.9-5) g/dL Crossmatch See Detail See Detail 11/04/16 11/04/16 11/04/16 Range/Units 02:15 02:15 06:35 WBC 11.8 H (4.5-11.0) K/mm3 RBC 2.39 L (3.65-5.03) M/mm3 Hgb 7.4 L (10.1-14.3) gm/dl Hct 23.1 L (30.3-42.9) % RDW 15.9 H (13.2-15.2) % Seg Neuts % (Manual) 76.0 H (40.0-70.0) % Lymphocytes % (Manual) 12.0 L (13.4-35.0) % Monocytes % (Manual) 9.0 H (0.0-7.3) % Seg Neutrophils # Man 9.0 H (1.8-7.7) K/mm3 Monocytes # (Manual) 1.1 H (0.0-0.8) K/mm3 Heparin Anti-Xa Level < 0.10 L (0.3-0.7) U.I./ml Carbon Dioxide 21 L (22-30) mmol/L BUN 5 L (7-17) mg/dL Glucose 112 H (65-100) mg/dL Calcium 6.8 L (8.4-10.2) mg/dL Total Protein 5.7 L (6.3-8.2) g/dL Albumin 1.7 L (3.9-5) g/dL Crossmatch 11/04/16 Range/Units 15:04 WBC (4.5-11.0) K/mm3 RBC (3.65-5.03) M/mm3 Hgb (10.1-14.3) gm/dl Hct (30.3-42.9) % RDW (13.2-15.2) % Seg Neuts % (Manual) (40.0-70.0) % Lymphocytes % (Manual) (13.4-35.0) % Monocytes % (Manual) (0.0-7.3) % Seg Neutrophils # Man (1.8-7.7) K/mm3 Monocytes # (Manual) (0.0-0.8) K/mm3 Heparin Anti-Xa Level 1.05 H (0.3-0.7) U.I./ml Carbon Dioxide (22-30) mmol/L BUN (7-17) mg/dL Glucose (65-100) mg/dL Calcium (8.4-10.2) mg/dL Total Protein (6.3-8.2) g/dL Albumin (3.9-5) g/dL Crossmatch
[2016-11-04] MEDS ORDERED: VANCOMYCIN PHARMACY TO DOSE IV SCH (20:00)
[2016-11-04] MEDS: LEVAQUIN 750MG/150ML 750 MG/150 ML BAG IV SCH (21:24)
[2016-11-04] MEDS: VANCOMYCIN VIAL 1,500 MG in NACL 0.9% 500 ML 500 ML IV SCH (21:45)
[2016-11-04] MEDS: fentaNYL DRIP Premix 2,000 MCG/100 ML BAG IV SCH (23:26)
[2016-11-05 02:39] LABS: Hematocrit 35.4 % (30.3-42.9); Hemoglobin 11.4 gm/dl (10.1-14.3); Mean Corpuscular HGB Conc 32 % (30-34); Mean Corpuscular Hemoglobin 30 pg (28-32); Mean Corpuscular Volume 94 fl (79-97); Platelet Count 376 K/mm3 (140-440); Red Blood Count 3.77 M/mm3 (3.65-5.03); Red Cell Distribution Width 16.7 % (13.2-15.2); White Blood Count 14.1 K/mm3 (4.5-11.0)
[2016-11-05 03:09] LABS: Alanine Aminotransferase 11 units/L (7-56); Albumin 1.9 g/dL (3.9-5); Albumin/Globulin Ratio 0.4 %; Alkaline Phosphatase 119 units/L (35-129); Anion Gap 20 mmol/L; BUN/Creatinine Ratio 8.33; Bilirubin,Total 0.3 mg/dL (0.1-1.2); Blood Urea Nitrogen 5 mg/dL (7-17); Calcium 7.1 mg/dL (8.4-10.2); Carbon Dioxide 18 mmol/L (22-30); Chloride 105.7 mmol/L (98-107); Glucose 110 mg/dL (65-100); Potassium 3.5 mmol/L (3.6-5.0); Sodium 140 mmol/L (137-145); Total Protein 6.7 g/dL (6.3-8.2)
[2016-11-05 05:23] LABS: Basophils % (Manual) 0 % (0.0-1.8); Blastocytes % (Manual) 0 %; Eosinophils % (Manual) 0 % (0.0-4.3)
[2016-11-05 05:24] LABS: Anisocytosis 1+; Diff Status Complete; Polychromasia Few
[2016-11-05] MEDS: LOPRESSOR FEEDTUBE SCH ×3 (06:00→22:04)
[2016-11-05] MEDS: HEPARIN/ 0.45% NACL-25,000 UNIT/500 ML 25,000 UNITS/500 ML BAG IV SCH (08:28)
[2016-11-05] MEDS: fentaNYL DRIP Premix 2,000 MCG/100 ML BAG IV SCH ×3 (08:50→20:05)
[2016-11-05] MEDS: PEPCID PO SCH ×2 (09:35→22:03)
[2016-11-05] MEDS ORDERED: POTASSIUM CHLORIDE FEEDTUBE ONE (10:00)
[2016-11-05 10:18] LABS: ISTAT Base Excess -4; ISTAT HCO3 20.6; ISTAT PCO2 33.7 (35-45); ISTAT PH 7.394 (7.35-7.45); ISTAT PO2 60 (80-105); ISTAT SO2 91; ISTAT TCO2 22
[2016-11-05] MEDS ORDERED: XYLOCAINE 1%/ EPI 1:100,000 INFILTRATI ONE (10:33)
[2016-11-05] MEDS ORDERED: HEPARIN/NS 5000 UNIT/500ML(CATH LAB) 1,000 ML IR ONE (10:33)
[2016-11-05] MEDS ORDERED: VANCOMYCIN/NS 1 GM/250 ML 0 GM/0 ML BAG IV ONE (10:33)
[2016-11-05] MEDS ORDERED: HEPARIN 10,000 UNITS/10 ML ONE (10:33)
--- NOTE | 2016-11-05 10:44 | Progress Note ---
Assessment and Plan - Patient Problems (1) Acute respiratory failure with hypercapnia Current Visit: Yes Status: Acute Plan to address problem: - continue aspiration precautions / VAP bundles - continue bronchodilators and pulmonary toilet - wean oxygen to keep sats > 94% - will resume graded weaning at Psupp of 20 cmH2O 0post operative interventions (2) Altered mental status Current Visit: Yes Status: Acute Qualifiers: Altered mental status type: A Coma depth: C Coma timing: C Plan to address problem: - no active seizures - following clinically - seen by neurology and will follow their recommendations - no seizures on EEG (3) LUCY (acute kidney injury) Current Visit: Yes Status: Acute Plan to address problem: - resolved - follow I's & O's (4) DKA (diabetic ketoacidoses) Current Visit: Yes Status: Acute Qualifiers: Diabetes mellitus type: D Diabetes mellitus complication detail: D Plan to address problem: - resolved - continue SSI (5) Sepsis Current Visit: No Status: Acute Qualifiers: Sepsis type: S Plan to address problem: - continue anti-infectives per ID recs - follow clinically - trend lactate and CRP prn (6) Discharge planning issues Current Visit: No Status: Acute Plan to address problem: ...remains critically ill on life sustaining treatments including MVS and at high risk for further deterioration including ...30' CCT Subjective Date of service: 11/05/16 Principal diagnosis: respiratory failure on mechanical ventilatory support, DKA Interval history: Seen and examined at bedside; 24 hour events reviewed; nursing and respiratory care staff consulted; no adverse overnight events reported to me; for revascularization procedure; no emesis or overt aspiration and no gross bleeding Objective Vital Signs - 12hr 11/04/16 11/04/16 11/04/16 22:55 23:00 23:06 Temperature 100.9 F H Pulse Rate 93 H 96 H Respiratory 32 H Rate Blood Pressure 136/75 138/72 O2 Sat by Pulse 100 99 Oximetry O2 Sat by Pulse 100 Oximetry [ Assessment] 11/04/16 11/05/16 11/05/16 23:20 00:00 01:00 Temperature 100.6 F H 97.8 F Pulse Rate 87 88 93 H Respiratory 29 H 21 20 Rate Blood Pressure 136/75 131/56 153/82 O2 Sat by Pulse 100 100 100 Oximetry O2 Sat by Pulse Oximetry [ Assessment] 11/05/16 11/05/16 11/05/16 02:00 02:24 03:00 Temperature Pulse Rate 93 H 101 H 93 H Respiratory 17 16 Rate Blood Pressure 154/84 154/84 139/65 O2 Sat by Pulse 100 98 97 Oximetry O2 Sat by Pulse Oximetry [ Assessment] 11/05/16 11/05/16 11/05/16 04:00 05:00 06:00 Temperature 97.8 F Pulse Rate 88 95 H 101 H Respiratory 17 10 L 18 Rate Blood Pressure 138/75 138/75 153/74 O2 Sat by Pulse 97 98 Oximetry O2 Sat by Pulse Oximetry [ Assessment] 11/05/16 11/05/16 11/05/16 07:00 07:28 07:47 Temperature Pulse Rate 89 88 Respiratory 16 19 Rate Blood Pressure 119/58 119/58 O2 Sat by Pulse 98 99 Oximetry O2 Sat by Pulse Oximetry [ Assessment] 11/05/16 11/05/16 11/05/16 07:53 07:55 08:00 Temperature 99.3 F Pulse Rate 87 Respiratory 17 Rate Blood Pressure 130/64 O2 Sat by Pulse 97 Oximetry O2 Sat by Pulse 97 Oximetry [ Assessment] 11/05/16 09:00 Temperature Pulse Rate 98 H Respiratory 24 Rate Blood Pressure 133/73 O2 Sat by Pulse 97 Oximetry O2 Sat by Pulse Oximetry [ Assessment] Constitutional: no acute distress, other (? delirium / dementia element) Eyes: non-icteric ENT: oropharynx moist Neck: supple, no lymphadenopathy Effort: mildly labored Ascultation: Bilateral: diminished breath sounds, rales (bases) Cardiovascular: regular rate and rhythm, other (tachycardia) Gastrointestinal: normoactive bowel sounds, soft, non-tender, non-distended Integumentary: normal Extremities: no cyanosis, no edema, no ischemia or petechiae, other (cold right foot with digital ischemia) Neurologic: non-focal exam (grossly), unable to assess Psychiatric: other (sedated) CBC and BMP: 11/07/16 Unknown 11/07/16 Unknown ABG, PT/INR, D-dimer: ABG POC ABG pH 7.394 (7.35-7.45) 11/04/16 12:58 POC ABG pCO2 33.7 (35-45) L 11/04/16 12:58 POC ABG pO2 60 (80-105) L 11/04/16 12:58 POC ABG HCO3 20.6 11/04/16 12:58 POC ABG Total CO2 22 11/04/16 12:58 POC ABG O2 Sat 91 11/04/16 12:58 PT/INR, D-dimer PT 16.4 Sec. (12.2-14.9) H 10/17/16 16:07 INR 1.33 (0.87-1.13) H 10/17/16 16:07 Abnormal lab findings: Abnormal Labs 10/13/16 10/13/16 10/13/16 06:38 06:38 07:23 WBC RBC Hgb Hct MCV RDW Plt Count Lymph % (Auto) Kendall % (Auto) Kendall # Seg Neutrophils % Seg Neuts % (Manual) Lymphocytes % (Manual) Monocytes % (Manual) Nucleated RBC % Seg Neutrophils # Seg Neutrophils # Man Lymphocytes # (Manual) Monocytes # (Manual) Eosinophils # (Manual) Basophils # (Manual) PT INR APTT Heparin Anti-Xa Level POC ABG pH POC ABG pCO2 POC ABG pO2 Sodium Potassium 6.2 H* Chloride Carbon Dioxide 8 L* BUN 85 H Creatinine 2.8 H Glucose 602 H* POC Glucose 495 H Calcium 7.9 L Phosphorus 6.9 H D Magnesium 3.0 H AST Alkaline Phosphatase C-Reactive Protein Total Protein Albumin Lipase Vitamin B12 TSH Urine WBC (Auto) Urine Chloride Urine Total Protein Crossmatch 10/13/16 10/13/16 10/13/16 08:49 08:55 10:12 WBC RBC Hgb Hct MCV RDW Plt Count Lymph % (Auto) [place] % (Auto) [place] # Seg Neutrophils % Seg Neuts % (Manual) Lymphocytes % (Manual) Monocytes % (Manual) Nucleated RBC % Seg Neutrophils # Seg Neutrophils # Man Lymphocytes # (Manual) Monocytes # (Manual) Eosinophils # (Manual) Basophils # (Manual) PT INR APTT Heparin Anti-Xa Level POC ABG pH POC ABG pCO2 POC ABG pO2 Sodium Potassium 5.6 H Chloride Carbon Dioxide 11 L BUN 77 H Creatinine 2.7 H Glucose 457 H POC Glucose > 500 H 424 H Calcium 8.0 L Phosphorus Magnesium AST Alkaline Phosphatase C-Reactive Protein Total Protein Albumin Lipase Vitamin B12 TSH Urine WBC (Auto) Urine Chloride Urine Total Protein Crossmatch 10/13/16 10/13/16 10/13/16 10:44 11:22 12:20 WBC RBC Hgb Hct MCV RDW Plt Count Lymph % (Auto) [place] % (Auto) [place] # Seg Neutrophils % Seg Neuts % (Manual) Lymphocytes % (Manual) Monocytes % (Manual) Nucleated RBC % Seg Neutrophils # Seg Neutrophils # Man Lymphocytes # (Manual) Monocytes # (Manual) Eosinophils # (Manual) Basophils # (Manual) PT INR APTT Heparin Anti-Xa Level POC ABG pH POC ABG pCO2 POC ABG pO2 Sodium Potassium 5.4 H Chloride Carbon Dioxide 14 L BUN 72 H Creatinine 2.6 H Glucose 383 H POC Glucose 391 H 313 H Calcium 8.2 L Phosphorus Magnesium AST Alkaline Phosphatase C-Reactive Protein Total Protein Albumin Lipase Vitamin B12 TSH Urine WBC (Auto) Urine Chloride Urine Total Protein Crossmatch 10/13/16 10/13/16 10/13/16 13:32 14:44 15:57 WBC RBC Hgb Hct MCV RDW Plt Count Lymph % (Auto) [place] % (Auto) [place] # Seg Neutrophils % Seg Neuts % (Manual) Lymphocytes % (Manual) Monocytes % (Manual) Nucleated RBC % Seg Neutrophils # Seg Neutrophils # Man Lymphocytes # (Manual) Monocytes # (Manual) Eosinophils # (Manual) Basophils # (Manual) PT INR APTT Heparin Anti-Xa Level POC ABG pH POC ABG pCO2 POC ABG pO2 Sodium Potassium Chloride Carbon Dioxide BUN Creatinine Glucose POC Glucose 296 H 210 H 190 H Calcium Phosphorus Magnesium AST Alkaline Phosphatase C-Reactive Protein Total Protein Albumin Lipase Vitamin B12 TSH Urine WBC (Auto) Urine Chloride Urine Total Protein Crossmatch 10/13/16 10/13/16 10/13/16 16:14 16:14 17:17 WBC RBC Hgb Hct MCV RDW Plt Count Lymph % (Auto) [place] % (Auto) [place] # Seg Neutrophils % Seg Neuts % (Manual) Lymphocytes % (Manual) Monocytes % (Manual) Nucleated RBC % Seg Neutrophils # Seg Neutrophils # Man Lymphocytes # (Manual) Monocytes # (Manual) Eosinophils # (Manual) Basophils # (Manual) PT INR APTT Heparin Anti-Xa Level POC ABG pH POC ABG pCO2 POC ABG pO2 Sodium Potassium Chloride Carbon Dioxide 17 L BUN 58 H Creatinine 1.8 H Glucose 172 H POC Glucose 193 H Calcium 7.7 L Phosphorus Magnesium AST Alkaline Phosphatase C-Reactive Protein 10.50 H Total Protein Albumin Lipase Vitamin B12 TSH Urine WBC (Auto) Urine Chloride Urine Total Protein Crossmatch 10/13/16 10/13/16 10/13/16 17:55 18:32 19:41 WBC RBC Hgb Hct MCV RDW Plt Count Lymph % (Auto) [place] % (Auto) [place] # Seg Neutrophils % Seg Neuts % (Manual) Lymphocytes % (Manual) Monocytes % (Manual) Nucleated RBC % Seg Neutrophils # Seg Neutrophils # Man Lymphocytes # (Manual) Monocytes # (Manual) Eosinophils # (Manual) Basophils # (Manual) PT INR APTT Heparin Anti-Xa Level POC ABG pH POC ABG pCO2 30.6 L POC ABG pO2 218 H Sodium Potassium Chloride Carbon Dioxide BUN Creatinine Glucose POC Glucose 192 H 177 H Calcium Phosphorus Magnesium AST Alkaline Phosphatase C-Reactive Protein Total Protein Albumin Lipase Vitamin B12 TSH Urine WBC (Auto) Urine Chloride Urine Total Protein Crossmatch 10/13/16 10/13/16 10/13/16 20:54 22:07 23:13 WBC RBC Hgb Hct MCV RDW Plt Count Lymph % (Auto) [place] % (Auto) [place] # Seg Neutrophils % Seg Neuts % (Manual) Lymphocytes % (Manual) Monocytes % (Manual) Nucleated RBC % Seg Neutrophils # Seg Neutrophils # Man Lymphocytes # (Manual) Monocytes # (Manual) Eosinophils # (Manual) Basophils # (Manual) PT INR APTT Heparin Anti-Xa Level POC ABG pH POC ABG pCO2 POC ABG pO2 Sodium Potassium Chloride Carbon Dioxide BUN Creatinine Glucose POC Glucose 178 H 160 H 168 H Calcium Phosphorus Magnesium AST Alkaline Phosphatase C-Reactive Protein Total Protein Albumin Lipase Vitamin B12 TSH Urine WBC (Auto) Urine Chloride Urine Total Protein Crossmatch 10/13/16 10/13/16 10/14/16 23:25 Unknown 00:21 WBC RBC Hgb Hct MCV RDW Plt Count Lymph % (Auto) [place] % (Auto) [place] # Seg Neutrophils % Seg Neuts % (Manual) Lymphocytes % (Manual) Monocytes % (Manual) Nucleated RBC % Seg Neutrophils # Seg Neutrophils # Man Lymphocytes # (Manual) Monocytes # (Manual) Eosinophils # (Manual) Basophils # (Manual) PT INR APTT Heparin Anti-Xa Level POC ABG pH POC ABG pCO2 POC ABG pO2 Sodium 148 H Potassium Chloride 114.6 H Carbon Dioxide 17 L BUN 56 H Creatinine 1.6 H Glucose 151 H POC Glucose 171 H Calcium 7.8 L Phosphorus Magnesium AST Alkaline Phosphatase C-Reactive Protein Total Protein Albumin Lipase Vitamin B12 TSH Urine WBC (Auto) Urine Chloride 10.0 L Urine Total Protein < 4 L Crossmatch 10/14/16 10/14/16 10/14/16 01:22 02:29 03:30 WBC RBC Hgb Hct MCV RDW Plt Count Lymph % (Auto) [place] % (Auto) [place] # Seg Neutrophils % Seg Neuts % (Manual) Lymphocytes % (Manual) Monocytes % (Manual) Nucleated RBC % Seg Neutrophils # Seg Neutrophils # Man Lymphocytes # (Manual) Monocytes # (Manual) Eosinophils # (Manual) Basophils # (Manual) PT INR APTT Heparin Anti-Xa Level POC ABG pH POC ABG pCO2 POC ABG pO2 Sodium Potassium Chloride Carbon Dioxide BUN Creatinine Glucose POC Glucose 144 H 136 H 143 H Calcium Phosphorus Magnesium AST Alkaline Phosphatase C-Reactive Protein Total Protein Albumin Lipase Vitamin B12 TSH Urine WBC (Auto) Urine Chloride Urine Total Protein Crossmatch 10/14/16 10/14/16 10/14/16 04:28 05:16 05:44 WBC RBC Hgb Hct MCV RDW Plt Count Lymph % (Auto) [place] % (Auto) [place] # Seg Neutrophils % Seg Neuts % (Manual) Lymphocytes % (Manual) Monocytes % (Manual) Nucleated RBC % Seg Neutrophils # Seg Neutrophils # Man Lymphocytes # (Manual) Monocytes # (Manual) Eosinophils # (Manual) Basophils # (Manual) PT INR APTT Heparin Anti-Xa Level POC ABG pH POC ABG pCO2 28.2 L POC ABG pO2 125 H Sodium Potassium Chloride Carbon Dioxide BUN Creatinine Glucose POC Glucose 133 H 160 H Calcium Phosphorus Magnesium AST Alkaline Phosphatase C-Reactive Protein Total Protein Albumin Lipase Vitamin B12 TSH Urine WBC (Auto) Urine Chloride Urine Total Protein Crossmatch 10/14/16 10/14/16 10/14/16 06:12 06:45 07:03 WBC RBC Hgb Hct MCV RDW Plt Count Lymph % (Auto) [place] % (Auto) [place] # Seg Neutrophils % Seg Neuts % (Manual) Lymphocytes % (Manual) Monocytes % (Manual) Nucleated RBC % Seg Neutrophils # Seg Neutrophils # Man Lymphocytes # (Manual) Monocytes # (Manual) Eosinophils # (Manual) Basophils # (Manual) PT INR APTT Heparin Anti-Xa Level POC ABG pH POC ABG pCO2 POC ABG pO2 Sodium 149 H Potassium Chloride 115.4 H Carbon Dioxide 17 L BUN 45 H Creatinine 1.5 H Glucose 139 H POC Glucose 149 H Calcium 7.4 L Phosphorus 1.0 L D Magnesium AST Alkaline Phosphatase C-Reactive Protein Total Protein Albumin Lipase Vitamin B12 TSH Urine WBC (Auto) Urine Chloride Urine Total Protein Crossmatch 10/14/16 10/14/16 10/14/16 07:03 08:02 09:16 WBC RBC Hgb Hct MCV RDW Plt Count Lymph % (Auto) [place] % (Auto) [place] # Seg Neutrophils % Seg Neuts % (Manual) Lymphocytes % (Manual) Monocytes % (Manual) Nucleated RBC % Seg Neutrophils # Seg Neutrophils # Man Lymphocytes # (Manual) Monocytes # (Manual) Eosinophils # (Manual) Basophils # (Manual) PT INR APTT Heparin Anti-Xa Level POC ABG pH POC ABG pCO2 POC ABG pO2 Sodium Potassium Chloride Carbon Dioxide BUN Creatinine Glucose POC Glucose 156 H 158 H Calcium Phosphorus Magnesium AST Alkaline Phosphatase C-Reactive Protein Total Protein Albumin Lipase 738 H Vitamin B12 TSH Urine WBC (Auto) Urine Chloride Urine Total Protein Crossmatch 10/14/16 10/14/16 10/14/16 10:26 11:03 11:57 WBC RBC Hgb Hct MCV RDW Plt Count Lymph % (Auto) [place] % (Auto) [place] # Seg Neutrophils % Seg Neuts % (Manual) Lymphocytes % (Manual) Monocytes % (Manual) Nucleated RBC % Seg Neutrophils # Seg Neutrophils # Man Lymphocytes # (Manual) Monocytes # (Manual) Eosinophils # (Manual) Basophils # (Manual) PT INR APTT Heparin Anti-Xa Level POC ABG pH 7.198 L POC ABG pCO2 47.5 H POC ABG pO2 Sodium Potassium Chloride Carbon Dioxide BUN Creatinine Glucose POC Glucose 174 H 189 H Calcium Phosphorus Magnesium AST Alkaline Phosphatase C-Reactive Protein Total Protein Albumin Lipase Vitamin B12 TSH Urine WBC (Auto) Urine Chloride Urine Total Protein Crossmatch 10/14/16 10/14/16 10/14/16 12:02 12:02 13:11 WBC 13.4 H RBC 3.60 L Hgb Hct MCV 98 H D RDW 13.1 L Plt Count Lymph % (Auto) [place] % (Auto) [place] # Seg Neutrophils % Seg Neuts % (Manual) Lymphocytes % (Manual) Monocytes % (Manual) Nucleated RBC % Seg Neutrophils # Seg Neutrophils # Man Lymphocytes # (Manual) Monocytes # (Manual) Eosinophils # (Manual) Basophils # (Manual) PT INR APTT Heparin Anti-Xa Level POC ABG pH POC ABG pCO2 POC ABG pO2 Sodium Potassium Chloride 110.7 H Carbon Dioxide 19 L BUN 38 H Creatinine 1.4 H Glucose 182 H POC Glucose 173 H Calcium 7.5 L Phosphorus Magnesium AST Alkaline Phosphatase C-Reactive Protein Total Protein Albumin Lipase Vitamin B12 TSH Urine WBC (Auto) Urine Chloride Urine Total Protein Crossmatch 10/14/16 10/14/16 10/14/16 14:24 15:31 16:36 WBC RBC Hgb Hct MCV RDW Plt Count Lymph % (Auto) [place] % (Auto) [place] # Seg Neutrophils % Seg Neuts % (Manual) Lymphocytes % (Manual) Monocytes % (Manual) Nucleated RBC % Seg Neutrophils # Seg Neutrophils # Man Lymphocytes # (Manual) Monocytes # (Manual) Eosinophils # (Manual) Basophils # (Manual) PT INR APTT Heparin Anti-Xa Level POC ABG pH POC ABG pCO2 POC ABG pO2 Sodium Potassium Chloride Carbon Dioxide BUN Creatinine Glucose POC Glucose 123 H 124 H 156 H Calcium Phosphorus Magnesium AST Alkaline Phosphatase C-Reactive Protein Total Protein Albumin Lipase Vitamin B12 TSH Urine WBC (Auto) Urine Chloride Urine Total Protein Crossmatch 10/14/16 10/14/16 10/14/16 17:43 19:00 20:08 WBC RBC Hgb Hct MCV RDW Plt Count Lymph % (Auto) [place] % (Auto) [place] # Seg Neutrophils % Seg Neuts % (Manual) Lymphocytes % (Manual) Monocytes % (Manual) Nucleated RBC % Seg Neutrophils # Seg Neutrophils # Man Lymphocytes # (Manual) Monocytes # (Manual) Eosinophils # (Manual) Basophils # (Manual) PT INR APTT Heparin Anti-Xa Level POC ABG pH POC ABG pCO2 POC ABG pO2 Sodium Potassium Chloride Carbon Dioxide BUN Creatinine Glucose POC Glucose 154 H 123 H 138 H Calcium Phosphorus Magnesium AST Alkaline Phosphatase C-Reactive Protein Total Protein Albumin Lipase Vitamin B12 TSH Urine WBC (Auto) Urine Chloride Urine Total Protein Crossmatch 10/14/16 10/14/16 10/14/16 21:17 22:25 23:37 WBC RBC Hgb Hct MCV RDW Plt Count Lymph % (Auto) [place] % (Auto) [place] # Seg Neutrophils % Seg Neuts % (Manual) Lymphocytes % (Manual) Monocytes % (Manual) Nucleated RBC % Seg Neutrophils # Seg Neutrophils # Man Lymphocytes # (Manual) Monocytes # (Manual) Eosinophils # (Manual) Basophils # (Manual) PT INR APTT Heparin Anti-Xa Level POC ABG pH POC ABG pCO2 POC ABG pO2 Sodium Potassium Chloride Carbon Dioxide BUN Creatinine Glucose POC Glucose 148 H 132 H 137 H Calcium Phosphorus Magnesium AST Alkaline Phosphatase C-Reactive Protein Total Protein Albumin Lipase Vitamin B12 TSH Urine WBC (Auto) Urine Chloride Urine Total Protein Crossmatch 10/15/16 10/15/16 10/15/16 00:49 01:53 03:06 WBC RBC Hgb Hct MCV RDW Plt Count Lymph % (Auto) [place] % (Auto) [place] # Seg Neutrophils % Seg Neuts % (Manual) Lymphocytes % (Manual) Monocytes % (Manual) Nucleated RBC % Seg Neutrophils # Seg Neutrophils # Man Lymphocytes # (Manual) Monocytes # (Manual) Eosinophils # (Manual) Basophils # (Manual) PT INR APTT Heparin Anti-Xa Level POC ABG pH POC ABG pCO2 POC ABG pO2 Sodium Potassium Chloride Carbon Dioxide BUN Creatinine Glucose POC Glucose 132 H 134 H 134 H Calcium Phosphorus Magnesium AST Alkaline Phosphatase C-Reactive Protein Total Protein Albumin Lipase Vitamin B12 TSH Urine WBC (Auto) Urine Chloride Urine Total Protein Crossmatch 10/15/16 10/15/16 10/15/16 04:40 04:46 06:21 WBC RBC Hgb Hct MCV RDW Plt Count Lymph % (Auto) [place] % (Auto) [place] # Seg Neutrophils % Seg Neuts % (Manual) Lymphocytes % (Manual) Monocytes % (Manual) Nucleated RBC % Seg Neutrophils # Seg Neutrophils # Man Lymphocytes # (Manual) Monocytes # (Manual) Eosinophils # (Manual) Basophils # (Manual) PT INR APTT Heparin Anti-Xa Level POC ABG pH POC ABG pCO2 30.7 L POC ABG pO2 108 H Sodium Potassium Chloride 109.0 H Carbon Dioxide 17 L BUN 27 H Creatinine Glucose 124 H POC Glucose 160 H Calcium 7.5 L Phosphorus Magnesium AST 79 H Alkaline Phosphatase C-Reactive Protein Total Protein 5.5 L Albumin 3.0 L Lipase Vitamin B12 TSH Urine WBC (Auto) Urine Chloride Urine Total Protein Crossmatch 10/15/16 10/15/16 10/15/16 07:12 08:01 09:03 WBC RBC Hgb Hct MCV RDW Plt Count Lymph % (Auto) [place] % (Auto) [place] # Seg Neutrophils % Seg Neuts % (Manual) Lymphocytes % (Manual) Monocytes % (Manual) Nucleated RBC % Seg Neutrophils # Seg Neutrophils # Man Lymphocytes # (Manual) Monocytes # (Manual) Eosinophils # (Manual) Basophils # (Manual) PT INR APTT Heparin Anti-Xa Level POC ABG pH POC ABG pCO2 POC ABG pO2 Sodium Potassium Chloride Carbon Dioxide BUN Creatinine Glucose POC Glucose 179 H 187 H 165 H Calcium Phosphorus Magnesium AST Alkaline Phosphatase C-Reactive Protein Total Protein Albumin Lipase Vitamin B12 TSH Urine WBC (Auto) Urine Chloride Urine Total Protein Crossmatch 10/15/16 10/15/16 10/15/16 10:06 10:06 10:07 WBC 12.1 H RBC 3.01 L Hgb 9.7 L Hct 29.6 L MCV 98 H RDW Plt Count 129 L Lymph % (Auto) [place] % (Auto) [place] # Seg Neutrophils % Seg Neuts % (Manual) Lymphocytes % (Manual) Monocytes % (Manual) Nucleated RBC % Seg Neutrophils # Seg Neutrophils # Man Lymphocytes # (Manual) Monocytes # (Manual) Eosinophils # (Manual) Basophils # (Manual) PT INR APTT Heparin Anti-Xa Level POC ABG pH POC ABG pCO2 POC ABG pO2 Sodium Potassium 3.2 L D Chloride 109.6 H Carbon Dioxide 18 L BUN 22 H Creatinine Glucose 127 H POC Glucose 147 H Calcium 7.0 L Phosphorus Magnesium AST Alkaline Phosphatase C-Reactive Protein Total Protein Albumin Lipase Vitamin B12 TSH Urine WBC (Auto) Urine Chloride Urine Total Protein Crossmatch 10/15/16 10/15/16 10/15/16 11:05 11:06 11:57 WBC RBC Hgb Hct MCV RDW Plt Count Lymph % (Auto) [place] % (Auto) [place] # Seg Neutrophils % Seg Neuts % (Manual) Lymphocytes % (Manual) Monocytes % (Manual) Nucleated RBC % Seg Neutrophils # Seg Neutrophils # Man Lymphocytes # (Manual) Monocytes # (Manual) Eosinophils # (Manual) Basophils # (Manual) PT INR APTT Heparin Anti-Xa Level POC ABG pH 7.305 L POC ABG pCO2 POC ABG pO2 Sodium Potassium Chloride Carbon Dioxide BUN Creatinine Glucose POC Glucose 145 H Calcium Phosphorus Magnesium AST Alkaline Phosphatase C-Reactive Protein Total Protein Albumin Lipase Vitamin B12 TSH Urine WBC (Auto) 7.0 H Urine Chloride Urine Total Protein Crossmatch 10/15/16 10/15/16 10/15/16 12:04 13:59 15:24 WBC RBC Hgb Hct MCV RDW Plt Count Lymph % (Auto) [place] % (Auto) [place] # Seg Neutrophils % Seg Neuts % (Manual) Lymphocytes % (Manual) Monocytes % (Manual) Nucleated RBC % Seg Neutrophils # Seg Neutrophils # Man Lymphocytes # (Manual) Monocytes # (Manual) Eosinophils # (Manual) Basophils # (Manual) PT INR APTT Heparin Anti-Xa Level POC ABG pH POC ABG pCO2 POC ABG pO2 Sodium Potassium Chloride Carbon Dioxide BUN Creatinine Glucose POC Glucose 123 H 147 H 153 H Calcium Phosphorus Magnesium AST Alkaline Phosphatase C-Reactive Protein Total Protein Albumin Lipase Vitamin B12 TSH Urine WBC (Auto) Urine Chloride Urine Total Protein Crossmatch 10/15/16 10/15/16 10/15/16 16:30 17:34 18:30 WBC RBC Hgb Hct MCV RDW Plt Count Lymph % (Auto) [place] % (Auto) [place] # Seg Neutrophils % Seg Neuts % (Manual) Lymphocytes % (Manual) Monocytes % (Manual) Nucleated RBC % Seg Neutrophils # Seg Neutrophils # Man Lymphocytes # (Manual) Monocytes # (Manual) Eosinophils # (Manual) Basophils # (Manual) PT INR APTT Heparin Anti-Xa Level POC ABG pH POC ABG pCO2 POC ABG pO2 Sodium Potassium Chloride Carbon Dioxide BUN Creatinine Glucose POC Glucose 223 H 236 H 164 H Calcium Phosphorus Magnesium AST Alkaline Phosphatase C-Reactive Protein Total Protein Albumin Lipase Vitamin B12 TSH Urine WBC (Auto) Urine Chloride Urine Total Protein Crossmatch 10/15/16 10/15/16 10/15/16 19:14 20:31 21:23 WBC RBC Hgb Hct MCV RDW Plt Count Lymph % (Auto) [place] % (Auto) [place] # Seg Neutrophils % Seg Neuts % (Manual) Lymphocytes % (Manual) Monocytes % (Manual) Nucleated RBC % Seg Neutrophils # Seg Neutrophils # Man Lymphocytes # (Manual) Monocytes # (Manual) Eosinophils # (Manual) Basophils # (Manual) PT INR APTT Heparin Anti-Xa Level POC ABG pH POC ABG pCO2 POC ABG pO2 Sodium Potassium Chloride Carbon Dioxide BUN Creatinine Glucose POC Glucose 138 H 158 H 158 H Calcium Phosphorus Magnesium AST Alkaline Phosphatase C-Reactive Protein Total Protein Albumin Lipase Vitamin B12 TSH Urine WBC (Auto) Urine Chloride Urine Total Protein Crossmatch 10/15/16 10/15/16 10/16/16 22:04 22:57 00:11 WBC RBC Hgb Hct MCV RDW Plt Count Lymph % (Auto) [place] % (Auto) [place] # Seg Neutrophils % Seg Neuts % (Manual) Lymphocytes % (Manual) Monocytes % (Manual) Nucleated RBC % Seg Neutrophils # Seg Neutrophils # Man Lymphocytes # (Manual) Monocytes # (Manual) Eosinophils # (Manual) Basophils # (Manual) PT INR APTT Heparin Anti-Xa Level POC ABG pH POC ABG pCO2 POC ABG pO2 Sodium Potassium Chloride Carbon Dioxide BUN Creatinine Glucose POC Glucose 168 H 213 H 166 H Calcium Phosphorus Magnesium AST Alkaline Phosphatase C-Reactive Protein Total Protein Albumin Lipase Vitamin B12 TSH Urine WBC (Auto) Urine Chloride Urine Total Protein Crossmatch 10/16/16 10/16/16 10/16/16 01:16 02:32 03:38 WBC RBC Hgb Hct MCV RDW Plt Count Lymph % (Auto) [place] % (Auto) [place] # Seg Neutrophils % Seg Neuts % (Manual) Lymphocytes % (Manual) Monocytes % (Manual) Nucleated RBC % Seg Neutrophils # Seg Neutrophils # Man Lymphocytes # (Manual) Monocytes # (Manual) Eosinophils # (Manual) Basophils # (Manual) PT INR APTT Heparin Anti-Xa Level POC ABG pH POC ABG pCO2 POC ABG pO2 Sodium Potassium Chloride Carbon Dioxide BUN Creatinine Glucose POC Glucose 171 H 164 H 147 H Calcium Phosphorus Magnesium AST Alkaline Phosphatase C-Reactive Protein Total Protein Albumin Lipase Vitamin B12 TSH Urine WBC (Auto) Urine Chloride Urine Total Protein Crossmatch 10/16/16 10/16/16 10/16/16 04:14 04:14 04:49 WBC RBC Hgb Hct MCV RDW Plt Count Lymph % (Auto) [place] % (Auto) [place] # Seg Neutrophils % Seg Neuts % (Manual) Lymphocytes % (Manual) Monocytes % (Manual) Nucleated RBC % Seg Neutrophils # Seg Neutrophils # Man Lymphocytes # (Manual) Monocytes # (Manual) Eosinophils # (Manual) Basophils # (Manual) PT INR APTT Heparin Anti-Xa Level POC ABG pH POC ABG pCO2 POC ABG pO2 Sodium 147 H Potassium Chloride 110.9 H Carbon Dioxide 19 L BUN Creatinine Glucose 139 H POC Glucose 144 H Calcium 7.3 L Phosphorus 2.3 L Magnesium AST Alkaline Phosphatase C-Reactive Protein Total Protein Albumin Lipase 143 H Vitamin B12 TSH Urine WBC (Auto) Urine Chloride Urine Total Protein Crossmatch 10/16/16 10/16/16 10/16/16 05:03 05:41 05:58 WBC 16.5 H RBC 3.36 L Hgb Hct MCV 98 H RDW 13.1 L Plt Count Lymph % (Auto) 8.5 L Kendall % (Auto) 7.6 H Kendall # 1.3 H Seg Neutrophils % 83.3 H Seg Neuts % (Manual) Lymphocytes % (Manual) Monocytes % (Manual) Nucleated RBC % Seg Neutrophils # 13.8 H Seg Neutrophils # Man Lymphocytes # (Manual) Monocytes # (Manual) Eosinophils # (Manual) Basophils # (Manual) PT INR APTT Heparin Anti-Xa Level POC ABG pH POC ABG pCO2 30.7 L POC ABG pO2 128 H Sodium Potassium Chloride Carbon Dioxide BUN Creatinine Glucose POC Glucose 131 H Calcium Phosphorus Magnesium AST Alkaline Phosphatase C-Reactive Protein Total Protein Albumin Lipase Vitamin B12 TSH Urine WBC (Auto) Urine Chloride Urine Total Protein Crossmatch 10/16/16 10/16/16 10/16/16 06:32 09:27 09:35 WBC RBC Hgb Hct MCV RDW Plt Count Lymph % (Auto) Kendall % (Auto) Kendall # Seg Neutrophils % Seg Neuts % (Manual) Lymphocytes % (Manual) Monocytes % (Manual) Nucleated RBC % Seg Neutrophils # Seg Neutrophils # Man Lymphocytes # (Manual) Monocytes # (Manual) Eosinophils # (Manual) Basophils # (Manual) PT INR APTT Heparin Anti-Xa Level POC ABG pH POC ABG pCO2 32.8 L POC ABG pO2 137 H Sodium Potassium Chloride Carbon Dioxide BUN Creatinine Glucose POC Glucose 121 H 150 H Calcium Phosphorus Magnesium AST Alkaline Phosphatase C-Reactive Protein Total Protein Albumin Lipase Vitamin B12 TSH Urine WBC (Auto) Urine Chloride Urine Total Protein Crossmatch 10/16/16 10/16/16 10/16/16 10:47 13:27 14:24 WBC RBC Hgb Hct MCV RDW Plt Count Lymph % (Auto) Kendall % (Auto) Kendall # Seg Neutrophils % Seg Neuts % (Manual) Lymphocytes % (Manual) Monocytes % (Manual) Nucleated RBC % Seg Neutrophils # Seg Neutrophils # Man Lymphocytes # (Manual) Monocytes # (Manual) Eosinophils # (Manual) Basophils # (Manual) PT INR APTT Heparin Anti-Xa Level POC ABG pH POC ABG pCO2 POC ABG pO2 Sodium Potassium Chloride Carbon Dioxide BUN Creatinine Glucose POC Glucose 184 H 171 H 174 H Calcium Phosphorus Magnesium AST Alkaline Phosphatase C-Reactive Protein Total Protein Albumin Lipase Vitamin B12 TSH Urine WBC (Auto) Urine Chloride Urine Total Protein Crossmatch 10/16/16 10/16/16 10/16/16 15:48 16:26 18:17 WBC RBC Hgb Hct MCV RDW Plt Count Lymph % (Auto) Kend[place] % (Auto) Kendall # Seg Neutrophils % Seg Neuts % (Manual) Lymphocytes % (Manual) Monocytes % (Manual) Nucleated RBC % Seg Neutrophils # Seg Neutrophils # Man Lymphocytes # (Manual) Monocytes # (Manual) Eosinophils # (Manual) Basophils # (Manual) PT INR APTT Heparin Anti-Xa Level POC ABG pH POC ABG pCO2 POC ABG pO2 Sodium Potassium Chloride Carbon Dioxide BUN Creatinine Glucose POC Glucose 205 H 204 H 234 H Calcium Phosphorus Magnesium AST Alkaline Phosphatase C-Reactive Protein Total Protein Albumin Lipase Vitamin B12 TSH Urine WBC (Auto) Urine Chloride Urine Total Protein Crossmatch 10/16/16 10/16/16 10/16/16 19:40 20:33 21:36 WBC RBC Hgb Hct MCV RDW Plt Count Lymph % (Auto) [place] % (Auto) Kend[place] # Seg Neutrophils % Seg Neuts % (Manual) Lymphocytes % (Manual) Monocytes % (Manual) Nucleated RBC % Seg Neutrophils # Seg Neutrophils # Man Lymphocytes # (Manual) Monocytes # (Manual) Eosinophils # (Manual) Basophils # (Manual) PT INR APTT Heparin Anti-Xa Level POC ABG pH POC ABG pCO2 POC ABG pO2 Sodium Potassium Chloride Carbon Dioxide BUN Creatinine Glucose POC Glucose 167 H 153 H 158 H Calcium Phosphorus Magnesium AST Alkaline Phosphatase C-Reactive Protein Total Protein Albumin Lipase Vitamin B12 TSH Urine WBC (Auto) Urine Chloride Urine Total Protein Crossmatch 10/16/16 10/16/16 10/17/16 22:54 23:48 00:47 WBC RBC Hgb Hct MCV RDW Plt Count Lymph % (Auto) [place] % (Auto) [place] # Seg Neutrophils % Seg Neuts % (Manual) Lymphocytes % (Manual) Monocytes % (Manual) Nucleated RBC % Seg Neutrophils # Seg Neutrophils # Man Lymphocytes # (Manual) Monocytes # (Manual) Eosinophils # (Manual) Basophils # (Manual) PT INR APTT Heparin Anti-Xa Level POC ABG pH POC ABG pCO2 POC ABG pO2 Sodium Potassium Chloride Carbon Dioxide BUN Creatinine Glucose POC Glucose 180 H 207 H 196 H Calcium Phosphorus Magnesium AST Alkaline Phosphatase C-Reactive Protein Total Protein Albumin Lipase Vitamin B12 TSH Urine WBC (Auto) Urine Chloride Urine Total Protein Crossmatch 10/17/16 10/17/16 10/17/16 01:57 02:49 03:50 WBC RBC Hgb Hct MCV RDW Plt Count Lymph % (Auto) [place] % (Auto) [place] # Seg Neutrophils % Seg Neuts % (Manual) Lymphocytes % (Manual) Monocytes % (Manual) Nucleated RBC % Seg Neutrophils # Seg Neutrophils # Man Lymphocytes # (Manual) Monocytes # (Manual) Eosinophils # (Manual) Basophils # (Manual) PT INR APTT Heparin Anti-Xa Level POC ABG pH POC ABG pCO2 POC ABG pO2 Sodium Potassium Chloride Carbon Dioxide BUN Creatinine Glucose POC Glucose 180 H 151 H 106 H Calcium Phosphorus Magnesium AST Alkaline Phosphatase C-Reactive Protein Total Protein Albumin Lipase Vitamin B12 TSH Urine WBC (Auto) Urine Chloride Urine Total Protein Crossmatch 10/17/16 10/17/16 10/17/16 04:59 06:03 06:35 WBC RBC Hgb Hct MCV RDW Plt Count Lymph % (Auto) [place] % (Auto) [place] # Seg Neutrophils % Seg Neuts % (Manual) Lymphocytes % (Manual) Monocytes % (Manual) Nucleated RBC % Seg Neutrophils # Seg Neutrophils # Man Lymphocytes # (Manual) Monocytes # (Manual) Eosinophils # (Manual) Basophils # (Manual) PT INR APTT Heparin Anti-Xa Level POC ABG pH 7.453 H POC ABG pCO2 30.1 L POC ABG pO2 111 H Sodium Potassium Chloride Carbon Dioxide BUN Creatinine Glucose POC Glucose 145 H 157 H Calcium Phosphorus Magnesium AST Alkaline Phosphatase C-Reactive Protein Total Protein Albumin Lipase Vitamin B12 TSH Urine WBC (Auto) Urine Chloride Urine Total Protein Crossmatch 10/17/16 10/17/16 10/17/16 07:08 07:11 08:01 WBC RBC Hgb Hct MCV RDW Plt Count Lymph % (Auto) [place] % (Auto) [place] # Seg Neutrophils % Seg Neuts % (Manual) Lymphocytes % (Manual) Monocytes % (Manual) Nucleated RBC % Seg Neutrophils # Seg Neutrophils # Man Lymphocytes # (Manual) Monocytes # (Manual) Eosinophils # (Manual) Basophils # (Manual) PT INR APTT Heparin Anti-Xa Level POC ABG pH POC ABG pCO2 POC ABG pO2 Sodium 147 H Potassium Chloride 113.8 H Carbon Dioxide 19 L BUN Creatinine Glucose 136 H POC Glucose 136 H 152 H Calcium 7.7 L Phosphorus Magnesium AST Alkaline Phosphatase C-Reactive Protein Total Protein Albumin Lipase Vitamin B12 TSH Urine WBC (Auto) Urine Chloride Urine Total Protein Crossmatch 10/17/16 10/17/16 10/17/16 08:23 09:17 09:53 WBC 18.1 H RBC 3.01 L Hgb 9.7 L Hct 29.4 L MCV 98 H RDW Plt Count 116 L Lymph % (Auto) Kendall % (Auto) Kendall # Seg Neutrophils % Seg Neuts % (Manual) 77.0 H Lymphocytes % (Manual) 4.0 L Monocytes % (Manual) 12.0 H Nucleated RBC % Seg Neutrophils # Seg Neutrophils # Man 13.9 H Lymphocytes # (Manual) 0.7 L Monocytes # (Manual) 2.2 H Eosinophils # (Manual) Basophils # (Manual) PT INR APTT Heparin Anti-Xa Level POC ABG pH POC ABG pCO2 POC ABG pO2 Sodium Potassium Chloride Carbon Dioxide BUN Creatinine Glucose POC Glucose 148 H 137 H Calcium Phosphorus Magnesium AST Alkaline Phosphatase C-Reactive Protein Total Protein Albumin Lipase Vitamin B12 TSH Urine WBC (Auto) Urine Chloride Urine Total Protein Crossmatch 10/17/16 10/17/16 10/17/16 11:43 16:07 17:42 WBC RBC Hgb Hct MCV RDW Plt Count Lymph % (Auto) [place] % (Auto) Kendall # Seg Neutrophils % Seg Neuts % (Manual) Lymphocytes % (Manual) Monocytes % (Manual) Nucleated RBC % Seg Neutrophils # Seg Neutrophils # Man Lymphocytes # (Manual) Monocytes # (Manual) Eosinophils # (Manual) Basophils # (Manual) PT 16.4 H INR 1.33 H APTT 38.8 H Heparin Anti-Xa Level POC ABG pH POC ABG pCO2 POC ABG pO2 Sodium Potassium Chloride Carbon Dioxide BUN Creatinine Glucose POC Glucose 179 H 153 H Calcium Phosphorus Magnesium AST Alkaline Phosphatase C-Reactive Protein Total Protein Albumin Lipase Vitamin B12 TSH Urine WBC (Auto) Urine Chloride Urine Total Protein Crossmatch 10/17/16 10/18/16 10/18/16 22:54 04:37 05:39 WBC RBC Hgb Hct MCV RDW Plt Count Lymph % (Auto) Kendall % (Auto) Kendall # Seg Neutrophils % Seg Neuts % (Manual) Lymphocytes % (Manual) Monocytes % (Manual) Nucleated RBC % Seg Neutrophils # Seg Neutrophils # Man Lymphocytes # (Manual) Monocytes # (Manual) Eosinophils # (Manual) Basophils # (Manual) PT INR APTT Heparin Anti-Xa Level 0.27 L POC ABG pH 7.454 H POC ABG pCO2 30.8 L POC ABG pO2 115 H Sodium Potassium Chloride Carbon Dioxide BUN Creatinine Glucose POC Glucose 69 L Calcium Phosphorus Magnesium AST Alkaline Phosphatase C-Reactive Protein Total Protein Albumin Lipase Vitamin B12 TSH Urine WBC (Auto) Urine Chloride Urine Total Protein Crossmatch 10/18/16 10/18/16 10/18/16 06:46 06:46 06:46 WBC 20.5 H RBC 2.62 L Hgb 8.4 L Hct 26.0 L MCV 100 H RDW Plt Count Lymph % (Auto) Kendall % (Auto) Kendall # Seg Neutrophils % Seg Neuts % (Manual) 75.0 H Lymphocytes % (Manual) 9.0 L Monocytes % (Manual) 14.0 H Nucleated RBC % Seg Neutrophils # Seg Neutrophils # Man 15.4 H Lymphocytes # (Manual) Monocytes # (Manual) 2.9 H Eosinophils # (Manual) Basophils # (Manual) PT INR APTT Heparin Anti-Xa Level POC ABG pH POC ABG pCO2 POC ABG pO2 Sodium Potassium Chloride 110.6 H Carbon Dioxide BUN Creatinine 1.3 H Glucose 153 H POC Glucose Calcium 8.0 L Phosphorus Magnesium 1.6 L AST Alkaline Phosphatase C-Reactive Protein Total Protein Albumin Lipase Vitamin B12 TSH Urine WBC (Auto) Urine Chloride Urine Total Protein Crossmatch 10/18/16 10/18/16 10/18/16 07:30 11:37 17:51 WBC RBC Hgb Hct MCV RDW Plt Count Lymph % (Auto) [place] % (Auto) [place] # Seg Neutrophils % Seg Neuts % (Manual) Lymphocytes % (Manual) Monocytes % (Manual) Nucleated RBC % Seg Neutrophils # Seg Neutrophils # Man Lymphocytes # (Manual) Monocytes # (Manual) Eosinophils # (Manual) Basophils # (Manual) PT INR APTT Heparin Anti-Xa Level POC ABG pH POC ABG pCO2 POC ABG pO2 Sodium Potassium Chloride Carbon Dioxide BUN Creatinine Glucose POC Glucose 162 H 156 H 164 H Calcium Phosphorus Magnesium AST Alkaline Phosphatase C-Reactive Protein Total Protein Albumin Lipase Vitamin B12 TSH Urine WBC (Auto) Urine Chloride Urine Total Protein Crossmatch 10/18/16 10/19/16 10/19/16 23:44 03:59 05:13 WBC 18.2 H RBC 2.76 L Hgb 9.0 L Hct 27.7 L MCV 100 H RDW Plt Count Lymph % (Auto) Kendall % (Auto) Kendall # Seg Neutrophils % Seg Neuts % (Manual) 76.0 H Lymphocytes % (Manual) 10.0 L Monocytes % (Manual) Nucleated RBC % Seg Neutrophils # Seg Neutrophils # Man 13.8 H Lymphocytes # (Manual) Monocytes # (Manual) Eosinophils # (Manual) Basophils # (Manual) PT INR APTT Heparin Anti-Xa Level POC ABG pH POC ABG pCO2 32.2 L POC ABG pO2 128 H Sodium Potassium Chloride Carbon Dioxide BUN Creatinine Glucose POC Glucose 278 H Calcium Phosphorus Magnesium AST Alkaline Phosphatase C-Reactive Protein Total Protein Albumin Lipase Vitamin B12 TSH Urine WBC (Auto) Urine Chloride Urine Total Protein Crossmatch 10/19/16 10/19/16 10/19/16 06:01 06:30 12:20 WBC RBC Hgb Hct MCV RDW Plt Count Lymph % (Auto) [place] % (Auto) Kend[place] # Seg Neutrophils % Seg Neuts % (Manual) Lymphocytes % (Manual) Monocytes % (Manual) Nucleated RBC % Seg Neutrophils # Seg Neutrophils # Man Lymphocytes # (Manual) Monocytes # (Manual) Eosinophils # (Manual) Basophils # (Manual) PT INR APTT Heparin Anti-Xa Level POC ABG pH POC ABG pCO2 POC ABG pO2 Sodium Potassium Chloride Carbon Dioxide 18 L BUN Creatinine 1.3 H Glucose 262 H POC Glucose 261 H 349 H Calcium 7.7 L Phosphorus 4.8 H D Magnesium AST Alkaline Phosphatase C-Reactive Protein Total Protein Albumin Lipase Vitamin B12 TSH Urine WBC (Auto) Urine Chloride Urine Total Protein Crossmatch 10/19/16 10/20/16 10/20/16 16:48 00:17 05:20 WBC 22.5 H RBC 2.80 L Hgb 8.9 L Hct 28.3 L MCV 101 H RDW Plt Count Lymph % (Auto) [place] % (Auto) Kend[place] # Seg Neutrophils % Seg Neuts % (Manual) Lymphocytes % (Manual) 10.0 L Monocytes % (Manual) Nucleated RBC % Seg Neutrophils # Seg Neutrophils # Man 13.3 H Lymphocytes # (Manual) Monocytes # (Manual) 1.1 H Eosinophils # (Manual) 0.7 H Basophils # (Manual) PT INR APTT Heparin Anti-Xa Level POC ABG pH POC ABG pCO2 POC ABG pO2 Sodium Potassium Chloride Carbon Dioxide BUN Creatinine Glucose POC Glucose 248 H 346 H Calcium Phosphorus Magnesium AST Alkaline Phosphatase C-Reactive Protein Total Protein Albumin Lipase Vitamin B12 TSH Urine WBC (Auto) Urine Chloride Urine Total Protein Crossmatch 10/20/16 10/20/16 10/20/16 05:20 05:20 06:05 WBC RBC Hgb Hct MCV RDW Plt Count Lymph % (Auto) [place] % (Auto) Kend[place] # Seg Neutrophils % Seg Neuts % (Manual) Lymphocytes % (Manual) Monocytes % (Manual) Nucleated RBC % Seg Neutrophils # Seg Neutrophils # Man Lymphocytes # (Manual) Monocytes # (Manual) Eosinophils # (Manual) Basophils # (Manual) PT INR APTT Heparin Anti-Xa Level 0.20 L POC ABG pH POC ABG pCO2 POC ABG pO2 Sodium Potassium Chloride Carbon Dioxide BUN 20 H Creatinine Glucose 374 H POC Glucose 337 H Calcium 8.3 L Phosphorus Magnesium AST Alkaline Phosphatase C-Reactive Protein Total Protein Albumin Lipase Vitamin B12 TSH Urine WBC (Auto) Urine Chloride Urine Total Protein Crossmatch 10/20/16 10/20/16 10/20/16 11:49 13:59 17:56 WBC RBC Hgb Hct MCV RDW Plt Count Lymph % (Auto) [place] % (Auto) Kend[place] # Seg Neutrophils % Seg Neuts % (Manual) Lymphocytes % (Manual) Monocytes % (Manual) Nucleated RBC % Seg Neutrophils # Seg Neutrophils # Man Lymphocytes # (Manual) Monocytes # (Manual) Eosinophils # (Manual) Basophils # (Manual) PT INR APTT Heparin Anti-Xa Level 2.00 H POC ABG pH POC ABG pCO2 POC ABG pO2 Sodium Potassium Chloride Carbon Dioxide BUN Creatinine Glucose POC Glucose 305 H 362 H Calcium Phosphorus Magnesium AST Alkaline Phosphatase C-Reactive Protein Total Protein Albumin Lipase Vitamin B12 TSH Urine WBC (Auto) Urine Chloride Urine Total Protein Crossmatch 10/20/16 10/21/16 10/21/16 23:52 05:00 05:49 WBC 22.9 H RBC 2.49 L Hgb 7.7 L Hct 25.6 L MCV 103 H RDW Plt Count Lymph % (Auto) [place] % (Auto) Kendall # Seg Neutrophils % Seg Neuts % (Manual) 94.0 H Lymphocytes % (Manual) 1.0 L Monocytes % (Manual) Nucleated RBC % Seg Neutrophils # Seg Neutrophils # Man 21.5 H Lymphocytes # (Manual) 0.2 L Monocytes # (Manual) 1.1 H Eosinophils # (Manual) Basophils # (Manual) PT INR APTT Heparin Anti-Xa Level POC ABG pH POC ABG pCO2 POC ABG pO2 Sodium Potassium Chloride Carbon Dioxide BUN Creatinine Glucose POC Glucose 252 H 180 H Calcium Phosphorus Magnesium AST Alkaline Phosphatase C-Reactive Protein Total Protein Albumin Lipase Vitamin B12 TSH Urine WBC (Auto) Urine Chloride Urine Total Protein Crossmatch 10/21/16 10/21/16 10/21/16 11:47 11:49 14:10 WBC RBC Hgb Hct MCV RDW Plt Count Lymph % (Auto) [place] % (Auto) [place] # Seg Neutrophils % Seg Neuts % (Manual) Lymphocytes % (Manual) Monocytes % (Manual) Nucleated RBC % Seg Neutrophils # Seg Neutrophils # Man Lymphocytes # (Manual) Monocytes # (Manual) Eosinophils # (Manual) Basophils # (Manual) PT INR APTT Heparin Anti-Xa Level POC ABG pH POC ABG pCO2 POC ABG pO2 Sodium Potassium Chloride Carbon Dioxide BUN Creatinine Glucose POC Glucose 50 L 56 L 140 H Calcium Phosphorus Magnesium AST Alkaline Phosphatase C-Reactive Protein Total Protein Albumin Lipase Vitamin B12 TSH Urine WBC (Auto) Urine Chloride Urine Total Protein Crossmatch 10/21/16 10/21/16 10/22/16 18:24 Unknown 00:07 WBC RBC Hgb Hct MCV RDW Plt Count Lymph % (Auto) [place] % (Auto) [place] # Seg Neutrophils % Seg Neuts % (Manual) Lymphocytes % (Manual) Monocytes % (Manual) Nucleated RBC % Seg Neutrophils # Seg Neutrophils # Man Lymphocytes # (Manual) Monocytes # (Manual) Eosinophils # (Manual) Basophils # (Manual) PT INR APTT Heparin Anti-Xa Level POC ABG pH POC ABG pCO2 POC ABG pO2 Sodium 150 H Potassium 3.1 L Chloride 112.4 H Carbon Dioxide BUN 25 H Creatinine 1.4 H Glucose POC Glucose 175 H 218 H Calcium 8.0 L Phosphorus Magnesium AST Alkaline Phosphatase C-Reactive Protein Total Protein Albumin Lipase Vitamin B12 TSH Urine WBC (Auto) Urine Chloride Urine Total Protein Crossmatch 10/22/16 10/22/16 10/22/16 04:20 04:20 10:25 WBC 20.8 H RBC 2.37 L Hgb 7.5 L Hct 23.9 L MCV 101 H RDW Plt Count Lymph % (Auto) [place] % (Auto) [place] # Seg Neutrophils % Seg Neuts % (Manual) 89.0 H Lymphocytes % (Manual) 7.0 L Monocytes % (Manual) Nucleated RBC % Seg Neutrophils # Seg Neutrophils # Man 18.5 H Lymphocytes # (Manual) Monocytes # (Manual) Eosinophils # (Manual) Basophils # (Manual) 0.2 H PT INR APTT Heparin Anti-Xa Level POC ABG pH POC ABG pCO2 POC ABG pO2 Sodium 148 H Potassium 2.9 L* Chloride 109.4 H Carbon Dioxide BUN 26 H Creatinine Glucose 140 H POC Glucose Calcium 7.5 L Phosphorus Magnesium AST Alkaline Phosphatase C-Reactive Protein Total Protein Albumin Lipase Vitamin B12 976.8 H TSH Urine WBC (Auto) Urine Chloride Urine Total Protein Crossmatch 10/22/16 10/22/16 10/22/16 10:25 14:50 18:16 WBC RBC Hgb Hct MCV RDW Plt Count Lymph % (Auto) [place] % (Auto) [place] # Seg Neutrophils % Seg Neuts % (Manual) Lymphocytes % (Manual) Monocytes % (Manual) Nucleated RBC % Seg Neutrophils # Seg Neutrophils # Man Lymphocytes # (Manual) Monocytes # (Manual) Eosinophils # (Manual) Basophils # (Manual) PT INR APTT Heparin Anti-Xa Level POC ABG pH POC ABG pCO2 POC ABG pO2 Sodium Potassium Chloride Carbon Dioxide BUN Creatinine Glucose POC Glucose 193 H Calcium Phosphorus Magnesium AST Alkaline Phosphatase C-Reactive Protein Total Protein Albumin Lipase Vitamin B12 TSH 0.143 L 0.162 L Urine WBC (Auto) Urine Chloride Urine Total Protein Crossmatch 10/22/16 10/22/16 10/22/16 20:00 20:00 20:00 WBC 24.1 H RBC 2.58 L Hgb 8.2 L Hct 26.4 L MCV 102 H RDW Plt Count Lymph % (Auto) [place] % (Auto) Kend[place] # Seg Neutrophils % Seg Neuts % (Manual) 74.0 H Lymphocytes % (Manual) 7.0 L Monocytes % (Manual) Nucleated RBC % Seg Neutrophils # Seg Neutrophils # Man 17.8 H Lymphocytes # (Manual) Monocytes # (Manual) Eosinophils # (Manual) Basophils # (Manual) PT INR APTT Heparin Anti-Xa Level 1.92 H POC ABG pH POC ABG pCO2 POC ABG pO2 Sodium Potassium Chloride Carbon Dioxide BUN Creatinine Glucose POC Glucose Calcium Phosphorus Magnesium AST Alkaline Phosphatase C-Reactive Protein Total Protein Albumin Lipase Vitamin B12 TSH Urine WBC (Auto) Urine Chloride Urine Total Protein Crossmatch See Detail 10/23/16 10/23/16 10/23/16 00:21 06:09 12:07 WBC RBC Hgb Hct MCV RDW Plt Count Lymph % (Auto) [place] % (Auto) [place] # Seg Neutrophils % Seg Neuts % (Manual) Lymphocytes % (Manual) Monocytes % (Manual) Nucleated RBC % Seg Neutrophils # Seg Neutrophils # Man Lymphocytes # (Manual) Monocytes # (Manual) Eosinophils # (Manual) Basophils # (Manual) PT INR APTT Heparin Anti-Xa Level POC ABG pH POC ABG pCO2 POC ABG pO2 Sodium Potassium Chloride Carbon Dioxide BUN Creatinine Glucose POC Glucose 283 H 241 H 340 H Calcium Phosphorus Magnesium AST Alkaline Phosphatase C-Reactive Protein Total Protein Albumin Lipase Vitamin B12 TSH Urine WBC (Auto) Urine Chloride Urine Total Protein Crossmatch 10/23/16 10/23/16 10/23/16 14:01 16:00 17:59 WBC RBC Hgb Hct MCV RDW Plt Count Lymph % (Auto) [place] % (Auto) [place] # Seg Neutrophils % Seg Neuts % (Manual) Lymphocytes % (Manual) Monocytes % (Manual) Nucleated RBC % Seg Neutrophils # Seg Neutrophils # Man Lymphocytes # (Manual) Monocytes # (Manual) Eosinophils # (Manual) Basophils # (Manual) PT INR APTT Heparin Anti-Xa Level 0.19 L POC ABG pH POC ABG pCO2 32.4 L POC ABG pO2 Sodium Potassium Chloride Carbon Dioxide BUN Creatinine Glucose POC Glucose 245 H Calcium Phosphorus Magnesium AST Alkaline Phosphatase C-Reactive Protein Total Protein Albumin Lipase Vitamin B12 TSH Urine WBC (Auto) Urine Chloride Urine Total Protein Crossmatch 10/23/16 10/23/16 10/23/16 22:55 Unknown Unknown WBC 22.6 H RBC 3.26 L Hgb Hct MCV RDW 17.1 H Plt Count Lymph % (Auto) [place] % (Auto) [place] # Seg Neutrophils % Seg Neuts % (Manual) Lymphocytes % (Manual) 11.0 L Monocytes % (Manual) Nucleated RBC % Seg Neutrophils # Seg Neutrophils # Man 14.0 H Lymphocytes # (Manual) Monocytes # (Manual) Eosinophils # (Manual) Basophils # (Manual) PT INR APTT Heparin Anti-Xa Level 0.17 L 0.15 L POC ABG pH POC ABG pCO2 POC ABG pO2 Sodium Potassium Chloride Carbon Dioxide BUN Creatinine Glucose POC Glucose Calcium Phosphorus Magnesium AST Alkaline Phosphatase C-Reactive Protein Total Protein Albumin Lipase Vitamin B12 TSH Urine WBC (Auto) Urine Chloride Urine Total Protein Crossmatch 10/23/16 10/24/16 10/24/16 Unknown 00:05 05:30 WBC RBC Hgb Hct MCV RDW Plt Count Lymph % (Auto) [place] % (Auto) [place] # Seg Neutrophils % Seg Neuts % (Manual) Lymphocytes % (Manual) Monocytes % (Manual) Nucleated RBC % Seg Neutrophils # Seg Neutrophils # Man Lymphocytes # (Manual) Monocytes # (Manual) Eosinophils # (Manual) Basophils # (Manual) PT INR APTT Heparin Anti-Xa Level 0.13 L POC ABG pH POC ABG pCO2 POC ABG pO2 Sodium Potassium Chloride 111.2 H Carbon Dioxide 20 L BUN 25 H Creatinine Glucose 227 H POC Glucose 118 H Calcium 7.1 L Phosphorus Magnesium AST Alkaline Phosphatase C-Reactive Protein Total Protein Albumin Lipase Vitamin B12 TSH Urine WBC (Auto) Urine Chloride Urine Total Protein Crossmatch 10/24/16 10/24/16 10/24/16 11:00 11:00 12:06 WBC 17.6 H RBC 2.92 L Hgb 9.2 L Hct 28.3 L MCV RDW 16.9 H Plt Count Lymph % (Auto) [place] % (Auto) [place] # Seg Neutrophils % Seg Neuts % (Manual) Lymphocytes % (Manual) Monocytes % (Manual) Nucleated RBC % Seg Neutrophils # Seg Neutrophils # Man Lymphocytes # (Manual) Monocytes # (Manual) Eosinophils # (Manual) Basophils # (Manual) PT INR APTT Heparin Anti-Xa Level 0.27 L POC ABG pH POC ABG pCO2 POC ABG pO2 Sodium Potassium Chloride Carbon Dioxide BUN Creatinine Glucose POC Glucose 166 H Calcium Phosphorus Magnesium AST Alkaline Phosphatase C-Reactive Protein Total Protein Albumin Lipase Vitamin B12 TSH Urine WBC (Auto) Urine Chloride Urine Total Protein Crossmatch 10/24/16 10/25/16 10/25/16 12:27 00:49 03:30 WBC RBC Hgb 8.8 L Hct 28.1 L MCV RDW Plt Count Lymph % (Auto) [place] % (Auto) [place] # Seg Neutrophils % Seg Neuts % (Manual) Lymphocytes % (Manual) Monocytes % (Manual) Nucleated RBC % Seg Neutrophils # Seg Neutrophils # Man Lymphocytes # (Manual) Monocytes # (Manual) Eosinophils # (Manual) Basophils # (Manual) PT INR APTT Heparin Anti-Xa Level POC ABG pH POC ABG pCO2 33.9 L POC ABG pO2 Sodium Potassium Chloride Carbon Dioxide BUN Creatinine Glucose POC Glucose 121 H Calcium Phosphorus Magnesium AST Alkaline Phosphatase C-Reactive Protein Total Protein Albumin Lipase Vitamin B12 TSH Urine WBC (Auto) Urine Chloride Urine Total Protein Crossmatch 10/25/16 10/25/16 10/25/16 09:49 12:10 19:25 WBC 21.1 H RBC 3.02 L Hgb 9.3 L Hct 28.9 L MCV RDW 16.3 H Plt Count Lymph % (Auto) [place] % (Auto) [place] # Seg Neutrophils % Seg Neuts % (Manual) 81.0 H Lymphocytes % (Manual) 9.0 L Monocytes % (Manual) Nucleated RBC % Seg Neutrophils # Seg Neutrophils # Man 17.1 H Lymphocytes # (Manual) Monocytes # (Manual) Eosinophils # (Manual) Basophils # (Manual) PT INR APTT Heparin Anti-Xa Level POC ABG pH POC ABG pCO2 POC ABG pO2 Sodium Potassium Chloride Carbon Dioxide BUN Creatinine Glucose POC Glucose 158 H 151 H Calcium Phosphorus Magnesium AST Alkaline Phosphatase C-Reactive Protein Total Protein Albumin Lipase Vitamin B12 TSH Urine WBC (Auto) Urine Chloride Urine Total Protein Crossmatch 10/26/16 10/26/16 10/26/16 00:20 01:09 05:02 WBC 22.2 H RBC 2.89 L Hgb 8.7 L Hct 27.8 L MCV RDW 16.4 H Plt Count Lymph % (Auto) [place] % (Auto) [place] # Seg Neutrophils % Seg Neuts % (Manual) Lymphocytes % (Manual) Monocytes % (Manual) Nucleated RBC % Seg Neutrophils # Seg Neutrophils # Man Lymphocytes # (Manual) Monocytes # (Manual) Eosinophils # (Manual) Basophils # (Manual) PT INR APTT Heparin Anti-Xa Level POC ABG pH POC ABG pCO2 POC ABG pO2 Sodium Potassium Chloride Carbon Dioxide BUN Creatinine Glucose POC Glucose 44 L 112 H Calcium Phosphorus Magnesium AST Alkaline Phosphatase C-Reactive Protein Total Protein Albumin Lipase Vitamin B12 TSH Urine WBC (Auto) Urine Chloride Urine Total Protein Crossmatch 10/26/16 10/26/16 10/26/16 05:02 12:11 12:14 WBC RBC Hgb Hct MCV RDW Plt Count Lymph % (Auto) [place] % (Auto) [place] # Seg Neutrophils % Seg Neuts % (Manual) Lymphocytes % (Manual) Monocytes % (Manual) Nucleated RBC % Seg Neutrophils # Seg Neutrophils # Man Lymphocytes # (Manual) Monocytes # (Manual) Eosinophils # (Manual) Basophils # (Manual) PT INR APTT Heparin Anti-Xa Level POC ABG pH POC ABG pCO2 32.0 L POC ABG pO2 33 L Sodium Potassium 3.2 L D Chloride Carbon Dioxide 20 L BUN 24 H Creatinine Glucose 104 H POC Glucose 194 H Calcium 7.7 L Phosphorus Magnesium AST Alkaline Phosphatase C-Reactive Protein Total Protein Albumin Lipase Vitamin B12 TSH Urine WBC (Auto) Urine Chloride Urine Total Protein Crossmatch 10/26/16 10/26/16 10/27/16 15:28 17:23 00:04 WBC RBC Hgb Hct MCV RDW Plt Count Lymph % (Auto) [place] % (Auto) [place] # Seg Neutrophils % Seg Neuts % (Manual) Lymphocytes % (Manual) Monocytes % (Manual) Nucleated RBC % Seg Neutrophils # Seg Neutrophils # Man Lymphocytes # (Manual) Monocytes # (Manual) Eosinophils # (Manual) Basophils # (Manual) PT INR APTT Heparin Anti-Xa Level POC ABG pH POC ABG pCO2 33.7 L POC ABG pO2 Sodium Potassium Chloride Carbon Dioxide BUN Creatinine Glucose POC Glucose 181 H 230 H Calcium Phosphorus Magnesium AST Alkaline Phosphatase C-Reactive Protein Total Protein Albumin Lipase Vitamin B12 TSH Urine WBC (Auto) Urine Chloride Urine Total Protein Crossmatch 10/27/16 10/27/16 10/27/16 05:15 05:15 05:38 WBC 25.5 H RBC 3.07 L Hgb 9.4 L Hct 30.1 L MCV 98 H RDW 16.4 H Plt Count 527 H Lymph % (Auto) [place] % (Auto) [place] # Seg Neutrophils % Seg Neuts % (Manual) Lymphocytes % (Manual) Monocytes % (Manual) Nucleated RBC % Seg Neutrophils # Seg Neutrophils # Man Lymphocytes # (Manual) Monocytes # (Manual) Eosinophils # (Manual) Basophils # (Manual) PT INR APTT Heparin Anti-Xa Level POC ABG pH POC ABG pCO2 POC ABG pO2 Sodium Potassium Chloride Carbon Dioxide 19 L BUN 23 H Creatinine Glucose 160 H POC Glucose 168 H Calcium 8.0 L Phosphorus Magnesium AST Alkaline Phosphatase C-Reactive Protein Total Protein Albumin Lipase Vitamin B12 TSH Urine WBC (Auto) Urine Chloride Urine Total Protein Crossmatch 10/27/16 10/27/16 10/27/16 11:59 18:35 23:48 WBC RBC Hgb Hct MCV RDW Plt Count Lymph % (Auto) [place] % (Auto) [place] # Seg Neutrophils % Seg Neuts % (Manual) Lymphocytes % (Manual) Monocytes % (Manual) Nucleated RBC % Seg Neutrophils # Seg Neutrophils # Man Lymphocytes # (Manual) Monocytes # (Manual) Eosinophils # (Manual) Basophils # (Manual) PT INR APTT Heparin Anti-Xa Level POC ABG pH POC ABG pCO2 POC ABG pO2 Sodium Potassium Chloride Carbon Dioxide BUN Creatinine Glucose POC Glucose 197 H 318 H 316 H Calcium Phosphorus Magnesium AST Alkaline Phosphatase C-Reactive Protein Total Protein Albumin Lipase Vitamin B12 TSH Urine WBC (Auto) Urine Chloride Urine Total Protein Crossmatch 10/28/16 10/28/16 10/28/16 03:13 04:10 04:10 WBC 18.8 H RBC 2.64 L Hgb 8.1 L Hct 26.1 L MCV 99 H RDW 16.2 H Plt Count 544 H Lymph % (Auto) [place] % (Auto) [place] # Seg Neutrophils % Seg Neuts % (Manual) Lymphocytes % (Manual) Monocytes % (Manual) Nucleated RBC % Seg Neutrophils # Seg Neutrophils # Man Lymphocytes # (Manual) Monocytes # (Manual) Eosinophils # (Manual) Basophils # (Manual) PT INR APTT Heparin Anti-Xa Level POC ABG pH POC ABG pCO2 POC ABG pO2 Sodium Potassium Chloride Carbon Dioxide 21 L BUN 24 H Creatinine Glucose 302 H POC Glucose 304 H Calcium 7.7 L Phosphorus Magnesium AST Alkaline Phosphatase C-Reactive Protein Total Protein Albumin Lipase Vitamin B12 TSH Urine WBC (Auto) Urine Chloride Urine Total Protein Crossmatch 10/28/16 10/28/16 10/28/16 04:10 12:36 18:27 WBC RBC Hgb Hct MCV RDW Plt Count Lymph % (Auto) [place] % (Auto) [place] # Seg Neutrophils % Seg Neuts % (Manual) Lymphocytes % (Manual) Monocytes % (Manual) Nucleated RBC % Seg Neutrophils # Seg Neutrophils # Man Lymphocytes # (Manual) Monocytes # (Manual) Eosinophils # (Manual) Basophils # (Manual) PT INR APTT Heparin Anti-Xa Level 0.20 L POC ABG pH POC ABG pCO2 POC ABG pO2 Sodium Potassium Chloride Carbon Dioxide BUN Creatinine Glucose POC Glucose 205 H 339 H Calcium Phosphorus Magnesium AST Alkaline Phosphatase C-Reactive Protein Total Protein Albumin Lipase Vitamin B12 TSH Urine WBC (Auto) Urine Chloride Urine Total Protein Crossmatch 10/29/16 10/29/16 10/29/16 01:05 06:19 09:30 WBC 20.3 H RBC 2.80 L Hgb 8.5 L Hct 26.7 L MCV RDW 15.4 H Plt Count 571 H Lymph % (Auto) [place] % (Auto) [place] # Seg Neutrophils % Seg Neuts % (Manual) 75.0 H Lymphocytes % (Manual) 4.0 L Monocytes % (Manual) Nucleated RBC % Seg Neutrophils # Seg Neutrophils # Man 15.2 H Lymphocytes # (Manual) 0.8 L Monocytes # (Manual) Eosinophils # (Manual) Basophils # (Manual) PT INR APTT Heparin Anti-Xa Level POC ABG pH POC ABG pCO2 POC ABG pO2 Sodium Potassium Chloride Carbon Dioxide BUN Creatinine Glucose POC Glucose 275 H 179 H Calcium Phosphorus Magnesium AST Alkaline Phosphatase C-Reactive Protein Total Protein Albumin Lipase Vitamin B12 TSH Urine WBC (Auto) Urine Chloride Urine Total Protein Crossmatch 10/29/16 10/29/16 10/29/16 11:46 15:18 17:55 WBC RBC Hgb Hct MCV RDW Plt Count Lymph % (Auto) [place] % (Auto) [place] # Seg Neutrophils % Seg Neuts % (Manual) Lymphocytes % (Manual) Monocytes % (Manual) Nucleated RBC % Seg Neutrophils # Seg Neutrophils # Man Lymphocytes # (Manual) Monocytes # (Manual) Eosinophils # (Manual) Basophils # (Manual) PT INR APTT Heparin Anti-Xa Level 1.15 H POC ABG pH POC ABG pCO2 POC ABG pO2 Sodium Potassium Chloride Carbon Dioxide BUN Creatinine Glucose POC Glucose 122 H 255 H Calcium Phosphorus Magnesium AST Alkaline Phosphatase C-Reactive Protein Total Protein Albumin Lipase Vitamin B12 TSH Urine WBC (Auto) Urine Chloride Urine Total Protein Crossmatch 10/30/16 10/30/16 10/30/16 00:10 05:30 05:30 WBC 19.8 H RBC 2.51 L Hgb 7.7 L Hct 24.1 L MCV RDW 15.5 H Plt Count 534 H Lymph % (Auto) [place] % (Auto) [place] # Seg Neutrophils % Seg Neuts % (Manual) Lymphocytes % (Manual) Monocytes % (Manual) Nucleated RBC % Seg Neutrophils # Seg Neutrophils # Man Lymphocytes # (Manual) Monocytes # (Manual) Eosinophils # (Manual) Basophils # (Manual) PT INR APTT Heparin Anti-Xa Level POC ABG pH POC ABG pCO2 POC ABG pO2 Sodium Potassium Chloride Carbon Dioxide BUN Creatinine Glucose 211 H POC Glucose 202 H Calcium 7.4 L Phosphorus Magnesium AST Alkaline Phosphatase C-Reactive Protein Total Protein Albumin Lipase Vitamin B12 TSH Urine WBC (Auto) Urine Chloride Urine Total Protein Crossmatch 10/30/16 10/30/16 10/30/16 06:32 12:51 17:47 WBC RBC Hgb Hct MCV RDW Plt Count Lymph % (Auto) [place] % (Auto) [place] # Seg Neutrophils % Seg Neuts % (Manual) Lymphocytes % (Manual) Monocytes % (Manual) Nucleated RBC % Seg Neutrophils # Seg Neutrophils # Man Lymphocytes # (Manual) Monocytes # (Manual) Eosinophils # (Manual) Basophils # (Manual) PT INR APTT Heparin Anti-Xa Level POC ABG pH POC ABG pCO2 POC ABG pO2 Sodium Potassium Chloride Carbon Dioxide BUN Creatinine Glucose POC Glucose 207 H 218 H 169 H Calcium Phosphorus Magnesium AST Alkaline Phosphatase C-Reactive Protein Total Protein Albumin Lipase Vitamin B12 TSH Urine WBC (Auto) Urine Chloride Urine Total Protein Crossmatch 10/30/16 10/31/16 10/31/16 23:59 05:25 11:21 WBC RBC Hgb Hct MCV RDW Plt Count Lymph % (Auto) [place] % (Auto) [place] # Seg Neutrophils % Seg Neuts % (Manual) Lymphocytes % (Manual) Monocytes % (Manual) Nucleated RBC % Seg Neutrophils # Seg Neutrophils # Man Lymphocytes # (Manual) Monocytes # (Manual) Eosinophils # (Manual) Basophils # (Manual) PT INR APTT Heparin Anti-Xa Level POC ABG pH POC ABG pCO2 POC ABG pO2 Sodium Potassium Chloride Carbon Dioxide BUN Creatinine Glucose POC Glucose 138 H 127 H 132 H Calcium Phosphorus Magnesium AST Alkaline Phosphatase C-Reactive Protein Total Protein Albumin Lipase Vitamin B12 TSH Urine WBC (Auto) Urine Chloride Urine Total Protein Crossmatch 10/31/16 10/31/16 11/01/16 17:07 23:54 05:47 WBC RBC Hgb Hct MCV RDW Plt Count Lymph % (Auto) [place] % (Auto) [place] # Seg Neutrophils % Seg Neuts % (Manual) Lymphocytes % (Manual) Monocytes % (Manual) Nucleated RBC % Seg Neutrophils # Seg Neutrophils # Man Lymphocytes # (Manual) Monocytes # (Manual) Eosinophils # (Manual) Basophils # (Manual) PT INR APTT Heparin Anti-Xa Level POC ABG pH POC ABG pCO2 POC ABG pO2 Sodium Potassium Chloride Carbon Dioxide BUN Creatinine Glucose POC Glucose 138 H 153 H 150 H Calcium Phosphorus Magnesium AST Alkaline Phosphatase C-Reactive Protein Total Protein Albumin Lipase Vitamin B12 TSH Urine WBC (Auto) Urine Chloride Urine Total Protein Crossmatch 11/01/16 11/01/16 11/01/16 06:33 06:33 12:16 WBC 19.2 H RBC 2.51 L Hgb 7.9 L Hct 24.8 L MCV 99 H D RDW 16.1 H Plt Count 569 H Lymph % (Auto) [place] % (Auto) [place] # Seg Neutrophils % Seg Neuts % (Manual) Lymphocytes % (Manual) Monocytes % (Manual) Nucleated RBC % Seg Neutrophils # Seg Neutrophils # Man Lymphocytes # (Manual) Monocytes # (Manual) Eosinophils # (Manual) Basophils # (Manual) PT INR APTT Heparin Anti-Xa Level POC ABG pH POC ABG pCO2 POC ABG pO2 Sodium Potassium 3.5 L Chloride Carbon Dioxide 21 L BUN Creatinine Glucose 137 H POC Glucose 125 H Calcium 7.7 L Phosphorus Magnesium AST Alkaline Phosphatase 148 H C-Reactive Protein Total Protein 6.2 L Albumin 2.0 L Lipase Vitamin B12 TSH Urine WBC (Auto) Urine Chloride Urine Total Protein Crossmatch 11/01/16 11/02/16 11/02/16 17:37 00:05 04:15 WBC RBC Hgb Hct MCV RDW Plt Count Lymph % (Auto) [place] % (Auto) [place] # Seg Neutrophils % Seg Neuts % (Manual) Lymphocytes % (Manual) Monocytes % (Manual) Nucleated RBC % Seg Neutrophils # Seg Neutrophils # Man Lymphocytes # (Manual) Monocytes # (Manual) Eosinophils # (Manual) Basophils # (Manual) PT INR APTT Heparin Anti-Xa Level < 0.10 L POC ABG pH POC ABG pCO2 POC ABG pO2 Sodium Potassium 3.2 L Chloride Carbon Dioxide BUN 6 L Creatinine Glucose 135 H POC Glucose 164 H Calcium 7.5 L Phosphorus Magnesium AST Alkaline Phosphatase 132 H C-Reactive Protein Total Protein 6.2 L Albumin 1.8 L Lipase Vitamin B12 TSH Urine WBC (Auto) Urine Chloride Urine Total Protein Crossmatch 11/02/16 11/02/16 11/02/16 04:15 05:54 12:15 WBC 17.7 H RBC 2.43 L Hgb 7.6 L Hct 23.5 L MCV RDW 15.9 H Plt Count 502 H Lymph % (Auto) [place] % (Auto) [place] # Seg Neutrophils % Seg Neuts % (Manual) 84.0 H Lymphocytes % (Manual) 11.0 L Monocytes % (Manual) Nucleated RBC % 1.0 H Seg Neutrophils # Seg Neutrophils # Man 14.9 H Lymphocytes # (Manual) Monocytes # (Manual) Eosinophils # (Manual) Basophils # (Manual) PT INR APTT Heparin Anti-Xa Level POC ABG pH POC ABG pCO2 POC ABG pO2 Sodium Potassium Chloride Carbon Dioxide BUN Creatinine Glucose POC Glucose 152 H 137 H Calcium Phosphorus Magnesium AST Alkaline Phosphatase C-Reactive Protein Total Protein Albumin Lipase Vitamin B12 TSH Urine WBC (Auto) Urine Chloride Urine Total Protein Crossmatch 11/02/16 11/03/16 11/03/16 17:00 00:05 00:05 WBC RBC Hgb Hct MCV RDW Plt Count Lymph % (Auto) [place] % (Auto) [place] # Seg Neutrophils % Seg Neuts % (Manual) Lymphocytes % (Manual) Monocytes % (Manual) Nucleated RBC % Seg Neutrophils # Seg Neutrophils # Man Lymphocytes # (Manual) Monocytes # (Manual) Eosinophils # (Manual) Basophils # (Manual) PT INR APTT Heparin Anti-Xa Level POC ABG pH POC ABG pCO2 POC ABG pO2 Sodium Potassium Chloride Carbon Dioxide 20 L BUN 5 L Creatinine Glucose 139 H POC Glucose 161 H Calcium 6.7 L Phosphorus Magnesium 1.2 L AST Alkaline Phosphatase C-Reactive Protein Total Protein Albumin Lipase Vitamin B12 TSH Urine WBC (Auto) Urine Chloride Urine Total Protein Crossmatch 11/03/16 11/03/16 11/03/16 00:05 02:05 04:23 WBC 15.9 H 14.0 H RBC 1.93 L 2.38 L Hgb 5.9 L* 7.3 L Hct 18.9 L* 23.1 L MCV 98 H RDW 15.9 H 15.9 H Plt Count Lymph % (Auto) [place] % (Auto) [place] # Seg Neutrophils % Seg Neuts % (Manual) 85.0 H Lymphocytes % (Manual) 4.0 L Monocytes % (Manual) Nucleated RBC % Seg Neutrophils # Seg Neutrophils # Man 13.5 H Lymphocytes # (Manual) 0.6 L Monocytes # (Manual) Eosinophils # (Manual) Basophils # (Manual) PT INR APTT Heparin Anti-Xa Level POC ABG pH POC ABG pCO2 POC ABG pO2 Sodium Potassium Chloride Carbon Dioxide BUN 5 L Creatinine Glucose 127 H POC Glucose Calcium 7.2 L Phosphorus Magnesium AST Alkaline Phosphatase C-Reactive Protein Total Protein 5.8 L Albumin 1.5 L Lipase Vitamin B12 TSH Urine WBC (Auto) Urine Chloride Urine Total Protein Crossmatch 11/03/16 11/03/16 11/03/16 09:14 09:27 11:54 WBC RBC Hgb Hct MCV RDW Plt Count Lymph % (Auto) [place] % (Auto) [place] # Seg Neutrophils % Seg Neuts % (Manual) Lymphocytes % (Manual) Monocytes % (Manual) Nucleated RBC % Seg Neutrophils # Seg Neutrophils # Man Lymphocytes # (Manual) Monocytes # (Manual) Eosinophils # (Manual) Basophils # (Manual) PT INR APTT Heparin Anti-Xa Level 0.11 L POC ABG pH POC ABG pCO2 POC ABG pO2 Sodium Potassium Chloride Carbon Dioxide BUN 5 L Creatinine Glucose 111 H POC Glucose 139 H Calcium 6.7 L Phosphorus Magnesium AST Alkaline Phosphatase C-Reactive Protein Total Protein Albumin Lipase Vitamin B12 TSH Urine WBC (Auto) Urine Chloride Urine Total Protein Crossmatch 11/03/16 11/03/16 11/03/16 16:26 18:01 18:01 WBC RBC Hgb Hct MCV RDW Plt Count Lymph % (Auto) [place] % (Auto) [place] # Seg Neutrophils % Seg Neuts % (Manual) Lymphocytes % (Manual) Monocytes % (Manual) Nucleated RBC % Seg Neutrophils # Seg Neutrophils # Man Lymphocytes # (Manual) Monocytes # (Manual) Eosinophils # (Manual) Basophils # (Manual) PT INR APTT Heparin Anti-Xa Level 2.00 H POC ABG pH POC ABG pCO2 POC ABG pO2 Sodium Potassium Chloride Carbon Dioxide BUN Creatinine Glucose POC Glucose 142 H Calcium Phosphorus Magnesium AST Alkaline Phosphatase C-Reactive Protein Total Protein Albumin Lipase Vitamin B12 TSH Urine WBC (Auto) Urine Chloride Urine Total Protein Crossmatch See Detail 11/04/16 11/04/16 11/04/16 02:15 02:15 06:35 WBC 11.8 H RBC 2.39 L Hgb 7.4 L Hct 23.1 L MCV RDW 15.9 H Plt Count Lymph % (Auto) [place] % (Auto) [place] # Seg Neutrophils % Seg Neuts % (Manual) 76.0 H Lymphocytes % (Manual) 12.0 L Monocytes % (Manual) 9.0 H Nucleated RBC % Seg Neutrophils # Seg Neutrophils # Man 9.0 H Lymphocytes # (Manual) Monocytes # (Manual) 1.1 H Eosinophils # (Manual) Basophils # (Manual) PT INR APTT Heparin Anti-Xa Level < 0.10 L POC ABG pH POC ABG pCO2 POC ABG pO2 Sodium Potassium Chloride Carbon Dioxide 21 L BUN 5 L Creatinine Glucose 112 H POC Glucose Calcium 6.8 L Phosphorus Magnesium AST Alkaline Phosphatase C-Reactive Protein Total Protein 5.7 L Albumin 1.7 L Lipase Vitamin B12 TSH Urine WBC (Auto) Urine Chloride Urine Total Protein Crossmatch 11/04/16 11/04/16 11/04/16 10:51 12:58 15:04 WBC RBC Hgb Hct MCV RDW Plt Count Lymph % (Auto) [place] % (Auto) [place] # Seg Neutrophils % Seg Neuts % (Manual) Lymphocytes % (Manual) Monocytes % (Manual) Nucleated RBC % Seg Neutrophils # Seg Neutrophils # Man Lymphocytes # (Manual) Monocytes # (Manual) Eosinophils # (Manual) Basophils # (Manual) PT INR APTT Heparin Anti-Xa Level 1.05 H POC ABG pH POC ABG pCO2 33.7 L POC ABG pO2 60 L Sodium Potassium Chloride Carbon Dioxide BUN Creatinine Glucose POC Glucose 118 H Calcium Phosphorus Magnesium AST Alkaline Phosphatase C-Reactive Protein Total Protein Albumin Lipase Vitamin B12 TSH Urine WBC (Auto) Urine Chloride Urine Total Protein Crossmatch 11/04/16 11/04/16 11/05/16 17:20 20:31 02:30 WBC RBC Hgb Hct MCV RDW Plt Count Lymph % (Auto) [place] % (Auto) [place] # Seg Neutrophils % Seg Neuts % (Manual) Lymphocytes % (Manual) Monocytes % (Manual) Nucleated RBC % Seg Neutrophils # Seg Neutrophils # Man Lymphocytes # (Manual) Monocytes # (Manual) Eosinophils # (Manual) Basophils # (Manual) PT INR APTT Heparin Anti-Xa Level POC ABG pH POC ABG pCO2 POC ABG pO2 Sodium Potassium 3.5 L Chloride Carbon Dioxide 18 L BUN 5 L Creatinine 0.6 L Glucose 110 H POC Glucose 228 H 169 H Calcium 7.1 L Phosphorus Magnesium AST Alkaline Phosphatase C-Reactive Protein Total Protein Albumin 1.9 L Lipase Vitamin B12 TSH Urine WBC (Auto) Urine Chloride Urine Total Protein Crossmatch 11/05/16 02:30 WBC 14.1 H RBC Hgb Hct MCV RDW 16.7 H Plt Count Lymph % (Auto) [place] % (Auto) [place] # Seg Neutrophils % Seg Neuts % (Manual) 80.0 H Lymphocytes % (Manual) 6.0 L Monocytes % (Manual) 8.0 H Nucleated RBC % Seg Neutrophils # Seg Neutrophils # Man 11.3 H Lymphocytes # (Manual) 0.8 L Monocytes # (Manual) 1.1 H Eosinophils # (Manual) Basophils # (Manual) PT INR APTT Heparin Anti-Xa Level POC ABG pH POC ABG pCO2 POC ABG pO2 Sodium Potassium Chloride Carbon Dioxide BUN Creatinine Glucose POC Glucose Calcium Phosphorus Magnesium AST Alkaline Phosphatase C-Reactive Protein Total Protein Albumin Lipase Vitamin B12 TSH Urine WBC (Auto) Urine Chloride Urine Total Protein Crossmatch Allied health notes reviewed: RT
--- NOTE | 2016-11-05 10:57 | Progress Note ---
Assessment and Plan Assessment and plan: 1. Acute respiratory failure with hypercapnia: Vent supported. s/p Trach and PEG. Continue with bronchodilators and wean as tolerated. 2. Diabetes mellitus type II. Continue Sliding scale insulin 3. Sepsis- Leukocytosis Improving Suspected due to UTI, urine has only grown Paula, sputum cultures grew group B strep, continue broad-spectrum antibiotics, infectious disease input appreciated 4. 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 The patient is scheduled for right lower extremity revascularization procedure today followed by a right [id number] amputation on Saturday. 5. Hypokalemia: Supplement potassium asd needed 6. Toxic metabolic encephalopathy. Continue supportive care. 7. Sinus Tachycardia. Physiologic secondary to sepsis. 8. Anemia: Multifactorial including sepsis. s/p transfusion of PRBCs. Continue to follow H&H. History Interval history: No new issues overnight. Hospitalist Physical - Constitutional Vitals: Temp Pulse Resp BP Pulse Ox 99.3 F 98 H 24 133/73 97 11/05/16 07:55 11/05/16 09:00 11/05/16 09:00 11/05/16 10:00 11/05/16 09:00 General appearance: Present: no acute distress - EENT Eyes: Present: PERRL, EOM intact ENT: hearing intact, clear oral mucosa, dentition normal - Neck Neck: Present: supple, normal ROM - Respiratory Respiratory effort: normal Respiratory: left: diminished, rhonchi - Cardiovascular Rhythm: regular Heart Sounds: Present: S1 & S2. Absent: gallop, rub - Extremities Extremities: no ischemia, No edema, Full ROM - Abdominal General gastrointestinal: soft, non-tender, non-distended, normal bowel sounds - Integumentary Integumentary: Present: clear, warm, dry - Neurologic Neurologic: CNII-XII intact, moves all extremities Results - Labs CBC & Chem 7: 11/05/16 02:30 11/05/16 02:30 Labs: Laboratory Last Values WBC 14.1 K/mm3 (4.5-11.0) H 11/05/16 02:30 RBC 3.77 M/mm3 (3.65-5.03) 11/05/16 02:30 Hgb 11.4 gm/dl (10.1-14.3) D 11/05/16 02:30 Hct 35.4 % (30.3-42.9) D 11/05/16 02:30 MCV 94 fl (79-97) D 11/05/16 02:30 MCH 30 pg (28-32) 11/05/16 02:30 MCHC 32 % (30-34) 11/05/16 02:30 RDW 16.7 % (13.2-15.2) H 11/05/16 02:30 Plt Count 376 K/mm3 (140-440) 11/05/16 02:30 Lymph % (Auto) Grievance And Appeals Specialist 11/04/16 02:15 [place] % (Auto) Grievance And Appeals Specialist 11/04/16 02:15 Eos % (Auto) Grievance And Appeals Specialist 11/04/16 02:15 Baso % (Auto) Grievance And Appeals Specialist 11/04/16 02:15 Lymph # Grievance And Appeals Specialist 11/04/16 02:15 [place] # Grievance And Appeals Specialist 11/04/16 02:15 Eos # Grievance And Appeals Specialist 11/04/16 02:15 Baso # Grievance And Appeals Specialist 11/04/16 02:15 Add Manual Diff Complete 11/05/16 02:30 Total Counted 100 11/05/16 02:30 Seg Neutrophils % Grievance And Appeals Specialist 11/04/16 02:15 Seg Neuts % (Manual) 80.0 % (40.0-70.0) H 11/05/16 02:30 Band Neutrophils % 0 % 11/05/16 02:30 Lymphocytes % (Manual) 6.0 % (13.4-35.0) L 11/05/16 02:30 Reactive Lymphs % (Man) 0 % 11/05/16 02:30 Monocytes % (Manual) 8.0 % (0.0-7.3) H 11/05/16 02:30 Eosinophils % (Manual) 0 % (0.0-4.3) 11/05/16 02:30 Basophils % (Manual) 0 % (0.0-1.8) 11/05/16 02:30 Metamyelocytes % 1.0 % 11/05/16 02:30 Myelocytes % 3.0 % 11/05/16 02:30 Promyelocytes % 2.0 % 11/05/16 02:30 Blast Cells % 0 % 11/05/16 02:30 Nucleated RBC % Not Reportable 11/05/16 02:30 Seg Neutrophils # Grievance And Appeals Specialist 11/04/16 02:15 Seg Neutrophils # Man 11.3 K/mm3 (1.8-7.7) H 11/05/16 02:30 Band Neutrophils # 0.0 K/mm3 11/05/16 02:30 Lymphocytes # (Manual) 0.8 K/mm3 (1.2-5.4) L 11/05/16 02:30 Abs React Lymphs (Man) 0.0 K/mm3 11/05/16 02:30 Monocytes # (Manual) 1.1 K/mm3 (0.0-0.8) H 11/05/16 02:30 Eosinophils # (Manual) 0.0 K/mm3 (0.0-0.4) 11/05/16 02:30 Basophils # (Manual) 0.0 K/mm3 (0.0-0.1) 11/05/16 02:30 Metamyelocytes # 0.1 K/mm3 11/05/16 02:30 Myelocytes # 0.4 K/mm3 11/05/16 02:30 Promyelocytes # 0.3 K/mm3 11/05/16 02:30 Blast Cells # 0.0 K/mm3 11/05/16 02:30 Pathologist Review 10/29/16 09:30 WBC Morphology Not Reportable 11/05/16 02:30 Hypersegmented Neuts Not Reportable 11/05/16 02:30 Hyposegmented Neuts Not Reportable 11/05/16 02:30 Hypogranular Neuts Not Reportable 11/05/16 02:30 Hypersegmented Polys TNR 10/17/16 07:08 Smudge Cells Not Reportable 11/05/16 02:30 Toxic Granulation Not Reportable 11/05/16 02:30 Toxic Vacuolation Not Reportable 11/05/16 02:30 Dohle Bodies Not Reportable 11/05/16 02:30 Pelger-Huet Anomaly Not Reportable 11/05/16 02:30 [place] Rods Not Reportable 11/05/16 02:30 Platelet Estimate Appears normal 11/05/16 02:30 Clumped Platelets Not Reportable 11/05/16 02:30 Plt Clumps, EDTA Not Reportable 11/05/16 02:30 Large Platelets Not Reportable 11/05/16 02:30 Giant Platelets Not Reportable 11/05/16 02:30 Platelet Satelliting Not Reportable 11/05/16 02:30 Plt Morphology Comment Not Reportable 11/05/16 02:30 RBC Morphology Not Reportable 11/05/16 02:30 Dimorphic RBCs Not Reportable 11/05/16 02:30 Polychromasia Few 11/05/16 02:30 Hypochromasia Not Reportable 11/05/16 02:30 Poikilocytosis Not Reportable 11/05/16 02:30 Basophilic Stippling TNR 10/17/16 07:08 Anisocytosis 1+ 11/05/16 02:30 Microcytosis Not Reportable 11/05/16 02:30 Macrocytosis Not Reportable 11/05/16 02:30 Spherocytes Not Reportable 11/05/16 02:30 Pappenheimer Bodies Not Reportable 11/05/16 02:30 Sickle Cells Not Reportable 11/05/16 02:30 Target Cells Not Reportable 11/05/16 02:30 Tear Drop Cells Not Reportable 11/05/16 02:30 Ovalocytes Not Reportable 11/05/16 02:30 Stomatocytes Few 11/03/16 00:05 Helmet Cells Not Reportable 11/05/16 02:30 [place] Bodies Not Reportable 11/05/16 02:30 [place] Rings Not Reportable 11/05/16 02:30 Jeannette Cells Not Reportable 11/05/16 02:30 Bite Cells Not Reportable 11/05/16 02:30 Crenated Cell Not Reportable 11/05/16 02:30 Elliptocytes Not Reportable 11/05/16 02:30 Acanthocytes (Spur) Not Reportable 11/05/16 02:30 Rouleaux Not Reportable 11/05/16 02:30 Hemoglobin C Crystals Not Reportable 11/05/16 02:30 Schistocytes Not Reportable 11/05/16 02:30 Malaria parasites Not Reportable 11/05/16 02:30 David Bodies Not Reportable 11/05/16 02:30 Hem Pathologist Commnt No 11/05/16 02:30 PT 16.4 Sec. (12.2-14.9) H 10/17/16 16:07 INR 1.33 (0.87-1.13) H 10/17/16 16:07 APTT 38.8 Sec. (24.2-36.6) H 10/17/16 16:07 Heparin Anti-Xa Level 0.42 U.I./ml (0.3-0.7) 11/05/16 02:30 POC ABG pH 7.394 (7.35-7.45) 11/04/16 12:58 POC ABG pCO2 33.7 (35-45) L 11/04/16 12:58 POC ABG pO2 60 (80-105) L 11/04/16 12:58 POC ABG HCO3 20.6 11/04/16 12:58 POC ABG Total CO2 22 11/04/16 12:58 POC ABG O2 Sat 91 11/04/16 12:58 POC ABG Base Excess -4 11/04/16 12:58 VBG pH 7.020 (7.320-7.420) L* 10/13/16 04:22 FiO2 25 % 11/04/16 12:58 Sodium 140 mmol/L (137-145) 11/05/16 02:30 Potassium 3.5 mmol/L (3.6-5.0) L 11/05/16 02:30 Chloride 105.7 mmol/L (98-107) 11/05/16 02:30 Carbon Dioxide 18 mmol/L (22-30) L 11/05/16 02:30 Anion Gap 20 mmol/L 11/05/16 02:30 BUN 5 mg/dL (7-17) L 11/05/16 02:30 Creatinine 0.6 mg/dL (0.7-1.2) L 11/05/16 02:30 Estimated GFR > 60 ml/min 11/05/16 02:30 BUN/Creatinine Ratio 8.33 % 11/05/16 02:30 Glucose 110 mg/dL (65-100) H 11/05/16 02:30 POC Glucose 169 (70-105) H 11/04/16 20:31 Osmolality 332 Mosm/kg 10/14/16 07:03 Lactic Acid 1.8 mmol/L (0.7-2.0) 10/14/16 07:03 Calcium 7.1 mg/dL (8.4-10.2) L 11/05/16 02:30 Phosphorus 2.7 mg/dL (2.5-4.5) D 10/21/16 Unknown Magnesium 1.2 mg/dL (1.7-2.3) L 11/03/16 00:05 Total Bilirubin 0.3 mg/dL (0.1-1.2) 11/05/16 02:30 AST 9 units/L (5-40) 11/05/16 02:30 ALT 11 units/L (7-56) 11/05/16 02:30 Alkaline Phosphatase 119 units/L (35-129) 11/05/16 02:30 Ammonia 35.0 umol/L (25-60) 10/13/16 05:40 Total Creatine Kinase 107 units/L (30-135) 10/13/16 04:22 CK-MB (CK-2) 3.1 ng/mL (0.0-4.0) 10/13/16 04:22 CK-MB (CK-2) Rel Index 2.8 (0-4) 10/13/16 04:22 Troponin T < 0.010 ng/mL (0.00-0.029) 10/14/16 18:55 C-Reactive Protein 10.50 mg/dL (0.00-1.30) H 10/13/16 16:14 Total Protein 6.7 g/dL (6.3-8.2) 11/05/16 02:30 Albumin 1.9 g/dL (3.9-5) L 11/05/16 02:30 Albumin/Globulin Ratio 0.4 % 11/05/16 02:30 Amylase 57 units/L (27-131) 10/26/16 20:00 Lipase 58 units/L (13-60) 10/26/16 20:00 Vitamin B12 976.8 pg/mL (211-911) H 10/22/16 10:25 TSH 0.162 mlU/mL (0.270-4.200) L 10/22/16 14:50 Free T4 0.77 ng/dL (0.76-1.46) 10/22/16 14:50 Urine Color Yellow (Yellow) 10/15/16 11:05 Urine Turbidity Cloudy (Clear) 10/15/16 11:05 Urine pH 5.0 (5.0-7.0) 10/15/16 11:05 Ur Specific [place] 1.009 (1.003-1.030) 10/15/16 11:05 Urine Protein 30 mg/dl mg/dL (Negative) 10/15/16 11:05 Urine Glucose (UA) 150 mg/dL (Negative) 10/15/16 11:05 Urine Ketones Neg mg/dL (Negative) 10/15/16 11:05 Urine Blood Lg (Negative) 10/15/16 11:05 Urine Nitrite Neg (Negative) 10/15/16 11:05 Urine Bilirubin Neg (Negative) 10/15/16 11:05 Urine Urobilinogen < 2.0 mg/dL (<2.0) 10/15/16 11:05 Ur Leukocyte Esterase Neg (Negative) 10/15/16 11:05 Urine WBC (Auto) 7.0 /HPF (0.0-6.0) H 10/15/16 11:05 Urine RBC (Auto) 7.0 /HPF (0.0-6.0) 10/15/16 11:05 U Epithel Cells (Auto) 1.0 /HPF (0-13.0) 10/15/16 11:05 Urine Mucus Few /HPF 10/15/16 11:05 Urine Yeast (Budding) 2+ /HPF 10/15/16 11:05 Urine Osmolality 487 Mosm/kg 10/13/16 Unknown Urine Creatinine < 4.2 mg/dL (0.1-20.0) 10/13/16 Unknown Protein/Creatinin Ratio 0.00 10/13/16 Unknown Urine Sodium 10 mEq/L 10/13/16 Unknown Urine Potassium 1.00 mEq/L 10/13/16 Unknown Urine Chloride 10.0 mEq/L (110-250) L 10/13/16 Unknown Urine Total Protein < 4 mg/dL (5-11.8) L 10/13/16 Unknown Vancomycin Trough 17.7 ug/mL (5.0-20.0) 10/22/16 10:25 Ketones 107.3 mg/dL (0.2-2.8) H 10/13/16 04:22 Blood Type A POSITIVE 11/03/16 18:01 Antibody Screen Negative 11/03/16 18:01 Crossmatch See Detail 11/03/16 18:01
[2016-11-05] MEDS ORDERED: HEPARIN/NS 5000 UNIT/500ML(CATH LAB) 500 ML IR ONE ×2 (11:14→12:04)
[2016-11-05] MEDS ORDERED: NACL 0.9% 1000 ML 1,000 ML ONE (11:15)
[2016-11-05] MEDS: VERSED ONE ×2 (11:47→12:05)
[2016-11-05] MEDS ORDERED: DILAUDID ONE (11:54)
[2016-11-05] MEDS: VANCOMYCIN VIAL 1,500 MG in NACL 0.9% 500 ML 500 ML IV SCH ×2 (13:35→22:01)
--- NOTE | 2016-11-05 15:10 | Operative Report ---
Operative Report Operative Report: EXAM: EXAM: RIGHT LOWER EXTREMITY REVASCULARIZATION CLINICAL INDICATION: ISCHEMIC RIGHT FOOT DATE: 11/05/2016 PROCEDURE: Following an explanation of the risks, benefits and alternatives; written informed consent was obtained. The patient was brought to the angiographic suite and placed in supine position on the examination table. Initial ultrasound evaluation of the left groin demonstrated a patent left Common femoral artery. The left groin was prepped and draped in the usual sterile fashion. 1% lidocaine was used for anesthesia. Under ultrasound guidance, the left common femoral artery was cannulated with a 7 cm 21-gauge needle. A 0.018 guidewire was advanced centrally. The needle was removed and a micro-sheath placed. The 0.018 guidewire was exchanged for a 0.035 guidewire and the micro-sheath exchanged for a 5 Turkish vascular sheath. A 5 Turkish Omni flush catheter was advanced over the guidewire to the distal abdominal aorta Julius. Digital subtraction aortography was performed at this point for anatomic localization. The distal abdominal aorta is widely patent. There is a 20% stenosis involving the origin of the right common iliac artery. The right external iliac arteries patent. The Omni flush catheter and a 0.035 guidewire were utilized to crossed bifurcation. Omni flush catheter was then advanced into the right external iliac artery. Additional digital subtraction angiography was performed at this point. The right common femoral artery is widely patent. The profunda is patent. There is occlusion of the superficial femoral artery 5 cm distal to his origin. No named vessels are identified distally. The Omni flush catheter was exchanged for a 4 Turkish vertebral catheter which was advanced into the occluded SFA. The guidewire and catheter easily advanced into the SFA. Digital subtraction angiography was performed at multiple points throughout the SFA demonstrating thrombus and atherosclerotic disease throughout the course of the SFA. There is reconstitution of a hibernating portion of distal SFA. The popliteal artery is occluded. I'll tibial vessels are occluded. No filling on delayed imaging is identified. Over the 0.035 guidewire, the 5 Turkish sheath was exchanged for a 7 Turkish 45 cm sheath. The tip was placed in the distal right common femoral artery. The 4 Turkish vertebral catheter and 0.035 guidewire were then advanced into the popliteal artery. Digital subtraction angiography was performed which demonstrates minimal opacification of the distal popliteal artery. On delayed imaging, a 3-4 cm segment of the anterior tibial artery is identified. The anterior tibial artery was then cannulated with the 0.035 guidewire and vertebral catheter. The vertebral catheter and guidewire were then advanced the midportion anterior tibial artery. Digital subtraction angiography was performed which demonstrates a patent vessel runoff to the foot although there is diminutive vasculature extending from mid ankle distally with poor venous drainage likely secondary to patient's ischemic foot and ankle. The 0.035 guidewire was exchanged for an 018 [place] core wire and the vertebral catheter removed. Atherectomy of the SFA was then performed using a 2.4/3.4 crown [employer] atherectomy device and proximal to distal. Atherectomy was performed in both bleeds up endplates down positions. Post atherectomy angioplasty throughout the SFA was then performed using a 5 mm x 200 mm balloon insufflated phenomenal pressure at multiple locations. Following atherectomy of the SFA, sluggish flow was present throughout the entire course of the SFA secondary to poor runoff vessels. With the guidewire still within the anterior tibial artery, angioplasty of the anterior tibial artery was performed using a 3 mm x 150 mm balloon the proximal portion including the origin. Additional digital subtraction angiography demonstrated flow throughout the anterior tibial artery however, there is sluggish outflow. The presumed location of the peroneal artery was then cannulated with the vertebral catheter and a V 18 guidewire. Together the vertebral catheter and guidewire were advanced into the midcalf. Digital subtraction angiography was performed which demonstrates a patent peroneal artery distally. Angioplasty of the peroneal artery was then performed using a 3 mm x 150 mm balloon. Additional angioplasty was then performed in the profunda using a 4 mm x 80 mm balloon inflated to nominal pressure for 2 minutes. At the conclusion of the procedure, the SFA and anterior tibial artery and peroneal artery are patent although there is sluggish flow secondary to decreased outflow. The catheters, guidewires and sheaths were removed and hemostasis achieved in the left groin using an Angio-Seal arterial closure device. Manual compression was also utilized secondary to leakage around the Angio-Seal. A sterile dressing was then applied. The patient tolerated the procedure well. There were no immediate post procedure complications. Minimal sedation was utilized secondary to patient's neurologic status. Continuous cardiopulmonary monitoring was utilized. IMPRESSION: 1) Right lower extremity angiography demonstrating occlusion of the SFA 45 cm distal to the origin and occlusion of all named vessels distally. 2) Revascularization of the SFA using atherectomy and angioplasty. 3) Revascularization of the anterior tibial artery and peroneal artery using angioplasty.
[2016-11-05] MEDS: NACL 0.9% 1000 ML 1,000 ML IV SCH (18:32)
[2016-11-05] MEDS: VERSED/NS 100MG/100ML 100 MG/100 ML BAG IV SCH (18:32)
--- NOTE | 2016-11-05 20:00 | Progress Note ---
Subjective Date of service: 11/05/16 Principal diagnosis: respiratory failure on mechanical ventilatory support, DKA Interval history: AWAKE. FEVER. Vital signs - Temp 101.4 CHEST - GOOD AIR ENTRY CVS - S1S2 ABD - BS_ LABS See lab section. ASSESSMENT 1. Sepsis 2. dka 3. resp failure 4. htn 5. clostridium difficile colitis 6. bilateral pneumonia 6. RIGHT LEG GANGRENE. RECOMMENDATION 1. cbc/bmp in am 2. CONTINUE IV CLINDAMYCIN 3. continue current care. 4. will add vancomycin Objective - Constitutional Vitals: Vital Signs Temp Pulse Resp BP Pulse Ox 101.1 F H 115 H 32 H 158/93 97 11/05/16 15:58 11/05/16 19:39 11/05/16 18:00 11/05/16 19:39 11/05/16 19:39 Temperature -Last 24 Hours Temperature 101.1 F Temperature 99.3 F Temperature 97.8 F Temperature 97.8 F Temperature 100.6 F Temperature 100.9 F Temperature 98.8 F - Labs CBC & Chem 7: 11/05/16 02:30 11/05/16 02:30 Labs: Abnormal lab results 11/01/16 11/01/16 11/01/16 Range/Units 05:47 12:16 17:37 WBC (4.5-11.0) K/mm3 RDW (13.2-15.2) % Seg Neuts % (Manual) (40.0-70.0) % Lymphocytes % (Manual) (13.4-35.0) % Monocytes % (Manual) (0.0-7.3) % Seg Neutrophils # Man (1.8-7.7) K/mm3 Lymphocytes # (Manual) (1.2-5.4) K/mm3 Monocytes # (Manual) (0.0-0.8) K/mm3 POC ABG pCO2 (35-45) POC ABG pO2 (80-105) Potassium (3.6-5.0) mmol/L Carbon Dioxide (22-30) mmol/L BUN (7-17) mg/dL Creatinine (0.7-1.2) mg/dL Glucose (65-100) mg/dL POC Glucose 150 H 125 H 164 H (70-105) Calcium (8.4-10.2) mg/dL Albumin (3.9-5) g/dL Crossmatch 11/02/16 11/02/16 11/02/16 Range/Units 05:54 12:15 17:00 WBC (4.5-11.0) K/mm3 RDW (13.2-15.2) % Seg Neuts % (Manual) (40.0-70.0) % Lymphocytes % (Manual) (13.4-35.0) % Monocytes % (Manual) (0.0-7.3) % Seg Neutrophils # Man (1.8-7.7) K/mm3 Lymphocytes # (Manual) (1.2-5.4) K/mm3 Monocytes # (Manual) (0.0-0.8) K/mm3 POC ABG pCO2 (35-45) POC ABG pO2 (80-105) Potassium (3.6-5.0) mmol/L Carbon Dioxide (22-30) mmol/L BUN (7-17) mg/dL Creatinine (0.7-1.2) mg/dL Glucose (65-100) mg/dL POC Glucose 152 H 137 H 161 H (70-105) Calcium (8.4-10.2) mg/dL Albumin (3.9-5) g/dL Crossmatch 11/03/16 11/03/16 11/03/16 Range/Units 11:54 16:26 18:01 WBC (4.5-11.0) K/mm3 RDW (13.2-15.2) % Seg Neuts % (Manual) (40.0-70.0) % Lymphocytes % (Manual) (13.4-35.0) % Monocytes % (Manual) (0.0-7.3) % Seg Neutrophils # Man (1.8-7.7) K/mm3 Lymphocytes # (Manual) (1.2-5.4) K/mm3 Monocytes # (Manual) (0.0-0.8) K/mm3 POC ABG pCO2 (35-45) POC ABG pO2 (80-105) Potassium (3.6-5.0) mmol/L Carbon Dioxide (22-30) mmol/L BUN (7-17) mg/dL Creatinine (0.7-1.2) mg/dL Glucose (65-100) mg/dL POC Glucose 139 H 142 H (70-105) Calcium (8.4-10.2) mg/dL Albumin (3.9-5) g/dL Crossmatch See Detail 11/04/16 11/04/16 11/04/16 Range/Units 10:51 12:58 17:20 WBC (4.5-11.0) K/mm3 RDW (13.2-15.2) % Seg Neuts % (Manual) (40.0-70.0) % Lymphocytes % (Manual) (13.4-35.0) % Monocytes % (Manual) (0.0-7.3) % Seg Neutrophils # Man (1.8-7.7) K/mm3 Lymphocytes # (Manual) (1.2-5.4) K/mm3 Monocytes # (Manual) (0.0-0.8) K/mm3 POC ABG pCO2 33.7 L (35-45) POC ABG pO2 60 L (80-105) Potassium (3.6-5.0) mmol/L Carbon Dioxide (22-30) mmol/L BUN (7-17) mg/dL Creatinine (0.7-1.2) mg/dL Glucose (65-100) mg/dL POC Glucose 118 H 228 H (70-105) Calcium (8.4-10.2) mg/dL Albumin (3.9-5) g/dL Crossmatch 11/04/16 11/05/16 11/05/16 Range/Units 20:31 02:30 02:30 WBC 14.1 H (4.5-11.0) K/mm3 RDW 16.7 H (13.2-15.2) % Seg Neuts % (Manual) 80.0 H (40.0-70.0) % Lymphocytes % (Manual) 6.0 L (13.4-35.0) % Monocytes % (Manual) 8.0 H (0.0-7.3) % Seg Neutrophils # Man 11.3 H (1.8-7.7) K/mm3 Lymphocytes # (Manual) 0.8 L (1.2-5.4) K/mm3 Monocytes # (Manual) 1.1 H (0.0-0.8) K/mm3 POC ABG pCO2 (35-45) POC ABG pO2 (80-105) Potassium 3.5 L (3.6-5.0) mmol/L Carbon Dioxide 18 L (22-30) mmol/L BUN 5 L (7-17) mg/dL Creatinine 0.6 L (0.7-1.2) mg/dL Glucose 110 H (65-100) mg/dL POC Glucose 169 H (70-105) Calcium 7.1 L (8.4-10.2) mg/dL Albumin 1.9 L (3.9-5) g/dL Crossmatch 11/05/16 Range/Units 17:52 WBC (4.5-11.0) K/mm3 RDW (13.2-15.2) % Seg Neuts % (Manual) (40.0-70.0) % Lymphocytes % (Manual) (13.4-35.0) % Monocytes % (Manual) (0.0-7.3) % Seg Neutrophils # Man (1.8-7.7) K/mm3 Lymphocytes # (Manual) (1.2-5.4) K/mm3 Monocytes # (Manual) (0.0-0.8) K/mm3 POC ABG pCO2 (35-45) POC ABG pO2 (80-105) Potassium (3.6-5.0) mmol/L Carbon Dioxide (22-30) mmol/L BUN (7-17) mg/dL Creatinine (0.7-1.2) mg/dL Glucose (65-100) mg/dL POC Glucose 174 H (70-105) Calcium (8.4-10.2) mg/dL Albumin (3.9-5) g/dL Crossmatch
[2016-11-05] MEDS: CLEOCIN 600 MG/50 mL 600 MG/50 ML BAG IV SCH ×2 (22:03→22:30)
[2016-11-05] MEDS: LEVAQUIN 750MG/150ML 750 MG/150 ML BAG IV SCH (22:04)
[2016-11-06] MEDS: HEPARIN/ 0.45% NACL-25,000 UNIT/500 ML 25,000 UNITS/500 ML BAG IV SCH ×2 (00:54→22:43)
[2016-11-06 05:41] LABS: Hematocrit 30.8 % (30.3-42.9); Mean Corpuscular HGB Conc 33 % (30-34); Mean Corpuscular Hemoglobin 31 pg (28-32); Mean Corpuscular Volume 94 fl (79-97); Platelet Count 311 K/mm3 (140-440); Red Blood Count 3.29 M/mm3 (3.65-5.03); Red Cell Distribution Width 16.9 % (13.2-15.2); White Blood Count 15.2 K/mm3 (4.5-11.0)
[2016-11-06 06:01] LABS: Anion Gap 16 mmol/L; BUN/Creatinine Ratio 6.66; Blood Urea Nitrogen 4 mg/dL (7-17); Calcium 6.7 mg/dL (8.4-10.2); Carbon Dioxide 20 mmol/L (22-30); Chloride 107.1 mmol/L (98-107); Glucose 104 mg/dL (65-100); Potassium 3.5 mmol/L (3.6-5.0); Sodium 140 mmol/L (137-145)
[2016-11-06] MEDS: CLEOCIN 600 MG/50 mL 600 MG/50 ML BAG IV SCH ×3 (06:06→22:29)
[2016-11-06] MEDS: LOPRESSOR FEEDTUBE SCH ×3 (06:17→22:32)
[2016-11-06] MEDS: fentaNYL DRIP Premix 2,000 MCG/100 ML BAG IV SCH ×3 (07:24→20:02)
--- NOTE | 2016-11-06 07:31 | Vascular Lab Report ---
MISCELLANEOUS VESSEL IDENTIFICATION: COMMENTS ON THE SCAN: The left common femoral artery was identified and under real-time ultrasound guidance was cannulated. IMPRESSION: Successful ultrasound guided arterial cannulation.
--- NOTE | 2016-11-06 08:24 | Anesthesia Day of Surgery ---
Anesthesia Day of Surgery - Day of Surgery Patient Examined: Yes Patient H&P Reviewed: Yes Patient is NPO: Yes
--- NOTE | 2016-11-06 08:24 | Anesthesia Consultation ---
Anesthesia Consult and Med Hx Date of service: 11/06/16 - Pulmonary Exam CTA: Yes - Cardiac Exam Cardiac Exam: RRR - Pre-Operative Health Status ASA Pre-Surgery Classification: ASA4 Proposed Anesthetic Plan: General - Pulmonary Hx Smoking: No Hx Asthma: Yes Hx Respiratory Symptoms: Yes (resp failure. trach in place) COPD: No Hx Pneumonia: No Hx Sleep Apnea: No - Cardiovascular System Hx Hypertension: Yes Hx Coronary Artery Disease: Yes Hx Heart Attack/AMI: No Hx Angina: No Hx Percutaneous Transluminal Coronary Angioplasty (PTCA): No Hx Pacemaker: No Hx Internal Defibrillator: No Hx Valvular Heart Disease: No Hx Heart Murmur: No Hx Peripheral Vascular Disease: Yes (underwent cathlab revascularization on . on heparin drip now.) - Central Nervous System Hx Psychiatric Problems: No - Gastrointestinal Hx Ulcer: No - Endocrine Hx Renal Disease: Yes (CKD) Hx End Stage Renal Disease: No Hx Cirrhosis: No Hx Insulin Dependent Diabetes: Yes (admited with severe ketoacidosis) - Other Systems Hx Cancer: No - Additional Comments Anesthesia Medical History Comments: PEG and trach at the bedside
[2016-11-06] MEDS ORDERED: DILAUDID ONE (09:36)
[2016-11-06] MEDS ORDERED: ZOFRAN ONE (09:40)
[2016-11-06] MEDS ORDERED: DECADRON ONE (09:42)
--- NOTE | 2016-11-06 10:35 | Operative Report ---
Operative Report Operative Report: Date of procedure: 11/06/2016 Pre-operative diagnosis: Right Lower Extremity Gangrene Post-operative diagnosis: Same Procedure(s): Right Below Knee Amputation Surgeon: Benny Troncoso MD Hematology Nurse Educator: Shun Lloyd PA-C Anesthesia: Monitored anesthesia EBL: 200 mL Counts: Correct Complications: None Condition: Stable Findings: Below-knee amputation performed muscle appeared pale but viable. The incision was able to be closed without any tension. Specimen: Right Leg Sent to Pathology Indication: The patient is a 66-year-old female who presented to the hospital with acute mental status changes requiring intubation and prolonged stay in the intensive care unit. During this stay she developed a cold right leg likely secondary to an embolus versus thrombosis however she was too unstable to intervene at that time. Once she was stabilized she was taken [facility] for revascularization of the lower extremity hopes of salvaging the below-knee amputation. The patient was then offered the below-knee amputation. There were given the risks, benefits, and alternative procedures and consented to procedure. Description of Procedure: The patient was brought to the operating room and laid in supine position after general endotracheal anesthesia the patient's right leg was prepped and draped in normal sterile fashion. A transverse incision was then created approximately 3 fingerbreadths below the tibial tuberosity and carried the incision down distally to create a posterior flap, using a 10 blade. Electrocautery was then used to divide the muscle down to the tibia and then down to the fibula. I then used a periosteal elevator to elevate the periosteum on the tibia approximately 2 cm above the incision and then I used an oscillating saw to divide the tibia. I then used a double-action bone cutter to divide the fibula approximately 2 cm above the tibia. I divided the remainder of the soft tissue using electrocautery and passed the specimen off. I identified the neurovascular bundle and ligated both the vein and artery using 0 silk stick ties. I then used 0 silk to perform high ligation of the nerve. I achieved hemostasis using electrocautery and direct pressure. Once hemostasis was achieved I used a rasps to smooth the tibia and then copiously irrigated the wound with saline. I then closed the wound in 2 layers using 0 Vicryl to reapproximate the fascia and roxane to close the skin. I dressed the wound with Xeroform gauze, fluffs, ABDs, Kerlix, and an Jorge bandage. I placed an appropriately sized knee immobilizer. The patient tolerated the procedure well all sponge needle and instrument counts were the patient was taken to recovery in stable condition.
[2016-11-06] MEDS: DILAUDID IV PRN ×6 (10:48→16:35)
--- NOTE | 2016-11-06 11:03 | Progress Note ---
Assessment and Plan - Patient Problems (1) Acute respiratory failure with hypercapnia Current Visit: Yes Status: Acute Plan to address problem: - continue aspiration precautions / VAP bundles - continue bronchodilators and pulmonary toilet - wean oxygen to keep sats > 94% - will resume graded weaning at Psupp of 20 cmH2O 0post operative interventions (2) Altered mental status Current Visit: Yes Status: Acute Qualifiers: Altered mental status type: A Coma depth: C Coma timing: C Plan to address problem: - no active seizures - following clinically - seen by neurology and will follow their recommendations - no seizures on EEG - more appropriate clinically (3) LUCY (acute kidney injury) Current Visit: Yes Status: Acute Plan to address problem: - resolved - follow I's & O's (4) DKA (diabetic ketoacidoses) Current Visit: Yes Status: Acute Qualifiers: Diabetes mellitus type: D Diabetes mellitus complication detail: D Plan to address problem: - resolved - continue SSI (5) Sepsis Current Visit: No Status: Acute Qualifiers: Sepsis type: S Plan to address problem: - continue anti-infectives per ID recs - follow clinically - trend lactate and CRP prn - hopefully improves post amputation (6) Discharge planning issues Current Visit: No Status: Acute Plan to address problem: ...hopefully can begin weaning in am ...remains critically ill on life sustaining treatments including MVS and at high risk for further deterioration including ...34' CCT Subjective Date of service: 11/06/16 Principal diagnosis: respiratory failure on mechanical ventilatory support, DKA Interval history: Seen and examined at bedside; 24 hour events reviewed; nursing and respiratory care staff consulted; no adverse overnight events reported to me; 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; no new issues otherwise but remains on MVS Objective Vital Signs - 12hr 11/05/16 11/05/16 11/06/16 23:40 23:44 00:00 Temperature 101.8 F H Pulse Rate 108 H 108 H Respiratory 21 18 Rate Blood Pressure 158/74 162/72 O2 Sat by Pulse 98 94 Oximetry O2 Sat by Pulse Oximetry [ Assessment] 11/06/16 11/06/16 11/06/16 00:35 00:48 01:00 Temperature Pulse Rate 113 H 113 H Respiratory 23 Rate Blood Pressure 156/80 160/78 O2 Sat by Pulse 98 95 Oximetry O2 Sat by Pulse 98 Oximetry [ Assessment] 11/06/16 11/06/16 11/06/16 02:00 03:00 04:00 Temperature 100.3 F H Pulse Rate 106 H 101 H 104 H Respiratory 25 H 18 16 Rate Blood Pressure 152/77 151/75 145/71 O2 Sat by Pulse 94 94 94 Oximetry O2 Sat by Pulse Oximetry [ Assessment] 11/06/16 11/06/16 11/06/16 05:00 06:00 06:03 Temperature Pulse Rate 99 H 99 H 106 H Respiratory 20 20 Rate Blood Pressure 138/73 126/67 126/67 O2 Sat by Pulse 95 94 98 Oximetry O2 Sat by Pulse Oximetry [ Assessment] 11/06/16 11/06/16 11/06/16 07:00 07:56 08:00 Temperature 99.0 F Pulse Rate 101 H 93 H Respiratory 18 17 Rate Blood Pressure 136/71 122/58 O2 Sat by Pulse 96 98 95 Oximetry O2 Sat by Pulse Oximetry [ Assessment] 11/06/16 11/06/16 11/06/16 08:57 09:00 10:36 Temperature 98.6 F Pulse Rate 107 H 112 H Respiratory 12 Rate Blood Pressure 117/66 117/66 154/79 O2 Sat by Pulse 97 98 Oximetry O2 Sat by Pulse Oximetry [ Assessment] Constitutional: no acute distress, other (? delirium / dementia element) Eyes: non-icteric ENT: oropharynx moist Neck: supple, no lymphadenopathy Effort: mildly labored Ascultation: Bilateral: diminished breath sounds, rales (bases) Cardiovascular: regular rate and rhythm, other (tachycardia) Gastrointestinal: normoactive bowel sounds, soft, non-tender, non-distended Integumentary: normal Extremities: no cyanosis, no edema, no ischemia or petechiae, other (cold right foot with digital ischemia) Neurologic: non-focal exam (grossly), unable to assess Psychiatric: other (sedated) CBC and BMP: 11/07/16 Unknown 11/07/16 Unknown ABG, PT/INR, D-dimer: ABG POC ABG pH 7.394 (7.35-7.45) 11/04/16 12:58 POC ABG pCO2 33.7 (35-45) L 11/04/16 12:58 POC ABG pO2 60 (80-105) L 11/04/16 12:58 POC ABG HCO3 20.6 11/04/16 12:58 POC ABG Total CO2 22 11/04/16 12:58 POC ABG O2 Sat 91 11/04/16 12:58 PT/INR, D-dimer PT 16.4 Sec. (12.2-14.9) H 10/17/16 16:07 INR 1.33 (0.87-1.13) H 10/17/16 16:07 Abnormal lab findings: Abnormal Labs 10/13/16 10/13/16 10/13/16 06:38 06:38 07:23 WBC RBC Hgb Hct MCV RDW Plt Count Lymph % (Auto) [place] % (Auto) [place] # Seg Neutrophils % Seg Neuts % (Manual) Lymphocytes % (Manual) Monocytes % (Manual) Nucleated RBC % Seg Neutrophils # Seg Neutrophils # Man Lymphocytes # (Manual) Monocytes # (Manual) Eosinophils # (Manual) Basophils # (Manual) PT INR APTT Heparin Anti-Xa Level POC ABG pH POC ABG pCO2 POC ABG pO2 Sodium Potassium 6.2 H* Chloride Carbon Dioxide 8 L* BUN 85 H Creatinine 2.8 H Glucose 602 H* POC Glucose 495 H Calcium 7.9 L Phosphorus 6.9 H D Magnesium 3.0 H AST Alkaline Phosphatase C-Reactive Protein Total Protein Albumin Lipase Vitamin B12 TSH Urine WBC (Auto) Urine Chloride Urine Total Protein Crossmatch 10/13/16 10/13/16 10/13/16 08:49 08:55 10:12 WBC RBC Hgb Hct MCV RDW Plt Count Lymph % (Auto) [place] % (Auto) [place] # Seg Neutrophils % Seg Neuts % (Manual) Lymphocytes % (Manual) Monocytes % (Manual) Nucleated RBC % Seg Neutrophils # Seg Neutrophils # Man Lymphocytes # (Manual) Monocytes # (Manual) Eosinophils # (Manual) Basophils # (Manual) PT INR APTT Heparin Anti-Xa Level POC ABG pH POC ABG pCO2 POC ABG pO2 Sodium Potassium 5.6 H Chloride Carbon Dioxide 11 L BUN 77 H Creatinine 2.7 H Glucose 457 H POC Glucose > 500 H 424 H Calcium 8.0 L Phosphorus Magnesium AST Alkaline Phosphatase C-Reactive Protein Total Protein Albumin Lipase Vitamin B12 TSH Urine WBC (Auto) Urine Chloride Urine Total Protein Crossmatch 10/13/16 10/13/16 10/13/16 10:44 11:22 12:20 WBC RBC Hgb Hct MCV RDW Plt Count Lymph % (Auto) [place] % (Auto) [place] # Seg Neutrophils % Seg Neuts % (Manual) Lymphocytes % (Manual) Monocytes % (Manual) Nucleated RBC % Seg Neutrophils # Seg Neutrophils # Man Lymphocytes # (Manual) Monocytes # (Manual) Eosinophils # (Manual) Basophils # (Manual) PT INR APTT Heparin Anti-Xa Level POC ABG pH POC ABG pCO2 POC ABG pO2 Sodium Potassium 5.4 H Chloride Carbon Dioxide 14 L BUN 72 H Creatinine 2.6 H Glucose 383 H POC Glucose 391 H 313 H Calcium 8.2 L Phosphorus Magnesium AST Alkaline Phosphatase C-Reactive Protein Total Protein Albumin Lipase Vitamin B12 TSH Urine WBC (Auto) Urine Chloride Urine Total Protein Crossmatch 10/13/16 10/13/16 10/13/16 13:32 14:44 15:57 WBC RBC Hgb Hct MCV RDW Plt Count Lymph % (Auto) [place] % (Auto) [place] # Seg Neutrophils % Seg Neuts % (Manual) Lymphocytes % (Manual) Monocytes % (Manual) Nucleated RBC % Seg Neutrophils # Seg Neutrophils # Man Lymphocytes # (Manual) Monocytes # (Manual) Eosinophils # (Manual) Basophils # (Manual) PT INR APTT Heparin Anti-Xa Level POC ABG pH POC ABG pCO2 POC ABG pO2 Sodium Potassium Chloride Carbon Dioxide BUN Creatinine Glucose POC Glucose 296 H 210 H 190 H Calcium Phosphorus Magnesium AST Alkaline Phosphatase C-Reactive Protein Total Protein Albumin Lipase Vitamin B12 TSH Urine WBC (Auto) Urine Chloride Urine Total Protein Crossmatch 10/13/16 10/13/16 10/13/16 16:14 16:14 17:17 WBC RBC Hgb Hct MCV RDW Plt Count Lymph % (Auto) [place] % (Auto) [place] # Seg Neutrophils % Seg Neuts % (Manual) Lymphocytes % (Manual) Monocytes % (Manual) Nucleated RBC % Seg Neutrophils # Seg Neutrophils # Man Lymphocytes # (Manual) Monocytes # (Manual) Eosinophils # (Manual) Basophils # (Manual) PT INR APTT Heparin Anti-Xa Level POC ABG pH POC ABG pCO2 POC ABG pO2 Sodium Potassium Chloride Carbon Dioxide 17 L BUN 58 H Creatinine 1.8 H Glucose 172 H POC Glucose 193 H Calcium 7.7 L Phosphorus Magnesium AST Alkaline Phosphatase C-Reactive Protein 10.50 H Total Protein Albumin Lipase Vitamin B12 TSH Urine WBC (Auto) Urine Chloride Urine Total Protein Crossmatch 10/13/16 10/13/16 10/13/16 17:55 18:32 19:41 WBC RBC Hgb Hct MCV RDW Plt Count Lymph % (Auto) [place] % (Auto) [place] # Seg Neutrophils % Seg Neuts % (Manual) Lymphocytes % (Manual) Monocytes % (Manual) Nucleated RBC % Seg Neutrophils # Seg Neutrophils # Man Lymphocytes # (Manual) Monocytes # (Manual) Eosinophils # (Manual) Basophils # (Manual) PT INR APTT Heparin Anti-Xa Level POC ABG pH POC ABG pCO2 30.6 L POC ABG pO2 218 H Sodium Potassium Chloride Carbon Dioxide BUN Creatinine Glucose POC Glucose 192 H 177 H Calcium Phosphorus Magnesium AST Alkaline Phosphatase C-Reactive Protein Total Protein Albumin Lipase Vitamin B12 TSH Urine WBC (Auto) Urine Chloride Urine Total Protein Crossmatch 10/13/16 10/13/16 10/13/16 20:54 22:07 23:13 WBC RBC Hgb Hct MCV RDW Plt Count Lymph % (Auto) [place] % (Auto) [place] # Seg Neutrophils % Seg Neuts % (Manual) Lymphocytes % (Manual) Monocytes % (Manual) Nucleated RBC % Seg Neutrophils # Seg Neutrophils # Man Lymphocytes # (Manual) Monocytes # (Manual) Eosinophils # (Manual) Basophils # (Manual) PT INR APTT Heparin Anti-Xa Level POC ABG pH POC ABG pCO2 POC ABG pO2 Sodium Potassium Chloride Carbon Dioxide BUN Creatinine Glucose POC Glucose 178 H 160 H 168 H Calcium Phosphorus Magnesium AST Alkaline Phosphatase C-Reactive Protein Total Protein Albumin Lipase Vitamin B12 TSH Urine WBC (Auto) Urine Chloride Urine Total Protein Crossmatch 10/13/16 10/13/16 10/14/16 23:25 Unknown 00:21 WBC RBC Hgb Hct MCV RDW Plt Count Lymph % (Auto) [place] % (Auto) [place] # Seg Neutrophils % Seg Neuts % (Manual) Lymphocytes % (Manual) Monocytes % (Manual) Nucleated RBC % Seg Neutrophils # Seg Neutrophils # Man Lymphocytes # (Manual) Monocytes # (Manual) Eosinophils # (Manual) Basophils # (Manual) PT INR APTT Heparin Anti-Xa Level POC ABG pH POC ABG pCO2 POC ABG pO2 Sodium 148 H Potassium Chloride 114.6 H Carbon Dioxide 17 L BUN 56 H Creatinine 1.6 H Glucose 151 H POC Glucose 171 H Calcium 7.8 L Phosphorus Magnesium AST Alkaline Phosphatase C-Reactive Protein Total Protein Albumin Lipase Vitamin B12 TSH Urine WBC (Auto) Urine Chloride 10.0 L Urine Total Protein < 4 L Crossmatch 10/14/16 10/14/16 10/14/16 01:22 02:29 03:30 WBC RBC Hgb Hct MCV RDW Plt Count Lymph % (Auto) [place] % (Auto) [place] # Seg Neutrophils % Seg Neuts % (Manual) Lymphocytes % (Manual) Monocytes % (Manual) Nucleated RBC % Seg Neutrophils # Seg Neutrophils # Man Lymphocytes # (Manual) Monocytes # (Manual) Eosinophils # (Manual) Basophils # (Manual) PT INR APTT Heparin Anti-Xa Level POC ABG pH POC ABG pCO2 POC ABG pO2 Sodium Potassium Chloride Carbon Dioxide BUN Creatinine Glucose POC Glucose 144 H 136 H 143 H Calcium Phosphorus Magnesium AST Alkaline Phosphatase C-Reactive Protein Total Protein Albumin Lipase Vitamin B12 TSH Urine WBC (Auto) Urine Chloride Urine Total Protein Crossmatch 10/14/16 10/14/16 10/14/16 04:28 05:16 05:44 WBC RBC Hgb Hct MCV RDW Plt Count Lymph % (Auto) [place] % (Auto) [place] # Seg Neutrophils % Seg Neuts % (Manual) Lymphocytes % (Manual) Monocytes % (Manual) Nucleated RBC % Seg Neutrophils # Seg Neutrophils # Man Lymphocytes # (Manual) Monocytes # (Manual) Eosinophils # (Manual) Basophils # (Manual) PT INR APTT Heparin Anti-Xa Level POC ABG pH POC ABG pCO2 28.2 L POC ABG pO2 125 H Sodium Potassium Chloride Carbon Dioxide BUN Creatinine Glucose POC Glucose 133 H 160 H Calcium Phosphorus Magnesium AST Alkaline Phosphatase C-Reactive Protein Total Protein Albumin Lipase Vitamin B12 TSH Urine WBC (Auto) Urine Chloride Urine Total Protein Crossmatch 10/14/16 10/14/16 10/14/16 06:12 06:45 07:03 WBC RBC Hgb Hct MCV RDW Plt Count Lymph % (Auto) [place] % (Auto) [place] # Seg Neutrophils % Seg Neuts % (Manual) Lymphocytes % (Manual) Monocytes % (Manual) Nucleated RBC % Seg Neutrophils # Seg Neutrophils # Man Lymphocytes # (Manual) Monocytes # (Manual) Eosinophils # (Manual) Basophils # (Manual) PT INR APTT Heparin Anti-Xa Level POC ABG pH POC ABG pCO2 POC ABG pO2 Sodium 149 H Potassium Chloride 115.4 H Carbon Dioxide 17 L BUN 45 H Creatinine 1.5 H Glucose 139 H POC Glucose 149 H Calcium 7.4 L Phosphorus 1.0 L D Magnesium AST Alkaline Phosphatase C-Reactive Protein Total Protein Albumin Lipase Vitamin B12 TSH Urine WBC (Auto) Urine Chloride Urine Total Protein Crossmatch 10/14/16 10/14/16 10/14/16 07:03 08:02 09:16 WBC RBC Hgb Hct MCV RDW Plt Count Lymph % (Auto) [place] % (Auto) [place] # Seg Neutrophils % Seg Neuts % (Manual) Lymphocytes % (Manual) Monocytes % (Manual) Nucleated RBC % Seg Neutrophils # Seg Neutrophils # Man Lymphocytes # (Manual) Monocytes # (Manual) Eosinophils # (Manual) Basophils # (Manual) PT INR APTT Heparin Anti-Xa Level POC ABG pH POC ABG pCO2 POC ABG pO2 Sodium Potassium Chloride Carbon Dioxide BUN Creatinine Glucose POC Glucose 156 H 158 H Calcium Phosphorus Magnesium AST Alkaline Phosphatase C-Reactive Protein Total Protein Albumin Lipase 738 H Vitamin B12 TSH Urine WBC (Auto) Urine Chloride Urine Total Protein Crossmatch 10/14/16 10/14/16 10/14/16 10:26 11:03 11:57 WBC RBC Hgb Hct MCV RDW Plt Count Lymph % (Auto) [place] % (Auto) [place] # Seg Neutrophils % Seg Neuts % (Manual) Lymphocytes % (Manual) Monocytes % (Manual) Nucleated RBC % Seg Neutrophils # Seg Neutrophils # Man Lymphocytes # (Manual) Monocytes # (Manual) Eosinophils # (Manual) Basophils # (Manual) PT INR APTT Heparin Anti-Xa Level POC ABG pH 7.198 L POC ABG pCO2 47.5 H POC ABG pO2 Sodium Potassium Chloride Carbon Dioxide BUN Creatinine Glucose POC Glucose 174 H 189 H Calcium Phosphorus Magnesium AST Alkaline Phosphatase C-Reactive Protein Total Protein Albumin Lipase Vitamin B12 TSH Urine WBC (Auto) Urine Chloride Urine Total Protein Crossmatch 10/14/16 10/14/16 10/14/16 12:02 12:02 13:11 WBC 13.4 H RBC 3.60 L Hgb Hct MCV 98 H D RDW 13.1 L Plt Count Lymph % (Auto) [place] % (Auto) [place] # Seg Neutrophils % Seg Neuts % (Manual) Lymphocytes % (Manual) Monocytes % (Manual) Nucleated RBC % Seg Neutrophils # Seg Neutrophils # Man Lymphocytes # (Manual) Monocytes # (Manual) Eosinophils # (Manual) Basophils # (Manual) PT INR APTT Heparin Anti-Xa Level POC ABG pH POC ABG pCO2 POC ABG pO2 Sodium Potassium Chloride 110.7 H Carbon Dioxide 19 L BUN 38 H Creatinine 1.4 H Glucose 182 H POC Glucose 173 H Calcium 7.5 L Phosphorus Magnesium AST Alkaline Phosphatase C-Reactive Protein Total Protein Albumin Lipase Vitamin B12 TSH Urine WBC (Auto) Urine Chloride Urine Total Protein Crossmatch 10/14/16 10/14/16 10/14/16 14:24 15:31 16:36 WBC RBC Hgb Hct MCV RDW Plt Count Lymph % (Auto) [place] % (Auto) [place] # Seg Neutrophils % Seg Neuts % (Manual) Lymphocytes % (Manual) Monocytes % (Manual) Nucleated RBC % Seg Neutrophils # Seg Neutrophils # Man Lymphocytes # (Manual) Monocytes # (Manual) Eosinophils # (Manual) Basophils # (Manual) PT INR APTT Heparin Anti-Xa Level POC ABG pH POC ABG pCO2 POC ABG pO2 Sodium Potassium Chloride Carbon Dioxide BUN Creatinine Glucose POC Glucose 123 H 124 H 156 H Calcium Phosphorus Magnesium AST Alkaline Phosphatase C-Reactive Protein Total Protein Albumin Lipase Vitamin B12 TSH Urine WBC (Auto) Urine Chloride Urine Total Protein Crossmatch 10/14/16 10/14/16 10/14/16 17:43 19:00 20:08 WBC RBC Hgb Hct MCV RDW Plt Count Lymph % (Auto) [place] % (Auto) [place] # Seg Neutrophils % Seg Neuts % (Manual) Lymphocytes % (Manual) Monocytes % (Manual) Nucleated RBC % Seg Neutrophils # Seg Neutrophils # Man Lymphocytes # (Manual) Monocytes # (Manual) Eosinophils # (Manual) Basophils # (Manual) PT INR APTT Heparin Anti-Xa Level POC ABG pH POC ABG pCO2 POC ABG pO2 Sodium Potassium Chloride Carbon Dioxide BUN Creatinine Glucose POC Glucose 154 H 123 H 138 H Calcium Phosphorus Magnesium AST Alkaline Phosphatase C-Reactive Protein Total Protein Albumin Lipase Vitamin B12 TSH Urine WBC (Auto) Urine Chloride Urine Total Protein Crossmatch 10/14/16 10/14/16 10/14/16 21:17 22:25 23:37 WBC RBC Hgb Hct MCV RDW Plt Count Lymph % (Auto) [place] % (Auto) [place] # Seg Neutrophils % Seg Neuts % (Manual) Lymphocytes % (Manual) Monocytes % (Manual) Nucleated RBC % Seg Neutrophils # Seg Neutrophils # Man Lymphocytes # (Manual) Monocytes # (Manual) Eosinophils # (Manual) Basophils # (Manual) PT INR APTT Heparin Anti-Xa Level POC ABG pH POC ABG pCO2 POC ABG pO2 Sodium Potassium Chloride Carbon Dioxide BUN Creatinine Glucose POC Glucose 148 H 132 H 137 H Calcium Phosphorus Magnesium AST Alkaline Phosphatase C-Reactive Protein Total Protein Albumin Lipase Vitamin B12 TSH Urine WBC (Auto) Urine Chloride Urine Total Protein Crossmatch 10/15/16 10/15/16 10/15/16 00:49 01:53 03:06 WBC RBC Hgb Hct MCV RDW Plt Count Lymph % (Auto) [place] % (Auto) [place] # Seg Neutrophils % Seg Neuts % (Manual) Lymphocytes % (Manual) Monocytes % (Manual) Nucleated RBC % Seg Neutrophils # Seg Neutrophils # Man Lymphocytes # (Manual) Monocytes # (Manual) Eosinophils # (Manual) Basophils # (Manual) PT INR APTT Heparin Anti-Xa Level POC ABG pH POC ABG pCO2 POC ABG pO2 Sodium Potassium Chloride Carbon Dioxide BUN Creatinine Glucose POC Glucose 132 H 134 H 134 H Calcium Phosphorus Magnesium AST Alkaline Phosphatase C-Reactive Protein Total Protein Albumin Lipase Vitamin B12 TSH Urine WBC (Auto) Urine Chloride Urine Total Protein Crossmatch 10/15/16 10/15/16 10/15/16 04:40 04:46 06:21 WBC RBC Hgb Hct MCV RDW Plt Count Lymph % (Auto) [place] % (Auto) [place] # Seg Neutrophils % Seg Neuts % (Manual) Lymphocytes % (Manual) Monocytes % (Manual) Nucleated RBC % Seg Neutrophils # Seg Neutrophils # Man Lymphocytes # (Manual) Monocytes # (Manual) Eosinophils # (Manual) Basophils # (Manual) PT INR APTT Heparin Anti-Xa Level POC ABG pH POC ABG pCO2 30.7 L POC ABG pO2 108 H Sodium Potassium Chloride 109.0 H Carbon Dioxide 17 L BUN 27 H Creatinine Glucose 124 H POC Glucose 160 H Calcium 7.5 L Phosphorus Magnesium AST 79 H Alkaline Phosphatase C-Reactive Protein Total Protein 5.5 L Albumin 3.0 L Lipase Vitamin B12 TSH Urine WBC (Auto) Urine Chloride Urine Total Protein Crossmatch 10/15/16 10/15/16 10/15/16 07:12 08:01 09:03 WBC RBC Hgb Hct MCV RDW Plt Count Lymph % (Auto) [place] % (Auto) [place] # Seg Neutrophils % Seg Neuts % (Manual) Lymphocytes % (Manual) Monocytes % (Manual) Nucleated RBC % Seg Neutrophils # Seg Neutrophils # Man Lymphocytes # (Manual) Monocytes # (Manual) Eosinophils # (Manual) Basophils # (Manual) PT INR APTT Heparin Anti-Xa Level POC ABG pH POC ABG pCO2 POC ABG pO2 Sodium Potassium Chloride Carbon Dioxide BUN Creatinine Glucose POC Glucose 179 H 187 H 165 H Calcium Phosphorus Magnesium AST Alkaline Phosphatase C-Reactive Protein Total Protein Albumin Lipase Vitamin B12 TSH Urine WBC (Auto) Urine Chloride Urine Total Protein Crossmatch 10/15/16 10/15/16 10/15/16 10:06 10:06 10:07 WBC 12.1 H RBC 3.01 L Hgb 9.7 L Hct 29.6 L MCV 98 H RDW Plt Count 129 L Lymph % (Auto) [place] % (Auto) [place] # Seg Neutrophils % Seg Neuts % (Manual) Lymphocytes % (Manual) Monocytes % (Manual) Nucleated RBC % Seg Neutrophils # Seg Neutrophils # Man Lymphocytes # (Manual) Monocytes # (Manual) Eosinophils # (Manual) Basophils # (Manual) PT INR APTT Heparin Anti-Xa Level POC ABG pH POC ABG pCO2 POC ABG pO2 Sodium Potassium 3.2 L D Chloride 109.6 H Carbon Dioxide 18 L BUN 22 H Creatinine Glucose 127 H POC Glucose 147 H Calcium 7.0 L Phosphorus Magnesium AST Alkaline Phosphatase C-Reactive Protein Total Protein Albumin Lipase Vitamin B12 TSH Urine WBC (Auto) Urine Chloride Urine Total Protein Crossmatch 10/15/16 10/15/16 10/15/16 11:05 11:06 11:57 WBC RBC Hgb Hct MCV RDW Plt Count Lymph % (Auto) [place] % (Auto) [place] # Seg Neutrophils % Seg Neuts % (Manual) Lymphocytes % (Manual) Monocytes % (Manual) Nucleated RBC % Seg Neutrophils # Seg Neutrophils # Man Lymphocytes # (Manual) Monocytes # (Manual) Eosinophils # (Manual) Basophils # (Manual) PT INR APTT Heparin Anti-Xa Level POC ABG pH 7.305 L POC ABG pCO2 POC ABG pO2 Sodium Potassium Chloride Carbon Dioxide BUN Creatinine Glucose POC Glucose 145 H Calcium Phosphorus Magnesium AST Alkaline Phosphatase C-Reactive Protein Total Protein Albumin Lipase Vitamin B12 TSH Urine WBC (Auto) 7.0 H Urine Chloride Urine Total Protein Crossmatch 10/15/16 10/15/16 10/15/16 12:04 13:59 15:24 WBC RBC Hgb Hct MCV RDW Plt Count Lymph % (Auto) [place] % (Auto) [place] # Seg Neutrophils % Seg Neuts % (Manual) Lymphocytes % (Manual) Monocytes % (Manual) Nucleated RBC % Seg Neutrophils # Seg Neutrophils # Man Lymphocytes # (Manual) Monocytes # (Manual) Eosinophils # (Manual) Basophils # (Manual) PT INR APTT Heparin Anti-Xa Level POC ABG pH POC ABG pCO2 POC ABG pO2 Sodium Potassium Chloride Carbon Dioxide BUN Creatinine Glucose POC Glucose 123 H 147 H 153 H Calcium Phosphorus Magnesium AST Alkaline Phosphatase C-Reactive Protein Total Protein Albumin Lipase Vitamin B12 TSH Urine WBC (Auto) Urine Chloride Urine Total Protein Crossmatch 10/15/16 10/15/16 10/15/16 16:30 17:34 18:30 WBC RBC Hgb Hct MCV RDW Plt Count Lymph % (Auto) [place] % (Auto) [place] # Seg Neutrophils % Seg Neuts % (Manual) Lymphocytes % (Manual) Monocytes % (Manual) Nucleated RBC % Seg Neutrophils # Seg Neutrophils # Man Lymphocytes # (Manual) Monocytes # (Manual) Eosinophils # (Manual) Basophils # (Manual) PT INR APTT Heparin Anti-Xa Level POC ABG pH POC ABG pCO2 POC ABG pO2 Sodium Potassium Chloride Carbon Dioxide BUN Creatinine Glucose POC Glucose 223 H 236 H 164 H Calcium Phosphorus Magnesium AST Alkaline Phosphatase C-Reactive Protein Total Protein Albumin Lipase Vitamin B12 TSH Urine WBC (Auto) Urine Chloride Urine Total Protein Crossmatch 10/15/16 10/15/16 10/15/16 19:14 20:31 21:23 WBC RBC Hgb Hct MCV RDW Plt Count Lymph % (Auto) [place] % (Auto) [place] # Seg Neutrophils % Seg Neuts % (Manual) Lymphocytes % (Manual) Monocytes % (Manual) Nucleated RBC % Seg Neutrophils # Seg Neutrophils # Man Lymphocytes # (Manual) Monocytes # (Manual) Eosinophils # (Manual) Basophils # (Manual) PT INR APTT Heparin Anti-Xa Level POC ABG pH POC ABG pCO2 POC ABG pO2 Sodium Potassium Chloride Carbon Dioxide BUN Creatinine Glucose POC Glucose 138 H 158 H 158 H Calcium Phosphorus Magnesium AST Alkaline Phosphatase C-Reactive Protein Total Protein Albumin Lipase Vitamin B12 TSH Urine WBC (Auto) Urine Chloride Urine Total Protein Crossmatch 10/15/16 10/15/16 10/16/16 22:04 22:57 00:11 WBC RBC Hgb Hct MCV RDW Plt Count Lymph % (Auto) [place] % (Auto) [place] # Seg Neutrophils % Seg Neuts % (Manual) Lymphocytes % (Manual) Monocytes % (Manual) Nucleated RBC % Seg Neutrophils # Seg Neutrophils # Man Lymphocytes # (Manual) Monocytes # (Manual) Eosinophils # (Manual) Basophils # (Manual) PT INR APTT Heparin Anti-Xa Level POC ABG pH POC ABG pCO2 POC ABG pO2 Sodium Potassium Chloride Carbon Dioxide BUN Creatinine Glucose POC Glucose 168 H 213 H 166 H Calcium Phosphorus Magnesium AST Alkaline Phosphatase C-Reactive Protein Total Protein Albumin Lipase Vitamin B12 TSH Urine WBC (Auto) Urine Chloride Urine Total Protein Crossmatch 10/16/16 10/16/16 10/16/16 01:16 02:32 03:38 WBC RBC Hgb Hct MCV RDW Plt Count Lymph % (Auto) [place] % (Auto) [place] # Seg Neutrophils % Seg Neuts % (Manual) Lymphocytes % (Manual) Monocytes % (Manual) Nucleated RBC % Seg Neutrophils # Seg Neutrophils # Man Lymphocytes # (Manual) Monocytes # (Manual) Eosinophils # (Manual) Basophils # (Manual) PT INR APTT Heparin Anti-Xa Level POC ABG pH POC ABG pCO2 POC ABG pO2 Sodium Potassium Chloride Carbon Dioxide BUN Creatinine Glucose POC Glucose 171 H 164 H 147 H Calcium Phosphorus Magnesium AST Alkaline Phosphatase C-Reactive Protein Total Protein Albumin Lipase Vitamin B12 TSH Urine WBC (Auto) Urine Chloride Urine Total Protein Crossmatch 10/16/16 10/16/16 10/16/16 04:14 04:14 04:49 WBC RBC Hgb Hct MCV RDW Plt Count Lymph % (Auto) [place] % (Auto) [place] # Seg Neutrophils % Seg Neuts % (Manual) Lymphocytes % (Manual) Monocytes % (Manual) Nucleated RBC % Seg Neutrophils # Seg Neutrophils # Man Lymphocytes # (Manual) Monocytes # (Manual) Eosinophils # (Manual) Basophils # (Manual) PT INR APTT Heparin Anti-Xa Level POC ABG pH POC ABG pCO2 POC ABG pO2 Sodium 147 H Potassium Chloride 110.9 H Carbon Dioxide 19 L BUN Creatinine Glucose 139 H POC Glucose 144 H Calcium 7.3 L Phosphorus 2.3 L Magnesium AST Alkaline Phosphatase C-Reactive Protein Total Protein Albumin Lipase 143 H Vitamin B12 TSH Urine WBC (Auto) Urine Chloride Urine Total Protein Crossmatch 10/16/16 10/16/16 10/16/16 05:03 05:41 05:58 WBC 16.5 H RBC 3.36 L Hgb Hct MCV 98 H RDW 13.1 L Plt Count Lymph % (Auto) 8.5 L [place] % (Auto) 7.6 H [place] # 1.3 H Seg Neutrophils % 83.3 H Seg Neuts % (Manual) Lymphocytes % (Manual) Monocytes % (Manual) Nucleated RBC % Seg Neutrophils # 13.8 H Seg Neutrophils # Man Lymphocytes # (Manual) Monocytes # (Manual) Eosinophils # (Manual) Basophils # (Manual) PT INR APTT Heparin Anti-Xa Level POC ABG pH POC ABG pCO2 30.7 L POC ABG pO2 128 H Sodium Potassium Chloride Carbon Dioxide BUN Creatinine Glucose POC Glucose 131 H Calcium Phosphorus Magnesium AST Alkaline Phosphatase C-Reactive Protein Total Protein Albumin Lipase Vitamin B12 TSH Urine WBC (Auto) Urine Chloride Urine Total Protein Crossmatch 10/16/16 10/16/16 10/16/16 06:32 09:27 09:35 WBC RBC Hgb Hct MCV RDW Plt Count Lymph % (Auto) [place] % (Auto) [place] # Seg Neutrophils % Seg Neuts % (Manual) Lymphocytes % (Manual) Monocytes % (Manual) Nucleated RBC % Seg Neutrophils # Seg Neutrophils # Man Lymphocytes # (Manual) Monocytes # (Manual) Eosinophils # (Manual) Basophils # (Manual) PT INR APTT Heparin Anti-Xa Level POC ABG pH POC ABG pCO2 32.8 L POC ABG pO2 137 H Sodium Potassium Chloride Carbon Dioxide BUN Creatinine Glucose POC Glucose 121 H 150 H Calcium Phosphorus Magnesium AST Alkaline Phosphatase C-Reactive Protein Total Protein Albumin Lipase Vitamin B12 TSH Urine WBC (Auto) Urine Chloride Urine Total Protein Crossmatch 10/16/16 10/16/16 10/16/16 10:47 13:27 14:24 WBC RBC Hgb Hct MCV RDW Plt Count Lymph % (Auto) [place] % (Auto) [place] # Seg Neutrophils % Seg Neuts % (Manual) Lymphocytes % (Manual) Monocytes % (Manual) Nucleated RBC % Seg Neutrophils # Seg Neutrophils # Man Lymphocytes # (Manual) Monocytes # (Manual) Eosinophils # (Manual) Basophils # (Manual) PT INR APTT Heparin Anti-Xa Level POC ABG pH POC ABG pCO2 POC ABG pO2 Sodium Potassium Chloride Carbon Dioxide BUN Creatinine Glucose POC Glucose 184 H 171 H 174 H Calcium Phosphorus Magnesium AST Alkaline Phosphatase C-Reactive Protein Total Protein Albumin Lipase Vitamin B12 TSH Urine WBC (Auto) Urine Chloride Urine Total Protein Crossmatch 10/16/16 10/16/16 10/16/16 15:48 16:26 18:17 WBC RBC Hgb Hct MCV RDW Plt Count Lymph % (Auto) [place] % (Auto) [place] # Seg Neutrophils % Seg Neuts % (Manual) Lymphocytes % (Manual) Monocytes % (Manual) Nucleated RBC % Seg Neutrophils # Seg Neutrophils # Man Lymphocytes # (Manual) Monocytes # (Manual) Eosinophils # (Manual) Basophils # (Manual) PT INR APTT Heparin Anti-Xa Level POC ABG pH POC ABG pCO2 POC ABG pO2 Sodium Potassium Chloride Carbon Dioxide BUN Creatinine Glucose POC Glucose 205 H 204 H 234 H Calcium Phosphorus Magnesium AST Alkaline Phosphatase C-Reactive Protein Total Protein Albumin Lipase Vitamin B12 TSH Urine WBC (Auto) Urine Chloride Urine Total Protein Crossmatch 10/16/16 10/16/16 10/16/16 19:40 20:33 21:36 WBC RBC Hgb Hct MCV RDW Plt Count Lymph % (Auto) [place] % (Auto) [place] # Seg Neutrophils % Seg Neuts % (Manual) Lymphocytes % (Manual) Monocytes % (Manual) Nucleated RBC % Seg Neutrophils # Seg Neutrophils # Man Lymphocytes # (Manual) Monocytes # (Manual) Eosinophils # (Manual) Basophils # (Manual) PT INR APTT Heparin Anti-Xa Level POC ABG pH POC ABG pCO2 POC ABG pO2 Sodium Potassium Chloride Carbon Dioxide BUN Creatinine Glucose POC Glucose 167 H 153 H 158 H Calcium Phosphorus Magnesium AST Alkaline Phosphatase C-Reactive Protein Total Protein Albumin Lipase Vitamin B12 TSH Urine WBC (Auto) Urine Chloride Urine Total Protein Crossmatch 10/16/16 10/16/16 10/17/16 22:54 23:48 00:47 WBC RBC Hgb Hct MCV RDW Plt Count Lymph % (Auto) [place] % (Auto) [place] # Seg Neutrophils % Seg Neuts % (Manual) Lymphocytes % (Manual) Monocytes % (Manual) Nucleated RBC % Seg Neutrophils # Seg Neutrophils # Man Lymphocytes # (Manual) Monocytes # (Manual) Eosinophils # (Manual) Basophils # (Manual) PT INR APTT Heparin Anti-Xa Level POC ABG pH POC ABG pCO2 POC ABG pO2 Sodium Potassium Chloride Carbon Dioxide BUN Creatinine Glucose POC Glucose 180 H 207 H 196 H Calcium Phosphorus Magnesium AST Alkaline Phosphatase C-Reactive Protein Total Protein Albumin Lipase Vitamin B12 TSH Urine WBC (Auto) Urine Chloride Urine Total Protein Crossmatch 10/17/16 10/17/16 10/17/16 01:57 02:49 03:50 WBC RBC Hgb Hct MCV RDW Plt Count Lymph % (Auto) [place] % (Auto) [place] # Seg Neutrophils % Seg Neuts % (Manual) Lymphocytes % (Manual) Monocytes % (Manual) Nucleated RBC % Seg Neutrophils # Seg Neutrophils # Man Lymphocytes # (Manual) Monocytes # (Manual) Eosinophils # (Manual) Basophils # (Manual) PT INR APTT Heparin Anti-Xa Level POC ABG pH POC ABG pCO2 POC ABG pO2 Sodium Potassium Chloride Carbon Dioxide BUN Creatinine Glucose POC Glucose 180 H 151 H 106 H Calcium Phosphorus Magnesium AST Alkaline Phosphatase C-Reactive Protein Total Protein Albumin Lipase Vitamin B12 TSH Urine WBC (Auto) Urine Chloride Urine Total Protein Crossmatch 10/17/16 10/17/16 10/17/16 04:59 06:03 06:35 WBC RBC Hgb Hct MCV RDW Plt Count Lymph % (Auto) [place] % (Auto) [place] # Seg Neutrophils % Seg Neuts % (Manual) Lymphocytes % (Manual) Monocytes % (Manual) Nucleated RBC % Seg Neutrophils # Seg Neutrophils # Man Lymphocytes # (Manual) Monocytes # (Manual) Eosinophils # (Manual) Basophils # (Manual) PT INR APTT Heparin Anti-Xa Level POC ABG pH 7.453 H POC ABG pCO2 30.1 L POC ABG pO2 111 H Sodium Potassium Chloride Carbon Dioxide BUN Creatinine Glucose POC Glucose 145 H 157 H Calcium Phosphorus Magnesium AST Alkaline Phosphatase C-Reactive Protein Total Protein Albumin Lipase Vitamin B12 TSH Urine WBC (Auto) Urine Chloride Urine Total Protein Crossmatch 10/17/16 10/17/16 10/17/16 07:08 07:11 08:01 WBC RBC Hgb Hct MCV RDW Plt Count Lymph % (Auto) [place] % (Auto) [place] # Seg Neutrophils % Seg Neuts % (Manual) Lymphocytes % (Manual) Monocytes % (Manual) Nucleated RBC % Seg Neutrophils # Seg Neutrophils # Man Lymphocytes # (Manual) Monocytes # (Manual) Eosinophils # (Manual) Basophils # (Manual) PT INR APTT Heparin Anti-Xa Level POC ABG pH POC ABG pCO2 POC ABG pO2 Sodium 147 H Potassium Chloride 113.8 H Carbon Dioxide 19 L BUN Creatinine Glucose 136 H POC Glucose 136 H 152 H Calcium 7.7 L Phosphorus Magnesium AST Alkaline Phosphatase C-Reactive Protein Total Protein Albumin Lipase Vitamin B12 TSH Urine WBC (Auto) Urine Chloride Urine Total Protein Crossmatch 10/17/16 10/17/16 10/17/16 08:23 09:17 09:53 WBC 18.1 H RBC 3.01 L Hgb 9.7 L Hct 29.4 L MCV 98 H RDW Plt Count 116 L Lymph % (Auto) [place] % (Auto) [place] # Seg Neutrophils % Seg Neuts % (Manual) 77.0 H Lymphocytes % (Manual) 4.0 L Monocytes % (Manual) 12.0 H Nucleated RBC % Seg Neutrophils # Seg Neutrophils # Man 13.9 H Lymphocytes # (Manual) 0.7 L Monocytes # (Manual) 2.2 H Eosinophils # (Manual) Basophils # (Manual) PT INR APTT Heparin Anti-Xa Level POC ABG pH POC ABG pCO2 POC ABG pO2 Sodium Potassium Chloride Carbon Dioxide BUN Creatinine Glucose POC Glucose 148 H 137 H Calcium Phosphorus Magnesium AST Alkaline Phosphatase C-Reactive Protein Total Protein Albumin Lipase Vitamin B12 TSH Urine WBC (Auto) Urine Chloride Urine Total Protein Crossmatch 10/17/16 10/17/16 10/17/16 11:43 16:07 17:42 WBC RBC Hgb Hct MCV RDW Plt Count Lymph % (Auto) [place] % (Auto) [place] # Seg Neutrophils % Seg Neuts % (Manual) Lymphocytes % (Manual) Monocytes % (Manual) Nucleated RBC % Seg Neutrophils # Seg Neutrophils # Man Lymphocytes # (Manual) Monocytes # (Manual) Eosinophils # (Manual) Basophils # (Manual) PT 16.4 H INR 1.33 H APTT 38.8 H Heparin Anti-Xa Level POC ABG pH POC ABG pCO2 POC ABG pO2 Sodium Potassium Chloride Carbon Dioxide BUN Creatinine Glucose POC Glucose 179 H 153 H Calcium Phosphorus Magnesium AST Alkaline Phosphatase C-Reactive Protein Total Protein Albumin Lipase Vitamin B12 TSH Urine WBC (Auto) Urine Chloride Urine Total Protein Crossmatch 10/17/16 10/18/16 10/18/16 22:54 04:37 05:39 WBC RBC Hgb Hct MCV RDW Plt Count Lymph % (Auto) [place] % (Auto) [place] # Seg Neutrophils % Seg Neuts % (Manual) Lymphocytes % (Manual) Monocytes % (Manual) Nucleated RBC % Seg Neutrophils # Seg Neutrophils # Man Lymphocytes # (Manual) Monocytes # (Manual) Eosinophils # (Manual) Basophils # (Manual) PT INR APTT Heparin Anti-Xa Level 0.27 L POC ABG pH 7.454 H POC ABG pCO2 30.8 L POC ABG pO2 115 H Sodium Potassium Chloride Carbon Dioxide BUN Creatinine Glucose POC Glucose 69 L Calcium Phosphorus Magnesium AST Alkaline Phosphatase C-Reactive Protein Total Protein Albumin Lipase Vitamin B12 TSH Urine WBC (Auto) Urine Chloride Urine Total Protein Crossmatch 03/02/17 03/02/17 03/02/17 06:46 06:46 06:46 WBC 20.5 H RBC 2.62 L Hgb 8.4 L Hct 26.0 L MCV 100 H RDW Plt Count Lymph % (Auto) [place] % (Auto) [place] # Seg Neutrophils % Seg Neuts % (Manual) 75.0 H Lymphocytes % (Manual) 9.0 L Monocytes % (Manual) 14.0 H Nucleated RBC % Seg Neutrophils # Seg Neutrophils # Man 15.4 H Lymphocytes # (Manual) Monocytes # (Manual) 2.9 H Eosinophils # (Manual) Basophils # (Manual) PT INR APTT Heparin Anti-Xa Level POC ABG pH POC ABG pCO2 POC ABG pO2 Sodium Potassium Chloride 110.6 H Carbon Dioxide BUN Creatinine 1.3 H Glucose 153 H POC Glucose Calcium 8.0 L Phosphorus Magnesium 1.6 L AST Alkaline Phosphatase C-Reactive Protein Total Protein Albumin Lipase Vitamin B12 TSH Urine WBC (Auto) Urine Chloride Urine Total Protein Crossmatch 10/18/16 10/18/16 10/18/16 07:30 11:37 17:51 WBC RBC Hgb Hct MCV RDW Plt Count Lymph % (Auto) [place] % (Auto) [place] # Seg Neutrophils % Seg Neuts % (Manual) Lymphocytes % (Manual) Monocytes % (Manual) Nucleated RBC % Seg Neutrophils # Seg Neutrophils # Man Lymphocytes # (Manual) Monocytes # (Manual) Eosinophils # (Manual) Basophils # (Manual) PT INR APTT Heparin Anti-Xa Level POC ABG pH POC ABG pCO2 POC ABG pO2 Sodium Potassium Chloride Carbon Dioxide BUN Creatinine Glucose POC Glucose 162 H 156 H 164 H Calcium Phosphorus Magnesium AST Alkaline Phosphatase C-Reactive Protein Total Protein Albumin Lipase Vitamin B12 TSH Urine WBC (Auto) Urine Chloride Urine Total Protein Crossmatch 10/18/16 10/19/16 10/19/16 23:44 03:59 05:13 WBC 18.2 H RBC 2.76 L Hgb 9.0 L Hct 27.7 L MCV 100 H RDW Plt Count Lymph % (Auto) [place] % (Auto) [place] # Seg Neutrophils % Seg Neuts % (Manual) 76.0 H Lymphocytes % (Manual) 10.0 L Monocytes % (Manual) Nucleated RBC % Seg Neutrophils # Seg Neutrophils # Man 13.8 H Lymphocytes # (Manual) Monocytes # (Manual) Eosinophils # (Manual) Basophils # (Manual) PT INR APTT Heparin Anti-Xa Level POC ABG pH POC ABG pCO2 32.2 L POC ABG pO2 128 H Sodium Potassium Chloride Carbon Dioxide BUN Creatinine Glucose POC Glucose 278 H Calcium Phosphorus Magnesium AST Alkaline Phosphatase C-Reactive Protein Total Protein Albumin Lipase Vitamin B12 TSH Urine WBC (Auto) Urine Chloride Urine Total Protein Crossmatch 10/19/16 10/19/16 10/19/16 06:01 06:30 12:20 WBC RBC Hgb Hct MCV RDW Plt Count Lymph % (Auto) [place] % (Auto) [place] # Seg Neutrophils % Seg Neuts % (Manual) Lymphocytes % (Manual) Monocytes % (Manual) Nucleated RBC % Seg Neutrophils # Seg Neutrophils # Man Lymphocytes # (Manual) Monocytes # (Manual) Eosinophils # (Manual) Basophils # (Manual) PT INR APTT Heparin Anti-Xa Level POC ABG pH POC ABG pCO2 POC ABG pO2 Sodium Potassium Chloride Carbon Dioxide 18 L BUN Creatinine 1.3 H Glucose 262 H POC Glucose 261 H 349 H Calcium 7.7 L Phosphorus 4.8 H D Magnesium AST Alkaline Phosphatase C-Reactive Protein Total Protein Albumin Lipase Vitamin B12 TSH Urine WBC (Auto) Urine Chloride Urine Total Protein Crossmatch 10/19/16 10/20/16 10/20/16 16:48 00:17 05:20 WBC 22.5 H RBC 2.80 L Hgb 8.9 L Hct 28.3 L MCV 101 H RDW Plt Count Lymph % (Auto) [place] % (Auto) [place] # Seg Neutrophils % Seg Neuts % (Manual) Lymphocytes % (Manual) 10.0 L Monocytes % (Manual) Nucleated RBC % Seg Neutrophils # Seg Neutrophils # Man 13.3 H Lymphocytes # (Manual) Monocytes # (Manual) 1.1 H Eosinophils # (Manual) 0.7 H Basophils # (Manual) PT INR APTT Heparin Anti-Xa Level POC ABG pH POC ABG pCO2 POC ABG pO2 Sodium Potassium Chloride Carbon Dioxide BUN Creatinine Glucose POC Glucose 248 H 346 H Calcium Phosphorus Magnesium AST Alkaline Phosphatase C-Reactive Protein Total Protein Albumin Lipase Vitamin B12 TSH Urine WBC (Auto) Urine Chloride Urine Total Protein Crossmatch 10/20/16 10/20/16 10/20/16 05:20 05:20 06:05 WBC RBC Hgb Hct MCV RDW Plt Count Lymph % (Auto) [place] % (Auto) [place] # Seg Neutrophils % Seg Neuts % (Manual) Lymphocytes % (Manual) Monocytes % (Manual) Nucleated RBC % Seg Neutrophils # Seg Neutrophils # Man Lymphocytes # (Manual) Monocytes # (Manual) Eosinophils # (Manual) Basophils # (Manual) PT INR APTT Heparin Anti-Xa Level 0.20 L POC ABG pH POC ABG pCO2 POC ABG pO2 Sodium Potassium Chloride Carbon Dioxide BUN 20 H Creatinine Glucose 374 H POC Glucose 337 H Calcium 8.3 L Phosphorus Magnesium AST Alkaline Phosphatase C-Reactive Protein Total Protein Albumin Lipase Vitamin B12 TSH Urine WBC (Auto) Urine Chloride Urine Total Protein Crossmatch 10/20/16 10/20/16 10/20/16 11:49 13:59 17:56 WBC RBC Hgb Hct MCV RDW Plt Count Lymph % (Auto) [place] % (Auto) [place] # Seg Neutrophils % Seg Neuts % (Manual) Lymphocytes % (Manual) Monocytes % (Manual) Nucleated RBC % Seg Neutrophils # Seg Neutrophils # Man Lymphocytes # (Manual) Monocytes # (Manual) Eosinophils # (Manual) Basophils # (Manual) PT INR APTT Heparin Anti-Xa Level 2.00 H POC ABG pH POC ABG pCO2 POC ABG pO2 Sodium Potassium Chloride Carbon Dioxide BUN Creatinine Glucose POC Glucose 305 H 362 H Calcium Phosphorus Magnesium AST Alkaline Phosphatase C-Reactive Protein Total Protein Albumin Lipase Vitamin B12 TSH Urine WBC (Auto) Urine Chloride Urine Total Protein Crossmatch 10/20/16 10/21/16 10/21/16 23:52 05:00 05:49 WBC 22.9 H RBC 2.49 L Hgb 7.7 L Hct 25.6 L MCV 103 H RDW Plt Count Lymph % (Auto) [place] % (Auto) [place] # Seg Neutrophils % Seg Neuts % (Manual) 94.0 H Lymphocytes % (Manual) 1.0 L Monocytes % (Manual) Nucleated RBC % Seg Neutrophils # Seg Neutrophils # Man 21.5 H Lymphocytes # (Manual) 0.2 L Monocytes # (Manual) 1.1 H Eosinophils # (Manual) Basophils # (Manual) PT INR APTT Heparin Anti-Xa Level POC ABG pH POC ABG pCO2 POC ABG pO2 Sodium Potassium Chloride Carbon Dioxide BUN Creatinine Glucose POC Glucose 252 H 180 H Calcium Phosphorus Magnesium AST Alkaline Phosphatase C-Reactive Protein Total Protein Albumin Lipase Vitamin B12 TSH Urine WBC (Auto) Urine Chloride Urine Total Protein Crossmatch 10/21/16 10/21/16 10/21/16 11:47 11:49 14:10 WBC RBC Hgb Hct MCV RDW Plt Count Lymph % (Auto) [place] % (Auto) [place] # Seg Neutrophils % Seg Neuts % (Manual) Lymphocytes % (Manual) Monocytes % (Manual) Nucleated RBC % Seg Neutrophils # Seg Neutrophils # Man Lymphocytes # (Manual) Monocytes # (Manual) Eosinophils # (Manual) Basophils # (Manual) PT INR APTT Heparin Anti-Xa Level POC ABG pH POC ABG pCO2 POC ABG pO2 Sodium Potassium Chloride Carbon Dioxide BUN Creatinine Glucose POC Glucose 50 L 56 L 140 H Calcium Phosphorus Magnesium AST Alkaline Phosphatase C-Reactive Protein Total Protein Albumin Lipase Vitamin B12 TSH Urine WBC (Auto) Urine Chloride Urine Total Protein Crossmatch 10/21/16 10/21/16 10/22/16 18:24 Unknown 00:07 WBC RBC Hgb Hct MCV RDW Plt Count Lymph % (Auto) [place] % (Auto) [place] # Seg Neutrophils % Seg Neuts % (Manual) Lymphocytes % (Manual) Monocytes % (Manual) Nucleated RBC % Seg Neutrophils # Seg Neutrophils # Man Lymphocytes # (Manual) Monocytes # (Manual) Eosinophils # (Manual) Basophils # (Manual) PT INR APTT Heparin Anti-Xa Level POC ABG pH POC ABG pCO2 POC ABG pO2 Sodium 150 H Potassium 3.1 L [place]lor[place] 112.4 H Carbon Dioxide BUN 25 H Creatinine 1.4 H Glucose POC Glucose 175 H 218 H Calcium 8.0 L Phosphorus Magnesium AST Alkaline Phosphatase C-Reactive Protein Total Protein Albumin Lipase Vitamin B12 TSH Urine WBC (Auto) Urine Chloride Urine Total Protein Crossmatch 10/22/16 10/22/16 10/22/16 04:20 04:20 10:25 WBC 20.8 H RBC 2.37 L Hgb 7.5 L Hct 23.9 L MCV 101 H RDW Plt Count Lymph % (Auto) [place] % (Auto) [place] # Seg Neutrophils % Seg Neuts % (Manual) 89.0 H Lymphocytes % (Manual) 7.0 L Monocytes % (Manual) Nucleated RBC % Seg Neutrophils # Seg Neutrophils # Man 18.5 H Lymphocytes # (Manual) Monocytes # (Manual) Eosinophils # (Manual) Basophils # (Manual) 0.2 H PT INR APTT Heparin Anti-Xa Level POC ABG pH POC ABG pCO2 POC ABG pO2 Sodium 148 H Potassium 2.9 L* Chloride 109.4 H Carbon Dioxide BUN 26 H Creatinine Glucose 140 H POC Glucose Calcium 7.5 L Phosphorus Magnesium AST Alkaline Phosphatase C-Reactive Protein Total Protein Albumin Lipase Vitamin B12 976.8 H TSH Urine WBC (Auto) Urine Chloride Urine Total Protein Crossmatch 10/22/16 10/22/16 10/22/16 10:25 14:50 18:16 WBC RBC Hgb Hct MCV RDW Plt Count Lymph % (Auto) [place] % (Auto) [place] # Seg Neutrophils % Seg Neuts % (Manual) Lymphocytes % (Manual) Monocytes % (Manual) Nucleated RBC % Seg Neutrophils # Seg Neutrophils # Man Lymphocytes # (Manual) Monocytes # (Manual) Eosinophils # (Manual) Basophils # (Manual) PT INR APTT Heparin Anti-Xa Level POC ABG pH POC ABG pCO2 POC ABG pO2 Sodium Potassium Chloride Carbon Dioxide BUN Creatinine Glucose POC Glucose 193 H Calcium Phosphorus Magnesium AST Alkaline Phosphatase C-Reactive Protein Total Protein Albumin Lipase Vitamin B12 TSH 0.143 L 0.162 L Urine WBC (Auto) Urine Chloride Urine Total Protein Crossmatch 10/22/16 10/22/16 10/22/16 20:00 20:00 20:00 WBC 24.1 H RBC 2.58 L Hgb 8.2 L Hct 26.4 L MCV 102 H RDW Plt Count Lymph % (Auto) [place] % (Auto) [place] # Seg Neutrophils % Seg Neuts % (Manual) 74.0 H Lymphocytes % (Manual) 7.0 L Monocytes % (Manual) Nucleated RBC % Seg Neutrophils # Seg Neutrophils # Man 17.8 H Lymphocytes # (Manual) Monocytes # (Manual) Eosinophils # (Manual) Basophils # (Manual) PT INR APTT Heparin Anti-Xa Level 1.92 H POC ABG pH POC ABG pCO2 POC ABG pO2 Sodium Potassium Chloride Carbon Dioxide BUN Creatinine Glucose POC Glucose Calcium Phosphorus Magnesium AST Alkaline Phosphatase C-Reactive Protein Total Protein Albumin Lipase Vitamin B12 TSH Urine WBC (Auto) Urine Chloride Urine Total Protein Crossmatch See Detail 10/23/16 10/23/16 10/23/16 00:21 06:09 12:07 WBC RBC Hgb Hct MCV RDW Plt Count Lymph % (Auto) [place] % (Auto) [place] # Seg Neutrophils % Seg Neuts % (Manual) Lymphocytes % (Manual) Monocytes % (Manual) Nucleated RBC % Seg Neutrophils # Seg Neutrophils # Man Lymphocytes # (Manual) Monocytes # (Manual) Eosinophils # (Manual) Basophils # (Manual) PT INR APTT Heparin Anti-Xa Level POC ABG pH POC ABG pCO2 POC ABG pO2 Sodium Potassium Chloride Carbon Dioxide BUN Creatinine Glucose POC Glucose 283 H 241 H 340 H Calcium Phosphorus Magnesium AST Alkaline Phosphatase C-Reactive Protein Total Protein Albumin Lipase Vitamin B12 TSH Urine WBC (Auto) Urine Chloride Urine Total Protein Crossmatch 10/23/16 10/23/16 10/23/16 14:01 16:00 17:59 WBC RBC Hgb Hct MCV RDW Plt Count Lymph % (Auto) [place] % (Auto) [place] # Seg Neutrophils % Seg Neuts % (Manual) Lymphocytes % (Manual) Monocytes % (Manual) Nucleated RBC % Seg Neutrophils # Seg Neutrophils # Man Lymphocytes # (Manual) Monocytes # (Manual) Eosinophils # (Manual) Basophils # (Manual) PT INR APTT Heparin Anti-Xa Level 0.19 L POC ABG pH POC ABG pCO2 32.4 L POC ABG pO2 Sodium Potassium Chloride Carbon Dioxide BUN Creatinine Glucose POC Glucose 245 H Calcium Phosphorus Magnesium AST Alkaline Phosphatase C-Reactive Protein Total Protein Albumin Lipase Vitamin B12 TSH Urine WBC (Auto) Urine Chloride Urine Total Protein Crossmatch 10/23/16 10/23/16 10/23/16 22:55 Unknown Unknown WBC 22.6 H RBC 3.26 L Hgb Hct MCV RDW 17.1 H Plt Count Lymph % (Auto) [place] % (Auto) [place] # Seg Neutrophils % Seg Neuts % (Manual) Lymphocytes % (Manual) 11.0 L Monocytes % (Manual) Nucleated RBC % Seg Neutrophils # Seg Neutrophils # Man 14.0 H Lymphocytes # (Manual) Monocytes # (Manual) Eosinophils # (Manual) Basophils # (Manual) PT INR APTT Heparin Anti-Xa Level 0.17 L 0.15 L POC ABG pH POC ABG pCO2 POC ABG pO2 Sodium Potassium Chloride Carbon Dioxide BUN Creatinine Glucose POC Glucose Calcium Phosphorus Magnesium AST Alkaline Phosphatase C-Reactive Protein Total Protein Albumin Lipase Vitamin B12 TSH Urine WBC (Auto) Urine Chloride Urine Total Protein Crossmatch 10/23/16 10/24/16 10/24/16 Unknown 00:05 05:30 WBC RBC Hgb Hct MCV RDW Plt Count Lymph % (Auto) [place] % (Auto) [place] # Seg Neutrophils % Seg Neuts % (Manual) Lymphocytes % (Manual) Monocytes % (Manual) Nucleated RBC % Seg Neutrophils # Seg Neutrophils # Man Lymphocytes # (Manual) Monocytes # (Manual) Eosinophils # (Manual) Basophils # (Manual) PT INR APTT Heparin Anti-Xa Level 0.13 L POC ABG pH POC ABG pCO2 POC ABG pO2 Sodium Potassium Chloride 111.2 H Carbon Dioxide 20 L BUN 25 H Creatinine Glucose 227 H POC Glucose 118 H Calcium 7.1 L Phosphorus Magnesium AST Alkaline Phosphatase C-Reactive Protein Total Protein Albumin Lipase Vitamin B12 TSH Urine WBC (Auto) Urine Chloride Urine Total Protein Crossmatch 10/24/16 10/24/16 10/24/16 11:00 11:00 12:06 WBC 17.6 H RBC 2.92 L Hgb 9.2 L Hct 28.3 L MCV RDW 16.9 H Plt Count Lymph % (Auto) [place] % (Auto) [place] # Seg Neutrophils % Seg Neuts % (Manual) Lymphocytes % (Manual) Monocytes % (Manual) Nucleated RBC % Seg Neutrophils # Seg Neutrophils # Man Lymphocytes # (Manual) Monocytes # (Manual) Eosinophils # (Manual) Basophils # (Manual) PT INR APTT Heparin Anti-Xa Level 0.27 L POC ABG pH POC ABG pCO2 POC ABG pO2 Sodium Potassium Chloride Carbon Dioxide BUN Creatinine Glucose POC Glucose 166 H Calcium Phosphorus Magnesium AST Alkaline Phosphatase C-Reactive Protein Total Protein Albumin Lipase Vitamin B12 TSH Urine WBC (Auto) Urine Chloride Urine Total Protein Crossmatch 10/24/16 10/25/16 10/25/16 12:27 00:49 03:30 WBC RBC Hgb 8.8 L Hct 28.1 L MCV RDW Plt Count Lymph % (Auto) [place] % (Auto) [place] # Seg Neutrophils % Seg Neuts % (Manual) Lymphocytes % (Manual) Monocytes % (Manual) Nucleated RBC % Seg Neutrophils # Seg Neutrophils # Man Lymphocytes # (Manual) Monocytes # (Manual) Eosinophils # (Manual) Basophils # (Manual) PT INR APTT Heparin Anti-Xa Level POC ABG pH POC ABG pCO2 33.9 L POC ABG pO2 Sodium Potassium Chloride Carbon Dioxide BUN Creatinine Glucose POC Glucose 121 H Calcium Phosphorus Magnesium AST Alkaline Phosphatase C-Reactive Protein Total Protein Albumin Lipase Vitamin B12 TSH Urine WBC (Auto) Urine Chloride Urine Total Protein Crossmatch 10/25/16 10/25/16 10/25/16 09:49 12:10 19:25 WBC 21.1 H RBC 3.02 L Hgb 9.3 L Hct 28.9 L MCV RDW 16.3 H Plt Count Lymph % (Auto) [place] % (Auto) [place] # Seg Neutrophils % Seg Neuts % (Manual) 81.0 H Lymphocytes % (Manual) 9.0 L Monocytes % (Manual) Nucleated RBC % Seg Neutrophils # Seg Neutrophils # Man 17.1 H Lymphocytes # (Manual) Monocytes # (Manual) Eosinophils # (Manual) Basophils # (Manual) PT INR APTT Heparin Anti-Xa Level POC ABG pH POC ABG pCO2 POC ABG pO2 Sodium Potassium Chloride Carbon Dioxide BUN Creatinine Glucose POC Glucose 158 H 151 H Calcium Phosphorus Magnesium AST Alkaline Phosphatase C-Reactive Protein Total Protein Albumin Lipase Vitamin B12 TSH Urine WBC (Auto) Urine Chloride Urine Total Protein Crossmatch 10/26/16 10/26/16 10/26/16 00:20 01:09 05:02 WBC 22.2 H RBC 2.89 L Hgb 8.7 L Hct 27.8 L MCV RDW 16.4 H Plt Count Lymph % (Auto) [place] % (Auto) [place] # Seg Neutrophils % Seg Neuts % (Manual) Lymphocytes % (Manual) Monocytes % (Manual) Nucleated RBC % Seg Neutrophils # Seg Neutrophils # Man Lymphocytes # (Manual) Monocytes # (Manual) Eosinophils # (Manual) Basophils # (Manual) PT INR APTT Heparin Anti-Xa Level POC ABG pH POC ABG pCO2 POC ABG pO2 Sodium Potassium Chloride Carbon Dioxide BUN Creatinine Glucose POC Glucose 44 L 112 H Calcium Phosphorus Magnesium AST Alkaline Phosphatase C-Reactive Protein Total Protein Albumin Lipase Vitamin B12 TSH Urine WBC (Auto) Urine Chloride Urine Total Protein Crossmatch 10/26/16 10/26/16 10/26/16 05:02 12:11 12:14 WBC RBC Hgb Hct MCV RDW Plt Count Lymph % (Auto) [place] % (Auto) [place] # Seg Neutrophils % Seg Neuts % (Manual) Lymphocytes % (Manual) Monocytes % (Manual) Nucleated RBC % Seg Neutrophils # Seg Neutrophils # Man Lymphocytes # (Manual) Monocytes # (Manual) Eosinophils # (Manual) Basophils # (Manual) PT INR APTT Heparin Anti-Xa Level POC ABG pH POC ABG pCO2 32.0 L POC ABG pO2 33 L Sodium Potassium 3.2 L D Chloride Carbon Dioxide 20 L BUN 24 H Creatinine Glucose 104 H POC Glucose 194 H Calcium 7.7 L Phosphorus Magnesium AST Alkaline Phosphatase C-Reactive Protein Total Protein Albumin Lipase Vitamin B12 TSH Urine WBC (Auto) Urine Chloride Urine Total Protein Crossmatch 10/26/16 10/26/16 10/27/16 15:28 17:23 00:04 WBC RBC Hgb Hct MCV RDW Plt Count Lymph % (Auto) [place] % (Auto) [place] # Seg Neutrophils % Seg Neuts % (Manual) Lymphocytes % (Manual) Monocytes % (Manual) Nucleated RBC % Seg Neutrophils # Seg Neutrophils # Man Lymphocytes # (Manual) Monocytes # (Manual) Eosinophils # (Manual) Basophils # (Manual) PT INR APTT Heparin Anti-Xa Level POC ABG pH POC ABG pCO2 33.7 L POC ABG pO2 Sodium Potassium Chloride Carbon Dioxide BUN Creatinine Glucose POC Glucose 181 H 230 H Calcium Phosphorus Magnesium AST Alkaline Phosphatase C-Reactive Protein Total Protein Albumin Lipase Vitamin B12 TSH Urine WBC (Auto) Urine Chloride Urine Total Protein Crossmatch 10/27/16 10/27/16 10/27/16 05:15 05:15 05:38 WBC 25.5 H RBC 3.07 L Hgb 9.4 L Hct 30.1 L MCV 98 H RDW 16.4 H Plt Count 527 H Lymph % (Auto) [place] % (Auto) [place] # Seg Neutrophils % Seg Neuts % (Manual) Lymphocytes % (Manual) Monocytes % (Manual) Nucleated RBC % Seg Neutrophils # Seg Neutrophils # Man Lymphocytes # (Manual) Monocytes # (Manual) Eosinophils # (Manual) Basophils # (Manual) PT INR APTT Heparin Anti-Xa Level POC ABG pH POC ABG pCO2 POC ABG pO2 Sodium Potassium Chloride Carbon Dioxide 19 L BUN 23 H Creatinine Glucose 160 H POC Glucose 168 H Calcium 8.0 L Phosphorus Magnesium AST Alkaline Phosphatase C-Reactive Protein Total Protein Albumin Lipase Vitamin B12 TSH Urine WBC (Auto) Urine Chloride Urine Total Protein Crossmatch 10/27/16 10/27/16 10/27/16 11:59 18:35 23:48 WBC RBC Hgb Hct MCV RDW Plt Count Lymph % (Auto) [place] % (Auto) [place] # Seg Neutrophils % Seg Neuts % (Manual) Lymphocytes % (Manual) Monocytes % (Manual) Nucleated RBC % Seg Neutrophils # Seg Neutrophils # Man Lymphocytes # (Manual) Monocytes # (Manual) Eosinophils # (Manual) Basophils # (Manual) PT INR APTT Heparin Anti-Xa Level POC ABG pH POC ABG pCO2 POC ABG pO2 Sodium Potassium Chloride Carbon Dioxide BUN Creatinine Glucose POC Glucose 197 H 318 H 316 H Calcium Phosphorus Magnesium AST Alkaline Phosphatase C-Reactive Protein Total Protein Albumin Lipase Vitamin B12 TSH Urine WBC (Auto) Urine Chloride Urine Total Protein Crossmatch 10/28/16 10/28/1610/28/17 03:13 04:10 04:10 WBC 18.8 H RBC 2.64 L Hgb 8.1 L Hct 26.1 L MCV 99 H RDW 16.2 H Plt Count 544 H Lymph % (Auto) [place] % (Auto) [place] # Seg Neutrophils % Seg Neuts % (Manual) Lymphocytes % (Manual) Monocytes % (Manual) Nucleated RBC % Seg Neutrophils # Seg Neutrophils # Man Lymphocytes # (Manual) Monocytes # (Manual) Eosinophils # (Manual) Basophils # (Manual) PT INR APTT Heparin Anti-Xa Level POC ABG pH POC ABG pCO2 POC ABG pO2 Sodium Potassium Chloride Carbon Dioxide 21 L BUN 24 H Creatinine Glucose 302 H POC Glucose 304 H Calcium 7.7 L Phosphorus Magnesium AST Alkaline Phosphatase C-Reactive Protein Total Protein Albumin Lipase Vitamin B12 TSH Urine WBC (Auto) Urine Chloride Urine Total Protein Crossmatch 10/28/16 10/28/16 10/28/16 04:10 12:36 18:27 WBC RBC Hgb Hct MCV RDW Plt Count Lymph % (Auto) [place] % (Auto) [place] # Seg Neutrophils % Seg Neuts % (Manual) Lymphocytes % (Manual) Monocytes % (Manual) Nucleated RBC % Seg Neutrophils # Seg Neutrophils # Man Lymphocytes # (Manual) Monocytes # (Manual) Eosinophils # (Manual) Basophils # (Manual) PT INR APTT Heparin Anti-Xa Level 0.20 L POC ABG pH POC ABG pCO2 POC ABG pO2 Sodium Potassium Chloride Carbon Dioxide BUN Creatinine Glucose POC Glucose 205 H 339 H Calcium Phosphorus Magnesium AST Alkaline Phosphatase C-Reactive Protein Total Protein Albumin Lipase Vitamin B12 TSH Urine WBC (Auto) Urine Chloride Urine Total Protein Crossmatch 10/29/16 10/29/16 10/29/16 01:05 06:19 09:30 WBC 20.3 H RBC 2.80 L Hgb 8.5 L Hct 26.7 L MCV RDW 15.4 H Plt Count 571 H Lymph % (Auto) [place] % (Auto) [place] # Seg Neutrophils % Seg Neuts % (Manual) 75.0 H Lymphocytes % (Manual) 4.0 L Monocytes % (Manual) Nucleated RBC % Seg Neutrophils # Seg Neutrophils # Man 15.2 H Lymphocytes # (Manual) 0.8 L Monocytes # (Manual) Eosinophils # (Manual) Basophils # (Manual) PT INR APTT Heparin Anti-Xa Level POC ABG pH POC ABG pCO2 POC ABG pO2 Sodium Potassium Chloride Carbon Dioxide BUN Creatinine Glucose POC Glucose 275 H 179 H Calcium Phosphorus Magnesium AST Alkaline Phosphatase C-Reactive Protein Total Protein Albumin Lipase Vitamin B12 TSH Urine WBC (Auto) Urine Chloride Urine Total Protein Crossmatch 10/29/16 10/29/16 10/29/16 11:46 15:18 17:55 WBC RBC Hgb Hct MCV RDW Plt Count Lymph % (Auto) [place] % (Auto) [place] # Seg Neutrophils % Seg Neuts % (Manual) Lymphocytes % (Manual) Monocytes % (Manual) Nucleated RBC % Seg Neutrophils # Seg Neutrophils # Man Lymphocytes # (Manual) Monocytes # (Manual) Eosinophils # (Manual) Basophils # (Manual) PT INR APTT Heparin Anti-Xa Level 1.15 H POC ABG pH POC ABG pCO2 POC ABG pO2 Sodium Potassium Chloride Carbon Dioxide BUN Creatinine Glucose POC Glucose 122 H 255 H Calcium Phosphorus Magnesium AST Alkaline Phosphatase C-Reactive Protein Total Protein Albumin Lipase Vitamin B12 TSH Urine WBC (Auto) Urine Chloride Urine Total Protein Crossmatch 10/30/16 10/30/16 10/30/16 00:10 05:30 05:30 WBC 19.8 H RBC 2.51 L Hgb 7.7 L Hct 24.1 L MCV RDW 15.5 H Plt Count 534 H Lymph % (Auto) [place] % (Auto) [place] # Seg Neutrophils % Seg Neuts % (Manual) Lymphocytes % (Manual) Monocytes % (Manual) Nucleated RBC % Seg Neutrophils # Seg Neutrophils # Man Lymphocytes # (Manual) Monocytes # (Manual) Eosinophils # (Manual) Basophils # (Manual) PT INR APTT Heparin Anti-Xa Level POC ABG pH POC ABG pCO2 POC ABG pO2 Sodium Potassium Chloride Carbon Dioxide BUN Creatinine Glucose 211 H POC Glucose 202 H Calcium 7.4 L Phosphorus Magnesium AST Alkaline Phosphatase C-Reactive Protein Total Protein Albumin Lipase Vitamin B12 TSH Urine WBC (Auto) Urine Chloride Urine Total Protein Crossmatch 10/30/16 10/30/16 10/30/16 06:32 12:51 17:47 WBC RBC Hgb Hct MCV RDW Plt Count Lymph % (Auto) [place] % (Auto) [place] # Seg Neutrophils % Seg Neuts % (Manual) Lymphocytes % (Manual) Monocytes % (Manual) Nucleated RBC % Seg Neutrophils # Seg Neutrophils # Man Lymphocytes # (Manual) Monocytes # (Manual) Eosinophils # (Manual) Basophils # (Manual) PT INR APTT Heparin Anti-Xa Level POC ABG pH POC ABG pCO2 POC ABG pO2 Sodium Potassium Chloride Carbon Dioxide BUN Creatinine Glucose POC Glucose 207 H 218 H 169 H Calcium Phosphorus Magnesium AST Alkaline Phosphatase C-Reactive Protein Total Protein Albumin Lipase Vitamin B12 TSH Urine WBC (Auto) Urine Chloride Urine Total Protein Crossmatch 10/30/16 10/31/16 10/31/16 23:59 05:25 11:21 WBC RBC Hgb Hct MCV RDW Plt Count Lymph % (Auto) [place] % (Auto) [place] # Seg Neutrophils % Seg Neuts % (Manual) Lymphocytes % (Manual) Monocytes % (Manual) Nucleated RBC % Seg Neutrophils # Seg Neutrophils # Man Lymphocytes # (Manual) Monocytes # (Manual) Eosinophils # (Manual) Basophils # (Manual) PT INR APTT Heparin Anti-Xa Level POC ABG pH POC ABG pCO2 POC ABG pO2 Sodium Potassium Chloride Carbon Dioxide BUN Creatinine Glucose POC Glucose 138 H 127 H 132 H Calcium Phosphorus Magnesium AST Alkaline Phosphatase C-Reactive Protein Total Protein Albumin Lipase Vitamin B12 TSH Urine WBC (Auto) Urine Chloride Urine Total Protein Crossmatch 10/31/16 10/31/16 11/01/16 17:07 23:54 05:47 WBC RBC Hgb Hct MCV RDW Plt Count Lymph % (Auto) [place] % (Auto) [place] # Seg Neutrophils % Seg Neuts % (Manual) Lymphocytes % (Manual) Monocytes % (Manual) Nucleated RBC % Seg Neutrophils # Seg Neutrophils # Man Lymphocytes # (Manual) Monocytes # (Manual) Eosinophils # (Manual) Basophils # (Manual) PT INR APTT Heparin Anti-Xa Level POC ABG pH POC ABG pCO2 POC ABG pO2 Sodium Potassium Chloride Carbon Dioxide BUN Creatinine Glucose POC Glucose 138 H 153 H 150 H Calcium Phosphorus Magnesium AST Alkaline Phosphatase C-Reactive Protein Total Protein Albumin Lipase Vitamin B12 TSH Urine WBC (Auto) Urine Chloride Urine Total Protein Crossmatch 11/01/16 11/01/16 11/01/16 06:33 06:33 12:16 WBC 19.2 H RBC 2.51 L Hgb 7.9 L Hct 24.8 L MCV 99 H D RDW 16.1 H Plt Count 569 H Lymph % (Auto) [place] % (Auto) [place] # Seg Neutrophils % Seg Neuts % (Manual) Lymphocytes % (Manual) Monocytes % (Manual) Nucleated RBC % Seg Neutrophils # Seg Neutrophils # Man Lymphocytes # (Manual) Monocytes # (Manual) Eosinophils # (Manual) Basophils # (Manual) PT INR APTT Heparin Anti-Xa Level POC ABG pH POC ABG pCO2 POC ABG pO2 Sodium Potassium 3.5 L Chloride Carbon Dioxide 21 L BUN Creatinine Glucose 137 H POC Glucose 125 H Calcium 7.7 L Phosphorus Magnesium AST Alkaline Phosphatase 148 H C-Reactive Protein Total Protein 6.2 L Albumin 2.0 L Lipase Vitamin B12 TSH Urine WBC (Auto) Urine Chloride Urine Total Protein Crossmatch 11/01/16 11/02/16 11/02/16 17:37 00:05 04:15 WBC RBC Hgb Hct MCV RDW Plt Count Lymph % (Auto) [place] % (Auto) [place] # Seg Neutrophils % Seg Neuts % (Manual) Lymphocytes % (Manual) Monocytes % (Manual) Nucleated RBC % Seg Neutrophils # Seg Neutrophils # Man Lymphocytes # (Manual) Monocytes # (Manual) Eosinophils # (Manual) Basophils # (Manual) PT INR APTT Heparin Anti-Xa Level < 0.10 L POC ABG pH POC ABG pCO2 POC ABG pO2 Sodium Potassium 3.2 L Chloride Carbon Dioxide BUN 6 L Creatinine Glucose 135 H POC Glucose 164 H Calcium 7.5 L Phosphorus Magnesium AST Alkaline Phosphatase 132 H C-Reactive Protein Total Protein 6.2 L Albumin 1.8 L Lipase Vitamin B12 TSH Urine WBC (Auto) Urine Chloride Urine Total Protein Crossmatch 11/02/16 11/02/16 11/02/16 04:15 05:54 12:15 WBC 17.7 H RBC 2.43 L Hgb 7.6 L Hct 23.5 L MCV RDW 15.9 H Plt Count 502 H Lymph % (Auto) [place] % (Auto) [place] # Seg Neutrophils % Seg Neuts % (Manual) 84.0 H Lymphocytes % (Manual) 11.0 L Monocytes % (Manual) Nucleated RBC % 1.0 H Seg Neutrophils # Seg Neutrophils # Man 14.9 H Lymphocytes # (Manual) Monocytes # (Manual) Eosinophils # (Manual) Basophils # (Manual) PT INR APTT Heparin Anti-Xa Level POC ABG pH POC ABG pCO2 POC ABG pO2 Sodium Potassium Chloride Carbon Dioxide BUN Creatinine Glucose POC Glucose 152 H 137 H Calcium Phosphorus Magnesium AST Alkaline Phosphatase C-Reactive Protein Total Protein Albumin Lipase Vitamin B12 TSH Urine WBC (Auto) Urine Chloride Urine Total Protein Crossmatch 11/02/16 11/03/16 11/03/16 17:00 00:05 00:05 WBC RBC Hgb Hct MCV RDW Plt Count Lymph % (Auto) [place] % (Auto) [place] # Seg Neutrophils % Seg Neuts % (Manual) Lymphocytes % (Manual) Monocytes % (Manual) Nucleated RBC % Seg Neutrophils # Seg Neutrophils # Man Lymphocytes # (Manual) Monocytes # (Manual) Eosinophils # (Manual) Basophils # (Manual) PT INR APTT Heparin Anti-Xa Level POC ABG pH POC ABG pCO2 POC ABG pO2 Sodium Potassium Chloride Carbon Dioxide 20 L BUN 5 L Creatinine Glucose 139 H POC Glucose 161 H Calcium 6.7 L Phosphorus Magnesium 1.2 L AST Alkaline Phosphatase C-Reactive Protein Total Protein Albumin Lipase Vitamin B12 TSH Urine WBC (Auto) Urine Chloride Urine Total Protein Crossmatch 11/03/16 11/03/16 11/03/16 00:05 02:05 04:23 WBC 15.9 H 14.0 H RBC 1.93 L 2.38 L Hgb 5.9 L* 7.3 L Hct 18.9 L* 23.1 L MCV 98 H RDW 15.9 H 15.9 H Plt Count Lymph % (Auto) [place] % (Auto) [place] # Seg Neutrophils % Seg Neuts % (Manual) 85.0 H Lymphocytes % (Manual) 4.0 L Monocytes % (Manual) Nucleated RBC % Seg Neutrophils # Seg Neutrophils # Man 13.5 H Lymphocytes # (Manual) 0.6 L Monocytes # (Manual) Eosinophils # (Manual) Basophils # (Manual) PT INR APTT Heparin Anti-Xa Level POC ABG pH POC ABG pCO2 POC ABG pO2 Sodium Potassium Chloride Carbon Dioxide BUN 5 L Creatinine Glucose 127 H POC Glucose Calcium 7.2 L Phosphorus Magnesium AST Alkaline Phosphatase C-Reactive Protein Total Protein 5.8 L Albumin 1.5 L Lipase Vitamin B12 TSH Urine WBC (Auto) Urine Chloride Urine Total Protein Crossmatch 11/03/16 11/03/16 11/03/16 09:14 09:27 11:54 WBC RBC Hgb Hct MCV RDW Plt Count Lymph % (Auto) [place] % (Auto) [place] # Seg Neutrophils % Seg Neuts % (Manual) Lymphocytes % (Manual) Monocytes % (Manual) Nucleated RBC % Seg Neutrophils # Seg Neutrophils # Man Lymphocytes # (Manual) Monocytes # (Manual) Eosinophils # (Manual) Basophils # (Manual) PT INR APTT Heparin Anti-Xa Level 0.11 L POC ABG pH POC ABG pCO2 POC ABG pO2 Sodium Potassium Chloride Carbon Dioxide BUN 5 L Creatinine Glucose 111 H POC Glucose 139 H Calcium 6.7 L Phosphorus Magnesium AST Alkaline Phosphatase C-Reactive Protein Total Protein Albumin Lipase Vitamin B12 TSH Urine WBC (Auto) Urine Chloride Urine Total Protein Crossmatch 11/03/16 11/03/16 11/03/16 16:26 18:01 18:01 WBC RBC Hgb Hct MCV RDW Plt Count Lymph % (Auto) [place] % (Auto) [place] # Seg Neutrophils % Seg Neuts % (Manual) Lymphocytes % (Manual) Monocytes % (Manual) Nucleated RBC % Seg Neutrophils # Seg Neutrophils # Man Lymphocytes # (Manual) Monocytes # (Manual) Eosinophils # (Manual) Basophils # (Manual) PT INR APTT Heparin Anti-Xa Level 2.00 H POC ABG pH POC ABG pCO2 POC ABG pO2 Sodium Potassium Chloride Carbon Dioxide BUN Creatinine Glucose POC Glucose 142 H Calcium Phosphorus Magnesium AST Alkaline Phosphatase C-Reactive Protein Total Protein Albumin Lipase Vitamin B12 TSH Urine WBC (Auto) Urine Chloride Urine Total Protein Crossmatch See Detail 11/04/16 11/04/16 11/04/16 02:15 02:15 06:35 WBC 11.8 H RBC 2.39 L Hgb 7.4 L Hct 23.1 L MCV RDW 15.9 H Plt Count Lymph % (Auto) [place] % (Auto) [place] # Seg Neutrophils % Seg Neuts % (Manual) 76.0 H Lymphocytes % (Manual) 12.0 L Monocytes % (Manual) 9.0 H Nucleated RBC % Seg Neutrophils # Seg Neutrophils # Man 9.0 H Lymphocytes # (Manual) Monocytes # (Manual) 1.1 H Eosinophils # (Manual) Basophils # (Manual) PT INR APTT Heparin Anti-Xa Level < 0.10 L POC ABG pH POC ABG pCO2 POC ABG pO2 Sodium Potassium Chloride Carbon Dioxide 21 L BUN 5 L Creatinine Glucose 112 H POC Glucose Calcium 6.8 L Phosphorus Magnesium AST Alkaline Phosphatase C-Reactive Protein Total Protein 5.7 L Albumin 1.7 L Lipase Vitamin B12 TSH Urine WBC (Auto) Urine Chloride Urine Total Protein Crossmatch 11/04/16 11/04/16 11/04/16 10:51 12:58 15:04 WBC RBC Hgb Hct MCV RDW Plt Count Lymph % (Auto) [place] % (Auto) [place] # Seg Neutrophils % Seg Neuts % (Manual) Lymphocytes % (Manual) Monocytes % (Manual) Nucleated RBC % Seg Neutrophils # Seg Neutrophils # Man Lymphocytes # (Manual) Monocytes # (Manual) Eosinophils # (Manual) Basophils # (Manual) PT INR APTT Heparin Anti-Xa Level 1.05 H POC ABG pH POC ABG pCO2 33.7 L POC ABG pO2 60 L Sodium Potassium Chloride Carbon Dioxide BUN Creatinine Glucose POC Glucose 118 H Calcium Phosphorus Magnesium AST Alkaline Phosphatase C-Reactive Protein Total Protein Albumin Lipase Vitamin B12 TSH Urine WBC (Auto) Urine Chloride Urine Total Protein Crossmatch 11/04/16 11/04/16 11/05/16 17:20 20:31 02:30 WBC RBC Hgb Hct MCV RDW Plt Count Lymph % (Auto) [place] % (Auto) [place] # Seg Neutrophils % Seg Neuts % (Manual) Lymphocytes % (Manual) Monocytes % (Manual) Nucleated RBC % Seg Neutrophils # Seg Neutrophils # Man Lymphocytes # (Manual) Monocytes # (Manual) Eosinophils # (Manual) Basophils # (Manual) PT INR APTT Heparin Anti-Xa Level POC ABG pH POC ABG pCO2 POC ABG pO2 Sodium Potassium 3.5 L Chloride Carbon Dioxide 18 L BUN 5 L Creatinine 0.6 L Glucose 110 H POC Glucose 228 H 169 H Calcium 7.1 L Phosphorus Magnesium AST Alkaline Phosphatase C-Reactive Protein Total Protein Albumin 1.9 L Lipase Vitamin B12 TSH Urine WBC (Auto) Urine Chloride Urine Total Protein Crossmatch 11/05/16 11/05/16 11/05/16 02:30 17:52 21:07 WBC 14.1 H RBC Hgb Hct MCV RDW 16.7 H Plt Count Lymph % (Auto) [place] % (Auto) [place] # Seg Neutrophils % Seg Neuts % (Manual) 80.0 H Lymphocytes % (Manual) 6.0 L Monocytes % (Manual) 8.0 H Nucleated RBC % Seg Neutrophils # Seg Neutrophils # Man 11.3 H Lymphocytes # (Manual) 0.8 L Monocytes # (Manual) 1.1 H Eosinophils # (Manual) Basophils # (Manual) PT INR APTT Heparin Anti-Xa Level < 0.10 L POC ABG pH POC ABG pCO2 POC ABG pO2 Sodium Potassium Chloride Carbon Dioxide BUN Creatinine Glucose POC Glucose 174 H Calcium Phosphorus Magnesium AST Alkaline Phosphatase C-Reactive Protein Total Protein Albumin Lipase Vitamin B12 TSH Urine WBC (Auto) Urine Chloride Urine Total Protein Crossmatch 11/05/16 11/06/16 11/06/16 23:30 05:00 05:00 WBC 15.2 H RBC 3.29 L Hgb 10.0 L Hct MCV RDW 16.9 H Plt Count Lymph % (Auto) [place] % (Auto) [place] # Seg Neutrophils % Seg Neuts % (Manual) Lymphocytes % (Manual) Monocytes % (Manual) Nucleated RBC % Seg Neutrophils # Seg Neutrophils # Man Lymphocytes # (Manual) Monocytes # (Manual) Eosinophils # (Manual) Basophils # (Manual) PT INR APTT Heparin Anti-Xa Level 0.94 H POC ABG pH POC ABG pCO2 POC ABG pO2 Sodium Potassium Chloride Carbon Dioxide BUN Creatinine Glucose POC Glucose 131 H Calcium Phosphorus Magnesium AST Alkaline Phosphatase C-Reactive Protein Total Protein Albumin Lipase Vitamin B12 TSH Urine WBC (Auto) Urine Chloride Urine Total Protein Crossmatch 11/06/16 05:00 WBC RBC Hgb Hct MCV RDW Plt Count Lymph % (Auto) [place] % (Auto) [place] # Seg Neutrophils % Seg Neuts % (Manual) Lymphocytes % (Manual) Monocytes % (Manual) Nucleated RBC % Seg Neutrophils # Seg Neutrophils # Man Lymphocytes # (Manual) Monocytes # (Manual) Eosinophils # (Manual) Basophils # (Manual) PT INR APTT Heparin Anti-Xa Level POC ABG pH POC ABG pCO2 POC ABG pO2 Sodium Potassium 3.5 L Chloride 107.1 H Carbon Dioxide 20 L BUN 4 L Creatinine 0.6 L Glucose 104 H POC Glucose Calcium 6.7 L Phosphorus Magnesium AST Alkaline Phosphatase C-Reactive Protein Total Protein Albumin Lipase Vitamin B12 TSH Urine WBC (Auto) Urine Chloride Urine Total Protein Crossmatch Allied health notes reviewed: RT
--- NOTE | 2016-11-06 11:08 | Post Anesthesia Evaluation ---
- Post Anesthesia Evaluation Patient Participated: Yes (nods head yes or no) Airway Patent: Yes Stable Respiratory Function: Yes Nausea/Vomiting: No Temp > 96.8F: Yes Pain Manageable: Yes Adequeate Hydration: Yes Anesthesia Complications: No Block Receding Appropriately: Not Applicable Patient on Ventilator: Yes
[2016-11-06] MEDS: PEPCID PO SCH ×2 (11:53→22:31)
--- NOTE | 2016-11-06 11:53 | Progress Note ---
Assessment and Plan Assessment and plan: 1. Acute respiratory failure with hypercapnia. Vent supported. s/p Trach and PEG. Continue with bronchodilators and wean as tolerated. 2. Diabetes mellitus type II. Continue Sliding scale insulin 3. Sepsis- Leukocytosis Improving Suspected due to UTI, urine has only grown Paula, sputum cultures grew group B strep, continue broad-spectrum antibiotics, infectious disease input appreciated 4. 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/right lower extremity gangrene. The patient is status post right below the knee amputation. 5. Hypokalemia: Supplement potassium as needed 6. Toxic metabolic encephalopathy. Continue supportive care. 7. Sinus Tachycardia. Physiologic secondary to sepsis. 8. Anemia. Multifactorial including sepsis. s/p transfusion of PRBCs. Continue to follow H&H. History Interval history: No new issues overnight. The patient went for right [id number] amputation this morning. Hospitalist Physical - Constitutional Vitals: Temp Pulse Resp BP Pulse Ox 98.6 F 106 H 44 H 158/64 96 11/06/16 10:36 11/06/16 11:30 11/06/16 11:30 11/06/16 11:30 11/06/16 11:30 General appearance: Present: no acute distress - EENT Eyes: Present: PERRL, EOM intact ENT: hearing intact, clear oral mucosa, dentition normal - Neck Neck: Present: supple, normal ROM - Respiratory Respiratory effort: normal Respiratory: bilateral: CTA - Cardiovascular Rhythm: regular Heart Sounds: Present: S1 & S2. Absent: gallop, rub - Extremities Extremities: no ischemia, No edema, Full ROM - Abdominal General gastrointestinal: soft, non-tender, non-distended, normal bowel sounds - Integumentary Integumentary: Present: clear, warm, dry - Neurologic Neurologic: CNII-XII intact, moves all extremities Results - Labs CBC & Chem 7: 11/06/16 05:00 11/06/16 05:00 Labs: Laboratory Last Values WBC 15.2 K/mm3 (4.5-11.0) H 11/06/16 05:00 RBC 3.29 M/mm3 (3.65-5.03) L 11/06/16 05:00 Hgb 10.0 gm/dl (10.1-14.3) L 11/06/16 05:00 Hct 30.8 % (30.3-42.9) 11/06/16 05:00 MCV 94 fl (79-97) 11/06/16 05:00 MCH 31 pg (28-32) 11/06/16 05:00 MCHC 33 % (30-34) 11/06/16 05:00 RDW 16.9 % (13.2-15.2) H 11/06/16 05:00 Plt Count 311 K/mm3 (140-440) 11/06/16 05:00 Lymph % (Auto) Wire Roller 11/04/16 02:15 Baker % (Auto) Wire Roller 11/04/16 02:15 Eos % (Auto) Wire Roller 11/04/16 02:15 Baso % (Auto) Wire Roller 11/04/16 02:15 Lymph # Wire Roller 11/04/16 02:15 Baker # Wire Roller 11/04/16 02:15 Eos # Wire Roller 11/04/16 02:15 Baso # Wire Roller 11/04/16 02:15 Add Manual Diff Complete 11/05/16 02:30 Total Counted 100 11/05/16 02:30 Seg Neutrophils % Wire Roller 11/04/16 02:15 Seg Neuts % (Manual) 80.0 % (40.0-70.0) H 11/05/16 02:30 Band Neutrophils % 0 % 11/05/16 02:30 Lymphocytes % (Manual) 6.0 % (13.4-35.0) L 11/05/16 02:30 Reactive Lymphs % (Man) 0 % 11/05/16 02:30 Monocytes % (Manual) 8.0 % (0.0-7.3) H 11/05/16 02:30 Eosinophils % (Manual) 0 % (0.0-4.3) 11/05/16 02:30 Basophils % (Manual) 0 % (0.0-1.8) 11/05/16 02:30 Metamyelocytes % 1.0 % 11/05/16 02:30 Myelocytes % 3.0 % 11/05/16 02:30 Promyelocytes % 2.0 % 11/05/16 02:30 Blast Cells % 0 % 11/05/16 02:30 Nucleated RBC % Not Reportable 11/05/16 02:30 Seg Neutrophils # Wire Roller 11/04/16 02:15 Seg Neutrophils # Man 11.3 K/mm3 (1.8-7.7) H 11/05/16 02:30 Band Neutrophils # 0.0 K/mm3 11/05/16 02:30 Lymphocytes # (Manual) 0.8 K/mm3 (1.2-5.4) L 11/05/16 02:30 Abs React Lymphs (Man) 0.0 K/mm3 11/05/16 02:30 Monocytes # (Manual) 1.1 K/mm3 (0.0-0.8) H 11/05/16 02:30 Eosinophils # (Manual) 0.0 K/mm3 (0.0-0.4) 11/05/16 02:30 Basophils # (Manual) 0.0 K/mm3 (0.0-0.1) 11/05/16 02:30 Metamyelocytes # 0.1 K/mm3 11/05/16 02:30 Myelocytes # 0.4 K/mm3 11/05/16 02:30 Promyelocytes # 0.3 K/mm3 11/05/16 02:30 Blast Cells # 0.0 K/mm3 11/05/16 02:30 Pathologist Review 10/29/16 09:30 WBC Morphology Not Reportable 11/05/16 02:30 Hypersegmented Neuts Not Reportable 11/05/16 02:30 Hyposegmented Neuts Not Reportable 11/05/16 02:30 Hypogranular Neuts Not Reportable 11/05/16 02:30 Hypersegmented Polys TNR 10/17/16 07:08 Smudge Cells Not Reportable 11/05/16 02:30 Toxic Granulation Not Reportable 11/05/16 02:30 Toxic Vacuolation Not Reportable 11/05/16 02:30 Dohle Bodies Not Reportable 11/05/16 02:30 Pelger-Huet Anomaly Not Reportable 11/05/16 02:30 [place] Rods Not Reportable 11/05/16 02:30 Platelet Estimate Appears normal 11/05/16 02:30 Clumped Platelets Not Reportable 11/05/16 02:30 Plt Clumps, EDTA Not Reportable 11/05/16 02:30 Large Platelets Not Reportable 11/05/16 02:30 Giant Platelets Not Reportable 11/05/16 02:30 Platelet Satelliting Not Reportable 11/05/16 02:30 Plt Morphology Comment Not Reportable 11/05/16 02:30 RBC Morphology Not Reportable 11/05/16 02:30 Dimorphic RBCs Not Reportable 11/05/16 02:30 Polychromasia Few 11/05/16 02:30 Hypochromasia Not Reportable 11/05/16 02:30 Poikilocytosis Not Reportable 11/05/16 02:30 Basophilic Stippling TNR 10/17/16 07:08 Anisocytosis 1+ 11/05/16 02:30 Microcytosis Not Reportable 11/05/16 02:30 Macrocytosis Not Reportable 11/05/16 02:30 Spherocytes Not Reportable 11/05/16 02:30 Pappenheimer Bodies Not Reportable 11/05/16 02:30 Sickle Cells Not Reportable 11/05/16 02:30 Target Cells Not Reportable 11/05/16 02:30 Tear Drop Cells Not Reportable 11/05/16 02:30 Ovalocytes Not Reportable 11/05/16 02:30 Stomatocytes Few 11/03/16 00:05 Helmet Cells Not Reportable 11/05/16 02:30 [place] Bodies Not Reportable 11/05/16 02:30 [place] Rings Not Reportable 11/05/16 02:30 Jeannette Cells Not Reportable 11/05/16 02:30 Bite Cells Not Reportable 11/05/16 02:30 Crenated Cell Not Reportable 11/05/16 02:30 Elliptocytes Not Reportable 11/05/16 02:30 Acanthocytes (Spur) Not Reportable 11/05/16 02:30 Rouleaux Not Reportable 11/05/16 02:30 Hemoglobin C Crystals Not Reportable 11/05/16 02:30 Schistocytes Not Reportable 11/05/16 02:30 Malaria parasites Not Reportable 11/05/16 02:30 David Bodies Not Reportable 11/05/16 02:30 Hem Pathologist Commnt No 11/05/16 02:30 PT 16.4 Sec. (12.2-14.9) H 10/17/16 16:07 INR 1.33 (0.87-1.13) H 10/17/16 16:07 APTT 38.8 Sec. (24.2-36.6) H 10/17/16 16:07 Heparin Anti-Xa Level 0.94 U.I./ml (0.3-0.7) H 11/06/16 05:00 POC ABG pH 7.394 (7.35-7.45) 11/04/16 12:58 POC ABG pCO2 33.7 (35-45) L 11/04/16 12:58 POC ABG pO2 60 (80-105) L 11/04/16 12:58 POC ABG HCO3 20.6 11/04/16 12:58 POC ABG Total CO2 22 11/04/16 12:58 POC ABG O2 Sat 91 11/04/16 12:58 POC ABG Base Excess -4 11/04/16 12:58 VBG pH 7.020 (7.320-7.420) L* 10/13/16 04:22 FiO2 25 % 11/04/16 12:58 Sodium 140 mmol/L (137-145) 11/06/16 05:00 Potassium 3.5 mmol/L (3.6-5.0) L 11/06/16 05:00 Chloride 107.1 mmol/L (98-107) H 11/06/16 05:00 Carbon Dioxide 20 mmol/L (22-30) L 11/06/16 05:00 Anion Gap 16 mmol/L 11/06/16 05:00 BUN 4 mg/dL (7-17) L 11/06/16 05:00 Creatinine 0.6 mg/dL (0.7-1.2) L 11/06/16 05:00 Estimated GFR > 60 ml/min 11/06/16 05:00 BUN/Creatinine Ratio 6.66 % 11/06/16 05:00 Glucose 104 mg/dL (65-100) H 11/06/16 05:00 POC Glucose 131 (70-105) H 11/05/16 23:30 Osmolality 332 Mosm/kg 10/14/16 07:03 Lactic Acid 1.8 mmol/L (0.7-2.0) 10/14/16 07:03 Calcium 6.7 mg/dL (8.4-10.2) L 11/06/16 05:00 Phosphorus 2.7 mg/dL (2.5-4.5) D 10/21/16 Unknown Magnesium 1.2 mg/dL (1.7-2.3) L 11/03/16 00:05 Total Bilirubin 0.3 mg/dL (0.1-1.2) 11/05/16 02:30 AST 9 units/L (5-40) 11/05/16 02:30 ALT 11 units/L (7-56) 11/05/16 02:30 Alkaline Phosphatase 119 units/L (35-129) 11/05/16 02:30 Ammonia 35.0 umol/L (25-60) 10/13/16 05:40 Total Creatine Kinase 107 units/L (30-135) 10/13/16 04:22 CK-MB (CK-2) 3.1 ng/mL (0.0-4.0) 10/13/16 04:22 CK-MB (CK-2) Rel Index 2.8 (0-4) 10/13/16 04:22 Troponin T < 0.010 ng/mL (0.00-0.029) 10/14/16 18:55 C-Reactive Protein 10.50 mg/dL (0.00-1.30) H 10/13/16 16:14 Total Protein 6.7 g/dL (6.3-8.2) 11/05/16 02:30 Albumin 1.9 g/dL (3.9-5) L 11/05/16 02:30 Albumin/Globulin Ratio 0.4 % 11/05/16 02:30 Amylase 57 units/L (27-131) 10/26/16 20:00 Lipase 58 units/L (13-60) 10/26/16 20:00 Vitamin B12 976.8 pg/mL (211-911) H 10/22/16 10:25 TSH 0.162 mlU/mL (0.270-4.200) L 10/22/16 14:50 Free T4 0.77 ng/dL (0.76-1.46) 10/22/16 14:50 Urine Color Yellow (Yellow) 10/15/16 11:05 Urine Turbidity Cloudy (Clear) 10/15/16 11:05 Urine pH 5.0 (5.0-7.0) 10/15/16 11:05 Ur Specific [place] 1.009 (1.003-1.030) 10/15/16 11:05 Urine Protein 30 mg/dl mg/dL (Negative) 10/15/16 11:05 Urine Glucose (UA) 150 mg/dL (Negative) 10/15/16 11:05 Urine Ketones Neg mg/dL (Negative) 10/15/16 11:05 Urine Blood Lg (Negative) 10/15/16 11:05 Urine Nitrite Neg (Negative) 10/15/16 11:05 Urine Bilirubin Neg (Negative) 10/15/16 11:05 Urine Urobilinogen < 2.0 mg/dL (<2.0) 10/15/16 11:05 Ur Leukocyte Esterase Neg (Negative) 10/15/16 11:05 Urine WBC (Auto) 7.0 /HPF (0.0-6.0) H 10/15/16 11:05 Urine RBC (Auto) 7.0 /HPF (0.0-6.0) 10/15/16 11:05 U Epithel Cells (Auto) 1.0 /HPF (0-13.0) 10/15/16 11:05 Urine Mucus Few /HPF 10/15/16 11:05 Urine Yeast (Budding) 2+ /HPF 10/15/16 11:05 Urine Osmolality 487 Mosm/kg 10/13/16 Unknown Urine Creatinine < 4.2 mg/dL (0.1-20.0) 10/13/16 Unknown Protein/Creatinin Ratio 0.00 10/13/16 Unknown Urine Sodium 10 mEq/L 10/13/16 Unknown Urine Potassium 1.00 mEq/L 10/13/16 Unknown Urine Chloride 10.0 mEq/L (110-250) L 10/13/16 Unknown Urine Total Protein < 4 mg/dL (5-11.8) L 10/13/16 Unknown Vancomycin Trough 17.7 ug/mL (5.0-20.0) 10/22/16 10:25 Ketones 107.3 mg/dL (0.2-2.8) H 10/13/16 04:22 Blood Type A POSITIVE 11/03/16 18:01 Antibody Screen Negative 11/03/16 18:01 Crossmatch See Detail 11/03/16 18:01
[2016-11-06] MEDS: VANCOMYCIN VIAL 1,500 MG in NACL 0.9% 500 ML 500 ML IV SCH ×2 (11:54→22:30)
[2016-11-06] MEDS: KCL 20MEQ/100ML 20 MEQ/100 ML BAG IV SCH ×2 (11:54→13:31)
[2016-11-06] MEDS: REGLAN IV SCH ×2 (13:32→17:44)
--- NOTE | 2016-11-06 21:03 | Progress Note ---
Subjective Date of service: 11/06/16 Principal diagnosis: respiratory failure on mechanical ventilatory support, DKA Interval history: AWAKE. FEVER. S/P surgery. Fever resolving. Vital signs - Temp 100.3 CHEST - GOOD AIR ENTRY CVS - S1S2 ABD - BS_ LABS See lab section. ASSESSMENT 1. Sepsis 2. dka 3. resp failure 4. htn 5. clostridium difficile colitis 6. bilateral pneumonia 6. RIGHT LEG GANGRENE s/p amputation RECOMMENDATION 1. cbc/bmp in am 2. CONTINUE IV ABX Objective - Constitutional Vitals: Vital Signs Temp Pulse Resp BP Pulse Ox 98.8 F 90 20 131/68 98 11/06/16 20:00 11/06/16 20:00 11/06/16 20:00 11/06/16 20:00 11/06/16 20:00 Temperature -Last 24 Hours Temperature 98.8 F Temperature 98.8 F Temperature 99.2 F Temperature 98.7 F Temperature 98.6 F Temperature 99.0 F Temperature 100.3 F Temperature 101.8 F - Labs CBC & Chem 7: 11/06/16 05:00 11/06/16 05:00 Labs: Abnormal lab results 11/05/16 11/05/16 11/06/16 Range/Units 21:07 23:30 05:00 WBC (4.5-11.0) K/mm3 RBC (3.65-5.03) M/mm3 Hgb (10.1-14.3) gm/dl RDW (13.2-15.2) % Heparin Anti-Xa Level < 0.10 L 0.94 H (0.3-0.7) U.I./ml Potassium (3.6-5.0) mmol/L Chloride (98-107) mmol/L Carbon Dioxide (22-30) mmol/L BUN (7-17) mg/dL Creatinine (0.7-1.2) mg/dL Glucose (65-100) mg/dL POC Glucose 131 H (70-105) Calcium (8.4-10.2) mg/dL 11/06/16 11/06/16 11/06/16 Range/Units 05:00 05:00 11:45 WBC 15.2 H (4.5-11.0) K/mm3 RBC 3.29 L (3.65-5.03) M/mm3 Hgb 10.0 L (10.1-14.3) gm/dl RDW 16.9 H (13.2-15.2) % Heparin Anti-Xa Level (0.3-0.7) U.I./ml Potassium 3.5 L (3.6-5.0) mmol/L Chloride 107.1 H (98-107) mmol/L Carbon Dioxide 20 L (22-30) mmol/L BUN 4 L (7-17) mg/dL Creatinine 0.6 L (0.7-1.2) mg/dL Glucose 104 H (65-100) mg/dL POC Glucose 141 H (70-105) Calcium 6.7 L (8.4-10.2) mg/dL 11/06/16 Range/Units 18:23 WBC (4.5-11.0) K/mm3 RBC (3.65-5.03) M/mm3 Hgb (10.1-14.3) gm/dl RDW (13.2-15.2) % Heparin Anti-Xa Level (0.3-0.7) U.I./ml Potassium (3.6-5.0) mmol/L Chloride (98-107) mmol/L Carbon Dioxide (22-30) mmol/L BUN (7-17) mg/dL Creatinine (0.7-1.2) mg/dL Glucose (65-100) mg/dL POC Glucose 255 H (70-105) Calcium (8.4-10.2) mg/dL
[2016-11-06] MEDS: LEVAQUIN 750MG/150ML 750 MG/150 ML BAG IV SCH (22:30)
[2016-11-07] MEDS: REGLAN IV SCH ×4 (00:30→18:22)
--- NOTE | 2016-11-07 02:00 | Admit Criteria Form ---
Admission Criteria Documentation: AMBULATORY SURGERY EXCEPTION CRITERIA Ambulatory Surgery Exception Criteria ( Place 'X' for any and all applicable criteria): Surgery or procedure performed on ambulatory basis may require inpatient stay for[A] ANY ONE of the following(1)(2)(3)(4)(5)(6)(7)(8)(9): [X] I. A preoperative situation, condition, or finding that warrants inpatient stay as indicated by ANY ONE of the following: [] a) Inpatient care needed because of severity of a disease or condition rather than the surgery (eg, severe cardiac or respiratory disease, severe infection) (15) (16 ) (17) (18) [] b) Emergent procedure (eg, angioplasty for acute ischemia)(19) [] c) Complex surgical approach or situation as indicated by ANY ONE of the following(3): [] i) Open approach needed instead of usual endoscopic, transcatheter, or other less invasive procedure [] ii) Difficult approach because of previous operation [] iii) Airway monitoring required after open neck procedures(20)(21) [] iv) Large mass requiring unusually extensive dissection [] v) Additional complicating feature requiring inpatient care (eg, drain management)(22(23): [X] d) Major surgery in a pt with high anesthetic risk as indicated by ANY ONE of the following (2)(3)(5)(7)(8): [X] i) ASA risk class III or higher (severe systemic disease impairing function) [D] [] ii) Advanced age (eg, older than 85 years)(14)(24) [] iii) Symptomatic heart failure(25) [] iv) Symptomatic asthma or COPD(8)(21) [] v) Morbid obesity with hemodynamic or respiratory problems(20)( 21)(26)(27) [] vi) Obstructive sleep apnea(20)(21) [] vii) Former premature infants who are younger than 60 weeks [] viii) High risk for severe postoperative abnormalities (eg, severe postoperative hypocalcemia after parathyroidectomy for severe hyperparathyroidism)(27)( 28) [] ix) Unstable angina(25) [] e) Drug-related risk requiring inpatient stay as indicated by ANY ONE of the following(5)(10)(14)(32)(33) [] i) Procedure requires discontinuing drugs or other therapy (eg , antiarrhythmic medication, antiseizure medication), which necessitates inpatient observation or treatment.(18)(31) [] ii) Major surgery and high risk drug use as indicated by ANY ONE of the following: [] 1) Active abuse of cocaine or similar drug [] 2) Monoamine oxidase inhibitor use [] 3) Other drug identified as posing risk [] f) Inadequate outpatient care situation as indicated by ANY ONE of the following(5)(10)(14)(32)(33) [] i) Patient lives remote from medical facility and procedure has urgent complication potential, and temporary nearby residence cannot be arranged [] ii) Patient will have postprocedure incapacitation and inadequate assistance at home, or alternative level of care cannot be arranged. [] iii) Patient will have long general anesthesia or procedure side effect resolution time, and competent person to stay with patient on first postoperative night at home or alternative level of care cannot be arranged. []iv) Other inadequate outpatient situation that cannot be handled by other means [] II. A perioperative event, condition, or finding that warrants inpatient stay as indicated by ANY ONE of the following (1)(2)(3): [] a) Inadequate physiologic recovery: cardiovascular, respiratory, or hemodynamic status not normal or near preoperative baseline(18) [] b) Hemodynamic instability [] c) Patient not alert with near normal or baseline mental status [] d) Temperature not normal or as expected and not appropriate for outpatient treatment of condition [] e) Ambulatory or appropriate activity level status not yet achieved post procedure [E](34)(35)(36) [] f) Operative site not appropriate (eg, unexpected or excessive drainage or bleeding) [] g) Postoperative effects not resolved or adequately managed (eg, significant pain or vomiting not appropriate for outpatient or next level of care)(10)(12) [] h) Complicating features requiring inpatient care as indicated by ANY ONE of the following(37): [] i) Severe complications of procedure (eg, bowel injury, airway compromise, vascular injury,severe hemorrhage) [] ii) Extensive (eg, dissection far beyond usual scope of procedure ) or prolonged (eg, 120 minutes beyond usual) surgery needed requiring inpatient postoperative care [] iii) Conversion to an open or complex procedure that requires inpatient care (eg, open vs laparoscopic cholecystectomy, abdominal vs vaginal hysterectomy)(38) [] iv) Comorbid condition or test result identified during or post procedure that requires inpatient care (7) [] v) Malignant hyperthermia(30) [] vi) Other complicating feature requiring inpatient care(22)(23) Inpatient stay may be needed until ALL of the following are present (1)(2)(3)(4) (5)(6)(10)(14)(33)(40): []a) Physiologic recovery: cardiovascular, respiratory, and hemodynamic status normal or near preoperative baseline []b) Hemodynamic stability []c) Patient alert, with near normal or baseline mental status []d) Temperature appropriate: patient afebrile or temperature appropriate for outpt treatment of condition []e) Activity level appropriate: ambulatory or appropriate activity level post procedure []f) Operative site appropriate as indicated by ALL of the following: []i) Site dry or with expected drainage []ii) Any blood noted is as expected for procedure. []g) Postoperative effects resolved or managed as indicated by ALL of the following: []i) Pain management appropriate for outpatient (or next level of) care(10) []ii) Minimal nausea and vomiting: if present, successfully treated with oral medication(12) []iii) Headache, dizziness, or drowsiness (if present) are mild. []h) Voiding status acceptable as indicated by ANY ONE of the following: []i) Voiding spontaneously []ii) No voiding but instructions given for follow-up in 6 to 8 hours []iii) Urinary catheter in place, and instructions given for follow-up []i) Complicating features requiring inpatient care manageable at a lower level of care(37) []j) Comorbid conditions manageable at a lower level of care(37) The original [employer] content created by [employer] has been revised. The portions of the content which have been revised are identified through the use of italic text or in bold, and [facility] has neither reviewed nor approved the modified material. All other unmodified content is copyright [employer]. Please see references footnoted in the original [employer] edition 2016 Admission Criteria Met: Yes
[2016-11-07] MEDS: CLEOCIN 600 MG/50 mL 600 MG/50 ML BAG IV SCH ×3 (06:14→21:15)
[2016-11-07] MEDS: LOPRESSOR FEEDTUBE SCH ×3 (06:27→21:17)
[2016-11-07] MEDS: fentaNYL DRIP Premix 2,000 MCG/100 ML BAG IV SCH ×3 (08:19→21:15)
[2016-11-07] MEDS ORDERED: SODIUM BICARBONATE FEEDTUBE PRN (08:52)
[2016-11-07] MEDS ORDERED: PANCREAZE DR 10,500 UNIT FEEDTUBE PRN (08:52)
[2016-11-07] MEDS ORDERED: SIMPLE SYRUP FEEDTUBE PRN ×2 (08:52)
[2016-11-07 08:55] LABS: Hematocrit 27.9 % (30.3-42.9); Hemoglobin 9.1 gm/dl (10.1-14.3); Mean Corpuscular HGB Conc 33 % (30-34); Mean Corpuscular Hemoglobin 31 pg (28-32); Mean Corpuscular Volume 94 fl (79-97); Platelet Count 272 K/mm3 (140-440); Red Blood Count 2.96 M/mm3 (3.65-5.03); Red Cell Distribution Width 16.8 % (13.2-15.2); White Blood Count 12.3 K/mm3 (4.5-11.0)
[2016-11-07 08:59] LABS: Anion Gap 17 mmol/L; BUN/Creatinine Ratio 11.42; Blood Urea Nitrogen 8 mg/dL (7-17); Calcium 6.9 mg/dL (8.4-10.2); Carbon Dioxide 19 mmol/L (22-30); Glucose 106 mg/dL (65-100); Potassium 4.2 mmol/L (3.6-5.0); Sodium 138 mmol/L (137-145)
[2016-11-07] MEDS: PEPCID PO SCH ×2 (09:24→21:17)
[2016-11-07] MEDS: VANCOMYCIN VIAL 1,500 MG in NACL 0.9% 500 ML 500 ML IV SCH ×2 (09:24→21:17)
[2016-11-07 09:48] LABS: Basophils % (Manual) 0 % (0.0-1.8); Blastocytes % (Manual) 0 %
[2016-11-07 09:49] LABS: Diff Status Complete; Polychromasia 1+
--- NOTE | 2016-11-07 10:30 | Progress Note ---
Assessment and Plan - Patient Problems (1) Acute respiratory failure with hypercapnia Current Visit: Yes Status: Acute Plan to address problem: - continue aspiration precautions / VAP bundles - continue bronchodilators and pulmonary toilet - wean oxygen to keep sats > 94% - reduce sedation and allow spontaneous breaths - PSV trials once over-breathing and maintaining adequate minute ventilation (2) Altered mental status Current Visit: Yes Status: Acute Qualifiers: Altered mental status type: A Coma depth: C Coma timing: C Plan to address problem: - no active seizures - following clinically - seen by neurology and will follow their recommendations - no seizures on EEG - more appropriate clinically (3) LUCY (acute kidney injury) Current Visit: Yes Status: Acute Plan to address problem: - resolved - follow I's & O's (4) DKA (diabetic ketoacidoses) Current Visit: Yes Status: Acute Qualifiers: Diabetes mellitus type: D Diabetes mellitus complication detail: D Plan to address problem: - resolved - continue SSI (5) Sepsis Current Visit: No Status: Acute Qualifiers: Sepsis type: S Plan to address problem: - continue anti-infectives per ID recs - follow clinically - trend lactate and CRP prn - hopefully improves post amputation (6) Discharge planning issues Current Visit: No Status: Acute Plan to address problem: ...hopefully can begin weaning in am ...remains critically ill on life sustaining treatments including MVS and at high risk for further deterioration including ...30' CCT Subjective Date of service: 11/07/16 Principal diagnosis: respiratory failure on mechanical ventilatory support, DKA Interval history: Seen and examined at bedside; 24 hour events reviewed; nursing and respiratory care staff consulted; no adverse overnight events reported to me; remains on MVS and riding set rate on MVS; no N/V/F/C; remains sedated Objective Vital Signs - 12hr 11/06/16 11/06/16 11/07/16 22:32 23:00 00:00 Temperature 98.9 F Pulse Rate 85 84 85 Pulse Rate [ From Monitor] Respiratory 16 16 Rate Blood Pressure 120/61 120/61 118/63 O2 Sat by Pulse 96 Oximetry O2 Sat by Pulse Oximetry [ Assessment] 11/07/16 11/07/16 11/07/16 00:49 01:00 02:00 Temperature Pulse Rate 91 H 81 81 Pulse Rate [ From Monitor] Respiratory 17 18 Rate Blood Pressure 129/83 116/59 116/59 O2 Sat by Pulse 98 96 94 Oximetry O2 Sat by Pulse Oximetry [ Assessment] 11/07/16 11/07/16 11/07/16 03:00 04:00 04:55 Temperature 98.6 F Pulse Rate 82 82 Pulse Rate [ 88 From Monitor] Respiratory 16 18 Rate Blood Pressure 115/58 117/57 O2 Sat by Pulse 95 96 Oximetry O2 Sat by Pulse 100 Oximetry [ Assessment] 11/07/16 11/07/16 11/07/16 05:00 06:00 06:27 Temperature Pulse Rate 83 89 89 Pulse Rate [ From Monitor] Respiratory 15 17 Rate Blood Pressure 115/57 131/64 127/63 O2 Sat by Pulse 97 98 Oximetry O2 Sat by Pulse Oximetry [ Assessment] 11/07/16 11/07/16 07:00 08:00 Temperature 98.4 F Pulse Rate 88 Pulse Rate [ From Monitor] Respiratory 17 Rate Blood Pressure 125/62 O2 Sat by Pulse 96 Oximetry O2 Sat by Pulse Oximetry [ Assessment] Constitutional: no acute distress, other (? delirium / dementia element) Eyes: non-icteric ENT: oropharynx moist Neck: supple, no lymphadenopathy Effort: mildly labored Ascultation: Bilateral: diminished breath sounds, rales Cardiovascular: regular rate and rhythm, other (tachycardia) Gastrointestinal: normoactive bowel sounds, soft, non-tender, non-distended Integumentary: normal Extremities: no cyanosis, no edema, no ischemia or petechiae, other (cold right foot with digital ischemia) Neurologic: non-focal exam (grossly), pupils equal and round, unable to assess Psychiatric: other (sedated) CBC and BMP: 11/08/16 05:20 11/08/16 05:20 ABG, PT/INR, D-dimer: ABG POC ABG pH 7.394 (7.35-7.45) 11/04/16 12:58 POC ABG pCO2 33.7 (35-45) L 11/04/16 12:58 POC ABG pO2 60 (80-105) L 11/04/16 12:58 POC ABG HCO3 20.6 11/04/16 12:58 POC ABG Total CO2 22 11/04/16 12:58 POC ABG O2 Sat 91 11/04/16 12:58 PT/INR, D-dimer PT 16.4 Sec. (12.2-14.9) H 10/17/16 16:07 INR 1.33 (0.87-1.13) H 10/17/16 16:07 Abnormal lab findings: Abnormal Labs 10/13/16 10/13/16 10/13/16 06:38 06:38 07:23 WBC RBC Hgb Hct MCV RDW Plt Count Lymph % (Auto) [place] % (Auto) [place] # Seg Neutrophils % Seg Neuts % (Manual) Lymphocytes % (Manual) Monocytes % (Manual) Nucleated RBC % Seg Neutrophils # Seg Neutrophils # Man Lymphocytes # (Manual) Monocytes # (Manual) Eosinophils # (Manual) Basophils # (Manual) PT INR APTT Heparin Anti-Xa Level POC ABG pH POC ABG pCO2 POC ABG pO2 Sodium Potassium 6.2 H* Chloride Carbon Dioxide 8 L* BUN 85 H Creatinine 2.8 H Glucose 602 H* POC Glucose 495 H Calcium 7.9 L Phosphorus 6.9 H D Magnesium 3.0 H AST Alkaline Phosphatase C-Reactive Protein Total Protein Albumin Lipase Vitamin B12 TSH Urine WBC (Auto) Urine Chloride Urine Total Protein Crossmatch 10/13/16 10/13/16 10/13/16 08:49 08:55 10:12 WBC RBC Hgb Hct MCV RDW Plt Count Lymph % (Auto) [place] % (Auto) [place] # Seg Neutrophils % Seg Neuts % (Manual) Lymphocytes % (Manual) Monocytes % (Manual) Nucleated RBC % Seg Neutrophils # Seg Neutrophils # Man Lymphocytes # (Manual) Monocytes # (Manual) Eosinophils # (Manual) Basophils # (Manual) PT INR APTT Heparin Anti-Xa Level POC ABG pH POC ABG pCO2 POC ABG pO2 Sodium Potassium 5.6 H Chloride Carbon Dioxide 11 L BUN 77 H Creatinine 2.7 H Glucose 457 H POC Glucose > 500 H 424 H Calcium 8.0 L Phosphorus Magnesium AST Alkaline Phosphatase C-Reactive Protein Total Protein Albumin Lipase Vitamin B12 TSH Urine WBC (Auto) Urine Chloride Urine Total Protein Crossmatch 10/13/16 10/13/16 10/13/16 10:44 11:22 12:20 WBC RBC Hgb Hct MCV RDW Plt Count Lymph % (Auto) [place] % (Auto) [place] # Seg Neutrophils % Seg Neuts % (Manual) Lymphocytes % (Manual) Monocytes % (Manual) Nucleated RBC % Seg Neutrophils # Seg Neutrophils # Man Lymphocytes # (Manual) Monocytes # (Manual) Eosinophils # (Manual) Basophils # (Manual) PT INR APTT Heparin Anti-Xa Level POC ABG pH POC ABG pCO2 POC ABG pO2 Sodium Potassium 5.4 H Chloride Carbon Dioxide 14 L BUN 72 H Creatinine 2.6 H Glucose 383 H POC Glucose 391 H 313 H Calcium 8.2 L Phosphorus Magnesium AST Alkaline Phosphatase C-Reactive Protein Total Protein Albumin Lipase Vitamin B12 TSH Urine WBC (Auto) Urine Chloride Urine Total Protein Crossmatch 10/13/16 10/13/16 10/13/16 13:32 14:44 15:57 WBC RBC Hgb Hct MCV RDW Plt Count Lymph % (Auto) [place] % (Auto) [place] # Seg Neutrophils % Seg Neuts % (Manual) Lymphocytes % (Manual) Monocytes % (Manual) Nucleated RBC % Seg Neutrophils # Seg Neutrophils # Man Lymphocytes # (Manual) Monocytes # (Manual) Eosinophils # (Manual) Basophils # (Manual) PT INR APTT Heparin Anti-Xa Level POC ABG pH POC ABG pCO2 POC ABG pO2 Sodium Potassium Chloride Carbon Dioxide BUN Creatinine Glucose POC Glucose 296 H 210 H 190 H Calcium Phosphorus Magnesium AST Alkaline Phosphatase C-Reactive Protein Total Protein Albumin Lipase Vitamin B12 TSH Urine WBC (Auto) Urine Chloride Urine Total Protein Crossmatch 10/13/16 10/13/16 10/13/16 16:14 16:14 17:17 WBC RBC Hgb Hct MCV RDW Plt Count Lymph % (Auto) [place] % (Auto) [place] # Seg Neutrophils % Seg Neuts % (Manual) Lymphocytes % (Manual) Monocytes % (Manual) Nucleated RBC % Seg Neutrophils # Seg Neutrophils # Man Lymphocytes # (Manual) Monocytes # (Manual) Eosinophils # (Manual) Basophils # (Manual) PT INR APTT Heparin Anti-Xa Level POC ABG pH POC ABG pCO2 POC ABG pO2 Sodium Potassium Chloride Carbon Dioxide 17 L BUN 58 H Creatinine 1.8 H Glucose 172 H POC Glucose 193 H Calcium 7.7 L Phosphorus Magnesium AST Alkaline Phosphatase C-Reactive Protein 10.50 H Total Protein Albumin Lipase Vitamin B12 TSH Urine WBC (Auto) Urine Chloride Urine Total Protein Crossmatch 10/13/16 10/13/16 10/13/16 17:55 18:32 19:41 WBC RBC Hgb Hct MCV RDW Plt Count Lymph % (Auto) [place] % (Auto) [place] # Seg Neutrophils % Seg Neuts % (Manual) Lymphocytes % (Manual) Monocytes % (Manual) Nucleated RBC % Seg Neutrophils # Seg Neutrophils # Man Lymphocytes # (Manual) Monocytes # (Manual) Eosinophils # (Manual) Basophils # (Manual) PT INR APTT Heparin Anti-Xa Level POC ABG pH POC ABG pCO2 30.6 L POC ABG pO2 218 H Sodium Potassium Chloride Carbon Dioxide BUN Creatinine Glucose POC Glucose 192 H 177 H Calcium Phosphorus Magnesium AST Alkaline Phosphatase C-Reactive Protein Total Protein Albumin Lipase Vitamin B12 TSH Urine WBC (Auto) Urine Chloride Urine Total Protein Crossmatch 10/13/16 10/13/16 10/13/16 20:54 22:07 23:13 WBC RBC Hgb Hct MCV RDW Plt Count Lymph % (Auto) [place] % (Auto) [place] # Seg Neutrophils % Seg Neuts % (Manual) Lymphocytes % (Manual) Monocytes % (Manual) Nucleated RBC % Seg Neutrophils # Seg Neutrophils # Man Lymphocytes # (Manual) Monocytes # (Manual) Eosinophils # (Manual) Basophils # (Manual) PT INR APTT Heparin Anti-Xa Level POC ABG pH POC ABG pCO2 POC ABG pO2 Sodium Potassium Chloride Carbon Dioxide BUN Creatinine Glucose POC Glucose 178 H 160 H 168 H Calcium Phosphorus Magnesium AST Alkaline Phosphatase C-Reactive Protein Total Protein Albumin Lipase Vitamin B12 TSH Urine WBC (Auto) Urine Chloride Urine Total Protein Crossmatch 10/13/16 10/13/16 10/14/16 23:25 Unknown 00:21 WBC RBC Hgb Hct MCV RDW Plt Count Lymph % (Auto) [place] % (Auto) [place] # Seg Neutrophils % Seg Neuts % (Manual) Lymphocytes % (Manual) Monocytes % (Manual) Nucleated RBC % Seg Neutrophils # Seg Neutrophils # Man Lymphocytes # (Manual) Monocytes # (Manual) Eosinophils # (Manual) Basophils # (Manual) PT INR APTT Heparin Anti-Xa Level POC ABG pH POC ABG pCO2 POC ABG pO2 Sodium 148 H Potassium Chloride 114.6 H Carbon Dioxide 17 L BUN 56 H Creatinine 1.6 H Glucose 151 H POC Glucose 171 H Calcium 7.8 L Phosphorus Magnesium AST Alkaline Phosphatase C-Reactive Protein Total Protein Albumin Lipase Vitamin B12 TSH Urine WBC (Auto) Urine Chloride 10.0 L Urine Total Protein < 4 L Crossmatch 10/14/16 10/14/16 10/14/16 01:22 02:29 03:30 WBC RBC Hgb Hct MCV RDW Plt Count Lymph % (Auto) [place] % (Auto) [place] # Seg Neutrophils % Seg Neuts % (Manual) Lymphocytes % (Manual) Monocytes % (Manual) Nucleated RBC % Seg Neutrophils # Seg Neutrophils # Man Lymphocytes # (Manual) Monocytes # (Manual) Eosinophils # (Manual) Basophils # (Manual) PT INR APTT Heparin Anti-Xa Level POC ABG pH POC ABG pCO2 POC ABG pO2 Sodium Potassium Chloride Carbon Dioxide BUN Creatinine Glucose POC Glucose 144 H 136 H 143 H Calcium Phosphorus Magnesium AST Alkaline Phosphatase C-Reactive Protein Total Protein Albumin Lipase Vitamin B12 TSH Urine WBC (Auto) Urine Chloride Urine Total Protein Crossmatch 10/14/16 10/14/16 10/14/16 04:28 05:16 05:44 WBC RBC Hgb Hct MCV RDW Plt Count Lymph % (Auto) [place] % (Auto) [place] # Seg Neutrophils % Seg Neuts % (Manual) Lymphocytes % (Manual) Monocytes % (Manual) Nucleated RBC % Seg Neutrophils # Seg Neutrophils # Man Lymphocytes # (Manual) Monocytes # (Manual) Eosinophils # (Manual) Basophils # (Manual) PT INR APTT Heparin Anti-Xa Level POC ABG pH POC ABG pCO2 28.2 L POC ABG pO2 125 H Sodium Potassium Chloride Carbon Dioxide BUN Creatinine Glucose POC Glucose 133 H 160 H Calcium Phosphorus Magnesium AST Alkaline Phosphatase C-Reactive Protein Total Protein Albumin Lipase Vitamin B12 TSH Urine WBC (Auto) Urine Chloride Urine Total Protein Crossmatch 10/14/16 10/14/16 10/14/16 06:12 06:45 07:03 WBC RBC Hgb Hct MCV RDW Plt Count Lymph % (Auto) [place] % (Auto) [place] # Seg Neutrophils % Seg Neuts % (Manual) Lymphocytes % (Manual) Monocytes % (Manual) Nucleated RBC % Seg Neutrophils # Seg Neutrophils # Man Lymphocytes # (Manual) Monocytes # (Manual) Eosinophils # (Manual) Basophils # (Manual) PT INR APTT Heparin Anti-Xa Level POC ABG pH POC ABG pCO2 POC ABG pO2 Sodium 149 H Potassium Chloride 115.4 H Carbon Dioxide 17 L BUN 45 H Creatinine 1.5 H Glucose 139 H POC Glucose 149 H Calcium 7.4 L Phosphorus 1.0 L D Magnesium AST Alkaline Phosphatase C-Reactive Protein Total Protein Albumin Lipase Vitamin B12 TSH Urine WBC (Auto) Urine Chloride Urine Total Protein Crossmatch 10/14/16 10/14/16 10/14/16 07:03 08:02 09:16 WBC RBC Hgb Hct MCV RDW Plt Count Lymph % (Auto) [place] % (Auto) [place] # Seg Neutrophils % Seg Neuts % (Manual) Lymphocytes % (Manual) Monocytes % (Manual) Nucleated RBC % Seg Neutrophils # Seg Neutrophils # Man Lymphocytes # (Manual) Monocytes # (Manual) Eosinophils # (Manual) Basophils # (Manual) PT INR APTT Heparin Anti-Xa Level POC ABG pH POC ABG pCO2 POC ABG pO2 Sodium Potassium Chloride Carbon Dioxide BUN Creatinine Glucose POC Glucose 156 H 158 H Calcium Phosphorus Magnesium AST Alkaline Phosphatase C-Reactive Protein Total Protein Albumin Lipase 738 H Vitamin B12 TSH Urine WBC (Auto) Urine Chloride Urine Total Protein Crossmatch 10/14/16 10/14/16 10/14/16 10:26 11:03 11:57 WBC RBC Hgb Hct MCV RDW Plt Count Lymph % (Auto) [place] % (Auto) [place] # Seg Neutrophils % Seg Neuts % (Manual) Lymphocytes % (Manual) Monocytes % (Manual) Nucleated RBC % Seg Neutrophils # Seg Neutrophils # Man Lymphocytes # (Manual) Monocytes # (Manual) Eosinophils # (Manual) Basophils # (Manual) PT INR APTT Heparin Anti-Xa Level POC ABG pH 7.198 L POC ABG pCO2 47.5 H POC ABG pO2 Sodium Potassium Chloride Carbon Dioxide BUN Creatinine Glucose POC Glucose 174 H 189 H Calcium Phosphorus Magnesium AST Alkaline Phosphatase C-Reactive Protein Total Protein Albumin Lipase Vitamin B12 TSH Urine WBC (Auto) Urine Chloride Urine Total Protein Crossmatch 10/14/16 10/14/16 10/14/16 12:02 12:02 13:11 WBC 13.4 H RBC 3.60 L Hgb Hct MCV 98 H D RDW 13.1 L Plt Count Lymph % (Auto) [place] % (Auto) [place] # Seg Neutrophils % Seg Neuts % (Manual) Lymphocytes % (Manual) Monocytes % (Manual) Nucleated RBC % Seg Neutrophils # Seg Neutrophils # Man Lymphocytes # (Manual) Monocytes # (Manual) Eosinophils # (Manual) Basophils # (Manual) PT INR APTT Heparin Anti-Xa Level POC ABG pH POC ABG pCO2 POC ABG pO2 Sodium Potassium Chloride 110.7 H Carbon Dioxide 19 L BUN 38 H Creatinine 1.4 H Glucose 182 H POC Glucose 173 H Calcium 7.5 L Phosphorus Magnesium AST Alkaline Phosphatase C-Reactive Protein Total Protein Albumin Lipase Vitamin B12 TSH Urine WBC (Auto) Urine Chloride Urine Total Protein Crossmatch 10/14/16 10/14/16 10/14/16 14:24 15:31 16:36 WBC RBC Hgb Hct MCV RDW Plt Count Lymph % (Auto) [place] % (Auto) [place] # Seg Neutrophils % Seg Neuts % (Manual) Lymphocytes % (Manual) Monocytes % (Manual) Nucleated RBC % Seg Neutrophils # Seg Neutrophils # Man Lymphocytes # (Manual) Monocytes # (Manual) Eosinophils # (Manual) Basophils # (Manual) PT INR APTT Heparin Anti-Xa Level POC ABG pH POC ABG pCO2 POC ABG pO2 Sodium Potassium Chloride Carbon Dioxide BUN Creatinine Glucose POC Glucose 123 H 124 H 156 H Calcium Phosphorus Magnesium AST Alkaline Phosphatase C-Reactive Protein Total Protein Albumin Lipase Vitamin B12 TSH Urine WBC (Auto) Urine Chloride Urine Total Protein Crossmatch 10/14/16 10/14/16 10/14/16 17:43 19:00 20:08 WBC RBC Hgb Hct MCV RDW Plt Count Lymph % (Auto) [place] % (Auto) [place] # Seg Neutrophils % Seg Neuts % (Manual) Lymphocytes % (Manual) Monocytes % (Manual) Nucleated RBC % Seg Neutrophils # Seg Neutrophils # Man Lymphocytes # (Manual) Monocytes # (Manual) Eosinophils # (Manual) Basophils # (Manual) PT INR APTT Heparin Anti-Xa Level POC ABG pH POC ABG pCO2 POC ABG pO2 Sodium Potassium Chloride Carbon Dioxide BUN Creatinine Glucose POC Glucose 154 H 123 H 138 H Calcium Phosphorus Magnesium AST Alkaline Phosphatase C-Reactive Protein Total Protein Albumin Lipase Vitamin B12 TSH Urine WBC (Auto) Urine Chloride Urine Total Protein Crossmatch 10/14/16 10/14/16 10/14/16 21:17 22:25 23:37 WBC RBC Hgb Hct MCV RDW Plt Count Lymph % (Auto) [place] % (Auto) [place] # Seg Neutrophils % Seg Neuts % (Manual) Lymphocytes % (Manual) Monocytes % (Manual) Nucleated RBC % Seg Neutrophils # Seg Neutrophils # Man Lymphocytes # (Manual) Monocytes # (Manual) Eosinophils # (Manual) Basophils # (Manual) PT INR APTT Heparin Anti-Xa Level POC ABG pH POC ABG pCO2 POC ABG pO2 Sodium Potassium Chloride Carbon Dioxide BUN Creatinine Glucose POC Glucose 148 H 132 H 137 H Calcium Phosphorus Magnesium AST Alkaline Phosphatase C-Reactive Protein Total Protein Albumin Lipase Vitamin B12 TSH Urine WBC (Auto) Urine Chloride Urine Total Protein Crossmatch 10/15/16 10/15/16 10/15/16 00:49 01:53 03:06 WBC RBC Hgb Hct MCV RDW Plt Count Lymph % (Auto) [place] % (Auto) [place] # Seg Neutrophils % Seg Neuts % (Manual) Lymphocytes % (Manual) Monocytes % (Manual) Nucleated RBC % Seg Neutrophils # Seg Neutrophils # Man Lymphocytes # (Manual) Monocytes # (Manual) Eosinophils # (Manual) Basophils # (Manual) PT INR APTT Heparin Anti-Xa Level POC ABG pH POC ABG pCO2 POC ABG pO2 Sodium Potassium Chloride Carbon Dioxide BUN Creatinine Glucose POC Glucose 132 H 134 H 134 H Calcium Phosphorus Magnesium AST Alkaline Phosphatase C-Reactive Protein Total Protein Albumin Lipase Vitamin B12 TSH Urine WBC (Auto) Urine Chloride Urine Total Protein Crossmatch 10/15/16 10/15/16 10/15/16 04:40 04:46 06:21 WBC RBC Hgb Hct MCV RDW Plt Count Lymph % (Auto) [place] % (Auto) [place] # Seg Neutrophils % Seg Neuts % (Manual) Lymphocytes % (Manual) Monocytes % (Manual) Nucleated RBC % Seg Neutrophils # Seg Neutrophils # Man Lymphocytes # (Manual) Monocytes # (Manual) Eosinophils # (Manual) Basophils # (Manual) PT INR APTT Heparin Anti-Xa Level POC ABG pH POC ABG pCO2 30.7 L POC ABG pO2 108 H Sodium Potassium Chloride 109.0 H Carbon Dioxide 17 L BUN 27 H Creatinine Glucose 124 H POC Glucose 160 H Calcium 7.5 L Phosphorus Magnesium AST 79 H Alkaline Phosphatase C-Reactive Protein Total Protein 5.5 L Albumin 3.0 L Lipase Vitamin B12 TSH Urine WBC (Auto) Urine Chloride Urine Total Protein Crossmatch 10/15/16 10/15/16 10/15/16 07:12 08:01 09:03 WBC RBC Hgb Hct MCV RDW Plt Count Lymph % (Auto) [place] % (Auto) [place] # Seg Neutrophils % Seg Neuts % (Manual) Lymphocytes % (Manual) Monocytes % (Manual) Nucleated RBC % Seg Neutrophils # Seg Neutrophils # Man Lymphocytes # (Manual) Monocytes # (Manual) Eosinophils # (Manual) Basophils # (Manual) PT INR APTT Heparin Anti-Xa Level POC ABG pH POC ABG pCO2 POC ABG pO2 Sodium Potassium Chloride Carbon Dioxide BUN Creatinine Glucose POC Glucose 179 H 187 H 165 H Calcium Phosphorus Magnesium AST Alkaline Phosphatase C-Reactive Protein Total Protein Albumin Lipase Vitamin B12 TSH Urine WBC (Auto) Urine Chloride Urine Total Protein Crossmatch 10/15/16 10/15/16 10/15/16 10:06 10:06 10:07 WBC 12.1 H RBC 3.01 L Hgb 9.7 L Hct 29.6 L MCV 98 H RDW Plt Count 129 L Lymph % (Auto) [place] % (Auto) [place] # Seg Neutrophils % Seg Neuts % (Manual) Lymphocytes % (Manual) Monocytes % (Manual) Nucleated RBC % Seg Neutrophils # Seg Neutrophils # Man Lymphocytes # (Manual) Monocytes # (Manual) Eosinophils # (Manual) Basophils # (Manual) PT INR APTT Heparin Anti-Xa Level POC ABG pH POC ABG pCO2 POC ABG pO2 Sodium Potassium 3.2 L D Chloride 109.6 H Carbon Dioxide 18 L BUN 22 H Creatinine Glucose 127 H POC Glucose 147 H Calcium 7.0 L Phosphorus Magnesium AST Alkaline Phosphatase C-Reactive Protein Total Protein Albumin Lipase Vitamin B12 TSH Urine WBC (Auto) Urine Chloride Urine Total Protein Crossmatch 10/15/16 10/15/16 10/15/16 11:05 11:06 11:57 WBC RBC Hgb Hct MCV RDW Plt Count Lymph % (Auto) [place] % (Auto) [place] # Seg Neutrophils % Seg Neuts % (Manual) Lymphocytes % (Manual) Monocytes % (Manual) Nucleated RBC % Seg Neutrophils # Seg Neutrophils # Man Lymphocytes # (Manual) Monocytes # (Manual) Eosinophils # (Manual) Basophils # (Manual) PT INR APTT Heparin Anti-Xa Level POC ABG pH 7.305 L POC ABG pCO2 POC ABG pO2 Sodium Potassium Chloride Carbon Dioxide BUN Creatinine Glucose POC Glucose 145 H Calcium Phosphorus Magnesium AST Alkaline Phosphatase C-Reactive Protein Total Protein Albumin Lipase Vitamin B12 TSH Urine WBC (Auto) 7.0 H Urine Chloride Urine Total Protein Crossmatch 10/15/16 10/15/16 10/15/16 12:04 13:59 15:24 WBC RBC Hgb Hct MCV RDW Plt Count Lymph % (Auto) [place] % (Auto) [place] # Seg Neutrophils % Seg Neuts % (Manual) Lymphocytes % (Manual) Monocytes % (Manual) Nucleated RBC % Seg Neutrophils # Seg Neutrophils # Man Lymphocytes # (Manual) Monocytes # (Manual) Eosinophils # (Manual) Basophils # (Manual) PT INR APTT Heparin Anti-Xa Level POC ABG pH POC ABG pCO2 POC ABG pO2 Sodium Potassium Chloride Carbon Dioxide BUN Creatinine Glucose POC Glucose 123 H 147 H 153 H Calcium Phosphorus Magnesium AST Alkaline Phosphatase C-Reactive Protein Total Protein Albumin Lipase Vitamin B12 TSH Urine WBC (Auto) Urine Chloride Urine Total Protein Crossmatch 10/15/16 10/15/16 10/15/16 16:30 17:34 18:30 WBC RBC Hgb Hct MCV RDW Plt Count Lymph % (Auto) [place] % (Auto) [place] # Seg Neutrophils % Seg Neuts % (Manual) Lymphocytes % (Manual) Monocytes % (Manual) Nucleated RBC % Seg Neutrophils # Seg Neutrophils # Man Lymphocytes # (Manual) Monocytes # (Manual) Eosinophils # (Manual) Basophils # (Manual) PT INR APTT Heparin Anti-Xa Level POC ABG pH POC ABG pCO2 POC ABG pO2 Sodium Potassium Chloride Carbon Dioxide BUN Creatinine Glucose POC Glucose 223 H 236 H 164 H Calcium Phosphorus Magnesium AST Alkaline Phosphatase C-Reactive Protein Total Protein Albumin Lipase Vitamin B12 TSH Urine WBC (Auto) Urine Chloride Urine Total Protein Crossmatch 10/15/16 10/15/16 10/15/16 19:14 20:31 21:23 WBC RBC Hgb Hct MCV RDW Plt Count Lymph % (Auto) [place] % (Auto) [place] # Seg Neutrophils % Seg Neuts % (Manual) Lymphocytes % (Manual) Monocytes % (Manual) Nucleated RBC % Seg Neutrophils # Seg Neutrophils # Man Lymphocytes # (Manual) Monocytes # (Manual) Eosinophils # (Manual) Basophils # (Manual) PT INR APTT Heparin Anti-Xa Level POC ABG pH POC ABG pCO2 POC ABG pO2 Sodium Potassium Chloride Carbon Dioxide BUN Creatinine Glucose POC Glucose 138 H 158 H 158 H Calcium Phosphorus Magnesium AST Alkaline Phosphatase C-Reactive Protein Total Protein Albumin Lipase Vitamin B12 TSH Urine WBC (Auto) Urine Chloride Urine Total Protein Crossmatch 10/15/16 10/15/16 10/16/16 22:04 22:57 00:11 WBC RBC Hgb Hct MCV RDW Plt Count Lymph % (Auto) [place] % (Auto) [place] # Seg Neutrophils % Seg Neuts % (Manual) Lymphocytes % (Manual) Monocytes % (Manual) Nucleated RBC % Seg Neutrophils # Seg Neutrophils # Man Lymphocytes # (Manual) Monocytes # (Manual) Eosinophils # (Manual) Basophils # (Manual) PT INR APTT Heparin Anti-Xa Level POC ABG pH POC ABG pCO2 POC ABG pO2 Sodium Potassium Chloride Carbon Dioxide BUN Creatinine Glucose POC Glucose 168 H 213 H 166 H Calcium Phosphorus Magnesium AST Alkaline Phosphatase C-Reactive Protein Total Protein Albumin Lipase Vitamin B12 TSH Urine WBC (Auto) Urine Chloride Urine Total Protein Crossmatch 10/16/16 10/16/16 10/16/16 01:16 02:32 03:38 WBC RBC Hgb Hct MCV RDW Plt Count Lymph % (Auto) [place] % (Auto) [place] # Seg Neutrophils % Seg Neuts % (Manual) Lymphocytes % (Manual) Monocytes % (Manual) Nucleated RBC % Seg Neutrophils # Seg Neutrophils # Man Lymphocytes # (Manual) Monocytes # (Manual) Eosinophils # (Manual) Basophils # (Manual) PT INR APTT Heparin Anti-Xa Level POC ABG pH POC ABG pCO2 POC ABG pO2 Sodium Potassium Chloride Carbon Dioxide BUN Creatinine Glucose POC Glucose 171 H 164 H 147 H Calcium Phosphorus Magnesium AST Alkaline Phosphatase C-Reactive Protein Total Protein Albumin Lipase Vitamin B12 TSH Urine WBC (Auto) Urine Chloride Urine Total Protein Crossmatch 10/16/16 10/16/16 10/16/16 04:14 04:14 04:49 WBC RBC Hgb Hct MCV RDW Plt Count Lymph % (Auto) [place] % (Auto) [place] # Seg Neutrophils % Seg Neuts % (Manual) Lymphocytes % (Manual) Monocytes % (Manual) Nucleated RBC % Seg Neutrophils # Seg Neutrophils # Man Lymphocytes # (Manual) Monocytes # (Manual) Eosinophils # (Manual) Basophils # (Manual) PT INR APTT Heparin Anti-Xa Level POC ABG pH POC ABG pCO2 POC ABG pO2 Sodium 147 H Potassium Chloride 110.9 H Carbon Dioxide 19 L BUN Creatinine Glucose 139 H POC Glucose 144 H Calcium 7.3 L Phosphorus 2.3 L Magnesium AST Alkaline Phosphatase C-Reactive Protein Total Protein Albumin Lipase 143 H Vitamin B12 TSH Urine WBC (Auto) Urine Chloride Urine Total Protein Crossmatch 10/16/16 10/16/16 10/16/16 05:03 05:41 05:58 WBC 16.5 H RBC 3.36 L Hgb Hct MCV 98 H RDW 13.1 L Plt Count Lymph % (Auto) 8.5 L [place] % (Auto) 7.6 H [place] # 1.3 H Seg Neutrophils % 83.3 H Seg Neuts % (Manual) Lymphocytes % (Manual) Monocytes % (Manual) Nucleated RBC % Seg Neutrophils # 13.8 H Seg Neutrophils # Man Lymphocytes # (Manual) Monocytes # (Manual) Eosinophils # (Manual) Basophils # (Manual) PT INR APTT Heparin Anti-Xa Level POC ABG pH POC ABG pCO2 30.7 L POC ABG pO2 128 H Sodium Potassium Chloride Carbon Dioxide BUN Creatinine Glucose POC Glucose 131 H Calcium Phosphorus Magnesium AST Alkaline Phosphatase C-Reactive Protein Total Protein Albumin Lipase Vitamin B12 TSH Urine WBC (Auto) Urine Chloride Urine Total Protein Crossmatch 10/16/16 10/16/16 10/16/16 06:32 09:27 09:35 WBC RBC Hgb Hct MCV RDW Plt Count Lymph % (Auto) [place] % (Auto) [place] # Seg Neutrophils % Seg Neuts % (Manual) Lymphocytes % (Manual) Monocytes % (Manual) Nucleated RBC % Seg Neutrophils # Seg Neutrophils # Man Lymphocytes # (Manual) Monocytes # (Manual) Eosinophils # (Manual) Basophils # (Manual) PT INR APTT Heparin Anti-Xa Level POC ABG pH POC ABG pCO2 32.8 L POC ABG pO2 137 H Sodium Potassium Chloride Carbon Dioxide BUN Creatinine Glucose POC Glucose 121 H 150 H Calcium Phosphorus Magnesium AST Alkaline Phosphatase C-Reactive Protein Total Protein Albumin Lipase Vitamin B12 TSH Urine WBC (Auto) Urine Chloride Urine Total Protein Crossmatch 10/16/16 10/16/16 10/16/16 10:47 13:27 14:24 WBC RBC Hgb Hct MCV RDW Plt Count Lymph % (Auto) [place] % (Auto) [place] # Seg Neutrophils % Seg Neuts % (Manual) Lymphocytes % (Manual) Monocytes % (Manual) Nucleated RBC % Seg Neutrophils # Seg Neutrophils # Man Lymphocytes # (Manual) Monocytes # (Manual) Eosinophils # (Manual) Basophils # (Manual) PT INR APTT Heparin Anti-Xa Level POC ABG pH POC ABG pCO2 POC ABG pO2 Sodium Potassium Chloride Carbon Dioxide BUN Creatinine Glucose POC Glucose 184 H 171 H 174 H Calcium Phosphorus Magnesium AST Alkaline Phosphatase C-Reactive Protein Total Protein Albumin Lipase Vitamin B12 TSH Urine WBC (Auto) Urine Chloride Urine Total Protein Crossmatch 10/16/16 10/16/16 10/16/16 15:48 16:26 18:17 WBC RBC Hgb Hct MCV RDW Plt Count Lymph % (Auto) [place] % (Auto) [place] # Seg Neutrophils % Seg Neuts % (Manual) Lymphocytes % (Manual) Monocytes % (Manual) Nucleated RBC % Seg Neutrophils # Seg Neutrophils # Man Lymphocytes # (Manual) Monocytes # (Manual) Eosinophils # (Manual) Basophils # (Manual) PT INR APTT Heparin Anti-Xa Level POC ABG pH POC ABG pCO2 POC ABG pO2 Sodium Potassium Chloride Carbon Dioxide BUN Creatinine Glucose POC Glucose 205 H 204 H 234 H Calcium Phosphorus Magnesium AST Alkaline Phosphatase C-Reactive Protein Total Protein Albumin Lipase Vitamin B12 TSH Urine WBC (Auto) Urine Chloride Urine Total Protein Crossmatch 10/16/16 10/16/16 10/16/16 19:40 20:33 21:36 WBC RBC Hgb Hct MCV RDW Plt Count Lymph % (Auto) [place] % (Auto) [place] # Seg Neutrophils % Seg Neuts % (Manual) Lymphocytes % (Manual) Monocytes % (Manual) Nucleated RBC % Seg Neutrophils # Seg Neutrophils # Man Lymphocytes # (Manual) Monocytes # (Manual) Eosinophils # (Manual) Basophils # (Manual) PT INR APTT Heparin Anti-Xa Level POC ABG pH POC ABG pCO2 POC ABG pO2 Sodium Potassium Chloride Carbon Dioxide BUN Creatinine Glucose POC Glucose 167 H 153 H 158 H Calcium Phosphorus Magnesium AST Alkaline Phosphatase C-Reactive Protein Total Protein Albumin Lipase Vitamin B12 TSH Urine WBC (Auto) Urine Chloride Urine Total Protein Crossmatch 10/16/16 10/16/16 10/17/16 22:54 23:48 00:47 WBC RBC Hgb Hct MCV RDW Plt Count Lymph % (Auto) [place] % (Auto) [place] # Seg Neutrophils % Seg Neuts % (Manual) Lymphocytes % (Manual) Monocytes % (Manual) Nucleated RBC % Seg Neutrophils # Seg Neutrophils # Man Lymphocytes # (Manual) Monocytes # (Manual) Eosinophils # (Manual) Basophils # (Manual) PT INR APTT Heparin Anti-Xa Level POC ABG pH POC ABG pCO2 POC ABG pO2 Sodium Potassium Chloride Carbon Dioxide BUN Creatinine Glucose POC Glucose 180 H 207 H 196 H Calcium Phosphorus Magnesium AST Alkaline Phosphatase C-Reactive Protein Total Protein Albumin Lipase Vitamin B12 TSH Urine WBC (Auto) Urine Chloride Urine Total Protein Crossmatch 10/17/16 10/17/16 10/17/16 01:57 02:49 03:50 WBC RBC Hgb Hct MCV RDW Plt Count Lymph % (Auto) [place] % (Auto) [place] # Seg Neutrophils % Seg Neuts % (Manual) Lymphocytes % (Manual) Monocytes % (Manual) Nucleated RBC % Seg Neutrophils # Seg Neutrophils # Man Lymphocytes # (Manual) Monocytes # (Manual) Eosinophils # (Manual) Basophils # (Manual) PT INR APTT Heparin Anti-Xa Level POC ABG pH POC ABG pCO2 POC ABG pO2 Sodium Potassium Chloride Carbon Dioxide BUN Creatinine Glucose POC Glucose 180 H 151 H 106 H Calcium Phosphorus Magnesium AST Alkaline Phosphatase C-Reactive Protein Total Protein Albumin Lipase Vitamin B12 TSH Urine WBC (Auto) Urine Chloride Urine Total Protein Crossmatch 10/17/16 10/17/16 10/17/16 04:59 06:03 06:35 WBC RBC Hgb Hct MCV RDW Plt Count Lymph % (Auto) [place] % (Auto) [place] # Seg Neutrophils % Seg Neuts % (Manual) Lymphocytes % (Manual) Monocytes % (Manual) Nucleated RBC % Seg Neutrophils # Seg Neutrophils # Man Lymphocytes # (Manual) Monocytes # (Manual) Eosinophils # (Manual) Basophils # (Manual) PT INR APTT Heparin Anti-Xa Level POC ABG pH 7.453 H POC ABG pCO2 30.1 L POC ABG pO2 111 H Sodium Potassium Chloride Carbon Dioxide BUN Creatinine Glucose POC Glucose 145 H 157 H Calcium Phosphorus Magnesium AST Alkaline Phosphatase C-Reactive Protein Total Protein Albumin Lipase Vitamin B12 TSH Urine WBC (Auto) Urine Chloride Urine Total Protein Crossmatch 10/17/16 10/17/16 10/17/16 07:08 07:11 08:01 WBC RBC Hgb Hct MCV RDW Plt Count Lymph % (Auto) [place] % (Auto) [place] # Seg Neutrophils % Seg Neuts % (Manual) Lymphocytes % (Manual) Monocytes % (Manual) Nucleated RBC % Seg Neutrophils # Seg Neutrophils # Man Lymphocytes # (Manual) Monocytes # (Manual) Eosinophils # (Manual) Basophils # (Manual) PT INR APTT Heparin Anti-Xa Level POC ABG pH POC ABG pCO2 POC ABG pO2 Sodium 147 H Potassium Chloride 113.8 H Carbon Dioxide 19 L BUN Creatinine Glucose 136 H POC Glucose 136 H 152 H Calcium 7.7 L Phosphorus Magnesium AST Alkaline Phosphatase C-Reactive Protein Total Protein Albumin Lipase Vitamin B12 TSH Urine WBC (Auto) Urine Chloride Urine Total Protein Crossmatch 10/17/16 10/17/16 10/17/16 08:23 09:17 09:53 WBC 18.1 H RBC 3.01 L Hgb 9.7 L Hct 29.4 L MCV 98 H RDW Plt Count 116 L Lymph % (Auto) [place] % (Auto) [place] # Seg Neutrophils % Seg Neuts % (Manual) 77.0 H Lymphocytes % (Manual) 4.0 L Monocytes % (Manual) 12.0 H Nucleated RBC % Seg Neutrophils # Seg Neutrophils # Man 13.9 H Lymphocytes # (Manual) 0.7 L Monocytes # (Manual) 2.2 H Eosinophils # (Manual) Basophils # (Manual) PT INR APTT Heparin Anti-Xa Level POC ABG pH POC ABG pCO2 POC ABG pO2 Sodium Potassium Chloride Carbon Dioxide BUN Creatinine Glucose POC Glucose 148 H 137 H Calcium Phosphorus Magnesium AST Alkaline Phosphatase C-Reactive Protein Total Protein Albumin Lipase Vitamin B12 TSH Urine WBC (Auto) Urine Chloride Urine Total Protein Crossmatch 10/17/16 10/17/16 10/17/16 11:43 16:07 17:42 WBC RBC Hgb Hct MCV RDW Plt Count Lymph % (Auto) [place] % (Auto) [place] # Seg Neutrophils % Seg Neuts % (Manual) Lymphocytes % (Manual) Monocytes % (Manual) Nucleated RBC % Seg Neutrophils # Seg Neutrophils # Man Lymphocytes # (Manual) Monocytes # (Manual) Eosinophils # (Manual) Basophils # (Manual) PT 16.4 H INR 1.33 H APTT 38.8 H Heparin Anti-Xa Level POC ABG pH POC ABG pCO2 POC ABG pO2 Sodium Potassium Chloride Carbon Dioxide BUN Creatinine Glucose POC Glucose 179 H 153 H Calcium Phosphorus Magnesium AST Alkaline Phosphatase C-Reactive Protein Total Protein Albumin Lipase Vitamin B12 TSH Urine WBC (Auto) Urine Chloride Urine Total Protein Crossmatch 10/17/16 10/18/16 10/18/16 22:54 04:37 05:39 WBC RBC Hgb Hct MCV RDW Plt Count Lymph % (Auto) [place] % (Auto) [place] # Seg Neutrophils % Seg Neuts % (Manual) Lymphocytes % (Manual) Monocytes % (Manual) Nucleated RBC % Seg Neutrophils # Seg Neutrophils # Man Lymphocytes # (Manual) Monocytes # (Manual) Eosinophils # (Manual) Basophils # (Manual) PT INR APTT Heparin Anti-Xa Level 0.27 L POC ABG pH 7.454 H POC ABG pCO2 30.8 L POC ABG pO2 115 H Sodium Potassium Chloride Carbon Dioxide BUN Creatinine Glucose POC Glucose 69 L Calcium Phosphorus Magnesium AST Alkaline Phosphatase C-Reactive Protein Total Protein Albumin Lipase Vitamin B12 TSH Urine WBC (Auto) Urine Chloride Urine Total Protein Crossmatch 10/18/16 10/18/16 10/18/16 06:46 06:46 06:46 WBC 20.5 H RBC 2.62 L Hgb 8.4 L Hct 26.0 L MCV 100 H RDW Plt Count Lymph % (Auto) [place] % (Auto) [place] # Seg Neutrophils % Seg Neuts % (Manual) 75.0 H Lymphocytes % (Manual) 9.0 L Monocytes % (Manual) 14.0 H Nucleated RBC % Seg Neutrophils # Seg Neutrophils # Man 15.4 H Lymphocytes # (Manual) Monocytes # (Manual) 2.9 H Eosinophils # (Manual) Basophils # (Manual) PT INR APTT Heparin Anti-Xa Level POC ABG pH POC ABG pCO2 POC ABG pO2 Sodium Potassium Chloride 110.6 H Carbon Dioxide BUN Creatinine 1.3 H Glucose 153 H POC Glucose Calcium 8.0 L Phosphorus Magnesium 1.6 L AST Alkaline Phosphatase C-Reactive Protein Total Protein Albumin Lipase Vitamin B12 TSH Urine WBC (Auto) Urine Chloride Urine Total Protein Crossmatch 10/18/16 10/18/16 10/18/16 07:30 11:37 17:51 WBC RBC Hgb Hct MCV RDW Plt Count Lymph % (Auto) [place] % (Auto) [place] # Seg Neutrophils % Seg Neuts % (Manual) Lymphocytes % (Manual) Monocytes % (Manual) Nucleated RBC % Seg Neutrophils # Seg Neutrophils # Man Lymphocytes # (Manual) Monocytes # (Manual) Eosinophils # (Manual) Basophils # (Manual) PT INR APTT Heparin Anti-Xa Level POC ABG pH POC ABG pCO2 POC ABG pO2 Sodium Potassium Chloride Carbon Dioxide BUN Creatinine Glucose POC Glucose 162 H 156 H 164 H Calcium Phosphorus Magnesium AST Alkaline Phosphatase C-Reactive Protein Total Protein Albumin Lipase Vitamin B12 TSH Urine WBC (Auto) Urine Chloride Urine Total Protein Crossmatch 10/18/16 10/19/16 10/19/16 23:44 03:59 05:13 WBC 18.2 H RBC 2.76 L Hgb 9.0 L Hct 27.7 L MCV 100 H RDW Plt Count Lymph % (Auto) [place] % (Auto) [place] # Seg Neutrophils % Seg Neuts % (Manual) 76.0 H Lymphocytes % (Manual) 10.0 L Monocytes % (Manual) Nucleated RBC % Seg Neutrophils # Seg Neutrophils # Man 13.8 H Lymphocytes # (Manual) Monocytes # (Manual) Eosinophils # (Manual) Basophils # (Manual) PT INR APTT Heparin Anti-Xa Level POC ABG pH POC ABG pCO2 32.2 L POC ABG pO2 128 H Sodium Potassium Chloride Carbon Dioxide BUN Creatinine Glucose POC Glucose 278 H Calcium Phosphorus Magnesium AST Alkaline Phosphatase C-Reactive Protein Total Protein Albumin Lipase Vitamin B12 TSH Urine WBC (Auto) Urine Chloride Urine Total Protein Crossmatch 10/19/16 10/19/16 10/19/16 06:01 06:30 12:20 WBC RBC Hgb Hct MCV RDW Plt Count Lymph % (Auto) [place] % (Auto) [place] # Seg Neutrophils % Seg Neuts % (Manual) Lymphocytes % (Manual) Monocytes % (Manual) Nucleated RBC % Seg Neutrophils # Seg Neutrophils # Man Lymphocytes # (Manual) Monocytes # (Manual) Eosinophils # (Manual) Basophils # (Manual) PT INR APTT Heparin Anti-Xa Level POC ABG pH POC ABG pCO2 POC ABG pO2 Sodium Potassium Chloride Carbon Dioxide 18 L BUN Creatinine 1.3 H Glucose 262 H POC Glucose 261 H 349 H Calcium 7.7 L Phosphorus 4.8 H D Magnesium AST Alkaline Phosphatase C-Reactive Protein Total Protein Albumin Lipase Vitamin B12 TSH Urine WBC (Auto) Urine Chloride Urine Total Protein Crossmatch 10/19/16 10/20/16 10/20/16 16:48 00:17 05:20 WBC 22.5 H RBC 2.80 L Hgb 8.9 L Hct 28.3 L MCV 101 H RDW Plt Count Lymph % (Auto) [place] % (Auto) [place] # Seg Neutrophils % Seg Neuts % (Manual) Lymphocytes % (Manual) 10.0 L Monocytes % (Manual) Nucleated RBC % Seg Neutrophils # Seg Neutrophils # Man 13.3 H Lymphocytes # (Manual) Monocytes # (Manual) 1.1 H Eosinophils # (Manual) 0.7 H Basophils # (Manual) PT INR APTT Heparin Anti-Xa Level POC ABG pH POC ABG pCO2 POC ABG pO2 Sodium Potassium Chloride Carbon Dioxide BUN Creatinine Glucose POC Glucose 248 H 346 H Calcium Phosphorus Magnesium AST Alkaline Phosphatase C-Reactive Protein Total Protein Albumin Lipase Vitamin B12 TSH Urine WBC (Auto) Urine Chloride Urine Total Protein Crossmatch 10/20/16 10/20/16 10/20/16 05:20 05:20 06:05 WBC RBC Hgb Hct MCV RDW Plt Count Lymph % (Auto) [place] % (Auto) [place] # Seg Neutrophils % Seg Neuts % (Manual) Lymphocytes % (Manual) Monocytes % (Manual) Nucleated RBC % Seg Neutrophils # Seg Neutrophils # Man Lymphocytes # (Manual) Monocytes # (Manual) Eosinophils # (Manual) Basophils # (Manual) PT INR APTT Heparin Anti-Xa Level 0.20 L POC ABG pH POC ABG pCO2 POC ABG pO2 Sodium Potassium Chloride Carbon Dioxide BUN 20 H Creatinine Glucose 374 H POC Glucose 337 H Calcium 8.3 L Phosphorus Magnesium AST Alkaline Phosphatase C-Reactive Protein Total Protein Albumin Lipase Vitamin B12 TSH Urine WBC (Auto) Urine Chloride Urine Total Protein Crossmatch 10/20/16 10/20/16 10/20/16 11:49 13:59 17:56 WBC RBC Hgb Hct MCV RDW Plt Count Lymph % (Auto) [place] % (Auto) [place] # Seg Neutrophils % Seg Neuts % (Manual) Lymphocytes % (Manual) Monocytes % (Manual) Nucleated RBC % Seg Neutrophils # Seg Neutrophils # Man Lymphocytes # (Manual) Monocytes # (Manual) Eosinophils # (Manual) Basophils # (Manual) PT INR APTT Heparin Anti-Xa Level 2.00 H POC ABG pH POC ABG pCO2 POC ABG pO2 Sodium Potassium Chloride Carbon Dioxide BUN Creatinine Glucose POC Glucose 305 H 362 H Calcium Phosphorus Magnesium AST Alkaline Phosphatase C-Reactive Protein Total Protein Albumin Lipase Vitamin B12 TSH Urine WBC (Auto) Urine Chloride Urine Total Protein Crossmatch 10/20/16 10/21/16 10/21/16 23:52 05:00 05:49 WBC 22.9 H RBC 2.49 L Hgb 7.7 L Hct 25.6 L MCV 103 H RDW Plt Count Lymph % (Auto) [place] % (Auto) [place] # Seg Neutrophils % Seg Neuts % (Manual) 94.0 H Lymphocytes % (Manual) 1.0 L Monocytes % (Manual) Nucleated RBC % Seg Neutrophils # Seg Neutrophils # Man 21.5 H Lymphocytes # (Manual) 0.2 L Monocytes # (Manual) 1.1 H Eosinophils # (Manual) Basophils # (Manual) PT INR APTT Heparin Anti-Xa Level POC ABG pH POC ABG pCO2 POC ABG pO2 Sodium Potassium Chloride Carbon Dioxide BUN Creatinine Glucose POC Glucose 252 H 180 H Calcium Phosphorus Magnesium AST Alkaline Phosphatase C-Reactive Protein Total Protein Albumin Lipase Vitamin B12 TSH Urine WBC (Auto) Urine Chloride Urine Total Protein Crossmatch 10/21/16 10/21/16 10/21/16 11:47 11:49 14:10 WBC RBC Hgb Hct MCV RDW Plt Count Lymph % (Auto) [place] % (Auto) [place] # Seg Neutrophils % Seg Neuts % (Manual) Lymphocytes % (Manual) Monocytes % (Manual) Nucleated RBC % Seg Neutrophils # Seg Neutrophils # Man Lymphocytes # (Manual) Monocytes # (Manual) Eosinophils # (Manual) Basophils # (Manual) PT INR APTT Heparin Anti-Xa Level POC ABG pH POC ABG pCO2 POC ABG pO2 Sodium Potassium Chloride Carbon Dioxide BUN Creatinine Glucose POC Glucose 50 L 56 L 140 H Calcium Phosphorus Magnesium AST Alkaline Phosphatase C-Reactive Protein Total Protein Albumin Lipase Vitamin B12 TSH Urine WBC (Auto) Urine Chloride Urine Total Protein Crossmatch 10/21/16 10/21/16 10/22/16 18:24 Unknown 00:07 WBC RBC Hgb Hct MCV RDW Plt Count Lymph % (Auto) [place] % (Auto) [place] # Seg Neutrophils % Seg Neuts % (Manual) Lymphocytes % (Manual) Monocytes % (Manual) Nucleated RBC % Seg Neutrophils # Seg Neutrophils # Man Lymphocytes # (Manual) Monocytes # (Manual) Eosinophils # (Manual) Basophils # (Manual) PT INR APTT Heparin Anti-Xa Level POC ABG pH POC ABG pCO2 POC ABG pO2 Sodium 150 H Potassium 3.1 L Chloride 112.4 H Carbon Dioxide BUN 25 H Creatinine 1.4 H Glucose POC Glucose 175 H 218 H Calcium 8.0 L Phosphorus Magnesium AST Alkaline Phosphatase C-Reactive Protein Total Protein Albumin Lipase Vitamin B12 TSH Urine WBC (Auto) Urine Chloride Urine Total Protein Crossmatch 10/22/16 10/22/16 10/22/16 04:20 04:20 10:25 WBC 20.8 H RBC 2.37 L Hgb 7.5 L Hct 23.9 L MCV 101 H RDW Plt Count Lymph % (Auto) [place] % (Auto) [place] # Seg Neutrophils % Seg Neuts % (Manual) 89.0 H Lymphocytes % (Manual) 7.0 L Monocytes % (Manual) Nucleated RBC % Seg Neutrophils # Seg Neutrophils # Man 18.5 H Lymphocytes # (Manual) Monocytes # (Manual) Eosinophils # (Manual) Basophils # (Manual) 0.2 H PT INR APTT Heparin Anti-Xa Level POC ABG pH POC ABG pCO2 POC ABG pO2 Sodium 148 H Potassium 2.9 L* Chloride 109.4 H Carbon Dioxide BUN 26 H Creatinine Glucose 140 H POC Glucose Calcium 7.5 L Phosphorus Magnesium AST Alkaline Phosphatase C-Reactive Protein Total Protein Albumin Lipase Vitamin B12 976.8 H TSH Urine WBC (Auto) Urine Chloride Urine Total Protein Crossmatch 10/22/16 10/22/16 10/22/16 10:25 14:50 18:16 WBC RBC Hgb Hct MCV RDW Plt Count Lymph % (Auto) [place] % (Auto) [place] # Seg Neutrophils % Seg Neuts % (Manual) Lymphocytes % (Manual) Monocytes % (Manual) Nucleated RBC % Seg Neutrophils # Seg Neutrophils # Man Lymphocytes # (Manual) Monocytes # (Manual) Eosinophils # (Manual) Basophils # (Manual) PT INR APTT Heparin Anti-Xa Level POC ABG pH POC ABG pCO2 POC ABG pO2 Sodium Potassium Chloride Carbon Dioxide BUN Creatinine Glucose POC Glucose 193 H Calcium Phosphorus Magnesium AST Alkaline Phosphatase C-Reactive Protein Total Protein Albumin Lipase Vitamin B12 TSH 0.143 L 0.162 L Urine WBC (Auto) Urine Chloride Urine Total Protein Crossmatch 10/22/16 10/22/16 10/22/16 20:00 20:00 20:00 WBC 24.1 H RBC 2.58 L Hgb 8.2 L Hct 26.4 L MCV 102 H RDW Plt Count Lymph % (Auto) [place] % (Auto) [place] # Seg Neutrophils % Seg Neuts % (Manual) 74.0 H Lymphocytes % (Manual) 7.0 L Monocytes % (Manual) Nucleated RBC % Seg Neutrophils # Seg Neutrophils # Man 17.8 H Lymphocytes # (Manual) Monocytes # (Manual) Eosinophils # (Manual) Basophils # (Manual) PT INR APTT Heparin Anti-Xa Level 1.92 H POC ABG pH POC ABG pCO2 POC ABG pO2 Sodium Potassium Chloride Carbon Dioxide BUN Creatinine Glucose POC Glucose Calcium Phosphorus Magnesium AST Alkaline Phosphatase C-Reactive Protein Total Protein Albumin Lipase Vitamin B12 TSH Urine WBC (Auto) Urine Chloride Urine Total Protein Crossmatch See Detail 10/23/16 10/23/16 10/23/16 00:21 06:09 12:07 WBC RBC Hgb Hct MCV RDW Plt Count Lymph % (Auto) [place] % (Auto) [place] # Seg Neutrophils % Seg Neuts % (Manual) Lymphocytes % (Manual) Monocytes % (Manual) Nucleated RBC % Seg Neutrophils # Seg Neutrophils # Man Lymphocytes # (Manual) Monocytes # (Manual) Eosinophils # (Manual) Basophils # (Manual) PT INR APTT Heparin Anti-Xa Level POC ABG pH POC ABG pCO2 POC ABG pO2 Sodium Potassium Chloride Carbon Dioxide BUN Creatinine Glucose POC Glucose 283 H 241 H 340 H Calcium Phosphorus Magnesium AST Alkaline Phosphatase C-Reactive Protein Total Protein Albumin Lipase Vitamin B12 TSH Urine WBC (Auto) Urine Chloride Urine Total Protein Crossmatch 10/23/16 10/23/16 10/23/16 14:01 16:00 17:59 WBC RBC Hgb Hct MCV RDW Plt Count Lymph % (Auto) [place] % (Auto) [place] # Seg Neutrophils % Seg Neuts % (Manual) Lymphocytes % (Manual) Monocytes % (Manual) Nucleated RBC % Seg Neutrophils # Seg Neutrophils # Man Lymphocytes # (Manual) Monocytes # (Manual) Eosinophils # (Manual) Basophils # (Manual) PT INR APTT Heparin Anti-Xa Level 0.19 L POC ABG pH POC ABG pCO2 32.4 L POC ABG pO2 Sodium Potassium Chloride Carbon Dioxide BUN Creatinine Glucose POC Glucose 245 H Calcium Phosphorus Magnesium AST Alkaline Phosphatase C-Reactive Protein Total Protein Albumin Lipase Vitamin B12 TSH Urine WBC (Auto) Urine Chloride Urine Total Protein Crossmatch 10/23/16 10/23/16 10/23/16 22:55 Unknown Unknown WBC 22.6 H RBC 3.26 L Hgb Hct MCV RDW 17.1 H Plt Count Lymph % (Auto) [place] % (Auto) [place] # Seg Neutrophils % Seg Neuts % (Manual) Lymphocytes % (Manual) 11.0 L Monocytes % (Manual) Nucleated RBC % Seg Neutrophils # Seg Neutrophils # Man 14.0 H Lymphocytes # (Manual) Monocytes # (Manual) Eosinophils # (Manual) Basophils # (Manual) PT INR APTT Heparin Anti-Xa Level 0.17 L 0.15 L POC ABG pH POC ABG pCO2 POC ABG pO2 Sodium Potassium Chloride Carbon Dioxide BUN Creatinine Glucose POC Glucose Calcium Phosphorus Magnesium AST Alkaline Phosphatase C-Reactive Protein Total Protein Albumin Lipase Vitamin B12 TSH Urine WBC (Auto) Urine Chloride Urine Total Protein Crossmatch 10/23/16 10/24/16 10/24/16 Unknown 00:05 05:30 WBC RBC Hgb Hct MCV RDW Plt Count Lymph % (Auto) [place] % (Auto) [place] # Seg Neutrophils % Seg Neuts % (Manual) Lymphocytes % (Manual) Monocytes % (Manual) Nucleated RBC % Seg Neutrophils # Seg Neutrophils # Man Lymphocytes # (Manual) Monocytes # (Manual) Eosinophils # (Manual) Basophils # (Manual) PT INR APTT Heparin Anti-Xa Level 0.13 L POC ABG pH POC ABG pCO2 POC ABG pO2 Sodium Potassium Chloride 111.2 H Carbon Dioxide 20 L BUN 25 H Creatinine Glucose 227 H POC Glucose 118 H Calcium 7.1 L Phosphorus Magnesium AST Alkaline Phosphatase C-Reactive Protein Total Protein Albumin Lipase Vitamin B12 TSH Urine WBC (Auto) Urine Chloride Urine Total Protein Crossmatch 10/24/16 10/24/16 10/24/16 11:00 11:00 12:06 WBC 17.6 H RBC 2.92 L Hgb 9.2 L Hct 28.3 L MCV RDW 16.9 H Plt Count Lymph % (Auto) [place] % (Auto) [place] # Seg Neutrophils % Seg Neuts % (Manual) Lymphocytes % (Manual) Monocytes % (Manual) Nucleated RBC % Seg Neutrophils # Seg Neutrophils # Man Lymphocytes # (Manual) Monocytes # (Manual) Eosinophils # (Manual) Basophils # (Manual) PT INR APTT Heparin Anti-Xa Level 0.27 L POC ABG pH POC ABG pCO2 POC ABG pO2 Sodium Potassium Chloride Carbon Dioxide BUN Creatinine Glucose POC Glucose 166 H Calcium Phosphorus Magnesium AST Alkaline Phosphatase C-Reactive Protein Total Protein Albumin Lipase Vitamin B12 TSH Urine WBC (Auto) Urine Chloride Urine Total Protein Crossmatch 10/24/16 10/25/16 10/25/16 12:27 00:49 03:30 WBC RBC Hgb 8.8 L Hct 28.1 L MCV RDW Plt Count Lymph % (Auto) [place] % (Auto) [place] # Seg Neutrophils % Seg Neuts % (Manual) Lymphocytes % (Manual) Monocytes % (Manual) Nucleated RBC % Seg Neutrophils # Seg Neutrophils # Man Lymphocytes # (Manual) Monocytes # (Manual) Eosinophils # (Manual) Basophils # (Manual) PT INR APTT Heparin Anti-Xa Level POC ABG pH POC ABG pCO2 33.9 L POC ABG pO2 Sodium Potassium Chloride Carbon Dioxide BUN Creatinine Glucose POC Glucose 121 H Calcium Phosphorus Magnesium AST Alkaline Phosphatase C-Reactive Protein Total Protein Albumin Lipase Vitamin B12 TSH Urine WBC (Auto) Urine Chloride Urine Total Protein Crossmatch 10/25/16 10/25/16 10/25/16 09:49 12:10 19:25 WBC 21.1 H RBC 3.02 L Hgb 9.3 L Hct 28.9 L MCV RDW 16.3 H Plt Count Lymph % (Auto) [place] % (Auto) [place] # Seg Neutrophils % Seg Neuts % (Manual) 81.0 H Lymphocytes % (Manual) 9.0 L Monocytes % (Manual) Nucleated RBC % Seg Neutrophils # Seg Neutrophils # Man 17.1 H Lymphocytes # (Manual) Monocytes # (Manual) Eosinophils # (Manual) Basophils # (Manual) PT INR APTT Heparin Anti-Xa Level POC ABG pH POC ABG pCO2 POC ABG pO2 Sodium Potassium Chloride Carbon Dioxide BUN Creatinine Glucose POC Glucose 158 H 151 H Calcium Phosphorus Magnesium AST Alkaline Phosphatase C-Reactive Protein Total Protein Albumin Lipase Vitamin B12 TSH Urine WBC (Auto) Urine Chloride Urine Total Protein Crossmatch 10/26/16 10/26/16 10/26/16 00:20 01:09 05:02 WBC 22.2 H RBC 2.89 L Hgb 8.7 L Hct 27.8 L MCV RDW 16.4 H Plt Count Lymph % (Auto) [place] % (Auto) [place] # Seg Neutrophils % Seg Neuts % (Manual) Lymphocytes % (Manual) Monocytes % (Manual) Nucleated RBC % Seg Neutrophils # Seg Neutrophils # Man Lymphocytes # (Manual) Monocytes # (Manual) Eosinophils # (Manual) Basophils # (Manual) PT INR APTT Heparin Anti-Xa Level POC ABG pH POC ABG pCO2 POC ABG pO2 Sodium Potassium Chloride Carbon Dioxide BUN Creatinine Glucose POC Glucose 44 L 112 H Calcium Phosphorus Magnesium AST Alkaline Phosphatase C-Reactive Protein Total Protein Albumin Lipase Vitamin B12 TSH Urine WBC (Auto) Urine Chloride Urine Total Protein Crossmatch 10/26/16 10/26/16 10/26/16 05:02 12:11 12:14 WBC RBC Hgb Hct MCV RDW Plt Count Lymph % (Auto) [place] % (Auto) [place] # Seg Neutrophils % Seg Neuts % (Manual) Lymphocytes % (Manual) Monocytes % (Manual) Nucleated RBC % Seg Neutrophils # Seg Neutrophils # Man Lymphocytes # (Manual) Monocytes # (Manual) Eosinophils # (Manual) Basophils # (Manual) PT INR APTT Heparin Anti-Xa Level POC ABG pH POC ABG pCO2 32.0 L POC ABG pO2 33 L Sodium Potassium 3.2 L D Chloride Carbon Dioxide 20 L BUN 24 H Creatinine Glucose 104 H POC Glucose 194 H Calcium 7.7 L Phosphorus Magnesium AST Alkaline Phosphatase C-Reactive Protein Total Protein Albumin Lipase Vitamin B12 TSH Urine WBC (Auto) Urine Chloride Urine Total Protein Crossmatch 10/26/16 10/26/16 10/27/16 15:28 17:23 00:04 WBC RBC Hgb Hct MCV RDW Plt Count Lymph % (Auto) [place] % (Auto) [place] # Seg Neutrophils % Seg Neuts % (Manual) Lymphocytes % (Manual) Monocytes % (Manual) Nucleated RBC % Seg Neutrophils # Seg Neutrophils # Man Lymphocytes # (Manual) Monocytes # (Manual) Eosinophils # (Manual) Basophils # (Manual) PT INR APTT Heparin Anti-Xa Level POC ABG pH POC ABG pCO2 33.7 L POC ABG pO2 Sodium Potassium Chloride Carbon Dioxide BUN Creatinine Glucose POC Glucose 181 H 230 H Calcium Phosphorus Magnesium AST Alkaline Phosphatase C-Reactive Protein Total Protein Albumin Lipase Vitamin B12 TSH Urine WBC (Auto) Urine Chloride Urine Total Protein Crossmatch 10/27/16 10/27/16 10/27/16 05:15 05:15 05:38 WBC 25.5 H RBC 3.07 L Hgb 9.4 L Hct 30.1 L MCV 98 H RDW 16.4 H Plt Count 527 H Lymph % (Auto) [place] % (Auto) [place] # Seg Neutrophils % Seg Neuts % (Manual) Lymphocytes % (Manual) Monocytes % (Manual) Nucleated RBC % Seg Neutrophils # Seg Neutrophils # Man Lymphocytes # (Manual) Monocytes # (Manual) Eosinophils # (Manual) Basophils # (Manual) PT INR APTT Heparin Anti-Xa Level POC ABG pH POC ABG pCO2 POC ABG pO2 Sodium Potassium Chloride Carbon Dioxide 19 L BUN 23 H Creatinine Glucose 160 H POC Glucose 168 H Calcium 8.0 L Phosphorus Magnesium AST Alkaline Phosphatase C-Reactive Protein Total Protein Albumin Lipase Vitamin B12 TSH Urine WBC (Auto) Urine Chloride Urine Total Protein Crossmatch 10/27/16 10/27/16 10/27/16 11:59 18:35 23:48 WBC RBC Hgb Hct MCV RDW Plt Count Lymph % (Auto) [place] % (Auto) [place] # Seg Neutrophils % Seg Neuts % (Manual) Lymphocytes % (Manual) Monocytes % (Manual) Nucleated RBC % Seg Neutrophils # Seg Neutrophils # Man Lymphocytes # (Manual) Monocytes # (Manual) Eosinophils # (Manual) Basophils # (Manual) PT INR APTT Heparin Anti-Xa Level POC ABG pH POC ABG pCO2 POC ABG pO2 Sodium Potassium Chloride Carbon Dioxide BUN Creatinine Glucose POC Glucose 197 H 318 H 316 H Calcium Phosphorus Magnesium AST Alkaline Phosphatase C-Reactive Protein Total Protein Albumin Lipase Vitamin B12 TSH Urine WBC (Auto) Urine Chloride Urine Total Protein Crossmatch 10/28/16 10/28/16 10/28/16 03:13 04:10 04:10 WBC 18.8 H RBC 2.64 L Hgb 8.1 L Hct 26.1 L MCV 99 H RDW 16.2 H Plt Count 544 H Lymph % (Auto) [place] % (Auto) [place] # Seg Neutrophils % Seg Neuts % (Manual) Lymphocytes % (Manual) Monocytes % (Manual) Nucleated RBC % Seg Neutrophils # Seg Neutrophils # Man Lymphocytes # (Manual) Monocytes # (Manual) Eosinophils # (Manual) Basophils # (Manual) PT INR APTT Heparin Anti-Xa Level POC ABG pH POC ABG pCO2 POC ABG pO2 Sodium Potassium Chloride Carbon Dioxide 21 L BUN 24 H Creatinine Glucose 302 H POC Glucose 304 H Calcium 7.7 L Phosphorus Magnesium AST Alkaline Phosphatase C-Reactive Protein Total Protein Albumin Lipase Vitamin B12 TSH Urine WBC (Auto) Urine Chloride Urine Total Protein Crossmatch 10/28/16 10/28/16 10/28/16 04:10 12:36 18:27 WBC RBC Hgb Hct MCV RDW Plt Count Lymph % (Auto) [place] % (Auto) [place] # Seg Neutrophils % Seg Neuts % (Manual) Lymphocytes % (Manual) Monocytes % (Manual) Nucleated RBC % Seg Neutrophils # Seg Neutrophils # Man Lymphocytes # (Manual) Monocytes # (Manual) Eosinophils # (Manual) Basophils # (Manual) PT INR APTT Heparin Anti-Xa Level 0.20 L POC ABG pH POC ABG pCO2 POC ABG pO2 Sodium Potassium Chloride Carbon Dioxide BUN Creatinine Glucose POC Glucose 205 H 339 H Calcium Phosphorus Magnesium AST Alkaline Phosphatase C-Reactive Protein Total Protein Albumin Lipase Vitamin B12 TSH Urine WBC (Auto) Urine Chloride Urine Total Protein Crossmatch 10/29/16 10/29/16 10/29/16 01:05 06:19 09:30 WBC 20.3 H RBC 2.80 L Hgb 8.5 L Hct 26.7 L MCV RDW 15.4 H Plt Count 571 H Lymph % (Auto) [place] % (Auto) [place] # Seg Neutrophils % Seg Neuts % (Manual) 75.0 H Lymphocytes % (Manual) 4.0 L Monocytes % (Manual) Nucleated RBC % Seg Neutrophils # Seg Neutrophils # Man 15.2 H Lymphocytes # (Manual) 0.8 L Monocytes # (Manual) Eosinophils # (Manual) Basophils # (Manual) PT INR APTT Heparin Anti-Xa Level POC ABG pH POC ABG pCO2 POC ABG pO2 Sodium Potassium Chloride Carbon Dioxide BUN Creatinine Glucose POC Glucose 275 H 179 H Calcium Phosphorus Magnesium AST Alkaline Phosphatase C-Reactive Protein Total Protein Albumin Lipase Vitamin B12 TSH Urine WBC (Auto) Urine Chloride Urine Total Protein Crossmatch 10/29/16 10/29/16 10/29/16 11:46 15:18 17:55 WBC RBC Hgb Hct MCV RDW Plt Count Lymph % (Auto) [place] % (Auto) [place] # Seg Neutrophils % Seg Neuts % (Manual) Lymphocytes % (Manual) Monocytes % (Manual) Nucleated RBC % Seg Neutrophils # Seg Neutrophils # Man Lymphocytes # (Manual) Monocytes # (Manual) Eosinophils # (Manual) Basophils # (Manual) PT INR APTT Heparin Anti-Xa Level 1.15 H POC ABG pH POC ABG pCO2 POC ABG pO2 Sodium Potassium Chloride Carbon Dioxide BUN Creatinine Glucose POC Glucose 122 H 255 H Calcium Phosphorus Magnesium AST Alkaline Phosphatase C-Reactive Protein Total Protein Albumin Lipase Vitamin B12 TSH Urine WBC (Auto) Urine Chloride Urine Total Protein Crossmatch 10/30/16 10/30/16 10/30/16 00:10 05:30 05:30 WBC 19.8 H RBC 2.51 L Hgb 7.7 L Hct 24.1 L MCV RDW 15.5 H Plt Count 534 H Lymph % (Auto) [place] % (Auto) [place] # Seg Neutrophils % Seg Neuts % (Manual) Lymphocytes % (Manual) Monocytes % (Manual) Nucleated RBC % Seg Neutrophils # Seg Neutrophils # Man Lymphocytes # (Manual) Monocytes # (Manual) Eosinophils # (Manual) Basophils # (Manual) PT INR APTT Heparin Anti-Xa Level POC ABG pH POC ABG pCO2 POC ABG pO2 Sodium Potassium Chloride Carbon Dioxide BUN Creatinine Glucose 211 H POC Glucose 202 H Calcium 7.4 L Phosphorus Magnesium AST Alkaline Phosphatase C-Reactive Protein Total Protein Albumin Lipase Vitamin B12 TSH Urine WBC (Auto) Urine Chloride Urine Total Protein Crossmatch 10/30/16 10/30/16 10/30/16 06:32 12:51 17:47 WBC RBC Hgb Hct MCV RDW Plt Count Lymph % (Auto) [place] % (Auto) [place] # Seg Neutrophils % Seg Neuts % (Manual) Lymphocytes % (Manual) Monocytes % (Manual) Nucleated RBC % Seg Neutrophils # Seg Neutrophils # Man Lymphocytes # (Manual) Monocytes # (Manual) Eosinophils # (Manual) Basophils # (Manual) PT INR APTT Heparin Anti-Xa Level POC ABG pH POC ABG pCO2 POC ABG pO2 Sodium Potassium Chloride Carbon Dioxide BUN Creatinine Glucose POC Glucose 207 H 218 H 169 H Calcium Phosphorus Magnesium AST Alkaline Phosphatase C-Reactive Protein Total Protein Albumin Lipase Vitamin B12 TSH Urine WBC (Auto) Urine Chloride Urine Total Protein Crossmatch 10/30/16 10/31/16 10/31/16 23:59 05:25 11:21 WBC RBC Hgb Hct MCV RDW Plt Count Lymph % (Auto) [place] % (Auto) [place] # Seg Neutrophils % Seg Neuts % (Manual) Lymphocytes % (Manual) Monocytes % (Manual) Nucleated RBC % Seg Neutrophils # Seg Neutrophils # Man Lymphocytes # (Manual) Monocytes # (Manual) Eosinophils # (Manual) Basophils # (Manual) PT INR APTT Heparin Anti-Xa Level POC ABG pH POC ABG pCO2 POC ABG pO2 Sodium Potassium Chloride Carbon Dioxide BUN Creatinine Glucose POC Glucose 138 H 127 H 132 H Calcium Phosphorus Magnesium AST Alkaline Phosphatase C-Reactive Protein Total Protein Albumin Lipase Vitamin B12 TSH Urine WBC (Auto) Urine Chloride Urine Total Protein Crossmatch 10/31/16 10/31/16 11/01/16 17:07 23:54 05:47 WBC RBC Hgb Hct MCV RDW Plt Count Lymph % (Auto) [place] % (Auto) [place] # Seg Neutrophils % Seg Neuts % (Manual) Lymphocytes % (Manual) Monocytes % (Manual) Nucleated RBC % Seg Neutrophils # Seg Neutrophils # Man Lymphocytes # (Manual) Monocytes # (Manual) Eosinophils # (Manual) Basophils # (Manual) PT INR APTT Heparin Anti-Xa Level POC ABG pH POC ABG pCO2 POC ABG pO2 Sodium Potassium Chloride Carbon Dioxide BUN Creatinine Glucose POC Glucose 138 H 153 H 150 H Calcium Phosphorus Magnesium AST Alkaline Phosphatase C-Reactive Protein Total Protein Albumin Lipase Vitamin B12 TSH Urine WBC (Auto) Urine Chloride Urine Total Protein Crossmatch 11/01/16 11/01/16 11/01/16 06:33 06:33 12:16 WBC 19.2 H RBC 2.51 L Hgb 7.9 L Hct 24.8 L MCV 99 H D RDW 16.1 H Plt Count 569 H Lymph % (Auto) [place] % (Auto) [place] # Seg Neutrophils % Seg Neuts % (Manual) Lymphocytes % (Manual) Monocytes % (Manual) Nucleated RBC % Seg Neutrophils # Seg Neutrophils # Man Lymphocytes # (Manual) Monocytes # (Manual) Eosinophils # (Manual) Basophils # (Manual) PT INR APTT Heparin Anti-Xa Level POC ABG pH POC ABG pCO2 POC ABG pO2 Sodium Potassium 3.5 L Chloride Carbon Dioxide 21 L BUN Creatinine Glucose 137 H POC Glucose 125 H Calcium 7.7 L Phosphorus Magnesium AST Alkaline Phosphatase 148 H C-Reactive Protein Total Protein 6.2 L Albumin 2.0 L Lipase Vitamin B12 TSH Urine WBC (Auto) Urine Chloride Urine Total Protein Crossmatch 11/01/16 11/02/16 11/02/16 17:37 00:05 04:15 WBC RBC Hgb Hct MCV RDW Plt Count Lymph % (Auto) [place] % (Auto) [place] # Seg Neutrophils % Seg Neuts % (Manual) Lymphocytes % (Manual) Monocytes % (Manual) Nucleated RBC % Seg Neutrophils # Seg Neutrophils # Man Lymphocytes # (Manual) Monocytes # (Manual) Eosinophils # (Manual) Basophils # (Manual) PT INR APTT Heparin Anti-Xa Level < 0.10 L POC ABG pH POC ABG pCO2 POC ABG pO2 Sodium Potassium 3.2 L Chloride Carbon Dioxide BUN 6 L Creatinine Glucose 135 H POC Glucose 164 H Calcium 7.5 L Phosphorus Magnesium AST Alkaline Phosphatase 132 H C-Reactive Protein Total Protein 6.2 L Albumin 1.8 L Lipase Vitamin B12 TSH Urine WBC (Auto) Urine Chloride Urine Total Protein Crossmatch 11/02/16 11/02/16 11/02/16 04:15 05:54 12:15 WBC 17.7 H RBC 2.43 L Hgb 7.6 L Hct 23.5 L MCV RDW 15.9 H Plt Count 502 H Lymph % (Auto) [place] % (Auto) [place] # Seg Neutrophils % Seg Neuts % (Manual) 84.0 H Lymphocytes % (Manual) 11.0 L Monocytes % (Manual) Nucleated RBC % 1.0 H Seg Neutrophils # Seg Neutrophils # Man 14.9 H Lymphocytes # (Manual) Monocytes # (Manual) Eosinophils # (Manual) Basophils # (Manual) PT INR APTT Heparin Anti-Xa Level POC ABG pH POC ABG pCO2 POC ABG pO2 Sodium Potassium Chloride Carbon Dioxide BUN Creatinine Glucose POC Glucose 152 H 137 H Calcium Phosphorus Magnesium AST Alkaline Phosphatase C-Reactive Protein Total Protein Albumin Lipase Vitamin B12 TSH Urine WBC (Auto) Urine Chloride Urine Total Protein Crossmatch 11/02/16 11/03/16 11/03/16 17:00 00:05 00:05 WBC RBC Hgb Hct MCV RDW Plt Count Lymph % (Auto) [place] % (Auto) [place] # Seg Neutrophils % Seg Neuts % (Manual) Lymphocytes % (Manual) Monocytes % (Manual) Nucleated RBC % Seg Neutrophils # Seg Neutrophils # Man Lymphocytes # (Manual) Monocytes # (Manual) Eosinophils # (Manual) Basophils # (Manual) PT INR APTT Heparin Anti-Xa Level POC ABG pH POC ABG pCO2 POC ABG pO2 Sodium Potassium Chloride Carbon Dioxide 20 L BUN 5 L Creatinine Glucose 139 H POC Glucose 161 H Calcium 6.7 L Phosphorus Magnesium 1.2 L AST Alkaline Phosphatase C-Reactive Protein Total Protein Albumin Lipase Vitamin B12 TSH Urine WBC (Auto) Urine Chloride Urine Total Protein Crossmatch 11/03/16 11/03/16 11/03/16 00:05 02:05 04:23 WBC 15.9 H 14.0 H RBC 1.93 L 2.38 L Hgb 5.9 L* 7.3 L Hct 18.9 L* 23.1 L MCV 98 H RDW 15.9 H 15.9 H Plt Count Lymph % (Auto) [place] % (Auto) [place] # Seg Neutrophils % Seg Neuts % (Manual) 85.0 H Lymphocytes % (Manual) 4.0 L Monocytes % (Manual) Nucleated RBC % Seg Neutrophils # Seg Neutrophils # Man 13.5 H Lymphocytes # (Manual) 0.6 L Monocytes # (Manual) Eosinophils # (Manual) Basophils # (Manual) PT INR APTT Heparin Anti-Xa Level POC ABG pH POC ABG pCO2 POC ABG pO2 Sodium Potassium Chloride Carbon Dioxide BUN 5 L Creatinine Glucose 127 H POC Glucose Calcium 7.2 L Phosphorus Magnesium AST Alkaline Phosphatase C-Reactive Protein Total Protein 5.8 L Albumin 1.5 L Lipase Vitamin B12 TSH Urine WBC (Auto) Urine Chloride Urine Total Protein Crossmatch 11/03/16 11/03/16 11/03/16 09:14 09:27 11:54 WBC RBC Hgb Hct MCV RDW Plt Count Lymph % (Auto) [place] % (Auto) [place] # Seg Neutrophils % Seg Neuts % (Manual) Lymphocytes % (Manual) Monocytes % (Manual) Nucleated RBC % Seg Neutrophils # Seg Neutrophils # Man Lymphocytes # (Manual) Monocytes # (Manual) Eosinophils # (Manual) Basophils # (Manual) PT INR APTT Heparin Anti-Xa Level 0.11 L POC ABG pH POC ABG pCO2 POC ABG pO2 Sodium Potassium Chloride Carbon Dioxide BUN 5 L Creatinine Glucose 111 H POC Glucose 139 H Calcium 6.7 L Phosphorus Magnesium AST Alkaline Phosphatase C-Reactive Protein Total Protein Albumin Lipase Vitamin B12 TSH Urine WBC (Auto) Urine Chloride Urine Total Protein Crossmatch 11/03/16 11/03/16 11/03/16 16:26 18:01 18:01 WBC RBC Hgb Hct MCV RDW Plt Count Lymph % (Auto) [place] % (Auto) [place] # Seg Neutrophils % Seg Neuts % (Manual) Lymphocytes % (Manual) Monocytes % (Manual) Nucleated RBC % Seg Neutrophils # Seg Neutrophils # Man Lymphocytes # (Manual) Monocytes # (Manual) Eosinophils # (Manual) Basophils # (Manual) PT INR APTT Heparin Anti-Xa Level 2.00 H POC ABG pH POC ABG pCO2 POC ABG pO2 Sodium Potassium Chloride Carbon Dioxide BUN Creatinine Glucose POC Glucose 142 H Calcium Phosphorus Magnesium AST Alkaline Phosphatase C-Reactive Protein Total Protein Albumin Lipase Vitamin B12 TSH Urine WBC (Auto) Urine Chloride Urine Total Protein Crossmatch See Detail 11/04/16 11/04/16 11/04/16 02:15 02:15 06:35 WBC 11.8 H RBC 2.39 L Hgb 7.4 L Hct 23.1 L MCV RDW 15.9 H Plt Count Lymph % (Auto) [place] % (Auto) [place] # Seg Neutrophils % Seg Neuts % (Manual) 76.0 H Lymphocytes % (Manual) 12.0 L Monocytes % (Manual) 9.0 H Nucleated RBC % Seg Neutrophils # Seg Neutrophils # Man 9.0 H Lymphocytes # (Manual) Monocytes # (Manual) 1.1 H Eosinophils # (Manual) Basophils # (Manual) PT INR APTT Heparin Anti-Xa Level < 0.10 L POC ABG pH POC ABG pCO2 POC ABG pO2 Sodium Potassium Chloride Carbon Dioxide 21 L BUN 5 L Creatinine Glucose 112 H POC Glucose Calcium 6.8 L Phosphorus Magnesium AST Alkaline Phosphatase C-Reactive Protein Total Protein 5.7 L Albumin 1.7 L Lipase Vitamin B12 TSH Urine WBC (Auto) Urine Chloride Urine Total Protein Crossmatch 11/04/16 11/04/16 11/04/16 10:51 12:58 15:04 WBC RBC Hgb Hct MCV RDW Plt Count Lymph % (Auto) [place] % (Auto) [place] # Seg Neutrophils % Seg Neuts % (Manual) Lymphocytes % (Manual) Monocytes % (Manual) Nucleated RBC % Seg Neutrophils # Seg Neutrophils # Man Lymphocytes # (Manual) Monocytes # (Manual) Eosinophils # (Manual) Basophils # (Manual) PT INR APTT Heparin Anti-Xa Level 1.05 H POC ABG pH POC ABG pCO2 33.7 L POC ABG pO2 60 L Sodium Potassium Chloride Carbon Dioxide BUN Creatinine Glucose POC Glucose 118 H Calcium Phosphorus Magnesium AST Alkaline Phosphatase C-Reactive Protein Total Protein Albumin Lipase Vitamin B12 TSH Urine WBC (Auto) Urine Chloride Urine Total Protein Crossmatch 11/04/16 11/04/16 11/05/16 17:20 20:31 02:30 WBC RBC Hgb Hct MCV RDW Plt Count Lymph % (Auto) [place] % (Auto) [place] # Seg Neutrophils % Seg Neuts % (Manual) Lymphocytes % (Manual) Monocytes % (Manual) Nucleated RBC % Seg Neutrophils # Seg Neutrophils # Man Lymphocytes # (Manual) Monocytes # (Manual) Eosinophils # (Manual) Basophils # (Manual) PT INR APTT Heparin Anti-Xa Level POC ABG pH POC ABG pCO2 POC ABG pO2 Sodium Potassium 3.5 L Chloride Carbon Dioxide 18 L BUN 5 L Creatinine 0.6 L Glucose 110 H POC Glucose 228 H 169 H Calcium 7.1 L Phosphorus Magnesium AST Alkaline Phosphatase C-Reactive Protein Total Protein Albumin 1.9 L Lipase Vitamin B12 TSH Urine WBC (Auto) Urine Chloride Urine Total Protein Crossmatch 11/05/16 11/05/16 11/05/16 02:30 17:52 21:07 WBC 14.1 H RBC Hgb Hct MCV RDW 16.7 H Plt Count Lymph % (Auto) [place] % (Auto) [place] # Seg Neutrophils % Seg Neuts % (Manual) 80.0 H Lymphocytes % (Manual) 6.0 L Monocytes % (Manual) 8.0 H Nucleated RBC % Seg Neutrophils # Seg Neutrophils # Man 11.3 H Lymphocytes # (Manual) 0.8 L Monocytes # (Manual) 1.1 H Eosinophils # (Manual) Basophils # (Manual) PT INR APTT Heparin Anti-Xa Level < 0.10 L POC ABG pH POC ABG pCO2 POC ABG pO2 Sodium Potassium Chloride Carbon Dioxide BUN Creatinine Glucose POC Glucose 174 H Calcium Phosphorus Magnesium AST Alkaline Phosphatase C-Reactive Protein Total Protein Albumin Lipase Vitamin B12 TSH Urine WBC (Auto) Urine Chloride Urine Total Protein Crossmatch 11/05/16 11/06/16 11/06/16 23:30 05:00 05:00 WBC 15.2 H RBC 3.29 L Hgb 10.0 L Hct MCV RDW 16.9 H Plt Count Lymph % (Auto) [place] % (Auto) [place] # Seg Neutrophils % Seg Neuts % (Manual) Lymphocytes % (Manual) Monocytes % (Manual) Nucleated RBC % Seg Neutrophils # Seg Neutrophils # Man Lymphocytes # (Manual) Monocytes # (Manual) Eosinophils # (Manual) Basophils # (Manual) PT INR APTT Heparin Anti-Xa Level 0.94 H POC ABG pH POC ABG pCO2 POC ABG pO2 Sodium Potassium Chloride Carbon Dioxide BUN Creatinine Glucose POC Glucose 131 H Calcium Phosphorus Magnesium AST Alkaline Phosphatase C-Reactive Protein Total Protein Albumin Lipase Vitamin B12 TSH Urine WBC (Auto) Urine Chloride Urine Total Protein Crossmatch 11/06/16 11/06/16 11/06/16 05:00 11:45 18:23 WBC RBC Hgb Hct MCV RDW Plt Count Lymph % (Auto) [place] % (Auto) [place] # Seg Neutrophils % Seg Neuts % (Manual) Lymphocytes % (Manual) Monocytes % (Manual) Nucleated RBC % Seg Neutrophils # Seg Neutrophils # Man Lymphocytes # (Manual) Monocytes # (Manual) Eosinophils # (Manual) Basophils # (Manual) PT INR APTT Heparin Anti-Xa Level POC ABG pH POC ABG pCO2 POC ABG pO2 Sodium Potassium 3.5 L Chloride 107.1 H Carbon Dioxide 20 L BUN 4 L Creatinine 0.6 L Glucose 104 H POC Glucose 141 H 255 H Calcium 6.7 L Phosphorus Magnesium AST Alkaline Phosphatase C-Reactive Protein Total Protein Albumin Lipase Vitamin B12 TSH Urine WBC (Auto) Urine Chloride Urine Total Protein Crossmatch 11/06/16 11/06/16 11/07/16 22:07 23:07 Unknown WBC 12.3 H RBC 2.96 L Hgb 9.1 L Hct 27.9 L MCV RDW 16.8 H Plt Count Lymph % (Auto) [place] % (Auto) [place] # Seg Neutrophils % Seg Neuts % (Manual) 80.0 H Lymphocytes % (Manual) 7.0 L Monocytes % (Manual) Nucleated RBC % Seg Neutrophils # Seg Neutrophils # Man 9.8 H Lymphocytes # (Manual) 0.9 L Monocytes # (Manual) Eosinophils # (Manual) Basophils # (Manual) PT INR APTT Heparin Anti-Xa Level 0.80 H POC ABG pH POC ABG pCO2 POC ABG pO2 Sodium Potassium Chloride Carbon Dioxide BUN Creatinine Glucose POC Glucose 183 H Calcium Phosphorus Magnesium AST Alkaline Phosphatase C-Reactive Protein Total Protein Albumin Lipase Vitamin B12 TSH Urine WBC (Auto) Urine Chloride Urine Total Protein Crossmatch 11/07/16 11/07/16 Unknown Unknown WBC RBC Hgb Hct MCV RDW Plt Count Lymph % (Auto) [place] % (Auto) [place] # Seg Neutrophils % Seg Neuts % (Manual) Lymphocytes % (Manual) Monocytes % (Manual) Nucleated RBC % Seg Neutrophils # Seg Neutrophils # Man Lymphocytes # (Manual) Monocytes # (Manual) Eosinophils # (Manual) Basophils # (Manual) PT INR APTT Heparin Anti-Xa Level 0.90 H POC ABG pH POC ABG pCO2 POC ABG pO2 Sodium Potassium Chloride Carbon Dioxide 19 L BUN Creatinine Glucose 106 H POC Glucose Calcium 6.9 L Phosphorus Magnesium AST Alkaline Phosphatase C-Reactive Protein Total Protein Albumin Lipase Vitamin B12 TSH Urine WBC (Auto) Urine Chloride Urine Total Protein Crossmatch Allied health notes reviewed: RT
--- NOTE | 2016-11-07 11:45 | Progress Note ---
Assessment and Plan Assessment and plan: 1. Acute respiratory failure with hypercapnia. Vent supported. s/p Trach and PEG. Continue with bronchodilators and wean as tolerated. 2. Diabetes mellitus type II. Continue Sliding scale insulin 3. Sepsis- Leukocytosis Improving Suspected due to UTI, urine has only grown Paula, sputum cultures grew group B strep, continue broad-spectrum antibiotics, infectious disease input appreciated 4. 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/right lower extremity gangrene. The patient is status post recent right below the knee amputation. 5. Hypokalemia: Supplement potassium as needed 6. Toxic metabolic encephalopathy. Continue supportive care. 7. Sinus Tachycardia. Physiologic secondary to sepsis. 8. Anemia. Multifactorial including sepsis. s/p transfusion of PRBCs. Continue to follow H&H. History Interval history: No new issues overnight. Hospitalist Physical - Constitutional Vitals: Temp Pulse Resp BP Pulse Ox 98.4 F 88 17 125/62 96 11/07/16 08:00 11/07/16 07:00 11/07/16 07:00 11/07/16 07:00 11/07/16 07:00 General appearance: Present: no acute distress - EENT Eyes: Present: PERRL, EOM intact ENT: hearing intact, clear oral mucosa, dentition normal - Neck Neck: Present: supple, normal ROM - Respiratory Respiratory effort: normal Respiratory: bilateral: CTA - Cardiovascular Rhythm: regular Heart Sounds: Present: S1 & S2. Absent: gallop, rub - Extremities Extremities: no ischemia, No edema, Full ROM, abnormal (BKA) - Abdominal General gastrointestinal: soft, non-tender, non-distended, normal bowel sounds - Integumentary Integumentary: Present: clear, warm, dry - Neurologic Neurologic: CNII-XII intact, moves all extremities Results - Labs CBC & Chem 7: 11/07/16 Unknown 11/07/16 Unknown Labs: Laboratory Last Values WBC 12.3 K/mm3 (4.5-11.0) H 11/07/16 Unknown RBC 2.96 M/mm3 (3.65-5.03) L 11/07/16 Unknown Hgb 9.1 gm/dl (10.1-14.3) L 11/07/16 Unknown Hct 27.9 % (30.3-42.9) L 11/07/16 Unknown MCV 94 fl (79-97) 11/07/16 Unknown MCH 31 pg (28-32) 11/07/16 Unknown MCHC 33 % (30-34) 11/07/16 Unknown RDW 16.8 % (13.2-15.2) H 11/07/16 Unknown Plt Count 272 K/mm3 (140-440) 11/07/16 Unknown Lymph % (Auto) Launch Manager 11/04/16 02:15 Miner % (Auto) Launch Manager 11/04/16 02:15 Eos % (Auto) Launch Manager 11/04/16 02:15 Baso % (Auto) Launch Manager 11/04/16 02:15 Lymph # Launch Manager 11/04/16 02:15 Miner # Launch Manager 11/04/16 02:15 Eos # Launch Manager 11/04/16 02:15 Baso # Launch Manager 11/04/16 02:15 Add Manual Diff Complete 11/07/16 Unknown Total Counted 100 11/07/16 Unknown Seg Neutrophils % Launch Manager 11/04/16 02:15 Seg Neuts % (Manual) 80.0 % (40.0-70.0) H 11/07/16 Unknown Band Neutrophils % 10.0 % 11/07/16 Unknown Lymphocytes % (Manual) 7.0 % (13.4-35.0) L 11/07/16 Unknown Reactive Lymphs % (Man) 0 % 11/07/16 Unknown Monocytes % (Manual) 2.0 % (0.0-7.3) 11/07/16 Unknown Eosinophils % (Manual) 1.0 % (0.0-4.3) 11/07/16 Unknown Basophils % (Manual) 0 % (0.0-1.8) 11/07/16 Unknown Metamyelocytes % 0 % 11/07/16 Unknown Myelocytes % 0 % 11/07/16 Unknown Promyelocytes % 0 % 11/07/16 Unknown Blast Cells % 0 % 11/07/16 Unknown Nucleated RBC % Not Reportable 11/07/16 Unknown Seg Neutrophils # Launch Manager 11/04/16 02:15 Seg Neutrophils # Man 9.8 K/mm3 (1.8-7.7) H 11/07/16 Unknown Band Neutrophils # 1.2 K/mm3 11/07/16 Unknown Lymphocytes # (Manual) 0.9 K/mm3 (1.2-5.4) L 11/07/16 Unknown Abs React Lymphs (Man) 0.0 K/mm3 11/07/16 Unknown Monocytes # (Manual) 0.2 K/mm3 (0.0-0.8) 11/07/16 Unknown Eosinophils # (Manual) 0.1 K/mm3 (0.0-0.4) 11/07/16 Unknown Basophils # (Manual) 0.0 K/mm3 (0.0-0.1) 11/07/16 Unknown Metamyelocytes # 0.0 K/mm3 11/07/16 Unknown Myelocytes # 0.0 K/mm3 11/07/16 Unknown Promyelocytes # 0.0 K/mm3 11/07/16 Unknown Blast Cells # 0.0 K/mm3 11/07/16 Unknown Pathologist Review 10/29/16 09:30 WBC Morphology Not Reportable 11/07/16 Unknown Hypersegmented Neuts Not Reportable 11/07/16 Unknown Hyposegmented Neuts Not Reportable 11/07/16 Unknown Hypogranular Neuts Not Reportable 11/07/16 Unknown Hypersegmented Polys TNR 10/17/16 07:08 Smudge Cells Not Reportable 11/07/16 Unknown Toxic Granulation Not Reportable 11/07/16 Unknown Toxic Vacuolation Not Reportable 11/07/16 Unknown Dohle Bodies Not Reportable 11/07/16 Unknown Pelger-Huet Anomaly Not Reportable 11/07/16 Unknown [place] Rods Not Reportable 11/07/16 Unknown Platelet Estimate Appears normal 11/07/16 Unknown Clumped Platelets Not Reportable 11/07/16 Unknown Plt Clumps, EDTA Not Reportable 11/07/16 Unknown Large Platelets Not Reportable 11/07/16 Unknown Giant Platelets Not Reportable 11/07/16 Unknown Platelet Satelliting Not Reportable 11/07/16 Unknown Plt Morphology Comment Not Reportable 11/07/16 Unknown RBC Morphology Not Reportable 11/07/16 Unknown Dimorphic RBCs Not Reportable 11/07/16 Unknown Polychromasia 1+ 11/07/16 Unknown Hypochromasia Not Reportable 11/07/16 Unknown Poikilocytosis Not Reportable 11/07/16 Unknown Basophilic Stippling TNR 10/17/16 07:08 Anisocytosis Not Reportable 11/07/16 Unknown Microcytosis Not Reportable 11/07/16 Unknown Macrocytosis Not Reportable 11/07/16 Unknown Spherocytes Not Reportable 11/07/16 Unknown Pappenheimer Bodies Not Reportable 11/07/16 Unknown Sickle Cells Not Reportable 11/07/16 Unknown Target Cells Not Reportable 11/07/16 Unknown Tear Drop Cells Not Reportable 11/07/16 Unknown Ovalocytes Not Reportable 11/07/16 Unknown Stomatocytes Few 11/03/16 00:05 Helmet Cells Not Reportable 11/07/16 Unknown Higgins-[place] Bodies Not Reportable 11/07/16 Unknown [place] Rings Not Reportable 11/07/16 Unknown Jeannette Cells Not Reportable 11/07/16 Unknown Bite Cells Not Reportable 11/07/16 Unknown Crenated Cell Not Reportable 11/07/16 Unknown Elliptocytes Not Reportable 11/07/16 Unknown Acanthocytes (Spur) Not Reportable 11/07/16 Unknown Rouleaux Not Reportable 11/07/16 Unknown Hemoglobin C Crystals Not Reportable 11/07/16 Unknown Schistocytes Not Reportable 11/07/16 Unknown Malaria parasites Not Reportable 11/07/16 Unknown David Bodies Not Reportable 11/07/16 Unknown Hem Pathologist Commnt No 11/07/16 Unknown PT 16.4 Sec. (12.2-14.9) H 10/17/16 16:07 INR 1.33 (0.87-1.13) H 10/17/16 16:07 APTT 38.8 Sec. (24.2-36.6) H 10/17/16 16:07 Heparin Anti-Xa Level 0.90 U.I./ml (0.3-0.7) H 11/07/16 Unknown POC ABG pH 7.394 (7.35-7.45) 11/04/16 12:58 POC ABG pCO2 33.7 (35-45) L 11/04/16 12:58 POC ABG pO2 60 (80-105) L 11/04/16 12:58 POC ABG HCO3 20.6 11/04/16 12:58 POC ABG Total CO2 22 11/04/16 12:58 POC ABG O2 Sat 91 11/04/16 12:58 POC ABG Base Excess -4 11/04/16 12:58 VBG pH 7.020 (7.320-7.420) L* 10/13/16 04:22 FiO2 25 % 11/04/16 12:58 Sodium 138 mmol/L (137-145) 11/07/16 Unknown Potassium 4.2 mmol/L (3.6-5.0) 11/07/16 Unknown Chloride 106.0 mmol/L (98-107) 11/07/16 Unknown Carbon Dioxide 19 mmol/L (22-30) L 11/07/16 Unknown Anion Gap 17 mmol/L 11/07/16 Unknown BUN 8 mg/dL (7-17) 11/07/16 Unknown Creatinine 0.7 mg/dL (0.7-1.2) 11/07/16 Unknown Estimated GFR > 60 ml/min 11/07/16 Unknown BUN/Creatinine Ratio 11.42 % 11/07/16 Unknown Glucose 106 mg/dL (65-100) H 11/07/16 Unknown POC Glucose 104 (70-105) 11/07/16 05:51 Osmolality 332 Mosm/kg 10/14/16 07:03 Lactic Acid 1.8 mmol/L (0.7-2.0) 10/14/16 07:03 Calcium 6.9 mg/dL (8.4-10.2) L 11/07/16 Unknown Phosphorus 2.7 mg/dL (2.5-4.5) D 10/21/16 Unknown Magnesium 1.2 mg/dL (1.7-2.3) L 11/03/16 00:05 Total Bilirubin 0.3 mg/dL (0.1-1.2) 11/05/16 02:30 AST 9 units/L (5-40) 11/05/16 02:30 ALT 11 units/L (7-56) 11/05/16 02:30 Alkaline Phosphatase 119 units/L (35-129) 11/05/16 02:30 Ammonia 35.0 umol/L (25-60) 10/13/16 05:40 Total Creatine Kinase 107 units/L (30-135) 10/13/16 04:22 CK-MB (CK-2) 3.1 ng/mL (0.0-4.0) 10/13/16 04:22 CK-MB (CK-2) Rel Index 2.8 (0-4) 10/13/16 04:22 Troponin T < 0.010 ng/mL (0.00-0.029) 10/14/16 18:55 C-Reactive Protein 10.50 mg/dL (0.00-1.30) H 10/13/16 16:14 Total Protein 6.7 g/dL (6.3-8.2) 11/05/16 02:30 Albumin 1.9 g/dL (3.9-5) L 11/05/16 02:30 Albumin/Globulin Ratio 0.4 % 11/05/16 02:30 Amylase 57 units/L (27-131) 10/26/16 20:00 Lipase 58 units/L (13-60) 10/26/16 20:00 Vitamin B12 976.8 pg/mL (211-911) H 10/22/16 10:25 TSH 0.162 mlU/mL (0.270-4.200) L 10/22/16 14:50 Free T4 0.77 ng/dL (0.76-1.46) 10/22/16 14:50 Urine Color Yellow (Yellow) 10/15/16 11:05 Urine Turbidity Cloudy (Clear) 10/15/16 11:05 Urine pH 5.0 (5.0-7.0) 10/15/16 11:05 Ur Specific [place] 1.009 (1.003-1.030) 10/15/16 11:05 Urine Protein 30 mg/dl mg/dL (Negative) 10/15/16 11:05 Urine Glucose (UA) 150 mg/dL (Negative) 10/15/16 11:05 Urine Ketones Neg mg/dL (Negative) 10/15/16 11:05 Urine Blood Lg (Negative) 10/15/16 11:05 Urine Nitrite Neg (Negative) 10/15/16 11:05 Urine Bilirubin Neg (Negative) 10/15/16 11:05 Urine Urobilinogen < 2.0 mg/dL (<2.0) 10/15/16 11:05 Ur Leukocyte Esterase Neg (Negative) 10/15/16 11:05 Urine WBC (Auto) 7.0 /HPF (0.0-6.0) H 10/15/16 11:05 Urine RBC (Auto) 7.0 /HPF (0.0-6.0) 10/15/16 11:05 U Epithel Cells (Auto) 1.0 /HPF (0-13.0) 10/15/16 11:05 Urine Mucus Few /HPF 10/15/16 11:05 Urine Yeast (Budding) 2+ /HPF 10/15/16 11:05 Urine Osmolality 487 Mosm/kg 10/13/16 Unknown Urine Creatinine < 4.2 mg/dL (0.1-20.0) 10/13/16 Unknown Protein/Creatinin Ratio 0.00 10/13/16 Unknown Urine Sodium 10 mEq/L 10/13/16 Unknown Urine Potassium 1.00 mEq/L 10/13/16 Unknown Urine Chloride 10.0 mEq/L (110-250) L 10/13/16 Unknown Urine Total Protein < 4 mg/dL (5-11.8) L 10/13/16 Unknown Vancomycin Trough 17.7 ug/mL (5.0-20.0) 10/22/16 10:25 Ketones 107.3 mg/dL (0.2-2.8) H 10/13/16 04:22 Blood Type A POSITIVE 11/03/16 18:01 Antibody Screen Negative 11/03/16 18:01 Crossmatch See Detail 11/03/16 18:01
[2016-11-07 12:25] LABS: ISTAT Base Excess -7; ISTAT HCO3 18.7; ISTAT PCO2 35.9 (35-45); ISTAT PH 7.324 (7.35-7.45); ISTAT PO2 85 (80-105); ISTAT SO2 96; ISTAT TCO2 20
[2016-11-07] MEDS: HEPARIN/ 0.45% NACL-25,000 UNIT/500 ML 25,000 UNITS/500 ML BAG IV SCH (12:50)
--- NOTE | 2016-11-07 13:20 | XRay Report ---
AP chest x-ray. Findings: Since the previous study on November 04, prominent area of air space disease has developed in the right lower lobe. Left lung remains clear. The tracheostomy tube and right PICC line are unchanged in position. Impression: Interval development of right lower lobe infiltrate.
--- NOTE | 2016-11-07 17:05 | Progress Note ---
Assessment and Plan Patient was evaluated earlier today on sedation and mechanical ventilation. She status post revascularization and a subsequent right below the knee amputation. Check her bandages in the next 24-48 hours. She needs a heel protector boot replaced on her left lower extremity. - Patient Problems (1) Ischemia of right lower extremity Current Visit: Yes Status: Acute (2) DKA (diabetic ketoacidoses) Current Visit: Yes Status: Acute Qualifiers: Diabetes mellitus type: D Diabetes mellitus complication detail: D (3) Acute on chronic renal failure Current Visit: Yes Status: Acute (4) Altered mental status Current Visit: Yes Status: Acute Qualifiers: Altered mental status type: A Coma depth: C Coma timing: C (5) Diabetes Current Visit: No Status: Chronic Qualifiers: Diabetes mellitus type: D Diabetes mellitus complication status: D Diabetes mellitus complication detail: D Diabetic retinopathy severity: D Proliferative retinopathy type: P Diabetes mellitus macular edema: D Diabetes mellitus detention insulin use: D Laterality: L Chronic kidney disease stage: C (6) Dyslipidemia Current Visit: No Status: Chronic (7) Hypertension Current Visit: No Status: Chronic Qualifiers: Hypertension type: H Subjective Date of service: 11/07/16 Principal diagnosis: respiratory failure on mechanical ventilatory support, DKA Interval history: Patient was sleeping. She was arousable to verbal stimulus, but did not follow commands. Objective - Constitutional Vitals: Vital Signs - 12hr 11/07/16 11/07/16 11/07/16 06:00 06:27 07:00 Temperature Pulse Rate 89 89 88 Pulse Rate [ From Monitor] Respiratory 17 17 Rate Blood Pressure 131/64 127/63 125/62 O2 Sat by Pulse 98 96 Oximetry O2 Sat by Pulse Oximetry [ Assessment] 11/07/16 11/07/16 11/07/16 08:00 09:00 10:01 Temperature 98.4 F Pulse Rate 87 92 H 86 Pulse Rate [ 86 From Monitor] Respiratory 18 17 16 Rate Blood Pressure 122/54 128/62 147/54 O2 Sat by Pulse 99 98 97 Oximetry O2 Sat by Pulse 100 Oximetry [ Assessment] 11/07/16 11/07/16 11/07/16 11:00 12:00 13:01 Temperature 98.3 F Pulse Rate 83 89 96 H Pulse Rate [ From Monitor] Respiratory 16 15 19 Rate Blood Pressure 117/55 115/38 102/82 O2 Sat by Pulse 99 100 100 Oximetry O2 Sat by Pulse Oximetry [ Assessment] 11/07/16 16:00 Temperature 98.3 F Pulse Rate Pulse Rate [ From Monitor] Respiratory Rate Blood Pressure O2 Sat by Pulse Oximetry O2 Sat by Pulse Oximetry [ Assessment] General appearance: Present: no acute distress - EENT Eyes: EOM intact ENT: hearing intact - Respiratory Respiratory effort: other (on mechanical ventilation through trach) Extremity abnormal: other (bandages to right below the knee amputation in place , knee immobilizer in place) - Psychiatric Psychiatric: other (patient is drowsy) - Labs CBC & Chem 7: 11/07/16 Unknown 11/07/16 Unknown Labs: Abnormal lab results 11/06/16 11/06/16 11/06/16 Range/Units 11:45 18:23 22:07 WBC (4.5-11.0) K/mm3 RBC (3.65-5.03) M/mm3 Hgb (10.1-14.3) gm/dl Hct (30.3-42.9) % RDW (13.2-15.2) % Seg Neuts % (Manual) (40.0-70.0) % Lymphocytes % (Manual) (13.4-35.0) % Seg Neutrophils # Man (1.8-7.7) K/mm3 Lymphocytes # (Manual) (1.2-5.4) K/mm3 Heparin Anti-Xa Level 0.80 H (0.3-0.7) U.I./ml POC ABG pH (7.35-7.45) Carbon Dioxide (22-30) mmol/L Glucose (65-100) mg/dL POC Glucose 141 H 255 H (70-105) Calcium (8.4-10.2) mg/dL 11/06/16 11/07/16 11/07/16 Range/Units 23:07 11:41 12:17 WBC (4.5-11.0) K/mm3 RBC (3.65-5.03) M/mm3 Hgb (10.1-14.3) gm/dl Hct (30.3-42.9) % RDW (13.2-15.2) % Seg Neuts % (Manual) (40.0-70.0) % Lymphocytes % (Manual) (13.4-35.0) % Seg Neutrophils # Man (1.8-7.7) K/mm3 Lymphocytes # (Manual) (1.2-5.4) K/mm3 Heparin Anti-Xa Level (0.3-0.7) U.I./ml POC ABG pH 7.324 L (7.35-7.45) Carbon Dioxide (22-30) mmol/L Glucose (65-100) mg/dL POC Glucose 183 H 132 H (70-105) Calcium (8.4-10.2) mg/dL 11/07/16 11/07/16 11/07/16 Range/Units Unknown Unknown Unknown WBC 12.3 H (4.5-11.0) K/mm3 RBC 2.96 L (3.65-5.03) M/mm3 Hgb 9.1 L (10.1-14.3) gm/dl Hct 27.9 L (30.3-42.9) % RDW 16.8 H (13.2-15.2) % Seg Neuts % (Manual) 80.0 H (40.0-70.0) % Lymphocytes % (Manual) 7.0 L (13.4-35.0) % Seg Neutrophils # Man 9.8 H (1.8-7.7) K/mm3 Lymphocytes # (Manual) 0.9 L (1.2-5.4) K/mm3 Heparin Anti-Xa Level 0.90 H (0.3-0.7) U.I./ml POC ABG pH (7.35-7.45) Carbon Dioxide 19 L (22-30) mmol/L Glucose 106 H (65-100) mg/dL POC Glucose (70-105) Calcium 6.9 L (8.4-10.2) mg/dL
--- NOTE | 2016-11-07 19:52 | Progress Note ---
Subjective Date of service: 11/07/16 Principal diagnosis: respiratory failure on mechanical ventilatory support, DKA Interval history: AWAKE. Fever resolved.. S/P surgery. Fever resolving. Vital signs - Temp 98 CHEST - GOOD [employer] ENTRY CVS - S1S2 ABD - BS_ LABS See lab section. ASSESSMENT 1. Sepsis 2. dka 3. resp failure 4. htn 5. clostridium difficile colitis 6. bilateral pneumonia 6. RIGHT LEG GANGRENE s/p amputation RECOMMENDATION 1. CONTINUE IV ABX Objective - Constitutional Vitals: Vital Signs Temp Pulse Resp BP Pulse Ox 98.3 F 99 H 17 110/62 100 11/07/16 16:00 11/07/16 19:01 11/07/16 19:01 11/07/16 19:01 11/07/16 19:01 Temperature -Last 24 Hours Temperature 98.3 F Temperature 98.3 F Temperature 98.4 F Temperature 98.6 F Temperature 98.9 F Temperature 98.8 F Temperature 98.8 F - Labs CBC & Chem 7: 11/07/16 Unknown 11/07/16 Unknown Labs: Abnormal lab results 11/06/16 11/06/16 11/07/16 Range/Units 22:07 23:07 11:41 WBC (4.5-11.0) K/mm3 RBC (3.65-5.03) M/mm3 Hgb (10.1-14.3) gm/dl Hct (30.3-42.9) % RDW (13.2-15.2) % Seg Neuts % (Manual) (40.0-70.0) % Lymphocytes % (Manual) (13.4-35.0) % Seg Neutrophils # Man (1.8-7.7) K/mm3 Lymphocytes # (Manual) (1.2-5.4) K/mm3 Heparin Anti-Xa Level 0.80 H (0.3-0.7) U.I./ml POC ABG pH (7.35-7.45) Carbon Dioxide (22-30) mmol/L Glucose (65-100) mg/dL POC Glucose 183 H 132 H (70-105) Calcium (8.4-10.2) mg/dL 11/07/16 11/07/16 11/07/16 Range/Units 12:17 17:05 17:58 WBC (4.5-11.0) K/mm3 RBC (3.65-5.03) M/mm3 Hgb (10.1-14.3) gm/dl Hct (30.3-42.9) % RDW (13.2-15.2) % Seg Neuts % (Manual) (40.0-70.0) % Lymphocytes % (Manual) (13.4-35.0) % Seg Neutrophils # Man (1.8-7.7) K/mm3 Lymphocytes # (Manual) (1.2-5.4) K/mm3 Heparin Anti-Xa Level 0.87 H (0.3-0.7) U.I./ml POC ABG pH 7.324 L (7.35-7.45) Carbon Dioxide (22-30) mmol/L Glucose (65-100) mg/dL POC Glucose 158 H (70-105) Calcium (8.4-10.2) mg/dL 11/07/16 11/07/16 11/07/16 Range/Units Unknown Unknown Unknown WBC 12.3 H (4.5-11.0) K/mm3 RBC 2.96 L (3.65-5.03) M/mm3 Hgb 9.1 L (10.1-14.3) gm/dl Hct 27.9 L (30.3-42.9) % RDW 16.8 H (13.2-15.2) % Seg Neuts % (Manual) 80.0 H (40.0-70.0) % Lymphocytes % (Manual) 7.0 L (13.4-35.0) % Seg Neutrophils # Man 9.8 H (1.8-7.7) K/mm3 Lymphocytes # (Manual) 0.9 L (1.2-5.4) K/mm3 Heparin Anti-Xa Level 0.90 H (0.3-0.7) U.I./ml POC ABG pH (7.35-7.45) Carbon Dioxide 19 L (22-30) mmol/L Glucose 106 H (65-100) mg/dL POC Glucose (70-105) Calcium 6.9 L (8.4-10.2) mg/dL
[2016-11-08] MEDS: fentaNYL DRIP Premix 2,000 MCG/100 ML BAG IV SCH ×2 (02:58→16:01)
[2016-11-08] MEDS: REGLAN IV SCH ×6 (03:16→23:40)
[2016-11-08] MEDS: LOPRESSOR FEEDTUBE SCH ×3 (06:04→21:04)
[2016-11-08] MEDS: CLEOCIN 600 MG/50 mL 600 MG/50 ML BAG IV SCH ×3 (06:04→21:05)
[2016-11-08 06:45] LABS: Anion Gap 15 mmol/L; BUN/Creatinine Ratio 12.85; Blood Urea Nitrogen 9 mg/dL (7-17); Calcium 7.1 mg/dL (8.4-10.2); Carbon Dioxide 19 mmol/L (22-30); Chloride 105.9 mmol/L (98-107); Glucose 192 mg/dL (65-100); Potassium 3.8 mmol/L (3.6-5.0); Sodium 136 mmol/L (137-145)
[2016-11-08 06:47] LABS: Hematocrit 28.8 % (30.3-42.9); Hemoglobin 9.2 gm/dl (10.1-14.3); Mean Corpuscular HGB Conc 32 % (30-34); Mean Corpuscular Hemoglobin 30 pg (28-32); Mean Corpuscular Volume 95 fl (79-97); Platelet Count 270 K/mm3 (140-440); Red Blood Count 3.04 M/mm3 (3.65-5.03); Red Cell Distribution Width 16.6 % (13.2-15.2); White Blood Count 12.4 K/mm3 (4.5-11.0)
[2016-11-08] MEDS: VANCOMYCIN VIAL 1,500 MG in NACL 0.9% 500 ML 500 ML IV SCH ×2 (09:19→21:03)
[2016-11-08 10:08] LABS: Blastocytes % (Manual) 0 %
[2016-11-08 10:09] LABS: Diff Status Complete; Polychromasia 1+
--- NOTE | 2016-11-08 11:12 | Progress Note ---
Assessment and Plan - Patient Problems (1) Acute respiratory failure with hypercapnia Current Visit: Yes Status: Acute Plan to address problem: - continue aspiration precautions / VAP bundles - continue bronchodilators and pulmonary toilet - wean oxygen to keep sats > 94% - reduce sedation and allow spontaneous breaths - PSV trials once over-breathing and maintaining adequate minute ventilation ( still riding set rate) (2) Altered mental status Current Visit: Yes Status: Acute Qualifiers: Altered mental status type: A Coma depth: C Coma timing: C Plan to address problem: - no active seizures - following clinically - seen by neurology and will follow their recommendations - no seizures on EEG - more appropriate clinically (3) LUCY (acute kidney injury) Current Visit: Yes Status: Acute Plan to address problem: - resolved - follow I's & O's (4) DKA (diabetic ketoacidoses) Current Visit: Yes Status: Acute Qualifiers: Diabetes mellitus type: D Diabetes mellitus complication detail: D Plan to address problem: - resolved - continue SSI (5) Sepsis Current Visit: No Status: Acute Qualifiers: Sepsis type: S Plan to address problem: - continue anti-infectives per ID recs - follow clinically (improved) - trend lactate and CRP prn - improving numbers post amputation (6) Discharge planning issues Current Visit: No Status: Acute Plan to address problem: ...hopefully can begin weaning in am ...remains critically ill on life sustaining treatments including MVS and at high risk for further deterioration including ...33' CCT Subjective Date of service: 11/08/16 Principal diagnosis: respiratory failure on mechanical ventilatory support, DKA Interval history: Seen and examined at bedside; 24 hour events reviewed; nursing and respiratory care staff consulted; no adverse overnight events reported to me; resting peacefully in bed; weaning off sedation; nods head no to pain question; no gross bleeding Objective Vital Signs - 12hr 11/07/16 11/08/16 11/08/16 23:55 00:00 00:07 Temperature 100.6 F H Pulse Rate 105 H 100 H Pulse Rate [ 103 H Apical] Respiratory 18 18 Rate Blood Pressure 155/56 146/62 O2 Sat by Pulse 100 100 100 Oximetry 11/08/16 11/08/16 11/08/16 01:00 02:00 03:00 Temperature Pulse Rate 105 H 103 H 102 H Pulse Rate [ Apical] Respiratory 15 19 21 Rate Blood Pressure 155/56 150/66 148/77 O2 Sat by Pulse 98 100 97 Oximetry 11/08/16 11/08/16 11/08/16 04:00 04:22 05:00 Temperature 100.0 F H Pulse Rate 104 H 100 H Pulse Rate [ 99 H Apical] Respiratory 18 20 17 Rate Blood Pressure 153/76 143/69 O2 Sat by Pulse 97 99 96 Oximetry 11/08/16 11/08/16 11/08/16 06:00 06:04 06:14 Temperature Pulse Rate 100 H 100 H 99 H Pulse Rate [ Apical] Respiratory 14 Rate Blood Pressure 132/68 132/68 144/65 O2 Sat by Pulse 97 100 Oximetry 11/08/16 11/08/16 11/08/16 07:00 08:00 08:32 Temperature 100 F H Pulse Rate 92 H 82 82 Pulse Rate [ Apical] Respiratory 16 16 Rate Blood Pressure 121/61 112/57 112/59 O2 Sat by Pulse 96 98 98 Oximetry 11/08/16 11/08/16 09:00 10:00 Temperature Pulse Rate 84 77 Pulse Rate [ 81 Apical] Respiratory 16 16 Rate Blood Pressure 122/65 124/60 O2 Sat by Pulse 99 100 Oximetry Constitutional: no acute distress, other (? delirium / dementia element) Eyes: non-icteric ENT: oropharynx moist Neck: supple, no lymphadenopathy Effort: mildly labored Ascultation: Bilateral: clear, diminished breath sounds Cardiovascular: regular rate and rhythm Gastrointestinal: normoactive bowel sounds, soft, non-tender, non-distended Integumentary: normal Extremities: no cyanosis, no edema, no ischemia or petechiae, other (s/p right BKA) Neurologic: non-focal exam (grossly), pupils equal and round, other (sedated) Psychiatric: other (sedated) CBC and BMP: 11/09/16 05:30 11/09/16 05:30 ABG, PT/INR, D-dimer: ABG POC ABG pH 7.324 (7.35-7.45) L 11/07/16 12:17 POC ABG pCO2 35.9 (35-45) 11/07/16 12:17 POC ABG pO2 85 (80-105) 11/07/16 12:17 POC ABG HCO3 18.7 11/07/16 12:17 POC ABG Total CO2 20 03/22/17 12:17 POC ABG O2 Sat 96 11/07/16 12:17 PT/INR, D-dimer PT 16.4 Sec. (12.2-14.9) H 10/17/16 16:07 INR 1.33 (0.87-1.13) H 10/17/16 16:07 Abnormal lab findings: Abnormal Labs 10/13/16 10/13/16 10/13/16 06:38 06:38 07:23 WBC RBC Hgb Hct MCV RDW Plt Count Lymph % (Auto) [place] % (Auto) [place] # Seg Neutrophils % Seg Neuts % (Manual) Lymphocytes % (Manual) Monocytes % (Manual) Basophils % (Manual) Nucleated RBC % Seg Neutrophils # Seg Neutrophils # Man Lymphocytes # (Manual) Monocytes # (Manual) Eosinophils # (Manual) Basophils # (Manual) PT INR APTT Heparin Anti-Xa Level POC ABG pH POC ABG pCO2 POC ABG pO2 Sodium Potassium 6.2 H* Chloride Carbon Dioxide 8 L* BUN 85 H Creatinine 2.8 H Glucose 602 H* POC Glucose 495 H Calcium 7.9 L Phosphorus 6.9 H D Magnesium 3.0 H AST Alkaline Phosphatase C-Reactive Protein Total Protein Albumin Lipase Vitamin B12 TSH Urine WBC (Auto) Urine Chloride Urine Total Protein Crossmatch 10/13/16 10/13/16 10/13/16 08:49 08:55 10:12 WBC RBC Hgb Hct MCV RDW Plt Count Lymph % (Auto) [place] % (Auto) [place] # Seg Neutrophils % Seg Neuts % (Manual) Lymphocytes % (Manual) Monocytes % (Manual) Basophils % (Manual) Nucleated RBC % Seg Neutrophils # Seg Neutrophils # Man Lymphocytes # (Manual) Monocytes # (Manual) Eosinophils # (Manual) Basophils # (Manual) PT INR APTT Heparin Anti-Xa Level POC ABG pH POC ABG pCO2 POC ABG pO2 Sodium Potassium 5.6 H Chloride Carbon Dioxide 11 L BUN 77 H Creatinine 2.7 H Glucose 457 H POC Glucose > 500 H 424 H Calcium 8.0 L Phosphorus Magnesium AST Alkaline Phosphatase C-Reactive Protein Total Protein Albumin Lipase Vitamin B12 TSH Urine WBC (Auto) Urine Chloride Urine Total Protein Crossmatch 10/13/16 10/13/16 10/13/16 10:44 11:22 12:20 WBC RBC Hgb Hct MCV RDW Plt Count Lymph % (Auto) [place] % (Auto) [place] # Seg Neutrophils % Seg Neuts % (Manual) Lymphocytes % (Manual) Monocytes % (Manual) Basophils % (Manual) Nucleated RBC % Seg Neutrophils # Seg Neutrophils # Man Lymphocytes # (Manual) Monocytes # (Manual) Eosinophils # (Manual) Basophils # (Manual) PT INR APTT Heparin Anti-Xa Level POC ABG pH POC ABG pCO2 POC ABG pO2 Sodium Potassium 5.4 H Chloride Carbon Dioxide 14 L BUN 72 H Creatinine 2.6 H Glucose 383 H POC Glucose 391 H 313 H Calcium 8.2 L Phosphorus Magnesium AST Alkaline Phosphatase C-Reactive Protein Total Protein Albumin Lipase Vitamin B12 TSH Urine WBC (Auto) Urine Chloride Urine Total Protein Crossmatch 10/13/16 10/13/16 10/13/16 13:32 14:44 15:57 WBC RBC Hgb Hct MCV RDW Plt Count Lymph % (Auto) [place] % (Auto) [place] # Seg Neutrophils % Seg Neuts % (Manual) Lymphocytes % (Manual) Monocytes % (Manual) Basophils % (Manual) Nucleated RBC % Seg Neutrophils # Seg Neutrophils # Man Lymphocytes # (Manual) Monocytes # (Manual) Eosinophils # (Manual) Basophils # (Manual) PT INR APTT Heparin Anti-Xa Level POC ABG pH POC ABG pCO2 POC ABG pO2 Sodium Potassium Chloride Carbon Dioxide BUN Creatinine Glucose POC Glucose 296 H 210 H 190 H Calcium Phosphorus Magnesium AST Alkaline Phosphatase C-Reactive Protein Total Protein Albumin Lipase Vitamin B12 TSH Urine WBC (Auto) Urine Chloride Urine Total Protein Crossmatch 10/13/16 10/13/16 10/13/16 16:14 16:14 17:17 WBC RBC Hgb Hct MCV RDW Plt Count Lymph % (Auto) [place] % (Auto) [place] # Seg Neutrophils % Seg Neuts % (Manual) Lymphocytes % (Manual) Monocytes % (Manual) Basophils % (Manual) Nucleated RBC % Seg Neutrophils # Seg Neutrophils # Man Lymphocytes # (Manual) Monocytes # (Manual) Eosinophils # (Manual) Basophils # (Manual) PT INR APTT Heparin Anti-Xa Level POC ABG pH POC ABG pCO2 POC ABG pO2 Sodium Potassium Chloride Carbon Dioxide 17 L BUN 58 H Creatinine 1.8 H Glucose 172 H POC Glucose 193 H Calcium 7.7 L Phosphorus Magnesium AST Alkaline Phosphatase C-Reactive Protein 10.50 H Total Protein Albumin Lipase Vitamin B12 TSH Urine WBC (Auto) Urine Chloride Urine Total Protein Crossmatch 10/13/16 10/13/16 10/13/16 17:55 18:32 19:41 WBC RBC Hgb Hct MCV RDW Plt Count Lymph % (Auto) [place] % (Auto) [place] # Seg Neutrophils % Seg Neuts % (Manual) Lymphocytes % (Manual) Monocytes % (Manual) Basophils % (Manual) Nucleated RBC % Seg Neutrophils # Seg Neutrophils # Man Lymphocytes # (Manual) Monocytes # (Manual) Eosinophils # (Manual) Basophils # (Manual) PT INR APTT Heparin Anti-Xa Level POC ABG pH POC ABG pCO2 30.6 L POC ABG pO2 218 H Sodium Potassium Chloride Carbon Dioxide BUN Creatinine Glucose POC Glucose 192 H 177 H Calcium Phosphorus Magnesium AST Alkaline Phosphatase C-Reactive Protein Total Protein Albumin Lipase Vitamin B12 TSH Urine WBC (Auto) Urine Chloride Urine Total Protein Crossmatch 10/13/16 10/13/16 10/13/16 20:54 22:07 23:13 WBC RBC Hgb Hct MCV RDW Plt Count Lymph % (Auto) [place] % (Auto) [place] # Seg Neutrophils % Seg Neuts % (Manual) Lymphocytes % (Manual) Monocytes % (Manual) Basophils % (Manual) Nucleated RBC % Seg Neutrophils # Seg Neutrophils # Man Lymphocytes # (Manual) Monocytes # (Manual) Eosinophils # (Manual) Basophils # (Manual) PT INR APTT Heparin Anti-Xa Level POC ABG pH POC ABG pCO2 POC ABG pO2 Sodium Potassium Chloride Carbon Dioxide BUN Creatinine Glucose POC Glucose 178 H 160 H 168 H Calcium Phosphorus Magnesium AST Alkaline Phosphatase C-Reactive Protein Total Protein Albumin Lipase Vitamin B12 TSH Urine WBC (Auto) Urine Chloride Urine Total Protein Crossmatch 10/13/16 10/13/16 10/14/16 23:25 Unknown 00:21 WBC RBC Hgb Hct MCV RDW Plt Count Lymph % (Auto) [place] % (Auto) [place] # Seg Neutrophils % Seg Neuts % (Manual) Lymphocytes % (Manual) Monocytes % (Manual) Basophils % (Manual) Nucleated RBC % Seg Neutrophils # Seg Neutrophils # Man Lymphocytes # (Manual) Monocytes # (Manual) Eosinophils # (Manual) Basophils # (Manual) PT INR APTT Heparin Anti-Xa Level POC ABG pH POC ABG pCO2 POC ABG pO2 Sodium 148 H Potassium Chloride 114.6 H Carbon Dioxide 17 L BUN 56 H Creatinine 1.6 H Glucose 151 H POC Glucose 171 H Calcium 7.8 L Phosphorus Magnesium AST Alkaline Phosphatase C-Reactive Protein Total Protein Albumin Lipase Vitamin B12 TSH Urine WBC (Auto) Urine Chloride 10.0 L Urine Total Protein < 4 L Crossmatch 10/14/16 10/14/16 10/14/16 01:22 02:29 03:30 WBC RBC Hgb Hct MCV RDW Plt Count Lymph % (Auto) [place] % (Auto) [place] # Seg Neutrophils % Seg Neuts % (Manual) Lymphocytes % (Manual) Monocytes % (Manual) Basophils % (Manual) Nucleated RBC % Seg Neutrophils # Seg Neutrophils # Man Lymphocytes # (Manual) Monocytes # (Manual) Eosinophils # (Manual) Basophils # (Manual) PT INR APTT Heparin Anti-Xa Level POC ABG pH POC ABG pCO2 POC ABG pO2 Sodium Potassium Chloride Carbon Dioxide BUN Creatinine Glucose POC Glucose 144 H 136 H 143 H Calcium Phosphorus Magnesium AST Alkaline Phosphatase C-Reactive Protein Total Protein Albumin Lipase Vitamin B12 TSH Urine WBC (Auto) Urine Chloride Urine Total Protein Crossmatch 10/14/16 10/14/16 10/14/16 04:28 05:16 05:44 WBC RBC Hgb Hct MCV RDW Plt Count Lymph % (Auto) [place] % (Auto) [place] # Seg Neutrophils % Seg Neuts % (Manual) Lymphocytes % (Manual) Monocytes % (Manual) Basophils % (Manual) Nucleated RBC % Seg Neutrophils # Seg Neutrophils # Man Lymphocytes # (Manual) Monocytes # (Manual) Eosinophils # (Manual) Basophils # (Manual) PT INR APTT Heparin Anti-Xa Level POC ABG pH POC ABG pCO2 28.2 L POC ABG pO2 125 H Sodium Potassium Chloride Carbon Dioxide BUN Creatinine Glucose POC Glucose 133 H 160 H Calcium Phosphorus Magnesium AST Alkaline Phosphatase C-Reactive Protein Total Protein Albumin Lipase Vitamin B12 TSH Urine WBC (Auto) Urine Chloride Urine Total Protein Crossmatch 10/14/16 10/14/16 10/14/16 06:12 06:45 07:03 WBC RBC Hgb Hct MCV RDW Plt Count Lymph % (Auto) [place] % (Auto) [place] # Seg Neutrophils % Seg Neuts % (Manual) Lymphocytes % (Manual) Monocytes % (Manual) Basophils % (Manual) Nucleated RBC % Seg Neutrophils # Seg Neutrophils # Man Lymphocytes # (Manual) Monocytes # (Manual) Eosinophils # (Manual) Basophils # (Manual) PT INR APTT Heparin Anti-Xa Level POC ABG pH POC ABG pCO2 POC ABG pO2 Sodium 149 H Potassium Chloride 115.4 H Carbon Dioxide 17 L BUN 45 H Creatinine 1.5 H Glucose 139 H POC Glucose 149 H Calcium 7.4 L Phosphorus 1.0 L D Magnesium AST Alkaline Phosphatase C-Reactive Protein Total Protein Albumin Lipase Vitamin B12 TSH Urine WBC (Auto) Urine Chloride Urine Total Protein Crossmatch 10/14/16 10/14/16 10/14/16 07:03 08:02 09:16 WBC RBC Hgb Hct MCV RDW Plt Count Lymph % (Auto) [place] % (Auto) [place] # Seg Neutrophils % Seg Neuts % (Manual) Lymphocytes % (Manual) Monocytes % (Manual) Basophils % (Manual) Nucleated RBC % Seg Neutrophils # Seg Neutrophils # Man Lymphocytes # (Manual) Monocytes # (Manual) Eosinophils # (Manual) Basophils # (Manual) PT INR APTT Heparin Anti-Xa Level POC ABG pH POC ABG pCO2 POC ABG pO2 Sodium Potassium Chloride Carbon Dioxide BUN Creatinine Glucose POC Glucose 156 H 158 H Calcium Phosphorus Magnesium AST Alkaline Phosphatase C-Reactive Protein Total Protein Albumin Lipase 738 H Vitamin B12 TSH Urine WBC (Auto) Urine Chloride Urine Total Protein Crossmatch 10/14/16 10/14/16 10/14/16 10:26 11:03 11:57 WBC RBC Hgb Hct MCV RDW Plt Count Lymph % (Auto) [place] % (Auto) [place] # Seg Neutrophils % Seg Neuts % (Manual) Lymphocytes % (Manual) Monocytes % (Manual) Basophils % (Manual) Nucleated RBC % Seg Neutrophils # Seg Neutrophils # Man Lymphocytes # (Manual) Monocytes # (Manual) Eosinophils # (Manual) Basophils # (Manual) PT INR APTT Heparin Anti-Xa Level POC ABG pH 7.198 L POC ABG pCO2 47.5 H POC ABG pO2 Sodium Potassium Chloride Carbon Dioxide BUN Creatinine Glucose POC Glucose 174 H 189 H Calcium Phosphorus Magnesium AST Alkaline Phosphatase C-Reactive Protein Total Protein Albumin Lipase Vitamin B12 TSH Urine WBC (Auto) Urine Chloride Urine Total Protein Crossmatch 10/14/16 10/14/16 10/14/16 12:02 12:02 13:11 WBC 13.4 H RBC 3.60 L Hgb Hct MCV 98 H D RDW 13.1 L Plt Count Lymph % (Auto) [place] % (Auto) [place] # Seg Neutrophils % Seg Neuts % (Manual) Lymphocytes % (Manual) Monocytes % (Manual) Basophils % (Manual) Nucleated RBC % Seg Neutrophils # Seg Neutrophils # Man Lymphocytes # (Manual) Monocytes # (Manual) Eosinophils # (Manual) Basophils # (Manual) PT INR APTT Heparin Anti-Xa Level POC ABG pH POC ABG pCO2 POC ABG pO2 Sodium Potassium Chloride 110.7 H Carbon Dioxide 19 L BUN 38 H Creatinine 1.4 H Glucose 182 H POC Glucose 173 H Calcium 7.5 L Phosphorus Magnesium AST Alkaline Phosphatase C-Reactive Protein Total Protein Albumin Lipase Vitamin B12 TSH Urine WBC (Auto) Urine Chloride Urine Total Protein Crossmatch 10/14/16 10/14/16 10/14/16 14:24 15:31 16:36 WBC RBC Hgb Hct MCV RDW Plt Count Lymph % (Auto) [place] % (Auto) [place] # Seg Neutrophils % Seg Neuts % (Manual) Lymphocytes % (Manual) Monocytes % (Manual) Basophils % (Manual) Nucleated RBC % Seg Neutrophils # Seg Neutrophils # Man Lymphocytes # (Manual) Monocytes # (Manual) Eosinophils # (Manual) Basophils # (Manual) PT INR APTT Heparin Anti-Xa Level POC ABG pH POC ABG pCO2 POC ABG pO2 Sodium Potassium Chloride Carbon Dioxide BUN Creatinine Glucose POC Glucose 123 H 124 H 156 H Calcium Phosphorus Magnesium AST Alkaline Phosphatase C-Reactive Protein Total Protein Albumin Lipase Vitamin B12 TSH Urine WBC (Auto) Urine Chloride Urine Total Protein Crossmatch 10/14/16 10/14/16 10/14/16 17:43 19:00 20:08 WBC RBC Hgb Hct MCV RDW Plt Count Lymph % (Auto) [place] % (Auto) [place] # Seg Neutrophils % Seg Neuts % (Manual) Lymphocytes % (Manual) Monocytes % (Manual) Basophils % (Manual) Nucleated RBC % Seg Neutrophils # Seg Neutrophils # Man Lymphocytes # (Manual) Monocytes # (Manual) Eosinophils # (Manual) Basophils # (Manual) PT INR APTT Heparin Anti-Xa Level POC ABG pH POC ABG pCO2 POC ABG pO2 Sodium Potassium Chloride Carbon Dioxide BUN Creatinine Glucose POC Glucose 154 H 123 H 138 H Calcium Phosphorus Magnesium AST Alkaline Phosphatase C-Reactive Protein Total Protein Albumin Lipase Vitamin B12 TSH Urine WBC (Auto) Urine Chloride Urine Total Protein Crossmatch 10/14/16 10/14/16 10/14/16 21:17 22:25 23:37 WBC RBC Hgb Hct MCV RDW Plt Count Lymph % (Auto) [place] % (Auto) [place] # Seg Neutrophils % Seg Neuts % (Manual) Lymphocytes % (Manual) Monocytes % (Manual) Basophils % (Manual) Nucleated RBC % Seg Neutrophils # Seg Neutrophils # Man Lymphocytes # (Manual) Monocytes # (Manual) Eosinophils # (Manual) Basophils # (Manual) PT INR APTT Heparin Anti-Xa Level POC ABG pH POC ABG pCO2 POC ABG pO2 Sodium Potassium Chloride Carbon Dioxide BUN Creatinine Glucose POC Glucose 148 H 132 H 137 H Calcium Phosphorus Magnesium AST Alkaline Phosphatase C-Reactive Protein Total Protein Albumin Lipase Vitamin B12 TSH Urine WBC (Auto) Urine Chloride Urine Total Protein Crossmatch 10/15/16 10/15/16 10/15/16 00:49 01:53 03:06 WBC RBC Hgb Hct MCV RDW Plt Count Lymph % (Auto) [place] % (Auto) [place] # Seg Neutrophils % Seg Neuts % (Manual) Lymphocytes % (Manual) Monocytes % (Manual) Basophils % (Manual) Nucleated RBC % Seg Neutrophils # Seg Neutrophils # Man Lymphocytes # (Manual) Monocytes # (Manual) Eosinophils # (Manual) Basophils # (Manual) PT INR APTT Heparin Anti-Xa Level POC ABG pH POC ABG pCO2 POC ABG pO2 Sodium Potassium Chloride Carbon Dioxide BUN Creatinine Glucose POC Glucose 132 H 134 H 134 H Calcium Phosphorus Magnesium AST Alkaline Phosphatase C-Reactive Protein Total Protein Albumin Lipase Vitamin B12 TSH Urine WBC (Auto) Urine Chloride Urine Total Protein Crossmatch 10/15/16 10/15/16 10/15/16 04:40 04:46 06:21 WBC RBC Hgb Hct MCV RDW Plt Count Lymph % (Auto) [place] % (Auto) [place] # Seg Neutrophils % Seg Neuts % (Manual) Lymphocytes % (Manual) Monocytes % (Manual) Basophils % (Manual) Nucleated RBC % Seg Neutrophils # Seg Neutrophils # Man Lymphocytes # (Manual) Monocytes # (Manual) Eosinophils # (Manual) Basophils # (Manual) PT INR APTT Heparin Anti-Xa Level POC ABG pH POC ABG pCO2 30.7 L POC ABG pO2 108 H Sodium Potassium Chloride 109.0 H Carbon Dioxide 17 L BUN 27 H Creatinine Glucose 124 H POC Glucose 160 H Calcium 7.5 L Phosphorus Magnesium AST 79 H Alkaline Phosphatase C-Reactive Protein Total Protein 5.5 L Albumin 3.0 L Lipase Vitamin B12 TSH Urine WBC (Auto) Urine Chloride Urine Total Protein Crossmatch 10/15/16 10/15/16 10/15/16 07:12 08:01 09:03 WBC RBC Hgb Hct MCV RDW Plt Count Lymph % (Auto) [place] % (Auto) [place] # Seg Neutrophils % Seg Neuts % (Manual) Lymphocytes % (Manual) Monocytes % (Manual) Basophils % (Manual) Nucleated RBC % Seg Neutrophils # Seg Neutrophils # Man Lymphocytes # (Manual) Monocytes # (Manual) Eosinophils # (Manual) Basophils # (Manual) PT INR APTT Heparin Anti-Xa Level POC ABG pH POC ABG pCO2 POC ABG pO2 Sodium Potassium Chloride Carbon Dioxide BUN Creatinine Glucose POC Glucose 179 H 187 H 165 H Calcium Phosphorus Magnesium AST Alkaline Phosphatase C-Reactive Protein Total Protein Albumin Lipase Vitamin B12 TSH Urine WBC (Auto) Urine Chloride Urine Total Protein Crossmatch 10/15/16 10/15/16 10/15/16 10:06 10:06 10:07 WBC 12.1 H RBC 3.01 L Hgb 9.7 L Hct 29.6 L MCV 98 H RDW Plt Count 129 L Lymph % (Auto) [place] % (Auto) [place] # Seg Neutrophils % Seg Neuts % (Manual) Lymphocytes % (Manual) Monocytes % (Manual) Basophils % (Manual) Nucleated RBC % Seg Neutrophils # Seg Neutrophils # Man Lymphocytes # (Manual) Monocytes # (Manual) Eosinophils # (Manual) Basophils # (Manual) PT INR APTT Heparin Anti-Xa Level POC ABG pH POC ABG pCO2 POC ABG pO2 Sodium Potassium 3.2 L D Chloride 109.6 H Carbon Dioxide 18 L BUN 22 H Creatinine Glucose 127 H POC Glucose 147 H Calcium 7.0 L Phosphorus Magnesium AST Alkaline Phosphatase C-Reactive Protein Total Protein Albumin Lipase Vitamin B12 TSH Urine WBC (Auto) Urine Chloride Urine Total Protein Crossmatch 10/15/16 10/15/16 10/15/16 11:05 11:06 11:57 WBC RBC Hgb Hct MCV RDW Plt Count Lymph % (Auto) [place] % (Auto) [place] # Seg Neutrophils % Seg Neuts % (Manual) Lymphocytes % (Manual) Monocytes % (Manual) Basophils % (Manual) Nucleated RBC % Seg Neutrophils # Seg Neutrophils # Man Lymphocytes # (Manual) Monocytes # (Manual) Eosinophils # (Manual) Basophils # (Manual) PT INR APTT Heparin Anti-Xa Level POC ABG pH 7.305 L POC ABG pCO2 POC ABG pO2 Sodium Potassium Chloride Carbon Dioxide BUN Creatinine Glucose POC Glucose 145 H Calcium Phosphorus Magnesium AST Alkaline Phosphatase C-Reactive Protein Total Protein Albumin Lipase Vitamin B12 TSH Urine WBC (Auto) 7.0 H Urine Chloride Urine Total Protein Crossmatch 10/15/16 10/15/16 10/15/16 12:04 13:59 15:24 WBC RBC Hgb Hct MCV RDW Plt Count Lymph % (Auto) [place] % (Auto) [place] # Seg Neutrophils % Seg Neuts % (Manual) Lymphocytes % (Manual) Monocytes % (Manual) Basophils % (Manual) Nucleated RBC % Seg Neutrophils # Seg Neutrophils # Man Lymphocytes # (Manual) Monocytes # (Manual) Eosinophils # (Manual) Basophils # (Manual) PT INR APTT Heparin Anti-Xa Level POC ABG pH POC ABG pCO2 POC ABG pO2 Sodium Potassium Chloride Carbon Dioxide BUN Creatinine Glucose POC Glucose 123 H 147 H 153 H Calcium Phosphorus Magnesium AST Alkaline Phosphatase C-Reactive Protein Total Protein Albumin Lipase Vitamin B12 TSH Urine WBC (Auto) Urine Chloride Urine Total Protein Crossmatch 10/15/16 10/15/16 10/15/16 16:30 17:34 18:30 WBC RBC Hgb Hct MCV RDW Plt Count Lymph % (Auto) [place] % (Auto) [place] # Seg Neutrophils % Seg Neuts % (Manual) Lymphocytes % (Manual) Monocytes % (Manual) Basophils % (Manual) Nucleated RBC % Seg Neutrophils # Seg Neutrophils # Man Lymphocytes # (Manual) Monocytes # (Manual) Eosinophils # (Manual) Basophils # (Manual) PT INR APTT Heparin Anti-Xa Level POC ABG pH POC ABG pCO2 POC ABG pO2 Sodium Potassium Chloride Carbon Dioxide BUN Creatinine Glucose POC Glucose 223 H 236 H 164 H Calcium Phosphorus Magnesium AST Alkaline Phosphatase C-Reactive Protein Total Protein Albumin Lipase Vitamin B12 TSH Urine WBC (Auto) Urine Chloride Urine Total Protein Crossmatch 10/15/16 10/15/16 10/15/16 19:14 20:31 21:23 WBC RBC Hgb Hct MCV RDW Plt Count Lymph % (Auto) [place] % (Auto) [place] # Seg Neutrophils % Seg Neuts % (Manual) Lymphocytes % (Manual) Monocytes % (Manual) Basophils % (Manual) Nucleated RBC % Seg Neutrophils # Seg Neutrophils # Man Lymphocytes # (Manual) Monocytes # (Manual) Eosinophils # (Manual) Basophils # (Manual) PT INR APTT Heparin Anti-Xa Level POC ABG pH POC ABG pCO2 POC ABG pO2 Sodium Potassium Chloride Carbon Dioxide BUN Creatinine Glucose POC Glucose 138 H 158 H 158 H Calcium Phosphorus Magnesium AST Alkaline Phosphatase C-Reactive Protein Total Protein Albumin Lipase Vitamin B12 TSH Urine WBC (Auto) Urine Chloride Urine Total Protein Crossmatch 10/15/16 10/15/16 10/16/16 22:04 22:57 00:11 WBC RBC Hgb Hct MCV RDW Plt Count Lymph % (Auto) [place] % (Auto) [place] # Seg Neutrophils % Seg Neuts % (Manual) Lymphocytes % (Manual) Monocytes % (Manual) Basophils % (Manual) Nucleated RBC % Seg Neutrophils # Seg Neutrophils # Man Lymphocytes # (Manual) Monocytes # (Manual) Eosinophils # (Manual) Basophils # (Manual) PT INR APTT Heparin Anti-Xa Level POC ABG pH POC ABG pCO2 POC ABG pO2 Sodium Potassium Chloride Carbon Dioxide BUN Creatinine Glucose POC Glucose 168 H 213 H 166 H Calcium Phosphorus Magnesium AST Alkaline Phosphatase C-Reactive Protein Total Protein Albumin Lipase Vitamin B12 TSH Urine WBC (Auto) Urine Chloride Urine Total Protein Crossmatch 10/16/16 10/16/16 10/16/16 01:16 02:32 03:38 WBC RBC Hgb Hct MCV RDW Plt Count Lymph % (Auto) [place] % (Auto) [place] # Seg Neutrophils % Seg Neuts % (Manual) Lymphocytes % (Manual) Monocytes % (Manual) Basophils % (Manual) Nucleated RBC % Seg Neutrophils # Seg Neutrophils # Man Lymphocytes # (Manual) Monocytes # (Manual) Eosinophils # (Manual) Basophils # (Manual) PT INR APTT Heparin Anti-Xa Level POC ABG pH POC ABG pCO2 POC ABG pO2 Sodium Potassium Chloride Carbon Dioxide BUN Creatinine Glucose POC Glucose 171 H 164 H 147 H Calcium Phosphorus Magnesium AST Alkaline Phosphatase C-Reactive Protein Total Protein Albumin Lipase Vitamin B12 TSH Urine WBC (Auto) Urine Chloride Urine Total Protein Crossmatch 10/16/16 10/16/16 10/16/16 04:14 04:14 04:49 WBC RBC Hgb Hct MCV RDW Plt Count Lymph % (Auto) [place] % (Auto) [place] # Seg Neutrophils % Seg Neuts % (Manual) Lymphocytes % (Manual) Monocytes % (Manual) Basophils % (Manual) Nucleated RBC % Seg Neutrophils # Seg Neutrophils # Man Lymphocytes # (Manual) Monocytes # (Manual) Eosinophils # (Manual) Basophils # (Manual) PT INR APTT Heparin Anti-Xa Level POC ABG pH POC ABG pCO2 POC ABG pO2 Sodium 147 H Potassium Chloride 110.9 H Carbon Dioxide 19 L BUN Creatinine Glucose 139 H POC Glucose 144 H Calcium 7.3 L Phosphorus 2.3 L Magnesium AST Alkaline Phosphatase C-Reactive Protein Total Protein Albumin Lipase 143 H Vitamin B12 TSH Urine WBC (Auto) Urine Chloride Urine Total Protein Crossmatch 10/16/16 10/16/16 10/16/16 05:03 05:41 05:58 WBC 16.5 H RBC 3.36 L Hgb Hct MCV 98 H RDW 13.1 L Plt Count Lymph % (Auto) 8.5 L [place] % (Auto) 7.6 H [place] # 1.3 H Seg Neutrophils % 83.3 H Seg Neuts % (Manual) Lymphocytes % (Manual) Monocytes % (Manual) Basophils % (Manual) Nucleated RBC % Seg Neutrophils # 13.8 H Seg Neutrophils # Man Lymphocytes # (Manual) Monocytes # (Manual) Eosinophils # (Manual) Basophils # (Manual) PT INR APTT Heparin Anti-Xa Level POC ABG pH POC ABG pCO2 30.7 L POC ABG pO2 128 H Sodium Potassium Chloride Carbon Dioxide BUN Creatinine Glucose POC Glucose 131 H Calcium Phosphorus Magnesium AST Alkaline Phosphatase C-Reactive Protein Total Protein Albumin Lipase Vitamin B12 TSH Urine WBC (Auto) Urine Chloride Urine Total Protein Crossmatch 10/16/16 10/16/16 10/16/16 06:32 09:27 09:35 WBC RBC Hgb Hct MCV RDW Plt Count Lymph % (Auto) [place] % (Auto) [place] # Seg Neutrophils % Seg Neuts % (Manual) Lymphocytes % (Manual) Monocytes % (Manual) Basophils % (Manual) Nucleated RBC % Seg Neutrophils # Seg Neutrophils # Man Lymphocytes # (Manual) Monocytes # (Manual) Eosinophils # (Manual) Basophils # (Manual) PT INR APTT Heparin Anti-Xa Level POC ABG pH POC ABG pCO2 32.8 L POC ABG pO2 137 H Sodium Potassium Chloride Carbon Dioxide BUN Creatinine Glucose POC Glucose 121 H 150 H Calcium Phosphorus Magnesium AST Alkaline Phosphatase C-Reactive Protein Total Protein Albumin Lipase Vitamin B12 TSH Urine WBC (Auto) Urine Chloride Urine Total Protein Crossmatch 10/16/16 10/16/16 10/16/16 10:47 13:27 14:24 WBC RBC Hgb Hct MCV RDW Plt Count Lymph % (Auto) [place] % (Auto) [place] # Seg Neutrophils % Seg Neuts % (Manual) Lymphocytes % (Manual) Monocytes % (Manual) Basophils % (Manual) Nucleated RBC % Seg Neutrophils # Seg Neutrophils # Man Lymphocytes # (Manual) Monocytes # (Manual) Eosinophils # (Manual) Basophils # (Manual) PT INR APTT Heparin Anti-Xa Level POC ABG pH POC ABG pCO2 POC ABG pO2 Sodium Potassium Chloride Carbon Dioxide BUN Creatinine Glucose POC Glucose 184 H 171 H 174 H Calcium Phosphorus Magnesium AST Alkaline Phosphatase C-Reactive Protein Total Protein Albumin Lipase Vitamin B12 TSH Urine WBC (Auto) Urine Chloride Urine Total Protein Crossmatch 10/16/16 10/16/16 10/16/16 15:48 16:26 18:17 WBC RBC Hgb Hct MCV RDW Plt Count Lymph % (Auto) [place] % (Auto) [place] # Seg Neutrophils % Seg Neuts % (Manual) Lymphocytes % (Manual) Monocytes % (Manual) Basophils % (Manual) Nucleated RBC % Seg Neutrophils # Seg Neutrophils # Man Lymphocytes # (Manual) Monocytes # (Manual) Eosinophils # (Manual) Basophils # (Manual) PT INR APTT Heparin Anti-Xa Level POC ABG pH POC ABG pCO2 POC ABG pO2 Sodium Potassium Chloride Carbon Dioxide BUN Creatinine Glucose POC Glucose 205 H 204 H 234 H Calcium Phosphorus Magnesium AST Alkaline Phosphatase C-Reactive Protein Total Protein Albumin Lipase Vitamin B12 TSH Urine WBC (Auto) Urine Chloride Urine Total Protein Crossmatch 10/16/16 10/16/16 10/16/16 19:40 20:33 21:36 WBC RBC Hgb Hct MCV RDW Plt Count Lymph % (Auto) [place] % (Auto) [place] # Seg Neutrophils % Seg Neuts % (Manual) Lymphocytes % (Manual) Monocytes % (Manual) Basophils % (Manual) Nucleated RBC % Seg Neutrophils # Seg Neutrophils # Man Lymphocytes # (Manual) Monocytes # (Manual) Eosinophils # (Manual) Basophils # (Manual) PT INR APTT Heparin Anti-Xa Level POC ABG pH POC ABG pCO2 POC ABG pO2 Sodium Potassium Chloride Carbon Dioxide BUN Creatinine Glucose POC Glucose 167 H 153 H 158 H Calcium Phosphorus Magnesium AST Alkaline Phosphatase C-Reactive Protein Total Protein Albumin Lipase Vitamin B12 TSH Urine WBC (Auto) Urine Chloride Urine Total Protein Crossmatch 10/16/16 10/16/16 10/17/16 22:54 23:48 00:47 WBC RBC Hgb Hct MCV RDW Plt Count Lymph % (Auto) [place] % (Auto) [place] # Seg Neutrophils % Seg Neuts % (Manual) Lymphocytes % (Manual) Monocytes % (Manual) Basophils % (Manual) Nucleated RBC % Seg Neutrophils # Seg Neutrophils # Man Lymphocytes # (Manual) Monocytes # (Manual) Eosinophils # (Manual) Basophils # (Manual) PT INR APTT Heparin Anti-Xa Level POC ABG pH POC ABG pCO2 POC ABG pO2 Sodium Potassium Chloride Carbon Dioxide BUN Creatinine Glucose POC Glucose 180 H 207 H 196 H Calcium Phosphorus Magnesium AST Alkaline Phosphatase C-Reactive Protein Total Protein Albumin Lipase Vitamin B12 TSH Urine WBC (Auto) Urine Chloride Urine Total Protein Crossmatch 10/17/16 10/17/16 10/17/16 01:57 02:49 03:50 WBC RBC Hgb Hct MCV RDW Plt Count Lymph % (Auto) [place] % (Auto) [place] # Seg Neutrophils % Seg Neuts % (Manual) Lymphocytes % (Manual) Monocytes % (Manual) Basophils % (Manual) Nucleated RBC % Seg Neutrophils # Seg Neutrophils # Man Lymphocytes # (Manual) Monocytes # (Manual) Eosinophils # (Manual) Basophils # (Manual) PT INR APTT Heparin Anti-Xa Level POC ABG pH POC ABG pCO2 POC ABG pO2 Sodium Potassium Chloride Carbon Dioxide BUN Creatinine Glucose POC Glucose 180 H 151 H 106 H Calcium Phosphorus Magnesium AST Alkaline Phosphatase C-Reactive Protein Total Protein Albumin Lipase Vitamin B12 TSH Urine WBC (Auto) Urine Chloride Urine Total Protein Crossmatch 10/17/16 10/17/16 10/17/16 04:59 06:03 06:35 WBC RBC Hgb Hct MCV RDW Plt Count Lymph % (Auto) [place] % (Auto) [place] # Seg Neutrophils % Seg Neuts % (Manual) Lymphocytes % (Manual) Monocytes % (Manual) Basophils % (Manual) Nucleated RBC % Seg Neutrophils # Seg Neutrophils # Man Lymphocytes # (Manual) Monocytes # (Manual) Eosinophils # (Manual) Basophils # (Manual) PT INR APTT Heparin Anti-Xa Level POC ABG pH 7.453 H POC ABG pCO2 30.1 L POC ABG pO2 111 H Sodium Potassium Chloride Carbon Dioxide BUN Creatinine Glucose POC Glucose 145 H 157 H Calcium Phosphorus Magnesium AST Alkaline Phosphatase C-Reactive Protein Total Protein Albumin Lipase Vitamin B12 TSH Urine WBC (Auto) Urine Chloride Urine Total Protein Crossmatch 10/17/16 10/17/16 10/17/16 07:08 07:11 08:01 WBC RBC Hgb Hct MCV RDW Plt Count Lymph % (Auto) [place] % (Auto) [place] # Seg Neutrophils % Seg Neuts % (Manual) Lymphocytes % (Manual) Monocytes % (Manual) Basophils % (Manual) Nucleated RBC % Seg Neutrophils # Seg Neutrophils # Man Lymphocytes # (Manual) Monocytes # (Manual) Eosinophils # (Manual) Basophils # (Manual) PT INR APTT Heparin Anti-Xa Level POC ABG pH POC ABG pCO2 POC ABG pO2 Sodium 147 H Potassium Chloride 113.8 H Carbon Dioxide 19 L BUN Creatinine Glucose 136 H POC Glucose 136 H 152 H Calcium 7.7 L Phosphorus Magnesium AST Alkaline Phosphatase C-Reactive Protein Total Protein Albumin Lipase Vitamin B12 TSH Urine WBC (Auto) Urine Chloride Urine Total Protein Crossmatch 10/17/16 10/17/16 10/17/16 08:23 09:17 09:53 WBC 18.1 H RBC 3.01 L Hgb 9.7 L Hct 29.4 L MCV 98 H RDW Plt Count 116 L Lymph % (Auto) [place] % (Auto) [place] # Seg Neutrophils % Seg Neuts % (Manual) 77.0 H Lymphocytes % (Manual) 4.0 L Monocytes % (Manual) 12.0 H Basophils % (Manual) Nucleated RBC % Seg Neutrophils # Seg Neutrophils # Man 13.9 H Lymphocytes # (Manual) 0.7 L Monocytes # (Manual) 2.2 H Eosinophils # (Manual) Basophils # (Manual) PT INR APTT Heparin Anti-Xa Level POC ABG pH POC ABG pCO2 POC ABG pO2 Sodium Potassium Chloride Carbon Dioxide BUN Creatinine Glucose POC Glucose 148 H 137 H Calcium Phosphorus Magnesium AST Alkaline Phosphatase C-Reactive Protein Total Protein Albumin Lipase Vitamin B12 TSH Urine WBC (Auto) Urine Chloride Urine Total Protein Crossmatch 10/17/16 10/17/16 10/17/16 11:43 16:07 17:42 WBC RBC Hgb Hct MCV RDW Plt Count Lymph % (Auto) [place] % (Auto) [place] # Seg Neutrophils % Seg Neuts % (Manual) Lymphocytes % (Manual) Monocytes % (Manual) Basophils % (Manual) Nucleated RBC % Seg Neutrophils # Seg Neutrophils # Man Lymphocytes # (Manual) Monocytes # (Manual) Eosinophils # (Manual) Basophils # (Manual) PT 16.4 H INR 1.33 H APTT 38.8 H Heparin Anti-Xa Level POC ABG pH POC ABG pCO2 POC ABG pO2 Sodium Potassium Chloride Carbon Dioxide BUN Creatinine Glucose POC Glucose 179 H 153 H Calcium Phosphorus Magnesium AST Alkaline Phosphatase C-Reactive Protein Total Protein Albumin Lipase Vitamin B12 TSH Urine WBC (Auto) Urine Chloride Urine Total Protein Crossmatch 10/17/16 10/18/16 10/18/16 22:54 04:37 05:39 WBC RBC Hgb Hct MCV RDW Plt Count Lymph % (Auto) [place] % (Auto) [place] # Seg Neutrophils % Seg Neuts % (Manual) Lymphocytes % (Manual) Monocytes % (Manual) Basophils % (Manual) Nucleated RBC % Seg Neutrophils # Seg Neutrophils # Man Lymphocytes # (Manual) Monocytes # (Manual) Eosinophils # (Manual) Basophils # (Manual) PT INR APTT Heparin Anti-Xa Level 0.27 L POC ABG pH 7.454 H POC ABG pCO2 30.8 L POC ABG pO2 115 H Sodium Potassium Chloride Carbon Dioxide BUN Creatinine Glucose POC Glucose 69 L Calcium Phosphorus Magnesium AST Alkaline Phosphatase C-Reactive Protein Total Protein Albumin Lipase Vitamin B12 TSH Urine WBC (Auto) Urine Chloride Urine Total Protein Crossmatch 10/18/16 10/18/16 10/18/16 06:46 06:46 06:46 WBC 20.5 H RBC 2.62 L Hgb 8.4 L Hct 26.0 L MCV 100 H RDW Plt Count Lymph % (Auto) [place] % (Auto) [place] # Seg Neutrophils % Seg Neuts % (Manual) 75.0 H Lymphocytes % (Manual) 9.0 L Monocytes % (Manual) 14.0 H Basophils % (Manual) Nucleated RBC % Seg Neutrophils # Seg Neutrophils # Man 15.4 H Lymphocytes # (Manual) Monocytes # (Manual) 2.9 H Eosinophils # (Manual) Basophils # (Manual) PT INR APTT Heparin Anti-Xa Level POC ABG pH POC ABG pCO2 POC ABG pO2 Sodium Potassium Chloride 110.6 H Carbon Dioxide BUN Creatinine 1.3 H Glucose 153 H POC Glucose Calcium 8.0 L Phosphorus Magnesium 1.6 L AST Alkaline Phosphatase C-Reactive Protein Total Protein Albumin Lipase Vitamin B12 TSH Urine WBC (Auto) Urine Chloride Urine Total Protein Crossmatch 10/18/16 10/18/16 10/18/16 07:30 11:37 17:51 WBC RBC Hgb Hct MCV RDW Plt Count Lymph % (Auto) [place] % (Auto) [place] # Seg Neutrophils % Seg Neuts % (Manual) Lymphocytes % (Manual) Monocytes % (Manual) Basophils % (Manual) Nucleated RBC % Seg Neutrophils # Seg Neutrophils # Man Lymphocytes # (Manual) Monocytes # (Manual) Eosinophils # (Manual) Basophils # (Manual) PT INR APTT Heparin Anti-Xa Level POC ABG pH POC ABG pCO2 POC ABG pO2 Sodium Potassium Chloride Carbon Dioxide BUN Creatinine Glucose POC Glucose 162 H 156 H 164 H Calcium Phosphorus Magnesium AST Alkaline Phosphatase C-Reactive Protein Total Protein Albumin Lipase Vitamin B12 TSH Urine WBC (Auto) Urine Chloride Urine Total Protein Crossmatch 10/18/16 10/19/16 10/19/16 23:44 03:59 05:13 WBC 18.2 H RBC 2.76 L Hgb 9.0 L Hct 27.7 L MCV 100 H RDW Plt Count Lymph % (Auto) [place] % (Auto) [place] # Seg Neutrophils % Seg Neuts % (Manual) 76.0 H Lymphocytes % (Manual) 10.0 L Monocytes % (Manual) Basophils % (Manual) Nucleated RBC % Seg Neutrophils # Seg Neutrophils # Man 13.8 H Lymphocytes # (Manual) Monocytes # (Manual) Eosinophils # (Manual) Basophils # (Manual) PT INR APTT Heparin Anti-Xa Level POC ABG pH POC ABG pCO2 32.2 L POC ABG pO2 128 H Sodium Potassium Chloride Carbon Dioxide BUN Creatinine Glucose POC Glucose 278 H Calcium Phosphorus Magnesium AST Alkaline Phosphatase C-Reactive Protein Total Protein Albumin Lipase Vitamin B12 TSH Urine WBC (Auto) Urine Chloride Urine Total Protein Crossmatch 10/19/16 10/19/16 10/19/16 06:01 06:30 12:20 WBC RBC Hgb Hct MCV RDW Plt Count Lymph % (Auto) [place] % (Auto) [place] # Seg Neutrophils % Seg Neuts % (Manual) Lymphocytes % (Manual) Monocytes % (Manual) Basophils % (Manual) Nucleated RBC % Seg Neutrophils # Seg Neutrophils # Man Lymphocytes # (Manual) Monocytes # (Manual) Eosinophils # (Manual) Basophils # (Manual) PT INR APTT Heparin Anti-Xa Level POC ABG pH POC ABG pCO2 POC ABG pO2 Sodium Potassium Chloride Carbon Dioxide 18 L BUN Creatinine 1.3 H Glucose 262 H POC Glucose 261 H 349 H Calcium 7.7 L Phosphorus 4.8 H D Magnesium AST Alkaline Phosphatase C-Reactive Protein Total Protein Albumin Lipase Vitamin B12 TSH Urine WBC (Auto) Urine Chloride Urine Total Protein Crossmatch 10/19/16 10/20/16 10/20/16 16:48 00:17 05:20 WBC 22.5 H RBC 2.80 L Hgb 8.9 L Hct 28.3 L MCV 101 H RDW Plt Count Lymph % (Auto) [place] % (Auto) [place] # Seg Neutrophils % Seg Neuts % (Manual) Lymphocytes % (Manual) 10.0 L Monocytes % (Manual) Basophils % (Manual) Nucleated RBC % Seg Neutrophils # Seg Neutrophils # Man 13.3 H Lymphocytes # (Manual) Monocytes # (Manual) 1.1 H Eosinophils # (Manual) 0.7 H Basophils # (Manual) PT INR APTT Heparin Anti-Xa Level POC ABG pH POC ABG pCO2 POC ABG pO2 Sodium Potassium Chloride Carbon Dioxide BUN Creatinine Glucose POC Glucose 248 H 346 H Calcium Phosphorus Magnesium AST Alkaline Phosphatase C-Reactive Protein Total Protein Albumin Lipase Vitamin B12 TSH Urine WBC (Auto) Urine Chloride Urine Total Protein Crossmatch 10/20/16 10/20/16 10/20/16 05:20 05:20 06:05 WBC RBC Hgb Hct MCV RDW Plt Count Lymph % (Auto) [place] % (Auto) [place] # Seg Neutrophils % Seg Neuts % (Manual) Lymphocytes % (Manual) Monocytes % (Manual) Basophils % (Manual) Nucleated RBC % Seg Neutrophils # Seg Neutrophils # Man Lymphocytes # (Manual) Monocytes # (Manual) Eosinophils # (Manual) Basophils # (Manual) PT INR APTT Heparin Anti-Xa Level 0.20 L POC ABG pH POC ABG pCO2 POC ABG pO2 Sodium Potassium Chloride Carbon Dioxide BUN 20 H Creatinine Glucose 374 H POC Glucose 337 H Calcium 8.3 L Phosphorus Magnesium AST Alkaline Phosphatase C-Reactive Protein Total Protein Albumin Lipase Vitamin B12 TSH Urine WBC (Auto) Urine Chloride Urine Total Protein Crossmatch 10/20/16 10/20/16 10/20/16 11:49 13:59 17:56 WBC RBC Hgb Hct MCV RDW Plt Count Lymph % (Auto) [place] % (Auto) [place] # Seg Neutrophils % Seg Neuts % (Manual) Lymphocytes % (Manual) Monocytes % (Manual) Basophils % (Manual) Nucleated RBC % Seg Neutrophils # Seg Neutrophils # Man Lymphocytes # (Manual) Monocytes # (Manual) Eosinophils # (Manual) Basophils # (Manual) PT INR APTT Heparin Anti-Xa Level 2.00 H POC ABG pH POC ABG pCO2 POC ABG pO2 Sodium Potassium Chloride Carbon Dioxide BUN Creatinine Glucose POC Glucose 305 H 362 H Calcium Phosphorus Magnesium AST Alkaline Phosphatase C-Reactive Protein Total Protein Albumin Lipase Vitamin B12 TSH Urine WBC (Auto) Urine Chloride Urine Total Protein Crossmatch 10/20/16 10/21/16 10/21/16 23:52 05:00 05:49 WBC 22.9 H RBC 2.49 L Hgb 7.7 L Hct 25.6 L MCV 103 H RDW Plt Count Lymph % (Auto) [place] % (Auto) [place] # Seg Neutrophils % Seg Neuts % (Manual) 94.0 H Lymphocytes % (Manual) 1.0 L Monocytes % (Manual) Basophils % (Manual) Nucleated RBC % Seg Neutrophils # Seg Neutrophils # Man 21.5 H Lymphocytes # (Manual) 0.2 L Monocytes # (Manual) 1.1 H Eosinophils # (Manual) Basophils # (Manual) PT INR APTT Heparin Anti-Xa Level POC ABG pH POC ABG pCO2 POC ABG pO2 Sodium Potassium Chloride Carbon Dioxide BUN Creatinine Glucose POC Glucose 252 H 180 H Calcium Phosphorus Magnesium AST Alkaline Phosphatase C-Reactive Protein Total Protein Albumin Lipase Vitamin B12 TSH Urine WBC (Auto) Urine Chloride Urine Total Protein Crossmatch 10/21/16 10/21/16 10/21/16 11:47 11:49 14:10 WBC RBC Hgb Hct MCV RDW Plt Count Lymph % (Auto) [place] % (Auto) [place] # Seg Neutrophils % Seg Neuts % (Manual) Lymphocytes % (Manual) Monocytes % (Manual) Basophils % (Manual) Nucleated RBC % Seg Neutrophils # Seg Neutrophils # Man Lymphocytes # (Manual) Monocytes # (Manual) Eosinophils # (Manual) Basophils # (Manual) PT INR APTT Heparin Anti-Xa Level POC ABG pH POC ABG pCO2 POC ABG pO2 Sodium Potassium Chloride Carbon Dioxide BUN Creatinine Glucose POC Glucose 50 L 56 L 140 H Calcium Phosphorus Magnesium AST Alkaline Phosphatase C-Reactive Protein Total Protein Albumin Lipase Vitamin B12 TSH Urine WBC (Auto) Urine Chloride Urine Total Protein Crossmatch 10/21/16 10/21/16 10/22/16 18:24 Unknown 00:07 WBC RBC Hgb Hct MCV RDW Plt Count Lymph % (Auto) [place] % (Auto) [place] # Seg Neutrophils % Seg Neuts % (Manual) Lymphocytes % (Manual) Monocytes % (Manual) Basophils % (Manual) Nucleated RBC % Seg Neutrophils # Seg Neutrophils # Man Lymphocytes # (Manual) Monocytes # (Manual) Eosinophils # (Manual) Basophils # (Manual) PT INR APTT Heparin Anti-Xa Level POC ABG pH POC ABG pCO2 POC ABG pO2 Sodium 150 H Potassium 3.1 L Chloride 112.4 H Carbon Dioxide BUN 25 H Creatinine 1.4 H Glucose POC Glucose 175 H 218 H Calcium 8.0 L Phosphorus Magnesium AST Alkaline Phosphatase C-Reactive Protein Total Protein Albumin Lipase Vitamin B12 TSH Urine WBC (Auto) Urine Chloride Urine Total Protein Crossmatch 10/22/16 10/22/16 10/22/16 04:20 04:20 10:25 WBC 20.8 H RBC 2.37 L Hgb 7.5 L Hct 23.9 L MCV 101 H RDW Plt Count Lymph % (Auto) [place] % (Auto) [place] # Seg Neutrophils % Seg Neuts % (Manual) 89.0 H Lymphocytes % (Manual) 7.0 L Monocytes % (Manual) Basophils % (Manual) Nucleated RBC % Seg Neutrophils # Seg Neutrophils # Man 18.5 H Lymphocytes # (Manual) Monocytes # (Manual) Eosinophils # (Manual) Basophils # (Manual) 0.2 H PT INR APTT Heparin Anti-Xa Level POC ABG pH POC ABG pCO2 POC ABG pO2 Sodium 148 H Potassium 2.9 L* Chloride 109.4 H Carbon Dioxide BUN 26 H Creatinine Glucose 140 H POC Glucose Calcium 7.5 L Phosphorus Magnesium AST Alkaline Phosphatase C-Reactive Protein Total Protein Albumin Lipase Vitamin B12 976.8 H TSH Urine WBC (Auto) Urine Chloride Urine Total Protein Crossmatch 10/22/16 10/22/16 10/22/16 10:25 14:50 18:16 WBC RBC Hgb Hct MCV RDW Plt Count Lymph % (Auto) [place] % (Auto) [place] # Seg Neutrophils % Seg Neuts % (Manual) Lymphocytes % (Manual) Monocytes % (Manual) Basophils % (Manual) Nucleated RBC % Seg Neutrophils # Seg Neutrophils # Man Lymphocytes # (Manual) Monocytes # (Manual) Eosinophils # (Manual) Basophils # (Manual) PT INR APTT Heparin Anti-Xa Level POC ABG pH POC ABG pCO2 POC ABG pO2 Sodium Potassium Chloride Carbon Dioxide BUN Creatinine Glucose POC Glucose 193 H Calcium Phosphorus Magnesium AST Alkaline Phosphatase C-Reactive Protein Total Protein Albumin Lipase Vitamin B12 TSH 0.143 L 0.162 L Urine WBC (Auto) Urine Chloride Urine Total Protein Crossmatch 10/22/16 10/22/16 10/22/16 20:00 20:00 20:00 WBC 24.1 H RBC 2.58 L Hgb 8.2 L Hct 26.4 L MCV 102 H RDW Plt Count Lymph % (Auto) [place] % (Auto) [place] # Seg Neutrophils % Seg Neuts % (Manual) 74.0 H Lymphocytes % (Manual) 7.0 L Monocytes % (Manual) Basophils % (Manual) Nucleated RBC % Seg Neutrophils # Seg Neutrophils # Man 17.8 H Lymphocytes # (Manual) Monocytes # (Manual) Eosinophils # (Manual) Basophils # (Manual) PT INR APTT Heparin Anti-Xa Level 1.92 H POC ABG pH POC ABG pCO2 POC ABG pO2 Sodium Potassium Chloride Carbon Dioxide BUN Creatinine Glucose POC Glucose Calcium Phosphorus Magnesium AST Alkaline Phosphatase C-Reactive Protein Total Protein Albumin Lipase Vitamin B12 TSH Urine WBC (Auto) Urine Chloride Urine Total Protein Crossmatch See Detail 10/23/16 10/23/16 10/23/16 00:21 06:09 12:07 WBC RBC Hgb Hct MCV RDW Plt Count Lymph % (Auto) [place] % (Auto) [place] # Seg Neutrophils % Seg Neuts % (Manual) Lymphocytes % (Manual) Monocytes % (Manual) Basophils % (Manual) Nucleated RBC % Seg Neutrophils # Seg Neutrophils # Man Lymphocytes # (Manual) Monocytes # (Manual) Eosinophils # (Manual) Basophils # (Manual) PT INR APTT Heparin Anti-Xa Level POC ABG pH POC ABG pCO2 POC ABG pO2 Sodium Potassium Chloride Carbon Dioxide BUN Creatinine Glucose POC Glucose 283 H 241 H 340 H Calcium Phosphorus Magnesium AST Alkaline Phosphatase C-Reactive Protein Total Protein Albumin Lipase Vitamin B12 TSH Urine WBC (Auto) Urine Chloride Urine Total Protein Crossmatch 10/23/16 10/23/16 10/23/16 14:01 16:00 17:59 WBC RBC Hgb Hct MCV RDW Plt Count Lymph % (Auto) [place] % (Auto) [place] # Seg Neutrophils % Seg Neuts % (Manual) Lymphocytes % (Manual) Monocytes % (Manual) Basophils % (Manual) Nucleated RBC % Seg Neutrophils # Seg Neutrophils # Man Lymphocytes # (Manual) Monocytes # (Manual) Eosinophils # (Manual) Basophils # (Manual) PT INR APTT Heparin Anti-Xa Level 0.19 L POC ABG pH POC ABG pCO2 32.4 L POC ABG pO2 Sodium Potassium Chloride Carbon Dioxide BUN Creatinine Glucose POC Glucose 245 H Calcium Phosphorus Magnesium AST Alkaline Phosphatase C-Reactive Protein Total Protein Albumin Lipase Vitamin B12 TSH Urine WBC (Auto) Urine Chloride Urine Total Protein Crossmatch 10/23/16 10/23/16 10/23/16 22:55 Unknown Unknown WBC 22.6 H RBC 3.26 L Hgb Hct MCV RDW 17.1 H Plt Count Lymph % (Auto) [place] % (Auto) [place] # Seg Neutrophils % Seg Neuts % (Manual) Lymphocytes % (Manual) 11.0 L Monocytes % (Manual) Basophils % (Manual) Nucleated RBC % Seg Neutrophils # Seg Neutrophils # Man 14.0 H Lymphocytes # (Manual) Monocytes # (Manual) Eosinophils # (Manual) Basophils # (Manual) PT INR APTT Heparin Anti-Xa Level 0.17 L 0.15 L POC ABG pH POC ABG pCO2 POC ABG pO2 Sodium Potassium Chloride Carbon Dioxide BUN Creatinine Glucose POC Glucose Calcium Phosphorus Magnesium AST Alkaline Phosphatase C-Reactive Protein Total Protein Albumin Lipase Vitamin B12 TSH Urine WBC (Auto) Urine Chloride Urine Total Protein Crossmatch 10/23/16 10/24/16 10/24/16 Unknown 00:05 05:30 WBC RBC Hgb Hct MCV RDW Plt Count Lymph % (Auto) [place] % (Auto) [place] # Seg Neutrophils % Seg Neuts % (Manual) Lymphocytes % (Manual) Monocytes % (Manual) Basophils % (Manual) Nucleated RBC % Seg Neutrophils # Seg Neutrophils # Man Lymphocytes # (Manual) Monocytes # (Manual) Eosinophils # (Manual) Basophils # (Manual) PT INR APTT Heparin Anti-Xa Level 0.13 L POC ABG pH POC ABG pCO2 POC ABG pO2 Sodium Potassium Chloride 111.2 H Carbon Dioxide 20 L BUN 25 H Creatinine Glucose 227 H POC Glucose 118 H Calcium 7.1 L Phosphorus Magnesium AST Alkaline Phosphatase C-Reactive Protein Total Protein Albumin Lipase Vitamin B12 TSH Urine WBC (Auto) Urine Chloride Urine Total Protein Crossmatch 10/24/16 10/24/16 10/24/16 11:00 11:00 12:06 WBC 17.6 H RBC 2.92 L Hgb 9.2 L Hct 28.3 L MCV RDW 16.9 H Plt Count Lymph % (Auto) [place] % (Auto) [place] # Seg Neutrophils % Seg Neuts % (Manual) Lymphocytes % (Manual) Monocytes % (Manual) Basophils % (Manual) Nucleated RBC % Seg Neutrophils # Seg Neutrophils # Man Lymphocytes # (Manual) Monocytes # (Manual) Eosinophils # (Manual) Basophils # (Manual) PT INR APTT Heparin Anti-Xa Level 0.27 L POC ABG pH POC ABG pCO2 POC ABG pO2 Sodium Potassium Chloride Carbon Dioxide BUN Creatinine Glucose POC Glucose 166 H Calcium Phosphorus Magnesium AST Alkaline Phosphatase C-Reactive Protein Total Protein Albumin Lipase Vitamin B12 TSH Urine WBC (Auto) Urine Chloride Urine Total Protein Crossmatch 10/24/16 10/25/16 10/25/16 12:27 00:49 03:30 WBC RBC Hgb 8.8 L Hct 28.1 L MCV RDW Plt Count Lymph % (Auto) [place] % (Auto) [place] # Seg Neutrophils % Seg Neuts % (Manual) Lymphocytes % (Manual) Monocytes % (Manual) Basophils % (Manual) Nucleated RBC % Seg Neutrophils # Seg Neutrophils # Man Lymphocytes # (Manual) Monocytes # (Manual) Eosinophils # (Manual) Basophils # (Manual) PT INR APTT Heparin Anti-Xa Level POC ABG pH POC ABG pCO2 33.9 L POC ABG pO2 Sodium Potassium Chloride Carbon Dioxide BUN Creatinine Glucose POC Glucose 121 H Calcium Phosphorus Magnesium AST Alkaline Phosphatase C-Reactive Protein Total Protein Albumin Lipase Vitamin B12 TSH Urine WBC (Auto) Urine Chloride Urine Total Protein Crossmatch 10/25/16 10/25/16 10/25/16 09:49 12:10 19:25 WBC 21.1 H RBC 3.02 L Hgb 9.3 L Hct 28.9 L MCV RDW 16.3 H Plt Count Lymph % (Auto) [place] % (Auto) [place] # Seg Neutrophils % Seg Neuts % (Manual) 81.0 H Lymphocytes % (Manual) 9.0 L Monocytes % (Manual) Basophils % (Manual) Nucleated RBC % Seg Neutrophils # Seg Neutrophils # Man 17.1 H Lymphocytes # (Manual) Monocytes # (Manual) Eosinophils # (Manual) Basophils # (Manual) PT INR APTT Heparin Anti-Xa Level POC ABG pH POC ABG pCO2 POC ABG pO2 Sodium Potassium Chloride Carbon Dioxide BUN Creatinine Glucose POC Glucose 158 H 151 H Calcium Phosphorus Magnesium AST Alkaline Phosphatase C-Reactive Protein Total Protein Albumin Lipase Vitamin B12 TSH Urine WBC (Auto) Urine Chloride Urine Total Protein Crossmatch 10/26/16 10/26/16 10/26/16 00:20 01:09 05:02 WBC 22.2 H RBC 2.89 L Hgb 8.7 L Hct 27.8 L MCV RDW 16.4 H Plt Count Lymph % (Auto) [place] % (Auto) [place] # Seg Neutrophils % Seg Neuts % (Manual) Lymphocytes % (Manual) Monocytes % (Manual) Basophils % (Manual) Nucleated RBC % Seg Neutrophils # Seg Neutrophils # Man Lymphocytes # (Manual) Monocytes # (Manual) Eosinophils # (Manual) Basophils # (Manual) PT INR APTT Heparin Anti-Xa Level POC ABG pH POC ABG pCO2 POC ABG pO2 Sodium Potassium Chloride Carbon Dioxide BUN Creatinine Glucose POC Glucose 44 L 112 H Calcium Phosphorus Magnesium AST Alkaline Phosphatase C-Reactive Protein Total Protein Albumin Lipase Vitamin B12 TSH Urine WBC (Auto) Urine Chloride Urine Total Protein Crossmatch 10/26/16 10/26/16 10/26/16 05:02 12:11 12:14 WBC RBC Hgb Hct MCV RDW Plt Count Lymph % (Auto) [place] % (Auto) [place] # Seg Neutrophils % Seg Neuts % (Manual) Lymphocytes % (Manual) Monocytes % (Manual) Basophils % (Manual) Nucleated RBC % Seg Neutrophils # Seg Neutrophils # Man Lymphocytes # (Manual) Monocytes # (Manual) Eosinophils # (Manual) Basophils # (Manual) PT INR APTT Heparin Anti-Xa Level POC ABG pH POC ABG pCO2 32.0 L POC ABG pO2 33 L Sodium Potassium 3.2 L D Chloride Carbon Dioxide 20 L BUN 24 H Creatinine Glucose 104 H POC Glucose 194 H Calcium 7.7 L Phosphorus Magnesium AST Alkaline Phosphatase C-Reactive Protein Total Protein Albumin Lipase Vitamin B12 TSH Urine WBC (Auto) Urine Chloride Urine Total Protein Crossmatch 10/26/16 10/26/16 10/27/16 15:28 17:23 00:04 WBC RBC Hgb Hct MCV RDW Plt Count Lymph % (Auto) [place] % (Auto) [place] # Seg Neutrophils % Seg Neuts % (Manual) Lymphocytes % (Manual) Monocytes % (Manual) Basophils % (Manual) Nucleated RBC % Seg Neutrophils # Seg Neutrophils # Man Lymphocytes # (Manual) Monocytes # (Manual) Eosinophils # (Manual) Basophils # (Manual) PT INR APTT Heparin Anti-Xa Level POC ABG pH POC ABG pCO2 33.7 L POC ABG pO2 Sodium Potassium Chloride Carbon Dioxide BUN Creatinine Glucose POC Glucose 181 H 230 H Calcium Phosphorus Magnesium AST Alkaline Phosphatase C-Reactive Protein Total Protein Albumin Lipase Vitamin B12 TSH Urine WBC (Auto) Urine Chloride Urine Total Protein Crossmatch 10/27/16 10/27/16 10/27/16 05:15 05:15 05:38 WBC 25.5 H RBC 3.07 L Hgb 9.4 L Hct 30.1 L MCV 98 H RDW 16.4 H Plt Count 527 H Lymph % (Auto) [place] % (Auto) [place] # Seg Neutrophils % Seg Neuts % (Manual) Lymphocytes % (Manual) Monocytes % (Manual) Basophils % (Manual) Nucleated RBC % Seg Neutrophils # Seg Neutrophils # Man Lymphocytes # (Manual) Monocytes # (Manual) Eosinophils # (Manual) Basophils # (Manual) PT INR APTT Heparin Anti-Xa Level POC ABG pH POC ABG pCO2 POC ABG pO2 Sodium Potassium Chloride Carbon Dioxide 19 L BUN 23 H Creatinine Glucose 160 H POC Glucose 168 H Calcium 8.0 L Phosphorus Magnesium AST Alkaline Phosphatase C-Reactive Protein Total Protein Albumin Lipase Vitamin B12 TSH Urine WBC (Auto) Urine Chloride Urine Total Protein Crossmatch 10/27/16 10/27/16 10/27/16 11:59 18:35 23:48 WBC RBC Hgb Hct MCV RDW Plt Count Lymph % (Auto) [place] % (Auto) [place] # Seg Neutrophils % Seg Neuts % (Manual) Lymphocytes % (Manual) Monocytes % (Manual) Basophils % (Manual) Nucleated RBC % Seg Neutrophils # Seg Neutrophils # Man Lymphocytes # (Manual) Monocytes # (Manual) Eosinophils # (Manual) Basophils # (Manual) PT INR APTT Heparin Anti-Xa Level POC ABG pH POC ABG pCO2 POC ABG pO2 Sodium Potassium Chloride Carbon Dioxide BUN Creatinine Glucose POC Glucose 197 H 318 H 316 H Calcium Phosphorus Magnesium AST Alkaline Phosphatase C-Reactive Protein Total Protein Albumin Lipase Vitamin B12 TSH Urine WBC (Auto) Urine Chloride Urine Total Protein Crossmatch 10/28/16 10/28/16 10/28/16 03:13 04:10 04:10 WBC 18.8 H RBC 2.64 L Hgb 8.1 L Hct 26.1 L MCV 99 H RDW 16.2 H Plt Count 544 H Lymph % (Auto) [place] % (Auto) [place] # Seg Neutrophils % Seg Neuts % (Manual) Lymphocytes % (Manual) Monocytes % (Manual) Basophils % (Manual) Nucleated RBC % Seg Neutrophils # Seg Neutrophils # Man Lymphocytes # (Manual) Monocytes # (Manual) Eosinophils # (Manual) Basophils # (Manual) PT INR APTT Heparin Anti-Xa Level POC ABG pH POC ABG pCO2 POC ABG pO2 Sodium Potassium Chloride Carbon Dioxide 21 L BUN 24 H Creatinine Glucose 302 H POC Glucose 304 H Calcium 7.7 L Phosphorus Magnesium AST Alkaline Phosphatase C-Reactive Protein Total Protein Albumin Lipase Vitamin B12 TSH Urine WBC (Auto) Urine Chloride Urine Total Protein Crossmatch 10/28/16 10/28/16 10/28/16 04:10 12:36 18:27 WBC RBC Hgb Hct MCV RDW Plt Count Lymph % (Auto) [place] % (Auto) [place] # Seg Neutrophils % Seg Neuts % (Manual) Lymphocytes % (Manual) Monocytes % (Manual) Basophils % (Manual) Nucleated RBC % Seg Neutrophils # Seg Neutrophils # Man Lymphocytes # (Manual) Monocytes # (Manual) Eosinophils # (Manual) Basophils # (Manual) PT INR APTT Heparin Anti-Xa Level 0.20 L POC ABG pH POC ABG pCO2 POC ABG pO2 Sodium Potassium Chloride Carbon Dioxide BUN Creatinine Glucose POC Glucose 205 H 339 H Calcium Phosphorus Magnesium AST Alkaline Phosphatase C-Reactive Protein Total Protein Albumin Lipase Vitamin B12 TSH Urine WBC (Auto) Urine Chloride Urine Total Protein Crossmatch 10/29/16 10/29/16 10/29/16 01:05 06:19 09:30 WBC 20.3 H RBC 2.80 L Hgb 8.5 L Hct 26.7 L MCV RDW 15.4 H Plt Count 571 H Lymph % (Auto) [place] % (Auto) [place] # Seg Neutrophils % Seg Neuts % (Manual) 75.0 H Lymphocytes % (Manual) 4.0 L Monocytes % (Manual) Basophils % (Manual) Nucleated RBC % Seg Neutrophils # Seg Neutrophils # Man 15.2 H Lymphocytes # (Manual) 0.8 L Monocytes # (Manual) Eosinophils # (Manual) Basophils # (Manual) PT INR APTT Heparin Anti-Xa Level POC ABG pH POC ABG pCO2 POC ABG pO2 Sodium Potassium Chloride Carbon Dioxide BUN Creatinine Glucose POC Glucose 275 H 179 H Calcium Phosphorus Magnesium AST Alkaline Phosphatase C-Reactive Protein Total Protein Albumin Lipase Vitamin B12 TSH Urine WBC (Auto) Urine Chloride Urine Total Protein Crossmatch 10/29/16 10/29/16 10/29/16 11:46 15:18 17:55 WBC RBC Hgb Hct MCV RDW Plt Count Lymph % (Auto) [place] % (Auto) [place] # Seg Neutrophils % Seg Neuts % (Manual) Lymphocytes % (Manual) Monocytes % (Manual) Basophils % (Manual) Nucleated RBC % Seg Neutrophils # Seg Neutrophils # Man Lymphocytes # (Manual) Monocytes # (Manual) Eosinophils # (Manual) Basophils # (Manual) PT INR APTT Heparin Anti-Xa Level 1.15 H POC ABG pH POC ABG pCO2 POC ABG pO2 Sodium Potassium Chloride Carbon Dioxide BUN Creatinine Glucose POC Glucose 122 H 255 H Calcium Phosphorus Magnesium AST Alkaline Phosphatase C-Reactive Protein Total Protein Albumin Lipase Vitamin B12 TSH Urine WBC (Auto) Urine Chloride Urine Total Protein Crossmatch 10/30/16 10/30/16 10/30/16 00:10 05:30 05:30 WBC 19.8 H RBC 2.51 L Hgb 7.7 L Hct 24.1 L MCV RDW 15.5 H Plt Count 534 H Lymph % (Auto) [place] % (Auto) [place] # Seg Neutrophils % Seg Neuts % (Manual) Lymphocytes % (Manual) Monocytes % (Manual) Basophils % (Manual) Nucleated RBC % Seg Neutrophils # Seg Neutrophils # Man Lymphocytes # (Manual) Monocytes # (Manual) Eosinophils # (Manual) Basophils # (Manual) PT INR APTT Heparin Anti-Xa Level POC ABG pH POC ABG pCO2 POC ABG pO2 Sodium Potassium Chloride Carbon Dioxide BUN Creatinine Glucose 211 H POC Glucose 202 H Calcium 7.4 L Phosphorus Magnesium AST Alkaline Phosphatase C-Reactive Protein Total Protein Albumin Lipase Vitamin B12 TSH Urine WBC (Auto) Urine Chloride Urine Total Protein Crossmatch 10/30/16 10/30/16 10/30/16 06:32 12:51 17:47 WBC RBC Hgb Hct MCV RDW Plt Count Lymph % (Auto) [place] % (Auto) [place] # Seg Neutrophils % Seg Neuts % (Manual) Lymphocytes % (Manual) Monocytes % (Manual) Basophils % (Manual) Nucleated RBC % Seg Neutrophils # Seg Neutrophils # Man Lymphocytes # (Manual) Monocytes # (Manual) Eosinophils # (Manual) Basophils # (Manual) PT INR APTT Heparin Anti-Xa Level POC ABG pH POC ABG pCO2 POC ABG pO2 Sodium Potassium Chloride Carbon Dioxide BUN Creatinine Glucose POC Glucose 207 H 218 H 169 H Calcium Phosphorus Magnesium AST Alkaline Phosphatase C-Reactive Protein Total Protein Albumin Lipase Vitamin B12 TSH Urine WBC (Auto) Urine Chloride Urine Total Protein Crossmatch 10/30/16 10/31/16 10/31/16 23:59 05:25 11:21 WBC RBC Hgb Hct MCV RDW Plt Count Lymph % (Auto) [place] % (Auto) [place] # Seg Neutrophils % Seg Neuts % (Manual) Lymphocytes % (Manual) Monocytes % (Manual) Basophils % (Manual) Nucleated RBC % Seg Neutrophils # Seg Neutrophils # Man Lymphocytes # (Manual) Monocytes # (Manual) Eosinophils # (Manual) Basophils # (Manual) PT INR APTT Heparin Anti-Xa Level POC ABG pH POC ABG pCO2 POC ABG pO2 Sodium Potassium Chloride Carbon Dioxide BUN Creatinine Glucose POC Glucose 138 H 127 H 132 H Calcium Phosphorus Magnesium AST Alkaline Phosphatase C-Reactive Protein Total Protein Albumin Lipase Vitamin B12 TSH Urine WBC (Auto) Urine Chloride Urine Total Protein Crossmatch 10/31/16 10/31/16 11/01/16 17:07 23:54 05:47 WBC RBC Hgb Hct MCV RDW Plt Count Lymph % (Auto) [place] % (Auto) [place] # Seg Neutrophils % Seg Neuts % (Manual) Lymphocytes % (Manual) Monocytes % (Manual) Basophils % (Manual) Nucleated RBC % Seg Neutrophils # Seg Neutrophils # Man Lymphocytes # (Manual) Monocytes # (Manual) Eosinophils # (Manual) Basophils # (Manual) PT INR APTT Heparin Anti-Xa Level POC ABG pH POC ABG pCO2 POC ABG pO2 Sodium Potassium Chloride Carbon Dioxide BUN Creatinine Glucose POC Glucose 138 H 153 H 150 H Calcium Phosphorus Magnesium AST Alkaline Phosphatase C-Reactive Protein Total Protein Albumin Lipase Vitamin B12 TSH Urine WBC (Auto) Urine Chloride Urine Total Protein Crossmatch 11/01/16 11/01/16 11/01/16 06:33 06:33 12:16 WBC 19.2 H RBC 2.51 L Hgb 7.9 L Hct 24.8 L MCV 99 H D RDW 16.1 H Plt Count 569 H Lymph % (Auto) [place] % (Auto) [place] # Seg Neutrophils % Seg Neuts % (Manual) Lymphocytes % (Manual) Monocytes % (Manual) Basophils % (Manual) Nucleated RBC % Seg Neutrophils # Seg Neutrophils # Man Lymphocytes # (Manual) Monocytes # (Manual) Eosinophils # (Manual) Basophils # (Manual) PT INR APTT Heparin Anti-Xa Level POC ABG pH POC ABG pCO2 POC ABG pO2 Sodium Potassium 3.5 L Chloride Carbon Dioxide 21 L BUN Creatinine Glucose 137 H POC Glucose 125 H Calcium 7.7 L Phosphorus Magnesium AST Alkaline Phosphatase 148 H C-Reactive Protein Total Protein 6.2 L Albumin 2.0 L Lipase Vitamin B12 TSH Urine WBC (Auto) Urine Chloride Urine Total Protein Crossmatch 11/01/16 11/02/16 11/02/16 17:37 00:05 04:15 WBC RBC Hgb Hct MCV RDW Plt Count Lymph % (Auto) [place] % (Auto) [place] # Seg Neutrophils % Seg Neuts % (Manual) Lymphocytes % (Manual) Monocytes % (Manual) Basophils % (Manual) Nucleated RBC % Seg Neutrophils # Seg Neutrophils # Man Lymphocytes # (Manual) Monocytes # (Manual) Eosinophils # (Manual) Basophils # (Manual) PT INR APTT Heparin Anti-Xa Level < 0.10 L POC ABG pH POC ABG pCO2 POC ABG pO2 Sodium Potassium 3.2 L Chloride Carbon Dioxide BUN 6 L Creatinine Glucose 135 H POC Glucose 164 H Calcium 7.5 L Phosphorus Magnesium AST Alkaline Phosphatase 132 H C-Reactive Protein Total Protein 6.2 L Albumin 1.8 L Lipase Vitamin B12 TSH Urine WBC (Auto) Urine Chloride Urine Total Protein Crossmatch 11/02/16 11/02/16 11/02/16 04:15 05:54 12:15 WBC 17.7 H RBC 2.43 L Hgb 7.6 L Hct 23.5 L MCV RDW 15.9 H Plt Count 502 H Lymph % (Auto) [place] % (Auto) [place] # Seg Neutrophils % Seg Neuts % (Manual) 84.0 H Lymphocytes % (Manual) 11.0 L Monocytes % (Manual) Basophils % (Manual) Nucleated RBC % 1.0 H Seg Neutrophils # Seg Neutrophils # Man 14.9 H Lymphocytes # (Manual) Monocytes # (Manual) Eosinophils # (Manual) Basophils # (Manual) PT INR APTT Heparin Anti-Xa Level POC ABG pH POC ABG pCO2 POC ABG pO2 Sodium Potassium Chloride Carbon Dioxide BUN Creatinine Glucose POC Glucose 152 H 137 H Calcium Phosphorus Magnesium AST Alkaline Phosphatase C-Reactive Protein Total Protein Albumin Lipase Vitamin B12 TSH Urine WBC (Auto) Urine Chloride Urine Total Protein Crossmatch 11/02/16 11/03/16 11/03/16 17:00 00:05 00:05 WBC RBC Hgb Hct MCV RDW Plt Count Lymph % (Auto) [place] % (Auto) [place] # Seg Neutrophils % Seg Neuts % (Manual) Lymphocytes % (Manual) Monocytes % (Manual) Basophils % (Manual) Nucleated RBC % Seg Neutrophils # Seg Neutrophils # Man Lymphocytes # (Manual) Monocytes # (Manual) Eosinophils # (Manual) Basophils # (Manual) PT INR APTT Heparin Anti-Xa Level POC ABG pH POC ABG pCO2 POC ABG pO2 Sodium Potassium Chloride Carbon Dioxide 20 L BUN 5 L Creatinine Glucose 139 H POC Glucose 161 H Calcium 6.7 L Phosphorus Magnesium 1.2 L AST Alkaline Phosphatase C-Reactive Protein Total Protein Albumin Lipase Vitamin B12 TSH Urine WBC (Auto) Urine Chloride Urine Total Protein Crossmatch 11/03/16 11/03/16 11/03/16 00:05 02:05 04:23 WBC 15.9 H 14.0 H RBC 1.93 L 2.38 L Hgb 5.9 L* 7.3 L Hct 18.9 L* 23.1 L MCV 98 H RDW 15.9 H 15.9 H Plt Count Lymph % (Auto) [place] % (Auto) [place] # Seg Neutrophils % Seg Neuts % (Manual) 85.0 H Lymphocytes % (Manual) 4.0 L Monocytes % (Manual) Basophils % (Manual) Nucleated RBC % Seg Neutrophils # Seg Neutrophils # Man 13.5 H Lymphocytes # (Manual) 0.6 L Monocytes # (Manual) Eosinophils # (Manual) Basophils # (Manual) PT INR APTT Heparin Anti-Xa Level POC ABG pH POC ABG pCO2 POC ABG pO2 Sodium Potassium Chloride Carbon Dioxide BUN 5 L Creatinine Glucose 127 H POC Glucose Calcium 7.2 L Phosphorus Magnesium AST Alkaline Phosphatase C-Reactive Protein Total Protein 5.8 L Albumin 1.5 L Lipase Vitamin B12 TSH Urine WBC (Auto) Urine Chloride Urine Total Protein Crossmatch 11/03/16 11/03/16 11/03/16 09:14 09:27 11:54 WBC RBC Hgb Hct MCV RDW Plt Count Lymph % (Auto) [place] % (Auto) [place] # Seg Neutrophils % Seg Neuts % (Manual) Lymphocytes % (Manual) Monocytes % (Manual) Basophils % (Manual) Nucleated RBC % Seg Neutrophils # Seg Neutrophils # Man Lymphocytes # (Manual) Monocytes # (Manual) Eosinophils # (Manual) Basophils # (Manual) PT INR APTT Heparin Anti-Xa Level 0.11 L POC ABG pH POC ABG pCO2 POC ABG pO2 Sodium Potassium Chloride Carbon Dioxide BUN 5 L Creatinine Glucose 111 H POC Glucose 139 H Calcium 6.7 L Phosphorus Magnesium AST Alkaline Phosphatase C-Reactive Protein Total Protein Albumin Lipase Vitamin B12 TSH Urine WBC (Auto) Urine Chloride Urine Total Protein Crossmatch 11/03/16 11/03/16 11/03/16 16:26 18:01 18:01 WBC RBC Hgb Hct MCV RDW Plt Count Lymph % (Auto) [place] % (Auto) [place] # Seg Neutrophils % Seg Neuts % (Manual) Lymphocytes % (Manual) Monocytes % (Manual) Basophils % (Manual) Nucleated RBC % Seg Neutrophils # Seg Neutrophils # Man Lymphocytes # (Manual) Monocytes # (Manual) Eosinophils # (Manual) Basophils # (Manual) PT INR APTT Heparin Anti-Xa Level 2.00 H POC ABG pH POC ABG pCO2 POC ABG pO2 Sodium Potassium Chloride Carbon Dioxide BUN Creatinine Glucose POC Glucose 142 H Calcium Phosphorus Magnesium AST Alkaline Phosphatase C-Reactive Protein Total Protein Albumin Lipase Vitamin B12 TSH Urine WBC (Auto) Urine Chloride Urine Total Protein Crossmatch See Detail 11/04/16 11/04/16 11/04/16 02:15 02:15 06:35 WBC 11.8 H RBC 2.39 L Hgb 7.4 L Hct 23.1 L MCV RDW 15.9 H Plt Count Lymph % (Auto) [place] % (Auto) [place] # Seg Neutrophils % Seg Neuts % (Manual) 76.0 H Lymphocytes % (Manual) 12.0 L Monocytes % (Manual) 9.0 H Basophils % (Manual) Nucleated RBC % Seg Neutrophils # Seg Neutrophils # Man 9.0 H Lymphocytes # (Manual) Monocytes # (Manual) 1.1 H Eosinophils # (Manual) Basophils # (Manual) PT INR APTT Heparin Anti-Xa Level < 0.10 L POC ABG pH POC ABG pCO2 POC ABG pO2 Sodium Potassium Chloride Carbon Dioxide 21 L BUN 5 L Creatinine Glucose 112 H POC Glucose Calcium 6.8 L Phosphorus Magnesium AST Alkaline Phosphatase C-Reactive Protein Total Protein 5.7 L Albumin 1.7 L Lipase Vitamin B12 TSH Urine WBC (Auto) Urine Chloride Urine Total Protein Crossmatch 11/04/16 11/04/16 11/04/16 10:51 12:58 15:04 WBC RBC Hgb Hct MCV RDW Plt Count Lymph % (Auto) [place] % (Auto) [place] # Seg Neutrophils % Seg Neuts % (Manual) Lymphocytes % (Manual) Monocytes % (Manual) Basophils % (Manual) Nucleated RBC % Seg Neutrophils # Seg Neutrophils # Man Lymphocytes # (Manual) Monocytes # (Manual) Eosinophils # (Manual) Basophils # (Manual) PT INR APTT Heparin Anti-Xa Level 1.05 H POC ABG pH POC ABG pCO2 33.7 L POC ABG pO2 60 L Sodium Potassium Chloride Carbon Dioxide BUN Creatinine Glucose POC Glucose 118 H Calcium Phosphorus Magnesium AST Alkaline Phosphatase C-Reactive Protein Total Protein Albumin Lipase Vitamin B12 TSH Urine WBC (Auto) Urine Chloride Urine Total Protein Crossmatch 11/04/16 11/04/16 11/05/16 17:20 20:31 02:30 WBC RBC Hgb Hct MCV RDW Plt Count Lymph % (Auto) [place] % (Auto) [place] # Seg Neutrophils % Seg Neuts % (Manual) Lymphocytes % (Manual) Monocytes % (Manual) Basophils % (Manual) Nucleated RBC % Seg Neutrophils # Seg Neutrophils # Man Lymphocytes # (Manual) Monocytes # (Manual) Eosinophils # (Manual) Basophils # (Manual) PT INR APTT Heparin Anti-Xa Level POC ABG pH POC ABG pCO2 POC ABG pO2 Sodium Potassium 3.5 L Chloride Carbon Dioxide 18 L BUN 5 L Creatinine 0.6 L Glucose 110 H POC Glucose 228 H 169 H Calcium 7.1 L Phosphorus Magnesium AST Alkaline Phosphatase C-Reactive Protein Total Protein Albumin 1.9 L Lipase Vitamin B12 TSH Urine WBC (Auto) Urine Chloride Urine Total Protein Crossmatch 11/05/16 11/05/16 11/05/16 02:30 17:52 21:07 WBC 14.1 H RBC Hgb Hct MCV RDW 16.7 H Plt Count Lymph % (Auto) [place] % (Auto) [place] # Seg Neutrophils % Seg Neuts % (Manual) 80.0 H Lymphocytes % (Manual) 6.0 L Monocytes % (Manual) 8.0 H Basophils % (Manual) Nucleated RBC % Seg Neutrophils # Seg Neutrophils # Man 11.3 H Lymphocytes # (Manual) 0.8 L Monocytes # (Manual) 1.1 H Eosinophils # (Manual) Basophils # (Manual) PT INR APTT Heparin Anti-Xa Level < 0.10 L POC ABG pH POC ABG pCO2 POC ABG pO2 Sodium Potassium Chloride Carbon Dioxide BUN Creatinine Glucose POC Glucose 174 H Calcium Phosphorus Magnesium AST Alkaline Phosphatase C-Reactive Protein Total Protein Albumin Lipase Vitamin B12 TSH Urine WBC (Auto) Urine Chloride Urine Total Protein Crossmatch 11/05/16 11/06/16 11/06/16 23:30 05:00 05:00 WBC 15.2 H RBC 3.29 L Hgb 10.0 L Hct MCV RDW 16.9 H Plt Count Lymph % (Auto) [place] % (Auto) [place] # Seg Neutrophils % Seg Neuts % (Manual) Lymphocytes % (Manual) Monocytes % (Manual) Basophils % (Manual) Nucleated RBC % Seg Neutrophils # Seg Neutrophils # Man Lymphocytes # (Manual) Monocytes # (Manual) Eosinophils # (Manual) Basophils # (Manual) PT INR APTT Heparin Anti-Xa Level 0.94 H POC ABG pH POC ABG pCO2 POC ABG pO2 Sodium Potassium Chloride Carbon Dioxide BUN Creatinine Glucose POC Glucose 131 H Calcium Phosphorus Magnesium AST Alkaline Phosphatase C-Reactive Protein Total Protein Albumin Lipase Vitamin B12 TSH Urine WBC (Auto) Urine Chloride Urine Total Protein Crossmatch 11/06/16 11/06/16 11/06/16 05:00 11:45 18:23 WBC RBC Hgb Hct MCV RDW Plt Count Lymph % (Auto) [place] % (Auto) [place] # Seg Neutrophils % Seg Neuts % (Manual) Lymphocytes % (Manual) Monocytes % (Manual) Basophils % (Manual) Nucleated RBC % Seg Neutrophils # Seg Neutrophils # Man Lymphocytes # (Manual) Monocytes # (Manual) Eosinophils # (Manual) Basophils # (Manual) PT INR APTT Heparin Anti-Xa Level POC ABG pH POC ABG pCO2 POC ABG pO2 Sodium Potassium 3.5 L Chloride 107.1 H Carbon Dioxide 20 L BUN 4 L Creatinine 0.6 L Glucose 104 H POC Glucose 141 H 255 H Calcium 6.7 L Phosphorus Magnesium AST Alkaline Phosphatase C-Reactive Protein Total Protein Albumin Lipase Vitamin B12 TSH Urine WBC (Auto) Urine Chloride Urine Total Protein Crossmatch 11/06/16 11/06/16 11/07/16 22:07 23:07 11:41 WBC RBC Hgb Hct MCV RDW Plt Count Lymph % (Auto) [place] % (Auto) [place] # Seg Neutrophils % Seg Neuts % (Manual) Lymphocytes % (Manual) Monocytes % (Manual) Basophils % (Manual) Nucleated RBC % Seg Neutrophils # Seg Neutrophils # Man Lymphocytes # (Manual) Monocytes # (Manual) Eosinophils # (Manual) Basophils # (Manual) PT INR APTT Heparin Anti-Xa Level 0.80 H POC ABG pH POC ABG pCO2 POC ABG pO2 Sodium Potassium Chloride Carbon Dioxide BUN Creatinine Glucose POC Glucose 183 H 132 H Calcium Phosphorus Magnesium AST Alkaline Phosphatase C-Reactive Protein Total Protein Albumin Lipase Vitamin B12 TSH Urine WBC (Auto) Urine Chloride Urine Total Protein Crossmatch 11/07/16 11/07/16 11/07/16 12:17 17:05 17:58 WBC RBC Hgb Hct MCV RDW Plt Count Lymph % (Auto) [place] % (Auto) [place] # Seg Neutrophils % Seg Neuts % (Manual) Lymphocytes % (Manual) Monocytes % (Manual) Basophils % (Manual) Nucleated RBC % Seg Neutrophils # Seg Neutrophils # Man Lymphocytes # (Manual) Monocytes # (Manual) Eosinophils # (Manual) Basophils # (Manual) PT INR APTT Heparin Anti-Xa Level 0.87 H POC ABG pH 7.324 L POC ABG pCO2 POC ABG pO2 Sodium Potassium Chloride Carbon Dioxide BUN Creatinine Glucose POC Glucose 158 H Calcium Phosphorus Magnesium AST Alkaline Phosphatase C-Reactive Protein Total Protein Albumin Lipase Vitamin B12 TSH Urine WBC (Auto) Urine Chloride Urine Total Protein Crossmatch 11/07/16 11/07/16 11/07/16 23:26 Unknown Unknown WBC 12.3 H RBC 2.96 L Hgb 9.1 L Hct 27.9 L MCV RDW 16.8 H Plt Count Lymph % (Auto) [place] % (Auto) [place] # Seg Neutrophils % Seg Neuts % (Manual) 80.0 H Lymphocytes % (Manual) 7.0 L Monocytes % (Manual) Basophils % (Manual) Nucleated RBC % Seg Neutrophils # Seg Neutrophils # Man 9.8 H Lymphocytes # (Manual) 0.9 L Monocytes # (Manual) Eosinophils # (Manual) Basophils # (Manual) PT INR APTT Heparin Anti-Xa Level POC ABG pH POC ABG pCO2 POC ABG pO2 Sodium Potassium Chloride Carbon Dioxide 19 L BUN Creatinine Glucose 106 H POC Glucose 130 H Calcium 6.9 L Phosphorus Magnesium AST Alkaline Phosphatase C-Reactive Protein Total Protein Albumin Lipase Vitamin B12 TSH Urine WBC (Auto) Urine Chloride Urine Total Protein Crossmatch 11/07/16 11/08/16 11/08/16 Unknown 05:14 05:20 WBC 12.4 H RBC 3.04 L Hgb 9.2 L Hct 28.8 L MCV RDW 16.6 H Plt Count Lymph % (Auto) [place] % (Auto) [place] # Seg Neutrophils % Seg Neuts % (Manual) 77.0 H Lymphocytes % (Manual) 5.0 L Monocytes % (Manual) Basophils % (Manual) 2.0 H Nucleated RBC % Seg Neutrophils # Seg Neutrophils # Man 9.5 H Lymphocytes # (Manual) 0.6 L Monocytes # (Manual) Eosinophils # (Manual) Basophils # (Manual) 0.2 H PT INR APTT Heparin Anti-Xa Level 0.90 H POC ABG pH POC ABG pCO2 POC ABG pO2 Sodium Potassium Chloride Carbon Dioxide BUN Creatinine Glucose POC Glucose 204 H Calcium Phosphorus Magnesium AST Alkaline Phosphatase C-Reactive Protein Total Protein Albumin Lipase Vitamin B12 TSH Urine WBC (Auto) Urine Chloride Urine Total Protein Crossmatch 11/08/16 05:20 WBC RBC Hgb Hct MCV RDW Plt Count Lymph % (Auto) [place] % (Auto) [place] # Seg Neutrophils % Seg Neuts % (Manual) Lymphocytes % (Manual) Monocytes % (Manual) Basophils % (Manual) Nucleated RBC % Seg Neutrophils # Seg Neutrophils # Man Lymphocytes # (Manual) Monocytes # (Manual) Eosinophils # (Manual) Basophils # (Manual) PT INR APTT Heparin Anti-Xa Level POC ABG pH POC ABG pCO2 POC ABG pO2 Sodium 136 L Potassium Chloride Carbon Dioxide 19 L BUN Creatinine Glucose 192 H POC Glucose Calcium 7.1 L Phosphorus Magnesium AST Alkaline Phosphatase C-Reactive Protein Total Protein Albumin Lipase Vitamin B12 TSH Urine WBC (Auto) Urine Chloride Urine Total Protein Crossmatch Allied health notes reviewed: RT
[2016-11-08 12:24] LABS: ISTAT Base Excess -6; ISTAT HCO3 19.1; ISTAT PCO2 33.7 (35-45); ISTAT PH 7.361 (7.35-7.45); ISTAT PO2 90 (80-105); ISTAT SO2 97; ISTAT TCO2 20
--- NOTE | 2016-11-08 13:11 | Progress Note ---
Assessment and Plan Assessment and plan: 1. Acute respiratory failure with hypercapnia. Vent supported. s/p Trach and PEG. Continue with bronchodilators and wean as tolerated. 2. Diabetes mellitus type II. Continue Sliding scale insulin 3. Sepsis- Leukocytosis Improving Suspected due to UTI, urine has only grown Paula, sputum cultures grew group B strep, continue broad-spectrum antibiotics, infectious disease input appreciated 4. 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/right lower extremity gangrene. The patient is status post recent right below the knee amputation. Patient currently on heparin drip. 5. Hypokalemia: Supplement potassium as needed 6. Toxic metabolic encephalopathy. Continue supportive care. 7. Sinus Tachycardia. Physiologic secondary to sepsis. 8. Anemia. Multifactorial including sepsis. s/p transfusion of PRBCs. Continue to follow H&H. 9. RUE DVT. Patient currently on heparin drip. History Interval history: No new issues overnight. Patient reportedly with increased secretions per RT. Nursing reports right upper extremity swelling. Hospitalist Physical - Constitutional Vitals: Temp Pulse Resp BP Pulse Ox 100 F H 92 H 17 115/53 100 11/08/16 08:00 11/08/16 13:00 11/08/16 13:00 11/08/16 13:00 11/08/16 12:10 General appearance: Present: no acute distress - EENT Eyes: Present: PERRL, EOM intact ENT: hearing intact, clear oral mucosa, dentition normal - Neck Neck: Present: supple, normal ROM - Respiratory Respiratory effort: normal Respiratory: bilateral: CTA - Cardiovascular Rhythm: regular Heart Sounds: Present: S1 & S2. Absent: gallop, rub - Extremities Extremities: no ischemia, No edema, Full ROM - Abdominal General gastrointestinal: soft, non-tender, non-distended, normal bowel sounds - Integumentary Integumentary: Present: clear, warm, dry - Neurologic Neurologic: CNII-XII intact, moves all extremities Results - Labs CBC & Chem 7: 11/08/16 05:20 11/08/16 05:20 Labs: Laboratory Last Values WBC 12.4 K/mm3 (4.5-11.0) H 11/08/16 05:20 RBC 3.04 M/mm3 (3.65-5.03) L 11/08/16 05:20 Hgb 9.2 gm/dl (10.1-14.3) L 11/08/16 05:20 Hct 28.8 % (30.3-42.9) L 11/08/16 05:20 MCV 95 fl (79-97) 11/08/16 05:20 MCH 30 pg (28-32) 11/08/16 05:20 MCHC 32 % (30-34) 11/08/16 05:20 RDW 16.6 % (13.2-15.2) H 11/08/16 05:20 Plt Count 270 K/mm3 (140-440) 11/08/16 05:20 Lymph % (Auto) [employer]ing 11/04/16 02:15 [place] % (Auto) [employer] 11/04/16 02:15 Eos % (Auto) [employer] 11/04/16 02:15 Baso % (Auto) [employer] 11/04/16 02:15 Lymph # [employer] 11/04/16 02:15 [place] # [employer] Operator [employer]ing 11/04/16 02:15 Eos # [employer]ing 11/04/16 02:15 Baso # [employer] 11/04/16 02:15 Add Manual Diff Complete 11/08/16 05:20 Total Counted 100 11/08/16 05:20 Seg Neutrophils % [employer] 11/04/16 02:15 Seg Neuts % (Manual) 77.0 % (40.0-70.0) H 11/08/16 05:20 Band Neutrophils % 9.0 % 11/08/16 05:20 Lymphocytes % (Manual) 5.0 % (13.4-35.0) L 11/08/16 05:20 Reactive Lymphs % (Man) 0 % 11/08/16 05:20 Monocytes % (Manual) 5.0 % (0.0-7.3) 11/08/16 05:20 Eosinophils % (Manual) 2.0 % (0.0-4.3) 11/08/16 05:20 Basophils % (Manual) 2.0 % (0.0-1.8) H 11/08/16 05:20 Metamyelocytes % 0 % 11/08/16 05:20 Myelocytes % 0 % 11/08/16 05:20 Promyelocytes % 0 % 11/08/16 05:20 Blast Cells % 0 % 11/08/16 05:20 Nucleated RBC % Not Reportable 11/08/16 05:20 Seg Neutrophils # [employer] 11/04/16 02:15 Seg Neutrophils # Man 9.5 K/mm3 (1.8-7.7) H 11/08/16 05:20 Band Neutrophils # 1.1 K/mm3 11/08/16 05:20 Lymphocytes # (Manual) 0.6 K/mm3 (1.2-5.4) L 11/08/16 05:20 Abs React Lymphs (Man) 0.0 K/mm3 11/08/16 05:20 Monocytes # (Manual) 0.6 K/mm3 (0.0-0.8) 11/08/16 05:20 Eosinophils # (Manual) 0.2 K/mm3 (0.0-0.4) 11/08/16 05:20 Basophils # (Manual) 0.2 K/mm3 (0.0-0.1) H 11/08/16 05:20 Metamyelocytes # 0.0 K/mm3 11/08/16 05:20 Myelocytes # 0.0 K/mm3 11/08/16 05:20 Promyelocytes # 0.0 K/mm3 11/08/16 05:20 Blast Cells # 0.0 K/mm3 11/08/16 05:20 Pathologist Review 10/29/16 09:30 WBC Morphology Not Reportable 11/08/16 05:20 Hypersegmented Neuts Not Reportable 11/08/16 05:20 Hyposegmented Neuts Not Reportable 11/08/16 05:20 Hypogranular Neuts Not Reportable 11/08/16 05:20 Hypersegmented Polys TNR 10/17/16 07:08 Smudge Cells Not Reportable 11/08/16 05:20 Toxic Granulation Not Reportable 11/08/16 05:20 Toxic Vacuolation Not Reportable 11/08/16 05:20 Dohle Bodies Not Reportable 11/08/16 05:20 Pelger-Huet Anomaly Not Reportable 11/08/16 05:20 [place] Rods Not Reportable 11/08/16 05:20 Platelet Estimate Appears normal 11/08/16 05:20 Clumped Platelets Not Reportable 11/08/16 05:20 Plt Clumps, EDTA Not Reportable 11/08/16 05:20 Large Platelets Not Reportable 11/08/16 05:20 Giant Platelets Not Reportable 11/08/16 05:20 Platelet Satelliting Not Reportable 11/08/16 05:20 Plt Morphology Comment Not Reportable 11/08/16 05:20 RBC Morphology Not Reportable 11/08/16 05:20 Dimorphic RBCs Not Reportable 11/08/16 05:20 Polychromasia 1+ 11/08/16 05:20 Hypochromasia Not Reportable 11/08/16 05:20 Poikilocytosis Not Reportable 11/08/16 05:20 Basophilic Stippling TNR 10/17/16 07:08 Anisocytosis Not Reportable 11/08/16 05:20 Microcytosis Not Reportable 11/08/16 05:20 Macrocytosis Not Reportable 11/08/16 05:20 Spherocytes Not Reportable 11/08/16 05:20 Pappenheimer Bodies Not Reportable 11/08/16 05:20 Sickle Cells Not Reportable 11/08/16 05:20 Target Cells Not Reportable 11/08/16 05:20 Tear Drop Cells Not Reportable 11/08/16 05:20 Ovalocytes Not Reportable 11/08/16 05:20 Stomatocytes Few 11/03/16 00:05 Helmet Cells Not Reportable 11/08/16 05:20 [place] Bodies Not Reportable 11/08/16 05:20 [place] Rings Not Reportable 11/08/16 05:20 [place] Cells Not Reportable 11/08/16 05:20 Bite Cells Not Reportable 11/08/16 05:20 Crenated Cell Not Reportable 11/08/16 05:20 Elliptocytes Not Reportable 11/08/16 05:20 Acanthocytes (Spur) Not Reportable 11/08/16 05:20 Rouleaux Not Reportable 11/08/16 05:20 Hemoglobin C Crystals Not Reportable 11/08/16 05:20 Schistocytes Not Reportable 11/08/16 05:20 Malaria parasites Not Reportable 11/08/16 05:20 David Bodies Not Reportable 11/08/16 05:20 Hem Pathologist Commnt No 11/08/16 05:20 PT 16.4 Sec. (12.2-14.9) H 10/17/16 16:07 INR 1.33 (0.87-1.13) H 10/17/16 16:07 APTT 38.8 Sec. (24.2-36.6) H 10/17/16 16:07 Heparin Anti-Xa Level 0.33 U.I./ml (0.3-0.7) 11/08/16 07:44 POC ABG pH 7.361 (7.35-7.45) 11/08/16 12:10 POC ABG pCO2 33.7 (35-45) L 11/08/16 12:10 POC ABG pO2 90 (80-105) 11/08/16 12:10 POC ABG HCO3 19.1 11/08/16 12:10 POC ABG Total CO2 20 11/08/16 12:10 POC ABG O2 Sat 97 11/08/16 12:10 POC ABG Base Excess -6 11/08/16 12:10 VBG pH 7.020 (7.320-7.420) L* 10/13/16 04:22 FiO2 25 % 11/08/16 12:10 Sodium 136 mmol/L (137-145) L 11/08/16 05:20 Potassium 3.8 mmol/L (3.6-5.0) 11/08/16 05:20 Chloride 105.9 mmol/L (98-107) 11/08/16 05:20 Carbon Dioxide 19 mmol/L (22-30) L 11/08/16 05:20 Anion Gap 15 mmol/L 11/08/16 05:20 BUN 9 mg/dL (7-17) 11/08/16 05:20 Creatinine 0.7 mg/dL (0.7-1.2) 11/08/16 05:20 Estimated GFR > 60 ml/min 11/08/16 05:20 BUN/Creatinine Ratio 12.85 % 11/08/16 05:20 Glucose 192 mg/dL (65-100) H 11/08/16 05:20 POC Glucose 204 (70-105) H 11/08/16 05:14 Osmolality 332 Mosm/kg 10/14/16 07:03 Lactic Acid 1.8 mmol/L (0.7-2.0) 10/14/16 07:03 Calcium 7.1 mg/dL (8.4-10.2) L 11/08/16 05:20 Phosphorus 2.7 mg/dL (2.5-4.5) D 10/21/16 Unknown Magnesium 1.2 mg/dL (1.7-2.3) L 11/03/16 00:05 Total Bilirubin 0.3 mg/dL (0.1-1.2) 11/05/16 02:30 AST 9 units/L (5-40) 11/05/16 02:30 ALT 11 units/L (7-56) 11/05/16 02:30 Alkaline Phosphatase 119 units/L (35-129) 11/05/16 02:30 Ammonia 35.0 umol/L (25-60) 10/13/16 05:40 Total Creatine Kinase 107 units/L (30-135) 10/13/16 04:22 CK-MB (CK-2) 3.1 ng/mL (0.0-4.0) 10/13/16 04:22 CK-MB (CK-2) Rel Index 2.8 (0-4) 10/13/16 04:22 Troponin T < 0.010 ng/mL (0.00-0.029) 10/14/16 18:55 C-Reactive Protein 10.50 mg/dL (0.00-1.30) H 10/13/16 16:14 Total Protein 6.7 g/dL (6.3-8.2) 11/05/16 02:30 Albumin 1.9 g/dL (3.9-5) L 11/05/16 02:30 Albumin/Globulin Ratio 0.4 % 11/05/16 02:30 Amylase 57 units/L (27-131) 10/26/16 20:00 Lipase 58 units/L (13-60) 10/26/16 20:00 Vitamin B12 976.8 pg/mL (211-911) H 10/22/16 10:25 TSH 0.162 mlU/mL (0.270-4.200) L 10/22/16 14:50 Free T4 0.77 ng/dL (0.76-1.46) 10/22/16 14:50 Urine Color Yellow (Yellow) 10/15/16 11:05 Urine Turbidity Cloudy (Clear) 10/15/16 11:05 Urine pH 5.0 (5.0-7.0) 10/15/16 11:05 Ur Specific [place] 1.009 (1.003-1.030) 10/15/16 11:05 Urine Protein 30 mg/dl mg/dL (Negative) 10/15/16 11:05 Urine Glucose (UA) 150 mg/dL (Negative) 10/15/16 11:05 Urine Ketones Neg mg/dL (Negative) 10/15/16 11:05 Urine Blood Lg (Negative) 10/15/16 11:05 Urine Nitrite Neg (Negative) 10/15/16 11:05 Urine Bilirubin Neg (Negative) 10/15/16 11:05 Urine Urobilinogen < 2.0 mg/dL (<2.0) 10/15/16 11:05 Ur Leukocyte Esterase Neg (Negative) 10/15/16 11:05 Urine WBC (Auto) 7.0 /HPF (0.0-6.0) H 10/15/16 11:05 Urine RBC (Auto) 7.0 /HPF (0.0-6.0) 10/15/16 11:05 U Epithel Cells (Auto) 1.0 /HPF (0-13.0) 10/15/16 11:05 Urine Mucus Few /HPF 10/15/16 11:05 Urine Yeast (Budding) 2+ /HPF 10/15/16 11:05 Urine Osmolality 487 Mosm/kg 10/13/16 Unknown Urine Creatinine < 4.2 mg/dL (0.1-20.0) 10/13/16 Unknown Protein/Creatinin Ratio 0.00 10/13/16 Unknown Urine Sodium 10 mEq/L 10/13/16 Unknown Urine Potassium 1.00 mEq/L 10/13/16 Unknown Urine Chloride 10.0 mEq/L (110-250) L 10/13/16 Unknown Urine Total Protein < 4 mg/dL (5-11.8) L 10/13/16 Unknown Vancomycin Trough 17.7 ug/mL (5.0-20.0) 10/22/16 10:25 Ketones 107.3 mg/dL (0.2-2.8) H 10/13/16 04:22 Blood Type A POSITIVE 11/03/16 18:01 Antibody Screen Negative 11/03/16 18:01 Crossmatch See Detail 11/03/16 18:01
[2016-11-08] MEDS: PEPCID PO SCH ×2 (13:34→21:04)
--- NOTE | 2016-11-08 15:59 | Event Note ---
Date: 11/08/16 Pt sedated on vent. Arousable to verbal stimulus. Does not respond to questions. Venous duplex : prelimb report suggest, RUE VENOUS DUPLEX DONE BEDSIDE. EVIDENCE OF ACUTE DVT IN THE RT.BRACHIAL VEIN AND SVT IN THE RT.CEPHALIC VEIN FROM MID BICEPS UP TO THE PX FOREARM Pt is on Heparin gtt. already Knee imobilizer malpositioned, adjusted. Will check wounds and change bandages tomorrow. Discussed with nurse. They are attempting to slowly wean sedation.
[2016-11-08] MEDS: HEPARIN/ 0.45% NACL-25,000 UNIT/500 ML 25,000 UNITS/500 ML BAG IV SCH (19:57)
[2016-11-08] MEDS: TYLENOL FEEDTUBE PRN (19:58)
--- NOTE | 2016-11-08 20:21 | Progress Note ---
Subjective Date of service: 11/08/16 Principal diagnosis: respiratory failure on mechanical ventilatory support, DKA Interval history: AWAKE. Fever resolved. Found to have dvt right le today. On heparin. S/P surgery. Fever resolving. Vital signs - Temp 98 CHEST - GOOD AIR ENTRY CVS - S1S2 ABD - BS_ LABS See lab section. ASSESSMENT 1. Sepsis 2. dka 3. resp failure 4. htn 5. clostridium difficile colitis 6. bilateral pneumonia 6. RIGHT LEG GANGRENE s/p amputation RECOMMENDATION 1. CONTINUE IV ABX Objective - Constitutional Vitals: Vital Signs Temp Pulse Resp BP Pulse Ox 98.9 F 94 H 20 139/64 100 11/08/16 16:00 11/08/16 19:00 11/08/16 19:58 11/08/16 19:00 11/08/16 19:00 Temperature -Last 24 Hours Temperature 98.9 F Temperature 99.6 F Temperature 100 F Temperature 100.0 F Temperature 100.6 F - Labs CBC & Chem 7: 11/08/16 05:20 11/08/16 05:20 Labs: Abnormal lab results 11/07/16 11/08/16 11/08/16 Range/Units 23:26 05:14 05:20 WBC 12.4 H (4.5-11.0) K/mm3 RBC 3.04 L (3.65-5.03) M/mm3 Hgb 9.2 L (10.1-14.3) gm/dl Hct 28.8 L (30.3-42.9) % RDW 16.6 H (13.2-15.2) % Seg Neuts % (Manual) 77.0 H (40.0-70.0) % Lymphocytes % (Manual) 5.0 L (13.4-35.0) % Basophils % (Manual) 2.0 H (0.0-1.8) % Seg Neutrophils # Man 9.5 H (1.8-7.7) K/mm3 Lymphocytes # (Manual) 0.6 L (1.2-5.4) K/mm3 Basophils # (Manual) 0.2 H (0.0-0.1) K/mm3 POC ABG pCO2 (35-45) Sodium (137-145) mmol/L Carbon Dioxide (22-30) mmol/L Glucose (65-100) mg/dL POC Glucose 130 H 204 H (70-105) Calcium (8.4-10.2) mg/dL 11/08/16 11/08/16 11/08/16 Range/Units 05:20 12:10 13:10 WBC (4.5-11.0) K/mm3 RBC (3.65-5.03) M/mm3 Hgb (10.1-14.3) gm/dl Hct (30.3-42.9) % RDW (13.2-15.2) % Seg Neuts % (Manual) (40.0-70.0) % Lymphocytes % (Manual) (13.4-35.0) % Basophils % (Manual) (0.0-1.8) % Seg Neutrophils # Man (1.8-7.7) K/mm3 Lymphocytes # (Manual) (1.2-5.4) K/mm3 Basophils # (Manual) (0.0-0.1) K/mm3 POC ABG pCO2 33.7 L (35-45) Sodium 136 L (137-145) mmol/L Carbon Dioxide 19 L (22-30) mmol/L Glucose 192 H (65-100) mg/dL POC Glucose 180 H (70-105) Calcium 7.1 L (8.4-10.2) mg/dL
[2016-11-09] MEDS: ZOFRAN IV PRN (05:00)
[2016-11-09] MEDS: TYLENOL FEEDTUBE PRN ×2 (05:15→16:12)
[2016-11-09] MEDS: LOPRESSOR FEEDTUBE SCH ×3 (05:16→21:19)
[2016-11-09] MEDS: REGLAN IV SCH ×4 (05:17→23:13)
[2016-11-09] MEDS: CLEOCIN 600 MG/50 mL 600 MG/50 ML BAG IV SCH ×3 (05:18→21:17)
[2016-11-09 05:50] LABS: Hematocrit 28.2 % (30.3-42.9); Hemoglobin 9.2 gm/dl (10.1-14.3); Mean Corpuscular HGB Conc 33 % (30-34); Mean Corpuscular Hemoglobin 31 pg (28-32); Mean Corpuscular Volume 95 fl (79-97); Platelet Count 266 K/mm3 (140-440); Red Blood Count 2.96 M/mm3 (3.65-5.03); Red Cell Distribution Width 16.4 % (13.2-15.2); White Blood Count 11.5 K/mm3 (4.5-11.0)
[2016-11-09 06:09] LABS: Anion Gap 16 mmol/L; BUN/Creatinine Ratio 11.66; Blood Urea Nitrogen 7 mg/dL (7-17); Calcium 7.3 mg/dL (8.4-10.2); Carbon Dioxide 19 mmol/L (22-30); Chloride 107.6 mmol/L (98-107); Glucose 207 mg/dL (65-100); Potassium 3.4 mmol/L (3.6-5.0); Sodium 139 mmol/L (137-145)
[2016-11-09] MEDS: fentaNYL DRIP Premix 2,000 MCG/100 ML BAG IV SCH ×2 (06:52→13:51)
--- NOTE | 2016-11-09 07:39 | Vascular Lab Report ---
RIGHT UPPER EXTREMITY VENOUS DUPLEX: REASON FOR EXAM: Pain and swelling of the right upper extremity COMMENTS ON THE RIGHT: Acute deep venous thrombosis is noted of the distal brachial vein just above the antecubital fossa. Superficial femoral phlebitis noted that the cephalic vein from the forearm up to the distal bicep.. The remaining veins visualized are freely compressible without evidence of internal echogenicity. Spontaneous and phasic flow is present proximally. COMMENTS ON THE LEFT: The subclavian and internal jugular veins are free of thrombus. IMPRESSION: Acute deep and superficial venous thrombosis in the right upper extremity
[2016-11-09 08:07] LABS: Basophils % (Manual) 0 % (0.0-1.8); Blastocytes % (Manual) 0 %; Diff Status Complete; Ovalocytes Few; Polychromasia Few
[2016-11-09] MEDS: PEPCID PO SCH ×2 (09:28→21:19)
[2016-11-09] MEDS: HEPARIN/ 0.45% NACL-25,000 UNIT/500 ML 25,000 UNITS/500 ML BAG IV SCH (09:29)
--- NOTE | 2016-11-09 11:20 | Progress Note ---
Assessment and Plan - Patient Problems (1) Acute respiratory failure with hypercapnia Current Visit: Yes Status: Acute Plan to address problem: - continue aspiration precautions / VAP bundles - continue bronchodilators and pulmonary toilet - wean oxygen to keep sats > 94% - reduce sedation and allow spontaneous breaths - continue SBT and if tolerates well will begin t-piece as tolerated (2) Altered mental status Current Visit: Yes Status: Acute Qualifiers: Altered mental status type: A Coma depth: C Coma timing: C Plan to address problem: - no active seizures - following clinically - seen by neurology and will follow their recommendations - no seizures on EEG - more appropriate clinically (3) LUCY (acute kidney injury) Current Visit: Yes Status: Acute Plan to address problem: - resolved - follow I's & O's (4) DKA (diabetic ketoacidoses) Current Visit: Yes Status: Acute Qualifiers: Diabetes mellitus type: D Diabetes mellitus complication detail: D Plan to address problem: - resolved - continue SSI (5) Sepsis Current Visit: No Status: Acute Qualifiers: Sepsis type: S Plan to address problem: - continue anti-infectives per ID recs - follow clinically (improved) - trend lactate and CRP prn - improving numbers post amputation (6) Discharge planning issues Current Visit: No Status: Acute Plan to address problem: ...hopefully weans well, tolerates t-piece and can soon transfer out of ICU ...for now remains critically ill on life sustaining treatments including MVS and at high risk for further deterioration including ...30' CCT Subjective Date of service: 11/09/16 Principal diagnosis: respiratory failure on mechanical ventilatory support, DKA Interval history: Seen and examined at bedside; 24 hour events reviewed; nursing and respiratory care staff consulted; no adverse overnight events reported to me; doing better; ob PSV and tolerating well; no emesis or overt aspiration reported; had high tube feeding residuals though; nods head no to pain question Objective Vital Signs - 12hr 11/08/16 11/09/16 11/09/16 23:48 00:00 00:54 Temperature 100.3 F H Pulse Rate 90 91 H Pulse Rate [ 90 From Monitor] Respiratory 16 Rate Blood Pressure 144/63 O2 Sat by Pulse 100 Oximetry 11/09/16 11/09/16 11/09/16 01:00 02:00 03:00 Temperature Pulse Rate 95 H 102 H 101 H Pulse Rate [ From Monitor] Respiratory 16 16 28 H Rate Blood Pressure 149/68 152/74 155/75 O2 Sat by Pulse 100 100 97 Oximetry 11/09/16 11/09/16 11/09/16 04:00 04:01 04:05 Temperature 100.8 F H Pulse Rate 111 H Pulse Rate [ 111 H From Monitor] Respiratory 22 22 Rate Blood Pressure 155/75 O2 Sat by Pulse 99 99 Oximetry 11/09/16 11/09/16 11/09/16 05:00 05:15 05:16 Temperature Pulse Rate 103 H 103 H Pulse Rate [ From Monitor] Respiratory 16 16 Rate Blood Pressure 147/67 147/67 O2 Sat by Pulse 100 Oximetry 11/09/16 11/09/16 11/09/16 06:00 06:04 07:00 Temperature Pulse Rate 105 H 102 H 98 H Pulse Rate [ From Monitor] Respiratory 19 17 Rate Blood Pressure 136/63 136/63 137/57 O2 Sat by Pulse 99 100 99 Oximetry 11/09/16 11/09/16 11/09/16 08:00 08:44 08:51 Temperature 100.9 F H Pulse Rate 93 H 88 92 H Pulse Rate [ From Monitor] Respiratory 19 Rate Blood Pressure 137/59 130/65 130/65 O2 Sat by Pulse 100 100 100 Oximetry 11/09/16 11/09/16 11/09/16 08:59 09:00 10:00 Temperature Pulse Rate 92 H 92 H 89 Pulse Rate [ From Monitor] Respiratory 27 H 28 H 27 H Rate Blood Pressure 130/65 131/60 134/64 O2 Sat by Pulse 100 99 100 Oximetry 11/09/16 11:00 Temperature Pulse Rate 90 Pulse Rate [ From Monitor] Respiratory 27 H Rate Blood Pressure 128/61 O2 Sat by Pulse 100 Oximetry Constitutional: no acute distress, other (? delirium / dementia element) Eyes: non-icteric ENT: oropharynx moist Neck: supple, no lymphadenopathy Effort: mildly labored Ascultation: Bilateral: diminished breath sounds, rales Cardiovascular: regular rate and rhythm, other (tachycardia) Gastrointestinal: normoactive bowel sounds, soft, non-tender, non-distended Integumentary: normal Extremities: no cyanosis, no edema, no ischemia or petechiae, other (cold right foot with digital ischemia) Neurologic: non-focal exam (grossly), pupils equal and round, other (sedated) Psychiatric: other (sedated) CBC and BMP: 11/10/16 04:30 11/10/16 04:30 ABG, PT/INR, D-dimer: ABG POC ABG pH 7.361 (7.35-7.45) 11/08/16 12:10 POC ABG pCO2 33.7 (35-45) L 11/08/16 12:10 POC ABG pO2 90 (80-105) 11/08/16 12:10 POC ABG HCO3 19.1 11/08/16 12:10 POC ABG Total CO2 20 11/08/16 12:10 POC ABG O2 Sat 97 11/08/16 12:10 PT/INR, D-dimer PT 16.4 Sec. (12.2-14.9) H 10/17/16 16:07 INR 1.33 (0.87-1.13) H 10/17/16 16:07 Abnormal lab findings: Abnormal Labs 10/13/16 10/13/16 10/13/16 06:38 06:38 07:23 WBC RBC Hgb Hct MCV RDW Plt Count Lymph % (Auto) [place] % (Auto) [place] # Seg Neutrophils % Seg Neuts % (Manual) Lymphocytes % (Manual) Monocytes % (Manual) Basophils % (Manual) Nucleated RBC % Seg Neutrophils # Seg Neutrophils # Man Lymphocytes # (Manual) Monocytes # (Manual) Eosinophils # (Manual) Basophils # (Manual) PT INR APTT Heparin Anti-Xa Level POC ABG pH POC ABG pCO2 POC ABG pO2 Sodium Potassium 6.2 H* Chloride Carbon Dioxide 8 L* BUN 85 H Creatinine 2.8 H Glucose 602 H* POC Glucose 495 H Calcium 7.9 L Phosphorus 6.9 H D Magnesium 3.0 H AST Alkaline Phosphatase C-Reactive Protein Total Protein Albumin Lipase Vitamin B12 TSH Urine WBC (Auto) Urine Chloride Urine Total Protein Vancomycin Trough Crossmatch 10/13/16 10/13/16 10/13/16 08:49 08:55 10:12 WBC RBC Hgb Hct MCV RDW Plt Count Lymph % (Auto) [place] % (Auto) [place] # Seg Neutrophils % Seg Neuts % (Manual) Lymphocytes % (Manual) Monocytes % (Manual) Basophils % (Manual) Nucleated RBC % Seg Neutrophils # Seg Neutrophils # Man Lymphocytes # (Manual) Monocytes # (Manual) Eosinophils # (Manual) Basophils # (Manual) PT INR APTT Heparin Anti-Xa Level POC ABG pH POC ABG pCO2 POC ABG pO2 Sodium Potassium 5.6 H Chloride Carbon Dioxide 11 L BUN 77 H Creatinine 2.7 H Glucose 457 H POC Glucose > 500 H 424 H Calcium 8.0 L Phosphorus Magnesium AST Alkaline Phosphatase C-Reactive Protein Total Protein Albumin Lipase Vitamin B12 TSH Urine WBC (Auto) Urine Chloride Urine Total Protein Vancomycin Trough Crossmatch 10/13/16 10/13/16 10/13/16 10:44 11:22 12:20 WBC RBC Hgb Hct MCV RDW Plt Count Lymph % (Auto) [place] % (Auto) [place] # Seg Neutrophils % Seg Neuts % (Manual) Lymphocytes % (Manual) Monocytes % (Manual) Basophils % (Manual) Nucleated RBC % Seg Neutrophils # Seg Neutrophils # Man Lymphocytes # (Manual) Monocytes # (Manual) Eosinophils # (Manual) Basophils # (Manual) PT INR APTT Heparin Anti-Xa Level POC ABG pH POC ABG pCO2 POC ABG pO2 Sodium Potassium 5.4 H Chloride Carbon Dioxide 14 L BUN 72 H Creatinine 2.6 H Glucose 383 H POC Glucose 391 H 313 H Calcium 8.2 L Phosphorus Magnesium AST Alkaline Phosphatase C-Reactive Protein Total Protein Albumin Lipase Vitamin B12 TSH Urine WBC (Auto) Urine Chloride Urine Total Protein Vancomycin Trough Crossmatch 10/13/16 10/13/16 10/13/16 13:32 14:44 15:57 WBC RBC Hgb Hct MCV RDW Plt Count Lymph % (Auto) [place] % (Auto) [place] # Seg Neutrophils % Seg Neuts % (Manual) Lymphocytes % (Manual) Monocytes % (Manual) Basophils % (Manual) Nucleated RBC % Seg Neutrophils # Seg Neutrophils # Man Lymphocytes # (Manual) Monocytes # (Manual) Eosinophils # (Manual) Basophils # (Manual) PT INR APTT Heparin Anti-Xa Level POC ABG pH POC ABG pCO2 POC ABG pO2 Sodium Potassium Chloride Carbon Dioxide BUN Creatinine Glucose POC Glucose 296 H 210 H 190 H Calcium Phosphorus Magnesium AST Alkaline Phosphatase C-Reactive Protein Total Protein Albumin Lipase Vitamin B12 TSH Urine WBC (Auto) Urine Chloride Urine Total Protein Vancomycin Trough Crossmatch 10/13/16 10/13/16 10/13/16 16:14 16:14 17:17 WBC RBC Hgb Hct MCV RDW Plt Count Lymph % (Auto) [place] % (Auto) [place] # Seg Neutrophils % Seg Neuts % (Manual) Lymphocytes % (Manual) Monocytes % (Manual) Basophils % (Manual) Nucleated RBC % Seg Neutrophils # Seg Neutrophils # Man Lymphocytes # (Manual) Monocytes # (Manual) Eosinophils # (Manual) Basophils # (Manual) PT INR APTT Heparin Anti-Xa Level POC ABG pH POC ABG pCO2 POC ABG pO2 Sodium Potassium Chloride Carbon Dioxide 17 L BUN 58 H Creatinine 1.8 H Glucose 172 H POC Glucose 193 H Calcium 7.7 L Phosphorus Magnesium AST Alkaline Phosphatase C-Reactive Protein 10.50 H Total Protein Albumin Lipase Vitamin B12 TSH Urine WBC (Auto) Urine Chloride Urine Total Protein Vancomycin Trough Crossmatch 10/13/16 10/13/16 10/13/16 17:55 18:32 19:41 WBC RBC Hgb Hct MCV RDW Plt Count Lymph % (Auto) [place] % (Auto) [place] # Seg Neutrophils % Seg Neuts % (Manual) Lymphocytes % (Manual) Monocytes % (Manual) Basophils % (Manual) Nucleated RBC % Seg Neutrophils # Seg Neutrophils # Man Lymphocytes # (Manual) Monocytes # (Manual) Eosinophils # (Manual) Basophils # (Manual) PT INR APTT Heparin Anti-Xa Level POC ABG pH POC ABG pCO2 30.6 L POC ABG pO2 218 H Sodium Potassium Chloride Carbon Dioxide BUN Creatinine Glucose POC Glucose 192 H 177 H Calcium Phosphorus Magnesium AST Alkaline Phosphatase C-Reactive Protein Total Protein Albumin Lipase Vitamin B12 TSH Urine WBC (Auto) Urine Chloride Urine Total Protein Vancomycin Trough Crossmatch 10/13/16 10/13/16 10/13/16 20:54 22:07 23:13 WBC RBC Hgb Hct MCV RDW Plt Count Lymph % (Auto) [place] % (Auto) [place] # Seg Neutrophils % Seg Neuts % (Manual) Lymphocytes % (Manual) Monocytes % (Manual) Basophils % (Manual) Nucleated RBC % Seg Neutrophils # Seg Neutrophils # Man Lymphocytes # (Manual) Monocytes # (Manual) Eosinophils # (Manual) Basophils # (Manual) PT INR APTT Heparin Anti-Xa Level POC ABG pH POC ABG pCO2 POC ABG pO2 Sodium Potassium Chloride Carbon Dioxide BUN Creatinine Glucose POC Glucose 178 H 160 H 168 H Calcium Phosphorus Magnesium AST Alkaline Phosphatase C-Reactive Protein Total Protein Albumin Lipase Vitamin B12 TSH Urine WBC (Auto) Urine Chloride Urine Total Protein Vancomycin Trough Crossmatch 10/13/16 10/13/16 10/14/16 23:25 Unknown 00:21 WBC RBC Hgb Hct MCV RDW Plt Count Lymph % (Auto) [place] % (Auto) [place] # Seg Neutrophils % Seg Neuts % (Manual) Lymphocytes % (Manual) Monocytes % (Manual) Basophils % (Manual) Nucleated RBC % Seg Neutrophils # Seg Neutrophils # Man Lymphocytes # (Manual) Monocytes # (Manual) Eosinophils # (Manual) Basophils # (Manual) PT INR APTT Heparin Anti-Xa Level POC ABG pH POC ABG pCO2 POC ABG pO2 Sodium 148 H Potassium Chloride 114.6 H Carbon Dioxide 17 L BUN 56 H Creatinine 1.6 H Glucose 151 H POC Glucose 171 H Calcium 7.8 L Phosphorus Magnesium AST Alkaline Phosphatase C-Reactive Protein Total Protein Albumin Lipase Vitamin B12 TSH Urine WBC (Auto) Urine Chloride 10.0 L Urine Total Protein < 4 L Vancomycin Trough Crossmatch 10/14/16 10/14/16 10/14/16 01:22 02:29 03:30 WBC RBC Hgb Hct MCV RDW Plt Count Lymph % (Auto) [place] % (Auto) [place] # Seg Neutrophils % Seg Neuts % (Manual) Lymphocytes % (Manual) Monocytes % (Manual) Basophils % (Manual) Nucleated RBC % Seg Neutrophils # Seg Neutrophils # Man Lymphocytes # (Manual) Monocytes # (Manual) Eosinophils # (Manual) Basophils # (Manual) PT INR APTT Heparin Anti-Xa Level POC ABG pH POC ABG pCO2 POC ABG pO2 Sodium Potassium Chloride Carbon Dioxide BUN Creatinine Glucose POC Glucose 144 H 136 H 143 H Calcium Phosphorus Magnesium AST Alkaline Phosphatase C-Reactive Protein Total Protein Albumin Lipase Vitamin B12 TSH Urine WBC (Auto) Urine Chloride Urine Total Protein Vancomycin Trough Crossmatch 10/14/16 10/14/16 10/14/16 04:28 05:16 05:44 WBC RBC Hgb Hct MCV RDW Plt Count Lymph % (Auto) [place] % (Auto) [place] # Seg Neutrophils % Seg Neuts % (Manual) Lymphocytes % (Manual) Monocytes % (Manual) Basophils % (Manual) Nucleated RBC % Seg Neutrophils # Seg Neutrophils # Man Lymphocytes # (Manual) Monocytes # (Manual) Eosinophils # (Manual) Basophils # (Manual) PT INR APTT Heparin Anti-Xa Level POC ABG pH POC ABG pCO2 28.2 L POC ABG pO2 125 H Sodium Potassium Chloride Carbon Dioxide BUN Creatinine Glucose POC Glucose 133 H 160 H Calcium Phosphorus Magnesium AST Alkaline Phosphatase C-Reactive Protein Total Protein Albumin Lipase Vitamin B12 TSH Urine WBC (Auto) Urine Chloride Urine Total Protein Vancomycin Trough Crossmatch 10/14/16 10/14/16 10/14/16 06:12 06:45 07:03 WBC RBC Hgb Hct MCV RDW Plt Count Lymph % (Auto) [place] % (Auto) [place] # Seg Neutrophils % Seg Neuts % (Manual) Lymphocytes % (Manual) Monocytes % (Manual) Basophils % (Manual) Nucleated RBC % Seg Neutrophils # Seg Neutrophils # Man Lymphocytes # (Manual) Monocytes # (Manual) Eosinophils # (Manual) Basophils # (Manual) PT INR APTT Heparin Anti-Xa Level POC ABG pH POC ABG pCO2 POC ABG pO2 Sodium 149 H Potassium Chloride 115.4 H Carbon Dioxide 17 L BUN 45 H Creatinine 1.5 H Glucose 139 H POC Glucose 149 H Calcium 7.4 L Phosphorus 1.0 L D Magnesium AST Alkaline Phosphatase C-Reactive Protein Total Protein Albumin Lipase Vitamin B12 TSH Urine WBC (Auto) Urine Chloride Urine Total Protein Vancomycin Trough Crossmatch 10/14/16 10/14/16 10/14/16 07:03 08:02 09:16 WBC RBC Hgb Hct MCV RDW Plt Count Lymph % (Auto) [place] % (Auto) [place] # Seg Neutrophils % Seg Neuts % (Manual) Lymphocytes % (Manual) Monocytes % (Manual) Basophils % (Manual) Nucleated RBC % Seg Neutrophils # Seg Neutrophils # Man Lymphocytes # (Manual) Monocytes # (Manual) Eosinophils # (Manual) Basophils # (Manual) PT INR APTT Heparin Anti-Xa Level POC ABG pH POC ABG pCO2 POC ABG pO2 Sodium Potassium Chloride Carbon Dioxide BUN Creatinine Glucose POC Glucose 156 H 158 H Calcium Phosphorus Magnesium AST Alkaline Phosphatase C-Reactive Protein Total Protein Albumin Lipase 738 H Vitamin B12 TSH Urine WBC (Auto) Urine Chloride Urine Total Protein Vancomycin Trough Crossmatch 10/14/16 10/14/16 10/14/16 10:26 11:03 11:57 WBC RBC Hgb Hct MCV RDW Plt Count Lymph % (Auto) [place] % (Auto) [place] # Seg Neutrophils % Seg Neuts % (Manual) Lymphocytes % (Manual) Monocytes % (Manual) Basophils % (Manual) Nucleated RBC % Seg Neutrophils # Seg Neutrophils # Man Lymphocytes # (Manual) Monocytes # (Manual) Eosinophils # (Manual) Basophils # (Manual) PT INR APTT Heparin Anti-Xa Level POC ABG pH 7.198 L POC ABG pCO2 47.5 H POC ABG pO2 Sodium Potassium Chloride Carbon Dioxide BUN Creatinine Glucose POC Glucose 174 H 189 H Calcium Phosphorus Magnesium AST Alkaline Phosphatase C-Reactive Protein Total Protein Albumin Lipase Vitamin B12 TSH Urine WBC (Auto) Urine Chloride Urine Total Protein Vancomycin Trough Crossmatch 10/14/16 10/14/16 10/14/16 12:02 12:02 13:11 WBC 13.4 H RBC 3.60 L Hgb Hct MCV 98 H D RDW 13.1 L Plt Count Lymph % (Auto) [place] % (Auto) [place] # Seg Neutrophils % Seg Neuts % (Manual) Lymphocytes % (Manual) Monocytes % (Manual) Basophils % (Manual) Nucleated RBC % Seg Neutrophils # Seg Neutrophils # Man Lymphocytes # (Manual) Monocytes # (Manual) Eosinophils # (Manual) Basophils # (Manual) PT INR APTT Heparin Anti-Xa Level POC ABG pH POC ABG pCO2 POC ABG pO2 Sodium Potassium Chloride 110.7 H Carbon Dioxide 19 L BUN 38 H Creatinine 1.4 H Glucose 182 H POC Glucose 173 H Calcium 7.5 L Phosphorus Magnesium AST Alkaline Phosphatase C-Reactive Protein Total Protein Albumin Lipase Vitamin B12 TSH Urine WBC (Auto) Urine Chloride Urine Total Protein Vancomycin Trough Crossmatch 10/14/16 10/14/16 10/14/16 14:24 15:31 16:36 WBC RBC Hgb Hct MCV RDW Plt Count Lymph % (Auto) [place] % (Auto) [place] # Seg Neutrophils % Seg Neuts % (Manual) Lymphocytes % (Manual) Monocytes % (Manual) Basophils % (Manual) Nucleated RBC % Seg Neutrophils # Seg Neutrophils # Man Lymphocytes # (Manual) Monocytes # (Manual) Eosinophils # (Manual) Basophils # (Manual) PT INR APTT Heparin Anti-Xa Level POC ABG pH POC ABG pCO2 POC ABG pO2 Sodium Potassium Chloride Carbon Dioxide BUN Creatinine Glucose POC Glucose 123 H 124 H 156 H Calcium Phosphorus Magnesium AST Alkaline Phosphatase C-Reactive Protein Total Protein Albumin Lipase Vitamin B12 TSH Urine WBC (Auto) Urine Chloride Urine Total Protein Vancomycin Trough Crossmatch 10/14/16 10/14/16 10/14/16 17:43 19:00 20:08 WBC RBC Hgb Hct MCV RDW Plt Count Lymph % (Auto) [place] % (Auto) [place] # Seg Neutrophils % Seg Neuts % (Manual) Lymphocytes % (Manual) Monocytes % (Manual) Basophils % (Manual) Nucleated RBC % Seg Neutrophils # Seg Neutrophils # Man Lymphocytes # (Manual) Monocytes # (Manual) Eosinophils # (Manual) Basophils # (Manual) PT INR APTT Heparin Anti-Xa Level POC ABG pH POC ABG pCO2 POC ABG pO2 Sodium Potassium Chloride Carbon Dioxide BUN Creatinine Glucose POC Glucose 154 H 123 H 138 H Calcium Phosphorus Magnesium AST Alkaline Phosphatase C-Reactive Protein Total Protein Albumin Lipase Vitamin B12 TSH Urine WBC (Auto) Urine Chloride Urine Total Protein Vancomycin Trough Crossmatch 10/14/16 10/14/16 10/14/16 21:17 22:25 23:37 WBC RBC Hgb Hct MCV RDW Plt Count Lymph % (Auto) [place] % (Auto) [place] # Seg Neutrophils % Seg Neuts % (Manual) Lymphocytes % (Manual) Monocytes % (Manual) Basophils % (Manual) Nucleated RBC % Seg Neutrophils # Seg Neutrophils # Man Lymphocytes # (Manual) Monocytes # (Manual) Eosinophils # (Manual) Basophils # (Manual) PT INR APTT Heparin Anti-Xa Level POC ABG pH POC ABG pCO2 POC ABG pO2 Sodium Potassium Chloride Carbon Dioxide BUN Creatinine Glucose POC Glucose 148 H 132 H 137 H Calcium Phosphorus Magnesium AST Alkaline Phosphatase C-Reactive Protein Total Protein Albumin Lipase Vitamin B12 TSH Urine WBC (Auto) Urine Chloride Urine Total Protein Vancomycin Trough Crossmatch 10/15/16 10/15/16 10/15/16 00:49 01:53 03:06 WBC RBC Hgb Hct MCV RDW Plt Count Lymph % (Auto) [place] % (Auto) [place] # Seg Neutrophils % Seg Neuts % (Manual) Lymphocytes % (Manual) Monocytes % (Manual) Basophils % (Manual) Nucleated RBC % Seg Neutrophils # Seg Neutrophils # Man Lymphocytes # (Manual) Monocytes # (Manual) Eosinophils # (Manual) Basophils # (Manual) PT INR APTT Heparin Anti-Xa Level POC ABG pH POC ABG pCO2 POC ABG pO2 Sodium Potassium Chloride Carbon Dioxide BUN Creatinine Glucose POC Glucose 132 H 134 H 134 H Calcium Phosphorus Magnesium AST Alkaline Phosphatase C-Reactive Protein Total Protein Albumin Lipase Vitamin B12 TSH Urine WBC (Auto) Urine Chloride Urine Total Protein Vancomycin Trough Crossmatch 10/15/16 10/15/16 10/15/16 04:40 04:46 06:21 WBC RBC Hgb Hct MCV RDW Plt Count Lymph % (Auto) [place] % (Auto) [place] # Seg Neutrophils % Seg Neuts % (Manual) Lymphocytes % (Manual) Monocytes % (Manual) Basophils % (Manual) Nucleated RBC % Seg Neutrophils # Seg Neutrophils # Man Lymphocytes # (Manual) Monocytes # (Manual) Eosinophils # (Manual) Basophils # (Manual) PT INR APTT Heparin Anti-Xa Level POC ABG pH POC ABG pCO2 30.7 L POC ABG pO2 108 H Sodium Potassium Chloride 109.0 H Carbon Dioxide 17 L BUN 27 H Creatinine Glucose 124 H POC Glucose 160 H Calcium 7.5 L Phosphorus Magnesium AST 79 H Alkaline Phosphatase C-Reactive Protein Total Protein 5.5 L Albumin 3.0 L Lipase Vitamin B12 TSH Urine WBC (Auto) Urine Chloride Urine Total Protein Vancomycin Trough Crossmatch 10/15/16 10/15/16 10/15/16 07:12 08:01 09:03 WBC RBC Hgb Hct MCV RDW Plt Count Lymph % (Auto) [place] % (Auto) [place] # Seg Neutrophils % Seg Neuts % (Manual) Lymphocytes % (Manual) Monocytes % (Manual) Basophils % (Manual) Nucleated RBC % Seg Neutrophils # Seg Neutrophils # Man Lymphocytes # (Manual) Monocytes # (Manual) Eosinophils # (Manual) Basophils # (Manual) PT INR APTT Heparin Anti-Xa Level POC ABG pH POC ABG pCO2 POC ABG pO2 Sodium Potassium Chloride Carbon Dioxide BUN Creatinine Glucose POC Glucose 179 H 187 H 165 H Calcium Phosphorus Magnesium AST Alkaline Phosphatase C-Reactive Protein Total Protein Albumin Lipase Vitamin B12 TSH Urine WBC (Auto) Urine Chloride Urine Total Protein Vancomycin Trough Crossmatch 10/15/16 10/15/16 10/15/16 10:06 10:06 10:07 WBC 12.1 H RBC 3.01 L Hgb 9.7 L Hct 29.6 L MCV 98 H RDW Plt Count 129 L Lymph % (Auto) [place] % (Auto) [place] # Seg Neutrophils % Seg Neuts % (Manual) Lymphocytes % (Manual) Monocytes % (Manual) Basophils % (Manual) Nucleated RBC % Seg Neutrophils # Seg Neutrophils # Man Lymphocytes # (Manual) Monocytes # (Manual) Eosinophils # (Manual) Basophils # (Manual) PT INR APTT Heparin Anti-Xa Level POC ABG pH POC ABG pCO2 POC ABG pO2 Sodium Potassium 3.2 L D Chloride 109.6 H Carbon Dioxide 18 L BUN 22 H Creatinine Glucose 127 H POC Glucose 147 H Calcium 7.0 L Phosphorus Magnesium AST Alkaline Phosphatase C-Reactive Protein Total Protein Albumin Lipase Vitamin B12 TSH Urine WBC (Auto) Urine Chloride Urine Total Protein Vancomycin Trough Crossmatch 10/15/16 10/15/16 10/15/16 11:05 11:06 11:57 WBC RBC Hgb Hct MCV RDW Plt Count Lymph % (Auto) [place] % (Auto) [place] # Seg Neutrophils % Seg Neuts % (Manual) Lymphocytes % (Manual) Monocytes % (Manual) Basophils % (Manual) Nucleated RBC % Seg Neutrophils # Seg Neutrophils # Man Lymphocytes # (Manual) Monocytes # (Manual) Eosinophils # (Manual) Basophils # (Manual) PT INR APTT Heparin Anti-Xa Level POC ABG pH 7.305 L POC ABG pCO2 POC ABG pO2 Sodium Potassium Chloride Carbon Dioxide BUN Creatinine Glucose POC Glucose 145 H Calcium Phosphorus Magnesium AST Alkaline Phosphatase C-Reactive Protein Total Protein Albumin Lipase Vitamin B12 TSH Urine WBC (Auto) 7.0 H Urine Chloride Urine Total Protein Vancomycin Trough Crossmatch 10/15/16 10/15/16 10/15/16 12:04 13:59 15:24 WBC RBC Hgb Hct MCV RDW Plt Count Lymph % (Auto) [place] % (Auto) [place] # Seg Neutrophils % Seg Neuts % (Manual) Lymphocytes % (Manual) Monocytes % (Manual) Basophils % (Manual) Nucleated RBC % Seg Neutrophils # Seg Neutrophils # Man Lymphocytes # (Manual) Monocytes # (Manual) Eosinophils # (Manual) Basophils # (Manual) PT INR APTT Heparin Anti-Xa Level POC ABG pH POC ABG pCO2 POC ABG pO2 Sodium Potassium Chloride Carbon Dioxide BUN Creatinine Glucose POC Glucose 123 H 147 H 153 H Calcium Phosphorus Magnesium AST Alkaline Phosphatase C-Reactive Protein Total Protein Albumin Lipase Vitamin B12 TSH Urine WBC (Auto) Urine Chloride Urine Total Protein Vancomycin Trough Crossmatch 10/15/16 10/15/16 10/15/16 16:30 17:34 18:30 WBC RBC Hgb Hct MCV RDW Plt Count Lymph % (Auto) [place] % (Auto) [place] # Seg Neutrophils % Seg Neuts % (Manual) Lymphocytes % (Manual) Monocytes % (Manual) Basophils % (Manual) Nucleated RBC % Seg Neutrophils # Seg Neutrophils # Man Lymphocytes # (Manual) Monocytes # (Manual) Eosinophils # (Manual) Basophils # (Manual) PT INR APTT Heparin Anti-Xa Level POC ABG pH POC ABG pCO2 POC ABG pO2 Sodium Potassium Chloride Carbon Dioxide BUN Creatinine Glucose POC Glucose 223 H 236 H 164 H Calcium Phosphorus Magnesium AST Alkaline Phosphatase C-Reactive Protein Total Protein Albumin Lipase Vitamin B12 TSH Urine WBC (Auto) Urine Chloride Urine Total Protein Vancomycin Trough Crossmatch 10/15/16 10/15/16 10/15/16 19:14 20:31 21:23 WBC RBC Hgb Hct MCV RDW Plt Count Lymph % (Auto) [place] % (Auto) [place] # Seg Neutrophils % Seg Neuts % (Manual) Lymphocytes % (Manual) Monocytes % (Manual) Basophils % (Manual) Nucleated RBC % Seg Neutrophils # Seg Neutrophils # Man Lymphocytes # (Manual) Monocytes # (Manual) Eosinophils # (Manual) Basophils # (Manual) PT INR APTT Heparin Anti-Xa Level POC ABG pH POC ABG pCO2 POC ABG pO2 Sodium Potassium Chloride Carbon Dioxide BUN Creatinine Glucose POC Glucose 138 H 158 H 158 H Calcium Phosphorus Magnesium AST Alkaline Phosphatase C-Reactive Protein Total Protein Albumin Lipase Vitamin B12 TSH Urine WBC (Auto) Urine Chloride Urine Total Protein Vancomycin Trough Crossmatch 10/15/16 10/15/16 10/16/16 22:04 22:57 00:11 WBC RBC Hgb Hct MCV RDW Plt Count Lymph % (Auto) [place] % (Auto) [place] # Seg Neutrophils % Seg Neuts % (Manual) Lymphocytes % (Manual) Monocytes % (Manual) Basophils % (Manual) Nucleated RBC % Seg Neutrophils # Seg Neutrophils # Man Lymphocytes # (Manual) Monocytes # (Manual) Eosinophils # (Manual) Basophils # (Manual) PT INR APTT Heparin Anti-Xa Level POC ABG pH POC ABG pCO2 POC ABG pO2 Sodium Potassium Chloride Carbon Dioxide BUN Creatinine Glucose POC Glucose 168 H 213 H 166 H Calcium Phosphorus Magnesium AST Alkaline Phosphatase C-Reactive Protein Total Protein Albumin Lipase Vitamin B12 TSH Urine WBC (Auto) Urine Chloride Urine Total Protein Vancomycin Trough Crossmatch 10/16/16 10/16/16 10/16/16 01:16 02:32 03:38 WBC RBC Hgb Hct MCV RDW Plt Count Lymph % (Auto) [place] % (Auto) [place] # Seg Neutrophils % Seg Neuts % (Manual) Lymphocytes % (Manual) Monocytes % (Manual) Basophils % (Manual) Nucleated RBC % Seg Neutrophils # Seg Neutrophils # Man Lymphocytes # (Manual) Monocytes # (Manual) Eosinophils # (Manual) Basophils # (Manual) PT INR APTT Heparin Anti-Xa Level POC ABG pH POC ABG pCO2 POC ABG pO2 Sodium Potassium Chloride Carbon Dioxide BUN Creatinine Glucose POC Glucose 171 H 164 H 147 H Calcium Phosphorus Magnesium AST Alkaline Phosphatase C-Reactive Protein Total Protein Albumin Lipase Vitamin B12 TSH Urine WBC (Auto) Urine Chloride Urine Total Protein Vancomycin Trough Crossmatch 10/16/16 10/16/16 10/16/16 04:14 04:14 04:49 WBC RBC Hgb Hct MCV RDW Plt Count Lymph % (Auto) [place] % (Auto) [place] # Seg Neutrophils % Seg Neuts % (Manual) Lymphocytes % (Manual) Monocytes % (Manual) Basophils % (Manual) Nucleated RBC % Seg Neutrophils # Seg Neutrophils # Man Lymphocytes # (Manual) Monocytes # (Manual) Eosinophils # (Manual) Basophils # (Manual) PT INR APTT Heparin Anti-Xa Level POC ABG pH POC ABG pCO2 POC ABG pO2 Sodium 147 H Potassium Chloride 110.9 H Carbon Dioxide 19 L BUN Creatinine Glucose 139 H POC Glucose 144 H Calcium 7.3 L Phosphorus 2.3 L Magnesium AST Alkaline Phosphatase C-Reactive Protein Total Protein Albumin Lipase 143 H Vitamin B12 TSH Urine WBC (Auto) Urine Chloride Urine Total Protein Vancomycin Trough Crossmatch 10/16/16 10/16/16 10/16/16 05:03 05:41 05:58 WBC 16.5 H RBC 3.36 L Hgb Hct MCV 98 H RDW 13.1 L Plt Count Lymph % (Auto) 8.5 L [place] % (Auto) 7.6 H [place] # 1.3 H Seg Neutrophils % 83.3 H Seg Neuts % (Manual) Lymphocytes % (Manual) Monocytes % (Manual) Basophils % (Manual) Nucleated RBC % Seg Neutrophils # 13.8 H Seg Neutrophils # Man Lymphocytes # (Manual) Monocytes # (Manual) Eosinophils # (Manual) Basophils # (Manual) PT INR APTT Heparin Anti-Xa Level POC ABG pH POC ABG pCO2 30.7 L POC ABG pO2 128 H Sodium Potassium Chloride Carbon Dioxide BUN Creatinine Glucose POC Glucose 131 H Calcium Phosphorus Magnesium AST Alkaline Phosphatase C-Reactive Protein Total Protein Albumin Lipase Vitamin B12 TSH Urine WBC (Auto) Urine Chloride Urine Total Protein Vancomycin Trough Crossmatch 10/16/16 10/16/16 10/16/16 06:32 09:27 09:35 WBC RBC Hgb Hct MCV RDW Plt Count Lymph % (Auto) [place] % (Auto) [place] # Seg Neutrophils % Seg Neuts % (Manual) Lymphocytes % (Manual) Monocytes % (Manual) Basophils % (Manual) Nucleated RBC % Seg Neutrophils # Seg Neutrophils # Man Lymphocytes # (Manual) Monocytes # (Manual) Eosinophils # (Manual) Basophils # (Manual) PT INR APTT Heparin Anti-Xa Level POC ABG pH POC ABG pCO2 32.8 L POC ABG pO2 137 H Sodium Potassium Chloride Carbon Dioxide BUN Creatinine Glucose POC Glucose 121 H 150 H Calcium Phosphorus Magnesium AST Alkaline Phosphatase C-Reactive Protein Total Protein Albumin Lipase Vitamin B12 TSH Urine WBC (Auto) Urine Chloride Urine Total Protein Vancomycin Trough Crossmatch 10/16/16 10/16/16 10/16/16 10:47 13:27 14:24 WBC RBC Hgb Hct MCV RDW Plt Count Lymph % (Auto) [place] % (Auto) [place] # Seg Neutrophils % Seg Neuts % (Manual) Lymphocytes % (Manual) Monocytes % (Manual) Basophils % (Manual) Nucleated RBC % Seg Neutrophils # Seg Neutrophils # Man Lymphocytes # (Manual) Monocytes # (Manual) Eosinophils # (Manual) Basophils # (Manual) PT INR APTT Heparin Anti-Xa Level POC ABG pH POC ABG pCO2 POC ABG pO2 Sodium Potassium Chloride Carbon Dioxide BUN Creatinine Glucose POC Glucose 184 H 171 H 174 H Calcium Phosphorus Magnesium AST Alkaline Phosphatase C-Reactive Protein Total Protein Albumin Lipase Vitamin B12 TSH Urine WBC (Auto) Urine Chloride Urine Total Protein Vancomycin Trough Crossmatch 10/16/16 10/16/16 10/16/16 15:48 16:26 18:17 WBC RBC Hgb Hct MCV RDW Plt Count Lymph % (Auto) [place] % (Auto) [place] # Seg Neutrophils % Seg Neuts % (Manual) Lymphocytes % (Manual) Monocytes % (Manual) Basophils % (Manual) Nucleated RBC % Seg Neutrophils # Seg Neutrophils # Man Lymphocytes # (Manual) Monocytes # (Manual) Eosinophils # (Manual) Basophils # (Manual) PT INR APTT Heparin Anti-Xa Level POC ABG pH POC ABG pCO2 POC ABG pO2 Sodium Potassium Chloride Carbon Dioxide BUN Creatinine Glucose POC Glucose 205 H 204 H 234 H Calcium Phosphorus Magnesium AST Alkaline Phosphatase C-Reactive Protein Total Protein Albumin Lipase Vitamin B12 TSH Urine WBC (Auto) Urine Chloride Urine Total Protein Vancomycin Trough Crossmatch 10/16/16 10/16/16 10/16/16 19:40 20:33 21:36 WBC RBC Hgb Hct MCV RDW Plt Count Lymph % (Auto) [place] % (Auto) [place] # Seg Neutrophils % Seg Neuts % (Manual) Lymphocytes % (Manual) Monocytes % (Manual) Basophils % (Manual) Nucleated RBC % Seg Neutrophils # Seg Neutrophils # Man Lymphocytes # (Manual) Monocytes # (Manual) Eosinophils # (Manual) Basophils # (Manual) PT INR APTT Heparin Anti-Xa Level POC ABG pH POC ABG pCO2 POC ABG pO2 Sodium Potassium Chloride Carbon Dioxide BUN Creatinine Glucose POC Glucose 167 H 153 H 158 H Calcium Phosphorus Magnesium AST Alkaline Phosphatase C-Reactive Protein Total Protein Albumin Lipase Vitamin B12 TSH Urine WBC (Auto) Urine Chloride Urine Total Protein Vancomycin Trough Crossmatch 10/16/16 10/16/16 10/17/16 22:54 23:48 00:47 WBC RBC Hgb Hct MCV RDW Plt Count Lymph % (Auto) [place] % (Auto) [place] # Seg Neutrophils % Seg Neuts % (Manual) Lymphocytes % (Manual) Monocytes % (Manual) Basophils % (Manual) Nucleated RBC % Seg Neutrophils # Seg Neutrophils # Man Lymphocytes # (Manual) Monocytes # (Manual) Eosinophils # (Manual) Basophils # (Manual) PT INR APTT Heparin Anti-Xa Level POC ABG pH POC ABG pCO2 POC ABG pO2 Sodium Potassium Chloride Carbon Dioxide BUN Creatinine Glucose POC Glucose 180 H 207 H 196 H Calcium Phosphorus Magnesium AST Alkaline Phosphatase C-Reactive Protein Total Protein Albumin Lipase Vitamin B12 TSH Urine WBC (Auto) Urine Chloride Urine Total Protein Vancomycin Trough Crossmatch 10/17/16 10/17/16 10/17/16 01:57 02:49 03:50 WBC RBC Hgb Hct MCV RDW Plt Count Lymph % (Auto) [place] % (Auto) [place] # Seg Neutrophils % Seg Neuts % (Manual) Lymphocytes % (Manual) Monocytes % (Manual) Basophils % (Manual) Nucleated RBC % Seg Neutrophils # Seg Neutrophils # Man Lymphocytes # (Manual) Monocytes # (Manual) Eosinophils # (Manual) Basophils # (Manual) PT INR APTT Heparin Anti-Xa Level POC ABG pH POC ABG pCO2 POC ABG pO2 Sodium Potassium Chloride Carbon Dioxide BUN Creatinine Glucose POC Glucose 180 H 151 H 106 H Calcium Phosphorus Magnesium AST Alkaline Phosphatase C-Reactive Protein Total Protein Albumin Lipase Vitamin B12 TSH Urine WBC (Auto) Urine Chloride Urine Total Protein Vancomycin Trough Crossmatch 10/17/16 10/17/16 10/17/16 04:59 06:03 06:35 WBC RBC Hgb Hct MCV RDW Plt Count Lymph % (Auto) [place] % (Auto) [place] # Seg Neutrophils % Seg Neuts % (Manual) Lymphocytes % (Manual) Monocytes % (Manual) Basophils % (Manual) Nucleated RBC % Seg Neutrophils # Seg Neutrophils # Man Lymphocytes # (Manual) Monocytes # (Manual) Eosinophils # (Manual) Basophils # (Manual) PT INR APTT Heparin Anti-Xa Level POC ABG pH 7.453 H POC ABG pCO2 30.1 L POC ABG pO2 111 H Sodium Potassium Chloride Carbon Dioxide BUN Creatinine Glucose POC Glucose 145 H 157 H Calcium Phosphorus Magnesium AST Alkaline Phosphatase C-Reactive Protein Total Protein Albumin Lipase Vitamin B12 TSH Urine WBC (Auto) Urine Chloride Urine Total Protein Vancomycin Trough Crossmatch 10/17/16 10/17/16 10/17/16 07:08 07:11 08:01 WBC RBC Hgb Hct MCV RDW Plt Count Lymph % (Auto) [place] % (Auto) [place] # Seg Neutrophils % Seg Neuts % (Manual) Lymphocytes % (Manual) Monocytes % (Manual) Basophils % (Manual) Nucleated RBC % Seg Neutrophils # Seg Neutrophils # Man Lymphocytes # (Manual) Monocytes # (Manual) Eosinophils # (Manual) Basophils # (Manual) PT INR APTT Heparin Anti-Xa Level POC ABG pH POC ABG pCO2 POC ABG pO2 Sodium 147 H Potassium Chloride 113.8 H Carbon Dioxide 19 L BUN Creatinine Glucose 136 H POC Glucose 136 H 152 H Calcium 7.7 L Phosphorus Magnesium AST Alkaline Phosphatase C-Reactive Protein Total Protein Albumin Lipase Vitamin B12 TSH Urine WBC (Auto) Urine Chloride Urine Total Protein Vancomycin Trough Crossmatch 10/17/16 10/17/16 10/17/16 08:23 09:17 09:53 WBC 18.1 H RBC 3.01 L Hgb 9.7 L Hct 29.4 L MCV 98 H RDW Plt Count 116 L Lymph % (Auto) [place] % (Auto) [place] # Seg Neutrophils % Seg Neuts % (Manual) 77.0 H Lymphocytes % (Manual) 4.0 L Monocytes % (Manual) 12.0 H Basophils % (Manual) Nucleated RBC % Seg Neutrophils # Seg Neutrophils # Man 13.9 H Lymphocytes # (Manual) 0.7 L Monocytes # (Manual) 2.2 H Eosinophils # (Manual) Basophils # (Manual) PT INR APTT Heparin Anti-Xa Level POC ABG pH POC ABG pCO2 POC ABG pO2 Sodium Potassium Chloride Carbon Dioxide BUN Creatinine Glucose POC Glucose 148 H 137 H Calcium Phosphorus Magnesium AST Alkaline Phosphatase C-Reactive Protein Total Protein Albumin Lipase Vitamin B12 TSH Urine WBC (Auto) Urine Chloride Urine Total Protein Vancomycin Trough Crossmatch 10/17/16 10/17/16 10/17/16 11:43 16:07 17:42 WBC RBC Hgb Hct MCV RDW Plt Count Lymph % (Auto) [place] % (Auto) [place] # Seg Neutrophils % Seg Neuts % (Manual) Lymphocytes % (Manual) Monocytes % (Manual) Basophils % (Manual) Nucleated RBC % Seg Neutrophils # Seg Neutrophils # Man Lymphocytes # (Manual) Monocytes # (Manual) Eosinophils # (Manual) Basophils # (Manual) PT 16.4 H INR 1.33 H APTT 38.8 H Heparin Anti-Xa Level POC ABG pH POC ABG pCO2 POC ABG pO2 Sodium Potassium Chloride Carbon Dioxide BUN Creatinine Glucose POC Glucose 179 H 153 H Calcium Phosphorus Magnesium AST Alkaline Phosphatase C-Reactive Protein Total Protein Albumin Lipase Vitamin B12 TSH Urine WBC (Auto) Urine Chloride Urine Total Protein Vancomycin Trough Crossmatch 10/17/16 10/18/16 10/18/16 22:54 04:37 05:39 WBC RBC Hgb Hct MCV RDW Plt Count Lymph % (Auto) [place] % (Auto) [place] # Seg Neutrophils % Seg Neuts % (Manual) Lymphocytes % (Manual) Monocytes % (Manual) Basophils % (Manual) Nucleated RBC % Seg Neutrophils # Seg Neutrophils # Man Lymphocytes # (Manual) Monocytes # (Manual) Eosinophils # (Manual) Basophils # (Manual) PT INR APTT Heparin Anti-Xa Level 0.27 L POC ABG pH 7.454 H POC ABG pCO2 30.8 L POC ABG pO2 115 H Sodium Potassium Chloride Carbon Dioxide BUN Creatinine Glucose POC Glucose 69 L Calcium Phosphorus Magnesium AST Alkaline Phosphatase C-Reactive Protein Total Protein Albumin Lipase Vitamin B12 TSH Urine WBC (Auto) Urine Chloride Urine Total Protein Vancomycin Trough Crossmatch 10/18/16 10/18/16 10/18/16 06:46 06:46 06:46 WBC 20.5 H RBC 2.62 L Hgb 8.4 L Hct 26.0 L MCV 100 H RDW Plt Count Lymph % (Auto) [place] % (Auto) [place] # Seg Neutrophils % Seg Neuts % (Manual) 75.0 H Lymphocytes % (Manual) 9.0 L Monocytes % (Manual) 14.0 H Basophils % (Manual) Nucleated RBC % Seg Neutrophils # Seg Neutrophils # Man 15.4 H Lymphocytes # (Manual) Monocytes # (Manual) 2.9 H Eosinophils # (Manual) Basophils # (Manual) PT INR APTT Heparin Anti-Xa Level POC ABG pH POC ABG pCO2 POC ABG pO2 Sodium Potassium Chloride 110.6 H Carbon Dioxide BUN Creatinine 1.3 H Glucose 153 H POC Glucose Calcium 8.0 L Phosphorus Magnesium 1.6 L AST Alkaline Phosphatase C-Reactive Protein Total Protein Albumin Lipase Vitamin B12 TSH Urine WBC (Auto) Urine Chloride Urine Total Protein Vancomycin Trough Crossmatch 10/18/16 10/18/16 10/18/16 07:30 11:37 17:51 WBC RBC Hgb Hct MCV RDW Plt Count Lymph % (Auto) [place] % (Auto) [place] # Seg Neutrophils % Seg Neuts % (Manual) Lymphocytes % (Manual) Monocytes % (Manual) Basophils % (Manual) Nucleated RBC % Seg Neutrophils # Seg Neutrophils # Man Lymphocytes # (Manual) Monocytes # (Manual) Eosinophils # (Manual) Basophils # (Manual) PT INR APTT Heparin Anti-Xa Level POC ABG pH POC ABG pCO2 POC ABG pO2 Sodium Potassium Chloride Carbon Dioxide BUN Creatinine Glucose POC Glucose 162 H 156 H 164 H Calcium Phosphorus Magnesium AST Alkaline Phosphatase C-Reactive Protein Total Protein Albumin Lipase Vitamin B12 TSH Urine WBC (Auto) Urine Chloride Urine Total Protein Vancomycin Trough Crossmatch 10/18/16 10/19/16 10/19/16 23:44 03:59 05:13 WBC 18.2 H RBC 2.76 L Hgb 9.0 L Hct 27.7 L MCV 100 H RDW Plt Count Lymph % (Auto) [place] % (Auto) [place] # Seg Neutrophils % Seg Neuts % (Manual) 76.0 H Lymphocytes % (Manual) 10.0 L Monocytes % (Manual) Basophils % (Manual) Nucleated RBC % Seg Neutrophils # Seg Neutrophils # Man 13.8 H Lymphocytes # (Manual) Monocytes # (Manual) Eosinophils # (Manual) Basophils # (Manual) PT INR APTT Heparin Anti-Xa Level POC ABG pH POC ABG pCO2 32.2 L POC ABG pO2 128 H Sodium Potassium Chloride Carbon Dioxide BUN Creatinine Glucose POC Glucose 278 H Calcium Phosphorus Magnesium AST Alkaline Phosphatase C-Reactive Protein Total Protein Albumin Lipase Vitamin B12 TSH Urine WBC (Auto) Urine Chloride Urine Total Protein Vancomycin Trough Crossmatch 10/19/16 10/19/16 10/19/16 06:01 06:30 12:20 WBC RBC Hgb Hct MCV RDW Plt Count Lymph % (Auto) [place] % (Auto) [place] # Seg Neutrophils % Seg Neuts % (Manual) Lymphocytes % (Manual) Monocytes % (Manual) Basophils % (Manual) Nucleated RBC % Seg Neutrophils # Seg Neutrophils # Man Lymphocytes # (Manual) Monocytes # (Manual) Eosinophils # (Manual) Basophils # (Manual) PT INR APTT Heparin Anti-Xa Level POC ABG pH POC ABG pCO2 POC ABG pO2 Sodium Potassium Chloride Carbon Dioxide 18 L BUN Creatinine 1.3 H Glucose 262 H POC Glucose 261 H 349 H Calcium 7.7 L Phosphorus 4.8 H D Magnesium AST Alkaline Phosphatase C-Reactive Protein Total Protein Albumin Lipase Vitamin B12 TSH Urine WBC (Auto) Urine Chloride Urine Total Protein Vancomycin Trough Crossmatch 10/19/16 10/20/16 10/20/16 16:48 00:17 05:20 WBC 22.5 H RBC 2.80 L Hgb 8.9 L Hct 28.3 L MCV 101 H RDW Plt Count Lymph % (Auto) [place] % (Auto) [place] # Seg Neutrophils % Seg Neuts % (Manual) Lymphocytes % (Manual) 10.0 L Monocytes % (Manual) Basophils % (Manual) Nucleated RBC % Seg Neutrophils # Seg Neutrophils # Man 13.3 H Lymphocytes # (Manual) Monocytes # (Manual) 1.1 H Eosinophils # (Manual) 0.7 H Basophils # (Manual) PT INR APTT Heparin Anti-Xa Level POC ABG pH POC ABG pCO2 POC ABG pO2 Sodium Potassium Chloride Carbon Dioxide BUN Creatinine Glucose POC Glucose 248 H 346 H Calcium Phosphorus Magnesium AST Alkaline Phosphatase C-Reactive Protein Total Protein Albumin Lipase Vitamin B12 TSH Urine WBC (Auto) Urine Chloride Urine Total Protein Vancomycin Trough Crossmatch 10/20/16 10/20/16 10/20/16 05:20 05:20 06:05 WBC RBC Hgb Hct MCV RDW Plt Count Lymph % (Auto) [place] % (Auto) [place] # Seg Neutrophils % Seg Neuts % (Manual) Lymphocytes % (Manual) Monocytes % (Manual) Basophils % (Manual) Nucleated RBC % Seg Neutrophils # Seg Neutrophils # Man Lymphocytes # (Manual) Monocytes # (Manual) Eosinophils # (Manual) Basophils # (Manual) PT INR APTT Heparin Anti-Xa Level 0.20 L POC ABG pH POC ABG pCO2 POC ABG pO2 Sodium Potassium Chloride Carbon Dioxide BUN 20 H Creatinine Glucose 374 H POC Glucose 337 H Calcium 8.3 L Phosphorus Magnesium AST Alkaline Phosphatase C-Reactive Protein Total Protein Albumin Lipase Vitamin B12 TSH Urine WBC (Auto) Urine Chloride Urine Total Protein Vancomycin Trough Crossmatch 10/20/16 10/20/16 10/20/16 11:49 13:59 17:56 WBC RBC Hgb Hct MCV RDW Plt Count Lymph % (Auto) [place] % (Auto) [place] # Seg Neutrophils % Seg Neuts % (Manual) Lymphocytes % (Manual) Monocytes % (Manual) Basophils % (Manual) Nucleated RBC % Seg Neutrophils # Seg Neutrophils # Man Lymphocytes # (Manual) Monocytes # (Manual) Eosinophils # (Manual) Basophils # (Manual) PT INR APTT Heparin Anti-Xa Level 2.00 H POC ABG pH POC ABG pCO2 POC ABG pO2 Sodium Potassium Chloride Carbon Dioxide BUN Creatinine Glucose POC Glucose 305 H 362 H Calcium Phosphorus Magnesium AST Alkaline Phosphatase C-Reactive Protein Total Protein Albumin Lipase Vitamin B12 TSH Urine WBC (Auto) Urine Chloride Urine Total Protein Vancomycin Trough Crossmatch 10/20/16 10/21/16 10/21/16 23:52 05:00 05:49 WBC 22.9 H RBC 2.49 L Hgb 7.7 L Hct 25.6 L MCV 103 H RDW Plt Count Lymph % (Auto) [place] % (Auto) [place] # Seg Neutrophils % Seg Neuts % (Manual) 94.0 H Lymphocytes % (Manual) 1.0 L Monocytes % (Manual) Basophils % (Manual) Nucleated RBC % Seg Neutrophils # Seg Neutrophils # Man 21.5 H Lymphocytes # (Manual) 0.2 L Monocytes # (Manual) 1.1 H Eosinophils # (Manual) Basophils # (Manual) PT INR APTT Heparin Anti-Xa Level POC ABG pH POC ABG pCO2 POC ABG pO2 Sodium Potassium Chloride Carbon Dioxide BUN Creatinine Glucose POC Glucose 252 H 180 H Calcium Phosphorus Magnesium AST Alkaline Phosphatase C-Reactive Protein Total Protein Albumin Lipase Vitamin B12 TSH Urine WBC (Auto) Urine Chloride Urine Total Protein Vancomycin Trough Crossmatch 10/21/16 10/21/16 10/21/16 11:47 11:49 14:10 WBC RBC Hgb Hct MCV RDW Plt Count Lymph % (Auto) [place] % (Auto) [place] # Seg Neutrophils % Seg Neuts % (Manual) Lymphocytes % (Manual) Monocytes % (Manual) Basophils % (Manual) Nucleated RBC % Seg Neutrophils # Seg Neutrophils # Man Lymphocytes # (Manual) Monocytes # (Manual) Eosinophils # (Manual) Basophils # (Manual) PT INR APTT Heparin Anti-Xa Level POC ABG pH POC ABG pCO2 POC ABG pO2 Sodium Potassium Chloride Carbon Dioxide BUN Creatinine Glucose POC Glucose 50 L 56 L 140 H Calcium Phosphorus Magnesium AST Alkaline Phosphatase C-Reactive Protein Total Protein Albumin Lipase Vitamin B12 TSH Urine WBC (Auto) Urine Chloride Urine Total Protein Vancomycin Trough Crossmatch 10/21/16 10/21/16 10/22/16 18:24 Unknown 00:07 WBC RBC Hgb Hct MCV RDW Plt Count Lymph % (Auto) [place] % (Auto) [place] # Seg Neutrophils % Seg Neuts % (Manual) Lymphocytes % (Manual) Monocytes % (Manual) Basophils % (Manual) Nucleated RBC % Seg Neutrophils # Seg Neutrophils # Man Lymphocytes # (Manual) Monocytes # (Manual) Eosinophils # (Manual) Basophils # (Manual) PT INR APTT Heparin Anti-Xa Level POC ABG pH POC ABG pCO2 POC ABG pO2 Sodium 150 H Potassium 3.1 L Chloride 112.4 H Carbon Dioxide BUN 25 H Creatinine 1.4 H Glucose POC Glucose 175 H 218 H Calcium 8.0 L Phosphorus Magnesium AST Alkaline Phosphatase C-Reactive Protein Total Protein Albumin Lipase Vitamin B12 TSH Urine WBC (Auto) Urine Chloride Urine Total Protein Vancomycin Trough Crossmatch 10/22/16 10/22/16 10/22/16 04:20 04:20 10:25 WBC 20.8 H RBC 2.37 L Hgb 7.5 L Hct 23.9 L MCV 101 H RDW Plt Count Lymph % (Auto) [place] % (Auto) [place] # Seg Neutrophils % Seg Neuts % (Manual) 89.0 H Lymphocytes % (Manual) 7.0 L Monocytes % (Manual) Basophils % (Manual) Nucleated RBC % Seg Neutrophils # Seg Neutrophils # Man 18.5 H Lymphocytes # (Manual) Monocytes # (Manual) Eosinophils # (Manual) Basophils # (Manual) 0.2 H PT INR APTT Heparin Anti-Xa Level POC ABG pH POC ABG pCO2 POC ABG pO2 Sodium 148 H Potassium 2.9 L* Chloride 109.4 H Carbon Dioxide BUN 26 H Creatinine Glucose 140 H POC Glucose Calcium 7.5 L Phosphorus Magnesium AST Alkaline Phosphatase C-Reactive Protein Total Protein Albumin Lipase Vitamin B12 976.8 H TSH Urine WBC (Auto) Urine Chloride Urine Total Protein Vancomycin Trough Crossmatch 10/22/16 10/22/1617 10:25 14:50 18:16 WBC RBC Hgb Hct MCV RDW Plt Count Lymph % (Auto) [place] % (Auto) [place] # Seg Neutrophils % Seg Neuts % (Manual) Lymphocytes % (Manual) Monocytes % (Manual) Basophils % (Manual) Nucleated RBC % Seg Neutrophils # Seg Neutrophils # Man Lymphocytes # (Manual) Monocytes # (Manual) Eosinophils # (Manual) Basophils # (Manual) PT INR APTT Heparin Anti-Xa Level POC ABG pH POC ABG pCO2 POC ABG pO2 Sodium Potassium Chloride Carbon Dioxide BUN Creatinine Glucose POC Glucose 193 H Calcium Phosphorus Magnesium AST Alkaline Phosphatase C-Reactive Protein Total Protein Albumin Lipase Vitamin B12 TSH 0.143 L 0.162 L Urine WBC (Auto) Urine Chloride Urine Total Protein Vancomycin Trough Crossmatch 10/22/16 10/22/16 10/22/16 20:00 20:00 20:00 WBC 24.1 H RBC 2.58 L Hgb 8.2 L Hct 26.4 L MCV 102 H RDW Plt Count Lymph % (Auto) [place] % (Auto) [place] # Seg Neutrophils % Seg Neuts % (Manual) 74.0 H Lymphocytes % (Manual) 7.0 L Monocytes % (Manual) Basophils % (Manual) Nucleated RBC % Seg Neutrophils # Seg Neutrophils # Man 17.8 H Lymphocytes # (Manual) Monocytes # (Manual) Eosinophils # (Manual) Basophils # (Manual) PT INR APTT Heparin Anti-Xa Level 1.92 H POC ABG pH POC ABG pCO2 POC ABG pO2 Sodium Potassium Chloride Carbon Dioxide BUN Creatinine Glucose POC Glucose Calcium Phosphorus Magnesium AST Alkaline Phosphatase C-Reactive Protein Total Protein Albumin Lipase Vitamin B12 TSH Urine WBC (Auto) Urine Chloride Urine Total Protein Vancomycin Trough Crossmatch See Detail 10/23/16 10/23/16 10/23/16 00:21 06:09 12:07 WBC RBC Hgb Hct MCV RDW Plt Count Lymph % (Auto) [place] % (Auto) [place] # Seg Neutrophils % Seg Neuts % (Manual) Lymphocytes % (Manual) Monocytes % (Manual) Basophils % (Manual) Nucleated RBC % Seg Neutrophils # Seg Neutrophils # Man Lymphocytes # (Manual) Monocytes # (Manual) Eosinophils # (Manual) Basophils # (Manual) PT INR APTT Heparin Anti-Xa Level POC ABG pH POC ABG pCO2 POC ABG pO2 Sodium Potassium Chloride Carbon Dioxide BUN Creatinine Glucose POC Glucose 283 H 241 H 340 H Calcium Phosphorus Magnesium AST Alkaline Phosphatase C-Reactive Protein Total Protein Albumin Lipase Vitamin B12 TSH Urine WBC (Auto) Urine Chloride Urine Total Protein Vancomycin Trough Crossmatch 10/23/16 10/23/16 10/23/16 14:01 16:00 17:59 WBC RBC Hgb Hct MCV RDW Plt Count Lymph % (Auto) [place] % (Auto) [place] # Seg Neutrophils % Seg Neuts % (Manual) Lymphocytes % (Manual) Monocytes % (Manual) Basophils % (Manual) Nucleated RBC % Seg Neutrophils # Seg Neutrophils # Man Lymphocytes # (Manual) Monocytes # (Manual) Eosinophils # (Manual) Basophils # (Manual) PT INR APTT Heparin Anti-Xa Level 0.19 L POC ABG pH POC ABG pCO2 32.4 L POC ABG pO2 Sodium Potassium Chloride Carbon Dioxide BUN Creatinine Glucose POC Glucose 245 H Calcium Phosphorus Magnesium AST Alkaline Phosphatase C-Reactive Protein Total Protein Albumin Lipase Vitamin B12 TSH Urine WBC (Auto) Urine Chloride Urine Total Protein Vancomycin Trough Crossmatch 10/23/16 10/23/16 10/23/16 22:55 Unknown Unknown WBC 22.6 H RBC 3.26 L Hgb Hct MCV RDW 17.1 H Plt Count Lymph % (Auto) [place] % (Auto) [place] # Seg Neutrophils % Seg Neuts % (Manual) Lymphocytes % (Manual) 11.0 L Monocytes % (Manual) Basophils % (Manual) Nucleated RBC % Seg Neutrophils # Seg Neutrophils # Man 14.0 H Lymphocytes # (Manual) Monocytes # (Manual) Eosinophils # (Manual) Basophils # (Manual) PT INR APTT Heparin Anti-Xa Level 0.17 L 0.15 L POC ABG pH POC ABG pCO2 POC ABG pO2 Sodium Potassium Chloride Carbon Dioxide BUN Creatinine Glucose POC Glucose Calcium Phosphorus Magnesium AST Alkaline Phosphatase C-Reactive Protein Total Protein Albumin Lipase Vitamin B12 TSH Urine WBC (Auto) Urine Chloride Urine Total Protein Vancomycin Trough Crossmatch 10/23/16 10/24/16 10/24/16 Unknown 00:05 05:30 WBC RBC Hgb Hct MCV RDW Plt Count Lymph % (Auto) [place] % (Auto) [place] # Seg Neutrophils % Seg Neuts % (Manual) Lymphocytes % (Manual) Monocytes % (Manual) Basophils % (Manual) Nucleated RBC % Seg Neutrophils # Seg Neutrophils # Man Lymphocytes # (Manual) Monocytes # (Manual) Eosinophils # (Manual) Basophils # (Manual) PT INR APTT Heparin Anti-Xa Level 0.13 L POC ABG pH POC ABG pCO2 POC ABG pO2 Sodium Potassium Chloride 111.2 H Carbon Dioxide 20 L BUN 25 H Creatinine Glucose 227 H POC Glucose 118 H Calcium 7.1 L Phosphorus Magnesium AST Alkaline Phosphatase C-Reactive Protein Total Protein Albumin Lipase Vitamin B12 TSH Urine WBC (Auto) Urine Chloride Urine Total Protein Vancomycin Trough Crossmatch 10/24/16 10/24/16 10/24/16 11:00 11:00 12:06 WBC 17.6 H RBC 2.92 L Hgb 9.2 L Hct 28.3 L MCV RDW 16.9 H Plt Count Lymph % (Auto) [place] % (Auto) [place] # Seg Neutrophils % Seg Neuts % (Manual) Lymphocytes % (Manual) Monocytes % (Manual) Basophils % (Manual) Nucleated RBC % Seg Neutrophils # Seg Neutrophils # Man Lymphocytes # (Manual) Monocytes # (Manual) Eosinophils # (Manual) Basophils # (Manual) PT INR APTT Heparin Anti-Xa Level 0.27 L POC ABG pH POC ABG pCO2 POC ABG pO2 Sodium Potassium Chloride Carbon Dioxide BUN Creatinine Glucose POC Glucose 166 H Calcium Phosphorus Magnesium AST Alkaline Phosphatase C-Reactive Protein Total Protein Albumin Lipase Vitamin B12 TSH Urine WBC (Auto) Urine Chloride Urine Total Protein Vancomycin Trough Crossmatch 10/24/16 10/25/16 10/25/16 12:27 00:49 03:30 WBC RBC Hgb 8.8 L Hct 28.1 L MCV RDW Plt Count Lymph % (Auto) [place] % (Auto) [place] # Seg Neutrophils % Seg Neuts % (Manual) Lymphocytes % (Manual) Monocytes % (Manual) Basophils % (Manual) Nucleated RBC % Seg Neutrophils # Seg Neutrophils # Man Lymphocytes # (Manual) Monocytes # (Manual) Eosinophils # (Manual) Basophils # (Manual) PT INR APTT Heparin Anti-Xa Level POC ABG pH POC ABG pCO2 33.9 L POC ABG pO2 Sodium Potassium Chloride Carbon Dioxide BUN Creatinine Glucose POC Glucose 121 H Calcium Phosphorus Magnesium AST Alkaline Phosphatase C-Reactive Protein Total Protein Albumin Lipase Vitamin B12 TSH Urine WBC (Auto) Urine Chloride Urine Total Protein Vancomycin Trough Crossmatch 10/25/16 10/25/16 10/25/16 09:49 12:10 19:25 WBC 21.1 H RBC 3.02 L Hgb 9.3 L Hct 28.9 L MCV RDW 16.3 H Plt Count Lymph % (Auto) [place] % (Auto) [place] # Seg Neutrophils % Seg Neuts % (Manual) 81.0 H Lymphocytes % (Manual) 9.0 L Monocytes % (Manual) Basophils % (Manual) Nucleated RBC % Seg Neutrophils # Seg Neutrophils # Man 17.1 H Lymphocytes # (Manual) Monocytes # (Manual) Eosinophils # (Manual) Basophils # (Manual) PT INR APTT Heparin Anti-Xa Level POC ABG pH POC ABG pCO2 POC ABG pO2 Sodium Potassium Chloride Carbon Dioxide BUN Creatinine Glucose POC Glucose 158 H 151 H Calcium Phosphorus Magnesium AST Alkaline Phosphatase C-Reactive Protein Total Protein Albumin Lipase Vitamin B12 TSH Urine WBC (Auto) Urine Chloride Urine Total Protein Vancomycin Trough Crossmatch 10/26/16 10/26/16 10/26/16 00:20 01:09 05:02 WBC 22.2 H RBC 2.89 L Hgb 8.7 L Hct 27.8 L MCV RDW 16.4 H Plt Count Lymph % (Auto) [place] % (Auto) [place] # Seg Neutrophils % Seg Neuts % (Manual) Lymphocytes % (Manual) Monocytes % (Manual) Basophils % (Manual) Nucleated RBC % Seg Neutrophils # Seg Neutrophils # Man Lymphocytes # (Manual) Monocytes # (Manual) Eosinophils # (Manual) Basophils # (Manual) PT INR APTT Heparin Anti-Xa Level POC ABG pH POC ABG pCO2 POC ABG pO2 Sodium Potassium Chloride Carbon Dioxide BUN Creatinine Glucose POC Glucose 44 L 112 H Calcium Phosphorus Magnesium AST Alkaline Phosphatase C-Reactive Protein Total Protein Albumin Lipase Vitamin B12 TSH Urine WBC (Auto) Urine Chloride Urine Total Protein Vancomycin Trough Crossmatch 10/26/16 10/26/16 10/26/16 05:02 12:11 12:14 WBC RBC Hgb Hct MCV RDW Plt Count Lymph % (Auto) [place] % (Auto) [place] # Seg Neutrophils % Seg Neuts % (Manual) Lymphocytes % (Manual) Monocytes % (Manual) Basophils % (Manual) Nucleated RBC % Seg Neutrophils # Seg Neutrophils # Man Lymphocytes # (Manual) Monocytes # (Manual) Eosinophils # (Manual) Basophils # (Manual) PT INR APTT Heparin Anti-Xa Level POC ABG pH POC ABG pCO2 32.0 L POC ABG pO2 33 L Sodium Potassium 3.2 L D Chloride Carbon Dioxide 20 L BUN 24 H Creatinine Glucose 104 H POC Glucose 194 H Calcium 7.7 L Phosphorus Magnesium AST Alkaline Phosphatase C-Reactive Protein Total Protein Albumin Lipase Vitamin B12 TSH Urine WBC (Auto) Urine Chloride Urine Total Protein Vancomycin Trough Crossmatch 10/26/16 10/26/16 10/27/16 15:28 17:23 00:04 WBC RBC Hgb Hct MCV RDW Plt Count Lymph % (Auto) [place] % (Auto) [place] # Seg Neutrophils % Seg Neuts % (Manual) Lymphocytes % (Manual) Monocytes % (Manual) Basophils % (Manual) Nucleated RBC % Seg Neutrophils # Seg Neutrophils # Man Lymphocytes # (Manual) Monocytes # (Manual) Eosinophils # (Manual) Basophils # (Manual) PT INR APTT Heparin Anti-Xa Level POC ABG pH POC ABG pCO2 33.7 L POC ABG pO2 Sodium Potassium Chloride Carbon Dioxide BUN Creatinine Glucose POC Glucose 181 H 230 H Calcium Phosphorus Magnesium AST Alkaline Phosphatase C-Reactive Protein Total Protein Albumin Lipase Vitamin B12 TSH Urine WBC (Auto) Urine Chloride Urine Total Protein Vancomycin Trough Crossmatch 10/27/16 10/27/16 10/27/16 05:15 05:15 05:38 WBC 25.5 H RBC 3.07 L Hgb 9.4 L Hct 30.1 L MCV 98 H RDW 16.4 H Plt Count 527 H Lymph % (Auto) [place] % (Auto) [place] # Seg Neutrophils % Seg Neuts % (Manual) Lymphocytes % (Manual) Monocytes % (Manual) Basophils % (Manual) Nucleated RBC % Seg Neutrophils # Seg Neutrophils # Man Lymphocytes # (Manual) Monocytes # (Manual) Eosinophils # (Manual) Basophils # (Manual) PT INR APTT Heparin Anti-Xa Level POC ABG pH POC ABG pCO2 POC ABG pO2 Sodium Potassium Chloride Carbon Dioxide 19 L BUN 23 H Creatinine Glucose 160 H POC Glucose 168 H Calcium 8.0 L Phosphorus Magnesium AST Alkaline Phosphatase C-Reactive Protein Total Protein Albumin Lipase Vitamin B12 TSH Urine WBC (Auto) Urine Chloride Urine Total Protein Vancomycin Trough Crossmatch 10/27/16 10/27/16 10/27/16 11:59 18:35 23:48 WBC RBC Hgb Hct MCV RDW Plt Count Lymph % (Auto) [place] % (Auto) [place] # Seg Neutrophils % Seg Neuts % (Manual) Lymphocytes % (Manual) Monocytes % (Manual) Basophils % (Manual) Nucleated RBC % Seg Neutrophils # Seg Neutrophils # Man Lymphocytes # (Manual) Monocytes # (Manual) Eosinophils # (Manual) Basophils # (Manual) PT INR APTT Heparin Anti-Xa Level POC ABG pH POC ABG pCO2 POC ABG pO2 Sodium Potassium Chloride Carbon Dioxide BUN Creatinine Glucose POC Glucose 197 H 318 H 316 H Calcium Phosphorus Magnesium AST Alkaline Phosphatase C-Reactive Protein Total Protein Albumin Lipase Vitamin B12 TSH Urine WBC (Auto) Urine Chloride Urine Total Protein Vancomycin Trough Crossmatch 10/28/16 10/28/16 10/28/16 03:13 04:10 04:10 WBC 18.8 H RBC 2.64 L Hgb 8.1 L Hct 26.1 L MCV 99 H RDW 16.2 H Plt Count 544 H Lymph % (Auto) [place] % (Auto) [place] # Seg Neutrophils % Seg Neuts % (Manual) Lymphocytes % (Manual) Monocytes % (Manual) Basophils % (Manual) Nucleated RBC % Seg Neutrophils # Seg Neutrophils # Man Lymphocytes # (Manual) Monocytes # (Manual) Eosinophils # (Manual) Basophils # (Manual) PT INR APTT Heparin Anti-Xa Level POC ABG pH POC ABG pCO2 POC ABG pO2 Sodium Potassium Chloride Carbon Dioxide 21 L BUN 24 H Creatinine Glucose 302 H POC Glucose 304 H Calcium 7.7 L Phosphorus Magnesium AST Alkaline Phosphatase C-Reactive Protein Total Protein Albumin Lipase Vitamin B12 TSH Urine WBC (Auto) Urine Chloride Urine Total Protein Vancomycin Trough Crossmatch 10/28/16 10/28/16 10/28/16 04:10 12:36 18:27 WBC RBC Hgb Hct MCV RDW Plt Count Lymph % (Auto) [place] % (Auto) [place] # Seg Neutrophils % Seg Neuts % (Manual) Lymphocytes % (Manual) Monocytes % (Manual) Basophils % (Manual) Nucleated RBC % Seg Neutrophils # Seg Neutrophils # Man Lymphocytes # (Manual) Monocytes # (Manual) Eosinophils # (Manual) Basophils # (Manual) PT INR APTT Heparin Anti-Xa Level 0.20 L POC ABG pH POC ABG pCO2 POC ABG pO2 Sodium Potassium Chloride Carbon Dioxide BUN Creatinine Glucose POC Glucose 205 H 339 H Calcium Phosphorus Magnesium AST Alkaline Phosphatase C-Reactive Protein Total Protein Albumin Lipase Vitamin B12 TSH Urine WBC (Auto) Urine Chloride Urine Total Protein Vancomycin Trough Crossmatch 10/29/16 10/29/16 10/29/16 01:05 06:19 09:30 WBC 20.3 H RBC 2.80 L Hgb 8.5 L Hct 26.7 L MCV RDW 15.4 H Plt Count 571 H Lymph % (Auto) [place] % (Auto) [place] # Seg Neutrophils % Seg Neuts % (Manual) 75.0 H Lymphocytes % (Manual) 4.0 L Monocytes % (Manual) Basophils % (Manual) Nucleated RBC % Seg Neutrophils # Seg Neutrophils # Man 15.2 H Lymphocytes # (Manual) 0.8 L Monocytes # (Manual) Eosinophils # (Manual) Basophils # (Manual) PT INR APTT Heparin Anti-Xa Level POC ABG pH POC ABG pCO2 POC ABG pO2 Sodium Potassium Chloride Carbon Dioxide BUN Creatinine Glucose POC Glucose 275 H 179 H Calcium Phosphorus Magnesium AST Alkaline Phosphatase C-Reactive Protein Total Protein Albumin Lipase Vitamin B12 TSH Urine WBC (Auto) Urine Chloride Urine Total Protein Vancomycin Trough Crossmatch 10/29/16 10/29/16 10/29/16 11:46 15:18 17:55 WBC RBC Hgb Hct MCV RDW Plt Count Lymph % (Auto) [place] % (Auto) [place] # Seg Neutrophils % Seg Neuts % (Manual) Lymphocytes % (Manual) Monocytes % (Manual) Basophils % (Manual) Nucleated RBC % Seg Neutrophils # Seg Neutrophils # Man Lymphocytes # (Manual) Monocytes # (Manual) Eosinophils # (Manual) Basophils # (Manual) PT INR APTT Heparin Anti-Xa Level 1.15 H POC ABG pH POC ABG pCO2 POC ABG pO2 Sodium Potassium Chloride Carbon Dioxide BUN Creatinine Glucose POC Glucose 122 H 255 H Calcium Phosphorus Magnesium AST Alkaline Phosphatase C-Reactive Protein Total Protein Albumin Lipase Vitamin B12 TSH Urine WBC (Auto) Urine Chloride Urine Total Protein Vancomycin Trough Crossmatch 10/30/16 10/30/16 10/30/16 00:10 05:30 05:30 WBC 19.8 H RBC 2.51 L Hgb 7.7 L Hct 24.1 L MCV RDW 15.5 H Plt Count 534 H Lymph % (Auto) [place] % (Auto) [place] # Seg Neutrophils % Seg Neuts % (Manual) Lymphocytes % (Manual) Monocytes % (Manual) Basophils % (Manual) Nucleated RBC % Seg Neutrophils # Seg Neutrophils # Man Lymphocytes # (Manual) Monocytes # (Manual) Eosinophils # (Manual) Basophils # (Manual) PT INR APTT Heparin Anti-Xa Level POC ABG pH POC ABG pCO2 POC ABG pO2 Sodium Potassium Chloride Carbon Dioxide BUN Creatinine Glucose 211 H POC Glucose 202 H Calcium 7.4 L Phosphorus Magnesium AST Alkaline Phosphatase C-Reactive Protein Total Protein Albumin Lipase Vitamin B12 TSH Urine WBC (Auto) Urine Chloride Urine Total Protein Vancomycin Trough Crossmatch 10/30/16 10/30/16 10/30/16 06:32 12:51 17:47 WBC RBC Hgb Hct MCV RDW Plt Count Lymph % (Auto) [place] % (Auto) [place] # Seg Neutrophils % Seg Neuts % (Manual) Lymphocytes % (Manual) Monocytes % (Manual) Basophils % (Manual) Nucleated RBC % Seg Neutrophils # Seg Neutrophils # Man Lymphocytes # (Manual) Monocytes # (Manual) Eosinophils # (Manual) Basophils # (Manual) PT INR APTT Heparin Anti-Xa Level POC ABG pH POC ABG pCO2 POC ABG pO2 Sodium Potassium Chloride Carbon Dioxide BUN Creatinine Glucose POC Glucose 207 H 218 H 169 H Calcium Phosphorus Magnesium AST Alkaline Phosphatase C-Reactive Protein Total Protein Albumin Lipase Vitamin B12 TSH Urine WBC (Auto) Urine Chloride Urine Total Protein Vancomycin Trough Crossmatch 10/30/16 10/31/16 10/31/16 23:59 05:25 11:21 WBC RBC Hgb Hct MCV RDW Plt Count Lymph % (Auto) [place] % (Auto) [place] # Seg Neutrophils % Seg Neuts % (Manual) Lymphocytes % (Manual) Monocytes % (Manual) Basophils % (Manual) Nucleated RBC % Seg Neutrophils # Seg Neutrophils # Man Lymphocytes # (Manual) Monocytes # (Manual) Eosinophils # (Manual) Basophils # (Manual) PT INR APTT Heparin Anti-Xa Level POC ABG pH POC ABG pCO2 POC ABG pO2 Sodium Potassium Chloride Carbon Dioxide BUN Creatinine Glucose POC Glucose 138 H 127 H 132 H Calcium Phosphorus Magnesium AST Alkaline Phosphatase C-Reactive Protein Total Protein Albumin Lipase Vitamin B12 TSH Urine WBC (Auto) Urine Chloride Urine Total Protein Vancomycin Trough Crossmatch 10/31/16 10/31/16 11/01/16 17:07 23:54 05:47 WBC RBC Hgb Hct MCV RDW Plt Count Lymph % (Auto) [place] % (Auto) [place] # Seg Neutrophils % Seg Neuts % (Manual) Lymphocytes % (Manual) Monocytes % (Manual) Basophils % (Manual) Nucleated RBC % Seg Neutrophils # Seg Neutrophils # Man Lymphocytes # (Manual) Monocytes # (Manual) Eosinophils # (Manual) Basophils # (Manual) PT INR APTT Heparin Anti-Xa Level POC ABG pH POC ABG pCO2 POC ABG pO2 Sodium Potassium Chloride Carbon Dioxide BUN Creatinine Glucose POC Glucose 138 H 153 H 150 H Calcium Phosphorus Magnesium AST Alkaline Phosphatase C-Reactive Protein Total Protein Albumin Lipase Vitamin B12 TSH Urine WBC (Auto) Urine Chloride Urine Total Protein Vancomycin Trough Crossmatch 11/01/16 11/01/16 11/01/16 06:33 06:33 12:16 WBC 19.2 H RBC 2.51 L Hgb 7.9 L Hct 24.8 L MCV 99 H D RDW 16.1 H Plt Count 569 H Lymph % (Auto) [place] % (Auto) [place] # Seg Neutrophils % Seg Neuts % (Manual) Lymphocytes % (Manual) Monocytes % (Manual) Basophils % (Manual) Nucleated RBC % Seg Neutrophils # Seg Neutrophils # Man Lymphocytes # (Manual) Monocytes # (Manual) Eosinophils # (Manual) Basophils # (Manual) PT INR APTT Heparin Anti-Xa Level POC ABG pH POC ABG pCO2 POC ABG pO2 Sodium Potassium 3.5 L Chloride Carbon Dioxide 21 L BUN Creatinine Glucose 137 H POC Glucose 125 H Calcium 7.7 L Phosphorus Magnesium AST Alkaline Phosphatase 148 H C-Reactive Protein Total Protein 6.2 L Albumin 2.0 L Lipase Vitamin B12 TSH Urine WBC (Auto) Urine Chloride Urine Total Protein Vancomycin Trough Crossmatch 11/01/16 11/02/16 11/02/16 17:37 00:05 04:15 WBC RBC Hgb Hct MCV RDW Plt Count Lymph % (Auto) [place] % (Auto) [place] # Seg Neutrophils % Seg Neuts % (Manual) Lymphocytes % (Manual) Monocytes % (Manual) Basophils % (Manual) Nucleated RBC % Seg Neutrophils # Seg Neutrophils # Man Lymphocytes # (Manual) Monocytes # (Manual) Eosinophils # (Manual) Basophils # (Manual) PT INR APTT Heparin Anti-Xa Level < 0.10 L POC ABG pH POC ABG pCO2 POC ABG pO2 Sodium Potassium 3.2 L Chloride Carbon Dioxide BUN 6 L Creatinine Glucose 135 H POC Glucose 164 H Calcium 7.5 L Phosphorus Magnesium AST Alkaline Phosphatase 132 H C-Reactive Protein Total Protein 6.2 L Albumin 1.8 L Lipase Vitamin B12 TSH Urine WBC (Auto) Urine Chloride Urine Total Protein Vancomycin Trough Crossmatch 11/02/16 11/02/16 11/02/16 04:15 05:54 12:15 WBC 17.7 H RBC 2.43 L Hgb 7.6 L Hct 23.5 L MCV RDW 15.9 H Plt Count 502 H Lymph % (Auto) [place] % (Auto) [place] # Seg Neutrophils % Seg Neuts % (Manual) 84.0 H Lymphocytes % (Manual) 11.0 L Monocytes % (Manual) Basophils % (Manual) Nucleated RBC % 1.0 H Seg Neutrophils # Seg Neutrophils # Man 14.9 H Lymphocytes # (Manual) Monocytes # (Manual) Eosinophils # (Manual) Basophils # (Manual) PT INR APTT Heparin Anti-Xa Level POC ABG pH POC ABG pCO2 POC ABG pO2 Sodium Potassium Chloride Carbon Dioxide BUN Creatinine Glucose POC Glucose 152 H 137 H Calcium Phosphorus Magnesium AST Alkaline Phosphatase C-Reactive Protein Total Protein Albumin Lipase Vitamin B12 TSH Urine WBC (Auto) Urine Chloride Urine Total Protein Vancomycin Trough Crossmatch 11/02/16 11/03/16 11/03/16 17:00 00:05 00:05 WBC RBC Hgb Hct MCV RDW Plt Count Lymph % (Auto) [place] % (Auto) [place] # Seg Neutrophils % Seg Neuts % (Manual) Lymphocytes % (Manual) Monocytes % (Manual) Basophils % (Manual) Nucleated RBC % Seg Neutrophils # Seg Neutrophils # Man Lymphocytes # (Manual) Monocytes # (Manual) Eosinophils # (Manual) Basophils # (Manual) PT INR APTT Heparin Anti-Xa Level POC ABG pH POC ABG pCO2 POC ABG pO2 Sodium Potassium Chloride Carbon Dioxide 20 L BUN 5 L Creatinine Glucose 139 H POC Glucose 161 H Calcium 6.7 L Phosphorus Magnesium 1.2 L AST Alkaline Phosphatase C-Reactive Protein Total Protein Albumin Lipase Vitamin B12 TSH Urine WBC (Auto) Urine Chloride Urine Total Protein Vancomycin Trough Crossmatch 11/03/16 11/03/16 11/03/16 00:05 02:05 04:23 WBC 15.9 H 14.0 H RBC 1.93 L 2.38 L Hgb 5.9 L* 7.3 L Hct 18.9 L* 23.1 L MCV 98 H RDW 15.9 H 15.9 H Plt Count Lymph % (Auto) [place] % (Auto) [place] # Seg Neutrophils % Seg Neuts % (Manual) 85.0 H Lymphocytes % (Manual) 4.0 L Monocytes % (Manual) Basophils % (Manual) Nucleated RBC % Seg Neutrophils # Seg Neutrophils # Man 13.5 H Lymphocytes # (Manual) 0.6 L Monocytes # (Manual) Eosinophils # (Manual) Basophils # (Manual) PT INR APTT Heparin Anti-Xa Level POC ABG pH POC ABG pCO2 POC ABG pO2 Sodium Potassium Chloride Carbon Dioxide BUN 5 L Creatinine Glucose 127 H POC Glucose Calcium 7.2 L Phosphorus Magnesium AST Alkaline Phosphatase C-Reactive Protein Total Protein 5.8 L Albumin 1.5 L Lipase Vitamin B12 TSH Urine WBC (Auto) Urine Chloride Urine Total Protein Vancomycin Trough Crossmatch 11/03/16 11/03/16 11/03/16 09:14 09:27 11:54 WBC RBC Hgb Hct MCV RDW Plt Count Lymph % (Auto) [place] % (Auto) [place] # Seg Neutrophils % Seg Neuts % (Manual) Lymphocytes % (Manual) Monocytes % (Manual) Basophils % (Manual) Nucleated RBC % Seg Neutrophils # Seg Neutrophils # Man Lymphocytes # (Manual) Monocytes # (Manual) Eosinophils # (Manual) Basophils # (Manual) PT INR APTT Heparin Anti-Xa Level 0.11 L POC ABG pH POC ABG pCO2 POC ABG pO2 Sodium Potassium Chloride Carbon Dioxide BUN 5 L Creatinine Glucose 111 H POC Glucose 139 H Calcium 6.7 L Phosphorus Magnesium AST Alkaline Phosphatase C-Reactive Protein Total Protein Albumin Lipase Vitamin B12 TSH Urine WBC (Auto) Urine Chloride Urine Total Protein Vancomycin Trough Crossmatch 11/03/16 11/03/16 11/03/16 16:26 18:01 18:01 WBC RBC Hgb Hct MCV RDW Plt Count Lymph % (Auto) [place] % (Auto) [place] # Seg Neutrophils % Seg Neuts % (Manual) Lymphocytes % (Manual) Monocytes % (Manual) Basophils % (Manual) Nucleated RBC % Seg Neutrophils # Seg Neutrophils # Man Lymphocytes # (Manual) Monocytes # (Manual) Eosinophils # (Manual) Basophils # (Manual) PT INR APTT Heparin Anti-Xa Level 2.00 H POC ABG pH POC ABG pCO2 POC ABG pO2 Sodium Potassium Chloride Carbon Dioxide BUN Creatinine Glucose POC Glucose 142 H Calcium Phosphorus Magnesium AST Alkaline Phosphatase C-Reactive Protein Total Protein Albumin Lipase Vitamin B12 TSH Urine WBC (Auto) Urine Chloride Urine Total Protein Vancomycin Trough Crossmatch See Detail 11/04/16 11/04/16 11/04/16 02:15 02:15 06:35 WBC 11.8 H RBC 2.39 L Hgb 7.4 L Hct 23.1 L MCV RDW 15.9 H Plt Count Lymph % (Auto) [place] % (Auto) [place] # Seg Neutrophils % Seg Neuts % (Manual) 76.0 H Lymphocytes % (Manual) 12.0 L Monocytes % (Manual) 9.0 H Basophils % (Manual) Nucleated RBC % Seg Neutrophils # Seg Neutrophils # Man 9.0 H Lymphocytes # (Manual) Monocytes # (Manual) 1.1 H Eosinophils # (Manual) Basophils # (Manual) PT INR APTT Heparin Anti-Xa Level < 0.10 L POC ABG pH POC ABG pCO2 POC ABG pO2 Sodium Potassium Chloride Carbon Dioxide 21 L BUN 5 L Creatinine Glucose 112 H POC Glucose Calcium 6.8 L Phosphorus Magnesium AST Alkaline Phosphatase C-Reactive Protein Total Protein 5.7 L Albumin 1.7 L Lipase Vitamin B12 TSH Urine WBC (Auto) Urine Chloride Urine Total Protein Vancomycin Trough Crossmatch 11/04/16 11/04/16 11/04/16 10:51 12:58 15:04 WBC RBC Hgb Hct MCV RDW Plt Count Lymph % (Auto) [place] % (Auto) [place] # Seg Neutrophils % Seg Neuts % (Manual) Lymphocytes % (Manual) Monocytes % (Manual) Basophils % (Manual) Nucleated RBC % Seg Neutrophils # Seg Neutrophils # Man Lymphocytes # (Manual) Monocytes # (Manual) Eosinophils # (Manual) Basophils # (Manual) PT INR APTT Heparin Anti-Xa Level 1.05 H POC ABG pH POC ABG pCO2 33.7 L POC ABG pO2 60 L Sodium Potassium Chloride Carbon Dioxide BUN Creatinine Glucose POC Glucose 118 H Calcium Phosphorus Magnesium AST Alkaline Phosphatase C-Reactive Protein Total Protein Albumin Lipase Vitamin B12 TSH Urine WBC (Auto) Urine Chloride Urine Total Protein Vancomycin Trough Crossmatch 11/04/16 11/04/16 11/05/16 17:20 20:31 02:30 WBC RBC Hgb Hct MCV RDW Plt Count Lymph % (Auto) [place] % (Auto) [place] # Seg Neutrophils % Seg Neuts % (Manual) Lymphocytes % (Manual) Monocytes % (Manual) Basophils % (Manual) Nucleated RBC % Seg Neutrophils # Seg Neutrophils # Man Lymphocytes # (Manual) Monocytes # (Manual) Eosinophils # (Manual) Basophils # (Manual) PT INR APTT Heparin Anti-Xa Level POC ABG pH POC ABG pCO2 POC ABG pO2 Sodium Potassium 3.5 L Chloride Carbon Dioxide 18 L BUN 5 L Creatinine 0.6 L Glucose 110 H POC Glucose 228 H 169 H Calcium 7.1 L Phosphorus Magnesium AST Alkaline Phosphatase C-Reactive Protein Total Protein Albumin 1.9 L Lipase Vitamin B12 TSH Urine WBC (Auto) Urine Chloride Urine Total Protein Vancomycin Trough Crossmatch 11/05/16 11/05/16 11/05/16 02:30 17:52 21:07 WBC 14.1 H RBC Hgb Hct MCV RDW 16.7 H Plt Count Lymph % (Auto) [place] % (Auto) [place] # Seg Neutrophils % Seg Neuts % (Manual) 80.0 H Lymphocytes % (Manual) 6.0 L Monocytes % (Manual) 8.0 H Basophils % (Manual) Nucleated RBC % Seg Neutrophils # Seg Neutrophils # Man 11.3 H Lymphocytes # (Manual) 0.8 L Monocytes # (Manual) 1.1 H Eosinophils # (Manual) Basophils # (Manual) PT INR APTT Heparin Anti-Xa Level < 0.10 L POC ABG pH POC ABG pCO2 POC ABG pO2 Sodium Potassium Chloride Carbon Dioxide BUN Creatinine Glucose POC Glucose 174 H Calcium Phosphorus Magnesium AST Alkaline Phosphatase C-Reactive Protein Total Protein Albumin Lipase Vitamin B12 TSH Urine WBC (Auto) Urine Chloride Urine Total Protein Vancomycin Trough Crossmatch 11/05/16 11/06/16 11/06/16 23:30 05:00 05:00 WBC 15.2 H RBC 3.29 L Hgb 10.0 L Hct MCV RDW 16.9 H Plt Count Lymph % (Auto) [place] % (Auto) [place] # Seg Neutrophils % Seg Neuts % (Manual) Lymphocytes % (Manual) Monocytes % (Manual) Basophils % (Manual) Nucleated RBC % Seg Neutrophils # Seg Neutrophils # Man Lymphocytes # (Manual) Monocytes # (Manual) Eosinophils # (Manual) Basophils # (Manual) PT INR APTT Heparin Anti-Xa Level 0.94 H POC ABG pH POC ABG pCO2 POC ABG pO2 Sodium Potassium Chloride Carbon Dioxide BUN Creatinine Glucose POC Glucose 131 H Calcium Phosphorus Magnesium AST Alkaline Phosphatase C-Reactive Protein Total Protein Albumin Lipase Vitamin B12 TSH Urine WBC (Auto) Urine Chloride Urine Total Protein Vancomycin Trough Crossmatch 11/06/16 11/06/16 11/06/16 05:00 11:45 18:23 WBC RBC Hgb Hct MCV RDW Plt Count Lymph % (Auto) [place] % (Auto) [place] # Seg Neutrophils % Seg Neuts % (Manual) Lymphocytes % (Manual) Monocytes % (Manual) Basophils % (Manual) Nucleated RBC % Seg Neutrophils # Seg Neutrophils # Man Lymphocytes # (Manual) Monocytes # (Manual) Eosinophils # (Manual) Basophils # (Manual) PT INR APTT Heparin Anti-Xa Level POC ABG pH POC ABG pCO2 POC ABG pO2 Sodium Potassium 3.5 L Chloride 107.1 H Carbon Dioxide 20 L BUN 4 L Creatinine 0.6 L Glucose 104 H POC Glucose 141 H 255 H Calcium 6.7 L Phosphorus Magnesium AST Alkaline Phosphatase C-Reactive Protein Total Protein Albumin Lipase Vitamin B12 TSH Urine WBC (Auto) Urine Chloride Urine Total Protein Vancomycin Trough Crossmatch 11/06/16 11/06/16 11/07/16 22:07 23:07 11:41 WBC RBC Hgb Hct MCV RDW Plt Count Lymph % (Auto) [place] % (Auto) [place] # Seg Neutrophils % Seg Neuts % (Manual) Lymphocytes % (Manual) Monocytes % (Manual) Basophils % (Manual) Nucleated RBC % Seg Neutrophils # Seg Neutrophils # Man Lymphocytes # (Manual) Monocytes # (Manual) Eosinophils # (Manual) Basophils # (Manual) PT INR APTT Heparin Anti-Xa Level 0.80 H POC ABG pH POC ABG pCO2 POC ABG pO2 Sodium Potassium Chloride Carbon Dioxide BUN Creatinine Glucose POC Glucose 183 H 132 H Calcium Phosphorus Magnesium AST Alkaline Phosphatase C-Reactive Protein Total Protein Albumin Lipase Vitamin B12 TSH Urine WBC (Auto) Urine Chloride Urine Total Protein Vancomycin Trough Crossmatch 11/07/16 11/07/16 11/07/16 12:17 17:05 17:58 WBC RBC Hgb Hct MCV RDW Plt Count Lymph % (Auto) [place] % (Auto) [place] # Seg Neutrophils % Seg Neuts % (Manual) Lymphocytes % (Manual) Monocytes % (Manual) Basophils % (Manual) Nucleated RBC % Seg Neutrophils # Seg Neutrophils # Man Lymphocytes # (Manual) Monocytes # (Manual) Eosinophils # (Manual) Basophils # (Manual) PT INR APTT Heparin Anti-Xa Level 0.87 H POC ABG pH 7.324 L POC ABG pCO2 POC ABG pO2 Sodium Potassium Chloride Carbon Dioxide BUN Creatinine Glucose POC Glucose 158 H Calcium Phosphorus Magnesium AST Alkaline Phosphatase C-Reactive Protein Total Protein Albumin Lipase Vitamin B12 TSH Urine WBC (Auto) Urine Chloride Urine Total Protein Vancomycin Trough Crossmatch 11/07/16 11/07/16 11/07/16 23:26 Unknown Unknown WBC 12.3 H RBC 2.96 L Hgb 9.1 L Hct 27.9 L MCV RDW 16.8 H Plt Count Lymph % (Auto) [place] % (Auto) [place] # Seg Neutrophils % Seg Neuts % (Manual) 80.0 H Lymphocytes % (Manual) 7.0 L Monocytes % (Manual) Basophils % (Manual) Nucleated RBC % Seg Neutrophils # Seg Neutrophils # Man 9.8 H Lymphocytes # (Manual) 0.9 L Monocytes # (Manual) Eosinophils # (Manual) Basophils # (Manual) PT INR APTT Heparin Anti-Xa Level POC ABG pH POC ABG pCO2 POC ABG pO2 Sodium Potassium Chloride Carbon Dioxide 19 L BUN Creatinine Glucose 106 H POC Glucose 130 H Calcium 6.9 L Phosphorus Magnesium AST Alkaline Phosphatase C-Reactive Protein Total Protein Albumin Lipase Vitamin B12 TSH Urine WBC (Auto) Urine Chloride Urine Total Protein Vancomycin Trough Crossmatch 11/07/16 11/08/16 11/08/16 Unknown 05:14 05:20 WBC 12.4 H RBC 3.04 L Hgb 9.2 L Hct 28.8 L MCV RDW 16.6 H Plt Count Lymph % (Auto) [place] % (Auto) [place]dwell # Seg Neutrophils % Seg Neuts % (Manual) 77.0 H Lymphocytes % (Manual) 5.0 L Monocytes % (Manual) Basophils % (Manual) 2.0 H Nucleated RBC % Seg Neutrophils # Seg Neutrophils # Man 9.5 H Lymphocytes # (Manual) 0.6 L Monocytes # (Manual) Eosinophils # (Manual) Basophils # (Manual) 0.2 H PT INR APTT Heparin Anti-Xa Level 0.90 H POC ABG pH POC ABG pCO2 POC ABG pO2 Sodium Potassium Chloride Carbon Dioxide BUN Creatinine Glucose POC Glucose 204 H Calcium Phosphorus Magnesium AST Alkaline Phosphatase C-Reactive Protein Total Protein Albumin Lipase Vitamin B12 TSH Urine WBC (Auto) Urine Chloride Urine Total Protein Vancomycin Trough Crossmatch 11/08/16 11/08/16 11/08/16 05:20 12:10 13:10 WBC RBC Hgb Hct MCV RDW Plt Count Lymph % (Auto) [place] % (Auto) [place] # Seg Neutrophils % Seg Neuts % (Manual) Lymphocytes % (Manual) Monocytes % (Manual) Basophils % (Manual) Nucleated RBC % Seg Neutrophils # Seg Neutrophils # Man Lymphocytes # (Manual) Monocytes # (Manual) Eosinophils # (Manual) Basophils # (Manual) PT INR APTT Heparin Anti-Xa Level POC ABG pH POC ABG pCO2 33.7 L POC ABG pO2 Sodium 136 L Potassium Chloride Carbon Dioxide 19 L BUN Creatinine Glucose 192 H POC Glucose 180 H Calcium 7.1 L Phosphorus Magnesium AST Alkaline Phosphatase C-Reactive Protein Total Protein Albumin Lipase Vitamin B12 TSH Urine WBC (Auto) Urine Chloride Urine Total Protein Vancomycin Trough Crossmatch 11/08/16 11/08/16 11/08/16 17:26 20:45 23:34 WBC RBC Hgb Hct MCV RDW Plt Count Lymph % (Auto) [place] % (Auto) [place] # Seg Neutrophils % Seg Neuts % (Manual) Lymphocytes % (Manual) Monocytes % (Manual) Basophils % (Manual) Nucleated RBC % Seg Neutrophils # Seg Neutrophils # Man Lymphocytes # (Manual) Monocytes # (Manual) Eosinophils # (Manual) Basophils # (Manual) PT INR APTT Heparin Anti-Xa Level POC ABG pH POC ABG pCO2 POC ABG pO2 Sodium Potassium Chloride Carbon Dioxide BUN Creatinine Glucose POC Glucose 187 H 178 H Calcium Phosphorus Magnesium AST Alkaline Phosphatase C-Reactive Protein Total Protein Albumin Lipase Vitamin B12 TSH Urine WBC (Auto) Urine Chloride Urine Total Protein Vancomycin Trough 35.4 H Crossmatch 11/09/16 11/09/16 11/09/16 05:30 05:30 05:59 WBC 11.5 H RBC 2.96 L Hgb 9.2 L Hct 28.2 L MCV RDW 16.4 H Plt Count Lymph % (Auto) [place] % (Auto) [place] # Seg Neutrophils % Seg Neuts % (Manual) 76.0 H Lymphocytes % (Manual) 2.0 L Monocytes % (Manual) Basophils % (Manual) Nucleated RBC % Seg Neutrophils # Seg Neutrophils # Man 8.7 H Lymphocytes # (Manual) 0.2 L Monocytes # (Manual) Eosinophils # (Manual) Basophils # (Manual) PT INR APTT Heparin Anti-Xa Level POC ABG pH POC ABG pCO2 POC ABG pO2 Sodium Potassium 3.4 L Chloride 107.6 H Carbon Dioxide 19 L BUN Creatinine 0.6 L Glucose 207 H POC Glucose 263 H Calcium 7.3 L Phosphorus Magnesium AST Alkaline Phosphatase C-Reactive Protein Total Protein Albumin Lipase Vitamin B12 TSH Urine WBC (Auto) Urine Chloride Urine Total Protein Vancomycin Trough Crossmatch Allied health notes reviewed: RT
--- NOTE | 2016-11-09 11:52 | Progress Note ---
Assessment and Plan Assessment and plan: 1. Acute respiratory failure with hypercapnia. Vent supported. s/p Trach and PEG. Continue with bronchodilators and wean as tolerated. 2. Diabetes mellitus type II. DKA resolved. Continue Sliding scale insulin 3. Sepsis- Leukocytosis Improving Suspected due to UTI, urine has only grown Paula, sputum cultures grew group B strep, continue broad-spectrum antibiotics, infectious disease input appreciated 4. 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/right lower extremity gangrene. The patient is status post recent right below the knee amputation. Patient currently on heparin drip. 5. Hypokalemia: Supplement potassium as needed 6. Toxic metabolic encephalopathy. Continue supportive care. 7. Sinus Tachycardia. Physiologic secondary to sepsis. 8. Anemia. Multifactorial including sepsis. s/p transfusion of PRBCs. Continue to follow H&H. 9. RUE DVT. Patient currently on heparin drip. History Interval history: No new issues overnight. Hospitalist Physical - Constitutional Vitals: Temp Pulse Resp BP Pulse Ox 100.9 F H 90 27 H 128/61 100 11/09/16 08:00 11/09/16 11:00 11/09/16 11:00 11/09/16 11:00 11/09/16 11:00 General appearance: Present: no acute distress - EENT Eyes: Present: PERRL, EOM intact ENT: hearing intact, clear oral mucosa, dentition normal - Neck Neck: Present: supple, normal ROM - Respiratory Respiratory effort: normal Respiratory: bilateral: CTA - Cardiovascular Rhythm: regular Heart Sounds: Present: S1 & S2. Absent: gallop, rub - Extremities Extremities: no ischemia, No edema, Full ROM, abnormal (right BKA) - Abdominal General gastrointestinal: soft, non-tender, non-distended, normal bowel sounds - Integumentary Integumentary: Present: clear, warm, dry - Neurologic Neurologic: CNII-XII intact, moves all extremities Results - Labs CBC & Chem 7: 11/09/16 05:30 11/09/16 05:30 Labs: Laboratory Last Values WBC 11.5 K/mm3 (4.5-11.0) H 11/09/16 05:30 RBC 2.96 M/mm3 (3.65-5.03) L 11/09/16 05:30 Hgb 9.2 gm/dl (10.1-14.3) L 11/09/16 05:30 Hct 28.2 % (30.3-42.9) L 11/09/16 05:30 MCV 95 fl (79-97) 11/09/16 05:30 MCH 31 pg (28-32) 11/09/16 05:30 MCHC 33 % (30-34) 11/09/16 05:30 RDW 16.4 % (13.2-15.2) H 11/09/16 05:30 Plt Count 266 K/mm3 (140-440) 11/09/16 05:30 Lymph % (Auto) Billet Recorder 11/04/16 02:15 [place] % (Auto) Billet Recorder 11/04/16 02:15 Eos % (Auto) Billet Recorder 11/04/16 02:15 Baso % (Auto) Billet Recorder 11/04/16 02:15 Lymph # Billet Recorder 11/04/16 02:15 [place] # Billet Recorder 11/04/16 02:15 Eos # Billet Recorder 11/04/16 02:15 Baso # Billet Recorder 11/04/16 02:15 Add Manual Diff Complete 11/09/16 05:30 Total Counted 100 11/09/16 05:30 Seg Neutrophils % Billet Recorder 11/04/16 02:15 Seg Neuts % (Manual) 76.0 % (40.0-70.0) H 11/09/16 05:30 Band Neutrophils % 13.0 % 11/09/16 05:30 Lymphocytes % (Manual) 2.0 % (13.4-35.0) L 11/09/16 05:30 Reactive Lymphs % (Man) 0 % 11/09/16 05:30 Monocytes % (Manual) 5.0 % (0.0-7.3) 11/09/16 05:30 Eosinophils % (Manual) 1.0 % (0.0-4.3) 11/09/16 05:30 Basophils % (Manual) 0 % (0.0-1.8) 11/09/16 05:30 Metamyelocytes % 2.0 % 11/09/16 05:30 Myelocytes % 1.0 % 11/09/16 05:30 Promyelocytes % 0 % 11/09/16 05:30 Blast Cells % 0 % 11/09/16 05:30 Nucleated RBC % Not Reportable 11/09/16 05:30 Seg Neutrophils # Billet Recorder 11/04/16 02:15 Seg Neutrophils # Man 8.7 K/mm3 (1.8-7.7) H 11/09/16 05:30 Band Neutrophils # 1.5 K/mm3 11/09/16 05:30 Lymphocytes # (Manual) 0.2 K/mm3 (1.2-5.4) L 11/09/16 05:30 Abs React Lymphs (Man) 0.0 K/mm3 11/09/16 05:30 Monocytes # (Manual) 0.6 K/mm3 (0.0-0.8) 11/09/16 05:30 Eosinophils # (Manual) 0.1 K/mm3 (0.0-0.4) 11/09/16 05:30 Basophils # (Manual) 0.0 K/mm3 (0.0-0.1) 11/09/16 05:30 Metamyelocytes # 0.2 K/mm3 11/09/16 05:30 Myelocytes # 0.1 K/mm3 11/09/16 05:30 Promyelocytes # 0.0 K/mm3 11/09/16 05:30 Blast Cells # 0.0 K/mm3 11/09/16 05:30 Pathologist Review 10/29/16 09:30 WBC Morphology Not Reportable 11/09/16 05:30 Hypersegmented Neuts Not Reportable 11/09/16 05:30 Hyposegmented Neuts Not Reportable 11/09/16 05:30 Hypogranular Neuts Not Reportable 11/09/16 05:30 Hypersegmented Polys TNR 10/17/16 07:08 Smudge Cells Not Reportable 11/09/16 05:30 Toxic Granulation Not Reportable 11/09/16 05:30 Toxic Vacuolation Not Reportable 11/09/16 05:30 Dohle Bodies Not Reportable 11/09/16 05:30 Pelger-Huet Anomaly Not Reportable 11/09/16 05:30 [place] Rods Not Reportable 11/09/16 05:30 Platelet Estimate Not Reportable 11/09/16 05:30 Clumped Platelets Not Reportable 11/09/16 05:30 Plt Clumps, EDTA Not Reportable 11/09/16 05:30 Large Platelets Not Reportable 11/09/16 05:30 Giant Platelets Not Reportable 11/09/16 05:30 Platelet Satelliting Not Reportable 11/09/16 05:30 Plt Morphology Comment Not Reportable 11/09/16 05:30 RBC Morphology Not Reportable 11/09/16 05:30 Dimorphic RBCs Not Reportable 11/09/16 05:30 Polychromasia Few 11/09/16 05:30 Hypochromasia Not Reportable 11/09/16 05:30 Poikilocytosis Not Reportable 11/09/16 05:30 Basophilic Stippling TNR 10/17/16 07:08 Anisocytosis Not Reportable 11/09/16 05:30 Microcytosis Not Reportable 11/09/16 05:30 Macrocytosis Not Reportable 11/09/16 05:30 Spherocytes Not Reportable 11/09/16 05:30 Pappenheimer Bodies Not Reportable 11/09/16 05:30 Sickle Cells Not Reportable 11/09/16 05:30 Target Cells Not Reportable 11/09/16 05:30 Tear Drop Cells Not Reportable 11/09/16 05:30 Ovalocytes Few 11/09/16 05:30 Stomatocytes Few 11/03/16 00:05 Helmet Cells Not Reportable 11/09/16 05:30 [place] Bodies Not Reportable 11/09/16 05:30 [place] Rings Not Reportable 11/09/16 05:30 Jeannette Cells Not Reportable 11/09/16 05:30 Bite Cells Not Reportable 11/09/16 05:30 Crenated Cell Not Reportable 11/09/16 05:30 Elliptocytes Not Reportable 11/09/16 05:30 Acanthocytes (Spur) Not Reportable 11/09/16 05:30 Rouleaux Not Reportable 11/09/16 05:30 Hemoglobin C Crystals Not Reportable 11/09/16 05:30 Schistocytes Not Reportable 11/09/16 05:30 Malaria parasites Not Reportable 11/09/16 05:30 David Bodies Not Reportable 11/09/16 05:30 Hem Pathologist Commnt No 11/09/16 05:30 PT 16.4 Sec. (12.2-14.9) H 10/17/16 16:07 INR 1.33 (0.87-1.13) H 10/17/16 16:07 APTT 38.8 Sec. (24.2-36.6) H 10/17/16 16:07 Heparin Anti-Xa Level 0.53 U.I./ml (0.3-0.7) 11/09/16 05:30 POC ABG pH 7.361 (7.35-7.45) 11/08/16 12:10 POC ABG pCO2 33.7 (35-45) L 11/08/16 12:10 POC ABG pO2 90 (80-105) 11/08/16 12:10 POC ABG HCO3 19.1 11/08/16 12:10 POC ABG Total CO2 20 11/08/16 12:10 POC ABG O2 Sat 97 11/08/16 12:10 POC ABG Base Excess -6 11/08/16 12:10 VBG pH 7.020 (7.320-7.420) L* 10/13/16 04:22 FiO2 25 % 11/08/16 12:10 Sodium 139 mmol/L (137-145) 11/09/16 05:30 Potassium 3.4 mmol/L (3.6-5.0) L 11/09/16 05:30 Chloride 107.6 mmol/L (98-107) H 11/09/16 05:30 Carbon Dioxide 19 mmol/L (22-30) L 11/09/16 05:30 Anion Gap 16 mmol/L 11/09/16 05:30 BUN 7 mg/dL (7-17) 11/09/16 05:30 Creatinine 0.6 mg/dL (0.7-1.2) L 11/09/16 05:30 Estimated GFR > 60 ml/min 11/09/16 05:30 BUN/Creatinine Ratio 11.66 % 11/09/16 05:30 Glucose 207 mg/dL (65-100) H 11/09/16 05:30 POC Glucose 263 (70-105) H 11/09/16 05:59 Osmolality 332 Mosm/kg 10/14/16 07:03 Lactic Acid 1.8 mmol/L (0.7-2.0) 10/14/16 07:03 Calcium 7.3 mg/dL (8.4-10.2) L 11/09/16 05:30 Phosphorus 2.7 mg/dL (2.5-4.5) D 10/21/16 Unknown Magnesium 1.2 mg/dL (1.7-2.3) L 11/03/16 00:05 Total Bilirubin 0.3 mg/dL (0.1-1.2) 11/05/16 02:30 AST 9 units/L (5-40) 11/05/16 02:30 ALT 11 units/L (7-56) 11/05/16 02:30 Alkaline Phosphatase 119 units/L (35-129) 11/05/16 02:30 Ammonia 35.0 umol/L (25-60) 10/13/16 05:40 Total Creatine Kinase 107 units/L (30-135) 10/13/16 04:22 CK-MB (CK-2) 3.1 ng/mL (0.0-4.0) 10/13/16 04:22 CK-MB (CK-2) Rel Index 2.8 (0-4) 10/13/16 04:22 Troponin T < 0.010 ng/mL (0.00-0.029) 10/14/16 18:55 C-Reactive Protein 10.50 mg/dL (0.00-1.30) H 10/13/16 16:14 Total Protein 6.7 g/dL (6.3-8.2) 11/05/16 02:30 Albumin 1.9 g/dL (3.9-5) L 11/05/16 02:30 Albumin/Globulin Ratio 0.4 % 11/05/16 02:30 Amylase 57 units/L (27-131) 10/26/16 20:00 Lipase 58 units/L (13-60) 10/26/16 20:00 Vitamin B12 976.8 pg/mL (211-911) H 10/22/16 10:25 TSH 0.162 mlU/mL (0.270-4.200) L 10/22/16 14:50 Free T4 0.77 ng/dL (0.76-1.46) 10/22/16 14:50 Urine Color Yellow (Yellow) 10/15/16 11:05 Urine Turbidity Cloudy (Clear) 10/15/16 11:05 Urine pH 5.0 (5.0-7.0) 10/15/16 11:05 Ur Specific [place] 1.009 (1.003-1.030) 10/15/16 11:05 Urine Protein 30 mg/dl mg/dL (Negative) 10/15/16 11:05 Urine Glucose (UA) 150 mg/dL (Negative) 10/15/16 11:05 Urine Ketones Neg mg/dL (Negative) 10/15/16 11:05 Urine Blood Lg (Negative) 10/15/16 11:05 Urine Nitrite Neg (Negative) 10/15/16 11:05 Urine Bilirubin Neg (Negative) 10/15/16 11:05 Urine Urobilinogen < 2.0 mg/dL (<2.0) 10/15/16 11:05 Ur Leukocyte Esterase Neg (Negative) 10/15/16 11:05 Urine WBC (Auto) 7.0 /HPF (0.0-6.0) H 10/15/16 11:05 Urine RBC (Auto) 7.0 /HPF (0.0-6.0) 10/15/16 11:05 U Epithel Cells (Auto) 1.0 /HPF (0-13.0) 10/15/16 11:05 Urine Mucus Few /HPF 10/15/16 11:05 Urine Yeast (Budding) 2+ /HPF 10/15/16 11:05 Urine Osmolality 487 Mosm/kg 10/13/16 Unknown Urine Creatinine < 4.2 mg/dL (0.1-20.0) 10/13/16 Unknown Protein/Creatinin Ratio 0.00 10/13/16 Unknown Urine Sodium 10 mEq/L 10/13/16 Unknown Urine Potassium 1.00 mEq/L 10/13/16 Unknown Urine Chloride 10.0 mEq/L (110-250) L 10/13/16 Unknown Urine Total Protein < 4 mg/dL (5-11.8) L 10/13/16 Unknown Vancomycin Trough 35.4 ug/mL (5.0-20.0) H 11/08/16 20:45 Ketones 107.3 mg/dL (0.2-2.8) H 10/13/16 04:22 Blood Type A POSITIVE 11/03/16 18:01 Antibody Screen Negative 11/03/16 18:01 Crossmatch See Detail 11/03/16 18:01
--- NOTE | 2016-11-09 15:12 | Progress Note ---
Assessment and Plan Patient is status post right below the knee amputation. Knee immobilizer should remain in place except when the patient is in therapy or with dressing changes. Okay to change bandages daily at this point. - Patient Problems (1) Ischemia of right lower extremity Current Visit: Yes Status: Acute (2) DKA (diabetic ketoacidoses) Current Visit: Yes Status: Acute Qualifiers: Diabetes mellitus type: D Diabetes mellitus complication detail: D (3) Acute on chronic renal failure Current Visit: Yes Status: Acute (4) Altered mental status Current Visit: Yes Status: Acute Qualifiers: Altered mental status type: A Coma depth: C Coma timing: C (5) Diabetes Current Visit: No Status: Chronic Qualifiers: Diabetes mellitus type: D Diabetes mellitus complication status: D Diabetes mellitus complication detail: D Diabetic retinopathy severity: D Proliferative retinopathy type: P Diabetes mellitus macular edema: D Diabetes mellitus shelter insulin use: D Laterality: L Chronic kidney disease stage: C (6) Dyslipidemia Current Visit: No Status: Chronic (7) Hypertension Current Visit: No Status: Chronic Qualifiers: Hypertension type: H Subjective Date of service: 11/09/16 Principal diagnosis: respiratory failure on mechanical ventilatory support, DKA Interval history: Patient is awake on the vent. She denies pain at present. Objective - Constitutional Vitals: Vital Signs - 12hr 11/09/16 11/09/16 11/09/16 04:00 04:01 04:05 Temperature 100.8 F H Pulse Rate 111 H Pulse Rate [ 111 H From Monitor] Respiratory 22 22 Rate Blood Pressure 155/75 O2 Sat by Pulse 99 99 Oximetry O2 Sat by Pulse Oximetry [ Assessment] 11/09/16 11/09/16 11/09/16 05:00 05:15 05:16 Temperature Pulse Rate 103 H 103 H Pulse Rate [ From Monitor] Respiratory 16 16 Rate Blood Pressure 147/67 147/67 O2 Sat by Pulse 100 Oximetry O2 Sat by Pulse Oximetry [ Assessment] 11/09/16 11/09/16 11/09/16 06:00 06:04 07:00 Temperature Pulse Rate 105 H 102 H 98 H Pulse Rate [ From Monitor] Respiratory 19 17 Rate Blood Pressure 136/63 136/63 137/57 O2 Sat by Pulse 99 100 99 Oximetry O2 Sat by Pulse Oximetry [ Assessment] 11/09/16 11/09/16 11/09/16 08:00 08:44 08:51 Temperature 100.9 F H Pulse Rate 93 H 88 92 H Pulse Rate [ From Monitor] Respiratory 19 Rate Blood Pressure 137/59 130/65 130/65 O2 Sat by Pulse 100 100 100 Oximetry O2 Sat by Pulse Oximetry [ Assessment] 11/09/16 11/09/16 11/09/16 08:59 09:00 10:00 Temperature Pulse Rate 92 H 92 H 89 Pulse Rate [ From Monitor] Respiratory 27 H 28 H 27 H Rate Blood Pressure 130/65 131/60 134/64 O2 Sat by Pulse 100 99 100 Oximetry O2 Sat by Pulse Oximetry [ Assessment] 11/09/16 11/09/16 11/09/16 11:00 12:00 12:20 Temperature 100.5 F H Pulse Rate 90 99 H 99 H Pulse Rate [ From Monitor] Respiratory 27 H 21 261 H Rate Blood Pressure 128/61 143/71 143/71 O2 Sat by Pulse 100 100 100 Oximetry O2 Sat by Pulse Oximetry [ Assessment] 11/09/16 11/09/16 11/09/16 12:22 12:41 13:51 Temperature Pulse Rate 97 H Pulse Rate [ From Monitor] Respiratory Rate Blood Pressure 145/62 O2 Sat by Pulse 100 Oximetry O2 Sat by Pulse 100 Oximetry [ Assessment] General appearance: Present: no acute distress - EENT Eyes: EOM intact ENT: hearing intact - Neck Neck: other (trach in place) - Respiratory Respiratory effort: other (on mechanical ventilation) Extremities: no ischemia, abnormal (right BKA bandages removed incision intact roxane in place no erythema or drainage appreciated. She has a small skin ulceration on the distal flap that was on her leg prior to surgery. The skin remains viable at this point.) - Psychiatric Psychiatric: cooperative - Labs CBC & Chem 7: 11/09/16 05:30 11/09/16 05:30 Labs: Abnormal lab results 11/08/16 11/08/16 11/08/16 Range/Units 13:10 17:26 20:45 WBC (4.5-11.0) K/mm3 RBC (3.65-5.03) M/mm3 Hgb (10.1-14.3) gm/dl Hct (30.3-42.9) % RDW (13.2-15.2) % Seg Neuts % (Manual) (40.0-70.0) % Lymphocytes % (Manual) (13.4-35.0) % Seg Neutrophils # Man (1.8-7.7) K/mm3 Lymphocytes # (Manual) (1.2-5.4) K/mm3 Potassium (3.6-5.0) mmol/L Chloride (98-107) mmol/L Carbon Dioxide (22-30) mmol/L Creatinine (0.7-1.2) mg/dL Glucose (65-100) mg/dL POC Glucose 180 H 187 H (70-105) Calcium (8.4-10.2) mg/dL Vancomycin Trough 35.4 H (5.0-20.0) ug/mL 11/08/16 11/09/16 11/09/16 Range/Units 23:34 05:30 05:30 WBC 11.5 H (4.5-11.0) K/mm3 RBC 2.96 L (3.65-5.03) M/mm3 Hgb 9.2 L (10.1-14.3) gm/dl Hct 28.2 L (30.3-42.9) % RDW 16.4 H (13.2-15.2) % Seg Neuts % (Manual) 76.0 H (40.0-70.0) % Lymphocytes % (Manual) 2.0 L (13.4-35.0) % Seg Neutrophils # Man 8.7 H (1.8-7.7) K/mm3 Lymphocytes # (Manual) 0.2 L (1.2-5.4) K/mm3 Potassium 3.4 L (3.6-5.0) mmol/L Chloride 107.6 H (98-107) mmol/L Carbon Dioxide 19 L (22-30) mmol/L Creatinine 0.6 L (0.7-1.2) mg/dL Glucose 207 H (65-100) mg/dL POC Glucose 178 H (70-105) Calcium 7.3 L (8.4-10.2) mg/dL Vancomycin Trough (5.0-20.0) ug/mL 11/09/16 11/09/16 Range/Units 05:59 11:49 WBC (4.5-11.0) K/mm3 RBC (3.65-5.03) M/mm3 Hgb (10.1-14.3) gm/dl Hct (30.3-42.9) % RDW (13.2-15.2) % Seg Neuts % (Manual) (40.0-70.0) % Lymphocytes % (Manual) (13.4-35.0) % Seg Neutrophils # Man (1.8-7.7) K/mm3 Lymphocytes # (Manual) (1.2-5.4) K/mm3 Potassium (3.6-5.0) mmol/L Chloride (98-107) mmol/L Carbon Dioxide (22-30) mmol/L Creatinine (0.7-1.2) mg/dL Glucose (65-100) mg/dL POC Glucose 263 H 269 H (70-105) Calcium (8.4-10.2) mg/dL Vancomycin Trough (5.0-20.0) ug/mL
[2016-11-09 15:49] LABS: ISTAT Base Excess -7; ISTAT HCO3 18.8; ISTAT PCO2 33.8 (35-45); ISTAT PH 7.353 (7.35-7.45); ISTAT PO2 131 (80-105); ISTAT SO2 99; ISTAT TCO2 20
--- NOTE | 2016-11-09 20:35 | Progress Note ---
Subjective Date of service: 11/09/16 Principal diagnosis: respiratory failure on mechanical ventilatory support, DKA Interval history: AWAKE. Fever S/P surgery. Vital signs - Temp 98 CHEST - GOOD AIR ENTRY CVS - S1S2 ABD - BS_ LABS See lab section. ASSESSMENT 1. Sepsis 2. dka 3. resp failure 4. htn 5. clostridium difficile colitis 6. bilateral pneumonia 6. RIGHT LEG GANGRENE s/p amputation RECOMMENDATION 1. CONTINUE IV clindamycin. Levaquin iv restarted. Continue iv vancomycin 2. blood culture. Objective - Constitutional Vitals: Vital Signs Temp Pulse Resp BP Pulse Ox 99.5 F 106 H 15 137/75 100 11/09/16 20:00 11/09/16 20:00 11/09/16 20:00 11/09/16 19:59 11/09/16 20:00 Temperature -Last 24 Hours Temperature 99.5 F Temperature 101.1 F Temperature 100.5 F Temperature 100.9 F Temperature 100.8 F Temperature 100.3 F - Labs CBC & Chem 7: 11/09/16 05:30 11/09/16 05:30 Labs: Abnormal lab results 11/08/16 11/08/16 11/08/16 Range/Units 17:26 20:45 23:34 WBC (4.5-11.0) K/mm3 RBC (3.65-5.03) M/mm3 Hgb (10.1-14.3) gm/dl Hct (30.3-42.9) % RDW (13.2-15.2) % Seg Neuts % (Manual) (40.0-70.0) % Lymphocytes % (Manual) (13.4-35.0) % Seg Neutrophils # Man (1.8-7.7) K/mm3 Lymphocytes # (Manual) (1.2-5.4) K/mm3 POC ABG pCO2 (35-45) POC ABG pO2 (80-105) Potassium (3.6-5.0) mmol/L Chloride (98-107) mmol/L Carbon Dioxide (22-30) mmol/L Creatinine (0.7-1.2) mg/dL Glucose (65-100) mg/dL POC Glucose 187 H 178 H (70-105) Calcium (8.4-10.2) mg/dL Vancomycin Trough 35.4 H (5.0-20.0) ug/mL 11/09/16 11/09/16 11/09/16 Range/Units 05:30 05:30 05:59 WBC 11.5 H (4.5-11.0) K/mm3 RBC 2.96 L (3.65-5.03) M/mm3 Hgb 9.2 L (10.1-14.3) gm/dl Hct 28.2 L (30.3-42.9) % RDW 16.4 H (13.2-15.2) % Seg Neuts % (Manual) 76.0 H (40.0-70.0) % Lymphocytes % (Manual) 2.0 L (13.4-35.0) % Seg Neutrophils # Man 8.7 H (1.8-7.7) K/mm3 Lymphocytes # (Manual) 0.2 L (1.2-5.4) K/mm3 POC ABG pCO2 (35-45) POC ABG pO2 (80-105) Potassium 3.4 L (3.6-5.0) mmol/L Chloride 107.6 H (98-107) mmol/L Carbon Dioxide 19 L (22-30) mmol/L Creatinine 0.6 L (0.7-1.2) mg/dL Glucose 207 H (65-100) mg/dL POC Glucose 263 H (70-105) Calcium 7.3 L (8.4-10.2) mg/dL Vancomycin Trough (5.0-20.0) ug/mL 11/09/16 11/09/16 11/09/16 Range/Units 11:49 15:24 18:04 WBC (4.5-11.0) K/mm3 RBC (3.65-5.03) M/mm3 Hgb (10.1-14.3) gm/dl Hct (30.3-42.9) % RDW (13.2-15.2) % Seg Neuts % (Manual) (40.0-70.0) % Lymphocytes % (Manual) (13.4-35.0) % Seg Neutrophils # Man (1.8-7.7) K/mm3 Lymphocytes # (Manual) (1.2-5.4) K/mm3 POC ABG pCO2 33.8 L (35-45) POC ABG pO2 131 H (80-105) Potassium (3.6-5.0) mmol/L Chloride (98-107) mmol/L Carbon Dioxide (22-30) mmol/L Creatinine (0.7-1.2) mg/dL Glucose (65-100) mg/dL POC Glucose 269 H 242 H (70-105) Calcium (8.4-10.2) mg/dL Vancomycin Trough (5.0-20.0) ug/mL
[2016-11-09] MEDS: LEVAQUIN 750MG/150ML 750 MG/150 ML BAG IV SCH (21:46)
[2016-11-10 05:18] LABS: Hematocrit 30.2 % (30.3-42.9); Hemoglobin 9.7 gm/dl (10.1-14.3); Mean Corpuscular HGB Conc 32 % (30-34); Mean Corpuscular Hemoglobin 31 pg (28-32); Mean Corpuscular Volume 95 fl (79-97); Platelet Count 309 K/mm3 (140-440); Red Blood Count 3.17 M/mm3 (3.65-5.03); Red Cell Distribution Width 16.2 % (13.2-15.2); White Blood Count 15.7 K/mm3 (4.5-11.0)
[2016-11-10 05:29] LABS: Anion Gap 19 mmol/L; BUN/Creatinine Ratio 11.66; Blood Urea Nitrogen 7 mg/dL (7-17); Calcium 7.8 mg/dL (8.4-10.2); Carbon Dioxide 19 mmol/L (22-30); Chloride 104.8 mmol/L (98-107); Glucose 199 mg/dL (65-100); Potassium 3.8 mmol/L (3.6-5.0); Sodium 139 mmol/L (137-145)
[2016-11-10] MEDS: CLEOCIN 600 MG/50 mL 600 MG/50 ML BAG IV SCH ×3 (06:10→23:51)
[2016-11-10 06:43] LABS: Anisocytosis 1+; Basophils % (Manual) 0 % (0.0-1.8); Blastocytes % (Manual) 0 %
[2016-11-10 06:44] LABS: Diff Status Complete; Ovalocytes Few; Polychromasia Rare; Smudge Cells Few
[2016-11-10] MEDS: fentaNYL DRIP Premix 2,000 MCG/100 ML BAG IV SCH ×3 (07:10→10:32)
[2016-11-10] MEDS: LOPRESSOR FEEDTUBE SCH ×3 (07:37→22:04)
[2016-11-10] MEDS: REGLAN IV SCH ×4 (07:38→23:52)
[2016-11-10] MEDS: HEPARIN/ 0.45% NACL-25,000 UNIT/500 ML 25,000 UNITS/500 ML BAG IV SCH ×2 (08:30→22:06)
[2016-11-10] MEDS: CARDIZEM IV PRN (09:08)
[2016-11-10] MEDS: PLAVIX PO SCH (10:00)
[2016-11-10] MEDS: PEPCID PO SCH ×2 (10:00→22:04)
[2016-11-10] MEDS: DILAUDID IV PRN (11:10)
--- NOTE | 2016-11-10 11:25 | Progress Note ---
Assessment and Plan - Patient Problems (1) Acute respiratory failure with hypercapnia Current Visit: Yes Status: Acute Plan to address problem: - continue aspiration precautions / VAP bundles - continue bronchodilators and pulmonary toilet - wean oxygen to keep sats > 94% - reduce sedation and allow spontaneous breaths - resume MVS till more stable clinically - repeat CXR re: extent of aspiration and r/o new process (2) Altered mental status Current Visit: Yes Status: Acute Qualifiers: Altered mental status type: A Coma depth: C Coma timing: C Plan to address problem: - no active seizures - following clinically - seen by neurology and will follow their recommendations - no seizures on EEG - more appropriate clinically (3) LUCY (acute kidney injury) Current Visit: Yes Status: Acute Plan to address problem: - resolved - follow I's & O's (4) DKA (diabetic ketoacidoses) Current Visit: Yes Status: Acute Qualifiers: Diabetes mellitus type: D Diabetes mellitus complication detail: D Plan to address problem: - resolved - continue SSI (5) Sepsis Current Visit: No Status: Acute Qualifiers: Sepsis type: S Plan to address problem: - continue anti-infectives per ID recs - follow clinically (improved) - trend lactate and CRP prn - improving numbers post amputation (6) Emesis Current Visit: Yes Status: Acute Qualifiers: Vomiting type: V Vomiting Intractability: V Nausea presence: N Plan to address problem: (KUB with gastric and some bowel dialatation) - NGT to LIS overnight - increase reglan dose - reduce fentanyl dose and use other sedative (re: opiates and G.I. motility) - continue aspiration precautions (7) Discharge planning issues Current Visit: No Status: Acute Plan to address problem: ...hopefully weans well, tolerates t-piece and can soon transfer out of ICU ...for now remains critically ill on life sustaining treatments including MVS and at high risk for further deterioration including ...34' CCT Subjective Date of service: 11/10/16 Principal diagnosis: respiratory failure on mechanical ventilatory support, DKA Interval history: Seen and examined at bedside; 24 hour events reviewed; nursing and respiratory care staff consulted; no adverse overnight events reported to me; apparently bouts of emesis most of night with likely some aspiration as not tolerating weaning today and with increased rales on examination; sedation increased; no gross bleeding or high grade fevers Objective Vital Signs - 12hr 11/10/16 11/10/16 11/10/16 00:00 01:00 02:00 Temperature 98.8 F Pulse Rate 124 H 110 H 107 H Pulse Rate [ 108 H Apical] Pulse Rate [ 108 H From Monitor] Pulse Rate [ 108 H Left Dorsalis Pedis] Pulse Rate [ 108 H Left Radial] Pulse Rate [ 108 H Right Radial] Respiratory 29 H 32 H 26 H Rate Blood Pressure 176/98 172/88 166/81 O2 Sat by Pulse 100 99 100 Oximetry O2 Sat by Pulse Oximetry [ Assessment] 11/10/16 11/10/16 11/10/16 03:00 03:59 04:00 Temperature 98.3 F Pulse Rate 115 H 111 H 111 H Pulse Rate [ Apical] Pulse Rate [ From Monitor] Pulse Rate [ Left Dorsalis Pedis] Pulse Rate [ Left Radial] Pulse Rate [ Right Radial] Respiratory 23 34 H 34 H Rate Blood Pressure 172/90 167/87 171/85 O2 Sat by Pulse 100 99 98 Oximetry O2 Sat by Pulse Oximetry [ Assessment] 11/10/16 11/10/16 11/10/16 04:09 05:00 06:00 Temperature Pulse Rate 108 H 111 H Pulse Rate [ Apical] Pulse Rate [ From Monitor] Pulse Rate [ Left Dorsalis Pedis] Pulse Rate [ Left Radial] Pulse Rate [ Right Radial] Respiratory 34 H 21 Rate Blood Pressure 179/87 165/85 O2 Sat by Pulse 97 99 Oximetry O2 Sat by Pulse 99 Oximetry [ Assessment] 11/10/16 11/10/16 11/10/16 06:13 07:00 07:05 Temperature Pulse Rate 137 H 108 H Pulse Rate [ Apical] Pulse Rate [ From Monitor] Pulse Rate [ Left Dorsalis Pedis] Pulse Rate [ Left Radial] Pulse Rate [ Right Radial] Respiratory 22 Rate Blood Pressure 174/84 161/86 O2 Sat by Pulse 98 99 99 Oximetry O2 Sat by Pulse Oximetry [ Assessment] 11/10/16 11/10/16 11/10/16 07:37 08:00 09:00 Temperature 99.3 F Pulse Rate 87 116 H 114 H Pulse Rate [ Apical] Pulse Rate [ From Monitor] Pulse Rate [ Left Dorsalis Pedis] Pulse Rate [ Left Radial] Pulse Rate [ Right Radial] Respiratory 25 H 27 H Rate Blood Pressure 156/85 172/94 176/96 O2 Sat by Pulse 98 99 Oximetry O2 Sat by Pulse 98 Oximetry [ Assessment] 11/10/16 11/10/16 11/10/16 09:08 09:50 10:00 Temperature Pulse Rate 128 H 119 H 124 H Pulse Rate [ Apical] Pulse Rate [ From Monitor] Pulse Rate [ Left Dorsalis Pedis] Pulse Rate [ Left Radial] Pulse Rate [ Right Radial] Respiratory 28 H 25 H Rate Blood Pressure 192/96 171/108 162/90 O2 Sat by Pulse 99 99 Oximetry O2 Sat by Pulse Oximetry [ Assessment] Constitutional: no acute distress, other (sedated) Eyes: non-icteric ENT: oropharynx moist Neck: supple, no lymphadenopathy Effort: mildly labored Ascultation: Bilateral: diminished breath sounds, rales Cardiovascular: regular rate and rhythm, other (tachycardia) Gastrointestinal: normoactive bowel sounds, soft, non-tender, non-distended Integumentary: normal Extremities: no cyanosis, no edema, no ischemia or petechiae, other (s/p right BKA) Neurologic: non-focal exam (grossly), pupils equal and round, other (sedated) Psychiatric: other (sedated) CBC and BMP: 11/10/16 04:30 11/10/16 04:30 ABG, PT/INR, D-dimer: ABG POC ABG pH 7.353 (7.35-7.45) 11/09/16 15:24 POC ABG pCO2 33.8 (35-45) L 11/09/16 15:24 POC ABG pO2 131 (80-105) H 11/09/16 15:24 POC ABG HCO3 18.8 11/09/16 15:24 POC ABG Total CO2 20 11/09/16 15:24 POC ABG O2 Sat 99 11/09/16 15:24 PT/INR, D-dimer PT 16.4 Sec. (12.2-14.9) H 10/17/16 16:07 INR 1.33 (0.87-1.13) H 10/17/16 16:07 Abnormal lab findings: Abnormal Labs 10/13/16 10/13/16 10/13/16 06:38 06:38 07:23 WBC RBC Hgb Hct MCV RDW Plt Count Lymph % (Auto) [place] % (Auto) [place] # Seg Neutrophils % Seg Neuts % (Manual) Lymphocytes % (Manual) Monocytes % (Manual) Basophils % (Manual) Nucleated RBC % Seg Neutrophils # Seg Neutrophils # Man Lymphocytes # (Manual) Monocytes # (Manual) Eosinophils # (Manual) Basophils # (Manual) PT INR APTT Heparin Anti-Xa Level POC ABG pH POC ABG pCO2 POC ABG pO2 Sodium Potassium 6.2 H* Chloride Carbon Dioxide 8 L* BUN 85 H Creatinine 2.8 H Glucose 602 H* POC Glucose 495 H Calcium 7.9 L Phosphorus 6.9 H D Magnesium 3.0 H AST Alkaline Phosphatase C-Reactive Protein Total Protein Albumin Lipase Vitamin B12 TSH Urine WBC (Auto) Urine Chloride Urine Total Protein Vancomycin Trough Crossmatch 10/13/16 10/13/16 10/13/16 08:49 08:55 10:12 WBC RBC Hgb Hct MCV RDW Plt Count Lymph % (Auto) [place] % (Auto) [place] # Seg Neutrophils % Seg Neuts % (Manual) Lymphocytes % (Manual) Monocytes % (Manual) Basophils % (Manual) Nucleated RBC % Seg Neutrophils # Seg Neutrophils # Man Lymphocytes # (Manual) Monocytes # (Manual) Eosinophils # (Manual) Basophils # (Manual) PT INR APTT Heparin Anti-Xa Level POC ABG pH POC ABG pCO2 POC ABG pO2 Sodium Potassium 5.6 H Chloride Carbon Dioxide 11 L BUN 77 H Creatinine 2.7 H Glucose 457 H POC Glucose > 500 H 424 H Calcium 8.0 L Phosphorus Magnesium AST Alkaline Phosphatase C-Reactive Protein Total Protein Albumin Lipase Vitamin B12 TSH Urine WBC (Auto) Urine Chloride Urine Total Protein Vancomycin Trough Crossmatch 10/13/16 10/13/16 10/13/16 10:44 11:22 12:20 WBC RBC Hgb Hct MCV RDW Plt Count Lymph % (Auto) [place] % (Auto) [place] # Seg Neutrophils % Seg Neuts % (Manual) Lymphocytes % (Manual) Monocytes % (Manual) Basophils % (Manual) Nucleated RBC % Seg Neutrophils # Seg Neutrophils # Man Lymphocytes # (Manual) Monocytes # (Manual) Eosinophils # (Manual) Basophils # (Manual) PT INR APTT Heparin Anti-Xa Level POC ABG pH POC ABG pCO2 POC ABG pO2 Sodium Potassium 5.4 H Chloride Carbon Dioxide 14 L BUN 72 H Creatinine 2.6 H Glucose 383 H POC Glucose 391 H 313 H Calcium 8.2 L Phosphorus Magnesium AST Alkaline Phosphatase C-Reactive Protein Total Protein Albumin Lipase Vitamin B12 TSH Urine WBC (Auto) Urine Chloride Urine Total Protein Vancomycin Trough Crossmatch 10/13/16 10/13/16 10/13/16 13:32 14:44 15:57 WBC RBC Hgb Hct MCV RDW Plt Count Lymph % (Auto) [place] % (Auto) [place] # Seg Neutrophils % Seg Neuts % (Manual) Lymphocytes % (Manual) Monocytes % (Manual) Basophils % (Manual) Nucleated RBC % Seg Neutrophils # Seg Neutrophils # Man Lymphocytes # (Manual) Monocytes # (Manual) Eosinophils # (Manual) Basophils # (Manual) PT INR APTT Heparin Anti-Xa Level POC ABG pH POC ABG pCO2 POC ABG pO2 Sodium Potassium Chloride Carbon Dioxide BUN Creatinine Glucose POC Glucose 296 H 210 H 190 H Calcium Phosphorus Magnesium AST Alkaline Phosphatase C-Reactive Protein Total Protein Albumin Lipase Vitamin B12 TSH Urine WBC (Auto) Urine Chloride Urine Total Protein Vancomycin Trough Crossmatch 10/13/16 10/13/16 10/13/16 16:14 16:14 17:17 WBC RBC Hgb Hct MCV RDW Plt Count Lymph % (Auto) [place] % (Auto) [place] # Seg Neutrophils % Seg Neuts % (Manual) Lymphocytes % (Manual) Monocytes % (Manual) Basophils % (Manual) Nucleated RBC % Seg Neutrophils # Seg Neutrophils # Man Lymphocytes # (Manual) Monocytes # (Manual) Eosinophils # (Manual) Basophils # (Manual) PT INR APTT Heparin Anti-Xa Level POC ABG pH POC ABG pCO2 POC ABG pO2 Sodium Potassium Chloride Carbon Dioxide 17 L BUN 58 H Creatinine 1.8 H Glucose 172 H POC Glucose 193 H Calcium 7.7 L Phosphorus Magnesium AST Alkaline Phosphatase C-Reactive Protein 10.50 H Total Protein Albumin Lipase Vitamin B12 TSH Urine WBC (Auto) Urine Chloride Urine Total Protein Vancomycin Trough Crossmatch 10/13/16 10/13/16 10/13/16 17:55 18:32 19:41 WBC RBC Hgb Hct MCV RDW Plt Count Lymph % (Auto) [place] % (Auto) [place] # Seg Neutrophils % Seg Neuts % (Manual) Lymphocytes % (Manual) Monocytes % (Manual) Basophils % (Manual) Nucleated RBC % Seg Neutrophils # Seg Neutrophils # Man Lymphocytes # (Manual) Monocytes # (Manual) Eosinophils # (Manual) Basophils # (Manual) PT INR APTT Heparin Anti-Xa Level POC ABG pH POC ABG pCO2 30.6 L POC ABG pO2 218 H Sodium Potassium Chloride Carbon Dioxide BUN Creatinine Glucose POC Glucose 192 H 177 H Calcium Phosphorus Magnesium AST Alkaline Phosphatase C-Reactive Protein Total Protein Albumin Lipase Vitamin B12 TSH Urine WBC (Auto) Urine Chloride Urine Total Protein Vancomycin Trough Crossmatch 10/13/16 10/13/16 10/13/16 20:54 22:07 23:13 WBC RBC Hgb Hct MCV RDW Plt Count Lymph % (Auto) [place] % (Auto) [place] # Seg Neutrophils % Seg Neuts % (Manual) Lymphocytes % (Manual) Monocytes % (Manual) Basophils % (Manual) Nucleated RBC % Seg Neutrophils # Seg Neutrophils # Man Lymphocytes # (Manual) Monocytes # (Manual) Eosinophils # (Manual) Basophils # (Manual) PT INR APTT Heparin Anti-Xa Level POC ABG pH POC ABG pCO2 POC ABG pO2 Sodium Potassium Chloride Carbon Dioxide BUN Creatinine Glucose POC Glucose 178 H 160 H 168 H Calcium Phosphorus Magnesium AST Alkaline Phosphatase C-Reactive Protein Total Protein Albumin Lipase Vitamin B12 TSH Urine WBC (Auto) Urine Chloride Urine Total Protein Vancomycin Trough Crossmatch 10/13/16 10/13/16 10/14/16 23:25 Unknown 00:21 WBC RBC Hgb Hct MCV RDW Plt Count Lymph % (Auto) [place] % (Auto) [place] # Seg Neutrophils % Seg Neuts % (Manual) Lymphocytes % (Manual) Monocytes % (Manual) Basophils % (Manual) Nucleated RBC % Seg Neutrophils # Seg Neutrophils # Man Lymphocytes # (Manual) Monocytes # (Manual) Eosinophils # (Manual) Basophils # (Manual) PT INR APTT Heparin Anti-Xa Level POC ABG pH POC ABG pCO2 POC ABG pO2 Sodium 148 H Potassium Chloride 114.6 H Carbon Dioxide 17 L BUN 56 H Creatinine 1.6 H Glucose 151 H POC Glucose 171 H Calcium 7.8 L Phosphorus Magnesium AST Alkaline Phosphatase C-Reactive Protein Total Protein Albumin Lipase Vitamin B12 TSH Urine WBC (Auto) Urine Chloride 10.0 L Urine Total Protein < 4 L Vancomycin Trough Crossmatch 10/14/16 10/14/16 10/14/16 01:22 02:29 03:30 WBC RBC Hgb Hct MCV RDW Plt Count Lymph % (Auto) [place] % (Auto) [place] # Seg Neutrophils % Seg Neuts % (Manual) Lymphocytes % (Manual) Monocytes % (Manual) Basophils % (Manual) Nucleated RBC % Seg Neutrophils # Seg Neutrophils # Man Lymphocytes # (Manual) Monocytes # (Manual) Eosinophils # (Manual) Basophils # (Manual) PT INR APTT Heparin Anti-Xa Level POC ABG pH POC ABG pCO2 POC ABG pO2 Sodium Potassium Chloride Carbon Dioxide BUN Creatinine Glucose POC Glucose 144 H 136 H 143 H Calcium Phosphorus Magnesium AST Alkaline Phosphatase C-Reactive Protein Total Protein Albumin Lipase Vitamin B12 TSH Urine WBC (Auto) Urine Chloride Urine Total Protein Vancomycin Trough Crossmatch 10/14/16 10/14/16 10/14/16 04:28 05:16 05:44 WBC RBC Hgb Hct MCV RDW Plt Count Lymph % (Auto) [place] % (Auto) [place] # Seg Neutrophils % Seg Neuts % (Manual) Lymphocytes % (Manual) Monocytes % (Manual) Basophils % (Manual) Nucleated RBC % Seg Neutrophils # Seg Neutrophils # Man Lymphocytes # (Manual) Monocytes # (Manual) Eosinophils # (Manual) Basophils # (Manual) PT INR APTT Heparin Anti-Xa Level POC ABG pH POC ABG pCO2 28.2 L POC ABG pO2 125 H Sodium Potassium Chloride Carbon Dioxide BUN Creatinine Glucose POC Glucose 133 H 160 H Calcium Phosphorus Magnesium AST Alkaline Phosphatase C-Reactive Protein Total Protein Albumin Lipase Vitamin B12 TSH Urine WBC (Auto) Urine Chloride Urine Total Protein Vancomycin Trough Crossmatch 10/14/16 10/14/16 10/14/16 06:12 06:45 07:03 WBC RBC Hgb Hct MCV RDW Plt Count Lymph % (Auto) [place] % (Auto) [place] # Seg Neutrophils % Seg Neuts % (Manual) Lymphocytes % (Manual) Monocytes % (Manual) Basophils % (Manual) Nucleated RBC % Seg Neutrophils # Seg Neutrophils # Man Lymphocytes # (Manual) Monocytes # (Manual) Eosinophils # (Manual) Basophils # (Manual) PT INR APTT Heparin Anti-Xa Level POC ABG pH POC ABG pCO2 POC ABG pO2 Sodium 149 H Potassium Chloride 115.4 H Carbon Dioxide 17 L BUN 45 H Creatinine 1.5 H Glucose 139 H POC Glucose 149 H Calcium 7.4 L Phosphorus 1.0 L D Magnesium AST Alkaline Phosphatase C-Reactive Protein Total Protein Albumin Lipase Vitamin B12 TSH Urine WBC (Auto) Urine Chloride Urine Total Protein Vancomycin Trough Crossmatch 10/14/16 10/14/16 10/14/16 07:03 08:02 09:16 WBC RBC Hgb Hct MCV RDW Plt Count Lymph % (Auto) [place] % (Auto) [place] # Seg Neutrophils % Seg Neuts % (Manual) Lymphocytes % (Manual) Monocytes % (Manual) Basophils % (Manual) Nucleated RBC % Seg Neutrophils # Seg Neutrophils # Man Lymphocytes # (Manual) Monocytes # (Manual) Eosinophils # (Manual) Basophils # (Manual) PT INR APTT Heparin Anti-Xa Level POC ABG pH POC ABG pCO2 POC ABG pO2 Sodium Potassium Chloride Carbon Dioxide BUN Creatinine Glucose POC Glucose 156 H 158 H Calcium Phosphorus Magnesium AST Alkaline Phosphatase C-Reactive Protein Total Protein Albumin Lipase 738 H Vitamin B12 TSH Urine WBC (Auto) Urine Chloride Urine Total Protein Vancomycin Trough Crossmatch 10/14/16 10/14/16 10/14/16 10:26 11:03 11:57 WBC RBC Hgb Hct MCV RDW Plt Count Lymph % (Auto) [place] % (Auto) [place] # Seg Neutrophils % Seg Neuts % (Manual) Lymphocytes % (Manual) Monocytes % (Manual) Basophils % (Manual) Nucleated RBC % Seg Neutrophils # Seg Neutrophils # Man Lymphocytes # (Manual) Monocytes # (Manual) Eosinophils # (Manual) Basophils # (Manual) PT INR APTT Heparin Anti-Xa Level POC ABG pH 7.198 L POC ABG pCO2 47.5 H POC ABG pO2 Sodium Potassium Chloride Carbon Dioxide BUN Creatinine Glucose POC Glucose 174 H 189 H Calcium Phosphorus Magnesium AST Alkaline Phosphatase C-Reactive Protein Total Protein Albumin Lipase Vitamin B12 TSH Urine WBC (Auto) Urine Chloride Urine Total Protein Vancomycin Trough Crossmatch 10/14/16 10/14/16 10/14/16 12:02 12:02 13:11 WBC 13.4 H RBC 3.60 L Hgb Hct MCV 98 H D RDW 13.1 L Plt Count Lymph % (Auto) [place] % (Auto) [place] # Seg Neutrophils % Seg Neuts % (Manual) Lymphocytes % (Manual) Monocytes % (Manual) Basophils % (Manual) Nucleated RBC % Seg Neutrophils # Seg Neutrophils # Man Lymphocytes # (Manual) Monocytes # (Manual) Eosinophils # (Manual) Basophils # (Manual) PT INR APTT Heparin Anti-Xa Level POC ABG pH POC ABG pCO2 POC ABG pO2 Sodium Potassium Chloride 110.7 H Carbon Dioxide 19 L BUN 38 H Creatinine 1.4 H Glucose 182 H POC Glucose 173 H Calcium 7.5 L Phosphorus Magnesium AST Alkaline Phosphatase C-Reactive Protein Total Protein Albumin Lipase Vitamin B12 TSH Urine WBC (Auto) Urine Chloride Urine Total Protein Vancomycin Trough Crossmatch 10/14/16 10/14/16 10/14/16 14:24 15:31 16:36 WBC RBC Hgb Hct MCV RDW Plt Count Lymph % (Auto) [place] % (Auto) [place] # Seg Neutrophils % Seg Neuts % (Manual) Lymphocytes % (Manual) Monocytes % (Manual) Basophils % (Manual) Nucleated RBC % Seg Neutrophils # Seg Neutrophils # Man Lymphocytes # (Manual) Monocytes # (Manual) Eosinophils # (Manual) Basophils # (Manual) PT INR APTT Heparin Anti-Xa Level POC ABG pH POC ABG pCO2 POC ABG pO2 Sodium Potassium Chloride Carbon Dioxide BUN Creatinine Glucose POC Glucose 123 H 124 H 156 H Calcium Phosphorus Magnesium AST Alkaline Phosphatase C-Reactive Protein Total Protein Albumin Lipase Vitamin B12 TSH Urine WBC (Auto) Urine Chloride Urine Total Protein Vancomycin Trough Crossmatch 10/14/16 10/14/16 10/14/16 17:43 19:00 20:08 WBC RBC Hgb Hct MCV RDW Plt Count Lymph % (Auto) [place] % (Auto) [place] # Seg Neutrophils % Seg Neuts % (Manual) Lymphocytes % (Manual) Monocytes % (Manual) Basophils % (Manual) Nucleated RBC % Seg Neutrophils # Seg Neutrophils # Man Lymphocytes # (Manual) Monocytes # (Manual) Eosinophils # (Manual) Basophils # (Manual) PT INR APTT Heparin Anti-Xa Level POC ABG pH POC ABG pCO2 POC ABG pO2 Sodium Potassium Chloride Carbon Dioxide BUN Creatinine Glucose POC Glucose 154 H 123 H 138 H Calcium Phosphorus Magnesium AST Alkaline Phosphatase C-Reactive Protein Total Protein Albumin Lipase Vitamin B12 TSH Urine WBC (Auto) Urine Chloride Urine Total Protein Vancomycin Trough Crossmatch 10/14/16 10/14/16 10/14/16 21:17 22:25 23:37 WBC RBC Hgb Hct MCV RDW Plt Count Lymph % (Auto) [place] % (Auto) [place] # Seg Neutrophils % Seg Neuts % (Manual) Lymphocytes % (Manual) Monocytes % (Manual) Basophils % (Manual) Nucleated RBC % Seg Neutrophils # Seg Neutrophils # Man Lymphocytes # (Manual) Monocytes # (Manual) Eosinophils # (Manual) Basophils # (Manual) PT INR APTT Heparin Anti-Xa Level POC ABG pH POC ABG pCO2 POC ABG pO2 Sodium Potassium Chloride Carbon Dioxide BUN Creatinine Glucose POC Glucose 148 H 132 H 137 H Calcium Phosphorus Magnesium AST Alkaline Phosphatase C-Reactive Protein Total Protein Albumin Lipase Vitamin B12 TSH Urine WBC (Auto) Urine Chloride Urine Total Protein Vancomycin Trough Crossmatch 10/15/16 10/15/16 10/15/16 00:49 01:53 03:06 WBC RBC Hgb Hct MCV RDW Plt Count Lymph % (Auto) [place] % (Auto) [place] # Seg Neutrophils % Seg Neuts % (Manual) Lymphocytes % (Manual) Monocytes % (Manual) Basophils % (Manual) Nucleated RBC % Seg Neutrophils # Seg Neutrophils # Man Lymphocytes # (Manual) Monocytes # (Manual) Eosinophils # (Manual) Basophils # (Manual) PT INR APTT Heparin Anti-Xa Level POC ABG pH POC ABG pCO2 POC ABG pO2 Sodium Potassium Chloride Carbon Dioxide BUN Creatinine Glucose POC Glucose 132 H 134 H 134 H Calcium Phosphorus Magnesium AST Alkaline Phosphatase C-Reactive Protein Total Protein Albumin Lipase Vitamin B12 TSH Urine WBC (Auto) Urine Chloride Urine Total Protein Vancomycin Trough Crossmatch 10/15/16 10/15/16 10/15/16 04:40 04:46 06:21 WBC RBC Hgb Hct MCV RDW Plt Count Lymph % (Auto) [place] % (Auto) [place] # Seg Neutrophils % Seg Neuts % (Manual) Lymphocytes % (Manual) Monocytes % (Manual) Basophils % (Manual) Nucleated RBC % Seg Neutrophils # Seg Neutrophils # Man Lymphocytes # (Manual) Monocytes # (Manual) Eosinophils # (Manual) Basophils # (Manual) PT INR APTT Heparin Anti-Xa Level POC ABG pH POC ABG pCO2 30.7 L POC ABG pO2 108 H Sodium Potassium Chloride 109.0 H Carbon Dioxide 17 L BUN 27 H Creatinine Glucose 124 H POC Glucose 160 H Calcium 7.5 L Phosphorus Magnesium AST 79 H Alkaline Phosphatase C-Reactive Protein Total Protein 5.5 L Albumin 3.0 L Lipase Vitamin B12 TSH Urine WBC (Auto) Urine Chloride Urine Total Protein Vancomycin Trough Crossmatch 10/15/16 10/15/16 10/15/16 07:12 08:01 09:03 WBC RBC Hgb Hct MCV RDW Plt Count Lymph % (Auto) [place] % (Auto) [place] # Seg Neutrophils % Seg Neuts % (Manual) Lymphocytes % (Manual) Monocytes % (Manual) Basophils % (Manual) Nucleated RBC % Seg Neutrophils # Seg Neutrophils # Man Lymphocytes # (Manual) Monocytes # (Manual) Eosinophils # (Manual) Basophils # (Manual) PT INR APTT Heparin Anti-Xa Level POC ABG pH POC ABG pCO2 POC ABG pO2 Sodium Potassium Chloride Carbon Dioxide BUN Creatinine Glucose POC Glucose 179 H 187 H 165 H Calcium Phosphorus Magnesium AST Alkaline Phosphatase C-Reactive Protein Total Protein Albumin Lipase Vitamin B12 TSH Urine WBC (Auto) Urine Chloride Urine Total Protein Vancomycin Trough Crossmatch 10/15/16 10/15/16 10/15/16 10:06 10:06 10:07 WBC 12.1 H RBC 3.01 L Hgb 9.7 L Hct 29.6 L MCV 98 H RDW Plt Count 129 L Lymph % (Auto) [place] % (Auto) [place] # Seg Neutrophils % Seg Neuts % (Manual) Lymphocytes % (Manual) Monocytes % (Manual) Basophils % (Manual) Nucleated RBC % Seg Neutrophils # Seg Neutrophils # Man Lymphocytes # (Manual) Monocytes # (Manual) Eosinophils # (Manual) Basophils # (Manual) PT INR APTT Heparin Anti-Xa Level POC ABG pH POC ABG pCO2 POC ABG pO2 Sodium Potassium 3.2 L D Chloride 109.6 H Carbon Dioxide 18 L BUN 22 H Creatinine Glucose 127 H POC Glucose 147 H Calcium 7.0 L Phosphorus Magnesium AST Alkaline Phosphatase C-Reactive Protein Total Protein Albumin Lipase Vitamin B12 TSH Urine WBC (Auto) Urine Chloride Urine Total Protein Vancomycin Trough Crossmatch 10/15/16 10/15/16 10/15/16 11:05 11:06 11:57 WBC RBC Hgb Hct MCV RDW Plt Count Lymph % (Auto) [place] % (Auto) [place] # Seg Neutrophils % Seg Neuts % (Manual) Lymphocytes % (Manual) Monocytes % (Manual) Basophils % (Manual) Nucleated RBC % Seg Neutrophils # Seg Neutrophils # Man Lymphocytes # (Manual) Monocytes # (Manual) Eosinophils # (Manual) Basophils # (Manual) PT INR APTT Heparin Anti-Xa Level POC ABG pH 7.305 L POC ABG pCO2 POC ABG pO2 Sodium Potassium Chloride Carbon Dioxide BUN Creatinine Glucose POC Glucose 145 H Calcium Phosphorus Magnesium AST Alkaline Phosphatase C-Reactive Protein Total Protein Albumin Lipase Vitamin B12 TSH Urine WBC (Auto) 7.0 H Urine Chloride Urine Total Protein Vancomycin Trough Crossmatch 10/15/16 10/15/16 10/15/16 12:04 13:59 15:24 WBC RBC Hgb Hct MCV RDW Plt Count Lymph % (Auto) [place] % (Auto) [place] # Seg Neutrophils % Seg Neuts % (Manual) Lymphocytes % (Manual) Monocytes % (Manual) Basophils % (Manual) Nucleated RBC % Seg Neutrophils # Seg Neutrophils # Man Lymphocytes # (Manual) Monocytes # (Manual) Eosinophils # (Manual) Basophils # (Manual) PT INR APTT Heparin Anti-Xa Level POC ABG pH POC ABG pCO2 POC ABG pO2 Sodium Potassium Chloride Carbon Dioxide BUN Creatinine Glucose POC Glucose 123 H 147 H 153 H Calcium Phosphorus Magnesium AST Alkaline Phosphatase C-Reactive Protein Total Protein Albumin Lipase Vitamin B12 TSH Urine WBC (Auto) Urine Chloride Urine Total Protein Vancomycin Trough Crossmatch 10/15/16 10/15/16 10/15/16 16:30 17:34 18:30 WBC RBC Hgb Hct MCV RDW Plt Count Lymph % (Auto) [place] % (Auto) [place] # Seg Neutrophils % Seg Neuts % (Manual) Lymphocytes % (Manual) Monocytes % (Manual) Basophils % (Manual) Nucleated RBC % Seg Neutrophils # Seg Neutrophils # Man Lymphocytes # (Manual) Monocytes # (Manual) Eosinophils # (Manual) Basophils # (Manual) PT INR APTT Heparin Anti-Xa Level POC ABG pH POC ABG pCO2 POC ABG pO2 Sodium Potassium Chloride Carbon Dioxide BUN Creatinine Glucose POC Glucose 223 H 236 H 164 H Calcium Phosphorus Magnesium AST Alkaline Phosphatase C-Reactive Protein Total Protein Albumin Lipase Vitamin B12 TSH Urine WBC (Auto) Urine Chloride Urine Total Protein Vancomycin Trough Crossmatch 10/15/16 10/15/16 10/15/16 19:14 20:31 21:23 WBC RBC Hgb Hct MCV RDW Plt Count Lymph % (Auto) [place] % (Auto) [place] # Seg Neutrophils % Seg Neuts % (Manual) Lymphocytes % (Manual) Monocytes % (Manual) Basophils % (Manual) Nucleated RBC % Seg Neutrophils # Seg Neutrophils # Man Lymphocytes # (Manual) Monocytes # (Manual) Eosinophils # (Manual) Basophils # (Manual) PT INR APTT Heparin Anti-Xa Level POC ABG pH POC ABG pCO2 POC ABG pO2 Sodium Potassium Chloride Carbon Dioxide BUN Creatinine Glucose POC Glucose 138 H 158 H 158 H Calcium Phosphorus Magnesium AST Alkaline Phosphatase C-Reactive Protein Total Protein Albumin Lipase Vitamin B12 TSH Urine WBC (Auto) Urine Chloride Urine Total Protein Vancomycin Trough Crossmatch 10/15/16 10/15/16 10/16/16 22:04 22:57 00:11 WBC RBC Hgb Hct MCV RDW Plt Count Lymph % (Auto) [place] % (Auto) [place] # Seg Neutrophils % Seg Neuts % (Manual) Lymphocytes % (Manual) Monocytes % (Manual) Basophils % (Manual) Nucleated RBC % Seg Neutrophils # Seg Neutrophils # Man Lymphocytes # (Manual) Monocytes # (Manual) Eosinophils # (Manual) Basophils # (Manual) PT INR APTT Heparin Anti-Xa Level POC ABG pH POC ABG pCO2 POC ABG pO2 Sodium Potassium Chloride Carbon Dioxide BUN Creatinine Glucose POC Glucose 168 H 213 H 166 H Calcium Phosphorus Magnesium AST Alkaline Phosphatase C-Reactive Protein Total Protein Albumin Lipase Vitamin B12 TSH Urine WBC (Auto) Urine Chloride Urine Total Protein Vancomycin Trough Crossmatch 10/16/16 10/16/16 10/16/16 01:16 02:32 03:38 WBC RBC Hgb Hct MCV RDW Plt Count Lymph % (Auto) [place] % (Auto) [place] # Seg Neutrophils % Seg Neuts % (Manual) Lymphocytes % (Manual) Monocytes % (Manual) Basophils % (Manual) Nucleated RBC % Seg Neutrophils # Seg Neutrophils # Man Lymphocytes # (Manual) Monocytes # (Manual) Eosinophils # (Manual) Basophils # (Manual) PT INR APTT Heparin Anti-Xa Level POC ABG pH POC ABG pCO2 POC ABG pO2 Sodium Potassium Chloride Carbon Dioxide BUN Creatinine Glucose POC Glucose 171 H 164 H 147 H Calcium Phosphorus Magnesium AST Alkaline Phosphatase C-Reactive Protein Total Protein Albumin Lipase Vitamin B12 TSH Urine WBC (Auto) Urine Chloride Urine Total Protein Vancomycin Trough Crossmatch 10/16/16 10/16/16 10/16/16 04:14 04:14 04:49 WBC RBC Hgb Hct MCV RDW Plt Count Lymph % (Auto) [place] % (Auto) [place] # Seg Neutrophils % Seg Neuts % (Manual) Lymphocytes % (Manual) Monocytes % (Manual) Basophils % (Manual) Nucleated RBC % Seg Neutrophils # Seg Neutrophils # Man Lymphocytes # (Manual) Monocytes # (Manual) Eosinophils # (Manual) Basophils # (Manual) PT INR APTT Heparin Anti-Xa Level POC ABG pH POC ABG pCO2 POC ABG pO2 Sodium 147 H Potassium Chloride 110.9 H Carbon Dioxide 19 L BUN Creatinine Glucose 139 H POC Glucose 144 H Calcium 7.3 L Phosphorus 2.3 L Magnesium AST Alkaline Phosphatase C-Reactive Protein Total Protein Albumin Lipase 143 H Vitamin B12 TSH Urine WBC (Auto) Urine Chloride Urine Total Protein Vancomycin Trough Crossmatch 10/16/16 10/16/16 10/16/16 05:03 05:41 05:58 WBC 16.5 H RBC 3.36 L Hgb Hct MCV 98 H RDW 13.1 L Plt Count Lymph % (Auto) 8.5 L [place] % (Auto) 7.6 H [place] # 1.3 H Seg Neutrophils % 83.3 H Seg Neuts % (Manual) Lymphocytes % (Manual) Monocytes % (Manual) Basophils % (Manual) Nucleated RBC % Seg Neutrophils # 13.8 H Seg Neutrophils # Man Lymphocytes # (Manual) Monocytes # (Manual) Eosinophils # (Manual) Basophils # (Manual) PT INR APTT Heparin Anti-Xa Level POC ABG pH POC ABG pCO2 30.7 L POC ABG pO2 128 H Sodium Potassium Chloride Carbon Dioxide BUN Creatinine Glucose POC Glucose 131 H Calcium Phosphorus Magnesium AST Alkaline Phosphatase C-Reactive Protein Total Protein Albumin Lipase Vitamin B12 TSH Urine WBC (Auto) Urine Chloride Urine Total Protein Vancomycin Trough Crossmatch 10/16/16 10/16/16 10/16/16 06:32 09:27 09:35 WBC RBC Hgb Hct MCV RDW Plt Count Lymph % (Auto) [place] % (Auto) [place] # Seg Neutrophils % Seg Neuts % (Manual) Lymphocytes % (Manual) Monocytes % (Manual) Basophils % (Manual) Nucleated RBC % Seg Neutrophils # Seg Neutrophils # Man Lymphocytes # (Manual) Monocytes # (Manual) Eosinophils # (Manual) Basophils # (Manual) PT INR APTT Heparin Anti-Xa Level POC ABG pH POC ABG pCO2 32.8 L POC ABG pO2 137 H Sodium Potassium Chloride Carbon Dioxide BUN Creatinine Glucose POC Glucose 121 H 150 H Calcium Phosphorus Magnesium AST Alkaline Phosphatase C-Reactive Protein Total Protein Albumin Lipase Vitamin B12 TSH Urine WBC (Auto) Urine Chloride Urine Total Protein Vancomycin Trough Crossmatch 10/16/16 10/16/16 10/16/16 10:47 13:27 14:24 WBC RBC Hgb Hct MCV RDW Plt Count Lymph % (Auto) [place] % (Auto) [place] # Seg Neutrophils % Seg Neuts % (Manual) Lymphocytes % (Manual) Monocytes % (Manual) Basophils % (Manual) Nucleated RBC % Seg Neutrophils # Seg Neutrophils # Man Lymphocytes # (Manual) Monocytes # (Manual) Eosinophils # (Manual) Basophils # (Manual) PT INR APTT Heparin Anti-Xa Level POC ABG pH POC ABG pCO2 POC ABG pO2 Sodium Potassium Chloride Carbon Dioxide BUN Creatinine Glucose POC Glucose 184 H 171 H 174 H Calcium Phosphorus Magnesium AST Alkaline Phosphatase C-Reactive Protein Total Protein Albumin Lipase Vitamin B12 TSH Urine WBC (Auto) Urine Chloride Urine Total Protein Vancomycin Trough Crossmatch 10/16/16 10/16/16 10/16/16 15:48 16:26 18:17 WBC RBC Hgb Hct MCV RDW Plt Count Lymph % (Auto) [place] % (Auto) [place] # Seg Neutrophils % Seg Neuts % (Manual) Lymphocytes % (Manual) Monocytes % (Manual) Basophils % (Manual) Nucleated RBC % Seg Neutrophils # Seg Neutrophils # Man Lymphocytes # (Manual) Monocytes # (Manual) Eosinophils # (Manual) Basophils # (Manual) PT INR APTT Heparin Anti-Xa Level POC ABG pH POC ABG pCO2 POC ABG pO2 Sodium Potassium Chloride Carbon Dioxide BUN Creatinine Glucose POC Glucose 205 H 204 H 234 H Calcium Phosphorus Magnesium AST Alkaline Phosphatase C-Reactive Protein Total Protein Albumin Lipase Vitamin B12 TSH Urine WBC (Auto) Urine Chloride Urine Total Protein Vancomycin Trough Crossmatch 10/16/16 10/16/16 10/16/16 19:40 20:33 21:36 WBC RBC Hgb Hct MCV RDW Plt Count Lymph % (Auto) [place] % (Auto) [place] # Seg Neutrophils % Seg Neuts % (Manual) Lymphocytes % (Manual) Monocytes % (Manual) Basophils % (Manual) Nucleated RBC % Seg Neutrophils # Seg Neutrophils # Man Lymphocytes # (Manual) Monocytes # (Manual) Eosinophils # (Manual) Basophils # (Manual) PT INR APTT Heparin Anti-Xa Level POC ABG pH POC ABG pCO2 POC ABG pO2 Sodium Potassium Chloride Carbon Dioxide BUN Creatinine Glucose POC Glucose 167 H 153 H 158 H Calcium Phosphorus Magnesium AST Alkaline Phosphatase C-Reactive Protein Total Protein Albumin Lipase Vitamin B12 TSH Urine WBC (Auto) Urine Chloride Urine Total Protein Vancomycin Trough Crossmatch 10/16/16 10/16/16 10/17/16 22:54 23:48 00:47 WBC RBC Hgb Hct MCV RDW Plt Count Lymph % (Auto) [place] % (Auto) [place] # Seg Neutrophils % Seg Neuts % (Manual) Lymphocytes % (Manual) Monocytes % (Manual) Basophils % (Manual) Nucleated RBC % Seg Neutrophils # Seg Neutrophils # Man Lymphocytes # (Manual) Monocytes # (Manual) Eosinophils # (Manual) Basophils # (Manual) PT INR APTT Heparin Anti-Xa Level POC ABG pH POC ABG pCO2 POC ABG pO2 Sodium Potassium Chloride Carbon Dioxide BUN Creatinine Glucose POC Glucose 180 H 207 H 196 H Calcium Phosphorus Magnesium AST Alkaline Phosphatase C-Reactive Protein Total Protein Albumin Lipase Vitamin B12 TSH Urine WBC (Auto) Urine Chloride Urine Total Protein Vancomycin Trough Crossmatch 10/17/16 10/17/16 10/17/16 01:57 02:49 03:50 WBC RBC Hgb Hct MCV RDW Plt Count Lymph % (Auto) [place] % (Auto) [place] # Seg Neutrophils % Seg Neuts % (Manual) Lymphocytes % (Manual) Monocytes % (Manual) Basophils % (Manual) Nucleated RBC % Seg Neutrophils # Seg Neutrophils # Man Lymphocytes # (Manual) Monocytes # (Manual) Eosinophils # (Manual) Basophils # (Manual) PT INR APTT Heparin Anti-Xa Level POC ABG pH POC ABG pCO2 POC ABG pO2 Sodium Potassium Chloride Carbon Dioxide BUN Creatinine Glucose POC Glucose 180 H 151 H 106 H Calcium Phosphorus Magnesium AST Alkaline Phosphatase C-Reactive Protein Total Protein Albumin Lipase Vitamin B12 TSH Urine WBC (Auto) Urine Chloride Urine Total Protein Vancomycin Trough Crossmatch 10/17/16 10/17/16 10/17/16 04:59 06:03 06:35 WBC RBC Hgb Hct MCV RDW Plt Count Lymph % (Auto) [place] % (Auto) [place] # Seg Neutrophils % Seg Neuts % (Manual) Lymphocytes % (Manual) Monocytes % (Manual) Basophils % (Manual) Nucleated RBC % Seg Neutrophils # Seg Neutrophils # Man Lymphocytes # (Manual) Monocytes # (Manual) Eosinophils # (Manual) Basophils # (Manual) PT INR APTT Heparin Anti-Xa Level POC ABG pH 7.453 H POC ABG pCO2 30.1 L POC ABG pO2 111 H Sodium Potassium Chloride Carbon Dioxide BUN Creatinine Glucose POC Glucose 145 H 157 H Calcium Phosphorus Magnesium AST Alkaline Phosphatase C-Reactive Protein Total Protein Albumin Lipase Vitamin B12 TSH Urine WBC (Auto) Urine Chloride Urine Total Protein Vancomycin Trough Crossmatch 10/17/16 10/17/16 10/17/16 07:08 07:11 08:01 WBC RBC Hgb Hct MCV RDW Plt Count Lymph % (Auto) [place] % (Auto) [place] # Seg Neutrophils % Seg Neuts % (Manual) Lymphocytes % (Manual) Monocytes % (Manual) Basophils % (Manual) Nucleated RBC % Seg Neutrophils # Seg Neutrophils # Man Lymphocytes # (Manual) Monocytes # (Manual) Eosinophils # (Manual) Basophils # (Manual) PT INR APTT Heparin Anti-Xa Level POC ABG pH POC ABG pCO2 POC ABG pO2 Sodium 147 H Potassium Chloride 113.8 H Carbon Dioxide 19 L BUN Creatinine Glucose 136 H POC Glucose 136 H 152 H Calcium 7.7 L Phosphorus Magnesium AST Alkaline Phosphatase C-Reactive Protein Total Protein Albumin Lipase Vitamin B12 TSH Urine WBC (Auto) Urine Chloride Urine Total Protein Vancomycin Trough Crossmatch 10/17/16 10/17/16 10/17/16 08:23 09:17 09:53 WBC 18.1 H RBC 3.01 L Hgb 9.7 L Hct 29.4 L MCV 98 H RDW Plt Count 116 L Lymph % (Auto) [place] % (Auto) [place] # Seg Neutrophils % Seg Neuts % (Manual) 77.0 H Lymphocytes % (Manual) 4.0 L Monocytes % (Manual) 12.0 H Basophils % (Manual) Nucleated RBC % Seg Neutrophils # Seg Neutrophils # Man 13.9 H Lymphocytes # (Manual) 0.7 L Monocytes # (Manual) 2.2 H Eosinophils # (Manual) Basophils # (Manual) PT INR APTT Heparin Anti-Xa Level POC ABG pH POC ABG pCO2 POC ABG pO2 Sodium Potassium Chloride Carbon Dioxide BUN Creatinine Glucose POC Glucose 148 H 137 H Calcium Phosphorus Magnesium AST Alkaline Phosphatase C-Reactive Protein Total Protein Albumin Lipase Vitamin B12 TSH Urine WBC (Auto) Urine Chloride Urine Total Protein Vancomycin Trough Crossmatch 10/17/16 10/17/16 10/17/16 11:43 16:07 17:42 WBC RBC Hgb Hct MCV RDW Plt Count Lymph % (Auto) [place] % (Auto) [place] # Seg Neutrophils % Seg Neuts % (Manual) Lymphocytes % (Manual) Monocytes % (Manual) Basophils % (Manual) Nucleated RBC % Seg Neutrophils # Seg Neutrophils # Man Lymphocytes # (Manual) Monocytes # (Manual) Eosinophils # (Manual) Basophils # (Manual) PT 16.4 H INR 1.33 H APTT 38.8 H Heparin Anti-Xa Level POC ABG pH POC ABG pCO2 POC ABG pO2 Sodium Potassium Chloride Carbon Dioxide BUN Creatinine Glucose POC Glucose 179 H 153 H Calcium Phosphorus Magnesium AST Alkaline Phosphatase C-Reactive Protein Total Protein Albumin Lipase Vitamin B12 TSH Urine WBC (Auto) Urine Chloride Urine Total Protein Vancomycin Trough Crossmatch 10/17/16 10/18/16 10/18/16 22:54 04:37 05:39 WBC RBC Hgb Hct MCV RDW Plt Count Lymph % (Auto) [place] % (Auto) [place] # Seg Neutrophils % Seg Neuts % (Manual) Lymphocytes % (Manual) Monocytes % (Manual) Basophils % (Manual) Nucleated RBC % Seg Neutrophils # Seg Neutrophils # Man Lymphocytes # (Manual) Monocytes # (Manual) Eosinophils # (Manual) Basophils # (Manual) PT INR APTT Heparin Anti-Xa Level 0.27 L POC ABG pH 7.454 H POC ABG pCO2 30.8 L POC ABG pO2 115 H Sodium Potassium Chloride Carbon Dioxide BUN Creatinine Glucose POC Glucose 69 L Calcium Phosphorus Magnesium AST Alkaline Phosphatase C-Reactive Protein Total Protein Albumin Lipase Vitamin B12 TSH Urine WBC (Auto) Urine Chloride Urine Total Protein Vancomycin Trough Crossmatch 10/18/16 10/18/16 10/18/16 06:46 06:46 06:46 WBC 20.5 H RBC 2.62 L Hgb 8.4 L Hct 26.0 L MCV 100 H RDW Plt Count Lymph % (Auto) [place] % (Auto) [place] # Seg Neutrophils % Seg Neuts % (Manual) 75.0 H Lymphocytes % (Manual) 9.0 L Monocytes % (Manual) 14.0 H Basophils % (Manual) Nucleated RBC % Seg Neutrophils # Seg Neutrophils # Man 15.4 H Lymphocytes # (Manual) Monocytes # (Manual) 2.9 H Eosinophils # (Manual) Basophils # (Manual) PT INR APTT Heparin Anti-Xa Level POC ABG pH POC ABG pCO2 POC ABG pO2 Sodium Potassium Chloride 110.6 H Carbon Dioxide BUN Creatinine 1.3 H Glucose 153 H POC Glucose Calcium 8.0 L Phosphorus Magnesium 1.6 L AST Alkaline Phosphatase C-Reactive Protein Total Protein Albumin Lipase Vitamin B12 TSH Urine WBC (Auto) Urine Chloride Urine Total Protein Vancomycin Trough Crossmatch 10/18/16 10/18/16 10/18/16 07:30 11:37 17:51 WBC RBC Hgb Hct MCV RDW Plt Count Lymph % (Auto) [place] % (Auto) [place] # Seg Neutrophils % Seg Neuts % (Manual) Lymphocytes % (Manual) Monocytes % (Manual) Basophils % (Manual) Nucleated RBC % Seg Neutrophils # Seg Neutrophils # Man Lymphocytes # (Manual) Monocytes # (Manual) Eosinophils # (Manual) Basophils # (Manual) PT INR APTT Heparin Anti-Xa Level POC ABG pH POC ABG pCO2 POC ABG pO2 Sodium Potassium Chloride Carbon Dioxide BUN Creatinine Glucose POC Glucose 162 H 156 H 164 H Calcium Phosphorus Magnesium AST Alkaline Phosphatase C-Reactive Protein Total Protein Albumin Lipase Vitamin B12 TSH Urine WBC (Auto) Urine Chloride Urine Total Protein Vancomycin Trough Crossmatch 10/18/16 10/19/16 10/19/16 23:44 03:59 05:13 WBC 18.2 H RBC 2.76 L Hgb 9.0 L Hct 27.7 L MCV 100 H RDW Plt Count Lymph % (Auto) [place] % (Auto) [place] # Seg Neutrophils % Seg Neuts % (Manual) 76.0 H Lymphocytes % (Manual) 10.0 L Monocytes % (Manual) Basophils % (Manual) Nucleated RBC % Seg Neutrophils # Seg Neutrophils # Man 13.8 H Lymphocytes # (Manual) Monocytes # (Manual) Eosinophils # (Manual) Basophils # (Manual) PT INR APTT Heparin Anti-Xa Level POC ABG pH POC ABG pCO2 32.2 L POC ABG pO2 128 H Sodium Potassium Chloride Carbon Dioxide BUN Creatinine Glucose POC Glucose 278 H Calcium Phosphorus Magnesium AST Alkaline Phosphatase C-Reactive Protein Total Protein Albumin Lipase Vitamin B12 TSH Urine WBC (Auto) Urine Chloride Urine Total Protein Vancomycin Trough Crossmatch 10/19/16 10/19/16 10/19/16 06:01 06:30 12:20 WBC RBC Hgb Hct MCV RDW Plt Count Lymph % (Auto) [place] % (Auto) [place] # Seg Neutrophils % Seg Neuts % (Manual) Lymphocytes % (Manual) Monocytes % (Manual) Basophils % (Manual) Nucleated RBC % Seg Neutrophils # Seg Neutrophils # Man Lymphocytes # (Manual) Monocytes # (Manual) Eosinophils # (Manual) Basophils # (Manual) PT INR APTT Heparin Anti-Xa Level POC ABG pH POC ABG pCO2 POC ABG pO2 Sodium Potassium Chloride Carbon Dioxide 18 L BUN Creatinine 1.3 H Glucose 262 H POC Glucose 261 H 349 H Calcium 7.7 L Phosphorus 4.8 H D Magnesium AST Alkaline Phosphatase C-Reactive Protein Total Protein Albumin Lipase Vitamin B12 TSH Urine WBC (Auto) Urine Chloride Urine Total Protein Vancomycin Trough Crossmatch 10/19/16 10/20/16 10/20/16 16:48 00:17 05:20 WBC 22.5 H RBC 2.80 L Hgb 8.9 L Hct 28.3 L MCV 101 H RDW Plt Count Lymph % (Auto) [place] % (Auto) [place] # Seg Neutrophils % Seg Neuts % (Manual) Lymphocytes % (Manual) 10.0 L Monocytes % (Manual) Basophils % (Manual) Nucleated RBC % Seg Neutrophils # Seg Neutrophils # Man 13.3 H Lymphocytes # (Manual) Monocytes # (Manual) 1.1 H Eosinophils # (Manual) 0.7 H Basophils # (Manual) PT INR APTT Heparin Anti-Xa Level POC ABG pH POC ABG pCO2 POC ABG pO2 Sodium Potassium Chloride Carbon Dioxide BUN Creatinine Glucose POC Glucose 248 H 346 H Calcium Phosphorus Magnesium AST Alkaline Phosphatase C-Reactive Protein Total Protein Albumin Lipase Vitamin B12 TSH Urine WBC (Auto) Urine Chloride Urine Total Protein Vancomycin Trough Crossmatch 10/20/16 10/20/16 10/20/16 05:20 05:20 06:05 WBC RBC Hgb Hct MCV RDW Plt Count Lymph % (Auto) [place] % (Auto) [place] # Seg Neutrophils % Seg Neuts % (Manual) Lymphocytes % (Manual) Monocytes % (Manual) Basophils % (Manual) Nucleated RBC % Seg Neutrophils # Seg Neutrophils # Man Lymphocytes # (Manual) Monocytes # (Manual) Eosinophils # (Manual) Basophils # (Manual) PT INR APTT Heparin Anti-Xa Level 0.20 L POC ABG pH POC ABG pCO2 POC ABG pO2 Sodium Potassium Chloride Carbon Dioxide BUN 20 H Creatinine Glucose 374 H POC Glucose 337 H Calcium 8.3 L Phosphorus Magnesium AST Alkaline Phosphatase C-Reactive Protein Total Protein Albumin Lipase Vitamin B12 TSH Urine WBC (Auto) Urine Chloride Urine Total Protein Vancomycin Trough Crossmatch 10/20/16 10/20/16 10/20/16 11:49 13:59 17:56 WBC RBC Hgb Hct MCV RDW Plt Count Lymph % (Auto) [place] % (Auto) [place] # Seg Neutrophils % Seg Neuts % (Manual) Lymphocytes % (Manual) Monocytes % (Manual) Basophils % (Manual) Nucleated RBC % Seg Neutrophils # Seg Neutrophils # Man Lymphocytes # (Manual) Monocytes # (Manual) Eosinophils # (Manual) Basophils # (Manual) PT INR APTT Heparin Anti-Xa Level 2.00 H POC ABG pH POC ABG pCO2 POC ABG pO2 Sodium Potassium Chloride Carbon Dioxide BUN Creatinine Glucose POC Glucose 305 H 362 H Calcium Phosphorus Magnesium AST Alkaline Phosphatase C-Reactive Protein Total Protein Albumin Lipase Vitamin B12 TSH Urine WBC (Auto) Urine Chloride Urine Total Protein Vancomycin Trough Crossmatch 10/20/16 10/21/16 10/21/16 23:52 05:00 05:49 WBC 22.9 H RBC 2.49 L Hgb 7.7 L Hct 25.6 L MCV 103 H RDW Plt Count Lymph % (Auto) [place] % (Auto) [place] # Seg Neutrophils % Seg Neuts % (Manual) 94.0 H Lymphocytes % (Manual) 1.0 L Monocytes % (Manual) Basophils % (Manual) Nucleated RBC % Seg Neutrophils # Seg Neutrophils # Man 21.5 H Lymphocytes # (Manual) 0.2 L Monocytes # (Manual) 1.1 H Eosinophils # (Manual) Basophils # (Manual) PT INR APTT Heparin Anti-Xa Level POC ABG pH POC ABG pCO2 POC ABG pO2 Sodium Potassium Chloride Carbon Dioxide BUN Creatinine Glucose POC Glucose 252 H 180 H Calcium Phosphorus Magnesium AST Alkaline Phosphatase C-Reactive Protein Total Protein Albumin Lipase Vitamin B12 TSH Urine WBC (Auto) Urine Chloride Urine Total Protein Vancomycin Trough Crossmatch 10/21/16 10/21/16 10/21/16 11:47 11:49 14:10 WBC RBC Hgb Hct MCV RDW Plt Count Lymph % (Auto) [place] % (Auto) [place] # Seg Neutrophils % Seg Neuts % (Manual) Lymphocytes % (Manual) Monocytes % (Manual) Basophils % (Manual) Nucleated RBC % Seg Neutrophils # Seg Neutrophils # Man Lymphocytes # (Manual) Monocytes # (Manual) Eosinophils # (Manual) Basophils # (Manual) PT INR APTT Heparin Anti-Xa Level POC ABG pH POC ABG pCO2 POC ABG pO2 Sodium Potassium Chloride Carbon Dioxide BUN Creatinine Glucose POC Glucose 50 L 56 L 140 H Calcium Phosphorus Magnesium AST Alkaline Phosphatase C-Reactive Protein Total Protein Albumin Lipase Vitamin B12 TSH Urine WBC (Auto) Urine Chloride Urine Total Protein Vancomycin Trough Crossmatch 10/21/16 10/21/16 10/22/16 18:24 Unknown 00:07 WBC RBC Hgb Hct MCV RDW Plt Count Lymph % (Auto) [place] % (Auto) [place] # Seg Neutrophils % Seg Neuts % (Manual) Lymphocytes % (Manual) Monocytes % (Manual) Basophils % (Manual) Nucleated RBC % Seg Neutrophils # Seg Neutrophils # Man Lymphocytes # (Manual) Monocytes # (Manual) Eosinophils # (Manual) Basophils # (Manual) PT INR APTT Heparin Anti-Xa Level POC ABG pH POC ABG pCO2 POC ABG pO2 Sodium 150 H Potassium 3.1 L Chloride 112.4 H Carbon Dioxide BUN 25 H Creatinine 1.4 H Glucose POC Glucose 175 H 218 H Calcium 8.0 L Phosphorus Magnesium AST Alkaline Phosphatase C-Reactive Protein Total Protein Albumin Lipase Vitamin B12 TSH Urine WBC (Auto) Urine Chloride Urine Total Protein Vancomycin Trough Crossmatch 10/22/16 10/22/16 10/22/16 04:20 04:20 10:25 WBC 20.8 H RBC 2.37 L Hgb 7.5 L Hct 23.9 L MCV 101 H RDW Plt Count Lymph % (Auto) [place] % (Auto) [place] # Seg Neutrophils % Seg Neuts % (Manual) 89.0 H Lymphocytes % (Manual) 7.0 L Monocytes % (Manual) Basophils % (Manual) Nucleated RBC % Seg Neutrophils # Seg Neutrophils # Man 18.5 H Lymphocytes # (Manual) Monocytes # (Manual) Eosinophils # (Manual) Basophils # (Manual) 0.2 H PT INR APTT Heparin Anti-Xa Level POC ABG pH POC ABG pCO2 POC ABG pO2 Sodium 148 H Potassium 2.9 L* Chloride 109.4 H Carbon Dioxide BUN 26 H Creatinine Glucose 140 H POC Glucose Calcium 7.5 L Phosphorus Magnesium AST Alkaline Phosphatase C-Reactive Protein Total Protein Albumin Lipase Vitamin B12 976.8 H TSH Urine WBC (Auto) Urine Chloride Urine Total Protein Vancomycin Trough Crossmatch 10/22/16 10/22/16 10/22/16 10:25 14:50 18:16 WBC RBC Hgb Hct MCV RDW Plt Count Lymph % (Auto) [place] % (Auto) [place] # Seg Neutrophils % Seg Neuts % (Manual) Lymphocytes % (Manual) Monocytes % (Manual) Basophils % (Manual) Nucleated RBC % Seg Neutrophils # Seg Neutrophils # Man Lymphocytes # (Manual) Monocytes # (Manual) Eosinophils # (Manual) Basophils # (Manual) PT INR APTT Heparin Anti-Xa Level POC ABG pH POC ABG pCO2 POC ABG pO2 Sodium Potassium Chloride Carbon Dioxide BUN Creatinine Glucose POC Glucose 193 H Calcium Phosphorus Magnesium AST Alkaline Phosphatase C-Reactive Protein Total Protein Albumin Lipase Vitamin B12 TSH 0.143 L 0.162 L Urine WBC (Auto) Urine Chloride Urine Total Protein Vancomycin Trough Crossmatch 10/22/16 10/22/16 10/22/16 20:00 20:00 20:00 WBC 24.1 H RBC 2.58 L Hgb 8.2 L Hct 26.4 L MCV 102 H RDW Plt Count Lymph % (Auto) [place] % (Auto) [place] # Seg Neutrophils % Seg Neuts % (Manual) 74.0 H Lymphocytes % (Manual) 7.0 L Monocytes % (Manual) Basophils % (Manual) Nucleated RBC % Seg Neutrophils # Seg Neutrophils # Man 17.8 H Lymphocytes # (Manual) Monocytes # (Manual) Eosinophils # (Manual) Basophils # (Manual) PT INR APTT Heparin Anti-Xa Level 1.92 H POC ABG pH POC ABG pCO2 POC ABG pO2 Sodium Potassium Chloride Carbon Dioxide BUN Creatinine Glucose POC Glucose Calcium Phosphorus Magnesium AST Alkaline Phosphatase C-Reactive Protein Total Protein Albumin Lipase Vitamin B12 TSH Urine WBC (Auto) Urine Chloride Urine Total Protein Vancomycin Trough Crossmatch See Detail 10/23/16 10/23/16 10/23/16 00:21 06:09 12:07 WBC RBC Hgb Hct MCV RDW Plt Count Lymph % (Auto) [place] % (Auto) [place] # Seg Neutrophils % Seg Neuts % (Manual) Lymphocytes % (Manual) Monocytes % (Manual) Basophils % (Manual) Nucleated RBC % Seg Neutrophils # Seg Neutrophils # Man Lymphocytes # (Manual) Monocytes # (Manual) Eosinophils # (Manual) Basophils # (Manual) PT INR APTT Heparin Anti-Xa Level POC ABG pH POC ABG pCO2 POC ABG pO2 Sodium Potassium Chloride Carbon Dioxide BUN Creatinine Glucose POC Glucose 283 H 241 H 340 H Calcium Phosphorus Magnesium AST Alkaline Phosphatase C-Reactive Protein Total Protein Albumin Lipase Vitamin B12 TSH Urine WBC (Auto) Urine Chloride Urine Total Protein Vancomycin Trough Crossmatch 10/23/16 10/23/16 10/23/16 14:01 16:00 17:59 WBC RBC Hgb Hct MCV RDW Plt Count Lymph % (Auto) [place] % (Auto) [place] # Seg Neutrophils % Seg Neuts % (Manual) Lymphocytes % (Manual) Monocytes % (Manual) Basophils % (Manual) Nucleated RBC % Seg Neutrophils # Seg Neutrophils # Man Lymphocytes # (Manual) Monocytes # (Manual) Eosinophils # (Manual) Basophils # (Manual) PT INR APTT Heparin Anti-Xa Level 0.19 L POC ABG pH POC ABG pCO2 32.4 L POC ABG pO2 Sodium Potassium Chloride Carbon Dioxide BUN Creatinine Glucose POC Glucose 245 H Calcium Phosphorus Magnesium AST Alkaline Phosphatase C-Reactive Protein Total Protein Albumin Lipase Vitamin B12 TSH Urine WBC (Auto) Urine Chloride Urine Total Protein Vancomycin Trough Crossmatch 10/23/16 10/23/16 10/23/16 22:55 Unknown Unknown WBC 22.6 H RBC 3.26 L Hgb Hct MCV RDW 17.1 H Plt Count Lymph % (Auto) [place] % (Auto) [place] # Seg Neutrophils % Seg Neuts % (Manual) Lymphocytes % (Manual) 11.0 L Monocytes % (Manual) Basophils % (Manual) Nucleated RBC % Seg Neutrophils # Seg Neutrophils # Man 14.0 H Lymphocytes # (Manual) Monocytes # (Manual) Eosinophils # (Manual) Basophils # (Manual) PT INR APTT Heparin Anti-Xa Level 0.17 L 0.15 L POC ABG pH POC ABG pCO2 POC ABG pO2 Sodium Potassium Chloride Carbon Dioxide BUN Creatinine Glucose POC Glucose Calcium Phosphorus Magnesium AST Alkaline Phosphatase C-Reactive Protein Total Protein Albumin Lipase Vitamin B12 TSH Urine WBC (Auto) Urine Chloride Urine Total Protein Vancomycin Trough Crossmatch 10/23/16 10/24/16 10/24/16 Unknown 00:05 05:30 WBC RBC Hgb Hct MCV RDW Plt Count Lymph % (Auto) [place] % (Auto) [place] # Seg Neutrophils % Seg Neuts % (Manual) Lymphocytes % (Manual) Monocytes % (Manual) Basophils % (Manual) Nucleated RBC % Seg Neutrophils # Seg Neutrophils # Man Lymphocytes # (Manual) Monocytes # (Manual) Eosinophils # (Manual) Basophils # (Manual) PT INR APTT Heparin Anti-Xa Level 0.13 L POC ABG pH POC ABG pCO2 POC ABG pO2 Sodium Potassium Chloride 111.2 H Carbon Dioxide 20 L BUN 25 H Creatinine Glucose 227 H POC Glucose 118 H Calcium 7.1 L Phosphorus Magnesium AST Alkaline Phosphatase C-Reactive Protein Total Protein Albumin Lipase Vitamin B12 TSH Urine WBC (Auto) Urine Chloride Urine Total Protein Vancomycin Trough Crossmatch 10/24/16 10/24/16 10/24/16 11:00 11:00 12:06 WBC 17.6 H RBC 2.92 L Hgb 9.2 L Hct 28.3 L MCV RDW 16.9 H Plt Count Lymph % (Auto) [place] % (Auto) [place] # Seg Neutrophils % Seg Neuts % (Manual) Lymphocytes % (Manual) Monocytes % (Manual) Basophils % (Manual) Nucleated RBC % Seg Neutrophils # Seg Neutrophils # Man Lymphocytes # (Manual) Monocytes # (Manual) Eosinophils # (Manual) Basophils # (Manual) PT INR APTT Heparin Anti-Xa Level 0.27 L POC ABG pH POC ABG pCO2 POC ABG pO2 Sodium Potassium Chloride Carbon Dioxide BUN Creatinine Glucose POC Glucose 166 H Calcium Phosphorus Magnesium AST Alkaline Phosphatase C-Reactive Protein Total Protein Albumin Lipase Vitamin B12 TSH Urine WBC (Auto) Urine Chloride Urine Total Protein Vancomycin Trough Crossmatch 10/24/16 10/25/16 10/25/16 12:27 00:49 03:30 WBC RBC Hgb 8.8 L Hct 28.1 L MCV RDW Plt Count Lymph % (Auto) [place] % (Auto) [place] # Seg Neutrophils % Seg Neuts % (Manual) Lymphocytes % (Manual) Monocytes % (Manual) Basophils % (Manual) Nucleated RBC % Seg Neutrophils # Seg Neutrophils # Man Lymphocytes # (Manual) Monocytes # (Manual) Eosinophils # (Manual) Basophils # (Manual) PT INR APTT Heparin Anti-Xa Level POC ABG pH POC ABG pCO2 33.9 L POC ABG pO2 Sodium Potassium Chloride Carbon Dioxide BUN Creatinine Glucose POC Glucose 121 H Calcium Phosphorus Magnesium AST Alkaline Phosphatase C-Reactive Protein Total Protein Albumin Lipase Vitamin B12 TSH Urine WBC (Auto) Urine Chloride Urine Total Protein Vancomycin Trough Crossmatch 10/25/16 10/25/16 10/25/16 09:49 12:10 19:25 WBC 21.1 H RBC 3.02 L Hgb 9.3 L Hct 28.9 L MCV RDW 16.3 H Plt Count Lymph % (Auto) [place] % (Auto) [place] # Seg Neutrophils % Seg Neuts % (Manual) 81.0 H Lymphocytes % (Manual) 9.0 L Monocytes % (Manual) Basophils % (Manual) Nucleated RBC % Seg Neutrophils # Seg Neutrophils # Man 17.1 H Lymphocytes # (Manual) Monocytes # (Manual) Eosinophils # (Manual) Basophils # (Manual) PT INR APTT Heparin Anti-Xa Level POC ABG pH POC ABG pCO2 POC ABG pO2 Sodium Potassium Chloride Carbon Dioxide BUN Creatinine Glucose POC Glucose 158 H 151 H Calcium Phosphorus Magnesium AST Alkaline Phosphatase C-Reactive Protein Total Protein Albumin Lipase Vitamin B12 TSH Urine WBC (Auto) Urine Chloride Urine Total Protein Vancomycin Trough Crossmatch 10/26/16 10/26/16 10/26/16 00:20 01:09 05:02 WBC 22.2 H RBC 2.89 L Hgb 8.7 L Hct 27.8 L MCV RDW 16.4 H Plt Count Lymph % (Auto) [place] % (Auto) [place] # Seg Neutrophils % Seg Neuts % (Manual) Lymphocytes % (Manual) Monocytes % (Manual) Basophils % (Manual) Nucleated RBC % Seg Neutrophils # Seg Neutrophils # Man Lymphocytes # (Manual) Monocytes # (Manual) Eosinophils # (Manual) Basophils # (Manual) PT INR APTT Heparin Anti-Xa Level POC ABG pH POC ABG pCO2 POC ABG pO2 Sodium Potassium Chloride Carbon Dioxide BUN Creatinine Glucose POC Glucose 44 L 112 H Calcium Phosphorus Magnesium AST Alkaline Phosphatase C-Reactive Protein Total Protein Albumin Lipase Vitamin B12 TSH Urine WBC (Auto) Urine Chloride Urine Total Protein Vancomycin Trough Crossmatch 10/26/16 10/26/16 10/26/16 05:02 12:11 12:14 WBC RBC Hgb Hct MCV RDW Plt Count Lymph % (Auto) [place] % (Auto) [place] # Seg Neutrophils % Seg Neuts % (Manual) Lymphocytes % (Manual) Monocytes % (Manual) Basophils % (Manual) Nucleated RBC % Seg Neutrophils # Seg Neutrophils # Man Lymphocytes # (Manual) Monocytes # (Manual) Eosinophils # (Manual) Basophils # (Manual) PT INR APTT Heparin Anti-Xa Level POC ABG pH POC ABG pCO2 32.0 L POC ABG pO2 33 L Sodium Potassium 3.2 L D Chloride Carbon Dioxide 20 L BUN 24 H Creatinine Glucose 104 H POC Glucose 194 H Calcium 7.7 L Phosphorus Magnesium AST Alkaline Phosphatase C-Reactive Protein Total Protein Albumin Lipase Vitamin B12 TSH Urine WBC (Auto) Urine Chloride Urine Total Protein Vancomycin Trough Crossmatch 10/26/16 10/26/16 10/27/16 15:28 17:23 00:04 WBC RBC Hgb Hct MCV RDW Plt Count Lymph % (Auto) [place] % (Auto) [place] # Seg Neutrophils % Seg Neuts % (Manual) Lymphocytes % (Manual) Monocytes % (Manual) Basophils % (Manual) Nucleated RBC % Seg Neutrophils # Seg Neutrophils # Man Lymphocytes # (Manual) Monocytes # (Manual) Eosinophils # (Manual) Basophils # (Manual) PT INR APTT Heparin Anti-Xa Level POC ABG pH POC ABG pCO2 33.7 L POC ABG pO2 Sodium Potassium Chloride Carbon Dioxide BUN Creatinine Glucose POC Glucose 181 H 230 H Calcium Phosphorus Magnesium AST Alkaline Phosphatase C-Reactive Protein Total Protein Albumin Lipase Vitamin B12 TSH Urine WBC (Auto) Urine Chloride Urine Total Protein Vancomycin Trough Crossmatch 10/27/16 10/27/16 10/27/16 05:15 05:15 05:38 WBC 25.5 H RBC 3.07 L Hgb 9.4 L Hct 30.1 L MCV 98 H RDW 16.4 H Plt Count 527 H Lymph % (Auto) [place] % (Auto) [place] # Seg Neutrophils % Seg Neuts % (Manual) Lymphocytes % (Manual) Monocytes % (Manual) Basophils % (Manual) Nucleated RBC % Seg Neutrophils # Seg Neutrophils # Man Lymphocytes # (Manual) Monocytes # (Manual) Eosinophils # (Manual) Basophils # (Manual) PT INR APTT Heparin Anti-Xa Level POC ABG pH POC ABG pCO2 POC ABG pO2 Sodium Potassium Chloride Carbon Dioxide 19 L BUN 23 H Creatinine Glucose 160 H POC Glucose 168 H Calcium 8.0 L Phosphorus Magnesium AST Alkaline Phosphatase C-Reactive Protein Total Protein Albumin Lipase Vitamin B12 TSH Urine WBC (Auto) Urine Chloride Urine Total Protein Vancomycin Trough Crossmatch 10/27/16 10/27/16 10/27/16 11:59 18:35 23:48 WBC RBC Hgb Hct MCV RDW Plt Count Lymph % (Auto) [place] % (Auto) [place] # Seg Neutrophils % Seg Neuts % (Manual) Lymphocytes % (Manual) Monocytes % (Manual) Basophils % (Manual) Nucleated RBC % Seg Neutrophils # Seg Neutrophils # Man Lymphocytes # (Manual) Monocytes # (Manual) Eosinophils # (Manual) Basophils # (Manual) PT INR APTT Heparin Anti-Xa Level POC ABG pH POC ABG pCO2 POC ABG pO2 Sodium Potassium Chloride Carbon Dioxide BUN Creatinine Glucose POC Glucose 197 H 318 H 316 H Calcium Phosphorus Magnesium AST Alkaline Phosphatase C-Reactive Protein Total Protein Albumin Lipase Vitamin B12 TSH Urine WBC (Auto) Urine Chloride Urine Total Protein Vancomycin Trough Crossmatch 10/28/16 10/28/16 10/28/16 03:13 04:10 04:10 WBC 18.8 H RBC 2.64 L Hgb 8.1 L Hct 26.1 L MCV 99 H RDW 16.2 H Plt Count 544 H Lymph % (Auto) [place] % (Auto) [place] # Seg Neutrophils % Seg Neuts % (Manual) Lymphocytes % (Manual) Monocytes % (Manual) Basophils % (Manual) Nucleated RBC % Seg Neutrophils # Seg Neutrophils # Man Lymphocytes # (Manual) Monocytes # (Manual) Eosinophils # (Manual) Basophils # (Manual) PT INR APTT Heparin Anti-Xa Level POC ABG pH POC ABG pCO2 POC ABG pO2 Sodium Potassium Chloride Carbon Dioxide 21 L BUN 24 H Creatinine Glucose 302 H POC Glucose 304 H Calcium 7.7 L Phosphorus Magnesium AST Alkaline Phosphatase C-Reactive Protein Total Protein Albumin Lipase Vitamin B12 TSH Urine WBC (Auto) Urine Chloride Urine Total Protein Vancomycin Trough Crossmatch 10/28/16 10/28/16 10/28/16 04:10 12:36 18:27 WBC RBC Hgb Hct MCV RDW Plt Count Lymph % (Auto) [place] % (Auto) [place] # Seg Neutrophils % Seg Neuts % (Manual) Lymphocytes % (Manual) Monocytes % (Manual) Basophils % (Manual) Nucleated RBC % Seg Neutrophils # Seg Neutrophils # Man Lymphocytes # (Manual) Monocytes # (Manual) Eosinophils # (Manual) Basophils # (Manual) PT INR APTT Heparin Anti-Xa Level 0.20 L POC ABG pH POC ABG pCO2 POC ABG pO2 Sodium Potassium Chloride Carbon Dioxide BUN Creatinine Glucose POC Glucose 205 H 339 H Calcium Phosphorus Magnesium AST Alkaline Phosphatase C-Reactive Protein Total Protein Albumin Lipase Vitamin B12 TSH Urine WBC (Auto) Urine Chloride Urine Total Protein Vancomycin Trough Crossmatch 10/29/16 10/29/16 10/29/16 01:05 06:19 09:30 WBC 20.3 H RBC 2.80 L Hgb 8.5 L Hct 26.7 L MCV RDW 15.4 H Plt Count 571 H Lymph % (Auto) [place] % (Auto) [place] # Seg Neutrophils % Seg Neuts % (Manual) 75.0 H Lymphocytes % (Manual) 4.0 L Monocytes % (Manual) Basophils % (Manual) Nucleated RBC % Seg Neutrophils # Seg Neutrophils # Man 15.2 H Lymphocytes # (Manual) 0.8 L Monocytes # (Manual) Eosinophils # (Manual) Basophils # (Manual) PT INR APTT Heparin Anti-Xa Level POC ABG pH POC ABG pCO2 POC ABG pO2 Sodium Potassium Chloride Carbon Dioxide BUN Creatinine Glucose POC Glucose 275 H 179 H Calcium Phosphorus Magnesium AST Alkaline Phosphatase C-Reactive Protein Total Protein Albumin Lipase Vitamin B12 TSH Urine WBC (Auto) Urine Chloride Urine Total Protein Vancomycin Trough Crossmatch 10/29/16 10/29/16 10/29/16 11:46 15:18 17:55 WBC RBC Hgb Hct MCV RDW Plt Count Lymph % (Auto) [place] % (Auto) [place] # Seg Neutrophils % Seg Neuts % (Manual) Lymphocytes % (Manual) Monocytes % (Manual) Basophils % (Manual) Nucleated RBC % Seg Neutrophils # Seg Neutrophils # Man Lymphocytes # (Manual) Monocytes # (Manual) Eosinophils # (Manual) Basophils # (Manual) PT INR APTT Heparin Anti-Xa Level 1.15 H POC ABG pH POC ABG pCO2 POC ABG pO2 Sodium Potassium Chloride Carbon Dioxide BUN Creatinine Glucose POC Glucose 122 H 255 H Calcium Phosphorus Magnesium AST Alkaline Phosphatase C-Reactive Protein Total Protein Albumin Lipase Vitamin B12 TSH Urine WBC (Auto) Urine Chloride Urine Total Protein Vancomycin Trough Crossmatch 10/30/16 10/30/16 10/30/16 00:10 05:30 05:30 WBC 19.8 H RBC 2.51 L Hgb 7.7 L Hct 24.1 L MCV RDW 15.5 H Plt Count 534 H Lymph % (Auto) [place] % (Auto) [place] # Seg Neutrophils % Seg Neuts % (Manual) Lymphocytes % (Manual) Monocytes % (Manual) Basophils % (Manual) Nucleated RBC % Seg Neutrophils # Seg Neutrophils # Man Lymphocytes # (Manual) Monocytes # (Manual) Eosinophils # (Manual) Basophils # (Manual) PT INR APTT Heparin Anti-Xa Level POC ABG pH POC ABG pCO2 POC ABG pO2 Sodium Potassium Chloride Carbon Dioxide BUN Creatinine Glucose 211 H POC Glucose 202 H Calcium 7.4 L Phosphorus Magnesium AST Alkaline Phosphatase C-Reactive Protein Total Protein Albumin Lipase Vitamin B12 TSH Urine WBC (Auto) Urine Chloride Urine Total Protein Vancomycin Trough Crossmatch 10/30/16 10/30/16 10/30/16 06:32 12:51 17:47 WBC RBC Hgb Hct MCV RDW Plt Count Lymph % (Auto) [place] % (Auto) [place] # Seg Neutrophils % Seg Neuts % (Manual) Lymphocytes % (Manual) Monocytes % (Manual) Basophils % (Manual) Nucleated RBC % Seg Neutrophils # Seg Neutrophils # Man Lymphocytes # (Manual) Monocytes # (Manual) Eosinophils # (Manual) Basophils # (Manual) PT INR APTT Heparin Anti-Xa Level POC ABG pH POC ABG pCO2 POC ABG pO2 Sodium Potassium Chloride Carbon Dioxide BUN Creatinine Glucose POC Glucose 207 H 218 H 169 H Calcium Phosphorus Magnesium AST Alkaline Phosphatase C-Reactive Protein Total Protein Albumin Lipase Vitamin B12 TSH Urine WBC (Auto) Urine Chloride Urine Total Protein Vancomycin Trough Crossmatch 10/30/16 10/31/16 10/31/16 23:59 05:25 11:21 WBC RBC Hgb Hct MCV RDW Plt Count Lymph % (Auto) [place] % (Auto) [place] # Seg Neutrophils % Seg Neuts % (Manual) Lymphocytes % (Manual) Monocytes % (Manual) Basophils % (Manual) Nucleated RBC % Seg Neutrophils # Seg Neutrophils # Man Lymphocytes # (Manual) Monocytes # (Manual) Eosinophils # (Manual) Basophils # (Manual) PT INR APTT Heparin Anti-Xa Level POC ABG pH POC ABG pCO2 POC ABG pO2 Sodium Potassium Chloride Carbon Dioxide BUN Creatinine Glucose POC Glucose 138 H 127 H 132 H Calcium Phosphorus Magnesium AST Alkaline Phosphatase C-Reactive Protein Total Protein Albumin Lipase Vitamin B12 TSH Urine WBC (Auto) Urine Chloride Urine Total Protein Vancomycin Trough Crossmatch 10/31/16 10/31/16 11/01/16 17:07 23:54 05:47 WBC RBC Hgb Hct MCV RDW Plt Count Lymph % (Auto) [place] % (Auto) [place] # Seg Neutrophils % Seg Neuts % (Manual) Lymphocytes % (Manual) Monocytes % (Manual) Basophils % (Manual) Nucleated RBC % Seg Neutrophils # Seg Neutrophils # Man Lymphocytes # (Manual) Monocytes # (Manual) Eosinophils # (Manual) Basophils # (Manual) PT INR APTT Heparin Anti-Xa Level POC ABG pH POC ABG pCO2 POC ABG pO2 Sodium Potassium Chloride Carbon Dioxide BUN Creatinine Glucose POC Glucose 138 H 153 H 150 H Calcium Phosphorus Magnesium AST Alkaline Phosphatase C-Reactive Protein Total Protein Albumin Lipase Vitamin B12 TSH Urine WBC (Auto) Urine Chloride Urine Total Protein Vancomycin Trough Crossmatch 11/01/16 11/01/16 11/01/16 06:33 06:33 12:16 WBC 19.2 H RBC 2.51 L Hgb 7.9 L Hct 24.8 L MCV 99 H D RDW 16.1 H Plt Count 569 H Lymph % (Auto) [place] % (Auto) [place] # Seg Neutrophils % Seg Neuts % (Manual) Lymphocytes % (Manual) Monocytes % (Manual) Basophils % (Manual) Nucleated RBC % Seg Neutrophils # Seg Neutrophils # Man Lymphocytes # (Manual) Monocytes # (Manual) Eosinophils # (Manual) Basophils # (Manual) PT INR APTT Heparin Anti-Xa Level POC ABG pH POC ABG pCO2 POC ABG pO2 Sodium Potassium 3.5 L Chloride Carbon Dioxide 21 L BUN Creatinine Glucose 137 H POC Glucose 125 H Calcium 7.7 L Phosphorus Magnesium AST Alkaline Phosphatase 148 H C-Reactive Protein Total Protein 6.2 L Albumin 2.0 L Lipase Vitamin B12 TSH Urine WBC (Auto) Urine Chloride Urine Total Protein Vancomycin Trough Crossmatch 11/01/16 11/02/16 11/02/16 17:37 00:05 04:15 WBC RBC Hgb Hct MCV RDW Plt Count Lymph % (Auto) [place] % (Auto) [place] # Seg Neutrophils % Seg Neuts % (Manual) Lymphocytes % (Manual) Monocytes % (Manual) Basophils % (Manual) Nucleated RBC % Seg Neutrophils # Seg Neutrophils # Man Lymphocytes # (Manual) Monocytes # (Manual) Eosinophils # (Manual) Basophils # (Manual) PT INR APTT Heparin Anti-Xa Level < 0.10 L POC ABG pH POC ABG pCO2 POC ABG pO2 Sodium Potassium 3.2 L Chloride Carbon Dioxide BUN 6 L Creatinine Glucose 135 H POC Glucose 164 H Calcium 7.5 L Phosphorus Magnesium AST Alkaline Phosphatase 132 H C-Reactive Protein Total Protein 6.2 L Albumin 1.8 L Lipase Vitamin B12 TSH Urine WBC (Auto) Urine Chloride Urine Total Protein Vancomycin Trough Crossmatch 11/02/16 11/02/16 11/02/16 04:15 05:54 12:15 WBC 17.7 H RBC 2.43 L Hgb 7.6 L Hct 23.5 L MCV RDW 15.9 H Plt Count 502 H Lymph % (Auto) [place] % (Auto) [place] # Seg Neutrophils % Seg Neuts % (Manual) 84.0 H Lymphocytes % (Manual) 11.0 L Monocytes % (Manual) Basophils % (Manual) Nucleated RBC % 1.0 H Seg Neutrophils # Seg Neutrophils # Man 14.9 H Lymphocytes # (Manual) Monocytes # (Manual) Eosinophils # (Manual) Basophils # (Manual) PT INR APTT Heparin Anti-Xa Level POC ABG pH POC ABG pCO2 POC ABG pO2 Sodium Potassium Chloride Carbon Dioxide BUN Creatinine Glucose POC Glucose 152 H 137 H Calcium Phosphorus Magnesium AST Alkaline Phosphatase C-Reactive Protein Total Protein Albumin Lipase Vitamin B12 TSH Urine WBC (Auto) Urine Chloride Urine Total Protein Vancomycin Trough Crossmatch 11/02/16 11/03/16 11/03/16 17:00 00:05 00:05 WBC RBC Hgb Hct MCV RDW Plt Count Lymph % (Auto) [place] % (Auto) [place] # Seg Neutrophils % Seg Neuts % (Manual) Lymphocytes % (Manual) Monocytes % (Manual) Basophils % (Manual) Nucleated RBC % Seg Neutrophils # Seg Neutrophils # Man Lymphocytes # (Manual) Monocytes # (Manual) Eosinophils # (Manual) Basophils # (Manual) PT INR APTT Heparin Anti-Xa Level POC ABG pH POC ABG pCO2 POC ABG pO2 Sodium Potassium Chloride Carbon Dioxide 20 L BUN 5 L Creatinine Glucose 139 H POC Glucose 161 H Calcium 6.7 L Phosphorus Magnesium 1.2 L AST Alkaline Phosphatase C-Reactive Protein Total Protein Albumin Lipase Vitamin B12 TSH Urine WBC (Auto) Urine Chloride Urine Total Protein Vancomycin Trough Crossmatch 11/03/16 11/03/16 11/03/16 00:05 02:05 04:23 WBC 15.9 H 14.0 H RBC 1.93 L 2.38 L Hgb 5.9 L* 7.3 L Hct 18.9 L* 23.1 L MCV 98 H RDW 15.9 H 15.9 H Plt Count Lymph % (Auto) [place] % (Auto) [place] # Seg Neutrophils % Seg Neuts % (Manual) 85.0 H Lymphocytes % (Manual) 4.0 L Monocytes % (Manual) Basophils % (Manual) Nucleated RBC % Seg Neutrophils # Seg Neutrophils # Man 13.5 H Lymphocytes # (Manual) 0.6 L Monocytes # (Manual) Eosinophils # (Manual) Basophils # (Manual) PT INR APTT Heparin Anti-Xa Level POC ABG pH POC ABG pCO2 POC ABG pO2 Sodium Potassium Chloride Carbon Dioxide BUN 5 L Creatinine Glucose 127 H POC Glucose Calcium 7.2 L Phosphorus Magnesium AST Alkaline Phosphatase C-Reactive Protein Total Protein 5.8 L Albumin 1.5 L Lipase Vitamin B12 TSH Urine WBC (Auto) Urine Chloride Urine Total Protein Vancomycin Trough Crossmatch 11/03/16 11/03/16 11/03/16 09:14 09:27 11:54 WBC RBC Hgb Hct MCV RDW Plt Count Lymph % (Auto) [place] % (Auto) [place] # Seg Neutrophils % Seg Neuts % (Manual) Lymphocytes % (Manual) Monocytes % (Manual) Basophils % (Manual) Nucleated RBC % Seg Neutrophils # Seg Neutrophils # Man Lymphocytes # (Manual) Monocytes # (Manual) Eosinophils # (Manual) Basophils # (Manual) PT INR APTT Heparin Anti-Xa Level 0.11 L POC ABG pH POC ABG pCO2 POC ABG pO2 Sodium Potassium Chloride Carbon Dioxide BUN 5 L Creatinine Glucose 111 H POC Glucose 139 H Calcium 6.7 L Phosphorus Magnesium AST Alkaline Phosphatase C-Reactive Protein Total Protein Albumin Lipase Vitamin B12 TSH Urine WBC (Auto) Urine Chloride Urine Total Protein Vancomycin Trough Crossmatch 11/03/16 11/03/16 11/03/16 16:26 18:01 18:01 WBC RBC Hgb Hct MCV RDW Plt Count Lymph % (Auto) [place] % (Auto) [place] # Seg Neutrophils % Seg Neuts % (Manual) Lymphocytes % (Manual) Monocytes % (Manual) Basophils % (Manual) Nucleated RBC % Seg Neutrophils # Seg Neutrophils # Man Lymphocytes # (Manual) Monocytes # (Manual) Eosinophils # (Manual) Basophils # (Manual) PT INR APTT Heparin Anti-Xa Level 2.00 H POC ABG pH POC ABG pCO2 POC ABG pO2 Sodium Potassium Chloride Carbon Dioxide BUN Creatinine Glucose POC Glucose 142 H Calcium Phosphorus Magnesium AST Alkaline Phosphatase C-Reactive Protein Total Protein Albumin Lipase Vitamin B12 TSH Urine WBC (Auto) Urine Chloride Urine Total Protein Vancomycin Trough Crossmatch See Detail 11/04/16 11/04/16 11/04/16 02:15 02:15 06:35 WBC 11.8 H RBC 2.39 L Hgb 7.4 L Hct 23.1 L MCV RDW 15.9 H Plt Count Lymph % (Auto) [place] % (Auto) [place] # Seg Neutrophils % Seg Neuts % (Manual) 76.0 H Lymphocytes % (Manual) 12.0 L Monocytes % (Manual) 9.0 H Basophils % (Manual) Nucleated RBC % Seg Neutrophils # Seg Neutrophils # Man 9.0 H Lymphocytes # (Manual) Monocytes # (Manual) 1.1 H Eosinophils # (Manual) Basophils # (Manual) PT INR APTT Heparin Anti-Xa Level < 0.10 L POC ABG pH POC ABG pCO2 POC ABG pO2 Sodium Potassium Chloride Carbon Dioxide 21 L BUN 5 L Creatinine Glucose 112 H POC Glucose Calcium 6.8 L Phosphorus Magnesium AST Alkaline Phosphatase C-Reactive Protein Total Protein 5.7 L Albumin 1.7 L Lipase Vitamin B12 TSH Urine WBC (Auto) Urine Chloride Urine Total Protein Vancomycin Trough Crossmatch 11/04/16 11/04/16 11/04/16 10:51 12:58 15:04 WBC RBC Hgb Hct MCV RDW Plt Count Lymph % (Auto) [place] % (Auto) [place] # Seg Neutrophils % Seg Neuts % (Manual) Lymphocytes % (Manual) Monocytes % (Manual) Basophils % (Manual) Nucleated RBC % Seg Neutrophils # Seg Neutrophils # Man Lymphocytes # (Manual) Monocytes # (Manual) Eosinophils # (Manual) Basophils # (Manual) PT INR APTT Heparin Anti-Xa Level 1.05 H POC ABG pH POC ABG pCO2 33.7 L POC ABG pO2 60 L Sodium Potassium Chloride Carbon Dioxide BUN Creatinine Glucose POC Glucose 118 H Calcium Phosphorus Magnesium AST Alkaline Phosphatase C-Reactive Protein Total Protein Albumin Lipase Vitamin B12 TSH Urine WBC (Auto) Urine Chloride Urine Total Protein Vancomycin Trough Crossmatch 11/04/16 11/04/16 11/05/16 17:20 20:31 02:30 WBC RBC Hgb Hct MCV RDW Plt Count Lymph % (Auto) [place] % (Auto) [place] # Seg Neutrophils % Seg Neuts % (Manual) Lymphocytes % (Manual) Monocytes % (Manual) Basophils % (Manual) Nucleated RBC % Seg Neutrophils # Seg Neutrophils # Man Lymphocytes # (Manual) Monocytes # (Manual) Eosinophils # (Manual) Basophils # (Manual) PT INR APTT Heparin Anti-Xa Level POC ABG pH POC ABG pCO2 POC ABG pO2 Sodium Potassium 3.5 L Chloride Carbon Dioxide 18 L BUN 5 L Creatinine 0.6 L Glucose 110 H POC Glucose 228 H 169 H Calcium 7.1 L Phosphorus Magnesium AST Alkaline Phosphatase C-Reactive Protein Total Protein Albumin 1.9 L Lipase Vitamin B12 TSH Urine WBC (Auto) Urine Chloride Urine Total Protein Vancomycin Trough Crossmatch 11/05/16 11/05/16 11/05/16 02:30 17:52 21:07 WBC 14.1 H RBC Hgb Hct MCV RDW 16.7 H Plt Count Lymph % (Auto) [place] % (Auto) [place] # Seg Neutrophils % Seg Neuts % (Manual) 80.0 H Lymphocytes % (Manual) 6.0 L Monocytes % (Manual) 8.0 H Basophils % (Manual) Nucleated RBC % Seg Neutrophils # Seg Neutrophils # Man 11.3 H Lymphocytes # (Manual) 0.8 L Monocytes # (Manual) 1.1 H Eosinophils # (Manual) Basophils # (Manual) PT INR APTT Heparin Anti-Xa Level < 0.10 L POC ABG pH POC ABG pCO2 POC ABG pO2 Sodium Potassium Chloride Carbon Dioxide BUN Creatinine Glucose POC Glucose 174 H Calcium Phosphorus Magnesium AST Alkaline Phosphatase C-Reactive Protein Total Protein Albumin Lipase Vitamin B12 TSH Urine WBC (Auto) Urine Chloride Urine Total Protein Vancomycin Trough Crossmatch 11/05/16 11/06/16 11/06/16 23:30 05:00 05:00 WBC 15.2 H RBC 3.29 L Hgb 10.0 L Hct MCV RDW 16.9 H Plt Count Lymph % (Auto) [place] % (Auto) [place] # Seg Neutrophils % Seg Neuts % (Manual) Lymphocytes % (Manual) Monocytes % (Manual) Basophils % (Manual) Nucleated RBC % Seg Neutrophils # Seg Neutrophils # Man Lymphocytes # (Manual) Monocytes # (Manual) Eosinophils # (Manual) Basophils # (Manual) PT INR APTT Heparin Anti-Xa Level 0.94 H POC ABG pH POC ABG pCO2 POC ABG pO2 Sodium Potassium Chloride Carbon Dioxide BUN Creatinine Glucose POC Glucose 131 H Calcium Phosphorus Magnesium AST Alkaline Phosphatase C-Reactive Protein Total Protein Albumin Lipase Vitamin B12 TSH Urine WBC (Auto) Urine Chloride Urine Total Protein Vancomycin Trough Crossmatch 11/06/16 11/06/16 11/06/16 05:00 11:45 18:23 WBC RBC Hgb Hct MCV RDW Plt Count Lymph % (Auto) [place] % (Auto) [place] # Seg Neutrophils % Seg Neuts % (Manual) Lymphocytes % (Manual) Monocytes % (Manual) Basophils % (Manual) Nucleated RBC % Seg Neutrophils # Seg Neutrophils # Man Lymphocytes # (Manual) Monocytes # (Manual) Eosinophils # (Manual) Basophils # (Manual) PT INR APTT Heparin Anti-Xa Level POC ABG pH POC ABG pCO2 POC ABG pO2 Sodium Potassium 3.5 L Chloride 107.1 H Carbon Dioxide 20 L BUN 4 L Creatinine 0.6 L Glucose 104 H POC Glucose 141 H 255 H Calcium 6.7 L Phosphorus Magnesium AST Alkaline Phosphatase C-Reactive Protein Total Protein Albumin Lipase Vitamin B12 TSH Urine WBC (Auto) Urine Chloride Urine Total Protein Vancomycin Trough Crossmatch 11/06/16 11/06/16 11/07/16 22:07 23:07 11:41 WBC RBC Hgb Hct MCV RDW Plt Count Lymph % (Auto) [place] % (Auto) [place] # Seg Neutrophils % Seg Neuts % (Manual) Lymphocytes % (Manual) Monocytes % (Manual) Basophils % (Manual) Nucleated RBC % Seg Neutrophils # Seg Neutrophils # Man Lymphocytes # (Manual) Monocytes # (Manual) Eosinophils # (Manual) Basophils # (Manual) PT INR APTT Heparin Anti-Xa Level 0.80 H POC ABG pH POC ABG pCO2 POC ABG pO2 Sodium Potassium Chloride Carbon Dioxide BUN Creatinine Glucose POC Glucose 183 H 132 H Calcium Phosphorus Magnesium AST Alkaline Phosphatase C-Reactive Protein Total Protein Albumin Lipase Vitamin B12 TSH Urine WBC (Auto) Urine Chloride Urine Total Protein Vancomycin Trough Crossmatch 03/22/17 03/22/17 03/22/17 12:17 17:05 17:58 WBC RBC Hgb Hct MCV RDW Plt Count Lymph % (Auto) [place] % (Auto) [place] # Seg Neutrophils % Seg Neuts % (Manual) Lymphocytes % (Manual) Monocytes % (Manual) Basophils % (Manual) Nucleated RBC % Seg Neutrophils # Seg Neutrophils # Man Lymphocytes # (Manual) Monocytes # (Manual) Eosinophils # (Manual) Basophils # (Manual) PT INR APTT Heparin Anti-Xa Level 0.87 H POC ABG pH 7.324 L POC ABG pCO2 POC ABG pO2 Sodium Potassium Chloride Carbon Dioxide BUN Creatinine Glucose POC Glucose 158 H Calcium Phosphorus Magnesium AST Alkaline Phosphatase C-Reactive Protein Total Protein Albumin Lipase Vitamin B12 TSH Urine WBC (Auto) Urine Chloride Urine Total Protein Vancomycin Trough Crossmatch 11/07/16 11/07/16 11/07/16 23:26 Unknown Unknown WBC 12.3 H RBC 2.96 L Hgb 9.1 L Hct 27.9 L MCV RDW 16.8 H Plt Count Lymph % (Auto) [place] % (Auto) [place] # Seg Neutrophils % Seg Neuts % (Manual) 80.0 H Lymphocytes % (Manual) 7.0 L Monocytes % (Manual) Basophils % (Manual) Nucleated RBC % Seg Neutrophils # Seg Neutrophils # Man 9.8 H Lymphocytes # (Manual) 0.9 L Monocytes # (Manual) Eosinophils # (Manual) Basophils # (Manual) PT INR APTT Heparin Anti-Xa Level POC ABG pH POC ABG pCO2 POC ABG pO2 Sodium Potassium Chloride Carbon Dioxide 19 L BUN Creatinine Glucose 106 H POC Glucose 130 H Calcium 6.9 L Phosphorus Magnesium AST Alkaline Phosphatase C-Reactive Protein Total Protein Albumin Lipase Vitamin B12 TSH Urine WBC (Auto) Urine Chloride Urine Total Protein Vancomycin Trough Crossmatch 11/07/16 11/08/16 11/08/16 Unknown 05:14 05:20 WBC 12.4 H RBC 3.04 L Hgb 9.2 L Hct 28.8 L MCV RDW 16.6 H Plt Count Lymph % (Auto) [place] % (Auto) [place] # Seg Neutrophils % Seg Neuts % (Manual) 77.0 H Lymphocytes % (Manual) 5.0 L Monocytes % (Manual) Basophils % (Manual) 2.0 H Nucleated RBC % Seg Neutrophils # Seg Neutrophils # Man 9.5 H Lymphocytes # (Manual) 0.6 L Monocytes # (Manual) Eosinophils # (Manual) Basophils # (Manual) 0.2 H PT INR APTT Heparin Anti-Xa Level 0.90 H POC ABG pH POC ABG pCO2 POC ABG pO2 Sodium Potassium Chloride Carbon Dioxide BUN Creatinine Glucose POC Glucose 204 H Calcium Phosphorus Magnesium AST Alkaline Phosphatase C-Reactive Protein Total Protein Albumin Lipase Vitamin B12 TSH Urine WBC (Auto) Urine Chloride Urine Total Protein Vancomycin Trough Crossmatch 11/08/16 11/08/16 11/08/16 05:20 12:10 13:10 WBC RBC Hgb Hct MCV RDW Plt Count Lymph % (Auto) [place] % (Auto) [place] # Seg Neutrophils % Seg Neuts % (Manual) Lymphocytes % (Manual) Monocytes % (Manual) Basophils % (Manual) Nucleated RBC % Seg Neutrophils # Seg Neutrophils # Man Lymphocytes # (Manual) Monocytes # (Manual) Eosinophils # (Manual) Basophils # (Manual) PT INR APTT Heparin Anti-Xa Level POC ABG pH POC ABG pCO2 33.7 L POC ABG pO2 Sodium 136 L Potassium Chloride Carbon Dioxide 19 L BUN Creatinine Glucose 192 H POC Glucose 180 H Calcium 7.1 L Phosphorus Magnesium AST Alkaline Phosphatase C-Reactive Protein Total Protein Albumin Lipase Vitamin B12 TSH Urine WBC (Auto) Urine Chloride Urine Total Protein Vancomycin Trough Crossmatch 11/08/16 11/08/16 11/08/16 17:26 20:45 23:34 WBC RBC Hgb Hct MCV RDW Plt Count Lymph % (Auto) [place] % (Auto) [place] # Seg Neutrophils % Seg Neuts % (Manual) Lymphocytes % (Manual) Monocytes % (Manual) Basophils % (Manual) Nucleated RBC % Seg Neutrophils # Seg Neutrophils # Man Lymphocytes # (Manual) Monocytes # (Manual) Eosinophils # (Manual) Basophils # (Manual) PT INR APTT Heparin Anti-Xa Level POC ABG pH POC ABG pCO2 POC ABG pO2 Sodium Potassium Chloride Carbon Dioxide BUN Creatinine Glucose POC Glucose 187 H 178 H Calcium Phosphorus Magnesium AST Alkaline Phosphatase C-Reactive Protein Total Protein Albumin Lipase Vitamin B12 TSH Urine WBC (Auto) Urine Chloride Urine Total Protein Vancomycin Trough 35.4 H Crossmatch 11/09/16 11/09/16 11/09/16 05:30 05:30 05:59 WBC 11.5 H RBC 2.96 L Hgb 9.2 L Hct 28.2 L MCV RDW 16.4 H Plt Count Lymph % (Auto) [place] % (Auto) [place] # Seg Neutrophils % Seg Neuts % (Manual) 76.0 H Lymphocytes % (Manual) 2.0 L Monocytes % (Manual) Basophils % (Manual) Nucleated RBC % Seg Neutrophils # Seg Neutrophils # Man 8.7 H Lymphocytes # (Manual) 0.2 L Monocytes # (Manual) Eosinophils # (Manual) Basophils # (Manual) PT INR APTT Heparin Anti-Xa Level POC ABG pH POC ABG pCO2 POC ABG pO2 Sodium Potassium 3.4 L Chloride 107.6 H Carbon Dioxide 19 L BUN Creatinine 0.6 L Glucose 207 H POC Glucose 263 H Calcium 7.3 L Phosphorus Magnesium AST Alkaline Phosphatase C-Reactive Protein Total Protein Albumin Lipase Vitamin B12 TSH Urine WBC (Auto) Urine Chloride Urine Total Protein Vancomycin Trough Crossmatch 11/09/16 11/09/16 11/09/16 11:49 15:24 18:04 WBC RBC Hgb Hct MCV RDW Plt Count Lymph % (Auto) [place] % (Auto) [place] # Seg Neutrophils % Seg Neuts % (Manual) Lymphocytes % (Manual) Monocytes % (Manual) Basophils % (Manual) Nucleated RBC % Seg Neutrophils # Seg Neutrophils # Man Lymphocytes # (Manual) Monocytes # (Manual) Eosinophils # (Manual) Basophils # (Manual) PT INR APTT Heparin Anti-Xa Level POC ABG pH POC ABG pCO2 33.8 L POC ABG pO2 131 H Sodium Potassium Chloride Carbon Dioxide BUN Creatinine Glucose POC Glucose 269 H 242 H Calcium Phosphorus Magnesium AST Alkaline Phosphatase C-Reactive Protein Total Protein Albumin Lipase Vitamin B12 TSH Urine WBC (Auto) Urine Chloride Urine Total Protein Vancomycin Trough Crossmatch 11/10/16 11/10/16 11/10/16 04:30 04:30 04:30 WBC 15.7 H RBC 3.17 L Hgb 9.7 L Hct 30.2 L MCV RDW 16.2 H Plt Count Lymph % (Auto) [place] % (Auto) [place] # Seg Neutrophils % Seg Neuts % (Manual) Lymphocytes % (Manual) Monocytes % (Manual) Basophils % (Manual) Nucleated RBC % Seg Neutrophils # Seg Neutrophils # Man 8.5 H Lymphocytes # (Manual) Monocytes # (Manual) Eosinophils # (Manual) 0.5 H Basophils # (Manual) PT INR APTT Heparin Anti-Xa Level 1.09 H POC ABG pH POC ABG pCO2 POC ABG pO2 Sodium Potassium Chloride Carbon Dioxide 19 L BUN Creatinine 0.6 L Glucose 199 H POC Glucose Calcium 7.8 L Phosphorus Magnesium AST Alkaline Phosphatase C-Reactive Protein Total Protein Albumin Lipase Vitamin B12 TSH Urine WBC (Auto) Urine Chloride Urine Total Protein Vancomycin Trough Crossmatch Chest x-ray: pending Allied health notes reviewed: RT
[2016-11-10] MEDS ORDERED: LOPRESSOR IV PRN (11:44)
--- NOTE | 2016-11-10 12:11 | Progress Note ---
Assessment and Plan Assessment and plan: 1. Acute respiratory failure with hypercapnia. Vent supported. s/p Trach and PEG. Continue with bronchodilators and wean as tolerated. 2. Diabetes mellitus type II. DKA resolved. Continue Sliding scale insulin 3. Sepsis- Leukocytosis Improving Suspected due to UTI, urine has only grown Paula, sputum cultures grew group B strep, continue broad-spectrum antibiotics, infectious disease input appreciated 4. 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/right lower extremity gangrene. The patient is status post recent right below the knee amputation. Patient currently on heparin drip. 5. Hypokalemia: Supplement potassium as needed 6. Toxic metabolic encephalopathy. Continue supportive care. 7. Sinus Tachycardia. Physiologic secondary to sepsis. 8. Anemia. Multifactorial including sepsis. s/p transfusion of PRBCs. Continue to follow H&H. 9. RUE DVT. Patient currently on heparin drip. 10. Abdominal pain. Check amylase and lipase levels. Check KUB. History Interval history: No new issues overnight. Patient complaining of left-sided abdominal pain. Hospitalist Physical - Constitutional Vitals: Temp Pulse Resp BP Pulse Ox 99.3 F 114 H 20 200/89 99 11/10/16 08:00 11/10/16 11:50 11/10/16 11:00 11/10/16 11:50 11/10/16 11:50 General appearance: Present: no acute distress - EENT Eyes: Present: PERRL, EOM intact ENT: hearing intact, clear oral mucosa, dentition normal - Neck Neck: Present: supple, normal ROM - Respiratory Respiratory effort: normal Respiratory: bilateral: CTA - Cardiovascular Rhythm: regular Heart Sounds: Present: S1 & S2. Absent: gallop, rub - Extremities Extremities: no ischemia, No edema, Full ROM - Abdominal General gastrointestinal: soft, non-tender, tender, non-distended, normal bowel sounds Localized gastrointestinal: tender: LLQ (mild) - Integumentary Integumentary: Present: clear, warm, dry - Neurologic Neurologic: CNII-XII intact, moves all extremities Results - Labs CBC & Chem 7: 11/10/16 04:30 11/10/16 04:30 Labs: Laboratory Last Values WBC 15.7 K/mm3 (4.5-11.0) H 11/10/16 04:30 RBC 3.17 M/mm3 (3.65-5.03) L 11/10/16 04:30 Hgb 9.7 gm/dl (10.1-14.3) L 11/10/16 04:30 Hct 30.2 % (30.3-42.9) L 11/10/16 04:30 MCV 95 fl (79-97) 11/10/16 04:30 MCH 31 pg (28-32) 11/10/16 04:30 MCHC 32 % (30-34) 11/10/16 04:30 RDW 16.2 % (13.2-15.2) H 11/10/16 04:30 Plt Count 309 K/mm3 (140-440) 11/10/16 04:30 Lymph % (Auto) Consulting It Architect 11/10/16 04:30 Castro % (Auto) Consulting It Architect 11/10/16 04:30 Eos % (Auto) Consulting It Architect 11/10/16 04:30 Baso % (Auto) Consulting It Architect 11/10/16 04:30 Lymph # Consulting It Architect 11/10/16 04:30 Castro # Consulting It Architect 11/10/16 04:30 Eos # Consulting It Architect 11/10/16 04:30 Baso # Consulting It Architect 11/10/16 04:30 Add Manual Diff Complete 11/10/16 04:30 Total Counted 100 11/10/16 04:30 Seg Neutrophils % Consulting It Architect 11/10/16 04:30 Seg Neuts % (Manual) 54.0 % (40.0-70.0) 11/10/16 04:30 Band Neutrophils % 13.0 % 11/10/16 04:30 Lymphocytes % (Manual) 15.0 % (13.4-35.0) 11/10/16 04:30 Reactive Lymphs % (Man) 1.0 % 11/10/16 04:30 Monocytes % (Manual) 3.0 % (0.0-7.3) 11/10/16 04:30 Eosinophils % (Manual) 3.0 % (0.0-4.3) 11/10/16 04:30 Basophils % (Manual) 0 % (0.0-1.8) 11/10/16 04:30 Metamyelocytes % 5.0 % 11/10/16 04:30 Myelocytes % 0 % 11/10/16 04:30 Promyelocytes % 6.0 % 11/10/16 04:30 Blast Cells % 0 % 11/10/16 04:30 Nucleated RBC % Not Reportable 11/10/16 04:30 Seg Neutrophils # Consulting It Architect 11/10/16 04:30 Seg Neutrophils # Man 8.5 K/mm3 (1.8-7.7) H 11/10/16 04:30 Band Neutrophils # 2.0 K/mm3 11/10/16 04:30 Lymphocytes # (Manual) 2.4 K/mm3 (1.2-5.4) 11/10/16 04:30 Abs React Lymphs (Man) 0.2 K/mm3 11/10/16 04:30 Monocytes # (Manual) 0.5 K/mm3 (0.0-0.8) 11/10/16 04:30 Eosinophils # (Manual) 0.5 K/mm3 (0.0-0.4) H 11/10/16 04:30 Basophils # (Manual) 0.0 K/mm3 (0.0-0.1) 11/10/16 04:30 Metamyelocytes # 0.8 K/mm3 11/10/16 04:30 Myelocytes # 0.0 K/mm3 11/10/16 04:30 Promyelocytes # 0.9 K/mm3 11/10/16 04:30 Blast Cells # 0.0 K/mm3 11/10/16 04:30 Pathologist Review 10/29/16 09:30 WBC Morphology Not Reportable 11/10/16 04:30 Hypersegmented Neuts Not Reportable 11/10/16 04:30 Hyposegmented Neuts Not Reportable 11/10/16 04:30 Hypogranular Neuts Not Reportable 11/10/16 04:30 Hypersegmented Polys TNR 10/17/16 07:08 Smudge Cells Few 11/10/16 04:30 Toxic Granulation Not Reportable 11/10/16 04:30 Toxic Vacuolation Not Reportable 11/10/16 04:30 Dohle Bodies Not Reportable 11/10/16 04:30 Pelger-Huet Anomaly Not Reportable 11/10/16 04:30 [place] Rods Not Reportable 11/10/16 04:30 Platelet Estimate Appears normal 11/10/16 04:30 Clumped Platelets Not Reportable 11/10/16 04:30 Plt Clumps, EDTA Not Reportable 11/10/16 04:30 Large Platelets Not Reportable 11/10/16 04:30 Giant Platelets Not Reportable 11/10/16 04:30 Platelet Satelliting Not Reportable 11/10/16 04:30 Plt Morphology Comment Not Reportable 11/10/16 04:30 RBC Morphology Not Reportable 11/10/16 04:30 Dimorphic RBCs Not Reportable 11/10/16 04:30 Polychromasia Rare 11/10/16 04:30 Hypochromasia Not Reportable 11/10/16 04:30 Poikilocytosis Not Reportable 11/10/16 04:30 Basophilic Stippling TNR 10/17/16 07:08 Anisocytosis 1+ 11/10/16 04:30 Microcytosis Not Reportable 11/10/16 04:30 Macrocytosis Not Reportable 11/10/16 04:30 Spherocytes Not Reportable 11/10/16 04:30 Pappenheimer Bodies Not Reportable 11/10/16 04:30 Sickle Cells Not Reportable 11/10/16 04:30 Target Cells Not Reportable 11/10/16 04:30 Tear Drop Cells Not Reportable 11/10/16 04:30 Ovalocytes Few 11/10/16 04:30 Stomatocytes Few 11/03/16 00:05 Helmet Cells Not Reportable 11/10/16 04:30 [place] Bodies Not Reportable 11/10/16 04:30 [place] Rings Not Reportable 11/10/16 04:30 Jeannette Cells Not Reportable 11/10/16 04:30 Bite Cells Not Reportable 11/10/16 04:30 Crenated Cell Not Reportable 11/10/16 04:30 Elliptocytes Not Reportable 11/10/16 04:30 Acanthocytes (Spur) Not Reportable 11/10/16 04:30 Rouleaux Not Reportable 11/10/16 04:30 Hemoglobin C Crystals Not Reportable 11/10/16 04:30 Schistocytes Not Reportable 11/10/16 04:30 Malaria parasites Not Reportable 11/10/16 04:30 David Bodies Not Reportable 11/10/16 04:30 Hem Pathologist Commnt No 11/10/16 04:30 PT 16.4 Sec. (12.2-14.9) H 10/17/16 16:07 INR 1.33 (0.87-1.13) H 10/17/16 16:07 APTT 38.8 Sec. (24.2-36.6) H 10/17/16 16:07 Heparin Anti-Xa Level 1.09 U.I./ml (0.3-0.7) H 11/10/16 04:30 POC ABG pH 7.353 (7.35-7.45) 11/09/16 15:24 POC ABG pCO2 33.8 (35-45) L 11/09/16 15:24 POC ABG pO2 131 (80-105) H 11/09/16 15:24 POC ABG HCO3 18.8 11/09/16 15:24 POC ABG Total CO2 20 11/09/16 15:24 POC ABG O2 Sat 99 11/09/16 15:24 POC ABG Base Excess -7 11/09/16 15:24 VBG pH 7.020 (7.320-7.420) L* 10/13/16 04:22 FiO2 28 % 11/09/16 15:24 Sodium 139 mmol/L (137-145) 11/10/16 04:30 Potassium 3.8 mmol/L (3.6-5.0) 11/10/16 04:30 Chloride 104.8 mmol/L (98-107) 11/10/16 04:30 Carbon Dioxide 19 mmol/L (22-30) L 11/10/16 04:30 Anion Gap 19 mmol/L 11/10/16 04:30 BUN 7 mg/dL (7-17) 11/10/16 04:30 Creatinine 0.6 mg/dL (0.7-1.2) L 11/10/16 04:30 Estimated GFR > 60 ml/min 11/10/16 04:30 BUN/Creatinine Ratio 11.66 % 11/10/16 04:30 Glucose 199 mg/dL (65-100) H 11/10/16 04:30 POC Glucose 242 (70-105) H 11/09/16 18:04 Osmolality 332 Mosm/kg 10/14/16 07:03 Lactic Acid 1.8 mmol/L (0.7-2.0) 10/14/16 07:03 Calcium 7.8 mg/dL (8.4-10.2) L 11/10/16 04:30 Phosphorus 2.7 mg/dL (2.5-4.5) D 10/21/16 Unknown Magnesium 1.2 mg/dL (1.7-2.3) L 11/03/16 00:05 Total Bilirubin 0.3 mg/dL (0.1-1.2) 11/05/16 02:30 AST 9 units/L (5-40) 11/05/16 02:30 ALT 11 units/L (7-56) 11/05/16 02:30 Alkaline Phosphatase 119 units/L (35-129) 11/05/16 02:30 Ammonia 35.0 umol/L (25-60) 10/13/16 05:40 Total Creatine Kinase 107 units/L (30-135) 10/13/16 04:22 CK-MB (CK-2) 3.1 ng/mL (0.0-4.0) 10/13/16 04:22 CK-MB (CK-2) Rel Index 2.8 (0-4) 10/13/16 04:22 Troponin T < 0.010 ng/mL (0.00-0.029) 10/14/16 18:55 C-Reactive Protein 10.50 mg/dL (0.00-1.30) H 10/13/16 16:14 Total Protein 6.7 g/dL (6.3-8.2) 11/05/16 02:30 Albumin 1.9 g/dL (3.9-5) L 11/05/16 02:30 Albumin/Globulin Ratio 0.4 % 11/05/16 02:30 Amylase 57 units/L (27-131) 10/26/16 20:00 Lipase 58 units/L (13-60) 10/26/16 20:00 Vitamin B12 976.8 pg/mL (211-911) H 10/22/16 10:25 TSH 0.162 mlU/mL (0.270-4.200) L 10/22/16 14:50 Free T4 0.77 ng/dL (0.76-1.46) 10/22/16 14:50 Urine Color Yellow (Yellow) 10/15/16 11:05 Urine Turbidity Cloudy (Clear) 10/15/16 11:05 Urine pH 5.0 (5.0-7.0) 10/15/16 11:05 Ur Specific [place] 1.009 (1.003-1.030) 10/15/16 11:05 Urine Protein 30 mg/dl mg/dL (Negative) 10/15/16 11:05 Urine Glucose (UA) 150 mg/dL (Negative) 10/15/16 11:05 Urine Ketones Neg mg/dL (Negative) 10/15/16 11:05 Urine Blood Lg (Negative) 10/15/16 11:05 Urine Nitrite Neg (Negative) 10/15/16 11:05 Urine Bilirubin Neg (Negative) 10/15/16 11:05 Urine Urobilinogen < 2.0 mg/dL (<2.0) 10/15/16 11:05 Ur Leukocyte Esterase Neg (Negative) 10/15/16 11:05 Urine WBC (Auto) 7.0 /HPF (0.0-6.0) H 10/15/16 11:05 Urine RBC (Auto) 7.0 /HPF (0.0-6.0) 10/15/16 11:05 U Epithel Cells (Auto) 1.0 /HPF (0-13.0) 10/15/16 11:05 Urine Mucus Few /HPF 10/15/16 11:05 Urine Yeast (Budding) 2+ /HPF 10/15/16 11:05 Urine Osmolality 487 Mosm/kg 10/13/16 Unknown Urine Creatinine < 4.2 mg/dL (0.1-20.0) 10/13/16 Unknown Protein/Creatinin Ratio 0.00 10/13/16 Unknown Urine Sodium 10 mEq/L 10/13/16 Unknown Urine Potassium 1.00 mEq/L 10/13/16 Unknown Urine Chloride 10.0 mEq/L (110-250) L 10/13/16 Unknown Urine Total Protein < 4 mg/dL (5-11.8) L 10/13/16 Unknown Vancomycin Trough 35.4 ug/mL (5.0-20.0) H 11/08/16 20:45 Random Vancomycin 26.4 ug/mL (0-40.0) 11/10/16 04:30 Ketones 107.3 mg/dL (0.2-2.8) H 10/13/16 04:22 Blood Type A POSITIVE 11/03/16 18:01 Antibody Screen Negative 11/03/16 18:01 Crossmatch See Detail 11/03/16 18:01
[2016-11-10 12:55] LABS: Amylase 30 units/L (27-131); Lipase 41 units/L (13-60)
--- NOTE | 2016-11-10 14:08 | Consultation ---
History of Present Illness Consult date: 11/10/16 Requesting physician: RENU HOOK Consult reason: tachycardia History of present illness: This is a 66-year-old Afro-[place]ese female with history of diabetes hypertension who has been hospital for several weeks initially presented with acute respiratory failure was intubated was found to be septic also right ischemic leg with) intervention and amputation below the knee patient in view of prolonged respiratory failure had tracheostomy and PEG tube placement. Patient also his right upper extremity DVT on heparin. Patient is being sepsis and has C. difficile. Patient has been having prolonged sinus tachycardia and the 110-20 range and cardiology consultation was called. Patient is awake and alert but unable to give history because of tracheostomy. In review of the chart patient has been supplemented with nutritional supplementations and BP control Past History Past Medical History: diabetes, hypertension, hyperlipidemia Past Surgical History: Other (left alina surgery for fracture repair and thyroid surgery per , status post trach status post PEG and right [id number] of dictation) Social history: Family history: no significant family history Medications and Allergies Allergies Allergy/AdvReac Type Severity Reaction Status Date / Time Penicillins Allergy Rash Verified 08/27/13 08:32 Home Medications Medication Instructions Recorded Confirmed Last Taken Type Insulin Aspart [NovoLOG Flexpen] 45 units SQ QPM 10/13/16 10/13/16 Unknown History Insulin Aspart [NovoLOG Flexpen] 50 units SQ QAM 10/13/16 10/13/16 Unknown History Insulin Detemir [Levemir VIAL] 20 unit SQ QHS 10/13/16 10/13/16 Unknown History Losartan [Cozaar] 25 mg PO QDAY 10/13/16 10/13/16 Unknown History Metoprolol [Lopressor] 25 mg PO BID 10/13/16 10/13/16 Unknown History Pregabalin [Lyrica] 75 mg PO BID 10/13/16 10/13/16 Unknown History Quetiapine Fumarate [Seroquel] 100 mg PO QHS 10/13/16 10/13/16 Unknown History amLODIPine [Norvasc] 5 mg PO DAILY 10/13/16 10/13/16 Unknown History clonazePAM [Klonopin] 1 mg PO BID PRN 10/13/16 10/13/16 Unknown History Active Meds: Active Medications Acetaminophen (Tylenol) 650 mg FEEDTUBE Q6H PRN PRN Reason: Pain, Mild (1-3) Last Admin: 11/09/16 16:12 Dose: 650 mg Lipase/Protease/Amylase (Pancreaze Dr 10,500 Unit) 1 each FEEDTUBE PRN PRN PRN Reason: For Clogged Feeding Tube Clopidogrel Bisulfate (Plavix) 75 mg PO QDAY JULI Last Admin: 11/10/16 10:00 Dose: 75 mg Dextrose (D50w (25gm)) 50 ml IV PRN PRN PRN Reason: Hypoglycemia Last Admin: 10/26/16 00:34 Dose: 50 ml Diltiazem HCl (Cardizem) 5 mg IV Q4H PRN PRN Reason: Tachyarrhythmias Last Admin: 11/10/16 09:08 Dose: 5 mg Famotidine (Pepcid) 20 mg PO BID JULI Last Admin: 11/10/16 10:00 Dose: 20 mg Hydromorphone HCl (Dilaudid) 0.5 mg IV Q3H PRN PRN Reason: Pain , Severe (7-10) Last Admin: 11/10/16 11:10 Dose: 0.5 mg Hydrophilic Ointment (Vaseline Lip Therapy) 1 applic TP Q2HR PRN PRN Reason: Dry Lips Last Admin: 11/04/16 12:41 Dose: 1 applic Midazolam HCl (Versed/Ns 100mg/100ml) 100 mg in 100 mls @ 1 mls/hr IV TITR JULI ; 1 MG/HR PRN Reason: Protocol Last Titration: 11/08/16 14:00 Dose: 0 mg/hr, 0 mls/hr Fentanyl Citrate (Fentanyl Drip Premix) 2,000 mcg in 100 mls @ 4.082 mls/hr IV TITR JULI; 1 MCG/KG/HR PRN Reason: Protocol Last Admin: 11/10/16 10:32 Dose: 3 mcg/kg/hr, 12.247 mls/hr Heparin Sodium/Sodium Chloride (Heparin/ 0.45% Nacl-25,000 Unit/500 Ml) 25,000 units in 500 mls @ 24 mls/hr IV TITR JULI; 1,200 UNITS/HR PRN Reason: Protocol Last Titration: 11/10/16 06:30 Dose: 0 units/hr, 0 mls/hr Clindamycin HCl (Cleocin 600 Mg/50 Ml) 600 mg in 50 mls @ 100 mls/hr IV Q8HR [facility] PRN Reason: Protocol Stop: 11/11/16 23:59 Last Admin: 11/10/16 06:10 Dose: 100 mls/hr Levofloxacin/Dextrose (Levaquin 750mg/150ml) 750 mg in 150 mls @ 100 mls/hr IV Q24H [facility] PRN Reason: Protocol Last Admin: 11/09/16 21:46 Dose: 100 mls/hr Insulin Human Regular (Novolin R) 0 units SUB-Q Q6HR [facility] PRN Reason: Protocol Last Admin: 11/10/16 07:38 Dose: 3 units Metoclopramide HCl (Reglan) 5 mg IV Q6HR [facility] Last Admin: 11/10/16 12:42 Dose: 5 mg Metoprolol Tartrate (Lopressor) 25 mg FEEDTUBE Q8H [facility] Last Admin: 11/10/16 07:37 Dose: 25 mg Metoprolol Tartrate (Lopressor) 5 mg IV Q4H PRN PRN Reason: hr greater than 130 Multi-Ingred Cream/Lotion/Oil/Oint (Artificial Tears Ophth Oint) 1 applic OU Q4HR PRN PRN Reason: Dry Eye(s) Ondansetron HCl (Zofran) 4 mg IV Q8H PRN PRN Reason: N/V unrelieved by Reglan Last Admin: 11/09/16 05:00 Dose: 4 mg Quetiapine Fumarate (Seroquel) 50 mg PO BID [facility] Last Admin: 11/10/16 10:00 Dose: 50 mg Simple Syrup (Simple Syrup) 15 ml FEEDTUBE PRN PRN PRN Reason: Hypoglycemia Simple Syrup (Simple Syrup) 30 ml FEEDTUBE PRN PRN PRN Reason: Hypoglycemia Sodium Bicarbonate (Sodium Bicarbonate) 325 mg FEEDTUBE PRN PRN PRN Reason: For Clogged Feeding Tube Vancomycin HCl (Vancomycin Pharmacy To Dose) 1 each IV PKCONSULT [facility] PRN Reason: Protocol Review of Systems ROS unobtainable: due to endotracheal tube All systems: negative Physical Examination Vital Signs Pulse Resp BP Pulse Ox 120 H 32 H 104/78 99 10/13/16 04:04 10/13/16 04:04 10/13/16 04:04 10/13/16 04:04 General appearance: no acute distress HEENT: Positive: PERRL, EOMI Neck: Positive: Other (trach) Cardiac: Positive: Tachycardia Lungs: Positive: clear to auscultation Neuro: Positive: Grossly Intact Abdomen: Positive: Soft Female genitourinary: deferred Extremities: Present: Other (right below-knee amputation left leg no edema) Results 11/10/16 04:30 11/10/16 04:30 CBC 11/10/16 Range/Units 04:30 WBC 15.7 H (4.5-11.0) K/mm3 RBC 3.17 L (3.65-5.03) M/mm3 Hgb 9.7 L (10.1-14.3) gm/dl Hct 30.2 L (30.3-42.9) % Plt Count 309 (140-440) K/mm3 Lymph # Catering Sous Chef Snyder # Catering Sous Chef Eos # Catering Sous Chef Baso # Catering Sous Chef Comprehensive Metabolic Panel 11/10/16 Range/Units 04:30 Sodium 139 (137-145) mmol/L Potassium 3.8 (3.6-5.0) mmol/L Chloride 104.8 (98-107) mmol/L Carbon Dioxide 19 L (22-30) mmol/L BUN 7 (7-17) mg/dL Creatinine 0.6 L (0.7-1.2) mg/dL Glucose 199 H (65-100) mg/dL Calcium 7.8 L (8.4-10.2) mg/dL - Imaging and Cardiology Echo: report reviewed (tds 10/24/2016 normal LV function with no significant regurgitations) EKG interpretations - Telemetry EKG Rhythm: Sinus Tachycardia (sinus tachycardia with nonspecific ST-T) Assessment and Plan Sinus tachycardia Respiratory failure status post trach Anemia Sepsis Hypokalemia Malnutrition Peripheral vascular disease status post right BKA Right upper extremity DVT Recommend from cardiovascular point of view may increase the metoprolol but sinus tachycardia is multifactorial physiological nature in view of patient's anemia sepsis respiratory failure at this time no obvious evidence of H fibrillation noted. Continue current management a shows normal LV function echocardiogram
--- NOTE | 2016-11-10 16:41 | Progress Note ---
Subjective Date of service: 11/10/16 Principal diagnosis: respiratory failure on mechanical ventilatory support, DKA Interval history: AWAKE. Fever resolving S/P surgery. Vital signs - Temp 99 CHEST - GOOD AIR ENTRY CVS - S1S2 ABD - BS_ LABS See lab section. ASSESSMENT 1. Sepsis 2. dka 3. resp failure 4. htn 5. clostridium difficile colitis 6. bilateral pneumonia 6. RIGHT LEG GANGRENE s/p amputation RECOMMENDATION 1. CONTINUE IV clindamycin. Levaquin iv restarted. Continue iv vancomycin 2. cbc/bmp in am Objective - Constitutional Vitals: Vital Signs Temp Pulse Resp BP Pulse Ox 99.3 F 130 H 19 173/101 98 11/10/16 12:00 11/10/16 13:00 11/10/16 13:00 11/10/16 13:00 11/10/16 13:00 Temperature -Last 24 Hours Temperature 99.3 F Temperature 99.3 F Temperature 98.3 F Temperature 98.8 F Temperature 99.5 F - Labs CBC & Chem 7: 11/10/16 04:30 11/10/16 04:30 Labs: Abnormal lab results 11/09/16 11/10/16 11/10/16 Range/Units 18:04 04:30 04:30 WBC 15.7 H (4.5-11.0) K/mm3 RBC 3.17 L (3.65-5.03) M/mm3 Hgb 9.7 L (10.1-14.3) gm/dl Hct 30.2 L (30.3-42.9) % RDW 16.2 H (13.2-15.2) % Seg Neutrophils # Man 8.5 H (1.8-7.7) K/mm3 Eosinophils # (Manual) 0.5 H (0.0-0.4) K/mm3 Heparin Anti-Xa Level (0.3-0.7) U.I./ml Carbon Dioxide 19 L (22-30) mmol/L Creatinine 0.6 L (0.7-1.2) mg/dL Glucose 199 H (65-100) mg/dL POC Glucose 242 H (70-105) Calcium 7.8 L (8.4-10.2) mg/dL 11/10/16 11/10/16 Range/Units 04:30 11:32 WBC (4.5-11.0) K/mm3 RBC (3.65-5.03) M/mm3 Hgb (10.1-14.3) gm/dl Hct (30.3-42.9) % RDW (13.2-15.2) % Seg Neutrophils # Man (1.8-7.7) K/mm3 Eosinophils # (Manual) (0.0-0.4) K/mm3 Heparin Anti-Xa Level 1.09 H (0.3-0.7) U.I./ml Carbon Dioxide (22-30) mmol/L Creatinine (0.7-1.2) mg/dL Glucose (65-100) mg/dL POC Glucose 211 H (70-105) Calcium (8.4-10.2) mg/dL
[2016-11-10] MEDS: LEVAQUIN 750MG/150ML 750 MG/150 ML BAG IV SCH (22:03)
[2016-11-11] MEDS: fentaNYL DRIP Premix 2,000 MCG/100 ML BAG IV SCH ×3 (00:33→22:31)
[2016-11-11 06:52] LABS: Basophils % (Auto) 0.4 % (0.0-1.8); Eosinophils % (Auto) 0.2 % (0.0-4.3); Hematocrit 27.2 % (30.3-42.9); Hemoglobin 8.7 gm/dl (10.1-14.3); Mean Corpuscular HGB Conc 32 % (30-34); Mean Corpuscular Hemoglobin 30 pg (28-32); Mean Corpuscular Volume 95 fl (79-97); Platelet Count 311 K/mm3 (140-440); Red Blood Count 2.87 M/mm3 (3.65-5.03); Red Cell Distribution Width 16.4 % (13.2-15.2); White Blood Count 13.3 K/mm3 (4.5-11.0)
[2016-11-11 07:17] LABS: Anion Gap 18 mmol/L; Blood Urea Nitrogen 7 mg/dL (7-17); Calcium 7.6 mg/dL (8.4-10.2); Carbon Dioxide 19 mmol/L (22-30); Chloride 104.5 mmol/L (98-107); Glucose 84 mg/dL (65-100); Potassium 3.2 mmol/L (3.6-5.0); Sodium 138 mmol/L (137-145)
[2016-11-11] MEDS: LOPRESSOR FEEDTUBE SCH ×2 (07:45→15:25)
[2016-11-11] MEDS: REGLAN IV SCH ×3 (07:45→17:31)
[2016-11-11] MEDS: CLEOCIN 600 MG/50 mL 600 MG/50 ML BAG IV SCH ×3 (07:46→22:00)
--- NOTE | 2016-11-11 09:23 | Progress Note ---
Assessment and Plan Sinus tachycardia Respiratory failure status post trach Anemia Sepsis Hypokalemia Malnutrition Peripheral vascular disease status post right BKA Right upper extremity DVT rec: Continue metoprolol 50 mg every 8 hours patient's heart rate has improved pressure has improved also but sinus tachycardia is multifactorial given patient 's multiple medical problems and has normal LV function Subjective Date of service: 11/11/16 Principal diagnosis: respiratory failure on mechanical ventilatory support, DKA Interval history: Patient lying in bed no acute distress Objective Vital Signs Temp Pulse Pulse Pulse Pulse Resp Resp 11/11/16 08:00 99.3 F 100 H 109 H 109 H 22 11/11/16 07:45 110 H 11/11/16 07:00 117 H 26 H 11/11/16 06:00 117 H 20 11/11/16 05:00 108 H 23 11/11/16 04:00 99.0 F 107 H 21 11/11/16 03:07 106 H 11/11/16 03:00 102 H 26 H 11/11/16 02:00 100 H 26 H 11/11/16 01:00 98 H 16 11/11/16 00:00 116 H 25 H 11/10/16 23:54 119 H 30 H 11/10/16 23:48 98.9 F 11/10/16 23:40 11/10/16 23:38 123 H 11/10/16 23:00 119 H 20 11/10/16 22:04 122 H 11/10/16 22:00 122 H 25 H 25 H 11/10/16 21:00 124 H 31 H 11/10/16 20:00 125 H 123 H 123 H 38 H 11/10/16 19:53 11/10/16 19:50 121 H 11/10/16 19:39 98.8 F 11/10/16 19:00 114 H 32 H 11/10/16 18:00 146 H 37 H 11/10/16 17:51 149 H 11/10/16 17:00 145 H 33 H 11/10/16 16:00 98.3 F 141 H 33 H 11/10/16 15:00 11/10/16 14:00 121 H 17 11/10/16 13:00 130 H 19 11/10/16 12:00 99.3 F 114 H 13 11/10/16 11:50 114 H 11/10/16 11:00 114 H 20 03/25/17 10:00 117 H 25 H 11/10/16 09:50 119 H 28 H BP Pulse Ox Pulse Ox 11/11/16 08:00 130/75 98 11/11/16 07:45 126/61 11/11/16 07:00 134/79 97 11/11/16 06:00 132/77 99 11/11/16 05:00 126/78 98 11/11/16 04:00 103/73 98 11/11/16 03:07 124/64 98 11/11/16 03:00 124/64 98 11/11/16 02:00 111/63 97 11/11/16 01:00 105/61 95 11/11/16 00:00 136/77 96 11/10/16 23:54 133/74 95 11/10/16 23:48 11/10/16 23:40 96 11/10/16 23:38 133/74 96 11/10/16 23:00 148/92 94 11/10/16 22:04 154/89 11/10/16 22:00 154/89 94 11/10/16 21:00 161/84 95 11/10/16 20:00 157/94 97 11/10/16 19:53 96 11/10/16 19:50 157/94 96 11/10/16 19:39 11/10/16 19:00 131/92 97 11/10/16 18:00 185/115 93 11/10/16 17:51 11/10/16 17:00 207/104 11/10/16 16:00 166/98 95 95 11/10/16 15:00 163/82 96 11/10/16 14:00 124/71 100 11/10/16 13:00 173/101 98 11/10/16 12:00 200/89 99 11/10/16 11:50 200/89 99 11/10/16 11:00 193/94 98 11/10/16 10:00 162/90 99 11/10/16 09:50 171/108 99 - Physical Examination HEENT: Positive: PERRL, EOMI Neck: Positive: Other (trach) Cardiac: Positive: Tachycardia Lungs: Positive: Decreased Breath Sounds Neuro: Positive: Grossly Intact Abdomen: Positive: Soft Extremities: Present: Other (right below-knee amputation left leg no edema) - Labs and Meds CBC 11/11/16 Range/Units 06:15 WBC 13.3 H (4.5-11.0) K/mm3 RBC 2.87 L (3.65-5.03) M/mm3 Hgb 8.7 L (10.1-14.3) gm/dl Hct 27.2 L (30.3-42.9) % Plt Count 311 (140-440) K/mm3 Lymph # 1.8 (1.2-5.4) K/mm3 [place] # 0.9 H (0.0-0.8) K/mm3 Eos # 0.0 (0.0-0.4) K/mm3 Baso # 0.1 (0.0-0.1) K/mm3 Comprehensive Metabolic Panel 11/11/16 Range/Units 06:15 Sodium 138 (137-145) mmol/L Potassium 3.2 L (3.6-5.0) mmol/L Chloride 104.5 (98-107) mmol/L Carbon Dioxide 19 L (22-30) mmol/L BUN 7 (7-17) mg/dL Creatinine 0.7 (0.7-1.2) mg/dL Glucose 84 (65-100) mg/dL Calcium 7.6 L (8.4-10.2) mg/dL - Imaging and Cardiology Echo: report reviewed (tds 10/24/2016 normal LV function with no significant regurgitations) - Telemetry EKG Rhythm: Sinus Tachycardia (heart rate improved to 90-110) - Allied health notes Allied health notes reviewed: RT
[2016-11-11] MEDS: PLAVIX PO SCH (10:52)
[2016-11-11] MEDS: PEPCID PO SCH ×2 (10:53→22:35)
[2016-11-11] MEDS: HEPARIN/ 0.45% NACL-25,000 UNIT/500 ML 25,000 UNITS/500 ML BAG IV SCH (11:01)
--- NOTE | 2016-11-11 11:32 | Progress Note ---
Assessment and Plan Assessment and plan: 1. Acute respiratory failure with hypercapnia. Vent supported. s/p Trach and PEG. Continue with bronchodilators and wean as tolerated. 2. Diabetes mellitus type II. DKA resolved. Continue Sliding scale insulin 3. Sepsis- Leukocytosis Improving Suspected due to UTI, urine has only grown Paula, sputum cultures grew group B strep, continue broad-spectrum antibiotics, infectious disease input appreciated 4. 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/right lower extremity gangrene. The patient is status post recent right below the knee amputation. Patient currently on heparin drip. 5. Hypokalemia: Supplement potassium as needed 6. Toxic metabolic encephalopathy. Continue supportive care. 7. Sinus Tachycardia. Physiologic secondary to sepsis. 8. Anemia. Multifactorial including sepsis. s/p transfusion of PRBCs. Continue to follow H&H. 9. RUE DVT. Patient currently on heparin drip. 10. Abdominal pain. KUB pending. Continue NG tube to suction. History Interval history: No new issues overnight. No complaints of abdominal pain. NG tube with suction produced 500 mL of initially yellow gastric fluid that has now turned bilious per nursing Hospitalist Physical - Constitutional Vitals: Temp Pulse Resp BP Pulse Ox 99.3 F 104 H 17 132/73 98 11/11/16 08:00 11/11/16 10:00 11/11/16 10:00 11/11/16 10:00 11/11/16 10:00 General appearance: Present: no acute distress - EENT Eyes: Present: PERRL, EOM intact ENT: hearing intact, clear oral mucosa, dentition normal - Neck Neck: Present: supple, normal ROM - Respiratory Respiratory effort: normal Respiratory: bilateral: CTA - Cardiovascular Rhythm: regular Heart Sounds: Present: S1 & S2. Absent: gallop, rub - Extremities Extremities: no ischemia, No edema, Full ROM - Abdominal General gastrointestinal: soft, tender, non-distended, normal bowel sounds Localized gastrointestinal: tender: diffuse (mild) - Integumentary Integumentary: Present: clear, warm, dry - Neurologic Neurologic: CNII-XII intact, moves all extremities Results - Labs CBC & Chem 7: 11/11/16 06:15 11/11/16 06:15 Labs: Laboratory Last Values WBC 13.3 K/mm3 (4.5-11.0) H 11/11/16 06:15 RBC 2.87 M/mm3 (3.65-5.03) L 11/11/16 06:15 Hgb 8.7 gm/dl (10.1-14.3) L 11/11/16 06:15 Hct 27.2 % (30.3-42.9) L 11/11/16 06:15 MCV 95 fl (79-97) 11/11/16 06:15 MCH 30 pg (28-32) 11/11/16 06:15 MCHC 32 % (30-34) 11/11/16 06:15 RDW 16.4 % (13.2-15.2) H 11/11/16 06:15 Plt Count 311 K/mm3 (140-440) 11/11/16 06:15 Lymph % (Auto) 13.8 % (13.4-35.0) 11/11/16 06:15 [place] % (Auto) 6.7 % (0.0-7.3) 11/11/16 06:15 Eos % (Auto) 0.2 % (0.0-4.3) 11/11/16 06:15 Baso % (Auto) 0.4 % (0.0-1.8) 11/11/16 06:15 Lymph # 1.8 K/mm3 (1.2-5.4) 11/11/16 06:15 [place] # 0.9 K/mm3 (0.0-0.8) H 11/11/16 06:15 Eos # 0.0 K/mm3 (0.0-0.4) 11/11/16 06:15 Baso # 0.1 K/mm3 (0.0-0.1) 11/11/16 06:15 Add Manual Diff Complete 11/10/16 04:30 Total Counted 100 11/10/16 04:30 Seg Neutrophils % 78.9 % (40.0-70.0) H 11/11/16 06:15 Seg Neuts % (Manual) 54.0 % (40.0-70.0) 11/10/16 04:30 Band Neutrophils % 13.0 % 11/10/16 04:30 Lymphocytes % (Manual) 15.0 % (13.4-35.0) 11/10/16 04:30 Reactive Lymphs % (Man) 1.0 % 11/10/16 04:30 Monocytes % (Manual) 3.0 % (0.0-7.3) 11/10/16 04:30 Eosinophils % (Manual) 3.0 % (0.0-4.3) 11/10/16 04:30 Basophils % (Manual) 0 % (0.0-1.8) 11/10/16 04:30 Metamyelocytes % 5.0 % 11/10/16 04:30 Myelocytes % 0 % 11/10/16 04:30 Promyelocytes % 6.0 % 11/10/16 04:30 Blast Cells % 0 % 11/10/16 04:30 Nucleated RBC % Not Reportable 11/10/16 04:30 Seg Neutrophils # 10.5 K/mm3 (1.8-7.7) H 11/11/16 06:15 Seg Neutrophils # Man 8.5 K/mm3 (1.8-7.7) H 11/10/16 04:30 Band Neutrophils # 2.0 K/mm3 11/10/16 04:30 Lymphocytes # (Manual) 2.4 K/mm3 (1.2-5.4) 11/10/16 04:30 Abs React Lymphs (Man) 0.2 K/mm3 11/10/16 04:30 Monocytes # (Manual) 0.5 K/mm3 (0.0-0.8) 11/10/16 04:30 Eosinophils # (Manual) 0.5 K/mm3 (0.0-0.4) H 11/10/16 04:30 Basophils # (Manual) 0.0 K/mm3 (0.0-0.1) 11/10/16 04:30 Metamyelocytes # 0.8 K/mm3 11/10/16 04:30 Myelocytes # 0.0 K/mm3 11/10/16 04:30 Promyelocytes # 0.9 K/mm3 11/10/16 04:30 Blast Cells # 0.0 K/mm3 11/10/16 04:30 Pathologist Review 10/29/16 09:30 WBC Morphology Not Reportable 11/10/16 04:30 Hypersegmented Neuts Not Reportable 11/10/16 04:30 Hyposegmented Neuts Not Reportable 11/10/16 04:30 Hypogranular Neuts Not Reportable 11/10/16 04:30 Hypersegmented Polys TNR 10/17/16 07:08 Smudge Cells Few 11/10/16 04:30 Toxic Granulation Not Reportable 11/10/16 04:30 Toxic Vacuolation Not Reportable 11/10/16 04:30 Dohle Bodies Not Reportable 11/10/16 04:30 Pelger-Huet Anomaly Not Reportable 11/10/16 04:30 [place] Rods Not Reportable 11/10/16 04:30 Platelet Estimate Appears normal 11/10/16 04:30 Clumped Platelets Not Reportable 11/10/16 04:30 Plt Clumps, EDTA Not Reportable 11/10/16 04:30 Large Platelets Not Reportable 11/10/16 04:30 Giant Platelets Not Reportable 11/10/16 04:30 Platelet Satelliting Not Reportable 11/10/16 04:30 Plt Morphology Comment Not Reportable 11/10/16 04:30 RBC Morphology Not Reportable 11/10/16 04:30 Dimorphic RBCs Not Reportable 11/10/16 04:30 Polychromasia Rare 11/10/16 04:30 Hypochromasia Not Reportable 11/10/16 04:30 Poikilocytosis Not Reportable 11/10/16 04:30 Basophilic Stippling TNR 10/17/16 07:08 Anisocytosis 1+ 11/10/16 04:30 Microcytosis Not Reportable 11/10/16 04:30 Macrocytosis Not Reportable 11/10/16 04:30 Spherocytes Not Reportable 11/10/16 04:30 Pappenheimer Bodies Not Reportable 11/10/16 04:30 Sickle Cells Not Reportable 11/10/16 04:30 Target Cells Not Reportable 11/10/16 04:30 Tear Drop Cells Not Reportable 11/10/16 04:30 Ovalocytes Few 11/10/16 04:30 Stomatocytes Few 11/03/16 00:05 Helmet Cells Not Reportable 11/10/16 04:30 [place] Bodies Not Reportable 11/10/16 04:30 [place] Rings Not Reportable 11/10/16 04:30 Jeannette Cells Not Reportable 11/10/16 04:30 Bite Cells Not Reportable 11/10/16 04:30 Crenated Cell Not Reportable 11/10/16 04:30 Elliptocytes Not Reportable 11/10/16 04:30 Acanthocytes (Spur) Not Reportable 11/10/16 04:30 Rouleaux Not Reportable 11/10/16 04:30 Hemoglobin C Crystals Not Reportable 11/10/16 04:30 Schistocytes Not Reportable 11/10/16 04:30 Malaria parasites Not Reportable 11/10/16 04:30 David Bodies Not Reportable 11/10/16 04:30 Hem Pathologist Commnt No 11/10/16 04:30 PT 16.4 Sec. (12.2-14.9) H 10/17/16 16:07 INR 1.33 (0.87-1.13) H 10/17/16 16:07 APTT 38.8 Sec. (24.2-36.6) H 10/17/16 16:07 Heparin Anti-Xa Level 0.85 U.I./ml (0.3-0.7) H 11/10/16 18:00 POC ABG pH 7.353 (7.35-7.45) 11/09/16 15:24 POC ABG pCO2 33.8 (35-45) L 11/09/16 15:24 POC ABG pO2 131 (80-105) H 11/09/16 15:24 POC ABG HCO3 18.8 11/09/16 15:24 POC ABG Total CO2 20 11/09/16 15:24 POC ABG O2 Sat 99 11/09/16 15:24 POC ABG Base Excess -7 11/09/16 15:24 VBG pH 7.020 (7.320-7.420) L* 10/13/16 04:22 FiO2 28 % 11/09/16 15:24 Sodium 138 mmol/L (137-145) 11/11/16 06:15 Potassium 3.2 mmol/L (3.6-5.0) L 11/11/16 06:15 Chloride 104.5 mmol/L (98-107) 11/11/16 06:15 Carbon Dioxide 19 mmol/L (22-30) L 11/11/16 06:15 Anion Gap 18 mmol/L 11/11/16 06:15 BUN 7 mg/dL (7-17) 11/11/16 06:15 Creatinine 0.7 mg/dL (0.7-1.2) 11/11/16 06:15 Estimated GFR > 60 ml/min 11/11/16 06:15 BUN/Creatinine Ratio 10.00 % 11/11/16 06:15 Glucose 84 mg/dL (65-100) 11/11/16 06:15 POC Glucose 117 (70-105) H 11/11/16 05:56 Osmolality 332 Mosm/kg 10/14/16 07:03 Lactic Acid 1.8 mmol/L (0.7-2.0) 10/14/16 07:03 Calcium 7.6 mg/dL (8.4-10.2) L 11/11/16 06:15 Phosphorus 2.7 mg/dL (2.5-4.5) D 10/21/16 Unknown Magnesium 1.2 mg/dL (1.7-2.3) L 11/03/16 00:05 Total Bilirubin 0.3 mg/dL (0.1-1.2) 11/05/16 02:30 AST 9 units/L (5-40) 11/05/16 02:30 ALT 11 units/L (7-56) 11/05/16 02:30 Alkaline Phosphatase 119 units/L (35-129) 11/05/16 02:30 Ammonia 35.0 umol/L (25-60) 10/13/16 05:40 Total Creatine Kinase 107 units/L (30-135) 10/13/16 04:22 CK-MB (CK-2) 3.1 ng/mL (0.0-4.0) 10/13/16 04:22 CK-MB (CK-2) Rel Index 2.8 (0-4) 10/13/16 04:22 Troponin T < 0.010 ng/mL (0.00-0.029) 10/14/16 18:55 C-Reactive Protein 10.50 mg/dL (0.00-1.30) H 10/13/16 16:14 Total Protein 6.7 g/dL (6.3-8.2) 11/05/16 02:30 Albumin 1.9 g/dL (3.9-5) L 11/05/16 02:30 Albumin/Globulin Ratio 0.4 % 11/05/16 02:30 Amylase 30 units/L (27-131) 11/10/16 04:30 Lipase 41 units/L (13-60) 11/10/16 04:30 Vitamin B12 976.8 pg/mL (211-911) H 10/22/16 10:25 TSH 0.162 mlU/mL (0.270-4.200) L 10/22/16 14:50 Free T4 0.77 ng/dL (0.76-1.46) 10/22/16 14:50 Urine Color Yellow (Yellow) 10/15/16 11:05 Urine Turbidity Cloudy (Clear) 10/15/16 11:05 Urine pH 5.0 (5.0-7.0) 10/15/16 11:05 Ur Specific [place] 1.009 (1.003-1.030) 10/15/16 11:05 Urine Protein 30 mg/dl mg/dL (Negative) 10/15/16 11:05 Urine Glucose (UA) 150 mg/dL (Negative) 10/15/16 11:05 Urine Ketones Neg mg/dL (Negative) 10/15/16 11:05 Urine Blood Lg (Negative) 10/15/16 11:05 Urine Nitrite Neg (Negative) 10/15/16 11:05 Urine Bilirubin Neg (Negative) 10/15/16 11:05 Urine Urobilinogen < 2.0 mg/dL (<2.0) 10/15/16 11:05 Ur Leukocyte Esterase Neg (Negative) 10/15/16 11:05 Urine WBC (Auto) 7.0 /HPF (0.0-6.0) H 10/15/16 11:05 Urine RBC (Auto) 7.0 /HPF (0.0-6.0) 10/15/16 11:05 U Epithel Cells (Auto) 1.0 /HPF (0-13.0) 10/15/16 11:05 Urine Mucus Few /HPF 10/15/16 11:05 Urine Yeast (Budding) 2+ /HPF 10/15/16 11:05 Urine Osmolality 487 Mosm/kg 10/13/16 Unknown Urine Creatinine < 4.2 mg/dL (0.1-20.0) 10/13/16 Unknown Protein/Creatinin Ratio 0.00 10/13/16 Unknown Urine Sodium 10 mEq/L 10/13/16 Unknown Urine Potassium 1.00 mEq/L 10/13/16 Unknown Urine Chloride 10.0 mEq/L (110-250) L 10/13/16 Unknown Urine Total Protein < 4 mg/dL (5-11.8) L 10/13/16 Unknown Vancomycin Trough 35.4 ug/mL (5.0-20.0) H 11/08/16 20:45 Random Vancomycin 19.4 ug/mL (0-40.0) 11/11/16 06:15 Ketones 107.3 mg/dL (0.2-2.8) H 10/13/16 04:22 Blood Type A POSITIVE 11/03/16 18:01 Antibody Screen Negative 11/03/16 18:01 Crossmatch See Detail 11/03/16 18:01
--- NOTE | 2016-11-11 12:03 | XRay Report ---
KUB: 11/10/16 12:11:00 CLINICAL: Abdominal pain. FINDINGS: The stomach is greatly distended with air. There is a gastrostomy tube appears satisfactory. Surgical clips in the right upper quadrant. The small and large bowel are nondistended. However, not all of the bowel is included on the exam. No pneumoperitoneum. No mass or suspicious calcifications. The bones and soft tissues are unremarkable. IMPRESSION: Gastric distention but otherwise negative.
[2016-11-11] MEDS ORDERED: TYLENOL PR PRN (13:06)
--- NOTE | 2016-11-11 13:41 | Progress Note ---
Assessment and Plan - Patient Problems (1) Acute respiratory failure with hypercapnia Current Visit: Yes Status: Acute Plan to address problem: - continue aspiration precautions / VAP bundles - continue bronchodilators and pulmonary toilet - wean oxygen to keep sats > 94% - CXR pending - daily bedside SBT's as tolerated (2) Altered mental status Current Visit: Yes Status: Acute Qualifiers: Altered mental status type: A Coma depth: C Coma timing: C Plan to address problem: - no active seizures - following clinically - seen by neurology and will follow their recommendations - no seizures on EEG - more appropriate clinically (3) LUCY (acute kidney injury) Current Visit: Yes Status: Acute Plan to address problem: - resolved - following I's & O's (4) DKA (diabetic ketoacidoses) Current Visit: Yes Status: Acute Qualifiers: Diabetes mellitus type: D Diabetes mellitus complication detail: D Plan to address problem: - resolved - continue SSI (5) Sepsis Current Visit: No Status: Acute Qualifiers: Sepsis type: S Plan to address problem: - continue anti-infectives per ID recs - follow clinically (improved) - trend lactate and CRP prn - improving numbers post amputation (6) Emesis Current Visit: Yes Status: Acute Qualifiers: Vomiting type: V Vomiting Intractability: V Nausea presence: N Plan to address problem: (KUB with gastric and some bowel dialatation) - NGT to LIS - increased reglan dose - reduce fentanyl dose and use other sedative (re: opiates and G.I. motility) - continue aspiration precautions (7) Discharge planning issues Current Visit: No Status: Acute Plan to address problem: ...hopefully weans well, tolerates t-piece and can soon transfer out of ICU ...for now remains critically ill on life sustaining treatments including MVS and at high risk for further deterioration including ...30' CCT Subjective Date of service: 11/11/16 Principal diagnosis: respiratory failure on mechanical ventilatory support, DKA Interval history: Seen and examined at bedside; 24 hour events reviewed; nursing and respiratory care staff consulted; no adverse overnight events reported to me; still tenuously tolerating weaning; no acute chest pain; + emesis Objective Vital Signs - 12hr 11/11/16 11/11/16 11/11/16 02:00 03:00 03:07 Temperature Pulse Rate 100 H 102 H 106 H Pulse Rate [ Apical] Pulse Rate [ Left Posterior Tibial] Respiratory 26 H 26 H Rate Blood Pressure 111/63 124/64 124/64 O2 Sat by Pulse 97 98 98 Oximetry O2 Sat by Pulse Oximetry [ Assessment] 11/11/16 11/11/16 11/11/16 04:00 05:00 06:00 Temperature 99.0 F Pulse Rate 107 H 108 H 117 H Pulse Rate [ Apical] Pulse Rate [ Left Posterior Tibial] Respiratory 21 23 20 Rate Blood Pressure 103/73 126/78 132/77 O2 Sat by Pulse 98 98 99 Oximetry O2 Sat by Pulse Oximetry [ Assessment] 11/11/16 11/11/16 11/11/16 07:00 07:45 08:00 Temperature 99.3 F Pulse Rate 117 H 110 H 100 H Pulse Rate [ 109 H Apical] Pulse Rate [ 109 H Left Posterior Tibial] Respiratory 26 H 22 Rate Blood Pressure 134/79 126/61 130/75 O2 Sat by Pulse 97 98 Oximetry O2 Sat by Pulse 99 Oximetry [ Assessment] 11/11/16 11/11/16 11/11/16 09:00 09:30 09:45 Temperature Pulse Rate 101 H 104 H Pulse Rate [ Apical] Pulse Rate [ Left Posterior Tibial] Respiratory 18 26 H Rate Blood Pressure 130/75 134/80 O2 Sat by Pulse 98 100 100 Oximetry O2 Sat by Pulse Oximetry [ Assessment] 11/11/16 11/11/16 11/11/16 10:00 11:00 11:36 Temperature Pulse Rate 104 H 111 H Pulse Rate [ Apical] Pulse Rate [ Left Posterior Tibial] Respiratory 17 25 H Rate Blood Pressure 132/73 141/85 O2 Sat by Pulse 98 100 112 H Oximetry O2 Sat by Pulse Oximetry [ Assessment] 11/11/16 12:00 Temperature 101.9 F H Pulse Rate Pulse Rate [ Apical] Pulse Rate [ Left Posterior Tibial] Respiratory Rate Blood Pressure O2 Sat by Pulse Oximetry O2 Sat by Pulse Oximetry [ Assessment] Constitutional: no acute distress, other (sedated) Eyes: non-icteric ENT: oropharynx moist Neck: supple, no lymphadenopathy Effort: mildly labored Ascultation: Bilateral: diminished breath sounds, rales Cardiovascular: regular rate and rhythm, other (tachycardia) Gastrointestinal: normoactive bowel sounds, soft, non-tender, non-distended Integumentary: normal Extremities: no cyanosis, no edema, no ischemia or petechiae, other (s/p right BKA) Neurologic: non-focal exam (grossly), pupils equal and round, other (sedated) Psychiatric: other (sedated) CBC and BMP: 11/14/16 04:42 11/14/16 04:42 ABG, PT/INR, D-dimer: ABG POC ABG pH 7.353 (7.35-7.45) 11/09/16 15:24 POC ABG pCO2 33.8 (35-45) L 11/09/16 15:24 POC ABG pO2 131 (80-105) H 11/09/16 15:24 POC ABG HCO3 18.8 11/09/16 15:24 POC ABG Total CO2 20 11/09/16 15:24 POC ABG O2 Sat 99 11/09/16 15:24 PT/INR, D-dimer PT 16.4 Sec. (12.2-14.9) H 10/17/16 16:07 INR 1.33 (0.87-1.13) H 10/17/16 16:07 Abnormal lab findings: Abnormal Labs 10/13/16 10/13/16 10/13/16 06:38 06:38 07:23 WBC RBC Hgb Hct MCV RDW Plt Count Lymph % (Auto) [place] % (Auto) [place] # Seg Neutrophils % Seg Neuts % (Manual) Lymphocytes % (Manual) Monocytes % (Manual) Basophils % (Manual) Nucleated RBC % Seg Neutrophils # Seg Neutrophils # Man Lymphocytes # (Manual) Monocytes # (Manual) Eosinophils # (Manual) Basophils # (Manual) PT INR APTT Heparin Anti-Xa Level POC ABG pH POC ABG pCO2 POC ABG pO2 Sodium Potassium 6.2 H* Chloride Carbon Dioxide 8 L* BUN 85 H Creatinine 2.8 H Glucose 602 H* POC Glucose 495 H Calcium 7.9 L Phosphorus 6.9 H D Magnesium 3.0 H AST Alkaline Phosphatase C-Reactive Protein Total Protein Albumin Lipase Vitamin B12 TSH Urine WBC (Auto) Urine Chloride Urine Total Protein Vancomycin Trough Crossmatch 10/13/16 10/13/16 10/13/16 08:49 08:55 10:12 WBC RBC Hgb Hct MCV RDW Plt Count Lymph % (Auto) [place] % (Auto) [place] # Seg Neutrophils % Seg Neuts % (Manual) Lymphocytes % (Manual) Monocytes % (Manual) Basophils % (Manual) Nucleated RBC % Seg Neutrophils # Seg Neutrophils # Man Lymphocytes # (Manual) Monocytes # (Manual) Eosinophils # (Manual) Basophils # (Manual) PT INR APTT Heparin Anti-Xa Level POC ABG pH POC ABG pCO2 POC ABG pO2 Sodium Potassium 5.6 H Chloride Carbon Dioxide 11 L BUN 77 H Creatinine 2.7 H Glucose 457 H POC Glucose > 500 H 424 H Calcium 8.0 L Phosphorus Magnesium AST Alkaline Phosphatase C-Reactive Protein Total Protein Albumin Lipase Vitamin B12 TSH Urine WBC (Auto) Urine Chloride Urine Total Protein Vancomycin Trough Crossmatch 10/13/16 10/13/16 10/13/16 10:44 11:22 12:20 WBC RBC Hgb Hct MCV RDW Plt Count Lymph % (Auto) [place] % (Auto) [place] # Seg Neutrophils % Seg Neuts % (Manual) Lymphocytes % (Manual) Monocytes % (Manual) Basophils % (Manual) Nucleated RBC % Seg Neutrophils # Seg Neutrophils # Man Lymphocytes # (Manual) Monocytes # (Manual) Eosinophils # (Manual) Basophils # (Manual) PT INR APTT Heparin Anti-Xa Level POC ABG pH POC ABG pCO2 POC ABG pO2 Sodium Potassium 5.4 H Chloride Carbon Dioxide 14 L BUN 72 H Creatinine 2.6 H Glucose 383 H POC Glucose 391 H 313 H Calcium 8.2 L Phosphorus Magnesium AST Alkaline Phosphatase C-Reactive Protein Total Protein Albumin Lipase Vitamin B12 TSH Urine WBC (Auto) Urine Chloride Urine Total Protein Vancomycin Trough Crossmatch 10/13/16 10/13/16 10/13/16 13:32 14:44 15:57 WBC RBC Hgb Hct MCV RDW Plt Count Lymph % (Auto) [place] % (Auto) [place] # Seg Neutrophils % Seg Neuts % (Manual) Lymphocytes % (Manual) Monocytes % (Manual) Basophils % (Manual) Nucleated RBC % Seg Neutrophils # Seg Neutrophils # Man Lymphocytes # (Manual) Monocytes # (Manual) Eosinophils # (Manual) Basophils # (Manual) PT INR APTT Heparin Anti-Xa Level POC ABG pH POC ABG pCO2 POC ABG pO2 Sodium Potassium Chloride Carbon Dioxide BUN Creatinine Glucose POC Glucose 296 H 210 H 190 H Calcium Phosphorus Magnesium AST Alkaline Phosphatase C-Reactive Protein Total Protein Albumin Lipase Vitamin B12 TSH Urine WBC (Auto) Urine Chloride Urine Total Protein Vancomycin Trough Crossmatch 10/13/16 10/13/16 10/13/16 16:14 16:14 17:17 WBC RBC Hgb Hct MCV RDW Plt Count Lymph % (Auto) [place] % (Auto) [place] # Seg Neutrophils % Seg Neuts % (Manual) Lymphocytes % (Manual) Monocytes % (Manual) Basophils % (Manual) Nucleated RBC % Seg Neutrophils # Seg Neutrophils # Man Lymphocytes # (Manual) Monocytes # (Manual) Eosinophils # (Manual) Basophils # (Manual) PT INR APTT Heparin Anti-Xa Level POC ABG pH POC ABG pCO2 POC ABG pO2 Sodium Potassium Chloride Carbon Dioxide 17 L BUN 58 H Creatinine 1.8 H Glucose 172 H POC Glucose 193 H Calcium 7.7 L Phosphorus Magnesium AST Alkaline Phosphatase C-Reactive Protein 10.50 H Total Protein Albumin Lipase Vitamin B12 TSH Urine WBC (Auto) Urine Chloride Urine Total Protein Vancomycin Trough Crossmatch 10/13/16 10/13/16 10/13/16 17:55 18:32 19:41 WBC RBC Hgb Hct MCV RDW Plt Count Lymph % (Auto) [place] % (Auto) [place] # Seg Neutrophils % Seg Neuts % (Manual) Lymphocytes % (Manual) Monocytes % (Manual) Basophils % (Manual) Nucleated RBC % Seg Neutrophils # Seg Neutrophils # Man Lymphocytes # (Manual) Monocytes # (Manual) Eosinophils # (Manual) Basophils # (Manual) PT INR APTT Heparin Anti-Xa Level POC ABG pH POC ABG pCO2 30.6 L POC ABG pO2 218 H Sodium Potassium Chloride Carbon Dioxide BUN Creatinine Glucose POC Glucose 192 H 177 H Calcium Phosphorus Magnesium AST Alkaline Phosphatase C-Reactive Protein Total Protein Albumin Lipase Vitamin B12 TSH Urine WBC (Auto) Urine Chloride Urine Total Protein Vancomycin Trough Crossmatch 10/13/16 10/13/16 10/13/16 20:54 22:07 23:13 WBC RBC Hgb Hct MCV RDW Plt Count Lymph % (Auto) [place] % (Auto) [place] # Seg Neutrophils % Seg Neuts % (Manual) Lymphocytes % (Manual) Monocytes % (Manual) Basophils % (Manual) Nucleated RBC % Seg Neutrophils # Seg Neutrophils # Man Lymphocytes # (Manual) Monocytes # (Manual) Eosinophils # (Manual) Basophils # (Manual) PT INR APTT Heparin Anti-Xa Level POC ABG pH POC ABG pCO2 POC ABG pO2 Sodium Potassium Chloride Carbon Dioxide BUN Creatinine Glucose POC Glucose 178 H 160 H 168 H Calcium Phosphorus Magnesium AST Alkaline Phosphatase C-Reactive Protein Total Protein Albumin Lipase Vitamin B12 TSH Urine WBC (Auto) Urine Chloride Urine Total Protein Vancomycin Trough Crossmatch 10/13/16 10/13/16 10/14/16 23:25 Unknown 00:21 WBC RBC Hgb Hct MCV RDW Plt Count Lymph % (Auto) [place] % (Auto) [place] # Seg Neutrophils % Seg Neuts % (Manual) Lymphocytes % (Manual) Monocytes % (Manual) Basophils % (Manual) Nucleated RBC % Seg Neutrophils # Seg Neutrophils # Man Lymphocytes # (Manual) Monocytes # (Manual) Eosinophils # (Manual) Basophils # (Manual) PT INR APTT Heparin Anti-Xa Level POC ABG pH POC ABG pCO2 POC ABG pO2 Sodium 148 H Potassium Chloride 114.6 H Carbon Dioxide 17 L BUN 56 H Creatinine 1.6 H Glucose 151 H POC Glucose 171 H Calcium 7.8 L Phosphorus Magnesium AST Alkaline Phosphatase C-Reactive Protein Total Protein Albumin Lipase Vitamin B12 TSH Urine WBC (Auto) Urine Chloride 10.0 L Urine Total Protein < 4 L Vancomycin Trough Crossmatch 10/14/16 10/14/16 10/14/16 01:22 02:29 03:30 WBC RBC Hgb Hct MCV RDW Plt Count Lymph % (Auto) [place] % (Auto) [place] # Seg Neutrophils % Seg Neuts % (Manual) Lymphocytes % (Manual) Monocytes % (Manual) Basophils % (Manual) Nucleated RBC % Seg Neutrophils # Seg Neutrophils # Man Lymphocytes # (Manual) Monocytes # (Manual) Eosinophils # (Manual) Basophils # (Manual) PT INR APTT Heparin Anti-Xa Level POC ABG pH POC ABG pCO2 POC ABG pO2 Sodium Potassium Chloride Carbon Dioxide BUN Creatinine Glucose POC Glucose 144 H 136 H 143 H Calcium Phosphorus Magnesium AST Alkaline Phosphatase C-Reactive Protein Total Protein Albumin Lipase Vitamin B12 TSH Urine WBC (Auto) Urine Chloride Urine Total Protein Vancomycin Trough Crossmatch 10/14/16 10/14/16 10/14/16 04:28 05:16 05:44 WBC RBC Hgb Hct MCV RDW Plt Count Lymph % (Auto) [place] % (Auto) [place] # Seg Neutrophils % Seg Neuts % (Manual) Lymphocytes % (Manual) Monocytes % (Manual) Basophils % (Manual) Nucleated RBC % Seg Neutrophils # Seg Neutrophils # Man Lymphocytes # (Manual) Monocytes # (Manual) Eosinophils # (Manual) Basophils # (Manual) PT INR APTT Heparin Anti-Xa Level POC ABG pH POC ABG pCO2 28.2 L POC ABG pO2 125 H Sodium Potassium Chloride Carbon Dioxide BUN Creatinine Glucose POC Glucose 133 H 160 H Calcium Phosphorus Magnesium AST Alkaline Phosphatase C-Reactive Protein Total Protein Albumin Lipase Vitamin B12 TSH Urine WBC (Auto) Urine Chloride Urine Total Protein Vancomycin Trough Crossmatch 10/14/16 10/14/16 10/14/16 06:12 06:45 07:03 WBC RBC Hgb Hct MCV RDW Plt Count Lymph % (Auto) [place] % (Auto) [place] # Seg Neutrophils % Seg Neuts % (Manual) Lymphocytes % (Manual) Monocytes % (Manual) Basophils % (Manual) Nucleated RBC % Seg Neutrophils # Seg Neutrophils # Man Lymphocytes # (Manual) Monocytes # (Manual) Eosinophils # (Manual) Basophils # (Manual) PT INR APTT Heparin Anti-Xa Level POC ABG pH POC ABG pCO2 POC ABG pO2 Sodium 149 H Potassium Chloride 115.4 H Carbon Dioxide 17 L BUN 45 H Creatinine 1.5 H Glucose 139 H POC Glucose 149 H Calcium 7.4 L Phosphorus 1.0 L D Magnesium AST Alkaline Phosphatase C-Reactive Protein Total Protein Albumin Lipase Vitamin B12 TSH Urine WBC (Auto) Urine Chloride Urine Total Protein Vancomycin Trough Crossmatch 10/14/16 10/14/16 10/14/16 07:03 08:02 09:16 WBC RBC Hgb Hct MCV RDW Plt Count Lymph % (Auto) [place] % (Auto) [place] # Seg Neutrophils % Seg Neuts % (Manual) Lymphocytes % (Manual) Monocytes % (Manual) Basophils % (Manual) Nucleated RBC % Seg Neutrophils # Seg Neutrophils # Man Lymphocytes # (Manual) Monocytes # (Manual) Eosinophils # (Manual) Basophils # (Manual) PT INR APTT Heparin Anti-Xa Level POC ABG pH POC ABG pCO2 POC ABG pO2 Sodium Potassium Chloride Carbon Dioxide BUN Creatinine Glucose POC Glucose 156 H 158 H Calcium Phosphorus Magnesium AST Alkaline Phosphatase C-Reactive Protein Total Protein Albumin Lipase 738 H Vitamin B12 TSH Urine WBC (Auto) Urine Chloride Urine Total Protein Vancomycin Trough Crossmatch 10/14/16 10/14/16 10/14/16 10:26 11:03 11:57 WBC RBC Hgb Hct MCV RDW Plt Count Lymph % (Auto) [place] % (Auto) [place] # Seg Neutrophils % Seg Neuts % (Manual) Lymphocytes % (Manual) Monocytes % (Manual) Basophils % (Manual) Nucleated RBC % Seg Neutrophils # Seg Neutrophils # Man Lymphocytes # (Manual) Monocytes # (Manual) Eosinophils # (Manual) Basophils # (Manual) PT INR APTT Heparin Anti-Xa Level POC ABG pH 7.198 L POC ABG pCO2 47.5 H POC ABG pO2 Sodium Potassium Chloride Carbon Dioxide BUN Creatinine Glucose POC Glucose 174 H 189 H Calcium Phosphorus Magnesium AST Alkaline Phosphatase C-Reactive Protein Total Protein Albumin Lipase Vitamin B12 TSH Urine WBC (Auto) Urine Chloride Urine Total Protein Vancomycin Trough Crossmatch 10/14/16 10/14/16 10/14/16 12:02 12:02 13:11 WBC 13.4 H RBC 3.60 L Hgb Hct MCV 98 H D RDW 13.1 L Plt Count Lymph % (Auto) [place] % (Auto) [place] # Seg Neutrophils % Seg Neuts % (Manual) Lymphocytes % (Manual) Monocytes % (Manual) Basophils % (Manual) Nucleated RBC % Seg Neutrophils # Seg Neutrophils # Man Lymphocytes # (Manual) Monocytes # (Manual) Eosinophils # (Manual) Basophils # (Manual) PT INR APTT Heparin Anti-Xa Level POC ABG pH POC ABG pCO2 POC ABG pO2 Sodium Potassium Chloride 110.7 H Carbon Dioxide 19 L BUN 38 H Creatinine 1.4 H Glucose 182 H POC Glucose 173 H Calcium 7.5 L Phosphorus Magnesium AST Alkaline Phosphatase C-Reactive Protein Total Protein Albumin Lipase Vitamin B12 TSH Urine WBC (Auto) Urine Chloride Urine Total Protein Vancomycin Trough Crossmatch 10/14/16 10/14/16 10/14/16 14:24 15:31 16:36 WBC RBC Hgb Hct MCV RDW Plt Count Lymph % (Auto) [place] % (Auto) [place] # Seg Neutrophils % Seg Neuts % (Manual) Lymphocytes % (Manual) Monocytes % (Manual) Basophils % (Manual) Nucleated RBC % Seg Neutrophils # Seg Neutrophils # Man Lymphocytes # (Manual) Monocytes # (Manual) Eosinophils # (Manual) Basophils # (Manual) PT INR APTT Heparin Anti-Xa Level POC ABG pH POC ABG pCO2 POC ABG pO2 Sodium Potassium Chloride Carbon Dioxide BUN Creatinine Glucose POC Glucose 123 H 124 H 156 H Calcium Phosphorus Magnesium AST Alkaline Phosphatase C-Reactive Protein Total Protein Albumin Lipase Vitamin B12 TSH Urine WBC (Auto) Urine Chloride Urine Total Protein Vancomycin Trough Crossmatch 10/14/16 10/14/16 10/14/16 17:43 19:00 20:08 WBC RBC Hgb Hct MCV RDW Plt Count Lymph % (Auto) [place] % (Auto) [place] # Seg Neutrophils % Seg Neuts % (Manual) Lymphocytes % (Manual) Monocytes % (Manual) Basophils % (Manual) Nucleated RBC % Seg Neutrophils # Seg Neutrophils # Man Lymphocytes # (Manual) Monocytes # (Manual) Eosinophils # (Manual) Basophils # (Manual) PT INR APTT Heparin Anti-Xa Level POC ABG pH POC ABG pCO2 POC ABG pO2 Sodium Potassium Chloride Carbon Dioxide BUN Creatinine Glucose POC Glucose 154 H 123 H 138 H Calcium Phosphorus Magnesium AST Alkaline Phosphatase C-Reactive Protein Total Protein Albumin Lipase Vitamin B12 TSH Urine WBC (Auto) Urine Chloride Urine Total Protein Vancomycin Trough Crossmatch 10/14/16 10/14/16 10/14/16 21:17 22:25 23:37 WBC RBC Hgb Hct MCV RDW Plt Count Lymph % (Auto) [place] % (Auto) [place] # Seg Neutrophils % Seg Neuts % (Manual) Lymphocytes % (Manual) Monocytes % (Manual) Basophils % (Manual) Nucleated RBC % Seg Neutrophils # Seg Neutrophils # Man Lymphocytes # (Manual) Monocytes # (Manual) Eosinophils # (Manual) Basophils # (Manual) PT INR APTT Heparin Anti-Xa Level POC ABG pH POC ABG pCO2 POC ABG pO2 Sodium Potassium Chloride Carbon Dioxide BUN Creatinine Glucose POC Glucose 148 H 132 H 137 H Calcium Phosphorus Magnesium AST Alkaline Phosphatase C-Reactive Protein Total Protein Albumin Lipase Vitamin B12 TSH Urine WBC (Auto) Urine Chloride Urine Total Protein Vancomycin Trough Crossmatch 10/15/16 10/15/16 10/15/16 00:49 01:53 03:06 WBC RBC Hgb Hct MCV RDW Plt Count Lymph % (Auto) [place] % (Auto) [place] # Seg Neutrophils % Seg Neuts % (Manual) Lymphocytes % (Manual) Monocytes % (Manual) Basophils % (Manual) Nucleated RBC % Seg Neutrophils # Seg Neutrophils # Man Lymphocytes # (Manual) Monocytes # (Manual) Eosinophils # (Manual) Basophils # (Manual) PT INR APTT Heparin Anti-Xa Level POC ABG pH POC ABG pCO2 POC ABG pO2 Sodium Potassium Chloride Carbon Dioxide BUN Creatinine Glucose POC Glucose 132 H 134 H 134 H Calcium Phosphorus Magnesium AST Alkaline Phosphatase C-Reactive Protein Total Protein Albumin Lipase Vitamin B12 TSH Urine WBC (Auto) Urine Chloride Urine Total Protein Vancomycin Trough Crossmatch 10/15/16 10/15/16 10/15/16 04:40 04:46 06:21 WBC RBC Hgb Hct MCV RDW Plt Count Lymph % (Auto) [place] % (Auto) [place] # Seg Neutrophils % Seg Neuts % (Manual) Lymphocytes % (Manual) Monocytes % (Manual) Basophils % (Manual) Nucleated RBC % Seg Neutrophils # Seg Neutrophils # Man Lymphocytes # (Manual) Monocytes # (Manual) Eosinophils # (Manual) Basophils # (Manual) PT INR APTT Heparin Anti-Xa Level POC ABG pH POC ABG pCO2 30.7 L POC ABG pO2 108 H Sodium Potassium Chloride 109.0 H Carbon Dioxide 17 L BUN 27 H Creatinine Glucose 124 H POC Glucose 160 H Calcium 7.5 L Phosphorus Magnesium AST 79 H Alkaline Phosphatase C-Reactive Protein Total Protein 5.5 L Albumin 3.0 L Lipase Vitamin B12 TSH Urine WBC (Auto) Urine Chloride Urine Total Protein Vancomycin Trough Crossmatch 10/15/16 10/15/16 10/15/16 07:12 08:01 09:03 WBC RBC Hgb Hct MCV RDW Plt Count Lymph % (Auto) [place] % (Auto) [place] # Seg Neutrophils % Seg Neuts % (Manual) Lymphocytes % (Manual) Monocytes % (Manual) Basophils % (Manual) Nucleated RBC % Seg Neutrophils # Seg Neutrophils # Man Lymphocytes # (Manual) Monocytes # (Manual) Eosinophils # (Manual) Basophils # (Manual) PT INR APTT Heparin Anti-Xa Level POC ABG pH POC ABG pCO2 POC ABG pO2 Sodium Potassium Chloride Carbon Dioxide BUN Creatinine Glucose POC Glucose 179 H 187 H 165 H Calcium Phosphorus Magnesium AST Alkaline Phosphatase C-Reactive Protein Total Protein Albumin Lipase Vitamin B12 TSH Urine WBC (Auto) Urine Chloride Urine Total Protein Vancomycin Trough Crossmatch 10/15/16 10/15/16 10/15/16 10:06 10:06 10:07 WBC 12.1 H RBC 3.01 L Hgb 9.7 L Hct 29.6 L MCV 98 H RDW Plt Count 129 L Lymph % (Auto) [place] % (Auto) [place] # Seg Neutrophils % Seg Neuts % (Manual) Lymphocytes % (Manual) Monocytes % (Manual) Basophils % (Manual) Nucleated RBC % Seg Neutrophils # Seg Neutrophils # Man Lymphocytes # (Manual) Monocytes # (Manual) Eosinophils # (Manual) Basophils # (Manual) PT INR APTT Heparin Anti-Xa Level POC ABG pH POC ABG pCO2 POC ABG pO2 Sodium Potassium 3.2 L D Chloride 109.6 H Carbon Dioxide 18 L BUN 22 H Creatinine Glucose 127 H POC Glucose 147 H Calcium 7.0 L Phosphorus Magnesium AST Alkaline Phosphatase C-Reactive Protein Total Protein Albumin Lipase Vitamin B12 TSH Urine WBC (Auto) Urine Chloride Urine Total Protein Vancomycin Trough Crossmatch 10/15/16 10/15/16 10/15/16 11:05 11:06 11:57 WBC RBC Hgb Hct MCV RDW Plt Count Lymph % (Auto) [place] % (Auto) [place] # Seg Neutrophils % Seg Neuts % (Manual) Lymphocytes % (Manual) Monocytes % (Manual) Basophils % (Manual) Nucleated RBC % Seg Neutrophils # Seg Neutrophils # Man Lymphocytes # (Manual) Monocytes # (Manual) Eosinophils # (Manual) Basophils # (Manual) PT INR APTT Heparin Anti-Xa Level POC ABG pH 7.305 L POC ABG pCO2 POC ABG pO2 Sodium Potassium Chloride Carbon Dioxide BUN Creatinine Glucose POC Glucose 145 H Calcium Phosphorus Magnesium AST Alkaline Phosphatase C-Reactive Protein Total Protein Albumin Lipase Vitamin B12 TSH Urine WBC (Auto) 7.0 H Urine Chloride Urine Total Protein Vancomycin Trough Crossmatch 10/15/16 10/15/16 10/15/16 12:04 13:59 15:24 WBC RBC Hgb Hct MCV RDW Plt Count Lymph % (Auto) [place] % (Auto) [place] # Seg Neutrophils % Seg Neuts % (Manual) Lymphocytes % (Manual) Monocytes % (Manual) Basophils % (Manual) Nucleated RBC % Seg Neutrophils # Seg Neutrophils # Man Lymphocytes # (Manual) Monocytes # (Manual) Eosinophils # (Manual) Basophils # (Manual) PT INR APTT Heparin Anti-Xa Level POC ABG pH POC ABG pCO2 POC ABG pO2 Sodium Potassium Chloride Carbon Dioxide BUN Creatinine Glucose POC Glucose 123 H 147 H 153 H Calcium Phosphorus Magnesium AST Alkaline Phosphatase C-Reactive Protein Total Protein Albumin Lipase Vitamin B12 TSH Urine WBC (Auto) Urine Chloride Urine Total Protein Vancomycin Trough Crossmatch 10/15/16 10/15/16 10/15/16 16:30 17:34 18:30 WBC RBC Hgb Hct MCV RDW Plt Count Lymph % (Auto) [place] % (Auto) [place] # Seg Neutrophils % Seg Neuts % (Manual) Lymphocytes % (Manual) Monocytes % (Manual) Basophils % (Manual) Nucleated RBC % Seg Neutrophils # Seg Neutrophils # Man Lymphocytes # (Manual) Monocytes # (Manual) Eosinophils # (Manual) Basophils # (Manual) PT INR APTT Heparin Anti-Xa Level POC ABG pH POC ABG pCO2 POC ABG pO2 Sodium Potassium Chloride Carbon Dioxide BUN Creatinine Glucose POC Glucose 223 H 236 H 164 H Calcium Phosphorus Magnesium AST Alkaline Phosphatase C-Reactive Protein Total Protein Albumin Lipase Vitamin B12 TSH Urine WBC (Auto) Urine Chloride Urine Total Protein Vancomycin Trough Crossmatch 10/15/16 10/15/16 10/15/16 19:14 20:31 21:23 WBC RBC Hgb Hct MCV RDW Plt Count Lymph % (Auto) [place] % (Auto) [place] # Seg Neutrophils % Seg Neuts % (Manual) Lymphocytes % (Manual) Monocytes % (Manual) Basophils % (Manual) Nucleated RBC % Seg Neutrophils # Seg Neutrophils # Man Lymphocytes # (Manual) Monocytes # (Manual) Eosinophils # (Manual) Basophils # (Manual) PT INR APTT Heparin Anti-Xa Level POC ABG pH POC ABG pCO2 POC ABG pO2 Sodium Potassium Chloride Carbon Dioxide BUN Creatinine Glucose POC Glucose 138 H 158 H 158 H Calcium Phosphorus Magnesium AST Alkaline Phosphatase C-Reactive Protein Total Protein Albumin Lipase Vitamin B12 TSH Urine WBC (Auto) Urine Chloride Urine Total Protein Vancomycin Trough Crossmatch 10/15/16 10/15/16 10/16/16 22:04 22:57 00:11 WBC RBC Hgb Hct MCV RDW Plt Count Lymph % (Auto) [place] % (Auto) [place] # Seg Neutrophils % Seg Neuts % (Manual) Lymphocytes % (Manual) Monocytes % (Manual) Basophils % (Manual) Nucleated RBC % Seg Neutrophils # Seg Neutrophils # Man Lymphocytes # (Manual) Monocytes # (Manual) Eosinophils # (Manual) Basophils # (Manual) PT INR APTT Heparin Anti-Xa Level POC ABG pH POC ABG pCO2 POC ABG pO2 Sodium Potassium Chloride Carbon Dioxide BUN Creatinine Glucose POC Glucose 168 H 213 H 166 H Calcium Phosphorus Magnesium AST Alkaline Phosphatase C-Reactive Protein Total Protein Albumin Lipase Vitamin B12 TSH Urine WBC (Auto) Urine Chloride Urine Total Protein Vancomycin Trough Crossmatch 10/16/16 10/16/16 10/16/16 01:16 02:32 03:38 WBC RBC Hgb Hct MCV RDW Plt Count Lymph % (Auto) [place] % (Auto) [place] # Seg Neutrophils % Seg Neuts % (Manual) Lymphocytes % (Manual) Monocytes % (Manual) Basophils % (Manual) Nucleated RBC % Seg Neutrophils # Seg Neutrophils # Man Lymphocytes # (Manual) Monocytes # (Manual) Eosinophils # (Manual) Basophils # (Manual) PT INR APTT Heparin Anti-Xa Level POC ABG pH POC ABG pCO2 POC ABG pO2 Sodium Potassium Chloride Carbon Dioxide BUN Creatinine Glucose POC Glucose 171 H 164 H 147 H Calcium Phosphorus Magnesium AST Alkaline Phosphatase C-Reactive Protein Total Protein Albumin Lipase Vitamin B12 TSH Urine WBC (Auto) Urine Chloride Urine Total Protein Vancomycin Trough Crossmatch 10/16/16 10/16/16 10/16/16 04:14 04:14 04:49 WBC RBC Hgb Hct MCV RDW Plt Count Lymph % (Auto) [place] % (Auto) [place] # Seg Neutrophils % Seg Neuts % (Manual) Lymphocytes % (Manual) Monocytes % (Manual) Basophils % (Manual) Nucleated RBC % Seg Neutrophils # Seg Neutrophils # Man Lymphocytes # (Manual) Monocytes # (Manual) Eosinophils # (Manual) Basophils # (Manual) PT INR APTT Heparin Anti-Xa Level POC ABG pH POC ABG pCO2 POC ABG pO2 Sodium 147 H Potassium Chloride 110.9 H Carbon Dioxide 19 L BUN Creatinine Glucose 139 H POC Glucose 144 H Calcium 7.3 L Phosphorus 2.3 L Magnesium AST Alkaline Phosphatase C-Reactive Protein Total Protein Albumin Lipase 143 H Vitamin B12 TSH Urine WBC (Auto) Urine Chloride Urine Total Protein Vancomycin Trough Crossmatch 10/16/16 10/16/16 10/16/16 05:03 05:41 05:58 WBC 16.5 H RBC 3.36 L Hgb Hct MCV 98 H RDW 13.1 L Plt Count Lymph % (Auto) 8.5 L [place] % (Auto) 7.6 H [place] # 1.3 H Seg Neutrophils % 83.3 H Seg Neuts % (Manual) Lymphocytes % (Manual) Monocytes % (Manual) Basophils % (Manual) Nucleated RBC % Seg Neutrophils # 13.8 H Seg Neutrophils # Man Lymphocytes # (Manual) Monocytes # (Manual) Eosinophils # (Manual) Basophils # (Manual) PT INR APTT Heparin Anti-Xa Level POC ABG pH POC ABG pCO2 30.7 L POC ABG pO2 128 H Sodium Potassium Chloride Carbon Dioxide BUN Creatinine Glucose POC Glucose 131 H Calcium Phosphorus Magnesium AST Alkaline Phosphatase C-Reactive Protein Total Protein Albumin Lipase Vitamin B12 TSH Urine WBC (Auto) Urine Chloride Urine Total Protein Vancomycin Trough Crossmatch 10/16/16 10/16/16 10/16/16 06:32 09:27 09:35 WBC RBC Hgb Hct MCV RDW Plt Count Lymph % (Auto) [place] % (Auto) [place] # Seg Neutrophils % Seg Neuts % (Manual) Lymphocytes % (Manual) Monocytes % (Manual) Basophils % (Manual) Nucleated RBC % Seg Neutrophils # Seg Neutrophils # Man Lymphocytes # (Manual) Monocytes # (Manual) Eosinophils # (Manual) Basophils # (Manual) PT INR APTT Heparin Anti-Xa Level POC ABG pH POC ABG pCO2 32.8 L POC ABG pO2 137 H Sodium Potassium Chloride Carbon Dioxide BUN Creatinine Glucose POC Glucose 121 H 150 H Calcium Phosphorus Magnesium AST Alkaline Phosphatase C-Reactive Protein Total Protein Albumin Lipase Vitamin B12 TSH Urine WBC (Auto) Urine Chloride Urine Total Protein Vancomycin Trough Crossmatch 10/16/16 10/16/16 10/16/16 10:47 13:27 14:24 WBC RBC Hgb Hct MCV RDW Plt Count Lymph % (Auto) [place] % (Auto) [place] # Seg Neutrophils % Seg Neuts % (Manual) Lymphocytes % (Manual) Monocytes % (Manual) Basophils % (Manual) Nucleated RBC % Seg Neutrophils # Seg Neutrophils # Man Lymphocytes # (Manual) Monocytes # (Manual) Eosinophils # (Manual) Basophils # (Manual) PT INR APTT Heparin Anti-Xa Level POC ABG pH POC ABG pCO2 POC ABG pO2 Sodium Potassium Chloride Carbon Dioxide BUN Creatinine Glucose POC Glucose 184 H 171 H 174 H Calcium Phosphorus Magnesium AST Alkaline Phosphatase C-Reactive Protein Total Protein Albumin Lipase Vitamin B12 TSH Urine WBC (Auto) Urine Chloride Urine Total Protein Vancomycin Trough Crossmatch 10/16/16 10/16/16 10/16/16 15:48 16:26 18:17 WBC RBC Hgb Hct MCV RDW Plt Count Lymph % (Auto) [place] % (Auto) [place] # Seg Neutrophils % Seg Neuts % (Manual) Lymphocytes % (Manual) Monocytes % (Manual) Basophils % (Manual) Nucleated RBC % Seg Neutrophils # Seg Neutrophils # Man Lymphocytes # (Manual) Monocytes # (Manual) Eosinophils # (Manual) Basophils # (Manual) PT INR APTT Heparin Anti-Xa Level POC ABG pH POC ABG pCO2 POC ABG pO2 Sodium Potassium Chloride Carbon Dioxide BUN Creatinine Glucose POC Glucose 205 H 204 H 234 H Calcium Phosphorus Magnesium AST Alkaline Phosphatase C-Reactive Protein Total Protein Albumin Lipase Vitamin B12 TSH Urine WBC (Auto) Urine Chloride Urine Total Protein Vancomycin Trough Crossmatch 10/16/16 10/16/16 10/16/16 19:40 20:33 21:36 WBC RBC Hgb Hct MCV RDW Plt Count Lymph % (Auto) [place] % (Auto) [place] # Seg Neutrophils % Seg Neuts % (Manual) Lymphocytes % (Manual) Monocytes % (Manual) Basophils % (Manual) Nucleated RBC % Seg Neutrophils # Seg Neutrophils # Man Lymphocytes # (Manual) Monocytes # (Manual) Eosinophils # (Manual) Basophils # (Manual) PT INR APTT Heparin Anti-Xa Level POC ABG pH POC ABG pCO2 POC ABG pO2 Sodium Potassium Chloride Carbon Dioxide BUN Creatinine Glucose POC Glucose 167 H 153 H 158 H Calcium Phosphorus Magnesium AST Alkaline Phosphatase C-Reactive Protein Total Protein Albumin Lipase Vitamin B12 TSH Urine WBC (Auto) Urine Chloride Urine Total Protein Vancomycin Trough Crossmatch 10/16/16 10/16/16 10/17/16 22:54 23:48 00:47 WBC RBC Hgb Hct MCV RDW Plt Count Lymph % (Auto) [place] % (Auto) [place] # Seg Neutrophils % Seg Neuts % (Manual) Lymphocytes % (Manual) Monocytes % (Manual) Basophils % (Manual) Nucleated RBC % Seg Neutrophils # Seg Neutrophils # Man Lymphocytes # (Manual) Monocytes # (Manual) Eosinophils # (Manual) Basophils # (Manual) PT INR APTT Heparin Anti-Xa Level POC ABG pH POC ABG pCO2 POC ABG pO2 Sodium Potassium Chloride Carbon Dioxide BUN Creatinine Glucose POC Glucose 180 H 207 H 196 H Calcium Phosphorus Magnesium AST Alkaline Phosphatase C-Reactive Protein Total Protein Albumin Lipase Vitamin B12 TSH Urine WBC (Auto) Urine Chloride Urine Total Protein Vancomycin Trough Crossmatch 10/17/16 10/17/16 10/17/16 01:57 02:49 03:50 WBC RBC Hgb Hct MCV RDW Plt Count Lymph % (Auto) [place] % (Auto) [place] # Seg Neutrophils % Seg Neuts % (Manual) Lymphocytes % (Manual) Monocytes % (Manual) Basophils % (Manual) Nucleated RBC % Seg Neutrophils # Seg Neutrophils # Man Lymphocytes # (Manual) Monocytes # (Manual) Eosinophils # (Manual) Basophils # (Manual) PT INR APTT Heparin Anti-Xa Level POC ABG pH POC ABG pCO2 POC ABG pO2 Sodium Potassium Chloride Carbon Dioxide BUN Creatinine Glucose POC Glucose 180 H 151 H 106 H Calcium Phosphorus Magnesium AST Alkaline Phosphatase C-Reactive Protein Total Protein Albumin Lipase Vitamin B12 TSH Urine WBC (Auto) Urine Chloride Urine Total Protein Vancomycin Trough Crossmatch 10/17/16 10/17/16 10/17/16 04:59 06:03 06:35 WBC RBC Hgb Hct MCV RDW Plt Count Lymph % (Auto) [place] % (Auto) [place] # Seg Neutrophils % Seg Neuts % (Manual) Lymphocytes % (Manual) Monocytes % (Manual) Basophils % (Manual) Nucleated RBC % Seg Neutrophils # Seg Neutrophils # Man Lymphocytes # (Manual) Monocytes # (Manual) Eosinophils # (Manual) Basophils # (Manual) PT INR APTT Heparin Anti-Xa Level POC ABG pH 7.453 H POC ABG pCO2 30.1 L POC ABG pO2 111 H Sodium Potassium Chloride Carbon Dioxide BUN Creatinine Glucose POC Glucose 145 H 157 H Calcium Phosphorus Magnesium AST Alkaline Phosphatase C-Reactive Protein Total Protein Albumin Lipase Vitamin B12 TSH Urine WBC (Auto) Urine Chloride Urine Total Protein Vancomycin Trough Crossmatch 10/17/16 10/17/16 10/17/16 07:08 07:11 08:01 WBC RBC Hgb Hct MCV RDW Plt Count Lymph % (Auto) [place] % (Auto) [place] # Seg Neutrophils % Seg Neuts % (Manual) Lymphocytes % (Manual) Monocytes % (Manual) Basophils % (Manual) Nucleated RBC % Seg Neutrophils # Seg Neutrophils # Man Lymphocytes # (Manual) Monocytes # (Manual) Eosinophils # (Manual) Basophils # (Manual) PT INR APTT Heparin Anti-Xa Level POC ABG pH POC ABG pCO2 POC ABG pO2 Sodium 147 H Potassium Chloride 113.8 H Carbon Dioxide 19 L BUN Creatinine Glucose 136 H POC Glucose 136 H 152 H Calcium 7.7 L Phosphorus Magnesium AST Alkaline Phosphatase C-Reactive Protein Total Protein Albumin Lipase Vitamin B12 TSH Urine WBC (Auto) Urine Chloride Urine Total Protein Vancomycin Trough Crossmatch 10/17/16 10/17/16 10/17/16 08:23 09:17 09:53 WBC 18.1 H RBC 3.01 L Hgb 9.7 L Hct 29.4 L MCV 98 H RDW Plt Count 116 L Lymph % (Auto) [place] % (Auto) [place] # Seg Neutrophils % Seg Neuts % (Manual) 77.0 H Lymphocytes % (Manual) 4.0 L Monocytes % (Manual) 12.0 H Basophils % (Manual) Nucleated RBC % Seg Neutrophils # Seg Neutrophils # Man 13.9 H Lymphocytes # (Manual) 0.7 L Monocytes # (Manual) 2.2 H Eosinophils # (Manual) Basophils # (Manual) PT INR APTT Heparin Anti-Xa Level POC ABG pH POC ABG pCO2 POC ABG pO2 Sodium Potassium Chloride Carbon Dioxide BUN Creatinine Glucose POC Glucose 148 H 137 H Calcium Phosphorus Magnesium AST Alkaline Phosphatase C-Reactive Protein Total Protein Albumin Lipase Vitamin B12 TSH Urine WBC (Auto) Urine Chloride Urine Total Protein Vancomycin Trough Crossmatch 10/17/16 10/17/16 10/17/16 11:43 16:07 17:42 WBC RBC Hgb Hct MCV RDW Plt Count Lymph % (Auto) [place] % (Auto) [place] # Seg Neutrophils % Seg Neuts % (Manual) Lymphocytes % (Manual) Monocytes % (Manual) Basophils % (Manual) Nucleated RBC % Seg Neutrophils # Seg Neutrophils # Man Lymphocytes # (Manual) Monocytes # (Manual) Eosinophils # (Manual) Basophils # (Manual) PT 16.4 H INR 1.33 H APTT 38.8 H Heparin Anti-Xa Level POC ABG pH POC ABG pCO2 POC ABG pO2 Sodium Potassium Chloride Carbon Dioxide BUN Creatinine Glucose POC Glucose 179 H 153 H Calcium Phosphorus Magnesium AST Alkaline Phosphatase C-Reactive Protein Total Protein Albumin Lipase Vitamin B12 TSH Urine WBC (Auto) Urine Chloride Urine Total Protein Vancomycin Trough Crossmatch 10/17/16 10/18/16 10/18/16 22:54 04:37 05:39 WBC RBC Hgb Hct MCV RDW Plt Count Lymph % (Auto) [place] % (Auto) [place] # Seg Neutrophils % Seg Neuts % (Manual) Lymphocytes % (Manual) Monocytes % (Manual) Basophils % (Manual) Nucleated RBC % Seg Neutrophils # Seg Neutrophils # Man Lymphocytes # (Manual) Monocytes # (Manual) Eosinophils # (Manual) Basophils # (Manual) PT INR APTT Heparin Anti-Xa Level 0.27 L POC ABG pH 7.454 H POC ABG pCO2 30.8 L POC ABG pO2 115 H Sodium Potassium Chloride Carbon Dioxide BUN Creatinine Glucose POC Glucose 69 L Calcium Phosphorus Magnesium AST Alkaline Phosphatase C-Reactive Protein Total Protein Albumin Lipase Vitamin B12 TSH Urine WBC (Auto) Urine Chloride Urine Total Protein Vancomycin Trough Crossmatch 10/18/16 10/18/16 10/18/16 06:46 06:46 06:46 WBC 20.5 H RBC 2.62 L Hgb 8.4 L Hct 26.0 L MCV 100 H RDW Plt Count Lymph % (Auto) [place] % (Auto) [place] # Seg Neutrophils % Seg Neuts % (Manual) 75.0 H Lymphocytes % (Manual) 9.0 L Monocytes % (Manual) 14.0 H Basophils % (Manual) Nucleated RBC % Seg Neutrophils # Seg Neutrophils # Man 15.4 H Lymphocytes # (Manual) Monocytes # (Manual) 2.9 H Eosinophils # (Manual) Basophils # (Manual) PT INR APTT Heparin Anti-Xa Level POC ABG pH POC ABG pCO2 POC ABG pO2 Sodium Potassium Chloride 110.6 H Carbon Dioxide BUN Creatinine 1.3 H Glucose 153 H POC Glucose Calcium 8.0 L Phosphorus Magnesium 1.6 L AST Alkaline Phosphatase C-Reactive Protein Total Protein Albumin Lipase Vitamin B12 TSH Urine WBC (Auto) Urine Chloride Urine Total Protein Vancomycin Trough Crossmatch 10/18/16 10/18/16 10/18/16 07:30 11:37 17:51 WBC RBC Hgb Hct MCV RDW Plt Count Lymph % (Auto) [place] % (Auto) [place] # Seg Neutrophils % Seg Neuts % (Manual) Lymphocytes % (Manual) Monocytes % (Manual) Basophils % (Manual) Nucleated RBC % Seg Neutrophils # Seg Neutrophils # Man Lymphocytes # (Manual) Monocytes # (Manual) Eosinophils # (Manual) Basophils # (Manual) PT INR APTT Heparin Anti-Xa Level POC ABG pH POC ABG pCO2 POC ABG pO2 Sodium Potassium Chloride Carbon Dioxide BUN Creatinine Glucose POC Glucose 162 H 156 H 164 H Calcium Phosphorus Magnesium AST Alkaline Phosphatase C-Reactive Protein Total Protein Albumin Lipase Vitamin B12 TSH Urine WBC (Auto) Urine Chloride Urine Total Protein Vancomycin Trough Crossmatch 10/18/16 10/19/16 10/19/16 23:44 03:59 05:13 WBC 18.2 H RBC 2.76 L Hgb 9.0 L Hct 27.7 L MCV 100 H RDW Plt Count Lymph % (Auto) [place] % (Auto) [place] # Seg Neutrophils % Seg Neuts % (Manual) 76.0 H Lymphocytes % (Manual) 10.0 L Monocytes % (Manual) Basophils % (Manual) Nucleated RBC % Seg Neutrophils # Seg Neutrophils # Man 13.8 H Lymphocytes # (Manual) Monocytes # (Manual) Eosinophils # (Manual) Basophils # (Manual) PT INR APTT Heparin Anti-Xa Level POC ABG pH POC ABG pCO2 32.2 L POC ABG pO2 128 H Sodium Potassium Chloride Carbon Dioxide BUN Creatinine Glucose POC Glucose 278 H Calcium Phosphorus Magnesium AST Alkaline Phosphatase C-Reactive Protein Total Protein Albumin Lipase Vitamin B12 TSH Urine WBC (Auto) Urine Chloride Urine Total Protein Vancomycin Trough Crossmatch 10/19/16 10/19/16 10/19/16 06:01 06:30 12:20 WBC RBC Hgb Hct MCV RDW Plt Count Lymph % (Auto) [place] % (Auto) [place] # Seg Neutrophils % Seg Neuts % (Manual) Lymphocytes % (Manual) Monocytes % (Manual) Basophils % (Manual) Nucleated RBC % Seg Neutrophils # Seg Neutrophils # Man Lymphocytes # (Manual) Monocytes # (Manual) Eosinophils # (Manual) Basophils # (Manual) PT INR APTT Heparin Anti-Xa Level POC ABG pH POC ABG pCO2 POC ABG pO2 Sodium Potassium Chloride Carbon Dioxide 18 L BUN Creatinine 1.3 H Glucose 262 H POC Glucose 261 H 349 H Calcium 7.7 L Phosphorus 4.8 H D Magnesium AST Alkaline Phosphatase C-Reactive Protein Total Protein Albumin Lipase Vitamin B12 TSH Urine WBC (Auto) Urine Chloride Urine Total Protein Vancomycin Trough Crossmatch 10/19/16 10/20/16 10/20/16 16:48 00:17 05:20 WBC 22.5 H RBC 2.80 L Hgb 8.9 L Hct 28.3 L MCV 101 H RDW Plt Count Lymph % (Auto) [place] % (Auto) [place] # Seg Neutrophils % Seg Neuts % (Manual) Lymphocytes % (Manual) 10.0 L Monocytes % (Manual) Basophils % (Manual) Nucleated RBC % Seg Neutrophils # Seg Neutrophils # Man 13.3 H Lymphocytes # (Manual) Monocytes # (Manual) 1.1 H Eosinophils # (Manual) 0.7 H Basophils # (Manual) PT INR APTT Heparin Anti-Xa Level POC ABG pH POC ABG pCO2 POC ABG pO2 Sodium Potassium Chloride Carbon Dioxide BUN Creatinine Glucose POC Glucose 248 H 346 H Calcium Phosphorus Magnesium AST Alkaline Phosphatase C-Reactive Protein Total Protein Albumin Lipase Vitamin B12 TSH Urine WBC (Auto) Urine Chloride Urine Total Protein Vancomycin Trough Crossmatch 10/20/16 10/20/16 10/20/16 05:20 05:20 06:05 WBC RBC Hgb Hct MCV RDW Plt Count Lymph % (Auto) [place] % (Auto) [place] # Seg Neutrophils % Seg Neuts % (Manual) Lymphocytes % (Manual) Monocytes % (Manual) Basophils % (Manual) Nucleated RBC % Seg Neutrophils # Seg Neutrophils # Man Lymphocytes # (Manual) Monocytes # (Manual) Eosinophils # (Manual) Basophils # (Manual) PT INR APTT Heparin Anti-Xa Level 0.20 L POC ABG pH POC ABG pCO2 POC ABG pO2 Sodium Potassium Chloride Carbon Dioxide BUN 20 H Creatinine Glucose 374 H POC Glucose 337 H Calcium 8.3 L Phosphorus Magnesium AST Alkaline Phosphatase C-Reactive Protein Total Protein Albumin Lipase Vitamin B12 TSH Urine WBC (Auto) Urine Chloride Urine Total Protein Vancomycin Trough Crossmatch 10/20/16 10/20/16 10/20/16 11:49 13:59 17:56 WBC RBC Hgb Hct MCV RDW Plt Count Lymph % (Auto) [place] % (Auto) [place] # Seg Neutrophils % Seg Neuts % (Manual) Lymphocytes % (Manual) Monocytes % (Manual) Basophils % (Manual) Nucleated RBC % Seg Neutrophils # Seg Neutrophils # Man Lymphocytes # (Manual) Monocytes # (Manual) Eosinophils # (Manual) Basophils # (Manual) PT INR APTT Heparin Anti-Xa Level 2.00 H POC ABG pH POC ABG pCO2 POC ABG pO2 Sodium Potassium Chloride Carbon Dioxide BUN Creatinine Glucose POC Glucose 305 H 362 H Calcium Phosphorus Magnesium AST Alkaline Phosphatase C-Reactive Protein Total Protein Albumin Lipase Vitamin B12 TSH Urine WBC (Auto) Urine Chloride Urine Total Protein Vancomycin Trough Crossmatch 10/20/16 10/21/16 10/21/16 23:52 05:00 05:49 WBC 22.9 H RBC 2.49 L Hgb 7.7 L Hct 25.6 L MCV 103 H RDW Plt Count Lymph % (Auto) [place] % (Auto) [place] # Seg Neutrophils % Seg Neuts % (Manual) 94.0 H Lymphocytes % (Manual) 1.0 L Monocytes % (Manual) Basophils % (Manual) Nucleated RBC % Seg Neutrophils # Seg Neutrophils # Man 21.5 H Lymphocytes # (Manual) 0.2 L Monocytes # (Manual) 1.1 H Eosinophils # (Manual) Basophils # (Manual) PT INR APTT Heparin Anti-Xa Level POC ABG pH POC ABG pCO2 POC ABG pO2 Sodium Potassium Chloride Carbon Dioxide BUN Creatinine Glucose POC Glucose 252 H 180 H Calcium Phosphorus Magnesium AST Alkaline Phosphatase C-Reactive Protein Total Protein Albumin Lipase Vitamin B12 TSH Urine WBC (Auto) Urine Chloride Urine Total Protein Vancomycin Trough Crossmatch 10/21/16 10/21/16 10/21/16 11:47 11:49 14:10 WBC RBC Hgb Hct MCV RDW Plt Count Lymph % (Auto) [place] % (Auto) [place] # Seg Neutrophils % Seg Neuts % (Manual) Lymphocytes % (Manual) Monocytes % (Manual) Basophils % (Manual) Nucleated RBC % Seg Neutrophils # Seg Neutrophils # Man Lymphocytes # (Manual) Monocytes # (Manual) Eosinophils # (Manual) Basophils # (Manual) PT INR APTT Heparin Anti-Xa Level POC ABG pH POC ABG pCO2 POC ABG pO2 Sodium Potassium Chloride Carbon Dioxide BUN Creatinine Glucose POC Glucose 50 L 56 L 140 H Calcium Phosphorus Magnesium AST Alkaline Phosphatase C-Reactive Protein Total Protein Albumin Lipase Vitamin B12 TSH Urine WBC (Auto) Urine Chloride Urine Total Protein Vancomycin Trough Crossmatch 10/21/16 10/21/16 10/22/16 18:24 Unknown 00:07 WBC RBC Hgb Hct MCV RDW Plt Count Lymph % (Auto) [place] % (Auto) [place] # Seg Neutrophils % Seg Neuts % (Manual) Lymphocytes % (Manual) Monocytes % (Manual) Basophils % (Manual) Nucleated RBC % Seg Neutrophils # Seg Neutrophils # Man Lymphocytes # (Manual) Monocytes # (Manual) Eosinophils # (Manual) Basophils # (Manual) PT INR APTT Heparin Anti-Xa Level POC ABG pH POC ABG pCO2 POC ABG pO2 Sodium 150 H Potassium 3.1 L Chloride 112.4 H Carbon Dioxide BUN 25 H Creatinine 1.4 H Glucose POC Glucose 175 H 218 H Calcium 8.0 L Phosphorus Magnesium AST Alkaline Phosphatase C-Reactive Protein Total Protein Albumin Lipase Vitamin B12 TSH Urine WBC (Auto) Urine Chloride Urine Total Protein Vancomycin Trough Crossmatch 10/22/16 10/22/16 10/22/16 04:20 04:20 10:25 WBC 20.8 H RBC 2.37 L Hgb 7.5 L Hct 23.9 L MCV 101 H RDW Plt Count Lymph % (Auto) [place] % (Auto) [place] # Seg Neutrophils % Seg Neuts % (Manual) 89.0 H Lymphocytes % (Manual) 7.0 L Monocytes % (Manual) Basophils % (Manual) Nucleated RBC % Seg Neutrophils # Seg Neutrophils # Man 18.5 H Lymphocytes # (Manual) Monocytes # (Manual) Eosinophils # (Manual) Basophils # (Manual) 0.2 H PT INR APTT Heparin Anti-Xa Level POC ABG pH POC ABG pCO2 POC ABG pO2 Sodium 148 H Potassium 2.9 L* Chloride 109.4 H Carbon Dioxide BUN 26 H Creatinine Glucose 140 H POC Glucose Calcium 7.5 L Phosphorus Magnesium AST Alkaline Phosphatase C-Reactive Protein Total Protein Albumin Lipase Vitamin B12 976.8 H TSH Urine WBC (Auto) Urine Chloride Urine Total Protein Vancomycin Trough Crossmatch 10/22/16 10/22/16 10/22/16 10:25 14:50 18:16 WBC RBC Hgb Hct MCV RDW Plt Count Lymph % (Auto) [place] % (Auto) [place] # Seg Neutrophils % Seg Neuts % (Manual) Lymphocytes % (Manual) Monocytes % (Manual) Basophils % (Manual) Nucleated RBC % Seg Neutrophils # Seg Neutrophils # Man Lymphocytes # (Manual) Monocytes # (Manual) Eosinophils # (Manual) Basophils # (Manual) PT INR APTT Heparin Anti-Xa Level POC ABG pH POC ABG pCO2 POC ABG pO2 Sodium Potassium Chloride Carbon Dioxide BUN Creatinine Glucose POC Glucose 193 H Calcium Phosphorus Magnesium AST Alkaline Phosphatase C-Reactive Protein Total Protein Albumin Lipase Vitamin B12 TSH 0.143 L 0.162 L Urine WBC (Auto) Urine Chloride Urine Total Protein Vancomycin Trough Crossmatch 10/22/16 10/22/16 10/22/16 20:00 20:00 20:00 WBC 24.1 H RBC 2.58 L Hgb 8.2 L Hct 26.4 L MCV 102 H RDW Plt Count Lymph % (Auto) [place] % (Auto) [place] # Seg Neutrophils % Seg Neuts % (Manual) 74.0 H Lymphocytes % (Manual) 7.0 L Monocytes % (Manual) Basophils % (Manual) Nucleated RBC % Seg Neutrophils # Seg Neutrophils # Man 17.8 H Lymphocytes # (Manual) Monocytes # (Manual) Eosinophils # (Manual) Basophils # (Manual) PT INR APTT Heparin Anti-Xa Level 1.92 H POC ABG pH POC ABG pCO2 POC ABG pO2 Sodium Potassium Chloride Carbon Dioxide BUN Creatinine Glucose POC Glucose Calcium Phosphorus Magnesium AST Alkaline Phosphatase C-Reactive Protein Total Protein Albumin Lipase Vitamin B12 TSH Urine WBC (Auto) Urine Chloride Urine Total Protein Vancomycin Trough Crossmatch See Detail 10/23/16 10/23/16 10/23/16 00:21 06:09 12:07 WBC RBC Hgb Hct MCV RDW Plt Count Lymph % (Auto) [place] % (Auto) [place] # Seg Neutrophils % Seg Neuts % (Manual) Lymphocytes % (Manual) Monocytes % (Manual) Basophils % (Manual) Nucleated RBC % Seg Neutrophils # Seg Neutrophils # Man Lymphocytes # (Manual) Monocytes # (Manual) Eosinophils # (Manual) Basophils # (Manual) PT INR APTT Heparin Anti-Xa Level POC ABG pH POC ABG pCO2 POC ABG pO2 Sodium Potassium Chloride Carbon Dioxide BUN Creatinine Glucose POC Glucose 283 H 241 H 340 H Calcium Phosphorus Magnesium AST Alkaline Phosphatase C-Reactive Protein Total Protein Albumin Lipase Vitamin B12 TSH Urine WBC (Auto) Urine Chloride Urine Total Protein Vancomycin Trough Crossmatch 10/23/16 10/23/16 10/23/16 14:01 16:00 17:59 WBC RBC Hgb Hct MCV RDW Plt Count Lymph % (Auto) [place] % (Auto) [place] # Seg Neutrophils % Seg Neuts % (Manual) Lymphocytes % (Manual) Monocytes % (Manual) Basophils % (Manual) Nucleated RBC % Seg Neutrophils # Seg Neutrophils # Man Lymphocytes # (Manual) Monocytes # (Manual) Eosinophils # (Manual) Basophils # (Manual) PT INR APTT Heparin Anti-Xa Level 0.19 L POC ABG pH POC ABG pCO2 32.4 L POC ABG pO2 Sodium Potassium Chloride Carbon Dioxide BUN Creatinine Glucose POC Glucose 245 H Calcium Phosphorus Magnesium AST Alkaline Phosphatase C-Reactive Protein Total Protein Albumin Lipase Vitamin B12 TSH Urine WBC (Auto) Urine Chloride Urine Total Protein Vancomycin Trough Crossmatch 10/23/16 10/23/16 10/23/16 22:55 Unknown Unknown WBC 22.6 H RBC 3.26 L Hgb Hct MCV RDW 17.1 H Plt Count Lymph % (Auto) [place] % (Auto) [place] # Seg Neutrophils % Seg Neuts % (Manual) Lymphocytes % (Manual) 11.0 L Monocytes % (Manual) Basophils % (Manual) Nucleated RBC % Seg Neutrophils # Seg Neutrophils # Man 14.0 H Lymphocytes # (Manual) Monocytes # (Manual) Eosinophils # (Manual) Basophils # (Manual) PT INR APTT Heparin Anti-Xa Level 0.17 L 0.15 L POC ABG pH POC ABG pCO2 POC ABG pO2 Sodium Potassium Chloride Carbon Dioxide BUN Creatinine Glucose POC Glucose Calcium Phosphorus Magnesium AST Alkaline Phosphatase C-Reactive Protein Total Protein Albumin Lipase Vitamin B12 TSH Urine WBC (Auto) Urine Chloride Urine Total Protein Vancomycin Trough Crossmatch 10/23/16 10/24/16 10/24/16 Unknown 00:05 05:30 WBC RBC Hgb Hct MCV RDW Plt Count Lymph % (Auto) [place] % (Auto) [place] # Seg Neutrophils % Seg Neuts % (Manual) Lymphocytes % (Manual) Monocytes % (Manual) Basophils % (Manual) Nucleated RBC % Seg Neutrophils # Seg Neutrophils # Man Lymphocytes # (Manual) Monocytes # (Manual) Eosinophils # (Manual) Basophils # (Manual) PT INR APTT Heparin Anti-Xa Level 0.13 L POC ABG pH POC ABG pCO2 POC ABG pO2 Sodium Potassium Chloride 111.2 H Carbon Dioxide 20 L BUN 25 H Creatinine Glucose 227 H POC Glucose 118 H Calcium 7.1 L Phosphorus Magnesium AST Alkaline Phosphatase C-Reactive Protein Total Protein Albumin Lipase Vitamin B12 TSH Urine WBC (Auto) Urine Chloride Urine Total Protein Vancomycin Trough Crossmatch 10/24/16 10/24/16 10/24/16 11:00 11:00 12:06 WBC 17.6 H RBC 2.92 L Hgb 9.2 L Hct 28.3 L MCV RDW 16.9 H Plt Count Lymph % (Auto) [place] % (Auto) [place] # Seg Neutrophils % Seg Neuts % (Manual) Lymphocytes % (Manual) Monocytes % (Manual) Basophils % (Manual) Nucleated RBC % Seg Neutrophils # Seg Neutrophils # Man Lymphocytes # (Manual) Monocytes # (Manual) Eosinophils # (Manual) Basophils # (Manual) PT INR APTT Heparin Anti-Xa Level 0.27 L POC ABG pH POC ABG pCO2 POC ABG pO2 Sodium Potassium Chloride Carbon Dioxide BUN Creatinine Glucose POC Glucose 166 H Calcium Phosphorus Magnesium AST Alkaline Phosphatase C-Reactive Protein Total Protein Albumin Lipase Vitamin B12 TSH Urine WBC (Auto) Urine Chloride Urine Total Protein Vancomycin Trough Crossmatch 10/24/16 10/25/16 10/25/16 12:27 00:49 03:30 WBC RBC Hgb 8.8 L Hct 28.1 L MCV RDW Plt Count Lymph % (Auto) [place] % (Auto) [place] # Seg Neutrophils % Seg Neuts % (Manual) Lymphocytes % (Manual) Monocytes % (Manual) Basophils % (Manual) Nucleated RBC % Seg Neutrophils # Seg Neutrophils # Man Lymphocytes # (Manual) Monocytes # (Manual) Eosinophils # (Manual) Basophils # (Manual) PT INR APTT Heparin Anti-Xa Level POC ABG pH POC ABG pCO2 33.9 L POC ABG pO2 Sodium Potassium Chloride Carbon Dioxide BUN Creatinine Glucose POC Glucose 121 H Calcium Phosphorus Magnesium AST Alkaline Phosphatase C-Reactive Protein Total Protein Albumin Lipase Vitamin B12 TSH Urine WBC (Auto) Urine Chloride Urine Total Protein Vancomycin Trough Crossmatch 10/25/16 10/25/16 10/25/16 09:49 12:10 19:25 WBC 21.1 H RBC 3.02 L Hgb 9.3 L Hct 28.9 L MCV RDW 16.3 H Plt Count Lymph % (Auto) [place] % (Auto) [place] # Seg Neutrophils % Seg Neuts % (Manual) 81.0 H Lymphocytes % (Manual) 9.0 L Monocytes % (Manual) Basophils % (Manual) Nucleated RBC % Seg Neutrophils # Seg Neutrophils # Man 17.1 H Lymphocytes # (Manual) Monocytes # (Manual) Eosinophils # (Manual) Basophils # (Manual) PT INR APTT Heparin Anti-Xa Level POC ABG pH POC ABG pCO2 POC ABG pO2 Sodium Potassium Chloride Carbon Dioxide BUN Creatinine Glucose POC Glucose 158 H 151 H Calcium Phosphorus Magnesium AST Alkaline Phosphatase C-Reactive Protein Total Protein Albumin Lipase Vitamin B12 TSH Urine WBC (Auto) Urine Chloride Urine Total Protein Vancomycin Trough Crossmatch 10/26/16 10/26/16 10/26/16 00:20 01:09 05:02 WBC 22.2 H RBC 2.89 L Hgb 8.7 L Hct 27.8 L MCV RDW 16.4 H Plt Count Lymph % (Auto) [place] % (Auto) [place] # Seg Neutrophils % Seg Neuts % (Manual) Lymphocytes % (Manual) Monocytes % (Manual) Basophils % (Manual) Nucleated RBC % Seg Neutrophils # Seg Neutrophils # Man Lymphocytes # (Manual) Monocytes # (Manual) Eosinophils # (Manual) Basophils # (Manual) PT INR APTT Heparin Anti-Xa Level POC ABG pH POC ABG pCO2 POC ABG pO2 Sodium Potassium Chloride Carbon Dioxide BUN Creatinine Glucose POC Glucose 44 L 112 H Calcium Phosphorus Magnesium AST Alkaline Phosphatase C-Reactive Protein Total Protein Albumin Lipase Vitamin B12 TSH Urine WBC (Auto) Urine Chloride Urine Total Protein Vancomycin Trough Crossmatch 10/26/16 10/26/16 10/26/16 05:02 12:11 12:14 WBC RBC Hgb Hct MCV RDW Plt Count Lymph % (Auto) [place] % (Auto) [place] # Seg Neutrophils % Seg Neuts % (Manual) Lymphocytes % (Manual) Monocytes % (Manual) Basophils % (Manual) Nucleated RBC % Seg Neutrophils # Seg Neutrophils # Man Lymphocytes # (Manual) Monocytes # (Manual) Eosinophils # (Manual) Basophils # (Manual) PT INR APTT Heparin Anti-Xa Level POC ABG pH POC ABG pCO2 32.0 L POC ABG pO2 33 L Sodium Potassium 3.2 L D Chloride Carbon Dioxide 20 L BUN 24 H Creatinine Glucose 104 H POC Glucose 194 H Calcium 7.7 L Phosphorus Magnesium AST Alkaline Phosphatase C-Reactive Protein Total Protein Albumin Lipase Vitamin B12 TSH Urine WBC (Auto) Urine Chloride Urine Total Protein Vancomycin Trough Crossmatch 10/26/16 10/26/16 10/27/16 15:28 17:23 00:04 WBC RBC Hgb Hct MCV RDW Plt Count Lymph % (Auto) [place] % (Auto) [place] # Seg Neutrophils % Seg Neuts % (Manual) Lymphocytes % (Manual) Monocytes % (Manual) Basophils % (Manual) Nucleated RBC % Seg Neutrophils # Seg Neutrophils # Man Lymphocytes # (Manual) Monocytes # (Manual) Eosinophils # (Manual) Basophils # (Manual) PT INR APTT Heparin Anti-Xa Level POC ABG pH POC ABG pCO2 33.7 L POC ABG pO2 Sodium Potassium Chloride Carbon Dioxide BUN Creatinine Glucose POC Glucose 181 H 230 H Calcium Phosphorus Magnesium AST Alkaline Phosphatase C-Reactive Protein Total Protein Albumin Lipase Vitamin B12 TSH Urine WBC (Auto) Urine Chloride Urine Total Protein Vancomycin Trough Crossmatch 10/27/16 10/27/16 10/27/16 05:15 05:15 05:38 WBC 25.5 H RBC 3.07 L Hgb 9.4 L Hct 30.1 L MCV 98 H RDW 16.4 H Plt Count 527 H Lymph % (Auto) [place] % (Auto) [place] # Seg Neutrophils % Seg Neuts % (Manual) Lymphocytes % (Manual) Monocytes % (Manual) Basophils % (Manual) Nucleated RBC % Seg Neutrophils # Seg Neutrophils # Man Lymphocytes # (Manual) Monocytes # (Manual) Eosinophils # (Manual) Basophils # (Manual) PT INR APTT Heparin Anti-Xa Level POC ABG pH POC ABG pCO2 POC ABG pO2 Sodium Potassium Chloride Carbon Dioxide 19 L BUN 23 H Creatinine Glucose 160 H POC Glucose 168 H Calcium 8.0 L Phosphorus Magnesium AST Alkaline Phosphatase C-Reactive Protein Total Protein Albumin Lipase Vitamin B12 TSH Urine WBC (Auto) Urine Chloride Urine Total Protein Vancomycin Trough Crossmatch 10/27/16 10/27/16 10/27/16 11:59 18:35 23:48 WBC RBC Hgb Hct MCV RDW Plt Count Lymph % (Auto) [place] % (Auto) [place] # Seg Neutrophils % Seg Neuts % (Manual) Lymphocytes % (Manual) Monocytes % (Manual) Basophils % (Manual) Nucleated RBC % Seg Neutrophils # Seg Neutrophils # Man Lymphocytes # (Manual) Monocytes # (Manual) Eosinophils # (Manual) Basophils # (Manual) PT INR APTT Heparin Anti-Xa Level POC ABG pH POC ABG pCO2 POC ABG pO2 Sodium Potassium Chloride Carbon Dioxide BUN Creatinine Glucose POC Glucose 197 H 318 H 316 H Calcium Phosphorus Magnesium AST Alkaline Phosphatase C-Reactive Protein Total Protein Albumin Lipase Vitamin B12 TSH Urine WBC (Auto) Urine Chloride Urine Total Protein Vancomycin Trough Crossmatch 10/28/16 10/28/16 10/28/16 03:13 04:10 04:10 WBC 18.8 H RBC 2.64 L Hgb 8.1 L Hct 26.1 L MCV 99 H RDW 16.2 H Plt Count 544 H Lymph % (Auto) [place] % (Auto) [place] # Seg Neutrophils % Seg Neuts % (Manual) Lymphocytes % (Manual) Monocytes % (Manual) Basophils % (Manual) Nucleated RBC % Seg Neutrophils # Seg Neutrophils # Man Lymphocytes # (Manual) Monocytes # (Manual) Eosinophils # (Manual) Basophils # (Manual) PT INR APTT Heparin Anti-Xa Level POC ABG pH POC ABG pCO2 POC ABG pO2 Sodium Potassium Chloride Carbon Dioxide 21 L BUN 24 H Creatinine Glucose 302 H POC Glucose 304 H Calcium 7.7 L Phosphorus Magnesium AST Alkaline Phosphatase C-Reactive Protein Total Protein Albumin Lipase Vitamin B12 TSH Urine WBC (Auto) Urine Chloride Urine Total Protein Vancomycin Trough Crossmatch 10/28/16 10/28/16 10/28/16 04:10 12:36 18:27 WBC RBC Hgb Hct MCV RDW Plt Count Lymph % (Auto) [place] % (Auto) [place] # Seg Neutrophils % Seg Neuts % (Manual) Lymphocytes % (Manual) Monocytes % (Manual) Basophils % (Manual) Nucleated RBC % Seg Neutrophils # Seg Neutrophils # Man Lymphocytes # (Manual) Monocytes # (Manual) Eosinophils # (Manual) Basophils # (Manual) PT INR APTT Heparin Anti-Xa Level 0.20 L POC ABG pH POC ABG pCO2 POC ABG pO2 Sodium Potassium Chloride Carbon Dioxide BUN Creatinine Glucose POC Glucose 205 H 339 H Calcium Phosphorus Magnesium AST Alkaline Phosphatase C-Reactive Protein Total Protein Albumin Lipase Vitamin B12 TSH Urine WBC (Auto) Urine Chloride Urine Total Protein Vancomycin Trough Crossmatch 10/29/16 10/29/16 10/29/16 01:05 06:19 09:30 WBC 20.3 H RBC 2.80 L Hgb 8.5 L Hct 26.7 L MCV RDW 15.4 H Plt Count 571 H Lymph % (Auto) [place] % (Auto) [place] # Seg Neutrophils % Seg Neuts % (Manual) 75.0 H Lymphocytes % (Manual) 4.0 L Monocytes % (Manual) Basophils % (Manual) Nucleated RBC % Seg Neutrophils # Seg Neutrophils # Man 15.2 H Lymphocytes # (Manual) 0.8 L Monocytes # (Manual) Eosinophils # (Manual) Basophils # (Manual) PT INR APTT Heparin Anti-Xa Level POC ABG pH POC ABG pCO2 POC ABG pO2 Sodium Potassium Chloride Carbon Dioxide BUN Creatinine Glucose POC Glucose 275 H 179 H Calcium Phosphorus Magnesium AST Alkaline Phosphatase C-Reactive Protein Total Protein Albumin Lipase Vitamin B12 TSH Urine WBC (Auto) Urine Chloride Urine Total Protein Vancomycin Trough Crossmatch 10/29/16 10/29/16 10/29/16 11:46 15:18 17:55 WBC RBC Hgb Hct MCV RDW Plt Count Lymph % (Auto) [place] % (Auto) [place] # Seg Neutrophils % Seg Neuts % (Manual) Lymphocytes % (Manual) Monocytes % (Manual) Basophils % (Manual) Nucleated RBC % Seg Neutrophils # Seg Neutrophils # Man Lymphocytes # (Manual) Monocytes # (Manual) Eosinophils # (Manual) Basophils # (Manual) PT INR APTT Heparin Anti-Xa Level 1.15 H POC ABG pH POC ABG pCO2 POC ABG pO2 Sodium Potassium Chloride Carbon Dioxide BUN Creatinine Glucose POC Glucose 122 H 255 H Calcium Phosphorus Magnesium AST Alkaline Phosphatase C-Reactive Protein Total Protein Albumin Lipase Vitamin B12 TSH Urine WBC (Auto) Urine Chloride Urine Total Protein Vancomycin Trough Crossmatch 10/30/16 10/30/16 10/30/16 00:10 05:30 05:30 WBC 19.8 H RBC 2.51 L Hgb 7.7 L Hct 24.1 L MCV RDW 15.5 H Plt Count 534 H Lymph % (Auto) [place] % (Auto) [place] # Seg Neutrophils % Seg Neuts % (Manual) Lymphocytes % (Manual) Monocytes % (Manual) Basophils % (Manual) Nucleated RBC % Seg Neutrophils # Seg Neutrophils # Man Lymphocytes # (Manual) Monocytes # (Manual) Eosinophils # (Manual) Basophils # (Manual) PT INR APTT Heparin Anti-Xa Level POC ABG pH POC ABG pCO2 POC ABG pO2 Sodium Potassium Chloride Carbon Dioxide BUN Creatinine Glucose 211 H POC Glucose 202 H Calcium 7.4 L Phosphorus Magnesium AST Alkaline Phosphatase C-Reactive Protein Total Protein Albumin Lipase Vitamin B12 TSH Urine WBC (Auto) Urine Chloride Urine Total Protein Vancomycin Trough Crossmatch 10/30/16 10/30/16 10/30/16 06:32 12:51 17:47 WBC RBC Hgb Hct MCV RDW Plt Count Lymph % (Auto) [place] % (Auto) [place] # Seg Neutrophils % Seg Neuts % (Manual) Lymphocytes % (Manual) Monocytes % (Manual) Basophils % (Manual) Nucleated RBC % Seg Neutrophils # Seg Neutrophils # Man Lymphocytes # (Manual) Monocytes # (Manual) Eosinophils # (Manual) Basophils # (Manual) PT INR APTT Heparin Anti-Xa Level POC ABG pH POC ABG pCO2 POC ABG pO2 Sodium Potassium Chloride Carbon Dioxide BUN Creatinine Glucose POC Glucose 207 H 218 H 169 H Calcium Phosphorus Magnesium AST Alkaline Phosphatase C-Reactive Protein Total Protein Albumin Lipase Vitamin B12 TSH Urine WBC (Auto) Urine Chloride Urine Total Protein Vancomycin Trough Crossmatch 10/30/16 10/31/16 10/31/16 23:59 05:25 11:21 WBC RBC Hgb Hct MCV RDW Plt Count Lymph % (Auto) [place] % (Auto) [place] # Seg Neutrophils % Seg Neuts % (Manual) Lymphocytes % (Manual) Monocytes % (Manual) Basophils % (Manual) Nucleated RBC % Seg Neutrophils # Seg Neutrophils # Man Lymphocytes # (Manual) Monocytes # (Manual) Eosinophils # (Manual) Basophils # (Manual) PT INR APTT Heparin Anti-Xa Level POC ABG pH POC ABG pCO2 POC ABG pO2 Sodium Potassium Chloride Carbon Dioxide BUN Creatinine Glucose POC Glucose 138 H 127 H 132 H Calcium Phosphorus Magnesium AST Alkaline Phosphatase C-Reactive Protein Total Protein Albumin Lipase Vitamin B12 TSH Urine WBC (Auto) Urine Chloride Urine Total Protein Vancomycin Trough Crossmatch 10/31/16 10/31/16 11/01/16 17:07 23:54 05:47 WBC RBC Hgb Hct MCV RDW Plt Count Lymph % (Auto) [place] % (Auto) [place] # Seg Neutrophils % Seg Neuts % (Manual) Lymphocytes % (Manual) Monocytes % (Manual) Basophils % (Manual) Nucleated RBC % Seg Neutrophils # Seg Neutrophils # Man Lymphocytes # (Manual) Monocytes # (Manual) Eosinophils # (Manual) Basophils # (Manual) PT INR APTT Heparin Anti-Xa Level POC ABG pH POC ABG pCO2 POC ABG pO2 Sodium Potassium Chloride Carbon Dioxide BUN Creatinine Glucose POC Glucose 138 H 153 H 150 H Calcium Phosphorus Magnesium AST Alkaline Phosphatase C-Reactive Protein Total Protein Albumin Lipase Vitamin B12 TSH Urine WBC (Auto) Urine Chloride Urine Total Protein Vancomycin Trough Crossmatch 11/01/16 11/01/16 11/01/16 06:33 06:33 12:16 WBC 19.2 H RBC 2.51 L Hgb 7.9 L Hct 24.8 L MCV 99 H D RDW 16.1 H Plt Count 569 H Lymph % (Auto) [place] % (Auto) [place] # Seg Neutrophils % Seg Neuts % (Manual) Lymphocytes % (Manual) Monocytes % (Manual) Basophils % (Manual) Nucleated RBC % Seg Neutrophils # Seg Neutrophils # Man Lymphocytes # (Manual) Monocytes # (Manual) Eosinophils # (Manual) Basophils # (Manual) PT INR APTT Heparin Anti-Xa Level POC ABG pH POC ABG pCO2 POC ABG pO2 Sodium Potassium 3.5 L Chloride Carbon Dioxide 21 L BUN Creatinine Glucose 137 H POC Glucose 125 H Calcium 7.7 L Phosphorus Magnesium AST Alkaline Phosphatase 148 H C-Reactive Protein Total Protein 6.2 L Albumin 2.0 L Lipase Vitamin B12 TSH Urine WBC (Auto) Urine Chloride Urine Total Protein Vancomycin Trough Crossmatch 11/01/16 11/02/16 11/02/16 17:37 00:05 04:15 WBC RBC Hgb Hct MCV RDW Plt Count Lymph % (Auto) [place] % (Auto) [place] # Seg Neutrophils % Seg Neuts % (Manual) Lymphocytes % (Manual) Monocytes % (Manual) Basophils % (Manual) Nucleated RBC % Seg Neutrophils # Seg Neutrophils # Man Lymphocytes # (Manual) Monocytes # (Manual) Eosinophils # (Manual) Basophils # (Manual) PT INR APTT Heparin Anti-Xa Level < 0.10 L POC ABG pH POC ABG pCO2 POC ABG pO2 Sodium Potassium 3.2 L Chloride Carbon Dioxide BUN 6 L Creatinine Glucose 135 H POC Glucose 164 H Calcium 7.5 L Phosphorus Magnesium AST Alkaline Phosphatase 132 H C-Reactive Protein Total Protein 6.2 L Albumin 1.8 L Lipase Vitamin B12 TSH Urine WBC (Auto) Urine Chloride Urine Total Protein Vancomycin Trough Crossmatch 11/02/16 11/02/16 11/02/16 04:15 05:54 12:15 WBC 17.7 H RBC 2.43 L Hgb 7.6 L Hct 23.5 L MCV RDW 15.9 H Plt Count 502 H Lymph % (Auto) [place] % (Auto) [place] # Seg Neutrophils % Seg Neuts % (Manual) 84.0 H Lymphocytes % (Manual) 11.0 L Monocytes % (Manual) Basophils % (Manual) Nucleated RBC % 1.0 H Seg Neutrophils # Seg Neutrophils # Man 14.9 H Lymphocytes # (Manual) Monocytes # (Manual) Eosinophils # (Manual) Basophils # (Manual) PT INR APTT Heparin Anti-Xa Level POC ABG pH POC ABG pCO2 POC ABG pO2 Sodium Potassium Chloride Carbon Dioxide BUN Creatinine Glucose POC Glucose 152 H 137 H Calcium Phosphorus Magnesium AST Alkaline Phosphatase C-Reactive Protein Total Protein Albumin Lipase Vitamin B12 TSH Urine WBC (Auto) Urine Chloride Urine Total Protein Vancomycin Trough Crossmatch 11/02/16 11/03/16 11/03/16 17:00 00:05 00:05 WBC RBC Hgb Hct MCV RDW Plt Count Lymph % (Auto) [place] % (Auto) [place] # Seg Neutrophils % Seg Neuts % (Manual) Lymphocytes % (Manual) Monocytes % (Manual) Basophils % (Manual) Nucleated RBC % Seg Neutrophils # Seg Neutrophils # Man Lymphocytes # (Manual) Monocytes # (Manual) Eosinophils # (Manual) Basophils # (Manual) PT INR APTT Heparin Anti-Xa Level POC ABG pH POC ABG pCO2 POC ABG pO2 Sodium Potassium Chloride Carbon Dioxide 20 L BUN 5 L Creatinine Glucose 139 H POC Glucose 161 H Calcium 6.7 L Phosphorus Magnesium 1.2 L AST Alkaline Phosphatase C-Reactive Protein Total Protein Albumin Lipase Vitamin B12 TSH Urine WBC (Auto) Urine Chloride Urine Total Protein Vancomycin Trough Crossmatch 11/03/16 11/03/16 11/03/16 00:05 02:05 04:23 WBC 15.9 H 14.0 H RBC 1.93 L 2.38 L Hgb 5.9 L* 7.3 L Hct 18.9 L* 23.1 L MCV 98 H RDW 15.9 H 15.9 H Plt Count Lymph % (Auto) [place] % (Auto) [place] # Seg Neutrophils % Seg Neuts % (Manual) 85.0 H Lymphocytes % (Manual) 4.0 L Monocytes % (Manual) Basophils % (Manual) Nucleated RBC % Seg Neutrophils # Seg Neutrophils # Man 13.5 H Lymphocytes # (Manual) 0.6 L Monocytes # (Manual) Eosinophils # (Manual) Basophils # (Manual) PT INR APTT Heparin Anti-Xa Level POC ABG pH POC ABG pCO2 POC ABG pO2 Sodium Potassium Chloride Carbon Dioxide BUN 5 L Creatinine Glucose 127 H POC Glucose Calcium 7.2 L Phosphorus Magnesium AST Alkaline Phosphatase C-Reactive Protein Total Protein 5.8 L Albumin 1.5 L Lipase Vitamin B12 TSH Urine WBC (Auto) Urine Chloride Urine Total Protein Vancomycin Trough Crossmatch 11/03/16 11/03/16 11/03/16 09:14 09:27 11:54 WBC RBC Hgb Hct MCV RDW Plt Count Lymph % (Auto) [place] % (Auto) [place] # Seg Neutrophils % Seg Neuts % (Manual) Lymphocytes % (Manual) Monocytes % (Manual) Basophils % (Manual) Nucleated RBC % Seg Neutrophils # Seg Neutrophils # Man Lymphocytes # (Manual) Monocytes # (Manual) Eosinophils # (Manual) Basophils # (Manual) PT INR APTT Heparin Anti-Xa Level 0.11 L POC ABG pH POC ABG pCO2 POC ABG pO2 Sodium Potassium Chloride Carbon Dioxide BUN 5 L Creatinine Glucose 111 H POC Glucose 139 H Calcium 6.7 L Phosphorus Magnesium AST Alkaline Phosphatase C-Reactive Protein Total Protein Albumin Lipase Vitamin B12 TSH Urine WBC (Auto) Urine Chloride Urine Total Protein Vancomycin Trough Crossmatch 11/03/16 11/03/16 11/03/16 16:26 18:01 18:01 WBC RBC Hgb Hct MCV RDW Plt Count Lymph % (Auto) [place] % (Auto) [place] # Seg Neutrophils % Seg Neuts % (Manual) Lymphocytes % (Manual) Monocytes % (Manual) Basophils % (Manual) Nucleated RBC % Seg Neutrophils # Seg Neutrophils # Man Lymphocytes # (Manual) Monocytes # (Manual) Eosinophils # (Manual) Basophils # (Manual) PT INR APTT Heparin Anti-Xa Level 2.00 H POC ABG pH POC ABG pCO2 POC ABG pO2 Sodium Potassium Chloride Carbon Dioxide BUN Creatinine Glucose POC Glucose 142 H Calcium Phosphorus Magnesium AST Alkaline Phosphatase C-Reactive Protein Total Protein Albumin Lipase Vitamin B12 TSH Urine WBC (Auto) Urine Chloride Urine Total Protein Vancomycin Trough Crossmatch See Detail 11/04/16 11/04/16 11/04/16 02:15 02:15 06:35 WBC 11.8 H RBC 2.39 L Hgb 7.4 L Hct 23.1 L MCV RDW 15.9 H Plt Count Lymph % (Auto) [place] % (Auto) [place] # Seg Neutrophils % Seg Neuts % (Manual) 76.0 H Lymphocytes % (Manual) 12.0 L Monocytes % (Manual) 9.0 H Basophils % (Manual) Nucleated RBC % Seg Neutrophils # Seg Neutrophils # Man 9.0 H Lymphocytes # (Manual) Monocytes # (Manual) 1.1 H Eosinophils # (Manual) Basophils # (Manual) PT INR APTT Heparin Anti-Xa Level < 0.10 L POC ABG pH POC ABG pCO2 POC ABG pO2 Sodium Potassium Chloride Carbon Dioxide 21 L BUN 5 L Creatinine Glucose 112 H POC Glucose Calcium 6.8 L Phosphorus Magnesium AST Alkaline Phosphatase C-Reactive Protein Total Protein 5.7 L Albumin 1.7 L Lipase Vitamin B12 TSH Urine WBC (Auto) Urine Chloride Urine Total Protein Vancomycin Trough Crossmatch 11/04/16 11/04/16 11/04/16 10:51 12:58 15:04 WBC RBC Hgb Hct MCV RDW Plt Count Lymph % (Auto) [place] % (Auto) [place] # Seg Neutrophils % Seg Neuts % (Manual) Lymphocytes % (Manual) Monocytes % (Manual) Basophils % (Manual) Nucleated RBC % Seg Neutrophils # Seg Neutrophils # Man Lymphocytes # (Manual) Monocytes # (Manual) Eosinophils # (Manual) Basophils # (Manual) PT INR APTT Heparin Anti-Xa Level 1.05 H POC ABG pH POC ABG pCO2 33.7 L POC ABG pO2 60 L Sodium Potassium Chloride Carbon Dioxide BUN Creatinine Glucose POC Glucose 118 H Calcium Phosphorus Magnesium AST Alkaline Phosphatase C-Reactive Protein Total Protein Albumin Lipase Vitamin B12 TSH Urine WBC (Auto) Urine Chloride Urine Total Protein Vancomycin Trough Crossmatch 11/04/16 11/04/16 11/05/16 17:20 20:31 02:30 WBC RBC Hgb Hct MCV RDW Plt Count Lymph % (Auto) [place] % (Auto) [place] # Seg Neutrophils % Seg Neuts % (Manual) Lymphocytes % (Manual) Monocytes % (Manual) Basophils % (Manual) Nucleated RBC % Seg Neutrophils # Seg Neutrophils # Man Lymphocytes # (Manual) Monocytes # (Manual) Eosinophils # (Manual) Basophils # (Manual) PT INR APTT Heparin Anti-Xa Level POC ABG pH POC ABG pCO2 POC ABG pO2 Sodium Potassium 3.5 L Chloride Carbon Dioxide 18 L BUN 5 L Creatinine 0.6 L Glucose 110 H POC Glucose 228 H 169 H Calcium 7.1 L Phosphorus Magnesium AST Alkaline Phosphatase C-Reactive Protein Total Protein Albumin 1.9 L Lipase Vitamin B12 TSH Urine WBC (Auto) Urine Chloride Urine Total Protein Vancomycin Trough Crossmatch 11/05/16 11/05/16 11/05/16 02:30 17:52 21:07 WBC 14.1 H RBC Hgb Hct MCV RDW 16.7 H Plt Count Lymph % (Auto) [place] % (Auto) [place] # Seg Neutrophils % Seg Neuts % (Manual) 80.0 H Lymphocytes % (Manual) 6.0 L Monocytes % (Manual) 8.0 H Basophils % (Manual) Nucleated RBC % Seg Neutrophils # Seg Neutrophils # Man 11.3 H Lymphocytes # (Manual) 0.8 L Monocytes # (Manual) 1.1 H Eosinophils # (Manual) Basophils # (Manual) PT INR APTT Heparin Anti-Xa Level < 0.10 L POC ABG pH POC ABG pCO2 POC ABG pO2 Sodium Potassium Chloride Carbon Dioxide BUN Creatinine Glucose POC Glucose 174 H Calcium Phosphorus Magnesium AST Alkaline Phosphatase C-Reactive Protein Total Protein Albumin Lipase Vitamin B12 TSH Urine WBC (Auto) Urine Chloride Urine Total Protein Vancomycin Trough Crossmatch 11/05/16 11/06/16 11/06/16 23:30 05:00 05:00 WBC 15.2 H RBC 3.29 L Hgb 10.0 L Hct MCV RDW 16.9 H Plt Count Lymph % (Auto) [place] % (Auto) [place] # Seg Neutrophils % Seg Neuts % (Manual) Lymphocytes % (Manual) Monocytes % (Manual) Basophils % (Manual) Nucleated RBC % Seg Neutrophils # Seg Neutrophils # Man Lymphocytes # (Manual) Monocytes # (Manual) Eosinophils # (Manual) Basophils # (Manual) PT INR APTT Heparin Anti-Xa Level 0.94 H POC ABG pH POC ABG pCO2 POC ABG pO2 Sodium Potassium Chloride Carbon Dioxide BUN Creatinine Glucose POC Glucose 131 H Calcium Phosphorus Magnesium AST Alkaline Phosphatase C-Reactive Protein Total Protein Albumin Lipase Vitamin B12 TSH Urine WBC (Auto) Urine Chloride Urine Total Protein Vancomycin Trough Crossmatch 11/06/16 11/06/16 11/06/16 05:00 11:45 18:23 WBC RBC Hgb Hct MCV RDW Plt Count Lymph % (Auto) [place] % (Auto) [place] # Seg Neutrophils % Seg Neuts % (Manual) Lymphocytes % (Manual) Monocytes % (Manual) Basophils % (Manual) Nucleated RBC % Seg Neutrophils # Seg Neutrophils # Man Lymphocytes # (Manual) Monocytes # (Manual) Eosinophils # (Manual) Basophils # (Manual) PT INR APTT Heparin Anti-Xa Level POC ABG pH POC ABG pCO2 POC ABG pO2 Sodium Potassium 3.5 L Chloride 107.1 H Carbon Dioxide 20 L BUN 4 L Creatinine 0.6 L Glucose 104 H POC Glucose 141 H 255 H Calcium 6.7 L Phosphorus Magnesium AST Alkaline Phosphatase C-Reactive Protein Total Protein Albumin Lipase Vitamin B12 TSH Urine WBC (Auto) Urine Chloride Urine Total Protein Vancomycin Trough Crossmatch 11/06/16 11/06/16 11/07/16 22:07 23:07 11:41 WBC RBC Hgb Hct MCV RDW Plt Count Lymph % (Auto) [place] % (Auto) [place] # Seg Neutrophils % Seg Neuts % (Manual) Lymphocytes % (Manual) Monocytes % (Manual) Basophils % (Manual) Nucleated RBC % Seg Neutrophils # Seg Neutrophils # Man Lymphocytes # (Manual) Monocytes # (Manual) Eosinophils # (Manual) Basophils # (Manual) PT INR APTT Heparin Anti-Xa Level 0.80 H POC ABG pH POC ABG pCO2 POC ABG pO2 Sodium Potassium Chloride Carbon Dioxide BUN Creatinine Glucose POC Glucose 183 H 132 H Calcium Phosphorus Magnesium AST Alkaline Phosphatase C-Reactive Protein Total Protein Albumin Lipase Vitamin B12 TSH Urine WBC (Auto) Urine Chloride Urine Total Protein Vancomycin Trough Crossmatch 11/07/16 11/07/16 11/07/16 12:17 17:05 17:58 WBC RBC Hgb Hct MCV RDW Plt Count Lymph % (Auto) [place] % (Auto) [place] # Seg Neutrophils % Seg Neuts % (Manual) Lymphocytes % (Manual) Monocytes % (Manual) Basophils % (Manual) Nucleated RBC % Seg Neutrophils # Seg Neutrophils # Man Lymphocytes # (Manual) Monocytes # (Manual) Eosinophils # (Manual) Basophils # (Manual) PT INR APTT Heparin Anti-Xa Level 0.87 H POC ABG pH 7.324 L POC ABG pCO2 POC ABG pO2 Sodium Potassium Chloride Carbon Dioxide BUN Creatinine Glucose POC Glucose 158 H Calcium Phosphorus Magnesium AST Alkaline Phosphatase C-Reactive Protein Total Protein Albumin Lipase Vitamin B12 TSH Urine WBC (Auto) Urine Chloride Urine Total Protein Vancomycin Trough Crossmatch 11/07/16 11/07/16 11/07/16 23:26 Unknown Unknown WBC 12.3 H RBC 2.96 L Hgb 9.1 L Hct 27.9 L MCV RDW 16.8 H Plt Count Lymph % (Auto) [place] % (Auto) [place] # Seg Neutrophils % Seg Neuts % (Manual) 80.0 H Lymphocytes % (Manual) 7.0 L Monocytes % (Manual) Basophils % (Manual) Nucleated RBC % Seg Neutrophils # Seg Neutrophils # Man 9.8 H Lymphocytes # (Manual) 0.9 L Monocytes # (Manual) Eosinophils # (Manual) Basophils # (Manual) PT INR APTT Heparin Anti-Xa Level POC ABG pH POC ABG pCO2 POC ABG pO2 Sodium Potassium Chloride Carbon Dioxide 19 L BUN Creatinine Glucose 106 H POC Glucose 130 H Calcium 6.9 L Phosphorus Magnesium AST Alkaline Phosphatase C-Reactive Protein Total Protein Albumin Lipase Vitamin B12 TSH Urine WBC (Auto) Urine Chloride Urine Total Protein Vancomycin Trough Crossmatch 11/07/16 11/08/16 11/08/16 Unknown 05:14 05:20 WBC 12.4 H RBC 3.04 L Hgb 9.2 L Hct 28.8 L MCV RDW 16.6 H Plt Count Lymph % (Auto) [place] % (Auto) [place] # Seg Neutrophils % Seg Neuts % (Manual) 77.0 H Lymphocytes % (Manual) 5.0 L Monocytes % (Manual) Basophils % (Manual) 2.0 H Nucleated RBC % Seg Neutrophils # Seg Neutrophils # Man 9.5 H Lymphocytes # (Manual) 0.6 L Monocytes # (Manual) Eosinophils # (Manual) Basophils # (Manual) 0.2 H PT INR APTT Heparin Anti-Xa Level 0.90 H POC ABG pH POC ABG pCO2 POC ABG pO2 Sodium Potassium Chloride Carbon Dioxide BUN Creatinine Glucose POC Glucose 204 H Calcium Phosphorus Magnesium AST Alkaline Phosphatase C-Reactive Protein Total Protein Albumin Lipase Vitamin B12 TSH Urine WBC (Auto) Urine Chloride Urine Total Protein Vancomycin Trough Crossmatch 11/08/16 11/08/16 11/08/16 05:20 12:10 13:10 WBC RBC Hgb Hct MCV RDW Plt Count Lymph % (Auto) [place] % (Auto) [place] # Seg Neutrophils % Seg Neuts % (Manual) Lymphocytes % (Manual) Monocytes % (Manual) Basophils % (Manual) Nucleated RBC % Seg Neutrophils # Seg Neutrophils # Man Lymphocytes # (Manual) Monocytes # (Manual) Eosinophils # (Manual) Basophils # (Manual) PT INR APTT Heparin Anti-Xa Level POC ABG pH POC ABG pCO2 33.7 L POC ABG pO2 Sodium 136 L Potassium Chloride Carbon Dioxide 19 L BUN Creatinine Glucose 192 H POC Glucose 180 H Calcium 7.1 L Phosphorus Magnesium AST Alkaline Phosphatase C-Reactive Protein Total Protein Albumin Lipase Vitamin B12 TSH Urine WBC (Auto) Urine Chloride Urine Total Protein Vancomycin Trough Crossmatch 11/08/16 11/08/16 11/08/16 17:26 20:45 23:34 WBC RBC Hgb Hct MCV RDW Plt Count Lymph % (Auto) [place] % (Auto) [place] # Seg Neutrophils % Seg Neuts % (Manual) Lymphocytes % (Manual) Monocytes % (Manual) Basophils % (Manual) Nucleated RBC % Seg Neutrophils # Seg Neutrophils # Man Lymphocytes # (Manual) Monocytes # (Manual) Eosinophils # (Manual) Basophils # (Manual) PT INR APTT Heparin Anti-Xa Level POC ABG pH POC ABG pCO2 POC ABG pO2 Sodium Potassium Chloride Carbon Dioxide BUN Creatinine Glucose POC Glucose 187 H 178 H Calcium Phosphorus Magnesium AST Alkaline Phosphatase C-Reactive Protein Total Protein Albumin Lipase Vitamin B12 TSH Urine WBC (Auto) Urine Chloride Urine Total Protein Vancomycin Trough 35.4 H Crossmatch 11/09/16 11/09/16 11/09/16 05:30 05:30 05:59 WBC 11.5 H RBC 2.96 L Hgb 9.2 L Hct 28.2 L MCV RDW 16.4 H Plt Count Lymph % (Auto) [place] % (Auto) [place] # Seg Neutrophils % Seg Neuts % (Manual) 76.0 H Lymphocytes % (Manual) 2.0 L Monocytes % (Manual) Basophils % (Manual) Nucleated RBC % Seg Neutrophils # Seg Neutrophils # Man 8.7 H Lymphocytes # (Manual) 0.2 L Monocytes # (Manual) Eosinophils # (Manual) Basophils # (Manual) PT INR APTT Heparin Anti-Xa Level POC ABG pH POC ABG pCO2 POC ABG pO2 Sodium Potassium 3.4 L Chloride 107.6 H Carbon Dioxide 19 L BUN Creatinine 0.6 L Glucose 207 H POC Glucose 263 H Calcium 7.3 L Phosphorus Magnesium AST Alkaline Phosphatase C-Reactive Protein Total Protein Albumin Lipase Vitamin B12 TSH Urine WBC (Auto) Urine Chloride Urine Total Protein Vancomycin Trough Crossmatch 11/09/16 11/09/16 11/09/16 11:49 15:24 18:04 WBC RBC Hgb Hct MCV RDW Plt Count Lymph % (Auto) [place] % (Auto) [place] # Seg Neutrophils % Seg Neuts % (Manual) Lymphocytes % (Manual) Monocytes % (Manual) Basophils % (Manual) Nucleated RBC % Seg Neutrophils # Seg Neutrophils # Man Lymphocytes # (Manual) Monocytes # (Manual) Eosinophils # (Manual) Basophils # (Manual) PT INR APTT Heparin Anti-Xa Level POC ABG pH POC ABG pCO2 33.8 L POC ABG pO2 131 H Sodium Potassium Chloride Carbon Dioxide BUN Creatinine Glucose POC Glucose 269 H 242 H Calcium Phosphorus Magnesium AST Alkaline Phosphatase C-Reactive Protein Total Protein Albumin Lipase Vitamin B12 TSH Urine WBC (Auto) Urine Chloride Urine Total Protein Vancomycin Trough Crossmatch 11/09/16 11/10/16 11/10/16 22:57 04:30 04:30 WBC 15.7 H RBC 3.17 L Hgb 9.7 L Hct 30.2 L MCV RDW 16.2 H Plt Count Lymph % (Auto) [place] % (Auto) [place] # Seg Neutrophils % Seg Neuts % (Manual) Lymphocytes % (Manual) Monocytes % (Manual) Basophils % (Manual) Nucleated RBC % Seg Neutrophils # Seg Neutrophils # Man 8.5 H Lymphocytes # (Manual) Monocytes # (Manual) Eosinophils # (Manual) 0.5 H Basophils # (Manual) PT INR APTT Heparin Anti-Xa Level POC ABG pH POC ABG pCO2 POC ABG pO2 Sodium Potassium Chloride Carbon Dioxide 19 L BUN Creatinine 0.6 L Glucose 199 H POC Glucose 239 H Calcium 7.8 L Phosphorus Magnesium AST Alkaline Phosphatase C-Reactive Protein Total Protein Albumin Lipase Vitamin B12 TSH Urine WBC (Auto) Urine Chloride Urine Total Protein Vancomycin Trough Crossmatch 11/10/16 11/10/16 11/10/16 04:30 11:32 16:00 WBC RBC Hgb Hct MCV RDW Plt Count Lymph % (Auto) [place] % (Auto) [place] # Seg Neutrophils % Seg Neuts % (Manual) Lymphocytes % (Manual) Monocytes % (Manual) Basophils % (Manual) Nucleated RBC % Seg Neutrophils # Seg Neutrophils # Man Lymphocytes # (Manual) Monocytes # (Manual) Eosinophils # (Manual) Basophils # (Manual) PT INR APTT Heparin Anti-Xa Level 1.09 H < 0.10 L POC ABG pH POC ABG pCO2 POC ABG pO2 Sodium Potassium Chloride Carbon Dioxide BUN Creatinine Glucose POC Glucose 211 H Calcium Phosphorus Magnesium AST Alkaline Phosphatase C-Reactive Protein Total Protein Albumin Lipase Vitamin B12 TSH Urine WBC (Auto) Urine Chloride Urine Total Protein Vancomycin Trough Crossmatch 11/10/16 11/10/16 11/10/16 17:39 18:00 23:06 WBC RBC Hgb Hct MCV RDW Plt Count Lymph % (Auto) [place] % (Auto) [place] # Seg Neutrophils % Seg Neuts % (Manual) Lymphocytes % (Manual) Monocytes % (Manual) Basophils % (Manual) Nucleated RBC % Seg Neutrophils # Seg Neutrophils # Man Lymphocytes # (Manual) Monocytes # (Manual) Eosinophils # (Manual) Basophils # (Manual) PT INR APTT Heparin Anti-Xa Level 0.85 H POC ABG pH POC ABG pCO2 POC ABG pO2 Sodium Potassium Chloride Carbon Dioxide BUN Creatinine Glucose POC Glucose 249 H 220 H Calcium Phosphorus Magnesium AST Alkaline Phosphatase C-Reactive Protein Total Protein Albumin Lipase Vitamin B12 TSH Urine WBC (Auto) Urine Chloride Urine Total Protein Vancomycin Trough Crossmatch 11/11/16 11/11/16 11/11/16 05:56 06:15 06:15 WBC 13.3 H RBC 2.87 L Hgb 8.7 L Hct 27.2 L MCV RDW 16.4 H Plt Count Lymph % (Auto) [place] % (Auto) [place] # 0.9 H Seg Neutrophils % 78.9 H Seg Neuts % (Manual) Lymphocytes % (Manual) Monocytes % (Manual) Basophils % (Manual) Nucleated RBC % Seg Neutrophils # 10.5 H Seg Neutrophils # Man Lymphocytes # (Manual) Monocytes # (Manual) Eosinophils # (Manual) Basophils # (Manual) PT INR APTT Heparin Anti-Xa Level POC ABG pH POC ABG pCO2 POC ABG pO2 Sodium Potassium 3.2 L Chloride Carbon Dioxide 19 L BUN Creatinine Glucose POC Glucose 117 H Calcium 7.6 L Phosphorus Magnesium AST Alkaline Phosphatase C-Reactive Protein Total Protein Albumin Lipase Vitamin B12 TSH Urine WBC (Auto) Urine Chloride Urine Total Protein Vancomycin Trough Crossmatch 11/11/16 12:26 WBC RBC Hgb Hct MCV RDW Plt Count Lymph % (Auto) [place] % (Auto) [place] # Seg Neutrophils % Seg Neuts % (Manual) Lymphocytes % (Manual) Monocytes % (Manual) Basophils % (Manual) Nucleated RBC % Seg Neutrophils # Seg Neutrophils # Man Lymphocytes # (Manual) Monocytes # (Manual) Eosinophils # (Manual) Basophils # (Manual) PT INR APTT Heparin Anti-Xa Level POC ABG pH POC ABG pCO2 POC ABG pO2 Sodium Potassium Chloride Carbon Dioxide BUN Creatinine Glucose POC Glucose 114 H Calcium Phosphorus Magnesium AST Alkaline Phosphatase C-Reactive Protein Total Protein Albumin Lipase Vitamin B12 TSH Urine WBC (Auto) Urine Chloride Urine Total Protein Vancomycin Trough Crossmatch Allied health notes reviewed: RT
[2016-11-11] MEDS: DILAUDID IV PRN (13:48)
--- NOTE | 2016-11-11 16:26 | Progress Note ---
Subjective Date of service: 11/11/16 Principal diagnosis: respiratory failure on mechanical ventilatory support, DKA Interval history: AWAKE. Fever Vital signs - Temp 101.6 CHEST - GOOD AIR ENTRY CVS - S1S2 ABD - BS_ LABS See lab section. ASSESSMENT 1. Sepsis 2. dka 3. resp failure 4. htn 5. clostridium difficile colitis 6. bilateral pneumonia 6. RIGHT LEG GANGRENE s/p amputation RECOMMENDATION 1. CONTINUE IV clindamycin. Levaquin iv restarted. Continue iv vancomycin 2. cbc/bmp in am Objective - Constitutional Vitals: Vital Signs Temp Pulse Resp BP Pulse Ox 101.9 F H 107 H 30 H 136/68 98 11/11/16 12:00 11/11/16 16:00 11/11/16 16:00 11/11/16 16:00 11/11/16 16:00 Temperature -Last 24 Hours Temperature 101.9 F Temperature 99.3 F Temperature 99.0 F Temperature 98.9 F Temperature 98.8 F - Labs CBC & Chem 7: 11/11/16 06:15 11/11/16 06:15 Labs: Abnormal lab results 11/09/16 11/10/16 11/10/16 Range/Units 22:57 16:00 17:39 WBC (4.5-11.0) K/mm3 RBC (3.65-5.03) M/mm3 Hgb (10.1-14.3) gm/dl Hct (30.3-42.9) % RDW (13.2-15.2) % [place] # (0.0-0.8) K/mm3 Seg Neutrophils % (40.0-70.0) % Seg Neutrophils # (1.8-7.7) K/mm3 Heparin Anti-Xa Level < 0.10 L (0.3-0.7) U.I./ml Potassium (3.6-5.0) mmol/L Carbon Dioxide (22-30) mmol/L POC Glucose 239 H 249 H (70-105) Calcium (8.4-10.2) mg/dL 11/10/16 11/10/16 11/11/16 Range/Units 18:00 23:06 05:56 WBC (4.5-11.0) K/mm3 RBC (3.65-5.03) M/mm3 Hgb (10.1-14.3) gm/dl Hct (30.3-42.9) % RDW (13.2-15.2) % [place] # (0.0-0.8) K/mm3 Seg Neutrophils % (40.0-70.0) % Seg Neutrophils # (1.8-7.7) K/mm3 Heparin Anti-Xa Level 0.85 H (0.3-0.7) U.I./ml Potassium (3.6-5.0) mmol/L Carbon Dioxide (22-30) mmol/L POC Glucose 220 H 117 H (70-105) Calcium (8.4-10.2) mg/dL 11/11/16 11/11/16 11/11/16 Range/Units 06:15 06:15 12:26 WBC 13.3 H (4.5-11.0) K/mm3 RBC 2.87 L (3.65-5.03) M/mm3 Hgb 8.7 L (10.1-14.3) gm/dl Hct 27.2 L (30.3-42.9) % RDW 16.4 H (13.2-15.2) % [place] # 0.9 H (0.0-0.8) K/mm3 Seg Neutrophils % 78.9 H (40.0-70.0) % Seg Neutrophils # 10.5 H (1.8-7.7) K/mm3 Heparin Anti-Xa Level (0.3-0.7) U.I./ml Potassium 3.2 L (3.6-5.0) mmol/L Carbon Dioxide 19 L (22-30) mmol/L POC Glucose 114 H (70-105) Calcium 7.6 L (8.4-10.2) mg/dL
[2016-11-11] MEDS ORDERED: VANCOMYCIN PHARMACY TO DOSE IV SCH (17:00)
[2016-11-11] MEDS ORDERED: HEPARIN 10,000 UNITS/10 ML IV ONE (20:46)
[2016-11-11] MEDS: LEVAQUIN 750MG/150ML 750 MG/150 ML BAG IV SCH (22:33)
[2016-11-12] MEDS: HEPARIN/ 0.45% NACL-25,000 UNIT/500 ML 25,000 UNITS/500 ML BAG IV SCH ×2 (04:13→20:22)
[2016-11-12] MEDS: LOPRESSOR FEEDTUBE SCH ×4 (04:14→22:00)
[2016-11-12 05:40] LABS: Basophils % (Auto) 0.2 % (0.0-1.8); Eosinophils % (Auto) 0.2 % (0.0-4.3); Hematocrit 25.7 % (30.3-42.9); Hemoglobin 8.4 gm/dl (10.1-14.3); Mean Corpuscular HGB Conc 33 % (30-34); Mean Corpuscular Hemoglobin 30 pg (28-32); Mean Corpuscular Volume 94 fl (79-97); Platelet Count 328 K/mm3 (140-440); Red Blood Count 2.75 M/mm3 (3.65-5.03); Red Cell Distribution Width 16.3 % (13.2-15.2); White Blood Count 12.8 K/mm3 (4.5-11.0)
[2016-11-12] MEDS ORDERED: VANCOMYCIN VIAL 1,500 MG in NACL 0.9% 500 ML 500 ML IV ONE (06:00)
[2016-11-12 06:16] LABS: Anion Gap 20 mmol/L; Blood Urea Nitrogen 8 mg/dL (7-17); Calcium 7.7 mg/dL (8.4-10.2); Carbon Dioxide 19 mmol/L (22-30); Chloride 105.9 mmol/L (98-107); Glucose 112 mg/dL (65-100); Potassium 3.4 mmol/L (3.6-5.0); Sodium 141 mmol/L (137-145)
[2016-11-12] MEDS: REGLAN IV SCH ×3 (06:20→18:31)
[2016-11-12] MEDS: DILAUDID IV PRN ×3 (09:51→22:03)
[2016-11-12] MEDS: PLAVIX PO SCH (09:52)
[2016-11-12] MEDS: PEPCID PO SCH ×2 (09:52→22:04)
--- NOTE | 2016-11-12 11:18 | Progress Note ---
Assessment and Plan Continue metoprolol 50 mg Q8H. - Patient Problems (1) Sinus tachycardia Current Visit: Yes Status: Acute (2) Respiratory failure Current Visit: Yes Status: Chronic Qualifiers: Chronicity: C Respiratory failure complication: R (3) Sepsis Current Visit: Yes Status: Acute Qualifiers: Sepsis type: S (4) DVT (deep venous thrombosis) Current Visit: Yes Status: Acute Qualifiers: DVT location: D Affected thrombotic vein of extremity: A Laterality: L Chronicity: C (5) Anemia Current Visit: No Status: Acute Qualifiers: Anemia type: A Iron deficiency anemia type: I Vitamin B12 deficiency anemia type: V Folate deficiency anemia type: F Bone marrow failure anemia type: B Hemolytic anemia type: H Other causes of anemia: O (6) PVD (peripheral vascular disease) Current Visit: Yes Status: Chronic (7) Diabetes Current Visit: No Status: Chronic Qualifiers: Diabetes mellitus type: D Diabetes mellitus complication status: D Diabetes mellitus complication detail: D Diabetic retinopathy severity: D Proliferative retinopathy type: P Diabetes mellitus macular edema: D Diabetes mellitus intermediate frame tender insulin use: D Laterality: L Chronic kidney disease stage: C Subjective Date of service: 11/12/16 Principal diagnosis: respiratory failure on mechanical ventilatory support, DKA Interval history: The patient is resting in bed. No new complaints. Sinus rhythm-sinus tach on the monitor. Objective Last Vital Signs Temp 98.8 F 11/12/16 08:00 Pulse 98 H 11/12/16 10:00 Resp 18 11/12/16 10:00 BP 134/76 11/12/16 09:00 Pulse Ox 100 11/12/16 09:00 - Physical Examination General: No Apparent Distress HEENT: Positive: Normocephaly, Mucus Membranes Moist Neck: Positive: neck supple, trachea midline, Other (trach) Cardiac: Positive: Reg Rate and Rhythm, S1/S2 Lungs: Positive: clear to auscultation Neuro: Positive: Grossly Intact Abdomen: Positive: Soft Skin: Positive: Clear. Negative: Rash Extremities: Present: normal, Other (right below-knee amputation left leg no edema). Absent: edema - Labs and Meds CBC 11/12/16 Range/Units 05:00 WBC 12.8 H (4.5-11.0) K/mm3 RBC 2.75 L (3.65-5.03) M/mm3 Hgb 8.4 L (10.1-14.3) gm/dl Hct 25.7 L (30.3-42.9) % Plt Count 328 (140-440) K/mm3 Lymph # 1.8 (1.2-5.4) K/mm3 [place] # 1.0 H (0.0-0.8) K/mm3 Eos # 0.0 (0.0-0.4) K/mm3 Baso # 0.0 (0.0-0.1) K/mm3 Comprehensive Metabolic Panel 11/12/16 Range/Units 05:00 Sodium 141 (137-145) mmol/L Potassium 3.4 L (3.6-5.0) mmol/L Chloride 105.9 (98-107) mmol/L Carbon Dioxide 19 L (22-30) mmol/L BUN 8 (7-17) mg/dL Creatinine 0.8 (0.7-1.2) mg/dL Glucose 112 H (65-100) mg/dL Calcium 7.7 L (8.4-10.2) mg/dL - Imaging and Cardiology Echo: report reviewed (tds 10/24/2016 normal LV function with no significant regurgitations) - Telemetry EKG Rhythm: Sinus Rhythm - Allied health notes Allied health notes reviewed: RT
--- NOTE | 2016-11-12 11:38 | Progress Note ---
Assessment and Plan Assessment and plan: 1. Acute respiratory failure with hypercapnia. Vent supported. s/p Trach and PEG. Continue with bronchodilators and wean as tolerated. 2. Diabetes mellitus type II. DKA resolved. Continue Sliding scale insulin 3. Sepsis- Leukocytosis Improving Suspected due to UTI, urine has only grown Paula, sputum cultures grew group B strep, continue broad-spectrum antibiotics, infectious disease input appreciated 4. 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/right lower extremity gangrene. The patient is status post recent right below the knee amputation. Patient currently on heparin drip. 5. Hypokalemia: Supplement potassium as needed 6. Toxic metabolic encephalopathy. Continue supportive care. 7. Sinus Tachycardia. Physiologic secondary to sepsis. 8. Anemia. Multifactorial including sepsis. s/p transfusion of PRBCs. Continue to follow H&H. 9. RUE DVT. Patient currently on heparin drip. 10. Abdominal pain. KUB reveals gastric distention but otherwise normal. No evidence of obstruction. Continue NG tube to suction. Consider GI consultation. History Interval history: No new issues overnight. Patient continues to have left-sided abdominal pain. Hospitalist Physical - Constitutional Vitals: Temp Pulse Resp BP Pulse Ox 98.8 F 98 H 18 134/76 100 11/12/16 08:00 11/12/16 10:00 11/12/16 10:00 11/12/16 09:00 11/12/16 09:00 General appearance: Present: no acute distress - EENT Eyes: Present: PERRL, EOM intact ENT: hearing intact, clear oral mucosa, dentition normal - Neck Neck: Present: supple, normal ROM - Respiratory Respiratory effort: normal Respiratory: bilateral: CTA - Cardiovascular Rhythm: regular Heart Sounds: Present: S1 & S2. Absent: gallop, rub - Extremities Extremities: no ischemia, No edema, Full ROM - Abdominal General gastrointestinal: soft, tender, non-distended, normal bowel sounds Localized gastrointestinal: tender: LUQ (mild), LLQ (mild) - Integumentary Integumentary: Present: clear, warm, dry - Neurologic Neurologic: CNII-XII intact, moves all extremities Results - Labs CBC & Chem 7: 11/12/16 05:00 11/12/16 05:00 Labs: Laboratory Last Values WBC 12.8 K/mm3 (4.5-11.0) H 11/12/16 05:00 RBC 2.75 M/mm3 (3.65-5.03) L 11/12/16 05:00 Hgb 8.4 gm/dl (10.1-14.3) L 11/12/16 05:00 Hct 25.7 % (30.3-42.9) L 11/12/16 05:00 MCV 94 fl (79-97) 11/12/16 05:00 MCH 30 pg (28-32) 11/12/16 05:00 MCHC 33 % (30-34) 11/12/16 05:00 RDW 16.3 % (13.2-15.2) H 11/12/16 05:00 Plt Count 328 K/mm3 (140-440) 11/12/16 05:00 Lymph % (Auto) 14.1 % (13.4-35.0) 11/12/16 05:00 [place] % (Auto) 7.5 % (0.0-7.3) H 11/12/16 05:00 Eos % (Auto) 0.2 % (0.0-4.3) 11/12/16 05:00 Baso % (Auto) 0.2 % (0.0-1.8) 11/12/16 05:00 Lymph # 1.8 K/mm3 (1.2-5.4) 11/12/16 05:00 [place] # 1.0 K/mm3 (0.0-0.8) H 11/12/16 05:00 Eos # 0.0 K/mm3 (0.0-0.4) 11/12/16 05:00 Baso # 0.0 K/mm3 (0.0-0.1) 11/12/16 05:00 Add Manual Diff Complete 11/10/16 04:30 Total Counted 100 11/10/16 04:30 Seg Neutrophils % 78.0 % (40.0-70.0) H 11/12/16 05:00 Seg Neuts % (Manual) 54.0 % (40.0-70.0) 11/10/16 04:30 Band Neutrophils % 13.0 % 11/10/16 04:30 Lymphocytes % (Manual) 15.0 % (13.4-35.0) 11/10/16 04:30 Reactive Lymphs % (Man) 1.0 % 11/10/16 04:30 Monocytes % (Manual) 3.0 % (0.0-7.3) 11/10/16 04:30 Eosinophils % (Manual) 3.0 % (0.0-4.3) 11/10/16 04:30 Basophils % (Manual) 0 % (0.0-1.8) 11/10/16 04:30 Metamyelocytes % 5.0 % 11/10/16 04:30 Myelocytes % 0 % 11/10/16 04:30 Promyelocytes % 6.0 % 11/10/16 04:30 Blast Cells % 0 % 11/10/16 04:30 Nucleated RBC % Not Reportable 11/10/16 04:30 Seg Neutrophils # 10.0 K/mm3 (1.8-7.7) H 11/12/16 05:00 Seg Neutrophils # Man 8.5 K/mm3 (1.8-7.7) H 11/10/16 04:30 Band Neutrophils # 2.0 K/mm3 11/10/16 04:30 Lymphocytes # (Manual) 2.4 K/mm3 (1.2-5.4) 11/10/16 04:30 Abs React Lymphs (Man) 0.2 K/mm3 11/10/16 04:30 Monocytes # (Manual) 0.5 K/mm3 (0.0-0.8) 11/10/16 04:30 Eosinophils # (Manual) 0.5 K/mm3 (0.0-0.4) H 11/10/16 04:30 Basophils # (Manual) 0.0 K/mm3 (0.0-0.1) 11/10/16 04:30 Metamyelocytes # 0.8 K/mm3 11/10/16 04:30 Myelocytes # 0.0 K/mm3 11/10/16 04:30 Promyelocytes # 0.9 K/mm3 11/10/16 04:30 Blast Cells # 0.0 K/mm3 11/10/16 04:30 Pathologist Review 10/29/16 09:30 WBC Morphology Not Reportable 11/10/16 04:30 Hypersegmented Neuts Not Reportable 11/10/16 04:30 Hyposegmented Neuts Not Reportable 11/10/16 04:30 Hypogranular Neuts Not Reportable 11/10/16 04:30 Hypersegmented Polys TNR 10/17/16 07:08 Smudge Cells Few 11/10/16 04:30 Toxic Granulation Not Reportable 11/10/16 04:30 Toxic Vacuolation Not Reportable 11/10/16 04:30 Dohle Bodies Not Reportable 11/10/16 04:30 Pelger-Huet Anomaly Not Reportable 11/10/16 04:30 [place] Rods Not Reportable 11/10/16 04:30 Platelet Estimate Appears normal 11/10/16 04:30 Clumped Platelets Not Reportable 11/10/16 04:30 Plt Clumps, EDTA Not Reportable 11/10/16 04:30 Large Platelets Not Reportable 11/10/16 04:30 Giant Platelets Not Reportable 11/10/16 04:30 Platelet Satelliting Not Reportable 11/10/16 04:30 Plt Morphology Comment Not Reportable 11/10/16 04:30 RBC Morphology Not Reportable 11/10/16 04:30 Dimorphic RBCs Not Reportable 11/10/16 04:30 Polychromasia Rare 11/10/16 04:30 Hypochromasia Not Reportable 11/10/16 04:30 Poikilocytosis Not Reportable 11/10/16 04:30 Basophilic Stippling TNR 10/17/16 07:08 Anisocytosis 1+ 11/10/16 04:30 Microcytosis Not Reportable 11/10/16 04:30 Macrocytosis Not Reportable 11/10/16 04:30 Spherocytes Not Reportable 11/10/16 04:30 Pappenheimer Bodies Not Reportable 11/10/16 04:30 Sickle Cells Not Reportable 11/10/16 04:30 Target Cells Not Reportable 11/10/16 04:30 Tear Drop Cells Not Reportable 11/10/16 04:30 Ovalocytes Few 11/10/16 04:30 Stomatocytes Few 11/03/16 00:05 Helmet Cells Not Reportable 11/10/16 04:30 [place] Bodies Not Reportable 11/10/16 04:30 [place] Rings Not Reportable 11/10/16 04:30 [place] Cells Not Reportable 11/10/16 04:30 Bite Cells Not Reportable 11/10/16 04:30 Crenated Cell Not Reportable 11/10/16 04:30 Elliptocytes Not Reportable 11/10/16 04:30 Acanthocytes (Spur) Not Reportable 11/10/16 04:30 Rouleaux Not Reportable 11/10/16 04:30 Hemoglobin C Crystals Not Reportable 11/10/16 04:30 Schistocytes Not Reportable 11/10/16 04:30 Malaria parasites Not Reportable 11/10/16 04:30 David Bodies Not Reportable 11/10/16 04:30 Hem Pathologist Commnt No 11/10/16 04:30 PT 16.4 Sec. (12.2-14.9) H 10/17/16 16:07 INR 1.33 (0.87-1.13) H 10/17/16 16:07 APTT 38.8 Sec. (24.2-36.6) H 10/17/16 16:07 Heparin Anti-Xa Level 0.87 U.I./ml (0.3-0.7) H 11/12/16 05:00 POC ABG pH 7.353 (7.35-7.45) 11/09/16 15:24 POC ABG pCO2 33.8 (35-45) L 11/09/16 15:24 POC ABG pO2 131 (80-105) H 11/09/16 15:24 POC ABG HCO3 18.8 11/09/16 15:24 POC ABG Total CO2 20 11/09/16 15:24 POC ABG O2 Sat 99 11/09/16 15:24 POC ABG Base Excess -7 11/09/16 15:24 VBG pH 7.020 (7.320-7.420) L* 10/13/16 04:22 FiO2 28 % 11/09/16 15:24 Sodium 141 mmol/L (137-145) 11/12/16 05:00 Potassium 3.4 mmol/L (3.6-5.0) L 11/12/16 05:00 Chloride 105.9 mmol/L (98-107) 11/12/16 05:00 Carbon Dioxide 19 mmol/L (22-30) L 11/12/16 05:00 Anion Gap 20 mmol/L 11/12/16 05:00 BUN 8 mg/dL (7-17) 11/12/16 05:00 Creatinine 0.8 mg/dL (0.7-1.2) 11/12/16 05:00 Estimated GFR > 60 ml/min 11/12/16 05:00 BUN/Creatinine Ratio 10.00 % 11/12/16 05:00 Glucose 112 mg/dL (65-100) H 11/12/16 05:00 POC Glucose 98 (70-105) 11/11/16 23:59 Osmolality 332 Mosm/kg 10/14/16 07:03 Lactic Acid 1.8 mmol/L (0.7-2.0) 10/14/16 07:03 Calcium 7.7 mg/dL (8.4-10.2) L 11/12/16 05:00 Phosphorus 2.7 mg/dL (2.5-4.5) D 10/21/16 Unknown Magnesium 1.2 mg/dL (1.7-2.3) L 11/03/16 00:05 Total Bilirubin 0.3 mg/dL (0.1-1.2) 11/05/16 02:30 AST 9 units/L (5-40) 11/05/16 02:30 ALT 11 units/L (7-56) 11/05/16 02:30 Alkaline Phosphatase 119 units/L (35-129) 11/05/16 02:30 Ammonia 35.0 umol/L (25-60) 10/13/16 05:40 Total Creatine Kinase 107 units/L (30-135) 10/13/16 04:22 CK-MB (CK-2) 3.1 ng/mL (0.0-4.0) 10/13/16 04:22 CK-MB (CK-2) Rel Index 2.8 (0-4) 10/13/16 04:22 Troponin T < 0.010 ng/mL (0.00-0.029) 10/14/16 18:55 C-Reactive Protein 10.50 mg/dL (0.00-1.30) H 10/13/16 16:14 Total Protein 6.7 g/dL (6.3-8.2) 11/05/16 02:30 Albumin 1.9 g/dL (3.9-5) L 11/05/16 02:30 Albumin/Globulin Ratio 0.4 % 11/05/16 02:30 Amylase 30 units/L (27-131) 11/10/16 04:30 Lipase 41 units/L (13-60) 11/10/16 04:30 Vitamin B12 976.8 pg/mL (211-911) H 10/22/16 10:25 TSH 0.162 mlU/mL (0.270-4.200) L 10/22/16 14:50 Free T4 0.77 ng/dL (0.76-1.46) 10/22/16 14:50 Urine Color Yellow (Yellow) 10/15/16 11:05 Urine Turbidity Cloudy (Clear) 10/15/16 11:05 Urine pH 5.0 (5.0-7.0) 10/15/16 11:05 Ur Specific [place] 1.009 (1.003-1.030) 10/15/16 11:05 Urine Protein 30 mg/dl mg/dL (Negative) 10/15/16 11:05 Urine Glucose (UA) 150 mg/dL (Negative) 10/15/16 11:05 Urine Ketones Neg mg/dL (Negative) 10/15/16 11:05 Urine Blood Lg (Negative) 10/15/16 11:05 Urine Nitrite Neg (Negative) 10/15/16 11:05 Urine Bilirubin Neg (Negative) 10/15/16 11:05 Urine Urobilinogen < 2.0 mg/dL (<2.0) 10/15/16 11:05 Ur Leukocyte Esterase Neg (Negative) 10/15/16 11:05 Urine WBC (Auto) 7.0 /HPF (0.0-6.0) H 10/15/16 11:05 Urine RBC (Auto) 7.0 /HPF (0.0-6.0) 10/15/16 11:05 U Epithel Cells (Auto) 1.0 /HPF (0-13.0) 10/15/16 11:05 Urine Mucus Few /HPF 10/15/16 11:05 Urine Yeast (Budding) 2+ /HPF 10/15/16 11:05 Urine Osmolality 487 Mosm/kg 10/13/16 Unknown Urine Creatinine < 4.2 mg/dL (0.1-20.0) 10/13/16 Unknown Protein/Creatinin Ratio 0.00 10/13/16 Unknown Urine Sodium 10 mEq/L 10/13/16 Unknown Urine Potassium 1.00 mEq/L 10/13/16 Unknown Urine Chloride 10.0 mEq/L (110-250) L 10/13/16 Unknown Urine Total Protein < 4 mg/dL (5-11.8) L 10/13/16 Unknown Vancomycin Trough 35.4 ug/mL (5.0-20.0) H 11/08/16 20:45 Random Vancomycin 19.4 ug/mL (0-40.0) 11/11/16 06:15 Ketones 107.3 mg/dL (0.2-2.8) H 10/13/16 04:22 Blood Type A POSITIVE 11/03/16 18:01 Antibody Screen Negative 11/03/16 18:01 Crossmatch See Detail 11/03/16 18:01
--- NOTE | 2016-11-12 12:34 | Progress Note ---
Subjective Date of service: 11/12/16 Principal diagnosis: respiratory failure on mechanical ventilatory support, DKA Interval history: No new issues Vital signs - Temp 98 CHEST - GOOD AIR ENTRY CVS - S1S2 ABD - BS_ LABS See lab section. ASSESSMENT 1. Sepsis 2. dka 3. resp failure 4. htn 5. clostridium difficile colitis 6. bilateral pneumonia 6. RIGHT LEG GANGRENE s/p amputation RECOMMENDATION 1. continue iv abx 2. cbc/bmp in am Objective - Constitutional Vitals: Vital Signs Temp Pulse Resp BP Pulse Ox 98.8 F 98 H 18 134/76 100 11/12/16 08:00 11/12/16 10:00 11/12/16 10:00 11/12/16 09:00 11/12/16 09:00 Temperature -Last 24 Hours Temperature 98.8 F Temperature 98.2 F Temperature 98.2 F Temperature 98.0 F Temperature 101.0 F - Labs CBC & Chem 7: 11/12/16 05:00 11/12/16 05:00 Labs: Abnormal lab results 11/11/16 11/11/16 11/12/16 Range/Units 16:58 17:33 05:00 WBC 12.8 H (4.5-11.0) K/mm3 RBC 2.75 L (3.65-5.03) M/mm3 Hgb 8.4 L (10.1-14.3) gm/dl Hct 25.7 L (30.3-42.9) % RDW 16.3 H (13.2-15.2) % [place] % (Auto) 7.5 H (0.0-7.3) % [place] # 1.0 H (0.0-0.8) K/mm3 Seg Neutrophils % 78.0 H (40.0-70.0) % Seg Neutrophils # 10.0 H (1.8-7.7) K/mm3 Heparin Anti-Xa Level < 0.10 L (0.3-0.7) U.I./ml Potassium (3.6-5.0) mmol/L Carbon Dioxide (22-30) mmol/L Glucose (65-100) mg/dL POC Glucose 161 H (70-105) Calcium (8.4-10.2) mg/dL 11/12/16 11/12/16 Range/Units 05:00 05:00 WBC (4.5-11.0) K/mm3 RBC (3.65-5.03) M/mm3 Hgb (10.1-14.3) gm/dl Hct (30.3-42.9) % RDW (13.2-15.2) % [place] % (Auto) (0.0-7.3) % [place] # (0.0-0.8) K/mm3 Seg Neutrophils % (40.0-70.0) % Seg Neutrophils # (1.8-7.7) K/mm3 Heparin Anti-Xa Level 0.87 H (0.3-0.7) U.I./ml Potassium 3.4 L (3.6-5.0) mmol/L Carbon Dioxide 19 L (22-30) mmol/L Glucose 112 H (65-100) mg/dL POC Glucose (70-105) Calcium 7.7 L (8.4-10.2) mg/dL
[2016-11-12] MEDS ORDERED: POTASSIUM CHLORIDE FEEDTUBE ONE (13:00)
--- NOTE | 2016-11-12 14:47 | Progress Note ---
Assessment and Plan - Patient Problems (1) Acute respiratory failure with hypercapnia Current Visit: Yes Status: Acute Plan to address problem: - continue aspiration precautions / VAP bundles - continue bronchodilators and pulmonary toilet - continue to wean oxygen to keep sats > 94% - CXR pending - continue daily bedside SBT's as tolerated (2) Altered mental status Current Visit: Yes Status: Acute Qualifiers: Altered mental status type: A Coma depth: C Coma timing: C Plan to address problem: - no active seizures - following clinically - seen by neurology and will follow their recommendations - no seizures on EEG - more appropriate clinically (3) LUCY (acute kidney injury) Current Visit: Yes Status: Acute Plan to address problem: - resolved - following I's & O's (4) DKA (diabetic ketoacidoses) Current Visit: Yes Status: Acute Qualifiers: Diabetes mellitus type: D Diabetes mellitus complication detail: D Plan to address problem: - resolved - continue SSI (5) Sepsis Current Visit: No Status: Acute Qualifiers: Sepsis type: S Plan to address problem: - continue anti-infectives per ID recs - follow clinically (improved) - trend lactate and CRP prn - improving numbers post amputation (6) Emesis Current Visit: Yes Status: Acute Qualifiers: Vomiting type: V Vomiting Intractability: V Nausea presence: N Plan to address problem: (KUB with gastric and some bowel dialatation) - NGT to LIS - increased reglan dose - reduce fentanyl dose and use other sedative (re: opiates and G.I. motility) - continue aspiration precautions - GI consulted (7) Discharge planning issues Current Visit: No Status: Acute Plan to address problem: ...hopefully weans well, tolerates t-piece and can soon transfer out of ICU ...for now remains critically ill on life sustaining treatments including MVS and at high risk for further deterioration including ...32' CCT Subjective Date of service: 11/12/16 Principal diagnosis: respiratory failure on mechanical ventilatory support, DKA Interval history: Seen and examined at bedside; 24 hour events reviewed; nursing and respiratory care staff consulted; no adverse overnight events reported to me; remains on MVS ; complaining of some abdominal pain; no hematochezia or melena; still not tolerating weaning well Objective Vital Signs - 12hr 11/12/16 11/12/16 11/12/16 03:00 04:00 05:00 Temperature 98.2 F Pulse Rate 97 H 91 H 98 H Pulse Rate [ From Monitor] Respiratory 20 15 14 Rate Respiratory Rate [Right Leg ] Blood Pressure 128/70 127/67 129/68 O2 Sat by Pulse 97 99 100 Oximetry 11/12/16 11/12/16 11/12/16 06:00 07:00 08:00 Temperature 98.8 F Pulse Rate 92 H 105 H 96 H Pulse Rate [ From Monitor] Respiratory 19 23 24 Rate Respiratory Rate [Right Leg ] Blood Pressure 120/61 131/86 130/71 O2 Sat by Pulse 99 100 99 Oximetry 11/12/16 11/12/16 11/12/16 08:10 09:00 09:51 Temperature Pulse Rate 98 H Pulse Rate [ 98 H From Monitor] Respiratory 19 18 Rate Respiratory Rate [Right Leg ] Blood Pressure 134/76 O2 Sat by Pulse 98 100 Oximetry 11/12/16 11/12/16 11/12/16 10:00 11:00 12:00 Temperature 98.9 F Pulse Rate 94 H 104 H 116 H Pulse Rate [ From Monitor] Respiratory 24 17 18 Rate Respiratory 18 Rate [Right Leg ] Blood Pressure 139/69 141/73 148/77 O2 Sat by Pulse 98 98 99 Oximetry Constitutional: no acute distress, other (sedated) Eyes: non-icteric ENT: oropharynx moist Neck: supple, no lymphadenopathy Effort: mildly labored Ascultation: Bilateral: diminished breath sounds, rales Cardiovascular: regular rate and rhythm, other (tachycardia) Gastrointestinal: normoactive bowel sounds, soft, non-tender, non-distended Integumentary: normal Extremities: no cyanosis, no edema, no ischemia or petechiae, other (s/p right BKA) Neurologic: non-focal exam (grossly), pupils equal and round, other (sedated) Psychiatric: other (sedated) CBC and BMP: 11/14/16 04:42 11/14/16 04:42 ABG, PT/INR, D-dimer: ABG POC ABG pH 7.353 (7.35-7.45) 11/09/16 15:24 POC ABG pCO2 33.8 (35-45) L 11/09/16 15:24 POC ABG pO2 131 (80-105) H 11/09/16 15:24 POC ABG HCO3 18.8 11/09/16 15:24 POC ABG Total CO2 20 11/09/16 15:24 POC ABG O2 Sat 99 11/09/16 15:24 PT/INR, D-dimer PT 16.4 Sec. (12.2-14.9) H 10/17/16 16:07 INR 1.33 (0.87-1.13) H 10/17/16 16:07 Abnormal lab findings: Abnormal Labs 10/13/16 10/13/16 10/13/16 06:38 06:38 07:23 WBC RBC Hgb Hct MCV RDW Plt Count Lymph % (Auto) [place] % (Auto) [place] # Seg Neutrophils % Seg Neuts % (Manual) Lymphocytes % (Manual) Monocytes % (Manual) Basophils % (Manual) Nucleated RBC % Seg Neutrophils # Seg Neutrophils # Man Lymphocytes # (Manual) Monocytes # (Manual) Eosinophils # (Manual) Basophils # (Manual) PT INR APTT Heparin Anti-Xa Level POC ABG pH POC ABG pCO2 POC ABG pO2 Sodium Potassium 6.2 H* Chloride Carbon Dioxide 8 L* BUN 85 H Creatinine 2.8 H Glucose 602 H* POC Glucose 495 H Calcium 7.9 L Phosphorus 6.9 H D Magnesium 3.0 H AST Alkaline Phosphatase C-Reactive Protein Total Protein Albumin Lipase Vitamin B12 TSH Urine WBC (Auto) Urine Chloride Urine Total Protein Vancomycin Trough Crossmatch 10/13/16 10/13/16 10/13/16 08:49 08:55 10:12 WBC RBC Hgb Hct MCV RDW Plt Count Lymph % (Auto) [place] % (Auto) [place] # Seg Neutrophils % Seg Neuts % (Manual) Lymphocytes % (Manual) Monocytes % (Manual) Basophils % (Manual) Nucleated RBC % Seg Neutrophils # Seg Neutrophils # Man Lymphocytes # (Manual) Monocytes # (Manual) Eosinophils # (Manual) Basophils # (Manual) PT INR APTT Heparin Anti-Xa Level POC ABG pH POC ABG pCO2 POC ABG pO2 Sodium Potassium 5.6 H Chloride Carbon Dioxide 11 L BUN 77 H Creatinine 2.7 H Glucose 457 H POC Glucose > 500 H 424 H Calcium 8.0 L Phosphorus Magnesium AST Alkaline Phosphatase C-Reactive Protein Total Protein Albumin Lipase Vitamin B12 TSH Urine WBC (Auto) Urine Chloride Urine Total Protein Vancomycin Trough Crossmatch 10/13/16 10/13/16 10/13/16 10:44 11:22 12:20 WBC RBC Hgb Hct MCV RDW Plt Count Lymph % (Auto) [place] % (Auto) [place] # Seg Neutrophils % Seg Neuts % (Manual) Lymphocytes % (Manual) Monocytes % (Manual) Basophils % (Manual) Nucleated RBC % Seg Neutrophils # Seg Neutrophils # Man Lymphocytes # (Manual) Monocytes # (Manual) Eosinophils # (Manual) Basophils # (Manual) PT INR APTT Heparin Anti-Xa Level POC ABG pH POC ABG pCO2 POC ABG pO2 Sodium Potassium 5.4 H Chloride Carbon Dioxide 14 L BUN 72 H Creatinine 2.6 H Glucose 383 H POC Glucose 391 H 313 H Calcium 8.2 L Phosphorus Magnesium AST Alkaline Phosphatase C-Reactive Protein Total Protein Albumin Lipase Vitamin B12 TSH Urine WBC (Auto) Urine Chloride Urine Total Protein Vancomycin Trough Crossmatch 10/13/16 10/13/16 10/13/16 13:32 14:44 15:57 WBC RBC Hgb Hct MCV RDW Plt Count Lymph % (Auto) [place] % (Auto) [place] # Seg Neutrophils % Seg Neuts % (Manual) Lymphocytes % (Manual) Monocytes % (Manual) Basophils % (Manual) Nucleated RBC % Seg Neutrophils # Seg Neutrophils # Man Lymphocytes # (Manual) Monocytes # (Manual) Eosinophils # (Manual) Basophils # (Manual) PT INR APTT Heparin Anti-Xa Level POC ABG pH POC ABG pCO2 POC ABG pO2 Sodium Potassium Chloride Carbon Dioxide BUN Creatinine Glucose POC Glucose 296 H 210 H 190 H Calcium Phosphorus Magnesium AST Alkaline Phosphatase C-Reactive Protein Total Protein Albumin Lipase Vitamin B12 TSH Urine WBC (Auto) Urine Chloride Urine Total Protein Vancomycin Trough Crossmatch 10/13/16 10/13/16 10/13/16 16:14 16:14 17:17 WBC RBC Hgb Hct MCV RDW Plt Count Lymph % (Auto) [place] % (Auto) [place] # Seg Neutrophils % Seg Neuts % (Manual) Lymphocytes % (Manual) Monocytes % (Manual) Basophils % (Manual) Nucleated RBC % Seg Neutrophils # Seg Neutrophils # Man Lymphocytes # (Manual) Monocytes # (Manual) Eosinophils # (Manual) Basophils # (Manual) PT INR APTT Heparin Anti-Xa Level POC ABG pH POC ABG pCO2 POC ABG pO2 Sodium Potassium Chloride Carbon Dioxide 17 L BUN 58 H Creatinine 1.8 H Glucose 172 H POC Glucose 193 H Calcium 7.7 L Phosphorus Magnesium AST Alkaline Phosphatase C-Reactive Protein 10.50 H Total Protein Albumin Lipase Vitamin B12 TSH Urine WBC (Auto) Urine Chloride Urine Total Protein Vancomycin Trough Crossmatch 10/13/16 10/13/16 10/13/16 17:55 18:32 19:41 WBC RBC Hgb Hct MCV RDW Plt Count Lymph % (Auto) [place] % (Auto) [place] # Seg Neutrophils % Seg Neuts % (Manual) Lymphocytes % (Manual) Monocytes % (Manual) Basophils % (Manual) Nucleated RBC % Seg Neutrophils # Seg Neutrophils # Man Lymphocytes # (Manual) Monocytes # (Manual) Eosinophils # (Manual) Basophils # (Manual) PT INR APTT Heparin Anti-Xa Level POC ABG pH POC ABG pCO2 30.6 L POC ABG pO2 218 H Sodium Potassium Chloride Carbon Dioxide BUN Creatinine Glucose POC Glucose 192 H 177 H Calcium Phosphorus Magnesium AST Alkaline Phosphatase C-Reactive Protein Total Protein Albumin Lipase Vitamin B12 TSH Urine WBC (Auto) Urine Chloride Urine Total Protein Vancomycin Trough Crossmatch 10/13/16 10/13/16 10/13/16 20:54 22:07 23:13 WBC RBC Hgb Hct MCV RDW Plt Count Lymph % (Auto) [place] % (Auto) [place] # Seg Neutrophils % Seg Neuts % (Manual) Lymphocytes % (Manual) Monocytes % (Manual) Basophils % (Manual) Nucleated RBC % Seg Neutrophils # Seg Neutrophils # Man Lymphocytes # (Manual) Monocytes # (Manual) Eosinophils # (Manual) Basophils # (Manual) PT INR APTT Heparin Anti-Xa Level POC ABG pH POC ABG pCO2 POC ABG pO2 Sodium Potassium Chloride Carbon Dioxide BUN Creatinine Glucose POC Glucose 178 H 160 H 168 H Calcium Phosphorus Magnesium AST Alkaline Phosphatase C-Reactive Protein Total Protein Albumin Lipase Vitamin B12 TSH Urine WBC (Auto) Urine Chloride Urine Total Protein Vancomycin Trough Crossmatch 10/13/16 10/13/16 10/14/16 23:25 Unknown 00:21 WBC RBC Hgb Hct MCV RDW Plt Count Lymph % (Auto) [place] % (Auto) [place] # Seg Neutrophils % Seg Neuts % (Manual) Lymphocytes % (Manual) Monocytes % (Manual) Basophils % (Manual) Nucleated RBC % Seg Neutrophils # Seg Neutrophils # Man Lymphocytes # (Manual) Monocytes # (Manual) Eosinophils # (Manual) Basophils # (Manual) PT INR APTT Heparin Anti-Xa Level POC ABG pH POC ABG pCO2 POC ABG pO2 Sodium 148 H Potassium Chloride 114.6 H Carbon Dioxide 17 L BUN 56 H Creatinine 1.6 H Glucose 151 H POC Glucose 171 H Calcium 7.8 L Phosphorus Magnesium AST Alkaline Phosphatase C-Reactive Protein Total Protein Albumin Lipase Vitamin B12 TSH Urine WBC (Auto) Urine Chloride 10.0 L Urine Total Protein < 4 L Vancomycin Trough Crossmatch 10/14/16 10/14/16 10/14/16 01:22 02:29 03:30 WBC RBC Hgb Hct MCV RDW Plt Count Lymph % (Auto) [place] % (Auto) [place] # Seg Neutrophils % Seg Neuts % (Manual) Lymphocytes % (Manual) Monocytes % (Manual) Basophils % (Manual) Nucleated RBC % Seg Neutrophils # Seg Neutrophils # Man Lymphocytes # (Manual) Monocytes # (Manual) Eosinophils # (Manual) Basophils # (Manual) PT INR APTT Heparin Anti-Xa Level POC ABG pH POC ABG pCO2 POC ABG pO2 Sodium Potassium Chloride Carbon Dioxide BUN Creatinine Glucose POC Glucose 144 H 136 H 143 H Calcium Phosphorus Magnesium AST Alkaline Phosphatase C-Reactive Protein Total Protein Albumin Lipase Vitamin B12 TSH Urine WBC (Auto) Urine Chloride Urine Total Protein Vancomycin Trough Crossmatch 10/14/16 10/14/16 10/14/16 04:28 05:16 05:44 WBC RBC Hgb Hct MCV RDW Plt Count Lymph % (Auto) [place] % (Auto) [place] # Seg Neutrophils % Seg Neuts % (Manual) Lymphocytes % (Manual) Monocytes % (Manual) Basophils % (Manual) Nucleated RBC % Seg Neutrophils # Seg Neutrophils # Man Lymphocytes # (Manual) Monocytes # (Manual) Eosinophils # (Manual) Basophils # (Manual) PT INR APTT Heparin Anti-Xa Level POC ABG pH POC ABG pCO2 28.2 L POC ABG pO2 125 H Sodium Potassium Chloride Carbon Dioxide BUN Creatinine Glucose POC Glucose 133 H 160 H Calcium Phosphorus Magnesium AST Alkaline Phosphatase C-Reactive Protein Total Protein Albumin Lipase Vitamin B12 TSH Urine WBC (Auto) Urine Chloride Urine Total Protein Vancomycin Trough Crossmatch 10/14/16 10/14/16 10/14/16 06:12 06:45 07:03 WBC RBC Hgb Hct MCV RDW Plt Count Lymph % (Auto) [place] % (Auto) [place] # Seg Neutrophils % Seg Neuts % (Manual) Lymphocytes % (Manual) Monocytes % (Manual) Basophils % (Manual) Nucleated RBC % Seg Neutrophils # Seg Neutrophils # Man Lymphocytes # (Manual) Monocytes # (Manual) Eosinophils # (Manual) Basophils # (Manual) PT INR APTT Heparin Anti-Xa Level POC ABG pH POC ABG pCO2 POC ABG pO2 Sodium 149 H Potassium Chloride 115.4 H Carbon Dioxide 17 L BUN 45 H Creatinine 1.5 H Glucose 139 H POC Glucose 149 H Calcium 7.4 L Phosphorus 1.0 L D Magnesium AST Alkaline Phosphatase C-Reactive Protein Total Protein Albumin Lipase Vitamin B12 TSH Urine WBC (Auto) Urine Chloride Urine Total Protein Vancomycin Trough Crossmatch 10/14/16 10/14/16 10/14/16 07:03 08:02 09:16 WBC RBC Hgb Hct MCV RDW Plt Count Lymph % (Auto) [place] % (Auto) [place] # Seg Neutrophils % Seg Neuts % (Manual) Lymphocytes % (Manual) Monocytes % (Manual) Basophils % (Manual) Nucleated RBC % Seg Neutrophils # Seg Neutrophils # Man Lymphocytes # (Manual) Monocytes # (Manual) Eosinophils # (Manual) Basophils # (Manual) PT INR APTT Heparin Anti-Xa Level POC ABG pH POC ABG pCO2 POC ABG pO2 Sodium Potassium Chloride Carbon Dioxide BUN Creatinine Glucose POC Glucose 156 H 158 H Calcium Phosphorus Magnesium AST Alkaline Phosphatase C-Reactive Protein Total Protein Albumin Lipase 738 H Vitamin B12 TSH Urine WBC (Auto) Urine Chloride Urine Total Protein Vancomycin Trough Crossmatch 10/14/16 10/14/16 10/14/16 10:26 11:03 11:57 WBC RBC Hgb Hct MCV RDW Plt Count Lymph % (Auto) [place] % (Auto) [place] # Seg Neutrophils % Seg Neuts % (Manual) Lymphocytes % (Manual) Monocytes % (Manual) Basophils % (Manual) Nucleated RBC % Seg Neutrophils # Seg Neutrophils # Man Lymphocytes # (Manual) Monocytes # (Manual) Eosinophils # (Manual) Basophils # (Manual) PT INR APTT Heparin Anti-Xa Level POC ABG pH 7.198 L POC ABG pCO2 47.5 H POC ABG pO2 Sodium Potassium Chloride Carbon Dioxide BUN Creatinine Glucose POC Glucose 174 H 189 H Calcium Phosphorus Magnesium AST Alkaline Phosphatase C-Reactive Protein Total Protein Albumin Lipase Vitamin B12 TSH Urine WBC (Auto) Urine Chloride Urine Total Protein Vancomycin Trough Crossmatch 10/14/16 10/14/16 10/14/16 12:02 12:02 13:11 WBC 13.4 H RBC 3.60 L Hgb Hct MCV 98 H D RDW 13.1 L Plt Count Lymph % (Auto) [place] % (Auto) [place] # Seg Neutrophils % Seg Neuts % (Manual) Lymphocytes % (Manual) Monocytes % (Manual) Basophils % (Manual) Nucleated RBC % Seg Neutrophils # Seg Neutrophils # Man Lymphocytes # (Manual) Monocytes # (Manual) Eosinophils # (Manual) Basophils # (Manual) PT INR APTT Heparin Anti-Xa Level POC ABG pH POC ABG pCO2 POC ABG pO2 Sodium Potassium Chloride 110.7 H Carbon Dioxide 19 L BUN 38 H Creatinine 1.4 H Glucose 182 H POC Glucose 173 H Calcium 7.5 L Phosphorus Magnesium AST Alkaline Phosphatase C-Reactive Protein Total Protein Albumin Lipase Vitamin B12 TSH Urine WBC (Auto) Urine Chloride Urine Total Protein Vancomycin Trough Crossmatch 10/14/16 10/14/16 10/14/16 14:24 15:31 16:36 WBC RBC Hgb Hct MCV RDW Plt Count Lymph % (Auto) [place] % (Auto) [place] # Seg Neutrophils % Seg Neuts % (Manual) Lymphocytes % (Manual) Monocytes % (Manual) Basophils % (Manual) Nucleated RBC % Seg Neutrophils # Seg Neutrophils # Man Lymphocytes # (Manual) Monocytes # (Manual) Eosinophils # (Manual) Basophils # (Manual) PT INR APTT Heparin Anti-Xa Level POC ABG pH POC ABG pCO2 POC ABG pO2 Sodium Potassium Chloride Carbon Dioxide BUN Creatinine Glucose POC Glucose 123 H 124 H 156 H Calcium Phosphorus Magnesium AST Alkaline Phosphatase C-Reactive Protein Total Protein Albumin Lipase Vitamin B12 TSH Urine WBC (Auto) Urine Chloride Urine Total Protein Vancomycin Trough Crossmatch 10/14/16 10/14/16 10/14/16 17:43 19:00 20:08 WBC RBC Hgb Hct MCV RDW Plt Count Lymph % (Auto) [place] % (Auto) [place] # Seg Neutrophils % Seg Neuts % (Manual) Lymphocytes % (Manual) Monocytes % (Manual) Basophils % (Manual) Nucleated RBC % Seg Neutrophils # Seg Neutrophils # Man Lymphocytes # (Manual) Monocytes # (Manual) Eosinophils # (Manual) Basophils # (Manual) PT INR APTT Heparin Anti-Xa Level POC ABG pH POC ABG pCO2 POC ABG pO2 Sodium Potassium Chloride Carbon Dioxide BUN Creatinine Glucose POC Glucose 154 H 123 H 138 H Calcium Phosphorus Magnesium AST Alkaline Phosphatase C-Reactive Protein Total Protein Albumin Lipase Vitamin B12 TSH Urine WBC (Auto) Urine Chloride Urine Total Protein Vancomycin Trough Crossmatch 10/14/16 10/14/16 10/14/16 21:17 22:25 23:37 WBC RBC Hgb Hct MCV RDW Plt Count Lymph % (Auto) [place] % (Auto) [place] # Seg Neutrophils % Seg Neuts % (Manual) Lymphocytes % (Manual) Monocytes % (Manual) Basophils % (Manual) Nucleated RBC % Seg Neutrophils # Seg Neutrophils # Man Lymphocytes # (Manual) Monocytes # (Manual) Eosinophils # (Manual) Basophils # (Manual) PT INR APTT Heparin Anti-Xa Level POC ABG pH POC ABG pCO2 POC ABG pO2 Sodium Potassium Chloride Carbon Dioxide BUN Creatinine Glucose POC Glucose 148 H 132 H 137 H Calcium Phosphorus Magnesium AST Alkaline Phosphatase C-Reactive Protein Total Protein Albumin Lipase Vitamin B12 TSH Urine WBC (Auto) Urine Chloride Urine Total Protein Vancomycin Trough Crossmatch 10/15/16 10/15/16 10/15/16 00:49 01:53 03:06 WBC RBC Hgb Hct MCV RDW Plt Count Lymph % (Auto) [place] % (Auto) [place] # Seg Neutrophils % Seg Neuts % (Manual) Lymphocytes % (Manual) Monocytes % (Manual) Basophils % (Manual) Nucleated RBC % Seg Neutrophils # Seg Neutrophils # Man Lymphocytes # (Manual) Monocytes # (Manual) Eosinophils # (Manual) Basophils # (Manual) PT INR APTT Heparin Anti-Xa Level POC ABG pH POC ABG pCO2 POC ABG pO2 Sodium Potassium Chloride Carbon Dioxide BUN Creatinine Glucose POC Glucose 132 H 134 H 134 H Calcium Phosphorus Magnesium AST Alkaline Phosphatase C-Reactive Protein Total Protein Albumin Lipase Vitamin B12 TSH Urine WBC (Auto) Urine Chloride Urine Total Protein Vancomycin Trough Crossmatch 10/15/16 10/15/16 10/15/16 04:40 04:46 06:21 WBC RBC Hgb Hct MCV RDW Plt Count Lymph % (Auto) [place] % (Auto) [place] # Seg Neutrophils % Seg Neuts % (Manual) Lymphocytes % (Manual) Monocytes % (Manual) Basophils % (Manual) Nucleated RBC % Seg Neutrophils # Seg Neutrophils # Man Lymphocytes # (Manual) Monocytes # (Manual) Eosinophils # (Manual) Basophils # (Manual) PT INR APTT Heparin Anti-Xa Level POC ABG pH POC ABG pCO2 30.7 L POC ABG pO2 108 H Sodium Potassium Chloride 109.0 H Carbon Dioxide 17 L BUN 27 H Creatinine Glucose 124 H POC Glucose 160 H Calcium 7.5 L Phosphorus Magnesium AST 79 H Alkaline Phosphatase C-Reactive Protein Total Protein 5.5 L Albumin 3.0 L Lipase Vitamin B12 TSH Urine WBC (Auto) Urine Chloride Urine Total Protein Vancomycin Trough Crossmatch 10/15/16 10/15/16 10/15/16 07:12 08:01 09:03 WBC RBC Hgb Hct MCV RDW Plt Count Lymph % (Auto) [place] % (Auto) [place] # Seg Neutrophils % Seg Neuts % (Manual) Lymphocytes % (Manual) Monocytes % (Manual) Basophils % (Manual) Nucleated RBC % Seg Neutrophils # Seg Neutrophils # Man Lymphocytes # (Manual) Monocytes # (Manual) Eosinophils # (Manual) Basophils # (Manual) PT INR APTT Heparin Anti-Xa Level POC ABG pH POC ABG pCO2 POC ABG pO2 Sodium Potassium Chloride Carbon Dioxide BUN Creatinine Glucose POC Glucose 179 H 187 H 165 H Calcium Phosphorus Magnesium AST Alkaline Phosphatase C-Reactive Protein Total Protein Albumin Lipase Vitamin B12 TSH Urine WBC (Auto) Urine Chloride Urine Total Protein Vancomycin Trough Crossmatch 10/15/16 10/15/16 10/15/16 10:06 10:06 10:07 WBC 12.1 H RBC 3.01 L Hgb 9.7 L Hct 29.6 L MCV 98 H RDW Plt Count 129 L Lymph % (Auto) [place] % (Auto) [place] # Seg Neutrophils % Seg Neuts % (Manual) Lymphocytes % (Manual) Monocytes % (Manual) Basophils % (Manual) Nucleated RBC % Seg Neutrophils # Seg Neutrophils # Man Lymphocytes # (Manual) Monocytes # (Manual) Eosinophils # (Manual) Basophils # (Manual) PT INR APTT Heparin Anti-Xa Level POC ABG pH POC ABG pCO2 POC ABG pO2 Sodium Potassium 3.2 L D Chloride 109.6 H Carbon Dioxide 18 L BUN 22 H Creatinine Glucose 127 H POC Glucose 147 H Calcium 7.0 L Phosphorus Magnesium AST Alkaline Phosphatase C-Reactive Protein Total Protein Albumin Lipase Vitamin B12 TSH Urine WBC (Auto) Urine Chloride Urine Total Protein Vancomycin Trough Crossmatch 10/15/16 10/15/16 10/15/16 11:05 11:06 11:57 WBC RBC Hgb Hct MCV RDW Plt Count Lymph % (Auto) [place] % (Auto) [place] # Seg Neutrophils % Seg Neuts % (Manual) Lymphocytes % (Manual) Monocytes % (Manual) Basophils % (Manual) Nucleated RBC % Seg Neutrophils # Seg Neutrophils # Man Lymphocytes # (Manual) Monocytes # (Manual) Eosinophils # (Manual) Basophils # (Manual) PT INR APTT Heparin Anti-Xa Level POC ABG pH 7.305 L POC ABG pCO2 POC ABG pO2 Sodium Potassium Chloride Carbon Dioxide BUN Creatinine Glucose POC Glucose 145 H Calcium Phosphorus Magnesium AST Alkaline Phosphatase C-Reactive Protein Total Protein Albumin Lipase Vitamin B12 TSH Urine WBC (Auto) 7.0 H Urine Chloride Urine Total Protein Vancomycin Trough Crossmatch 10/15/16 10/15/16 10/15/16 12:04 13:59 15:24 WBC RBC Hgb Hct MCV RDW Plt Count Lymph % (Auto) [place] % (Auto) [place] # Seg Neutrophils % Seg Neuts % (Manual) Lymphocytes % (Manual) Monocytes % (Manual) Basophils % (Manual) Nucleated RBC % Seg Neutrophils # Seg Neutrophils # Man Lymphocytes # (Manual) Monocytes # (Manual) Eosinophils # (Manual) Basophils # (Manual) PT INR APTT Heparin Anti-Xa Level POC ABG pH POC ABG pCO2 POC ABG pO2 Sodium Potassium Chloride Carbon Dioxide BUN Creatinine Glucose POC Glucose 123 H 147 H 153 H Calcium Phosphorus Magnesium AST Alkaline Phosphatase C-Reactive Protein Total Protein Albumin Lipase Vitamin B12 TSH Urine WBC (Auto) Urine Chloride Urine Total Protein Vancomycin Trough Crossmatch 10/15/16 10/15/16 10/15/16 16:30 17:34 18:30 WBC RBC Hgb Hct MCV RDW Plt Count Lymph % (Auto) [place] % (Auto) [place] # Seg Neutrophils % Seg Neuts % (Manual) Lymphocytes % (Manual) Monocytes % (Manual) Basophils % (Manual) Nucleated RBC % Seg Neutrophils # Seg Neutrophils # Man Lymphocytes # (Manual) Monocytes # (Manual) Eosinophils # (Manual) Basophils # (Manual) PT INR APTT Heparin Anti-Xa Level POC ABG pH POC ABG pCO2 POC ABG pO2 Sodium Potassium Chloride Carbon Dioxide BUN Creatinine Glucose POC Glucose 223 H 236 H 164 H Calcium Phosphorus Magnesium AST Alkaline Phosphatase C-Reactive Protein Total Protein Albumin Lipase Vitamin B12 TSH Urine WBC (Auto) Urine Chloride Urine Total Protein Vancomycin Trough Crossmatch 10/15/16 10/15/16 10/15/16 19:14 20:31 21:23 WBC RBC Hgb Hct MCV RDW Plt Count Lymph % (Auto) [place] % (Auto) [place] # Seg Neutrophils % Seg Neuts % (Manual) Lymphocytes % (Manual) Monocytes % (Manual) Basophils % (Manual) Nucleated RBC % Seg Neutrophils # Seg Neutrophils # Man Lymphocytes # (Manual) Monocytes # (Manual) Eosinophils # (Manual) Basophils # (Manual) PT INR APTT Heparin Anti-Xa Level POC ABG pH POC ABG pCO2 POC ABG pO2 Sodium Potassium Chloride Carbon Dioxide BUN Creatinine Glucose POC Glucose 138 H 158 H 158 H Calcium Phosphorus Magnesium AST Alkaline Phosphatase C-Reactive Protein Total Protein Albumin Lipase Vitamin B12 TSH Urine WBC (Auto) Urine Chloride Urine Total Protein Vancomycin Trough Crossmatch 10/15/16 10/15/16 10/16/16 22:04 22:57 00:11 WBC RBC Hgb Hct MCV RDW Plt Count Lymph % (Auto) [place] % (Auto) [place] # Seg Neutrophils % Seg Neuts % (Manual) Lymphocytes % (Manual) Monocytes % (Manual) Basophils % (Manual) Nucleated RBC % Seg Neutrophils # Seg Neutrophils # Man Lymphocytes # (Manual) Monocytes # (Manual) Eosinophils # (Manual) Basophils # (Manual) PT INR APTT Heparin Anti-Xa Level POC ABG pH POC ABG pCO2 POC ABG pO2 Sodium Potassium Chloride Carbon Dioxide BUN Creatinine Glucose POC Glucose 168 H 213 H 166 H Calcium Phosphorus Magnesium AST Alkaline Phosphatase C-Reactive Protein Total Protein Albumin Lipase Vitamin B12 TSH Urine WBC (Auto) Urine Chloride Urine Total Protein Vancomycin Trough Crossmatch 10/16/16 10/16/16 10/16/16 01:16 02:32 03:38 WBC RBC Hgb Hct MCV RDW Plt Count Lymph % (Auto) [place] % (Auto) [place] # Seg Neutrophils % Seg Neuts % (Manual) Lymphocytes % (Manual) Monocytes % (Manual) Basophils % (Manual) Nucleated RBC % Seg Neutrophils # Seg Neutrophils # Man Lymphocytes # (Manual) Monocytes # (Manual) Eosinophils # (Manual) Basophils # (Manual) PT INR APTT Heparin Anti-Xa Level POC ABG pH POC ABG pCO2 POC ABG pO2 Sodium Potassium Chloride Carbon Dioxide BUN Creatinine Glucose POC Glucose 171 H 164 H 147 H Calcium Phosphorus Magnesium AST Alkaline Phosphatase C-Reactive Protein Total Protein Albumin Lipase Vitamin B12 TSH Urine WBC (Auto) Urine Chloride Urine Total Protein Vancomycin Trough Crossmatch 10/16/16 10/16/16 10/16/16 04:14 04:14 04:49 WBC RBC Hgb Hct MCV RDW Plt Count Lymph % (Auto) [place] % (Auto) [place] # Seg Neutrophils % Seg Neuts % (Manual) Lymphocytes % (Manual) Monocytes % (Manual) Basophils % (Manual) Nucleated RBC % Seg Neutrophils # Seg Neutrophils # Man Lymphocytes # (Manual) Monocytes # (Manual) Eosinophils # (Manual) Basophils # (Manual) PT INR APTT Heparin Anti-Xa Level POC ABG pH POC ABG pCO2 POC ABG pO2 Sodium 147 H Potassium Chloride 110.9 H Carbon Dioxide 19 L BUN Creatinine Glucose 139 H POC Glucose 144 H Calcium 7.3 L Phosphorus 2.3 L Magnesium AST Alkaline Phosphatase C-Reactive Protein Total Protein Albumin Lipase 143 H Vitamin B12 TSH Urine WBC (Auto) Urine Chloride Urine Total Protein Vancomycin Trough Crossmatch 10/16/16 10/16/16 10/16/16 05:03 05:41 05:58 WBC 16.5 H RBC 3.36 L Hgb Hct MCV 98 H RDW 13.1 L Plt Count Lymph % (Auto) 8.5 L [place] % (Auto) 7.6 H [place] # 1.3 H Seg Neutrophils % 83.3 H Seg Neuts % (Manual) Lymphocytes % (Manual) Monocytes % (Manual) Basophils % (Manual) Nucleated RBC % Seg Neutrophils # 13.8 H Seg Neutrophils # Man Lymphocytes # (Manual) Monocytes # (Manual) Eosinophils # (Manual) Basophils # (Manual) PT INR APTT Heparin Anti-Xa Level POC ABG pH POC ABG pCO2 30.7 L POC ABG pO2 128 H Sodium Potassium Chloride Carbon Dioxide BUN Creatinine Glucose POC Glucose 131 H Calcium Phosphorus Magnesium AST Alkaline Phosphatase C-Reactive Protein Total Protein Albumin Lipase Vitamin B12 TSH Urine WBC (Auto) Urine Chloride Urine Total Protein Vancomycin Trough Crossmatch 10/16/16 10/16/16 10/16/16 06:32 09:27 09:35 WBC RBC Hgb Hct MCV RDW Plt Count Lymph % (Auto) [place] % (Auto) [place] # Seg Neutrophils % Seg Neuts % (Manual) Lymphocytes % (Manual) Monocytes % (Manual) Basophils % (Manual) Nucleated RBC % Seg Neutrophils # Seg Neutrophils # Man Lymphocytes # (Manual) Monocytes # (Manual) Eosinophils # (Manual) Basophils # (Manual) PT INR APTT Heparin Anti-Xa Level POC ABG pH POC ABG pCO2 32.8 L POC ABG pO2 137 H Sodium Potassium Chloride Carbon Dioxide BUN Creatinine Glucose POC Glucose 121 H 150 H Calcium Phosphorus Magnesium AST Alkaline Phosphatase C-Reactive Protein Total Protein Albumin Lipase Vitamin B12 TSH Urine WBC (Auto) Urine Chloride Urine Total Protein Vancomycin Trough Crossmatch 10/16/16 10/16/16 10/16/16 10:47 13:27 14:24 WBC RBC Hgb Hct MCV RDW Plt Count Lymph % (Auto) [place] % (Auto) [place] # Seg Neutrophils % Seg Neuts % (Manual) Lymphocytes % (Manual) Monocytes % (Manual) Basophils % (Manual) Nucleated RBC % Seg Neutrophils # Seg Neutrophils # Man Lymphocytes # (Manual) Monocytes # (Manual) Eosinophils # (Manual) Basophils # (Manual) PT INR APTT Heparin Anti-Xa Level POC ABG pH POC ABG pCO2 POC ABG pO2 Sodium Potassium Chloride Carbon Dioxide BUN Creatinine Glucose POC Glucose 184 H 171 H 174 H Calcium Phosphorus Magnesium AST Alkaline Phosphatase C-Reactive Protein Total Protein Albumin Lipase Vitamin B12 TSH Urine WBC (Auto) Urine Chloride Urine Total Protein Vancomycin Trough Crossmatch 10/16/16 10/16/16 10/16/16 15:48 16:26 18:17 WBC RBC Hgb Hct MCV RDW Plt Count Lymph % (Auto) [place] % (Auto) [place] # Seg Neutrophils % Seg Neuts % (Manual) Lymphocytes % (Manual) Monocytes % (Manual) Basophils % (Manual) Nucleated RBC % Seg Neutrophils # Seg Neutrophils # Man Lymphocytes # (Manual) Monocytes # (Manual) Eosinophils # (Manual) Basophils # (Manual) PT INR APTT Heparin Anti-Xa Level POC ABG pH POC ABG pCO2 POC ABG pO2 Sodium Potassium Chloride Carbon Dioxide BUN Creatinine Glucose POC Glucose 205 H 204 H 234 H Calcium Phosphorus Magnesium AST Alkaline Phosphatase C-Reactive Protein Total Protein Albumin Lipase Vitamin B12 TSH Urine WBC (Auto) Urine Chloride Urine Total Protein Vancomycin Trough Crossmatch 10/16/16 10/16/16 10/16/16 19:40 20:33 21:36 WBC RBC Hgb Hct MCV RDW Plt Count Lymph % (Auto) [place] % (Auto) [place] # Seg Neutrophils % Seg Neuts % (Manual) Lymphocytes % (Manual) Monocytes % (Manual) Basophils % (Manual) Nucleated RBC % Seg Neutrophils # Seg Neutrophils # Man Lymphocytes # (Manual) Monocytes # (Manual) Eosinophils # (Manual) Basophils # (Manual) PT INR APTT Heparin Anti-Xa Level POC ABG pH POC ABG pCO2 POC ABG pO2 Sodium Potassium Chloride Carbon Dioxide BUN Creatinine Glucose POC Glucose 167 H 153 H 158 H Calcium Phosphorus Magnesium AST Alkaline Phosphatase C-Reactive Protein Total Protein Albumin Lipase Vitamin B12 TSH Urine WBC (Auto) Urine Chloride Urine Total Protein Vancomycin Trough Crossmatch 10/16/16 10/16/16 10/17/16 22:54 23:48 00:47 WBC RBC Hgb Hct MCV RDW Plt Count Lymph % (Auto) [place] % (Auto) [place] # Seg Neutrophils % Seg Neuts % (Manual) Lymphocytes % (Manual) Monocytes % (Manual) Basophils % (Manual) Nucleated RBC % Seg Neutrophils # Seg Neutrophils # Man Lymphocytes # (Manual) Monocytes # (Manual) Eosinophils # (Manual) Basophils # (Manual) PT INR APTT Heparin Anti-Xa Level POC ABG pH POC ABG pCO2 POC ABG pO2 Sodium Potassium Chloride Carbon Dioxide BUN Creatinine Glucose POC Glucose 180 H 207 H 196 H Calcium Phosphorus Magnesium AST Alkaline Phosphatase C-Reactive Protein Total Protein Albumin Lipase Vitamin B12 TSH Urine WBC (Auto) Urine Chloride Urine Total Protein Vancomycin Trough Crossmatch 10/17/16 10/17/16 10/17/16 01:57 02:49 03:50 WBC RBC Hgb Hct MCV RDW Plt Count Lymph % (Auto) [place] % (Auto) [place] # Seg Neutrophils % Seg Neuts % (Manual) Lymphocytes % (Manual) Monocytes % (Manual) Basophils % (Manual) Nucleated RBC % Seg Neutrophils # Seg Neutrophils # Man Lymphocytes # (Manual) Monocytes # (Manual) Eosinophils # (Manual) Basophils # (Manual) PT INR APTT Heparin Anti-Xa Level POC ABG pH POC ABG pCO2 POC ABG pO2 Sodium Potassium Chloride Carbon Dioxide BUN Creatinine Glucose POC Glucose 180 H 151 H 106 H Calcium Phosphorus Magnesium AST Alkaline Phosphatase C-Reactive Protein Total Protein Albumin Lipase Vitamin B12 TSH Urine WBC (Auto) Urine Chloride Urine Total Protein Vancomycin Trough Crossmatch 10/17/16 10/17/16 10/17/16 04:59 06:03 06:35 WBC RBC Hgb Hct MCV RDW Plt Count Lymph % (Auto) [place] % (Auto) [place] # Seg Neutrophils % Seg Neuts % (Manual) Lymphocytes % (Manual) Monocytes % (Manual) Basophils % (Manual) Nucleated RBC % Seg Neutrophils # Seg Neutrophils # Man Lymphocytes # (Manual) Monocytes # (Manual) Eosinophils # (Manual) Basophils # (Manual) PT INR APTT Heparin Anti-Xa Level POC ABG pH 7.453 H POC ABG pCO2 30.1 L POC ABG pO2 111 H Sodium Potassium Chloride Carbon Dioxide BUN Creatinine Glucose POC Glucose 145 H 157 H Calcium Phosphorus Magnesium AST Alkaline Phosphatase C-Reactive Protein Total Protein Albumin Lipase Vitamin B12 TSH Urine WBC (Auto) Urine Chloride Urine Total Protein Vancomycin Trough Crossmatch 10/17/16 10/17/16 10/17/16 07:08 07:11 08:01 WBC RBC Hgb Hct MCV RDW Plt Count Lymph % (Auto) [place] % (Auto) [place] # Seg Neutrophils % Seg Neuts % (Manual) Lymphocytes % (Manual) Monocytes % (Manual) Basophils % (Manual) Nucleated RBC % Seg Neutrophils # Seg Neutrophils # Man Lymphocytes # (Manual) Monocytes # (Manual) Eosinophils # (Manual) Basophils # (Manual) PT INR APTT Heparin Anti-Xa Level POC ABG pH POC ABG pCO2 POC ABG pO2 Sodium 147 H Potassium Chloride 113.8 H Carbon Dioxide 19 L BUN Creatinine Glucose 136 H POC Glucose 136 H 152 H Calcium 7.7 L Phosphorus Magnesium AST Alkaline Phosphatase C-Reactive Protein Total Protein Albumin Lipase Vitamin B12 TSH Urine WBC (Auto) Urine Chloride Urine Total Protein Vancomycin Trough Crossmatch 10/17/16 10/17/16 10/17/16 08:23 09:17 09:53 WBC 18.1 H RBC 3.01 L Hgb 9.7 L Hct 29.4 L MCV 98 H RDW Plt Count 116 L Lymph % (Auto) [place] % (Auto) [place] # Seg Neutrophils % Seg Neuts % (Manual) 77.0 H Lymphocytes % (Manual) 4.0 L Monocytes % (Manual) 12.0 H Basophils % (Manual) Nucleated RBC % Seg Neutrophils # Seg Neutrophils # Man 13.9 H Lymphocytes # (Manual) 0.7 L Monocytes # (Manual) 2.2 H Eosinophils # (Manual) Basophils # (Manual) PT INR APTT Heparin Anti-Xa Level POC ABG pH POC ABG pCO2 POC ABG pO2 Sodium Potassium Chloride Carbon Dioxide BUN Creatinine Glucose POC Glucose 148 H 137 H Calcium Phosphorus Magnesium AST Alkaline Phosphatase C-Reactive Protein Total Protein Albumin Lipase Vitamin B12 TSH Urine WBC (Auto) Urine Chloride Urine Total Protein Vancomycin Trough Crossmatch 10/17/16 10/17/16 10/17/16 11:43 16:07 17:42 WBC RBC Hgb Hct MCV RDW Plt Count Lymph % (Auto) [place] % (Auto) [place] # Seg Neutrophils % Seg Neuts % (Manual) Lymphocytes % (Manual) Monocytes % (Manual) Basophils % (Manual) Nucleated RBC % Seg Neutrophils # Seg Neutrophils # Man Lymphocytes # (Manual) Monocytes # (Manual) Eosinophils # (Manual) Basophils # (Manual) PT 16.4 H INR 1.33 H APTT 38.8 H Heparin Anti-Xa Level POC ABG pH POC ABG pCO2 POC ABG pO2 Sodium Potassium Chloride Carbon Dioxide BUN Creatinine Glucose POC Glucose 179 H 153 H Calcium Phosphorus Magnesium AST Alkaline Phosphatase C-Reactive Protein Total Protein Albumin Lipase Vitamin B12 TSH Urine WBC (Auto) Urine Chloride Urine Total Protein Vancomycin Trough Crossmatch 10/17/16 10/18/16 10/18/16 22:54 04:37 05:39 WBC RBC Hgb Hct MCV RDW Plt Count Lymph % (Auto) [place] % (Auto) [place] # Seg Neutrophils % Seg Neuts % (Manual) Lymphocytes % (Manual) Monocytes % (Manual) Basophils % (Manual) Nucleated RBC % Seg Neutrophils # Seg Neutrophils # Man Lymphocytes # (Manual) Monocytes # (Manual) Eosinophils # (Manual) Basophils # (Manual) PT INR APTT Heparin Anti-Xa Level 0.27 L POC ABG pH 7.454 H POC ABG pCO2 30.8 L POC ABG pO2 115 H Sodium Potassium Chloride Carbon Dioxide BUN Creatinine Glucose POC Glucose 69 L Calcium Phosphorus Magnesium AST Alkaline Phosphatase C-Reactive Protein Total Protein Albumin Lipase Vitamin B12 TSH Urine WBC (Auto) Urine Chloride Urine Total Protein Vancomycin Trough Crossmatch 10/18/16 10/18/16 10/18/16 06:46 06:46 06:46 WBC 20.5 H RBC 2.62 L Hgb 8.4 L Hct 26.0 L MCV 100 H RDW Plt Count Lymph % (Auto) [place] % (Auto) [place] # Seg Neutrophils % Seg Neuts % (Manual) 75.0 H Lymphocytes % (Manual) 9.0 L Monocytes % (Manual) 14.0 H Basophils % (Manual) Nucleated RBC % Seg Neutrophils # Seg Neutrophils # Man 15.4 H Lymphocytes # (Manual) Monocytes # (Manual) 2.9 H Eosinophils # (Manual) Basophils # (Manual) PT INR APTT Heparin Anti-Xa Level POC ABG pH POC ABG pCO2 POC ABG pO2 Sodium Potassium Chloride 110.6 H Carbon Dioxide BUN Creatinine 1.3 H Glucose 153 H POC Glucose Calcium 8.0 L Phosphorus Magnesium 1.6 L AST Alkaline Phosphatase C-Reactive Protein Total Protein Albumin Lipase Vitamin B12 TSH Urine WBC (Auto) Urine Chloride Urine Total Protein Vancomycin Trough Crossmatch 10/18/16 10/18/16 10/18/16 07:30 11:37 17:51 WBC RBC Hgb Hct MCV RDW Plt Count Lymph % (Auto) [place] % (Auto) [place] # Seg Neutrophils % Seg Neuts % (Manual) Lymphocytes % (Manual) Monocytes % (Manual) Basophils % (Manual) Nucleated RBC % Seg Neutrophils # Seg Neutrophils # Man Lymphocytes # (Manual) Monocytes # (Manual) Eosinophils # (Manual) Basophils # (Manual) PT INR APTT Heparin Anti-Xa Level POC ABG pH POC ABG pCO2 POC ABG pO2 Sodium Potassium Chloride Carbon Dioxide BUN Creatinine Glucose POC Glucose 162 H 156 H 164 H Calcium Phosphorus Magnesium AST Alkaline Phosphatase C-Reactive Protein Total Protein Albumin Lipase Vitamin B12 TSH Urine WBC (Auto) Urine Chloride Urine Total Protein Vancomycin Trough Crossmatch 10/18/16 10/19/16 10/19/16 23:44 03:59 05:13 WBC 18.2 H RBC 2.76 L Hgb 9.0 L Hct 27.7 L MCV 100 H RDW Plt Count Lymph % (Auto) [place] % (Auto) [place] # Seg Neutrophils % Seg Neuts % (Manual) 76.0 H Lymphocytes % (Manual) 10.0 L Monocytes % (Manual) Basophils % (Manual) Nucleated RBC % Seg Neutrophils # Seg Neutrophils # Man 13.8 H Lymphocytes # (Manual) Monocytes # (Manual) Eosinophils # (Manual) Basophils # (Manual) PT INR APTT Heparin Anti-Xa Level POC ABG pH POC ABG pCO2 32.2 L POC ABG pO2 128 H Sodium Potassium Chloride Carbon Dioxide BUN Creatinine Glucose POC Glucose 278 H Calcium Phosphorus Magnesium AST Alkaline Phosphatase C-Reactive Protein Total Protein Albumin Lipase Vitamin B12 TSH Urine WBC (Auto) Urine Chloride Urine Total Protein Vancomycin Trough Crossmatch 10/19/16 10/19/16 10/19/16 06:01 06:30 12:20 WBC RBC Hgb Hct MCV RDW Plt Count Lymph % (Auto) [place] % (Auto) [place] # Seg Neutrophils % Seg Neuts % (Manual) Lymphocytes % (Manual) Monocytes % (Manual) Basophils % (Manual) Nucleated RBC % Seg Neutrophils # Seg Neutrophils # Man Lymphocytes # (Manual) Monocytes # (Manual) Eosinophils # (Manual) Basophils # (Manual) PT INR APTT Heparin Anti-Xa Level POC ABG pH POC ABG pCO2 POC ABG pO2 Sodium Potassium Chloride Carbon Dioxide 18 L BUN Creatinine 1.3 H Glucose 262 H POC Glucose 261 H 349 H Calcium 7.7 L Phosphorus 4.8 H D Magnesium AST Alkaline Phosphatase C-Reactive Protein Total Protein Albumin Lipase Vitamin B12 TSH Urine WBC (Auto) Urine Chloride Urine Total Protein Vancomycin Trough Crossmatch 10/19/16 10/20/16 10/20/16 16:48 00:17 05:20 WBC 22.5 H RBC 2.80 L Hgb 8.9 L Hct 28.3 L MCV 101 H RDW Plt Count Lymph % (Auto) [place] % (Auto) [place] # Seg Neutrophils % Seg Neuts % (Manual) Lymphocytes % (Manual) 10.0 L Monocytes % (Manual) Basophils % (Manual) Nucleated RBC % Seg Neutrophils # Seg Neutrophils # Man 13.3 H Lymphocytes # (Manual) Monocytes # (Manual) 1.1 H Eosinophils # (Manual) 0.7 H Basophils # (Manual) PT INR APTT Heparin Anti-Xa Level POC ABG pH POC ABG pCO2 POC ABG pO2 Sodium Potassium Chloride Carbon Dioxide BUN Creatinine Glucose POC Glucose 248 H 346 H Calcium Phosphorus Magnesium AST Alkaline Phosphatase C-Reactive Protein Total Protein Albumin Lipase Vitamin B12 TSH Urine WBC (Auto) Urine Chloride Urine Total Protein Vancomycin Trough Crossmatch 10/20/16 10/20/16 10/20/16 05:20 05:20 06:05 WBC RBC Hgb Hct MCV RDW Plt Count Lymph % (Auto) [place] % (Auto) [place] # Seg Neutrophils % Seg Neuts % (Manual) Lymphocytes % (Manual) Monocytes % (Manual) Basophils % (Manual) Nucleated RBC % Seg Neutrophils # Seg Neutrophils # Man Lymphocytes # (Manual) Monocytes # (Manual) Eosinophils # (Manual) Basophils # (Manual) PT INR APTT Heparin Anti-Xa Level 0.20 L POC ABG pH POC ABG pCO2 POC ABG pO2 Sodium Potassium Chloride Carbon Dioxide BUN 20 H Creatinine Glucose 374 H POC Glucose 337 H Calcium 8.3 L Phosphorus Magnesium AST Alkaline Phosphatase C-Reactive Protein Total Protein Albumin Lipase Vitamin B12 TSH Urine WBC (Auto) Urine Chloride Urine Total Protein Vancomycin Trough Crossmatch 10/20/16 10/20/16 10/20/16 11:49 13:59 17:56 WBC RBC Hgb Hct MCV RDW Plt Count Lymph % (Auto) [place] % (Auto) [place] # Seg Neutrophils % Seg Neuts % (Manual) Lymphocytes % (Manual) Monocytes % (Manual) Basophils % (Manual) Nucleated RBC % Seg Neutrophils # Seg Neutrophils # Man Lymphocytes # (Manual) Monocytes # (Manual) Eosinophils # (Manual) Basophils # (Manual) PT INR APTT Heparin Anti-Xa Level 2.00 H POC ABG pH POC ABG pCO2 POC ABG pO2 Sodium Potassium Chloride Carbon Dioxide BUN Creatinine Glucose POC Glucose 305 H 362 H Calcium Phosphorus Magnesium AST Alkaline Phosphatase C-Reactive Protein Total Protein Albumin Lipase Vitamin B12 TSH Urine WBC (Auto) Urine Chloride Urine Total Protein Vancomycin Trough Crossmatch 10/20/16 10/21/16 10/21/16 23:52 05:00 05:49 WBC 22.9 H RBC 2.49 L Hgb 7.7 L Hct 25.6 L MCV 103 H RDW Plt Count Lymph % (Auto) [place] % (Auto) [place] # Seg Neutrophils % Seg Neuts % (Manual) 94.0 H Lymphocytes % (Manual) 1.0 L Monocytes % (Manual) Basophils % (Manual) Nucleated RBC % Seg Neutrophils # Seg Neutrophils # Man 21.5 H Lymphocytes # (Manual) 0.2 L Monocytes # (Manual) 1.1 H Eosinophils # (Manual) Basophils # (Manual) PT INR APTT Heparin Anti-Xa Level POC ABG pH POC ABG pCO2 POC ABG pO2 Sodium Potassium Chloride Carbon Dioxide BUN Creatinine Glucose POC Glucose 252 H 180 H Calcium Phosphorus Magnesium AST Alkaline Phosphatase C-Reactive Protein Total Protein Albumin Lipase Vitamin B12 TSH Urine WBC (Auto) Urine Chloride Urine Total Protein Vancomycin Trough Crossmatch 10/21/16 10/21/16 10/21/16 11:47 11:49 14:10 WBC RBC Hgb Hct MCV RDW Plt Count Lymph % (Auto) [place] % (Auto) [place] # Seg Neutrophils % Seg Neuts % (Manual) Lymphocytes % (Manual) Monocytes % (Manual) Basophils % (Manual) Nucleated RBC % Seg Neutrophils # Seg Neutrophils # Man Lymphocytes # (Manual) Monocytes # (Manual) Eosinophils # (Manual) Basophils # (Manual) PT INR APTT Heparin Anti-Xa Level POC ABG pH POC ABG pCO2 POC ABG pO2 Sodium Potassium Chloride Carbon Dioxide BUN Creatinine Glucose POC Glucose 50 L 56 L 140 H Calcium Phosphorus Magnesium AST Alkaline Phosphatase C-Reactive Protein Total Protein Albumin Lipase Vitamin B12 TSH Urine WBC (Auto) Urine Chloride Urine Total Protein Vancomycin Trough Crossmatch 10/21/16 10/21/16 10/22/16 18:24 Unknown 00:07 WBC RBC Hgb Hct MCV RDW Plt Count Lymph % (Auto) [place] % (Auto) [place] # Seg Neutrophils % Seg Neuts % (Manual) Lymphocytes % (Manual) Monocytes % (Manual) Basophils % (Manual) Nucleated RBC % Seg Neutrophils # Seg Neutrophils # Man Lymphocytes # (Manual) Monocytes # (Manual) Eosinophils # (Manual) Basophils # (Manual) PT INR APTT Heparin Anti-Xa Level POC ABG pH POC ABG pCO2 POC ABG pO2 Sodium 150 H Potassium 3.1 L Chloride 112.4 H Carbon Dioxide BUN 25 H Creatinine 1.4 H Glucose POC Glucose 175 H 218 H Calcium 8.0 L Phosphorus Magnesium AST Alkaline Phosphatase C-Reactive Protein Total Protein Albumin Lipase Vitamin B12 TSH Urine WBC (Auto) Urine Chloride Urine Total Protein Vancomycin Trough Crossmatch 10/22/16 10/22/16 10/22/16 04:20 04:20 10:25 WBC 20.8 H RBC 2.37 L Hgb 7.5 L Hct 23.9 L MCV 101 H RDW Plt Count Lymph % (Auto) [place] % (Auto) [place] # Seg Neutrophils % Seg Neuts % (Manual) 89.0 H Lymphocytes % (Manual) 7.0 L Monocytes % (Manual) Basophils % (Manual) Nucleated RBC % Seg Neutrophils # Seg Neutrophils # Man 18.5 H Lymphocytes # (Manual) Monocytes # (Manual) Eosinophils # (Manual) Basophils # (Manual) 0.2 H PT INR APTT Heparin Anti-Xa Level POC ABG pH POC ABG pCO2 POC ABG pO2 Sodium 148 H Potassium 2.9 L* Chloride 109.4 H Carbon Dioxide BUN 26 H Creatinine Glucose 140 H POC Glucose Calcium 7.5 L Phosphorus Magnesium AST Alkaline Phosphatase C-Reactive Protein Total Protein Albumin Lipase Vitamin B12 976.8 H TSH Urine WBC (Auto) Urine Chloride Urine Total Protein Vancomycin Trough Crossmatch 10/22/16 10/22/16 10/22/16 10:25 14:50 18:16 WBC RBC Hgb Hct MCV RDW Plt Count Lymph % (Auto) [place] % (Auto) [place] # Seg Neutrophils % Seg Neuts % (Manual) Lymphocytes % (Manual) Monocytes % (Manual) Basophils % (Manual) Nucleated RBC % Seg Neutrophils # Seg Neutrophils # Man Lymphocytes # (Manual) Monocytes # (Manual) Eosinophils # (Manual) Basophils # (Manual) PT INR APTT Heparin Anti-Xa Level POC ABG pH POC ABG pCO2 POC ABG pO2 Sodium Potassium Chloride Carbon Dioxide BUN Creatinine Glucose POC Glucose 193 H Calcium Phosphorus Magnesium AST Alkaline Phosphatase C-Reactive Protein Total Protein Albumin Lipase Vitamin B12 TSH 0.143 L 0.162 L Urine WBC (Auto) Urine Chloride Urine Total Protein Vancomycin Trough Crossmatch 10/22/16 10/22/16 10/22/16 20:00 20:00 20:00 WBC 24.1 H RBC 2.58 L Hgb 8.2 L Hct 26.4 L MCV 102 H RDW Plt Count Lymph % (Auto) [place] % (Auto) [place] # Seg Neutrophils % Seg Neuts % (Manual) 74.0 H Lymphocytes % (Manual) 7.0 L Monocytes % (Manual) Basophils % (Manual) Nucleated RBC % Seg Neutrophils # Seg Neutrophils # Man 17.8 H Lymphocytes # (Manual) Monocytes # (Manual) Eosinophils # (Manual) Basophils # (Manual) PT INR APTT Heparin Anti-Xa Level 1.92 H POC ABG pH POC ABG pCO2 POC ABG pO2 Sodium Potassium Chloride Carbon Dioxide BUN Creatinine Glucose POC Glucose Calcium Phosphorus Magnesium AST Alkaline Phosphatase C-Reactive Protein Total Protein Albumin Lipase Vitamin B12 TSH Urine WBC (Auto) Urine Chloride Urine Total Protein Vancomycin Trough Crossmatch See Detail 10/23/16 10/23/16 10/23/16 00:21 06:09 12:07 WBC RBC Hgb Hct MCV RDW Plt Count Lymph % (Auto) [place] % (Auto) [place] # Seg Neutrophils % Seg Neuts % (Manual) Lymphocytes % (Manual) Monocytes % (Manual) Basophils % (Manual) Nucleated RBC % Seg Neutrophils # Seg Neutrophils # Man Lymphocytes # (Manual) Monocytes # (Manual) Eosinophils # (Manual) Basophils # (Manual) PT INR APTT Heparin Anti-Xa Level POC ABG pH POC ABG pCO2 POC ABG pO2 Sodium Potassium Chloride Carbon Dioxide BUN Creatinine Glucose POC Glucose 283 H 241 H 340 H Calcium Phosphorus Magnesium AST Alkaline Phosphatase C-Reactive Protein Total Protein Albumin Lipase Vitamin B12 TSH Urine WBC (Auto) Urine Chloride Urine Total Protein Vancomycin Trough Crossmatch 10/23/16 10/23/16 10/23/16 14:01 16:00 17:59 WBC RBC Hgb Hct MCV RDW Plt Count Lymph % (Auto) [place] % (Auto) [place] # Seg Neutrophils % Seg Neuts % (Manual) Lymphocytes % (Manual) Monocytes % (Manual) Basophils % (Manual) Nucleated RBC % Seg Neutrophils # Seg Neutrophils # Man Lymphocytes # (Manual) Monocytes # (Manual) Eosinophils # (Manual) Basophils # (Manual) PT INR APTT Heparin Anti-Xa Level 0.19 L POC ABG pH POC ABG pCO2 32.4 L POC ABG pO2 Sodium Potassium Chloride Carbon Dioxide BUN Creatinine Glucose POC Glucose 245 H Calcium Phosphorus Magnesium AST Alkaline Phosphatase C-Reactive Protein Total Protein Albumin Lipase Vitamin B12 TSH Urine WBC (Auto) Urine Chloride Urine Total Protein Vancomycin Trough Crossmatch 10/23/16 10/23/16 10/23/16 22:55 Unknown Unknown WBC 22.6 H RBC 3.26 L Hgb Hct MCV RDW 17.1 H Plt Count Lymph % (Auto) [place] % (Auto) [place] # Seg Neutrophils % Seg Neuts % (Manual) Lymphocytes % (Manual) 11.0 L Monocytes % (Manual) Basophils % (Manual) Nucleated RBC % Seg Neutrophils # Seg Neutrophils # Man 14.0 H Lymphocytes # (Manual) Monocytes # (Manual) Eosinophils # (Manual) Basophils # (Manual) PT INR APTT Heparin Anti-Xa Level 0.17 L 0.15 L POC ABG pH POC ABG pCO2 POC ABG pO2 Sodium Potassium Chloride Carbon Dioxide BUN Creatinine Glucose POC Glucose Calcium Phosphorus Magnesium AST Alkaline Phosphatase C-Reactive Protein Total Protein Albumin Lipase Vitamin B12 TSH Urine WBC (Auto) Urine Chloride Urine Total Protein Vancomycin Trough Crossmatch 10/23/16 10/24/16 10/24/16 Unknown 00:05 05:30 WBC RBC Hgb Hct MCV RDW Plt Count Lymph % (Auto) [place] % (Auto) [place] # Seg Neutrophils % Seg Neuts % (Manual) Lymphocytes % (Manual) Monocytes % (Manual) Basophils % (Manual) Nucleated RBC % Seg Neutrophils # Seg Neutrophils # Man Lymphocytes # (Manual) Monocytes # (Manual) Eosinophils # (Manual) Basophils # (Manual) PT INR APTT Heparin Anti-Xa Level 0.13 L POC ABG pH POC ABG pCO2 POC ABG pO2 Sodium Potassium Chloride 111.2 H Carbon Dioxide 20 L BUN 25 H Creatinine Glucose 227 H POC Glucose 118 H Calcium 7.1 L Phosphorus Magnesium AST Alkaline Phosphatase C-Reactive Protein Total Protein Albumin Lipase Vitamin B12 TSH Urine WBC (Auto) Urine Chloride Urine Total Protein Vancomycin Trough Crossmatch 10/24/16 10/24/16 10/24/16 11:00 11:00 12:06 WBC 17.6 H RBC 2.92 L Hgb 9.2 L Hct 28.3 L MCV RDW 16.9 H Plt Count Lymph % (Auto) [place] % (Auto) [place] # Seg Neutrophils % Seg Neuts % (Manual) Lymphocytes % (Manual) Monocytes % (Manual) Basophils % (Manual) Nucleated RBC % Seg Neutrophils # Seg Neutrophils # Man Lymphocytes # (Manual) Monocytes # (Manual) Eosinophils # (Manual) Basophils # (Manual) PT INR APTT Heparin Anti-Xa Level 0.27 L POC ABG pH POC ABG pCO2 POC ABG pO2 Sodium Potassium Chloride Carbon Dioxide BUN Creatinine Glucose POC Glucose 166 H Calcium Phosphorus Magnesium AST Alkaline Phosphatase C-Reactive Protein Total Protein Albumin Lipase Vitamin B12 TSH Urine WBC (Auto) Urine Chloride Urine Total Protein Vancomycin Trough Crossmatch 10/24/16 10/25/16 10/25/16 12:27 00:49 03:30 WBC RBC Hgb 8.8 L Hct 28.1 L MCV RDW Plt Count Lymph % (Auto) [place] % (Auto) [place] # Seg Neutrophils % Seg Neuts % (Manual) Lymphocytes % (Manual) Monocytes % (Manual) Basophils % (Manual) Nucleated RBC % Seg Neutrophils # Seg Neutrophils # Man Lymphocytes # (Manual) Monocytes # (Manual) Eosinophils # (Manual) Basophils # (Manual) PT INR APTT Heparin Anti-Xa Level POC ABG pH POC ABG pCO2 33.9 L POC ABG pO2 Sodium Potassium Chloride Carbon Dioxide BUN Creatinine Glucose POC Glucose 121 H Calcium Phosphorus Magnesium AST Alkaline Phosphatase C-Reactive Protein Total Protein Albumin Lipase Vitamin B12 TSH Urine WBC (Auto) Urine Chloride Urine Total Protein Vancomycin Trough Crossmatch 10/25/16 10/25/16 10/25/16 09:49 12:10 19:25 WBC 21.1 H RBC 3.02 L Hgb 9.3 L Hct 28.9 L MCV RDW 16.3 H Plt Count Lymph % (Auto) [place] % (Auto) [place] # Seg Neutrophils % Seg Neuts % (Manual) 81.0 H Lymphocytes % (Manual) 9.0 L Monocytes % (Manual) Basophils % (Manual) Nucleated RBC % Seg Neutrophils # Seg Neutrophils # Man 17.1 H Lymphocytes # (Manual) Monocytes # (Manual) Eosinophils # (Manual) Basophils # (Manual) PT INR APTT Heparin Anti-Xa Level POC ABG pH POC ABG pCO2 POC ABG pO2 Sodium Potassium Chloride Carbon Dioxide BUN Creatinine Glucose POC Glucose 158 H 151 H Calcium Phosphorus Magnesium AST Alkaline Phosphatase C-Reactive Protein Total Protein Albumin Lipase Vitamin B12 TSH Urine WBC (Auto) Urine Chloride Urine Total Protein Vancomycin Trough Crossmatch 10/26/16 10/26/16 10/26/16 00:20 01:09 05:02 WBC 22.2 H RBC 2.89 L Hgb 8.7 L Hct 27.8 L MCV RDW 16.4 H Plt Count Lymph % (Auto) [place] % (Auto) [place] # Seg Neutrophils % Seg Neuts % (Manual) Lymphocytes % (Manual) Monocytes % (Manual) Basophils % (Manual) Nucleated RBC % Seg Neutrophils # Seg Neutrophils # Man Lymphocytes # (Manual) Monocytes # (Manual) Eosinophils # (Manual) Basophils # (Manual) PT INR APTT Heparin Anti-Xa Level POC ABG pH POC ABG pCO2 POC ABG pO2 Sodium Potassium Chloride Carbon Dioxide BUN Creatinine Glucose POC Glucose 44 L 112 H Calcium Phosphorus Magnesium AST Alkaline Phosphatase C-Reactive Protein Total Protein Albumin Lipase Vitamin B12 TSH Urine WBC (Auto) Urine Chloride Urine Total Protein Vancomycin Trough Crossmatch 10/26/16 10/26/16 10/26/16 05:02 12:11 12:14 WBC RBC Hgb Hct MCV RDW Plt Count Lymph % (Auto) [place] % (Auto) [place] # Seg Neutrophils % Seg Neuts % (Manual) Lymphocytes % (Manual) Monocytes % (Manual) Basophils % (Manual) Nucleated RBC % Seg Neutrophils # Seg Neutrophils # Man Lymphocytes # (Manual) Monocytes # (Manual) Eosinophils # (Manual) Basophils # (Manual) PT INR APTT Heparin Anti-Xa Level POC ABG pH POC ABG pCO2 32.0 L POC ABG pO2 33 L Sodium Potassium 3.2 L D Chloride Carbon Dioxide 20 L BUN 24 H Creatinine Glucose 104 H POC Glucose 194 H Calcium 7.7 L Phosphorus Magnesium AST Alkaline Phosphatase C-Reactive Protein Total Protein Albumin Lipase Vitamin B12 TSH Urine WBC (Auto) Urine Chloride Urine Total Protein Vancomycin Trough Crossmatch 10/26/16 10/26/16 10/27/16 15:28 17:23 00:04 WBC RBC Hgb Hct MCV RDW Plt Count Lymph % (Auto) [place] % (Auto) [place] # Seg Neutrophils % Seg Neuts % (Manual) Lymphocytes % (Manual) Monocytes % (Manual) Basophils % (Manual) Nucleated RBC % Seg Neutrophils # Seg Neutrophils # Man Lymphocytes # (Manual) Monocytes # (Manual) Eosinophils # (Manual) Basophils # (Manual) PT INR APTT Heparin Anti-Xa Level POC ABG pH POC ABG pCO2 33.7 L POC ABG pO2 Sodium Potassium Chloride Carbon Dioxide BUN Creatinine Glucose POC Glucose 181 H 230 H Calcium Phosphorus Magnesium AST Alkaline Phosphatase C-Reactive Protein Total Protein Albumin Lipase Vitamin B12 TSH Urine WBC (Auto) Urine Chloride Urine Total Protein Vancomycin Trough Crossmatch 10/27/16 10/27/16 10/27/16 05:15 05:15 05:38 WBC 25.5 H RBC 3.07 L Hgb 9.4 L Hct 30.1 L MCV 98 H RDW 16.4 H Plt Count 527 H Lymph % (Auto) [place] % (Auto) [place] # Seg Neutrophils % Seg Neuts % (Manual) Lymphocytes % (Manual) Monocytes % (Manual) Basophils % (Manual) Nucleated RBC % Seg Neutrophils # Seg Neutrophils # Man Lymphocytes # (Manual) Monocytes # (Manual) Eosinophils # (Manual) Basophils # (Manual) PT INR APTT Heparin Anti-Xa Level POC ABG pH POC ABG pCO2 POC ABG pO2 Sodium Potassium Chloride Carbon Dioxide 19 L BUN 23 H Creatinine Glucose 160 H POC Glucose 168 H Calcium 8.0 L Phosphorus Magnesium AST Alkaline Phosphatase C-Reactive Protein Total Protein Albumin Lipase Vitamin B12 TSH Urine WBC (Auto) Urine Chloride Urine Total Protein Vancomycin Trough Crossmatch 10/27/16 10/27/16 10/27/16 11:59 18:35 23:48 WBC RBC Hgb Hct MCV RDW Plt Count Lymph % (Auto) [place] % (Auto) [place] # Seg Neutrophils % Seg Neuts % (Manual) Lymphocytes % (Manual) Monocytes % (Manual) Basophils % (Manual) Nucleated RBC % Seg Neutrophils # Seg Neutrophils # Man Lymphocytes # (Manual) Monocytes # (Manual) Eosinophils # (Manual) Basophils # (Manual) PT INR APTT Heparin Anti-Xa Level POC ABG pH POC ABG pCO2 POC ABG pO2 Sodium Potassium Chloride Carbon Dioxide BUN Creatinine Glucose POC Glucose 197 H 318 H 316 H Calcium Phosphorus Magnesium AST Alkaline Phosphatase C-Reactive Protein Total Protein Albumin Lipase Vitamin B12 TSH Urine WBC (Auto) Urine Chloride Urine Total Protein Vancomycin Trough Crossmatch 10/28/16 10/28/16 10/28/16 03:13 04:10 04:10 WBC 18.8 H RBC 2.64 L Hgb 8.1 L Hct 26.1 L MCV 99 H RDW 16.2 H Plt Count 544 H Lymph % (Auto) [place] % (Auto) [place] # Seg Neutrophils % Seg Neuts % (Manual) Lymphocytes % (Manual) Monocytes % (Manual) Basophils % (Manual) Nucleated RBC % Seg Neutrophils # Seg Neutrophils # Man Lymphocytes # (Manual) Monocytes # (Manual) Eosinophils # (Manual) Basophils # (Manual) PT INR APTT Heparin Anti-Xa Level POC ABG pH POC ABG pCO2 POC ABG pO2 Sodium Potassium Chloride Carbon Dioxide 21 L BUN 24 H Creatinine Glucose 302 H POC Glucose 304 H Calcium 7.7 L Phosphorus Magnesium AST Alkaline Phosphatase C-Reactive Protein Total Protein Albumin Lipase Vitamin B12 TSH Urine WBC (Auto) Urine Chloride Urine Total Protein Vancomycin Trough Crossmatch 10/28/16 10/28/16 10/28/16 04:10 12:36 18:27 WBC RBC Hgb Hct MCV RDW Plt Count Lymph % (Auto) [place] % (Auto) [place] # Seg Neutrophils % Seg Neuts % (Manual) Lymphocytes % (Manual) Monocytes % (Manual) Basophils % (Manual) Nucleated RBC % Seg Neutrophils # Seg Neutrophils # Man Lymphocytes # (Manual) Monocytes # (Manual) Eosinophils # (Manual) Basophils # (Manual) PT INR APTT Heparin Anti-Xa Level 0.20 L POC ABG pH POC ABG pCO2 POC ABG pO2 Sodium Potassium Chloride Carbon Dioxide BUN Creatinine Glucose POC Glucose 205 H 339 H Calcium Phosphorus Magnesium AST Alkaline Phosphatase C-Reactive Protein Total Protein Albumin Lipase Vitamin B12 TSH Urine WBC (Auto) Urine Chloride Urine Total Protein Vancomycin Trough Crossmatch 10/29/16 10/29/16 10/29/16 01:05 06:19 09:30 WBC 20.3 H RBC 2.80 L Hgb 8.5 L Hct 26.7 L MCV RDW 15.4 H Plt Count 571 H Lymph % (Auto) [place] % (Auto) [place] # Seg Neutrophils % Seg Neuts % (Manual) 75.0 H Lymphocytes % (Manual) 4.0 L Monocytes % (Manual) Basophils % (Manual) Nucleated RBC % Seg Neutrophils # Seg Neutrophils # Man 15.2 H Lymphocytes # (Manual) 0.8 L Monocytes # (Manual) Eosinophils # (Manual) Basophils # (Manual) PT INR APTT Heparin Anti-Xa Level POC ABG pH POC ABG pCO2 POC ABG pO2 Sodium Potassium Chloride Carbon Dioxide BUN Creatinine Glucose POC Glucose 275 H 179 H Calcium Phosphorus Magnesium AST Alkaline Phosphatase C-Reactive Protein Total Protein Albumin Lipase Vitamin B12 TSH Urine WBC (Auto) Urine Chloride Urine Total Protein Vancomycin Trough Crossmatch 10/29/16 10/29/16 10/29/16 11:46 15:18 17:55 WBC RBC Hgb Hct MCV RDW Plt Count Lymph % (Auto) [place] % (Auto) [place] # Seg Neutrophils % Seg Neuts % (Manual) Lymphocytes % (Manual) Monocytes % (Manual) Basophils % (Manual) Nucleated RBC % Seg Neutrophils # Seg Neutrophils # Man Lymphocytes # (Manual) Monocytes # (Manual) Eosinophils # (Manual) Basophils # (Manual) PT INR APTT Heparin Anti-Xa Level 1.15 H POC ABG pH POC ABG pCO2 POC ABG pO2 Sodium Potassium Chloride Carbon Dioxide BUN Creatinine Glucose POC Glucose 122 H 255 H Calcium Phosphorus Magnesium AST Alkaline Phosphatase C-Reactive Protein Total Protein Albumin Lipase Vitamin B12 TSH Urine WBC (Auto) Urine Chloride Urine Total Protein Vancomycin Trough Crossmatch 10/30/16 10/30/16 10/30/16 00:10 05:30 05:30 WBC 19.8 H RBC 2.51 L Hgb 7.7 L Hct 24.1 L MCV RDW 15.5 H Plt Count 534 H Lymph % (Auto) [place] % (Auto) [place] # Seg Neutrophils % Seg Neuts % (Manual) Lymphocytes % (Manual) Monocytes % (Manual) Basophils % (Manual) Nucleated RBC % Seg Neutrophils # Seg Neutrophils # Man Lymphocytes # (Manual) Monocytes # (Manual) Eosinophils # (Manual) Basophils # (Manual) PT INR APTT Heparin Anti-Xa Level POC ABG pH POC ABG pCO2 POC ABG pO2 Sodium Potassium Chloride Carbon Dioxide BUN Creatinine Glucose 211 H POC Glucose 202 H Calcium 7.4 L Phosphorus Magnesium AST Alkaline Phosphatase C-Reactive Protein Total Protein Albumin Lipase Vitamin B12 TSH Urine WBC (Auto) Urine Chloride Urine Total Protein Vancomycin Trough Crossmatch 10/30/16 10/30/16 10/30/16 06:32 12:51 17:47 WBC RBC Hgb Hct MCV RDW Plt Count Lymph % (Auto) [place] % (Auto) [place] # Seg Neutrophils % Seg Neuts % (Manual) Lymphocytes % (Manual) Monocytes % (Manual) Basophils % (Manual) Nucleated RBC % Seg Neutrophils # Seg Neutrophils # Man Lymphocytes # (Manual) Monocytes # (Manual) Eosinophils # (Manual) Basophils # (Manual) PT INR APTT Heparin Anti-Xa Level POC ABG pH POC ABG pCO2 POC ABG pO2 Sodium Potassium Chloride Carbon Dioxide BUN Creatinine Glucose POC Glucose 207 H 218 H 169 H Calcium Phosphorus Magnesium AST Alkaline Phosphatase C-Reactive Protein Total Protein Albumin Lipase Vitamin B12 TSH Urine WBC (Auto) Urine Chloride Urine Total Protein Vancomycin Trough Crossmatch 10/30/16 10/31/16 10/31/16 23:59 05:25 11:21 WBC RBC Hgb Hct MCV RDW Plt Count Lymph % (Auto) [place] % (Auto) [place] # Seg Neutrophils % Seg Neuts % (Manual) Lymphocytes % (Manual) Monocytes % (Manual) Basophils % (Manual) Nucleated RBC % Seg Neutrophils # Seg Neutrophils # Man Lymphocytes # (Manual) Monocytes # (Manual) Eosinophils # (Manual) Basophils # (Manual) PT INR APTT Heparin Anti-Xa Level POC ABG pH POC ABG pCO2 POC ABG pO2 Sodium Potassium Chloride Carbon Dioxide BUN Creatinine Glucose POC Glucose 138 H 127 H 132 H Calcium Phosphorus Magnesium AST Alkaline Phosphatase C-Reactive Protein Total Protein Albumin Lipase Vitamin B12 TSH Urine WBC (Auto) Urine Chloride Urine Total Protein Vancomycin Trough Crossmatch 10/31/16 10/31/16 11/01/16 17:07 23:54 05:47 WBC RBC Hgb Hct MCV RDW Plt Count Lymph % (Auto) [place] % (Auto) [place] # Seg Neutrophils % Seg Neuts % (Manual) Lymphocytes % (Manual) Monocytes % (Manual) Basophils % (Manual) Nucleated RBC % Seg Neutrophils # Seg Neutrophils # Man Lymphocytes # (Manual) Monocytes # (Manual) Eosinophils # (Manual) Basophils # (Manual) PT INR APTT Heparin Anti-Xa Level POC ABG pH POC ABG pCO2 POC ABG pO2 Sodium Potassium Chloride Carbon Dioxide BUN Creatinine Glucose POC Glucose 138 H 153 H 150 H Calcium Phosphorus Magnesium AST Alkaline Phosphatase C-Reactive Protein Total Protein Albumin Lipase Vitamin B12 TSH Urine WBC (Auto) Urine Chloride Urine Total Protein Vancomycin Trough Crossmatch 11/01/16 11/01/16 11/01/16 06:33 06:33 12:16 WBC 19.2 H RBC 2.51 L Hgb 7.9 L Hct 24.8 L MCV 99 H D RDW 16.1 H Plt Count 569 H Lymph % (Auto) [place] % (Auto) [place] # Seg Neutrophils % Seg Neuts % (Manual) Lymphocytes % (Manual) Monocytes % (Manual) Basophils % (Manual) Nucleated RBC % Seg Neutrophils # Seg Neutrophils # Man Lymphocytes # (Manual) Monocytes # (Manual) Eosinophils # (Manual) Basophils # (Manual) PT INR APTT Heparin Anti-Xa Level POC ABG pH POC ABG pCO2 POC ABG pO2 Sodium Potassium 3.5 L Chloride Carbon Dioxide 21 L BUN Creatinine Glucose 137 H POC Glucose 125 H Calcium 7.7 L Phosphorus Magnesium AST Alkaline Phosphatase 148 H C-Reactive Protein Total Protein 6.2 L Albumin 2.0 L Lipase Vitamin B12 TSH Urine WBC (Auto) Urine Chloride Urine Total Protein Vancomycin Trough Crossmatch 11/01/16 11/02/16 11/02/16 17:37 00:05 04:15 WBC RBC Hgb Hct MCV RDW Plt Count Lymph % (Auto) [place] % (Auto) [place] # Seg Neutrophils % Seg Neuts % (Manual) Lymphocytes % (Manual) Monocytes % (Manual) Basophils % (Manual) Nucleated RBC % Seg Neutrophils # Seg Neutrophils # Man Lymphocytes # (Manual) Monocytes # (Manual) Eosinophils # (Manual) Basophils # (Manual) PT INR APTT Heparin Anti-Xa Level < 0.10 L POC ABG pH POC ABG pCO2 POC ABG pO2 Sodium Potassium 3.2 L Chloride Carbon Dioxide BUN 6 L Creatinine Glucose 135 H POC Glucose 164 H Calcium 7.5 L Phosphorus Magnesium AST Alkaline Phosphatase 132 H C-Reactive Protein Total Protein 6.2 L Albumin 1.8 L Lipase Vitamin B12 TSH Urine WBC (Auto) Urine Chloride Urine Total Protein Vancomycin Trough Crossmatch 11/02/16 11/02/16 11/02/16 04:15 05:54 12:15 WBC 17.7 H RBC 2.43 L Hgb 7.6 L Hct 23.5 L MCV RDW 15.9 H Plt Count 502 H Lymph % (Auto) [place] % (Auto) [place] # Seg Neutrophils % Seg Neuts % (Manual) 84.0 H Lymphocytes % (Manual) 11.0 L Monocytes % (Manual) Basophils % (Manual) Nucleated RBC % 1.0 H Seg Neutrophils # Seg Neutrophils # Man 14.9 H Lymphocytes # (Manual) Monocytes # (Manual) Eosinophils # (Manual) Basophils # (Manual) PT INR APTT Heparin Anti-Xa Level POC ABG pH POC ABG pCO2 POC ABG pO2 Sodium Potassium Chloride Carbon Dioxide BUN Creatinine Glucose POC Glucose 152 H 137 H Calcium Phosphorus Magnesium AST Alkaline Phosphatase C-Reactive Protein Total Protein Albumin Lipase Vitamin B12 TSH Urine WBC (Auto) Urine Chloride Urine Total Protein Vancomycin Trough Crossmatch 11/02/16 11/03/16 11/03/16 17:00 00:05 00:05 WBC RBC Hgb Hct MCV RDW Plt Count Lymph % (Auto) [place] % (Auto) [place] # Seg Neutrophils % Seg Neuts % (Manual) Lymphocytes % (Manual) Monocytes % (Manual) Basophils % (Manual) Nucleated RBC % Seg Neutrophils # Seg Neutrophils # Man Lymphocytes # (Manual) Monocytes # (Manual) Eosinophils # (Manual) Basophils # (Manual) PT INR APTT Heparin Anti-Xa Level POC ABG pH POC ABG pCO2 POC ABG pO2 Sodium Potassium Chloride Carbon Dioxide 20 L BUN 5 L Creatinine Glucose 139 H POC Glucose 161 H Calcium 6.7 L Phosphorus Magnesium 1.2 L AST Alkaline Phosphatase C-Reactive Protein Total Protein Albumin Lipase Vitamin B12 TSH Urine WBC (Auto) Urine Chloride Urine Total Protein Vancomycin Trough Crossmatch 11/03/16 11/03/16 11/03/16 00:05 02:05 04:23 WBC 15.9 H 14.0 H RBC 1.93 L 2.38 L Hgb 5.9 L* 7.3 L Hct 18.9 L* 23.1 L MCV 98 H RDW 15.9 H 15.9 H Plt Count Lymph % (Auto) [place] % (Auto) [place] # Seg Neutrophils % Seg Neuts % (Manual) 85.0 H Lymphocytes % (Manual) 4.0 L Monocytes % (Manual) Basophils % (Manual) Nucleated RBC % Seg Neutrophils # Seg Neutrophils # Man 13.5 H Lymphocytes # (Manual) 0.6 L Monocytes # (Manual) Eosinophils # (Manual) Basophils # (Manual) PT INR APTT Heparin Anti-Xa Level POC ABG pH POC ABG pCO2 POC ABG pO2 Sodium Potassium Chloride Carbon Dioxide BUN 5 L Creatinine Glucose 127 H POC Glucose Calcium 7.2 L Phosphorus Magnesium AST Alkaline Phosphatase C-Reactive Protein Total Protein 5.8 L Albumin 1.5 L Lipase Vitamin B12 TSH Urine WBC (Auto) Urine Chloride Urine Total Protein Vancomycin Trough Crossmatch 11/03/16 11/03/16 11/03/16 09:14 09:27 11:54 WBC RBC Hgb Hct MCV RDW Plt Count Lymph % (Auto) [place] % (Auto) [place] # Seg Neutrophils % Seg Neuts % (Manual) Lymphocytes % (Manual) Monocytes % (Manual) Basophils % (Manual) Nucleated RBC % Seg Neutrophils # Seg Neutrophils # Man Lymphocytes # (Manual) Monocytes # (Manual) Eosinophils # (Manual) Basophils # (Manual) PT INR APTT Heparin Anti-Xa Level 0.11 L POC ABG pH POC ABG pCO2 POC ABG pO2 Sodium Potassium Chloride Carbon Dioxide BUN 5 L Creatinine Glucose 111 H POC Glucose 139 H Calcium 6.7 L Phosphorus Magnesium AST Alkaline Phosphatase C-Reactive Protein Total Protein Albumin Lipase Vitamin B12 TSH Urine WBC (Auto) Urine Chloride Urine Total Protein Vancomycin Trough Crossmatch 11/03/16 11/03/16 11/03/16 16:26 18:01 18:01 WBC RBC Hgb Hct MCV RDW Plt Count Lymph % (Auto) [place] % (Auto) [place] # Seg Neutrophils % Seg Neuts % (Manual) Lymphocytes % (Manual) Monocytes % (Manual) Basophils % (Manual) Nucleated RBC % Seg Neutrophils # Seg Neutrophils # Man Lymphocytes # (Manual) Monocytes # (Manual) Eosinophils # (Manual) Basophils # (Manual) PT INR APTT Heparin Anti-Xa Level 2.00 H POC ABG pH POC ABG pCO2 POC ABG pO2 Sodium Potassium Chloride Carbon Dioxide BUN Creatinine Glucose POC Glucose 142 H Calcium Phosphorus Magnesium AST Alkaline Phosphatase C-Reactive Protein Total Protein Albumin Lipase Vitamin B12 TSH Urine WBC (Auto) Urine Chloride Urine Total Protein Vancomycin Trough Crossmatch See Detail 11/04/16 11/04/16 11/04/16 02:15 02:15 06:35 WBC 11.8 H RBC 2.39 L Hgb 7.4 L Hct 23.1 L MCV RDW 15.9 H Plt Count Lymph % (Auto) [place] % (Auto) [place] # Seg Neutrophils % Seg Neuts % (Manual) 76.0 H Lymphocytes % (Manual) 12.0 L Monocytes % (Manual) 9.0 H Basophils % (Manual) Nucleated RBC % Seg Neutrophils # Seg Neutrophils # Man 9.0 H Lymphocytes # (Manual) Monocytes # (Manual) 1.1 H Eosinophils # (Manual) Basophils # (Manual) PT INR APTT Heparin Anti-Xa Level < 0.10 L POC ABG pH POC ABG pCO2 POC ABG pO2 Sodium Potassium Chloride Carbon Dioxide 21 L BUN 5 L Creatinine Glucose 112 H POC Glucose Calcium 6.8 L Phosphorus Magnesium AST Alkaline Phosphatase C-Reactive Protein Total Protein 5.7 L Albumin 1.7 L Lipase Vitamin B12 TSH Urine WBC (Auto) Urine Chloride Urine Total Protein Vancomycin Trough Crossmatch 11/04/16 11/04/16 11/04/16 10:51 12:58 15:04 WBC RBC Hgb Hct MCV RDW Plt Count Lymph % (Auto) [place] % (Auto) [place] # Seg Neutrophils % Seg Neuts % (Manual) Lymphocytes % (Manual) Monocytes % (Manual) Basophils % (Manual) Nucleated RBC % Seg Neutrophils # Seg Neutrophils # Man Lymphocytes # (Manual) Monocytes # (Manual) Eosinophils # (Manual) Basophils # (Manual) PT INR APTT Heparin Anti-Xa Level 1.05 H POC ABG pH POC ABG pCO2 33.7 L POC ABG pO2 60 L Sodium Potassium Chloride Carbon Dioxide BUN Creatinine Glucose POC Glucose 118 H Calcium Phosphorus Magnesium AST Alkaline Phosphatase C-Reactive Protein Total Protein Albumin Lipase Vitamin B12 TSH Urine WBC (Auto) Urine Chloride Urine Total Protein Vancomycin Trough Crossmatch 11/04/16 11/04/16 11/05/16 17:20 20:31 02:30 WBC RBC Hgb Hct MCV RDW Plt Count Lymph % (Auto) [place] % (Auto) [place] # Seg Neutrophils % Seg Neuts % (Manual) Lymphocytes % (Manual) Monocytes % (Manual) Basophils % (Manual) Nucleated RBC % Seg Neutrophils # Seg Neutrophils # Man Lymphocytes # (Manual) Monocytes # (Manual) Eosinophils # (Manual) Basophils # (Manual) PT INR APTT Heparin Anti-Xa Level POC ABG pH POC ABG pCO2 POC ABG pO2 Sodium Potassium 3.5 L Chloride Carbon Dioxide 18 L BUN 5 L Creatinine 0.6 L Glucose 110 H POC Glucose 228 H 169 H Calcium 7.1 L Phosphorus Magnesium AST Alkaline Phosphatase C-Reactive Protein Total Protein Albumin 1.9 L Lipase Vitamin B12 TSH Urine WBC (Auto) Urine Chloride Urine Total Protein Vancomycin Trough Crossmatch 11/05/16 11/05/16 11/05/16 02:30 17:52 21:07 WBC 14.1 H RBC Hgb Hct MCV RDW 16.7 H Plt Count Lymph % (Auto) [place] % (Auto) [place] # Seg Neutrophils % Seg Neuts % (Manual) 80.0 H Lymphocytes % (Manual) 6.0 L Monocytes % (Manual) 8.0 H Basophils % (Manual) Nucleated RBC % Seg Neutrophils # Seg Neutrophils # Man 11.3 H Lymphocytes # (Manual) 0.8 L Monocytes # (Manual) 1.1 H Eosinophils # (Manual) Basophils # (Manual) PT INR APTT Heparin Anti-Xa Level < 0.10 L POC ABG pH POC ABG pCO2 POC ABG pO2 Sodium Potassium Chloride Carbon Dioxide BUN Creatinine Glucose POC Glucose 174 H Calcium Phosphorus Magnesium AST Alkaline Phosphatase C-Reactive Protein Total Protein Albumin Lipase Vitamin B12 TSH Urine WBC (Auto) Urine Chloride Urine Total Protein Vancomycin Trough Crossmatch 11/05/16 11/06/16 11/06/16 23:30 05:00 05:00 WBC 15.2 H RBC 3.29 L Hgb 10.0 L Hct MCV RDW 16.9 H Plt Count Lymph % (Auto) [place] % (Auto) [place] # Seg Neutrophils % Seg Neuts % (Manual) Lymphocytes % (Manual) Monocytes % (Manual) Basophils % (Manual) Nucleated RBC % Seg Neutrophils # Seg Neutrophils # Man Lymphocytes # (Manual) Monocytes # (Manual) Eosinophils # (Manual) Basophils # (Manual) PT INR APTT Heparin Anti-Xa Level 0.94 H POC ABG pH POC ABG pCO2 POC ABG pO2 Sodium Potassium Chloride Carbon Dioxide BUN Creatinine Glucose POC Glucose 131 H Calcium Phosphorus Magnesium AST Alkaline Phosphatase C-Reactive Protein Total Protein Albumin Lipase Vitamin B12 TSH Urine WBC (Auto) Urine Chloride Urine Total Protein Vancomycin Trough Crossmatch 11/06/16 11/06/16 11/06/16 05:00 11:45 18:23 WBC RBC Hgb Hct MCV RDW Plt Count Lymph % (Auto) [place] % (Auto) [place] # Seg Neutrophils % Seg Neuts % (Manual) Lymphocytes % (Manual) Monocytes % (Manual) Basophils % (Manual) Nucleated RBC % Seg Neutrophils # Seg Neutrophils # Man Lymphocytes # (Manual) Monocytes # (Manual) Eosinophils # (Manual) Basophils # (Manual) PT INR APTT Heparin Anti-Xa Level POC ABG pH POC ABG pCO2 POC ABG pO2 Sodium Potassium 3.5 L Chloride 107.1 H Carbon Dioxide 20 L BUN 4 L Creatinine 0.6 L Glucose 104 H POC Glucose 141 H 255 H Calcium 6.7 L Phosphorus Magnesium AST Alkaline Phosphatase C-Reactive Protein Total Protein Albumin Lipase Vitamin B12 TSH Urine WBC (Auto) Urine Chloride Urine Total Protein Vancomycin Trough Crossmatch 11/06/16 11/06/16 11/07/16 22:07 23:07 11:41 WBC RBC Hgb Hct MCV RDW Plt Count Lymph % (Auto) [place] % (Auto) [place] # Seg Neutrophils % Seg Neuts % (Manual) Lymphocytes % (Manual) Monocytes % (Manual) Basophils % (Manual) Nucleated RBC % Seg Neutrophils # Seg Neutrophils # Man Lymphocytes # (Manual) Monocytes # (Manual) Eosinophils # (Manual) Basophils # (Manual) PT INR APTT Heparin Anti-Xa Level 0.80 H POC ABG pH POC ABG pCO2 POC ABG pO2 Sodium Potassium Chloride Carbon Dioxide BUN Creatinine Glucose POC Glucose 183 H 132 H Calcium Phosphorus Magnesium AST Alkaline Phosphatase C-Reactive Protein Total Protein Albumin Lipase Vitamin B12 TSH Urine WBC (Auto) Urine Chloride Urine Total Protein Vancomycin Trough Crossmatch 11/07/16 11/07/16 11/07/16 12:17 17:05 17:58 WBC RBC Hgb Hct MCV RDW Plt Count Lymph % (Auto) [place] % (Auto) [place] # Seg Neutrophils % Seg Neuts % (Manual) Lymphocytes % (Manual) Monocytes % (Manual) Basophils % (Manual) Nucleated RBC % Seg Neutrophils # Seg Neutrophils # Man Lymphocytes # (Manual) Monocytes # (Manual) Eosinophils # (Manual) Basophils # (Manual) PT INR APTT Heparin Anti-Xa Level 0.87 H POC ABG pH 7.324 L POC ABG pCO2 POC ABG pO2 Sodium Potassium Chloride Carbon Dioxide BUN Creatinine Glucose POC Glucose 158 H Calcium Phosphorus Magnesium AST Alkaline Phosphatase C-Reactive Protein Total Protein Albumin Lipase Vitamin B12 TSH Urine WBC (Auto) Urine Chloride Urine Total Protein Vancomycin Trough Crossmatch 11/07/16 11/07/16 11/07/16 23:26 Unknown Unknown WBC 12.3 H RBC 2.96 L Hgb 9.1 L Hct 27.9 L MCV RDW 16.8 H Plt Count Lymph % (Auto) [place] % (Auto) [place] # Seg Neutrophils % Seg Neuts % (Manual) 80.0 H Lymphocytes % (Manual) 7.0 L Monocytes % (Manual) Basophils % (Manual) Nucleated RBC % Seg Neutrophils # Seg Neutrophils # Man 9.8 H Lymphocytes # (Manual) 0.9 L Monocytes # (Manual) Eosinophils # (Manual) Basophils # (Manual) PT INR APTT Heparin Anti-Xa Level POC ABG pH POC ABG pCO2 POC ABG pO2 Sodium Potassium Chloride Carbon Dioxide 19 L BUN Creatinine Glucose 106 H POC Glucose 130 H Calcium 6.9 L Phosphorus Magnesium AST Alkaline Phosphatase C-Reactive Protein Total Protein Albumin Lipase Vitamin B12 TSH Urine WBC (Auto) Urine Chloride Urine Total Protein Vancomycin Trough Crossmatch 11/07/16 11/08/16 11/08/16 Unknown 05:14 05:20 WBC 12.4 H RBC 3.04 L Hgb 9.2 L Hct 28.8 L MCV RDW 16.6 H Plt Count Lymph % (Auto) [place] % (Auto) [place] # Seg Neutrophils % Seg Neuts % (Manual) 77.0 H Lymphocytes % (Manual) 5.0 L Monocytes % (Manual) Basophils % (Manual) 2.0 H Nucleated RBC % Seg Neutrophils # Seg Neutrophils # Man 9.5 H Lymphocytes # (Manual) 0.6 L Monocytes # (Manual) Eosinophils # (Manual) Basophils # (Manual) 0.2 H PT INR APTT Heparin Anti-Xa Level 0.90 H POC ABG pH POC ABG pCO2 POC ABG pO2 Sodium Potassium Chloride Carbon Dioxide BUN Creatinine Glucose POC Glucose 204 H Calcium Phosphorus Magnesium AST Alkaline Phosphatase C-Reactive Protein Total Protein Albumin Lipase Vitamin B12 TSH Urine WBC (Auto) Urine Chloride Urine Total Protein Vancomycin Trough Crossmatch 11/08/16 11/08/16 11/08/16 05:20 12:10 13:10 WBC RBC Hgb Hct MCV RDW Plt Count Lymph % (Auto) [place] % (Auto) [place] # Seg Neutrophils % Seg Neuts % (Manual) Lymphocytes % (Manual) Monocytes % (Manual) Basophils % (Manual) Nucleated RBC % Seg Neutrophils # Seg Neutrophils # Man Lymphocytes # (Manual) Monocytes # (Manual) Eosinophils # (Manual) Basophils # (Manual) PT INR APTT Heparin Anti-Xa Level POC ABG pH POC ABG pCO2 33.7 L POC ABG pO2 Sodium 136 L Potassium Chloride Carbon Dioxide 19 L BUN Creatinine Glucose 192 H POC Glucose 180 H Calcium 7.1 L Phosphorus Magnesium AST Alkaline Phosphatase C-Reactive Protein Total Protein Albumin Lipase Vitamin B12 TSH Urine WBC (Auto) Urine Chloride Urine Total Protein Vancomycin Trough Crossmatch 11/08/16 11/08/16 11/08/16 17:26 20:45 23:34 WBC RBC Hgb Hct MCV RDW Plt Count Lymph % (Auto) [place] % (Auto) [place] # Seg Neutrophils % Seg Neuts % (Manual) Lymphocytes % (Manual) Monocytes % (Manual) Basophils % (Manual) Nucleated RBC % Seg Neutrophils # Seg Neutrophils # Man Lymphocytes # (Manual) Monocytes # (Manual) Eosinophils # (Manual) Basophils # (Manual) PT INR APTT Heparin Anti-Xa Level POC ABG pH POC ABG pCO2 POC ABG pO2 Sodium Potassium Chloride Carbon Dioxide BUN Creatinine Glucose POC Glucose 187 H 178 H Calcium Phosphorus Magnesium AST Alkaline Phosphatase C-Reactive Protein Total Protein Albumin Lipase Vitamin B12 TSH Urine WBC (Auto) Urine Chloride Urine Total Protein Vancomycin Trough 35.4 H Crossmatch 11/09/16 11/09/16 11/09/16 05:30 05:30 05:59 WBC 11.5 H RBC 2.96 L Hgb 9.2 L Hct 28.2 L MCV RDW 16.4 H Plt Count Lymph % (Auto) [place] % (Auto) [place] # Seg Neutrophils % Seg Neuts % (Manual) 76.0 H Lymphocytes % (Manual) 2.0 L Monocytes % (Manual) Basophils % (Manual) Nucleated RBC % Seg Neutrophils # Seg Neutrophils # Man 8.7 H Lymphocytes # (Manual) 0.2 L Monocytes # (Manual) Eosinophils # (Manual) Basophils # (Manual) PT INR APTT Heparin Anti-Xa Level POC ABG pH POC ABG pCO2 POC ABG pO2 Sodium Potassium 3.4 L Chloride 107.6 H Carbon Dioxide 19 L BUN Creatinine 0.6 L Glucose 207 H POC Glucose 263 H Calcium 7.3 L Phosphorus Magnesium AST Alkaline Phosphatase C-Reactive Protein Total Protein Albumin Lipase Vitamin B12 TSH Urine WBC (Auto) Urine Chloride Urine Total Protein Vancomycin Trough Crossmatch 11/09/16 11/09/16 11/09/16 11:49 15:24 18:04 WBC RBC Hgb Hct MCV RDW Plt Count Lymph % (Auto) [place] % (Auto) [place] # Seg Neutrophils % Seg Neuts % (Manual) Lymphocytes % (Manual) Monocytes % (Manual) Basophils % (Manual) Nucleated RBC % Seg Neutrophils # Seg Neutrophils # Man Lymphocytes # (Manual) Monocytes # (Manual) Eosinophils # (Manual) Basophils # (Manual) PT INR APTT Heparin Anti-Xa Level POC ABG pH POC ABG pCO2 33.8 L POC ABG pO2 131 H Sodium Potassium Chloride Carbon Dioxide BUN Creatinine Glucose POC Glucose 269 H 242 H Calcium Phosphorus Magnesium AST Alkaline Phosphatase C-Reactive Protein Total Protein Albumin Lipase Vitamin B12 TSH Urine WBC (Auto) Urine Chloride Urine Total Protein Vancomycin Trough Crossmatch 11/09/16 11/10/16 11/10/16 22:57 04:30 04:30 WBC 15.7 H RBC 3.17 L Hgb 9.7 L Hct 30.2 L MCV RDW 16.2 H Plt Count Lymph % (Auto) [place] % (Auto) [place] # Seg Neutrophils % Seg Neuts % (Manual) Lymphocytes % (Manual) Monocytes % (Manual) Basophils % (Manual) Nucleated RBC % Seg Neutrophils # Seg Neutrophils # Man 8.5 H Lymphocytes # (Manual) Monocytes # (Manual) Eosinophils # (Manual) 0.5 H Basophils # (Manual) PT INR APTT Heparin Anti-Xa Level POC ABG pH POC ABG pCO2 POC ABG pO2 Sodium Potassium Chloride Carbon Dioxide 19 L BUN Creatinine 0.6 L Glucose 199 H POC Glucose 239 H Calcium 7.8 L Phosphorus Magnesium AST Alkaline Phosphatase C-Reactive Protein Total Protein Albumin Lipase Vitamin B12 TSH Urine WBC (Auto) Urine Chloride Urine Total Protein Vancomycin Trough Crossmatch 11/10/16 11/10/16 11/10/16 04:30 11:32 16:00 WBC RBC Hgb Hct MCV RDW Plt Count Lymph % (Auto) [place] % (Auto) [place] # Seg Neutrophils % Seg Neuts % (Manual) Lymphocytes % (Manual) Monocytes % (Manual) Basophils % (Manual) Nucleated RBC % Seg Neutrophils # Seg Neutrophils # Man Lymphocytes # (Manual) Monocytes # (Manual) Eosinophils # (Manual) Basophils # (Manual) PT INR APTT Heparin Anti-Xa Level 1.09 H < 0.10 L POC ABG pH POC ABG pCO2 POC ABG pO2 Sodium Potassium Chloride Carbon Dioxide BUN Creatinine Glucose POC Glucose 211 H Calcium Phosphorus Magnesium AST Alkaline Phosphatase C-Reactive Protein Total Protein Albumin Lipase Vitamin B12 TSH Urine WBC (Auto) Urine Chloride Urine Total Protein Vancomycin Trough Crossmatch 11/10/16 11/10/16 11/10/16 17:39 18:00 23:06 WBC RBC Hgb Hct MCV RDW Plt Count Lymph % (Auto) [place] % (Auto) [place] # Seg Neutrophils % Seg Neuts % (Manual) Lymphocytes % (Manual) Monocytes % (Manual) Basophils % (Manual) Nucleated RBC % Seg Neutrophils # Seg Neutrophils # Man Lymphocytes # (Manual) Monocytes # (Manual) Eosinophils # (Manual) Basophils # (Manual) PT INR APTT Heparin Anti-Xa Level 0.85 H POC ABG pH POC ABG pCO2 POC ABG pO2 Sodium Potassium Chloride Carbon Dioxide BUN Creatinine Glucose POC Glucose 249 H 220 H Calcium Phosphorus Magnesium AST Alkaline Phosphatase C-Reactive Protein Total Protein Albumin Lipase Vitamin B12 TSH Urine WBC (Auto) Urine Chloride Urine Total Protein Vancomycin Trough Crossmatch 11/11/16 11/11/16 11/11/16 05:56 06:15 06:15 WBC 13.3 H RBC 2.87 L Hgb 8.7 L Hct 27.2 L MCV RDW 16.4 H Plt Count Lymph % (Auto) [place] % (Auto) [place] # 0.9 H Seg Neutrophils % 78.9 H Seg Neuts % (Manual) Lymphocytes % (Manual) Monocytes % (Manual) Basophils % (Manual) Nucleated RBC % Seg Neutrophils # 10.5 H Seg Neutrophils # Man Lymphocytes # (Manual) Monocytes # (Manual) Eosinophils # (Manual) Basophils # (Manual) PT INR APTT Heparin Anti-Xa Level POC ABG pH POC ABG pCO2 POC ABG pO2 Sodium Potassium 3.2 L Chloride Carbon Dioxide 19 L BUN Creatinine Glucose POC Glucose 117 H Calcium 7.6 L Phosphorus Magnesium AST Alkaline Phosphatase C-Reactive Protein Total Protein Albumin Lipase Vitamin B12 TSH Urine WBC (Auto) Urine Chloride Urine Total Protein Vancomycin Trough Crossmatch 11/11/16 11/11/16 11/11/16 12:26 16:58 17:33 WBC RBC Hgb Hct MCV RDW Plt Count Lymph % (Auto) [place] % (Auto) [place] # Seg Neutrophils % Seg Neuts % (Manual) Lymphocytes % (Manual) Monocytes % (Manual) Basophils % (Manual) Nucleated RBC % Seg Neutrophils # Seg Neutrophils # Man Lymphocytes # (Manual) Monocytes # (Manual) Eosinophils # (Manual) Basophils # (Manual) PT INR APTT Heparin Anti-Xa Level < 0.10 L POC ABG pH POC ABG pCO2 POC ABG pO2 Sodium Potassium Chloride Carbon Dioxide BUN Creatinine Glucose POC Glucose 114 H 161 H Calcium Phosphorus Magnesium AST Alkaline Phosphatase C-Reactive Protein Total Protein Albumin Lipase Vitamin B12 TSH Urine WBC (Auto) Urine Chloride Urine Total Protein Vancomycin Trough Crossmatch 11/12/16 11/12/16 11/12/16 05:00 05:00 05:00 WBC 12.8 H RBC 2.75 L Hgb 8.4 L Hct 25.7 L MCV RDW 16.3 H Plt Count Lymph % (Auto) [place] % (Auto) 7.5 H [place] # 1.0 H Seg Neutrophils % 78.0 H Seg Neuts % (Manual) Lymphocytes % (Manual) Monocytes % (Manual) Basophils % (Manual) Nucleated RBC % Seg Neutrophils # 10.0 H Seg Neutrophils # Man Lymphocytes # (Manual) Monocytes # (Manual) Eosinophils # (Manual) Basophils # (Manual) PT INR APTT Heparin Anti-Xa Level 0.87 H POC ABG pH POC ABG pCO2 POC ABG pO2 Sodium Potassium 3.4 L Chloride Carbon Dioxide 19 L BUN Creatinine Glucose 112 H POC Glucose Calcium 7.7 L Phosphorus Magnesium AST Alkaline Phosphatase C-Reactive Protein Total Protein Albumin Lipase Vitamin B12 TSH Urine WBC (Auto) Urine Chloride Urine Total Protein Vancomycin Trough Crossmatch Chest x-ray: pending Allied health notes reviewed: RT
[2016-11-13] MEDS: LOPRESSOR FEEDTUBE SCH ×4 (01:20→18:15)
[2016-11-13] MEDS: REGLAN IV SCH ×4 (01:21→18:15)
[2016-11-13] MEDS: DILAUDID IV PRN ×5 (03:22→21:58)
[2016-11-13 06:03] LABS: Anion Gap 22 mmol/L; Blood Urea Nitrogen 8 mg/dL (7-17); Calcium 7.8 mg/dL (8.4-10.2); Carbon Dioxide 17 mmol/L (22-30); Chloride 104.8 mmol/L (98-107); Glucose 116 mg/dL (65-100); Potassium 3.6 mmol/L (3.6-5.0); Sodium 140 mmol/L (137-145)
[2016-11-13 06:04] LABS: Basophils % (Auto) 0.3 % (0.0-1.8); Eosinophils % (Auto) 0.9 % (0.0-4.3); Hematocrit 27.6 % (30.3-42.9); Mean Corpuscular HGB Conc 32 % (30-34); Mean Corpuscular Hemoglobin 31 pg (28-32); Mean Corpuscular Volume 94 fl (79-97); Platelet Count 380 K/mm3 (140-440); Red Blood Count 2.93 M/mm3 (3.65-5.03); Red Cell Distribution Width 16.1 % (13.2-15.2); White Blood Count 12.7 K/mm3 (4.5-11.0)
[2016-11-13] MEDS: PLAVIX PO SCH (09:56)
[2016-11-13] MEDS: PEPCID PO SCH ×2 (09:57→22:00)
[2016-11-13] MEDS: LEVAQUIN 750MG/150ML 750 MG/150 ML BAG IV SCH (09:57)
--- NOTE | 2016-11-13 11:05 | Progress Note ---
Assessment and Plan - Patient Problems (1) Acute respiratory failure with hypercapnia Current Visit: Yes Status: Acute Plan to address problem: - continue aspiration precautions / VAP bundles - continue bronchodilators and pulmonary toilet - continue to wean oxygen to keep sats > 94% - CXR actually with improved infiltrates - continue daily bedside SBT's as tolerated - hopefully weans better once GI issues resolved (2) Altered mental status Current Visit: Yes Status: Acute Qualifiers: Altered mental status type: A Coma depth: C Coma timing: C Plan to address problem: - no active seizures - following clinically - seen by neurology and will follow their recommendations - no seizures on EEG - more appropriate clinically (3) LUCY (acute kidney injury) Current Visit: Yes Status: Acute Plan to address problem: - resolved - following I's & O's (4) DKA (diabetic ketoacidoses) Current Visit: Yes Status: Acute Qualifiers: Diabetes mellitus type: D Diabetes mellitus complication detail: D Plan to address problem: - resolved - continue SSI (5) Sepsis Current Visit: No Status: Acute Qualifiers: Sepsis type: S Plan to address problem: - continue anti-infectives per ID recs - follow clinically (improved) - trend lactate and CRP prn - improving numbers post amputation (6) Emesis Current Visit: Yes Status: Acute Qualifiers: Vomiting type: V Vomiting Intractability: V Nausea presence: N Plan to address problem: (KUB with gastric and some bowel dialatation) - NGT to LIS - increased reglan dose - reduce fentanyl dose and use other sedative (re: opiates and G.I. motility) - continue aspiration precautions - GI consulted (7) Discharge planning issues Current Visit: No Status: Acute Plan to address problem: ...hopefully weans well, tolerates t-piece and can soon transfer out of ICU ...for now remains critically ill on life sustaining treatments including MVS and at high risk for further deterioration including ...30' CCT Subjective Date of service: 11/13/16 Principal diagnosis: respiratory failure on mechanical ventilatory support, DKA Interval history: Seen and examined at bedside; 24 hour events reviewed; nursing and respiratory care staff consulted; no adverse overnight events reported to me;resting peacefully; tolerated PSV for a few hours and then t-piece but back on full support; no emesis reported overnight Objective Vital Signs - 12hr 11/12/16 11/13/16 11/13/16 23:05 00:00 00:12 Temperature 99.1 F Pulse Rate 94 H 104 H 98 H Respiratory 23 Rate Respiratory 22 Rate [Right Leg ] Blood Pressure 137/66 135/67 O2 Sat by Pulse 100 100 Oximetry O2 Sat by Pulse Oximetry [ Assessment] 11/13/16 11/13/16 11/13/16 00:15 00:45 01:00 Temperature 98.1 F Pulse Rate 99 H Respiratory 16 Rate Respiratory Rate [Right Leg ] Blood Pressure 137/70 O2 Sat by Pulse Oximetry O2 Sat by Pulse 100 Oximetry [ Assessment] 11/13/16 11/13/16 11/13/16 01:20 01:50 02:00 Temperature Pulse Rate 104 H 97 H Respiratory 19 Rate Respiratory Rate [Right Leg ] Blood Pressure 137/70 136/85 O2 Sat by Pulse 100 100 Oximetry O2 Sat by Pulse Oximetry [ Assessment] 11/13/16 11/13/16 11/13/16 03:00 03:22 03:25 Temperature Pulse Rate 96 H 96 H Respiratory 16 27 H 23 Rate Respiratory Rate [Right Leg ] Blood Pressure 126/84 O2 Sat by Pulse 100 100 Oximetry O2 Sat by Pulse Oximetry [ Assessment] 11/13/16 11/13/16 11/13/16 03:52 04:01 05:00 Temperature 98.8 F Pulse Rate 102 H 109 H Respiratory 22 17 29 H Rate Respiratory Rate [Right Leg ] Blood Pressure 153/69 123/65 O2 Sat by Pulse 100 100 Oximetry O2 Sat by Pulse Oximetry [ Assessment] 11/13/16 11/13/16 11/13/16 05:01 05:51 06:00 Temperature Pulse Rate 100 H 109 H 111 H Respiratory 25 H 23 Rate Respiratory Rate [Right Leg ] Blood Pressure 123/65 153/79 O2 Sat by Pulse 100 99 97 Oximetry O2 Sat by Pulse Oximetry [ Assessment] 11/13/16 11/13/16 11/13/16 06:10 06:12 06:34 Temperature Pulse Rate 107 H Respiratory 24 26 H Rate Respiratory Rate [Right Leg ] Blood Pressure 160/78 O2 Sat by Pulse 100 Oximetry O2 Sat by Pulse Oximetry [ Assessment] 11/13/16 11/13/16 11/13/16 06:41 07:00 08:00 Temperature 99.5 F 99.5 F Pulse Rate 125 H 103 H Respiratory 23 15 24 Rate Respiratory Rate [Right Leg ] Blood Pressure 167/97 149/64 O2 Sat by Pulse 100 98 Oximetry O2 Sat by Pulse Oximetry [ Assessment] 11/13/16 11/13/16 11/13/16 08:18 08:24 09:00 Temperature Pulse Rate 113 H 110 H Respiratory 28 H Rate Respiratory Rate [Right Leg ] Blood Pressure 149/64 148/74 O2 Sat by Pulse 99 97 Oximetry O2 Sat by Pulse 99 Oximetry [ Assessment] 11/13/16 11/13/16 09:58 10:03 Temperature Pulse Rate 117 H Respiratory 28 H Rate Respiratory Rate [Right Leg ] Blood Pressure 148/74 O2 Sat by Pulse 99 Oximetry O2 Sat by Pulse Oximetry [ Assessment] Constitutional: no acute distress, other (sedated) Eyes: non-icteric ENT: oropharynx moist Neck: supple, no lymphadenopathy Effort: mildly labored Ascultation: Bilateral: diminished breath sounds, rales Cardiovascular: regular rate and rhythm, other (tachycardia) Gastrointestinal: normoactive bowel sounds, soft, non-tender, non-distended Integumentary: normal Extremities: no cyanosis, no edema, no ischemia or petechiae, other (s/p right BKA) Neurologic: non-focal exam (grossly), pupils equal and round, other (sedated) Psychiatric: other (sedated) CBC and BMP: 11/14/16 04:42 11/14/16 04:42 ABG, PT/INR, D-dimer: ABG POC ABG pH 7.353 (7.35-7.45) 11/09/16 15:24 POC ABG pCO2 33.8 (35-45) L 11/09/16 15:24 POC ABG pO2 131 (80-105) H 11/09/16 15:24 POC ABG HCO3 18.8 11/09/16 15:24 POC ABG Total CO2 20 11/09/16 15:24 POC ABG O2 Sat 99 11/09/16 15:24 PT/INR, D-dimer PT 16.4 Sec. (12.2-14.9) H 10/17/16 16:07 INR 1.33 (0.87-1.13) H 10/17/16 16:07 Abnormal lab findings: Abnormal Labs 10/13/16 10/13/1610/13/17 06:38 06:38 07:23 WBC RBC Hgb Hct MCV RDW Plt Count Lymph % (Auto) [place] % (Auto) [place] # Seg Neutrophils % Seg Neuts % (Manual) Lymphocytes % (Manual) Monocytes % (Manual) Basophils % (Manual) Nucleated RBC % Seg Neutrophils # Seg Neutrophils # Man Lymphocytes # (Manual) Monocytes # (Manual) Eosinophils # (Manual) Basophils # (Manual) PT INR APTT Heparin Anti-Xa Level POC ABG pH POC ABG pCO2 POC ABG pO2 Sodium Potassium 6.2 H* Chloride Carbon Dioxide 8 L* BUN 85 H Creatinine 2.8 H Glucose 602 H* POC Glucose 495 H Calcium 7.9 L Phosphorus 6.9 H D Magnesium 3.0 H AST Alkaline Phosphatase C-Reactive Protein Total Protein Albumin Lipase Vitamin B12 TSH Urine WBC (Auto) Urine Chloride Urine Total Protein Vancomycin Trough Crossmatch 10/13/16 10/13/16 10/13/16 08:49 08:55 10:12 WBC RBC Hgb Hct MCV RDW Plt Count Lymph % (Auto) [place] % (Auto) [place] # Seg Neutrophils % Seg Neuts % (Manual) Lymphocytes % (Manual) Monocytes % (Manual) Basophils % (Manual) Nucleated RBC % Seg Neutrophils # Seg Neutrophils # Man Lymphocytes # (Manual) Monocytes # (Manual) Eosinophils # (Manual) Basophils # (Manual) PT INR APTT Heparin Anti-Xa Level POC ABG pH POC ABG pCO2 POC ABG pO2 Sodium Potassium 5.6 H Chloride Carbon Dioxide 11 L BUN 77 H Creatinine 2.7 H Glucose 457 H POC Glucose > 500 H 424 H Calcium 8.0 L Phosphorus Magnesium AST Alkaline Phosphatase C-Reactive Protein Total Protein Albumin Lipase Vitamin B12 TSH Urine WBC (Auto) Urine Chloride Urine Total Protein Vancomycin Trough Crossmatch 10/13/16 10/13/16 10/13/16 10:44 11:22 12:20 WBC RBC Hgb Hct MCV RDW Plt Count Lymph % (Auto) [place] % (Auto) [place] # Seg Neutrophils % Seg Neuts % (Manual) Lymphocytes % (Manual) Monocytes % (Manual) Basophils % (Manual) Nucleated RBC % Seg Neutrophils # Seg Neutrophils # Man Lymphocytes # (Manual) Monocytes # (Manual) Eosinophils # (Manual) Basophils # (Manual) PT INR APTT Heparin Anti-Xa Level POC ABG pH POC ABG pCO2 POC ABG pO2 Sodium Potassium 5.4 H Chloride Carbon Dioxide 14 L BUN 72 H Creatinine 2.6 H Glucose 383 H POC Glucose 391 H 313 H Calcium 8.2 L Phosphorus Magnesium AST Alkaline Phosphatase C-Reactive Protein Total Protein Albumin Lipase Vitamin B12 TSH Urine WBC (Auto) Urine Chloride Urine Total Protein Vancomycin Trough Crossmatch 10/13/16 10/13/16 10/13/16 13:32 14:44 15:57 WBC RBC Hgb Hct MCV RDW Plt Count Lymph % (Auto) [place] % (Auto) [place] # Seg Neutrophils % Seg Neuts % (Manual) Lymphocytes % (Manual) Monocytes % (Manual) Basophils % (Manual) Nucleated RBC % Seg Neutrophils # Seg Neutrophils # Man Lymphocytes # (Manual) Monocytes # (Manual) Eosinophils # (Manual) Basophils # (Manual) PT INR APTT Heparin Anti-Xa Level POC ABG pH POC ABG pCO2 POC ABG pO2 Sodium Potassium Chloride Carbon Dioxide BUN Creatinine Glucose POC Glucose 296 H 210 H 190 H Calcium Phosphorus Magnesium AST Alkaline Phosphatase C-Reactive Protein Total Protein Albumin Lipase Vitamin B12 TSH Urine WBC (Auto) Urine Chloride Urine Total Protein Vancomycin Trough Crossmatch 10/13/16 10/13/16 10/13/16 16:14 16:14 17:17 WBC RBC Hgb Hct MCV RDW Plt Count Lymph % (Auto) [place] % (Auto) [place] # Seg Neutrophils % Seg Neuts % (Manual) Lymphocytes % (Manual) Monocytes % (Manual) Basophils % (Manual) Nucleated RBC % Seg Neutrophils # Seg Neutrophils # Man Lymphocytes # (Manual) Monocytes # (Manual) Eosinophils # (Manual) Basophils # (Manual) PT INR APTT Heparin Anti-Xa Level POC ABG pH POC ABG pCO2 POC ABG pO2 Sodium Potassium Chloride Carbon Dioxide 17 L BUN 58 H Creatinine 1.8 H Glucose 172 H POC Glucose 193 H Calcium 7.7 L Phosphorus Magnesium AST Alkaline Phosphatase C-Reactive Protein 10.50 H Total Protein Albumin Lipase Vitamin B12 TSH Urine WBC (Auto) Urine Chloride Urine Total Protein Vancomycin Trough Crossmatch 10/13/16 10/13/16 10/13/16 17:55 18:32 19:41 WBC RBC Hgb Hct MCV RDW Plt Count Lymph % (Auto) [place] % (Auto) [place] # Seg Neutrophils % Seg Neuts % (Manual) Lymphocytes % (Manual) Monocytes % (Manual) Basophils % (Manual) Nucleated RBC % Seg Neutrophils # Seg Neutrophils # Man Lymphocytes # (Manual) Monocytes # (Manual) Eosinophils # (Manual) Basophils # (Manual) PT INR APTT Heparin Anti-Xa Level POC ABG pH POC ABG pCO2 30.6 L POC ABG pO2 218 H Sodium Potassium Chloride Carbon Dioxide BUN Creatinine Glucose POC Glucose 192 H 177 H Calcium Phosphorus Magnesium AST Alkaline Phosphatase C-Reactive Protein Total Protein Albumin Lipase Vitamin B12 TSH Urine WBC (Auto) Urine Chloride Urine Total Protein Vancomycin Trough Crossmatch 10/13/16 10/13/16 10/13/16 20:54 22:07 23:13 WBC RBC Hgb Hct MCV RDW Plt Count Lymph % (Auto) [place] % (Auto) [place] # Seg Neutrophils % Seg Neuts % (Manual) Lymphocytes % (Manual) Monocytes % (Manual) Basophils % (Manual) Nucleated RBC % Seg Neutrophils # Seg Neutrophils # Man Lymphocytes # (Manual) Monocytes # (Manual) Eosinophils # (Manual) Basophils # (Manual) PT INR APTT Heparin Anti-Xa Level POC ABG pH POC ABG pCO2 POC ABG pO2 Sodium Potassium Chloride Carbon Dioxide BUN Creatinine Glucose POC Glucose 178 H 160 H 168 H Calcium Phosphorus Magnesium AST Alkaline Phosphatase C-Reactive Protein Total Protein Albumin Lipase Vitamin B12 TSH Urine WBC (Auto) Urine Chloride Urine Total Protein Vancomycin Trough Crossmatch 10/13/16 10/13/16 10/14/16 23:25 Unknown 00:21 WBC RBC Hgb Hct MCV RDW Plt Count Lymph % (Auto) [place] % (Auto) [place] # Seg Neutrophils % Seg Neuts % (Manual) Lymphocytes % (Manual) Monocytes % (Manual) Basophils % (Manual) Nucleated RBC % Seg Neutrophils # Seg Neutrophils # Man Lymphocytes # (Manual) Monocytes # (Manual) Eosinophils # (Manual) Basophils # (Manual) PT INR APTT Heparin Anti-Xa Level POC ABG pH POC ABG pCO2 POC ABG pO2 Sodium 148 H Potassium Chloride 114.6 H Carbon Dioxide 17 L BUN 56 H Creatinine 1.6 H Glucose 151 H POC Glucose 171 H Calcium 7.8 L Phosphorus Magnesium AST Alkaline Phosphatase C-Reactive Protein Total Protein Albumin Lipase Vitamin B12 TSH Urine WBC (Auto) Urine Chloride 10.0 L Urine Total Protein < 4 L Vancomycin Trough Crossmatch 10/14/16 10/14/16 10/14/16 01:22 02:29 03:30 WBC RBC Hgb Hct MCV RDW Plt Count Lymph % (Auto) [place] % (Auto) [place] # Seg Neutrophils % Seg Neuts % (Manual) Lymphocytes % (Manual) Monocytes % (Manual) Basophils % (Manual) Nucleated RBC % Seg Neutrophils # Seg Neutrophils # Man Lymphocytes # (Manual) Monocytes # (Manual) Eosinophils # (Manual) Basophils # (Manual) PT INR APTT Heparin Anti-Xa Level POC ABG pH POC ABG pCO2 POC ABG pO2 Sodium Potassium Chloride Carbon Dioxide BUN Creatinine Glucose POC Glucose 144 H 136 H 143 H Calcium Phosphorus Magnesium AST Alkaline Phosphatase C-Reactive Protein Total Protein Albumin Lipase Vitamin B12 TSH Urine WBC (Auto) Urine Chloride Urine Total Protein Vancomycin Trough Crossmatch 10/14/16 10/14/16 10/14/16 04:28 05:16 05:44 WBC RBC Hgb Hct MCV RDW Plt Count Lymph % (Auto) [place] % (Auto) [place] # Seg Neutrophils % Seg Neuts % (Manual) Lymphocytes % (Manual) Monocytes % (Manual) Basophils % (Manual) Nucleated RBC % Seg Neutrophils # Seg Neutrophils # Man Lymphocytes # (Manual) Monocytes # (Manual) Eosinophils # (Manual) Basophils # (Manual) PT INR APTT Heparin Anti-Xa Level POC ABG pH POC ABG pCO2 28.2 L POC ABG pO2 125 H Sodium Potassium Chloride Carbon Dioxide BUN Creatinine Glucose POC Glucose 133 H 160 H Calcium Phosphorus Magnesium AST Alkaline Phosphatase C-Reactive Protein Total Protein Albumin Lipase Vitamin B12 TSH Urine WBC (Auto) Urine Chloride Urine Total Protein Vancomycin Trough Crossmatch 10/14/16 10/14/16 10/14/16 06:12 06:45 07:03 WBC RBC Hgb Hct MCV RDW Plt Count Lymph % (Auto) [place] % (Auto) [place] # Seg Neutrophils % Seg Neuts % (Manual) Lymphocytes % (Manual) Monocytes % (Manual) Basophils % (Manual) Nucleated RBC % Seg Neutrophils # Seg Neutrophils # Man Lymphocytes # (Manual) Monocytes # (Manual) Eosinophils # (Manual) Basophils # (Manual) PT INR APTT Heparin Anti-Xa Level POC ABG pH POC ABG pCO2 POC ABG pO2 Sodium 149 H Potassium Chloride 115.4 H Carbon Dioxide 17 L BUN 45 H Creatinine 1.5 H Glucose 139 H POC Glucose 149 H Calcium 7.4 L Phosphorus 1.0 L D Magnesium AST Alkaline Phosphatase C-Reactive Protein Total Protein Albumin Lipase Vitamin B12 TSH Urine WBC (Auto) Urine Chloride Urine Total Protein Vancomycin Trough Crossmatch 10/14/16 10/14/16 10/14/16 07:03 08:02 09:16 WBC RBC Hgb Hct MCV RDW Plt Count Lymph % (Auto) [place] % (Auto) [place] # Seg Neutrophils % Seg Neuts % (Manual) Lymphocytes % (Manual) Monocytes % (Manual) Basophils % (Manual) Nucleated RBC % Seg Neutrophils # Seg Neutrophils # Man Lymphocytes # (Manual) Monocytes # (Manual) Eosinophils # (Manual) Basophils # (Manual) PT INR APTT Heparin Anti-Xa Level POC ABG pH POC ABG pCO2 POC ABG pO2 Sodium Potassium Chloride Carbon Dioxide BUN Creatinine Glucose POC Glucose 156 H 158 H Calcium Phosphorus Magnesium AST Alkaline Phosphatase C-Reactive Protein Total Protein Albumin Lipase 738 H Vitamin B12 TSH Urine WBC (Auto) Urine Chloride Urine Total Protein Vancomycin Trough Crossmatch 10/14/16 10/14/16 10/14/16 10:26 11:03 11:57 WBC RBC Hgb Hct MCV RDW Plt Count Lymph % (Auto) [place] % (Auto) [place] # Seg Neutrophils % Seg Neuts % (Manual) Lymphocytes % (Manual) Monocytes % (Manual) Basophils % (Manual) Nucleated RBC % Seg Neutrophils # Seg Neutrophils # Man Lymphocytes # (Manual) Monocytes # (Manual) Eosinophils # (Manual) Basophils # (Manual) PT INR APTT Heparin Anti-Xa Level POC ABG pH 7.198 L POC ABG pCO2 47.5 H POC ABG pO2 Sodium Potassium Chloride Carbon Dioxide BUN Creatinine Glucose POC Glucose 174 H 189 H Calcium Phosphorus Magnesium AST Alkaline Phosphatase C-Reactive Protein Total Protein Albumin Lipase Vitamin B12 TSH Urine WBC (Auto) Urine Chloride Urine Total Protein Vancomycin Trough Crossmatch 10/14/16 10/14/16 10/14/16 12:02 12:02 13:11 WBC 13.4 H RBC 3.60 L Hgb Hct MCV 98 H D RDW 13.1 L Plt Count Lymph % (Auto) [place] % (Auto) [place] # Seg Neutrophils % Seg Neuts % (Manual) Lymphocytes % (Manual) Monocytes % (Manual) Basophils % (Manual) Nucleated RBC % Seg Neutrophils # Seg Neutrophils # Man Lymphocytes # (Manual) Monocytes # (Manual) Eosinophils # (Manual) Basophils # (Manual) PT INR APTT Heparin Anti-Xa Level POC ABG pH POC ABG pCO2 POC ABG pO2 Sodium Potassium Chloride 110.7 H Carbon Dioxide 19 L BUN 38 H Creatinine 1.4 H Glucose 182 H POC Glucose 173 H Calcium 7.5 L Phosphorus Magnesium AST Alkaline Phosphatase C-Reactive Protein Total Protein Albumin Lipase Vitamin B12 TSH Urine WBC (Auto) Urine Chloride Urine Total Protein Vancomycin Trough Crossmatch 10/14/16 10/14/16 10/14/16 14:24 15:31 16:36 WBC RBC Hgb Hct MCV RDW Plt Count Lymph % (Auto) [place] % (Auto) [place] # Seg Neutrophils % Seg Neuts % (Manual) Lymphocytes % (Manual) Monocytes % (Manual) Basophils % (Manual) Nucleated RBC % Seg Neutrophils # Seg Neutrophils # Man Lymphocytes # (Manual) Monocytes # (Manual) Eosinophils # (Manual) Basophils # (Manual) PT INR APTT Heparin Anti-Xa Level POC ABG pH POC ABG pCO2 POC ABG pO2 Sodium Potassium Chloride Carbon Dioxide BUN Creatinine Glucose POC Glucose 123 H 124 H 156 H Calcium Phosphorus Magnesium AST Alkaline Phosphatase C-Reactive Protein Total Protein Albumin Lipase Vitamin B12 TSH Urine WBC (Auto) Urine Chloride Urine Total Protein Vancomycin Trough Crossmatch 10/14/16 10/14/16 10/14/16 17:43 19:00 20:08 WBC RBC Hgb Hct MCV RDW Plt Count Lymph % (Auto) [place] % (Auto) [place] # Seg Neutrophils % Seg Neuts % (Manual) Lymphocytes % (Manual) Monocytes % (Manual) Basophils % (Manual) Nucleated RBC % Seg Neutrophils # Seg Neutrophils # Man Lymphocytes # (Manual) Monocytes # (Manual) Eosinophils # (Manual) Basophils # (Manual) PT INR APTT Heparin Anti-Xa Level POC ABG pH POC ABG pCO2 POC ABG pO2 Sodium Potassium Chloride Carbon Dioxide BUN Creatinine Glucose POC Glucose 154 H 123 H 138 H Calcium Phosphorus Magnesium AST Alkaline Phosphatase C-Reactive Protein Total Protein Albumin Lipase Vitamin B12 TSH Urine WBC (Auto) Urine Chloride Urine Total Protein Vancomycin Trough Crossmatch 10/14/16 10/14/16 10/14/16 21:17 22:25 23:37 WBC RBC Hgb Hct MCV RDW Plt Count Lymph % (Auto) [place] % (Auto) [place] # Seg Neutrophils % Seg Neuts % (Manual) Lymphocytes % (Manual) Monocytes % (Manual) Basophils % (Manual) Nucleated RBC % Seg Neutrophils # Seg Neutrophils # Man Lymphocytes # (Manual) Monocytes # (Manual) Eosinophils # (Manual) Basophils # (Manual) PT INR APTT Heparin Anti-Xa Level POC ABG pH POC ABG pCO2 POC ABG pO2 Sodium Potassium Chloride Carbon Dioxide BUN Creatinine Glucose POC Glucose 148 H 132 H 137 H Calcium Phosphorus Magnesium AST Alkaline Phosphatase C-Reactive Protein Total Protein Albumin Lipase Vitamin B12 TSH Urine WBC (Auto) Urine Chloride Urine Total Protein Vancomycin Trough Crossmatch 10/15/16 10/15/16 10/15/16 00:49 01:53 03:06 WBC RBC Hgb Hct MCV RDW Plt Count Lymph % (Auto) [place] % (Auto) [place] # Seg Neutrophils % Seg Neuts % (Manual) Lymphocytes % (Manual) Monocytes % (Manual) Basophils % (Manual) Nucleated RBC % Seg Neutrophils # Seg Neutrophils # Man Lymphocytes # (Manual) Monocytes # (Manual) Eosinophils # (Manual) Basophils # (Manual) PT INR APTT Heparin Anti-Xa Level POC ABG pH POC ABG pCO2 POC ABG pO2 Sodium Potassium Chloride Carbon Dioxide BUN Creatinine Glucose POC Glucose 132 H 134 H 134 H Calcium Phosphorus Magnesium AST Alkaline Phosphatase C-Reactive Protein Total Protein Albumin Lipase Vitamin B12 TSH Urine WBC (Auto) Urine Chloride Urine Total Protein Vancomycin Trough Crossmatch 10/15/16 10/15/16 10/15/16 04:40 04:46 06:21 WBC RBC Hgb Hct MCV RDW Plt Count Lymph % (Auto) [place] % (Auto) [place] # Seg Neutrophils % Seg Neuts % (Manual) Lymphocytes % (Manual) Monocytes % (Manual) Basophils % (Manual) Nucleated RBC % Seg Neutrophils # Seg Neutrophils # Man Lymphocytes # (Manual) Monocytes # (Manual) Eosinophils # (Manual) Basophils # (Manual) PT INR APTT Heparin Anti-Xa Level POC ABG pH POC ABG pCO2 30.7 L POC ABG pO2 108 H Sodium Potassium Chloride 109.0 H Carbon Dioxide 17 L BUN 27 H Creatinine Glucose 124 H POC Glucose 160 H Calcium 7.5 L Phosphorus Magnesium AST 79 H Alkaline Phosphatase C-Reactive Protein Total Protein 5.5 L Albumin 3.0 L Lipase Vitamin B12 TSH Urine WBC (Auto) Urine Chloride Urine Total Protein Vancomycin Trough Crossmatch 10/15/16 10/15/16 10/15/16 07:12 08:01 09:03 WBC RBC Hgb Hct MCV RDW Plt Count Lymph % (Auto) [place] % (Auto) [place] # Seg Neutrophils % Seg Neuts % (Manual) Lymphocytes % (Manual) Monocytes % (Manual) Basophils % (Manual) Nucleated RBC % Seg Neutrophils # Seg Neutrophils # Man Lymphocytes # (Manual) Monocytes # (Manual) Eosinophils # (Manual) Basophils # (Manual) PT INR APTT Heparin Anti-Xa Level POC ABG pH POC ABG pCO2 POC ABG pO2 Sodium Potassium Chloride Carbon Dioxide BUN Creatinine Glucose POC Glucose 179 H 187 H 165 H Calcium Phosphorus Magnesium AST Alkaline Phosphatase C-Reactive Protein Total Protein Albumin Lipase Vitamin B12 TSH Urine WBC (Auto) Urine Chloride Urine Total Protein Vancomycin Trough Crossmatch 10/15/16 10/15/16 10/15/16 10:06 10:06 10:07 WBC 12.1 H RBC 3.01 L Hgb 9.7 L Hct 29.6 L MCV 98 H RDW Plt Count 129 L Lymph % (Auto) [place] % (Auto) [place] # Seg Neutrophils % Seg Neuts % (Manual) Lymphocytes % (Manual) Monocytes % (Manual) Basophils % (Manual) Nucleated RBC % Seg Neutrophils # Seg Neutrophils # Man Lymphocytes # (Manual) Monocytes # (Manual) Eosinophils # (Manual) Basophils # (Manual) PT INR APTT Heparin Anti-Xa Level POC ABG pH POC ABG pCO2 POC ABG pO2 Sodium Potassium 3.2 L D Chloride 109.6 H Carbon Dioxide 18 L BUN 22 H Creatinine Glucose 127 H POC Glucose 147 H Calcium 7.0 L Phosphorus Magnesium AST Alkaline Phosphatase C-Reactive Protein Total Protein Albumin Lipase Vitamin B12 TSH Urine WBC (Auto) Urine Chloride Urine Total Protein Vancomycin Trough Crossmatch 10/15/16 10/15/16 10/15/16 11:05 11:06 11:57 WBC RBC Hgb Hct MCV RDW Plt Count Lymph % (Auto) [place] % (Auto) [place] # Seg Neutrophils % Seg Neuts % (Manual) Lymphocytes % (Manual) Monocytes % (Manual) Basophils % (Manual) Nucleated RBC % Seg Neutrophils # Seg Neutrophils # Man Lymphocytes # (Manual) Monocytes # (Manual) Eosinophils # (Manual) Basophils # (Manual) PT INR APTT Heparin Anti-Xa Level POC ABG pH 7.305 L POC ABG pCO2 POC ABG pO2 Sodium Potassium Chloride Carbon Dioxide BUN Creatinine Glucose POC Glucose 145 H Calcium Phosphorus Magnesium AST Alkaline Phosphatase C-Reactive Protein Total Protein Albumin Lipase Vitamin B12 TSH Urine WBC (Auto) 7.0 H Urine Chloride Urine Total Protein Vancomycin Trough Crossmatch 10/15/16 10/15/16 10/15/16 12:04 13:59 15:24 WBC RBC Hgb Hct MCV RDW Plt Count Lymph % (Auto) [place] % (Auto) [place] # Seg Neutrophils % Seg Neuts % (Manual) Lymphocytes % (Manual) Monocytes % (Manual) Basophils % (Manual) Nucleated RBC % Seg Neutrophils # Seg Neutrophils # Man Lymphocytes # (Manual) Monocytes # (Manual) Eosinophils # (Manual) Basophils # (Manual) PT INR APTT Heparin Anti-Xa Level POC ABG pH POC ABG pCO2 POC ABG pO2 Sodium Potassium Chloride Carbon Dioxide BUN Creatinine Glucose POC Glucose 123 H 147 H 153 H Calcium Phosphorus Magnesium AST Alkaline Phosphatase C-Reactive Protein Total Protein Albumin Lipase Vitamin B12 TSH Urine WBC (Auto) Urine Chloride Urine Total Protein Vancomycin Trough Crossmatch 10/15/16 10/15/16 10/15/16 16:30 17:34 18:30 WBC RBC Hgb Hct MCV RDW Plt Count Lymph % (Auto) [place] % (Auto) [place] # Seg Neutrophils % Seg Neuts % (Manual) Lymphocytes % (Manual) Monocytes % (Manual) Basophils % (Manual) Nucleated RBC % Seg Neutrophils # Seg Neutrophils # Man Lymphocytes # (Manual) Monocytes # (Manual) Eosinophils # (Manual) Basophils # (Manual) PT INR APTT Heparin Anti-Xa Level POC ABG pH POC ABG pCO2 POC ABG pO2 Sodium Potassium Chloride Carbon Dioxide BUN Creatinine Glucose POC Glucose 223 H 236 H 164 H Calcium Phosphorus Magnesium AST Alkaline Phosphatase C-Reactive Protein Total Protein Albumin Lipase Vitamin B12 TSH Urine WBC (Auto) Urine Chloride Urine Total Protein Vancomycin Trough Crossmatch 10/15/16 10/15/16 10/15/16 19:14 20:31 21:23 WBC RBC Hgb Hct MCV RDW Plt Count Lymph % (Auto) [place] % (Auto) [place] # Seg Neutrophils % Seg Neuts % (Manual) Lymphocytes % (Manual) Monocytes % (Manual) Basophils % (Manual) Nucleated RBC % Seg Neutrophils # Seg Neutrophils # Man Lymphocytes # (Manual) Monocytes # (Manual) Eosinophils # (Manual) Basophils # (Manual) PT INR APTT Heparin Anti-Xa Level POC ABG pH POC ABG pCO2 POC ABG pO2 Sodium Potassium Chloride Carbon Dioxide BUN Creatinine Glucose POC Glucose 138 H 158 H 158 H Calcium Phosphorus Magnesium AST Alkaline Phosphatase C-Reactive Protein Total Protein Albumin Lipase Vitamin B12 TSH Urine WBC (Auto) Urine Chloride Urine Total Protein Vancomycin Trough Crossmatch 10/15/16 10/15/16 10/16/16 22:04 22:57 00:11 WBC RBC Hgb Hct MCV RDW Plt Count Lymph % (Auto) [place] % (Auto) [place] # Seg Neutrophils % Seg Neuts % (Manual) Lymphocytes % (Manual) Monocytes % (Manual) Basophils % (Manual) Nucleated RBC % Seg Neutrophils # Seg Neutrophils # Man Lymphocytes # (Manual) Monocytes # (Manual) Eosinophils # (Manual) Basophils # (Manual) PT INR APTT Heparin Anti-Xa Level POC ABG pH POC ABG pCO2 POC ABG pO2 Sodium Potassium Chloride Carbon Dioxide BUN Creatinine Glucose POC Glucose 168 H 213 H 166 H Calcium Phosphorus Magnesium AST Alkaline Phosphatase C-Reactive Protein Total Protein Albumin Lipase Vitamin B12 TSH Urine WBC (Auto) Urine Chloride Urine Total Protein Vancomycin Trough Crossmatch 10/16/16 10/16/16 10/16/16 01:16 02:32 03:38 WBC RBC Hgb Hct MCV RDW Plt Count Lymph % (Auto) [place] % (Auto) [place] # Seg Neutrophils % Seg Neuts % (Manual) Lymphocytes % (Manual) Monocytes % (Manual) Basophils % (Manual) Nucleated RBC % Seg Neutrophils # Seg Neutrophils # Man Lymphocytes # (Manual) Monocytes # (Manual) Eosinophils # (Manual) Basophils # (Manual) PT INR APTT Heparin Anti-Xa Level POC ABG pH POC ABG pCO2 POC ABG pO2 Sodium Potassium Chloride Carbon Dioxide BUN Creatinine Glucose POC Glucose 171 H 164 H 147 H Calcium Phosphorus Magnesium AST Alkaline Phosphatase C-Reactive Protein Total Protein Albumin Lipase Vitamin B12 TSH Urine WBC (Auto) Urine Chloride Urine Total Protein Vancomycin Trough Crossmatch 10/16/16 10/16/16 10/16/16 04:14 04:14 04:49 WBC RBC Hgb Hct MCV RDW Plt Count Lymph % (Auto) [place] % (Auto) [place] # Seg Neutrophils % Seg Neuts % (Manual) Lymphocytes % (Manual) Monocytes % (Manual) Basophils % (Manual) Nucleated RBC % Seg Neutrophils # Seg Neutrophils # Man Lymphocytes # (Manual) Monocytes # (Manual) Eosinophils # (Manual) Basophils # (Manual) PT INR APTT Heparin Anti-Xa Level POC ABG pH POC ABG pCO2 POC ABG pO2 Sodium 147 H Potassium Chloride 110.9 H Carbon Dioxide 19 L BUN Creatinine Glucose 139 H POC Glucose 144 H Calcium 7.3 L Phosphorus 2.3 L Magnesium AST Alkaline Phosphatase C-Reactive Protein Total Protein Albumin Lipase 143 H Vitamin B12 TSH Urine WBC (Auto) Urine Chloride Urine Total Protein Vancomycin Trough Crossmatch 02/10/16/16 10/16/16 05:03 05:41 05:58 WBC 16.5 H RBC 3.36 L Hgb Hct MCV 98 H RDW 13.1 L Plt Count Lymph % (Auto) 8.5 L [place] % (Auto) 7.6 H [place] # 1.3 H Seg Neutrophils % 83.3 H Seg Neuts % (Manual) Lymphocytes % (Manual) Monocytes % (Manual) Basophils % (Manual) Nucleated RBC % Seg Neutrophils # 13.8 H Seg Neutrophils # Man Lymphocytes # (Manual) Monocytes # (Manual) Eosinophils # (Manual) Basophils # (Manual) PT INR APTT Heparin Anti-Xa Level POC ABG pH POC ABG pCO2 30.7 L POC ABG pO2 128 H Sodium Potassium Chloride Carbon Dioxide BUN Creatinine Glucose POC Glucose 131 H Calcium Phosphorus Magnesium AST Alkaline Phosphatase C-Reactive Protein Total Protein Albumin Lipase Vitamin B12 TSH Urine WBC (Auto) Urine Chloride Urine Total Protein Vancomycin Trough Crossmatch 10/16/16 10/16/16 10/16/16 06:32 09:27 09:35 WBC RBC Hgb Hct MCV RDW Plt Count Lymph % (Auto) [place] % (Auto) [place] # Seg Neutrophils % Seg Neuts % (Manual) Lymphocytes % (Manual) Monocytes % (Manual) Basophils % (Manual) Nucleated RBC % Seg Neutrophils # Seg Neutrophils # Man Lymphocytes # (Manual) Monocytes # (Manual) Eosinophils # (Manual) Basophils # (Manual) PT INR APTT Heparin Anti-Xa Level POC ABG pH POC ABG pCO2 32.8 L POC ABG pO2 137 H Sodium Potassium Chloride Carbon Dioxide BUN Creatinine Glucose POC Glucose 121 H 150 H Calcium Phosphorus Magnesium AST Alkaline Phosphatase C-Reactive Protein Total Protein Albumin Lipase Vitamin B12 TSH Urine WBC (Auto) Urine Chloride Urine Total Protein Vancomycin Trough Crossmatch 10/16/16 10/16/16 10/16/16 10:47 13:27 14:24 WBC RBC Hgb Hct MCV RDW Plt Count Lymph % (Auto) [place] % (Auto) [place] # Seg Neutrophils % Seg Neuts % (Manual) Lymphocytes % (Manual) Monocytes % (Manual) Basophils % (Manual) Nucleated RBC % Seg Neutrophils # Seg Neutrophils # Man Lymphocytes # (Manual) Monocytes # (Manual) Eosinophils # (Manual) Basophils # (Manual) PT INR APTT Heparin Anti-Xa Level POC ABG pH POC ABG pCO2 POC ABG pO2 Sodium Potassium Chloride Carbon Dioxide BUN Creatinine Glucose POC Glucose 184 H 171 H 174 H Calcium Phosphorus Magnesium AST Alkaline Phosphatase C-Reactive Protein Total Protein Albumin Lipase Vitamin B12 TSH Urine WBC (Auto) Urine Chloride Urine Total Protein Vancomycin Trough Crossmatch 10/16/16 10/16/16 10/16/16 15:48 16:26 18:17 WBC RBC Hgb Hct MCV RDW Plt Count Lymph % (Auto) [place] % (Auto) [place] # Seg Neutrophils % Seg Neuts % (Manual) Lymphocytes % (Manual) Monocytes % (Manual) Basophils % (Manual) Nucleated RBC % Seg Neutrophils # Seg Neutrophils # Man Lymphocytes # (Manual) Monocytes # (Manual) Eosinophils # (Manual) Basophils # (Manual) PT INR APTT Heparin Anti-Xa Level POC ABG pH POC ABG pCO2 POC ABG pO2 Sodium Potassium Chloride Carbon Dioxide BUN Creatinine Glucose POC Glucose 205 H 204 H 234 H Calcium Phosphorus Magnesium AST Alkaline Phosphatase C-Reactive Protein Total Protein Albumin Lipase Vitamin B12 TSH Urine WBC (Auto) Urine Chloride Urine Total Protein Vancomycin Trough Crossmatch 10/16/16 10/16/16 10/16/16 19:40 20:33 21:36 WBC RBC Hgb Hct MCV RDW Plt Count Lymph % (Auto) [place] % (Auto) [place] # Seg Neutrophils % Seg Neuts % (Manual) Lymphocytes % (Manual) Monocytes % (Manual) Basophils % (Manual) Nucleated RBC % Seg Neutrophils # Seg Neutrophils # Man Lymphocytes # (Manual) Monocytes # (Manual) Eosinophils # (Manual) Basophils # (Manual) PT INR APTT Heparin Anti-Xa Level POC ABG pH POC ABG pCO2 POC ABG pO2 Sodium Potassium Chloride Carbon Dioxide BUN Creatinine Glucose POC Glucose 167 H 153 H 158 H Calcium Phosphorus Magnesium AST Alkaline Phosphatase C-Reactive Protein Total Protein Albumin Lipase Vitamin B12 TSH Urine WBC (Auto) Urine Chloride Urine Total Protein Vancomycin Trough Crossmatch 10/16/16 10/16/16 10/17/16 22:54 23:48 00:47 WBC RBC Hgb Hct MCV RDW Plt Count Lymph % (Auto) [place] % (Auto) [place] # Seg Neutrophils % Seg Neuts % (Manual) Lymphocytes % (Manual) Monocytes % (Manual) Basophils % (Manual) Nucleated RBC % Seg Neutrophils # Seg Neutrophils # Man Lymphocytes # (Manual) Monocytes # (Manual) Eosinophils # (Manual) Basophils # (Manual) PT INR APTT Heparin Anti-Xa Level POC ABG pH POC ABG pCO2 POC ABG pO2 Sodium Potassium Chloride Carbon Dioxide BUN Creatinine Glucose POC Glucose 180 H 207 H 196 H Calcium Phosphorus Magnesium AST Alkaline Phosphatase C-Reactive Protein Total Protein Albumin Lipase Vitamin B12 TSH Urine WBC (Auto) Urine Chloride Urine Total Protein Vancomycin Trough Crossmatch 10/17/16 10/17/16 10/17/16 01:57 02:49 03:50 WBC RBC Hgb Hct MCV RDW Plt Count Lymph % (Auto) [place] % (Auto) [place] # Seg Neutrophils % Seg Neuts % (Manual) Lymphocytes % (Manual) Monocytes % (Manual) Basophils % (Manual) Nucleated RBC % Seg Neutrophils # Seg Neutrophils # Man Lymphocytes # (Manual) Monocytes # (Manual) Eosinophils # (Manual) Basophils # (Manual) PT INR APTT Heparin Anti-Xa Level POC ABG pH POC ABG pCO2 POC ABG pO2 Sodium Potassium Chloride Carbon Dioxide BUN Creatinine Glucose POC Glucose 180 H 151 H 106 H Calcium Phosphorus Magnesium AST Alkaline Phosphatase C-Reactive Protein Total Protein Albumin Lipase Vitamin B12 TSH Urine WBC (Auto) Urine Chloride Urine Total Protein Vancomycin Trough Crossmatch 10/17/16 10/17/16 10/17/16 04:59 06:03 06:35 WBC RBC Hgb Hct MCV RDW Plt Count Lymph % (Auto) [place] % (Auto) [place] # Seg Neutrophils % Seg Neuts % (Manual) Lymphocytes % (Manual) Monocytes % (Manual) Basophils % (Manual) Nucleated RBC % Seg Neutrophils # Seg Neutrophils # Man Lymphocytes # (Manual) Monocytes # (Manual) Eosinophils # (Manual) Basophils # (Manual) PT INR APTT Heparin Anti-Xa Level POC ABG pH 7.453 H POC ABG pCO2 30.1 L POC ABG pO2 111 H Sodium Potassium Chloride Carbon Dioxide BUN Creatinine Glucose POC Glucose 145 H 157 H Calcium Phosphorus Magnesium AST Alkaline Phosphatase C-Reactive Protein Total Protein Albumin Lipase Vitamin B12 TSH Urine WBC (Auto) Urine Chloride Urine Total Protein Vancomycin Trough Crossmatch 10/17/16 10/17/16 10/17/16 07:08 07:11 08:01 WBC RBC Hgb Hct MCV RDW Plt Count Lymph % (Auto) [place] % (Auto) [place] # Seg Neutrophils % Seg Neuts % (Manual) Lymphocytes % (Manual) Monocytes % (Manual) Basophils % (Manual) Nucleated RBC % Seg Neutrophils # Seg Neutrophils # Man Lymphocytes # (Manual) Monocytes # (Manual) Eosinophils # (Manual) Basophils # (Manual) PT INR APTT Heparin Anti-Xa Level POC ABG pH POC ABG pCO2 POC ABG pO2 Sodium 147 H Potassium Chloride 113.8 H Carbon Dioxide 19 L BUN Creatinine Glucose 136 H POC Glucose 136 H 152 H Calcium 7.7 L Phosphorus Magnesium AST Alkaline Phosphatase C-Reactive Protein Total Protein Albumin Lipase Vitamin B12 TSH Urine WBC (Auto) Urine Chloride Urine Total Protein Vancomycin Trough Crossmatch 10/17/16 10/17/16 10/17/16 08:23 09:17 09:53 WBC 18.1 H RBC 3.01 L Hgb 9.7 L Hct 29.4 L MCV 98 H RDW Plt Count 116 L Lymph % (Auto) [place] % (Auto) [place] # Seg Neutrophils % Seg Neuts % (Manual) 77.0 H Lymphocytes % (Manual) 4.0 L Monocytes % (Manual) 12.0 H Basophils % (Manual) Nucleated RBC % Seg Neutrophils # Seg Neutrophils # Man 13.9 H Lymphocytes # (Manual) 0.7 L Monocytes # (Manual) 2.2 H Eosinophils # (Manual) Basophils # (Manual) PT INR APTT Heparin Anti-Xa Level POC ABG pH POC ABG pCO2 POC ABG pO2 Sodium Potassium Chloride Carbon Dioxide BUN Creatinine Glucose POC Glucose 148 H 137 H Calcium Phosphorus Magnesium AST Alkaline Phosphatase C-Reactive Protein Total Protein Albumin Lipase Vitamin B12 TSH Urine WBC (Auto) Urine Chloride Urine Total Protein Vancomycin Trough Crossmatch 10/17/16 10/17/16 10/17/16 11:43 16:07 17:42 WBC RBC Hgb Hct MCV RDW Plt Count Lymph % (Auto) [place] % (Auto) [place] # Seg Neutrophils % Seg Neuts % (Manual) Lymphocytes % (Manual) Monocytes % (Manual) Basophils % (Manual) Nucleated RBC % Seg Neutrophils # Seg Neutrophils # Man Lymphocytes # (Manual) Monocytes # (Manual) Eosinophils # (Manual) Basophils # (Manual) PT 16.4 H INR 1.33 H APTT 38.8 H Heparin Anti-Xa Level POC ABG pH POC ABG pCO2 POC ABG pO2 Sodium Potassium Chloride Carbon Dioxide BUN Creatinine Glucose POC Glucose 179 H 153 H Calcium Phosphorus Magnesium AST Alkaline Phosphatase C-Reactive Protein Total Protein Albumin Lipase Vitamin B12 TSH Urine WBC (Auto) Urine Chloride Urine Total Protein Vancomycin Trough Crossmatch 10/17/16 10/18/16 10/18/16 22:54 04:37 05:39 WBC RBC Hgb Hct MCV RDW Plt Count Lymph % (Auto) [place] % (Auto) [place] # Seg Neutrophils % Seg Neuts % (Manual) Lymphocytes % (Manual) Monocytes % (Manual) Basophils % (Manual) Nucleated RBC % Seg Neutrophils # Seg Neutrophils # Man Lymphocytes # (Manual) Monocytes # (Manual) Eosinophils # (Manual) Basophils # (Manual) PT INR APTT Heparin Anti-Xa Level 0.27 L POC ABG pH 7.454 H POC ABG pCO2 30.8 L POC ABG pO2 115 H Sodium Potassium Chloride Carbon Dioxide BUN Creatinine Glucose POC Glucose 69 L Calcium Phosphorus Magnesium AST Alkaline Phosphatase C-Reactive Protein Total Protein Albumin Lipase Vitamin B12 TSH Urine WBC (Auto) Urine Chloride Urine Total Protein Vancomycin Trough Crossmatch 10/18/16 10/18/16 10/18/16 06:46 06:46 06:46 WBC 20.5 H RBC 2.62 L Hgb 8.4 L Hct 26.0 L MCV 100 H RDW Plt Count Lymph % (Auto) [place] % (Auto) [place] # Seg Neutrophils % Seg Neuts % (Manual) 75.0 H Lymphocytes % (Manual) 9.0 L Monocytes % (Manual) 14.0 H Basophils % (Manual) Nucleated RBC % Seg Neutrophils # Seg Neutrophils # Man 15.4 H Lymphocytes # (Manual) Monocytes # (Manual) 2.9 H Eosinophils # (Manual) Basophils # (Manual) PT INR APTT Heparin Anti-Xa Level POC ABG pH POC ABG pCO2 POC ABG pO2 Sodium Potassium Chloride 110.6 H Carbon Dioxide BUN Creatinine 1.3 H Glucose 153 H POC Glucose Calcium 8.0 L Phosphorus Magnesium 1.6 L AST Alkaline Phosphatase C-Reactive Protein Total Protein Albumin Lipase Vitamin B12 TSH Urine WBC (Auto) Urine Chloride Urine Total Protein Vancomycin Trough Crossmatch 10/18/16 10/18/16 10/18/16 07:30 11:37 17:51 WBC RBC Hgb Hct MCV RDW Plt Count Lymph % (Auto) [place] % (Auto) [place] # Seg Neutrophils % Seg Neuts % (Manual) Lymphocytes % (Manual) Monocytes % (Manual) Basophils % (Manual) Nucleated RBC % Seg Neutrophils # Seg Neutrophils # Man Lymphocytes # (Manual) Monocytes # (Manual) Eosinophils # (Manual) Basophils # (Manual) PT INR APTT Heparin Anti-Xa Level POC ABG pH POC ABG pCO2 POC ABG pO2 Sodium Potassium Chloride Carbon Dioxide BUN Creatinine Glucose POC Glucose 162 H 156 H 164 H Calcium Phosphorus Magnesium AST Alkaline Phosphatase C-Reactive Protein Total Protein Albumin Lipase Vitamin B12 TSH Urine WBC (Auto) Urine Chloride Urine Total Protein Vancomycin Trough Crossmatch 10/18/16 10/19/16 10/19/16 23:44 03:59 05:13 WBC 18.2 H RBC 2.76 L Hgb 9.0 L Hct 27.7 L MCV 100 H RDW Plt Count Lymph % (Auto) [place] % (Auto) [place] # Seg Neutrophils % Seg Neuts % (Manual) 76.0 H Lymphocytes % (Manual) 10.0 L Monocytes % (Manual) Basophils % (Manual) Nucleated RBC % Seg Neutrophils # Seg Neutrophils # Man 13.8 H Lymphocytes # (Manual) Monocytes # (Manual) Eosinophils # (Manual) Basophils # (Manual) PT INR APTT Heparin Anti-Xa Level POC ABG pH POC ABG pCO2 32.2 L POC ABG pO2 128 H Sodium Potassium Chloride Carbon Dioxide BUN Creatinine Glucose POC Glucose 278 H Calcium Phosphorus Magnesium AST Alkaline Phosphatase C-Reactive Protein Total Protein Albumin Lipase Vitamin B12 TSH Urine WBC (Auto) Urine Chloride Urine Total Protein Vancomycin Trough Crossmatch 10/19/16 10/19/16 10/19/16 06:01 06:30 12:20 WBC RBC Hgb Hct MCV RDW Plt Count Lymph % (Auto) [place] % (Auto) [place] # Seg Neutrophils % Seg Neuts % (Manual) Lymphocytes % (Manual) Monocytes % (Manual) Basophils % (Manual) Nucleated RBC % Seg Neutrophils # Seg Neutrophils # Man Lymphocytes # (Manual) Monocytes # (Manual) Eosinophils # (Manual) Basophils # (Manual) PT INR APTT Heparin Anti-Xa Level POC ABG pH POC ABG pCO2 POC ABG pO2 Sodium Potassium Chloride Carbon Dioxide 18 L BUN Creatinine 1.3 H Glucose 262 H POC Glucose 261 H 349 H Calcium 7.7 L Phosphorus 4.8 H D Magnesium AST Alkaline Phosphatase C-Reactive Protein Total Protein Albumin Lipase Vitamin B12 TSH Urine WBC (Auto) Urine Chloride Urine Total Protein Vancomycin Trough Crossmatch 10/19/16 10/20/16 10/20/16 16:48 00:17 05:20 WBC 22.5 H RBC 2.80 L Hgb 8.9 L Hct 28.3 L MCV 101 H RDW Plt Count Lymph % (Auto) [place] % (Auto) [place] # Seg Neutrophils % Seg Neuts % (Manual) Lymphocytes % (Manual) 10.0 L Monocytes % (Manual) Basophils % (Manual) Nucleated RBC % Seg Neutrophils # Seg Neutrophils # Man 13.3 H Lymphocytes # (Manual) Monocytes # (Manual) 1.1 H Eosinophils # (Manual) 0.7 H Basophils # (Manual) PT INR APTT Heparin Anti-Xa Level POC ABG pH POC ABG pCO2 POC ABG pO2 Sodium Potassium Chloride Carbon Dioxide BUN Creatinine Glucose POC Glucose 248 H 346 H Calcium Phosphorus Magnesium AST Alkaline Phosphatase C-Reactive Protein Total Protein Albumin Lipase Vitamin B12 TSH Urine WBC (Auto) Urine Chloride Urine Total Protein Vancomycin Trough Crossmatch 10/20/16 10/20/16 10/20/16 05:20 05:20 06:05 WBC RBC Hgb Hct MCV RDW Plt Count Lymph % (Auto) [place] % (Auto) [place] # Seg Neutrophils % Seg Neuts % (Manual) Lymphocytes % (Manual) Monocytes % (Manual) Basophils % (Manual) Nucleated RBC % Seg Neutrophils # Seg Neutrophils # Man Lymphocytes # (Manual) Monocytes # (Manual) Eosinophils # (Manual) Basophils # (Manual) PT INR APTT Heparin Anti-Xa Level 0.20 L POC ABG pH POC ABG pCO2 POC ABG pO2 Sodium Potassium Chloride Carbon Dioxide BUN 20 H Creatinine Glucose 374 H POC Glucose 337 H Calcium 8.3 L Phosphorus Magnesium AST Alkaline Phosphatase C-Reactive Protein Total Protein Albumin Lipase Vitamin B12 TSH Urine WBC (Auto) Urine Chloride Urine Total Protein Vancomycin Trough Crossmatch 10/20/16 10/20/16 10/20/16 11:49 13:59 17:56 WBC RBC Hgb Hct MCV RDW Plt Count Lymph % (Auto) [place] % (Auto) [place] # Seg Neutrophils % Seg Neuts % (Manual) Lymphocytes % (Manual) Monocytes % (Manual) Basophils % (Manual) Nucleated RBC % Seg Neutrophils # Seg Neutrophils # Man Lymphocytes # (Manual) Monocytes # (Manual) Eosinophils # (Manual) Basophils # (Manual) PT INR APTT Heparin Anti-Xa Level 2.00 H POC ABG pH POC ABG pCO2 POC ABG pO2 Sodium Potassium Chloride Carbon Dioxide BUN Creatinine Glucose POC Glucose 305 H 362 H Calcium Phosphorus Magnesium AST Alkaline Phosphatase C-Reactive Protein Total Protein Albumin Lipase Vitamin B12 TSH Urine WBC (Auto) Urine Chloride Urine Total Protein Vancomycin Trough Crossmatch 10/20/16 10/21/16 10/21/16 23:52 05:00 05:49 WBC 22.9 H RBC 2.49 L Hgb 7.7 L Hct 25.6 L MCV 103 H RDW Plt Count Lymph % (Auto) [place] % (Auto) [place] # Seg Neutrophils % Seg Neuts % (Manual) 94.0 H Lymphocytes % (Manual) 1.0 L Monocytes % (Manual) Basophils % (Manual) Nucleated RBC % Seg Neutrophils # Seg Neutrophils # Man 21.5 H Lymphocytes # (Manual) 0.2 L Monocytes # (Manual) 1.1 H Eosinophils # (Manual) Basophils # (Manual) PT INR APTT Heparin Anti-Xa Level POC ABG pH POC ABG pCO2 POC ABG pO2 Sodium Potassium Chloride Carbon Dioxide BUN Creatinine Glucose POC Glucose 252 H 180 H Calcium Phosphorus Magnesium AST Alkaline Phosphatase C-Reactive Protein Total Protein Albumin Lipase Vitamin B12 TSH Urine WBC (Auto) Urine Chloride Urine Total Protein Vancomycin Trough Crossmatch 10/21/16 10/21/16 10/21/16 11:47 11:49 14:10 WBC RBC Hgb Hct MCV RDW Plt Count Lymph % (Auto) [place] % (Auto) [place] # Seg Neutrophils % Seg Neuts % (Manual) Lymphocytes % (Manual) Monocytes % (Manual) Basophils % (Manual) Nucleated RBC % Seg Neutrophils # Seg Neutrophils # Man Lymphocytes # (Manual) Monocytes # (Manual) Eosinophils # (Manual) Basophils # (Manual) PT INR APTT Heparin Anti-Xa Level POC ABG pH POC ABG pCO2 POC ABG pO2 Sodium Potassium Chloride Carbon Dioxide BUN Creatinine Glucose POC Glucose 50 L 56 L 140 H Calcium Phosphorus Magnesium AST Alkaline Phosphatase C-Reactive Protein Total Protein Albumin Lipase Vitamin B12 TSH Urine WBC (Auto) Urine Chloride Urine Total Protein Vancomycin Trough Crossmatch 10/21/16 10/21/16 10/22/16 18:24 Unknown 00:07 WBC RBC Hgb Hct MCV RDW Plt Count Lymph % (Auto) [place] % (Auto) [place] # Seg Neutrophils % Seg Neuts % (Manual) Lymphocytes % (Manual) Monocytes % (Manual) Basophils % (Manual) Nucleated RBC % Seg Neutrophils # Seg Neutrophils # Man Lymphocytes # (Manual) Monocytes # (Manual) Eosinophils # (Manual) Basophils # (Manual) PT INR APTT Heparin Anti-Xa Level POC ABG pH POC ABG pCO2 POC ABG pO2 Sodium 150 H Potassium 3.1 L Chloride 112.4 H Carbon Dioxide BUN 25 H Creatinine 1.4 H Glucose POC Glucose 175 H 218 H Calcium 8.0 L Phosphorus Magnesium AST Alkaline Phosphatase C-Reactive Protein Total Protein Albumin Lipase Vitamin B12 TSH Urine WBC (Auto) Urine Chloride Urine Total Protein Vancomycin Trough Crossmatch 10/22/16 10/22/16 10/22/16 04:20 04:20 10:25 WBC 20.8 H RBC 2.37 L Hgb 7.5 L Hct 23.9 L MCV 101 H RDW Plt Count Lymph % (Auto) [place] % (Auto) [place] # Seg Neutrophils % Seg Neuts % (Manual) 89.0 H Lymphocytes % (Manual) 7.0 L Monocytes % (Manual) Basophils % (Manual) Nucleated RBC % Seg Neutrophils # Seg Neutrophils # Man 18.5 H Lymphocytes # (Manual) Monocytes # (Manual) Eosinophils # (Manual) Basophils # (Manual) 0.2 H PT INR APTT Heparin Anti-Xa Level POC ABG pH POC ABG pCO2 POC ABG pO2 Sodium 148 H Potassium 2.9 L* Chloride 109.4 H Carbon Dioxide BUN 26 H Creatinine Glucose 140 H POC Glucose Calcium 7.5 L Phosphorus Magnesium AST Alkaline Phosphatase C-Reactive Protein Total Protein Albumin Lipase Vitamin B12 976.8 H TSH Urine WBC (Auto) Urine Chloride Urine Total Protein Vancomycin Trough Crossmatch 10/22/16 10/22/16 10/22/16 10:25 14:50 18:16 WBC RBC Hgb Hct MCV RDW Plt Count Lymph % (Auto) [place] % (Auto) [place] # Seg Neutrophils % Seg Neuts % (Manual) Lymphocytes % (Manual) Monocytes % (Manual) Basophils % (Manual) Nucleated RBC % Seg Neutrophils # Seg Neutrophils # Man Lymphocytes # (Manual) Monocytes # (Manual) Eosinophils # (Manual) Basophils # (Manual) PT INR APTT Heparin Anti-Xa Level POC ABG pH POC ABG pCO2 POC ABG pO2 Sodium Potassium Chloride Carbon Dioxide BUN Creatinine Glucose POC Glucose 193 H Calcium Phosphorus Magnesium AST Alkaline Phosphatase C-Reactive Protein Total Protein Albumin Lipase Vitamin B12 TSH 0.143 L 0.162 L Urine WBC (Auto) Urine Chloride Urine Total Protein Vancomycin Trough Crossmatch 10/22/16 10/22/16 10/22/16 20:00 20:00 20:00 WBC 24.1 H RBC 2.58 L Hgb 8.2 L Hct 26.4 L MCV 102 H RDW Plt Count Lymph % (Auto) [place] % (Auto) [place] # Seg Neutrophils % Seg Neuts % (Manual) 74.0 H Lymphocytes % (Manual) 7.0 L Monocytes % (Manual) Basophils % (Manual) Nucleated RBC % Seg Neutrophils # Seg Neutrophils # Man 17.8 H Lymphocytes # (Manual) Monocytes # (Manual) Eosinophils # (Manual) Basophils # (Manual) PT INR APTT Heparin Anti-Xa Level 1.92 H POC ABG pH POC ABG pCO2 POC ABG pO2 Sodium Potassium Chloride Carbon Dioxide BUN Creatinine Glucose POC Glucose Calcium Phosphorus Magnesium AST Alkaline Phosphatase C-Reactive Protein Total Protein Albumin Lipase Vitamin B12 TSH Urine WBC (Auto) Urine Chloride Urine Total Protein Vancomycin Trough Crossmatch See Detail 10/23/16 10/23/16 10/23/16 00:21 06:09 12:07 WBC RBC Hgb Hct MCV RDW Plt Count Lymph % (Auto) [place] % (Auto) [place] # Seg Neutrophils % Seg Neuts % (Manual) Lymphocytes % (Manual) Monocytes % (Manual) Basophils % (Manual) Nucleated RBC % Seg Neutrophils # Seg Neutrophils # Man Lymphocytes # (Manual) Monocytes # (Manual) Eosinophils # (Manual) Basophils # (Manual) PT INR APTT Heparin Anti-Xa Level POC ABG pH POC ABG pCO2 POC ABG pO2 Sodium Potassium Chloride Carbon Dioxide BUN Creatinine Glucose POC Glucose 283 H 241 H 340 H Calcium Phosphorus Magnesium AST Alkaline Phosphatase C-Reactive Protein Total Protein Albumin Lipase Vitamin B12 TSH Urine WBC (Auto) Urine Chloride Urine Total Protein Vancomycin Trough Crossmatch 10/23/16 10/23/16 10/23/16 14:01 16:00 17:59 WBC RBC Hgb Hct MCV RDW Plt Count Lymph % (Auto) [place] % (Auto) [place] # Seg Neutrophils % Seg Neuts % (Manual) Lymphocytes % (Manual) Monocytes % (Manual) Basophils % (Manual) Nucleated RBC % Seg Neutrophils # Seg Neutrophils # Man Lymphocytes # (Manual) Monocytes # (Manual) Eosinophils # (Manual) Basophils # (Manual) PT INR APTT Heparin Anti-Xa Level 0.19 L POC ABG pH POC ABG pCO2 32.4 L POC ABG pO2 Sodium Potassium Chloride Carbon Dioxide BUN Creatinine Glucose POC Glucose 245 H Calcium Phosphorus Magnesium AST Alkaline Phosphatase C-Reactive Protein Total Protein Albumin Lipase Vitamin B12 TSH Urine WBC (Auto) Urine Chloride Urine Total Protein Vancomycin Trough Crossmatch 10/23/16 10/23/16 10/23/16 22:55 Unknown Unknown WBC 22.6 H RBC 3.26 L Hgb Hct MCV RDW 17.1 H Plt Count Lymph % (Auto) [place] % (Auto) [place] # Seg Neutrophils % Seg Neuts % (Manual) Lymphocytes % (Manual) 11.0 L Monocytes % (Manual) Basophils % (Manual) Nucleated RBC % Seg Neutrophils # Seg Neutrophils # Man 14.0 H Lymphocytes # (Manual) Monocytes # (Manual) Eosinophils # (Manual) Basophils # (Manual) PT INR APTT Heparin Anti-Xa Level 0.17 L 0.15 L POC ABG pH POC ABG pCO2 POC ABG pO2 Sodium Potassium Chloride Carbon Dioxide BUN Creatinine Glucose POC Glucose Calcium Phosphorus Magnesium AST Alkaline Phosphatase C-Reactive Protein Total Protein Albumin Lipase Vitamin B12 TSH Urine WBC (Auto) Urine Chloride Urine Total Protein Vancomycin Trough Crossmatch 10/23/16 10/24/16 10/24/16 Unknown 00:05 05:30 WBC RBC Hgb Hct MCV RDW Plt Count Lymph % (Auto) [place] % (Auto) [place] # Seg Neutrophils % Seg Neuts % (Manual) Lymphocytes % (Manual) Monocytes % (Manual) Basophils % (Manual) Nucleated RBC % Seg Neutrophils # Seg Neutrophils # Man Lymphocytes # (Manual) Monocytes # (Manual) Eosinophils # (Manual) Basophils # (Manual) PT INR APTT Heparin Anti-Xa Level 0.13 L POC ABG pH POC ABG pCO2 POC ABG pO2 Sodium Potassium Chloride 111.2 H Carbon Dioxide 20 L BUN 25 H Creatinine Glucose 227 H POC Glucose 118 H Calcium 7.1 L Phosphorus Magnesium AST Alkaline Phosphatase C-Reactive Protein Total Protein Albumin Lipase Vitamin B12 TSH Urine WBC (Auto) Urine Chloride Urine Total Protein Vancomycin Trough Crossmatch 10/24/16 10/24/16 10/24/16 11:00 11:00 12:06 WBC 17.6 H RBC 2.92 L Hgb 9.2 L Hct 28.3 L MCV RDW 16.9 H Plt Count Lymph % (Auto) [place] % (Auto) [place] # Seg Neutrophils % Seg Neuts % (Manual) Lymphocytes % (Manual) Monocytes % (Manual) Basophils % (Manual) Nucleated RBC % Seg Neutrophils # Seg Neutrophils # Man Lymphocytes # (Manual) Monocytes # (Manual) Eosinophils # (Manual) Basophils # (Manual) PT INR APTT Heparin Anti-Xa Level 0.27 L POC ABG pH POC ABG pCO2 POC ABG pO2 Sodium Potassium Chloride Carbon Dioxide BUN Creatinine Glucose POC Glucose 166 H Calcium Phosphorus Magnesium AST Alkaline Phosphatase C-Reactive Protein Total Protein Albumin Lipase Vitamin B12 TSH Urine WBC (Auto) Urine Chloride Urine Total Protein Vancomycin Trough Crossmatch 10/24/16 10/25/16 10/25/16 12:27 00:49 03:30 WBC RBC Hgb 8.8 L Hct 28.1 L MCV RDW Plt Count Lymph % (Auto) [place] % (Auto) [place] # Seg Neutrophils % Seg Neuts % (Manual) Lymphocytes % (Manual) Monocytes % (Manual) Basophils % (Manual) Nucleated RBC % Seg Neutrophils # Seg Neutrophils # Man Lymphocytes # (Manual) Monocytes # (Manual) Eosinophils # (Manual) Basophils # (Manual) PT INR APTT Heparin Anti-Xa Level POC ABG pH POC ABG pCO2 33.9 L POC ABG pO2 Sodium Potassium Chloride Carbon Dioxide BUN Creatinine Glucose POC Glucose 121 H Calcium Phosphorus Magnesium AST Alkaline Phosphatase C-Reactive Protein Total Protein Albumin Lipase Vitamin B12 TSH Urine WBC (Auto) Urine Chloride Urine Total Protein Vancomycin Trough Crossmatch 10/25/16 10/25/16 10/25/16 09:49 12:10 19:25 WBC 21.1 H RBC 3.02 L Hgb 9.3 L Hct 28.9 L MCV RDW 16.3 H Plt Count Lymph % (Auto) [place] % (Auto) [place] # Seg Neutrophils % Seg Neuts % (Manual) 81.0 H Lymphocytes % (Manual) 9.0 L Monocytes % (Manual) Basophils % (Manual) Nucleated RBC % Seg Neutrophils # Seg Neutrophils # Man 17.1 H Lymphocytes # (Manual) Monocytes # (Manual) Eosinophils # (Manual) Basophils # (Manual) PT INR APTT Heparin Anti-Xa Level POC ABG pH POC ABG pCO2 POC ABG pO2 Sodium Potassium Chloride Carbon Dioxide BUN Creatinine Glucose POC Glucose 158 H 151 H Calcium Phosphorus Magnesium AST Alkaline Phosphatase C-Reactive Protein Total Protein Albumin Lipase Vitamin B12 TSH Urine WBC (Auto) Urine Chloride Urine Total Protein Vancomycin Trough Crossmatch 10/26/16 10/26/16 10/26/16 00:20 01:09 05:02 WBC 22.2 H RBC 2.89 L Hgb 8.7 L Hct 27.8 L MCV RDW 16.4 H Plt Count Lymph % (Auto) [place] % (Auto) [place] # Seg Neutrophils % Seg Neuts % (Manual) Lymphocytes % (Manual) Monocytes % (Manual) Basophils % (Manual) Nucleated RBC % Seg Neutrophils # Seg Neutrophils # Man Lymphocytes # (Manual) Monocytes # (Manual) Eosinophils # (Manual) Basophils # (Manual) PT INR APTT Heparin Anti-Xa Level POC ABG pH POC ABG pCO2 POC ABG pO2 Sodium Potassium Chloride Carbon Dioxide BUN Creatinine Glucose POC Glucose 44 L 112 H Calcium Phosphorus Magnesium AST Alkaline Phosphatase C-Reactive Protein Total Protein Albumin Lipase Vitamin B12 TSH Urine WBC (Auto) Urine Chloride Urine Total Protein Vancomycin Trough Crossmatch 10/26/16 10/26/16 10/26/16 05:02 12:11 12:14 WBC RBC Hgb Hct MCV RDW Plt Count Lymph % (Auto) [place] % (Auto) [place] # Seg Neutrophils % Seg Neuts % (Manual) Lymphocytes % (Manual) Monocytes % (Manual) Basophils % (Manual) Nucleated RBC % Seg Neutrophils # Seg Neutrophils # Man Lymphocytes # (Manual) Monocytes # (Manual) Eosinophils # (Manual) Basophils # (Manual) PT INR APTT Heparin Anti-Xa Level POC ABG pH POC ABG pCO2 32.0 L POC ABG pO2 33 L Sodium Potassium 3.2 L D Chloride Carbon Dioxide 20 L BUN 24 H Creatinine Glucose 104 H POC Glucose 194 H Calcium 7.7 L Phosphorus Magnesium AST Alkaline Phosphatase C-Reactive Protein Total Protein Albumin Lipase Vitamin B12 TSH Urine WBC (Auto) Urine Chloride Urine Total Protein Vancomycin Trough Crossmatch 10/26/16 10/26/16 10/27/16 15:28 17:23 00:04 WBC RBC Hgb Hct MCV RDW Plt Count Lymph % (Auto) [place] % (Auto) [place] # Seg Neutrophils % Seg Neuts % (Manual) Lymphocytes % (Manual) Monocytes % (Manual) Basophils % (Manual) Nucleated RBC % Seg Neutrophils # Seg Neutrophils # Man Lymphocytes # (Manual) Monocytes # (Manual) Eosinophils # (Manual) Basophils # (Manual) PT INR APTT Heparin Anti-Xa Level POC ABG pH POC ABG pCO2 33.7 L POC ABG pO2 Sodium Potassium Chloride Carbon Dioxide BUN Creatinine Glucose POC Glucose 181 H 230 H Calcium Phosphorus Magnesium AST Alkaline Phosphatase C-Reactive Protein Total Protein Albumin Lipase Vitamin B12 TSH Urine WBC (Auto) Urine Chloride Urine Total Protein Vancomycin Trough Crossmatch 10/27/16 10/27/16 10/27/16 05:15 05:15 05:38 WBC 25.5 H RBC 3.07 L Hgb 9.4 L Hct 30.1 L MCV 98 H RDW 16.4 H Plt Count 527 H Lymph % (Auto) [place] % (Auto) [place] # Seg Neutrophils % Seg Neuts % (Manual) Lymphocytes % (Manual) Monocytes % (Manual) Basophils % (Manual) Nucleated RBC % Seg Neutrophils # Seg Neutrophils # Man Lymphocytes # (Manual) Monocytes # (Manual) Eosinophils # (Manual) Basophils # (Manual) PT INR APTT Heparin Anti-Xa Level POC ABG pH POC ABG pCO2 POC ABG pO2 Sodium Potassium Chloride Carbon Dioxide 19 L BUN 23 H Creatinine Glucose 160 H POC Glucose 168 H Calcium 8.0 L Phosphorus Magnesium AST Alkaline Phosphatase C-Reactive Protein Total Protein Albumin Lipase Vitamin B12 TSH Urine WBC (Auto) Urine Chloride Urine Total Protein Vancomycin Trough Crossmatch 10/27/16 10/27/16 10/27/16 11:59 18:35 23:48 WBC RBC Hgb Hct MCV RDW Plt Count Lymph % (Auto) [place] % (Auto) [place] # Seg Neutrophils % Seg Neuts % (Manual) Lymphocytes % (Manual) Monocytes % (Manual) Basophils % (Manual) Nucleated RBC % Seg Neutrophils # Seg Neutrophils # Man Lymphocytes # (Manual) Monocytes # (Manual) Eosinophils # (Manual) Basophils # (Manual) PT INR APTT Heparin Anti-Xa Level POC ABG pH POC ABG pCO2 POC ABG pO2 Sodium Potassium Chloride Carbon Dioxide BUN Creatinine Glucose POC Glucose 197 H 318 H 316 H Calcium Phosphorus Magnesium AST Alkaline Phosphatase C-Reactive Protein Total Protein Albumin Lipase Vitamin B12 TSH Urine WBC (Auto) Urine Chloride Urine Total Protein Vancomycin Trough Crossmatch 10/28/16 10/28/16 10/28/16 03:13 04:10 04:10 WBC 18.8 H RBC 2.64 L Hgb 8.1 L Hct 26.1 L MCV 99 H RDW 16.2 H Plt Count 544 H Lymph % (Auto) [place] % (Auto) [place] # Seg Neutrophils % Seg Neuts % (Manual) Lymphocytes % (Manual) Monocytes % (Manual) Basophils % (Manual) Nucleated RBC % Seg Neutrophils # Seg Neutrophils # Man Lymphocytes # (Manual) Monocytes # (Manual) Eosinophils # (Manual) Basophils # (Manual) PT INR APTT Heparin Anti-Xa Level POC ABG pH POC ABG pCO2 POC ABG pO2 Sodium Potassium Chloride Carbon Dioxide 21 L BUN 24 H Creatinine Glucose 302 H POC Glucose 304 H Calcium 7.7 L Phosphorus Magnesium AST Alkaline Phosphatase C-Reactive Protein Total Protein Albumin Lipase Vitamin B12 TSH Urine WBC (Auto) Urine Chloride Urine Total Protein Vancomycin Trough Crossmatch 10/28/16 10/28/16 10/28/16 04:10 12:36 18:27 WBC RBC Hgb Hct MCV RDW Plt Count Lymph % (Auto) [place] % (Auto) [place] # Seg Neutrophils % Seg Neuts % (Manual) Lymphocytes % (Manual) Monocytes % (Manual) Basophils % (Manual) Nucleated RBC % Seg Neutrophils # Seg Neutrophils # Man Lymphocytes # (Manual) Monocytes # (Manual) Eosinophils # (Manual) Basophils # (Manual) PT INR APTT Heparin Anti-Xa Level 0.20 L POC ABG pH POC ABG pCO2 POC ABG pO2 Sodium Potassium Chloride Carbon Dioxide BUN Creatinine Glucose POC Glucose 205 H 339 H Calcium Phosphorus Magnesium AST Alkaline Phosphatase C-Reactive Protein Total Protein Albumin Lipase Vitamin B12 TSH Urine WBC (Auto) Urine Chloride Urine Total Protein Vancomycin Trough Crossmatch 10/29/16 10/29/16 10/29/16 01:05 06:19 09:30 WBC 20.3 H RBC 2.80 L Hgb 8.5 L Hct 26.7 L MCV RDW 15.4 H Plt Count 571 H Lymph % (Auto) [place] % (Auto) [place] # Seg Neutrophils % Seg Neuts % (Manual) 75.0 H Lymphocytes % (Manual) 4.0 L Monocytes % (Manual) Basophils % (Manual) Nucleated RBC % Seg Neutrophils # Seg Neutrophils # Man 15.2 H Lymphocytes # (Manual) 0.8 L Monocytes # (Manual) Eosinophils # (Manual) Basophils # (Manual) PT INR APTT Heparin Anti-Xa Level POC ABG pH POC ABG pCO2 POC ABG pO2 Sodium Potassium Chloride Carbon Dioxide BUN Creatinine Glucose POC Glucose 275 H 179 H Calcium Phosphorus Magnesium AST Alkaline Phosphatase C-Reactive Protein Total Protein Albumin Lipase Vitamin B12 TSH Urine WBC (Auto) Urine Chloride Urine Total Protein Vancomycin Trough Crossmatch 10/29/16 10/29/16 10/29/16 11:46 15:18 17:55 WBC RBC Hgb Hct MCV RDW Plt Count Lymph % (Auto) [place] % (Auto) [place] # Seg Neutrophils % Seg Neuts % (Manual) Lymphocytes % (Manual) Monocytes % (Manual) Basophils % (Manual) Nucleated RBC % Seg Neutrophils # Seg Neutrophils # Man Lymphocytes # (Manual) Monocytes # (Manual) Eosinophils # (Manual) Basophils # (Manual) PT INR APTT Heparin Anti-Xa Level 1.15 H POC ABG pH POC ABG pCO2 POC ABG pO2 Sodium Potassium Chloride Carbon Dioxide BUN Creatinine Glucose POC Glucose 122 H 255 H Calcium Phosphorus Magnesium AST Alkaline Phosphatase C-Reactive Protein Total Protein Albumin Lipase Vitamin B12 TSH Urine WBC (Auto) Urine Chloride Urine Total Protein Vancomycin Trough Crossmatch 10/30/16 10/30/16 10/30/16 00:10 05:30 05:30 WBC 19.8 H RBC 2.51 L Hgb 7.7 L Hct 24.1 L MCV RDW 15.5 H Plt Count 534 H Lymph % (Auto) [place] % (Auto) [place] # Seg Neutrophils % Seg Neuts % (Manual) Lymphocytes % (Manual) Monocytes % (Manual) Basophils % (Manual) Nucleated RBC % Seg Neutrophils # Seg Neutrophils # Man Lymphocytes # (Manual) Monocytes # (Manual) Eosinophils # (Manual) Basophils # (Manual) PT INR APTT Heparin Anti-Xa Level POC ABG pH POC ABG pCO2 POC ABG pO2 Sodium Potassium Chloride Carbon Dioxide BUN Creatinine Glucose 211 H POC Glucose 202 H Calcium 7.4 L Phosphorus Magnesium AST Alkaline Phosphatase C-Reactive Protein Total Protein Albumin Lipase Vitamin B12 TSH Urine WBC (Auto) Urine Chloride Urine Total Protein Vancomycin Trough Crossmatch 10/30/16 10/30/16 10/30/16 06:32 12:51 17:47 WBC RBC Hgb Hct MCV RDW Plt Count Lymph % (Auto) [place] % (Auto) [place] # Seg Neutrophils % Seg Neuts % (Manual) Lymphocytes % (Manual) Monocytes % (Manual) Basophils % (Manual) Nucleated RBC % Seg Neutrophils # Seg Neutrophils # Man Lymphocytes # (Manual) Monocytes # (Manual) Eosinophils # (Manual) Basophils # (Manual) PT INR APTT Heparin Anti-Xa Level POC ABG pH POC ABG pCO2 POC ABG pO2 Sodium Potassium Chloride Carbon Dioxide BUN Creatinine Glucose POC Glucose 207 H 218 H 169 H Calcium Phosphorus Magnesium AST Alkaline Phosphatase C-Reactive Protein Total Protein Albumin Lipase Vitamin B12 TSH Urine WBC (Auto) Urine Chloride Urine Total Protein Vancomycin Trough Crossmatch 10/30/16 10/31/16 10/31/16 23:59 05:25 11:21 WBC RBC Hgb Hct MCV RDW Plt Count Lymph % (Auto) [place] % (Auto) [place] # Seg Neutrophils % Seg Neuts % (Manual) Lymphocytes % (Manual) Monocytes % (Manual) Basophils % (Manual) Nucleated RBC % Seg Neutrophils # Seg Neutrophils # Man Lymphocytes # (Manual) Monocytes # (Manual) Eosinophils # (Manual) Basophils # (Manual) PT INR APTT Heparin Anti-Xa Level POC ABG pH POC ABG pCO2 POC ABG pO2 Sodium Potassium Chloride Carbon Dioxide BUN Creatinine Glucose POC Glucose 138 H 127 H 132 H Calcium Phosphorus Magnesium AST Alkaline Phosphatase C-Reactive Protein Total Protein Albumin Lipase Vitamin B12 TSH Urine WBC (Auto) Urine Chloride Urine Total Protein Vancomycin Trough Crossmatch 10/31/16 10/31/16 11/01/16 17:07 23:54 05:47 WBC RBC Hgb Hct MCV RDW Plt Count Lymph % (Auto) [place] % (Auto) [place] # Seg Neutrophils % Seg Neuts % (Manual) Lymphocytes % (Manual) Monocytes % (Manual) Basophils % (Manual) Nucleated RBC % Seg Neutrophils # Seg Neutrophils # Man Lymphocytes # (Manual) Monocytes # (Manual) Eosinophils # (Manual) Basophils # (Manual) PT INR APTT Heparin Anti-Xa Level POC ABG pH POC ABG pCO2 POC ABG pO2 Sodium Potassium Chloride Carbon Dioxide BUN Creatinine Glucose POC Glucose 138 H 153 H 150 H Calcium Phosphorus Magnesium AST Alkaline Phosphatase C-Reactive Protein Total Protein Albumin Lipase Vitamin B12 TSH Urine WBC (Auto) Urine Chloride Urine Total Protein Vancomycin Trough Crossmatch 11/01/16 11/01/16 11/01/16 06:33 06:33 12:16 WBC 19.2 H RBC 2.51 L Hgb 7.9 L Hct 24.8 L MCV 99 H D RDW 16.1 H Plt Count 569 H Lymph % (Auto) [place] % (Auto) [place] # Seg Neutrophils % Seg Neuts % (Manual) Lymphocytes % (Manual) Monocytes % (Manual) Basophils % (Manual) Nucleated RBC % Seg Neutrophils # Seg Neutrophils # Man Lymphocytes # (Manual) Monocytes # (Manual) Eosinophils # (Manual) Basophils # (Manual) PT INR APTT Heparin Anti-Xa Level POC ABG pH POC ABG pCO2 POC ABG pO2 Sodium Potassium 3.5 L Chloride Carbon Dioxide 21 L BUN Creatinine Glucose 137 H POC Glucose 125 H Calcium 7.7 L Phosphorus Magnesium AST Alkaline Phosphatase 148 H C-Reactive Protein Total Protein 6.2 L Albumin 2.0 L Lipase Vitamin B12 TSH Urine WBC (Auto) Urine Chloride Urine Total Protein Vancomycin Trough Crossmatch 11/01/16 11/02/16 11/02/16 17:37 00:05 04:15 WBC RBC Hgb Hct MCV RDW Plt Count Lymph % (Auto) [place] % (Auto) [place] # Seg Neutrophils % Seg Neuts % (Manual) Lymphocytes % (Manual) Monocytes % (Manual) Basophils % (Manual) Nucleated RBC % Seg Neutrophils # Seg Neutrophils # Man Lymphocytes # (Manual) Monocytes # (Manual) Eosinophils # (Manual) Basophils # (Manual) PT INR APTT Heparin Anti-Xa Level < 0.10 L POC ABG pH POC ABG pCO2 POC ABG pO2 Sodium Potassium 3.2 L Chloride Carbon Dioxide BUN 6 L Creatinine Glucose 135 H POC Glucose 164 H Calcium 7.5 L Phosphorus Magnesium AST Alkaline Phosphatase 132 H C-Reactive Protein Total Protein 6.2 L Albumin 1.8 L Lipase Vitamin B12 TSH Urine WBC (Auto) Urine Chloride Urine Total Protein Vancomycin Trough Crossmatch 11/02/16 11/02/16 11/02/16 04:15 05:54 12:15 WBC 17.7 H RBC 2.43 L Hgb 7.6 L Hct 23.5 L MCV RDW 15.9 H Plt Count 502 H Lymph % (Auto) [place] % (Auto) [place] # Seg Neutrophils % Seg Neuts % (Manual) 84.0 H Lymphocytes % (Manual) 11.0 L Monocytes % (Manual) Basophils % (Manual) Nucleated RBC % 1.0 H Seg Neutrophils # Seg Neutrophils # Man 14.9 H Lymphocytes # (Manual) Monocytes # (Manual) Eosinophils # (Manual) Basophils # (Manual) PT INR APTT Heparin Anti-Xa Level POC ABG pH POC ABG pCO2 POC ABG pO2 Sodium Potassium Chloride Carbon Dioxide BUN Creatinine Glucose POC Glucose 152 H 137 H Calcium Phosphorus Magnesium AST Alkaline Phosphatase C-Reactive Protein Total Protein Albumin Lipase Vitamin B12 TSH Urine WBC (Auto) Urine Chloride Urine Total Protein Vancomycin Trough Crossmatch 11/02/16 11/03/16 11/03/16 17:00 00:05 00:05 WBC RBC Hgb Hct MCV RDW Plt Count Lymph % (Auto) [place] % (Auto) [place] # Seg Neutrophils % Seg Neuts % (Manual) Lymphocytes % (Manual) Monocytes % (Manual) Basophils % (Manual) Nucleated RBC % Seg Neutrophils # Seg Neutrophils # Man Lymphocytes # (Manual) Monocytes # (Manual) Eosinophils # (Manual) Basophils # (Manual) PT INR APTT Heparin Anti-Xa Level POC ABG pH POC ABG pCO2 POC ABG pO2 Sodium Potassium Chloride Carbon Dioxide 20 L BUN 5 L Creatinine Glucose 139 H POC Glucose 161 H Calcium 6.7 L Phosphorus Magnesium 1.2 L AST Alkaline Phosphatase C-Reactive Protein Total Protein Albumin Lipase Vitamin B12 TSH Urine WBC (Auto) Urine Chloride Urine Total Protein Vancomycin Trough Crossmatch 11/03/16 11/03/16 11/03/16 00:05 02:05 04:23 WBC 15.9 H 14.0 H RBC 1.93 L 2.38 L Hgb 5.9 L* 7.3 L Hct 18.9 L* 23.1 L MCV 98 H RDW 15.9 H 15.9 H Plt Count Lymph % (Auto) [place] % (Auto) [place] # Seg Neutrophils % Seg Neuts % (Manual) 85.0 H Lymphocytes % (Manual) 4.0 L Monocytes % (Manual) Basophils % (Manual) Nucleated RBC % Seg Neutrophils # Seg Neutrophils # Man 13.5 H Lymphocytes # (Manual) 0.6 L Monocytes # (Manual) Eosinophils # (Manual) Basophils # (Manual) PT INR APTT Heparin Anti-Xa Level POC ABG pH POC ABG pCO2 POC ABG pO2 Sodium Potassium Chloride Carbon Dioxide BUN 5 L Creatinine Glucose 127 H POC Glucose Calcium 7.2 L Phosphorus Magnesium AST Alkaline Phosphatase C-Reactive Protein Total Protein 5.8 L Albumin 1.5 L Lipase Vitamin B12 TSH Urine WBC (Auto) Urine Chloride Urine Total Protein Vancomycin Trough Crossmatch 11/03/16 11/03/16 11/03/16 09:14 09:27 11:54 WBC RBC Hgb Hct MCV RDW Plt Count Lymph % (Auto) [place] % (Auto) [place] # Seg Neutrophils % Seg Neuts % (Manual) Lymphocytes % (Manual) Monocytes % (Manual) Basophils % (Manual) Nucleated RBC % Seg Neutrophils # Seg Neutrophils # Man Lymphocytes # (Manual) Monocytes # (Manual) Eosinophils # (Manual) Basophils # (Manual) PT INR APTT Heparin Anti-Xa Level 0.11 L POC ABG pH POC ABG pCO2 POC ABG pO2 Sodium Potassium Chloride Carbon Dioxide BUN 5 L Creatinine Glucose 111 H POC Glucose 139 H Calcium 6.7 L Phosphorus Magnesium AST Alkaline Phosphatase C-Reactive Protein Total Protein Albumin Lipase Vitamin B12 TSH Urine WBC (Auto) Urine Chloride Urine Total Protein Vancomycin Trough Crossmatch 11/03/16 11/03/16 11/03/16 16:26 18:01 18:01 WBC RBC Hgb Hct MCV RDW Plt Count Lymph % (Auto) [place] % (Auto) [place] # Seg Neutrophils % Seg Neuts % (Manual) Lymphocytes % (Manual) Monocytes % (Manual) Basophils % (Manual) Nucleated RBC % Seg Neutrophils # Seg Neutrophils # Man Lymphocytes # (Manual) Monocytes # (Manual) Eosinophils # (Manual) Basophils # (Manual) PT INR APTT Heparin Anti-Xa Level 2.00 H POC ABG pH POC ABG pCO2 POC ABG pO2 Sodium Potassium Chloride Carbon Dioxide BUN Creatinine Glucose POC Glucose 142 H Calcium Phosphorus Magnesium AST Alkaline Phosphatase C-Reactive Protein Total Protein Albumin Lipase Vitamin B12 TSH Urine WBC (Auto) Urine Chloride Urine Total Protein Vancomycin Trough Crossmatch See Detail 11/04/16 11/04/16 11/04/16 02:15 02:15 06:35 WBC 11.8 H RBC 2.39 L Hgb 7.4 L Hct 23.1 L MCV RDW 15.9 H Plt Count Lymph % (Auto) [place] % (Auto) [place] # Seg Neutrophils % Seg Neuts % (Manual) 76.0 H Lymphocytes % (Manual) 12.0 L Monocytes % (Manual) 9.0 H Basophils % (Manual) Nucleated RBC % Seg Neutrophils # Seg Neutrophils # Man 9.0 H Lymphocytes # (Manual) Monocytes # (Manual) 1.1 H Eosinophils # (Manual) Basophils # (Manual) PT INR APTT Heparin Anti-Xa Level < 0.10 L POC ABG pH POC ABG pCO2 POC ABG pO2 Sodium Potassium Chloride Carbon Dioxide 21 L BUN 5 L Creatinine Glucose 112 H POC Glucose Calcium 6.8 L Phosphorus Magnesium AST Alkaline Phosphatase C-Reactive Protein Total Protein 5.7 L Albumin 1.7 L Lipase Vitamin B12 TSH Urine WBC (Auto) Urine Chloride Urine Total Protein Vancomycin Trough Crossmatch 11/04/16 11/04/16 11/04/16 10:51 12:58 15:04 WBC RBC Hgb Hct MCV RDW Plt Count Lymph % (Auto) [place] % (Auto) [place] # Seg Neutrophils % Seg Neuts % (Manual) Lymphocytes % (Manual) Monocytes % (Manual) Basophils % (Manual) Nucleated RBC % Seg Neutrophils # Seg Neutrophils # Man Lymphocytes # (Manual) Monocytes # (Manual) Eosinophils # (Manual) Basophils # (Manual) PT INR APTT Heparin Anti-Xa Level 1.05 H POC ABG pH POC ABG pCO2 33.7 L POC ABG pO2 60 L Sodium Potassium Chloride Carbon Dioxide BUN Creatinine Glucose POC Glucose 118 H Calcium Phosphorus Magnesium AST Alkaline Phosphatase C-Reactive Protein Total Protein Albumin Lipase Vitamin B12 TSH Urine WBC (Auto) Urine Chloride Urine Total Protein Vancomycin Trough Crossmatch 11/04/16 11/04/16 11/05/16 17:20 20:31 02:30 WBC RBC Hgb Hct MCV RDW Plt Count Lymph % (Auto) [place] % (Auto) [place] # Seg Neutrophils % Seg Neuts % (Manual) Lymphocytes % (Manual) Monocytes % (Manual) Basophils % (Manual) Nucleated RBC % Seg Neutrophils # Seg Neutrophils # Man Lymphocytes # (Manual) Monocytes # (Manual) Eosinophils # (Manual) Basophils # (Manual) PT INR APTT Heparin Anti-Xa Level POC ABG pH POC ABG pCO2 POC ABG pO2 Sodium Potassium 3.5 L Chloride Carbon Dioxide 18 L BUN 5 L Creatinine 0.6 L Glucose 110 H POC Glucose 228 H 169 H Calcium 7.1 L Phosphorus Magnesium AST Alkaline Phosphatase C-Reactive Protein Total Protein Albumin 1.9 L Lipase Vitamin B12 TSH Urine WBC (Auto) Urine Chloride Urine Total Protein Vancomycin Trough Crossmatch 11/05/16 11/05/16 11/05/16 02:30 17:52 21:07 WBC 14.1 H RBC Hgb Hct MCV RDW 16.7 H Plt Count Lymph % (Auto) [place] % (Auto) [place] # Seg Neutrophils % Seg Neuts % (Manual) 80.0 H Lymphocytes % (Manual) 6.0 L Monocytes % (Manual) 8.0 H Basophils % (Manual) Nucleated RBC % Seg Neutrophils # Seg Neutrophils # Man 11.3 H Lymphocytes # (Manual) 0.8 L Monocytes # (Manual) 1.1 H Eosinophils # (Manual) Basophils # (Manual) PT INR APTT Heparin Anti-Xa Level < 0.10 L POC ABG pH POC ABG pCO2 POC ABG pO2 Sodium Potassium Chloride Carbon Dioxide BUN Creatinine Glucose POC Glucose 174 H Calcium Phosphorus Magnesium AST Alkaline Phosphatase C-Reactive Protein Total Protein Albumin Lipase Vitamin B12 TSH Urine WBC (Auto) Urine Chloride Urine Total Protein Vancomycin Trough Crossmatch 11/05/16 11/06/16 11/06/16 23:30 05:00 05:00 WBC 15.2 H RBC 3.29 L Hgb 10.0 L Hct MCV RDW 16.9 H Plt Count Lymph % (Auto) [place] % (Auto) [place] # Seg Neutrophils % Seg Neuts % (Manual) Lymphocytes % (Manual) Monocytes % (Manual) Basophils % (Manual) Nucleated RBC % Seg Neutrophils # Seg Neutrophils # Man Lymphocytes # (Manual) Monocytes # (Manual) Eosinophils # (Manual) Basophils # (Manual) PT INR APTT Heparin Anti-Xa Level 0.94 H POC ABG pH POC ABG pCO2 POC ABG pO2 Sodium Potassium Chloride Carbon Dioxide BUN Creatinine Glucose POC Glucose 131 H Calcium Phosphorus Magnesium AST Alkaline Phosphatase C-Reactive Protein Total Protein Albumin Lipase Vitamin B12 TSH Urine WBC (Auto) Urine Chloride Urine Total Protein Vancomycin Trough Crossmatch 11/06/16 11/06/16 11/06/16 05:00 11:45 18:23 WBC RBC Hgb Hct MCV RDW Plt Count Lymph % (Auto) [place] % (Auto) [place] # Seg Neutrophils % Seg Neuts % (Manual) Lymphocytes % (Manual) Monocytes % (Manual) Basophils % (Manual) Nucleated RBC % Seg Neutrophils # Seg Neutrophils # Man Lymphocytes # (Manual) Monocytes # (Manual) Eosinophils # (Manual) Basophils # (Manual) PT INR APTT Heparin Anti-Xa Level POC ABG pH POC ABG pCO2 POC ABG pO2 Sodium Potassium 3.5 L Chloride 107.1 H Carbon Dioxide 20 L BUN 4 L Creatinine 0.6 L Glucose 104 H POC Glucose 141 H 255 H Calcium 6.7 L Phosphorus Magnesium AST Alkaline Phosphatase C-Reactive Protein Total Protein Albumin Lipase Vitamin B12 TSH Urine WBC (Auto) Urine Chloride Urine Total Protein Vancomycin Trough Crossmatch 11/06/16 11/06/16 11/07/16 22:07 23:07 11:41 WBC RBC Hgb Hct MCV RDW Plt Count Lymph % (Auto) [place] % (Auto) [place] # Seg Neutrophils % Seg Neuts % (Manual) Lymphocytes % (Manual) Monocytes % (Manual) Basophils % (Manual) Nucleated RBC % Seg Neutrophils # Seg Neutrophils # Man Lymphocytes # (Manual) Monocytes # (Manual) Eosinophils # (Manual) Basophils # (Manual) PT INR APTT Heparin Anti-Xa Level 0.80 H POC ABG pH POC ABG pCO2 POC ABG pO2 Sodium Potassium Chloride Carbon Dioxide BUN Creatinine Glucose POC Glucose 183 H 132 H Calcium Phosphorus Magnesium AST Alkaline Phosphatase C-Reactive Protein Total Protein Albumin Lipase Vitamin B12 TSH Urine WBC (Auto) Urine Chloride Urine Total Protein Vancomycin Trough Crossmatch 11/07/16 11/07/16 11/07/16 12:17 17:05 17:58 WBC RBC Hgb Hct MCV RDW Plt Count Lymph % (Auto) [place] % (Auto) [place] # Seg Neutrophils % Seg Neuts % (Manual) Lymphocytes % (Manual) Monocytes % (Manual) Basophils % (Manual) Nucleated RBC % Seg Neutrophils # Seg Neutrophils # Man Lymphocytes # (Manual) Monocytes # (Manual) Eosinophils # (Manual) Basophils # (Manual) PT INR APTT Heparin Anti-Xa Level 0.87 H POC ABG pH 7.324 L POC ABG pCO2 POC ABG pO2 Sodium Potassium Chloride Carbon Dioxide BUN Creatinine Glucose POC Glucose 158 H Calcium Phosphorus Magnesium AST Alkaline Phosphatase C-Reactive Protein Total Protein Albumin Lipase Vitamin B12 TSH Urine WBC (Auto) Urine Chloride Urine Total Protein Vancomycin Trough Crossmatch 11/07/16 11/07/16 11/07/16 23:26 Unknown Unknown WBC 12.3 H RBC 2.96 L Hgb 9.1 L Hct 27.9 L MCV RDW 16.8 H Plt Count Lymph % (Auto) [place] % (Auto) [place] # Seg Neutrophils % Seg Neuts % (Manual) 80.0 H Lymphocytes % (Manual) 7.0 L Monocytes % (Manual) Basophils % (Manual) Nucleated RBC % Seg Neutrophils # Seg Neutrophils # Man 9.8 H Lymphocytes # (Manual) 0.9 L Monocytes # (Manual) Eosinophils # (Manual) Basophils # (Manual) PT INR APTT Heparin Anti-Xa Level POC ABG pH POC ABG pCO2 POC ABG pO2 Sodium Potassium Chloride Carbon Dioxide 19 L BUN Creatinine Glucose 106 H POC Glucose 130 H Calcium 6.9 L Phosphorus Magnesium AST Alkaline Phosphatase C-Reactive Protein Total Protein Albumin Lipase Vitamin B12 TSH Urine WBC (Auto) Urine Chloride Urine Total Protein Vancomycin Trough Crossmatch 11/07/16 11/08/16 11/08/16 Unknown 05:14 05:20 WBC 12.4 H RBC 3.04 L Hgb 9.2 L Hct 28.8 L MCV RDW 16.6 H Plt Count Lymph % (Auto) [place] % (Auto) [place] # Seg Neutrophils % Seg Neuts % (Manual) 77.0 H Lymphocytes % (Manual) 5.0 L Monocytes % (Manual) Basophils % (Manual) 2.0 H Nucleated RBC % Seg Neutrophils # Seg Neutrophils # Man 9.5 H Lymphocytes # (Manual) 0.6 L Monocytes # (Manual) Eosinophils # (Manual) Basophils # (Manual) 0.2 H PT INR APTT Heparin Anti-Xa Level 0.90 H POC ABG pH POC ABG pCO2 POC ABG pO2 Sodium Potassium Chloride Carbon Dioxide BUN Creatinine Glucose POC Glucose 204 H Calcium Phosphorus Magnesium AST Alkaline Phosphatase C-Reactive Protein Total Protein Albumin Lipase Vitamin B12 TSH Urine WBC (Auto) Urine Chloride Urine Total Protein Vancomycin Trough Crossmatch 11/08/16 11/08/16 11/08/16 05:20 12:10 13:10 WBC RBC Hgb Hct MCV RDW Plt Count Lymph % (Auto) [place] % (Auto) [place] # Seg Neutrophils % Seg Neuts % (Manual) Lymphocytes % (Manual) Monocytes % (Manual) Basophils % (Manual) Nucleated RBC % Seg Neutrophils # Seg Neutrophils # Man Lymphocytes # (Manual) Monocytes # (Manual) Eosinophils # (Manual) Basophils # (Manual) PT INR APTT Heparin Anti-Xa Level POC ABG pH POC ABG pCO2 33.7 L POC ABG pO2 Sodium 136 L Potassium Chloride Carbon Dioxide 19 L BUN Creatinine Glucose 192 H POC Glucose 180 H Calcium 7.1 L Phosphorus Magnesium AST Alkaline Phosphatase C-Reactive Protein Total Protein Albumin Lipase Vitamin B12 TSH Urine WBC (Auto) Urine Chloride Urine Total Protein Vancomycin Trough Crossmatch 11/08/16 11/08/16 11/08/16 17:26 20:45 23:34 WBC RBC Hgb Hct MCV RDW Plt Count Lymph % (Auto) [place] % (Auto) [place] # Seg Neutrophils % Seg Neuts % (Manual) Lymphocytes % (Manual) Monocytes % (Manual) Basophils % (Manual) Nucleated RBC % Seg Neutrophils # Seg Neutrophils # Man Lymphocytes # (Manual) Monocytes # (Manual) Eosinophils # (Manual) Basophils # (Manual) PT INR APTT Heparin Anti-Xa Level POC ABG pH POC ABG pCO2 POC ABG pO2 Sodium Potassium Chloride Carbon Dioxide BUN Creatinine Glucose POC Glucose 187 H 178 H Calcium Phosphorus Magnesium AST Alkaline Phosphatase C-Reactive Protein Total Protein Albumin Lipase Vitamin B12 TSH Urine WBC (Auto) Urine Chloride Urine Total Protein Vancomycin Trough 35.4 H Crossmatch 11/09/16 11/09/16 11/09/16 05:30 05:30 05:59 WBC 11.5 H RBC 2.96 L Hgb 9.2 L Hct 28.2 L MCV RDW 16.4 H Plt Count Lymph % (Auto) [place] % (Auto) [place] # Seg Neutrophils % Seg Neuts % (Manual) 76.0 H Lymphocytes % (Manual) 2.0 L Monocytes % (Manual) Basophils % (Manual) Nucleated RBC % Seg Neutrophils # Seg Neutrophils # Man 8.7 H Lymphocytes # (Manual) 0.2 L Monocytes # (Manual) Eosinophils # (Manual) Basophils # (Manual) PT INR APTT Heparin Anti-Xa Level POC ABG pH POC ABG pCO2 POC ABG pO2 Sodium Potassium 3.4 L Chloride 107.6 H Carbon Dioxide 19 L BUN Creatinine 0.6 L Glucose 207 H POC Glucose 263 H Calcium 7.3 L Phosphorus Magnesium AST Alkaline Phosphatase C-Reactive Protein Total Protein Albumin Lipase Vitamin B12 TSH Urine WBC (Auto) Urine Chloride Urine Total Protein Vancomycin Trough Crossmatch 11/09/16 11/09/16 11/09/16 11:49 15:24 18:04 WBC RBC Hgb Hct MCV RDW Plt Count Lymph % (Auto) [place] % (Auto) [place] # Seg Neutrophils % Seg Neuts % (Manual) Lymphocytes % (Manual) Monocytes % (Manual) Basophils % (Manual) Nucleated RBC % Seg Neutrophils # Seg Neutrophils # Man Lymphocytes # (Manual) Monocytes # (Manual) Eosinophils # (Manual) Basophils # (Manual) PT INR APTT Heparin Anti-Xa Level POC ABG pH POC ABG pCO2 33.8 L POC ABG pO2 131 H Sodium Potassium Chloride Carbon Dioxide BUN Creatinine Glucose POC Glucose 269 H 242 H Calcium Phosphorus Magnesium AST Alkaline Phosphatase C-Reactive Protein Total Protein Albumin Lipase Vitamin B12 TSH Urine WBC (Auto) Urine Chloride Urine Total Protein Vancomycin Trough Crossmatch 11/09/16 11/10/16 11/10/16 22:57 04:30 04:30 WBC 15.7 H RBC 3.17 L Hgb 9.7 L Hct 30.2 L MCV RDW 16.2 H Plt Count Lymph % (Auto) [place] % (Auto) [place] # Seg Neutrophils % Seg Neuts % (Manual) Lymphocytes % (Manual) Monocytes % (Manual) Basophils % (Manual) Nucleated RBC % Seg Neutrophils # Seg Neutrophils # Man 8.5 H Lymphocytes # (Manual) Monocytes # (Manual) Eosinophils # (Manual) 0.5 H Basophils # (Manual) PT INR APTT Heparin Anti-Xa Level POC ABG pH POC ABG pCO2 POC ABG pO2 Sodium Potassium Chloride Carbon Dioxide 19 L BUN Creatinine 0.6 L Glucose 199 H POC Glucose 239 H Calcium 7.8 L Phosphorus Magnesium AST Alkaline Phosphatase C-Reactive Protein Total Protein Albumin Lipase Vitamin B12 TSH Urine WBC (Auto) Urine Chloride Urine Total Protein Vancomycin Trough Crossmatch 11/10/16 11/10/16 11/10/16 04:30 11:32 16:00 WBC RBC Hgb Hct MCV RDW Plt Count Lymph % (Auto) [place] % (Auto) [place] # Seg Neutrophils % Seg Neuts % (Manual) Lymphocytes % (Manual) Monocytes % (Manual) Basophils % (Manual) Nucleated RBC % Seg Neutrophils # Seg Neutrophils # Man Lymphocytes # (Manual) Monocytes # (Manual) Eosinophils # (Manual) Basophils # (Manual) PT INR APTT Heparin Anti-Xa Level 1.09 H < 0.10 L POC ABG pH POC ABG pCO2 POC ABG pO2 Sodium Potassium Chloride Carbon Dioxide BUN Creatinine Glucose POC Glucose 211 H Calcium Phosphorus Magnesium AST Alkaline Phosphatase C-Reactive Protein Total Protein Albumin Lipase Vitamin B12 TSH Urine WBC (Auto) Urine Chloride Urine Total Protein Vancomycin Trough Crossmatch 11/10/16 11/10/16 11/10/16 17:39 18:00 23:06 WBC RBC Hgb Hct MCV RDW Plt Count Lymph % (Auto) [place] % (Auto) [place] # Seg Neutrophils % Seg Neuts % (Manual) Lymphocytes % (Manual) Monocytes % (Manual) Basophils % (Manual) Nucleated RBC % Seg Neutrophils # Seg Neutrophils # Man Lymphocytes # (Manual) Monocytes # (Manual) Eosinophils # (Manual) Basophils # (Manual) PT INR APTT Heparin Anti-Xa Level 0.85 H POC ABG pH POC ABG pCO2 POC ABG pO2 Sodium Potassium Chloride Carbon Dioxide BUN Creatinine Glucose POC Glucose 249 H 220 H Calcium Phosphorus Magnesium AST Alkaline Phosphatase C-Reactive Protein Total Protein Albumin Lipase Vitamin B12 TSH Urine WBC (Auto) Urine Chloride Urine Total Protein Vancomycin Trough Crossmatch 11/11/16 11/11/16 11/11/16 05:56 06:15 06:15 WBC 13.3 H RBC 2.87 L Hgb 8.7 L Hct 27.2 L MCV RDW 16.4 H Plt Count Lymph % (Auto) [place] % (Auto) [place] # 0.9 H Seg Neutrophils % 78.9 H Seg Neuts % (Manual) Lymphocytes % (Manual) Monocytes % (Manual) Basophils % (Manual) Nucleated RBC % Seg Neutrophils # 10.5 H Seg Neutrophils # Man Lymphocytes # (Manual) Monocytes # (Manual) Eosinophils # (Manual) Basophils # (Manual) PT INR APTT Heparin Anti-Xa Level POC ABG pH POC ABG pCO2 POC ABG pO2 Sodium Potassium 3.2 L Chloride Carbon Dioxide 19 L BUN Creatinine Glucose POC Glucose 117 H Calcium 7.6 L Phosphorus Magnesium AST Alkaline Phosphatase C-Reactive Protein Total Protein Albumin Lipase Vitamin B12 TSH Urine WBC (Auto) Urine Chloride Urine Total Protein Vancomycin Trough Crossmatch 11/11/16 11/11/16 11/11/16 12:26 16:58 17:33 WBC RBC Hgb Hct MCV RDW Plt Count Lymph % (Auto) [place] % (Auto) [place] # Seg Neutrophils % Seg Neuts % (Manual) Lymphocytes % (Manual) Monocytes % (Manual) Basophils % (Manual) Nucleated RBC % Seg Neutrophils # Seg Neutrophils # Man Lymphocytes # (Manual) Monocytes # (Manual) Eosinophils # (Manual) Basophils # (Manual) PT INR APTT Heparin Anti-Xa Level < 0.10 L POC ABG pH POC ABG pCO2 POC ABG pO2 Sodium Potassium Chloride Carbon Dioxide BUN Creatinine Glucose POC Glucose 114 H 161 H Calcium Phosphorus Magnesium AST Alkaline Phosphatase C-Reactive Protein Total Protein Albumin Lipase Vitamin B12 TSH Urine WBC (Auto) Urine Chloride Urine Total Protein Vancomycin Trough Crossmatch 11/12/16 11/12/16 11/12/16 05:00 05:00 05:00 WBC 12.8 H RBC 2.75 L Hgb 8.4 L Hct 25.7 L MCV RDW 16.3 H Plt Count Lymph % (Auto) [place] % (Auto) 7.5 H [place] # 1.0 H Seg Neutrophils % 78.0 H Seg Neuts % (Manual) Lymphocytes % (Manual) Monocytes % (Manual) Basophils % (Manual) Nucleated RBC % Seg Neutrophils # 10.0 H Seg Neutrophils # Man Lymphocytes # (Manual) Monocytes # (Manual) Eosinophils # (Manual) Basophils # (Manual) PT INR APTT Heparin Anti-Xa Level 0.87 H POC ABG pH POC ABG pCO2 POC ABG pO2 Sodium Potassium 3.4 L Chloride Carbon Dioxide 19 L BUN Creatinine Glucose 112 H POC Glucose Calcium 7.7 L Phosphorus Magnesium AST Alkaline Phosphatase C-Reactive Protein Total Protein Albumin Lipase Vitamin B12 TSH Urine WBC (Auto) Urine Chloride Urine Total Protein Vancomycin Trough Crossmatch 11/12/16 11/12/16 11/13/16 11:18 16:40 00:44 WBC RBC Hgb Hct MCV RDW Plt Count Lymph % (Auto) [place] % (Auto) [place] # Seg Neutrophils % Seg Neuts % (Manual) Lymphocytes % (Manual) Monocytes % (Manual) Basophils % (Manual) Nucleated RBC % Seg Neutrophils # Seg Neutrophils # Man Lymphocytes # (Manual) Monocytes # (Manual) Eosinophils # (Manual) Basophils # (Manual) PT INR APTT Heparin Anti-Xa Level POC ABG pH POC ABG pCO2 POC ABG pO2 Sodium Potassium Chloride Carbon Dioxide BUN Creatinine Glucose POC Glucose 135 H 139 H 169 H Calcium Phosphorus Magnesium AST Alkaline Phosphatase C-Reactive Protein Total Protein Albumin Lipase Vitamin B12 TSH Urine WBC (Auto) Urine Chloride Urine Total Protein Vancomycin Trough Crossmatch 11/13/16 11/13/16 11/13/16 05:28 05:28 06:02 WBC 12.7 H RBC 2.93 L Hgb 9.0 L Hct 27.6 L MCV RDW 16.1 H Plt Count Lymph % (Auto) [place] % (Auto) [place] # Seg Neutrophils % 78.6 H Seg Neuts % (Manual) Lymphocytes % (Manual) Monocytes % (Manual) Basophils % (Manual) Nucleated RBC % Seg Neutrophils # 10.0 H Seg Neutrophils # Man Lymphocytes # (Manual) Monocytes # (Manual) Eosinophils # (Manual) Basophils # (Manual) PT INR APTT Heparin Anti-Xa Level POC ABG pH POC ABG pCO2 POC ABG pO2 Sodium Potassium Chloride Carbon Dioxide 17 L BUN Creatinine Glucose 116 H POC Glucose 112 H Calcium 7.8 L Phosphorus Magnesium AST Alkaline Phosphatase C-Reactive Protein Total Protein Albumin Lipase Vitamin B12 TSH Urine WBC (Auto) Urine Chloride Urine Total Protein Vancomycin Trough Crossmatch Allied health notes reviewed: RT
--- NOTE | 2016-11-13 11:19 | Progress Note ---
Assessment and Plan Increase metoprolol to 50mg Q6H. - Patient Problems (1) Sinus tachycardia Current Visit: Yes Status: Acute (2) Respiratory failure Current Visit: Yes Status: Chronic Qualifiers: Chronicity: C Respiratory failure complication: R (3) Sepsis Current Visit: Yes Status: Acute Qualifiers: Sepsis type: S (4) DVT (deep venous thrombosis) Current Visit: Yes Status: Acute Qualifiers: DVT location: D Affected thrombotic vein of extremity: A Laterality: L Chronicity: C (5) Anemia Current Visit: No Status: Acute Qualifiers: Anemia type: A Iron deficiency anemia type: I Vitamin B12 deficiency anemia type: V Folate deficiency anemia type: F Bone marrow failure anemia type: B Hemolytic anemia type: H Other causes of anemia: O (6) PVD (peripheral vascular disease) Current Visit: Yes Status: Chronic (7) Diabetes Current Visit: No Status: Chronic Qualifiers: Diabetes mellitus type: D Diabetes mellitus complication status: D Diabetes mellitus complication detail: D Diabetic retinopathy severity: D Proliferative retinopathy type: P Diabetes mellitus macular edema: D Diabetes mellitus long-term insulin use: D Laterality: L Chronic kidney disease stage: C Subjective Date of service: 11/13/16 Principal diagnosis: respiratory failure on mechanical ventilatory support, DKA Interval history: The patient is resting in bed. No new complaints. Sinus tach on the monitor. Objective Last Vital Signs Temp 99.5 F 11/13/16 08:00 Pulse 116 H 11/13/16 11:00 Resp 25 H 11/13/16 11:00 BP 139/78 11/13/16 11:00 Pulse Ox 97 11/13/16 11:00 - Physical Examination General: No Apparent Distress HEENT: Positive: Normocephaly, Mucus Membranes Moist Neck: Positive: neck supple, trachea midline, Other (trach) Cardiac: Positive: Reg Rate and Rhythm, S1/S2 Lungs: Positive: Rhonchi Neuro: Positive: Grossly Intact Abdomen: Positive: Soft Skin: Positive: Clear. 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) - Labs and Meds CBC 11/13/16 Range/Units 05:28 WBC 12.7 H (4.5-11.0) K/mm3 RBC 2.93 L (3.65-5.03) M/mm3 Hgb 9.0 L (10.1-14.3) gm/dl Hct 27.6 L (30.3-42.9) % Plt Count 380 (140-440) K/mm3 Lymph # 1.8 (1.2-5.4) K/mm3 [facility] # 0.8 (0.0-0.8) K/mm3 Eos # 0.1 (0.0-0.4) K/mm3 Baso # 0.0 (0.0-0.1) K/mm3 Comprehensive Metabolic Panel 11/13/16 Range/Units 05:28 Sodium 140 (137-145) mmol/L Potassium 3.6 (3.6-5.0) mmol/L Chloride 104.8 (98-107) mmol/L Carbon Dioxide 17 L (22-30) mmol/L BUN 8 (7-17) mg/dL Creatinine 0.8 (0.7-1.2) mg/dL Glucose 116 H (65-100) mg/dL Calcium 7.8 L (8.4-10.2) mg/dL - Imaging and Cardiology Echo: report reviewed (tds 10/24/2016 normal LV function with no significant regurgitations) - Telemetry EKG Rhythm: Sinus Tachycardia - Allied health notes Allied health notes reviewed: RT
[2016-11-13] MEDS: VANCOMYCIN VIAL 1,500 MG in NACL 0.9% 500 ML 500 ML IV SCH (11:55)
--- NOTE | 2016-11-13 12:01 | Progress Note ---
Assessment and Plan Assessment and plan: 1. Acute respiratory failure with hypercapnia. Vent supported. s/p Trach and PEG. Continue with bronchodilators and wean as tolerated. 2. Diabetes mellitus type II. DKA resolved. Continue Sliding scale insulin 3. Sepsis- Leukocytosis Improving Suspected due to UTI, urine has only grown Paula, sputum cultures grew group B strep, continue broad-spectrum antibiotics, infectious disease input appreciated 4. 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/right lower extremity gangrene. The patient is status post recent right below the knee amputation. Patient currently on heparin drip. 5. Hypokalemia: Supplement potassium as needed 6. Toxic metabolic encephalopathy. Continue supportive care. 7. Sinus Tachycardia. Physiologic secondary to sepsis. 8. Anemia. Multifactorial including sepsis. s/p transfusion of PRBCs. Continue to follow H&H. 9. RUE DVT. Patient currently on heparin drip. 10. Abdominal pain. KUB reveals gastric distention but otherwise normal. No evidence of obstruction. Continue NG tube to suction. CT scan of the abdomen and pelvis without contrast. History Interval history: No new issues overnight. Patient continues to have left-sided abdominal pain. Hospitalist Physical - Constitutional Vitals: Temp Pulse Resp BP Pulse Ox 99.5 F 110 H 25 H 147/69 97 11/13/16 08:00 11/13/16 11:56 11/13/16 11:00 11/13/16 11:56 11/13/16 11:00 General appearance: Present: no acute distress - EENT Eyes: Present: PERRL, EOM intact ENT: hearing intact, clear oral mucosa, dentition normal - Neck Neck: Present: supple, normal ROM - Respiratory Respiratory effort: normal Respiratory: bilateral: CTA - Cardiovascular Rhythm: regular Heart Sounds: Present: S1 & S2. Absent: gallop, rub - Extremities Extremities: no ischemia, No edema, Full ROM - Abdominal General gastrointestinal: soft, non-tender, non-distended, normal bowel sounds - Integumentary Integumentary: Present: clear, warm, dry - Neurologic Neurologic: CNII-XII intact, moves all extremities Results - Labs CBC & Chem 7: 11/13/16 05:28 11/13/16 05:28 Labs: Laboratory Last Values WBC 12.7 K/mm3 (4.5-11.0) H 11/13/16 05:28 RBC 2.93 M/mm3 (3.65-5.03) L 11/13/16 05:28 Hgb 9.0 gm/dl (10.1-14.3) L 11/13/16 05:28 Hct 27.6 % (30.3-42.9) L 11/13/16 05:28 MCV 94 fl (79-97) 11/13/16 05:28 MCH 31 pg (28-32) 11/13/16 05:28 MCHC 32 % (30-34) 11/13/16 05:28 RDW 16.1 % (13.2-15.2) H 11/13/16 05:28 Plt Count 380 K/mm3 (140-440) 11/13/16 05:28 Lymph % (Auto) 13.8 % (13.4-35.0) 11/13/16 05:28 [place] % (Auto) 6.4 % (0.0-7.3) 11/13/16 05:28 Eos % (Auto) 0.9 % (0.0-4.3) 11/13/16 05:28 Baso % (Auto) 0.3 % (0.0-1.8) 11/13/16 05:28 Lymph # 1.8 K/mm3 (1.2-5.4) 11/13/16 05:28 [place] # 0.8 K/mm3 (0.0-0.8) 11/13/16 05:28 Eos # 0.1 K/mm3 (0.0-0.4) 11/13/16 05:28 Baso # 0.0 K/mm3 (0.0-0.1) 11/13/16 05:28 Add Manual Diff Complete 11/10/16 04:30 Total Counted 100 11/10/16 04:30 Seg Neutrophils % 78.6 % (40.0-70.0) H 11/13/16 05:28 Seg Neuts % (Manual) 54.0 % (40.0-70.0) 11/10/16 04:30 Band Neutrophils % 13.0 % 11/10/16 04:30 Lymphocytes % (Manual) 15.0 % (13.4-35.0) 11/10/16 04:30 Reactive Lymphs % (Man) 1.0 % 11/10/16 04:30 Monocytes % (Manual) 3.0 % (0.0-7.3) 11/10/16 04:30 Eosinophils % (Manual) 3.0 % (0.0-4.3) 11/10/16 04:30 Basophils % (Manual) 0 % (0.0-1.8) 11/10/16 04:30 Metamyelocytes % 5.0 % 11/10/16 04:30 Myelocytes % 0 % 11/10/16 04:30 Promyelocytes % 6.0 % 11/10/16 04:30 Blast Cells % 0 % 11/10/16 04:30 Nucleated RBC % Not Reportable 11/10/16 04:30 Seg Neutrophils # 10.0 K/mm3 (1.8-7.7) H 11/13/16 05:28 Seg Neutrophils # Man 8.5 K/mm3 (1.8-7.7) H 11/10/16 04:30 Band Neutrophils # 2.0 K/mm3 11/10/16 04:30 Lymphocytes # (Manual) 2.4 K/mm3 (1.2-5.4) 11/10/16 04:30 Abs React Lymphs (Man) 0.2 K/mm3 11/10/16 04:30 Monocytes # (Manual) 0.5 K/mm3 (0.0-0.8) 11/10/16 04:30 Eosinophils # (Manual) 0.5 K/mm3 (0.0-0.4) H 11/10/16 04:30 Basophils # (Manual) 0.0 K/mm3 (0.0-0.1) 11/10/16 04:30 Metamyelocytes # 0.8 K/mm3 11/10/16 04:30 Myelocytes # 0.0 K/mm3 11/10/16 04:30 Promyelocytes # 0.9 K/mm3 11/10/16 04:30 Blast Cells # 0.0 K/mm3 11/10/16 04:30 Pathologist Review 10/29/16 09:30 WBC Morphology Not Reportable 11/10/16 04:30 Hypersegmented Neuts Not Reportable 11/10/16 04:30 Hyposegmented Neuts Not Reportable 11/10/16 04:30 Hypogranular Neuts Not Reportable 11/10/16 04:30 Hypersegmented Polys TNR 10/17/16 07:08 Smudge Cells Few 11/10/16 04:30 Toxic Granulation Not Reportable 11/10/16 04:30 Toxic Vacuolation Not Reportable 11/10/16 04:30 Dohle Bodies Not Reportable 11/10/16 04:30 Pelger-Huet Anomaly Not Reportable 11/10/16 04:30 [place] Rods Not Reportable 11/10/16 04:30 Platelet Estimate Appears normal 11/10/16 04:30 Clumped Platelets Not Reportable 11/10/16 04:30 Plt Clumps, EDTA Not Reportable 11/10/16 04:30 Large Platelets Not Reportable 11/10/16 04:30 Giant Platelets Not Reportable 11/10/16 04:30 Platelet Satelliting Not Reportable 11/10/16 04:30 Plt Morphology Comment Not Reportable 11/10/16 04:30 RBC Morphology Not Reportable 11/10/16 04:30 Dimorphic RBCs Not Reportable 11/10/16 04:30 Polychromasia Rare 11/10/16 04:30 Hypochromasia Not Reportable 11/10/16 04:30 Poikilocytosis Not Reportable 11/10/16 04:30 Basophilic Stippling TNR 10/17/16 07:08 Anisocytosis 1+ 11/10/16 04:30 Microcytosis Not Reportable 11/10/16 04:30 Macrocytosis Not Reportable 11/10/16 04:30 Spherocytes Not Reportable 11/10/16 04:30 Pappenheimer Bodies Not Reportable 11/10/16 04:30 Sickle Cells Not Reportable 11/10/16 04:30 Target Cells Not Reportable 11/10/16 04:30 Tear Drop Cells Not Reportable 11/10/16 04:30 Ovalocytes Few 11/10/16 04:30 Stomatocytes Few 11/03/16 00:05 Helmet Cells Not Reportable 11/10/16 04:30 Higgins-Goldthwaite Bodies Not Reportable 11/10/16 04:30 [place] Rings Not Reportable 11/10/16 04:30 Jeannette Cells Not Reportable 11/10/16 04:30 Bite Cells Not Reportable 11/10/16 04:30 Crenated Cell Not Reportable 11/10/16 04:30 Elliptocytes Not Reportable 11/10/16 04:30 Acanthocytes (Spur) Not Reportable 11/10/16 04:30 Rouleaux Not Reportable 11/10/16 04:30 Hemoglobin C Crystals Not Reportable 11/10/16 04:30 Schistocytes Not Reportable 11/10/16 04:30 Malaria parasites Not Reportable 11/10/16 04:30 David Bodies Not Reportable 11/10/16 04:30 Hem Pathologist Commnt No 11/10/16 04:30 PT 16.4 Sec. (12.2-14.9) H 10/17/16 16:07 INR 1.33 (0.87-1.13) H 10/17/16 16:07 APTT 38.8 Sec. (24.2-36.6) H 10/17/16 16:07 Heparin Anti-Xa Level 0.47 U.I./ml (0.3-0.7) 11/12/16 16:54 POC ABG pH 7.353 (7.35-7.45) 11/09/16 15:24 POC ABG pCO2 33.8 (35-45) L 11/09/16 15:24 POC ABG pO2 131 (80-105) H 11/09/16 15:24 POC ABG HCO3 18.8 11/09/16 15:24 POC ABG Total CO2 20 11/09/16 15:24 POC ABG O2 Sat 99 11/09/16 15:24 POC ABG Base Excess -7 11/09/16 15:24 VBG pH 7.020 (7.320-7.420) L* 10/13/16 04:22 FiO2 28 % 11/09/16 15:24 Sodium 140 mmol/L (137-145) 11/13/16 05:28 Potassium 3.6 mmol/L (3.6-5.0) 11/13/16 05:28 Chloride 104.8 mmol/L (98-107) 11/13/16 05:28 Carbon Dioxide 17 mmol/L (22-30) L 11/13/16 05:28 Anion Gap 22 mmol/L 11/13/16 05:28 BUN 8 mg/dL (7-17) 11/13/16 05:28 Creatinine 0.8 mg/dL (0.7-1.2) 11/13/16 05:28 Estimated GFR > 60 ml/min 11/13/16 05:28 BUN/Creatinine Ratio 10.00 % 11/13/16 05:28 Glucose 116 mg/dL (65-100) H 11/13/16 05:28 POC Glucose 112 (70-105) H 11/13/16 06:02 Osmolality 332 Mosm/kg 10/14/16 07:03 Lactic Acid 1.8 mmol/L (0.7-2.0) 10/14/16 07:03 Calcium 7.8 mg/dL (8.4-10.2) L 11/13/16 05:28 Phosphorus 2.7 mg/dL (2.5-4.5) D 10/21/16 Unknown Magnesium 1.2 mg/dL (1.7-2.3) L 11/03/16 00:05 Total Bilirubin 0.3 mg/dL (0.1-1.2) 11/05/16 02:30 AST 9 units/L (5-40) 11/05/16 02:30 ALT 11 units/L (7-56) 11/05/16 02:30 Alkaline Phosphatase 119 units/L (35-129) 11/05/16 02:30 Ammonia 35.0 umol/L (25-60) 10/13/16 05:40 Total Creatine Kinase 107 units/L (30-135) 10/13/16 04:22 CK-MB (CK-2) 3.1 ng/mL (0.0-4.0) 10/13/16 04:22 CK-MB (CK-2) Rel Index 2.8 (0-4) 10/13/16 04:22 Troponin T < 0.010 ng/mL (0.00-0.029) 10/14/16 18:55 C-Reactive Protein 10.50 mg/dL (0.00-1.30) H 10/13/16 16:14 Total Protein 6.7 g/dL (6.3-8.2) 11/05/16 02:30 Albumin 1.9 g/dL (3.9-5) L 11/05/16 02:30 Albumin/Globulin Ratio 0.4 % 11/05/16 02:30 Amylase 30 units/L (27-131) 11/10/16 04:30 Lipase 41 units/L (13-60) 11/10/16 04:30 Vitamin B12 976.8 pg/mL (211-911) H 10/22/16 10:25 TSH 0.162 mlU/mL (0.270-4.200) L 10/22/16 14:50 Free T4 0.77 ng/dL (0.76-1.46) 10/22/16 14:50 Urine Color Yellow (Yellow) 10/15/16 11:05 Urine Turbidity Cloudy (Clear) 10/15/16 11:05 Urine pH 5.0 (5.0-7.0) 10/15/16 11:05 Ur Specific [place] 1.009 (1.003-1.030) 10/15/16 11:05 Urine Protein 30 mg/dl mg/dL (Negative) 10/15/16 11:05 Urine Glucose (UA) 150 mg/dL (Negative) 10/15/16 11:05 Urine Ketones Neg mg/dL (Negative) 10/15/16 11:05 Urine Blood Lg (Negative) 10/15/16 11:05 Urine Nitrite Neg (Negative) 10/15/16 11:05 Urine Bilirubin Neg (Negative) 10/15/16 11:05 Urine Urobilinogen < 2.0 mg/dL (<2.0) 10/15/16 11:05 Ur Leukocyte Esterase Neg (Negative) 10/15/16 11:05 Urine WBC (Auto) 7.0 /HPF (0.0-6.0) H 10/15/16 11:05 Urine RBC (Auto) 7.0 /HPF (0.0-6.0) 10/15/16 11:05 U Epithel Cells (Auto) 1.0 /HPF (0-13.0) 10/15/16 11:05 Urine Mucus Few /HPF 10/15/16 11:05 Urine Yeast (Budding) 2+ /HPF 10/15/16 11:05 Urine Osmolality 487 Mosm/kg 10/13/16 Unknown Urine Creatinine < 4.2 mg/dL (0.1-20.0) 10/13/16 Unknown Protein/Creatinin Ratio 0.00 10/13/16 Unknown Urine Sodium 10 mEq/L 10/13/16 Unknown Urine Potassium 1.00 mEq/L 10/13/16 Unknown Urine Chloride 10.0 mEq/L (110-250) L 10/13/16 Unknown Urine Total Protein < 4 mg/dL (5-11.8) L 10/13/16 Unknown Vancomycin Trough 35.4 ug/mL (5.0-20.0) H 11/08/16 20:45 Random Vancomycin 19.4 ug/mL (0-40.0) 11/11/16 06:15 Ketones 107.3 mg/dL (0.2-2.8) H 10/13/16 04:22 Blood Type A POSITIVE 11/03/16 18:01 Antibody Screen Negative 11/03/16 18:01 Crossmatch See Detail 11/03/16 18:01
[2016-11-13] MEDS: HEPARIN/ 0.45% NACL-25,000 UNIT/500 ML 25,000 UNITS/500 ML BAG IV SCH (12:14)
--- NOTE | 2016-11-13 14:33 | XRay Report ---
PORTABLE CHEST INDICATION: Aspiration. COMPARISON: 11/07/2016 FINDINGS: Portable, frontal chest radiograph demonstrates much interval clearing of presumed congestive haziness and right lower lung infiltrate. Increased markings/mild opacities centrally may now remain as also subtle left retrocardiac opacity with left hemidiaphragm medially not as well seen. No large pleural effusions or CHF. Stable slight exaggerated cardiomediastinal silhouette, tracheostomy tube and right upper extremity PICC tip at the cavoatrial junction. New esophagogastric tube extending to the stomach. A G-tube may also be present. EKG leads. Thoracic spondylosis. CONCLUSION: 1. Improving hazy pulmonary opacities/infiltrates, now mild remaining centrally, as described. 2. New esophagogastric tube with various other stable iatrogenic changes, as described. Thank you for the opportunity to participate in this patient's care.
--- NOTE | 2016-11-13 15:37 | Progress Note ---
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 Suspect this is due to pressure. Discussed with the nursing staff to offload this pressure if possible. It is unclear at this point if her BKA will remain viable. If it continues to deteriorate then she would likely require conversion to an above- the-knee amputation. - Patient Problems (1) Ischemia of right lower extremity Current Visit: Yes Status: Acute (2) DKA (diabetic ketoacidoses) Current Visit: Yes Status: Acute Qualifiers: Diabetes mellitus type: D Diabetes mellitus complication detail: D (3) Acute on chronic renal failure Current Visit: Yes Status: Acute (4) Altered mental status Current Visit: Yes Status: Acute Qualifiers: Altered mental status type: A Coma depth: C Coma timing: C (5) Diabetes Current Visit: No Status: Chronic Qualifiers: Diabetes mellitus type: D Diabetes mellitus complication status: D Diabetes mellitus complication detail: D Diabetic retinopathy severity: D Proliferative retinopathy type: P Diabetes mellitus macular edema: D Diabetes mellitus joint terminal attack controller insulin use: D Laterality: L Chronic kidney disease stage: C (6) Dyslipidemia Current Visit: No Status: Chronic (7) Hypertension Current Visit: No Status: Chronic Qualifiers: Hypertension type: H Subjective Date of service: 11/13/16 Principal diagnosis: respiratory failure on mechanical ventilatory support, DKA Interval history: Patient is awake on mechanical ventilation by trach. She denies complaints of pain at present. Objective - Constitutional Vitals: Vital Signs - 12hr 11/13/16 11/13/16 11/13/16 03:52 04:01 05:00 Temperature 98.8 F Pulse Rate 102 H 109 H Respiratory 22 17 29 H Rate Respiratory Rate [Right Leg ] Blood Pressure 153/69 123/65 O2 Sat by Pulse 100 100 Oximetry O2 Sat by Pulse Oximetry [ Assessment] 11/13/16 11/13/16 11/13/16 05:01 05:51 06:00 Temperature Pulse Rate 100 H 109 H 111 H Respiratory 25 H 23 Rate Respiratory Rate [Right Leg ] Blood Pressure 123/65 153/79 O2 Sat by Pulse 100 99 97 Oximetry O2 Sat by Pulse Oximetry [ Assessment] 11/13/16 11/13/16 11/13/16 06:10 06:12 06:34 Temperature Pulse Rate 107 H Respiratory 24 26 H Rate Respiratory Rate [Right Leg ] Blood Pressure 160/78 O2 Sat by Pulse 100 Oximetry O2 Sat by Pulse Oximetry [ Assessment] 11/13/16 11/13/16 11/13/16 06:41 07:00 08:00 Temperature 99.5 F 99.5 F Pulse Rate 125 H 103 H Respiratory 23 15 24 Rate Respiratory Rate [Right Leg ] Blood Pressure 167/97 149/64 O2 Sat by Pulse 100 98 Oximetry O2 Sat by Pulse Oximetry [ Assessment] 11/13/16 11/13/16 11/13/16 08:05 08:18 08:24 Temperature Pulse Rate 113 H Respiratory 18 Rate Respiratory Rate [Right Leg ] Blood Pressure 149/64 O2 Sat by Pulse 99 Oximetry O2 Sat by Pulse 99 Oximetry [ Assessment] 11/13/16 11/13/16 11/13/16 09:00 09:58 10:00 Temperature Pulse Rate 110 H 110 H Respiratory 28 H 28 H 30 H Rate Respiratory 28 H Rate [Right Leg ] Blood Pressure 148/74 168/94 O2 Sat by Pulse 97 99 Oximetry O2 Sat by Pulse Oximetry [ Assessment] 11/13/16 11/13/16 11/13/16 10:03 11:00 11:56 Temperature Pulse Rate 117 H 116 H 110 H Respiratory 25 H Rate Respiratory Rate [Right Leg ] Blood Pressure 148/74 139/78 147/69 O2 Sat by Pulse 99 97 Oximetry O2 Sat by Pulse Oximetry [ Assessment] 11/13/16 11/13/16 11/13/16 12:00 13:00 14:00 Temperature 99.5 F Pulse Rate 105 H 103 H 145 H Respiratory 26 H 26 H 23 Rate Respiratory Rate [Right Leg ] Blood Pressure 139/75 141/76 150/94 O2 Sat by Pulse 100 100 Oximetry O2 Sat by Pulse Oximetry [ Assessment] 11/13/16 15:00 Temperature Pulse Rate 105 H Respiratory 31 H Rate Respiratory Rate [Right Leg ] Blood Pressure 157/104 O2 Sat by Pulse 97 Oximetry O2 Sat by Pulse Oximetry [ Assessment] General appearance: Present: no acute distress - EENT Eyes: EOM intact ENT: hearing intact - Respiratory Respiratory effort: other (on mechanical ventilation by trach) Extremities: abnormal (right below the knee amputation. Knee immobilizer removed. Alesha are in place. Her incision is intact. She appears to have some superficial skin slough along the incision. There appears to be some wound breakdown on the lateral aspect of her stump. ) - Psychiatric Psychiatric: appropriate mood/affect, intact judgment & insight, cooperative - Labs CBC & Chem 7: 11/13/16 05:28 11/13/16 05:28 Labs: Abnormal lab results 11/12/16 11/12/16 11/13/16 Range/Units 11:18 16:40 00:44 WBC (4.5-11.0) K/mm3 RBC (3.65-5.03) M/mm3 Hgb (10.1-14.3) gm/dl Hct (30.3-42.9) % RDW (13.2-15.2) % Seg Neutrophils % (40.0-70.0) % Seg Neutrophils # (1.8-7.7) K/mm3 Carbon Dioxide (22-30) mmol/L Glucose (65-100) mg/dL POC Glucose 135 H 139 H 169 H (70-105) Calcium (8.4-10.2) mg/dL 11/13/16 11/13/16 11/13/16 Range/Units 05:28 05:28 06:02 WBC 12.7 H (4.5-11.0) K/mm3 RBC 2.93 L (3.65-5.03) M/mm3 Hgb 9.0 L (10.1-14.3) gm/dl Hct 27.6 L (30.3-42.9) % RDW 16.1 H (13.2-15.2) % Seg Neutrophils % 78.6 H (40.0-70.0) % Seg Neutrophils # 10.0 H (1.8-7.7) K/mm3 Carbon Dioxide 17 L (22-30) mmol/L Glucose 116 H (65-100) mg/dL POC Glucose 112 H (70-105) Calcium 7.8 L (8.4-10.2) mg/dL
--- NOTE | 2016-11-13 16:48 | Cat Scan Report ---
FINAL REPORT PROCEDURE: CT ABDOMEN PELVIS WO CON TECHNIQUE: Computerized axial tomography of the abdomen and pelvis was performed without intravenous contrast. This study is performed without intravascular contrast material and its sensitivity for abdominal and pelvic pathology, including neoplasms, inflammation, abscess, free fluid, thrombosis, arterial dissection and infarction, is reduced compared with a contrast enhanced study. Limited oral contrast was given. HISTORY: abd pain COMPARISON: Noncontrast CT of the abdomen and pelvis 10/28/2016 FINDINGS: Visualized lower thorax: Bilateral pleural effusions have increased in size as has bibasilar atelectasis. Liver: Normal size and attenuation. Spleen: Normal size and attenuation. Gallbladder and biliary system: Cholecystectomy. No suggested biliary ductal obstruction. Pancreas: Minimal infiltration about the pancreatic head. Adrenals: Normal. Kidneys: Normal. GI tract: Mild sigmoid diverticulosis. Lymph nodes and mesentery: Normal. Vasculature: Normal. Bladder: Jones catheter in place. Reproductive organs: Hysterectomy. Peritoneum: New small ascites. Musculoskeletal structures: Degenerative changes at L4/L5 and L5/S1. Other: Percutaneous gastrostomy, NG tube, and rectal tube in place. Grossly stable anasarca. IMPRESSION: Intervally enlarged bilateral pleural effusions with worsened bibasilar airspace disease. New small ascites. Stable anasarca. Otherwise stable exam..
[2016-11-13 17:08] LABS: ISTAT Base Excess -8; ISTAT HCO3 15.9; ISTAT PCO2 22.9 (35-45); ISTAT PH 7.449 (7.35-7.45); ISTAT PO2 53 (80-105); ISTAT SO2 89; ISTAT TCO2 17
--- NOTE | 2016-11-13 18:06 | Progress Note ---
Subjective Date of service: 11/13/16 Principal diagnosis: respiratory failure on mechanical ventilatory support, DKA Interval history: No new issues Vital signs - Temp 98 CHEST - GOOD AIR ENTRY CVS - S1S2 ABD - BS_ LABS See lab section. ASSESSMENT 1. Sepsis 2. dka 3. resp failure 4. htn 5. clostridium difficile colitis 6. bilateral pneumonia 6. RIGHT LEG GANGRENE s/p amputation RECOMMENDATION 1. continue iv abx Objective - Constitutional Vitals: Vital Signs Temp Pulse Resp BP Pulse Ox 99.5 F 103 H 27 H 143/92 100 11/13/16 12:00 11/13/16 17:39 11/13/16 17:00 11/13/16 17:39 11/13/16 17:44 Temperature -Last 24 Hours Temperature 99.5 F Temperature 99.5 F Temperature 99.5 F Temperature 98.8 F Temperature 98.1 F Temperature 99.1 F Temperature 99.6 F Temperature 98.2 F - Labs CBC & Chem 7: 11/13/16 05:28 11/13/16 05:28 Labs: Abnormal lab results 11/12/16 11/12/16 11/13/16 Range/Units 11:18 16:40 00:44 WBC (4.5-11.0) K/mm3 RBC (3.65-5.03) M/mm3 Hgb (10.1-14.3) gm/dl Hct (30.3-42.9) % RDW (13.2-15.2) % Seg Neutrophils % (40.0-70.0) % Seg Neutrophils # (1.8-7.7) K/mm3 POC ABG pCO2 (35-45) POC ABG pO2 (80-105) Carbon Dioxide (22-30) mmol/L Glucose (65-100) mg/dL POC Glucose 135 H 139 H 169 H (70-105) Calcium (8.4-10.2) mg/dL 11/13/16 11/13/16 11/13/16 Range/Units 05:28 05:28 06:02 WBC 12.7 H (4.5-11.0) K/mm3 RBC 2.93 L (3.65-5.03) M/mm3 Hgb 9.0 L (10.1-14.3) gm/dl Hct 27.6 L (30.3-42.9) % RDW 16.1 H (13.2-15.2) % Seg Neutrophils % 78.6 H (40.0-70.0) % Seg Neutrophils # 10.0 H (1.8-7.7) K/mm3 POC ABG pCO2 (35-45) POC ABG pO2 (80-105) Carbon Dioxide 17 L (22-30) mmol/L Glucose 116 H (65-100) mg/dL POC Glucose 112 H (70-105) Calcium 7.8 L (8.4-10.2) mg/dL 11/13/16 11/13/16 Range/Units 16:55 17:00 WBC (4.5-11.0) K/mm3 RBC (3.65-5.03) M/mm3 Hgb (10.1-14.3) gm/dl Hct (30.3-42.9) % RDW (13.2-15.2) % Seg Neutrophils % (40.0-70.0) % Seg Neutrophils # (1.8-7.7) K/mm3 POC ABG pCO2 22.9 L (35-45) POC ABG pO2 53 L (80-105) Carbon Dioxide (22-30) mmol/L Glucose (65-100) mg/dL POC Glucose 122 H (70-105) Calcium (8.4-10.2) mg/dL
[2016-11-14] MEDS: LOPRESSOR FEEDTUBE SCH ×4 (00:46→18:59)
[2016-11-14] MEDS: REGLAN IV SCH ×4 (00:48→18:59)
[2016-11-14] MEDS: HEPARIN/ 0.45% NACL-25,000 UNIT/500 ML 25,000 UNITS/500 ML BAG IV SCH ×2 (03:35→19:17)
[2016-11-14 05:28] LABS: Hematocrit 28.9 % (30.3-42.9); Hemoglobin 9.3 gm/dl (10.1-14.3); Mean Corpuscular HGB Conc 32 % (30-34); Mean Corpuscular Hemoglobin 31 pg (28-32); Mean Corpuscular Volume 96 fl (79-97); Platelet Count 387 K/mm3 (140-440); Red Blood Count 3.01 M/mm3 (3.65-5.03); Red Cell Distribution Width 16.5 % (13.2-15.2); White Blood Count 11.7 K/mm3 (4.5-11.0)
[2016-11-14 05:53] LABS: Anion Gap 24 mmol/L; Blood Urea Nitrogen 7 mg/dL (7-17); Calcium 7.5 mg/dL (8.4-10.2); Carbon Dioxide 16 mmol/L (22-30); Chloride 103.3 mmol/L (98-107); Glucose 102 mg/dL (65-100); Potassium 3.9 mmol/L (3.6-5.0); Sodium 139 mmol/L (137-145)
[2016-11-14 06:33] LABS: Anisocytosis 1+; Basophils % (Manual) 0 % (0.0-1.8); Blastocytes % (Manual) 0 %; Diff Status Complete; Eosinophils % (Manual) 0 % (0.0-4.3); Platelet Estimate Consistent w Auto
[2016-11-14] MEDS: ZOFRAN IV PRN (10:27)
[2016-11-14] MEDS ORDERED: CATHFLO IV ONE (11:00)
--- NOTE | 2016-11-14 11:16 | Progress Note ---
Assessment and Plan - Patient Problems (1) Acute respiratory failure with hypercapnia Current Visit: Yes Status: Acute Plan to address problem: - continue aspiration precautions / VAP bundles - continue bronchodilators and pulmonary toilet - continue to wean oxygen to keep sats > 94% - CXR actually with improved infiltrates - continue daily bedside SBT's as tolerated - hopefully weans better once GI issues resolved (2) Altered mental status Current Visit: Yes Status: Acute Qualifiers: Altered mental status type: A Coma depth: C Coma timing: C Plan to address problem: - no active seizures - following clinically - seen by neurology and will follow their recommendations - no seizures on EEG - more appropriate clinically (3) LUCY (acute kidney injury) Current Visit: Yes Status: Acute Plan to address problem: - resolved - following I's & O's (4) DKA (diabetic ketoacidoses) Current Visit: Yes Status: Acute Qualifiers: Diabetes mellitus type: D Diabetes mellitus complication detail: D Plan to address problem: - resolved - continue SSI (5) Sepsis Current Visit: No Status: Acute Qualifiers: Sepsis type: S Plan to address problem: - continue anti-infectives per ID recs - follow clinically (improved) - trend lactate and CRP prn - improving numbers post amputation (6) Emesis Current Visit: Yes Status: Acute Qualifiers: Vomiting type: V Vomiting Intractability: V Nausea presence: N Plan to address problem: - increased reglan dose - reduce fentanyl dose and use other sedative (re: opiates and G.I. motility) - continue aspiration precautions - GI consulted (7) Discharge planning issues Current Visit: No Status: Acute Plan to address problem: ...hopefully weans well, tolerates t-piece and can soon transfer out of ICU ...for now remains critically ill on life sustaining treatments including MVS and at high risk for further deterioration including ...302' CCT Subjective Date of service: 11/14/16 Principal diagnosis: respiratory failure on mechanical ventilatory support, DKA Interval history: Seen and examined at bedside; 24 hour events reviewed; nursing and respiratory care staff consulted; no adverse overnight events reported to me; continues to be a difficult wean; + small volume emesis; denies any uncontrolled pain; no new issues otherwise Objective Vital Signs - 12hr 11/13/16 11/13/16 11/14/16 23:23 23:30 00:00 Temperature 99.8 F H Pulse Rate 98 H 99 H 97 H Pulse Rate [ 104 H From Monitor] Respiratory 21 25 H Rate Blood Pressure 132/63 126/57 O2 Sat by Pulse 100 100 Oximetry O2 Sat by Pulse Oximetry [ Assessment] 11/14/16 11/14/16 11/14/16 00:30 00:46 00:50 Temperature Pulse Rate 102 H 111 H 112 H Pulse Rate [ From Monitor] Respiratory 16 Rate Blood Pressure 133/51 133/51 133/51 O2 Sat by Pulse 100 100 Oximetry O2 Sat by Pulse 100 Oximetry [ Assessment] 11/14/16 11/14/16 11/14/16 01:00 01:30 02:00 Temperature Pulse Rate 120 H 114 H 135 H Pulse Rate [ From Monitor] Respiratory 28 H 29 H 33 H Rate Blood Pressure 133/51 142/73 142/73 O2 Sat by Pulse 100 100 99 Oximetry O2 Sat by Pulse Oximetry [ Assessment] 11/14/16 11/14/16 11/14/16 02:30 03:00 03:30 Temperature Pulse Rate 104 H 103 H 105 H Pulse Rate [ From Monitor] Respiratory 26 H 22 25 H Rate Blood Pressure 135/65 133/66 139/70 O2 Sat by Pulse 100 100 100 Oximetry O2 Sat by Pulse Oximetry [ Assessment] 11/14/16 11/14/16 11/14/16 04:00 04:30 04:46 Temperature 100.1 F H Pulse Rate 106 H 116 H 135 H Pulse Rate [ 119 H From Monitor] Respiratory 24 26 H 29 H Rate Blood Pressure 137/65 141/81 141/81 O2 Sat by Pulse 100 100 99 Oximetry O2 Sat by Pulse Oximetry [ Assessment] 11/14/16 11/14/16 11/14/16 05:00 05:15 05:30 Temperature Pulse Rate 127 H 112 H 121 H Pulse Rate [ From Monitor] Respiratory 24 27 H 27 H Rate Blood Pressure 147/78 149/93 O2 Sat by Pulse 99 100 99 Oximetry O2 Sat by Pulse Oximetry [ Assessment] 11/14/16 11/14/16 11/14/16 05:56 06:00 06:30 Temperature Pulse Rate 148 H 144 H 161 H Pulse Rate [ From Monitor] Respiratory 24 32 H Rate Blood Pressure 149/93 155/95 155/95 O2 Sat by Pulse 98 Oximetry O2 Sat by Pulse Oximetry [ Assessment] 11/14/16 11/14/16 11/14/16 07:00 07:30 08:00 Temperature 98.6 F Pulse Rate 148 H 144 H 141 H Pulse Rate [ From Monitor] Respiratory 25 H 27 H 26 H Rate Blood Pressure 166/101 145/86 146/84 O2 Sat by Pulse 99 98 99 Oximetry O2 Sat by Pulse Oximetry [ Assessment] 11/14/16 11/14/16 11/14/16 08:30 09:00 09:42 Temperature Pulse Rate 143 H 144 H 143 H Pulse Rate [ 140 H From Monitor] Respiratory 28 H 28 H Rate Blood Pressure 147/93 138/86 139/74 O2 Sat by Pulse 100 100 100 Oximetry O2 Sat by Pulse Oximetry [ Assessment] 11/14/16 09:47 Temperature Pulse Rate 144 H Pulse Rate [ From Monitor] Respiratory 30 H Rate Blood Pressure 139/74 O2 Sat by Pulse 100 Oximetry O2 Sat by Pulse Oximetry [ Assessment] Constitutional: no acute distress, other (sedate) Eyes: non-icteric ENT: oropharynx moist Neck: supple, no lymphadenopathy Effort: mildly labored Ascultation: Bilateral: diminished breath sounds, rales Cardiovascular: regular rate and rhythm, other (tachycardia) Gastrointestinal: normoactive bowel sounds, soft, non-tender, non-distended Integumentary: normal Extremities: no cyanosis, no edema, no ischemia or petechiae, other (s/p right BKA) Neurologic: non-focal exam (grossly), pupils equal and round, other (sedated) Psychiatric: other (sedated) CBC and BMP: 11/16/16 09:05 11/16/16 09:05 ABG, PT/INR, D-dimer: ABG POC ABG pH 7.449 (7.35-7.45) 11/13/16 17:00 POC ABG pCO2 22.9 (35-45) L 11/13/16 17:00 POC ABG pO2 53 (80-105) L 11/13/16 17:00 POC ABG HCO3 15.9 11/13/16 17:00 POC ABG Total CO2 17 11/13/16 17:00 POC ABG O2 Sat 89 11/13/16 17:00 PT/INR, D-dimer PT 16.4 Sec. (12.2-14.9) H 10/17/16 16:07 INR 1.33 (0.87-1.13) H 10/17/16 16:07 Abnormal lab findings: Abnormal Labs 10/13/16 10/13/16 10/13/16 06:38 06:38 07:23 WBC RBC Hgb Hct MCV RDW Plt Count Lymph % (Auto) [place] % (Auto) [place] # Seg Neutrophils % Seg Neuts % (Manual) Lymphocytes % (Manual) Monocytes % (Manual) Basophils % (Manual) Nucleated RBC % Seg Neutrophils # Seg Neutrophils # Man Lymphocytes # (Manual) Monocytes # (Manual) Eosinophils # (Manual) Basophils # (Manual) PT INR APTT Heparin Anti-Xa Level POC ABG pH POC ABG pCO2 POC ABG pO2 Sodium Potassium 6.2 H* Chloride Carbon Dioxide 8 L* BUN 85 H Creatinine 2.8 H Glucose 602 H* POC Glucose 495 H Calcium 7.9 L Phosphorus 6.9 H D Magnesium 3.0 H AST Alkaline Phosphatase C-Reactive Protein Total Protein Albumin Lipase Vitamin B12 TSH Urine WBC (Auto) Urine Chloride Urine Total Protein Vancomycin Trough Crossmatch 10/13/16 10/13/16 10/13/16 08:49 08:55 10:12 WBC RBC Hgb Hct MCV RDW Plt Count Lymph % (Auto) [place] % (Auto) [place] # Seg Neutrophils % Seg Neuts % (Manual) Lymphocytes % (Manual) Monocytes % (Manual) Basophils % (Manual) Nucleated RBC % Seg Neutrophils # Seg Neutrophils # Man Lymphocytes # (Manual) Monocytes # (Manual) Eosinophils # (Manual) Basophils # (Manual) PT INR APTT Heparin Anti-Xa Level POC ABG pH POC ABG pCO2 POC ABG pO2 Sodium Potassium 5.6 H Chloride Carbon Dioxide 11 L BUN 77 H Creatinine 2.7 H Glucose 457 H POC Glucose > 500 H 424 H Calcium 8.0 L Phosphorus Magnesium AST Alkaline Phosphatase C-Reactive Protein Total Protein Albumin Lipase Vitamin B12 TSH Urine WBC (Auto) Urine Chloride Urine Total Protein Vancomycin Trough Crossmatch 10/13/16 10/13/16 10/13/16 10:44 11:22 12:20 WBC RBC Hgb Hct MCV RDW Plt Count Lymph % (Auto) [place] % (Auto) [place] # Seg Neutrophils % Seg Neuts % (Manual) Lymphocytes % (Manual) Monocytes % (Manual) Basophils % (Manual) Nucleated RBC % Seg Neutrophils # Seg Neutrophils # Man Lymphocytes # (Manual) Monocytes # (Manual) Eosinophils # (Manual) Basophils # (Manual) PT INR APTT Heparin Anti-Xa Level POC ABG pH POC ABG pCO2 POC ABG pO2 Sodium Potassium 5.4 H Chloride Carbon Dioxide 14 L BUN 72 H Creatinine 2.6 H Glucose 383 H POC Glucose 391 H 313 H Calcium 8.2 L Phosphorus Magnesium AST Alkaline Phosphatase C-Reactive Protein Total Protein Albumin Lipase Vitamin B12 TSH Urine WBC (Auto) Urine Chloride Urine Total Protein Vancomycin Trough Crossmatch 10/13/16 10/13/16 10/13/16 13:32 14:44 15:57 WBC RBC Hgb Hct MCV RDW Plt Count Lymph % (Auto) [place] % (Auto) [place] # Seg Neutrophils % Seg Neuts % (Manual) Lymphocytes % (Manual) Monocytes % (Manual) Basophils % (Manual) Nucleated RBC % Seg Neutrophils # Seg Neutrophils # Man Lymphocytes # (Manual) Monocytes # (Manual) Eosinophils # (Manual) Basophils # (Manual) PT INR APTT Heparin Anti-Xa Level POC ABG pH POC ABG pCO2 POC ABG pO2 Sodium Potassium Chloride Carbon Dioxide BUN Creatinine Glucose POC Glucose 296 H 210 H 190 H Calcium Phosphorus Magnesium AST Alkaline Phosphatase C-Reactive Protein Total Protein Albumin Lipase Vitamin B12 TSH Urine WBC (Auto) Urine Chloride Urine Total Protein Vancomycin Trough Crossmatch 10/13/16 10/13/16 10/13/16 16:14 16:14 17:17 WBC RBC Hgb Hct MCV RDW Plt Count Lymph % (Auto) [place] % (Auto) [place] # Seg Neutrophils % Seg Neuts % (Manual) Lymphocytes % (Manual) Monocytes % (Manual) Basophils % (Manual) Nucleated RBC % Seg Neutrophils # Seg Neutrophils # Man Lymphocytes # (Manual) Monocytes # (Manual) Eosinophils # (Manual) Basophils # (Manual) PT INR APTT Heparin Anti-Xa Level POC ABG pH POC ABG pCO2 POC ABG pO2 Sodium Potassium Chloride Carbon Dioxide 17 L BUN 58 H Creatinine 1.8 H Glucose 172 H POC Glucose 193 H Calcium 7.7 L Phosphorus Magnesium AST Alkaline Phosphatase C-Reactive Protein 10.50 H Total Protein Albumin Lipase Vitamin B12 TSH Urine WBC (Auto) Urine Chloride Urine Total Protein Vancomycin Trough Crossmatch 10/13/16 10/13/16 10/13/16 17:55 18:32 19:41 WBC RBC Hgb Hct MCV RDW Plt Count Lymph % (Auto) [place] % (Auto) [place] # Seg Neutrophils % Seg Neuts % (Manual) Lymphocytes % (Manual) Monocytes % (Manual) Basophils % (Manual) Nucleated RBC % Seg Neutrophils # Seg Neutrophils # Man Lymphocytes # (Manual) Monocytes # (Manual) Eosinophils # (Manual) Basophils # (Manual) PT INR APTT Heparin Anti-Xa Level POC ABG pH POC ABG pCO2 30.6 L POC ABG pO2 218 H Sodium Potassium Chloride Carbon Dioxide BUN Creatinine Glucose POC Glucose 192 H 177 H Calcium Phosphorus Magnesium AST Alkaline Phosphatase C-Reactive Protein Total Protein Albumin Lipase Vitamin B12 TSH Urine WBC (Auto) Urine Chloride Urine Total Protein Vancomycin Trough Crossmatch 10/13/16 10/13/16 10/13/16 20:54 22:07 23:13 WBC RBC Hgb Hct MCV RDW Plt Count Lymph % (Auto) [place] % (Auto) [place] # Seg Neutrophils % Seg Neuts % (Manual) Lymphocytes % (Manual) Monocytes % (Manual) Basophils % (Manual) Nucleated RBC % Seg Neutrophils # Seg Neutrophils # Man Lymphocytes # (Manual) Monocytes # (Manual) Eosinophils # (Manual) Basophils # (Manual) PT INR APTT Heparin Anti-Xa Level POC ABG pH POC ABG pCO2 POC ABG pO2 Sodium Potassium Chloride Carbon Dioxide BUN Creatinine Glucose POC Glucose 178 H 160 H 168 H Calcium Phosphorus Magnesium AST Alkaline Phosphatase C-Reactive Protein Total Protein Albumin Lipase Vitamin B12 TSH Urine WBC (Auto) Urine Chloride Urine Total Protein Vancomycin Trough Crossmatch 10/13/16 10/13/16 10/14/16 23:25 Unknown 00:21 WBC RBC Hgb Hct MCV RDW Plt Count Lymph % (Auto) [place] % (Auto) [place] # Seg Neutrophils % Seg Neuts % (Manual) Lymphocytes % (Manual) Monocytes % (Manual) Basophils % (Manual) Nucleated RBC % Seg Neutrophils # Seg Neutrophils # Man Lymphocytes # (Manual) Monocytes # (Manual) Eosinophils # (Manual) Basophils # (Manual) PT INR APTT Heparin Anti-Xa Level POC ABG pH POC ABG pCO2 POC ABG pO2 Sodium 148 H Potassium Chloride 114.6 H Carbon Dioxide 17 L BUN 56 H Creatinine 1.6 H Glucose 151 H POC Glucose 171 H Calcium 7.8 L Phosphorus Magnesium AST Alkaline Phosphatase C-Reactive Protein Total Protein Albumin Lipase Vitamin B12 TSH Urine WBC (Auto) Urine Chloride 10.0 L Urine Total Protein < 4 L Vancomycin Trough Crossmatch 10/14/16 10/14/1617 01:22 02:29 03:30 WBC RBC Hgb Hct MCV RDW Plt Count Lymph % (Auto) [place] % (Auto) [place] # Seg Neutrophils % Seg Neuts % (Manual) Lymphocytes % (Manual) Monocytes % (Manual) Basophils % (Manual) Nucleated RBC % Seg Neutrophils # Seg Neutrophils # Man Lymphocytes # (Manual) Monocytes # (Manual) Eosinophils # (Manual) Basophils # (Manual) PT INR APTT Heparin Anti-Xa Level POC ABG pH POC ABG pCO2 POC ABG pO2 Sodium Potassium Chloride Carbon Dioxide BUN Creatinine Glucose POC Glucose 144 H 136 H 143 H Calcium Phosphorus Magnesium AST Alkaline Phosphatase C-Reactive Protein Total Protein Albumin Lipase Vitamin B12 TSH Urine WBC (Auto) Urine Chloride Urine Total Protein Vancomycin Trough Crossmatch 10/14/16 10/14/16 10/14/16 04:28 05:16 05:44 WBC RBC Hgb Hct MCV RDW Plt Count Lymph % (Auto) [place] % (Auto) [place] # Seg Neutrophils % Seg Neuts % (Manual) Lymphocytes % (Manual) Monocytes % (Manual) Basophils % (Manual) Nucleated RBC % Seg Neutrophils # Seg Neutrophils # Man Lymphocytes # (Manual) Monocytes # (Manual) Eosinophils # (Manual) Basophils # (Manual) PT INR APTT Heparin Anti-Xa Level POC ABG pH POC ABG pCO2 28.2 L POC ABG pO2 125 H Sodium Potassium Chloride Carbon Dioxide BUN Creatinine Glucose POC Glucose 133 H 160 H Calcium Phosphorus Magnesium AST Alkaline Phosphatase C-Reactive Protein Total Protein Albumin Lipase Vitamin B12 TSH Urine WBC (Auto) Urine Chloride Urine Total Protein Vancomycin Trough Crossmatch 10/14/16 10/14/16 10/14/16 06:12 06:45 07:03 WBC RBC Hgb Hct MCV RDW Plt Count Lymph % (Auto) [place] % (Auto) [place] # Seg Neutrophils % Seg Neuts % (Manual) Lymphocytes % (Manual) Monocytes % (Manual) Basophils % (Manual) Nucleated RBC % Seg Neutrophils # Seg Neutrophils # Man Lymphocytes # (Manual) Monocytes # (Manual) Eosinophils # (Manual) Basophils # (Manual) PT INR APTT Heparin Anti-Xa Level POC ABG pH POC ABG pCO2 POC ABG pO2 Sodium 149 H Potassium Chloride 115.4 H Carbon Dioxide 17 L BUN 45 H Creatinine 1.5 H Glucose 139 H POC Glucose 149 H Calcium 7.4 L Phosphorus 1.0 L D Magnesium AST Alkaline Phosphatase C-Reactive Protein Total Protein Albumin Lipase Vitamin B12 TSH Urine WBC (Auto) Urine Chloride Urine Total Protein Vancomycin Trough Crossmatch 10/14/16 10/14/16 10/14/16 07:03 08:02 09:16 WBC RBC Hgb Hct MCV RDW Plt Count Lymph % (Auto) [place] % (Auto) [place] # Seg Neutrophils % Seg Neuts % (Manual) Lymphocytes % (Manual) Monocytes % (Manual) Basophils % (Manual) Nucleated RBC % Seg Neutrophils # Seg Neutrophils # Man Lymphocytes # (Manual) Monocytes # (Manual) Eosinophils # (Manual) Basophils # (Manual) PT INR APTT Heparin Anti-Xa Level POC ABG pH POC ABG pCO2 POC ABG pO2 Sodium Potassium Chloride Carbon Dioxide BUN Creatinine Glucose POC Glucose 156 H 158 H Calcium Phosphorus Magnesium AST Alkaline Phosphatase C-Reactive Protein Total Protein Albumin Lipase 738 H Vitamin B12 TSH Urine WBC (Auto) Urine Chloride Urine Total Protein Vancomycin Trough Crossmatch 10/14/16 10/14/16 10/14/16 10:26 11:03 11:57 WBC RBC Hgb Hct MCV RDW Plt Count Lymph % (Auto) [place] % (Auto) [place] # Seg Neutrophils % Seg Neuts % (Manual) Lymphocytes % (Manual) Monocytes % (Manual) Basophils % (Manual) Nucleated RBC % Seg Neutrophils # Seg Neutrophils # Man Lymphocytes # (Manual) Monocytes # (Manual) Eosinophils # (Manual) Basophils # (Manual) PT INR APTT Heparin Anti-Xa Level POC ABG pH 7.198 L POC ABG pCO2 47.5 H POC ABG pO2 Sodium Potassium Chloride Carbon Dioxide BUN Creatinine Glucose POC Glucose 174 H 189 H Calcium Phosphorus Magnesium AST Alkaline Phosphatase C-Reactive Protein Total Protein Albumin Lipase Vitamin B12 TSH Urine WBC (Auto) Urine Chloride Urine Total Protein Vancomycin Trough Crossmatch 10/14/16 10/14/16 10/14/16 12:02 12:02 13:11 WBC 13.4 H RBC 3.60 L Hgb Hct MCV 98 H D RDW 13.1 L Plt Count Lymph % (Auto) [place] % (Auto) [place] # Seg Neutrophils % Seg Neuts % (Manual) Lymphocytes % (Manual) Monocytes % (Manual) Basophils % (Manual) Nucleated RBC % Seg Neutrophils # Seg Neutrophils # Man Lymphocytes # (Manual) Monocytes # (Manual) Eosinophils # (Manual) Basophils # (Manual) PT INR APTT Heparin Anti-Xa Level POC ABG pH POC ABG pCO2 POC ABG pO2 Sodium Potassium Chloride 110.7 H Carbon Dioxide 19 L BUN 38 H Creatinine 1.4 H Glucose 182 H POC Glucose 173 H Calcium 7.5 L Phosphorus Magnesium AST Alkaline Phosphatase C-Reactive Protein Total Protein Albumin Lipase Vitamin B12 TSH Urine WBC (Auto) Urine Chloride Urine Total Protein Vancomycin Trough Crossmatch 10/14/16 10/14/16 10/14/16 14:24 15:31 16:36 WBC RBC Hgb Hct MCV RDW Plt Count Lymph % (Auto) [place] % (Auto) [place] # Seg Neutrophils % Seg Neuts % (Manual) Lymphocytes % (Manual) Monocytes % (Manual) Basophils % (Manual) Nucleated RBC % Seg Neutrophils # Seg Neutrophils # Man Lymphocytes # (Manual) Monocytes # (Manual) Eosinophils # (Manual) Basophils # (Manual) PT INR APTT Heparin Anti-Xa Level POC ABG pH POC ABG pCO2 POC ABG pO2 Sodium Potassium Chloride Carbon Dioxide BUN Creatinine Glucose POC Glucose 123 H 124 H 156 H Calcium Phosphorus Magnesium AST Alkaline Phosphatase C-Reactive Protein Total Protein Albumin Lipase Vitamin B12 TSH Urine WBC (Auto) Urine Chloride Urine Total Protein Vancomycin Trough Crossmatch 10/14/16 10/14/16 10/14/16 17:43 19:00 20:08 WBC RBC Hgb Hct MCV RDW Plt Count Lymph % (Auto) [place] % (Auto) [place] # Seg Neutrophils % Seg Neuts % (Manual) Lymphocytes % (Manual) Monocytes % (Manual) Basophils % (Manual) Nucleated RBC % Seg Neutrophils # Seg Neutrophils # Man Lymphocytes # (Manual) Monocytes # (Manual) Eosinophils # (Manual) Basophils # (Manual) PT INR APTT Heparin Anti-Xa Level POC ABG pH POC ABG pCO2 POC ABG pO2 Sodium Potassium Chloride Carbon Dioxide BUN Creatinine Glucose POC Glucose 154 H 123 H 138 H Calcium Phosphorus Magnesium AST Alkaline Phosphatase C-Reactive Protein Total Protein Albumin Lipase Vitamin B12 TSH Urine WBC (Auto) Urine Chloride Urine Total Protein Vancomycin Trough Crossmatch 10/14/16 10/14/16 10/14/16 21:17 22:25 23:37 WBC RBC Hgb Hct MCV RDW Plt Count Lymph % (Auto) [place] % (Auto) [place] # Seg Neutrophils % Seg Neuts % (Manual) Lymphocytes % (Manual) Monocytes % (Manual) Basophils % (Manual) Nucleated RBC % Seg Neutrophils # Seg Neutrophils # Man Lymphocytes # (Manual) Monocytes # (Manual) Eosinophils # (Manual) Basophils # (Manual) PT INR APTT Heparin Anti-Xa Level POC ABG pH POC ABG pCO2 POC ABG pO2 Sodium Potassium Chloride Carbon Dioxide BUN Creatinine Glucose POC Glucose 148 H 132 H 137 H Calcium Phosphorus Magnesium AST Alkaline Phosphatase C-Reactive Protein Total Protein Albumin Lipase Vitamin B12 TSH Urine WBC (Auto) Urine Chloride Urine Total Protein Vancomycin Trough Crossmatch 10/15/16 10/15/16 10/15/16 00:49 01:53 03:06 WBC RBC Hgb Hct MCV RDW Plt Count Lymph % (Auto) [place] % (Auto) [place] # Seg Neutrophils % Seg Neuts % (Manual) Lymphocytes % (Manual) Monocytes % (Manual) Basophils % (Manual) Nucleated RBC % Seg Neutrophils # Seg Neutrophils # Man Lymphocytes # (Manual) Monocytes # (Manual) Eosinophils # (Manual) Basophils # (Manual) PT INR APTT Heparin Anti-Xa Level POC ABG pH POC ABG pCO2 POC ABG pO2 Sodium Potassium Chloride Carbon Dioxide BUN Creatinine Glucose POC Glucose 132 H 134 H 134 H Calcium Phosphorus Magnesium AST Alkaline Phosphatase C-Reactive Protein Total Protein Albumin Lipase Vitamin B12 TSH Urine WBC (Auto) Urine Chloride Urine Total Protein Vancomycin Trough Crossmatch 10/15/16 10/15/16 10/15/16 04:40 04:46 06:21 WBC RBC Hgb Hct MCV RDW Plt Count Lymph % (Auto) [place] % (Auto) [place] # Seg Neutrophils % Seg Neuts % (Manual) Lymphocytes % (Manual) Monocytes % (Manual) Basophils % (Manual) Nucleated RBC % Seg Neutrophils # Seg Neutrophils # Man Lymphocytes # (Manual) Monocytes # (Manual) Eosinophils # (Manual) Basophils # (Manual) PT INR APTT Heparin Anti-Xa Level POC ABG pH POC ABG pCO2 30.7 L POC ABG pO2 108 H Sodium Potassium Chloride 109.0 H Carbon Dioxide 17 L BUN 27 H Creatinine Glucose 124 H POC Glucose 160 H Calcium 7.5 L Phosphorus Magnesium AST 79 H Alkaline Phosphatase C-Reactive Protein Total Protein 5.5 L Albumin 3.0 L Lipase Vitamin B12 TSH Urine WBC (Auto) Urine Chloride Urine Total Protein Vancomycin Trough Crossmatch 10/15/16 10/15/16 10/15/16 07:12 08:01 09:03 WBC RBC Hgb Hct MCV RDW Plt Count Lymph % (Auto) [place] % (Auto) [place] # Seg Neutrophils % Seg Neuts % (Manual) Lymphocytes % (Manual) Monocytes % (Manual) Basophils % (Manual) Nucleated RBC % Seg Neutrophils # Seg Neutrophils # Man Lymphocytes # (Manual) Monocytes # (Manual) Eosinophils # (Manual) Basophils # (Manual) PT INR APTT Heparin Anti-Xa Level POC ABG pH POC ABG pCO2 POC ABG pO2 Sodium Potassium Chloride Carbon Dioxide BUN Creatinine Glucose POC Glucose 179 H 187 H 165 H Calcium Phosphorus Magnesium AST Alkaline Phosphatase C-Reactive Protein Total Protein Albumin Lipase Vitamin B12 TSH Urine WBC (Auto) Urine Chloride Urine Total Protein Vancomycin Trough Crossmatch 10/15/16 10/15/16 10/15/16 10:06 10:06 10:07 WBC 12.1 H RBC 3.01 L Hgb 9.7 L Hct 29.6 L MCV 98 H RDW Plt Count 129 L Lymph % (Auto) [place] % (Auto) [place] # Seg Neutrophils % Seg Neuts % (Manual) Lymphocytes % (Manual) Monocytes % (Manual) Basophils % (Manual) Nucleated RBC % Seg Neutrophils # Seg Neutrophils # Man Lymphocytes # (Manual) Monocytes # (Manual) Eosinophils # (Manual) Basophils # (Manual) PT INR APTT Heparin Anti-Xa Level POC ABG pH POC ABG pCO2 POC ABG pO2 Sodium Potassium 3.2 L D Chloride 109.6 H Carbon Dioxide 18 L BUN 22 H Creatinine Glucose 127 H POC Glucose 147 H Calcium 7.0 L Phosphorus Magnesium AST Alkaline Phosphatase C-Reactive Protein Total Protein Albumin Lipase Vitamin B12 TSH Urine WBC (Auto) Urine Chloride Urine Total Protein Vancomycin Trough Crossmatch 10/15/16 10/15/16 10/15/16 11:05 11:06 11:57 WBC RBC Hgb Hct MCV RDW Plt Count Lymph % (Auto) [place] % (Auto) [place] # Seg Neutrophils % Seg Neuts % (Manual) Lymphocytes % (Manual) Monocytes % (Manual) Basophils % (Manual) Nucleated RBC % Seg Neutrophils # Seg Neutrophils # Man Lymphocytes # (Manual) Monocytes # (Manual) Eosinophils # (Manual) Basophils # (Manual) PT INR APTT Heparin Anti-Xa Level POC ABG pH 7.305 L POC ABG pCO2 POC ABG pO2 Sodium Potassium Chloride Carbon Dioxide BUN Creatinine Glucose POC Glucose 145 H Calcium Phosphorus Magnesium AST Alkaline Phosphatase C-Reactive Protein Total Protein Albumin Lipase Vitamin B12 TSH Urine WBC (Auto) 7.0 H Urine Chloride Urine Total Protein Vancomycin Trough Crossmatch 10/15/16 10/15/16 10/15/16 12:04 13:59 15:24 WBC RBC Hgb Hct MCV RDW Plt Count Lymph % (Auto) [place] % (Auto) [place] # Seg Neutrophils % Seg Neuts % (Manual) Lymphocytes % (Manual) Monocytes % (Manual) Basophils % (Manual) Nucleated RBC % Seg Neutrophils # Seg Neutrophils # Man Lymphocytes # (Manual) Monocytes # (Manual) Eosinophils # (Manual) Basophils # (Manual) PT INR APTT Heparin Anti-Xa Level POC ABG pH POC ABG pCO2 POC ABG pO2 Sodium Potassium Chloride Carbon Dioxide BUN Creatinine Glucose POC Glucose 123 H 147 H 153 H Calcium Phosphorus Magnesium AST Alkaline Phosphatase C-Reactive Protein Total Protein Albumin Lipase Vitamin B12 TSH Urine WBC (Auto) Urine Chloride Urine Total Protein Vancomycin Trough Crossmatch 10/15/16 10/15/16 10/15/16 16:30 17:34 18:30 WBC RBC Hgb Hct MCV RDW Plt Count Lymph % (Auto) [place] % (Auto) [place] # Seg Neutrophils % Seg Neuts % (Manual) Lymphocytes % (Manual) Monocytes % (Manual) Basophils % (Manual) Nucleated RBC % Seg Neutrophils # Seg Neutrophils # Man Lymphocytes # (Manual) Monocytes # (Manual) Eosinophils # (Manual) Basophils # (Manual) PT INR APTT Heparin Anti-Xa Level POC ABG pH POC ABG pCO2 POC ABG pO2 Sodium Potassium Chloride Carbon Dioxide BUN Creatinine Glucose POC Glucose 223 H 236 H 164 H Calcium Phosphorus Magnesium AST Alkaline Phosphatase C-Reactive Protein Total Protein Albumin Lipase Vitamin B12 TSH Urine WBC (Auto) Urine Chloride Urine Total Protein Vancomycin Trough Crossmatch 10/15/16 10/15/16 10/15/16 19:14 20:31 21:23 WBC RBC Hgb Hct MCV RDW Plt Count Lymph % (Auto) [place] % (Auto) [place] # Seg Neutrophils % Seg Neuts % (Manual) Lymphocytes % (Manual) Monocytes % (Manual) Basophils % (Manual) Nucleated RBC % Seg Neutrophils # Seg Neutrophils # Man Lymphocytes # (Manual) Monocytes # (Manual) Eosinophils # (Manual) Basophils # (Manual) PT INR APTT Heparin Anti-Xa Level POC ABG pH POC ABG pCO2 POC ABG pO2 Sodium Potassium Chloride Carbon Dioxide BUN Creatinine Glucose POC Glucose 138 H 158 H 158 H Calcium Phosphorus Magnesium AST Alkaline Phosphatase C-Reactive Protein Total Protein Albumin Lipase Vitamin B12 TSH Urine WBC (Auto) Urine Chloride Urine Total Protein Vancomycin Trough Crossmatch 10/15/16 10/15/16 10/16/16 22:04 22:57 00:11 WBC RBC Hgb Hct MCV RDW Plt Count Lymph % (Auto) [place] % (Auto) [place] # Seg Neutrophils % Seg Neuts % (Manual) Lymphocytes % (Manual) Monocytes % (Manual) Basophils % (Manual) Nucleated RBC % Seg Neutrophils # Seg Neutrophils # Man Lymphocytes # (Manual) Monocytes # (Manual) Eosinophils # (Manual) Basophils # (Manual) PT INR APTT Heparin Anti-Xa Level POC ABG pH POC ABG pCO2 POC ABG pO2 Sodium Potassium Chloride Carbon Dioxide BUN Creatinine Glucose POC Glucose 168 H 213 H 166 H Calcium Phosphorus Magnesium AST Alkaline Phosphatase C-Reactive Protein Total Protein Albumin Lipase Vitamin B12 TSH Urine WBC (Auto) Urine Chloride Urine Total Protein Vancomycin Trough Crossmatch 10/16/16 10/16/16 10/16/16 01:16 02:32 03:38 WBC RBC Hgb Hct MCV RDW Plt Count Lymph % (Auto) [place] % (Auto) [place] # Seg Neutrophils % Seg Neuts % (Manual) Lymphocytes % (Manual) Monocytes % (Manual) Basophils % (Manual) Nucleated RBC % Seg Neutrophils # Seg Neutrophils # Man Lymphocytes # (Manual) Monocytes # (Manual) Eosinophils # (Manual) Basophils # (Manual) PT INR APTT Heparin Anti-Xa Level POC ABG pH POC ABG pCO2 POC ABG pO2 Sodium Potassium Chloride Carbon Dioxide BUN Creatinine Glucose POC Glucose 171 H 164 H 147 H Calcium Phosphorus Magnesium AST Alkaline Phosphatase C-Reactive Protein Total Protein Albumin Lipase Vitamin B12 TSH Urine WBC (Auto) Urine Chloride Urine Total Protein Vancomycin Trough Crossmatch 10/16/16 10/16/16 10/16/16 04:14 04:14 04:49 WBC RBC Hgb Hct MCV RDW Plt Count Lymph % (Auto) [place] % (Auto) [place] # Seg Neutrophils % Seg Neuts % (Manual) Lymphocytes % (Manual) Monocytes % (Manual) Basophils % (Manual) Nucleated RBC % Seg Neutrophils # Seg Neutrophils # Man Lymphocytes # (Manual) Monocytes # (Manual) Eosinophils # (Manual) Basophils # (Manual) PT INR APTT Heparin Anti-Xa Level POC ABG pH POC ABG pCO2 POC ABG pO2 Sodium 147 H Potassium Chloride 110.9 H Carbon Dioxide 19 L BUN Creatinine Glucose 139 H POC Glucose 144 H Calcium 7.3 L Phosphorus 2.3 L Magnesium AST Alkaline Phosphatase C-Reactive Protein Total Protein Albumin Lipase 143 H Vitamin B12 TSH Urine WBC (Auto) Urine Chloride Urine Total Protein Vancomycin Trough Crossmatch 10/16/16 10/16/16 10/16/16 05:03 05:41 05:58 WBC 16.5 H RBC 3.36 L Hgb Hct MCV 98 H RDW 13.1 L Plt Count Lymph % (Auto) 8.5 L [place] % (Auto) 7.6 H [place] # 1.3 H Seg Neutrophils % 83.3 H Seg Neuts % (Manual) Lymphocytes % (Manual) Monocytes % (Manual) Basophils % (Manual) Nucleated RBC % Seg Neutrophils # 13.8 H Seg Neutrophils # Man Lymphocytes # (Manual) Monocytes # (Manual) Eosinophils # (Manual) Basophils # (Manual) PT INR APTT Heparin Anti-Xa Level POC ABG pH POC ABG pCO2 30.7 L POC ABG pO2 128 H Sodium Potassium Chloride Carbon Dioxide BUN Creatinine Glucose POC Glucose 131 H Calcium Phosphorus Magnesium AST Alkaline Phosphatase C-Reactive Protein Total Protein Albumin Lipase Vitamin B12 TSH Urine WBC (Auto) Urine Chloride Urine Total Protein Vancomycin Trough Crossmatch 10/16/16 10/16/16 10/16/16 06:32 09:27 09:35 WBC RBC Hgb Hct MCV RDW Plt Count Lymph % (Auto) [place] % (Auto) [place] # Seg Neutrophils % Seg Neuts % (Manual) Lymphocytes % (Manual) Monocytes % (Manual) Basophils % (Manual) Nucleated RBC % Seg Neutrophils # Seg Neutrophils # Man Lymphocytes # (Manual) Monocytes # (Manual) Eosinophils # (Manual) Basophils # (Manual) PT INR APTT Heparin Anti-Xa Level POC ABG pH POC ABG pCO2 32.8 L POC ABG pO2 137 H Sodium Potassium Chloride Carbon Dioxide BUN Creatinine Glucose POC Glucose 121 H 150 H Calcium Phosphorus Magnesium AST Alkaline Phosphatase C-Reactive Protein Total Protein Albumin Lipase Vitamin B12 TSH Urine WBC (Auto) Urine Chloride Urine Total Protein Vancomycin Trough Crossmatch 10/16/16 10/16/16 10/16/16 10:47 13:27 14:24 WBC RBC Hgb Hct MCV RDW Plt Count Lymph % (Auto) [place] % (Auto) [place] # Seg Neutrophils % Seg Neuts % (Manual) Lymphocytes % (Manual) Monocytes % (Manual) Basophils % (Manual) Nucleated RBC % Seg Neutrophils # Seg Neutrophils # Man Lymphocytes # (Manual) Monocytes # (Manual) Eosinophils # (Manual) Basophils # (Manual) PT INR APTT Heparin Anti-Xa Level POC ABG pH POC ABG pCO2 POC ABG pO2 Sodium Potassium Chloride Carbon Dioxide BUN Creatinine Glucose POC Glucose 184 H 171 H 174 H Calcium Phosphorus Magnesium AST Alkaline Phosphatase C-Reactive Protein Total Protein Albumin Lipase Vitamin B12 TSH Urine WBC (Auto) Urine Chloride Urine Total Protein Vancomycin Trough Crossmatch 10/16/16 10/16/16 10/16/16 15:48 16:26 18:17 WBC RBC Hgb Hct MCV RDW Plt Count Lymph % (Auto) [place] % (Auto) [place] # Seg Neutrophils % Seg Neuts % (Manual) Lymphocytes % (Manual) Monocytes % (Manual) Basophils % (Manual) Nucleated RBC % Seg Neutrophils # Seg Neutrophils # Man Lymphocytes # (Manual) Monocytes # (Manual) Eosinophils # (Manual) Basophils # (Manual) PT INR APTT Heparin Anti-Xa Level POC ABG pH POC ABG pCO2 POC ABG pO2 Sodium Potassium Chloride Carbon Dioxide BUN Creatinine Glucose POC Glucose 205 H 204 H 234 H Calcium Phosphorus Magnesium AST Alkaline Phosphatase C-Reactive Protein Total Protein Albumin Lipase Vitamin B12 TSH Urine WBC (Auto) Urine Chloride Urine Total Protein Vancomycin Trough Crossmatch 10/16/16 10/16/16 10/16/16 19:40 20:33 21:36 WBC RBC Hgb Hct MCV RDW Plt Count Lymph % (Auto) [place] % (Auto) [place] # Seg Neutrophils % Seg Neuts % (Manual) Lymphocytes % (Manual) Monocytes % (Manual) Basophils % (Manual) Nucleated RBC % Seg Neutrophils # Seg Neutrophils # Man Lymphocytes # (Manual) Monocytes # (Manual) Eosinophils # (Manual) Basophils # (Manual) PT INR APTT Heparin Anti-Xa Level POC ABG pH POC ABG pCO2 POC ABG pO2 Sodium Potassium Chloride Carbon Dioxide BUN Creatinine Glucose POC Glucose 167 H 153 H 158 H Calcium Phosphorus Magnesium AST Alkaline Phosphatase C-Reactive Protein Total Protein Albumin Lipase Vitamin B12 TSH Urine WBC (Auto) Urine Chloride Urine Total Protein Vancomycin Trough Crossmatch 10/16/16 10/16/16 10/17/16 22:54 23:48 00:47 WBC RBC Hgb Hct MCV RDW Plt Count Lymph % (Auto) [place] % (Auto) [place] # Seg Neutrophils % Seg Neuts % (Manual) Lymphocytes % (Manual) Monocytes % (Manual) Basophils % (Manual) Nucleated RBC % Seg Neutrophils # Seg Neutrophils # Man Lymphocytes # (Manual) Monocytes # (Manual) Eosinophils # (Manual) Basophils # (Manual) PT INR APTT Heparin Anti-Xa Level POC ABG pH POC ABG pCO2 POC ABG pO2 Sodium Potassium Chloride Carbon Dioxide BUN Creatinine Glucose POC Glucose 180 H 207 H 196 H Calcium Phosphorus Magnesium AST Alkaline Phosphatase C-Reactive Protein Total Protein Albumin Lipase Vitamin B12 TSH Urine WBC (Auto) Urine Chloride Urine Total Protein Vancomycin Trough Crossmatch 10/17/16 10/17/16 10/17/16 01:57 02:49 03:50 WBC RBC Hgb Hct MCV RDW Plt Count Lymph % (Auto) [place] % (Auto) [place] # Seg Neutrophils % Seg Neuts % (Manual) Lymphocytes % (Manual) Monocytes % (Manual) Basophils % (Manual) Nucleated RBC % Seg Neutrophils # Seg Neutrophils # Man Lymphocytes # (Manual) Monocytes # (Manual) Eosinophils # (Manual) Basophils # (Manual) PT INR APTT Heparin Anti-Xa Level POC ABG pH POC ABG pCO2 POC ABG pO2 Sodium Potassium Chloride Carbon Dioxide BUN Creatinine Glucose POC Glucose 180 H 151 H 106 H Calcium Phosphorus Magnesium AST Alkaline Phosphatase C-Reactive Protein Total Protein Albumin Lipase Vitamin B12 TSH Urine WBC (Auto) Urine Chloride Urine Total Protein Vancomycin Trough Crossmatch 10/17/16 10/17/16 10/17/16 04:59 06:03 06:35 WBC RBC Hgb Hct MCV RDW Plt Count Lymph % (Auto) [place] % (Auto) [place] # Seg Neutrophils % Seg Neuts % (Manual) Lymphocytes % (Manual) Monocytes % (Manual) Basophils % (Manual) Nucleated RBC % Seg Neutrophils # Seg Neutrophils # Man Lymphocytes # (Manual) Monocytes # (Manual) Eosinophils # (Manual) Basophils # (Manual) PT INR APTT Heparin Anti-Xa Level POC ABG pH 7.453 H POC ABG pCO2 30.1 L POC ABG pO2 111 H Sodium Potassium Chloride Carbon Dioxide BUN Creatinine Glucose POC Glucose 145 H 157 H Calcium Phosphorus Magnesium AST Alkaline Phosphatase C-Reactive Protein Total Protein Albumin Lipase Vitamin B12 TSH Urine WBC (Auto) Urine Chloride Urine Total Protein Vancomycin Trough Crossmatch 10/17/16 10/17/16 10/17/16 07:08 07:11 08:01 WBC RBC Hgb Hct MCV RDW Plt Count Lymph % (Auto) [place] % (Auto) [place] # Seg Neutrophils % Seg Neuts % (Manual) Lymphocytes % (Manual) Monocytes % (Manual) Basophils % (Manual) Nucleated RBC % Seg Neutrophils # Seg Neutrophils # Man Lymphocytes # (Manual) Monocytes # (Manual) Eosinophils # (Manual) Basophils # (Manual) PT INR APTT Heparin Anti-Xa Level POC ABG pH POC ABG pCO2 POC ABG pO2 Sodium 147 H Potassium Chloride 113.8 H Carbon Dioxide 19 L BUN Creatinine Glucose 136 H POC Glucose 136 H 152 H Calcium 7.7 L Phosphorus Magnesium AST Alkaline Phosphatase C-Reactive Protein Total Protein Albumin Lipase Vitamin B12 TSH Urine WBC (Auto) Urine Chloride Urine Total Protein Vancomycin Trough Crossmatch 10/17/16 10/17/16 10/17/16 08:23 09:17 09:53 WBC 18.1 H RBC 3.01 L Hgb 9.7 L Hct 29.4 L MCV 98 H RDW Plt Count 116 L Lymph % (Auto) [place] % (Auto) [place] # Seg Neutrophils % Seg Neuts % (Manual) 77.0 H Lymphocytes % (Manual) 4.0 L Monocytes % (Manual) 12.0 H Basophils % (Manual) Nucleated RBC % Seg Neutrophils # Seg Neutrophils # Man 13.9 H Lymphocytes # (Manual) 0.7 L Monocytes # (Manual) 2.2 H Eosinophils # (Manual) Basophils # (Manual) PT INR APTT Heparin Anti-Xa Level POC ABG pH POC ABG pCO2 POC ABG pO2 Sodium Potassium Chloride Carbon Dioxide BUN Creatinine Glucose POC Glucose 148 H 137 H Calcium Phosphorus Magnesium AST Alkaline Phosphatase C-Reactive Protein Total Protein Albumin Lipase Vitamin B12 TSH Urine WBC (Auto) Urine Chloride Urine Total Protein Vancomycin Trough Crossmatch 10/17/16 10/17/16 10/17/16 11:43 16:07 17:42 WBC RBC Hgb Hct MCV RDW Plt Count Lymph % (Auto) [place] % (Auto) [place] # Seg Neutrophils % Seg Neuts % (Manual) Lymphocytes % (Manual) Monocytes % (Manual) Basophils % (Manual) Nucleated RBC % Seg Neutrophils # Seg Neutrophils # Man Lymphocytes # (Manual) Monocytes # (Manual) Eosinophils # (Manual) Basophils # (Manual) PT 16.4 H INR 1.33 H APTT 38.8 H Heparin Anti-Xa Level POC ABG pH POC ABG pCO2 POC ABG pO2 Sodium Potassium Chloride Carbon Dioxide BUN Creatinine Glucose POC Glucose 179 H 153 H Calcium Phosphorus Magnesium AST Alkaline Phosphatase C-Reactive Protein Total Protein Albumin Lipase Vitamin B12 TSH Urine WBC (Auto) Urine Chloride Urine Total Protein Vancomycin Trough Crossmatch 10/17/16 10/18/16 10/18/16 22:54 04:37 05:39 WBC RBC Hgb Hct MCV RDW Plt Count Lymph % (Auto) [place] % (Auto) [place] # Seg Neutrophils % Seg Neuts % (Manual) Lymphocytes % (Manual) Monocytes % (Manual) Basophils % (Manual) Nucleated RBC % Seg Neutrophils # Seg Neutrophils # Man Lymphocytes # (Manual) Monocytes # (Manual) Eosinophils # (Manual) Basophils # (Manual) PT INR APTT Heparin Anti-Xa Level 0.27 L POC ABG pH 7.454 H POC ABG pCO2 30.8 L POC ABG pO2 115 H Sodium Potassium Chloride Carbon Dioxide BUN Creatinine Glucose POC Glucose 69 L Calcium Phosphorus Magnesium AST Alkaline Phosphatase C-Reactive Protein Total Protein Albumin Lipase Vitamin B12 TSH Urine WBC (Auto) Urine Chloride Urine Total Protein Vancomycin Trough Crossmatch 10/18/16 10/18/16 10/18/16 06:46 06:46 06:46 WBC 20.5 H RBC 2.62 L Hgb 8.4 L Hct 26.0 L MCV 100 H RDW Plt Count Lymph % (Auto) [place] % (Auto) [place] # Seg Neutrophils % Seg Neuts % (Manual) 75.0 H Lymphocytes % (Manual) 9.0 L Monocytes % (Manual) 14.0 H Basophils % (Manual) Nucleated RBC % Seg Neutrophils # Seg Neutrophils # Man 15.4 H Lymphocytes # (Manual) Monocytes # (Manual) 2.9 H Eosinophils # (Manual) Basophils # (Manual) PT INR APTT Heparin Anti-Xa Level POC ABG pH POC ABG pCO2 POC ABG pO2 Sodium Potassium Chloride 110.6 H Carbon Dioxide BUN Creatinine 1.3 H Glucose 153 H POC Glucose Calcium 8.0 L Phosphorus Magnesium 1.6 L AST Alkaline Phosphatase C-Reactive Protein Total Protein Albumin Lipase Vitamin B12 TSH Urine WBC (Auto) Urine Chloride Urine Total Protein Vancomycin Trough Crossmatch 10/18/16 10/18/16 10/18/16 07:30 11:37 17:51 WBC RBC Hgb Hct MCV RDW Plt Count Lymph % (Auto) [place] % (Auto) [place] # Seg Neutrophils % Seg Neuts % (Manual) Lymphocytes % (Manual) Monocytes % (Manual) Basophils % (Manual) Nucleated RBC % Seg Neutrophils # Seg Neutrophils # Man Lymphocytes # (Manual) Monocytes # (Manual) Eosinophils # (Manual) Basophils # (Manual) PT INR APTT Heparin Anti-Xa Level POC ABG pH POC ABG pCO2 POC ABG pO2 Sodium Potassium Chloride Carbon Dioxide BUN Creatinine Glucose POC Glucose 162 H 156 H 164 H Calcium Phosphorus Magnesium AST Alkaline Phosphatase C-Reactive Protein Total Protein Albumin Lipase Vitamin B12 TSH Urine WBC (Auto) Urine Chloride Urine Total Protein Vancomycin Trough Crossmatch 10/18/16 10/19/16 10/19/16 23:44 03:59 05:13 WBC 18.2 H RBC 2.76 L Hgb 9.0 L Hct 27.7 L MCV 100 H RDW Plt Count Lymph % (Auto) [place] % (Auto) [place] # Seg Neutrophils % Seg Neuts % (Manual) 76.0 H Lymphocytes % (Manual) 10.0 L Monocytes % (Manual) Basophils % (Manual) Nucleated RBC % Seg Neutrophils # Seg Neutrophils # Man 13.8 H Lymphocytes # (Manual) Monocytes # (Manual) Eosinophils # (Manual) Basophils # (Manual) PT INR APTT Heparin Anti-Xa Level POC ABG pH POC ABG pCO2 32.2 L POC ABG pO2 128 H Sodium Potassium Chloride Carbon Dioxide BUN Creatinine Glucose POC Glucose 278 H Calcium Phosphorus Magnesium AST Alkaline Phosphatase C-Reactive Protein Total Protein Albumin Lipase Vitamin B12 TSH Urine WBC (Auto) Urine Chloride Urine Total Protein Vancomycin Trough Crossmatch 10/19/16 10/19/16 10/19/16 06:01 06:30 12:20 WBC RBC Hgb Hct MCV RDW Plt Count Lymph % (Auto) [place] % (Auto) [place] # Seg Neutrophils % Seg Neuts % (Manual) Lymphocytes % (Manual) Monocytes % (Manual) Basophils % (Manual) Nucleated RBC % Seg Neutrophils # Seg Neutrophils # Man Lymphocytes # (Manual) Monocytes # (Manual) Eosinophils # (Manual) Basophils # (Manual) PT INR APTT Heparin Anti-Xa Level POC ABG pH POC ABG pCO2 POC ABG pO2 Sodium Potassium Chloride Carbon Dioxide 18 L BUN Creatinine 1.3 H Glucose 262 H POC Glucose 261 H 349 H Calcium 7.7 L Phosphorus 4.8 H D Magnesium AST Alkaline Phosphatase C-Reactive Protein Total Protein Albumin Lipase Vitamin B12 TSH Urine WBC (Auto) Urine Chloride Urine Total Protein Vancomycin Trough Crossmatch 10/19/16 10/20/16 10/20/16 16:48 00:17 05:20 WBC 22.5 H RBC 2.80 L Hgb 8.9 L Hct 28.3 L MCV 101 H RDW Plt Count Lymph % (Auto) [place] % (Auto) [place] # Seg Neutrophils % Seg Neuts % (Manual) Lymphocytes % (Manual) 10.0 L Monocytes % (Manual) Basophils % (Manual) Nucleated RBC % Seg Neutrophils # Seg Neutrophils # Man 13.3 H Lymphocytes # (Manual) Monocytes # (Manual) 1.1 H Eosinophils # (Manual) 0.7 H Basophils # (Manual) PT INR APTT Heparin Anti-Xa Level POC ABG pH POC ABG pCO2 POC ABG pO2 Sodium Potassium Chloride Carbon Dioxide BUN Creatinine Glucose POC Glucose 248 H 346 H Calcium Phosphorus Magnesium AST Alkaline Phosphatase C-Reactive Protein Total Protein Albumin Lipase Vitamin B12 TSH Urine WBC (Auto) Urine Chloride Urine Total Protein Vancomycin Trough Crossmatch 10/20/16 10/20/16 10/20/16 05:20 05:20 06:05 WBC RBC Hgb Hct MCV RDW Plt Count Lymph % (Auto) [place] % (Auto) [place] # Seg Neutrophils % Seg Neuts % (Manual) Lymphocytes % (Manual) Monocytes % (Manual) Basophils % (Manual) Nucleated RBC % Seg Neutrophils # Seg Neutrophils # Man Lymphocytes # (Manual) Monocytes # (Manual) Eosinophils # (Manual) Basophils # (Manual) PT INR APTT Heparin Anti-Xa Level 0.20 L POC ABG pH POC ABG pCO2 POC ABG pO2 Sodium Potassium Chloride Carbon Dioxide BUN 20 H Creatinine Glucose 374 H POC Glucose 337 H Calcium 8.3 L Phosphorus Magnesium AST Alkaline Phosphatase C-Reactive Protein Total Protein Albumin Lipase Vitamin B12 TSH Urine WBC (Auto) Urine Chloride Urine Total Protein Vancomycin Trough Crossmatch 10/20/16 10/20/16 10/20/16 11:49 13:59 17:56 WBC RBC Hgb Hct MCV RDW Plt Count Lymph % (Auto) [place] % (Auto) [place] # Seg Neutrophils % Seg Neuts % (Manual) Lymphocytes % (Manual) Monocytes % (Manual) Basophils % (Manual) Nucleated RBC % Seg Neutrophils # Seg Neutrophils # Man Lymphocytes # (Manual) Monocytes # (Manual) Eosinophils # (Manual) Basophils # (Manual) PT INR APTT Heparin Anti-Xa Level 2.00 H POC ABG pH POC ABG pCO2 POC ABG pO2 Sodium Potassium Chloride Carbon Dioxide BUN Creatinine Glucose POC Glucose 305 H 362 H Calcium Phosphorus Magnesium AST Alkaline Phosphatase C-Reactive Protein Total Protein Albumin Lipase Vitamin B12 TSH Urine WBC (Auto) Urine Chloride Urine Total Protein Vancomycin Trough Crossmatch 10/20/16 10/21/16 10/21/16 23:52 05:00 05:49 WBC 22.9 H RBC 2.49 L Hgb 7.7 L Hct 25.6 L MCV 103 H RDW Plt Count Lymph % (Auto) [place] % (Auto) [place] # Seg Neutrophils % Seg Neuts % (Manual) 94.0 H Lymphocytes % (Manual) 1.0 L Monocytes % (Manual) Basophils % (Manual) Nucleated RBC % Seg Neutrophils # Seg Neutrophils # Man 21.5 H Lymphocytes # (Manual) 0.2 L Monocytes # (Manual) 1.1 H Eosinophils # (Manual) Basophils # (Manual) PT INR APTT Heparin Anti-Xa Level POC ABG pH POC ABG pCO2 POC ABG pO2 Sodium Potassium Chloride Carbon Dioxide BUN Creatinine Glucose POC Glucose 252 H 180 H Calcium Phosphorus Magnesium AST Alkaline Phosphatase C-Reactive Protein Total Protein Albumin Lipase Vitamin B12 TSH Urine WBC (Auto) Urine Chloride Urine Total Protein Vancomycin Trough Crossmatch 10/21/16 10/21/16 10/21/16 11:47 11:49 14:10 WBC RBC Hgb Hct MCV RDW Plt Count Lymph % (Auto) [place] % (Auto) [place] # Seg Neutrophils % Seg Neuts % (Manual) Lymphocytes % (Manual) Monocytes % (Manual) Basophils % (Manual) Nucleated RBC % Seg Neutrophils # Seg Neutrophils # Man Lymphocytes # (Manual) Monocytes # (Manual) Eosinophils # (Manual) Basophils # (Manual) PT INR APTT Heparin Anti-Xa Level POC ABG pH POC ABG pCO2 POC ABG pO2 Sodium Potassium Chloride Carbon Dioxide BUN Creatinine Glucose POC Glucose 50 L 56 L 140 H Calcium Phosphorus Magnesium AST Alkaline Phosphatase C-Reactive Protein Total Protein Albumin Lipase Vitamin B12 TSH Urine WBC (Auto) Urine Chloride Urine Total Protein Vancomycin Trough Crossmatch 10/21/16 10/21/16 10/22/16 18:24 Unknown 00:07 WBC RBC Hgb Hct MCV RDW Plt Count Lymph % (Auto) [place] % (Auto) [place] # Seg Neutrophils % Seg Neuts % (Manual) Lymphocytes % (Manual) Monocytes % (Manual) Basophils % (Manual) Nucleated RBC % Seg Neutrophils # Seg Neutrophils # Man Lymphocytes # (Manual) Monocytes # (Manual) Eosinophils # (Manual) Basophils # (Manual) PT INR APTT Heparin Anti-Xa Level POC ABG pH POC ABG pCO2 POC ABG pO2 Sodium 150 H Potassium 3.1 L Chloride 112.4 H Carbon Dioxide BUN 25 H Creatinine 1.4 H Glucose POC Glucose 175 H 218 H Calcium 8.0 L Phosphorus Magnesium AST Alkaline Phosphatase C-Reactive Protein Total Protein Albumin Lipase Vitamin B12 TSH Urine WBC (Auto) Urine Chloride Urine Total Protein Vancomycin Trough Crossmatch 10/22/16 10/22/16 10/22/16 04:20 04:20 10:25 WBC 20.8 H RBC 2.37 L Hgb 7.5 L Hct 23.9 L MCV 101 H RDW Plt Count Lymph % (Auto) [place] % (Auto) [place] # Seg Neutrophils % Seg Neuts % (Manual) 89.0 H Lymphocytes % (Manual) 7.0 L Monocytes % (Manual) Basophils % (Manual) Nucleated RBC % Seg Neutrophils # Seg Neutrophils # Man 18.5 H Lymphocytes # (Manual) Monocytes # (Manual) Eosinophils # (Manual) Basophils # (Manual) 0.2 H PT INR APTT Heparin Anti-Xa Level POC ABG pH POC ABG pCO2 POC ABG pO2 Sodium 148 H Potassium 2.9 L* Chloride 109.4 H Carbon Dioxide BUN 26 H Creatinine Glucose 140 H POC Glucose Calcium 7.5 L Phosphorus Magnesium AST Alkaline Phosphatase C-Reactive Protein Total Protein Albumin Lipase Vitamin B12 976.8 H TSH Urine WBC (Auto) Urine Chloride Urine Total Protein Vancomycin Trough Crossmatch 10/22/16 10/22/16 10/22/16 10:25 14:50 18:16 WBC RBC Hgb Hct MCV RDW Plt Count Lymph % (Auto) [place] % (Auto) [place] # Seg Neutrophils % Seg Neuts % (Manual) Lymphocytes % (Manual) Monocytes % (Manual) Basophils % (Manual) Nucleated RBC % Seg Neutrophils # Seg Neutrophils # Man Lymphocytes # (Manual) Monocytes # (Manual) Eosinophils # (Manual) Basophils # (Manual) PT INR APTT Heparin Anti-Xa Level POC ABG pH POC ABG pCO2 POC ABG pO2 Sodium Potassium Chloride Carbon Dioxide BUN Creatinine Glucose POC Glucose 193 H Calcium Phosphorus Magnesium AST Alkaline Phosphatase C-Reactive Protein Total Protein Albumin Lipase Vitamin B12 TSH 0.143 L 0.162 L Urine WBC (Auto) Urine Chloride Urine Total Protein Vancomycin Trough Crossmatch 10/22/16 10/22/16 10/22/16 20:00 20:00 20:00 WBC 24.1 H RBC 2.58 L Hgb 8.2 L Hct 26.4 L MCV 102 H RDW Plt Count Lymph % (Auto) [place] % (Auto) [place] # Seg Neutrophils % Seg Neuts % (Manual) 74.0 H Lymphocytes % (Manual) 7.0 L Monocytes % (Manual) Basophils % (Manual) Nucleated RBC % Seg Neutrophils # Seg Neutrophils # Man 17.8 H Lymphocytes # (Manual) Monocytes # (Manual) Eosinophils # (Manual) Basophils # (Manual) PT INR APTT Heparin Anti-Xa Level 1.92 H POC ABG pH POC ABG pCO2 POC ABG pO2 Sodium Potassium Chloride Carbon Dioxide BUN Creatinine Glucose POC Glucose Calcium Phosphorus Magnesium AST Alkaline Phosphatase C-Reactive Protein Total Protein Albumin Lipase Vitamin B12 TSH Urine WBC (Auto) Urine Chloride Urine Total Protein Vancomycin Trough Crossmatch See Detail 10/23/16 10/23/16 10/23/16 00:21 06:09 12:07 WBC RBC Hgb Hct MCV RDW Plt Count Lymph % (Auto) [place] % (Auto) [place] # Seg Neutrophils % Seg Neuts % (Manual) Lymphocytes % (Manual) Monocytes % (Manual) Basophils % (Manual) Nucleated RBC % Seg Neutrophils # Seg Neutrophils # Man Lymphocytes # (Manual) Monocytes # (Manual) Eosinophils # (Manual) Basophils # (Manual) PT INR APTT Heparin Anti-Xa Level POC ABG pH POC ABG pCO2 POC ABG pO2 Sodium Potassium Chloride Carbon Dioxide BUN Creatinine Glucose POC Glucose 283 H 241 H 340 H Calcium Phosphorus Magnesium AST Alkaline Phosphatase C-Reactive Protein Total Protein Albumin Lipase Vitamin B12 TSH Urine WBC (Auto) Urine Chloride Urine Total Protein Vancomycin Trough Crossmatch 10/23/16 10/23/16 10/23/16 14:01 16:00 17:59 WBC RBC Hgb Hct MCV RDW Plt Count Lymph % (Auto) [place] % (Auto) [place] # Seg Neutrophils % Seg Neuts % (Manual) Lymphocytes % (Manual) Monocytes % (Manual) Basophils % (Manual) Nucleated RBC % Seg Neutrophils # Seg Neutrophils # Man Lymphocytes # (Manual) Monocytes # (Manual) Eosinophils # (Manual) Basophils # (Manual) PT INR APTT Heparin Anti-Xa Level 0.19 L POC ABG pH POC ABG pCO2 32.4 L POC ABG pO2 Sodium Potassium Chloride Carbon Dioxide BUN Creatinine Glucose POC Glucose 245 H Calcium Phosphorus Magnesium AST Alkaline Phosphatase C-Reactive Protein Total Protein Albumin Lipase Vitamin B12 TSH Urine WBC (Auto) Urine Chloride Urine Total Protein Vancomycin Trough Crossmatch 10/23/16 10/23/16 10/23/16 22:55 Unknown Unknown WBC 22.6 H RBC 3.26 L Hgb Hct MCV RDW 17.1 H Plt Count Lymph % (Auto) [place] % (Auto) [place] # Seg Neutrophils % Seg Neuts % (Manual) Lymphocytes % (Manual) 11.0 L Monocytes % (Manual) Basophils % (Manual) Nucleated RBC % Seg Neutrophils # Seg Neutrophils # Man 14.0 H Lymphocytes # (Manual) Monocytes # (Manual) Eosinophils # (Manual) Basophils # (Manual) PT INR APTT Heparin Anti-Xa Level 0.17 L 0.15 L POC ABG pH POC ABG pCO2 POC ABG pO2 Sodium Potassium Chloride Carbon Dioxide BUN Creatinine Glucose POC Glucose Calcium Phosphorus Magnesium AST Alkaline Phosphatase C-Reactive Protein Total Protein Albumin Lipase Vitamin B12 TSH Urine WBC (Auto) Urine Chloride Urine Total Protein Vancomycin Trough Crossmatch 10/23/16 10/24/16 10/24/16 Unknown 00:05 05:30 WBC RBC Hgb Hct MCV RDW Plt Count Lymph % (Auto) [place] % (Auto) [place] # Seg Neutrophils % Seg Neuts % (Manual) Lymphocytes % (Manual) Monocytes % (Manual) Basophils % (Manual) Nucleated RBC % Seg Neutrophils # Seg Neutrophils # Man Lymphocytes # (Manual) Monocytes # (Manual) Eosinophils # (Manual) Basophils # (Manual) PT INR APTT Heparin Anti-Xa Level 0.13 L POC ABG pH POC ABG pCO2 POC ABG pO2 Sodium Potassium Chloride 111.2 H Carbon Dioxide 20 L BUN 25 H Creatinine Glucose 227 H POC Glucose 118 H Calcium 7.1 L Phosphorus Magnesium AST Alkaline Phosphatase C-Reactive Protein Total Protein Albumin Lipase Vitamin B12 TSH Urine WBC (Auto) Urine Chloride Urine Total Protein Vancomycin Trough Crossmatch 10/24/16 10/24/16 10/24/16 11:00 11:00 12:06 WBC 17.6 H RBC 2.92 L Hgb 9.2 L Hct 28.3 L MCV RDW 16.9 H Plt Count Lymph % (Auto) [place] % (Auto) [place] # Seg Neutrophils % Seg Neuts % (Manual) Lymphocytes % (Manual) Monocytes % (Manual) Basophils % (Manual) Nucleated RBC % Seg Neutrophils # Seg Neutrophils # Man Lymphocytes # (Manual) Monocytes # (Manual) Eosinophils # (Manual) Basophils # (Manual) PT INR APTT Heparin Anti-Xa Level 0.27 L POC ABG pH POC ABG pCO2 POC ABG pO2 Sodium Potassium Chloride Carbon Dioxide BUN Creatinine Glucose POC Glucose 166 H Calcium Phosphorus Magnesium AST Alkaline Phosphatase C-Reactive Protein Total Protein Albumin Lipase Vitamin B12 TSH Urine WBC (Auto) Urine Chloride Urine Total Protein Vancomycin Trough Crossmatch 10/24/16 10/25/16 10/25/16 12:27 00:49 03:30 WBC RBC Hgb 8.8 L Hct 28.1 L MCV RDW Plt Count Lymph % (Auto) [place] % (Auto) [place] # Seg Neutrophils % Seg Neuts % (Manual) Lymphocytes % (Manual) Monocytes % (Manual) Basophils % (Manual) Nucleated RBC % Seg Neutrophils # Seg Neutrophils # Man Lymphocytes # (Manual) Monocytes # (Manual) Eosinophils # (Manual) Basophils # (Manual) PT INR APTT Heparin Anti-Xa Level POC ABG pH POC ABG pCO2 33.9 L POC ABG pO2 Sodium Potassium Chloride Carbon Dioxide BUN Creatinine Glucose POC Glucose 121 H Calcium Phosphorus Magnesium AST Alkaline Phosphatase C-Reactive Protein Total Protein Albumin Lipase Vitamin B12 TSH Urine WBC (Auto) Urine Chloride Urine Total Protein Vancomycin Trough Crossmatch 10/25/16 10/25/16 10/25/16 09:49 12:10 19:25 WBC 21.1 H RBC 3.02 L Hgb 9.3 L Hct 28.9 L MCV RDW 16.3 H Plt Count Lymph % (Auto) [place] % (Auto) [place] # Seg Neutrophils % Seg Neuts % (Manual) 81.0 H Lymphocytes % (Manual) 9.0 L Monocytes % (Manual) Basophils % (Manual) Nucleated RBC % Seg Neutrophils # Seg Neutrophils # Man 17.1 H Lymphocytes # (Manual) Monocytes # (Manual) Eosinophils # (Manual) Basophils # (Manual) PT INR APTT Heparin Anti-Xa Level POC ABG pH POC ABG pCO2 POC ABG pO2 Sodium Potassium Chloride Carbon Dioxide BUN Creatinine Glucose POC Glucose 158 H 151 H Calcium Phosphorus Magnesium AST Alkaline Phosphatase C-Reactive Protein Total Protein Albumin Lipase Vitamin B12 TSH Urine WBC (Auto) Urine Chloride Urine Total Protein Vancomycin Trough Crossmatch 10/26/16 10/26/16 10/26/16 00:20 01:09 05:02 WBC 22.2 H RBC 2.89 L Hgb 8.7 L Hct 27.8 L MCV RDW 16.4 H Plt Count Lymph % (Auto) [place] % (Auto) [place] # Seg Neutrophils % Seg Neuts % (Manual) Lymphocytes % (Manual) Monocytes % (Manual) Basophils % (Manual) Nucleated RBC % Seg Neutrophils # Seg Neutrophils # Man Lymphocytes # (Manual) Monocytes # (Manual) Eosinophils # (Manual) Basophils # (Manual) PT INR APTT Heparin Anti-Xa Level POC ABG pH POC ABG pCO2 POC ABG pO2 Sodium Potassium Chloride Carbon Dioxide BUN Creatinine Glucose POC Glucose 44 L 112 H Calcium Phosphorus Magnesium AST Alkaline Phosphatase C-Reactive Protein Total Protein Albumin Lipase Vitamin B12 TSH Urine WBC (Auto) Urine Chloride Urine Total Protein Vancomycin Trough Crossmatch 10/26/16 10/26/16 10/26/16 05:02 12:11 12:14 WBC RBC Hgb Hct MCV RDW Plt Count Lymph % (Auto) [place] % (Auto) [place] # Seg Neutrophils % Seg Neuts % (Manual) Lymphocytes % (Manual) Monocytes % (Manual) Basophils % (Manual) Nucleated RBC % Seg Neutrophils # Seg Neutrophils # Man Lymphocytes # (Manual) Monocytes # (Manual) Eosinophils # (Manual) Basophils # (Manual) PT INR APTT Heparin Anti-Xa Level POC ABG pH POC ABG pCO2 32.0 L POC ABG pO2 33 L Sodium Potassium 3.2 L D Chloride Carbon Dioxide 20 L BUN 24 H Creatinine Glucose 104 H POC Glucose 194 H Calcium 7.7 L Phosphorus Magnesium AST Alkaline Phosphatase C-Reactive Protein Total Protein Albumin Lipase Vitamin B12 TSH Urine WBC (Auto) Urine Chloride Urine Total Protein Vancomycin Trough Crossmatch 10/26/16 10/26/16 10/27/16 15:28 17:23 00:04 WBC RBC Hgb Hct MCV RDW Plt Count Lymph % (Auto) [place] % (Auto) [place] # Seg Neutrophils % Seg Neuts % (Manual) Lymphocytes % (Manual) Monocytes % (Manual) Basophils % (Manual) Nucleated RBC % Seg Neutrophils # Seg Neutrophils # Man Lymphocytes # (Manual) Monocytes # (Manual) Eosinophils # (Manual) Basophils # (Manual) PT INR APTT Heparin Anti-Xa Level POC ABG pH POC ABG pCO2 33.7 L POC ABG pO2 Sodium Potassium Chloride Carbon Dioxide BUN Creatinine Glucose POC Glucose 181 H 230 H Calcium Phosphorus Magnesium AST Alkaline Phosphatase C-Reactive Protein Total Protein Albumin Lipase Vitamin B12 TSH Urine WBC (Auto) Urine Chloride Urine Total Protein Vancomycin Trough Crossmatch 10/27/16 10/27/16 10/27/16 05:15 05:15 05:38 WBC 25.5 H RBC 3.07 L Hgb 9.4 L Hct 30.1 L MCV 98 H RDW 16.4 H Plt Count 527 H Lymph % (Auto) [place] % (Auto) [place] # Seg Neutrophils % Seg Neuts % (Manual) Lymphocytes % (Manual) Monocytes % (Manual) Basophils % (Manual) Nucleated RBC % Seg Neutrophils # Seg Neutrophils # Man Lymphocytes # (Manual) Monocytes # (Manual) Eosinophils # (Manual) Basophils # (Manual) PT INR APTT Heparin Anti-Xa Level POC ABG pH POC ABG pCO2 POC ABG pO2 Sodium Potassium Chloride Carbon Dioxide 19 L BUN 23 H Creatinine Glucose 160 H POC Glucose 168 H Calcium 8.0 L Phosphorus Magnesium AST Alkaline Phosphatase C-Reactive Protein Total Protein Albumin Lipase Vitamin B12 TSH Urine WBC (Auto) Urine Chloride Urine Total Protein Vancomycin Trough Crossmatch 10/27/16 10/27/16 10/27/16 11:59 18:35 23:48 WBC RBC Hgb Hct MCV RDW Plt Count Lymph % (Auto) [place] % (Auto) [place] # Seg Neutrophils % Seg Neuts % (Manual) Lymphocytes % (Manual) Monocytes % (Manual) Basophils % (Manual) Nucleated RBC % Seg Neutrophils # Seg Neutrophils # Man Lymphocytes # (Manual) Monocytes # (Manual) Eosinophils # (Manual) Basophils # (Manual) PT INR APTT Heparin Anti-Xa Level POC ABG pH POC ABG pCO2 POC ABG pO2 Sodium Potassium Chloride Carbon Dioxide BUN Creatinine Glucose POC Glucose 197 H 318 H 316 H Calcium Phosphorus Magnesium AST Alkaline Phosphatase C-Reactive Protein Total Protein Albumin Lipase Vitamin B12 TSH Urine WBC (Auto) Urine Chloride Urine Total Protein Vancomycin Trough Crossmatch 10/28/16 10/28/16 10/28/16 03:13 04:10 04:10 WBC 18.8 H RBC 2.64 L Hgb 8.1 L Hct 26.1 L MCV 99 H RDW 16.2 H Plt Count 544 H Lymph % (Auto) [place] % (Auto) [place] # Seg Neutrophils % Seg Neuts % (Manual) Lymphocytes % (Manual) Monocytes % (Manual) Basophils % (Manual) Nucleated RBC % Seg Neutrophils # Seg Neutrophils # Man Lymphocytes # (Manual) Monocytes # (Manual) Eosinophils # (Manual) Basophils # (Manual) PT INR APTT Heparin Anti-Xa Level POC ABG pH POC ABG pCO2 POC ABG pO2 Sodium Potassium Chloride Carbon Dioxide 21 L BUN 24 H Creatinine Glucose 302 H POC Glucose 304 H Calcium 7.7 L Phosphorus Magnesium AST Alkaline Phosphatase C-Reactive Protein Total Protein Albumin Lipase Vitamin B12 TSH Urine WBC (Auto) Urine Chloride Urine Total Protein Vancomycin Trough Crossmatch 10/28/16 10/28/16 10/28/16 04:10 12:36 18:27 WBC RBC Hgb Hct MCV RDW Plt Count Lymph % (Auto) [place] % (Auto) [place] # Seg Neutrophils % Seg Neuts % (Manual) Lymphocytes % (Manual) Monocytes % (Manual) Basophils % (Manual) Nucleated RBC % Seg Neutrophils # Seg Neutrophils # Man Lymphocytes # (Manual) Monocytes # (Manual) Eosinophils # (Manual) Basophils # (Manual) PT INR APTT Heparin Anti-Xa Level 0.20 L POC ABG pH POC ABG pCO2 POC ABG pO2 Sodium Potassium Chloride Carbon Dioxide BUN Creatinine Glucose POC Glucose 205 H 339 H Calcium Phosphorus Magnesium AST Alkaline Phosphatase C-Reactive Protein Total Protein Albumin Lipase Vitamin B12 TSH Urine WBC (Auto) Urine Chloride Urine Total Protein Vancomycin Trough Crossmatch 10/29/16 10/29/16 10/29/16 01:05 06:19 09:30 WBC 20.3 H RBC 2.80 L Hgb 8.5 L Hct 26.7 L MCV RDW 15.4 H Plt Count 571 H Lymph % (Auto) [place] % (Auto) [place] # Seg Neutrophils % Seg Neuts % (Manual) 75.0 H Lymphocytes % (Manual) 4.0 L Monocytes % (Manual) Basophils % (Manual) Nucleated RBC % Seg Neutrophils # Seg Neutrophils # Man 15.2 H Lymphocytes # (Manual) 0.8 L Monocytes # (Manual) Eosinophils # (Manual) Basophils # (Manual) PT INR APTT Heparin Anti-Xa Level POC ABG pH POC ABG pCO2 POC ABG pO2 Sodium Potassium Chloride Carbon Dioxide BUN Creatinine Glucose POC Glucose 275 H 179 H Calcium Phosphorus Magnesium AST Alkaline Phosphatase C-Reactive Protein Total Protein Albumin Lipase Vitamin B12 TSH Urine WBC (Auto) Urine Chloride Urine Total Protein Vancomycin Trough Crossmatch 10/29/16 10/29/16 10/29/16 11:46 15:18 17:55 WBC RBC Hgb Hct MCV RDW Plt Count Lymph % (Auto) [place] % (Auto) [place] # Seg Neutrophils % Seg Neuts % (Manual) Lymphocytes % (Manual) Monocytes % (Manual) Basophils % (Manual) Nucleated RBC % Seg Neutrophils # Seg Neutrophils # Man Lymphocytes # (Manual) Monocytes # (Manual) Eosinophils # (Manual) Basophils # (Manual) PT INR APTT Heparin Anti-Xa Level 1.15 H POC ABG pH POC ABG pCO2 POC ABG pO2 Sodium Potassium Chloride Carbon Dioxide BUN Creatinine Glucose POC Glucose 122 H 255 H Calcium Phosphorus Magnesium AST Alkaline Phosphatase C-Reactive Protein Total Protein Albumin Lipase Vitamin B12 TSH Urine WBC (Auto) Urine Chloride Urine Total Protein Vancomycin Trough Crossmatch 10/30/16 10/30/16 10/30/16 00:10 05:30 05:30 WBC 19.8 H RBC 2.51 L Hgb 7.7 L Hct 24.1 L MCV RDW 15.5 H Plt Count 534 H Lymph % (Auto) [place] % (Auto) [place] # Seg Neutrophils % Seg Neuts % (Manual) Lymphocytes % (Manual) Monocytes % (Manual) Basophils % (Manual) Nucleated RBC % Seg Neutrophils # Seg Neutrophils # Man Lymphocytes # (Manual) Monocytes # (Manual) Eosinophils # (Manual) Basophils # (Manual) PT INR APTT Heparin Anti-Xa Level POC ABG pH POC ABG pCO2 POC ABG pO2 Sodium Potassium Chloride Carbon Dioxide BUN Creatinine Glucose 211 H POC Glucose 202 H Calcium 7.4 L Phosphorus Magnesium AST Alkaline Phosphatase C-Reactive Protein Total Protein Albumin Lipase Vitamin B12 TSH Urine WBC (Auto) Urine Chloride Urine Total Protein Vancomycin Trough Crossmatch 10/30/16 10/30/16 10/30/16 06:32 12:51 17:47 WBC RBC Hgb Hct MCV RDW Plt Count Lymph % (Auto) [place] % (Auto) [place] # Seg Neutrophils % Seg Neuts % (Manual) Lymphocytes % (Manual) Monocytes % (Manual) Basophils % (Manual) Nucleated RBC % Seg Neutrophils # Seg Neutrophils # Man Lymphocytes # (Manual) Monocytes # (Manual) Eosinophils # (Manual) Basophils # (Manual) PT INR APTT Heparin Anti-Xa Level POC ABG pH POC ABG pCO2 POC ABG pO2 Sodium Potassium Chloride Carbon Dioxide BUN Creatinine Glucose POC Glucose 207 H 218 H 169 H Calcium Phosphorus Magnesium AST Alkaline Phosphatase C-Reactive Protein Total Protein Albumin Lipase Vitamin B12 TSH Urine WBC (Auto) Urine Chloride Urine Total Protein Vancomycin Trough Crossmatch 10/30/16 10/31/16 10/31/16 23:59 05:25 11:21 WBC RBC Hgb Hct MCV RDW Plt Count Lymph % (Auto) [place] % (Auto) [place] # Seg Neutrophils % Seg Neuts % (Manual) Lymphocytes % (Manual) Monocytes % (Manual) Basophils % (Manual) Nucleated RBC % Seg Neutrophils # Seg Neutrophils # Man Lymphocytes # (Manual) Monocytes # (Manual) Eosinophils # (Manual) Basophils # (Manual) PT INR APTT Heparin Anti-Xa Level POC ABG pH POC ABG pCO2 POC ABG pO2 Sodium Potassium Chloride Carbon Dioxide BUN Creatinine Glucose POC Glucose 138 H 127 H 132 H Calcium Phosphorus Magnesium AST Alkaline Phosphatase C-Reactive Protein Total Protein Albumin Lipase Vitamin B12 TSH Urine WBC (Auto) Urine Chloride Urine Total Protein Vancomycin Trough Crossmatch 10/31/16 10/31/16 11/01/16 17:07 23:54 05:47 WBC RBC Hgb Hct MCV RDW Plt Count Lymph % (Auto) [place] % (Auto) [place] # Seg Neutrophils % Seg Neuts % (Manual) Lymphocytes % (Manual) Monocytes % (Manual) Basophils % (Manual) Nucleated RBC % Seg Neutrophils # Seg Neutrophils # Man Lymphocytes # (Manual) Monocytes # (Manual) Eosinophils # (Manual) Basophils # (Manual) PT INR APTT Heparin Anti-Xa Level POC ABG pH POC ABG pCO2 POC ABG pO2 Sodium Potassium Chloride Carbon Dioxide BUN Creatinine Glucose POC Glucose 138 H 153 H 150 H Calcium Phosphorus Magnesium AST Alkaline Phosphatase C-Reactive Protein Total Protein Albumin Lipase Vitamin B12 TSH Urine WBC (Auto) Urine Chloride Urine Total Protein Vancomycin Trough Crossmatch 11/01/16 11/01/16 11/01/16 06:33 06:33 12:16 WBC 19.2 H RBC 2.51 L Hgb 7.9 L Hct 24.8 L MCV 99 H D RDW 16.1 H Plt Count 569 H Lymph % (Auto) [place] % (Auto) [place] # Seg Neutrophils % Seg Neuts % (Manual) Lymphocytes % (Manual) Monocytes % (Manual) Basophils % (Manual) Nucleated RBC % Seg Neutrophils # Seg Neutrophils # Man Lymphocytes # (Manual) Monocytes # (Manual) Eosinophils # (Manual) Basophils # (Manual) PT INR APTT Heparin Anti-Xa Level POC ABG pH POC ABG pCO2 POC ABG pO2 Sodium Potassium 3.5 L Chloride Carbon Dioxide 21 L BUN Creatinine Glucose 137 H POC Glucose 125 H Calcium 7.7 L Phosphorus Magnesium AST Alkaline Phosphatase 148 H C-Reactive Protein Total Protein 6.2 L Albumin 2.0 L Lipase Vitamin B12 TSH Urine WBC (Auto) Urine Chloride Urine Total Protein Vancomycin Trough Crossmatch 11/01/16 11/02/16 11/02/16 17:37 00:05 04:15 WBC RBC Hgb Hct MCV RDW Plt Count Lymph % (Auto) [place] % (Auto) [place] # Seg Neutrophils % Seg Neuts % (Manual) Lymphocytes % (Manual) Monocytes % (Manual) Basophils % (Manual) Nucleated RBC % Seg Neutrophils # Seg Neutrophils # Man Lymphocytes # (Manual) Monocytes # (Manual) Eosinophils # (Manual) Basophils # (Manual) PT INR APTT Heparin Anti-Xa Level < 0.10 L POC ABG pH POC ABG pCO2 POC ABG pO2 Sodium Potassium 3.2 L Chloride Carbon Dioxide BUN 6 L Creatinine Glucose 135 H POC Glucose 164 H Calcium 7.5 L Phosphorus Magnesium AST Alkaline Phosphatase 132 H C-Reactive Protein Total Protein 6.2 L Albumin 1.8 L Lipase Vitamin B12 TSH Urine WBC (Auto) Urine Chloride Urine Total Protein Vancomycin Trough Crossmatch 11/02/16 11/02/16 11/02/16 04:15 05:54 12:15 WBC 17.7 H RBC 2.43 L Hgb 7.6 L Hct 23.5 L MCV RDW 15.9 H Plt Count 502 H Lymph % (Auto) [place] % (Auto) [place] # Seg Neutrophils % Seg Neuts % (Manual) 84.0 H Lymphocytes % (Manual) 11.0 L Monocytes % (Manual) Basophils % (Manual) Nucleated RBC % 1.0 H Seg Neutrophils # Seg Neutrophils # Man 14.9 H Lymphocytes # (Manual) Monocytes # (Manual) Eosinophils # (Manual) Basophils # (Manual) PT INR APTT Heparin Anti-Xa Level POC ABG pH POC ABG pCO2 POC ABG pO2 Sodium Potassium Chloride Carbon Dioxide BUN Creatinine Glucose POC Glucose 152 H 137 H Calcium Phosphorus Magnesium AST Alkaline Phosphatase C-Reactive Protein Total Protein Albumin Lipase Vitamin B12 TSH Urine WBC (Auto) Urine Chloride Urine Total Protein Vancomycin Trough Crossmatch 11/02/16 11/03/16 11/03/16 17:00 00:05 00:05 WBC RBC Hgb Hct MCV RDW Plt Count Lymph % (Auto) [place] % (Auto) [place] # Seg Neutrophils % Seg Neuts % (Manual) Lymphocytes % (Manual) Monocytes % (Manual) Basophils % (Manual) Nucleated RBC % Seg Neutrophils # Seg Neutrophils # Man Lymphocytes # (Manual) Monocytes # (Manual) Eosinophils # (Manual) Basophils # (Manual) PT INR APTT Heparin Anti-Xa Level POC ABG pH POC ABG pCO2 POC ABG pO2 Sodium Potassium Chloride Carbon Dioxide 20 L BUN 5 L Creatinine Glucose 139 H POC Glucose 161 H Calcium 6.7 L Phosphorus Magnesium 1.2 L AST Alkaline Phosphatase C-Reactive Protein Total Protein Albumin Lipase Vitamin B12 TSH Urine WBC (Auto) Urine Chloride Urine Total Protein Vancomycin Trough Crossmatch 11/03/16 11/03/16 11/03/16 00:05 02:05 04:23 WBC 15.9 H 14.0 H RBC 1.93 L 2.38 L Hgb 5.9 L* 7.3 L Hct 18.9 L* 23.1 L MCV 98 H RDW 15.9 H 15.9 H Plt Count Lymph % (Auto) [place] % (Auto) [place] # Seg Neutrophils % Seg Neuts % (Manual) 85.0 H Lymphocytes % (Manual) 4.0 L Monocytes % (Manual) Basophils % (Manual) Nucleated RBC % Seg Neutrophils # Seg Neutrophils # Man 13.5 H Lymphocytes # (Manual) 0.6 L Monocytes # (Manual) Eosinophils # (Manual) Basophils # (Manual) PT INR APTT Heparin Anti-Xa Level POC ABG pH POC ABG pCO2 POC ABG pO2 Sodium Potassium Chloride Carbon Dioxide BUN 5 L Creatinine Glucose 127 H POC Glucose Calcium 7.2 L Phosphorus Magnesium AST Alkaline Phosphatase C-Reactive Protein Total Protein 5.8 L Albumin 1.5 L Lipase Vitamin B12 TSH Urine WBC (Auto) Urine Chloride Urine Total Protein Vancomycin Trough Crossmatch 11/03/16 11/03/16 11/03/16 09:14 09:27 11:54 WBC RBC Hgb Hct MCV RDW Plt Count Lymph % (Auto) [place] % (Auto) [place] # Seg Neutrophils % Seg Neuts % (Manual) Lymphocytes % (Manual) Monocytes % (Manual) Basophils % (Manual) Nucleated RBC % Seg Neutrophils # Seg Neutrophils # Man Lymphocytes # (Manual) Monocytes # (Manual) Eosinophils # (Manual) Basophils # (Manual) PT INR APTT Heparin Anti-Xa Level 0.11 L POC ABG pH POC ABG pCO2 POC ABG pO2 Sodium Potassium Chloride Carbon Dioxide BUN 5 L Creatinine Glucose 111 H POC Glucose 139 H Calcium 6.7 L Phosphorus Magnesium AST Alkaline Phosphatase C-Reactive Protein Total Protein Albumin Lipase Vitamin B12 TSH Urine WBC (Auto) Urine Chloride Urine Total Protein Vancomycin Trough Crossmatch 11/03/16 11/03/16 11/03/16 16:26 18:01 18:01 WBC RBC Hgb Hct MCV RDW Plt Count Lymph % (Auto) [place] % (Auto) [place] # Seg Neutrophils % Seg Neuts % (Manual) Lymphocytes % (Manual) Monocytes % (Manual) Basophils % (Manual) Nucleated RBC % Seg Neutrophils # Seg Neutrophils # Man Lymphocytes # (Manual) Monocytes # (Manual) Eosinophils # (Manual) Basophils # (Manual) PT INR APTT Heparin Anti-Xa Level 2.00 H POC ABG pH POC ABG pCO2 POC ABG pO2 Sodium Potassium Chloride Carbon Dioxide BUN Creatinine Glucose POC Glucose 142 H Calcium Phosphorus Magnesium AST Alkaline Phosphatase C-Reactive Protein Total Protein Albumin Lipase Vitamin B12 TSH Urine WBC (Auto) Urine Chloride Urine Total Protein Vancomycin Trough Crossmatch See Detail 11/04/16 11/04/16 11/04/16 02:15 02:15 06:35 WBC 11.8 H RBC 2.39 L Hgb 7.4 L Hct 23.1 L MCV RDW 15.9 H Plt Count Lymph % (Auto) [place] % (Auto) [place] # Seg Neutrophils % Seg Neuts % (Manual) 76.0 H Lymphocytes % (Manual) 12.0 L Monocytes % (Manual) 9.0 H Basophils % (Manual) Nucleated RBC % Seg Neutrophils # Seg Neutrophils # Man 9.0 H Lymphocytes # (Manual) Monocytes # (Manual) 1.1 H Eosinophils # (Manual) Basophils # (Manual) PT INR APTT Heparin Anti-Xa Level < 0.10 L POC ABG pH POC ABG pCO2 POC ABG pO2 Sodium Potassium Chloride Carbon Dioxide 21 L BUN 5 L Creatinine Glucose 112 H POC Glucose Calcium 6.8 L Phosphorus Magnesium AST Alkaline Phosphatase C-Reactive Protein Total Protein 5.7 L Albumin 1.7 L Lipase Vitamin B12 TSH Urine WBC (Auto) Urine Chloride Urine Total Protein Vancomycin Trough Crossmatch 11/04/16 11/04/16 11/04/16 10:51 12:58 15:04 WBC RBC Hgb Hct MCV RDW Plt Count Lymph % (Auto) [place] % (Auto) [place] # Seg Neutrophils % Seg Neuts % (Manual) Lymphocytes % (Manual) Monocytes % (Manual) Basophils % (Manual) Nucleated RBC % Seg Neutrophils # Seg Neutrophils # Man Lymphocytes # (Manual) Monocytes # (Manual) Eosinophils # (Manual) Basophils # (Manual) PT INR APTT Heparin Anti-Xa Level 1.05 H POC ABG pH POC ABG pCO2 33.7 L POC ABG pO2 60 L Sodium Potassium Chloride Carbon Dioxide BUN Creatinine Glucose POC Glucose 118 H Calcium Phosphorus Magnesium AST Alkaline Phosphatase C-Reactive Protein Total Protein Albumin Lipase Vitamin B12 TSH Urine WBC (Auto) Urine Chloride Urine Total Protein Vancomycin Trough Crossmatch 11/04/16 11/04/16 11/05/16 17:20 20:31 02:30 WBC RBC Hgb Hct MCV RDW Plt Count Lymph % (Auto) [place] % (Auto) [place] # Seg Neutrophils % Seg Neuts % (Manual) Lymphocytes % (Manual) Monocytes % (Manual) Basophils % (Manual) Nucleated RBC % Seg Neutrophils # Seg Neutrophils # Man Lymphocytes # (Manual) Monocytes # (Manual) Eosinophils # (Manual) Basophils # (Manual) PT INR APTT Heparin Anti-Xa Level POC ABG pH POC ABG pCO2 POC ABG pO2 Sodium Potassium 3.5 L Chloride Carbon Dioxide 18 L BUN 5 L Creatinine 0.6 L Glucose 110 H POC Glucose 228 H 169 H Calcium 7.1 L Phosphorus Magnesium AST Alkaline Phosphatase C-Reactive Protein Total Protein Albumin 1.9 L Lipase Vitamin B12 TSH Urine WBC (Auto) Urine Chloride Urine Total Protein Vancomycin Trough Crossmatch 11/05/16 11/05/16 11/05/16 02:30 17:52 21:07 WBC 14.1 H RBC Hgb Hct MCV RDW 16.7 H Plt Count Lymph % (Auto) [place] % (Auto) [place] # Seg Neutrophils % Seg Neuts % (Manual) 80.0 H Lymphocytes % (Manual) 6.0 L Monocytes % (Manual) 8.0 H Basophils % (Manual) Nucleated RBC % Seg Neutrophils # Seg Neutrophils # Man 11.3 H Lymphocytes # (Manual) 0.8 L Monocytes # (Manual) 1.1 H Eosinophils # (Manual) Basophils # (Manual) PT INR APTT Heparin Anti-Xa Level < 0.10 L POC ABG pH POC ABG pCO2 POC ABG pO2 Sodium Potassium Chloride Carbon Dioxide BUN Creatinine Glucose POC Glucose 174 H Calcium Phosphorus Magnesium AST Alkaline Phosphatase C-Reactive Protein Total Protein Albumin Lipase Vitamin B12 TSH Urine WBC (Auto) Urine Chloride Urine Total Protein Vancomycin Trough Crossmatch 11/05/16 11/06/16 11/06/16 23:30 05:00 05:00 WBC 15.2 H RBC 3.29 L Hgb 10.0 L Hct MCV RDW 16.9 H Plt Count Lymph % (Auto) [place] % (Auto) [place] # Seg Neutrophils % Seg Neuts % (Manual) Lymphocytes % (Manual) Monocytes % (Manual) Basophils % (Manual) Nucleated RBC % Seg Neutrophils # Seg Neutrophils # Man Lymphocytes # (Manual) Monocytes # (Manual) Eosinophils # (Manual) Basophils # (Manual) PT INR APTT Heparin Anti-Xa Level 0.94 H POC ABG pH POC ABG pCO2 POC ABG pO2 Sodium Potassium Chloride Carbon Dioxide BUN Creatinine Glucose POC Glucose 131 H Calcium Phosphorus Magnesium AST Alkaline Phosphatase C-Reactive Protein Total Protein Albumin Lipase Vitamin B12 TSH Urine WBC (Auto) Urine Chloride Urine Total Protein Vancomycin Trough Crossmatch 11/06/16 11/06/16 11/06/16 05:00 11:45 18:23 WBC RBC Hgb Hct MCV RDW Plt Count Lymph % (Auto) [place] % (Auto) [place] # Seg Neutrophils % Seg Neuts % (Manual) Lymphocytes % (Manual) Monocytes % (Manual) Basophils % (Manual) Nucleated RBC % Seg Neutrophils # Seg Neutrophils # Man Lymphocytes # (Manual) Monocytes # (Manual) Eosinophils # (Manual) Basophils # (Manual) PT INR APTT Heparin Anti-Xa Level POC ABG pH POC ABG pCO2 POC ABG pO2 Sodium Potassium 3.5 L Chloride 107.1 H Carbon Dioxide 20 L BUN 4 L Creatinine 0.6 L Glucose 104 H POC Glucose 141 H 255 H Calcium 6.7 L Phosphorus Magnesium AST Alkaline Phosphatase C-Reactive Protein Total Protein Albumin Lipase Vitamin B12 TSH Urine WBC (Auto) Urine Chloride Urine Total Protein Vancomycin Trough Crossmatch 11/06/16 11/06/16 11/07/16 22:07 23:07 11:41 WBC RBC Hgb Hct MCV RDW Plt Count Lymph % (Auto) [place] % (Auto) [place] # Seg Neutrophils % Seg Neuts % (Manual) Lymphocytes % (Manual) Monocytes % (Manual) Basophils % (Manual) Nucleated RBC % Seg Neutrophils # Seg Neutrophils # Man Lymphocytes # (Manual) Monocytes # (Manual) Eosinophils # (Manual) Basophils # (Manual) PT INR APTT Heparin Anti-Xa Level 0.80 H POC ABG pH POC ABG pCO2 POC ABG pO2 Sodium Potassium Chloride Carbon Dioxide BUN Creatinine Glucose POC Glucose 183 H 132 H Calcium Phosphorus Magnesium AST Alkaline Phosphatase C-Reactive Protein Total Protein Albumin Lipase Vitamin B12 TSH Urine WBC (Auto) Urine Chloride Urine Total Protein Vancomycin Trough Crossmatch 11/07/16 11/07/16 11/07/16 12:17 17:05 17:58 WBC RBC Hgb Hct MCV RDW Plt Count Lymph % (Auto) [place] % (Auto) [place] # Seg Neutrophils % Seg Neuts % (Manual) Lymphocytes % (Manual) Monocytes % (Manual) Basophils % (Manual) Nucleated RBC % Seg Neutrophils # Seg Neutrophils # Man Lymphocytes # (Manual) Monocytes # (Manual) Eosinophils # (Manual) Basophils # (Manual) PT INR APTT Heparin Anti-Xa Level 0.87 H POC ABG pH 7.324 L POC ABG pCO2 POC ABG pO2 Sodium Potassium Chloride Carbon Dioxide BUN Creatinine Glucose POC Glucose 158 H Calcium Phosphorus Magnesium AST Alkaline Phosphatase C-Reactive Protein Total Protein Albumin Lipase Vitamin B12 TSH Urine WBC (Auto) Urine Chloride Urine Total Protein Vancomycin Trough Crossmatch 11/07/16 11/07/16 11/07/16 23:26 Unknown Unknown WBC 12.3 H RBC 2.96 L Hgb 9.1 L Hct 27.9 L MCV RDW 16.8 H Plt Count Lymph % (Auto) [place] % (Auto) [place] # Seg Neutrophils % Seg Neuts % (Manual) 80.0 H Lymphocytes % (Manual) 7.0 L Monocytes % (Manual) Basophils % (Manual) Nucleated RBC % Seg Neutrophils # Seg Neutrophils # Man 9.8 H Lymphocytes # (Manual) 0.9 L Monocytes # (Manual) Eosinophils # (Manual) Basophils # (Manual) PT INR APTT Heparin Anti-Xa Level POC ABG pH POC ABG pCO2 POC ABG pO2 Sodium Potassium Chloride Carbon Dioxide 19 L BUN Creatinine Glucose 106 H POC Glucose 130 H Calcium 6.9 L Phosphorus Magnesium AST Alkaline Phosphatase C-Reactive Protein Total Protein Albumin Lipase Vitamin B12 TSH Urine WBC (Auto) Urine Chloride Urine Total Protein Vancomycin Trough Crossmatch 11/07/16 11/08/16 11/08/16 Unknown 05:14 05:20 WBC 12.4 H RBC 3.04 L Hgb 9.2 L Hct 28.8 L MCV RDW 16.6 H Plt Count Lymph % (Auto) [place] % (Auto) [place] # Seg Neutrophils % Seg Neuts % (Manual) 77.0 H Lymphocytes % (Manual) 5.0 L Monocytes % (Manual) Basophils % (Manual) 2.0 H Nucleated RBC % Seg Neutrophils # Seg Neutrophils # Man 9.5 H Lymphocytes # (Manual) 0.6 L Monocytes # (Manual) Eosinophils # (Manual) Basophils # (Manual) 0.2 H PT INR APTT Heparin Anti-Xa Level 0.90 H POC ABG pH POC ABG pCO2 POC ABG pO2 Sodium Potassium Chloride Carbon Dioxide BUN Creatinine Glucose POC Glucose 204 H Calcium Phosphorus Magnesium AST Alkaline Phosphatase C-Reactive Protein Total Protein Albumin Lipase Vitamin B12 TSH Urine WBC (Auto) Urine Chloride Urine Total Protein Vancomycin Trough Crossmatch 11/08/16 11/08/16 11/08/16 05:20 12:10 13:10 WBC RBC Hgb Hct MCV RDW Plt Count Lymph % (Auto) [place] % (Auto) [place] # Seg Neutrophils % Seg Neuts % (Manual) Lymphocytes % (Manual) Monocytes % (Manual) Basophils % (Manual) Nucleated RBC % Seg Neutrophils # Seg Neutrophils # Man Lymphocytes # (Manual) Monocytes # (Manual) Eosinophils # (Manual) Basophils # (Manual) PT INR APTT Heparin Anti-Xa Level POC ABG pH POC ABG pCO2 33.7 L POC ABG pO2 Sodium 136 L Potassium Chloride Carbon Dioxide 19 L BUN Creatinine Glucose 192 H POC Glucose 180 H Calcium 7.1 L Phosphorus Magnesium AST Alkaline Phosphatase C-Reactive Protein Total Protein Albumin Lipase Vitamin B12 TSH Urine WBC (Auto) Urine Chloride Urine Total Protein Vancomycin Trough Crossmatch 11/08/16 11/08/16 11/08/16 17:26 20:45 23:34 WBC RBC Hgb Hct MCV RDW Plt Count Lymph % (Auto) [place] % (Auto) [place] # Seg Neutrophils % Seg Neuts % (Manual) Lymphocytes % (Manual) Monocytes % (Manual) Basophils % (Manual) Nucleated RBC % Seg Neutrophils # Seg Neutrophils # Man Lymphocytes # (Manual) Monocytes # (Manual) Eosinophils # (Manual) Basophils # (Manual) PT INR APTT Heparin Anti-Xa Level POC ABG pH POC ABG pCO2 POC ABG pO2 Sodium Potassium Chloride Carbon Dioxide BUN Creatinine Glucose POC Glucose 187 H 178 H Calcium Phosphorus Magnesium AST Alkaline Phosphatase C-Reactive Protein Total Protein Albumin Lipase Vitamin B12 TSH Urine WBC (Auto) Urine Chloride Urine Total Protein Vancomycin Trough 35.4 H Crossmatch 11/09/16 11/09/16 11/09/16 05:30 05:30 05:59 WBC 11.5 H RBC 2.96 L Hgb 9.2 L Hct 28.2 L MCV RDW 16.4 H Plt Count Lymph % (Auto) [place] % (Auto) [place] # Seg Neutrophils % Seg Neuts % (Manual) 76.0 H Lymphocytes % (Manual) 2.0 L Monocytes % (Manual) Basophils % (Manual) Nucleated RBC % Seg Neutrophils # Seg Neutrophils # Man 8.7 H Lymphocytes # (Manual) 0.2 L Monocytes # (Manual) Eosinophils # (Manual) Basophils # (Manual) PT INR APTT Heparin Anti-Xa Level POC ABG pH POC ABG pCO2 POC ABG pO2 Sodium Potassium 3.4 L Chloride 107.6 H Carbon Dioxide 19 L BUN Creatinine 0.6 L Glucose 207 H POC Glucose 263 H Calcium 7.3 L Phosphorus Magnesium AST Alkaline Phosphatase C-Reactive Protein Total Protein Albumin Lipase Vitamin B12 TSH Urine WBC (Auto) Urine Chloride Urine Total Protein Vancomycin Trough Crossmatch 11/09/16 11/09/16 11/09/16 11:49 15:24 18:04 WBC RBC Hgb Hct MCV RDW Plt Count Lymph % (Auto) [place] % (Auto) [place] # Seg Neutrophils % Seg Neuts % (Manual) Lymphocytes % (Manual) Monocytes % (Manual) Basophils % (Manual) Nucleated RBC % Seg Neutrophils # Seg Neutrophils # Man Lymphocytes # (Manual) Monocytes # (Manual) Eosinophils # (Manual) Basophils # (Manual) PT INR APTT Heparin Anti-Xa Level POC ABG pH POC ABG pCO2 33.8 L POC ABG pO2 131 H Sodium Potassium Chloride Carbon Dioxide BUN Creatinine Glucose POC Glucose 269 H 242 H Calcium Phosphorus Magnesium AST Alkaline Phosphatase C-Reactive Protein Total Protein Albumin Lipase Vitamin B12 TSH Urine WBC (Auto) Urine Chloride Urine Total Protein Vancomycin Trough Crossmatch 11/09/16 11/10/16 11/10/16 22:57 04:30 04:30 WBC 15.7 H RBC 3.17 L Hgb 9.7 L Hct 30.2 L MCV RDW 16.2 H Plt Count Lymph % (Auto) [place] % (Auto) [place] # Seg Neutrophils % Seg Neuts % (Manual) Lymphocytes % (Manual) Monocytes % (Manual) Basophils % (Manual) Nucleated RBC % Seg Neutrophils # Seg Neutrophils # Man 8.5 H Lymphocytes # (Manual) Monocytes # (Manual) Eosinophils # (Manual) 0.5 H Basophils # (Manual) PT INR APTT Heparin Anti-Xa Level POC ABG pH POC ABG pCO2 POC ABG pO2 Sodium Potassium Chloride Carbon Dioxide 19 L BUN Creatinine 0.6 L Glucose 199 H POC Glucose 239 H Calcium 7.8 L Phosphorus Magnesium AST Alkaline Phosphatase C-Reactive Protein Total Protein Albumin Lipase Vitamin B12 TSH Urine WBC (Auto) Urine Chloride Urine Total Protein Vancomycin Trough Crossmatch 11/10/16 11/10/16 11/10/16 04:30 11:32 16:00 WBC RBC Hgb Hct MCV RDW Plt Count Lymph % (Auto) [place] % (Auto) [place] # Seg Neutrophils % Seg Neuts % (Manual) Lymphocytes % (Manual) Monocytes % (Manual) Basophils % (Manual) Nucleated RBC % Seg Neutrophils # Seg Neutrophils # Man Lymphocytes # (Manual) Monocytes # (Manual) Eosinophils # (Manual) Basophils # (Manual) PT INR APTT Heparin Anti-Xa Level 1.09 H < 0.10 L POC ABG pH POC ABG pCO2 POC ABG pO2 Sodium Potassium Chloride Carbon Dioxide BUN Creatinine Glucose POC Glucose 211 H Calcium Phosphorus Magnesium AST Alkaline Phosphatase C-Reactive Protein Total Protein Albumin Lipase Vitamin B12 TSH Urine WBC (Auto) Urine Chloride Urine Total Protein Vancomycin Trough Crossmatch 11/10/16 11/10/16 11/10/16 17:39 18:00 23:06 WBC RBC Hgb Hct MCV RDW Plt Count Lymph % (Auto) [place] % (Auto) [place] # Seg Neutrophils % Seg Neuts % (Manual) Lymphocytes % (Manual) Monocytes % (Manual) Basophils % (Manual) Nucleated RBC % Seg Neutrophils # Seg Neutrophils # Man Lymphocytes # (Manual) Monocytes # (Manual) Eosinophils # (Manual) Basophils # (Manual) PT INR APTT Heparin Anti-Xa Level 0.85 H POC ABG pH POC ABG pCO2 POC ABG pO2 Sodium Potassium Chloride Carbon Dioxide BUN Creatinine Glucose POC Glucose 249 H 220 H Calcium Phosphorus Magnesium AST Alkaline Phosphatase C-Reactive Protein Total Protein Albumin Lipase Vitamin B12 TSH Urine WBC (Auto) Urine Chloride Urine Total Protein Vancomycin Trough Crossmatch 11/11/16 11/11/16 11/11/16 05:56 06:15 06:15 WBC 13.3 H RBC 2.87 L Hgb 8.7 L Hct 27.2 L MCV RDW 16.4 H Plt Count Lymph % (Auto) [place] % (Auto) [place] # 0.9 H Seg Neutrophils % 78.9 H Seg Neuts % (Manual) Lymphocytes % (Manual) Monocytes % (Manual) Basophils % (Manual) Nucleated RBC % Seg Neutrophils # 10.5 H Seg Neutrophils # Man Lymphocytes # (Manual) Monocytes # (Manual) Eosinophils # (Manual) Basophils # (Manual) PT INR APTT Heparin Anti-Xa Level POC ABG pH POC ABG pCO2 POC ABG pO2 Sodium Potassium 3.2 L Chloride Carbon Dioxide 19 L BUN Creatinine Glucose POC Glucose 117 H Calcium 7.6 L Phosphorus Magnesium AST Alkaline Phosphatase C-Reactive Protein Total Protein Albumin Lipase Vitamin B12 TSH Urine WBC (Auto) Urine Chloride Urine Total Protein Vancomycin Trough Crossmatch 11/11/16 11/11/16 11/11/16 12:26 16:58 17:33 WBC RBC Hgb Hct MCV RDW Plt Count Lymph % (Auto) [place] % (Auto) [place] # Seg Neutrophils % Seg Neuts % (Manual) Lymphocytes % (Manual) Monocytes % (Manual) Basophils % (Manual) Nucleated RBC % Seg Neutrophils # Seg Neutrophils # Man Lymphocytes # (Manual) Monocytes # (Manual) Eosinophils # (Manual) Basophils # (Manual) PT INR APTT Heparin Anti-Xa Level < 0.10 L POC ABG pH POC ABG pCO2 POC ABG pO2 Sodium Potassium Chloride Carbon Dioxide BUN Creatinine Glucose POC Glucose 114 H 161 H Calcium Phosphorus Magnesium AST Alkaline Phosphatase C-Reactive Protein Total Protein Albumin Lipase Vitamin B12 TSH Urine WBC (Auto) Urine Chloride Urine Total Protein Vancomycin Trough Crossmatch 11/12/16 11/12/16 11/12/16 05:00 05:00 05:00 WBC 12.8 H RBC 2.75 L Hgb 8.4 L Hct 25.7 L MCV RDW 16.3 H Plt Count Lymph % (Auto) [place] % (Auto) 7.5 H [place] # 1.0 H Seg Neutrophils % 78.0 H Seg Neuts % (Manual) Lymphocytes % (Manual) Monocytes % (Manual) Basophils % (Manual) Nucleated RBC % Seg Neutrophils # 10.0 H Seg Neutrophils # Man Lymphocytes # (Manual) Monocytes # (Manual) Eosinophils # (Manual) Basophils # (Manual) PT INR APTT Heparin Anti-Xa Level 0.87 H POC ABG pH POC ABG pCO2 POC ABG pO2 Sodium Potassium 3.4 L Chloride Carbon Dioxide 19 L BUN Creatinine Glucose 112 H POC Glucose Calcium 7.7 L Phosphorus Magnesium AST Alkaline Phosphatase C-Reactive Protein Total Protein Albumin Lipase Vitamin B12 TSH Urine WBC (Auto) Urine Chloride Urine Total Protein Vancomycin Trough Crossmatch 11/12/16 11/12/16 11/13/16 11:18 16:40 00:44 WBC RBC Hgb Hct MCV RDW Plt Count Lymph % (Auto) [place] % (Auto) [place] # Seg Neutrophils % Seg Neuts % (Manual) Lymphocytes % (Manual) Monocytes % (Manual) Basophils % (Manual) Nucleated RBC % Seg Neutrophils # Seg Neutrophils # Man Lymphocytes # (Manual) Monocytes # (Manual) Eosinophils # (Manual) Basophils # (Manual) PT INR APTT Heparin Anti-Xa Level POC ABG pH POC ABG pCO2 POC ABG pO2 Sodium Potassium Chloride Carbon Dioxide BUN Creatinine Glucose POC Glucose 135 H 139 H 169 H Calcium Phosphorus Magnesium AST Alkaline Phosphatase C-Reactive Protein Total Protein Albumin Lipase Vitamin B12 TSH Urine WBC (Auto) Urine Chloride Urine Total Protein Vancomycin Trough Crossmatch 11/13/16 11/13/16 11/13/16 05:28 05:28 06:02 WBC 12.7 H RBC 2.93 L Hgb 9.0 L Hct 27.6 L MCV RDW 16.1 H Plt Count Lymph % (Auto) [place] % (Auto) [place] # Seg Neutrophils % 78.6 H Seg Neuts % (Manual) Lymphocytes % (Manual) Monocytes % (Manual) Basophils % (Manual) Nucleated RBC % Seg Neutrophils # 10.0 H Seg Neutrophils # Man Lymphocytes # (Manual) Monocytes # (Manual) Eosinophils # (Manual) Basophils # (Manual) PT INR APTT Heparin Anti-Xa Level POC ABG pH POC ABG pCO2 POC ABG pO2 Sodium Potassium Chloride Carbon Dioxide 17 L BUN Creatinine Glucose 116 H POC Glucose 112 H Calcium 7.8 L Phosphorus Magnesium AST Alkaline Phosphatase C-Reactive Protein Total Protein Albumin Lipase Vitamin B12 TSH Urine WBC (Auto) Urine Chloride Urine Total Protein Vancomycin Trough Crossmatch 11/13/16 11/13/16 11/13/16 12:34 16:55 17:00 WBC RBC Hgb Hct MCV RDW Plt Count Lymph % (Auto) [place] % (Auto) [place] # Seg Neutrophils % Seg Neuts % (Manual) Lymphocytes % (Manual) Monocytes % (Manual) Basophils % (Manual) Nucleated RBC % Seg Neutrophils # Seg Neutrophils # Man Lymphocytes # (Manual) Monocytes # (Manual) Eosinophils # (Manual) Basophils # (Manual) PT INR APTT Heparin Anti-Xa Level POC ABG pH POC ABG pCO2 22.9 L POC ABG pO2 53 L Sodium Potassium Chloride Carbon Dioxide BUN Creatinine Glucose POC Glucose 109 H 122 H Calcium Phosphorus Magnesium AST Alkaline Phosphatase C-Reactive Protein Total Protein Albumin Lipase Vitamin B12 TSH Urine WBC (Auto) Urine Chloride Urine Total Protein Vancomycin Trough Crossmatch 11/13/16 11/14/16 11/14/16 23:33 04:42 04:42 WBC 11.7 H RBC 3.01 L Hgb 9.3 L Hct 28.9 L MCV RDW 16.5 H Plt Count Lymph % (Auto) [place] % (Auto) [place] # Seg Neutrophils % Seg Neuts % (Manual) 79.0 H Lymphocytes % (Manual) 10.0 L Monocytes % (Manual) Basophils % (Manual) Nucleated RBC % Seg Neutrophils # Seg Neutrophils # Man 9.2 H Lymphocytes # (Manual) Monocytes # (Manual) Eosinophils # (Manual) Basophils # (Manual) PT INR APTT Heparin Anti-Xa Level POC ABG pH POC ABG pCO2 POC ABG pO2 Sodium Potassium Chloride Carbon Dioxide 16 L BUN Creatinine Glucose 102 H POC Glucose 173 H Calcium 7.5 L Phosphorus Magnesium AST Alkaline Phosphatase C-Reactive Protein Total Protein Albumin Lipase Vitamin B12 TSH Urine WBC (Auto) Urine Chloride Urine Total Protein Vancomycin Trough Crossmatch Allied health notes reviewed: RT
--- NOTE | 2016-11-14 11:29 | Progress Note ---
Assessment and Plan Stable cardiac status. Continue current management. Will see as needed. - Patient Problems (1) Sinus tachycardia Current Visit: Yes Status: Acute (2) Respiratory failure Current Visit: Yes Status: Chronic Qualifiers: Chronicity: C Respiratory failure complication: R (3) Sepsis Current Visit: Yes Status: Acute Qualifiers: Sepsis type: S (4) DVT (deep venous thrombosis) Current Visit: Yes Status: Acute Qualifiers: DVT location: D Affected thrombotic vein of extremity: A Laterality: L Chronicity: C (5) Anemia Current Visit: No Status: Acute Qualifiers: Anemia type: A Iron deficiency anemia type: I Vitamin B12 deficiency anemia type: V Folate deficiency anemia type: F Bone marrow failure anemia type: B Hemolytic anemia type: H Other causes of anemia: O (6) PVD (peripheral vascular disease) Current Visit: Yes Status: Chronic (7) Diabetes Current Visit: No Status: Chronic Qualifiers: Diabetes mellitus type: D Diabetes mellitus complication status: D Diabetes mellitus complication detail: D Diabetic retinopathy severity: D Proliferative retinopathy type: P Diabetes mellitus macular edema: D Diabetes mellitus residential insulin use: D Laterality: L Chronic kidney disease stage: C Subjective Date of service: 11/14/16 Principal diagnosis: respiratory failure on mechanical ventilatory support, DKA Interval history: The patient is resting in bed. Sinus rhythm-sinus tach on the monitor. Objective Last Vital Signs Temp 98.6 F 11/14/16 08:00 Pulse 144 H 11/14/16 09:47 Resp 30 H 11/14/16 09:47 BP 139/74 11/14/16 09:47 Pulse Ox 100 11/14/16 09:47 - Physical Examination General: No Apparent Distress HEENT: Positive: Normocephaly, Mucus Membranes Moist Neck: Positive: neck supple, trachea midline, Other (trach) Cardiac: Positive: Reg Rate and Rhythm, S1/S2 Lungs: Positive: Rhonchi Neuro: Positive: Grossly Intact Abdomen: Positive: Soft Skin: Positive: Clear. 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) - Labs and Meds CBC 11/14/16 Range/Units 04:42 WBC 11.7 H (4.5-11.0) K/mm3 RBC 3.01 L (3.65-5.03) M/mm3 Hgb 9.3 L (10.1-14.3) gm/dl Hct 28.9 L (30.3-42.9) % Plt Count 387 (140-440) K/mm3 Comprehensive Metabolic Panel 11/14/16 Range/Units 04:42 Sodium 139 (137-145) mmol/L Potassium 3.9 (3.6-5.0) mmol/L Chloride 103.3 (98-107) mmol/L Carbon Dioxide 16 L (22-30) mmol/L BUN 7 (7-17) mg/dL Creatinine 0.7 (0.7-1.2) mg/dL Glucose 102 H (65-100) mg/dL Calcium 7.5 L (8.4-10.2) mg/dL - Imaging and Cardiology Echo: report reviewed (tds 10/24/2016 normal LV function with no significant regurgitations) - Telemetry EKG Rhythm: Sinus Tachycardia - Allied health notes Allied health notes reviewed: RT
--- NOTE | 2016-11-14 11:33 | Progress Note ---
Assessment and Plan Assessment and plan: 1. Acute respiratory failure with hypercapnia. Vent supported. s/p Trach and PEG. Continue with bronchodilators and wean as tolerated. 2. Diabetes mellitus type II. DKA resolved. Continue Sliding scale insulin 3. Sepsis- Leukocytosis Improving Suspected due to UTI, urine has only grown Paula, sputum cultures grew group B strep, continue broad-spectrum antibiotics, infectious disease input appreciated 4. 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/right lower extremity gangrene. The patient is status post recent right below the knee amputation. Patient currently on heparin drip. 5. Hypokalemia: Supplement potassium as needed 6. Toxic metabolic encephalopathy. Continue supportive care. 7. Sinus Tachycardia. Physiologic secondary to sepsis. 8. Anemia. Multifactorial including sepsis. s/p transfusion of PRBCs. Continue to follow H&H. 9. RUE DVT. Patient currently on heparin drip. 10. Abdominal pain. KUB reveals gastric distention but otherwise normal. No evidence of obstruction. Continue NG tube to suction for now. CT scan of the abdomen and pelvis without contrast essentially negative. Consider DC NG sxn and advancing to feeding slowly. History Interval history: No new issues overnight. Patient continues to have left-sided abdominal pain. Hospitalist Physical - Constitutional Vitals: Temp Pulse Resp BP Pulse Ox 98.6 F 144 H 30 H 139/74 100 11/14/16 08:00 11/14/16 09:47 11/14/16 09:47 11/14/16 09:47 11/14/16 09:47 General appearance: Present: no acute distress - EENT Eyes: Present: PERRL, EOM intact ENT: hearing intact, clear oral mucosa, dentition normal - Neck Neck: Present: supple, normal ROM - Respiratory Respiratory effort: normal Respiratory: bilateral: CTA - Cardiovascular Rhythm: regular Heart Sounds: Present: S1 & S2. Absent: gallop, rub - Extremities Extremities: no ischemia, No edema, Full ROM - Abdominal General gastrointestinal: soft, non-tender, non-distended, normal bowel sounds Localized gastrointestinal: tender: LUQ (mild), LLQ (mild) - Integumentary Integumentary: Present: clear, warm, dry - Neurologic Neurologic: CNII-XII intact, moves all extremities Results - Labs CBC & Chem 7: 11/14/16 04:42 11/14/16 04:42 Labs: Laboratory Last Values WBC 11.7 K/mm3 (4.5-11.0) H 11/14/16 04:42 RBC 3.01 M/mm3 (3.65-5.03) L 11/14/16 04:42 Hgb 9.3 gm/dl (10.1-14.3) L 11/14/16 04:42 Hct 28.9 % (30.3-42.9) L 11/14/16 04:42 MCV 96 fl (79-97) 11/14/16 04:42 MCH 31 pg (28-32) 11/14/16 04:42 MCHC 32 % (30-34) 11/14/16 04:42 RDW 16.5 % (13.2-15.2) H 11/14/16 04:42 Plt Count 387 K/mm3 (140-440) 11/14/16 04:42 Lymph % (Auto) 13.8 % (13.4-35.0) 11/13/16 05:28 [place] % (Auto) 6.4 % (0.0-7.3) 11/13/16 05:28 Eos % (Auto) 0.9 % (0.0-4.3) 11/13/16 05:28 Baso % (Auto) 0.3 % (0.0-1.8) 11/13/16 05:28 Lymph # 1.8 K/mm3 (1.2-5.4) 11/13/16 05:28 [place]yer # 0.8 K/mm3 (0.0-0.8) 11/13/16 05:28 Eos # 0.1 K/mm3 (0.0-0.4) 11/13/16 05:28 Baso # 0.0 K/mm3 (0.0-0.1) 11/13/16 05:28 Add Manual Diff Complete 11/14/16 04:42 Total Counted 100 11/14/16 04:42 Seg Neutrophils % 78.6 % (40.0-70.0) H 11/13/16 05:28 Seg Neuts % (Manual) 79.0 % (40.0-70.0) H 11/14/16 04:42 Band Neutrophils % 6.0 % 11/14/16 04:42 Lymphocytes % (Manual) 10.0 % (13.4-35.0) L 11/14/16 04:42 Reactive Lymphs % (Man) 0 % 11/14/16 04:42 Monocytes % (Manual) 5.0 % (0.0-7.3) 11/14/16 04:42 Eosinophils % (Manual) 0 % (0.0-4.3) 11/14/16 04:42 Basophils % (Manual) 0 % (0.0-1.8) 11/14/16 04:42 Metamyelocytes % 0 % 11/14/16 04:42 Myelocytes % 0 % 11/14/16 04:42 Promyelocytes % 0 % 11/14/16 04:42 Blast Cells % 0 % 11/14/16 04:42 Nucleated RBC % Not Reportable 11/14/16 04:42 Seg Neutrophils # 10.0 K/mm3 (1.8-7.7) H 11/13/16 05:28 Seg Neutrophils # Man 9.2 K/mm3 (1.8-7.7) H 11/14/16 04:42 Band Neutrophils # 0.7 K/mm3 11/14/16 04:42 Lymphocytes # (Manual) 1.2 K/mm3 (1.2-5.4) 11/14/16 04:42 Abs React Lymphs (Man) 0.0 K/mm3 11/14/16 04:42 Monocytes # (Manual) 0.6 K/mm3 (0.0-0.8) 11/14/16 04:42 Eosinophils # (Manual) 0.0 K/mm3 (0.0-0.4) 11/14/16 04:42 Basophils # (Manual) 0.0 K/mm3 (0.0-0.1) 11/14/16 04:42 Metamyelocytes # 0.0 K/mm3 11/14/16 04:42 Myelocytes # 0.0 K/mm3 11/14/16 04:42 Promyelocytes # 0.0 K/mm3 11/14/16 04:42 Blast Cells # 0.0 K/mm3 11/14/16 04:42 Pathologist Review 10/29/16 09:30 WBC Morphology Not Reportable 11/14/16 04:42 Hypersegmented Neuts Not Reportable 11/14/16 04:42 Hyposegmented Neuts Not Reportable 11/14/16 04:42 Hypogranular Neuts Not Reportable 11/14/16 04:42 Hypersegmented Polys TNR 10/17/16 07:08 Smudge Cells Not Reportable 11/14/16 04:42 Toxic Granulation Not Reportable 11/14/16 04:42 Toxic Vacuolation Not Reportable 11/14/16 04:42 Dohle Bodies Not Reportable 11/14/16 04:42 Pelger-Huet Anomaly Not Reportable 11/14/16 04:42 Alka Rods Not Reportable 11/14/16 04:42 Platelet Estimate Consistent w auto 11/14/16 04:42 Clumped Platelets Not Reportable 11/14/16 04:42 Plt Clumps, EDTA Not Reportable 11/14/16 04:42 Large Platelets Not Reportable 11/14/16 04:42 Giant Platelets Not Reportable 11/14/16 04:42 Platelet Satelliting Not Reportable 11/14/16 04:42 Plt Morphology Comment Not Reportable 11/14/16 04:42 RBC Morphology Not Reportable 11/14/16 04:42 Dimorphic RBCs Not Reportable 11/14/16 04:42 Polychromasia Not Reportable 11/14/16 04:42 Hypochromasia Not Reportable 11/14/16 04:42 Poikilocytosis Not Reportable 11/14/16 04:42 Basophilic Stippling TNR 10/17/16 07:08 Anisocytosis 1+ 11/14/16 04:42 Microcytosis Not Reportable 11/14/16 04:42 Macrocytosis Not Reportable 11/14/16 04:42 Spherocytes Not Reportable 11/14/16 04:42 Pappenheimer Bodies Not Reportable 11/14/16 04:42 Sickle Cells Not Reportable 11/14/16 04:42 Target Cells Not Reportable 11/14/16 04:42 Tear Drop Cells Not Reportable 11/14/16 04:42 Ovalocytes Not Reportable 11/14/16 04:42 Stomatocytes Few 11/03/16 00:05 Helmet Cells Not Reportable 11/14/16 04:42 [place] Bodies Not Reportable 11/14/16 04:42 [place] Rings Not Reportable 11/14/16 04:42 Jeannette Cells Not Reportable 11/14/16 04:42 Bite Cells Not Reportable 11/14/16 04:42 Crenated Cell Not Reportable 11/14/16 04:42 Elliptocytes Not Reportable 11/14/16 04:42 Acanthocytes (Spur) Not Reportable 11/14/16 04:42 Rouleaux Not Reportable 11/14/16 04:42 Hemoglobin C Crystals Not Reportable 11/14/16 04:42 Schistocytes Not Reportable 11/14/16 04:42 Malaria parasites Not Reportable 11/14/16 04:42 David Bodies Not Reportable 11/14/16 04:42 Hem Pathologist Commnt No 11/14/16 04:42 PT 16.4 Sec. (12.2-14.9) H 10/17/16 16:07 INR 1.33 (0.87-1.13) H 10/17/16 16:07 APTT 38.8 Sec. (24.2-36.6) H 10/17/16 16:07 Heparin Anti-Xa Level 0.37 U.I./ml (0.3-0.7) 11/13/16 17:52 POC ABG pH 7.449 (7.35-7.45) 11/13/16 17:00 POC ABG pCO2 22.9 (35-45) L 11/13/16 17:00 POC ABG pO2 53 (80-105) L 11/13/16 17:00 POC ABG HCO3 15.9 11/13/16 17:00 POC ABG Total CO2 17 11/13/16 17:00 POC ABG O2 Sat 89 11/13/16 17:00 POC ABG Base Excess -8 11/13/16 17:00 VBG pH 7.020 (7.320-7.420) L* 10/13/16 04:22 FiO2 25 % 11/13/16 17:00 Sodium 139 mmol/L (137-145) 11/14/16 04:42 Potassium 3.9 mmol/L (3.6-5.0) 11/14/16 04:42 Chloride 103.3 mmol/L (98-107) 11/14/16 04:42 Carbon Dioxide 16 mmol/L (22-30) L 11/14/16 04:42 Anion Gap 24 mmol/L 11/14/16 04:42 BUN 7 mg/dL (7-17) 11/14/16 04:42 Creatinine 0.7 mg/dL (0.7-1.2) 11/14/16 04:42 Estimated GFR > 60 ml/min 11/14/16 04:42 BUN/Creatinine Ratio 10.00 % 11/14/16 04:42 Glucose 102 mg/dL (65-100) H 11/14/16 04:42 POC Glucose 96 (70-105) 11/14/16 05:21 Osmolality 332 Mosm/kg 10/14/16 07:03 Lactic Acid 1.8 mmol/L (0.7-2.0) 10/14/16 07:03 Calcium 7.5 mg/dL (8.4-10.2) L 11/14/16 04:42 Phosphorus 2.7 mg/dL (2.5-4.5) D 10/21/16 Unknown Magnesium 1.2 mg/dL (1.7-2.3) L 11/03/16 00:05 Total Bilirubin 0.3 mg/dL (0.1-1.2) 11/05/16 02:30 AST 9 units/L (5-40) 11/05/16 02:30 ALT 11 units/L (7-56) 11/05/16 02:30 Alkaline Phosphatase 119 units/L (35-129) 11/05/16 02:30 Ammonia 35.0 umol/L (25-60) 10/13/16 05:40 Total Creatine Kinase 107 units/L (30-135) 10/13/16 04:22 CK-MB (CK-2) 3.1 ng/mL (0.0-4.0) 10/13/16 04:22 CK-MB (CK-2) Rel Index 2.8 (0-4) 10/13/16 04:22 Troponin T < 0.010 ng/mL (0.00-0.029) 10/14/16 18:55 C-Reactive Protein 10.50 mg/dL (0.00-1.30) H 10/13/16 16:14 Total Protein 6.7 g/dL (6.3-8.2) 11/05/16 02:30 Albumin 1.9 g/dL (3.9-5) L 11/05/16 02:30 Albumin/Globulin Ratio 0.4 % 11/05/16 02:30 Amylase 30 units/L (27-131) 11/10/16 04:30 Lipase 41 units/L (13-60) 11/10/16 04:30 Vitamin B12 976.8 pg/mL (211-911) H 10/22/16 10:25 TSH 0.162 mlU/mL (0.270-4.200) L 10/22/16 14:50 Free T4 0.77 ng/dL (0.76-1.46) 10/22/16 14:50 Urine Color Yellow (Yellow) 10/15/16 11:05 Urine Turbidity Cloudy (Clear) 10/15/16 11:05 Urine pH 5.0 (5.0-7.0) 10/15/16 11:05 Ur Specific [place] 1.009 (1.003-1.030) 10/15/16 11:05 Urine Protein 30 mg/dl mg/dL (Negative) 10/15/16 11:05 Urine Glucose (UA) 150 mg/dL (Negative) 10/15/16 11:05 Urine Ketones Neg mg/dL (Negative) 10/15/16 11:05 Urine Blood Lg (Negative) 10/15/16 11:05 Urine Nitrite Neg (Negative) 10/15/16 11:05 Urine Bilirubin Neg (Negative) 10/15/16 11:05 Urine Urobilinogen < 2.0 mg/dL (<2.0) 10/15/16 11:05 Ur Leukocyte Esterase Neg (Negative) 10/15/16 11:05 Urine WBC (Auto) 7.0 /HPF (0.0-6.0) H 10/15/16 11:05 Urine RBC (Auto) 7.0 /HPF (0.0-6.0) 10/15/16 11:05 U Epithel Cells (Auto) 1.0 /HPF (0-13.0) 10/15/16 11:05 Urine Mucus Few /HPF 10/15/16 11:05 Urine Yeast (Budding) 2+ /HPF 10/15/16 11:05 Urine Osmolality 487 Mosm/kg 10/13/16 Unknown Urine Creatinine < 4.2 mg/dL (0.1-20.0) 10/13/16 Unknown Protein/Creatinin Ratio 0.00 10/13/16 Unknown Urine Sodium 10 mEq/L 10/13/16 Unknown Urine Potassium 1.00 mEq/L 10/13/16 Unknown Urine Chloride 10.0 mEq/L (110-250) L 10/13/16 Unknown Urine Total Protein < 4 mg/dL (5-11.8) L 10/13/16 Unknown Vancomycin Trough 35.4 ug/mL (5.0-20.0) H 11/08/16 20:45 Random Vancomycin 19.4 ug/mL (0-40.0) 11/11/16 06:15 Ketones 107.3 mg/dL (0.2-2.8) H 10/13/16 04:22 Blood Type A POSITIVE 11/03/16 18:01 Antibody Screen Negative 11/03/16 18:01 Crossmatch See Detail 11/03/16 18:01
[2016-11-14] MEDS ORDERED: WATER FOR INJ (PF) 10 ML ONE (12:13)
[2016-11-14] MEDS: VANCOMYCIN VIAL 1,500 MG in NACL 0.9% 500 ML 500 ML IV SCH (12:25)
[2016-11-14] MEDS: PEPCID PO SCH ×2 (12:26→21:41)
[2016-11-14] MEDS: LEVAQUIN 750MG/150ML 750 MG/150 ML BAG IV SCH (12:26)
[2016-11-14] MEDS: PLAVIX PO SCH (12:27)
--- NOTE | 2016-11-14 14:03 | Gastroenterology Consultation ---
History of Present Illness - Reason for Consult Consult date: 11/14/16 vomiting Requesting physician: RENU HOOK - History of Present Illness Ms. Sofia is a 66 y/o female admitted on 10/13/16 with respiratory failure on vent support. She is S/P trach with PEG placement per surgery. She has had a prolonged hospitalization with DKA, acute ischemia of the R foot s/p RBKA (2/2 SFA thrombosis) toxic encephalopathy and RUE DVT ( on Heparin gtt and Plavix) Her states she was taking Goody powders "occasionally" prior to hospitalization. We have been asked to see the patient for multiple episodes of vomiting. Nursing reports NGT placed with >500 ml return and the patient continues to vomit even with NGT/ sx. Abdominal Xray over the weekend reveals gastric distention, CT ( no contrast) with no acute process. Past History Past Medical History: diabetes, hypertension, hyperlipidemia Past Surgical History: Other (left alina surgery for fracture repair and thyroid surgery per , status post trach status post PEG and right [id number] of dictation) Social history: Family history: no significant family history Medications and Allergies Allergies Allergy/AdvReac Type Severity Reaction Status Date / Time Penicillins Allergy Rash Verified 08/27/13 08:32 Home Medications Medication Instructions Recorded Confirmed Last Taken Type Insulin Aspart [NovoLOG Flexpen] 45 units SQ QPM 10/13/16 10/13/16 Unknown History Insulin Aspart [NovoLOG Flexpen] 50 units SQ QAM 10/13/16 10/13/16 Unknown History Insulin Detemir [Levemir VIAL] 20 unit SQ QHS 10/13/16 10/13/16 Unknown History Losartan [Cozaar] 25 mg PO QDAY 10/13/16 10/13/16 Unknown History Metoprolol [Lopressor] 25 mg PO BID 10/13/16 10/13/16 Unknown History Pregabalin [Lyrica] 75 mg PO BID 10/13/16 10/13/16 Unknown History Quetiapine Fumarate [Seroquel] 100 mg PO QHS 10/13/16 10/13/16 Unknown History amLODIPine [Norvasc] 5 mg PO DAILY 10/13/16 10/13/16 Unknown History clonazePAM [Klonopin] 1 mg PO BID PRN 02/25/17 02/25/17 Unknown History Active Meds: Active Medications Acetaminophen (Tylenol) 650 mg WI Q4H PRN PRN Reason: Pain, Mild (1-3) Lipase/Protease/Amylase (Pancreaze Dr 10,500 Unit) 1 each FEEDTUBE PRN PRN PRN Reason: For Clogged Feeding Tube Clopidogrel Bisulfate (Plavix) 75 mg PO QDAY JULI Last Admin: 11/14/16 12:27 Dose: 75 mg Dextrose (D50w (25gm)) 50 ml IV PRN PRN PRN Reason: Hypoglycemia Last Admin: 10/26/16 00:34 Dose: 50 ml Famotidine (Pepcid) 20 mg PO BID JULI Last Admin: 11/14/16 12:26 Dose: 20 mg Hydromorphone HCl (Dilaudid) 0.5 mg IV Q3H PRN PRN Reason: Pain , Severe (7-10) Last Admin: 11/13/16 21:58 Dose: 0.5 mg Hydrophilic Ointment (Vaseline Lip Therapy) 1 applic TP Q2HR PRN PRN Reason: Dry Lips Last Admin: 11/04/16 12:41 Dose: 1 applic Midazolam HCl (Versed/Ns 100mg/100ml) 100 mg in 100 mls @ 1 mls/hr IV TITR JULI ; 1 MG/HR PRN Reason: Protocol Last Titration: 11/08/16 14:00 Dose: 0 mg/hr, 0 mls/hr Fentanyl Citrate (Fentanyl Drip Premix) 2,000 mcg in 100 mls @ 4.79 mls/hr IV TITR JULI; 1 MCG/KG/HR PRN Reason: Protocol Last Titration: 11/12/16 10:00 Dose: Infused Heparin Sodium/Sodium Chloride (Heparin/ 0.45% Nacl-25,000 Unit/500 Ml) 25,000 units in 500 mls @ 29 mls/hr IV TITR JULI; 1,450 UNITS/HR PRN Reason: Protocol Last Admin: 11/14/16 03:35 Dose: 1,650 units/hr, 33 mls/hr Levofloxacin/Dextrose (Levaquin 750mg/150ml) 750 mg in 150 mls @ 100 mls/hr IV Q24HR JULI PRN Reason: Protocol Last Admin: 11/14/16 12:26 Dose: 100 mls/hr Vancomycin HCl 1,500 mg/ (Sodium Chloride) 500 mls @ 333.333 mls/hr IV Q24HR [facility] Stop: 11/17/16 09:59 Last Admin: 11/14/16 12:25 Dose: 333.333 mls/hr Insulin Human Regular (Novolin R) 0 units SUB-Q Q6HR [facility] PRN Reason: Protocol Last Admin: 11/14/16 13:01 Dose: Not Given Metoclopramide HCl (Reglan) 10 mg IV Q6HR [facility] Last Admin: 11/14/16 12:27 Dose: 10 mg Metoprolol Tartrate (Lopressor) 50 mg FEEDTUBE Q6HR [facility] Last Admin: 11/14/16 12:27 Dose: 50 mg Multi-Ingred Cream/Lotion/Oil/Oint (Artificial Tears Ophth Oint) 1 applic OU Q4HR PRN PRN Reason: Dry Eye(s) Ondansetron HCl (Zofran) 4 mg IV Q8H PRN PRN Reason: N/V unrelieved by Reglan Last Admin: 11/14/16 10:27 Dose: 4 mg Quetiapine Fumarate (Seroquel) 150 mg PO BID [facility] Last Admin: 11/14/16 12:26 Dose: 150 mg Simple Syrup (Simple Syrup) 15 ml FEEDTUBE PRN PRN PRN Reason: Hypoglycemia Simple Syrup (Simple Syrup) 30 ml FEEDTUBE PRN PRN PRN Reason: Hypoglycemia Sodium Bicarbonate (Sodium Bicarbonate) 325 mg FEEDTUBE PRN PRN PRN Reason: For Clogged Feeding Tube Vancomycin HCl (Vancomycin Pharmacy To Dose) 1 each IV PKCONSULT [facility] PRN Reason: Protocol Stop: 11/17/16 23:59 Review of Systems - Review of Systems ROS unobtainable: due to endotracheal tube, due to mental status Exam - Constitutional Vital Signs: Temp Pulse Resp BP Pulse Ox 98.6 F 103 H 37 H 144/71 100 11/14/16 08:00 11/14/16 12:30 11/14/16 12:30 11/14/16 12:30 11/14/16 12:46 General appearance: mild distress, other (non verbal during exam) - Neck Neck: supple - Respiratory Respiratory: bilateral: diminished, rhonchi (anteriorly) - Cardiovascular Rhythm: other (irregular, tachycardia) Extremities: abnormal (right BKA/ dressing intact) - Gastrointestinal General gastrointestinal: Present: soft, hypoactive bowel sounds - Integumentary Integumentary: Present: warm, dry - Neurologic Neurological: other (trach/ vent support/drowsy) - Labs CBC & Chem 7: 11/14/16 04:42 11/14/16 04:42 Lab Results: Laboratory Results - last 24 hr 11/13/16 11/13/16 11/13/16 12:34 16:55 17:00 WBC RBC Hgb Hct MCV MCH MCHC RDW Plt Count Add Manual Diff Total Counted Seg Neuts % (Manual) Band Neutrophils % Lymphocytes % (Manual) Reactive Lymphs % (Man) Monocytes % (Manual) Eosinophils % (Manual) Basophils % (Manual) Metamyelocytes % Myelocytes % Promyelocytes % Blast Cells % Nucleated RBC % Seg Neutrophils # Man Band Neutrophils # Lymphocytes # (Manual) Abs React Lymphs (Man) Monocytes # (Manual) Eosinophils # (Manual) Basophils # (Manual) Metamyelocytes # Myelocytes # Promyelocytes # Blast Cells # WBC Morphology Hypersegmented Neuts Hyposegmented Neuts Hypogranular Neuts Smudge Cells Toxic Granulation Toxic Vacuolation Dohle Bodies Pelger-Huet Anomaly [place] Rods Platelet Estimate Clumped Platelets Plt Clumps, EDTA Large Platelets Giant Platelets Platelet Satelliting Plt Morphology Comment RBC Morphology Dimorphic RBCs Polychromasia Hypochromasia Poikilocytosis Anisocytosis Microcytosis Macrocytosis Spherocytes Pappenheimer Bodies Sickle Cells Target Cells Tear Drop Cells Ovalocytes Helmet Cells [place] Bodies [place] Rings [place] Cells Bite Cells Crenated Cell Elliptocytes Acanthocytes (Spur) Rouleaux Hemoglobin C Crystals Schistocytes Malaria parasites David Bodies Hem Pathologist Commnt Heparin Anti-Xa Level POC ABG pH 7.449 POC ABG pCO2 22.9 L POC ABG pO2 53 L POC ABG HCO3 15.9 POC ABG Total CO2 17 POC ABG O2 Sat 89 POC ABG Base Excess -8 FiO2 25 Sodium Potassium Chloride Carbon Dioxide Anion Gap BUN Creatinine Estimated GFR BUN/Creatinine Ratio Glucose POC Glucose 109 H 122 H Calcium 11/13/16 11/13/16 11/14/16 17:52 23:33 04:42 WBC 11.7 H RBC 3.01 L Hgb 9.3 L Hct 28.9 L MCV 96 MCH 31 MCHC 32 RDW 16.5 H Plt Count 387 Add Manual Diff Complete Total Counted 100 Seg Neuts % (Manual) 79.0 H Band Neutrophils % 6.0 Lymphocytes % (Manual) 10.0 L Reactive Lymphs % (Man) 0 Monocytes % (Manual) 5.0 Eosinophils % (Manual) 0 Basophils % (Manual) 0 Metamyelocytes % 0 Myelocytes % 0 Promyelocytes % 0 Blast Cells % 0 Nucleated RBC % Not Reportable Seg Neutrophils # Man 9.2 H Band Neutrophils # 0.7 Lymphocytes # (Manual) 1.2 Abs React Lymphs (Man) 0.0 Monocytes # (Manual) 0.6 Eosinophils # (Manual) 0.0 Basophils # (Manual) 0.0 Metamyelocytes # 0.0 Myelocytes # 0.0 Promyelocytes # 0.0 Blast Cells # 0.0 WBC Morphology Not Reportable Hypersegmented Neuts Not Reportable Hyposegmented Neuts Not Reportable Hypogranular Neuts Not Reportable Smudge Cells Not Reportable Toxic Granulation Not Reportable Toxic Vacuolation Not Reportable Dohle Bodies Not Reportable Pelger-Huet Anomaly Not Reportable [place] Rods Not Reportable Platelet Estimate Consistent w auto Clumped Platelets Not Reportable Plt Clumps, EDTA Not Reportable Large Platelets Not Reportable Giant Platelets Not Reportable Platelet Satelliting Not Reportable Plt Morphology Comment Not Reportable RBC Morphology Not Reportable Dimorphic RBCs Not Reportable Polychromasia Not Reportable Hypochromasia Not Reportable Poikilocytosis Not Reportable Anisocytosis 1+ Microcytosis Not Reportable Macrocytosis Not Reportable Spherocytes Not Reportable Pappenheimer Bodies Not Reportable Sickle Cells Not Reportable Target Cells Not Reportable Tear Drop Cells Not Reportable Ovalocytes Not Reportable Helmet Cells Not Reportable [place] Bodies Not Reportable [place] Rings Not Reportable [place] Cells Not Reportable Bite Cells Not Reportable Crenated Cell Not Reportable Elliptocytes Not Reportable Acanthocytes (Spur) Not Reportable Rouleaux Not Reportable Hemoglobin C Crystals Not Reportable Schistocytes Not Reportable Malaria parasites Not Reportable David Bodies Not Reportable Hem Pathologist Commnt No Heparin Anti-Xa Level 0.37 POC ABG pH POC ABG pCO2 POC ABG pO2 POC ABG HCO3 POC ABG Total CO2 POC ABG O2 Sat POC ABG Base Excess FiO2 Sodium Potassium Chloride Carbon Dioxide Anion Gap BUN Creatinine Estimated GFR BUN/Creatinine Ratio Glucose POC Glucose 173 H Calcium 11/14/16 11/14/16 04:42 05:21 WBC RBC Hgb Hct MCV MCH MCHC RDW Plt Count Add Manual Diff Total Counted Seg Neuts % (Manual) Band Neutrophils % Lymphocytes % (Manual) Reactive Lymphs % (Man) Monocytes % (Manual) Eosinophils % (Manual) Basophils % (Manual) Metamyelocytes % Myelocytes % Promyelocytes % Blast Cells % Nucleated RBC % Seg Neutrophils # Man Band Neutrophils # Lymphocytes # (Manual) Abs React Lymphs (Man) Monocytes # (Manual) Eosinophils # (Manual) Basophils # (Manual) Metamyelocytes # Myelocytes # Promyelocytes # Blast Cells # WBC Morphology Hypersegmented Neuts Hyposegmented Neuts Hypogranular Neuts Smudge Cells Toxic Granulation Toxic Vacuolation Dohle Bodies Pelger-Huet Anomaly [place] Rods Platelet Estimate Clumped Platelets Plt Clumps, EDTA Large Platelets Giant Platelets Platelet Satelliting Plt Morphology Comment RBC Morphology Dimorphic RBCs Polychromasia Hypochromasia Poikilocytosis Anisocytosis Microcytosis Macrocytosis Spherocytes Pappenheimer Bodies Sickle Cells Target Cells Tear Drop Cells Ovalocytes Helmet Cells [place] Bodies [place] Rings [place] Cells Bite Cells Crenated Cell Elliptocytes Acanthocytes (Spur) Rouleaux Hemoglobin C Crystals Schistocytes Malaria parasites David Bodies Hem Pathologist Commnt Heparin Anti-Xa Level POC ABG pH POC ABG pCO2 POC ABG pO2 POC ABG HCO3 POC ABG Total CO2 POC ABG O2 Sat POC ABG Base Excess FiO2 Sodium 139 Potassium 3.9 Chloride 103.3 Carbon Dioxide 16 L Anion Gap 24 BUN 7 Creatinine 0.7 Estimated GFR > 60 BUN/Creatinine Ratio 10.00 Glucose 102 H POC Glucose 96 Calcium 7.5 L Assessment and Plan 1. Vomiting GOO vs ileus vs other -? abdominal pain -hypoactive BS -CT benign ( no contrast) -Ideally would like to have CT with oral contrast or SBFT, however concern for aspiration in this patient. May need to consider EGD to assess for GOO. -Keep NPO for now -Patient noted to be tachycardic/ tachypnea. -Further recommendations to follow.
[2016-11-14] MEDS: DILAUDID IV PRN (17:12)
[2016-11-14 20:04] LABS: Bacteria,Urine 1+ /HPF (Negative); Bilirubin,Urine NEG (Negative); Blood,Urine LG (Negative); Ketones,Urine 20 mg/dL (Negative); Leukocyte Esterase,Urine SM (Negative); Mucus,Urine FEW /HPF; Nitrite,Urine NEG (Negative); Urobilinogen,Urine < 2.0 mg/dL (<2.0)
[2016-11-14 20:09] LABS: RBC,Urine > 182.0 /HPF (0.0-6.0)
--- NOTE | 2016-11-14 20:36 | Progress Note ---
Subjective Date of service: 11/14/16 Principal diagnosis: respiratory failure on mechanical ventilatory support, DKA Interval history: No new issues Vital signs - Temp 98 CHEST - GOOD AIR ENTRY CVS - S1S2 ABD - BS_ LABS See lab section. ASSESSMENT 1. Sepsis 2. dka 3. resp failure 4. htn 5. clostridium difficile colitis 6. bilateral pneumonia 6. RIGHT LEG GANGRENE s/p amputation RECOMMENDATION 1. continue iv abx 2. cbc/bmp in am Objective - Constitutional Vitals: Vital Signs Temp Pulse Resp BP Pulse Ox 98.8 F 114 H 37 H 142/90 100 11/14/16 20:00 11/14/16 19:30 11/14/16 19:30 11/14/16 19:30 11/14/16 19:30 Temperature -Last 24 Hours Temperature 98.8 F Temperature 98.6 F Temperature 98.6 F Temperature 98.6 F Temperature 100.1 F Temperature 99.8 F - Labs CBC & Chem 7: 11/14/16 04:42 11/14/16 04:42 Labs: Abnormal lab results 11/13/16 11/13/16 11/14/16 Range/Units 12:34 23:33 04:42 WBC 11.7 H (4.5-11.0) K/mm3 RBC 3.01 L (3.65-5.03) M/mm3 Hgb 9.3 L (10.1-14.3) gm/dl Hct 28.9 L (30.3-42.9) % RDW 16.5 H (13.2-15.2) % Seg Neuts % (Manual) 79.0 H (40.0-70.0) % Lymphocytes % (Manual) 10.0 L (13.4-35.0) % Seg Neutrophils # Man 9.2 H (1.8-7.7) K/mm3 Heparin Anti-Xa Level (0.3-0.7) U.I./ml Carbon Dioxide (22-30) mmol/L Glucose (65-100) mg/dL POC Glucose 109 H 173 H (70-105) Calcium (8.4-10.2) mg/dL 11/14/16 11/14/16 11/14/16 Range/Units 04:42 11:43 16:57 WBC (4.5-11.0) K/mm3 RBC (3.65-5.03) M/mm3 Hgb (10.1-14.3) gm/dl Hct (30.3-42.9) % RDW (13.2-15.2) % Seg Neuts % (Manual) (40.0-70.0) % Lymphocytes % (Manual) (13.4-35.0) % Seg Neutrophils # Man (1.8-7.7) K/mm3 Heparin Anti-Xa Level (0.3-0.7) U.I./ml Carbon Dioxide 16 L (22-30) mmol/L Glucose 102 H (65-100) mg/dL POC Glucose 130 H 209 H (70-105) Calcium 7.5 L (8.4-10.2) mg/dL 11/14/16 Range/Units 19:45 WBC (4.5-11.0) K/mm3 RBC (3.65-5.03) M/mm3 Hgb (10.1-14.3) gm/dl Hct (30.3-42.9) % RDW (13.2-15.2) % Seg Neuts % (Manual) (40.0-70.0) % Lymphocytes % (Manual) (13.4-35.0) % Seg Neutrophils # Man (1.8-7.7) K/mm3 Heparin Anti-Xa Level 0.71 H (0.3-0.7) U.I./ml Carbon Dioxide (22-30) mmol/L Glucose (65-100) mg/dL POC Glucose (70-105) Calcium (8.4-10.2) mg/dL
[2016-11-15] MEDS: DILAUDID IV PRN ×3 (00:30→23:11)
[2016-11-15] MEDS: REGLAN IV SCH ×4 (00:32→17:21)
[2016-11-15] MEDS: ATIVAN IV PRN ×2 (00:32→13:35)
[2016-11-15] MEDS: LOPRESSOR FEEDTUBE SCH ×4 (00:32→17:21)
--- NOTE | 2016-11-15 08:40 | XRay Report ---
SUPINE KUB: History: Abdominal distention, gastric outlet obstruction. A nasogastric tube has been inserted since 11/10/16 which is coiled in the fundus of the stomach. A PEG tube is also in position. Gaseous distention of the stomach has resolved and is now within normal limits. The small bowel loops and colon are unremarkable. Cholecystectomy changes. Lung bases are clear. IMPRESSION: Unremarkable abdomen.
[2016-11-15] MEDS: LEVAQUIN 750MG/150ML 750 MG/150 ML BAG IV SCH (09:42)
[2016-11-15] MEDS: PLAVIX PO SCH (09:43)
[2016-11-15] MEDS: PEPCID PO SCH ×2 (09:43→22:25)
[2016-11-15] MEDS: VANCOMYCIN VIAL 1,500 MG in NACL 0.9% 500 ML 500 ML IV SCH (09:51)
--- NOTE | 2016-11-15 10:10 | Progress Note ---
Assessment and Plan - Patient Problems (1) Acute respiratory failure with hypercapnia Current Visit: Yes Status: Acute Plan to address problem: - continue aspiration precautions / VAP bundles - continue bronchodilators and pulmonary toilet - continue to wean oxygen to keep sats > 94% - CXR actually with improved infiltrates - continue daily bedside SBT's as tolerated - hopefully weans better once GI issues resolved (2) Altered mental status Current Visit: Yes Status: Acute Qualifiers: Altered mental status type: A Coma depth: C Coma timing: C Plan to address problem: - no active seizures - following clinically - seen by neurology and will follow their recommendations - no seizures on EEG - more appropriate clinically overall (3) LUCY (acute kidney injury) Current Visit: Yes Status: Acute Plan to address problem: - resolved - following I's & O's (4) DKA (diabetic ketoacidoses) Current Visit: Yes Status: Acute Qualifiers: Diabetes mellitus type: D Diabetes mellitus complication detail: D Plan to address problem: - resolved - continue SSI (5) Sepsis Current Visit: No Status: Acute Qualifiers: Sepsis type: S Plan to address problem: - continue anti-infectives per ID recs - follow clinically (improved) - trend lactate and CRP prn - improving numbers post amputation (6) Emesis Current Visit: Yes Status: Acute Qualifiers: Vomiting type: V Vomiting Intractability: V Nausea presence: N Plan to address problem: - increased reglan dose - reduced fentanyl dose and using other sedatives/anxiolytics (re: opiates and G.I. motility) - continue aspiration precautions - GI input appreciated (7) Discharge planning issues Current Visit: No Status: Acute Plan to address problem: ...hopefully weans well, tolerates t-piece and can soon transfer out of ICU ...for now remains critically ill on life sustaining treatments including MVS and at high risk for further deterioration including ...34'' CCT Subjective Date of service: 11/15/16 Principal diagnosis: respiratory failure on mechanical ventilatory support, DKA Interval history: Seen and examined at bedside; 24 hour events reviewed; nursing and respiratory care staff consulted; no adverse overnight events reported to me; placed on t- piece after tolerating PSV but soon decompensated with increased work of breathing and tachycardia; denies uncontrolled pain and anxiety still appears to be a major issue here; still not tolerating tube feeds well bet seen by GI team Objective Vital Signs - 12hr 11/14/16 11/14/16 11/14/16 22:30 23:00 23:30 Temperature Pulse Rate 99 H 101 H 105 H Pulse Rate [ From Monitor] Respiratory 25 H 26 H 29 H Rate Blood Pressure 141/80 147/82 156/93 O2 Sat by Pulse 99 100 Oximetry O2 Sat by Pulse Oximetry [ Assessment] 11/15/16 11/15/16 11/15/16 00:00 00:15 00:30 Temperature 99.6 F Pulse Rate 104 H 111 H 108 H Pulse Rate [ 110 H From Monitor] Respiratory 30 H 34 H Rate Blood Pressure 148/84 148/84 156/89 O2 Sat by Pulse 100 100 Oximetry O2 Sat by Pulse Oximetry [ Assessment] 11/15/16 11/15/16 11/15/16 00:32 01:00 01:30 Temperature Pulse Rate 107 H 107 H 100 H Pulse Rate [ From Monitor] Respiratory 28 H 22 Rate Blood Pressure 148/84 139/81 O2 Sat by Pulse 100 100 Oximetry O2 Sat by Pulse Oximetry [ Assessment] 11/15/16 11/15/16 11/15/16 02:00 02:30 03:00 Temperature Pulse Rate 93 H 92 H 91 H Pulse Rate [ From Monitor] Respiratory 30 H 27 H 20 Rate Blood Pressure 137/76 129/72 139/75 O2 Sat by Pulse 100 100 100 Oximetry O2 Sat by Pulse Oximetry [ Assessment] 11/15/16 11/15/16 11/15/16 03:30 04:00 04:30 Temperature 99.9 F H Pulse Rate 89 90 92 H Pulse Rate [ 104 H From Monitor] Respiratory 26 H 30 H 19 Rate Blood Pressure 125/68 136/80 139/73 O2 Sat by Pulse 100 100 100 Oximetry O2 Sat by Pulse Oximetry [ Assessment] 11/15/16 11/15/16 11/15/16 05:00 05:03 05:25 Temperature Pulse Rate 94 H 93 H 139 H Pulse Rate [ From Monitor] Respiratory 23 Rate Blood Pressure 136/70 136/70 136/70 O2 Sat by Pulse 100 100 Oximetry O2 Sat by Pulse Oximetry [ Assessment] 11/15/16 11/15/16 11/15/16 05:30 06:00 06:30 Temperature Pulse Rate 138 H 142 H 101 H Pulse Rate [ From Monitor] Respiratory 20 29 H 19 Rate Blood Pressure 130/80 143/83 137/83 O2 Sat by Pulse 100 100 Oximetry O2 Sat by Pulse Oximetry [ Assessment] 11/15/16 11/15/16 11/15/16 07:00 07:30 07:53 Temperature 99.1 F Pulse Rate 98 H 101 H Pulse Rate [ From Monitor] Respiratory 26 H 26 H Rate Blood Pressure 147/77 147/77 O2 Sat by Pulse 100 100 Oximetry O2 Sat by Pulse Oximetry [ Assessment] 11/15/16 11/15/16 08:00 08:35 Temperature Pulse Rate 107 H 102 H Pulse Rate [ From Monitor] Respiratory 28 H Rate Blood Pressure 160/85 160/84 O2 Sat by Pulse 100 Oximetry O2 Sat by Pulse 100 Oximetry [ Assessment] Constitutional: no acute distress, other (anxious) Eyes: non-icteric ENT: oropharynx moist Neck: supple, no lymphadenopathy Effort: mildly labored Ascultation: Bilateral: diminished breath sounds, rales Cardiovascular: regular rate and rhythm, other (tachycardia) Gastrointestinal: normoactive bowel sounds, soft, non-tender, non-distended Integumentary: normal Extremities: no cyanosis, no edema, no ischemia or petechiae, other (s/p right BKA) Neurologic: non-focal exam (grossly), pupils equal and round, other (sedated) Psychiatric: anxious CBC and BMP: 11/16/16 09:05 11/16/16 09:05 ABG, PT/INR, D-dimer: ABG POC ABG pH 7.449 (7.35-7.45) 11/13/16 17:00 POC ABG pCO2 22.9 (35-45) L 11/13/16 17:00 POC ABG pO2 53 (80-105) L 11/13/16 17:00 POC ABG HCO3 15.9 11/13/16 17:00 POC ABG Total CO2 17 11/13/16 17:00 POC ABG O2 Sat 89 11/13/16 17:00 PT/INR, D-dimer PT 16.4 Sec. (12.2-14.9) H 10/17/16 16:07 INR 1.33 (0.87-1.13) H 10/17/16 16:07 Abnormal lab findings: Abnormal Labs 10/13/16 10/13/16 10/13/16 06:38 06:38 07:23 WBC RBC Hgb Hct MCV RDW Plt Count Lymph % (Auto) [place] % (Auto) [place] # Seg Neutrophils % Seg Neuts % (Manual) Lymphocytes % (Manual) Monocytes % (Manual) Basophils % (Manual) Nucleated RBC % Seg Neutrophils # Seg Neutrophils # Man Lymphocytes # (Manual) Monocytes # (Manual) Eosinophils # (Manual) Basophils # (Manual) PT INR APTT Heparin Anti-Xa Level POC ABG pH POC ABG pCO2 POC ABG pO2 Sodium Potassium 6.2 H* Chloride Carbon Dioxide 8 L* BUN 85 H Creatinine 2.8 H Glucose 602 H* POC Glucose 495 H Calcium 7.9 L Phosphorus 6.9 H D Magnesium 3.0 H AST Alkaline Phosphatase C-Reactive Protein Total Protein Albumin Lipase Vitamin B12 TSH Urine WBC (Auto) Urine Chloride Urine Total Protein Vancomycin Trough Crossmatch 10/13/16 10/13/16 10/13/16 08:49 08:55 10:12 WBC RBC Hgb Hct MCV RDW Plt Count Lymph % (Auto) [place] % (Auto) [place] # Seg Neutrophils % Seg Neuts % (Manual) Lymphocytes % (Manual) Monocytes % (Manual) Basophils % (Manual) Nucleated RBC % Seg Neutrophils # Seg Neutrophils # Man Lymphocytes # (Manual) Monocytes # (Manual) Eosinophils # (Manual) Basophils # (Manual) PT INR APTT Heparin Anti-Xa Level POC ABG pH POC ABG pCO2 POC ABG pO2 Sodium Potassium 5.6 H Chloride Carbon Dioxide 11 L BUN 77 H Creatinine 2.7 H Glucose 457 H POC Glucose > 500 H 424 H Calcium 8.0 L Phosphorus Magnesium AST Alkaline Phosphatase C-Reactive Protein Total Protein Albumin Lipase Vitamin B12 TSH Urine WBC (Auto) Urine Chloride Urine Total Protein Vancomycin Trough Crossmatch 10/13/16 10/13/16 10/13/16 10:44 11:22 12:20 WBC RBC Hgb Hct MCV RDW Plt Count Lymph % (Auto) [place] % (Auto) [place] # Seg Neutrophils % Seg Neuts % (Manual) Lymphocytes % (Manual) Monocytes % (Manual) Basophils % (Manual) Nucleated RBC % Seg Neutrophils # Seg Neutrophils # Man Lymphocytes # (Manual) Monocytes # (Manual) Eosinophils # (Manual) Basophils # (Manual) PT INR APTT Heparin Anti-Xa Level POC ABG pH POC ABG pCO2 POC ABG pO2 Sodium Potassium 5.4 H Chloride Carbon Dioxide 14 L BUN 72 H Creatinine 2.6 H Glucose 383 H POC Glucose 391 H 313 H Calcium 8.2 L Phosphorus Magnesium AST Alkaline Phosphatase C-Reactive Protein Total Protein Albumin Lipase Vitamin B12 TSH Urine WBC (Auto) Urine Chloride Urine Total Protein Vancomycin Trough Crossmatch 10/13/16 10/13/16 10/13/16 13:32 14:44 15:57 WBC RBC Hgb Hct MCV RDW Plt Count Lymph % (Auto) [place] % (Auto) [place] # Seg Neutrophils % Seg Neuts % (Manual) Lymphocytes % (Manual) Monocytes % (Manual) Basophils % (Manual) Nucleated RBC % Seg Neutrophils # Seg Neutrophils # Man Lymphocytes # (Manual) Monocytes # (Manual) Eosinophils # (Manual) Basophils # (Manual) PT INR APTT Heparin Anti-Xa Level POC ABG pH POC ABG pCO2 POC ABG pO2 Sodium Potassium Chloride Carbon Dioxide BUN Creatinine Glucose POC Glucose 296 H 210 H 190 H Calcium Phosphorus Magnesium AST Alkaline Phosphatase C-Reactive Protein Total Protein Albumin Lipase Vitamin B12 TSH Urine WBC (Auto) Urine Chloride Urine Total Protein Vancomycin Trough Crossmatch 10/13/16 10/13/16 10/13/16 16:14 16:14 17:17 WBC RBC Hgb Hct MCV RDW Plt Count Lymph % (Auto) [place] % (Auto) [place] # Seg Neutrophils % Seg Neuts % (Manual) Lymphocytes % (Manual) Monocytes % (Manual) Basophils % (Manual) Nucleated RBC % Seg Neutrophils # Seg Neutrophils # Man Lymphocytes # (Manual) Monocytes # (Manual) Eosinophils # (Manual) Basophils # (Manual) PT INR APTT Heparin Anti-Xa Level POC ABG pH POC ABG pCO2 POC ABG pO2 Sodium Potassium Chloride Carbon Dioxide 17 L BUN 58 H Creatinine 1.8 H Glucose 172 H POC Glucose 193 H Calcium 7.7 L Phosphorus Magnesium AST Alkaline Phosphatase C-Reactive Protein 10.50 H Total Protein Albumin Lipase Vitamin B12 TSH Urine WBC (Auto) Urine Chloride Urine Total Protein Vancomycin Trough Crossmatch 10/13/16 10/13/16 10/13/16 17:55 18:32 19:41 WBC RBC Hgb Hct MCV RDW Plt Count Lymph % (Auto) [place] % (Auto) [place] # Seg Neutrophils % Seg Neuts % (Manual) Lymphocytes % (Manual) Monocytes % (Manual) Basophils % (Manual) Nucleated RBC % Seg Neutrophils # Seg Neutrophils # Man Lymphocytes # (Manual) Monocytes # (Manual) Eosinophils # (Manual) Basophils # (Manual) PT INR APTT Heparin Anti-Xa Level POC ABG pH POC ABG pCO2 30.6 L POC ABG pO2 218 H Sodium Potassium Chloride Carbon Dioxide BUN Creatinine Glucose POC Glucose 192 H 177 H Calcium Phosphorus Magnesium AST Alkaline Phosphatase C-Reactive Protein Total Protein Albumin Lipase Vitamin B12 TSH Urine WBC (Auto) Urine Chloride Urine Total Protein Vancomycin Trough Crossmatch 10/13/16 10/13/16 10/13/16 20:54 22:07 23:13 WBC RBC Hgb Hct MCV RDW Plt Count Lymph % (Auto) [place] % (Auto) [place] # Seg Neutrophils % Seg Neuts % (Manual) Lymphocytes % (Manual) Monocytes % (Manual) Basophils % (Manual) Nucleated RBC % Seg Neutrophils # Seg Neutrophils # Man Lymphocytes # (Manual) Monocytes # (Manual) Eosinophils # (Manual) Basophils # (Manual) PT INR APTT Heparin Anti-Xa Level POC ABG pH POC ABG pCO2 POC ABG pO2 Sodium Potassium Chloride Carbon Dioxide BUN Creatinine Glucose POC Glucose 178 H 160 H 168 H Calcium Phosphorus Magnesium AST Alkaline Phosphatase C-Reactive Protein Total Protein Albumin Lipase Vitamin B12 TSH Urine WBC (Auto) Urine Chloride Urine Total Protein Vancomycin Trough Crossmatch 10/13/16 10/13/16 10/14/16 23:25 Unknown 00:21 WBC RBC Hgb Hct MCV RDW Plt Count Lymph % (Auto) [place] % (Auto) [place] # Seg Neutrophils % Seg Neuts % (Manual) Lymphocytes % (Manual) Monocytes % (Manual) Basophils % (Manual) Nucleated RBC % Seg Neutrophils # Seg Neutrophils # Man Lymphocytes # (Manual) Monocytes # (Manual) Eosinophils # (Manual) Basophils # (Manual) PT INR APTT Heparin Anti-Xa Level POC ABG pH POC ABG pCO2 POC ABG pO2 Sodium 148 H Potassium Chloride 114.6 H Carbon Dioxide 17 L BUN 56 H Creatinine 1.6 H Glucose 151 H POC Glucose 171 H Calcium 7.8 L Phosphorus Magnesium AST Alkaline Phosphatase C-Reactive Protein Total Protein Albumin Lipase Vitamin B12 TSH Urine WBC (Auto) Urine Chloride 10.0 L Urine Total Protein < 4 L Vancomycin Trough Crossmatch 10/14/16 10/14/16 10/14/16 01:22 02:29 03:30 WBC RBC Hgb Hct MCV RDW Plt Count Lymph % (Auto) [place] % (Auto) [place] # Seg Neutrophils % Seg Neuts % (Manual) Lymphocytes % (Manual) Monocytes % (Manual) Basophils % (Manual) Nucleated RBC % Seg Neutrophils # Seg Neutrophils # Man Lymphocytes # (Manual) Monocytes # (Manual) Eosinophils # (Manual) Basophils # (Manual) PT INR APTT Heparin Anti-Xa Level POC ABG pH POC ABG pCO2 POC ABG pO2 Sodium Potassium Chloride Carbon Dioxide BUN Creatinine Glucose POC Glucose 144 H 136 H 143 H Calcium Phosphorus Magnesium AST Alkaline Phosphatase C-Reactive Protein Total Protein Albumin Lipase Vitamin B12 TSH Urine WBC (Auto) Urine Chloride Urine Total Protein Vancomycin Trough Crossmatch 10/14/16 10/14/16 10/14/16 04:28 05:16 05:44 WBC RBC Hgb Hct MCV RDW Plt Count Lymph % (Auto) [place] % (Auto) [place] # Seg Neutrophils % Seg Neuts % (Manual) Lymphocytes % (Manual) Monocytes % (Manual) Basophils % (Manual) Nucleated RBC % Seg Neutrophils # Seg Neutrophils # Man Lymphocytes # (Manual) Monocytes # (Manual) Eosinophils # (Manual) Basophils # (Manual) PT INR APTT Heparin Anti-Xa Level POC ABG pH POC ABG pCO2 28.2 L POC ABG pO2 125 H Sodium Potassium Chloride Carbon Dioxide BUN Creatinine Glucose POC Glucose 133 H 160 H Calcium Phosphorus Magnesium AST Alkaline Phosphatase C-Reactive Protein Total Protein Albumin Lipase Vitamin B12 TSH Urine WBC (Auto) Urine Chloride Urine Total Protein Vancomycin Trough Crossmatch 10/14/16 10/14/16 10/14/16 06:12 06:45 07:03 WBC RBC Hgb Hct MCV RDW Plt Count Lymph % (Auto) [place] % (Auto) [place] # Seg Neutrophils % Seg Neuts % (Manual) Lymphocytes % (Manual) Monocytes % (Manual) Basophils % (Manual) Nucleated RBC % Seg Neutrophils # Seg Neutrophils # Man Lymphocytes # (Manual) Monocytes # (Manual) Eosinophils # (Manual) Basophils # (Manual) PT INR APTT Heparin Anti-Xa Level POC ABG pH POC ABG pCO2 POC ABG pO2 Sodium 149 H Potassium Chloride 115.4 H Carbon Dioxide 17 L BUN 45 H Creatinine 1.5 H Glucose 139 H POC Glucose 149 H Calcium 7.4 L Phosphorus 1.0 L D Magnesium AST Alkaline Phosphatase C-Reactive Protein Total Protein Albumin Lipase Vitamin B12 TSH Urine WBC (Auto) Urine Chloride Urine Total Protein Vancomycin Trough Crossmatch 10/14/16 10/14/16 10/14/16 07:03 08:02 09:16 WBC RBC Hgb Hct MCV RDW Plt Count Lymph % (Auto) [place] % (Auto) [place] # Seg Neutrophils % Seg Neuts % (Manual) Lymphocytes % (Manual) Monocytes % (Manual) Basophils % (Manual) Nucleated RBC % Seg Neutrophils # Seg Neutrophils # Man Lymphocytes # (Manual) Monocytes # (Manual) Eosinophils # (Manual) Basophils # (Manual) PT INR APTT Heparin Anti-Xa Level POC ABG pH POC ABG pCO2 POC ABG pO2 Sodium Potassium Chloride Carbon Dioxide BUN Creatinine Glucose POC Glucose 156 H 158 H Calcium Phosphorus Magnesium AST Alkaline Phosphatase C-Reactive Protein Total Protein Albumin Lipase 738 H Vitamin B12 TSH Urine WBC (Auto) Urine Chloride Urine Total Protein Vancomycin Trough Crossmatch 10/14/16 10/14/16 10/14/16 10:26 11:03 11:57 WBC RBC Hgb Hct MCV RDW Plt Count Lymph % (Auto) [place] % (Auto) [place] # Seg Neutrophils % Seg Neuts % (Manual) Lymphocytes % (Manual) Monocytes % (Manual) Basophils % (Manual) Nucleated RBC % Seg Neutrophils # Seg Neutrophils # Man Lymphocytes # (Manual) Monocytes # (Manual) Eosinophils # (Manual) Basophils # (Manual) PT INR APTT Heparin Anti-Xa Level POC ABG pH 7.198 L POC ABG pCO2 47.5 H POC ABG pO2 Sodium Potassium Chloride Carbon Dioxide BUN Creatinine Glucose POC Glucose 174 H 189 H Calcium Phosphorus Magnesium AST Alkaline Phosphatase C-Reactive Protein Total Protein Albumin Lipase Vitamin B12 TSH Urine WBC (Auto) Urine Chloride Urine Total Protein Vancomycin Trough Crossmatch 10/14/16 10/14/16 10/14/16 12:02 12:02 13:11 WBC 13.4 H RBC 3.60 L Hgb Hct MCV 98 H D RDW 13.1 L Plt Count Lymph % (Auto) [place] % (Auto) [place] # Seg Neutrophils % Seg Neuts % (Manual) Lymphocytes % (Manual) Monocytes % (Manual) Basophils % (Manual) Nucleated RBC % Seg Neutrophils # Seg Neutrophils # Man Lymphocytes # (Manual) Monocytes # (Manual) Eosinophils # (Manual) Basophils # (Manual) PT INR APTT Heparin Anti-Xa Level POC ABG pH POC ABG pCO2 POC ABG pO2 Sodium Potassium Chloride 110.7 H Carbon Dioxide 19 L BUN 38 H Creatinine 1.4 H Glucose 182 H POC Glucose 173 H Calcium 7.5 L Phosphorus Magnesium AST Alkaline Phosphatase C-Reactive Protein Total Protein Albumin Lipase Vitamin B12 TSH Urine WBC (Auto) Urine Chloride Urine Total Protein Vancomycin Trough Crossmatch 10/14/16 10/14/16 10/14/16 14:24 15:31 16:36 WBC RBC Hgb Hct MCV RDW Plt Count Lymph % (Auto) [place] % (Auto) [place] # Seg Neutrophils % Seg Neuts % (Manual) Lymphocytes % (Manual) Monocytes % (Manual) Basophils % (Manual) Nucleated RBC % Seg Neutrophils # Seg Neutrophils # Man Lymphocytes # (Manual) Monocytes # (Manual) Eosinophils # (Manual) Basophils # (Manual) PT INR APTT Heparin Anti-Xa Level POC ABG pH POC ABG pCO2 POC ABG pO2 Sodium Potassium Chloride Carbon Dioxide BUN Creatinine Glucose POC Glucose 123 H 124 H 156 H Calcium Phosphorus Magnesium AST Alkaline Phosphatase C-Reactive Protein Total Protein Albumin Lipase Vitamin B12 TSH Urine WBC (Auto) Urine Chloride Urine Total Protein Vancomycin Trough Crossmatch 10/14/16 10/14/16 10/14/16 17:43 19:00 20:08 WBC RBC Hgb Hct MCV RDW Plt Count Lymph % (Auto) [place] % (Auto) [place] # Seg Neutrophils % Seg Neuts % (Manual) Lymphocytes % (Manual) Monocytes % (Manual) Basophils % (Manual) Nucleated RBC % Seg Neutrophils # Seg Neutrophils # Man Lymphocytes # (Manual) Monocytes # (Manual) Eosinophils # (Manual) Basophils # (Manual) PT INR APTT Heparin Anti-Xa Level POC ABG pH POC ABG pCO2 POC ABG pO2 Sodium Potassium Chloride Carbon Dioxide BUN Creatinine Glucose POC Glucose 154 H 123 H 138 H Calcium Phosphorus Magnesium AST Alkaline Phosphatase C-Reactive Protein Total Protein Albumin Lipase Vitamin B12 TSH Urine WBC (Auto) Urine Chloride Urine Total Protein Vancomycin Trough Crossmatch 10/14/16 10/14/16 10/14/16 21:17 22:25 23:37 WBC RBC Hgb Hct MCV RDW Plt Count Lymph % (Auto) [place] % (Auto) [place] # Seg Neutrophils % Seg Neuts % (Manual) Lymphocytes % (Manual) Monocytes % (Manual) Basophils % (Manual) Nucleated RBC % Seg Neutrophils # Seg Neutrophils # Man Lymphocytes # (Manual) Monocytes # (Manual) Eosinophils # (Manual) Basophils # (Manual) PT INR APTT Heparin Anti-Xa Level POC ABG pH POC ABG pCO2 POC ABG pO2 Sodium Potassium Chloride Carbon Dioxide BUN Creatinine Glucose POC Glucose 148 H 132 H 137 H Calcium Phosphorus Magnesium AST Alkaline Phosphatase C-Reactive Protein Total Protein Albumin Lipase Vitamin B12 TSH Urine WBC (Auto) Urine Chloride Urine Total Protein Vancomycin Trough Crossmatch 10/15/16 10/15/16 10/15/16 00:49 01:53 03:06 WBC RBC Hgb Hct MCV RDW Plt Count Lymph % (Auto) [place] % (Auto) [place] # Seg Neutrophils % Seg Neuts % (Manual) Lymphocytes % (Manual) Monocytes % (Manual) Basophils % (Manual) Nucleated RBC % Seg Neutrophils # Seg Neutrophils # Man Lymphocytes # (Manual) Monocytes # (Manual) Eosinophils # (Manual) Basophils # (Manual) PT INR APTT Heparin Anti-Xa Level POC ABG pH POC ABG pCO2 POC ABG pO2 Sodium Potassium Chloride Carbon Dioxide BUN Creatinine Glucose POC Glucose 132 H 134 H 134 H Calcium Phosphorus Magnesium AST Alkaline Phosphatase C-Reactive Protein Total Protein Albumin Lipase Vitamin B12 TSH Urine WBC (Auto) Urine Chloride Urine Total Protein Vancomycin Trough Crossmatch 10/15/16 10/15/16 10/15/16 04:40 04:46 06:21 WBC RBC Hgb Hct MCV RDW Plt Count Lymph % (Auto) [place] % (Auto) [place] # Seg Neutrophils % Seg Neuts % (Manual) Lymphocytes % (Manual) Monocytes % (Manual) Basophils % (Manual) Nucleated RBC % Seg Neutrophils # Seg Neutrophils # Man Lymphocytes # (Manual) Monocytes # (Manual) Eosinophils # (Manual) Basophils # (Manual) PT INR APTT Heparin Anti-Xa Level POC ABG pH POC ABG pCO2 30.7 L POC ABG pO2 108 H Sodium Potassium Chloride 109.0 H Carbon Dioxide 17 L BUN 27 H Creatinine Glucose 124 H POC Glucose 160 H Calcium 7.5 L Phosphorus Magnesium AST 79 H Alkaline Phosphatase C-Reactive Protein Total Protein 5.5 L Albumin 3.0 L Lipase Vitamin B12 TSH Urine WBC (Auto) Urine Chloride Urine Total Protein Vancomycin Trough Crossmatch 10/15/16 10/15/16 10/15/16 07:12 08:01 09:03 WBC RBC Hgb Hct MCV RDW Plt Count Lymph % (Auto) [place] % (Auto) [place] # Seg Neutrophils % Seg Neuts % (Manual) Lymphocytes % (Manual) Monocytes % (Manual) Basophils % (Manual) Nucleated RBC % Seg Neutrophils # Seg Neutrophils # Man Lymphocytes # (Manual) Monocytes # (Manual) Eosinophils # (Manual) Basophils # (Manual) PT INR APTT Heparin Anti-Xa Level POC ABG pH POC ABG pCO2 POC ABG pO2 Sodium Potassium Chloride Carbon Dioxide BUN Creatinine Glucose POC Glucose 179 H 187 H 165 H Calcium Phosphorus Magnesium AST Alkaline Phosphatase C-Reactive Protein Total Protein Albumin Lipase Vitamin B12 TSH Urine WBC (Auto) Urine Chloride Urine Total Protein Vancomycin Trough Crossmatch 10/15/16 10/15/16 10/15/16 10:06 10:06 10:07 WBC 12.1 H RBC 3.01 L Hgb 9.7 L Hct 29.6 L MCV 98 H RDW Plt Count 129 L Lymph % (Auto) [place] % (Auto) [place] # Seg Neutrophils % Seg Neuts % (Manual) Lymphocytes % (Manual) Monocytes % (Manual) Basophils % (Manual) Nucleated RBC % Seg Neutrophils # Seg Neutrophils # Man Lymphocytes # (Manual) Monocytes # (Manual) Eosinophils # (Manual) Basophils # (Manual) PT INR APTT Heparin Anti-Xa Level POC ABG pH POC ABG pCO2 POC ABG pO2 Sodium Potassium 3.2 L D Chloride 109.6 H Carbon Dioxide 18 L BUN 22 H Creatinine Glucose 127 H POC Glucose 147 H Calcium 7.0 L Phosphorus Magnesium AST Alkaline Phosphatase C-Reactive Protein Total Protein Albumin Lipase Vitamin B12 TSH Urine WBC (Auto) Urine Chloride Urine Total Protein Vancomycin Trough Crossmatch 10/15/16 10/15/16 10/15/16 11:05 11:06 11:57 WBC RBC Hgb Hct MCV RDW Plt Count Lymph % (Auto) [place] % (Auto) [place] # Seg Neutrophils % Seg Neuts % (Manual) Lymphocytes % (Manual) Monocytes % (Manual) Basophils % (Manual) Nucleated RBC % Seg Neutrophils # Seg Neutrophils # Man Lymphocytes # (Manual) Monocytes # (Manual) Eosinophils # (Manual) Basophils # (Manual) PT INR APTT Heparin Anti-Xa Level POC ABG pH 7.305 L POC ABG pCO2 POC ABG pO2 Sodium Potassium Chloride Carbon Dioxide BUN Creatinine Glucose POC Glucose 145 H Calcium Phosphorus Magnesium AST Alkaline Phosphatase C-Reactive Protein Total Protein Albumin Lipase Vitamin B12 TSH Urine WBC (Auto) 7.0 H Urine Chloride Urine Total Protein Vancomycin Trough Crossmatch 10/15/16 10/15/16 10/15/16 12:04 13:59 15:24 WBC RBC Hgb Hct MCV RDW Plt Count Lymph % (Auto) [place] % (Auto) [place] # Seg Neutrophils % Seg Neuts % (Manual) Lymphocytes % (Manual) Monocytes % (Manual) Basophils % (Manual) Nucleated RBC % Seg Neutrophils # Seg Neutrophils # Man Lymphocytes # (Manual) Monocytes # (Manual) Eosinophils # (Manual) Basophils # (Manual) PT INR APTT Heparin Anti-Xa Level POC ABG pH POC ABG pCO2 POC ABG pO2 Sodium Potassium Chloride Carbon Dioxide BUN Creatinine Glucose POC Glucose 123 H 147 H 153 H Calcium Phosphorus Magnesium AST Alkaline Phosphatase C-Reactive Protein Total Protein Albumin Lipase Vitamin B12 TSH Urine WBC (Auto) Urine Chloride Urine Total Protein Vancomycin Trough Crossmatch 10/15/16 10/15/16 10/15/16 16:30 17:34 18:30 WBC RBC Hgb Hct MCV RDW Plt Count Lymph % (Auto) [place] % (Auto) [place] # Seg Neutrophils % Seg Neuts % (Manual) Lymphocytes % (Manual) Monocytes % (Manual) Basophils % (Manual) Nucleated RBC % Seg Neutrophils # Seg Neutrophils # Man Lymphocytes # (Manual) Monocytes # (Manual) Eosinophils # (Manual) Basophils # (Manual) PT INR APTT Heparin Anti-Xa Level POC ABG pH POC ABG pCO2 POC ABG pO2 Sodium Potassium Chloride Carbon Dioxide BUN Creatinine Glucose POC Glucose 223 H 236 H 164 H Calcium Phosphorus Magnesium AST Alkaline Phosphatase C-Reactive Protein Total Protein Albumin Lipase Vitamin B12 TSH Urine WBC (Auto) Urine Chloride Urine Total Protein Vancomycin Trough Crossmatch 10/15/16 10/15/16 10/15/16 19:14 20:31 21:23 WBC RBC Hgb Hct MCV RDW Plt Count Lymph % (Auto) [place] % (Auto) [place] # Seg Neutrophils % Seg Neuts % (Manual) Lymphocytes % (Manual) Monocytes % (Manual) Basophils % (Manual) Nucleated RBC % Seg Neutrophils # Seg Neutrophils # Man Lymphocytes # (Manual) Monocytes # (Manual) Eosinophils # (Manual) Basophils # (Manual) PT INR APTT Heparin Anti-Xa Level POC ABG pH POC ABG pCO2 POC ABG pO2 Sodium Potassium Chloride Carbon Dioxide BUN Creatinine Glucose POC Glucose 138 H 158 H 158 H Calcium Phosphorus Magnesium AST Alkaline Phosphatase C-Reactive Protein Total Protein Albumin Lipase Vitamin B12 TSH Urine WBC (Auto) Urine Chloride Urine Total Protein Vancomycin Trough Crossmatch 10/15/16 10/15/16 10/16/16 22:04 22:57 00:11 WBC RBC Hgb Hct MCV RDW Plt Count Lymph % (Auto) [place] % (Auto) [place] # Seg Neutrophils % Seg Neuts % (Manual) Lymphocytes % (Manual) Monocytes % (Manual) Basophils % (Manual) Nucleated RBC % Seg Neutrophils # Seg Neutrophils # Man Lymphocytes # (Manual) Monocytes # (Manual) Eosinophils # (Manual) Basophils # (Manual) PT INR APTT Heparin Anti-Xa Level POC ABG pH POC ABG pCO2 POC ABG pO2 Sodium Potassium Chloride Carbon Dioxide BUN Creatinine Glucose POC Glucose 168 H 213 H 166 H Calcium Phosphorus Magnesium AST Alkaline Phosphatase C-Reactive Protein Total Protein Albumin Lipase Vitamin B12 TSH Urine WBC (Auto) Urine Chloride Urine Total Protein Vancomycin Trough Crossmatch 10/16/16 10/16/16 10/16/16 01:16 02:32 03:38 WBC RBC Hgb Hct MCV RDW Plt Count Lymph % (Auto) [place] % (Auto) [place] # Seg Neutrophils % Seg Neuts % (Manual) Lymphocytes % (Manual) Monocytes % (Manual) Basophils % (Manual) Nucleated RBC % Seg Neutrophils # Seg Neutrophils # Man Lymphocytes # (Manual) Monocytes # (Manual) Eosinophils # (Manual) Basophils # (Manual) PT INR APTT Heparin Anti-Xa Level POC ABG pH POC ABG pCO2 POC ABG pO2 Sodium Potassium Chloride Carbon Dioxide BUN Creatinine Glucose POC Glucose 171 H 164 H 147 H Calcium Phosphorus Magnesium AST Alkaline Phosphatase C-Reactive Protein Total Protein Albumin Lipase Vitamin B12 TSH Urine WBC (Auto) Urine Chloride Urine Total Protein Vancomycin Trough Crossmatch 10/16/16 10/16/16 10/16/16 04:14 04:14 04:49 WBC RBC Hgb Hct MCV RDW Plt Count Lymph % (Auto) [place] % (Auto) [place] # Seg Neutrophils % Seg Neuts % (Manual) Lymphocytes % (Manual) Monocytes % (Manual) Basophils % (Manual) Nucleated RBC % Seg Neutrophils # Seg Neutrophils # Man Lymphocytes # (Manual) Monocytes # (Manual) Eosinophils # (Manual) Basophils # (Manual) PT INR APTT Heparin Anti-Xa Level POC ABG pH POC ABG pCO2 POC ABG pO2 Sodium 147 H Potassium Chloride 110.9 H Carbon Dioxide 19 L BUN Creatinine Glucose 139 H POC Glucose 144 H Calcium 7.3 L Phosphorus 2.3 L Magnesium AST Alkaline Phosphatase C-Reactive Protein Total Protein Albumin Lipase 143 H Vitamin B12 TSH Urine WBC (Auto) Urine Chloride Urine Total Protein Vancomycin Trough Crossmatch 10/16/16 10/16/16 10/16/16 05:03 05:41 05:58 WBC 16.5 H RBC 3.36 L Hgb Hct MCV 98 H RDW 13.1 L Plt Count Lymph % (Auto) 8.5 L [place] % (Auto) 7.6 H [place] # 1.3 H Seg Neutrophils % 83.3 H Seg Neuts % (Manual) Lymphocytes % (Manual) Monocytes % (Manual) Basophils % (Manual) Nucleated RBC % Seg Neutrophils # 13.8 H Seg Neutrophils # Man Lymphocytes # (Manual) Monocytes # (Manual) Eosinophils # (Manual) Basophils # (Manual) PT INR APTT Heparin Anti-Xa Level POC ABG pH POC ABG pCO2 30.7 L POC ABG pO2 128 H Sodium Potassium Chloride Carbon Dioxide BUN Creatinine Glucose POC Glucose 131 H Calcium Phosphorus Magnesium AST Alkaline Phosphatase C-Reactive Protein Total Protein Albumin Lipase Vitamin B12 TSH Urine WBC (Auto) Urine Chloride Urine Total Protein Vancomycin Trough Crossmatch 10/16/16 10/16/16 10/16/16 06:32 09:27 09:35 WBC RBC Hgb Hct MCV RDW Plt Count Lymph % (Auto) [place] % (Auto) [place] # Seg Neutrophils % Seg Neuts % (Manual) Lymphocytes % (Manual) Monocytes % (Manual) Basophils % (Manual) Nucleated RBC % Seg Neutrophils # Seg Neutrophils # Man Lymphocytes # (Manual) Monocytes # (Manual) Eosinophils # (Manual) Basophils # (Manual) PT INR APTT Heparin Anti-Xa Level POC ABG pH POC ABG pCO2 32.8 L POC ABG pO2 137 H Sodium Potassium Chloride Carbon Dioxide BUN Creatinine Glucose POC Glucose 121 H 150 H Calcium Phosphorus Magnesium AST Alkaline Phosphatase C-Reactive Protein Total Protein Albumin Lipase Vitamin B12 TSH Urine WBC (Auto) Urine Chloride Urine Total Protein Vancomycin Trough Crossmatch 10/16/16 10/16/16 10/16/16 10:47 13:27 14:24 WBC RBC Hgb Hct MCV RDW Plt Count Lymph % (Auto) [place] % (Auto) [place] # Seg Neutrophils % Seg Neuts % (Manual) Lymphocytes % (Manual) Monocytes % (Manual) Basophils % (Manual) Nucleated RBC % Seg Neutrophils # Seg Neutrophils # Man Lymphocytes # (Manual) Monocytes # (Manual) Eosinophils # (Manual) Basophils # (Manual) PT INR APTT Heparin Anti-Xa Level POC ABG pH POC ABG pCO2 POC ABG pO2 Sodium Potassium Chloride Carbon Dioxide BUN Creatinine Glucose POC Glucose 184 H 171 H 174 H Calcium Phosphorus Magnesium AST Alkaline Phosphatase C-Reactive Protein Total Protein Albumin Lipase Vitamin B12 TSH Urine WBC (Auto) Urine Chloride Urine Total Protein Vancomycin Trough Crossmatch 10/16/16 10/16/16 10/16/16 15:48 16:26 18:17 WBC RBC Hgb Hct MCV RDW Plt Count Lymph % (Auto) [place] % (Auto) [place] # Seg Neutrophils % Seg Neuts % (Manual) Lymphocytes % (Manual) Monocytes % (Manual) Basophils % (Manual) Nucleated RBC % Seg Neutrophils # Seg Neutrophils # Man Lymphocytes # (Manual) Monocytes # (Manual) Eosinophils # (Manual) Basophils # (Manual) PT INR APTT Heparin Anti-Xa Level POC ABG pH POC ABG pCO2 POC ABG pO2 Sodium Potassium Chloride Carbon Dioxide BUN Creatinine Glucose POC Glucose 205 H 204 H 234 H Calcium Phosphorus Magnesium AST Alkaline Phosphatase C-Reactive Protein Total Protein Albumin Lipase Vitamin B12 TSH Urine WBC (Auto) Urine Chloride Urine Total Protein Vancomycin Trough Crossmatch 10/16/16 10/16/16 10/16/16 19:40 20:33 21:36 WBC RBC Hgb Hct MCV RDW Plt Count Lymph % (Auto) [place] % (Auto) [place] # Seg Neutrophils % Seg Neuts % (Manual) Lymphocytes % (Manual) Monocytes % (Manual) Basophils % (Manual) Nucleated RBC % Seg Neutrophils # Seg Neutrophils # Man Lymphocytes # (Manual) Monocytes # (Manual) Eosinophils # (Manual) Basophils # (Manual) PT INR APTT Heparin Anti-Xa Level POC ABG pH POC ABG pCO2 POC ABG pO2 Sodium Potassium Chloride Carbon Dioxide BUN Creatinine Glucose POC Glucose 167 H 153 H 158 H Calcium Phosphorus Magnesium AST Alkaline Phosphatase C-Reactive Protein Total Protein Albumin Lipase Vitamin B12 TSH Urine WBC (Auto) Urine Chloride Urine Total Protein Vancomycin Trough Crossmatch 10/16/16 10/16/16 10/17/16 22:54 23:48 00:47 WBC RBC Hgb Hct MCV RDW Plt Count Lymph % (Auto) [place] % (Auto) [place] # Seg Neutrophils % Seg Neuts % (Manual) Lymphocytes % (Manual) Monocytes % (Manual) Basophils % (Manual) Nucleated RBC % Seg Neutrophils # Seg Neutrophils # Man Lymphocytes # (Manual) Monocytes # (Manual) Eosinophils # (Manual) Basophils # (Manual) PT INR APTT Heparin Anti-Xa Level POC ABG pH POC ABG pCO2 POC ABG pO2 Sodium Potassium Chloride Carbon Dioxide BUN Creatinine Glucose POC Glucose 180 H 207 H 196 H Calcium Phosphorus Magnesium AST Alkaline Phosphatase C-Reactive Protein Total Protein Albumin Lipase Vitamin B12 TSH Urine WBC (Auto) Urine Chloride Urine Total Protein Vancomycin Trough Crossmatch 10/17/16 10/17/16 10/17/16 01:57 02:49 03:50 WBC RBC Hgb Hct MCV RDW Plt Count Lymph % (Auto) [place] % (Auto) [place] # Seg Neutrophils % Seg Neuts % (Manual) Lymphocytes % (Manual) Monocytes % (Manual) Basophils % (Manual) Nucleated RBC % Seg Neutrophils # Seg Neutrophils # Man Lymphocytes # (Manual) Monocytes # (Manual) Eosinophils # (Manual) Basophils # (Manual) PT INR APTT Heparin Anti-Xa Level POC ABG pH POC ABG pCO2 POC ABG pO2 Sodium Potassium Chloride Carbon Dioxide BUN Creatinine Glucose POC Glucose 180 H 151 H 106 H Calcium Phosphorus Magnesium AST Alkaline Phosphatase C-Reactive Protein Total Protein Albumin Lipase Vitamin B12 TSH Urine WBC (Auto) Urine Chloride Urine Total Protein Vancomycin Trough Crossmatch 10/17/16 10/17/16 10/17/16 04:59 06:03 06:35 WBC RBC Hgb Hct MCV RDW Plt Count Lymph % (Auto) [place] % (Auto) [place] # Seg Neutrophils % Seg Neuts % (Manual) Lymphocytes % (Manual) Monocytes % (Manual) Basophils % (Manual) Nucleated RBC % Seg Neutrophils # Seg Neutrophils # Man Lymphocytes # (Manual) Monocytes # (Manual) Eosinophils # (Manual) Basophils # (Manual) PT INR APTT Heparin Anti-Xa Level POC ABG pH 7.453 H POC ABG pCO2 30.1 L POC ABG pO2 111 H Sodium Potassium Chloride Carbon Dioxide BUN Creatinine Glucose POC Glucose 145 H 157 H Calcium Phosphorus Magnesium AST Alkaline Phosphatase C-Reactive Protein Total Protein Albumin Lipase Vitamin B12 TSH Urine WBC (Auto) Urine Chloride Urine Total Protein Vancomycin Trough Crossmatch 10/17/16 10/17/16 10/17/16 07:08 07:11 08:01 WBC RBC Hgb Hct MCV RDW Plt Count Lymph % (Auto) [place] % (Auto) [place] # Seg Neutrophils % Seg Neuts % (Manual) Lymphocytes % (Manual) Monocytes % (Manual) Basophils % (Manual) Nucleated RBC % Seg Neutrophils # Seg Neutrophils # Man Lymphocytes # (Manual) Monocytes # (Manual) Eosinophils # (Manual) Basophils # (Manual) PT INR APTT Heparin Anti-Xa Level POC ABG pH POC ABG pCO2 POC ABG pO2 Sodium 147 H Potassium Chloride 113.8 H Carbon Dioxide 19 L BUN Creatinine Glucose 136 H POC Glucose 136 H 152 H Calcium 7.7 L Phosphorus Magnesium AST Alkaline Phosphatase C-Reactive Protein Total Protein Albumin Lipase Vitamin B12 TSH Urine WBC (Auto) Urine Chloride Urine Total Protein Vancomycin Trough Crossmatch 10/17/16 10/17/16 10/17/16 08:23 09:17 09:53 WBC 18.1 H RBC 3.01 L Hgb 9.7 L Hct 29.4 L MCV 98 H RDW Plt Count 116 L Lymph % (Auto) [place] % (Auto) [place] # Seg Neutrophils % Seg Neuts % (Manual) 77.0 H Lymphocytes % (Manual) 4.0 L Monocytes % (Manual) 12.0 H Basophils % (Manual) Nucleated RBC % Seg Neutrophils # Seg Neutrophils # Man 13.9 H Lymphocytes # (Manual) 0.7 L Monocytes # (Manual) 2.2 H Eosinophils # (Manual) Basophils # (Manual) PT INR APTT Heparin Anti-Xa Level POC ABG pH POC ABG pCO2 POC ABG pO2 Sodium Potassium Chloride Carbon Dioxide BUN Creatinine Glucose POC Glucose 148 H 137 H Calcium Phosphorus Magnesium AST Alkaline Phosphatase C-Reactive Protein Total Protein Albumin Lipase Vitamin B12 TSH Urine WBC (Auto) Urine Chloride Urine Total Protein Vancomycin Trough Crossmatch 10/17/16 10/17/16 10/17/16 11:43 16:07 17:42 WBC RBC Hgb Hct MCV RDW Plt Count Lymph % (Auto) [place] % (Auto) [place] # Seg Neutrophils % Seg Neuts % (Manual) Lymphocytes % (Manual) Monocytes % (Manual) Basophils % (Manual) Nucleated RBC % Seg Neutrophils # Seg Neutrophils # Man Lymphocytes # (Manual) Monocytes # (Manual) Eosinophils # (Manual) Basophils # (Manual) PT 16.4 H INR 1.33 H APTT 38.8 H Heparin Anti-Xa Level POC ABG pH POC ABG pCO2 POC ABG pO2 Sodium Potassium Chloride Carbon Dioxide BUN Creatinine Glucose POC Glucose 179 H 153 H Calcium Phosphorus Magnesium AST Alkaline Phosphatase C-Reactive Protein Total Protein Albumin Lipase Vitamin B12 TSH Urine WBC (Auto) Urine Chloride Urine Total Protein Vancomycin Trough Crossmatch 10/17/16 10/18/16 10/18/16 22:54 04:37 05:39 WBC RBC Hgb Hct MCV RDW Plt Count Lymph % (Auto) [place] % (Auto) [place] # Seg Neutrophils % Seg Neuts % (Manual) Lymphocytes % (Manual) Monocytes % (Manual) Basophils % (Manual) Nucleated RBC % Seg Neutrophils # Seg Neutrophils # Man Lymphocytes # (Manual) Monocytes # (Manual) Eosinophils # (Manual) Basophils # (Manual) PT INR APTT Heparin Anti-Xa Level 0.27 L POC ABG pH 7.454 H POC ABG pCO2 30.8 L POC ABG pO2 115 H Sodium Potassium Chloride Carbon Dioxide BUN Creatinine Glucose POC Glucose 69 L Calcium Phosphorus Magnesium AST Alkaline Phosphatase C-Reactive Protein Total Protein Albumin Lipase Vitamin B12 TSH Urine WBC (Auto) Urine Chloride Urine Total Protein Vancomycin Trough Crossmatch 10/18/16 10/18/16 10/18/16 06:46 06:46 06:46 WBC 20.5 H RBC 2.62 L Hgb 8.4 L Hct 26.0 L MCV 100 H RDW Plt Count Lymph % (Auto) [place] % (Auto) [place] # Seg Neutrophils % Seg Neuts % (Manual) 75.0 H Lymphocytes % (Manual) 9.0 L Monocytes % (Manual) 14.0 H Basophils % (Manual) Nucleated RBC % Seg Neutrophils # Seg Neutrophils # Man 15.4 H Lymphocytes # (Manual) Monocytes # (Manual) 2.9 H Eosinophils # (Manual) Basophils # (Manual) PT INR APTT Heparin Anti-Xa Level POC ABG pH POC ABG pCO2 POC ABG pO2 Sodium Potassium Chloride 110.6 H Carbon Dioxide BUN Creatinine 1.3 H Glucose 153 H POC Glucose Calcium 8.0 L Phosphorus Magnesium 1.6 L AST Alkaline Phosphatase C-Reactive Protein Total Protein Albumin Lipase Vitamin B12 TSH Urine WBC (Auto) Urine Chloride Urine Total Protein Vancomycin Trough Crossmatch 10/18/16 10/18/16 10/18/16 07:30 11:37 17:51 WBC RBC Hgb Hct MCV RDW Plt Count Lymph % (Auto) [place] % (Auto) [place] # Seg Neutrophils % Seg Neuts % (Manual) Lymphocytes % (Manual) Monocytes % (Manual) Basophils % (Manual) Nucleated RBC % Seg Neutrophils # Seg Neutrophils # Man Lymphocytes # (Manual) Monocytes # (Manual) Eosinophils # (Manual) Basophils # (Manual) PT INR APTT Heparin Anti-Xa Level POC ABG pH POC ABG pCO2 POC ABG pO2 Sodium Potassium Chloride Carbon Dioxide BUN Creatinine Glucose POC Glucose 162 H 156 H 164 H Calcium Phosphorus Magnesium AST Alkaline Phosphatase C-Reactive Protein Total Protein Albumin Lipase Vitamin B12 TSH Urine WBC (Auto) Urine Chloride Urine Total Protein Vancomycin Trough Crossmatch 10/18/16 10/19/16 10/19/16 23:44 03:59 05:13 WBC 18.2 H RBC 2.76 L Hgb 9.0 L Hct 27.7 L MCV 100 H RDW Plt Count Lymph % (Auto) [place] % (Auto) [place] # Seg Neutrophils % Seg Neuts % (Manual) 76.0 H Lymphocytes % (Manual) 10.0 L Monocytes % (Manual) Basophils % (Manual) Nucleated RBC % Seg Neutrophils # Seg Neutrophils # Man 13.8 H Lymphocytes # (Manual) Monocytes # (Manual) Eosinophils # (Manual) Basophils # (Manual) PT INR APTT Heparin Anti-Xa Level POC ABG pH POC ABG pCO2 32.2 L POC ABG pO2 128 H Sodium Potassium Chloride Carbon Dioxide BUN Creatinine Glucose POC Glucose 278 H Calcium Phosphorus Magnesium AST Alkaline Phosphatase C-Reactive Protein Total Protein Albumin Lipase Vitamin B12 TSH Urine WBC (Auto) Urine Chloride Urine Total Protein Vancomycin Trough Crossmatch 10/19/16 10/19/16 10/19/16 06:01 06:30 12:20 WBC RBC Hgb Hct MCV RDW Plt Count Lymph % (Auto) [place] % (Auto) [place] # Seg Neutrophils % Seg Neuts % (Manual) Lymphocytes % (Manual) Monocytes % (Manual) Basophils % (Manual) Nucleated RBC % Seg Neutrophils # Seg Neutrophils # Man Lymphocytes # (Manual) Monocytes # (Manual) Eosinophils # (Manual) Basophils # (Manual) PT INR APTT Heparin Anti-Xa Level POC ABG pH POC ABG pCO2 POC ABG pO2 Sodium Potassium Chloride Carbon Dioxide 18 L BUN Creatinine 1.3 H Glucose 262 H POC Glucose 261 H 349 H Calcium 7.7 L Phosphorus 4.8 H D Magnesium AST Alkaline Phosphatase C-Reactive Protein Total Protein Albumin Lipase Vitamin B12 TSH Urine WBC (Auto) Urine Chloride Urine Total Protein Vancomycin Trough Crossmatch 10/19/16 10/20/16 10/20/16 16:48 00:17 05:20 WBC 22.5 H RBC 2.80 L Hgb 8.9 L Hct 28.3 L MCV 101 H RDW Plt Count Lymph % (Auto) [place] % (Auto) [place] # Seg Neutrophils % Seg Neuts % (Manual) Lymphocytes % (Manual) 10.0 L Monocytes % (Manual) Basophils % (Manual) Nucleated RBC % Seg Neutrophils # Seg Neutrophils # Man 13.3 H Lymphocytes # (Manual) Monocytes # (Manual) 1.1 H Eosinophils # (Manual) 0.7 H Basophils # (Manual) PT INR APTT Heparin Anti-Xa Level POC ABG pH POC ABG pCO2 POC ABG pO2 Sodium Potassium Chloride Carbon Dioxide BUN Creatinine Glucose POC Glucose 248 H 346 H Calcium Phosphorus Magnesium AST Alkaline Phosphatase C-Reactive Protein Total Protein Albumin Lipase Vitamin B12 TSH Urine WBC (Auto) Urine Chloride Urine Total Protein Vancomycin Trough Crossmatch 10/20/16 10/20/16 10/20/16 05:20 05:20 06:05 WBC RBC Hgb Hct MCV RDW Plt Count Lymph % (Auto) [place] % (Auto) [place] # Seg Neutrophils % Seg Neuts % (Manual) Lymphocytes % (Manual) Monocytes % (Manual) Basophils % (Manual) Nucleated RBC % Seg Neutrophils # Seg Neutrophils # Man Lymphocytes # (Manual) Monocytes # (Manual) Eosinophils # (Manual) Basophils # (Manual) PT INR APTT Heparin Anti-Xa Level 0.20 L POC ABG pH POC ABG pCO2 POC ABG pO2 Sodium Potassium Chloride Carbon Dioxide BUN 20 H Creatinine Glucose 374 H POC Glucose 337 H Calcium 8.3 L Phosphorus Magnesium AST Alkaline Phosphatase C-Reactive Protein Total Protein Albumin Lipase Vitamin B12 TSH Urine WBC (Auto) Urine Chloride Urine Total Protein Vancomycin Trough Crossmatch 10/20/16 10/20/16 10/20/16 11:49 13:59 17:56 WBC RBC Hgb Hct MCV RDW Plt Count Lymph % (Auto) [place] % (Auto) [place] # Seg Neutrophils % Seg Neuts % (Manual) Lymphocytes % (Manual) Monocytes % (Manual) Basophils % (Manual) Nucleated RBC % Seg Neutrophils # Seg Neutrophils # Man Lymphocytes # (Manual) Monocytes # (Manual) Eosinophils # (Manual) Basophils # (Manual) PT INR APTT Heparin Anti-Xa Level 2.00 H POC ABG pH POC ABG pCO2 POC ABG pO2 Sodium Potassium Chloride Carbon Dioxide BUN Creatinine Glucose POC Glucose 305 H 362 H Calcium Phosphorus Magnesium AST Alkaline Phosphatase C-Reactive Protein Total Protein Albumin Lipase Vitamin B12 TSH Urine WBC (Auto) Urine Chloride Urine Total Protein Vancomycin Trough Crossmatch 10/20/16 10/21/16 10/21/16 23:52 05:00 05:49 WBC 22.9 H RBC 2.49 L Hgb 7.7 L Hct 25.6 L MCV 103 H RDW Plt Count Lymph % (Auto) [place] % (Auto) [place] # Seg Neutrophils % Seg Neuts % (Manual) 94.0 H Lymphocytes % (Manual) 1.0 L Monocytes % (Manual) Basophils % (Manual) Nucleated RBC % Seg Neutrophils # Seg Neutrophils # Man 21.5 H Lymphocytes # (Manual) 0.2 L Monocytes # (Manual) 1.1 H Eosinophils # (Manual) Basophils # (Manual) PT INR APTT Heparin Anti-Xa Level POC ABG pH POC ABG pCO2 POC ABG pO2 Sodium Potassium Chloride Carbon Dioxide BUN Creatinine Glucose POC Glucose 252 H 180 H Calcium Phosphorus Magnesium AST Alkaline Phosphatase C-Reactive Protein Total Protein Albumin Lipase Vitamin B12 TSH Urine WBC (Auto) Urine Chloride Urine Total Protein Vancomycin Trough Crossmatch 10/21/16 10/21/16 10/21/16 11:47 11:49 14:10 WBC RBC Hgb Hct MCV RDW Plt Count Lymph % (Auto) [place] % (Auto) [place] # Seg Neutrophils % Seg Neuts % (Manual) Lymphocytes % (Manual) Monocytes % (Manual) Basophils % (Manual) Nucleated RBC % Seg Neutrophils # Seg Neutrophils # Man Lymphocytes # (Manual) Monocytes # (Manual) Eosinophils # (Manual) Basophils # (Manual) PT INR APTT Heparin Anti-Xa Level POC ABG pH POC ABG pCO2 POC ABG pO2 Sodium Potassium Chloride Carbon Dioxide BUN Creatinine Glucose POC Glucose 50 L 56 L 140 H Calcium Phosphorus Magnesium AST Alkaline Phosphatase C-Reactive Protein Total Protein Albumin Lipase Vitamin B12 TSH Urine WBC (Auto) Urine Chloride Urine Total Protein Vancomycin Trough Crossmatch 10/21/16 10/21/16 10/22/16 18:24 Unknown 00:07 WBC RBC Hgb Hct MCV RDW Plt Count Lymph % (Auto) [place] % (Auto) [place] # Seg Neutrophils % Seg Neuts % (Manual) Lymphocytes % (Manual) Monocytes % (Manual) Basophils % (Manual) Nucleated RBC % Seg Neutrophils # Seg Neutrophils # Man Lymphocytes # (Manual) Monocytes # (Manual) Eosinophils # (Manual) Basophils # (Manual) PT INR APTT Heparin Anti-Xa Level POC ABG pH POC ABG pCO2 POC ABG pO2 Sodium 150 H Potassium 3.1 L Chloride 112.4 H Carbon Dioxide BUN 25 H Creatinine 1.4 H Glucose POC Glucose 175 H 218 H Calcium 8.0 L Phosphorus Magnesium AST Alkaline Phosphatase C-Reactive Protein Total Protein Albumin Lipase Vitamin B12 TSH Urine WBC (Auto) Urine Chloride Urine Total Protein Vancomycin Trough Crossmatch 10/22/16 10/22/16 10/22/16 04:20 04:20 10:25 WBC 20.8 H RBC 2.37 L Hgb 7.5 L Hct 23.9 L MCV 101 H RDW Plt Count Lymph % (Auto) [place] % (Auto) [place] # Seg Neutrophils % Seg Neuts % (Manual) 89.0 H Lymphocytes % (Manual) 7.0 L Monocytes % (Manual) Basophils % (Manual) Nucleated RBC % Seg Neutrophils # Seg Neutrophils # Man 18.5 H Lymphocytes # (Manual) Monocytes # (Manual) Eosinophils # (Manual) Basophils # (Manual) 0.2 H PT INR APTT Heparin Anti-Xa Level POC ABG pH POC ABG pCO2 POC ABG pO2 Sodium 148 H Potassium 2.9 L* Chloride 109.4 H Carbon Dioxide BUN 26 H Creatinine Glucose 140 H POC Glucose Calcium 7.5 L Phosphorus Magnesium AST Alkaline Phosphatase C-Reactive Protein Total Protein Albumin Lipase Vitamin B12 976.8 H TSH Urine WBC (Auto) Urine Chloride Urine Total Protein Vancomycin Trough Crossmatch 10/22/16 10/22/16 10/22/16 10:25 14:50 18:16 WBC RBC Hgb Hct MCV RDW Plt Count Lymph % (Auto) [place] % (Auto) [place] # Seg Neutrophils % Seg Neuts % (Manual) Lymphocytes % (Manual) Monocytes % (Manual) Basophils % (Manual) Nucleated RBC % Seg Neutrophils # Seg Neutrophils # Man Lymphocytes # (Manual) Monocytes # (Manual) Eosinophils # (Manual) Basophils # (Manual) PT INR APTT Heparin Anti-Xa Level POC ABG pH POC ABG pCO2 POC ABG pO2 Sodium Potassium Chloride Carbon Dioxide BUN Creatinine Glucose POC Glucose 193 H Calcium Phosphorus Magnesium AST Alkaline Phosphatase C-Reactive Protein Total Protein Albumin Lipase Vitamin B12 TSH 0.143 L 0.162 L Urine WBC (Auto) Urine Chloride Urine Total Protein Vancomycin Trough Crossmatch 10/22/16 10/22/16 10/22/16 20:00 20:00 20:00 WBC 24.1 H RBC 2.58 L Hgb 8.2 L Hct 26.4 L MCV 102 H RDW Plt Count Lymph % (Auto) [place] % (Auto) [place] # Seg Neutrophils % Seg Neuts % (Manual) 74.0 H Lymphocytes % (Manual) 7.0 L Monocytes % (Manual) Basophils % (Manual) Nucleated RBC % Seg Neutrophils # Seg Neutrophils # Man 17.8 H Lymphocytes # (Manual) Monocytes # (Manual) Eosinophils # (Manual) Basophils # (Manual) PT INR APTT Heparin Anti-Xa Level 1.92 H POC ABG pH POC ABG pCO2 POC ABG pO2 Sodium Potassium Chloride Carbon Dioxide BUN Creatinine Glucose POC Glucose Calcium Phosphorus Magnesium AST Alkaline Phosphatase C-Reactive Protein Total Protein Albumin Lipase Vitamin B12 TSH Urine WBC (Auto) Urine Chloride Urine Total Protein Vancomycin Trough Crossmatch See Detail 10/23/16 10/23/16 10/23/16 00:21 06:09 12:07 WBC RBC Hgb Hct MCV RDW Plt Count Lymph % (Auto) [place] % (Auto) [place] # Seg Neutrophils % Seg Neuts % (Manual) Lymphocytes % (Manual) Monocytes % (Manual) Basophils % (Manual) Nucleated RBC % Seg Neutrophils # Seg Neutrophils # Man Lymphocytes # (Manual) Monocytes # (Manual) Eosinophils # (Manual) Basophils # (Manual) PT INR APTT Heparin Anti-Xa Level POC ABG pH POC ABG pCO2 POC ABG pO2 Sodium Potassium Chloride Carbon Dioxide BUN Creatinine Glucose POC Glucose 283 H 241 H 340 H Calcium Phosphorus Magnesium AST Alkaline Phosphatase C-Reactive Protein Total Protein Albumin Lipase Vitamin B12 TSH Urine WBC (Auto) Urine Chloride Urine Total Protein Vancomycin Trough Crossmatch 10/23/16 10/23/16 10/23/16 14:01 16:00 17:59 WBC RBC Hgb Hct MCV RDW Plt Count Lymph % (Auto) [place] % (Auto) [place] # Seg Neutrophils % Seg Neuts % (Manual) Lymphocytes % (Manual) Monocytes % (Manual) Basophils % (Manual) Nucleated RBC % Seg Neutrophils # Seg Neutrophils # Man Lymphocytes # (Manual) Monocytes # (Manual) Eosinophils # (Manual) Basophils # (Manual) PT INR APTT Heparin Anti-Xa Level 0.19 L POC ABG pH POC ABG pCO2 32.4 L POC ABG pO2 Sodium Potassium Chloride Carbon Dioxide BUN Creatinine Glucose POC Glucose 245 H Calcium Phosphorus Magnesium AST Alkaline Phosphatase C-Reactive Protein Total Protein Albumin Lipase Vitamin B12 TSH Urine WBC (Auto) Urine Chloride Urine Total Protein Vancomycin Trough Crossmatch 10/23/16 10/23/16 10/23/16 22:55 Unknown Unknown WBC 22.6 H RBC 3.26 L Hgb Hct MCV RDW 17.1 H Plt Count Lymph % (Auto) [place] % (Auto) [place] # Seg Neutrophils % Seg Neuts % (Manual) Lymphocytes % (Manual) 11.0 L Monocytes % (Manual) Basophils % (Manual) Nucleated RBC % Seg Neutrophils # Seg Neutrophils # Man 14.0 H Lymphocytes # (Manual) Monocytes # (Manual) Eosinophils # (Manual) Basophils # (Manual) PT INR APTT Heparin Anti-Xa Level 0.17 L 0.15 L POC ABG pH POC ABG pCO2 POC ABG pO2 Sodium Potassium Chloride Carbon Dioxide BUN Creatinine Glucose POC Glucose Calcium Phosphorus Magnesium AST Alkaline Phosphatase C-Reactive Protein Total Protein Albumin Lipase Vitamin B12 TSH Urine WBC (Auto) Urine Chloride Urine Total Protein Vancomycin Trough Crossmatch 10/23/16 10/24/16 10/24/16 Unknown 00:05 05:30 WBC RBC Hgb Hct MCV RDW Plt Count Lymph % (Auto) [place] % (Auto) [place] # Seg Neutrophils % Seg Neuts % (Manual) Lymphocytes % (Manual) Monocytes % (Manual) Basophils % (Manual) Nucleated RBC % Seg Neutrophils # Seg Neutrophils # Man Lymphocytes # (Manual) Monocytes # (Manual) Eosinophils # (Manual) Basophils # (Manual) PT INR APTT Heparin Anti-Xa Level 0.13 L POC ABG pH POC ABG pCO2 POC ABG pO2 Sodium Potassium Chloride 111.2 H Carbon Dioxide 20 L BUN 25 H Creatinine Glucose 227 H POC Glucose 118 H Calcium 7.1 L Phosphorus Magnesium AST Alkaline Phosphatase C-Reactive Protein Total Protein Albumin Lipase Vitamin B12 TSH Urine WBC (Auto) Urine Chloride Urine Total Protein Vancomycin Trough Crossmatch 10/24/16 10/24/16 10/24/16 11:00 11:00 12:06 WBC 17.6 H RBC 2.92 L Hgb 9.2 L Hct 28.3 L MCV RDW 16.9 H Plt Count Lymph % (Auto) [place] % (Auto) [place] # Seg Neutrophils % Seg Neuts % (Manual) Lymphocytes % (Manual) Monocytes % (Manual) Basophils % (Manual) Nucleated RBC % Seg Neutrophils # Seg Neutrophils # Man Lymphocytes # (Manual) Monocytes # (Manual) Eosinophils # (Manual) Basophils # (Manual) PT INR APTT Heparin Anti-Xa Level 0.27 L POC ABG pH POC ABG pCO2 POC ABG pO2 Sodium Potassium Chloride Carbon Dioxide BUN Creatinine Glucose POC Glucose 166 H Calcium Phosphorus Magnesium AST Alkaline Phosphatase C-Reactive Protein Total Protein Albumin Lipase Vitamin B12 TSH Urine WBC (Auto) Urine Chloride Urine Total Protein Vancomycin Trough Crossmatch 10/24/16 10/25/16 10/25/16 12:27 00:49 03:30 WBC RBC Hgb 8.8 L Hct 28.1 L MCV RDW Plt Count Lymph % (Auto) [place] % (Auto) [place] # Seg Neutrophils % Seg Neuts % (Manual) Lymphocytes % (Manual) Monocytes % (Manual) Basophils % (Manual) Nucleated RBC % Seg Neutrophils # Seg Neutrophils # Man Lymphocytes # (Manual) Monocytes # (Manual) Eosinophils # (Manual) Basophils # (Manual) PT INR APTT Heparin Anti-Xa Level POC ABG pH POC ABG pCO2 33.9 L POC ABG pO2 Sodium Potassium Chloride Carbon Dioxide BUN Creatinine Glucose POC Glucose 121 H Calcium Phosphorus Magnesium AST Alkaline Phosphatase C-Reactive Protein Total Protein Albumin Lipase Vitamin B12 TSH Urine WBC (Auto) Urine Chloride Urine Total Protein Vancomycin Trough Crossmatch 10/25/16 10/25/16 10/25/16 09:49 12:10 19:25 WBC 21.1 H RBC 3.02 L Hgb 9.3 L Hct 28.9 L MCV RDW 16.3 H Plt Count Lymph % (Auto) [place] % (Auto) [place] # Seg Neutrophils % Seg Neuts % (Manual) 81.0 H Lymphocytes % (Manual) 9.0 L Monocytes % (Manual) Basophils % (Manual) Nucleated RBC % Seg Neutrophils # Seg Neutrophils # Man 17.1 H Lymphocytes # (Manual) Monocytes # (Manual) Eosinophils # (Manual) Basophils # (Manual) PT INR APTT Heparin Anti-Xa Level POC ABG pH POC ABG pCO2 POC ABG pO2 Sodium Potassium Chloride Carbon Dioxide BUN Creatinine Glucose POC Glucose 158 H 151 H Calcium Phosphorus Magnesium AST Alkaline Phosphatase C-Reactive Protein Total Protein Albumin Lipase Vitamin B12 TSH Urine WBC (Auto) Urine Chloride Urine Total Protein Vancomycin Trough Crossmatch 10/26/16 10/26/16 10/26/16 00:20 01:09 05:02 WBC 22.2 H RBC 2.89 L Hgb 8.7 L Hct 27.8 L MCV RDW 16.4 H Plt Count Lymph % (Auto) [place] % (Auto) [place] # Seg Neutrophils % Seg Neuts % (Manual) Lymphocytes % (Manual) Monocytes % (Manual) Basophils % (Manual) Nucleated RBC % Seg Neutrophils # Seg Neutrophils # Man Lymphocytes # (Manual) Monocytes # (Manual) Eosinophils # (Manual) Basophils # (Manual) PT INR APTT Heparin Anti-Xa Level POC ABG pH POC ABG pCO2 POC ABG pO2 Sodium Potassium Chloride Carbon Dioxide BUN Creatinine Glucose POC Glucose 44 L 112 H Calcium Phosphorus Magnesium AST Alkaline Phosphatase C-Reactive Protein Total Protein Albumin Lipase Vitamin B12 TSH Urine WBC (Auto) Urine Chloride Urine Total Protein Vancomycin Trough Crossmatch 10/26/16 10/26/16 10/26/16 05:02 12:11 12:14 WBC RBC Hgb Hct MCV RDW Plt Count Lymph % (Auto) [place] % (Auto) [place] # Seg Neutrophils % Seg Neuts % (Manual) Lymphocytes % (Manual) Monocytes % (Manual) Basophils % (Manual) Nucleated RBC % Seg Neutrophils # Seg Neutrophils # Man Lymphocytes # (Manual) Monocytes # (Manual) Eosinophils # (Manual) Basophils # (Manual) PT INR APTT Heparin Anti-Xa Level POC ABG pH POC ABG pCO2 32.0 L POC ABG pO2 33 L Sodium Potassium 3.2 L D Chloride Carbon Dioxide 20 L BUN 24 H Creatinine Glucose 104 H POC Glucose 194 H Calcium 7.7 L Phosphorus Magnesium AST Alkaline Phosphatase C-Reactive Protein Total Protein Albumin Lipase Vitamin B12 TSH Urine WBC (Auto) Urine Chloride Urine Total Protein Vancomycin Trough Crossmatch 10/26/16 10/26/16 10/27/16 15:28 17:23 00:04 WBC RBC Hgb Hct MCV RDW Plt Count Lymph % (Auto) [place] % (Auto) [place] # Seg Neutrophils % Seg Neuts % (Manual) Lymphocytes % (Manual) Monocytes % (Manual) Basophils % (Manual) Nucleated RBC % Seg Neutrophils # Seg Neutrophils # Man Lymphocytes # (Manual) Monocytes # (Manual) Eosinophils # (Manual) Basophils # (Manual) PT INR APTT Heparin Anti-Xa Level POC ABG pH POC ABG pCO2 33.7 L POC ABG pO2 Sodium Potassium Chloride Carbon Dioxide BUN Creatinine Glucose POC Glucose 181 H 230 H Calcium Phosphorus Magnesium AST Alkaline Phosphatase C-Reactive Protein Total Protein Albumin Lipase Vitamin B12 TSH Urine WBC (Auto) Urine Chloride Urine Total Protein Vancomycin Trough Crossmatch 10/27/16 10/27/16 10/27/16 05:15 05:15 05:38 WBC 25.5 H RBC 3.07 L Hgb 9.4 L Hct 30.1 L MCV 98 H RDW 16.4 H Plt Count 527 H Lymph % (Auto) [place] % (Auto) [place] # Seg Neutrophils % Seg Neuts % (Manual) Lymphocytes % (Manual) Monocytes % (Manual) Basophils % (Manual) Nucleated RBC % Seg Neutrophils # Seg Neutrophils # Man Lymphocytes # (Manual) Monocytes # (Manual) Eosinophils # (Manual) Basophils # (Manual) PT INR APTT Heparin Anti-Xa Level POC ABG pH POC ABG pCO2 POC ABG pO2 Sodium Potassium Chloride Carbon Dioxide 19 L BUN 23 H Creatinine Glucose 160 H POC Glucose 168 H Calcium 8.0 L Phosphorus Magnesium AST Alkaline Phosphatase C-Reactive Protein Total Protein Albumin Lipase Vitamin B12 TSH Urine WBC (Auto) Urine Chloride Urine Total Protein Vancomycin Trough Crossmatch 10/27/16 10/27/16 10/27/16 11:59 18:35 23:48 WBC RBC Hgb Hct MCV RDW Plt Count Lymph % (Auto) [place] % (Auto) [place] # Seg Neutrophils % Seg Neuts % (Manual) Lymphocytes % (Manual) Monocytes % (Manual) Basophils % (Manual) Nucleated RBC % Seg Neutrophils # Seg Neutrophils # Man Lymphocytes # (Manual) Monocytes # (Manual) Eosinophils # (Manual) Basophils # (Manual) PT INR APTT Heparin Anti-Xa Level POC ABG pH POC ABG pCO2 POC ABG pO2 Sodium Potassium Chloride Carbon Dioxide BUN Creatinine Glucose POC Glucose 197 H 318 H 316 H Calcium Phosphorus Magnesium AST Alkaline Phosphatase C-Reactive Protein Total Protein Albumin Lipase Vitamin B12 TSH Urine WBC (Auto) Urine Chloride Urine Total Protein Vancomycin Trough Crossmatch 10/28/16 10/28/16 10/28/16 03:13 04:10 04:10 WBC 18.8 H RBC 2.64 L Hgb 8.1 L Hct 26.1 L MCV 99 H RDW 16.2 H Plt Count 544 H Lymph % (Auto) [place] % (Auto) [place] # Seg Neutrophils % Seg Neuts % (Manual) Lymphocytes % (Manual) Monocytes % (Manual) Basophils % (Manual) Nucleated RBC % Seg Neutrophils # Seg Neutrophils # Man Lymphocytes # (Manual) Monocytes # (Manual) Eosinophils # (Manual) Basophils # (Manual) PT INR APTT Heparin Anti-Xa Level POC ABG pH POC ABG pCO2 POC ABG pO2 Sodium Potassium Chloride Carbon Dioxide 21 L BUN 24 H Creatinine Glucose 302 H POC Glucose 304 H Calcium 7.7 L Phosphorus Magnesium AST Alkaline Phosphatase C-Reactive Protein Total Protein Albumin Lipase Vitamin B12 TSH Urine WBC (Auto) Urine Chloride Urine Total Protein Vancomycin Trough Crossmatch 10/28/16 10/28/16 10/28/16 04:10 12:36 18:27 WBC RBC Hgb Hct MCV RDW Plt Count Lymph % (Auto) [place] % (Auto) [place] # Seg Neutrophils % Seg Neuts % (Manual) Lymphocytes % (Manual) Monocytes % (Manual) Basophils % (Manual) Nucleated RBC % Seg Neutrophils # Seg Neutrophils # Man Lymphocytes # (Manual) Monocytes # (Manual) Eosinophils # (Manual) Basophils # (Manual) PT INR APTT Heparin Anti-Xa Level 0.20 L POC ABG pH POC ABG pCO2 POC ABG pO2 Sodium Potassium Chloride Carbon Dioxide BUN Creatinine Glucose POC Glucose 205 H 339 H Calcium Phosphorus Magnesium AST Alkaline Phosphatase C-Reactive Protein Total Protein Albumin Lipase Vitamin B12 TSH Urine WBC (Auto) Urine Chloride Urine Total Protein Vancomycin Trough Crossmatch 10/29/16 10/29/16 10/29/16 01:05 06:19 09:30 WBC 20.3 H RBC 2.80 L Hgb 8.5 L Hct 26.7 L MCV RDW 15.4 H Plt Count 571 H Lymph % (Auto) [place] % (Auto) [place] # Seg Neutrophils % Seg Neuts % (Manual) 75.0 H Lymphocytes % (Manual) 4.0 L Monocytes % (Manual) Basophils % (Manual) Nucleated RBC % Seg Neutrophils # Seg Neutrophils # Man 15.2 H Lymphocytes # (Manual) 0.8 L Monocytes # (Manual) Eosinophils # (Manual) Basophils # (Manual) PT INR APTT Heparin Anti-Xa Level POC ABG pH POC ABG pCO2 POC ABG pO2 Sodium Potassium Chloride Carbon Dioxide BUN Creatinine Glucose POC Glucose 275 H 179 H Calcium Phosphorus Magnesium AST Alkaline Phosphatase C-Reactive Protein Total Protein Albumin Lipase Vitamin B12 TSH Urine WBC (Auto) Urine Chloride Urine Total Protein Vancomycin Trough Crossmatch 10/29/16 10/29/16 10/29/16 11:46 15:18 17:55 WBC RBC Hgb Hct MCV RDW Plt Count Lymph % (Auto) [place] % (Auto) [place] # Seg Neutrophils % Seg Neuts % (Manual) Lymphocytes % (Manual) Monocytes % (Manual) Basophils % (Manual) Nucleated RBC % Seg Neutrophils # Seg Neutrophils # Man Lymphocytes # (Manual) Monocytes # (Manual) Eosinophils # (Manual) Basophils # (Manual) PT INR APTT Heparin Anti-Xa Level 1.15 H POC ABG pH POC ABG pCO2 POC ABG pO2 Sodium Potassium Chloride Carbon Dioxide BUN Creatinine Glucose POC Glucose 122 H 255 H Calcium Phosphorus Magnesium AST Alkaline Phosphatase C-Reactive Protein Total Protein Albumin Lipase Vitamin B12 TSH Urine WBC (Auto) Urine Chloride Urine Total Protein Vancomycin Trough Crossmatch 10/30/16 10/30/16 10/30/16 00:10 05:30 05:30 WBC 19.8 H RBC 2.51 L Hgb 7.7 L Hct 24.1 L MCV RDW 15.5 H Plt Count 534 H Lymph % (Auto) [place] % (Auto) [place] # Seg Neutrophils % Seg Neuts % (Manual) Lymphocytes % (Manual) Monocytes % (Manual) Basophils % (Manual) Nucleated RBC % Seg Neutrophils # Seg Neutrophils # Man Lymphocytes # (Manual) Monocytes # (Manual) Eosinophils # (Manual) Basophils # (Manual) PT INR APTT Heparin Anti-Xa Level POC ABG pH POC ABG pCO2 POC ABG pO2 Sodium Potassium Chloride Carbon Dioxide BUN Creatinine Glucose 211 H POC Glucose 202 H Calcium 7.4 L Phosphorus Magnesium AST Alkaline Phosphatase C-Reactive Protein Total Protein Albumin Lipase Vitamin B12 TSH Urine WBC (Auto) Urine Chloride Urine Total Protein Vancomycin Trough Crossmatch 10/30/16 10/30/16 10/30/16 06:32 12:51 17:47 WBC RBC Hgb Hct MCV RDW Plt Count Lymph % (Auto) [place] % (Auto) [place] # Seg Neutrophils % Seg Neuts % (Manual) Lymphocytes % (Manual) Monocytes % (Manual) Basophils % (Manual) Nucleated RBC % Seg Neutrophils # Seg Neutrophils # Man Lymphocytes # (Manual) Monocytes # (Manual) Eosinophils # (Manual) Basophils # (Manual) PT INR APTT Heparin Anti-Xa Level POC ABG pH POC ABG pCO2 POC ABG pO2 Sodium Potassium Chloride Carbon Dioxide BUN Creatinine Glucose POC Glucose 207 H 218 H 169 H Calcium Phosphorus Magnesium AST Alkaline Phosphatase C-Reactive Protein Total Protein Albumin Lipase Vitamin B12 TSH Urine WBC (Auto) Urine Chloride Urine Total Protein Vancomycin Trough Crossmatch 10/30/16 10/31/16 10/31/16 23:59 05:25 11:21 WBC RBC Hgb Hct MCV RDW Plt Count Lymph % (Auto) [place] % (Auto) [place] # Seg Neutrophils % Seg Neuts % (Manual) Lymphocytes % (Manual) Monocytes % (Manual) Basophils % (Manual) Nucleated RBC % Seg Neutrophils # Seg Neutrophils # Man Lymphocytes # (Manual) Monocytes # (Manual) Eosinophils # (Manual) Basophils # (Manual) PT INR APTT Heparin Anti-Xa Level POC ABG pH POC ABG pCO2 POC ABG pO2 Sodium Potassium Chloride Carbon Dioxide BUN Creatinine Glucose POC Glucose 138 H 127 H 132 H Calcium Phosphorus Magnesium AST Alkaline Phosphatase C-Reactive Protein Total Protein Albumin Lipase Vitamin B12 TSH Urine WBC (Auto) Urine Chloride Urine Total Protein Vancomycin Trough Crossmatch 10/31/16 10/31/16 11/01/16 17:07 23:54 05:47 WBC RBC Hgb Hct MCV RDW Plt Count Lymph % (Auto) [place] % (Auto) [place] # Seg Neutrophils % Seg Neuts % (Manual) Lymphocytes % (Manual) Monocytes % (Manual) Basophils % (Manual) Nucleated RBC % Seg Neutrophils # Seg Neutrophils # Man Lymphocytes # (Manual) Monocytes # (Manual) Eosinophils # (Manual) Basophils # (Manual) PT INR APTT Heparin Anti-Xa Level POC ABG pH POC ABG pCO2 POC ABG pO2 Sodium Potassium Chloride Carbon Dioxide BUN Creatinine Glucose POC Glucose 138 H 153 H 150 H Calcium Phosphorus Magnesium AST Alkaline Phosphatase C-Reactive Protein Total Protein Albumin Lipase Vitamin B12 TSH Urine WBC (Auto) Urine Chloride Urine Total Protein Vancomycin Trough Crossmatch 11/01/16 11/01/16 11/01/16 06:33 06:33 12:16 WBC 19.2 H RBC 2.51 L Hgb 7.9 L Hct 24.8 L MCV 99 H D RDW 16.1 H Plt Count 569 H Lymph % (Auto) [place] % (Auto) [place] # Seg Neutrophils % Seg Neuts % (Manual) Lymphocytes % (Manual) Monocytes % (Manual) Basophils % (Manual) Nucleated RBC % Seg Neutrophils # Seg Neutrophils # Man Lymphocytes # (Manual) Monocytes # (Manual) Eosinophils # (Manual) Basophils # (Manual) PT INR APTT Heparin Anti-Xa Level POC ABG pH POC ABG pCO2 POC ABG pO2 Sodium Potassium 3.5 L Chloride Carbon Dioxide 21 L BUN Creatinine Glucose 137 H POC Glucose 125 H Calcium 7.7 L Phosphorus Magnesium AST Alkaline Phosphatase 148 H C-Reactive Protein Total Protein 6.2 L Albumin 2.0 L Lipase Vitamin B12 TSH Urine WBC (Auto) Urine Chloride Urine Total Protein Vancomycin Trough Crossmatch 11/01/16 11/02/16 11/02/16 17:37 00:05 04:15 WBC RBC Hgb Hct MCV RDW Plt Count Lymph % (Auto) [place] % (Auto) [place] # Seg Neutrophils % Seg Neuts % (Manual) Lymphocytes % (Manual) Monocytes % (Manual) Basophils % (Manual) Nucleated RBC % Seg Neutrophils # Seg Neutrophils # Man Lymphocytes # (Manual) Monocytes # (Manual) Eosinophils # (Manual) Basophils # (Manual) PT INR APTT Heparin Anti-Xa Level < 0.10 L POC ABG pH POC ABG pCO2 POC ABG pO2 Sodium Potassium 3.2 L Chloride Carbon Dioxide BUN 6 L Creatinine Glucose 135 H POC Glucose 164 H Calcium 7.5 L Phosphorus Magnesium AST Alkaline Phosphatase 132 H C-Reactive Protein Total Protein 6.2 L Albumin 1.8 L Lipase Vitamin B12 TSH Urine WBC (Auto) Urine Chloride Urine Total Protein Vancomycin Trough Crossmatch 11/02/16 11/02/16 11/02/16 04:15 05:54 12:15 WBC 17.7 H RBC 2.43 L Hgb 7.6 L Hct 23.5 L MCV RDW 15.9 H Plt Count 502 H Lymph % (Auto) [place] % (Auto) [place] # Seg Neutrophils % Seg Neuts % (Manual) 84.0 H Lymphocytes % (Manual) 11.0 L Monocytes % (Manual) Basophils % (Manual) Nucleated RBC % 1.0 H Seg Neutrophils # Seg Neutrophils # Man 14.9 H Lymphocytes # (Manual) Monocytes # (Manual) Eosinophils # (Manual) Basophils # (Manual) PT INR APTT Heparin Anti-Xa Level POC ABG pH POC ABG pCO2 POC ABG pO2 Sodium Potassium Chloride Carbon Dioxide BUN Creatinine Glucose POC Glucose 152 H 137 H Calcium Phosphorus Magnesium AST Alkaline Phosphatase C-Reactive Protein Total Protein Albumin Lipase Vitamin B12 TSH Urine WBC (Auto) Urine Chloride Urine Total Protein Vancomycin Trough Crossmatch 11/02/16 11/03/16 11/03/16 17:00 00:05 00:05 WBC RBC Hgb Hct MCV RDW Plt Count Lymph % (Auto) [place] % (Auto) [place] # Seg Neutrophils % Seg Neuts % (Manual) Lymphocytes % (Manual) Monocytes % (Manual) Basophils % (Manual) Nucleated RBC % Seg Neutrophils # Seg Neutrophils # Man Lymphocytes # (Manual) Monocytes # (Manual) Eosinophils # (Manual) Basophils # (Manual) PT INR APTT Heparin Anti-Xa Level POC ABG pH POC ABG pCO2 POC ABG pO2 Sodium Potassium Chloride Carbon Dioxide 20 L BUN 5 L Creatinine Glucose 139 H POC Glucose 161 H Calcium 6.7 L Phosphorus Magnesium 1.2 L AST Alkaline Phosphatase C-Reactive Protein Total Protein Albumin Lipase Vitamin B12 TSH Urine WBC (Auto) Urine Chloride Urine Total Protein Vancomycin Trough Crossmatch 11/03/16 11/03/16 11/03/16 00:05 02:05 04:23 WBC 15.9 H 14.0 H RBC 1.93 L 2.38 L Hgb 5.9 L* 7.3 L Hct 18.9 L* 23.1 L MCV 98 H RDW 15.9 H 15.9 H Plt Count Lymph % (Auto) [place] % (Auto) [place] # Seg Neutrophils % Seg Neuts % (Manual) 85.0 H Lymphocytes % (Manual) 4.0 L Monocytes % (Manual) Basophils % (Manual) Nucleated RBC % Seg Neutrophils # Seg Neutrophils # Man 13.5 H Lymphocytes # (Manual) 0.6 L Monocytes # (Manual) Eosinophils # (Manual) Basophils # (Manual) PT INR APTT Heparin Anti-Xa Level POC ABG pH POC ABG pCO2 POC ABG pO2 Sodium Potassium Chloride Carbon Dioxide BUN 5 L Creatinine Glucose 127 H POC Glucose Calcium 7.2 L Phosphorus Magnesium AST Alkaline Phosphatase C-Reactive Protein Total Protein 5.8 L Albumin 1.5 L Lipase Vitamin B12 TSH Urine WBC (Auto) Urine Chloride Urine Total Protein Vancomycin Trough Crossmatch 11/03/16 11/03/16 11/03/16 09:14 09:27 11:54 WBC RBC Hgb Hct MCV RDW Plt Count Lymph % (Auto) [place] % (Auto) [place] # Seg Neutrophils % Seg Neuts % (Manual) Lymphocytes % (Manual) Monocytes % (Manual) Basophils % (Manual) Nucleated RBC % Seg Neutrophils # Seg Neutrophils # Man Lymphocytes # (Manual) Monocytes # (Manual) Eosinophils # (Manual) Basophils # (Manual) PT INR APTT Heparin Anti-Xa Level 0.11 L POC ABG pH POC ABG pCO2 POC ABG pO2 Sodium Potassium Chloride Carbon Dioxide BUN 5 L Creatinine Glucose 111 H POC Glucose 139 H Calcium 6.7 L Phosphorus Magnesium AST Alkaline Phosphatase C-Reactive Protein Total Protein Albumin Lipase Vitamin B12 TSH Urine WBC (Auto) Urine Chloride Urine Total Protein Vancomycin Trough Crossmatch 11/03/16 11/03/16 11/03/16 16:26 18:01 18:01 WBC RBC Hgb Hct MCV RDW Plt Count Lymph % (Auto) [place] % (Auto) [place] # Seg Neutrophils % Seg Neuts % (Manual) Lymphocytes % (Manual) Monocytes % (Manual) Basophils % (Manual) Nucleated RBC % Seg Neutrophils # Seg Neutrophils # Man Lymphocytes # (Manual) Monocytes # (Manual) Eosinophils # (Manual) Basophils # (Manual) PT INR APTT Heparin Anti-Xa Level 2.00 H POC ABG pH POC ABG pCO2 POC ABG pO2 Sodium Potassium Chloride Carbon Dioxide BUN Creatinine Glucose POC Glucose 142 H Calcium Phosphorus Magnesium AST Alkaline Phosphatase C-Reactive Protein Total Protein Albumin Lipase Vitamin B12 TSH Urine WBC (Auto) Urine Chloride Urine Total Protein Vancomycin Trough Crossmatch See Detail 11/04/16 11/04/16 11/04/16 02:15 02:15 06:35 WBC 11.8 H RBC 2.39 L Hgb 7.4 L Hct 23.1 L MCV RDW 15.9 H Plt Count Lymph % (Auto) [place] % (Auto) [place] # Seg Neutrophils % Seg Neuts % (Manual) 76.0 H Lymphocytes % (Manual) 12.0 L Monocytes % (Manual) 9.0 H Basophils % (Manual) Nucleated RBC % Seg Neutrophils # Seg Neutrophils # Man 9.0 H Lymphocytes # (Manual) Monocytes # (Manual) 1.1 H Eosinophils # (Manual) Basophils # (Manual) PT INR APTT Heparin Anti-Xa Level < 0.10 L POC ABG pH POC ABG pCO2 POC ABG pO2 Sodium Potassium Chloride Carbon Dioxide 21 L BUN 5 L Creatinine Glucose 112 H POC Glucose Calcium 6.8 L Phosphorus Magnesium AST Alkaline Phosphatase C-Reactive Protein Total Protein 5.7 L Albumin 1.7 L Lipase Vitamin B12 TSH Urine WBC (Auto) Urine Chloride Urine Total Protein Vancomycin Trough Crossmatch 11/04/16 11/04/16 11/04/16 10:51 12:58 15:04 WBC RBC Hgb Hct MCV RDW Plt Count Lymph % (Auto) [place] % (Auto) [place] # Seg Neutrophils % Seg Neuts % (Manual) Lymphocytes % (Manual) Monocytes % (Manual) Basophils % (Manual) Nucleated RBC % Seg Neutrophils # Seg Neutrophils # Man Lymphocytes # (Manual) Monocytes # (Manual) Eosinophils # (Manual) Basophils # (Manual) PT INR APTT Heparin Anti-Xa Level 1.05 H POC ABG pH POC ABG pCO2 33.7 L POC ABG pO2 60 L Sodium Potassium Chloride Carbon Dioxide BUN Creatinine Glucose POC Glucose 118 H Calcium Phosphorus Magnesium AST Alkaline Phosphatase C-Reactive Protein Total Protein Albumin Lipase Vitamin B12 TSH Urine WBC (Auto) Urine Chloride Urine Total Protein Vancomycin Trough Crossmatch 11/04/16 11/04/16 11/05/16 17:20 20:31 02:30 WBC RBC Hgb Hct MCV RDW Plt Count Lymph % (Auto) [place] % (Auto) [place] # Seg Neutrophils % Seg Neuts % (Manual) Lymphocytes % (Manual) Monocytes % (Manual) Basophils % (Manual) Nucleated RBC % Seg Neutrophils # Seg Neutrophils # Man Lymphocytes # (Manual) Monocytes # (Manual) Eosinophils # (Manual) Basophils # (Manual) PT INR APTT Heparin Anti-Xa Level POC ABG pH POC ABG pCO2 POC ABG pO2 Sodium Potassium 3.5 L Chloride Carbon Dioxide 18 L BUN 5 L Creatinine 0.6 L Glucose 110 H POC Glucose 228 H 169 H Calcium 7.1 L Phosphorus Magnesium AST Alkaline Phosphatase C-Reactive Protein Total Protein Albumin 1.9 L Lipase Vitamin B12 TSH Urine WBC (Auto) Urine Chloride Urine Total Protein Vancomycin Trough Crossmatch 11/05/16 11/05/16 11/05/16 02:30 17:52 21:07 WBC 14.1 H RBC Hgb Hct MCV RDW 16.7 H Plt Count Lymph % (Auto) [place] % (Auto) [place] # Seg Neutrophils % Seg Neuts % (Manual) 80.0 H Lymphocytes % (Manual) 6.0 L Monocytes % (Manual) 8.0 H Basophils % (Manual) Nucleated RBC % Seg Neutrophils # Seg Neutrophils # Man 11.3 H Lymphocytes # (Manual) 0.8 L Monocytes # (Manual) 1.1 H Eosinophils # (Manual) Basophils # (Manual) PT INR APTT Heparin Anti-Xa Level < 0.10 L POC ABG pH POC ABG pCO2 POC ABG pO2 Sodium Potassium Chloride Carbon Dioxide BUN Creatinine Glucose POC Glucose 174 H Calcium Phosphorus Magnesium AST Alkaline Phosphatase C-Reactive Protein Total Protein Albumin Lipase Vitamin B12 TSH Urine WBC (Auto) Urine Chloride Urine Total Protein Vancomycin Trough Crossmatch 11/05/16 11/06/16 11/06/16 23:30 05:00 05:00 WBC 15.2 H RBC 3.29 L Hgb 10.0 L Hct MCV RDW 16.9 H Plt Count Lymph % (Auto) [place] % (Auto) [place] # Seg Neutrophils % Seg Neuts % (Manual) Lymphocytes % (Manual) Monocytes % (Manual) Basophils % (Manual) Nucleated RBC % Seg Neutrophils # Seg Neutrophils # Man Lymphocytes # (Manual) Monocytes # (Manual) Eosinophils # (Manual) Basophils # (Manual) PT INR APTT Heparin Anti-Xa Level 0.94 H POC ABG pH POC ABG pCO2 POC ABG pO2 Sodium Potassium Chloride Carbon Dioxide BUN Creatinine Glucose POC Glucose 131 H Calcium Phosphorus Magnesium AST Alkaline Phosphatase C-Reactive Protein Total Protein Albumin Lipase Vitamin B12 TSH Urine WBC (Auto) Urine Chloride Urine Total Protein Vancomycin Trough Crossmatch 11/06/16 11/06/16 11/06/16 05:00 11:45 18:23 WBC RBC Hgb Hct MCV RDW Plt Count Lymph % (Auto) [place] % (Auto) [place] # Seg Neutrophils % Seg Neuts % (Manual) Lymphocytes % (Manual) Monocytes % (Manual) Basophils % (Manual) Nucleated RBC % Seg Neutrophils # Seg Neutrophils # Man Lymphocytes # (Manual) Monocytes # (Manual) Eosinophils # (Manual) Basophils # (Manual) PT INR APTT Heparin Anti-Xa Level POC ABG pH POC ABG pCO2 POC ABG pO2 Sodium Potassium 3.5 L Chloride 107.1 H Carbon Dioxide 20 L BUN 4 L Creatinine 0.6 L Glucose 104 H POC Glucose 141 H 255 H Calcium 6.7 L Phosphorus Magnesium AST Alkaline Phosphatase C-Reactive Protein Total Protein Albumin Lipase Vitamin B12 TSH Urine WBC (Auto) Urine Chloride Urine Total Protein Vancomycin Trough Crossmatch 11/06/16 11/06/16 11/07/16 22:07 23:07 11:41 WBC RBC Hgb Hct MCV RDW Plt Count Lymph % (Auto) [place] % (Auto) [place] # Seg Neutrophils % Seg Neuts % (Manual) Lymphocytes % (Manual) Monocytes % (Manual) Basophils % (Manual) Nucleated RBC % Seg Neutrophils # Seg Neutrophils # Man Lymphocytes # (Manual) Monocytes # (Manual) Eosinophils # (Manual) Basophils # (Manual) PT INR APTT Heparin Anti-Xa Level 0.80 H POC ABG pH POC ABG pCO2 POC ABG pO2 Sodium Potassium Chloride Carbon Dioxide BUN Creatinine Glucose POC Glucose 183 H 132 H Calcium Phosphorus Magnesium AST Alkaline Phosphatase C-Reactive Protein Total Protein Albumin Lipase Vitamin B12 TSH Urine WBC (Auto) Urine Chloride Urine Total Protein Vancomycin Trough Crossmatch 11/07/16 11/07/16 11/07/16 12:17 17:05 17:58 WBC RBC Hgb Hct MCV RDW Plt Count Lymph % (Auto) [place] % (Auto) [place] # Seg Neutrophils % Seg Neuts % (Manual) Lymphocytes % (Manual) Monocytes % (Manual) Basophils % (Manual) Nucleated RBC % Seg Neutrophils # Seg Neutrophils # Man Lymphocytes # (Manual) Monocytes # (Manual) Eosinophils # (Manual) Basophils # (Manual) PT INR APTT Heparin Anti-Xa Level 0.87 H POC ABG pH 7.324 L POC ABG pCO2 POC ABG pO2 Sodium Potassium Chloride Carbon Dioxide BUN Creatinine Glucose POC Glucose 158 H Calcium Phosphorus Magnesium AST Alkaline Phosphatase C-Reactive Protein Total Protein Albumin Lipase Vitamin B12 TSH Urine WBC (Auto) Urine Chloride Urine Total Protein Vancomycin Trough Crossmatch 11/07/16 11/07/16 11/07/16 23:26 Unknown Unknown WBC 12.3 H RBC 2.96 L Hgb 9.1 L Hct 27.9 L MCV RDW 16.8 H Plt Count Lymph % (Auto) [place] % (Auto) [place] # Seg Neutrophils % Seg Neuts % (Manual) 80.0 H Lymphocytes % (Manual) 7.0 L Monocytes % (Manual) Basophils % (Manual) Nucleated RBC % Seg Neutrophils # Seg Neutrophils # Man 9.8 H Lymphocytes # (Manual) 0.9 L Monocytes # (Manual) Eosinophils # (Manual) Basophils # (Manual) PT INR APTT Heparin Anti-Xa Level POC ABG pH POC ABG pCO2 POC ABG pO2 Sodium Potassium Chloride Carbon Dioxide 19 L BUN Creatinine Glucose 106 H POC Glucose 130 H Calcium 6.9 L Phosphorus Magnesium AST Alkaline Phosphatase C-Reactive Protein Total Protein Albumin Lipase Vitamin B12 TSH Urine WBC (Auto) Urine Chloride Urine Total Protein Vancomycin Trough Crossmatch 11/07/16 11/08/16 11/08/16 Unknown 05:14 05:20 WBC 12.4 H RBC 3.04 L Hgb 9.2 L Hct 28.8 L MCV RDW 16.6 H Plt Count Lymph % (Auto) [place] % (Auto) [place] # Seg Neutrophils % Seg Neuts % (Manual) 77.0 H Lymphocytes % (Manual) 5.0 L Monocytes % (Manual) Basophils % (Manual) 2.0 H Nucleated RBC % Seg Neutrophils # Seg Neutrophils # Man 9.5 H Lymphocytes # (Manual) 0.6 L Monocytes # (Manual) Eosinophils # (Manual) Basophils # (Manual) 0.2 H PT INR APTT Heparin Anti-Xa Level 0.90 H POC ABG pH POC ABG pCO2 POC ABG pO2 Sodium Potassium Chloride Carbon Dioxide BUN Creatinine Glucose POC Glucose 204 H Calcium Phosphorus Magnesium AST Alkaline Phosphatase C-Reactive Protein Total Protein Albumin Lipase Vitamin B12 TSH Urine WBC (Auto) Urine Chloride Urine Total Protein Vancomycin Trough Crossmatch 11/08/16 11/08/16 11/08/16 05:20 12:10 13:10 WBC RBC Hgb Hct MCV RDW Plt Count Lymph % (Auto) [place] % (Auto) [place] # Seg Neutrophils % Seg Neuts % (Manual) Lymphocytes % (Manual) Monocytes % (Manual) Basophils % (Manual) Nucleated RBC % Seg Neutrophils # Seg Neutrophils # Man Lymphocytes # (Manual) Monocytes # (Manual) Eosinophils # (Manual) Basophils # (Manual) PT INR APTT Heparin Anti-Xa Level POC ABG pH POC ABG pCO2 33.7 L POC ABG pO2 Sodium 136 L Potassium Chloride Carbon Dioxide 19 L BUN Creatinine Glucose 192 H POC Glucose 180 H Calcium 7.1 L Phosphorus Magnesium AST Alkaline Phosphatase C-Reactive Protein Total Protein Albumin Lipase Vitamin B12 TSH Urine WBC (Auto) Urine Chloride Urine Total Protein Vancomycin Trough Crossmatch 11/08/16 11/08/16 11/08/16 17:26 20:45 23:34 WBC RBC Hgb Hct MCV RDW Plt Count Lymph % (Auto) [place] % (Auto) [place] # Seg Neutrophils % Seg Neuts % (Manual) Lymphocytes % (Manual) Monocytes % (Manual) Basophils % (Manual) Nucleated RBC % Seg Neutrophils # Seg Neutrophils # Man Lymphocytes # (Manual) Monocytes # (Manual) Eosinophils # (Manual) Basophils # (Manual) PT INR APTT Heparin Anti-Xa Level POC ABG pH POC ABG pCO2 POC ABG pO2 Sodium Potassium Chloride Carbon Dioxide BUN Creatinine Glucose POC Glucose 187 H 178 H Calcium Phosphorus Magnesium AST Alkaline Phosphatase C-Reactive Protein Total Protein Albumin Lipase Vitamin B12 TSH Urine WBC (Auto) Urine Chloride Urine Total Protein Vancomycin Trough 35.4 H Crossmatch 11/09/16 11/09/16 11/09/16 05:30 05:30 05:59 WBC 11.5 H RBC 2.96 L Hgb 9.2 L Hct 28.2 L MCV RDW 16.4 H Plt Count Lymph % (Auto) [place] % (Auto) [place] # Seg Neutrophils % Seg Neuts % (Manual) 76.0 H Lymphocytes % (Manual) 2.0 L Monocytes % (Manual) Basophils % (Manual) Nucleated RBC % Seg Neutrophils # Seg Neutrophils # Man 8.7 H Lymphocytes # (Manual) 0.2 L Monocytes # (Manual) Eosinophils # (Manual) Basophils # (Manual) PT INR APTT Heparin Anti-Xa Level POC ABG pH POC ABG pCO2 POC ABG pO2 Sodium Potassium 3.4 L Chloride 107.6 H Carbon Dioxide 19 L BUN Creatinine 0.6 L Glucose 207 H POC Glucose 263 H Calcium 7.3 L Phosphorus Magnesium AST Alkaline Phosphatase C-Reactive Protein Total Protein Albumin Lipase Vitamin B12 TSH Urine WBC (Auto) Urine Chloride Urine Total Protein Vancomycin Trough Crossmatch 11/09/16 11/09/16 11/09/16 11:49 15:24 18:04 WBC RBC Hgb Hct MCV RDW Plt Count Lymph % (Auto) [place] % (Auto) [place] # Seg Neutrophils % Seg Neuts % (Manual) Lymphocytes % (Manual) Monocytes % (Manual) Basophils % (Manual) Nucleated RBC % Seg Neutrophils # Seg Neutrophils # Man Lymphocytes # (Manual) Monocytes # (Manual) Eosinophils # (Manual) Basophils # (Manual) PT INR APTT Heparin Anti-Xa Level POC ABG pH POC ABG pCO2 33.8 L POC ABG pO2 131 H Sodium Potassium Chloride Carbon Dioxide BUN Creatinine Glucose POC Glucose 269 H 242 H Calcium Phosphorus Magnesium AST Alkaline Phosphatase C-Reactive Protein Total Protein Albumin Lipase Vitamin B12 TSH Urine WBC (Auto) Urine Chloride Urine Total Protein Vancomycin Trough Crossmatch 11/09/16 11/10/16 11/10/16 22:57 04:30 04:30 WBC 15.7 H RBC 3.17 L Hgb 9.7 L Hct 30.2 L MCV RDW 16.2 H Plt Count Lymph % (Auto) [place] % (Auto) [place] # Seg Neutrophils % Seg Neuts % (Manual) Lymphocytes % (Manual) Monocytes % (Manual) Basophils % (Manual) Nucleated RBC % Seg Neutrophils # Seg Neutrophils # Man 8.5 H Lymphocytes # (Manual) Monocytes # (Manual) Eosinophils # (Manual) 0.5 H Basophils # (Manual) PT INR APTT Heparin Anti-Xa Level POC ABG pH POC ABG pCO2 POC ABG pO2 Sodium Potassium Chloride Carbon Dioxide 19 L BUN Creatinine 0.6 L Glucose 199 H POC Glucose 239 H Calcium 7.8 L Phosphorus Magnesium AST Alkaline Phosphatase C-Reactive Protein Total Protein Albumin Lipase Vitamin B12 TSH Urine WBC (Auto) Urine Chloride Urine Total Protein Vancomycin Trough Crossmatch 11/10/16 11/10/16 11/10/16 04:30 11:32 16:00 WBC RBC Hgb Hct MCV RDW Plt Count Lymph % (Auto) [place] % (Auto) [place] # Seg Neutrophils % Seg Neuts % (Manual) Lymphocytes % (Manual) Monocytes % (Manual) Basophils % (Manual) Nucleated RBC % Seg Neutrophils # Seg Neutrophils # Man Lymphocytes # (Manual) Monocytes # (Manual) Eosinophils # (Manual) Basophils # (Manual) PT INR APTT Heparin Anti-Xa Level 1.09 H < 0.10 L POC ABG pH POC ABG pCO2 POC ABG pO2 Sodium Potassium Chloride Carbon Dioxide BUN Creatinine Glucose POC Glucose 211 H Calcium Phosphorus Magnesium AST Alkaline Phosphatase C-Reactive Protein Total Protein Albumin Lipase Vitamin B12 TSH Urine WBC (Auto) Urine Chloride Urine Total Protein Vancomycin Trough Crossmatch 11/10/16 11/10/16 11/10/16 17:39 18:00 23:06 WBC RBC Hgb Hct MCV RDW Plt Count Lymph % (Auto) [place] % (Auto) [place] # Seg Neutrophils % Seg Neuts % (Manual) Lymphocytes % (Manual) Monocytes % (Manual) Basophils % (Manual) Nucleated RBC % Seg Neutrophils # Seg Neutrophils # Man Lymphocytes # (Manual) Monocytes # (Manual) Eosinophils # (Manual) Basophils # (Manual) PT INR APTT Heparin Anti-Xa Level 0.85 H POC ABG pH POC ABG pCO2 POC ABG pO2 Sodium Potassium Chloride Carbon Dioxide BUN Creatinine Glucose POC Glucose 249 H 220 H Calcium Phosphorus Magnesium AST Alkaline Phosphatase C-Reactive Protein Total Protein Albumin Lipase Vitamin B12 TSH Urine WBC (Auto) Urine Chloride Urine Total Protein Vancomycin Trough Crossmatch 11/11/16 11/11/16 11/11/16 05:56 06:15 06:15 WBC 13.3 H RBC 2.87 L Hgb 8.7 L Hct 27.2 L MCV RDW 16.4 H Plt Count Lymph % (Auto) [place] % (Auto) [place] # 0.9 H Seg Neutrophils % 78.9 H Seg Neuts % (Manual) Lymphocytes % (Manual) Monocytes % (Manual) Basophils % (Manual) Nucleated RBC % Seg Neutrophils # 10.5 H Seg Neutrophils # Man Lymphocytes # (Manual) Monocytes # (Manual) Eosinophils # (Manual) Basophils # (Manual) PT INR APTT Heparin Anti-Xa Level POC ABG pH POC ABG pCO2 POC ABG pO2 Sodium Potassium 3.2 L Chloride Carbon Dioxide 19 L BUN Creatinine Glucose POC Glucose 117 H Calcium 7.6 L Phosphorus Magnesium AST Alkaline Phosphatase C-Reactive Protein Total Protein Albumin Lipase Vitamin B12 TSH Urine WBC (Auto) Urine Chloride Urine Total Protein Vancomycin Trough Crossmatch 11/11/16 11/11/16 11/11/16 12:26 16:58 17:33 WBC RBC Hgb Hct MCV RDW Plt Count Lymph % (Auto) [place] % (Auto) [place] # Seg Neutrophils % Seg Neuts % (Manual) Lymphocytes % (Manual) Monocytes % (Manual) Basophils % (Manual) Nucleated RBC % Seg Neutrophils # Seg Neutrophils # Man Lymphocytes # (Manual) Monocytes # (Manual) Eosinophils # (Manual) Basophils # (Manual) PT INR APTT Heparin Anti-Xa Level < 0.10 L POC ABG pH POC ABG pCO2 POC ABG pO2 Sodium Potassium Chloride Carbon Dioxide BUN Creatinine Glucose POC Glucose 114 H 161 H Calcium Phosphorus Magnesium AST Alkaline Phosphatase C-Reactive Protein Total Protein Albumin Lipase Vitamin B12 TSH Urine WBC (Auto) Urine Chloride Urine Total Protein Vancomycin Trough Crossmatch 11/12/16 11/12/16 11/12/16 05:00 05:00 05:00 WBC 12.8 H RBC 2.75 L Hgb 8.4 L Hct 25.7 L MCV RDW 16.3 H Plt Count Lymph % (Auto) [place] % (Auto) 7.5 H [place] # 1.0 H Seg Neutrophils % 78.0 H Seg Neuts % (Manual) Lymphocytes % (Manual) Monocytes % (Manual) Basophils % (Manual) Nucleated RBC % Seg Neutrophils # 10.0 H Seg Neutrophils # Man Lymphocytes # (Manual) Monocytes # (Manual) Eosinophils # (Manual) Basophils # (Manual) PT INR APTT Heparin Anti-Xa Level 0.87 H POC ABG pH POC ABG pCO2 POC ABG pO2 Sodium Potassium 3.4 L Chloride Carbon Dioxide 19 L BUN Creatinine Glucose 112 H POC Glucose Calcium 7.7 L Phosphorus Magnesium AST Alkaline Phosphatase C-Reactive Protein Total Protein Albumin Lipase Vitamin B12 TSH Urine WBC (Auto) Urine Chloride Urine Total Protein Vancomycin Trough Crossmatch 11/12/16 11/12/16 11/13/16 11:18 16:40 00:44 WBC RBC Hgb Hct MCV RDW Plt Count Lymph % (Auto) [place] % (Auto) [place] # Seg Neutrophils % Seg Neuts % (Manual) Lymphocytes % (Manual) Monocytes % (Manual) Basophils % (Manual) Nucleated RBC % Seg Neutrophils # Seg Neutrophils # Man Lymphocytes # (Manual) Monocytes # (Manual) Eosinophils # (Manual) Basophils # (Manual) PT INR APTT Heparin Anti-Xa Level POC ABG pH POC ABG pCO2 POC ABG pO2 Sodium Potassium Chloride Carbon Dioxide BUN Creatinine Glucose POC Glucose 135 H 139 H 169 H Calcium Phosphorus Magnesium AST Alkaline Phosphatase C-Reactive Protein Total Protein Albumin Lipase Vitamin B12 TSH Urine WBC (Auto) Urine Chloride Urine Total Protein Vancomycin Trough Crossmatch 11/13/16 11/13/16 11/13/16 05:28 05:28 06:02 WBC 12.7 H RBC 2.93 L Hgb 9.0 L Hct 27.6 L MCV RDW 16.1 H Plt Count Lymph % (Auto) [place] % (Auto) [place] # Seg Neutrophils % 78.6 H Seg Neuts % (Manual) Lymphocytes % (Manual) Monocytes % (Manual) Basophils % (Manual) Nucleated RBC % Seg Neutrophils # 10.0 H Seg Neutrophils # Man Lymphocytes # (Manual) Monocytes # (Manual) Eosinophils # (Manual) Basophils # (Manual) PT INR APTT Heparin Anti-Xa Level POC ABG pH POC ABG pCO2 POC ABG pO2 Sodium Potassium Chloride Carbon Dioxide 17 L BUN Creatinine Glucose 116 H POC Glucose 112 H Calcium 7.8 L Phosphorus Magnesium AST Alkaline Phosphatase C-Reactive Protein Total Protein Albumin Lipase Vitamin B12 TSH Urine WBC (Auto) Urine Chloride Urine Total Protein Vancomycin Trough Crossmatch 11/13/16 11/13/16 11/13/16 12:34 16:55 17:00 WBC RBC Hgb Hct MCV RDW Plt Count Lymph % (Auto) [place] % (Auto) [place] # Seg Neutrophils % Seg Neuts % (Manual) Lymphocytes % (Manual) Monocytes % (Manual) Basophils % (Manual) Nucleated RBC % Seg Neutrophils # Seg Neutrophils # Man Lymphocytes # (Manual) Monocytes # (Manual) Eosinophils # (Manual) Basophils # (Manual) PT INR APTT Heparin Anti-Xa Level POC ABG pH POC ABG pCO2 22.9 L POC ABG pO2 53 L Sodium Potassium Chloride Carbon Dioxide BUN Creatinine Glucose POC Glucose 109 H 122 H Calcium Phosphorus Magnesium AST Alkaline Phosphatase C-Reactive Protein Total Protein Albumin Lipase Vitamin B12 TSH Urine WBC (Auto) Urine Chloride Urine Total Protein Vancomycin Trough Crossmatch 11/13/16 11/14/16 11/14/16 23:33 04:42 04:42 WBC 11.7 H RBC 3.01 L Hgb 9.3 L Hct 28.9 L MCV RDW 16.5 H Plt Count Lymph % (Auto) [place] % (Auto) [place] # Seg Neutrophils % Seg Neuts % (Manual) 79.0 H Lymphocytes % (Manual) 10.0 L Monocytes % (Manual) Basophils % (Manual) Nucleated RBC % Seg Neutrophils # Seg Neutrophils # Man 9.2 H Lymphocytes # (Manual) Monocytes # (Manual) Eosinophils # (Manual) Basophils # (Manual) PT INR APTT Heparin Anti-Xa Level POC ABG pH POC ABG pCO2 POC ABG pO2 Sodium Potassium Chloride Carbon Dioxide 16 L BUN Creatinine Glucose 102 H POC Glucose 173 H Calcium 7.5 L Phosphorus Magnesium AST Alkaline Phosphatase C-Reactive Protein Total Protein Albumin Lipase Vitamin B12 TSH Urine WBC (Auto) Urine Chloride Urine Total Protein Vancomycin Trough Crossmatch 11/14/16 11/14/16 11/14/16 11:43 16:57 19:45 WBC RBC Hgb Hct MCV RDW Plt Count Lymph % (Auto) [place] % (Auto) [place] # Seg Neutrophils % Seg Neuts % (Manual) Lymphocytes % (Manual) Monocytes % (Manual) Basophils % (Manual) Nucleated RBC % Seg Neutrophils # Seg Neutrophils # Man Lymphocytes # (Manual) Monocytes # (Manual) Eosinophils # (Manual) Basophils # (Manual) PT INR APTT Heparin Anti-Xa Level 0.71 H POC ABG pH POC ABG pCO2 POC ABG pO2 Sodium Potassium Chloride Carbon Dioxide BUN Creatinine Glucose POC Glucose 130 H 209 H Calcium Phosphorus Magnesium AST Alkaline Phosphatase C-Reactive Protein Total Protein Albumin Lipase Vitamin B12 TSH Urine WBC (Auto) Urine Chloride Urine Total Protein Vancomycin Trough Crossmatch 11/14/16 23:43 WBC RBC Hgb Hct MCV RDW Plt Count Lymph % (Auto) [place] % (Auto) [place] # Seg Neutrophils % Seg Neuts % (Manual) Lymphocytes % (Manual) Monocytes % (Manual) Basophils % (Manual) Nucleated RBC % Seg Neutrophils # Seg Neutrophils # Man Lymphocytes # (Manual) Monocytes # (Manual) Eosinophils # (Manual) Basophils # (Manual) PT INR APTT Heparin Anti-Xa Level POC ABG pH POC ABG pCO2 POC ABG pO2 Sodium Potassium Chloride Carbon Dioxide BUN Creatinine Glucose POC Glucose 167 H Calcium Phosphorus Magnesium AST Alkaline Phosphatase C-Reactive Protein Total Protein Albumin Lipase Vitamin B12 TSH Urine WBC (Auto) Urine Chloride Urine Total Protein Vancomycin Trough Crossmatch Allied health notes reviewed: RT
--- NOTE | 2016-11-15 11:35 | Gastroenterology Progress Note ---
Assessment and Plan 1. Vomiting GOO vs ileus vs other -? abdominal pain -active bowel sounds -CT benign ( no contrast) - KUB today shows no acute process, gaseous distention of stomach resolved -nursing reports one episode over night with large volume vomiting of clear emesis -NG tube with 200ml output over 24hrs -Ideally would like to have CT with oral contrast or SBFT, however concern for aspiration in this patient. May need to consider EGD to assess for GOO. -Keep NPO for now -Further recommendations to follow. Subjective Date of service: 11/15/16 Principal diagnosis: respiratory failure on mechanical ventilatory support, DKA Interval history: Pt awake, vent support, with no acute distress. Objective - Constitutional Vitals: Temp Pulse Resp BP Pulse Ox 99.1 F 102 H 30 H 147/75 100 11/15/16 07:53 11/15/16 10:30 11/15/16 10:30 11/15/16 10:30 11/15/16 10:30 General appearance: no acute distress - EENT Eyes: EOM intact ENT: hearing intact - Cardiovascular Rhythm: regular (tachycardia) Heart Sounds: Present: S1 & S2 - Gastrointestinal General gastrointestinal: Present: soft, non-tender, normal bowel sounds - Labs CBC & Chem 7: 11/14/16 04:42 11/14/16 04:42 Labs: Laboratory Results - last 24 hr 11/14/16 11/14/16 11/14/16 11:43 16:57 19:39 Heparin Anti-Xa Level POC Glucose 130 H 209 H Urine Color Yellow Urine Turbidity Cloudy Urine pH 6.0 Ur Specific [place] 1.010 Urine Protein 30 mg/dl Urine Glucose (UA) 50 Urine Ketones 20 Urine Blood Lg Urine Nitrite Neg Urine Bilirubin Neg Urine Urobilinogen < 2.0 Ur Leukocyte Esterase Sm Urine WBC (Auto) 3.0 Urine RBC (Auto) > 182.0 Urine Bacteria (Auto) 1+ Urine Mucus Few 11/14/16 11/14/16 11/15/16 19:45 23:43 03:00 Heparin Anti-Xa Level 0.71 H 0.37 POC Glucose 167 H Urine Color Urine Turbidity Urine pH Ur Specific [place] Urine Protein Urine Glucose (UA) Urine Ketones Urine Blood Urine Nitrite Urine Bilirubin Urine Urobilinogen Ur Leukocyte Esterase Urine WBC (Auto) Urine RBC (Auto) Urine Bacteria (Auto) Urine Mucus 11/15/16 05:40 Heparin Anti-Xa Level POC Glucose 103 Urine Color Urine Turbidity Urine pH Ur Specific [place] Urine Protein Urine Glucose (UA) Urine Ketones Urine Blood Urine Nitrite Urine Bilirubin Urine Urobilinogen Ur Leukocyte Esterase Urine WBC (Auto) Urine RBC (Auto) Urine Bacteria (Auto) Urine Mucus
[2016-11-15] MEDS: HEPARIN/ 0.45% NACL-25,000 UNIT/500 ML 25,000 UNITS/500 ML BAG IV SCH (12:09)
--- NOTE | 2016-11-15 16:51 | Event Note ---
Date: 11/15/16 Pt awake on mechanical ventilation. Pt's bedside HR 155. Discussed with nursing staff, who has discussed with cardiology. Pt's Bandages removed. Sloughing skin along incision, but skin looks viable. However, the lateral portion appears necrotic. No erythema or drainage. It is unclear if her stump is salvageable (discussed with family) and may require conversion to AKA if it deteriorates. Continue LWC, offloading pressure , and observe for now (as wounds do not appear infected, and do not require urgent intervention). Continue supporitive care and medical optimization.
--- NOTE | 2016-11-15 17:51 | Progress Note ---
Assessment and Plan Assessment and plan: 66-year-old woman who presented with lethargy and altered mental status she deteriorated and was intubated and in emergency room, she was managed for DKA and she also developed sepsis due to UTI and right lower extremity ischemia 1. Acute respiratory failure with hypercapnia remains on ventilatory support status post trach and PEG 2. Diabetes=-on admission had DKA this has resolved. Continue SubQ insulin 3. Gastroenteritis question diabetic gastroparesis. GI consulted. We'll monitor 4. 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 Consider possible conversion to AKA. 5. Sepsis- Leukocytosis -ID following multifactorial. UTI. Continue to monitor 6. Toxic metabolic encephalopathy- improved. 7. Abdominal pain-does appear to have gastric distention no evidence of obstruction and NG tube in place GI consulted. Monitor closely. Associated. 8. LUCY- present on admissions. likely vasomotor . resolved 9. Tachycardia- continue BB, cardizem, 9. Anemia- 11. Metabolic acidosis-monitor closely may need to add bicarbonate if needed Critical care time 35 MINUTES Plan Discussed with family and senior production planner History Interval history: Patient seen and examined, still with vomiting progressed since the NG tube multiple to not much this morning. Hospitalist Physical - Physical exam Narrative exam: VITAL SIGNS: Reviewed. GENERAL: The patient appeared well nourished and normally developed. Vital signs as documented. HEAD: No signs of head trauma. EYES: Pupils are equal. Extraocular motions intact. EARS: Hearing grossly intact. MOUTH: missing dentition NECK: ETT. CHEST: Chest with diminshed CARDIAC: Regular rate and rhythm. S1 and S2, without murmurs, gallops, or rubs. VASCULAR: trace Edema. Peripheral pulses left lower ext ABDOMEN: Soft, distended, tender. No rebound or guarding, and no masses palpated. Bowel Sounds normal. MUSCULOSKELETAL: BKA right lower extremity dressing in place. Some necrosis to the lateral aspect. NEUROLOGIC EXAM: follows command. PSYCHIATRIC: mood appears normal. SKIN: dressing to right lower ext stump - Constitutional Vitals: Temp Pulse Resp BP Pulse Ox 99.1 F 110 H 22 151/81 100 11/15/16 16:00 11/15/16 17:21 11/15/16 16:30 11/15/16 17:21 11/15/16 17:17 General appearance: Present: no acute distress Results - Labs CBC & Chem 7: 11/14/16 04:42 11/14/16 04:42 Labs: Laboratory Last Values WBC 11.7 K/mm3 (4.5-11.0) H 11/14/16 04:42 RBC 3.01 M/mm3 (3.65-5.03) L 11/14/16 04:42 Hgb 9.3 gm/dl (10.1-14.3) L 11/14/16 04:42 Hct 28.9 % (30.3-42.9) L 11/14/16 04:42 MCV 96 fl (79-97) 11/14/16 04:42 MCH 31 pg (28-32) 11/14/16 04:42 MCHC 32 % (30-34) 11/14/16 04:42 RDW 16.5 % (13.2-15.2) H 11/14/16 04:42 Plt Count 387 K/mm3 (140-440) 11/14/16 04:42 Lymph % (Auto) 13.8 % (13.4-35.0) 11/13/16 05:28 Grant % (Auto) 6.4 % (0.0-7.3) 11/13/16 05:28 Eos % (Auto) 0.9 % (0.0-4.3) 11/13/16 05:28 Baso % (Auto) 0.3 % (0.0-1.8) 11/13/16 05:28 Lymph # 1.8 K/mm3 (1.2-5.4) 11/13/16 05:28 Grant # 0.8 K/mm3 (0.0-0.8) 11/13/16 05:28 Eos # 0.1 K/mm3 (0.0-0.4) 11/13/16 05:28 Baso # 0.0 K/mm3 (0.0-0.1) 11/13/16 05:28 Add Manual Diff Complete 11/14/16 04:42 Total Counted 100 11/14/16 04:42 Seg Neutrophils % 78.6 % (40.0-70.0) H 11/13/16 05:28 Seg Neuts % (Manual) 79.0 % (40.0-70.0) H 11/14/16 04:42 Band Neutrophils % 6.0 % 11/14/16 04:42 Lymphocytes % (Manual) 10.0 % (13.4-35.0) L 11/14/16 04:42 Reactive Lymphs % (Man) 0 % 11/14/16 04:42 Monocytes % (Manual) 5.0 % (0.0-7.3) 11/14/16 04:42 Eosinophils % (Manual) 0 % (0.0-4.3) 11/14/16 04:42 Basophils % (Manual) 0 % (0.0-1.8) 11/14/16 04:42 Metamyelocytes % 0 % 11/14/16 04:42 Myelocytes % 0 % 11/14/16 04:42 Promyelocytes % 0 % 11/14/16 04:42 Blast Cells % 0 % 11/14/16 04:42 Nucleated RBC % Not Reportable 11/14/16 04:42 Seg Neutrophils # 10.0 K/mm3 (1.8-7.7) H 11/13/16 05:28 Seg Neutrophils # Man 9.2 K/mm3 (1.8-7.7) H 11/14/16 04:42 Band Neutrophils # 0.7 K/mm3 11/14/16 04:42 Lymphocytes # (Manual) 1.2 K/mm3 (1.2-5.4) 11/14/16 04:42 Abs React Lymphs (Man) 0.0 K/mm3 11/14/16 04:42 Monocytes # (Manual) 0.6 K/mm3 (0.0-0.8) 11/14/16 04:42 Eosinophils # (Manual) 0.0 K/mm3 (0.0-0.4) 11/14/16 04:42 Basophils # (Manual) 0.0 K/mm3 (0.0-0.1) 11/14/16 04:42 Metamyelocytes # 0.0 K/mm3 11/14/16 04:42 Myelocytes # 0.0 K/mm3 11/14/16 04:42 Promyelocytes # 0.0 K/mm3 11/14/16 04:42 Blast Cells # 0.0 K/mm3 11/14/16 04:42 Pathologist Review 10/29/16 09:30 WBC Morphology Not Reportable 11/14/16 04:42 Hypersegmented Neuts Not Reportable 11/14/16 04:42 Hyposegmented Neuts Not Reportable 11/14/16 04:42 Hypogranular Neuts Not Reportable 11/14/16 04:42 Hypersegmented Polys TNR 10/17/16 07:08 Smudge Cells Not Reportable 11/14/16 04:42 Toxic Granulation Not Reportable 11/14/16 04:42 Toxic Vacuolation Not Reportable 11/14/16 04:42 Dohle Bodies Not Reportable 11/14/16 04:42 Pelger-Huet Anomaly Not Reportable 11/14/16 04:42 [place] Rods Not Reportable 11/14/16 04:42 Platelet Estimate Consistent w auto 11/14/16 04:42 Clumped Platelets Not Reportable 11/14/16 04:42 Plt Clumps, EDTA Not Reportable 11/14/16 04:42 Large Platelets Not Reportable 11/14/16 04:42 Giant Platelets Not Reportable 11/14/16 04:42 Platelet Satelliting Not Reportable 11/14/16 04:42 Plt Morphology Comment Not Reportable 11/14/16 04:42 RBC Morphology Not Reportable 11/14/16 04:42 Dimorphic RBCs Not Reportable 11/14/16 04:42 Polychromasia Not Reportable 11/14/16 04:42 Hypochromasia Not Reportable 11/14/16 04:42 Poikilocytosis Not Reportable 11/14/16 04:42 Basophilic Stippling TNR 10/17/16 07:08 Anisocytosis 1+ 11/14/16 04:42 Microcytosis Not Reportable 11/14/16 04:42 Macrocytosis Not Reportable 11/14/16 04:42 Spherocytes Not Reportable 11/14/16 04:42 Pappenheimer Bodies Not Reportable 11/14/16 04:42 Sickle Cells Not Reportable 11/14/16 04:42 Target Cells Not Reportable 11/14/16 04:42 Tear Drop Cells Not Reportable 11/14/16 04:42 Ovalocytes Not Reportable 11/14/16 04:42 Stomatocytes Few 11/03/16 00:05 Helmet Cells Not Reportable 11/14/16 04:42 [place] Bodies Not Reportable 11/14/16 04:42 [place] Rings Not Reportable 11/14/16 04:42 Jeannette Cells Not Reportable 11/14/16 04:42 Bite Cells Not Reportable 11/14/16 04:42 Crenated Cell Not Reportable 11/14/16 04:42 Elliptocytes Not Reportable 11/14/16 04:42 Acanthocytes (Spur) Not Reportable 11/14/16 04:42 Rouleaux Not Reportable 11/14/16 04:42 Hemoglobin C Crystals Not Reportable 11/14/16 04:42 Schistocytes Not Reportable 11/14/16 04:42 Malaria parasites Not Reportable 11/14/16 04:42 David Bodies Not Reportable 11/14/16 04:42 Hem Pathologist Commnt No 11/14/16 04:42 PT 16.4 Sec. (12.2-14.9) H 10/17/16 16:07 INR 1.33 (0.87-1.13) H 10/17/16 16:07 APTT 38.8 Sec. (24.2-36.6) H 10/17/16 16:07 Heparin Anti-Xa Level 0.37 U.I./ml (0.3-0.7) 11/15/16 03:00 POC ABG pH 7.449 (7.35-7.45) 11/13/16 17:00 POC ABG pCO2 22.9 (35-45) L 11/13/16 17:00 POC ABG pO2 53 (80-105) L 11/13/16 17:00 POC ABG HCO3 15.9 11/13/16 17:00 POC ABG Total CO2 17 11/13/16 17:00 POC ABG O2 Sat 89 11/13/16 17:00 POC ABG Base Excess -8 11/13/16 17:00 VBG pH 7.020 (7.320-7.420) L* 10/13/16 04:22 FiO2 25 % 11/13/16 17:00 Sodium 139 mmol/L (137-145) 11/14/16 04:42 Potassium 3.9 mmol/L (3.6-5.0) 11/14/16 04:42 Chloride 103.3 mmol/L (98-107) 11/14/16 04:42 Carbon Dioxide 16 mmol/L (22-30) L 11/14/16 04:42 Anion Gap 24 mmol/L 11/14/16 04:42 BUN 7 mg/dL (7-17) 11/14/16 04:42 Creatinine 0.7 mg/dL (0.7-1.2) 11/14/16 04:42 Estimated GFR > 60 ml/min 11/14/16 04:42 BUN/Creatinine Ratio 10.00 % 11/14/16 04:42 Glucose 102 mg/dL (65-100) H 11/14/16 04:42 POC Glucose 104 (70-105) 11/15/16 12:10 Osmolality 332 Mosm/kg 10/14/16 07:03 Lactic Acid 1.8 mmol/L (0.7-2.0) 10/14/16 07:03 Calcium 7.5 mg/dL (8.4-10.2) L 11/14/16 04:42 Phosphorus 2.7 mg/dL (2.5-4.5) D 10/21/16 Unknown Magnesium 1.2 mg/dL (1.7-2.3) L 11/03/16 00:05 Total Bilirubin 0.3 mg/dL (0.1-1.2) 11/05/16 02:30 AST 9 units/L (5-40) 11/05/16 02:30 ALT 11 units/L (7-56) 11/05/16 02:30 Alkaline Phosphatase 119 units/L (35-129) 11/05/16 02:30 Ammonia 35.0 umol/L (25-60) 10/13/16 05:40 Total Creatine Kinase 107 units/L (30-135) 10/13/16 04:22 CK-MB (CK-2) 3.1 ng/mL (0.0-4.0) 10/13/16 04:22 CK-MB (CK-2) Rel Index 2.8 (0-4) 10/13/16 04:22 Troponin T < 0.010 ng/mL (0.00-0.029) 10/14/16 18:55 C-Reactive Protein 10.50 mg/dL (0.00-1.30) H 10/13/16 16:14 Total Protein 6.7 g/dL (6.3-8.2) 11/05/16 02:30 Albumin 1.9 g/dL (3.9-5) L 11/05/16 02:30 Albumin/Globulin Ratio 0.4 % 11/05/16 02:30 Amylase 30 units/L (27-131) 11/10/16 04:30 Lipase 41 units/L (13-60) 11/10/16 04:30 Vitamin B12 976.8 pg/mL (211-911) H 10/22/16 10:25 TSH 0.162 mlU/mL (0.270-4.200) L 10/22/16 14:50 Free T4 0.77 ng/dL (0.76-1.46) 10/22/16 14:50 Urine Color Yellow (Yellow) 11/14/16 19:39 Urine Turbidity Cloudy (Clear) 11/14/16 19:39 Urine pH 6.0 (5.0-7.0) 11/14/16 19:39 Ur Specific [place] 1.010 (1.003-1.030) 11/14/16 19:39 Urine Protein 30 mg/dl mg/dL (Negative) 11/14/16 19:39 Urine Glucose (UA) 50 mg/dL (Negative) 11/14/16 19:39 Urine Ketones 20 mg/dL (Negative) 11/14/16 19:39 Urine Blood Lg (Negative) 11/14/16 19:39 Urine Nitrite Neg (Negative) 11/14/16 19:39 Urine Bilirubin Neg (Negative) 11/14/16 19:39 Urine Urobilinogen < 2.0 mg/dL (<2.0) 11/14/16 19:39 Ur Leukocyte Esterase Sm (Negative) 11/14/16 19:39 Urine WBC (Auto) 3.0 /HPF (0.0-6.0) 11/14/16 19:39 Urine RBC (Auto) > 182.0 /HPF (0.0-6.0) 11/14/16 19:39 U Epithel Cells (Auto) 1.0 /HPF (0-13.0) 10/15/16 11:05 Urine Bacteria (Auto) 1+ /HPF (Negative) 11/14/16 19:39 Urine Mucus Few /HPF 11/14/16 19:39 Urine Yeast (Budding) 2+ /HPF 10/15/16 11:05 Urine Osmolality 487 Mosm/kg 10/13/16 Unknown Urine Creatinine < 4.2 mg/dL (0.1-20.0) 10/13/16 Unknown Protein/Creatinin Ratio 0.00 10/13/16 Unknown Urine Sodium 10 mEq/L 10/13/16 Unknown Urine Potassium 1.00 mEq/L 10/13/16 Unknown Urine Chloride 10.0 mEq/L (110-250) L 10/13/16 Unknown Urine Total Protein < 4 mg/dL (5-11.8) L 10/13/16 Unknown Vancomycin Trough 35.4 ug/mL (5.0-20.0) H 11/08/16 20:45 Random Vancomycin 19.4 ug/mL (0-40.0) 11/11/16 06:15 Ketones 107.3 mg/dL (0.2-2.8) H 10/13/16 04:22 Blood Type A POSITIVE 11/03/16 18:01 Antibody Screen Negative 11/03/16 18:01 Crossmatch See Detail 11/03/16 18:01
--- NOTE | 2016-11-15 21:00 | Progress Note ---
Subjective Date of service: 11/15/16 Principal diagnosis: respiratory failure on mechanical ventilatory support, DKA Interval history: No new issues Vital signs - Temp 100.2 CHEST - GOOD AIR ENTRY CVS - S1S2 ABD - BS_ LABS See lab section. ASSESSMENT 1. Sepsis 2. dka 3. resp failure 4. htn 5. clostridium difficile colitis 6. bilateral pneumonia 6. RIGHT LEG GANGRENE s/p amputation RECOMMENDATION 1. continue iv abx 2. cbc/bmp in am Objective - Constitutional Vitals: Vital Signs Temp Pulse Resp BP Pulse Ox 99.9 F H 112 H 27 H 151/85 100 11/15/16 20:00 11/15/16 20:13 11/15/16 18:00 11/15/16 20:13 11/15/16 20:13 Temperature -Last 24 Hours Temperature 99.9 F Temperature 99.1 F Temperature 100.2 F Temperature 99.1 F Temperature 99.9 F Temperature 99.6 F - Labs CBC & Chem 7: 11/14/16 04:42 11/14/16 04:42 Labs: Abnormal lab results 11/14/16 Range/Units 23:43 POC Glucose 167 H (70-105)
[2016-11-15] MEDS: HALDOL IV PRN (23:12)
[2016-11-16] MEDS: LOPRESSOR FEEDTUBE SCH ×4 (00:39→17:16)
[2016-11-16] MEDS: REGLAN IV SCH ×4 (00:40→17:16)
[2016-11-16] MEDS: HALDOL IV PRN ×2 (06:50→12:18)
[2016-11-16 09:25] LABS: Hematocrit 23.7 % (30.3-42.9); Mean Corpuscular HGB Conc 34 % (30-34); Mean Corpuscular Hemoglobin 32 pg (28-32); Mean Corpuscular Volume 94 fl (79-97); Platelet Count 357 K/mm3 (140-440); Red Blood Count 2.53 M/mm3 (3.65-5.03); Red Cell Distribution Width 15.9 % (13.2-15.2); White Blood Count 8.4 K/mm3 (4.5-11.0)
[2016-11-16 09:41] LABS: Anion Gap 19 mmol/L; BUN/Creatinine Ratio 7.14; Blood Urea Nitrogen 5 mg/dL (7-17); Calcium 6.6 mg/dL (8.4-10.2); Carbon Dioxide 19 mmol/L (22-30); Chloride 102.9 mmol/L (98-107); Glucose 103 mg/dL (65-100); Sodium 138 mmol/L (137-145)
[2016-11-16 09:45] LABS: Potassium 2.5 mmol/L (3.6-5.0)
[2016-11-16] MEDS: PLAVIX PO SCH (09:45)
[2016-11-16] MEDS: LEVAQUIN 750MG/150ML 750 MG/150 ML BAG IV SCH (09:45)
[2016-11-16] MEDS: PEPCID PO SCH ×2 (09:46→22:30)
[2016-11-16] MEDS: VANCOMYCIN VIAL 1,500 MG in NACL 0.9% 500 ML 500 ML IV SCH (10:38)
--- NOTE | 2016-11-16 11:13 | Progress Note ---
Assessment and Plan - Patient Problems (1) Acute respiratory failure with hypercapnia Current Visit: Yes Status: Acute (2) Altered mental status Current Visit: Yes Status: Acute Qualifiers: Altered mental status type: A Coma depth: C Coma timing: C (3) LUCY (acute kidney injury) Current Visit: Yes Status: Acute (4) DKA (diabetic ketoacidoses) Current Visit: Yes Status: Acute Qualifiers: Diabetes mellitus type: D Diabetes mellitus complication detail: D (5) Sepsis Current Visit: No Status: Acute Qualifiers: Sepsis type: S (6) Emesis Current Visit: Yes Status: Acute Qualifiers: Vomiting type: V Vomiting Intractability: V Nausea presence: N (7) Discharge planning issues Current Visit: No Status: Acute Subjective Date of service: 11/16/16 Principal diagnosis: respiratory failure on mechanical ventilatory support, DKA Interval history: Seen and examined at bedside; 24 hour events reviewed; nursing and respiratory care staff consulted; no adverse overnight events reported to me; Objective Vital Signs - 12hr 11/15/16 11/15/16 11/16/16 23:14 23:30 00:00 Temperature 100.5 F H Pulse Rate 152 H 152 H 151 H Pulse Rate [ 106 H From Monitor] Respiratory 14 16 14 Rate Blood Pressure 163/95 164/85 150/85 O2 Sat by Pulse 100 100 100 Oximetry 11/16/16 11/16/16 11/16/16 00:30 00:36 00:39 Temperature Pulse Rate 149 H 102 H 101 H Pulse Rate [ From Monitor] Respiratory 17 Rate Blood Pressure 146/89 146/89 146/89 O2 Sat by Pulse 100 100 Oximetry 11/16/16 11/16/16 11/16/16 01:00 01:30 02:00 Temperature Pulse Rate 104 H 94 H 91 H Pulse Rate [ From Monitor] Respiratory 22 19 23 Rate Blood Pressure 143/66 130/71 119/53 O2 Sat by Pulse 100 98 100 Oximetry 11/16/16 11/16/16 11/16/16 02:30 03:00 03:30 Temperature Pulse Rate 84 87 87 Pulse Rate [ From Monitor] Respiratory 17 25 H 22 Rate Blood Pressure 110/50 115/53 121/56 O2 Sat by Pulse 100 100 100 Oximetry 11/16/16 11/16/16 11/16/16 04:00 04:30 05:00 Temperature 98.7 F Pulse Rate 144 H 138 H 141 H Pulse Rate [ 139 H From Monitor] Respiratory 25 H 23 26 H Rate Blood Pressure 131/68 135/74 143/94 O2 Sat by Pulse 100 100 98 Oximetry 11/16/16 11/16/16 11/16/16 05:06 05:30 06:00 Temperature Pulse Rate 139 H 142 H Pulse Rate [ From Monitor] Respiratory 16 Rate Blood Pressure 143/94 139/82 143/94 O2 Sat by Pulse 99 98 99 Oximetry 11/16/16 11/16/16 11/16/16 06:29 06:30 07:00 Temperature Pulse Rate 139 H 137 H 78 Pulse Rate [ From Monitor] Respiratory 26 H 14 Rate Blood Pressure 138/83 136/82 142/73 O2 Sat by Pulse 98 100 Oximetry 11/16/16 11/16/16 11/16/16 07:30 08:00 08:30 Temperature 98.4 F Pulse Rate 84 80 81 Pulse Rate [ From Monitor] Respiratory 24 22 16 Rate Blood Pressure 142/83 143/70 152/69 O2 Sat by Pulse 100 100 100 Oximetry 11/16/16 11/16/16 11/16/16 09:00 09:30 10:00 Temperature Pulse Rate 81 88 83 Pulse Rate [ From Monitor] Respiratory 17 26 H 15 Rate Blood Pressure 162/66 155/81 132/64 O2 Sat by Pulse 100 100 100 Oximetry 11/16/16 11/16/16 10:15 10:19 Temperature Pulse Rate 83 87 Pulse Rate [ From Monitor] Respiratory 24 Rate Blood Pressure 132/64 132/64 O2 Sat by Pulse 100 100 Oximetry Constitutional: no acute distress, other (sedated) Eyes: non-icteric ENT: oropharynx moist Neck: supple, no lymphadenopathy Effort: mildly labored Ascultation: Bilateral: clear, diminished breath sounds, rales Cardiovascular: regular rate and rhythm, other (tachycardia) Gastrointestinal: normoactive bowel sounds, soft, non-tender, non-distended Integumentary: normal Extremities: no cyanosis, no edema, no ischemia or petechiae, other (s/p right BKA) Neurologic: non-focal exam (grossly), pupils equal and round, other (sedated) Psychiatric: other (sedated) CBC and BMP: 11/16/16 09:05 11/16/16 09:05 ABG, PT/INR, D-dimer: ABG POC ABG pH 7.449 (7.35-7.45) 11/13/16 17:00 POC ABG pCO2 22.9 (35-45) L 11/13/16 17:00 POC ABG pO2 53 (80-105) L 11/13/16 17:00 POC ABG HCO3 15.9 11/13/16 17:00 POC ABG Total CO2 17 11/13/16 17:00 POC ABG O2 Sat 89 11/13/16 17:00 PT/INR, D-dimer PT 16.4 Sec. (12.2-14.9) H 10/17/16 16:07 INR 1.33 (0.87-1.13) H 10/17/16 16:07 Abnormal lab findings: Abnormal Labs 10/13/16 10/13/16 10/13/16 06:38 06:38 07:23 WBC RBC Hgb Hct MCV RDW Plt Count Lymph % (Auto) [place] % (Auto) [place] # Seg Neutrophils % Seg Neuts % (Manual) Lymphocytes % (Manual) Monocytes % (Manual) Basophils % (Manual) Nucleated RBC % Seg Neutrophils # Seg Neutrophils # Man Lymphocytes # (Manual) Monocytes # (Manual) Eosinophils # (Manual) Basophils # (Manual) PT INR APTT Heparin Anti-Xa Level POC ABG pH POC ABG pCO2 POC ABG pO2 Sodium Potassium 6.2 H* Chloride Carbon Dioxide 8 L* BUN 85 H Creatinine 2.8 H Glucose 602 H* POC Glucose 495 H Calcium 7.9 L Phosphorus 6.9 H D Magnesium 3.0 H AST Alkaline Phosphatase C-Reactive Protein Total Protein Albumin Lipase Vitamin B12 TSH Urine WBC (Auto) Urine Chloride Urine Total Protein Vancomycin Trough Crossmatch 10/13/16 10/13/16 10/13/16 08:49 08:55 10:12 WBC RBC Hgb Hct MCV RDW Plt Count Lymph % (Auto) [place] % (Auto) [place] # Seg Neutrophils % Seg Neuts % (Manual) Lymphocytes % (Manual) Monocytes % (Manual) Basophils % (Manual) Nucleated RBC % Seg Neutrophils # Seg Neutrophils # Man Lymphocytes # (Manual) Monocytes # (Manual) Eosinophils # (Manual) Basophils # (Manual) PT INR APTT Heparin Anti-Xa Level POC ABG pH POC ABG pCO2 POC ABG pO2 Sodium Potassium 5.6 H Chloride Carbon Dioxide 11 L BUN 77 H Creatinine 2.7 H Glucose 457 H POC Glucose > 500 H 424 H Calcium 8.0 L Phosphorus Magnesium AST Alkaline Phosphatase C-Reactive Protein Total Protein Albumin Lipase Vitamin B12 TSH Urine WBC (Auto) Urine Chloride Urine Total Protein Vancomycin Trough Crossmatch 10/13/16 10/13/16 10/13/16 10:44 11:22 12:20 WBC RBC Hgb Hct MCV RDW Plt Count Lymph % (Auto) [place] % (Auto) [place] # Seg Neutrophils % Seg Neuts % (Manual) Lymphocytes % (Manual) Monocytes % (Manual) Basophils % (Manual) Nucleated RBC % Seg Neutrophils # Seg Neutrophils # Man Lymphocytes # (Manual) Monocytes # (Manual) Eosinophils # (Manual) Basophils # (Manual) PT INR APTT Heparin Anti-Xa Level POC ABG pH POC ABG pCO2 POC ABG pO2 Sodium Potassium 5.4 H Chloride Carbon Dioxide 14 L BUN 72 H Creatinine 2.6 H Glucose 383 H POC Glucose 391 H 313 H Calcium 8.2 L Phosphorus Magnesium AST Alkaline Phosphatase C-Reactive Protein Total Protein Albumin Lipase Vitamin B12 TSH Urine WBC (Auto) Urine Chloride Urine Total Protein Vancomycin Trough Crossmatch 10/13/16 10/13/16 10/13/16 13:32 14:44 15:57 WBC RBC Hgb Hct MCV RDW Plt Count Lymph % (Auto) [place] % (Auto) [place] # Seg Neutrophils % Seg Neuts % (Manual) Lymphocytes % (Manual) Monocytes % (Manual) Basophils % (Manual) Nucleated RBC % Seg Neutrophils # Seg Neutrophils # Man Lymphocytes # (Manual) Monocytes # (Manual) Eosinophils # (Manual) Basophils # (Manual) PT INR APTT Heparin Anti-Xa Level POC ABG pH POC ABG pCO2 POC ABG pO2 Sodium Potassium Chloride Carbon Dioxide BUN Creatinine Glucose POC Glucose 296 H 210 H 190 H Calcium Phosphorus Magnesium AST Alkaline Phosphatase C-Reactive Protein Total Protein Albumin Lipase Vitamin B12 TSH Urine WBC (Auto) Urine Chloride Urine Total Protein Vancomycin Trough Crossmatch 10/13/16 10/13/16 10/13/16 16:14 16:14 17:17 WBC RBC Hgb Hct MCV RDW Plt Count Lymph % (Auto) [place] % (Auto) [place] # Seg Neutrophils % Seg Neuts % (Manual) Lymphocytes % (Manual) Monocytes % (Manual) Basophils % (Manual) Nucleated RBC % Seg Neutrophils # Seg Neutrophils # Man Lymphocytes # (Manual) Monocytes # (Manual) Eosinophils # (Manual) Basophils # (Manual) PT INR APTT Heparin Anti-Xa Level POC ABG pH POC ABG pCO2 POC ABG pO2 Sodium Potassium Chloride Carbon Dioxide 17 L BUN 58 H Creatinine 1.8 H Glucose 172 H POC Glucose 193 H Calcium 7.7 L Phosphorus Magnesium AST Alkaline Phosphatase C-Reactive Protein 10.50 H Total Protein Albumin Lipase Vitamin B12 TSH Urine WBC (Auto) Urine Chloride Urine Total Protein Vancomycin Trough Crossmatch 10/13/16 10/13/16 10/13/16 17:55 18:32 19:41 WBC RBC Hgb Hct MCV RDW Plt Count Lymph % (Auto) [place] % (Auto) [place] # Seg Neutrophils % Seg Neuts % (Manual) Lymphocytes % (Manual) Monocytes % (Manual) Basophils % (Manual) Nucleated RBC % Seg Neutrophils # Seg Neutrophils # Man Lymphocytes # (Manual) Monocytes # (Manual) Eosinophils # (Manual) Basophils # (Manual) PT INR APTT Heparin Anti-Xa Level POC ABG pH POC ABG pCO2 30.6 L POC ABG pO2 218 H Sodium Potassium Chloride Carbon Dioxide BUN Creatinine Glucose POC Glucose 192 H 177 H Calcium Phosphorus Magnesium AST Alkaline Phosphatase C-Reactive Protein Total Protein Albumin Lipase Vitamin B12 TSH Urine WBC (Auto) Urine Chloride Urine Total Protein Vancomycin Trough Crossmatch 10/13/16 10/13/16 10/13/16 20:54 22:07 23:13 WBC RBC Hgb Hct MCV RDW Plt Count Lymph % (Auto) [place] % (Auto) [place] # Seg Neutrophils % Seg Neuts % (Manual) Lymphocytes % (Manual) Monocytes % (Manual) Basophils % (Manual) Nucleated RBC % Seg Neutrophils # Seg Neutrophils # Man Lymphocytes # (Manual) Monocytes # (Manual) Eosinophils # (Manual) Basophils # (Manual) PT INR APTT Heparin Anti-Xa Level POC ABG pH POC ABG pCO2 POC ABG pO2 Sodium Potassium Chloride Carbon Dioxide BUN Creatinine Glucose POC Glucose 178 H 160 H 168 H Calcium Phosphorus Magnesium AST Alkaline Phosphatase C-Reactive Protein Total Protein Albumin Lipase Vitamin B12 TSH Urine WBC (Auto) Urine Chloride Urine Total Protein Vancomycin Trough Crossmatch 10/13/16 10/13/16 10/14/16 23:25 Unknown 00:21 WBC RBC Hgb Hct MCV RDW Plt Count Lymph % (Auto) [place] % (Auto) [place] # Seg Neutrophils % Seg Neuts % (Manual) Lymphocytes % (Manual) Monocytes % (Manual) Basophils % (Manual) Nucleated RBC % Seg Neutrophils # Seg Neutrophils # Man Lymphocytes # (Manual) Monocytes # (Manual) Eosinophils # (Manual) Basophils # (Manual) PT INR APTT Heparin Anti-Xa Level POC ABG pH POC ABG pCO2 POC ABG pO2 Sodium 148 H Potassium Chloride 114.6 H Carbon Dioxide 17 L BUN 56 H Creatinine 1.6 H Glucose 151 H POC Glucose 171 H Calcium 7.8 L Phosphorus Magnesium AST Alkaline Phosphatase C-Reactive Protein Total Protein Albumin Lipase Vitamin B12 TSH Urine WBC (Auto) Urine Chloride 10.0 L Urine Total Protein < 4 L Vancomycin Trough Crossmatch 10/14/16 10/14/16 10/14/16 01:22 02:29 03:30 WBC RBC Hgb Hct MCV RDW Plt Count Lymph % (Auto) [place] % (Auto) [place] # Seg Neutrophils % Seg Neuts % (Manual) Lymphocytes % (Manual) Monocytes % (Manual) Basophils % (Manual) Nucleated RBC % Seg Neutrophils # Seg Neutrophils # Man Lymphocytes # (Manual) Monocytes # (Manual) Eosinophils # (Manual) Basophils # (Manual) PT INR APTT Heparin Anti-Xa Level POC ABG pH POC ABG pCO2 POC ABG pO2 Sodium Potassium Chloride Carbon Dioxide BUN Creatinine Glucose POC Glucose 144 H 136 H 143 H Calcium Phosphorus Magnesium AST Alkaline Phosphatase C-Reactive Protein Total Protein Albumin Lipase Vitamin B12 TSH Urine WBC (Auto) Urine Chloride Urine Total Protein Vancomycin Trough Crossmatch 10/14/16 10/14/16 10/14/16 04:28 05:16 05:44 WBC RBC Hgb Hct MCV RDW Plt Count Lymph % (Auto) [place] % (Auto) [place] # Seg Neutrophils % Seg Neuts % (Manual) Lymphocytes % (Manual) Monocytes % (Manual) Basophils % (Manual) Nucleated RBC % Seg Neutrophils # Seg Neutrophils # Man Lymphocytes # (Manual) Monocytes # (Manual) Eosinophils # (Manual) Basophils # (Manual) PT INR APTT Heparin Anti-Xa Level POC ABG pH POC ABG pCO2 28.2 L POC ABG pO2 125 H Sodium Potassium Chloride Carbon Dioxide BUN Creatinine Glucose POC Glucose 133 H 160 H Calcium Phosphorus Magnesium AST Alkaline Phosphatase C-Reactive Protein Total Protein Albumin Lipase Vitamin B12 TSH Urine WBC (Auto) Urine Chloride Urine Total Protein Vancomycin Trough Crossmatch 10/14/16 10/14/16 10/14/16 06:12 06:45 07:03 WBC RBC Hgb Hct MCV RDW Plt Count Lymph % (Auto) [place] % (Auto) [place] # Seg Neutrophils % Seg Neuts % (Manual) Lymphocytes % (Manual) Monocytes % (Manual) Basophils % (Manual) Nucleated RBC % Seg Neutrophils # Seg Neutrophils # Man Lymphocytes # (Manual) Monocytes # (Manual) Eosinophils # (Manual) Basophils # (Manual) PT INR APTT Heparin Anti-Xa Level POC ABG pH POC ABG pCO2 POC ABG pO2 Sodium 149 H Potassium Chloride 115.4 H Carbon Dioxide 17 L BUN 45 H Creatinine 1.5 H Glucose 139 H POC Glucose 149 H Calcium 7.4 L Phosphorus 1.0 L D Magnesium AST Alkaline Phosphatase C-Reactive Protein Total Protein Albumin Lipase Vitamin B12 TSH Urine WBC (Auto) Urine Chloride Urine Total Protein Vancomycin Trough Crossmatch 10/14/16 10/14/16 10/14/16 07:03 08:02 09:16 WBC RBC Hgb Hct MCV RDW Plt Count Lymph % (Auto) [place] % (Auto) [place] # Seg Neutrophils % Seg Neuts % (Manual) Lymphocytes % (Manual) Monocytes % (Manual) Basophils % (Manual) Nucleated RBC % Seg Neutrophils # Seg Neutrophils # Man Lymphocytes # (Manual) Monocytes # (Manual) Eosinophils # (Manual) Basophils # (Manual) PT INR APTT Heparin Anti-Xa Level POC ABG pH POC ABG pCO2 POC ABG pO2 Sodium Potassium Chloride Carbon Dioxide BUN Creatinine Glucose POC Glucose 156 H 158 H Calcium Phosphorus Magnesium AST Alkaline Phosphatase C-Reactive Protein Total Protein Albumin Lipase 738 H Vitamin B12 TSH Urine WBC (Auto) Urine Chloride Urine Total Protein Vancomycin Trough Crossmatch 10/14/16 10/14/16 10/14/16 10:26 11:03 11:57 WBC RBC Hgb Hct MCV RDW Plt Count Lymph % (Auto) [place] % (Auto) [place] # Seg Neutrophils % Seg Neuts % (Manual) Lymphocytes % (Manual) Monocytes % (Manual) Basophils % (Manual) Nucleated RBC % Seg Neutrophils # Seg Neutrophils # Man Lymphocytes # (Manual) Monocytes # (Manual) Eosinophils # (Manual) Basophils # (Manual) PT INR APTT Heparin Anti-Xa Level POC ABG pH 7.198 L POC ABG pCO2 47.5 H POC ABG pO2 Sodium Potassium Chloride Carbon Dioxide BUN Creatinine Glucose POC Glucose 174 H 189 H Calcium Phosphorus Magnesium AST Alkaline Phosphatase C-Reactive Protein Total Protein Albumin Lipase Vitamin B12 TSH Urine WBC (Auto) Urine Chloride Urine Total Protein Vancomycin Trough Crossmatch 10/14/16 10/14/16 10/14/16 12:02 12:02 13:11 WBC 13.4 H RBC 3.60 L Hgb Hct MCV 98 H D RDW 13.1 L Plt Count Lymph % (Auto) [place] % (Auto) [place] # Seg Neutrophils % Seg Neuts % (Manual) Lymphocytes % (Manual) Monocytes % (Manual) Basophils % (Manual) Nucleated RBC % Seg Neutrophils # Seg Neutrophils # Man Lymphocytes # (Manual) Monocytes # (Manual) Eosinophils # (Manual) Basophils # (Manual) PT INR APTT Heparin Anti-Xa Level POC ABG pH POC ABG pCO2 POC ABG pO2 Sodium Potassium Chloride 110.7 H Carbon Dioxide 19 L BUN 38 H Creatinine 1.4 H Glucose 182 H POC Glucose 173 H Calcium 7.5 L Phosphorus Magnesium AST Alkaline Phosphatase C-Reactive Protein Total Protein Albumin Lipase Vitamin B12 TSH Urine WBC (Auto) Urine Chloride Urine Total Protein Vancomycin Trough Crossmatch 10/14/16 10/14/16 10/14/16 14:24 15:31 16:36 WBC RBC Hgb Hct MCV RDW Plt Count Lymph % (Auto) [place] % (Auto) [place] # Seg Neutrophils % Seg Neuts % (Manual) Lymphocytes % (Manual) Monocytes % (Manual) Basophils % (Manual) Nucleated RBC % Seg Neutrophils # Seg Neutrophils # Man Lymphocytes # (Manual) Monocytes # (Manual) Eosinophils # (Manual) Basophils # (Manual) PT INR APTT Heparin Anti-Xa Level POC ABG pH POC ABG pCO2 POC ABG pO2 Sodium Potassium Chloride Carbon Dioxide BUN Creatinine Glucose POC Glucose 123 H 124 H 156 H Calcium Phosphorus Magnesium AST Alkaline Phosphatase C-Reactive Protein Total Protein Albumin Lipase Vitamin B12 TSH Urine WBC (Auto) Urine Chloride Urine Total Protein Vancomycin Trough Crossmatch 10/14/16 10/14/16 10/14/16 17:43 19:00 20:08 WBC RBC Hgb Hct MCV RDW Plt Count Lymph % (Auto) [place] % (Auto) [place] # Seg Neutrophils % Seg Neuts % (Manual) Lymphocytes % (Manual) Monocytes % (Manual) Basophils % (Manual) Nucleated RBC % Seg Neutrophils # Seg Neutrophils # Man Lymphocytes # (Manual) Monocytes # (Manual) Eosinophils # (Manual) Basophils # (Manual) PT INR APTT Heparin Anti-Xa Level POC ABG pH POC ABG pCO2 POC ABG pO2 Sodium Potassium Chloride Carbon Dioxide BUN Creatinine Glucose POC Glucose 154 H 123 H 138 H Calcium Phosphorus Magnesium AST Alkaline Phosphatase C-Reactive Protein Total Protein Albumin Lipase Vitamin B12 TSH Urine WBC (Auto) Urine Chloride Urine Total Protein Vancomycin Trough Crossmatch 10/14/16 10/14/16 10/14/16 21:17 22:25 23:37 WBC RBC Hgb Hct MCV RDW Plt Count Lymph % (Auto) [place] % (Auto) [place] # Seg Neutrophils % Seg Neuts % (Manual) Lymphocytes % (Manual) Monocytes % (Manual) Basophils % (Manual) Nucleated RBC % Seg Neutrophils # Seg Neutrophils # Man Lymphocytes # (Manual) Monocytes # (Manual) Eosinophils # (Manual) Basophils # (Manual) PT INR APTT Heparin Anti-Xa Level POC ABG pH POC ABG pCO2 POC ABG pO2 Sodium Potassium Chloride Carbon Dioxide BUN Creatinine Glucose POC Glucose 148 H 132 H 137 H Calcium Phosphorus Magnesium AST Alkaline Phosphatase C-Reactive Protein Total Protein Albumin Lipase Vitamin B12 TSH Urine WBC (Auto) Urine Chloride Urine Total Protein Vancomycin Trough Crossmatch 10/15/16 10/15/16 10/15/16 00:49 01:53 03:06 WBC RBC Hgb Hct MCV RDW Plt Count Lymph % (Auto) [place] % (Auto) [place] # Seg Neutrophils % Seg Neuts % (Manual) Lymphocytes % (Manual) Monocytes % (Manual) Basophils % (Manual) Nucleated RBC % Seg Neutrophils # Seg Neutrophils # Man Lymphocytes # (Manual) Monocytes # (Manual) Eosinophils # (Manual) Basophils # (Manual) PT INR APTT Heparin Anti-Xa Level POC ABG pH POC ABG pCO2 POC ABG pO2 Sodium Potassium Chloride Carbon Dioxide BUN Creatinine Glucose POC Glucose 132 H 134 H 134 H Calcium Phosphorus Magnesium AST Alkaline Phosphatase C-Reactive Protein Total Protein Albumin Lipase Vitamin B12 TSH Urine WBC (Auto) Urine Chloride Urine Total Protein Vancomycin Trough Crossmatch 10/15/16 10/15/16 10/15/16 04:40 04:46 06:21 WBC RBC Hgb Hct MCV RDW Plt Count Lymph % (Auto) [place] % (Auto) [place] # Seg Neutrophils % Seg Neuts % (Manual) Lymphocytes % (Manual) Monocytes % (Manual) Basophils % (Manual) Nucleated RBC % Seg Neutrophils # Seg Neutrophils # Man Lymphocytes # (Manual) Monocytes # (Manual) Eosinophils # (Manual) Basophils # (Manual) PT INR APTT Heparin Anti-Xa Level POC ABG pH POC ABG pCO2 30.7 L POC ABG pO2 108 H Sodium Potassium Chloride 109.0 H Carbon Dioxide 17 L BUN 27 H Creatinine Glucose 124 H POC Glucose 160 H Calcium 7.5 L Phosphorus Magnesium AST 79 H Alkaline Phosphatase C-Reactive Protein Total Protein 5.5 L Albumin 3.0 L Lipase Vitamin B12 TSH Urine WBC (Auto) Urine Chloride Urine Total Protein Vancomycin Trough Crossmatch 10/15/16 10/15/16 10/15/16 07:12 08:01 09:03 WBC RBC Hgb Hct MCV RDW Plt Count Lymph % (Auto) [place] % (Auto) [place] # Seg Neutrophils % Seg Neuts % (Manual) Lymphocytes % (Manual) Monocytes % (Manual) Basophils % (Manual) Nucleated RBC % Seg Neutrophils # Seg Neutrophils # Man Lymphocytes # (Manual) Monocytes # (Manual) Eosinophils # (Manual) Basophils # (Manual) PT INR APTT Heparin Anti-Xa Level POC ABG pH POC ABG pCO2 POC ABG pO2 Sodium Potassium Chloride Carbon Dioxide BUN Creatinine Glucose POC Glucose 179 H 187 H 165 H Calcium Phosphorus Magnesium AST Alkaline Phosphatase C-Reactive Protein Total Protein Albumin Lipase Vitamin B12 TSH Urine WBC (Auto) Urine Chloride Urine Total Protein Vancomycin Trough Crossmatch 10/15/16 10/15/16 10/15/16 10:06 10:06 10:07 WBC 12.1 H RBC 3.01 L Hgb 9.7 L Hct 29.6 L MCV 98 H RDW Plt Count 129 L Lymph % (Auto) [place] % (Auto) [place] # Seg Neutrophils % Seg Neuts % (Manual) Lymphocytes % (Manual) Monocytes % (Manual) Basophils % (Manual) Nucleated RBC % Seg Neutrophils # Seg Neutrophils # Man Lymphocytes # (Manual) Monocytes # (Manual) Eosinophils # (Manual) Basophils # (Manual) PT INR APTT Heparin Anti-Xa Level POC ABG pH POC ABG pCO2 POC ABG pO2 Sodium Potassium 3.2 L D Chloride 109.6 H Carbon Dioxide 18 L BUN 22 H Creatinine Glucose 127 H POC Glucose 147 H Calcium 7.0 L Phosphorus Magnesium AST Alkaline Phosphatase C-Reactive Protein Total Protein Albumin Lipase Vitamin B12 TSH Urine WBC (Auto) Urine Chloride Urine Total Protein Vancomycin Trough Crossmatch 10/15/16 10/15/16 10/15/16 11:05 11:06 11:57 WBC RBC Hgb Hct MCV RDW Plt Count Lymph % (Auto) [place] % (Auto) [place] # Seg Neutrophils % Seg Neuts % (Manual) Lymphocytes % (Manual) Monocytes % (Manual) Basophils % (Manual) Nucleated RBC % Seg Neutrophils # Seg Neutrophils # Man Lymphocytes # (Manual) Monocytes # (Manual) Eosinophils # (Manual) Basophils # (Manual) PT INR APTT Heparin Anti-Xa Level POC ABG pH 7.305 L POC ABG pCO2 POC ABG pO2 Sodium Potassium Chloride Carbon Dioxide BUN Creatinine Glucose POC Glucose 145 H Calcium Phosphorus Magnesium AST Alkaline Phosphatase C-Reactive Protein Total Protein Albumin Lipase Vitamin B12 TSH Urine WBC (Auto) 7.0 H Urine Chloride Urine Total Protein Vancomycin Trough Crossmatch 10/15/16 10/15/16 10/15/16 12:04 13:59 15:24 WBC RBC Hgb Hct MCV RDW Plt Count Lymph % (Auto) [place] % (Auto) [place] # Seg Neutrophils % Seg Neuts % (Manual) Lymphocytes % (Manual) Monocytes % (Manual) Basophils % (Manual) Nucleated RBC % Seg Neutrophils # Seg Neutrophils # Man Lymphocytes # (Manual) Monocytes # (Manual) Eosinophils # (Manual) Basophils # (Manual) PT INR APTT Heparin Anti-Xa Level POC ABG pH POC ABG pCO2 POC ABG pO2 Sodium Potassium Chloride Carbon Dioxide BUN Creatinine Glucose POC Glucose 123 H 147 H 153 H Calcium Phosphorus Magnesium AST Alkaline Phosphatase C-Reactive Protein Total Protein Albumin Lipase Vitamin B12 TSH Urine WBC (Auto) Urine Chloride Urine Total Protein Vancomycin Trough Crossmatch 10/15/16 10/15/16 10/15/16 16:30 17:34 18:30 WBC RBC Hgb Hct MCV RDW Plt Count Lymph % (Auto) [place] % (Auto) [place] # Seg Neutrophils % Seg Neuts % (Manual) Lymphocytes % (Manual) Monocytes % (Manual) Basophils % (Manual) Nucleated RBC % Seg Neutrophils # Seg Neutrophils # Man Lymphocytes # (Manual) Monocytes # (Manual) Eosinophils # (Manual) Basophils # (Manual) PT INR APTT Heparin Anti-Xa Level POC ABG pH POC ABG pCO2 POC ABG pO2 Sodium Potassium Chloride Carbon Dioxide BUN Creatinine Glucose POC Glucose 223 H 236 H 164 H Calcium Phosphorus Magnesium AST Alkaline Phosphatase C-Reactive Protein Total Protein Albumin Lipase Vitamin B12 TSH Urine WBC (Auto) Urine Chloride Urine Total Protein Vancomycin Trough Crossmatch 10/15/16 10/15/16 10/15/16 19:14 20:31 21:23 WBC RBC Hgb Hct MCV RDW Plt Count Lymph % (Auto) [place] % (Auto) [place] # Seg Neutrophils % Seg Neuts % (Manual) Lymphocytes % (Manual) Monocytes % (Manual) Basophils % (Manual) Nucleated RBC % Seg Neutrophils # Seg Neutrophils # Man Lymphocytes # (Manual) Monocytes # (Manual) Eosinophils # (Manual) Basophils # (Manual) PT INR APTT Heparin Anti-Xa Level POC ABG pH POC ABG pCO2 POC ABG pO2 Sodium Potassium Chloride Carbon Dioxide BUN Creatinine Glucose POC Glucose 138 H 158 H 158 H Calcium Phosphorus Magnesium AST Alkaline Phosphatase C-Reactive Protein Total Protein Albumin Lipase Vitamin B12 TSH Urine WBC (Auto) Urine Chloride Urine Total Protein Vancomycin Trough Crossmatch 10/15/16 10/15/16 10/16/16 22:04 22:57 00:11 WBC RBC Hgb Hct MCV RDW Plt Count Lymph % (Auto) [place] % (Auto) [place] # Seg Neutrophils % Seg Neuts % (Manual) Lymphocytes % (Manual) Monocytes % (Manual) Basophils % (Manual) Nucleated RBC % Seg Neutrophils # Seg Neutrophils # Man Lymphocytes # (Manual) Monocytes # (Manual) Eosinophils # (Manual) Basophils # (Manual) PT INR APTT Heparin Anti-Xa Level POC ABG pH POC ABG pCO2 POC ABG pO2 Sodium Potassium Chloride Carbon Dioxide BUN Creatinine Glucose POC Glucose 168 H 213 H 166 H Calcium Phosphorus Magnesium AST Alkaline Phosphatase C-Reactive Protein Total Protein Albumin Lipase Vitamin B12 TSH Urine WBC (Auto) Urine Chloride Urine Total Protein Vancomycin Trough Crossmatch 10/16/16 10/16/16 10/16/16 01:16 02:32 03:38 WBC RBC Hgb Hct MCV RDW Plt Count Lymph % (Auto) [place] % (Auto) [place] # Seg Neutrophils % Seg Neuts % (Manual) Lymphocytes % (Manual) Monocytes % (Manual) Basophils % (Manual) Nucleated RBC % Seg Neutrophils # Seg Neutrophils # Man Lymphocytes # (Manual) Monocytes # (Manual) Eosinophils # (Manual) Basophils # (Manual) PT INR APTT Heparin Anti-Xa Level POC ABG pH POC ABG pCO2 POC ABG pO2 Sodium Potassium Chloride Carbon Dioxide BUN Creatinine Glucose POC Glucose 171 H 164 H 147 H Calcium Phosphorus Magnesium AST Alkaline Phosphatase C-Reactive Protein Total Protein Albumin Lipase Vitamin B12 TSH Urine WBC (Auto) Urine Chloride Urine Total Protein Vancomycin Trough Crossmatch 10/16/16 10/16/16 10/16/16 04:14 04:14 04:49 WBC RBC Hgb Hct MCV RDW Plt Count Lymph % (Auto) [place] % (Auto) [place] # Seg Neutrophils % Seg Neuts % (Manual) Lymphocytes % (Manual) Monocytes % (Manual) Basophils % (Manual) Nucleated RBC % Seg Neutrophils # Seg Neutrophils # Man Lymphocytes # (Manual) Monocytes # (Manual) Eosinophils # (Manual) Basophils # (Manual) PT INR APTT Heparin Anti-Xa Level POC ABG pH POC ABG pCO2 POC ABG pO2 Sodium 147 H Potassium Chloride 110.9 H Carbon Dioxide 19 L BUN Creatinine Glucose 139 H POC Glucose 144 H Calcium 7.3 L Phosphorus 2.3 L Magnesium AST Alkaline Phosphatase C-Reactive Protein Total Protein Albumin Lipase 143 H Vitamin B12 TSH Urine WBC (Auto) Urine Chloride Urine Total Protein Vancomycin Trough Crossmatch 10/16/16 10/16/16 10/16/16 05:03 05:41 05:58 WBC 16.5 H RBC 3.36 L Hgb Hct MCV 98 H RDW 13.1 L Plt Count Lymph % (Auto) 8.5 L [place] % (Auto) 7.6 H [place] # 1.3 H Seg Neutrophils % 83.3 H Seg Neuts % (Manual) Lymphocytes % (Manual) Monocytes % (Manual) Basophils % (Manual) Nucleated RBC % Seg Neutrophils # 13.8 H Seg Neutrophils # Man Lymphocytes # (Manual) Monocytes # (Manual) Eosinophils # (Manual) Basophils # (Manual) PT INR APTT Heparin Anti-Xa Level POC ABG pH POC ABG pCO2 30.7 L POC ABG pO2 128 H Sodium Potassium Chloride Carbon Dioxide BUN Creatinine Glucose POC Glucose 131 H Calcium Phosphorus Magnesium AST Alkaline Phosphatase C-Reactive Protein Total Protein Albumin Lipase Vitamin B12 TSH Urine WBC (Auto) Urine Chloride Urine Total Protein Vancomycin Trough Crossmatch 10/16/16 10/16/16 10/16/16 06:32 09:27 09:35 WBC RBC Hgb Hct MCV RDW Plt Count Lymph % (Auto) [place] % (Auto) [place] # Seg Neutrophils % Seg Neuts % (Manual) Lymphocytes % (Manual) Monocytes % (Manual) Basophils % (Manual) Nucleated RBC % Seg Neutrophils # Seg Neutrophils # Man Lymphocytes # (Manual) Monocytes # (Manual) Eosinophils # (Manual) Basophils # (Manual) PT INR APTT Heparin Anti-Xa Level POC ABG pH POC ABG pCO2 32.8 L POC ABG pO2 137 H Sodium Potassium Chloride Carbon Dioxide BUN Creatinine Glucose POC Glucose 121 H 150 H Calcium Phosphorus Magnesium AST Alkaline Phosphatase C-Reactive Protein Total Protein Albumin Lipase Vitamin B12 TSH Urine WBC (Auto) Urine Chloride Urine Total Protein Vancomycin Trough Crossmatch 10/16/16 10/16/16 10/16/16 10:47 13:27 14:24 WBC RBC Hgb Hct MCV RDW Plt Count Lymph % (Auto) [place] % (Auto) [place] # Seg Neutrophils % Seg Neuts % (Manual) Lymphocytes % (Manual) Monocytes % (Manual) Basophils % (Manual) Nucleated RBC % Seg Neutrophils # Seg Neutrophils # Man Lymphocytes # (Manual) Monocytes # (Manual) Eosinophils # (Manual) Basophils # (Manual) PT INR APTT Heparin Anti-Xa Level POC ABG pH POC ABG pCO2 POC ABG pO2 Sodium Potassium Chloride Carbon Dioxide BUN Creatinine Glucose POC Glucose 184 H 171 H 174 H Calcium Phosphorus Magnesium AST Alkaline Phosphatase C-Reactive Protein Total Protein Albumin Lipase Vitamin B12 TSH Urine WBC (Auto) Urine Chloride Urine Total Protein Vancomycin Trough Crossmatch 10/16/16 10/16/16 10/16/16 15:48 16:26 18:17 WBC RBC Hgb Hct MCV RDW Plt Count Lymph % (Auto) [place] % (Auto) [place] # Seg Neutrophils % Seg Neuts % (Manual) Lymphocytes % (Manual) Monocytes % (Manual) Basophils % (Manual) Nucleated RBC % Seg Neutrophils # Seg Neutrophils # Man Lymphocytes # (Manual) Monocytes # (Manual) Eosinophils # (Manual) Basophils # (Manual) PT INR APTT Heparin Anti-Xa Level POC ABG pH POC ABG pCO2 POC ABG pO2 Sodium Potassium Chloride Carbon Dioxide BUN Creatinine Glucose POC Glucose 205 H 204 H 234 H Calcium Phosphorus Magnesium AST Alkaline Phosphatase C-Reactive Protein Total Protein Albumin Lipase Vitamin B12 TSH Urine WBC (Auto) Urine Chloride Urine Total Protein Vancomycin Trough Crossmatch 10/16/16 10/16/16 10/16/16 19:40 20:33 21:36 WBC RBC Hgb Hct MCV RDW Plt Count Lymph % (Auto) [place] % (Auto) [place] # Seg Neutrophils % Seg Neuts % (Manual) Lymphocytes % (Manual) Monocytes % (Manual) Basophils % (Manual) Nucleated RBC % Seg Neutrophils # Seg Neutrophils # Man Lymphocytes # (Manual) Monocytes # (Manual) Eosinophils # (Manual) Basophils # (Manual) PT INR APTT Heparin Anti-Xa Level POC ABG pH POC ABG pCO2 POC ABG pO2 Sodium Potassium Chloride Carbon Dioxide BUN Creatinine Glucose POC Glucose 167 H 153 H 158 H Calcium Phosphorus Magnesium AST Alkaline Phosphatase C-Reactive Protein Total Protein Albumin Lipase Vitamin B12 TSH Urine WBC (Auto) Urine Chloride Urine Total Protein Vancomycin Trough Crossmatch 10/16/16 10/16/16 10/17/16 22:54 23:48 00:47 WBC RBC Hgb Hct MCV RDW Plt Count Lymph % (Auto) [place] % (Auto) [place] # Seg Neutrophils % Seg Neuts % (Manual) Lymphocytes % (Manual) Monocytes % (Manual) Basophils % (Manual) Nucleated RBC % Seg Neutrophils # Seg Neutrophils # Man Lymphocytes # (Manual) Monocytes # (Manual) Eosinophils # (Manual) Basophils # (Manual) PT INR APTT Heparin Anti-Xa Level POC ABG pH POC ABG pCO2 POC ABG pO2 Sodium Potassium Chloride Carbon Dioxide BUN Creatinine Glucose POC Glucose 180 H 207 H 196 H Calcium Phosphorus Magnesium AST Alkaline Phosphatase C-Reactive Protein Total Protein Albumin Lipase Vitamin B12 TSH Urine WBC (Auto) Urine Chloride Urine Total Protein Vancomycin Trough Crossmatch 10/17/16 10/17/16 10/17/16 01:57 02:49 03:50 WBC RBC Hgb Hct MCV RDW Plt Count Lymph % (Auto) [place] % (Auto) [place] # Seg Neutrophils % Seg Neuts % (Manual) Lymphocytes % (Manual) Monocytes % (Manual) Basophils % (Manual) Nucleated RBC % Seg Neutrophils # Seg Neutrophils # Man Lymphocytes # (Manual) Monocytes # (Manual) Eosinophils # (Manual) Basophils # (Manual) PT INR APTT Heparin Anti-Xa Level POC ABG pH POC ABG pCO2 POC ABG pO2 Sodium Potassium Chloride Carbon Dioxide BUN Creatinine Glucose POC Glucose 180 H 151 H 106 H Calcium Phosphorus Magnesium AST Alkaline Phosphatase C-Reactive Protein Total Protein Albumin Lipase Vitamin B12 TSH Urine WBC (Auto) Urine Chloride Urine Total Protein Vancomycin Trough Crossmatch 10/17/16 10/17/16 10/17/16 04:59 06:03 06:35 WBC RBC Hgb Hct MCV RDW Plt Count Lymph % (Auto) [place] % (Auto) [place] # Seg Neutrophils % Seg Neuts % (Manual) Lymphocytes % (Manual) Monocytes % (Manual) Basophils % (Manual) Nucleated RBC % Seg Neutrophils # Seg Neutrophils # Man Lymphocytes # (Manual) Monocytes # (Manual) Eosinophils # (Manual) Basophils # (Manual) PT INR APTT Heparin Anti-Xa Level POC ABG pH 7.453 H POC ABG pCO2 30.1 L POC ABG pO2 111 H Sodium Potassium Chloride Carbon Dioxide BUN Creatinine Glucose POC Glucose 145 H 157 H Calcium Phosphorus Magnesium AST Alkaline Phosphatase C-Reactive Protein Total Protein Albumin Lipase Vitamin B12 TSH Urine WBC (Auto) Urine Chloride Urine Total Protein Vancomycin Trough Crossmatch 10/17/16 10/17/16 10/17/16 07:08 07:11 08:01 WBC RBC Hgb Hct MCV RDW Plt Count Lymph % (Auto) [place] % (Auto) [place] # Seg Neutrophils % Seg Neuts % (Manual) Lymphocytes % (Manual) Monocytes % (Manual) Basophils % (Manual) Nucleated RBC % Seg Neutrophils # Seg Neutrophils # Man Lymphocytes # (Manual) Monocytes # (Manual) Eosinophils # (Manual) Basophils # (Manual) PT INR APTT Heparin Anti-Xa Level POC ABG pH POC ABG pCO2 POC ABG pO2 Sodium 147 H Potassium Chloride 113.8 H Carbon Dioxide 19 L BUN Creatinine Glucose 136 H POC Glucose 136 H 152 H Calcium 7.7 L Phosphorus Magnesium AST Alkaline Phosphatase C-Reactive Protein Total Protein Albumin Lipase Vitamin B12 TSH Urine WBC (Auto) Urine Chloride Urine Total Protein Vancomycin Trough Crossmatch 10/17/16 10/17/16 10/17/16 08:23 09:17 09:53 WBC 18.1 H RBC 3.01 L Hgb 9.7 L Hct 29.4 L MCV 98 H RDW Plt Count 116 L Lymph % (Auto) [place] % (Auto) [place] # Seg Neutrophils % Seg Neuts % (Manual) 77.0 H Lymphocytes % (Manual) 4.0 L Monocytes % (Manual) 12.0 H Basophils % (Manual) Nucleated RBC % Seg Neutrophils # Seg Neutrophils # Man 13.9 H Lymphocytes # (Manual) 0.7 L Monocytes # (Manual) 2.2 H Eosinophils # (Manual) Basophils # (Manual) PT INR APTT Heparin Anti-Xa Level POC ABG pH POC ABG pCO2 POC ABG pO2 Sodium Potassium Chloride Carbon Dioxide BUN Creatinine Glucose POC Glucose 148 H 137 H Calcium Phosphorus Magnesium AST Alkaline Phosphatase C-Reactive Protein Total Protein Albumin Lipase Vitamin B12 TSH Urine WBC (Auto) Urine Chloride Urine Total Protein Vancomycin Trough Crossmatch 10/17/16 10/17/16 10/17/16 11:43 16:07 17:42 WBC RBC Hgb Hct MCV RDW Plt Count Lymph % (Auto) [place] % (Auto) [place] # Seg Neutrophils % Seg Neuts % (Manual) Lymphocytes % (Manual) Monocytes % (Manual) Basophils % (Manual) Nucleated RBC % Seg Neutrophils # Seg Neutrophils # Man Lymphocytes # (Manual) Monocytes # (Manual) Eosinophils # (Manual) Basophils # (Manual) PT 16.4 H INR 1.33 H APTT 38.8 H Heparin Anti-Xa Level POC ABG pH POC ABG pCO2 POC ABG pO2 Sodium Potassium Chloride Carbon Dioxide BUN Creatinine Glucose POC Glucose 179 H 153 H Calcium Phosphorus Magnesium AST Alkaline Phosphatase C-Reactive Protein Total Protein Albumin Lipase Vitamin B12 TSH Urine WBC (Auto) Urine Chloride Urine Total Protein Vancomycin Trough Crossmatch 10/17/16 10/18/16 10/18/16 22:54 04:37 05:39 WBC RBC Hgb Hct MCV RDW Plt Count Lymph % (Auto) [place] % (Auto) [place] # Seg Neutrophils % Seg Neuts % (Manual) Lymphocytes % (Manual) Monocytes % (Manual) Basophils % (Manual) Nucleated RBC % Seg Neutrophils # Seg Neutrophils # Man Lymphocytes # (Manual) Monocytes # (Manual) Eosinophils # (Manual) Basophils # (Manual) PT INR APTT Heparin Anti-Xa Level 0.27 L POC ABG pH 7.454 H POC ABG pCO2 30.8 L POC ABG pO2 115 H Sodium Potassium Chloride Carbon Dioxide BUN Creatinine Glucose POC Glucose 69 L Calcium Phosphorus Magnesium AST Alkaline Phosphatase C-Reactive Protein Total Protein Albumin Lipase Vitamin B12 TSH Urine WBC (Auto) Urine Chloride Urine Total Protein Vancomycin Trough Crossmatch 10/18/16 10/18/16 10/18/16 06:46 06:46 06:46 WBC 20.5 H RBC 2.62 L Hgb 8.4 L Hct 26.0 L MCV 100 H RDW Plt Count Lymph % (Auto) [place] % (Auto) [place] # Seg Neutrophils % Seg Neuts % (Manual) 75.0 H Lymphocytes % (Manual) 9.0 L Monocytes % (Manual) 14.0 H Basophils % (Manual) Nucleated RBC % Seg Neutrophils # Seg Neutrophils # Man 15.4 H Lymphocytes # (Manual) Monocytes # (Manual) 2.9 H Eosinophils # (Manual) Basophils # (Manual) PT INR APTT Heparin Anti-Xa Level POC ABG pH POC ABG pCO2 POC ABG pO2 Sodium Potassium Chloride 110.6 H Carbon Dioxide BUN Creatinine 1.3 H Glucose 153 H POC Glucose Calcium 8.0 L Phosphorus Magnesium 1.6 L AST Alkaline Phosphatase C-Reactive Protein Total Protein Albumin Lipase Vitamin B12 TSH Urine WBC (Auto) Urine Chloride Urine Total Protein Vancomycin Trough Crossmatch 10/18/16 10/18/16 10/18/16 07:30 11:37 17:51 WBC RBC Hgb Hct MCV RDW Plt Count Lymph % (Auto) [place] % (Auto) [place] # Seg Neutrophils % Seg Neuts % (Manual) Lymphocytes % (Manual) Monocytes % (Manual) Basophils % (Manual) Nucleated RBC % Seg Neutrophils # Seg Neutrophils # Man Lymphocytes # (Manual) Monocytes # (Manual) Eosinophils # (Manual) Basophils # (Manual) PT INR APTT Heparin Anti-Xa Level POC ABG pH POC ABG pCO2 POC ABG pO2 Sodium Potassium Chloride Carbon Dioxide BUN Creatinine Glucose POC Glucose 162 H 156 H 164 H Calcium Phosphorus Magnesium AST Alkaline Phosphatase C-Reactive Protein Total Protein Albumin Lipase Vitamin B12 TSH Urine WBC (Auto) Urine Chloride Urine Total Protein Vancomycin Trough Crossmatch 10/18/16 10/19/16 10/19/16 23:44 03:59 05:13 WBC 18.2 H RBC 2.76 L Hgb 9.0 L Hct 27.7 L MCV 100 H RDW Plt Count Lymph % (Auto) [place] % (Auto) [place] # Seg Neutrophils % Seg Neuts % (Manual) 76.0 H Lymphocytes % (Manual) 10.0 L Monocytes % (Manual) Basophils % (Manual) Nucleated RBC % Seg Neutrophils # Seg Neutrophils # Man 13.8 H Lymphocytes # (Manual) Monocytes # (Manual) Eosinophils # (Manual) Basophils # (Manual) PT INR APTT Heparin Anti-Xa Level POC ABG pH POC ABG pCO2 32.2 L POC ABG pO2 128 H Sodium Potassium Chloride Carbon Dioxide BUN Creatinine Glucose POC Glucose 278 H Calcium Phosphorus Magnesium AST Alkaline Phosphatase C-Reactive Protein Total Protein Albumin Lipase Vitamin B12 TSH Urine WBC (Auto) Urine Chloride Urine Total Protein Vancomycin Trough Crossmatch 10/19/16 10/19/16 10/19/16 06:01 06:30 12:20 WBC RBC Hgb Hct MCV RDW Plt Count Lymph % (Auto) [place] % (Auto) [place] # Seg Neutrophils % Seg Neuts % (Manual) Lymphocytes % (Manual) Monocytes % (Manual) Basophils % (Manual) Nucleated RBC % Seg Neutrophils # Seg Neutrophils # Man Lymphocytes # (Manual) Monocytes # (Manual) Eosinophils # (Manual) Basophils # (Manual) PT INR APTT Heparin Anti-Xa Level POC ABG pH POC ABG pCO2 POC ABG pO2 Sodium Potassium Chloride Carbon Dioxide 18 L BUN Creatinine 1.3 H Glucose 262 H POC Glucose 261 H 349 H Calcium 7.7 L Phosphorus 4.8 H D Magnesium AST Alkaline Phosphatase C-Reactive Protein Total Protein Albumin Lipase Vitamin B12 TSH Urine WBC (Auto) Urine Chloride Urine Total Protein Vancomycin Trough Crossmatch 10/19/16 10/20/16 10/20/16 16:48 00:17 05:20 WBC 22.5 H RBC 2.80 L Hgb 8.9 L Hct 28.3 L MCV 101 H RDW Plt Count Lymph % (Auto) [place] % (Auto) [place] # Seg Neutrophils % Seg Neuts % (Manual) Lymphocytes % (Manual) 10.0 L Monocytes % (Manual) Basophils % (Manual) Nucleated RBC % Seg Neutrophils # Seg Neutrophils # Man 13.3 H Lymphocytes # (Manual) Monocytes # (Manual) 1.1 H Eosinophils # (Manual) 0.7 H Basophils # (Manual) PT INR APTT Heparin Anti-Xa Level POC ABG pH POC ABG pCO2 POC ABG pO2 Sodium Potassium Chloride Carbon Dioxide BUN Creatinine Glucose POC Glucose 248 H 346 H Calcium Phosphorus Magnesium AST Alkaline Phosphatase C-Reactive Protein Total Protein Albumin Lipase Vitamin B12 TSH Urine WBC (Auto) Urine Chloride Urine Total Protein Vancomycin Trough Crossmatch 10/20/16 10/20/16 10/20/16 05:20 05:20 06:05 WBC RBC Hgb Hct MCV RDW Plt Count Lymph % (Auto) [place] % (Auto) [place] # Seg Neutrophils % Seg Neuts % (Manual) Lymphocytes % (Manual) Monocytes % (Manual) Basophils % (Manual) Nucleated RBC % Seg Neutrophils # Seg Neutrophils # Man Lymphocytes # (Manual) Monocytes # (Manual) Eosinophils # (Manual) Basophils # (Manual) PT INR APTT Heparin Anti-Xa Level 0.20 L POC ABG pH POC ABG pCO2 POC ABG pO2 Sodium Potassium Chloride Carbon Dioxide BUN 20 H Creatinine Glucose 374 H POC Glucose 337 H Calcium 8.3 L Phosphorus Magnesium AST Alkaline Phosphatase C-Reactive Protein Total Protein Albumin Lipase Vitamin B12 TSH Urine WBC (Auto) Urine Chloride Urine Total Protein Vancomycin Trough Crossmatch 10/20/16 10/20/1610/20/17 11:49 13:59 17:56 WBC RBC Hgb Hct MCV RDW Plt Count Lymph % (Auto) [place] % (Auto) [place] # Seg Neutrophils % Seg Neuts % (Manual) Lymphocytes % (Manual) Monocytes % (Manual) Basophils % (Manual) Nucleated RBC % Seg Neutrophils # Seg Neutrophils # Man Lymphocytes # (Manual) Monocytes # (Manual) Eosinophils # (Manual) Basophils # (Manual) PT INR APTT Heparin Anti-Xa Level 2.00 H POC ABG pH POC ABG pCO2 POC ABG pO2 Sodium Potassium Chloride Carbon Dioxide BUN Creatinine Glucose POC Glucose 305 H 362 H Calcium Phosphorus Magnesium AST Alkaline Phosphatase C-Reactive Protein Total Protein Albumin Lipase Vitamin B12 TSH Urine WBC (Auto) Urine Chloride Urine Total Protein Vancomycin Trough Crossmatch 10/20/16 10/21/16 10/21/16 23:52 05:00 05:49 WBC 22.9 H RBC 2.49 L Hgb 7.7 L Hct 25.6 L MCV 103 H RDW Plt Count Lymph % (Auto) [place] % (Auto) [place] # Seg Neutrophils % Seg Neuts % (Manual) 94.0 H Lymphocytes % (Manual) 1.0 L Monocytes % (Manual) Basophils % (Manual) Nucleated RBC % Seg Neutrophils # Seg Neutrophils # Man 21.5 H Lymphocytes # (Manual) 0.2 L Monocytes # (Manual) 1.1 H Eosinophils # (Manual) Basophils # (Manual) PT INR APTT Heparin Anti-Xa Level POC ABG pH POC ABG pCO2 POC ABG pO2 Sodium Potassium Chloride Carbon Dioxide BUN Creatinine Glucose POC Glucose 252 H 180 H Calcium Phosphorus Magnesium AST Alkaline Phosphatase C-Reactive Protein Total Protein Albumin Lipase Vitamin B12 TSH Urine WBC (Auto) Urine Chloride Urine Total Protein Vancomycin Trough Crossmatch 10/21/16 10/21/16 10/21/16 11:47 11:49 14:10 WBC RBC Hgb Hct MCV RDW Plt Count Lymph % (Auto) [place] % (Auto) [place] # Seg Neutrophils % Seg Neuts % (Manual) Lymphocytes % (Manual) Monocytes % (Manual) Basophils % (Manual) Nucleated RBC % Seg Neutrophils # Seg Neutrophils # Man Lymphocytes # (Manual) Monocytes # (Manual) Eosinophils # (Manual) Basophils # (Manual) PT INR APTT Heparin Anti-Xa Level POC ABG pH POC ABG pCO2 POC ABG pO2 Sodium Potassium Chloride Carbon Dioxide BUN Creatinine Glucose POC Glucose 50 L 56 L 140 H Calcium Phosphorus Magnesium AST Alkaline Phosphatase C-Reactive Protein Total Protein Albumin Lipase Vitamin B12 TSH Urine WBC (Auto) Urine Chloride Urine Total Protein Vancomycin Trough Crossmatch 10/21/16 10/21/16 10/22/16 18:24 Unknown 00:07 WBC RBC Hgb Hct MCV RDW Plt Count Lymph % (Auto) [place] % (Auto) [place] # Seg Neutrophils % Seg Neuts % (Manual) Lymphocytes % (Manual) Monocytes % (Manual) Basophils % (Manual) Nucleated RBC % Seg Neutrophils # Seg Neutrophils # Man Lymphocytes # (Manual) Monocytes # (Manual) Eosinophils # (Manual) Basophils # (Manual) PT INR APTT Heparin Anti-Xa Level POC ABG pH POC ABG pCO2 POC ABG pO2 Sodium 150 H Potassium 3.1 L Chloride 112.4 H Carbon Dioxide BUN 25 H Creatinine 1.4 H Glucose POC Glucose 175 H 218 H Calcium 8.0 L Phosphorus Magnesium AST Alkaline Phosphatase C-Reactive Protein Total Protein Albumin Lipase Vitamin B12 TSH Urine WBC (Auto) Urine Chloride Urine Total Protein Vancomycin Trough Crossmatch 10/22/16 10/22/16 10/22/16 04:20 04:20 10:25 WBC 20.8 H RBC 2.37 L Hgb 7.5 L Hct 23.9 L MCV 101 H RDW Plt Count Lymph % (Auto) [place] % (Auto) [place] # Seg Neutrophils % Seg Neuts % (Manual) 89.0 H Lymphocytes % (Manual) 7.0 L Monocytes % (Manual) Basophils % (Manual) Nucleated RBC % Seg Neutrophils # Seg Neutrophils # Man 18.5 H Lymphocytes # (Manual) Monocytes # (Manual) Eosinophils # (Manual) Basophils # (Manual) 0.2 H PT INR APTT Heparin Anti-Xa Level POC ABG pH POC ABG pCO2 POC ABG pO2 Sodium 148 H Potassium 2.9 L* Chloride 109.4 H Carbon Dioxide BUN 26 H Creatinine Glucose 140 H POC Glucose Calcium 7.5 L Phosphorus Magnesium AST Alkaline Phosphatase C-Reactive Protein Total Protein Albumin Lipase Vitamin B12 976.8 H TSH Urine WBC (Auto) Urine Chloride Urine Total Protein Vancomycin Trough Crossmatch 10/22/16 10/22/16 10/22/16 10:25 14:50 18:16 WBC RBC Hgb Hct MCV RDW Plt Count Lymph % (Auto) [place] % (Auto) [place] # Seg Neutrophils % Seg Neuts % (Manual) Lymphocytes % (Manual) Monocytes % (Manual) Basophils % (Manual) Nucleated RBC % Seg Neutrophils # Seg Neutrophils # Man Lymphocytes # (Manual) Monocytes # (Manual) Eosinophils # (Manual) Basophils # (Manual) PT INR APTT Heparin Anti-Xa Level POC ABG pH POC ABG pCO2 POC ABG pO2 Sodium Potassium Chloride Carbon Dioxide BUN Creatinine Glucose POC Glucose 193 H Calcium Phosphorus Magnesium AST Alkaline Phosphatase C-Reactive Protein Total Protein Albumin Lipase Vitamin B12 TSH 0.143 L 0.162 L Urine WBC (Auto) Urine Chloride Urine Total Protein Vancomycin Trough Crossmatch 10/22/16 10/22/16 10/22/16 20:00 20:00 20:00 WBC 24.1 H RBC 2.58 L Hgb 8.2 L Hct 26.4 L MCV 102 H RDW Plt Count Lymph % (Auto) [place] % (Auto) [place] # Seg Neutrophils % Seg Neuts % (Manual) 74.0 H Lymphocytes % (Manual) 7.0 L Monocytes % (Manual) Basophils % (Manual) Nucleated RBC % Seg Neutrophils # Seg Neutrophils # Man 17.8 H Lymphocytes # (Manual) Monocytes # (Manual) Eosinophils # (Manual) Basophils # (Manual) PT INR APTT Heparin Anti-Xa Level 1.92 H POC ABG pH POC ABG pCO2 POC ABG pO2 Sodium Potassium Chloride Carbon Dioxide BUN Creatinine Glucose POC Glucose Calcium Phosphorus Magnesium AST Alkaline Phosphatase C-Reactive Protein Total Protein Albumin Lipase Vitamin B12 TSH Urine WBC (Auto) Urine Chloride Urine Total Protein Vancomycin Trough Crossmatch See Detail 10/23/16 10/23/16 10/23/16 00:21 06:09 12:07 WBC RBC Hgb Hct MCV RDW Plt Count Lymph % (Auto) [place] % (Auto) [place] # Seg Neutrophils % Seg Neuts % (Manual) Lymphocytes % (Manual) Monocytes % (Manual) Basophils % (Manual) Nucleated RBC % Seg Neutrophils # Seg Neutrophils # Man Lymphocytes # (Manual) Monocytes # (Manual) Eosinophils # (Manual) Basophils # (Manual) PT INR APTT Heparin Anti-Xa Level POC ABG pH POC ABG pCO2 POC ABG pO2 Sodium Potassium Chloride Carbon Dioxide BUN Creatinine Glucose POC Glucose 283 H 241 H 340 H Calcium Phosphorus Magnesium AST Alkaline Phosphatase C-Reactive Protein Total Protein Albumin Lipase Vitamin B12 TSH Urine WBC (Auto) Urine Chloride Urine Total Protein Vancomycin Trough Crossmatch 10/23/16 10/23/1610/23/17 14:01 16:00 17:59 WBC RBC Hgb Hct MCV RDW Plt Count Lymph % (Auto) [place] % (Auto) [place] # Seg Neutrophils % Seg Neuts % (Manual) Lymphocytes % (Manual) Monocytes % (Manual) Basophils % (Manual) Nucleated RBC % Seg Neutrophils # Seg Neutrophils # Man Lymphocytes # (Manual) Monocytes # (Manual) Eosinophils # (Manual) Basophils # (Manual) PT INR APTT Heparin Anti-Xa Level 0.19 L POC ABG pH POC ABG pCO2 32.4 L POC ABG pO2 Sodium Potassium Chloride Carbon Dioxide BUN Creatinine Glucose POC Glucose 245 H Calcium Phosphorus Magnesium AST Alkaline Phosphatase C-Reactive Protein Total Protein Albumin Lipase Vitamin B12 TSH Urine WBC (Auto) Urine Chloride Urine Total Protein Vancomycin Trough Crossmatch 10/23/16 10/23/16 10/23/16 22:55 Unknown Unknown WBC 22.6 H RBC 3.26 L Hgb Hct MCV RDW 17.1 H Plt Count Lymph % (Auto) [place] % (Auto) [place] # Seg Neutrophils % Seg Neuts % (Manual) Lymphocytes % (Manual) 11.0 L Monocytes % (Manual) Basophils % (Manual) Nucleated RBC % Seg Neutrophils # Seg Neutrophils # Man 14.0 H Lymphocytes # (Manual) Monocytes # (Manual) Eosinophils # (Manual) Basophils # (Manual) PT INR APTT Heparin Anti-Xa Level 0.17 L 0.15 L POC ABG pH POC ABG pCO2 POC ABG pO2 Sodium Potassium Chloride Carbon Dioxide BUN Creatinine Glucose POC Glucose Calcium Phosphorus Magnesium AST Alkaline Phosphatase C-Reactive Protein Total Protein Albumin Lipase Vitamin B12 TSH Urine WBC (Auto) Urine Chloride Urine Total Protein Vancomycin Trough Crossmatch 10/23/16 10/24/16 10/24/16 Unknown 00:05 05:30 WBC RBC Hgb Hct MCV RDW Plt Count Lymph % (Auto) [place] % (Auto) [place] # Seg Neutrophils % Seg Neuts % (Manual) Lymphocytes % (Manual) Monocytes % (Manual) Basophils % (Manual) Nucleated RBC % Seg Neutrophils # Seg Neutrophils # Man Lymphocytes # (Manual) Monocytes # (Manual) Eosinophils # (Manual) Basophils # (Manual) PT INR APTT Heparin Anti-Xa Level 0.13 L POC ABG pH POC ABG pCO2 POC ABG pO2 Sodium Potassium Chloride 111.2 H Carbon Dioxide 20 L BUN 25 H Creatinine Glucose 227 H POC Glucose 118 H Calcium 7.1 L Phosphorus Magnesium AST Alkaline Phosphatase C-Reactive Protein Total Protein Albumin Lipase Vitamin B12 TSH Urine WBC (Auto) Urine Chloride Urine Total Protein Vancomycin Trough Crossmatch 10/24/16 10/24/16 10/24/16 11:00 11:00 12:06 WBC 17.6 H RBC 2.92 L Hgb 9.2 L Hct 28.3 L MCV RDW 16.9 H Plt Count Lymph % (Auto) [place] % (Auto) [place] # Seg Neutrophils % Seg Neuts % (Manual) Lymphocytes % (Manual) Monocytes % (Manual) Basophils % (Manual) Nucleated RBC % Seg Neutrophils # Seg Neutrophils # Man Lymphocytes # (Manual) Monocytes # (Manual) Eosinophils # (Manual) Basophils # (Manual) PT INR APTT Heparin Anti-Xa Level 0.27 L POC ABG pH POC ABG pCO2 POC ABG pO2 Sodium Potassium Chloride Carbon Dioxide BUN Creatinine Glucose POC Glucose 166 H Calcium Phosphorus Magnesium AST Alkaline Phosphatase C-Reactive Protein Total Protein Albumin Lipase Vitamin B12 TSH Urine WBC (Auto) Urine Chloride Urine Total Protein Vancomycin Trough Crossmatch 10/24/16 10/25/16 10/25/16 12:27 00:49 03:30 WBC RBC Hgb 8.8 L Hct 28.1 L MCV RDW Plt Count Lymph % (Auto) [place] % (Auto) [place] # Seg Neutrophils % Seg Neuts % (Manual) Lymphocytes % (Manual) Monocytes % (Manual) Basophils % (Manual) Nucleated RBC % Seg Neutrophils # Seg Neutrophils # Man Lymphocytes # (Manual) Monocytes # (Manual) Eosinophils # (Manual) Basophils # (Manual) PT INR APTT Heparin Anti-Xa Level POC ABG pH POC ABG pCO2 33.9 L POC ABG pO2 Sodium Potassium Chloride Carbon Dioxide BUN Creatinine Glucose POC Glucose 121 H Calcium Phosphorus Magnesium AST Alkaline Phosphatase C-Reactive Protein Total Protein Albumin Lipase Vitamin B12 TSH Urine WBC (Auto) Urine Chloride Urine Total Protein Vancomycin Trough Crossmatch 10/25/16 10/25/16 10/25/16 09:49 12:10 19:25 WBC 21.1 H RBC 3.02 L Hgb 9.3 L Hct 28.9 L MCV RDW 16.3 H Plt Count Lymph % (Auto) [place] % (Auto) [place] # Seg Neutrophils % Seg Neuts % (Manual) 81.0 H Lymphocytes % (Manual) 9.0 L Monocytes % (Manual) Basophils % (Manual) Nucleated RBC % Seg Neutrophils # Seg Neutrophils # Man 17.1 H Lymphocytes # (Manual) Monocytes # (Manual) Eosinophils # (Manual) Basophils # (Manual) PT INR APTT Heparin Anti-Xa Level POC ABG pH POC ABG pCO2 POC ABG pO2 Sodium Potassium Chloride Carbon Dioxide BUN Creatinine Glucose POC Glucose 158 H 151 H Calcium Phosphorus Magnesium AST Alkaline Phosphatase C-Reactive Protein Total Protein Albumin Lipase Vitamin B12 TSH Urine WBC (Auto) Urine Chloride Urine Total Protein Vancomycin Trough Crossmatch 10/26/16 10/26/16 10/26/16 00:20 01:09 05:02 WBC 22.2 H RBC 2.89 L Hgb 8.7 L Hct 27.8 L MCV RDW 16.4 H Plt Count Lymph % (Auto) [place] % (Auto) [place] # Seg Neutrophils % Seg Neuts % (Manual) Lymphocytes % (Manual) Monocytes % (Manual) Basophils % (Manual) Nucleated RBC % Seg Neutrophils # Seg Neutrophils # Man Lymphocytes # (Manual) Monocytes # (Manual) Eosinophils # (Manual) Basophils # (Manual) PT INR APTT Heparin Anti-Xa Level POC ABG pH POC ABG pCO2 POC ABG pO2 Sodium Potassium Chloride Carbon Dioxide BUN Creatinine Glucose POC Glucose 44 L 112 H Calcium Phosphorus Magnesium AST Alkaline Phosphatase C-Reactive Protein Total Protein Albumin Lipase Vitamin B12 TSH Urine WBC (Auto) Urine Chloride Urine Total Protein Vancomycin Trough Crossmatch 10/26/16 10/26/16 10/26/16 05:02 12:11 12:14 WBC RBC Hgb Hct MCV RDW Plt Count Lymph % (Auto) [place] % (Auto) [place] # Seg Neutrophils % Seg Neuts % (Manual) Lymphocytes % (Manual) Monocytes % (Manual) Basophils % (Manual) Nucleated RBC % Seg Neutrophils # Seg Neutrophils # Man Lymphocytes # (Manual) Monocytes # (Manual) Eosinophils # (Manual) Basophils # (Manual) PT INR APTT Heparin Anti-Xa Level POC ABG pH POC ABG pCO2 32.0 L POC ABG pO2 33 L Sodium Potassium 3.2 L D Chloride Carbon Dioxide 20 L BUN 24 H Creatinine Glucose 104 H POC Glucose 194 H Calcium 7.7 L Phosphorus Magnesium AST Alkaline Phosphatase C-Reactive Protein Total Protein Albumin Lipase Vitamin B12 TSH Urine WBC (Auto) Urine Chloride Urine Total Protein Vancomycin Trough Crossmatch 10/26/16 10/26/16 10/27/16 15:28 17:23 00:04 WBC RBC Hgb Hct MCV RDW Plt Count Lymph % (Auto) [place] % (Auto) [place] # Seg Neutrophils % Seg Neuts % (Manual) Lymphocytes % (Manual) Monocytes % (Manual) Basophils % (Manual) Nucleated RBC % Seg Neutrophils # Seg Neutrophils # Man Lymphocytes # (Manual) Monocytes # (Manual) Eosinophils # (Manual) Basophils # (Manual) PT INR APTT Heparin Anti-Xa Level POC ABG pH POC ABG pCO2 33.7 L POC ABG pO2 Sodium Potassium Chloride Carbon Dioxide BUN Creatinine Glucose POC Glucose 181 H 230 H Calcium Phosphorus Magnesium AST Alkaline Phosphatase C-Reactive Protein Total Protein Albumin Lipase Vitamin B12 TSH Urine WBC (Auto) Urine Chloride Urine Total Protein Vancomycin Trough Crossmatch 10/27/16 10/27/16 10/27/16 05:15 05:15 05:38 WBC 25.5 H RBC 3.07 L Hgb 9.4 L Hct 30.1 L MCV 98 H RDW 16.4 H Plt Count 527 H Lymph % (Auto) [place] % (Auto) [place] # Seg Neutrophils % Seg Neuts % (Manual) Lymphocytes % (Manual) Monocytes % (Manual) Basophils % (Manual) Nucleated RBC % Seg Neutrophils # Seg Neutrophils # Man Lymphocytes # (Manual) Monocytes # (Manual) Eosinophils # (Manual) Basophils # (Manual) PT INR APTT Heparin Anti-Xa Level POC ABG pH POC ABG pCO2 POC ABG pO2 Sodium Potassium Chloride Carbon Dioxide 19 L BUN 23 H Creatinine Glucose 160 H POC Glucose 168 H Calcium 8.0 L Phosphorus Magnesium AST Alkaline Phosphatase C-Reactive Protein Total Protein Albumin Lipase Vitamin B12 TSH Urine WBC (Auto) Urine Chloride Urine Total Protein Vancomycin Trough Crossmatch 10/27/16 10/27/16 10/27/16 11:59 18:35 23:48 WBC RBC Hgb Hct MCV RDW Plt Count Lymph % (Auto) [place] % (Auto) [place] # Seg Neutrophils % Seg Neuts % (Manual) Lymphocytes % (Manual) Monocytes % (Manual) Basophils % (Manual) Nucleated RBC % Seg Neutrophils # Seg Neutrophils # Man Lymphocytes # (Manual) Monocytes # (Manual) Eosinophils # (Manual) Basophils # (Manual) PT INR APTT Heparin Anti-Xa Level POC ABG pH POC ABG pCO2 POC ABG pO2 Sodium Potassium Chloride Carbon Dioxide BUN Creatinine Glucose POC Glucose 197 H 318 H 316 H Calcium Phosphorus Magnesium AST Alkaline Phosphatase C-Reactive Protein Total Protein Albumin Lipase Vitamin B12 TSH Urine WBC (Auto) Urine Chloride Urine Total Protein Vancomycin Trough Crossmatch 10/28/16 10/28/16 10/28/16 03:13 04:10 04:10 WBC 18.8 H RBC 2.64 L Hgb 8.1 L Hct 26.1 L MCV 99 H RDW 16.2 H Plt Count 544 H Lymph % (Auto) [place] % (Auto) [place] # Seg Neutrophils % Seg Neuts % (Manual) Lymphocytes % (Manual) Monocytes % (Manual) Basophils % (Manual) Nucleated RBC % Seg Neutrophils # Seg Neutrophils # Man Lymphocytes # (Manual) Monocytes # (Manual) Eosinophils # (Manual) Basophils # (Manual) PT INR APTT Heparin Anti-Xa Level POC ABG pH POC ABG pCO2 POC ABG pO2 Sodium Potassium Chloride Carbon Dioxide 21 L BUN 24 H Creatinine Glucose 302 H POC Glucose 304 H Calcium 7.7 L Phosphorus Magnesium AST Alkaline Phosphatase C-Reactive Protein Total Protein Albumin Lipase Vitamin B12 TSH Urine WBC (Auto) Urine Chloride Urine Total Protein Vancomycin Trough Crossmatch 10/28/16 10/28/16 10/28/16 04:10 12:36 18:27 WBC RBC Hgb Hct MCV RDW Plt Count Lymph % (Auto) [place] % (Auto) [place] # Seg Neutrophils % Seg Neuts % (Manual) Lymphocytes % (Manual) Monocytes % (Manual) Basophils % (Manual) Nucleated RBC % Seg Neutrophils # Seg Neutrophils # Man Lymphocytes # (Manual) Monocytes # (Manual) Eosinophils # (Manual) Basophils # (Manual) PT INR APTT Heparin Anti-Xa Level 0.20 L POC ABG pH POC ABG pCO2 POC ABG pO2 Sodium Potassium Chloride Carbon Dioxide BUN Creatinine Glucose POC Glucose 205 H 339 H Calcium Phosphorus Magnesium AST Alkaline Phosphatase C-Reactive Protein Total Protein Albumin Lipase Vitamin B12 TSH Urine WBC (Auto) Urine Chloride Urine Total Protein Vancomycin Trough Crossmatch 10/29/16 10/29/16 10/29/16 01:05 06:19 09:30 WBC 20.3 H RBC 2.80 L Hgb 8.5 L Hct 26.7 L MCV RDW 15.4 H Plt Count 571 H Lymph % (Auto) [place] % (Auto) [place] # Seg Neutrophils % Seg Neuts % (Manual) 75.0 H Lymphocytes % (Manual) 4.0 L Monocytes % (Manual) Basophils % (Manual) Nucleated RBC % Seg Neutrophils # Seg Neutrophils # Man 15.2 H Lymphocytes # (Manual) 0.8 L Monocytes # (Manual) Eosinophils # (Manual) Basophils # (Manual) PT INR APTT Heparin Anti-Xa Level POC ABG pH POC ABG pCO2 POC ABG pO2 Sodium Potassium Chloride Carbon Dioxide BUN Creatinine Glucose POC Glucose 275 H 179 H Calcium Phosphorus Magnesium AST Alkaline Phosphatase C-Reactive Protein Total Protein Albumin Lipase Vitamin B12 TSH Urine WBC (Auto) Urine Chloride Urine Total Protein Vancomycin Trough Crossmatch 10/29/16 10/29/16 10/29/16 11:46 15:18 17:55 WBC RBC Hgb Hct MCV RDW Plt Count Lymph % (Auto) [place] % (Auto) [place] # Seg Neutrophils % Seg Neuts % (Manual) Lymphocytes % (Manual) Monocytes % (Manual) Basophils % (Manual) Nucleated RBC % Seg Neutrophils # Seg Neutrophils # Man Lymphocytes # (Manual) Monocytes # (Manual) Eosinophils # (Manual) Basophils # (Manual) PT INR APTT Heparin Anti-Xa Level 1.15 H POC ABG pH POC ABG pCO2 POC ABG pO2 Sodium Potassium Chloride Carbon Dioxide BUN Creatinine Glucose POC Glucose 122 H 255 H Calcium Phosphorus Magnesium AST Alkaline Phosphatase C-Reactive Protein Total Protein Albumin Lipase Vitamin B12 TSH Urine WBC (Auto) Urine Chloride Urine Total Protein Vancomycin Trough Crossmatch 10/30/16 10/30/16 10/30/16 00:10 05:30 05:30 WBC 19.8 H RBC 2.51 L Hgb 7.7 L Hct 24.1 L MCV RDW 15.5 H Plt Count 534 H Lymph % (Auto) [place] % (Auto) [place] # Seg Neutrophils % Seg Neuts % (Manual) Lymphocytes % (Manual) Monocytes % (Manual) Basophils % (Manual) Nucleated RBC % Seg Neutrophils # Seg Neutrophils # Man Lymphocytes # (Manual) Monocytes # (Manual) Eosinophils # (Manual) Basophils # (Manual) PT INR APTT Heparin Anti-Xa Level POC ABG pH POC ABG pCO2 POC ABG pO2 Sodium Potassium Chloride Carbon Dioxide BUN Creatinine Glucose 211 H POC Glucose 202 H Calcium 7.4 L Phosphorus Magnesium AST Alkaline Phosphatase C-Reactive Protein Total Protein Albumin Lipase Vitamin B12 TSH Urine WBC (Auto) Urine Chloride Urine Total Protein Vancomycin Trough Crossmatch 10/30/16 10/30/16 10/30/16 06:32 12:51 17:47 WBC RBC Hgb Hct MCV RDW Plt Count Lymph % (Auto) [place] % (Auto) [place] # Seg Neutrophils % Seg Neuts % (Manual) Lymphocytes % (Manual) Monocytes % (Manual) Basophils % (Manual) Nucleated RBC % Seg Neutrophils # Seg Neutrophils # Man Lymphocytes # (Manual) Monocytes # (Manual) Eosinophils # (Manual) Basophils # (Manual) PT INR APTT Heparin Anti-Xa Level POC ABG pH POC ABG pCO2 POC ABG pO2 Sodium Potassium Chloride Carbon Dioxide BUN Creatinine Glucose POC Glucose 207 H 218 H 169 H Calcium Phosphorus Magnesium AST Alkaline Phosphatase C-Reactive Protein Total Protein Albumin Lipase Vitamin B12 TSH Urine WBC (Auto) Urine Chloride Urine Total Protein Vancomycin Trough Crossmatch 10/30/16 10/31/16 10/31/16 23:59 05:25 11:21 WBC RBC Hgb Hct MCV RDW Plt Count Lymph % (Auto) [place] % (Auto) [place] # Seg Neutrophils % Seg Neuts % (Manual) Lymphocytes % (Manual) Monocytes % (Manual) Basophils % (Manual) Nucleated RBC % Seg Neutrophils # Seg Neutrophils # Man Lymphocytes # (Manual) Monocytes # (Manual) Eosinophils # (Manual) Basophils # (Manual) PT INR APTT Heparin Anti-Xa Level POC ABG pH POC ABG pCO2 POC ABG pO2 Sodium Potassium Chloride Carbon Dioxide BUN Creatinine Glucose POC Glucose 138 H 127 H 132 H Calcium Phosphorus Magnesium AST Alkaline Phosphatase C-Reactive Protein Total Protein Albumin Lipase Vitamin B12 TSH Urine WBC (Auto) Urine Chloride Urine Total Protein Vancomycin Trough Crossmatch 10/31/16 10/31/16 11/01/16 17:07 23:54 05:47 WBC RBC Hgb Hct MCV RDW Plt Count Lymph % (Auto) [place] % (Auto) [place] # Seg Neutrophils % Seg Neuts % (Manual) Lymphocytes % (Manual) Monocytes % (Manual) Basophils % (Manual) Nucleated RBC % Seg Neutrophils # Seg Neutrophils # Man Lymphocytes # (Manual) Monocytes # (Manual) Eosinophils # (Manual) Basophils # (Manual) PT INR APTT Heparin Anti-Xa Level POC ABG pH POC ABG pCO2 POC ABG pO2 Sodium Potassium Chloride Carbon Dioxide BUN Creatinine Glucose POC Glucose 138 H 153 H 150 H Calcium Phosphorus Magnesium AST Alkaline Phosphatase C-Reactive Protein Total Protein Albumin Lipase Vitamin B12 TSH Urine WBC (Auto) Urine Chloride Urine Total Protein Vancomycin Trough Crossmatch 11/01/16 11/01/16 11/01/16 06:33 06:33 12:16 WBC 19.2 H RBC 2.51 L Hgb 7.9 L Hct 24.8 L MCV 99 H D RDW 16.1 H Plt Count 569 H Lymph % (Auto) [place] % (Auto) [place] # Seg Neutrophils % Seg Neuts % (Manual) Lymphocytes % (Manual) Monocytes % (Manual) Basophils % (Manual) Nucleated RBC % Seg Neutrophils # Seg Neutrophils # Man Lymphocytes # (Manual) Monocytes # (Manual) Eosinophils # (Manual) Basophils # (Manual) PT INR APTT Heparin Anti-Xa Level POC ABG pH POC ABG pCO2 POC ABG pO2 Sodium Potassium 3.5 L Chloride Carbon Dioxide 21 L BUN Creatinine Glucose 137 H POC Glucose 125 H Calcium 7.7 L Phosphorus Magnesium AST Alkaline Phosphatase 148 H C-Reactive Protein Total Protein 6.2 L Albumin 2.0 L Lipase Vitamin B12 TSH Urine WBC (Auto) Urine Chloride Urine Total Protein Vancomycin Trough Crossmatch 11/01/16 11/02/16 11/02/16 17:37 00:05 04:15 WBC RBC Hgb Hct MCV RDW Plt Count Lymph % (Auto) [place] % (Auto) [place] # Seg Neutrophils % Seg Neuts % (Manual) Lymphocytes % (Manual) Monocytes % (Manual) Basophils % (Manual) Nucleated RBC % Seg Neutrophils # Seg Neutrophils # Man Lymphocytes # (Manual) Monocytes # (Manual) Eosinophils # (Manual) Basophils # (Manual) PT INR APTT Heparin Anti-Xa Level < 0.10 L POC ABG pH POC ABG pCO2 POC ABG pO2 Sodium Potassium 3.2 L Chloride Carbon Dioxide BUN 6 L Creatinine Glucose 135 H POC Glucose 164 H Calcium 7.5 L Phosphorus Magnesium AST Alkaline Phosphatase 132 H C-Reactive Protein Total Protein 6.2 L Albumin 1.8 L Lipase Vitamin B12 TSH Urine WBC (Auto) Urine Chloride Urine Total Protein Vancomycin Trough Crossmatch 11/02/16 11/02/16 11/02/16 04:15 05:54 12:15 WBC 17.7 H RBC 2.43 L Hgb 7.6 L Hct 23.5 L MCV RDW 15.9 H Plt Count 502 H Lymph % (Auto) [place] % (Auto) [place] # Seg Neutrophils % Seg Neuts % (Manual) 84.0 H Lymphocytes % (Manual) 11.0 L Monocytes % (Manual) Basophils % (Manual) Nucleated RBC % 1.0 H Seg Neutrophils # Seg Neutrophils # Man 14.9 H Lymphocytes # (Manual) Monocytes # (Manual) Eosinophils # (Manual) Basophils # (Manual) PT INR APTT Heparin Anti-Xa Level POC ABG pH POC ABG pCO2 POC ABG pO2 Sodium Potassium Chloride Carbon Dioxide BUN Creatinine Glucose POC Glucose 152 H 137 H Calcium Phosphorus Magnesium AST Alkaline Phosphatase C-Reactive Protein Total Protein Albumin Lipase Vitamin B12 TSH Urine WBC (Auto) Urine Chloride Urine Total Protein Vancomycin Trough Crossmatch 11/02/16 11/03/16 11/03/16 17:00 00:05 00:05 WBC RBC Hgb Hct MCV RDW Plt Count Lymph % (Auto) [place] % (Auto) [place] # Seg Neutrophils % Seg Neuts % (Manual) Lymphocytes % (Manual) Monocytes % (Manual) Basophils % (Manual) Nucleated RBC % Seg Neutrophils # Seg Neutrophils # Man Lymphocytes # (Manual) Monocytes # (Manual) Eosinophils # (Manual) Basophils # (Manual) PT INR APTT Heparin Anti-Xa Level POC ABG pH POC ABG pCO2 POC ABG pO2 Sodium Potassium Chloride Carbon Dioxide 20 L BUN 5 L Creatinine Glucose 139 H POC Glucose 161 H Calcium 6.7 L Phosphorus Magnesium 1.2 L AST Alkaline Phosphatase C-Reactive Protein Total Protein Albumin Lipase Vitamin B12 TSH Urine WBC (Auto) Urine Chloride Urine Total Protein Vancomycin Trough Crossmatch 11/03/16 11/03/16 11/03/16 00:05 02:05 04:23 WBC 15.9 H 14.0 H RBC 1.93 L 2.38 L Hgb 5.9 L* 7.3 L Hct 18.9 L* 23.1 L MCV 98 H RDW 15.9 H 15.9 H Plt Count Lymph % (Auto) [place] % (Auto) [place] # Seg Neutrophils % Seg Neuts % (Manual) 85.0 H Lymphocytes % (Manual) 4.0 L Monocytes % (Manual) Basophils % (Manual) Nucleated RBC % Seg Neutrophils # Seg Neutrophils # Man 13.5 H Lymphocytes # (Manual) 0.6 L Monocytes # (Manual) Eosinophils # (Manual) Basophils # (Manual) PT INR APTT Heparin Anti-Xa Level POC ABG pH POC ABG pCO2 POC ABG pO2 Sodium Potassium Chloride Carbon Dioxide BUN 5 L Creatinine Glucose 127 H POC Glucose Calcium 7.2 L Phosphorus Magnesium AST Alkaline Phosphatase C-Reactive Protein Total Protein 5.8 L Albumin 1.5 L Lipase Vitamin B12 TSH Urine WBC (Auto) Urine Chloride Urine Total Protein Vancomycin Trough Crossmatch 11/03/16 11/03/16 11/03/16 09:14 09:27 11:54 WBC RBC Hgb Hct MCV RDW Plt Count Lymph % (Auto) [place] % (Auto) [place] # Seg Neutrophils % Seg Neuts % (Manual) Lymphocytes % (Manual) Monocytes % (Manual) Basophils % (Manual) Nucleated RBC % Seg Neutrophils # Seg Neutrophils # Man Lymphocytes # (Manual) Monocytes # (Manual) Eosinophils # (Manual) Basophils # (Manual) PT INR APTT Heparin Anti-Xa Level 0.11 L POC ABG pH POC ABG pCO2 POC ABG pO2 Sodium Potassium Chloride Carbon Dioxide BUN 5 L Creatinine Glucose 111 H POC Glucose 139 H Calcium 6.7 L Phosphorus Magnesium AST Alkaline Phosphatase C-Reactive Protein Total Protein Albumin Lipase Vitamin B12 TSH Urine WBC (Auto) Urine Chloride Urine Total Protein Vancomycin Trough Crossmatch 11/03/16 11/03/16 11/03/16 16:26 18:01 18:01 WBC RBC Hgb Hct MCV RDW Plt Count Lymph % (Auto) [place] % (Auto) [place] # Seg Neutrophils % Seg Neuts % (Manual) Lymphocytes % (Manual) Monocytes % (Manual) Basophils % (Manual) Nucleated RBC % Seg Neutrophils # Seg Neutrophils # Man Lymphocytes # (Manual) Monocytes # (Manual) Eosinophils # (Manual) Basophils # (Manual) PT INR APTT Heparin Anti-Xa Level 2.00 H POC ABG pH POC ABG pCO2 POC ABG pO2 Sodium Potassium Chloride Carbon Dioxide BUN Creatinine Glucose POC Glucose 142 H Calcium Phosphorus Magnesium AST Alkaline Phosphatase C-Reactive Protein Total Protein Albumin Lipase Vitamin B12 TSH Urine WBC (Auto) Urine Chloride Urine Total Protein Vancomycin Trough Crossmatch See Detail 11/04/16 11/04/16 11/04/16 02:15 02:15 06:35 WBC 11.8 H RBC 2.39 L Hgb 7.4 L Hct 23.1 L MCV RDW 15.9 H Plt Count Lymph % (Auto) [place] % (Auto) [place] # Seg Neutrophils % Seg Neuts % (Manual) 76.0 H Lymphocytes % (Manual) 12.0 L Monocytes % (Manual) 9.0 H Basophils % (Manual) Nucleated RBC % Seg Neutrophils # Seg Neutrophils # Man 9.0 H Lymphocytes # (Manual) Monocytes # (Manual) 1.1 H Eosinophils # (Manual) Basophils # (Manual) PT INR APTT Heparin Anti-Xa Level < 0.10 L POC ABG pH POC ABG pCO2 POC ABG pO2 Sodium Potassium Chloride Carbon Dioxide 21 L BUN 5 L Creatinine Glucose 112 H POC Glucose Calcium 6.8 L Phosphorus Magnesium AST Alkaline Phosphatase C-Reactive Protein Total Protein 5.7 L Albumin 1.7 L Lipase Vitamin B12 TSH Urine WBC (Auto) Urine Chloride Urine Total Protein Vancomycin Trough Crossmatch 11/04/16 11/04/16 11/04/16 10:51 12:58 15:04 WBC RBC Hgb Hct MCV RDW Plt Count Lymph % (Auto) [place] % (Auto) [place] # Seg Neutrophils % Seg Neuts % (Manual) Lymphocytes % (Manual) Monocytes % (Manual) Basophils % (Manual) Nucleated RBC % Seg Neutrophils # Seg Neutrophils # Man Lymphocytes # (Manual) Monocytes # (Manual) Eosinophils # (Manual) Basophils # (Manual) PT INR APTT Heparin Anti-Xa Level 1.05 H POC ABG pH POC ABG pCO2 33.7 L POC ABG pO2 60 L Sodium Potassium Chloride Carbon Dioxide BUN Creatinine Glucose POC Glucose 118 H Calcium Phosphorus Magnesium AST Alkaline Phosphatase C-Reactive Protein Total Protein Albumin Lipase Vitamin B12 TSH Urine WBC (Auto) Urine Chloride Urine Total Protein Vancomycin Trough Crossmatch 11/04/16 11/04/16 11/05/16 17:20 20:31 02:30 WBC RBC Hgb Hct MCV RDW Plt Count Lymph % (Auto) [place] % (Auto) [place] # Seg Neutrophils % Seg Neuts % (Manual) Lymphocytes % (Manual) Monocytes % (Manual) Basophils % (Manual) Nucleated RBC % Seg Neutrophils # Seg Neutrophils # Man Lymphocytes # (Manual) Monocytes # (Manual) Eosinophils # (Manual) Basophils # (Manual) PT INR APTT Heparin Anti-Xa Level POC ABG pH POC ABG pCO2 POC ABG pO2 Sodium Potassium 3.5 L Chloride Carbon Dioxide 18 L BUN 5 L Creatinine 0.6 L Glucose 110 H POC Glucose 228 H 169 H Calcium 7.1 L Phosphorus Magnesium AST Alkaline Phosphatase C-Reactive Protein Total Protein Albumin 1.9 L Lipase Vitamin B12 TSH Urine WBC (Auto) Urine Chloride Urine Total Protein Vancomycin Trough Crossmatch 11/05/16 11/05/16 11/05/16 02:30 17:52 21:07 WBC 14.1 H RBC Hgb Hct MCV RDW 16.7 H Plt Count Lymph % (Auto) [place] % (Auto) [place] # Seg Neutrophils % Seg Neuts % (Manual) 80.0 H Lymphocytes % (Manual) 6.0 L Monocytes % (Manual) 8.0 H Basophils % (Manual) Nucleated RBC % Seg Neutrophils # Seg Neutrophils # Man 11.3 H Lymphocytes # (Manual) 0.8 L Monocytes # (Manual) 1.1 H Eosinophils # (Manual) Basophils # (Manual) PT INR APTT Heparin Anti-Xa Level < 0.10 L POC ABG pH POC ABG pCO2 POC ABG pO2 Sodium Potassium Chloride Carbon Dioxide BUN Creatinine Glucose POC Glucose 174 H Calcium Phosphorus Magnesium AST Alkaline Phosphatase C-Reactive Protein Total Protein Albumin Lipase Vitamin B12 TSH Urine WBC (Auto) Urine Chloride Urine Total Protein Vancomycin Trough Crossmatch 11/05/16 11/06/16 11/06/16 23:30 05:00 05:00 WBC 15.2 H RBC 3.29 L Hgb 10.0 L Hct MCV RDW 16.9 H Plt Count Lymph % (Auto) [place] % (Auto) [place] # Seg Neutrophils % Seg Neuts % (Manual) Lymphocytes % (Manual) Monocytes % (Manual) Basophils % (Manual) Nucleated RBC % Seg Neutrophils # Seg Neutrophils # Man Lymphocytes # (Manual) Monocytes # (Manual) Eosinophils # (Manual) Basophils # (Manual) PT INR APTT Heparin Anti-Xa Level 0.94 H POC ABG pH POC ABG pCO2 POC ABG pO2 Sodium Potassium Chloride Carbon Dioxide BUN Creatinine Glucose POC Glucose 131 H Calcium Phosphorus Magnesium AST Alkaline Phosphatase C-Reactive Protein Total Protein Albumin Lipase Vitamin B12 TSH Urine WBC (Auto) Urine Chloride Urine Total Protein Vancomycin Trough Crossmatch 11/06/16 11/06/16 11/06/16 05:00 11:45 18:23 WBC RBC Hgb Hct MCV RDW Plt Count Lymph % (Auto) [place] % (Auto) [place] # Seg Neutrophils % Seg Neuts % (Manual) Lymphocytes % (Manual) Monocytes % (Manual) Basophils % (Manual) Nucleated RBC % Seg Neutrophils # Seg Neutrophils # Man Lymphocytes # (Manual) Monocytes # (Manual) Eosinophils # (Manual) Basophils # (Manual) PT INR APTT Heparin Anti-Xa Level POC ABG pH POC ABG pCO2 POC ABG pO2 Sodium Potassium 3.5 L Chloride 107.1 H Carbon Dioxide 20 L BUN 4 L Creatinine 0.6 L Glucose 104 H POC Glucose 141 H 255 H Calcium 6.7 L Phosphorus Magnesium AST Alkaline Phosphatase C-Reactive Protein Total Protein Albumin Lipase Vitamin B12 TSH Urine WBC (Auto) Urine Chloride Urine Total Protein Vancomycin Trough Crossmatch 11/06/16 11/06/16 11/07/16 22:07 23:07 11:41 WBC RBC Hgb Hct MCV RDW Plt Count Lymph % (Auto) [place] % (Auto) [place] # Seg Neutrophils % Seg Neuts % (Manual) Lymphocytes % (Manual) Monocytes % (Manual) Basophils % (Manual) Nucleated RBC % Seg Neutrophils # Seg Neutrophils # Man Lymphocytes # (Manual) Monocytes # (Manual) Eosinophils # (Manual) Basophils # (Manual) PT INR APTT Heparin Anti-Xa Level 0.80 H POC ABG pH POC ABG pCO2 POC ABG pO2 Sodium Potassium Chloride Carbon Dioxide BUN Creatinine Glucose POC Glucose 183 H 132 H Calcium Phosphorus Magnesium AST Alkaline Phosphatase C-Reactive Protein Total Protein Albumin Lipase Vitamin B12 TSH Urine WBC (Auto) Urine Chloride Urine Total Protein Vancomycin Trough Crossmatch 11/07/16 11/07/16 11/07/16 12:17 17:05 17:58 WBC RBC Hgb Hct MCV RDW Plt Count Lymph % (Auto) [place] % (Auto) [place] # Seg Neutrophils % Seg Neuts % (Manual) Lymphocytes % (Manual) Monocytes % (Manual) Basophils % (Manual) Nucleated RBC % Seg Neutrophils # Seg Neutrophils # Man Lymphocytes # (Manual) Monocytes # (Manual) Eosinophils # (Manual) Basophils # (Manual) PT INR APTT Heparin Anti-Xa Level 0.87 H POC ABG pH 7.324 L POC ABG pCO2 POC ABG pO2 Sodium Potassium Chloride Carbon Dioxide BUN Creatinine Glucose POC Glucose 158 H Calcium Phosphorus Magnesium AST Alkaline Phosphatase C-Reactive Protein Total Protein Albumin Lipase Vitamin B12 TSH Urine WBC (Auto) Urine Chloride Urine Total Protein Vancomycin Trough Crossmatch 11/07/16 11/07/16 11/07/16 23:26 Unknown Unknown WBC 12.3 H RBC 2.96 L Hgb 9.1 L Hct 27.9 L MCV RDW 16.8 H Plt Count Lymph % (Auto) [place] % (Auto) [place] # Seg Neutrophils % Seg Neuts % (Manual) 80.0 H Lymphocytes % (Manual) 7.0 L Monocytes % (Manual) Basophils % (Manual) Nucleated RBC % Seg Neutrophils # Seg Neutrophils # Man 9.8 H Lymphocytes # (Manual) 0.9 L Monocytes # (Manual) Eosinophils # (Manual) Basophils # (Manual) PT INR APTT Heparin Anti-Xa Level POC ABG pH POC ABG pCO2 POC ABG pO2 Sodium Potassium Chloride Carbon Dioxide 19 L BUN Creatinine Glucose 106 H POC Glucose 130 H Calcium 6.9 L Phosphorus Magnesium AST Alkaline Phosphatase C-Reactive Protein Total Protein Albumin Lipase Vitamin B12 TSH Urine WBC (Auto) Urine Chloride Urine Total Protein Vancomycin Trough Crossmatch 11/07/16 11/08/16 11/08/16 Unknown 05:14 05:20 WBC 12.4 H RBC 3.04 L Hgb 9.2 L Hct 28.8 L MCV RDW 16.6 H Plt Count Lymph % (Auto) [place] % (Auto) [place] # Seg Neutrophils % Seg Neuts % (Manual) 77.0 H Lymphocytes % (Manual) 5.0 L Monocytes % (Manual) Basophils % (Manual) 2.0 H Nucleated RBC % Seg Neutrophils # Seg Neutrophils # Man 9.5 H Lymphocytes # (Manual) 0.6 L Monocytes # (Manual) Eosinophils # (Manual) Basophils # (Manual) 0.2 H PT INR APTT Heparin Anti-Xa Level 0.90 H POC ABG pH POC ABG pCO2 POC ABG pO2 Sodium Potassium Chloride Carbon Dioxide BUN Creatinine Glucose POC Glucose 204 H Calcium Phosphorus Magnesium AST Alkaline Phosphatase C-Reactive Protein Total Protein Albumin Lipase Vitamin B12 TSH Urine WBC (Auto) Urine Chloride Urine Total Protein Vancomycin Trough Crossmatch 11/08/16 11/08/16 11/08/16 05:20 12:10 13:10 WBC RBC Hgb Hct MCV RDW Plt Count Lymph % (Auto) [place] % (Auto) [place] # Seg Neutrophils % Seg Neuts % (Manual) Lymphocytes % (Manual) Monocytes % (Manual) Basophils % (Manual) Nucleated RBC % Seg Neutrophils # Seg Neutrophils # Man Lymphocytes # (Manual) Monocytes # (Manual) Eosinophils # (Manual) Basophils # (Manual) PT INR APTT Heparin Anti-Xa Level POC ABG pH POC ABG pCO2 33.7 L POC ABG pO2 Sodium 136 L Potassium Chloride Carbon Dioxide 19 L BUN Creatinine Glucose 192 H POC Glucose 180 H Calcium 7.1 L Phosphorus Magnesium AST Alkaline Phosphatase C-Reactive Protein Total Protein Albumin Lipase Vitamin B12 TSH Urine WBC (Auto) Urine Chloride Urine Total Protein Vancomycin Trough Crossmatch 11/08/16 11/08/16 11/08/16 17:26 20:45 23:34 WBC RBC Hgb Hct MCV RDW Plt Count Lymph % (Auto) [place] % (Auto) [place] # Seg Neutrophils % Seg Neuts % (Manual) Lymphocytes % (Manual) Monocytes % (Manual) Basophils % (Manual) Nucleated RBC % Seg Neutrophils # Seg Neutrophils # Man Lymphocytes # (Manual) Monocytes # (Manual) Eosinophils # (Manual) Basophils # (Manual) PT INR APTT Heparin Anti-Xa Level POC ABG pH POC ABG pCO2 POC ABG pO2 Sodium Potassium Chloride Carbon Dioxide BUN Creatinine Glucose POC Glucose 187 H 178 H Calcium Phosphorus Magnesium AST Alkaline Phosphatase C-Reactive Protein Total Protein Albumin Lipase Vitamin B12 TSH Urine WBC (Auto) Urine Chloride Urine Total Protein Vancomycin Trough 35.4 H Crossmatch 11/09/16 11/09/16 11/09/16 05:30 05:30 05:59 WBC 11.5 H RBC 2.96 L Hgb 9.2 L Hct 28.2 L MCV RDW 16.4 H Plt Count Lymph % (Auto) [place] % (Auto) [place] # Seg Neutrophils % Seg Neuts % (Manual) 76.0 H Lymphocytes % (Manual) 2.0 L Monocytes % (Manual) Basophils % (Manual) Nucleated RBC % Seg Neutrophils # Seg Neutrophils # Man 8.7 H Lymphocytes # (Manual) 0.2 L Monocytes # (Manual) Eosinophils # (Manual) Basophils # (Manual) PT INR APTT Heparin Anti-Xa Level POC ABG pH POC ABG pCO2 POC ABG pO2 Sodium Potassium 3.4 L Chloride 107.6 H Carbon Dioxide 19 L BUN Creatinine 0.6 L Glucose 207 H POC Glucose 263 H Calcium 7.3 L Phosphorus Magnesium AST Alkaline Phosphatase C-Reactive Protein Total Protein Albumin Lipase Vitamin B12 TSH Urine WBC (Auto) Urine Chloride Urine Total Protein Vancomycin Trough Crossmatch 11/09/16 11/09/16 11/09/16 11:49 15:24 18:04 WBC RBC Hgb Hct MCV RDW Plt Count Lymph % (Auto) [place] % (Auto) [place] # Seg Neutrophils % Seg Neuts % (Manual) Lymphocytes % (Manual) Monocytes % (Manual) Basophils % (Manual) Nucleated RBC % Seg Neutrophils # Seg Neutrophils # Man Lymphocytes # (Manual) Monocytes # (Manual) Eosinophils # (Manual) Basophils # (Manual) PT INR APTT Heparin Anti-Xa Level POC ABG pH POC ABG pCO2 33.8 L POC ABG pO2 131 H Sodium Potassium Chloride Carbon Dioxide BUN Creatinine Glucose POC Glucose 269 H 242 H Calcium Phosphorus Magnesium AST Alkaline Phosphatase C-Reactive Protein Total Protein Albumin Lipase Vitamin B12 TSH Urine WBC (Auto) Urine Chloride Urine Total Protein Vancomycin Trough Crossmatch 11/09/16 11/10/16 11/10/16 22:57 04:30 04:30 WBC 15.7 H RBC 3.17 L Hgb 9.7 L Hct 30.2 L MCV RDW 16.2 H Plt Count Lymph % (Auto) [place] % (Auto) [place] # Seg Neutrophils % Seg Neuts % (Manual) Lymphocytes % (Manual) Monocytes % (Manual) Basophils % (Manual) Nucleated RBC % Seg Neutrophils # Seg Neutrophils # Man 8.5 H Lymphocytes # (Manual) Monocytes # (Manual) Eosinophils # (Manual) 0.5 H Basophils # (Manual) PT INR APTT Heparin Anti-Xa Level POC ABG pH POC ABG pCO2 POC ABG pO2 Sodium Potassium Chloride Carbon Dioxide 19 L BUN Creatinine 0.6 L Glucose 199 H POC Glucose 239 H Calcium 7.8 L Phosphorus Magnesium AST Alkaline Phosphatase C-Reactive Protein Total Protein Albumin Lipase Vitamin B12 TSH Urine WBC (Auto) Urine Chloride Urine Total Protein Vancomycin Trough Crossmatch 11/10/16 11/10/16 11/10/16 04:30 11:32 16:00 WBC RBC Hgb Hct MCV RDW Plt Count Lymph % (Auto) [place] % (Auto) [place] # Seg Neutrophils % Seg Neuts % (Manual) Lymphocytes % (Manual) Monocytes % (Manual) Basophils % (Manual) Nucleated RBC % Seg Neutrophils # Seg Neutrophils # Man Lymphocytes # (Manual) Monocytes # (Manual) Eosinophils # (Manual) Basophils # (Manual) PT INR APTT Heparin Anti-Xa Level 1.09 H < 0.10 L POC ABG pH POC ABG pCO2 POC ABG pO2 Sodium Potassium Chloride Carbon Dioxide BUN Creatinine Glucose POC Glucose 211 H Calcium Phosphorus Magnesium AST Alkaline Phosphatase C-Reactive Protein Total Protein Albumin Lipase Vitamin B12 TSH Urine WBC (Auto) Urine Chloride Urine Total Protein Vancomycin Trough Crossmatch 11/10/16 11/10/16 11/10/16 17:39 18:00 23:06 WBC RBC Hgb Hct MCV RDW Plt Count Lymph % (Auto) [place] % (Auto) [place] # Seg Neutrophils % Seg Neuts % (Manual) Lymphocytes % (Manual) Monocytes % (Manual) Basophils % (Manual) Nucleated RBC % Seg Neutrophils # Seg Neutrophils # Man Lymphocytes # (Manual) Monocytes # (Manual) Eosinophils # (Manual) Basophils # (Manual) PT INR APTT Heparin Anti-Xa Level 0.85 H POC ABG pH POC ABG pCO2 POC ABG pO2 Sodium Potassium Chloride Carbon Dioxide BUN Creatinine Glucose POC Glucose 249 H 220 H Calcium Phosphorus Magnesium AST Alkaline Phosphatase C-Reactive Protein Total Protein Albumin Lipase Vitamin B12 TSH Urine WBC (Auto) Urine Chloride Urine Total Protein Vancomycin Trough Crossmatch 11/11/16 11/11/16 11/11/16 05:56 06:15 06:15 WBC 13.3 H RBC 2.87 L Hgb 8.7 L Hct 27.2 L MCV RDW 16.4 H Plt Count Lymph % (Auto) [place] % (Auto) [place] # 0.9 H Seg Neutrophils % 78.9 H Seg Neuts % (Manual) Lymphocytes % (Manual) Monocytes % (Manual) Basophils % (Manual) Nucleated RBC % Seg Neutrophils # 10.5 H Seg Neutrophils # Man Lymphocytes # (Manual) Monocytes # (Manual) Eosinophils # (Manual) Basophils # (Manual) PT INR APTT Heparin Anti-Xa Level POC ABG pH POC ABG pCO2 POC ABG pO2 Sodium Potassium 3.2 L Chloride Carbon Dioxide 19 L BUN Creatinine Glucose POC Glucose 117 H Calcium 7.6 L Phosphorus Magnesium AST Alkaline Phosphatase C-Reactive Protein Total Protein Albumin Lipase Vitamin B12 TSH Urine WBC (Auto) Urine Chloride Urine Total Protein Vancomycin Trough Crossmatch 11/11/16 11/11/16 11/11/16 12:26 16:58 17:33 WBC RBC Hgb Hct MCV RDW Plt Count Lymph % (Auto) [place] % (Auto) [place] # Seg Neutrophils % Seg Neuts % (Manual) Lymphocytes % (Manual) Monocytes % (Manual) Basophils % (Manual) Nucleated RBC % Seg Neutrophils # Seg Neutrophils # Man Lymphocytes # (Manual) Monocytes # (Manual) Eosinophils # (Manual) Basophils # (Manual) PT INR APTT Heparin Anti-Xa Level < 0.10 L POC ABG pH POC ABG pCO2 POC ABG pO2 Sodium Potassium Chloride Carbon Dioxide BUN Creatinine Glucose POC Glucose 114 H 161 H Calcium Phosphorus Magnesium AST Alkaline Phosphatase C-Reactive Protein Total Protein Albumin Lipase Vitamin B12 TSH Urine WBC (Auto) Urine Chloride Urine Total Protein Vancomycin Trough Crossmatch 11/12/16 11/12/16 11/12/16 05:00 05:00 05:00 WBC 12.8 H RBC 2.75 L Hgb 8.4 L Hct 25.7 L MCV RDW 16.3 H Plt Count Lymph % (Auto) [place] % (Auto) 7.5 H [place] # 1.0 H Seg Neutrophils % 78.0 H Seg Neuts % (Manual) Lymphocytes % (Manual) Monocytes % (Manual) Basophils % (Manual) Nucleated RBC % Seg Neutrophils # 10.0 H Seg Neutrophils # Man Lymphocytes # (Manual) Monocytes # (Manual) Eosinophils # (Manual) Basophils # (Manual) PT INR APTT Heparin Anti-Xa Level 0.87 H POC ABG pH POC ABG pCO2 POC ABG pO2 Sodium Potassium 3.4 L Chloride Carbon Dioxide 19 L BUN Creatinine Glucose 112 H POC Glucose Calcium 7.7 L Phosphorus Magnesium AST Alkaline Phosphatase C-Reactive Protein Total Protein Albumin Lipase Vitamin B12 TSH Urine WBC (Auto) Urine Chloride Urine Total Protein Vancomycin Trough Crossmatch 11/12/16 11/12/16 11/13/16 11:18 16:40 00:44 WBC RBC Hgb Hct MCV RDW Plt Count Lymph % (Auto) [place] % (Auto) [place] # Seg Neutrophils % Seg Neuts % (Manual) Lymphocytes % (Manual) Monocytes % (Manual) Basophils % (Manual) Nucleated RBC % Seg Neutrophils # Seg Neutrophils # Man Lymphocytes # (Manual) Monocytes # (Manual) Eosinophils # (Manual) Basophils # (Manual) PT INR APTT Heparin Anti-Xa Level POC ABG pH POC ABG pCO2 POC ABG pO2 Sodium Potassium Chloride Carbon Dioxide BUN Creatinine Glucose POC Glucose 135 H 139 H 169 H Calcium Phosphorus Magnesium AST Alkaline Phosphatase C-Reactive Protein Total Protein Albumin Lipase Vitamin B12 TSH Urine WBC (Auto) Urine Chloride Urine Total Protein Vancomycin Trough Crossmatch 11/13/16 11/13/16 11/13/16 05:28 05:28 06:02 WBC 12.7 H RBC 2.93 L Hgb 9.0 L Hct 27.6 L MCV RDW 16.1 H Plt Count Lymph % (Auto) [place] % (Auto) [place] # Seg Neutrophils % 78.6 H Seg Neuts % (Manual) Lymphocytes % (Manual) Monocytes % (Manual) Basophils % (Manual) Nucleated RBC % Seg Neutrophils # 10.0 H Seg Neutrophils # Man Lymphocytes # (Manual) Monocytes # (Manual) Eosinophils # (Manual) Basophils # (Manual) PT INR APTT Heparin Anti-Xa Level POC ABG pH POC ABG pCO2 POC ABG pO2 Sodium Potassium Chloride Carbon Dioxide 17 L BUN Creatinine Glucose 116 H POC Glucose 112 H Calcium 7.8 L Phosphorus Magnesium AST Alkaline Phosphatase C-Reactive Protein Total Protein Albumin Lipase Vitamin B12 TSH Urine WBC (Auto) Urine Chloride Urine Total Protein Vancomycin Trough Crossmatch 11/13/16 11/13/16 11/13/16 12:34 16:55 17:00 WBC RBC Hgb Hct MCV RDW Plt Count Lymph % (Auto) [place] % (Auto) [place] # Seg Neutrophils % Seg Neuts % (Manual) Lymphocytes % (Manual) Monocytes % (Manual) Basophils % (Manual) Nucleated RBC % Seg Neutrophils # Seg Neutrophils # Man Lymphocytes # (Manual) Monocytes # (Manual) Eosinophils # (Manual) Basophils # (Manual) PT INR APTT Heparin Anti-Xa Level POC ABG pH POC ABG pCO2 22.9 L POC ABG pO2 53 L Sodium Potassium Chloride Carbon Dioxide BUN Creatinine Glucose POC Glucose 109 H 122 H Calcium Phosphorus Magnesium AST Alkaline Phosphatase C-Reactive Protein Total Protein Albumin Lipase Vitamin B12 TSH Urine WBC (Auto) Urine Chloride Urine Total Protein Vancomycin Trough Crossmatch 11/13/16 11/14/16 11/14/16 23:33 04:42 04:42 WBC 11.7 H RBC 3.01 L Hgb 9.3 L Hct 28.9 L MCV RDW 16.5 H Plt Count Lymph % (Auto) [place] % (Auto) [place] # Seg Neutrophils % Seg Neuts % (Manual) 79.0 H Lymphocytes % (Manual) 10.0 L Monocytes % (Manual) Basophils % (Manual) Nucleated RBC % Seg Neutrophils # Seg Neutrophils # Man 9.2 H Lymphocytes # (Manual) Monocytes # (Manual) Eosinophils # (Manual) Basophils # (Manual) PT INR APTT Heparin Anti-Xa Level POC ABG pH POC ABG pCO2 POC ABG pO2 Sodium Potassium Chloride Carbon Dioxide 16 L BUN Creatinine Glucose 102 H POC Glucose 173 H Calcium 7.5 L Phosphorus Magnesium AST Alkaline Phosphatase C-Reactive Protein Total Protein Albumin Lipase Vitamin B12 TSH Urine WBC (Auto) Urine Chloride Urine Total Protein Vancomycin Trough Crossmatch 11/14/16 11/14/16 11/14/16 11:43 16:57 19:45 WBC RBC Hgb Hct MCV RDW Plt Count Lymph % (Auto) [place] % (Auto) [place] # Seg Neutrophils % Seg Neuts % (Manual) Lymphocytes % (Manual) Monocytes % (Manual) Basophils % (Manual) Nucleated RBC % Seg Neutrophils # Seg Neutrophils # Man Lymphocytes # (Manual) Monocytes # (Manual) Eosinophils # (Manual) Basophils # (Manual) PT INR APTT Heparin Anti-Xa Level 0.71 H POC ABG pH POC ABG pCO2 POC ABG pO2 Sodium Potassium Chloride Carbon Dioxide BUN Creatinine Glucose POC Glucose 130 H 209 H Calcium Phosphorus Magnesium AST Alkaline Phosphatase C-Reactive Protein Total Protein Albumin Lipase Vitamin B12 TSH Urine WBC (Auto) Urine Chloride Urine Total Protein Vancomycin Trough Crossmatch 11/14/16 11/15/16 11/16/16 23:43 23:47 06:11 WBC RBC Hgb Hct MCV RDW Plt Count Lymph % (Auto) [place] % (Auto) [place] # Seg Neutrophils % Seg Neuts % (Manual) Lymphocytes % (Manual) Monocytes % (Manual) Basophils % (Manual) Nucleated RBC % Seg Neutrophils # Seg Neutrophils # Man Lymphocytes # (Manual) Monocytes # (Manual) Eosinophils # (Manual) Basophils # (Manual) PT INR APTT Heparin Anti-Xa Level POC ABG pH POC ABG pCO2 POC ABG pO2 Sodium Potassium Chloride Carbon Dioxide BUN Creatinine Glucose POC Glucose 167 H 114 H 125 H Calcium Phosphorus Magnesium AST Alkaline Phosphatase C-Reactive Protein Total Protein Albumin Lipase Vitamin B12 TSH Urine WBC (Auto) Urine Chloride Urine Total Protein Vancomycin Trough Crossmatch 11/16/16 11/16/16 09:05 09:05 WBC RBC 2.53 L Hgb 8.0 L Hct 23.7 L MCV RDW 15.9 H Plt Count Lymph % (Auto) [place] % (Auto) [place] # Seg Neutrophils % Seg Neuts % (Manual) Lymphocytes % (Manual) Monocytes % (Manual) Basophils % (Manual) Nucleated RBC % Seg Neutrophils # Seg Neutrophils # Man Lymphocytes # (Manual) Monocytes # (Manual) Eosinophils # (Manual) Basophils # (Manual) PT INR APTT Heparin Anti-Xa Level POC ABG pH POC ABG pCO2 POC ABG pO2 Sodium Potassium 2.5 L* D Chloride Carbon Dioxide 19 L BUN 5 L Creatinine Glucose 103 H POC Glucose Calcium 6.6 L Phosphorus Magnesium AST Alkaline Phosphatase C-Reactive Protein Total Protein Albumin Lipase Vitamin B12 TSH Urine WBC (Auto) Urine Chloride Urine Total Protein Vancomycin Trough Crossmatch Allied health notes reviewed: RT
--- NOTE | 2016-11-16 11:27 | Gastroenterology Progress Note ---
Assessment and Plan GI: stable, tolerating tube feeds - continue current meds and diet - no further GI intervention at this time, call if needed Subjective Date of service: 11/16/16 Principal diagnosis: respiratory failure on mechanical ventilatory support, DKA Interval history: - tolerating tube feeds Objective - Constitutional Vitals: Temp Pulse Resp BP Pulse Ox 98.4 F 87 24 132/64 100 11/16/16 08:00 11/16/16 10:19 11/16/16 10:19 11/16/16 10:19 11/16/16 10:19 General appearance: no acute distress - EENT Eyes: PERRL - Respiratory Respiratory: bilateral: CTA - Cardiovascular Rhythm: regular Heart Sounds: Present: S1 & S2 - Gastrointestinal General gastrointestinal: Present: soft, non-tender, non-distended - Labs CBC & Chem 7: 11/16/16 09:05 11/16/16 09:05 Labs: Laboratory Results - last 24 hr 11/15/16 11/15/16 11/15/16 12:10 18:02 23:47 WBC RBC Hgb Hct MCV MCH MCHC RDW Plt Count Heparin Anti-Xa Level Sodium Potassium Chloride Carbon Dioxide Anion Gap BUN Creatinine Estimated GFR BUN/Creatinine Ratio Glucose POC Glucose 104 101 114 H Calcium Magnesium 11/16/16 11/16/16 11/16/16 05:00 06:11 09:05 WBC 8.4 RBC 2.53 L Hgb 8.0 L Hct 23.7 L MCV 94 MCH 32 MCHC 34 RDW 15.9 H Plt Count 357 Heparin Anti-Xa Level 0.53 Sodium Potassium Chloride Carbon Dioxide Anion Gap BUN Creatinine Estimated GFR BUN/Creatinine Ratio Glucose POC Glucose 125 H Calcium Magnesium 11/16/16 11/16/16 09:05 09:05 WBC RBC Hgb Hct MCV MCH MCHC RDW Plt Count Heparin Anti-Xa Level Sodium 138 Potassium 2.5 L* D Chloride 102.9 Carbon Dioxide 19 L Anion Gap 19 BUN 5 L Creatinine 0.7 Estimated GFR > 60 BUN/Creatinine Ratio 7.14 Glucose 103 H POC Glucose Calcium 6.6 L Magnesium 1.3 L
[2016-11-16] MEDS: POTASSIUM CHLORIDE FEEDTUBE SCH ×3 (11:50→18:32)
[2016-11-16 13:23] LABS: INR 1.61 (0.87-1.13)
[2016-11-16] MEDS ORDERED: MAGNESIUM SULFATE 4GM/100ML 4 GM/100 ML BAG IV ONE (15:00)
[2016-11-16 15:02] LABS: ISTAT Base Excess -6; ISTAT HCO3 17.5; ISTAT PCO2 23.6 (35-45); ISTAT PH 7.479 (7.35-7.45); ISTAT PO2 83 (80-105); ISTAT SO2 97; ISTAT TCO2 18
--- NOTE | 2016-11-16 16:13 | Progress Note ---
Assessment and Plan Assessment and plan: 66-year-old woman who presented with lethargy and altered mental status she deteriorated and was intubated and in emergency room, she was managed for DKA and she also developed sepsis due to UTI and right lower extremity ischemia 1. Acute respiratory failure with hypercapnia remains on ventilatory support status post trach and PEG 2. Diabetes=-on admission had DKA this has resolved. Continue SubQ insulin 3. Gastroenteritis question diabetic gastroparesis. GI consulted and noted. We'll monitor, tolerating PEG FEED. if reoccurs will get CT abdomen 4. 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 Consider possible conversion to AKA. 5. Sepsis- Leukocytosis -ID following multifactorial. UTI. Continue to monitor 6. Toxic metabolic encephalopathy- improved. 7. Abdominal pain-does appear to have gastric distention no evidence of obstruction and NG tube in place GI consulted. Monitor closely. Associated. 8. LUCY- present on admissions. likely vasomotor . resolved 9. Tachycardia- continue BB, cardizem, 9. Anemia- 11. Metabolic acidosis-monitor closely may need to add bicarbonate if needed 12. severe Hyperkalemia- replaced. recheck in AM. Critical care time 35 MINUTES Plan Discussed with family and showcase trimmer History Interval history: Patient seen and examined, no focal vomiting noted tolerating PEG tube feedings. Hospitalist Physical - Physical exam Narrative exam: VITAL SIGNS: Reviewed. GENERAL: The patient appeared well nourished and normally developed. Vital signs as documented. HEAD: No signs of head trauma. EYES: Pupils are equal. Extraocular motions intact. EARS: Hearing grossly intact. MOUTH: missing dentition NECK: Trach CHEST: Chest with diminshed CARDIAC: Regular rate and rhythm. S1 and S2, without murmurs, gallops, or rubs. VASCULAR: trace Edema. Peripheral pulses left lower ext ABDOMEN: Soft, distended, tender. No rebound or guarding, and no masses palpated. Bowel Sounds normal. MUSCULOSKELETAL: BKA right lower extremity dressing in place. Some necrosis to the lateral aspect. NEUROLOGIC EXAM: follows command. PSYCHIATRIC: mood appears normal. SKIN: dressing to right lower ext stump - Constitutional Vitals: Temp Pulse Resp BP Pulse Ox 98.8 F 125 H 27 H 125/72 98 11/16/16 12:00 11/16/16 15:30 11/16/16 15:30 11/16/16 15:30 11/16/16 15:30 General appearance: Present: no acute distress Results - Labs CBC & Chem 7: 11/16/16 09:05 11/16/16 09:05 Labs: Laboratory Last Values WBC 8.4 K/mm3 (4.5-11.0) 11/16/16 09:05 RBC 2.53 M/mm3 (3.65-5.03) L 11/16/16 09:05 Hgb 8.0 gm/dl (10.1-14.3) L 11/16/16 09:05 Hct 23.7 % (30.3-42.9) L 11/16/16 09:05 MCV 94 fl (79-97) 11/16/16 09:05 MCH 32 pg (28-32) 11/16/16 09:05 MCHC 34 % (30-34) 11/16/16 09:05 RDW 15.9 % (13.2-15.2) H 11/16/16 09:05 Plt Count 357 K/mm3 (140-440) 11/16/16 09:05 Lymph % (Auto) 13.8 % (13.4-35.0) 11/13/16 05:28 [place] % (Auto) 6.4 % (0.0-7.3) 11/13/16 05:28 Eos % (Auto) 0.9 % (0.0-4.3) 11/13/16 05:28 Baso % (Auto) 0.3 % (0.0-1.8) 11/13/16 05:28 Lymph # 1.8 K/mm3 (1.2-5.4) 11/13/16 05:28 [place] # 0.8 K/mm3 (0.0-0.8) 11/13/16 05:28 Eos # 0.1 K/mm3 (0.0-0.4) 11/13/16 05:28 Baso # 0.0 K/mm3 (0.0-0.1) 11/13/16 05:28 Add Manual Diff Complete 11/14/16 04:42 Total Counted 100 11/14/16 04:42 Seg Neutrophils % 78.6 % (40.0-70.0) H 11/13/16 05:28 Seg Neuts % (Manual) 79.0 % (40.0-70.0) H 11/14/16 04:42 Band Neutrophils % 6.0 % 11/14/16 04:42 Lymphocytes % (Manual) 10.0 % (13.4-35.0) L 11/14/16 04:42 Reactive Lymphs % (Man) 0 % 11/14/16 04:42 Monocytes % (Manual) 5.0 % (0.0-7.3) 11/14/16 04:42 Eosinophils % (Manual) 0 % (0.0-4.3) 11/14/16 04:42 Basophils % (Manual) 0 % (0.0-1.8) 11/14/16 04:42 Metamyelocytes % 0 % 11/14/16 04:42 Myelocytes % 0 % 11/14/16 04:42 Promyelocytes % 0 % 11/14/16 04:42 Blast Cells % 0 % 11/14/16 04:42 Nucleated RBC % Not Reportable 11/14/16 04:42 Seg Neutrophils # 10.0 K/mm3 (1.8-7.7) H 11/13/16 05:28 Seg Neutrophils # Man 9.2 K/mm3 (1.8-7.7) H 11/14/16 04:42 Band Neutrophils # 0.7 K/mm3 11/14/16 04:42 Lymphocytes # (Manual) 1.2 K/mm3 (1.2-5.4) 11/14/16 04:42 Abs React Lymphs (Man) 0.0 K/mm3 11/14/16 04:42 Monocytes # (Manual) 0.6 K/mm3 (0.0-0.8) 11/14/16 04:42 Eosinophils # (Manual) 0.0 K/mm3 (0.0-0.4) 11/14/16 04:42 Basophils # (Manual) 0.0 K/mm3 (0.0-0.1) 11/14/16 04:42 Metamyelocytes # 0.0 K/mm3 11/14/16 04:42 Myelocytes # 0.0 K/mm3 11/14/16 04:42 Promyelocytes # 0.0 K/mm3 11/14/16 04:42 Blast Cells # 0.0 K/mm3 11/14/16 04:42 Pathologist Review 10/29/16 09:30 WBC Morphology Not Reportable 11/14/16 04:42 Hypersegmented Neuts Not Reportable 11/14/16 04:42 Hyposegmented Neuts Not Reportable 11/14/16 04:42 Hypogranular Neuts Not Reportable 11/14/16 04:42 Hypersegmented Polys TNR 10/17/16 07:08 Smudge Cells Not Reportable 11/14/16 04:42 Toxic Granulation Not Reportable 11/14/16 04:42 Toxic Vacuolation Not Reportable 11/14/16 04:42 Dohle Bodies Not Reportable 11/14/16 04:42 Pelger-Huet Anomaly Not Reportable 11/14/16 04:42 [place] Rods Not Reportable 11/14/16 04:42 Platelet Estimate Consistent w auto 11/14/16 04:42 Clumped Platelets Not Reportable 11/14/16 04:42 Plt Clumps, EDTA Not Reportable 11/14/16 04:42 Large Platelets Not Reportable 11/14/16 04:42 Giant Platelets Not Reportable 11/14/16 04:42 Platelet Satelliting Not Reportable 11/14/16 04:42 Plt Morphology Comment Not Reportable 11/14/16 04:42 RBC Morphology Not Reportable 11/14/16 04:42 Dimorphic RBCs Not Reportable 11/14/16 04:42 Polychromasia Not Reportable 11/14/16 04:42 Hypochromasia Not Reportable 11/14/16 04:42 Poikilocytosis Not Reportable 11/14/16 04:42 Basophilic Stippling TNR 10/17/16 07:08 Anisocytosis 1+ 11/14/16 04:42 Microcytosis Not Reportable 11/14/16 04:42 Macrocytosis Not Reportable 11/14/16 04:42 Spherocytes Not Reportable 11/14/16 04:42 Pappenheimer Bodies Not Reportable 11/14/16 04:42 Sickle Cells Not Reportable 11/14/16 04:42 Target Cells Not Reportable 11/14/16 04:42 Tear Drop Cells Not Reportable 11/14/16 04:42 Ovalocytes Not Reportable 11/14/16 04:42 Stomatocytes Few 11/03/16 00:05 Helmet Cells Not Reportable 11/14/16 04:42 [place] Bodies Not Reportable 11/14/16 04:42 [place] Rings Not Reportable 11/14/16 04:42 [place] Cells Not Reportable 11/14/16 04:42 Bite Cells Not Reportable 11/14/16 04:42 Crenated Cell Not Reportable 11/14/16 04:42 Elliptocytes Not Reportable 11/14/16 04:42 Acanthocytes (Spur) Not Reportable 11/14/16 04:42 Rouleaux Not Reportable 11/14/16 04:42 Hemoglobin C Crystals Not Reportable 11/14/16 04:42 Schistocytes Not Reportable 11/14/16 04:42 Malaria parasites Not Reportable 11/14/16 04:42 David Bodies Not Reportable 11/14/16 04:42 Hem Pathologist Commnt No 11/14/16 04:42 PT 19.1 Sec. (12.2-14.9) H 11/16/16 13:00 INR 1.61 (0.87-1.13) H 11/16/16 13:00 APTT 38.8 Sec. (24.2-36.6) H 10/17/16 16:07 Heparin Anti-Xa Level 0.53 U.I./ml (0.3-0.7) 11/16/16 05:00 POC ABG pH 7.479 (7.35-7.45) H 11/16/16 14:45 POC ABG pCO2 23.6 (35-45) L 11/16/16 14:45 POC ABG pO2 83 (80-105) 11/16/16 14:45 POC ABG HCO3 17.5 11/16/16 14:45 POC ABG Total CO2 18 11/16/16 14:45 POC ABG O2 Sat 97 11/16/16 14:45 POC ABG Base Excess -6 11/16/16 14:45 VBG pH 7.020 (7.320-7.420) L* 10/13/16 04:22 FiO2 25 % 11/16/16 14:45 Sodium 138 mmol/L (137-145) 11/16/16 09:05 Potassium 2.5 mmol/L (3.6-5.0) L* D 11/16/16 09:05 Chloride 102.9 mmol/L (98-107) 11/16/16 09:05 Carbon Dioxide 19 mmol/L (22-30) L 11/16/16 09:05 Anion Gap 19 mmol/L 11/16/16 09:05 BUN 5 mg/dL (7-17) L 11/16/16 09:05 Creatinine 0.7 mg/dL (0.7-1.2) 11/16/16 09:05 Estimated GFR > 60 ml/min 11/16/16 09:05 BUN/Creatinine Ratio 7.14 % 11/16/16 09:05 Glucose 103 mg/dL (65-100) H 11/16/16 09:05 POC Glucose 129 (70-105) H 11/16/16 12:15 Osmolality 332 Mosm/kg 10/14/16 07:03 Lactic Acid 1.8 mmol/L (0.7-2.0) 10/14/16 07:03 Calcium 6.6 mg/dL (8.4-10.2) L 11/16/16 09:05 Phosphorus 2.7 mg/dL (2.5-4.5) D 10/21/16 Unknown Magnesium 1.3 mg/dL (1.7-2.3) L 11/16/16 09:05 Total Bilirubin 0.3 mg/dL (0.1-1.2) 11/05/16 02:30 AST 9 units/L (5-40) 11/05/16 02:30 ALT 11 units/L (7-56) 11/05/16 02:30 Alkaline Phosphatase 119 units/L (35-129) 11/05/16 02:30 Ammonia 35.0 umol/L (25-60) 10/13/16 05:40 Total Creatine Kinase 107 units/L (30-135) 10/13/16 04:22 CK-MB (CK-2) 3.1 ng/mL (0.0-4.0) 10/13/16 04:22 CK-MB (CK-2) Rel Index 2.8 (0-4) 10/13/16 04:22 Troponin T < 0.010 ng/mL (0.00-0.029) 10/14/16 18:55 C-Reactive Protein 10.50 mg/dL (0.00-1.30) H 10/13/16 16:14 Total Protein 6.7 g/dL (6.3-8.2) 11/05/16 02:30 Albumin 1.9 g/dL (3.9-5) L 11/05/16 02:30 Albumin/Globulin Ratio 0.4 % 11/05/16 02:30 Amylase 30 units/L (27-131) 11/10/16 04:30 Lipase 41 units/L (13-60) 11/10/16 04:30 Vitamin B12 976.8 pg/mL (211-911) H 10/22/16 10:25 TSH 0.162 mlU/mL (0.270-4.200) L 10/22/16 14:50 Free T4 0.77 ng/dL (0.76-1.46) 10/22/16 14:50 Urine Color Yellow (Yellow) 11/14/16 19:39 Urine Turbidity Cloudy (Clear) 11/14/16 19:39 Urine pH 6.0 (5.0-7.0) 11/14/16 19:39 Ur Specific [place] 1.010 (1.003-1.030) 11/14/16 19:39 Urine Protein 30 mg/dl mg/dL (Negative) 11/14/16 19:39 Urine Glucose (UA) 50 mg/dL (Negative) 11/14/16 19:39 Urine Ketones 20 mg/dL (Negative) 11/14/16 19:39 Urine Blood Lg (Negative) 11/14/16 19:39 Urine Nitrite Neg (Negative) 11/14/16 19:39 Urine Bilirubin Neg (Negative) 11/14/16 19:39 Urine Urobilinogen < 2.0 mg/dL (<2.0) 11/14/16 19:39 Ur Leukocyte Esterase Sm (Negative) 11/14/16 19:39 Urine WBC (Auto) 3.0 /HPF (0.0-6.0) 11/14/16 19:39 Urine RBC (Auto) > 182.0 /HPF (0.0-6.0) 11/14/16 19:39 U Epithel Cells (Auto) 1.0 /HPF (0-13.0) 10/15/16 11:05 Urine Bacteria (Auto) 1+ /HPF (Negative) 11/14/16 19:39 Urine Mucus Few /HPF 11/14/16 19:39 Urine Yeast (Bud[place]) 2+ /HPF 10/15/16 11:05 Urine Osmolality 487 Mosm/kg 10/13/16 Unknown Urine Creatinine < 4.2 mg/dL (0.1-20.0) 10/13/16 Unknown Protein/Creatinin Ratio 0.00 10/13/16 Unknown Urine Sodium 10 mEq/L 10/13/16 Unknown Urine Potassium 1.00 mEq/L 10/13/16 Unknown Urine Chloride 10.0 mEq/L (110-250) L 10/13/16 Unknown Urine Total Protein < 4 mg/dL (5-11.8) L 10/13/16 Unknown Vancomycin Trough 35.4 ug/mL (5.0-20.0) H 11/08/16 20:45 Random Vancomycin 19.4 ug/mL (0-40.0) 11/11/16 06:15 Ketones 107.3 mg/dL (0.2-2.8) H 10/13/16 04:22 Blood Type A POSITIVE 11/03/16 18:01 Antibody Screen Negative 11/03/16 18:01 Crossmatch See Detail 11/03/16 18:01
--- NOTE | 2016-11-16 17:24 | Event Note ---
Date: 11/16/16 Pt started on a heparin drip and was subsequently taken for revascularization ( including an arterial thrombectomy) to improve her chances of healing a right bka. Continue to monitor BKA for viability. Would continue anticoagulation if possible. Discussed with Hospitalist.
--- NOTE | 2016-11-16 21:18 | Progress Note ---
Subjective Date of service: 11/16/16 Principal diagnosis: respiratory failure on mechanical ventilatory support, DKA Interval history: Nurse reported transient urethral bleed wich resolved. Vital signs - Temp 100.2 CHEST - GOOD AIR ENTRY CVS - S1S2 ABD - BS_ LABS See lab section. ASSESSMENT 1. Sepsis 2. dka 3. resp failure 4. htn 5. clostridium difficile colitis 6. bilateral pneumonia 6. RIGHT LEG GANGRENE s/p amputation RECOMMENDATION 1. continue iv abx 2. INR and PT. Objective - Constitutional Vitals: Vital Signs Temp Pulse Resp BP Pulse Ox 98.9 F 89 31 H 125/74 100 11/16/16 16:00 11/16/16 21:05 11/16/16 19:30 11/16/16 21:05 11/16/16 21:05 Temperature -Last 24 Hours Temperature 98.9 F Temperature 98.8 F Temperature 98.4 F Temperature 98.7 F Temperature 100.5 F - Labs CBC & Chem 7: 11/16/16 09:05 11/16/16 09:05 Labs: Abnormal lab results 11/15/16 11/16/16 11/16/16 Range/Units 23:47 06:11 09:05 RBC 2.53 L (3.65-5.03) M/mm3 Hgb 8.0 L (10.1-14.3) gm/dl Hct 23.7 L (30.3-42.9) % RDW 15.9 H (13.2-15.2) % PT (12.2-14.9) Sec. INR (0.87-1.13) POC ABG pH (7.35-7.45) POC ABG pCO2 (35-45) Potassium (3.6-5.0) mmol/L Carbon Dioxide (22-30) mmol/L BUN (7-17) mg/dL Glucose (65-100) mg/dL POC Glucose 114 H 125 H (70-105) Calcium (8.4-10.2) mg/dL Magnesium (1.7-2.3) mg/dL 11/16/16 11/16/16 11/16/16 Range/Units 09:05 09:05 12:15 RBC (3.65-5.03) M/mm3 Hgb (10.1-14.3) gm/dl Hct (30.3-42.9) % RDW (13.2-15.2) % PT (12.2-14.9) Sec. INR (0.87-1.13) POC ABG pH (7.35-7.45) POC ABG pCO2 (35-45) Potassium 2.5 L* D (3.6-5.0) mmol/L Carbon Dioxide 19 L (22-30) mmol/L BUN 5 L (7-17) mg/dL Glucose 103 H (65-100) mg/dL POC Glucose 129 H (70-105) Calcium 6.6 L (8.4-10.2) mg/dL Magnesium 1.3 L (1.7-2.3) mg/dL 11/16/16 11/16/16 Range/Units 13:00 14:45 RBC (3.65-5.03) M/mm3 Hgb (10.1-14.3) gm/dl Hct (30.3-42.9) % RDW (13.2-15.2) % PT 19.1 H (12.2-14.9) Sec. INR 1.61 H (0.87-1.13) POC ABG pH 7.479 H (7.35-7.45) POC ABG pCO2 23.6 L (35-45) Potassium (3.6-5.0) mmol/L Carbon Dioxide (22-30) mmol/L BUN (7-17) mg/dL Glucose (65-100) mg/dL POC Glucose (70-105) Calcium (8.4-10.2) mg/dL Magnesium (1.7-2.3) mg/dL
[2016-11-16] MEDS: HEPARIN/ 0.45% NACL-25,000 UNIT/500 ML 25,000 UNITS/500 ML BAG IV SCH (22:35)
[2016-11-17] MEDS: LOPRESSOR FEEDTUBE SCH ×5 (01:10→23:36)
[2016-11-17] MEDS: REGLAN IV SCH ×5 (01:11→23:35)
[2016-11-17 05:19] LABS: Anion Gap 21 mmol/L; BUN/Creatinine Ratio 8.75; Blood Urea Nitrogen 7 mg/dL (7-17); Calcium 7.5 mg/dL (8.4-10.2); Carbon Dioxide 18 mmol/L (22-30); Chloride 105.4 mmol/L (98-107); Glucose 127 mg/dL (65-100); Sodium 141 mmol/L (137-145)
[2016-11-17 05:22] LABS: Potassium 3.7 mmol/L (3.6-5.0)
[2016-11-17] MEDS: DILAUDID IV PRN ×4 (06:19→23:44)
[2016-11-17 07:52] LABS: White Blood Count TNR K/mm3 (4.5-11.0)
[2016-11-17 07:53] LABS: Hematocrit TNR % (30.3-42.9); Hemoglobin TNR gm/dl (10.1-14.3); Red Blood Count TNR M/mm3 (3.65-5.03)
[2016-11-17 07:54] LABS: Mean Corpuscular HGB Conc TNR % (30-34); Mean Corpuscular Hemoglobin TNR pg (28-32); Mean Corpuscular Volume TNR fl (79-97)
[2016-11-17 07:55] LABS: Platelet Count TNR K/mm3 (140-440); Red Cell Distribution Width TNR % (13.2-15.2)
[2016-11-17 08:43] LABS: Hematocrit 26.5 % (30.3-42.9); Hemoglobin 8.9 gm/dl (10.1-14.3); Mean Corpuscular HGB Conc 34 % (30-34); Mean Corpuscular Hemoglobin 31 pg (28-32); Mean Corpuscular Volume 93 fl (79-97); Platelet Count 404 K/mm3 (140-440); Red Blood Count 2.85 M/mm3 (3.65-5.03); Red Cell Distribution Width 16.2 % (13.2-15.2); White Blood Count 10.3 K/mm3 (4.5-11.0)
[2016-11-17] MEDS: LEVAQUIN 750MG/150ML 750 MG/150 ML BAG IV SCH (10:44)
[2016-11-17] MEDS: PEPCID PO SCH ×2 (10:46→21:17)
[2016-11-17] MEDS: VANCOMYCIN VIAL 1,500 MG in NACL 0.9% 500 ML 500 ML IV SCH (10:46)
[2016-11-17] MEDS: PLAVIX PO SCH (10:46)
--- NOTE | 2016-11-17 11:45 | Progress Note ---
Assessment and Plan Patient sleeping but easily arousable. Patient undergoing T tube trial. [place] is on FIO2 35% and O2 satuaration running 100%.Tolerating good so far. If patient develops any respiratory distress, Patient goes on ventilator.Ventilator standby in the room. I spent critical care time of 35 minutes on this patient examining the patient, review chest ray and labs and talking to the respiratory therapy and work out plan of treatment. - Patient Problems (1) Acute respiratory failure with hypercapnia Current Visit: Yes Status: Acute Plan to address problem: Patient presently on T tube, FIO2 35% Albuterol/atrovent aerosol treatments q 6 hours. Patient on I.V Heparine. Continue famotidine. respiratory suctioning Trach care. (2) LUCY (acute kidney injury) Current Visit: Yes Status: Acute Plan to address problem: Management as per primary care. (3) DKA (diabetic ketoacidoses) Current Visit: Yes Status: Acute Qualifiers: Diabetes mellitus type: D Diabetes mellitus complication detail: D Plan to address problem: Patient is on insulin coverage. and I/V fluids. Management as per primary care. (4) Altered mental status Current Visit: Yes Status: Acute Qualifiers: Altered mental status type: A Coma depth: C Coma timing: C Plan to address problem: Management as per primary care. (5) Sepsis Current Visit: No Status: Acute Qualifiers: Sepsis type: S Plan to address problem: Patient is on Levaquine and Vancomycin (6) Obesity (BMI 30-39.9) Current Visit: No Status: Chronic Qualifiers: Obesity type: O Obesity severity: O Plan to address problem: Weight reduction diet. (7) Ischemia of right lower extremity Current Visit: Yes Status: Acute Plan to address problem: Management as per vascular surgery. Patient BKA of right leg. Subjective Date of service: 11/17/16 Principal diagnosis: respiratory failure on mechanical ventilatory support, DKA Interval history: Patient sleeping but easily arousable. Patient undergoing T tube trial. [place] is on FIO2 35% and O2 satuaration running 100%.Tolerating good so far. If patient develops any respiratory distress, Patient goes on ventilator.Ventilator standby in the room. Objective Vital Signs - 12hr 11/16/16 11/17/16 11/17/16 23:43 00:00 00:30 Temperature 99.4 F Pulse Rate 99 H 100 H 102 H Respiratory 35 H 29 H Rate Blood Pressure 145/87 157/86 148/86 O2 Sat by Pulse 100 100 99 Oximetry O2 Sat by Pulse 100 Oximetry [ Assessment] 11/17/16 11/17/16 11/17/16 01:00 01:10 01:15 Temperature Pulse Rate 100 H 96 H 96 H Respiratory 34 H 23 Rate Blood Pressure 153/87 153/87 O2 Sat by Pulse 100 100 Oximetry O2 Sat by Pulse Oximetry [ Assessment] 11/17/16 11/17/16 11/17/16 01:30 02:00 02:30 Temperature Pulse Rate 107 H 107 H 109 H Respiratory 30 H 35 H 29 H Rate Blood Pressure 156/81 160/80 169/81 O2 Sat by Pulse 100 99 100 Oximetry O2 Sat by Pulse Oximetry [ Assessment] 11/17/16 11/17/16 11/17/16 03:00 03:30 04:00 Temperature 100.6 F H Pulse Rate 100 H 108 H 114 H Respiratory 21 26 H 28 H Rate Blood Pressure 148/79 148/81 170/90 O2 Sat by Pulse 100 99 98 Oximetry O2 Sat by Pulse Oximetry [ Assessment] 11/17/16 11/17/16 11/17/16 04:30 05:00 05:30 Temperature Pulse Rate 111 H 106 H 107 H Respiratory 28 H 24 22 Rate Blood Pressure 164/82 152/71 160/87 O2 Sat by Pulse 99 99 96 Oximetry O2 Sat by Pulse Oximetry [ Assessment] 11/17/16 11/17/16 11/17/16 06:00 06:10 06:19 Temperature Pulse Rate 120 H 88 Respiratory 33 H 30 H Rate Blood Pressure 170/90 O2 Sat by Pulse 95 100 Oximetry O2 Sat by Pulse Oximetry [ Assessment] 11/17/16 11/17/16 11/17/16 06:20 06:30 06:35 Temperature Pulse Rate 108 H 102 H Respiratory 28 H Rate Blood Pressure 170/90 160/87 O2 Sat by Pulse 100 Oximetry O2 Sat by Pulse Oximetry [ Assessment] 11/17/16 11/17/16 11/17/16 06:49 07:00 07:30 Temperature Pulse Rate 96 H 88 Respiratory 20 17 27 H Rate Blood Pressure 107/49 103/43 O2 Sat by Pulse 99 100 Oximetry O2 Sat by Pulse Oximetry [ Assessment] 04/09/0411/17/16 11/17/16 08:00 08:30 09:00 Temperature 99 F Pulse Rate 85 85 86 Respiratory 25 H 24 23 Rate Blood Pressure 98/48 116/61 125/66 O2 Sat by Pulse 100 100 100 Oximetry O2 Sat by Pulse Oximetry [ Assessment] 11/17/16 11/17/16 11/17/16 09:30 09:40 09:45 Temperature Pulse Rate 85 87 Respiratory 23 Rate Blood Pressure 113/57 113/57 O2 Sat by Pulse 100 100 Oximetry O2 Sat by Pulse 100 Oximetry [ Assessment] 11/17/16 11/17/16 11/17/16 10:00 10:30 11:00 Temperature Pulse Rate 93 H 96 H 93 H Respiratory 29 H 34 H 28 H Rate Blood Pressure 132/72 141/81 128/68 O2 Sat by Pulse 100 100 99 Oximetry O2 Sat by Pulse Oximetry [ Assessment] Constitutional: no acute distress, asleep, other (Patient sleeping but easily arousable.) Eyes: non-icteric ENT: oropharynx moist Neck: supple, no lymphadenopathy Effort: mildly labored Ascultation: Bilateral: diminished breath sounds, rales Cardiovascular: regular rate and rhythm, other (tachycardia) Gastrointestinal: normoactive bowel sounds, soft, non-tender, non-distended Integumentary: normal Extremities: no cyanosis, no edema, no ischemia or petechiae, other (s/p right BKA) Neurologic: non-focal exam (grossly), pupils equal and round, other (sedated) Psychiatric: anxious CBC and BMP: 11/17/16 08:34 11/17/16 04:32 ABG, PT/INR, D-dimer: ABG POC ABG pH 7.479 (7.35-7.45) H 11/16/16 14:45 POC ABG pCO2 23.6 (35-45) L 11/16/16 14:45 POC ABG pO2 83 (80-105) 11/16/16 14:45 POC ABG HCO3 17.5 11/16/16 14:45 POC ABG Total CO2 18 11/16/16 14:45 POC ABG O2 Sat 97 11/16/16 14:45 PT/INR, D-dimer PT 19.1 Sec. (12.2-14.9) H 11/16/16 13:00 INR 1.61 (0.87-1.13) H 11/16/16 13:00 Abnormal lab findings: Abnormal Labs 10/13/16 10/13/16 10/13/16 06:38 06:38 07:23 WBC RBC Hgb Hct MCV RDW Plt Count Lymph % (Auto) [place] % (Auto) [place] # Seg Neutrophils % Seg Neuts % (Manual) Lymphocytes % (Manual) Monocytes % (Manual) Basophils % (Manual) Nucleated RBC % Seg Neutrophils # Seg Neutrophils # Man Lymphocytes # (Manual) Monocytes # (Manual) Eosinophils # (Manual) Basophils # (Manual) PT INR APTT Heparin Anti-Xa Level POC ABG pH POC ABG pCO2 POC ABG pO2 Sodium Potassium 6.2 H* Chloride Carbon Dioxide 8 L* BUN 85 H Creatinine 2.8 H Glucose 602 H* POC Glucose 495 H Calcium 7.9 L Phosphorus 6.9 H D Magnesium 3.0 H AST Alkaline Phosphatase C-Reactive Protein Total Protein Albumin Lipase Vitamin B12 TSH Urine WBC (Auto) Urine Chloride Urine Total Protein Vancomycin Trough Crossmatch 10/13/16 10/13/16 10/13/16 08:49 08:55 10:12 WBC RBC Hgb Hct MCV RDW Plt Count Lymph % (Auto) [place] % (Auto) [place] # Seg Neutrophils % Seg Neuts % (Manual) Lymphocytes % (Manual) Monocytes % (Manual) Basophils % (Manual) Nucleated RBC % Seg Neutrophils # Seg Neutrophils # Man Lymphocytes # (Manual) Monocytes # (Manual) Eosinophils # (Manual) Basophils # (Manual) PT INR APTT Heparin Anti-Xa Level POC ABG pH POC ABG pCO2 POC ABG pO2 Sodium Potassium 5.6 H Chloride Carbon Dioxide 11 L BUN 77 H Creatinine 2.7 H Glucose 457 H POC Glucose > 500 H 424 H Calcium 8.0 L Phosphorus Magnesium AST Alkaline Phosphatase C-Reactive Protein Total Protein Albumin Lipase Vitamin B12 TSH Urine WBC (Auto) Urine Chloride Urine Total Protein Vancomycin Trough Crossmatch 10/13/16 10/13/16 10/13/16 10:44 11:22 12:20 WBC RBC Hgb Hct MCV RDW Plt Count Lymph % (Auto) [place] % (Auto) [place] # Seg Neutrophils % Seg Neuts % (Manual) Lymphocytes % (Manual) Monocytes % (Manual) Basophils % (Manual) Nucleated RBC % Seg Neutrophils # Seg Neutrophils # Man Lymphocytes # (Manual) Monocytes # (Manual) Eosinophils # (Manual) Basophils # (Manual) PT INR APTT Heparin Anti-Xa Level POC ABG pH POC ABG pCO2 POC ABG pO2 Sodium Potassium 5.4 H Chloride Carbon Dioxide 14 L BUN 72 H Creatinine 2.6 H Glucose 383 H POC Glucose 391 H 313 H Calcium 8.2 L Phosphorus Magnesium AST Alkaline Phosphatase C-Reactive Protein Total Protein Albumin Lipase Vitamin B12 TSH Urine WBC (Auto) Urine Chloride Urine Total Protein Vancomycin Trough Crossmatch 10/13/16 10/13/16 10/13/16 13:32 14:44 15:57 WBC RBC Hgb Hct MCV RDW Plt Count Lymph % (Auto) [place] % (Auto) [place] # Seg Neutrophils % Seg Neuts % (Manual) Lymphocytes % (Manual) Monocytes % (Manual) Basophils % (Manual) Nucleated RBC % Seg Neutrophils # Seg Neutrophils # Man Lymphocytes # (Manual) Monocytes # (Manual) Eosinophils # (Manual) Basophils # (Manual) PT INR APTT Heparin Anti-Xa Level POC ABG pH POC ABG pCO2 POC ABG pO2 Sodium Potassium Chloride Carbon Dioxide BUN Creatinine Glucose POC Glucose 296 H 210 H 190 H Calcium Phosphorus Magnesium AST Alkaline Phosphatase C-Reactive Protein Total Protein Albumin Lipase Vitamin B12 TSH Urine WBC (Auto) Urine Chloride Urine Total Protein Vancomycin Trough Crossmatch 10/13/16 10/13/16 10/13/16 16:14 16:14 17:17 WBC RBC Hgb Hct MCV RDW Plt Count Lymph % (Auto) [place] % (Auto) [place] # Seg Neutrophils % Seg Neuts % (Manual) Lymphocytes % (Manual) Monocytes % (Manual) Basophils % (Manual) Nucleated RBC % Seg Neutrophils # Seg Neutrophils # Man Lymphocytes # (Manual) Monocytes # (Manual) Eosinophils # (Manual) Basophils # (Manual) PT INR APTT Heparin Anti-Xa Level POC ABG pH POC ABG pCO2 POC ABG pO2 Sodium Potassium Chloride Carbon Dioxide 17 L BUN 58 H Creatinine 1.8 H Glucose 172 H POC Glucose 193 H Calcium 7.7 L Phosphorus Magnesium AST Alkaline Phosphatase C-Reactive Protein 10.50 H Total Protein Albumin Lipase Vitamin B12 TSH Urine WBC (Auto) Urine Chloride Urine Total Protein Vancomycin Trough Crossmatch 10/13/16 10/13/16 10/13/16 17:55 18:32 19:41 WBC RBC Hgb Hct MCV RDW Plt Count Lymph % (Auto) [place] % (Auto) [place] # Seg Neutrophils % Seg Neuts % (Manual) Lymphocytes % (Manual) Monocytes % (Manual) Basophils % (Manual) Nucleated RBC % Seg Neutrophils # Seg Neutrophils # Man Lymphocytes # (Manual) Monocytes # (Manual) Eosinophils # (Manual) Basophils # (Manual) PT INR APTT Heparin Anti-Xa Level POC ABG pH POC ABG pCO2 30.6 L POC ABG pO2 218 H Sodium Potassium Chloride Carbon Dioxide BUN Creatinine Glucose POC Glucose 192 H 177 H Calcium Phosphorus Magnesium AST Alkaline Phosphatase C-Reactive Protein Total Protein Albumin Lipase Vitamin B12 TSH Urine WBC (Auto) Urine Chloride Urine Total Protein Vancomycin Trough Crossmatch 10/13/16 10/13/16 10/13/16 20:54 22:07 23:13 WBC RBC Hgb Hct MCV RDW Plt Count Lymph % (Auto) [place] % (Auto) [place] # Seg Neutrophils % Seg Neuts % (Manual) Lymphocytes % (Manual) Monocytes % (Manual) Basophils % (Manual) Nucleated RBC % Seg Neutrophils # Seg Neutrophils # Man Lymphocytes # (Manual) Monocytes # (Manual) Eosinophils # (Manual) Basophils # (Manual) PT INR APTT Heparin Anti-Xa Level POC ABG pH POC ABG pCO2 POC ABG pO2 Sodium Potassium Chloride Carbon Dioxide BUN Creatinine Glucose POC Glucose 178 H 160 H 168 H Calcium Phosphorus Magnesium AST Alkaline Phosphatase C-Reactive Protein Total Protein Albumin Lipase Vitamin B12 TSH Urine WBC (Auto) Urine Chloride Urine Total Protein Vancomycin Trough Crossmatch 10/13/16 10/13/16 10/14/16 23:25 Unknown 00:21 WBC RBC Hgb Hct MCV RDW Plt Count Lymph % (Auto) [place] % (Auto) [place] # Seg Neutrophils % Seg Neuts % (Manual) Lymphocytes % (Manual) Monocytes % (Manual) Basophils % (Manual) Nucleated RBC % Seg Neutrophils # Seg Neutrophils # Man Lymphocytes # (Manual) Monocytes # (Manual) Eosinophils # (Manual) Basophils # (Manual) PT INR APTT Heparin Anti-Xa Level POC ABG pH POC ABG pCO2 POC ABG pO2 Sodium 148 H Potassium Chloride 114.6 H Carbon Dioxide 17 L BUN 56 H Creatinine 1.6 H Glucose 151 H POC Glucose 171 H Calcium 7.8 L Phosphorus Magnesium AST Alkaline Phosphatase C-Reactive Protein Total Protein Albumin Lipase Vitamin B12 TSH Urine WBC (Auto) Urine Chloride 10.0 L Urine Total Protein < 4 L Vancomycin Trough Crossmatch 10/14/16 10/14/16 10/14/16 01:22 02:29 03:30 WBC RBC Hgb Hct MCV RDW Plt Count Lymph % (Auto) [place] % (Auto) [place] # Seg Neutrophils % Seg Neuts % (Manual) Lymphocytes % (Manual) Monocytes % (Manual) Basophils % (Manual) Nucleated RBC % Seg Neutrophils # Seg Neutrophils # Man Lymphocytes # (Manual) Monocytes # (Manual) Eosinophils # (Manual) Basophils # (Manual) PT INR APTT Heparin Anti-Xa Level POC ABG pH POC ABG pCO2 POC ABG pO2 Sodium Potassium Chloride Carbon Dioxide BUN Creatinine Glucose POC Glucose 144 H 136 H 143 H Calcium Phosphorus Magnesium AST Alkaline Phosphatase C-Reactive Protein Total Protein Albumin Lipase Vitamin B12 TSH Urine WBC (Auto) Urine Chloride Urine Total Protein Vancomycin Trough Crossmatch 10/14/16 10/14/16 10/14/16 04:28 05:16 05:44 WBC RBC Hgb Hct MCV RDW Plt Count Lymph % (Auto) [place] % (Auto) [place] # Seg Neutrophils % Seg Neuts % (Manual) Lymphocytes % (Manual) Monocytes % (Manual) Basophils % (Manual) Nucleated RBC % Seg Neutrophils # Seg Neutrophils # Man Lymphocytes # (Manual) Monocytes # (Manual) Eosinophils # (Manual) Basophils # (Manual) PT INR APTT Heparin Anti-Xa Level POC ABG pH POC ABG pCO2 28.2 L POC ABG pO2 125 H Sodium Potassium Chloride Carbon Dioxide BUN Creatinine Glucose POC Glucose 133 H 160 H Calcium Phosphorus Magnesium AST Alkaline Phosphatase C-Reactive Protein Total Protein Albumin Lipase Vitamin B12 TSH Urine WBC (Auto) Urine Chloride Urine Total Protein Vancomycin Trough Crossmatch 10/14/16 10/14/16 10/14/16 06:12 06:45 07:03 WBC RBC Hgb Hct MCV RDW Plt Count Lymph % (Auto) [place] % (Auto) [place] # Seg Neutrophils % Seg Neuts % (Manual) Lymphocytes % (Manual) Monocytes % (Manual) Basophils % (Manual) Nucleated RBC % Seg Neutrophils # Seg Neutrophils # Man Lymphocytes # (Manual) Monocytes # (Manual) Eosinophils # (Manual) Basophils # (Manual) PT INR APTT Heparin Anti-Xa Level POC ABG pH POC ABG pCO2 POC ABG pO2 Sodium 149 H Potassium Chloride 115.4 H Carbon Dioxide 17 L BUN 45 H Creatinine 1.5 H Glucose 139 H POC Glucose 149 H Calcium 7.4 L Phosphorus 1.0 L D Magnesium AST Alkaline Phosphatase C-Reactive Protein Total Protein Albumin Lipase Vitamin B12 TSH Urine WBC (Auto) Urine Chloride Urine Total Protein Vancomycin Trough Crossmatch 10/14/16 10/14/16 10/14/16 07:03 08:02 09:16 WBC RBC Hgb Hct MCV RDW Plt Count Lymph % (Auto) [place] % (Auto) [place] # Seg Neutrophils % Seg Neuts % (Manual) Lymphocytes % (Manual) Monocytes % (Manual) Basophils % (Manual) Nucleated RBC % Seg Neutrophils # Seg Neutrophils # Man Lymphocytes # (Manual) Monocytes # (Manual) Eosinophils # (Manual) Basophils # (Manual) PT INR APTT Heparin Anti-Xa Level POC ABG pH POC ABG pCO2 POC ABG pO2 Sodium Potassium Chloride Carbon Dioxide BUN Creatinine Glucose POC Glucose 156 H 158 H Calcium Phosphorus Magnesium AST Alkaline Phosphatase C-Reactive Protein Total Protein Albumin Lipase 738 H Vitamin B12 TSH Urine WBC (Auto) Urine Chloride Urine Total Protein Vancomycin Trough Crossmatch 10/14/16 10/14/16 10/14/16 10:26 11:03 11:57 WBC RBC Hgb Hct MCV RDW Plt Count Lymph % (Auto) [place] % (Auto) [place] # Seg Neutrophils % Seg Neuts % (Manual) Lymphocytes % (Manual) Monocytes % (Manual) Basophils % (Manual) Nucleated RBC % Seg Neutrophils # Seg Neutrophils # Man Lymphocytes # (Manual) Monocytes # (Manual) Eosinophils # (Manual) Basophils # (Manual) PT INR APTT Heparin Anti-Xa Level POC ABG pH 7.198 L POC ABG pCO2 47.5 H POC ABG pO2 Sodium Potassium Chloride Carbon Dioxide BUN Creatinine Glucose POC Glucose 174 H 189 H Calcium Phosphorus Magnesium AST Alkaline Phosphatase C-Reactive Protein Total Protein Albumin Lipase Vitamin B12 TSH Urine WBC (Auto) Urine Chloride Urine Total Protein Vancomycin Trough Crossmatch 10/14/16 10/14/16 10/14/16 12:02 12:02 13:11 WBC 13.4 H RBC 3.60 L Hgb Hct MCV 98 H D RDW 13.1 L Plt Count Lymph % (Auto) [place] % (Auto) [place] # Seg Neutrophils % Seg Neuts % (Manual) Lymphocytes % (Manual) Monocytes % (Manual) Basophils % (Manual) Nucleated RBC % Seg Neutrophils # Seg Neutrophils # Man Lymphocytes # (Manual) Monocytes # (Manual) Eosinophils # (Manual) Basophils # (Manual) PT INR APTT Heparin Anti-Xa Level POC ABG pH POC ABG pCO2 POC ABG pO2 Sodium Potassium Chloride 110.7 H Carbon Dioxide 19 L BUN 38 H Creatinine 1.4 H Glucose 182 H POC Glucose 173 H Calcium 7.5 L Phosphorus Magnesium AST Alkaline Phosphatase C-Reactive Protein Total Protein Albumin Lipase Vitamin B12 TSH Urine WBC (Auto) Urine Chloride Urine Total Protein Vancomycin Trough Crossmatch 10/14/16 10/14/16 10/14/16 14:24 15:31 16:36 WBC RBC Hgb Hct MCV RDW Plt Count Lymph % (Auto) [place] % (Auto) [place] # Seg Neutrophils % Seg Neuts % (Manual) Lymphocytes % (Manual) Monocytes % (Manual) Basophils % (Manual) Nucleated RBC % Seg Neutrophils # Seg Neutrophils # Man Lymphocytes # (Manual) Monocytes # (Manual) Eosinophils # (Manual) Basophils # (Manual) PT INR APTT Heparin Anti-Xa Level POC ABG pH POC ABG pCO2 POC ABG pO2 Sodium Potassium Chloride Carbon Dioxide BUN Creatinine Glucose POC Glucose 123 H 124 H 156 H Calcium Phosphorus Magnesium AST Alkaline Phosphatase C-Reactive Protein Total Protein Albumin Lipase Vitamin B12 TSH Urine WBC (Auto) Urine Chloride Urine Total Protein Vancomycin Trough Crossmatch 10/14/16 10/14/16 10/14/16 17:43 19:00 20:08 WBC RBC Hgb Hct MCV RDW Plt Count Lymph % (Auto) [place] % (Auto) [place] # Seg Neutrophils % Seg Neuts % (Manual) Lymphocytes % (Manual) Monocytes % (Manual) Basophils % (Manual) Nucleated RBC % Seg Neutrophils # Seg Neutrophils # Man Lymphocytes # (Manual) Monocytes # (Manual) Eosinophils # (Manual) Basophils # (Manual) PT INR APTT Heparin Anti-Xa Level POC ABG pH POC ABG pCO2 POC ABG pO2 Sodium Potassium Chloride Carbon Dioxide BUN Creatinine Glucose POC Glucose 154 H 123 H 138 H Calcium Phosphorus Magnesium AST Alkaline Phosphatase C-Reactive Protein Total Protein Albumin Lipase Vitamin B12 TSH Urine WBC (Auto) Urine Chloride Urine Total Protein Vancomycin Trough Crossmatch 10/14/16 10/14/16 10/14/16 21:17 22:25 23:37 WBC RBC Hgb Hct MCV RDW Plt Count Lymph % (Auto) [place] % (Auto) [place] # Seg Neutrophils % Seg Neuts % (Manual) Lymphocytes % (Manual) Monocytes % (Manual) Basophils % (Manual) Nucleated RBC % Seg Neutrophils # Seg Neutrophils # Man Lymphocytes # (Manual) Monocytes # (Manual) Eosinophils # (Manual) Basophils # (Manual) PT INR APTT Heparin Anti-Xa Level POC ABG pH POC ABG pCO2 POC ABG pO2 Sodium Potassium Chloride Carbon Dioxide BUN Creatinine Glucose POC Glucose 148 H 132 H 137 H Calcium Phosphorus Magnesium AST Alkaline Phosphatase C-Reactive Protein Total Protein Albumin Lipase Vitamin B12 TSH Urine WBC (Auto) Urine Chloride Urine Total Protein Vancomycin Trough Crossmatch 10/15/16 10/15/16 10/15/16 00:49 01:53 03:06 WBC RBC Hgb Hct MCV RDW Plt Count Lymph % (Auto) [place] % (Auto) [place] # Seg Neutrophils % Seg Neuts % (Manual) Lymphocytes % (Manual) Monocytes % (Manual) Basophils % (Manual) Nucleated RBC % Seg Neutrophils # Seg Neutrophils # Man Lymphocytes # (Manual) Monocytes # (Manual) Eosinophils # (Manual) Basophils # (Manual) PT INR APTT Heparin Anti-Xa Level POC ABG pH POC ABG pCO2 POC ABG pO2 Sodium Potassium Chloride Carbon Dioxide BUN Creatinine Glucose POC Glucose 132 H 134 H 134 H Calcium Phosphorus Magnesium AST Alkaline Phosphatase C-Reactive Protein Total Protein Albumin Lipase Vitamin B12 TSH Urine WBC (Auto) Urine Chloride Urine Total Protein Vancomycin Trough Crossmatch 10/15/16 10/15/16 10/15/16 04:40 04:46 06:21 WBC RBC Hgb Hct MCV RDW Plt Count Lymph % (Auto) [place] % (Auto) [place] # Seg Neutrophils % Seg Neuts % (Manual) Lymphocytes % (Manual) Monocytes % (Manual) Basophils % (Manual) Nucleated RBC % Seg Neutrophils # Seg Neutrophils # Man Lymphocytes # (Manual) Monocytes # (Manual) Eosinophils # (Manual) Basophils # (Manual) PT INR APTT Heparin Anti-Xa Level POC ABG pH POC ABG pCO2 30.7 L POC ABG pO2 108 H Sodium Potassium Chloride 109.0 H Carbon Dioxide 17 L BUN 27 H Creatinine Glucose 124 H POC Glucose 160 H Calcium 7.5 L Phosphorus Magnesium AST 79 H Alkaline Phosphatase C-Reactive Protein Total Protein 5.5 L Albumin 3.0 L Lipase Vitamin B12 TSH Urine WBC (Auto) Urine Chloride Urine Total Protein Vancomycin Trough Crossmatch 10/15/16 10/15/16 10/15/16 07:12 08:01 09:03 WBC RBC Hgb Hct MCV RDW Plt Count Lymph % (Auto) [place] % (Auto) [place] # Seg Neutrophils % Seg Neuts % (Manual) Lymphocytes % (Manual) Monocytes % (Manual) Basophils % (Manual) Nucleated RBC % Seg Neutrophils # Seg Neutrophils # Man Lymphocytes # (Manual) Monocytes # (Manual) Eosinophils # (Manual) Basophils # (Manual) PT INR APTT Heparin Anti-Xa Level POC ABG pH POC ABG pCO2 POC ABG pO2 Sodium Potassium Chloride Carbon Dioxide BUN Creatinine Glucose POC Glucose 179 H 187 H 165 H Calcium Phosphorus Magnesium AST Alkaline Phosphatase C-Reactive Protein Total Protein Albumin Lipase Vitamin B12 TSH Urine WBC (Auto) Urine Chloride Urine Total Protein Vancomycin Trough Crossmatch 10/15/16 10/15/16 10/15/16 10:06 10:06 10:07 WBC 12.1 H RBC 3.01 L Hgb 9.7 L Hct 29.6 L MCV 98 H RDW Plt Count 129 L Lymph % (Auto) [place] % (Auto) [place] # Seg Neutrophils % Seg Neuts % (Manual) Lymphocytes % (Manual) Monocytes % (Manual) Basophils % (Manual) Nucleated RBC % Seg Neutrophils # Seg Neutrophils # Man Lymphocytes # (Manual) Monocytes # (Manual) Eosinophils # (Manual) Basophils # (Manual) PT INR APTT Heparin Anti-Xa Level POC ABG pH POC ABG pCO2 POC ABG pO2 Sodium Potassium 3.2 L D Chloride 109.6 H Carbon Dioxide 18 L BUN 22 H Creatinine Glucose 127 H POC Glucose 147 H Calcium 7.0 L Phosphorus Magnesium AST Alkaline Phosphatase C-Reactive Protein Total Protein Albumin Lipase Vitamin B12 TSH Urine WBC (Auto) Urine Chloride Urine Total Protein Vancomycin Trough Crossmatch 10/15/16 10/15/16 10/15/16 11:05 11:06 11:57 WBC RBC Hgb Hct MCV RDW Plt Count Lymph % (Auto) [place] % (Auto) [place] # Seg Neutrophils % Seg Neuts % (Manual) Lymphocytes % (Manual) Monocytes % (Manual) Basophils % (Manual) Nucleated RBC % Seg Neutrophils # Seg Neutrophils # Man Lymphocytes # (Manual) Monocytes # (Manual) Eosinophils # (Manual) Basophils # (Manual) PT INR APTT Heparin Anti-Xa Level POC ABG pH 7.305 L POC ABG pCO2 POC ABG pO2 Sodium Potassium Chloride Carbon Dioxide BUN Creatinine Glucose POC Glucose 145 H Calcium Phosphorus Magnesium AST Alkaline Phosphatase C-Reactive Protein Total Protein Albumin Lipase Vitamin B12 TSH Urine WBC (Auto) 7.0 H Urine Chloride Urine Total Protein Vancomycin Trough Crossmatch 10/15/16 10/15/1610/15/17 12:04 13:59 15:24 WBC RBC Hgb Hct MCV RDW Plt Count Lymph % (Auto) [place] % (Auto) [place] # Seg Neutrophils % Seg Neuts % (Manual) Lymphocytes % (Manual) Monocytes % (Manual) Basophils % (Manual) Nucleated RBC % Seg Neutrophils # Seg Neutrophils # Man Lymphocytes # (Manual) Monocytes # (Manual) Eosinophils # (Manual) Basophils # (Manual) PT INR APTT Heparin Anti-Xa Level POC ABG pH POC ABG pCO2 POC ABG pO2 Sodium Potassium Chloride Carbon Dioxide BUN Creatinine Glucose POC Glucose 123 H 147 H 153 H Calcium Phosphorus Magnesium AST Alkaline Phosphatase C-Reactive Protein Total Protein Albumin Lipase Vitamin B12 TSH Urine WBC (Auto) Urine Chloride Urine Total Protein Vancomycin Trough Crossmatch 10/15/16 10/15/16 10/15/16 16:30 17:34 18:30 WBC RBC Hgb Hct MCV RDW Plt Count Lymph % (Auto) [place] % (Auto) [place] # Seg Neutrophils % Seg Neuts % (Manual) Lymphocytes % (Manual) Monocytes % (Manual) Basophils % (Manual) Nucleated RBC % Seg Neutrophils # Seg Neutrophils # Man Lymphocytes # (Manual) Monocytes # (Manual) Eosinophils # (Manual) Basophils # (Manual) PT INR APTT Heparin Anti-Xa Level POC ABG pH POC ABG pCO2 POC ABG pO2 Sodium Potassium Chloride Carbon Dioxide BUN Creatinine Glucose POC Glucose 223 H 236 H 164 H Calcium Phosphorus Magnesium AST Alkaline Phosphatase C-Reactive Protein Total Protein Albumin Lipase Vitamin B12 TSH Urine WBC (Auto) Urine Chloride Urine Total Protein Vancomycin Trough Crossmatch 10/15/16 10/15/16 10/15/16 19:14 20:31 21:23 WBC RBC Hgb Hct MCV RDW Plt Count Lymph % (Auto) [place] % (Auto) [place] # Seg Neutrophils % Seg Neuts % (Manual) Lymphocytes % (Manual) Monocytes % (Manual) Basophils % (Manual) Nucleated RBC % Seg Neutrophils # Seg Neutrophils # Man Lymphocytes # (Manual) Monocytes # (Manual) Eosinophils # (Manual) Basophils # (Manual) PT INR APTT Heparin Anti-Xa Level POC ABG pH POC ABG pCO2 POC ABG pO2 Sodium Potassium Chloride Carbon Dioxide BUN Creatinine Glucose POC Glucose 138 H 158 H 158 H Calcium Phosphorus Magnesium AST Alkaline Phosphatase C-Reactive Protein Total Protein Albumin Lipase Vitamin B12 TSH Urine WBC (Auto) Urine Chloride Urine Total Protein Vancomycin Trough Crossmatch 10/15/16 10/15/16 10/16/16 22:04 22:57 00:11 WBC RBC Hgb Hct MCV RDW Plt Count Lymph % (Auto) [place] % (Auto) [place] # Seg Neutrophils % Seg Neuts % (Manual) Lymphocytes % (Manual) Monocytes % (Manual) Basophils % (Manual) Nucleated RBC % Seg Neutrophils # Seg Neutrophils # Man Lymphocytes # (Manual) Monocytes # (Manual) Eosinophils # (Manual) Basophils # (Manual) PT INR APTT Heparin Anti-Xa Level POC ABG pH POC ABG pCO2 POC ABG pO2 Sodium Potassium Chloride Carbon Dioxide BUN Creatinine Glucose POC Glucose 168 H 213 H 166 H Calcium Phosphorus Magnesium AST Alkaline Phosphatase C-Reactive Protein Total Protein Albumin Lipase Vitamin B12 TSH Urine WBC (Auto) Urine Chloride Urine Total Protein Vancomycin Trough Crossmatch 10/16/16 10/16/16 10/16/16 01:16 02:32 03:38 WBC RBC Hgb Hct MCV RDW Plt Count Lymph % (Auto) [place] % (Auto) [place] # Seg Neutrophils % Seg Neuts % (Manual) Lymphocytes % (Manual) Monocytes % (Manual) Basophils % (Manual) Nucleated RBC % Seg Neutrophils # Seg Neutrophils # Man Lymphocytes # (Manual) Monocytes # (Manual) Eosinophils # (Manual) Basophils # (Manual) PT INR APTT Heparin Anti-Xa Level POC ABG pH POC ABG pCO2 POC ABG pO2 Sodium Potassium Chloride Carbon Dioxide BUN Creatinine Glucose POC Glucose 171 H 164 H 147 H Calcium Phosphorus Magnesium AST Alkaline Phosphatase C-Reactive Protein Total Protein Albumin Lipase Vitamin B12 TSH Urine WBC (Auto) Urine Chloride Urine Total Protein Vancomycin Trough Crossmatch 10/16/16 10/16/16 10/16/16 04:14 04:14 04:49 WBC RBC Hgb Hct MCV RDW Plt Count Lymph % (Auto) [place] % (Auto) [place] # Seg Neutrophils % Seg Neuts % (Manual) Lymphocytes % (Manual) Monocytes % (Manual) Basophils % (Manual) Nucleated RBC % Seg Neutrophils # Seg Neutrophils # Man Lymphocytes # (Manual) Monocytes # (Manual) Eosinophils # (Manual) Basophils # (Manual) PT INR APTT Heparin Anti-Xa Level POC ABG pH POC ABG pCO2 POC ABG pO2 Sodium 147 H Potassium Chloride 110.9 H Carbon Dioxide 19 L BUN Creatinine Glucose 139 H POC Glucose 144 H Calcium 7.3 L Phosphorus 2.3 L Magnesium AST Alkaline Phosphatase C-Reactive Protein Total Protein Albumin Lipase 143 H Vitamin B12 TSH Urine WBC (Auto) Urine Chloride Urine Total Protein Vancomycin Trough Crossmatch 10/16/16 10/16/16 10/16/16 05:03 05:41 05:58 WBC 16.5 H RBC 3.36 L Hgb Hct MCV 98 H RDW 13.1 L Plt Count Lymph % (Auto) 8.5 L [place] % (Auto) 7.6 H [place] # 1.3 H Seg Neutrophils % 83.3 H Seg Neuts % (Manual) Lymphocytes % (Manual) Monocytes % (Manual) Basophils % (Manual) Nucleated RBC % Seg Neutrophils # 13.8 H Seg Neutrophils # Man Lymphocytes # (Manual) Monocytes # (Manual) Eosinophils # (Manual) Basophils # (Manual) PT INR APTT Heparin Anti-Xa Level POC ABG pH POC ABG pCO2 30.7 L POC ABG pO2 128 H Sodium Potassium Chloride Carbon Dioxide BUN Creatinine Glucose POC Glucose 131 H Calcium Phosphorus Magnesium AST Alkaline Phosphatase C-Reactive Protein Total Protein Albumin Lipase Vitamin B12 TSH Urine WBC (Auto) Urine Chloride Urine Total Protein Vancomycin Trough Crossmatch 10/16/16 10/16/16 10/16/16 06:32 09:27 09:35 WBC RBC Hgb Hct MCV RDW Plt Count Lymph % (Auto) [place] % (Auto) [place] # Seg Neutrophils % Seg Neuts % (Manual) Lymphocytes % (Manual) Monocytes % (Manual) Basophils % (Manual) Nucleated RBC % Seg Neutrophils # Seg Neutrophils # Man Lymphocytes # (Manual) Monocytes # (Manual) Eosinophils # (Manual) Basophils # (Manual) PT INR APTT Heparin Anti-Xa Level POC ABG pH POC ABG pCO2 32.8 L POC ABG pO2 137 H Sodium Potassium Chloride Carbon Dioxide BUN Creatinine Glucose POC Glucose 121 H 150 H Calcium Phosphorus Magnesium AST Alkaline Phosphatase C-Reactive Protein Total Protein Albumin Lipase Vitamin B12 TSH Urine WBC (Auto) Urine Chloride Urine Total Protein Vancomycin Trough Crossmatch 10/16/16 10/16/16 10/16/16 10:47 13:27 14:24 WBC RBC Hgb Hct MCV RDW Plt Count Lymph % (Auto) [place] % (Auto) [place] # Seg Neutrophils % Seg Neuts % (Manual) Lymphocytes % (Manual) Monocytes % (Manual) Basophils % (Manual) Nucleated RBC % Seg Neutrophils # Seg Neutrophils # Man Lymphocytes # (Manual) Monocytes # (Manual) Eosinophils # (Manual) Basophils # (Manual) PT INR APTT Heparin Anti-Xa Level POC ABG pH POC ABG pCO2 POC ABG pO2 Sodium Potassium Chloride Carbon Dioxide BUN Creatinine Glucose POC Glucose 184 H 171 H 174 H Calcium Phosphorus Magnesium AST Alkaline Phosphatase C-Reactive Protein Total Protein Albumin Lipase Vitamin B12 TSH Urine WBC (Auto) Urine Chloride Urine Total Protein Vancomycin Trough Crossmatch 10/16/16 10/16/16 10/16/16 15:48 16:26 18:17 WBC RBC Hgb Hct MCV RDW Plt Count Lymph % (Auto) [place] % (Auto) [place] # Seg Neutrophils % Seg Neuts % (Manual) Lymphocytes % (Manual) Monocytes % (Manual) Basophils % (Manual) Nucleated RBC % Seg Neutrophils # Seg Neutrophils # Man Lymphocytes # (Manual) Monocytes # (Manual) Eosinophils # (Manual) Basophils # (Manual) PT INR APTT Heparin Anti-Xa Level POC ABG pH POC ABG pCO2 POC ABG pO2 Sodium Potassium Chloride Carbon Dioxide BUN Creatinine Glucose POC Glucose 205 H 204 H 234 H Calcium Phosphorus Magnesium AST Alkaline Phosphatase C-Reactive Protein Total Protein Albumin Lipase Vitamin B12 TSH Urine WBC (Auto) Urine Chloride Urine Total Protein Vancomycin Trough Crossmatch 10/16/16 10/16/16 10/16/16 19:40 20:33 21:36 WBC RBC Hgb Hct MCV RDW Plt Count Lymph % (Auto) [place] % (Auto) [place] # Seg Neutrophils % Seg Neuts % (Manual) Lymphocytes % (Manual) Monocytes % (Manual) Basophils % (Manual) Nucleated RBC % Seg Neutrophils # Seg Neutrophils # Man Lymphocytes # (Manual) Monocytes # (Manual) Eosinophils # (Manual) Basophils # (Manual) PT INR APTT Heparin Anti-Xa Level POC ABG pH POC ABG pCO2 POC ABG pO2 Sodium Potassium Chloride Carbon Dioxide BUN Creatinine Glucose POC Glucose 167 H 153 H 158 H Calcium Phosphorus Magnesium AST Alkaline Phosphatase C-Reactive Protein Total Protein Albumin Lipase Vitamin B12 TSH Urine WBC (Auto) Urine Chloride Urine Total Protein Vancomycin Trough Crossmatch 10/16/16 10/16/16 10/17/16 22:54 23:48 00:47 WBC RBC Hgb Hct MCV RDW Plt Count Lymph % (Auto) [place] % (Auto) [place] # Seg Neutrophils % Seg Neuts % (Manual) Lymphocytes % (Manual) Monocytes % (Manual) Basophils % (Manual) Nucleated RBC % Seg Neutrophils # Seg Neutrophils # Man Lymphocytes # (Manual) Monocytes # (Manual) Eosinophils # (Manual) Basophils # (Manual) PT INR APTT Heparin Anti-Xa Level POC ABG pH POC ABG pCO2 POC ABG pO2 Sodium Potassium Chloride Carbon Dioxide BUN Creatinine Glucose POC Glucose 180 H 207 H 196 H Calcium Phosphorus Magnesium AST Alkaline Phosphatase C-Reactive Protein Total Protein Albumin Lipase Vitamin B12 TSH Urine WBC (Auto) Urine Chloride Urine Total Protein Vancomycin Trough Crossmatch 10/17/16 10/17/16 10/17/16 01:57 02:49 03:50 WBC RBC Hgb Hct MCV RDW Plt Count Lymph % (Auto) [place] % (Auto) [place] # Seg Neutrophils % Seg Neuts % (Manual) Lymphocytes % (Manual) Monocytes % (Manual) Basophils % (Manual) Nucleated RBC % Seg Neutrophils # Seg Neutrophils # Man Lymphocytes # (Manual) Monocytes # (Manual) Eosinophils # (Manual) Basophils # (Manual) PT INR APTT Heparin Anti-Xa Level POC ABG pH POC ABG pCO2 POC ABG pO2 Sodium Potassium Chloride Carbon Dioxide BUN Creatinine Glucose POC Glucose 180 H 151 H 106 H Calcium Phosphorus Magnesium AST Alkaline Phosphatase C-Reactive Protein Total Protein Albumin Lipase Vitamin B12 TSH Urine WBC (Auto) Urine Chloride Urine Total Protein Vancomycin Trough Crossmatch 10/17/16 10/17/16 10/17/16 04:59 06:03 06:35 WBC RBC Hgb Hct MCV RDW Plt Count Lymph % (Auto) [place] % (Auto) [place] # Seg Neutrophils % Seg Neuts % (Manual) Lymphocytes % (Manual) Monocytes % (Manual) Basophils % (Manual) Nucleated RBC % Seg Neutrophils # Seg Neutrophils # Man Lymphocytes # (Manual) Monocytes # (Manual) Eosinophils # (Manual) Basophils # (Manual) PT INR APTT Heparin Anti-Xa Level POC ABG pH 7.453 H POC ABG pCO2 30.1 L POC ABG pO2 111 H Sodium Potassium Chloride Carbon Dioxide BUN Creatinine Glucose POC Glucose 145 H 157 H Calcium Phosphorus Magnesium AST Alkaline Phosphatase C-Reactive Protein Total Protein Albumin Lipase Vitamin B12 TSH Urine WBC (Auto) Urine Chloride Urine Total Protein Vancomycin Trough Crossmatch 10/17/16 10/17/16 10/17/16 07:08 07:11 08:01 WBC RBC Hgb Hct MCV RDW Plt Count Lymph % (Auto) [place] % (Auto) [place] # Seg Neutrophils % Seg Neuts % (Manual) Lymphocytes % (Manual) Monocytes % (Manual) Basophils % (Manual) Nucleated RBC % Seg Neutrophils # Seg Neutrophils # Man Lymphocytes # (Manual) Monocytes # (Manual) Eosinophils # (Manual) Basophils # (Manual) PT INR APTT Heparin Anti-Xa Level POC ABG pH POC ABG pCO2 POC ABG pO2 Sodium 147 H Potassium Chloride 113.8 H Carbon Dioxide 19 L BUN Creatinine Glucose 136 H POC Glucose 136 H 152 H Calcium 7.7 L Phosphorus Magnesium AST Alkaline Phosphatase C-Reactive Protein Total Protein Albumin Lipase Vitamin B12 TSH Urine WBC (Auto) Urine Chloride Urine Total Protein Vancomycin Trough Crossmatch 10/17/16 10/17/16 10/17/16 08:23 09:17 09:53 WBC 18.1 H RBC 3.01 L Hgb 9.7 L Hct 29.4 L MCV 98 H RDW Plt Count 116 L Lymph % (Auto) [place] % (Auto) [place] # Seg Neutrophils % Seg Neuts % (Manual) 77.0 H Lymphocytes % (Manual) 4.0 L Monocytes % (Manual) 12.0 H Basophils % (Manual) Nucleated RBC % Seg Neutrophils # Seg Neutrophils # Man 13.9 H Lymphocytes # (Manual) 0.7 L Monocytes # (Manual) 2.2 H Eosinophils # (Manual) Basophils # (Manual) PT INR APTT Heparin Anti-Xa Level POC ABG pH POC ABG pCO2 POC ABG pO2 Sodium Potassium Chloride Carbon Dioxide BUN Creatinine Glucose POC Glucose 148 H 137 H Calcium Phosphorus Magnesium AST Alkaline Phosphatase C-Reactive Protein Total Protein Albumin Lipase Vitamin B12 TSH Urine WBC (Auto) Urine Chloride Urine Total Protein Vancomycin Trough Crossmatch 10/17/16 10/17/16 10/17/16 11:43 16:07 17:42 WBC RBC Hgb Hct MCV RDW Plt Count Lymph % (Auto) [place] % (Auto) [place] # Seg Neutrophils % Seg Neuts % (Manual) Lymphocytes % (Manual) Monocytes % (Manual) Basophils % (Manual) Nucleated RBC % Seg Neutrophils # Seg Neutrophils # Man Lymphocytes # (Manual) Monocytes # (Manual) Eosinophils # (Manual) Basophils # (Manual) PT 16.4 H INR 1.33 H APTT 38.8 H Heparin Anti-Xa Level POC ABG pH POC ABG pCO2 POC ABG pO2 Sodium Potassium Chloride Carbon Dioxide BUN Creatinine Glucose POC Glucose 179 H 153 H Calcium Phosphorus Magnesium AST Alkaline Phosphatase C-Reactive Protein Total Protein Albumin Lipase Vitamin B12 TSH Urine WBC (Auto) Urine Chloride Urine Total Protein Vancomycin Trough Crossmatch 10/17/16 10/18/16 10/18/16 22:54 04:37 05:39 WBC RBC Hgb Hct MCV RDW Plt Count Lymph % (Auto) [place] % (Auto) [place] # Seg Neutrophils % Seg Neuts % (Manual) Lymphocytes % (Manual) Monocytes % (Manual) Basophils % (Manual) Nucleated RBC % Seg Neutrophils # Seg Neutrophils # Man Lymphocytes # (Manual) Monocytes # (Manual) Eosinophils # (Manual) Basophils # (Manual) PT INR APTT Heparin Anti-Xa Level 0.27 L POC ABG pH 7.454 H POC ABG pCO2 30.8 L POC ABG pO2 115 H Sodium Potassium Chloride Carbon Dioxide BUN Creatinine Glucose POC Glucose 69 L Calcium Phosphorus Magnesium AST Alkaline Phosphatase C-Reactive Protein Total Protein Albumin Lipase Vitamin B12 TSH Urine WBC (Auto) Urine Chloride Urine Total Protein Vancomycin Trough Crossmatch 10/18/16 10/18/16 10/18/16 06:46 06:46 06:46 WBC 20.5 H RBC 2.62 L Hgb 8.4 L Hct 26.0 L MCV 100 H RDW Plt Count Lymph % (Auto) [place] % (Auto) [place] # Seg Neutrophils % Seg Neuts % (Manual) 75.0 H Lymphocytes % (Manual) 9.0 L Monocytes % (Manual) 14.0 H Basophils % (Manual) Nucleated RBC % Seg Neutrophils # Seg Neutrophils # Man 15.4 H Lymphocytes # (Manual) Monocytes # (Manual) 2.9 H Eosinophils # (Manual) Basophils # (Manual) PT INR APTT Heparin Anti-Xa Level POC ABG pH POC ABG pCO2 POC ABG pO2 Sodium Potassium Chloride 110.6 H Carbon Dioxide BUN Creatinine 1.3 H Glucose 153 H POC Glucose Calcium 8.0 L Phosphorus Magnesium 1.6 L AST Alkaline Phosphatase C-Reactive Protein Total Protein Albumin Lipase Vitamin B12 TSH Urine WBC (Auto) Urine Chloride Urine Total Protein Vancomycin Trough Crossmatch 10/18/16 10/18/16 10/18/16 07:30 11:37 17:51 WBC RBC Hgb Hct MCV RDW Plt Count Lymph % (Auto) [place] % (Auto) [place] # Seg Neutrophils % Seg Neuts % (Manual) Lymphocytes % (Manual) Monocytes % (Manual) Basophils % (Manual) Nucleated RBC % Seg Neutrophils # Seg Neutrophils # Man Lymphocytes # (Manual) Monocytes # (Manual) Eosinophils # (Manual) Basophils # (Manual) PT INR APTT Heparin Anti-Xa Level POC ABG pH POC ABG pCO2 POC ABG pO2 Sodium Potassium Chloride Carbon Dioxide BUN Creatinine Glucose POC Glucose 162 H 156 H 164 H Calcium Phosphorus Magnesium AST Alkaline Phosphatase C-Reactive Protein Total Protein Albumin Lipase Vitamin B12 TSH Urine WBC (Auto) Urine Chloride Urine Total Protein Vancomycin Trough Crossmatch 10/18/16 10/19/16 10/19/16 23:44 03:59 05:13 WBC 18.2 H RBC 2.76 L Hgb 9.0 L Hct 27.7 L MCV 100 H RDW Plt Count Lymph % (Auto) [place] % (Auto) [place] # Seg Neutrophils % Seg Neuts % (Manual) 76.0 H Lymphocytes % (Manual) 10.0 L Monocytes % (Manual) Basophils % (Manual) Nucleated RBC % Seg Neutrophils # Seg Neutrophils # Man 13.8 H Lymphocytes # (Manual) Monocytes # (Manual) Eosinophils # (Manual) Basophils # (Manual) PT INR APTT Heparin Anti-Xa Level POC ABG pH POC ABG pCO2 32.2 L POC ABG pO2 128 H Sodium Potassium Chloride Carbon Dioxide BUN Creatinine Glucose POC Glucose 278 H Calcium Phosphorus Magnesium AST Alkaline Phosphatase C-Reactive Protein Total Protein Albumin Lipase Vitamin B12 TSH Urine WBC (Auto) Urine Chloride Urine Total Protein Vancomycin Trough Crossmatch 10/19/16 10/19/16 10/19/16 06:01 06:30 12:20 WBC RBC Hgb Hct MCV RDW Plt Count Lymph % (Auto) [place] % (Auto) [place] # Seg Neutrophils % Seg Neuts % (Manual) Lymphocytes % (Manual) Monocytes % (Manual) Basophils % (Manual) Nucleated RBC % Seg Neutrophils # Seg Neutrophils # Man Lymphocytes # (Manual) Monocytes # (Manual) Eosinophils # (Manual) Basophils # (Manual) PT INR APTT Heparin Anti-Xa Level POC ABG pH POC ABG pCO2 POC ABG pO2 Sodium Potassium Chloride Carbon Dioxide 18 L BUN Creatinine 1.3 H Glucose 262 H POC Glucose 261 H 349 H Calcium 7.7 L Phosphorus 4.8 H D Magnesium AST Alkaline Phosphatase C-Reactive Protein Total Protein Albumin Lipase Vitamin B12 TSH Urine WBC (Auto) Urine Chloride Urine Total Protein Vancomycin Trough Crossmatch 10/19/16 10/20/16 10/20/16 16:48 00:17 05:20 WBC 22.5 H RBC 2.80 L Hgb 8.9 L Hct 28.3 L MCV 101 H RDW Plt Count Lymph % (Auto) [place] % (Auto) [place] # Seg Neutrophils % Seg Neuts % (Manual) Lymphocytes % (Manual) 10.0 L Monocytes % (Manual) Basophils % (Manual) Nucleated RBC % Seg Neutrophils # Seg Neutrophils # Man 13.3 H Lymphocytes # (Manual) Monocytes # (Manual) 1.1 H Eosinophils # (Manual) 0.7 H Basophils # (Manual) PT INR APTT Heparin Anti-Xa Level POC ABG pH POC ABG pCO2 POC ABG pO2 Sodium Potassium Chloride Carbon Dioxide BUN Creatinine Glucose POC Glucose 248 H 346 H Calcium Phosphorus Magnesium AST Alkaline Phosphatase C-Reactive Protein Total Protein Albumin Lipase Vitamin B12 TSH Urine WBC (Auto) Urine Chloride Urine Total Protein Vancomycin Trough Crossmatch 10/20/16 10/20/16 10/20/16 05:20 05:20 06:05 WBC RBC Hgb Hct MCV RDW Plt Count Lymph % (Auto) [place] % (Auto) [place] # Seg Neutrophils % Seg Neuts % (Manual) Lymphocytes % (Manual) Monocytes % (Manual) Basophils % (Manual) Nucleated RBC % Seg Neutrophils # Seg Neutrophils # Man Lymphocytes # (Manual) Monocytes # (Manual) Eosinophils # (Manual) Basophils # (Manual) PT INR APTT Heparin Anti-Xa Level 0.20 L POC ABG pH POC ABG pCO2 POC ABG pO2 Sodium Potassium Chloride Carbon Dioxide BUN 20 H Creatinine Glucose 374 H POC Glucose 337 H Calcium 8.3 L Phosphorus Magnesium AST Alkaline Phosphatase C-Reactive Protein Total Protein Albumin Lipase Vitamin B12 TSH Urine WBC (Auto) Urine Chloride Urine Total Protein Vancomycin Trough Crossmatch 10/20/16 10/20/16 10/20/16 11:49 13:59 17:56 WBC RBC Hgb Hct MCV RDW Plt Count Lymph % (Auto) [place] % (Auto) [place] # Seg Neutrophils % Seg Neuts % (Manual) Lymphocytes % (Manual) Monocytes % (Manual) Basophils % (Manual) Nucleated RBC % Seg Neutrophils # Seg Neutrophils # Man Lymphocytes # (Manual) Monocytes # (Manual) Eosinophils # (Manual) Basophils # (Manual) PT INR APTT Heparin Anti-Xa Level 2.00 H POC ABG pH POC ABG pCO2 POC ABG pO2 Sodium Potassium Chloride Carbon Dioxide BUN Creatinine Glucose POC Glucose 305 H 362 H Calcium Phosphorus Magnesium AST Alkaline Phosphatase C-Reactive Protein Total Protein Albumin Lipase Vitamin B12 TSH Urine WBC (Auto) Urine Chloride Urine Total Protein Vancomycin Trough Crossmatch 10/20/16 10/21/16 10/21/16 23:52 05:00 05:49 WBC 22.9 H RBC 2.49 L Hgb 7.7 L Hct 25.6 L MCV 103 H RDW Plt Count Lymph % (Auto) [place] % (Auto) [place] # Seg Neutrophils % Seg Neuts % (Manual) 94.0 H Lymphocytes % (Manual) 1.0 L Monocytes % (Manual) Basophils % (Manual) Nucleated RBC % Seg Neutrophils # Seg Neutrophils # Man 21.5 H Lymphocytes # (Manual) 0.2 L Monocytes # (Manual) 1.1 H Eosinophils # (Manual) Basophils # (Manual) PT INR APTT Heparin Anti-Xa Level POC ABG pH POC ABG pCO2 POC ABG pO2 Sodium Potassium Chloride Carbon Dioxide BUN Creatinine Glucose POC Glucose 252 H 180 H Calcium Phosphorus Magnesium AST Alkaline Phosphatase C-Reactive Protein Total Protein Albumin Lipase Vitamin B12 TSH Urine WBC (Auto) Urine Chloride Urine Total Protein Vancomycin Trough Crossmatch 10/21/16 10/21/16 10/21/16 11:47 11:49 14:10 WBC RBC Hgb Hct MCV RDW Plt Count Lymph % (Auto) [place] % (Auto) [place] # Seg Neutrophils % Seg Neuts % (Manual) Lymphocytes % (Manual) Monocytes % (Manual) Basophils % (Manual) Nucleated RBC % Seg Neutrophils # Seg Neutrophils # Man Lymphocytes # (Manual) Monocytes # (Manual) Eosinophils # (Manual) Basophils # (Manual) PT INR APTT Heparin Anti-Xa Level POC ABG pH POC ABG pCO2 POC ABG pO2 Sodium Potassium Chloride Carbon Dioxide BUN Creatinine Glucose POC Glucose 50 L 56 L 140 H Calcium Phosphorus Magnesium AST Alkaline Phosphatase C-Reactive Protein Total Protein Albumin Lipase Vitamin B12 TSH Urine WBC (Auto) Urine Chloride Urine Total Protein Vancomycin Trough Crossmatch 10/21/16 10/21/16 10/22/16 18:24 Unknown 00:07 WBC RBC Hgb Hct MCV RDW Plt Count Lymph % (Auto) [place] % (Auto) [place] # Seg Neutrophils % Seg Neuts % (Manual) Lymphocytes % (Manual) Monocytes % (Manual) Basophils % (Manual) Nucleated RBC % Seg Neutrophils # Seg Neutrophils # Man Lymphocytes # (Manual) Monocytes # (Manual) Eosinophils # (Manual) Basophils # (Manual) PT INR APTT Heparin Anti-Xa Level POC ABG pH POC ABG pCO2 POC ABG pO2 Sodium 150 H Potassium 3.1 L Chloride 112.4 H Carbon Dioxide BUN 25 H Creatinine 1.4 H Glucose POC Glucose 175 H 218 H Calcium 8.0 L Phosphorus Magnesium AST Alkaline Phosphatase C-Reactive Protein Total Protein Albumin Lipase Vitamin B12 TSH Urine WBC (Auto) Urine Chloride Urine Total Protein Vancomycin Trough Crossmatch 10/22/16 10/22/16 10/22/16 04:20 04:20 10:25 WBC 20.8 H RBC 2.37 L Hgb 7.5 L Hct 23.9 L MCV 101 H RDW Plt Count Lymph % (Auto) [place] % (Auto) [place] # Seg Neutrophils % Seg Neuts % (Manual) 89.0 H Lymphocytes % (Manual) 7.0 L Monocytes % (Manual) Basophils % (Manual) Nucleated RBC % Seg Neutrophils # Seg Neutrophils # Man 18.5 H Lymphocytes # (Manual) Monocytes # (Manual) Eosinophils # (Manual) Basophils # (Manual) 0.2 H PT INR APTT Heparin Anti-Xa Level POC ABG pH POC ABG pCO2 POC ABG pO2 Sodium 148 H Potassium 2.9 L* Chloride 109.4 H Carbon Dioxide BUN 26 H Creatinine Glucose 140 H POC Glucose Calcium 7.5 L Phosphorus Magnesium AST Alkaline Phosphatase C-Reactive Protein Total Protein Albumin Lipase Vitamin B12 976.8 H TSH Urine WBC (Auto) Urine Chloride Urine Total Protein Vancomycin Trough Crossmatch 10/22/16 10/22/16 10/22/16 10:25 14:50 18:16 WBC RBC Hgb Hct MCV RDW Plt Count Lymph % (Auto) [place] % (Auto) [place] # Seg Neutrophils % Seg Neuts % (Manual) Lymphocytes % (Manual) Monocytes % (Manual) Basophils % (Manual) Nucleated RBC % Seg Neutrophils # Seg Neutrophils # Man Lymphocytes # (Manual) Monocytes # (Manual) Eosinophils # (Manual) Basophils # (Manual) PT INR APTT Heparin Anti-Xa Level POC ABG pH POC ABG pCO2 POC ABG pO2 Sodium Potassium Chloride Carbon Dioxide BUN Creatinine Glucose POC Glucose 193 H Calcium Phosphorus Magnesium AST Alkaline Phosphatase C-Reactive Protein Total Protein Albumin Lipase Vitamin B12 TSH 0.143 L 0.162 L Urine WBC (Auto) Urine Chloride Urine Total Protein Vancomycin Trough Crossmatch 10/22/16 10/22/16 10/22/16 20:00 20:00 20:00 WBC 24.1 H RBC 2.58 L Hgb 8.2 L Hct 26.4 L MCV 102 H RDW Plt Count Lymph % (Auto) [place] % (Auto) [place] # Seg Neutrophils % Seg Neuts % (Manual) 74.0 H Lymphocytes % (Manual) 7.0 L Monocytes % (Manual) Basophils % (Manual) Nucleated RBC % Seg Neutrophils # Seg Neutrophils # Man 17.8 H Lymphocytes # (Manual) Monocytes # (Manual) Eosinophils # (Manual) Basophils # (Manual) PT INR APTT Heparin Anti-Xa Level 1.92 H POC ABG pH POC ABG pCO2 POC ABG pO2 Sodium Potassium Chloride Carbon Dioxide BUN Creatinine Glucose POC Glucose Calcium Phosphorus Magnesium AST Alkaline Phosphatase C-Reactive Protein Total Protein Albumin Lipase Vitamin B12 TSH Urine WBC (Auto) Urine Chloride Urine Total Protein Vancomycin Trough Crossmatch See Detail 10/23/16 10/23/16 10/23/16 00:21 06:09 12:07 WBC RBC Hgb Hct MCV RDW Plt Count Lymph % (Auto) [place] % (Auto) [place] # Seg Neutrophils % Seg Neuts % (Manual) Lymphocytes % (Manual) Monocytes % (Manual) Basophils % (Manual) Nucleated RBC % Seg Neutrophils # Seg Neutrophils # Man Lymphocytes # (Manual) Monocytes # (Manual) Eosinophils # (Manual) Basophils # (Manual) PT INR APTT Heparin Anti-Xa Level POC ABG pH POC ABG pCO2 POC ABG pO2 Sodium Potassium Chloride Carbon Dioxide BUN Creatinine Glucose POC Glucose 283 H 241 H 340 H Calcium Phosphorus Magnesium AST Alkaline Phosphatase C-Reactive Protein Total Protein Albumin Lipase Vitamin B12 TSH Urine WBC (Auto) Urine Chloride Urine Total Protein Vancomycin Trough Crossmatch 10/23/16 10/23/16 10/23/16 14:01 16:00 17:59 WBC RBC Hgb Hct MCV RDW Plt Count Lymph % (Auto) [place] % (Auto) [place] # Seg Neutrophils % Seg Neuts % (Manual) Lymphocytes % (Manual) Monocytes % (Manual) Basophils % (Manual) Nucleated RBC % Seg Neutrophils # Seg Neutrophils # Man Lymphocytes # (Manual) Monocytes # (Manual) Eosinophils # (Manual) Basophils # (Manual) PT INR APTT Heparin Anti-Xa Level 0.19 L POC ABG pH POC ABG pCO2 32.4 L POC ABG pO2 Sodium Potassium Chloride Carbon Dioxide BUN Creatinine Glucose POC Glucose 245 H Calcium Phosphorus Magnesium AST Alkaline Phosphatase C-Reactive Protein Total Protein Albumin Lipase Vitamin B12 TSH Urine WBC (Auto) Urine Chloride Urine Total Protein Vancomycin Trough Crossmatch 10/23/16 10/23/16 10/23/16 22:55 Unknown Unknown WBC 22.6 H RBC 3.26 L Hgb Hct MCV RDW 17.1 H Plt Count Lymph % (Auto) [place] % (Auto) [place] # Seg Neutrophils % Seg Neuts % (Manual) Lymphocytes % (Manual) 11.0 L Monocytes % (Manual) Basophils % (Manual) Nucleated RBC % Seg Neutrophils # Seg Neutrophils # Man 14.0 H Lymphocytes # (Manual) Monocytes # (Manual) Eosinophils # (Manual) Basophils # (Manual) PT INR APTT Heparin Anti-Xa Level 0.17 L 0.15 L POC ABG pH POC ABG pCO2 POC ABG pO2 Sodium Potassium Chloride Carbon Dioxide BUN Creatinine Glucose POC Glucose Calcium Phosphorus Magnesium AST Alkaline Phosphatase C-Reactive Protein Total Protein Albumin Lipase Vitamin B12 TSH Urine WBC (Auto) Urine Chloride Urine Total Protein Vancomycin Trough Crossmatch 10/23/16 10/24/16 10/24/16 Unknown 00:05 05:30 WBC RBC Hgb Hct MCV RDW Plt Count Lymph % (Auto) [place] % (Auto) [place] # Seg Neutrophils % Seg Neuts % (Manual) Lymphocytes % (Manual) Monocytes % (Manual) Basophils % (Manual) Nucleated RBC % Seg Neutrophils # Seg Neutrophils # Man Lymphocytes # (Manual) Monocytes # (Manual) Eosinophils # (Manual) Basophils # (Manual) PT INR APTT Heparin Anti-Xa Level 0.13 L POC ABG pH POC ABG pCO2 POC ABG pO2 Sodium Potassium Chloride 111.2 H Carbon Dioxide 20 L BUN 25 H Creatinine Glucose 227 H POC Glucose 118 H Calcium 7.1 L Phosphorus Magnesium AST Alkaline Phosphatase C-Reactive Protein Total Protein Albumin Lipase Vitamin B12 TSH Urine WBC (Auto) Urine Chloride Urine Total Protein Vancomycin Trough Crossmatch 10/24/16 10/24/16 10/24/16 11:00 11:00 12:06 WBC 17.6 H RBC 2.92 L Hgb 9.2 L Hct 28.3 L MCV RDW 16.9 H Plt Count Lymph % (Auto) [place] % (Auto) [place] # Seg Neutrophils % Seg Neuts % (Manual) Lymphocytes % (Manual) Monocytes % (Manual) Basophils % (Manual) Nucleated RBC % Seg Neutrophils # Seg Neutrophils # Man Lymphocytes # (Manual) Monocytes # (Manual) Eosinophils # (Manual) Basophils # (Manual) PT INR APTT Heparin Anti-Xa Level 0.27 L POC ABG pH POC ABG pCO2 POC ABG pO2 Sodium Potassium Chloride Carbon Dioxide BUN Creatinine Glucose POC Glucose 166 H Calcium Phosphorus Magnesium AST Alkaline Phosphatase C-Reactive Protein Total Protein Albumin Lipase Vitamin B12 TSH Urine WBC (Auto) Urine Chloride Urine Total Protein Vancomycin Trough Crossmatch 10/24/16 10/25/16 10/25/16 12:27 00:49 03:30 WBC RBC Hgb 8.8 L Hct 28.1 L MCV RDW Plt Count Lymph % (Auto) [place] % (Auto) [place] # Seg Neutrophils % Seg Neuts % (Manual) Lymphocytes % (Manual) Monocytes % (Manual) Basophils % (Manual) Nucleated RBC % Seg Neutrophils # Seg Neutrophils # Man Lymphocytes # (Manual) Monocytes # (Manual) Eosinophils # (Manual) Basophils # (Manual) PT INR APTT Heparin Anti-Xa Level POC ABG pH POC ABG pCO2 33.9 L POC ABG pO2 Sodium Potassium Chloride Carbon Dioxide BUN Creatinine Glucose POC Glucose 121 H Calcium Phosphorus Magnesium AST Alkaline Phosphatase C-Reactive Protein Total Protein Albumin Lipase Vitamin B12 TSH Urine WBC (Auto) Urine Chloride Urine Total Protein Vancomycin Trough Crossmatch 10/25/16 10/25/16 10/25/16 09:49 12:10 19:25 WBC 21.1 H RBC 3.02 L Hgb 9.3 L Hct 28.9 L MCV RDW 16.3 H Plt Count Lymph % (Auto) [place] % (Auto) [place] # Seg Neutrophils % Seg Neuts % (Manual) 81.0 H Lymphocytes % (Manual) 9.0 L Monocytes % (Manual) Basophils % (Manual) Nucleated RBC % Seg Neutrophils # Seg Neutrophils # Man 17.1 H Lymphocytes # (Manual) Monocytes # (Manual) Eosinophils # (Manual) Basophils # (Manual) PT INR APTT Heparin Anti-Xa Level POC ABG pH POC ABG pCO2 POC ABG pO2 Sodium Potassium Chloride Carbon Dioxide BUN Creatinine Glucose POC Glucose 158 H 151 H Calcium Phosphorus Magnesium AST Alkaline Phosphatase C-Reactive Protein Total Protein Albumin Lipase Vitamin B12 TSH Urine WBC (Auto) Urine Chloride Urine Total Protein Vancomycin Trough Crossmatch 10/26/16 10/26/16 10/26/16 00:20 01:09 05:02 WBC 22.2 H RBC 2.89 L Hgb 8.7 L Hct 27.8 L MCV RDW 16.4 H Plt Count Lymph % (Auto) [place] % (Auto) [place] # Seg Neutrophils % Seg Neuts % (Manual) Lymphocytes % (Manual) Monocytes % (Manual) Basophils % (Manual) Nucleated RBC % Seg Neutrophils # Seg Neutrophils # Man Lymphocytes # (Manual) Monocytes # (Manual) Eosinophils # (Manual) Basophils # (Manual) PT INR APTT Heparin Anti-Xa Level POC ABG pH POC ABG pCO2 POC ABG pO2 Sodium Potassium Chloride Carbon Dioxide BUN Creatinine Glucose POC Glucose 44 L 112 H Calcium Phosphorus Magnesium AST Alkaline Phosphatase C-Reactive Protein Total Protein Albumin Lipase Vitamin B12 TSH Urine WBC (Auto) Urine Chloride Urine Total Protein Vancomycin Trough Crossmatch 10/26/16 10/26/16 10/26/16 05:02 12:11 12:14 WBC RBC Hgb Hct MCV RDW Plt Count Lymph % (Auto) [place] % (Auto) [place] # Seg Neutrophils % Seg Neuts % (Manual) Lymphocytes % (Manual) Monocytes % (Manual) Basophils % (Manual) Nucleated RBC % Seg Neutrophils # Seg Neutrophils # Man Lymphocytes # (Manual) Monocytes # (Manual) Eosinophils # (Manual) Basophils # (Manual) PT INR APTT Heparin Anti-Xa Level POC ABG pH POC ABG pCO2 32.0 L POC ABG pO2 33 L Sodium Potassium 3.2 L D Chloride Carbon Dioxide 20 L BUN 24 H Creatinine Glucose 104 H POC Glucose 194 H Calcium 7.7 L Phosphorus Magnesium AST Alkaline Phosphatase C-Reactive Protein Total Protein Albumin Lipase Vitamin B12 TSH Urine WBC (Auto) Urine Chloride Urine Total Protein Vancomycin Trough Crossmatch 10/26/16 10/26/16 10/27/16 15:28 17:23 00:04 WBC RBC Hgb Hct MCV RDW Plt Count Lymph % (Auto) [place] % (Auto) [place] # Seg Neutrophils % Seg Neuts % (Manual) Lymphocytes % (Manual) Monocytes % (Manual) Basophils % (Manual) Nucleated RBC % Seg Neutrophils # Seg Neutrophils # Man Lymphocytes # (Manual) Monocytes # (Manual) Eosinophils # (Manual) Basophils # (Manual) PT INR APTT Heparin Anti-Xa Level POC ABG pH POC ABG pCO2 33.7 L POC ABG pO2 Sodium Potassium Chloride Carbon Dioxide BUN Creatinine Glucose POC Glucose 181 H 230 H Calcium Phosphorus Magnesium AST Alkaline Phosphatase C-Reactive Protein Total Protein Albumin Lipase Vitamin B12 TSH Urine WBC (Auto) Urine Chloride Urine Total Protein Vancomycin Trough Crossmatch 10/27/16 10/27/16 10/27/16 05:15 05:15 05:38 WBC 25.5 H RBC 3.07 L Hgb 9.4 L Hct 30.1 L MCV 98 H RDW 16.4 H Plt Count 527 H Lymph % (Auto) [place] % (Auto) [place] # Seg Neutrophils % Seg Neuts % (Manual) Lymphocytes % (Manual) Monocytes % (Manual) Basophils % (Manual) Nucleated RBC % Seg Neutrophils # Seg Neutrophils # Man Lymphocytes # (Manual) Monocytes # (Manual) Eosinophils # (Manual) Basophils # (Manual) PT INR APTT Heparin Anti-Xa Level POC ABG pH POC ABG pCO2 POC ABG pO2 Sodium Potassium Chloride Carbon Dioxide 19 L BUN 23 H Creatinine Glucose 160 H POC Glucose 168 H Calcium 8.0 L Phosphorus Magnesium AST Alkaline Phosphatase C-Reactive Protein Total Protein Albumin Lipase Vitamin B12 TSH Urine WBC (Auto) Urine Chloride Urine Total Protein Vancomycin Trough Crossmatch 10/27/16 10/27/16 10/27/16 11:59 18:35 23:48 WBC RBC Hgb Hct MCV RDW Plt Count Lymph % (Auto) [place] % (Auto) [place] # Seg Neutrophils % Seg Neuts % (Manual) Lymphocytes % (Manual) Monocytes % (Manual) Basophils % (Manual) Nucleated RBC % Seg Neutrophils # Seg Neutrophils # Man Lymphocytes # (Manual) Monocytes # (Manual) Eosinophils # (Manual) Basophils # (Manual) PT INR APTT Heparin Anti-Xa Level POC ABG pH POC ABG pCO2 POC ABG pO2 Sodium Potassium Chloride Carbon Dioxide BUN Creatinine Glucose POC Glucose 197 H 318 H 316 H Calcium Phosphorus Magnesium AST Alkaline Phosphatase C-Reactive Protein Total Protein Albumin Lipase Vitamin B12 TSH Urine WBC (Auto) Urine Chloride Urine Total Protein Vancomycin Trough Crossmatch 10/28/16 10/28/16 10/28/16 03:13 04:10 04:10 WBC 18.8 H RBC 2.64 L Hgb 8.1 L Hct 26.1 L MCV 99 H RDW 16.2 H Plt Count 544 H Lymph % (Auto) [place] % (Auto) [place] # Seg Neutrophils % Seg Neuts % (Manual) Lymphocytes % (Manual) Monocytes % (Manual) Basophils % (Manual) Nucleated RBC % Seg Neutrophils # Seg Neutrophils # Man Lymphocytes # (Manual) Monocytes # (Manual) Eosinophils # (Manual) Basophils # (Manual) PT INR APTT Heparin Anti-Xa Level POC ABG pH POC ABG pCO2 POC ABG pO2 Sodium Potassium Chloride Carbon Dioxide 21 L BUN 24 H Creatinine Glucose 302 H POC Glucose 304 H Calcium 7.7 L Phosphorus Magnesium AST Alkaline Phosphatase C-Reactive Protein Total Protein Albumin Lipase Vitamin B12 TSH Urine WBC (Auto) Urine Chloride Urine Total Protein Vancomycin Trough Crossmatch 10/28/16 10/28/16 10/28/16 04:10 12:36 18:27 WBC RBC Hgb Hct MCV RDW Plt Count Lymph % (Auto) [place] % (Auto) [place] # Seg Neutrophils % Seg Neuts % (Manual) Lymphocytes % (Manual) Monocytes % (Manual) Basophils % (Manual) Nucleated RBC % Seg Neutrophils # Seg Neutrophils # Man Lymphocytes # (Manual) Monocytes # (Manual) Eosinophils # (Manual) Basophils # (Manual) PT INR APTT Heparin Anti-Xa Level 0.20 L POC ABG pH POC ABG pCO2 POC ABG pO2 Sodium Potassium Chloride Carbon Dioxide BUN Creatinine Glucose POC Glucose 205 H 339 H Calcium Phosphorus Magnesium AST Alkaline Phosphatase C-Reactive Protein Total Protein Albumin Lipase Vitamin B12 TSH Urine WBC (Auto) Urine Chloride Urine Total Protein Vancomycin Trough Crossmatch 10/29/16 10/29/16 10/29/16 01:05 06:19 09:30 WBC 20.3 H RBC 2.80 L Hgb 8.5 L Hct 26.7 L MCV RDW 15.4 H Plt Count 571 H Lymph % (Auto) [place] % (Auto) [place] # Seg Neutrophils % Seg Neuts % (Manual) 75.0 H Lymphocytes % (Manual) 4.0 L Monocytes % (Manual) Basophils % (Manual) Nucleated RBC % Seg Neutrophils # Seg Neutrophils # Man 15.2 H Lymphocytes # (Manual) 0.8 L Monocytes # (Manual) Eosinophils # (Manual) Basophils # (Manual) PT INR APTT Heparin Anti-Xa Level POC ABG pH POC ABG pCO2 POC ABG pO2 Sodium Potassium Chloride Carbon Dioxide BUN Creatinine Glucose POC Glucose 275 H 179 H Calcium Phosphorus Magnesium AST Alkaline Phosphatase C-Reactive Protein Total Protein Albumin Lipase Vitamin B12 TSH Urine WBC (Auto) Urine Chloride Urine Total Protein Vancomycin Trough Crossmatch 10/29/16 10/29/16 10/29/16 11:46 15:18 17:55 WBC RBC Hgb Hct MCV RDW Plt Count Lymph % (Auto) [place] % (Auto) [place] # Seg Neutrophils % Seg Neuts % (Manual) Lymphocytes % (Manual) Monocytes % (Manual) Basophils % (Manual) Nucleated RBC % Seg Neutrophils # Seg Neutrophils # Man Lymphocytes # (Manual) Monocytes # (Manual) Eosinophils # (Manual) Basophils # (Manual) PT INR APTT Heparin Anti-Xa Level 1.15 H POC ABG pH POC ABG pCO2 POC ABG pO2 Sodium Potassium Chloride Carbon Dioxide BUN Creatinine Glucose POC Glucose 122 H 255 H Calcium Phosphorus Magnesium AST Alkaline Phosphatase C-Reactive Protein Total Protein Albumin Lipase Vitamin B12 TSH Urine WBC (Auto) Urine Chloride Urine Total Protein Vancomycin Trough Crossmatch 10/30/16 10/30/16 10/30/16 00:10 05:30 05:30 WBC 19.8 H RBC 2.51 L Hgb 7.7 L Hct 24.1 L MCV RDW 15.5 H Plt Count 534 H Lymph % (Auto) [place] % (Auto) [place] # Seg Neutrophils % Seg Neuts % (Manual) Lymphocytes % (Manual) Monocytes % (Manual) Basophils % (Manual) Nucleated RBC % Seg Neutrophils # Seg Neutrophils # Man Lymphocytes # (Manual) Monocytes # (Manual) Eosinophils # (Manual) Basophils # (Manual) PT INR APTT Heparin Anti-Xa Level POC ABG pH POC ABG pCO2 POC ABG pO2 Sodium Potassium Chloride Carbon Dioxide BUN Creatinine Glucose 211 H POC Glucose 202 H Calcium 7.4 L Phosphorus Magnesium AST Alkaline Phosphatase C-Reactive Protein Total Protein Albumin Lipase Vitamin B12 TSH Urine WBC (Auto) Urine Chloride Urine Total Protein Vancomycin Trough Crossmatch 10/30/16 10/30/16 10/30/16 06:32 12:51 17:47 WBC RBC Hgb Hct MCV RDW Plt Count Lymph % (Auto) [place] % (Auto) [place] # Seg Neutrophils % Seg Neuts % (Manual) Lymphocytes % (Manual) Monocytes % (Manual) Basophils % (Manual) Nucleated RBC % Seg Neutrophils # Seg Neutrophils # Man Lymphocytes # (Manual) Monocytes # (Manual) Eosinophils # (Manual) Basophils # (Manual) PT INR APTT Heparin Anti-Xa Level POC ABG pH POC ABG pCO2 POC ABG pO2 Sodium Potassium Chloride Carbon Dioxide BUN Creatinine Glucose POC Glucose 207 H 218 H 169 H Calcium Phosphorus Magnesium AST Alkaline Phosphatase C-Reactive Protein Total Protein Albumin Lipase Vitamin B12 TSH Urine WBC (Auto) Urine Chloride Urine Total Protein Vancomycin Trough Crossmatch 03/10/31/16 10/31/16 23:59 05:25 11:21 WBC RBC Hgb Hct MCV RDW Plt Count Lymph % (Auto) [place] % (Auto) [place] # Seg Neutrophils % Seg Neuts % (Manual) Lymphocytes % (Manual) Monocytes % (Manual) Basophils % (Manual) Nucleated RBC % Seg Neutrophils # Seg Neutrophils # Man Lymphocytes # (Manual) Monocytes # (Manual) Eosinophils # (Manual) Basophils # (Manual) PT INR APTT Heparin Anti-Xa Level POC ABG pH POC ABG pCO2 POC ABG pO2 Sodium Potassium Chloride Carbon Dioxide BUN Creatinine Glucose POC Glucose 138 H 127 H 132 H Calcium Phosphorus Magnesium AST Alkaline Phosphatase C-Reactive Protein Total Protein Albumin Lipase Vitamin B12 TSH Urine WBC (Auto) Urine Chloride Urine Total Protein Vancomycin Trough Crossmatch 10/31/16 10/31/16 11/01/16 17:07 23:54 05:47 WBC RBC Hgb Hct MCV RDW Plt Count Lymph % (Auto) [place] % (Auto) [place] # Seg Neutrophils % Seg Neuts % (Manual) Lymphocytes % (Manual) Monocytes % (Manual) Basophils % (Manual) Nucleated RBC % Seg Neutrophils # Seg Neutrophils # Man Lymphocytes # (Manual) Monocytes # (Manual) Eosinophils # (Manual) Basophils # (Manual) PT INR APTT Heparin Anti-Xa Level POC ABG pH POC ABG pCO2 POC ABG pO2 Sodium Potassium Chloride Carbon Dioxide BUN Creatinine Glucose POC Glucose 138 H 153 H 150 H Calcium Phosphorus Magnesium AST Alkaline Phosphatase C-Reactive Protein Total Protein Albumin Lipase Vitamin B12 TSH Urine WBC (Auto) Urine Chloride Urine Total Protein Vancomycin Trough Crossmatch 11/01/16 11/01/16 11/01/16 06:33 06:33 12:16 WBC 19.2 H RBC 2.51 L Hgb 7.9 L Hct 24.8 L MCV 99 H D RDW 16.1 H Plt Count 569 H Lymph % (Auto) [place] % (Auto) [place] # Seg Neutrophils % Seg Neuts % (Manual) Lymphocytes % (Manual) Monocytes % (Manual) Basophils % (Manual) Nucleated RBC % Seg Neutrophils # Seg Neutrophils # Man Lymphocytes # (Manual) Monocytes # (Manual) Eosinophils # (Manual) Basophils # (Manual) PT INR APTT Heparin Anti-Xa Level POC ABG pH POC ABG pCO2 POC ABG pO2 Sodium Potassium 3.5 L Chloride Carbon Dioxide 21 L BUN Creatinine Glucose 137 H POC Glucose 125 H Calcium 7.7 L Phosphorus Magnesium AST Alkaline Phosphatase 148 H C-Reactive Protein Total Protein 6.2 L Albumin 2.0 L Lipase Vitamin B12 TSH Urine WBC (Auto) Urine Chloride Urine Total Protein Vancomycin Trough Crossmatch 11/01/16 11/02/16 11/02/16 17:37 00:05 04:15 WBC RBC Hgb Hct MCV RDW Plt Count Lymph % (Auto) [place] % (Auto) [place] # Seg Neutrophils % Seg Neuts % (Manual) Lymphocytes % (Manual) Monocytes % (Manual) Basophils % (Manual) Nucleated RBC % Seg Neutrophils # Seg Neutrophils # Man Lymphocytes # (Manual) Monocytes # (Manual) Eosinophils # (Manual) Basophils # (Manual) PT INR APTT Heparin Anti-Xa Level < 0.10 L POC ABG pH POC ABG pCO2 POC ABG pO2 Sodium Potassium 3.2 L Chloride Carbon Dioxide BUN 6 L Creatinine Glucose 135 H POC Glucose 164 H Calcium 7.5 L Phosphorus Magnesium AST Alkaline Phosphatase 132 H C-Reactive Protein Total Protein 6.2 L Albumin 1.8 L Lipase Vitamin B12 TSH Urine WBC (Auto) Urine Chloride Urine Total Protein Vancomycin Trough Crossmatch 11/02/16 11/02/16 11/02/16 04:15 05:54 12:15 WBC 17.7 H RBC 2.43 L Hgb 7.6 L Hct 23.5 L MCV RDW 15.9 H Plt Count 502 H Lymph % (Auto) [place] % (Auto) [place] # Seg Neutrophils % Seg Neuts % (Manual) 84.0 H Lymphocytes % (Manual) 11.0 L Monocytes % (Manual) Basophils % (Manual) Nucleated RBC % 1.0 H Seg Neutrophils # Seg Neutrophils # Man 14.9 H Lymphocytes # (Manual) Monocytes # (Manual) Eosinophils # (Manual) Basophils # (Manual) PT INR APTT Heparin Anti-Xa Level POC ABG pH POC ABG pCO2 POC ABG pO2 Sodium Potassium Chloride Carbon Dioxide BUN Creatinine Glucose POC Glucose 152 H 137 H Calcium Phosphorus Magnesium AST Alkaline Phosphatase C-Reactive Protein Total Protein Albumin Lipase Vitamin B12 TSH Urine WBC (Auto) Urine Chloride Urine Total Protein Vancomycin Trough Crossmatch 11/02/16 11/03/16 11/03/16 17:00 00:05 00:05 WBC RBC Hgb Hct MCV RDW Plt Count Lymph % (Auto) [place] % (Auto) [place] # Seg Neutrophils % Seg Neuts % (Manual) Lymphocytes % (Manual) Monocytes % (Manual) Basophils % (Manual) Nucleated RBC % Seg Neutrophils # Seg Neutrophils # Man Lymphocytes # (Manual) Monocytes # (Manual) Eosinophils # (Manual) Basophils # (Manual) PT INR APTT Heparin Anti-Xa Level POC ABG pH POC ABG pCO2 POC ABG pO2 Sodium Potassium Chloride Carbon Dioxide 20 L BUN 5 L Creatinine Glucose 139 H POC Glucose 161 H Calcium 6.7 L Phosphorus Magnesium 1.2 L AST Alkaline Phosphatase C-Reactive Protein Total Protein Albumin Lipase Vitamin B12 TSH Urine WBC (Auto) Urine Chloride Urine Total Protein Vancomycin Trough Crossmatch 11/03/16 11/03/16 11/03/16 00:05 02:05 04:23 WBC 15.9 H 14.0 H RBC 1.93 L 2.38 L Hgb 5.9 L* 7.3 L Hct 18.9 L* 23.1 L MCV 98 H RDW 15.9 H 15.9 H Plt Count Lymph % (Auto) [place] % (Auto) [place] # Seg Neutrophils % Seg Neuts % (Manual) 85.0 H Lymphocytes % (Manual) 4.0 L Monocytes % (Manual) Basophils % (Manual) Nucleated RBC % Seg Neutrophils # Seg Neutrophils # Man 13.5 H Lymphocytes # (Manual) 0.6 L Monocytes # (Manual) Eosinophils # (Manual) Basophils # (Manual) PT INR APTT Heparin Anti-Xa Level POC ABG pH POC ABG pCO2 POC ABG pO2 Sodium Potassium Chloride Carbon Dioxide BUN 5 L Creatinine Glucose 127 H POC Glucose Calcium 7.2 L Phosphorus Magnesium AST Alkaline Phosphatase C-Reactive Protein Total Protein 5.8 L Albumin 1.5 L Lipase Vitamin B12 TSH Urine WBC (Auto) Urine Chloride Urine Total Protein Vancomycin Trough Crossmatch 11/03/16 11/03/16 11/03/16 09:14 09:27 11:54 WBC RBC Hgb Hct MCV RDW Plt Count Lymph % (Auto) [place] % (Auto) [place] # Seg Neutrophils % Seg Neuts % (Manual) Lymphocytes % (Manual) Monocytes % (Manual) Basophils % (Manual) Nucleated RBC % Seg Neutrophils # Seg Neutrophils # Man Lymphocytes # (Manual) Monocytes # (Manual) Eosinophils # (Manual) Basophils # (Manual) PT INR APTT Heparin Anti-Xa Level 0.11 L POC ABG pH POC ABG pCO2 POC ABG pO2 Sodium Potassium Chloride Carbon Dioxide BUN 5 L Creatinine Glucose 111 H POC Glucose 139 H Calcium 6.7 L Phosphorus Magnesium AST Alkaline Phosphatase C-Reactive Protein Total Protein Albumin Lipase Vitamin B12 TSH Urine WBC (Auto) Urine Chloride Urine Total Protein Vancomycin Trough Crossmatch 11/03/16 11/03/16 11/03/16 16:26 18:01 18:01 WBC RBC Hgb Hct MCV RDW Plt Count Lymph % (Auto) [place] % (Auto) [place] # Seg Neutrophils % Seg Neuts % (Manual) Lymphocytes % (Manual) Monocytes % (Manual) Basophils % (Manual) Nucleated RBC % Seg Neutrophils # Seg Neutrophils # Man Lymphocytes # (Manual) Monocytes # (Manual) Eosinophils # (Manual) Basophils # (Manual) PT INR APTT Heparin Anti-Xa Level 2.00 H POC ABG pH POC ABG pCO2 POC ABG pO2 Sodium Potassium Chloride Carbon Dioxide BUN Creatinine Glucose POC Glucose 142 H Calcium Phosphorus Magnesium AST Alkaline Phosphatase C-Reactive Protein Total Protein Albumin Lipase Vitamin B12 TSH Urine WBC (Auto) Urine Chloride Urine Total Protein Vancomycin Trough Crossmatch See Detail 11/04/16 11/04/16 11/04/16 02:15 02:15 06:35 WBC 11.8 H RBC 2.39 L Hgb 7.4 L Hct 23.1 L MCV RDW 15.9 H Plt Count Lymph % (Auto) [place] % (Auto) [place] # Seg Neutrophils % Seg Neuts % (Manual) 76.0 H Lymphocytes % (Manual) 12.0 L Monocytes % (Manual) 9.0 H Basophils % (Manual) Nucleated RBC % Seg Neutrophils # Seg Neutrophils # Man 9.0 H Lymphocytes # (Manual) Monocytes # (Manual) 1.1 H Eosinophils # (Manual) Basophils # (Manual) PT INR APTT Heparin Anti-Xa Level < 0.10 L POC ABG pH POC ABG pCO2 POC ABG pO2 Sodium Potassium Chloride Carbon Dioxide 21 L BUN 5 L Creatinine Glucose 112 H POC Glucose Calcium 6.8 L Phosphorus Magnesium AST Alkaline Phosphatase C-Reactive Protein Total Protein 5.7 L Albumin 1.7 L Lipase Vitamin B12 TSH Urine WBC (Auto) Urine Chloride Urine Total Protein Vancomycin Trough Crossmatch 11/04/16 11/04/16 11/04/16 10:51 12:58 15:04 WBC RBC Hgb Hct MCV RDW Plt Count Lymph % (Auto) [place] % (Auto) [place] # Seg Neutrophils % Seg Neuts % (Manual) Lymphocytes % (Manual) Monocytes % (Manual) Basophils % (Manual) Nucleated RBC % Seg Neutrophils # Seg Neutrophils # Man Lymphocytes # (Manual) Monocytes # (Manual) Eosinophils # (Manual) Basophils # (Manual) PT INR APTT Heparin Anti-Xa Level 1.05 H POC ABG pH POC ABG pCO2 33.7 L POC ABG pO2 60 L Sodium Potassium Chloride Carbon Dioxide BUN Creatinine Glucose POC Glucose 118 H Calcium Phosphorus Magnesium AST Alkaline Phosphatase C-Reactive Protein Total Protein Albumin Lipase Vitamin B12 TSH Urine WBC (Auto) Urine Chloride Urine Total Protein Vancomycin Trough Crossmatch 11/04/16 11/04/16 11/05/16 17:20 20:31 02:30 WBC RBC Hgb Hct MCV RDW Plt Count Lymph % (Auto) [place] % (Auto) [place] # Seg Neutrophils % Seg Neuts % (Manual) Lymphocytes % (Manual) Monocytes % (Manual) Basophils % (Manual) Nucleated RBC % Seg Neutrophils # Seg Neutrophils # Man Lymphocytes # (Manual) Monocytes # (Manual) Eosinophils # (Manual) Basophils # (Manual) PT INR APTT Heparin Anti-Xa Level POC ABG pH POC ABG pCO2 POC ABG pO2 Sodium Potassium 3.5 L Chloride Carbon Dioxide 18 L BUN 5 L Creatinine 0.6 L Glucose 110 H POC Glucose 228 H 169 H Calcium 7.1 L Phosphorus Magnesium AST Alkaline Phosphatase C-Reactive Protein Total Protein Albumin 1.9 L Lipase Vitamin B12 TSH Urine WBC (Auto) Urine Chloride Urine Total Protein Vancomycin Trough Crossmatch 11/05/16 11/05/16 11/05/16 02:30 17:52 21:07 WBC 14.1 H RBC Hgb Hct MCV RDW 16.7 H Plt Count Lymph % (Auto) [place] % (Auto) [place] # Seg Neutrophils % Seg Neuts % (Manual) 80.0 H Lymphocytes % (Manual) 6.0 L Monocytes % (Manual) 8.0 H Basophils % (Manual) Nucleated RBC % Seg Neutrophils # Seg Neutrophils # Man 11.3 H Lymphocytes # (Manual) 0.8 L Monocytes # (Manual) 1.1 H Eosinophils # (Manual) Basophils # (Manual) PT INR APTT Heparin Anti-Xa Level < 0.10 L POC ABG pH POC ABG pCO2 POC ABG pO2 Sodium Potassium Chloride Carbon Dioxide BUN Creatinine Glucose POC Glucose 174 H Calcium Phosphorus Magnesium AST Alkaline Phosphatase C-Reactive Protein Total Protein Albumin Lipase Vitamin B12 TSH Urine WBC (Auto) Urine Chloride Urine Total Protein Vancomycin Trough Crossmatch 11/05/16 11/06/16 11/06/16 23:30 05:00 05:00 WBC 15.2 H RBC 3.29 L Hgb 10.0 L Hct MCV RDW 16.9 H Plt Count Lymph % (Auto) [place] % (Auto) [place] # Seg Neutrophils % Seg Neuts % (Manual) Lymphocytes % (Manual) Monocytes % (Manual) Basophils % (Manual) Nucleated RBC % Seg Neutrophils # Seg Neutrophils # Man Lymphocytes # (Manual) Monocytes # (Manual) Eosinophils # (Manual) Basophils # (Manual) PT INR APTT Heparin Anti-Xa Level 0.94 H POC ABG pH POC ABG pCO2 POC ABG pO2 Sodium Potassium Chloride Carbon Dioxide BUN Creatinine Glucose POC Glucose 131 H Calcium Phosphorus Magnesium AST Alkaline Phosphatase C-Reactive Protein Total Protein Albumin Lipase Vitamin B12 TSH Urine WBC (Auto) Urine Chloride Urine Total Protein Vancomycin Trough Crossmatch 11/06/16 11/06/16 11/06/16 05:00 11:45 18:23 WBC RBC Hgb Hct MCV RDW Plt Count Lymph % (Auto) [place] % (Auto) [place] # Seg Neutrophils % Seg Neuts % (Manual) Lymphocytes % (Manual) Monocytes % (Manual) Basophils % (Manual) Nucleated RBC % Seg Neutrophils # Seg Neutrophils # Man Lymphocytes # (Manual) Monocytes # (Manual) Eosinophils # (Manual) Basophils # (Manual) PT INR APTT Heparin Anti-Xa Level POC ABG pH POC ABG pCO2 POC ABG pO2 Sodium Potassium 3.5 L Chloride 107.1 H Carbon Dioxide 20 L BUN 4 L Creatinine 0.6 L Glucose 104 H POC Glucose 141 H 255 H Calcium 6.7 L Phosphorus Magnesium AST Alkaline Phosphatase C-Reactive Protein Total Protein Albumin Lipase Vitamin B12 TSH Urine WBC (Auto) Urine Chloride Urine Total Protein Vancomycin Trough Crossmatch 11/06/16 11/06/16 11/07/16 22:07 23:07 11:41 WBC RBC Hgb Hct MCV RDW Plt Count Lymph % (Auto) [place] % (Auto) [place] # Seg Neutrophils % Seg Neuts % (Manual) Lymphocytes % (Manual) Monocytes % (Manual) Basophils % (Manual) Nucleated RBC % Seg Neutrophils # Seg Neutrophils # Man Lymphocytes # (Manual) Monocytes # (Manual) Eosinophils # (Manual) Basophils # (Manual) PT INR APTT Heparin Anti-Xa Level 0.80 H POC ABG pH POC ABG pCO2 POC ABG pO2 Sodium Potassium Chloride Carbon Dioxide BUN Creatinine Glucose POC Glucose 183 H 132 H Calcium Phosphorus Magnesium AST Alkaline Phosphatase C-Reactive Protein Total Protein Albumin Lipase Vitamin B12 TSH Urine WBC (Auto) Urine Chloride Urine Total Protein Vancomycin Trough Crossmatch 11/07/16 11/07/16 11/07/16 12:17 17:05 17:58 WBC RBC Hgb Hct MCV RDW Plt Count Lymph % (Auto) [place] % (Auto) [place] # Seg Neutrophils % Seg Neuts % (Manual) Lymphocytes % (Manual) Monocytes % (Manual) Basophils % (Manual) Nucleated RBC % Seg Neutrophils # Seg Neutrophils # Man Lymphocytes # (Manual) Monocytes # (Manual) Eosinophils # (Manual) Basophils # (Manual) PT INR APTT Heparin Anti-Xa Level 0.87 H POC ABG pH 7.324 L POC ABG pCO2 POC ABG pO2 Sodium Potassium Chloride Carbon Dioxide BUN Creatinine Glucose POC Glucose 158 H Calcium Phosphorus Magnesium AST Alkaline Phosphatase C-Reactive Protein Total Protein Albumin Lipase Vitamin B12 TSH Urine WBC (Auto) Urine Chloride Urine Total Protein Vancomycin Trough Crossmatch 11/07/16 11/07/16 11/07/16 23:26 Unknown Unknown WBC 12.3 H RBC 2.96 L Hgb 9.1 L Hct 27.9 L MCV RDW 16.8 H Plt Count Lymph % (Auto) [place] % (Auto) [place] # Seg Neutrophils % Seg Neuts % (Manual) 80.0 H Lymphocytes % (Manual) 7.0 L Monocytes % (Manual) Basophils % (Manual) Nucleated RBC % Seg Neutrophils # Seg Neutrophils # Man 9.8 H Lymphocytes # (Manual) 0.9 L Monocytes # (Manual) Eosinophils # (Manual) Basophils # (Manual) PT INR APTT Heparin Anti-Xa Level POC ABG pH POC ABG pCO2 POC ABG pO2 Sodium Potassium Chloride Carbon Dioxide 19 L BUN Creatinine Glucose 106 H POC Glucose 130 H Calcium 6.9 L Phosphorus Magnesium AST Alkaline Phosphatase C-Reactive Protein Total Protein Albumin Lipase Vitamin B12 TSH Urine WBC (Auto) Urine Chloride Urine Total Protein Vancomycin Trough Crossmatch 11/07/16 11/08/16 11/08/16 Unknown 05:14 05:20 WBC 12.4 H RBC 3.04 L Hgb 9.2 L Hct 28.8 L MCV RDW 16.6 H Plt Count Lymph % (Auto) [place] % (Auto) [place] # Seg Neutrophils % Seg Neuts % (Manual) 77.0 H Lymphocytes % (Manual) 5.0 L Monocytes % (Manual) Basophils % (Manual) 2.0 H Nucleated RBC % Seg Neutrophils # Seg Neutrophils # Man 9.5 H Lymphocytes # (Manual) 0.6 L Monocytes # (Manual) Eosinophils # (Manual) Basophils # (Manual) 0.2 H PT INR APTT Heparin Anti-Xa Level 0.90 H POC ABG pH POC ABG pCO2 POC ABG pO2 Sodium Potassium Chloride Carbon Dioxide BUN Creatinine Glucose POC Glucose 204 H Calcium Phosphorus Magnesium AST Alkaline Phosphatase C-Reactive Protein Total Protein Albumin Lipase Vitamin B12 TSH Urine WBC (Auto) Urine Chloride Urine Total Protein Vancomycin Trough Crossmatch 11/08/16 11/08/16 11/08/16 05:20 12:10 13:10 WBC RBC Hgb Hct MCV RDW Plt Count Lymph % (Auto) [place] % (Auto) [place] # Seg Neutrophils % Seg Neuts % (Manual) Lymphocytes % (Manual) Monocytes % (Manual) Basophils % (Manual) Nucleated RBC % Seg Neutrophils # Seg Neutrophils # Man Lymphocytes # (Manual) Monocytes # (Manual) Eosinophils # (Manual) Basophils # (Manual) PT INR APTT Heparin Anti-Xa Level POC ABG pH POC ABG pCO2 33.7 L POC ABG pO2 Sodium 136 L Potassium Chloride Carbon Dioxide 19 L BUN Creatinine Glucose 192 H POC Glucose 180 H Calcium 7.1 L Phosphorus Magnesium AST Alkaline Phosphatase C-Reactive Protein Total Protein Albumin Lipase Vitamin B12 TSH Urine WBC (Auto) Urine Chloride Urine Total Protein Vancomycin Trough Crossmatch 11/08/16 11/08/16 11/08/16 17:26 20:45 23:34 WBC RBC Hgb Hct MCV RDW Plt Count Lymph % (Auto) [place] % (Auto) [place] # Seg Neutrophils % Seg Neuts % (Manual) Lymphocytes % (Manual) Monocytes % (Manual) Basophils % (Manual) Nucleated RBC % Seg Neutrophils # Seg Neutrophils # Man Lymphocytes # (Manual) Monocytes # (Manual) Eosinophils # (Manual) Basophils # (Manual) PT INR APTT Heparin Anti-Xa Level POC ABG pH POC ABG pCO2 POC ABG pO2 Sodium Potassium Chloride Carbon Dioxide BUN Creatinine Glucose POC Glucose 187 H 178 H Calcium Phosphorus Magnesium AST Alkaline Phosphatase C-Reactive Protein Total Protein Albumin Lipase Vitamin B12 TSH Urine WBC (Auto) Urine Chloride Urine Total Protein Vancomycin Trough 35.4 H Crossmatch 03/24/17 03/24/17 03/24/17 05:30 05:30 05:59 WBC 11.5 H RBC 2.96 L Hgb 9.2 L Hct 28.2 L MCV RDW 16.4 H Plt Count Lymph % (Auto) [place] % (Auto) [place] # Seg Neutrophils % Seg Neuts % (Manual) 76.0 H Lymphocytes % (Manual) 2.0 L Monocytes % (Manual) Basophils % (Manual) Nucleated RBC % Seg Neutrophils # Seg Neutrophils # Man 8.7 H Lymphocytes # (Manual) 0.2 L Monocytes # (Manual) Eosinophils # (Manual) Basophils # (Manual) PT INR APTT Heparin Anti-Xa Level POC ABG pH POC ABG pCO2 POC ABG pO2 Sodium Potassium 3.4 L Chloride 107.6 H Carbon Dioxide 19 L BUN Creatinine 0.6 L Glucose 207 H POC Glucose 263 H Calcium 7.3 L Phosphorus Magnesium AST Alkaline Phosphatase C-Reactive Protein Total Protein Albumin Lipase Vitamin B12 TSH Urine WBC (Auto) Urine Chloride Urine Total Protein Vancomycin Trough Crossmatch 11/09/16 11/09/16 11/09/16 11:49 15:24 18:04 WBC RBC Hgb Hct MCV RDW Plt Count Lymph % (Auto) [place] % (Auto) [place] # Seg Neutrophils % Seg Neuts % (Manual) Lymphocytes % (Manual) Monocytes % (Manual) Basophils % (Manual) Nucleated RBC % Seg Neutrophils # Seg Neutrophils # Man Lymphocytes # (Manual) Monocytes # (Manual) Eosinophils # (Manual) Basophils # (Manual) PT INR APTT Heparin Anti-Xa Level POC ABG pH POC ABG pCO2 33.8 L POC ABG pO2 131 H Sodium Potassium Chloride Carbon Dioxide BUN Creatinine Glucose POC Glucose 269 H 242 H Calcium Phosphorus Magnesium AST Alkaline Phosphatase C-Reactive Protein Total Protein Albumin Lipase Vitamin B12 TSH Urine WBC (Auto) Urine Chloride Urine Total Protein Vancomycin Trough Crossmatch 11/09/16 11/10/16 11/10/16 22:57 04:30 04:30 WBC 15.7 H RBC 3.17 L Hgb 9.7 L Hct 30.2 L MCV RDW 16.2 H Plt Count Lymph % (Auto) [place] % (Auto) [place] # Seg Neutrophils % Seg Neuts % (Manual) Lymphocytes % (Manual) Monocytes % (Manual) Basophils % (Manual) Nucleated RBC % Seg Neutrophils # Seg Neutrophils # Man 8.5 H Lymphocytes # (Manual) Monocytes # (Manual) Eosinophils # (Manual) 0.5 H Basophils # (Manual) PT INR APTT Heparin Anti-Xa Level POC ABG pH POC ABG pCO2 POC ABG pO2 Sodium Potassium Chloride Carbon Dioxide 19 L BUN Creatinine 0.6 L Glucose 199 H POC Glucose 239 H Calcium 7.8 L Phosphorus Magnesium AST Alkaline Phosphatase C-Reactive Protein Total Protein Albumin Lipase Vitamin B12 TSH Urine WBC (Auto) Urine Chloride Urine Total Protein Vancomycin Trough Crossmatch 11/10/16 11/10/16 11/10/16 04:30 11:32 16:00 WBC RBC Hgb Hct MCV RDW Plt Count Lymph % (Auto) [place] % (Auto) [place] # Seg Neutrophils % Seg Neuts % (Manual) Lymphocytes % (Manual) Monocytes % (Manual) Basophils % (Manual) Nucleated RBC % Seg Neutrophils # Seg Neutrophils # Man Lymphocytes # (Manual) Monocytes # (Manual) Eosinophils # (Manual) Basophils # (Manual) PT INR APTT Heparin Anti-Xa Level 1.09 H < 0.10 L POC ABG pH POC ABG pCO2 POC ABG pO2 Sodium Potassium Chloride Carbon Dioxide BUN Creatinine Glucose POC Glucose 211 H Calcium Phosphorus Magnesium AST Alkaline Phosphatase C-Reactive Protein Total Protein Albumin Lipase Vitamin B12 TSH Urine WBC (Auto) Urine Chloride Urine Total Protein Vancomycin Trough Crossmatch 11/10/16 11/10/16 11/10/16 17:39 18:00 23:06 WBC RBC Hgb Hct MCV RDW Plt Count Lymph % (Auto) [place] % (Auto) [place] # Seg Neutrophils % Seg Neuts % (Manual) Lymphocytes % (Manual) Monocytes % (Manual) Basophils % (Manual) Nucleated RBC % Seg Neutrophils # Seg Neutrophils # Man Lymphocytes # (Manual) Monocytes # (Manual) Eosinophils # (Manual) Basophils # (Manual) PT INR APTT Heparin Anti-Xa Level 0.85 H POC ABG pH POC ABG pCO2 POC ABG pO2 Sodium Potassium Chloride Carbon Dioxide BUN Creatinine Glucose POC Glucose 249 H 220 H Calcium Phosphorus Magnesium AST Alkaline Phosphatase C-Reactive Protein Total Protein Albumin Lipase Vitamin B12 TSH Urine WBC (Auto) Urine Chloride Urine Total Protein Vancomycin Trough Crossmatch 11/11/16 11/11/16 11/11/16 05:56 06:15 06:15 WBC 13.3 H RBC 2.87 L Hgb 8.7 L Hct 27.2 L MCV RDW 16.4 H Plt Count Lymph % (Auto) [place] % (Auto) [place] # 0.9 H Seg Neutrophils % 78.9 H Seg Neuts % (Manual) Lymphocytes % (Manual) Monocytes % (Manual) Basophils % (Manual) Nucleated RBC % Seg Neutrophils # 10.5 H Seg Neutrophils # Man Lymphocytes # (Manual) Monocytes # (Manual) Eosinophils # (Manual) Basophils # (Manual) PT INR APTT Heparin Anti-Xa Level POC ABG pH POC ABG pCO2 POC ABG pO2 Sodium Potassium 3.2 L Chloride Carbon Dioxide 19 L BUN Creatinine Glucose POC Glucose 117 H Calcium 7.6 L Phosphorus Magnesium AST Alkaline Phosphatase C-Reactive Protein Total Protein Albumin Lipase Vitamin B12 TSH Urine WBC (Auto) Urine Chloride Urine Total Protein Vancomycin Trough Crossmatch 11/11/16 11/11/16 11/11/16 12:26 16:58 17:33 WBC RBC Hgb Hct MCV RDW Plt Count Lymph % (Auto) [place] % (Auto) [place] # Seg Neutrophils % Seg Neuts % (Manual) Lymphocytes % (Manual) Monocytes % (Manual) Basophils % (Manual) Nucleated RBC % Seg Neutrophils # Seg Neutrophils # Man Lymphocytes # (Manual) Monocytes # (Manual) Eosinophils # (Manual) Basophils # (Manual) PT INR APTT Heparin Anti-Xa Level < 0.10 L POC ABG pH POC ABG pCO2 POC ABG pO2 Sodium Potassium Chloride Carbon Dioxide BUN Creatinine Glucose POC Glucose 114 H 161 H Calcium Phosphorus Magnesium AST Alkaline Phosphatase C-Reactive Protein Total Protein Albumin Lipase Vitamin B12 TSH Urine WBC (Auto) Urine Chloride Urine Total Protein Vancomycin Trough Crossmatch 11/12/16 11/12/16 11/12/16 05:00 05:00 05:00 WBC 12.8 H RBC 2.75 L Hgb 8.4 L Hct 25.7 L MCV RDW 16.3 H Plt Count Lymph % (Auto) [place] % (Auto) 7.5 H [place] # 1.0 H Seg Neutrophils % 78.0 H Seg Neuts % (Manual) Lymphocytes % (Manual) Monocytes % (Manual) Basophils % (Manual) Nucleated RBC % Seg Neutrophils # 10.0 H Seg Neutrophils # Man Lymphocytes # (Manual) Monocytes # (Manual) Eosinophils # (Manual) Basophils # (Manual) PT INR APTT Heparin Anti-Xa Level 0.87 H POC ABG pH POC ABG pCO2 POC ABG pO2 Sodium Potassium 3.4 L Chloride Carbon Dioxide 19 L BUN Creatinine Glucose 112 H POC Glucose Calcium 7.7 L Phosphorus Magnesium AST Alkaline Phosphatase C-Reactive Protein Total Protein Albumin Lipase Vitamin B12 TSH Urine WBC (Auto) Urine Chloride Urine Total Protein Vancomycin Trough Crossmatch 11/12/16 11/12/16 11/13/16 11:18 16:40 00:44 WBC RBC Hgb Hct MCV RDW Plt Count Lymph % (Auto) [place] % (Auto) [place] # Seg Neutrophils % Seg Neuts % (Manual) Lymphocytes % (Manual) Monocytes % (Manual) Basophils % (Manual) Nucleated RBC % Seg Neutrophils # Seg Neutrophils # Man Lymphocytes # (Manual) Monocytes # (Manual) Eosinophils # (Manual) Basophils # (Manual) PT INR APTT Heparin Anti-Xa Level POC ABG pH POC ABG pCO2 POC ABG pO2 Sodium Potassium Chloride Carbon Dioxide BUN Creatinine Glucose POC Glucose 135 H 139 H 169 H Calcium Phosphorus Magnesium AST Alkaline Phosphatase C-Reactive Protein Total Protein Albumin Lipase Vitamin B12 TSH Urine WBC (Auto) Urine Chloride Urine Total Protein Vancomycin Trough Crossmatch 11/13/16 11/13/16 11/13/16 05:28 05:28 06:02 WBC 12.7 H RBC 2.93 L Hgb 9.0 L Hct 27.6 L MCV RDW 16.1 H Plt Count Lymph % (Auto) [place] % (Auto) [place] # Seg Neutrophils % 78.6 H Seg Neuts % (Manual) Lymphocytes % (Manual) Monocytes % (Manual) Basophils % (Manual) Nucleated RBC % Seg Neutrophils # 10.0 H Seg Neutrophils # Man Lymphocytes # (Manual) Monocytes # (Manual) Eosinophils # (Manual) Basophils # (Manual) PT INR APTT Heparin Anti-Xa Level POC ABG pH POC ABG pCO2 POC ABG pO2 Sodium Potassium Chloride Carbon Dioxide 17 L BUN Creatinine Glucose 116 H POC Glucose 112 H Calcium 7.8 L Phosphorus Magnesium AST Alkaline Phosphatase C-Reactive Protein Total Protein Albumin Lipase Vitamin B12 TSH Urine WBC (Auto) Urine Chloride Urine Total Protein Vancomycin Trough Crossmatch 11/13/16 11/13/16 11/13/16 12:34 16:55 17:00 WBC RBC Hgb Hct MCV RDW Plt Count Lymph % (Auto) [place] % (Auto) [place] # Seg Neutrophils % Seg Neuts % (Manual) Lymphocytes % (Manual) Monocytes % (Manual) Basophils % (Manual) Nucleated RBC % Seg Neutrophils # Seg Neutrophils # Man Lymphocytes # (Manual) Monocytes # (Manual) Eosinophils # (Manual) Basophils # (Manual) PT INR APTT Heparin Anti-Xa Level POC ABG pH POC ABG pCO2 22.9 L POC ABG pO2 53 L Sodium Potassium Chloride Carbon Dioxide BUN Creatinine Glucose POC Glucose 109 H 122 H Calcium Phosphorus Magnesium AST Alkaline Phosphatase C-Reactive Protein Total Protein Albumin Lipase Vitamin B12 TSH Urine WBC (Auto) Urine Chloride Urine Total Protein Vancomycin Trough Crossmatch 11/13/16 11/14/16 11/14/16 23:33 04:42 04:42 WBC 11.7 H RBC 3.01 L Hgb 9.3 L Hct 28.9 L MCV RDW 16.5 H Plt Count Lymph % (Auto) [place] % (Auto) [place] # Seg Neutrophils % Seg Neuts % (Manual) 79.0 H Lymphocytes % (Manual) 10.0 L Monocytes % (Manual) Basophils % (Manual) Nucleated RBC % Seg Neutrophils # Seg Neutrophils # Man 9.2 H Lymphocytes # (Manual) Monocytes # (Manual) Eosinophils # (Manual) Basophils # (Manual) PT INR APTT Heparin Anti-Xa Level POC ABG pH POC ABG pCO2 POC ABG pO2 Sodium Potassium Chloride Carbon Dioxide 16 L BUN Creatinine Glucose 102 H POC Glucose 173 H Calcium 7.5 L Phosphorus Magnesium AST Alkaline Phosphatase C-Reactive Protein Total Protein Albumin Lipase Vitamin B12 TSH Urine WBC (Auto) Urine Chloride Urine Total Protein Vancomycin Trough Crossmatch 11/14/16 11/14/16 11/14/16 11:43 16:57 19:45 WBC RBC Hgb Hct MCV RDW Plt Count Lymph % (Auto) [place] % (Auto) [place] # Seg Neutrophils % Seg Neuts % (Manual) Lymphocytes % (Manual) Monocytes % (Manual) Basophils % (Manual) Nucleated RBC % Seg Neutrophils # Seg Neutrophils # Man Lymphocytes # (Manual) Monocytes # (Manual) Eosinophils # (Manual) Basophils # (Manual) PT INR APTT Heparin Anti-Xa Level 0.71 H POC ABG pH POC ABG pCO2 POC ABG pO2 Sodium Potassium Chloride Carbon Dioxide BUN Creatinine Glucose POC Glucose 130 H 209 H Calcium Phosphorus Magnesium AST Alkaline Phosphatase C-Reactive Protein Total Protein Albumin Lipase Vitamin B12 TSH Urine WBC (Auto) Urine Chloride Urine Total Protein Vancomycin Trough Crossmatch 11/14/16 11/15/16 11/16/16 23:43 23:47 06:11 WBC RBC Hgb Hct MCV RDW Plt Count Lymph % (Auto) [place] % (Auto) [place] # Seg Neutrophils % Seg Neuts % (Manual) Lymphocytes % (Manual) Monocytes % (Manual) Basophils % (Manual) Nucleated RBC % Seg Neutrophils # Seg Neutrophils # Man Lymphocytes # (Manual) Monocytes # (Manual) Eosinophils # (Manual) Basophils # (Manual) PT INR APTT Heparin Anti-Xa Level POC ABG pH POC ABG pCO2 POC ABG pO2 Sodium Potassium Chloride Carbon Dioxide BUN Creatinine Glucose POC Glucose 167 H 114 H 125 H Calcium Phosphorus Magnesium AST Alkaline Phosphatase C-Reactive Protein Total Protein Albumin Lipase Vitamin B12 TSH Urine WBC (Auto) Urine Chloride Urine Total Protein Vancomycin Trough Crossmatch 11/16/16 11/16/16 11/16/16 09:05 09:05 09:05 WBC RBC 2.53 L Hgb 8.0 L Hct 23.7 L MCV RDW 15.9 H Plt Count Lymph % (Auto) [place] % (Auto) [place] # Seg Neutrophils % Seg Neuts % (Manual) Lymphocytes % (Manual) Monocytes % (Manual) Basophils % (Manual) Nucleated RBC % Seg Neutrophils # Seg Neutrophils # Man Lymphocytes # (Manual) Monocytes # (Manual) Eosinophils # (Manual) Basophils # (Manual) PT INR APTT Heparin Anti-Xa Level POC ABG pH POC ABG pCO2 POC ABG pO2 Sodium Potassium 2.5 L* D Chloride Carbon Dioxide 19 L BUN 5 L Creatinine Glucose 103 H POC Glucose Calcium 6.6 L Phosphorus Magnesium 1.3 L AST Alkaline Phosphatase C-Reactive Protein Total Protein Albumin Lipase Vitamin B12 TSH Urine WBC (Auto) Urine Chloride Urine Total Protein Vancomycin Trough Crossmatch 11/16/16 11/16/16 11/16/16 12:15 13:00 14:45 WBC RBC Hgb Hct MCV RDW Plt Count Lymph % (Auto) [place] % (Auto) [place] # Seg Neutrophils % Seg Neuts % (Manual) Lymphocytes % (Manual) Monocytes % (Manual) Basophils % (Manual) Nucleated RBC % Seg Neutrophils # Seg Neutrophils # Man Lymphocytes # (Manual) Monocytes # (Manual) Eosinophils # (Manual) Basophils # (Manual) PT 19.1 H INR 1.61 H APTT Heparin Anti-Xa Level POC ABG pH 7.479 H POC ABG pCO2 23.6 L POC ABG pO2 Sodium Potassium Chloride Carbon Dioxide BUN Creatinine Glucose POC Glucose 129 H Calcium Phosphorus Magnesium AST Alkaline Phosphatase C-Reactive Protein Total Protein Albumin Lipase Vitamin B12 TSH Urine WBC (Auto) Urine Chloride Urine Total Protein Vancomycin Trough Crossmatch 11/16/16 11/17/16 11/17/16 17:43 00:30 04:32 WBC RBC Hgb Hct MCV RDW Plt Count Lymph % (Auto) [place] % (Auto) [place] # Seg Neutrophils % Seg Neuts % (Manual) Lymphocytes % (Manual) Monocytes % (Manual) Basophils % (Manual) Nucleated RBC % Seg Neutrophils # Seg Neutrophils # Man Lymphocytes # (Manual) Monocytes # (Manual) Eosinophils # (Manual) Basophils # (Manual) PT INR APTT Heparin Anti-Xa Level POC ABG pH POC ABG pCO2 POC ABG pO2 Sodium Potassium Chloride Carbon Dioxide 18 L BUN Creatinine Glucose 127 H POC Glucose 224 H 259 H Calcium 7.5 L Phosphorus Magnesium AST Alkaline Phosphatase C-Reactive Protein Total Protein Albumin Lipase Vitamin B12 TSH Urine WBC (Auto) Urine Chloride Urine Total Protein Vancomycin Trough Crossmatch 11/17/16 11/17/16 05:42 08:34 WBC RBC 2.85 L Hgb 8.9 L Hct 26.5 L MCV RDW 16.2 H Plt Count Lymph % (Auto) [place] % (Auto) [place] # Seg Neutrophils % Seg Neuts % (Manual) Lymphocytes % (Manual) Monocytes % (Manual) Basophils % (Manual) Nucleated RBC % Seg Neutrophils # Seg Neutrophils # Man Lymphocytes # (Manual) Monocytes # (Manual) Eosinophils # (Manual) Basophils # (Manual) PT INR APTT Heparin Anti-Xa Level POC ABG pH POC ABG pCO2 POC ABG pO2 Sodium Potassium Chloride Carbon Dioxide BUN Creatinine Glucose POC Glucose 118 H Calcium Phosphorus Magnesium AST Alkaline Phosphatase C-Reactive Protein Total Protein Albumin Lipase Vitamin B12 TSH Urine WBC (Auto) Urine Chloride Urine Total Protein Vancomycin Trough Crossmatch Chest x-ray: report reviewed (Improving Hazy pulmonary opacities.), image reviewed Allied health notes reviewed: RT
[2016-11-17] MEDS: HEPARIN/ 0.45% NACL-25,000 UNIT/500 ML 25,000 UNITS/500 ML BAG IV SCH (13:29)
--- NOTE | 2016-11-17 17:01 | Progress Note ---
Assessment and Plan Assessment and plan: 66-year-old woman who presented with lethargy and altered mental status she deteriorated and was intubated and in emergency room, she was managed for DKA and she also developed sepsis due to UTI and right lower extremity ischemia 1. Acute respiratory failure with hypercapnia remains on ventilatory support status post trach and PEG 2. Diabetes=-on admission had DKA this has resolved. Continue SubQ insulin 3. Gastroenteritis question diabetic gastroparesis. GI consulted and noted. We'll monitor, tolerating PEG FEED. if reoccurs will get CT abdomen 4. 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 Consider possible conversion to AKA.continue heparin 5. Sepsis- Leukocytosis -ID following multifactorial. UTI. Continue to monitor 6. Toxic metabolic encephalopathy- improved. 7. Abdominal pain-does appear to have gastric distention no evidence of obstruction and NG tube in place GI consulted. Monitor closely. Associated. 8. LUCY- present on admissions. likely vasomotor . resolved 9. Tachycardia- continue BB, cardizem, 9. Anemia-stable 10. Hematuria. Will monitor for resolution. may need bladder scan if non resolving. patient continues on heparin drip due to SFA thrombosis. Discussed with vascular surgeon 11. Metabolic acidosis-monitor closely may need to add bicarbonate if needed 12. severe Hyperkalemia- replaced. recheck in AM. Critical care time 35 MINUTES Plan Discussed with family and punchboard stuffer History Interval history: Patient seen and examined, no focal vomiting noted tolerating PEG tube feedings yesterday but again had intermittent vomiting. hematuria noted Hospitalist Physical - Physical exam Narrative exam: VITAL SIGNS: Reviewed. GENERAL: The patient appeared well nourished and normally developed. Vital signs as documented. HEAD: No signs of head trauma. EYES: Pupils are equal. Extraocular motions intact. EARS: Hearing grossly intact. MOUTH: missing dentition NECK: Trach CHEST: Chest with diminshed CARDIAC: Regular rate and rhythm. S1 and S2, without murmurs, gallops, or rubs. VASCULAR: trace Edema. Peripheral pulses left lower ext ABDOMEN: Soft, distended, tender. No rebound or guarding, and no masses palpated. Bowel Sounds normal. MUSCULOSKELETAL: BKA right lower extremity dressing in place. Some necrosis to the lateral aspect. NEUROLOGIC EXAM: follows command. PSYCHIATRIC: mood appears normal. SKIN: dressing to right lower ext stump - Constitutional Vitals: Temp Pulse Resp BP Pulse Ox 98.5 F 99 H 35 H 131/74 100 11/17/16 12:00 11/17/16 14:00 11/17/16 14:00 11/17/16 14:00 11/17/16 14:00 General appearance: Present: no acute distress Results - Labs CBC & Chem 7: 11/17/16 08:34 11/17/16 04:32 Labs: Laboratory Last Values WBC 10.3 K/mm3 (4.5-11.0) 11/17/16 08:34 RBC 2.85 M/mm3 (3.65-5.03) L 11/17/16 08:34 Hgb 8.9 gm/dl (10.1-14.3) L 11/17/16 08:34 Hct 26.5 % (30.3-42.9) L 11/17/16 08:34 MCV 93 fl (79-97) 11/17/16 08:34 MCH 31 pg (28-32) 11/17/16 08:34 MCHC 34 % (30-34) 11/17/16 08:34 RDW 16.2 % (13.2-15.2) H 11/17/16 08:34 Plt Count 404 K/mm3 (140-440) 11/17/16 08:34 Lymph % (Auto) 13.8 % (13.4-35.0) 11/13/16 05:28 [place] % (Auto) 6.4 % (0.0-7.3) 11/13/16 05:28 Eos % (Auto) 0.9 % (0.0-4.3) 11/13/16 05:28 Baso % (Auto) 0.3 % (0.0-1.8) 11/13/16 05:28 Lymph # 1.8 K/mm3 (1.2-5.4) 11/13/16 05:28 [place] # 0.8 K/mm3 (0.0-0.8) 11/13/16 05:28 Eos # 0.1 K/mm3 (0.0-0.4) 11/13/16 05:28 Baso # 0.0 K/mm3 (0.0-0.1) 11/13/16 05:28 Add Manual Diff Complete 11/14/16 04:42 Total Counted 100 11/14/16 04:42 Seg Neutrophils % 78.6 % (40.0-70.0) H 11/13/16 05:28 Seg Neuts % (Manual) 79.0 % (40.0-70.0) H 11/14/16 04:42 Band Neutrophils % 6.0 % 11/14/16 04:42 Lymphocytes % (Manual) 10.0 % (13.4-35.0) L 11/14/16 04:42 Reactive Lymphs % (Man) 0 % 11/14/16 04:42 Monocytes % (Manual) 5.0 % (0.0-7.3) 11/14/16 04:42 Eosinophils % (Manual) 0 % (0.0-4.3) 11/14/16 04:42 Basophils % (Manual) 0 % (0.0-1.8) 11/14/16 04:42 Metamyelocytes % 0 % 11/14/16 04:42 Myelocytes % 0 % 11/14/16 04:42 Promyelocytes % 0 % 11/14/16 04:42 Blast Cells % 0 % 11/14/16 04:42 Nucleated RBC % Not Reportable 11/14/16 04:42 Seg Neutrophils # 10.0 K/mm3 (1.8-7.7) H 11/13/16 05:28 Seg Neutrophils # Man 9.2 K/mm3 (1.8-7.7) H 11/14/16 04:42 Band Neutrophils # 0.7 K/mm3 11/14/16 04:42 Lymphocytes # (Manual) 1.2 K/mm3 (1.2-5.4) 11/14/16 04:42 Abs React Lymphs (Man) 0.0 K/mm3 11/14/16 04:42 Monocytes # (Manual) 0.6 K/mm3 (0.0-0.8) 11/14/16 04:42 Eosinophils # (Manual) 0.0 K/mm3 (0.0-0.4) 11/14/16 04:42 Basophils # (Manual) 0.0 K/mm3 (0.0-0.1) 11/14/16 04:42 Metamyelocytes # 0.0 K/mm3 11/14/16 04:42 Myelocytes # 0.0 K/mm3 11/14/16 04:42 Promyelocytes # 0.0 K/mm3 11/14/16 04:42 Blast Cells # 0.0 K/mm3 11/14/16 04:42 Pathologist Review 10/29/16 09:30 WBC Morphology Not Reportable 11/14/16 04:42 Hypersegmented Neuts Not Reportable 11/14/16 04:42 Hyposegmented Neuts Not Reportable 11/14/16 04:42 Hypogranular Neuts Not Reportable 11/14/16 04:42 Hypersegmented Polys TNR 10/17/16 07:08 Smudge Cells Not Reportable 11/14/16 04:42 Toxic Granulation Not Reportable 11/14/16 04:42 Toxic Vacuolation Not Reportable 11/14/16 04:42 Dohle Bodies Not Reportable 11/14/16 04:42 Pelger-Huet Anomaly Not Reportable 11/14/16 04:42 [place] Rods Not Reportable 11/14/16 04:42 Platelet Estimate Consistent w auto 11/14/16 04:42 Clumped Platelets Not Reportable 11/14/16 04:42 Plt Clumps, EDTA Not Reportable 11/14/16 04:42 Large Platelets Not Reportable 11/14/16 04:42 Giant Platelets Not Reportable 11/14/16 04:42 Platelet Satelliting Not Reportable 11/14/16 04:42 Plt Morphology Comment Not Reportable 11/14/16 04:42 RBC Morphology Not Reportable 11/14/16 04:42 Dimorphic RBCs Not Reportable 11/14/16 04:42 Polychromasia Not Reportable 11/14/16 04:42 Hypochromasia Not Reportable 11/14/16 04:42 Poikilocytosis Not Reportable 11/14/16 04:42 Basophilic Stippling TNR 10/17/16 07:08 Anisocytosis 1+ 11/14/16 04:42 Microcytosis Not Reportable 11/14/16 04:42 Macrocytosis Not Reportable 11/14/16 04:42 Spherocytes Not Reportable 11/14/16 04:42 Pappenheimer Bodies Not Reportable 11/14/16 04:42 Sickle Cells Not Reportable 11/14/16 04:42 Target Cells Not Reportable 11/14/16 04:42 Tear Drop Cells Not Reportable 11/14/16 04:42 Ovalocytes Not Reportable 11/14/16 04:42 Stomatocytes Few 11/03/16 00:05 Helmet Cells Not Reportable 11/14/16 04:42 [place]gins-[place] Bodies Not Reportable 11/14/16 04:42 [place] Rings Not Reportable 11/14/16 04:42 Jeannette Cells Not Reportable 11/14/16 04:42 Bite Cells Not Reportable 11/14/16 04:42 Crenated Cell Not Reportable 11/14/16 04:42 Elliptocytes Not Reportable 11/14/16 04:42 Acanthocytes (Spur) Not Reportable 11/14/16 04:42 Rouleaux Not Reportable 11/14/16 04:42 Hemoglobin C Crystals Not Reportable 11/14/16 04:42 Schistocytes Not Reportable 11/14/16 04:42 Malaria parasites Not Reportable 11/14/16 04:42 David Bodies Not Reportable 11/14/16 04:42 Hem Pathologist Commnt No 11/14/16 04:42 PT 19.1 Sec. (12.2-14.9) H 11/16/16 13:00 INR 1.61 (0.87-1.13) H 11/16/16 13:00 APTT 38.8 Sec. (24.2-36.6) H 10/17/16 16:07 Heparin Anti-Xa Level 0.53 U.I./ml (0.3-0.7) 11/17/16 04:32 POC ABG pH 7.479 (7.35-7.45) H 11/16/16 14:45 POC ABG pCO2 23.6 (35-45) L 11/16/16 14:45 POC ABG pO2 83 (80-105) 11/16/16 14:45 POC ABG HCO3 17.5 11/16/16 14:45 POC ABG Total CO2 18 11/16/16 14:45 POC ABG O2 Sat 97 11/16/16 14:45 POC ABG Base Excess -6 11/16/16 14:45 VBG pH 7.020 (7.320-7.420) L* 10/13/16 04:22 FiO2 25 % 11/16/16 14:45 Sodium 141 mmol/L (137-145) 11/17/16 04:32 Potassium 3.7 mmol/L (3.6-5.0) D 11/17/16 04:32 Chloride 105.4 mmol/L (98-107) 11/17/16 04:32 Carbon Dioxide 18 mmol/L (22-30) L 11/17/16 04:32 Anion Gap 21 mmol/L 11/17/16 04:32 BUN 7 mg/dL (7-17) 11/17/16 04:32 Creatinine 0.8 mg/dL (0.7-1.2) 11/17/16 04:32 Estimated GFR > 60 ml/min 11/17/16 04:32 BUN/Creatinine Ratio 8.75 % 11/17/16 04:32 Glucose 127 mg/dL (65-100) H 11/17/16 04:32 POC Glucose 256 (70-105) H 11/17/16 16:52 Osmolality 332 Mosm/kg 10/14/16 07:03 Lactic Acid 1.8 mmol/L (0.7-2.0) 10/14/16 07:03 Calcium 7.5 mg/dL (8.4-10.2) L 11/17/16 04:32 Phosphorus 2.7 mg/dL (2.5-4.5) D 10/21/16 Unknown Magnesium 2.0 mg/dL (1.7-2.3) 11/17/16 04:32 Total Bilirubin 0.3 mg/dL (0.1-1.2) 11/05/16 02:30 AST 9 units/L (5-40) 11/05/16 02:30 ALT 11 units/L (7-56) 11/05/16 02:30 Alkaline Phosphatase 119 units/L (35-129) 11/05/16 02:30 Ammonia 35.0 umol/L (25-60) 10/13/16 05:40 Total Creatine Kinase 107 units/L (30-135) 10/13/16 04:22 CK-MB (CK-2) 3.1 ng/mL (0.0-4.0) 10/13/16 04:22 CK-MB (CK-2) Rel Index 2.8 (0-4) 10/13/16 04:22 Troponin T < 0.010 ng/mL (0.00-0.029) 10/14/16 18:55 C-Reactive Protein 10.50 mg/dL (0.00-1.30) H 10/13/16 16:14 Total Protein 6.7 g/dL (6.3-8.2) 11/05/16 02:30 Albumin 1.9 g/dL (3.9-5) L 11/05/16 02:30 Albumin/Globulin Ratio 0.4 % 11/05/16 02:30 Amylase 30 units/L (27-131) 11/10/16 04:30 Lipase 41 units/L (13-60) 11/10/16 04:30 Vitamin B12 976.8 pg/mL (211-911) H 10/22/16 10:25 TSH 0.162 mlU/mL (0.270-4.200) L 10/22/16 14:50 Free T4 0.77 ng/dL (0.76-1.46) 10/22/16 14:50 Urine Color Yellow (Yellow) 11/14/16 19:39 Urine Turbidity Cloudy (Clear) 11/14/16 19:39 Urine pH 6.0 (5.0-7.0) 11/14/16 19:39 Ur Specific [place] 1.010 (1.003-1.030) 11/14/16 19:39 Urine Protein 30 mg/dl mg/dL (Negative) 11/14/16 19:39 Urine Glucose (UA) 50 mg/dL (Negative) 11/14/16 19:39 Urine Ketones 20 mg/dL (Negative) 11/14/16 19:39 Urine Blood Lg (Negative) 11/14/16 19:39 Urine Nitrite Neg (Negative) 11/14/16 19:39 Urine Bilirubin Neg (Negative) 11/14/16 19:39 Urine Urobilinogen < 2.0 mg/dL (<2.0) 11/14/16 19:39 Ur Leukocyte Esterase Sm (Negative) 11/14/16 19:39 Urine WBC (Auto) 3.0 /HPF (0.0-6.0) 11/14/16 19:39 Urine RBC (Auto) > 182.0 /HPF (0.0-6.0) 11/14/16 19:39 U Epithel Cells (Auto) 1.0 /HPF (0-13.0) 10/15/16 11:05 Urine Bacteria (Auto) 1+ /HPF (Negative) 11/14/16 19:39 Urine Mucus Few /HPF 11/14/16 19:39 Urine Yeast (Budding) 2+ /HPF 10/15/16 11:05 Urine Osmolality 487 Mosm/kg 10/13/16 Unknown Urine Creatinine < 4.2 mg/dL (0.1-20.0) 10/13/16 Unknown Protein/Creatinin Ratio 0.00 10/13/16 Unknown Urine Sodium 10 mEq/L 10/13/16 Unknown Urine Potassium 1.00 mEq/L 10/13/16 Unknown Urine Chloride 10.0 mEq/L (110-250) L 10/13/16 Unknown Urine Total Protein < 4 mg/dL (5-11.8) L 10/13/16 Unknown Vancomycin Trough 35.4 ug/mL (5.0-20.0) H 11/08/16 20:45 Random Vancomycin 19.4 ug/mL (0-40.0) 11/11/16 06:15 Ketones 107.3 mg/dL (0.2-2.8) H 10/13/16 04:22 Blood Type A POSITIVE 11/03/16 18:01 Antibody Screen Negative 11/03/16 18:01 Crossmatch See Detail 11/03/16 18:01
--- NOTE | 2016-11-17 21:02 | Progress Note ---
Subjective Date of service: 11/17/16 Principal diagnosis: respiratory failure on mechanical ventilatory support, DKA Interval history: No new issues Vital signs - Temp 99 CHEST - GOOD AIR ENTRY CVS - S1S2 ABD - BS_ LABS See lab section. ASSESSMENT 1. Sepsis 2. dka 3. resp failure 4. htn 5. clostridium difficile colitis 6. bilateral pneumonia 6. RIGHT LEG GANGRENE s/p amputation RECOMMENDATION 1. continue iv abx 2. cbc/bmp in am Objective - Constitutional Vitals: Vital Signs Temp Pulse Resp BP Pulse Ox 99.0 F 127 H 27 H 143/87 100 11/17/16 19:46 11/17/16 20:30 11/17/16 20:30 11/17/16 20:30 11/17/16 20:30 Temperature -Last 24 Hours Temperature 99.0 F Temperature 98.4 F Temperature 98.5 F Temperature 99 F Temperature 100.6 F Temperature 99.4 F Temperature 99.4 F - Labs CBC & Chem 7: 11/17/16 08:34 11/17/16 04:32 Labs: Abnormal lab results 11/16/16 11/17/16 11/17/16 Range/Units 17:43 00:30 04:32 RBC (3.65-5.03) M/mm3 Hgb (10.1-14.3) gm/dl Hct (30.3-42.9) % RDW (13.2-15.2) % Carbon Dioxide 18 L (22-30) mmol/L Glucose 127 H (65-100) mg/dL POC Glucose 224 H 259 H (70-105) Calcium 7.5 L (8.4-10.2) mg/dL 11/17/16 11/17/16 11/17/16 Range/Units 05:42 08:34 12:19 RBC 2.85 L (3.65-5.03) M/mm3 Hgb 8.9 L (10.1-14.3) gm/dl Hct 26.5 L (30.3-42.9) % RDW 16.2 H (13.2-15.2) % Carbon Dioxide (22-30) mmol/L Glucose (65-100) mg/dL POC Glucose 118 H 264 H (70-105) Calcium (8.4-10.2) mg/dL 11/17/16 Range/Units 16:52 RBC (3.65-5.03) M/mm3 Hgb (10.1-14.3) gm/dl Hct (30.3-42.9) % RDW (13.2-15.2) % Carbon Dioxide (22-30) mmol/L Glucose (65-100) mg/dL POC Glucose 256 H (70-105) Calcium (8.4-10.2) mg/dL
[2016-11-18] MEDS ORDERED: ADRENALIN ONE (04:45)
[2016-11-18] MEDS ORDERED: SODIUM BICARBONATE IV ONE ×2 (04:45→06:18)
--- NOTE | 2016-11-18 05:12 | Event Note ---
CODE BLUE call, initial rhythm PEA, ACLS protocol initiated refer to code sheet for details, after 3 epi there was ROSC Check labs
[2016-11-18 05:50] LABS: ISTAT Base Excess -13; ISTAT HCO3 14.1; ISTAT PH 7.252 (7.35-7.45); ISTAT PO2 83 (80-105); ISTAT SO2 94; ISTAT TCO2 15
[2016-11-18] MEDS ORDERED: LEVOPHED DRIP 4 MG/NS 250 ML 4 MG/250 ML BAG IV ONE (05:55)
[2016-11-18] MEDS ORDERED: LEVOPHED IV SCH (06:05)
[2016-11-18] MEDS ORDERED: NACL 0.9% IV SCH ×2 (06:05→14:00)
[2016-11-18] MEDS ORDERED: SODIUM BICARBONATE IV STA (06:05)
[2016-11-18 06:11] LABS: Basophils % (Auto) 0.3 % (0.0-1.8); Hematocrit 29.5 % (30.3-42.9); Hemoglobin 9.2 gm/dl (10.1-14.3); Mean Corpuscular HGB Conc 31 % (30-34); Mean Corpuscular Hemoglobin 30 pg (28-32); Mean Corpuscular Volume 96 fl (79-97); Platelet Count 421 K/mm3 (140-440); Red Blood Count 3.07 M/mm3 (3.65-5.03); Red Cell Distribution Width 16.9 % (13.2-15.2); White Blood Count 13.3 K/mm3 (4.5-11.0)
--- NOTE | 2016-11-18 06:18 | XRay Report ---
FINAL REPORT PROCEDURE: XR CHEST 1V AP PORTABLE TECHNIQUE: Chest radiograph anteroposterior portable view. CPT 02241 HISTORY: Cardiac arrest. Respiratory distress. Shortness of breath COMPARISON: No prior studies are available for comparison. FINDINGS: Heart: Likely top-normal in size when accounting for magnification from portable technique.. Mediastinum/Vessels: Prominent facundo bilaterally are likely due to prominent pulmonary arteries magnified by portable technique and accentuated by central venous congestion. Lungs/Pleural space: There is moderate central venous congestion and moderate interstitial pulmonary edema. There is no distinct focal infiltrate. There is no plain film evidence of significant pleural effusion.. Bony thorax: No acute osseous abnormality. Life support devices: Central line tip is in lower SVC. Tracheostomy tube tip is 4 centimeters above tracheal bifurcation. Distal aspect of the NG tube projects beyond GE junction below level of film.. IMPRESSION: 1. Moderate pulmonary edema. 2. There is no focal infiltrate. 3. Life-support lines as above.
[2016-11-18 06:21] LABS: INR 1.72 (0.87-1.13)
[2016-11-18 06:22] LABS: Alanine Aminotransferase 9 units/L (7-56); Albumin 2.1 g/dL (3.9-5); Albumin/Globulin Ratio 0.6 %; Alkaline Phosphatase 92 units/L (35-129); Anion Gap 23 mmol/L; Bilirubin,Total 0.2 mg/dL (0.1-1.2); Blood Urea Nitrogen 7 mg/dL (7-17); Calcium 7.2 mg/dL (8.4-10.2); Carbon Dioxide 17 mmol/L (22-30); Chloride 107.1 mmol/L (98-107); Glucose 284 mg/dL (65-100); Potassium 3.7 mmol/L (3.6-5.0); Sodium 143 mmol/L (137-145); Total Protein 5.5 g/dL (6.3-8.2)
[2016-11-18] MEDS: LOPRESSOR FEEDTUBE SCH ×3 (06:38→19:20)
[2016-11-18] MEDS: ATIVAN IV PRN ×5 (06:42→21:40)
[2016-11-18 06:45] LABS: Partial Thromboplastin Time 131.1 Sec. (24.2-36.6)
[2016-11-18] MEDS ORDERED: DILANTIN 1,000 MG in NACL 0.9% 250ML 250 ML IV STA (08:51)
[2016-11-18] MEDS: VANCOMYCIN VIAL 1,500 MG in NACL 0.9% 500 ML 500 ML IV SCH (09:18)
[2016-11-18] MEDS: LEVAQUIN 750MG/150ML 750 MG/150 ML BAG IV SCH (09:18)
[2016-11-18] MEDS: PLAVIX PO SCH (09:19)
[2016-11-18] MEDS: PEPCID PO SCH ×2 (09:20→21:51)
[2016-11-18 09:24] LABS: ISTAT Base Excess -8; ISTAT HCO3 16.3; ISTAT PCO2 24.3 (35-45); ISTAT PH 7.434 (7.35-7.45); ISTAT PO2 79 (80-105); ISTAT SO2 96; ISTAT TCO2 17
[2016-11-18] MEDS: HEPARIN/ 0.45% NACL-25,000 UNIT/500 ML 25,000 UNITS/500 ML BAG IV SCH (09:29)
[2016-11-18] MEDS: REGLAN IV SCH ×2 (12:52→19:20)
--- NOTE | 2016-11-18 13:01 | Progress Note ---
Assessment and Plan I was told patient coded this morning.Patient resucitated.Patient heart rate came back. Patients blood pressure low. Patient started on Levophed. Patient is on assist control mechanical ventilation. Patient is on assist control rate 16, tidal volume 450, FIO2 50%, PEEP 5. O2 satuaration running 100%.Patient having seizure like activity Likely from anoxia. I spent critical care time of 45 minutes on this patient examining the patient, review chest ray and labs and talking to the Nursing staff and respiratory therapy and work out plan of treatment. - Patient Problems (1) Acute respiratory failure with hypercapnia Current Visit: Yes Status: Acute Plan to address problem: Patient is on assist control rate 16, tidal volume 450, FIO2 50%, PEEP 5 Albuterol/atrovent aerosol treatments q 6 hours. Patient on I.V Heparine. Continue famotidine. respiratory suctioning Trach care. (2) LUCY (acute kidney injury) Current Visit: Yes Status: Acute Plan to address problem: Management as per primary care. (3) DKA (diabetic ketoacidoses) Current Visit: Yes Status: Acute Qualifiers: Diabetes mellitus type: D Diabetes mellitus complication detail: D Plan to address problem: Patient is on insulin coverage. and I/V fluids. Management as per primary care. (4) Altered mental status Current Visit: Yes Status: Acute Qualifiers: Altered mental status type: A Coma depth: C Coma timing: C Plan to address problem: Management as per primary care. (5) Sepsis Current Visit: No Status: Acute Qualifiers: Sepsis type: S Plan to address problem: Patient is on Levaquine and Vancomycin (6) Obesity (BMI 30-39.9) Current Visit: No Status: Chronic Qualifiers: Obesity type: O Obesity severity: O Plan to address problem: Weight reduction diet. (7) Ischemia of right lower extremity Current Visit: Yes Status: Acute Plan to address problem: Management as per vascular surgery. Patient BKA of right leg. Subjective Date of service: 11/18/16 Principal diagnosis: respiratory failure on mechanical ventilatory support, DKA Interval history: I was told patient coded this morning.Patient resucitated.Patient heart rate came back. Patients blood pressure low. Patient started on Levophed. Patient is on assist control mechanical ventilation. Patient is on assist control rate 16, tidal volume 450, FIO2 50%, PEEP 5. O2 satuaration running 100%.Patient having seizure like activity Likely from anoxia. Objective Vital Signs - 12hr 11/18/16 11/18/16 11/18/16 01:00 01:30 02:00 Temperature Pulse Rate 133 H 130 H 132 H Respiratory 31 H 28 H 30 H Rate Blood Pressure 173/102 156/95 162/94 O2 Sat by Pulse 100 100 100 Oximetry 11/18/16 11/18/16 11/18/16 02:30 02:46 03:00 Temperature Pulse Rate 136 H 131 H Respiratory 35 H 20 26 H Rate Blood Pressure 169/108 160/97 O2 Sat by Pulse 99 100 100 Oximetry 11/18/16 11/18/16 11/18/16 03:30 04:00 04:01 Temperature 100.1 F H Pulse Rate 134 H 127 H Respiratory 28 H 30 H Rate Blood Pressure 172/98 126/69 O2 Sat by Pulse 99 99 Oximetry 11/18/16 11/18/16 11/18/16 04:31 04:42 04:55 Temperature Pulse Rate 53 L 154 H Respiratory 15 Rate Blood Pressure 50/30 106/61 O2 Sat by Pulse 95 95 94 Oximetry 11/18/16 11/18/16 11/18/16 05:01 05:30 06:00 Temperature Pulse Rate 159 H 120 H 111 H Respiratory 11 L 22 29 H Rate Blood Pressure 96/54 101/37 96/45 O2 Sat by Pulse 99 91 95 Oximetry 11/18/16 11/18/16 11/18/16 06:30 06:38 07:00 Temperature Pulse Rate 108 H 107 H 107 H Respiratory 25 H 27 H Rate Blood Pressure 113/55 113/55 110/56 O2 Sat by Pulse 95 97 Oximetry 11/18/16 11/18/16 11/18/16 07:30 08:00 08:30 Temperature 98.8 F Pulse Rate 106 H 108 H 108 H Respiratory 26 H 29 H 30 H Rate Blood Pressure 116/62 121/62 127/68 O2 Sat by Pulse 95 95 97 Oximetry 11/18/16 11/18/16 11/18/16 08:36 09:00 09:30 Temperature Pulse Rate 108 H 109 H Respiratory 31 H 15 Rate Blood Pressure 127/68 125/67 123/57 O2 Sat by Pulse 108 H 97 99 Oximetry 11/18/16 11/18/16 11/18/16 10:00 10:30 11:00 Temperature Pulse Rate 108 H 82 81 Respiratory 26 H 10 L 22 Rate Blood Pressure 126/63 78/44 101/53 O2 Sat by Pulse 100 98 98 Oximetry 11/18/16 11/18/16 11:30 12:00 Temperature Pulse Rate 79 100 H Respiratory 18 Rate Blood Pressure 109/56 113/54 O2 Sat by Pulse 81 L Oximetry Constitutional: no acute distress, asleep, other (Patient S?P CPR. Patient has anoxic encephalopathy) Eyes: non-icteric ENT: oropharynx moist Neck: supple, no lymphadenopathy Effort: mildly labored Ascultation: Bilateral: diminished breath sounds, rales Cardiovascular: regular rate and rhythm, other (tachycardia) Gastrointestinal: normoactive bowel sounds, soft, non-tender, non-distended Integumentary: normal Extremities: no cyanosis, no edema, no ischemia or petechiae, other (s/p right BKA) Neurologic: unable to assess, other (sedated) Psychiatric: anxious CBC and BMP: 11/18/16 05:45 11/18/16 05:45 ABG, PT/INR, D-dimer: ABG POC ABG pH 7.434 (7.35-7.45) 11/18/16 09:17 POC ABG pCO2 24.3 (35-45) L 11/18/16 09:17 POC ABG pO2 79 (80-105) L 11/18/16 09:17 POC ABG HCO3 16.3 11/18/16 09:17 POC ABG Total CO2 17 11/18/16 09:17 POC ABG O2 Sat 96 11/18/16 09:17 PT/INR, D-dimer PT 20.1 Sec. (12.2-14.9) H 11/18/16 05:45 INR 1.72 (0.87-1.13) H 11/18/16 05:45 Abnormal lab findings: Abnormal Labs 10/13/16 10/13/16 10/13/16 06:38 06:38 07:23 WBC RBC Hgb Hct MCV RDW Plt Count Lymph % (Auto) [place] % (Auto) [place] # Seg Neutrophils % Seg Neuts % (Manual) Lymphocytes % (Manual) Monocytes % (Manual) Basophils % (Manual) Nucleated RBC % Seg Neutrophils # Seg Neutrophils # Man Lymphocytes # (Manual) Monocytes # (Manual) Eosinophils # (Manual) Basophils # (Manual) PT INR APTT Heparin Anti-Xa Level POC ABG pH POC ABG pCO2 POC ABG pO2 Sodium Potassium 6.2 H* Chloride Carbon Dioxide 8 L* BUN 85 H Creatinine 2.8 H Glucose 602 H* POC Glucose 495 H Calcium 7.9 L Phosphorus 6.9 H D Magnesium 3.0 H AST Alkaline Phosphatase C-Reactive Protein Total Protein Albumin Lipase Vitamin B12 TSH Urine WBC (Auto) Urine Chloride Urine Total Protein Vancomycin Trough Crossmatch 10/13/16 10/13/16 10/13/16 08:49 08:55 10:12 WBC RBC Hgb Hct MCV RDW Plt Count Lymph % (Auto) [place] % (Auto) [place] # Seg Neutrophils % Seg Neuts % (Manual) Lymphocytes % (Manual) Monocytes % (Manual) Basophils % (Manual) Nucleated RBC % Seg Neutrophils # Seg Neutrophils # Man Lymphocytes # (Manual) Monocytes # (Manual) Eosinophils # (Manual) Basophils # (Manual) PT INR APTT Heparin Anti-Xa Level POC ABG pH POC ABG pCO2 POC ABG pO2 Sodium Potassium 5.6 H Chloride Carbon Dioxide 11 L BUN 77 H Creatinine 2.7 H Glucose 457 H POC Glucose > 500 H 424 H Calcium 8.0 L Phosphorus Magnesium AST Alkaline Phosphatase C-Reactive Protein Total Protein Albumin Lipase Vitamin B12 TSH Urine WBC (Auto) Urine Chloride Urine Total Protein Vancomycin Trough Crossmatch 10/13/16 10/13/16 10/13/16 10:44 11:22 12:20 WBC RBC Hgb Hct MCV RDW Plt Count Lymph % (Auto) [place] % (Auto) [place] # Seg Neutrophils % Seg Neuts % (Manual) Lymphocytes % (Manual) Monocytes % (Manual) Basophils % (Manual) Nucleated RBC % Seg Neutrophils # Seg Neutrophils # Man Lymphocytes # (Manual) Monocytes # (Manual) Eosinophils # (Manual) Basophils # (Manual) PT INR APTT Heparin Anti-Xa Level POC ABG pH POC ABG pCO2 POC ABG pO2 Sodium Potassium 5.4 H Chloride Carbon Dioxide 14 L BUN 72 H Creatinine 2.6 H Glucose 383 H POC Glucose 391 H 313 H Calcium 8.2 L Phosphorus Magnesium AST Alkaline Phosphatase C-Reactive Protein Total Protein Albumin Lipase Vitamin B12 TSH Urine WBC (Auto) Urine Chloride Urine Total Protein Vancomycin Trough Crossmatch 10/13/16 10/13/16 10/13/16 13:32 14:44 15:57 WBC RBC Hgb Hct MCV RDW Plt Count Lymph % (Auto) [place] % (Auto) [place] # Seg Neutrophils % Seg Neuts % (Manual) Lymphocytes % (Manual) Monocytes % (Manual) Basophils % (Manual) Nucleated RBC % Seg Neutrophils # Seg Neutrophils # Man Lymphocytes # (Manual) Monocytes # (Manual) Eosinophils # (Manual) Basophils # (Manual) PT INR APTT Heparin Anti-Xa Level POC ABG pH POC ABG pCO2 POC ABG pO2 Sodium Potassium Chloride Carbon Dioxide BUN Creatinine Glucose POC Glucose 296 H 210 H 190 H Calcium Phosphorus Magnesium AST Alkaline Phosphatase C-Reactive Protein Total Protein Albumin Lipase Vitamin B12 TSH Urine WBC (Auto) Urine Chloride Urine Total Protein Vancomycin Trough Crossmatch 10/13/16 10/13/16 10/13/16 16:14 16:14 17:17 WBC RBC Hgb Hct MCV RDW Plt Count Lymph % (Auto) [place] % (Auto) [place] # Seg Neutrophils % Seg Neuts % (Manual) Lymphocytes % (Manual) Monocytes % (Manual) Basophils % (Manual) Nucleated RBC % Seg Neutrophils # Seg Neutrophils # Man Lymphocytes # (Manual) Monocytes # (Manual) Eosinophils # (Manual) Basophils # (Manual) PT INR APTT Heparin Anti-Xa Level POC ABG pH POC ABG pCO2 POC ABG pO2 Sodium Potassium Chloride Carbon Dioxide 17 L BUN 58 H Creatinine 1.8 H Glucose 172 H POC Glucose 193 H Calcium 7.7 L Phosphorus Magnesium AST Alkaline Phosphatase C-Reactive Protein 10.50 H Total Protein Albumin Lipase Vitamin B12 TSH Urine WBC (Auto) Urine Chloride Urine Total Protein Vancomycin Trough Crossmatch 10/13/16 10/13/16 10/13/16 17:55 18:32 19:41 WBC RBC Hgb Hct MCV RDW Plt Count Lymph % (Auto) [place] % (Auto) [place] # Seg Neutrophils % Seg Neuts % (Manual) Lymphocytes % (Manual) Monocytes % (Manual) Basophils % (Manual) Nucleated RBC % Seg Neutrophils # Seg Neutrophils # Man Lymphocytes # (Manual) Monocytes # (Manual) Eosinophils # (Manual) Basophils # (Manual) PT INR APTT Heparin Anti-Xa Level POC ABG pH POC ABG pCO2 30.6 L POC ABG pO2 218 H Sodium Potassium Chloride Carbon Dioxide BUN Creatinine Glucose POC Glucose 192 H 177 H Calcium Phosphorus Magnesium AST Alkaline Phosphatase C-Reactive Protein Total Protein Albumin Lipase Vitamin B12 TSH Urine WBC (Auto) Urine Chloride Urine Total Protein Vancomycin Trough Crossmatch 10/13/16 10/13/16 10/13/16 20:54 22:07 23:13 WBC RBC Hgb Hct MCV RDW Plt Count Lymph % (Auto) [place] % (Auto) [place] # Seg Neutrophils % Seg Neuts % (Manual) Lymphocytes % (Manual) Monocytes % (Manual) Basophils % (Manual) Nucleated RBC % Seg Neutrophils # Seg Neutrophils # Man Lymphocytes # (Manual) Monocytes # (Manual) Eosinophils # (Manual) Basophils # (Manual) PT INR APTT Heparin Anti-Xa Level POC ABG pH POC ABG pCO2 POC ABG pO2 Sodium Potassium Chloride Carbon Dioxide BUN Creatinine Glucose POC Glucose 178 H 160 H 168 H Calcium Phosphorus Magnesium AST Alkaline Phosphatase C-Reactive Protein Total Protein Albumin Lipase Vitamin B12 TSH Urine WBC (Auto) Urine Chloride Urine Total Protein Vancomycin Trough Crossmatch 10/13/16 10/13/16 10/14/16 23:25 Unknown 00:21 WBC RBC Hgb Hct MCV RDW Plt Count Lymph % (Auto) [place] % (Auto) [place] # Seg Neutrophils % Seg Neuts % (Manual) Lymphocytes % (Manual) Monocytes % (Manual) Basophils % (Manual) Nucleated RBC % Seg Neutrophils # Seg Neutrophils # Man Lymphocytes # (Manual) Monocytes # (Manual) Eosinophils # (Manual) Basophils # (Manual) PT INR APTT Heparin Anti-Xa Level POC ABG pH POC ABG pCO2 POC ABG pO2 Sodium 148 H Potassium Chloride 114.6 H Carbon Dioxide 17 L BUN 56 H Creatinine 1.6 H Glucose 151 H POC Glucose 171 H Calcium 7.8 L Phosphorus Magnesium AST Alkaline Phosphatase C-Reactive Protein Total Protein Albumin Lipase Vitamin B12 TSH Urine WBC (Auto) Urine Chloride 10.0 L Urine Total Protein < 4 L Vancomycin Trough Crossmatch 10/14/16 10/14/16 10/14/16 01:22 02:29 03:30 WBC RBC Hgb Hct MCV RDW Plt Count Lymph % (Auto) [place] % (Auto) [place] # Seg Neutrophils % Seg Neuts % (Manual) Lymphocytes % (Manual) Monocytes % (Manual) Basophils % (Manual) Nucleated RBC % Seg Neutrophils # Seg Neutrophils # Man Lymphocytes # (Manual) Monocytes # (Manual) Eosinophils # (Manual) Basophils # (Manual) PT INR APTT Heparin Anti-Xa Level POC ABG pH POC ABG pCO2 POC ABG pO2 Sodium Potassium Chloride Carbon Dioxide BUN Creatinine Glucose POC Glucose 144 H 136 H 143 H Calcium Phosphorus Magnesium AST Alkaline Phosphatase C-Reactive Protein Total Protein Albumin Lipase Vitamin B12 TSH Urine WBC (Auto) Urine Chloride Urine Total Protein Vancomycin Trough Crossmatch 10/14/16 10/14/16 10/14/16 04:28 05:16 05:44 WBC RBC Hgb Hct MCV RDW Plt Count Lymph % (Auto) [place] % (Auto) [place] # Seg Neutrophils % Seg Neuts % (Manual) Lymphocytes % (Manual) Monocytes % (Manual) Basophils % (Manual) Nucleated RBC % Seg Neutrophils # Seg Neutrophils # Man Lymphocytes # (Manual) Monocytes # (Manual) Eosinophils # (Manual) Basophils # (Manual) PT INR APTT Heparin Anti-Xa Level POC ABG pH POC ABG pCO2 28.2 L POC ABG pO2 125 H Sodium Potassium Chloride Carbon Dioxide BUN Creatinine Glucose POC Glucose 133 H 160 H Calcium Phosphorus Magnesium AST Alkaline Phosphatase C-Reactive Protein Total Protein Albumin Lipase Vitamin B12 TSH Urine WBC (Auto) Urine Chloride Urine Total Protein Vancomycin Trough Crossmatch 10/14/16 10/14/16 10/14/16 06:12 06:45 07:03 WBC RBC Hgb Hct MCV RDW Plt Count Lymph % (Auto) [place] % (Auto) [place] # Seg Neutrophils % Seg Neuts % (Manual) Lymphocytes % (Manual) Monocytes % (Manual) Basophils % (Manual) Nucleated RBC % Seg Neutrophils # Seg Neutrophils # Man Lymphocytes # (Manual) Monocytes # (Manual) Eosinophils # (Manual) Basophils # (Manual) PT INR APTT Heparin Anti-Xa Level POC ABG pH POC ABG pCO2 POC ABG pO2 Sodium 149 H Potassium Chloride 115.4 H Carbon Dioxide 17 L BUN 45 H Creatinine 1.5 H Glucose 139 H POC Glucose 149 H Calcium 7.4 L Phosphorus 1.0 L D Magnesium AST Alkaline Phosphatase C-Reactive Protein Total Protein Albumin Lipase Vitamin B12 TSH Urine WBC (Auto) Urine Chloride Urine Total Protein Vancomycin Trough Crossmatch 10/14/16 10/14/16 10/14/16 07:03 08:02 09:16 WBC RBC Hgb Hct MCV RDW Plt Count Lymph % (Auto) [place] % (Auto) [place] # Seg Neutrophils % Seg Neuts % (Manual) Lymphocytes % (Manual) Monocytes % (Manual) Basophils % (Manual) Nucleated RBC % Seg Neutrophils # Seg Neutrophils # Man Lymphocytes # (Manual) Monocytes # (Manual) Eosinophils # (Manual) Basophils # (Manual) PT INR APTT Heparin Anti-Xa Level POC ABG pH POC ABG pCO2 POC ABG pO2 Sodium Potassium Chloride Carbon Dioxide BUN Creatinine Glucose POC Glucose 156 H 158 H Calcium Phosphorus Magnesium AST Alkaline Phosphatase C-Reactive Protein Total Protein Albumin Lipase 738 H Vitamin B12 TSH Urine WBC (Auto) Urine Chloride Urine Total Protein Vancomycin Trough Crossmatch 10/14/16 10/14/16 10/14/16 10:26 11:03 11:57 WBC RBC Hgb Hct MCV RDW Plt Count Lymph % (Auto) [place] % (Auto) [place] # Seg Neutrophils % Seg Neuts % (Manual) Lymphocytes % (Manual) Monocytes % (Manual) Basophils % (Manual) Nucleated RBC % Seg Neutrophils # Seg Neutrophils # Man Lymphocytes # (Manual) Monocytes # (Manual) Eosinophils # (Manual) Basophils # (Manual) PT INR APTT Heparin Anti-Xa Level POC ABG pH 7.198 L POC ABG pCO2 47.5 H POC ABG pO2 Sodium Potassium Chloride Carbon Dioxide BUN Creatinine Glucose POC Glucose 174 H 189 H Calcium Phosphorus Magnesium AST Alkaline Phosphatase C-Reactive Protein Total Protein Albumin Lipase Vitamin B12 TSH Urine WBC (Auto) Urine Chloride Urine Total Protein Vancomycin Trough Crossmatch 10/14/16 10/14/16 10/14/16 12:02 12:02 13:11 WBC 13.4 H RBC 3.60 L Hgb Hct MCV 98 H D RDW 13.1 L Plt Count Lymph % (Auto) [place] % (Auto) [place] # Seg Neutrophils % Seg Neuts % (Manual) Lymphocytes % (Manual) Monocytes % (Manual) Basophils % (Manual) Nucleated RBC % Seg Neutrophils # Seg Neutrophils # Man Lymphocytes # (Manual) Monocytes # (Manual) Eosinophils # (Manual) Basophils # (Manual) PT INR APTT Heparin Anti-Xa Level POC ABG pH POC ABG pCO2 POC ABG pO2 Sodium Potassium Chloride 110.7 H Carbon Dioxide 19 L BUN 38 H Creatinine 1.4 H Glucose 182 H POC Glucose 173 H Calcium 7.5 L Phosphorus Magnesium AST Alkaline Phosphatase C-Reactive Protein Total Protein Albumin Lipase Vitamin B12 TSH Urine WBC (Auto) Urine Chloride Urine Total Protein Vancomycin Trough Crossmatch 10/14/16 10/14/16 10/14/16 14:24 15:31 16:36 WBC RBC Hgb Hct MCV RDW Plt Count Lymph % (Auto) [place] % (Auto) [place] # Seg Neutrophils % Seg Neuts % (Manual) Lymphocytes % (Manual) Monocytes % (Manual) Basophils % (Manual) Nucleated RBC % Seg Neutrophils # Seg Neutrophils # Man Lymphocytes # (Manual) Monocytes # (Manual) Eosinophils # (Manual) Basophils # (Manual) PT INR APTT Heparin Anti-Xa Level POC ABG pH POC ABG pCO2 POC ABG pO2 Sodium Potassium Chloride Carbon Dioxide BUN Creatinine Glucose POC Glucose 123 H 124 H 156 H Calcium Phosphorus Magnesium AST Alkaline Phosphatase C-Reactive Protein Total Protein Albumin Lipase Vitamin B12 TSH Urine WBC (Auto) Urine Chloride Urine Total Protein Vancomycin Trough Crossmatch 10/14/16 10/14/16 10/14/16 17:43 19:00 20:08 WBC RBC Hgb Hct MCV RDW Plt Count Lymph % (Auto) [place] % (Auto) [place] # Seg Neutrophils % Seg Neuts % (Manual) Lymphocytes % (Manual) Monocytes % (Manual) Basophils % (Manual) Nucleated RBC % Seg Neutrophils # Seg Neutrophils # Man Lymphocytes # (Manual) Monocytes # (Manual) Eosinophils # (Manual) Basophils # (Manual) PT INR APTT Heparin Anti-Xa Level POC ABG pH POC ABG pCO2 POC ABG pO2 Sodium Potassium Chloride Carbon Dioxide BUN Creatinine Glucose POC Glucose 154 H 123 H 138 H Calcium Phosphorus Magnesium AST Alkaline Phosphatase C-Reactive Protein Total Protein Albumin Lipase Vitamin B12 TSH Urine WBC (Auto) Urine Chloride Urine Total Protein Vancomycin Trough Crossmatch 10/14/16 10/14/16 10/14/16 21:17 22:25 23:37 WBC RBC Hgb Hct MCV RDW Plt Count Lymph % (Auto) [place] % (Auto) [place] # Seg Neutrophils % Seg Neuts % (Manual) Lymphocytes % (Manual) Monocytes % (Manual) Basophils % (Manual) Nucleated RBC % Seg Neutrophils # Seg Neutrophils # Man Lymphocytes # (Manual) Monocytes # (Manual) Eosinophils # (Manual) Basophils # (Manual) PT INR APTT Heparin Anti-Xa Level POC ABG pH POC ABG pCO2 POC ABG pO2 Sodium Potassium Chloride Carbon Dioxide BUN Creatinine Glucose POC Glucose 148 H 132 H 137 H Calcium Phosphorus Magnesium AST Alkaline Phosphatase C-Reactive Protein Total Protein Albumin Lipase Vitamin B12 TSH Urine WBC (Auto) Urine Chloride Urine Total Protein Vancomycin Trough Crossmatch 10/15/16 10/15/16 10/15/16 00:49 01:53 03:06 WBC RBC Hgb Hct MCV RDW Plt Count Lymph % (Auto) [place] % (Auto) [place] # Seg Neutrophils % Seg Neuts % (Manual) Lymphocytes % (Manual) Monocytes % (Manual) Basophils % (Manual) Nucleated RBC % Seg Neutrophils # Seg Neutrophils # Man Lymphocytes # (Manual) Monocytes # (Manual) Eosinophils # (Manual) Basophils # (Manual) PT INR APTT Heparin Anti-Xa Level POC ABG pH POC ABG pCO2 POC ABG pO2 Sodium Potassium Chloride Carbon Dioxide BUN Creatinine Glucose POC Glucose 132 H 134 H 134 H Calcium Phosphorus Magnesium AST Alkaline Phosphatase C-Reactive Protein Total Protein Albumin Lipase Vitamin B12 TSH Urine WBC (Auto) Urine Chloride Urine Total Protein Vancomycin Trough Crossmatch 10/15/16 10/15/16 10/15/16 04:40 04:46 06:21 WBC RBC Hgb Hct MCV RDW Plt Count Lymph % (Auto) [place] % (Auto) [place] # Seg Neutrophils % Seg Neuts % (Manual) Lymphocytes % (Manual) Monocytes % (Manual) Basophils % (Manual) Nucleated RBC % Seg Neutrophils # Seg Neutrophils # Man Lymphocytes # (Manual) Monocytes # (Manual) Eosinophils # (Manual) Basophils # (Manual) PT INR APTT Heparin Anti-Xa Level POC ABG pH POC ABG pCO2 30.7 L POC ABG pO2 108 H Sodium Potassium Chloride 109.0 H Carbon Dioxide 17 L BUN 27 H Creatinine Glucose 124 H POC Glucose 160 H Calcium 7.5 L Phosphorus Magnesium AST 79 H Alkaline Phosphatase C-Reactive Protein Total Protein 5.5 L Albumin 3.0 L Lipase Vitamin B12 TSH Urine WBC (Auto) Urine Chloride Urine Total Protein Vancomycin Trough Crossmatch 10/15/16 10/15/16 10/15/16 07:12 08:01 09:03 WBC RBC Hgb Hct MCV RDW Plt Count Lymph % (Auto) [place] % (Auto) [place] # Seg Neutrophils % Seg Neuts % (Manual) Lymphocytes % (Manual) Monocytes % (Manual) Basophils % (Manual) Nucleated RBC % Seg Neutrophils # Seg Neutrophils # Man Lymphocytes # (Manual) Monocytes # (Manual) Eosinophils # (Manual) Basophils # (Manual) PT INR APTT Heparin Anti-Xa Level POC ABG pH POC ABG pCO2 POC ABG pO2 Sodium Potassium Chloride Carbon Dioxide BUN Creatinine Glucose POC Glucose 179 H 187 H 165 H Calcium Phosphorus Magnesium AST Alkaline Phosphatase C-Reactive Protein Total Protein Albumin Lipase Vitamin B12 TSH Urine WBC (Auto) Urine Chloride Urine Total Protein Vancomycin Trough Crossmatch 10/15/16 10/15/16 10/15/16 10:06 10:06 10:07 WBC 12.1 H RBC 3.01 L Hgb 9.7 L Hct 29.6 L MCV 98 H RDW Plt Count 129 L Lymph % (Auto) [place] % (Auto) [place] # Seg Neutrophils % Seg Neuts % (Manual) Lymphocytes % (Manual) Monocytes % (Manual) Basophils % (Manual) Nucleated RBC % Seg Neutrophils # Seg Neutrophils # Man Lymphocytes # (Manual) Monocytes # (Manual) Eosinophils # (Manual) Basophils # (Manual) PT INR APTT Heparin Anti-Xa Level POC ABG pH POC ABG pCO2 POC ABG pO2 Sodium Potassium 3.2 L D Chloride 109.6 H Carbon Dioxide 18 L BUN 22 H Creatinine Glucose 127 H POC Glucose 147 H Calcium 7.0 L Phosphorus Magnesium AST Alkaline Phosphatase C-Reactive Protein Total Protein Albumin Lipase Vitamin B12 TSH Urine WBC (Auto) Urine Chloride Urine Total Protein Vancomycin Trough Crossmatch 10/15/16 10/15/16 10/15/16 11:05 11:06 11:57 WBC RBC Hgb Hct MCV RDW Plt Count Lymph % (Auto) [place] % (Auto) [place] # Seg Neutrophils % Seg Neuts % (Manual) Lymphocytes % (Manual) Monocytes % (Manual) Basophils % (Manual) Nucleated RBC % Seg Neutrophils # Seg Neutrophils # Man Lymphocytes # (Manual) Monocytes # (Manual) Eosinophils # (Manual) Basophils # (Manual) PT INR APTT Heparin Anti-Xa Level POC ABG pH 7.305 L POC ABG pCO2 POC ABG pO2 Sodium Potassium Chloride Carbon Dioxide BUN Creatinine Glucose POC Glucose 145 H Calcium Phosphorus Magnesium AST Alkaline Phosphatase C-Reactive Protein Total Protein Albumin Lipase Vitamin B12 TSH Urine WBC (Auto) 7.0 H Urine Chloride Urine Total Protein Vancomycin Trough Crossmatch 10/15/16 10/15/16 10/15/16 12:04 13:59 15:24 WBC RBC Hgb Hct MCV RDW Plt Count Lymph % (Auto) [place] % (Auto) [place] # Seg Neutrophils % Seg Neuts % (Manual) Lymphocytes % (Manual) Monocytes % (Manual) Basophils % (Manual) Nucleated RBC % Seg Neutrophils # Seg Neutrophils # Man Lymphocytes # (Manual) Monocytes # (Manual) Eosinophils # (Manual) Basophils # (Manual) PT INR APTT Heparin Anti-Xa Level POC ABG pH POC ABG pCO2 POC ABG pO2 Sodium Potassium Chloride Carbon Dioxide BUN Creatinine Glucose POC Glucose 123 H 147 H 153 H Calcium Phosphorus Magnesium AST Alkaline Phosphatase C-Reactive Protein Total Protein Albumin Lipase Vitamin B12 TSH Urine WBC (Auto) Urine Chloride Urine Total Protein Vancomycin Trough Crossmatch 10/15/16 10/15/16 10/15/16 16:30 17:34 18:30 WBC RBC Hgb Hct MCV RDW Plt Count Lymph % (Auto) [place] % (Auto) [place] # Seg Neutrophils % Seg Neuts % (Manual) Lymphocytes % (Manual) Monocytes % (Manual) Basophils % (Manual) Nucleated RBC % Seg Neutrophils # Seg Neutrophils # Man Lymphocytes # (Manual) Monocytes # (Manual) Eosinophils # (Manual) Basophils # (Manual) PT INR APTT Heparin Anti-Xa Level POC ABG pH POC ABG pCO2 POC ABG pO2 Sodium Potassium Chloride Carbon Dioxide BUN Creatinine Glucose POC Glucose 223 H 236 H 164 H Calcium Phosphorus Magnesium AST Alkaline Phosphatase C-Reactive Protein Total Protein Albumin Lipase Vitamin B12 TSH Urine WBC (Auto) Urine Chloride Urine Total Protein Vancomycin Trough Crossmatch 10/15/16 10/15/16 10/15/16 19:14 20:31 21:23 WBC RBC Hgb Hct MCV RDW Plt Count Lymph % (Auto) [place] % (Auto) [place] # Seg Neutrophils % Seg Neuts % (Manual) Lymphocytes % (Manual) Monocytes % (Manual) Basophils % (Manual) Nucleated RBC % Seg Neutrophils # Seg Neutrophils # Man Lymphocytes # (Manual) Monocytes # (Manual) Eosinophils # (Manual) Basophils # (Manual) PT INR APTT Heparin Anti-Xa Level POC ABG pH POC ABG pCO2 POC ABG pO2 Sodium Potassium Chloride Carbon Dioxide BUN Creatinine Glucose POC Glucose 138 H 158 H 158 H Calcium Phosphorus Magnesium AST Alkaline Phosphatase C-Reactive Protein Total Protein Albumin Lipase Vitamin B12 TSH Urine WBC (Auto) Urine Chloride Urine Total Protein Vancomycin Trough Crossmatch 10/15/16 10/15/16 10/16/16 22:04 22:57 00:11 WBC RBC Hgb Hct MCV RDW Plt Count Lymph % (Auto) [place] % (Auto) [place] # Seg Neutrophils % Seg Neuts % (Manual) Lymphocytes % (Manual) Monocytes % (Manual) Basophils % (Manual) Nucleated RBC % Seg Neutrophils # Seg Neutrophils # Man Lymphocytes # (Manual) Monocytes # (Manual) Eosinophils # (Manual) Basophils # (Manual) PT INR APTT Heparin Anti-Xa Level POC ABG pH POC ABG pCO2 POC ABG pO2 Sodium Potassium Chloride Carbon Dioxide BUN Creatinine Glucose POC Glucose 168 H 213 H 166 H Calcium Phosphorus Magnesium AST Alkaline Phosphatase C-Reactive Protein Total Protein Albumin Lipase Vitamin B12 TSH Urine WBC (Auto) Urine Chloride Urine Total Protein Vancomycin Trough Crossmatch 10/16/16 10/16/16 10/16/16 01:16 02:32 03:38 WBC RBC Hgb Hct MCV RDW Plt Count Lymph % (Auto) [place] % (Auto) [place] # Seg Neutrophils % Seg Neuts % (Manual) Lymphocytes % (Manual) Monocytes % (Manual) Basophils % (Manual) Nucleated RBC % Seg Neutrophils # Seg Neutrophils # Man Lymphocytes # (Manual) Monocytes # (Manual) Eosinophils # (Manual) Basophils # (Manual) PT INR APTT Heparin Anti-Xa Level POC ABG pH POC ABG pCO2 POC ABG pO2 Sodium Potassium Chloride Carbon Dioxide BUN Creatinine Glucose POC Glucose 171 H 164 H 147 H Calcium Phosphorus Magnesium AST Alkaline Phosphatase C-Reactive Protein Total Protein Albumin Lipase Vitamin B12 TSH Urine WBC (Auto) Urine Chloride Urine Total Protein Vancomycin Trough Crossmatch 10/16/16 10/16/16 10/16/16 04:14 04:14 04:49 WBC RBC Hgb Hct MCV RDW Plt Count Lymph % (Auto) [place] % (Auto) [place] # Seg Neutrophils % Seg Neuts % (Manual) Lymphocytes % (Manual) Monocytes % (Manual) Basophils % (Manual) Nucleated RBC % Seg Neutrophils # Seg Neutrophils # Man Lymphocytes # (Manual) Monocytes # (Manual) Eosinophils # (Manual) Basophils # (Manual) PT INR APTT Heparin Anti-Xa Level POC ABG pH POC ABG pCO2 POC ABG pO2 Sodium 147 H Potassium Chloride 110.9 H Carbon Dioxide 19 L BUN Creatinine Glucose 139 H POC Glucose 144 H Calcium 7.3 L Phosphorus 2.3 L Magnesium AST Alkaline Phosphatase C-Reactive Protein Total Protein Albumin Lipase 143 H Vitamin B12 TSH Urine WBC (Auto) Urine Chloride Urine Total Protein Vancomycin Trough Crossmatch 10/16/16 10/16/16 10/16/16 05:03 05:41 05:58 WBC 16.5 H RBC 3.36 L Hgb Hct MCV 98 H RDW 13.1 L Plt Count Lymph % (Auto) 8.5 L [place] % (Auto) 7.6 H [place] # 1.3 H Seg Neutrophils % 83.3 H Seg Neuts % (Manual) Lymphocytes % (Manual) Monocytes % (Manual) Basophils % (Manual) Nucleated RBC % Seg Neutrophils # 13.8 H Seg Neutrophils # Man Lymphocytes # (Manual) Monocytes # (Manual) Eosinophils # (Manual) Basophils # (Manual) PT INR APTT Heparin Anti-Xa Level POC ABG pH POC ABG pCO2 30.7 L POC ABG pO2 128 H Sodium Potassium Chloride Carbon Dioxide BUN Creatinine Glucose POC Glucose 131 H Calcium Phosphorus Magnesium AST Alkaline Phosphatase C-Reactive Protein Total Protein Albumin Lipase Vitamin B12 TSH Urine WBC (Auto) Urine Chloride Urine Total Protein Vancomycin Trough Crossmatch 10/16/16 10/16/16 10/16/16 06:32 09:27 09:35 WBC RBC Hgb Hct MCV RDW Plt Count Lymph % (Auto) [place] % (Auto) [place] # Seg Neutrophils % Seg Neuts % (Manual) Lymphocytes % (Manual) Monocytes % (Manual) Basophils % (Manual) Nucleated RBC % Seg Neutrophils # Seg Neutrophils # Man Lymphocytes # (Manual) Monocytes # (Manual) Eosinophils # (Manual) Basophils # (Manual) PT INR APTT Heparin Anti-Xa Level POC ABG pH POC ABG pCO2 32.8 L POC ABG pO2 137 H Sodium Potassium Chloride Carbon Dioxide BUN Creatinine Glucose POC Glucose 121 H 150 H Calcium Phosphorus Magnesium AST Alkaline Phosphatase C-Reactive Protein Total Protein Albumin Lipase Vitamin B12 TSH Urine WBC (Auto) Urine Chloride Urine Total Protein Vancomycin Trough Crossmatch 10/16/16 10/16/16 10/16/16 10:47 13:27 14:24 WBC RBC Hgb Hct MCV RDW Plt Count Lymph % (Auto) [place] % (Auto) [place] # Seg Neutrophils % Seg Neuts % (Manual) Lymphocytes % (Manual) Monocytes % (Manual) Basophils % (Manual) Nucleated RBC % Seg Neutrophils # Seg Neutrophils # Man Lymphocytes # (Manual) Monocytes # (Manual) Eosinophils # (Manual) Basophils # (Manual) PT INR APTT Heparin Anti-Xa Level POC ABG pH POC ABG pCO2 POC ABG pO2 Sodium Potassium Chloride Carbon Dioxide BUN Creatinine Glucose POC Glucose 184 H 171 H 174 H Calcium Phosphorus Magnesium AST Alkaline Phosphatase C-Reactive Protein Total Protein Albumin Lipase Vitamin B12 TSH Urine WBC (Auto) Urine Chloride Urine Total Protein Vancomycin Trough Crossmatch 10/16/16 10/16/16 10/16/16 15:48 16:26 18:17 WBC RBC Hgb Hct MCV RDW Plt Count Lymph % (Auto) [place] % (Auto) [place] # Seg Neutrophils % Seg Neuts % (Manual) Lymphocytes % (Manual) Monocytes % (Manual) Basophils % (Manual) Nucleated RBC % Seg Neutrophils # Seg Neutrophils # Man Lymphocytes # (Manual) Monocytes # (Manual) Eosinophils # (Manual) Basophils # (Manual) PT INR APTT Heparin Anti-Xa Level POC ABG pH POC ABG pCO2 POC ABG pO2 Sodium Potassium Chloride Carbon Dioxide BUN Creatinine Glucose POC Glucose 205 H 204 H 234 H Calcium Phosphorus Magnesium AST Alkaline Phosphatase C-Reactive Protein Total Protein Albumin Lipase Vitamin B12 TSH Urine WBC (Auto) Urine Chloride Urine Total Protein Vancomycin Trough Crossmatch 10/16/16 10/16/16 10/16/16 19:40 20:33 21:36 WBC RBC Hgb Hct MCV RDW Plt Count Lymph % (Auto) [place] % (Auto) [place] # Seg Neutrophils % Seg Neuts % (Manual) Lymphocytes % (Manual) Monocytes % (Manual) Basophils % (Manual) Nucleated RBC % Seg Neutrophils # Seg Neutrophils # Man Lymphocytes # (Manual) Monocytes # (Manual) Eosinophils # (Manual) Basophils # (Manual) PT INR APTT Heparin Anti-Xa Level POC ABG pH POC ABG pCO2 POC ABG pO2 Sodium Potassium Chloride Carbon Dioxide BUN Creatinine Glucose POC Glucose 167 H 153 H 158 H Calcium Phosphorus Magnesium AST Alkaline Phosphatase C-Reactive Protein Total Protein Albumin Lipase Vitamin B12 TSH Urine WBC (Auto) Urine Chloride Urine Total Protein Vancomycin Trough Crossmatch 10/16/16 10/16/16 10/17/16 22:54 23:48 00:47 WBC RBC Hgb Hct MCV RDW Plt Count Lymph % (Auto) [place] % (Auto) [place] # Seg Neutrophils % Seg Neuts % (Manual) Lymphocytes % (Manual) Monocytes % (Manual) Basophils % (Manual) Nucleated RBC % Seg Neutrophils # Seg Neutrophils # Man Lymphocytes # (Manual) Monocytes # (Manual) Eosinophils # (Manual) Basophils # (Manual) PT INR APTT Heparin Anti-Xa Level POC ABG pH POC ABG pCO2 POC ABG pO2 Sodium Potassium Chloride Carbon Dioxide BUN Creatinine Glucose POC Glucose 180 H 207 H 196 H Calcium Phosphorus Magnesium AST Alkaline Phosphatase C-Reactive Protein Total Protein Albumin Lipase Vitamin B12 TSH Urine WBC (Auto) Urine Chloride Urine Total Protein Vancomycin Trough Crossmatch 10/17/16 10/17/16 10/17/16 01:57 02:49 03:50 WBC RBC Hgb Hct MCV RDW Plt Count Lymph % (Auto) [place] % (Auto) [place] # Seg Neutrophils % Seg Neuts % (Manual) Lymphocytes % (Manual) Monocytes % (Manual) Basophils % (Manual) Nucleated RBC % Seg Neutrophils # Seg Neutrophils # Man Lymphocytes # (Manual) Monocytes # (Manual) Eosinophils # (Manual) Basophils # (Manual) PT INR APTT Heparin Anti-Xa Level POC ABG pH POC ABG pCO2 POC ABG pO2 Sodium Potassium Chloride Carbon Dioxide BUN Creatinine Glucose POC Glucose 180 H 151 H 106 H Calcium Phosphorus Magnesium AST Alkaline Phosphatase C-Reactive Protein Total Protein Albumin Lipase Vitamin B12 TSH Urine WBC (Auto) Urine Chloride Urine Total Protein Vancomycin Trough Crossmatch 10/17/16 10/17/16 10/17/16 04:59 06:03 06:35 WBC RBC Hgb Hct MCV RDW Plt Count Lymph % (Auto) [place] % (Auto) [place] # Seg Neutrophils % Seg Neuts % (Manual) Lymphocytes % (Manual) Monocytes % (Manual) Basophils % (Manual) Nucleated RBC % Seg Neutrophils # Seg Neutrophils # Man Lymphocytes # (Manual) Monocytes # (Manual) Eosinophils # (Manual) Basophils # (Manual) PT INR APTT Heparin Anti-Xa Level POC ABG pH 7.453 H POC ABG pCO2 30.1 L POC ABG pO2 111 H Sodium Potassium Chloride Carbon Dioxide BUN Creatinine Glucose POC Glucose 145 H 157 H Calcium Phosphorus Magnesium AST Alkaline Phosphatase C-Reactive Protein Total Protein Albumin Lipase Vitamin B12 TSH Urine WBC (Auto) Urine Chloride Urine Total Protein Vancomycin Trough Crossmatch 10/17/16 10/17/16 10/17/16 07:08 07:11 08:01 WBC RBC Hgb Hct MCV RDW Plt Count Lymph % (Auto) [place] % (Auto) [place] # Seg Neutrophils % Seg Neuts % (Manual) Lymphocytes % (Manual) Monocytes % (Manual) Basophils % (Manual) Nucleated RBC % Seg Neutrophils # Seg Neutrophils # Man Lymphocytes # (Manual) Monocytes # (Manual) Eosinophils # (Manual) Basophils # (Manual) PT INR APTT Heparin Anti-Xa Level POC ABG pH POC ABG pCO2 POC ABG pO2 Sodium 147 H Potassium Chloride 113.8 H Carbon Dioxide 19 L BUN Creatinine Glucose 136 H POC Glucose 136 H 152 H Calcium 7.7 L Phosphorus Magnesium AST Alkaline Phosphatase C-Reactive Protein Total Protein Albumin Lipase Vitamin B12 TSH Urine WBC (Auto) Urine Chloride Urine Total Protein Vancomycin Trough Crossmatch 10/17/16 10/17/16 10/17/16 08:23 09:17 09:53 WBC 18.1 H RBC 3.01 L Hgb 9.7 L Hct 29.4 L MCV 98 H RDW Plt Count 116 L Lymph % (Auto) [place] % (Auto) [place] # Seg Neutrophils % Seg Neuts % (Manual) 77.0 H Lymphocytes % (Manual) 4.0 L Monocytes % (Manual) 12.0 H Basophils % (Manual) Nucleated RBC % Seg Neutrophils # Seg Neutrophils # Man 13.9 H Lymphocytes # (Manual) 0.7 L Monocytes # (Manual) 2.2 H Eosinophils # (Manual) Basophils # (Manual) PT INR APTT Heparin Anti-Xa Level POC ABG pH POC ABG pCO2 POC ABG pO2 Sodium Potassium Chloride Carbon Dioxide BUN Creatinine Glucose POC Glucose 148 H 137 H Calcium Phosphorus Magnesium AST Alkaline Phosphatase C-Reactive Protein Total Protein Albumin Lipase Vitamin B12 TSH Urine WBC (Auto) Urine Chloride Urine Total Protein Vancomycin Trough Crossmatch 10/17/16 10/17/16 10/17/16 11:43 16:07 17:42 WBC RBC Hgb Hct MCV RDW Plt Count Lymph % (Auto) [place] % (Auto) [place] # Seg Neutrophils % Seg Neuts % (Manual) Lymphocytes % (Manual) Monocytes % (Manual) Basophils % (Manual) Nucleated RBC % Seg Neutrophils # Seg Neutrophils # Man Lymphocytes # (Manual) Monocytes # (Manual) Eosinophils # (Manual) Basophils # (Manual) PT 16.4 H INR 1.33 H APTT 38.8 H Heparin Anti-Xa Level POC ABG pH POC ABG pCO2 POC ABG pO2 Sodium Potassium Chloride Carbon Dioxide BUN Creatinine Glucose POC Glucose 179 H 153 H Calcium Phosphorus Magnesium AST Alkaline Phosphatase C-Reactive Protein Total Protein Albumin Lipase Vitamin B12 TSH Urine WBC (Auto) Urine Chloride Urine Total Protein Vancomycin Trough Crossmatch 10/17/16 10/18/16 10/18/16 22:54 04:37 05:39 WBC RBC Hgb Hct MCV RDW Plt Count Lymph % (Auto) [place] % (Auto) [place] # Seg Neutrophils % Seg Neuts % (Manual) Lymphocytes % (Manual) Monocytes % (Manual) Basophils % (Manual) Nucleated RBC % Seg Neutrophils # Seg Neutrophils # Man Lymphocytes # (Manual) Monocytes # (Manual) Eosinophils # (Manual) Basophils # (Manual) PT INR APTT Heparin Anti-Xa Level 0.27 L POC ABG pH 7.454 H POC ABG pCO2 30.8 L POC ABG pO2 115 H Sodium Potassium Chloride Carbon Dioxide BUN Creatinine Glucose POC Glucose 69 L Calcium Phosphorus Magnesium AST Alkaline Phosphatase C-Reactive Protein Total Protein Albumin Lipase Vitamin B12 TSH Urine WBC (Auto) Urine Chloride Urine Total Protein Vancomycin Trough Crossmatch 10/18/16 10/18/16 10/18/16 06:46 06:46 06:46 WBC 20.5 H RBC 2.62 L Hgb 8.4 L Hct 26.0 L MCV 100 H RDW Plt Count Lymph % (Auto) [place] % (Auto) [place] # Seg Neutrophils % Seg Neuts % (Manual) 75.0 H Lymphocytes % (Manual) 9.0 L Monocytes % (Manual) 14.0 H Basophils % (Manual) Nucleated RBC % Seg Neutrophils # Seg Neutrophils # Man 15.4 H Lymphocytes # (Manual) Monocytes # (Manual) 2.9 H Eosinophils # (Manual) Basophils # (Manual) PT INR APTT Heparin Anti-Xa Level POC ABG pH POC ABG pCO2 POC ABG pO2 Sodium Potassium Chloride 110.6 H Carbon Dioxide BUN Creatinine 1.3 H Glucose 153 H POC Glucose Calcium 8.0 L Phosphorus Magnesium 1.6 L AST Alkaline Phosphatase C-Reactive Protein Total Protein Albumin Lipase Vitamin B12 TSH Urine WBC (Auto) Urine Chloride Urine Total Protein Vancomycin Trough Crossmatch 10/18/16 10/18/16 10/18/16 07:30 11:37 17:51 WBC RBC Hgb Hct MCV RDW Plt Count Lymph % (Auto) [place] % (Auto) [place] # Seg Neutrophils % Seg Neuts % (Manual) Lymphocytes % (Manual) Monocytes % (Manual) Basophils % (Manual) Nucleated RBC % Seg Neutrophils # Seg Neutrophils # Man Lymphocytes # (Manual) Monocytes # (Manual) Eosinophils # (Manual) Basophils # (Manual) PT INR APTT Heparin Anti-Xa Level POC ABG pH POC ABG pCO2 POC ABG pO2 Sodium Potassium Chloride Carbon Dioxide BUN Creatinine Glucose POC Glucose 162 H 156 H 164 H Calcium Phosphorus Magnesium AST Alkaline Phosphatase C-Reactive Protein Total Protein Albumin Lipase Vitamin B12 TSH Urine WBC (Auto) Urine Chloride Urine Total Protein Vancomycin Trough Crossmatch 10/18/16 10/19/16 10/19/16 23:44 03:59 05:13 WBC 18.2 H RBC 2.76 L Hgb 9.0 L Hct 27.7 L MCV 100 H RDW Plt Count Lymph % (Auto) [place] % (Auto) [place] # Seg Neutrophils % Seg Neuts % (Manual) 76.0 H Lymphocytes % (Manual) 10.0 L Monocytes % (Manual) Basophils % (Manual) Nucleated RBC % Seg Neutrophils # Seg Neutrophils # Man 13.8 H Lymphocytes # (Manual) Monocytes # (Manual) Eosinophils # (Manual) Basophils # (Manual) PT INR APTT Heparin Anti-Xa Level POC ABG pH POC ABG pCO2 32.2 L POC ABG pO2 128 H Sodium Potassium Chloride Carbon Dioxide BUN Creatinine Glucose POC Glucose 278 H Calcium Phosphorus Magnesium AST Alkaline Phosphatase C-Reactive Protein Total Protein Albumin Lipase Vitamin B12 TSH Urine WBC (Auto) Urine Chloride Urine Total Protein Vancomycin Trough Crossmatch 10/19/16 10/19/16 10/19/16 06:01 06:30 12:20 WBC RBC Hgb Hct MCV RDW Plt Count Lymph % (Auto) [place] % (Auto) [place] # Seg Neutrophils % Seg Neuts % (Manual) Lymphocytes % (Manual) Monocytes % (Manual) Basophils % (Manual) Nucleated RBC % Seg Neutrophils # Seg Neutrophils # Man Lymphocytes # (Manual) Monocytes # (Manual) Eosinophils # (Manual) Basophils # (Manual) PT INR APTT Heparin Anti-Xa Level POC ABG pH POC ABG pCO2 POC ABG pO2 Sodium Potassium Chloride Carbon Dioxide 18 L BUN Creatinine 1.3 H Glucose 262 H POC Glucose 261 H 349 H Calcium 7.7 L Phosphorus 4.8 H D Magnesium AST Alkaline Phosphatase C-Reactive Protein Total Protein Albumin Lipase Vitamin B12 TSH Urine WBC (Auto) Urine Chloride Urine Total Protein Vancomycin Trough Crossmatch 10/19/16 10/20/16 10/20/16 16:48 00:17 05:20 WBC 22.5 H RBC 2.80 L Hgb 8.9 L Hct 28.3 L MCV 101 H RDW Plt Count Lymph % (Auto) [place] % (Auto) [place] # Seg Neutrophils % Seg Neuts % (Manual) Lymphocytes % (Manual) 10.0 L Monocytes % (Manual) Basophils % (Manual) Nucleated RBC % Seg Neutrophils # Seg Neutrophils # Man 13.3 H Lymphocytes # (Manual) Monocytes # (Manual) 1.1 H Eosinophils # (Manual) 0.7 H Basophils # (Manual) PT INR APTT Heparin Anti-Xa Level POC ABG pH POC ABG pCO2 POC ABG pO2 Sodium Potassium Chloride Carbon Dioxide BUN Creatinine Glucose POC Glucose 248 H 346 H Calcium Phosphorus Magnesium AST Alkaline Phosphatase C-Reactive Protein Total Protein Albumin Lipase Vitamin B12 TSH Urine WBC (Auto) Urine Chloride Urine Total Protein Vancomycin Trough Crossmatch 10/20/16 10/20/16 10/20/16 05:20 05:20 06:05 WBC RBC Hgb Hct MCV RDW Plt Count Lymph % (Auto) [place] % (Auto) [place] # Seg Neutrophils % Seg Neuts % (Manual) Lymphocytes % (Manual) Monocytes % (Manual) Basophils % (Manual) Nucleated RBC % Seg Neutrophils # Seg Neutrophils # Man Lymphocytes # (Manual) Monocytes # (Manual) Eosinophils # (Manual) Basophils # (Manual) PT INR APTT Heparin Anti-Xa Level 0.20 L POC ABG pH POC ABG pCO2 POC ABG pO2 Sodium Potassium Chloride Carbon Dioxide BUN 20 H Creatinine Glucose 374 H POC Glucose 337 H Calcium 8.3 L Phosphorus Magnesium AST Alkaline Phosphatase C-Reactive Protein Total Protein Albumin Lipase Vitamin B12 TSH Urine WBC (Auto) Urine Chloride Urine Total Protein Vancomycin Trough Crossmatch 10/20/16 10/20/16 10/20/16 11:49 13:59 17:56 WBC RBC Hgb Hct MCV RDW Plt Count Lymph % (Auto) [place] % (Auto) [place] # Seg Neutrophils % Seg Neuts % (Manual) Lymphocytes % (Manual) Monocytes % (Manual) Basophils % (Manual) Nucleated RBC % Seg Neutrophils # Seg Neutrophils # Man Lymphocytes # (Manual) Monocytes # (Manual) Eosinophils # (Manual) Basophils # (Manual) PT INR APTT Heparin Anti-Xa Level 2.00 H POC ABG pH POC ABG pCO2 POC ABG pO2 Sodium Potassium Chloride Carbon Dioxide BUN Creatinine Glucose POC Glucose 305 H 362 H Calcium Phosphorus Magnesium AST Alkaline Phosphatase C-Reactive Protein Total Protein Albumin Lipase Vitamin B12 TSH Urine WBC (Auto) Urine Chloride Urine Total Protein Vancomycin Trough Crossmatch 10/20/16 10/21/16 10/21/16 23:52 05:00 05:49 WBC 22.9 H RBC 2.49 L Hgb 7.7 L Hct 25.6 L MCV 103 H RDW Plt Count Lymph % (Auto) [place] % (Auto) [place] # Seg Neutrophils % Seg Neuts % (Manual) 94.0 H Lymphocytes % (Manual) 1.0 L Monocytes % (Manual) Basophils % (Manual) Nucleated RBC % Seg Neutrophils # Seg Neutrophils # Man 21.5 H Lymphocytes # (Manual) 0.2 L Monocytes # (Manual) 1.1 H Eosinophils # (Manual) Basophils # (Manual) PT INR APTT Heparin Anti-Xa Level POC ABG pH POC ABG pCO2 POC ABG pO2 Sodium Potassium Chloride Carbon Dioxide BUN Creatinine Glucose POC Glucose 252 H 180 H Calcium Phosphorus Magnesium AST Alkaline Phosphatase C-Reactive Protein Total Protein Albumin Lipase Vitamin B12 TSH Urine WBC (Auto) Urine Chloride Urine Total Protein Vancomycin Trough Crossmatch 10/21/16 10/21/16 10/21/16 11:47 11:49 14:10 WBC RBC Hgb Hct MCV RDW Plt Count Lymph % (Auto) [place] % (Auto) [place] # Seg Neutrophils % Seg Neuts % (Manual) Lymphocytes % (Manual) Monocytes % (Manual) Basophils % (Manual) Nucleated RBC % Seg Neutrophils # Seg Neutrophils # Man Lymphocytes # (Manual) Monocytes # (Manual) Eosinophils # (Manual) Basophils # (Manual) PT INR APTT Heparin Anti-Xa Level POC ABG pH POC ABG pCO2 POC ABG pO2 Sodium Potassium Chloride Carbon Dioxide BUN Creatinine Glucose POC Glucose 50 L 56 L 140 H Calcium Phosphorus Magnesium AST Alkaline Phosphatase C-Reactive Protein Total Protein Albumin Lipase Vitamin B12 TSH Urine WBC (Auto) Urine Chloride Urine Total Protein Vancomycin Trough Crossmatch 10/21/16 10/21/16 10/22/16 18:24 Unknown 00:07 WBC RBC Hgb Hct MCV RDW Plt Count Lymph % (Auto) [place] % (Auto) [place] # Seg Neutrophils % Seg Neuts % (Manual) Lymphocytes % (Manual) Monocytes % (Manual) Basophils % (Manual) Nucleated RBC % Seg Neutrophils # Seg Neutrophils # Man Lymphocytes # (Manual) Monocytes # (Manual) Eosinophils # (Manual) Basophils # (Manual) PT INR APTT Heparin Anti-Xa Level POC ABG pH POC ABG pCO2 POC ABG pO2 Sodium 150 H Potassium 3.1 L Chloride 112.4 H Carbon Dioxide BUN 25 H Creatinine 1.4 H Glucose POC Glucose 175 H 218 H Calcium 8.0 L Phosphorus Magnesium AST Alkaline Phosphatase C-Reactive Protein Total Protein Albumin Lipase Vitamin B12 TSH Urine WBC (Auto) Urine Chloride Urine Total Protein Vancomycin Trough Crossmatch 10/22/16 10/22/16 10/22/16 04:20 04:20 10:25 WBC 20.8 H RBC 2.37 L Hgb 7.5 L Hct 23.9 L MCV 101 H RDW Plt Count Lymph % (Auto) [place] % (Auto) [place] # Seg Neutrophils % Seg Neuts % (Manual) 89.0 H Lymphocytes % (Manual) 7.0 L Monocytes % (Manual) Basophils % (Manual) Nucleated RBC % Seg Neutrophils # Seg Neutrophils # Man 18.5 H Lymphocytes # (Manual) Monocytes # (Manual) Eosinophils # (Manual) Basophils # (Manual) 0.2 H PT INR APTT Heparin Anti-Xa Level POC ABG pH POC ABG pCO2 POC ABG pO2 Sodium 148 H Potassium 2.9 L* Chloride 109.4 H Carbon Dioxide BUN 26 H Creatinine Glucose 140 H POC Glucose Calcium 7.5 L Phosphorus Magnesium AST Alkaline Phosphatase C-Reactive Protein Total Protein Albumin Lipase Vitamin B12 976.8 H TSH Urine WBC (Auto) Urine Chloride Urine Total Protein Vancomycin Trough Crossmatch 10/22/16 10/22/16 10/22/16 10:25 14:50 18:16 WBC RBC Hgb Hct MCV RDW Plt Count Lymph % (Auto) [place] % (Auto) [place] # Seg Neutrophils % Seg Neuts % (Manual) Lymphocytes % (Manual) Monocytes % (Manual) Basophils % (Manual) Nucleated RBC % Seg Neutrophils # Seg Neutrophils # Man Lymphocytes # (Manual) Monocytes # (Manual) Eosinophils # (Manual) Basophils # (Manual) PT INR APTT Heparin Anti-Xa Level POC ABG pH POC ABG pCO2 POC ABG pO2 Sodium Potassium Chloride Carbon Dioxide BUN Creatinine Glucose POC Glucose 193 H Calcium Phosphorus Magnesium AST Alkaline Phosphatase C-Reactive Protein Total Protein Albumin Lipase Vitamin B12 TSH 0.143 L 0.162 L Urine WBC (Auto) Urine Chloride Urine Total Protein Vancomycin Trough Crossmatch 10/22/16 10/22/16 10/22/16 20:00 20:00 20:00 WBC 24.1 H RBC 2.58 L Hgb 8.2 L Hct 26.4 L MCV 102 H RDW Plt Count Lymph % (Auto) [place] % (Auto) [place] # Seg Neutrophils % Seg Neuts % (Manual) 74.0 H Lymphocytes % (Manual) 7.0 L Monocytes % (Manual) Basophils % (Manual) Nucleated RBC % Seg Neutrophils # Seg Neutrophils # Man 17.8 H Lymphocytes # (Manual) Monocytes # (Manual) Eosinophils # (Manual) Basophils # (Manual) PT INR APTT Heparin Anti-Xa Level 1.92 H POC ABG pH POC ABG pCO2 POC ABG pO2 Sodium Potassium Chloride Carbon Dioxide BUN Creatinine Glucose POC Glucose Calcium Phosphorus Magnesium AST Alkaline Phosphatase C-Reactive Protein Total Protein Albumin Lipase Vitamin B12 TSH Urine WBC (Auto) Urine Chloride Urine Total Protein Vancomycin Trough Crossmatch See Detail 10/23/16 10/23/16 10/23/16 00:21 06:09 12:07 WBC RBC Hgb Hct MCV RDW Plt Count Lymph % (Auto) [place] % (Auto) [place] # Seg Neutrophils % Seg Neuts % (Manual) Lymphocytes % (Manual) Monocytes % (Manual) Basophils % (Manual) Nucleated RBC % Seg Neutrophils # Seg Neutrophils # Man Lymphocytes # (Manual) Monocytes # (Manual) Eosinophils # (Manual) Basophils # (Manual) PT INR APTT Heparin Anti-Xa Level POC ABG pH POC ABG pCO2 POC ABG pO2 Sodium Potassium Chloride Carbon Dioxide BUN Creatinine Glucose POC Glucose 283 H 241 H 340 H Calcium Phosphorus Magnesium AST Alkaline Phosphatase C-Reactive Protein Total Protein Albumin Lipase Vitamin B12 TSH Urine WBC (Auto) Urine Chloride Urine Total Protein Vancomycin Trough Crossmatch 10/23/16 10/23/16 10/23/16 14:01 16:00 17:59 WBC RBC Hgb Hct MCV RDW Plt Count Lymph % (Auto) [place] % (Auto) [place] # Seg Neutrophils % Seg Neuts % (Manual) Lymphocytes % (Manual) Monocytes % (Manual) Basophils % (Manual) Nucleated RBC % Seg Neutrophils # Seg Neutrophils # Man Lymphocytes # (Manual) Monocytes # (Manual) Eosinophils # (Manual) Basophils # (Manual) PT INR APTT Heparin Anti-Xa Level 0.19 L POC ABG pH POC ABG pCO2 32.4 L POC ABG pO2 Sodium Potassium Chloride Carbon Dioxide BUN Creatinine Glucose POC Glucose 245 H Calcium Phosphorus Magnesium AST Alkaline Phosphatase C-Reactive Protein Total Protein Albumin Lipase Vitamin B12 TSH Urine WBC (Auto) Urine Chloride Urine Total Protein Vancomycin Trough Crossmatch 10/23/16 10/23/16 10/23/16 22:55 Unknown Unknown WBC 22.6 H RBC 3.26 L Hgb Hct MCV RDW 17.1 H Plt Count Lymph % (Auto) [place] % (Auto) [place] # Seg Neutrophils % Seg Neuts % (Manual) Lymphocytes % (Manual) 11.0 L Monocytes % (Manual) Basophils % (Manual) Nucleated RBC % Seg Neutrophils # Seg Neutrophils # Man 14.0 H Lymphocytes # (Manual) Monocytes # (Manual) Eosinophils # (Manual) Basophils # (Manual) PT INR APTT Heparin Anti-Xa Level 0.17 L 0.15 L POC ABG pH POC ABG pCO2 POC ABG pO2 Sodium Potassium Chloride Carbon Dioxide BUN Creatinine Glucose POC Glucose Calcium Phosphorus Magnesium AST Alkaline Phosphatase C-Reactive Protein Total Protein Albumin Lipase Vitamin B12 TSH Urine WBC (Auto) Urine Chloride Urine Total Protein Vancomycin Trough Crossmatch 10/23/16 10/24/16 10/24/16 Unknown 00:05 05:30 WBC RBC Hgb Hct MCV RDW Plt Count Lymph % (Auto) [place] % (Auto) [place] # Seg Neutrophils % Seg Neuts % (Manual) Lymphocytes % (Manual) Monocytes % (Manual) Basophils % (Manual) Nucleated RBC % Seg Neutrophils # Seg Neutrophils # Man Lymphocytes # (Manual) Monocytes # (Manual) Eosinophils # (Manual) Basophils # (Manual) PT INR APTT Heparin Anti-Xa Level 0.13 L POC ABG pH POC ABG pCO2 POC ABG pO2 Sodium Potassium Chloride 111.2 H Carbon Dioxide 20 L BUN 25 H Creatinine Glucose 227 H POC Glucose 118 H Calcium 7.1 L Phosphorus Magnesium AST Alkaline Phosphatase C-Reactive Protein Total Protein Albumin Lipase Vitamin B12 TSH Urine WBC (Auto) Urine Chloride Urine Total Protein Vancomycin Trough Crossmatch 10/24/16 10/24/16 10/24/16 11:00 11:00 12:06 WBC 17.6 H RBC 2.92 L Hgb 9.2 L Hct 28.3 L MCV RDW 16.9 H Plt Count Lymph % (Auto) [place] % (Auto) [place] # Seg Neutrophils % Seg Neuts % (Manual) Lymphocytes % (Manual) Monocytes % (Manual) Basophils % (Manual) Nucleated RBC % Seg Neutrophils # Seg Neutrophils # Man Lymphocytes # (Manual) Monocytes # (Manual) Eosinophils # (Manual) Basophils # (Manual) PT INR APTT Heparin Anti-Xa Level 0.27 L POC ABG pH POC ABG pCO2 POC ABG pO2 Sodium Potassium Chloride Carbon Dioxide BUN Creatinine Glucose POC Glucose 166 H Calcium Phosphorus Magnesium AST Alkaline Phosphatase C-Reactive Protein Total Protein Albumin Lipase Vitamin B12 TSH Urine WBC (Auto) Urine Chloride Urine Total Protein Vancomycin Trough Crossmatch 10/24/16 10/25/16 10/25/16 12:27 00:49 03:30 WBC RBC Hgb 8.8 L Hct 28.1 L MCV RDW Plt Count Lymph % (Auto) [place] % (Auto) [place] # Seg Neutrophils % Seg Neuts % (Manual) Lymphocytes % (Manual) Monocytes % (Manual) Basophils % (Manual) Nucleated RBC % Seg Neutrophils # Seg Neutrophils # Man Lymphocytes # (Manual) Monocytes # (Manual) Eosinophils # (Manual) Basophils # (Manual) PT INR APTT Heparin Anti-Xa Level POC ABG pH POC ABG pCO2 33.9 L POC ABG pO2 Sodium Potassium Chloride Carbon Dioxide BUN Creatinine Glucose POC Glucose 121 H Calcium Phosphorus Magnesium AST Alkaline Phosphatase C-Reactive Protein Total Protein Albumin Lipase Vitamin B12 TSH Urine WBC (Auto) Urine Chloride Urine Total Protein Vancomycin Trough Crossmatch 10/25/16 10/25/16 10/25/16 09:49 12:10 19:25 WBC 21.1 H RBC 3.02 L Hgb 9.3 L Hct 28.9 L MCV RDW 16.3 H Plt Count Lymph % (Auto) [place] % (Auto) [place] # Seg Neutrophils % Seg Neuts % (Manual) 81.0 H Lymphocytes % (Manual) 9.0 L Monocytes % (Manual) Basophils % (Manual) Nucleated RBC % Seg Neutrophils # Seg Neutrophils # Man 17.1 H Lymphocytes # (Manual) Monocytes # (Manual) Eosinophils # (Manual) Basophils # (Manual) PT INR APTT Heparin Anti-Xa Level POC ABG pH POC ABG pCO2 POC ABG pO2 Sodium Potassium Chloride Carbon Dioxide BUN Creatinine Glucose POC Glucose 158 H 151 H Calcium Phosphorus Magnesium AST Alkaline Phosphatase C-Reactive Protein Total Protein Albumin Lipase Vitamin B12 TSH Urine WBC (Auto) Urine Chloride Urine Total Protein Vancomycin Trough Crossmatch 10/26/16 10/26/16 10/26/16 00:20 01:09 05:02 WBC 22.2 H RBC 2.89 L Hgb 8.7 L Hct 27.8 L MCV RDW 16.4 H Plt Count Lymph % (Auto) [place] % (Auto) [place] # Seg Neutrophils % Seg Neuts % (Manual) Lymphocytes % (Manual) Monocytes % (Manual) Basophils % (Manual) Nucleated RBC % Seg Neutrophils # Seg Neutrophils # Man Lymphocytes # (Manual) Monocytes # (Manual) Eosinophils # (Manual) Basophils # (Manual) PT INR APTT Heparin Anti-Xa Level POC ABG pH POC ABG pCO2 POC ABG pO2 Sodium Potassium Chloride Carbon Dioxide BUN Creatinine Glucose POC Glucose 44 L 112 H Calcium Phosphorus Magnesium AST Alkaline Phosphatase C-Reactive Protein Total Protein Albumin Lipase Vitamin B12 TSH Urine WBC (Auto) Urine Chloride Urine Total Protein Vancomycin Trough Crossmatch 10/26/16 10/26/16 10/26/16 05:02 12:11 12:14 WBC RBC Hgb Hct MCV RDW Plt Count Lymph % (Auto) [place] % (Auto) [place] # Seg Neutrophils % Seg Neuts % (Manual) Lymphocytes % (Manual) Monocytes % (Manual) Basophils % (Manual) Nucleated RBC % Seg Neutrophils # Seg Neutrophils # Man Lymphocytes # (Manual) Monocytes # (Manual) Eosinophils # (Manual) Basophils # (Manual) PT INR APTT Heparin Anti-Xa Level POC ABG pH POC ABG pCO2 32.0 L POC ABG pO2 33 L Sodium Potassium 3.2 L D Chloride Carbon Dioxide 20 L BUN 24 H Creatinine Glucose 104 H POC Glucose 194 H Calcium 7.7 L Phosphorus Magnesium AST Alkaline Phosphatase C-Reactive Protein Total Protein Albumin Lipase Vitamin B12 TSH Urine WBC (Auto) Urine Chloride Urine Total Protein Vancomycin Trough Crossmatch 10/26/16 10/26/16 10/27/16 15:28 17:23 00:04 WBC RBC Hgb Hct MCV RDW Plt Count Lymph % (Auto) [place] % (Auto) [place] # Seg Neutrophils % Seg Neuts % (Manual) Lymphocytes % (Manual) Monocytes % (Manual) Basophils % (Manual) Nucleated RBC % Seg Neutrophils # Seg Neutrophils # Man Lymphocytes # (Manual) Monocytes # (Manual) Eosinophils # (Manual) Basophils # (Manual) PT INR APTT Heparin Anti-Xa Level POC ABG pH POC ABG pCO2 33.7 L POC ABG pO2 Sodium Potassium Chloride Carbon Dioxide BUN Creatinine Glucose POC Glucose 181 H 230 H Calcium Phosphorus Magnesium AST Alkaline Phosphatase C-Reactive Protein Total Protein Albumin Lipase Vitamin B12 TSH Urine WBC (Auto) Urine Chloride Urine Total Protein Vancomycin Trough Crossmatch 10/27/16 10/27/16 10/27/16 05:15 05:15 05:38 WBC 25.5 H RBC 3.07 L Hgb 9.4 L Hct 30.1 L MCV 98 H RDW 16.4 H Plt Count 527 H Lymph % (Auto) [place] % (Auto) [place] # Seg Neutrophils % Seg Neuts % (Manual) Lymphocytes % (Manual) Monocytes % (Manual) Basophils % (Manual) Nucleated RBC % Seg Neutrophils # Seg Neutrophils # Man Lymphocytes # (Manual) Monocytes # (Manual) Eosinophils # (Manual) Basophils # (Manual) PT INR APTT Heparin Anti-Xa Level POC ABG pH POC ABG pCO2 POC ABG pO2 Sodium Potassium Chloride Carbon Dioxide 19 L BUN 23 H Creatinine Glucose 160 H POC Glucose 168 H Calcium 8.0 L Phosphorus Magnesium AST Alkaline Phosphatase C-Reactive Protein Total Protein Albumin Lipase Vitamin B12 TSH Urine WBC (Auto) Urine Chloride Urine Total Protein Vancomycin Trough Crossmatch 10/27/16 10/27/16 10/27/16 11:59 18:35 23:48 WBC RBC Hgb Hct MCV RDW Plt Count Lymph % (Auto) [place] % (Auto) [place] # Seg Neutrophils % Seg Neuts % (Manual) Lymphocytes % (Manual) Monocytes % (Manual) Basophils % (Manual) Nucleated RBC % Seg Neutrophils # Seg Neutrophils # Man Lymphocytes # (Manual) Monocytes # (Manual) Eosinophils # (Manual) Basophils # (Manual) PT INR APTT Heparin Anti-Xa Level POC ABG pH POC ABG pCO2 POC ABG pO2 Sodium Potassium Chloride Carbon Dioxide BUN Creatinine Glucose POC Glucose 197 H 318 H 316 H Calcium Phosphorus Magnesium AST Alkaline Phosphatase C-Reactive Protein Total Protein Albumin Lipase Vitamin B12 TSH Urine WBC (Auto) Urine Chloride Urine Total Protein Vancomycin Trough Crossmatch 10/28/16 10/28/16 10/28/16 03:13 04:10 04:10 WBC 18.8 H RBC 2.64 L Hgb 8.1 L Hct 26.1 L MCV 99 H RDW 16.2 H Plt Count 544 H Lymph % (Auto) [place] % (Auto) [place] # Seg Neutrophils % Seg Neuts % (Manual) Lymphocytes % (Manual) Monocytes % (Manual) Basophils % (Manual) Nucleated RBC % Seg Neutrophils # Seg Neutrophils # Man Lymphocytes # (Manual) Monocytes # (Manual) Eosinophils # (Manual) Basophils # (Manual) PT INR APTT Heparin Anti-Xa Level POC ABG pH POC ABG pCO2 POC ABG pO2 Sodium Potassium Chloride Carbon Dioxide 21 L BUN 24 H Creatinine Glucose 302 H POC Glucose 304 H Calcium 7.7 L Phosphorus Magnesium AST Alkaline Phosphatase C-Reactive Protein Total Protein Albumin Lipase Vitamin B12 TSH Urine WBC (Auto) Urine Chloride Urine Total Protein Vancomycin Trough Crossmatch 10/28/16 10/28/16 10/28/16 04:10 12:36 18:27 WBC RBC Hgb Hct MCV RDW Plt Count Lymph % (Auto) [place] % (Auto) [place] # Seg Neutrophils % Seg Neuts % (Manual) Lymphocytes % (Manual) Monocytes % (Manual) Basophils % (Manual) Nucleated RBC % Seg Neutrophils # Seg Neutrophils # Man Lymphocytes # (Manual) Monocytes # (Manual) Eosinophils # (Manual) Basophils # (Manual) PT INR APTT Heparin Anti-Xa Level 0.20 L POC ABG pH POC ABG pCO2 POC ABG pO2 Sodium Potassium Chloride Carbon Dioxide BUN Creatinine Glucose POC Glucose 205 H 339 H Calcium Phosphorus Magnesium AST Alkaline Phosphatase C-Reactive Protein Total Protein Albumin Lipase Vitamin B12 TSH Urine WBC (Auto) Urine Chloride Urine Total Protein Vancomycin Trough Crossmatch 10/29/16 10/29/16 10/29/16 01:05 06:19 09:30 WBC 20.3 H RBC 2.80 L Hgb 8.5 L Hct 26.7 L MCV RDW 15.4 H Plt Count 571 H Lymph % (Auto) [place] % (Auto) [place] # Seg Neutrophils % Seg Neuts % (Manual) 75.0 H Lymphocytes % (Manual) 4.0 L Monocytes % (Manual) Basophils % (Manual) Nucleated RBC % Seg Neutrophils # Seg Neutrophils # Man 15.2 H Lymphocytes # (Manual) 0.8 L Monocytes # (Manual) Eosinophils # (Manual) Basophils # (Manual) PT INR APTT Heparin Anti-Xa Level POC ABG pH POC ABG pCO2 POC ABG pO2 Sodium Potassium Chloride Carbon Dioxide BUN Creatinine Glucose POC Glucose 275 H 179 H Calcium Phosphorus Magnesium AST Alkaline Phosphatase C-Reactive Protein Total Protein Albumin Lipase Vitamin B12 TSH Urine WBC (Auto) Urine Chloride Urine Total Protein Vancomycin Trough Crossmatch 10/29/16 10/29/16 10/29/16 11:46 15:18 17:55 WBC RBC Hgb Hct MCV RDW Plt Count Lymph % (Auto) [place] % (Auto) [place] # Seg Neutrophils % Seg Neuts % (Manual) Lymphocytes % (Manual) Monocytes % (Manual) Basophils % (Manual) Nucleated RBC % Seg Neutrophils # Seg Neutrophils # Man Lymphocytes # (Manual) Monocytes # (Manual) Eosinophils # (Manual) Basophils # (Manual) PT INR APTT Heparin Anti-Xa Level 1.15 H POC ABG pH POC ABG pCO2 POC ABG pO2 Sodium Potassium Chloride Carbon Dioxide BUN Creatinine Glucose POC Glucose 122 H 255 H Calcium Phosphorus Magnesium AST Alkaline Phosphatase C-Reactive Protein Total Protein Albumin Lipase Vitamin B12 TSH Urine WBC (Auto) Urine Chloride Urine Total Protein Vancomycin Trough Crossmatch 10/30/16 10/30/16 10/30/16 00:10 05:30 05:30 WBC 19.8 H RBC 2.51 L Hgb 7.7 L Hct 24.1 L MCV RDW 15.5 H Plt Count 534 H Lymph % (Auto) [place] % (Auto) [place] # Seg Neutrophils % Seg Neuts % (Manual) Lymphocytes % (Manual) Monocytes % (Manual) Basophils % (Manual) Nucleated RBC % Seg Neutrophils # Seg Neutrophils # Man Lymphocytes # (Manual) Monocytes # (Manual) Eosinophils # (Manual) Basophils # (Manual) PT INR APTT Heparin Anti-Xa Level POC ABG pH POC ABG pCO2 POC ABG pO2 Sodium Potassium Chloride Carbon Dioxide BUN Creatinine Glucose 211 H POC Glucose 202 H Calcium 7.4 L Phosphorus Magnesium AST Alkaline Phosphatase C-Reactive Protein Total Protein Albumin Lipase Vitamin B12 TSH Urine WBC (Auto) Urine Chloride Urine Total Protein Vancomycin Trough Crossmatch 10/30/16 10/30/16 10/30/16 06:32 12:51 17:47 WBC RBC Hgb Hct MCV RDW Plt Count Lymph % (Auto) [place] % (Auto) [place] # Seg Neutrophils % Seg Neuts % (Manual) Lymphocytes % (Manual) Monocytes % (Manual) Basophils % (Manual) Nucleated RBC % Seg Neutrophils # Seg Neutrophils # Man Lymphocytes # (Manual) Monocytes # (Manual) Eosinophils # (Manual) Basophils # (Manual) PT INR APTT Heparin Anti-Xa Level POC ABG pH POC ABG pCO2 POC ABG pO2 Sodium Potassium Chloride Carbon Dioxide BUN Creatinine Glucose POC Glucose 207 H 218 H 169 H Calcium Phosphorus Magnesium AST Alkaline Phosphatase C-Reactive Protein Total Protein Albumin Lipase Vitamin B12 TSH Urine WBC (Auto) Urine Chloride Urine Total Protein Vancomycin Trough Crossmatch 10/30/16 10/31/16 10/31/16 23:59 05:25 11:21 WBC RBC Hgb Hct MCV RDW Plt Count Lymph % (Auto) [place] % (Auto) [place] # Seg Neutrophils % Seg Neuts % (Manual) Lymphocytes % (Manual) Monocytes % (Manual) Basophils % (Manual) Nucleated RBC % Seg Neutrophils # Seg Neutrophils # Man Lymphocytes # (Manual) Monocytes # (Manual) Eosinophils # (Manual) Basophils # (Manual) PT INR APTT Heparin Anti-Xa Level POC ABG pH POC ABG pCO2 POC ABG pO2 Sodium Potassium Chloride Carbon Dioxide BUN Creatinine Glucose POC Glucose 138 H 127 H 132 H Calcium Phosphorus Magnesium AST Alkaline Phosphatase C-Reactive Protein Total Protein Albumin Lipase Vitamin B12 TSH Urine WBC (Auto) Urine Chloride Urine Total Protein Vancomycin Trough Crossmatch 10/31/16 10/31/16 11/01/16 17:07 23:54 05:47 WBC RBC Hgb Hct MCV RDW Plt Count Lymph % (Auto) [place] % (Auto) [place] # Seg Neutrophils % Seg Neuts % (Manual) Lymphocytes % (Manual) Monocytes % (Manual) Basophils % (Manual) Nucleated RBC % Seg Neutrophils # Seg Neutrophils # Man Lymphocytes # (Manual) Monocytes # (Manual) Eosinophils # (Manual) Basophils # (Manual) PT INR APTT Heparin Anti-Xa Level POC ABG pH POC ABG pCO2 POC ABG pO2 Sodium Potassium Chloride Carbon Dioxide BUN Creatinine Glucose POC Glucose 138 H 153 H 150 H Calcium Phosphorus Magnesium AST Alkaline Phosphatase C-Reactive Protein Total Protein Albumin Lipase Vitamin B12 TSH Urine WBC (Auto) Urine Chloride Urine Total Protein Vancomycin Trough Crossmatch 11/01/16 11/01/16 11/01/16 06:33 06:33 12:16 WBC 19.2 H RBC 2.51 L Hgb 7.9 L Hct 24.8 L MCV 99 H D RDW 16.1 H Plt Count 569 H Lymph % (Auto) [place] % (Auto) [place] # Seg Neutrophils % Seg Neuts % (Manual) Lymphocytes % (Manual) Monocytes % (Manual) Basophils % (Manual) Nucleated RBC % Seg Neutrophils # Seg Neutrophils # Man Lymphocytes # (Manual) Monocytes # (Manual) Eosinophils # (Manual) Basophils # (Manual) PT INR APTT Heparin Anti-Xa Level POC ABG pH POC ABG pCO2 POC ABG pO2 Sodium Potassium 3.5 L Chloride Carbon Dioxide 21 L BUN Creatinine Glucose 137 H POC Glucose 125 H Calcium 7.7 L Phosphorus Magnesium AST Alkaline Phosphatase 148 H C-Reactive Protein Total Protein 6.2 L Albumin 2.0 L Lipase Vitamin B12 TSH Urine WBC (Auto) Urine Chloride Urine Total Protein Vancomycin Trough Crossmatch 11/01/16 11/02/16 11/02/16 17:37 00:05 04:15 WBC RBC Hgb Hct MCV RDW Plt Count Lymph % (Auto) [place] % (Auto) [place] # Seg Neutrophils % Seg Neuts % (Manual) Lymphocytes % (Manual) Monocytes % (Manual) Basophils % (Manual) Nucleated RBC % Seg Neutrophils # Seg Neutrophils # Man Lymphocytes # (Manual) Monocytes # (Manual) Eosinophils # (Manual) Basophils # (Manual) PT INR APTT Heparin Anti-Xa Level < 0.10 L POC ABG pH POC ABG pCO2 POC ABG pO2 Sodium Potassium 3.2 L Chloride Carbon Dioxide BUN 6 L Creatinine Glucose 135 H POC Glucose 164 H Calcium 7.5 L Phosphorus Magnesium AST Alkaline Phosphatase 132 H C-Reactive Protein Total Protein 6.2 L Albumin 1.8 L Lipase Vitamin B12 TSH Urine WBC (Auto) Urine Chloride Urine Total Protein Vancomycin Trough Crossmatch 11/02/16 11/02/16 11/02/16 04:15 05:54 12:15 WBC 17.7 H RBC 2.43 L Hgb 7.6 L Hct 23.5 L MCV RDW 15.9 H Plt Count 502 H Lymph % (Auto) [place] % (Auto) [place] # Seg Neutrophils % Seg Neuts % (Manual) 84.0 H Lymphocytes % (Manual) 11.0 L Monocytes % (Manual) Basophils % (Manual) Nucleated RBC % 1.0 H Seg Neutrophils # Seg Neutrophils # Man 14.9 H Lymphocytes # (Manual) Monocytes # (Manual) Eosinophils # (Manual) Basophils # (Manual) PT INR APTT Heparin Anti-Xa Level POC ABG pH POC ABG pCO2 POC ABG pO2 Sodium Potassium Chloride Carbon Dioxide BUN Creatinine Glucose POC Glucose 152 H 137 H Calcium Phosphorus Magnesium AST Alkaline Phosphatase C-Reactive Protein Total Protein Albumin Lipase Vitamin B12 TSH Urine WBC (Auto) Urine Chloride Urine Total Protein Vancomycin Trough Crossmatch 11/02/16 11/03/16 11/03/16 17:00 00:05 00:05 WBC RBC Hgb Hct MCV RDW Plt Count Lymph % (Auto) [place] % (Auto) [place] # Seg Neutrophils % Seg Neuts % (Manual) Lymphocytes % (Manual) Monocytes % (Manual) Basophils % (Manual) Nucleated RBC % Seg Neutrophils # Seg Neutrophils # Man Lymphocytes # (Manual) Monocytes # (Manual) Eosinophils # (Manual) Basophils # (Manual) PT INR APTT Heparin Anti-Xa Level POC ABG pH POC ABG pCO2 POC ABG pO2 Sodium Potassium Chloride Carbon Dioxide 20 L BUN 5 L Creatinine Glucose 139 H POC Glucose 161 H Calcium 6.7 L Phosphorus Magnesium 1.2 L AST Alkaline Phosphatase C-Reactive Protein Total Protein Albumin Lipase Vitamin B12 TSH Urine WBC (Auto) Urine Chloride Urine Total Protein Vancomycin Trough Crossmatch 11/03/16 11/03/16 11/03/16 00:05 02:05 04:23 WBC 15.9 H 14.0 H RBC 1.93 L 2.38 L Hgb 5.9 L* 7.3 L Hct 18.9 L* 23.1 L MCV 98 H RDW 15.9 H 15.9 H Plt Count Lymph % (Auto) [place] % (Auto) [place] # Seg Neutrophils % Seg Neuts % (Manual) 85.0 H Lymphocytes % (Manual) 4.0 L Monocytes % (Manual) Basophils % (Manual) Nucleated RBC % Seg Neutrophils # Seg Neutrophils # Man 13.5 H Lymphocytes # (Manual) 0.6 L Monocytes # (Manual) Eosinophils # (Manual) Basophils # (Manual) PT INR APTT Heparin Anti-Xa Level POC ABG pH POC ABG pCO2 POC ABG pO2 Sodium Potassium Chloride Carbon Dioxide BUN 5 L Creatinine Glucose 127 H POC Glucose Calcium 7.2 L Phosphorus Magnesium AST Alkaline Phosphatase C-Reactive Protein Total Protein 5.8 L Albumin 1.5 L Lipase Vitamin B12 TSH Urine WBC (Auto) Urine Chloride Urine Total Protein Vancomycin Trough Crossmatch 11/03/16 11/03/16 11/03/16 09:14 09:27 11:54 WBC RBC Hgb Hct MCV RDW Plt Count Lymph % (Auto) [place] % (Auto) [place] # Seg Neutrophils % Seg Neuts % (Manual) Lymphocytes % (Manual) Monocytes % (Manual) Basophils % (Manual) Nucleated RBC % Seg Neutrophils # Seg Neutrophils # Man Lymphocytes # (Manual) Monocytes # (Manual) Eosinophils # (Manual) Basophils # (Manual) PT INR APTT Heparin Anti-Xa Level 0.11 L POC ABG pH POC ABG pCO2 POC ABG pO2 Sodium Potassium Chloride Carbon Dioxide BUN 5 L Creatinine Glucose 111 H POC Glucose 139 H Calcium 6.7 L Phosphorus Magnesium AST Alkaline Phosphatase C-Reactive Protein Total Protein Albumin Lipase Vitamin B12 TSH Urine WBC (Auto) Urine Chloride Urine Total Protein Vancomycin Trough Crossmatch 11/03/16 11/03/16 11/03/16 16:26 18:01 18:01 WBC RBC Hgb Hct MCV RDW Plt Count Lymph % (Auto) [place] % (Auto) [place] # Seg Neutrophils % Seg Neuts % (Manual) Lymphocytes % (Manual) Monocytes % (Manual) Basophils % (Manual) Nucleated RBC % Seg Neutrophils # Seg Neutrophils # Man Lymphocytes # (Manual) Monocytes # (Manual) Eosinophils # (Manual) Basophils # (Manual) PT INR APTT Heparin Anti-Xa Level 2.00 H POC ABG pH POC ABG pCO2 POC ABG pO2 Sodium Potassium Chloride Carbon Dioxide BUN Creatinine Glucose POC Glucose 142 H Calcium Phosphorus Magnesium AST Alkaline Phosphatase C-Reactive Protein Total Protein Albumin Lipase Vitamin B12 TSH Urine WBC (Auto) Urine Chloride Urine Total Protein Vancomycin Trough Crossmatch See Detail 11/04/16 11/04/16 11/04/16 02:15 02:15 06:35 WBC 11.8 H RBC 2.39 L Hgb 7.4 L Hct 23.1 L MCV RDW 15.9 H Plt Count Lymph % (Auto) [place] % (Auto) [place] # Seg Neutrophils % Seg Neuts % (Manual) 76.0 H Lymphocytes % (Manual) 12.0 L Monocytes % (Manual) 9.0 H Basophils % (Manual) Nucleated RBC % Seg Neutrophils # Seg Neutrophils # Man 9.0 H Lymphocytes # (Manual) Monocytes # (Manual) 1.1 H Eosinophils # (Manual) Basophils # (Manual) PT INR APTT Heparin Anti-Xa Level < 0.10 L POC ABG pH POC ABG pCO2 POC ABG pO2 Sodium Potassium Chloride Carbon Dioxide 21 L BUN 5 L Creatinine Glucose 112 H POC Glucose Calcium 6.8 L Phosphorus Magnesium AST Alkaline Phosphatase C-Reactive Protein Total Protein 5.7 L Albumin 1.7 L Lipase Vitamin B12 TSH Urine WBC (Auto) Urine Chloride Urine Total Protein Vancomycin Trough Crossmatch 11/04/16 11/04/16 11/04/16 10:51 12:58 15:04 WBC RBC Hgb Hct MCV RDW Plt Count Lymph % (Auto) [place] % (Auto) [place] # Seg Neutrophils % Seg Neuts % (Manual) Lymphocytes % (Manual) Monocytes % (Manual) Basophils % (Manual) Nucleated RBC % Seg Neutrophils # Seg Neutrophils # Man Lymphocytes # (Manual) Monocytes # (Manual) Eosinophils # (Manual) Basophils # (Manual) PT INR APTT Heparin Anti-Xa Level 1.05 H POC ABG pH POC ABG pCO2 33.7 L POC ABG pO2 60 L Sodium Potassium Chloride Carbon Dioxide BUN Creatinine Glucose POC Glucose 118 H Calcium Phosphorus Magnesium AST Alkaline Phosphatase C-Reactive Protein Total Protein Albumin Lipase Vitamin B12 TSH Urine WBC (Auto) Urine Chloride Urine Total Protein Vancomycin Trough Crossmatch 11/04/16 11/04/16 11/05/16 17:20 20:31 02:30 WBC RBC Hgb Hct MCV RDW Plt Count Lymph % (Auto) [place] % (Auto) [place] # Seg Neutrophils % Seg Neuts % (Manual) Lymphocytes % (Manual) Monocytes % (Manual) Basophils % (Manual) Nucleated RBC % Seg Neutrophils # Seg Neutrophils # Man Lymphocytes # (Manual) Monocytes # (Manual) Eosinophils # (Manual) Basophils # (Manual) PT INR APTT Heparin Anti-Xa Level POC ABG pH POC ABG pCO2 POC ABG pO2 Sodium Potassium 3.5 L Chloride Carbon Dioxide 18 L BUN 5 L Creatinine 0.6 L Glucose 110 H POC Glucose 228 H 169 H Calcium 7.1 L Phosphorus Magnesium AST Alkaline Phosphatase C-Reactive Protein Total Protein Albumin 1.9 L Lipase Vitamin B12 TSH Urine WBC (Auto) Urine Chloride Urine Total Protein Vancomycin Trough Crossmatch 11/05/16 11/05/16 11/05/16 02:30 17:52 21:07 WBC 14.1 H RBC Hgb Hct MCV RDW 16.7 H Plt Count Lymph % (Auto) [place] % (Auto) [place] # Seg Neutrophils % Seg Neuts % (Manual) 80.0 H Lymphocytes % (Manual) 6.0 L Monocytes % (Manual) 8.0 H Basophils % (Manual) Nucleated RBC % Seg Neutrophils # Seg Neutrophils # Man 11.3 H Lymphocytes # (Manual) 0.8 L Monocytes # (Manual) 1.1 H Eosinophils # (Manual) Basophils # (Manual) PT INR APTT Heparin Anti-Xa Level < 0.10 L POC ABG pH POC ABG pCO2 POC ABG pO2 Sodium Potassium Chloride Carbon Dioxide BUN Creatinine Glucose POC Glucose 174 H Calcium Phosphorus Magnesium AST Alkaline Phosphatase C-Reactive Protein Total Protein Albumin Lipase Vitamin B12 TSH Urine WBC (Auto) Urine Chloride Urine Total Protein Vancomycin Trough Crossmatch 11/05/16 11/06/16 11/06/16 23:30 05:00 05:00 WBC 15.2 H RBC 3.29 L Hgb 10.0 L Hct MCV RDW 16.9 H Plt Count Lymph % (Auto) [place] % (Auto) [place] # Seg Neutrophils % Seg Neuts % (Manual) Lymphocytes % (Manual) Monocytes % (Manual) Basophils % (Manual) Nucleated RBC % Seg Neutrophils # Seg Neutrophils # Man Lymphocytes # (Manual) Monocytes # (Manual) Eosinophils # (Manual) Basophils # (Manual) PT INR APTT Heparin Anti-Xa Level 0.94 H POC ABG pH POC ABG pCO2 POC ABG pO2 Sodium Potassium Chloride Carbon Dioxide BUN Creatinine Glucose POC Glucose 131 H Calcium Phosphorus Magnesium AST Alkaline Phosphatase C-Reactive Protein Total Protein Albumin Lipase Vitamin B12 TSH Urine WBC (Auto) Urine Chloride Urine Total Protein Vancomycin Trough Crossmatch 11/06/16 11/06/16 11/06/16 05:00 11:45 18:23 WBC RBC Hgb Hct MCV RDW Plt Count Lymph % (Auto) [place] % (Auto) [place] # Seg Neutrophils % Seg Neuts % (Manual) Lymphocytes % (Manual) Monocytes % (Manual) Basophils % (Manual) Nucleated RBC % Seg Neutrophils # Seg Neutrophils # Man Lymphocytes # (Manual) Monocytes # (Manual) Eosinophils # (Manual) Basophils # (Manual) PT INR APTT Heparin Anti-Xa Level POC ABG pH POC ABG pCO2 POC ABG pO2 Sodium Potassium 3.5 L Chloride 107.1 H Carbon Dioxide 20 L BUN 4 L Creatinine 0.6 L Glucose 104 H POC Glucose 141 H 255 H Calcium 6.7 L Phosphorus Magnesium AST Alkaline Phosphatase C-Reactive Protein Total Protein Albumin Lipase Vitamin B12 TSH Urine WBC (Auto) Urine Chloride Urine Total Protein Vancomycin Trough Crossmatch 11/06/16 11/06/16 11/07/16 22:07 23:07 11:41 WBC RBC Hgb Hct MCV RDW Plt Count Lymph % (Auto) [place] % (Auto) [place] # Seg Neutrophils % Seg Neuts % (Manual) Lymphocytes % (Manual) Monocytes % (Manual) Basophils % (Manual) Nucleated RBC % Seg Neutrophils # Seg Neutrophils # Man Lymphocytes # (Manual) Monocytes # (Manual) Eosinophils # (Manual) Basophils # (Manual) PT INR APTT Heparin Anti-Xa Level 0.80 H POC ABG pH POC ABG pCO2 POC ABG pO2 Sodium Potassium Chloride Carbon Dioxide BUN Creatinine Glucose POC Glucose 183 H 132 H Calcium Phosphorus Magnesium AST Alkaline Phosphatase C-Reactive Protein Total Protein Albumin Lipase Vitamin B12 TSH Urine WBC (Auto) Urine Chloride Urine Total Protein Vancomycin Trough Crossmatch 11/07/16 11/07/16 11/07/16 12:17 17:05 17:58 WBC RBC Hgb Hct MCV RDW Plt Count Lymph % (Auto) [place] % (Auto) [place] # Seg Neutrophils % Seg Neuts % (Manual) Lymphocytes % (Manual) Monocytes % (Manual) Basophils % (Manual) Nucleated RBC % Seg Neutrophils # Seg Neutrophils # Man Lymphocytes # (Manual) Monocytes # (Manual) Eosinophils # (Manual) Basophils # (Manual) PT INR APTT Heparin Anti-Xa Level 0.87 H POC ABG pH 7.324 L POC ABG pCO2 POC ABG pO2 Sodium Potassium Chloride Carbon Dioxide BUN Creatinine Glucose POC Glucose 158 H Calcium Phosphorus Magnesium AST Alkaline Phosphatase C-Reactive Protein Total Protein Albumin Lipase Vitamin B12 TSH Urine WBC (Auto) Urine Chloride Urine Total Protein Vancomycin Trough Crossmatch 11/07/16 11/07/16 11/07/16 23:26 Unknown Unknown WBC 12.3 H RBC 2.96 L Hgb 9.1 L Hct 27.9 L MCV RDW 16.8 H Plt Count Lymph % (Auto) [place] % (Auto) [place] # Seg Neutrophils % Seg Neuts % (Manual) 80.0 H Lymphocytes % (Manual) 7.0 L Monocytes % (Manual) Basophils % (Manual) Nucleated RBC % Seg Neutrophils # Seg Neutrophils # Man 9.8 H Lymphocytes # (Manual) 0.9 L Monocytes # (Manual) Eosinophils # (Manual) Basophils # (Manual) PT INR APTT Heparin Anti-Xa Level POC ABG pH POC ABG pCO2 POC ABG pO2 Sodium Potassium Chloride Carbon Dioxide 19 L BUN Creatinine Glucose 106 H POC Glucose 130 H Calcium 6.9 L Phosphorus Magnesium AST Alkaline Phosphatase C-Reactive Protein Total Protein Albumin Lipase Vitamin B12 TSH Urine WBC (Auto) Urine Chloride Urine Total Protein Vancomycin Trough Crossmatch 11/07/16 11/08/16 11/08/16 Unknown 05:14 05:20 WBC 12.4 H RBC 3.04 L Hgb 9.2 L Hct 28.8 L MCV RDW 16.6 H Plt Count Lymph % (Auto) [place] % (Auto) [place] # Seg Neutrophils % Seg Neuts % (Manual) 77.0 H Lymphocytes % (Manual) 5.0 L Monocytes % (Manual) Basophils % (Manual) 2.0 H Nucleated RBC % Seg Neutrophils # Seg Neutrophils # Man 9.5 H Lymphocytes # (Manual) 0.6 L Monocytes # (Manual) Eosinophils # (Manual) Basophils # (Manual) 0.2 H PT INR APTT Heparin Anti-Xa Level 0.90 H POC ABG pH POC ABG pCO2 POC ABG pO2 Sodium Potassium Chloride Carbon Dioxide BUN Creatinine Glucose POC Glucose 204 H Calcium Phosphorus Magnesium AST Alkaline Phosphatase C-Reactive Protein Total Protein Albumin Lipase Vitamin B12 TSH Urine WBC (Auto) Urine Chloride Urine Total Protein Vancomycin Trough Crossmatch 11/08/16 11/08/16 11/08/16 05:20 12:10 13:10 WBC RBC Hgb Hct MCV RDW Plt Count Lymph % (Auto) [place] % (Auto) [place] # Seg Neutrophils % Seg Neuts % (Manual) Lymphocytes % (Manual) Monocytes % (Manual) Basophils % (Manual) Nucleated RBC % Seg Neutrophils # Seg Neutrophils # Man Lymphocytes # (Manual) Monocytes # (Manual) Eosinophils # (Manual) Basophils # (Manual) PT INR APTT Heparin Anti-Xa Level POC ABG pH POC ABG pCO2 33.7 L POC ABG pO2 Sodium 136 L Potassium Chloride Carbon Dioxide 19 L BUN Creatinine Glucose 192 H POC Glucose 180 H Calcium 7.1 L Phosphorus Magnesium AST Alkaline Phosphatase C-Reactive Protein Total Protein Albumin Lipase Vitamin B12 TSH Urine WBC (Auto) Urine Chloride Urine Total Protein Vancomycin Trough Crossmatch 11/08/16 11/08/16 11/08/16 17:26 20:45 23:34 WBC RBC Hgb Hct MCV RDW Plt Count Lymph % (Auto) [place] % (Auto) [place] # Seg Neutrophils % Seg Neuts % (Manual) Lymphocytes % (Manual) Monocytes % (Manual) Basophils % (Manual) Nucleated RBC % Seg Neutrophils # Seg Neutrophils # Man Lymphocytes # (Manual) Monocytes # (Manual) Eosinophils # (Manual) Basophils # (Manual) PT INR APTT Heparin Anti-Xa Level POC ABG pH POC ABG pCO2 POC ABG pO2 Sodium Potassium Chloride Carbon Dioxide BUN Creatinine Glucose POC Glucose 187 H 178 H Calcium Phosphorus Magnesium AST Alkaline Phosphatase C-Reactive Protein Total Protein Albumin Lipase Vitamin B12 TSH Urine WBC (Auto) Urine Chloride Urine Total Protein Vancomycin Trough 35.4 H Crossmatch 11/09/16 11/09/16 11/09/16 05:30 05:30 05:59 WBC 11.5 H RBC 2.96 L Hgb 9.2 L Hct 28.2 L MCV RDW 16.4 H Plt Count Lymph % (Auto) [place] % (Auto) [place] # Seg Neutrophils % Seg Neuts % (Manual) 76.0 H Lymphocytes % (Manual) 2.0 L Monocytes % (Manual) Basophils % (Manual) Nucleated RBC % Seg Neutrophils # Seg Neutrophils # Man 8.7 H Lymphocytes # (Manual) 0.2 L Monocytes # (Manual) Eosinophils # (Manual) Basophils # (Manual) PT INR APTT Heparin Anti-Xa Level POC ABG pH POC ABG pCO2 POC ABG pO2 Sodium Potassium 3.4 L Chloride 107.6 H Carbon Dioxide 19 L BUN Creatinine 0.6 L Glucose 207 H POC Glucose 263 H Calcium 7.3 L Phosphorus Magnesium AST Alkaline Phosphatase C-Reactive Protein Total Protein Albumin Lipase Vitamin B12 TSH Urine WBC (Auto) Urine Chloride Urine Total Protein Vancomycin Trough Crossmatch 11/09/16 11/09/16 11/09/16 11:49 15:24 18:04 WBC RBC Hgb Hct MCV RDW Plt Count Lymph % (Auto) [place] % (Auto) [place] # Seg Neutrophils % Seg Neuts % (Manual) Lymphocytes % (Manual) Monocytes % (Manual) Basophils % (Manual) Nucleated RBC % Seg Neutrophils # Seg Neutrophils # Man Lymphocytes # (Manual) Monocytes # (Manual) Eosinophils # (Manual) Basophils # (Manual) PT INR APTT Heparin Anti-Xa Level POC ABG pH POC ABG pCO2 33.8 L POC ABG pO2 131 H Sodium Potassium Chloride Carbon Dioxide BUN Creatinine Glucose POC Glucose 269 H 242 H Calcium Phosphorus Magnesium AST Alkaline Phosphatase C-Reactive Protein Total Protein Albumin Lipase Vitamin B12 TSH Urine WBC (Auto) Urine Chloride Urine Total Protein Vancomycin Trough Crossmatch 11/09/16 11/10/16 11/10/16 22:57 04:30 04:30 WBC 15.7 H RBC 3.17 L Hgb 9.7 L Hct 30.2 L MCV RDW 16.2 H Plt Count Lymph % (Auto) [place] % (Auto) [place] # Seg Neutrophils % Seg Neuts % (Manual) Lymphocytes % (Manual) Monocytes % (Manual) Basophils % (Manual) Nucleated RBC % Seg Neutrophils # Seg Neutrophils # Man 8.5 H Lymphocytes # (Manual) Monocytes # (Manual) Eosinophils # (Manual) 0.5 H Basophils # (Manual) PT INR APTT Heparin Anti-Xa Level POC ABG pH POC ABG pCO2 POC ABG pO2 Sodium Potassium Chloride Carbon Dioxide 19 L BUN Creatinine 0.6 L Glucose 199 H POC Glucose 239 H Calcium 7.8 L Phosphorus Magnesium AST Alkaline Phosphatase C-Reactive Protein Total Protein Albumin Lipase Vitamin B12 TSH Urine WBC (Auto) Urine Chloride Urine Total Protein Vancomycin Trough Crossmatch 11/10/16 11/10/16 11/10/16 04:30 11:32 16:00 WBC RBC Hgb Hct MCV RDW Plt Count Lymph % (Auto) [place] % (Auto) [place] # Seg Neutrophils % Seg Neuts % (Manual) Lymphocytes % (Manual) Monocytes % (Manual) Basophils % (Manual) Nucleated RBC % Seg Neutrophils # Seg Neutrophils # Man Lymphocytes # (Manual) Monocytes # (Manual) Eosinophils # (Manual) Basophils # (Manual) PT INR APTT Heparin Anti-Xa Level 1.09 H < 0.10 L POC ABG pH POC ABG pCO2 POC ABG pO2 Sodium Potassium Chloride Carbon Dioxide BUN Creatinine Glucose POC Glucose 211 H Calcium Phosphorus Magnesium AST Alkaline Phosphatase C-Reactive Protein Total Protein Albumin Lipase Vitamin B12 TSH Urine WBC (Auto) Urine Chloride Urine Total Protein Vancomycin Trough Crossmatch 11/10/16 11/10/16 11/10/16 17:39 18:00 23:06 WBC RBC Hgb Hct MCV RDW Plt Count Lymph % (Auto) [place] % (Auto) [place] # Seg Neutrophils % Seg Neuts % (Manual) Lymphocytes % (Manual) Monocytes % (Manual) Basophils % (Manual) Nucleated RBC % Seg Neutrophils # Seg Neutrophils # Man Lymphocytes # (Manual) Monocytes # (Manual) Eosinophils # (Manual) Basophils # (Manual) PT INR APTT Heparin Anti-Xa Level 0.85 H POC ABG pH POC ABG pCO2 POC ABG pO2 Sodium Potassium Chloride Carbon Dioxide BUN Creatinine Glucose POC Glucose 249 H 220 H Calcium Phosphorus Magnesium AST Alkaline Phosphatase C-Reactive Protein Total Protein Albumin Lipase Vitamin B12 TSH Urine WBC (Auto) Urine Chloride Urine Total Protein Vancomycin Trough Crossmatch 11/11/16 11/11/16 11/11/16 05:56 06:15 06:15 WBC 13.3 H RBC 2.87 L Hgb 8.7 L Hct 27.2 L MCV RDW 16.4 H Plt Count Lymph % (Auto) [place] % (Auto) [place] # 0.9 H Seg Neutrophils % 78.9 H Seg Neuts % (Manual) Lymphocytes % (Manual) Monocytes % (Manual) Basophils % (Manual) Nucleated RBC % Seg Neutrophils # 10.5 H Seg Neutrophils # Man Lymphocytes # (Manual) Monocytes # (Manual) Eosinophils # (Manual) Basophils # (Manual) PT INR APTT Heparin Anti-Xa Level POC ABG pH POC ABG pCO2 POC ABG pO2 Sodium Potassium 3.2 L Chloride Carbon Dioxide 19 L BUN Creatinine Glucose POC Glucose 117 H Calcium 7.6 L Phosphorus Magnesium AST Alkaline Phosphatase C-Reactive Protein Total Protein Albumin Lipase Vitamin B12 TSH Urine WBC (Auto) Urine Chloride Urine Total Protein Vancomycin Trough Crossmatch 11/11/16 11/11/16 11/11/16 12:26 16:58 17:33 WBC RBC Hgb Hct MCV RDW Plt Count Lymph % (Auto) [place] % (Auto) [place] # Seg Neutrophils % Seg Neuts % (Manual) Lymphocytes % (Manual) Monocytes % (Manual) Basophils % (Manual) Nucleated RBC % Seg Neutrophils # Seg Neutrophils # Man Lymphocytes # (Manual) Monocytes # (Manual) Eosinophils # (Manual) Basophils # (Manual) PT INR APTT Heparin Anti-Xa Level < 0.10 L POC ABG pH POC ABG pCO2 POC ABG pO2 Sodium Potassium Chloride Carbon Dioxide BUN Creatinine Glucose POC Glucose 114 H 161 H Calcium Phosphorus Magnesium AST Alkaline Phosphatase C-Reactive Protein Total Protein Albumin Lipase Vitamin B12 TSH Urine WBC (Auto) Urine Chloride Urine Total Protein Vancomycin Trough Crossmatch 11/12/16 11/12/16 11/12/16 05:00 05:00 05:00 WBC 12.8 H RBC 2.75 L Hgb 8.4 L Hct 25.7 L MCV RDW 16.3 H Plt Count Lymph % (Auto) [place] % (Auto) 7.5 H [place] # 1.0 H Seg Neutrophils % 78.0 H Seg Neuts % (Manual) Lymphocytes % (Manual) Monocytes % (Manual) Basophils % (Manual) Nucleated RBC % Seg Neutrophils # 10.0 H Seg Neutrophils # Man Lymphocytes # (Manual) Monocytes # (Manual) Eosinophils # (Manual) Basophils # (Manual) PT INR APTT Heparin Anti-Xa Level 0.87 H POC ABG pH POC ABG pCO2 POC ABG pO2 Sodium Potassium 3.4 L Chloride Carbon Dioxide 19 L BUN Creatinine Glucose 112 H POC Glucose Calcium 7.7 L Phosphorus Magnesium AST Alkaline Phosphatase C-Reactive Protein Total Protein Albumin Lipase Vitamin B12 TSH Urine WBC (Auto) Urine Chloride Urine Total Protein Vancomycin Trough Crossmatch 11/12/16 11/12/16 11/13/16 11:18 16:40 00:44 WBC RBC Hgb Hct MCV RDW Plt Count Lymph % (Auto) [place] % (Auto) [place] # Seg Neutrophils % Seg Neuts % (Manual) Lymphocytes % (Manual) Monocytes % (Manual) Basophils % (Manual) Nucleated RBC % Seg Neutrophils # Seg Neutrophils # Man Lymphocytes # (Manual) Monocytes # (Manual) Eosinophils # (Manual) Basophils # (Manual) PT INR APTT Heparin Anti-Xa Level POC ABG pH POC ABG pCO2 POC ABG pO2 Sodium Potassium Chloride Carbon Dioxide BUN Creatinine Glucose POC Glucose 135 H 139 H 169 H Calcium Phosphorus Magnesium AST Alkaline Phosphatase C-Reactive Protein Total Protein Albumin Lipase Vitamin B12 TSH Urine WBC (Auto) Urine Chloride Urine Total Protein Vancomycin Trough Crossmatch 11/13/16 11/13/16 11/13/16 05:28 05:28 06:02 WBC 12.7 H RBC 2.93 L Hgb 9.0 L Hct 27.6 L MCV RDW 16.1 H Plt Count Lymph % (Auto) [place] % (Auto) [place] # Seg Neutrophils % 78.6 H Seg Neuts % (Manual) Lymphocytes % (Manual) Monocytes % (Manual) Basophils % (Manual) Nucleated RBC % Seg Neutrophils # 10.0 H Seg Neutrophils # Man Lymphocytes # (Manual) Monocytes # (Manual) Eosinophils # (Manual) Basophils # (Manual) PT INR APTT Heparin Anti-Xa Level POC ABG pH POC ABG pCO2 POC ABG pO2 Sodium Potassium Chloride Carbon Dioxide 17 L BUN Creatinine Glucose 116 H POC Glucose 112 H Calcium 7.8 L Phosphorus Magnesium AST Alkaline Phosphatase C-Reactive Protein Total Protein Albumin Lipase Vitamin B12 TSH Urine WBC (Auto) Urine Chloride Urine Total Protein Vancomycin Trough Crossmatch 11/13/16 11/13/16 11/13/16 12:34 16:55 17:00 WBC RBC Hgb Hct MCV RDW Plt Count Lymph % (Auto) [place] % (Auto) [place] # Seg Neutrophils % Seg Neuts % (Manual) Lymphocytes % (Manual) Monocytes % (Manual) Basophils % (Manual) Nucleated RBC % Seg Neutrophils # Seg Neutrophils # Man Lymphocytes # (Manual) Monocytes # (Manual) Eosinophils # (Manual) Basophils # (Manual) PT INR APTT Heparin Anti-Xa Level POC ABG pH POC ABG pCO2 22.9 L POC ABG pO2 53 L Sodium Potassium Chloride Carbon Dioxide BUN Creatinine Glucose POC Glucose 109 H 122 H Calcium Phosphorus Magnesium AST Alkaline Phosphatase C-Reactive Protein Total Protein Albumin Lipase Vitamin B12 TSH Urine WBC (Auto) Urine Chloride Urine Total Protein Vancomycin Trough Crossmatch 11/13/16 11/14/16 11/14/16 23:33 04:42 04:42 WBC 11.7 H RBC 3.01 L Hgb 9.3 L Hct 28.9 L MCV RDW 16.5 H Plt Count Lymph % (Auto) [place] % (Auto) [place] # Seg Neutrophils % Seg Neuts % (Manual) 79.0 H Lymphocytes % (Manual) 10.0 L Monocytes % (Manual) Basophils % (Manual) Nucleated RBC % Seg Neutrophils # Seg Neutrophils # Man 9.2 H Lymphocytes # (Manual) Monocytes # (Manual) Eosinophils # (Manual) Basophils # (Manual) PT INR APTT Heparin Anti-Xa Level POC ABG pH POC ABG pCO2 POC ABG pO2 Sodium Potassium Chloride Carbon Dioxide 16 L BUN Creatinine Glucose 102 H POC Glucose 173 H Calcium 7.5 L Phosphorus Magnesium AST Alkaline Phosphatase C-Reactive Protein Total Protein Albumin Lipase Vitamin B12 TSH Urine WBC (Auto) Urine Chloride Urine Total Protein Vancomycin Trough Crossmatch 11/14/16 11/14/16 11/14/16 11:43 16:57 19:45 WBC RBC Hgb Hct MCV RDW Plt Count Lymph % (Auto) [place] % (Auto) [place] # Seg Neutrophils % Seg Neuts % (Manual) Lymphocytes % (Manual) Monocytes % (Manual) Basophils % (Manual) Nucleated RBC % Seg Neutrophils # Seg Neutrophils # Man Lymphocytes # (Manual) Monocytes # (Manual) Eosinophils # (Manual) Basophils # (Manual) PT INR APTT Heparin Anti-Xa Level 0.71 H POC ABG pH POC ABG pCO2 POC ABG pO2 Sodium Potassium Chloride Carbon Dioxide BUN Creatinine Glucose POC Glucose 130 H 209 H Calcium Phosphorus Magnesium AST Alkaline Phosphatase C-Reactive Protein Total Protein Albumin Lipase Vitamin B12 TSH Urine WBC (Auto) Urine Chloride Urine Total Protein Vancomycin Trough Crossmatch 11/14/16 11/15/16 11/16/16 23:43 23:47 06:11 WBC RBC Hgb Hct MCV RDW Plt Count Lymph % (Auto) [place] % (Auto) [place] # Seg Neutrophils % Seg Neuts % (Manual) Lymphocytes % (Manual) Monocytes % (Manual) Basophils % (Manual) Nucleated RBC % Seg Neutrophils # Seg Neutrophils # Man Lymphocytes # (Manual) Monocytes # (Manual) Eosinophils # (Manual) Basophils # (Manual) PT INR APTT Heparin Anti-Xa Level POC ABG pH POC ABG pCO2 POC ABG pO2 Sodium Potassium Chloride Carbon Dioxide BUN Creatinine Glucose POC Glucose 167 H 114 H 125 H Calcium Phosphorus Magnesium AST Alkaline Phosphatase C-Reactive Protein Total Protein Albumin Lipase Vitamin B12 TSH Urine WBC (Auto) Urine Chloride Urine Total Protein Vancomycin Trough Crossmatch 11/16/16 11/16/16 11/16/16 09:05 09:05 09:05 WBC RBC 2.53 L Hgb 8.0 L Hct 23.7 L MCV RDW 15.9 H Plt Count Lymph % (Auto) [place] % (Auto) [place] # Seg Neutrophils % Seg Neuts % (Manual) Lymphocytes % (Manual) Monocytes % (Manual) Basophils % (Manual) Nucleated RBC % Seg Neutrophils # Seg Neutrophils # Man Lymphocytes # (Manual) Monocytes # (Manual) Eosinophils # (Manual) Basophils # (Manual) PT INR APTT Heparin Anti-Xa Level POC ABG pH POC ABG pCO2 POC ABG pO2 Sodium Potassium 2.5 L* D Chloride Carbon Dioxide 19 L BUN 5 L Creatinine Glucose 103 H POC Glucose Calcium 6.6 L Phosphorus Magnesium 1.3 L AST Alkaline Phosphatase C-Reactive Protein Total Protein Albumin Lipase Vitamin B12 TSH Urine WBC (Auto) Urine Chloride Urine Total Protein Vancomycin Trough Crossmatch 11/16/16 11/16/16 11/16/16 12:15 13:00 14:45 WBC RBC Hgb Hct MCV RDW Plt Count Lymph % (Auto) [place] % (Auto) [place] # Seg Neutrophils % Seg Neuts % (Manual) Lymphocytes % (Manual) Monocytes % (Manual) Basophils % (Manual) Nucleated RBC % Seg Neutrophils # Seg Neutrophils # Man Lymphocytes # (Manual) Monocytes # (Manual) Eosinophils # (Manual) Basophils # (Manual) PT 19.1 H INR 1.61 H APTT Heparin Anti-Xa Level POC ABG pH 7.479 H POC ABG pCO2 23.6 L POC ABG pO2 Sodium Potassium Chloride Carbon Dioxide BUN Creatinine Glucose POC Glucose 129 H Calcium Phosphorus Magnesium AST Alkaline Phosphatase C-Reactive Protein Total Protein Albumin Lipase Vitamin B12 TSH Urine WBC (Auto) Urine Chloride Urine Total Protein Vancomycin Trough Crossmatch 11/16/16 11/17/16 11/17/16 17:43 00:30 04:32 WBC RBC Hgb Hct MCV RDW Plt Count Lymph % (Auto) [place] % (Auto) [place] # Seg Neutrophils % Seg Neuts % (Manual) Lymphocytes % (Manual) Monocytes % (Manual) Basophils % (Manual) Nucleated RBC % Seg Neutrophils # Seg Neutrophils # Man Lymphocytes # (Manual) Monocytes # (Manual) Eosinophils # (Manual) Basophils # (Manual) PT INR APTT Heparin Anti-Xa Level POC ABG pH POC ABG pCO2 POC ABG pO2 Sodium Potassium Chloride Carbon Dioxide 18 L BUN Creatinine Glucose 127 H POC Glucose 224 H 259 H Calcium 7.5 L Phosphorus Magnesium AST Alkaline Phosphatase C-Reactive Protein Total Protein Albumin Lipase Vitamin B12 TSH Urine WBC (Auto) Urine Chloride Urine Total Protein Vancomycin Trough Crossmatch 11/17/16 11/17/16 11/17/16 05:42 08:34 12:19 WBC RBC 2.85 L Hgb 8.9 L Hct 26.5 L MCV RDW 16.2 H Plt Count Lymph % (Auto) [place] % (Auto) [place] # Seg Neutrophils % Seg Neuts % (Manual) Lymphocytes % (Manual) Monocytes % (Manual) Basophils % (Manual) Nucleated RBC % Seg Neutrophils # Seg Neutrophils # Man Lymphocytes # (Manual) Monocytes # (Manual) Eosinophils # (Manual) Basophils # (Manual) PT INR APTT Heparin Anti-Xa Level POC ABG pH POC ABG pCO2 POC ABG pO2 Sodium Potassium Chloride Carbon Dioxide BUN Creatinine Glucose POC Glucose 118 H 264 H Calcium Phosphorus Magnesium AST Alkaline Phosphatase C-Reactive Protein Total Protein Albumin Lipase Vitamin B12 TSH Urine WBC (Auto) Urine Chloride Urine Total Protein Vancomycin Trough Crossmatch 11/17/16 11/17/16 11/18/16 16:52 23:44 04:53 WBC RBC Hgb Hct MCV RDW Plt Count Lymph % (Auto) [place] % (Auto) [place] # Seg Neutrophils % Seg Neuts % (Manual) Lymphocytes % (Manual) Monocytes % (Manual) Basophils % (Manual) Nucleated RBC % Seg Neutrophils # Seg Neutrophils # Man Lymphocytes # (Manual) Monocytes # (Manual) Eosinophils # (Manual) Basophils # (Manual) PT INR APTT Heparin Anti-Xa Level POC ABG pH POC ABG pCO2 POC ABG pO2 Sodium Potassium Chloride Carbon Dioxide BUN Creatinine Glucose POC Glucose 256 H 109 H 287 H Calcium Phosphorus Magnesium AST Alkaline Phosphatase C-Reactive Protein Total Protein Albumin Lipase Vitamin B12 TSH Urine WBC (Auto) Urine Chloride Urine Total Protein Vancomycin Trough Crossmatch 11/18/16 11/18/16 11/18/16 05:31 05:45 05:45 WBC RBC Hgb Hct MCV RDW Plt Count Lymph % (Auto) [place] % (Auto) [place] # Seg Neutrophils % Seg Neuts % (Manual) Lymphocytes % (Manual) Monocytes % (Manual) Basophils % (Manual) Nucleated RBC % Seg Neutrophils # Seg Neutrophils # Man Lymphocytes # (Manual) Monocytes # (Manual) Eosinophils # (Manual) Basophils # (Manual) PT 20.1 H INR 1.72 H APTT 131.1 H* Heparin Anti-Xa Level 0.18 L POC ABG pH 7.252 L POC ABG pCO2 32.0 L POC ABG pO2 Sodium Potassium Chloride 107.1 H Carbon Dioxide 17 L BUN Creatinine Glucose 284 H POC Glucose Calcium 7.2 L Phosphorus Magnesium AST Alkaline Phosphatase C-Reactive Protein Total Protein 5.5 L Albumin 2.1 L Lipase Vitamin B12 TSH Urine WBC (Auto) Urine Chloride Urine Total Protein Vancomycin Trough Crossmatch 11/18/16 11/18/16 11/18/16 05:45 09:17 12:06 WBC 13.3 H RBC 3.07 L Hgb 9.2 L Hct 29.5 L MCV RDW 16.9 H Plt Count Lymph % (Auto) 11.0 L [place] % (Auto) [place] # Seg Neutrophils % 82.9 H Seg Neuts % (Manual) Lymphocytes % (Manual) Monocytes % (Manual) Basophils % (Manual) Nucleated RBC % Seg Neutrophils # 11.0 H Seg Neutrophils # Man Lymphocytes # (Manual) Monocytes # (Manual) Eosinophils # (Manual) Basophils # (Manual) PT INR APTT Heparin Anti-Xa Level POC ABG pH POC ABG pCO2 24.3 L POC ABG pO2 79 L Sodium Potassium Chloride Carbon Dioxide BUN Creatinine Glucose POC Glucose 433 H Calcium Phosphorus Magnesium AST Alkaline Phosphatase C-Reactive Protein Total Protein Albumin Lipase Vitamin B12 TSH Urine WBC (Auto) Urine Chloride Urine Total Protein Vancomycin Trough Crossmatch 11/18/16 12:09 WBC RBC Hgb Hct MCV RDW Plt Count Lymph % (Auto) [place] % (Auto) [place] # Seg Neutrophils % Seg Neuts % (Manual) Lymphocytes % (Manual) Monocytes % (Manual) Basophils % (Manual) Nucleated RBC % Seg Neutrophils # Seg Neutrophils # Man Lymphocytes # (Manual) Monocytes # (Manual) Eosinophils # (Manual) Basophils # (Manual) PT INR APTT Heparin Anti-Xa Level POC ABG pH POC ABG pCO2 POC ABG pO2 Sodium Potassium Chloride Carbon Dioxide BUN Creatinine Glucose POC Glucose 429 H Calcium Phosphorus Magnesium AST Alkaline Phosphatase C-Reactive Protein Total Protein Albumin Lipase Vitamin B12 TSH Urine WBC (Auto) Urine Chloride Urine Total Protein Vancomycin Trough Crossmatch Chest x-ray: report reviewed (Pulmonary edema, trach tube and central lines in place.), image reviewed Allied health notes reviewed: RT
[2016-11-18 13:38] LABS: Hematocrit 26.6 % (30.3-42.9); Hemoglobin 8.6 gm/dl (10.1-14.3); Mean Corpuscular HGB Conc 32 % (30-34); Mean Corpuscular Hemoglobin 31 pg (28-32); Mean Corpuscular Volume 95 fl (79-97); Platelet Count 417 K/mm3 (140-440); Red Blood Count 2.79 M/mm3 (3.65-5.03); White Blood Count 12.6 K/mm3 (4.5-11.0)
--- NOTE | 2016-11-18 13:56 | Progress Note ---
Assessment and Plan Coded last night. The right below knee amputation had a poor prognosis. Heparin was discontinued due to ACLS/chest compressions given the risks (bleeding given ACLS and recent code with status epilepticus) outweighing the benefits of heparin (to attempt to perserve right BKA). Will continue to evaluate right BKA. Will probably require conversion to right AKA once stable. Will continue to follow. Subjective Date of service: 11/18/16 Principal diagnosis: respiratory failure on mechanical ventilatory support, DKA Interval history: Coded last night requiring ACLS and chest compressions. Given the overall poor prognosis of the right BKA, I felt the risks of continuing heparin given chest compressions and ACLS outweigh the benefits of continuing heparin. In status epilepticus. Nurses discussed with hospitalist. Objective - Constitutional Vitals: Vital Signs - 12hr 11/18/16 11/18/16 11/18/16 02:00 02:30 02:46 Temperature Pulse Rate 132 H 136 H Respiratory 30 H 35 H 20 Rate Blood Pressure 162/94 169/108 O2 Sat by Pulse 100 99 100 Oximetry 11/18/16 11/18/16 11/18/16 03:00 03:30 04:00 Temperature 100.1 F H Pulse Rate 131 H 134 H Respiratory 26 H 28 H Rate Blood Pressure 160/97 172/98 O2 Sat by Pulse 100 99 Oximetry 11/18/16 11/18/16 11/18/16 04:01 04:31 04:42 Temperature Pulse Rate 127 H 53 L Respiratory 30 H 15 Rate Blood Pressure 126/69 50/30 O2 Sat by Pulse 99 95 95 Oximetry 11/18/16 11/18/16 11/18/16 04:55 05:01 05:30 Temperature Pulse Rate 154 H 159 H 120 H Respiratory 11 L 22 Rate Blood Pressure 106/61 96/54 101/37 O2 Sat by Pulse 94 99 91 Oximetry 11/18/16 11/18/16 11/18/16 06:00 06:30 06:38 Temperature Pulse Rate 111 H 108 H 107 H Respiratory 29 H 25 H Rate Blood Pressure 96/45 113/55 113/55 O2 Sat by Pulse 95 95 Oximetry 11/18/16 11/18/16 11/18/16 07:00 07:30 08:00 Temperature 98.8 F Pulse Rate 107 H 106 H 108 H Respiratory 27 H 26 H 29 H Rate Blood Pressure 110/56 116/62 121/62 O2 Sat by Pulse 97 95 95 Oximetry 11/18/16 11/18/16 11/18/16 08:30 08:36 09:00 Temperature Pulse Rate 108 H 108 H Respiratory 30 H 31 H Rate Blood Pressure 127/68 127/68 125/67 O2 Sat by Pulse 97 108 H 97 Oximetry 11/18/16 11/18/16 11/18/16 09:30 10:00 10:30 Temperature Pulse Rate 109 H 108 H 82 Respiratory 15 26 H 10 L Rate Blood Pressure 123/57 126/63 78/44 O2 Sat by Pulse 99 100 98 Oximetry 11/18/16 11/18/16 11/18/16 11:00 11:30 12:00 Temperature Pulse Rate 81 79 100 H Respiratory 22 18 Rate Blood Pressure 101/53 109/56 113/54 O2 Sat by Pulse 98 81 L Oximetry General appearance: Present: other (continuous partial seizures on ventilator) - Neck Neck: other (on ventilator) - Respiratory Respiratory effort: other (on ventilator) Extremities: normal temperature, normal color, abnormal (the superficial skin appears to have sustained injury as noted previously, with a deeper injury laterally) - Labs CBC & Chem 7: 11/18/16 13:00 11/18/16 05:45 Labs: Abnormal lab results 11/17/16 11/17/16 11/17/16 Range/Units 12:19 16:52 23:44 WBC (4.5-11.0) K/mm3 RBC (3.65-5.03) M/mm3 Hgb (10.1-14.3) gm/dl Hct (30.3-42.9) % RDW (13.2-15.2) % Lymph % (Auto) (13.4-35.0) % Seg Neutrophils % (40.0-70.0) % Seg Neutrophils # (1.8-7.7) K/mm3 PT (12.2-14.9) Sec. INR (0.87-1.13) APTT (24.2-36.6) Sec. Heparin Anti-Xa Level (0.3-0.7) U.I./ml POC ABG pH (7.35-7.45) POC ABG pCO2 (35-45) POC ABG pO2 (80-105) Chloride (98-107) mmol/L Carbon Dioxide (22-30) mmol/L Glucose (65-100) mg/dL POC Glucose 264 H 256 H 109 H (70-105) Calcium (8.4-10.2) mg/dL Total Protein (6.3-8.2) g/dL Albumin (3.9-5) g/dL 11/18/16 11/18/16 11/18/16 Range/Units 04:53 05:31 05:45 WBC (4.5-11.0) K/mm3 RBC (3.65-5.03) M/mm3 Hgb (10.1-14.3) gm/dl Hct (30.3-42.9) % RDW (13.2-15.2) % Lymph % (Auto) (13.4-35.0) % Seg Neutrophils % (40.0-70.0) % Seg Neutrophils # (1.8-7.7) K/mm3 PT 20.1 H (12.2-14.9) Sec. INR 1.72 H (0.87-1.13) APTT 131.1 H* (24.2-36.6) Sec. Heparin Anti-Xa Level 0.18 L (0.3-0.7) U.I./ml POC ABG pH 7.252 L (7.35-7.45) POC ABG pCO2 32.0 L (35-45) POC ABG pO2 (80-105) Chloride (98-107) mmol/L Carbon Dioxide (22-30) mmol/L Glucose (65-100) mg/dL POC Glucose 287 H (70-105) Calcium (8.4-10.2) mg/dL Total Protein (6.3-8.2) g/dL Albumin (3.9-5) g/dL 11/18/16 11/18/16 11/18/16 Range/Units 05:45 05:45 09:17 WBC 13.3 H (4.5-11.0) K/mm3 RBC 3.07 L (3.65-5.03) M/mm3 Hgb 9.2 L (10.1-14.3) gm/dl Hct 29.5 L (30.3-42.9) % RDW 16.9 H (13.2-15.2) % Lymph % (Auto) 11.0 L (13.4-35.0) % Seg Neutrophils % 82.9 H (40.0-70.0) % Seg Neutrophils # 11.0 H (1.8-7.7) K/mm3 PT (12.2-14.9) Sec. INR (0.87-1.13) APTT (24.2-36.6) Sec. Heparin Anti-Xa Level (0.3-0.7) U.I./ml POC ABG pH (7.35-7.45) POC ABG pCO2 24.3 L (35-45) POC ABG pO2 79 L (80-105) Chloride 107.1 H (98-107) mmol/L Carbon Dioxide 17 L (22-30) mmol/L Glucose 284 H (65-100) mg/dL POC Glucose (70-105) Calcium 7.2 L (8.4-10.2) mg/dL Total Protein 5.5 L (6.3-8.2) g/dL Albumin 2.1 L (3.9-5) g/dL 11/18/16 11/18/16 11/18/16 Range/Units 12:06 12:09 13:00 WBC 12.6 H (4.5-11.0) K/mm3 RBC 2.79 L (3.65-5.03) M/mm3 Hgb 8.6 L (10.1-14.3) gm/dl Hct 26.6 L (30.3-42.9) % RDW 17.0 H (13.2-15.2) % Lymph % (Auto) (13.4-35.0) % Seg Neutrophils % (40.0-70.0) % Seg Neutrophils # (1.8-7.7) K/mm3 PT (12.2-14.9) Sec. INR (0.87-1.13) APTT (24.2-36.6) Sec. Heparin Anti-Xa Level (0.3-0.7) U.I./ml POC ABG pH (7.35-7.45) POC ABG pCO2 (35-45) POC ABG pO2 (80-105) Chloride (98-107) mmol/L Carbon Dioxide (22-30) mmol/L Glucose (65-100) mg/dL POC Glucose 433 H 429 H (70-105) Calcium (8.4-10.2) mg/dL Total Protein (6.3-8.2) g/dL Albumin (3.9-5) g/dL
[2016-11-18] MEDS ORDERED: DILANTIN IV SCH ×2 (14:00)
[2016-11-18] MEDS: DILANTIN IV SCH ×2 (15:00→21:51)
--- NOTE | 2016-11-18 15:32 | Progress Note ---
Assessment and Plan Assessment and plan: 66-year-old woman who presented with lethargy and altered mental status she deteriorated and was intubated and in emergency room, she was managed for DKA and she also developed sepsis due to UTI and right lower extremity ischemia * S/P cardiopulomary arrest. * A/C respiratory failure with hypercapenia * Seizure-Per family prior hx * acute ischemia of right lower ext due to SFA thrombosis- s/p right BKA * LUCY likely vasomotor nephropathy-resolved * Sepsis- Multifactorial * Anemia of chronic disease * Hematuria * Metabolic acidosis * Severe Hypokalemia-resolved Plan: * Continue supportive care will obtain a CT of the head to rule out any other pathology. Heparin had to be held due to the risk associated considering recent CPR with chest compressions. * Patient remains at risk for right BKA remains poor prognosis and likely will need a conversion to AKA. Holding off heparin which is necessary at this time also worsens that prescription. * Continue subcutaneous insulin and electrolyte replacement * Patient unfortunately has poor prognosis has been unable to be weaned from the vent prior to the cardiopulmonary arrest was doing well on spontaneous breathing and event. * Antibiotics per ID * Continue Cardizem and beta juan antonio * Monitor electrolytes and hemoglobin. * We'll obtain CT head. Patient given a loading dose off Dilantin. We'll start Dilantin scheduled. I'll obtain neurology evaluation * DVT and GI prophylaxis * family updated- spouse in room with patient 35 mins critical care time. History Interval history: Patient seen and examined, CODED lastnight with PEA. revived following 3 epi. Still with unresponsive with non purposeful movements. Hospitalist Physical - Physical exam Narrative exam: VITAL SIGNS: Reviewed. GENERAL: vent support Vital signs as documented. HEAD: No signs of head trauma. EYES: Pupils are equal. Extraocular motions intact. EARS: Hearing grossly intact. MOUTH: missing dentition NECK: Trach CHEST: Chest with diminshed CARDIAC: Regular rate and rhythm. S1 and S2, without murmurs, gallops, or rubs. VASCULAR: trace Edema. Peripheral pulses left lower ext ABDOMEN: Soft, distended, tender. No rebound or guarding, and no masses palpated. Bowel Sounds normal. MUSCULOSKELETAL: BKA right lower extremity dressing in place. Some necrosis to the lateral aspect. NEUROLOGIC EXAM: not following commands, opens and closes eyes none purposeful PSYCHIATRIC: unable to assess SKIN: dressing to right lower ext stump - Constitutional Vitals: Temp Pulse Resp BP Pulse Ox 98.8 F 100 H 18 113/54 100 11/18/16 08:00 11/18/16 12:00 11/18/16 11:30 11/18/16 12:00 11/18/16 14:27 General appearance: Present: no acute distress Results - Labs CBC & Chem 7: 11/18/16 13:00 11/18/16 05:45 Labs: Laboratory Last Values WBC 12.6 K/mm3 (4.5-11.0) H 11/18/16 13:00 RBC 2.79 M/mm3 (3.65-5.03) L 11/18/16 13:00 Hgb 8.6 gm/dl (10.1-14.3) L 11/18/16 13:00 Hct 26.6 % (30.3-42.9) L 11/18/16 13:00 MCV 95 fl (79-97) 11/18/16 13:00 MCH 31 pg (28-32) 11/18/16 13:00 MCHC 32 % (30-34) 11/18/16 13:00 RDW 17.0 % (13.2-15.2) H 11/18/16 13:00 Plt Count 417 K/mm3 (140-440) 11/18/16 13:00 Lymph % (Auto) 11.0 % (13.4-35.0) L 11/18/16 05:45 Bullock % (Auto) 4.8 % (0.0-7.3) 11/18/16 05:45 Eos % (Auto) 1.0 % (0.0-4.3) 11/18/16 05:45 Baso % (Auto) 0.3 % (0.0-1.8) 11/18/16 05:45 Lymph # 1.5 K/mm3 (1.2-5.4) 11/18/16 05:45 Bullock # 0.6 K/mm3 (0.0-0.8) 11/18/16 05:45 Eos # 0.1 K/mm3 (0.0-0.4) 11/18/16 05:45 Baso # 0.0 K/mm3 (0.0-0.1) 11/18/16 05:45 Add Manual Diff Complete 11/14/16 04:42 Total Counted 100 11/14/16 04:42 Seg Neutrophils % 82.9 % (40.0-70.0) H 11/18/16 05:45 Seg Neuts % (Manual) 79.0 % (40.0-70.0) H 11/14/16 04:42 Band Neutrophils % 6.0 % 11/14/16 04:42 Lymphocytes % (Manual) 10.0 % (13.4-35.0) L 11/14/16 04:42 Reactive Lymphs % (Man) 0 % 11/14/16 04:42 Monocytes % (Manual) 5.0 % (0.0-7.3) 11/14/16 04:42 Eosinophils % (Manual) 0 % (0.0-4.3) 11/14/16 04:42 Basophils % (Manual) 0 % (0.0-1.8) 11/14/16 04:42 Metamyelocytes % 0 % 11/14/16 04:42 Myelocytes % 0 % 11/14/16 04:42 Promyelocytes % 0 % 11/14/16 04:42 Blast Cells % 0 % 11/14/16 04:42 Nucleated RBC % Not Reportable 11/14/16 04:42 Seg Neutrophils # 11.0 K/mm3 (1.8-7.7) H 11/18/16 05:45 Seg Neutrophils # Man 9.2 K/mm3 (1.8-7.7) H 11/14/16 04:42 Band Neutrophils # 0.7 K/mm3 11/14/16 04:42 Lymphocytes # (Manual) 1.2 K/mm3 (1.2-5.4) 11/14/16 04:42 Abs React Lymphs (Man) 0.0 K/mm3 11/14/16 04:42 Monocytes # (Manual) 0.6 K/mm3 (0.0-0.8) 11/14/16 04:42 Eosinophils # (Manual) 0.0 K/mm3 (0.0-0.4) 11/14/16 04:42 Basophils # (Manual) 0.0 K/mm3 (0.0-0.1) 11/14/16 04:42 Metamyelocytes # 0.0 K/mm3 11/14/16 04:42 Myelocytes # 0.0 K/mm3 11/14/16 04:42 Promyelocytes # 0.0 K/mm3 11/14/16 04:42 Blast Cells # 0.0 K/mm3 11/14/16 04:42 Pathologist Review 10/29/16 09:30 WBC Morphology Not Reportable 11/14/16 04:42 Hypersegmented Neuts Not Reportable 11/14/16 04:42 Hyposegmented Neuts Not Reportable 11/14/16 04:42 Hypogranular Neuts Not Reportable 11/14/16 04:42 Hypersegmented Polys TNR 10/17/16 07:08 Smudge Cells Not Reportable 11/14/16 04:42 Toxic Granulation Not Reportable 11/14/16 04:42 Toxic Vacuolation Not Reportable 11/14/16 04:42 Dohle Bodies Not Reportable 11/14/16 04:42 Pelger-Huet Anomaly Not Reportable 11/14/16 04:42 [place] Rods Not Reportable 11/14/16 04:42 Platelet Estimate Consistent w auto 11/14/16 04:42 Clumped Platelets Not Reportable 11/14/16 04:42 Plt Clumps, EDTA Not Reportable 11/14/16 04:42 Large Platelets Not Reportable 11/14/16 04:42 Giant Platelets Not Reportable 11/14/16 04:42 Platelet Satelliting Not Reportable 11/14/16 04:42 Plt Morphology Comment Not Reportable 11/14/16 04:42 RBC Morphology Not Reportable 11/14/16 04:42 Dimorphic RBCs Not Reportable 11/14/16 04:42 Polychromasia Not Reportable 11/14/16 04:42 Hypochromasia Not Reportable 11/14/16 04:42 Poikilocytosis Not Reportable 11/14/16 04:42 Basophilic Stippling TNR 10/17/16 07:08 Anisocytosis 1+ 11/14/16 04:42 Microcytosis Not Reportable 11/14/16 04:42 Macrocytosis Not Reportable 11/14/16 04:42 Spherocytes Not Reportable 11/14/16 04:42 Pappenheimer Bodies Not Reportable 11/14/16 04:42 Sickle Cells Not Reportable 11/14/16 04:42 Target Cells Not Reportable 11/14/16 04:42 Tear Drop Cells Not Reportable 11/14/16 04:42 Ovalocytes Not Reportable 11/14/16 04:42 Stomatocytes Few 11/03/16 00:05 Helmet Cells Not Reportable 11/14/16 04:42 [place] Bodies Not Reportable 11/14/16 04:42 [place] Rings Not Reportable 11/14/16 04:42 Jeannette Cells Not Reportable 11/14/16 04:42 Bite Cells Not Reportable 11/14/16 04:42 Crenated Cell Not Reportable 11/14/16 04:42 Elliptocytes Not Reportable 11/14/16 04:42 Acanthocytes (Spur) Not Reportable 11/14/16 04:42 Rouleaux Not Reportable 11/14/16 04:42 Hemoglobin C Crystals Not Reportable 11/14/16 04:42 Schistocytes Not Reportable 11/14/16 04:42 Malaria parasites Not Reportable 11/14/16 04:42 David Bodies Not Reportable 11/14/16 04:42 Hem Pathologist Commnt No 11/14/16 04:42 PT 20.1 Sec. (12.2-14.9) H 11/18/16 05:45 INR 1.72 (0.87-1.13) H 11/18/16 05:45 APTT 131.1 Sec. (24.2-36.6) H* 11/18/16 05:45 Heparin Anti-Xa Level 0.51 U.I./ml (0.3-0.7) 11/18/16 11:16 POC ABG pH 7.434 (7.35-7.45) 11/18/16 09:17 POC ABG pCO2 24.3 (35-45) L 11/18/16 09:17 POC ABG pO2 79 (80-105) L 11/18/16 09:17 POC ABG HCO3 16.3 11/18/16 09:17 POC ABG Total CO2 17 11/18/16 09:17 POC ABG O2 Sat 96 11/18/16 09:17 POC ABG Base Excess -8 11/18/16 09:17 VBG pH 7.020 (7.320-7.420) L* 10/13/16 04:22 FiO2 50 % 11/18/16 09:17 Sodium 143 mmol/L (137-145) 11/18/16 05:45 Potassium 3.7 mmol/L (3.6-5.0) 11/18/16 05:45 Chloride 107.1 mmol/L (98-107) H 11/18/16 05:45 Carbon Dioxide 17 mmol/L (22-30) L 11/18/16 05:45 Anion Gap 23 mmol/L 11/18/16 05:45 BUN 7 mg/dL (7-17) 11/18/16 05:45 Creatinine 1.0 mg/dL (0.7-1.2) 11/18/16 05:45 Estimated GFR > 60 ml/min 11/18/16 05:45 BUN/Creatinine Ratio 7.00 % 11/18/16 05:45 Glucose 284 mg/dL (65-100) H 11/18/16 05:45 POC Glucose 429 (70-105) H 11/18/16 12:09 Osmolality 332 Mosm/kg 10/14/16 07:03 Lactic Acid 1.8 mmol/L (0.7-2.0) 10/14/16 07:03 Calcium 7.2 mg/dL (8.4-10.2) L 11/18/16 05:45 Phosphorus 2.7 mg/dL (2.5-4.5) D 10/21/16 Unknown Magnesium 2.0 mg/dL (1.7-2.3) 11/17/16 04:32 Total Bilirubin 0.2 mg/dL (0.1-1.2) 11/18/16 05:45 AST 26 units/L (5-40) 11/18/16 05:45 ALT 9 units/L (7-56) 11/18/16 05:45 Alkaline Phosphatase 92 units/L (35-129) 11/18/16 05:45 Ammonia 35.0 umol/L (25-60) 10/13/16 05:40 Total Creatine Kinase 107 units/L (30-135) 10/13/16 04:22 CK-MB (CK-2) 3.1 ng/mL (0.0-4.0) 10/13/16 04:22 CK-MB (CK-2) Rel Index 2.8 (0-4) 10/13/16 04:22 Troponin T < 0.010 ng/mL (0.00-0.029) 10/14/16 18:55 C-Reactive Protein 10.50 mg/dL (0.00-1.30) H 10/13/16 16:14 Total Protein 5.5 g/dL (6.3-8.2) L 11/18/16 05:45 Albumin 2.1 g/dL (3.9-5) L 11/18/16 05:45 Albumin/Globulin Ratio 0.6 % 11/18/16 05:45 Amylase 30 units/L (27-131) 11/10/16 04:30 Lipase 41 units/L (13-60) 11/10/16 04:30 Vitamin B12 976.8 pg/mL (211-911) H 10/22/16 10:25 TSH 0.162 mlU/mL (0.270-4.200) L 10/22/16 14:50 Free T4 0.77 ng/dL (0.76-1.46) 10/22/16 14:50 Urine Color Yellow (Yellow) 11/14/16 19:39 Urine Turbidity Cloudy (Clear) 11/14/16 19:39 Urine pH 6.0 (5.0-7.0) 11/14/16 19:39 Ur Specific Larue 1.010 (1.003-1.030) 11/14/16 19:39 Urine Protein 30 mg/dl mg/dL (Negative) 11/14/16 19:39 Urine Glucose (UA) 50 mg/dL (Negative) 11/14/16 19:39 Urine Ketones 20 mg/dL (Negative) 11/14/16 19:39 Urine Blood Lg (Negative) 11/14/16 19:39 Urine Nitrite Neg (Negative) 11/14/16 19:39 Urine Bilirubin Neg (Negative) 11/14/16 19:39 Urine Urobilinogen < 2.0 mg/dL (<2.0) 11/14/16 19:39 Ur Leukocyte Esterase Sm (Negative) 11/14/16 19:39 Urine WBC (Auto) 3.0 /HPF (0.0-6.0) 11/14/16 19:39 Urine RBC (Auto) > 182.0 /HPF (0.0-6.0) 11/14/16 19:39 U Epithel Cells (Auto) 1.0 /HPF (0-13.0) 10/15/16 11:05 Urine Bacteria (Auto) 1+ /HPF (Negative) 11/14/16 19:39 Urine Mucus Few /HPF 11/14/16 19:39 Urine Yeast (Budding) 2+ /HPF 10/15/16 11:05 Urine Osmolality 487 Mosm/kg 10/13/16 Unknown Urine Creatinine < 4.2 mg/dL (0.1-20.0) 10/13/16 Unknown Protein/Creatinin Ratio 0.00 10/13/16 Unknown Urine Sodium 10 mEq/L 10/13/16 Unknown Urine Potassium 1.00 mEq/L 10/13/16 Unknown Urine Chloride 10.0 mEq/L (110-250) L 10/13/16 Unknown Urine Total Protein < 4 mg/dL (5-11.8) L 10/13/16 Unknown Vancomycin Trough 35.4 ug/mL (5.0-20.0) H 11/08/16 20:45 Random Vancomycin 19.4 ug/mL (0-40.0) 11/11/16 06:15 Ketones 107.3 mg/dL (0.2-2.8) H 10/13/16 04:22 Blood Type A POSITIVE 11/03/16 18:01 Antibody Screen Negative 11/03/16 18:01 Crossmatch See Detail 11/03/16 18:01
[2016-11-18 15:36] LABS: Anisocytosis 1+; Basophils % (Manual) 0 % (0.0-1.8); Blastocytes % (Manual) 0 %; Eosinophils % (Manual) 0 % (0.0-4.3)
[2016-11-18 15:37] LABS: Platelet Estimate Consistent w Auto
[2016-11-18 15:38] LABS: Diff Status Complete
--- NOTE | 2016-11-18 15:43 | Progress Note ---
Subjective Date of service: 11/18/16 Principal diagnosis: respiratory failure on mechanical ventilatory support, DKA Interval history: Patient coded this am. Resuscitated with acls protocol. Vital signs - Temp 100.1 CHEST - GOOD AIR ENTRY CVS - S1S2 ABD - BS_ right stump - cellulitis LABS See lab section. ASSESSMENT 1. Sepsis 2. dka 3. resp failure 4. htn 5. clostridium difficile colitis 6. bilateral pneumonia 6. RIGHT LEG GANGRENE s/p amputation 7. s/p cardiopulmonary arrest. RECOMMENDATION 1. add iv flagyl 2. cbc/bmp in am 3. blood culture x2. ua and uc. Objective - Constitutional Vitals: Vital Signs Temp Pulse Resp BP Pulse Ox 98.8 F 100 H 18 113/54 100 11/18/16 08:00 11/18/16 12:00 11/18/16 11:30 11/18/16 12:00 11/18/16 14:27 Temperature -Last 24 Hours Temperature 98.8 F Temperature 100.1 F Temperature 99.2 F Temperature 99.0 F Temperature 98.4 F - Labs CBC & Chem 7: 11/18/16 13:00 11/18/16 05:45 Labs: Abnormal lab results 11/17/16 11/17/16 11/18/16 Range/Units 16:52 23:44 04:53 WBC (4.5-11.0) K/mm3 RBC (3.65-5.03) M/mm3 Hgb (10.1-14.3) gm/dl Hct (30.3-42.9) % RDW (13.2-15.2) % Lymph % (Auto) (13.4-35.0) % Seg Neutrophils % (40.0-70.0) % Seg Neuts % (Manual) (40.0-70.0) % Lymphocytes % (Manual) (13.4-35.0) % Seg Neutrophils # (1.8-7.7) K/mm3 Seg Neutrophils # Man (1.8-7.7) K/mm3 Lymphocytes # (Manual) (1.2-5.4) K/mm3 PT (12.2-14.9) Sec. INR (0.87-1.13) APTT (24.2-36.6) Sec. Heparin Anti-Xa Level (0.3-0.7) U.I./ml POC ABG pH (7.35-7.45) POC ABG pCO2 (35-45) POC ABG pO2 (80-105) Chloride (98-107) mmol/L Carbon Dioxide (22-30) mmol/L Glucose (65-100) mg/dL POC Glucose 256 H 109 H 287 H (70-105) Calcium (8.4-10.2) mg/dL Total Protein (6.3-8.2) g/dL Albumin (3.9-5) g/dL 11/18/16 11/18/16 11/18/16 Range/Units 05:31 05:45 05:45 WBC (4.5-11.0) K/mm3 RBC (3.65-5.03) M/mm3 Hgb (10.1-14.3) gm/dl Hct (30.3-42.9) % RDW (13.2-15.2) % Lymph % (Auto) (13.4-35.0) % Seg Neutrophils % (40.0-70.0) % Seg Neuts % (Manual) (40.0-70.0) % Lymphocytes % (Manual) (13.4-35.0) % Seg Neutrophils # (1.8-7.7) K/mm3 Seg Neutrophils # Man (1.8-7.7) K/mm3 Lymphocytes # (Manual) (1.2-5.4) K/mm3 PT 20.1 H (12.2-14.9) Sec. INR 1.72 H (0.87-1.13) APTT 131.1 H* (24.2-36.6) Sec. Heparin Anti-Xa Level 0.18 L (0.3-0.7) U.I./ml POC ABG pH 7.252 L (7.35-7.45) POC ABG pCO2 32.0 L (35-45) POC ABG pO2 (80-105) Chloride 107.1 H (98-107) mmol/L Carbon Dioxide 17 L (22-30) mmol/L Glucose 284 H (65-100) mg/dL POC Glucose (70-105) Calcium 7.2 L (8.4-10.2) mg/dL Total Protein 5.5 L (6.3-8.2) g/dL Albumin 2.1 L (3.9-5) g/dL 11/18/16 11/18/16 11/18/16 Range/Units 05:45 09:17 12:06 WBC 13.3 H (4.5-11.0) K/mm3 RBC 3.07 L (3.65-5.03) M/mm3 Hgb 9.2 L (10.1-14.3) gm/dl Hct 29.5 L (30.3-42.9) % RDW 16.9 H (13.2-15.2) % Lymph % (Auto) 11.0 L (13.4-35.0) % Seg Neutrophils % 82.9 H (40.0-70.0) % Seg Neuts % (Manual) (40.0-70.0) % Lymphocytes % (Manual) (13.4-35.0) % Seg Neutrophils # 11.0 H (1.8-7.7) K/mm3 Seg Neutrophils # Man (1.8-7.7) K/mm3 Lymphocytes # (Manual) (1.2-5.4) K/mm3 PT (12.2-14.9) Sec. INR (0.87-1.13) APTT (24.2-36.6) Sec. Heparin Anti-Xa Level (0.3-0.7) U.I./ml POC ABG pH (7.35-7.45) POC ABG pCO2 24.3 L (35-45) POC ABG pO2 79 L (80-105) Chloride (98-107) mmol/L Carbon Dioxide (22-30) mmol/L Glucose (65-100) mg/dL POC Glucose 433 H (70-105) Calcium (8.4-10.2) mg/dL Total Protein (6.3-8.2) g/dL Albumin (3.9-5) g/dL 11/18/16 11/18/16 Range/Units 12:09 13:00 WBC 12.6 H (4.5-11.0) K/mm3 RBC 2.79 L (3.65-5.03) M/mm3 Hgb 8.6 L (10.1-14.3) gm/dl Hct 26.6 L (30.3-42.9) % RDW 17.0 H (13.2-15.2) % Lymph % (Auto) (13.4-35.0) % Seg Neutrophils % (40.0-70.0) % Seg Neuts % (Manual) 90.0 H (40.0-70.0) % Lymphocytes % (Manual) 8.0 L (13.4-35.0) % Seg Neutrophils # (1.8-7.7) K/mm3 Seg Neutrophils # Man 11.3 H (1.8-7.7) K/mm3 Lymphocytes # (Manual) 1.0 L (1.2-5.4) K/mm3 PT (12.2-14.9) Sec. INR (0.87-1.13) APTT (24.2-36.6) Sec. Heparin Anti-Xa Level (0.3-0.7) U.I./ml POC ABG pH (7.35-7.45) POC ABG pCO2 (35-45) POC ABG pO2 (80-105) Chloride (98-107) mmol/L Carbon Dioxide (22-30) mmol/L Glucose (65-100) mg/dL POC Glucose 429 H (70-105) Calcium (8.4-10.2) mg/dL Total Protein (6.3-8.2) g/dL Albumin (3.9-5) g/dL
[2016-11-18] MEDS: FLAGYL 500 MG/100 ML 500 MG/100 ML BAG IV SCH (17:35)
[2016-11-19] MEDS: REGLAN IV SCH ×4 (00:24→18:34)
[2016-11-19] MEDS: FLAGYL 500 MG/100 ML 500 MG/100 ML BAG IV SCH ×4 (00:24→23:54)
[2016-11-19 05:13] LABS: Hemoglobin 8.8 gm/dl (10.1-14.3); Mean Corpuscular HGB Conc 33 % (30-34); Mean Corpuscular Hemoglobin 30 pg (28-32); Mean Corpuscular Volume 93 fl (79-97); Platelet Count 390 K/mm3 (140-440); Red Blood Count 2.92 M/mm3 (3.65-5.03); Red Cell Distribution Width 16.6 % (13.2-15.2); White Blood Count 10.8 K/mm3 (4.5-11.0)
[2016-11-19 05:33] LABS: Alanine Aminotransferase 7 units/L (7-56); Albumin 2.1 g/dL (3.9-5); Albumin/Globulin Ratio 0.6 %; Alkaline Phosphatase 82 units/L (35-129); Anion Gap 18 mmol/L; Bilirubin,Total 0.2 mg/dL (0.1-1.2); Blood Urea Nitrogen 9 mg/dL (7-17); Calcium 7.1 mg/dL (8.4-10.2); Carbon Dioxide 20 mmol/L (22-30); Chloride 107.9 mmol/L (98-107); Glucose 231 mg/dL (65-100); Sodium 143 mmol/L (137-145); Total Protein 5.5 g/dL (6.3-8.2)
[2016-11-19] MEDS: DILANTIN IV SCH ×3 (06:09→22:02)
[2016-11-19] MEDS ORDERED: NACL 0.9% 1000 ML ONE (08:00)
[2016-11-19] MEDS ORDERED: [UNRECOGNIZED DRUG - REMARK] IV ONE (08:00)
--- NOTE | 2016-11-19 08:43 | XRay Report ---
Single view chest: Compared to 11/18/16. History: Acute respiratory failure. Findings: Cardiomegaly. Stable support system. Pulmonary venous congestion bilaterally with bilateral pleural effusion. Increase in pulmonary venous congestion compared to previous study. Impression: Increase in pulmonary venous congestion compared to previous study.
[2016-11-19] MEDS: LEVAQUIN 750MG/150ML 750 MG/150 ML BAG IV SCH (09:42)
[2016-11-19] MEDS: PLAVIX PO SCH (09:42)
[2016-11-19] MEDS: PEPCID PO SCH ×2 (09:43→22:01)
[2016-11-19] MEDS: POTASSIUM CHLORIDE FEEDTUBE SCH ×2 (09:45→14:34)
--- NOTE | 2016-11-19 10:04 | Progress Note ---
Assessment and Plan Cont Lopressor, 25mg Q6H. Hold for SBP <100 and HR <60. Replete lytes PRN to maintatin serum K+ ~4 and serum Mg ~2. Prognosis is guarded. The patient has been seen in conjunction with Dr. Lama who agrees with the assessment and plan of care. - Patient Problems (1) Cardiac arrest Current Visit: Yes Status: Resolved (2) Sinus tachycardia Current Visit: Yes Status: Acute Plan to address problem: Physiologic in setting of sepsis, fever, respiratory failure, anemia. Cont BB as tolerated. Cont tele. (3) Acute respiratory failure with hypercapnia Current Visit: Yes Status: Acute (4) Sepsis Current Visit: Yes Status: Acute Qualifiers: Sepsis type: S (5) PVD (peripheral vascular disease) Current Visit: Yes Status: Chronic (6) S/P BKA (below knee amputation) Current Visit: Yes Status: Chronic Qualifiers: Laterality: L (7) DVT (deep venous thrombosis) Current Visit: Yes Status: Acute Qualifiers: DVT location: D Affected thrombotic vein of extremity: A Laterality: L Chronicity: C (8) Anemia Current Visit: Yes Status: Acute Qualifiers: Anemia type: A Iron deficiency anemia type: I Vitamin B12 deficiency anemia type: V Folate deficiency anemia type: F Bone marrow failure anemia type: B Hemolytic anemia type: H Other causes of anemia: O (9) Diabetes Current Visit: Yes Status: Chronic Qualifiers: Diabetes mellitus type: D Diabetes mellitus complication status: D Diabetes mellitus complication detail: D Diabetic retinopathy severity: D Proliferative retinopathy type: P Diabetes mellitus macular edema: D Diabetes mellitus retirement insulin use: D Laterality: L Chronic kidney disease stage: C Subjective Date of service: 11/19/16 Principal diagnosis: respiratory failure on mechanical ventilatory support, DKA Interval history: Pt resting comfortably in bed, remains intubated, is alert but does not follow commands. s/p cardiac arrest yesterday AM (initial rhythm PEA, ACLS protocol initiated, ROSC after [address]). [address] on tele, HR 110s - 120, BPs stable. Weaned off levophed this AM. Objective Last Vital Signs Temp 99.0 F 11/19/16 08:00 Pulse 116 H 11/19/16 08:10 Resp 28 H 11/19/16 06:30 BP 132/68 11/19/16 08:10 Pulse Ox 100 11/19/16 08:10 - Physical Examination General: No Apparent Distress HEENT: Positive: Normocephaly, Mucus Membranes Moist Neck: Positive: neck supple, trachea midline, Other (trach) Cardiac: Positive: Regular Rhythm, S1/S2, Other (tachycardic) Lungs: Positive: Decreased Breath Sounds, Oxygen, Ventilated Respirations Neuro: Positive: Grossly Intact Abdomen: Positive: Soft. Negative: Tender Skin: Positive: Clear. Negative: Rash Extremities: Present: Other (right below-knee amputation left leg no edema) - Labs and Meds Cardiac Enzymes 11/19/16 Range/Units 04:30 AST 9 (5-40) units/L CBC 11/18/16 11/19/16 Range/Units 13:00 04:30 WBC 12.6 H 10.8 (4.5-11.0) K/mm3 RBC 2.79 L 2.92 L (3.65-5.03) M/mm3 Hgb 8.6 L 8.8 L (10.1-14.3) gm/dl Hct 26.6 L 27.0 L (30.3-42.9) % Plt Count 417 390 (140-440) K/mm3 Comprehensive Metabolic Panel 11/19/16 Range/Units 04:30 Sodium 143 (137-145) mmol/L Potassium 3.0 L (3.6-5.0) mmol/L Chloride 107.9 H (98-107) mmol/L Carbon Dioxide 20 L (22-30) mmol/L BUN 9 (7-17) mg/dL Creatinine 0.9 (0.7-1.2) mg/dL Glucose 231 H (65-100) mg/dL Calcium 7.1 L (8.4-10.2) mg/dL AST 9 (5-40) units/L ALT 7 (7-56) units/L Alkaline Phosphatase 82 (35-129) units/L Total Protein 5.5 L (6.3-8.2) g/dL Albumin 2.1 L (3.9-5) g/dL - Imaging and Cardiology Echo: report reviewed (tds 10/24/2016 normal LV function with no significant regurgitations) - Telemetry EKG Rhythm: Sinus Tachycardia - Allied health notes Allied health notes reviewed: RT
--- NOTE | 2016-11-19 10:07 | Progress Note ---
Assessment and Plan - Patient Problems (1) Acute respiratory failure with hypercapnia Current Visit: Yes Status: Acute Plan to address problem: - continue aspiration precautions / VAP bundles - continue bronchodilators and pulmonary toilet - continue to wean oxygen to keep sats > 94% - hold daily bedside SBT's today while neuro-imaging is conducted - cardiac arrest and post arrest encephalopathy makes weaning likelyhood even poorer (2) Altered mental status Current Visit: Yes Status: Acute Qualifiers: Altered mental status type: A Coma depth: C Coma timing: C Plan to address problem: - likely anoxic encephalopathy at this point - no active grand-mal seizures - seen by neurology and will follow their recommendations - discuss with neurology re: MRI vs CT brain (3) LUCY (acute kidney injury) Current Visit: Yes Status: Acute Plan to address problem: - resolved - following I's & O's - hypokalemia corrected (4) DKA (diabetic ketoacidoses) Current Visit: Yes Status: Acute Qualifiers: Diabetes mellitus type: D Diabetes mellitus complication detail: D Plan to address problem: - resolved - continue SSI (5) Sepsis Current Visit: No Status: Acute Qualifiers: Sepsis type: S Plan to address problem: - continue anti-infectives per ID recs - follow clinically (improved) - trend lactate and CRP prn - improving numbers post amputation (6) Emesis Current Visit: Yes Status: Acute Qualifiers: Vomiting type: V Vomiting Intractability: V Nausea presence: N Plan to address problem: - continue increased reglan dose - reduced fentanyl dose and using other sedatives/anxiolytics (re: opiates and G.I. motility) - continue aspiration precautions - GI input appreciated (7) Discharge planning issues Current Visit: No Status: Acute Plan to address problem: - cardiac arrest and potential anoxic encephalopathy makes prognosis more guarded now ...for now remains critically ill on life sustaining treatments including MVS and at high risk for further deterioration including ...35'' CCT Subjective Date of service: 11/19/16 Principal diagnosis: respiratory failure on mechanical ventilatory support, DKA Interval history: Seen and examined at bedside; 24 hour events reviewed; nursing and respiratory care staff consulted; no adverse overnight events reported to me; s/p cardiac arrest over the weekend; anoxic mental status changes so far with reduced LOC; also not tolerating tube feeds well; no gross bleeding; just weaned off levophed Objective Vital Signs - 12hr 11/18/16 11/18/16 11/18/16 22:31 23:00 23:30 Temperature Pulse Rate 79 80 82 Respiratory 29 H 23 19 Rate Blood Pressure 95/40 99/40 95/41 O2 Sat by Pulse 100 100 100 Oximetry 11/18/16 11/19/16 11/19/16 23:33 00:00 00:01 Temperature 98.1 F Pulse Rate 82 86 Respiratory 22 Rate Blood Pressure 95/41 106/47 O2 Sat by Pulse 100 100 Oximetry 11/19/16 11/19/16 11/19/16 00:30 01:00 01:30 Temperature Pulse Rate 84 86 86 Respiratory 28 H 17 30 H Rate Blood Pressure 104/54 106/44 107/52 O2 Sat by Pulse 100 100 100 Oximetry 11/19/16 11/19/16 11/19/16 02:00 02:30 03:00 Temperature Pulse Rate 88 87 87 Respiratory 26 H 29 H 30 H Rate Blood Pressure 91/52 114/56 110/48 O2 Sat by Pulse 100 100 100 Oximetry 11/19/16 11/19/16 11/19/16 03:30 04:00 04:30 Temperature 97.6 F Pulse Rate 86 87 87 Respiratory 27 H 27 H 29 H Rate Blood Pressure 113/49 116/49 116/53 O2 Sat by Pulse 100 100 Oximetry 11/19/16 11/19/16 11/19/16 04:35 05:01 05:30 Temperature Pulse Rate 88 98 H 93 H Respiratory 18 26 H Rate Blood Pressure 116/53 111/47 133/55 O2 Sat by Pulse 100 95 100 Oximetry 11/19/16 11/19/16 11/19/16 06:00 06:30 08:00 Temperature 99.0 F Pulse Rate 88 115 H Respiratory 26 H 28 H Rate Blood Pressure 126/51 115/61 O2 Sat by Pulse 100 99 Oximetry 11/19/16 08:10 Temperature Pulse Rate 116 H Respiratory Rate Blood Pressure 132/68 O2 Sat by Pulse 100 Oximetry Constitutional: other (Patient S/P CPR. Patient likely has anoxic encephalopathy ) Eyes: non-icteric ENT: oropharynx moist Neck: supple, no lymphadenopathy Effort: mildly labored Ascultation: Bilateral: diminished breath sounds, rales Cardiovascular: regular rate and rhythm, other (tachycardia) Gastrointestinal: normoactive bowel sounds, soft, non-tender, non-distended Integumentary: normal Extremities: no cyanosis, no edema, no ischemia or petechiae, other (s/p right BKA) Neurologic: unable to assess, other (encephalopathic) Psychiatric: anxious CBC and BMP: 11/19/16 04:30 11/19/16 04:30 ABG, PT/INR, D-dimer: ABG POC ABG pH 7.434 (7.35-7.45) 11/18/16 09:17 POC ABG pCO2 24.3 (35-45) L 11/18/16 09:17 POC ABG pO2 79 (80-105) L 11/18/16 09:17 POC ABG HCO3 16.3 11/18/16 09:17 POC ABG Total CO2 17 11/18/16 09:17 POC ABG O2 Sat 96 11/18/16 09:17 PT/INR, D-dimer PT 20.1 Sec. (12.2-14.9) H 11/18/16 05:45 INR 1.72 (0.87-1.13) H 11/18/16 05:45 Abnormal lab findings: Abnormal Labs 10/13/16 10/13/16 10/13/16 06:38 06:38 07:23 WBC RBC Hgb Hct MCV RDW Plt Count Lymph % (Auto) [place] % (Auto) [place] # Seg Neutrophils % Seg Neuts % (Manual) Lymphocytes % (Manual) Monocytes % (Manual) Basophils % (Manual) Nucleated RBC % Seg Neutrophils # Seg Neutrophils # Man Lymphocytes # (Manual) Monocytes # (Manual) Eosinophils # (Manual) Basophils # (Manual) PT INR APTT Heparin Anti-Xa Level POC ABG pH POC ABG pCO2 POC ABG pO2 Sodium Potassium 6.2 H* Chloride Carbon Dioxide 8 L* BUN 85 H Creatinine 2.8 H Glucose 602 H* POC Glucose 495 H Calcium 7.9 L Phosphorus 6.9 H D Magnesium 3.0 H AST Alkaline Phosphatase C-Reactive Protein Total Protein Albumin Lipase Vitamin B12 TSH Urine WBC (Auto) Urine Chloride Urine Total Protein Vancomycin Trough Crossmatch 10/13/16 10/13/16 10/13/16 08:49 08:55 10:12 WBC RBC Hgb Hct MCV RDW Plt Count Lymph % (Auto) [place] % (Auto) [place] # Seg Neutrophils % Seg Neuts % (Manual) Lymphocytes % (Manual) Monocytes % (Manual) Basophils % (Manual) Nucleated RBC % Seg Neutrophils # Seg Neutrophils # Man Lymphocytes # (Manual) Monocytes # (Manual) Eosinophils # (Manual) Basophils # (Manual) PT INR APTT Heparin Anti-Xa Level POC ABG pH POC ABG pCO2 POC ABG pO2 Sodium Potassium 5.6 H Chloride Carbon Dioxide 11 L BUN 77 H Creatinine 2.7 H Glucose 457 H POC Glucose > 500 H 424 H Calcium 8.0 L Phosphorus Magnesium AST Alkaline Phosphatase C-Reactive Protein Total Protein Albumin Lipase Vitamin B12 TSH Urine WBC (Auto) Urine Chloride Urine Total Protein Vancomycin Trough Crossmatch 10/13/16 10/13/16 10/13/16 10:44 11:22 12:20 WBC RBC Hgb Hct MCV RDW Plt Count Lymph % (Auto) [place] % (Auto) [place] # Seg Neutrophils % Seg Neuts % (Manual) Lymphocytes % (Manual) Monocytes % (Manual) Basophils % (Manual) Nucleated RBC % Seg Neutrophils # Seg Neutrophils # Man Lymphocytes # (Manual) Monocytes # (Manual) Eosinophils # (Manual) Basophils # (Manual) PT INR APTT Heparin Anti-Xa Level POC ABG pH POC ABG pCO2 POC ABG pO2 Sodium Potassium 5.4 H Chloride Carbon Dioxide 14 L BUN 72 H Creatinine 2.6 H Glucose 383 H POC Glucose 391 H 313 H Calcium 8.2 L Phosphorus Magnesium AST Alkaline Phosphatase C-Reactive Protein Total Protein Albumin Lipase Vitamin B12 TSH Urine WBC (Auto) Urine Chloride Urine Total Protein Vancomycin Trough Crossmatch 10/13/16 10/13/16 10/13/16 13:32 14:44 15:57 WBC RBC Hgb Hct MCV RDW Plt Count Lymph % (Auto) [place] % (Auto) [place] # Seg Neutrophils % Seg Neuts % (Manual) Lymphocytes % (Manual) Monocytes % (Manual) Basophils % (Manual) Nucleated RBC % Seg Neutrophils # Seg Neutrophils # Man Lymphocytes # (Manual) Monocytes # (Manual) Eosinophils # (Manual) Basophils # (Manual) PT INR APTT Heparin Anti-Xa Level POC ABG pH POC ABG pCO2 POC ABG pO2 Sodium Potassium Chloride Carbon Dioxide BUN Creatinine Glucose POC Glucose 296 H 210 H 190 H Calcium Phosphorus Magnesium AST Alkaline Phosphatase C-Reactive Protein Total Protein Albumin Lipase Vitamin B12 TSH Urine WBC (Auto) Urine Chloride Urine Total Protein Vancomycin Trough Crossmatch 02/10/13/16 10/13/16 16:14 16:14 17:17 WBC RBC Hgb Hct MCV RDW Plt Count Lymph % (Auto) [place] % (Auto) [place] # Seg Neutrophils % Seg Neuts % (Manual) Lymphocytes % (Manual) Monocytes % (Manual) Basophils % (Manual) Nucleated RBC % Seg Neutrophils # Seg Neutrophils # Man Lymphocytes # (Manual) Monocytes # (Manual) Eosinophils # (Manual) Basophils # (Manual) PT INR APTT Heparin Anti-Xa Level POC ABG pH POC ABG pCO2 POC ABG pO2 Sodium Potassium Chloride Carbon Dioxide 17 L BUN 58 H Creatinine 1.8 H Glucose 172 H POC Glucose 193 H Calcium 7.7 L Phosphorus Magnesium AST Alkaline Phosphatase C-Reactive Protein 10.50 H Total Protein Albumin Lipase Vitamin B12 TSH Urine WBC (Auto) Urine Chloride Urine Total Protein Vancomycin Trough Crossmatch 10/13/16 10/13/16 10/13/16 17:55 18:32 19:41 WBC RBC Hgb Hct MCV RDW Plt Count Lymph % (Auto) [place] % (Auto) [place] # Seg Neutrophils % Seg Neuts % (Manual) Lymphocytes % (Manual) Monocytes % (Manual) Basophils % (Manual) Nucleated RBC % Seg Neutrophils # Seg Neutrophils # Man Lymphocytes # (Manual) Monocytes # (Manual) Eosinophils # (Manual) Basophils # (Manual) PT INR APTT Heparin Anti-Xa Level POC ABG pH POC ABG pCO2 30.6 L POC ABG pO2 218 H Sodium Potassium Chloride Carbon Dioxide BUN Creatinine Glucose POC Glucose 192 H 177 H Calcium Phosphorus Magnesium AST Alkaline Phosphatase C-Reactive Protein Total Protein Albumin Lipase Vitamin B12 TSH Urine WBC (Auto) Urine Chloride Urine Total Protein Vancomycin Trough Crossmatch 10/13/16 10/13/16 10/13/16 20:54 22:07 23:13 WBC RBC Hgb Hct MCV RDW Plt Count Lymph % (Auto) [place] % (Auto) [place] # Seg Neutrophils % Seg Neuts % (Manual) Lymphocytes % (Manual) Monocytes % (Manual) Basophils % (Manual) Nucleated RBC % Seg Neutrophils # Seg Neutrophils # Man Lymphocytes # (Manual) Monocytes # (Manual) Eosinophils # (Manual) Basophils # (Manual) PT INR APTT Heparin Anti-Xa Level POC ABG pH POC ABG pCO2 POC ABG pO2 Sodium Potassium Chloride Carbon Dioxide BUN Creatinine Glucose POC Glucose 178 H 160 H 168 H Calcium Phosphorus Magnesium AST Alkaline Phosphatase C-Reactive Protein Total Protein Albumin Lipase Vitamin B12 TSH Urine WBC (Auto) Urine Chloride Urine Total Protein Vancomycin Trough Crossmatch 10/13/16 10/13/16 10/14/16 23:25 Unknown 00:21 WBC RBC Hgb Hct MCV RDW Plt Count Lymph % (Auto) [place] % (Auto) [place] # Seg Neutrophils % Seg Neuts % (Manual) Lymphocytes % (Manual) Monocytes % (Manual) Basophils % (Manual) Nucleated RBC % Seg Neutrophils # Seg Neutrophils # Man Lymphocytes # (Manual) Monocytes # (Manual) Eosinophils # (Manual) Basophils # (Manual) PT INR APTT Heparin Anti-Xa Level POC ABG pH POC ABG pCO2 POC ABG pO2 Sodium 148 H Potassium Chloride 114.6 H Carbon Dioxide 17 L BUN 56 H Creatinine 1.6 H Glucose 151 H POC Glucose 171 H Calcium 7.8 L Phosphorus Magnesium AST Alkaline Phosphatase C-Reactive Protein Total Protein Albumin Lipase Vitamin B12 TSH Urine WBC (Auto) Urine Chloride 10.0 L Urine Total Protein < 4 L Vancomycin Trough Crossmatch 10/14/16 10/14/16 10/14/16 01:22 02:29 03:30 WBC RBC Hgb Hct MCV RDW Plt Count Lymph % (Auto) [place] % (Auto) [place] # Seg Neutrophils % Seg Neuts % (Manual) Lymphocytes % (Manual) Monocytes % (Manual) Basophils % (Manual) Nucleated RBC % Seg Neutrophils # Seg Neutrophils # Man Lymphocytes # (Manual) Monocytes # (Manual) Eosinophils # (Manual) Basophils # (Manual) PT INR APTT Heparin Anti-Xa Level POC ABG pH POC ABG pCO2 POC ABG pO2 Sodium Potassium Chloride Carbon Dioxide BUN Creatinine Glucose POC Glucose 144 H 136 H 143 H Calcium Phosphorus Magnesium AST Alkaline Phosphatase C-Reactive Protein Total Protein Albumin Lipase Vitamin B12 TSH Urine WBC (Auto) Urine Chloride Urine Total Protein Vancomycin Trough Crossmatch 10/14/16 10/14/16 10/14/16 04:28 05:16 05:44 WBC RBC Hgb Hct MCV RDW Plt Count Lymph % (Auto) [place] % (Auto) [place] # Seg Neutrophils % Seg Neuts % (Manual) Lymphocytes % (Manual) Monocytes % (Manual) Basophils % (Manual) Nucleated RBC % Seg Neutrophils # Seg Neutrophils # Man Lymphocytes # (Manual) Monocytes # (Manual) Eosinophils # (Manual) Basophils # (Manual) PT INR APTT Heparin Anti-Xa Level POC ABG pH POC ABG pCO2 28.2 L POC ABG pO2 125 H Sodium Potassium Chloride Carbon Dioxide BUN Creatinine Glucose POC Glucose 133 H 160 H Calcium Phosphorus Magnesium AST Alkaline Phosphatase C-Reactive Protein Total Protein Albumin Lipase Vitamin B12 TSH Urine WBC (Auto) Urine Chloride Urine Total Protein Vancomycin Trough Crossmatch 10/14/16 10/14/16 10/14/16 06:12 06:45 07:03 WBC RBC Hgb Hct MCV RDW Plt Count Lymph % (Auto) [place] % (Auto) [place] # Seg Neutrophils % Seg Neuts % (Manual) Lymphocytes % (Manual) Monocytes % (Manual) Basophils % (Manual) Nucleated RBC % Seg Neutrophils # Seg Neutrophils # Man Lymphocytes # (Manual) Monocytes # (Manual) Eosinophils # (Manual) Basophils # (Manual) PT INR APTT Heparin Anti-Xa Level POC ABG pH POC ABG pCO2 POC ABG pO2 Sodium 149 H Potassium Chloride 115.4 H Carbon Dioxide 17 L BUN 45 H Creatinine 1.5 H Glucose 139 H POC Glucose 149 H Calcium 7.4 L Phosphorus 1.0 L D Magnesium AST Alkaline Phosphatase C-Reactive Protein Total Protein Albumin Lipase Vitamin B12 TSH Urine WBC (Auto) Urine Chloride Urine Total Protein Vancomycin Trough Crossmatch 10/14/16 10/14/16 10/14/16 07:03 08:02 09:16 WBC RBC Hgb Hct MCV RDW Plt Count Lymph % (Auto) [place] % (Auto) [place] # Seg Neutrophils % Seg Neuts % (Manual) Lymphocytes % (Manual) Monocytes % (Manual) Basophils % (Manual) Nucleated RBC % Seg Neutrophils # Seg Neutrophils # Man Lymphocytes # (Manual) Monocytes # (Manual) Eosinophils # (Manual) Basophils # (Manual) PT INR APTT Heparin Anti-Xa Level POC ABG pH POC ABG pCO2 POC ABG pO2 Sodium Potassium Chloride Carbon Dioxide BUN Creatinine Glucose POC Glucose 156 H 158 H Calcium Phosphorus Magnesium AST Alkaline Phosphatase C-Reactive Protein Total Protein Albumin Lipase 738 H Vitamin B12 TSH Urine WBC (Auto) Urine Chloride Urine Total Protein Vancomycin Trough Crossmatch 10/14/16 10/14/16 10/14/16 10:26 11:03 11:57 WBC RBC Hgb Hct MCV RDW Plt Count Lymph % (Auto) [place] % (Auto) [place] # Seg Neutrophils % Seg Neuts % (Manual) Lymphocytes % (Manual) Monocytes % (Manual) Basophils % (Manual) Nucleated RBC % Seg Neutrophils # Seg Neutrophils # Man Lymphocytes # (Manual) Monocytes # (Manual) Eosinophils # (Manual) Basophils # (Manual) PT INR APTT Heparin Anti-Xa Level POC ABG pH 7.198 L POC ABG pCO2 47.5 H POC ABG pO2 Sodium Potassium Chloride Carbon Dioxide BUN Creatinine Glucose POC Glucose 174 H 189 H Calcium Phosphorus Magnesium AST Alkaline Phosphatase C-Reactive Protein Total Protein Albumin Lipase Vitamin B12 TSH Urine WBC (Auto) Urine Chloride Urine Total Protein Vancomycin Trough Crossmatch 10/14/16 10/14/16 10/14/16 12:02 12:02 13:11 WBC 13.4 H RBC 3.60 L Hgb Hct MCV 98 H D RDW 13.1 L Plt Count Lymph % (Auto) [place] % (Auto) [place] # Seg Neutrophils % Seg Neuts % (Manual) Lymphocytes % (Manual) Monocytes % (Manual) Basophils % (Manual) Nucleated RBC % Seg Neutrophils # Seg Neutrophils # Man Lymphocytes # (Manual) Monocytes # (Manual) Eosinophils # (Manual) Basophils # (Manual) PT INR APTT Heparin Anti-Xa Level POC ABG pH POC ABG pCO2 POC ABG pO2 Sodium Potassium Chloride 110.7 H Carbon Dioxide 19 L BUN 38 H Creatinine 1.4 H Glucose 182 H POC Glucose 173 H Calcium 7.5 L Phosphorus Magnesium AST Alkaline Phosphatase C-Reactive Protein Total Protein Albumin Lipase Vitamin B12 TSH Urine WBC (Auto) Urine Chloride Urine Total Protein Vancomycin Trough Crossmatch 10/14/16 10/14/16 10/14/16 14:24 15:31 16:36 WBC RBC Hgb Hct MCV RDW Plt Count Lymph % (Auto) [place] % (Auto) [place] # Seg Neutrophils % Seg Neuts % (Manual) Lymphocytes % (Manual) Monocytes % (Manual) Basophils % (Manual) Nucleated RBC % Seg Neutrophils # Seg Neutrophils # Man Lymphocytes # (Manual) Monocytes # (Manual) Eosinophils # (Manual) Basophils # (Manual) PT INR APTT Heparin Anti-Xa Level POC ABG pH POC ABG pCO2 POC ABG pO2 Sodium Potassium Chloride Carbon Dioxide BUN Creatinine Glucose POC Glucose 123 H 124 H 156 H Calcium Phosphorus Magnesium AST Alkaline Phosphatase C-Reactive Protein Total Protein Albumin Lipase Vitamin B12 TSH Urine WBC (Auto) Urine Chloride Urine Total Protein Vancomycin Trough Crossmatch 10/14/16 10/14/16 10/14/16 17:43 19:00 20:08 WBC RBC Hgb Hct MCV RDW Plt Count Lymph % (Auto) [place] % (Auto) [place] # Seg Neutrophils % Seg Neuts % (Manual) Lymphocytes % (Manual) Monocytes % (Manual) Basophils % (Manual) Nucleated RBC % Seg Neutrophils # Seg Neutrophils # Man Lymphocytes # (Manual) Monocytes # (Manual) Eosinophils # (Manual) Basophils # (Manual) PT INR APTT Heparin Anti-Xa Level POC ABG pH POC ABG pCO2 POC ABG pO2 Sodium Potassium Chloride Carbon Dioxide BUN Creatinine Glucose POC Glucose 154 H 123 H 138 H Calcium Phosphorus Magnesium AST Alkaline Phosphatase C-Reactive Protein Total Protein Albumin Lipase Vitamin B12 TSH Urine WBC (Auto) Urine Chloride Urine Total Protein Vancomycin Trough Crossmatch 10/14/16 10/14/16 10/14/16 21:17 22:25 23:37 WBC RBC Hgb Hct MCV RDW Plt Count Lymph % (Auto) [place] % (Auto) [place] # Seg Neutrophils % Seg Neuts % (Manual) Lymphocytes % (Manual) Monocytes % (Manual) Basophils % (Manual) Nucleated RBC % Seg Neutrophils # Seg Neutrophils # Man Lymphocytes # (Manual) Monocytes # (Manual) Eosinophils # (Manual) Basophils # (Manual) PT INR APTT Heparin Anti-Xa Level POC ABG pH POC ABG pCO2 POC ABG pO2 Sodium Potassium Chloride Carbon Dioxide BUN Creatinine Glucose POC Glucose 148 H 132 H 137 H Calcium Phosphorus Magnesium AST Alkaline Phosphatase C-Reactive Protein Total Protein Albumin Lipase Vitamin B12 TSH Urine WBC (Auto) Urine Chloride Urine Total Protein Vancomycin Trough Crossmatch 10/15/16 10/15/16 10/15/16 00:49 01:53 03:06 WBC RBC Hgb Hct MCV RDW Plt Count Lymph % (Auto) [place] % (Auto) [place] # Seg Neutrophils % Seg Neuts % (Manual) Lymphocytes % (Manual) Monocytes % (Manual) Basophils % (Manual) Nucleated RBC % Seg Neutrophils # Seg Neutrophils # Man Lymphocytes # (Manual) Monocytes # (Manual) Eosinophils # (Manual) Basophils # (Manual) PT INR APTT Heparin Anti-Xa Level POC ABG pH POC ABG pCO2 POC ABG pO2 Sodium Potassium Chloride Carbon Dioxide BUN Creatinine Glucose POC Glucose 132 H 134 H 134 H Calcium Phosphorus Magnesium AST Alkaline Phosphatase C-Reactive Protein Total Protein Albumin Lipase Vitamin B12 TSH Urine WBC (Auto) Urine Chloride Urine Total Protein Vancomycin Trough Crossmatch 10/15/16 10/15/16 10/15/16 04:40 04:46 06:21 WBC RBC Hgb Hct MCV RDW Plt Count Lymph % (Auto) [place] % (Auto) [place] # Seg Neutrophils % Seg Neuts % (Manual) Lymphocytes % (Manual) Monocytes % (Manual) Basophils % (Manual) Nucleated RBC % Seg Neutrophils # Seg Neutrophils # Man Lymphocytes # (Manual) Monocytes # (Manual) Eosinophils # (Manual) Basophils # (Manual) PT INR APTT Heparin Anti-Xa Level POC ABG pH POC ABG pCO2 30.7 L POC ABG pO2 108 H Sodium Potassium Chloride 109.0 H Carbon Dioxide 17 L BUN 27 H Creatinine Glucose 124 H POC Glucose 160 H Calcium 7.5 L Phosphorus Magnesium AST 79 H Alkaline Phosphatase C-Reactive Protein Total Protein 5.5 L Albumin 3.0 L Lipase Vitamin B12 TSH Urine WBC (Auto) Urine Chloride Urine Total Protein Vancomycin Trough Crossmatch 10/15/16 10/15/16 10/15/16 07:12 08:01 09:03 WBC RBC Hgb Hct MCV RDW Plt Count Lymph % (Auto) [place] % (Auto) [place] # Seg Neutrophils % Seg Neuts % (Manual) Lymphocytes % (Manual) Monocytes % (Manual) Basophils % (Manual) Nucleated RBC % Seg Neutrophils # Seg Neutrophils # Man Lymphocytes # (Manual) Monocytes # (Manual) Eosinophils # (Manual) Basophils # (Manual) PT INR APTT Heparin Anti-Xa Level POC ABG pH POC ABG pCO2 POC ABG pO2 Sodium Potassium Chloride Carbon Dioxide BUN Creatinine Glucose POC Glucose 179 H 187 H 165 H Calcium Phosphorus Magnesium AST Alkaline Phosphatase C-Reactive Protein Total Protein Albumin Lipase Vitamin B12 TSH Urine WBC (Auto) Urine Chloride Urine Total Protein Vancomycin Trough Crossmatch 10/15/16 10/15/16 10/15/16 10:06 10:06 10:07 WBC 12.1 H RBC 3.01 L Hgb 9.7 L Hct 29.6 L MCV 98 H RDW Plt Count 129 L Lymph % (Auto) [place] % (Auto) [place] # Seg Neutrophils % Seg Neuts % (Manual) Lymphocytes % (Manual) Monocytes % (Manual) Basophils % (Manual) Nucleated RBC % Seg Neutrophils # Seg Neutrophils # Man Lymphocytes # (Manual) Monocytes # (Manual) Eosinophils # (Manual) Basophils # (Manual) PT INR APTT Heparin Anti-Xa Level POC ABG pH POC ABG pCO2 POC ABG pO2 Sodium Potassium 3.2 L D Chloride 109.6 H Carbon Dioxide 18 L BUN 22 H Creatinine Glucose 127 H POC Glucose 147 H Calcium 7.0 L Phosphorus Magnesium AST Alkaline Phosphatase C-Reactive Protein Total Protein Albumin Lipase Vitamin B12 TSH Urine WBC (Auto) Urine Chloride Urine Total Protein Vancomycin Trough Crossmatch 10/15/16 10/15/16 10/15/16 11:05 11:06 11:57 WBC RBC Hgb Hct MCV RDW Plt Count Lymph % (Auto) [place] % (Auto) [place] # Seg Neutrophils % Seg Neuts % (Manual) Lymphocytes % (Manual) Monocytes % (Manual) Basophils % (Manual) Nucleated RBC % Seg Neutrophils # Seg Neutrophils # Man Lymphocytes # (Manual) Monocytes # (Manual) Eosinophils # (Manual) Basophils # (Manual) PT INR APTT Heparin Anti-Xa Level POC ABG pH 7.305 L POC ABG pCO2 POC ABG pO2 Sodium Potassium Chloride Carbon Dioxide BUN Creatinine Glucose POC Glucose 145 H Calcium Phosphorus Magnesium AST Alkaline Phosphatase C-Reactive Protein Total Protein Albumin Lipase Vitamin B12 TSH Urine WBC (Auto) 7.0 H Urine Chloride Urine Total Protein Vancomycin Trough Crossmatch 10/15/16 10/15/16 10/15/16 12:04 13:59 15:24 WBC RBC Hgb Hct MCV RDW Plt Count Lymph % (Auto) [place] % (Auto) [place] # Seg Neutrophils % Seg Neuts % (Manual) Lymphocytes % (Manual) Monocytes % (Manual) Basophils % (Manual) Nucleated RBC % Seg Neutrophils # Seg Neutrophils # Man Lymphocytes # (Manual) Monocytes # (Manual) Eosinophils # (Manual) Basophils # (Manual) PT INR APTT Heparin Anti-Xa Level POC ABG pH POC ABG pCO2 POC ABG pO2 Sodium Potassium Chloride Carbon Dioxide BUN Creatinine Glucose POC Glucose 123 H 147 H 153 H Calcium Phosphorus Magnesium AST Alkaline Phosphatase C-Reactive Protein Total Protein Albumin Lipase Vitamin B12 TSH Urine WBC (Auto) Urine Chloride Urine Total Protein Vancomycin Trough Crossmatch 10/15/16 10/15/16 10/15/16 16:30 17:34 18:30 WBC RBC Hgb Hct MCV RDW Plt Count Lymph % (Auto) [place] % (Auto) [place] # Seg Neutrophils % Seg Neuts % (Manual) Lymphocytes % (Manual) Monocytes % (Manual) Basophils % (Manual) Nucleated RBC % Seg Neutrophils # Seg Neutrophils # Man Lymphocytes # (Manual) Monocytes # (Manual) Eosinophils # (Manual) Basophils # (Manual) PT INR APTT Heparin Anti-Xa Level POC ABG pH POC ABG pCO2 POC ABG pO2 Sodium Potassium Chloride Carbon Dioxide BUN Creatinine Glucose POC Glucose 223 H 236 H 164 H Calcium Phosphorus Magnesium AST Alkaline Phosphatase C-Reactive Protein Total Protein Albumin Lipase Vitamin B12 TSH Urine WBC (Auto) Urine Chloride Urine Total Protein Vancomycin Trough Crossmatch 10/15/16 10/15/16 10/15/16 19:14 20:31 21:23 WBC RBC Hgb Hct MCV RDW Plt Count Lymph % (Auto) [place] % (Auto) [place] # Seg Neutrophils % Seg Neuts % (Manual) Lymphocytes % (Manual) Monocytes % (Manual) Basophils % (Manual) Nucleated RBC % Seg Neutrophils # Seg Neutrophils # Man Lymphocytes # (Manual) Monocytes # (Manual) Eosinophils # (Manual) Basophils # (Manual) PT INR APTT Heparin Anti-Xa Level POC ABG pH POC ABG pCO2 POC ABG pO2 Sodium Potassium Chloride Carbon Dioxide BUN Creatinine Glucose POC Glucose 138 H 158 H 158 H Calcium Phosphorus Magnesium AST Alkaline Phosphatase C-Reactive Protein Total Protein Albumin Lipase Vitamin B12 TSH Urine WBC (Auto) Urine Chloride Urine Total Protein Vancomycin Trough Crossmatch 10/15/16 10/15/16 10/16/16 22:04 22:57 00:11 WBC RBC Hgb Hct MCV RDW Plt Count Lymph % (Auto) [place] % (Auto) [place] # Seg Neutrophils % Seg Neuts % (Manual) Lymphocytes % (Manual) Monocytes % (Manual) Basophils % (Manual) Nucleated RBC % Seg Neutrophils # Seg Neutrophils # Man Lymphocytes # (Manual) Monocytes # (Manual) Eosinophils # (Manual) Basophils # (Manual) PT INR APTT Heparin Anti-Xa Level POC ABG pH POC ABG pCO2 POC ABG pO2 Sodium Potassium Chloride Carbon Dioxide BUN Creatinine Glucose POC Glucose 168 H 213 H 166 H Calcium Phosphorus Magnesium AST Alkaline Phosphatase C-Reactive Protein Total Protein Albumin Lipase Vitamin B12 TSH Urine WBC (Auto) Urine Chloride Urine Total Protein Vancomycin Trough Crossmatch 10/16/16 10/16/16 10/16/16 01:16 02:32 03:38 WBC RBC Hgb Hct MCV RDW Plt Count Lymph % (Auto) [place] % (Auto) [place] # Seg Neutrophils % Seg Neuts % (Manual) Lymphocytes % (Manual) Monocytes % (Manual) Basophils % (Manual) Nucleated RBC % Seg Neutrophils # Seg Neutrophils # Man Lymphocytes # (Manual) Monocytes # (Manual) Eosinophils # (Manual) Basophils # (Manual) PT INR APTT Heparin Anti-Xa Level POC ABG pH POC ABG pCO2 POC ABG pO2 Sodium Potassium Chloride Carbon Dioxide BUN Creatinine Glucose POC Glucose 171 H 164 H 147 H Calcium Phosphorus Magnesium AST Alkaline Phosphatase C-Reactive Protein Total Protein Albumin Lipase Vitamin B12 TSH Urine WBC (Auto) Urine Chloride Urine Total Protein Vancomycin Trough Crossmatch 10/16/16 10/16/16 10/16/16 04:14 04:14 04:49 WBC RBC Hgb Hct MCV RDW Plt Count Lymph % (Auto) [place] % (Auto) [place] # Seg Neutrophils % Seg Neuts % (Manual) Lymphocytes % (Manual) Monocytes % (Manual) Basophils % (Manual) Nucleated RBC % Seg Neutrophils # Seg Neutrophils # Man Lymphocytes # (Manual) Monocytes # (Manual) Eosinophils # (Manual) Basophils # (Manual) PT INR APTT Heparin Anti-Xa Level POC ABG pH POC ABG pCO2 POC ABG pO2 Sodium 147 H Potassium Chloride 110.9 H Carbon Dioxide 19 L BUN Creatinine Glucose 139 H POC Glucose 144 H Calcium 7.3 L Phosphorus 2.3 L Magnesium AST Alkaline Phosphatase C-Reactive Protein Total Protein Albumin Lipase 143 H Vitamin B12 TSH Urine WBC (Auto) Urine Chloride Urine Total Protein Vancomycin Trough Crossmatch 10/16/16 10/16/16 10/16/16 05:03 05:41 05:58 WBC 16.5 H RBC 3.36 L Hgb Hct MCV 98 H RDW 13.1 L Plt Count Lymph % (Auto) 8.5 L [place] % (Auto) 7.6 H [place] # 1.3 H Seg Neutrophils % 83.3 H Seg Neuts % (Manual) Lymphocytes % (Manual) Monocytes % (Manual) Basophils % (Manual) Nucleated RBC % Seg Neutrophils # 13.8 H Seg Neutrophils # Man Lymphocytes # (Manual) Monocytes # (Manual) Eosinophils # (Manual) Basophils # (Manual) PT INR APTT Heparin Anti-Xa Level POC ABG pH POC ABG pCO2 30.7 L POC ABG pO2 128 H Sodium Potassium Chloride Carbon Dioxide BUN Creatinine Glucose POC Glucose 131 H Calcium Phosphorus Magnesium AST Alkaline Phosphatase C-Reactive Protein Total Protein Albumin Lipase Vitamin B12 TSH Urine WBC (Auto) Urine Chloride Urine Total Protein Vancomycin Trough Crossmatch 10/16/16 10/16/16 10/16/16 06:32 09:27 09:35 WBC RBC Hgb Hct MCV RDW Plt Count Lymph % (Auto) [place] % (Auto) [place] # Seg Neutrophils % Seg Neuts % (Manual) Lymphocytes % (Manual) Monocytes % (Manual) Basophils % (Manual) Nucleated RBC % Seg Neutrophils # Seg Neutrophils # Man Lymphocytes # (Manual) Monocytes # (Manual) Eosinophils # (Manual) Basophils # (Manual) PT INR APTT Heparin Anti-Xa Level POC ABG pH POC ABG pCO2 32.8 L POC ABG pO2 137 H Sodium Potassium Chloride Carbon Dioxide BUN Creatinine Glucose POC Glucose 121 H 150 H Calcium Phosphorus Magnesium AST Alkaline Phosphatase C-Reactive Protein Total Protein Albumin Lipase Vitamin B12 TSH Urine WBC (Auto) Urine Chloride Urine Total Protein Vancomycin Trough Crossmatch 10/16/16 10/16/16 10/16/16 10:47 13:27 14:24 WBC RBC Hgb Hct MCV RDW Plt Count Lymph % (Auto) [place] % (Auto) [place] # Seg Neutrophils % Seg Neuts % (Manual) Lymphocytes % (Manual) Monocytes % (Manual) Basophils % (Manual) Nucleated RBC % Seg Neutrophils # Seg Neutrophils # Man Lymphocytes # (Manual) Monocytes # (Manual) Eosinophils # (Manual) Basophils # (Manual) PT INR APTT Heparin Anti-Xa Level POC ABG pH POC ABG pCO2 POC ABG pO2 Sodium Potassium Chloride Carbon Dioxide BUN Creatinine Glucose POC Glucose 184 H 171 H 174 H Calcium Phosphorus Magnesium AST Alkaline Phosphatase C-Reactive Protein Total Protein Albumin Lipase Vitamin B12 TSH Urine WBC (Auto) Urine Chloride Urine Total Protein Vancomycin Trough Crossmatch 10/16/16 10/16/16 10/16/16 15:48 16:26 18:17 WBC RBC Hgb Hct MCV RDW Plt Count Lymph % (Auto) [place] % (Auto) [place] # Seg Neutrophils % Seg Neuts % (Manual) Lymphocytes % (Manual) Monocytes % (Manual) Basophils % (Manual) Nucleated RBC % Seg Neutrophils # Seg Neutrophils # Man Lymphocytes # (Manual) Monocytes # (Manual) Eosinophils # (Manual) Basophils # (Manual) PT INR APTT Heparin Anti-Xa Level POC ABG pH POC ABG pCO2 POC ABG pO2 Sodium Potassium Chloride Carbon Dioxide BUN Creatinine Glucose POC Glucose 205 H 204 H 234 H Calcium Phosphorus Magnesium AST Alkaline Phosphatase C-Reactive Protein Total Protein Albumin Lipase Vitamin B12 TSH Urine WBC (Auto) Urine Chloride Urine Total Protein Vancomycin Trough Crossmatch 10/16/16 10/16/16 10/16/16 19:40 20:33 21:36 WBC RBC Hgb Hct MCV RDW Plt Count Lymph % (Auto) [place] % (Auto) [place] # Seg Neutrophils % Seg Neuts % (Manual) Lymphocytes % (Manual) Monocytes % (Manual) Basophils % (Manual) Nucleated RBC % Seg Neutrophils # Seg Neutrophils # Man Lymphocytes # (Manual) Monocytes # (Manual) Eosinophils # (Manual) Basophils # (Manual) PT INR APTT Heparin Anti-Xa Level POC ABG pH POC ABG pCO2 POC ABG pO2 Sodium Potassium Chloride Carbon Dioxide BUN Creatinine Glucose POC Glucose 167 H 153 H 158 H Calcium Phosphorus Magnesium AST Alkaline Phosphatase C-Reactive Protein Total Protein Albumin Lipase Vitamin B12 TSH Urine WBC (Auto) Urine Chloride Urine Total Protein Vancomycin Trough Crossmatch 10/16/16 10/16/16 10/17/16 22:54 23:48 00:47 WBC RBC Hgb Hct MCV RDW Plt Count Lymph % (Auto) [place] % (Auto) [place] # Seg Neutrophils % Seg Neuts % (Manual) Lymphocytes % (Manual) Monocytes % (Manual) Basophils % (Manual) Nucleated RBC % Seg Neutrophils # Seg Neutrophils # Man Lymphocytes # (Manual) Monocytes # (Manual) Eosinophils # (Manual) Basophils # (Manual) PT INR APTT Heparin Anti-Xa Level POC ABG pH POC ABG pCO2 POC ABG pO2 Sodium Potassium Chloride Carbon Dioxide BUN Creatinine Glucose POC Glucose 180 H 207 H 196 H Calcium Phosphorus Magnesium AST Alkaline Phosphatase C-Reactive Protein Total Protein Albumin Lipase Vitamin B12 TSH Urine WBC (Auto) Urine Chloride Urine Total Protein Vancomycin Trough Crossmatch 10/17/16 10/17/16 10/17/16 01:57 02:49 03:50 WBC RBC Hgb Hct MCV RDW Plt Count Lymph % (Auto) [place] % (Auto) [place] # Seg Neutrophils % Seg Neuts % (Manual) Lymphocytes % (Manual) Monocytes % (Manual) Basophils % (Manual) Nucleated RBC % Seg Neutrophils # Seg Neutrophils # Man Lymphocytes # (Manual) Monocytes # (Manual) Eosinophils # (Manual) Basophils # (Manual) PT INR APTT Heparin Anti-Xa Level POC ABG pH POC ABG pCO2 POC ABG pO2 Sodium Potassium Chloride Carbon Dioxide BUN Creatinine Glucose POC Glucose 180 H 151 H 106 H Calcium Phosphorus Magnesium AST Alkaline Phosphatase C-Reactive Protein Total Protein Albumin Lipase Vitamin B12 TSH Urine WBC (Auto) Urine Chloride Urine Total Protein Vancomycin Trough Crossmatch 10/17/16 10/17/16 10/17/16 04:59 06:03 06:35 WBC RBC Hgb Hct MCV RDW Plt Count Lymph % (Auto) [place] % (Auto) [place] # Seg Neutrophils % Seg Neuts % (Manual) Lymphocytes % (Manual) Monocytes % (Manual) Basophils % (Manual) Nucleated RBC % Seg Neutrophils # Seg Neutrophils # Man Lymphocytes # (Manual) Monocytes # (Manual) Eosinophils # (Manual) Basophils # (Manual) PT INR APTT Heparin Anti-Xa Level POC ABG pH 7.453 H POC ABG pCO2 30.1 L POC ABG pO2 111 H Sodium Potassium Chloride Carbon Dioxide BUN Creatinine Glucose POC Glucose 145 H 157 H Calcium Phosphorus Magnesium AST Alkaline Phosphatase C-Reactive Protein Total Protein Albumin Lipase Vitamin B12 TSH Urine WBC (Auto) Urine Chloride Urine Total Protein Vancomycin Trough Crossmatch 10/17/16 10/17/16 10/17/16 07:08 07:11 08:01 WBC RBC Hgb Hct MCV RDW Plt Count Lymph % (Auto) [place] % (Auto) [place] # Seg Neutrophils % Seg Neuts % (Manual) Lymphocytes % (Manual) Monocytes % (Manual) Basophils % (Manual) Nucleated RBC % Seg Neutrophils # Seg Neutrophils # Man Lymphocytes # (Manual) Monocytes # (Manual) Eosinophils # (Manual) Basophils # (Manual) PT INR APTT Heparin Anti-Xa Level POC ABG pH POC ABG pCO2 POC ABG pO2 Sodium 147 H Potassium Chloride 113.8 H Carbon Dioxide 19 L BUN Creatinine Glucose 136 H POC Glucose 136 H 152 H Calcium 7.7 L Phosphorus Magnesium AST Alkaline Phosphatase C-Reactive Protein Total Protein Albumin Lipase Vitamin B12 TSH Urine WBC (Auto) Urine Chloride Urine Total Protein Vancomycin Trough Crossmatch 10/17/16 10/17/16 10/17/16 08:23 09:17 09:53 WBC 18.1 H RBC 3.01 L Hgb 9.7 L Hct 29.4 L MCV 98 H RDW Plt Count 116 L Lymph % (Auto) [place] % (Auto) [place] # Seg Neutrophils % Seg Neuts % (Manual) 77.0 H Lymphocytes % (Manual) 4.0 L Monocytes % (Manual) 12.0 H Basophils % (Manual) Nucleated RBC % Seg Neutrophils # Seg Neutrophils # Man 13.9 H Lymphocytes # (Manual) 0.7 L Monocytes # (Manual) 2.2 H Eosinophils # (Manual) Basophils # (Manual) PT INR APTT Heparin Anti-Xa Level POC ABG pH POC ABG pCO2 POC ABG pO2 Sodium Potassium Chloride Carbon Dioxide BUN Creatinine Glucose POC Glucose 148 H 137 H Calcium Phosphorus Magnesium AST Alkaline Phosphatase C-Reactive Protein Total Protein Albumin Lipase Vitamin B12 TSH Urine WBC (Auto) Urine Chloride Urine Total Protein Vancomycin Trough Crossmatch 10/17/16 10/17/16 10/17/16 11:43 16:07 17:42 WBC RBC Hgb Hct MCV RDW Plt Count Lymph % (Auto) [place] % (Auto) [place] # Seg Neutrophils % Seg Neuts % (Manual) Lymphocytes % (Manual) Monocytes % (Manual) Basophils % (Manual) Nucleated RBC % Seg Neutrophils # Seg Neutrophils # Man Lymphocytes # (Manual) Monocytes # (Manual) Eosinophils # (Manual) Basophils # (Manual) PT 16.4 H INR 1.33 H APTT 38.8 H Heparin Anti-Xa Level POC ABG pH POC ABG pCO2 POC ABG pO2 Sodium Potassium Chloride Carbon Dioxide BUN Creatinine Glucose POC Glucose 179 H 153 H Calcium Phosphorus Magnesium AST Alkaline Phosphatase C-Reactive Protein Total Protein Albumin Lipase Vitamin B12 TSH Urine WBC (Auto) Urine Chloride Urine Total Protein Vancomycin Trough Crossmatch 10/17/16 10/18/16 10/18/16 22:54 04:37 05:39 WBC RBC Hgb Hct MCV RDW Plt Count Lymph % (Auto) [place] % (Auto) [place] # Seg Neutrophils % Seg Neuts % (Manual) Lymphocytes % (Manual) Monocytes % (Manual) Basophils % (Manual) Nucleated RBC % Seg Neutrophils # Seg Neutrophils # Man Lymphocytes # (Manual) Monocytes # (Manual) Eosinophils # (Manual) Basophils # (Manual) PT INR APTT Heparin Anti-Xa Level 0.27 L POC ABG pH 7.454 H POC ABG pCO2 30.8 L POC ABG pO2 115 H Sodium Potassium Chloride Carbon Dioxide BUN Creatinine Glucose POC Glucose 69 L Calcium Phosphorus Magnesium AST Alkaline Phosphatase C-Reactive Protein Total Protein Albumin Lipase Vitamin B12 TSH Urine WBC (Auto) Urine Chloride Urine Total Protein Vancomycin Trough Crossmatch 10/18/16 10/18/16 10/18/16 06:46 06:46 06:46 WBC 20.5 H RBC 2.62 L Hgb 8.4 L Hct 26.0 L MCV 100 H RDW Plt Count Lymph % (Auto) [place] % (Auto) [place] # Seg Neutrophils % Seg Neuts % (Manual) 75.0 H Lymphocytes % (Manual) 9.0 L Monocytes % (Manual) 14.0 H Basophils % (Manual) Nucleated RBC % Seg Neutrophils # Seg Neutrophils # Man 15.4 H Lymphocytes # (Manual) Monocytes # (Manual) 2.9 H Eosinophils # (Manual) Basophils # (Manual) PT INR APTT Heparin Anti-Xa Level POC ABG pH POC ABG pCO2 POC ABG pO2 Sodium Potassium Chloride 110.6 H Carbon Dioxide BUN Creatinine 1.3 H Glucose 153 H POC Glucose Calcium 8.0 L Phosphorus Magnesium 1.6 L AST Alkaline Phosphatase C-Reactive Protein Total Protein Albumin Lipase Vitamin B12 TSH Urine WBC (Auto) Urine Chloride Urine Total Protein Vancomycin Trough Crossmatch 10/18/16 10/18/16 10/18/16 07:30 11:37 17:51 WBC RBC Hgb Hct MCV RDW Plt Count Lymph % (Auto) [place] % (Auto) [place] # Seg Neutrophils % Seg Neuts % (Manual) Lymphocytes % (Manual) Monocytes % (Manual) Basophils % (Manual) Nucleated RBC % Seg Neutrophils # Seg Neutrophils # Man Lymphocytes # (Manual) Monocytes # (Manual) Eosinophils # (Manual) Basophils # (Manual) PT INR APTT Heparin Anti-Xa Level POC ABG pH POC ABG pCO2 POC ABG pO2 Sodium Potassium Chloride Carbon Dioxide BUN Creatinine Glucose POC Glucose 162 H 156 H 164 H Calcium Phosphorus Magnesium AST Alkaline Phosphatase C-Reactive Protein Total Protein Albumin Lipase Vitamin B12 TSH Urine WBC (Auto) Urine Chloride Urine Total Protein Vancomycin Trough Crossmatch 10/18/16 10/19/16 10/19/16 23:44 03:59 05:13 WBC 18.2 H RBC 2.76 L Hgb 9.0 L Hct 27.7 L MCV 100 H RDW Plt Count Lymph % (Auto) [place] % (Auto) [place] # Seg Neutrophils % Seg Neuts % (Manual) 76.0 H Lymphocytes % (Manual) 10.0 L Monocytes % (Manual) Basophils % (Manual) Nucleated RBC % Seg Neutrophils # Seg Neutrophils # Man 13.8 H Lymphocytes # (Manual) Monocytes # (Manual) Eosinophils # (Manual) Basophils # (Manual) PT INR APTT Heparin Anti-Xa Level POC ABG pH POC ABG pCO2 32.2 L POC ABG pO2 128 H Sodium Potassium Chloride Carbon Dioxide BUN Creatinine Glucose POC Glucose 278 H Calcium Phosphorus Magnesium AST Alkaline Phosphatase C-Reactive Protein Total Protein Albumin Lipase Vitamin B12 TSH Urine WBC (Auto) Urine Chloride Urine Total Protein Vancomycin Trough Crossmatch 10/19/16 10/19/16 10/19/16 06:01 06:30 12:20 WBC RBC Hgb Hct MCV RDW Plt Count Lymph % (Auto) [place] % (Auto) [place] # Seg Neutrophils % Seg Neuts % (Manual) Lymphocytes % (Manual) Monocytes % (Manual) Basophils % (Manual) Nucleated RBC % Seg Neutrophils # Seg Neutrophils # Man Lymphocytes # (Manual) Monocytes # (Manual) Eosinophils # (Manual) Basophils # (Manual) PT INR APTT Heparin Anti-Xa Level POC ABG pH POC ABG pCO2 POC ABG pO2 Sodium Potassium Chloride Carbon Dioxide 18 L BUN Creatinine 1.3 H Glucose 262 H POC Glucose 261 H 349 H Calcium 7.7 L Phosphorus 4.8 H D Magnesium AST Alkaline Phosphatase C-Reactive Protein Total Protein Albumin Lipase Vitamin B12 TSH Urine WBC (Auto) Urine Chloride Urine Total Protein Vancomycin Trough Crossmatch 10/19/16 10/20/16 10/20/16 16:48 00:17 05:20 WBC 22.5 H RBC 2.80 L Hgb 8.9 L Hct 28.3 L MCV 101 H RDW Plt Count Lymph % (Auto) [place] % (Auto) [place] # Seg Neutrophils % Seg Neuts % (Manual) Lymphocytes % (Manual) 10.0 L Monocytes % (Manual) Basophils % (Manual) Nucleated RBC % Seg Neutrophils # Seg Neutrophils # Man 13.3 H Lymphocytes # (Manual) Monocytes # (Manual) 1.1 H Eosinophils # (Manual) 0.7 H Basophils # (Manual) PT INR APTT Heparin Anti-Xa Level POC ABG pH POC ABG pCO2 POC ABG pO2 Sodium Potassium Chloride Carbon Dioxide BUN Creatinine Glucose POC Glucose 248 H 346 H Calcium Phosphorus Magnesium AST Alkaline Phosphatase C-Reactive Protein Total Protein Albumin Lipase Vitamin B12 TSH Urine WBC (Auto) Urine Chloride Urine Total Protein Vancomycin Trough Crossmatch 10/20/16 10/20/16 10/20/16 05:20 05:20 06:05 WBC RBC Hgb Hct MCV RDW Plt Count Lymph % (Auto) [place] % (Auto) [place] # Seg Neutrophils % Seg Neuts % (Manual) Lymphocytes % (Manual) Monocytes % (Manual) Basophils % (Manual) Nucleated RBC % Seg Neutrophils # Seg Neutrophils # Man Lymphocytes # (Manual) Monocytes # (Manual) Eosinophils # (Manual) Basophils # (Manual) PT INR APTT Heparin Anti-Xa Level 0.20 L POC ABG pH POC ABG pCO2 POC ABG pO2 Sodium Potassium Chloride Carbon Dioxide BUN 20 H Creatinine Glucose 374 H POC Glucose 337 H Calcium 8.3 L Phosphorus Magnesium AST Alkaline Phosphatase C-Reactive Protein Total Protein Albumin Lipase Vitamin B12 TSH Urine WBC (Auto) Urine Chloride Urine Total Protein Vancomycin Trough Crossmatch 10/20/16 10/20/16 10/20/16 11:49 13:59 17:56 WBC RBC Hgb Hct MCV RDW Plt Count Lymph % (Auto) [place] % (Auto) [place] # Seg Neutrophils % Seg Neuts % (Manual) Lymphocytes % (Manual) Monocytes % (Manual) Basophils % (Manual) Nucleated RBC % Seg Neutrophils # Seg Neutrophils # Man Lymphocytes # (Manual) Monocytes # (Manual) Eosinophils # (Manual) Basophils # (Manual) PT INR APTT Heparin Anti-Xa Level 2.00 H POC ABG pH POC ABG pCO2 POC ABG pO2 Sodium Potassium Chloride Carbon Dioxide BUN Creatinine Glucose POC Glucose 305 H 362 H Calcium Phosphorus Magnesium AST Alkaline Phosphatase C-Reactive Protein Total Protein Albumin Lipase Vitamin B12 TSH Urine WBC (Auto) Urine Chloride Urine Total Protein Vancomycin Trough Crossmatch 10/20/16 10/21/16 10/21/16 23:52 05:00 05:49 WBC 22.9 H RBC 2.49 L Hgb 7.7 L Hct 25.6 L MCV 103 H RDW Plt Count Lymph % (Auto) [place] % (Auto) [place] # Seg Neutrophils % Seg Neuts % (Manual) 94.0 H Lymphocytes % (Manual) 1.0 L Monocytes % (Manual) Basophils % (Manual) Nucleated RBC % Seg Neutrophils # Seg Neutrophils # Man 21.5 H Lymphocytes # (Manual) 0.2 L Monocytes # (Manual) 1.1 H Eosinophils # (Manual) Basophils # (Manual) PT INR APTT Heparin Anti-Xa Level POC ABG pH POC ABG pCO2 POC ABG pO2 Sodium Potassium Chloride Carbon Dioxide BUN Creatinine Glucose POC Glucose 252 H 180 H Calcium Phosphorus Magnesium AST Alkaline Phosphatase C-Reactive Protein Total Protein Albumin Lipase Vitamin B12 TSH Urine WBC (Auto) Urine Chloride Urine Total Protein Vancomycin Trough Crossmatch 10/21/16 10/21/16 10/21/16 11:47 11:49 14:10 WBC RBC Hgb Hct MCV RDW Plt Count Lymph % (Auto) [place] % (Auto) [place] # Seg Neutrophils % Seg Neuts % (Manual) Lymphocytes % (Manual) Monocytes % (Manual) Basophils % (Manual) Nucleated RBC % Seg Neutrophils # Seg Neutrophils # Man Lymphocytes # (Manual) Monocytes # (Manual) Eosinophils # (Manual) Basophils # (Manual) PT INR APTT Heparin Anti-Xa Level POC ABG pH POC ABG pCO2 POC ABG pO2 Sodium Potassium Chloride Carbon Dioxide BUN Creatinine Glucose POC Glucose 50 L 56 L 140 H Calcium Phosphorus Magnesium AST Alkaline Phosphatase C-Reactive Protein Total Protein Albumin Lipase Vitamin B12 TSH Urine WBC (Auto) Urine Chloride Urine Total Protein Vancomycin Trough Crossmatch 10/21/16 10/21/16 10/22/16 18:24 Unknown 00:07 WBC RBC Hgb Hct MCV RDW Plt Count Lymph % (Auto) [place] % (Auto) [place] # Seg Neutrophils % Seg Neuts % (Manual) Lymphocytes % (Manual) Monocytes % (Manual) Basophils % (Manual) Nucleated RBC % Seg Neutrophils # Seg Neutrophils # Man Lymphocytes # (Manual) Monocytes # (Manual) Eosinophils # (Manual) Basophils # (Manual) PT INR APTT Heparin Anti-Xa Level POC ABG pH POC ABG pCO2 POC ABG pO2 Sodium 150 H Potassium 3.1 L Chloride 112.4 H Carbon Dioxide BUN 25 H Creatinine 1.4 H Glucose POC Glucose 175 H 218 H Calcium 8.0 L Phosphorus Magnesium AST Alkaline Phosphatase C-Reactive Protein Total Protein Albumin Lipase Vitamin B12 TSH Urine WBC (Auto) Urine Chloride Urine Total Protein Vancomycin Trough Crossmatch 10/22/16 10/22/16 10/22/16 04:20 04:20 10:25 WBC 20.8 H RBC 2.37 L Hgb 7.5 L Hct 23.9 L MCV 101 H RDW Plt Count Lymph % (Auto) [place] % (Auto) [place] # Seg Neutrophils % Seg Neuts % (Manual) 89.0 H Lymphocytes % (Manual) 7.0 L Monocytes % (Manual) Basophils % (Manual) Nucleated RBC % Seg Neutrophils # Seg Neutrophils # Man 18.5 H Lymphocytes # (Manual) Monocytes # (Manual) Eosinophils # (Manual) Basophils # (Manual) 0.2 H PT INR APTT Heparin Anti-Xa Level POC ABG pH POC ABG pCO2 POC ABG pO2 Sodium 148 H Potassium 2.9 L* Chloride 109.4 H Carbon Dioxide BUN 26 H Creatinine Glucose 140 H POC Glucose Calcium 7.5 L Phosphorus Magnesium AST Alkaline Phosphatase C-Reactive Protein Total Protein Albumin Lipase Vitamin B12 976.8 H TSH Urine WBC (Auto) Urine Chloride Urine Total Protein Vancomycin Trough Crossmatch 10/22/16 10/22/16 10/22/16 10:25 14:50 18:16 WBC RBC Hgb Hct MCV RDW Plt Count Lymph % (Auto) [place] % (Auto) [place] # Seg Neutrophils % Seg Neuts % (Manual) Lymphocytes % (Manual) Monocytes % (Manual) Basophils % (Manual) Nucleated RBC % Seg Neutrophils # Seg Neutrophils # Man Lymphocytes # (Manual) Monocytes # (Manual) Eosinophils # (Manual) Basophils # (Manual) PT INR APTT Heparin Anti-Xa Level POC ABG pH POC ABG pCO2 POC ABG pO2 Sodium Potassium Chloride Carbon Dioxide BUN Creatinine Glucose POC Glucose 193 H Calcium Phosphorus Magnesium AST Alkaline Phosphatase C-Reactive Protein Total Protein Albumin Lipase Vitamin B12 TSH 0.143 L 0.162 L Urine WBC (Auto) Urine Chloride Urine Total Protein Vancomycin Trough Crossmatch 10/22/16 10/22/16 10/22/16 20:00 20:00 20:00 WBC 24.1 H RBC 2.58 L Hgb 8.2 L Hct 26.4 L MCV 102 H RDW Plt Count Lymph % (Auto) [place] % (Auto) [place] # Seg Neutrophils % Seg Neuts % (Manual) 74.0 H Lymphocytes % (Manual) 7.0 L Monocytes % (Manual) Basophils % (Manual) Nucleated RBC % Seg Neutrophils # Seg Neutrophils # Man 17.8 H Lymphocytes # (Manual) Monocytes # (Manual) Eosinophils # (Manual) Basophils # (Manual) PT INR APTT Heparin Anti-Xa Level 1.92 H POC ABG pH POC ABG pCO2 POC ABG pO2 Sodium Potassium Chloride Carbon Dioxide BUN Creatinine Glucose POC Glucose Calcium Phosphorus Magnesium AST Alkaline Phosphatase C-Reactive Protein Total Protein Albumin Lipase Vitamin B12 TSH Urine WBC (Auto) Urine Chloride Urine Total Protein Vancomycin Trough Crossmatch See Detail 10/23/16 10/23/16 10/23/16 00:21 06:09 12:07 WBC RBC Hgb Hct MCV RDW Plt Count Lymph % (Auto) [place] % (Auto) [place] # Seg Neutrophils % Seg Neuts % (Manual) Lymphocytes % (Manual) Monocytes % (Manual) Basophils % (Manual) Nucleated RBC % Seg Neutrophils # Seg Neutrophils # Man Lymphocytes # (Manual) Monocytes # (Manual) Eosinophils # (Manual) Basophils # (Manual) PT INR APTT Heparin Anti-Xa Level POC ABG pH POC ABG pCO2 POC ABG pO2 Sodium Potassium Chloride Carbon Dioxide BUN Creatinine Glucose POC Glucose 283 H 241 H 340 H Calcium Phosphorus Magnesium AST Alkaline Phosphatase C-Reactive Protein Total Protein Albumin Lipase Vitamin B12 TSH Urine WBC (Auto) Urine Chloride Urine Total Protein Vancomycin Trough Crossmatch 10/23/16 10/23/16 10/23/16 14:01 16:00 17:59 WBC RBC Hgb Hct MCV RDW Plt Count Lymph % (Auto) [place] % (Auto) [place] # Seg Neutrophils % Seg Neuts % (Manual) Lymphocytes % (Manual) Monocytes % (Manual) Basophils % (Manual) Nucleated RBC % Seg Neutrophils # Seg Neutrophils # Man Lymphocytes # (Manual) Monocytes # (Manual) Eosinophils # (Manual) Basophils # (Manual) PT INR APTT Heparin Anti-Xa Level 0.19 L POC ABG pH POC ABG pCO2 32.4 L POC ABG pO2 Sodium Potassium Chloride Carbon Dioxide BUN Creatinine Glucose POC Glucose 245 H Calcium Phosphorus Magnesium AST Alkaline Phosphatase C-Reactive Protein Total Protein Albumin Lipase Vitamin B12 TSH Urine WBC (Auto) Urine Chloride Urine Total Protein Vancomycin Trough Crossmatch 10/23/16 10/23/16 10/23/16 22:55 Unknown Unknown WBC 22.6 H RBC 3.26 L Hgb Hct MCV RDW 17.1 H Plt Count Lymph % (Auto) [place] % (Auto) [place] # Seg Neutrophils % Seg Neuts % (Manual) Lymphocytes % (Manual) 11.0 L Monocytes % (Manual) Basophils % (Manual) Nucleated RBC % Seg Neutrophils # Seg Neutrophils # Man 14.0 H Lymphocytes # (Manual) Monocytes # (Manual) Eosinophils # (Manual) Basophils # (Manual) PT INR APTT Heparin Anti-Xa Level 0.17 L 0.15 L POC ABG pH POC ABG pCO2 POC ABG pO2 Sodium Potassium Chloride Carbon Dioxide BUN Creatinine Glucose POC Glucose Calcium Phosphorus Magnesium AST Alkaline Phosphatase C-Reactive Protein Total Protein Albumin Lipase Vitamin B12 TSH Urine WBC (Auto) Urine Chloride Urine Total Protein Vancomycin Trough Crossmatch 10/23/16 10/24/16 10/24/16 Unknown 00:05 05:30 WBC RBC Hgb Hct MCV RDW Plt Count Lymph % (Auto) [place] % (Auto) [place] # Seg Neutrophils % Seg Neuts % (Manual) Lymphocytes % (Manual) Monocytes % (Manual) Basophils % (Manual) Nucleated RBC % Seg Neutrophils # Seg Neutrophils # Man Lymphocytes # (Manual) Monocytes # (Manual) Eosinophils # (Manual) Basophils # (Manual) PT INR APTT Heparin Anti-Xa Level 0.13 L POC ABG pH POC ABG pCO2 POC ABG pO2 Sodium Potassium Chloride 111.2 H Carbon Dioxide 20 L BUN 25 H Creatinine Glucose 227 H POC Glucose 118 H Calcium 7.1 L Phosphorus Magnesium AST Alkaline Phosphatase C-Reactive Protein Total Protein Albumin Lipase Vitamin B12 TSH Urine WBC (Auto) Urine Chloride Urine Total Protein Vancomycin Trough Crossmatch 10/24/16 10/24/16 10/24/16 11:00 11:00 12:06 WBC 17.6 H RBC 2.92 L Hgb 9.2 L Hct 28.3 L MCV RDW 16.9 H Plt Count Lymph % (Auto) [place] % (Auto) [place] # Seg Neutrophils % Seg Neuts % (Manual) Lymphocytes % (Manual) Monocytes % (Manual) Basophils % (Manual) Nucleated RBC % Seg Neutrophils # Seg Neutrophils # Man Lymphocytes # (Manual) Monocytes # (Manual) Eosinophils # (Manual) Basophils # (Manual) PT INR APTT Heparin Anti-Xa Level 0.27 L POC ABG pH POC ABG pCO2 POC ABG pO2 Sodium Potassium Chloride Carbon Dioxide BUN Creatinine Glucose POC Glucose 166 H Calcium Phosphorus Magnesium AST Alkaline Phosphatase C-Reactive Protein Total Protein Albumin Lipase Vitamin B12 TSH Urine WBC (Auto) Urine Chloride Urine Total Protein Vancomycin Trough Crossmatch 10/24/16 10/25/16 10/25/16 12:27 00:49 03:30 WBC RBC Hgb 8.8 L Hct 28.1 L MCV RDW Plt Count Lymph % (Auto) [place] % (Auto) [place] # Seg Neutrophils % Seg Neuts % (Manual) Lymphocytes % (Manual) Monocytes % (Manual) Basophils % (Manual) Nucleated RBC % Seg Neutrophils # Seg Neutrophils # Man Lymphocytes # (Manual) Monocytes # (Manual) Eosinophils # (Manual) Basophils # (Manual) PT INR APTT Heparin Anti-Xa Level POC ABG pH POC ABG pCO2 33.9 L POC ABG pO2 Sodium Potassium Chloride Carbon Dioxide BUN Creatinine Glucose POC Glucose 121 H Calcium Phosphorus Magnesium AST Alkaline Phosphatase C-Reactive Protein Total Protein Albumin Lipase Vitamin B12 TSH Urine WBC (Auto) Urine Chloride Urine Total Protein Vancomycin Trough Crossmatch 10/25/16 10/25/16 10/25/16 09:49 12:10 19:25 WBC 21.1 H RBC 3.02 L Hgb 9.3 L Hct 28.9 L MCV RDW 16.3 H Plt Count Lymph % (Auto) [place] % (Auto) [place] # Seg Neutrophils % Seg Neuts % (Manual) 81.0 H Lymphocytes % (Manual) 9.0 L Monocytes % (Manual) Basophils % (Manual) Nucleated RBC % Seg Neutrophils # Seg Neutrophils # Man 17.1 H Lymphocytes # (Manual) Monocytes # (Manual) Eosinophils # (Manual) Basophils # (Manual) PT INR APTT Heparin Anti-Xa Level POC ABG pH POC ABG pCO2 POC ABG pO2 Sodium Potassium Chloride Carbon Dioxide BUN Creatinine Glucose POC Glucose 158 H 151 H Calcium Phosphorus Magnesium AST Alkaline Phosphatase C-Reactive Protein Total Protein Albumin Lipase Vitamin B12 TSH Urine WBC (Auto) Urine Chloride Urine Total Protein Vancomycin Trough Crossmatch 10/26/16 10/26/16 10/26/16 00:20 01:09 05:02 WBC 22.2 H RBC 2.89 L Hgb 8.7 L Hct 27.8 L MCV RDW 16.4 H Plt Count Lymph % (Auto) [place] % (Auto) [place] # Seg Neutrophils % Seg Neuts % (Manual) Lymphocytes % (Manual) Monocytes % (Manual) Basophils % (Manual) Nucleated RBC % Seg Neutrophils # Seg Neutrophils # Man Lymphocytes # (Manual) Monocytes # (Manual) Eosinophils # (Manual) Basophils # (Manual) PT INR APTT Heparin Anti-Xa Level POC ABG pH POC ABG pCO2 POC ABG pO2 Sodium Potassium Chloride Carbon Dioxide BUN Creatinine Glucose POC Glucose 44 L 112 H Calcium Phosphorus Magnesium AST Alkaline Phosphatase C-Reactive Protein Total Protein Albumin Lipase Vitamin B12 TSH Urine WBC (Auto) Urine Chloride Urine Total Protein Vancomycin Trough Crossmatch 10/26/16 10/26/16 10/26/16 05:02 12:11 12:14 WBC RBC Hgb Hct MCV RDW Plt Count Lymph % (Auto) [place] % (Auto) [place] # Seg Neutrophils % Seg Neuts % (Manual) Lymphocytes % (Manual) Monocytes % (Manual) Basophils % (Manual) Nucleated RBC % Seg Neutrophils # Seg Neutrophils # Man Lymphocytes # (Manual) Monocytes # (Manual) Eosinophils # (Manual) Basophils # (Manual) PT INR APTT Heparin Anti-Xa Level POC ABG pH POC ABG pCO2 32.0 L POC ABG pO2 33 L Sodium Potassium 3.2 L D Chloride Carbon Dioxide 20 L BUN 24 H Creatinine Glucose 104 H POC Glucose 194 H Calcium 7.7 L Phosphorus Magnesium AST Alkaline Phosphatase C-Reactive Protein Total Protein Albumin Lipase Vitamin B12 TSH Urine WBC (Auto) Urine Chloride Urine Total Protein Vancomycin Trough Crossmatch 10/26/16 10/26/16 10/27/16 15:28 17:23 00:04 WBC RBC Hgb Hct MCV RDW Plt Count Lymph % (Auto) [place] % (Auto) [place] # Seg Neutrophils % Seg Neuts % (Manual) Lymphocytes % (Manual) Monocytes % (Manual) Basophils % (Manual) Nucleated RBC % Seg Neutrophils # Seg Neutrophils # Man Lymphocytes # (Manual) Monocytes # (Manual) Eosinophils # (Manual) Basophils # (Manual) PT INR APTT Heparin Anti-Xa Level POC ABG pH POC ABG pCO2 33.7 L POC ABG pO2 Sodium Potassium Chloride Carbon Dioxide BUN Creatinine Glucose POC Glucose 181 H 230 H Calcium Phosphorus Magnesium AST Alkaline Phosphatase C-Reactive Protein Total Protein Albumin Lipase Vitamin B12 TSH Urine WBC (Auto) Urine Chloride Urine Total Protein Vancomycin Trough Crossmatch 10/27/16 10/27/16 10/27/16 05:15 05:15 05:38 WBC 25.5 H RBC 3.07 L Hgb 9.4 L Hct 30.1 L MCV 98 H RDW 16.4 H Plt Count 527 H Lymph % (Auto) [place] % (Auto) [place] # Seg Neutrophils % Seg Neuts % (Manual) Lymphocytes % (Manual) Monocytes % (Manual) Basophils % (Manual) Nucleated RBC % Seg Neutrophils # Seg Neutrophils # Man Lymphocytes # (Manual) Monocytes # (Manual) Eosinophils # (Manual) Basophils # (Manual) PT INR APTT Heparin Anti-Xa Level POC ABG pH POC ABG pCO2 POC ABG pO2 Sodium Potassium Chloride Carbon Dioxide 19 L BUN 23 H Creatinine Glucose 160 H POC Glucose 168 H Calcium 8.0 L Phosphorus Magnesium AST Alkaline Phosphatase C-Reactive Protein Total Protein Albumin Lipase Vitamin B12 TSH Urine WBC (Auto) Urine Chloride Urine Total Protein Vancomycin Trough Crossmatch 10/27/16 10/27/16 10/27/16 11:59 18:35 23:48 WBC RBC Hgb Hct MCV RDW Plt Count Lymph % (Auto) [place] % (Auto) [place] # Seg Neutrophils % Seg Neuts % (Manual) Lymphocytes % (Manual) Monocytes % (Manual) Basophils % (Manual) Nucleated RBC % Seg Neutrophils # Seg Neutrophils # Man Lymphocytes # (Manual) Monocytes # (Manual) Eosinophils # (Manual) Basophils # (Manual) PT INR APTT Heparin Anti-Xa Level POC ABG pH POC ABG pCO2 POC ABG pO2 Sodium Potassium Chloride Carbon Dioxide BUN Creatinine Glucose POC Glucose 197 H 318 H 316 H Calcium Phosphorus Magnesium AST Alkaline Phosphatase C-Reactive Protein Total Protein Albumin Lipase Vitamin B12 TSH Urine WBC (Auto) Urine Chloride Urine Total Protein Vancomycin Trough Crossmatch 10/28/16 10/28/16 10/28/16 03:13 04:10 04:10 WBC 18.8 H RBC 2.64 L Hgb 8.1 L Hct 26.1 L MCV 99 H RDW 16.2 H Plt Count 544 H Lymph % (Auto) [place] % (Auto) [place] # Seg Neutrophils % Seg Neuts % (Manual) Lymphocytes % (Manual) Monocytes % (Manual) Basophils % (Manual) Nucleated RBC % Seg Neutrophils # Seg Neutrophils # Man Lymphocytes # (Manual) Monocytes # (Manual) Eosinophils # (Manual) Basophils # (Manual) PT INR APTT Heparin Anti-Xa Level POC ABG pH POC ABG pCO2 POC ABG pO2 Sodium Potassium Chloride Carbon Dioxide 21 L BUN 24 H Creatinine Glucose 302 H POC Glucose 304 H Calcium 7.7 L Phosphorus Magnesium AST Alkaline Phosphatase C-Reactive Protein Total Protein Albumin Lipase Vitamin B12 TSH Urine WBC (Auto) Urine Chloride Urine Total Protein Vancomycin Trough Crossmatch 10/28/16 10/28/16 10/28/16 04:10 12:36 18:27 WBC RBC Hgb Hct MCV RDW Plt Count Lymph % (Auto) [place] % (Auto) [place] # Seg Neutrophils % Seg Neuts % (Manual) Lymphocytes % (Manual) Monocytes % (Manual) Basophils % (Manual) Nucleated RBC % Seg Neutrophils # Seg Neutrophils # Man Lymphocytes # (Manual) Monocytes # (Manual) Eosinophils # (Manual) Basophils # (Manual) PT INR APTT Heparin Anti-Xa Level 0.20 L POC ABG pH POC ABG pCO2 POC ABG pO2 Sodium Potassium Chloride Carbon Dioxide BUN Creatinine Glucose POC Glucose 205 H 339 H Calcium Phosphorus Magnesium AST Alkaline Phosphatase C-Reactive Protein Total Protein Albumin Lipase Vitamin B12 TSH Urine WBC (Auto) Urine Chloride Urine Total Protein Vancomycin Trough Crossmatch 10/29/16 10/29/16 10/29/16 01:05 06:19 09:30 WBC 20.3 H RBC 2.80 L Hgb 8.5 L Hct 26.7 L MCV RDW 15.4 H Plt Count 571 H Lymph % (Auto) [place] % (Auto) [place] # Seg Neutrophils % Seg Neuts % (Manual) 75.0 H Lymphocytes % (Manual) 4.0 L Monocytes % (Manual) Basophils % (Manual) Nucleated RBC % Seg Neutrophils # Seg Neutrophils # Man 15.2 H Lymphocytes # (Manual) 0.8 L Monocytes # (Manual) Eosinophils # (Manual) Basophils # (Manual) PT INR APTT Heparin Anti-Xa Level POC ABG pH POC ABG pCO2 POC ABG pO2 Sodium Potassium Chloride Carbon Dioxide BUN Creatinine Glucose POC Glucose 275 H 179 H Calcium Phosphorus Magnesium AST Alkaline Phosphatase C-Reactive Protein Total Protein Albumin Lipase Vitamin B12 TSH Urine WBC (Auto) Urine Chloride Urine Total Protein Vancomycin Trough Crossmatch 10/29/16 10/29/16 10/29/16 11:46 15:18 17:55 WBC RBC Hgb Hct MCV RDW Plt Count Lymph % (Auto) [place] % (Auto) [place] # Seg Neutrophils % Seg Neuts % (Manual) Lymphocytes % (Manual) Monocytes % (Manual) Basophils % (Manual) Nucleated RBC % Seg Neutrophils # Seg Neutrophils # Man Lymphocytes # (Manual) Monocytes # (Manual) Eosinophils # (Manual) Basophils # (Manual) PT INR APTT Heparin Anti-Xa Level 1.15 H POC ABG pH POC ABG pCO2 POC ABG pO2 Sodium Potassium Chloride Carbon Dioxide BUN Creatinine Glucose POC Glucose 122 H 255 H Calcium Phosphorus Magnesium AST Alkaline Phosphatase C-Reactive Protein Total Protein Albumin Lipase Vitamin B12 TSH Urine WBC (Auto) Urine Chloride Urine Total Protein Vancomycin Trough Crossmatch 10/30/16 10/30/16 10/30/16 00:10 05:30 05:30 WBC 19.8 H RBC 2.51 L Hgb 7.7 L Hct 24.1 L MCV RDW 15.5 H Plt Count 534 H Lymph % (Auto) [place] % (Auto) [place] # Seg Neutrophils % Seg Neuts % (Manual) Lymphocytes % (Manual) Monocytes % (Manual) Basophils % (Manual) Nucleated RBC % Seg Neutrophils # Seg Neutrophils # Man Lymphocytes # (Manual) Monocytes # (Manual) Eosinophils # (Manual) Basophils # (Manual) PT INR APTT Heparin Anti-Xa Level POC ABG pH POC ABG pCO2 POC ABG pO2 Sodium Potassium Chloride Carbon Dioxide BUN Creatinine Glucose 211 H POC Glucose 202 H Calcium 7.4 L Phosphorus Magnesium AST Alkaline Phosphatase C-Reactive Protein Total Protein Albumin Lipase Vitamin B12 TSH Urine WBC (Auto) Urine Chloride Urine Total Protein Vancomycin Trough Crossmatch 10/30/16 10/30/16 10/30/16 06:32 12:51 17:47 WBC RBC Hgb Hct MCV RDW Plt Count Lymph % (Auto) [place] % (Auto) [place] # Seg Neutrophils % Seg Neuts % (Manual) Lymphocytes % (Manual) Monocytes % (Manual) Basophils % (Manual) Nucleated RBC % Seg Neutrophils # Seg Neutrophils # Man Lymphocytes # (Manual) Monocytes # (Manual) Eosinophils # (Manual) Basophils # (Manual) PT INR APTT Heparin Anti-Xa Level POC ABG pH POC ABG pCO2 POC ABG pO2 Sodium Potassium Chloride Carbon Dioxide BUN Creatinine Glucose POC Glucose 207 H 218 H 169 H Calcium Phosphorus Magnesium AST Alkaline Phosphatase C-Reactive Protein Total Protein Albumin Lipase Vitamin B12 TSH Urine WBC (Auto) Urine Chloride Urine Total Protein Vancomycin Trough Crossmatch 10/30/16 10/31/16 10/31/16 23:59 05:25 11:21 WBC RBC Hgb Hct MCV RDW Plt Count Lymph % (Auto) [place] % (Auto) [place] # Seg Neutrophils % Seg Neuts % (Manual) Lymphocytes % (Manual) Monocytes % (Manual) Basophils % (Manual) Nucleated RBC % Seg Neutrophils # Seg Neutrophils # Man Lymphocytes # (Manual) Monocytes # (Manual) Eosinophils # (Manual) Basophils # (Manual) PT INR APTT Heparin Anti-Xa Level POC ABG pH POC ABG pCO2 POC ABG pO2 Sodium Potassium Chloride Carbon Dioxide BUN Creatinine Glucose POC Glucose 138 H 127 H 132 H Calcium Phosphorus Magnesium AST Alkaline Phosphatase C-Reactive Protein Total Protein Albumin Lipase Vitamin B12 TSH Urine WBC (Auto) Urine Chloride Urine Total Protein Vancomycin Trough Crossmatch 10/31/16 10/31/16 11/01/16 17:07 23:54 05:47 WBC RBC Hgb Hct MCV RDW Plt Count Lymph % (Auto) [place] % (Auto) [place] # Seg Neutrophils % Seg Neuts % (Manual) Lymphocytes % (Manual) Monocytes % (Manual) Basophils % (Manual) Nucleated RBC % Seg Neutrophils # Seg Neutrophils # Man Lymphocytes # (Manual) Monocytes # (Manual) Eosinophils # (Manual) Basophils # (Manual) PT INR APTT Heparin Anti-Xa Level POC ABG pH POC ABG pCO2 POC ABG pO2 Sodium Potassium Chloride Carbon Dioxide BUN Creatinine Glucose POC Glucose 138 H 153 H 150 H Calcium Phosphorus Magnesium AST Alkaline Phosphatase C-Reactive Protein Total Protein Albumin Lipase Vitamin B12 TSH Urine WBC (Auto) Urine Chloride Urine Total Protein Vancomycin Trough Crossmatch 11/01/16 11/01/16 11/01/16 06:33 06:33 12:16 WBC 19.2 H RBC 2.51 L Hgb 7.9 L Hct 24.8 L MCV 99 H D RDW 16.1 H Plt Count 569 H Lymph % (Auto) [place] % (Auto) [place] # Seg Neutrophils % Seg Neuts % (Manual) Lymphocytes % (Manual) Monocytes % (Manual) Basophils % (Manual) Nucleated RBC % Seg Neutrophils # Seg Neutrophils # Man Lymphocytes # (Manual) Monocytes # (Manual) Eosinophils # (Manual) Basophils # (Manual) PT INR APTT Heparin Anti-Xa Level POC ABG pH POC ABG pCO2 POC ABG pO2 Sodium Potassium 3.5 L Chloride Carbon Dioxide 21 L BUN Creatinine Glucose 137 H POC Glucose 125 H Calcium 7.7 L Phosphorus Magnesium AST Alkaline Phosphatase 148 H C-Reactive Protein Total Protein 6.2 L Albumin 2.0 L Lipase Vitamin B12 TSH Urine WBC (Auto) Urine Chloride Urine Total Protein Vancomycin Trough Crossmatch 11/01/16 11/02/16 11/02/16 17:37 00:05 04:15 WBC RBC Hgb Hct MCV RDW Plt Count Lymph % (Auto) [place] % (Auto) [place] # Seg Neutrophils % Seg Neuts % (Manual) Lymphocytes % (Manual) Monocytes % (Manual) Basophils % (Manual) Nucleated RBC % Seg Neutrophils # Seg Neutrophils # Man Lymphocytes # (Manual) Monocytes # (Manual) Eosinophils # (Manual) Basophils # (Manual) PT INR APTT Heparin Anti-Xa Level < 0.10 L POC ABG pH POC ABG pCO2 POC ABG pO2 Sodium Potassium 3.2 L Chloride Carbon Dioxide BUN 6 L Creatinine Glucose 135 H POC Glucose 164 H Calcium 7.5 L Phosphorus Magnesium AST Alkaline Phosphatase 132 H C-Reactive Protein Total Protein 6.2 L Albumin 1.8 L Lipase Vitamin B12 TSH Urine WBC (Auto) Urine Chloride Urine Total Protein Vancomycin Trough Crossmatch 11/02/16 11/02/16 11/02/16 04:15 05:54 12:15 WBC 17.7 H RBC 2.43 L Hgb 7.6 L Hct 23.5 L MCV RDW 15.9 H Plt Count 502 H Lymph % (Auto) [place] % (Auto) [place] # Seg Neutrophils % Seg Neuts % (Manual) 84.0 H Lymphocytes % (Manual) 11.0 L Monocytes % (Manual) Basophils % (Manual) Nucleated RBC % 1.0 H Seg Neutrophils # Seg Neutrophils # Man 14.9 H Lymphocytes # (Manual) Monocytes # (Manual) Eosinophils # (Manual) Basophils # (Manual) PT INR APTT Heparin Anti-Xa Level POC ABG pH POC ABG pCO2 POC ABG pO2 Sodium Potassium Chloride Carbon Dioxide BUN Creatinine Glucose POC Glucose 152 H 137 H Calcium Phosphorus Magnesium AST Alkaline Phosphatase C-Reactive Protein Total Protein Albumin Lipase Vitamin B12 TSH Urine WBC (Auto) Urine Chloride Urine Total Protein Vancomycin Trough Crossmatch 11/02/16 11/03/16 11/03/16 17:00 00:05 00:05 WBC RBC Hgb Hct MCV RDW Plt Count Lymph % (Auto) [place] % (Auto) [place] # Seg Neutrophils % Seg Neuts % (Manual) Lymphocytes % (Manual) Monocytes % (Manual) Basophils % (Manual) Nucleated RBC % Seg Neutrophils # Seg Neutrophils # Man Lymphocytes # (Manual) Monocytes # (Manual) Eosinophils # (Manual) Basophils # (Manual) PT INR APTT Heparin Anti-Xa Level POC ABG pH POC ABG pCO2 POC ABG pO2 Sodium Potassium Chloride Carbon Dioxide 20 L BUN 5 L Creatinine Glucose 139 H POC Glucose 161 H Calcium 6.7 L Phosphorus Magnesium 1.2 L AST Alkaline Phosphatase C-Reactive Protein Total Protein Albumin Lipase Vitamin B12 TSH Urine WBC (Auto) Urine Chloride Urine Total Protein Vancomycin Trough Crossmatch 11/03/16 11/03/16 11/03/16 00:05 02:05 04:23 WBC 15.9 H 14.0 H RBC 1.93 L 2.38 L Hgb 5.9 L* 7.3 L Hct 18.9 L* 23.1 L MCV 98 H RDW 15.9 H 15.9 H Plt Count Lymph % (Auto) [place] % (Auto) [place] # Seg Neutrophils % Seg Neuts % (Manual) 85.0 H Lymphocytes % (Manual) 4.0 L Monocytes % (Manual) Basophils % (Manual) Nucleated RBC % Seg Neutrophils # Seg Neutrophils # Man 13.5 H Lymphocytes # (Manual) 0.6 L Monocytes # (Manual) Eosinophils # (Manual) Basophils # (Manual) PT INR APTT Heparin Anti-Xa Level POC ABG pH POC ABG pCO2 POC ABG pO2 Sodium Potassium Chloride Carbon Dioxide BUN 5 L Creatinine Glucose 127 H POC Glucose Calcium 7.2 L Phosphorus Magnesium AST Alkaline Phosphatase C-Reactive Protein Total Protein 5.8 L Albumin 1.5 L Lipase Vitamin B12 TSH Urine WBC (Auto) Urine Chloride Urine Total Protein Vancomycin Trough Crossmatch 11/03/16 11/03/16 11/03/16 09:14 09:27 11:54 WBC RBC Hgb Hct MCV RDW Plt Count Lymph % (Auto) [place] % (Auto) [place] # Seg Neutrophils % Seg Neuts % (Manual) Lymphocytes % (Manual) Monocytes % (Manual) Basophils % (Manual) Nucleated RBC % Seg Neutrophils # Seg Neutrophils # Man Lymphocytes # (Manual) Monocytes # (Manual) Eosinophils # (Manual) Basophils # (Manual) PT INR APTT Heparin Anti-Xa Level 0.11 L POC ABG pH POC ABG pCO2 POC ABG pO2 Sodium Potassium Chloride Carbon Dioxide BUN 5 L Creatinine Glucose 111 H POC Glucose 139 H Calcium 6.7 L Phosphorus Magnesium AST Alkaline Phosphatase C-Reactive Protein Total Protein Albumin Lipase Vitamin B12 TSH Urine WBC (Auto) Urine Chloride Urine Total Protein Vancomycin Trough Crossmatch 11/03/16 11/03/16 11/03/16 16:26 18:01 18:01 WBC RBC Hgb Hct MCV RDW Plt Count Lymph % (Auto) [place] % (Auto) [place] # Seg Neutrophils % Seg Neuts % (Manual) Lymphocytes % (Manual) Monocytes % (Manual) Basophils % (Manual) Nucleated RBC % Seg Neutrophils # Seg Neutrophils # Man Lymphocytes # (Manual) Monocytes # (Manual) Eosinophils # (Manual) Basophils # (Manual) PT INR APTT Heparin Anti-Xa Level 2.00 H POC ABG pH POC ABG pCO2 POC ABG pO2 Sodium Potassium Chloride Carbon Dioxide BUN Creatinine Glucose POC Glucose 142 H Calcium Phosphorus Magnesium AST Alkaline Phosphatase C-Reactive Protein Total Protein Albumin Lipase Vitamin B12 TSH Urine WBC (Auto) Urine Chloride Urine Total Protein Vancomycin Trough Crossmatch See Detail 11/04/16 11/04/16 11/04/16 02:15 02:15 06:35 WBC 11.8 H RBC 2.39 L Hgb 7.4 L Hct 23.1 L MCV RDW 15.9 H Plt Count Lymph % (Auto) [place] % (Auto) [place] # Seg Neutrophils % Seg Neuts % (Manual) 76.0 H Lymphocytes % (Manual) 12.0 L Monocytes % (Manual) 9.0 H Basophils % (Manual) Nucleated RBC % Seg Neutrophils # Seg Neutrophils # Man 9.0 H Lymphocytes # (Manual) Monocytes # (Manual) 1.1 H Eosinophils # (Manual) Basophils # (Manual) PT INR APTT Heparin Anti-Xa Level < 0.10 L POC ABG pH POC ABG pCO2 POC ABG pO2 Sodium Potassium Chloride Carbon Dioxide 21 L BUN 5 L Creatinine Glucose 112 H POC Glucose Calcium 6.8 L Phosphorus Magnesium AST Alkaline Phosphatase C-Reactive Protein Total Protein 5.7 L Albumin 1.7 L Lipase Vitamin B12 TSH Urine WBC (Auto) Urine Chloride Urine Total Protein Vancomycin Trough Crossmatch 11/04/16 11/04/16 11/04/16 10:51 12:58 15:04 WBC RBC Hgb Hct MCV RDW Plt Count Lymph % (Auto) [place] % (Auto) [place] # Seg Neutrophils % Seg Neuts % (Manual) Lymphocytes % (Manual) Monocytes % (Manual) Basophils % (Manual) Nucleated RBC % Seg Neutrophils # Seg Neutrophils # Man Lymphocytes # (Manual) Monocytes # (Manual) Eosinophils # (Manual) Basophils # (Manual) PT INR APTT Heparin Anti-Xa Level 1.05 H POC ABG pH POC ABG pCO2 33.7 L POC ABG pO2 60 L Sodium Potassium Chloride Carbon Dioxide BUN Creatinine Glucose POC Glucose 118 H Calcium Phosphorus Magnesium AST Alkaline Phosphatase C-Reactive Protein Total Protein Albumin Lipase Vitamin B12 TSH Urine WBC (Auto) Urine Chloride Urine Total Protein Vancomycin Trough Crossmatch 11/04/16 11/04/16 11/05/16 17:20 20:31 02:30 WBC RBC Hgb Hct MCV RDW Plt Count Lymph % (Auto) [place] % (Auto) [place] # Seg Neutrophils % Seg Neuts % (Manual) Lymphocytes % (Manual) Monocytes % (Manual) Basophils % (Manual) Nucleated RBC % Seg Neutrophils # Seg Neutrophils # Man Lymphocytes # (Manual) Monocytes # (Manual) Eosinophils # (Manual) Basophils # (Manual) PT INR APTT Heparin Anti-Xa Level POC ABG pH POC ABG pCO2 POC ABG pO2 Sodium Potassium 3.5 L Chloride Carbon Dioxide 18 L BUN 5 L Creatinine 0.6 L Glucose 110 H POC Glucose 228 H 169 H Calcium 7.1 L Phosphorus Magnesium AST Alkaline Phosphatase C-Reactive Protein Total Protein Albumin 1.9 L Lipase Vitamin B12 TSH Urine WBC (Auto) Urine Chloride Urine Total Protein Vancomycin Trough Crossmatch 11/05/16 11/05/16 11/05/16 02:30 17:52 21:07 WBC 14.1 H RBC Hgb Hct MCV RDW 16.7 H Plt Count Lymph % (Auto) [place] % (Auto) [place] # Seg Neutrophils % Seg Neuts % (Manual) 80.0 H Lymphocytes % (Manual) 6.0 L Monocytes % (Manual) 8.0 H Basophils % (Manual) Nucleated RBC % Seg Neutrophils # Seg Neutrophils # Man 11.3 H Lymphocytes # (Manual) 0.8 L Monocytes # (Manual) 1.1 H Eosinophils # (Manual) Basophils # (Manual) PT INR APTT Heparin Anti-Xa Level < 0.10 L POC ABG pH POC ABG pCO2 POC ABG pO2 Sodium Potassium Chloride Carbon Dioxide BUN Creatinine Glucose POC Glucose 174 H Calcium Phosphorus Magnesium AST Alkaline Phosphatase C-Reactive Protein Total Protein Albumin Lipase Vitamin B12 TSH Urine WBC (Auto) Urine Chloride Urine Total Protein Vancomycin Trough Crossmatch 11/05/16 11/06/16 11/06/16 23:30 05:00 05:00 WBC 15.2 H RBC 3.29 L Hgb 10.0 L Hct MCV RDW 16.9 H Plt Count Lymph % (Auto) [place] % (Auto) [place] # Seg Neutrophils % Seg Neuts % (Manual) Lymphocytes % (Manual) Monocytes % (Manual) Basophils % (Manual) Nucleated RBC % Seg Neutrophils # Seg Neutrophils # Man Lymphocytes # (Manual) Monocytes # (Manual) Eosinophils # (Manual) Basophils # (Manual) PT INR APTT Heparin Anti-Xa Level 0.94 H POC ABG pH POC ABG pCO2 POC ABG pO2 Sodium Potassium Chloride Carbon Dioxide BUN Creatinine Glucose POC Glucose 131 H Calcium Phosphorus Magnesium AST Alkaline Phosphatase C-Reactive Protein Total Protein Albumin Lipase Vitamin B12 TSH Urine WBC (Auto) Urine Chloride Urine Total Protein Vancomycin Trough Crossmatch 11/06/16 11/06/16 11/06/16 05:00 11:45 18:23 WBC RBC Hgb Hct MCV RDW Plt Count Lymph % (Auto) [place] % (Auto) [place] # Seg Neutrophils % Seg Neuts % (Manual) Lymphocytes % (Manual) Monocytes % (Manual) Basophils % (Manual) Nucleated RBC % Seg Neutrophils # Seg Neutrophils # Man Lymphocytes # (Manual) Monocytes # (Manual) Eosinophils # (Manual) Basophils # (Manual) PT INR APTT Heparin Anti-Xa Level POC ABG pH POC ABG pCO2 POC ABG pO2 Sodium Potassium 3.5 L Chloride 107.1 H Carbon Dioxide 20 L BUN 4 L Creatinine 0.6 L Glucose 104 H POC Glucose 141 H 255 H Calcium 6.7 L Phosphorus Magnesium AST Alkaline Phosphatase C-Reactive Protein Total Protein Albumin Lipase Vitamin B12 TSH Urine WBC (Auto) Urine Chloride Urine Total Protein Vancomycin Trough Crossmatch 11/06/16 11/06/16 11/07/16 22:07 23:07 11:41 WBC RBC Hgb Hct MCV RDW Plt Count Lymph % (Auto) [place] % (Auto) [place] # Seg Neutrophils % Seg Neuts % (Manual) Lymphocytes % (Manual) Monocytes % (Manual) Basophils % (Manual) Nucleated RBC % Seg Neutrophils # Seg Neutrophils # Man Lymphocytes # (Manual) Monocytes # (Manual) Eosinophils # (Manual) Basophils # (Manual) PT INR APTT Heparin Anti-Xa Level 0.80 H POC ABG pH POC ABG pCO2 POC ABG pO2 Sodium Potassium Chloride Carbon Dioxide BUN Creatinine Glucose POC Glucose 183 H 132 H Calcium Phosphorus Magnesium AST Alkaline Phosphatase C-Reactive Protein Total Protein Albumin Lipase Vitamin B12 TSH Urine WBC (Auto) Urine Chloride Urine Total Protein Vancomycin Trough Crossmatch 11/07/16 11/07/16 11/07/16 12:17 17:05 17:58 WBC RBC Hgb Hct MCV RDW Plt Count Lymph % (Auto) [place] % (Auto) [place] # Seg Neutrophils % Seg Neuts % (Manual) Lymphocytes % (Manual) Monocytes % (Manual) Basophils % (Manual) Nucleated RBC % Seg Neutrophils # Seg Neutrophils # Man Lymphocytes # (Manual) Monocytes # (Manual) Eosinophils # (Manual) Basophils # (Manual) PT INR APTT Heparin Anti-Xa Level 0.87 H POC ABG pH 7.324 L POC ABG pCO2 POC ABG pO2 Sodium Potassium Chloride Carbon Dioxide BUN Creatinine Glucose POC Glucose 158 H Calcium Phosphorus Magnesium AST Alkaline Phosphatase C-Reactive Protein Total Protein Albumin Lipase Vitamin B12 TSH Urine WBC (Auto) Urine Chloride Urine Total Protein Vancomycin Trough Crossmatch 11/07/16 11/07/16 11/07/16 23:26 Unknown Unknown WBC 12.3 H RBC 2.96 L Hgb 9.1 L Hct 27.9 L MCV RDW 16.8 H Plt Count Lymph % (Auto) [place] % (Auto) [place] # Seg Neutrophils % Seg Neuts % (Manual) 80.0 H Lymphocytes % (Manual) 7.0 L Monocytes % (Manual) Basophils % (Manual) Nucleated RBC % Seg Neutrophils # Seg Neutrophils # Man 9.8 H Lymphocytes # (Manual) 0.9 L Monocytes # (Manual) Eosinophils # (Manual) Basophils # (Manual) PT INR APTT Heparin Anti-Xa Level POC ABG pH POC ABG pCO2 POC ABG pO2 Sodium Potassium Chloride Carbon Dioxide 19 L BUN Creatinine Glucose 106 H POC Glucose 130 H Calcium 6.9 L Phosphorus Magnesium AST Alkaline Phosphatase C-Reactive Protein Total Protein Albumin Lipase Vitamin B12 TSH Urine WBC (Auto) Urine Chloride Urine Total Protein Vancomycin Trough Crossmatch 11/07/16 11/08/16 11/08/16 Unknown 05:14 05:20 WBC 12.4 H RBC 3.04 L Hgb 9.2 L Hct 28.8 L MCV RDW 16.6 H Plt Count Lymph % (Auto) [place] % (Auto) [place] # Seg Neutrophils % Seg Neuts % (Manual) 77.0 H Lymphocytes % (Manual) 5.0 L Monocytes % (Manual) Basophils % (Manual) 2.0 H Nucleated RBC % Seg Neutrophils # Seg Neutrophils # Man 9.5 H Lymphocytes # (Manual) 0.6 L Monocytes # (Manual) Eosinophils # (Manual) Basophils # (Manual) 0.2 H PT INR APTT Heparin Anti-Xa Level 0.90 H POC ABG pH POC ABG pCO2 POC ABG pO2 Sodium Potassium Chloride Carbon Dioxide BUN Creatinine Glucose POC Glucose 204 H Calcium Phosphorus Magnesium AST Alkaline Phosphatase C-Reactive Protein Total Protein Albumin Lipase Vitamin B12 TSH Urine WBC (Auto) Urine Chloride Urine Total Protein Vancomycin Trough Crossmatch 11/08/16 11/08/16 11/08/16 05:20 12:10 13:10 WBC RBC Hgb Hct MCV RDW Plt Count Lymph % (Auto) [place] % (Auto) [place] # Seg Neutrophils % Seg Neuts % (Manual) Lymphocytes % (Manual) Monocytes % (Manual) Basophils % (Manual) Nucleated RBC % Seg Neutrophils # Seg Neutrophils # Man Lymphocytes # (Manual) Monocytes # (Manual) Eosinophils # (Manual) Basophils # (Manual) PT INR APTT Heparin Anti-Xa Level POC ABG pH POC ABG pCO2 33.7 L POC ABG pO2 Sodium 136 L Potassium Chloride Carbon Dioxide 19 L BUN Creatinine Glucose 192 H POC Glucose 180 H Calcium 7.1 L Phosphorus Magnesium AST Alkaline Phosphatase C-Reactive Protein Total Protein Albumin Lipase Vitamin B12 TSH Urine WBC (Auto) Urine Chloride Urine Total Protein Vancomycin Trough Crossmatch 11/08/16 11/08/16 11/08/16 17:26 20:45 23:34 WBC RBC Hgb Hct MCV RDW Plt Count Lymph % (Auto) [place] % (Auto) [place] # Seg Neutrophils % Seg Neuts % (Manual) Lymphocytes % (Manual) Monocytes % (Manual) Basophils % (Manual) Nucleated RBC % Seg Neutrophils # Seg Neutrophils # Man Lymphocytes # (Manual) Monocytes # (Manual) Eosinophils # (Manual) Basophils # (Manual) PT INR APTT Heparin Anti-Xa Level POC ABG pH POC ABG pCO2 POC ABG pO2 Sodium Potassium Chloride Carbon Dioxide BUN Creatinine Glucose POC Glucose 187 H 178 H Calcium Phosphorus Magnesium AST Alkaline Phosphatase C-Reactive Protein Total Protein Albumin Lipase Vitamin B12 TSH Urine WBC (Auto) Urine Chloride Urine Total Protein Vancomycin Trough 35.4 H Crossmatch 11/09/16 11/09/16 11/09/16 05:30 05:30 05:59 WBC 11.5 H RBC 2.96 L Hgb 9.2 L Hct 28.2 L MCV RDW 16.4 H Plt Count Lymph % (Auto) [place] % (Auto) [place] # Seg Neutrophils % Seg Neuts % (Manual) 76.0 H Lymphocytes % (Manual) 2.0 L Monocytes % (Manual) Basophils % (Manual) Nucleated RBC % Seg Neutrophils # Seg Neutrophils # Man 8.7 H Lymphocytes # (Manual) 0.2 L Monocytes # (Manual) Eosinophils # (Manual) Basophils # (Manual) PT INR APTT Heparin Anti-Xa Level POC ABG pH POC ABG pCO2 POC ABG pO2 Sodium Potassium 3.4 L Chloride 107.6 H Carbon Dioxide 19 L BUN Creatinine 0.6 L Glucose 207 H POC Glucose 263 H Calcium 7.3 L Phosphorus Magnesium AST Alkaline Phosphatase C-Reactive Protein Total Protein Albumin Lipase Vitamin B12 TSH Urine WBC (Auto) Urine Chloride Urine Total Protein Vancomycin Trough Crossmatch 11/09/16 11/09/16 11/09/16 11:49 15:24 18:04 WBC RBC Hgb Hct MCV RDW Plt Count Lymph % (Auto) [place] % (Auto) [place] # Seg Neutrophils % Seg Neuts % (Manual) Lymphocytes % (Manual) Monocytes % (Manual) Basophils % (Manual) Nucleated RBC % Seg Neutrophils # Seg Neutrophils # Man Lymphocytes # (Manual) Monocytes # (Manual) Eosinophils # (Manual) Basophils # (Manual) PT INR APTT Heparin Anti-Xa Level POC ABG pH POC ABG pCO2 33.8 L POC ABG pO2 131 H Sodium Potassium Chloride Carbon Dioxide BUN Creatinine Glucose POC Glucose 269 H 242 H Calcium Phosphorus Magnesium AST Alkaline Phosphatase C-Reactive Protein Total Protein Albumin Lipase Vitamin B12 TSH Urine WBC (Auto) Urine Chloride Urine Total Protein Vancomycin Trough Crossmatch 11/09/16 11/10/16 11/10/16 22:57 04:30 04:30 WBC 15.7 H RBC 3.17 L Hgb 9.7 L Hct 30.2 L MCV RDW 16.2 H Plt Count Lymph % (Auto) [place] % (Auto) [place] # Seg Neutrophils % Seg Neuts % (Manual) Lymphocytes % (Manual) Monocytes % (Manual) Basophils % (Manual) Nucleated RBC % Seg Neutrophils # Seg Neutrophils # Man 8.5 H Lymphocytes # (Manual) Monocytes # (Manual) Eosinophils # (Manual) 0.5 H Basophils # (Manual) PT INR APTT Heparin Anti-Xa Level POC ABG pH POC ABG pCO2 POC ABG pO2 Sodium Potassium Chloride Carbon Dioxide 19 L BUN Creatinine 0.6 L Glucose 199 H POC Glucose 239 H Calcium 7.8 L Phosphorus Magnesium AST Alkaline Phosphatase C-Reactive Protein Total Protein Albumin Lipase Vitamin B12 TSH Urine WBC (Auto) Urine Chloride Urine Total Protein Vancomycin Trough Crossmatch 11/10/16 11/10/16 11/10/16 04:30 11:32 16:00 WBC RBC Hgb Hct MCV RDW Plt Count Lymph % (Auto) [place] % (Auto) [place] # Seg Neutrophils % Seg Neuts % (Manual) Lymphocytes % (Manual) Monocytes % (Manual) Basophils % (Manual) Nucleated RBC % Seg Neutrophils # Seg Neutrophils # Man Lymphocytes # (Manual) Monocytes # (Manual) Eosinophils # (Manual) Basophils # (Manual) PT INR APTT Heparin Anti-Xa Level 1.09 H < 0.10 L POC ABG pH POC ABG pCO2 POC ABG pO2 Sodium Potassium Chloride Carbon Dioxide BUN Creatinine Glucose POC Glucose 211 H Calcium Phosphorus Magnesium AST Alkaline Phosphatase C-Reactive Protein Total Protein Albumin Lipase Vitamin B12 TSH Urine WBC (Auto) Urine Chloride Urine Total Protein Vancomycin Trough Crossmatch 11/10/16 11/10/16 11/10/16 17:39 18:00 23:06 WBC RBC Hgb Hct MCV RDW Plt Count Lymph % (Auto) [place] % (Auto) [place] # Seg Neutrophils % Seg Neuts % (Manual) Lymphocytes % (Manual) Monocytes % (Manual) Basophils % (Manual) Nucleated RBC % Seg Neutrophils # Seg Neutrophils # Man Lymphocytes # (Manual) Monocytes # (Manual) Eosinophils # (Manual) Basophils # (Manual) PT INR APTT Heparin Anti-Xa Level 0.85 H POC ABG pH POC ABG pCO2 POC ABG pO2 Sodium Potassium Chloride Carbon Dioxide BUN Creatinine Glucose POC Glucose 249 H 220 H Calcium Phosphorus Magnesium AST Alkaline Phosphatase C-Reactive Protein Total Protein Albumin Lipase Vitamin B12 TSH Urine WBC (Auto) Urine Chloride Urine Total Protein Vancomycin Trough Crossmatch 11/11/16 11/11/16 11/11/16 05:56 06:15 06:15 WBC 13.3 H RBC 2.87 L Hgb 8.7 L Hct 27.2 L MCV RDW 16.4 H Plt Count Lymph % (Auto) [place] % (Auto) [place] # 0.9 H Seg Neutrophils % 78.9 H Seg Neuts % (Manual) Lymphocytes % (Manual) Monocytes % (Manual) Basophils % (Manual) Nucleated RBC % Seg Neutrophils # 10.5 H Seg Neutrophils # Man Lymphocytes # (Manual) Monocytes # (Manual) Eosinophils # (Manual) Basophils # (Manual) PT INR APTT Heparin Anti-Xa Level POC ABG pH POC ABG pCO2 POC ABG pO2 Sodium Potassium 3.2 L Chloride Carbon Dioxide 19 L BUN Creatinine Glucose POC Glucose 117 H Calcium 7.6 L Phosphorus Magnesium AST Alkaline Phosphatase C-Reactive Protein Total Protein Albumin Lipase Vitamin B12 TSH Urine WBC (Auto) Urine Chloride Urine Total Protein Vancomycin Trough Crossmatch 11/11/16 11/11/16 11/11/16 12:26 16:58 17:33 WBC RBC Hgb Hct MCV RDW Plt Count Lymph % (Auto) [place] % (Auto) [place] # Seg Neutrophils % Seg Neuts % (Manual) Lymphocytes % (Manual) Monocytes % (Manual) Basophils % (Manual) Nucleated RBC % Seg Neutrophils # Seg Neutrophils # Man Lymphocytes # (Manual) Monocytes # (Manual) Eosinophils # (Manual) Basophils # (Manual) PT INR APTT Heparin Anti-Xa Level < 0.10 L POC ABG pH POC ABG pCO2 POC ABG pO2 Sodium Potassium Chloride Carbon Dioxide BUN Creatinine Glucose POC Glucose 114 H 161 H Calcium Phosphorus Magnesium AST Alkaline Phosphatase C-Reactive Protein Total Protein Albumin Lipase Vitamin B12 TSH Urine WBC (Auto) Urine Chloride Urine Total Protein Vancomycin Trough Crossmatch 11/12/16 11/12/16 11/12/16 05:00 05:00 05:00 WBC 12.8 H RBC 2.75 L Hgb 8.4 L Hct 25.7 L MCV RDW 16.3 H Plt Count Lymph % (Auto) [place] % (Auto) 7.5 H [place] # 1.0 H Seg Neutrophils % 78.0 H Seg Neuts % (Manual) Lymphocytes % (Manual) Monocytes % (Manual) Basophils % (Manual) Nucleated RBC % Seg Neutrophils # 10.0 H Seg Neutrophils # Man Lymphocytes # (Manual) Monocytes # (Manual) Eosinophils # (Manual) Basophils # (Manual) PT INR APTT Heparin Anti-Xa Level 0.87 H POC ABG pH POC ABG pCO2 POC ABG pO2 Sodium Potassium 3.4 L Chloride Carbon Dioxide 19 L BUN Creatinine Glucose 112 H POC Glucose Calcium 7.7 L Phosphorus Magnesium AST Alkaline Phosphatase C-Reactive Protein Total Protein Albumin Lipase Vitamin B12 TSH Urine WBC (Auto) Urine Chloride Urine Total Protein Vancomycin Trough Crossmatch 11/12/16 11/12/16 11/13/16 11:18 16:40 00:44 WBC RBC Hgb Hct MCV RDW Plt Count Lymph % (Auto) [place] % (Auto) [place] # Seg Neutrophils % Seg Neuts % (Manual) Lymphocytes % (Manual) Monocytes % (Manual) Basophils % (Manual) Nucleated RBC % Seg Neutrophils # Seg Neutrophils # Man Lymphocytes # (Manual) Monocytes # (Manual) Eosinophils # (Manual) Basophils # (Manual) PT INR APTT Heparin Anti-Xa Level POC ABG pH POC ABG pCO2 POC ABG pO2 Sodium Potassium Chloride Carbon Dioxide BUN Creatinine Glucose POC Glucose 135 H 139 H 169 H Calcium Phosphorus Magnesium AST Alkaline Phosphatase C-Reactive Protein Total Protein Albumin Lipase Vitamin B12 TSH Urine WBC (Auto) Urine Chloride Urine Total Protein Vancomycin Trough Crossmatch 11/13/16 11/13/16 11/13/16 05:28 05:28 06:02 WBC 12.7 H RBC 2.93 L Hgb 9.0 L Hct 27.6 L MCV RDW 16.1 H Plt Count Lymph % (Auto) [place] % (Auto) [place] # Seg Neutrophils % 78.6 H Seg Neuts % (Manual) Lymphocytes % (Manual) Monocytes % (Manual) Basophils % (Manual) Nucleated RBC % Seg Neutrophils # 10.0 H Seg Neutrophils # Man Lymphocytes # (Manual) Monocytes # (Manual) Eosinophils # (Manual) Basophils # (Manual) PT INR APTT Heparin Anti-Xa Level POC ABG pH POC ABG pCO2 POC ABG pO2 Sodium Potassium Chloride Carbon Dioxide 17 L BUN Creatinine Glucose 116 H POC Glucose 112 H Calcium 7.8 L Phosphorus Magnesium AST Alkaline Phosphatase C-Reactive Protein Total Protein Albumin Lipase Vitamin B12 TSH Urine WBC (Auto) Urine Chloride Urine Total Protein Vancomycin Trough Crossmatch 11/13/16 11/13/16 11/13/16 12:34 16:55 17:00 WBC RBC Hgb Hct MCV RDW Plt Count Lymph % (Auto) [place] % (Auto) [place] # Seg Neutrophils % Seg Neuts % (Manual) Lymphocytes % (Manual) Monocytes % (Manual) Basophils % (Manual) Nucleated RBC % Seg Neutrophils # Seg Neutrophils # Man Lymphocytes # (Manual) Monocytes # (Manual) Eosinophils # (Manual) Basophils # (Manual) PT INR APTT Heparin Anti-Xa Level POC ABG pH POC ABG pCO2 22.9 L POC ABG pO2 53 L Sodium Potassium Chloride Carbon Dioxide BUN Creatinine Glucose POC Glucose 109 H 122 H Calcium Phosphorus Magnesium AST Alkaline Phosphatase C-Reactive Protein Total Protein Albumin Lipase Vitamin B12 TSH Urine WBC (Auto) Urine Chloride Urine Total Protein Vancomycin Trough Crossmatch 11/13/16 11/14/16 11/14/16 23:33 04:42 04:42 WBC 11.7 H RBC 3.01 L Hgb 9.3 L Hct 28.9 L MCV RDW 16.5 H Plt Count Lymph % (Auto) [place] % (Auto) [place] # Seg Neutrophils % Seg Neuts % (Manual) 79.0 H Lymphocytes % (Manual) 10.0 L Monocytes % (Manual) Basophils % (Manual) Nucleated RBC % Seg Neutrophils # Seg Neutrophils # Man 9.2 H Lymphocytes # (Manual) Monocytes # (Manual) Eosinophils # (Manual) Basophils # (Manual) PT INR APTT Heparin Anti-Xa Level POC ABG pH POC ABG pCO2 POC ABG pO2 Sodium Potassium Chloride Carbon Dioxide 16 L BUN Creatinine Glucose 102 H POC Glucose 173 H Calcium 7.5 L Phosphorus Magnesium AST Alkaline Phosphatase C-Reactive Protein Total Protein Albumin Lipase Vitamin B12 TSH Urine WBC (Auto) Urine Chloride Urine Total Protein Vancomycin Trough Crossmatch 11/14/16 11/14/16 11/14/16 11:43 16:57 19:45 WBC RBC Hgb Hct MCV RDW Plt Count Lymph % (Auto) [place] % (Auto) [place] # Seg Neutrophils % Seg Neuts % (Manual) Lymphocytes % (Manual) Monocytes % (Manual) Basophils % (Manual) Nucleated RBC % Seg Neutrophils # Seg Neutrophils # Man Lymphocytes # (Manual) Monocytes # (Manual) Eosinophils # (Manual) Basophils # (Manual) PT INR APTT Heparin Anti-Xa Level 0.71 H POC ABG pH POC ABG pCO2 POC ABG pO2 Sodium Potassium Chloride Carbon Dioxide BUN Creatinine Glucose POC Glucose 130 H 209 H Calcium Phosphorus Magnesium AST Alkaline Phosphatase C-Reactive Protein Total Protein Albumin Lipase Vitamin B12 TSH Urine WBC (Auto) Urine Chloride Urine Total Protein Vancomycin Trough Crossmatch 11/14/16 11/15/16 11/16/16 23:43 23:47 06:11 WBC RBC Hgb Hct MCV RDW Plt Count Lymph % (Auto) [place] % (Auto) [place] # Seg Neutrophils % Seg Neuts % (Manual) Lymphocytes % (Manual) Monocytes % (Manual) Basophils % (Manual) Nucleated RBC % Seg Neutrophils # Seg Neutrophils # Man Lymphocytes # (Manual) Monocytes # (Manual) Eosinophils # (Manual) Basophils # (Manual) PT INR APTT Heparin Anti-Xa Level POC ABG pH POC ABG pCO2 POC ABG pO2 Sodium Potassium Chloride Carbon Dioxide BUN Creatinine Glucose POC Glucose 167 H 114 H 125 H Calcium Phosphorus Magnesium AST Alkaline Phosphatase C-Reactive Protein Total Protein Albumin Lipase Vitamin B12 TSH Urine WBC (Auto) Urine Chloride Urine Total Protein Vancomycin Trough Crossmatch 11/16/16 11/16/16 11/16/16 09:05 09:05 09:05 WBC RBC 2.53 L Hgb 8.0 L Hct 23.7 L MCV RDW 15.9 H Plt Count Lymph % (Auto) [place] % (Auto) [place] # Seg Neutrophils % Seg Neuts % (Manual) Lymphocytes % (Manual) Monocytes % (Manual) Basophils % (Manual) Nucleated RBC % Seg Neutrophils # Seg Neutrophils # Man Lymphocytes # (Manual) Monocytes # (Manual) Eosinophils # (Manual) Basophils # (Manual) PT INR APTT Heparin Anti-Xa Level POC ABG pH POC ABG pCO2 POC ABG pO2 Sodium Potassium 2.5 L* D Chloride Carbon Dioxide 19 L BUN 5 L Creatinine Glucose 103 H POC Glucose Calcium 6.6 L Phosphorus Magnesium 1.3 L AST Alkaline Phosphatase C-Reactive Protein Total Protein Albumin Lipase Vitamin B12 TSH Urine WBC (Auto) Urine Chloride Urine Total Protein Vancomycin Trough Crossmatch 11/16/16 11/16/16 11/16/16 12:15 13:00 14:45 WBC RBC Hgb Hct MCV RDW Plt Count Lymph % (Auto) [place] % (Auto) [place] # Seg Neutrophils % Seg Neuts % (Manual) Lymphocytes % (Manual) Monocytes % (Manual) Basophils % (Manual) Nucleated RBC % Seg Neutrophils # Seg Neutrophils # Man Lymphocytes # (Manual) Monocytes # (Manual) Eosinophils # (Manual) Basophils # (Manual) PT 19.1 H INR 1.61 H APTT Heparin Anti-Xa Level POC ABG pH 7.479 H POC ABG pCO2 23.6 L POC ABG pO2 Sodium Potassium Chloride Carbon Dioxide BUN Creatinine Glucose POC Glucose 129 H Calcium Phosphorus Magnesium AST Alkaline Phosphatase C-Reactive Protein Total Protein Albumin Lipase Vitamin B12 TSH Urine WBC (Auto) Urine Chloride Urine Total Protein Vancomycin Trough Crossmatch 11/16/16 11/17/16 11/17/16 17:43 00:30 04:32 WBC RBC Hgb Hct MCV RDW Plt Count Lymph % (Auto) [place] % (Auto) [place] # Seg Neutrophils % Seg Neuts % (Manual) Lymphocytes % (Manual) Monocytes % (Manual) Basophils % (Manual) Nucleated RBC % Seg Neutrophils # Seg Neutrophils # Man Lymphocytes # (Manual) Monocytes # (Manual) Eosinophils # (Manual) Basophils # (Manual) PT INR APTT Heparin Anti-Xa Level POC ABG pH POC ABG pCO2 POC ABG pO2 Sodium Potassium Chloride Carbon Dioxide 18 L BUN Creatinine Glucose 127 H POC Glucose 224 H 259 H Calcium 7.5 L Phosphorus Magnesium AST Alkaline Phosphatase C-Reactive Protein Total Protein Albumin Lipase Vitamin B12 TSH Urine WBC (Auto) Urine Chloride Urine Total Protein Vancomycin Trough Crossmatch 11/17/16 11/17/16 11/17/16 05:42 08:34 12:19 WBC RBC 2.85 L Hgb 8.9 L Hct 26.5 L MCV RDW 16.2 H Plt Count Lymph % (Auto) [place] % (Auto) [place] # Seg Neutrophils % Seg Neuts % (Manual) Lymphocytes % (Manual) Monocytes % (Manual) Basophils % (Manual) Nucleated RBC % Seg Neutrophils # Seg Neutrophils # Man Lymphocytes # (Manual) Monocytes # (Manual) Eosinophils # (Manual) Basophils # (Manual) PT INR APTT Heparin Anti-Xa Level POC ABG pH POC ABG pCO2 POC ABG pO2 Sodium Potassium Chloride Carbon Dioxide BUN Creatinine Glucose POC Glucose 118 H 264 H Calcium Phosphorus Magnesium AST Alkaline Phosphatase C-Reactive Protein Total Protein Albumin Lipase Vitamin B12 TSH Urine WBC (Auto) Urine Chloride Urine Total Protein Vancomycin Trough Crossmatch 11/17/16 11/17/16 11/18/16 16:52 23:44 04:53 WBC RBC Hgb Hct MCV RDW Plt Count Lymph % (Auto) [place] % (Auto) [place] # Seg Neutrophils % Seg Neuts % (Manual) Lymphocytes % (Manual) Monocytes % (Manual) Basophils % (Manual) Nucleated RBC % Seg Neutrophils # Seg Neutrophils # Man Lymphocytes # (Manual) Monocytes # (Manual) Eosinophils # (Manual) Basophils # (Manual) PT INR APTT Heparin Anti-Xa Level POC ABG pH POC ABG pCO2 POC ABG pO2 Sodium Potassium Chloride Carbon Dioxide BUN Creatinine Glucose POC Glucose 256 H 109 H 287 H Calcium Phosphorus Magnesium AST Alkaline Phosphatase C-Reactive Protein Total Protein Albumin Lipase Vitamin B12 TSH Urine WBC (Auto) Urine Chloride Urine Total Protein Vancomycin Trough Crossmatch 11/18/16 11/18/16 11/18/16 05:31 05:45 05:45 WBC RBC Hgb Hct MCV RDW Plt Count Lymph % (Auto) [place] % (Auto) [place] # Seg Neutrophils % Seg Neuts % (Manual) Lymphocytes % (Manual) Monocytes % (Manual) Basophils % (Manual) Nucleated RBC % Seg Neutrophils # Seg Neutrophils # Man Lymphocytes # (Manual) Monocytes # (Manual) Eosinophils # (Manual) Basophils # (Manual) PT 20.1 H INR 1.72 H APTT 131.1 H* Heparin Anti-Xa Level 0.18 L POC ABG pH 7.252 L POC ABG pCO2 32.0 L POC ABG pO2 Sodium Potassium Chloride 107.1 H Carbon Dioxide 17 L BUN Creatinine Glucose 284 H POC Glucose Calcium 7.2 L Phosphorus Magnesium AST Alkaline Phosphatase C-Reactive Protein Total Protein 5.5 L Albumin 2.1 L Lipase Vitamin B12 TSH Urine WBC (Auto) Urine Chloride Urine Total Protein Vancomycin Trough Crossmatch 11/18/16 11/18/1611/18/17 05:45 09:17 12:06 WBC 13.3 H RBC 3.07 L Hgb 9.2 L Hct 29.5 L MCV RDW 16.9 H Plt Count Lymph % (Auto) 11.0 L [place] % (Auto) [place] # Seg Neutrophils % 82.9 H Seg Neuts % (Manual) Lymphocytes % (Manual) Monocytes % (Manual) Basophils % (Manual) Nucleated RBC % Seg Neutrophils # 11.0 H Seg Neutrophils # Man Lymphocytes # (Manual) Monocytes # (Manual) Eosinophils # (Manual) Basophils # (Manual) PT INR APTT Heparin Anti-Xa Level POC ABG pH POC ABG pCO2 24.3 L POC ABG pO2 79 L Sodium Potassium Chloride Carbon Dioxide BUN Creatinine Glucose POC Glucose 433 H Calcium Phosphorus Magnesium AST Alkaline Phosphatase C-Reactive Protein Total Protein Albumin Lipase Vitamin B12 TSH Urine WBC (Auto) Urine Chloride Urine Total Protein Vancomycin Trough Crossmatch 11/18/16 11/18/16 11/18/16 12:09 13:00 17:22 WBC 12.6 H RBC 2.79 L Hgb 8.6 L Hct 26.6 L MCV RDW 17.0 H Plt Count Lymph % (Auto) [place] % (Auto) [place] # Seg Neutrophils % Seg Neuts % (Manual) 90.0 H Lymphocytes % (Manual) 8.0 L Monocytes % (Manual) Basophils % (Manual) Nucleated RBC % Seg Neutrophils # Seg Neutrophils # Man 11.3 H Lymphocytes # (Manual) 1.0 L Monocytes # (Manual) Eosinophils # (Manual) Basophils # (Manual) PT INR APTT Heparin Anti-Xa Level POC ABG pH POC ABG pCO2 POC ABG pO2 Sodium Potassium Chloride Carbon Dioxide BUN Creatinine Glucose POC Glucose 429 H 297 H Calcium Phosphorus Magnesium AST Alkaline Phosphatase C-Reactive Protein Total Protein Albumin Lipase Vitamin B12 TSH Urine WBC (Auto) Urine Chloride Urine Total Protein Vancomycin Trough Crossmatch 11/18/16 11/19/16 11/19/16 23:27 04:30 04:30 WBC RBC 2.92 L Hgb 8.8 L Hct 27.0 L MCV RDW 16.6 H Plt Count Lymph % (Auto) [place] % (Auto) [place] # Seg Neutrophils % Seg Neuts % (Manual) Lymphocytes % (Manual) Monocytes % (Manual) Basophils % (Manual) Nucleated RBC % Seg Neutrophils # Seg Neutrophils # Man Lymphocytes # (Manual) Monocytes # (Manual) Eosinophils # (Manual) Basophils # (Manual) PT INR APTT Heparin Anti-Xa Level POC ABG pH POC ABG pCO2 POC ABG pO2 Sodium Potassium 3.0 L Chloride 107.9 H Carbon Dioxide 20 L BUN Creatinine Glucose 231 H POC Glucose 268 H Calcium 7.1 L Phosphorus Magnesium AST Alkaline Phosphatase C-Reactive Protein Total Protein 5.5 L Albumin 2.1 L Lipase Vitamin B12 TSH Urine WBC (Auto) Urine Chloride Urine Total Protein Vancomycin Trough Crossmatch 11/19/16 11/19/16 04:40 06:40 WBC RBC Hgb Hct MCV RDW Plt Count Lymph % (Auto) [place] % (Auto) [place] # Seg Neutrophils % Seg Neuts % (Manual) Lymphocytes % (Manual) Monocytes % (Manual) Basophils % (Manual) Nucleated RBC % Seg Neutrophils # Seg Neutrophils # Man Lymphocytes # (Manual) Monocytes # (Manual) Eosinophils # (Manual) Basophils # (Manual) PT INR APTT Heparin Anti-Xa Level POC ABG pH POC ABG pCO2 POC ABG pO2 Sodium Potassium Chloride Carbon Dioxide BUN Creatinine Glucose POC Glucose 267 H 244 H Calcium Phosphorus Magnesium AST Alkaline Phosphatase C-Reactive Protein Total Protein Albumin Lipase Vitamin B12 TSH Urine WBC (Auto) Urine Chloride Urine Total Protein Vancomycin Trough Crossmatch Chest x-ray: image reviewed Allied health notes reviewed: RT
--- NOTE | 2016-11-19 11:48 | Progress Note ---
Assessment and Plan 66 YO F admitted 10/13 w/ Resp failure requiring intubation, DKA, Sepsis d/t UTI and SFA thrombosis who I had been initially asked to consult for AMS.Pt had intact symmetric neurologic exam aside from impaired level of arousal and concentration, consistent with toxic metabolic infectious derangement as the etiology for neurologic decompensation. She followed midline and peripheral commands w/ some nodding appropriately and @ least 3/5 power throughout. There was no new focality on neurologic examination to suggest acute [employer] process e.g. Stroke, Seizure or Meningitis. CTH/NH4 neg. EEG mild-mod nonspecific diffuse cerebral dysfunction ? maximal in LT region vs. artifact. MRI Brain that I ordered was cancelled and therefore not performed. I have been asked to reveal on 11/19 for b/l lower facial twitching movements post cardiac arrest on 11/18. 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 current exam eyes open, not following commands, intact brainstem reflexes, ? withdrawal UE to pain and triple flexion LE. Recommendations: 1. MRI Brain +/- Marco 2. Routine EEG to assess facial twitching movements 3. Cont Infectious work up/medical management for UTI, PNA, cellulitis, bacteremia, etc. 4. Avoid hyponatremia, hypo/hyper-calcemia, hypo/hyperglycemia, acidosis, hypoxia/hypoxemia, hypercarbia/hypercapnia 5. Avoid institution of any psychoactive medications (e.g. antihistamines, anticholinergics, BZD, hypnotics, opiates) as able unless low doses of low potency antipsychotic needed for behavioral issues complicating medical care 6. Will consider AED pending EEG result Subjective Date of service: 11/19/16 Principal diagnosis: respiratory failure on mechanical ventilatory support, DKA Interval history: PEA arrest s/p ACLS on 11/18 AM Objective - Vital Sign Vital Signs - 12hr 11/19/16 11/19/16 11/19/16 00:00 00:01 00:30 Temperature 98.1 F Pulse Rate 86 84 Respiratory 22 28 H Rate Blood Pressure 106/47 104/54 O2 Sat by Pulse 100 100 Oximetry 11/19/16 11/19/16 11/19/16 01:00 01:30 02:00 Temperature Pulse Rate 86 86 88 Respiratory 17 30 H 26 H Rate Blood Pressure 106/44 107/52 91/52 O2 Sat by Pulse 100 100 100 Oximetry 0411/19/16 11/19/16 02:30 03:00 03:30 Temperature Pulse Rate 87 87 86 Respiratory 29 H 30 H 27 H Rate Blood Pressure 114/56 110/48 113/49 O2 Sat by Pulse 100 100 Oximetry 11/19/16 11/19/16 11/19/16 04:00 04:30 04:35 Temperature 97.6 F Pulse Rate 87 87 88 Respiratory 27 H 29 H Rate Blood Pressure 116/49 116/53 116/53 O2 Sat by Pulse 100 100 100 Oximetry 11/19/16 11/19/16 11/19/16 05:01 05:30 06:00 Temperature Pulse Rate 98 H 93 H 88 Respiratory 18 26 H 26 H Rate Blood Pressure 111/47 133/55 126/51 O2 Sat by Pulse 95 100 100 Oximetry 11/19/16 11/19/16 11/19/16 06:30 08:00 08:10 Temperature 99.0 F Pulse Rate 115 H 116 H Respiratory 28 H Rate Blood Pressure 115/61 132/68 O2 Sat by Pulse 99 100 Oximetry - General Apperance Constitutional: uncomfortable, acutely ill - EENT EENT: ATNC, PERRL, mucous membranes dry - Respiratory Respiratory: chest non-tender, no respiratory distress, decreased breath sounds - Cardiovascular Cardiovascular: regular rate Extremities: no peripheral edema bilat, no clubbing, cyanosis, no inflammation, no ischemia or petechiae - Gastrointestinal Gastrointestinal: hypoactive bowel sounds, soft, non-distended - Integumentary Integumentary: normal - Neurologic Cranial nerve examination: PERRL, face symmetric, Intact Vestibulo-ocular r, intact corneal reflex Speech examination: other (no speech/trached) Detailed sensory examination: other (triple flexion in LE to pain and ? withdrawal in UE to pain) Reflex and gait examination: Babinski's sign (b/l) Reflexes: 0: ankle, 1+: bicep, knee, tricep - Musculoskeletal Musculoskeletal: no fluid collection, no pain, normal range of motion - Laboratory Findings CBC and BMP: 11/19/16 04:30 11/19/16 04:30 Abnormal Lab Findings: Abnormal Labs 10/13/16 10/13/16 10/13/16 06:38 06:38 07:23 WBC RBC Hgb Hct MCV RDW Plt Count Lymph % (Auto) Eddy % (Auto) Eddy # Seg Neutrophils % Seg Neuts % (Manual) Lymphocytes % (Manual) Monocytes % (Manual) Basophils % (Manual) Nucleated RBC % Seg Neutrophils # Seg Neutrophils # Man Lymphocytes # (Manual) Monocytes # (Manual) Eosinophils # (Manual) Basophils # (Manual) PT INR APTT Heparin Anti-Xa Level POC ABG pH POC ABG pCO2 POC ABG pO2 Sodium Potassium 6.2 H* Chloride Carbon Dioxide 8 L* BUN 85 H Creatinine 2.8 H Glucose 602 H* POC Glucose 495 H Calcium 7.9 L Phosphorus 6.9 H D Magnesium 3.0 H AST Alkaline Phosphatase C-Reactive Protein Total Protein Albumin Lipase Vitamin B12 TSH Urine WBC (Auto) Urine Chloride Urine Total Protein Vancomycin Trough Crossmatch 10/13/16 10/13/16 10/13/16 08:49 08:55 10:12 WBC RBC Hgb Hct MCV RDW Plt Count Lymph % (Auto) Eddy % (Auto) Eddy # Seg Neutrophils % Seg Neuts % (Manual) Lymphocytes % (Manual) Monocytes % (Manual) Basophils % (Manual) Nucleated RBC % Seg Neutrophils # Seg Neutrophils # Man Lymphocytes # (Manual) Monocytes # (Manual) Eosinophils # (Manual) Basophils # (Manual) PT INR APTT Heparin Anti-Xa Level POC ABG pH POC ABG pCO2 POC ABG pO2 Sodium Potassium 5.6 H Chloride Carbon Dioxide 11 L BUN 77 H Creatinine 2.7 H Glucose 457 H POC Glucose > 500 H 424 H Calcium 8.0 L Phosphorus Magnesium AST Alkaline Phosphatase C-Reactive Protein Total Protein Albumin Lipase Vitamin B12 TSH Urine WBC (Auto) Urine Chloride Urine Total Protein Vancomycin Trough Crossmatch 10/13/16 10/13/16 10/13/16 10:44 11:22 12:20 WBC RBC Hgb Hct MCV RDW Plt Count Lymph % (Auto) Eddy % (Auto) Eddy # Seg Neutrophils % Seg Neuts % (Manual) Lymphocytes % (Manual) Monocytes % (Manual) Basophils % (Manual) Nucleated RBC % Seg Neutrophils # Seg Neutrophils # Man Lymphocytes # (Manual) Monocytes # (Manual) Eosinophils # (Manual) Basophils # (Manual) PT INR APTT Heparin Anti-Xa Level POC ABG pH POC ABG pCO2 POC ABG pO2 Sodium Potassium 5.4 H Chloride Carbon Dioxide 14 L BUN 72 H Creatinine 2.6 H Glucose 383 H POC Glucose 391 H 313 H Calcium 8.2 L Phosphorus Magnesium AST Alkaline Phosphatase C-Reactive Protein Total Protein Albumin Lipase Vitamin B12 TSH Urine WBC (Auto) Urine Chloride Urine Total Protein Vancomycin Trough Crossmatch 10/13/16 10/13/16 10/13/16 13:32 14:44 15:57 WBC RBC Hgb Hct MCV RDW Plt Count Lymph % (Auto) Eddy % (Auto) Eddy # Seg Neutrophils % Seg Neuts % (Manual) Lymphocytes % (Manual) Monocytes % (Manual) Basophils % (Manual) Nucleated RBC % Seg Neutrophils # Seg Neutrophils # Man Lymphocytes # (Manual) Monocytes # (Manual) Eosinophils # (Manual) Basophils # (Manual) PT INR APTT Heparin Anti-Xa Level POC ABG pH POC ABG pCO2 POC ABG pO2 Sodium Potassium Chloride Carbon Dioxide BUN Creatinine Glucose POC Glucose 296 H 210 H 190 H Calcium Phosphorus Magnesium AST Alkaline Phosphatase C-Reactive Protein Total Protein Albumin Lipase Vitamin B12 TSH Urine WBC (Auto) Urine Chloride Urine Total Protein Vancomycin Trough Crossmatch 10/13/16 10/13/16 10/13/16 16:14 16:14 17:17 WBC RBC Hgb Hct MCV RDW Plt Count Lymph % (Auto) Eddy % (Auto) Eddy # Seg Neutrophils % Seg Neuts % (Manual) Lymphocytes % (Manual) Monocytes % (Manual) Basophils % (Manual) Nucleated RBC % Seg Neutrophils # Seg Neutrophils # Man Lymphocytes # (Manual) Monocytes # (Manual) Eosinophils # (Manual) Basophils # (Manual) PT INR APTT Heparin Anti-Xa Level POC ABG pH POC ABG pCO2 POC ABG pO2 Sodium Potassium Chloride Carbon Dioxide 17 L BUN 58 H Creatinine 1.8 H Glucose 172 H POC Glucose 193 H Calcium 7.7 L Phosphorus Magnesium AST Alkaline Phosphatase C-Reactive Protein 10.50 H Total Protein Albumin Lipase Vitamin B12 TSH Urine WBC (Auto) Urine Chloride Urine Total Protein Vancomycin Trough Crossmatch 10/13/16 10/13/16 10/13/16 17:55 18:32 19:41 WBC RBC Hgb Hct MCV RDW Plt Count Lymph % (Auto) Eddy % (Auto) Eddy # Seg Neutrophils % Seg Neuts % (Manual) Lymphocytes % (Manual) Monocytes % (Manual) Basophils % (Manual) Nucleated RBC % Seg Neutrophils # Seg Neutrophils # Man Lymphocytes # (Manual) Monocytes # (Manual) Eosinophils # (Manual) Basophils # (Manual) PT INR APTT Heparin Anti-Xa Level POC ABG pH POC ABG pCO2 30.6 L POC ABG pO2 218 H Sodium Potassium Chloride Carbon Dioxide BUN Creatinine Glucose POC Glucose 192 H 177 H Calcium Phosphorus Magnesium AST Alkaline Phosphatase C-Reactive Protein Total Protein Albumin Lipase Vitamin B12 TSH Urine WBC (Auto) Urine Chloride Urine Total Protein Vancomycin Trough Crossmatch 10/13/16 10/13/16 10/13/16 20:54 22:07 23:13 WBC RBC Hgb Hct MCV RDW Plt Count Lymph % (Auto) Eddy % (Auto) Eddy # Seg Neutrophils % Seg Neuts % (Manual) Lymphocytes % (Manual) Monocytes % (Manual) Basophils % (Manual) Nucleated RBC % Seg Neutrophils # Seg Neutrophils # Man Lymphocytes # (Manual) Monocytes # (Manual) Eosinophils # (Manual) Basophils # (Manual) PT INR APTT Heparin Anti-Xa Level POC ABG pH POC ABG pCO2 POC ABG pO2 Sodium Potassium Chloride Carbon Dioxide BUN Creatinine Glucose POC Glucose 178 H 160 H 168 H Calcium Phosphorus Magnesium AST Alkaline Phosphatase C-Reactive Protein Total Protein Albumin Lipase Vitamin B12 TSH Urine WBC (Auto) Urine Chloride Urine Total Protein Vancomycin Trough Crossmatch 10/13/16 10/13/16 10/14/16 23:25 Unknown 00:21 WBC RBC Hgb Hct MCV RDW Plt Count Lymph % (Auto) Eddy % (Auto) Eddy # Seg Neutrophils % Seg Neuts % (Manual) Lymphocytes % (Manual) Monocytes % (Manual) Basophils % (Manual) Nucleated RBC % Seg Neutrophils # Seg Neutrophils # Man Lymphocytes # (Manual) Monocytes # (Manual) Eosinophils # (Manual) Basophils # (Manual) PT INR APTT Heparin Anti-Xa Level POC ABG pH POC ABG pCO2 POC ABG pO2 Sodium 148 H Potassium Chloride 114.6 H Carbon Dioxide 17 L BUN 56 H Creatinine 1.6 H Glucose 151 H POC Glucose 171 H Calcium 7.8 L Phosphorus Magnesium AST Alkaline Phosphatase C-Reactive Protein Total Protein Albumin Lipase Vitamin B12 TSH Urine WBC (Auto) Urine Chloride 10.0 L Urine Total Protein < 4 L Vancomycin Trough Crossmatch 10/14/16 10/14/16 10/14/16 01:22 02:29 03:30 WBC RBC Hgb Hct MCV RDW Plt Count Lymph % (Auto) Eddy % (Auto) Eddy # Seg Neutrophils % Seg Neuts % (Manual) Lymphocytes % (Manual) Monocytes % (Manual) Basophils % (Manual) Nucleated RBC % Seg Neutrophils # Seg Neutrophils # Man Lymphocytes # (Manual) Monocytes # (Manual) Eosinophils # (Manual) Basophils # (Manual) PT INR APTT Heparin Anti-Xa Level POC ABG pH POC ABG pCO2 POC ABG pO2 Sodium Potassium Chloride Carbon Dioxide BUN Creatinine Glucose POC Glucose 144 H 136 H 143 H Calcium Phosphorus Magnesium AST Alkaline Phosphatase C-Reactive Protein Total Protein Albumin Lipase Vitamin B12 TSH Urine WBC (Auto) Urine Chloride Urine Total Protein Vancomycin Trough Crossmatch 10/14/16 10/14/16 10/14/16 04:28 05:16 05:44 WBC RBC Hgb Hct MCV RDW Plt Count Lymph % (Auto) Eddy % (Auto) Eddy # Seg Neutrophils % Seg Neuts % (Manual) Lymphocytes % (Manual) Monocytes % (Manual) Basophils % (Manual) Nucleated RBC % Seg Neutrophils # Seg Neutrophils # Man Lymphocytes # (Manual) Monocytes # (Manual) Eosinophils # (Manual) Basophils # (Manual) PT INR APTT Heparin Anti-Xa Level POC ABG pH POC ABG pCO2 28.2 L POC ABG pO2 125 H Sodium Potassium Chloride Carbon Dioxide BUN Creatinine Glucose POC Glucose 133 H 160 H Calcium Phosphorus Magnesium AST Alkaline Phosphatase C-Reactive Protein Total Protein Albumin Lipase Vitamin B12 TSH Urine WBC (Auto) Urine Chloride Urine Total Protein Vancomycin Trough Crossmatch 10/14/16 10/14/16 10/14/16 06:12 06:45 07:03 WBC RBC Hgb Hct MCV RDW Plt Count Lymph % (Auto) Eddy % (Auto) Eddy # Seg Neutrophils % Seg Neuts % (Manual) Lymphocytes % (Manual) Monocytes % (Manual) Basophils % (Manual) Nucleated RBC % Seg Neutrophils # Seg Neutrophils # Man Lymphocytes # (Manual) Monocytes # (Manual) Eosinophils # (Manual) Basophils # (Manual) PT INR APTT Heparin Anti-Xa Level POC ABG pH POC ABG pCO2 POC ABG pO2 Sodium 149 H Potassium Chloride 115.4 H Carbon Dioxide 17 L BUN 45 H Creatinine 1.5 H Glucose 139 H POC Glucose 149 H Calcium 7.4 L Phosphorus 1.0 L D Magnesium AST Alkaline Phosphatase C-Reactive Protein Total Protein Albumin Lipase Vitamin B12 TSH Urine WBC (Auto) Urine Chloride Urine Total Protein Vancomycin Trough Crossmatch 10/14/16 10/14/16 10/14/16 07:03 08:02 09:16 WBC RBC Hgb Hct MCV RDW Plt Count Lymph % (Auto) Eddy % (Auto) Eddy # Seg Neutrophils % Seg Neuts % (Manual) Lymphocytes % (Manual) Monocytes % (Manual) Basophils % (Manual) Nucleated RBC % Seg Neutrophils # Seg Neutrophils # Man Lymphocytes # (Manual) Monocytes # (Manual) Eosinophils # (Manual) Basophils # (Manual) PT INR APTT Heparin Anti-Xa Level POC ABG pH POC ABG pCO2 POC ABG pO2 Sodium Potassium Chloride Carbon Dioxide BUN Creatinine Glucose POC Glucose 156 H 158 H Calcium Phosphorus Magnesium AST Alkaline Phosphatase C-Reactive Protein Total Protein Albumin Lipase 738 H Vitamin B12 TSH Urine WBC (Auto) Urine Chloride Urine Total Protein Vancomycin Trough Crossmatch 10/14/16 10/14/16 10/14/16 10:26 11:03 11:57 WBC RBC Hgb Hct MCV RDW Plt Count Lymph % (Auto) Eddy % (Auto) Eddy # Seg Neutrophils % Seg Neuts % (Manual) Lymphocytes % (Manual) Monocytes % (Manual) Basophils % (Manual) Nucleated RBC % Seg Neutrophils # Seg Neutrophils # Man Lymphocytes # (Manual) Monocytes # (Manual) Eosinophils # (Manual) Basophils # (Manual) PT INR APTT Heparin Anti-Xa Level POC ABG pH 7.198 L POC ABG pCO2 47.5 H POC ABG pO2 Sodium Potassium Chloride Carbon Dioxide BUN Creatinine Glucose POC Glucose 174 H 189 H Calcium Phosphorus Magnesium AST Alkaline Phosphatase C-Reactive Protein Total Protein Albumin Lipase Vitamin B12 TSH Urine WBC (Auto) Urine Chloride Urine Total Protein Vancomycin Trough Crossmatch 10/14/16 10/14/16 10/14/16 12:02 12:02 13:11 WBC 13.4 H RBC 3.60 L Hgb Hct MCV 98 H D RDW 13.1 L Plt Count Lymph % (Auto) Eddy % (Auto) Eddy # Seg Neutrophils % Seg Neuts % (Manual) Lymphocytes % (Manual) Monocytes % (Manual) Basophils % (Manual) Nucleated RBC % Seg Neutrophils # Seg Neutrophils # Man Lymphocytes # (Manual) Monocytes # (Manual) Eosinophils # (Manual) Basophils # (Manual) PT INR APTT Heparin Anti-Xa Level POC ABG pH POC ABG pCO2 POC ABG pO2 Sodium Potassium Chloride 110.7 H Carbon Dioxide 19 L BUN 38 H Creatinine 1.4 H Glucose 182 H POC Glucose 173 H Calcium 7.5 L Phosphorus Magnesium AST Alkaline Phosphatase C-Reactive Protein Total Protein Albumin Lipase Vitamin B12 TSH Urine WBC (Auto) Urine Chloride Urine Total Protein Vancomycin Trough Crossmatch 10/14/16 10/14/16 10/14/16 14:24 15:31 16:36 WBC RBC Hgb Hct MCV RDW Plt Count Lymph % (Auto) Eddy % (Auto) Eddy # Seg Neutrophils % Seg Neuts % (Manual) Lymphocytes % (Manual) Monocytes % (Manual) Basophils % (Manual) Nucleated RBC % Seg Neutrophils # Seg Neutrophils # Man Lymphocytes # (Manual) Monocytes # (Manual) Eosinophils # (Manual) Basophils # (Manual) PT INR APTT Heparin Anti-Xa Level POC ABG pH POC ABG pCO2 POC ABG pO2 Sodium Potassium Chloride Carbon Dioxide BUN Creatinine Glucose POC Glucose 123 H 124 H 156 H Calcium Phosphorus Magnesium AST Alkaline Phosphatase C-Reactive Protein Total Protein Albumin Lipase Vitamin B12 TSH Urine WBC (Auto) Urine Chloride Urine Total Protein Vancomycin Trough Crossmatch 10/14/16 10/14/16 10/14/16 17:43 19:00 20:08 WBC RBC Hgb Hct MCV RDW Plt Count Lymph % (Auto) Eddy % (Auto) Eddy # Seg Neutrophils % Seg Neuts % (Manual) Lymphocytes % (Manual) Monocytes % (Manual) Basophils % (Manual) Nucleated RBC % Seg Neutrophils # Seg Neutrophils # Man Lymphocytes # (Manual) Monocytes # (Manual) Eosinophils # (Manual) Basophils # (Manual) PT INR APTT Heparin Anti-Xa Level POC ABG pH POC ABG pCO2 POC ABG pO2 Sodium Potassium Chloride Carbon Dioxide BUN Creatinine Glucose POC Glucose 154 H 123 H 138 H Calcium Phosphorus Magnesium AST Alkaline Phosphatase C-Reactive Protein Total Protein Albumin Lipase Vitamin B12 TSH Urine WBC (Auto) Urine Chloride Urine Total Protein Vancomycin Trough Crossmatch 10/14/16 10/14/16 10/14/16 21:17 22:25 23:37 WBC RBC Hgb Hct MCV RDW Plt Count Lymph % (Auto) Eddy % (Auto) Eddy # Seg Neutrophils % Seg Neuts % (Manual) Lymphocytes % (Manual) Monocytes % (Manual) Basophils % (Manual) Nucleated RBC % Seg Neutrophils # Seg Neutrophils # Man Lymphocytes # (Manual) Monocytes # (Manual) Eosinophils # (Manual) Basophils # (Manual) PT INR APTT Heparin Anti-Xa Level POC ABG pH POC ABG pCO2 POC ABG pO2 Sodium Potassium Chloride Carbon Dioxide BUN Creatinine Glucose POC Glucose 148 H 132 H 137 H Calcium Phosphorus Magnesium AST Alkaline Phosphatase C-Reactive Protein Total Protein Albumin Lipase Vitamin B12 TSH Urine WBC (Auto) Urine Chloride Urine Total Protein Vancomycin Trough Crossmatch 10/15/16 10/15/16 10/15/16 00:49 01:53 03:06 WBC RBC Hgb Hct MCV RDW Plt Count Lymph % (Auto) Eddy % (Auto) Eddy # Seg Neutrophils % Seg Neuts % (Manual) Lymphocytes % (Manual) Monocytes % (Manual) Basophils % (Manual) Nucleated RBC % Seg Neutrophils # Seg Neutrophils # Man Lymphocytes # (Manual) Monocytes # (Manual) Eosinophils # (Manual) Basophils # (Manual) PT INR APTT Heparin Anti-Xa Level POC ABG pH POC ABG pCO2 POC ABG pO2 Sodium Potassium Chloride Carbon Dioxide BUN Creatinine Glucose POC Glucose 132 H 134 H 134 H Calcium Phosphorus Magnesium AST Alkaline Phosphatase C-Reactive Protein Total Protein Albumin Lipase Vitamin B12 TSH Urine WBC (Auto) Urine Chloride Urine Total Protein Vancomycin Trough Crossmatch 10/15/16 10/15/16 10/15/16 04:40 04:46 06:21 WBC RBC Hgb Hct MCV RDW Plt Count Lymph % (Auto) Eddy % (Auto) Eddy # Seg Neutrophils % Seg Neuts % (Manual) Lymphocytes % (Manual) Monocytes % (Manual) Basophils % (Manual) Nucleated RBC % Seg Neutrophils # Seg Neutrophils # Man Lymphocytes # (Manual) Monocytes # (Manual) Eosinophils # (Manual) Basophils # (Manual) PT INR APTT Heparin Anti-Xa Level POC ABG pH POC ABG pCO2 30.7 L POC ABG pO2 108 H Sodium Potassium Chloride 109.0 H Carbon Dioxide 17 L BUN 27 H Creatinine Glucose 124 H POC Glucose 160 H Calcium 7.5 L Phosphorus Magnesium AST 79 H Alkaline Phosphatase C-Reactive Protein Total Protein 5.5 L Albumin 3.0 L Lipase Vitamin B12 TSH Urine WBC (Auto) Urine Chloride Urine Total Protein Vancomycin Trough Crossmatch 10/15/16 10/15/16 10/15/16 07:12 08:01 09:03 WBC RBC Hgb Hct MCV RDW Plt Count Lymph % (Auto) Eddy % (Auto) Eddy # Seg Neutrophils % Seg Neuts % (Manual) Lymphocytes % (Manual) Monocytes % (Manual) Basophils % (Manual) Nucleated RBC % Seg Neutrophils # Seg Neutrophils # Man Lymphocytes # (Manual) Monocytes # (Manual) Eosinophils # (Manual) Basophils # (Manual) PT INR APTT Heparin Anti-Xa Level POC ABG pH POC ABG pCO2 POC ABG pO2 Sodium Potassium Chloride Carbon Dioxide BUN Creatinine Glucose POC Glucose 179 H 187 H 165 H Calcium Phosphorus Magnesium AST Alkaline Phosphatase C-Reactive Protein Total Protein Albumin Lipase Vitamin B12 TSH Urine WBC (Auto) Urine Chloride Urine Total Protein Vancomycin Trough Crossmatch 10/15/16 10/15/16 10/15/16 10:06 10:06 10:07 WBC 12.1 H RBC 3.01 L Hgb 9.7 L Hct 29.6 L MCV 98 H RDW Plt Count 129 L Lymph % (Auto) Eddy % (Auto) Eddy # Seg Neutrophils % Seg Neuts % (Manual) Lymphocytes % (Manual) Monocytes % (Manual) Basophils % (Manual) Nucleated RBC % Seg Neutrophils # Seg Neutrophils # Man Lymphocytes # (Manual) Monocytes # (Manual) Eosinophils # (Manual) Basophils # (Manual) PT INR APTT Heparin Anti-Xa Level POC ABG pH POC ABG pCO2 POC ABG pO2 Sodium Potassium 3.2 L D Chloride 109.6 H Carbon Dioxide 18 L BUN 22 H Creatinine Glucose 127 H POC Glucose 147 H Calcium 7.0 L Phosphorus Magnesium AST Alkaline Phosphatase C-Reactive Protein Total Protein Albumin Lipase Vitamin B12 TSH Urine WBC (Auto) Urine Chloride Urine Total Protein Vancomycin Trough Crossmatch 10/15/16 10/15/16 10/15/16 11:05 11:06 11:57 WBC RBC Hgb Hct MCV RDW Plt Count Lymph % (Auto) Eddy % (Auto) Eddy # Seg Neutrophils % Seg Neuts % (Manual) Lymphocytes % (Manual) Monocytes % (Manual) Basophils % (Manual) Nucleated RBC % Seg Neutrophils # Seg Neutrophils # Man Lymphocytes # (Manual) Monocytes # (Manual) Eosinophils # (Manual) Basophils # (Manual) PT INR APTT Heparin Anti-Xa Level POC ABG pH 7.305 L POC ABG pCO2 POC ABG pO2 Sodium Potassium Chloride Carbon Dioxide BUN Creatinine Glucose POC Glucose 145 H Calcium Phosphorus Magnesium AST Alkaline Phosphatase C-Reactive Protein Total Protein Albumin Lipase Vitamin B12 TSH Urine WBC (Auto) 7.0 H Urine Chloride Urine Total Protein Vancomycin Trough Crossmatch 10/15/16 10/15/16 10/15/16 12:04 13:59 15:24 WBC RBC Hgb Hct MCV RDW Plt Count Lymph % (Auto) Eddy % (Auto) Eddy # Seg Neutrophils % Seg Neuts % (Manual) Lymphocytes % (Manual) Monocytes % (Manual) Basophils % (Manual) Nucleated RBC % Seg Neutrophils # Seg Neutrophils # Man Lymphocytes # (Manual) Monocytes # (Manual) Eosinophils # (Manual) Basophils # (Manual) PT INR APTT Heparin Anti-Xa Level POC ABG pH POC ABG pCO2 POC ABG pO2 Sodium Potassium Chloride Carbon Dioxide BUN Creatinine Glucose POC Glucose 123 H 147 H 153 H Calcium Phosphorus Magnesium AST Alkaline Phosphatase C-Reactive Protein Total Protein Albumin Lipase Vitamin B12 TSH Urine WBC (Auto) Urine Chloride Urine Total Protein Vancomycin Trough Crossmatch 10/15/16 10/15/16 10/15/16 16:30 17:34 18:30 WBC RBC Hgb Hct MCV RDW Plt Count Lymph % (Auto) Eddy % (Auto) Eddy # Seg Neutrophils % Seg Neuts % (Manual) Lymphocytes % (Manual) Monocytes % (Manual) Basophils % (Manual) Nucleated RBC % Seg Neutrophils # Seg Neutrophils # Man Lymphocytes # (Manual) Monocytes # (Manual) Eosinophils # (Manual) Basophils # (Manual) PT INR APTT Heparin Anti-Xa Level POC ABG pH POC ABG pCO2 POC ABG pO2 Sodium Potassium Chloride Carbon Dioxide BUN Creatinine Glucose POC Glucose 223 H 236 H 164 H Calcium Phosphorus Magnesium AST Alkaline Phosphatase C-Reactive Protein Total Protein Albumin Lipase Vitamin B12 TSH Urine WBC (Auto) Urine Chloride Urine Total Protein Vancomycin Trough Crossmatch 10/15/16 10/15/16 10/15/16 19:14 20:31 21:23 WBC RBC Hgb Hct MCV RDW Plt Count Lymph % (Auto) Eddy % (Auto) Eddy # Seg Neutrophils % Seg Neuts % (Manual) Lymphocytes % (Manual) Monocytes % (Manual) Basophils % (Manual) Nucleated RBC % Seg Neutrophils # Seg Neutrophils # Man Lymphocytes # (Manual) Monocytes # (Manual) Eosinophils # (Manual) Basophils # (Manual) PT INR APTT Heparin Anti-Xa Level POC ABG pH POC ABG pCO2 POC ABG pO2 Sodium Potassium Chloride Carbon Dioxide BUN Creatinine Glucose POC Glucose 138 H 158 H 158 H Calcium Phosphorus Magnesium AST Alkaline Phosphatase C-Reactive Protein Total Protein Albumin Lipase Vitamin B12 TSH Urine WBC (Auto) Urine Chloride Urine Total Protein Vancomycin Trough Crossmatch 10/15/16 10/15/16 10/16/16 22:04 22:57 00:11 WBC RBC Hgb Hct MCV RDW Plt Count Lymph % (Auto) Eddy % (Auto) Eddy # Seg Neutrophils % Seg Neuts % (Manual) Lymphocytes % (Manual) Monocytes % (Manual) Basophils % (Manual) Nucleated RBC % Seg Neutrophils # Seg Neutrophils # Man Lymphocytes # (Manual) Monocytes # (Manual) Eosinophils # (Manual) Basophils # (Manual) PT INR APTT Heparin Anti-Xa Level POC ABG pH POC ABG pCO2 POC ABG pO2 Sodium Potassium Chloride Carbon Dioxide BUN Creatinine Glucose POC Glucose 168 H 213 H 166 H Calcium Phosphorus Magnesium AST Alkaline Phosphatase C-Reactive Protein Total Protein Albumin Lipase Vitamin B12 TSH Urine WBC (Auto) Urine Chloride Urine Total Protein Vancomycin Trough Crossmatch 10/16/16 10/16/16 10/16/16 01:16 02:32 03:38 WBC RBC Hgb Hct MCV RDW Plt Count Lymph % (Auto) Eddy % (Auto) Eddy # Seg Neutrophils % Seg Neuts % (Manual) Lymphocytes % (Manual) Monocytes % (Manual) Basophils % (Manual) Nucleated RBC % Seg Neutrophils # Seg Neutrophils # Man Lymphocytes # (Manual) Monocytes # (Manual) Eosinophils # (Manual) Basophils # (Manual) PT INR APTT Heparin Anti-Xa Level POC ABG pH POC ABG pCO2 POC ABG pO2 Sodium Potassium Chloride Carbon Dioxide BUN Creatinine Glucose POC Glucose 171 H 164 H 147 H Calcium Phosphorus Magnesium AST Alkaline Phosphatase C-Reactive Protein Total Protein Albumin Lipase Vitamin B12 TSH Urine WBC (Auto) Urine Chloride Urine Total Protein Vancomycin Trough Crossmatch 10/16/16 10/16/16 10/16/16 04:14 04:14 04:49 WBC RBC Hgb Hct MCV RDW Plt Count Lymph % (Auto) Eddy % (Auto) Eddy # Seg Neutrophils % Seg Neuts % (Manual) Lymphocytes % (Manual) Monocytes % (Manual) Basophils % (Manual) Nucleated RBC % Seg Neutrophils # Seg Neutrophils # Man Lymphocytes # (Manual) Monocytes # (Manual) Eosinophils # (Manual) Basophils # (Manual) PT INR APTT Heparin Anti-Xa Level POC ABG pH POC ABG pCO2 POC ABG pO2 Sodium 147 H Potassium Chloride 110.9 H Carbon Dioxide 19 L BUN Creatinine Glucose 139 H POC Glucose 144 H Calcium 7.3 L Phosphorus 2.3 L Magnesium AST Alkaline Phosphatase C-Reactive Protein Total Protein Albumin Lipase 143 H Vitamin B12 TSH Urine WBC (Auto) Urine Chloride Urine Total Protein Vancomycin Trough Crossmatch 10/16/16 10/16/16 10/16/16 05:03 05:41 05:58 WBC 16.5 H RBC 3.36 L Hgb Hct MCV 98 H RDW 13.1 L Plt Count Lymph % (Auto) 8.5 L Eddy % (Auto) 7.6 H Eddy # 1.3 H Seg Neutrophils % 83.3 H Seg Neuts % (Manual) Lymphocytes % (Manual) Monocytes % (Manual) Basophils % (Manual) Nucleated RBC % Seg Neutrophils # 13.8 H Seg Neutrophils # Man Lymphocytes # (Manual) Monocytes # (Manual) Eosinophils # (Manual) Basophils # (Manual) PT INR APTT Heparin Anti-Xa Level POC ABG pH POC ABG pCO2 30.7 L POC ABG pO2 128 H Sodium Potassium Chloride Carbon Dioxide BUN Creatinine Glucose POC Glucose 131 H Calcium Phosphorus Magnesium AST Alkaline Phosphatase C-Reactive Protein Total Protein Albumin Lipase Vitamin B12 TSH Urine WBC (Auto) Urine Chloride Urine Total Protein Vancomycin Trough Crossmatch 10/16/16 10/16/16 10/16/16 06:32 09:27 09:35 WBC RBC Hgb Hct MCV RDW Plt Count Lymph % (Auto) Eddy % (Auto) Eddy # Seg Neutrophils % Seg Neuts % (Manual) Lymphocytes % (Manual) Monocytes % (Manual) Basophils % (Manual) Nucleated RBC % Seg Neutrophils # Seg Neutrophils # Man Lymphocytes # (Manual) Monocytes # (Manual) Eosinophils # (Manual) Basophils # (Manual) PT INR APTT Heparin Anti-Xa Level POC ABG pH POC ABG pCO2 32.8 L POC ABG pO2 137 H Sodium Potassium Chloride Carbon Dioxide BUN Creatinine Glucose POC Glucose 121 H 150 H Calcium Phosphorus Magnesium AST Alkaline Phosphatase C-Reactive Protein Total Protein Albumin Lipase Vitamin B12 TSH Urine WBC (Auto) Urine Chloride Urine Total Protein Vancomycin Trough Crossmatch 10/16/16 10/16/16 10/16/16 10:47 13:27 14:24 WBC RBC Hgb Hct MCV RDW Plt Count Lymph % (Auto) Eddy % (Auto) Eddy # Seg Neutrophils % Seg Neuts % (Manual) Lymphocytes % (Manual) Monocytes % (Manual) Basophils % (Manual) Nucleated RBC % Seg Neutrophils # Seg Neutrophils # Man Lymphocytes # (Manual) Monocytes # (Manual) Eosinophils # (Manual) Basophils # (Manual) PT INR APTT Heparin Anti-Xa Level POC ABG pH POC ABG pCO2 POC ABG pO2 Sodium Potassium Chloride Carbon Dioxide BUN Creatinine Glucose POC Glucose 184 H 171 H 174 H Calcium Phosphorus Magnesium AST Alkaline Phosphatase C-Reactive Protein Total Protein Albumin Lipase Vitamin B12 TSH Urine WBC (Auto) Urine Chloride Urine Total Protein Vancomycin Trough Crossmatch 10/16/16 10/16/16 10/16/16 15:48 16:26 18:17 WBC RBC Hgb Hct MCV RDW Plt Count Lymph % (Auto) Eddy % (Auto) Eddy # Seg Neutrophils % Seg Neuts % (Manual) Lymphocytes % (Manual) Monocytes % (Manual) Basophils % (Manual) Nucleated RBC % Seg Neutrophils # Seg Neutrophils # Man Lymphocytes # (Manual) Monocytes # (Manual) Eosinophils # (Manual) Basophils # (Manual) PT INR APTT Heparin Anti-Xa Level POC ABG pH POC ABG pCO2 POC ABG pO2 Sodium Potassium Chloride Carbon Dioxide BUN Creatinine Glucose POC Glucose 205 H 204 H 234 H Calcium Phosphorus Magnesium AST Alkaline Phosphatase C-Reactive Protein Total Protein Albumin Lipase Vitamin B12 TSH Urine WBC (Auto) Urine Chloride Urine Total Protein Vancomycin Trough Crossmatch 10/16/16 10/16/16 10/16/16 19:40 20:33 21:36 WBC RBC Hgb Hct MCV RDW Plt Count Lymph % (Auto) Eddy % (Auto) Eddy # Seg Neutrophils % Seg Neuts % (Manual) Lymphocytes % (Manual) Monocytes % (Manual) Basophils % (Manual) Nucleated RBC % Seg Neutrophils # Seg Neutrophils # Man Lymphocytes # (Manual) Monocytes # (Manual) Eosinophils # (Manual) Basophils # (Manual) PT INR APTT Heparin Anti-Xa Level POC ABG pH POC ABG pCO2 POC ABG pO2 Sodium Potassium Chloride Carbon Dioxide BUN Creatinine Glucose POC Glucose 167 H 153 H 158 H Calcium Phosphorus Magnesium AST Alkaline Phosphatase C-Reactive Protein Total Protein Albumin Lipase Vitamin B12 TSH Urine WBC (Auto) Urine Chloride Urine Total Protein Vancomycin Trough Crossmatch 10/16/16 10/16/16 10/17/16 22:54 23:48 00:47 WBC RBC Hgb Hct MCV RDW Plt Count Lymph % (Auto) Eddy % (Auto) Eddy # Seg Neutrophils % Seg Neuts % (Manual) Lymphocytes % (Manual) Monocytes % (Manual) Basophils % (Manual) Nucleated RBC % Seg Neutrophils # Seg Neutrophils # Man Lymphocytes # (Manual) Monocytes # (Manual) Eosinophils # (Manual) Basophils # (Manual) PT INR APTT Heparin Anti-Xa Level POC ABG pH POC ABG pCO2 POC ABG pO2 Sodium Potassium Chloride Carbon Dioxide BUN Creatinine Glucose POC Glucose 180 H 207 H 196 H Calcium Phosphorus Magnesium AST Alkaline Phosphatase C-Reactive Protein Total Protein Albumin Lipase Vitamin B12 TSH Urine WBC (Auto) Urine Chloride Urine Total Protein Vancomycin Trough Crossmatch 10/17/16 10/17/16 10/17/16 01:57 02:49 03:50 WBC RBC Hgb Hct MCV RDW Plt Count Lymph % (Auto) Eddy % (Auto) Eddy # Seg Neutrophils % Seg Neuts % (Manual) Lymphocytes % (Manual) Monocytes % (Manual) Basophils % (Manual) Nucleated RBC % Seg Neutrophils # Seg Neutrophils # Man Lymphocytes # (Manual) Monocytes # (Manual) Eosinophils # (Manual) Basophils # (Manual) PT INR APTT Heparin Anti-Xa Level POC ABG pH POC ABG pCO2 POC ABG pO2 Sodium Potassium Chloride Carbon Dioxide BUN Creatinine Glucose POC Glucose 180 H 151 H 106 H Calcium Phosphorus Magnesium AST Alkaline Phosphatase C-Reactive Protein Total Protein Albumin Lipase Vitamin B12 TSH Urine WBC (Auto) Urine Chloride Urine Total Protein Vancomycin Trough Crossmatch 10/17/16 10/17/16 10/17/16 04:59 06:03 06:35 WBC RBC Hgb Hct MCV RDW Plt Count Lymph % (Auto) Eddy % (Auto) Eddy # Seg Neutrophils % Seg Neuts % (Manual) Lymphocytes % (Manual) Monocytes % (Manual) Basophils % (Manual) Nucleated RBC % Seg Neutrophils # Seg Neutrophils # Man Lymphocytes # (Manual) Monocytes # (Manual) Eosinophils # (Manual) Basophils # (Manual) PT INR APTT Heparin Anti-Xa Level POC ABG pH 7.453 H POC ABG pCO2 30.1 L POC ABG pO2 111 H Sodium Potassium Chloride Carbon Dioxide BUN Creatinine Glucose POC Glucose 145 H 157 H Calcium Phosphorus Magnesium AST Alkaline Phosphatase C-Reactive Protein Total Protein Albumin Lipase Vitamin B12 TSH Urine WBC (Auto) Urine Chloride Urine Total Protein Vancomycin Trough Crossmatch 10/17/16 10/17/16 10/17/16 07:08 07:11 08:01 WBC RBC Hgb Hct MCV RDW Plt Count Lymph % (Auto) Eddy % (Auto) Eddy # Seg Neutrophils % Seg Neuts % (Manual) Lymphocytes % (Manual) Monocytes % (Manual) Basophils % (Manual) Nucleated RBC % Seg Neutrophils # Seg Neutrophils # Man Lymphocytes # (Manual) Monocytes # (Manual) Eosinophils # (Manual) Basophils # (Manual) PT INR APTT Heparin Anti-Xa Level POC ABG pH POC ABG pCO2 POC ABG pO2 Sodium 147 H Potassium Chloride 113.8 H Carbon Dioxide 19 L BUN Creatinine Glucose 136 H POC Glucose 136 H 152 H Calcium 7.7 L Phosphorus Magnesium AST Alkaline Phosphatase C-Reactive Protein Total Protein Albumin Lipase Vitamin B12 TSH Urine WBC (Auto) Urine Chloride Urine Total Protein Vancomycin Trough Crossmatch 10/17/16 10/17/16 10/17/16 08:23 09:17 09:53 WBC 18.1 H RBC 3.01 L Hgb 9.7 L Hct 29.4 L MCV 98 H RDW Plt Count 116 L Lymph % (Auto) Eddy % (Auto) Eddy # Seg Neutrophils % Seg Neuts % (Manual) 77.0 H Lymphocytes % (Manual) 4.0 L Monocytes % (Manual) 12.0 H Basophils % (Manual) Nucleated RBC % Seg Neutrophils # Seg Neutrophils # Man 13.9 H Lymphocytes # (Manual) 0.7 L Monocytes # (Manual) 2.2 H Eosinophils # (Manual) Basophils # (Manual) PT INR APTT Heparin Anti-Xa Level POC ABG pH POC ABG pCO2 POC ABG pO2 Sodium Potassium Chloride Carbon Dioxide BUN Creatinine Glucose POC Glucose 148 H 137 H Calcium Phosphorus Magnesium AST Alkaline Phosphatase C-Reactive Protein Total Protein Albumin Lipase Vitamin B12 TSH Urine WBC (Auto) Urine Chloride Urine Total Protein Vancomycin Trough Crossmatch 10/17/16 10/17/16 10/17/16 11:43 16:07 17:42 WBC RBC Hgb Hct MCV RDW Plt Count Lymph % (Auto) Eddy % (Auto) Eddy # Seg Neutrophils % Seg Neuts % (Manual) Lymphocytes % (Manual) Monocytes % (Manual) Basophils % (Manual) Nucleated RBC % Seg Neutrophils # Seg Neutrophils # Man Lymphocytes # (Manual) Monocytes # (Manual) Eosinophils # (Manual) Basophils # (Manual) PT 16.4 H INR 1.33 H APTT 38.8 H Heparin Anti-Xa Level POC ABG pH POC ABG pCO2 POC ABG pO2 Sodium Potassium Chloride Carbon Dioxide BUN Creatinine Glucose POC Glucose 179 H 153 H Calcium Phosphorus Magnesium AST Alkaline Phosphatase C-Reactive Protein Total Protein Albumin Lipase Vitamin B12 TSH Urine WBC (Auto) Urine Chloride Urine Total Protein Vancomycin Trough Crossmatch 10/17/16 10/18/16 10/18/16 22:54 04:37 05:39 WBC RBC Hgb Hct MCV RDW Plt Count Lymph % (Auto) Eddy % (Auto) Eddy # Seg Neutrophils % Seg Neuts % (Manual) Lymphocytes % (Manual) Monocytes % (Manual) Basophils % (Manual) Nucleated RBC % Seg Neutrophils # Seg Neutrophils # Man Lymphocytes # (Manual) Monocytes # (Manual) Eosinophils # (Manual) Basophils # (Manual) PT INR APTT Heparin Anti-Xa Level 0.27 L POC ABG pH 7.454 H POC ABG pCO2 30.8 L POC ABG pO2 115 H Sodium Potassium Chloride Carbon Dioxide BUN Creatinine Glucose POC Glucose 69 L Calcium Phosphorus Magnesium AST Alkaline Phosphatase C-Reactive Protein Total Protein Albumin Lipase Vitamin B12 TSH Urine WBC (Auto) Urine Chloride Urine Total Protein Vancomycin Trough Crossmatch 10/18/16 10/18/16 10/18/16 06:46 06:46 06:46 WBC 20.5 H RBC 2.62 L Hgb 8.4 L Hct 26.0 L MCV 100 H RDW Plt Count Lymph % (Auto) Eddy % (Auto) Eddy # Seg Neutrophils % Seg Neuts % (Manual) 75.0 H Lymphocytes % (Manual) 9.0 L Monocytes % (Manual) 14.0 H Basophils % (Manual) Nucleated RBC % Seg Neutrophils # Seg Neutrophils # Man 15.4 H Lymphocytes # (Manual) Monocytes # (Manual) 2.9 H Eosinophils # (Manual) Basophils # (Manual) PT INR APTT Heparin Anti-Xa Level POC ABG pH POC ABG pCO2 POC ABG pO2 Sodium Potassium Chloride 110.6 H Carbon Dioxide BUN Creatinine 1.3 H Glucose 153 H POC Glucose Calcium 8.0 L Phosphorus Magnesium 1.6 L AST Alkaline Phosphatase C-Reactive Protein Total Protein Albumin Lipase Vitamin B12 TSH Urine WBC (Auto) Urine Chloride Urine Total Protein Vancomycin Trough Crossmatch 10/18/16 10/18/16 10/18/16 07:30 11:37 17:51 WBC RBC Hgb Hct MCV RDW Plt Count Lymph % (Auto) Eddy % (Auto) Eddy # Seg Neutrophils % Seg Neuts % (Manual) Lymphocytes % (Manual) Monocytes % (Manual) Basophils % (Manual) Nucleated RBC % Seg Neutrophils # Seg Neutrophils # Man Lymphocytes # (Manual) Monocytes # (Manual) Eosinophils # (Manual) Basophils # (Manual) PT INR APTT Heparin Anti-Xa Level POC ABG pH POC ABG pCO2 POC ABG pO2 Sodium Potassium Chloride Carbon Dioxide BUN Creatinine Glucose POC Glucose 162 H 156 H 164 H Calcium Phosphorus Magnesium AST Alkaline Phosphatase C-Reactive Protein Total Protein Albumin Lipase Vitamin B12 TSH Urine WBC (Auto) Urine Chloride Urine Total Protein Vancomycin Trough Crossmatch 10/18/16 10/19/16 10/19/16 23:44 03:59 05:13 WBC 18.2 H RBC 2.76 L Hgb 9.0 L Hct 27.7 L MCV 100 H RDW Plt Count Lymph % (Auto) Eddy % (Auto) Eddy # Seg Neutrophils % Seg Neuts % (Manual) 76.0 H Lymphocytes % (Manual) 10.0 L Monocytes % (Manual) Basophils % (Manual) Nucleated RBC % Seg Neutrophils # Seg Neutrophils # Man 13.8 H Lymphocytes # (Manual) Monocytes # (Manual) Eosinophils # (Manual) Basophils # (Manual) PT INR APTT Heparin Anti-Xa Level POC ABG pH POC ABG pCO2 32.2 L POC ABG pO2 128 H Sodium Potassium Chloride Carbon Dioxide BUN Creatinine Glucose POC Glucose 278 H Calcium Phosphorus Magnesium AST Alkaline Phosphatase C-Reactive Protein Total Protein Albumin Lipase Vitamin B12 TSH Urine WBC (Auto) Urine Chloride Urine Total Protein Vancomycin Trough Crossmatch 10/19/16 10/19/16 10/19/16 06:01 06:30 12:20 WBC RBC Hgb Hct MCV RDW Plt Count Lymph % (Auto) Eddy % (Auto) Eddy # Seg Neutrophils % Seg Neuts % (Manual) Lymphocytes % (Manual) Monocytes % (Manual) Basophils % (Manual) Nucleated RBC % Seg Neutrophils # Seg Neutrophils # Man Lymphocytes # (Manual) Monocytes # (Manual) Eosinophils # (Manual) Basophils # (Manual) PT INR APTT Heparin Anti-Xa Level POC ABG pH POC ABG pCO2 POC ABG pO2 Sodium Potassium Chloride Carbon Dioxide 18 L BUN Creatinine 1.3 H Glucose 262 H POC Glucose 261 H 349 H Calcium 7.7 L Phosphorus 4.8 H D Magnesium AST Alkaline Phosphatase C-Reactive Protein Total Protein Albumin Lipase Vitamin B12 TSH Urine WBC (Auto) Urine Chloride Urine Total Protein Vancomycin Trough Crossmatch 10/19/16 10/20/16 10/20/16 16:48 00:17 05:20 WBC 22.5 H RBC 2.80 L Hgb 8.9 L Hct 28.3 L MCV 101 H RDW Plt Count Lymph % (Auto) Eddy % (Auto) Eddy # Seg Neutrophils % Seg Neuts % (Manual) Lymphocytes % (Manual) 10.0 L Monocytes % (Manual) Basophils % (Manual) Nucleated RBC % Seg Neutrophils # Seg Neutrophils # Man 13.3 H Lymphocytes # (Manual) Monocytes # (Manual) 1.1 H Eosinophils # (Manual) 0.7 H Basophils # (Manual) PT INR APTT Heparin Anti-Xa Level POC ABG pH POC ABG pCO2 POC ABG pO2 Sodium Potassium Chloride Carbon Dioxide BUN Creatinine Glucose POC Glucose 248 H 346 H Calcium Phosphorus Magnesium AST Alkaline Phosphatase C-Reactive Protein Total Protein Albumin Lipase Vitamin B12 TSH Urine WBC (Auto) Urine Chloride Urine Total Protein Vancomycin Trough Crossmatch 10/20/16 10/20/16 10/20/16 05:20 05:20 06:05 WBC RBC Hgb Hct MCV RDW Plt Count Lymph % (Auto) Eddy % (Auto) Eddy # Seg Neutrophils % Seg Neuts % (Manual) Lymphocytes % (Manual) Monocytes % (Manual) Basophils % (Manual) Nucleated RBC % Seg Neutrophils # Seg Neutrophils # Man Lymphocytes # (Manual) Monocytes # (Manual) Eosinophils # (Manual) Basophils # (Manual) PT INR APTT Heparin Anti-Xa Level 0.20 L POC ABG pH POC ABG pCO2 POC ABG pO2 Sodium Potassium Chloride Carbon Dioxide BUN 20 H Creatinine Glucose 374 H POC Glucose 337 H Calcium 8.3 L Phosphorus Magnesium AST Alkaline Phosphatase C-Reactive Protein Total Protein Albumin Lipase Vitamin B12 TSH Urine WBC (Auto) Urine Chloride Urine Total Protein Vancomycin Trough Crossmatch 10/20/16 10/20/16 10/20/16 11:49 13:59 17:56 WBC RBC Hgb Hct MCV RDW Plt Count Lymph % (Auto) Eddy % (Auto) Eddy # Seg Neutrophils % Seg Neuts % (Manual) Lymphocytes % (Manual) Monocytes % (Manual) Basophils % (Manual) Nucleated RBC % Seg Neutrophils # Seg Neutrophils # Man Lymphocytes # (Manual) Monocytes # (Manual) Eosinophils # (Manual) Basophils # (Manual) PT INR APTT Heparin Anti-Xa Level 2.00 H POC ABG pH POC ABG pCO2 POC ABG pO2 Sodium Potassium Chloride Carbon Dioxide BUN Creatinine Glucose POC Glucose 305 H 362 H Calcium Phosphorus Magnesium AST Alkaline Phosphatase C-Reactive Protein Total Protein Albumin Lipase Vitamin B12 TSH Urine WBC (Auto) Urine Chloride Urine Total Protein Vancomycin Trough Crossmatch 10/20/16 10/21/16 10/21/16 23:52 05:00 05:49 WBC 22.9 H RBC 2.49 L Hgb 7.7 L Hct 25.6 L MCV 103 H RDW Plt Count Lymph % (Auto) Eddy % (Auto) Eddy # Seg Neutrophils % Seg Neuts % (Manual) 94.0 H Lymphocytes % (Manual) 1.0 L Monocytes % (Manual) Basophils % (Manual) Nucleated RBC % Seg Neutrophils # Seg Neutrophils # Man 21.5 H Lymphocytes # (Manual) 0.2 L Monocytes # (Manual) 1.1 H Eosinophils # (Manual) Basophils # (Manual) PT INR APTT Heparin Anti-Xa Level POC ABG pH POC ABG pCO2 POC ABG pO2 Sodium Potassium Chloride Carbon Dioxide BUN Creatinine Glucose POC Glucose 252 H 180 H Calcium Phosphorus Magnesium AST Alkaline Phosphatase C-Reactive Protein Total Protein Albumin Lipase Vitamin B12 TSH Urine WBC (Auto) Urine Chloride Urine Total Protein Vancomycin Trough Crossmatch 10/21/16 10/21/16 10/21/16 11:47 11:49 14:10 WBC RBC Hgb Hct MCV RDW Plt Count Lymph % (Auto) Eddy % (Auto) Eddy # Seg Neutrophils % Seg Neuts % (Manual) Lymphocytes % (Manual) Monocytes % (Manual) Basophils % (Manual) Nucleated RBC % Seg Neutrophils # Seg Neutrophils # Man Lymphocytes # (Manual) Monocytes # (Manual) Eosinophils # (Manual) Basophils # (Manual) PT INR APTT Heparin Anti-Xa Level POC ABG pH POC ABG pCO2 POC ABG pO2 Sodium Potassium Chloride Carbon Dioxide BUN Creatinine Glucose POC Glucose 50 L 56 L 140 H Calcium Phosphorus Magnesium AST Alkaline Phosphatase C-Reactive Protein Total Protein Albumin Lipase Vitamin B12 TSH Urine WBC (Auto) Urine Chloride Urine Total Protein Vancomycin Trough Crossmatch 10/21/16 10/21/16 10/22/16 18:24 Unknown 00:07 WBC RBC Hgb Hct MCV RDW Plt Count Lymph % (Auto) Eddy % (Auto) Eddy # Seg Neutrophils % Seg Neuts % (Manual) Lymphocytes % (Manual) Monocytes % (Manual) Basophils % (Manual) Nucleated RBC % Seg Neutrophils # Seg Neutrophils # Man Lymphocytes # (Manual) Monocytes # (Manual) Eosinophils # (Manual) Basophils # (Manual) PT INR APTT Heparin Anti-Xa Level POC ABG pH POC ABG pCO2 POC ABG pO2 Sodium 150 H Potassium 3.1 L Chloride 112.4 H Carbon Dioxide BUN 25 H Creatinine 1.4 H Glucose POC Glucose 175 H 218 H Calcium 8.0 L Phosphorus Magnesium AST Alkaline Phosphatase C-Reactive Protein Total Protein Albumin Lipase Vitamin B12 TSH Urine WBC (Auto) Urine Chloride Urine Total Protein Vancomycin Trough Crossmatch 10/22/16 10/22/16 10/22/16 04:20 04:20 10:25 WBC 20.8 H RBC 2.37 L Hgb 7.5 L Hct 23.9 L MCV 101 H RDW Plt Count Lymph % (Auto) Eddy % (Auto) Eddy # Seg Neutrophils % Seg Neuts % (Manual) 89.0 H Lymphocytes % (Manual) 7.0 L Monocytes % (Manual) Basophils % (Manual) Nucleated RBC % Seg Neutrophils # Seg Neutrophils # Man 18.5 H Lymphocytes # (Manual) Monocytes # (Manual) Eosinophils # (Manual) Basophils # (Manual) 0.2 H PT INR APTT Heparin Anti-Xa Level POC ABG pH POC ABG pCO2 POC ABG pO2 Sodium 148 H Potassium 2.9 L* Chloride 109.4 H Carbon Dioxide BUN 26 H Creatinine Glucose 140 H POC Glucose Calcium 7.5 L Phosphorus Magnesium AST Alkaline Phosphatase C-Reactive Protein Total Protein Albumin Lipase Vitamin B12 976.8 H TSH Urine WBC (Auto) Urine Chloride Urine Total Protein Vancomycin Trough Crossmatch 10/22/16 10/22/16 10/22/16 10:25 14:50 18:16 WBC RBC Hgb Hct MCV RDW Plt Count Lymph % (Auto) Eddy % (Auto) Eddy # Seg Neutrophils % Seg Neuts % (Manual) Lymphocytes % (Manual) Monocytes % (Manual) Basophils % (Manual) Nucleated RBC % Seg Neutrophils # Seg Neutrophils # Man Lymphocytes # (Manual) Monocytes # (Manual) Eosinophils # (Manual) Basophils # (Manual) PT INR APTT Heparin Anti-Xa Level POC ABG pH POC ABG pCO2 POC ABG pO2 Sodium Potassium Chloride Carbon Dioxide BUN Creatinine Glucose POC Glucose 193 H Calcium Phosphorus Magnesium AST Alkaline Phosphatase C-Reactive Protein Total Protein Albumin Lipase Vitamin B12 TSH 0.143 L 0.162 L Urine WBC (Auto) Urine Chloride Urine Total Protein Vancomycin Trough Crossmatch 10/22/16 10/22/16 10/22/16 20:00 20:00 20:00 WBC 24.1 H RBC 2.58 L Hgb 8.2 L Hct 26.4 L MCV 102 H RDW Plt Count Lymph % (Auto) Eddy % (Auto) Eddy # Seg Neutrophils % Seg Neuts % (Manual) 74.0 H Lymphocytes % (Manual) 7.0 L Monocytes % (Manual) Basophils % (Manual) Nucleated RBC % Seg Neutrophils # Seg Neutrophils # Man 17.8 H Lymphocytes # (Manual) Monocytes # (Manual) Eosinophils # (Manual) Basophils # (Manual) PT INR APTT Heparin Anti-Xa Level 1.92 H POC ABG pH POC ABG pCO2 POC ABG pO2 Sodium Potassium Chloride Carbon Dioxide BUN Creatinine Glucose POC Glucose Calcium Phosphorus Magnesium AST Alkaline Phosphatase C-Reactive Protein Total Protein Albumin Lipase Vitamin B12 TSH Urine WBC (Auto) Urine Chloride Urine Total Protein Vancomycin Trough Crossmatch See Detail 10/23/16 10/23/16 10/23/16 00:21 06:09 12:07 WBC RBC Hgb Hct MCV RDW Plt Count Lymph % (Auto) Eddy % (Auto) Eddy # Seg Neutrophils % Seg Neuts % (Manual) Lymphocytes % (Manual) Monocytes % (Manual) Basophils % (Manual) Nucleated RBC % Seg Neutrophils # Seg Neutrophils # Man Lymphocytes # (Manual) Monocytes # (Manual) Eosinophils # (Manual) Basophils # (Manual) PT INR APTT Heparin Anti-Xa Level POC ABG pH POC ABG pCO2 POC ABG pO2 Sodium Potassium Chloride Carbon Dioxide BUN Creatinine Glucose POC Glucose 283 H 241 H 340 H Calcium Phosphorus Magnesium AST Alkaline Phosphatase C-Reactive Protein Total Protein Albumin Lipase Vitamin B12 TSH Urine WBC (Auto) Urine Chloride Urine Total Protein Vancomycin Trough Crossmatch 10/23/16 10/23/16 10/23/16 14:01 16:00 17:59 WBC RBC Hgb Hct MCV RDW Plt Count Lymph % (Auto) Eddy % (Auto) Eddy # Seg Neutrophils % Seg Neuts % (Manual) Lymphocytes % (Manual) Monocytes % (Manual) Basophils % (Manual) Nucleated RBC % Seg Neutrophils # Seg Neutrophils # Man Lymphocytes # (Manual) Monocytes # (Manual) Eosinophils # (Manual) Basophils # (Manual) PT INR APTT Heparin Anti-Xa Level 0.19 L POC ABG pH POC ABG pCO2 32.4 L POC ABG pO2 Sodium Potassium Chloride Carbon Dioxide BUN Creatinine Glucose POC Glucose 245 H Calcium Phosphorus Magnesium AST Alkaline Phosphatase C-Reactive Protein Total Protein Albumin Lipase Vitamin B12 TSH Urine WBC (Auto) Urine Chloride Urine Total Protein Vancomycin Trough Crossmatch 10/23/16 10/23/16 10/23/16 22:55 Unknown Unknown WBC 22.6 H RBC 3.26 L Hgb Hct MCV RDW 17.1 H Plt Count Lymph % (Auto) Eddy % (Auto) Eddy # Seg Neutrophils % Seg Neuts % (Manual) Lymphocytes % (Manual) 11.0 L Monocytes % (Manual) Basophils % (Manual) Nucleated RBC % Seg Neutrophils # Seg Neutrophils # Man 14.0 H Lymphocytes # (Manual) Monocytes # (Manual) Eosinophils # (Manual) Basophils # (Manual) PT INR APTT Heparin Anti-Xa Level 0.17 L 0.15 L POC ABG pH POC ABG pCO2 POC ABG pO2 Sodium Potassium Chloride Carbon Dioxide BUN Creatinine Glucose POC Glucose Calcium Phosphorus Magnesium AST Alkaline Phosphatase C-Reactive Protein Total Protein Albumin Lipase Vitamin B12 TSH Urine WBC (Auto) Urine Chloride Urine Total Protein Vancomycin Trough Crossmatch 10/23/16 10/24/16 10/24/16 Unknown 00:05 05:30 WBC RBC Hgb Hct MCV RDW Plt Count Lymph % (Auto) Eddy % (Auto) Eddy # Seg Neutrophils % Seg Neuts % (Manual) Lymphocytes % (Manual) Monocytes % (Manual) Basophils % (Manual) Nucleated RBC % Seg Neutrophils # Seg Neutrophils # Man Lymphocytes # (Manual) Monocytes # (Manual) Eosinophils # (Manual) Basophils # (Manual) PT INR APTT Heparin Anti-Xa Level 0.13 L POC ABG pH POC ABG pCO2 POC ABG pO2 Sodium Potassium Chloride 111.2 H Carbon Dioxide 20 L BUN 25 H Creatinine Glucose 227 H POC Glucose 118 H Calcium 7.1 L Phosphorus Magnesium AST Alkaline Phosphatase C-Reactive Protein Total Protein Albumin Lipase Vitamin B12 TSH Urine WBC (Auto) Urine Chloride Urine Total Protein Vancomycin Trough Crossmatch 10/24/16 10/24/16 10/24/16 11:00 11:00 12:06 WBC 17.6 H RBC 2.92 L Hgb 9.2 L Hct 28.3 L MCV RDW 16.9 H Plt Count Lymph % (Auto) Eddy % (Auto) Eddy # Seg Neutrophils % Seg Neuts % (Manual) Lymphocytes % (Manual) Monocytes % (Manual) Basophils % (Manual) Nucleated RBC % Seg Neutrophils # Seg Neutrophils # Man Lymphocytes # (Manual) Monocytes # (Manual) Eosinophils # (Manual) Basophils # (Manual) PT INR APTT Heparin Anti-Xa Level 0.27 L POC ABG pH POC ABG pCO2 POC ABG pO2 Sodium Potassium Chloride Carbon Dioxide BUN Creatinine Glucose POC Glucose 166 H Calcium Phosphorus Magnesium AST Alkaline Phosphatase C-Reactive Protein Total Protein Albumin Lipase Vitamin B12 TSH Urine WBC (Auto) Urine Chloride Urine Total Protein Vancomycin Trough Crossmatch 10/24/16 10/25/16 10/25/16 12:27 00:49 03:30 WBC RBC Hgb 8.8 L Hct 28.1 L MCV RDW Plt Count Lymph % (Auto) Eddy % (Auto) Eddy # Seg Neutrophils % Seg Neuts % (Manual) Lymphocytes % (Manual) Monocytes % (Manual) Basophils % (Manual) Nucleated RBC % Seg Neutrophils # Seg Neutrophils # Man Lymphocytes # (Manual) Monocytes # (Manual) Eosinophils # (Manual) Basophils # (Manual) PT INR APTT Heparin Anti-Xa Level POC ABG pH POC ABG pCO2 33.9 L POC ABG pO2 Sodium Potassium Chloride Carbon Dioxide BUN Creatinine Glucose POC Glucose 121 H Calcium Phosphorus Magnesium AST Alkaline Phosphatase C-Reactive Protein Total Protein Albumin Lipase Vitamin B12 TSH Urine WBC (Auto) Urine Chloride Urine Total Protein Vancomycin Trough Crossmatch 10/25/16 10/25/16 10/25/16 09:49 12:10 19:25 WBC 21.1 H RBC 3.02 L Hgb 9.3 L Hct 28.9 L MCV RDW 16.3 H Plt Count Lymph % (Auto) Eddy % (Auto) Eddy # Seg Neutrophils % Seg Neuts % (Manual) 81.0 H Lymphocytes % (Manual) 9.0 L Monocytes % (Manual) Basophils % (Manual) Nucleated RBC % Seg Neutrophils # Seg Neutrophils # Man 17.1 H Lymphocytes # (Manual) Monocytes # (Manual) Eosinophils # (Manual) Basophils # (Manual) PT INR APTT Heparin Anti-Xa Level POC ABG pH POC ABG pCO2 POC ABG pO2 Sodium Potassium Chloride Carbon Dioxide BUN Creatinine Glucose POC Glucose 158 H 151 H Calcium Phosphorus Magnesium AST Alkaline Phosphatase C-Reactive Protein Total Protein Albumin Lipase Vitamin B12 TSH Urine WBC (Auto) Urine Chloride Urine Total Protein Vancomycin Trough Crossmatch 10/26/16 10/26/16 10/26/16 00:20 01:09 05:02 WBC 22.2 H RBC 2.89 L Hgb 8.7 L Hct 27.8 L MCV RDW 16.4 H Plt Count Lymph % (Auto) Eddy % (Auto) Eddy # Seg Neutrophils % Seg Neuts % (Manual) Lymphocytes % (Manual) Monocytes % (Manual) Basophils % (Manual) Nucleated RBC % Seg Neutrophils # Seg Neutrophils # Man Lymphocytes # (Manual) Monocytes # (Manual) Eosinophils # (Manual) Basophils # (Manual) PT INR APTT Heparin Anti-Xa Level POC ABG pH POC ABG pCO2 POC ABG pO2 Sodium Potassium Chloride Carbon Dioxide BUN Creatinine Glucose POC Glucose 44 L 112 H Calcium Phosphorus Magnesium AST Alkaline Phosphatase C-Reactive Protein Total Protein Albumin Lipase Vitamin B12 TSH Urine WBC (Auto) Urine Chloride Urine Total Protein Vancomycin Trough Crossmatch 10/26/16 10/26/16 10/26/16 05:02 12:11 12:14 WBC RBC Hgb Hct MCV RDW Plt Count Lymph % (Auto) Eddy % (Auto) Eddy # Seg Neutrophils % Seg Neuts % (Manual) Lymphocytes % (Manual) Monocytes % (Manual) Basophils % (Manual) Nucleated RBC % Seg Neutrophils # Seg Neutrophils # Man Lymphocytes # (Manual) Monocytes # (Manual) Eosinophils # (Manual) Basophils # (Manual) PT INR APTT Heparin Anti-Xa Level POC ABG pH POC ABG pCO2 32.0 L POC ABG pO2 33 L Sodium Potassium 3.2 L D Chloride Carbon Dioxide 20 L BUN 24 H Creatinine Glucose 104 H POC Glucose 194 H Calcium 7.7 L Phosphorus Magnesium AST Alkaline Phosphatase C-Reactive Protein Total Protein Albumin Lipase Vitamin B12 TSH Urine WBC (Auto) Urine Chloride Urine Total Protein Vancomycin Trough Crossmatch 10/26/16 10/26/16 10/27/16 15:28 17:23 00:04 WBC RBC Hgb Hct MCV RDW Plt Count Lymph % (Auto) Eddy % (Auto) Eddy # Seg Neutrophils % Seg Neuts % (Manual) Lymphocytes % (Manual) Monocytes % (Manual) Basophils % (Manual) Nucleated RBC % Seg Neutrophils # Seg Neutrophils # Man Lymphocytes # (Manual) Monocytes # (Manual) Eosinophils # (Manual) Basophils # (Manual) PT INR APTT Heparin Anti-Xa Level POC ABG pH POC ABG pCO2 33.7 L POC ABG pO2 Sodium Potassium Chloride Carbon Dioxide BUN Creatinine Glucose POC Glucose 181 H 230 H Calcium Phosphorus Magnesium AST Alkaline Phosphatase C-Reactive Protein Total Protein Albumin Lipase Vitamin B12 TSH Urine WBC (Auto) Urine Chloride Urine Total Protein Vancomycin Trough Crossmatch 10/27/16 10/27/16 10/27/16 05:15 05:15 05:38 WBC 25.5 H RBC 3.07 L Hgb 9.4 L Hct 30.1 L MCV 98 H RDW 16.4 H Plt Count 527 H Lymph % (Auto) Eddy % (Auto) Eddy # Seg Neutrophils % Seg Neuts % (Manual) Lymphocytes % (Manual) Monocytes % (Manual) Basophils % (Manual) Nucleated RBC % Seg Neutrophils # Seg Neutrophils # Man Lymphocytes # (Manual) Monocytes # (Manual) Eosinophils # (Manual) Basophils # (Manual) PT INR APTT Heparin Anti-Xa Level POC ABG pH POC ABG pCO2 POC ABG pO2 Sodium Potassium Chloride Carbon Dioxide 19 L BUN 23 H Creatinine Glucose 160 H POC Glucose 168 H Calcium 8.0 L Phosphorus Magnesium AST Alkaline Phosphatase C-Reactive Protein Total Protein Albumin Lipase Vitamin B12 TSH Urine WBC (Auto) Urine Chloride Urine Total Protein Vancomycin Trough Crossmatch 10/27/16 10/27/16 10/27/16 11:59 18:35 23:48 WBC RBC Hgb Hct MCV RDW Plt Count Lymph % (Auto) Eddy % (Auto) Eddy # Seg Neutrophils % Seg Neuts % (Manual) Lymphocytes % (Manual) Monocytes % (Manual) Basophils % (Manual) Nucleated RBC % Seg Neutrophils # Seg Neutrophils # Man Lymphocytes # (Manual) Monocytes # (Manual) Eosinophils # (Manual) Basophils # (Manual) PT INR APTT Heparin Anti-Xa Level POC ABG pH POC ABG pCO2 POC ABG pO2 Sodium Potassium Chloride Carbon Dioxide BUN Creatinine Glucose POC Glucose 197 H 318 H 316 H Calcium Phosphorus Magnesium AST Alkaline Phosphatase C-Reactive Protein Total Protein Albumin Lipase Vitamin B12 TSH Urine WBC (Auto) Urine Chloride Urine Total Protein Vancomycin Trough Crossmatch 10/28/16 10/28/16 10/28/16 03:13 04:10 04:10 WBC 18.8 H RBC 2.64 L Hgb 8.1 L Hct 26.1 L MCV 99 H RDW 16.2 H Plt Count 544 H Lymph % (Auto) Eddy % (Auto) Eddy # Seg Neutrophils % Seg Neuts % (Manual) Lymphocytes % (Manual) Monocytes % (Manual) Basophils % (Manual) Nucleated RBC % Seg Neutrophils # Seg Neutrophils # Man Lymphocytes # (Manual) Monocytes # (Manual) Eosinophils # (Manual) Basophils # (Manual) PT INR APTT Heparin Anti-Xa Level POC ABG pH POC ABG pCO2 POC ABG pO2 Sodium Potassium Chloride Carbon Dioxide 21 L BUN 24 H Creatinine Glucose 302 H POC Glucose 304 H Calcium 7.7 L Phosphorus Magnesium AST Alkaline Phosphatase C-Reactive Protein Total Protein Albumin Lipase Vitamin B12 TSH Urine WBC (Auto) Urine Chloride Urine Total Protein Vancomycin Trough Crossmatch 10/28/16 10/28/16 10/28/16 04:10 12:36 18:27 WBC RBC Hgb Hct MCV RDW Plt Count Lymph % (Auto) Eddy % (Auto) Eddy # Seg Neutrophils % Seg Neuts % (Manual) Lymphocytes % (Manual) Monocytes % (Manual) Basophils % (Manual) Nucleated RBC % Seg Neutrophils # Seg Neutrophils # Man Lymphocytes # (Manual) Monocytes # (Manual) Eosinophils # (Manual) Basophils # (Manual) PT INR APTT Heparin Anti-Xa Level 0.20 L POC ABG pH POC ABG pCO2 POC ABG pO2 Sodium Potassium Chloride Carbon Dioxide BUN Creatinine Glucose POC Glucose 205 H 339 H Calcium Phosphorus Magnesium AST Alkaline Phosphatase C-Reactive Protein Total Protein Albumin Lipase Vitamin B12 TSH Urine WBC (Auto) Urine Chloride Urine Total Protein Vancomycin Trough Crossmatch 10/29/16 10/29/16 10/29/16 01:05 06:19 09:30 WBC 20.3 H RBC 2.80 L Hgb 8.5 L Hct 26.7 L MCV RDW 15.4 H Plt Count 571 H Lymph % (Auto) Eddy % (Auto) Eddy # Seg Neutrophils % Seg Neuts % (Manual) 75.0 H Lymphocytes % (Manual) 4.0 L Monocytes % (Manual) Basophils % (Manual) Nucleated RBC % Seg Neutrophils # Seg Neutrophils # Man 15.2 H Lymphocytes # (Manual) 0.8 L Monocytes # (Manual) Eosinophils # (Manual) Basophils # (Manual) PT INR APTT Heparin Anti-Xa Level POC ABG pH POC ABG pCO2 POC ABG pO2 Sodium Potassium Chloride Carbon Dioxide BUN Creatinine Glucose POC Glucose 275 H 179 H Calcium Phosphorus Magnesium AST Alkaline Phosphatase C-Reactive Protein Total Protein Albumin Lipase Vitamin B12 TSH Urine WBC (Auto) Urine Chloride Urine Total Protein Vancomycin Trough Crossmatch 10/29/16 10/29/16 10/29/16 11:46 15:18 17:55 WBC RBC Hgb Hct MCV RDW Plt Count Lymph % (Auto) Eddy % (Auto) Eddy # Seg Neutrophils % Seg Neuts % (Manual) Lymphocytes % (Manual) Monocytes % (Manual) Basophils % (Manual) Nucleated RBC % Seg Neutrophils # Seg Neutrophils # Man Lymphocytes # (Manual) Monocytes # (Manual) Eosinophils # (Manual) Basophils # (Manual) PT INR APTT Heparin Anti-Xa Level 1.15 H POC ABG pH POC ABG pCO2 POC ABG pO2 Sodium Potassium Chloride Carbon Dioxide BUN Creatinine Glucose POC Glucose 122 H 255 H Calcium Phosphorus Magnesium AST Alkaline Phosphatase C-Reactive Protein Total Protein Albumin Lipase Vitamin B12 TSH Urine WBC (Auto) Urine Chloride Urine Total Protein Vancomycin Trough Crossmatch 10/30/16 10/30/16 10/30/16 00:10 05:30 05:30 WBC 19.8 H RBC 2.51 L Hgb 7.7 L Hct 24.1 L MCV RDW 15.5 H Plt Count 534 H Lymph % (Auto) Eddy % (Auto) Eddy # Seg Neutrophils % Seg Neuts % (Manual) Lymphocytes % (Manual) Monocytes % (Manual) Basophils % (Manual) Nucleated RBC % Seg Neutrophils # Seg Neutrophils # Man Lymphocytes # (Manual) Monocytes # (Manual) Eosinophils # (Manual) Basophils # (Manual) PT INR APTT Heparin Anti-Xa Level POC ABG pH POC ABG pCO2 POC ABG pO2 Sodium Potassium Chloride Carbon Dioxide BUN Creatinine Glucose 211 H POC Glucose 202 H Calcium 7.4 L Phosphorus Magnesium AST Alkaline Phosphatase C-Reactive Protein Total Protein Albumin Lipase Vitamin B12 TSH Urine WBC (Auto) Urine Chloride Urine Total Protein Vancomycin Trough Crossmatch 10/30/16 10/30/16 10/30/16 06:32 12:51 17:47 WBC RBC Hgb Hct MCV RDW Plt Count Lymph % (Auto) Eddy % (Auto) Eddy # Seg Neutrophils % Seg Neuts % (Manual) Lymphocytes % (Manual) Monocytes % (Manual) Basophils % (Manual) Nucleated RBC % Seg Neutrophils # Seg Neutrophils # Man Lymphocytes # (Manual) Monocytes # (Manual) Eosinophils # (Manual) Basophils # (Manual) PT INR APTT Heparin Anti-Xa Level POC ABG pH POC ABG pCO2 POC ABG pO2 Sodium Potassium Chloride Carbon Dioxide BUN Creatinine Glucose POC Glucose 207 H 218 H 169 H Calcium Phosphorus Magnesium AST Alkaline Phosphatase C-Reactive Protein Total Protein Albumin Lipase Vitamin B12 TSH Urine WBC (Auto) Urine Chloride Urine Total Protein Vancomycin Trough Crossmatch 10/30/16 10/31/16 10/31/16 23:59 05:25 11:21 WBC RBC Hgb Hct MCV RDW Plt Count Lymph % (Auto) Eddy % (Auto) Eddy # Seg Neutrophils % Seg Neuts % (Manual) Lymphocytes % (Manual) Monocytes % (Manual) Basophils % (Manual) Nucleated RBC % Seg Neutrophils # Seg Neutrophils # Man Lymphocytes # (Manual) Monocytes # (Manual) Eosinophils # (Manual) Basophils # (Manual) PT INR APTT Heparin Anti-Xa Level POC ABG pH POC ABG pCO2 POC ABG pO2 Sodium Potassium Chloride Carbon Dioxide BUN Creatinine Glucose POC Glucose 138 H 127 H 132 H Calcium Phosphorus Magnesium AST Alkaline Phosphatase C-Reactive Protein Total Protein Albumin Lipase Vitamin B12 TSH Urine WBC (Auto) Urine Chloride Urine Total Protein Vancomycin Trough Crossmatch 10/31/16 10/31/16 11/01/16 17:07 23:54 05:47 WBC RBC Hgb Hct MCV RDW Plt Count Lymph % (Auto) Eddy % (Auto) Eddy # Seg Neutrophils % Seg Neuts % (Manual) Lymphocytes % (Manual) Monocytes % (Manual) Basophils % (Manual) Nucleated RBC % Seg Neutrophils # Seg Neutrophils # Man Lymphocytes # (Manual) Monocytes # (Manual) Eosinophils # (Manual) Basophils # (Manual) PT INR APTT Heparin Anti-Xa Level POC ABG pH POC ABG pCO2 POC ABG pO2 Sodium Potassium Chloride Carbon Dioxide BUN Creatinine Glucose POC Glucose 138 H 153 H 150 H Calcium Phosphorus Magnesium AST Alkaline Phosphatase C-Reactive Protein Total Protein Albumin Lipase Vitamin B12 TSH Urine WBC (Auto) Urine Chloride Urine Total Protein Vancomycin Trough Crossmatch 11/01/16 11/01/16 11/01/16 06:33 06:33 12:16 WBC 19.2 H RBC 2.51 L Hgb 7.9 L Hct 24.8 L MCV 99 H D RDW 16.1 H Plt Count 569 H Lymph % (Auto) Eddy % (Auto) Eddy # Seg Neutrophils % Seg Neuts % (Manual) Lymphocytes % (Manual) Monocytes % (Manual) Basophils % (Manual) Nucleated RBC % Seg Neutrophils # Seg Neutrophils # Man Lymphocytes # (Manual) Monocytes # (Manual) Eosinophils # (Manual) Basophils # (Manual) PT INR APTT Heparin Anti-Xa Level POC ABG pH POC ABG pCO2 POC ABG pO2 Sodium Potassium 3.5 L Chloride Carbon Dioxide 21 L BUN Creatinine Glucose 137 H POC Glucose 125 H Calcium 7.7 L Phosphorus Magnesium AST Alkaline Phosphatase 148 H C-Reactive Protein Total Protein 6.2 L Albumin 2.0 L Lipase Vitamin B12 TSH Urine WBC (Auto) Urine Chloride Urine Total Protein Vancomycin Trough Crossmatch 11/01/16 11/02/16 11/02/16 17:37 00:05 04:15 WBC RBC Hgb Hct MCV RDW Plt Count Lymph % (Auto) Eddy % (Auto) Eddy # Seg Neutrophils % Seg Neuts % (Manual) Lymphocytes % (Manual) Monocytes % (Manual) Basophils % (Manual) Nucleated RBC % Seg Neutrophils # Seg Neutrophils # Man Lymphocytes # (Manual) Monocytes # (Manual) Eosinophils # (Manual) Basophils # (Manual) PT INR APTT Heparin Anti-Xa Level < 0.10 L POC ABG pH POC ABG pCO2 POC ABG pO2 Sodium Potassium 3.2 L Chloride Carbon Dioxide BUN 6 L Creatinine Glucose 135 H POC Glucose 164 H Calcium 7.5 L Phosphorus Magnesium AST Alkaline Phosphatase 132 H C-Reactive Protein Total Protein 6.2 L Albumin 1.8 L Lipase Vitamin B12 TSH Urine WBC (Auto) Urine Chloride Urine Total Protein Vancomycin Trough Crossmatch 11/02/16 11/02/16 11/02/16 04:15 05:54 12:15 WBC 17.7 H RBC 2.43 L Hgb 7.6 L Hct 23.5 L MCV RDW 15.9 H Plt Count 502 H Lymph % (Auto) Eddy % (Auto) Eddy # Seg Neutrophils % Seg Neuts % (Manual) 84.0 H Lymphocytes % (Manual) 11.0 L Monocytes % (Manual) Basophils % (Manual) Nucleated RBC % 1.0 H Seg Neutrophils # Seg Neutrophils # Man 14.9 H Lymphocytes # (Manual) Monocytes # (Manual) Eosinophils # (Manual) Basophils # (Manual) PT INR APTT Heparin Anti-Xa Level POC ABG pH POC ABG pCO2 POC ABG pO2 Sodium Potassium Chloride Carbon Dioxide BUN Creatinine Glucose POC Glucose 152 H 137 H Calcium Phosphorus Magnesium AST Alkaline Phosphatase C-Reactive Protein Total Protein Albumin Lipase Vitamin B12 TSH Urine WBC (Auto) Urine Chloride Urine Total Protein Vancomycin Trough Crossmatch 11/02/16 11/03/16 11/03/16 17:00 00:05 00:05 WBC RBC Hgb Hct MCV RDW Plt Count Lymph % (Auto) Eddy % (Auto) Eddy # Seg Neutrophils % Seg Neuts % (Manual) Lymphocytes % (Manual) Monocytes % (Manual) Basophils % (Manual) Nucleated RBC % Seg Neutrophils # Seg Neutrophils # Man Lymphocytes # (Manual) Monocytes # (Manual) Eosinophils # (Manual) Basophils # (Manual) PT INR APTT Heparin Anti-Xa Level POC ABG pH POC ABG pCO2 POC ABG pO2 Sodium Potassium Chloride Carbon Dioxide 20 L BUN 5 L Creatinine Glucose 139 H POC Glucose 161 H Calcium 6.7 L Phosphorus Magnesium 1.2 L AST Alkaline Phosphatase C-Reactive Protein Total Protein Albumin Lipase Vitamin B12 TSH Urine WBC (Auto) Urine Chloride Urine Total Protein Vancomycin Trough Crossmatch 11/03/16 11/03/16 11/03/16 00:05 02:05 04:23 WBC 15.9 H 14.0 H RBC 1.93 L 2.38 L Hgb 5.9 L* 7.3 L Hct 18.9 L* 23.1 L MCV 98 H RDW 15.9 H 15.9 H Plt Count Lymph % (Auto) Eddy % (Auto) Eddy # Seg Neutrophils % Seg Neuts % (Manual) 85.0 H Lymphocytes % (Manual) 4.0 L Monocytes % (Manual) Basophils % (Manual) Nucleated RBC % Seg Neutrophils # Seg Neutrophils # Man 13.5 H Lymphocytes # (Manual) 0.6 L Monocytes # (Manual) Eosinophils # (Manual) Basophils # (Manual) PT INR APTT Heparin Anti-Xa Level POC ABG pH POC ABG pCO2 POC ABG pO2 Sodium Potassium Chloride Carbon Dioxide BUN 5 L Creatinine Glucose 127 H POC Glucose Calcium 7.2 L Phosphorus Magnesium AST Alkaline Phosphatase C-Reactive Protein Total Protein 5.8 L Albumin 1.5 L Lipase Vitamin B12 TSH Urine WBC (Auto) Urine Chloride Urine Total Protein Vancomycin Trough Crossmatch 11/03/16 11/03/16 11/03/16 09:14 09:27 11:54 WBC RBC Hgb Hct MCV RDW Plt Count Lymph % (Auto) Eddy % (Auto) Eddy # Seg Neutrophils % Seg Neuts % (Manual) Lymphocytes % (Manual) Monocytes % (Manual) Basophils % (Manual) Nucleated RBC % Seg Neutrophils # Seg Neutrophils # Man Lymphocytes # (Manual) Monocytes # (Manual) Eosinophils # (Manual) Basophils # (Manual) PT INR APTT Heparin Anti-Xa Level 0.11 L POC ABG pH POC ABG pCO2 POC ABG pO2 Sodium Potassium Chloride Carbon Dioxide BUN 5 L Creatinine Glucose 111 H POC Glucose 139 H Calcium 6.7 L Phosphorus Magnesium AST Alkaline Phosphatase C-Reactive Protein Total Protein Albumin Lipase Vitamin B12 TSH Urine WBC (Auto) Urine Chloride Urine Total Protein Vancomycin Trough Crossmatch 11/03/16 11/03/16 11/03/16 16:26 18:01 18:01 WBC RBC Hgb Hct MCV RDW Plt Count Lymph % (Auto) Eddy % (Auto) Eddy # Seg Neutrophils % Seg Neuts % (Manual) Lymphocytes % (Manual) Monocytes % (Manual) Basophils % (Manual) Nucleated RBC % Seg Neutrophils # Seg Neutrophils # Man Lymphocytes # (Manual) Monocytes # (Manual) Eosinophils # (Manual) Basophils # (Manual) PT INR APTT Heparin Anti-Xa Level 2.00 H POC ABG pH POC ABG pCO2 POC ABG pO2 Sodium Potassium Chloride Carbon Dioxide BUN Creatinine Glucose POC Glucose 142 H Calcium Phosphorus Magnesium AST Alkaline Phosphatase C-Reactive Protein Total Protein Albumin Lipase Vitamin B12 TSH Urine WBC (Auto) Urine Chloride Urine Total Protein Vancomycin Trough Crossmatch See Detail 11/04/16 11/04/16 11/04/16 02:15 02:15 06:35 WBC 11.8 H RBC 2.39 L Hgb 7.4 L Hct 23.1 L MCV RDW 15.9 H Plt Count Lymph % (Auto) Eddy % (Auto) Eddy # Seg Neutrophils % Seg Neuts % (Manual) 76.0 H Lymphocytes % (Manual) 12.0 L Monocytes % (Manual) 9.0 H Basophils % (Manual) Nucleated RBC % Seg Neutrophils # Seg Neutrophils # Man 9.0 H Lymphocytes # (Manual) Monocytes # (Manual) 1.1 H Eosinophils # (Manual) Basophils # (Manual) PT INR APTT Heparin Anti-Xa Level < 0.10 L POC ABG pH POC ABG pCO2 POC ABG pO2 Sodium Potassium Chloride Carbon Dioxide 21 L BUN 5 L Creatinine Glucose 112 H POC Glucose Calcium 6.8 L Phosphorus Magnesium AST Alkaline Phosphatase C-Reactive Protein Total Protein 5.7 L Albumin 1.7 L Lipase Vitamin B12 TSH Urine WBC (Auto) Urine Chloride Urine Total Protein Vancomycin Trough Crossmatch 11/04/16 11/04/16 11/04/16 10:51 12:58 15:04 WBC RBC Hgb Hct MCV RDW Plt Count Lymph % (Auto) Eddy % (Auto) Eddy # Seg Neutrophils % Seg Neuts % (Manual) Lymphocytes % (Manual) Monocytes % (Manual) Basophils % (Manual) Nucleated RBC % Seg Neutrophils # Seg Neutrophils # Man Lymphocytes # (Manual) Monocytes # (Manual) Eosinophils # (Manual) Basophils # (Manual) PT INR APTT Heparin Anti-Xa Level 1.05 H POC ABG pH POC ABG pCO2 33.7 L POC ABG pO2 60 L Sodium Potassium Chloride Carbon Dioxide BUN Creatinine Glucose POC Glucose 118 H Calcium Phosphorus Magnesium AST Alkaline Phosphatase C-Reactive Protein Total Protein Albumin Lipase Vitamin B12 TSH Urine WBC (Auto) Urine Chloride Urine Total Protein Vancomycin Trough Crossmatch 11/04/16 11/04/16 11/05/16 17:20 20:31 02:30 WBC RBC Hgb Hct MCV RDW Plt Count Lymph % (Auto) Eddy % (Auto) Eddy # Seg Neutrophils % Seg Neuts % (Manual) Lymphocytes % (Manual) Monocytes % (Manual) Basophils % (Manual) Nucleated RBC % Seg Neutrophils # Seg Neutrophils # Man Lymphocytes # (Manual) Monocytes # (Manual) Eosinophils # (Manual) Basophils # (Manual) PT INR APTT Heparin Anti-Xa Level POC ABG pH POC ABG pCO2 POC ABG pO2 Sodium Potassium 3.5 L Chloride Carbon Dioxide 18 L BUN 5 L Creatinine 0.6 L Glucose 110 H POC Glucose 228 H 169 H Calcium 7.1 L Phosphorus Magnesium AST Alkaline Phosphatase C-Reactive Protein Total Protein Albumin 1.9 L Lipase Vitamin B12 TSH Urine WBC (Auto) Urine Chloride Urine Total Protein Vancomycin Trough Crossmatch 11/05/16 11/05/16 11/05/16 02:30 17:52 21:07 WBC 14.1 H RBC Hgb Hct MCV RDW 16.7 H Plt Count Lymph % (Auto) Eddy % (Auto) Eddy # Seg Neutrophils % Seg Neuts % (Manual) 80.0 H Lymphocytes % (Manual) 6.0 L Monocytes % (Manual) 8.0 H Basophils % (Manual) Nucleated RBC % Seg Neutrophils # Seg Neutrophils # Man 11.3 H Lymphocytes # (Manual) 0.8 L Monocytes # (Manual) 1.1 H Eosinophils # (Manual) Basophils # (Manual) PT INR APTT Heparin Anti-Xa Level < 0.10 L POC ABG pH POC ABG pCO2 POC ABG pO2 Sodium Potassium Chloride Carbon Dioxide BUN Creatinine Glucose POC Glucose 174 H Calcium Phosphorus Magnesium AST Alkaline Phosphatase C-Reactive Protein Total Protein Albumin Lipase Vitamin B12 TSH Urine WBC (Auto) Urine Chloride Urine Total Protein Vancomycin Trough Crossmatch 11/05/16 11/06/16 11/06/16 23:30 05:00 05:00 WBC 15.2 H RBC 3.29 L Hgb 10.0 L Hct MCV RDW 16.9 H Plt Count Lymph % (Auto) Eddy % (Auto) Eddy # Seg Neutrophils % Seg Neuts % (Manual) Lymphocytes % (Manual) Monocytes % (Manual) Basophils % (Manual) Nucleated RBC % Seg Neutrophils # Seg Neutrophils # Man Lymphocytes # (Manual) Monocytes # (Manual) Eosinophils # (Manual) Basophils # (Manual) PT INR APTT Heparin Anti-Xa Level 0.94 H POC ABG pH POC ABG pCO2 POC ABG pO2 Sodium Potassium Chloride Carbon Dioxide BUN Creatinine Glucose POC Glucose 131 H Calcium Phosphorus Magnesium AST Alkaline Phosphatase C-Reactive Protein Total Protein Albumin Lipase Vitamin B12 TSH Urine WBC (Auto) Urine Chloride Urine Total Protein Vancomycin Trough Crossmatch 11/06/16 11/06/16 11/06/16 05:00 11:45 18:23 WBC RBC Hgb Hct MCV RDW Plt Count Lymph % (Auto) Eddy % (Auto) Eddy # Seg Neutrophils % Seg Neuts % (Manual) Lymphocytes % (Manual) Monocytes % (Manual) Basophils % (Manual) Nucleated RBC % Seg Neutrophils # Seg Neutrophils # Man Lymphocytes # (Manual) Monocytes # (Manual) Eosinophils # (Manual) Basophils # (Manual) PT INR APTT Heparin Anti-Xa Level POC ABG pH POC ABG pCO2 POC ABG pO2 Sodium Potassium 3.5 L Chloride 107.1 H Carbon Dioxide 20 L BUN 4 L Creatinine 0.6 L Glucose 104 H POC Glucose 141 H 255 H Calcium 6.7 L Phosphorus Magnesium AST Alkaline Phosphatase C-Reactive Protein Total Protein Albumin Lipase Vitamin B12 TSH Urine WBC (Auto) Urine Chloride Urine Total Protein Vancomycin Trough Crossmatch 11/06/16 11/06/16 11/07/16 22:07 23:07 11:41 WBC RBC Hgb Hct MCV RDW Plt Count Lymph % (Auto) Eddy % (Auto) Eddy # Seg Neutrophils % Seg Neuts % (Manual) Lymphocytes % (Manual) Monocytes % (Manual) Basophils % (Manual) Nucleated RBC % Seg Neutrophils # Seg Neutrophils # Man Lymphocytes # (Manual) Monocytes # (Manual) Eosinophils # (Manual) Basophils # (Manual) PT INR APTT Heparin Anti-Xa Level 0.80 H POC ABG pH POC ABG pCO2 POC ABG pO2 Sodium Potassium Chloride Carbon Dioxide BUN Creatinine Glucose POC Glucose 183 H 132 H Calcium Phosphorus Magnesium AST Alkaline Phosphatase C-Reactive Protein Total Protein Albumin Lipase Vitamin B12 TSH Urine WBC (Auto) Urine Chloride Urine Total Protein Vancomycin Trough Crossmatch 11/07/16 11/07/1611/07/17 12:17 17:05 17:58 WBC RBC Hgb Hct MCV RDW Plt Count Lymph % (Auto) Eddy % (Auto) Eddy # Seg Neutrophils % Seg Neuts % (Manual) Lymphocytes % (Manual) Monocytes % (Manual) Basophils % (Manual) Nucleated RBC % Seg Neutrophils # Seg Neutrophils # Man Lymphocytes # (Manual) Monocytes # (Manual) Eosinophils # (Manual) Basophils # (Manual) PT INR APTT Heparin Anti-Xa Level 0.87 H POC ABG pH 7.324 L POC ABG pCO2 POC ABG pO2 Sodium Potassium Chloride Carbon Dioxide BUN Creatinine Glucose POC Glucose 158 H Calcium Phosphorus Magnesium AST Alkaline Phosphatase C-Reactive Protein Total Protein Albumin Lipase Vitamin B12 TSH Urine WBC (Auto) Urine Chloride Urine Total Protein Vancomycin Trough Crossmatch 11/07/16 11/07/16 11/07/16 23:26 Unknown Unknown WBC 12.3 H RBC 2.96 L Hgb 9.1 L Hct 27.9 L MCV RDW 16.8 H Plt Count Lymph % (Auto) Eddy % (Auto) Eddy # Seg Neutrophils % Seg Neuts % (Manual) 80.0 H Lymphocytes % (Manual) 7.0 L Monocytes % (Manual) Basophils % (Manual) Nucleated RBC % Seg Neutrophils # Seg Neutrophils # Man 9.8 H Lymphocytes # (Manual) 0.9 L Monocytes # (Manual) Eosinophils # (Manual) Basophils # (Manual) PT INR APTT Heparin Anti-Xa Level POC ABG pH POC ABG pCO2 POC ABG pO2 Sodium Potassium Chloride Carbon Dioxide 19 L BUN Creatinine Glucose 106 H POC Glucose 130 H Calcium 6.9 L Phosphorus Magnesium AST Alkaline Phosphatase C-Reactive Protein Total Protein Albumin Lipase Vitamin B12 TSH Urine WBC (Auto) Urine Chloride Urine Total Protein Vancomycin Trough Crossmatch 11/07/16 11/08/16 11/08/16 Unknown 05:14 05:20 WBC 12.4 H RBC 3.04 L Hgb 9.2 L Hct 28.8 L MCV RDW 16.6 H Plt Count Lymph % (Auto) Eddy % (Auto) Eddy # Seg Neutrophils % Seg Neuts % (Manual) 77.0 H Lymphocytes % (Manual) 5.0 L Monocytes % (Manual) Basophils % (Manual) 2.0 H Nucleated RBC % Seg Neutrophils # Seg Neutrophils # Man 9.5 H Lymphocytes # (Manual) 0.6 L Monocytes # (Manual) Eosinophils # (Manual) Basophils # (Manual) 0.2 H PT INR APTT Heparin Anti-Xa Level 0.90 H POC ABG pH POC ABG pCO2 POC ABG pO2 Sodium Potassium Chloride Carbon Dioxide BUN Creatinine Glucose POC Glucose 204 H Calcium Phosphorus Magnesium AST Alkaline Phosphatase C-Reactive Protein Total Protein Albumin Lipase Vitamin B12 TSH Urine WBC (Auto) Urine Chloride Urine Total Protein Vancomycin Trough Crossmatch 11/08/16 11/08/16 11/08/16 05:20 12:10 13:10 WBC RBC Hgb Hct MCV RDW Plt Count Lymph % (Auto) Eddy % (Auto) Eddy # Seg Neutrophils % Seg Neuts % (Manual) Lymphocytes % (Manual) Monocytes % (Manual) Basophils % (Manual) Nucleated RBC % Seg Neutrophils # Seg Neutrophils # Man Lymphocytes # (Manual) Monocytes # (Manual) Eosinophils # (Manual) Basophils # (Manual) PT INR APTT Heparin Anti-Xa Level POC ABG pH POC ABG pCO2 33.7 L POC ABG pO2 Sodium 136 L Potassium Chloride Carbon Dioxide 19 L BUN Creatinine Glucose 192 H POC Glucose 180 H Calcium 7.1 L Phosphorus Magnesium AST Alkaline Phosphatase C-Reactive Protein Total Protein Albumin Lipase Vitamin B12 TSH Urine WBC (Auto) Urine Chloride Urine Total Protein Vancomycin Trough Crossmatch 11/08/16 11/08/16 11/08/16 17:26 20:45 23:34 WBC RBC Hgb Hct MCV RDW Plt Count Lymph % (Auto) Eddy % (Auto) Eddy # Seg Neutrophils % Seg Neuts % (Manual) Lymphocytes % (Manual) Monocytes % (Manual) Basophils % (Manual) Nucleated RBC % Seg Neutrophils # Seg Neutrophils # Man Lymphocytes # (Manual) Monocytes # (Manual) Eosinophils # (Manual) Basophils # (Manual) PT INR APTT Heparin Anti-Xa Level POC ABG pH POC ABG pCO2 POC ABG pO2 Sodium Potassium Chloride Carbon Dioxide BUN Creatinine Glucose POC Glucose 187 H 178 H Calcium Phosphorus Magnesium AST Alkaline Phosphatase C-Reactive Protein Total Protein Albumin Lipase Vitamin B12 TSH Urine WBC (Auto) Urine Chloride Urine Total Protein Vancomycin Trough 35.4 H Crossmatch 11/09/16 11/09/16 11/09/16 05:30 05:30 05:59 WBC 11.5 H RBC 2.96 L Hgb 9.2 L Hct 28.2 L MCV RDW 16.4 H Plt Count Lymph % (Auto) Eddy % (Auto) Eddy # Seg Neutrophils % Seg Neuts % (Manual) 76.0 H Lymphocytes % (Manual) 2.0 L Monocytes % (Manual) Basophils % (Manual) Nucleated RBC % Seg Neutrophils # Seg Neutrophils # Man 8.7 H Lymphocytes # (Manual) 0.2 L Monocytes # (Manual) Eosinophils # (Manual) Basophils # (Manual) PT INR APTT Heparin Anti-Xa Level POC ABG pH POC ABG pCO2 POC ABG pO2 Sodium Potassium 3.4 L Chloride 107.6 H Carbon Dioxide 19 L BUN Creatinine 0.6 L Glucose 207 H POC Glucose 263 H Calcium 7.3 L Phosphorus Magnesium AST Alkaline Phosphatase C-Reactive Protein Total Protein Albumin Lipase Vitamin B12 TSH Urine WBC (Auto) Urine Chloride Urine Total Protein Vancomycin Trough Crossmatch 11/09/16 11/09/16 11/09/16 11:49 15:24 18:04 WBC RBC Hgb Hct MCV RDW Plt Count Lymph % (Auto) Eddy % (Auto) Eddy # Seg Neutrophils % Seg Neuts % (Manual) Lymphocytes % (Manual) Monocytes % (Manual) Basophils % (Manual) Nucleated RBC % Seg Neutrophils # Seg Neutrophils # Man Lymphocytes # (Manual) Monocytes # (Manual) Eosinophils # (Manual) Basophils # (Manual) PT INR APTT Heparin Anti-Xa Level POC ABG pH POC ABG pCO2 33.8 L POC ABG pO2 131 H Sodium Potassium Chloride Carbon Dioxide BUN Creatinine Glucose POC Glucose 269 H 242 H Calcium Phosphorus Magnesium AST Alkaline Phosphatase C-Reactive Protein Total Protein Albumin Lipase Vitamin B12 TSH Urine WBC (Auto) Urine Chloride Urine Total Protein Vancomycin Trough Crossmatch 11/09/16 11/10/16 11/10/16 22:57 04:30 04:30 WBC 15.7 H RBC 3.17 L Hgb 9.7 L Hct 30.2 L MCV RDW 16.2 H Plt Count Lymph % (Auto) Eddy % (Auto) Eddy # Seg Neutrophils % Seg Neuts % (Manual) Lymphocytes % (Manual) Monocytes % (Manual) Basophils % (Manual) Nucleated RBC % Seg Neutrophils # Seg Neutrophils # Man 8.5 H Lymphocytes # (Manual) Monocytes # (Manual) Eosinophils # (Manual) 0.5 H Basophils # (Manual) PT INR APTT Heparin Anti-Xa Level POC ABG pH POC ABG pCO2 POC ABG pO2 Sodium Potassium Chloride Carbon Dioxide 19 L BUN Creatinine 0.6 L Glucose 199 H POC Glucose 239 H Calcium 7.8 L Phosphorus Magnesium AST Alkaline Phosphatase C-Reactive Protein Total Protein Albumin Lipase Vitamin B12 TSH Urine WBC (Auto) Urine Chloride Urine Total Protein Vancomycin Trough Crossmatch 11/10/16 11/10/16 11/10/16 04:30 11:32 16:00 WBC RBC Hgb Hct MCV RDW Plt Count Lymph % (Auto) Eddy % (Auto) Eddy # Seg Neutrophils % Seg Neuts % (Manual) Lymphocytes % (Manual) Monocytes % (Manual) Basophils % (Manual) Nucleated RBC % Seg Neutrophils # Seg Neutrophils # Man Lymphocytes # (Manual) Monocytes # (Manual) Eosinophils # (Manual) Basophils # (Manual) PT INR APTT Heparin Anti-Xa Level 1.09 H < 0.10 L POC ABG pH POC ABG pCO2 POC ABG pO2 Sodium Potassium Chloride Carbon Dioxide BUN Creatinine Glucose POC Glucose 211 H Calcium Phosphorus Magnesium AST Alkaline Phosphatase C-Reactive Protein Total Protein Albumin Lipase Vitamin B12 TSH Urine WBC (Auto) Urine Chloride Urine Total Protein Vancomycin Trough Crossmatch 11/10/16 11/10/16 11/10/16 17:39 18:00 23:06 WBC RBC Hgb Hct MCV RDW Plt Count Lymph % (Auto) Eddy % (Auto) Eddy # Seg Neutrophils % Seg Neuts % (Manual) Lymphocytes % (Manual) Monocytes % (Manual) Basophils % (Manual) Nucleated RBC % Seg Neutrophils # Seg Neutrophils # Man Lymphocytes # (Manual) Monocytes # (Manual) Eosinophils # (Manual) Basophils # (Manual) PT INR APTT Heparin Anti-Xa Level 0.85 H POC ABG pH POC ABG pCO2 POC ABG pO2 Sodium Potassium Chloride Carbon Dioxide BUN Creatinine Glucose POC Glucose 249 H 220 H Calcium Phosphorus Magnesium AST Alkaline Phosphatase C-Reactive Protein Total Protein Albumin Lipase Vitamin B12 TSH Urine WBC (Auto) Urine Chloride Urine Total Protein Vancomycin Trough Crossmatch 11/11/16 11/11/16 11/11/16 05:56 06:15 06:15 WBC 13.3 H RBC 2.87 L Hgb 8.7 L Hct 27.2 L MCV RDW 16.4 H Plt Count Lymph % (Auto) Eddy % (Auto) Eddy # 0.9 H Seg Neutrophils % 78.9 H Seg Neuts % (Manual) Lymphocytes % (Manual) Monocytes % (Manual) Basophils % (Manual) Nucleated RBC % Seg Neutrophils # 10.5 H Seg Neutrophils # Man Lymphocytes # (Manual) Monocytes # (Manual) Eosinophils # (Manual) Basophils # (Manual) PT INR APTT Heparin Anti-Xa Level POC ABG pH POC ABG pCO2 POC ABG pO2 Sodium Potassium 3.2 L Chloride Carbon Dioxide 19 L BUN Creatinine Glucose POC Glucose 117 H Calcium 7.6 L Phosphorus Magnesium AST Alkaline Phosphatase C-Reactive Protein Total Protein Albumin Lipase Vitamin B12 TSH Urine WBC (Auto) Urine Chloride Urine Total Protein Vancomycin Trough Crossmatch 11/11/16 11/11/16 11/11/16 12:26 16:58 17:33 WBC RBC Hgb Hct MCV RDW Plt Count Lymph % (Auto) Eddy % (Auto) Eddy # Seg Neutrophils % Seg Neuts % (Manual) Lymphocytes % (Manual) Monocytes % (Manual) Basophils % (Manual) Nucleated RBC % Seg Neutrophils # Seg Neutrophils # Man Lymphocytes # (Manual) Monocytes # (Manual) Eosinophils # (Manual) Basophils # (Manual) PT INR APTT Heparin Anti-Xa Level < 0.10 L POC ABG pH POC ABG pCO2 POC ABG pO2 Sodium Potassium Chloride Carbon Dioxide BUN Creatinine Glucose POC Glucose 114 H 161 H Calcium Phosphorus Magnesium AST Alkaline Phosphatase C-Reactive Protein Total Protein Albumin Lipase Vitamin B12 TSH Urine WBC (Auto) Urine Chloride Urine Total Protein Vancomycin Trough Crossmatch 11/12/16 11/12/16 11/12/16 05:00 05:00 05:00 WBC 12.8 H RBC 2.75 L Hgb 8.4 L Hct 25.7 L MCV RDW 16.3 H Plt Count Lymph % (Auto) Eddy % (Auto) 7.5 H Eddy # 1.0 H Seg Neutrophils % 78.0 H Seg Neuts % (Manual) Lymphocytes % (Manual) Monocytes % (Manual) Basophils % (Manual) Nucleated RBC % Seg Neutrophils # 10.0 H Seg Neutrophils # Man Lymphocytes # (Manual) Monocytes # (Manual) Eosinophils # (Manual) Basophils # (Manual) PT INR APTT Heparin Anti-Xa Level 0.87 H POC ABG pH POC ABG pCO2 POC ABG pO2 Sodium Potassium 3.4 L Chloride Carbon Dioxide 19 L BUN Creatinine Glucose 112 H POC Glucose Calcium 7.7 L Phosphorus Magnesium AST Alkaline Phosphatase C-Reactive Protein Total Protein Albumin Lipase Vitamin B12 TSH Urine WBC (Auto) Urine Chloride Urine Total Protein Vancomycin Trough Crossmatch 11/12/16 11/12/16 11/13/16 11:18 16:40 00:44 WBC RBC Hgb Hct MCV RDW Plt Count Lymph % (Auto) Eddy % (Auto) Eddy # Seg Neutrophils % Seg Neuts % (Manual) Lymphocytes % (Manual) Monocytes % (Manual) Basophils % (Manual) Nucleated RBC % Seg Neutrophils # Seg Neutrophils # Man Lymphocytes # (Manual) Monocytes # (Manual) Eosinophils # (Manual) Basophils # (Manual) PT INR APTT Heparin Anti-Xa Level POC ABG pH POC ABG pCO2 POC ABG pO2 Sodium Potassium Chloride Carbon Dioxide BUN Creatinine Glucose POC Glucose 135 H 139 H 169 H Calcium Phosphorus Magnesium AST Alkaline Phosphatase C-Reactive Protein Total Protein Albumin Lipase Vitamin B12 TSH Urine WBC (Auto) Urine Chloride Urine Total Protein Vancomycin Trough Crossmatch 11/13/16 11/13/16 11/13/16 05:28 05:28 06:02 WBC 12.7 H RBC 2.93 L Hgb 9.0 L Hct 27.6 L MCV RDW 16.1 H Plt Count Lymph % (Auto) Eddy % (Auto) Eddy # Seg Neutrophils % 78.6 H Seg Neuts % (Manual) Lymphocytes % (Manual) Monocytes % (Manual) Basophils % (Manual) Nucleated RBC % Seg Neutrophils # 10.0 H Seg Neutrophils # Man Lymphocytes # (Manual) Monocytes # (Manual) Eosinophils # (Manual) Basophils # (Manual) PT INR APTT Heparin Anti-Xa Level POC ABG pH POC ABG pCO2 POC ABG pO2 Sodium Potassium Chloride Carbon Dioxide 17 L BUN Creatinine Glucose 116 H POC Glucose 112 H Calcium 7.8 L Phosphorus Magnesium AST Alkaline Phosphatase C-Reactive Protein Total Protein Albumin Lipase Vitamin B12 TSH Urine WBC (Auto) Urine Chloride Urine Total Protein Vancomycin Trough Crossmatch 11/13/16 11/13/16 11/13/16 12:34 16:55 17:00 WBC RBC Hgb Hct MCV RDW Plt Count Lymph % (Auto) Eddy % (Auto) Eddy # Seg Neutrophils % Seg Neuts % (Manual) Lymphocytes % (Manual) Monocytes % (Manual) Basophils % (Manual) Nucleated RBC % Seg Neutrophils # Seg Neutrophils # Man Lymphocytes # (Manual) Monocytes # (Manual) Eosinophils # (Manual) Basophils # (Manual) PT INR APTT Heparin Anti-Xa Level POC ABG pH POC ABG pCO2 22.9 L POC ABG pO2 53 L Sodium Potassium Chloride Carbon Dioxide BUN Creatinine Glucose POC Glucose 109 H 122 H Calcium Phosphorus Magnesium AST Alkaline Phosphatase C-Reactive Protein Total Protein Albumin Lipase Vitamin B12 TSH Urine WBC (Auto) Urine Chloride Urine Total Protein Vancomycin Trough Crossmatch 11/13/16 11/14/16 11/14/16 23:33 04:42 04:42 WBC 11.7 H RBC 3.01 L Hgb 9.3 L Hct 28.9 L MCV RDW 16.5 H Plt Count Lymph % (Auto) Eddy % (Auto) Eddy # Seg Neutrophils % Seg Neuts % (Manual) 79.0 H Lymphocytes % (Manual) 10.0 L Monocytes % (Manual) Basophils % (Manual) Nucleated RBC % Seg Neutrophils # Seg Neutrophils # Man 9.2 H Lymphocytes # (Manual) Monocytes # (Manual) Eosinophils # (Manual) Basophils # (Manual) PT INR APTT Heparin Anti-Xa Level POC ABG pH POC ABG pCO2 POC ABG pO2 Sodium Potassium Chloride Carbon Dioxide 16 L BUN Creatinine Glucose 102 H POC Glucose 173 H Calcium 7.5 L Phosphorus Magnesium AST Alkaline Phosphatase C-Reactive Protein Total Protein Albumin Lipase Vitamin B12 TSH Urine WBC (Auto) Urine Chloride Urine Total Protein Vancomycin Trough Crossmatch 11/14/16 11/14/16 11/14/16 11:43 16:57 19:45 WBC RBC Hgb Hct MCV RDW Plt Count Lymph % (Auto) Eddy % (Auto) Eddy # Seg Neutrophils % Seg Neuts % (Manual) Lymphocytes % (Manual) Monocytes % (Manual) Basophils % (Manual) Nucleated RBC % Seg Neutrophils # Seg Neutrophils # Man Lymphocytes # (Manual) Monocytes # (Manual) Eosinophils # (Manual) Basophils # (Manual) PT INR APTT Heparin Anti-Xa Level 0.71 H POC ABG pH POC ABG pCO2 POC ABG pO2 Sodium Potassium Chloride Carbon Dioxide BUN Creatinine Glucose POC Glucose 130 H 209 H Calcium Phosphorus Magnesium AST Alkaline Phosphatase C-Reactive Protein Total Protein Albumin Lipase Vitamin B12 TSH Urine WBC (Auto) Urine Chloride Urine Total Protein Vancomycin Trough Crossmatch 11/14/16 11/15/16 11/16/16 23:43 23:47 06:11 WBC RBC Hgb Hct MCV RDW Plt Count Lymph % (Auto) Eddy % (Auto) Eddy # Seg Neutrophils % Seg Neuts % (Manual) Lymphocytes % (Manual) Monocytes % (Manual) Basophils % (Manual) Nucleated RBC % Seg Neutrophils # Seg Neutrophils # Man Lymphocytes # (Manual) Monocytes # (Manual) Eosinophils # (Manual) Basophils # (Manual) PT INR APTT Heparin Anti-Xa Level POC ABG pH POC ABG pCO2 POC ABG pO2 Sodium Potassium Chloride Carbon Dioxide BUN Creatinine Glucose POC Glucose 167 H 114 H 125 H Calcium Phosphorus Magnesium AST Alkaline Phosphatase C-Reactive Protein Total Protein Albumin Lipase Vitamin B12 TSH Urine WBC (Auto) Urine Chloride Urine Total Protein Vancomycin Trough Crossmatch 11/16/16 11/16/16 11/16/16 09:05 09:05 09:05 WBC RBC 2.53 L Hgb 8.0 L Hct 23.7 L MCV RDW 15.9 H Plt Count Lymph % (Auto) Eddy % (Auto) Eddy # Seg Neutrophils % Seg Neuts % (Manual) Lymphocytes % (Manual) Monocytes % (Manual) Basophils % (Manual) Nucleated RBC % Seg Neutrophils # Seg Neutrophils # Man Lymphocytes # (Manual) Monocytes # (Manual) Eosinophils # (Manual) Basophils # (Manual) PT INR APTT Heparin Anti-Xa Level POC ABG pH POC ABG pCO2 POC ABG pO2 Sodium Potassium 2.5 L* D Chloride Carbon Dioxide 19 L BUN 5 L Creatinine Glucose 103 H POC Glucose Calcium 6.6 L Phosphorus Magnesium 1.3 L AST Alkaline Phosphatase C-Reactive Protein Total Protein Albumin Lipase Vitamin B12 TSH Urine WBC (Auto) Urine Chloride Urine Total Protein Vancomycin Trough Crossmatch 11/16/16 11/16/16 11/16/16 12:15 13:00 14:45 WBC RBC Hgb Hct MCV RDW Plt Count Lymph % (Auto) Eddy % (Auto) Eddy # Seg Neutrophils % Seg Neuts % (Manual) Lymphocytes % (Manual) Monocytes % (Manual) Basophils % (Manual) Nucleated RBC % Seg Neutrophils # Seg Neutrophils # Man Lymphocytes # (Manual) Monocytes # (Manual) Eosinophils # (Manual) Basophils # (Manual) PT 19.1 H INR 1.61 H APTT Heparin Anti-Xa Level POC ABG pH 7.479 H POC ABG pCO2 23.6 L POC ABG pO2 Sodium Potassium Chloride Carbon Dioxide BUN Creatinine Glucose POC Glucose 129 H Calcium Phosphorus Magnesium AST Alkaline Phosphatase C-Reactive Protein Total Protein Albumin Lipase Vitamin B12 TSH Urine WBC (Auto) Urine Chloride Urine Total Protein Vancomycin Trough Crossmatch 11/16/16 11/17/16 11/17/16 17:43 00:30 04:32 WBC RBC Hgb Hct MCV RDW Plt Count Lymph % (Auto) Eddy % (Auto) Eddy # Seg Neutrophils % Seg Neuts % (Manual) Lymphocytes % (Manual) Monocytes % (Manual) Basophils % (Manual) Nucleated RBC % Seg Neutrophils # Seg Neutrophils # Man Lymphocytes # (Manual) Monocytes # (Manual) Eosinophils # (Manual) Basophils # (Manual) PT INR APTT Heparin Anti-Xa Level POC ABG pH POC ABG pCO2 POC ABG pO2 Sodium Potassium Chloride Carbon Dioxide 18 L BUN Creatinine Glucose 127 H POC Glucose 224 H 259 H Calcium 7.5 L Phosphorus Magnesium AST Alkaline Phosphatase C-Reactive Protein Total Protein Albumin Lipase Vitamin B12 TSH Urine WBC (Auto) Urine Chloride Urine Total Protein Vancomycin Trough Crossmatch 11/17/16 11/17/16 11/17/16 05:42 08:34 12:19 WBC RBC 2.85 L Hgb 8.9 L Hct 26.5 L MCV RDW 16.2 H Plt Count Lymph % (Auto) Eddy % (Auto) Eddy # Seg Neutrophils % Seg Neuts % (Manual) Lymphocytes % (Manual) Monocytes % (Manual) Basophils % (Manual) Nucleated RBC % Seg Neutrophils # Seg Neutrophils # Man Lymphocytes # (Manual) Monocytes # (Manual) Eosinophils # (Manual) Basophils # (Manual) PT INR APTT Heparin Anti-Xa Level POC ABG pH POC ABG pCO2 POC ABG pO2 Sodium Potassium Chloride Carbon Dioxide BUN Creatinine Glucose POC Glucose 118 H 264 H Calcium Phosphorus Magnesium AST Alkaline Phosphatase C-Reactive Protein Total Protein Albumin Lipase Vitamin B12 TSH Urine WBC (Auto) Urine Chloride Urine Total Protein Vancomycin Trough Crossmatch 11/17/16 11/17/16 11/18/16 16:52 23:44 04:53 WBC RBC Hgb Hct MCV RDW Plt Count Lymph % (Auto) Eddy % (Auto) Eddy # Seg Neutrophils % Seg Neuts % (Manual) Lymphocytes % (Manual) Monocytes % (Manual) Basophils % (Manual) Nucleated RBC % Seg Neutrophils # Seg Neutrophils # Man Lymphocytes # (Manual) Monocytes # (Manual) Eosinophils # (Manual) Basophils # (Manual) PT INR APTT Heparin Anti-Xa Level POC ABG pH POC ABG pCO2 POC ABG pO2 Sodium Potassium Chloride Carbon Dioxide BUN Creatinine Glucose POC Glucose 256 H 109 H 287 H Calcium Phosphorus Magnesium AST Alkaline Phosphatase C-Reactive Protein Total Protein Albumin Lipase Vitamin B12 TSH Urine WBC (Auto) Urine Chloride Urine Total Protein Vancomycin Trough Crossmatch 11/18/16 11/18/16 11/18/16 05:31 05:45 05:45 WBC RBC Hgb Hct MCV RDW Plt Count Lymph % (Auto) Eddy % (Auto) Eddy # Seg Neutrophils % Seg Neuts % (Manual) Lymphocytes % (Manual) Monocytes % (Manual) Basophils % (Manual) Nucleated RBC % Seg Neutrophils # Seg Neutrophils # Man Lymphocytes # (Manual) Monocytes # (Manual) Eosinophils # (Manual) Basophils # (Manual) PT 20.1 H INR 1.72 H APTT 131.1 H* Heparin Anti-Xa Level 0.18 L POC ABG pH 7.252 L POC ABG pCO2 32.0 L POC ABG pO2 Sodium Potassium Chloride 107.1 H Carbon Dioxide 17 L BUN Creatinine Glucose 284 H POC Glucose Calcium 7.2 L Phosphorus Magnesium AST Alkaline Phosphatase C-Reactive Protein Total Protein 5.5 L Albumin 2.1 L Lipase Vitamin B12 TSH Urine WBC (Auto) Urine Chloride Urine Total Protein Vancomycin Trough Crossmatch 11/18/16 11/18/16 11/18/16 05:45 09:17 12:06 WBC 13.3 H RBC 3.07 L Hgb 9.2 L Hct 29.5 L MCV RDW 16.9 H Plt Count Lymph % (Auto) 11.0 L Eddy % (Auto) Eddy # Seg Neutrophils % 82.9 H Seg Neuts % (Manual) Lymphocytes % (Manual) Monocytes % (Manual) Basophils % (Manual) Nucleated RBC % Seg Neutrophils # 11.0 H Seg Neutrophils # Man Lymphocytes # (Manual) Monocytes # (Manual) Eosinophils # (Manual) Basophils # (Manual) PT INR APTT Heparin Anti-Xa Level POC ABG pH POC ABG pCO2 24.3 L POC ABG pO2 79 L Sodium Potassium Chloride Carbon Dioxide BUN Creatinine Glucose POC Glucose 433 H Calcium Phosphorus Magnesium AST Alkaline Phosphatase C-Reactive Protein Total Protein Albumin Lipase Vitamin B12 TSH Urine WBC (Auto) Urine Chloride Urine Total Protein Vancomycin Trough Crossmatch 11/18/16 11/18/16 11/18/16 12:09 13:00 17:22 WBC 12.6 H RBC 2.79 L Hgb 8.6 L Hct 26.6 L MCV RDW 17.0 H Plt Count Lymph % (Auto) Eddy % (Auto) Eddy # Seg Neutrophils % Seg Neuts % (Manual) 90.0 H Lymphocytes % (Manual) 8.0 L Monocytes % (Manual) Basophils % (Manual) Nucleated RBC % Seg Neutrophils # Seg Neutrophils # Man 11.3 H Lymphocytes # (Manual) 1.0 L Monocytes # (Manual) Eosinophils # (Manual) Basophils # (Manual) PT INR APTT Heparin Anti-Xa Level POC ABG pH POC ABG pCO2 POC ABG pO2 Sodium Potassium Chloride Carbon Dioxide BUN Creatinine Glucose POC Glucose 429 H 297 H Calcium Phosphorus Magnesium AST Alkaline Phosphatase C-Reactive Protein Total Protein Albumin Lipase Vitamin B12 TSH Urine WBC (Auto) Urine Chloride Urine Total Protein Vancomycin Trough Crossmatch 11/18/16 11/19/16 11/19/16 23:27 04:30 04:30 WBC RBC 2.92 L Hgb 8.8 L Hct 27.0 L MCV RDW 16.6 H Plt Count Lymph % (Auto) Eddy % (Auto) Eddy # Seg Neutrophils % Seg Neuts % (Manual) Lymphocytes % (Manual) Monocytes % (Manual) Basophils % (Manual) Nucleated RBC % Seg Neutrophils # Seg Neutrophils # Man Lymphocytes # (Manual) Monocytes # (Manual) Eosinophils # (Manual) Basophils # (Manual) PT INR APTT Heparin Anti-Xa Level POC ABG pH POC ABG pCO2 POC ABG pO2 Sodium Potassium 3.0 L Chloride 107.9 H Carbon Dioxide 20 L BUN Creatinine Glucose 231 H POC Glucose 268 H Calcium 7.1 L Phosphorus Magnesium AST Alkaline Phosphatase C-Reactive Protein Total Protein 5.5 L Albumin 2.1 L Lipase Vitamin B12 TSH Urine WBC (Auto) Urine Chloride Urine Total Protein Vancomycin Trough Crossmatch 11/19/16 11/19/16 11/19/16 04:40 06:40 10:00 WBC RBC Hgb Hct MCV RDW Plt Count Lymph % (Auto) Eddy % (Auto) Eddy # Seg Neutrophils % Seg Neuts % (Manual) Lymphocytes % (Manual) Monocytes % (Manual) Basophils % (Manual) Nucleated RBC % Seg Neutrophils # Seg Neutrophils # Man Lymphocytes # (Manual) Monocytes # (Manual) Eosinophils # (Manual) Basophils # (Manual) PT INR APTT Heparin Anti-Xa Level POC ABG pH POC ABG pCO2 POC ABG pO2 Sodium Potassium Chloride Carbon Dioxide BUN Creatinine Glucose POC Glucose 267 H 244 H Calcium Phosphorus Magnesium 1.4 L AST Alkaline Phosphatase C-Reactive Protein Total Protein Albumin Lipase Vitamin B12 TSH Urine WBC (Auto) Urine Chloride Urine Total Protein Vancomycin Trough Crossmatch
[2016-11-19] MEDS: VANCOMYCIN VIAL 1,500 MG in NACL 0.9% 500 ML 500 ML IV SCH (12:00)
[2016-11-19] MEDS: DILAUDID IV PRN (12:00)
[2016-11-19] MEDS: LOPRESSOR PO SCH ×2 (12:08→18:34)
[2016-11-19] MEDS ORDERED: MAGNESIUM SULFATE 2GM/50ML 2 GM/50 ML BAG IV ONE (13:00)
[2016-11-19] MEDS: HEPARIN SUB-Q SCH ×2 (13:30→22:00)
[2016-11-19] MEDS: LASIX IV SCH (13:57)
[2016-11-19] MEDS ORDERED: MAGNESIUM SULFATE 4GM/100ML 4 GM/100 ML BAG IV ONE (14:00)
--- NOTE | 2016-11-19 15:04 | Progress Note ---
Assessment and Plan Assessment and plan: 66-year-old woman who presented with lethargy and altered mental status she deteriorated and was intubated and in emergency room, she was managed for DKA and she also developed sepsis due to UTI and right lower extremity ischemia * S/P cardiopulomary arrest. * A/C respiratory failure with hypercapenia * Seizure-Per family prior hx * acute ischemia of right lower ext due to SFA thrombosis- s/p right BKA * LUCY likely vasomotor nephropathy-resolved * Sepsis- Multifactorial * Anemia of chronic disease * Hematuria * Metabolic acidosis * Severe Hypokalemia * hypomagnesemia Plan: * Continue supportive care will obtain a CT of the head to rule out any other pathology. * ct BRAIN still pending. MRI brain, eeg * Nurology consult * Replace potassium and magnessium * Heparin had to be held due to the risk associated considering recent CPR with chest compressions. * Patient remains at risk for right BKA remains poor prognosis and likely will need a conversion to AKA. Holding off heparin which is necessary at this time also worsens that prescription. * Continue subcutaneous insulin and electrolyte replacement * Patient unfortunately has poor prognosis has been unable to be weaned from the vent prior to the cardiopulmonary arrest was doing well on spontaneous breathing and event. * Antibiotics per ID. FLAGY ADDED * Continue Cardizem and beta juan antonio * Monitor electrolytes and hemoglobin. * continue dilantin * DVT and GI prophylaxis * No family present today. I have discussed with nursing staff 35 mins critical care time. History Interval history: Patient seen and examined, still unresponsive with non purposeful movements.continues on full ventilatory support Hospitalist Physical - Physical exam Narrative exam: VITAL SIGNS: Reviewed. GENERAL: vent support Vital signs as documented. HEAD: No signs of head trauma. EYES: Pupils are equal. Extraocular motions intact. EARS: Hearing grossly intact. MOUTH: missing dentition NECK: Trach CHEST: Chest with diminshed CARDIAC: Regular rate and rhythm. S1 and S2, without murmurs, gallops, or rubs. VASCULAR: trace Edema. Peripheral pulses left lower ext ABDOMEN: Soft, distended, tender. No rebound or guarding, and no masses palpated. Bowel Sounds normal. MUSCULOSKELETAL: BKA right lower extremity dressing in place. Some necrosis to the lateral aspect. NEUROLOGIC EXAM: not following commands, opens and closes eyes none purposeful PSYCHIATRIC: unable to assess SKIN: dressing to right lower ext stump - Constitutional Vitals: Temp Pulse Resp BP Pulse Ox 101.3 F H 119 H 28 H 121/67 100 11/19/16 12:00 11/19/16 13:48 11/19/16 06:30 11/19/16 13:48 11/19/16 13:48 General appearance: Present: other (continuous partial seizures on ventilator) Results - Labs CBC & Chem 7: 11/19/16 04:30 11/19/16 04:30 Labs: Laboratory Last Values WBC 10.8 K/mm3 (4.5-11.0) 11/19/16 04:30 RBC 2.92 M/mm3 (3.65-5.03) L 11/19/16 04:30 Hgb 8.8 gm/dl (10.1-14.3) L 11/19/16 04:30 Hct 27.0 % (30.3-42.9) L 11/19/16 04:30 MCV 93 fl (79-97) 11/19/16 04:30 MCH 30 pg (28-32) 11/19/16 04:30 MCHC 33 % (30-34) 11/19/16 04:30 RDW 16.6 % (13.2-15.2) H 11/19/16 04:30 Plt Count 390 K/mm3 (140-440) 11/19/16 04:30 Lymph % (Auto) 11.0 % (13.4-35.0) L 11/18/16 05:45 Bullitt % (Auto) 4.8 % (0.0-7.3) 11/18/16 05:45 Eos % (Auto) 1.0 % (0.0-4.3) 11/18/16 05:45 Baso % (Auto) 0.3 % (0.0-1.8) 11/18/16 05:45 Lymph # 1.5 K/mm3 (1.2-5.4) 11/18/16 05:45 Bullitt # 0.6 K/mm3 (0.0-0.8) 11/18/16 05:45 Eos # 0.1 K/mm3 (0.0-0.4) 11/18/16 05:45 Baso # 0.0 K/mm3 (0.0-0.1) 11/18/16 05:45 Add Manual Diff Complete 11/18/16 13:00 Total Counted 100 11/18/16 13:00 Seg Neutrophils % 82.9 % (40.0-70.0) H 11/18/16 05:45 Seg Neuts % (Manual) 90.0 % (40.0-70.0) H 11/18/16 13:00 Band Neutrophils % 0 % 11/18/16 13:00 Lymphocytes % (Manual) 8.0 % (13.4-35.0) L 11/18/16 13:00 Reactive Lymphs % (Man) 0 % 11/18/16 13:00 Monocytes % (Manual) 2.0 % (0.0-7.3) 11/18/16 13:00 Eosinophils % (Manual) 0 % (0.0-4.3) 11/18/16 13:00 Basophils % (Manual) 0 % (0.0-1.8) 11/18/16 13:00 Metamyelocytes % 0 % 11/18/16 13:00 Myelocytes % 0 % 11/18/16 13:00 Promyelocytes % 0 % 11/18/16 13:00 Blast Cells % 0 % 11/18/16 13:00 Nucleated RBC % Not Reportable 11/18/16 13:00 Seg Neutrophils # 11.0 K/mm3 (1.8-7.7) H 11/18/16 05:45 Seg Neutrophils # Man 11.3 K/mm3 (1.8-7.7) H 11/18/16 13:00 Band Neutrophils # 0.0 K/mm3 11/18/16 13:00 Lymphocytes # (Manual) 1.0 K/mm3 (1.2-5.4) L 11/18/16 13:00 Abs React Lymphs (Man) 0.0 K/mm3 11/18/16 13:00 Monocytes # (Manual) 0.3 K/mm3 (0.0-0.8) 11/18/16 13:00 Eosinophils # (Manual) 0.0 K/mm3 (0.0-0.4) 11/18/16 13:00 Basophils # (Manual) 0.0 K/mm3 (0.0-0.1) 11/18/16 13:00 Metamyelocytes # 0.0 K/mm3 11/18/16 13:00 Myelocytes # 0.0 K/mm3 11/18/16 13:00 Promyelocytes # 0.0 K/mm3 11/18/16 13:00 Blast Cells # 0.0 K/mm3 11/18/16 13:00 Pathologist Review 10/29/16 09:30 WBC Morphology Not Reportable 11/18/16 13:00 Hypersegmented Neuts Not Reportable 11/18/16 13:00 Hyposegmented Neuts Not Reportable 11/18/16 13:00 Hypogranular Neuts Not Reportable 11/18/16 13:00 Hypersegmented Polys TNR 10/17/16 07:08 Smudge Cells Not Reportable 11/18/16 13:00 Toxic Granulation Not Reportable 11/18/16 13:00 Toxic Vacuolation Not Reportable 11/18/16 13:00 Dohle Bodies Not Reportable 11/18/16 13:00 Pelger-Huet Anomaly Not Reportable 11/18/16 13:00 Alka Rods Not Reportable 11/18/16 13:00 Platelet Estimate Consistent w auto 11/18/16 13:00 Clumped Platelets Not Reportable 11/18/16 13:00 Plt Clumps, EDTA Not Reportable 11/18/16 13:00 Large Platelets Not Reportable 11/18/16 13:00 Giant Platelets Not Reportable 11/18/16 13:00 Platelet Satelliting Not Reportable 11/18/16 13:00 Plt Morphology Comment Not Reportable 11/18/16 13:00 RBC Morphology Not Reportable 11/18/16 13:00 Dimorphic RBCs Not Reportable 11/18/16 13:00 Polychromasia Not Reportable 11/18/16 13:00 Hypochromasia Not Reportable 11/18/16 13:00 Poikilocytosis Not Reportable 11/18/16 13:00 Basophilic Stippling TNR 10/17/16 07:08 Anisocytosis 1+ 11/18/16 13:00 Microcytosis Not Reportable 11/18/16 13:00 Macrocytosis Not Reportable 11/18/16 13:00 Spherocytes Not Reportable 11/18/16 13:00 Pappenheimer Bodies Not Reportable 11/18/16 13:00 Sickle Cells Not Reportable 11/18/16 13:00 Target Cells Not Reportable 11/18/16 13:00 Tear Drop Cells Not Reportable 11/18/16 13:00 Ovalocytes Not Reportable 11/18/16 13:00 Stomatocytes Few 11/03/16 00:05 Helmet Cells Not Reportable 11/18/16 13:00 Higgins-[place] Bodies Not Reportable 11/18/16 13:00 Lincoln Rings Not Reportable 11/18/16 13:00 Jeannette Cells Not Reportable 11/18/16 13:00 Bite Cells Not Reportable 11/18/16 13:00 Crenated Cell Not Reportable 11/18/16 13:00 Elliptocytes Not Reportable 11/18/16 13:00 Acanthocytes (Spur) Not Reportable 11/18/16 13:00 Rouleaux Not Reportable 11/18/16 13:00 Hemoglobin C Crystals Not Reportable 11/18/16 13:00 Schistocytes Not Reportable 11/18/16 13:00 Malaria parasites Not Reportable 11/18/16 13:00 David Bodies Not Reportable 11/18/16 13:00 Hem Pathologist Commnt No 11/18/16 13:00 PT 20.1 Sec. (12.2-14.9) H 11/18/16 05:45 INR 1.72 (0.87-1.13) H 11/18/16 05:45 APTT 131.1 Sec. (24.2-36.6) H* 11/18/16 05:45 Heparin Anti-Xa Level 0.51 U.I./ml (0.3-0.7) 11/18/16 11:16 POC ABG pH 7.434 (7.35-7.45) 11/18/16 09:17 POC ABG pCO2 24.3 (35-45) L 11/18/16 09:17 POC ABG pO2 79 (80-105) L 11/18/16 09:17 POC ABG HCO3 16.3 11/18/16 09:17 POC ABG Total CO2 17 11/18/16 09:17 POC ABG O2 Sat 96 11/18/16 09:17 POC ABG Base Excess -8 11/18/16 09:17 VBG pH 7.020 (7.320-7.420) L* 10/13/16 04:22 FiO2 50 % 11/18/16 09:17 Sodium 143 mmol/L (137-145) 11/19/16 04:30 Potassium 3.0 mmol/L (3.6-5.0) L 11/19/16 04:30 Chloride 107.9 mmol/L (98-107) H 11/19/16 04:30 Carbon Dioxide 20 mmol/L (22-30) L 11/19/16 04:30 Anion Gap 18 mmol/L 11/19/16 04:30 BUN 9 mg/dL (7-17) 11/19/16 04:30 Creatinine 0.9 mg/dL (0.7-1.2) 11/19/16 04:30 Estimated GFR > 60 ml/min 11/19/16 04:30 BUN/Creatinine Ratio 10.00 % 11/19/16 04:30 Glucose 231 mg/dL (65-100) H 11/19/16 04:30 POC Glucose 254 (70-105) H 11/19/16 12:08 Osmolality 332 Mosm/kg 10/14/16 07:03 Lactic Acid 1.8 mmol/L (0.7-2.0) 10/14/16 07:03 Calcium 7.1 mg/dL (8.4-10.2) L 11/19/16 04:30 Phosphorus 2.7 mg/dL (2.5-4.5) D 10/21/16 Unknown Magnesium 1.4 mg/dL (1.7-2.3) L 11/19/16 10:00 Total Bilirubin 0.2 mg/dL (0.1-1.2) 11/19/16 04:30 AST 9 units/L (5-40) 11/19/16 04:30 ALT 7 units/L (7-56) 11/19/16 04:30 Alkaline Phosphatase 82 units/L (35-129) 11/19/16 04:30 Ammonia 35.0 umol/L (25-60) 10/13/16 05:40 Total Creatine Kinase 107 units/L (30-135) 10/13/16 04:22 CK-MB (CK-2) 3.1 ng/mL (0.0-4.0) 10/13/16 04:22 CK-MB (CK-2) Rel Index 2.8 (0-4) 10/13/16 04:22 Troponin T < 0.010 ng/mL (0.00-0.029) 10/14/16 18:55 C-Reactive Protein 10.50 mg/dL (0.00-1.30) H 10/13/16 16:14 Total Protein 5.5 g/dL (6.3-8.2) L 11/19/16 04:30 Albumin 2.1 g/dL (3.9-5) L 11/19/16 04:30 Albumin/Globulin Ratio 0.6 % 11/19/16 04:30 Amylase 30 units/L (27-131) 11/10/16 04:30 Lipase 41 units/L (13-60) 11/10/16 04:30 Vitamin B12 976.8 pg/mL (211-911) H 10/22/16 10:25 TSH 0.162 mlU/mL (0.270-4.200) L 10/22/16 14:50 Free T4 0.77 ng/dL (0.76-1.46) 10/22/16 14:50 Urine Color Yellow (Yellow) 11/14/16 19:39 Urine Turbidity Cloudy (Clear) 11/14/16 19:39 Urine pH 6.0 (5.0-7.0) 11/14/16 19:39 Ur Specific Valentine 1.010 (1.003-1.030) 11/14/16 19:39 Urine Protein 30 mg/dl mg/dL (Negative) 11/14/16 19:39 Urine Glucose (UA) 50 mg/dL (Negative) 11/14/16 19:39 Urine Ketones 20 mg/dL (Negative) 11/14/16 19:39 Urine Blood Lg (Negative) 11/14/16 19:39 Urine Nitrite Neg (Negative) 11/14/16 19:39 Urine Bilirubin Neg (Negative) 11/14/16 19:39 Urine Urobilinogen < 2.0 mg/dL (<2.0) 11/14/16 19:39 Ur Leukocyte Esterase Sm (Negative) 11/14/16 19:39 Urine WBC (Auto) 3.0 /HPF (0.0-6.0) 11/14/16 19:39 Urine RBC (Auto) > 182.0 /HPF (0.0-6.0) 11/14/16 19:39 U Epithel Cells (Auto) 1.0 /HPF (0-13.0) 10/15/16 11:05 Urine Bacteria (Auto) 1+ /HPF (Negative) 11/14/16 19:39 Urine Mucus Few /HPF 11/14/16 19:39 Urine Yeast (Budding) 2+ /HPF 10/15/16 11:05 Urine Osmolality 487 Mosm/kg 10/13/16 Unknown Urine Creatinine < 4.2 mg/dL (0.1-20.0) 10/13/16 Unknown Protein/Creatinin Ratio 0.00 10/13/16 Unknown Urine Sodium 10 mEq/L 10/13/16 Unknown Urine Potassium 1.00 mEq/L 10/13/16 Unknown Urine Chloride 10.0 mEq/L (110-250) L 10/13/16 Unknown Urine Total Protein < 4 mg/dL (5-11.8) L 10/13/16 Unknown Vancomycin Trough 35.4 ug/mL (5.0-20.0) H 11/08/16 20:45 Random Vancomycin 19.4 ug/mL (0-40.0) 11/11/16 06:15 Ketones 107.3 mg/dL (0.2-2.8) H 10/13/16 04:22 Blood Type A POSITIVE 11/03/16 18:01 Antibody Screen Negative 11/03/16 18:01 Crossmatch See Detail 11/03/16 18:01
--- NOTE | 2016-11-19 15:31 | Cat Scan Report ---
CT scan of head without contrast: History: Change of mental status. Findings: Ventricles are normal in size and midline in location. No evidence for acute ischemia, hemorrhage or mass. No extra axial fluid collection. Normal brainstem and cerebellum. Normal sinuses and mastoid air cells. Impression: No acute intracranial abnormality.
[2016-11-19] MEDS: LEVEMIR SUB-Q SCH (16:00)
--- NOTE | 2016-11-19 18:33 | Progress Note ---
Assessment and Plan Pt s/p Cardiopulmonary arrest over the weekend. Heparin gtt held. BKA incision intact. No erythema or drainage noted. Tissue detention viability questionable. Tissue necrosis appears superficial at present. Nothing to do for wounds at present. Continue to offload pressure, and good LWC. Continue supportive care. - Patient Problems (1) Ischemia of right lower extremity Current Visit: Yes Status: Acute (2) DKA (diabetic ketoacidoses) Current Visit: Yes Status: Acute Qualifiers: Diabetes mellitus type: D Diabetes mellitus complication detail: D (3) Acute on chronic renal failure Current Visit: Yes Status: Acute (4) Altered mental status Current Visit: Yes Status: Acute Qualifiers: Altered mental status type: A Coma depth: C Coma timing: C (5) Diabetes Current Visit: Yes Status: Chronic Qualifiers: Diabetes mellitus type: D Diabetes mellitus complication status: D Diabetes mellitus complication detail: D Diabetic retinopathy severity: D Proliferative retinopathy type: P Diabetes mellitus macular edema: D Diabetes mellitus termite technician insulin use: D Laterality: L Chronic kidney disease stage: C (6) Dyslipidemia Current Visit: No Status: Chronic (7) Hypertension Current Visit: No Status: Chronic Qualifiers: Hypertension type: H Subjective Date of service: 11/19/16 Principal diagnosis: respiratory failure on mechanical ventilatory support, DKA Interval history: Pt on vent. Does not respond to verbal stimulus. Objective - Constitutional Vitals: Vital Signs - 12hr 11/19/16 11/19/16 11/19/16 06:30 08:00 08:10 Temperature 99.0 F Pulse Rate 115 H 116 H Pulse Rate [ 118 H Apical] Pulse Rate [ 118 H From Monitor] Pulse Rate [ 118 H Left Radial] Respiratory 28 H Rate Respiratory Rate [Right Leg ] Blood Pressure 115/61 132/68 O2 Sat by Pulse 99 100 Oximetry 11/19/16 11/19/16 11/19/16 12:00 12:08 13:48 Temperature 101.3 F H Pulse Rate 127 H 119 H Pulse Rate [ Apical] Pulse Rate [ From Monitor] Pulse Rate [ Left Radial] Respiratory Rate Respiratory 26 H Rate [Right Leg ] Blood Pressure 148/84 121/67 O2 Sat by Pulse 100 Oximetry 11/19/16 11/19/16 16:00 17:48 Temperature 99.9 F H Pulse Rate 119 H Pulse Rate [ Apical] Pulse Rate [ From Monitor] Pulse Rate [ Left Radial] Respiratory Rate Respiratory Rate [Right Leg ] Blood Pressure 114/61 O2 Sat by Pulse 100 Oximetry General appearance: Present: no acute distress - EENT Eyes: EOM intact ENT: hearing intact - Respiratory Respiratory effort: other (on mechanical vent by trach) Extremities: abnormal (wounds eval'd. See pictures) - Labs CBC & Chem 7: 11/19/16 04:30 11/19/16 04:30 Labs: Abnormal lab results 11/18/16 11/19/16 11/19/16 Range/Units 23:27 04:30 04:30 RBC 2.92 L (3.65-5.03) M/mm3 Hgb 8.8 L (10.1-14.3) gm/dl Hct 27.0 L (30.3-42.9) % RDW 16.6 H (13.2-15.2) % Potassium 3.0 L (3.6-5.0) mmol/L Chloride 107.9 H (98-107) mmol/L Carbon Dioxide 20 L (22-30) mmol/L Glucose 231 H (65-100) mg/dL POC Glucose 268 H (70-105) Calcium 7.1 L (8.4-10.2) mg/dL Magnesium (1.7-2.3) mg/dL Total Protein 5.5 L (6.3-8.2) g/dL Albumin 2.1 L (3.9-5) g/dL 11/19/16 11/19/16 11/19/16 Range/Units 04:40 06:40 10:00 RBC (3.65-5.03) M/mm3 Hgb (10.1-14.3) gm/dl Hct (30.3-42.9) % RDW (13.2-15.2) % Potassium (3.6-5.0) mmol/L Chloride (98-107) mmol/L Carbon Dioxide (22-30) mmol/L Glucose (65-100) mg/dL POC Glucose 267 H 244 H (70-105) Calcium (8.4-10.2) mg/dL Magnesium 1.4 L (1.7-2.3) mg/dL Total Protein (6.3-8.2) g/dL Albumin (3.9-5) g/dL 11/19/16 11/19/16 Range/Units 12:08 18:10 RBC (3.65-5.03) M/mm3 Hgb (10.1-14.3) gm/dl Hct (30.3-42.9) % RDW (13.2-15.2) % Potassium (3.6-5.0) mmol/L Chloride (98-107) mmol/L Carbon Dioxide (22-30) mmol/L Glucose (65-100) mg/dL POC Glucose 254 H 265 H (70-105) Calcium (8.4-10.2) mg/dL Magnesium (1.7-2.3) mg/dL Total Protein (6.3-8.2) g/dL Albumin (3.9-5) g/dL
[2016-11-19] MEDS: TYLENOL PO PRN (23:53)
[2016-11-20] MEDS: LOPRESSOR PO SCH ×4 (00:07→17:00)
[2016-11-20] MEDS: REGLAN IV SCH ×4 (00:11→17:01)
[2016-11-20] MEDS: LASIX IV SCH ×2 (02:39→12:56)
[2016-11-20 05:46] LABS: Anion Gap 18 mmol/L; BUN/Creatinine Ratio 11.11; Blood Urea Nitrogen 10 mg/dL (7-17); Calcium 7.2 mg/dL (8.4-10.2); Carbon Dioxide 20 mmol/L (22-30); Chloride 107.4 mmol/L (98-107); Glucose 140 mg/dL (65-100); Potassium 3.4 mmol/L (3.6-5.0); Sodium 142 mmol/L (137-145)
[2016-11-20] MEDS: DILANTIN IV SCH ×3 (06:34→22:03)
[2016-11-20] MEDS: HEPARIN SUB-Q SCH ×3 (06:35→22:03)
--- NOTE | 2016-11-20 08:12 | XRay Report ---
CHEST 1 VIEW INDICATION: Pulmonary edema. COMPARISON: Yesterday. FINDINGS: Portable, frontal chest radiograph, 2:21 AM, 11/20/2016 reveals stable cardiomediastinal silhouette, supporting devices, and osseous structures, providing for the difference in technique. Mild increased/denser congestive hazy opacities throughout both lungs, greatest towards the bases. CONCLUSION: Mild radiographic worsening of pulmonary edema. Stable supporting devices. Please correlate. Thank you for the opportunity to participate in this patient's care.
--- NOTE | 2016-11-20 09:34 | Electroencephalogram Report ---
Electroencephalogram EEG Date of exam: 11/19/16 History: 66 YO F s/p cardiac arrest w/ facial twitching. Impression: Abnormal 20 minute routine EEG in coma. There are findings to suggest diffuse severe-profound nonspecific cerebral dysfunction with findings associated with anoxic encephalopathy and cortical irritability. The absence of EEG reactivity to stimulation is considered a poor prognostic indicator. There are no findings to suggest epileptiform discharges or electrographic seizures during the study. The patient had witnessed facial twitching during the study, so these movements are non-epileptic in etiology. Description: There is no clear waking background. The background present shows discontinuous mixed theta and delta activity w/ inappropriate organization with poorly- defined anterior posterior voltage and frequency gradients. There is no reactivity or variability. There are no findings of sleep. There are abundant 0.33-0.5 Hz frontally predominant generalized discharges. There were no clear epileptiform discharges or electrographic seizures. Interpretation: This is a digitally acquired 21-channel electroencephalogram. Both bipolar and referential montages were used in interpretation. Electrodes were placed in accordance with the International 10-20 system.
--- NOTE | 2016-11-20 09:36 | Progress Note ---
Assessment and Plan s/p EEG - findings consistent with anoxic encephalopathy and cortical irritability per neurology. Cont Lopressor, 25mg Q6H. Hold for SBP <100 and HR <60. Replete lytes PRN to maintatin serum K+ ~4 and serum Mg ~2. Prognosis is guarded. The patient has been seen in conjunction with Dr. Lama who agrees with the assessment and plan of care. - Patient Problems (1) Cardiac arrest Current Visit: Yes Status: Resolved (2) Sinus tachycardia Current Visit: Yes Status: Acute (3) Acute respiratory failure with hypercapnia Current Visit: Yes Status: Acute (4) Sepsis Current Visit: Yes Status: Acute Qualifiers: Sepsis type: S (5) PVD (peripheral vascular disease) Current Visit: Yes Status: Chronic (6) S/P BKA (below knee amputation) Current Visit: Yes Status: Chronic Qualifiers: Laterality: L (7) DVT (deep venous thrombosis) Current Visit: Yes Status: Acute Qualifiers: DVT location: D Affected thrombotic vein of extremity: A Laterality: L Chronicity: C (8) Anemia Current Visit: Yes Status: Acute Qualifiers: Anemia type: A Iron deficiency anemia type: I Vitamin B12 deficiency anemia type: V Folate deficiency anemia type: F Bone marrow failure anemia type: B Hemolytic anemia type: H Other causes of anemia: O (9) Diabetes Current Visit: Yes Status: Chronic Qualifiers: Diabetes mellitus type: D Diabetes mellitus complication status: D Diabetes mellitus complication detail: D Diabetic retinopathy severity: D Proliferative retinopathy type: P Diabetes mellitus macular edema: D Diabetes mellitus long term care phlebotomist insulin use: D Laterality: L Chronic kidney disease stage: C Subjective Date of service: 11/20/16 Principal diagnosis: respiratory failure on mechanical ventilatory support, DKA Interval history: remains trached, on vent. In ST on tele with HR 110s - 120s, BPs stable, off pressors. Family at bedside. Went for brain MRI this AM. Objective Last Vital Signs Temp 100.5 F H 11/20/16 08:00 Pulse 114 H 11/20/16 08:00 Resp 19 11/20/16 08:00 BP 118/77 11/20/16 08:00 Pulse Ox 100 11/20/16 08:00 - Physical Examination General: No Apparent Distress HEENT: Positive: Normocephaly, Mucus Membranes Moist Neck: Positive: neck supple, trachea midline, Other (trach) Cardiac: Positive: Regular Rate, S1/S2, Tachycardia Lungs: Positive: Decreased Breath Sounds, Ventilated Respirations, Other ( trached) Neuro: Positive: Other (DARRIAN; no purposeful movements noted) Abdomen: Positive: Soft. Negative: Tender Skin: Positive: Clear. Negative: Rash Extremities: Present: Other (right below-knee amputation left leg no edema) - Labs and Meds Comprehensive Metabolic Panel 11/20/16 Range/Units 05:00 Sodium 142 (137-145) mmol/L Potassium 3.4 L (3.6-5.0) mmol/L Chloride 107.4 H (98-107) mmol/L Carbon Dioxide 20 L (22-30) mmol/L BUN 10 (7-17) mg/dL Creatinine 0.9 (0.7-1.2) mg/dL Glucose 140 H (65-100) mg/dL Calcium 7.2 L (8.4-10.2) mg/dL - Imaging and Cardiology Echo: report reviewed (tds 10/24/2016 normal LV function with no significant regurgitations) - Telemetry EKG Rhythm: Sinus Tachycardia - Allied health notes Allied health notes reviewed: RT
--- NOTE | 2016-11-20 10:01 | Magnetic Resonance Report ---
MRI scan of brain: History: Seizures. Technique: Multiplanar multisequence images were obtained without contrast injection. Findings: No evidence of restricted diffusion. Ventricles are normal in size and midline in location. No evidence of acute ischemia or hemorrhage. No extra-axial fluid collection. Periventricular area of hyperintensity on flair and T2-weighted images. Normal sinuses. Focal area of fluid collection in the right and left mastoid air cells probably related to acute mastoiditis. Impression: No evidence of acute intracranial abnormality. Small vessel ischemic changes. Acute mastoiditis.
[2016-11-20] MEDS: FLAGYL 500 MG/100 ML 500 MG/100 ML BAG IV SCH ×2 (10:21→16:54)
[2016-11-20] MEDS: VANCOMYCIN VIAL 1,500 MG in NACL 0.9% 500 ML 500 ML IV SCH (10:22)
[2016-11-20] MEDS: LEVEMIR SUB-Q SCH (10:22)
[2016-11-20] MEDS: PLAVIX PO SCH (10:23)
[2016-11-20] MEDS: PEPCID PO SCH ×2 (10:23→22:03)
--- NOTE | 2016-11-20 10:40 | Progress Note ---
Assessment and Plan - Patient Problems (1) Acute respiratory failure with hypercapnia Current Visit: Yes Status: Acute Plan to address problem: - continue aspiration precautions / VAP bundles - continue bronchodilators and pulmonary toilet - continue to wean oxygen to keep sats > 94% - hold daily bedside SBT's today while neuro-imaging is conducted - cardiac arrest and post arrest encephalopathy makes weaning likelyhood even poorer - CXR suggest's increasing pulmonary edema and will diuress (2) Altered mental status Current Visit: Yes Status: Acute Qualifiers: Altered mental status type: A Coma depth: C Coma timing: C Plan to address problem: - likely anoxic encephalopathy at this point - no active grand-mal seizures - seen by neurology and will follow their recommendations - reviewed EEG and MRI reports and appears overall prognosis guarded at best (3) LUCY (acute kidney injury) Current Visit: Yes Status: Acute Plan to address problem: - resolved - following I's & O's - short course of lasix re: pulmonary edema - replace potassium (4) DKA (diabetic ketoacidoses) Current Visit: Yes Status: Acute Qualifiers: Diabetes mellitus type: D Diabetes mellitus complication detail: D Plan to address problem: - resolved - continue SSI (5) Sepsis Current Visit: No Status: Acute Qualifiers: Sepsis type: S Plan to address problem: - complete anti-infectives per ID recs - follow clinically - trend lactate and CRP prn (6) Emesis Current Visit: Yes Status: Acute Qualifiers: Vomiting type: V Vomiting Intractability: V Nausea presence: N Plan to address problem: - continue increased reglan dose - reduced fentanyl dose and using other sedatives/anxiolytics (re: opiates and G.I. motility) - continue aspiration precautions - GI input appreciated - improved (7) Discharge planning issues Current Visit: No Status: Acute Plan to address problem: - cardiac arrest and potential anoxic encephalopathy makes prognosis more guarded now - discussed care plan at length with ; daughter and granddaughter in room - LTAC evaluation ...for now remains critically ill on life sustaining treatments including MVS and at high risk for further deterioration including ...32'' CCT Subjective Date of service: 11/20/16 Principal diagnosis: respiratory failure on mechanical ventilatory support, DKA Interval history: Seen and examined at bedside; 24 hour events reviewed; nursing and respiratory care staff consulted; no adverse overnight events reported to me; resting in bed ; no clinical seizure activity; tolerating tube feeds well so far; no emesis or overt aspiration Objective Vital Signs - 12hr 11/19/16 11/19/16 11/19/16 23:00 23:30 23:33 Temperature Pulse Rate 124 H 124 H Pulse Rate [ From Monitor] Respiratory 28 H 34 H Rate Blood Pressure 133/77 129/71 O2 Sat by Pulse 100 100 Oximetry O2 Sat by Pulse 100 Oximetry [ Assessment] 11/19/16 11/19/16 11/19/16 23:34 23:35 23:53 Temperature Pulse Rate 124 H 125 H Pulse Rate [ From Monitor] Respiratory 34 H 16 Rate Blood Pressure 129/71 129/71 O2 Sat by Pulse 100 100 Oximetry O2 Sat by Pulse Oximetry [ Assessment] 11/20/16 11/20/16 11/20/16 00:00 00:07 00:31 Temperature 103.0 F H Pulse Rate 123 H 124 H 123 H Pulse Rate [ 117 H From Monitor] Respiratory 31 H 33 H Rate Blood Pressure 127/78 127/78 120/70 O2 Sat by Pulse 100 100 Oximetry O2 Sat by Pulse Oximetry [ Assessment] 11/20/16 11/20/16 11/20/16 01:01 01:30 02:00 Temperature Pulse Rate 119 H 116 H 114 H Pulse Rate [ From Monitor] Respiratory 36 H 17 18 Rate Blood Pressure 100/48 104/52 99/46 O2 Sat by Pulse 100 100 100 Oximetry O2 Sat by Pulse Oximetry [ Assessment] 11/20/16 11/20/16 11/20/16 02:30 03:01 03:11 Temperature Pulse Rate 115 H 115 H Pulse Rate [ From Monitor] Respiratory 36 H Rate Blood Pressure 120/78 120/78 127/76 O2 Sat by Pulse 100 100 100 Oximetry O2 Sat by Pulse Oximetry [ Assessment] 11/20/16 11/20/16 11/20/16 03:30 04:00 04:30 Temperature 99.8 F H Pulse Rate 116 H 115 H 115 H Pulse Rate [ 117 H From Monitor] Respiratory 34 H 18 21 Rate Blood Pressure 127/76 112/76 119/76 O2 Sat by Pulse 100 100 100 Oximetry O2 Sat by Pulse Oximetry [ Assessment] 11/20/16 11/20/16 11/20/16 05:00 05:30 06:00 Temperature Pulse Rate 116 H 112 H 110 H Pulse Rate [ From Monitor] Respiratory 21 17 20 Rate Blood Pressure 123/74 101/64 97/61 O2 Sat by Pulse 100 100 100 Oximetry O2 Sat by Pulse Oximetry [ Assessment] 11/20/16 11/20/16 11/20/16 06:30 07:00 07:30 Temperature Pulse Rate 110 H 111 H 112 H Pulse Rate [ From Monitor] Respiratory 31 H 30 H 16 Rate Blood Pressure 112/76 112/75 115/75 O2 Sat by Pulse 100 100 Oximetry O2 Sat by Pulse Oximetry [ Assessment] 11/20/16 11/20/16 11/20/16 07:35 07:40 08:00 Temperature 100.5 F H Pulse Rate 110 H 114 H Pulse Rate [ 114 H From Monitor] Respiratory 19 Rate Blood Pressure 118/77 O2 Sat by Pulse 98 100 Oximetry O2 Sat by Pulse 96 Oximetry [ Assessment] Constitutional: other (Patient S/P CPR. Patient likely has anoxic encephalopathy ) Eyes: non-icteric ENT: oropharynx moist Neck: supple, no lymphadenopathy Effort: mildly labored Ascultation: Bilateral: diminished breath sounds, rales Cardiovascular: regular rate and rhythm, other (tachycardia) Gastrointestinal: normoactive bowel sounds, soft, non-tender, non-distended Integumentary: normal Extremities: no cyanosis, no edema, no ischemia or petechiae, other (s/p right BKA) Neurologic: unable to assess, other (encephalopathic) Psychiatric: other (encephalopathic) CBC and BMP: 11/19/16 04:30 11/20/16 05:00 ABG, PT/INR, D-dimer: ABG POC ABG pH 7.434 (7.35-7.45) 11/18/16 09:17 POC ABG pCO2 24.3 (35-45) L 11/18/16 09:17 POC ABG pO2 79 (80-105) L 11/18/16 09:17 POC ABG HCO3 16.3 11/18/16 09:17 POC ABG Total CO2 17 11/18/16 09:17 POC ABG O2 Sat 96 11/18/16 09:17 PT/INR, D-dimer PT 20.1 Sec. (12.2-14.9) H 11/18/16 05:45 INR 1.72 (0.87-1.13) H 11/18/16 05:45 Abnormal lab findings: Abnormal Labs 10/13/16 10/13/16 10/13/16 06:38 06:38 07:23 WBC RBC Hgb Hct MCV RDW Plt Count Lymph % (Auto) [place] % (Auto) [place] # Seg Neutrophils % Seg Neuts % (Manual) Lymphocytes % (Manual) Monocytes % (Manual) Basophils % (Manual) Nucleated RBC % Seg Neutrophils # Seg Neutrophils # Man Lymphocytes # (Manual) Monocytes # (Manual) Eosinophils # (Manual) Basophils # (Manual) PT INR APTT Heparin Anti-Xa Level POC ABG pH POC ABG pCO2 POC ABG pO2 Sodium Potassium 6.2 H* Chloride Carbon Dioxide 8 L* BUN 85 H Creatinine 2.8 H Glucose 602 H* POC Glucose 495 H Calcium 7.9 L Phosphorus 6.9 H D Magnesium 3.0 H AST Alkaline Phosphatase C-Reactive Protein Total Protein Albumin Lipase Vitamin B12 TSH Urine WBC (Auto) Urine Chloride Urine Total Protein Vancomycin Trough Crossmatch 10/13/16 10/13/16 10/13/16 08:49 08:55 10:12 WBC RBC Hgb Hct MCV RDW Plt Count Lymph % (Auto) [place] % (Auto) [place] # Seg Neutrophils % Seg Neuts % (Manual) Lymphocytes % (Manual) Monocytes % (Manual) Basophils % (Manual) Nucleated RBC % Seg Neutrophils # Seg Neutrophils # Man Lymphocytes # (Manual) Monocytes # (Manual) Eosinophils # (Manual) Basophils # (Manual) PT INR APTT Heparin Anti-Xa Level POC ABG pH POC ABG pCO2 POC ABG pO2 Sodium Potassium 5.6 H Chloride Carbon Dioxide 11 L BUN 77 H Creatinine 2.7 H Glucose 457 H POC Glucose > 500 H 424 H Calcium 8.0 L Phosphorus Magnesium AST Alkaline Phosphatase C-Reactive Protein Total Protein Albumin Lipase Vitamin B12 TSH Urine WBC (Auto) Urine Chloride Urine Total Protein Vancomycin Trough Crossmatch 10/13/16 10/13/16 10/13/16 10:44 11:22 12:20 WBC RBC Hgb Hct MCV RDW Plt Count Lymph % (Auto) [place] % (Auto) [place] # Seg Neutrophils % Seg Neuts % (Manual) Lymphocytes % (Manual) Monocytes % (Manual) Basophils % (Manual) Nucleated RBC % Seg Neutrophils # Seg Neutrophils # Man Lymphocytes # (Manual) Monocytes # (Manual) Eosinophils # (Manual) Basophils # (Manual) PT INR APTT Heparin Anti-Xa Level POC ABG pH POC ABG pCO2 POC ABG pO2 Sodium Potassium 5.4 H Chloride Carbon Dioxide 14 L BUN 72 H Creatinine 2.6 H Glucose 383 H POC Glucose 391 H 313 H Calcium 8.2 L Phosphorus Magnesium AST Alkaline Phosphatase C-Reactive Protein Total Protein Albumin Lipase Vitamin B12 TSH Urine WBC (Auto) Urine Chloride Urine Total Protein Vancomycin Trough Crossmatch 10/13/16 10/13/16 10/13/16 13:32 14:44 15:57 WBC RBC Hgb Hct MCV RDW Plt Count Lymph % (Auto) [place] % (Auto) [place] # Seg Neutrophils % Seg Neuts % (Manual) Lymphocytes % (Manual) Monocytes % (Manual) Basophils % (Manual) Nucleated RBC % Seg Neutrophils # Seg Neutrophils # Man Lymphocytes # (Manual) Monocytes # (Manual) Eosinophils # (Manual) Basophils # (Manual) PT INR APTT Heparin Anti-Xa Level POC ABG pH POC ABG pCO2 POC ABG pO2 Sodium Potassium Chloride Carbon Dioxide BUN Creatinine Glucose POC Glucose 296 H 210 H 190 H Calcium Phosphorus Magnesium AST Alkaline Phosphatase C-Reactive Protein Total Protein Albumin Lipase Vitamin B12 TSH Urine WBC (Auto) Urine Chloride Urine Total Protein Vancomycin Trough Crossmatch 10/13/16 10/13/16 10/13/16 16:14 16:14 17:17 WBC RBC Hgb Hct MCV RDW Plt Count Lymph % (Auto) [place] % (Auto) [place] # Seg Neutrophils % Seg Neuts % (Manual) Lymphocytes % (Manual) Monocytes % (Manual) Basophils % (Manual) Nucleated RBC % Seg Neutrophils # Seg Neutrophils # Man Lymphocytes # (Manual) Monocytes # (Manual) Eosinophils # (Manual) Basophils # (Manual) PT INR APTT Heparin Anti-Xa Level POC ABG pH POC ABG pCO2 POC ABG pO2 Sodium Potassium Chloride Carbon Dioxide 17 L BUN 58 H Creatinine 1.8 H Glucose 172 H POC Glucose 193 H Calcium 7.7 L Phosphorus Magnesium AST Alkaline Phosphatase C-Reactive Protein 10.50 H Total Protein Albumin Lipase Vitamin B12 TSH Urine WBC (Auto) Urine Chloride Urine Total Protein Vancomycin Trough Crossmatch 10/13/16 10/13/16 10/13/16 17:55 18:32 19:41 WBC RBC Hgb Hct MCV RDW Plt Count Lymph % (Auto) [place] % (Auto) [place] # Seg Neutrophils % Seg Neuts % (Manual) Lymphocytes % (Manual) Monocytes % (Manual) Basophils % (Manual) Nucleated RBC % Seg Neutrophils # Seg Neutrophils # Man Lymphocytes # (Manual) Monocytes # (Manual) Eosinophils # (Manual) Basophils # (Manual) PT INR APTT Heparin Anti-Xa Level POC ABG pH POC ABG pCO2 30.6 L POC ABG pO2 218 H Sodium Potassium Chloride Carbon Dioxide BUN Creatinine Glucose POC Glucose 192 H 177 H Calcium Phosphorus Magnesium AST Alkaline Phosphatase C-Reactive Protein Total Protein Albumin Lipase Vitamin B12 TSH Urine WBC (Auto) Urine Chloride Urine Total Protein Vancomycin Trough Crossmatch 10/13/16 10/13/16 10/13/16 20:54 22:07 23:13 WBC RBC Hgb Hct MCV RDW Plt Count Lymph % (Auto) [place] % (Auto) [place] # Seg Neutrophils % Seg Neuts % (Manual) Lymphocytes % (Manual) Monocytes % (Manual) Basophils % (Manual) Nucleated RBC % Seg Neutrophils # Seg Neutrophils # Man Lymphocytes # (Manual) Monocytes # (Manual) Eosinophils # (Manual) Basophils # (Manual) PT INR APTT Heparin Anti-Xa Level POC ABG pH POC ABG pCO2 POC ABG pO2 Sodium Potassium Chloride Carbon Dioxide BUN Creatinine Glucose POC Glucose 178 H 160 H 168 H Calcium Phosphorus Magnesium AST Alkaline Phosphatase C-Reactive Protein Total Protein Albumin Lipase Vitamin B12 TSH Urine WBC (Auto) Urine Chloride Urine Total Protein Vancomycin Trough Crossmatch 10/13/16 10/13/16 10/14/16 23:25 Unknown 00:21 WBC RBC Hgb Hct MCV RDW Plt Count Lymph % (Auto) [place] % (Auto) [place] # Seg Neutrophils % Seg Neuts % (Manual) Lymphocytes % (Manual) Monocytes % (Manual) Basophils % (Manual) Nucleated RBC % Seg Neutrophils # Seg Neutrophils # Man Lymphocytes # (Manual) Monocytes # (Manual) Eosinophils # (Manual) Basophils # (Manual) PT INR APTT Heparin Anti-Xa Level POC ABG pH POC ABG pCO2 POC ABG pO2 Sodium 148 H Potassium Chloride 114.6 H Carbon Dioxide 17 L BUN 56 H Creatinine 1.6 H Glucose 151 H POC Glucose 171 H Calcium 7.8 L Phosphorus Magnesium AST Alkaline Phosphatase C-Reactive Protein Total Protein Albumin Lipase Vitamin B12 TSH Urine WBC (Auto) Urine Chloride 10.0 L Urine Total Protein < 4 L Vancomycin Trough Crossmatch 10/14/16 10/14/16 10/14/16 01:22 02:29 03:30 WBC RBC Hgb Hct MCV RDW Plt Count Lymph % (Auto) [place] % (Auto) [place] # Seg Neutrophils % Seg Neuts % (Manual) Lymphocytes % (Manual) Monocytes % (Manual) Basophils % (Manual) Nucleated RBC % Seg Neutrophils # Seg Neutrophils # Man Lymphocytes # (Manual) Monocytes # (Manual) Eosinophils # (Manual) Basophils # (Manual) PT INR APTT Heparin Anti-Xa Level POC ABG pH POC ABG pCO2 POC ABG pO2 Sodium Potassium Chloride Carbon Dioxide BUN Creatinine Glucose POC Glucose 144 H 136 H 143 H Calcium Phosphorus Magnesium AST Alkaline Phosphatase C-Reactive Protein Total Protein Albumin Lipase Vitamin B12 TSH Urine WBC (Auto) Urine Chloride Urine Total Protein Vancomycin Trough Crossmatch 10/14/16 10/14/16 10/14/16 04:28 05:16 05:44 WBC RBC Hgb Hct MCV RDW Plt Count Lymph % (Auto) [place] % (Auto) [place] # Seg Neutrophils % Seg Neuts % (Manual) Lymphocytes % (Manual) Monocytes % (Manual) Basophils % (Manual) Nucleated RBC % Seg Neutrophils # Seg Neutrophils # Man Lymphocytes # (Manual) Monocytes # (Manual) Eosinophils # (Manual) Basophils # (Manual) PT INR APTT Heparin Anti-Xa Level POC ABG pH POC ABG pCO2 28.2 L POC ABG pO2 125 H Sodium Potassium Chloride Carbon Dioxide BUN Creatinine Glucose POC Glucose 133 H 160 H Calcium Phosphorus Magnesium AST Alkaline Phosphatase C-Reactive Protein Total Protein Albumin Lipase Vitamin B12 TSH Urine WBC (Auto) Urine Chloride Urine Total Protein Vancomycin Trough Crossmatch 10/14/16 10/14/16 10/14/16 06:12 06:45 07:03 WBC RBC Hgb Hct MCV RDW Plt Count Lymph % (Auto) [place] % (Auto) [place] # Seg Neutrophils % Seg Neuts % (Manual) Lymphocytes % (Manual) Monocytes % (Manual) Basophils % (Manual) Nucleated RBC % Seg Neutrophils # Seg Neutrophils # Man Lymphocytes # (Manual) Monocytes # (Manual) Eosinophils # (Manual) Basophils # (Manual) PT INR APTT Heparin Anti-Xa Level POC ABG pH POC ABG pCO2 POC ABG pO2 Sodium 149 H Potassium Chloride 115.4 H Carbon Dioxide 17 L BUN 45 H Creatinine 1.5 H Glucose 139 H POC Glucose 149 H Calcium 7.4 L Phosphorus 1.0 L D Magnesium AST Alkaline Phosphatase C-Reactive Protein Total Protein Albumin Lipase Vitamin B12 TSH Urine WBC (Auto) Urine Chloride Urine Total Protein Vancomycin Trough Crossmatch 10/14/16 10/14/16 10/14/16 07:03 08:02 09:16 WBC RBC Hgb Hct MCV RDW Plt Count Lymph % (Auto) [place] % (Auto) [place] # Seg Neutrophils % Seg Neuts % (Manual) Lymphocytes % (Manual) Monocytes % (Manual) Basophils % (Manual) Nucleated RBC % Seg Neutrophils # Seg Neutrophils # Man Lymphocytes # (Manual) Monocytes # (Manual) Eosinophils # (Manual) Basophils # (Manual) PT INR APTT Heparin Anti-Xa Level POC ABG pH POC ABG pCO2 POC ABG pO2 Sodium Potassium Chloride Carbon Dioxide BUN Creatinine Glucose POC Glucose 156 H 158 H Calcium Phosphorus Magnesium AST Alkaline Phosphatase C-Reactive Protein Total Protein Albumin Lipase 738 H Vitamin B12 TSH Urine WBC (Auto) Urine Chloride Urine Total Protein Vancomycin Trough Crossmatch 10/14/16 10/14/16 10/14/16 10:26 11:03 11:57 WBC RBC Hgb Hct MCV RDW Plt Count Lymph % (Auto) [place] % (Auto) [place] # Seg Neutrophils % Seg Neuts % (Manual) Lymphocytes % (Manual) Monocytes % (Manual) Basophils % (Manual) Nucleated RBC % Seg Neutrophils # Seg Neutrophils # Man Lymphocytes # (Manual) Monocytes # (Manual) Eosinophils # (Manual) Basophils # (Manual) PT INR APTT Heparin Anti-Xa Level POC ABG pH 7.198 L POC ABG pCO2 47.5 H POC ABG pO2 Sodium Potassium Chloride Carbon Dioxide BUN Creatinine Glucose POC Glucose 174 H 189 H Calcium Phosphorus Magnesium AST Alkaline Phosphatase C-Reactive Protein Total Protein Albumin Lipase Vitamin B12 TSH Urine WBC (Auto) Urine Chloride Urine Total Protein Vancomycin Trough Crossmatch 10/14/16 10/14/16 10/14/16 12:02 12:02 13:11 WBC 13.4 H RBC 3.60 L Hgb Hct MCV 98 H D RDW 13.1 L Plt Count Lymph % (Auto) [place] % (Auto) [place] # Seg Neutrophils % Seg Neuts % (Manual) Lymphocytes % (Manual) Monocytes % (Manual) Basophils % (Manual) Nucleated RBC % Seg Neutrophils # Seg Neutrophils # Man Lymphocytes # (Manual) Monocytes # (Manual) Eosinophils # (Manual) Basophils # (Manual) PT INR APTT Heparin Anti-Xa Level POC ABG pH POC ABG pCO2 POC ABG pO2 Sodium Potassium Chloride 110.7 H Carbon Dioxide 19 L BUN 38 H Creatinine 1.4 H Glucose 182 H POC Glucose 173 H Calcium 7.5 L Phosphorus Magnesium AST Alkaline Phosphatase C-Reactive Protein Total Protein Albumin Lipase Vitamin B12 TSH Urine WBC (Auto) Urine Chloride Urine Total Protein Vancomycin Trough Crossmatch 10/14/16 10/14/16 10/14/16 14:24 15:31 16:36 WBC RBC Hgb Hct MCV RDW Plt Count Lymph % (Auto) [place] % (Auto) [place] # Seg Neutrophils % Seg Neuts % (Manual) Lymphocytes % (Manual) Monocytes % (Manual) Basophils % (Manual) Nucleated RBC % Seg Neutrophils # Seg Neutrophils # Man Lymphocytes # (Manual) Monocytes # (Manual) Eosinophils # (Manual) Basophils # (Manual) PT INR APTT Heparin Anti-Xa Level POC ABG pH POC ABG pCO2 POC ABG pO2 Sodium Potassium Chloride Carbon Dioxide BUN Creatinine Glucose POC Glucose 123 H 124 H 156 H Calcium Phosphorus Magnesium AST Alkaline Phosphatase C-Reactive Protein Total Protein Albumin Lipase Vitamin B12 TSH Urine WBC (Auto) Urine Chloride Urine Total Protein Vancomycin Trough Crossmatch 10/14/16 10/14/16 10/14/16 17:43 19:00 20:08 WBC RBC Hgb Hct MCV RDW Plt Count Lymph % (Auto) [place] % (Auto) [place] # Seg Neutrophils % Seg Neuts % (Manual) Lymphocytes % (Manual) Monocytes % (Manual) Basophils % (Manual) Nucleated RBC % Seg Neutrophils # Seg Neutrophils # Man Lymphocytes # (Manual) Monocytes # (Manual) Eosinophils # (Manual) Basophils # (Manual) PT INR APTT Heparin Anti-Xa Level POC ABG pH POC ABG pCO2 POC ABG pO2 Sodium Potassium Chloride Carbon Dioxide BUN Creatinine Glucose POC Glucose 154 H 123 H 138 H Calcium Phosphorus Magnesium AST Alkaline Phosphatase C-Reactive Protein Total Protein Albumin Lipase Vitamin B12 TSH Urine WBC (Auto) Urine Chloride Urine Total Protein Vancomycin Trough Crossmatch 10/14/16 10/14/16 10/14/16 21:17 22:25 23:37 WBC RBC Hgb Hct MCV RDW Plt Count Lymph % (Auto) [place] % (Auto) [place] # Seg Neutrophils % Seg Neuts % (Manual) Lymphocytes % (Manual) Monocytes % (Manual) Basophils % (Manual) Nucleated RBC % Seg Neutrophils # Seg Neutrophils # Man Lymphocytes # (Manual) Monocytes # (Manual) Eosinophils # (Manual) Basophils # (Manual) PT INR APTT Heparin Anti-Xa Level POC ABG pH POC ABG pCO2 POC ABG pO2 Sodium Potassium Chloride Carbon Dioxide BUN Creatinine Glucose POC Glucose 148 H 132 H 137 H Calcium Phosphorus Magnesium AST Alkaline Phosphatase C-Reactive Protein Total Protein Albumin Lipase Vitamin B12 TSH Urine WBC (Auto) Urine Chloride Urine Total Protein Vancomycin Trough Crossmatch 10/15/16 10/15/16 10/15/16 00:49 01:53 03:06 WBC RBC Hgb Hct MCV RDW Plt Count Lymph % (Auto) [place] % (Auto) [place] # Seg Neutrophils % Seg Neuts % (Manual) Lymphocytes % (Manual) Monocytes % (Manual) Basophils % (Manual) Nucleated RBC % Seg Neutrophils # Seg Neutrophils # Man Lymphocytes # (Manual) Monocytes # (Manual) Eosinophils # (Manual) Basophils # (Manual) PT INR APTT Heparin Anti-Xa Level POC ABG pH POC ABG pCO2 POC ABG pO2 Sodium Potassium Chloride Carbon Dioxide BUN Creatinine Glucose POC Glucose 132 H 134 H 134 H Calcium Phosphorus Magnesium AST Alkaline Phosphatase C-Reactive Protein Total Protein Albumin Lipase Vitamin B12 TSH Urine WBC (Auto) Urine Chloride Urine Total Protein Vancomycin Trough Crossmatch 10/15/16 10/15/16 10/15/16 04:40 04:46 06:21 WBC RBC Hgb Hct MCV RDW Plt Count Lymph % (Auto) [place] % (Auto) [place] # Seg Neutrophils % Seg Neuts % (Manual) Lymphocytes % (Manual) Monocytes % (Manual) Basophils % (Manual) Nucleated RBC % Seg Neutrophils # Seg Neutrophils # Man Lymphocytes # (Manual) Monocytes # (Manual) Eosinophils # (Manual) Basophils # (Manual) PT INR APTT Heparin Anti-Xa Level POC ABG pH POC ABG pCO2 30.7 L POC ABG pO2 108 H Sodium Potassium Chloride 109.0 H Carbon Dioxide 17 L BUN 27 H Creatinine Glucose 124 H POC Glucose 160 H Calcium 7.5 L Phosphorus Magnesium AST 79 H Alkaline Phosphatase C-Reactive Protein Total Protein 5.5 L Albumin 3.0 L Lipase Vitamin B12 TSH Urine WBC (Auto) Urine Chloride Urine Total Protein Vancomycin Trough Crossmatch 10/15/16 10/15/16 10/15/16 07:12 08:01 09:03 WBC RBC Hgb Hct MCV RDW Plt Count Lymph % (Auto) [place] % (Auto) [place] # Seg Neutrophils % Seg Neuts % (Manual) Lymphocytes % (Manual) Monocytes % (Manual) Basophils % (Manual) Nucleated RBC % Seg Neutrophils # Seg Neutrophils # Man Lymphocytes # (Manual) Monocytes # (Manual) Eosinophils # (Manual) Basophils # (Manual) PT INR APTT Heparin Anti-Xa Level POC ABG pH POC ABG pCO2 POC ABG pO2 Sodium Potassium Chloride Carbon Dioxide BUN Creatinine Glucose POC Glucose 179 H 187 H 165 H Calcium Phosphorus Magnesium AST Alkaline Phosphatase C-Reactive Protein Total Protein Albumin Lipase Vitamin B12 TSH Urine WBC (Auto) Urine Chloride Urine Total Protein Vancomycin Trough Crossmatch 10/15/16 10/15/16 10/15/16 10:06 10:06 10:07 WBC 12.1 H RBC 3.01 L Hgb 9.7 L Hct 29.6 L MCV 98 H RDW Plt Count 129 L Lymph % (Auto) [place] % (Auto) [place] # Seg Neutrophils % Seg Neuts % (Manual) Lymphocytes % (Manual) Monocytes % (Manual) Basophils % (Manual) Nucleated RBC % Seg Neutrophils # Seg Neutrophils # Man Lymphocytes # (Manual) Monocytes # (Manual) Eosinophils # (Manual) Basophils # (Manual) PT INR APTT Heparin Anti-Xa Level POC ABG pH POC ABG pCO2 POC ABG pO2 Sodium Potassium 3.2 L D Chloride 109.6 H Carbon Dioxide 18 L BUN 22 H Creatinine Glucose 127 H POC Glucose 147 H Calcium 7.0 L Phosphorus Magnesium AST Alkaline Phosphatase C-Reactive Protein Total Protein Albumin Lipase Vitamin B12 TSH Urine WBC (Auto) Urine Chloride Urine Total Protein Vancomycin Trough Crossmatch 10/15/16 10/15/16 10/15/16 11:05 11:06 11:57 WBC RBC Hgb Hct MCV RDW Plt Count Lymph % (Auto) [place] % (Auto) [place] # Seg Neutrophils % Seg Neuts % (Manual) Lymphocytes % (Manual) Monocytes % (Manual) Basophils % (Manual) Nucleated RBC % Seg Neutrophils # Seg Neutrophils # Man Lymphocytes # (Manual) Monocytes # (Manual) Eosinophils # (Manual) Basophils # (Manual) PT INR APTT Heparin Anti-Xa Level POC ABG pH 7.305 L POC ABG pCO2 POC ABG pO2 Sodium Potassium Chloride Carbon Dioxide BUN Creatinine Glucose POC Glucose 145 H Calcium Phosphorus Magnesium AST Alkaline Phosphatase C-Reactive Protein Total Protein Albumin Lipase Vitamin B12 TSH Urine WBC (Auto) 7.0 H Urine Chloride Urine Total Protein Vancomycin Trough Crossmatch 10/15/16 10/15/16 10/15/16 12:04 13:59 15:24 WBC RBC Hgb Hct MCV RDW Plt Count Lymph % (Auto) [place] % (Auto) [place] # Seg Neutrophils % Seg Neuts % (Manual) Lymphocytes % (Manual) Monocytes % (Manual) Basophils % (Manual) Nucleated RBC % Seg Neutrophils # Seg Neutrophils # Man Lymphocytes # (Manual) Monocytes # (Manual) Eosinophils # (Manual) Basophils # (Manual) PT INR APTT Heparin Anti-Xa Level POC ABG pH POC ABG pCO2 POC ABG pO2 Sodium Potassium Chloride Carbon Dioxide BUN Creatinine Glucose POC Glucose 123 H 147 H 153 H Calcium Phosphorus Magnesium AST Alkaline Phosphatase C-Reactive Protein Total Protein Albumin Lipase Vitamin B12 TSH Urine WBC (Auto) Urine Chloride Urine Total Protein Vancomycin Trough Crossmatch 10/15/16 10/15/16 10/15/16 16:30 17:34 18:30 WBC RBC Hgb Hct MCV RDW Plt Count Lymph % (Auto) [place] % (Auto) [place] # Seg Neutrophils % Seg Neuts % (Manual) Lymphocytes % (Manual) Monocytes % (Manual) Basophils % (Manual) Nucleated RBC % Seg Neutrophils # Seg Neutrophils # Man Lymphocytes # (Manual) Monocytes # (Manual) Eosinophils # (Manual) Basophils # (Manual) PT INR APTT Heparin Anti-Xa Level POC ABG pH POC ABG pCO2 POC ABG pO2 Sodium Potassium Chloride Carbon Dioxide BUN Creatinine Glucose POC Glucose 223 H 236 H 164 H Calcium Phosphorus Magnesium AST Alkaline Phosphatase C-Reactive Protein Total Protein Albumin Lipase Vitamin B12 TSH Urine WBC (Auto) Urine Chloride Urine Total Protein Vancomycin Trough Crossmatch 10/15/16 10/15/16 10/15/16 19:14 20:31 21:23 WBC RBC Hgb Hct MCV RDW Plt Count Lymph % (Auto) [place] % (Auto) [place] # Seg Neutrophils % Seg Neuts % (Manual) Lymphocytes % (Manual) Monocytes % (Manual) Basophils % (Manual) Nucleated RBC % Seg Neutrophils # Seg Neutrophils # Man Lymphocytes # (Manual) Monocytes # (Manual) Eosinophils # (Manual) Basophils # (Manual) PT INR APTT Heparin Anti-Xa Level POC ABG pH POC ABG pCO2 POC ABG pO2 Sodium Potassium Chloride Carbon Dioxide BUN Creatinine Glucose POC Glucose 138 H 158 H 158 H Calcium Phosphorus Magnesium AST Alkaline Phosphatase C-Reactive Protein Total Protein Albumin Lipase Vitamin B12 TSH Urine WBC (Auto) Urine Chloride Urine Total Protein Vancomycin Trough Crossmatch 10/15/16 10/15/1617 22:04 22:57 00:11 WBC RBC Hgb Hct MCV RDW Plt Count Lymph % (Auto) [place] % (Auto) [place] # Seg Neutrophils % Seg Neuts % (Manual) Lymphocytes % (Manual) Monocytes % (Manual) Basophils % (Manual) Nucleated RBC % Seg Neutrophils # Seg Neutrophils # Man Lymphocytes # (Manual) Monocytes # (Manual) Eosinophils # (Manual) Basophils # (Manual) PT INR APTT Heparin Anti-Xa Level POC ABG pH POC ABG pCO2 POC ABG pO2 Sodium Potassium Chloride Carbon Dioxide BUN Creatinine Glucose POC Glucose 168 H 213 H 166 H Calcium Phosphorus Magnesium AST Alkaline Phosphatase C-Reactive Protein Total Protein Albumin Lipase Vitamin B12 TSH Urine WBC (Auto) Urine Chloride Urine Total Protein Vancomycin Trough Crossmatch 10/16/16 10/16/16 10/16/16 01:16 02:32 03:38 WBC RBC Hgb Hct MCV RDW Plt Count Lymph % (Auto) [place] % (Auto) [place] # Seg Neutrophils % Seg Neuts % (Manual) Lymphocytes % (Manual) Monocytes % (Manual) Basophils % (Manual) Nucleated RBC % Seg Neutrophils # Seg Neutrophils # Man Lymphocytes # (Manual) Monocytes # (Manual) Eosinophils # (Manual) Basophils # (Manual) PT INR APTT Heparin Anti-Xa Level POC ABG pH POC ABG pCO2 POC ABG pO2 Sodium Potassium Chloride Carbon Dioxide BUN Creatinine Glucose POC Glucose 171 H 164 H 147 H Calcium Phosphorus Magnesium AST Alkaline Phosphatase C-Reactive Protein Total Protein Albumin Lipase Vitamin B12 TSH Urine WBC (Auto) Urine Chloride Urine Total Protein Vancomycin Trough Crossmatch 10/16/16 10/16/16 10/16/16 04:14 04:14 04:49 WBC RBC Hgb Hct MCV RDW Plt Count Lymph % (Auto) [place] % (Auto) [place] # Seg Neutrophils % Seg Neuts % (Manual) Lymphocytes % (Manual) Monocytes % (Manual) Basophils % (Manual) Nucleated RBC % Seg Neutrophils # Seg Neutrophils # Man Lymphocytes # (Manual) Monocytes # (Manual) Eosinophils # (Manual) Basophils # (Manual) PT INR APTT Heparin Anti-Xa Level POC ABG pH POC ABG pCO2 POC ABG pO2 Sodium 147 H Potassium Chloride 110.9 H Carbon Dioxide 19 L BUN Creatinine Glucose 139 H POC Glucose 144 H Calcium 7.3 L Phosphorus 2.3 L Magnesium AST Alkaline Phosphatase C-Reactive Protein Total Protein Albumin Lipase 143 H Vitamin B12 TSH Urine WBC (Auto) Urine Chloride Urine Total Protein Vancomycin Trough Crossmatch 10/16/16 10/16/16 10/16/16 05:03 05:41 05:58 WBC 16.5 H RBC 3.36 L Hgb Hct MCV 98 H RDW 13.1 L Plt Count Lymph % (Auto) 8.5 L [place] % (Auto) 7.6 H [place] # 1.3 H Seg Neutrophils % 83.3 H Seg Neuts % (Manual) Lymphocytes % (Manual) Monocytes % (Manual) Basophils % (Manual) Nucleated RBC % Seg Neutrophils # 13.8 H Seg Neutrophils # Man Lymphocytes # (Manual) Monocytes # (Manual) Eosinophils # (Manual) Basophils # (Manual) PT INR APTT Heparin Anti-Xa Level POC ABG pH POC ABG pCO2 30.7 L POC ABG pO2 128 H Sodium Potassium Chloride Carbon Dioxide BUN Creatinine Glucose POC Glucose 131 H Calcium Phosphorus Magnesium AST Alkaline Phosphatase C-Reactive Protein Total Protein Albumin Lipase Vitamin B12 TSH Urine WBC (Auto) Urine Chloride Urine Total Protein Vancomycin Trough Crossmatch 10/16/16 10/16/16 10/16/16 06:32 09:27 09:35 WBC RBC Hgb Hct MCV RDW Plt Count Lymph % (Auto) [place] % (Auto) [place] # Seg Neutrophils % Seg Neuts % (Manual) Lymphocytes % (Manual) Monocytes % (Manual) Basophils % (Manual) Nucleated RBC % Seg Neutrophils # Seg Neutrophils # Man Lymphocytes # (Manual) Monocytes # (Manual) Eosinophils # (Manual) Basophils # (Manual) PT INR APTT Heparin Anti-Xa Level POC ABG pH POC ABG pCO2 32.8 L POC ABG pO2 137 H Sodium Potassium Chloride Carbon Dioxide BUN Creatinine Glucose POC Glucose 121 H 150 H Calcium Phosphorus Magnesium AST Alkaline Phosphatase C-Reactive Protein Total Protein Albumin Lipase Vitamin B12 TSH Urine WBC (Auto) Urine Chloride Urine Total Protein Vancomycin Trough Crossmatch 10/16/16 10/16/16 10/16/16 10:47 13:27 14:24 WBC RBC Hgb Hct MCV RDW Plt Count Lymph % (Auto) [place] % (Auto) [place] # Seg Neutrophils % Seg Neuts % (Manual) Lymphocytes % (Manual) Monocytes % (Manual) Basophils % (Manual) Nucleated RBC % Seg Neutrophils # Seg Neutrophils # Man Lymphocytes # (Manual) Monocytes # (Manual) Eosinophils # (Manual) Basophils # (Manual) PT INR APTT Heparin Anti-Xa Level POC ABG pH POC ABG pCO2 POC ABG pO2 Sodium Potassium Chloride Carbon Dioxide BUN Creatinine Glucose POC Glucose 184 H 171 H 174 H Calcium Phosphorus Magnesium AST Alkaline Phosphatase C-Reactive Protein Total Protein Albumin Lipase Vitamin B12 TSH Urine WBC (Auto) Urine Chloride Urine Total Protein Vancomycin Trough Crossmatch 10/16/16 10/16/16 10/16/16 15:48 16:26 18:17 WBC RBC Hgb Hct MCV RDW Plt Count Lymph % (Auto) [place] % (Auto) [place] # Seg Neutrophils % Seg Neuts % (Manual) Lymphocytes % (Manual) Monocytes % (Manual) Basophils % (Manual) Nucleated RBC % Seg Neutrophils # Seg Neutrophils # Man Lymphocytes # (Manual) Monocytes # (Manual) Eosinophils # (Manual) Basophils # (Manual) PT INR APTT Heparin Anti-Xa Level POC ABG pH POC ABG pCO2 POC ABG pO2 Sodium Potassium Chloride Carbon Dioxide BUN Creatinine Glucose POC Glucose 205 H 204 H 234 H Calcium Phosphorus Magnesium AST Alkaline Phosphatase C-Reactive Protein Total Protein Albumin Lipase Vitamin B12 TSH Urine WBC (Auto) Urine Chloride Urine Total Protein Vancomycin Trough Crossmatch 10/16/16 10/16/16 10/16/16 19:40 20:33 21:36 WBC RBC Hgb Hct MCV RDW Plt Count Lymph % (Auto) [place] % (Auto) [place] # Seg Neutrophils % Seg Neuts % (Manual) Lymphocytes % (Manual) Monocytes % (Manual) Basophils % (Manual) Nucleated RBC % Seg Neutrophils # Seg Neutrophils # Man Lymphocytes # (Manual) Monocytes # (Manual) Eosinophils # (Manual) Basophils # (Manual) PT INR APTT Heparin Anti-Xa Level POC ABG pH POC ABG pCO2 POC ABG pO2 Sodium Potassium Chloride Carbon Dioxide BUN Creatinine Glucose POC Glucose 167 H 153 H 158 H Calcium Phosphorus Magnesium AST Alkaline Phosphatase C-Reactive Protein Total Protein Albumin Lipase Vitamin B12 TSH Urine WBC (Auto) Urine Chloride Urine Total Protein Vancomycin Trough Crossmatch 10/16/16 10/16/16 10/17/16 22:54 23:48 00:47 WBC RBC Hgb Hct MCV RDW Plt Count Lymph % (Auto) [place] % (Auto) [place] # Seg Neutrophils % Seg Neuts % (Manual) Lymphocytes % (Manual) Monocytes % (Manual) Basophils % (Manual) Nucleated RBC % Seg Neutrophils # Seg Neutrophils # Man Lymphocytes # (Manual) Monocytes # (Manual) Eosinophils # (Manual) Basophils # (Manual) PT INR APTT Heparin Anti-Xa Level POC ABG pH POC ABG pCO2 POC ABG pO2 Sodium Potassium Chloride Carbon Dioxide BUN Creatinine Glucose POC Glucose 180 H 207 H 196 H Calcium Phosphorus Magnesium AST Alkaline Phosphatase C-Reactive Protein Total Protein Albumin Lipase Vitamin B12 TSH Urine WBC (Auto) Urine Chloride Urine Total Protein Vancomycin Trough Crossmatch 10/17/16 10/17/16 10/17/16 01:57 02:49 03:50 WBC RBC Hgb Hct MCV RDW Plt Count Lymph % (Auto) [place] % (Auto) [place] # Seg Neutrophils % Seg Neuts % (Manual) Lymphocytes % (Manual) Monocytes % (Manual) Basophils % (Manual) Nucleated RBC % Seg Neutrophils # Seg Neutrophils # Man Lymphocytes # (Manual) Monocytes # (Manual) Eosinophils # (Manual) Basophils # (Manual) PT INR APTT Heparin Anti-Xa Level POC ABG pH POC ABG pCO2 POC ABG pO2 Sodium Potassium Chloride Carbon Dioxide BUN Creatinine Glucose POC Glucose 180 H 151 H 106 H Calcium Phosphorus Magnesium AST Alkaline Phosphatase C-Reactive Protein Total Protein Albumin Lipase Vitamin B12 TSH Urine WBC (Auto) Urine Chloride Urine Total Protein Vancomycin Trough Crossmatch 10/17/16 10/17/16 10/17/16 04:59 06:03 06:35 WBC RBC Hgb Hct MCV RDW Plt Count Lymph % (Auto) [place] % (Auto) [place] # Seg Neutrophils % Seg Neuts % (Manual) Lymphocytes % (Manual) Monocytes % (Manual) Basophils % (Manual) Nucleated RBC % Seg Neutrophils # Seg Neutrophils # Man Lymphocytes # (Manual) Monocytes # (Manual) Eosinophils # (Manual) Basophils # (Manual) PT INR APTT Heparin Anti-Xa Level POC ABG pH 7.453 H POC ABG pCO2 30.1 L POC ABG pO2 111 H Sodium Potassium Chloride Carbon Dioxide BUN Creatinine Glucose POC Glucose 145 H 157 H Calcium Phosphorus Magnesium AST Alkaline Phosphatase C-Reactive Protein Total Protein Albumin Lipase Vitamin B12 TSH Urine WBC (Auto) Urine Chloride Urine Total Protein Vancomycin Trough Crossmatch 10/17/16 10/17/16 10/17/16 07:08 07:11 08:01 WBC RBC Hgb Hct MCV RDW Plt Count Lymph % (Auto) [place] % (Auto) [place] # Seg Neutrophils % Seg Neuts % (Manual) Lymphocytes % (Manual) Monocytes % (Manual) Basophils % (Manual) Nucleated RBC % Seg Neutrophils # Seg Neutrophils # Man Lymphocytes # (Manual) Monocytes # (Manual) Eosinophils # (Manual) Basophils # (Manual) PT INR APTT Heparin Anti-Xa Level POC ABG pH POC ABG pCO2 POC ABG pO2 Sodium 147 H Potassium Chloride 113.8 H Carbon Dioxide 19 L BUN Creatinine Glucose 136 H POC Glucose 136 H 152 H Calcium 7.7 L Phosphorus Magnesium AST Alkaline Phosphatase C-Reactive Protein Total Protein Albumin Lipase Vitamin B12 TSH Urine WBC (Auto) Urine Chloride Urine Total Protein Vancomycin Trough Crossmatch 10/17/16 10/17/16 10/17/16 08:23 09:17 09:53 WBC 18.1 H RBC 3.01 L Hgb 9.7 L Hct 29.4 L MCV 98 H RDW Plt Count 116 L Lymph % (Auto) [place] % (Auto) [place] # Seg Neutrophils % Seg Neuts % (Manual) 77.0 H Lymphocytes % (Manual) 4.0 L Monocytes % (Manual) 12.0 H Basophils % (Manual) Nucleated RBC % Seg Neutrophils # Seg Neutrophils # Man 13.9 H Lymphocytes # (Manual) 0.7 L Monocytes # (Manual) 2.2 H Eosinophils # (Manual) Basophils # (Manual) PT INR APTT Heparin Anti-Xa Level POC ABG pH POC ABG pCO2 POC ABG pO2 Sodium Potassium Chloride Carbon Dioxide BUN Creatinine Glucose POC Glucose 148 H 137 H Calcium Phosphorus Magnesium AST Alkaline Phosphatase C-Reactive Protein Total Protein Albumin Lipase Vitamin B12 TSH Urine WBC (Auto) Urine Chloride Urine Total Protein Vancomycin Trough Crossmatch 10/17/16 10/17/16 10/17/16 11:43 16:07 17:42 WBC RBC Hgb Hct MCV RDW Plt Count Lymph % (Auto) [place] % (Auto) [place] # Seg Neutrophils % Seg Neuts % (Manual) Lymphocytes % (Manual) Monocytes % (Manual) Basophils % (Manual) Nucleated RBC % Seg Neutrophils # Seg Neutrophils # Man Lymphocytes # (Manual) Monocytes # (Manual) Eosinophils # (Manual) Basophils # (Manual) PT 16.4 H INR 1.33 H APTT 38.8 H Heparin Anti-Xa Level POC ABG pH POC ABG pCO2 POC ABG pO2 Sodium Potassium Chloride Carbon Dioxide BUN Creatinine Glucose POC Glucose 179 H 153 H Calcium Phosphorus Magnesium AST Alkaline Phosphatase C-Reactive Protein Total Protein Albumin Lipase Vitamin B12 TSH Urine WBC (Auto) Urine Chloride Urine Total Protein Vancomycin Trough Crossmatch 10/17/16 10/18/16 10/18/16 22:54 04:37 05:39 WBC RBC Hgb Hct MCV RDW Plt Count Lymph % (Auto) [place] % (Auto) [place] # Seg Neutrophils % Seg Neuts % (Manual) Lymphocytes % (Manual) Monocytes % (Manual) Basophils % (Manual) Nucleated RBC % Seg Neutrophils # Seg Neutrophils # Man Lymphocytes # (Manual) Monocytes # (Manual) Eosinophils # (Manual) Basophils # (Manual) PT INR APTT Heparin Anti-Xa Level 0.27 L POC ABG pH 7.454 H POC ABG pCO2 30.8 L POC ABG pO2 115 H Sodium Potassium Chloride Carbon Dioxide BUN Creatinine Glucose POC Glucose 69 L Calcium Phosphorus Magnesium AST Alkaline Phosphatase C-Reactive Protein Total Protein Albumin Lipase Vitamin B12 TSH Urine WBC (Auto) Urine Chloride Urine Total Protein Vancomycin Trough Crossmatch 10/18/16 10/18/16 10/18/16 06:46 06:46 06:46 WBC 20.5 H RBC 2.62 L Hgb 8.4 L Hct 26.0 L MCV 100 H RDW Plt Count Lymph % (Auto) [place] % (Auto) [place] # Seg Neutrophils % Seg Neuts % (Manual) 75.0 H Lymphocytes % (Manual) 9.0 L Monocytes % (Manual) 14.0 H Basophils % (Manual) Nucleated RBC % Seg Neutrophils # Seg Neutrophils # Man 15.4 H Lymphocytes # (Manual) Monocytes # (Manual) 2.9 H Eosinophils # (Manual) Basophils # (Manual) PT INR APTT Heparin Anti-Xa Level POC ABG pH POC ABG pCO2 POC ABG pO2 Sodium Potassium Chloride 110.6 H Carbon Dioxide BUN Creatinine 1.3 H Glucose 153 H POC Glucose Calcium 8.0 L Phosphorus Magnesium 1.6 L AST Alkaline Phosphatase C-Reactive Protein Total Protein Albumin Lipase Vitamin B12 TSH Urine WBC (Auto) Urine Chloride Urine Total Protein Vancomycin Trough Crossmatch 10/18/16 10/18/16 10/18/16 07:30 11:37 17:51 WBC RBC Hgb Hct MCV RDW Plt Count Lymph % (Auto) [place] % (Auto) [place] # Seg Neutrophils % Seg Neuts % (Manual) Lymphocytes % (Manual) Monocytes % (Manual) Basophils % (Manual) Nucleated RBC % Seg Neutrophils # Seg Neutrophils # Man Lymphocytes # (Manual) Monocytes # (Manual) Eosinophils # (Manual) Basophils # (Manual) PT INR APTT Heparin Anti-Xa Level POC ABG pH POC ABG pCO2 POC ABG pO2 Sodium Potassium Chloride Carbon Dioxide BUN Creatinine Glucose POC Glucose 162 H 156 H 164 H Calcium Phosphorus Magnesium AST Alkaline Phosphatase C-Reactive Protein Total Protein Albumin Lipase Vitamin B12 TSH Urine WBC (Auto) Urine Chloride Urine Total Protein Vancomycin Trough Crossmatch 10/18/16 10/19/16 10/19/16 23:44 03:59 05:13 WBC 18.2 H RBC 2.76 L Hgb 9.0 L Hct 27.7 L MCV 100 H RDW Plt Count Lymph % (Auto) [place] % (Auto) [place] # Seg Neutrophils % Seg Neuts % (Manual) 76.0 H Lymphocytes % (Manual) 10.0 L Monocytes % (Manual) Basophils % (Manual) Nucleated RBC % Seg Neutrophils # Seg Neutrophils # Man 13.8 H Lymphocytes # (Manual) Monocytes # (Manual) Eosinophils # (Manual) Basophils # (Manual) PT INR APTT Heparin Anti-Xa Level POC ABG pH POC ABG pCO2 32.2 L POC ABG pO2 128 H Sodium Potassium Chloride Carbon Dioxide BUN Creatinine Glucose POC Glucose 278 H Calcium Phosphorus Magnesium AST Alkaline Phosphatase C-Reactive Protein Total Protein Albumin Lipase Vitamin B12 TSH Urine WBC (Auto) Urine Chloride Urine Total Protein Vancomycin Trough Crossmatch 10/19/16 10/19/16 10/19/16 06:01 06:30 12:20 WBC RBC Hgb Hct MCV RDW Plt Count Lymph % (Auto) [place] % (Auto) [place] # Seg Neutrophils % Seg Neuts % (Manual) Lymphocytes % (Manual) Monocytes % (Manual) Basophils % (Manual) Nucleated RBC % Seg Neutrophils # Seg Neutrophils # Man Lymphocytes # (Manual) Monocytes # (Manual) Eosinophils # (Manual) Basophils # (Manual) PT INR APTT Heparin Anti-Xa Level POC ABG pH POC ABG pCO2 POC ABG pO2 Sodium Potassium Chloride Carbon Dioxide 18 L BUN Creatinine 1.3 H Glucose 262 H POC Glucose 261 H 349 H Calcium 7.7 L Phosphorus 4.8 H D Magnesium AST Alkaline Phosphatase C-Reactive Protein Total Protein Albumin Lipase Vitamin B12 TSH Urine WBC (Auto) Urine Chloride Urine Total Protein Vancomycin Trough Crossmatch 10/19/16 10/20/16 10/20/16 16:48 00:17 05:20 WBC 22.5 H RBC 2.80 L Hgb 8.9 L Hct 28.3 L MCV 101 H RDW Plt Count Lymph % (Auto) [place] % (Auto) [place] # Seg Neutrophils % Seg Neuts % (Manual) Lymphocytes % (Manual) 10.0 L Monocytes % (Manual) Basophils % (Manual) Nucleated RBC % Seg Neutrophils # Seg Neutrophils # Man 13.3 H Lymphocytes # (Manual) Monocytes # (Manual) 1.1 H Eosinophils # (Manual) 0.7 H Basophils # (Manual) PT INR APTT Heparin Anti-Xa Level POC ABG pH POC ABG pCO2 POC ABG pO2 Sodium Potassium Chloride Carbon Dioxide BUN Creatinine Glucose POC Glucose 248 H 346 H Calcium Phosphorus Magnesium AST Alkaline Phosphatase C-Reactive Protein Total Protein Albumin Lipase Vitamin B12 TSH Urine WBC (Auto) Urine Chloride Urine Total Protein Vancomycin Trough Crossmatch 10/20/16 10/20/16 10/20/16 05:20 05:20 06:05 WBC RBC Hgb Hct MCV RDW Plt Count Lymph % (Auto) [place] % (Auto) [place] # Seg Neutrophils % Seg Neuts % (Manual) Lymphocytes % (Manual) Monocytes % (Manual) Basophils % (Manual) Nucleated RBC % Seg Neutrophils # Seg Neutrophils # Man Lymphocytes # (Manual) Monocytes # (Manual) Eosinophils # (Manual) Basophils # (Manual) PT INR APTT Heparin Anti-Xa Level 0.20 L POC ABG pH POC ABG pCO2 POC ABG pO2 Sodium Potassium Chloride Carbon Dioxide BUN 20 H Creatinine Glucose 374 H POC Glucose 337 H Calcium 8.3 L Phosphorus Magnesium AST Alkaline Phosphatase C-Reactive Protein Total Protein Albumin Lipase Vitamin B12 TSH Urine WBC (Auto) Urine Chloride Urine Total Protein Vancomycin Trough Crossmatch 10/20/16 10/20/16 10/20/16 11:49 13:59 17:56 WBC RBC Hgb Hct MCV RDW Plt Count Lymph % (Auto) [place] % (Auto) [place] # Seg Neutrophils % Seg Neuts % (Manual) Lymphocytes % (Manual) Monocytes % (Manual) Basophils % (Manual) Nucleated RBC % Seg Neutrophils # Seg Neutrophils # Man Lymphocytes # (Manual) Monocytes # (Manual) Eosinophils # (Manual) Basophils # (Manual) PT INR APTT Heparin Anti-Xa Level 2.00 H POC ABG pH POC ABG pCO2 POC ABG pO2 Sodium Potassium Chloride Carbon Dioxide BUN Creatinine Glucose POC Glucose 305 H 362 H Calcium Phosphorus Magnesium AST Alkaline Phosphatase C-Reactive Protein Total Protein Albumin Lipase Vitamin B12 TSH Urine WBC (Auto) Urine Chloride Urine Total Protein Vancomycin Trough Crossmatch 10/20/16 10/21/16 10/21/16 23:52 05:00 05:49 WBC 22.9 H RBC 2.49 L Hgb 7.7 L Hct 25.6 L MCV 103 H RDW Plt Count Lymph % (Auto) [place] % (Auto) [place] # Seg Neutrophils % Seg Neuts % (Manual) 94.0 H Lymphocytes % (Manual) 1.0 L Monocytes % (Manual) Basophils % (Manual) Nucleated RBC % Seg Neutrophils # Seg Neutrophils # Man 21.5 H Lymphocytes # (Manual) 0.2 L Monocytes # (Manual) 1.1 H Eosinophils # (Manual) Basophils # (Manual) PT INR APTT Heparin Anti-Xa Level POC ABG pH POC ABG pCO2 POC ABG pO2 Sodium Potassium Chloride Carbon Dioxide BUN Creatinine Glucose POC Glucose 252 H 180 H Calcium Phosphorus Magnesium AST Alkaline Phosphatase C-Reactive Protein Total Protein Albumin Lipase Vitamin B12 TSH Urine WBC (Auto) Urine Chloride Urine Total Protein Vancomycin Trough Crossmatch 10/21/16 10/21/16 10/21/16 11:47 11:49 14:10 WBC RBC Hgb Hct MCV RDW Plt Count Lymph % (Auto) [place] % (Auto) [place] # Seg Neutrophils % Seg Neuts % (Manual) Lymphocytes % (Manual) Monocytes % (Manual) Basophils % (Manual) Nucleated RBC % Seg Neutrophils # Seg Neutrophils # Man Lymphocytes # (Manual) Monocytes # (Manual) Eosinophils # (Manual) Basophils # (Manual) PT INR APTT Heparin Anti-Xa Level POC ABG pH POC ABG pCO2 POC ABG pO2 Sodium Potassium Chloride Carbon Dioxide BUN Creatinine Glucose POC Glucose 50 L 56 L 140 H Calcium Phosphorus Magnesium AST Alkaline Phosphatase C-Reactive Protein Total Protein Albumin Lipase Vitamin B12 TSH Urine WBC (Auto) Urine Chloride Urine Total Protein Vancomycin Trough Crossmatch 10/21/16 10/21/16 10/22/16 18:24 Unknown 00:07 WBC RBC Hgb Hct MCV RDW Plt Count Lymph % (Auto) [place] % (Auto) [place] # Seg Neutrophils % Seg Neuts % (Manual) Lymphocytes % (Manual) Monocytes % (Manual) Basophils % (Manual) Nucleated RBC % Seg Neutrophils # Seg Neutrophils # Man Lymphocytes # (Manual) Monocytes # (Manual) Eosinophils # (Manual) Basophils # (Manual) PT INR APTT Heparin Anti-Xa Level POC ABG pH POC ABG pCO2 POC ABG pO2 Sodium 150 H Potassium 3.1 L Chloride 112.4 H Carbon Dioxide BUN 25 H Creatinine 1.4 H Glucose POC Glucose 175 H 218 H Calcium 8.0 L Phosphorus Magnesium AST Alkaline Phosphatase C-Reactive Protein Total Protein Albumin Lipase Vitamin B12 TSH Urine WBC (Auto) Urine Chloride Urine Total Protein Vancomycin Trough Crossmatch 10/22/16 10/22/16 10/22/16 04:20 04:20 10:25 WBC 20.8 H RBC 2.37 L Hgb 7.5 L Hct 23.9 L MCV 101 H RDW Plt Count Lymph % (Auto) [place] % (Auto) [place] # Seg Neutrophils % Seg Neuts % (Manual) 89.0 H Lymphocytes % (Manual) 7.0 L Monocytes % (Manual) Basophils % (Manual) Nucleated RBC % Seg Neutrophils # Seg Neutrophils # Man 18.5 H Lymphocytes # (Manual) Monocytes # (Manual) Eosinophils # (Manual) Basophils # (Manual) 0.2 H PT INR APTT Heparin Anti-Xa Level POC ABG pH POC ABG pCO2 POC ABG pO2 Sodium 148 H Potassium 2.9 L* Chloride 109.4 H Carbon Dioxide BUN 26 H Creatinine Glucose 140 H POC Glucose Calcium 7.5 L Phosphorus Magnesium AST Alkaline Phosphatase C-Reactive Protein Total Protein Albumin Lipase Vitamin B12 976.8 H TSH Urine WBC (Auto) Urine Chloride Urine Total Protein Vancomycin Trough Crossmatch 10/22/16 10/22/16 10/22/16 10:25 14:50 18:16 WBC RBC Hgb Hct MCV RDW Plt Count Lymph % (Auto) [place] % (Auto) [place] # Seg Neutrophils % Seg Neuts % (Manual) Lymphocytes % (Manual) Monocytes % (Manual) Basophils % (Manual) Nucleated RBC % Seg Neutrophils # Seg Neutrophils # Man Lymphocytes # (Manual) Monocytes # (Manual) Eosinophils # (Manual) Basophils # (Manual) PT INR APTT Heparin Anti-Xa Level POC ABG pH POC ABG pCO2 POC ABG pO2 Sodium Potassium Chloride Carbon Dioxide BUN Creatinine Glucose POC Glucose 193 H Calcium Phosphorus Magnesium AST Alkaline Phosphatase C-Reactive Protein Total Protein Albumin Lipase Vitamin B12 TSH 0.143 L 0.162 L Urine WBC (Auto) Urine Chloride Urine Total Protein Vancomycin Trough Crossmatch 10/22/16 10/22/16 10/22/16 20:00 20:00 20:00 WBC 24.1 H RBC 2.58 L Hgb 8.2 L Hct 26.4 L MCV 102 H RDW Plt Count Lymph % (Auto) [place] % (Auto) [place] # Seg Neutrophils % Seg Neuts % (Manual) 74.0 H Lymphocytes % (Manual) 7.0 L Monocytes % (Manual) Basophils % (Manual) Nucleated RBC % Seg Neutrophils # Seg Neutrophils # Man 17.8 H Lymphocytes # (Manual) Monocytes # (Manual) Eosinophils # (Manual) Basophils # (Manual) PT INR APTT Heparin Anti-Xa Level 1.92 H POC ABG pH POC ABG pCO2 POC ABG pO2 Sodium Potassium Chloride Carbon Dioxide BUN Creatinine Glucose POC Glucose Calcium Phosphorus Magnesium AST Alkaline Phosphatase C-Reactive Protein Total Protein Albumin Lipase Vitamin B12 TSH Urine WBC (Auto) Urine Chloride Urine Total Protein Vancomycin Trough Crossmatch See Detail 10/23/16 10/23/16 10/23/16 00:21 06:09 12:07 WBC RBC Hgb Hct MCV RDW Plt Count Lymph % (Auto) [place] % (Auto) [place] # Seg Neutrophils % Seg Neuts % (Manual) Lymphocytes % (Manual) Monocytes % (Manual) Basophils % (Manual) Nucleated RBC % Seg Neutrophils # Seg Neutrophils # Man Lymphocytes # (Manual) Monocytes # (Manual) Eosinophils # (Manual) Basophils # (Manual) PT INR APTT Heparin Anti-Xa Level POC ABG pH POC ABG pCO2 POC ABG pO2 Sodium Potassium Chloride Carbon Dioxide BUN Creatinine Glucose POC Glucose 283 H 241 H 340 H Calcium Phosphorus Magnesium AST Alkaline Phosphatase C-Reactive Protein Total Protein Albumin Lipase Vitamin B12 TSH Urine WBC (Auto) Urine Chloride Urine Total Protein Vancomycin Trough Crossmatch 10/23/16 10/23/16 10/23/16 14:01 16:00 17:59 WBC RBC Hgb Hct MCV RDW Plt Count Lymph % (Auto) [place] % (Auto) [place] # Seg Neutrophils % Seg Neuts % (Manual) Lymphocytes % (Manual) Monocytes % (Manual) Basophils % (Manual) Nucleated RBC % Seg Neutrophils # Seg Neutrophils # Man Lymphocytes # (Manual) Monocytes # (Manual) Eosinophils # (Manual) Basophils # (Manual) PT INR APTT Heparin Anti-Xa Level 0.19 L POC ABG pH POC ABG pCO2 32.4 L POC ABG pO2 Sodium Potassium Chloride Carbon Dioxide BUN Creatinine Glucose POC Glucose 245 H Calcium Phosphorus Magnesium AST Alkaline Phosphatase C-Reactive Protein Total Protein Albumin Lipase Vitamin B12 TSH Urine WBC (Auto) Urine Chloride Urine Total Protein Vancomycin Trough Crossmatch 10/23/16 10/23/16 10/23/16 22:55 Unknown Unknown WBC 22.6 H RBC 3.26 L Hgb Hct MCV RDW 17.1 H Plt Count Lymph % (Auto) [place] % (Auto) [place] # Seg Neutrophils % Seg Neuts % (Manual) Lymphocytes % (Manual) 11.0 L Monocytes % (Manual) Basophils % (Manual) Nucleated RBC % Seg Neutrophils # Seg Neutrophils # Man 14.0 H Lymphocytes # (Manual) Monocytes # (Manual) Eosinophils # (Manual) Basophils # (Manual) PT INR APTT Heparin Anti-Xa Level 0.17 L 0.15 L POC ABG pH POC ABG pCO2 POC ABG pO2 Sodium Potassium Chloride Carbon Dioxide BUN Creatinine Glucose POC Glucose Calcium Phosphorus Magnesium AST Alkaline Phosphatase C-Reactive Protein Total Protein Albumin Lipase Vitamin B12 TSH Urine WBC (Auto) Urine Chloride Urine Total Protein Vancomycin Trough Crossmatch 10/23/16 10/24/16 10/24/16 Unknown 00:05 05:30 WBC RBC Hgb Hct MCV RDW Plt Count Lymph % (Auto) [place] % (Auto) [place] # Seg Neutrophils % Seg Neuts % (Manual) Lymphocytes % (Manual) Monocytes % (Manual) Basophils % (Manual) Nucleated RBC % Seg Neutrophils # Seg Neutrophils # Man Lymphocytes # (Manual) Monocytes # (Manual) Eosinophils # (Manual) Basophils # (Manual) PT INR APTT Heparin Anti-Xa Level 0.13 L POC ABG pH POC ABG pCO2 POC ABG pO2 Sodium Potassium Chloride 111.2 H Carbon Dioxide 20 L BUN 25 H Creatinine Glucose 227 H POC Glucose 118 H Calcium 7.1 L Phosphorus Magnesium AST Alkaline Phosphatase C-Reactive Protein Total Protein Albumin Lipase Vitamin B12 TSH Urine WBC (Auto) Urine Chloride Urine Total Protein Vancomycin Trough Crossmatch 10/24/16 10/24/16 10/24/16 11:00 11:00 12:06 WBC 17.6 H RBC 2.92 L Hgb 9.2 L Hct 28.3 L MCV RDW 16.9 H Plt Count Lymph % (Auto) [place] % (Auto) [place] # Seg Neutrophils % Seg Neuts % (Manual) Lymphocytes % (Manual) Monocytes % (Manual) Basophils % (Manual) Nucleated RBC % Seg Neutrophils # Seg Neutrophils # Man Lymphocytes # (Manual) Monocytes # (Manual) Eosinophils # (Manual) Basophils # (Manual) PT INR APTT Heparin Anti-Xa Level 0.27 L POC ABG pH POC ABG pCO2 POC ABG pO2 Sodium Potassium Chloride Carbon Dioxide BUN Creatinine Glucose POC Glucose 166 H Calcium Phosphorus Magnesium AST Alkaline Phosphatase C-Reactive Protein Total Protein Albumin Lipase Vitamin B12 TSH Urine WBC (Auto) Urine Chloride Urine Total Protein Vancomycin Trough Crossmatch 10/24/16 10/25/16 10/25/16 12:27 00:49 03:30 WBC RBC Hgb 8.8 L Hct 28.1 L MCV RDW Plt Count Lymph % (Auto) [place] % (Auto) [place] # Seg Neutrophils % Seg Neuts % (Manual) Lymphocytes % (Manual) Monocytes % (Manual) Basophils % (Manual) Nucleated RBC % Seg Neutrophils # Seg Neutrophils # Man Lymphocytes # (Manual) Monocytes # (Manual) Eosinophils # (Manual) Basophils # (Manual) PT INR APTT Heparin Anti-Xa Level POC ABG pH POC ABG pCO2 33.9 L POC ABG pO2 Sodium Potassium Chloride Carbon Dioxide BUN Creatinine Glucose POC Glucose 121 H Calcium Phosphorus Magnesium AST Alkaline Phosphatase C-Reactive Protein Total Protein Albumin Lipase Vitamin B12 TSH Urine WBC (Auto) Urine Chloride Urine Total Protein Vancomycin Trough Crossmatch 10/25/16 10/25/16 10/25/16 09:49 12:10 19:25 WBC 21.1 H RBC 3.02 L Hgb 9.3 L Hct 28.9 L MCV RDW 16.3 H Plt Count Lymph % (Auto) [place] % (Auto) [place] # Seg Neutrophils % Seg Neuts % (Manual) 81.0 H Lymphocytes % (Manual) 9.0 L Monocytes % (Manual) Basophils % (Manual) Nucleated RBC % Seg Neutrophils # Seg Neutrophils # Man 17.1 H Lymphocytes # (Manual) Monocytes # (Manual) Eosinophils # (Manual) Basophils # (Manual) PT INR APTT Heparin Anti-Xa Level POC ABG pH POC ABG pCO2 POC ABG pO2 Sodium Potassium Chloride Carbon Dioxide BUN Creatinine Glucose POC Glucose 158 H 151 H Calcium Phosphorus Magnesium AST Alkaline Phosphatase C-Reactive Protein Total Protein Albumin Lipase Vitamin B12 TSH Urine WBC (Auto) Urine Chloride Urine Total Protein Vancomycin Trough Crossmatch 10/26/16 10/26/16 10/26/16 00:20 01:09 05:02 WBC 22.2 H RBC 2.89 L Hgb 8.7 L Hct 27.8 L MCV RDW 16.4 H Plt Count Lymph % (Auto) [place] % (Auto) [place] # Seg Neutrophils % Seg Neuts % (Manual) Lymphocytes % (Manual) Monocytes % (Manual) Basophils % (Manual) Nucleated RBC % Seg Neutrophils # Seg Neutrophils # Man Lymphocytes # (Manual) Monocytes # (Manual) Eosinophils # (Manual) Basophils # (Manual) PT INR APTT Heparin Anti-Xa Level POC ABG pH POC ABG pCO2 POC ABG pO2 Sodium Potassium Chloride Carbon Dioxide BUN Creatinine Glucose POC Glucose 44 L 112 H Calcium Phosphorus Magnesium AST Alkaline Phosphatase C-Reactive Protein Total Protein Albumin Lipase Vitamin B12 TSH Urine WBC (Auto) Urine Chloride Urine Total Protein Vancomycin Trough Crossmatch 10/26/16 10/26/16 10/26/16 05:02 12:11 12:14 WBC RBC Hgb Hct MCV RDW Plt Count Lymph % (Auto) [place] % (Auto) [place] # Seg Neutrophils % Seg Neuts % (Manual) Lymphocytes % (Manual) Monocytes % (Manual) Basophils % (Manual) Nucleated RBC % Seg Neutrophils # Seg Neutrophils # Man Lymphocytes # (Manual) Monocytes # (Manual) Eosinophils # (Manual) Basophils # (Manual) PT INR APTT Heparin Anti-Xa Level POC ABG pH POC ABG pCO2 32.0 L POC ABG pO2 33 L Sodium Potassium 3.2 L D Chloride Carbon Dioxide 20 L BUN 24 H Creatinine Glucose 104 H POC Glucose 194 H Calcium 7.7 L Phosphorus Magnesium AST Alkaline Phosphatase C-Reactive Protein Total Protein Albumin Lipase Vitamin B12 TSH Urine WBC (Auto) Urine Chloride Urine Total Protein Vancomycin Trough Crossmatch 10/26/16 10/26/16 10/27/16 15:28 17:23 00:04 WBC RBC Hgb Hct MCV RDW Plt Count Lymph % (Auto) [place] % (Auto) [place] # Seg Neutrophils % Seg Neuts % (Manual) Lymphocytes % (Manual) Monocytes % (Manual) Basophils % (Manual) Nucleated RBC % Seg Neutrophils # Seg Neutrophils # Man Lymphocytes # (Manual) Monocytes # (Manual) Eosinophils # (Manual) Basophils # (Manual) PT INR APTT Heparin Anti-Xa Level POC ABG pH POC ABG pCO2 33.7 L POC ABG pO2 Sodium Potassium Chloride Carbon Dioxide BUN Creatinine Glucose POC Glucose 181 H 230 H Calcium Phosphorus Magnesium AST Alkaline Phosphatase C-Reactive Protein Total Protein Albumin Lipase Vitamin B12 TSH Urine WBC (Auto) Urine Chloride Urine Total Protein Vancomycin Trough Crossmatch 10/27/16 10/27/16 10/27/16 05:15 05:15 05:38 WBC 25.5 H RBC 3.07 L Hgb 9.4 L Hct 30.1 L MCV 98 H RDW 16.4 H Plt Count 527 H Lymph % (Auto) [place] % (Auto) [place] # Seg Neutrophils % Seg Neuts % (Manual) Lymphocytes % (Manual) Monocytes % (Manual) Basophils % (Manual) Nucleated RBC % Seg Neutrophils # Seg Neutrophils # Man Lymphocytes # (Manual) Monocytes # (Manual) Eosinophils # (Manual) Basophils # (Manual) PT INR APTT Heparin Anti-Xa Level POC ABG pH POC ABG pCO2 POC ABG pO2 Sodium Potassium Chloride Carbon Dioxide 19 L BUN 23 H Creatinine Glucose 160 H POC Glucose 168 H Calcium 8.0 L Phosphorus Magnesium AST Alkaline Phosphatase C-Reactive Protein Total Protein Albumin Lipase Vitamin B12 TSH Urine WBC (Auto) Urine Chloride Urine Total Protein Vancomycin Trough Crossmatch 10/27/16 10/27/16 10/27/16 11:59 18:35 23:48 WBC RBC Hgb Hct MCV RDW Plt Count Lymph % (Auto) [place] % (Auto) [place] # Seg Neutrophils % Seg Neuts % (Manual) Lymphocytes % (Manual) Monocytes % (Manual) Basophils % (Manual) Nucleated RBC % Seg Neutrophils # Seg Neutrophils # Man Lymphocytes # (Manual) Monocytes # (Manual) Eosinophils # (Manual) Basophils # (Manual) PT INR APTT Heparin Anti-Xa Level POC ABG pH POC ABG pCO2 POC ABG pO2 Sodium Potassium Chloride Carbon Dioxide BUN Creatinine Glucose POC Glucose 197 H 318 H 316 H Calcium Phosphorus Magnesium AST Alkaline Phosphatase C-Reactive Protein Total Protein Albumin Lipase Vitamin B12 TSH Urine WBC (Auto) Urine Chloride Urine Total Protein Vancomycin Trough Crossmatch 10/28/16 10/28/16 10/28/16 03:13 04:10 04:10 WBC 18.8 H RBC 2.64 L Hgb 8.1 L Hct 26.1 L MCV 99 H RDW 16.2 H Plt Count 544 H Lymph % (Auto) [place] % (Auto) [place] # Seg Neutrophils % Seg Neuts % (Manual) Lymphocytes % (Manual) Monocytes % (Manual) Basophils % (Manual) Nucleated RBC % Seg Neutrophils # Seg Neutrophils # Man Lymphocytes # (Manual) Monocytes # (Manual) Eosinophils # (Manual) Basophils # (Manual) PT INR APTT Heparin Anti-Xa Level POC ABG pH POC ABG pCO2 POC ABG pO2 Sodium Potassium Chloride Carbon Dioxide 21 L BUN 24 H Creatinine Glucose 302 H POC Glucose 304 H Calcium 7.7 L Phosphorus Magnesium AST Alkaline Phosphatase C-Reactive Protein Total Protein Albumin Lipase Vitamin B12 TSH Urine WBC (Auto) Urine Chloride Urine Total Protein Vancomycin Trough Crossmatch 10/28/16 10/28/16 10/28/16 04:10 12:36 18:27 WBC RBC Hgb Hct MCV RDW Plt Count Lymph % (Auto) [place] % (Auto) [place] # Seg Neutrophils % Seg Neuts % (Manual) Lymphocytes % (Manual) Monocytes % (Manual) Basophils % (Manual) Nucleated RBC % Seg Neutrophils # Seg Neutrophils # Man Lymphocytes # (Manual) Monocytes # (Manual) Eosinophils # (Manual) Basophils # (Manual) PT INR APTT Heparin Anti-Xa Level 0.20 L POC ABG pH POC ABG pCO2 POC ABG pO2 Sodium Potassium Chloride Carbon Dioxide BUN Creatinine Glucose POC Glucose 205 H 339 H Calcium Phosphorus Magnesium AST Alkaline Phosphatase C-Reactive Protein Total Protein Albumin Lipase Vitamin B12 TSH Urine WBC (Auto) Urine Chloride Urine Total Protein Vancomycin Trough Crossmatch 10/29/16 10/29/16 10/29/16 01:05 06:19 09:30 WBC 20.3 H RBC 2.80 L Hgb 8.5 L Hct 26.7 L MCV RDW 15.4 H Plt Count 571 H Lymph % (Auto) [place] % (Auto) [place] # Seg Neutrophils % Seg Neuts % (Manual) 75.0 H Lymphocytes % (Manual) 4.0 L Monocytes % (Manual) Basophils % (Manual) Nucleated RBC % Seg Neutrophils # Seg Neutrophils # Man 15.2 H Lymphocytes # (Manual) 0.8 L Monocytes # (Manual) Eosinophils # (Manual) Basophils # (Manual) PT INR APTT Heparin Anti-Xa Level POC ABG pH POC ABG pCO2 POC ABG pO2 Sodium Potassium Chloride Carbon Dioxide BUN Creatinine Glucose POC Glucose 275 H 179 H Calcium Phosphorus Magnesium AST Alkaline Phosphatase C-Reactive Protein Total Protein Albumin Lipase Vitamin B12 TSH Urine WBC (Auto) Urine Chloride Urine Total Protein Vancomycin Trough Crossmatch 10/29/16 10/29/16 10/29/16 11:46 15:18 17:55 WBC RBC Hgb Hct MCV RDW Plt Count Lymph % (Auto) [place] % (Auto) [place] # Seg Neutrophils % Seg Neuts % (Manual) Lymphocytes % (Manual) Monocytes % (Manual) Basophils % (Manual) Nucleated RBC % Seg Neutrophils # Seg Neutrophils # Man Lymphocytes # (Manual) Monocytes # (Manual) Eosinophils # (Manual) Basophils # (Manual) PT INR APTT Heparin Anti-Xa Level 1.15 H POC ABG pH POC ABG pCO2 POC ABG pO2 Sodium Potassium Chloride Carbon Dioxide BUN Creatinine Glucose POC Glucose 122 H 255 H Calcium Phosphorus Magnesium AST Alkaline Phosphatase C-Reactive Protein Total Protein Albumin Lipase Vitamin B12 TSH Urine WBC (Auto) Urine Chloride Urine Total Protein Vancomycin Trough Crossmatch 10/30/16 10/30/16 10/30/16 00:10 05:30 05:30 WBC 19.8 H RBC 2.51 L Hgb 7.7 L Hct 24.1 L MCV RDW 15.5 H Plt Count 534 H Lymph % (Auto) [place] % (Auto) [place] # Seg Neutrophils % Seg Neuts % (Manual) Lymphocytes % (Manual) Monocytes % (Manual) Basophils % (Manual) Nucleated RBC % Seg Neutrophils # Seg Neutrophils # Man Lymphocytes # (Manual) Monocytes # (Manual) Eosinophils # (Manual) Basophils # (Manual) PT INR APTT Heparin Anti-Xa Level POC ABG pH POC ABG pCO2 POC ABG pO2 Sodium Potassium Chloride Carbon Dioxide BUN Creatinine Glucose 211 H POC Glucose 202 H Calcium 7.4 L Phosphorus Magnesium AST Alkaline Phosphatase C-Reactive Protein Total Protein Albumin Lipase Vitamin B12 TSH Urine WBC (Auto) Urine Chloride Urine Total Protein Vancomycin Trough Crossmatch 10/30/16 10/30/16 10/30/16 06:32 12:51 17:47 WBC RBC Hgb Hct MCV RDW Plt Count Lymph % (Auto) [place] % (Auto) [place] # Seg Neutrophils % Seg Neuts % (Manual) Lymphocytes % (Manual) Monocytes % (Manual) Basophils % (Manual) Nucleated RBC % Seg Neutrophils # Seg Neutrophils # Man Lymphocytes # (Manual) Monocytes # (Manual) Eosinophils # (Manual) Basophils # (Manual) PT INR APTT Heparin Anti-Xa Level POC ABG pH POC ABG pCO2 POC ABG pO2 Sodium Potassium Chloride Carbon Dioxide BUN Creatinine Glucose POC Glucose 207 H 218 H 169 H Calcium Phosphorus Magnesium AST Alkaline Phosphatase C-Reactive Protein Total Protein Albumin Lipase Vitamin B12 TSH Urine WBC (Auto) Urine Chloride Urine Total Protein Vancomycin Trough Crossmatch 10/30/16 10/31/16 10/31/16 23:59 05:25 11:21 WBC RBC Hgb Hct MCV RDW Plt Count Lymph % (Auto) [place] % (Auto) [place] # Seg Neutrophils % Seg Neuts % (Manual) Lymphocytes % (Manual) Monocytes % (Manual) Basophils % (Manual) Nucleated RBC % Seg Neutrophils # Seg Neutrophils # Man Lymphocytes # (Manual) Monocytes # (Manual) Eosinophils # (Manual) Basophils # (Manual) PT INR APTT Heparin Anti-Xa Level POC ABG pH POC ABG pCO2 POC ABG pO2 Sodium Potassium Chloride Carbon Dioxide BUN Creatinine Glucose POC Glucose 138 H 127 H 132 H Calcium Phosphorus Magnesium AST Alkaline Phosphatase C-Reactive Protein Total Protein Albumin Lipase Vitamin B12 TSH Urine WBC (Auto) Urine Chloride Urine Total Protein Vancomycin Trough Crossmatch 10/31/16 10/31/16 11/01/16 17:07 23:54 05:47 WBC RBC Hgb Hct MCV RDW Plt Count Lymph % (Auto) [place] % (Auto) [place] # Seg Neutrophils % Seg Neuts % (Manual) Lymphocytes % (Manual) Monocytes % (Manual) Basophils % (Manual) Nucleated RBC % Seg Neutrophils # Seg Neutrophils # Man Lymphocytes # (Manual) Monocytes # (Manual) Eosinophils # (Manual) Basophils # (Manual) PT INR APTT Heparin Anti-Xa Level POC ABG pH POC ABG pCO2 POC ABG pO2 Sodium Potassium Chloride Carbon Dioxide BUN Creatinine Glucose POC Glucose 138 H 153 H 150 H Calcium Phosphorus Magnesium AST Alkaline Phosphatase C-Reactive Protein Total Protein Albumin Lipase Vitamin B12 TSH Urine WBC (Auto) Urine Chloride Urine Total Protein Vancomycin Trough Crossmatch 11/01/16 11/01/16 11/01/16 06:33 06:33 12:16 WBC 19.2 H RBC 2.51 L Hgb 7.9 L Hct 24.8 L MCV 99 H D RDW 16.1 H Plt Count 569 H Lymph % (Auto) [place] % (Auto) [place] # Seg Neutrophils % Seg Neuts % (Manual) Lymphocytes % (Manual) Monocytes % (Manual) Basophils % (Manual) Nucleated RBC % Seg Neutrophils # Seg Neutrophils # Man Lymphocytes # (Manual) Monocytes # (Manual) Eosinophils # (Manual) Basophils # (Manual) PT INR APTT Heparin Anti-Xa Level POC ABG pH POC ABG pCO2 POC ABG pO2 Sodium Potassium 3.5 L Chloride Carbon Dioxide 21 L BUN Creatinine Glucose 137 H POC Glucose 125 H Calcium 7.7 L Phosphorus Magnesium AST Alkaline Phosphatase 148 H C-Reactive Protein Total Protein 6.2 L Albumin 2.0 L Lipase Vitamin B12 TSH Urine WBC (Auto) Urine Chloride Urine Total Protein Vancomycin Trough Crossmatch 11/01/16 11/02/16 11/02/16 17:37 00:05 04:15 WBC RBC Hgb Hct MCV RDW Plt Count Lymph % (Auto) [place] % (Auto) [place] # Seg Neutrophils % Seg Neuts % (Manual) Lymphocytes % (Manual) Monocytes % (Manual) Basophils % (Manual) Nucleated RBC % Seg Neutrophils # Seg Neutrophils # Man Lymphocytes # (Manual) Monocytes # (Manual) Eosinophils # (Manual) Basophils # (Manual) PT INR APTT Heparin Anti-Xa Level < 0.10 L POC ABG pH POC ABG pCO2 POC ABG pO2 Sodium Potassium 3.2 L Chloride Carbon Dioxide BUN 6 L Creatinine Glucose 135 H POC Glucose 164 H Calcium 7.5 L Phosphorus Magnesium AST Alkaline Phosphatase 132 H C-Reactive Protein Total Protein 6.2 L Albumin 1.8 L Lipase Vitamin B12 TSH Urine WBC (Auto) Urine Chloride Urine Total Protein Vancomycin Trough Crossmatch 11/02/16 11/02/16 11/02/16 04:15 05:54 12:15 WBC 17.7 H RBC 2.43 L Hgb 7.6 L Hct 23.5 L MCV RDW 15.9 H Plt Count 502 H Lymph % (Auto) [place] % (Auto) [place] # Seg Neutrophils % Seg Neuts % (Manual) 84.0 H Lymphocytes % (Manual) 11.0 L Monocytes % (Manual) Basophils % (Manual) Nucleated RBC % 1.0 H Seg Neutrophils # Seg Neutrophils # Man 14.9 H Lymphocytes # (Manual) Monocytes # (Manual) Eosinophils # (Manual) Basophils # (Manual) PT INR APTT Heparin Anti-Xa Level POC ABG pH POC ABG pCO2 POC ABG pO2 Sodium Potassium Chloride Carbon Dioxide BUN Creatinine Glucose POC Glucose 152 H 137 H Calcium Phosphorus Magnesium AST Alkaline Phosphatase C-Reactive Protein Total Protein Albumin Lipase Vitamin B12 TSH Urine WBC (Auto) Urine Chloride Urine Total Protein Vancomycin Trough Crossmatch 11/02/16 11/03/16 11/03/16 17:00 00:05 00:05 WBC RBC Hgb Hct MCV RDW Plt Count Lymph % (Auto) [place] % (Auto) [place] # Seg Neutrophils % Seg Neuts % (Manual) Lymphocytes % (Manual) Monocytes % (Manual) Basophils % (Manual) Nucleated RBC % Seg Neutrophils # Seg Neutrophils # Man Lymphocytes # (Manual) Monocytes # (Manual) Eosinophils # (Manual) Basophils # (Manual) PT INR APTT Heparin Anti-Xa Level POC ABG pH POC ABG pCO2 POC ABG pO2 Sodium Potassium Chloride Carbon Dioxide 20 L BUN 5 L Creatinine Glucose 139 H POC Glucose 161 H Calcium 6.7 L Phosphorus Magnesium 1.2 L AST Alkaline Phosphatase C-Reactive Protein Total Protein Albumin Lipase Vitamin B12 TSH Urine WBC (Auto) Urine Chloride Urine Total Protein Vancomycin Trough Crossmatch 11/03/16 11/03/16 11/03/16 00:05 02:05 04:23 WBC 15.9 H 14.0 H RBC 1.93 L 2.38 L Hgb 5.9 L* 7.3 L Hct 18.9 L* 23.1 L MCV 98 H RDW 15.9 H 15.9 H Plt Count Lymph % (Auto) [place] % (Auto) [place] # Seg Neutrophils % Seg Neuts % (Manual) 85.0 H Lymphocytes % (Manual) 4.0 L Monocytes % (Manual) Basophils % (Manual) Nucleated RBC % Seg Neutrophils # Seg Neutrophils # Man 13.5 H Lymphocytes # (Manual) 0.6 L Monocytes # (Manual) Eosinophils # (Manual) Basophils # (Manual) PT INR APTT Heparin Anti-Xa Level POC ABG pH POC ABG pCO2 POC ABG pO2 Sodium Potassium Chloride Carbon Dioxide BUN 5 L Creatinine Glucose 127 H POC Glucose Calcium 7.2 L Phosphorus Magnesium AST Alkaline Phosphatase C-Reactive Protein Total Protein 5.8 L Albumin 1.5 L Lipase Vitamin B12 TSH Urine WBC (Auto) Urine Chloride Urine Total Protein Vancomycin Trough Crossmatch 11/03/16 11/03/16 11/03/16 09:14 09:27 11:54 WBC RBC Hgb Hct MCV RDW Plt Count Lymph % (Auto) [place] % (Auto) [place] # Seg Neutrophils % Seg Neuts % (Manual) Lymphocytes % (Manual) Monocytes % (Manual) Basophils % (Manual) Nucleated RBC % Seg Neutrophils # Seg Neutrophils # Man Lymphocytes # (Manual) Monocytes # (Manual) Eosinophils # (Manual) Basophils # (Manual) PT INR APTT Heparin Anti-Xa Level 0.11 L POC ABG pH POC ABG pCO2 POC ABG pO2 Sodium Potassium Chloride Carbon Dioxide BUN 5 L Creatinine Glucose 111 H POC Glucose 139 H Calcium 6.7 L Phosphorus Magnesium AST Alkaline Phosphatase C-Reactive Protein Total Protein Albumin Lipase Vitamin B12 TSH Urine WBC (Auto) Urine Chloride Urine Total Protein Vancomycin Trough Crossmatch 11/03/16 11/03/16 11/03/16 16:26 18:01 18:01 WBC RBC Hgb Hct MCV RDW Plt Count Lymph % (Auto) [place] % (Auto) [place] # Seg Neutrophils % Seg Neuts % (Manual) Lymphocytes % (Manual) Monocytes % (Manual) Basophils % (Manual) Nucleated RBC % Seg Neutrophils # Seg Neutrophils # Man Lymphocytes # (Manual) Monocytes # (Manual) Eosinophils # (Manual) Basophils # (Manual) PT INR APTT Heparin Anti-Xa Level 2.00 H POC ABG pH POC ABG pCO2 POC ABG pO2 Sodium Potassium Chloride Carbon Dioxide BUN Creatinine Glucose POC Glucose 142 H Calcium Phosphorus Magnesium AST Alkaline Phosphatase C-Reactive Protein Total Protein Albumin Lipase Vitamin B12 TSH Urine WBC (Auto) Urine Chloride Urine Total Protein Vancomycin Trough Crossmatch See Detail 11/04/16 11/04/16 11/04/16 02:15 02:15 06:35 WBC 11.8 H RBC 2.39 L Hgb 7.4 L Hct 23.1 L MCV RDW 15.9 H Plt Count Lymph % (Auto) [place] % (Auto) [place] # Seg Neutrophils % Seg Neuts % (Manual) 76.0 H Lymphocytes % (Manual) 12.0 L Monocytes % (Manual) 9.0 H Basophils % (Manual) Nucleated RBC % Seg Neutrophils # Seg Neutrophils # Man 9.0 H Lymphocytes # (Manual) Monocytes # (Manual) 1.1 H Eosinophils # (Manual) Basophils # (Manual) PT INR APTT Heparin Anti-Xa Level < 0.10 L POC ABG pH POC ABG pCO2 POC ABG pO2 Sodium Potassium Chloride Carbon Dioxide 21 L BUN 5 L Creatinine Glucose 112 H POC Glucose Calcium 6.8 L Phosphorus Magnesium AST Alkaline Phosphatase C-Reactive Protein Total Protein 5.7 L Albumin 1.7 L Lipase Vitamin B12 TSH Urine WBC (Auto) Urine Chloride Urine Total Protein Vancomycin Trough Crossmatch 11/04/16 11/04/16 11/04/16 10:51 12:58 15:04 WBC RBC Hgb Hct MCV RDW Plt Count Lymph % (Auto) [place] % (Auto) [place] # Seg Neutrophils % Seg Neuts % (Manual) Lymphocytes % (Manual) Monocytes % (Manual) Basophils % (Manual) Nucleated RBC % Seg Neutrophils # Seg Neutrophils # Man Lymphocytes # (Manual) Monocytes # (Manual) Eosinophils # (Manual) Basophils # (Manual) PT INR APTT Heparin Anti-Xa Level 1.05 H POC ABG pH POC ABG pCO2 33.7 L POC ABG pO2 60 L Sodium Potassium Chloride Carbon Dioxide BUN Creatinine Glucose POC Glucose 118 H Calcium Phosphorus Magnesium AST Alkaline Phosphatase C-Reactive Protein Total Protein Albumin Lipase Vitamin B12 TSH Urine WBC (Auto) Urine Chloride Urine Total Protein Vancomycin Trough Crossmatch 11/04/16 11/04/16 11/05/16 17:20 20:31 02:30 WBC RBC Hgb Hct MCV RDW Plt Count Lymph % (Auto) [place] % (Auto) [place] # Seg Neutrophils % Seg Neuts % (Manual) Lymphocytes % (Manual) Monocytes % (Manual) Basophils % (Manual) Nucleated RBC % Seg Neutrophils # Seg Neutrophils # Man Lymphocytes # (Manual) Monocytes # (Manual) Eosinophils # (Manual) Basophils # (Manual) PT INR APTT Heparin Anti-Xa Level POC ABG pH POC ABG pCO2 POC ABG pO2 Sodium Potassium 3.5 L Chloride Carbon Dioxide 18 L BUN 5 L Creatinine 0.6 L Glucose 110 H POC Glucose 228 H 169 H Calcium 7.1 L Phosphorus Magnesium AST Alkaline Phosphatase C-Reactive Protein Total Protein Albumin 1.9 L Lipase Vitamin B12 TSH Urine WBC (Auto) Urine Chloride Urine Total Protein Vancomycin Trough Crossmatch 11/05/16 11/05/16 11/05/16 02:30 17:52 21:07 WBC 14.1 H RBC Hgb Hct MCV RDW 16.7 H Plt Count Lymph % (Auto) [place] % (Auto) [place] # Seg Neutrophils % Seg Neuts % (Manual) 80.0 H Lymphocytes % (Manual) 6.0 L Monocytes % (Manual) 8.0 H Basophils % (Manual) Nucleated RBC % Seg Neutrophils # Seg Neutrophils # Man 11.3 H Lymphocytes # (Manual) 0.8 L Monocytes # (Manual) 1.1 H Eosinophils # (Manual) Basophils # (Manual) PT INR APTT Heparin Anti-Xa Level < 0.10 L POC ABG pH POC ABG pCO2 POC ABG pO2 Sodium Potassium Chloride Carbon Dioxide BUN Creatinine Glucose POC Glucose 174 H Calcium Phosphorus Magnesium AST Alkaline Phosphatase C-Reactive Protein Total Protein Albumin Lipase Vitamin B12 TSH Urine WBC (Auto) Urine Chloride Urine Total Protein Vancomycin Trough Crossmatch 11/05/16 11/06/16 11/06/16 23:30 05:00 05:00 WBC 15.2 H RBC 3.29 L Hgb 10.0 L Hct MCV RDW 16.9 H Plt Count Lymph % (Auto) [place] % (Auto) [place] # Seg Neutrophils % Seg Neuts % (Manual) Lymphocytes % (Manual) Monocytes % (Manual) Basophils % (Manual) Nucleated RBC % Seg Neutrophils # Seg Neutrophils # Man Lymphocytes # (Manual) Monocytes # (Manual) Eosinophils # (Manual) Basophils # (Manual) PT INR APTT Heparin Anti-Xa Level 0.94 H POC ABG pH POC ABG pCO2 POC ABG pO2 Sodium Potassium Chloride Carbon Dioxide BUN Creatinine Glucose POC Glucose 131 H Calcium Phosphorus Magnesium AST Alkaline Phosphatase C-Reactive Protein Total Protein Albumin Lipase Vitamin B12 TSH Urine WBC (Auto) Urine Chloride Urine Total Protein Vancomycin Trough Crossmatch 11/06/16 11/06/16 11/06/16 05:00 11:45 18:23 WBC RBC Hgb Hct MCV RDW Plt Count Lymph % (Auto) [place] % (Auto) [place] # Seg Neutrophils % Seg Neuts % (Manual) Lymphocytes % (Manual) Monocytes % (Manual) Basophils % (Manual) Nucleated RBC % Seg Neutrophils # Seg Neutrophils # Man Lymphocytes # (Manual) Monocytes # (Manual) Eosinophils # (Manual) Basophils # (Manual) PT INR APTT Heparin Anti-Xa Level POC ABG pH POC ABG pCO2 POC ABG pO2 Sodium Potassium 3.5 L Chloride 107.1 H Carbon Dioxide 20 L BUN 4 L Creatinine 0.6 L Glucose 104 H POC Glucose 141 H 255 H Calcium 6.7 L Phosphorus Magnesium AST Alkaline Phosphatase C-Reactive Protein Total Protein Albumin Lipase Vitamin B12 TSH Urine WBC (Auto) Urine Chloride Urine Total Protein Vancomycin Trough Crossmatch 11/06/16 11/06/16 11/07/16 22:07 23:07 11:41 WBC RBC Hgb Hct MCV RDW Plt Count Lymph % (Auto) [place] % (Auto) [place] # Seg Neutrophils % Seg Neuts % (Manual) Lymphocytes % (Manual) Monocytes % (Manual) Basophils % (Manual) Nucleated RBC % Seg Neutrophils # Seg Neutrophils # Man Lymphocytes # (Manual) Monocytes # (Manual) Eosinophils # (Manual) Basophils # (Manual) PT INR APTT Heparin Anti-Xa Level 0.80 H POC ABG pH POC ABG pCO2 POC ABG pO2 Sodium Potassium Chloride Carbon Dioxide BUN Creatinine Glucose POC Glucose 183 H 132 H Calcium Phosphorus Magnesium AST Alkaline Phosphatase C-Reactive Protein Total Protein Albumin Lipase Vitamin B12 TSH Urine WBC (Auto) Urine Chloride Urine Total Protein Vancomycin Trough Crossmatch 11/07/16 11/07/16 11/07/16 12:17 17:05 17:58 WBC RBC Hgb Hct MCV RDW Plt Count Lymph % (Auto) [place] % (Auto) [place] # Seg Neutrophils % Seg Neuts % (Manual) Lymphocytes % (Manual) Monocytes % (Manual) Basophils % (Manual) Nucleated RBC % Seg Neutrophils # Seg Neutrophils # Man Lymphocytes # (Manual) Monocytes # (Manual) Eosinophils # (Manual) Basophils # (Manual) PT INR APTT Heparin Anti-Xa Level 0.87 H POC ABG pH 7.324 L POC ABG pCO2 POC ABG pO2 Sodium Potassium Chloride Carbon Dioxide BUN Creatinine Glucose POC Glucose 158 H Calcium Phosphorus Magnesium AST Alkaline Phosphatase C-Reactive Protein Total Protein Albumin Lipase Vitamin B12 TSH Urine WBC (Auto) Urine Chloride Urine Total Protein Vancomycin Trough Crossmatch 11/07/16 11/07/16 11/07/16 23:26 Unknown Unknown WBC 12.3 H RBC 2.96 L Hgb 9.1 L Hct 27.9 L MCV RDW 16.8 H Plt Count Lymph % (Auto) [place] % (Auto) [place] # Seg Neutrophils % Seg Neuts % (Manual) 80.0 H Lymphocytes % (Manual) 7.0 L Monocytes % (Manual) Basophils % (Manual) Nucleated RBC % Seg Neutrophils # Seg Neutrophils # Man 9.8 H Lymphocytes # (Manual) 0.9 L Monocytes # (Manual) Eosinophils # (Manual) Basophils # (Manual) PT INR APTT Heparin Anti-Xa Level POC ABG pH POC ABG pCO2 POC ABG pO2 Sodium Potassium Chloride Carbon Dioxide 19 L BUN Creatinine Glucose 106 H POC Glucose 130 H Calcium 6.9 L Phosphorus Magnesium AST Alkaline Phosphatase C-Reactive Protein Total Protein Albumin Lipase Vitamin B12 TSH Urine WBC (Auto) Urine Chloride Urine Total Protein Vancomycin Trough Crossmatch 11/07/16 11/08/16 11/08/16 Unknown 05:14 05:20 WBC 12.4 H RBC 3.04 L Hgb 9.2 L Hct 28.8 L MCV RDW 16.6 H Plt Count Lymph % (Auto) [place] % (Auto) [place] # Seg Neutrophils % Seg Neuts % (Manual) 77.0 H Lymphocytes % (Manual) 5.0 L Monocytes % (Manual) Basophils % (Manual) 2.0 H Nucleated RBC % Seg Neutrophils # Seg Neutrophils # Man 9.5 H Lymphocytes # (Manual) 0.6 L Monocytes # (Manual) Eosinophils # (Manual) Basophils # (Manual) 0.2 H PT INR APTT Heparin Anti-Xa Level 0.90 H POC ABG pH POC ABG pCO2 POC ABG pO2 Sodium Potassium Chloride Carbon Dioxide BUN Creatinine Glucose POC Glucose 204 H Calcium Phosphorus Magnesium AST Alkaline Phosphatase C-Reactive Protein Total Protein Albumin Lipase Vitamin B12 TSH Urine WBC (Auto) Urine Chloride Urine Total Protein Vancomycin Trough Crossmatch 11/08/16 11/08/16 11/08/16 05:20 12:10 13:10 WBC RBC Hgb Hct MCV RDW Plt Count Lymph % (Auto) [place] % (Auto) [place] # Seg Neutrophils % Seg Neuts % (Manual) Lymphocytes % (Manual) Monocytes % (Manual) Basophils % (Manual) Nucleated RBC % Seg Neutrophils # Seg Neutrophils # Man Lymphocytes # (Manual) Monocytes # (Manual) Eosinophils # (Manual) Basophils # (Manual) PT INR APTT Heparin Anti-Xa Level POC ABG pH POC ABG pCO2 33.7 L POC ABG pO2 Sodium 136 L Potassium Chloride Carbon Dioxide 19 L BUN Creatinine Glucose 192 H POC Glucose 180 H Calcium 7.1 L Phosphorus Magnesium AST Alkaline Phosphatase C-Reactive Protein Total Protein Albumin Lipase Vitamin B12 TSH Urine WBC (Auto) Urine Chloride Urine Total Protein Vancomycin Trough Crossmatch 11/08/16 11/08/16 11/08/16 17:26 20:45 23:34 WBC RBC Hgb Hct MCV RDW Plt Count Lymph % (Auto) [place] % (Auto) [place] # Seg Neutrophils % Seg Neuts % (Manual) Lymphocytes % (Manual) Monocytes % (Manual) Basophils % (Manual) Nucleated RBC % Seg Neutrophils # Seg Neutrophils # Man Lymphocytes # (Manual) Monocytes # (Manual) Eosinophils # (Manual) Basophils # (Manual) PT INR APTT Heparin Anti-Xa Level POC ABG pH POC ABG pCO2 POC ABG pO2 Sodium Potassium Chloride Carbon Dioxide BUN Creatinine Glucose POC Glucose 187 H 178 H Calcium Phosphorus Magnesium AST Alkaline Phosphatase C-Reactive Protein Total Protein Albumin Lipase Vitamin B12 TSH Urine WBC (Auto) Urine Chloride Urine Total Protein Vancomycin Trough 35.4 H Crossmatch 03/11/09/16 11/09/16 05:30 05:30 05:59 WBC 11.5 H RBC 2.96 L Hgb 9.2 L Hct 28.2 L MCV RDW 16.4 H Plt Count Lymph % (Auto) [place] % (Auto) [place] # Seg Neutrophils % Seg Neuts % (Manual) 76.0 H Lymphocytes % (Manual) 2.0 L Monocytes % (Manual) Basophils % (Manual) Nucleated RBC % Seg Neutrophils # Seg Neutrophils # Man 8.7 H Lymphocytes # (Manual) 0.2 L Monocytes # (Manual) Eosinophils # (Manual) Basophils # (Manual) PT INR APTT Heparin Anti-Xa Level POC ABG pH POC ABG pCO2 POC ABG pO2 Sodium Potassium 3.4 L Chloride 107.6 H Carbon Dioxide 19 L BUN Creatinine 0.6 L Glucose 207 H POC Glucose 263 H Calcium 7.3 L Phosphorus Magnesium AST Alkaline Phosphatase C-Reactive Protein Total Protein Albumin Lipase Vitamin B12 TSH Urine WBC (Auto) Urine Chloride Urine Total Protein Vancomycin Trough Crossmatch 11/09/16 11/09/16 11/09/16 11:49 15:24 18:04 WBC RBC Hgb Hct MCV RDW Plt Count Lymph % (Auto) [place] % (Auto) [place] # Seg Neutrophils % Seg Neuts % (Manual) Lymphocytes % (Manual) Monocytes % (Manual) Basophils % (Manual) Nucleated RBC % Seg Neutrophils # Seg Neutrophils # Man Lymphocytes # (Manual) Monocytes # (Manual) Eosinophils # (Manual) Basophils # (Manual) PT INR APTT Heparin Anti-Xa Level POC ABG pH POC ABG pCO2 33.8 L POC ABG pO2 131 H Sodium Potassium Chloride Carbon Dioxide BUN Creatinine Glucose POC Glucose 269 H 242 H Calcium Phosphorus Magnesium AST Alkaline Phosphatase C-Reactive Protein Total Protein Albumin Lipase Vitamin B12 TSH Urine WBC (Auto) Urine Chloride Urine Total Protein Vancomycin Trough Crossmatch 11/09/16 11/10/16 11/10/16 22:57 04:30 04:30 WBC 15.7 H RBC 3.17 L Hgb 9.7 L Hct 30.2 L MCV RDW 16.2 H Plt Count Lymph % (Auto) [place] % (Auto) [place] # Seg Neutrophils % Seg Neuts % (Manual) Lymphocytes % (Manual) Monocytes % (Manual) Basophils % (Manual) Nucleated RBC % Seg Neutrophils # Seg Neutrophils # Man 8.5 H Lymphocytes # (Manual) Monocytes # (Manual) Eosinophils # (Manual) 0.5 H Basophils # (Manual) PT INR APTT Heparin Anti-Xa Level POC ABG pH POC ABG pCO2 POC ABG pO2 Sodium Potassium Chloride Carbon Dioxide 19 L BUN Creatinine 0.6 L Glucose 199 H POC Glucose 239 H Calcium 7.8 L Phosphorus Magnesium AST Alkaline Phosphatase C-Reactive Protein Total Protein Albumin Lipase Vitamin B12 TSH Urine WBC (Auto) Urine Chloride Urine Total Protein Vancomycin Trough Crossmatch 11/10/16 11/10/16 11/10/16 04:30 11:32 16:00 WBC RBC Hgb Hct MCV RDW Plt Count Lymph % (Auto) [place] % (Auto) [place] # Seg Neutrophils % Seg Neuts % (Manual) Lymphocytes % (Manual) Monocytes % (Manual) Basophils % (Manual) Nucleated RBC % Seg Neutrophils # Seg Neutrophils # Man Lymphocytes # (Manual) Monocytes # (Manual) Eosinophils # (Manual) Basophils # (Manual) PT INR APTT Heparin Anti-Xa Level 1.09 H < 0.10 L POC ABG pH POC ABG pCO2 POC ABG pO2 Sodium Potassium Chloride Carbon Dioxide BUN Creatinine Glucose POC Glucose 211 H Calcium Phosphorus Magnesium AST Alkaline Phosphatase C-Reactive Protein Total Protein Albumin Lipase Vitamin B12 TSH Urine WBC (Auto) Urine Chloride Urine Total Protein Vancomycin Trough Crossmatch 11/10/16 11/10/16 11/10/16 17:39 18:00 23:06 WBC RBC Hgb Hct MCV RDW Plt Count Lymph % (Auto) [place] % (Auto) [place] # Seg Neutrophils % Seg Neuts % (Manual) Lymphocytes % (Manual) Monocytes % (Manual) Basophils % (Manual) Nucleated RBC % Seg Neutrophils # Seg Neutrophils # Man Lymphocytes # (Manual) Monocytes # (Manual) Eosinophils # (Manual) Basophils # (Manual) PT INR APTT Heparin Anti-Xa Level 0.85 H POC ABG pH POC ABG pCO2 POC ABG pO2 Sodium Potassium Chloride Carbon Dioxide BUN Creatinine Glucose POC Glucose 249 H 220 H Calcium Phosphorus Magnesium AST Alkaline Phosphatase C-Reactive Protein Total Protein Albumin Lipase Vitamin B12 TSH Urine WBC (Auto) Urine Chloride Urine Total Protein Vancomycin Trough Crossmatch 11/11/16 11/11/16 11/11/16 05:56 06:15 06:15 WBC 13.3 H RBC 2.87 L Hgb 8.7 L Hct 27.2 L MCV RDW 16.4 H Plt Count Lymph % (Auto) [place] % (Auto) [place] # 0.9 H Seg Neutrophils % 78.9 H Seg Neuts % (Manual) Lymphocytes % (Manual) Monocytes % (Manual) Basophils % (Manual) Nucleated RBC % Seg Neutrophils # 10.5 H Seg Neutrophils # Man Lymphocytes # (Manual) Monocytes # (Manual) Eosinophils # (Manual) Basophils # (Manual) PT INR APTT Heparin Anti-Xa Level POC ABG pH POC ABG pCO2 POC ABG pO2 Sodium Potassium 3.2 L Chloride Carbon Dioxide 19 L BUN Creatinine Glucose POC Glucose 117 H Calcium 7.6 L Phosphorus Magnesium AST Alkaline Phosphatase C-Reactive Protein Total Protein Albumin Lipase Vitamin B12 TSH Urine WBC (Auto) Urine Chloride Urine Total Protein Vancomycin Trough Crossmatch 11/11/16 11/11/16 11/11/16 12:26 16:58 17:33 WBC RBC Hgb Hct MCV RDW Plt Count Lymph % (Auto) [place] % (Auto) [place] # Seg Neutrophils % Seg Neuts % (Manual) Lymphocytes % (Manual) Monocytes % (Manual) Basophils % (Manual) Nucleated RBC % Seg Neutrophils # Seg Neutrophils # Man Lymphocytes # (Manual) Monocytes # (Manual) Eosinophils # (Manual) Basophils # (Manual) PT INR APTT Heparin Anti-Xa Level < 0.10 L POC ABG pH POC ABG pCO2 POC ABG pO2 Sodium Potassium Chloride Carbon Dioxide BUN Creatinine Glucose POC Glucose 114 H 161 H Calcium Phosphorus Magnesium AST Alkaline Phosphatase C-Reactive Protein Total Protein Albumin Lipase Vitamin B12 TSH Urine WBC (Auto) Urine Chloride Urine Total Protein Vancomycin Trough Crossmatch 11/12/16 11/12/16 11/12/16 05:00 05:00 05:00 WBC 12.8 H RBC 2.75 L Hgb 8.4 L Hct 25.7 L MCV RDW 16.3 H Plt Count Lymph % (Auto) [place] % (Auto) 7.5 H [place] # 1.0 H Seg Neutrophils % 78.0 H Seg Neuts % (Manual) Lymphocytes % (Manual) Monocytes % (Manual) Basophils % (Manual) Nucleated RBC % Seg Neutrophils # 10.0 H Seg Neutrophils # Man Lymphocytes # (Manual) Monocytes # (Manual) Eosinophils # (Manual) Basophils # (Manual) PT INR APTT Heparin Anti-Xa Level 0.87 H POC ABG pH POC ABG pCO2 POC ABG pO2 Sodium Potassium 3.4 L Chloride Carbon Dioxide 19 L BUN Creatinine Glucose 112 H POC Glucose Calcium 7.7 L Phosphorus Magnesium AST Alkaline Phosphatase C-Reactive Protein Total Protein Albumin Lipase Vitamin B12 TSH Urine WBC (Auto) Urine Chloride Urine Total Protein Vancomycin Trough Crossmatch 11/12/16 11/12/16 11/13/16 11:18 16:40 00:44 WBC RBC Hgb Hct MCV RDW Plt Count Lymph % (Auto) [place] % (Auto) [place] # Seg Neutrophils % Seg Neuts % (Manual) Lymphocytes % (Manual) Monocytes % (Manual) Basophils % (Manual) Nucleated RBC % Seg Neutrophils # Seg Neutrophils # Man Lymphocytes # (Manual) Monocytes # (Manual) Eosinophils # (Manual) Basophils # (Manual) PT INR APTT Heparin Anti-Xa Level POC ABG pH POC ABG pCO2 POC ABG pO2 Sodium Potassium Chloride Carbon Dioxide BUN Creatinine Glucose POC Glucose 135 H 139 H 169 H Calcium Phosphorus Magnesium AST Alkaline Phosphatase C-Reactive Protein Total Protein Albumin Lipase Vitamin B12 TSH Urine WBC (Auto) Urine Chloride Urine Total Protein Vancomycin Trough Crossmatch 11/13/16 11/13/16 11/13/16 05:28 05:28 06:02 WBC 12.7 H RBC 2.93 L Hgb 9.0 L Hct 27.6 L MCV RDW 16.1 H Plt Count Lymph % (Auto) [place] % (Auto) [place] # Seg Neutrophils % 78.6 H Seg Neuts % (Manual) Lymphocytes % (Manual) Monocytes % (Manual) Basophils % (Manual) Nucleated RBC % Seg Neutrophils # 10.0 H Seg Neutrophils # Man Lymphocytes # (Manual) Monocytes # (Manual) Eosinophils # (Manual) Basophils # (Manual) PT INR APTT Heparin Anti-Xa Level POC ABG pH POC ABG pCO2 POC ABG pO2 Sodium Potassium Chloride Carbon Dioxide 17 L BUN Creatinine Glucose 116 H POC Glucose 112 H Calcium 7.8 L Phosphorus Magnesium AST Alkaline Phosphatase C-Reactive Protein Total Protein Albumin Lipase Vitamin B12 TSH Urine WBC (Auto) Urine Chloride Urine Total Protein Vancomycin Trough Crossmatch 11/13/16 11/13/16 11/13/16 12:34 16:55 17:00 WBC RBC Hgb Hct MCV RDW Plt Count Lymph % (Auto) [place] % (Auto) [place] # Seg Neutrophils % Seg Neuts % (Manual) Lymphocytes % (Manual) Monocytes % (Manual) Basophils % (Manual) Nucleated RBC % Seg Neutrophils # Seg Neutrophils # Man Lymphocytes # (Manual) Monocytes # (Manual) Eosinophils # (Manual) Basophils # (Manual) PT INR APTT Heparin Anti-Xa Level POC ABG pH POC ABG pCO2 22.9 L POC ABG pO2 53 L Sodium Potassium Chloride Carbon Dioxide BUN Creatinine Glucose POC Glucose 109 H 122 H Calcium Phosphorus Magnesium AST Alkaline Phosphatase C-Reactive Protein Total Protein Albumin Lipase Vitamin B12 TSH Urine WBC (Auto) Urine Chloride Urine Total Protein Vancomycin Trough Crossmatch 11/13/16 11/14/16 11/14/16 23:33 04:42 04:42 WBC 11.7 H RBC 3.01 L Hgb 9.3 L Hct 28.9 L MCV RDW 16.5 H Plt Count Lymph % (Auto) [place] % (Auto) [place] # Seg Neutrophils % Seg Neuts % (Manual) 79.0 H Lymphocytes % (Manual) 10.0 L Monocytes % (Manual) Basophils % (Manual) Nucleated RBC % Seg Neutrophils # Seg Neutrophils # Man 9.2 H Lymphocytes # (Manual) Monocytes # (Manual) Eosinophils # (Manual) Basophils # (Manual) PT INR APTT Heparin Anti-Xa Level POC ABG pH POC ABG pCO2 POC ABG pO2 Sodium Potassium Chloride Carbon Dioxide 16 L BUN Creatinine Glucose 102 H POC Glucose 173 H Calcium 7.5 L Phosphorus Magnesium AST Alkaline Phosphatase C-Reactive Protein Total Protein Albumin Lipase Vitamin B12 TSH Urine WBC (Auto) Urine Chloride Urine Total Protein Vancomycin Trough Crossmatch 11/14/16 11/14/16 11/14/16 11:43 16:57 19:45 WBC RBC Hgb Hct MCV RDW Plt Count Lymph % (Auto) [place] % (Auto) [place] # Seg Neutrophils % Seg Neuts % (Manual) Lymphocytes % (Manual) Monocytes % (Manual) Basophils % (Manual) Nucleated RBC % Seg Neutrophils # Seg Neutrophils # Man Lymphocytes # (Manual) Monocytes # (Manual) Eosinophils # (Manual) Basophils # (Manual) PT INR APTT Heparin Anti-Xa Level 0.71 H POC ABG pH POC ABG pCO2 POC ABG pO2 Sodium Potassium Chloride Carbon Dioxide BUN Creatinine Glucose POC Glucose 130 H 209 H Calcium Phosphorus Magnesium AST Alkaline Phosphatase C-Reactive Protein Total Protein Albumin Lipase Vitamin B12 TSH Urine WBC (Auto) Urine Chloride Urine Total Protein Vancomycin Trough Crossmatch 11/14/16 11/15/16 11/16/16 23:43 23:47 06:11 WBC RBC Hgb Hct MCV RDW Plt Count Lymph % (Auto) [place] % (Auto) [place] # Seg Neutrophils % Seg Neuts % (Manual) Lymphocytes % (Manual) Monocytes % (Manual) Basophils % (Manual) Nucleated RBC % Seg Neutrophils # Seg Neutrophils # Man Lymphocytes # (Manual) Monocytes # (Manual) Eosinophils # (Manual) Basophils # (Manual) PT INR APTT Heparin Anti-Xa Level POC ABG pH POC ABG pCO2 POC ABG pO2 Sodium Potassium Chloride Carbon Dioxide BUN Creatinine Glucose POC Glucose 167 H 114 H 125 H Calcium Phosphorus Magnesium AST Alkaline Phosphatase C-Reactive Protein Total Protein Albumin Lipase Vitamin B12 TSH Urine WBC (Auto) Urine Chloride Urine Total Protein Vancomycin Trough Crossmatch 11/16/16 11/16/16 11/16/16 09:05 09:05 09:05 WBC RBC 2.53 L Hgb 8.0 L Hct 23.7 L MCV RDW 15.9 H Plt Count Lymph % (Auto) [place] % (Auto) [place] # Seg Neutrophils % Seg Neuts % (Manual) Lymphocytes % (Manual) Monocytes % (Manual) Basophils % (Manual) Nucleated RBC % Seg Neutrophils # Seg Neutrophils # Man Lymphocytes # (Manual) Monocytes # (Manual) Eosinophils # (Manual) Basophils # (Manual) PT INR APTT Heparin Anti-Xa Level POC ABG pH POC ABG pCO2 POC ABG pO2 Sodium Potassium 2.5 L* D Chloride Carbon Dioxide 19 L BUN 5 L Creatinine Glucose 103 H POC Glucose Calcium 6.6 L Phosphorus Magnesium 1.3 L AST Alkaline Phosphatase C-Reactive Protein Total Protein Albumin Lipase Vitamin B12 TSH Urine WBC (Auto) Urine Chloride Urine Total Protein Vancomycin Trough Crossmatch 11/16/16 11/16/16 11/16/16 12:15 13:00 14:45 WBC RBC Hgb Hct MCV RDW Plt Count Lymph % (Auto) [place] % (Auto) [place] # Seg Neutrophils % Seg Neuts % (Manual) Lymphocytes % (Manual) Monocytes % (Manual) Basophils % (Manual) Nucleated RBC % Seg Neutrophils # Seg Neutrophils # Man Lymphocytes # (Manual) Monocytes # (Manual) Eosinophils # (Manual) Basophils # (Manual) PT 19.1 H INR 1.61 H APTT Heparin Anti-Xa Level POC ABG pH 7.479 H POC ABG pCO2 23.6 L POC ABG pO2 Sodium Potassium Chloride Carbon Dioxide BUN Creatinine Glucose POC Glucose 129 H Calcium Phosphorus Magnesium AST Alkaline Phosphatase C-Reactive Protein Total Protein Albumin Lipase Vitamin B12 TSH Urine WBC (Auto) Urine Chloride Urine Total Protein Vancomycin Trough Crossmatch 11/16/16 11/17/16 11/17/16 17:43 00:30 04:32 WBC RBC Hgb Hct MCV RDW Plt Count Lymph % (Auto) [place] % (Auto) [place] # Seg Neutrophils % Seg Neuts % (Manual) Lymphocytes % (Manual) Monocytes % (Manual) Basophils % (Manual) Nucleated RBC % Seg Neutrophils # Seg Neutrophils # Man Lymphocytes # (Manual) Monocytes # (Manual) Eosinophils # (Manual) Basophils # (Manual) PT INR APTT Heparin Anti-Xa Level POC ABG pH POC ABG pCO2 POC ABG pO2 Sodium Potassium Chloride Carbon Dioxide 18 L BUN Creatinine Glucose 127 H POC Glucose 224 H 259 H Calcium 7.5 L Phosphorus Magnesium AST Alkaline Phosphatase C-Reactive Protein Total Protein Albumin Lipase Vitamin B12 TSH Urine WBC (Auto) Urine Chloride Urine Total Protein Vancomycin Trough Crossmatch 11/17/16 11/17/16 11/17/16 05:42 08:34 12:19 WBC RBC 2.85 L Hgb 8.9 L Hct 26.5 L MCV RDW 16.2 H Plt Count Lymph % (Auto) [place] % (Auto) [place] # Seg Neutrophils % Seg Neuts % (Manual) Lymphocytes % (Manual) Monocytes % (Manual) Basophils % (Manual) Nucleated RBC % Seg Neutrophils # Seg Neutrophils # Man Lymphocytes # (Manual) Monocytes # (Manual) Eosinophils # (Manual) Basophils # (Manual) PT INR APTT Heparin Anti-Xa Level POC ABG pH POC ABG pCO2 POC ABG pO2 Sodium Potassium Chloride Carbon Dioxide BUN Creatinine Glucose POC Glucose 118 H 264 H Calcium Phosphorus Magnesium AST Alkaline Phosphatase C-Reactive Protein Total Protein Albumin Lipase Vitamin B12 TSH Urine WBC (Auto) Urine Chloride Urine Total Protein Vancomycin Trough Crossmatch 11/17/16 11/17/16 11/18/16 16:52 23:44 04:53 WBC RBC Hgb Hct MCV RDW Plt Count Lymph % (Auto) [place] % (Auto) [place] # Seg Neutrophils % Seg Neuts % (Manual) Lymphocytes % (Manual) Monocytes % (Manual) Basophils % (Manual) Nucleated RBC % Seg Neutrophils # Seg Neutrophils # Man Lymphocytes # (Manual) Monocytes # (Manual) Eosinophils # (Manual) Basophils # (Manual) PT INR APTT Heparin Anti-Xa Level POC ABG pH POC ABG pCO2 POC ABG pO2 Sodium Potassium Chloride Carbon Dioxide BUN Creatinine Glucose POC Glucose 256 H 109 H 287 H Calcium Phosphorus Magnesium AST Alkaline Phosphatase C-Reactive Protein Total Protein Albumin Lipase Vitamin B12 TSH Urine WBC (Auto) Urine Chloride Urine Total Protein Vancomycin Trough Crossmatch 11/18/16 11/18/16 11/18/16 05:31 05:45 05:45 WBC RBC Hgb Hct MCV RDW Plt Count Lymph % (Auto) [place] % (Auto) [place] # Seg Neutrophils % Seg Neuts % (Manual) Lymphocytes % (Manual) Monocytes % (Manual) Basophils % (Manual) Nucleated RBC % Seg Neutrophils # Seg Neutrophils # Man Lymphocytes # (Manual) Monocytes # (Manual) Eosinophils # (Manual) Basophils # (Manual) PT 20.1 H INR 1.72 H APTT 131.1 H* Heparin Anti-Xa Level 0.18 L POC ABG pH 7.252 L POC ABG pCO2 32.0 L POC ABG pO2 Sodium Potassium Chloride 107.1 H Carbon Dioxide 17 L BUN Creatinine Glucose 284 H POC Glucose Calcium 7.2 L Phosphorus Magnesium AST Alkaline Phosphatase C-Reactive Protein Total Protein 5.5 L Albumin 2.1 L Lipase Vitamin B12 TSH Urine WBC (Auto) Urine Chloride Urine Total Protein Vancomycin Trough Crossmatch 11/18/16 11/18/16 11/18/16 05:45 09:17 12:06 WBC 13.3 H RBC 3.07 L Hgb 9.2 L Hct 29.5 L MCV RDW 16.9 H Plt Count Lymph % (Auto) 11.0 L [place] % (Auto) [place] # Seg Neutrophils % 82.9 H Seg Neuts % (Manual) Lymphocytes % (Manual) Monocytes % (Manual) Basophils % (Manual) Nucleated RBC % Seg Neutrophils # 11.0 H Seg Neutrophils # Man Lymphocytes # (Manual) Monocytes # (Manual) Eosinophils # (Manual) Basophils # (Manual) PT INR APTT Heparin Anti-Xa Level POC ABG pH POC ABG pCO2 24.3 L POC ABG pO2 79 L Sodium Potassium Chloride Carbon Dioxide BUN Creatinine Glucose POC Glucose 433 H Calcium Phosphorus Magnesium AST Alkaline Phosphatase C-Reactive Protein Total Protein Albumin Lipase Vitamin B12 TSH Urine WBC (Auto) Urine Chloride Urine Total Protein Vancomycin Trough Crossmatch 11/18/16 11/18/16 11/18/16 12:09 13:00 17:22 WBC 12.6 H RBC 2.79 L Hgb 8.6 L Hct 26.6 L MCV RDW 17.0 H Plt Count Lymph % (Auto) [place] % (Auto) [place] # Seg Neutrophils % Seg Neuts % (Manual) 90.0 H Lymphocytes % (Manual) 8.0 L Monocytes % (Manual) Basophils % (Manual) Nucleated RBC % Seg Neutrophils # Seg Neutrophils # Man 11.3 H Lymphocytes # (Manual) 1.0 L Monocytes # (Manual) Eosinophils # (Manual) Basophils # (Manual) PT INR APTT Heparin Anti-Xa Level POC ABG pH POC ABG pCO2 POC ABG pO2 Sodium Potassium Chloride Carbon Dioxide BUN Creatinine Glucose POC Glucose 429 H 297 H Calcium Phosphorus Magnesium AST Alkaline Phosphatase C-Reactive Protein Total Protein Albumin Lipase Vitamin B12 TSH Urine WBC (Auto) Urine Chloride Urine Total Protein Vancomycin Trough Crossmatch 11/18/16 11/19/16 11/19/16 23:27 04:30 04:30 WBC RBC 2.92 L Hgb 8.8 L Hct 27.0 L MCV RDW 16.6 H Plt Count Lymph % (Auto) [place] % (Auto) [place] # Seg Neutrophils % Seg Neuts % (Manual) Lymphocytes % (Manual) Monocytes % (Manual) Basophils % (Manual) Nucleated RBC % Seg Neutrophils # Seg Neutrophils # Man Lymphocytes # (Manual) Monocytes # (Manual) Eosinophils # (Manual) Basophils # (Manual) PT INR APTT Heparin Anti-Xa Level POC ABG pH POC ABG pCO2 POC ABG pO2 Sodium Potassium 3.0 L Chloride 107.9 H Carbon Dioxide 20 L BUN Creatinine Glucose 231 H POC Glucose 268 H Calcium 7.1 L Phosphorus Magnesium AST Alkaline Phosphatase C-Reactive Protein Total Protein 5.5 L Albumin 2.1 L Lipase Vitamin B12 TSH Urine WBC (Auto) Urine Chloride Urine Total Protein Vancomycin Trough Crossmatch 11/19/16 11/19/16 11/19/16 04:40 06:40 10:00 WBC RBC Hgb Hct MCV RDW Plt Count Lymph % (Auto) [place] % (Auto) [place] # Seg Neutrophils % Seg Neuts % (Manual) Lymphocytes % (Manual) Monocytes % (Manual) Basophils % (Manual) Nucleated RBC % Seg Neutrophils # Seg Neutrophils # Man Lymphocytes # (Manual) Monocytes # (Manual) Eosinophils # (Manual) Basophils # (Manual) PT INR APTT Heparin Anti-Xa Level POC ABG pH POC ABG pCO2 POC ABG pO2 Sodium Potassium Chloride Carbon Dioxide BUN Creatinine Glucose POC Glucose 267 H 244 H Calcium Phosphorus Magnesium 1.4 L AST Alkaline Phosphatase C-Reactive Protein Total Protein Albumin Lipase Vitamin B12 TSH Urine WBC (Auto) Urine Chloride Urine Total Protein Vancomycin Trough Crossmatch 11/19/16 11/19/16 11/20/16 12:08 18:10 05:00 WBC RBC Hgb Hct MCV RDW Plt Count Lymph % (Auto) [place] % (Auto) [place] # Seg Neutrophils % Seg Neuts % (Manual) Lymphocytes % (Manual) Monocytes % (Manual) Basophils % (Manual) Nucleated RBC % Seg Neutrophils # Seg Neutrophils # Man Lymphocytes # (Manual) Monocytes # (Manual) Eosinophils # (Manual) Basophils # (Manual) PT INR APTT Heparin Anti-Xa Level POC ABG pH POC ABG pCO2 POC ABG pO2 Sodium Potassium 3.4 L Chloride 107.4 H Carbon Dioxide 20 L BUN Creatinine Glucose 140 H POC Glucose 254 H 265 H Calcium 7.2 L Phosphorus Magnesium AST Alkaline Phosphatase C-Reactive Protein Total Protein Albumin Lipase Vitamin B12 TSH Urine WBC (Auto) Urine Chloride Urine Total Protein Vancomycin Trough Crossmatch 11/20/16 05:44 WBC RBC Hgb Hct MCV RDW Plt Count Lymph % (Auto) [place] % (Auto) [place] # Seg Neutrophils % Seg Neuts % (Manual) Lymphocytes % (Manual) Monocytes % (Manual) Basophils % (Manual) Nucleated RBC % Seg Neutrophils # Seg Neutrophils # Man Lymphocytes # (Manual) Monocytes # (Manual) Eosinophils # (Manual) Basophils # (Manual) PT INR APTT Heparin Anti-Xa Level POC ABG pH POC ABG pCO2 POC ABG pO2 Sodium Potassium Chloride Carbon Dioxide BUN Creatinine Glucose POC Glucose 163 H Calcium Phosphorus Magnesium AST Alkaline Phosphatase C-Reactive Protein Total Protein Albumin Lipase Vitamin B12 TSH Urine WBC (Auto) Urine Chloride Urine Total Protein Vancomycin Trough Crossmatch Chest x-ray: image reviewed Allied health notes reviewed: RT
[2016-11-20] MEDS: LEVAQUIN 750MG/150ML 750 MG/150 ML BAG IV SCH (11:32)
[2016-11-20] MEDS ORDERED: SIMPLE SYRUP FEEDTUBE PRN ×2 (11:54)
[2016-11-20] MEDS ORDERED: SODIUM BICARBONATE FEEDTUBE PRN (11:54)
[2016-11-20] MEDS ORDERED: PANCREAZE DR 10,500 UNIT FEEDTUBE PRN (11:54)
--- NOTE | 2016-11-20 11:59 | Event Note ---
Date: 11/20/16 Pt on mechanical ventilation. Does not respond to verbal stimulus. Pt s/p right BKA. 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 However, it appears stable at present without s/s of infection of rapid deterioration. Continue to offload pressure and good LWC. Would not recommend additional vascular surgical intervention at present. Her other medical conditions will take priority. Pt s/p CP arrest over the weekend. EEG interpreted, findings suggest anoxic encephalopathy. Await neurology's recommendations. Discussed with patient's family at the bedside.
[2016-11-20] MEDS: POTASSIUM CHLORIDE FEEDTUBE SCH ×2 (12:56→17:00)
[2016-11-20] MEDS: TYLENOL PO PRN ×2 (13:43→17:03)
--- NOTE | 2016-11-20 18:18 | Progress Note ---
Assessment and Plan Assessment and plan: 66-year-old woman who presented with lethargy and altered mental status she deteriorated and was intubated and in emergency room, she was managed for DKA and she also developed sepsis due to UTI and right lower extremity ischemia * S/P cardiopulomary arrest. * A/C respiratory failure with hypercapenia * Seizure-Per family prior hx * acute ischemia of right lower ext due to SFA thrombosis- s/p right BKA * LUCY likely vasomotor nephropathy-resolved * Sepsis- Multifactorial * Anemia of chronic disease * Hematuria * Metabolic acidosis * Severe Hypokalemia * hypomagnesemia Plan: * Continue supportive care will obtain a CT of the head to rule out any other pathology. * MRI brain with no gross abnormality * Highly concerning for anoxic brain injury. Await final input from neurology. * Neurologic input noted. EEG abnormal. * Replace potassium and magnessium * Heparin had to be held due to the risk associated considering recent CPR with chest compressions. * Patient remains at risk for right BKA remains poor prognosis and likely will need a conversion to AKA. Holding off heparin which is necessary at this time also worsens that prescription. * Continue subcutaneous insulin and electrolyte replacement * Patient unfortunately has poor prognosis has been unable to be weaned from the vent prior to the cardiopulmonary arrest was doing well on spontaneous breathing and event. * Antibiotics per ID. FLAGY ADDED * Continue Cardizem and beta juan antonio * Monitor electrolytes and hemoglobin. * continue dilantin * DVT and GI prophylaxis * No family present today. I have discussed with nursing staff 35 mins critical care time. History Interval history: Patient seen and examined, still unresponsive with non purposeful movements.continues on full ventilatory support Hospitalist Physical - Physical exam Narrative exam: VITAL SIGNS: Reviewed. GENERAL: vent support Vital signs as documented. HEAD: No signs of head trauma. EYES: Pupils are equal. Extraocular motions intact. EARS: Hearing grossly intact. MOUTH: missing dentition NECK: Trach CHEST: Chest with diminshed CARDIAC: Regular rate and rhythm. S1 and S2, without murmurs, gallops, or rubs. VASCULAR: trace Edema. Peripheral pulses left lower ext ABDOMEN: Soft, distended, tender. No rebound or guarding, and no masses palpated. Bowel Sounds normal. MUSCULOSKELETAL: BKA right lower extremity dressing in place. Some necrosis to the lateral aspect. NEUROLOGIC EXAM: not following commands, opens and closes eyes none purposeful PSYCHIATRIC: unable to assess SKIN: dressing to right lower ext stump - Constitutional Vitals: Temp Pulse Resp BP Pulse Ox 101.1 F H 118 H 21 115/62 100 11/20/16 16:00 11/20/16 17:30 11/20/16 17:30 11/20/16 17:30 11/20/16 17:00 General appearance: Present: no acute distress Results - Labs CBC & Chem 7: 11/19/16 04:30 11/20/16 05:00 Labs: Laboratory Last Values WBC 10.8 K/mm3 (4.5-11.0) 11/19/16 04:30 RBC 2.92 M/mm3 (3.65-5.03) L 11/19/16 04:30 Hgb 8.8 gm/dl (10.1-14.3) L 11/19/16 04:30 Hct 27.0 % (30.3-42.9) L 11/19/16 04:30 MCV 93 fl (79-97) 11/19/16 04:30 MCH 30 pg (28-32) 11/19/16 04:30 MCHC 33 % (30-34) 11/19/16 04:30 RDW 16.6 % (13.2-15.2) H 11/19/16 04:30 Plt Count 390 K/mm3 (140-440) 11/19/16 04:30 Lymph % (Auto) 11.0 % (13.4-35.0) L 11/18/16 05:45 [place] % (Auto) 4.8 % (0.0-7.3) 11/18/16 05:45 Eos % (Auto) 1.0 % (0.0-4.3) 11/18/16 05:45 Baso % (Auto) 0.3 % (0.0-1.8) 11/18/16 05:45 Lymph # 1.5 K/mm3 (1.2-5.4) 11/18/16 05:45 [place] # 0.6 K/mm3 (0.0-0.8) 11/18/16 05:45 Eos # 0.1 K/mm3 (0.0-0.4) 11/18/16 05:45 Baso # 0.0 K/mm3 (0.0-0.1) 11/18/16 05:45 Add Manual Diff Complete 11/18/16 13:00 Total Counted 100 11/18/16 13:00 Seg Neutrophils % 82.9 % (40.0-70.0) H 11/18/16 05:45 Seg Neuts % (Manual) 90.0 % (40.0-70.0) H 11/18/16 13:00 Band Neutrophils % 0 % 11/18/16 13:00 Lymphocytes % (Manual) 8.0 % (13.4-35.0) L 11/18/16 13:00 Reactive Lymphs % (Man) 0 % 11/18/16 13:00 Monocytes % (Manual) 2.0 % (0.0-7.3) 11/18/16 13:00 Eosinophils % (Manual) 0 % (0.0-4.3) 11/18/16 13:00 Basophils % (Manual) 0 % (0.0-1.8) 11/18/16 13:00 Metamyelocytes % 0 % 11/18/16 13:00 Myelocytes % 0 % 11/18/16 13:00 Promyelocytes % 0 % 11/18/16 13:00 Blast Cells % 0 % 11/18/16 13:00 Nucleated RBC % Not Reportable 11/18/16 13:00 Seg Neutrophils # 11.0 K/mm3 (1.8-7.7) H 11/18/16 05:45 Seg Neutrophils # Man 11.3 K/mm3 (1.8-7.7) H 11/18/16 13:00 Band Neutrophils # 0.0 K/mm3 11/18/16 13:00 Lymphocytes # (Manual) 1.0 K/mm3 (1.2-5.4) L 11/18/16 13:00 Abs React Lymphs (Man) 0.0 K/mm3 11/18/16 13:00 Monocytes # (Manual) 0.3 K/mm3 (0.0-0.8) 11/18/16 13:00 Eosinophils # (Manual) 0.0 K/mm3 (0.0-0.4) 11/18/16 13:00 Basophils # (Manual) 0.0 K/mm3 (0.0-0.1) 11/18/16 13:00 Metamyelocytes # 0.0 K/mm3 11/18/16 13:00 Myelocytes # 0.0 K/mm3 11/18/16 13:00 Promyelocytes # 0.0 K/mm3 11/18/16 13:00 Blast Cells # 0.0 K/mm3 11/18/16 13:00 Pathologist Review 10/29/16 09:30 WBC Morphology Not Reportable 11/18/16 13:00 Hypersegmented Neuts Not Reportable 11/18/16 13:00 Hyposegmented Neuts Not Reportable 11/18/16 13:00 Hypogranular Neuts Not Reportable 11/18/16 13:00 Hypersegmented Polys TNR 10/17/16 07:08 Smudge Cells Not Reportable 11/18/16 13:00 Toxic Granulation Not Reportable 11/18/16 13:00 Toxic Vacuolation Not Reportable 11/18/16 13:00 Dohle Bodies Not Reportable 11/18/16 13:00 Pelger-Huet Anomaly Not Reportable 11/18/16 13:00 [place] Rods Not Reportable 11/18/16 13:00 Platelet Estimate Consistent w auto 11/18/16 13:00 Clumped Platelets Not Reportable 11/18/16 13:00 Plt Clumps, EDTA Not Reportable 11/18/16 13:00 Large Platelets Not Reportable 11/18/16 13:00 Giant Platelets Not Reportable 11/18/16 13:00 Platelet Satelliting Not Reportable 11/18/16 13:00 Plt Morphology Comment Not Reportable 11/18/16 13:00 RBC Morphology Not Reportable 11/18/16 13:00 Dimorphic RBCs Not Reportable 11/18/16 13:00 Polychromasia Not Reportable 11/18/16 13:00 Hypochromasia Not Reportable 11/18/16 13:00 Poikilocytosis Not Reportable 11/18/16 13:00 Basophilic Stippling TNR 10/17/16 07:08 Anisocytosis 1+ 11/18/16 13:00 Microcytosis Not Reportable 11/18/16 13:00 Macrocytosis Not Reportable 11/18/16 13:00 Spherocytes Not Reportable 11/18/16 13:00 Pappenheimer Bodies Not Reportable 11/18/16 13:00 Sickle Cells Not Reportable 11/18/16 13:00 Target Cells Not Reportable 11/18/16 13:00 Tear Drop Cells Not Reportable 11/18/16 13:00 Ovalocytes Not Reportable 11/18/16 13:00 Stomatocytes Few 11/03/16 00:05 Helmet Cells Not Reportable 11/18/16 13:00 [place] Bodies Not Reportable 11/18/16 13:00 [place] Rings Not Reportable 11/18/16 13:00 [place] Cells Not Reportable 11/18/16 13:00 Bite Cells Not Reportable 11/18/16 13:00 Crenated Cell Not Reportable 11/18/16 13:00 Elliptocytes Not Reportable 11/18/16 13:00 Acanthocytes (Spur) Not Reportable 11/18/16 13:00 Rouleaux Not Reportable 11/18/16 13:00 Hemoglobin C Crystals Not Reportable 11/18/16 13:00 Schistocytes Not Reportable 11/18/16 13:00 Malaria parasites Not Reportable 11/18/16 13:00 David Bodies Not Reportable 11/18/16 13:00 Hem Pathologist Commnt No 11/18/16 13:00 PT 20.1 Sec. (12.2-14.9) H 11/18/16 05:45 INR 1.72 (0.87-1.13) H 11/18/16 05:45 APTT 131.1 Sec. (24.2-36.6) H* 11/18/16 05:45 Heparin Anti-Xa Level 0.51 U.I./ml (0.3-0.7) 11/18/16 11:16 POC ABG pH 7.434 (7.35-7.45) 11/18/16 09:17 POC ABG pCO2 24.3 (35-45) L 11/18/16 09:17 POC ABG pO2 79 (80-105) L 11/18/16 09:17 POC ABG HCO3 16.3 11/18/16 09:17 POC ABG Total CO2 17 11/18/16 09:17 POC ABG O2 Sat 96 11/18/16 09:17 POC ABG Base Excess -8 11/18/16 09:17 VBG pH 7.020 (7.320-7.420) L* 10/13/16 04:22 FiO2 50 % 11/18/16 09:17 Sodium 142 mmol/L (137-145) 11/20/16 05:00 Potassium 3.4 mmol/L (3.6-5.0) L 11/20/16 05:00 Chloride 107.4 mmol/L (98-107) H 11/20/16 05:00 Carbon Dioxide 20 mmol/L (22-30) L 11/20/16 05:00 Anion Gap 18 mmol/L 11/20/16 05:00 BUN 10 mg/dL (7-17) 11/20/16 05:00 Creatinine 0.9 mg/dL (0.7-1.2) 11/20/16 05:00 Estimated GFR > 60 ml/min 11/20/16 05:00 BUN/Creatinine Ratio 11.11 % 11/20/16 05:00 Glucose 140 mg/dL (65-100) H 11/20/16 05:00 POC Glucose 113 (70-105) H 11/20/16 16:45 Osmolality 332 Mosm/kg 10/14/16 07:03 Lactic Acid 1.8 mmol/L (0.7-2.0) 10/14/16 07:03 Calcium 7.2 mg/dL (8.4-10.2) L 11/20/16 05:00 Phosphorus 2.7 mg/dL (2.5-4.5) D 10/21/16 Unknown Magnesium 2.0 mg/dL (1.7-2.3) 11/20/16 05:00 Total Bilirubin 0.2 mg/dL (0.1-1.2) 11/19/16 04:30 AST 9 units/L (5-40) 11/19/16 04:30 ALT 7 units/L (7-56) 11/19/16 04:30 Alkaline Phosphatase 82 units/L (35-129) 11/19/16 04:30 Ammonia 35.0 umol/L (25-60) 10/13/16 05:40 Total Creatine Kinase 107 units/L (30-135) 10/13/16 04:22 CK-MB (CK-2) 3.1 ng/mL (0.0-4.0) 10/13/16 04:22 CK-MB (CK-2) Rel Index 2.8 (0-4) 10/13/16 04:22 Troponin T < 0.010 ng/mL (0.00-0.029) 10/14/16 18:55 C-Reactive Protein 10.50 mg/dL (0.00-1.30) H 10/13/16 16:14 Total Protein 5.5 g/dL (6.3-8.2) L 11/19/16 04:30 Albumin 2.1 g/dL (3.9-5) L 11/19/16 04:30 Albumin/Globulin Ratio 0.6 % 11/19/16 04:30 Amylase 30 units/L (27-131) 11/10/16 04:30 Lipase 41 units/L (13-60) 11/10/16 04:30 Vitamin B12 976.8 pg/mL (211-911) H 10/22/16 10:25 TSH 0.162 mlU/mL (0.270-4.200) L 10/22/16 14:50 Free T4 0.77 ng/dL (0.76-1.46) 10/22/16 14:50 Urine Color Yellow (Yellow) 11/14/16 19:39 Urine Turbidity Cloudy (Clear) 11/14/16 19:39 Urine pH 6.0 (5.0-7.0) 11/14/16 19:39 Ur Specific Only 1.010 (1.003-1.030) 11/14/16 19:39 Urine Protein 30 mg/dl mg/dL (Negative) 11/14/16 19:39 Urine Glucose (UA) 50 mg/dL (Negative) 11/14/16 19:39 Urine Ketones 20 mg/dL (Negative) 11/14/16 19:39 Urine Blood Lg (Negative) 11/14/16 19:39 Urine Nitrite Neg (Negative) 11/14/16 19:39 Urine Bilirubin Neg (Negative) 11/14/16 19:39 Urine Urobilinogen < 2.0 mg/dL (<2.0) 11/14/16 19:39 Ur Leukocyte Esterase Sm (Negative) 11/14/16 19:39 Urine WBC (Auto) 3.0 /HPF (0.0-6.0) 11/14/16 19:39 Urine RBC (Auto) > 182.0 /HPF (0.0-6.0) 11/14/16 19:39 U Epithel Cells (Auto) 1.0 /HPF (0-13.0) 10/15/16 11:05 Urine Bacteria (Auto) 1+ /HPF (Negative) 11/14/16 19:39 Urine Mucus Few /HPF 11/14/16 19:39 Urine Yeast (Budding) 2+ /HPF 10/15/16 11:05 Urine Osmolality 487 Mosm/kg 10/13/16 Unknown Urine Creatinine < 4.2 mg/dL (0.1-20.0) 10/13/16 Unknown Protein/Creatinin Ratio 0.00 10/13/16 Unknown Urine Sodium 10 mEq/L 10/13/16 Unknown Urine Potassium 1.00 mEq/L 10/13/16 Unknown Urine Chloride 10.0 mEq/L (110-250) L 10/13/16 Unknown Urine Total Protein < 4 mg/dL (5-11.8) L 10/13/16 Unknown Vancomycin Trough 45.8 ug/mL (5.0-20.0) H 11/20/16 13:03 Random Vancomycin 19.4 ug/mL (0-40.0) 11/11/16 06:15 Ketones 107.3 mg/dL (0.2-2.8) H 10/13/16 04:22 Blood Type A POSITIVE 11/03/16 18:01 Antibody Screen Negative 11/03/16 18:01 Crossmatch See Detail 11/03/16 18:01
[2016-11-21] MEDS: REGLAN IV SCH ×5 (00:30→23:29)
[2016-11-21] MEDS: LASIX IV SCH ×3 (00:30→23:26)
[2016-11-21] MEDS: LOPRESSOR PO SCH ×5 (00:31→23:26)
[2016-11-21] MEDS: TYLENOL PO PRN ×2 (00:32→23:27)
[2016-11-21] MEDS: FLAGYL 500 MG/100 ML 500 MG/100 ML BAG IV SCH ×4 (00:40→23:25)
[2016-11-21] MEDS: DILAUDID IV PRN ×2 (03:16→18:05)
[2016-11-21] MEDS ORDERED: CATHFLO IV ONE ×2 (05:43→11:16)
[2016-11-21] MEDS ORDERED: CATHFLO ONE (05:55)
[2016-11-21] MEDS ORDERED: WATER FOR INJ (PF) 10 ML ONE ×2 (05:59→20:07)
[2016-11-21] MEDS: HEPARIN SUB-Q SCH ×3 (06:00→22:56)
[2016-11-21] MEDS: DILANTIN IV SCH ×3 (06:00→22:56)
[2016-11-21 07:39] LABS: Anion Gap 17 mmol/L; Blood Urea Nitrogen 15 mg/dL (7-17); Calcium 7.4 mg/dL (8.4-10.2); Carbon Dioxide 19 mmol/L (22-30); Chloride 101.9 mmol/L (98-107); Glucose 280 mg/dL (65-100); Potassium 4.5 mmol/L (3.6-5.0); Sodium 133 mmol/L (137-145)
[2016-11-21] MEDS: PLAVIX PO SCH (09:54)
[2016-11-21] MEDS: PEPCID PO SCH ×2 (09:54→22:56)
[2016-11-21] MEDS: LEVAQUIN 750MG/150ML 750 MG/150 ML BAG IV SCH (09:54)
[2016-11-21] MEDS: LEVEMIR SUB-Q SCH (09:54)
[2016-11-21] MEDS: VANCOMYCIN VIAL 1,500 MG in NACL 0.9% 500 ML 500 ML IV SCH (09:55)
--- NOTE | 2016-11-21 11:05 | Progress Note ---
Assessment and Plan s/p EEG - findings consistent with anoxic encephalopathy and cortical irritability per neurology. Cont Lopressor, 25mg Q6H. Hold for SBP <100 and HR <60. Replete lytes PRN to maintatin serum K+ ~4 and serum Mg ~2. Prognosis is guarded. The patient has been seen in conjunction with Dr. Lama who agrees with the assessment and plan of care. - Patient Problems (1) Cardiac arrest Current Visit: Yes Status: Resolved (2) Sinus tachycardia Current Visit: Yes Status: Acute (3) Acute respiratory failure with hypercapnia Current Visit: Yes Status: Acute (4) Sepsis Current Visit: Yes Status: Acute Qualifiers: Sepsis type: S (5) PVD (peripheral vascular disease) Current Visit: Yes Status: Chronic (6) S/P BKA (below knee amputation) Current Visit: Yes Status: Chronic Qualifiers: Laterality: L (7) DVT (deep venous thrombosis) Current Visit: Yes Status: Acute Qualifiers: DVT location: D Affected thrombotic vein of extremity: A Laterality: L Chronicity: C (8) Anemia Current Visit: Yes Status: Acute Qualifiers: Anemia type: A Iron deficiency anemia type: I Vitamin B12 deficiency anemia type: V Folate deficiency anemia type: F Bone marrow failure anemia type: B Hemolytic anemia type: H Other causes of anemia: O (9) Diabetes Current Visit: Yes Status: Chronic Qualifiers: Diabetes mellitus type: D Diabetes mellitus complication status: D Diabetes mellitus complication detail: D Diabetic retinopathy severity: D Proliferative retinopathy type: P Diabetes mellitus macular edema: D Diabetes mellitus fpc insulin use: D Laterality: L Chronic kidney disease stage: C Subjective Date of service: 11/21/16 Principal diagnosis: respiratory failure on mechanical ventilatory support, DKA Interval history: remains trached, on vent. In SR on tele, HR 90s, BPs stable, off pressors. Objective Last Vital Signs Temp 98.6 F 11/21/16 08:00 Pulse 99 H 11/21/16 08:30 Resp 41 H 11/21/16 08:00 BP 147/82 11/21/16 08:30 Pulse Ox 100 11/21/16 08:35 - Physical Examination General: No Apparent Distress HEENT: Positive: Normocephaly, Mucus Membranes Moist Neck: Positive: neck supple, trachea midline, Other (trach) Cardiac: Positive: Reg Rate and Rhythm, S1/S2 Lungs: Positive: Decreased Breath Sounds, Oxygen, Ventilated Respirations, Other (trached) Neuro: Positive: Other (DARRIAN; no purposeful movements noted) Abdomen: Positive: Soft. Negative: Tender Skin: Positive: Clear. Negative: Rash Extremities: Present: Other (right below-knee amputation left leg no edema) - Labs and Meds Comprehensive Metabolic Panel 11/21/16 Range/Units 05:00 Sodium 133 L D (137-145) mmol/L Potassium 4.5 D (3.6-5.0) mmol/L Chloride 101.9 (98-107) mmol/L Carbon Dioxide 19 L (22-30) mmol/L BUN 15 (7-17) mg/dL Creatinine 1.0 (0.7-1.2) mg/dL Glucose 280 H (65-100) mg/dL Calcium 7.4 L (8.4-10.2) mg/dL - Imaging and Cardiology Echo: report reviewed (tds 10/24/2016 normal LV function with no significant regurgitations) - Telemetry EKG Rhythm: Sinus Rhythm - Allied health notes Allied health notes reviewed: RT
--- NOTE | 2016-11-21 12:04 | Progress Note ---
Assessment and Plan - Patient Problems (1) Acute respiratory failure with hypercapnia Current Visit: Yes Status: Acute Plan to address problem: - continue aspiration precautions / VAP bundles - continue bronchodilators and pulmonary toilet - continue to wean oxygen to keep sats > 94% - hold daily bedside SBT's today while neuro-imaging is conducted - cardiac arrest and post arrest encephalopathy makes weaning likelyhood even poorer - CXR suggested increasing pulmonary edema and will diuress prn (2) Altered mental status Current Visit: Yes Status: Acute Qualifiers: Altered mental status type: A Coma depth: C Coma timing: C Plan to address problem: - likely anoxic encephalopathy at this point - no active grand-mal seizures - seen by neurology and will follow their recommendations - reviewed EEG and MRI reports and appears overall prognosis guarded at best (3) LUCY (acute kidney injury) Current Visit: Yes Status: Acute Plan to address problem: - resolved - following I's & O's - short course of lasix re: pulmonary edema - replace potassium (4) DKA (diabetic ketoacidoses) Current Visit: Yes Status: Acute Qualifiers: Diabetes mellitus type: D Diabetes mellitus complication detail: D Plan to address problem: - resolved - continue SSI - continue levemir at 10u sq daily (5) Sepsis Current Visit: No Status: Acute Qualifiers: Sepsis type: S Plan to address problem: - complete anti-infectives per ID recs - follow clinically - trend lactate and CRP prn (6) Emesis Current Visit: Yes Status: Acute Qualifiers: Vomiting type: V Vomiting Intractability: V Nausea presence: N Plan to address problem: - continue increased reglan dose - reduced fentanyl dose and using other sedatives/anxiolytics (re: opiates and G.I. motility) - continue aspiration precautions - GI input appreciated - improved (7) Discharge planning issues Current Visit: No Status: Acute Plan to address problem: - cardiac arrest and potential anoxic encephalopathy makes prognosis more guarded now - LTAC evaluation ongoing ...for now remains critically ill on life sustaining treatments including MVS and at high risk for further deterioration including ...30'' CCT Subjective Date of service: 11/21/16 Principal diagnosis: respiratory failure on mechanical ventilatory support, DKA Interval history: Seen and examined at bedside; 24 hour events reviewed; nursing and respiratory care staff consulted; no adverse overnight events reported to me; AMS is persistent; still not tolerating weaning trials well; no emesis or overt aspiration and no gross bleeding Objective Vital Signs - 12hr 11/21/16 11/21/16 11/21/16 00:30 00:31 00:32 Temperature Pulse Rate 140 H 140 H Pulse Rate [ From Monitor] Respiratory 21 29 H Rate Blood Pressure 135/82 139/79 O2 Sat by Pulse 100 Oximetry O2 Sat by Pulse Oximetry [ Assessment] 11/21/16 11/21/16 11/21/16 00:47 01:00 01:30 Temperature Pulse Rate 102 H 104 H 92 H Pulse Rate [ From Monitor] Respiratory 25 H 21 Rate Blood Pressure 142/74 142/74 120/62 O2 Sat by Pulse 100 100 100 Oximetry O2 Sat by Pulse Oximetry [ Assessment] 11/21/16 11/21/16 11/21/16 02:00 02:30 03:00 Temperature Pulse Rate 92 H 93 H 104 H Pulse Rate [ From Monitor] Respiratory 25 H 20 42 H Rate Blood Pressure 122/68 123/64 123/64 O2 Sat by Pulse 99 98 Oximetry O2 Sat by Pulse Oximetry [ Assessment] 11/21/16 11/21/16 11/21/16 03:16 03:30 04:00 Temperature 100.0 F H Pulse Rate 98 H 97 H Pulse Rate [ 99 H From Monitor] Respiratory 39 H 30 H 37 H Rate Blood Pressure 122/69 131/72 O2 Sat by Pulse 100 100 Oximetry O2 Sat by Pulse Oximetry [ Assessment] 11/21/16 11/21/16 11/21/16 04:30 05:00 05:30 Temperature Pulse Rate 100 H 101 H 98 H Pulse Rate [ From Monitor] Respiratory 37 H 21 33 H Rate Blood Pressure 137/67 136/68 131/72 O2 Sat by Pulse 100 100 100 Oximetry O2 Sat by Pulse Oximetry [ Assessment] 11/21/16 11/21/16 11/21/16 06:00 06:01 06:30 Temperature Pulse Rate 92 H 92 H 91 H Pulse Rate [ From Monitor] Respiratory 17 34 H Rate Blood Pressure 125/67 131/72 128/75 O2 Sat by Pulse 100 100 Oximetry O2 Sat by Pulse Oximetry [ Assessment] 11/21/16 11/21/16 11/21/16 07:00 07:30 08:00 Temperature 98.6 F Pulse Rate 94 H 95 H 99 H Pulse Rate [ 99 H From Monitor] Respiratory 27 H 35 H 41 H Rate Blood Pressure 134/70 135/76 147/82 O2 Sat by Pulse 100 100 100 Oximetry O2 Sat by Pulse Oximetry [ Assessment] 11/21/16 11/21/16 11/21/16 08:30 08:35 09:00 Temperature Pulse Rate 99 H 99 H Pulse Rate [ From Monitor] Respiratory 32 H 19 Rate Blood Pressure 137/70 142/69 O2 Sat by Pulse 100 100 Oximetry O2 Sat by Pulse 100 Oximetry [ Assessment] 11/21/16 11/21/16 11/21/16 09:30 10:00 10:30 Temperature Pulse Rate 101 H 101 H 102 H Pulse Rate [ From Monitor] Respiratory 21 29 H 18 Rate Blood Pressure 143/70 141/79 145/74 O2 Sat by Pulse 100 100 100 Oximetry O2 Sat by Pulse Oximetry [ Assessment] 11/21/16 11:00 Temperature Pulse Rate 103 H Pulse Rate [ From Monitor] Respiratory 27 H Rate Blood Pressure 144/74 O2 Sat by Pulse 100 Oximetry O2 Sat by Pulse Oximetry [ Assessment] Constitutional: other (Patient S/P CPR. Patient likely has anoxic encephalopathy ) Eyes: non-icteric ENT: oropharynx moist Neck: supple, no lymphadenopathy Effort: mildly labored Ascultation: Bilateral: diminished breath sounds, rales Cardiovascular: regular rate and rhythm, other (tachycardia) Gastrointestinal: normoactive bowel sounds, soft, non-tender, non-distended Integumentary: normal Extremities: no cyanosis, no edema, no ischemia or petechiae, other (s/p right BKA) Neurologic: unable to assess, other (encephalopathic) Psychiatric: other (encephalopathic) CBC and BMP: 11/23/16 08:20 11/22/16 11:50 ABG, PT/INR, D-dimer: ABG POC ABG pH 7.434 (7.35-7.45) 11/18/16 09:17 POC ABG pCO2 24.3 (35-45) L 11/18/16 09:17 POC ABG pO2 79 (80-105) L 11/18/16 09:17 POC ABG HCO3 16.3 11/18/16 09:17 POC ABG Total CO2 17 11/18/16 09:17 POC ABG O2 Sat 96 11/18/16 09:17 PT/INR, D-dimer PT 20.1 Sec. (12.2-14.9) H 11/18/16 05:45 INR 1.72 (0.87-1.13) H 11/18/16 05:45 Abnormal lab findings: Abnormal Labs 10/13/16 10/13/16 10/13/16 06:38 06:38 07:23 WBC RBC Hgb Hct MCV RDW Plt Count Lymph % (Auto) [place] % (Auto) [place] # Seg Neutrophils % Seg Neuts % (Manual) Lymphocytes % (Manual) Monocytes % (Manual) Basophils % (Manual) Nucleated RBC % Seg Neutrophils # Seg Neutrophils # Man Lymphocytes # (Manual) Monocytes # (Manual) Eosinophils # (Manual) Basophils # (Manual) PT INR APTT Heparin Anti-Xa Level POC ABG pH POC ABG pCO2 POC ABG pO2 Sodium Potassium 6.2 H* Chloride Carbon Dioxide 8 L* BUN 85 H Creatinine 2.8 H Glucose 602 H* POC Glucose 495 H Calcium 7.9 L Phosphorus 6.9 H D Magnesium 3.0 H AST Alkaline Phosphatase C-Reactive Protein Total Protein Albumin Lipase Vitamin B12 TSH Urine WBC (Auto) Urine Chloride Urine Total Protein Vancomycin Trough Crossmatch 10/13/16 10/13/16 10/13/16 08:49 08:55 10:12 WBC RBC Hgb Hct MCV RDW Plt Count Lymph % (Auto) [place] % (Auto) [place] # Seg Neutrophils % Seg Neuts % (Manual) Lymphocytes % (Manual) Monocytes % (Manual) Basophils % (Manual) Nucleated RBC % Seg Neutrophils # Seg Neutrophils # Man Lymphocytes # (Manual) Monocytes # (Manual) Eosinophils # (Manual) Basophils # (Manual) PT INR APTT Heparin Anti-Xa Level POC ABG pH POC ABG pCO2 POC ABG pO2 Sodium Potassium 5.6 H Chloride Carbon Dioxide 11 L BUN 77 H Creatinine 2.7 H Glucose 457 H POC Glucose > 500 H 424 H Calcium 8.0 L Phosphorus Magnesium AST Alkaline Phosphatase C-Reactive Protein Total Protein Albumin Lipase Vitamin B12 TSH Urine WBC (Auto) Urine Chloride Urine Total Protein Vancomycin Trough Crossmatch 10/13/16 10/13/16 10/13/16 10:44 11:22 12:20 WBC RBC Hgb Hct MCV RDW Plt Count Lymph % (Auto) [place] % (Auto) [place] # Seg Neutrophils % Seg Neuts % (Manual) Lymphocytes % (Manual) Monocytes % (Manual) Basophils % (Manual) Nucleated RBC % Seg Neutrophils # Seg Neutrophils # Man Lymphocytes # (Manual) Monocytes # (Manual) Eosinophils # (Manual) Basophils # (Manual) PT INR APTT Heparin Anti-Xa Level POC ABG pH POC ABG pCO2 POC ABG pO2 Sodium Potassium 5.4 H Chloride Carbon Dioxide 14 L BUN 72 H Creatinine 2.6 H Glucose 383 H POC Glucose 391 H 313 H Calcium 8.2 L Phosphorus Magnesium AST Alkaline Phosphatase C-Reactive Protein Total Protein Albumin Lipase Vitamin B12 TSH Urine WBC (Auto) Urine Chloride Urine Total Protein Vancomycin Trough Crossmatch 10/13/16 10/13/16 10/13/16 13:32 14:44 15:57 WBC RBC Hgb Hct MCV RDW Plt Count Lymph % (Auto) [place] % (Auto) [place] # Seg Neutrophils % Seg Neuts % (Manual) Lymphocytes % (Manual) Monocytes % (Manual) Basophils % (Manual) Nucleated RBC % Seg Neutrophils # Seg Neutrophils # Man Lymphocytes # (Manual) Monocytes # (Manual) Eosinophils # (Manual) Basophils # (Manual) PT INR APTT Heparin Anti-Xa Level POC ABG pH POC ABG pCO2 POC ABG pO2 Sodium Potassium Chloride Carbon Dioxide BUN Creatinine Glucose POC Glucose 296 H 210 H 190 H Calcium Phosphorus Magnesium AST Alkaline Phosphatase C-Reactive Protein Total Protein Albumin Lipase Vitamin B12 TSH Urine WBC (Auto) Urine Chloride Urine Total Protein Vancomycin Trough Crossmatch 10/13/16 10/13/16 10/13/16 16:14 16:14 17:17 WBC RBC Hgb Hct MCV RDW Plt Count Lymph % (Auto) [place] % (Auto) [place] # Seg Neutrophils % Seg Neuts % (Manual) Lymphocytes % (Manual) Monocytes % (Manual) Basophils % (Manual) Nucleated RBC % Seg Neutrophils # Seg Neutrophils # Man Lymphocytes # (Manual) Monocytes # (Manual) Eosinophils # (Manual) Basophils # (Manual) PT INR APTT Heparin Anti-Xa Level POC ABG pH POC ABG pCO2 POC ABG pO2 Sodium Potassium Chloride Carbon Dioxide 17 L BUN 58 H Creatinine 1.8 H Glucose 172 H POC Glucose 193 H Calcium 7.7 L Phosphorus Magnesium AST Alkaline Phosphatase C-Reactive Protein 10.50 H Total Protein Albumin Lipase Vitamin B12 TSH Urine WBC (Auto) Urine Chloride Urine Total Protein Vancomycin Trough Crossmatch 10/13/16 10/13/16 10/13/16 17:55 18:32 19:41 WBC RBC Hgb Hct MCV RDW Plt Count Lymph % (Auto) [place] % (Auto) [place] # Seg Neutrophils % Seg Neuts % (Manual) Lymphocytes % (Manual) Monocytes % (Manual) Basophils % (Manual) Nucleated RBC % Seg Neutrophils # Seg Neutrophils # Man Lymphocytes # (Manual) Monocytes # (Manual) Eosinophils # (Manual) Basophils # (Manual) PT INR APTT Heparin Anti-Xa Level POC ABG pH POC ABG pCO2 30.6 L POC ABG pO2 218 H Sodium Potassium Chloride Carbon Dioxide BUN Creatinine Glucose POC Glucose 192 H 177 H Calcium Phosphorus Magnesium AST Alkaline Phosphatase C-Reactive Protein Total Protein Albumin Lipase Vitamin B12 TSH Urine WBC (Auto) Urine Chloride Urine Total Protein Vancomycin Trough Crossmatch 10/13/16 10/13/16 10/13/16 20:54 22:07 23:13 WBC RBC Hgb Hct MCV RDW Plt Count Lymph % (Auto) [place] % (Auto) [place] # Seg Neutrophils % Seg Neuts % (Manual) Lymphocytes % (Manual) Monocytes % (Manual) Basophils % (Manual) Nucleated RBC % Seg Neutrophils # Seg Neutrophils # Man Lymphocytes # (Manual) Monocytes # (Manual) Eosinophils # (Manual) Basophils # (Manual) PT INR APTT Heparin Anti-Xa Level POC ABG pH POC ABG pCO2 POC ABG pO2 Sodium Potassium Chloride Carbon Dioxide BUN Creatinine Glucose POC Glucose 178 H 160 H 168 H Calcium Phosphorus Magnesium AST Alkaline Phosphatase C-Reactive Protein Total Protein Albumin Lipase Vitamin B12 TSH Urine WBC (Auto) Urine Chloride Urine Total Protein Vancomycin Trough Crossmatch 10/13/16 10/13/16 10/14/16 23:25 Unknown 00:21 WBC RBC Hgb Hct MCV RDW Plt Count Lymph % (Auto) [place] % (Auto) [place] # Seg Neutrophils % Seg Neuts % (Manual) Lymphocytes % (Manual) Monocytes % (Manual) Basophils % (Manual) Nucleated RBC % Seg Neutrophils # Seg Neutrophils # Man Lymphocytes # (Manual) Monocytes # (Manual) Eosinophils # (Manual) Basophils # (Manual) PT INR APTT Heparin Anti-Xa Level POC ABG pH POC ABG pCO2 POC ABG pO2 Sodium 148 H Potassium Chloride 114.6 H Carbon Dioxide 17 L BUN 56 H Creatinine 1.6 H Glucose 151 H POC Glucose 171 H Calcium 7.8 L Phosphorus Magnesium AST Alkaline Phosphatase C-Reactive Protein Total Protein Albumin Lipase Vitamin B12 TSH Urine WBC (Auto) Urine Chloride 10.0 L Urine Total Protein < 4 L Vancomycin Trough Crossmatch 10/14/16 10/14/16 10/14/16 01:22 02:29 03:30 WBC RBC Hgb Hct MCV RDW Plt Count Lymph % (Auto) [place] % (Auto) [place] # Seg Neutrophils % Seg Neuts % (Manual) Lymphocytes % (Manual) Monocytes % (Manual) Basophils % (Manual) Nucleated RBC % Seg Neutrophils # Seg Neutrophils # Man Lymphocytes # (Manual) Monocytes # (Manual) Eosinophils # (Manual) Basophils # (Manual) PT INR APTT Heparin Anti-Xa Level POC ABG pH POC ABG pCO2 POC ABG pO2 Sodium Potassium Chloride Carbon Dioxide BUN Creatinine Glucose POC Glucose 144 H 136 H 143 H Calcium Phosphorus Magnesium AST Alkaline Phosphatase C-Reactive Protein Total Protein Albumin Lipase Vitamin B12 TSH Urine WBC (Auto) Urine Chloride Urine Total Protein Vancomycin Trough Crossmatch 10/14/16 10/14/16 10/14/16 04:28 05:16 05:44 WBC RBC Hgb Hct MCV RDW Plt Count Lymph % (Auto) [place] % (Auto) [place] # Seg Neutrophils % Seg Neuts % (Manual) Lymphocytes % (Manual) Monocytes % (Manual) Basophils % (Manual) Nucleated RBC % Seg Neutrophils # Seg Neutrophils # Man Lymphocytes # (Manual) Monocytes # (Manual) Eosinophils # (Manual) Basophils # (Manual) PT INR APTT Heparin Anti-Xa Level POC ABG pH POC ABG pCO2 28.2 L POC ABG pO2 125 H Sodium Potassium Chloride Carbon Dioxide BUN Creatinine Glucose POC Glucose 133 H 160 H Calcium Phosphorus Magnesium AST Alkaline Phosphatase C-Reactive Protein Total Protein Albumin Lipase Vitamin B12 TSH Urine WBC (Auto) Urine Chloride Urine Total Protein Vancomycin Trough Crossmatch 10/14/16 10/14/16 10/14/16 06:12 06:45 07:03 WBC RBC Hgb Hct MCV RDW Plt Count Lymph % (Auto) [place] % (Auto) [place] # Seg Neutrophils % Seg Neuts % (Manual) Lymphocytes % (Manual) Monocytes % (Manual) Basophils % (Manual) Nucleated RBC % Seg Neutrophils # Seg Neutrophils # Man Lymphocytes # (Manual) Monocytes # (Manual) Eosinophils # (Manual) Basophils # (Manual) PT INR APTT Heparin Anti-Xa Level POC ABG pH POC ABG pCO2 POC ABG pO2 Sodium 149 H Potassium Chloride 115.4 H Carbon Dioxide 17 L BUN 45 H Creatinine 1.5 H Glucose 139 H POC Glucose 149 H Calcium 7.4 L Phosphorus 1.0 L D Magnesium AST Alkaline Phosphatase C-Reactive Protein Total Protein Albumin Lipase Vitamin B12 TSH Urine WBC (Auto) Urine Chloride Urine Total Protein Vancomycin Trough Crossmatch 10/14/16 10/14/16 10/14/16 07:03 08:02 09:16 WBC RBC Hgb Hct MCV RDW Plt Count Lymph % (Auto) [place] % (Auto) [place] # Seg Neutrophils % Seg Neuts % (Manual) Lymphocytes % (Manual) Monocytes % (Manual) Basophils % (Manual) Nucleated RBC % Seg Neutrophils # Seg Neutrophils # Man Lymphocytes # (Manual) Monocytes # (Manual) Eosinophils # (Manual) Basophils # (Manual) PT INR APTT Heparin Anti-Xa Level POC ABG pH POC ABG pCO2 POC ABG pO2 Sodium Potassium Chloride Carbon Dioxide BUN Creatinine Glucose POC Glucose 156 H 158 H Calcium Phosphorus Magnesium AST Alkaline Phosphatase C-Reactive Protein Total Protein Albumin Lipase 738 H Vitamin B12 TSH Urine WBC (Auto) Urine Chloride Urine Total Protein Vancomycin Trough Crossmatch 10/14/16 10/14/16 10/14/16 10:26 11:03 11:57 WBC RBC Hgb Hct MCV RDW Plt Count Lymph % (Auto) [place] % (Auto) [place] # Seg Neutrophils % Seg Neuts % (Manual) Lymphocytes % (Manual) Monocytes % (Manual) Basophils % (Manual) Nucleated RBC % Seg Neutrophils # Seg Neutrophils # Man Lymphocytes # (Manual) Monocytes # (Manual) Eosinophils # (Manual) Basophils # (Manual) PT INR APTT Heparin Anti-Xa Level POC ABG pH 7.198 L POC ABG pCO2 47.5 H POC ABG pO2 Sodium Potassium Chloride Carbon Dioxide BUN Creatinine Glucose POC Glucose 174 H 189 H Calcium Phosphorus Magnesium AST Alkaline Phosphatase C-Reactive Protein Total Protein Albumin Lipase Vitamin B12 TSH Urine WBC (Auto) Urine Chloride Urine Total Protein Vancomycin Trough Crossmatch 10/14/16 10/14/16 10/14/16 12:02 12:02 13:11 WBC 13.4 H RBC 3.60 L Hgb Hct MCV 98 H D RDW 13.1 L Plt Count Lymph % (Auto) [place] % (Auto) [place] # Seg Neutrophils % Seg Neuts % (Manual) Lymphocytes % (Manual) Monocytes % (Manual) Basophils % (Manual) Nucleated RBC % Seg Neutrophils # Seg Neutrophils # Man Lymphocytes # (Manual) Monocytes # (Manual) Eosinophils # (Manual) Basophils # (Manual) PT INR APTT Heparin Anti-Xa Level POC ABG pH POC ABG pCO2 POC ABG pO2 Sodium Potassium Chloride 110.7 H Carbon Dioxide 19 L BUN 38 H Creatinine 1.4 H Glucose 182 H POC Glucose 173 H Calcium 7.5 L Phosphorus Magnesium AST Alkaline Phosphatase C-Reactive Protein Total Protein Albumin Lipase Vitamin B12 TSH Urine WBC (Auto) Urine Chloride Urine Total Protein Vancomycin Trough Crossmatch 10/14/16 10/14/16 10/14/16 14:24 15:31 16:36 WBC RBC Hgb Hct MCV RDW Plt Count Lymph % (Auto) [place] % (Auto) [place] # Seg Neutrophils % Seg Neuts % (Manual) Lymphocytes % (Manual) Monocytes % (Manual) Basophils % (Manual) Nucleated RBC % Seg Neutrophils # Seg Neutrophils # Man Lymphocytes # (Manual) Monocytes # (Manual) Eosinophils # (Manual) Basophils # (Manual) PT INR APTT Heparin Anti-Xa Level POC ABG pH POC ABG pCO2 POC ABG pO2 Sodium Potassium Chloride Carbon Dioxide BUN Creatinine Glucose POC Glucose 123 H 124 H 156 H Calcium Phosphorus Magnesium AST Alkaline Phosphatase C-Reactive Protein Total Protein Albumin Lipase Vitamin B12 TSH Urine WBC (Auto) Urine Chloride Urine Total Protein Vancomycin Trough Crossmatch 10/14/16 10/14/16 10/14/16 17:43 19:00 20:08 WBC RBC Hgb Hct MCV RDW Plt Count Lymph % (Auto) [place] % (Auto) [place] # Seg Neutrophils % Seg Neuts % (Manual) Lymphocytes % (Manual) Monocytes % (Manual) Basophils % (Manual) Nucleated RBC % Seg Neutrophils # Seg Neutrophils # Man Lymphocytes # (Manual) Monocytes # (Manual) Eosinophils # (Manual) Basophils # (Manual) PT INR APTT Heparin Anti-Xa Level POC ABG pH POC ABG pCO2 POC ABG pO2 Sodium Potassium Chloride Carbon Dioxide BUN Creatinine Glucose POC Glucose 154 H 123 H 138 H Calcium Phosphorus Magnesium AST Alkaline Phosphatase C-Reactive Protein Total Protein Albumin Lipase Vitamin B12 TSH Urine WBC (Auto) Urine Chloride Urine Total Protein Vancomycin Trough Crossmatch 10/14/16 10/14/16 10/14/16 21:17 22:25 23:37 WBC RBC Hgb Hct MCV RDW Plt Count Lymph % (Auto) [place] % (Auto) [place] # Seg Neutrophils % Seg Neuts % (Manual) Lymphocytes % (Manual) Monocytes % (Manual) Basophils % (Manual) Nucleated RBC % Seg Neutrophils # Seg Neutrophils # Man Lymphocytes # (Manual) Monocytes # (Manual) Eosinophils # (Manual) Basophils # (Manual) PT INR APTT Heparin Anti-Xa Level POC ABG pH POC ABG pCO2 POC ABG pO2 Sodium Potassium Chloride Carbon Dioxide BUN Creatinine Glucose POC Glucose 148 H 132 H 137 H Calcium Phosphorus Magnesium AST Alkaline Phosphatase C-Reactive Protein Total Protein Albumin Lipase Vitamin B12 TSH Urine WBC (Auto) Urine Chloride Urine Total Protein Vancomycin Trough Crossmatch 10/15/16 10/15/16 10/15/16 00:49 01:53 03:06 WBC RBC Hgb Hct MCV RDW Plt Count Lymph % (Auto) [place] % (Auto) [place] # Seg Neutrophils % Seg Neuts % (Manual) Lymphocytes % (Manual) Monocytes % (Manual) Basophils % (Manual) Nucleated RBC % Seg Neutrophils # Seg Neutrophils # Man Lymphocytes # (Manual) Monocytes # (Manual) Eosinophils # (Manual) Basophils # (Manual) PT INR APTT Heparin Anti-Xa Level POC ABG pH POC ABG pCO2 POC ABG pO2 Sodium Potassium Chloride Carbon Dioxide BUN Creatinine Glucose POC Glucose 132 H 134 H 134 H Calcium Phosphorus Magnesium AST Alkaline Phosphatase C-Reactive Protein Total Protein Albumin Lipase Vitamin B12 TSH Urine WBC (Auto) Urine Chloride Urine Total Protein Vancomycin Trough Crossmatch 10/15/16 10/15/16 10/15/16 04:40 04:46 06:21 WBC RBC Hgb Hct MCV RDW Plt Count Lymph % (Auto) [place] % (Auto) [place] # Seg Neutrophils % Seg Neuts % (Manual) Lymphocytes % (Manual) Monocytes % (Manual) Basophils % (Manual) Nucleated RBC % Seg Neutrophils # Seg Neutrophils # Man Lymphocytes # (Manual) Monocytes # (Manual) Eosinophils # (Manual) Basophils # (Manual) PT INR APTT Heparin Anti-Xa Level POC ABG pH POC ABG pCO2 30.7 L POC ABG pO2 108 H Sodium Potassium Chloride 109.0 H Carbon Dioxide 17 L BUN 27 H Creatinine Glucose 124 H POC Glucose 160 H Calcium 7.5 L Phosphorus Magnesium AST 79 H Alkaline Phosphatase C-Reactive Protein Total Protein 5.5 L Albumin 3.0 L Lipase Vitamin B12 TSH Urine WBC (Auto) Urine Chloride Urine Total Protein Vancomycin Trough Crossmatch 10/15/16 10/15/16 10/15/16 07:12 08:01 09:03 WBC RBC Hgb Hct MCV RDW Plt Count Lymph % (Auto) [place] % (Auto) [place] # Seg Neutrophils % Seg Neuts % (Manual) Lymphocytes % (Manual) Monocytes % (Manual) Basophils % (Manual) Nucleated RBC % Seg Neutrophils # Seg Neutrophils # Man Lymphocytes # (Manual) Monocytes # (Manual) Eosinophils # (Manual) Basophils # (Manual) PT INR APTT Heparin Anti-Xa Level POC ABG pH POC ABG pCO2 POC ABG pO2 Sodium Potassium Chloride Carbon Dioxide BUN Creatinine Glucose POC Glucose 179 H 187 H 165 H Calcium Phosphorus Magnesium AST Alkaline Phosphatase C-Reactive Protein Total Protein Albumin Lipase Vitamin B12 TSH Urine WBC (Auto) Urine Chloride Urine Total Protein Vancomycin Trough Crossmatch 10/15/16 10/15/16 10/15/16 10:06 10:06 10:07 WBC 12.1 H RBC 3.01 L Hgb 9.7 L Hct 29.6 L MCV 98 H RDW Plt Count 129 L Lymph % (Auto) [place] % (Auto) [place] # Seg Neutrophils % Seg Neuts % (Manual) Lymphocytes % (Manual) Monocytes % (Manual) Basophils % (Manual) Nucleated RBC % Seg Neutrophils # Seg Neutrophils # Man Lymphocytes # (Manual) Monocytes # (Manual) Eosinophils # (Manual) Basophils # (Manual) PT INR APTT Heparin Anti-Xa Level POC ABG pH POC ABG pCO2 POC ABG pO2 Sodium Potassium 3.2 L D Chloride 109.6 H Carbon Dioxide 18 L BUN 22 H Creatinine Glucose 127 H POC Glucose 147 H Calcium 7.0 L Phosphorus Magnesium AST Alkaline Phosphatase C-Reactive Protein Total Protein Albumin Lipase Vitamin B12 TSH Urine WBC (Auto) Urine Chloride Urine Total Protein Vancomycin Trough Crossmatch 10/15/16 10/15/16 10/15/16 11:05 11:06 11:57 WBC RBC Hgb Hct MCV RDW Plt Count Lymph % (Auto) [place] % (Auto) [place] # Seg Neutrophils % Seg Neuts % (Manual) Lymphocytes % (Manual) Monocytes % (Manual) Basophils % (Manual) Nucleated RBC % Seg Neutrophils # Seg Neutrophils # Man Lymphocytes # (Manual) Monocytes # (Manual) Eosinophils # (Manual) Basophils # (Manual) PT INR APTT Heparin Anti-Xa Level POC ABG pH 7.305 L POC ABG pCO2 POC ABG pO2 Sodium Potassium Chloride Carbon Dioxide BUN Creatinine Glucose POC Glucose 145 H Calcium Phosphorus Magnesium AST Alkaline Phosphatase C-Reactive Protein Total Protein Albumin Lipase Vitamin B12 TSH Urine WBC (Auto) 7.0 H Urine Chloride Urine Total Protein Vancomycin Trough Crossmatch 10/15/16 10/15/16 10/15/16 12:04 13:59 15:24 WBC RBC Hgb Hct MCV RDW Plt Count Lymph % (Auto) [place] % (Auto) [place] # Seg Neutrophils % Seg Neuts % (Manual) Lymphocytes % (Manual) Monocytes % (Manual) Basophils % (Manual) Nucleated RBC % Seg Neutrophils # Seg Neutrophils # Man Lymphocytes # (Manual) Monocytes # (Manual) Eosinophils # (Manual) Basophils # (Manual) PT INR APTT Heparin Anti-Xa Level POC ABG pH POC ABG pCO2 POC ABG pO2 Sodium Potassium Chloride Carbon Dioxide BUN Creatinine Glucose POC Glucose 123 H 147 H 153 H Calcium Phosphorus Magnesium AST Alkaline Phosphatase C-Reactive Protein Total Protein Albumin Lipase Vitamin B12 TSH Urine WBC (Auto) Urine Chloride Urine Total Protein Vancomycin Trough Crossmatch 10/15/16 10/15/16 10/15/16 16:30 17:34 18:30 WBC RBC Hgb Hct MCV RDW Plt Count Lymph % (Auto) [place] % (Auto) [place] # Seg Neutrophils % Seg Neuts % (Manual) Lymphocytes % (Manual) Monocytes % (Manual) Basophils % (Manual) Nucleated RBC % Seg Neutrophils # Seg Neutrophils # Man Lymphocytes # (Manual) Monocytes # (Manual) Eosinophils # (Manual) Basophils # (Manual) PT INR APTT Heparin Anti-Xa Level POC ABG pH POC ABG pCO2 POC ABG pO2 Sodium Potassium Chloride Carbon Dioxide BUN Creatinine Glucose POC Glucose 223 H 236 H 164 H Calcium Phosphorus Magnesium AST Alkaline Phosphatase C-Reactive Protein Total Protein Albumin Lipase Vitamin B12 TSH Urine WBC (Auto) Urine Chloride Urine Total Protein Vancomycin Trough Crossmatch 10/15/16 10/15/16 10/15/16 19:14 20:31 21:23 WBC RBC Hgb Hct MCV RDW Plt Count Lymph % (Auto) [place] % (Auto) [place] # Seg Neutrophils % Seg Neuts % (Manual) Lymphocytes % (Manual) Monocytes % (Manual) Basophils % (Manual) Nucleated RBC % Seg Neutrophils # Seg Neutrophils # Man Lymphocytes # (Manual) Monocytes # (Manual) Eosinophils # (Manual) Basophils # (Manual) PT INR APTT Heparin Anti-Xa Level POC ABG pH POC ABG pCO2 POC ABG pO2 Sodium Potassium Chloride Carbon Dioxide BUN Creatinine Glucose POC Glucose 138 H 158 H 158 H Calcium Phosphorus Magnesium AST Alkaline Phosphatase C-Reactive Protein Total Protein Albumin Lipase Vitamin B12 TSH Urine WBC (Auto) Urine Chloride Urine Total Protein Vancomycin Trough Crossmatch 10/15/16 10/15/16 10/16/16 22:04 22:57 00:11 WBC RBC Hgb Hct MCV RDW Plt Count Lymph % (Auto) [place] % (Auto) [place] # Seg Neutrophils % Seg Neuts % (Manual) Lymphocytes % (Manual) Monocytes % (Manual) Basophils % (Manual) Nucleated RBC % Seg Neutrophils # Seg Neutrophils # Man Lymphocytes # (Manual) Monocytes # (Manual) Eosinophils # (Manual) Basophils # (Manual) PT INR APTT Heparin Anti-Xa Level POC ABG pH POC ABG pCO2 POC ABG pO2 Sodium Potassium Chloride Carbon Dioxide BUN Creatinine Glucose POC Glucose 168 H 213 H 166 H Calcium Phosphorus Magnesium AST Alkaline Phosphatase C-Reactive Protein Total Protein Albumin Lipase Vitamin B12 TSH Urine WBC (Auto) Urine Chloride Urine Total Protein Vancomycin Trough Crossmatch 10/16/16 10/16/16 10/16/16 01:16 02:32 03:38 WBC RBC Hgb Hct MCV RDW Plt Count Lymph % (Auto) [place] % (Auto) [place] # Seg Neutrophils % Seg Neuts % (Manual) Lymphocytes % (Manual) Monocytes % (Manual) Basophils % (Manual) Nucleated RBC % Seg Neutrophils # Seg Neutrophils # Man Lymphocytes # (Manual) Monocytes # (Manual) Eosinophils # (Manual) Basophils # (Manual) PT INR APTT Heparin Anti-Xa Level POC ABG pH POC ABG pCO2 POC ABG pO2 Sodium Potassium Chloride Carbon Dioxide BUN Creatinine Glucose POC Glucose 171 H 164 H 147 H Calcium Phosphorus Magnesium AST Alkaline Phosphatase C-Reactive Protein Total Protein Albumin Lipase Vitamin B12 TSH Urine WBC (Auto) Urine Chloride Urine Total Protein Vancomycin Trough Crossmatch 10/16/16 10/16/16 10/16/16 04:14 04:14 04:49 WBC RBC Hgb Hct MCV RDW Plt Count Lymph % (Auto) [place] % (Auto) [place] # Seg Neutrophils % Seg Neuts % (Manual) Lymphocytes % (Manual) Monocytes % (Manual) Basophils % (Manual) Nucleated RBC % Seg Neutrophils # Seg Neutrophils # Man Lymphocytes # (Manual) Monocytes # (Manual) Eosinophils # (Manual) Basophils # (Manual) PT INR APTT Heparin Anti-Xa Level POC ABG pH POC ABG pCO2 POC ABG pO2 Sodium 147 H Potassium Chloride 110.9 H Carbon Dioxide 19 L BUN Creatinine Glucose 139 H POC Glucose 144 H Calcium 7.3 L Phosphorus 2.3 L Magnesium AST Alkaline Phosphatase C-Reactive Protein Total Protein Albumin Lipase 143 H Vitamin B12 TSH Urine WBC (Auto) Urine Chloride Urine Total Protein Vancomycin Trough Crossmatch 10/16/16 10/16/16 10/16/16 05:03 05:41 05:58 WBC 16.5 H RBC 3.36 L Hgb Hct MCV 98 H RDW 13.1 L Plt Count Lymph % (Auto) 8.5 L [place] % (Auto) 7.6 H [place] # 1.3 H Seg Neutrophils % 83.3 H Seg Neuts % (Manual) Lymphocytes % (Manual) Monocytes % (Manual) Basophils % (Manual) Nucleated RBC % Seg Neutrophils # 13.8 H Seg Neutrophils # Man Lymphocytes # (Manual) Monocytes # (Manual) Eosinophils # (Manual) Basophils # (Manual) PT INR APTT Heparin Anti-Xa Level POC ABG pH POC ABG pCO2 30.7 L POC ABG pO2 128 H Sodium Potassium Chloride Carbon Dioxide BUN Creatinine Glucose POC Glucose 131 H Calcium Phosphorus Magnesium AST Alkaline Phosphatase C-Reactive Protein Total Protein Albumin Lipase Vitamin B12 TSH Urine WBC (Auto) Urine Chloride Urine Total Protein Vancomycin Trough Crossmatch 10/16/16 10/16/16 10/16/16 06:32 09:27 09:35 WBC RBC Hgb Hct MCV RDW Plt Count Lymph % (Auto) [place] % (Auto) [place] # Seg Neutrophils % Seg Neuts % (Manual) Lymphocytes % (Manual) Monocytes % (Manual) Basophils % (Manual) Nucleated RBC % Seg Neutrophils # Seg Neutrophils # Man Lymphocytes # (Manual) Monocytes # (Manual) Eosinophils # (Manual) Basophils # (Manual) PT INR APTT Heparin Anti-Xa Level POC ABG pH POC ABG pCO2 32.8 L POC ABG pO2 137 H Sodium Potassium Chloride Carbon Dioxide BUN Creatinine Glucose POC Glucose 121 H 150 H Calcium Phosphorus Magnesium AST Alkaline Phosphatase C-Reactive Protein Total Protein Albumin Lipase Vitamin B12 TSH Urine WBC (Auto) Urine Chloride Urine Total Protein Vancomycin Trough Crossmatch 10/16/16 10/16/16 10/16/16 10:47 13:27 14:24 WBC RBC Hgb Hct MCV RDW Plt Count Lymph % (Auto) [place] % (Auto) [place] # Seg Neutrophils % Seg Neuts % (Manual) Lymphocytes % (Manual) Monocytes % (Manual) Basophils % (Manual) Nucleated RBC % Seg Neutrophils # Seg Neutrophils # Man Lymphocytes # (Manual) Monocytes # (Manual) Eosinophils # (Manual) Basophils # (Manual) PT INR APTT Heparin Anti-Xa Level POC ABG pH POC ABG pCO2 POC ABG pO2 Sodium Potassium Chloride Carbon Dioxide BUN Creatinine Glucose POC Glucose 184 H 171 H 174 H Calcium Phosphorus Magnesium AST Alkaline Phosphatase C-Reactive Protein Total Protein Albumin Lipase Vitamin B12 TSH Urine WBC (Auto) Urine Chloride Urine Total Protein Vancomycin Trough Crossmatch 10/16/16 10/16/16 10/16/16 15:48 16:26 18:17 WBC RBC Hgb Hct MCV RDW Plt Count Lymph % (Auto) [place] % (Auto) [place] # Seg Neutrophils % Seg Neuts % (Manual) Lymphocytes % (Manual) Monocytes % (Manual) Basophils % (Manual) Nucleated RBC % Seg Neutrophils # Seg Neutrophils # Man Lymphocytes # (Manual) Monocytes # (Manual) Eosinophils # (Manual) Basophils # (Manual) PT INR APTT Heparin Anti-Xa Level POC ABG pH POC ABG pCO2 POC ABG pO2 Sodium Potassium Chloride Carbon Dioxide BUN Creatinine Glucose POC Glucose 205 H 204 H 234 H Calcium Phosphorus Magnesium AST Alkaline Phosphatase C-Reactive Protein Total Protein Albumin Lipase Vitamin B12 TSH Urine WBC (Auto) Urine Chloride Urine Total Protein Vancomycin Trough Crossmatch 10/16/16 10/16/16 10/16/16 19:40 20:33 21:36 WBC RBC Hgb Hct MCV RDW Plt Count Lymph % (Auto) [place] % (Auto) [place] # Seg Neutrophils % Seg Neuts % (Manual) Lymphocytes % (Manual) Monocytes % (Manual) Basophils % (Manual) Nucleated RBC % Seg Neutrophils # Seg Neutrophils # Man Lymphocytes # (Manual) Monocytes # (Manual) Eosinophils # (Manual) Basophils # (Manual) PT INR APTT Heparin Anti-Xa Level POC ABG pH POC ABG pCO2 POC ABG pO2 Sodium Potassium Chloride Carbon Dioxide BUN Creatinine Glucose POC Glucose 167 H 153 H 158 H Calcium Phosphorus Magnesium AST Alkaline Phosphatase C-Reactive Protein Total Protein Albumin Lipase Vitamin B12 TSH Urine WBC (Auto) Urine Chloride Urine Total Protein Vancomycin Trough Crossmatch 10/16/16 10/16/16 10/17/16 22:54 23:48 00:47 WBC RBC Hgb Hct MCV RDW Plt Count Lymph % (Auto) [place] % (Auto) [place] # Seg Neutrophils % Seg Neuts % (Manual) Lymphocytes % (Manual) Monocytes % (Manual) Basophils % (Manual) Nucleated RBC % Seg Neutrophils # Seg Neutrophils # Man Lymphocytes # (Manual) Monocytes # (Manual) Eosinophils # (Manual) Basophils # (Manual) PT INR APTT Heparin Anti-Xa Level POC ABG pH POC ABG pCO2 POC ABG pO2 Sodium Potassium Chloride Carbon Dioxide BUN Creatinine Glucose POC Glucose 180 H 207 H 196 H Calcium Phosphorus Magnesium AST Alkaline Phosphatase C-Reactive Protein Total Protein Albumin Lipase Vitamin B12 TSH Urine WBC (Auto) Urine Chloride Urine Total Protein Vancomycin Trough Crossmatch 10/17/16 10/17/16 10/17/16 01:57 02:49 03:50 WBC RBC Hgb Hct MCV RDW Plt Count Lymph % (Auto) [place] % (Auto) [place] # Seg Neutrophils % Seg Neuts % (Manual) Lymphocytes % (Manual) Monocytes % (Manual) Basophils % (Manual) Nucleated RBC % Seg Neutrophils # Seg Neutrophils # Man Lymphocytes # (Manual) Monocytes # (Manual) Eosinophils # (Manual) Basophils # (Manual) PT INR APTT Heparin Anti-Xa Level POC ABG pH POC ABG pCO2 POC ABG pO2 Sodium Potassium Chloride Carbon Dioxide BUN Creatinine Glucose POC Glucose 180 H 151 H 106 H Calcium Phosphorus Magnesium AST Alkaline Phosphatase C-Reactive Protein Total Protein Albumin Lipase Vitamin B12 TSH Urine WBC (Auto) Urine Chloride Urine Total Protein Vancomycin Trough Crossmatch 10/17/16 10/17/16 10/17/16 04:59 06:03 06:35 WBC RBC Hgb Hct MCV RDW Plt Count Lymph % (Auto) [place] % (Auto) [place] # Seg Neutrophils % Seg Neuts % (Manual) Lymphocytes % (Manual) Monocytes % (Manual) Basophils % (Manual) Nucleated RBC % Seg Neutrophils # Seg Neutrophils # Man Lymphocytes # (Manual) Monocytes # (Manual) Eosinophils # (Manual) Basophils # (Manual) PT INR APTT Heparin Anti-Xa Level POC ABG pH 7.453 H POC ABG pCO2 30.1 L POC ABG pO2 111 H Sodium Potassium Chloride Carbon Dioxide BUN Creatinine Glucose POC Glucose 145 H 157 H Calcium Phosphorus Magnesium AST Alkaline Phosphatase C-Reactive Protein Total Protein Albumin Lipase Vitamin B12 TSH Urine WBC (Auto) Urine Chloride Urine Total Protein Vancomycin Trough Crossmatch 10/17/16 10/17/16 10/17/16 07:08 07:11 08:01 WBC RBC Hgb Hct MCV RDW Plt Count Lymph % (Auto) [place] % (Auto) [place] # Seg Neutrophils % Seg Neuts % (Manual) Lymphocytes % (Manual) Monocytes % (Manual) Basophils % (Manual) Nucleated RBC % Seg Neutrophils # Seg Neutrophils # Man Lymphocytes # (Manual) Monocytes # (Manual) Eosinophils # (Manual) Basophils # (Manual) PT INR APTT Heparin Anti-Xa Level POC ABG pH POC ABG pCO2 POC ABG pO2 Sodium 147 H Potassium Chloride 113.8 H Carbon Dioxide 19 L BUN Creatinine Glucose 136 H POC Glucose 136 H 152 H Calcium 7.7 L Phosphorus Magnesium AST Alkaline Phosphatase C-Reactive Protein Total Protein Albumin Lipase Vitamin B12 TSH Urine WBC (Auto) Urine Chloride Urine Total Protein Vancomycin Trough Crossmatch 10/17/16 10/17/16 10/17/16 08:23 09:17 09:53 WBC 18.1 H RBC 3.01 L Hgb 9.7 L Hct 29.4 L MCV 98 H RDW Plt Count 116 L Lymph % (Auto) [place] % (Auto) [place] # Seg Neutrophils % Seg Neuts % (Manual) 77.0 H Lymphocytes % (Manual) 4.0 L Monocytes % (Manual) 12.0 H Basophils % (Manual) Nucleated RBC % Seg Neutrophils # Seg Neutrophils # Man 13.9 H Lymphocytes # (Manual) 0.7 L Monocytes # (Manual) 2.2 H Eosinophils # (Manual) Basophils # (Manual) PT INR APTT Heparin Anti-Xa Level POC ABG pH POC ABG pCO2 POC ABG pO2 Sodium Potassium Chloride Carbon Dioxide BUN Creatinine Glucose POC Glucose 148 H 137 H Calcium Phosphorus Magnesium AST Alkaline Phosphatase C-Reactive Protein Total Protein Albumin Lipase Vitamin B12 TSH Urine WBC (Auto) Urine Chloride Urine Total Protein Vancomycin Trough Crossmatch 10/17/16 10/17/16 10/17/16 11:43 16:07 17:42 WBC RBC Hgb Hct MCV RDW Plt Count Lymph % (Auto) [place] % (Auto) [place] # Seg Neutrophils % Seg Neuts % (Manual) Lymphocytes % (Manual) Monocytes % (Manual) Basophils % (Manual) Nucleated RBC % Seg Neutrophils # Seg Neutrophils # Man Lymphocytes # (Manual) Monocytes # (Manual) Eosinophils # (Manual) Basophils # (Manual) PT 16.4 H INR 1.33 H APTT 38.8 H Heparin Anti-Xa Level POC ABG pH POC ABG pCO2 POC ABG pO2 Sodium Potassium Chloride Carbon Dioxide BUN Creatinine Glucose POC Glucose 179 H 153 H Calcium Phosphorus Magnesium AST Alkaline Phosphatase C-Reactive Protein Total Protein Albumin Lipase Vitamin B12 TSH Urine WBC (Auto) Urine Chloride Urine Total Protein Vancomycin Trough Crossmatch 10/17/16 10/18/16 10/18/16 22:54 04:37 05:39 WBC RBC Hgb Hct MCV RDW Plt Count Lymph % (Auto) [place] % (Auto) [place] # Seg Neutrophils % Seg Neuts % (Manual) Lymphocytes % (Manual) Monocytes % (Manual) Basophils % (Manual) Nucleated RBC % Seg Neutrophils # Seg Neutrophils # Man Lymphocytes # (Manual) Monocytes # (Manual) Eosinophils # (Manual) Basophils # (Manual) PT INR APTT Heparin Anti-Xa Level 0.27 L POC ABG pH 7.454 H POC ABG pCO2 30.8 L POC ABG pO2 115 H Sodium Potassium Chloride Carbon Dioxide BUN Creatinine Glucose POC Glucose 69 L Calcium Phosphorus Magnesium AST Alkaline Phosphatase C-Reactive Protein Total Protein Albumin Lipase Vitamin B12 TSH Urine WBC (Auto) Urine Chloride Urine Total Protein Vancomycin Trough Crossmatch 10/18/16 10/18/16 10/18/16 06:46 06:46 06:46 WBC 20.5 H RBC 2.62 L Hgb 8.4 L Hct 26.0 L MCV 100 H RDW Plt Count Lymph % (Auto) [place] % (Auto) [place] # Seg Neutrophils % Seg Neuts % (Manual) 75.0 H Lymphocytes % (Manual) 9.0 L Monocytes % (Manual) 14.0 H Basophils % (Manual) Nucleated RBC % Seg Neutrophils # Seg Neutrophils # Man 15.4 H Lymphocytes # (Manual) Monocytes # (Manual) 2.9 H Eosinophils # (Manual) Basophils # (Manual) PT INR APTT Heparin Anti-Xa Level POC ABG pH POC ABG pCO2 POC ABG pO2 Sodium Potassium Chloride 110.6 H Carbon Dioxide BUN Creatinine 1.3 H Glucose 153 H POC Glucose Calcium 8.0 L Phosphorus Magnesium 1.6 L AST Alkaline Phosphatase C-Reactive Protein Total Protein Albumin Lipase Vitamin B12 TSH Urine WBC (Auto) Urine Chloride Urine Total Protein Vancomycin Trough Crossmatch 10/18/16 10/18/16 10/18/16 07:30 11:37 17:51 WBC RBC Hgb Hct MCV RDW Plt Count Lymph % (Auto) [place] % (Auto) [place] # Seg Neutrophils % Seg Neuts % (Manual) Lymphocytes % (Manual) Monocytes % (Manual) Basophils % (Manual) Nucleated RBC % Seg Neutrophils # Seg Neutrophils # Man Lymphocytes # (Manual) Monocytes # (Manual) Eosinophils # (Manual) Basophils # (Manual) PT INR APTT Heparin Anti-Xa Level POC ABG pH POC ABG pCO2 POC ABG pO2 Sodium Potassium Chloride Carbon Dioxide BUN Creatinine Glucose POC Glucose 162 H 156 H 164 H Calcium Phosphorus Magnesium AST Alkaline Phosphatase C-Reactive Protein Total Protein Albumin Lipase Vitamin B12 TSH Urine WBC (Auto) Urine Chloride Urine Total Protein Vancomycin Trough Crossmatch 10/18/16 10/19/16 10/19/16 23:44 03:59 05:13 WBC 18.2 H RBC 2.76 L Hgb 9.0 L Hct 27.7 L MCV 100 H RDW Plt Count Lymph % (Auto) [place] % (Auto) [place] # Seg Neutrophils % Seg Neuts % (Manual) 76.0 H Lymphocytes % (Manual) 10.0 L Monocytes % (Manual) Basophils % (Manual) Nucleated RBC % Seg Neutrophils # Seg Neutrophils # Man 13.8 H Lymphocytes # (Manual) Monocytes # (Manual) Eosinophils # (Manual) Basophils # (Manual) PT INR APTT Heparin Anti-Xa Level POC ABG pH POC ABG pCO2 32.2 L POC ABG pO2 128 H Sodium Potassium Chloride Carbon Dioxide BUN Creatinine Glucose POC Glucose 278 H Calcium Phosphorus Magnesium AST Alkaline Phosphatase C-Reactive Protein Total Protein Albumin Lipase Vitamin B12 TSH Urine WBC (Auto) Urine Chloride Urine Total Protein Vancomycin Trough Crossmatch 10/19/16 10/19/16 10/19/16 06:01 06:30 12:20 WBC RBC Hgb Hct MCV RDW Plt Count Lymph % (Auto) [place] % (Auto) [place] # Seg Neutrophils % Seg Neuts % (Manual) Lymphocytes % (Manual) Monocytes % (Manual) Basophils % (Manual) Nucleated RBC % Seg Neutrophils # Seg Neutrophils # Man Lymphocytes # (Manual) Monocytes # (Manual) Eosinophils # (Manual) Basophils # (Manual) PT INR APTT Heparin Anti-Xa Level POC ABG pH POC ABG pCO2 POC ABG pO2 Sodium Potassium Chloride Carbon Dioxide 18 L BUN Creatinine 1.3 H Glucose 262 H POC Glucose 261 H 349 H Calcium 7.7 L Phosphorus 4.8 H D Magnesium AST Alkaline Phosphatase C-Reactive Protein Total Protein Albumin Lipase Vitamin B12 TSH Urine WBC (Auto) Urine Chloride Urine Total Protein Vancomycin Trough Crossmatch 10/19/16 10/20/16 10/20/16 16:48 00:17 05:20 WBC 22.5 H RBC 2.80 L Hgb 8.9 L Hct 28.3 L MCV 101 H RDW Plt Count Lymph % (Auto) [place] % (Auto) [place] # Seg Neutrophils % Seg Neuts % (Manual) Lymphocytes % (Manual) 10.0 L Monocytes % (Manual) Basophils % (Manual) Nucleated RBC % Seg Neutrophils # Seg Neutrophils # Man 13.3 H Lymphocytes # (Manual) Monocytes # (Manual) 1.1 H Eosinophils # (Manual) 0.7 H Basophils # (Manual) PT INR APTT Heparin Anti-Xa Level POC ABG pH POC ABG pCO2 POC ABG pO2 Sodium Potassium Chloride Carbon Dioxide BUN Creatinine Glucose POC Glucose 248 H 346 H Calcium Phosphorus Magnesium AST Alkaline Phosphatase C-Reactive Protein Total Protein Albumin Lipase Vitamin B12 TSH Urine WBC (Auto) Urine Chloride Urine Total Protein Vancomycin Trough Crossmatch 10/20/16 10/20/16 10/20/16 05:20 05:20 06:05 WBC RBC Hgb Hct MCV RDW Plt Count Lymph % (Auto) [place] % (Auto) [place] # Seg Neutrophils % Seg Neuts % (Manual) Lymphocytes % (Manual) Monocytes % (Manual) Basophils % (Manual) Nucleated RBC % Seg Neutrophils # Seg Neutrophils # Man Lymphocytes # (Manual) Monocytes # (Manual) Eosinophils # (Manual) Basophils # (Manual) PT INR APTT Heparin Anti-Xa Level 0.20 L POC ABG pH POC ABG pCO2 POC ABG pO2 Sodium Potassium Chloride Carbon Dioxide BUN 20 H Creatinine Glucose 374 H POC Glucose 337 H Calcium 8.3 L Phosphorus Magnesium AST Alkaline Phosphatase C-Reactive Protein Total Protein Albumin Lipase Vitamin B12 TSH Urine WBC (Auto) Urine Chloride Urine Total Protein Vancomycin Trough Crossmatch 10/20/16 10/20/16 10/20/16 11:49 13:59 17:56 WBC RBC Hgb Hct MCV RDW Plt Count Lymph % (Auto) [place] % (Auto) [place] # Seg Neutrophils % Seg Neuts % (Manual) Lymphocytes % (Manual) Monocytes % (Manual) Basophils % (Manual) Nucleated RBC % Seg Neutrophils # Seg Neutrophils # Man Lymphocytes # (Manual) Monocytes # (Manual) Eosinophils # (Manual) Basophils # (Manual) PT INR APTT Heparin Anti-Xa Level 2.00 H POC ABG pH POC ABG pCO2 POC ABG pO2 Sodium Potassium Chloride Carbon Dioxide BUN Creatinine Glucose POC Glucose 305 H 362 H Calcium Phosphorus Magnesium AST Alkaline Phosphatase C-Reactive Protein Total Protein Albumin Lipase Vitamin B12 TSH Urine WBC (Auto) Urine Chloride Urine Total Protein Vancomycin Trough Crossmatch 10/20/16 10/21/16 10/21/16 23:52 05:00 05:49 WBC 22.9 H RBC 2.49 L Hgb 7.7 L Hct 25.6 L MCV 103 H RDW Plt Count Lymph % (Auto) [place] % (Auto) [place] # Seg Neutrophils % Seg Neuts % (Manual) 94.0 H Lymphocytes % (Manual) 1.0 L Monocytes % (Manual) Basophils % (Manual) Nucleated RBC % Seg Neutrophils # Seg Neutrophils # Man 21.5 H Lymphocytes # (Manual) 0.2 L Monocytes # (Manual) 1.1 H Eosinophils # (Manual) Basophils # (Manual) PT INR APTT Heparin Anti-Xa Level POC ABG pH POC ABG pCO2 POC ABG pO2 Sodium Potassium Chloride Carbon Dioxide BUN Creatinine Glucose POC Glucose 252 H 180 H Calcium Phosphorus Magnesium AST Alkaline Phosphatase C-Reactive Protein Total Protein Albumin Lipase Vitamin B12 TSH Urine WBC (Auto) Urine Chloride Urine Total Protein Vancomycin Trough Crossmatch 10/21/16 10/21/16 10/21/16 11:47 11:49 14:10 WBC RBC Hgb Hct MCV RDW Plt Count Lymph % (Auto) [place] % (Auto) [place] # Seg Neutrophils % Seg Neuts % (Manual) Lymphocytes % (Manual) Monocytes % (Manual) Basophils % (Manual) Nucleated RBC % Seg Neutrophils # Seg Neutrophils # Man Lymphocytes # (Manual) Monocytes # (Manual) Eosinophils # (Manual) Basophils # (Manual) PT INR APTT Heparin Anti-Xa Level POC ABG pH POC ABG pCO2 POC ABG pO2 Sodium Potassium Chloride Carbon Dioxide BUN Creatinine Glucose POC Glucose 50 L 56 L 140 H Calcium Phosphorus Magnesium AST Alkaline Phosphatase C-Reactive Protein Total Protein Albumin Lipase Vitamin B12 TSH Urine WBC (Auto) Urine Chloride Urine Total Protein Vancomycin Trough Crossmatch 10/21/16 10/21/16 10/22/16 18:24 Unknown 00:07 WBC RBC Hgb Hct MCV RDW Plt Count Lymph % (Auto) [place] % (Auto) [place] # Seg Neutrophils % Seg Neuts % (Manual) Lymphocytes % (Manual) Monocytes % (Manual) Basophils % (Manual) Nucleated RBC % Seg Neutrophils # Seg Neutrophils # Man Lymphocytes # (Manual) Monocytes # (Manual) Eosinophils # (Manual) Basophils # (Manual) PT INR APTT Heparin Anti-Xa Level POC ABG pH POC ABG pCO2 POC ABG pO2 Sodium 150 H Potassium 3.1 L Chloride 112.4 H Carbon Dioxide BUN 25 H Creatinine 1.4 H Glucose POC Glucose 175 H 218 H Calcium 8.0 L Phosphorus Magnesium AST Alkaline Phosphatase C-Reactive Protein Total Protein Albumin Lipase Vitamin B12 TSH Urine WBC (Auto) Urine Chloride Urine Total Protein Vancomycin Trough Crossmatch 10/22/16 10/22/16 10/22/16 04:20 04:20 10:25 WBC 20.8 H RBC 2.37 L Hgb 7.5 L Hct 23.9 L MCV 101 H RDW Plt Count Lymph % (Auto) [place] % (Auto) [place] # Seg Neutrophils % Seg Neuts % (Manual) 89.0 H Lymphocytes % (Manual) 7.0 L Monocytes % (Manual) Basophils % (Manual) Nucleated RBC % Seg Neutrophils # Seg Neutrophils # Man 18.5 H Lymphocytes # (Manual) Monocytes # (Manual) Eosinophils # (Manual) Basophils # (Manual) 0.2 H PT INR APTT Heparin Anti-Xa Level POC ABG pH POC ABG pCO2 POC ABG pO2 Sodium 148 H Potassium 2.9 L* Chloride 109.4 H Carbon Dioxide BUN 26 H Creatinine Glucose 140 H POC Glucose Calcium 7.5 L Phosphorus Magnesium AST Alkaline Phosphatase C-Reactive Protein Total Protein Albumin Lipase Vitamin B12 976.8 H TSH Urine WBC (Auto) Urine Chloride Urine Total Protein Vancomycin Trough Crossmatch 10/22/16 10/22/16 10/22/16 10:25 14:50 18:16 WBC RBC Hgb Hct MCV RDW Plt Count Lymph % (Auto) [place] % (Auto) [place] # Seg Neutrophils % Seg Neuts % (Manual) Lymphocytes % (Manual) Monocytes % (Manual) Basophils % (Manual) Nucleated RBC % Seg Neutrophils # Seg Neutrophils # Man Lymphocytes # (Manual) Monocytes # (Manual) Eosinophils # (Manual) Basophils # (Manual) PT INR APTT Heparin Anti-Xa Level POC ABG pH POC ABG pCO2 POC ABG pO2 Sodium Potassium Chloride Carbon Dioxide BUN Creatinine Glucose POC Glucose 193 H Calcium Phosphorus Magnesium AST Alkaline Phosphatase C-Reactive Protein Total Protein Albumin Lipase Vitamin B12 TSH 0.143 L 0.162 L Urine WBC (Auto) Urine Chloride Urine Total Protein Vancomycin Trough Crossmatch 10/22/16 10/22/16 10/22/16 20:00 20:00 20:00 WBC 24.1 H RBC 2.58 L Hgb 8.2 L Hct 26.4 L MCV 102 H RDW Plt Count Lymph % (Auto) [place] % (Auto) [place] # Seg Neutrophils % Seg Neuts % (Manual) 74.0 H Lymphocytes % (Manual) 7.0 L Monocytes % (Manual) Basophils % (Manual) Nucleated RBC % Seg Neutrophils # Seg Neutrophils # Man 17.8 H Lymphocytes # (Manual) Monocytes # (Manual) Eosinophils # (Manual) Basophils # (Manual) PT INR APTT Heparin Anti-Xa Level 1.92 H POC ABG pH POC ABG pCO2 POC ABG pO2 Sodium Potassium Chloride Carbon Dioxide BUN Creatinine Glucose POC Glucose Calcium Phosphorus Magnesium AST Alkaline Phosphatase C-Reactive Protein Total Protein Albumin Lipase Vitamin B12 TSH Urine WBC (Auto) Urine Chloride Urine Total Protein Vancomycin Trough Crossmatch See Detail 10/23/16 10/23/16 10/23/16 00:21 06:09 12:07 WBC RBC Hgb Hct MCV RDW Plt Count Lymph % (Auto) [place] % (Auto) [place] # Seg Neutrophils % Seg Neuts % (Manual) Lymphocytes % (Manual) Monocytes % (Manual) Basophils % (Manual) Nucleated RBC % Seg Neutrophils # Seg Neutrophils # Man Lymphocytes # (Manual) Monocytes # (Manual) Eosinophils # (Manual) Basophils # (Manual) PT INR APTT Heparin Anti-Xa Level POC ABG pH POC ABG pCO2 POC ABG pO2 Sodium Potassium Chloride Carbon Dioxide BUN Creatinine Glucose POC Glucose 283 H 241 H 340 H Calcium Phosphorus Magnesium AST Alkaline Phosphatase C-Reactive Protein Total Protein Albumin Lipase Vitamin B12 TSH Urine WBC (Auto) Urine Chloride Urine Total Protein Vancomycin Trough Crossmatch 10/23/16 10/23/16 10/23/16 14:01 16:00 17:59 WBC RBC Hgb Hct MCV RDW Plt Count Lymph % (Auto) [place] % (Auto) [place] # Seg Neutrophils % Seg Neuts % (Manual) Lymphocytes % (Manual) Monocytes % (Manual) Basophils % (Manual) Nucleated RBC % Seg Neutrophils # Seg Neutrophils # Man Lymphocytes # (Manual) Monocytes # (Manual) Eosinophils # (Manual) Basophils # (Manual) PT INR APTT Heparin Anti-Xa Level 0.19 L POC ABG pH POC ABG pCO2 32.4 L POC ABG pO2 Sodium Potassium Chloride Carbon Dioxide BUN Creatinine Glucose POC Glucose 245 H Calcium Phosphorus Magnesium AST Alkaline Phosphatase C-Reactive Protein Total Protein Albumin Lipase Vitamin B12 TSH Urine WBC (Auto) Urine Chloride Urine Total Protein Vancomycin Trough Crossmatch 10/23/16 10/23/16 10/23/16 22:55 Unknown Unknown WBC 22.6 H RBC 3.26 L Hgb Hct MCV RDW 17.1 H Plt Count Lymph % (Auto) [place] % (Auto) [place] # Seg Neutrophils % Seg Neuts % (Manual) Lymphocytes % (Manual) 11.0 L Monocytes % (Manual) Basophils % (Manual) Nucleated RBC % Seg Neutrophils # Seg Neutrophils # Man 14.0 H Lymphocytes # (Manual) Monocytes # (Manual) Eosinophils # (Manual) Basophils # (Manual) PT INR APTT Heparin Anti-Xa Level 0.17 L 0.15 L POC ABG pH POC ABG pCO2 POC ABG pO2 Sodium Potassium Chloride Carbon Dioxide BUN Creatinine Glucose POC Glucose Calcium Phosphorus Magnesium AST Alkaline Phosphatase C-Reactive Protein Total Protein Albumin Lipase Vitamin B12 TSH Urine WBC (Auto) Urine Chloride Urine Total Protein Vancomycin Trough Crossmatch 10/23/16 10/24/16 10/24/16 Unknown 00:05 05:30 WBC RBC Hgb Hct MCV RDW Plt Count Lymph % (Auto) [place] % (Auto) [place] # Seg Neutrophils % Seg Neuts % (Manual) Lymphocytes % (Manual) Monocytes % (Manual) Basophils % (Manual) Nucleated RBC % Seg Neutrophils # Seg Neutrophils # Man Lymphocytes # (Manual) Monocytes # (Manual) Eosinophils # (Manual) Basophils # (Manual) PT INR APTT Heparin Anti-Xa Level 0.13 L POC ABG pH POC ABG pCO2 POC ABG pO2 Sodium Potassium Chloride 111.2 H Carbon Dioxide 20 L BUN 25 H Creatinine Glucose 227 H POC Glucose 118 H Calcium 7.1 L Phosphorus Magnesium AST Alkaline Phosphatase C-Reactive Protein Total Protein Albumin Lipase Vitamin B12 TSH Urine WBC (Auto) Urine Chloride Urine Total Protein Vancomycin Trough Crossmatch 10/24/16 10/24/16 10/24/16 11:00 11:00 12:06 WBC 17.6 H RBC 2.92 L Hgb 9.2 L Hct 28.3 L MCV RDW 16.9 H Plt Count Lymph % (Auto) [place] % (Auto) [place] # Seg Neutrophils % Seg Neuts % (Manual) Lymphocytes % (Manual) Monocytes % (Manual) Basophils % (Manual) Nucleated RBC % Seg Neutrophils # Seg Neutrophils # Man Lymphocytes # (Manual) Monocytes # (Manual) Eosinophils # (Manual) Basophils # (Manual) PT INR APTT Heparin Anti-Xa Level 0.27 L POC ABG pH POC ABG pCO2 POC ABG pO2 Sodium Potassium Chloride Carbon Dioxide BUN Creatinine Glucose POC Glucose 166 H Calcium Phosphorus Magnesium AST Alkaline Phosphatase C-Reactive Protein Total Protein Albumin Lipase Vitamin B12 TSH Urine WBC (Auto) Urine Chloride Urine Total Protein Vancomycin Trough Crossmatch 10/24/16 10/25/16 10/25/16 12:27 00:49 03:30 WBC RBC Hgb 8.8 L Hct 28.1 L MCV RDW Plt Count Lymph % (Auto) [place] % (Auto) [place] # Seg Neutrophils % Seg Neuts % (Manual) Lymphocytes % (Manual) Monocytes % (Manual) Basophils % (Manual) Nucleated RBC % Seg Neutrophils # Seg Neutrophils # Man Lymphocytes # (Manual) Monocytes # (Manual) Eosinophils # (Manual) Basophils # (Manual) PT INR APTT Heparin Anti-Xa Level POC ABG pH POC ABG pCO2 33.9 L POC ABG pO2 Sodium Potassium Chloride Carbon Dioxide BUN Creatinine Glucose POC Glucose 121 H Calcium Phosphorus Magnesium AST Alkaline Phosphatase C-Reactive Protein Total Protein Albumin Lipase Vitamin B12 TSH Urine WBC (Auto) Urine Chloride Urine Total Protein Vancomycin Trough Crossmatch 10/25/16 10/25/16 10/25/16 09:49 12:10 19:25 WBC 21.1 H RBC 3.02 L Hgb 9.3 L Hct 28.9 L MCV RDW 16.3 H Plt Count Lymph % (Auto) [place] % (Auto) [place] # Seg Neutrophils % Seg Neuts % (Manual) 81.0 H Lymphocytes % (Manual) 9.0 L Monocytes % (Manual) Basophils % (Manual) Nucleated RBC % Seg Neutrophils # Seg Neutrophils # Man 17.1 H Lymphocytes # (Manual) Monocytes # (Manual) Eosinophils # (Manual) Basophils # (Manual) PT INR APTT Heparin Anti-Xa Level POC ABG pH POC ABG pCO2 POC ABG pO2 Sodium Potassium Chloride Carbon Dioxide BUN Creatinine Glucose POC Glucose 158 H 151 H Calcium Phosphorus Magnesium AST Alkaline Phosphatase C-Reactive Protein Total Protein Albumin Lipase Vitamin B12 TSH Urine WBC (Auto) Urine Chloride Urine Total Protein Vancomycin Trough Crossmatch 10/26/16 10/26/16 10/26/16 00:20 01:09 05:02 WBC 22.2 H RBC 2.89 L Hgb 8.7 L Hct 27.8 L MCV RDW 16.4 H Plt Count Lymph % (Auto) [place] % (Auto) [place] # Seg Neutrophils % Seg Neuts % (Manual) Lymphocytes % (Manual) Monocytes % (Manual) Basophils % (Manual) Nucleated RBC % Seg Neutrophils # Seg Neutrophils # Man Lymphocytes # (Manual) Monocytes # (Manual) Eosinophils # (Manual) Basophils # (Manual) PT INR APTT Heparin Anti-Xa Level POC ABG pH POC ABG pCO2 POC ABG pO2 Sodium Potassium Chloride Carbon Dioxide BUN Creatinine Glucose POC Glucose 44 L 112 H Calcium Phosphorus Magnesium AST Alkaline Phosphatase C-Reactive Protein Total Protein Albumin Lipase Vitamin B12 TSH Urine WBC (Auto) Urine Chloride Urine Total Protein Vancomycin Trough Crossmatch 10/26/16 10/26/16 10/26/16 05:02 12:11 12:14 WBC RBC Hgb Hct MCV RDW Plt Count Lymph % (Auto) [place] % (Auto) [place] # Seg Neutrophils % Seg Neuts % (Manual) Lymphocytes % (Manual) Monocytes % (Manual) Basophils % (Manual) Nucleated RBC % Seg Neutrophils # Seg Neutrophils # Man Lymphocytes # (Manual) Monocytes # (Manual) Eosinophils # (Manual) Basophils # (Manual) PT INR APTT Heparin Anti-Xa Level POC ABG pH POC ABG pCO2 32.0 L POC ABG pO2 33 L Sodium Potassium 3.2 L D Chloride Carbon Dioxide 20 L BUN 24 H Creatinine Glucose 104 H POC Glucose 194 H Calcium 7.7 L Phosphorus Magnesium AST Alkaline Phosphatase C-Reactive Protein Total Protein Albumin Lipase Vitamin B12 TSH Urine WBC (Auto) Urine Chloride Urine Total Protein Vancomycin Trough Crossmatch 10/26/16 10/26/16 10/27/16 15:28 17:23 00:04 WBC RBC Hgb Hct MCV RDW Plt Count Lymph % (Auto) [place] % (Auto) [place] # Seg Neutrophils % Seg Neuts % (Manual) Lymphocytes % (Manual) Monocytes % (Manual) Basophils % (Manual) Nucleated RBC % Seg Neutrophils # Seg Neutrophils # Man Lymphocytes # (Manual) Monocytes # (Manual) Eosinophils # (Manual) Basophils # (Manual) PT INR APTT Heparin Anti-Xa Level POC ABG pH POC ABG pCO2 33.7 L POC ABG pO2 Sodium Potassium Chloride Carbon Dioxide BUN Creatinine Glucose POC Glucose 181 H 230 H Calcium Phosphorus Magnesium AST Alkaline Phosphatase C-Reactive Protein Total Protein Albumin Lipase Vitamin B12 TSH Urine WBC (Auto) Urine Chloride Urine Total Protein Vancomycin Trough Crossmatch 10/27/16 10/27/16 10/27/16 05:15 05:15 05:38 WBC 25.5 H RBC 3.07 L Hgb 9.4 L Hct 30.1 L MCV 98 H RDW 16.4 H Plt Count 527 H Lymph % (Auto) [place] % (Auto) [place] # Seg Neutrophils % Seg Neuts % (Manual) Lymphocytes % (Manual) Monocytes % (Manual) Basophils % (Manual) Nucleated RBC % Seg Neutrophils # Seg Neutrophils # Man Lymphocytes # (Manual) Monocytes # (Manual) Eosinophils # (Manual) Basophils # (Manual) PT INR APTT Heparin Anti-Xa Level POC ABG pH POC ABG pCO2 POC ABG pO2 Sodium Potassium Chloride Carbon Dioxide 19 L BUN 23 H Creatinine Glucose 160 H POC Glucose 168 H Calcium 8.0 L Phosphorus Magnesium AST Alkaline Phosphatase C-Reactive Protein Total Protein Albumin Lipase Vitamin B12 TSH Urine WBC (Auto) Urine Chloride Urine Total Protein Vancomycin Trough Crossmatch 10/27/16 10/27/16 10/27/16 11:59 18:35 23:48 WBC RBC Hgb Hct MCV RDW Plt Count Lymph % (Auto) [place] % (Auto) [place] # Seg Neutrophils % Seg Neuts % (Manual) Lymphocytes % (Manual) Monocytes % (Manual) Basophils % (Manual) Nucleated RBC % Seg Neutrophils # Seg Neutrophils # Man Lymphocytes # (Manual) Monocytes # (Manual) Eosinophils # (Manual) Basophils # (Manual) PT INR APTT Heparin Anti-Xa Level POC ABG pH POC ABG pCO2 POC ABG pO2 Sodium Potassium Chloride Carbon Dioxide BUN Creatinine Glucose POC Glucose 197 H 318 H 316 H Calcium Phosphorus Magnesium AST Alkaline Phosphatase C-Reactive Protein Total Protein Albumin Lipase Vitamin B12 TSH Urine WBC (Auto) Urine Chloride Urine Total Protein Vancomycin Trough Crossmatch 10/28/16 10/28/16 10/28/16 03:13 04:10 04:10 WBC 18.8 H RBC 2.64 L Hgb 8.1 L Hct 26.1 L MCV 99 H RDW 16.2 H Plt Count 544 H Lymph % (Auto) [place] % (Auto) [place] # Seg Neutrophils % Seg Neuts % (Manual) Lymphocytes % (Manual) Monocytes % (Manual) Basophils % (Manual) Nucleated RBC % Seg Neutrophils # Seg Neutrophils # Man Lymphocytes # (Manual) Monocytes # (Manual) Eosinophils # (Manual) Basophils # (Manual) PT INR APTT Heparin Anti-Xa Level POC ABG pH POC ABG pCO2 POC ABG pO2 Sodium Potassium Chloride Carbon Dioxide 21 L BUN 24 H Creatinine Glucose 302 H POC Glucose 304 H Calcium 7.7 L Phosphorus Magnesium AST Alkaline Phosphatase C-Reactive Protein Total Protein Albumin Lipase Vitamin B12 TSH Urine WBC (Auto) Urine Chloride Urine Total Protein Vancomycin Trough Crossmatch 10/28/16 10/28/16 10/28/16 04:10 12:36 18:27 WBC RBC Hgb Hct MCV RDW Plt Count Lymph % (Auto) [place] % (Auto) [place] # Seg Neutrophils % Seg Neuts % (Manual) Lymphocytes % (Manual) Monocytes % (Manual) Basophils % (Manual) Nucleated RBC % Seg Neutrophils # Seg Neutrophils # Man Lymphocytes # (Manual) Monocytes # (Manual) Eosinophils # (Manual) Basophils # (Manual) PT INR APTT Heparin Anti-Xa Level 0.20 L POC ABG pH POC ABG pCO2 POC ABG pO2 Sodium Potassium Chloride Carbon Dioxide BUN Creatinine Glucose POC Glucose 205 H 339 H Calcium Phosphorus Magnesium AST Alkaline Phosphatase C-Reactive Protein Total Protein Albumin Lipase Vitamin B12 TSH Urine WBC (Auto) Urine Chloride Urine Total Protein Vancomycin Trough Crossmatch 10/29/16 10/29/16 10/29/16 01:05 06:19 09:30 WBC 20.3 H RBC 2.80 L Hgb 8.5 L Hct 26.7 L MCV RDW 15.4 H Plt Count 571 H Lymph % (Auto) [place] % (Auto) [place] # Seg Neutrophils % Seg Neuts % (Manual) 75.0 H Lymphocytes % (Manual) 4.0 L Monocytes % (Manual) Basophils % (Manual) Nucleated RBC % Seg Neutrophils # Seg Neutrophils # Man 15.2 H Lymphocytes # (Manual) 0.8 L Monocytes # (Manual) Eosinophils # (Manual) Basophils # (Manual) PT INR APTT Heparin Anti-Xa Level POC ABG pH POC ABG pCO2 POC ABG pO2 Sodium Potassium Chloride Carbon Dioxide BUN Creatinine Glucose POC Glucose 275 H 179 H Calcium Phosphorus Magnesium AST Alkaline Phosphatase C-Reactive Protein Total Protein Albumin Lipase Vitamin B12 TSH Urine WBC (Auto) Urine Chloride Urine Total Protein Vancomycin Trough Crossmatch 10/29/16 10/29/16 10/29/16 11:46 15:18 17:55 WBC RBC Hgb Hct MCV RDW Plt Count Lymph % (Auto) [place] % (Auto) [place] # Seg Neutrophils % Seg Neuts % (Manual) Lymphocytes % (Manual) Monocytes % (Manual) Basophils % (Manual) Nucleated RBC % Seg Neutrophils # Seg Neutrophils # Man Lymphocytes # (Manual) Monocytes # (Manual) Eosinophils # (Manual) Basophils # (Manual) PT INR APTT Heparin Anti-Xa Level 1.15 H POC ABG pH POC ABG pCO2 POC ABG pO2 Sodium Potassium Chloride Carbon Dioxide BUN Creatinine Glucose POC Glucose 122 H 255 H Calcium Phosphorus Magnesium AST Alkaline Phosphatase C-Reactive Protein Total Protein Albumin Lipase Vitamin B12 TSH Urine WBC (Auto) Urine Chloride Urine Total Protein Vancomycin Trough Crossmatch 10/30/16 10/30/16 10/30/16 00:10 05:30 05:30 WBC 19.8 H RBC 2.51 L Hgb 7.7 L Hct 24.1 L MCV RDW 15.5 H Plt Count 534 H Lymph % (Auto) [place] % (Auto) [place] # Seg Neutrophils % Seg Neuts % (Manual) Lymphocytes % (Manual) Monocytes % (Manual) Basophils % (Manual) Nucleated RBC % Seg Neutrophils # Seg Neutrophils # Man Lymphocytes # (Manual) Monocytes # (Manual) Eosinophils # (Manual) Basophils # (Manual) PT INR APTT Heparin Anti-Xa Level POC ABG pH POC ABG pCO2 POC ABG pO2 Sodium Potassium Chloride Carbon Dioxide BUN Creatinine Glucose 211 H POC Glucose 202 H Calcium 7.4 L Phosphorus Magnesium AST Alkaline Phosphatase C-Reactive Protein Total Protein Albumin Lipase Vitamin B12 TSH Urine WBC (Auto) Urine Chloride Urine Total Protein Vancomycin Trough Crossmatch 10/30/16 10/30/16 10/30/16 06:32 12:51 17:47 WBC RBC Hgb Hct MCV RDW Plt Count Lymph % (Auto) [place] % (Auto) [place] # Seg Neutrophils % Seg Neuts % (Manual) Lymphocytes % (Manual) Monocytes % (Manual) Basophils % (Manual) Nucleated RBC % Seg Neutrophils # Seg Neutrophils # Man Lymphocytes # (Manual) Monocytes # (Manual) Eosinophils # (Manual) Basophils # (Manual) PT INR APTT Heparin Anti-Xa Level POC ABG pH POC ABG pCO2 POC ABG pO2 Sodium Potassium Chloride Carbon Dioxide BUN Creatinine Glucose POC Glucose 207 H 218 H 169 H Calcium Phosphorus Magnesium AST Alkaline Phosphatase C-Reactive Protein Total Protein Albumin Lipase Vitamin B12 TSH Urine WBC (Auto) Urine Chloride Urine Total Protein Vancomycin Trough Crossmatch 10/30/16 10/31/16 10/31/16 23:59 05:25 11:21 WBC RBC Hgb Hct MCV RDW Plt Count Lymph % (Auto) [place] % (Auto) [place] # Seg Neutrophils % Seg Neuts % (Manual) Lymphocytes % (Manual) Monocytes % (Manual) Basophils % (Manual) Nucleated RBC % Seg Neutrophils # Seg Neutrophils # Man Lymphocytes # (Manual) Monocytes # (Manual) Eosinophils # (Manual) Basophils # (Manual) PT INR APTT Heparin Anti-Xa Level POC ABG pH POC ABG pCO2 POC ABG pO2 Sodium Potassium Chloride Carbon Dioxide BUN Creatinine Glucose POC Glucose 138 H 127 H 132 H Calcium Phosphorus Magnesium AST Alkaline Phosphatase C-Reactive Protein Total Protein Albumin Lipase Vitamin B12 TSH Urine WBC (Auto) Urine Chloride Urine Total Protein Vancomycin Trough Crossmatch 10/31/16 10/31/16 11/01/16 17:07 23:54 05:47 WBC RBC Hgb Hct MCV RDW Plt Count Lymph % (Auto) [place] % (Auto) [place] # Seg Neutrophils % Seg Neuts % (Manual) Lymphocytes % (Manual) Monocytes % (Manual) Basophils % (Manual) Nucleated RBC % Seg Neutrophils # Seg Neutrophils # Man Lymphocytes # (Manual) Monocytes # (Manual) Eosinophils # (Manual) Basophils # (Manual) PT INR APTT Heparin Anti-Xa Level POC ABG pH POC ABG pCO2 POC ABG pO2 Sodium Potassium Chloride Carbon Dioxide BUN Creatinine Glucose POC Glucose 138 H 153 H 150 H Calcium Phosphorus Magnesium AST Alkaline Phosphatase C-Reactive Protein Total Protein Albumin Lipase Vitamin B12 TSH Urine WBC (Auto) Urine Chloride Urine Total Protein Vancomycin Trough Crossmatch 11/01/16 11/01/16 11/01/16 06:33 06:33 12:16 WBC 19.2 H RBC 2.51 L Hgb 7.9 L Hct 24.8 L MCV 99 H D RDW 16.1 H Plt Count 569 H Lymph % (Auto) [place] % (Auto) [place] # Seg Neutrophils % Seg Neuts % (Manual) Lymphocytes % (Manual) Monocytes % (Manual) Basophils % (Manual) Nucleated RBC % Seg Neutrophils # Seg Neutrophils # Man Lymphocytes # (Manual) Monocytes # (Manual) Eosinophils # (Manual) Basophils # (Manual) PT INR APTT Heparin Anti-Xa Level POC ABG pH POC ABG pCO2 POC ABG pO2 Sodium Potassium 3.5 L Chloride Carbon Dioxide 21 L BUN Creatinine Glucose 137 H POC Glucose 125 H Calcium 7.7 L Phosphorus Magnesium AST Alkaline Phosphatase 148 H C-Reactive Protein Total Protein 6.2 L Albumin 2.0 L Lipase Vitamin B12 TSH Urine WBC (Auto) Urine Chloride Urine Total Protein Vancomycin Trough Crossmatch 11/01/16 11/02/16 11/02/16 17:37 00:05 04:15 WBC RBC Hgb Hct MCV RDW Plt Count Lymph % (Auto) [place] % (Auto) [place] # Seg Neutrophils % Seg Neuts % (Manual) Lymphocytes % (Manual) Monocytes % (Manual) Basophils % (Manual) Nucleated RBC % Seg Neutrophils # Seg Neutrophils # Man Lymphocytes # (Manual) Monocytes # (Manual) Eosinophils # (Manual) Basophils # (Manual) PT INR APTT Heparin Anti-Xa Level < 0.10 L POC ABG pH POC ABG pCO2 POC ABG pO2 Sodium Potassium 3.2 L Chloride Carbon Dioxide BUN 6 L Creatinine Glucose 135 H POC Glucose 164 H Calcium 7.5 L Phosphorus Magnesium AST Alkaline Phosphatase 132 H C-Reactive Protein Total Protein 6.2 L Albumin 1.8 L Lipase Vitamin B12 TSH Urine WBC (Auto) Urine Chloride Urine Total Protein Vancomycin Trough Crossmatch 11/02/16 11/02/16 11/02/16 04:15 05:54 12:15 WBC 17.7 H RBC 2.43 L Hgb 7.6 L Hct 23.5 L MCV RDW 15.9 H Plt Count 502 H Lymph % (Auto) [place] % (Auto) [place] # Seg Neutrophils % Seg Neuts % (Manual) 84.0 H Lymphocytes % (Manual) 11.0 L Monocytes % (Manual) Basophils % (Manual) Nucleated RBC % 1.0 H Seg Neutrophils # Seg Neutrophils # Man 14.9 H Lymphocytes # (Manual) Monocytes # (Manual) Eosinophils # (Manual) Basophils # (Manual) PT INR APTT Heparin Anti-Xa Level POC ABG pH POC ABG pCO2 POC ABG pO2 Sodium Potassium Chloride Carbon Dioxide BUN Creatinine Glucose POC Glucose 152 H 137 H Calcium Phosphorus Magnesium AST Alkaline Phosphatase C-Reactive Protein Total Protein Albumin Lipase Vitamin B12 TSH Urine WBC (Auto) Urine Chloride Urine Total Protein Vancomycin Trough Crossmatch 11/02/16 11/03/16 11/03/16 17:00 00:05 00:05 WBC RBC Hgb Hct MCV RDW Plt Count Lymph % (Auto) [place] % (Auto) [place] # Seg Neutrophils % Seg Neuts % (Manual) Lymphocytes % (Manual) Monocytes % (Manual) Basophils % (Manual) Nucleated RBC % Seg Neutrophils # Seg Neutrophils # Man Lymphocytes # (Manual) Monocytes # (Manual) Eosinophils # (Manual) Basophils # (Manual) PT INR APTT Heparin Anti-Xa Level POC ABG pH POC ABG pCO2 POC ABG pO2 Sodium Potassium Chloride Carbon Dioxide 20 L BUN 5 L Creatinine Glucose 139 H POC Glucose 161 H Calcium 6.7 L Phosphorus Magnesium 1.2 L AST Alkaline Phosphatase C-Reactive Protein Total Protein Albumin Lipase Vitamin B12 TSH Urine WBC (Auto) Urine Chloride Urine Total Protein Vancomycin Trough Crossmatch 11/03/16 11/03/16 11/03/16 00:05 02:05 04:23 WBC 15.9 H 14.0 H RBC 1.93 L 2.38 L Hgb 5.9 L* 7.3 L Hct 18.9 L* 23.1 L MCV 98 H RDW 15.9 H 15.9 H Plt Count Lymph % (Auto) [place] % (Auto) [place] # Seg Neutrophils % Seg Neuts % (Manual) 85.0 H Lymphocytes % (Manual) 4.0 L Monocytes % (Manual) Basophils % (Manual) Nucleated RBC % Seg Neutrophils # Seg Neutrophils # Man 13.5 H Lymphocytes # (Manual) 0.6 L Monocytes # (Manual) Eosinophils # (Manual) Basophils # (Manual) PT INR APTT Heparin Anti-Xa Level POC ABG pH POC ABG pCO2 POC ABG pO2 Sodium Potassium Chloride Carbon Dioxide BUN 5 L Creatinine Glucose 127 H POC Glucose Calcium 7.2 L Phosphorus Magnesium AST Alkaline Phosphatase C-Reactive Protein Total Protein 5.8 L Albumin 1.5 L Lipase Vitamin B12 TSH Urine WBC (Auto) Urine Chloride Urine Total Protein Vancomycin Trough Crossmatch 11/03/16 11/03/16 11/03/16 09:14 09:27 11:54 WBC RBC Hgb Hct MCV RDW Plt Count Lymph % (Auto) [place] % (Auto) [place] # Seg Neutrophils % Seg Neuts % (Manual) Lymphocytes % (Manual) Monocytes % (Manual) Basophils % (Manual) Nucleated RBC % Seg Neutrophils # Seg Neutrophils # Man Lymphocytes # (Manual) Monocytes # (Manual) Eosinophils # (Manual) Basophils # (Manual) PT INR APTT Heparin Anti-Xa Level 0.11 L POC ABG pH POC ABG pCO2 POC ABG pO2 Sodium Potassium Chloride Carbon Dioxide BUN 5 L Creatinine Glucose 111 H POC Glucose 139 H Calcium 6.7 L Phosphorus Magnesium AST Alkaline Phosphatase C-Reactive Protein Total Protein Albumin Lipase Vitamin B12 TSH Urine WBC (Auto) Urine Chloride Urine Total Protein Vancomycin Trough Crossmatch 11/03/16 11/03/16 11/03/16 16:26 18:01 18:01 WBC RBC Hgb Hct MCV RDW Plt Count Lymph % (Auto) [place] % (Auto) [place] # Seg Neutrophils % Seg Neuts % (Manual) Lymphocytes % (Manual) Monocytes % (Manual) Basophils % (Manual) Nucleated RBC % Seg Neutrophils # Seg Neutrophils # Man Lymphocytes # (Manual) Monocytes # (Manual) Eosinophils # (Manual) Basophils # (Manual) PT INR APTT Heparin Anti-Xa Level 2.00 H POC ABG pH POC ABG pCO2 POC ABG pO2 Sodium Potassium Chloride Carbon Dioxide BUN Creatinine Glucose POC Glucose 142 H Calcium Phosphorus Magnesium AST Alkaline Phosphatase C-Reactive Protein Total Protein Albumin Lipase Vitamin B12 TSH Urine WBC (Auto) Urine Chloride Urine Total Protein Vancomycin Trough Crossmatch See Detail 11/04/16 11/04/16 11/04/16 02:15 02:15 06:35 WBC 11.8 H RBC 2.39 L Hgb 7.4 L Hct 23.1 L MCV RDW 15.9 H Plt Count Lymph % (Auto) [place] % (Auto) [place] # Seg Neutrophils % Seg Neuts % (Manual) 76.0 H Lymphocytes % (Manual) 12.0 L Monocytes % (Manual) 9.0 H Basophils % (Manual) Nucleated RBC % Seg Neutrophils # Seg Neutrophils # Man 9.0 H Lymphocytes # (Manual) Monocytes # (Manual) 1.1 H Eosinophils # (Manual) Basophils # (Manual) PT INR APTT Heparin Anti-Xa Level < 0.10 L POC ABG pH POC ABG pCO2 POC ABG pO2 Sodium Potassium Chloride Carbon Dioxide 21 L BUN 5 L Creatinine Glucose 112 H POC Glucose Calcium 6.8 L Phosphorus Magnesium AST Alkaline Phosphatase C-Reactive Protein Total Protein 5.7 L Albumin 1.7 L Lipase Vitamin B12 TSH Urine WBC (Auto) Urine Chloride Urine Total Protein Vancomycin Trough Crossmatch 11/04/16 11/04/16 11/04/16 10:51 12:58 15:04 WBC RBC Hgb Hct MCV RDW Plt Count Lymph % (Auto) [place] % (Auto) [place] # Seg Neutrophils % Seg Neuts % (Manual) Lymphocytes % (Manual) Monocytes % (Manual) Basophils % (Manual) Nucleated RBC % Seg Neutrophils # Seg Neutrophils # Man Lymphocytes # (Manual) Monocytes # (Manual) Eosinophils # (Manual) Basophils # (Manual) PT INR APTT Heparin Anti-Xa Level 1.05 H POC ABG pH POC ABG pCO2 33.7 L POC ABG pO2 60 L Sodium Potassium Chloride Carbon Dioxide BUN Creatinine Glucose POC Glucose 118 H Calcium Phosphorus Magnesium AST Alkaline Phosphatase C-Reactive Protein Total Protein Albumin Lipase Vitamin B12 TSH Urine WBC (Auto) Urine Chloride Urine Total Protein Vancomycin Trough Crossmatch 11/04/16 11/04/16 11/05/16 17:20 20:31 02:30 WBC RBC Hgb Hct MCV RDW Plt Count Lymph % (Auto) [place] % (Auto) [place] # Seg Neutrophils % Seg Neuts % (Manual) Lymphocytes % (Manual) Monocytes % (Manual) Basophils % (Manual) Nucleated RBC % Seg Neutrophils # Seg Neutrophils # Man Lymphocytes # (Manual) Monocytes # (Manual) Eosinophils # (Manual) Basophils # (Manual) PT INR APTT Heparin Anti-Xa Level POC ABG pH POC ABG pCO2 POC ABG pO2 Sodium Potassium 3.5 L Chloride Carbon Dioxide 18 L BUN 5 L Creatinine 0.6 L Glucose 110 H POC Glucose 228 H 169 H Calcium 7.1 L Phosphorus Magnesium AST Alkaline Phosphatase C-Reactive Protein Total Protein Albumin 1.9 L Lipase Vitamin B12 TSH Urine WBC (Auto) Urine Chloride Urine Total Protein Vancomycin Trough Crossmatch 11/05/16 11/05/16 11/05/16 02:30 17:52 21:07 WBC 14.1 H RBC Hgb Hct MCV RDW 16.7 H Plt Count Lymph % (Auto) [place] % (Auto) [place] # Seg Neutrophils % Seg Neuts % (Manual) 80.0 H Lymphocytes % (Manual) 6.0 L Monocytes % (Manual) 8.0 H Basophils % (Manual) Nucleated RBC % Seg Neutrophils # Seg Neutrophils # Man 11.3 H Lymphocytes # (Manual) 0.8 L Monocytes # (Manual) 1.1 H Eosinophils # (Manual) Basophils # (Manual) PT INR APTT Heparin Anti-Xa Level < 0.10 L POC ABG pH POC ABG pCO2 POC ABG pO2 Sodium Potassium Chloride Carbon Dioxide BUN Creatinine Glucose POC Glucose 174 H Calcium Phosphorus Magnesium AST Alkaline Phosphatase C-Reactive Protein Total Protein Albumin Lipase Vitamin B12 TSH Urine WBC (Auto) Urine Chloride Urine Total Protein Vancomycin Trough Crossmatch 11/05/16 11/06/16 11/06/16 23:30 05:00 05:00 WBC 15.2 H RBC 3.29 L Hgb 10.0 L Hct MCV RDW 16.9 H Plt Count Lymph % (Auto) [place] % (Auto) [place] # Seg Neutrophils % Seg Neuts % (Manual) Lymphocytes % (Manual) Monocytes % (Manual) Basophils % (Manual) Nucleated RBC % Seg Neutrophils # Seg Neutrophils # Man Lymphocytes # (Manual) Monocytes # (Manual) Eosinophils # (Manual) Basophils # (Manual) PT INR APTT Heparin Anti-Xa Level 0.94 H POC ABG pH POC ABG pCO2 POC ABG pO2 Sodium Potassium Chloride Carbon Dioxide BUN Creatinine Glucose POC Glucose 131 H Calcium Phosphorus Magnesium AST Alkaline Phosphatase C-Reactive Protein Total Protein Albumin Lipase Vitamin B12 TSH Urine WBC (Auto) Urine Chloride Urine Total Protein Vancomycin Trough Crossmatch 11/06/16 11/06/16 11/06/16 05:00 11:45 18:23 WBC RBC Hgb Hct MCV RDW Plt Count Lymph % (Auto) [place] % (Auto) [place] # Seg Neutrophils % Seg Neuts % (Manual) Lymphocytes % (Manual) Monocytes % (Manual) Basophils % (Manual) Nucleated RBC % Seg Neutrophils # Seg Neutrophils # Man Lymphocytes # (Manual) Monocytes # (Manual) Eosinophils # (Manual) Basophils # (Manual) PT INR APTT Heparin Anti-Xa Level POC ABG pH POC ABG pCO2 POC ABG pO2 Sodium Potassium 3.5 L Chloride 107.1 H Carbon Dioxide 20 L BUN 4 L Creatinine 0.6 L Glucose 104 H POC Glucose 141 H 255 H Calcium 6.7 L Phosphorus Magnesium AST Alkaline Phosphatase C-Reactive Protein Total Protein Albumin Lipase Vitamin B12 TSH Urine WBC (Auto) Urine Chloride Urine Total Protein Vancomycin Trough Crossmatch 11/06/16 11/06/16 11/07/16 22:07 23:07 11:41 WBC RBC Hgb Hct MCV RDW Plt Count Lymph % (Auto) [place] % (Auto) [place] # Seg Neutrophils % Seg Neuts % (Manual) Lymphocytes % (Manual) Monocytes % (Manual) Basophils % (Manual) Nucleated RBC % Seg Neutrophils # Seg Neutrophils # Man Lymphocytes # (Manual) Monocytes # (Manual) Eosinophils # (Manual) Basophils # (Manual) PT INR APTT Heparin Anti-Xa Level 0.80 H POC ABG pH POC ABG pCO2 POC ABG pO2 Sodium Potassium Chloride Carbon Dioxide BUN Creatinine Glucose POC Glucose 183 H 132 H Calcium Phosphorus Magnesium AST Alkaline Phosphatase C-Reactive Protein Total Protein Albumin Lipase Vitamin B12 TSH Urine WBC (Auto) Urine Chloride Urine Total Protein Vancomycin Trough Crossmatch 11/07/16 11/07/16 11/07/16 12:17 17:05 17:58 WBC RBC Hgb Hct MCV RDW Plt Count Lymph % (Auto) [place] % (Auto) [place] # Seg Neutrophils % Seg Neuts % (Manual) Lymphocytes % (Manual) Monocytes % (Manual) Basophils % (Manual) Nucleated RBC % Seg Neutrophils # Seg Neutrophils # Man Lymphocytes # (Manual) Monocytes # (Manual) Eosinophils # (Manual) Basophils # (Manual) PT INR APTT Heparin Anti-Xa Level 0.87 H POC ABG pH 7.324 L POC ABG pCO2 POC ABG pO2 Sodium Potassium Chloride Carbon Dioxide BUN Creatinine Glucose POC Glucose 158 H Calcium Phosphorus Magnesium AST Alkaline Phosphatase C-Reactive Protein Total Protein Albumin Lipase Vitamin B12 TSH Urine WBC (Auto) Urine Chloride Urine Total Protein Vancomycin Trough Crossmatch 11/07/16 11/07/16 11/07/16 23:26 Unknown Unknown WBC 12.3 H RBC 2.96 L Hgb 9.1 L Hct 27.9 L MCV RDW 16.8 H Plt Count Lymph % (Auto) [place] % (Auto) [place] # Seg Neutrophils % Seg Neuts % (Manual) 80.0 H Lymphocytes % (Manual) 7.0 L Monocytes % (Manual) Basophils % (Manual) Nucleated RBC % Seg Neutrophils # Seg Neutrophils # Man 9.8 H Lymphocytes # (Manual) 0.9 L Monocytes # (Manual) Eosinophils # (Manual) Basophils # (Manual) PT INR APTT Heparin Anti-Xa Level POC ABG pH POC ABG pCO2 POC ABG pO2 Sodium Potassium Chloride Carbon Dioxide 19 L BUN Creatinine Glucose 106 H POC Glucose 130 H Calcium 6.9 L Phosphorus Magnesium AST Alkaline Phosphatase C-Reactive Protein Total Protein Albumin Lipase Vitamin B12 TSH Urine WBC (Auto) Urine Chloride Urine Total Protein Vancomycin Trough Crossmatch 11/07/16 11/08/16 11/08/16 Unknown 05:14 05:20 WBC 12.4 H RBC 3.04 L Hgb 9.2 L Hct 28.8 L MCV RDW 16.6 H Plt Count Lymph % (Auto) [place] % (Auto) [place] # Seg Neutrophils % Seg Neuts % (Manual) 77.0 H Lymphocytes % (Manual) 5.0 L Monocytes % (Manual) Basophils % (Manual) 2.0 H Nucleated RBC % Seg Neutrophils # Seg Neutrophils # Man 9.5 H Lymphocytes # (Manual) 0.6 L Monocytes # (Manual) Eosinophils # (Manual) Basophils # (Manual) 0.2 H PT INR APTT Heparin Anti-Xa Level 0.90 H POC ABG pH POC ABG pCO2 POC ABG pO2 Sodium Potassium Chloride Carbon Dioxide BUN Creatinine Glucose POC Glucose 204 H Calcium Phosphorus Magnesium AST Alkaline Phosphatase C-Reactive Protein Total Protein Albumin Lipase Vitamin B12 TSH Urine WBC (Auto) Urine Chloride Urine Total Protein Vancomycin Trough Crossmatch 11/08/16 11/08/16 11/08/16 05:20 12:10 13:10 WBC RBC Hgb Hct MCV RDW Plt Count Lymph % (Auto) [place] % (Auto) [place] # Seg Neutrophils % Seg Neuts % (Manual) Lymphocytes % (Manual) Monocytes % (Manual) Basophils % (Manual) Nucleated RBC % Seg Neutrophils # Seg Neutrophils # Man Lymphocytes # (Manual) Monocytes # (Manual) Eosinophils # (Manual) Basophils # (Manual) PT INR APTT Heparin Anti-Xa Level POC ABG pH POC ABG pCO2 33.7 L POC ABG pO2 Sodium 136 L Potassium Chloride Carbon Dioxide 19 L BUN Creatinine Glucose 192 H POC Glucose 180 H Calcium 7.1 L Phosphorus Magnesium AST Alkaline Phosphatase C-Reactive Protein Total Protein Albumin Lipase Vitamin B12 TSH Urine WBC (Auto) Urine Chloride Urine Total Protein Vancomycin Trough Crossmatch 11/08/16 11/08/16 11/08/16 17:26 20:45 23:34 WBC RBC Hgb Hct MCV RDW Plt Count Lymph % (Auto) [place] % (Auto) [place] # Seg Neutrophils % Seg Neuts % (Manual) Lymphocytes % (Manual) Monocytes % (Manual) Basophils % (Manual) Nucleated RBC % Seg Neutrophils # Seg Neutrophils # Man Lymphocytes # (Manual) Monocytes # (Manual) Eosinophils # (Manual) Basophils # (Manual) PT INR APTT Heparin Anti-Xa Level POC ABG pH POC ABG pCO2 POC ABG pO2 Sodium Potassium Chloride Carbon Dioxide BUN Creatinine Glucose POC Glucose 187 H 178 H Calcium Phosphorus Magnesium AST Alkaline Phosphatase C-Reactive Protein Total Protein Albumin Lipase Vitamin B12 TSH Urine WBC (Auto) Urine Chloride Urine Total Protein Vancomycin Trough 35.4 H Crossmatch 11/09/16 11/09/16 11/09/16 05:30 05:30 05:59 WBC 11.5 H RBC 2.96 L Hgb 9.2 L Hct 28.2 L MCV RDW 16.4 H Plt Count Lymph % (Auto) [place] % (Auto) [place] # Seg Neutrophils % Seg Neuts % (Manual) 76.0 H Lymphocytes % (Manual) 2.0 L Monocytes % (Manual) Basophils % (Manual) Nucleated RBC % Seg Neutrophils # Seg Neutrophils # Man 8.7 H Lymphocytes # (Manual) 0.2 L Monocytes # (Manual) Eosinophils # (Manual) Basophils # (Manual) PT INR APTT Heparin Anti-Xa Level POC ABG pH POC ABG pCO2 POC ABG pO2 Sodium Potassium 3.4 L Chloride 107.6 H Carbon Dioxide 19 L BUN Creatinine 0.6 L Glucose 207 H POC Glucose 263 H Calcium 7.3 L Phosphorus Magnesium AST Alkaline Phosphatase C-Reactive Protein Total Protein Albumin Lipase Vitamin B12 TSH Urine WBC (Auto) Urine Chloride Urine Total Protein Vancomycin Trough Crossmatch 11/09/16 11/09/16 11/09/16 11:49 15:24 18:04 WBC RBC Hgb Hct MCV RDW Plt Count Lymph % (Auto) [place] % (Auto) [place] # Seg Neutrophils % Seg Neuts % (Manual) Lymphocytes % (Manual) Monocytes % (Manual) Basophils % (Manual) Nucleated RBC % Seg Neutrophils # Seg Neutrophils # Man Lymphocytes # (Manual) Monocytes # (Manual) Eosinophils # (Manual) Basophils # (Manual) PT INR APTT Heparin Anti-Xa Level POC ABG pH POC ABG pCO2 33.8 L POC ABG pO2 131 H Sodium Potassium Chloride Carbon Dioxide BUN Creatinine Glucose POC Glucose 269 H 242 H Calcium Phosphorus Magnesium AST Alkaline Phosphatase C-Reactive Protein Total Protein Albumin Lipase Vitamin B12 TSH Urine WBC (Auto) Urine Chloride Urine Total Protein Vancomycin Trough Crossmatch 11/09/16 11/10/16 11/10/16 22:57 04:30 04:30 WBC 15.7 H RBC 3.17 L Hgb 9.7 L Hct 30.2 L MCV RDW 16.2 H Plt Count Lymph % (Auto) [place] % (Auto) [place] # Seg Neutrophils % Seg Neuts % (Manual) Lymphocytes % (Manual) Monocytes % (Manual) Basophils % (Manual) Nucleated RBC % Seg Neutrophils # Seg Neutrophils # Man 8.5 H Lymphocytes # (Manual) Monocytes # (Manual) Eosinophils # (Manual) 0.5 H Basophils # (Manual) PT INR APTT Heparin Anti-Xa Level POC ABG pH POC ABG pCO2 POC ABG pO2 Sodium Potassium Chloride Carbon Dioxide 19 L BUN Creatinine 0.6 L Glucose 199 H POC Glucose 239 H Calcium 7.8 L Phosphorus Magnesium AST Alkaline Phosphatase C-Reactive Protein Total Protein Albumin Lipase Vitamin B12 TSH Urine WBC (Auto) Urine Chloride Urine Total Protein Vancomycin Trough Crossmatch 11/10/16 11/10/16 11/10/16 04:30 11:32 16:00 WBC RBC Hgb Hct MCV RDW Plt Count Lymph % (Auto) [place] % (Auto) [place] # Seg Neutrophils % Seg Neuts % (Manual) Lymphocytes % (Manual) Monocytes % (Manual) Basophils % (Manual) Nucleated RBC % Seg Neutrophils # Seg Neutrophils # Man Lymphocytes # (Manual) Monocytes # (Manual) Eosinophils # (Manual) Basophils # (Manual) PT INR APTT Heparin Anti-Xa Level 1.09 H < 0.10 L POC ABG pH POC ABG pCO2 POC ABG pO2 Sodium Potassium Chloride Carbon Dioxide BUN Creatinine Glucose POC Glucose 211 H Calcium Phosphorus Magnesium AST Alkaline Phosphatase C-Reactive Protein Total Protein Albumin Lipase Vitamin B12 TSH Urine WBC (Auto) Urine Chloride Urine Total Protein Vancomycin Trough Crossmatch 11/10/16 11/10/16 11/10/16 17:39 18:00 23:06 WBC RBC Hgb Hct MCV RDW Plt Count Lymph % (Auto) [place] % (Auto) [place] # Seg Neutrophils % Seg Neuts % (Manual) Lymphocytes % (Manual) Monocytes % (Manual) Basophils % (Manual) Nucleated RBC % Seg Neutrophils # Seg Neutrophils # Man Lymphocytes # (Manual) Monocytes # (Manual) Eosinophils # (Manual) Basophils # (Manual) PT INR APTT Heparin Anti-Xa Level 0.85 H POC ABG pH POC ABG pCO2 POC ABG pO2 Sodium Potassium Chloride Carbon Dioxide BUN Creatinine Glucose POC Glucose 249 H 220 H Calcium Phosphorus Magnesium AST Alkaline Phosphatase C-Reactive Protein Total Protein Albumin Lipase Vitamin B12 TSH Urine WBC (Auto) Urine Chloride Urine Total Protein Vancomycin Trough Crossmatch 11/11/16 11/11/16 11/11/16 05:56 06:15 06:15 WBC 13.3 H RBC 2.87 L Hgb 8.7 L Hct 27.2 L MCV RDW 16.4 H Plt Count Lymph % (Auto) [place] % (Auto) [place] # 0.9 H Seg Neutrophils % 78.9 H Seg Neuts % (Manual) Lymphocytes % (Manual) Monocytes % (Manual) Basophils % (Manual) Nucleated RBC % Seg Neutrophils # 10.5 H Seg Neutrophils # Man Lymphocytes # (Manual) Monocytes # (Manual) Eosinophils # (Manual) Basophils # (Manual) PT INR APTT Heparin Anti-Xa Level POC ABG pH POC ABG pCO2 POC ABG pO2 Sodium Potassium 3.2 L Chloride Carbon Dioxide 19 L BUN Creatinine Glucose POC Glucose 117 H Calcium 7.6 L Phosphorus Magnesium AST Alkaline Phosphatase C-Reactive Protein Total Protein Albumin Lipase Vitamin B12 TSH Urine WBC (Auto) Urine Chloride Urine Total Protein Vancomycin Trough Crossmatch 11/11/16 11/11/16 11/11/16 12:26 16:58 17:33 WBC RBC Hgb Hct MCV RDW Plt Count Lymph % (Auto) [place] % (Auto) [place] # Seg Neutrophils % Seg Neuts % (Manual) Lymphocytes % (Manual) Monocytes % (Manual) Basophils % (Manual) Nucleated RBC % Seg Neutrophils # Seg Neutrophils # Man Lymphocytes # (Manual) Monocytes # (Manual) Eosinophils # (Manual) Basophils # (Manual) PT INR APTT Heparin Anti-Xa Level < 0.10 L POC ABG pH POC ABG pCO2 POC ABG pO2 Sodium Potassium Chloride Carbon Dioxide BUN Creatinine Glucose POC Glucose 114 H 161 H Calcium Phosphorus Magnesium AST Alkaline Phosphatase C-Reactive Protein Total Protein Albumin Lipase Vitamin B12 TSH Urine WBC (Auto) Urine Chloride Urine Total Protein Vancomycin Trough Crossmatch 11/12/16 11/12/16 11/12/16 05:00 05:00 05:00 WBC 12.8 H RBC 2.75 L Hgb 8.4 L Hct 25.7 L MCV RDW 16.3 H Plt Count Lymph % (Auto) [place] % (Auto) 7.5 H [place] # 1.0 H Seg Neutrophils % 78.0 H Seg Neuts % (Manual) Lymphocytes % (Manual) Monocytes % (Manual) Basophils % (Manual) Nucleated RBC % Seg Neutrophils # 10.0 H Seg Neutrophils # Man Lymphocytes # (Manual) Monocytes # (Manual) Eosinophils # (Manual) Basophils # (Manual) PT INR APTT Heparin Anti-Xa Level 0.87 H POC ABG pH POC ABG pCO2 POC ABG pO2 Sodium Potassium 3.4 L Chloride Carbon Dioxide 19 L BUN Creatinine Glucose 112 H POC Glucose Calcium 7.7 L Phosphorus Magnesium AST Alkaline Phosphatase C-Reactive Protein Total Protein Albumin Lipase Vitamin B12 TSH Urine WBC (Auto) Urine Chloride Urine Total Protein Vancomycin Trough Crossmatch 11/12/16 11/12/16 11/13/16 11:18 16:40 00:44 WBC RBC Hgb Hct MCV RDW Plt Count Lymph % (Auto) [place] % (Auto) [place] # Seg Neutrophils % Seg Neuts % (Manual) Lymphocytes % (Manual) Monocytes % (Manual) Basophils % (Manual) Nucleated RBC % Seg Neutrophils # Seg Neutrophils # Man Lymphocytes # (Manual) Monocytes # (Manual) Eosinophils # (Manual) Basophils # (Manual) PT INR APTT Heparin Anti-Xa Level POC ABG pH POC ABG pCO2 POC ABG pO2 Sodium Potassium Chloride Carbon Dioxide BUN Creatinine Glucose POC Glucose 135 H 139 H 169 H Calcium Phosphorus Magnesium AST Alkaline Phosphatase C-Reactive Protein Total Protein Albumin Lipase Vitamin B12 TSH Urine WBC (Auto) Urine Chloride Urine Total Protein Vancomycin Trough Crossmatch 11/13/16 11/13/16 11/13/16 05:28 05:28 06:02 WBC 12.7 H RBC 2.93 L Hgb 9.0 L Hct 27.6 L MCV RDW 16.1 H Plt Count Lymph % (Auto) [place] % (Auto) [place] # Seg Neutrophils % 78.6 H Seg Neuts % (Manual) Lymphocytes % (Manual) Monocytes % (Manual) Basophils % (Manual) Nucleated RBC % Seg Neutrophils # 10.0 H Seg Neutrophils # Man Lymphocytes # (Manual) Monocytes # (Manual) Eosinophils # (Manual) Basophils # (Manual) PT INR APTT Heparin Anti-Xa Level POC ABG pH POC ABG pCO2 POC ABG pO2 Sodium Potassium Chloride Carbon Dioxide 17 L BUN Creatinine Glucose 116 H POC Glucose 112 H Calcium 7.8 L Phosphorus Magnesium AST Alkaline Phosphatase C-Reactive Protein Total Protein Albumin Lipase Vitamin B12 TSH Urine WBC (Auto) Urine Chloride Urine Total Protein Vancomycin Trough Crossmatch 11/13/16 11/13/16 11/13/16 12:34 16:55 17:00 WBC RBC Hgb Hct MCV RDW Plt Count Lymph % (Auto) [place] % (Auto) [place] # Seg Neutrophils % Seg Neuts % (Manual) Lymphocytes % (Manual) Monocytes % (Manual) Basophils % (Manual) Nucleated RBC % Seg Neutrophils # Seg Neutrophils # Man Lymphocytes # (Manual) Monocytes # (Manual) Eosinophils # (Manual) Basophils # (Manual) PT INR APTT Heparin Anti-Xa Level POC ABG pH POC ABG pCO2 22.9 L POC ABG pO2 53 L Sodium Potassium Chloride Carbon Dioxide BUN Creatinine Glucose POC Glucose 109 H 122 H Calcium Phosphorus Magnesium AST Alkaline Phosphatase C-Reactive Protein Total Protein Albumin Lipase Vitamin B12 TSH Urine WBC (Auto) Urine Chloride Urine Total Protein Vancomycin Trough Crossmatch 11/13/16 11/14/16 11/14/16 23:33 04:42 04:42 WBC 11.7 H RBC 3.01 L Hgb 9.3 L Hct 28.9 L MCV RDW 16.5 H Plt Count Lymph % (Auto) [place] % (Auto) [place] # Seg Neutrophils % Seg Neuts % (Manual) 79.0 H Lymphocytes % (Manual) 10.0 L Monocytes % (Manual) Basophils % (Manual) Nucleated RBC % Seg Neutrophils # Seg Neutrophils # Man 9.2 H Lymphocytes # (Manual) Monocytes # (Manual) Eosinophils # (Manual) Basophils # (Manual) PT INR APTT Heparin Anti-Xa Level POC ABG pH POC ABG pCO2 POC ABG pO2 Sodium Potassium Chloride Carbon Dioxide 16 L BUN Creatinine Glucose 102 H POC Glucose 173 H Calcium 7.5 L Phosphorus Magnesium AST Alkaline Phosphatase C-Reactive Protein Total Protein Albumin Lipase Vitamin B12 TSH Urine WBC (Auto) Urine Chloride Urine Total Protein Vancomycin Trough Crossmatch 11/14/16 11/14/16 11/14/16 11:43 16:57 19:45 WBC RBC Hgb Hct MCV RDW Plt Count Lymph % (Auto) [place] % (Auto) [place] # Seg Neutrophils % Seg Neuts % (Manual) Lymphocytes % (Manual) Monocytes % (Manual) Basophils % (Manual) Nucleated RBC % Seg Neutrophils # Seg Neutrophils # Man Lymphocytes # (Manual) Monocytes # (Manual) Eosinophils # (Manual) Basophils # (Manual) PT INR APTT Heparin Anti-Xa Level 0.71 H POC ABG pH POC ABG pCO2 POC ABG pO2 Sodium Potassium Chloride Carbon Dioxide BUN Creatinine Glucose POC Glucose 130 H 209 H Calcium Phosphorus Magnesium AST Alkaline Phosphatase C-Reactive Protein Total Protein Albumin Lipase Vitamin B12 TSH Urine WBC (Auto) Urine Chloride Urine Total Protein Vancomycin Trough Crossmatch 11/14/16 11/15/16 11/16/16 23:43 23:47 06:11 WBC RBC Hgb Hct MCV RDW Plt Count Lymph % (Auto) [place] % (Auto) [place] # Seg Neutrophils % Seg Neuts % (Manual) Lymphocytes % (Manual) Monocytes % (Manual) Basophils % (Manual) Nucleated RBC % Seg Neutrophils # Seg Neutrophils # Man Lymphocytes # (Manual) Monocytes # (Manual) Eosinophils # (Manual) Basophils # (Manual) PT INR APTT Heparin Anti-Xa Level POC ABG pH POC ABG pCO2 POC ABG pO2 Sodium Potassium Chloride Carbon Dioxide BUN Creatinine Glucose POC Glucose 167 H 114 H 125 H Calcium Phosphorus Magnesium AST Alkaline Phosphatase C-Reactive Protein Total Protein Albumin Lipase Vitamin B12 TSH Urine WBC (Auto) Urine Chloride Urine Total Protein Vancomycin Trough Crossmatch 11/16/16 11/16/16 11/16/16 09:05 09:05 09:05 WBC RBC 2.53 L Hgb 8.0 L Hct 23.7 L MCV RDW 15.9 H Plt Count Lymph % (Auto) [place] % (Auto) [place] # Seg Neutrophils % Seg Neuts % (Manual) Lymphocytes % (Manual) Monocytes % (Manual) Basophils % (Manual) Nucleated RBC % Seg Neutrophils # Seg Neutrophils # Man Lymphocytes # (Manual) Monocytes # (Manual) Eosinophils # (Manual) Basophils # (Manual) PT INR APTT Heparin Anti-Xa Level POC ABG pH POC ABG pCO2 POC ABG pO2 Sodium Potassium 2.5 L* D Chloride Carbon Dioxide 19 L BUN 5 L Creatinine Glucose 103 H POC Glucose Calcium 6.6 L Phosphorus Magnesium 1.3 L AST Alkaline Phosphatase C-Reactive Protein Total Protein Albumin Lipase Vitamin B12 TSH Urine WBC (Auto) Urine Chloride Urine Total Protein Vancomycin Trough Crossmatch 11/16/16 11/16/16 11/16/16 12:15 13:00 14:45 WBC RBC Hgb Hct MCV RDW Plt Count Lymph % (Auto) [place] % (Auto) [place] # Seg Neutrophils % Seg Neuts % (Manual) Lymphocytes % (Manual) Monocytes % (Manual) Basophils % (Manual) Nucleated RBC % Seg Neutrophils # Seg Neutrophils # Man Lymphocytes # (Manual) Monocytes # (Manual) Eosinophils # (Manual) Basophils # (Manual) PT 19.1 H INR 1.61 H APTT Heparin Anti-Xa Level POC ABG pH 7.479 H POC ABG pCO2 23.6 L POC ABG pO2 Sodium Potassium Chloride Carbon Dioxide BUN Creatinine Glucose POC Glucose 129 H Calcium Phosphorus Magnesium AST Alkaline Phosphatase C-Reactive Protein Total Protein Albumin Lipase Vitamin B12 TSH Urine WBC (Auto) Urine Chloride Urine Total Protein Vancomycin Trough Crossmatch 11/16/16 11/17/16 11/17/16 17:43 00:30 04:32 WBC RBC Hgb Hct MCV RDW Plt Count Lymph % (Auto) [place] % (Auto) [place] # Seg Neutrophils % Seg Neuts % (Manual) Lymphocytes % (Manual) Monocytes % (Manual) Basophils % (Manual) Nucleated RBC % Seg Neutrophils # Seg Neutrophils # Man Lymphocytes # (Manual) Monocytes # (Manual) Eosinophils # (Manual) Basophils # (Manual) PT INR APTT Heparin Anti-Xa Level POC ABG pH POC ABG pCO2 POC ABG pO2 Sodium Potassium Chloride Carbon Dioxide 18 L BUN Creatinine Glucose 127 H POC Glucose 224 H 259 H Calcium 7.5 L Phosphorus Magnesium AST Alkaline Phosphatase C-Reactive Protein Total Protein Albumin Lipase Vitamin B12 TSH Urine WBC (Auto) Urine Chloride Urine Total Protein Vancomycin Trough Crossmatch 11/17/16 11/17/16 11/17/16 05:42 08:34 12:19 WBC RBC 2.85 L Hgb 8.9 L Hct 26.5 L MCV RDW 16.2 H Plt Count Lymph % (Auto) [place] % (Auto) [place] # Seg Neutrophils % Seg Neuts % (Manual) Lymphocytes % (Manual) Monocytes % (Manual) Basophils % (Manual) Nucleated RBC % Seg Neutrophils # Seg Neutrophils # Man Lymphocytes # (Manual) Monocytes # (Manual) Eosinophils # (Manual) Basophils # (Manual) PT INR APTT Heparin Anti-Xa Level POC ABG pH POC ABG pCO2 POC ABG pO2 Sodium Potassium Chloride Carbon Dioxide BUN Creatinine Glucose POC Glucose 118 H 264 H Calcium Phosphorus Magnesium AST Alkaline Phosphatase C-Reactive Protein Total Protein Albumin Lipase Vitamin B12 TSH Urine WBC (Auto) Urine Chloride Urine Total Protein Vancomycin Trough Crossmatch 11/17/16 11/17/16 11/18/16 16:52 23:44 04:53 WBC RBC Hgb Hct MCV RDW Plt Count Lymph % (Auto) [place] % (Auto) [place] # Seg Neutrophils % Seg Neuts % (Manual) Lymphocytes % (Manual) Monocytes % (Manual) Basophils % (Manual) Nucleated RBC % Seg Neutrophils # Seg Neutrophils # Man Lymphocytes # (Manual) Monocytes # (Manual) Eosinophils # (Manual) Basophils # (Manual) PT INR APTT Heparin Anti-Xa Level POC ABG pH POC ABG pCO2 POC ABG pO2 Sodium Potassium Chloride Carbon Dioxide BUN Creatinine Glucose POC Glucose 256 H 109 H 287 H Calcium Phosphorus Magnesium AST Alkaline Phosphatase C-Reactive Protein Total Protein Albumin Lipase Vitamin B12 TSH Urine WBC (Auto) Urine Chloride Urine Total Protein Vancomycin Trough Crossmatch 11/18/16 11/18/16 11/18/16 05:31 05:45 05:45 WBC RBC Hgb Hct MCV RDW Plt Count Lymph % (Auto) [place] % (Auto) [place] # Seg Neutrophils % Seg Neuts % (Manual) Lymphocytes % (Manual) Monocytes % (Manual) Basophils % (Manual) Nucleated RBC % Seg Neutrophils # Seg Neutrophils # Man Lymphocytes # (Manual) Monocytes # (Manual) Eosinophils # (Manual) Basophils # (Manual) PT 20.1 H INR 1.72 H APTT 131.1 H* Heparin Anti-Xa Level 0.18 L POC ABG pH 7.252 L POC ABG pCO2 32.0 L POC ABG pO2 Sodium Potassium Chloride 107.1 H Carbon Dioxide 17 L BUN Creatinine Glucose 284 H POC Glucose Calcium 7.2 L Phosphorus Magnesium AST Alkaline Phosphatase C-Reactive Protein Total Protein 5.5 L Albumin 2.1 L Lipase Vitamin B12 TSH Urine WBC (Auto) Urine Chloride Urine Total Protein Vancomycin Trough Crossmatch 11/18/16 11/18/16 11/18/16 05:45 09:17 12:06 WBC 13.3 H RBC 3.07 L Hgb 9.2 L Hct 29.5 L MCV RDW 16.9 H Plt Count Lymph % (Auto) 11.0 L [place] % (Auto) [place] # Seg Neutrophils % 82.9 H Seg Neuts % (Manual) Lymphocytes % (Manual) Monocytes % (Manual) Basophils % (Manual) Nucleated RBC % Seg Neutrophils # 11.0 H Seg Neutrophils # Man Lymphocytes # (Manual) Monocytes # (Manual) Eosinophils # (Manual) Basophils # (Manual) PT INR APTT Heparin Anti-Xa Level POC ABG pH POC ABG pCO2 24.3 L POC ABG pO2 79 L Sodium Potassium Chloride Carbon Dioxide BUN Creatinine Glucose POC Glucose 433 H Calcium Phosphorus Magnesium AST Alkaline Phosphatase C-Reactive Protein Total Protein Albumin Lipase Vitamin B12 TSH Urine WBC (Auto) Urine Chloride Urine Total Protein Vancomycin Trough Crossmatch 11/18/16 11/18/16 11/18/16 12:09 13:00 17:22 WBC 12.6 H RBC 2.79 L Hgb 8.6 L Hct 26.6 L MCV RDW 17.0 H Plt Count Lymph % (Auto) [place] % (Auto) [place] # Seg Neutrophils % Seg Neuts % (Manual) 90.0 H Lymphocytes % (Manual) 8.0 L Monocytes % (Manual) Basophils % (Manual) Nucleated RBC % Seg Neutrophils # Seg Neutrophils # Man 11.3 H Lymphocytes # (Manual) 1.0 L Monocytes # (Manual) Eosinophils # (Manual) Basophils # (Manual) PT INR APTT Heparin Anti-Xa Level POC ABG pH POC ABG pCO2 POC ABG pO2 Sodium Potassium Chloride Carbon Dioxide BUN Creatinine Glucose POC Glucose 429 H 297 H Calcium Phosphorus Magnesium AST Alkaline Phosphatase C-Reactive Protein Total Protein Albumin Lipase Vitamin B12 TSH Urine WBC (Auto) Urine Chloride Urine Total Protein Vancomycin Trough Crossmatch 11/18/16 11/19/16 11/19/16 23:27 04:30 04:30 WBC RBC 2.92 L Hgb 8.8 L Hct 27.0 L MCV RDW 16.6 H Plt Count Lymph % (Auto) [place] % (Auto) [place] # Seg Neutrophils % Seg Neuts % (Manual) Lymphocytes % (Manual) Monocytes % (Manual) Basophils % (Manual) Nucleated RBC % Seg Neutrophils # Seg Neutrophils # Man Lymphocytes # (Manual) Monocytes # (Manual) Eosinophils # (Manual) Basophils # (Manual) PT INR APTT Heparin Anti-Xa Level POC ABG pH POC ABG pCO2 POC ABG pO2 Sodium Potassium 3.0 L Chloride 107.9 H Carbon Dioxide 20 L BUN Creatinine Glucose 231 H POC Glucose 268 H Calcium 7.1 L Phosphorus Magnesium AST Alkaline Phosphatase C-Reactive Protein Total Protein 5.5 L Albumin 2.1 L Lipase Vitamin B12 TSH Urine WBC (Auto) Urine Chloride Urine Total Protein Vancomycin Trough Crossmatch 11/19/16 11/19/16 11/19/16 04:40 06:40 10:00 WBC RBC Hgb Hct MCV RDW Plt Count Lymph % (Auto) [place] % (Auto) [place] # Seg Neutrophils % Seg Neuts % (Manual) Lymphocytes % (Manual) Monocytes % (Manual) Basophils % (Manual) Nucleated RBC % Seg Neutrophils # Seg Neutrophils # Man Lymphocytes # (Manual) Monocytes # (Manual) Eosinophils # (Manual) Basophils # (Manual) PT INR APTT Heparin Anti-Xa Level POC ABG pH POC ABG pCO2 POC ABG pO2 Sodium Potassium Chloride Carbon Dioxide BUN Creatinine Glucose POC Glucose 267 H 244 H Calcium Phosphorus Magnesium 1.4 L AST Alkaline Phosphatase C-Reactive Protein Total Protein Albumin Lipase Vitamin B12 TSH Urine WBC (Auto) Urine Chloride Urine Total Protein Vancomycin Trough Crossmatch 11/19/16 11/19/16 11/19/16 12:08 18:10 23:40 WBC RBC Hgb Hct MCV RDW Plt Count Lymph % (Auto) [place] % (Auto) [place] # Seg Neutrophils % Seg Neuts % (Manual) Lymphocytes % (Manual) Monocytes % (Manual) Basophils % (Manual) Nucleated RBC % Seg Neutrophils # Seg Neutrophils # Man Lymphocytes # (Manual) Monocytes # (Manual) Eosinophils # (Manual) Basophils # (Manual) PT INR APTT Heparin Anti-Xa Level POC ABG pH POC ABG pCO2 POC ABG pO2 Sodium Potassium Chloride Carbon Dioxide BUN Creatinine Glucose POC Glucose 254 H 265 H 197 H Calcium Phosphorus Magnesium AST Alkaline Phosphatase C-Reactive Protein Total Protein Albumin Lipase Vitamin B12 TSH Urine WBC (Auto) Urine Chloride Urine Total Protein Vancomycin Trough Crossmatch 11/20/16 11/20/16 11/20/16 05:00 05:44 11:33 WBC RBC Hgb Hct MCV RDW Plt Count Lymph % (Auto) [place] % (Auto) [place] # Seg Neutrophils % Seg Neuts % (Manual) Lymphocytes % (Manual) Monocytes % (Manual) Basophils % (Manual) Nucleated RBC % Seg Neutrophils # Seg Neutrophils # Man Lymphocytes # (Manual) Monocytes # (Manual) Eosinophils # (Manual) Basophils # (Manual) PT INR APTT Heparin Anti-Xa Level POC ABG pH POC ABG pCO2 POC ABG pO2 Sodium Potassium 3.4 L Chloride 107.4 H Carbon Dioxide 20 L BUN Creatinine Glucose 140 H POC Glucose 163 H 108 H Calcium 7.2 L Phosphorus Magnesium AST Alkaline Phosphatase C-Reactive Protein Total Protein Albumin Lipase Vitamin B12 TSH Urine WBC (Auto) Urine Chloride Urine Total Protein Vancomycin Trough Crossmatch 11/20/16 11/20/16 11/20/16 13:03 16:45 23:26 WBC RBC Hgb Hct MCV RDW Plt Count Lymph % (Auto) [place] % (Auto) [place] # Seg Neutrophils % Seg Neuts % (Manual) Lymphocytes % (Manual) Monocytes % (Manual) Basophils % (Manual) Nucleated RBC % Seg Neutrophils # Seg Neutrophils # Man Lymphocytes # (Manual) Monocytes # (Manual) Eosinophils # (Manual) Basophils # (Manual) PT INR APTT Heparin Anti-Xa Level POC ABG pH POC ABG pCO2 POC ABG pO2 Sodium Potassium Chloride Carbon Dioxide BUN Creatinine Glucose POC Glucose 113 H 168 H Calcium Phosphorus Magnesium AST Alkaline Phosphatase C-Reactive Protein Total Protein Albumin Lipase Vitamin B12 TSH Urine WBC (Auto) Urine Chloride Urine Total Protein Vancomycin Trough 45.8 H Crossmatch 11/21/16 11/21/16 11/21/16 05:00 05:27 09:50 WBC RBC Hgb Hct MCV RDW Plt Count Lymph % (Auto) [place] % (Auto) [place] # Seg Neutrophils % Seg Neuts % (Manual) Lymphocytes % (Manual) Monocytes % (Manual) Basophils % (Manual) Nucleated RBC % Seg Neutrophils # Seg Neutrophils # Man Lymphocytes # (Manual) Monocytes # (Manual) Eosinophils # (Manual) Basophils # (Manual) PT INR APTT Heparin Anti-Xa Level POC ABG pH POC ABG pCO2 POC ABG pO2 Sodium 133 L D Potassium Chloride Carbon Dioxide 19 L BUN Creatinine Glucose 280 H POC Glucose 222 H Calcium 7.4 L Phosphorus Magnesium AST Alkaline Phosphatase C-Reactive Protein Total Protein Albumin Lipase Vitamin B12 TSH Urine WBC (Auto) Urine Chloride Urine Total Protein Vancomycin Trough 30.4 H Crossmatch Allied health notes reviewed: RT
[2016-11-21] MEDS: DURAGESIC TD SCH (16:38)
--- NOTE | 2016-11-21 17:14 | Progress Note ---
Assessment and Plan Assessment and plan: 66-year-old woman who presented with lethargy and altered mental status she deteriorated and was intubated and in emergency room, she was managed for DKA and she also developed sepsis due to UTI and right lower extremity ischemia * S/P cardiopulomary arrest. * A/C respiratory failure with hypercapenia * Seizure-Per family prior hx * acute ischemia of right lower ext due to SFA thrombosis- s/p right BKA * LUCY likely vasomotor nephropathy-resolved * Sepsis- Multifactorial * Anemia of chronic disease * Hematuria * Metabolic acidosis * Severe Hypokalemia * hypomagnesemia Plan: * s/p EEG - findings consistent with anoxic encephalopathy and cortical irritability per neurology. * Poor prognosis. * MRI brain with no gross abnormality * Highly concerning for anoxic brain injury. Await final input from neurology. * Neurologic input noted. EEG abnormal. * Replace potassium and magnessium * Heparin had to be held due to the risk associated considering recent CPR with chest compressions. * Patient remains at risk for right BKA remains poor prognosis and likely will need a conversion to AKA. Holding off heparin which is necessary at this time also worsens that prescription. * Continue subcutaneous insulin and electrolyte replacement * Patient unfortunately has poor prognosis has been unable to be weaned from the vent prior to the cardiopulmonary arrest was doing well on spontaneous breathing and event. * Antibiotics per ID. FLAGY ADDED * Continue Cardizem and beta juan antonio * Monitor electrolytes and hemoglobin. * continue dilantin * DVT and GI prophylaxis * AWAITING TO DISCUSS WITH FAMILY 35 mins critical care time. History Interval history: Patient seen and examined, still unresponsive with non purposeful movements. continues on full ventilatory support, no family at bedside Hospitalist Physical - Physical exam Narrative exam: VITAL SIGNS: Reviewed. GENERAL: vent support Vital signs as documented. HEAD: No signs of head trauma. EYES: Pupils are equal. Extraocular motions intact. EARS: Hearing grossly intact. MOUTH: missing dentition NECK: Trach CHEST: Chest with diminshed CARDIAC: Regular rate and rhythm. S1 and S2, without murmurs, gallops, or rubs. VASCULAR: trace Edema. Peripheral pulses left lower ext ABDOMEN: Soft, distended, tender. No rebound or guarding, and no masses palpated. Bowel Sounds normal. MUSCULOSKELETAL: BKA right lower extremity dressing in place. Some necrosis to the lateral aspect. NEUROLOGIC EXAM: not following commands, opens and closes eyes none purposeful PSYCHIATRIC: unable to assess SKIN: dressing to right lower ext stump, superficial necrosis - Constitutional Vitals: Temp Pulse Resp BP Pulse Ox 98.6 F 108 H 27 H 155/70 100 11/21/16 08:00 11/21/16 12:57 11/21/16 11:00 11/21/16 12:57 11/21/16 12:10 General appearance: Present: no acute distress Results - Labs CBC & Chem 7: 11/19/16 04:30 11/21/16 05:00 Labs: Laboratory Last Values WBC 10.8 K/mm3 (4.5-11.0) 11/19/16 04:30 RBC 2.92 M/mm3 (3.65-5.03) L 11/19/16 04:30 Hgb 8.8 gm/dl (10.1-14.3) L 11/19/16 04:30 Hct 27.0 % (30.3-42.9) L 11/19/16 04:30 MCV 93 fl (79-97) 11/19/16 04:30 MCH 30 pg (28-32) 11/19/16 04:30 MCHC 33 % (30-34) 11/19/16 04:30 RDW 16.6 % (13.2-15.2) H 11/19/16 04:30 Plt Count 390 K/mm3 (140-440) 11/19/16 04:30 Lymph % (Auto) 11.0 % (13.4-35.0) L 11/18/16 05:45 [place] % (Auto) 4.8 % (0.0-7.3) 11/18/16 05:45 Eos % (Auto) 1.0 % (0.0-4.3) 11/18/16 05:45 Baso % (Auto) 0.3 % (0.0-1.8) 11/18/16 05:45 Lymph # 1.5 K/mm3 (1.2-5.4) 11/18/16 05:45 [place] # 0.6 K/mm3 (0.0-0.8) 11/18/16 05:45 Eos # 0.1 K/mm3 (0.0-0.4) 11/18/16 05:45 Baso # 0.0 K/mm3 (0.0-0.1) 11/18/16 05:45 Add Manual Diff Complete 11/18/16 13:00 Total Counted 100 11/18/16 13:00 Seg Neutrophils % 82.9 % (40.0-70.0) H 11/18/16 05:45 Seg Neuts % (Manual) 90.0 % (40.0-70.0) H 11/18/16 13:00 Band Neutrophils % 0 % 11/18/16 13:00 Lymphocytes % (Manual) 8.0 % (13.4-35.0) L 11/18/16 13:00 Reactive Lymphs % (Man) 0 % 11/18/16 13:00 Monocytes % (Manual) 2.0 % (0.0-7.3) 11/18/16 13:00 Eosinophils % (Manual) 0 % (0.0-4.3) 11/18/16 13:00 Basophils % (Manual) 0 % (0.0-1.8) 11/18/16 13:00 Metamyelocytes % 0 % 11/18/16 13:00 Myelocytes % 0 % 11/18/16 13:00 Promyelocytes % 0 % 11/18/16 13:00 Blast Cells % 0 % 11/18/16 13:00 Nucleated RBC % Not Reportable 11/18/16 13:00 Seg Neutrophils # 11.0 K/mm3 (1.8-7.7) H 11/18/16 05:45 Seg Neutrophils # Man 11.3 K/mm3 (1.8-7.7) H 11/18/16 13:00 Band Neutrophils # 0.0 K/mm3 11/18/16 13:00 Lymphocytes # (Manual) 1.0 K/mm3 (1.2-5.4) L 11/18/16 13:00 Abs React Lymphs (Man) 0.0 K/mm3 11/18/16 13:00 Monocytes # (Manual) 0.3 K/mm3 (0.0-0.8) 11/18/16 13:00 Eosinophils # (Manual) 0.0 K/mm3 (0.0-0.4) 11/18/16 13:00 Basophils # (Manual) 0.0 K/mm3 (0.0-0.1) 11/18/16 13:00 Metamyelocytes # 0.0 K/mm3 11/18/16 13:00 Myelocytes # 0.0 K/mm3 11/18/16 13:00 Promyelocytes # 0.0 K/mm3 11/18/16 13:00 Blast Cells # 0.0 K/mm3 11/18/16 13:00 Pathologist Review 10/29/16 09:30 WBC Morphology Not Reportable 11/18/16 13:00 Hypersegmented Neuts Not Reportable 11/18/16 13:00 Hyposegmented Neuts Not Reportable 11/18/16 13:00 Hypogranular Neuts Not Reportable 11/18/16 13:00 Hypersegmented Polys TNR 10/17/16 07:08 Smudge Cells Not Reportable 11/18/16 13:00 Toxic Granulation Not Reportable 11/18/16 13:00 Toxic Vacuolation Not Reportable 11/18/16 13:00 Dohle Bodies Not Reportable 11/18/16 13:00 Pelger-Huet Anomaly Not Reportable 11/18/16 13:00 [place] Rods Not Reportable 11/18/16 13:00 Platelet Estimate Consistent w auto 11/18/16 13:00 Clumped Platelets Not Reportable 11/18/16 13:00 Plt Clumps, EDTA Not Reportable 11/18/16 13:00 Large Platelets Not Reportable 11/18/16 13:00 Giant Platelets Not Reportable 11/18/16 13:00 Platelet Satelliting Not Reportable 11/18/16 13:00 Plt Morphology Comment Not Reportable 11/18/16 13:00 RBC Morphology Not Reportable 11/18/16 13:00 Dimorphic RBCs Not Reportable 11/18/16 13:00 Polychromasia Not Reportable 11/18/16 13:00 Hypochromasia Not Reportable 11/18/16 13:00 Poikilocytosis Not Reportable 11/18/16 13:00 Basophilic Stippling TNR 10/17/16 07:08 Anisocytosis 1+ 11/18/16 13:00 Microcytosis Not Reportable 11/18/16 13:00 Macrocytosis Not Reportable 11/18/16 13:00 Spherocytes Not Reportable 11/18/16 13:00 Pappenheimer Bodies Not Reportable 11/18/16 13:00 Sickle Cells Not Reportable 11/18/16 13:00 Target Cells Not Reportable 11/18/16 13:00 Tear Drop Cells Not Reportable 11/18/16 13:00 Ovalocytes Not Reportable 11/18/16 13:00 Stomatocytes Few 11/03/16 00:05 Helmet Cells Not Reportable 11/18/16 13:00 [place] Bodies Not Reportable 11/18/16 13:00 [place] Rings Not Reportable 11/18/16 13:00 Jeannette Cells Not Reportable 11/18/16 13:00 Bite Cells Not Reportable 11/18/16 13:00 Crenated Cell Not Reportable 11/18/16 13:00 Elliptocytes Not Reportable 11/18/16 13:00 Acanthocytes (Spur) Not Reportable 11/18/16 13:00 Rouleaux Not Reportable 11/18/16 13:00 Hemoglobin C Crystals Not Reportable 11/18/16 13:00 Schistocytes Not Reportable 11/18/16 13:00 Malaria parasites Not Reportable 11/18/16 13:00 David Bodies Not Reportable 11/18/16 13:00 Hem Pathologist Commnt No 11/18/16 13:00 PT 20.1 Sec. (12.2-14.9) H 11/18/16 05:45 INR 1.72 (0.87-1.13) H 11/18/16 05:45 APTT 131.1 Sec. (24.2-36.6) H* 11/18/16 05:45 Heparin Anti-Xa Level 0.51 U.I./ml (0.3-0.7) 11/18/16 11:16 POC ABG pH 7.434 (7.35-7.45) 11/18/16 09:17 POC ABG pCO2 24.3 (35-45) L 11/18/16 09:17 POC ABG pO2 79 (80-105) L 11/18/16 09:17 POC ABG HCO3 16.3 11/18/16 09:17 POC ABG Total CO2 17 11/18/16 09:17 POC ABG O2 Sat 96 11/18/16 09:17 POC ABG Base Excess -8 11/18/16 09:17 VBG pH 7.020 (7.320-7.420) L* 10/13/16 04:22 FiO2 50 % 11/18/16 09:17 Sodium 133 mmol/L (137-145) L D 11/21/16 05:00 Potassium 4.5 mmol/L (3.6-5.0) D 11/21/16 05:00 Chloride 101.9 mmol/L (98-107) 11/21/16 05:00 Carbon Dioxide 19 mmol/L (22-30) L 11/21/16 05:00 Anion Gap 17 mmol/L 11/21/16 05:00 BUN 15 mg/dL (7-17) 11/21/16 05:00 Creatinine 1.0 mg/dL (0.7-1.2) 11/21/16 05:00 Estimated GFR > 60 ml/min 11/21/16 05:00 BUN/Creatinine Ratio 15.00 % 11/21/16 05:00 Glucose 280 mg/dL (65-100) H 11/21/16 05:00 POC Glucose 222 (70-105) H 11/21/16 05:27 Osmolality 332 Mosm/kg 10/14/16 07:03 Lactic Acid 1.8 mmol/L (0.7-2.0) 10/14/16 07:03 Calcium 7.4 mg/dL (8.4-10.2) L 11/21/16 05:00 Phosphorus 2.7 mg/dL (2.5-4.5) D 10/21/16 Unknown Magnesium 2.0 mg/dL (1.7-2.3) 11/20/16 05:00 Total Bilirubin 0.2 mg/dL (0.1-1.2) 11/19/16 04:30 AST 9 units/L (5-40) 11/19/16 04:30 ALT 7 units/L (7-56) 11/19/16 04:30 Alkaline Phosphatase 82 units/L (35-129) 11/19/16 04:30 Ammonia 35.0 umol/L (25-60) 10/13/16 05:40 Total Creatine Kinase 107 units/L (30-135) 10/13/16 04:22 CK-MB (CK-2) 3.1 ng/mL (0.0-4.0) 10/13/16 04:22 CK-MB (CK-2) Rel Index 2.8 (0-4) 10/13/16 04:22 Troponin T < 0.010 ng/mL (0.00-0.029) 10/14/16 18:55 C-Reactive Protein 10.50 mg/dL (0.00-1.30) H 10/13/16 16:14 Total Protein 5.5 g/dL (6.3-8.2) L 11/19/16 04:30 Albumin 2.1 g/dL (3.9-5) L 11/19/16 04:30 Albumin/Globulin Ratio 0.6 % 11/19/16 04:30 Amylase 30 units/L (27-131) 11/10/16 04:30 Lipase 41 units/L (13-60) 11/10/16 04:30 Vitamin B12 976.8 pg/mL (211-911) H 10/22/16 10:25 TSH 0.162 mlU/mL (0.270-4.200) L 10/22/16 14:50 Free T4 0.77 ng/dL (0.76-1.46) 10/22/16 14:50 Urine Color Yellow (Yellow) 11/14/16 19:39 Urine Turbidity Cloudy (Clear) 11/14/16 19:39 Urine pH 6.0 (5.0-7.0) 11/14/16 19:39 Ur Specific [place] 1.010 (1.003-1.030) 11/14/16 19:39 Urine Protein 30 mg/dl mg/dL (Negative) 11/14/16 19:39 Urine Glucose (UA) 50 mg/dL (Negative) 11/14/16 19:39 Urine Ketones 20 mg/dL (Negative) 11/14/16 19:39 Urine Blood Lg (Negative) 11/14/16 19:39 Urine Nitrite Neg (Negative) 11/14/16 19:39 Urine Bilirubin Neg (Negative) 11/14/16 19:39 Urine Urobilinogen < 2.0 mg/dL (<2.0) 11/14/16 19:39 Ur Leukocyte Esterase Sm (Negative) 11/14/16 19:39 Urine WBC (Auto) 3.0 /HPF (0.0-6.0) 11/14/16 19:39 Urine RBC (Auto) > 182.0 /HPF (0.0-6.0) 11/14/16 19:39 U Epithel Cells (Auto) 1.0 /HPF (0-13.0) 10/15/16 11:05 Urine Bacteria (Auto) 1+ /HPF (Negative) 11/14/16 19:39 Urine Mucus Few /HPF 11/14/16 19:39 Urine Yeast (Budding) 2+ /HPF 10/15/16 11:05 Urine Osmolality 487 Mosm/kg 10/13/16 Unknown Urine Creatinine < 4.2 mg/dL (0.1-20.0) 10/13/16 Unknown Protein/Creatinin Ratio 0.00 10/13/16 Unknown Urine Sodium 10 mEq/L 10/13/16 Unknown Urine Potassium 1.00 mEq/L 10/13/16 Unknown Urine Chloride 10.0 mEq/L (110-250) L 10/13/16 Unknown Urine Total Protein < 4 mg/dL (5-11.8) L 10/13/16 Unknown Vancomycin Trough 30.4 ug/mL (5.0-20.0) H 11/21/16 09:50 Random Vancomycin 19.4 ug/mL (0-40.0) 11/11/16 06:15 Ketones 107.3 mg/dL (0.2-2.8) H 10/13/16 04:22 Blood Type A POSITIVE 11/03/16 18:01 Antibody Screen Negative 11/03/16 18:01 Crossmatch See Detail 11/03/16 18:01
[2016-11-21] MEDS: LOPRESSOR FEEDTUBE SCH (20:47)
[2016-11-22] MEDS: REGLAN IV SCH ×4 (06:41→23:42)
[2016-11-22] MEDS: LOPRESSOR PO SCH ×4 (06:41→23:42)
[2016-11-22] MEDS: DILANTIN IV SCH ×3 (06:41→21:02)
[2016-11-22] MEDS: TYLENOL PO PRN ×2 (06:42→20:49)
[2016-11-22] MEDS: HEPARIN SUB-Q SCH ×3 (06:43→21:03)
[2016-11-22] MEDS: FLAGYL 500 MG/100 ML 500 MG/100 ML BAG IV SCH ×3 (08:19→23:51)
--- NOTE | 2016-11-22 08:21 | XRay Report ---
AP chest x-ray. History: Followup study. Findings: The previous study of November 20, there has been no significant interval change in the pulmonary edema pattern. Tracheostomy tube is in satisfactory position. No new findings are seen.
[2016-11-22] MEDS: LEVEMIR SUB-Q SCH (09:44)
[2016-11-22] MEDS: PEPCID PO SCH ×2 (09:44→21:02)
[2016-11-22] MEDS: PLAVIX PO SCH (09:44)
[2016-11-22] MEDS: LEVAQUIN 750MG/150ML 750 MG/150 ML BAG IV SCH (09:45)
--- NOTE | 2016-11-22 10:32 | Progress Note ---
Assessment and Plan s/p EEG - findings consistent with anoxic encephalopathy and cortical irritability per neurology. Await final decisions regarding codes status/end-of life goals/plan of care per family. Currently stable cardiac status. Cont current medical management. Prognosis is guarded. Will see PRN. The patient has been seen in conjunction with Dr. Lama who agrees with the assessment and plan of care. - Patient Problems (1) Cardiac arrest Current Visit: Yes Status: Resolved (2) Sinus tachycardia Current Visit: Yes Status: Acute (3) Acute respiratory failure with hypercapnia Current Visit: Yes Status: Acute (4) Sepsis Current Visit: Yes Status: Acute Qualifiers: Sepsis type: S (5) PVD (peripheral vascular disease) Current Visit: Yes Status: Chronic (6) S/P BKA (below knee amputation) Current Visit: Yes Status: Chronic Qualifiers: Laterality: L (7) DVT (deep venous thrombosis) Current Visit: Yes Status: Acute Qualifiers: DVT location: D Affected thrombotic vein of extremity: A Laterality: L Chronicity: C (8) Anemia Current Visit: Yes Status: Acute Qualifiers: Anemia type: A Iron deficiency anemia type: I Vitamin B12 deficiency anemia type: V Folate deficiency anemia type: F Bone marrow failure anemia type: B Hemolytic anemia type: H Other causes of anemia: O (9) Diabetes Current Visit: Yes Status: Chronic Qualifiers: Diabetes mellitus type: D Diabetes mellitus complication status: D Diabetes mellitus complication detail: D Diabetic retinopathy severity: D Proliferative retinopathy type: P Diabetes mellitus macular edema: D Diabetes mellitus exterminator helper insulin use: D Laterality: L Chronic kidney disease stage: C Subjective Date of service: 11/22/16 Principal diagnosis: respiratory failure on mechanical ventilatory support, DKA Interval history: remains trached, on vent. In SR on tele, HR 70s - 80s, BPs stable, off pressors. Objective Last Vital Signs Temp 100.7 F H 11/22/16 07:36 Pulse 79 11/22/16 09:00 Resp 23 11/22/16 09:00 BP 100/52 11/22/16 09:00 Pulse Ox 100 11/22/16 09:00 - Physical Examination General: No Apparent Distress HEENT: Positive: Normocephaly, Mucus Membranes Moist Neck: Positive: neck supple, trachea midline, Other (trach) Cardiac: Positive: Reg Rate and Rhythm, S1/S2 Lungs: Positive: Ventilated Respirations, Other (trached) Neuro: Positive: Other (DARRIAN; no purposeful movements noted) Abdomen: Positive: Soft. Negative: Tender Skin: Positive: Clear. Negative: Rash Musculoskeletal: other (right below-knee amputation left leg no edema) Extremities: Present: Other (right below-knee amputation left leg no edema) - Imaging and Cardiology Echo: report reviewed (tds 10/24/2016 normal LV function with no significant regurgitations) - Telemetry EKG Rhythm: Sinus Rhythm - Allied health notes Allied health notes reviewed: RT
--- NOTE | 2016-11-22 11:11 | Progress Note ---
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 weaning likelyhood even poorer - continue PSV trial at 20/5 and get ABG after 2 hrs if tolerates that long - rest on AC qhs during wean (2) Altered mental status Current Visit: Yes Status: Acute Qualifiers: Altered mental status type: A Coma depth: C Coma timing: C Plan to address problem: - likely anoxic encephalopathy at this point - no active grand-mal seizures - seen by neurology and will follow their recommendations - reviewed EEG and MRI reports and appears overall prognosis guarded at best (3) LUCY (acute kidney injury) Current Visit: Yes Status: Acute Plan to address problem: - resolved - following I's & O's - short course of lasix re: pulmonary edema - tube feeds restarted and tolerating well so far (4) DKA (diabetic ketoacidoses) Current Visit: Yes Status: Acute Qualifiers: Diabetes mellitus type: D Diabetes mellitus complication detail: D Plan to address problem: - resolved - continue SSI - continue levemir at 10u sq daily (5) Sepsis Current Visit: No Status: Acute Qualifiers: Sepsis type: S Plan to address problem: - complete anti-infectives per ID recs - follow clinically - trend lactate and CRP prn (6) Emesis Current Visit: Yes Status: Acute Qualifiers: Vomiting type: V Vomiting Intractability: V Nausea presence: N Plan to address problem: - continue increased reglan dose - reduced fentanyl dose and using other sedatives/anxiolytics (re: opiates and G.I. motility) - continue aspiration precautions - GI input appreciated - improved (7) Discharge planning issues Current Visit: No Status: Acute Plan to address problem: - cardiac arrest and potential anoxic encephalopathy makes prognosis more guarded now - LTAC evaluation ongoing ...for now remains critically ill on life sustaining treatments including MVS and at high risk for further deterioration including ...33' CCT Subjective Date of service: 11/22/16 Principal diagnosis: respiratory failure on mechanical ventilatory support, DKA Interval history: Seen and examined at bedside; 24 hour events reviewed; nursing and respiratory care staff consulted; no adverse overnight events reported to me; placed on PSV but at Psupp of [id number] and tolerating tenuously; AMS is persistent Objective Vital Signs - 12hr 11/21/16 11/21/16 11/21/16 23:26 23:27 23:30 Temperature Pulse Rate 99 H 96 H Pulse Rate [ From Monitor] Respiratory 35 H 34 H Rate Blood Pressure 129/64 124/66 O2 Sat by Pulse 100 Oximetry O2 Sat by Pulse Oximetry [ Assessment] 11/21/16 11/21/16 11/22/16 23:38 23:48 00:00 Temperature 102 F H 102 F H Pulse Rate 94 H Pulse Rate [ 94 H From Monitor] Respiratory 31 H Rate Blood Pressure 120/70 O2 Sat by Pulse 100 Oximetry O2 Sat by Pulse Oximetry [ Assessment] 11/22/16 11/22/16 11/22/16 00:30 00:42 01:00 Temperature Pulse Rate 85 Pulse Rate [ From Monitor] Respiratory Rate Blood Pressure 112/52 112/52 110/56 O2 Sat by Pulse 100 100 100 Oximetry O2 Sat by Pulse 100 Oximetry [ Assessment] 11/22/16 11/22/16 11/22/16 01:30 02:00 02:30 Temperature Pulse Rate 83 87 85 Pulse Rate [ From Monitor] Respiratory 22 31 H 21 Rate Blood Pressure 104/52 112/61 117/59 O2 Sat by Pulse 100 100 100 Oximetry O2 Sat by Pulse Oximetry [ Assessment] 11/22/16 11/22/16 11/22/16 03:00 03:30 04:00 Temperature Pulse Rate 86 87 90 Pulse Rate [ 87 From Monitor] Respiratory 30 H 18 30 H Rate Blood Pressure 119/65 119/61 127/67 O2 Sat by Pulse 100 100 100 Oximetry O2 Sat by Pulse Oximetry [ Assessment] 11/22/16 11/22/16 11/22/16 04:30 05:00 05:30 Temperature Pulse Rate 89 89 99 H Pulse Rate [ From Monitor] Respiratory 29 H 17 33 H Rate Blood Pressure 121/59 128/62 139/88 O2 Sat by Pulse 100 100 100 Oximetry O2 Sat by Pulse Oximetry [ Assessment] 11/22/16 11/22/16 11/22/16 06:00 06:30 06:41 Temperature Pulse Rate 102 H 94 H 96 H Pulse Rate [ From Monitor] Respiratory 35 H 16 Rate Blood Pressure 139/88 131/89 131/89 O2 Sat by Pulse 98 100 Oximetry O2 Sat by Pulse Oximetry [ Assessment] 11/22/16 11/22/16 11/22/16 06:42 07:00 07:30 Temperature Pulse Rate 95 H 83 Pulse Rate [ From Monitor] Respiratory 36 H 19 21 Rate Blood Pressure 131/59 131/59 O2 Sat by Pulse 96 100 Oximetry O2 Sat by Pulse Oximetry [ Assessment] 11/22/16 11/22/16 11/22/16 07:36 08:00 08:10 Temperature 100.7 F H Pulse Rate 81 Pulse Rate [ 79 From Monitor] Respiratory 29 H 26 H Rate Blood Pressure 100/51 O2 Sat by Pulse 100 100 Oximetry O2 Sat by Pulse Oximetry [ Assessment] 11/22/16 11/22/16 11/22/16 08:24 08:30 09:00 Temperature Pulse Rate 79 80 79 Pulse Rate [ From Monitor] Respiratory 25 H 23 Rate Blood Pressure 100/51 97/50 100/52 O2 Sat by Pulse 100 100 Oximetry O2 Sat by Pulse Oximetry [ Assessment] Constitutional: other (Patient S/P CPR. Patient likely has anoxic encephalopathy ) Eyes: non-icteric ENT: oropharynx moist Neck: supple, no lymphadenopathy Effort: mildly labored Ascultation: Bilateral: diminished breath sounds, rales Cardiovascular: regular rate and rhythm, other (tachycardia) Gastrointestinal: normoactive bowel sounds, soft, non-tender, non-distended Integumentary: normal Extremities: no cyanosis, no edema, no ischemia or petechiae, other (s/p right BKA) Neurologic: unable to assess, other (encephalopathic) Psychiatric: other (encephalopathic) CBC and BMP: 11/23/16 08:20 11/22/16 11:50 ABG, PT/INR, D-dimer: ABG POC ABG pH 7.434 (7.35-7.45) 11/18/16 09:17 POC ABG pCO2 24.3 (35-45) L 11/18/16 09:17 POC ABG pO2 79 (80-105) L 11/18/16 09:17 POC ABG HCO3 16.3 11/18/16 09:17 POC ABG Total CO2 17 11/18/16 09:17 POC ABG O2 Sat 96 11/18/16 09:17 PT/INR, D-dimer PT 20.1 Sec. (12.2-14.9) H 11/18/16 05:45 INR 1.72 (0.87-1.13) H 11/18/16 05:45 Abnormal lab findings: Abnormal Labs 10/13/16 10/13/16 10/13/16 06:38 06:38 07:23 WBC RBC Hgb Hct MCV RDW Plt Count Lymph % (Auto) [place] % (Auto) [place] # Seg Neutrophils % Seg Neuts % (Manual) Lymphocytes % (Manual) Monocytes % (Manual) Basophils % (Manual) Nucleated RBC % Seg Neutrophils # Seg Neutrophils # Man Lymphocytes # (Manual) Monocytes # (Manual) Eosinophils # (Manual) Basophils # (Manual) PT INR APTT Heparin Anti-Xa Level POC ABG pH POC ABG pCO2 POC ABG pO2 Sodium Potassium 6.2 H* Chloride Carbon Dioxide 8 L* BUN 85 H Creatinine 2.8 H Glucose 602 H* POC Glucose 495 H Calcium 7.9 L Phosphorus 6.9 H D Magnesium 3.0 H AST Alkaline Phosphatase C-Reactive Protein Total Protein Albumin Lipase Vitamin B12 TSH Urine WBC (Auto) Urine Chloride Urine Total Protein Vancomycin Trough Crossmatch 10/13/16 10/13/16 10/13/16 08:49 08:55 10:12 WBC RBC Hgb Hct MCV RDW Plt Count Lymph % (Auto) [place] % (Auto) [place] # Seg Neutrophils % Seg Neuts % (Manual) Lymphocytes % (Manual) Monocytes % (Manual) Basophils % (Manual) Nucleated RBC % Seg Neutrophils # Seg Neutrophils # Man Lymphocytes # (Manual) Monocytes # (Manual) Eosinophils # (Manual) Basophils # (Manual) PT INR APTT Heparin Anti-Xa Level POC ABG pH POC ABG pCO2 POC ABG pO2 Sodium Potassium 5.6 H Chloride Carbon Dioxide 11 L BUN 77 H Creatinine 2.7 H Glucose 457 H POC Glucose > 500 H 424 H Calcium 8.0 L Phosphorus Magnesium AST Alkaline Phosphatase C-Reactive Protein Total Protein Albumin Lipase Vitamin B12 TSH Urine WBC (Auto) Urine Chloride Urine Total Protein Vancomycin Trough Crossmatch 10/13/16 10/13/16 10/13/16 10:44 11:22 12:20 WBC RBC Hgb Hct MCV RDW Plt Count Lymph % (Auto) [place] % (Auto) [place] # Seg Neutrophils % Seg Neuts % (Manual) Lymphocytes % (Manual) Monocytes % (Manual) Basophils % (Manual) Nucleated RBC % Seg Neutrophils # Seg Neutrophils # Man Lymphocytes # (Manual) Monocytes # (Manual) Eosinophils # (Manual) Basophils # (Manual) PT INR APTT Heparin Anti-Xa Level POC ABG pH POC ABG pCO2 POC ABG pO2 Sodium Potassium 5.4 H Chloride Carbon Dioxide 14 L BUN 72 H Creatinine 2.6 H Glucose 383 H POC Glucose 391 H 313 H Calcium 8.2 L Phosphorus Magnesium AST Alkaline Phosphatase C-Reactive Protein Total Protein Albumin Lipase Vitamin B12 TSH Urine WBC (Auto) Urine Chloride Urine Total Protein Vancomycin Trough Crossmatch 10/13/16 10/13/16 10/13/16 13:32 14:44 15:57 WBC RBC Hgb Hct MCV RDW Plt Count Lymph % (Auto) [place] % (Auto) [place] # Seg Neutrophils % Seg Neuts % (Manual) Lymphocytes % (Manual) Monocytes % (Manual) Basophils % (Manual) Nucleated RBC % Seg Neutrophils # Seg Neutrophils # Man Lymphocytes # (Manual) Monocytes # (Manual) Eosinophils # (Manual) Basophils # (Manual) PT INR APTT Heparin Anti-Xa Level POC ABG pH POC ABG pCO2 POC ABG pO2 Sodium Potassium Chloride Carbon Dioxide BUN Creatinine Glucose POC Glucose 296 H 210 H 190 H Calcium Phosphorus Magnesium AST Alkaline Phosphatase C-Reactive Protein Total Protein Albumin Lipase Vitamin B12 TSH Urine WBC (Auto) Urine Chloride Urine Total Protein Vancomycin Trough Crossmatch 10/13/16 10/13/16 10/13/16 16:14 16:14 17:17 WBC RBC Hgb Hct MCV RDW Plt Count Lymph % (Auto) [place] % (Auto) [place] # Seg Neutrophils % Seg Neuts % (Manual) Lymphocytes % (Manual) Monocytes % (Manual) Basophils % (Manual) Nucleated RBC % Seg Neutrophils # Seg Neutrophils # Man Lymphocytes # (Manual) Monocytes # (Manual) Eosinophils # (Manual) Basophils # (Manual) PT INR APTT Heparin Anti-Xa Level POC ABG pH POC ABG pCO2 POC ABG pO2 Sodium Potassium Chloride Carbon Dioxide 17 L BUN 58 H Creatinine 1.8 H Glucose 172 H POC Glucose 193 H Calcium 7.7 L Phosphorus Magnesium AST Alkaline Phosphatase C-Reactive Protein 10.50 H Total Protein Albumin Lipase Vitamin B12 TSH Urine WBC (Auto) Urine Chloride Urine Total Protein Vancomycin Trough Crossmatch 10/13/16 10/13/16 10/13/16 17:55 18:32 19:41 WBC RBC Hgb Hct MCV RDW Plt Count Lymph % (Auto) [place] % (Auto) [place] # Seg Neutrophils % Seg Neuts % (Manual) Lymphocytes % (Manual) Monocytes % (Manual) Basophils % (Manual) Nucleated RBC % Seg Neutrophils # Seg Neutrophils # Man Lymphocytes # (Manual) Monocytes # (Manual) Eosinophils # (Manual) Basophils # (Manual) PT INR APTT Heparin Anti-Xa Level POC ABG pH POC ABG pCO2 30.6 L POC ABG pO2 218 H Sodium Potassium Chloride Carbon Dioxide BUN Creatinine Glucose POC Glucose 192 H 177 H Calcium Phosphorus Magnesium AST Alkaline Phosphatase C-Reactive Protein Total Protein Albumin Lipase Vitamin B12 TSH Urine WBC (Auto) Urine Chloride Urine Total Protein Vancomycin Trough Crossmatch 10/13/16 10/13/16 10/13/16 20:54 22:07 23:13 WBC RBC Hgb Hct MCV RDW Plt Count Lymph % (Auto) [place] % (Auto) [place] # Seg Neutrophils % Seg Neuts % (Manual) Lymphocytes % (Manual) Monocytes % (Manual) Basophils % (Manual) Nucleated RBC % Seg Neutrophils # Seg Neutrophils # Man Lymphocytes # (Manual) Monocytes # (Manual) Eosinophils # (Manual) Basophils # (Manual) PT INR APTT Heparin Anti-Xa Level POC ABG pH POC ABG pCO2 POC ABG pO2 Sodium Potassium Chloride Carbon Dioxide BUN Creatinine Glucose POC Glucose 178 H 160 H 168 H Calcium Phosphorus Magnesium AST Alkaline Phosphatase C-Reactive Protein Total Protein Albumin Lipase Vitamin B12 TSH Urine WBC (Auto) Urine Chloride Urine Total Protein Vancomycin Trough Crossmatch 10/13/16 10/13/16 10/14/16 23:25 Unknown 00:21 WBC RBC Hgb Hct MCV RDW Plt Count Lymph % (Auto) [place] % (Auto) [place] # Seg Neutrophils % Seg Neuts % (Manual) Lymphocytes % (Manual) Monocytes % (Manual) Basophils % (Manual) Nucleated RBC % Seg Neutrophils # Seg Neutrophils # Man Lymphocytes # (Manual) Monocytes # (Manual) Eosinophils # (Manual) Basophils # (Manual) PT INR APTT Heparin Anti-Xa Level POC ABG pH POC ABG pCO2 POC ABG pO2 Sodium 148 H Potassium Chloride 114.6 H Carbon Dioxide 17 L BUN 56 H Creatinine 1.6 H Glucose 151 H POC Glucose 171 H Calcium 7.8 L Phosphorus Magnesium AST Alkaline Phosphatase C-Reactive Protein Total Protein Albumin Lipase Vitamin B12 TSH Urine WBC (Auto) Urine Chloride 10.0 L Urine Total Protein < 4 L Vancomycin Trough Crossmatch 10/14/16 10/14/16 10/14/16 01:22 02:29 03:30 WBC RBC Hgb Hct MCV RDW Plt Count Lymph % (Auto) [place] % (Auto) [place] # Seg Neutrophils % Seg Neuts % (Manual) Lymphocytes % (Manual) Monocytes % (Manual) Basophils % (Manual) Nucleated RBC % Seg Neutrophils # Seg Neutrophils # Man Lymphocytes # (Manual) Monocytes # (Manual) Eosinophils # (Manual) Basophils # (Manual) PT INR APTT Heparin Anti-Xa Level POC ABG pH POC ABG pCO2 POC ABG pO2 Sodium Potassium Chloride Carbon Dioxide BUN Creatinine Glucose POC Glucose 144 H 136 H 143 H Calcium Phosphorus Magnesium AST Alkaline Phosphatase C-Reactive Protein Total Protein Albumin Lipase Vitamin B12 TSH Urine WBC (Auto) Urine Chloride Urine Total Protein Vancomycin Trough Crossmatch 10/14/16 10/14/16 10/14/16 04:28 05:16 05:44 WBC RBC Hgb Hct MCV RDW Plt Count Lymph % (Auto) [place] % (Auto) [place] # Seg Neutrophils % Seg Neuts % (Manual) Lymphocytes % (Manual) Monocytes % (Manual) Basophils % (Manual) Nucleated RBC % Seg Neutrophils # Seg Neutrophils # Man Lymphocytes # (Manual) Monocytes # (Manual) Eosinophils # (Manual) Basophils # (Manual) PT INR APTT Heparin Anti-Xa Level POC ABG pH POC ABG pCO2 28.2 L POC ABG pO2 125 H Sodium Potassium Chloride Carbon Dioxide BUN Creatinine Glucose POC Glucose 133 H 160 H Calcium Phosphorus Magnesium AST Alkaline Phosphatase C-Reactive Protein Total Protein Albumin Lipase Vitamin B12 TSH Urine WBC (Auto) Urine Chloride Urine Total Protein Vancomycin Trough Crossmatch 10/14/16 10/14/16 10/14/16 06:12 06:45 07:03 WBC RBC Hgb Hct MCV RDW Plt Count Lymph % (Auto) [place] % (Auto) [place] # Seg Neutrophils % Seg Neuts % (Manual) Lymphocytes % (Manual) Monocytes % (Manual) Basophils % (Manual) Nucleated RBC % Seg Neutrophils # Seg Neutrophils # Man Lymphocytes # (Manual) Monocytes # (Manual) Eosinophils # (Manual) Basophils # (Manual) PT INR APTT Heparin Anti-Xa Level POC ABG pH POC ABG pCO2 POC ABG pO2 Sodium 149 H Potassium Chloride 115.4 H Carbon Dioxide 17 L BUN 45 H Creatinine 1.5 H Glucose 139 H POC Glucose 149 H Calcium 7.4 L Phosphorus 1.0 L D Magnesium AST Alkaline Phosphatase C-Reactive Protein Total Protein Albumin Lipase Vitamin B12 TSH Urine WBC (Auto) Urine Chloride Urine Total Protein Vancomycin Trough Crossmatch 10/14/16 10/14/16 10/14/16 07:03 08:02 09:16 WBC RBC Hgb Hct MCV RDW Plt Count Lymph % (Auto) [place] % (Auto) [place] # Seg Neutrophils % Seg Neuts % (Manual) Lymphocytes % (Manual) Monocytes % (Manual) Basophils % (Manual) Nucleated RBC % Seg Neutrophils # Seg Neutrophils # Man Lymphocytes # (Manual) Monocytes # (Manual) Eosinophils # (Manual) Basophils # (Manual) PT INR APTT Heparin Anti-Xa Level POC ABG pH POC ABG pCO2 POC ABG pO2 Sodium Potassium Chloride Carbon Dioxide BUN Creatinine Glucose POC Glucose 156 H 158 H Calcium Phosphorus Magnesium AST Alkaline Phosphatase C-Reactive Protein Total Protein Albumin Lipase 738 H Vitamin B12 TSH Urine WBC (Auto) Urine Chloride Urine Total Protein Vancomycin Trough Crossmatch 10/14/16 10/14/16 10/14/16 10:26 11:03 11:57 WBC RBC Hgb Hct MCV RDW Plt Count Lymph % (Auto) [place] % (Auto) [place] # Seg Neutrophils % Seg Neuts % (Manual) Lymphocytes % (Manual) Monocytes % (Manual) Basophils % (Manual) Nucleated RBC % Seg Neutrophils # Seg Neutrophils # Man Lymphocytes # (Manual) Monocytes # (Manual) Eosinophils # (Manual) Basophils # (Manual) PT INR APTT Heparin Anti-Xa Level POC ABG pH 7.198 L POC ABG pCO2 47.5 H POC ABG pO2 Sodium Potassium Chloride Carbon Dioxide BUN Creatinine Glucose POC Glucose 174 H 189 H Calcium Phosphorus Magnesium AST Alkaline Phosphatase C-Reactive Protein Total Protein Albumin Lipase Vitamin B12 TSH Urine WBC (Auto) Urine Chloride Urine Total Protein Vancomycin Trough Crossmatch 10/14/16 10/14/16 10/14/16 12:02 12:02 13:11 WBC 13.4 H RBC 3.60 L Hgb Hct MCV 98 H D RDW 13.1 L Plt Count Lymph % (Auto) [place] % (Auto) [place] # Seg Neutrophils % Seg Neuts % (Manual) Lymphocytes % (Manual) Monocytes % (Manual) Basophils % (Manual) Nucleated RBC % Seg Neutrophils # Seg Neutrophils # Man Lymphocytes # (Manual) Monocytes # (Manual) Eosinophils # (Manual) Basophils # (Manual) PT INR APTT Heparin Anti-Xa Level POC ABG pH POC ABG pCO2 POC ABG pO2 Sodium Potassium Chloride 110.7 H Carbon Dioxide 19 L BUN 38 H Creatinine 1.4 H Glucose 182 H POC Glucose 173 H Calcium 7.5 L Phosphorus Magnesium AST Alkaline Phosphatase C-Reactive Protein Total Protein Albumin Lipase Vitamin B12 TSH Urine WBC (Auto) Urine Chloride Urine Total Protein Vancomycin Trough Crossmatch 10/14/16 10/14/16 10/14/16 14:24 15:31 16:36 WBC RBC Hgb Hct MCV RDW Plt Count Lymph % (Auto) [place] % (Auto) [place] # Seg Neutrophils % Seg Neuts % (Manual) Lymphocytes % (Manual) Monocytes % (Manual) Basophils % (Manual) Nucleated RBC % Seg Neutrophils # Seg Neutrophils # Man Lymphocytes # (Manual) Monocytes # (Manual) Eosinophils # (Manual) Basophils # (Manual) PT INR APTT Heparin Anti-Xa Level POC ABG pH POC ABG pCO2 POC ABG pO2 Sodium Potassium Chloride Carbon Dioxide BUN Creatinine Glucose POC Glucose 123 H 124 H 156 H Calcium Phosphorus Magnesium AST Alkaline Phosphatase C-Reactive Protein Total Protein Albumin Lipase Vitamin B12 TSH Urine WBC (Auto) Urine Chloride Urine Total Protein Vancomycin Trough Crossmatch 10/14/16 10/14/16 10/14/16 17:43 19:00 20:08 WBC RBC Hgb Hct MCV RDW Plt Count Lymph % (Auto) [place] % (Auto) [place] # Seg Neutrophils % Seg Neuts % (Manual) Lymphocytes % (Manual) Monocytes % (Manual) Basophils % (Manual) Nucleated RBC % Seg Neutrophils # Seg Neutrophils # Man Lymphocytes # (Manual) Monocytes # (Manual) Eosinophils # (Manual) Basophils # (Manual) PT INR APTT Heparin Anti-Xa Level POC ABG pH POC ABG pCO2 POC ABG pO2 Sodium Potassium Chloride Carbon Dioxide BUN Creatinine Glucose POC Glucose 154 H 123 H 138 H Calcium Phosphorus Magnesium AST Alkaline Phosphatase C-Reactive Protein Total Protein Albumin Lipase Vitamin B12 TSH Urine WBC (Auto) Urine Chloride Urine Total Protein Vancomycin Trough Crossmatch 10/14/16 10/14/16 10/14/16 21:17 22:25 23:37 WBC RBC Hgb Hct MCV RDW Plt Count Lymph % (Auto) [place] % (Auto) [place] # Seg Neutrophils % Seg Neuts % (Manual) Lymphocytes % (Manual) Monocytes % (Manual) Basophils % (Manual) Nucleated RBC % Seg Neutrophils # Seg Neutrophils # Man Lymphocytes # (Manual) Monocytes # (Manual) Eosinophils # (Manual) Basophils # (Manual) PT INR APTT Heparin Anti-Xa Level POC ABG pH POC ABG pCO2 POC ABG pO2 Sodium Potassium Chloride Carbon Dioxide BUN Creatinine Glucose POC Glucose 148 H 132 H 137 H Calcium Phosphorus Magnesium AST Alkaline Phosphatase C-Reactive Protein Total Protein Albumin Lipase Vitamin B12 TSH Urine WBC (Auto) Urine Chloride Urine Total Protein Vancomycin Trough Crossmatch 10/15/16 10/15/16 10/15/16 00:49 01:53 03:06 WBC RBC Hgb Hct MCV RDW Plt Count Lymph % (Auto) [place] % (Auto) [place] # Seg Neutrophils % Seg Neuts % (Manual) Lymphocytes % (Manual) Monocytes % (Manual) Basophils % (Manual) Nucleated RBC % Seg Neutrophils # Seg Neutrophils # Man Lymphocytes # (Manual) Monocytes # (Manual) Eosinophils # (Manual) Basophils # (Manual) PT INR APTT Heparin Anti-Xa Level POC ABG pH POC ABG pCO2 POC ABG pO2 Sodium Potassium Chloride Carbon Dioxide BUN Creatinine Glucose POC Glucose 132 H 134 H 134 H Calcium Phosphorus Magnesium AST Alkaline Phosphatase C-Reactive Protein Total Protein Albumin Lipase Vitamin B12 TSH Urine WBC (Auto) Urine Chloride Urine Total Protein Vancomycin Trough Crossmatch 10/15/16 10/15/16 10/15/16 04:40 04:46 06:21 WBC RBC Hgb Hct MCV RDW Plt Count Lymph % (Auto) [place] % (Auto) [place] # Seg Neutrophils % Seg Neuts % (Manual) Lymphocytes % (Manual) Monocytes % (Manual) Basophils % (Manual) Nucleated RBC % Seg Neutrophils # Seg Neutrophils # Man Lymphocytes # (Manual) Monocytes # (Manual) Eosinophils # (Manual) Basophils # (Manual) PT INR APTT Heparin Anti-Xa Level POC ABG pH POC ABG pCO2 30.7 L POC ABG pO2 108 H Sodium Potassium Chloride 109.0 H Carbon Dioxide 17 L BUN 27 H Creatinine Glucose 124 H POC Glucose 160 H Calcium 7.5 L Phosphorus Magnesium AST 79 H Alkaline Phosphatase C-Reactive Protein Total Protein 5.5 L Albumin 3.0 L Lipase Vitamin B12 TSH Urine WBC (Auto) Urine Chloride Urine Total Protein Vancomycin Trough Crossmatch 10/15/16 10/15/16 10/15/16 07:12 08:01 09:03 WBC RBC Hgb Hct MCV RDW Plt Count Lymph % (Auto) [place] % (Auto) [place] # Seg Neutrophils % Seg Neuts % (Manual) Lymphocytes % (Manual) Monocytes % (Manual) Basophils % (Manual) Nucleated RBC % Seg Neutrophils # Seg Neutrophils # Man Lymphocytes # (Manual) Monocytes # (Manual) Eosinophils # (Manual) Basophils # (Manual) PT INR APTT Heparin Anti-Xa Level POC ABG pH POC ABG pCO2 POC ABG pO2 Sodium Potassium Chloride Carbon Dioxide BUN Creatinine Glucose POC Glucose 179 H 187 H 165 H Calcium Phosphorus Magnesium AST Alkaline Phosphatase C-Reactive Protein Total Protein Albumin Lipase Vitamin B12 TSH Urine WBC (Auto) Urine Chloride Urine Total Protein Vancomycin Trough Crossmatch 10/15/16 10/15/16 10/15/16 10:06 10:06 10:07 WBC 12.1 H RBC 3.01 L Hgb 9.7 L Hct 29.6 L MCV 98 H RDW Plt Count 129 L Lymph % (Auto) [place] % (Auto) [place] # Seg Neutrophils % Seg Neuts % (Manual) Lymphocytes % (Manual) Monocytes % (Manual) Basophils % (Manual) Nucleated RBC % Seg Neutrophils # Seg Neutrophils # Man Lymphocytes # (Manual) Monocytes # (Manual) Eosinophils # (Manual) Basophils # (Manual) PT INR APTT Heparin Anti-Xa Level POC ABG pH POC ABG pCO2 POC ABG pO2 Sodium Potassium 3.2 L D Chloride 109.6 H Carbon Dioxide 18 L BUN 22 H Creatinine Glucose 127 H POC Glucose 147 H Calcium 7.0 L Phosphorus Magnesium AST Alkaline Phosphatase C-Reactive Protein Total Protein Albumin Lipase Vitamin B12 TSH Urine WBC (Auto) Urine Chloride Urine Total Protein Vancomycin Trough Crossmatch 10/15/16 10/15/16 10/15/16 11:05 11:06 11:57 WBC RBC Hgb Hct MCV RDW Plt Count Lymph % (Auto) [place] % (Auto) [place] # Seg Neutrophils % Seg Neuts % (Manual) Lymphocytes % (Manual) Monocytes % (Manual) Basophils % (Manual) Nucleated RBC % Seg Neutrophils # Seg Neutrophils # Man Lymphocytes # (Manual) Monocytes # (Manual) Eosinophils # (Manual) Basophils # (Manual) PT INR APTT Heparin Anti-Xa Level POC ABG pH 7.305 L POC ABG pCO2 POC ABG pO2 Sodium Potassium Chloride Carbon Dioxide BUN Creatinine Glucose POC Glucose 145 H Calcium Phosphorus Magnesium AST Alkaline Phosphatase C-Reactive Protein Total Protein Albumin Lipase Vitamin B12 TSH Urine WBC (Auto) 7.0 H Urine Chloride Urine Total Protein Vancomycin Trough Crossmatch 10/15/16 10/15/16 10/15/16 12:04 13:59 15:24 WBC RBC Hgb Hct MCV RDW Plt Count Lymph % (Auto) [place] % (Auto) [place] # Seg Neutrophils % Seg Neuts % (Manual) Lymphocytes % (Manual) Monocytes % (Manual) Basophils % (Manual) Nucleated RBC % Seg Neutrophils # Seg Neutrophils # Man Lymphocytes # (Manual) Monocytes # (Manual) Eosinophils # (Manual) Basophils # (Manual) PT INR APTT Heparin Anti-Xa Level POC ABG pH POC ABG pCO2 POC ABG pO2 Sodium Potassium Chloride Carbon Dioxide BUN Creatinine Glucose POC Glucose 123 H 147 H 153 H Calcium Phosphorus Magnesium AST Alkaline Phosphatase C-Reactive Protein Total Protein Albumin Lipase Vitamin B12 TSH Urine WBC (Auto) Urine Chloride Urine Total Protein Vancomycin Trough Crossmatch 10/15/16 10/15/16 10/15/16 16:30 17:34 18:30 WBC RBC Hgb Hct MCV RDW Plt Count Lymph % (Auto) [place] % (Auto) [place] # Seg Neutrophils % Seg Neuts % (Manual) Lymphocytes % (Manual) Monocytes % (Manual) Basophils % (Manual) Nucleated RBC % Seg Neutrophils # Seg Neutrophils # Man Lymphocytes # (Manual) Monocytes # (Manual) Eosinophils # (Manual) Basophils # (Manual) PT INR APTT Heparin Anti-Xa Level POC ABG pH POC ABG pCO2 POC ABG pO2 Sodium Potassium Chloride Carbon Dioxide BUN Creatinine Glucose POC Glucose 223 H 236 H 164 H Calcium Phosphorus Magnesium AST Alkaline Phosphatase C-Reactive Protein Total Protein Albumin Lipase Vitamin B12 TSH Urine WBC (Auto) Urine Chloride Urine Total Protein Vancomycin Trough Crossmatch 10/15/16 10/15/16 10/15/16 19:14 20:31 21:23 WBC RBC Hgb Hct MCV RDW Plt Count Lymph % (Auto) [place] % (Auto) [place] # Seg Neutrophils % Seg Neuts % (Manual) Lymphocytes % (Manual) Monocytes % (Manual) Basophils % (Manual) Nucleated RBC % Seg Neutrophils # Seg Neutrophils # Man Lymphocytes # (Manual) Monocytes # (Manual) Eosinophils # (Manual) Basophils # (Manual) PT INR APTT Heparin Anti-Xa Level POC ABG pH POC ABG pCO2 POC ABG pO2 Sodium Potassium Chloride Carbon Dioxide BUN Creatinine Glucose POC Glucose 138 H 158 H 158 H Calcium Phosphorus Magnesium AST Alkaline Phosphatase C-Reactive Protein Total Protein Albumin Lipase Vitamin B12 TSH Urine WBC (Auto) Urine Chloride Urine Total Protein Vancomycin Trough Crossmatch 10/15/16 10/15/16 10/16/16 22:04 22:57 00:11 WBC RBC Hgb Hct MCV RDW Plt Count Lymph % (Auto) [place] % (Auto) [place] # Seg Neutrophils % Seg Neuts % (Manual) Lymphocytes % (Manual) Monocytes % (Manual) Basophils % (Manual) Nucleated RBC % Seg Neutrophils # Seg Neutrophils # Man Lymphocytes # (Manual) Monocytes # (Manual) Eosinophils # (Manual) Basophils # (Manual) PT INR APTT Heparin Anti-Xa Level POC ABG pH POC ABG pCO2 POC ABG pO2 Sodium Potassium Chloride Carbon Dioxide BUN Creatinine Glucose POC Glucose 168 H 213 H 166 H Calcium Phosphorus Magnesium AST Alkaline Phosphatase C-Reactive Protein Total Protein Albumin Lipase Vitamin B12 TSH Urine WBC (Auto) Urine Chloride Urine Total Protein Vancomycin Trough Crossmatch 10/16/16 10/16/16 10/16/16 01:16 02:32 03:38 WBC RBC Hgb Hct MCV RDW Plt Count Lymph % (Auto) [place] % (Auto) [place] # Seg Neutrophils % Seg Neuts % (Manual) Lymphocytes % (Manual) Monocytes % (Manual) Basophils % (Manual) Nucleated RBC % Seg Neutrophils # Seg Neutrophils # Man Lymphocytes # (Manual) Monocytes # (Manual) Eosinophils # (Manual) Basophils # (Manual) PT INR APTT Heparin Anti-Xa Level POC ABG pH POC ABG pCO2 POC ABG pO2 Sodium Potassium Chloride Carbon Dioxide BUN Creatinine Glucose POC Glucose 171 H 164 H 147 H Calcium Phosphorus Magnesium AST Alkaline Phosphatase C-Reactive Protein Total Protein Albumin Lipase Vitamin B12 TSH Urine WBC (Auto) Urine Chloride Urine Total Protein Vancomycin Trough Crossmatch 10/16/16 10/16/16 10/16/16 04:14 04:14 04:49 WBC RBC Hgb Hct MCV RDW Plt Count Lymph % (Auto) [place] % (Auto) [place] # Seg Neutrophils % Seg Neuts % (Manual) Lymphocytes % (Manual) Monocytes % (Manual) Basophils % (Manual) Nucleated RBC % Seg Neutrophils # Seg Neutrophils # Man Lymphocytes # (Manual) Monocytes # (Manual) Eosinophils # (Manual) Basophils # (Manual) PT INR APTT Heparin Anti-Xa Level POC ABG pH POC ABG pCO2 POC ABG pO2 Sodium 147 H Potassium Chloride 110.9 H Carbon Dioxide 19 L BUN Creatinine Glucose 139 H POC Glucose 144 H Calcium 7.3 L Phosphorus 2.3 L Magnesium AST Alkaline Phosphatase C-Reactive Protein Total Protein Albumin Lipase 143 H Vitamin B12 TSH Urine WBC (Auto) Urine Chloride Urine Total Protein Vancomycin Trough Crossmatch 10/16/16 10/16/16 10/16/16 05:03 05:41 05:58 WBC 16.5 H RBC 3.36 L Hgb Hct MCV 98 H RDW 13.1 L Plt Count Lymph % (Auto) 8.5 L [place] % (Auto) 7.6 H [place] # 1.3 H Seg Neutrophils % 83.3 H Seg Neuts % (Manual) Lymphocytes % (Manual) Monocytes % (Manual) Basophils % (Manual) Nucleated RBC % Seg Neutrophils # 13.8 H Seg Neutrophils # Man Lymphocytes # (Manual) Monocytes # (Manual) Eosinophils # (Manual) Basophils # (Manual) PT INR APTT Heparin Anti-Xa Level POC ABG pH POC ABG pCO2 30.7 L POC ABG pO2 128 H Sodium Potassium Chloride Carbon Dioxide BUN Creatinine Glucose POC Glucose 131 H Calcium Phosphorus Magnesium AST Alkaline Phosphatase C-Reactive Protein Total Protein Albumin Lipase Vitamin B12 TSH Urine WBC (Auto) Urine Chloride Urine Total Protein Vancomycin Trough Crossmatch 10/16/16 10/16/16 10/16/16 06:32 09:27 09:35 WBC RBC Hgb Hct MCV RDW Plt Count Lymph % (Auto) [place] % (Auto) [place] # Seg Neutrophils % Seg Neuts % (Manual) Lymphocytes % (Manual) Monocytes % (Manual) Basophils % (Manual) Nucleated RBC % Seg Neutrophils # Seg Neutrophils # Man Lymphocytes # (Manual) Monocytes # (Manual) Eosinophils # (Manual) Basophils # (Manual) PT INR APTT Heparin Anti-Xa Level POC ABG pH POC ABG pCO2 32.8 L POC ABG pO2 137 H Sodium Potassium Chloride Carbon Dioxide BUN Creatinine Glucose POC Glucose 121 H 150 H Calcium Phosphorus Magnesium AST Alkaline Phosphatase C-Reactive Protein Total Protein Albumin Lipase Vitamin B12 TSH Urine WBC (Auto) Urine Chloride Urine Total Protein Vancomycin Trough Crossmatch 10/16/16 10/16/16 10/16/16 10:47 13:27 14:24 WBC RBC Hgb Hct MCV RDW Plt Count Lymph % (Auto) [place] % (Auto) [place] # Seg Neutrophils % Seg Neuts % (Manual) Lymphocytes % (Manual) Monocytes % (Manual) Basophils % (Manual) Nucleated RBC % Seg Neutrophils # Seg Neutrophils # Man Lymphocytes # (Manual) Monocytes # (Manual) Eosinophils # (Manual) Basophils # (Manual) PT INR APTT Heparin Anti-Xa Level POC ABG pH POC ABG pCO2 POC ABG pO2 Sodium Potassium Chloride Carbon Dioxide BUN Creatinine Glucose POC Glucose 184 H 171 H 174 H Calcium Phosphorus Magnesium AST Alkaline Phosphatase C-Reactive Protein Total Protein Albumin Lipase Vitamin B12 TSH Urine WBC (Auto) Urine Chloride Urine Total Protein Vancomycin Trough Crossmatch 10/16/16 10/16/16 10/16/16 15:48 16:26 18:17 WBC RBC Hgb Hct MCV RDW Plt Count Lymph % (Auto) [place] % (Auto) [place] # Seg Neutrophils % Seg Neuts % (Manual) Lymphocytes % (Manual) Monocytes % (Manual) Basophils % (Manual) Nucleated RBC % Seg Neutrophils # Seg Neutrophils # Man Lymphocytes # (Manual) Monocytes # (Manual) Eosinophils # (Manual) Basophils # (Manual) PT INR APTT Heparin Anti-Xa Level POC ABG pH POC ABG pCO2 POC ABG pO2 Sodium Potassium Chloride Carbon Dioxide BUN Creatinine Glucose POC Glucose 205 H 204 H 234 H Calcium Phosphorus Magnesium AST Alkaline Phosphatase C-Reactive Protein Total Protein Albumin Lipase Vitamin B12 TSH Urine WBC (Auto) Urine Chloride Urine Total Protein Vancomycin Trough Crossmatch 10/16/16 10/16/16 10/16/16 19:40 20:33 21:36 WBC RBC Hgb Hct MCV RDW Plt Count Lymph % (Auto) [place] % (Auto) [place] # Seg Neutrophils % Seg Neuts % (Manual) Lymphocytes % (Manual) Monocytes % (Manual) Basophils % (Manual) Nucleated RBC % Seg Neutrophils # Seg Neutrophils # Man Lymphocytes # (Manual) Monocytes # (Manual) Eosinophils # (Manual) Basophils # (Manual) PT INR APTT Heparin Anti-Xa Level POC ABG pH POC ABG pCO2 POC ABG pO2 Sodium Potassium Chloride Carbon Dioxide BUN Creatinine Glucose POC Glucose 167 H 153 H 158 H Calcium Phosphorus Magnesium AST Alkaline Phosphatase C-Reactive Protein Total Protein Albumin Lipase Vitamin B12 TSH Urine WBC (Auto) Urine Chloride Urine Total Protein Vancomycin Trough Crossmatch 10/16/16 10/16/16 10/17/16 22:54 23:48 00:47 WBC RBC Hgb Hct MCV RDW Plt Count Lymph % (Auto) [place] % (Auto) [place] # Seg Neutrophils % Seg Neuts % (Manual) Lymphocytes % (Manual) Monocytes % (Manual) Basophils % (Manual) Nucleated RBC % Seg Neutrophils # Seg Neutrophils # Man Lymphocytes # (Manual) Monocytes # (Manual) Eosinophils # (Manual) Basophils # (Manual) PT INR APTT Heparin Anti-Xa Level POC ABG pH POC ABG pCO2 POC ABG pO2 Sodium Potassium Chloride Carbon Dioxide BUN Creatinine Glucose POC Glucose 180 H 207 H 196 H Calcium Phosphorus Magnesium AST Alkaline Phosphatase C-Reactive Protein Total Protein Albumin Lipase Vitamin B12 TSH Urine WBC (Auto) Urine Chloride Urine Total Protein Vancomycin Trough Crossmatch 10/17/16 10/17/16 10/17/16 01:57 02:49 03:50 WBC RBC Hgb Hct MCV RDW Plt Count Lymph % (Auto) [place] % (Auto) [place] # Seg Neutrophils % Seg Neuts % (Manual) Lymphocytes % (Manual) Monocytes % (Manual) Basophils % (Manual) Nucleated RBC % Seg Neutrophils # Seg Neutrophils # Man Lymphocytes # (Manual) Monocytes # (Manual) Eosinophils # (Manual) Basophils # (Manual) PT INR APTT Heparin Anti-Xa Level POC ABG pH POC ABG pCO2 POC ABG pO2 Sodium Potassium Chloride Carbon Dioxide BUN Creatinine Glucose POC Glucose 180 H 151 H 106 H Calcium Phosphorus Magnesium AST Alkaline Phosphatase C-Reactive Protein Total Protein Albumin Lipase Vitamin B12 TSH Urine WBC (Auto) Urine Chloride Urine Total Protein Vancomycin Trough Crossmatch 10/17/16 10/17/16 10/17/16 04:59 06:03 06:35 WBC RBC Hgb Hct MCV RDW Plt Count Lymph % (Auto) [place] % (Auto) [place] # Seg Neutrophils % Seg Neuts % (Manual) Lymphocytes % (Manual) Monocytes % (Manual) Basophils % (Manual) Nucleated RBC % Seg Neutrophils # Seg Neutrophils # Man Lymphocytes # (Manual) Monocytes # (Manual) Eosinophils # (Manual) Basophils # (Manual) PT INR APTT Heparin Anti-Xa Level POC ABG pH 7.453 H POC ABG pCO2 30.1 L POC ABG pO2 111 H Sodium Potassium Chloride Carbon Dioxide BUN Creatinine Glucose POC Glucose 145 H 157 H Calcium Phosphorus Magnesium AST Alkaline Phosphatase C-Reactive Protein Total Protein Albumin Lipase Vitamin B12 TSH Urine WBC (Auto) Urine Chloride Urine Total Protein Vancomycin Trough Crossmatch 10/17/16 10/17/16 10/17/16 07:08 07:11 08:01 WBC RBC Hgb Hct MCV RDW Plt Count Lymph % (Auto) [place] % (Auto) [place] # Seg Neutrophils % Seg Neuts % (Manual) Lymphocytes % (Manual) Monocytes % (Manual) Basophils % (Manual) Nucleated RBC % Seg Neutrophils # Seg Neutrophils # Man Lymphocytes # (Manual) Monocytes # (Manual) Eosinophils # (Manual) Basophils # (Manual) PT INR APTT Heparin Anti-Xa Level POC ABG pH POC ABG pCO2 POC ABG pO2 Sodium 147 H Potassium Chloride 113.8 H Carbon Dioxide 19 L BUN Creatinine Glucose 136 H POC Glucose 136 H 152 H Calcium 7.7 L Phosphorus Magnesium AST Alkaline Phosphatase C-Reactive Protein Total Protein Albumin Lipase Vitamin B12 TSH Urine WBC (Auto) Urine Chloride Urine Total Protein Vancomycin Trough Crossmatch 10/17/16 10/17/16 10/17/16 08:23 09:17 09:53 WBC 18.1 H RBC 3.01 L Hgb 9.7 L Hct 29.4 L MCV 98 H RDW Plt Count 116 L Lymph % (Auto) [place] % (Auto) [place] # Seg Neutrophils % Seg Neuts % (Manual) 77.0 H Lymphocytes % (Manual) 4.0 L Monocytes % (Manual) 12.0 H Basophils % (Manual) Nucleated RBC % Seg Neutrophils # Seg Neutrophils # Man 13.9 H Lymphocytes # (Manual) 0.7 L Monocytes # (Manual) 2.2 H Eosinophils # (Manual) Basophils # (Manual) PT INR APTT Heparin Anti-Xa Level POC ABG pH POC ABG pCO2 POC ABG pO2 Sodium Potassium Chloride Carbon Dioxide BUN Creatinine Glucose POC Glucose 148 H 137 H Calcium Phosphorus Magnesium AST Alkaline Phosphatase C-Reactive Protein Total Protein Albumin Lipase Vitamin B12 TSH Urine WBC (Auto) Urine Chloride Urine Total Protein Vancomycin Trough Crossmatch 10/17/16 10/17/16 10/17/16 11:43 16:07 17:42 WBC RBC Hgb Hct MCV RDW Plt Count Lymph % (Auto) [place] % (Auto) [place] # Seg Neutrophils % Seg Neuts % (Manual) Lymphocytes % (Manual) Monocytes % (Manual) Basophils % (Manual) Nucleated RBC % Seg Neutrophils # Seg Neutrophils # Man Lymphocytes # (Manual) Monocytes # (Manual) Eosinophils # (Manual) Basophils # (Manual) PT 16.4 H INR 1.33 H APTT 38.8 H Heparin Anti-Xa Level POC ABG pH POC ABG pCO2 POC ABG pO2 Sodium Potassium Chloride Carbon Dioxide BUN Creatinine Glucose POC Glucose 179 H 153 H Calcium Phosphorus Magnesium AST Alkaline Phosphatase C-Reactive Protein Total Protein Albumin Lipase Vitamin B12 TSH Urine WBC (Auto) Urine Chloride Urine Total Protein Vancomycin Trough Crossmatch 10/17/16 10/18/16 10/18/16 22:54 04:37 05:39 WBC RBC Hgb Hct MCV RDW Plt Count Lymph % (Auto) [place] % (Auto) [place] # Seg Neutrophils % Seg Neuts % (Manual) Lymphocytes % (Manual) Monocytes % (Manual) Basophils % (Manual) Nucleated RBC % Seg Neutrophils # Seg Neutrophils # Man Lymphocytes # (Manual) Monocytes # (Manual) Eosinophils # (Manual) Basophils # (Manual) PT INR APTT Heparin Anti-Xa Level 0.27 L POC ABG pH 7.454 H POC ABG pCO2 30.8 L POC ABG pO2 115 H Sodium Potassium Chloride Carbon Dioxide BUN Creatinine Glucose POC Glucose 69 L Calcium Phosphorus Magnesium AST Alkaline Phosphatase C-Reactive Protein Total Protein Albumin Lipase Vitamin B12 TSH Urine WBC (Auto) Urine Chloride Urine Total Protein Vancomycin Trough Crossmatch 10/18/16 10/18/16 10/18/16 06:46 06:46 06:46 WBC 20.5 H RBC 2.62 L Hgb 8.4 L Hct 26.0 L MCV 100 H RDW Plt Count Lymph % (Auto) [place] % (Auto) [place] # Seg Neutrophils % Seg Neuts % (Manual) 75.0 H Lymphocytes % (Manual) 9.0 L Monocytes % (Manual) 14.0 H Basophils % (Manual) Nucleated RBC % Seg Neutrophils # Seg Neutrophils # Man 15.4 H Lymphocytes # (Manual) Monocytes # (Manual) 2.9 H Eosinophils # (Manual) Basophils # (Manual) PT INR APTT Heparin Anti-Xa Level POC ABG pH POC ABG pCO2 POC ABG pO2 Sodium Potassium Chloride 110.6 H Carbon Dioxide BUN Creatinine 1.3 H Glucose 153 H POC Glucose Calcium 8.0 L Phosphorus Magnesium 1.6 L AST Alkaline Phosphatase C-Reactive Protein Total Protein Albumin Lipase Vitamin B12 TSH Urine WBC (Auto) Urine Chloride Urine Total Protein Vancomycin Trough Crossmatch 10/18/16 10/18/16 10/18/16 07:30 11:37 17:51 WBC RBC Hgb Hct MCV RDW Plt Count Lymph % (Auto) [place] % (Auto) [place] # Seg Neutrophils % Seg Neuts % (Manual) Lymphocytes % (Manual) Monocytes % (Manual) Basophils % (Manual) Nucleated RBC % Seg Neutrophils # Seg Neutrophils # Man Lymphocytes # (Manual) Monocytes # (Manual) Eosinophils # (Manual) Basophils # (Manual) PT INR APTT Heparin Anti-Xa Level POC ABG pH POC ABG pCO2 POC ABG pO2 Sodium Potassium Chloride Carbon Dioxide BUN Creatinine Glucose POC Glucose 162 H 156 H 164 H Calcium Phosphorus Magnesium AST Alkaline Phosphatase C-Reactive Protein Total Protein Albumin Lipase Vitamin B12 TSH Urine WBC (Auto) Urine Chloride Urine Total Protein Vancomycin Trough Crossmatch 10/18/16 10/19/16 10/19/16 23:44 03:59 05:13 WBC 18.2 H RBC 2.76 L Hgb 9.0 L Hct 27.7 L MCV 100 H RDW Plt Count Lymph % (Auto) [place] % (Auto) [place] # Seg Neutrophils % Seg Neuts % (Manual) 76.0 H Lymphocytes % (Manual) 10.0 L Monocytes % (Manual) Basophils % (Manual) Nucleated RBC % Seg Neutrophils # Seg Neutrophils # Man 13.8 H Lymphocytes # (Manual) Monocytes # (Manual) Eosinophils # (Manual) Basophils # (Manual) PT INR APTT Heparin Anti-Xa Level POC ABG pH POC ABG pCO2 32.2 L POC ABG pO2 128 H Sodium Potassium Chloride Carbon Dioxide BUN Creatinine Glucose POC Glucose 278 H Calcium Phosphorus Magnesium AST Alkaline Phosphatase C-Reactive Protein Total Protein Albumin Lipase Vitamin B12 TSH Urine WBC (Auto) Urine Chloride Urine Total Protein Vancomycin Trough Crossmatch 10/19/16 10/19/16 10/19/16 06:01 06:30 12:20 WBC RBC Hgb Hct MCV RDW Plt Count Lymph % (Auto) [place] % (Auto) [place] # Seg Neutrophils % Seg Neuts % (Manual) Lymphocytes % (Manual) Monocytes % (Manual) Basophils % (Manual) Nucleated RBC % Seg Neutrophils # Seg Neutrophils # Man Lymphocytes # (Manual) Monocytes # (Manual) Eosinophils # (Manual) Basophils # (Manual) PT INR APTT Heparin Anti-Xa Level POC ABG pH POC ABG pCO2 POC ABG pO2 Sodium Potassium Chloride Carbon Dioxide 18 L BUN Creatinine 1.3 H Glucose 262 H POC Glucose 261 H 349 H Calcium 7.7 L Phosphorus 4.8 H D Magnesium AST Alkaline Phosphatase C-Reactive Protein Total Protein Albumin Lipase Vitamin B12 TSH Urine WBC (Auto) Urine Chloride Urine Total Protein Vancomycin Trough Crossmatch 10/19/16 10/20/16 10/20/16 16:48 00:17 05:20 WBC 22.5 H RBC 2.80 L Hgb 8.9 L Hct 28.3 L MCV 101 H RDW Plt Count Lymph % (Auto) [place] % (Auto) [place] # Seg Neutrophils % Seg Neuts % (Manual) Lymphocytes % (Manual) 10.0 L Monocytes % (Manual) Basophils % (Manual) Nucleated RBC % Seg Neutrophils # Seg Neutrophils # Man 13.3 H Lymphocytes # (Manual) Monocytes # (Manual) 1.1 H Eosinophils # (Manual) 0.7 H Basophils # (Manual) PT INR APTT Heparin Anti-Xa Level POC ABG pH POC ABG pCO2 POC ABG pO2 Sodium Potassium Chloride Carbon Dioxide BUN Creatinine Glucose POC Glucose 248 H 346 H Calcium Phosphorus Magnesium AST Alkaline Phosphatase C-Reactive Protein Total Protein Albumin Lipase Vitamin B12 TSH Urine WBC (Auto) Urine Chloride Urine Total Protein Vancomycin Trough Crossmatch 10/20/16 10/20/16 10/20/16 05:20 05:20 06:05 WBC RBC Hgb Hct MCV RDW Plt Count Lymph % (Auto) [place] % (Auto) [place] # Seg Neutrophils % Seg Neuts % (Manual) Lymphocytes % (Manual) Monocytes % (Manual) Basophils % (Manual) Nucleated RBC % Seg Neutrophils # Seg Neutrophils # Man Lymphocytes # (Manual) Monocytes # (Manual) Eosinophils # (Manual) Basophils # (Manual) PT INR APTT Heparin Anti-Xa Level 0.20 L POC ABG pH POC ABG pCO2 POC ABG pO2 Sodium Potassium Chloride Carbon Dioxide BUN 20 H Creatinine Glucose 374 H POC Glucose 337 H Calcium 8.3 L Phosphorus Magnesium AST Alkaline Phosphatase C-Reactive Protein Total Protein Albumin Lipase Vitamin B12 TSH Urine WBC (Auto) Urine Chloride Urine Total Protein Vancomycin Trough Crossmatch 10/20/16 10/20/16 10/20/16 11:49 13:59 17:56 WBC RBC Hgb Hct MCV RDW Plt Count Lymph % (Auto) [place] % (Auto) [place] # Seg Neutrophils % Seg Neuts % (Manual) Lymphocytes % (Manual) Monocytes % (Manual) Basophils % (Manual) Nucleated RBC % Seg Neutrophils # Seg Neutrophils # Man Lymphocytes # (Manual) Monocytes # (Manual) Eosinophils # (Manual) Basophils # (Manual) PT INR APTT Heparin Anti-Xa Level 2.00 H POC ABG pH POC ABG pCO2 POC ABG pO2 Sodium Potassium Chloride Carbon Dioxide BUN Creatinine Glucose POC Glucose 305 H 362 H Calcium Phosphorus Magnesium AST Alkaline Phosphatase C-Reactive Protein Total Protein Albumin Lipase Vitamin B12 TSH Urine WBC (Auto) Urine Chloride Urine Total Protein Vancomycin Trough Crossmatch 10/20/16 10/21/16 10/21/16 23:52 05:00 05:49 WBC 22.9 H RBC 2.49 L Hgb 7.7 L Hct 25.6 L MCV 103 H RDW Plt Count Lymph % (Auto) [place] % (Auto) [place] # Seg Neutrophils % Seg Neuts % (Manual) 94.0 H Lymphocytes % (Manual) 1.0 L Monocytes % (Manual) Basophils % (Manual) Nucleated RBC % Seg Neutrophils # Seg Neutrophils # Man 21.5 H Lymphocytes # (Manual) 0.2 L Monocytes # (Manual) 1.1 H Eosinophils # (Manual) Basophils # (Manual) PT INR APTT Heparin Anti-Xa Level POC ABG pH POC ABG pCO2 POC ABG pO2 Sodium Potassium Chloride Carbon Dioxide BUN Creatinine Glucose POC Glucose 252 H 180 H Calcium Phosphorus Magnesium AST Alkaline Phosphatase C-Reactive Protein Total Protein Albumin Lipase Vitamin B12 TSH Urine WBC (Auto) Urine Chloride Urine Total Protein Vancomycin Trough Crossmatch 10/21/16 10/21/16 10/21/16 11:47 11:49 14:10 WBC RBC Hgb Hct MCV RDW Plt Count Lymph % (Auto) [place] % (Auto) [place] # Seg Neutrophils % Seg Neuts % (Manual) Lymphocytes % (Manual) Monocytes % (Manual) Basophils % (Manual) Nucleated RBC % Seg Neutrophils # Seg Neutrophils # Man Lymphocytes # (Manual) Monocytes # (Manual) Eosinophils # (Manual) Basophils # (Manual) PT INR APTT Heparin Anti-Xa Level POC ABG pH POC ABG pCO2 POC ABG pO2 Sodium Potassium Chloride Carbon Dioxide BUN Creatinine Glucose POC Glucose 50 L 56 L 140 H Calcium Phosphorus Magnesium AST Alkaline Phosphatase C-Reactive Protein Total Protein Albumin Lipase Vitamin B12 TSH Urine WBC (Auto) Urine Chloride Urine Total Protein Vancomycin Trough Crossmatch 10/21/16 10/21/16 10/22/16 18:24 Unknown 00:07 WBC RBC Hgb Hct MCV RDW Plt Count Lymph % (Auto) [place] % (Auto) [place] # Seg Neutrophils % Seg Neuts % (Manual) Lymphocytes % (Manual) Monocytes % (Manual) Basophils % (Manual) Nucleated RBC % Seg Neutrophils # Seg Neutrophils # Man Lymphocytes # (Manual) Monocytes # (Manual) Eosinophils # (Manual) Basophils # (Manual) PT INR APTT Heparin Anti-Xa Level POC ABG pH POC ABG pCO2 POC ABG pO2 Sodium 150 H Potassium 3.1 L Chloride 112.4 H Carbon Dioxide BUN 25 H Creatinine 1.4 H Glucose POC Glucose 175 H 218 H Calcium 8.0 L Phosphorus Magnesium AST Alkaline Phosphatase C-Reactive Protein Total Protein Albumin Lipase Vitamin B12 TSH Urine WBC (Auto) Urine Chloride Urine Total Protein Vancomycin Trough Crossmatch 10/22/16 10/22/16 10/22/16 04:20 04:20 10:25 WBC 20.8 H RBC 2.37 L Hgb 7.5 L Hct 23.9 L MCV 101 H RDW Plt Count Lymph % (Auto) [place] % (Auto) [place] # Seg Neutrophils % Seg Neuts % (Manual) 89.0 H Lymphocytes % (Manual) 7.0 L Monocytes % (Manual) Basophils % (Manual) Nucleated RBC % Seg Neutrophils # Seg Neutrophils # Man 18.5 H Lymphocytes # (Manual) Monocytes # (Manual) Eosinophils # (Manual) Basophils # (Manual) 0.2 H PT INR APTT Heparin Anti-Xa Level POC ABG pH POC ABG pCO2 POC ABG pO2 Sodium 148 H Potassium 2.9 L* Chloride 109.4 H Carbon Dioxide BUN 26 H Creatinine Glucose 140 H POC Glucose Calcium 7.5 L Phosphorus Magnesium AST Alkaline Phosphatase C-Reactive Protein Total Protein Albumin Lipase Vitamin B12 976.8 H TSH Urine WBC (Auto) Urine Chloride Urine Total Protein Vancomycin Trough Crossmatch 10/22/16 10/22/16 10/22/16 10:25 14:50 18:16 WBC RBC Hgb Hct MCV RDW Plt Count Lymph % (Auto) [place] % (Auto) [place] # Seg Neutrophils % Seg Neuts % (Manual) Lymphocytes % (Manual) Monocytes % (Manual) Basophils % (Manual) Nucleated RBC % Seg Neutrophils # Seg Neutrophils # Man Lymphocytes # (Manual) Monocytes # (Manual) Eosinophils # (Manual) Basophils # (Manual) PT INR APTT Heparin Anti-Xa Level POC ABG pH POC ABG pCO2 POC ABG pO2 Sodium Potassium Chloride Carbon Dioxide BUN Creatinine Glucose POC Glucose 193 H Calcium Phosphorus Magnesium AST Alkaline Phosphatase C-Reactive Protein Total Protein Albumin Lipase Vitamin B12 TSH 0.143 L 0.162 L Urine WBC (Auto) Urine Chloride Urine Total Protein Vancomycin Trough Crossmatch 10/22/16 10/22/16 10/22/16 20:00 20:00 20:00 WBC 24.1 H RBC 2.58 L Hgb 8.2 L Hct 26.4 L MCV 102 H RDW Plt Count Lymph % (Auto) [place] % (Auto) [place] # Seg Neutrophils % Seg Neuts % (Manual) 74.0 H Lymphocytes % (Manual) 7.0 L Monocytes % (Manual) Basophils % (Manual) Nucleated RBC % Seg Neutrophils # Seg Neutrophils # Man 17.8 H Lymphocytes # (Manual) Monocytes # (Manual) Eosinophils # (Manual) Basophils # (Manual) PT INR APTT Heparin Anti-Xa Level 1.92 H POC ABG pH POC ABG pCO2 POC ABG pO2 Sodium Potassium Chloride Carbon Dioxide BUN Creatinine Glucose POC Glucose Calcium Phosphorus Magnesium AST Alkaline Phosphatase C-Reactive Protein Total Protein Albumin Lipase Vitamin B12 TSH Urine WBC (Auto) Urine Chloride Urine Total Protein Vancomycin Trough Crossmatch See Detail 10/23/16 10/23/16 10/23/16 00:21 06:09 12:07 WBC RBC Hgb Hct MCV RDW Plt Count Lymph % (Auto) [place] % (Auto) [place] # Seg Neutrophils % Seg Neuts % (Manual) Lymphocytes % (Manual) Monocytes % (Manual) Basophils % (Manual) Nucleated RBC % Seg Neutrophils # Seg Neutrophils # Man Lymphocytes # (Manual) Monocytes # (Manual) Eosinophils # (Manual) Basophils # (Manual) PT INR APTT Heparin Anti-Xa Level POC ABG pH POC ABG pCO2 POC ABG pO2 Sodium Potassium Chloride Carbon Dioxide BUN Creatinine Glucose POC Glucose 283 H 241 H 340 H Calcium Phosphorus Magnesium AST Alkaline Phosphatase C-Reactive Protein Total Protein Albumin Lipase Vitamin B12 TSH Urine WBC (Auto) Urine Chloride Urine Total Protein Vancomycin Trough Crossmatch 10/23/16 10/23/16 10/23/16 14:01 16:00 17:59 WBC RBC Hgb Hct MCV RDW Plt Count Lymph % (Auto) [place] % (Auto) [place] # Seg Neutrophils % Seg Neuts % (Manual) Lymphocytes % (Manual) Monocytes % (Manual) Basophils % (Manual) Nucleated RBC % Seg Neutrophils # Seg Neutrophils # Man Lymphocytes # (Manual) Monocytes # (Manual) Eosinophils # (Manual) Basophils # (Manual) PT INR APTT Heparin Anti-Xa Level 0.19 L POC ABG pH POC ABG pCO2 32.4 L POC ABG pO2 Sodium Potassium Chloride Carbon Dioxide BUN Creatinine Glucose POC Glucose 245 H Calcium Phosphorus Magnesium AST Alkaline Phosphatase C-Reactive Protein Total Protein Albumin Lipase Vitamin B12 TSH Urine WBC (Auto) Urine Chloride Urine Total Protein Vancomycin Trough Crossmatch 10/23/16 10/23/16 10/23/16 22:55 Unknown Unknown WBC 22.6 H RBC 3.26 L Hgb Hct MCV RDW 17.1 H Plt Count Lymph % (Auto) [place] % (Auto) [place] # Seg Neutrophils % Seg Neuts % (Manual) Lymphocytes % (Manual) 11.0 L Monocytes % (Manual) Basophils % (Manual) Nucleated RBC % Seg Neutrophils # Seg Neutrophils # Man 14.0 H Lymphocytes # (Manual) Monocytes # (Manual) Eosinophils # (Manual) Basophils # (Manual) PT INR APTT Heparin Anti-Xa Level 0.17 L 0.15 L POC ABG pH POC ABG pCO2 POC ABG pO2 Sodium Potassium Chloride Carbon Dioxide BUN Creatinine Glucose POC Glucose Calcium Phosphorus Magnesium AST Alkaline Phosphatase C-Reactive Protein Total Protein Albumin Lipase Vitamin B12 TSH Urine WBC (Auto) Urine Chloride Urine Total Protein Vancomycin Trough Crossmatch 10/23/16 10/24/16 10/24/16 Unknown 00:05 05:30 WBC RBC Hgb Hct MCV RDW Plt Count Lymph % (Auto) [place] % (Auto) [place] # Seg Neutrophils % Seg Neuts % (Manual) Lymphocytes % (Manual) Monocytes % (Manual) Basophils % (Manual) Nucleated RBC % Seg Neutrophils # Seg Neutrophils # Man Lymphocytes # (Manual) Monocytes # (Manual) Eosinophils # (Manual) Basophils # (Manual) PT INR APTT Heparin Anti-Xa Level 0.13 L POC ABG pH POC ABG pCO2 POC ABG pO2 Sodium Potassium Chloride 111.2 H Carbon Dioxide 20 L BUN 25 H Creatinine Glucose 227 H POC Glucose 118 H Calcium 7.1 L Phosphorus Magnesium AST Alkaline Phosphatase C-Reactive Protein Total Protein Albumin Lipase Vitamin B12 TSH Urine WBC (Auto) Urine Chloride Urine Total Protein Vancomycin Trough Crossmatch 10/24/16 10/24/16 10/24/16 11:00 11:00 12:06 WBC 17.6 H RBC 2.92 L Hgb 9.2 L Hct 28.3 L MCV RDW 16.9 H Plt Count Lymph % (Auto) [place] % (Auto) [place] # Seg Neutrophils % Seg Neuts % (Manual) Lymphocytes % (Manual) Monocytes % (Manual) Basophils % (Manual) Nucleated RBC % Seg Neutrophils # Seg Neutrophils # Man Lymphocytes # (Manual) Monocytes # (Manual) Eosinophils # (Manual) Basophils # (Manual) PT INR APTT Heparin Anti-Xa Level 0.27 L POC ABG pH POC ABG pCO2 POC ABG pO2 Sodium Potassium Chloride Carbon Dioxide BUN Creatinine Glucose POC Glucose 166 H Calcium Phosphorus Magnesium AST Alkaline Phosphatase C-Reactive Protein Total Protein Albumin Lipase Vitamin B12 TSH Urine WBC (Auto) Urine Chloride Urine Total Protein Vancomycin Trough Crossmatch 10/24/16 10/25/16 10/25/16 12:27 00:49 03:30 WBC RBC Hgb 8.8 L Hct 28.1 L MCV RDW Plt Count Lymph % (Auto) [place] % (Auto) [place] # Seg Neutrophils % Seg Neuts % (Manual) Lymphocytes % (Manual) Monocytes % (Manual) Basophils % (Manual) Nucleated RBC % Seg Neutrophils # Seg Neutrophils # Man Lymphocytes # (Manual) Monocytes # (Manual) Eosinophils # (Manual) Basophils # (Manual) PT INR APTT Heparin Anti-Xa Level POC ABG pH POC ABG pCO2 33.9 L POC ABG pO2 Sodium Potassium Chloride Carbon Dioxide BUN Creatinine Glucose POC Glucose 121 H Calcium Phosphorus Magnesium AST Alkaline Phosphatase C-Reactive Protein Total Protein Albumin Lipase Vitamin B12 TSH Urine WBC (Auto) Urine Chloride Urine Total Protein Vancomycin Trough Crossmatch 10/25/16 10/25/16 10/25/16 09:49 12:10 19:25 WBC 21.1 H RBC 3.02 L Hgb 9.3 L Hct 28.9 L MCV RDW 16.3 H Plt Count Lymph % (Auto) [place] % (Auto) [place] # Seg Neutrophils % Seg Neuts % (Manual) 81.0 H Lymphocytes % (Manual) 9.0 L Monocytes % (Manual) Basophils % (Manual) Nucleated RBC % Seg Neutrophils # Seg Neutrophils # Man 17.1 H Lymphocytes # (Manual) Monocytes # (Manual) Eosinophils # (Manual) Basophils # (Manual) PT INR APTT Heparin Anti-Xa Level POC ABG pH POC ABG pCO2 POC ABG pO2 Sodium Potassium Chloride Carbon Dioxide BUN Creatinine Glucose POC Glucose 158 H 151 H Calcium Phosphorus Magnesium AST Alkaline Phosphatase C-Reactive Protein Total Protein Albumin Lipase Vitamin B12 TSH Urine WBC (Auto) Urine Chloride Urine Total Protein Vancomycin Trough Crossmatch 10/26/16 10/26/16 10/26/16 00:20 01:09 05:02 WBC 22.2 H RBC 2.89 L Hgb 8.7 L Hct 27.8 L MCV RDW 16.4 H Plt Count Lymph % (Auto) [place] % (Auto) [place] # Seg Neutrophils % Seg Neuts % (Manual) Lymphocytes % (Manual) Monocytes % (Manual) Basophils % (Manual) Nucleated RBC % Seg Neutrophils # Seg Neutrophils # Man Lymphocytes # (Manual) Monocytes # (Manual) Eosinophils # (Manual) Basophils # (Manual) PT INR APTT Heparin Anti-Xa Level POC ABG pH POC ABG pCO2 POC ABG pO2 Sodium Potassium Chloride Carbon Dioxide BUN Creatinine Glucose POC Glucose 44 L 112 H Calcium Phosphorus Magnesium AST Alkaline Phosphatase C-Reactive Protein Total Protein Albumin Lipase Vitamin B12 TSH Urine WBC (Auto) Urine Chloride Urine Total Protein Vancomycin Trough Crossmatch 10/26/16 10/26/16 10/26/16 05:02 12:11 12:14 WBC RBC Hgb Hct MCV RDW Plt Count Lymph % (Auto) [place] % (Auto) [place] # Seg Neutrophils % Seg Neuts % (Manual) Lymphocytes % (Manual) Monocytes % (Manual) Basophils % (Manual) Nucleated RBC % Seg Neutrophils # Seg Neutrophils # Man Lymphocytes # (Manual) Monocytes # (Manual) Eosinophils # (Manual) Basophils # (Manual) PT INR APTT Heparin Anti-Xa Level POC ABG pH POC ABG pCO2 32.0 L POC ABG pO2 33 L Sodium Potassium 3.2 L D Chloride Carbon Dioxide 20 L BUN 24 H Creatinine Glucose 104 H POC Glucose 194 H Calcium 7.7 L Phosphorus Magnesium AST Alkaline Phosphatase C-Reactive Protein Total Protein Albumin Lipase Vitamin B12 TSH Urine WBC (Auto) Urine Chloride Urine Total Protein Vancomycin Trough Crossmatch 10/26/16 10/26/16 10/27/16 15:28 17:23 00:04 WBC RBC Hgb Hct MCV RDW Plt Count Lymph % (Auto) [place] % (Auto) [place] # Seg Neutrophils % Seg Neuts % (Manual) Lymphocytes % (Manual) Monocytes % (Manual) Basophils % (Manual) Nucleated RBC % Seg Neutrophils # Seg Neutrophils # Man Lymphocytes # (Manual) Monocytes # (Manual) Eosinophils # (Manual) Basophils # (Manual) PT INR APTT Heparin Anti-Xa Level POC ABG pH POC ABG pCO2 33.7 L POC ABG pO2 Sodium Potassium Chloride Carbon Dioxide BUN Creatinine Glucose POC Glucose 181 H 230 H Calcium Phosphorus Magnesium AST Alkaline Phosphatase C-Reactive Protein Total Protein Albumin Lipase Vitamin B12 TSH Urine WBC (Auto) Urine Chloride Urine Total Protein Vancomycin Trough Crossmatch 10/27/16 10/27/16 10/27/16 05:15 05:15 05:38 WBC 25.5 H RBC 3.07 L Hgb 9.4 L Hct 30.1 L MCV 98 H RDW 16.4 H Plt Count 527 H Lymph % (Auto) [place] % (Auto) [place] # Seg Neutrophils % Seg Neuts % (Manual) Lymphocytes % (Manual) Monocytes % (Manual) Basophils % (Manual) Nucleated RBC % Seg Neutrophils # Seg Neutrophils # Man Lymphocytes # (Manual) Monocytes # (Manual) Eosinophils # (Manual) Basophils # (Manual) PT INR APTT Heparin Anti-Xa Level POC ABG pH POC ABG pCO2 POC ABG pO2 Sodium Potassium Chloride Carbon Dioxide 19 L BUN 23 H Creatinine Glucose 160 H POC Glucose 168 H Calcium 8.0 L Phosphorus Magnesium AST Alkaline Phosphatase C-Reactive Protein Total Protein Albumin Lipase Vitamin B12 TSH Urine WBC (Auto) Urine Chloride Urine Total Protein Vancomycin Trough Crossmatch 10/27/16 10/27/16 10/27/16 11:59 18:35 23:48 WBC RBC Hgb Hct MCV RDW Plt Count Lymph % (Auto) [place] % (Auto) [place] # Seg Neutrophils % Seg Neuts % (Manual) Lymphocytes % (Manual) Monocytes % (Manual) Basophils % (Manual) Nucleated RBC % Seg Neutrophils # Seg Neutrophils # Man Lymphocytes # (Manual) Monocytes # (Manual) Eosinophils # (Manual) Basophils # (Manual) PT INR APTT Heparin Anti-Xa Level POC ABG pH POC ABG pCO2 POC ABG pO2 Sodium Potassium Chloride Carbon Dioxide BUN Creatinine Glucose POC Glucose 197 H 318 H 316 H Calcium Phosphorus Magnesium AST Alkaline Phosphatase C-Reactive Protein Total Protein Albumin Lipase Vitamin B12 TSH Urine WBC (Auto) Urine Chloride Urine Total Protein Vancomycin Trough Crossmatch 10/28/16 10/28/16 10/28/16 03:13 04:10 04:10 WBC 18.8 H RBC 2.64 L Hgb 8.1 L Hct 26.1 L MCV 99 H RDW 16.2 H Plt Count 544 H Lymph % (Auto) [place] % (Auto) [place] # Seg Neutrophils % Seg Neuts % (Manual) Lymphocytes % (Manual) Monocytes % (Manual) Basophils % (Manual) Nucleated RBC % Seg Neutrophils # Seg Neutrophils # Man Lymphocytes # (Manual) Monocytes # (Manual) Eosinophils # (Manual) Basophils # (Manual) PT INR APTT Heparin Anti-Xa Level POC ABG pH POC ABG pCO2 POC ABG pO2 Sodium Potassium Chloride Carbon Dioxide 21 L BUN 24 H Creatinine Glucose 302 H POC Glucose 304 H Calcium 7.7 L Phosphorus Magnesium AST Alkaline Phosphatase C-Reactive Protein Total Protein Albumin Lipase Vitamin B12 TSH Urine WBC (Auto) Urine Chloride Urine Total Protein Vancomycin Trough Crossmatch 10/28/16 10/28/16 10/28/16 04:10 12:36 18:27 WBC RBC Hgb Hct MCV RDW Plt Count Lymph % (Auto) [place] % (Auto) [place] # Seg Neutrophils % Seg Neuts % (Manual) Lymphocytes % (Manual) Monocytes % (Manual) Basophils % (Manual) Nucleated RBC % Seg Neutrophils # Seg Neutrophils # Man Lymphocytes # (Manual) Monocytes # (Manual) Eosinophils # (Manual) Basophils # (Manual) PT INR APTT Heparin Anti-Xa Level 0.20 L POC ABG pH POC ABG pCO2 POC ABG pO2 Sodium Potassium Chloride Carbon Dioxide BUN Creatinine Glucose POC Glucose 205 H 339 H Calcium Phosphorus Magnesium AST Alkaline Phosphatase C-Reactive Protein Total Protein Albumin Lipase Vitamin B12 TSH Urine WBC (Auto) Urine Chloride Urine Total Protein Vancomycin Trough Crossmatch 10/29/16 10/29/16 10/29/16 01:05 06:19 09:30 WBC 20.3 H RBC 2.80 L Hgb 8.5 L Hct 26.7 L MCV RDW 15.4 H Plt Count 571 H Lymph % (Auto) [place] % (Auto) [place] # Seg Neutrophils % Seg Neuts % (Manual) 75.0 H Lymphocytes % (Manual) 4.0 L Monocytes % (Manual) Basophils % (Manual) Nucleated RBC % Seg Neutrophils # Seg Neutrophils # Man 15.2 H Lymphocytes # (Manual) 0.8 L Monocytes # (Manual) Eosinophils # (Manual) Basophils # (Manual) PT INR APTT Heparin Anti-Xa Level POC ABG pH POC ABG pCO2 POC ABG pO2 Sodium Potassium Chloride Carbon Dioxide BUN Creatinine Glucose POC Glucose 275 H 179 H Calcium Phosphorus Magnesium AST Alkaline Phosphatase C-Reactive Protein Total Protein Albumin Lipase Vitamin B12 TSH Urine WBC (Auto) Urine Chloride Urine Total Protein Vancomycin Trough Crossmatch 10/29/16 10/29/16 10/29/16 11:46 15:18 17:55 WBC RBC Hgb Hct MCV RDW Plt Count Lymph % (Auto) [place] % (Auto) [place] # Seg Neutrophils % Seg Neuts % (Manual) Lymphocytes % (Manual) Monocytes % (Manual) Basophils % (Manual) Nucleated RBC % Seg Neutrophils # Seg Neutrophils # Man Lymphocytes # (Manual) Monocytes # (Manual) Eosinophils # (Manual) Basophils # (Manual) PT INR APTT Heparin Anti-Xa Level 1.15 H POC ABG pH POC ABG pCO2 POC ABG pO2 Sodium Potassium Chloride Carbon Dioxide BUN Creatinine Glucose POC Glucose 122 H 255 H Calcium Phosphorus Magnesium AST Alkaline Phosphatase C-Reactive Protein Total Protein Albumin Lipase Vitamin B12 TSH Urine WBC (Auto) Urine Chloride Urine Total Protein Vancomycin Trough Crossmatch 10/30/16 10/30/16 10/30/16 00:10 05:30 05:30 WBC 19.8 H RBC 2.51 L Hgb 7.7 L Hct 24.1 L MCV RDW 15.5 H Plt Count 534 H Lymph % (Auto) [place] % (Auto) [place] # Seg Neutrophils % Seg Neuts % (Manual) Lymphocytes % (Manual) Monocytes % (Manual) Basophils % (Manual) Nucleated RBC % Seg Neutrophils # Seg Neutrophils # Man Lymphocytes # (Manual) Monocytes # (Manual) Eosinophils # (Manual) Basophils # (Manual) PT INR APTT Heparin Anti-Xa Level POC ABG pH POC ABG pCO2 POC ABG pO2 Sodium Potassium Chloride Carbon Dioxide BUN Creatinine Glucose 211 H POC Glucose 202 H Calcium 7.4 L Phosphorus Magnesium AST Alkaline Phosphatase C-Reactive Protein Total Protein Albumin Lipase Vitamin B12 TSH Urine WBC (Auto) Urine Chloride Urine Total Protein Vancomycin Trough Crossmatch 10/30/16 10/30/16 10/30/16 06:32 12:51 17:47 WBC RBC Hgb Hct MCV RDW Plt Count Lymph % (Auto) [place] % (Auto) [place] # Seg Neutrophils % Seg Neuts % (Manual) Lymphocytes % (Manual) Monocytes % (Manual) Basophils % (Manual) Nucleated RBC % Seg Neutrophils # Seg Neutrophils # Man Lymphocytes # (Manual) Monocytes # (Manual) Eosinophils # (Manual) Basophils # (Manual) PT INR APTT Heparin Anti-Xa Level POC ABG pH POC ABG pCO2 POC ABG pO2 Sodium Potassium Chloride Carbon Dioxide BUN Creatinine Glucose POC Glucose 207 H 218 H 169 H Calcium Phosphorus Magnesium AST Alkaline Phosphatase C-Reactive Protein Total Protein Albumin Lipase Vitamin B12 TSH Urine WBC (Auto) Urine Chloride Urine Total Protein Vancomycin Trough Crossmatch 10/30/16 10/31/16 10/31/16 23:59 05:25 11:21 WBC RBC Hgb Hct MCV RDW Plt Count Lymph % (Auto) [place] % (Auto) [place] # Seg Neutrophils % Seg Neuts % (Manual) Lymphocytes % (Manual) Monocytes % (Manual) Basophils % (Manual) Nucleated RBC % Seg Neutrophils # Seg Neutrophils # Man Lymphocytes # (Manual) Monocytes # (Manual) Eosinophils # (Manual) Basophils # (Manual) PT INR APTT Heparin Anti-Xa Level POC ABG pH POC ABG pCO2 POC ABG pO2 Sodium Potassium Chloride Carbon Dioxide BUN Creatinine Glucose POC Glucose 138 H 127 H 132 H Calcium Phosphorus Magnesium AST Alkaline Phosphatase C-Reactive Protein Total Protein Albumin Lipase Vitamin B12 TSH Urine WBC (Auto) Urine Chloride Urine Total Protein Vancomycin Trough Crossmatch 10/31/16 10/31/16 11/01/16 17:07 23:54 05:47 WBC RBC Hgb Hct MCV RDW Plt Count Lymph % (Auto) [place] % (Auto) [place] # Seg Neutrophils % Seg Neuts % (Manual) Lymphocytes % (Manual) Monocytes % (Manual) Basophils % (Manual) Nucleated RBC % Seg Neutrophils # Seg Neutrophils # Man Lymphocytes # (Manual) Monocytes # (Manual) Eosinophils # (Manual) Basophils # (Manual) PT INR APTT Heparin Anti-Xa Level POC ABG pH POC ABG pCO2 POC ABG pO2 Sodium Potassium Chloride Carbon Dioxide BUN Creatinine Glucose POC Glucose 138 H 153 H 150 H Calcium Phosphorus Magnesium AST Alkaline Phosphatase C-Reactive Protein Total Protein Albumin Lipase Vitamin B12 TSH Urine WBC (Auto) Urine Chloride Urine Total Protein Vancomycin Trough Crossmatch 11/01/16 11/01/16 11/01/16 06:33 06:33 12:16 WBC 19.2 H RBC 2.51 L Hgb 7.9 L Hct 24.8 L MCV 99 H D RDW 16.1 H Plt Count 569 H Lymph % (Auto) [place] % (Auto) [place] # Seg Neutrophils % Seg Neuts % (Manual) Lymphocytes % (Manual) Monocytes % (Manual) Basophils % (Manual) Nucleated RBC % Seg Neutrophils # Seg Neutrophils # Man Lymphocytes # (Manual) Monocytes # (Manual) Eosinophils # (Manual) Basophils # (Manual) PT INR APTT Heparin Anti-Xa Level POC ABG pH POC ABG pCO2 POC ABG pO2 Sodium Potassium 3.5 L Chloride Carbon Dioxide 21 L BUN Creatinine Glucose 137 H POC Glucose 125 H Calcium 7.7 L Phosphorus Magnesium AST Alkaline Phosphatase 148 H C-Reactive Protein Total Protein 6.2 L Albumin 2.0 L Lipase Vitamin B12 TSH Urine WBC (Auto) Urine Chloride Urine Total Protein Vancomycin Trough Crossmatch 11/01/16 11/02/16 11/02/16 17:37 00:05 04:15 WBC RBC Hgb Hct MCV RDW Plt Count Lymph % (Auto) [place] % (Auto) [place] # Seg Neutrophils % Seg Neuts % (Manual) Lymphocytes % (Manual) Monocytes % (Manual) Basophils % (Manual) Nucleated RBC % Seg Neutrophils # Seg Neutrophils # Man Lymphocytes # (Manual) Monocytes # (Manual) Eosinophils # (Manual) Basophils # (Manual) PT INR APTT Heparin Anti-Xa Level < 0.10 L POC ABG pH POC ABG pCO2 POC ABG pO2 Sodium Potassium 3.2 L Chloride Carbon Dioxide BUN 6 L Creatinine Glucose 135 H POC Glucose 164 H Calcium 7.5 L Phosphorus Magnesium AST Alkaline Phosphatase 132 H C-Reactive Protein Total Protein 6.2 L Albumin 1.8 L Lipase Vitamin B12 TSH Urine WBC (Auto) Urine Chloride Urine Total Protein Vancomycin Trough Crossmatch 11/02/16 11/02/16 11/02/16 04:15 05:54 12:15 WBC 17.7 H RBC 2.43 L Hgb 7.6 L Hct 23.5 L MCV RDW 15.9 H Plt Count 502 H Lymph % (Auto) [place] % (Auto) [place] # Seg Neutrophils % Seg Neuts % (Manual) 84.0 H Lymphocytes % (Manual) 11.0 L Monocytes % (Manual) Basophils % (Manual) Nucleated RBC % 1.0 H Seg Neutrophils # Seg Neutrophils # Man 14.9 H Lymphocytes # (Manual) Monocytes # (Manual) Eosinophils # (Manual) Basophils # (Manual) PT INR APTT Heparin Anti-Xa Level POC ABG pH POC ABG pCO2 POC ABG pO2 Sodium Potassium Chloride Carbon Dioxide BUN Creatinine Glucose POC Glucose 152 H 137 H Calcium Phosphorus Magnesium AST Alkaline Phosphatase C-Reactive Protein Total Protein Albumin Lipase Vitamin B12 TSH Urine WBC (Auto) Urine Chloride Urine Total Protein Vancomycin Trough Crossmatch 11/02/16 11/03/16 11/03/16 17:00 00:05 00:05 WBC RBC Hgb Hct MCV RDW Plt Count Lymph % (Auto) [place] % (Auto) [place] # Seg Neutrophils % Seg Neuts % (Manual) Lymphocytes % (Manual) Monocytes % (Manual) Basophils % (Manual) Nucleated RBC % Seg Neutrophils # Seg Neutrophils # Man Lymphocytes # (Manual) Monocytes # (Manual) Eosinophils # (Manual) Basophils # (Manual) PT INR APTT Heparin Anti-Xa Level POC ABG pH POC ABG pCO2 POC ABG pO2 Sodium Potassium Chloride Carbon Dioxide 20 L BUN 5 L Creatinine Glucose 139 H POC Glucose 161 H Calcium 6.7 L Phosphorus Magnesium 1.2 L AST Alkaline Phosphatase C-Reactive Protein Total Protein Albumin Lipase Vitamin B12 TSH Urine WBC (Auto) Urine Chloride Urine Total Protein Vancomycin Trough Crossmatch 11/03/16 11/03/16 11/03/16 00:05 02:05 04:23 WBC 15.9 H 14.0 H RBC 1.93 L 2.38 L Hgb 5.9 L* 7.3 L Hct 18.9 L* 23.1 L MCV 98 H RDW 15.9 H 15.9 H Plt Count Lymph % (Auto) [place] % (Auto) [place] # Seg Neutrophils % Seg Neuts % (Manual) 85.0 H Lymphocytes % (Manual) 4.0 L Monocytes % (Manual) Basophils % (Manual) Nucleated RBC % Seg Neutrophils # Seg Neutrophils # Man 13.5 H Lymphocytes # (Manual) 0.6 L Monocytes # (Manual) Eosinophils # (Manual) Basophils # (Manual) PT INR APTT Heparin Anti-Xa Level POC ABG pH POC ABG pCO2 POC ABG pO2 Sodium Potassium Chloride Carbon Dioxide BUN 5 L Creatinine Glucose 127 H POC Glucose Calcium 7.2 L Phosphorus Magnesium AST Alkaline Phosphatase C-Reactive Protein Total Protein 5.8 L Albumin 1.5 L Lipase Vitamin B12 TSH Urine WBC (Auto) Urine Chloride Urine Total Protein Vancomycin Trough Crossmatch 11/03/16 11/03/16 11/03/16 09:14 09:27 11:54 WBC RBC Hgb Hct MCV RDW Plt Count Lymph % (Auto) [place] % (Auto) [place] # Seg Neutrophils % Seg Neuts % (Manual) Lymphocytes % (Manual) Monocytes % (Manual) Basophils % (Manual) Nucleated RBC % Seg Neutrophils # Seg Neutrophils # Man Lymphocytes # (Manual) Monocytes # (Manual) Eosinophils # (Manual) Basophils # (Manual) PT INR APTT Heparin Anti-Xa Level 0.11 L POC ABG pH POC ABG pCO2 POC ABG pO2 Sodium Potassium Chloride Carbon Dioxide BUN 5 L Creatinine Glucose 111 H POC Glucose 139 H Calcium 6.7 L Phosphorus Magnesium AST Alkaline Phosphatase C-Reactive Protein Total Protein Albumin Lipase Vitamin B12 TSH Urine WBC (Auto) Urine Chloride Urine Total Protein Vancomycin Trough Crossmatch 11/03/16 11/03/16 11/03/16 16:26 18:01 18:01 WBC RBC Hgb Hct MCV RDW Plt Count Lymph % (Auto) [place] % (Auto) [place] # Seg Neutrophils % Seg Neuts % (Manual) Lymphocytes % (Manual) Monocytes % (Manual) Basophils % (Manual) Nucleated RBC % Seg Neutrophils # Seg Neutrophils # Man Lymphocytes # (Manual) Monocytes # (Manual) Eosinophils # (Manual) Basophils # (Manual) PT INR APTT Heparin Anti-Xa Level 2.00 H POC ABG pH POC ABG pCO2 POC ABG pO2 Sodium Potassium Chloride Carbon Dioxide BUN Creatinine Glucose POC Glucose 142 H Calcium Phosphorus Magnesium AST Alkaline Phosphatase C-Reactive Protein Total Protein Albumin Lipase Vitamin B12 TSH Urine WBC (Auto) Urine Chloride Urine Total Protein Vancomycin Trough Crossmatch See Detail 11/04/16 11/04/16 11/04/16 02:15 02:15 06:35 WBC 11.8 H RBC 2.39 L Hgb 7.4 L Hct 23.1 L MCV RDW 15.9 H Plt Count Lymph % (Auto) [place] % (Auto) [place] # Seg Neutrophils % Seg Neuts % (Manual) 76.0 H Lymphocytes % (Manual) 12.0 L Monocytes % (Manual) 9.0 H Basophils % (Manual) Nucleated RBC % Seg Neutrophils # Seg Neutrophils # Man 9.0 H Lymphocytes # (Manual) Monocytes # (Manual) 1.1 H Eosinophils # (Manual) Basophils # (Manual) PT INR APTT Heparin Anti-Xa Level < 0.10 L POC ABG pH POC ABG pCO2 POC ABG pO2 Sodium Potassium Chloride Carbon Dioxide 21 L BUN 5 L Creatinine Glucose 112 H POC Glucose Calcium 6.8 L Phosphorus Magnesium AST Alkaline Phosphatase C-Reactive Protein Total Protein 5.7 L Albumin 1.7 L Lipase Vitamin B12 TSH Urine WBC (Auto) Urine Chloride Urine Total Protein Vancomycin Trough Crossmatch 11/04/16 11/04/16 11/04/16 10:51 12:58 15:04 WBC RBC Hgb Hct MCV RDW Plt Count Lymph % (Auto) [place] % (Auto) [place] # Seg Neutrophils % Seg Neuts % (Manual) Lymphocytes % (Manual) Monocytes % (Manual) Basophils % (Manual) Nucleated RBC % Seg Neutrophils # Seg Neutrophils # Man Lymphocytes # (Manual) Monocytes # (Manual) Eosinophils # (Manual) Basophils # (Manual) PT INR APTT Heparin Anti-Xa Level 1.05 H POC ABG pH POC ABG pCO2 33.7 L POC ABG pO2 60 L Sodium Potassium Chloride Carbon Dioxide BUN Creatinine Glucose POC Glucose 118 H Calcium Phosphorus Magnesium AST Alkaline Phosphatase C-Reactive Protein Total Protein Albumin Lipase Vitamin B12 TSH Urine WBC (Auto) Urine Chloride Urine Total Protein Vancomycin Trough Crossmatch 11/04/16 11/04/16 11/05/16 17:20 20:31 02:30 WBC RBC Hgb Hct MCV RDW Plt Count Lymph % (Auto) [place] % (Auto) [place] # Seg Neutrophils % Seg Neuts % (Manual) Lymphocytes % (Manual) Monocytes % (Manual) Basophils % (Manual) Nucleated RBC % Seg Neutrophils # Seg Neutrophils # Man Lymphocytes # (Manual) Monocytes # (Manual) Eosinophils # (Manual) Basophils # (Manual) PT INR APTT Heparin Anti-Xa Level POC ABG pH POC ABG pCO2 POC ABG pO2 Sodium Potassium 3.5 L Chloride Carbon Dioxide 18 L BUN 5 L Creatinine 0.6 L Glucose 110 H POC Glucose 228 H 169 H Calcium 7.1 L Phosphorus Magnesium AST Alkaline Phosphatase C-Reactive Protein Total Protein Albumin 1.9 L Lipase Vitamin B12 TSH Urine WBC (Auto) Urine Chloride Urine Total Protein Vancomycin Trough Crossmatch 11/05/16 11/05/16 11/05/16 02:30 17:52 21:07 WBC 14.1 H RBC Hgb Hct MCV RDW 16.7 H Plt Count Lymph % (Auto) [place] % (Auto) [place] # Seg Neutrophils % Seg Neuts % (Manual) 80.0 H Lymphocytes % (Manual) 6.0 L Monocytes % (Manual) 8.0 H Basophils % (Manual) Nucleated RBC % Seg Neutrophils # Seg Neutrophils # Man 11.3 H Lymphocytes # (Manual) 0.8 L Monocytes # (Manual) 1.1 H Eosinophils # (Manual) Basophils # (Manual) PT INR APTT Heparin Anti-Xa Level < 0.10 L POC ABG pH POC ABG pCO2 POC ABG pO2 Sodium Potassium Chloride Carbon Dioxide BUN Creatinine Glucose POC Glucose 174 H Calcium Phosphorus Magnesium AST Alkaline Phosphatase C-Reactive Protein Total Protein Albumin Lipase Vitamin B12 TSH Urine WBC (Auto) Urine Chloride Urine Total Protein Vancomycin Trough Crossmatch 11/05/16 11/06/16 11/06/16 23:30 05:00 05:00 WBC 15.2 H RBC 3.29 L Hgb 10.0 L Hct MCV RDW 16.9 H Plt Count Lymph % (Auto) [place] % (Auto) [place] # Seg Neutrophils % Seg Neuts % (Manual) Lymphocytes % (Manual) Monocytes % (Manual) Basophils % (Manual) Nucleated RBC % Seg Neutrophils # Seg Neutrophils # Man Lymphocytes # (Manual) Monocytes # (Manual) Eosinophils # (Manual) Basophils # (Manual) PT INR APTT Heparin Anti-Xa Level 0.94 H POC ABG pH POC ABG pCO2 POC ABG pO2 Sodium Potassium Chloride Carbon Dioxide BUN Creatinine Glucose POC Glucose 131 H Calcium Phosphorus Magnesium AST Alkaline Phosphatase C-Reactive Protein Total Protein Albumin Lipase Vitamin B12 TSH Urine WBC (Auto) Urine Chloride Urine Total Protein Vancomycin Trough Crossmatch 11/06/16 11/06/16 11/06/16 05:00 11:45 18:23 WBC RBC Hgb Hct MCV RDW Plt Count Lymph % (Auto) [place] % (Auto) [place] # Seg Neutrophils % Seg Neuts % (Manual) Lymphocytes % (Manual) Monocytes % (Manual) Basophils % (Manual) Nucleated RBC % Seg Neutrophils # Seg Neutrophils # Man Lymphocytes # (Manual) Monocytes # (Manual) Eosinophils # (Manual) Basophils # (Manual) PT INR APTT Heparin Anti-Xa Level POC ABG pH POC ABG pCO2 POC ABG pO2 Sodium Potassium 3.5 L Chloride 107.1 H Carbon Dioxide 20 L BUN 4 L Creatinine 0.6 L Glucose 104 H POC Glucose 141 H 255 H Calcium 6.7 L Phosphorus Magnesium AST Alkaline Phosphatase C-Reactive Protein Total Protein Albumin Lipase Vitamin B12 TSH Urine WBC (Auto) Urine Chloride Urine Total Protein Vancomycin Trough Crossmatch 11/06/16 11/06/16 11/07/16 22:07 23:07 11:41 WBC RBC Hgb Hct MCV RDW Plt Count Lymph % (Auto) [place] % (Auto) [place] # Seg Neutrophils % Seg Neuts % (Manual) Lymphocytes % (Manual) Monocytes % (Manual) Basophils % (Manual) Nucleated RBC % Seg Neutrophils # Seg Neutrophils # Man Lymphocytes # (Manual) Monocytes # (Manual) Eosinophils # (Manual) Basophils # (Manual) PT INR APTT Heparin Anti-Xa Level 0.80 H POC ABG pH POC ABG pCO2 POC ABG pO2 Sodium Potassium Chloride Carbon Dioxide BUN Creatinine Glucose POC Glucose 183 H 132 H Calcium Phosphorus Magnesium AST Alkaline Phosphatase C-Reactive Protein Total Protein Albumin Lipase Vitamin B12 TSH Urine WBC (Auto) Urine Chloride Urine Total Protein Vancomycin Trough Crossmatch 11/07/16 11/07/16 11/07/16 12:17 17:05 17:58 WBC RBC Hgb Hct MCV RDW Plt Count Lymph % (Auto) [place] % (Auto) [place] # Seg Neutrophils % Seg Neuts % (Manual) Lymphocytes % (Manual) Monocytes % (Manual) Basophils % (Manual) Nucleated RBC % Seg Neutrophils # Seg Neutrophils # Man Lymphocytes # (Manual) Monocytes # (Manual) Eosinophils # (Manual) Basophils # (Manual) PT INR APTT Heparin Anti-Xa Level 0.87 H POC ABG pH 7.324 L POC ABG pCO2 POC ABG pO2 Sodium Potassium Chloride Carbon Dioxide BUN Creatinine Glucose POC Glucose 158 H Calcium Phosphorus Magnesium AST Alkaline Phosphatase C-Reactive Protein Total Protein Albumin Lipase Vitamin B12 TSH Urine WBC (Auto) Urine Chloride Urine Total Protein Vancomycin Trough Crossmatch 11/07/16 11/07/16 11/07/16 23:26 Unknown Unknown WBC 12.3 H RBC 2.96 L Hgb 9.1 L Hct 27.9 L MCV RDW 16.8 H Plt Count Lymph % (Auto) [place] % (Auto) [place] # Seg Neutrophils % Seg Neuts % (Manual) 80.0 H Lymphocytes % (Manual) 7.0 L Monocytes % (Manual) Basophils % (Manual) Nucleated RBC % Seg Neutrophils # Seg Neutrophils # Man 9.8 H Lymphocytes # (Manual) 0.9 L Monocytes # (Manual) Eosinophils # (Manual) Basophils # (Manual) PT INR APTT Heparin Anti-Xa Level POC ABG pH POC ABG pCO2 POC ABG pO2 Sodium Potassium Chloride Carbon Dioxide 19 L BUN Creatinine Glucose 106 H POC Glucose 130 H Calcium 6.9 L Phosphorus Magnesium AST Alkaline Phosphatase C-Reactive Protein Total Protein Albumin Lipase Vitamin B12 TSH Urine WBC (Auto) Urine Chloride Urine Total Protein Vancomycin Trough Crossmatch 11/07/16 11/08/16 11/08/16 Unknown 05:14 05:20 WBC 12.4 H RBC 3.04 L Hgb 9.2 L Hct 28.8 L MCV RDW 16.6 H Plt Count Lymph % (Auto) [place] % (Auto) [place] # Seg Neutrophils % Seg Neuts % (Manual) 77.0 H Lymphocytes % (Manual) 5.0 L Monocytes % (Manual) Basophils % (Manual) 2.0 H Nucleated RBC % Seg Neutrophils # Seg Neutrophils # Man 9.5 H Lymphocytes # (Manual) 0.6 L Monocytes # (Manual) Eosinophils # (Manual) Basophils # (Manual) 0.2 H PT INR APTT Heparin Anti-Xa Level 0.90 H POC ABG pH POC ABG pCO2 POC ABG pO2 Sodium Potassium Chloride Carbon Dioxide BUN Creatinine Glucose POC Glucose 204 H Calcium Phosphorus Magnesium AST Alkaline Phosphatase C-Reactive Protein Total Protein Albumin Lipase Vitamin B12 TSH Urine WBC (Auto) Urine Chloride Urine Total Protein Vancomycin Trough Crossmatch 11/08/16 11/08/16 11/08/16 05:20 12:10 13:10 WBC RBC Hgb Hct MCV RDW Plt Count Lymph % (Auto) [place] % (Auto) [place] # Seg Neutrophils % Seg Neuts % (Manual) Lymphocytes % (Manual) Monocytes % (Manual) Basophils % (Manual) Nucleated RBC % Seg Neutrophils # Seg Neutrophils # Man Lymphocytes # (Manual) Monocytes # (Manual) Eosinophils # (Manual) Basophils # (Manual) PT INR APTT Heparin Anti-Xa Level POC ABG pH POC ABG pCO2 33.7 L POC ABG pO2 Sodium 136 L Potassium Chloride Carbon Dioxide 19 L BUN Creatinine Glucose 192 H POC Glucose 180 H Calcium 7.1 L Phosphorus Magnesium AST Alkaline Phosphatase C-Reactive Protein Total Protein Albumin Lipase Vitamin B12 TSH Urine WBC (Auto) Urine Chloride Urine Total Protein Vancomycin Trough Crossmatch 11/08/16 11/08/16 11/08/16 17:26 20:45 23:34 WBC RBC Hgb Hct MCV RDW Plt Count Lymph % (Auto) [place] % (Auto) [place] # Seg Neutrophils % Seg Neuts % (Manual) Lymphocytes % (Manual) Monocytes % (Manual) Basophils % (Manual) Nucleated RBC % Seg Neutrophils # Seg Neutrophils # Man Lymphocytes # (Manual) Monocytes # (Manual) Eosinophils # (Manual) Basophils # (Manual) PT INR APTT Heparin Anti-Xa Level POC ABG pH POC ABG pCO2 POC ABG pO2 Sodium Potassium Chloride Carbon Dioxide BUN Creatinine Glucose POC Glucose 187 H 178 H Calcium Phosphorus Magnesium AST Alkaline Phosphatase C-Reactive Protein Total Protein Albumin Lipase Vitamin B12 TSH Urine WBC (Auto) Urine Chloride Urine Total Protein Vancomycin Trough 35.4 H Crossmatch 11/09/16 11/09/16 11/09/16 05:30 05:30 05:59 WBC 11.5 H RBC 2.96 L Hgb 9.2 L Hct 28.2 L MCV RDW 16.4 H Plt Count Lymph % (Auto) [place] % (Auto) [place] # Seg Neutrophils % Seg Neuts % (Manual) 76.0 H Lymphocytes % (Manual) 2.0 L Monocytes % (Manual) Basophils % (Manual) Nucleated RBC % Seg Neutrophils # Seg Neutrophils # Man 8.7 H Lymphocytes # (Manual) 0.2 L Monocytes # (Manual) Eosinophils # (Manual) Basophils # (Manual) PT INR APTT Heparin Anti-Xa Level POC ABG pH POC ABG pCO2 POC ABG pO2 Sodium Potassium 3.4 L Chloride 107.6 H Carbon Dioxide 19 L BUN Creatinine 0.6 L Glucose 207 H POC Glucose 263 H Calcium 7.3 L Phosphorus Magnesium AST Alkaline Phosphatase C-Reactive Protein Total Protein Albumin Lipase Vitamin B12 TSH Urine WBC (Auto) Urine Chloride Urine Total Protein Vancomycin Trough Crossmatch 11/09/16 11/09/16 11/09/16 11:49 15:24 18:04 WBC RBC Hgb Hct MCV RDW Plt Count Lymph % (Auto) [place] % (Auto) [place] # Seg Neutrophils % Seg Neuts % (Manual) Lymphocytes % (Manual) Monocytes % (Manual) Basophils % (Manual) Nucleated RBC % Seg Neutrophils # Seg Neutrophils # Man Lymphocytes # (Manual) Monocytes # (Manual) Eosinophils # (Manual) Basophils # (Manual) PT INR APTT Heparin Anti-Xa Level POC ABG pH POC ABG pCO2 33.8 L POC ABG pO2 131 H Sodium Potassium Chloride Carbon Dioxide BUN Creatinine Glucose POC Glucose 269 H 242 H Calcium Phosphorus Magnesium AST Alkaline Phosphatase C-Reactive Protein Total Protein Albumin Lipase Vitamin B12 TSH Urine WBC (Auto) Urine Chloride Urine Total Protein Vancomycin Trough Crossmatch 11/09/16 11/10/16 11/10/16 22:57 04:30 04:30 WBC 15.7 H RBC 3.17 L Hgb 9.7 L Hct 30.2 L MCV RDW 16.2 H Plt Count Lymph % (Auto) [place] % (Auto) [place] # Seg Neutrophils % Seg Neuts % (Manual) Lymphocytes % (Manual) Monocytes % (Manual) Basophils % (Manual) Nucleated RBC % Seg Neutrophils # Seg Neutrophils # Man 8.5 H Lymphocytes # (Manual) Monocytes # (Manual) Eosinophils # (Manual) 0.5 H Basophils # (Manual) PT INR APTT Heparin Anti-Xa Level POC ABG pH POC ABG pCO2 POC ABG pO2 Sodium Potassium Chloride Carbon Dioxide 19 L BUN Creatinine 0.6 L Glucose 199 H POC Glucose 239 H Calcium 7.8 L Phosphorus Magnesium AST Alkaline Phosphatase C-Reactive Protein Total Protein Albumin Lipase Vitamin B12 TSH Urine WBC (Auto) Urine Chloride Urine Total Protein Vancomycin Trough Crossmatch 11/10/16 11/10/16 11/10/16 04:30 11:32 16:00 WBC RBC Hgb Hct MCV RDW Plt Count Lymph % (Auto) [place] % (Auto) [place] # Seg Neutrophils % Seg Neuts % (Manual) Lymphocytes % (Manual) Monocytes % (Manual) Basophils % (Manual) Nucleated RBC % Seg Neutrophils # Seg Neutrophils # Man Lymphocytes # (Manual) Monocytes # (Manual) Eosinophils # (Manual) Basophils # (Manual) PT INR APTT Heparin Anti-Xa Level 1.09 H < 0.10 L POC ABG pH POC ABG pCO2 POC ABG pO2 Sodium Potassium Chloride Carbon Dioxide BUN Creatinine Glucose POC Glucose 211 H Calcium Phosphorus Magnesium AST Alkaline Phosphatase C-Reactive Protein Total Protein Albumin Lipase Vitamin B12 TSH Urine WBC (Auto) Urine Chloride Urine Total Protein Vancomycin Trough Crossmatch 11/10/16 11/10/16 11/10/16 17:39 18:00 23:06 WBC RBC Hgb Hct MCV RDW Plt Count Lymph % (Auto) [place] % (Auto) [place] # Seg Neutrophils % Seg Neuts % (Manual) Lymphocytes % (Manual) Monocytes % (Manual) Basophils % (Manual) Nucleated RBC % Seg Neutrophils # Seg Neutrophils # Man Lymphocytes # (Manual) Monocytes # (Manual) Eosinophils # (Manual) Basophils # (Manual) PT INR APTT Heparin Anti-Xa Level 0.85 H POC ABG pH POC ABG pCO2 POC ABG pO2 Sodium Potassium Chloride Carbon Dioxide BUN Creatinine Glucose POC Glucose 249 H 220 H Calcium Phosphorus Magnesium AST Alkaline Phosphatase C-Reactive Protein Total Protein Albumin Lipase Vitamin B12 TSH Urine WBC (Auto) Urine Chloride Urine Total Protein Vancomycin Trough Crossmatch 03/26/17 03/26/17 03/26/17 05:56 06:15 06:15 WBC 13.3 H RBC 2.87 L Hgb 8.7 L Hct 27.2 L MCV RDW 16.4 H Plt Count Lymph % (Auto) [place] % (Auto) [place] # 0.9 H Seg Neutrophils % 78.9 H Seg Neuts % (Manual) Lymphocytes % (Manual) Monocytes % (Manual) Basophils % (Manual) Nucleated RBC % Seg Neutrophils # 10.5 H Seg Neutrophils # Man Lymphocytes # (Manual) Monocytes # (Manual) Eosinophils # (Manual) Basophils # (Manual) PT INR APTT Heparin Anti-Xa Level POC ABG pH POC ABG pCO2 POC ABG pO2 Sodium Potassium 3.2 L Chloride Carbon Dioxide 19 L BUN Creatinine Glucose POC Glucose 117 H Calcium 7.6 L Phosphorus Magnesium AST Alkaline Phosphatase C-Reactive Protein Total Protein Albumin Lipase Vitamin B12 TSH Urine WBC (Auto) Urine Chloride Urine Total Protein Vancomycin Trough Crossmatch 11/11/16 11/11/16 11/11/16 12:26 16:58 17:33 WBC RBC Hgb Hct MCV RDW Plt Count Lymph % (Auto) [place] % (Auto) [place] # Seg Neutrophils % Seg Neuts % (Manual) Lymphocytes % (Manual) Monocytes % (Manual) Basophils % (Manual) Nucleated RBC % Seg Neutrophils # Seg Neutrophils # Man Lymphocytes # (Manual) Monocytes # (Manual) Eosinophils # (Manual) Basophils # (Manual) PT INR APTT Heparin Anti-Xa Level < 0.10 L POC ABG pH POC ABG pCO2 POC ABG pO2 Sodium Potassium Chloride Carbon Dioxide BUN Creatinine Glucose POC Glucose 114 H 161 H Calcium Phosphorus Magnesium AST Alkaline Phosphatase C-Reactive Protein Total Protein Albumin Lipase Vitamin B12 TSH Urine WBC (Auto) Urine Chloride Urine Total Protein Vancomycin Trough Crossmatch 11/12/16 11/12/16 11/12/16 05:00 05:00 05:00 WBC 12.8 H RBC 2.75 L Hgb 8.4 L Hct 25.7 L MCV RDW 16.3 H Plt Count Lymph % (Auto) [place] % (Auto) 7.5 H [place] # 1.0 H Seg Neutrophils % 78.0 H Seg Neuts % (Manual) Lymphocytes % (Manual) Monocytes % (Manual) Basophils % (Manual) Nucleated RBC % Seg Neutrophils # 10.0 H Seg Neutrophils # Man Lymphocytes # (Manual) Monocytes # (Manual) Eosinophils # (Manual) Basophils # (Manual) PT INR APTT Heparin Anti-Xa Level 0.87 H POC ABG pH POC ABG pCO2 POC ABG pO2 Sodium Potassium 3.4 L Chloride Carbon Dioxide 19 L BUN Creatinine Glucose 112 H POC Glucose Calcium 7.7 L Phosphorus Magnesium AST Alkaline Phosphatase C-Reactive Protein Total Protein Albumin Lipase Vitamin B12 TSH Urine WBC (Auto) Urine Chloride Urine Total Protein Vancomycin Trough Crossmatch 11/12/16 11/12/16 11/13/16 11:18 16:40 00:44 WBC RBC Hgb Hct MCV RDW Plt Count Lymph % (Auto) [place] % (Auto) [place] # Seg Neutrophils % Seg Neuts % (Manual) Lymphocytes % (Manual) Monocytes % (Manual) Basophils % (Manual) Nucleated RBC % Seg Neutrophils # Seg Neutrophils # Man Lymphocytes # (Manual) Monocytes # (Manual) Eosinophils # (Manual) Basophils # (Manual) PT INR APTT Heparin Anti-Xa Level POC ABG pH POC ABG pCO2 POC ABG pO2 Sodium Potassium Chloride Carbon Dioxide BUN Creatinine Glucose POC Glucose 135 H 139 H 169 H Calcium Phosphorus Magnesium AST Alkaline Phosphatase C-Reactive Protein Total Protein Albumin Lipase Vitamin B12 TSH Urine WBC (Auto) Urine Chloride Urine Total Protein Vancomycin Trough Crossmatch 11/13/16 11/13/16 11/13/16 05:28 05:28 06:02 WBC 12.7 H RBC 2.93 L Hgb 9.0 L Hct 27.6 L MCV RDW 16.1 H Plt Count Lymph % (Auto) [place] % (Auto) [place] # Seg Neutrophils % 78.6 H Seg Neuts % (Manual) Lymphocytes % (Manual) Monocytes % (Manual) Basophils % (Manual) Nucleated RBC % Seg Neutrophils # 10.0 H Seg Neutrophils # Man Lymphocytes # (Manual) Monocytes # (Manual) Eosinophils # (Manual) Basophils # (Manual) PT INR APTT Heparin Anti-Xa Level POC ABG pH POC ABG pCO2 POC ABG pO2 Sodium Potassium Chloride Carbon Dioxide 17 L BUN Creatinine Glucose 116 H POC Glucose 112 H Calcium 7.8 L Phosphorus Magnesium AST Alkaline Phosphatase C-Reactive Protein Total Protein Albumin Lipase Vitamin B12 TSH Urine WBC (Auto) Urine Chloride Urine Total Protein Vancomycin Trough Crossmatch 11/13/16 11/13/16 11/13/16 12:34 16:55 17:00 WBC RBC Hgb Hct MCV RDW Plt Count Lymph % (Auto) [place] % (Auto) [place] # Seg Neutrophils % Seg Neuts % (Manual) Lymphocytes % (Manual) Monocytes % (Manual) Basophils % (Manual) Nucleated RBC % Seg Neutrophils # Seg Neutrophils # Man Lymphocytes # (Manual) Monocytes # (Manual) Eosinophils # (Manual) Basophils # (Manual) PT INR APTT Heparin Anti-Xa Level POC ABG pH POC ABG pCO2 22.9 L POC ABG pO2 53 L Sodium Potassium Chloride Carbon Dioxide BUN Creatinine Glucose POC Glucose 109 H 122 H Calcium Phosphorus Magnesium AST Alkaline Phosphatase C-Reactive Protein Total Protein Albumin Lipase Vitamin B12 TSH Urine WBC (Auto) Urine Chloride Urine Total Protein Vancomycin Trough Crossmatch 11/13/16 11/14/16 11/14/16 23:33 04:42 04:42 WBC 11.7 H RBC 3.01 L Hgb 9.3 L Hct 28.9 L MCV RDW 16.5 H Plt Count Lymph % (Auto) [place] % (Auto) [place] # Seg Neutrophils % Seg Neuts % (Manual) 79.0 H Lymphocytes % (Manual) 10.0 L Monocytes % (Manual) Basophils % (Manual) Nucleated RBC % Seg Neutrophils # Seg Neutrophils # Man 9.2 H Lymphocytes # (Manual) Monocytes # (Manual) Eosinophils # (Manual) Basophils # (Manual) PT INR APTT Heparin Anti-Xa Level POC ABG pH POC ABG pCO2 POC ABG pO2 Sodium Potassium Chloride Carbon Dioxide 16 L BUN Creatinine Glucose 102 H POC Glucose 173 H Calcium 7.5 L Phosphorus Magnesium AST Alkaline Phosphatase C-Reactive Protein Total Protein Albumin Lipase Vitamin B12 TSH Urine WBC (Auto) Urine Chloride Urine Total Protein Vancomycin Trough Crossmatch 11/14/16 11/14/16 11/14/16 11:43 16:57 19:45 WBC RBC Hgb Hct MCV RDW Plt Count Lymph % (Auto) [place] % (Auto) [place] # Seg Neutrophils % Seg Neuts % (Manual) Lymphocytes % (Manual) Monocytes % (Manual) Basophils % (Manual) Nucleated RBC % Seg Neutrophils # Seg Neutrophils # Man Lymphocytes # (Manual) Monocytes # (Manual) Eosinophils # (Manual) Basophils # (Manual) PT INR APTT Heparin Anti-Xa Level 0.71 H POC ABG pH POC ABG pCO2 POC ABG pO2 Sodium Potassium Chloride Carbon Dioxide BUN Creatinine Glucose POC Glucose 130 H 209 H Calcium Phosphorus Magnesium AST Alkaline Phosphatase C-Reactive Protein Total Protein Albumin Lipase Vitamin B12 TSH Urine WBC (Auto) Urine Chloride Urine Total Protein Vancomycin Trough Crossmatch 11/14/16 11/15/16 11/16/16 23:43 23:47 06:11 WBC RBC Hgb Hct MCV RDW Plt Count Lymph % (Auto) [place] % (Auto) [place] # Seg Neutrophils % Seg Neuts % (Manual) Lymphocytes % (Manual) Monocytes % (Manual) Basophils % (Manual) Nucleated RBC % Seg Neutrophils # Seg Neutrophils # Man Lymphocytes # (Manual) Monocytes # (Manual) Eosinophils # (Manual) Basophils # (Manual) PT INR APTT Heparin Anti-Xa Level POC ABG pH POC ABG pCO2 POC ABG pO2 Sodium Potassium Chloride Carbon Dioxide BUN Creatinine Glucose POC Glucose 167 H 114 H 125 H Calcium Phosphorus Magnesium AST Alkaline Phosphatase C-Reactive Protein Total Protein Albumin Lipase Vitamin B12 TSH Urine WBC (Auto) Urine Chloride Urine Total Protein Vancomycin Trough Crossmatch 11/16/16 11/16/16 11/16/16 09:05 09:05 09:05 WBC RBC 2.53 L Hgb 8.0 L Hct 23.7 L MCV RDW 15.9 H Plt Count Lymph % (Auto) [place] % (Auto) [place] # Seg Neutrophils % Seg Neuts % (Manual) Lymphocytes % (Manual) Monocytes % (Manual) Basophils % (Manual) Nucleated RBC % Seg Neutrophils # Seg Neutrophils # Man Lymphocytes # (Manual) Monocytes # (Manual) Eosinophils # (Manual) Basophils # (Manual) PT INR APTT Heparin Anti-Xa Level POC ABG pH POC ABG pCO2 POC ABG pO2 Sodium Potassium 2.5 L* D Chloride Carbon Dioxide 19 L BUN 5 L Creatinine Glucose 103 H POC Glucose Calcium 6.6 L Phosphorus Magnesium 1.3 L AST Alkaline Phosphatase C-Reactive Protein Total Protein Albumin Lipase Vitamin B12 TSH Urine WBC (Auto) Urine Chloride Urine Total Protein Vancomycin Trough Crossmatch 11/16/16 11/16/16 11/16/16 12:15 13:00 14:45 WBC RBC Hgb Hct MCV RDW Plt Count Lymph % (Auto) [place] % (Auto) [place] # Seg Neutrophils % Seg Neuts % (Manual) Lymphocytes % (Manual) Monocytes % (Manual) Basophils % (Manual) Nucleated RBC % Seg Neutrophils # Seg Neutrophils # Man Lymphocytes # (Manual) Monocytes # (Manual) Eosinophils # (Manual) Basophils # (Manual) PT 19.1 H INR 1.61 H APTT Heparin Anti-Xa Level POC ABG pH 7.479 H POC ABG pCO2 23.6 L POC ABG pO2 Sodium Potassium Chloride Carbon Dioxide BUN Creatinine Glucose POC Glucose 129 H Calcium Phosphorus Magnesium AST Alkaline Phosphatase C-Reactive Protein Total Protein Albumin Lipase Vitamin B12 TSH Urine WBC (Auto) Urine Chloride Urine Total Protein Vancomycin Trough Crossmatch 11/16/16 11/17/16 11/17/16 17:43 00:30 04:32 WBC RBC Hgb Hct MCV RDW Plt Count Lymph % (Auto) [place] % (Auto) [place] # Seg Neutrophils % Seg Neuts % (Manual) Lymphocytes % (Manual) Monocytes % (Manual) Basophils % (Manual) Nucleated RBC % Seg Neutrophils # Seg Neutrophils # Man Lymphocytes # (Manual) Monocytes # (Manual) Eosinophils # (Manual) Basophils # (Manual) PT INR APTT Heparin Anti-Xa Level POC ABG pH POC ABG pCO2 POC ABG pO2 Sodium Potassium Chloride Carbon Dioxide 18 L BUN Creatinine Glucose 127 H POC Glucose 224 H 259 H Calcium 7.5 L Phosphorus Magnesium AST Alkaline Phosphatase C-Reactive Protein Total Protein Albumin Lipase Vitamin B12 TSH Urine WBC (Auto) Urine Chloride Urine Total Protein Vancomycin Trough Crossmatch 11/17/16 11/17/16 11/17/16 05:42 08:34 12:19 WBC RBC 2.85 L Hgb 8.9 L Hct 26.5 L MCV RDW 16.2 H Plt Count Lymph % (Auto) [place] % (Auto) [place] # Seg Neutrophils % Seg Neuts % (Manual) Lymphocytes % (Manual) Monocytes % (Manual) Basophils % (Manual) Nucleated RBC % Seg Neutrophils # Seg Neutrophils # Man Lymphocytes # (Manual) Monocytes # (Manual) Eosinophils # (Manual) Basophils # (Manual) PT INR APTT Heparin Anti-Xa Level POC ABG pH POC ABG pCO2 POC ABG pO2 Sodium Potassium Chloride Carbon Dioxide BUN Creatinine Glucose POC Glucose 118 H 264 H Calcium Phosphorus Magnesium AST Alkaline Phosphatase C-Reactive Protein Total Protein Albumin Lipase Vitamin B12 TSH Urine WBC (Auto) Urine Chloride Urine Total Protein Vancomycin Trough Crossmatch 11/17/16 11/17/16 11/18/16 16:52 23:44 04:53 WBC RBC Hgb Hct MCV RDW Plt Count Lymph % (Auto) [place] % (Auto) [place] # Seg Neutrophils % Seg Neuts % (Manual) Lymphocytes % (Manual) Monocytes % (Manual) Basophils % (Manual) Nucleated RBC % Seg Neutrophils # Seg Neutrophils # Man Lymphocytes # (Manual) Monocytes # (Manual) Eosinophils # (Manual) Basophils # (Manual) PT INR APTT Heparin Anti-Xa Level POC ABG pH POC ABG pCO2 POC ABG pO2 Sodium Potassium Chloride Carbon Dioxide BUN Creatinine Glucose POC Glucose 256 H 109 H 287 H Calcium Phosphorus Magnesium AST Alkaline Phosphatase C-Reactive Protein Total Protein Albumin Lipase Vitamin B12 TSH Urine WBC (Auto) Urine Chloride Urine Total Protein Vancomycin Trough Crossmatch 11/18/16 11/18/16 11/18/16 05:31 05:45 05:45 WBC RBC Hgb Hct MCV RDW Plt Count Lymph % (Auto) [place] % (Auto) [place] # Seg Neutrophils % Seg Neuts % (Manual) Lymphocytes % (Manual) Monocytes % (Manual) Basophils % (Manual) Nucleated RBC % Seg Neutrophils # Seg Neutrophils # Man Lymphocytes # (Manual) Monocytes # (Manual) Eosinophils # (Manual) Basophils # (Manual) PT 20.1 H INR 1.72 H APTT 131.1 H* Heparin Anti-Xa Level 0.18 L POC ABG pH 7.252 L POC ABG pCO2 32.0 L POC ABG pO2 Sodium Potassium Chloride 107.1 H Carbon Dioxide 17 L BUN Creatinine Glucose 284 H POC Glucose Calcium 7.2 L Phosphorus Magnesium AST Alkaline Phosphatase C-Reactive Protein Total Protein 5.5 L Albumin 2.1 L Lipase Vitamin B12 TSH Urine WBC (Auto) Urine Chloride Urine Total Protein Vancomycin Trough Crossmatch 11/18/16 11/18/16 11/18/16 05:45 09:17 12:06 WBC 13.3 H RBC 3.07 L Hgb 9.2 L Hct 29.5 L MCV RDW 16.9 H Plt Count Lymph % (Auto) 11.0 L [place] % (Auto) [place] # Seg Neutrophils % 82.9 H Seg Neuts % (Manual) Lymphocytes % (Manual) Monocytes % (Manual) Basophils % (Manual) Nucleated RBC % Seg Neutrophils # 11.0 H Seg Neutrophils # Man Lymphocytes # (Manual) Monocytes # (Manual) Eosinophils # (Manual) Basophils # (Manual) PT INR APTT Heparin Anti-Xa Level POC ABG pH POC ABG pCO2 24.3 L POC ABG pO2 79 L Sodium Potassium Chloride Carbon Dioxide BUN Creatinine Glucose POC Glucose 433 H Calcium Phosphorus Magnesium AST Alkaline Phosphatase C-Reactive Protein Total Protein Albumin Lipase Vitamin B12 TSH Urine WBC (Auto) Urine Chloride Urine Total Protein Vancomycin Trough Crossmatch 11/18/16 11/18/16 11/18/16 12:09 13:00 17:22 WBC 12.6 H RBC 2.79 L Hgb 8.6 L Hct 26.6 L MCV RDW 17.0 H Plt Count Lymph % (Auto) [place] % (Auto) [place] # Seg Neutrophils % Seg Neuts % (Manual) 90.0 H Lymphocytes % (Manual) 8.0 L Monocytes % (Manual) Basophils % (Manual) Nucleated RBC % Seg Neutrophils # Seg Neutrophils # Man 11.3 H Lymphocytes # (Manual) 1.0 L Monocytes # (Manual) Eosinophils # (Manual) Basophils # (Manual) PT INR APTT Heparin Anti-Xa Level POC ABG pH POC ABG pCO2 POC ABG pO2 Sodium Potassium Chloride Carbon Dioxide BUN Creatinine Glucose POC Glucose 429 H 297 H Calcium Phosphorus Magnesium AST Alkaline Phosphatase C-Reactive Protein Total Protein Albumin Lipase Vitamin B12 TSH Urine WBC (Auto) Urine Chloride Urine Total Protein Vancomycin Trough Crossmatch 11/18/16 11/19/16 11/19/16 23:27 04:30 04:30 WBC RBC 2.92 L Hgb 8.8 L Hct 27.0 L MCV RDW 16.6 H Plt Count Lymph % (Auto) [place] % (Auto) [place] # Seg Neutrophils % Seg Neuts % (Manual) Lymphocytes % (Manual) Monocytes % (Manual) Basophils % (Manual) Nucleated RBC % Seg Neutrophils # Seg Neutrophils # Man Lymphocytes # (Manual) Monocytes # (Manual) Eosinophils # (Manual) Basophils # (Manual) PT INR APTT Heparin Anti-Xa Level POC ABG pH POC ABG pCO2 POC ABG pO2 Sodium Potassium 3.0 L Chloride 107.9 H Carbon Dioxide 20 L BUN Creatinine Glucose 231 H POC Glucose 268 H Calcium 7.1 L Phosphorus Magnesium AST Alkaline Phosphatase C-Reactive Protein Total Protein 5.5 L Albumin 2.1 L Lipase Vitamin B12 TSH Urine WBC (Auto) Urine Chloride Urine Total Protein Vancomycin Trough Crossmatch 11/19/16 11/19/16 11/19/16 04:40 06:40 10:00 WBC RBC Hgb Hct MCV RDW Plt Count Lymph % (Auto) [place] % (Auto) [place] # Seg Neutrophils % Seg Neuts % (Manual) Lymphocytes % (Manual) Monocytes % (Manual) Basophils % (Manual) Nucleated RBC % Seg Neutrophils # Seg Neutrophils # Man Lymphocytes # (Manual) Monocytes # (Manual) Eosinophils # (Manual) Basophils # (Manual) PT INR APTT Heparin Anti-Xa Level POC ABG pH POC ABG pCO2 POC ABG pO2 Sodium Potassium Chloride Carbon Dioxide BUN Creatinine Glucose POC Glucose 267 H 244 H Calcium Phosphorus Magnesium 1.4 L AST Alkaline Phosphatase C-Reactive Protein Total Protein Albumin Lipase Vitamin B12 TSH Urine WBC (Auto) Urine Chloride Urine Total Protein Vancomycin Trough Crossmatch 11/19/16 11/19/16 11/19/16 12:08 18:10 23:40 WBC RBC Hgb Hct MCV RDW Plt Count Lymph % (Auto) [place] % (Auto) [place] # Seg Neutrophils % Seg Neuts % (Manual) Lymphocytes % (Manual) Monocytes % (Manual) Basophils % (Manual) Nucleated RBC % Seg Neutrophils # Seg Neutrophils # Man Lymphocytes # (Manual) Monocytes # (Manual) Eosinophils # (Manual) Basophils # (Manual) PT INR APTT Heparin Anti-Xa Level POC ABG pH POC ABG pCO2 POC ABG pO2 Sodium Potassium Chloride Carbon Dioxide BUN Creatinine Glucose POC Glucose 254 H 265 H 197 H Calcium Phosphorus Magnesium AST Alkaline Phosphatase C-Reactive Protein Total Protein Albumin Lipase Vitamin B12 TSH Urine WBC (Auto) Urine Chloride Urine Total Protein Vancomycin Trough Crossmatch 11/20/16 11/20/16 11/20/16 05:00 05:44 11:33 WBC RBC Hgb Hct MCV RDW Plt Count Lymph % (Auto) [place] % (Auto) [place] # Seg Neutrophils % Seg Neuts % (Manual) Lymphocytes % (Manual) Monocytes % (Manual) Basophils % (Manual) Nucleated RBC % Seg Neutrophils # Seg Neutrophils # Man Lymphocytes # (Manual) Monocytes # (Manual) Eosinophils # (Manual) Basophils # (Manual) PT INR APTT Heparin Anti-Xa Level POC ABG pH POC ABG pCO2 POC ABG pO2 Sodium Potassium 3.4 L Chloride 107.4 H Carbon Dioxide 20 L BUN Creatinine Glucose 140 H POC Glucose 163 H 108 H Calcium 7.2 L Phosphorus Magnesium AST Alkaline Phosphatase C-Reactive Protein Total Protein Albumin Lipase Vitamin B12 TSH Urine WBC (Auto) Urine Chloride Urine Total Protein Vancomycin Trough Crossmatch 11/20/16 11/20/16 11/20/16 13:03 16:45 23:26 WBC RBC Hgb Hct MCV RDW Plt Count Lymph % (Auto) [place] % (Auto) [place] # Seg Neutrophils % Seg Neuts % (Manual) Lymphocytes % (Manual) Monocytes % (Manual) Basophils % (Manual) Nucleated RBC % Seg Neutrophils # Seg Neutrophils # Man Lymphocytes # (Manual) Monocytes # (Manual) Eosinophils # (Manual) Basophils # (Manual) PT INR APTT Heparin Anti-Xa Level POC ABG pH POC ABG pCO2 POC ABG pO2 Sodium Potassium Chloride Carbon Dioxide BUN Creatinine Glucose POC Glucose 113 H 168 H Calcium Phosphorus Magnesium AST Alkaline Phosphatase C-Reactive Protein Total Protein Albumin Lipase Vitamin B12 TSH Urine WBC (Auto) Urine Chloride Urine Total Protein Vancomycin Trough 45.8 H Crossmatch 11/21/16 11/21/16 11/21/16 05:00 05:27 09:50 WBC RBC Hgb Hct MCV RDW Plt Count Lymph % (Auto) [place] % (Auto) [place] # Seg Neutrophils % Seg Neuts % (Manual) Lymphocytes % (Manual) Monocytes % (Manual) Basophils % (Manual) Nucleated RBC % Seg Neutrophils # Seg Neutrophils # Man Lymphocytes # (Manual) Monocytes # (Manual) Eosinophils # (Manual) Basophils # (Manual) PT INR APTT Heparin Anti-Xa Level POC ABG pH POC ABG pCO2 POC ABG pO2 Sodium 133 L D Potassium Chloride Carbon Dioxide 19 L BUN Creatinine Glucose 280 H POC Glucose 222 H Calcium 7.4 L Phosphorus Magnesium AST Alkaline Phosphatase C-Reactive Protein Total Protein Albumin Lipase Vitamin B12 TSH Urine WBC (Auto) Urine Chloride Urine Total Protein Vancomycin Trough 30.4 H Crossmatch 11/21/16 11/21/16 11/21/16 12:36 17:17 18:34 WBC RBC Hgb Hct MCV RDW Plt Count Lymph % (Auto) [place] % (Auto) [place] # Seg Neutrophils % Seg Neuts % (Manual) Lymphocytes % (Manual) Monocytes % (Manual) Basophils % (Manual) Nucleated RBC % Seg Neutrophils # Seg Neutrophils # Man Lymphocytes # (Manual) Monocytes # (Manual) Eosinophils # (Manual) Basophils # (Manual) PT INR APTT Heparin Anti-Xa Level POC ABG pH POC ABG pCO2 POC ABG pO2 Sodium Potassium Chloride Carbon Dioxide BUN Creatinine Glucose POC Glucose 306 H 339 H 318 H Calcium Phosphorus Magnesium AST Alkaline Phosphatase C-Reactive Protein Total Protein Albumin Lipase Vitamin B12 TSH Urine WBC (Auto) Urine Chloride Urine Total Protein Vancomycin Trough Crossmatch 11/21/16 11/22/16 23:16 07:19 WBC RBC Hgb Hct MCV RDW Plt Count Lymph % (Auto) [place] % (Auto) [place] # Seg Neutrophils % Seg Neuts % (Manual) Lymphocytes % (Manual) Monocytes % (Manual) Basophils % (Manual) Nucleated RBC % Seg Neutrophils # Seg Neutrophils # Man Lymphocytes # (Manual) Monocytes # (Manual) Eosinophils # (Manual) Basophils # (Manual) PT INR APTT Heparin Anti-Xa Level POC ABG pH POC ABG pCO2 POC ABG pO2 Sodium Potassium Chloride Carbon Dioxide BUN Creatinine Glucose POC Glucose 286 H 371 H Calcium Phosphorus Magnesium AST Alkaline Phosphatase C-Reactive Protein Total Protein Albumin Lipase Vitamin B12 TSH Urine WBC (Auto) Urine Chloride Urine Total Protein Vancomycin Trough Crossmatch Allied health notes reviewed: RT
--- NOTE | 2016-11-22 11:12 | Progress Note ---
Assessment and Plan 66 YO F admitted 10/13 w/ Resp failure requiring intubation, DKA, Sepsis d/t UTI and SFA thrombosis who I had been initially asked to consult for AMS.Pt had intact symmetric neurologic exam aside from impaired level of arousal and concentration, consistent with toxic metabolic infectious derangement as the etiology for neurologic decompensation. She followed midline and peripheral commands w/ some nodding appropriately and @ least 3/5 power throughout. There was no new focality on neurologic examination to suggest acute [employer] process e.g. Stroke, Seizure or Meningitis. CTH/NH4 neg. Initial EEG mild-mod nonspecific diffuse cerebral dysfunction ? maximal in LT region vs. artifact. MRI Brain that I ordered was cancelled and therefore not performed. I have been asked to reveal on 11/19 for b/l lower facial twitching movements post cardiac arrest on 11/18. 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 After 72 hours off sedation, current exam eyes open, roving eye movements, not following commands, intact brainstem reflexes, UE extension to pain ? posturing vs. withdrawal UE to pain and triple flexion LE. MRI Brain nonacute. EEG w/o reactivity and findings assoc w/ anoxic encephalopathy but no Sz. Formal neuro prognosis is not clearly poor but suspected to be poor (need for continuous nursing care for the duration of life) as UE movements are not clearly purposeful and lack of EEG reactivity. Recommendations: 1. Cont Infectious work up/medical management for UTI, PNA, cellulitis, bacteremia, etc. 2. Avoid hyponatremia, hypo/hyper-calcemia, hypo/hyperglycemia, acidosis, hypoxia/hypoxemia, hypercarbia/hypercapnia 3. Avoid institution of any psychoactive medications (e.g. antihistamines, anticholinergics, BZD, hypnotics, opiates) as able unless low doses of low potency antipsychotic needed for behavioral issues complicating medical care 4. Family reportedly to pursue SNF as she is already Trach/PEG 5. We can revisit as needed. Subjective Date of service: 11/22/16 Principal diagnosis: respiratory failure on mechanical ventilatory support, DKA Interval history: no change clinically. off sedative > 72 hrs. Objective - Vital Sign Vital Signs - 12hr 11/21/16 11/21/16 11/21/16 23:26 23:27 23:30 Temperature Pulse Rate 99 H 96 H Pulse Rate [ From Monitor] Respiratory 35 H 34 H Rate Blood Pressure 129/64 124/66 O2 Sat by Pulse 100 Oximetry O2 Sat by Pulse Oximetry [ Assessment] 11/21/16 11/21/16 11/22/16 23:38 23:48 00:00 Temperature 102 F H 102 F H Pulse Rate 94 H Pulse Rate [ 94 H From Monitor] Respiratory 31 H Rate Blood Pressure 120/70 O2 Sat by Pulse 100 Oximetry O2 Sat by Pulse Oximetry [ Assessment] 11/22/16 11/22/16 11/22/16 00:30 00:42 01:00 Temperature Pulse Rate 85 Pulse Rate [ From Monitor] Respiratory Rate Blood Pressure 112/52 112/52 110/56 O2 Sat by Pulse 100 100 100 Oximetry O2 Sat by Pulse 100 Oximetry [ Assessment] 11/22/16 11/22/16 11/22/16 01:30 02:00 02:30 Temperature Pulse Rate 83 87 85 Pulse Rate [ From Monitor] Respiratory 22 31 H 21 Rate Blood Pressure 104/52 112/61 117/59 O2 Sat by Pulse 100 100 100 Oximetry O2 Sat by Pulse Oximetry [ Assessment] 11/22/16 11/22/16 11/22/16 03:00 03:30 04:00 Temperature Pulse Rate 86 87 90 Pulse Rate [ 87 From Monitor] Respiratory 30 H 18 30 H Rate Blood Pressure 119/65 119/61 127/67 O2 Sat by Pulse 100 100 100 Oximetry O2 Sat by Pulse Oximetry [ Assessment] 11/22/16 11/22/16 11/22/16 04:30 05:00 05:30 Temperature Pulse Rate 89 89 99 H Pulse Rate [ From Monitor] Respiratory 29 H 17 33 H Rate Blood Pressure 121/59 128/62 139/88 O2 Sat by Pulse 100 100 100 Oximetry O2 Sat by Pulse Oximetry [ Assessment] 11/22/16 11/22/16 11/22/16 06:00 06:30 06:41 Temperature Pulse Rate 102 H 94 H 96 H Pulse Rate [ From Monitor] Respiratory 35 H 16 Rate Blood Pressure 139/88 131/89 131/89 O2 Sat by Pulse 98 100 Oximetry O2 Sat by Pulse Oximetry [ Assessment] 11/22/16 11/22/16 11/22/16 06:42 07:00 07:30 Temperature Pulse Rate 95 H 83 Pulse Rate [ From Monitor] Respiratory 36 H 19 21 Rate Blood Pressure 131/59 131/59 O2 Sat by Pulse 96 100 Oximetry O2 Sat by Pulse Oximetry [ Assessment] 11/22/16 11/22/16 11/22/16 07:36 08:00 08:10 Temperature 100.7 F H Pulse Rate 81 Pulse Rate [ 79 From Monitor] Respiratory 29 H 26 H Rate Blood Pressure 100/51 O2 Sat by Pulse 100 100 Oximetry O2 Sat by Pulse Oximetry [ Assessment] 11/22/16 11/22/16 11/22/16 08:24 08:30 09:00 Temperature Pulse Rate 79 80 79 Pulse Rate [ From Monitor] Respiratory 25 H 23 Rate Blood Pressure 100/51 97/50 100/52 O2 Sat by Pulse 100 100 Oximetry O2 Sat by Pulse Oximetry [ Assessment] - General Apperance Constitutional: acutely ill, chronically ill, older than stated age - EENT EENT: ATNC, PERRL, mucous membranes dry - Respiratory Respiratory: chest non-tender, no respiratory distress, decreased breath sounds - Cardiovascular Cardiovascular: regular rate Extremities: no clubbing, cyanosis, no inflammation - Gastrointestinal Gastrointestinal: hypoactive bowel sounds, soft, non-distended - Integumentary Integumentary: normal - Neurologic Cranial nerve examination: PERRL, EOMI, face symmetric, Intact Vestibulo-ocular r, intact corneal reflex Speech examination: other (no speech outpt/not followign commands) Detailed motor examination: other (extension to proximal pain ? posturing vs. purposeful. LE triple flexion) Detailed sensory examination: other (triple flexion LE to pain) Reflex and gait examination: Babinski's sign (triple flexion on L) Reflexes: 1+: bicep, tricep - Musculoskeletal Musculoskeletal: no pain, other (R AKA) - Psychiatric Psychiatric: mood/affect appropriate - Laboratory Findings CBC and BMP: 11/19/16 04:30 11/21/16 05:00 Abnormal Lab Findings: Abnormal Labs 10/13/16 10/13/16 10/13/16 06:38 06:38 07:23 WBC RBC Hgb Hct MCV RDW Plt Count Lymph % (Auto) [place] % (Auto) [place] # Seg Neutrophils % Seg Neuts % (Manual) Lymphocytes % (Manual) Monocytes % (Manual) Basophils % (Manual) Nucleated RBC % Seg Neutrophils # Seg Neutrophils # Man Lymphocytes # (Manual) Monocytes # (Manual) Eosinophils # (Manual) Basophils # (Manual) PT INR APTT Heparin Anti-Xa Level POC ABG pH POC ABG pCO2 POC ABG pO2 Sodium Potassium 6.2 H* Chloride Carbon Dioxide 8 L* BUN 85 H Creatinine 2.8 H Glucose 602 H* POC Glucose 495 H Calcium 7.9 L Phosphorus 6.9 H D Magnesium 3.0 H AST Alkaline Phosphatase C-Reactive Protein Total Protein Albumin Lipase Vitamin B12 TSH Urine WBC (Auto) Urine Chloride Urine Total Protein Vancomycin Trough Crossmatch 10/13/16 10/13/16 10/13/16 08:49 08:55 10:12 WBC RBC Hgb Hct MCV RDW Plt Count Lymph % (Auto) [place] % (Auto) [place] # Seg Neutrophils % Seg Neuts % (Manual) Lymphocytes % (Manual) Monocytes % (Manual) Basophils % (Manual) Nucleated RBC % Seg Neutrophils # Seg Neutrophils # Man Lymphocytes # (Manual) Monocytes # (Manual) Eosinophils # (Manual) Basophils # (Manual) PT INR APTT Heparin Anti-Xa Level POC ABG pH POC ABG pCO2 POC ABG pO2 Sodium Potassium 5.6 H Chloride Carbon Dioxide 11 L BUN 77 H Creatinine 2.7 H Glucose 457 H POC Glucose > 500 H 424 H Calcium 8.0 L Phosphorus Magnesium AST Alkaline Phosphatase C-Reactive Protein Total Protein Albumin Lipase Vitamin B12 TSH Urine WBC (Auto) Urine Chloride Urine Total Protein Vancomycin Trough Crossmatch 10/13/16 10/13/16 10/13/16 10:44 11:22 12:20 WBC RBC Hgb Hct MCV RDW Plt Count Lymph % (Auto) [place] % (Auto) [place] # Seg Neutrophils % Seg Neuts % (Manual) Lymphocytes % (Manual) Monocytes % (Manual) Basophils % (Manual) Nucleated RBC % Seg Neutrophils # Seg Neutrophils # Man Lymphocytes # (Manual) Monocytes # (Manual) Eosinophils # (Manual) Basophils # (Manual) PT INR APTT Heparin Anti-Xa Level POC ABG pH POC ABG pCO2 POC ABG pO2 Sodium Potassium 5.4 H Chloride Carbon Dioxide 14 L BUN 72 H Creatinine 2.6 H Glucose 383 H POC Glucose 391 H 313 H Calcium 8.2 L Phosphorus Magnesium AST Alkaline Phosphatase C-Reactive Protein Total Protein Albumin Lipase Vitamin B12 TSH Urine WBC (Auto) Urine Chloride Urine Total Protein Vancomycin Trough Crossmatch 10/13/16 10/13/16 10/13/16 13:32 14:44 15:57 WBC RBC Hgb Hct MCV RDW Plt Count Lymph % (Auto) [place] % (Auto) [place] # Seg Neutrophils % Seg Neuts % (Manual) Lymphocytes % (Manual) Monocytes % (Manual) Basophils % (Manual) Nucleated RBC % Seg Neutrophils # Seg Neutrophils # Man Lymphocytes # (Manual) Monocytes # (Manual) Eosinophils # (Manual) Basophils # (Manual) PT INR APTT Heparin Anti-Xa Level POC ABG pH POC ABG pCO2 POC ABG pO2 Sodium Potassium Chloride Carbon Dioxide BUN Creatinine Glucose POC Glucose 296 H 210 H 190 H Calcium Phosphorus Magnesium AST Alkaline Phosphatase C-Reactive Protein Total Protein Albumin Lipase Vitamin B12 TSH Urine WBC (Auto) Urine Chloride Urine Total Protein Vancomycin Trough Crossmatch 10/13/16 10/13/16 10/13/16 16:14 16:14 17:17 WBC RBC Hgb Hct MCV RDW Plt Count Lymph % (Auto) [place] % (Auto) [place] # Seg Neutrophils % Seg Neuts % (Manual) Lymphocytes % (Manual) Monocytes % (Manual) Basophils % (Manual) Nucleated RBC % Seg Neutrophils # Seg Neutrophils # Man Lymphocytes # (Manual) Monocytes # (Manual) Eosinophils # (Manual) Basophils # (Manual) PT INR APTT Heparin Anti-Xa Level POC ABG pH POC ABG pCO2 POC ABG pO2 Sodium Potassium Chloride Carbon Dioxide 17 L BUN 58 H Creatinine 1.8 H Glucose 172 H POC Glucose 193 H Calcium 7.7 L Phosphorus Magnesium AST Alkaline Phosphatase C-Reactive Protein 10.50 H Total Protein Albumin Lipase Vitamin B12 TSH Urine WBC (Auto) Urine Chloride Urine Total Protein Vancomycin Trough Crossmatch 10/13/16 10/13/16 10/13/16 17:55 18:32 19:41 WBC RBC Hgb Hct MCV RDW Plt Count Lymph % (Auto) [place] % (Auto) [place] # Seg Neutrophils % Seg Neuts % (Manual) Lymphocytes % (Manual) Monocytes % (Manual) Basophils % (Manual) Nucleated RBC % Seg Neutrophils # Seg Neutrophils # Man Lymphocytes # (Manual) Monocytes # (Manual) Eosinophils # (Manual) Basophils # (Manual) PT INR APTT Heparin Anti-Xa Level POC ABG pH POC ABG pCO2 30.6 L POC ABG pO2 218 H Sodium Potassium Chloride Carbon Dioxide BUN Creatinine Glucose POC Glucose 192 H 177 H Calcium Phosphorus Magnesium AST Alkaline Phosphatase C-Reactive Protein Total Protein Albumin Lipase Vitamin B12 TSH Urine WBC (Auto) Urine Chloride Urine Total Protein Vancomycin Trough Crossmatch 10/13/16 10/13/16 10/13/16 20:54 22:07 23:13 WBC RBC Hgb Hct MCV RDW Plt Count Lymph % (Auto) [place] % (Auto) [place] # Seg Neutrophils % Seg Neuts % (Manual) Lymphocytes % (Manual) Monocytes % (Manual) Basophils % (Manual) Nucleated RBC % Seg Neutrophils # Seg Neutrophils # Man Lymphocytes # (Manual) Monocytes # (Manual) Eosinophils # (Manual) Basophils # (Manual) PT INR APTT Heparin Anti-Xa Level POC ABG pH POC ABG pCO2 POC ABG pO2 Sodium Potassium Chloride Carbon Dioxide BUN Creatinine Glucose POC Glucose 178 H 160 H 168 H Calcium Phosphorus Magnesium AST Alkaline Phosphatase C-Reactive Protein Total Protein Albumin Lipase Vitamin B12 TSH Urine WBC (Auto) Urine Chloride Urine Total Protein Vancomycin Trough Crossmatch 10/13/16 10/13/16 10/14/16 23:25 Unknown 00:21 WBC RBC Hgb Hct MCV RDW Plt Count Lymph % (Auto) [place] % (Auto) [place] # Seg Neutrophils % Seg Neuts % (Manual) Lymphocytes % (Manual) Monocytes % (Manual) Basophils % (Manual) Nucleated RBC % Seg Neutrophils # Seg Neutrophils # Man Lymphocytes # (Manual) Monocytes # (Manual) Eosinophils # (Manual) Basophils # (Manual) PT INR APTT Heparin Anti-Xa Level POC ABG pH POC ABG pCO2 POC ABG pO2 Sodium 148 H Potassium Chloride 114.6 H Carbon Dioxide 17 L BUN 56 H Creatinine 1.6 H Glucose 151 H POC Glucose 171 H Calcium 7.8 L Phosphorus Magnesium AST Alkaline Phosphatase C-Reactive Protein Total Protein Albumin Lipase Vitamin B12 TSH Urine WBC (Auto) Urine Chloride 10.0 L Urine Total Protein < 4 L Vancomycin Trough Crossmatch 10/14/16 10/14/16 10/14/16 01:22 02:29 03:30 WBC RBC Hgb Hct MCV RDW Plt Count Lymph % (Auto) [place] % (Auto) [place] # Seg Neutrophils % Seg Neuts % (Manual) Lymphocytes % (Manual) Monocytes % (Manual) Basophils % (Manual) Nucleated RBC % Seg Neutrophils # Seg Neutrophils # Man Lymphocytes # (Manual) Monocytes # (Manual) Eosinophils # (Manual) Basophils # (Manual) PT INR APTT Heparin Anti-Xa Level POC ABG pH POC ABG pCO2 POC ABG pO2 Sodium Potassium Chloride Carbon Dioxide BUN Creatinine Glucose POC Glucose 144 H 136 H 143 H Calcium Phosphorus Magnesium AST Alkaline Phosphatase C-Reactive Protein Total Protein Albumin Lipase Vitamin B12 TSH Urine WBC (Auto) Urine Chloride Urine Total Protein Vancomycin Trough Crossmatch 10/14/16 10/14/16 10/14/16 04:28 05:16 05:44 WBC RBC Hgb Hct MCV RDW Plt Count Lymph % (Auto) [place] % (Auto) [place] # Seg Neutrophils % Seg Neuts % (Manual) Lymphocytes % (Manual) Monocytes % (Manual) Basophils % (Manual) Nucleated RBC % Seg Neutrophils # Seg Neutrophils # Man Lymphocytes # (Manual) Monocytes # (Manual) Eosinophils # (Manual) Basophils # (Manual) PT INR APTT Heparin Anti-Xa Level POC ABG pH POC ABG pCO2 28.2 L POC ABG pO2 125 H Sodium Potassium Chloride Carbon Dioxide BUN Creatinine Glucose POC Glucose 133 H 160 H Calcium Phosphorus Magnesium AST Alkaline Phosphatase C-Reactive Protein Total Protein Albumin Lipase Vitamin B12 TSH Urine WBC (Auto) Urine Chloride Urine Total Protein Vancomycin Trough Crossmatch 10/14/16 10/14/16 10/14/16 06:12 06:45 07:03 WBC RBC Hgb Hct MCV RDW Plt Count Lymph % (Auto) [place] % (Auto) [place] # Seg Neutrophils % Seg Neuts % (Manual) Lymphocytes % (Manual) Monocytes % (Manual) Basophils % (Manual) Nucleated RBC % Seg Neutrophils # Seg Neutrophils # Man Lymphocytes # (Manual) Monocytes # (Manual) Eosinophils # (Manual) Basophils # (Manual) PT INR APTT Heparin Anti-Xa Level POC ABG pH POC ABG pCO2 POC ABG pO2 Sodium 149 H Potassium Chloride 115.4 H Carbon Dioxide 17 L BUN 45 H Creatinine 1.5 H Glucose 139 H POC Glucose 149 H Calcium 7.4 L Phosphorus 1.0 L D Magnesium AST Alkaline Phosphatase C-Reactive Protein Total Protein Albumin Lipase Vitamin B12 TSH Urine WBC (Auto) Urine Chloride Urine Total Protein Vancomycin Trough Crossmatch 10/14/16 10/14/16 10/14/16 07:03 08:02 09:16 WBC RBC Hgb Hct MCV RDW Plt Count Lymph % (Auto) [place] % (Auto) [place] # Seg Neutrophils % Seg Neuts % (Manual) Lymphocytes % (Manual) Monocytes % (Manual) Basophils % (Manual) Nucleated RBC % Seg Neutrophils # Seg Neutrophils # Man Lymphocytes # (Manual) Monocytes # (Manual) Eosinophils # (Manual) Basophils # (Manual) PT INR APTT Heparin Anti-Xa Level POC ABG pH POC ABG pCO2 POC ABG pO2 Sodium Potassium Chloride Carbon Dioxide BUN Creatinine Glucose POC Glucose 156 H 158 H Calcium Phosphorus Magnesium AST Alkaline Phosphatase C-Reactive Protein Total Protein Albumin Lipase 738 H Vitamin B12 TSH Urine WBC (Auto) Urine Chloride Urine Total Protein Vancomycin Trough Crossmatch 10/14/16 10/14/16 10/14/16 10:26 11:03 11:57 WBC RBC Hgb Hct MCV RDW Plt Count Lymph % (Auto) [place] % (Auto) [place] # Seg Neutrophils % Seg Neuts % (Manual) Lymphocytes % (Manual) Monocytes % (Manual) Basophils % (Manual) Nucleated RBC % Seg Neutrophils # Seg Neutrophils # Man Lymphocytes # (Manual) Monocytes # (Manual) Eosinophils # (Manual) Basophils # (Manual) PT INR APTT Heparin Anti-Xa Level POC ABG pH 7.198 L POC ABG pCO2 47.5 H POC ABG pO2 Sodium Potassium Chloride Carbon Dioxide BUN Creatinine Glucose POC Glucose 174 H 189 H Calcium Phosphorus Magnesium AST Alkaline Phosphatase C-Reactive Protein Total Protein Albumin Lipase Vitamin B12 TSH Urine WBC (Auto) Urine Chloride Urine Total Protein Vancomycin Trough Crossmatch 10/14/16 10/14/16 10/14/16 12:02 12:02 13:11 WBC 13.4 H RBC 3.60 L Hgb Hct MCV 98 H D RDW 13.1 L Plt Count Lymph % (Auto) [place] % (Auto) [place] # Seg Neutrophils % Seg Neuts % (Manual) Lymphocytes % (Manual) Monocytes % (Manual) Basophils % (Manual) Nucleated RBC % Seg Neutrophils # Seg Neutrophils # Man Lymphocytes # (Manual) Monocytes # (Manual) Eosinophils # (Manual) Basophils # (Manual) PT INR APTT Heparin Anti-Xa Level POC ABG pH POC ABG pCO2 POC ABG pO2 Sodium Potassium Chloride 110.7 H Carbon Dioxide 19 L BUN 38 H Creatinine 1.4 H Glucose 182 H POC Glucose 173 H Calcium 7.5 L Phosphorus Magnesium AST Alkaline Phosphatase C-Reactive Protein Total Protein Albumin Lipase Vitamin B12 TSH Urine WBC (Auto) Urine Chloride Urine Total Protein Vancomycin Trough Crossmatch 10/14/16 10/14/16 10/14/16 14:24 15:31 16:36 WBC RBC Hgb Hct MCV RDW Plt Count Lymph % (Auto) [place] % (Auto) [place] # Seg Neutrophils % Seg Neuts % (Manual) Lymphocytes % (Manual) Monocytes % (Manual) Basophils % (Manual) Nucleated RBC % Seg Neutrophils # Seg Neutrophils # Man Lymphocytes # (Manual) Monocytes # (Manual) Eosinophils # (Manual) Basophils # (Manual) PT INR APTT Heparin Anti-Xa Level POC ABG pH POC ABG pCO2 POC ABG pO2 Sodium Potassium Chloride Carbon Dioxide BUN Creatinine Glucose POC Glucose 123 H 124 H 156 H Calcium Phosphorus Magnesium AST Alkaline Phosphatase C-Reactive Protein Total Protein Albumin Lipase Vitamin B12 TSH Urine WBC (Auto) Urine Chloride Urine Total Protein Vancomycin Trough Crossmatch 10/14/16 10/14/16 10/14/16 17:43 19:00 20:08 WBC RBC Hgb Hct MCV RDW Plt Count Lymph % (Auto) [place] % (Auto) [place] # Seg Neutrophils % Seg Neuts % (Manual) Lymphocytes % (Manual) Monocytes % (Manual) Basophils % (Manual) Nucleated RBC % Seg Neutrophils # Seg Neutrophils # Man Lymphocytes # (Manual) Monocytes # (Manual) Eosinophils # (Manual) Basophils # (Manual) PT INR APTT Heparin Anti-Xa Level POC ABG pH POC ABG pCO2 POC ABG pO2 Sodium Potassium Chloride Carbon Dioxide BUN Creatinine Glucose POC Glucose 154 H 123 H 138 H Calcium Phosphorus Magnesium AST Alkaline Phosphatase C-Reactive Protein Total Protein Albumin Lipase Vitamin B12 TSH Urine WBC (Auto) Urine Chloride Urine Total Protein Vancomycin Trough Crossmatch 10/14/16 10/14/16 10/14/16 21:17 22:25 23:37 WBC RBC Hgb Hct MCV RDW Plt Count Lymph % (Auto) [place] % (Auto) [place] # Seg Neutrophils % Seg Neuts % (Manual) Lymphocytes % (Manual) Monocytes % (Manual) Basophils % (Manual) Nucleated RBC % Seg Neutrophils # Seg Neutrophils # Man Lymphocytes # (Manual) Monocytes # (Manual) Eosinophils # (Manual) Basophils # (Manual) PT INR APTT Heparin Anti-Xa Level POC ABG pH POC ABG pCO2 POC ABG pO2 Sodium Potassium Chloride Carbon Dioxide BUN Creatinine Glucose POC Glucose 148 H 132 H 137 H Calcium Phosphorus Magnesium AST Alkaline Phosphatase C-Reactive Protein Total Protein Albumin Lipase Vitamin B12 TSH Urine WBC (Auto) Urine Chloride Urine Total Protein Vancomycin Trough Crossmatch 10/15/16 10/15/16 10/15/16 00:49 01:53 03:06 WBC RBC Hgb Hct MCV RDW Plt Count Lymph % (Auto) [place] % (Auto) [place] # Seg Neutrophils % Seg Neuts % (Manual) Lymphocytes % (Manual) Monocytes % (Manual) Basophils % (Manual) Nucleated RBC % Seg Neutrophils # Seg Neutrophils # Man Lymphocytes # (Manual) Monocytes # (Manual) Eosinophils # (Manual) Basophils # (Manual) PT INR APTT Heparin Anti-Xa Level POC ABG pH POC ABG pCO2 POC ABG pO2 Sodium Potassium Chloride Carbon Dioxide BUN Creatinine Glucose POC Glucose 132 H 134 H 134 H Calcium Phosphorus Magnesium AST Alkaline Phosphatase C-Reactive Protein Total Protein Albumin Lipase Vitamin B12 TSH Urine WBC (Auto) Urine Chloride Urine Total Protein Vancomycin Trough Crossmatch 10/15/16 10/15/16 10/15/16 04:40 04:46 06:21 WBC RBC Hgb Hct MCV RDW Plt Count Lymph % (Auto) [place] % (Auto) [place] # Seg Neutrophils % Seg Neuts % (Manual) Lymphocytes % (Manual) Monocytes % (Manual) Basophils % (Manual) Nucleated RBC % Seg Neutrophils # Seg Neutrophils # Man Lymphocytes # (Manual) Monocytes # (Manual) Eosinophils # (Manual) Basophils # (Manual) PT INR APTT Heparin Anti-Xa Level POC ABG pH POC ABG pCO2 30.7 L POC ABG pO2 108 H Sodium Potassium Chloride 109.0 H Carbon Dioxide 17 L BUN 27 H Creatinine Glucose 124 H POC Glucose 160 H Calcium 7.5 L Phosphorus Magnesium AST 79 H Alkaline Phosphatase C-Reactive Protein Total Protein 5.5 L Albumin 3.0 L Lipase Vitamin B12 TSH Urine WBC (Auto) Urine Chloride Urine Total Protein Vancomycin Trough Crossmatch 10/15/16 10/15/16 10/15/16 07:12 08:01 09:03 WBC RBC Hgb Hct MCV RDW Plt Count Lymph % (Auto) [place] % (Auto) [place] # Seg Neutrophils % Seg Neuts % (Manual) Lymphocytes % (Manual) Monocytes % (Manual) Basophils % (Manual) Nucleated RBC % Seg Neutrophils # Seg Neutrophils # Man Lymphocytes # (Manual) Monocytes # (Manual) Eosinophils # (Manual) Basophils # (Manual) PT INR APTT Heparin Anti-Xa Level POC ABG pH POC ABG pCO2 POC ABG pO2 Sodium Potassium Chloride Carbon Dioxide BUN Creatinine Glucose POC Glucose 179 H 187 H 165 H Calcium Phosphorus Magnesium AST Alkaline Phosphatase C-Reactive Protein Total Protein Albumin Lipase Vitamin B12 TSH Urine WBC (Auto) Urine Chloride Urine Total Protein Vancomycin Trough Crossmatch 10/15/16 10/15/16 10/15/16 10:06 10:06 10:07 WBC 12.1 H RBC 3.01 L Hgb 9.7 L Hct 29.6 L MCV 98 H RDW Plt Count 129 L Lymph % (Auto) [place] % (Auto) [place] # Seg Neutrophils % Seg Neuts % (Manual) Lymphocytes % (Manual) Monocytes % (Manual) Basophils % (Manual) Nucleated RBC % Seg Neutrophils # Seg Neutrophils # Man Lymphocytes # (Manual) Monocytes # (Manual) Eosinophils # (Manual) Basophils # (Manual) PT INR APTT Heparin Anti-Xa Level POC ABG pH POC ABG pCO2 POC ABG pO2 Sodium Potassium 3.2 L D Chloride 109.6 H Carbon Dioxide 18 L BUN 22 H Creatinine Glucose 127 H POC Glucose 147 H Calcium 7.0 L Phosphorus Magnesium AST Alkaline Phosphatase C-Reactive Protein Total Protein Albumin Lipase Vitamin B12 TSH Urine WBC (Auto) Urine Chloride Urine Total Protein Vancomycin Trough Crossmatch 10/15/16 10/15/16 10/15/16 11:05 11:06 11:57 WBC RBC Hgb Hct MCV RDW Plt Count Lymph % (Auto) [place] % (Auto) [place] # Seg Neutrophils % Seg Neuts % (Manual) Lymphocytes % (Manual) Monocytes % (Manual) Basophils % (Manual) Nucleated RBC % Seg Neutrophils # Seg Neutrophils # Man Lymphocytes # (Manual) Monocytes # (Manual) Eosinophils # (Manual) Basophils # (Manual) PT INR APTT Heparin Anti-Xa Level POC ABG pH 7.305 L POC ABG pCO2 POC ABG pO2 Sodium Potassium Chloride Carbon Dioxide BUN Creatinine Glucose POC Glucose 145 H Calcium Phosphorus Magnesium AST Alkaline Phosphatase C-Reactive Protein Total Protein Albumin Lipase Vitamin B12 TSH Urine WBC (Auto) 7.0 H Urine Chloride Urine Total Protein Vancomycin Trough Crossmatch 10/15/16 10/15/16 10/15/16 12:04 13:59 15:24 WBC RBC Hgb Hct MCV RDW Plt Count Lymph % (Auto) [place] % (Auto) [place] # Seg Neutrophils % Seg Neuts % (Manual) Lymphocytes % (Manual) Monocytes % (Manual) Basophils % (Manual) Nucleated RBC % Seg Neutrophils # Seg Neutrophils # Man Lymphocytes # (Manual) Monocytes # (Manual) Eosinophils # (Manual) Basophils # (Manual) PT INR APTT Heparin Anti-Xa Level POC ABG pH POC ABG pCO2 POC ABG pO2 Sodium Potassium Chloride Carbon Dioxide BUN Creatinine Glucose POC Glucose 123 H 147 H 153 H Calcium Phosphorus Magnesium AST Alkaline Phosphatase C-Reactive Protein Total Protein Albumin Lipase Vitamin B12 TSH Urine WBC (Auto) Urine Chloride Urine Total Protein Vancomycin Trough Crossmatch 10/15/16 10/15/16 10/15/16 16:30 17:34 18:30 WBC RBC Hgb Hct MCV RDW Plt Count Lymph % (Auto) [place] % (Auto) [place] # Seg Neutrophils % Seg Neuts % (Manual) Lymphocytes % (Manual) Monocytes % (Manual) Basophils % (Manual) Nucleated RBC % Seg Neutrophils # Seg Neutrophils # Man Lymphocytes # (Manual) Monocytes # (Manual) Eosinophils # (Manual) Basophils # (Manual) PT INR APTT Heparin Anti-Xa Level POC ABG pH POC ABG pCO2 POC ABG pO2 Sodium Potassium Chloride Carbon Dioxide BUN Creatinine Glucose POC Glucose 223 H 236 H 164 H Calcium Phosphorus Magnesium AST Alkaline Phosphatase C-Reactive Protein Total Protein Albumin Lipase Vitamin B12 TSH Urine WBC (Auto) Urine Chloride Urine Total Protein Vancomycin Trough Crossmatch 10/15/16 10/15/16 10/15/16 19:14 20:31 21:23 WBC RBC Hgb Hct MCV RDW Plt Count Lymph % (Auto) [place] % (Auto) [place] # Seg Neutrophils % Seg Neuts % (Manual) Lymphocytes % (Manual) Monocytes % (Manual) Basophils % (Manual) Nucleated RBC % Seg Neutrophils # Seg Neutrophils # Man Lymphocytes # (Manual) Monocytes # (Manual) Eosinophils # (Manual) Basophils # (Manual) PT INR APTT Heparin Anti-Xa Level POC ABG pH POC ABG pCO2 POC ABG pO2 Sodium Potassium Chloride Carbon Dioxide BUN Creatinine Glucose POC Glucose 138 H 158 H 158 H Calcium Phosphorus Magnesium AST Alkaline Phosphatase C-Reactive Protein Total Protein Albumin Lipase Vitamin B12 TSH Urine WBC (Auto) Urine Chloride Urine Total Protein Vancomycin Trough Crossmatch 10/15/16 10/15/16 10/16/16 22:04 22:57 00:11 WBC RBC Hgb Hct MCV RDW Plt Count Lymph % (Auto) [place] % (Auto) [place] # Seg Neutrophils % Seg Neuts % (Manual) Lymphocytes % (Manual) Monocytes % (Manual) Basophils % (Manual) Nucleated RBC % Seg Neutrophils # Seg Neutrophils # Man Lymphocytes # (Manual) Monocytes # (Manual) Eosinophils # (Manual) Basophils # (Manual) PT INR APTT Heparin Anti-Xa Level POC ABG pH POC ABG pCO2 POC ABG pO2 Sodium Potassium Chloride Carbon Dioxide BUN Creatinine Glucose POC Glucose 168 H 213 H 166 H Calcium Phosphorus Magnesium AST Alkaline Phosphatase C-Reactive Protein Total Protein Albumin Lipase Vitamin B12 TSH Urine WBC (Auto) Urine Chloride Urine Total Protein Vancomycin Trough Crossmatch 10/16/16 10/16/16 10/16/16 01:16 02:32 03:38 WBC RBC Hgb Hct MCV RDW Plt Count Lymph % (Auto) [place] % (Auto) [place] # Seg Neutrophils % Seg Neuts % (Manual) Lymphocytes % (Manual) Monocytes % (Manual) Basophils % (Manual) Nucleated RBC % Seg Neutrophils # Seg Neutrophils # Man Lymphocytes # (Manual) Monocytes # (Manual) Eosinophils # (Manual) Basophils # (Manual) PT INR APTT Heparin Anti-Xa Level POC ABG pH POC ABG pCO2 POC ABG pO2 Sodium Potassium Chloride Carbon Dioxide BUN Creatinine Glucose POC Glucose 171 H 164 H 147 H Calcium Phosphorus Magnesium AST Alkaline Phosphatase C-Reactive Protein Total Protein Albumin Lipase Vitamin B12 TSH Urine WBC (Auto) Urine Chloride Urine Total Protein Vancomycin Trough Crossmatch 10/16/16 10/16/16 10/16/16 04:14 04:14 04:49 WBC RBC Hgb Hct MCV RDW Plt Count Lymph % (Auto) [place] % (Auto) [place] # Seg Neutrophils % Seg Neuts % (Manual) Lymphocytes % (Manual) Monocytes % (Manual) Basophils % (Manual) Nucleated RBC % Seg Neutrophils # Seg Neutrophils # Man Lymphocytes # (Manual) Monocytes # (Manual) Eosinophils # (Manual) Basophils # (Manual) PT INR APTT Heparin Anti-Xa Level POC ABG pH POC ABG pCO2 POC ABG pO2 Sodium 147 H Potassium Chloride 110.9 H Carbon Dioxide 19 L BUN Creatinine Glucose 139 H POC Glucose 144 H Calcium 7.3 L Phosphorus 2.3 L Magnesium AST Alkaline Phosphatase C-Reactive Protein Total Protein Albumin Lipase 143 H Vitamin B12 TSH Urine WBC (Auto) Urine Chloride Urine Total Protein Vancomycin Trough Crossmatch 10/16/16 10/16/16 10/16/16 05:03 05:41 05:58 WBC 16.5 H RBC 3.36 L Hgb Hct MCV 98 H RDW 13.1 L Plt Count Lymph % (Auto) 8.5 L [place] % (Auto) 7.6 H [place] # 1.3 H Seg Neutrophils % 83.3 H Seg Neuts % (Manual) Lymphocytes % (Manual) Monocytes % (Manual) Basophils % (Manual) Nucleated RBC % Seg Neutrophils # 13.8 H Seg Neutrophils # Man Lymphocytes # (Manual) Monocytes # (Manual) Eosinophils # (Manual) Basophils # (Manual) PT INR APTT Heparin Anti-Xa Level POC ABG pH POC ABG pCO2 30.7 L POC ABG pO2 128 H Sodium Potassium Chloride Carbon Dioxide BUN Creatinine Glucose POC Glucose 131 H Calcium Phosphorus Magnesium AST Alkaline Phosphatase C-Reactive Protein Total Protein Albumin Lipase Vitamin B12 TSH Urine WBC (Auto) Urine Chloride Urine Total Protein Vancomycin Trough Crossmatch 10/16/16 10/16/16 10/16/16 06:32 09:27 09:35 WBC RBC Hgb Hct MCV RDW Plt Count Lymph % (Auto) [place] % (Auto) [place] # Seg Neutrophils % Seg Neuts % (Manual) Lymphocytes % (Manual) Monocytes % (Manual) Basophils % (Manual) Nucleated RBC % Seg Neutrophils # Seg Neutrophils # Man Lymphocytes # (Manual) Monocytes # (Manual) Eosinophils # (Manual) Basophils # (Manual) PT INR APTT Heparin Anti-Xa Level POC ABG pH POC ABG pCO2 32.8 L POC ABG pO2 137 H Sodium Potassium Chloride Carbon Dioxide BUN Creatinine Glucose POC Glucose 121 H 150 H Calcium Phosphorus Magnesium AST Alkaline Phosphatase C-Reactive Protein Total Protein Albumin Lipase Vitamin B12 TSH Urine WBC (Auto) Urine Chloride Urine Total Protein Vancomycin Trough Crossmatch 10/16/16 10/16/16 10/16/16 10:47 13:27 14:24 WBC RBC Hgb Hct MCV RDW Plt Count Lymph % (Auto) [place] % (Auto) [place] # Seg Neutrophils % Seg Neuts % (Manual) Lymphocytes % (Manual) Monocytes % (Manual) Basophils % (Manual) Nucleated RBC % Seg Neutrophils # Seg Neutrophils # Man Lymphocytes # (Manual) Monocytes # (Manual) Eosinophils # (Manual) Basophils # (Manual) PT INR APTT Heparin Anti-Xa Level POC ABG pH POC ABG pCO2 POC ABG pO2 Sodium Potassium Chloride Carbon Dioxide BUN Creatinine Glucose POC Glucose 184 H 171 H 174 H Calcium Phosphorus Magnesium AST Alkaline Phosphatase C-Reactive Protein Total Protein Albumin Lipase Vitamin B12 TSH Urine WBC (Auto) Urine Chloride Urine Total Protein Vancomycin Trough Crossmatch 10/16/16 10/16/16 10/16/16 15:48 16:26 18:17 WBC RBC Hgb Hct MCV RDW Plt Count Lymph % (Auto) [place] % (Auto) [place] # Seg Neutrophils % Seg Neuts % (Manual) Lymphocytes % (Manual) Monocytes % (Manual) Basophils % (Manual) Nucleated RBC % Seg Neutrophils # Seg Neutrophils # Man Lymphocytes # (Manual) Monocytes # (Manual) Eosinophils # (Manual) Basophils # (Manual) PT INR APTT Heparin Anti-Xa Level POC ABG pH POC ABG pCO2 POC ABG pO2 Sodium Potassium Chloride Carbon Dioxide BUN Creatinine Glucose POC Glucose 205 H 204 H 234 H Calcium Phosphorus Magnesium AST Alkaline Phosphatase C-Reactive Protein Total Protein Albumin Lipase Vitamin B12 TSH Urine WBC (Auto) Urine Chloride Urine Total Protein Vancomycin Trough Crossmatch 10/16/16 10/16/16 10/16/16 19:40 20:33 21:36 WBC RBC Hgb Hct MCV RDW Plt Count Lymph % (Auto) [place] % (Auto) [place] # Seg Neutrophils % Seg Neuts % (Manual) Lymphocytes % (Manual) Monocytes % (Manual) Basophils % (Manual) Nucleated RBC % Seg Neutrophils # Seg Neutrophils # Man Lymphocytes # (Manual) Monocytes # (Manual) Eosinophils # (Manual) Basophils # (Manual) PT INR APTT Heparin Anti-Xa Level POC ABG pH POC ABG pCO2 POC ABG pO2 Sodium Potassium Chloride Carbon Dioxide BUN Creatinine Glucose POC Glucose 167 H 153 H 158 H Calcium Phosphorus Magnesium AST Alkaline Phosphatase C-Reactive Protein Total Protein Albumin Lipase Vitamin B12 TSH Urine WBC (Auto) Urine Chloride Urine Total Protein Vancomycin Trough Crossmatch 10/16/16 10/16/16 10/17/16 22:54 23:48 00:47 WBC RBC Hgb Hct MCV RDW Plt Count Lymph % (Auto) [place] % (Auto) [place] # Seg Neutrophils % Seg Neuts % (Manual) Lymphocytes % (Manual) Monocytes % (Manual) Basophils % (Manual) Nucleated RBC % Seg Neutrophils # Seg Neutrophils # Man Lymphocytes # (Manual) Monocytes # (Manual) Eosinophils # (Manual) Basophils # (Manual) PT INR APTT Heparin Anti-Xa Level POC ABG pH POC ABG pCO2 POC ABG pO2 Sodium Potassium Chloride Carbon Dioxide BUN Creatinine Glucose POC Glucose 180 H 207 H 196 H Calcium Phosphorus Magnesium AST Alkaline Phosphatase C-Reactive Protein Total Protein Albumin Lipase Vitamin B12 TSH Urine WBC (Auto) Urine Chloride Urine Total Protein Vancomycin Trough Crossmatch 10/17/16 10/17/16 10/17/16 01:57 02:49 03:50 WBC RBC Hgb Hct MCV RDW Plt Count Lymph % (Auto) [place] % (Auto) [place] # Seg Neutrophils % Seg Neuts % (Manual) Lymphocytes % (Manual) Monocytes % (Manual) Basophils % (Manual) Nucleated RBC % Seg Neutrophils # Seg Neutrophils # Man Lymphocytes # (Manual) Monocytes # (Manual) Eosinophils # (Manual) Basophils # (Manual) PT INR APTT Heparin Anti-Xa Level POC ABG pH POC ABG pCO2 POC ABG pO2 Sodium Potassium Chloride Carbon Dioxide BUN Creatinine Glucose POC Glucose 180 H 151 H 106 H Calcium Phosphorus Magnesium AST Alkaline Phosphatase C-Reactive Protein Total Protein Albumin Lipase Vitamin B12 TSH Urine WBC (Auto) Urine Chloride Urine Total Protein Vancomycin Trough Crossmatch 10/17/16 10/17/16 10/17/16 04:59 06:03 06:35 WBC RBC Hgb Hct MCV RDW Plt Count Lymph % (Auto) [place] % (Auto) [place] # Seg Neutrophils % Seg Neuts % (Manual) Lymphocytes % (Manual) Monocytes % (Manual) Basophils % (Manual) Nucleated RBC % Seg Neutrophils # Seg Neutrophils # Man Lymphocytes # (Manual) Monocytes # (Manual) Eosinophils # (Manual) Basophils # (Manual) PT INR APTT Heparin Anti-Xa Level POC ABG pH 7.453 H POC ABG pCO2 30.1 L POC ABG pO2 111 H Sodium Potassium Chloride Carbon Dioxide BUN Creatinine Glucose POC Glucose 145 H 157 H Calcium Phosphorus Magnesium AST Alkaline Phosphatase C-Reactive Protein Total Protein Albumin Lipase Vitamin B12 TSH Urine WBC (Auto) Urine Chloride Urine Total Protein Vancomycin Trough Crossmatch 10/17/16 10/17/16 10/17/16 07:08 07:11 08:01 WBC RBC Hgb Hct MCV RDW Plt Count Lymph % (Auto) [place] % (Auto) [place] # Seg Neutrophils % Seg Neuts % (Manual) Lymphocytes % (Manual) Monocytes % (Manual) Basophils % (Manual) Nucleated RBC % Seg Neutrophils # Seg Neutrophils # Man Lymphocytes # (Manual) Monocytes # (Manual) Eosinophils # (Manual) Basophils # (Manual) PT INR APTT Heparin Anti-Xa Level POC ABG pH POC ABG pCO2 POC ABG pO2 Sodium 147 H Potassium Chloride 113.8 H Carbon Dioxide 19 L BUN Creatinine Glucose 136 H POC Glucose 136 H 152 H Calcium 7.7 L Phosphorus Magnesium AST Alkaline Phosphatase C-Reactive Protein Total Protein Albumin Lipase Vitamin B12 TSH Urine WBC (Auto) Urine Chloride Urine Total Protein Vancomycin Trough Crossmatch 10/17/16 10/17/16 10/17/16 08:23 09:17 09:53 WBC 18.1 H RBC 3.01 L Hgb 9.7 L Hct 29.4 L MCV 98 H RDW Plt Count 116 L Lymph % (Auto) [place] % (Auto) [place] # Seg Neutrophils % Seg Neuts % (Manual) 77.0 H Lymphocytes % (Manual) 4.0 L Monocytes % (Manual) 12.0 H Basophils % (Manual) Nucleated RBC % Seg Neutrophils # Seg Neutrophils # Man 13.9 H Lymphocytes # (Manual) 0.7 L Monocytes # (Manual) 2.2 H Eosinophils # (Manual) Basophils # (Manual) PT INR APTT Heparin Anti-Xa Level POC ABG pH POC ABG pCO2 POC ABG pO2 Sodium Potassium Chloride Carbon Dioxide BUN Creatinine Glucose POC Glucose 148 H 137 H Calcium Phosphorus Magnesium AST Alkaline Phosphatase C-Reactive Protein Total Protein Albumin Lipase Vitamin B12 TSH Urine WBC (Auto) Urine Chloride Urine Total Protein Vancomycin Trough Crossmatch 10/17/16 10/17/16 10/17/16 11:43 16:07 17:42 WBC RBC Hgb Hct MCV RDW Plt Count Lymph % (Auto) [place] % (Auto) [place] # Seg Neutrophils % Seg Neuts % (Manual) Lymphocytes % (Manual) Monocytes % (Manual) Basophils % (Manual) Nucleated RBC % Seg Neutrophils # Seg Neutrophils # Man Lymphocytes # (Manual) Monocytes # (Manual) Eosinophils # (Manual) Basophils # (Manual) PT 16.4 H INR 1.33 H APTT 38.8 H Heparin Anti-Xa Level POC ABG pH POC ABG pCO2 POC ABG pO2 Sodium Potassium Chloride Carbon Dioxide BUN Creatinine Glucose POC Glucose 179 H 153 H Calcium Phosphorus Magnesium AST Alkaline Phosphatase C-Reactive Protein Total Protein Albumin Lipase Vitamin B12 TSH Urine WBC (Auto) Urine Chloride Urine Total Protein Vancomycin Trough Crossmatch 10/17/16 10/18/16 10/18/16 22:54 04:37 05:39 WBC RBC Hgb Hct MCV RDW Plt Count Lymph % (Auto) [place] % (Auto) [place] # Seg Neutrophils % Seg Neuts % (Manual) Lymphocytes % (Manual) Monocytes % (Manual) Basophils % (Manual) Nucleated RBC % Seg Neutrophils # Seg Neutrophils # Man Lymphocytes # (Manual) Monocytes # (Manual) Eosinophils # (Manual) Basophils # (Manual) PT INR APTT Heparin Anti-Xa Level 0.27 L POC ABG pH 7.454 H POC ABG pCO2 30.8 L POC ABG pO2 115 H Sodium Potassium Chloride Carbon Dioxide BUN Creatinine Glucose POC Glucose 69 L Calcium Phosphorus Magnesium AST Alkaline Phosphatase C-Reactive Protein Total Protein Albumin Lipase Vitamin B12 TSH Urine WBC (Auto) Urine Chloride Urine Total Protein Vancomycin Trough Crossmatch 10/18/16 10/18/16 10/18/16 06:46 06:46 06:46 WBC 20.5 H RBC 2.62 L Hgb 8.4 L Hct 26.0 L MCV 100 H RDW Plt Count Lymph % (Auto) [place] % (Auto) [place] # Seg Neutrophils % Seg Neuts % (Manual) 75.0 H Lymphocytes % (Manual) 9.0 L Monocytes % (Manual) 14.0 H Basophils % (Manual) Nucleated RBC % Seg Neutrophils # Seg Neutrophils # Man 15.4 H Lymphocytes # (Manual) Monocytes # (Manual) 2.9 H Eosinophils # (Manual) Basophils # (Manual) PT INR APTT Heparin Anti-Xa Level POC ABG pH POC ABG pCO2 POC ABG pO2 Sodium Potassium Chloride 110.6 H Carbon Dioxide BUN Creatinine 1.3 H Glucose 153 H POC Glucose Calcium 8.0 L Phosphorus Magnesium 1.6 L AST Alkaline Phosphatase C-Reactive Protein Total Protein Albumin Lipase Vitamin B12 TSH Urine WBC (Auto) Urine Chloride Urine Total Protein Vancomycin Trough Crossmatch 10/18/16 10/18/16 10/18/16 07:30 11:37 17:51 WBC RBC Hgb Hct MCV RDW Plt Count Lymph % (Auto) [place] % (Auto) [place] # Seg Neutrophils % Seg Neuts % (Manual) Lymphocytes % (Manual) Monocytes % (Manual) Basophils % (Manual) Nucleated RBC % Seg Neutrophils # Seg Neutrophils # Man Lymphocytes # (Manual) Monocytes # (Manual) Eosinophils # (Manual) Basophils # (Manual) PT INR APTT Heparin Anti-Xa Level POC ABG pH POC ABG pCO2 POC ABG pO2 Sodium Potassium Chloride Carbon Dioxide BUN Creatinine Glucose POC Glucose 162 H 156 H 164 H Calcium Phosphorus Magnesium AST Alkaline Phosphatase C-Reactive Protein Total Protein Albumin Lipase Vitamin B12 TSH Urine WBC (Auto) Urine Chloride Urine Total Protein Vancomycin Trough Crossmatch 10/18/16 10/19/16 10/19/16 23:44 03:59 05:13 WBC 18.2 H RBC 2.76 L Hgb 9.0 L Hct 27.7 L MCV 100 H RDW Plt Count Lymph % (Auto) [place] % (Auto) [place] # Seg Neutrophils % Seg Neuts % (Manual) 76.0 H Lymphocytes % (Manual) 10.0 L Monocytes % (Manual) Basophils % (Manual) Nucleated RBC % Seg Neutrophils # Seg Neutrophils # Man 13.8 H Lymphocytes # (Manual) Monocytes # (Manual) Eosinophils # (Manual) Basophils # (Manual) PT INR APTT Heparin Anti-Xa Level POC ABG pH POC ABG pCO2 32.2 L POC ABG pO2 128 H Sodium Potassium Chloride Carbon Dioxide BUN Creatinine Glucose POC Glucose 278 H Calcium Phosphorus Magnesium AST Alkaline Phosphatase C-Reactive Protein Total Protein Albumin Lipase Vitamin B12 TSH Urine WBC (Auto) Urine Chloride Urine Total Protein Vancomycin Trough Crossmatch 10/19/16 10/19/16 10/19/16 06:01 06:30 12:20 WBC RBC Hgb Hct MCV RDW Plt Count Lymph % (Auto) [place] % (Auto) [place] # Seg Neutrophils % Seg Neuts % (Manual) Lymphocytes % (Manual) Monocytes % (Manual) Basophils % (Manual) Nucleated RBC % Seg Neutrophils # Seg Neutrophils # Man Lymphocytes # (Manual) Monocytes # (Manual) Eosinophils # (Manual) Basophils # (Manual) PT INR APTT Heparin Anti-Xa Level POC ABG pH POC ABG pCO2 POC ABG pO2 Sodium Potassium Chloride Carbon Dioxide 18 L BUN Creatinine 1.3 H Glucose 262 H POC Glucose 261 H 349 H Calcium 7.7 L Phosphorus 4.8 H D Magnesium AST Alkaline Phosphatase C-Reactive Protein Total Protein Albumin Lipase Vitamin B12 TSH Urine WBC (Auto) Urine Chloride Urine Total Protein Vancomycin Trough Crossmatch 10/19/16 10/20/16 10/20/16 16:48 00:17 05:20 WBC 22.5 H RBC 2.80 L Hgb 8.9 L Hct 28.3 L MCV 101 H RDW Plt Count Lymph % (Auto) [place] % (Auto) [place] # Seg Neutrophils % Seg Neuts % (Manual) Lymphocytes % (Manual) 10.0 L Monocytes % (Manual) Basophils % (Manual) Nucleated RBC % Seg Neutrophils # Seg Neutrophils # Man 13.3 H Lymphocytes # (Manual) Monocytes # (Manual) 1.1 H Eosinophils # (Manual) 0.7 H Basophils # (Manual) PT INR APTT Heparin Anti-Xa Level POC ABG pH POC ABG pCO2 POC ABG pO2 Sodium Potassium Chloride Carbon Dioxide BUN Creatinine Glucose POC Glucose 248 H 346 H Calcium Phosphorus Magnesium AST Alkaline Phosphatase C-Reactive Protein Total Protein Albumin Lipase Vitamin B12 TSH Urine WBC (Auto) Urine Chloride Urine Total Protein Vancomycin Trough Crossmatch 10/20/16 10/20/16 10/20/16 05:20 05:20 06:05 WBC RBC Hgb Hct MCV RDW Plt Count Lymph % (Auto) [place] % (Auto) [place] # Seg Neutrophils % Seg Neuts % (Manual) Lymphocytes % (Manual) Monocytes % (Manual) Basophils % (Manual) Nucleated RBC % Seg Neutrophils # Seg Neutrophils # Man Lymphocytes # (Manual) Monocytes # (Manual) Eosinophils # (Manual) Basophils # (Manual) PT INR APTT Heparin Anti-Xa Level 0.20 L POC ABG pH POC ABG pCO2 POC ABG pO2 Sodium Potassium Chloride Carbon Dioxide BUN 20 H Creatinine Glucose 374 H POC Glucose 337 H Calcium 8.3 L Phosphorus Magnesium AST Alkaline Phosphatase C-Reactive Protein Total Protein Albumin Lipase Vitamin B12 TSH Urine WBC (Auto) Urine Chloride Urine Total Protein Vancomycin Trough Crossmatch 10/20/16 10/20/16 10/20/16 11:49 13:59 17:56 WBC RBC Hgb Hct MCV RDW Plt Count Lymph % (Auto) [place] % (Auto) [place] # Seg Neutrophils % Seg Neuts % (Manual) Lymphocytes % (Manual) Monocytes % (Manual) Basophils % (Manual) Nucleated RBC % Seg Neutrophils # Seg Neutrophils # Man Lymphocytes # (Manual) Monocytes # (Manual) Eosinophils # (Manual) Basophils # (Manual) PT INR APTT Heparin Anti-Xa Level 2.00 H POC ABG pH POC ABG pCO2 POC ABG pO2 Sodium Potassium Chloride Carbon Dioxide BUN Creatinine Glucose POC Glucose 305 H 362 H Calcium Phosphorus Magnesium AST Alkaline Phosphatase C-Reactive Protein Total Protein Albumin Lipase Vitamin B12 TSH Urine WBC (Auto) Urine Chloride Urine Total Protein Vancomycin Trough Crossmatch 10/20/16 10/21/16 10/21/16 23:52 05:00 05:49 WBC 22.9 H RBC 2.49 L Hgb 7.7 L Hct 25.6 L MCV 103 H RDW Plt Count Lymph % (Auto) [place] % (Auto) [place] # Seg Neutrophils % Seg Neuts % (Manual) 94.0 H Lymphocytes % (Manual) 1.0 L Monocytes % (Manual) Basophils % (Manual) Nucleated RBC % Seg Neutrophils # Seg Neutrophils # Man 21.5 H Lymphocytes # (Manual) 0.2 L Monocytes # (Manual) 1.1 H Eosinophils # (Manual) Basophils # (Manual) PT INR APTT Heparin Anti-Xa Level POC ABG pH POC ABG pCO2 POC ABG pO2 Sodium Potassium Chloride Carbon Dioxide BUN Creatinine Glucose POC Glucose 252 H 180 H Calcium Phosphorus Magnesium AST Alkaline Phosphatase C-Reactive Protein Total Protein Albumin Lipase Vitamin B12 TSH Urine WBC (Auto) Urine Chloride Urine Total Protein Vancomycin Trough Crossmatch 10/21/16 10/21/16 10/21/16 11:47 11:49 14:10 WBC RBC Hgb Hct MCV RDW Plt Count Lymph % (Auto) [place] % (Auto) [place] # Seg Neutrophils % Seg Neuts % (Manual) Lymphocytes % (Manual) Monocytes % (Manual) Basophils % (Manual) Nucleated RBC % Seg Neutrophils # Seg Neutrophils # Man Lymphocytes # (Manual) Monocytes # (Manual) Eosinophils # (Manual) Basophils # (Manual) PT INR APTT Heparin Anti-Xa Level POC ABG pH POC ABG pCO2 POC ABG pO2 Sodium Potassium Chloride Carbon Dioxide BUN Creatinine Glucose POC Glucose 50 L 56 L 140 H Calcium Phosphorus Magnesium AST Alkaline Phosphatase C-Reactive Protein Total Protein Albumin Lipase Vitamin B12 TSH Urine WBC (Auto) Urine Chloride Urine Total Protein Vancomycin Trough Crossmatch 10/21/16 10/21/16 10/22/16 18:24 Unknown 00:07 WBC RBC Hgb Hct MCV RDW Plt Count Lymph % (Auto) [place] % (Auto) [place] # Seg Neutrophils % Seg Neuts % (Manual) Lymphocytes % (Manual) Monocytes % (Manual) Basophils % (Manual) Nucleated RBC % Seg Neutrophils # Seg Neutrophils # Man Lymphocytes # (Manual) Monocytes # (Manual) Eosinophils # (Manual) Basophils # (Manual) PT INR APTT Heparin Anti-Xa Level POC ABG pH POC ABG pCO2 POC ABG pO2 Sodium 150 H Potassium 3.1 L Chloride 112.4 H Carbon Dioxide BUN 25 H Creatinine 1.4 H Glucose POC Glucose 175 H 218 H Calcium 8.0 L Phosphorus Magnesium AST Alkaline Phosphatase C-Reactive Protein Total Protein Albumin Lipase Vitamin B12 TSH Urine WBC (Auto) Urine Chloride Urine Total Protein Vancomycin Trough Crossmatch 10/22/16 10/22/16 10/22/16 04:20 04:20 10:25 WBC 20.8 H RBC 2.37 L Hgb 7.5 L Hct 23.9 L MCV 101 H RDW Plt Count Lymph % (Auto) [place] % (Auto) [place] # Seg Neutrophils % Seg Neuts % (Manual) 89.0 H Lymphocytes % (Manual) 7.0 L Monocytes % (Manual) Basophils % (Manual) Nucleated RBC % Seg Neutrophils # Seg Neutrophils # Man 18.5 H Lymphocytes # (Manual) Monocytes # (Manual) Eosinophils # (Manual) Basophils # (Manual) 0.2 H PT INR APTT Heparin Anti-Xa Level POC ABG pH POC ABG pCO2 POC ABG pO2 Sodium 148 H Potassium 2.9 L* Chloride 109.4 H Carbon Dioxide BUN 26 H Creatinine Glucose 140 H POC Glucose Calcium 7.5 L Phosphorus Magnesium AST Alkaline Phosphatase C-Reactive Protein Total Protein Albumin Lipase Vitamin B12 976.8 H TSH Urine WBC (Auto) Urine Chloride Urine Total Protein Vancomycin Trough Crossmatch 10/22/16 10/22/16 10/22/16 10:25 14:50 18:16 WBC RBC Hgb Hct MCV RDW Plt Count Lymph % (Auto) [place] % (Auto) [place] # Seg Neutrophils % Seg Neuts % (Manual) Lymphocytes % (Manual) Monocytes % (Manual) Basophils % (Manual) Nucleated RBC % Seg Neutrophils # Seg Neutrophils # Man Lymphocytes # (Manual) Monocytes # (Manual) Eosinophils # (Manual) Basophils # (Manual) PT INR APTT Heparin Anti-Xa Level POC ABG pH POC ABG pCO2 POC ABG pO2 Sodium Potassium Chloride Carbon Dioxide BUN Creatinine Glucose POC Glucose 193 H Calcium Phosphorus Magnesium AST Alkaline Phosphatase C-Reactive Protein Total Protein Albumin Lipase Vitamin B12 TSH 0.143 L 0.162 L Urine WBC (Auto) Urine Chloride Urine Total Protein Vancomycin Trough Crossmatch 10/22/16 10/22/16 10/22/16 20:00 20:00 20:00 WBC 24.1 H RBC 2.58 L Hgb 8.2 L Hct 26.4 L MCV 102 H RDW Plt Count Lymph % (Auto) [place] % (Auto) [place] # Seg Neutrophils % Seg Neuts % (Manual) 74.0 H Lymphocytes % (Manual) 7.0 L Monocytes % (Manual) Basophils % (Manual) Nucleated RBC % Seg Neutrophils # Seg Neutrophils # Man 17.8 H Lymphocytes # (Manual) Monocytes # (Manual) Eosinophils # (Manual) Basophils # (Manual) PT INR APTT Heparin Anti-Xa Level 1.92 H POC ABG pH POC ABG pCO2 POC ABG pO2 Sodium Potassium Chloride Carbon Dioxide BUN Creatinine Glucose POC Glucose Calcium Phosphorus Magnesium AST Alkaline Phosphatase C-Reactive Protein Total Protein Albumin Lipase Vitamin B12 TSH Urine WBC (Auto) Urine Chloride Urine Total Protein Vancomycin Trough Crossmatch See Detail 10/23/16 10/23/16 10/23/16 00:21 06:09 12:07 WBC RBC Hgb Hct MCV RDW Plt Count Lymph % (Auto) [place] % (Auto) [place] # Seg Neutrophils % Seg Neuts % (Manual) Lymphocytes % (Manual) Monocytes % (Manual) Basophils % (Manual) Nucleated RBC % Seg Neutrophils # Seg Neutrophils # Man Lymphocytes # (Manual) Monocytes # (Manual) Eosinophils # (Manual) Basophils # (Manual) PT INR APTT Heparin Anti-Xa Level POC ABG pH POC ABG pCO2 POC ABG pO2 Sodium Potassium Chloride Carbon Dioxide BUN Creatinine Glucose POC Glucose 283 H 241 H 340 H Calcium Phosphorus Magnesium AST Alkaline Phosphatase C-Reactive Protein Total Protein Albumin Lipase Vitamin B12 TSH Urine WBC (Auto) Urine Chloride Urine Total Protein Vancomycin Trough Crossmatch 10/23/16 10/23/16 10/23/16 14:01 16:00 17:59 WBC RBC Hgb Hct MCV RDW Plt Count Lymph % (Auto) [place] % (Auto) [place] # Seg Neutrophils % Seg Neuts % (Manual) Lymphocytes % (Manual) Monocytes % (Manual) Basophils % (Manual) Nucleated RBC % Seg Neutrophils # Seg Neutrophils # Man Lymphocytes # (Manual) Monocytes # (Manual) Eosinophils # (Manual) Basophils # (Manual) PT INR APTT Heparin Anti-Xa Level 0.19 L POC ABG pH POC ABG pCO2 32.4 L POC ABG pO2 Sodium Potassium Chloride Carbon Dioxide BUN Creatinine Glucose POC Glucose 245 H Calcium Phosphorus Magnesium AST Alkaline Phosphatase C-Reactive Protein Total Protein Albumin Lipase Vitamin B12 TSH Urine WBC (Auto) Urine Chloride Urine Total Protein Vancomycin Trough Crossmatch 10/23/16 10/23/16 10/23/16 22:55 Unknown Unknown WBC 22.6 H RBC 3.26 L Hgb Hct MCV RDW 17.1 H Plt Count Lymph % (Auto) [place] % (Auto) [place] # Seg Neutrophils % Seg Neuts % (Manual) Lymphocytes % (Manual) 11.0 L Monocytes % (Manual) Basophils % (Manual) Nucleated RBC % Seg Neutrophils # Seg Neutrophils # Man 14.0 H Lymphocytes # (Manual) Monocytes # (Manual) Eosinophils # (Manual) Basophils # (Manual) PT INR APTT Heparin Anti-Xa Level 0.17 L 0.15 L POC ABG pH POC ABG pCO2 POC ABG pO2 Sodium Potassium Chloride Carbon Dioxide BUN Creatinine Glucose POC Glucose Calcium Phosphorus Magnesium AST Alkaline Phosphatase C-Reactive Protein Total Protein Albumin Lipase Vitamin B12 TSH Urine WBC (Auto) Urine Chloride Urine Total Protein Vancomycin Trough Crossmatch 10/23/16 10/24/16 10/24/16 Unknown 00:05 05:30 WBC RBC Hgb Hct MCV RDW Plt Count Lymph % (Auto) [place] % (Auto) [place] # Seg Neutrophils % Seg Neuts % (Manual) Lymphocytes % (Manual) Monocytes % (Manual) Basophils % (Manual) Nucleated RBC % Seg Neutrophils # Seg Neutrophils # Man Lymphocytes # (Manual) Monocytes # (Manual) Eosinophils # (Manual) Basophils # (Manual) PT INR APTT Heparin Anti-Xa Level 0.13 L POC ABG pH POC ABG pCO2 POC ABG pO2 Sodium Potassium Chloride 111.2 H Carbon Dioxide 20 L BUN 25 H Creatinine Glucose 227 H POC Glucose 118 H Calcium 7.1 L Phosphorus Magnesium AST Alkaline Phosphatase C-Reactive Protein Total Protein Albumin Lipase Vitamin B12 TSH Urine WBC (Auto) Urine Chloride Urine Total Protein Vancomycin Trough Crossmatch 10/24/16 10/24/16 10/24/16 11:00 11:00 12:06 WBC 17.6 H RBC 2.92 L Hgb 9.2 L Hct 28.3 L MCV RDW 16.9 H Plt Count Lymph % (Auto) [place] % (Auto) [place] # Seg Neutrophils % Seg Neuts % (Manual) Lymphocytes % (Manual) Monocytes % (Manual) Basophils % (Manual) Nucleated RBC % Seg Neutrophils # Seg Neutrophils # Man Lymphocytes # (Manual) Monocytes # (Manual) Eosinophils # (Manual) Basophils # (Manual) PT INR APTT Heparin Anti-Xa Level 0.27 L POC ABG pH POC ABG pCO2 POC ABG pO2 Sodium Potassium Chloride Carbon Dioxide BUN Creatinine Glucose POC Glucose 166 H Calcium Phosphorus Magnesium AST Alkaline Phosphatase C-Reactive Protein Total Protein Albumin Lipase Vitamin B12 TSH Urine WBC (Auto) Urine Chloride Urine Total Protein Vancomycin Trough Crossmatch 10/24/16 10/25/16 10/25/16 12:27 00:49 03:30 WBC RBC Hgb 8.8 L Hct 28.1 L MCV RDW Plt Count Lymph % (Auto) [place] % (Auto) [place] # Seg Neutrophils % Seg Neuts % (Manual) Lymphocytes % (Manual) Monocytes % (Manual) Basophils % (Manual) Nucleated RBC % Seg Neutrophils # Seg Neutrophils # Man Lymphocytes # (Manual) Monocytes # (Manual) Eosinophils # (Manual) Basophils # (Manual) PT INR APTT Heparin Anti-Xa Level POC ABG pH POC ABG pCO2 33.9 L POC ABG pO2 Sodium Potassium Chloride Carbon Dioxide BUN Creatinine Glucose POC Glucose 121 H Calcium Phosphorus Magnesium AST Alkaline Phosphatase C-Reactive Protein Total Protein Albumin Lipase Vitamin B12 TSH Urine WBC (Auto) Urine Chloride Urine Total Protein Vancomycin Trough Crossmatch 10/25/16 10/25/16 10/25/16 09:49 12:10 19:25 WBC 21.1 H RBC 3.02 L Hgb 9.3 L Hct 28.9 L MCV RDW 16.3 H Plt Count Lymph % (Auto) [place] % (Auto) [place] # Seg Neutrophils % Seg Neuts % (Manual) 81.0 H Lymphocytes % (Manual) 9.0 L Monocytes % (Manual) Basophils % (Manual) Nucleated RBC % Seg Neutrophils # Seg Neutrophils # Man 17.1 H Lymphocytes # (Manual) Monocytes # (Manual) Eosinophils # (Manual) Basophils # (Manual) PT INR APTT Heparin Anti-Xa Level POC ABG pH POC ABG pCO2 POC ABG pO2 Sodium Potassium Chloride Carbon Dioxide BUN Creatinine Glucose POC Glucose 158 H 151 H Calcium Phosphorus Magnesium AST Alkaline Phosphatase C-Reactive Protein Total Protein Albumin Lipase Vitamin B12 TSH Urine WBC (Auto) Urine Chloride Urine Total Protein Vancomycin Trough Crossmatch 10/26/16 10/26/16 10/26/16 00:20 01:09 05:02 WBC 22.2 H RBC 2.89 L Hgb 8.7 L Hct 27.8 L MCV RDW 16.4 H Plt Count Lymph % (Auto) [place] % (Auto) [place] # Seg Neutrophils % Seg Neuts % (Manual) Lymphocytes % (Manual) Monocytes % (Manual) Basophils % (Manual) Nucleated RBC % Seg Neutrophils # Seg Neutrophils # Man Lymphocytes # (Manual) Monocytes # (Manual) Eosinophils # (Manual) Basophils # (Manual) PT INR APTT Heparin Anti-Xa Level POC ABG pH POC ABG pCO2 POC ABG pO2 Sodium Potassium Chloride Carbon Dioxide BUN Creatinine Glucose POC Glucose 44 L 112 H Calcium Phosphorus Magnesium AST Alkaline Phosphatase C-Reactive Protein Total Protein Albumin Lipase Vitamin B12 TSH Urine WBC (Auto) Urine Chloride Urine Total Protein Vancomycin Trough Crossmatch 10/26/16 10/26/16 10/26/16 05:02 12:11 12:14 WBC RBC Hgb Hct MCV RDW Plt Count Lymph % (Auto) [place] % (Auto) [place] # Seg Neutrophils % Seg Neuts % (Manual) Lymphocytes % (Manual) Monocytes % (Manual) Basophils % (Manual) Nucleated RBC % Seg Neutrophils # Seg Neutrophils # Man Lymphocytes # (Manual) Monocytes # (Manual) Eosinophils # (Manual) Basophils # (Manual) PT INR APTT Heparin Anti-Xa Level POC ABG pH POC ABG pCO2 32.0 L POC ABG pO2 33 L Sodium Potassium 3.2 L D Chloride Carbon Dioxide 20 L BUN 24 H Creatinine Glucose 104 H POC Glucose 194 H Calcium 7.7 L Phosphorus Magnesium AST Alkaline Phosphatase C-Reactive Protein Total Protein Albumin Lipase Vitamin B12 TSH Urine WBC (Auto) Urine Chloride Urine Total Protein Vancomycin Trough Crossmatch 10/26/16 10/26/16 10/27/16 15:28 17:23 00:04 WBC RBC Hgb Hct MCV RDW Plt Count Lymph % (Auto) [place] % (Auto) [place] # Seg Neutrophils % Seg Neuts % (Manual) Lymphocytes % (Manual) Monocytes % (Manual) Basophils % (Manual) Nucleated RBC % Seg Neutrophils # Seg Neutrophils # Man Lymphocytes # (Manual) Monocytes # (Manual) Eosinophils # (Manual) Basophils # (Manual) PT INR APTT Heparin Anti-Xa Level POC ABG pH POC ABG pCO2 33.7 L POC ABG pO2 Sodium Potassium Chloride Carbon Dioxide BUN Creatinine Glucose POC Glucose 181 H 230 H Calcium Phosphorus Magnesium AST Alkaline Phosphatase C-Reactive Protein Total Protein Albumin Lipase Vitamin B12 TSH Urine WBC (Auto) Urine Chloride Urine Total Protein Vancomycin Trough Crossmatch 10/27/16 10/27/16 10/27/16 05:15 05:15 05:38 WBC 25.5 H RBC 3.07 L Hgb 9.4 L Hct 30.1 L MCV 98 H RDW 16.4 H Plt Count 527 H Lymph % (Auto) [place] % (Auto) [place] # Seg Neutrophils % Seg Neuts % (Manual) Lymphocytes % (Manual) Monocytes % (Manual) Basophils % (Manual) Nucleated RBC % Seg Neutrophils # Seg Neutrophils # Man Lymphocytes # (Manual) Monocytes # (Manual) Eosinophils # (Manual) Basophils # (Manual) PT INR APTT Heparin Anti-Xa Level POC ABG pH POC ABG pCO2 POC ABG pO2 Sodium Potassium Chloride Carbon Dioxide 19 L BUN 23 H Creatinine Glucose 160 H POC Glucose 168 H Calcium 8.0 L Phosphorus Magnesium AST Alkaline Phosphatase C-Reactive Protein Total Protein Albumin Lipase Vitamin B12 TSH Urine WBC (Auto) Urine Chloride Urine Total Protein Vancomycin Trough Crossmatch 10/27/16 10/27/16 10/27/16 11:59 18:35 23:48 WBC RBC Hgb Hct MCV RDW Plt Count Lymph % (Auto) [place] % (Auto) [place] # Seg Neutrophils % Seg Neuts % (Manual) Lymphocytes % (Manual) Monocytes % (Manual) Basophils % (Manual) Nucleated RBC % Seg Neutrophils # Seg Neutrophils # Man Lymphocytes # (Manual) Monocytes # (Manual) Eosinophils # (Manual) Basophils # (Manual) PT INR APTT Heparin Anti-Xa Level POC ABG pH POC ABG pCO2 POC ABG pO2 Sodium Potassium Chloride Carbon Dioxide BUN Creatinine Glucose POC Glucose 197 H 318 H 316 H Calcium Phosphorus Magnesium AST Alkaline Phosphatase C-Reactive Protein Total Protein Albumin Lipase Vitamin B12 TSH Urine WBC (Auto) Urine Chloride Urine Total Protein Vancomycin Trough Crossmatch 10/28/16 10/28/16 10/28/16 03:13 04:10 04:10 WBC 18.8 H RBC 2.64 L Hgb 8.1 L Hct 26.1 L MCV 99 H RDW 16.2 H Plt Count 544 H Lymph % (Auto) [place] % (Auto) [place] # Seg Neutrophils % Seg Neuts % (Manual) Lymphocytes % (Manual) Monocytes % (Manual) Basophils % (Manual) Nucleated RBC % Seg Neutrophils # Seg Neutrophils # Man Lymphocytes # (Manual) Monocytes # (Manual) Eosinophils # (Manual) Basophils # (Manual) PT INR APTT Heparin Anti-Xa Level POC ABG pH POC ABG pCO2 POC ABG pO2 Sodium Potassium Chloride Carbon Dioxide 21 L BUN 24 H Creatinine Glucose 302 H POC Glucose 304 H Calcium 7.7 L Phosphorus Magnesium AST Alkaline Phosphatase C-Reactive Protein Total Protein Albumin Lipase Vitamin B12 TSH Urine WBC (Auto) Urine Chloride Urine Total Protein Vancomycin Trough Crossmatch 10/28/16 10/28/16 10/28/16 04:10 12:36 18:27 WBC RBC Hgb Hct MCV RDW Plt Count Lymph % (Auto) [place] % (Auto) [place] # Seg Neutrophils % Seg Neuts % (Manual) Lymphocytes % (Manual) Monocytes % (Manual) Basophils % (Manual) Nucleated RBC % Seg Neutrophils # Seg Neutrophils # Man Lymphocytes # (Manual) Monocytes # (Manual) Eosinophils # (Manual) Basophils # (Manual) PT INR APTT Heparin Anti-Xa Level 0.20 L POC ABG pH POC ABG pCO2 POC ABG pO2 Sodium Potassium Chloride Carbon Dioxide BUN Creatinine Glucose POC Glucose 205 H 339 H Calcium Phosphorus Magnesium AST Alkaline Phosphatase C-Reactive Protein Total Protein Albumin Lipase Vitamin B12 TSH Urine WBC (Auto) Urine Chloride Urine Total Protein Vancomycin Trough Crossmatch 10/29/16 10/29/16 10/29/16 01:05 06:19 09:30 WBC 20.3 H RBC 2.80 L Hgb 8.5 L Hct 26.7 L MCV RDW 15.4 H Plt Count 571 H Lymph % (Auto) [place] % (Auto) [place] # Seg Neutrophils % Seg Neuts % (Manual) 75.0 H Lymphocytes % (Manual) 4.0 L Monocytes % (Manual) Basophils % (Manual) Nucleated RBC % Seg Neutrophils # Seg Neutrophils # Man 15.2 H Lymphocytes # (Manual) 0.8 L Monocytes # (Manual) Eosinophils # (Manual) Basophils # (Manual) PT INR APTT Heparin Anti-Xa Level POC ABG pH POC ABG pCO2 POC ABG pO2 Sodium Potassium Chloride Carbon Dioxide BUN Creatinine Glucose POC Glucose 275 H 179 H Calcium Phosphorus Magnesium AST Alkaline Phosphatase C-Reactive Protein Total Protein Albumin Lipase Vitamin B12 TSH Urine WBC (Auto) Urine Chloride Urine Total Protein Vancomycin Trough Crossmatch 10/29/16 10/29/16 10/29/16 11:46 15:18 17:55 WBC RBC Hgb Hct MCV RDW Plt Count Lymph % (Auto) [place] % (Auto) [place] # Seg Neutrophils % Seg Neuts % (Manual) Lymphocytes % (Manual) Monocytes % (Manual) Basophils % (Manual) Nucleated RBC % Seg Neutrophils # Seg Neutrophils # Man Lymphocytes # (Manual) Monocytes # (Manual) Eosinophils # (Manual) Basophils # (Manual) PT INR APTT Heparin Anti-Xa Level 1.15 H POC ABG pH POC ABG pCO2 POC ABG pO2 Sodium Potassium Chloride Carbon Dioxide BUN Creatinine Glucose POC Glucose 122 H 255 H Calcium Phosphorus Magnesium AST Alkaline Phosphatase C-Reactive Protein Total Protein Albumin Lipase Vitamin B12 TSH Urine WBC (Auto) Urine Chloride Urine Total Protein Vancomycin Trough Crossmatch 10/30/16 10/30/16 10/30/16 00:10 05:30 05:30 WBC 19.8 H RBC 2.51 L Hgb 7.7 L Hct 24.1 L MCV RDW 15.5 H Plt Count 534 H Lymph % (Auto) [place] % (Auto) [place] # Seg Neutrophils % Seg Neuts % (Manual) Lymphocytes % (Manual) Monocytes % (Manual) Basophils % (Manual) Nucleated RBC % Seg Neutrophils # Seg Neutrophils # Man Lymphocytes # (Manual) Monocytes # (Manual) Eosinophils # (Manual) Basophils # (Manual) PT INR APTT Heparin Anti-Xa Level POC ABG pH POC ABG pCO2 POC ABG pO2 Sodium Potassium Chloride Carbon Dioxide BUN Creatinine Glucose 211 H POC Glucose 202 H Calcium 7.4 L Phosphorus Magnesium AST Alkaline Phosphatase C-Reactive Protein Total Protein Albumin Lipase Vitamin B12 TSH Urine WBC (Auto) Urine Chloride Urine Total Protein Vancomycin Trough Crossmatch 10/30/16 10/30/16 10/30/16 06:32 12:51 17:47 WBC RBC Hgb Hct MCV RDW Plt Count Lymph % (Auto) [place] % (Auto) [place] # Seg Neutrophils % Seg Neuts % (Manual) Lymphocytes % (Manual) Monocytes % (Manual) Basophils % (Manual) Nucleated RBC % Seg Neutrophils # Seg Neutrophils # Man Lymphocytes # (Manual) Monocytes # (Manual) Eosinophils # (Manual) Basophils # (Manual) PT INR APTT Heparin Anti-Xa Level POC ABG pH POC ABG pCO2 POC ABG pO2 Sodium Potassium Chloride Carbon Dioxide BUN Creatinine Glucose POC Glucose 207 H 218 H 169 H Calcium Phosphorus Magnesium AST Alkaline Phosphatase C-Reactive Protein Total Protein Albumin Lipase Vitamin B12 TSH Urine WBC (Auto) Urine Chloride Urine Total Protein Vancomycin Trough Crossmatch 10/30/16 10/31/16 10/31/16 23:59 05:25 11:21 WBC RBC Hgb Hct MCV RDW Plt Count Lymph % (Auto) [place] % (Auto) [place] # Seg Neutrophils % Seg Neuts % (Manual) Lymphocytes % (Manual) Monocytes % (Manual) Basophils % (Manual) Nucleated RBC % Seg Neutrophils # Seg Neutrophils # Man Lymphocytes # (Manual) Monocytes # (Manual) Eosinophils # (Manual) Basophils # (Manual) PT INR APTT Heparin Anti-Xa Level POC ABG pH POC ABG pCO2 POC ABG pO2 Sodium Potassium Chloride Carbon Dioxide BUN Creatinine Glucose POC Glucose 138 H 127 H 132 H Calcium Phosphorus Magnesium AST Alkaline Phosphatase C-Reactive Protein Total Protein Albumin Lipase Vitamin B12 TSH Urine WBC (Auto) Urine Chloride Urine Total Protein Vancomycin Trough Crossmatch 10/31/16 10/31/16 11/01/16 17:07 23:54 05:47 WBC RBC Hgb Hct MCV RDW Plt Count Lymph % (Auto) [place] % (Auto) [place] # Seg Neutrophils % Seg Neuts % (Manual) Lymphocytes % (Manual) Monocytes % (Manual) Basophils % (Manual) Nucleated RBC % Seg Neutrophils # Seg Neutrophils # Man Lymphocytes # (Manual) Monocytes # (Manual) Eosinophils # (Manual) Basophils # (Manual) PT INR APTT Heparin Anti-Xa Level POC ABG pH POC ABG pCO2 POC ABG pO2 Sodium Potassium Chloride Carbon Dioxide BUN Creatinine Glucose POC Glucose 138 H 153 H 150 H Calcium Phosphorus Magnesium AST Alkaline Phosphatase C-Reactive Protein Total Protein Albumin Lipase Vitamin B12 TSH Urine WBC (Auto) Urine Chloride Urine Total Protein Vancomycin Trough Crossmatch 11/01/16 11/01/16 11/01/16 06:33 06:33 12:16 WBC 19.2 H RBC 2.51 L Hgb 7.9 L Hct 24.8 L MCV 99 H D RDW 16.1 H Plt Count 569 H Lymph % (Auto) [place] % (Auto) [place] # Seg Neutrophils % Seg Neuts % (Manual) Lymphocytes % (Manual) Monocytes % (Manual) Basophils % (Manual) Nucleated RBC % Seg Neutrophils # Seg Neutrophils # Man Lymphocytes # (Manual) Monocytes # (Manual) Eosinophils # (Manual) Basophils # (Manual) PT INR APTT Heparin Anti-Xa Level POC ABG pH POC ABG pCO2 POC ABG pO2 Sodium Potassium 3.5 L Chloride Carbon Dioxide 21 L BUN Creatinine Glucose 137 H POC Glucose 125 H Calcium 7.7 L Phosphorus Magnesium AST Alkaline Phosphatase 148 H C-Reactive Protein Total Protein 6.2 L Albumin 2.0 L Lipase Vitamin B12 TSH Urine WBC (Auto) Urine Chloride Urine Total Protein Vancomycin Trough Crossmatch 11/01/16 11/02/16 11/02/16 17:37 00:05 04:15 WBC RBC Hgb Hct MCV RDW Plt Count Lymph % (Auto) [place] % (Auto) [place] # Seg Neutrophils % Seg Neuts % (Manual) Lymphocytes % (Manual) Monocytes % (Manual) Basophils % (Manual) Nucleated RBC % Seg Neutrophils # Seg Neutrophils # Man Lymphocytes # (Manual) Monocytes # (Manual) Eosinophils # (Manual) Basophils # (Manual) PT INR APTT Heparin Anti-Xa Level < 0.10 L POC ABG pH POC ABG pCO2 POC ABG pO2 Sodium Potassium 3.2 L Chloride Carbon Dioxide BUN 6 L Creatinine Glucose 135 H POC Glucose 164 H Calcium 7.5 L Phosphorus Magnesium AST Alkaline Phosphatase 132 H C-Reactive Protein Total Protein 6.2 L Albumin 1.8 L Lipase Vitamin B12 TSH Urine WBC (Auto) Urine Chloride Urine Total Protein Vancomycin Trough Crossmatch 11/02/16 11/02/16 11/02/16 04:15 05:54 12:15 WBC 17.7 H RBC 2.43 L Hgb 7.6 L Hct 23.5 L MCV RDW 15.9 H Plt Count 502 H Lymph % (Auto) [place] % (Auto) [place] # Seg Neutrophils % Seg Neuts % (Manual) 84.0 H Lymphocytes % (Manual) 11.0 L Monocytes % (Manual) Basophils % (Manual) Nucleated RBC % 1.0 H Seg Neutrophils # Seg Neutrophils # Man 14.9 H Lymphocytes # (Manual) Monocytes # (Manual) Eosinophils # (Manual) Basophils # (Manual) PT INR APTT Heparin Anti-Xa Level POC ABG pH POC ABG pCO2 POC ABG pO2 Sodium Potassium Chloride Carbon Dioxide BUN Creatinine Glucose POC Glucose 152 H 137 H Calcium Phosphorus Magnesium AST Alkaline Phosphatase C-Reactive Protein Total Protein Albumin Lipase Vitamin B12 TSH Urine WBC (Auto) Urine Chloride Urine Total Protein Vancomycin Trough Crossmatch 11/02/16 11/03/16 11/03/16 17:00 00:05 00:05 WBC RBC Hgb Hct MCV RDW Plt Count Lymph % (Auto) [place] % (Auto) [place] # Seg Neutrophils % Seg Neuts % (Manual) Lymphocytes % (Manual) Monocytes % (Manual) Basophils % (Manual) Nucleated RBC % Seg Neutrophils # Seg Neutrophils # Man Lymphocytes # (Manual) Monocytes # (Manual) Eosinophils # (Manual) Basophils # (Manual) PT INR APTT Heparin Anti-Xa Level POC ABG pH POC ABG pCO2 POC ABG pO2 Sodium Potassium Chloride Carbon Dioxide 20 L BUN 5 L Creatinine Glucose 139 H POC Glucose 161 H Calcium 6.7 L Phosphorus Magnesium 1.2 L AST Alkaline Phosphatase C-Reactive Protein Total Protein Albumin Lipase Vitamin B12 TSH Urine WBC (Auto) Urine Chloride Urine Total Protein Vancomycin Trough Crossmatch 11/03/16 11/03/16 11/03/16 00:05 02:05 04:23 WBC 15.9 H 14.0 H RBC 1.93 L 2.38 L Hgb 5.9 L* 7.3 L Hct 18.9 L* 23.1 L MCV 98 H RDW 15.9 H 15.9 H Plt Count Lymph % (Auto) [place] % (Auto) [place] # Seg Neutrophils % Seg Neuts % (Manual) 85.0 H Lymphocytes % (Manual) 4.0 L Monocytes % (Manual) Basophils % (Manual) Nucleated RBC % Seg Neutrophils # Seg Neutrophils # Man 13.5 H Lymphocytes # (Manual) 0.6 L Monocytes # (Manual) Eosinophils # (Manual) Basophils # (Manual) PT INR APTT Heparin Anti-Xa Level POC ABG pH POC ABG pCO2 POC ABG pO2 Sodium Potassium Chloride Carbon Dioxide BUN 5 L Creatinine Glucose 127 H POC Glucose Calcium 7.2 L Phosphorus Magnesium AST Alkaline Phosphatase C-Reactive Protein Total Protein 5.8 L Albumin 1.5 L Lipase Vitamin B12 TSH Urine WBC (Auto) Urine Chloride Urine Total Protein Vancomycin Trough Crossmatch 11/03/16 11/03/16 11/03/16 09:14 09:27 11:54 WBC RBC Hgb Hct MCV RDW Plt Count Lymph % (Auto) [place] % (Auto) [place] # Seg Neutrophils % Seg Neuts % (Manual) Lymphocytes % (Manual) Monocytes % (Manual) Basophils % (Manual) Nucleated RBC % Seg Neutrophils # Seg Neutrophils # Man Lymphocytes # (Manual) Monocytes # (Manual) Eosinophils # (Manual) Basophils # (Manual) PT INR APTT Heparin Anti-Xa Level 0.11 L POC ABG pH POC ABG pCO2 POC ABG pO2 Sodium Potassium Chloride Carbon Dioxide BUN 5 L Creatinine Glucose 111 H POC Glucose 139 H Calcium 6.7 L Phosphorus Magnesium AST Alkaline Phosphatase C-Reactive Protein Total Protein Albumin Lipase Vitamin B12 TSH Urine WBC (Auto) Urine Chloride Urine Total Protein Vancomycin Trough Crossmatch 11/03/16 11/03/16 11/03/16 16:26 18:01 18:01 WBC RBC Hgb Hct MCV RDW Plt Count Lymph % (Auto) [place] % (Auto) [place] # Seg Neutrophils % Seg Neuts % (Manual) Lymphocytes % (Manual) Monocytes % (Manual) Basophils % (Manual) Nucleated RBC % Seg Neutrophils # Seg Neutrophils # Man Lymphocytes # (Manual) Monocytes # (Manual) Eosinophils # (Manual) Basophils # (Manual) PT INR APTT Heparin Anti-Xa Level 2.00 H POC ABG pH POC ABG pCO2 POC ABG pO2 Sodium Potassium Chloride Carbon Dioxide BUN Creatinine Glucose POC Glucose 142 H Calcium Phosphorus Magnesium AST Alkaline Phosphatase C-Reactive Protein Total Protein Albumin Lipase Vitamin B12 TSH Urine WBC (Auto) Urine Chloride Urine Total Protein Vancomycin Trough Crossmatch See Detail 11/04/16 11/04/16 11/04/16 02:15 02:15 06:35 WBC 11.8 H RBC 2.39 L Hgb 7.4 L Hct 23.1 L MCV RDW 15.9 H Plt Count Lymph % (Auto) [place] % (Auto) [place] # Seg Neutrophils % Seg Neuts % (Manual) 76.0 H Lymphocytes % (Manual) 12.0 L Monocytes % (Manual) 9.0 H Basophils % (Manual) Nucleated RBC % Seg Neutrophils # Seg Neutrophils # Man 9.0 H Lymphocytes # (Manual) Monocytes # (Manual) 1.1 H Eosinophils # (Manual) Basophils # (Manual) PT INR APTT Heparin Anti-Xa Level < 0.10 L POC ABG pH POC ABG pCO2 POC ABG pO2 Sodium Potassium Chloride Carbon Dioxide 21 L BUN 5 L Creatinine Glucose 112 H POC Glucose Calcium 6.8 L Phosphorus Magnesium AST Alkaline Phosphatase C-Reactive Protein Total Protein 5.7 L Albumin 1.7 L Lipase Vitamin B12 TSH Urine WBC (Auto) Urine Chloride Urine Total Protein Vancomycin Trough Crossmatch 11/04/16 11/04/16 11/04/16 10:51 12:58 15:04 WBC RBC Hgb Hct MCV RDW Plt Count Lymph % (Auto) [place] % (Auto) [place] # Seg Neutrophils % Seg Neuts % (Manual) Lymphocytes % (Manual) Monocytes % (Manual) Basophils % (Manual) Nucleated RBC % Seg Neutrophils # Seg Neutrophils # Man Lymphocytes # (Manual) Monocytes # (Manual) Eosinophils # (Manual) Basophils # (Manual) PT INR APTT Heparin Anti-Xa Level 1.05 H POC ABG pH POC ABG pCO2 33.7 L POC ABG pO2 60 L Sodium Potassium Chloride Carbon Dioxide BUN Creatinine Glucose POC Glucose 118 H Calcium Phosphorus Magnesium AST Alkaline Phosphatase C-Reactive Protein Total Protein Albumin Lipase Vitamin B12 TSH Urine WBC (Auto) Urine Chloride Urine Total Protein Vancomycin Trough Crossmatch 11/04/16 11/04/1617 17:20 20:31 02:30 WBC RBC Hgb Hct MCV RDW Plt Count Lymph % (Auto) [place] % (Auto) [place] # Seg Neutrophils % Seg Neuts % (Manual) Lymphocytes % (Manual) Monocytes % (Manual) Basophils % (Manual) Nucleated RBC % Seg Neutrophils # Seg Neutrophils # Man Lymphocytes # (Manual) Monocytes # (Manual) Eosinophils # (Manual) Basophils # (Manual) PT INR APTT Heparin Anti-Xa Level POC ABG pH POC ABG pCO2 POC ABG pO2 Sodium Potassium 3.5 L Chloride Carbon Dioxide 18 L BUN 5 L Creatinine 0.6 L Glucose 110 H POC Glucose 228 H 169 H Calcium 7.1 L Phosphorus Magnesium AST Alkaline Phosphatase C-Reactive Protein Total Protein Albumin 1.9 L Lipase Vitamin B12 TSH Urine WBC (Auto) Urine Chloride Urine Total Protein Vancomycin Trough Crossmatch 11/05/16 11/05/16 11/05/16 02:30 17:52 21:07 WBC 14.1 H RBC Hgb Hct MCV RDW 16.7 H Plt Count Lymph % (Auto) [place] % (Auto) [place] # Seg Neutrophils % Seg Neuts % (Manual) 80.0 H Lymphocytes % (Manual) 6.0 L Monocytes % (Manual) 8.0 H Basophils % (Manual) Nucleated RBC % Seg Neutrophils # Seg Neutrophils # Man 11.3 H Lymphocytes # (Manual) 0.8 L Monocytes # (Manual) 1.1 H Eosinophils # (Manual) Basophils # (Manual) PT INR APTT Heparin Anti-Xa Level < 0.10 L POC ABG pH POC ABG pCO2 POC ABG pO2 Sodium Potassium Chloride Carbon Dioxide BUN Creatinine Glucose POC Glucose 174 H Calcium Phosphorus Magnesium AST Alkaline Phosphatase C-Reactive Protein Total Protein Albumin Lipase Vitamin B12 TSH Urine WBC (Auto) Urine Chloride Urine Total Protein Vancomycin Trough Crossmatch 11/05/16 11/06/16 11/06/16 23:30 05:00 05:00 WBC 15.2 H RBC 3.29 L Hgb 10.0 L Hct MCV RDW 16.9 H Plt Count Lymph % (Auto) [place] % (Auto) [place] # Seg Neutrophils % Seg Neuts % (Manual) Lymphocytes % (Manual) Monocytes % (Manual) Basophils % (Manual) Nucleated RBC % Seg Neutrophils # Seg Neutrophils # Man Lymphocytes # (Manual) Monocytes # (Manual) Eosinophils # (Manual) Basophils # (Manual) PT INR APTT Heparin Anti-Xa Level 0.94 H POC ABG pH POC ABG pCO2 POC ABG pO2 Sodium Potassium Chloride Carbon Dioxide BUN Creatinine Glucose POC Glucose 131 H Calcium Phosphorus Magnesium AST Alkaline Phosphatase C-Reactive Protein Total Protein Albumin Lipase Vitamin B12 TSH Urine WBC (Auto) Urine Chloride Urine Total Protein Vancomycin Trough Crossmatch 11/06/16 11/06/16 11/06/16 05:00 11:45 18:23 WBC RBC Hgb Hct MCV RDW Plt Count Lymph % (Auto) [place] % (Auto) [place] # Seg Neutrophils % Seg Neuts % (Manual) Lymphocytes % (Manual) Monocytes % (Manual) Basophils % (Manual) Nucleated RBC % Seg Neutrophils # Seg Neutrophils # Man Lymphocytes # (Manual) Monocytes # (Manual) Eosinophils # (Manual) Basophils # (Manual) PT INR APTT Heparin Anti-Xa Level POC ABG pH POC ABG pCO2 POC ABG pO2 Sodium Potassium 3.5 L Chloride 107.1 H Carbon Dioxide 20 L BUN 4 L Creatinine 0.6 L Glucose 104 H POC Glucose 141 H 255 H Calcium 6.7 L Phosphorus Magnesium AST Alkaline Phosphatase C-Reactive Protein Total Protein Albumin Lipase Vitamin B12 TSH Urine WBC (Auto) Urine Chloride Urine Total Protein Vancomycin Trough Crossmatch 11/06/16 11/06/16 11/07/16 22:07 23:07 11:41 WBC RBC Hgb Hct MCV RDW Plt Count Lymph % (Auto) [place] % (Auto) [place] # Seg Neutrophils % Seg Neuts % (Manual) Lymphocytes % (Manual) Monocytes % (Manual) Basophils % (Manual) Nucleated RBC % Seg Neutrophils # Seg Neutrophils # Man Lymphocytes # (Manual) Monocytes # (Manual) Eosinophils # (Manual) Basophils # (Manual) PT INR APTT Heparin Anti-Xa Level 0.80 H POC ABG pH POC ABG pCO2 POC ABG pO2 Sodium Potassium Chloride Carbon Dioxide BUN Creatinine Glucose POC Glucose 183 H 132 H Calcium Phosphorus Magnesium AST Alkaline Phosphatase C-Reactive Protein Total Protein Albumin Lipase Vitamin B12 TSH Urine WBC (Auto) Urine Chloride Urine Total Protein Vancomycin Trough Crossmatch 11/07/16 11/07/16 11/07/16 12:17 17:05 17:58 WBC RBC Hgb Hct MCV RDW Plt Count Lymph % (Auto) [place] % (Auto) [place] # Seg Neutrophils % Seg Neuts % (Manual) Lymphocytes % (Manual) Monocytes % (Manual) Basophils % (Manual) Nucleated RBC % Seg Neutrophils # Seg Neutrophils # Man Lymphocytes # (Manual) Monocytes # (Manual) Eosinophils # (Manual) Basophils # (Manual) PT INR APTT Heparin Anti-Xa Level 0.87 H POC ABG pH 7.324 L POC ABG pCO2 POC ABG pO2 Sodium Potassium Chloride Carbon Dioxide BUN Creatinine Glucose POC Glucose 158 H Calcium Phosphorus Magnesium AST Alkaline Phosphatase C-Reactive Protein Total Protein Albumin Lipase Vitamin B12 TSH Urine WBC (Auto) Urine Chloride Urine Total Protein Vancomycin Trough Crossmatch 11/07/16 11/07/16 11/07/16 23:26 Unknown Unknown WBC 12.3 H RBC 2.96 L Hgb 9.1 L Hct 27.9 L MCV RDW 16.8 H Plt Count Lymph % (Auto) [place] % (Auto) [place] # Seg Neutrophils % Seg Neuts % (Manual) 80.0 H Lymphocytes % (Manual) 7.0 L Monocytes % (Manual) Basophils % (Manual) Nucleated RBC % Seg Neutrophils # Seg Neutrophils # Man 9.8 H Lymphocytes # (Manual) 0.9 L Monocytes # (Manual) Eosinophils # (Manual) Basophils # (Manual) PT INR APTT Heparin Anti-Xa Level POC ABG pH POC ABG pCO2 POC ABG pO2 Sodium Potassium Chloride Carbon Dioxide 19 L BUN Creatinine Glucose 106 H POC Glucose 130 H Calcium 6.9 L Phosphorus Magnesium AST Alkaline Phosphatase C-Reactive Protein Total Protein Albumin Lipase Vitamin B12 TSH Urine WBC (Auto) Urine Chloride Urine Total Protein Vancomycin Trough Crossmatch 11/07/16 11/08/16 11/08/16 Unknown 05:14 05:20 WBC 12.4 H RBC 3.04 L Hgb 9.2 L Hct 28.8 L MCV RDW 16.6 H Plt Count Lymph % (Auto) [place] % (Auto) [place] # Seg Neutrophils % Seg Neuts % (Manual) 77.0 H Lymphocytes % (Manual) 5.0 L Monocytes % (Manual) Basophils % (Manual) 2.0 H Nucleated RBC % Seg Neutrophils # Seg Neutrophils # Man 9.5 H Lymphocytes # (Manual) 0.6 L Monocytes # (Manual) Eosinophils # (Manual) Basophils # (Manual) 0.2 H PT INR APTT Heparin Anti-Xa Level 0.90 H POC ABG pH POC ABG pCO2 POC ABG pO2 Sodium Potassium Chloride Carbon Dioxide BUN Creatinine Glucose POC Glucose 204 H Calcium Phosphorus Magnesium AST Alkaline Phosphatase C-Reactive Protein Total Protein Albumin Lipase Vitamin B12 TSH Urine WBC (Auto) Urine Chloride Urine Total Protein Vancomycin Trough Crossmatch 11/08/16 11/08/16 11/08/16 05:20 12:10 13:10 WBC RBC Hgb Hct MCV RDW Plt Count Lymph % (Auto) [place] % (Auto) [place] # Seg Neutrophils % Seg Neuts % (Manual) Lymphocytes % (Manual) Monocytes % (Manual) Basophils % (Manual) Nucleated RBC % Seg Neutrophils # Seg Neutrophils # Man Lymphocytes # (Manual) Monocytes # (Manual) Eosinophils # (Manual) Basophils # (Manual) PT INR APTT Heparin Anti-Xa Level POC ABG pH POC ABG pCO2 33.7 L POC ABG pO2 Sodium 136 L Potassium Chloride Carbon Dioxide 19 L BUN Creatinine Glucose 192 H POC Glucose 180 H Calcium 7.1 L Phosphorus Magnesium AST Alkaline Phosphatase C-Reactive Protein Total Protein Albumin Lipase Vitamin B12 TSH Urine WBC (Auto) Urine Chloride Urine Total Protein Vancomycin Trough Crossmatch 11/08/16 11/08/16 11/08/16 17:26 20:45 23:34 WBC RBC Hgb Hct MCV RDW Plt Count Lymph % (Auto) [place] % (Auto) [place] # Seg Neutrophils % Seg Neuts % (Manual) Lymphocytes % (Manual) Monocytes % (Manual) Basophils % (Manual) Nucleated RBC % Seg Neutrophils # Seg Neutrophils # Man Lymphocytes # (Manual) Monocytes # (Manual) Eosinophils # (Manual) Basophils # (Manual) PT INR APTT Heparin Anti-Xa Level POC ABG pH POC ABG pCO2 POC ABG pO2 Sodium Potassium Chloride Carbon Dioxide BUN Creatinine Glucose POC Glucose 187 H 178 H Calcium Phosphorus Magnesium AST Alkaline Phosphatase C-Reactive Protein Total Protein Albumin Lipase Vitamin B12 TSH Urine WBC (Auto) Urine Chloride Urine Total Protein Vancomycin Trough 35.4 H Crossmatch 11/09/16 11/09/16 11/09/16 05:30 05:30 05:59 WBC 11.5 H RBC 2.96 L Hgb 9.2 L Hct 28.2 L MCV RDW 16.4 H Plt Count Lymph % (Auto) [place] % (Auto) [place] # Seg Neutrophils % Seg Neuts % (Manual) 76.0 H Lymphocytes % (Manual) 2.0 L Monocytes % (Manual) Basophils % (Manual) Nucleated RBC % Seg Neutrophils # Seg Neutrophils # Man 8.7 H Lymphocytes # (Manual) 0.2 L Monocytes # (Manual) Eosinophils # (Manual) Basophils # (Manual) PT INR APTT Heparin Anti-Xa Level POC ABG pH POC ABG pCO2 POC ABG pO2 Sodium Potassium 3.4 L Chloride 107.6 H Carbon Dioxide 19 L BUN Creatinine 0.6 L Glucose 207 H POC Glucose 263 H Calcium 7.3 L Phosphorus Magnesium AST Alkaline Phosphatase C-Reactive Protein Total Protein Albumin Lipase Vitamin B12 TSH Urine WBC (Auto) Urine Chloride Urine Total Protein Vancomycin Trough Crossmatch 11/09/16 11/09/16 11/09/16 11:49 15:24 18:04 WBC RBC Hgb Hct MCV RDW Plt Count Lymph % (Auto) [place] % (Auto) [place] # Seg Neutrophils % Seg Neuts % (Manual) Lymphocytes % (Manual) Monocytes % (Manual) Basophils % (Manual) Nucleated RBC % Seg Neutrophils # Seg Neutrophils # Man Lymphocytes # (Manual) Monocytes # (Manual) Eosinophils # (Manual) Basophils # (Manual) PT INR APTT Heparin Anti-Xa Level POC ABG pH POC ABG pCO2 33.8 L POC ABG pO2 131 H Sodium Potassium Chloride Carbon Dioxide BUN Creatinine Glucose POC Glucose 269 H 242 H Calcium Phosphorus Magnesium AST Alkaline Phosphatase C-Reactive Protein Total Protein Albumin Lipase Vitamin B12 TSH Urine WBC (Auto) Urine Chloride Urine Total Protein Vancomycin Trough Crossmatch 11/09/16 11/10/16 11/10/16 22:57 04:30 04:30 WBC 15.7 H RBC 3.17 L Hgb 9.7 L Hct 30.2 L MCV RDW 16.2 H Plt Count Lymph % (Auto) [place] % (Auto) [place] # Seg Neutrophils % Seg Neuts % (Manual) Lymphocytes % (Manual) Monocytes % (Manual) Basophils % (Manual) Nucleated RBC % Seg Neutrophils # Seg Neutrophils # Man 8.5 H Lymphocytes # (Manual) Monocytes # (Manual) Eosinophils # (Manual) 0.5 H Basophils # (Manual) PT INR APTT Heparin Anti-Xa Level POC ABG pH POC ABG pCO2 POC ABG pO2 Sodium Potassium Chloride Carbon Dioxide 19 L BUN Creatinine 0.6 L Glucose 199 H POC Glucose 239 H Calcium 7.8 L Phosphorus Magnesium AST Alkaline Phosphatase C-Reactive Protein Total Protein Albumin Lipase Vitamin B12 TSH Urine WBC (Auto) Urine Chloride Urine Total Protein Vancomycin Trough Crossmatch 11/10/16 11/10/16 11/10/16 04:30 11:32 16:00 WBC RBC Hgb Hct MCV RDW Plt Count Lymph % (Auto) [place] % (Auto) [place] # Seg Neutrophils % Seg Neuts % (Manual) Lymphocytes % (Manual) Monocytes % (Manual) Basophils % (Manual) Nucleated RBC % Seg Neutrophils # Seg Neutrophils # Man Lymphocytes # (Manual) Monocytes # (Manual) Eosinophils # (Manual) Basophils # (Manual) PT INR APTT Heparin Anti-Xa Level 1.09 H < 0.10 L POC ABG pH POC ABG pCO2 POC ABG pO2 Sodium Potassium Chloride Carbon Dioxide BUN Creatinine Glucose POC Glucose 211 H Calcium Phosphorus Magnesium AST Alkaline Phosphatase C-Reactive Protein Total Protein Albumin Lipase Vitamin B12 TSH Urine WBC (Auto) Urine Chloride Urine Total Protein Vancomycin Trough Crossmatch 11/10/16 11/10/16 11/10/16 17:39 18:00 23:06 WBC RBC Hgb Hct MCV RDW Plt Count Lymph % (Auto) [place] % (Auto) [place] # Seg Neutrophils % Seg Neuts % (Manual) Lymphocytes % (Manual) Monocytes % (Manual) Basophils % (Manual) Nucleated RBC % Seg Neutrophils # Seg Neutrophils # Man Lymphocytes # (Manual) Monocytes # (Manual) Eosinophils # (Manual) Basophils # (Manual) PT INR APTT Heparin Anti-Xa Level 0.85 H POC ABG pH POC ABG pCO2 POC ABG pO2 Sodium Potassium Chloride Carbon Dioxide BUN Creatinine Glucose POC Glucose 249 H 220 H Calcium Phosphorus Magnesium AST Alkaline Phosphatase C-Reactive Protein Total Protein Albumin Lipase Vitamin B12 TSH Urine WBC (Auto) Urine Chloride Urine Total Protein Vancomycin Trough Crossmatch 11/11/16 11/11/16 11/11/16 05:56 06:15 06:15 WBC 13.3 H RBC 2.87 L Hgb 8.7 L Hct 27.2 L MCV RDW 16.4 H Plt Count Lymph % (Auto) [place] % (Auto) [place] # 0.9 H Seg Neutrophils % 78.9 H Seg Neuts % (Manual) Lymphocytes % (Manual) Monocytes % (Manual) Basophils % (Manual) Nucleated RBC % Seg Neutrophils # 10.5 H Seg Neutrophils # Man Lymphocytes # (Manual) Monocytes # (Manual) Eosinophils # (Manual) Basophils # (Manual) PT INR APTT Heparin Anti-Xa Level POC ABG pH POC ABG pCO2 POC ABG pO2 Sodium Potassium 3.2 L Chloride Carbon Dioxide 19 L BUN Creatinine Glucose POC Glucose 117 H Calcium 7.6 L Phosphorus Magnesium AST Alkaline Phosphatase C-Reactive Protein Total Protein Albumin Lipase Vitamin B12 TSH Urine WBC (Auto) Urine Chloride Urine Total Protein Vancomycin Trough Crossmatch 11/11/16 11/11/16 11/11/16 12:26 16:58 17:33 WBC RBC Hgb Hct MCV RDW Plt Count Lymph % (Auto) [place] % (Auto) [place] # Seg Neutrophils % Seg Neuts % (Manual) Lymphocytes % (Manual) Monocytes % (Manual) Basophils % (Manual) Nucleated RBC % Seg Neutrophils # Seg Neutrophils # Man Lymphocytes # (Manual) Monocytes # (Manual) Eosinophils # (Manual) Basophils # (Manual) PT INR APTT Heparin Anti-Xa Level < 0.10 L POC ABG pH POC ABG pCO2 POC ABG pO2 Sodium Potassium Chloride Carbon Dioxide BUN Creatinine Glucose POC Glucose 114 H 161 H Calcium Phosphorus Magnesium AST Alkaline Phosphatase C-Reactive Protein Total Protein Albumin Lipase Vitamin B12 TSH Urine WBC (Auto) Urine Chloride Urine Total Protein Vancomycin Trough Crossmatch 11/12/16 11/12/16 11/12/16 05:00 05:00 05:00 WBC 12.8 H RBC 2.75 L Hgb 8.4 L Hct 25.7 L MCV RDW 16.3 H Plt Count Lymph % (Auto) [place] % (Auto) 7.5 H [place] # 1.0 H Seg Neutrophils % 78.0 H Seg Neuts % (Manual) Lymphocytes % (Manual) Monocytes % (Manual) Basophils % (Manual) Nucleated RBC % Seg Neutrophils # 10.0 H Seg Neutrophils # Man Lymphocytes # (Manual) Monocytes # (Manual) Eosinophils # (Manual) Basophils # (Manual) PT INR APTT Heparin Anti-Xa Level 0.87 H POC ABG pH POC ABG pCO2 POC ABG pO2 Sodium Potassium 3.4 L Chloride Carbon Dioxide 19 L BUN Creatinine Glucose 112 H POC Glucose Calcium 7.7 L Phosphorus Magnesium AST Alkaline Phosphatase C-Reactive Protein Total Protein Albumin Lipase Vitamin B12 TSH Urine WBC (Auto) Urine Chloride Urine Total Protein Vancomycin Trough Crossmatch 11/12/16 11/12/16 11/13/16 11:18 16:40 00:44 WBC RBC Hgb Hct MCV RDW Plt Count Lymph % (Auto) [place] % (Auto) [place] # Seg Neutrophils % Seg Neuts % (Manual) Lymphocytes % (Manual) Monocytes % (Manual) Basophils % (Manual) Nucleated RBC % Seg Neutrophils # Seg Neutrophils # Man Lymphocytes # (Manual) Monocytes # (Manual) Eosinophils # (Manual) Basophils # (Manual) PT INR APTT Heparin Anti-Xa Level POC ABG pH POC ABG pCO2 POC ABG pO2 Sodium Potassium Chloride Carbon Dioxide BUN Creatinine Glucose POC Glucose 135 H 139 H 169 H Calcium Phosphorus Magnesium AST Alkaline Phosphatase C-Reactive Protein Total Protein Albumin Lipase Vitamin B12 TSH Urine WBC (Auto) Urine Chloride Urine Total Protein Vancomycin Trough Crossmatch 11/13/16 11/13/16 11/13/16 05:28 05:28 06:02 WBC 12.7 H RBC 2.93 L Hgb 9.0 L Hct 27.6 L MCV RDW 16.1 H Plt Count Lymph % (Auto) [place] % (Auto) [place] # Seg Neutrophils % 78.6 H Seg Neuts % (Manual) Lymphocytes % (Manual) Monocytes % (Manual) Basophils % (Manual) Nucleated RBC % Seg Neutrophils # 10.0 H Seg Neutrophils # Man Lymphocytes # (Manual) Monocytes # (Manual) Eosinophils # (Manual) Basophils # (Manual) PT INR APTT Heparin Anti-Xa Level POC ABG pH POC ABG pCO2 POC ABG pO2 Sodium Potassium Chloride Carbon Dioxide 17 L BUN Creatinine Glucose 116 H POC Glucose 112 H Calcium 7.8 L Phosphorus Magnesium AST Alkaline Phosphatase C-Reactive Protein Total Protein Albumin Lipase Vitamin B12 TSH Urine WBC (Auto) Urine Chloride Urine Total Protein Vancomycin Trough Crossmatch 11/13/16 11/13/16 11/13/16 12:34 16:55 17:00 WBC RBC Hgb Hct MCV RDW Plt Count Lymph % (Auto) [place] % (Auto) [place] # Seg Neutrophils % Seg Neuts % (Manual) Lymphocytes % (Manual) Monocytes % (Manual) Basophils % (Manual) Nucleated RBC % Seg Neutrophils # Seg Neutrophils # Man Lymphocytes # (Manual) Monocytes # (Manual) Eosinophils # (Manual) Basophils # (Manual) PT INR APTT Heparin Anti-Xa Level POC ABG pH POC ABG pCO2 22.9 L POC ABG pO2 53 L Sodium Potassium Chloride Carbon Dioxide BUN Creatinine Glucose POC Glucose 109 H 122 H Calcium Phosphorus Magnesium AST Alkaline Phosphatase C-Reactive Protein Total Protein Albumin Lipase Vitamin B12 TSH Urine WBC (Auto) Urine Chloride Urine Total Protein Vancomycin Trough Crossmatch 11/13/16 11/14/16 11/14/16 23:33 04:42 04:42 WBC 11.7 H RBC 3.01 L Hgb 9.3 L Hct 28.9 L MCV RDW 16.5 H Plt Count Lymph % (Auto) [place] % (Auto) [place] # Seg Neutrophils % Seg Neuts % (Manual) 79.0 H Lymphocytes % (Manual) 10.0 L Monocytes % (Manual) Basophils % (Manual) Nucleated RBC % Seg Neutrophils # Seg Neutrophils # Man 9.2 H Lymphocytes # (Manual) Monocytes # (Manual) Eosinophils # (Manual) Basophils # (Manual) PT INR APTT Heparin Anti-Xa Level POC ABG pH POC ABG pCO2 POC ABG pO2 Sodium Potassium Chloride Carbon Dioxide 16 L BUN Creatinine Glucose 102 H POC Glucose 173 H Calcium 7.5 L Phosphorus Magnesium AST Alkaline Phosphatase C-Reactive Protein Total Protein Albumin Lipase Vitamin B12 TSH Urine WBC (Auto) Urine Chloride Urine Total Protein Vancomycin Trough Crossmatch 11/14/16 11/14/16 11/14/16 11:43 16:57 19:45 WBC RBC Hgb Hct MCV RDW Plt Count Lymph % (Auto) [place] % (Auto) [place] # Seg Neutrophils % Seg Neuts % (Manual) Lymphocytes % (Manual) Monocytes % (Manual) Basophils % (Manual) Nucleated RBC % Seg Neutrophils # Seg Neutrophils # Man Lymphocytes # (Manual) Monocytes # (Manual) Eosinophils # (Manual) Basophils # (Manual) PT INR APTT Heparin Anti-Xa Level 0.71 H POC ABG pH POC ABG pCO2 POC ABG pO2 Sodium Potassium Chloride Carbon Dioxide BUN Creatinine Glucose POC Glucose 130 H 209 H Calcium Phosphorus Magnesium AST Alkaline Phosphatase C-Reactive Protein Total Protein Albumin Lipase Vitamin B12 TSH Urine WBC (Auto) Urine Chloride Urine Total Protein Vancomycin Trough Crossmatch 11/14/16 11/15/16 11/16/16 23:43 23:47 06:11 WBC RBC Hgb Hct MCV RDW Plt Count Lymph % (Auto) [place] % (Auto) [place] # Seg Neutrophils % Seg Neuts % (Manual) Lymphocytes % (Manual) Monocytes % (Manual) Basophils % (Manual) Nucleated RBC % Seg Neutrophils # Seg Neutrophils # Man Lymphocytes # (Manual) Monocytes # (Manual) Eosinophils # (Manual) Basophils # (Manual) PT INR APTT Heparin Anti-Xa Level POC ABG pH POC ABG pCO2 POC ABG pO2 Sodium Potassium Chloride Carbon Dioxide BUN Creatinine Glucose POC Glucose 167 H 114 H 125 H Calcium Phosphorus Magnesium AST Alkaline Phosphatase C-Reactive Protein Total Protein Albumin Lipase Vitamin B12 TSH Urine WBC (Auto) Urine Chloride Urine Total Protein Vancomycin Trough Crossmatch 11/16/16 11/16/16 11/16/16 09:05 09:05 09:05 WBC RBC 2.53 L Hgb 8.0 L Hct 23.7 L MCV RDW 15.9 H Plt Count Lymph % (Auto) [place] % (Auto) [place] # Seg Neutrophils % Seg Neuts % (Manual) Lymphocytes % (Manual) Monocytes % (Manual) Basophils % (Manual) Nucleated RBC % Seg Neutrophils # Seg Neutrophils # Man Lymphocytes # (Manual) Monocytes # (Manual) Eosinophils # (Manual) Basophils # (Manual) PT INR APTT Heparin Anti-Xa Level POC ABG pH POC ABG pCO2 POC ABG pO2 Sodium Potassium 2.5 L* D Chloride Carbon Dioxide 19 L BUN 5 L Creatinine Glucose 103 H POC Glucose Calcium 6.6 L Phosphorus Magnesium 1.3 L AST Alkaline Phosphatase C-Reactive Protein Total Protein Albumin Lipase Vitamin B12 TSH Urine WBC (Auto) Urine Chloride Urine Total Protein Vancomycin Trough Crossmatch 11/16/16 11/16/16 11/16/16 12:15 13:00 14:45 WBC RBC Hgb Hct MCV RDW Plt Count Lymph % (Auto) [place] % (Auto) [place] # Seg Neutrophils % Seg Neuts % (Manual) Lymphocytes % (Manual) Monocytes % (Manual) Basophils % (Manual) Nucleated RBC % Seg Neutrophils # Seg Neutrophils # Man Lymphocytes # (Manual) Monocytes # (Manual) Eosinophils # (Manual) Basophils # (Manual) PT 19.1 H INR 1.61 H APTT Heparin Anti-Xa Level POC ABG pH 7.479 H POC ABG pCO2 23.6 L POC ABG pO2 Sodium Potassium Chloride Carbon Dioxide BUN Creatinine Glucose POC Glucose 129 H Calcium Phosphorus Magnesium AST Alkaline Phosphatase C-Reactive Protein Total Protein Albumin Lipase Vitamin B12 TSH Urine WBC (Auto) Urine Chloride Urine Total Protein Vancomycin Trough Crossmatch 11/16/16 11/17/16 11/17/16 17:43 00:30 04:32 WBC RBC Hgb Hct MCV RDW Plt Count Lymph % (Auto) [place] % (Auto) [place] # Seg Neutrophils % Seg Neuts % (Manual) Lymphocytes % (Manual) Monocytes % (Manual) Basophils % (Manual) Nucleated RBC % Seg Neutrophils # Seg Neutrophils # Man Lymphocytes # (Manual) Monocytes # (Manual) Eosinophils # (Manual) Basophils # (Manual) PT INR APTT Heparin Anti-Xa Level POC ABG pH POC ABG pCO2 POC ABG pO2 Sodium Potassium Chloride Carbon Dioxide 18 L BUN Creatinine Glucose 127 H POC Glucose 224 H 259 H Calcium 7.5 L Phosphorus Magnesium AST Alkaline Phosphatase C-Reactive Protein Total Protein Albumin Lipase Vitamin B12 TSH Urine WBC (Auto) Urine Chloride Urine Total Protein Vancomycin Trough Crossmatch 11/17/16 11/17/16 11/17/16 05:42 08:34 12:19 WBC RBC 2.85 L Hgb 8.9 L Hct 26.5 L MCV RDW 16.2 H Plt Count Lymph % (Auto) [place] % (Auto) [place] # Seg Neutrophils % Seg Neuts % (Manual) Lymphocytes % (Manual) Monocytes % (Manual) Basophils % (Manual) Nucleated RBC % Seg Neutrophils # Seg Neutrophils # Man Lymphocytes # (Manual) Monocytes # (Manual) Eosinophils # (Manual) Basophils # (Manual) PT INR APTT Heparin Anti-Xa Level POC ABG pH POC ABG pCO2 POC ABG pO2 Sodium Potassium Chloride Carbon Dioxide BUN Creatinine Glucose POC Glucose 118 H 264 H Calcium Phosphorus Magnesium AST Alkaline Phosphatase C-Reactive Protein Total Protein Albumin Lipase Vitamin B12 TSH Urine WBC (Auto) Urine Chloride Urine Total Protein Vancomycin Trough Crossmatch 11/17/16 11/17/16 11/18/16 16:52 23:44 04:53 WBC RBC Hgb Hct MCV RDW Plt Count Lymph % (Auto) [place] % (Auto) [place] # Seg Neutrophils % Seg Neuts % (Manual) Lymphocytes % (Manual) Monocytes % (Manual) Basophils % (Manual) Nucleated RBC % Seg Neutrophils # Seg Neutrophils # Man Lymphocytes # (Manual) Monocytes # (Manual) Eosinophils # (Manual) Basophils # (Manual) PT INR APTT Heparin Anti-Xa Level POC ABG pH POC ABG pCO2 POC ABG pO2 Sodium Potassium Chloride Carbon Dioxide BUN Creatinine Glucose POC Glucose 256 H 109 H 287 H Calcium Phosphorus Magnesium AST Alkaline Phosphatase C-Reactive Protein Total Protein Albumin Lipase Vitamin B12 TSH Urine WBC (Auto) Urine Chloride Urine Total Protein Vancomycin Trough Crossmatch 11/18/16 11/18/16 11/18/16 05:31 05:45 05:45 WBC RBC Hgb Hct MCV RDW Plt Count Lymph % (Auto) [place] % (Auto) [place] # Seg Neutrophils % Seg Neuts % (Manual) Lymphocytes % (Manual) Monocytes % (Manual) Basophils % (Manual) Nucleated RBC % Seg Neutrophils # Seg Neutrophils # Man Lymphocytes # (Manual) Monocytes # (Manual) Eosinophils # (Manual) Basophils # (Manual) PT 20.1 H INR 1.72 H APTT 131.1 H* Heparin Anti-Xa Level 0.18 L POC ABG pH 7.252 L POC ABG pCO2 32.0 L POC ABG pO2 Sodium Potassium Chloride 107.1 H Carbon Dioxide 17 L BUN Creatinine Glucose 284 H POC Glucose Calcium 7.2 L Phosphorus Magnesium AST Alkaline Phosphatase C-Reactive Protein Total Protein 5.5 L Albumin 2.1 L Lipase Vitamin B12 TSH Urine WBC (Auto) Urine Chloride Urine Total Protein Vancomycin Trough Crossmatch 11/18/16 11/18/16 11/18/16 05:45 09:17 12:06 WBC 13.3 H RBC 3.07 L Hgb 9.2 L Hct 29.5 L MCV RDW 16.9 H Plt Count Lymph % (Auto) 11.0 L [place] % (Auto) [place] # Seg Neutrophils % 82.9 H Seg Neuts % (Manual) Lymphocytes % (Manual) Monocytes % (Manual) Basophils % (Manual) Nucleated RBC % Seg Neutrophils # 11.0 H Seg Neutrophils # Man Lymphocytes # (Manual) Monocytes # (Manual) Eosinophils # (Manual) Basophils # (Manual) PT INR APTT Heparin Anti-Xa Level POC ABG pH POC ABG pCO2 24.3 L POC ABG pO2 79 L Sodium Potassium Chloride Carbon Dioxide BUN Creatinine Glucose POC Glucose 433 H Calcium Phosphorus Magnesium AST Alkaline Phosphatase C-Reactive Protein Total Protein Albumin Lipase Vitamin B12 TSH Urine WBC (Auto) Urine Chloride Urine Total Protein Vancomycin Trough Crossmatch 11/18/16 11/18/16 11/18/16 12:09 13:00 17:22 WBC 12.6 H RBC 2.79 L Hgb 8.6 L Hct 26.6 L MCV RDW 17.0 H Plt Count Lymph % (Auto) [place] % (Auto) [place] # Seg Neutrophils % Seg Neuts % (Manual) 90.0 H Lymphocytes % (Manual) 8.0 L Monocytes % (Manual) Basophils % (Manual) Nucleated RBC % Seg Neutrophils # Seg Neutrophils # Man 11.3 H Lymphocytes # (Manual) 1.0 L Monocytes # (Manual) Eosinophils # (Manual) Basophils # (Manual) PT INR APTT Heparin Anti-Xa Level POC ABG pH POC ABG pCO2 POC ABG pO2 Sodium Potassium Chloride Carbon Dioxide BUN Creatinine Glucose POC Glucose 429 H 297 H Calcium Phosphorus Magnesium AST Alkaline Phosphatase C-Reactive Protein Total Protein Albumin Lipase Vitamin B12 TSH Urine WBC (Auto) Urine Chloride Urine Total Protein Vancomycin Trough Crossmatch 11/18/16 11/19/16 11/19/16 23:27 04:30 04:30 WBC RBC 2.92 L Hgb 8.8 L Hct 27.0 L MCV RDW 16.6 H Plt Count Lymph % (Auto) [place] % (Auto) [place] # Seg Neutrophils % Seg Neuts % (Manual) Lymphocytes % (Manual) Monocytes % (Manual) Basophils % (Manual) Nucleated RBC % Seg Neutrophils # Seg Neutrophils # Man Lymphocytes # (Manual) Monocytes # (Manual) Eosinophils # (Manual) Basophils # (Manual) PT INR APTT Heparin Anti-Xa Level POC ABG pH POC ABG pCO2 POC ABG pO2 Sodium Potassium 3.0 L Chloride 107.9 H Carbon Dioxide 20 L BUN Creatinine Glucose 231 H POC Glucose 268 H Calcium 7.1 L Phosphorus Magnesium AST Alkaline Phosphatase C-Reactive Protein Total Protein 5.5 L Albumin 2.1 L Lipase Vitamin B12 TSH Urine WBC (Auto) Urine Chloride Urine Total Protein Vancomycin Trough Crossmatch 11/19/16 11/19/16 11/19/16 04:40 06:40 10:00 WBC RBC Hgb Hct MCV RDW Plt Count Lymph % (Auto) [place] % (Auto) [place] # Seg Neutrophils % Seg Neuts % (Manual) Lymphocytes % (Manual) Monocytes % (Manual) Basophils % (Manual) Nucleated RBC % Seg Neutrophils # Seg Neutrophils # Man Lymphocytes # (Manual) Monocytes # (Manual) Eosinophils # (Manual) Basophils # (Manual) PT INR APTT Heparin Anti-Xa Level POC ABG pH POC ABG pCO2 POC ABG pO2 Sodium Potassium Chloride Carbon Dioxide BUN Creatinine Glucose POC Glucose 267 H 244 H Calcium Phosphorus Magnesium 1.4 L AST Alkaline Phosphatase C-Reactive Protein Total Protein Albumin Lipase Vitamin B12 TSH Urine WBC (Auto) Urine Chloride Urine Total Protein Vancomycin Trough Crossmatch 11/19/16 11/19/16 11/19/16 12:08 18:10 23:40 WBC RBC Hgb Hct MCV RDW Plt Count Lymph % (Auto) [place] % (Auto) [place] # Seg Neutrophils % Seg Neuts % (Manual) Lymphocytes % (Manual) Monocytes % (Manual) Basophils % (Manual) Nucleated RBC % Seg Neutrophils # Seg Neutrophils # Man Lymphocytes # (Manual) Monocytes # (Manual) Eosinophils # (Manual) Basophils # (Manual) PT INR APTT Heparin Anti-Xa Level POC ABG pH POC ABG pCO2 POC ABG pO2 Sodium Potassium Chloride Carbon Dioxide BUN Creatinine Glucose POC Glucose 254 H 265 H 197 H Calcium Phosphorus Magnesium AST Alkaline Phosphatase C-Reactive Protein Total Protein Albumin Lipase Vitamin B12 TSH Urine WBC (Auto) Urine Chloride Urine Total Protein Vancomycin Trough Crossmatch 11/20/16 11/20/16 11/20/16 05:00 05:44 11:33 WBC RBC Hgb Hct MCV RDW Plt Count Lymph % (Auto) [place] % (Auto) [place] # Seg Neutrophils % Seg Neuts % (Manual) Lymphocytes % (Manual) Monocytes % (Manual) Basophils % (Manual) Nucleated RBC % Seg Neutrophils # Seg Neutrophils # Man Lymphocytes # (Manual) Monocytes # (Manual) Eosinophils # (Manual) Basophils # (Manual) PT INR APTT Heparin Anti-Xa Level POC ABG pH POC ABG pCO2 POC ABG pO2 Sodium Potassium 3.4 L Chloride 107.4 H Carbon Dioxide 20 L BUN Creatinine Glucose 140 H POC Glucose 163 H 108 H Calcium 7.2 L Phosphorus Magnesium AST Alkaline Phosphatase C-Reactive Protein Total Protein Albumin Lipase Vitamin B12 TSH Urine WBC (Auto) Urine Chloride Urine Total Protein Vancomycin Trough Crossmatch 11/20/16 11/20/16 11/20/16 13:03 16:45 23:26 WBC RBC Hgb Hct MCV RDW Plt Count Lymph % (Auto) [place] % (Auto) [place] # Seg Neutrophils % Seg Neuts % (Manual) Lymphocytes % (Manual) Monocytes % (Manual) Basophils % (Manual) Nucleated RBC % Seg Neutrophils # Seg Neutrophils # Man Lymphocytes # (Manual) Monocytes # (Manual) Eosinophils # (Manual) Basophils # (Manual) PT INR APTT Heparin Anti-Xa Level POC ABG pH POC ABG pCO2 POC ABG pO2 Sodium Potassium Chloride Carbon Dioxide BUN Creatinine Glucose POC Glucose 113 H 168 H Calcium Phosphorus Magnesium AST Alkaline Phosphatase C-Reactive Protein Total Protein Albumin Lipase Vitamin B12 TSH Urine WBC (Auto) Urine Chloride Urine Total Protein Vancomycin Trough 45.8 H Crossmatch 11/21/16 11/21/16 11/21/16 05:00 05:27 09:50 WBC RBC Hgb Hct MCV RDW Plt Count Lymph % (Auto) [place] % (Auto) Gilchrist # Seg Neutrophils % Seg Neuts % (Manual) Lymphocytes % (Manual) Monocytes % (Manual) Basophils % (Manual) Nucleated RBC % Seg Neutrophils # Seg Neutrophils # Man Lymphocytes # (Manual) Monocytes # (Manual) Eosinophils # (Manual) Basophils # (Manual) PT INR APTT Heparin Anti-Xa Level POC ABG pH POC ABG pCO2 POC ABG pO2 Sodium 133 L D Potassium Chloride Carbon Dioxide 19 L BUN Creatinine Glucose 280 H POC Glucose 222 H Calcium 7.4 L Phosphorus Magnesium AST Alkaline Phosphatase C-Reactive Protein Total Protein Albumin Lipase Vitamin B12 TSH Urine WBC (Auto) Urine Chloride Urine Total Protein Vancomycin Trough 30.4 H Crossmatch 11/21/16 11/21/16 11/21/16 12:36 17:17 18:34 WBC RBC Hgb Hct MCV RDW Plt Count Lymph % (Auto) [place] % (Auto) Gilchrist # Seg Neutrophils % Seg Neuts % (Manual) Lymphocytes % (Manual) Monocytes % (Manual) Basophils % (Manual) Nucleated RBC % Seg Neutrophils # Seg Neutrophils # Man Lymphocytes # (Manual) Monocytes # (Manual) Eosinophils # (Manual) Basophils # (Manual) PT INR APTT Heparin Anti-Xa Level POC ABG pH POC ABG pCO2 POC ABG pO2 Sodium Potassium Chloride Carbon Dioxide BUN Creatinine Glucose POC Glucose 306 H 339 H 318 H Calcium Phosphorus Magnesium AST Alkaline Phosphatase C-Reactive Protein Total Protein Albumin Lipase Vitamin B12 TSH Urine WBC (Auto) Urine Chloride Urine Total Protein Vancomycin Trough Crossmatch 11/21/16 11/22/16 23:16 07:19 WBC RBC Hgb Hct MCV RDW Plt Count Lymph % (Auto) [place] % (Auto) [place] # Seg Neutrophils % Seg Neuts % (Manual) Lymphocytes % (Manual) Monocytes % (Manual) Basophils % (Manual) Nucleated RBC % Seg Neutrophils # Seg Neutrophils # Man Lymphocytes # (Manual) Monocytes # (Manual) Eosinophils # (Manual) Basophils # (Manual) PT INR APTT Heparin Anti-Xa Level POC ABG pH POC ABG pCO2 POC ABG pO2 Sodium Potassium Chloride Carbon Dioxide BUN Creatinine Glucose POC Glucose 286 H 371 H Calcium Phosphorus Magnesium AST Alkaline Phosphatase C-Reactive Protein Total Protein Albumin Lipase Vitamin B12 TSH Urine WBC (Auto) Urine Chloride Urine Total Protein Vancomycin Trough Crossmatch
[2016-11-22 12:16] LABS: Basophils % (Auto) 0.6 % (0.0-1.8); Eosinophils % (Auto) 1.1 % (0.0-4.3); Hematocrit 24.4 % (30.3-42.9); Hemoglobin 7.8 gm/dl (10.1-14.3); Mean Corpuscular HGB Conc 32 % (30-34); Mean Corpuscular Hemoglobin 30 pg (28-32); Mean Corpuscular Volume 94 fl (79-97); Platelet Count 262 K/mm3 (140-440); Red Cell Distribution Width 16.3 % (13.2-15.2); White Blood Count 11.1 K/mm3 (4.5-11.0)
[2016-11-22 12:27] LABS: Anion Gap 15 mmol/L; BUN/Creatinine Ratio 18.18; Blood Urea Nitrogen 20 mg/dL (7-17); Calcium 7.2 mg/dL (8.4-10.2); Carbon Dioxide 19 mmol/L (22-30); Chloride 99.5 mmol/L (98-107); Glucose 266 mg/dL (65-100); Potassium 3.8 mmol/L (3.6-5.0); Sodium 130 mmol/L (137-145)
--- NOTE | 2016-11-22 17:11 | Progress Note ---
Assessment and Plan Assessment and plan: 66-year-old woman who presented with lethargy and altered mental status she deteriorated and was intubated and in emergency room, she was managed for DKA and she also developed sepsis due to UTI and right lower extremity ischemia * S/P cardiopulomary arrest. 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 all questions answered. Family meeting with daughter, and grandchild with greatgrand child in attendance. Case mangement and social service assistant and bedside nurse were also present. * Poor prognosis. * MRI brain with no gross abnormality * Highly concerning for anoxic brain injury. Await final input from neurology. * Neurologic input noted. EEG abnormal. * Replace potassium and magnessium * Heparin had to be held due to the risk associated considering recent CPR with chest compressions. * Patient remains at risk for right BKA remains poor prognosis and likely will need a conversion to AKA. Holding off heparin which is necessary at this time also worsens that prescription. * Continue subcutaneous insulin and electrolyte replacement * Patient unfortunately has poor prognosis has been unable to be weaned from the vent prior to the cardiopulmonary arrest was doing well on spontaneous breathing and event. * Antibiotics per ID * Continue Cardizem and beta juan antonio * Monitor electrolytes and hemoglobin. * continue dilantin * DVT and GI prophylaxis 45 mins critical care time. History Interval history: Patient seen and examined, opens eyes at will. remains on vent. family at bedside. no other event. Hospitalist Physical - Physical exam Narrative exam: VITAL SIGNS: Reviewed. GENERAL: vent support Vital signs as documented. HEAD: No signs of head trauma. EYES: Pupils are equal. Extraocular motions intact. EARS: Hearing grossly intact. MOUTH: missing dentition NECK: Trach CHEST: Chest with diminshed CARDIAC: Regular rate and rhythm. S1 and S2, without murmurs, gallops, or rubs. VASCULAR: trace Edema. Peripheral pulses left lower ext ABDOMEN: Soft, distended, tender. No rebound or guarding, and no masses palpated. Bowel Sounds normal. MUSCULOSKELETAL: BKA right lower extremity dressing in place. Some necrosis to the lateral aspect. NEUROLOGIC EXAM: not following commands, opens and closes eyes none purposeful PSYCHIATRIC: unable to assess SKIN: dressing to right lower ext stump, superficial necrosis - Constitutional Vitals: Temp Pulse Resp BP Pulse Ox 98.6 F 93 H 25 H 128/51 100 11/22/16 16:00 11/22/16 15:41 11/22/16 11:30 11/22/16 15:41 11/22/16 15:53 General appearance: Present: no acute distress Results - Labs CBC & Chem 7: 11/22/16 11:49 11/22/16 11:50 Labs: Laboratory Last Values WBC 11.1 K/mm3 (4.5-11.0) H 11/22/16 11:49 RBC 2.60 M/mm3 (3.65-5.03) L 11/22/16 11:49 Hgb 7.8 gm/dl (10.1-14.3) L 11/22/16 11:49 Hct 24.4 % (30.3-42.9) L 11/22/16 11:49 MCV 94 fl (79-97) 11/22/16 11:49 MCH 30 pg (28-32) 11/22/16 11:49 MCHC 32 % (30-34) 11/22/16 11:49 RDW 16.3 % (13.2-15.2) H 11/22/16 11:49 Plt Count 262 K/mm3 (140-440) 11/22/16 11:49 Lymph % (Auto) 14.8 % (13.4-35.0) 11/22/16 11:49 [place] % (Auto) 6.7 % (0.0-7.3) 11/22/16 11:49 Eos % (Auto) 1.1 % (0.0-4.3) 11/22/16 11:49 Baso % (Auto) 0.6 % (0.0-1.8) 11/22/16 11:49 Lymph # 1.6 K/mm3 (1.2-5.4) 11/22/16 11:49 [place] # 0.7 K/mm3 (0.0-0.8) 11/22/16 11:49 Eos # 0.1 K/mm3 (0.0-0.4) 11/22/16 11:49 Baso # 0.1 K/mm3 (0.0-0.1) 11/22/16 11:49 Add Manual Diff Complete 11/18/16 13:00 Total Counted 100 11/18/16 13:00 Seg Neutrophils % 76.8 % (40.0-70.0) H 11/22/16 11:49 Seg Neuts % (Manual) 90.0 % (40.0-70.0) H 11/18/16 13:00 Band Neutrophils % 0 % 11/18/16 13:00 Lymphocytes % (Manual) 8.0 % (13.4-35.0) L 11/18/16 13:00 Reactive Lymphs % (Man) 0 % 11/18/16 13:00 Monocytes % (Manual) 2.0 % (0.0-7.3) 11/18/16 13:00 Eosinophils % (Manual) 0 % (0.0-4.3) 11/18/16 13:00 Basophils % (Manual) 0 % (0.0-1.8) 11/18/16 13:00 Metamyelocytes % 0 % 11/18/16 13:00 Myelocytes % 0 % 11/18/16 13:00 Promyelocytes % 0 % 11/18/16 13:00 Blast Cells % 0 % 11/18/16 13:00 Nucleated RBC % Not Reportable 11/18/16 13:00 Seg Neutrophils # 8.5 K/mm3 (1.8-7.7) H 11/22/16 11:49 Seg Neutrophils # Man 11.3 K/mm3 (1.8-7.7) H 11/18/16 13:00 Band Neutrophils # 0.0 K/mm3 11/18/16 13:00 Lymphocytes # (Manual) 1.0 K/mm3 (1.2-5.4) L 11/18/16 13:00 Abs React Lymphs (Man) 0.0 K/mm3 11/18/16 13:00 Monocytes # (Manual) 0.3 K/mm3 (0.0-0.8) 11/18/16 13:00 Eosinophils # (Manual) 0.0 K/mm3 (0.0-0.4) 11/18/16 13:00 Basophils # (Manual) 0.0 K/mm3 (0.0-0.1) 11/18/16 13:00 Metamyelocytes # 0.0 K/mm3 11/18/16 13:00 Myelocytes # 0.0 K/mm3 11/18/16 13:00 Promyelocytes # 0.0 K/mm3 11/18/16 13:00 Blast Cells # 0.0 K/mm3 11/18/16 13:00 Pathologist Review 10/29/16 09:30 WBC Morphology Not Reportable 11/18/16 13:00 Hypersegmented Neuts Not Reportable 11/18/16 13:00 Hyposegmented Neuts Not Reportable 11/18/16 13:00 Hypogranular Neuts Not Reportable 11/18/16 13:00 Hypersegmented Polys TNR 10/17/16 07:08 Smudge Cells Not Reportable 11/18/16 13:00 Toxic Granulation Not Reportable 11/18/16 13:00 Toxic Vacuolation Not Reportable 11/18/16 13:00 Dohle Bodies Not Reportable 11/18/16 13:00 Pelger-Huet Anomaly Not Reportable 11/18/16 13:00 [place] Rods Not Reportable 11/18/16 13:00 Platelet Estimate Consistent w auto 11/18/16 13:00 Clumped Platelets Not Reportable 11/18/16 13:00 Plt Clumps, EDTA Not Reportable 11/18/16 13:00 Large Platelets Not Reportable 11/18/16 13:00 Giant Platelets Not Reportable 11/18/16 13:00 Platelet Satelliting Not Reportable 11/18/16 13:00 Plt Morphology Comment Not Reportable 11/18/16 13:00 RBC Morphology Not Reportable 11/18/16 13:00 Dimorphic RBCs Not Reportable 11/18/16 13:00 Polychromasia Not Reportable 11/18/16 13:00 Hypochromasia Not Reportable 11/18/16 13:00 Poikilocytosis Not Reportable 11/18/16 13:00 Basophilic Stippling TNR 10/17/16 07:08 Anisocytosis 1+ 11/18/16 13:00 Microcytosis Not Reportable 11/18/16 13:00 Macrocytosis Not Reportable 11/18/16 13:00 Spherocytes Not Reportable 11/18/16 13:00 Pappenheimer Bodies Not Reportable 11/18/16 13:00 Sickle Cells Not Reportable 11/18/16 13:00 Target Cells Not Reportable 11/18/16 13:00 Tear Drop Cells Not Reportable 11/18/16 13:00 Ovalocytes Not Reportable 11/18/16 13:00 Stomatocytes Few 11/03/16 00:05 Helmet Cells Not Reportable 11/18/16 13:00 [place] Bodies Not Reportable 11/18/16 13:00 [place] Rings Not Reportable 11/18/16 13:00 Jeannette Cells Not Reportable 11/18/16 13:00 Bite Cells Not Reportable 11/18/16 13:00 Crenated Cell Not Reportable 11/18/16 13:00 Elliptocytes Not Reportable 11/18/16 13:00 Acanthocytes (Spur) Not Reportable 11/18/16 13:00 Rouleaux Not Reportable 11/18/16 13:00 Hemoglobin C Crystals Not Reportable 11/18/16 13:00 Schistocytes Not Reportable 11/18/16 13:00 Malaria parasites Not Reportable 11/18/16 13:00 David Bodies Not Reportable 11/18/16 13:00 Hem Pathologist Commnt No 11/18/16 13:00 PT 20.1 Sec. (12.2-14.9) H 11/18/16 05:45 INR 1.72 (0.87-1.13) H 11/18/16 05:45 APTT 131.1 Sec. (24.2-36.6) H* 11/18/16 05:45 Heparin Anti-Xa Level 0.51 U.I./ml (0.3-0.7) 11/18/16 11:16 POC ABG pH 7.434 (7.35-7.45) 11/18/16 09:17 POC ABG pCO2 24.3 (35-45) L 11/18/16 09:17 POC ABG pO2 79 (80-105) L 11/18/16 09:17 POC ABG HCO3 16.3 11/18/16 09:17 POC ABG Total CO2 17 11/18/16 09:17 POC ABG O2 Sat 96 11/18/16 09:17 POC ABG Base Excess -8 11/18/16 09:17 VBG pH 7.020 (7.320-7.420) L* 10/13/16 04:22 FiO2 50 % 11/18/16 09:17 Sodium 130 mmol/L (137-145) L 11/22/16 11:50 Potassium 3.8 mmol/L (3.6-5.0) 11/22/16 11:50 Chloride 99.5 mmol/L (98-107) 11/22/16 11:50 Carbon Dioxide 19 mmol/L (22-30) L 11/22/16 11:50 Anion Gap 15 mmol/L 11/22/16 11:50 BUN 20 mg/dL (7-17) H 11/22/16 11:50 Creatinine 1.1 mg/dL (0.7-1.2) 11/22/16 11:50 Estimated GFR > 60 ml/min 11/22/16 11:50 BUN/Creatinine Ratio 18.18 % 11/22/16 11:50 Glucose 266 mg/dL (65-100) H 11/22/16 11:50 POC Glucose 262 (70-105) H 11/22/16 11:50 Osmolality 332 Mosm/kg 10/14/16 07:03 Lactic Acid 1.8 mmol/L (0.7-2.0) 10/14/16 07:03 Calcium 7.2 mg/dL (8.4-10.2) L 11/22/16 11:50 Phosphorus 2.7 mg/dL (2.5-4.5) D 10/21/16 Unknown Magnesium 2.0 mg/dL (1.7-2.3) 11/20/16 05:00 Total Bilirubin 0.2 mg/dL (0.1-1.2) 11/19/16 04:30 AST 9 units/L (5-40) 11/19/16 04:30 ALT 7 units/L (7-56) 11/19/16 04:30 Alkaline Phosphatase 82 units/L (35-129) 11/19/16 04:30 Ammonia 35.0 umol/L (25-60) 10/13/16 05:40 Total Creatine Kinase 107 units/L (30-135) 10/13/16 04:22 CK-MB (CK-2) 3.1 ng/mL (0.0-4.0) 10/13/16 04:22 CK-MB (CK-2) Rel Index 2.8 (0-4) 10/13/16 04:22 Troponin T < 0.010 ng/mL (0.00-0.029) 10/14/16 18:55 C-Reactive Protein 10.50 mg/dL (0.00-1.30) H 10/13/16 16:14 Total Protein 5.5 g/dL (6.3-8.2) L 11/19/16 04:30 Albumin 2.1 g/dL (3.9-5) L 11/19/16 04:30 Albumin/Globulin Ratio 0.6 % 11/19/16 04:30 Amylase 30 units/L (27-131) 11/10/16 04:30 Lipase 41 units/L (13-60) 11/10/16 04:30 Vitamin B12 976.8 pg/mL (211-911) H 10/22/16 10:25 TSH 0.162 mlU/mL (0.270-4.200) L 10/22/16 14:50 Free T4 0.77 ng/dL (0.76-1.46) 10/22/16 14:50 Urine Color Yellow (Yellow) 11/14/16 19:39 Urine Turbidity Cloudy (Clear) 11/14/16 19:39 Urine pH 6.0 (5.0-7.0) 11/14/16 19:39 Ur Specific [place] 1.010 (1.003-1.030) 11/14/16 19:39 Urine Protein 30 mg/dl mg/dL (Negative) 11/14/16 19:39 Urine Glucose (UA) 50 mg/dL (Negative) 11/14/16 19:39 Urine Ketones 20 mg/dL (Negative) 11/14/16 19:39 Urine Blood Lg (Negative) 11/14/16 19:39 Urine Nitrite Neg (Negative) 11/14/16 19:39 Urine Bilirubin Neg (Negative) 11/14/16 19:39 Urine Urobilinogen < 2.0 mg/dL (<2.0) 11/14/16 19:39 Ur Leukocyte Esterase Sm (Negative) 11/14/16 19:39 Urine WBC (Auto) 3.0 /HPF (0.0-6.0) 11/14/16 19:39 Urine RBC (Auto) > 182.0 /HPF (0.0-6.0) 11/14/16 19:39 U Epithel Cells (Auto) 1.0 /HPF (0-13.0) 10/15/16 11:05 Urine Bacteria (Auto) 1+ /HPF (Negative) 11/14/16 19:39 Urine Mucus Few /HPF 11/14/16 19:39 Urine Yeast (Budding) 2+ /HPF 10/15/16 11:05 Urine Osmolality 487 Mosm/kg 10/13/16 Unknown Urine Creatinine < 4.2 mg/dL (0.1-20.0) 10/13/16 Unknown Protein/Creatinin Ratio 0.00 10/13/16 Unknown Urine Sodium 10 mEq/L 10/13/16 Unknown Urine Potassium 1.00 mEq/L 10/13/16 Unknown Urine Chloride 10.0 mEq/L (110-250) L 10/13/16 Unknown Urine Total Protein < 4 mg/dL (5-11.8) L 10/13/16 Unknown Vancomycin Trough 30.4 ug/mL (5.0-20.0) H 11/21/16 09:50 Random Vancomycin 19.4 ug/mL (0-40.0) 11/11/16 06:15 Ketones 107.3 mg/dL (0.2-2.8) H 10/13/16 04:22 Blood Type A POSITIVE 11/03/16 18:01 Antibody Screen Negative 11/03/16 18:01 Crossmatch See Detail 11/03/16 18:01
[2016-11-22 20:17] LABS: ISTAT Base Excess -6; ISTAT HCO3 17.8; ISTAT PCO2 23.2 (35-45); ISTAT PH 7.492 (7.35-7.45); ISTAT PO2 60 (80-105); ISTAT SO2 93; ISTAT TCO2 18
[2016-11-22] MEDS: DILAUDID IV PRN (20:45)
[2016-11-23] MEDS: DILANTIN IV SCH ×3 (06:30→22:55)
[2016-11-23] MEDS: REGLAN IV SCH ×2 (06:30→12:41)
[2016-11-23] MEDS: HEPARIN SUB-Q SCH ×3 (06:30→22:55)
[2016-11-23] MEDS: LOPRESSOR PO SCH ×2 (06:30→12:41)
[2016-11-23] MEDS: FLAGYL 500 MG/100 ML 500 MG/100 ML BAG IV SCH ×2 (08:01→16:33)
[2016-11-23 08:49] LABS: Hematocrit 24.9 % (30.3-42.9); Hemoglobin 8.2 gm/dl (10.1-14.3)
[2016-11-23] MEDS: LEVAQUIN 750MG/150ML 750 MG/150 ML BAG IV SCH (09:18)
[2016-11-23] MEDS: PLAVIX PO SCH (09:19)
[2016-11-23] MEDS: LEVEMIR SUB-Q SCH (09:19)
[2016-11-23] MEDS: PEPCID PO SCH ×2 (09:19→22:55)
--- NOTE | 2016-11-23 11:26 | Progress Note ---
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 weaning likelyhood even poorer - continue PSV trials as tolerated - rest on AC qhs during wean (2) Altered mental status Current Visit: Yes Status: Acute Qualifiers: Altered mental status type: A Coma depth: C Coma timing: C Plan to address problem: - likely anoxic encephalopathy at this point - no active grand-mal seizures - seen by neurology and will follow their recommendations - reviewed EEG and MRI reports and appears overall prognosis guarded at best (3) LUCY (acute kidney injury) Current Visit: Yes Status: Acute Plan to address problem: - resolved - following I's & O's - tube feeds restarted and tolerating well so far (4) DKA (diabetic ketoacidoses) Current Visit: Yes Status: Acute Qualifiers: Diabetes mellitus type: D Diabetes mellitus complication detail: D Plan to address problem: - resolved - continue SSI - continue levemir but increase dose (5) Sepsis Current Visit: No Status: Acute Qualifiers: Sepsis type: S Plan to address problem: - complete anti-infectives per ID recs - follow clinically - trend lactate and CRP prn (6) Emesis Current Visit: Yes Status: Acute Qualifiers: Vomiting type: V Vomiting Intractability: V Nausea presence: N Plan to address problem: - continue increased reglan dose - reduced fentanyl dose and using other sedatives/anxiolytics (re: opiates and G.I. motility) - continue aspiration precautions - GI input appreciated - improved (7) Discharge planning issues Current Visit: No Status: Acute Plan to address problem: - cardiac arrest and potential anoxic encephalopathy makes prognosis more guarded now - LTAC evaluation ongoing ...for now remains critically ill on life sustaining treatments including MVS and at high risk for further deterioration including ...30' CCT Subjective Date of service: 11/23/16 Principal diagnosis: respiratory failure on mechanical ventilatory support, DKA Interval history: Seen and examined at bedside; 24 hour events reviewed; nursing and respiratory care staff consulted; no adverse overnight events reported to me; remains on MVS; weaning tenuously; AMS is persistent; no new issues otherwise Objective Vital Signs - 12hr 11/22/16 11/22/16 11/23/16 23:30 23:42 00:00 Temperature 99.3 F Pulse Rate 90 90 90 Pulse Rate [ 90 From Monitor] Respiratory 31 H 26 H Rate Respiratory Rate [Right Leg ] Blood Pressure 124/54 124/54 129/60 O2 Sat by Pulse 100 100 Oximetry O2 Sat by Pulse Oximetry [ Assessment] 11/23/16 11/23/16 11/23/16 00:26 00:30 01:00 Temperature Pulse Rate 86 86 82 Pulse Rate [ From Monitor] Respiratory 35 H 29 H Rate Respiratory Rate [Right Leg ] Blood Pressure 129/60 128/67 125/61 O2 Sat by Pulse 100 100 100 Oximetry O2 Sat by Pulse Oximetry [ Assessment] 11/23/16 11/23/16 11/23/16 01:30 02:00 02:30 Temperature Pulse Rate 84 84 82 Pulse Rate [ From Monitor] Respiratory 28 H 19 16 Rate Respiratory Rate [Right Leg ] Blood Pressure 129/56 125/55 124/57 O2 Sat by Pulse 100 100 Oximetry O2 Sat by Pulse Oximetry [ Assessment] 11/23/16 11/23/16 11/23/16 03:00 03:30 04:00 Temperature 99.4 F Pulse Rate 81 89 88 Pulse Rate [ From Monitor] Respiratory 28 H 28 H 29 H Rate Respiratory Rate [Right Leg ] Blood Pressure 118/64 124/57 118/64 O2 Sat by Pulse 100 100 100 Oximetry O2 Sat by Pulse Oximetry [ Assessment] 11/23/16 11/23/16 11/23/16 04:15 04:30 05:00 Temperature Pulse Rate 85 87 90 Pulse Rate [ 87 From Monitor] Respiratory 19 16 Rate Respiratory Rate [Right Leg ] Blood Pressure 135/63 135/63 O2 Sat by Pulse 100 100 100 Oximetry O2 Sat by Pulse Oximetry [ Assessment] 11/23/16 11/23/16 11/23/16 05:30 06:00 06:30 Temperature Pulse Rate 84 86 131 H Pulse Rate [ From Monitor] Respiratory 23 30 H 31 H Rate Respiratory Rate [Right Leg ] Blood Pressure 130/69 135/60 132/63 O2 Sat by Pulse 100 100 100 Oximetry O2 Sat by Pulse Oximetry [ Assessment] 11/23/16 11/23/16 11/23/16 07:00 07:30 08:00 Temperature 99.4 F Pulse Rate 127 H 124 H 125 H Pulse Rate [ 125 H From Monitor] Respiratory 23 30 H 30 H Rate Respiratory Rate [Right Leg ] Blood Pressure 128/62 123/68 130/67 O2 Sat by Pulse 100 100 100 Oximetry O2 Sat by Pulse Oximetry [ Assessment] 11/23/16 11/23/16 11/23/16 08:06 08:30 09:00 Temperature Pulse Rate 124 H 126 H 126 H Pulse Rate [ From Monitor] Respiratory 38 H 33 H Rate Respiratory Rate [Right Leg ] Blood Pressure 130/67 134/75 129/70 O2 Sat by Pulse 100 99 99 Oximetry O2 Sat by Pulse Oximetry [ Assessment] 11/23/16 11/23/16 11/23/16 09:30 09:43 10:00 Temperature Pulse Rate 128 H 127 H Pulse Rate [ From Monitor] Respiratory 34 H 31 H Rate Respiratory 28 H Rate [Right Leg ] Blood Pressure 142/69 129/75 O2 Sat by Pulse 99 100 Oximetry O2 Sat by Pulse 100 Oximetry [ Assessment] Constitutional: other (Patient S/P CPR. Patient likely has anoxic encephalopathy ) Eyes: non-icteric ENT: oropharynx moist Neck: supple, no lymphadenopathy Effort: mildly labored Ascultation: Bilateral: diminished breath sounds, rales Cardiovascular: regular rate and rhythm, other (tachycardia) Gastrointestinal: hypoactive bowel sounds, soft, non-distended Integumentary: normal Extremities: no cyanosis, no edema, no ischemia or petechiae, other (s/p right BKA) Neurologic: unable to assess, other (encephalopathic) Psychiatric: other (encephalopathic) CBC and BMP: 11/24/16 04:50 11/24/16 04:50 ABG, PT/INR, D-dimer: ABG POC ABG pH 7.492 (7.35-7.45) H 11/22/16 20:04 POC ABG pCO2 23.2 (35-45) L 11/22/16 20:04 POC ABG pO2 60 (80-105) L 11/22/16 20:04 POC ABG HCO3 17.8 11/22/16 20:04 POC ABG Total CO2 18 11/22/16 20:04 POC ABG O2 Sat 93 11/22/16 20:04 PT/INR, D-dimer PT 20.1 Sec. (12.2-14.9) H 11/18/16 05:45 INR 1.72 (0.87-1.13) H 11/18/16 05:45 Abnormal lab findings: Abnormal Labs 10/13/16 10/13/16 10/13/16 06:38 06:38 07:23 WBC RBC Hgb Hct MCV RDW Plt Count Lymph % (Auto) [place] % (Auto) [place] # Seg Neutrophils % Seg Neuts % (Manual) Lymphocytes % (Manual) Monocytes % (Manual) Basophils % (Manual) Nucleated RBC % Seg Neutrophils # Seg Neutrophils # Man Lymphocytes # (Manual) Monocytes # (Manual) Eosinophils # (Manual) Basophils # (Manual) PT INR APTT Heparin Anti-Xa Level POC ABG pH POC ABG pCO2 POC ABG pO2 Sodium Potassium 6.2 H* Chloride Carbon Dioxide 8 L* BUN 85 H Creatinine 2.8 H Glucose 602 H* POC Glucose 495 H Calcium 7.9 L Phosphorus 6.9 H D Magnesium 3.0 H AST Alkaline Phosphatase C-Reactive Protein Total Protein Albumin Lipase Vitamin B12 TSH Urine WBC (Auto) Urine Chloride Urine Total Protein Vancomycin Trough Crossmatch 10/13/16 10/13/16 10/13/16 08:49 08:55 10:12 WBC RBC Hgb Hct MCV RDW Plt Count Lymph % (Auto) [place] % (Auto) [place] # Seg Neutrophils % Seg Neuts % (Manual) Lymphocytes % (Manual) Monocytes % (Manual) Basophils % (Manual) Nucleated RBC % Seg Neutrophils # Seg Neutrophils # Man Lymphocytes # (Manual) Monocytes # (Manual) Eosinophils # (Manual) Basophils # (Manual) PT INR APTT Heparin Anti-Xa Level POC ABG pH POC ABG pCO2 POC ABG pO2 Sodium Potassium 5.6 H Chloride Carbon Dioxide 11 L BUN 77 H Creatinine 2.7 H Glucose 457 H POC Glucose > 500 H 424 H Calcium 8.0 L Phosphorus Magnesium AST Alkaline Phosphatase C-Reactive Protein Total Protein Albumin Lipase Vitamin B12 TSH Urine WBC (Auto) Urine Chloride Urine Total Protein Vancomycin Trough Crossmatch 10/13/16 10/13/16 10/13/16 10:44 11:22 12:20 WBC RBC Hgb Hct MCV RDW Plt Count Lymph % (Auto) [place] % (Auto) [place] # Seg Neutrophils % Seg Neuts % (Manual) Lymphocytes % (Manual) Monocytes % (Manual) Basophils % (Manual) Nucleated RBC % Seg Neutrophils # Seg Neutrophils # Man Lymphocytes # (Manual) Monocytes # (Manual) Eosinophils # (Manual) Basophils # (Manual) PT INR APTT Heparin Anti-Xa Level POC ABG pH POC ABG pCO2 POC ABG pO2 Sodium Potassium 5.4 H Chloride Carbon Dioxide 14 L BUN 72 H Creatinine 2.6 H Glucose 383 H POC Glucose 391 H 313 H Calcium 8.2 L Phosphorus Magnesium AST Alkaline Phosphatase C-Reactive Protein Total Protein Albumin Lipase Vitamin B12 TSH Urine WBC (Auto) Urine Chloride Urine Total Protein Vancomycin Trough Crossmatch 10/13/16 10/13/16 10/13/16 13:32 14:44 15:57 WBC RBC Hgb Hct MCV RDW Plt Count Lymph % (Auto) [place] % (Auto) [place] # Seg Neutrophils % Seg Neuts % (Manual) Lymphocytes % (Manual) Monocytes % (Manual) Basophils % (Manual) Nucleated RBC % Seg Neutrophils # Seg Neutrophils # Man Lymphocytes # (Manual) Monocytes # (Manual) Eosinophils # (Manual) Basophils # (Manual) PT INR APTT Heparin Anti-Xa Level POC ABG pH POC ABG pCO2 POC ABG pO2 Sodium Potassium Chloride Carbon Dioxide BUN Creatinine Glucose POC Glucose 296 H 210 H 190 H Calcium Phosphorus Magnesium AST Alkaline Phosphatase C-Reactive Protein Total Protein Albumin Lipase Vitamin B12 TSH Urine WBC (Auto) Urine Chloride Urine Total Protein Vancomycin Trough Crossmatch 10/13/16 10/13/16 10/13/16 16:14 16:14 17:17 WBC RBC Hgb Hct MCV RDW Plt Count Lymph % (Auto) [place] % (Auto) [place] # Seg Neutrophils % Seg Neuts % (Manual) Lymphocytes % (Manual) Monocytes % (Manual) Basophils % (Manual) Nucleated RBC % Seg Neutrophils # Seg Neutrophils # Man Lymphocytes # (Manual) Monocytes # (Manual) Eosinophils # (Manual) Basophils # (Manual) PT INR APTT Heparin Anti-Xa Level POC ABG pH POC ABG pCO2 POC ABG pO2 Sodium Potassium Chloride Carbon Dioxide 17 L BUN 58 H Creatinine 1.8 H Glucose 172 H POC Glucose 193 H Calcium 7.7 L Phosphorus Magnesium AST Alkaline Phosphatase C-Reactive Protein 10.50 H Total Protein Albumin Lipase Vitamin B12 TSH Urine WBC (Auto) Urine Chloride Urine Total Protein Vancomycin Trough Crossmatch 10/13/16 10/13/16 10/13/16 17:55 18:32 19:41 WBC RBC Hgb Hct MCV RDW Plt Count Lymph % (Auto) [place] % (Auto) [place] # Seg Neutrophils % Seg Neuts % (Manual) Lymphocytes % (Manual) Monocytes % (Manual) Basophils % (Manual) Nucleated RBC % Seg Neutrophils # Seg Neutrophils # Man Lymphocytes # (Manual) Monocytes # (Manual) Eosinophils # (Manual) Basophils # (Manual) PT INR APTT Heparin Anti-Xa Level POC ABG pH POC ABG pCO2 30.6 L POC ABG pO2 218 H Sodium Potassium Chloride Carbon Dioxide BUN Creatinine Glucose POC Glucose 192 H 177 H Calcium Phosphorus Magnesium AST Alkaline Phosphatase C-Reactive Protein Total Protein Albumin Lipase Vitamin B12 TSH Urine WBC (Auto) Urine Chloride Urine Total Protein Vancomycin Trough Crossmatch 10/13/16 10/13/16 10/13/16 20:54 22:07 23:13 WBC RBC Hgb Hct MCV RDW Plt Count Lymph % (Auto) [place] % (Auto) [place] # Seg Neutrophils % Seg Neuts % (Manual) Lymphocytes % (Manual) Monocytes % (Manual) Basophils % (Manual) Nucleated RBC % Seg Neutrophils # Seg Neutrophils # Man Lymphocytes # (Manual) Monocytes # (Manual) Eosinophils # (Manual) Basophils # (Manual) PT INR APTT Heparin Anti-Xa Level POC ABG pH POC ABG pCO2 POC ABG pO2 Sodium Potassium Chloride Carbon Dioxide BUN Creatinine Glucose POC Glucose 178 H 160 H 168 H Calcium Phosphorus Magnesium AST Alkaline Phosphatase C-Reactive Protein Total Protein Albumin Lipase Vitamin B12 TSH Urine WBC (Auto) Urine Chloride Urine Total Protein Vancomycin Trough Crossmatch 10/13/16 10/13/16 10/14/16 23:25 Unknown 00:21 WBC RBC Hgb Hct MCV RDW Plt Count Lymph % (Auto) [place] % (Auto) [place] # Seg Neutrophils % Seg Neuts % (Manual) Lymphocytes % (Manual) Monocytes % (Manual) Basophils % (Manual) Nucleated RBC % Seg Neutrophils # Seg Neutrophils # Man Lymphocytes # (Manual) Monocytes # (Manual) Eosinophils # (Manual) Basophils # (Manual) PT INR APTT Heparin Anti-Xa Level POC ABG pH POC ABG pCO2 POC ABG pO2 Sodium 148 H Potassium Chloride 114.6 H Carbon Dioxide 17 L BUN 56 H Creatinine 1.6 H Glucose 151 H POC Glucose 171 H Calcium 7.8 L Phosphorus Magnesium AST Alkaline Phosphatase C-Reactive Protein Total Protein Albumin Lipase Vitamin B12 TSH Urine WBC (Auto) Urine Chloride 10.0 L Urine Total Protein < 4 L Vancomycin Trough Crossmatch 10/14/16 10/14/16 10/14/16 01:22 02:29 03:30 WBC RBC Hgb Hct MCV RDW Plt Count Lymph % (Auto) [place] % (Auto) [place] # Seg Neutrophils % Seg Neuts % (Manual) Lymphocytes % (Manual) Monocytes % (Manual) Basophils % (Manual) Nucleated RBC % Seg Neutrophils # Seg Neutrophils # Man Lymphocytes # (Manual) Monocytes # (Manual) Eosinophils # (Manual) Basophils # (Manual) PT INR APTT Heparin Anti-Xa Level POC ABG pH POC ABG pCO2 POC ABG pO2 Sodium Potassium Chloride Carbon Dioxide BUN Creatinine Glucose POC Glucose 144 H 136 H 143 H Calcium Phosphorus Magnesium AST Alkaline Phosphatase C-Reactive Protein Total Protein Albumin Lipase Vitamin B12 TSH Urine WBC (Auto) Urine Chloride Urine Total Protein Vancomycin Trough Crossmatch 10/14/16 10/14/16 10/14/16 04:28 05:16 05:44 WBC RBC Hgb Hct MCV RDW Plt Count Lymph % (Auto) [place] % (Auto) [place] # Seg Neutrophils % Seg Neuts % (Manual) Lymphocytes % (Manual) Monocytes % (Manual) Basophils % (Manual) Nucleated RBC % Seg Neutrophils # Seg Neutrophils # Man Lymphocytes # (Manual) Monocytes # (Manual) Eosinophils # (Manual) Basophils # (Manual) PT INR APTT Heparin Anti-Xa Level POC ABG pH POC ABG pCO2 28.2 L POC ABG pO2 125 H Sodium Potassium Chloride Carbon Dioxide BUN Creatinine Glucose POC Glucose 133 H 160 H Calcium Phosphorus Magnesium AST Alkaline Phosphatase C-Reactive Protein Total Protein Albumin Lipase Vitamin B12 TSH Urine WBC (Auto) Urine Chloride Urine Total Protein Vancomycin Trough Crossmatch 10/14/16 10/14/16 10/14/16 06:12 06:45 07:03 WBC RBC Hgb Hct MCV RDW Plt Count Lymph % (Auto) [place] % (Auto) [place] # Seg Neutrophils % Seg Neuts % (Manual) Lymphocytes % (Manual) Monocytes % (Manual) Basophils % (Manual) Nucleated RBC % Seg Neutrophils # Seg Neutrophils # Man Lymphocytes # (Manual) Monocytes # (Manual) Eosinophils # (Manual) Basophils # (Manual) PT INR APTT Heparin Anti-Xa Level POC ABG pH POC ABG pCO2 POC ABG pO2 Sodium 149 H Potassium Chloride 115.4 H Carbon Dioxide 17 L BUN 45 H Creatinine 1.5 H Glucose 139 H POC Glucose 149 H Calcium 7.4 L Phosphorus 1.0 L D Magnesium AST Alkaline Phosphatase C-Reactive Protein Total Protein Albumin Lipase Vitamin B12 TSH Urine WBC (Auto) Urine Chloride Urine Total Protein Vancomycin Trough Crossmatch 10/14/16 10/14/16 10/14/16 07:03 08:02 09:16 WBC RBC Hgb Hct MCV RDW Plt Count Lymph % (Auto) [place] % (Auto) [place] # Seg Neutrophils % Seg Neuts % (Manual) Lymphocytes % (Manual) Monocytes % (Manual) Basophils % (Manual) Nucleated RBC % Seg Neutrophils # Seg Neutrophils # Man Lymphocytes # (Manual) Monocytes # (Manual) Eosinophils # (Manual) Basophils # (Manual) PT INR APTT Heparin Anti-Xa Level POC ABG pH POC ABG pCO2 POC ABG pO2 Sodium Potassium Chloride Carbon Dioxide BUN Creatinine Glucose POC Glucose 156 H 158 H Calcium Phosphorus Magnesium AST Alkaline Phosphatase C-Reactive Protein Total Protein Albumin Lipase 738 H Vitamin B12 TSH Urine WBC (Auto) Urine Chloride Urine Total Protein Vancomycin Trough Crossmatch 10/14/16 10/14/16 10/14/16 10:26 11:03 11:57 WBC RBC Hgb Hct MCV RDW Plt Count Lymph % (Auto) [place] % (Auto) [place] # Seg Neutrophils % Seg Neuts % (Manual) Lymphocytes % (Manual) Monocytes % (Manual) Basophils % (Manual) Nucleated RBC % Seg Neutrophils # Seg Neutrophils # Man Lymphocytes # (Manual) Monocytes # (Manual) Eosinophils # (Manual) Basophils # (Manual) PT INR APTT Heparin Anti-Xa Level POC ABG pH 7.198 L POC ABG pCO2 47.5 H POC ABG pO2 Sodium Potassium Chloride Carbon Dioxide BUN Creatinine Glucose POC Glucose 174 H 189 H Calcium Phosphorus Magnesium AST Alkaline Phosphatase C-Reactive Protein Total Protein Albumin Lipase Vitamin B12 TSH Urine WBC (Auto) Urine Chloride Urine Total Protein Vancomycin Trough Crossmatch 10/14/16 10/14/16 10/14/16 12:02 12:02 13:11 WBC 13.4 H RBC 3.60 L Hgb Hct MCV 98 H D RDW 13.1 L Plt Count Lymph % (Auto) [place] % (Auto) [place] # Seg Neutrophils % Seg Neuts % (Manual) Lymphocytes % (Manual) Monocytes % (Manual) Basophils % (Manual) Nucleated RBC % Seg Neutrophils # Seg Neutrophils # Man Lymphocytes # (Manual) Monocytes # (Manual) Eosinophils # (Manual) Basophils # (Manual) PT INR APTT Heparin Anti-Xa Level POC ABG pH POC ABG pCO2 POC ABG pO2 Sodium Potassium Chloride 110.7 H Carbon Dioxide 19 L BUN 38 H Creatinine 1.4 H Glucose 182 H POC Glucose 173 H Calcium 7.5 L Phosphorus Magnesium AST Alkaline Phosphatase C-Reactive Protein Total Protein Albumin Lipase Vitamin B12 TSH Urine WBC (Auto) Urine Chloride Urine Total Protein Vancomycin Trough Crossmatch 10/14/16 10/14/16 10/14/16 14:24 15:31 16:36 WBC RBC Hgb Hct MCV RDW Plt Count Lymph % (Auto) [place] % (Auto) [place] # Seg Neutrophils % Seg Neuts % (Manual) Lymphocytes % (Manual) Monocytes % (Manual) Basophils % (Manual) Nucleated RBC % Seg Neutrophils # Seg Neutrophils # Man Lymphocytes # (Manual) Monocytes # (Manual) Eosinophils # (Manual) Basophils # (Manual) PT INR APTT Heparin Anti-Xa Level POC ABG pH POC ABG pCO2 POC ABG pO2 Sodium Potassium Chloride Carbon Dioxide BUN Creatinine Glucose POC Glucose 123 H 124 H 156 H Calcium Phosphorus Magnesium AST Alkaline Phosphatase C-Reactive Protein Total Protein Albumin Lipase Vitamin B12 TSH Urine WBC (Auto) Urine Chloride Urine Total Protein Vancomycin Trough Crossmatch 10/14/16 10/14/16 10/14/16 17:43 19:00 20:08 WBC RBC Hgb Hct MCV RDW Plt Count Lymph % (Auto) [place] % (Auto) [place] # Seg Neutrophils % Seg Neuts % (Manual) Lymphocytes % (Manual) Monocytes % (Manual) Basophils % (Manual) Nucleated RBC % Seg Neutrophils # Seg Neutrophils # Man Lymphocytes # (Manual) Monocytes # (Manual) Eosinophils # (Manual) Basophils # (Manual) PT INR APTT Heparin Anti-Xa Level POC ABG pH POC ABG pCO2 POC ABG pO2 Sodium Potassium Chloride Carbon Dioxide BUN Creatinine Glucose POC Glucose 154 H 123 H 138 H Calcium Phosphorus Magnesium AST Alkaline Phosphatase C-Reactive Protein Total Protein Albumin Lipase Vitamin B12 TSH Urine WBC (Auto) Urine Chloride Urine Total Protein Vancomycin Trough Crossmatch 10/14/16 10/14/16 10/14/16 21:17 22:25 23:37 WBC RBC Hgb Hct MCV RDW Plt Count Lymph % (Auto) [place] % (Auto) [place] # Seg Neutrophils % Seg Neuts % (Manual) Lymphocytes % (Manual) Monocytes % (Manual) Basophils % (Manual) Nucleated RBC % Seg Neutrophils # Seg Neutrophils # Man Lymphocytes # (Manual) Monocytes # (Manual) Eosinophils # (Manual) Basophils # (Manual) PT INR APTT Heparin Anti-Xa Level POC ABG pH POC ABG pCO2 POC ABG pO2 Sodium Potassium Chloride Carbon Dioxide BUN Creatinine Glucose POC Glucose 148 H 132 H 137 H Calcium Phosphorus Magnesium AST Alkaline Phosphatase C-Reactive Protein Total Protein Albumin Lipase Vitamin B12 TSH Urine WBC (Auto) Urine Chloride Urine Total Protein Vancomycin Trough Crossmatch 10/15/16 10/15/16 10/15/16 00:49 01:53 03:06 WBC RBC Hgb Hct MCV RDW Plt Count Lymph % (Auto) [place] % (Auto) [place] # Seg Neutrophils % Seg Neuts % (Manual) Lymphocytes % (Manual) Monocytes % (Manual) Basophils % (Manual) Nucleated RBC % Seg Neutrophils # Seg Neutrophils # Man Lymphocytes # (Manual) Monocytes # (Manual) Eosinophils # (Manual) Basophils # (Manual) PT INR APTT Heparin Anti-Xa Level POC ABG pH POC ABG pCO2 POC ABG pO2 Sodium Potassium Chloride Carbon Dioxide BUN Creatinine Glucose POC Glucose 132 H 134 H 134 H Calcium Phosphorus Magnesium AST Alkaline Phosphatase C-Reactive Protein Total Protein Albumin Lipase Vitamin B12 TSH Urine WBC (Auto) Urine Chloride Urine Total Protein Vancomycin Trough Crossmatch 10/15/16 10/15/16 10/15/16 04:40 04:46 06:21 WBC RBC Hgb Hct MCV RDW Plt Count Lymph % (Auto) [place] % (Auto) [place] # Seg Neutrophils % Seg Neuts % (Manual) Lymphocytes % (Manual) Monocytes % (Manual) Basophils % (Manual) Nucleated RBC % Seg Neutrophils # Seg Neutrophils # Man Lymphocytes # (Manual) Monocytes # (Manual) Eosinophils # (Manual) Basophils # (Manual) PT INR APTT Heparin Anti-Xa Level POC ABG pH POC ABG pCO2 30.7 L POC ABG pO2 108 H Sodium Potassium Chloride 109.0 H Carbon Dioxide 17 L BUN 27 H Creatinine Glucose 124 H POC Glucose 160 H Calcium 7.5 L Phosphorus Magnesium AST 79 H Alkaline Phosphatase C-Reactive Protein Total Protein 5.5 L Albumin 3.0 L Lipase Vitamin B12 TSH Urine WBC (Auto) Urine Chloride Urine Total Protein Vancomycin Trough Crossmatch 10/15/16 10/15/16 10/15/16 07:12 08:01 09:03 WBC RBC Hgb Hct MCV RDW Plt Count Lymph % (Auto) [place] % (Auto) [place] # Seg Neutrophils % Seg Neuts % (Manual) Lymphocytes % (Manual) Monocytes % (Manual) Basophils % (Manual) Nucleated RBC % Seg Neutrophils # Seg Neutrophils # Man Lymphocytes # (Manual) Monocytes # (Manual) Eosinophils # (Manual) Basophils # (Manual) PT INR APTT Heparin Anti-Xa Level POC ABG pH POC ABG pCO2 POC ABG pO2 Sodium Potassium Chloride Carbon Dioxide BUN Creatinine Glucose POC Glucose 179 H 187 H 165 H Calcium Phosphorus Magnesium AST Alkaline Phosphatase C-Reactive Protein Total Protein Albumin Lipase Vitamin B12 TSH Urine WBC (Auto) Urine Chloride Urine Total Protein Vancomycin Trough Crossmatch 10/15/16 10/15/16 10/15/16 10:06 10:06 10:07 WBC 12.1 H RBC 3.01 L Hgb 9.7 L Hct 29.6 L MCV 98 H RDW Plt Count 129 L Lymph % (Auto) [place] % (Auto) [place] # Seg Neutrophils % Seg Neuts % (Manual) Lymphocytes % (Manual) Monocytes % (Manual) Basophils % (Manual) Nucleated RBC % Seg Neutrophils # Seg Neutrophils # Man Lymphocytes # (Manual) Monocytes # (Manual) Eosinophils # (Manual) Basophils # (Manual) PT INR APTT Heparin Anti-Xa Level POC ABG pH POC ABG pCO2 POC ABG pO2 Sodium Potassium 3.2 L D Chloride 109.6 H Carbon Dioxide 18 L BUN 22 H Creatinine Glucose 127 H POC Glucose 147 H Calcium 7.0 L Phosphorus Magnesium AST Alkaline Phosphatase C-Reactive Protein Total Protein Albumin Lipase Vitamin B12 TSH Urine WBC (Auto) Urine Chloride Urine Total Protein Vancomycin Trough Crossmatch 10/15/16 10/15/16 10/15/16 11:05 11:06 11:57 WBC RBC Hgb Hct MCV RDW Plt Count Lymph % (Auto) [place] % (Auto) [place] # Seg Neutrophils % Seg Neuts % (Manual) Lymphocytes % (Manual) Monocytes % (Manual) Basophils % (Manual) Nucleated RBC % Seg Neutrophils # Seg Neutrophils # Man Lymphocytes # (Manual) Monocytes # (Manual) Eosinophils # (Manual) Basophils # (Manual) PT INR APTT Heparin Anti-Xa Level POC ABG pH 7.305 L POC ABG pCO2 POC ABG pO2 Sodium Potassium Chloride Carbon Dioxide BUN Creatinine Glucose POC Glucose 145 H Calcium Phosphorus Magnesium AST Alkaline Phosphatase C-Reactive Protein Total Protein Albumin Lipase Vitamin B12 TSH Urine WBC (Auto) 7.0 H Urine Chloride Urine Total Protein Vancomycin Trough Crossmatch 10/15/16 10/15/16 10/15/16 12:04 13:59 15:24 WBC RBC Hgb Hct MCV RDW Plt Count Lymph % (Auto) [place] % (Auto) [place] # Seg Neutrophils % Seg Neuts % (Manual) Lymphocytes % (Manual) Monocytes % (Manual) Basophils % (Manual) Nucleated RBC % Seg Neutrophils # Seg Neutrophils # Man Lymphocytes # (Manual) Monocytes # (Manual) Eosinophils # (Manual) Basophils # (Manual) PT INR APTT Heparin Anti-Xa Level POC ABG pH POC ABG pCO2 POC ABG pO2 Sodium Potassium Chloride Carbon Dioxide BUN Creatinine Glucose POC Glucose 123 H 147 H 153 H Calcium Phosphorus Magnesium AST Alkaline Phosphatase C-Reactive Protein Total Protein Albumin Lipase Vitamin B12 TSH Urine WBC (Auto) Urine Chloride Urine Total Protein Vancomycin Trough Crossmatch 10/15/16 10/15/16 10/15/16 16:30 17:34 18:30 WBC RBC Hgb Hct MCV RDW Plt Count Lymph % (Auto) [place] % (Auto) [place] # Seg Neutrophils % Seg Neuts % (Manual) Lymphocytes % (Manual) Monocytes % (Manual) Basophils % (Manual) Nucleated RBC % Seg Neutrophils # Seg Neutrophils # Man Lymphocytes # (Manual) Monocytes # (Manual) Eosinophils # (Manual) Basophils # (Manual) PT INR APTT Heparin Anti-Xa Level POC ABG pH POC ABG pCO2 POC ABG pO2 Sodium Potassium Chloride Carbon Dioxide BUN Creatinine Glucose POC Glucose 223 H 236 H 164 H Calcium Phosphorus Magnesium AST Alkaline Phosphatase C-Reactive Protein Total Protein Albumin Lipase Vitamin B12 TSH Urine WBC (Auto) Urine Chloride Urine Total Protein Vancomycin Trough Crossmatch 10/15/16 10/15/16 10/15/16 19:14 20:31 21:23 WBC RBC Hgb Hct MCV RDW Plt Count Lymph % (Auto) [place] % (Auto) [place] # Seg Neutrophils % Seg Neuts % (Manual) Lymphocytes % (Manual) Monocytes % (Manual) Basophils % (Manual) Nucleated RBC % Seg Neutrophils # Seg Neutrophils # Man Lymphocytes # (Manual) Monocytes # (Manual) Eosinophils # (Manual) Basophils # (Manual) PT INR APTT Heparin Anti-Xa Level POC ABG pH POC ABG pCO2 POC ABG pO2 Sodium Potassium Chloride Carbon Dioxide BUN Creatinine Glucose POC Glucose 138 H 158 H 158 H Calcium Phosphorus Magnesium AST Alkaline Phosphatase C-Reactive Protein Total Protein Albumin Lipase Vitamin B12 TSH Urine WBC (Auto) Urine Chloride Urine Total Protein Vancomycin Trough Crossmatch 10/15/16 10/15/16 10/16/16 22:04 22:57 00:11 WBC RBC Hgb Hct MCV RDW Plt Count Lymph % (Auto) [place] % (Auto) [place] # Seg Neutrophils % Seg Neuts % (Manual) Lymphocytes % (Manual) Monocytes % (Manual) Basophils % (Manual) Nucleated RBC % Seg Neutrophils # Seg Neutrophils # Man Lymphocytes # (Manual) Monocytes # (Manual) Eosinophils # (Manual) Basophils # (Manual) PT INR APTT Heparin Anti-Xa Level POC ABG pH POC ABG pCO2 POC ABG pO2 Sodium Potassium Chloride Carbon Dioxide BUN Creatinine Glucose POC Glucose 168 H 213 H 166 H Calcium Phosphorus Magnesium AST Alkaline Phosphatase C-Reactive Protein Total Protein Albumin Lipase Vitamin B12 TSH Urine WBC (Auto) Urine Chloride Urine Total Protein Vancomycin Trough Crossmatch 10/16/16 10/16/16 10/16/16 01:16 02:32 03:38 WBC RBC Hgb Hct MCV RDW Plt Count Lymph % (Auto) [place] % (Auto) [place] # Seg Neutrophils % Seg Neuts % (Manual) Lymphocytes % (Manual) Monocytes % (Manual) Basophils % (Manual) Nucleated RBC % Seg Neutrophils # Seg Neutrophils # Man Lymphocytes # (Manual) Monocytes # (Manual) Eosinophils # (Manual) Basophils # (Manual) PT INR APTT Heparin Anti-Xa Level POC ABG pH POC ABG pCO2 POC ABG pO2 Sodium Potassium Chloride Carbon Dioxide BUN Creatinine Glucose POC Glucose 171 H 164 H 147 H Calcium Phosphorus Magnesium AST Alkaline Phosphatase C-Reactive Protein Total Protein Albumin Lipase Vitamin B12 TSH Urine WBC (Auto) Urine Chloride Urine Total Protein Vancomycin Trough Crossmatch 10/16/16 10/16/16 10/16/16 04:14 04:14 04:49 WBC RBC Hgb Hct MCV RDW Plt Count Lymph % (Auto) [place] % (Auto) [place] # Seg Neutrophils % Seg Neuts % (Manual) Lymphocytes % (Manual) Monocytes % (Manual) Basophils % (Manual) Nucleated RBC % Seg Neutrophils # Seg Neutrophils # Man Lymphocytes # (Manual) Monocytes # (Manual) Eosinophils # (Manual) Basophils # (Manual) PT INR APTT Heparin Anti-Xa Level POC ABG pH POC ABG pCO2 POC ABG pO2 Sodium 147 H Potassium Chloride 110.9 H Carbon Dioxide 19 L BUN Creatinine Glucose 139 H POC Glucose 144 H Calcium 7.3 L Phosphorus 2.3 L Magnesium AST Alkaline Phosphatase C-Reactive Protein Total Protein Albumin Lipase 143 H Vitamin B12 TSH Urine WBC (Auto) Urine Chloride Urine Total Protein Vancomycin Trough Crossmatch 10/16/16 10/16/16 10/16/16 05:03 05:41 05:58 WBC 16.5 H RBC 3.36 L Hgb Hct MCV 98 H RDW 13.1 L Plt Count Lymph % (Auto) 8.5 L [place] % (Auto) 7.6 H [place] # 1.3 H Seg Neutrophils % 83.3 H Seg Neuts % (Manual) Lymphocytes % (Manual) Monocytes % (Manual) Basophils % (Manual) Nucleated RBC % Seg Neutrophils # 13.8 H Seg Neutrophils # Man Lymphocytes # (Manual) Monocytes # (Manual) Eosinophils # (Manual) Basophils # (Manual) PT INR APTT Heparin Anti-Xa Level POC ABG pH POC ABG pCO2 30.7 L POC ABG pO2 128 H Sodium Potassium Chloride Carbon Dioxide BUN Creatinine Glucose POC Glucose 131 H Calcium Phosphorus Magnesium AST Alkaline Phosphatase C-Reactive Protein Total Protein Albumin Lipase Vitamin B12 TSH Urine WBC (Auto) Urine Chloride Urine Total Protein Vancomycin Trough Crossmatch 10/16/16 10/16/16 10/16/16 06:32 09:27 09:35 WBC RBC Hgb Hct MCV RDW Plt Count Lymph % (Auto) [place] % (Auto) [place] # Seg Neutrophils % Seg Neuts % (Manual) Lymphocytes % (Manual) Monocytes % (Manual) Basophils % (Manual) Nucleated RBC % Seg Neutrophils # Seg Neutrophils # Man Lymphocytes # (Manual) Monocytes # (Manual) Eosinophils # (Manual) Basophils # (Manual) PT INR APTT Heparin Anti-Xa Level POC ABG pH POC ABG pCO2 32.8 L POC ABG pO2 137 H Sodium Potassium Chloride Carbon Dioxide BUN Creatinine Glucose POC Glucose 121 H 150 H Calcium Phosphorus Magnesium AST Alkaline Phosphatase C-Reactive Protein Total Protein Albumin Lipase Vitamin B12 TSH Urine WBC (Auto) Urine Chloride Urine Total Protein Vancomycin Trough Crossmatch 10/16/16 10/16/16 10/16/16 10:47 13:27 14:24 WBC RBC Hgb Hct MCV RDW Plt Count Lymph % (Auto) [place] % (Auto) [place] # Seg Neutrophils % Seg Neuts % (Manual) Lymphocytes % (Manual) Monocytes % (Manual) Basophils % (Manual) Nucleated RBC % Seg Neutrophils # Seg Neutrophils # Man Lymphocytes # (Manual) Monocytes # (Manual) Eosinophils # (Manual) Basophils # (Manual) PT INR APTT Heparin Anti-Xa Level POC ABG pH POC ABG pCO2 POC ABG pO2 Sodium Potassium Chloride Carbon Dioxide BUN Creatinine Glucose POC Glucose 184 H 171 H 174 H Calcium Phosphorus Magnesium AST Alkaline Phosphatase C-Reactive Protein Total Protein Albumin Lipase Vitamin B12 TSH Urine WBC (Auto) Urine Chloride Urine Total Protein Vancomycin Trough Crossmatch 10/16/16 10/16/16 10/16/16 15:48 16:26 18:17 WBC RBC Hgb Hct MCV RDW Plt Count Lymph % (Auto) [place] % (Auto) [place] # Seg Neutrophils % Seg Neuts % (Manual) Lymphocytes % (Manual) Monocytes % (Manual) Basophils % (Manual) Nucleated RBC % Seg Neutrophils # Seg Neutrophils # Man Lymphocytes # (Manual) Monocytes # (Manual) Eosinophils # (Manual) Basophils # (Manual) PT INR APTT Heparin Anti-Xa Level POC ABG pH POC ABG pCO2 POC ABG pO2 Sodium Potassium Chloride Carbon Dioxide BUN Creatinine Glucose POC Glucose 205 H 204 H 234 H Calcium Phosphorus Magnesium AST Alkaline Phosphatase C-Reactive Protein Total Protein Albumin Lipase Vitamin B12 TSH Urine WBC (Auto) Urine Chloride Urine Total Protein Vancomycin Trough Crossmatch 10/16/16 10/16/16 10/16/16 19:40 20:33 21:36 WBC RBC Hgb Hct MCV RDW Plt Count Lymph % (Auto) [place] % (Auto) [place] # Seg Neutrophils % Seg Neuts % (Manual) Lymphocytes % (Manual) Monocytes % (Manual) Basophils % (Manual) Nucleated RBC % Seg Neutrophils # Seg Neutrophils # Man Lymphocytes # (Manual) Monocytes # (Manual) Eosinophils # (Manual) Basophils # (Manual) PT INR APTT Heparin Anti-Xa Level POC ABG pH POC ABG pCO2 POC ABG pO2 Sodium Potassium Chloride Carbon Dioxide BUN Creatinine Glucose POC Glucose 167 H 153 H 158 H Calcium Phosphorus Magnesium AST Alkaline Phosphatase C-Reactive Protein Total Protein Albumin Lipase Vitamin B12 TSH Urine WBC (Auto) Urine Chloride Urine Total Protein Vancomycin Trough Crossmatch 10/16/16 10/16/16 10/17/16 22:54 23:48 00:47 WBC RBC Hgb Hct MCV RDW Plt Count Lymph % (Auto) [place] % (Auto) [place] # Seg Neutrophils % Seg Neuts % (Manual) Lymphocytes % (Manual) Monocytes % (Manual) Basophils % (Manual) Nucleated RBC % Seg Neutrophils # Seg Neutrophils # Man Lymphocytes # (Manual) Monocytes # (Manual) Eosinophils # (Manual) Basophils # (Manual) PT INR APTT Heparin Anti-Xa Level POC ABG pH POC ABG pCO2 POC ABG pO2 Sodium Potassium Chloride Carbon Dioxide BUN Creatinine Glucose POC Glucose 180 H 207 H 196 H Calcium Phosphorus Magnesium AST Alkaline Phosphatase C-Reactive Protein Total Protein Albumin Lipase Vitamin B12 TSH Urine WBC (Auto) Urine Chloride Urine Total Protein Vancomycin Trough Crossmatch 10/17/16 10/17/16 10/17/16 01:57 02:49 03:50 WBC RBC Hgb Hct MCV RDW Plt Count Lymph % (Auto) [place] % (Auto) [place] # Seg Neutrophils % Seg Neuts % (Manual) Lymphocytes % (Manual) Monocytes % (Manual) Basophils % (Manual) Nucleated RBC % Seg Neutrophils # Seg Neutrophils # Man Lymphocytes # (Manual) Monocytes # (Manual) Eosinophils # (Manual) Basophils # (Manual) PT INR APTT Heparin Anti-Xa Level POC ABG pH POC ABG pCO2 POC ABG pO2 Sodium Potassium Chloride Carbon Dioxide BUN Creatinine Glucose POC Glucose 180 H 151 H 106 H Calcium Phosphorus Magnesium AST Alkaline Phosphatase C-Reactive Protein Total Protein Albumin Lipase Vitamin B12 TSH Urine WBC (Auto) Urine Chloride Urine Total Protein Vancomycin Trough Crossmatch 10/17/16 10/17/16 10/17/16 04:59 06:03 06:35 WBC RBC Hgb Hct MCV RDW Plt Count Lymph % (Auto) [place] % (Auto) [place] # Seg Neutrophils % Seg Neuts % (Manual) Lymphocytes % (Manual) Monocytes % (Manual) Basophils % (Manual) Nucleated RBC % Seg Neutrophils # Seg Neutrophils # Man Lymphocytes # (Manual) Monocytes # (Manual) Eosinophils # (Manual) Basophils # (Manual) PT INR APTT Heparin Anti-Xa Level POC ABG pH 7.453 H POC ABG pCO2 30.1 L POC ABG pO2 111 H Sodium Potassium Chloride Carbon Dioxide BUN Creatinine Glucose POC Glucose 145 H 157 H Calcium Phosphorus Magnesium AST Alkaline Phosphatase C-Reactive Protein Total Protein Albumin Lipase Vitamin B12 TSH Urine WBC (Auto) Urine Chloride Urine Total Protein Vancomycin Trough Crossmatch 10/17/16 10/17/16 10/17/16 07:08 07:11 08:01 WBC RBC Hgb Hct MCV RDW Plt Count Lymph % (Auto) [place] % (Auto) [place] # Seg Neutrophils % Seg Neuts % (Manual) Lymphocytes % (Manual) Monocytes % (Manual) Basophils % (Manual) Nucleated RBC % Seg Neutrophils # Seg Neutrophils # Man Lymphocytes # (Manual) Monocytes # (Manual) Eosinophils # (Manual) Basophils # (Manual) PT INR APTT Heparin Anti-Xa Level POC ABG pH POC ABG pCO2 POC ABG pO2 Sodium 147 H Potassium Chloride 113.8 H Carbon Dioxide 19 L BUN Creatinine Glucose 136 H POC Glucose 136 H 152 H Calcium 7.7 L Phosphorus Magnesium AST Alkaline Phosphatase C-Reactive Protein Total Protein Albumin Lipase Vitamin B12 TSH Urine WBC (Auto) Urine Chloride Urine Total Protein Vancomycin Trough Crossmatch 10/17/16 10/17/16 10/17/16 08:23 09:17 09:53 WBC 18.1 H RBC 3.01 L Hgb 9.7 L Hct 29.4 L MCV 98 H RDW Plt Count 116 L Lymph % (Auto) [place] % (Auto) [place] # Seg Neutrophils % Seg Neuts % (Manual) 77.0 H Lymphocytes % (Manual) 4.0 L Monocytes % (Manual) 12.0 H Basophils % (Manual) Nucleated RBC % Seg Neutrophils # Seg Neutrophils # Man 13.9 H Lymphocytes # (Manual) 0.7 L Monocytes # (Manual) 2.2 H Eosinophils # (Manual) Basophils # (Manual) PT INR APTT Heparin Anti-Xa Level POC ABG pH POC ABG pCO2 POC ABG pO2 Sodium Potassium Chloride Carbon Dioxide BUN Creatinine Glucose POC Glucose 148 H 137 H Calcium Phosphorus Magnesium AST Alkaline Phosphatase C-Reactive Protein Total Protein Albumin Lipase Vitamin B12 TSH Urine WBC (Auto) Urine Chloride Urine Total Protein Vancomycin Trough Crossmatch 10/17/16 10/17/16 10/17/16 11:43 16:07 17:42 WBC RBC Hgb Hct MCV RDW Plt Count Lymph % (Auto) [place] % (Auto) [place] # Seg Neutrophils % Seg Neuts % (Manual) Lymphocytes % (Manual) Monocytes % (Manual) Basophils % (Manual) Nucleated RBC % Seg Neutrophils # Seg Neutrophils # Man Lymphocytes # (Manual) Monocytes # (Manual) Eosinophils # (Manual) Basophils # (Manual) PT 16.4 H INR 1.33 H APTT 38.8 H Heparin Anti-Xa Level POC ABG pH POC ABG pCO2 POC ABG pO2 Sodium Potassium Chloride Carbon Dioxide BUN Creatinine Glucose POC Glucose 179 H 153 H Calcium Phosphorus Magnesium AST Alkaline Phosphatase C-Reactive Protein Total Protein Albumin Lipase Vitamin B12 TSH Urine WBC (Auto) Urine Chloride Urine Total Protein Vancomycin Trough Crossmatch 10/17/16 10/18/16 10/18/16 22:54 04:37 05:39 WBC RBC Hgb Hct MCV RDW Plt Count Lymph % (Auto) [place] % (Auto) [place] # Seg Neutrophils % Seg Neuts % (Manual) Lymphocytes % (Manual) Monocytes % (Manual) Basophils % (Manual) Nucleated RBC % Seg Neutrophils # Seg Neutrophils # Man Lymphocytes # (Manual) Monocytes # (Manual) Eosinophils # (Manual) Basophils # (Manual) PT INR APTT Heparin Anti-Xa Level 0.27 L POC ABG pH 7.454 H POC ABG pCO2 30.8 L POC ABG pO2 115 H Sodium Potassium Chloride Carbon Dioxide BUN Creatinine Glucose POC Glucose 69 L Calcium Phosphorus Magnesium AST Alkaline Phosphatase C-Reactive Protein Total Protein Albumin Lipase Vitamin B12 TSH Urine WBC (Auto) Urine Chloride Urine Total Protein Vancomycin Trough Crossmatch 10/18/16 10/18/16 10/18/16 06:46 06:46 06:46 WBC 20.5 H RBC 2.62 L Hgb 8.4 L Hct 26.0 L MCV 100 H RDW Plt Count Lymph % (Auto) [place] % (Auto) [place] # Seg Neutrophils % Seg Neuts % (Manual) 75.0 H Lymphocytes % (Manual) 9.0 L Monocytes % (Manual) 14.0 H Basophils % (Manual) Nucleated RBC % Seg Neutrophils # Seg Neutrophils # Man 15.4 H Lymphocytes # (Manual) Monocytes # (Manual) 2.9 H Eosinophils # (Manual) Basophils # (Manual) PT INR APTT Heparin Anti-Xa Level POC ABG pH POC ABG pCO2 POC ABG pO2 Sodium Potassium Chloride 110.6 H Carbon Dioxide BUN Creatinine 1.3 H Glucose 153 H POC Glucose Calcium 8.0 L Phosphorus Magnesium 1.6 L AST Alkaline Phosphatase C-Reactive Protein Total Protein Albumin Lipase Vitamin B12 TSH Urine WBC (Auto) Urine Chloride Urine Total Protein Vancomycin Trough Crossmatch 10/18/16 10/18/16 10/18/16 07:30 11:37 17:51 WBC RBC Hgb Hct MCV RDW Plt Count Lymph % (Auto) [place] % (Auto) [place] # Seg Neutrophils % Seg Neuts % (Manual) Lymphocytes % (Manual) Monocytes % (Manual) Basophils % (Manual) Nucleated RBC % Seg Neutrophils # Seg Neutrophils # Man Lymphocytes # (Manual) Monocytes # (Manual) Eosinophils # (Manual) Basophils # (Manual) PT INR APTT Heparin Anti-Xa Level POC ABG pH POC ABG pCO2 POC ABG pO2 Sodium Potassium Chloride Carbon Dioxide BUN Creatinine Glucose POC Glucose 162 H 156 H 164 H Calcium Phosphorus Magnesium AST Alkaline Phosphatase C-Reactive Protein Total Protein Albumin Lipase Vitamin B12 TSH Urine WBC (Auto) Urine Chloride Urine Total Protein Vancomycin Trough Crossmatch 10/18/16 10/19/16 10/19/16 23:44 03:59 05:13 WBC 18.2 H RBC 2.76 L Hgb 9.0 L Hct 27.7 L MCV 100 H RDW Plt Count Lymph % (Auto) [place] % (Auto) [place] # Seg Neutrophils % Seg Neuts % (Manual) 76.0 H Lymphocytes % (Manual) 10.0 L Monocytes % (Manual) Basophils % (Manual) Nucleated RBC % Seg Neutrophils # Seg Neutrophils # Man 13.8 H Lymphocytes # (Manual) Monocytes # (Manual) Eosinophils # (Manual) Basophils # (Manual) PT INR APTT Heparin Anti-Xa Level POC ABG pH POC ABG pCO2 32.2 L POC ABG pO2 128 H Sodium Potassium Chloride Carbon Dioxide BUN Creatinine Glucose POC Glucose 278 H Calcium Phosphorus Magnesium AST Alkaline Phosphatase C-Reactive Protein Total Protein Albumin Lipase Vitamin B12 TSH Urine WBC (Auto) Urine Chloride Urine Total Protein Vancomycin Trough Crossmatch 10/19/16 10/19/16 10/19/16 06:01 06:30 12:20 WBC RBC Hgb Hct MCV RDW Plt Count Lymph % (Auto) [place] % (Auto) [place] # Seg Neutrophils % Seg Neuts % (Manual) Lymphocytes % (Manual) Monocytes % (Manual) Basophils % (Manual) Nucleated RBC % Seg Neutrophils # Seg Neutrophils # Man Lymphocytes # (Manual) Monocytes # (Manual) Eosinophils # (Manual) Basophils # (Manual) PT INR APTT Heparin Anti-Xa Level POC ABG pH POC ABG pCO2 POC ABG pO2 Sodium Potassium Chloride Carbon Dioxide 18 L BUN Creatinine 1.3 H Glucose 262 H POC Glucose 261 H 349 H Calcium 7.7 L Phosphorus 4.8 H D Magnesium AST Alkaline Phosphatase C-Reactive Protein Total Protein Albumin Lipase Vitamin B12 TSH Urine WBC (Auto) Urine Chloride Urine Total Protein Vancomycin Trough Crossmatch 10/19/16 10/20/16 10/20/16 16:48 00:17 05:20 WBC 22.5 H RBC 2.80 L Hgb 8.9 L Hct 28.3 L MCV 101 H RDW Plt Count Lymph % (Auto) [place] % (Auto) [place] # Seg Neutrophils % Seg Neuts % (Manual) Lymphocytes % (Manual) 10.0 L Monocytes % (Manual) Basophils % (Manual) Nucleated RBC % Seg Neutrophils # Seg Neutrophils # Man 13.3 H Lymphocytes # (Manual) Monocytes # (Manual) 1.1 H Eosinophils # (Manual) 0.7 H Basophils # (Manual) PT INR APTT Heparin Anti-Xa Level POC ABG pH POC ABG pCO2 POC ABG pO2 Sodium Potassium Chloride Carbon Dioxide BUN Creatinine Glucose POC Glucose 248 H 346 H Calcium Phosphorus Magnesium AST Alkaline Phosphatase C-Reactive Protein Total Protein Albumin Lipase Vitamin B12 TSH Urine WBC (Auto) Urine Chloride Urine Total Protein Vancomycin Trough Crossmatch 10/20/16 10/20/16 10/20/16 05:20 05:20 06:05 WBC RBC Hgb Hct MCV RDW Plt Count Lymph % (Auto) [place] % (Auto) [place] # Seg Neutrophils % Seg Neuts % (Manual) Lymphocytes % (Manual) Monocytes % (Manual) Basophils % (Manual) Nucleated RBC % Seg Neutrophils # Seg Neutrophils # Man Lymphocytes # (Manual) Monocytes # (Manual) Eosinophils # (Manual) Basophils # (Manual) PT INR APTT Heparin Anti-Xa Level 0.20 L POC ABG pH POC ABG pCO2 POC ABG pO2 Sodium Potassium Chloride Carbon Dioxide BUN 20 H Creatinine Glucose 374 H POC Glucose 337 H Calcium 8.3 L Phosphorus Magnesium AST Alkaline Phosphatase C-Reactive Protein Total Protein Albumin Lipase Vitamin B12 TSH Urine WBC (Auto) Urine Chloride Urine Total Protein Vancomycin Trough Crossmatch 10/20/16 10/20/16 10/20/16 11:49 13:59 17:56 WBC RBC Hgb Hct MCV RDW Plt Count Lymph % (Auto) [place] % (Auto) [place] # Seg Neutrophils % Seg Neuts % (Manual) Lymphocytes % (Manual) Monocytes % (Manual) Basophils % (Manual) Nucleated RBC % Seg Neutrophils # Seg Neutrophils # Man Lymphocytes # (Manual) Monocytes # (Manual) Eosinophils # (Manual) Basophils # (Manual) PT INR APTT Heparin Anti-Xa Level 2.00 H POC ABG pH POC ABG pCO2 POC ABG pO2 Sodium Potassium Chloride Carbon Dioxide BUN Creatinine Glucose POC Glucose 305 H 362 H Calcium Phosphorus Magnesium AST Alkaline Phosphatase C-Reactive Protein Total Protein Albumin Lipase Vitamin B12 TSH Urine WBC (Auto) Urine Chloride Urine Total Protein Vancomycin Trough Crossmatch 10/20/16 10/21/16 10/21/16 23:52 05:00 05:49 WBC 22.9 H RBC 2.49 L Hgb 7.7 L Hct 25.6 L MCV 103 H RDW Plt Count Lymph % (Auto) [place] % (Auto) [place] # Seg Neutrophils % Seg Neuts % (Manual) 94.0 H Lymphocytes % (Manual) 1.0 L Monocytes % (Manual) Basophils % (Manual) Nucleated RBC % Seg Neutrophils # Seg Neutrophils # Man 21.5 H Lymphocytes # (Manual) 0.2 L Monocytes # (Manual) 1.1 H Eosinophils # (Manual) Basophils # (Manual) PT INR APTT Heparin Anti-Xa Level POC ABG pH POC ABG pCO2 POC ABG pO2 Sodium Potassium Chloride Carbon Dioxide BUN Creatinine Glucose POC Glucose 252 H 180 H Calcium Phosphorus Magnesium AST Alkaline Phosphatase C-Reactive Protein Total Protein Albumin Lipase Vitamin B12 TSH Urine WBC (Auto) Urine Chloride Urine Total Protein Vancomycin Trough Crossmatch 10/21/16 10/21/16 10/21/16 11:47 11:49 14:10 WBC RBC Hgb Hct MCV RDW Plt Count Lymph % (Auto) [place] % (Auto) [place] # Seg Neutrophils % Seg Neuts % (Manual) Lymphocytes % (Manual) Monocytes % (Manual) Basophils % (Manual) Nucleated RBC % Seg Neutrophils # Seg Neutrophils # Man Lymphocytes # (Manual) Monocytes # (Manual) Eosinophils # (Manual) Basophils # (Manual) PT INR APTT Heparin Anti-Xa Level POC ABG pH POC ABG pCO2 POC ABG pO2 Sodium Potassium Chloride Carbon Dioxide BUN Creatinine Glucose POC Glucose 50 L 56 L 140 H Calcium Phosphorus Magnesium AST Alkaline Phosphatase C-Reactive Protein Total Protein Albumin Lipase Vitamin B12 TSH Urine WBC (Auto) Urine Chloride Urine Total Protein Vancomycin Trough Crossmatch 10/21/16 10/21/16 10/22/16 18:24 Unknown 00:07 WBC RBC Hgb Hct MCV RDW Plt Count Lymph % (Auto) [place] % (Auto) [place] # Seg Neutrophils % Seg Neuts % (Manual) Lymphocytes % (Manual) Monocytes % (Manual) Basophils % (Manual) Nucleated RBC % Seg Neutrophils # Seg Neutrophils # Man Lymphocytes # (Manual) Monocytes # (Manual) Eosinophils # (Manual) Basophils # (Manual) PT INR APTT Heparin Anti-Xa Level POC ABG pH POC ABG pCO2 POC ABG pO2 Sodium 150 H Potassium 3.1 L Chloride 112.4 H Carbon Dioxide BUN 25 H Creatinine 1.4 H Glucose POC Glucose 175 H 218 H Calcium 8.0 L Phosphorus Magnesium AST Alkaline Phosphatase C-Reactive Protein Total Protein Albumin Lipase Vitamin B12 TSH Urine WBC (Auto) Urine Chloride Urine Total Protein Vancomycin Trough Crossmatch 10/22/16 10/22/16 10/22/16 04:20 04:20 10:25 WBC 20.8 H RBC 2.37 L Hgb 7.5 L Hct 23.9 L MCV 101 H RDW Plt Count Lymph % (Auto) [place] % (Auto) [place] # Seg Neutrophils % Seg Neuts % (Manual) 89.0 H Lymphocytes % (Manual) 7.0 L Monocytes % (Manual) Basophils % (Manual) Nucleated RBC % Seg Neutrophils # Seg Neutrophils # Man 18.5 H Lymphocytes # (Manual) Monocytes # (Manual) Eosinophils # (Manual) Basophils # (Manual) 0.2 H PT INR APTT Heparin Anti-Xa Level POC ABG pH POC ABG pCO2 POC ABG pO2 Sodium 148 H Potassium 2.9 L* Chloride 109.4 H Carbon Dioxide BUN 26 H Creatinine Glucose 140 H POC Glucose Calcium 7.5 L Phosphorus Magnesium AST Alkaline Phosphatase C-Reactive Protein Total Protein Albumin Lipase Vitamin B12 976.8 H TSH Urine WBC (Auto) Urine Chloride Urine Total Protein Vancomycin Trough Crossmatch 10/22/16 10/22/16 10/22/16 10:25 14:50 18:16 WBC RBC Hgb Hct MCV RDW Plt Count Lymph % (Auto) [place] % (Auto) [place] # Seg Neutrophils % Seg Neuts % (Manual) Lymphocytes % (Manual) Monocytes % (Manual) Basophils % (Manual) Nucleated RBC % Seg Neutrophils # Seg Neutrophils # Man Lymphocytes # (Manual) Monocytes # (Manual) Eosinophils # (Manual) Basophils # (Manual) PT INR APTT Heparin Anti-Xa Level POC ABG pH POC ABG pCO2 POC ABG pO2 Sodium Potassium Chloride Carbon Dioxide BUN Creatinine Glucose POC Glucose 193 H Calcium Phosphorus Magnesium AST Alkaline Phosphatase C-Reactive Protein Total Protein Albumin Lipase Vitamin B12 TSH 0.143 L 0.162 L Urine WBC (Auto) Urine Chloride Urine Total Protein Vancomycin Trough Crossmatch 10/22/16 10/22/16 10/22/16 20:00 20:00 20:00 WBC 24.1 H RBC 2.58 L Hgb 8.2 L Hct 26.4 L MCV 102 H RDW Plt Count Lymph % (Auto) [place] % (Auto) [place] # Seg Neutrophils % Seg Neuts % (Manual) 74.0 H Lymphocytes % (Manual) 7.0 L Monocytes % (Manual) Basophils % (Manual) Nucleated RBC % Seg Neutrophils # Seg Neutrophils # Man 17.8 H Lymphocytes # (Manual) Monocytes # (Manual) Eosinophils # (Manual) Basophils # (Manual) PT INR APTT Heparin Anti-Xa Level 1.92 H POC ABG pH POC ABG pCO2 POC ABG pO2 Sodium Potassium Chloride Carbon Dioxide BUN Creatinine Glucose POC Glucose Calcium Phosphorus Magnesium AST Alkaline Phosphatase C-Reactive Protein Total Protein Albumin Lipase Vitamin B12 TSH Urine WBC (Auto) Urine Chloride Urine Total Protein Vancomycin Trough Crossmatch See Detail 10/23/16 10/23/16 10/23/16 00:21 06:09 12:07 WBC RBC Hgb Hct MCV RDW Plt Count Lymph % (Auto) [place] % (Auto) [place] # Seg Neutrophils % Seg Neuts % (Manual) Lymphocytes % (Manual) Monocytes % (Manual) Basophils % (Manual) Nucleated RBC % Seg Neutrophils # Seg Neutrophils # Man Lymphocytes # (Manual) Monocytes # (Manual) Eosinophils # (Manual) Basophils # (Manual) PT INR APTT Heparin Anti-Xa Level POC ABG pH POC ABG pCO2 POC ABG pO2 Sodium Potassium Chloride Carbon Dioxide BUN Creatinine Glucose POC Glucose 283 H 241 H 340 H Calcium Phosphorus Magnesium AST Alkaline Phosphatase C-Reactive Protein Total Protein Albumin Lipase Vitamin B12 TSH Urine WBC (Auto) Urine Chloride Urine Total Protein Vancomycin Trough Crossmatch 10/23/16 10/23/16 10/23/16 14:01 16:00 17:59 WBC RBC Hgb Hct MCV RDW Plt Count Lymph % (Auto) [place] % (Auto) [place] # Seg Neutrophils % Seg Neuts % (Manual) Lymphocytes % (Manual) Monocytes % (Manual) Basophils % (Manual) Nucleated RBC % Seg Neutrophils # Seg Neutrophils # Man Lymphocytes # (Manual) Monocytes # (Manual) Eosinophils # (Manual) Basophils # (Manual) PT INR APTT Heparin Anti-Xa Level 0.19 L POC ABG pH POC ABG pCO2 32.4 L POC ABG pO2 Sodium Potassium Chloride Carbon Dioxide BUN Creatinine Glucose POC Glucose 245 H Calcium Phosphorus Magnesium AST Alkaline Phosphatase C-Reactive Protein Total Protein Albumin Lipase Vitamin B12 TSH Urine WBC (Auto) Urine Chloride Urine Total Protein Vancomycin Trough Crossmatch 10/23/16 10/23/16 10/23/16 22:55 Unknown Unknown WBC 22.6 H RBC 3.26 L Hgb Hct MCV RDW 17.1 H Plt Count Lymph % (Auto) [place] % (Auto) [place] # Seg Neutrophils % Seg Neuts % (Manual) Lymphocytes % (Manual) 11.0 L Monocytes % (Manual) Basophils % (Manual) Nucleated RBC % Seg Neutrophils # Seg Neutrophils # Man 14.0 H Lymphocytes # (Manual) Monocytes # (Manual) Eosinophils # (Manual) Basophils # (Manual) PT INR APTT Heparin Anti-Xa Level 0.17 L 0.15 L POC ABG pH POC ABG pCO2 POC ABG pO2 Sodium Potassium Chloride Carbon Dioxide BUN Creatinine Glucose POC Glucose Calcium Phosphorus Magnesium AST Alkaline Phosphatase C-Reactive Protein Total Protein Albumin Lipase Vitamin B12 TSH Urine WBC (Auto) Urine Chloride Urine Total Protein Vancomycin Trough Crossmatch 10/23/16 10/24/16 10/24/16 Unknown 00:05 05:30 WBC RBC Hgb Hct MCV RDW Plt Count Lymph % (Auto) [place] % (Auto) [place] # Seg Neutrophils % Seg Neuts % (Manual) Lymphocytes % (Manual) Monocytes % (Manual) Basophils % (Manual) Nucleated RBC % Seg Neutrophils # Seg Neutrophils # Man Lymphocytes # (Manual) Monocytes # (Manual) Eosinophils # (Manual) Basophils # (Manual) PT INR APTT Heparin Anti-Xa Level 0.13 L POC ABG pH POC ABG pCO2 POC ABG pO2 Sodium Potassium Chloride 111.2 H Carbon Dioxide 20 L BUN 25 H Creatinine Glucose 227 H POC Glucose 118 H Calcium 7.1 L Phosphorus Magnesium AST Alkaline Phosphatase C-Reactive Protein Total Protein Albumin Lipase Vitamin B12 TSH Urine WBC (Auto) Urine Chloride Urine Total Protein Vancomycin Trough Crossmatch 10/24/16 10/24/16 10/24/16 11:00 11:00 12:06 WBC 17.6 H RBC 2.92 L Hgb 9.2 L Hct 28.3 L MCV RDW 16.9 H Plt Count Lymph % (Auto) [place] % (Auto) [place] # Seg Neutrophils % Seg Neuts % (Manual) Lymphocytes % (Manual) Monocytes % (Manual) Basophils % (Manual) Nucleated RBC % Seg Neutrophils # Seg Neutrophils # Man Lymphocytes # (Manual) Monocytes # (Manual) Eosinophils # (Manual) Basophils # (Manual) PT INR APTT Heparin Anti-Xa Level 0.27 L POC ABG pH POC ABG pCO2 POC ABG pO2 Sodium Potassium Chloride Carbon Dioxide BUN Creatinine Glucose POC Glucose 166 H Calcium Phosphorus Magnesium AST Alkaline Phosphatase C-Reactive Protein Total Protein Albumin Lipase Vitamin B12 TSH Urine WBC (Auto) Urine Chloride Urine Total Protein Vancomycin Trough Crossmatch 10/24/16 10/25/16 10/25/16 12:27 00:49 03:30 WBC RBC Hgb 8.8 L Hct 28.1 L MCV RDW Plt Count Lymph % (Auto) [place] % (Auto) [place] # Seg Neutrophils % Seg Neuts % (Manual) Lymphocytes % (Manual) Monocytes % (Manual) Basophils % (Manual) Nucleated RBC % Seg Neutrophils # Seg Neutrophils # Man Lymphocytes # (Manual) Monocytes # (Manual) Eosinophils # (Manual) Basophils # (Manual) PT INR APTT Heparin Anti-Xa Level POC ABG pH POC ABG pCO2 33.9 L POC ABG pO2 Sodium Potassium Chloride Carbon Dioxide BUN Creatinine Glucose POC Glucose 121 H Calcium Phosphorus Magnesium AST Alkaline Phosphatase C-Reactive Protein Total Protein Albumin Lipase Vitamin B12 TSH Urine WBC (Auto) Urine Chloride Urine Total Protein Vancomycin Trough Crossmatch 10/25/16 10/25/16 10/25/16 09:49 12:10 19:25 WBC 21.1 H RBC 3.02 L Hgb 9.3 L Hct 28.9 L MCV RDW 16.3 H Plt Count Lymph % (Auto) [place] % (Auto) [place] # Seg Neutrophils % Seg Neuts % (Manual) 81.0 H Lymphocytes % (Manual) 9.0 L Monocytes % (Manual) Basophils % (Manual) Nucleated RBC % Seg Neutrophils # Seg Neutrophils # Man 17.1 H Lymphocytes # (Manual) Monocytes # (Manual) Eosinophils # (Manual) Basophils # (Manual) PT INR APTT Heparin Anti-Xa Level POC ABG pH POC ABG pCO2 POC ABG pO2 Sodium Potassium Chloride Carbon Dioxide BUN Creatinine Glucose POC Glucose 158 H 151 H Calcium Phosphorus Magnesium AST Alkaline Phosphatase C-Reactive Protein Total Protein Albumin Lipase Vitamin B12 TSH Urine WBC (Auto) Urine Chloride Urine Total Protein Vancomycin Trough Crossmatch 10/26/16 10/26/16 10/26/16 00:20 01:09 05:02 WBC 22.2 H RBC 2.89 L Hgb 8.7 L Hct 27.8 L MCV RDW 16.4 H Plt Count Lymph % (Auto) [place] % (Auto) [place] # Seg Neutrophils % Seg Neuts % (Manual) Lymphocytes % (Manual) Monocytes % (Manual) Basophils % (Manual) Nucleated RBC % Seg Neutrophils # Seg Neutrophils # Man Lymphocytes # (Manual) Monocytes # (Manual) Eosinophils # (Manual) Basophils # (Manual) PT INR APTT Heparin Anti-Xa Level POC ABG pH POC ABG pCO2 POC ABG pO2 Sodium Potassium Chloride Carbon Dioxide BUN Creatinine Glucose POC Glucose 44 L 112 H Calcium Phosphorus Magnesium AST Alkaline Phosphatase C-Reactive Protein Total Protein Albumin Lipase Vitamin B12 TSH Urine WBC (Auto) Urine Chloride Urine Total Protein Vancomycin Trough Crossmatch 10/26/16 10/26/16 10/26/16 05:02 12:11 12:14 WBC RBC Hgb Hct MCV RDW Plt Count Lymph % (Auto) [place] % (Auto) [place] # Seg Neutrophils % Seg Neuts % (Manual) Lymphocytes % (Manual) Monocytes % (Manual) Basophils % (Manual) Nucleated RBC % Seg Neutrophils # Seg Neutrophils # Man Lymphocytes # (Manual) Monocytes # (Manual) Eosinophils # (Manual) Basophils # (Manual) PT INR APTT Heparin Anti-Xa Level POC ABG pH POC ABG pCO2 32.0 L POC ABG pO2 33 L Sodium Potassium 3.2 L D Chloride Carbon Dioxide 20 L BUN 24 H Creatinine Glucose 104 H POC Glucose 194 H Calcium 7.7 L Phosphorus Magnesium AST Alkaline Phosphatase C-Reactive Protein Total Protein Albumin Lipase Vitamin B12 TSH Urine WBC (Auto) Urine Chloride Urine Total Protein Vancomycin Trough Crossmatch 10/26/16 10/26/16 10/27/16 15:28 17:23 00:04 WBC RBC Hgb Hct MCV RDW Plt Count Lymph % (Auto) [place] % (Auto) [place] # Seg Neutrophils % Seg Neuts % (Manual) Lymphocytes % (Manual) Monocytes % (Manual) Basophils % (Manual) Nucleated RBC % Seg Neutrophils # Seg Neutrophils # Man Lymphocytes # (Manual) Monocytes # (Manual) Eosinophils # (Manual) Basophils # (Manual) PT INR APTT Heparin Anti-Xa Level POC ABG pH POC ABG pCO2 33.7 L POC ABG pO2 Sodium Potassium Chloride Carbon Dioxide BUN Creatinine Glucose POC Glucose 181 H 230 H Calcium Phosphorus Magnesium AST Alkaline Phosphatase C-Reactive Protein Total Protein Albumin Lipase Vitamin B12 TSH Urine WBC (Auto) Urine Chloride Urine Total Protein Vancomycin Trough Crossmatch 10/27/16 10/27/16 10/27/16 05:15 05:15 05:38 WBC 25.5 H RBC 3.07 L Hgb 9.4 L Hct 30.1 L MCV 98 H RDW 16.4 H Plt Count 527 H Lymph % (Auto) [place] % (Auto) [place] # Seg Neutrophils % Seg Neuts % (Manual) Lymphocytes % (Manual) Monocytes % (Manual) Basophils % (Manual) Nucleated RBC % Seg Neutrophils # Seg Neutrophils # Man Lymphocytes # (Manual) Monocytes # (Manual) Eosinophils # (Manual) Basophils # (Manual) PT INR APTT Heparin Anti-Xa Level POC ABG pH POC ABG pCO2 POC ABG pO2 Sodium Potassium Chloride Carbon Dioxide 19 L BUN 23 H Creatinine Glucose 160 H POC Glucose 168 H Calcium 8.0 L Phosphorus Magnesium AST Alkaline Phosphatase C-Reactive Protein Total Protein Albumin Lipase Vitamin B12 TSH Urine WBC (Auto) Urine Chloride Urine Total Protein Vancomycin Trough Crossmatch 10/27/16 10/27/16 10/27/16 11:59 18:35 23:48 WBC RBC Hgb Hct MCV RDW Plt Count Lymph % (Auto) [place] % (Auto) [place] # Seg Neutrophils % Seg Neuts % (Manual) Lymphocytes % (Manual) Monocytes % (Manual) Basophils % (Manual) Nucleated RBC % Seg Neutrophils # Seg Neutrophils # Man Lymphocytes # (Manual) Monocytes # (Manual) Eosinophils # (Manual) Basophils # (Manual) PT INR APTT Heparin Anti-Xa Level POC ABG pH POC ABG pCO2 POC ABG pO2 Sodium Potassium Chloride Carbon Dioxide BUN Creatinine Glucose POC Glucose 197 H 318 H 316 H Calcium Phosphorus Magnesium AST Alkaline Phosphatase C-Reactive Protein Total Protein Albumin Lipase Vitamin B12 TSH Urine WBC (Auto) Urine Chloride Urine Total Protein Vancomycin Trough Crossmatch 10/28/16 10/28/16 10/28/16 03:13 04:10 04:10 WBC 18.8 H RBC 2.64 L Hgb 8.1 L Hct 26.1 L MCV 99 H RDW 16.2 H Plt Count 544 H Lymph % (Auto) [place] % (Auto) [place] # Seg Neutrophils % Seg Neuts % (Manual) Lymphocytes % (Manual) Monocytes % (Manual) Basophils % (Manual) Nucleated RBC % Seg Neutrophils # Seg Neutrophils # Man Lymphocytes # (Manual) Monocytes # (Manual) Eosinophils # (Manual) Basophils # (Manual) PT INR APTT Heparin Anti-Xa Level POC ABG pH POC ABG pCO2 POC ABG pO2 Sodium Potassium Chloride Carbon Dioxide 21 L BUN 24 H Creatinine Glucose 302 H POC Glucose 304 H Calcium 7.7 L Phosphorus Magnesium AST Alkaline Phosphatase C-Reactive Protein Total Protein Albumin Lipase Vitamin B12 TSH Urine WBC (Auto) Urine Chloride Urine Total Protein Vancomycin Trough Crossmatch 10/28/16 10/28/16 10/28/16 04:10 12:36 18:27 WBC RBC Hgb Hct MCV RDW Plt Count Lymph % (Auto) [place] % (Auto) [place] # Seg Neutrophils % Seg Neuts % (Manual) Lymphocytes % (Manual) Monocytes % (Manual) Basophils % (Manual) Nucleated RBC % Seg Neutrophils # Seg Neutrophils # Man Lymphocytes # (Manual) Monocytes # (Manual) Eosinophils # (Manual) Basophils # (Manual) PT INR APTT Heparin Anti-Xa Level 0.20 L POC ABG pH POC ABG pCO2 POC ABG pO2 Sodium Potassium Chloride Carbon Dioxide BUN Creatinine Glucose POC Glucose 205 H 339 H Calcium Phosphorus Magnesium AST Alkaline Phosphatase C-Reactive Protein Total Protein Albumin Lipase Vitamin B12 TSH Urine WBC (Auto) Urine Chloride Urine Total Protein Vancomycin Trough Crossmatch 10/29/16 10/29/16 10/29/16 01:05 06:19 09:30 WBC 20.3 H RBC 2.80 L Hgb 8.5 L Hct 26.7 L MCV RDW 15.4 H Plt Count 571 H Lymph % (Auto) [place] % (Auto) [place] # Seg Neutrophils % Seg Neuts % (Manual) 75.0 H Lymphocytes % (Manual) 4.0 L Monocytes % (Manual) Basophils % (Manual) Nucleated RBC % Seg Neutrophils # Seg Neutrophils # Man 15.2 H Lymphocytes # (Manual) 0.8 L Monocytes # (Manual) Eosinophils # (Manual) Basophils # (Manual) PT INR APTT Heparin Anti-Xa Level POC ABG pH POC ABG pCO2 POC ABG pO2 Sodium Potassium Chloride Carbon Dioxide BUN Creatinine Glucose POC Glucose 275 H 179 H Calcium Phosphorus Magnesium AST Alkaline Phosphatase C-Reactive Protein Total Protein Albumin Lipase Vitamin B12 TSH Urine WBC (Auto) Urine Chloride Urine Total Protein Vancomycin Trough Crossmatch 10/29/16 10/29/16 10/29/16 11:46 15:18 17:55 WBC RBC Hgb Hct MCV RDW Plt Count Lymph % (Auto) [place] % (Auto) [place] # Seg Neutrophils % Seg Neuts % (Manual) Lymphocytes % (Manual) Monocytes % (Manual) Basophils % (Manual) Nucleated RBC % Seg Neutrophils # Seg Neutrophils # Man Lymphocytes # (Manual) Monocytes # (Manual) Eosinophils # (Manual) Basophils # (Manual) PT INR APTT Heparin Anti-Xa Level 1.15 H POC ABG pH POC ABG pCO2 POC ABG pO2 Sodium Potassium Chloride Carbon Dioxide BUN Creatinine Glucose POC Glucose 122 H 255 H Calcium Phosphorus Magnesium AST Alkaline Phosphatase C-Reactive Protein Total Protein Albumin Lipase Vitamin B12 TSH Urine WBC (Auto) Urine Chloride Urine Total Protein Vancomycin Trough Crossmatch 10/30/16 10/30/16 10/30/16 00:10 05:30 05:30 WBC 19.8 H RBC 2.51 L Hgb 7.7 L Hct 24.1 L MCV RDW 15.5 H Plt Count 534 H Lymph % (Auto) [place] % (Auto) [place] # Seg Neutrophils % Seg Neuts % (Manual) Lymphocytes % (Manual) Monocytes % (Manual) Basophils % (Manual) Nucleated RBC % Seg Neutrophils # Seg Neutrophils # Man Lymphocytes # (Manual) Monocytes # (Manual) Eosinophils # (Manual) Basophils # (Manual) PT INR APTT Heparin Anti-Xa Level POC ABG pH POC ABG pCO2 POC ABG pO2 Sodium Potassium Chloride Carbon Dioxide BUN Creatinine Glucose 211 H POC Glucose 202 H Calcium 7.4 L Phosphorus Magnesium AST Alkaline Phosphatase C-Reactive Protein Total Protein Albumin Lipase Vitamin B12 TSH Urine WBC (Auto) Urine Chloride Urine Total Protein Vancomycin Trough Crossmatch 10/30/16 10/30/16 10/30/16 06:32 12:51 17:47 WBC RBC Hgb Hct MCV RDW Plt Count Lymph % (Auto) [place] % (Auto) [place] # Seg Neutrophils % Seg Neuts % (Manual) Lymphocytes % (Manual) Monocytes % (Manual) Basophils % (Manual) Nucleated RBC % Seg Neutrophils # Seg Neutrophils # Man Lymphocytes # (Manual) Monocytes # (Manual) Eosinophils # (Manual) Basophils # (Manual) PT INR APTT Heparin Anti-Xa Level POC ABG pH POC ABG pCO2 POC ABG pO2 Sodium Potassium Chloride Carbon Dioxide BUN Creatinine Glucose POC Glucose 207 H 218 H 169 H Calcium Phosphorus Magnesium AST Alkaline Phosphatase C-Reactive Protein Total Protein Albumin Lipase Vitamin B12 TSH Urine WBC (Auto) Urine Chloride Urine Total Protein Vancomycin Trough Crossmatch 10/30/16 10/31/16 10/31/16 23:59 05:25 11:21 WBC RBC Hgb Hct MCV RDW Plt Count Lymph % (Auto) [place] % (Auto) [place] # Seg Neutrophils % Seg Neuts % (Manual) Lymphocytes % (Manual) Monocytes % (Manual) Basophils % (Manual) Nucleated RBC % Seg Neutrophils # Seg Neutrophils # Man Lymphocytes # (Manual) Monocytes # (Manual) Eosinophils # (Manual) Basophils # (Manual) PT INR APTT Heparin Anti-Xa Level POC ABG pH POC ABG pCO2 POC ABG pO2 Sodium Potassium Chloride Carbon Dioxide BUN Creatinine Glucose POC Glucose 138 H 127 H 132 H Calcium Phosphorus Magnesium AST Alkaline Phosphatase C-Reactive Protein Total Protein Albumin Lipase Vitamin B12 TSH Urine WBC (Auto) Urine Chloride Urine Total Protein Vancomycin Trough Crossmatch 10/31/16 10/31/16 11/01/16 17:07 23:54 05:47 WBC RBC Hgb Hct MCV RDW Plt Count Lymph % (Auto) [place] % (Auto) [place] # Seg Neutrophils % Seg Neuts % (Manual) Lymphocytes % (Manual) Monocytes % (Manual) Basophils % (Manual) Nucleated RBC % Seg Neutrophils # Seg Neutrophils # Man Lymphocytes # (Manual) Monocytes # (Manual) Eosinophils # (Manual) Basophils # (Manual) PT INR APTT Heparin Anti-Xa Level POC ABG pH POC ABG pCO2 POC ABG pO2 Sodium Potassium Chloride Carbon Dioxide BUN Creatinine Glucose POC Glucose 138 H 153 H 150 H Calcium Phosphorus Magnesium AST Alkaline Phosphatase C-Reactive Protein Total Protein Albumin Lipase Vitamin B12 TSH Urine WBC (Auto) Urine Chloride Urine Total Protein Vancomycin Trough Crossmatch 11/01/16 11/01/16 11/01/16 06:33 06:33 12:16 WBC 19.2 H RBC 2.51 L Hgb 7.9 L Hct 24.8 L MCV 99 H D RDW 16.1 H Plt Count 569 H Lymph % (Auto) [place] % (Auto) [place] # Seg Neutrophils % Seg Neuts % (Manual) Lymphocytes % (Manual) Monocytes % (Manual) Basophils % (Manual) Nucleated RBC % Seg Neutrophils # Seg Neutrophils # Man Lymphocytes # (Manual) Monocytes # (Manual) Eosinophils # (Manual) Basophils # (Manual) PT INR APTT Heparin Anti-Xa Level POC ABG pH POC ABG pCO2 POC ABG pO2 Sodium Potassium 3.5 L Chloride Carbon Dioxide 21 L BUN Creatinine Glucose 137 H POC Glucose 125 H Calcium 7.7 L Phosphorus Magnesium AST Alkaline Phosphatase 148 H C-Reactive Protein Total Protein 6.2 L Albumin 2.0 L Lipase Vitamin B12 TSH Urine WBC (Auto) Urine Chloride Urine Total Protein Vancomycin Trough Crossmatch 11/01/16 11/02/16 11/02/16 17:37 00:05 04:15 WBC RBC Hgb Hct MCV RDW Plt Count Lymph % (Auto) [place] % (Auto) [place] # Seg Neutrophils % Seg Neuts % (Manual) Lymphocytes % (Manual) Monocytes % (Manual) Basophils % (Manual) Nucleated RBC % Seg Neutrophils # Seg Neutrophils # Man Lymphocytes # (Manual) Monocytes # (Manual) Eosinophils # (Manual) Basophils # (Manual) PT INR APTT Heparin Anti-Xa Level < 0.10 L POC ABG pH POC ABG pCO2 POC ABG pO2 Sodium Potassium 3.2 L Chloride Carbon Dioxide BUN 6 L Creatinine Glucose 135 H POC Glucose 164 H Calcium 7.5 L Phosphorus Magnesium AST Alkaline Phosphatase 132 H C-Reactive Protein Total Protein 6.2 L Albumin 1.8 L Lipase Vitamin B12 TSH Urine WBC (Auto) Urine Chloride Urine Total Protein Vancomycin Trough Crossmatch 11/02/16 11/02/16 11/02/16 04:15 05:54 12:15 WBC 17.7 H RBC 2.43 L Hgb 7.6 L Hct 23.5 L MCV RDW 15.9 H Plt Count 502 H Lymph % (Auto) [place] % (Auto) [place] # Seg Neutrophils % Seg Neuts % (Manual) 84.0 H Lymphocytes % (Manual) 11.0 L Monocytes % (Manual) Basophils % (Manual) Nucleated RBC % 1.0 H Seg Neutrophils # Seg Neutrophils # Man 14.9 H Lymphocytes # (Manual) Monocytes # (Manual) Eosinophils # (Manual) Basophils # (Manual) PT INR APTT Heparin Anti-Xa Level POC ABG pH POC ABG pCO2 POC ABG pO2 Sodium Potassium Chloride Carbon Dioxide BUN Creatinine Glucose POC Glucose 152 H 137 H Calcium Phosphorus Magnesium AST Alkaline Phosphatase C-Reactive Protein Total Protein Albumin Lipase Vitamin B12 TSH Urine WBC (Auto) Urine Chloride Urine Total Protein Vancomycin Trough Crossmatch 11/02/16 11/03/16 11/03/16 17:00 00:05 00:05 WBC RBC Hgb Hct MCV RDW Plt Count Lymph % (Auto) [place] % (Auto) [place] # Seg Neutrophils % Seg Neuts % (Manual) Lymphocytes % (Manual) Monocytes % (Manual) Basophils % (Manual) Nucleated RBC % Seg Neutrophils # Seg Neutrophils # Man Lymphocytes # (Manual) Monocytes # (Manual) Eosinophils # (Manual) Basophils # (Manual) PT INR APTT Heparin Anti-Xa Level POC ABG pH POC ABG pCO2 POC ABG pO2 Sodium Potassium Chloride Carbon Dioxide 20 L BUN 5 L Creatinine Glucose 139 H POC Glucose 161 H Calcium 6.7 L Phosphorus Magnesium 1.2 L AST Alkaline Phosphatase C-Reactive Protein Total Protein Albumin Lipase Vitamin B12 TSH Urine WBC (Auto) Urine Chloride Urine Total Protein Vancomycin Trough Crossmatch 11/03/16 11/03/16 11/03/16 00:05 02:05 04:23 WBC 15.9 H 14.0 H RBC 1.93 L 2.38 L Hgb 5.9 L* 7.3 L Hct 18.9 L* 23.1 L MCV 98 H RDW 15.9 H 15.9 H Plt Count Lymph % (Auto) [place] % (Auto) [place] # Seg Neutrophils % Seg Neuts % (Manual) 85.0 H Lymphocytes % (Manual) 4.0 L Monocytes % (Manual) Basophils % (Manual) Nucleated RBC % Seg Neutrophils # Seg Neutrophils # Man 13.5 H Lymphocytes # (Manual) 0.6 L Monocytes # (Manual) Eosinophils # (Manual) Basophils # (Manual) PT INR APTT Heparin Anti-Xa Level POC ABG pH POC ABG pCO2 POC ABG pO2 Sodium Potassium Chloride Carbon Dioxide BUN 5 L Creatinine Glucose 127 H POC Glucose Calcium 7.2 L Phosphorus Magnesium AST Alkaline Phosphatase C-Reactive Protein Total Protein 5.8 L Albumin 1.5 L Lipase Vitamin B12 TSH Urine WBC (Auto) Urine Chloride Urine Total Protein Vancomycin Trough Crossmatch 11/03/16 11/03/16 11/03/16 09:14 09:27 11:54 WBC RBC Hgb Hct MCV RDW Plt Count Lymph % (Auto) [place] % (Auto) [place] # Seg Neutrophils % Seg Neuts % (Manual) Lymphocytes % (Manual) Monocytes % (Manual) Basophils % (Manual) Nucleated RBC % Seg Neutrophils # Seg Neutrophils # Man Lymphocytes # (Manual) Monocytes # (Manual) Eosinophils # (Manual) Basophils # (Manual) PT INR APTT Heparin Anti-Xa Level 0.11 L POC ABG pH POC ABG pCO2 POC ABG pO2 Sodium Potassium Chloride Carbon Dioxide BUN 5 L Creatinine Glucose 111 H POC Glucose 139 H Calcium 6.7 L Phosphorus Magnesium AST Alkaline Phosphatase C-Reactive Protein Total Protein Albumin Lipase Vitamin B12 TSH Urine WBC (Auto) Urine Chloride Urine Total Protein Vancomycin Trough Crossmatch 11/03/16 11/03/16 11/03/16 16:26 18:01 18:01 WBC RBC Hgb Hct MCV RDW Plt Count Lymph % (Auto) [place] % (Auto) [place] # Seg Neutrophils % Seg Neuts % (Manual) Lymphocytes % (Manual) Monocytes % (Manual) Basophils % (Manual) Nucleated RBC % Seg Neutrophils # Seg Neutrophils # Man Lymphocytes # (Manual) Monocytes # (Manual) Eosinophils # (Manual) Basophils # (Manual) PT INR APTT Heparin Anti-Xa Level 2.00 H POC ABG pH POC ABG pCO2 POC ABG pO2 Sodium Potassium Chloride Carbon Dioxide BUN Creatinine Glucose POC Glucose 142 H Calcium Phosphorus Magnesium AST Alkaline Phosphatase C-Reactive Protein Total Protein Albumin Lipase Vitamin B12 TSH Urine WBC (Auto) Urine Chloride Urine Total Protein Vancomycin Trough Crossmatch See Detail 11/04/16 11/04/16 11/04/16 02:15 02:15 06:35 WBC 11.8 H RBC 2.39 L Hgb 7.4 L Hct 23.1 L MCV RDW 15.9 H Plt Count Lymph % (Auto) [place] % (Auto) [place] # Seg Neutrophils % Seg Neuts % (Manual) 76.0 H Lymphocytes % (Manual) 12.0 L Monocytes % (Manual) 9.0 H Basophils % (Manual) Nucleated RBC % Seg Neutrophils # Seg Neutrophils # Man 9.0 H Lymphocytes # (Manual) Monocytes # (Manual) 1.1 H Eosinophils # (Manual) Basophils # (Manual) PT INR APTT Heparin Anti-Xa Level < 0.10 L POC ABG pH POC ABG pCO2 POC ABG pO2 Sodium Potassium Chloride Carbon Dioxide 21 L BUN 5 L Creatinine Glucose 112 H POC Glucose Calcium 6.8 L Phosphorus Magnesium AST Alkaline Phosphatase C-Reactive Protein Total Protein 5.7 L Albumin 1.7 L Lipase Vitamin B12 TSH Urine WBC (Auto) Urine Chloride Urine Total Protein Vancomycin Trough Crossmatch 11/04/16 11/04/16 11/04/16 10:51 12:58 15:04 WBC RBC Hgb Hct MCV RDW Plt Count Lymph % (Auto) [place] % (Auto) [place] # Seg Neutrophils % Seg Neuts % (Manual) Lymphocytes % (Manual) Monocytes % (Manual) Basophils % (Manual) Nucleated RBC % Seg Neutrophils # Seg Neutrophils # Man Lymphocytes # (Manual) Monocytes # (Manual) Eosinophils # (Manual) Basophils # (Manual) PT INR APTT Heparin Anti-Xa Level 1.05 H POC ABG pH POC ABG pCO2 33.7 L POC ABG pO2 60 L Sodium Potassium Chloride Carbon Dioxide BUN Creatinine Glucose POC Glucose 118 H Calcium Phosphorus Magnesium AST Alkaline Phosphatase C-Reactive Protein Total Protein Albumin Lipase Vitamin B12 TSH Urine WBC (Auto) Urine Chloride Urine Total Protein Vancomycin Trough Crossmatch 11/04/16 11/04/16 11/05/16 17:20 20:31 02:30 WBC RBC Hgb Hct MCV RDW Plt Count Lymph % (Auto) [place] % (Auto) [place] # Seg Neutrophils % Seg Neuts % (Manual) Lymphocytes % (Manual) Monocytes % (Manual) Basophils % (Manual) Nucleated RBC % Seg Neutrophils # Seg Neutrophils # Man Lymphocytes # (Manual) Monocytes # (Manual) Eosinophils # (Manual) Basophils # (Manual) PT INR APTT Heparin Anti-Xa Level POC ABG pH POC ABG pCO2 POC ABG pO2 Sodium Potassium 3.5 L Chloride Carbon Dioxide 18 L BUN 5 L Creatinine 0.6 L Glucose 110 H POC Glucose 228 H 169 H Calcium 7.1 L Phosphorus Magnesium AST Alkaline Phosphatase C-Reactive Protein Total Protein Albumin 1.9 L Lipase Vitamin B12 TSH Urine WBC (Auto) Urine Chloride Urine Total Protein Vancomycin Trough Crossmatch 11/05/16 11/05/16 11/05/16 02:30 17:52 21:07 WBC 14.1 H RBC Hgb Hct MCV RDW 16.7 H Plt Count Lymph % (Auto) [place] % (Auto) [place] # Seg Neutrophils % Seg Neuts % (Manual) 80.0 H Lymphocytes % (Manual) 6.0 L Monocytes % (Manual) 8.0 H Basophils % (Manual) Nucleated RBC % Seg Neutrophils # Seg Neutrophils # Man 11.3 H Lymphocytes # (Manual) 0.8 L Monocytes # (Manual) 1.1 H Eosinophils # (Manual) Basophils # (Manual) PT INR APTT Heparin Anti-Xa Level < 0.10 L POC ABG pH POC ABG pCO2 POC ABG pO2 Sodium Potassium Chloride Carbon Dioxide BUN Creatinine Glucose POC Glucose 174 H Calcium Phosphorus Magnesium AST Alkaline Phosphatase C-Reactive Protein Total Protein Albumin Lipase Vitamin B12 TSH Urine WBC (Auto) Urine Chloride Urine Total Protein Vancomycin Trough Crossmatch 11/05/16 11/06/16 11/06/16 23:30 05:00 05:00 WBC 15.2 H RBC 3.29 L Hgb 10.0 L Hct MCV RDW 16.9 H Plt Count Lymph % (Auto) [place] % (Auto) [place] # Seg Neutrophils % Seg Neuts % (Manual) Lymphocytes % (Manual) Monocytes % (Manual) Basophils % (Manual) Nucleated RBC % Seg Neutrophils # Seg Neutrophils # Man Lymphocytes # (Manual) Monocytes # (Manual) Eosinophils # (Manual) Basophils # (Manual) PT INR APTT Heparin Anti-Xa Level 0.94 H POC ABG pH POC ABG pCO2 POC ABG pO2 Sodium Potassium Chloride Carbon Dioxide BUN Creatinine Glucose POC Glucose 131 H Calcium Phosphorus Magnesium AST Alkaline Phosphatase C-Reactive Protein Total Protein Albumin Lipase Vitamin B12 TSH Urine WBC (Auto) Urine Chloride Urine Total Protein Vancomycin Trough Crossmatch 11/06/16 11/06/16 11/06/16 05:00 11:45 18:23 WBC RBC Hgb Hct MCV RDW Plt Count Lymph % (Auto) [place] % (Auto) [place] # Seg Neutrophils % Seg Neuts % (Manual) Lymphocytes % (Manual) Monocytes % (Manual) Basophils % (Manual) Nucleated RBC % Seg Neutrophils # Seg Neutrophils # Man Lymphocytes # (Manual) Monocytes # (Manual) Eosinophils # (Manual) Basophils # (Manual) PT INR APTT Heparin Anti-Xa Level POC ABG pH POC ABG pCO2 POC ABG pO2 Sodium Potassium 3.5 L Chloride 107.1 H Carbon Dioxide 20 L BUN 4 L Creatinine 0.6 L Glucose 104 H POC Glucose 141 H 255 H Calcium 6.7 L Phosphorus Magnesium AST Alkaline Phosphatase C-Reactive Protein Total Protein Albumin Lipase Vitamin B12 TSH Urine WBC (Auto) Urine Chloride Urine Total Protein Vancomycin Trough Crossmatch 11/06/16 11/06/16 11/07/16 22:07 23:07 11:41 WBC RBC Hgb Hct MCV RDW Plt Count Lymph % (Auto) [place] % (Auto) [place] # Seg Neutrophils % Seg Neuts % (Manual) Lymphocytes % (Manual) Monocytes % (Manual) Basophils % (Manual) Nucleated RBC % Seg Neutrophils # Seg Neutrophils # Man Lymphocytes # (Manual) Monocytes # (Manual) Eosinophils # (Manual) Basophils # (Manual) PT INR APTT Heparin Anti-Xa Level 0.80 H POC ABG pH POC ABG pCO2 POC ABG pO2 Sodium Potassium Chloride Carbon Dioxide BUN Creatinine Glucose POC Glucose 183 H 132 H Calcium Phosphorus Magnesium AST Alkaline Phosphatase C-Reactive Protein Total Protein Albumin Lipase Vitamin B12 TSH Urine WBC (Auto) Urine Chloride Urine Total Protein Vancomycin Trough Crossmatch 11/07/16 11/07/16 11/07/16 12:17 17:05 17:58 WBC RBC Hgb Hct MCV RDW Plt Count Lymph % (Auto) [place] % (Auto) [place] # Seg Neutrophils % Seg Neuts % (Manual) Lymphocytes % (Manual) Monocytes % (Manual) Basophils % (Manual) Nucleated RBC % Seg Neutrophils # Seg Neutrophils # Man Lymphocytes # (Manual) Monocytes # (Manual) Eosinophils # (Manual) Basophils # (Manual) PT INR APTT Heparin Anti-Xa Level 0.87 H POC ABG pH 7.324 L POC ABG pCO2 POC ABG pO2 Sodium Potassium Chloride Carbon Dioxide BUN Creatinine Glucose POC Glucose 158 H Calcium Phosphorus Magnesium AST Alkaline Phosphatase C-Reactive Protein Total Protein Albumin Lipase Vitamin B12 TSH Urine WBC (Auto) Urine Chloride Urine Total Protein Vancomycin Trough Crossmatch 11/07/16 11/07/16 11/07/16 23:26 Unknown Unknown WBC 12.3 H RBC 2.96 L Hgb 9.1 L Hct 27.9 L MCV RDW 16.8 H Plt Count Lymph % (Auto) [place] % (Auto) [place] # Seg Neutrophils % Seg Neuts % (Manual) 80.0 H Lymphocytes % (Manual) 7.0 L Monocytes % (Manual) Basophils % (Manual) Nucleated RBC % Seg Neutrophils # Seg Neutrophils # Man 9.8 H Lymphocytes # (Manual) 0.9 L Monocytes # (Manual) Eosinophils # (Manual) Basophils # (Manual) PT INR APTT Heparin Anti-Xa Level POC ABG pH POC ABG pCO2 POC ABG pO2 Sodium Potassium Chloride Carbon Dioxide 19 L BUN Creatinine Glucose 106 H POC Glucose 130 H Calcium 6.9 L Phosphorus Magnesium AST Alkaline Phosphatase C-Reactive Protein Total Protein Albumin Lipase Vitamin B12 TSH Urine WBC (Auto) Urine Chloride Urine Total Protein Vancomycin Trough Crossmatch 11/07/16 11/08/16 11/08/16 Unknown 05:14 05:20 WBC 12.4 H RBC 3.04 L Hgb 9.2 L Hct 28.8 L MCV RDW 16.6 H Plt Count Lymph % (Auto) [place] % (Auto) [place] # Seg Neutrophils % Seg Neuts % (Manual) 77.0 H Lymphocytes % (Manual) 5.0 L Monocytes % (Manual) Basophils % (Manual) 2.0 H Nucleated RBC % Seg Neutrophils # Seg Neutrophils # Man 9.5 H Lymphocytes # (Manual) 0.6 L Monocytes # (Manual) Eosinophils # (Manual) Basophils # (Manual) 0.2 H PT INR APTT Heparin Anti-Xa Level 0.90 H POC ABG pH POC ABG pCO2 POC ABG pO2 Sodium Potassium Chloride Carbon Dioxide BUN Creatinine Glucose POC Glucose 204 H Calcium Phosphorus Magnesium AST Alkaline Phosphatase C-Reactive Protein Total Protein Albumin Lipase Vitamin B12 TSH Urine WBC (Auto) Urine Chloride Urine Total Protein Vancomycin Trough Crossmatch 11/08/16 11/08/16 11/08/16 05:20 12:10 13:10 WBC RBC Hgb Hct MCV RDW Plt Count Lymph % (Auto) [place] % (Auto) [place] # Seg Neutrophils % Seg Neuts % (Manual) Lymphocytes % (Manual) Monocytes % (Manual) Basophils % (Manual) Nucleated RBC % Seg Neutrophils # Seg Neutrophils # Man Lymphocytes # (Manual) Monocytes # (Manual) Eosinophils # (Manual) Basophils # (Manual) PT INR APTT Heparin Anti-Xa Level POC ABG pH POC ABG pCO2 33.7 L POC ABG pO2 Sodium 136 L Potassium Chloride Carbon Dioxide 19 L BUN Creatinine Glucose 192 H POC Glucose 180 H Calcium 7.1 L Phosphorus Magnesium AST Alkaline Phosphatase C-Reactive Protein Total Protein Albumin Lipase Vitamin B12 TSH Urine WBC (Auto) Urine Chloride Urine Total Protein Vancomycin Trough Crossmatch 11/08/16 11/08/16 11/08/16 17:26 20:45 23:34 WBC RBC Hgb Hct MCV RDW Plt Count Lymph % (Auto) [place] % (Auto) [place] # Seg Neutrophils % Seg Neuts % (Manual) Lymphocytes % (Manual) Monocytes % (Manual) Basophils % (Manual) Nucleated RBC % Seg Neutrophils # Seg Neutrophils # Man Lymphocytes # (Manual) Monocytes # (Manual) Eosinophils # (Manual) Basophils # (Manual) PT INR APTT Heparin Anti-Xa Level POC ABG pH POC ABG pCO2 POC ABG pO2 Sodium Potassium Chloride Carbon Dioxide BUN Creatinine Glucose POC Glucose 187 H 178 H Calcium Phosphorus Magnesium AST Alkaline Phosphatase C-Reactive Protein Total Protein Albumin Lipase Vitamin B12 TSH Urine WBC (Auto) Urine Chloride Urine Total Protein Vancomycin Trough 35.4 H Crossmatch 11/09/16 11/09/16 11/09/16 05:30 05:30 05:59 WBC 11.5 H RBC 2.96 L Hgb 9.2 L Hct 28.2 L MCV RDW 16.4 H Plt Count Lymph % (Auto) [place] % (Auto) [place] # Seg Neutrophils % Seg Neuts % (Manual) 76.0 H Lymphocytes % (Manual) 2.0 L Monocytes % (Manual) Basophils % (Manual) Nucleated RBC % Seg Neutrophils # Seg Neutrophils # Man 8.7 H Lymphocytes # (Manual) 0.2 L Monocytes # (Manual) Eosinophils # (Manual) Basophils # (Manual) PT INR APTT Heparin Anti-Xa Level POC ABG pH POC ABG pCO2 POC ABG pO2 Sodium Potassium 3.4 L Chloride 107.6 H Carbon Dioxide 19 L BUN Creatinine 0.6 L Glucose 207 H POC Glucose 263 H Calcium 7.3 L Phosphorus Magnesium AST Alkaline Phosphatase C-Reactive Protein Total Protein Albumin Lipase Vitamin B12 TSH Urine WBC (Auto) Urine Chloride Urine Total Protein Vancomycin Trough Crossmatch 11/09/16 11/09/16 11/09/16 11:49 15:24 18:04 WBC RBC Hgb Hct MCV RDW Plt Count Lymph % (Auto) [place] % (Auto) [place] # Seg Neutrophils % Seg Neuts % (Manual) Lymphocytes % (Manual) Monocytes % (Manual) Basophils % (Manual) Nucleated RBC % Seg Neutrophils # Seg Neutrophils # Man Lymphocytes # (Manual) Monocytes # (Manual) Eosinophils # (Manual) Basophils # (Manual) PT INR APTT Heparin Anti-Xa Level POC ABG pH POC ABG pCO2 33.8 L POC ABG pO2 131 H Sodium Potassium Chloride Carbon Dioxide BUN Creatinine Glucose POC Glucose 269 H 242 H Calcium Phosphorus Magnesium AST Alkaline Phosphatase C-Reactive Protein Total Protein Albumin Lipase Vitamin B12 TSH Urine WBC (Auto) Urine Chloride Urine Total Protein Vancomycin Trough Crossmatch 11/09/16 11/10/16 11/10/16 22:57 04:30 04:30 WBC 15.7 H RBC 3.17 L Hgb 9.7 L Hct 30.2 L MCV RDW 16.2 H Plt Count Lymph % (Auto) [place] % (Auto) [place] # Seg Neutrophils % Seg Neuts % (Manual) Lymphocytes % (Manual) Monocytes % (Manual) Basophils % (Manual) Nucleated RBC % Seg Neutrophils # Seg Neutrophils # Man 8.5 H Lymphocytes # (Manual) Monocytes # (Manual) Eosinophils # (Manual) 0.5 H Basophils # (Manual) PT INR APTT Heparin Anti-Xa Level POC ABG pH POC ABG pCO2 POC ABG pO2 Sodium Potassium Chloride Carbon Dioxide 19 L BUN Creatinine 0.6 L Glucose 199 H POC Glucose 239 H Calcium 7.8 L Phosphorus Magnesium AST Alkaline Phosphatase C-Reactive Protein Total Protein Albumin Lipase Vitamin B12 TSH Urine WBC (Auto) Urine Chloride Urine Total Protein Vancomycin Trough Crossmatch 11/10/16 11/10/16 11/10/16 04:30 11:32 16:00 WBC RBC Hgb Hct MCV RDW Plt Count Lymph % (Auto) [place] % (Auto) [place] # Seg Neutrophils % Seg Neuts % (Manual) Lymphocytes % (Manual) Monocytes % (Manual) Basophils % (Manual) Nucleated RBC % Seg Neutrophils # Seg Neutrophils # Man Lymphocytes # (Manual) Monocytes # (Manual) Eosinophils # (Manual) Basophils # (Manual) PT INR APTT Heparin Anti-Xa Level 1.09 H < 0.10 L POC ABG pH POC ABG pCO2 POC ABG pO2 Sodium Potassium Chloride Carbon Dioxide BUN Creatinine Glucose POC Glucose 211 H Calcium Phosphorus Magnesium AST Alkaline Phosphatase C-Reactive Protein Total Protein Albumin Lipase Vitamin B12 TSH Urine WBC (Auto) Urine Chloride Urine Total Protein Vancomycin Trough Crossmatch 11/10/16 11/10/16 11/10/16 17:39 18:00 23:06 WBC RBC Hgb Hct MCV RDW Plt Count Lymph % (Auto) [place] % (Auto) [place] # Seg Neutrophils % Seg Neuts % (Manual) Lymphocytes % (Manual) Monocytes % (Manual) Basophils % (Manual) Nucleated RBC % Seg Neutrophils # Seg Neutrophils # Man Lymphocytes # (Manual) Monocytes # (Manual) Eosinophils # (Manual) Basophils # (Manual) PT INR APTT Heparin Anti-Xa Level 0.85 H POC ABG pH POC ABG pCO2 POC ABG pO2 Sodium Potassium Chloride Carbon Dioxide BUN Creatinine Glucose POC Glucose 249 H 220 H Calcium Phosphorus Magnesium AST Alkaline Phosphatase C-Reactive Protein Total Protein Albumin Lipase Vitamin B12 TSH Urine WBC (Auto) Urine Chloride Urine Total Protein Vancomycin Trough Crossmatch 11/11/16 11/11/16 11/11/16 05:56 06:15 06:15 WBC 13.3 H RBC 2.87 L Hgb 8.7 L Hct 27.2 L MCV RDW 16.4 H Plt Count Lymph % (Auto) [place] % (Auto) [place] # 0.9 H Seg Neutrophils % 78.9 H Seg Neuts % (Manual) Lymphocytes % (Manual) Monocytes % (Manual) Basophils % (Manual) Nucleated RBC % Seg Neutrophils # 10.5 H Seg Neutrophils # Man Lymphocytes # (Manual) Monocytes # (Manual) Eosinophils # (Manual) Basophils # (Manual) PT INR APTT Heparin Anti-Xa Level POC ABG pH POC ABG pCO2 POC ABG pO2 Sodium Potassium 3.2 L Chloride Carbon Dioxide 19 L BUN Creatinine Glucose POC Glucose 117 H Calcium 7.6 L Phosphorus Magnesium AST Alkaline Phosphatase C-Reactive Protein Total Protein Albumin Lipase Vitamin B12 TSH Urine WBC (Auto) Urine Chloride Urine Total Protein Vancomycin Trough Crossmatch 11/11/16 11/11/16 11/11/16 12:26 16:58 17:33 WBC RBC Hgb Hct MCV RDW Plt Count Lymph % (Auto) [place] % (Auto) [place] # Seg Neutrophils % Seg Neuts % (Manual) Lymphocytes % (Manual) Monocytes % (Manual) Basophils % (Manual) Nucleated RBC % Seg Neutrophils # Seg Neutrophils # Man Lymphocytes # (Manual) Monocytes # (Manual) Eosinophils # (Manual) Basophils # (Manual) PT INR APTT Heparin Anti-Xa Level < 0.10 L POC ABG pH POC ABG pCO2 POC ABG pO2 Sodium Potassium Chloride Carbon Dioxide BUN Creatinine Glucose POC Glucose 114 H 161 H Calcium Phosphorus Magnesium AST Alkaline Phosphatase C-Reactive Protein Total Protein Albumin Lipase Vitamin B12 TSH Urine WBC (Auto) Urine Chloride Urine Total Protein Vancomycin Trough Crossmatch 11/12/16 11/12/16 11/12/16 05:00 05:00 05:00 WBC 12.8 H RBC 2.75 L Hgb 8.4 L Hct 25.7 L MCV RDW 16.3 H Plt Count Lymph % (Auto) [place] % (Auto) 7.5 H [place] # 1.0 H Seg Neutrophils % 78.0 H Seg Neuts % (Manual) Lymphocytes % (Manual) Monocytes % (Manual) Basophils % (Manual) Nucleated RBC % Seg Neutrophils # 10.0 H Seg Neutrophils # Man Lymphocytes # (Manual) Monocytes # (Manual) Eosinophils # (Manual) Basophils # (Manual) PT INR APTT Heparin Anti-Xa Level 0.87 H POC ABG pH POC ABG pCO2 POC ABG pO2 Sodium Potassium 3.4 L Chloride Carbon Dioxide 19 L BUN Creatinine Glucose 112 H POC Glucose Calcium 7.7 L Phosphorus Magnesium AST Alkaline Phosphatase C-Reactive Protein Total Protein Albumin Lipase Vitamin B12 TSH Urine WBC (Auto) Urine Chloride Urine Total Protein Vancomycin Trough Crossmatch 11/12/16 11/12/16 11/13/16 11:18 16:40 00:44 WBC RBC Hgb Hct MCV RDW Plt Count Lymph % (Auto) [place] % (Auto) [place] # Seg Neutrophils % Seg Neuts % (Manual) Lymphocytes % (Manual) Monocytes % (Manual) Basophils % (Manual) Nucleated RBC % Seg Neutrophils # Seg Neutrophils # Man Lymphocytes # (Manual) Monocytes # (Manual) Eosinophils # (Manual) Basophils # (Manual) PT INR APTT Heparin Anti-Xa Level POC ABG pH POC ABG pCO2 POC ABG pO2 Sodium Potassium Chloride Carbon Dioxide BUN Creatinine Glucose POC Glucose 135 H 139 H 169 H Calcium Phosphorus Magnesium AST Alkaline Phosphatase C-Reactive Protein Total Protein Albumin Lipase Vitamin B12 TSH Urine WBC (Auto) Urine Chloride Urine Total Protein Vancomycin Trough Crossmatch 11/13/16 11/13/16 11/13/16 05:28 05:28 06:02 WBC 12.7 H RBC 2.93 L Hgb 9.0 L Hct 27.6 L MCV RDW 16.1 H Plt Count Lymph % (Auto) [place] % (Auto) [place] # Seg Neutrophils % 78.6 H Seg Neuts % (Manual) Lymphocytes % (Manual) Monocytes % (Manual) Basophils % (Manual) Nucleated RBC % Seg Neutrophils # 10.0 H Seg Neutrophils # Man Lymphocytes # (Manual) Monocytes # (Manual) Eosinophils # (Manual) Basophils # (Manual) PT INR APTT Heparin Anti-Xa Level POC ABG pH POC ABG pCO2 POC ABG pO2 Sodium Potassium Chloride Carbon Dioxide 17 L BUN Creatinine Glucose 116 H POC Glucose 112 H Calcium 7.8 L Phosphorus Magnesium AST Alkaline Phosphatase C-Reactive Protein Total Protein Albumin Lipase Vitamin B12 TSH Urine WBC (Auto) Urine Chloride Urine Total Protein Vancomycin Trough Crossmatch 11/13/16 11/13/16 11/13/16 12:34 16:55 17:00 WBC RBC Hgb Hct MCV RDW Plt Count Lymph % (Auto) [place] % (Auto) [place] # Seg Neutrophils % Seg Neuts % (Manual) Lymphocytes % (Manual) Monocytes % (Manual) Basophils % (Manual) Nucleated RBC % Seg Neutrophils # Seg Neutrophils # Man Lymphocytes # (Manual) Monocytes # (Manual) Eosinophils # (Manual) Basophils # (Manual) PT INR APTT Heparin Anti-Xa Level POC ABG pH POC ABG pCO2 22.9 L POC ABG pO2 53 L Sodium Potassium Chloride Carbon Dioxide BUN Creatinine Glucose POC Glucose 109 H 122 H Calcium Phosphorus Magnesium AST Alkaline Phosphatase C-Reactive Protein Total Protein Albumin Lipase Vitamin B12 TSH Urine WBC (Auto) Urine Chloride Urine Total Protein Vancomycin Trough Crossmatch 11/13/16 11/14/16 11/14/16 23:33 04:42 04:42 WBC 11.7 H RBC 3.01 L Hgb 9.3 L Hct 28.9 L MCV RDW 16.5 H Plt Count Lymph % (Auto) [place] % (Auto) [place] # Seg Neutrophils % Seg Neuts % (Manual) 79.0 H Lymphocytes % (Manual) 10.0 L Monocytes % (Manual) Basophils % (Manual) Nucleated RBC % Seg Neutrophils # Seg Neutrophils # Man 9.2 H Lymphocytes # (Manual) Monocytes # (Manual) Eosinophils # (Manual) Basophils # (Manual) PT INR APTT Heparin Anti-Xa Level POC ABG pH POC ABG pCO2 POC ABG pO2 Sodium Potassium Chloride Carbon Dioxide 16 L BUN Creatinine Glucose 102 H POC Glucose 173 H Calcium 7.5 L Phosphorus Magnesium AST Alkaline Phosphatase C-Reactive Protein Total Protein Albumin Lipase Vitamin B12 TSH Urine WBC (Auto) Urine Chloride Urine Total Protein Vancomycin Trough Crossmatch 11/14/16 11/14/16 11/14/16 11:43 16:57 19:45 WBC RBC Hgb Hct MCV RDW Plt Count Lymph % (Auto) [place] % (Auto) [place] # Seg Neutrophils % Seg Neuts % (Manual) Lymphocytes % (Manual) Monocytes % (Manual) Basophils % (Manual) Nucleated RBC % Seg Neutrophils # Seg Neutrophils # Man Lymphocytes # (Manual) Monocytes # (Manual) Eosinophils # (Manual) Basophils # (Manual) PT INR APTT Heparin Anti-Xa Level 0.71 H POC ABG pH POC ABG pCO2 POC ABG pO2 Sodium Potassium Chloride Carbon Dioxide BUN Creatinine Glucose POC Glucose 130 H 209 H Calcium Phosphorus Magnesium AST Alkaline Phosphatase C-Reactive Protein Total Protein Albumin Lipase Vitamin B12 TSH Urine WBC (Auto) Urine Chloride Urine Total Protein Vancomycin Trough Crossmatch 11/14/16 11/15/16 11/16/16 23:43 23:47 06:11 WBC RBC Hgb Hct MCV RDW Plt Count Lymph % (Auto) [place] % (Auto) [place] # Seg Neutrophils % Seg Neuts % (Manual) Lymphocytes % (Manual) Monocytes % (Manual) Basophils % (Manual) Nucleated RBC % Seg Neutrophils # Seg Neutrophils # Man Lymphocytes # (Manual) Monocytes # (Manual) Eosinophils # (Manual) Basophils # (Manual) PT INR APTT Heparin Anti-Xa Level POC ABG pH POC ABG pCO2 POC ABG pO2 Sodium Potassium Chloride Carbon Dioxide BUN Creatinine Glucose POC Glucose 167 H 114 H 125 H Calcium Phosphorus Magnesium AST Alkaline Phosphatase C-Reactive Protein Total Protein Albumin Lipase Vitamin B12 TSH Urine WBC (Auto) Urine Chloride Urine Total Protein Vancomycin Trough Crossmatch 11/16/16 11/16/16 11/16/16 09:05 09:05 09:05 WBC RBC 2.53 L Hgb 8.0 L Hct 23.7 L MCV RDW 15.9 H Plt Count Lymph % (Auto) [place] % (Auto) [place] # Seg Neutrophils % Seg Neuts % (Manual) Lymphocytes % (Manual) Monocytes % (Manual) Basophils % (Manual) Nucleated RBC % Seg Neutrophils # Seg Neutrophils # Man Lymphocytes # (Manual) Monocytes # (Manual) Eosinophils # (Manual) Basophils # (Manual) PT INR APTT Heparin Anti-Xa Level POC ABG pH POC ABG pCO2 POC ABG pO2 Sodium Potassium 2.5 L* D Chloride Carbon Dioxide 19 L BUN 5 L Creatinine Glucose 103 H POC Glucose Calcium 6.6 L Phosphorus Magnesium 1.3 L AST Alkaline Phosphatase C-Reactive Protein Total Protein Albumin Lipase Vitamin B12 TSH Urine WBC (Auto) Urine Chloride Urine Total Protein Vancomycin Trough Crossmatch 11/16/16 11/16/16 11/16/16 12:15 13:00 14:45 WBC RBC Hgb Hct MCV RDW Plt Count Lymph % (Auto) [place] % (Auto) [place] # Seg Neutrophils % Seg Neuts % (Manual) Lymphocytes % (Manual) Monocytes % (Manual) Basophils % (Manual) Nucleated RBC % Seg Neutrophils # Seg Neutrophils # Man Lymphocytes # (Manual) Monocytes # (Manual) Eosinophils # (Manual) Basophils # (Manual) PT 19.1 H INR 1.61 H APTT Heparin Anti-Xa Level POC ABG pH 7.479 H POC ABG pCO2 23.6 L POC ABG pO2 Sodium Potassium Chloride Carbon Dioxide BUN Creatinine Glucose POC Glucose 129 H Calcium Phosphorus Magnesium AST Alkaline Phosphatase C-Reactive Protein Total Protein Albumin Lipase Vitamin B12 TSH Urine WBC (Auto) Urine Chloride Urine Total Protein Vancomycin Trough Crossmatch 11/16/16 11/17/16 11/17/16 17:43 00:30 04:32 WBC RBC Hgb Hct MCV RDW Plt Count Lymph % (Auto) [place] % (Auto) [place] # Seg Neutrophils % Seg Neuts % (Manual) Lymphocytes % (Manual) Monocytes % (Manual) Basophils % (Manual) Nucleated RBC % Seg Neutrophils # Seg Neutrophils # Man Lymphocytes # (Manual) Monocytes # (Manual) Eosinophils # (Manual) Basophils # (Manual) PT INR APTT Heparin Anti-Xa Level POC ABG pH POC ABG pCO2 POC ABG pO2 Sodium Potassium Chloride Carbon Dioxide 18 L BUN Creatinine Glucose 127 H POC Glucose 224 H 259 H Calcium 7.5 L Phosphorus Magnesium AST Alkaline Phosphatase C-Reactive Protein Total Protein Albumin Lipase Vitamin B12 TSH Urine WBC (Auto) Urine Chloride Urine Total Protein Vancomycin Trough Crossmatch 11/17/16 11/17/16 11/17/16 05:42 08:34 12:19 WBC RBC 2.85 L Hgb 8.9 L Hct 26.5 L MCV RDW 16.2 H Plt Count Lymph % (Auto) [place] % (Auto) [place] # Seg Neutrophils % Seg Neuts % (Manual) Lymphocytes % (Manual) Monocytes % (Manual) Basophils % (Manual) Nucleated RBC % Seg Neutrophils # Seg Neutrophils # Man Lymphocytes # (Manual) Monocytes # (Manual) Eosinophils # (Manual) Basophils # (Manual) PT INR APTT Heparin Anti-Xa Level POC ABG pH POC ABG pCO2 POC ABG pO2 Sodium Potassium Chloride Carbon Dioxide BUN Creatinine Glucose POC Glucose 118 H 264 H Calcium Phosphorus Magnesium AST Alkaline Phosphatase C-Reactive Protein Total Protein Albumin Lipase Vitamin B12 TSH Urine WBC (Auto) Urine Chloride Urine Total Protein Vancomycin Trough Crossmatch 11/17/16 11/17/16 11/18/16 16:52 23:44 04:53 WBC RBC Hgb Hct MCV RDW Plt Count Lymph % (Auto) [place] % (Auto) [place] # Seg Neutrophils % Seg Neuts % (Manual) Lymphocytes % (Manual) Monocytes % (Manual) Basophils % (Manual) Nucleated RBC % Seg Neutrophils # Seg Neutrophils # Man Lymphocytes # (Manual) Monocytes # (Manual) Eosinophils # (Manual) Basophils # (Manual) PT INR APTT Heparin Anti-Xa Level POC ABG pH POC ABG pCO2 POC ABG pO2 Sodium Potassium Chloride Carbon Dioxide BUN Creatinine Glucose POC Glucose 256 H 109 H 287 H Calcium Phosphorus Magnesium AST Alkaline Phosphatase C-Reactive Protein Total Protein Albumin Lipase Vitamin B12 TSH Urine WBC (Auto) Urine Chloride Urine Total Protein Vancomycin Trough Crossmatch 11/18/16 11/18/16 11/18/16 05:31 05:45 05:45 WBC RBC Hgb Hct MCV RDW Plt Count Lymph % (Auto) [place] % (Auto) [place] # Seg Neutrophils % Seg Neuts % (Manual) Lymphocytes % (Manual) Monocytes % (Manual) Basophils % (Manual) Nucleated RBC % Seg Neutrophils # Seg Neutrophils # Man Lymphocytes # (Manual) Monocytes # (Manual) Eosinophils # (Manual) Basophils # (Manual) PT 20.1 H INR 1.72 H APTT 131.1 H* Heparin Anti-Xa Level 0.18 L POC ABG pH 7.252 L POC ABG pCO2 32.0 L POC ABG pO2 Sodium Potassium Chloride 107.1 H Carbon Dioxide 17 L BUN Creatinine Glucose 284 H POC Glucose Calcium 7.2 L Phosphorus Magnesium AST Alkaline Phosphatase C-Reactive Protein Total Protein 5.5 L Albumin 2.1 L Lipase Vitamin B12 TSH Urine WBC (Auto) Urine Chloride Urine Total Protein Vancomycin Trough Crossmatch 11/18/16 11/18/16 11/18/16 05:45 09:17 12:06 WBC 13.3 H RBC 3.07 L Hgb 9.2 L Hct 29.5 L MCV RDW 16.9 H Plt Count Lymph % (Auto) 11.0 L [place] % (Auto) [place] # Seg Neutrophils % 82.9 H Seg Neuts % (Manual) Lymphocytes % (Manual) Monocytes % (Manual) Basophils % (Manual) Nucleated RBC % Seg Neutrophils # 11.0 H Seg Neutrophils # Man Lymphocytes # (Manual) Monocytes # (Manual) Eosinophils # (Manual) Basophils # (Manual) PT INR APTT Heparin Anti-Xa Level POC ABG pH POC ABG pCO2 24.3 L POC ABG pO2 79 L Sodium Potassium Chloride Carbon Dioxide BUN Creatinine Glucose POC Glucose 433 H Calcium Phosphorus Magnesium AST Alkaline Phosphatase C-Reactive Protein Total Protein Albumin Lipase Vitamin B12 TSH Urine WBC (Auto) Urine Chloride Urine Total Protein Vancomycin Trough Crossmatch 04/02/17 04/02/17 04/02/17 12:09 13:00 17:22 WBC 12.6 H RBC 2.79 L Hgb 8.6 L Hct 26.6 L MCV RDW 17.0 H Plt Count Lymph % (Auto) [place] % (Auto) [place] # Seg Neutrophils % Seg Neuts % (Manual) 90.0 H Lymphocytes % (Manual) 8.0 L Monocytes % (Manual) Basophils % (Manual) Nucleated RBC % Seg Neutrophils # Seg Neutrophils # Man 11.3 H Lymphocytes # (Manual) 1.0 L Monocytes # (Manual) Eosinophils # (Manual) Basophils # (Manual) PT INR APTT Heparin Anti-Xa Level POC ABG pH POC ABG pCO2 POC ABG pO2 Sodium Potassium Chloride Carbon Dioxide BUN Creatinine Glucose POC Glucose 429 H 297 H Calcium Phosphorus Magnesium AST Alkaline Phosphatase C-Reactive Protein Total Protein Albumin Lipase Vitamin B12 TSH Urine WBC (Auto) Urine Chloride Urine Total Protein Vancomycin Trough Crossmatch 11/18/16 11/19/16 11/19/16 23:27 04:30 04:30 WBC RBC 2.92 L Hgb 8.8 L Hct 27.0 L MCV RDW 16.6 H Plt Count Lymph % (Auto) [place] % (Auto) [place] # Seg Neutrophils % Seg Neuts % (Manual) Lymphocytes % (Manual) Monocytes % (Manual) Basophils % (Manual) Nucleated RBC % Seg Neutrophils # Seg Neutrophils # Man Lymphocytes # (Manual) Monocytes # (Manual) Eosinophils # (Manual) Basophils # (Manual) PT INR APTT Heparin Anti-Xa Level POC ABG pH POC ABG pCO2 POC ABG pO2 Sodium Potassium 3.0 L Chloride 107.9 H Carbon Dioxide 20 L BUN Creatinine Glucose 231 H POC Glucose 268 H Calcium 7.1 L Phosphorus Magnesium AST Alkaline Phosphatase C-Reactive Protein Total Protein 5.5 L Albumin 2.1 L Lipase Vitamin B12 TSH Urine WBC (Auto) Urine Chloride Urine Total Protein Vancomycin Trough Crossmatch 11/19/16 11/19/16 11/19/16 04:40 06:40 10:00 WBC RBC Hgb Hct MCV RDW Plt Count Lymph % (Auto) [place] % (Auto) [place] # Seg Neutrophils % Seg Neuts % (Manual) Lymphocytes % (Manual) Monocytes % (Manual) Basophils % (Manual) Nucleated RBC % Seg Neutrophils # Seg Neutrophils # Man Lymphocytes # (Manual) Monocytes # (Manual) Eosinophils # (Manual) Basophils # (Manual) PT INR APTT Heparin Anti-Xa Level POC ABG pH POC ABG pCO2 POC ABG pO2 Sodium Potassium Chloride Carbon Dioxide BUN Creatinine Glucose POC Glucose 267 H 244 H Calcium Phosphorus Magnesium 1.4 L AST Alkaline Phosphatase C-Reactive Protein Total Protein Albumin Lipase Vitamin B12 TSH Urine WBC (Auto) Urine Chloride Urine Total Protein Vancomycin Trough Crossmatch 11/19/16 11/19/16 11/19/16 12:08 18:10 23:40 WBC RBC Hgb Hct MCV RDW Plt Count Lymph % (Auto) [place] % (Auto) [place] # Seg Neutrophils % Seg Neuts % (Manual) Lymphocytes % (Manual) Monocytes % (Manual) Basophils % (Manual) Nucleated RBC % Seg Neutrophils # Seg Neutrophils # Man Lymphocytes # (Manual) Monocytes # (Manual) Eosinophils # (Manual) Basophils # (Manual) PT INR APTT Heparin Anti-Xa Level POC ABG pH POC ABG pCO2 POC ABG pO2 Sodium Potassium Chloride Carbon Dioxide BUN Creatinine Glucose POC Glucose 254 H 265 H 197 H Calcium Phosphorus Magnesium AST Alkaline Phosphatase C-Reactive Protein Total Protein Albumin Lipase Vitamin B12 TSH Urine WBC (Auto) Urine Chloride Urine Total Protein Vancomycin Trough Crossmatch 11/20/16 11/20/16 11/20/16 05:00 05:44 11:33 WBC RBC Hgb Hct MCV RDW Plt Count Lymph % (Auto) [place] % (Auto) [place] # Seg Neutrophils % Seg Neuts % (Manual) Lymphocytes % (Manual) Monocytes % (Manual) Basophils % (Manual) Nucleated RBC % Seg Neutrophils # Seg Neutrophils # Man Lymphocytes # (Manual) Monocytes # (Manual) Eosinophils # (Manual) Basophils # (Manual) PT INR APTT Heparin Anti-Xa Level POC ABG pH POC ABG pCO2 POC ABG pO2 Sodium Potassium 3.4 L Chloride 107.4 H Carbon Dioxide 20 L BUN Creatinine Glucose 140 H POC Glucose 163 H 108 H Calcium 7.2 L Phosphorus Magnesium AST Alkaline Phosphatase C-Reactive Protein Total Protein Albumin Lipase Vitamin B12 TSH Urine WBC (Auto) Urine Chloride Urine Total Protein Vancomycin Trough Crossmatch 11/20/16 11/20/16 11/20/16 13:03 16:45 23:26 WBC RBC Hgb Hct MCV RDW Plt Count Lymph % (Auto) [place] % (Auto) [place] # Seg Neutrophils % Seg Neuts % (Manual) Lymphocytes % (Manual) Monocytes % (Manual) Basophils % (Manual) Nucleated RBC % Seg Neutrophils # Seg Neutrophils # Man Lymphocytes # (Manual) Monocytes # (Manual) Eosinophils # (Manual) Basophils # (Manual) PT INR APTT Heparin Anti-Xa Level POC ABG pH POC ABG pCO2 POC ABG pO2 Sodium Potassium Chloride Carbon Dioxide BUN Creatinine Glucose POC Glucose 113 H 168 H Calcium Phosphorus Magnesium AST Alkaline Phosphatase C-Reactive Protein Total Protein Albumin Lipase Vitamin B12 TSH Urine WBC (Auto) Urine Chloride Urine Total Protein Vancomycin Trough 45.8 H Crossmatch 11/21/16 11/21/16 11/21/16 05:00 05:27 09:50 WBC RBC Hgb Hct MCV RDW Plt Count Lymph % (Auto) [place] % (Auto) [place] # Seg Neutrophils % Seg Neuts % (Manual) Lymphocytes % (Manual) Monocytes % (Manual) Basophils % (Manual) Nucleated RBC % Seg Neutrophils # Seg Neutrophils # Man Lymphocytes # (Manual) Monocytes # (Manual) Eosinophils # (Manual) Basophils # (Manual) PT INR APTT Heparin Anti-Xa Level POC ABG pH POC ABG pCO2 POC ABG pO2 Sodium 133 L D Potassium Chloride Carbon Dioxide 19 L BUN Creatinine Glucose 280 H POC Glucose 222 H Calcium 7.4 L Phosphorus Magnesium AST Alkaline Phosphatase C-Reactive Protein Total Protein Albumin Lipase Vitamin B12 TSH Urine WBC (Auto) Urine Chloride Urine Total Protein Vancomycin Trough 30.4 H Crossmatch 11/21/16 11/21/16 11/21/16 12:36 17:17 18:34 WBC RBC Hgb Hct MCV RDW Plt Count Lymph % (Auto) [place] % (Auto) [place] # Seg Neutrophils % Seg Neuts % (Manual) Lymphocytes % (Manual) Monocytes % (Manual) Basophils % (Manual) Nucleated RBC % Seg Neutrophils # Seg Neutrophils # Man Lymphocytes # (Manual) Monocytes # (Manual) Eosinophils # (Manual) Basophils # (Manual) PT INR APTT Heparin Anti-Xa Level POC ABG pH POC ABG pCO2 POC ABG pO2 Sodium Potassium Chloride Carbon Dioxide BUN Creatinine Glucose POC Glucose 306 H 339 H 318 H Calcium Phosphorus Magnesium AST Alkaline Phosphatase C-Reactive Protein Total Protein Albumin Lipase Vitamin B12 TSH Urine WBC (Auto) Urine Chloride Urine Total Protein Vancomycin Trough Crossmatch 11/21/16 11/22/16 11/22/16 23:16 07:19 11:49 WBC 11.1 H RBC 2.60 L Hgb 7.8 L Hct 24.4 L MCV RDW 16.3 H Plt Count Lymph % (Auto) [place] % (Auto) [place] # Seg Neutrophils % 76.8 H Seg Neuts % (Manual) Lymphocytes % (Manual) Monocytes % (Manual) Basophils % (Manual) Nucleated RBC % Seg Neutrophils # 8.5 H Seg Neutrophils # Man Lymphocytes # (Manual) Monocytes # (Manual) Eosinophils # (Manual) Basophils # (Manual) PT INR APTT Heparin Anti-Xa Level POC ABG pH POC ABG pCO2 POC ABG pO2 Sodium Potassium Chloride Carbon Dioxide BUN Creatinine Glucose POC Glucose 286 H 371 H Calcium Phosphorus Magnesium AST Alkaline Phosphatase C-Reactive Protein Total Protein Albumin Lipase Vitamin B12 TSH Urine WBC (Auto) Urine Chloride Urine Total Protein Vancomycin Trough Crossmatch 11/22/16 11/22/16 11/22/16 11:50 11:50 17:34 WBC RBC Hgb Hct MCV RDW Plt Count Lymph % (Auto) [place] % (Auto) [place] # Seg Neutrophils % Seg Neuts % (Manual) Lymphocytes % (Manual) Monocytes % (Manual) Basophils % (Manual) Nucleated RBC % Seg Neutrophils # Seg Neutrophils # Man Lymphocytes # (Manual) Monocytes # (Manual) Eosinophils # (Manual) Basophils # (Manual) PT INR APTT Heparin Anti-Xa Level POC ABG pH POC ABG pCO2 POC ABG pO2 Sodium 130 L Potassium Chloride Carbon Dioxide 19 L BUN 20 H Creatinine Glucose 266 H POC Glucose 262 H 284 H Calcium 7.2 L Phosphorus Magnesium AST Alkaline Phosphatase C-Reactive Protein Total Protein Albumin Lipase Vitamin B12 TSH Urine WBC (Auto) Urine Chloride Urine Total Protein Vancomycin Trough Crossmatch 11/22/16 11/22/16 11/22/16 17:43 20:04 23:38 WBC RBC Hgb Hct MCV RDW Plt Count Lymph % (Auto) [place] % (Auto) [place] # Seg Neutrophils % Seg Neuts % (Manual) Lymphocytes % (Manual) Monocytes % (Manual) Basophils % (Manual) Nucleated RBC % Seg Neutrophils # Seg Neutrophils # Man Lymphocytes # (Manual) Monocytes # (Manual) Eosinophils # (Manual) Basophils # (Manual) PT INR APTT Heparin Anti-Xa Level POC ABG pH 7.492 H POC ABG pCO2 23.2 L POC ABG pO2 60 L Sodium Potassium Chloride Carbon Dioxide BUN Creatinine Glucose POC Glucose 261 H 253 H Calcium Phosphorus Magnesium AST Alkaline Phosphatase C-Reactive Protein Total Protein Albumin Lipase Vitamin B12 TSH Urine WBC (Auto) Urine Chloride Urine Total Protein Vancomycin Trough Crossmatch 11/23/16 11/23/16 06:27 08:20 WBC RBC Hgb 8.2 L Hct 24.9 L MCV RDW Plt Count Lymph % (Auto) [place] % (Auto) [place] # Seg Neutrophils % Seg Neuts % (Manual) Lymphocytes % (Manual) Monocytes % (Manual) Basophils % (Manual) Nucleated RBC % Seg Neutrophils # Seg Neutrophils # Man Lymphocytes # (Manual) Monocytes # (Manual) Eosinophils # (Manual) Basophils # (Manual) PT INR APTT Heparin Anti-Xa Level POC ABG pH POC ABG pCO2 POC ABG pO2 Sodium Potassium Chloride Carbon Dioxide BUN Creatinine Glucose POC Glucose 333 H Calcium Phosphorus Magnesium AST Alkaline Phosphatase C-Reactive Protein Total Protein Albumin Lipase Vitamin B12 TSH Urine WBC (Auto) Urine Chloride Urine Total Protein Vancomycin Trough Crossmatch Allied health notes reviewed: RT
[2016-11-23] MEDS ORDERED: LEVEMIR SUB-Q ONE (16:00)
--- NOTE | 2016-11-23 20:19 | Progress Note ---
Assessment and Plan Assessment and plan: 66-year-old woman who presented with lethargy and altered mental status she deteriorated and was intubated and in emergency room, she was managed for DKA and she also developed sepsis due to UTI and right lower extremity ischemia * S/P cardiopulomary arrest. * A/C respiratory failure with hypercapenia * Seizure-Per family prior hx * DM * Hyponatremia * acute ischemia of right lower ext due to SFA thrombosis- s/p right BKA * LUCY likely vasomotor nephropathy-resolved * Sepsis- Multifactorial * Anemia of chronic disease * Hematuria * Metabolic acidosis * Severe Hypokalemia-RESOLVED Plan: * s/p EEG - findings consistent with anoxic encephalopathy and cortical irritability * Neurology notes intact brain stem * Monitor Na level * Family updated about the very real possibility of not having any meaningful neurological recovery. all questions answered. Family meeting with daughter, and grandchild with greatgrand child in attendance. Case mangement and high school social studies teacher and bedside nurse were also present. * Poor prognosis. * MRI brain with no gross abnormality * adjust insulin therapy * Highly concerning for anoxic brain injury. * Neurologic input noted. EEG abnormal. * Heparin had to be held due to the risk associated considering recent CPR with chest compressions. * vascular following up on right BKA remains poor prognosis and likely will need a conversion to AKA. Holding off heparin which is necessary at this time also worsens that prescription. * Continue subcutaneous insulin and electrolyte replacement * Patient unfortunately has poor prognosis has been unable to be weaned from the vent prior to the cardiopulmonary arrest was doing well on spontaneous breathing and event. * Antibiotics per ID * Continue Cardizem and beta juan antonio * Monitor electrolytes and hemoglobin. * continue dilantin * DVT and GI prophylaxis 35 mins critical care time. History Interval history: Patient seen and examined, remains on vent support, still not following commands. at bedside, no adverse event reported by nursing staff. Hospitalist Physical - Physical exam Narrative exam: VITAL SIGNS: Reviewed. GENERAL: vent support Vital signs as documented. HEAD: No signs of head trauma. EYES: Pupils are equal. EARS: Unable to assess MOUTH: missing dentition NECK: Trach CHEST: Chest with diminshed CARDIAC: Regular rate and rhythm. S1 and S2, without murmurs, gallops, or rubs. VASCULAR: trace Edema. Peripheral pulses left lower ext ABDOMEN: Soft, No rebound or guarding, and no masses palpated. Bowel Sounds normal. MUSCULOSKELETAL: BKA right lower extremity dressing in place. Some necrosis to the lateral aspect. NEUROLOGIC EXAM: not following commands, opens and closes eyes none purposeful PSYCHIATRIC: unable to assess SKIN: dressing to right lower ext stump, superficial necrosis - Constitutional Vitals: Temp Pulse Resp BP Pulse Ox 99.9 F H 121 H 24 130/74 100 11/23/16 19:54 11/23/16 19:30 11/23/16 19:30 11/23/16 19:30 11/23/16 19:30 General appearance: Present: no acute distress Results - Labs CBC & Chem 7: 11/23/16 08:20 11/22/16 11:50 Labs: Laboratory Last Values WBC 11.1 K/mm3 (4.5-11.0) H 11/22/16 11:49 RBC 2.60 M/mm3 (3.65-5.03) L 11/22/16 11:49 Hgb 8.2 gm/dl (10.1-14.3) L 11/23/16 08:20 Hct 24.9 % (30.3-42.9) L 11/23/16 08:20 MCV 94 fl (79-97) 11/22/16 11:49 MCH 30 pg (28-32) 11/22/16 11:49 MCHC 32 % (30-34) 11/22/16 11:49 RDW 16.3 % (13.2-15.2) H 11/22/16 11:49 Plt Count 262 K/mm3 (140-440) 11/22/16 11:49 Lymph % (Auto) 14.8 % (13.4-35.0) 11/22/16 11:49 [place] % (Auto) 6.7 % (0.0-7.3) 11/22/16 11:49 Eos % (Auto) 1.1 % (0.0-4.3) 11/22/16 11:49 Baso % (Auto) 0.6 % (0.0-1.8) 11/22/16 11:49 Lymph # 1.6 K/mm3 (1.2-5.4) 11/22/16 11:49 [place] # 0.7 K/mm3 (0.0-0.8) 11/22/16 11:49 Eos # 0.1 K/mm3 (0.0-0.4) 11/22/16 11:49 Baso # 0.1 K/mm3 (0.0-0.1) 11/22/16 11:49 Add Manual Diff Complete 11/18/16 13:00 Total Counted 100 11/18/16 13:00 Seg Neutrophils % 76.8 % (40.0-70.0) H 11/22/16 11:49 Seg Neuts % (Manual) 90.0 % (40.0-70.0) H 11/18/16 13:00 Band Neutrophils % 0 % 11/18/16 13:00 Lymphocytes % (Manual) 8.0 % (13.4-35.0) L 11/18/16 13:00 Reactive Lymphs % (Man) 0 % 11/18/16 13:00 Monocytes % (Manual) 2.0 % (0.0-7.3) 11/18/16 13:00 Eosinophils % (Manual) 0 % (0.0-4.3) 11/18/16 13:00 Basophils % (Manual) 0 % (0.0-1.8) 11/18/16 13:00 Metamyelocytes % 0 % 11/18/16 13:00 Myelocytes % 0 % 11/18/16 13:00 Promyelocytes % 0 % 11/18/16 13:00 Blast Cells % 0 % 11/18/16 13:00 Nucleated RBC % Not Reportable 11/18/16 13:00 Seg Neutrophils # 8.5 K/mm3 (1.8-7.7) H 11/22/16 11:49 Seg Neutrophils # Man 11.3 K/mm3 (1.8-7.7) H 11/18/16 13:00 Band Neutrophils # 0.0 K/mm3 11/18/16 13:00 Lymphocytes # (Manual) 1.0 K/mm3 (1.2-5.4) L 11/18/16 13:00 Abs React Lymphs (Man) 0.0 K/mm3 11/18/16 13:00 Monocytes # (Manual) 0.3 K/mm3 (0.0-0.8) 11/18/16 13:00 Eosinophils # (Manual) 0.0 K/mm3 (0.0-0.4) 11/18/16 13:00 Basophils # (Manual) 0.0 K/mm3 (0.0-0.1) 11/18/16 13:00 Metamyelocytes # 0.0 K/mm3 11/18/16 13:00 Myelocytes # 0.0 K/mm3 11/18/16 13:00 Promyelocytes # 0.0 K/mm3 11/18/16 13:00 Blast Cells # 0.0 K/mm3 11/18/16 13:00 Pathologist Review 10/29/16 09:30 WBC Morphology Not Reportable 11/18/16 13:00 Hypersegmented Neuts Not Reportable 11/18/16 13:00 Hyposegmented Neuts Not Reportable 11/18/16 13:00 Hypogranular Neuts Not Reportable 11/18/16 13:00 Hypersegmented Polys TNR 10/17/16 07:08 Smudge Cells Not Reportable 11/18/16 13:00 Toxic Granulation Not Reportable 11/18/16 13:00 Toxic Vacuolation Not Reportable 11/18/16 13:00 Dohle Bodies Not Reportable 11/18/16 13:00 Pelger-Huet Anomaly Not Reportable 11/18/16 13:00 [place] Rods Not Reportable 11/18/16 13:00 Platelet Estimate Consistent w auto 11/18/16 13:00 Clumped Platelets Not Reportable 11/18/16 13:00 Plt Clumps, EDTA Not Reportable 11/18/16 13:00 Large Platelets Not Reportable 11/18/16 13:00 Giant Platelets Not Reportable 11/18/16 13:00 Platelet Satelliting Not Reportable 11/18/16 13:00 Plt Morphology Comment Not Reportable 11/18/16 13:00 RBC Morphology Not Reportable 11/18/16 13:00 Dimorphic RBCs Not Reportable 11/18/16 13:00 Polychromasia Not Reportable 11/18/16 13:00 Hypochromasia Not Reportable 11/18/16 13:00 Poikilocytosis Not Reportable 11/18/16 13:00 Basophilic Stippling TNR 10/17/16 07:08 Anisocytosis 1+ 11/18/16 13:00 Microcytosis Not Reportable 11/18/16 13:00 Macrocytosis Not Reportable 11/18/16 13:00 Spherocytes Not Reportable 11/18/16 13:00 Pappenheimer Bodies Not Reportable 11/18/16 13:00 Sickle Cells Not Reportable 11/18/16 13:00 Target Cells Not Reportable 11/18/16 13:00 Tear Drop Cells Not Reportable 11/18/16 13:00 Ovalocytes Not Reportable 11/18/16 13:00 Stomatocytes Few 11/03/16 00:05 Helmet Cells Not Reportable 11/18/16 13:00 [place] Bodies Not Reportable 11/18/16 13:00 [place] Rings Not Reportable 11/18/16 13:00 [place] Cells Not Reportable 11/18/16 13:00 Bite Cells Not Reportable 11/18/16 13:00 Crenated Cell Not Reportable 11/18/16 13:00 Elliptocytes Not Reportable 11/18/16 13:00 Acanthocytes (Spur) Not Reportable 11/18/16 13:00 Rouleaux Not Reportable 11/18/16 13:00 Hemoglobin C Crystals Not Reportable 11/18/16 13:00 Schistocytes Not Reportable 11/18/16 13:00 Malaria parasites Not Reportable 11/18/16 13:00 David Bodies Not Reportable 11/18/16 13:00 Hem Pathologist Commnt No 11/18/16 13:00 PT 20.1 Sec. (12.2-14.9) H 11/18/16 05:45 INR 1.72 (0.87-1.13) H 11/18/16 05:45 APTT 131.1 Sec. (24.2-36.6) H* 11/18/16 05:45 Heparin Anti-Xa Level 0.51 U.I./ml (0.3-0.7) 11/18/16 11:16 POC ABG pH 7.492 (7.35-7.45) H 11/22/16 20:04 POC ABG pCO2 23.2 (35-45) L 11/22/16 20:04 POC ABG pO2 60 (80-105) L 11/22/16 20:04 POC ABG HCO3 17.8 11/22/16 20:04 POC ABG Total CO2 18 11/22/16 20:04 POC ABG O2 Sat 93 11/22/16 20:04 POC ABG Base Excess -6 11/22/16 20:04 VBG pH 7.020 (7.320-7.420) L* 10/13/16 04:22 FiO2 35 % 11/22/16 20:04 Sodium 130 mmol/L (137-145) L 11/22/16 11:50 Potassium 3.8 mmol/L (3.6-5.0) 11/22/16 11:50 Chloride 99.5 mmol/L (98-107) 11/22/16 11:50 Carbon Dioxide 19 mmol/L (22-30) L 11/22/16 11:50 Anion Gap 15 mmol/L 11/22/16 11:50 BUN 20 mg/dL (7-17) H 11/22/16 11:50 Creatinine 1.1 mg/dL (0.7-1.2) 11/22/16 11:50 Estimated GFR > 60 ml/min 11/22/16 11:50 BUN/Creatinine Ratio 18.18 % 11/22/16 11:50 Glucose 266 mg/dL (65-100) H 11/22/16 11:50 POC Glucose 333 (70-105) H 11/23/16 06:27 Osmolality 332 Mosm/kg 10/14/16 07:03 Lactic Acid 1.8 mmol/L (0.7-2.0) 10/14/16 07:03 Calcium 7.2 mg/dL (8.4-10.2) L 11/22/16 11:50 Phosphorus 2.7 mg/dL (2.5-4.5) D 10/21/16 Unknown Magnesium 2.0 mg/dL (1.7-2.3) 11/20/16 05:00 Total Bilirubin 0.2 mg/dL (0.1-1.2) 11/19/16 04:30 AST 9 units/L (5-40) 11/19/16 04:30 ALT 7 units/L (7-56) 11/19/16 04:30 Alkaline Phosphatase 82 units/L (35-129) 11/19/16 04:30 Ammonia 35.0 umol/L (25-60) 10/13/16 05:40 Total Creatine Kinase 107 units/L (30-135) 10/13/16 04:22 CK-MB (CK-2) 3.1 ng/mL (0.0-4.0) 10/13/16 04:22 CK-MB (CK-2) Rel Index 2.8 (0-4) 10/13/16 04:22 Troponin T < 0.010 ng/mL (0.00-0.029) 10/14/16 18:55 C-Reactive Protein 10.50 mg/dL (0.00-1.30) H 10/13/16 16:14 Total Protein 5.5 g/dL (6.3-8.2) L 11/19/16 04:30 Albumin 2.1 g/dL (3.9-5) L 11/19/16 04:30 Albumin/Globulin Ratio 0.6 % 11/19/16 04:30 Amylase 30 units/L (27-131) 11/10/16 04:30 Lipase 41 units/L (13-60) 11/10/16 04:30 Vitamin B12 976.8 pg/mL (211-911) H 10/22/16 10:25 TSH 0.162 mlU/mL (0.270-4.200) L 10/22/16 14:50 Free T4 0.77 ng/dL (0.76-1.46) 10/22/16 14:50 Urine Color Yellow (Yellow) 11/14/16 19:39 Urine Turbidity Cloudy (Clear) 11/14/16 19:39 Urine pH 6.0 (5.0-7.0) 11/14/16 19:39 Ur Specific [place] 1.010 (1.003-1.030) 11/14/16 19:39 Urine Protein 30 mg/dl mg/dL (Negative) 11/14/16 19:39 Urine Glucose (UA) 50 mg/dL (Negative) 11/14/16 19:39 Urine Ketones 20 mg/dL (Negative) 11/14/16 19:39 Urine Blood Lg (Negative) 11/14/16 19:39 Urine Nitrite Neg (Negative) 11/14/16 19:39 Urine Bilirubin Neg (Negative) 11/14/16 19:39 Urine Urobilinogen < 2.0 mg/dL (<2.0) 11/14/16 19:39 Ur Leukocyte Esterase Sm (Negative) 11/14/16 19:39 Urine WBC (Auto) 3.0 /HPF (0.0-6.0) 11/14/16 19:39 Urine RBC (Auto) > 182.0 /HPF (0.0-6.0) 11/14/16 19:39 U Epithel Cells (Auto) 1.0 /HPF (0-13.0) 10/15/16 11:05 Urine Bacteria (Auto) 1+ /HPF (Negative) 11/14/16 19:39 Urine Mucus Few /HPF 11/14/16 19:39 Urine Yeast ([place]) 2+ /HPF 10/15/16 11:05 Urine Osmolality 487 Mosm/kg 10/13/16 Unknown Urine Creatinine < 4.2 mg/dL (0.1-20.0) 10/13/16 Unknown Protein/Creatinin Ratio 0.00 10/13/16 Unknown Urine Sodium 10 mEq/L 10/13/16 Unknown Urine Potassium 1.00 mEq/L 10/13/16 Unknown Urine Chloride 10.0 mEq/L (110-250) L 10/13/16 Unknown Urine Total Protein < 4 mg/dL (5-11.8) L 10/13/16 Unknown Vancomycin Trough 30.4 ug/mL (5.0-20.0) H 11/21/16 09:50 Random Vancomycin 20.8 ug/mL (0-40.0) 11/23/16 04:00 Ketones 107.3 mg/dL (0.2-2.8) H 10/13/16 04:22 Blood Type A POSITIVE 11/03/16 18:01 Antibody Screen Negative 11/03/16 18:01 Crossmatch See Detail 11/03/16 18:01
[2016-11-24] MEDS: FLAGYL 500 MG/100 ML 500 MG/100 ML BAG IV SCH ×4 (00:41→23:19)
[2016-11-24] MEDS: REGLAN IV SCH ×5 (00:42→23:20)
[2016-11-24] MEDS: LOPRESSOR PO SCH ×6 (00:44→23:21)
[2016-11-24 05:21] LABS: Hematocrit 26.1 % (30.3-42.9); Hemoglobin 8.4 gm/dl (10.1-14.3); Mean Corpuscular HGB Conc 32 % (30-34); Mean Corpuscular Hemoglobin 31 pg (28-32); Mean Corpuscular Volume 95 fl (79-97); Platelet Count 289 K/mm3 (140-440); Red Blood Count 2.74 M/mm3 (3.65-5.03); White Blood Count 9.9 K/mm3 (4.5-11.0)
[2016-11-24 05:35] LABS: Anion Gap 19 mmol/L; BUN/Creatinine Ratio 25.55; Blood Urea Nitrogen 23 mg/dL (7-17); Calcium 7.2 mg/dL (8.4-10.2); Carbon Dioxide 19 mmol/L (22-30); Chloride 99.3 mmol/L (98-107); Glucose 200 mg/dL (65-100); Potassium 3.8 mmol/L (3.6-5.0); Sodium 133 mmol/L (137-145)
[2016-11-24] MEDS: DILANTIN IV SCH ×3 (06:25→23:20)
[2016-11-24] MEDS: HEPARIN SUB-Q SCH ×3 (06:27→23:20)
[2016-11-24] MEDS ORDERED: LEVEMIR SUB-Q SCH (10:00)
[2016-11-24] MEDS: LEVEMIR SUB-Q SCH (10:00)
[2016-11-24] MEDS: PEPCID PO SCH ×2 (10:00→23:22)
--- NOTE | 2016-11-24 11:07 | Progress Note ---
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 weaning likelyhood even poorer - continue PSV trials as tolerated - continue to rest on AC qhs during wean (2) Altered mental status Current Visit: Yes Status: Acute Qualifiers: Altered mental status type: A Coma depth: C Coma timing: C Plan to address problem: - likely anoxic encephalopathy at this point - no active grand-mal seizures - seen by neurology and will follow their recommendations - reviewed EEG and MRI reports and appears overall prognosis guarded at best (3) LUCY (acute kidney injury) Current Visit: Yes Status: Acute Plan to address problem: - resolved - following I's & O's - tube feeds restarted and tolerating well so far (4) DKA (diabetic ketoacidoses) Current Visit: Yes Status: Acute Qualifiers: Diabetes mellitus type: D Diabetes mellitus complication detail: D Plan to address problem: - resolved - continue SSI - continue levemir but increase dose (5) Sepsis Current Visit: No Status: Acute Qualifiers: Sepsis type: S Plan to address problem: - complete anti-infectives per ID recs - follow clinically - trend lactate and CRP prn (6) Emesis Current Visit: Yes Status: Acute Qualifiers: Vomiting type: V Vomiting Intractability: V Nausea presence: N Plan to address problem: - continue increased reglan dose - reduced fentanyl dose and using other sedatives/anxiolytics (re: opiates and G.I. motility) - continue aspiration precautions - GI input appreciated - improved (7) Discharge planning issues Current Visit: No Status: Acute Plan to address problem: - cardiac arrest and potential anoxic encephalopathy makes prognosis more guarded now - LTAC evaluation ongoing ...for now remains critically ill on life sustaining treatments including MVS and at high risk for further deterioration including ...32' CCT Subjective Date of service: 11/24/16 Principal diagnosis: respiratory failure on mechanical ventilatory support, DKA Interval history: Seen and examined at bedside; 24 hour events reviewed; nursing and respiratory care staff consulted; no adverse overnight events reported to me; tolerated a few hours on PSV 20/5 so far; AMS is persistent but opens eyes to name calling now; nothing purposeful otherwise Objective Vital Signs - 12hr 11/23/16 11/24/16 11/24/16 23:30 00:00 00:07 Temperature 97.5 F L Pulse Rate 125 H 125 H Respiratory 38 H 32 H Rate Blood Pressure 125/72 123/65 O2 Sat by Pulse 99 99 Oximetry O2 Sat by Pulse 97 Oximetry [ Assessment] 11/24/16 11/24/16 11/24/16 00:30 00:44 01:00 Temperature Pulse Rate 124 H 124 H 123 H Respiratory 35 H 32 H Rate Blood Pressure 128/70 128/70 128/70 O2 Sat by Pulse 100 100 Oximetry O2 Sat by Pulse Oximetry [ Assessment] 11/24/16 11/24/16 11/24/16 01:09 01:30 02:00 Temperature Pulse Rate 122 H 121 H 121 H Respiratory 31 H 32 H Rate Blood Pressure 133/80 132/76 131/69 O2 Sat by Pulse 100 100 99 Oximetry O2 Sat by Pulse Oximetry [ Assessment] 11/24/16 11/24/16 11/24/16 02:30 03:00 03:12 Temperature Pulse Rate 121 H 121 H Respiratory 32 H 30 H 23 Rate Blood Pressure 129/79 135/77 O2 Sat by Pulse 99 100 Oximetry O2 Sat by Pulse Oximetry [ Assessment] 11/24/16 11/24/16 11/24/16 03:30 03:50 04:00 Temperature 97.5 F L Pulse Rate 77 80 80 Respiratory 35 H 25 H Rate Blood Pressure 120/65 120/65 128/73 O2 Sat by Pulse 100 100 100 Oximetry O2 Sat by Pulse Oximetry [ Assessment] 11/24/16 11/24/16 11/24/16 04:30 05:00 05:30 Temperature Pulse Rate 87 81 80 Respiratory 35 H 29 H 24 Rate Blood Pressure 133/80 132/70 128/66 O2 Sat by Pulse 100 96 96 Oximetry O2 Sat by Pulse Oximetry [ Assessment] 11/24/16 11/24/16 11/24/16 06:00 06:26 06:30 Temperature Pulse Rate 81 79 79 Respiratory 33 H 31 H Rate Blood Pressure 133/67 133/67 126/64 O2 Sat by Pulse 96 94 Oximetry O2 Sat by Pulse Oximetry [ Assessment] 11/24/16 11/24/16 11/24/16 07:00 07:45 07:50 Temperature Pulse Rate 77 74 Respiratory 28 H Rate Blood Pressure 138/66 131/67 O2 Sat by Pulse 94 95 Oximetry O2 Sat by Pulse 95 Oximetry [ Assessment] 11/24/16 07:55 Temperature 98.8 F Pulse Rate Respiratory Rate Blood Pressure O2 Sat by Pulse Oximetry O2 Sat by Pulse Oximetry [ Assessment] Constitutional: other (Patient S/P CPR. Patient likely has anoxic encephalopathy ) Eyes: non-icteric ENT: oropharynx moist Neck: supple, no lymphadenopathy Effort: mildly labored Ascultation: Bilateral: diminished breath sounds, rales Cardiovascular: regular rate and rhythm, other (tachycardia) Gastrointestinal: normoactive bowel sounds, soft, non-tender, non-distended Integumentary: normal Extremities: no cyanosis, no edema, no ischemia or petechiae, other (s/p right BKA) Neurologic: unable to assess, other (encephalopathic) Psychiatric: other (encephalopathic) CBC and BMP: 11/24/16 04:50 11/24/16 04:50 ABG, PT/INR, D-dimer: ABG POC ABG pH 7.492 (7.35-7.45) H 11/22/16 20:04 POC ABG pCO2 23.2 (35-45) L 11/22/16 20:04 POC ABG pO2 60 (80-105) L 11/22/16 20:04 POC ABG HCO3 17.8 11/22/16 20:04 POC ABG Total CO2 18 11/22/16 20:04 POC ABG O2 Sat 93 11/22/16 20:04 PT/INR, D-dimer PT 20.1 Sec. (12.2-14.9) H 11/18/16 05:45 INR 1.72 (0.87-1.13) H 11/18/16 05:45 Abnormal lab findings: Abnormal Labs 10/13/16 10/13/16 10/13/16 06:38 06:38 07:23 WBC RBC Hgb Hct MCV RDW Plt Count Lymph % (Auto) [place] % (Auto) [place] # Seg Neutrophils % Seg Neuts % (Manual) Lymphocytes % (Manual) Monocytes % (Manual) Basophils % (Manual) Nucleated RBC % Seg Neutrophils # Seg Neutrophils # Man Lymphocytes # (Manual) Monocytes # (Manual) Eosinophils # (Manual) Basophils # (Manual) PT INR APTT Heparin Anti-Xa Level POC ABG pH POC ABG pCO2 POC ABG pO2 Sodium Potassium 6.2 H* Chloride Carbon Dioxide 8 L* BUN 85 H Creatinine 2.8 H Glucose 602 H* POC Glucose 495 H Calcium 7.9 L Phosphorus 6.9 H D Magnesium 3.0 H AST Alkaline Phosphatase C-Reactive Protein Total Protein Albumin Lipase Vitamin B12 TSH Urine WBC (Auto) Urine Chloride Urine Total Protein Vancomycin Trough Crossmatch 10/13/16 10/13/16 10/13/16 08:49 08:55 10:12 WBC RBC Hgb Hct MCV RDW Plt Count Lymph % (Auto) [place] % (Auto) [place] # Seg Neutrophils % Seg Neuts % (Manual) Lymphocytes % (Manual) Monocytes % (Manual) Basophils % (Manual) Nucleated RBC % Seg Neutrophils # Seg Neutrophils # Man Lymphocytes # (Manual) Monocytes # (Manual) Eosinophils # (Manual) Basophils # (Manual) PT INR APTT Heparin Anti-Xa Level POC ABG pH POC ABG pCO2 POC ABG pO2 Sodium Potassium 5.6 H Chloride Carbon Dioxide 11 L BUN 77 H Creatinine 2.7 H Glucose 457 H POC Glucose > 500 H 424 H Calcium 8.0 L Phosphorus Magnesium AST Alkaline Phosphatase C-Reactive Protein Total Protein Albumin Lipase Vitamin B12 TSH Urine WBC (Auto) Urine Chloride Urine Total Protein Vancomycin Trough Crossmatch 10/13/16 10/13/16 10/13/16 10:44 11:22 12:20 WBC RBC Hgb Hct MCV RDW Plt Count Lymph % (Auto) [place] % (Auto) [place] # Seg Neutrophils % Seg Neuts % (Manual) Lymphocytes % (Manual) Monocytes % (Manual) Basophils % (Manual) Nucleated RBC % Seg Neutrophils # Seg Neutrophils # Man Lymphocytes # (Manual) Monocytes # (Manual) Eosinophils # (Manual) Basophils # (Manual) PT INR APTT Heparin Anti-Xa Level POC ABG pH POC ABG pCO2 POC ABG pO2 Sodium Potassium 5.4 H Chloride Carbon Dioxide 14 L BUN 72 H Creatinine 2.6 H Glucose 383 H POC Glucose 391 H 313 H Calcium 8.2 L Phosphorus Magnesium AST Alkaline Phosphatase C-Reactive Protein Total Protein Albumin Lipase Vitamin B12 TSH Urine WBC (Auto) Urine Chloride Urine Total Protein Vancomycin Trough Crossmatch 10/13/16 10/13/16 10/13/16 13:32 14:44 15:57 WBC RBC Hgb Hct MCV RDW Plt Count Lymph % (Auto) [place] % (Auto) [place] # Seg Neutrophils % Seg Neuts % (Manual) Lymphocytes % (Manual) Monocytes % (Manual) Basophils % (Manual) Nucleated RBC % Seg Neutrophils # Seg Neutrophils # Man Lymphocytes # (Manual) Monocytes # (Manual) Eosinophils # (Manual) Basophils # (Manual) PT INR APTT Heparin Anti-Xa Level POC ABG pH POC ABG pCO2 POC ABG pO2 Sodium Potassium Chloride Carbon Dioxide BUN Creatinine Glucose POC Glucose 296 H 210 H 190 H Calcium Phosphorus Magnesium AST Alkaline Phosphatase C-Reactive Protein Total Protein Albumin Lipase Vitamin B12 TSH Urine WBC (Auto) Urine Chloride Urine Total Protein Vancomycin Trough Crossmatch 10/13/16 10/13/16 10/13/16 16:14 16:14 17:17 WBC RBC Hgb Hct MCV RDW Plt Count Lymph % (Auto) [place] % (Auto) [place] # Seg Neutrophils % Seg Neuts % (Manual) Lymphocytes % (Manual) Monocytes % (Manual) Basophils % (Manual) Nucleated RBC % Seg Neutrophils # Seg Neutrophils # Man Lymphocytes # (Manual) Monocytes # (Manual) Eosinophils # (Manual) Basophils # (Manual) PT INR APTT Heparin Anti-Xa Level POC ABG pH POC ABG pCO2 POC ABG pO2 Sodium Potassium Chloride Carbon Dioxide 17 L BUN 58 H Creatinine 1.8 H Glucose 172 H POC Glucose 193 H Calcium 7.7 L Phosphorus Magnesium AST Alkaline Phosphatase C-Reactive Protein 10.50 H Total Protein Albumin Lipase Vitamin B12 TSH Urine WBC (Auto) Urine Chloride Urine Total Protein Vancomycin Trough Crossmatch 10/13/16 10/13/16 10/13/16 17:55 18:32 19:41 WBC RBC Hgb Hct MCV RDW Plt Count Lymph % (Auto) [place] % (Auto) [place] # Seg Neutrophils % Seg Neuts % (Manual) Lymphocytes % (Manual) Monocytes % (Manual) Basophils % (Manual) Nucleated RBC % Seg Neutrophils # Seg Neutrophils # Man Lymphocytes # (Manual) Monocytes # (Manual) Eosinophils # (Manual) Basophils # (Manual) PT INR APTT Heparin Anti-Xa Level POC ABG pH POC ABG pCO2 30.6 L POC ABG pO2 218 H Sodium Potassium Chloride Carbon Dioxide BUN Creatinine Glucose POC Glucose 192 H 177 H Calcium Phosphorus Magnesium AST Alkaline Phosphatase C-Reactive Protein Total Protein Albumin Lipase Vitamin B12 TSH Urine WBC (Auto) Urine Chloride Urine Total Protein Vancomycin Trough Crossmatch 10/13/16 10/13/16 10/13/16 20:54 22:07 23:13 WBC RBC Hgb Hct MCV RDW Plt Count Lymph % (Auto) [place] % (Auto) [place] # Seg Neutrophils % Seg Neuts % (Manual) Lymphocytes % (Manual) Monocytes % (Manual) Basophils % (Manual) Nucleated RBC % Seg Neutrophils # Seg Neutrophils # Man Lymphocytes # (Manual) Monocytes # (Manual) Eosinophils # (Manual) Basophils # (Manual) PT INR APTT Heparin Anti-Xa Level POC ABG pH POC ABG pCO2 POC ABG pO2 Sodium Potassium Chloride Carbon Dioxide BUN Creatinine Glucose POC Glucose 178 H 160 H 168 H Calcium Phosphorus Magnesium AST Alkaline Phosphatase C-Reactive Protein Total Protein Albumin Lipase Vitamin B12 TSH Urine WBC (Auto) Urine Chloride Urine Total Protein Vancomycin Trough Crossmatch 10/13/16 10/13/16 10/14/16 23:25 Unknown 00:21 WBC RBC Hgb Hct MCV RDW Plt Count Lymph % (Auto) [place] % (Auto) [place] # Seg Neutrophils % Seg Neuts % (Manual) Lymphocytes % (Manual) Monocytes % (Manual) Basophils % (Manual) Nucleated RBC % Seg Neutrophils # Seg Neutrophils # Man Lymphocytes # (Manual) Monocytes # (Manual) Eosinophils # (Manual) Basophils # (Manual) PT INR APTT Heparin Anti-Xa Level POC ABG pH POC ABG pCO2 POC ABG pO2 Sodium 148 H Potassium Chloride 114.6 H Carbon Dioxide 17 L BUN 56 H Creatinine 1.6 H Glucose 151 H POC Glucose 171 H Calcium 7.8 L Phosphorus Magnesium AST Alkaline Phosphatase C-Reactive Protein Total Protein Albumin Lipase Vitamin B12 TSH Urine WBC (Auto) Urine Chloride 10.0 L Urine Total Protein < 4 L Vancomycin Trough Crossmatch 10/14/16 10/14/16 10/14/16 01:22 02:29 03:30 WBC RBC Hgb Hct MCV RDW Plt Count Lymph % (Auto) [place] % (Auto) [place] # Seg Neutrophils % Seg Neuts % (Manual) Lymphocytes % (Manual) Monocytes % (Manual) Basophils % (Manual) Nucleated RBC % Seg Neutrophils # Seg Neutrophils # Man Lymphocytes # (Manual) Monocytes # (Manual) Eosinophils # (Manual) Basophils # (Manual) PT INR APTT Heparin Anti-Xa Level POC ABG pH POC ABG pCO2 POC ABG pO2 Sodium Potassium Chloride Carbon Dioxide BUN Creatinine Glucose POC Glucose 144 H 136 H 143 H Calcium Phosphorus Magnesium AST Alkaline Phosphatase C-Reactive Protein Total Protein Albumin Lipase Vitamin B12 TSH Urine WBC (Auto) Urine Chloride Urine Total Protein Vancomycin Trough Crossmatch 10/14/16 10/14/16 10/14/16 04:28 05:16 05:44 WBC RBC Hgb Hct MCV RDW Plt Count Lymph % (Auto) [place] % (Auto) [place] # Seg Neutrophils % Seg Neuts % (Manual) Lymphocytes % (Manual) Monocytes % (Manual) Basophils % (Manual) Nucleated RBC % Seg Neutrophils # Seg Neutrophils # Man Lymphocytes # (Manual) Monocytes # (Manual) Eosinophils # (Manual) Basophils # (Manual) PT INR APTT Heparin Anti-Xa Level POC ABG pH POC ABG pCO2 28.2 L POC ABG pO2 125 H Sodium Potassium Chloride Carbon Dioxide BUN Creatinine Glucose POC Glucose 133 H 160 H Calcium Phosphorus Magnesium AST Alkaline Phosphatase C-Reactive Protein Total Protein Albumin Lipase Vitamin B12 TSH Urine WBC (Auto) Urine Chloride Urine Total Protein Vancomycin Trough Crossmatch 10/14/16 10/14/16 10/14/16 06:12 06:45 07:03 WBC RBC Hgb Hct MCV RDW Plt Count Lymph % (Auto) [place] % (Auto) [place] # Seg Neutrophils % Seg Neuts % (Manual) Lymphocytes % (Manual) Monocytes % (Manual) Basophils % (Manual) Nucleated RBC % Seg Neutrophils # Seg Neutrophils # Man Lymphocytes # (Manual) Monocytes # (Manual) Eosinophils # (Manual) Basophils # (Manual) PT INR APTT Heparin Anti-Xa Level POC ABG pH POC ABG pCO2 POC ABG pO2 Sodium 149 H Potassium Chloride 115.4 H Carbon Dioxide 17 L BUN 45 H Creatinine 1.5 H Glucose 139 H POC Glucose 149 H Calcium 7.4 L Phosphorus 1.0 L D Magnesium AST Alkaline Phosphatase C-Reactive Protein Total Protein Albumin Lipase Vitamin B12 TSH Urine WBC (Auto) Urine Chloride Urine Total Protein Vancomycin Trough Crossmatch 10/14/16 10/14/16 10/14/16 07:03 08:02 09:16 WBC RBC Hgb Hct MCV RDW Plt Count Lymph % (Auto) [place] % (Auto) [place] # Seg Neutrophils % Seg Neuts % (Manual) Lymphocytes % (Manual) Monocytes % (Manual) Basophils % (Manual) Nucleated RBC % Seg Neutrophils # Seg Neutrophils # Man Lymphocytes # (Manual) Monocytes # (Manual) Eosinophils # (Manual) Basophils # (Manual) PT INR APTT Heparin Anti-Xa Level POC ABG pH POC ABG pCO2 POC ABG pO2 Sodium Potassium Chloride Carbon Dioxide BUN Creatinine Glucose POC Glucose 156 H 158 H Calcium Phosphorus Magnesium AST Alkaline Phosphatase C-Reactive Protein Total Protein Albumin Lipase 738 H Vitamin B12 TSH Urine WBC (Auto) Urine Chloride Urine Total Protein Vancomycin Trough Crossmatch 10/14/16 10/14/16 10/14/16 10:26 11:03 11:57 WBC RBC Hgb Hct MCV RDW Plt Count Lymph % (Auto) [place] % (Auto) [place] # Seg Neutrophils % Seg Neuts % (Manual) Lymphocytes % (Manual) Monocytes % (Manual) Basophils % (Manual) Nucleated RBC % Seg Neutrophils # Seg Neutrophils # Man Lymphocytes # (Manual) Monocytes # (Manual) Eosinophils # (Manual) Basophils # (Manual) PT INR APTT Heparin Anti-Xa Level POC ABG pH 7.198 L POC ABG pCO2 47.5 H POC ABG pO2 Sodium Potassium Chloride Carbon Dioxide BUN Creatinine Glucose POC Glucose 174 H 189 H Calcium Phosphorus Magnesium AST Alkaline Phosphatase C-Reactive Protein Total Protein Albumin Lipase Vitamin B12 TSH Urine WBC (Auto) Urine Chloride Urine Total Protein Vancomycin Trough Crossmatch 10/14/16 10/14/16 10/14/16 12:02 12:02 13:11 WBC 13.4 H RBC 3.60 L Hgb Hct MCV 98 H D RDW 13.1 L Plt Count Lymph % (Auto) [place] % (Auto) [place] # Seg Neutrophils % Seg Neuts % (Manual) Lymphocytes % (Manual) Monocytes % (Manual) Basophils % (Manual) Nucleated RBC % Seg Neutrophils # Seg Neutrophils # Man Lymphocytes # (Manual) Monocytes # (Manual) Eosinophils # (Manual) Basophils # (Manual) PT INR APTT Heparin Anti-Xa Level POC ABG pH POC ABG pCO2 POC ABG pO2 Sodium Potassium Chloride 110.7 H Carbon Dioxide 19 L BUN 38 H Creatinine 1.4 H Glucose 182 H POC Glucose 173 H Calcium 7.5 L Phosphorus Magnesium AST Alkaline Phosphatase C-Reactive Protein Total Protein Albumin Lipase Vitamin B12 TSH Urine WBC (Auto) Urine Chloride Urine Total Protein Vancomycin Trough Crossmatch 10/14/16 10/14/16 10/14/16 14:24 15:31 16:36 WBC RBC Hgb Hct MCV RDW Plt Count Lymph % (Auto) [place] % (Auto) [place] # Seg Neutrophils % Seg Neuts % (Manual) Lymphocytes % (Manual) Monocytes % (Manual) Basophils % (Manual) Nucleated RBC % Seg Neutrophils # Seg Neutrophils # Man Lymphocytes # (Manual) Monocytes # (Manual) Eosinophils # (Manual) Basophils # (Manual) PT INR APTT Heparin Anti-Xa Level POC ABG pH POC ABG pCO2 POC ABG pO2 Sodium Potassium Chloride Carbon Dioxide BUN Creatinine Glucose POC Glucose 123 H 124 H 156 H Calcium Phosphorus Magnesium AST Alkaline Phosphatase C-Reactive Protein Total Protein Albumin Lipase Vitamin B12 TSH Urine WBC (Auto) Urine Chloride Urine Total Protein Vancomycin Trough Crossmatch 10/14/16 10/14/16 10/14/16 17:43 19:00 20:08 WBC RBC Hgb Hct MCV RDW Plt Count Lymph % (Auto) [place] % (Auto) [place] # Seg Neutrophils % Seg Neuts % (Manual) Lymphocytes % (Manual) Monocytes % (Manual) Basophils % (Manual) Nucleated RBC % Seg Neutrophils # Seg Neutrophils # Man Lymphocytes # (Manual) Monocytes # (Manual) Eosinophils # (Manual) Basophils # (Manual) PT INR APTT Heparin Anti-Xa Level POC ABG pH POC ABG pCO2 POC ABG pO2 Sodium Potassium Chloride Carbon Dioxide BUN Creatinine Glucose POC Glucose 154 H 123 H 138 H Calcium Phosphorus Magnesium AST Alkaline Phosphatase C-Reactive Protein Total Protein Albumin Lipase Vitamin B12 TSH Urine WBC (Auto) Urine Chloride Urine Total Protein Vancomycin Trough Crossmatch 10/14/16 10/14/16 10/14/16 21:17 22:25 23:37 WBC RBC Hgb Hct MCV RDW Plt Count Lymph % (Auto) [place] % (Auto) [place] # Seg Neutrophils % Seg Neuts % (Manual) Lymphocytes % (Manual) Monocytes % (Manual) Basophils % (Manual) Nucleated RBC % Seg Neutrophils # Seg Neutrophils # Man Lymphocytes # (Manual) Monocytes # (Manual) Eosinophils # (Manual) Basophils # (Manual) PT INR APTT Heparin Anti-Xa Level POC ABG pH POC ABG pCO2 POC ABG pO2 Sodium Potassium Chloride Carbon Dioxide BUN Creatinine Glucose POC Glucose 148 H 132 H 137 H Calcium Phosphorus Magnesium AST Alkaline Phosphatase C-Reactive Protein Total Protein Albumin Lipase Vitamin B12 TSH Urine WBC (Auto) Urine Chloride Urine Total Protein Vancomycin Trough Crossmatch 10/15/16 10/15/16 10/15/16 00:49 01:53 03:06 WBC RBC Hgb Hct MCV RDW Plt Count Lymph % (Auto) [place] % (Auto) [place] # Seg Neutrophils % Seg Neuts % (Manual) Lymphocytes % (Manual) Monocytes % (Manual) Basophils % (Manual) Nucleated RBC % Seg Neutrophils # Seg Neutrophils # Man Lymphocytes # (Manual) Monocytes # (Manual) Eosinophils # (Manual) Basophils # (Manual) PT INR APTT Heparin Anti-Xa Level POC ABG pH POC ABG pCO2 POC ABG pO2 Sodium Potassium Chloride Carbon Dioxide BUN Creatinine Glucose POC Glucose 132 H 134 H 134 H Calcium Phosphorus Magnesium AST Alkaline Phosphatase C-Reactive Protein Total Protein Albumin Lipase Vitamin B12 TSH Urine WBC (Auto) Urine Chloride Urine Total Protein Vancomycin Trough Crossmatch 10/15/16 10/15/16 10/15/16 04:40 04:46 06:21 WBC RBC Hgb Hct MCV RDW Plt Count Lymph % (Auto) [place] % (Auto) [place] # Seg Neutrophils % Seg Neuts % (Manual) Lymphocytes % (Manual) Monocytes % (Manual) Basophils % (Manual) Nucleated RBC % Seg Neutrophils # Seg Neutrophils # Man Lymphocytes # (Manual) Monocytes # (Manual) Eosinophils # (Manual) Basophils # (Manual) PT INR APTT Heparin Anti-Xa Level POC ABG pH POC ABG pCO2 30.7 L POC ABG pO2 108 H Sodium Potassium Chloride 109.0 H Carbon Dioxide 17 L BUN 27 H Creatinine Glucose 124 H POC Glucose 160 H Calcium 7.5 L Phosphorus Magnesium AST 79 H Alkaline Phosphatase C-Reactive Protein Total Protein 5.5 L Albumin 3.0 L Lipase Vitamin B12 TSH Urine WBC (Auto) Urine Chloride Urine Total Protein Vancomycin Trough Crossmatch 10/15/16 10/15/16 10/15/16 07:12 08:01 09:03 WBC RBC Hgb Hct MCV RDW Plt Count Lymph % (Auto) [place] % (Auto) [place] # Seg Neutrophils % Seg Neuts % (Manual) Lymphocytes % (Manual) Monocytes % (Manual) Basophils % (Manual) Nucleated RBC % Seg Neutrophils # Seg Neutrophils # Man Lymphocytes # (Manual) Monocytes # (Manual) Eosinophils # (Manual) Basophils # (Manual) PT INR APTT Heparin Anti-Xa Level POC ABG pH POC ABG pCO2 POC ABG pO2 Sodium Potassium Chloride Carbon Dioxide BUN Creatinine Glucose POC Glucose 179 H 187 H 165 H Calcium Phosphorus Magnesium AST Alkaline Phosphatase C-Reactive Protein Total Protein Albumin Lipase Vitamin B12 TSH Urine WBC (Auto) Urine Chloride Urine Total Protein Vancomycin Trough Crossmatch 10/15/16 10/15/16 10/15/16 10:06 10:06 10:07 WBC 12.1 H RBC 3.01 L Hgb 9.7 L Hct 29.6 L MCV 98 H RDW Plt Count 129 L Lymph % (Auto) [place] % (Auto) [place] # Seg Neutrophils % Seg Neuts % (Manual) Lymphocytes % (Manual) Monocytes % (Manual) Basophils % (Manual) Nucleated RBC % Seg Neutrophils # Seg Neutrophils # Man Lymphocytes # (Manual) Monocytes # (Manual) Eosinophils # (Manual) Basophils # (Manual) PT INR APTT Heparin Anti-Xa Level POC ABG pH POC ABG pCO2 POC ABG pO2 Sodium Potassium 3.2 L D Chloride 109.6 H Carbon Dioxide 18 L BUN 22 H Creatinine Glucose 127 H POC Glucose 147 H Calcium 7.0 L Phosphorus Magnesium AST Alkaline Phosphatase C-Reactive Protein Total Protein Albumin Lipase Vitamin B12 TSH Urine WBC (Auto) Urine Chloride Urine Total Protein Vancomycin Trough Crossmatch 10/15/16 10/15/16 10/15/16 11:05 11:06 11:57 WBC RBC Hgb Hct MCV RDW Plt Count Lymph % (Auto) [place] % (Auto) [place] # Seg Neutrophils % Seg Neuts % (Manual) Lymphocytes % (Manual) Monocytes % (Manual) Basophils % (Manual) Nucleated RBC % Seg Neutrophils # Seg Neutrophils # Man Lymphocytes # (Manual) Monocytes # (Manual) Eosinophils # (Manual) Basophils # (Manual) PT INR APTT Heparin Anti-Xa Level POC ABG pH 7.305 L POC ABG pCO2 POC ABG pO2 Sodium Potassium Chloride Carbon Dioxide BUN Creatinine Glucose POC Glucose 145 H Calcium Phosphorus Magnesium AST Alkaline Phosphatase C-Reactive Protein Total Protein Albumin Lipase Vitamin B12 TSH Urine WBC (Auto) 7.0 H Urine Chloride Urine Total Protein Vancomycin Trough Crossmatch 10/15/16 10/15/16 10/15/16 12:04 13:59 15:24 WBC RBC Hgb Hct MCV RDW Plt Count Lymph % (Auto) [place] % (Auto) [place] # Seg Neutrophils % Seg Neuts % (Manual) Lymphocytes % (Manual) Monocytes % (Manual) Basophils % (Manual) Nucleated RBC % Seg Neutrophils # Seg Neutrophils # Man Lymphocytes # (Manual) Monocytes # (Manual) Eosinophils # (Manual) Basophils # (Manual) PT INR APTT Heparin Anti-Xa Level POC ABG pH POC ABG pCO2 POC ABG pO2 Sodium Potassium Chloride Carbon Dioxide BUN Creatinine Glucose POC Glucose 123 H 147 H 153 H Calcium Phosphorus Magnesium AST Alkaline Phosphatase C-Reactive Protein Total Protein Albumin Lipase Vitamin B12 TSH Urine WBC (Auto) Urine Chloride Urine Total Protein Vancomycin Trough Crossmatch 10/15/16 10/15/16 10/15/16 16:30 17:34 18:30 WBC RBC Hgb Hct MCV RDW Plt Count Lymph % (Auto) [place] % (Auto) [place] # Seg Neutrophils % Seg Neuts % (Manual) Lymphocytes % (Manual) Monocytes % (Manual) Basophils % (Manual) Nucleated RBC % Seg Neutrophils # Seg Neutrophils # Man Lymphocytes # (Manual) Monocytes # (Manual) Eosinophils # (Manual) Basophils # (Manual) PT INR APTT Heparin Anti-Xa Level POC ABG pH POC ABG pCO2 POC ABG pO2 Sodium Potassium Chloride Carbon Dioxide BUN Creatinine Glucose POC Glucose 223 H 236 H 164 H Calcium Phosphorus Magnesium AST Alkaline Phosphatase C-Reactive Protein Total Protein Albumin Lipase Vitamin B12 TSH Urine WBC (Auto) Urine Chloride Urine Total Protein Vancomycin Trough Crossmatch 10/15/16 10/15/16 10/15/16 19:14 20:31 21:23 WBC RBC Hgb Hct MCV RDW Plt Count Lymph % (Auto) [place] % (Auto) [place] # Seg Neutrophils % Seg Neuts % (Manual) Lymphocytes % (Manual) Monocytes % (Manual) Basophils % (Manual) Nucleated RBC % Seg Neutrophils # Seg Neutrophils # Man Lymphocytes # (Manual) Monocytes # (Manual) Eosinophils # (Manual) Basophils # (Manual) PT INR APTT Heparin Anti-Xa Level POC ABG pH POC ABG pCO2 POC ABG pO2 Sodium Potassium Chloride Carbon Dioxide BUN Creatinine Glucose POC Glucose 138 H 158 H 158 H Calcium Phosphorus Magnesium AST Alkaline Phosphatase C-Reactive Protein Total Protein Albumin Lipase Vitamin B12 TSH Urine WBC (Auto) Urine Chloride Urine Total Protein Vancomycin Trough Crossmatch 10/15/16 10/15/16 10/16/16 22:04 22:57 00:11 WBC RBC Hgb Hct MCV RDW Plt Count Lymph % (Auto) [place] % (Auto) [place] # Seg Neutrophils % Seg Neuts % (Manual) Lymphocytes % (Manual) Monocytes % (Manual) Basophils % (Manual) Nucleated RBC % Seg Neutrophils # Seg Neutrophils # Man Lymphocytes # (Manual) Monocytes # (Manual) Eosinophils # (Manual) Basophils # (Manual) PT INR APTT Heparin Anti-Xa Level POC ABG pH POC ABG pCO2 POC ABG pO2 Sodium Potassium Chloride Carbon Dioxide BUN Creatinine Glucose POC Glucose 168 H 213 H 166 H Calcium Phosphorus Magnesium AST Alkaline Phosphatase C-Reactive Protein Total Protein Albumin Lipase Vitamin B12 TSH Urine WBC (Auto) Urine Chloride Urine Total Protein Vancomycin Trough Crossmatch 10/16/16 10/16/16 10/16/16 01:16 02:32 03:38 WBC RBC Hgb Hct MCV RDW Plt Count Lymph % (Auto) [place] % (Auto) [place] # Seg Neutrophils % Seg Neuts % (Manual) Lymphocytes % (Manual) Monocytes % (Manual) Basophils % (Manual) Nucleated RBC % Seg Neutrophils # Seg Neutrophils # Man Lymphocytes # (Manual) Monocytes # (Manual) Eosinophils # (Manual) Basophils # (Manual) PT INR APTT Heparin Anti-Xa Level POC ABG pH POC ABG pCO2 POC ABG pO2 Sodium Potassium Chloride Carbon Dioxide BUN Creatinine Glucose POC Glucose 171 H 164 H 147 H Calcium Phosphorus Magnesium AST Alkaline Phosphatase C-Reactive Protein Total Protein Albumin Lipase Vitamin B12 TSH Urine WBC (Auto) Urine Chloride Urine Total Protein Vancomycin Trough Crossmatch 10/16/16 10/16/16 10/16/16 04:14 04:14 04:49 WBC RBC Hgb Hct MCV RDW Plt Count Lymph % (Auto) [place] % (Auto) [place] # Seg Neutrophils % Seg Neuts % (Manual) Lymphocytes % (Manual) Monocytes % (Manual) Basophils % (Manual) Nucleated RBC % Seg Neutrophils # Seg Neutrophils # Man Lymphocytes # (Manual) Monocytes # (Manual) Eosinophils # (Manual) Basophils # (Manual) PT INR APTT Heparin Anti-Xa Level POC ABG pH POC ABG pCO2 POC ABG pO2 Sodium 147 H Potassium Chloride 110.9 H Carbon Dioxide 19 L BUN Creatinine Glucose 139 H POC Glucose 144 H Calcium 7.3 L Phosphorus 2.3 L Magnesium AST Alkaline Phosphatase C-Reactive Protein Total Protein Albumin Lipase 143 H Vitamin B12 TSH Urine WBC (Auto) Urine Chloride Urine Total Protein Vancomycin Trough Crossmatch 10/16/16 10/16/16 10/16/16 05:03 05:41 05:58 WBC 16.5 H RBC 3.36 L Hgb Hct MCV 98 H RDW 13.1 L Plt Count Lymph % (Auto) 8.5 L [place] % (Auto) 7.6 H [place] # 1.3 H Seg Neutrophils % 83.3 H Seg Neuts % (Manual) Lymphocytes % (Manual) Monocytes % (Manual) Basophils % (Manual) Nucleated RBC % Seg Neutrophils # 13.8 H Seg Neutrophils # Man Lymphocytes # (Manual) Monocytes # (Manual) Eosinophils # (Manual) Basophils # (Manual) PT INR APTT Heparin Anti-Xa Level POC ABG pH POC ABG pCO2 30.7 L POC ABG pO2 128 H Sodium Potassium Chloride Carbon Dioxide BUN Creatinine Glucose POC Glucose 131 H Calcium Phosphorus Magnesium AST Alkaline Phosphatase C-Reactive Protein Total Protein Albumin Lipase Vitamin B12 TSH Urine WBC (Auto) Urine Chloride Urine Total Protein Vancomycin Trough Crossmatch 10/16/16 10/16/16 10/16/16 06:32 09:27 09:35 WBC RBC Hgb Hct MCV RDW Plt Count Lymph % (Auto) [place] % (Auto) [place] # Seg Neutrophils % Seg Neuts % (Manual) Lymphocytes % (Manual) Monocytes % (Manual) Basophils % (Manual) Nucleated RBC % Seg Neutrophils # Seg Neutrophils # Man Lymphocytes # (Manual) Monocytes # (Manual) Eosinophils # (Manual) Basophils # (Manual) PT INR APTT Heparin Anti-Xa Level POC ABG pH POC ABG pCO2 32.8 L POC ABG pO2 137 H Sodium Potassium Chloride Carbon Dioxide BUN Creatinine Glucose POC Glucose 121 H 150 H Calcium Phosphorus Magnesium AST Alkaline Phosphatase C-Reactive Protein Total Protein Albumin Lipase Vitamin B12 TSH Urine WBC (Auto) Urine Chloride Urine Total Protein Vancomycin Trough Crossmatch 10/16/16 10/16/16 10/16/16 10:47 13:27 14:24 WBC RBC Hgb Hct MCV RDW Plt Count Lymph % (Auto) [place] % (Auto) [place] # Seg Neutrophils % Seg Neuts % (Manual) Lymphocytes % (Manual) Monocytes % (Manual) Basophils % (Manual) Nucleated RBC % Seg Neutrophils # Seg Neutrophils # Man Lymphocytes # (Manual) Monocytes # (Manual) Eosinophils # (Manual) Basophils # (Manual) PT INR APTT Heparin Anti-Xa Level POC ABG pH POC ABG pCO2 POC ABG pO2 Sodium Potassium Chloride Carbon Dioxide BUN Creatinine Glucose POC Glucose 184 H 171 H 174 H Calcium Phosphorus Magnesium AST Alkaline Phosphatase C-Reactive Protein Total Protein Albumin Lipase Vitamin B12 TSH Urine WBC (Auto) Urine Chloride Urine Total Protein Vancomycin Trough Crossmatch 10/16/16 10/16/16 10/16/16 15:48 16:26 18:17 WBC RBC Hgb Hct MCV RDW Plt Count Lymph % (Auto) [place] % (Auto) [place] # Seg Neutrophils % Seg Neuts % (Manual) Lymphocytes % (Manual) Monocytes % (Manual) Basophils % (Manual) Nucleated RBC % Seg Neutrophils # Seg Neutrophils # Man Lymphocytes # (Manual) Monocytes # (Manual) Eosinophils # (Manual) Basophils # (Manual) PT INR APTT Heparin Anti-Xa Level POC ABG pH POC ABG pCO2 POC ABG pO2 Sodium Potassium Chloride Carbon Dioxide BUN Creatinine Glucose POC Glucose 205 H 204 H 234 H Calcium Phosphorus Magnesium AST Alkaline Phosphatase C-Reactive Protein Total Protein Albumin Lipase Vitamin B12 TSH Urine WBC (Auto) Urine Chloride Urine Total Protein Vancomycin Trough Crossmatch 10/16/16 10/16/16 10/16/16 19:40 20:33 21:36 WBC RBC Hgb Hct MCV RDW Plt Count Lymph % (Auto) [place] % (Auto) [place] # Seg Neutrophils % Seg Neuts % (Manual) Lymphocytes % (Manual) Monocytes % (Manual) Basophils % (Manual) Nucleated RBC % Seg Neutrophils # Seg Neutrophils # Man Lymphocytes # (Manual) Monocytes # (Manual) Eosinophils # (Manual) Basophils # (Manual) PT INR APTT Heparin Anti-Xa Level POC ABG pH POC ABG pCO2 POC ABG pO2 Sodium Potassium Chloride Carbon Dioxide BUN Creatinine Glucose POC Glucose 167 H 153 H 158 H Calcium Phosphorus Magnesium AST Alkaline Phosphatase C-Reactive Protein Total Protein Albumin Lipase Vitamin B12 TSH Urine WBC (Auto) Urine Chloride Urine Total Protein Vancomycin Trough Crossmatch 10/16/16 10/16/16 10/17/16 22:54 23:48 00:47 WBC RBC Hgb Hct MCV RDW Plt Count Lymph % (Auto) [place] % (Auto) [place] # Seg Neutrophils % Seg Neuts % (Manual) Lymphocytes % (Manual) Monocytes % (Manual) Basophils % (Manual) Nucleated RBC % Seg Neutrophils # Seg Neutrophils # Man Lymphocytes # (Manual) Monocytes # (Manual) Eosinophils # (Manual) Basophils # (Manual) PT INR APTT Heparin Anti-Xa Level POC ABG pH POC ABG pCO2 POC ABG pO2 Sodium Potassium Chloride Carbon Dioxide BUN Creatinine Glucose POC Glucose 180 H 207 H 196 H Calcium Phosphorus Magnesium AST Alkaline Phosphatase C-Reactive Protein Total Protein Albumin Lipase Vitamin B12 TSH Urine WBC (Auto) Urine Chloride Urine Total Protein Vancomycin Trough Crossmatch 10/17/16 10/17/16 10/17/16 01:57 02:49 03:50 WBC RBC Hgb Hct MCV RDW Plt Count Lymph % (Auto) [place] % (Auto) [place] # Seg Neutrophils % Seg Neuts % (Manual) Lymphocytes % (Manual) Monocytes % (Manual) Basophils % (Manual) Nucleated RBC % Seg Neutrophils # Seg Neutrophils # Man Lymphocytes # (Manual) Monocytes # (Manual) Eosinophils # (Manual) Basophils # (Manual) PT INR APTT Heparin Anti-Xa Level POC ABG pH POC ABG pCO2 POC ABG pO2 Sodium Potassium Chloride Carbon Dioxide BUN Creatinine Glucose POC Glucose 180 H 151 H 106 H Calcium Phosphorus Magnesium AST Alkaline Phosphatase C-Reactive Protein Total Protein Albumin Lipase Vitamin B12 TSH Urine WBC (Auto) Urine Chloride Urine Total Protein Vancomycin Trough Crossmatch 10/17/16 10/17/16 10/17/16 04:59 06:03 06:35 WBC RBC Hgb Hct MCV RDW Plt Count Lymph % (Auto) [place] % (Auto) [place] # Seg Neutrophils % Seg Neuts % (Manual) Lymphocytes % (Manual) Monocytes % (Manual) Basophils % (Manual) Nucleated RBC % Seg Neutrophils # Seg Neutrophils # Man Lymphocytes # (Manual) Monocytes # (Manual) Eosinophils # (Manual) Basophils # (Manual) PT INR APTT Heparin Anti-Xa Level POC ABG pH 7.453 H POC ABG pCO2 30.1 L POC ABG pO2 111 H Sodium Potassium Chloride Carbon Dioxide BUN Creatinine Glucose POC Glucose 145 H 157 H Calcium Phosphorus Magnesium AST Alkaline Phosphatase C-Reactive Protein Total Protein Albumin Lipase Vitamin B12 TSH Urine WBC (Auto) Urine Chloride Urine Total Protein Vancomycin Trough Crossmatch 10/17/16 10/17/16 10/17/16 07:08 07:11 08:01 WBC RBC Hgb Hct MCV RDW Plt Count Lymph % (Auto) [place] % (Auto) [place] # Seg Neutrophils % Seg Neuts % (Manual) Lymphocytes % (Manual) Monocytes % (Manual) Basophils % (Manual) Nucleated RBC % Seg Neutrophils # Seg Neutrophils # Man Lymphocytes # (Manual) Monocytes # (Manual) Eosinophils # (Manual) Basophils # (Manual) PT INR APTT Heparin Anti-Xa Level POC ABG pH POC ABG pCO2 POC ABG pO2 Sodium 147 H Potassium Chloride 113.8 H Carbon Dioxide 19 L BUN Creatinine Glucose 136 H POC Glucose 136 H 152 H Calcium 7.7 L Phosphorus Magnesium AST Alkaline Phosphatase C-Reactive Protein Total Protein Albumin Lipase Vitamin B12 TSH Urine WBC (Auto) Urine Chloride Urine Total Protein Vancomycin Trough Crossmatch 03/09/0410/17/16 10/17/16 08:23 09:17 09:53 WBC 18.1 H RBC 3.01 L Hgb 9.7 L Hct 29.4 L MCV 98 H RDW Plt Count 116 L Lymph % (Auto) [place] % (Auto) [place] # Seg Neutrophils % Seg Neuts % (Manual) 77.0 H Lymphocytes % (Manual) 4.0 L Monocytes % (Manual) 12.0 H Basophils % (Manual) Nucleated RBC % Seg Neutrophils # Seg Neutrophils # Man 13.9 H Lymphocytes # (Manual) 0.7 L Monocytes # (Manual) 2.2 H Eosinophils # (Manual) Basophils # (Manual) PT INR APTT Heparin Anti-Xa Level POC ABG pH POC ABG pCO2 POC ABG pO2 Sodium Potassium Chloride Carbon Dioxide BUN Creatinine Glucose POC Glucose 148 H 137 H Calcium Phosphorus Magnesium AST Alkaline Phosphatase C-Reactive Protein Total Protein Albumin Lipase Vitamin B12 TSH Urine WBC (Auto) Urine Chloride Urine Total Protein Vancomycin Trough Crossmatch 10/17/16 10/17/16 10/17/16 11:43 16:07 17:42 WBC RBC Hgb Hct MCV RDW Plt Count Lymph % (Auto) [place] % (Auto) [place] # Seg Neutrophils % Seg Neuts % (Manual) Lymphocytes % (Manual) Monocytes % (Manual) Basophils % (Manual) Nucleated RBC % Seg Neutrophils # Seg Neutrophils # Man Lymphocytes # (Manual) Monocytes # (Manual) Eosinophils # (Manual) Basophils # (Manual) PT 16.4 H INR 1.33 H APTT 38.8 H Heparin Anti-Xa Level POC ABG pH POC ABG pCO2 POC ABG pO2 Sodium Potassium Chloride Carbon Dioxide BUN Creatinine Glucose POC Glucose 179 H 153 H Calcium Phosphorus Magnesium AST Alkaline Phosphatase C-Reactive Protein Total Protein Albumin Lipase Vitamin B12 TSH Urine WBC (Auto) Urine Chloride Urine Total Protein Vancomycin Trough Crossmatch 10/17/16 10/18/16 10/18/16 22:54 04:37 05:39 WBC RBC Hgb Hct MCV RDW Plt Count Lymph % (Auto) [place] % (Auto) [place] # Seg Neutrophils % Seg Neuts % (Manual) Lymphocytes % (Manual) Monocytes % (Manual) Basophils % (Manual) Nucleated RBC % Seg Neutrophils # Seg Neutrophils # Man Lymphocytes # (Manual) Monocytes # (Manual) Eosinophils # (Manual) Basophils # (Manual) PT INR APTT Heparin Anti-Xa Level 0.27 L POC ABG pH 7.454 H POC ABG pCO2 30.8 L POC ABG pO2 115 H Sodium Potassium Chloride Carbon Dioxide BUN Creatinine Glucose POC Glucose 69 L Calcium Phosphorus Magnesium AST Alkaline Phosphatase C-Reactive Protein Total Protein Albumin Lipase Vitamin B12 TSH Urine WBC (Auto) Urine Chloride Urine Total Protein Vancomycin Trough Crossmatch 10/18/16 10/18/16 10/18/16 06:46 06:46 06:46 WBC 20.5 H RBC 2.62 L Hgb 8.4 L Hct 26.0 L MCV 100 H RDW Plt Count Lymph % (Auto) [place] % (Auto) [place] # Seg Neutrophils % Seg Neuts % (Manual) 75.0 H Lymphocytes % (Manual) 9.0 L Monocytes % (Manual) 14.0 H Basophils % (Manual) Nucleated RBC % Seg Neutrophils # Seg Neutrophils # Man 15.4 H Lymphocytes # (Manual) Monocytes # (Manual) 2.9 H Eosinophils # (Manual) Basophils # (Manual) PT INR APTT Heparin Anti-Xa Level POC ABG pH POC ABG pCO2 POC ABG pO2 Sodium Potassium Chloride 110.6 H Carbon Dioxide BUN Creatinine 1.3 H Glucose 153 H POC Glucose Calcium 8.0 L Phosphorus Magnesium 1.6 L AST Alkaline Phosphatase C-Reactive Protein Total Protein Albumin Lipase Vitamin B12 TSH Urine WBC (Auto) Urine Chloride Urine Total Protein Vancomycin Trough Crossmatch 10/18/16 10/18/16 10/18/16 07:30 11:37 17:51 WBC RBC Hgb Hct MCV RDW Plt Count Lymph % (Auto) [place] % (Auto) [place] # Seg Neutrophils % Seg Neuts % (Manual) Lymphocytes % (Manual) Monocytes % (Manual) Basophils % (Manual) Nucleated RBC % Seg Neutrophils # Seg Neutrophils # Man Lymphocytes # (Manual) Monocytes # (Manual) Eosinophils # (Manual) Basophils # (Manual) PT INR APTT Heparin Anti-Xa Level POC ABG pH POC ABG pCO2 POC ABG pO2 Sodium Potassium Chloride Carbon Dioxide BUN Creatinine Glucose POC Glucose 162 H 156 H 164 H Calcium Phosphorus Magnesium AST Alkaline Phosphatase C-Reactive Protein Total Protein Albumin Lipase Vitamin B12 TSH Urine WBC (Auto) Urine Chloride Urine Total Protein Vancomycin Trough Crossmatch 10/18/16 10/19/16 10/19/16 23:44 03:59 05:13 WBC 18.2 H RBC 2.76 L Hgb 9.0 L Hct 27.7 L MCV 100 H RDW Plt Count Lymph % (Auto) [place] % (Auto) [place] # Seg Neutrophils % Seg Neuts % (Manual) 76.0 H Lymphocytes % (Manual) 10.0 L Monocytes % (Manual) Basophils % (Manual) Nucleated RBC % Seg Neutrophils # Seg Neutrophils # Man 13.8 H Lymphocytes # (Manual) Monocytes # (Manual) Eosinophils # (Manual) Basophils # (Manual) PT INR APTT Heparin Anti-Xa Level POC ABG pH POC ABG pCO2 32.2 L POC ABG pO2 128 H Sodium Potassium Chloride Carbon Dioxide BUN Creatinine Glucose POC Glucose 278 H Calcium Phosphorus Magnesium AST Alkaline Phosphatase C-Reactive Protein Total Protein Albumin Lipase Vitamin B12 TSH Urine WBC (Auto) Urine Chloride Urine Total Protein Vancomycin Trough Crossmatch 10/19/16 10/19/16 10/19/16 06:01 06:30 12:20 WBC RBC Hgb Hct MCV RDW Plt Count Lymph % (Auto) [place] % (Auto) [place] # Seg Neutrophils % Seg Neuts % (Manual) Lymphocytes % (Manual) Monocytes % (Manual) Basophils % (Manual) Nucleated RBC % Seg Neutrophils # Seg Neutrophils # Man Lymphocytes # (Manual) Monocytes # (Manual) Eosinophils # (Manual) Basophils # (Manual) PT INR APTT Heparin Anti-Xa Level POC ABG pH POC ABG pCO2 POC ABG pO2 Sodium Potassium Chloride Carbon Dioxide 18 L BUN Creatinine 1.3 H Glucose 262 H POC Glucose 261 H 349 H Calcium 7.7 L Phosphorus 4.8 H D Magnesium AST Alkaline Phosphatase C-Reactive Protein Total Protein Albumin Lipase Vitamin B12 TSH Urine WBC (Auto) Urine Chloride Urine Total Protein Vancomycin Trough Crossmatch 10/19/16 10/20/16 10/20/16 16:48 00:17 05:20 WBC 22.5 H RBC 2.80 L Hgb 8.9 L Hct 28.3 L MCV 101 H RDW Plt Count Lymph % (Auto) [place] % (Auto) [place] # Seg Neutrophils % Seg Neuts % (Manual) Lymphocytes % (Manual) 10.0 L Monocytes % (Manual) Basophils % (Manual) Nucleated RBC % Seg Neutrophils # Seg Neutrophils # Man 13.3 H Lymphocytes # (Manual) Monocytes # (Manual) 1.1 H Eosinophils # (Manual) 0.7 H Basophils # (Manual) PT INR APTT Heparin Anti-Xa Level POC ABG pH POC ABG pCO2 POC ABG pO2 Sodium Potassium Chloride Carbon Dioxide BUN Creatinine Glucose POC Glucose 248 H 346 H Calcium Phosphorus Magnesium AST Alkaline Phosphatase C-Reactive Protein Total Protein Albumin Lipase Vitamin B12 TSH Urine WBC (Auto) Urine Chloride Urine Total Protein Vancomycin Trough Crossmatch 10/20/16 10/20/16 10/20/16 05:20 05:20 06:05 WBC RBC Hgb Hct MCV RDW Plt Count Lymph % (Auto) [place] % (Auto) [place] # Seg Neutrophils % Seg Neuts % (Manual) Lymphocytes % (Manual) Monocytes % (Manual) Basophils % (Manual) Nucleated RBC % Seg Neutrophils # Seg Neutrophils # Man Lymphocytes # (Manual) Monocytes # (Manual) Eosinophils # (Manual) Basophils # (Manual) PT INR APTT Heparin Anti-Xa Level 0.20 L POC ABG pH POC ABG pCO2 POC ABG pO2 Sodium Potassium Chloride Carbon Dioxide BUN 20 H Creatinine Glucose 374 H POC Glucose 337 H Calcium 8.3 L Phosphorus Magnesium AST Alkaline Phosphatase C-Reactive Protein Total Protein Albumin Lipase Vitamin B12 TSH Urine WBC (Auto) Urine Chloride Urine Total Protein Vancomycin Trough Crossmatch 10/20/16 10/20/16 10/20/16 11:49 13:59 17:56 WBC RBC Hgb Hct MCV RDW Plt Count Lymph % (Auto) [place] % (Auto) [place] # Seg Neutrophils % Seg Neuts % (Manual) Lymphocytes % (Manual) Monocytes % (Manual) Basophils % (Manual) Nucleated RBC % Seg Neutrophils # Seg Neutrophils # Man Lymphocytes # (Manual) Monocytes # (Manual) Eosinophils # (Manual) Basophils # (Manual) PT INR APTT Heparin Anti-Xa Level 2.00 H POC ABG pH POC ABG pCO2 POC ABG pO2 Sodium Potassium Chloride Carbon Dioxide BUN Creatinine Glucose POC Glucose 305 H 362 H Calcium Phosphorus Magnesium AST Alkaline Phosphatase C-Reactive Protein Total Protein Albumin Lipase Vitamin B12 TSH Urine WBC (Auto) Urine Chloride Urine Total Protein Vancomycin Trough Crossmatch 10/20/16 10/21/16 10/21/16 23:52 05:00 05:49 WBC 22.9 H RBC 2.49 L Hgb 7.7 L Hct 25.6 L MCV 103 H RDW Plt Count Lymph % (Auto) [place] % (Auto) [place] # Seg Neutrophils % Seg Neuts % (Manual) 94.0 H Lymphocytes % (Manual) 1.0 L Monocytes % (Manual) Basophils % (Manual) Nucleated RBC % Seg Neutrophils # Seg Neutrophils # Man 21.5 H Lymphocytes # (Manual) 0.2 L Monocytes # (Manual) 1.1 H Eosinophils # (Manual) Basophils # (Manual) PT INR APTT Heparin Anti-Xa Level POC ABG pH POC ABG pCO2 POC ABG pO2 Sodium Potassium Chloride Carbon Dioxide BUN Creatinine Glucose POC Glucose 252 H 180 H Calcium Phosphorus Magnesium AST Alkaline Phosphatase C-Reactive Protein Total Protein Albumin Lipase Vitamin B12 TSH Urine WBC (Auto) Urine Chloride Urine Total Protein Vancomycin Trough Crossmatch 10/21/16 10/21/16 10/21/16 11:47 11:49 14:10 WBC RBC Hgb Hct MCV RDW Plt Count Lymph % (Auto) [place] % (Auto) [place] # Seg Neutrophils % Seg Neuts % (Manual) Lymphocytes % (Manual) Monocytes % (Manual) Basophils % (Manual) Nucleated RBC % Seg Neutrophils # Seg Neutrophils # Man Lymphocytes # (Manual) Monocytes # (Manual) Eosinophils # (Manual) Basophils # (Manual) PT INR APTT Heparin Anti-Xa Level POC ABG pH POC ABG pCO2 POC ABG pO2 Sodium Potassium Chloride Carbon Dioxide BUN Creatinine Glucose POC Glucose 50 L 56 L 140 H Calcium Phosphorus Magnesium AST Alkaline Phosphatase C-Reactive Protein Total Protein Albumin Lipase Vitamin B12 TSH Urine WBC (Auto) Urine Chloride Urine Total Protein Vancomycin Trough Crossmatch 10/21/16 10/21/16 10/22/16 18:24 Unknown 00:07 WBC RBC Hgb Hct MCV RDW Plt Count Lymph % (Auto) [place] % (Auto) [place] # Seg Neutrophils % Seg Neuts % (Manual) Lymphocytes % (Manual) Monocytes % (Manual) Basophils % (Manual) Nucleated RBC % Seg Neutrophils # Seg Neutrophils # Man Lymphocytes # (Manual) Monocytes # (Manual) Eosinophils # (Manual) Basophils # (Manual) PT INR APTT Heparin Anti-Xa Level POC ABG pH POC ABG pCO2 POC ABG pO2 Sodium 150 H Potassium 3.1 L Chloride 112.4 H Carbon Dioxide BUN 25 H Creatinine 1.4 H Glucose POC Glucose 175 H 218 H Calcium 8.0 L Phosphorus Magnesium AST Alkaline Phosphatase C-Reactive Protein Total Protein Albumin Lipase Vitamin B12 TSH Urine WBC (Auto) Urine Chloride Urine Total Protein Vancomycin Trough Crossmatch 10/22/16 10/22/16 10/22/16 04:20 04:20 10:25 WBC 20.8 H RBC 2.37 L Hgb 7.5 L Hct 23.9 L MCV 101 H RDW Plt Count Lymph % (Auto) [place] % (Auto) [place] # Seg Neutrophils % Seg Neuts % (Manual) 89.0 H Lymphocytes % (Manual) 7.0 L Monocytes % (Manual) Basophils % (Manual) Nucleated RBC % Seg Neutrophils # Seg Neutrophils # Man 18.5 H Lymphocytes # (Manual) Monocytes # (Manual) Eosinophils # (Manual) Basophils # (Manual) 0.2 H PT INR APTT Heparin Anti-Xa Level POC ABG pH POC ABG pCO2 POC ABG pO2 Sodium 148 H Potassium 2.9 L* Chloride 109.4 H Carbon Dioxide BUN 26 H Creatinine Glucose 140 H POC Glucose Calcium 7.5 L Phosphorus Magnesium AST Alkaline Phosphatase C-Reactive Protein Total Protein Albumin Lipase Vitamin B12 976.8 H TSH Urine WBC (Auto) Urine Chloride Urine Total Protein Vancomycin Trough Crossmatch 10/22/16 10/22/16 10/22/16 10:25 14:50 18:16 WBC RBC Hgb Hct MCV RDW Plt Count Lymph % (Auto) [place] % (Auto) [place] # Seg Neutrophils % Seg Neuts % (Manual) Lymphocytes % (Manual) Monocytes % (Manual) Basophils % (Manual) Nucleated RBC % Seg Neutrophils # Seg Neutrophils # Man Lymphocytes # (Manual) Monocytes # (Manual) Eosinophils # (Manual) Basophils # (Manual) PT INR APTT Heparin Anti-Xa Level POC ABG pH POC ABG pCO2 POC ABG pO2 Sodium Potassium Chloride Carbon Dioxide BUN Creatinine Glucose POC Glucose 193 H Calcium Phosphorus Magnesium AST Alkaline Phosphatase C-Reactive Protein Total Protein Albumin Lipase Vitamin B12 TSH 0.143 L 0.162 L Urine WBC (Auto) Urine Chloride Urine Total Protein Vancomycin Trough Crossmatch 10/22/16 10/22/16 10/22/16 20:00 20:00 20:00 WBC 24.1 H RBC 2.58 L Hgb 8.2 L Hct 26.4 L MCV 102 H RDW Plt Count Lymph % (Auto) [place] % (Auto) [place] # Seg Neutrophils % Seg Neuts % (Manual) 74.0 H Lymphocytes % (Manual) 7.0 L Monocytes % (Manual) Basophils % (Manual) Nucleated RBC % Seg Neutrophils # Seg Neutrophils # Man 17.8 H Lymphocytes # (Manual) Monocytes # (Manual) Eosinophils # (Manual) Basophils # (Manual) PT INR APTT Heparin Anti-Xa Level 1.92 H POC ABG pH POC ABG pCO2 POC ABG pO2 Sodium Potassium Chloride Carbon Dioxide BUN Creatinine Glucose POC Glucose Calcium Phosphorus Magnesium AST Alkaline Phosphatase C-Reactive Protein Total Protein Albumin Lipase Vitamin B12 TSH Urine WBC (Auto) Urine Chloride Urine Total Protein Vancomycin Trough Crossmatch See Detail 10/23/16 10/23/16 10/23/16 00:21 06:09 12:07 WBC RBC Hgb Hct MCV RDW Plt Count Lymph % (Auto) [place] % (Auto) [place] # Seg Neutrophils % Seg Neuts % (Manual) Lymphocytes % (Manual) Monocytes % (Manual) Basophils % (Manual) Nucleated RBC % Seg Neutrophils # Seg Neutrophils # Man Lymphocytes # (Manual) Monocytes # (Manual) Eosinophils # (Manual) Basophils # (Manual) PT INR APTT Heparin Anti-Xa Level POC ABG pH POC ABG pCO2 POC ABG pO2 Sodium Potassium Chloride Carbon Dioxide BUN Creatinine Glucose POC Glucose 283 H 241 H 340 H Calcium Phosphorus Magnesium AST Alkaline Phosphatase C-Reactive Protein Total Protein Albumin Lipase Vitamin B12 TSH Urine WBC (Auto) Urine Chloride Urine Total Protein Vancomycin Trough Crossmatch 10/23/16 10/23/16 10/23/16 14:01 16:00 17:59 WBC RBC Hgb Hct MCV RDW Plt Count Lymph % (Auto) [place] % (Auto) [place] # Seg Neutrophils % Seg Neuts % (Manual) Lymphocytes % (Manual) Monocytes % (Manual) Basophils % (Manual) Nucleated RBC % Seg Neutrophils # Seg Neutrophils # Man Lymphocytes # (Manual) Monocytes # (Manual) Eosinophils # (Manual) Basophils # (Manual) PT INR APTT Heparin Anti-Xa Level 0.19 L POC ABG pH POC ABG pCO2 32.4 L POC ABG pO2 Sodium Potassium Chloride Carbon Dioxide BUN Creatinine Glucose POC Glucose 245 H Calcium Phosphorus Magnesium AST Alkaline Phosphatase C-Reactive Protein Total Protein Albumin Lipase Vitamin B12 TSH Urine WBC (Auto) Urine Chloride Urine Total Protein Vancomycin Trough Crossmatch 10/23/16 10/23/16 10/23/16 22:55 Unknown Unknown WBC 22.6 H RBC 3.26 L Hgb Hct MCV RDW 17.1 H Plt Count Lymph % (Auto) [place] % (Auto) [place] # Seg Neutrophils % Seg Neuts % (Manual) Lymphocytes % (Manual) 11.0 L Monocytes % (Manual) Basophils % (Manual) Nucleated RBC % Seg Neutrophils # Seg Neutrophils # Man 14.0 H Lymphocytes # (Manual) Monocytes # (Manual) Eosinophils # (Manual) Basophils # (Manual) PT INR APTT Heparin Anti-Xa Level 0.17 L 0.15 L POC ABG pH POC ABG pCO2 POC ABG pO2 Sodium Potassium Chloride Carbon Dioxide BUN Creatinine Glucose POC Glucose Calcium Phosphorus Magnesium AST Alkaline Phosphatase C-Reactive Protein Total Protein Albumin Lipase Vitamin B12 TSH Urine WBC (Auto) Urine Chloride Urine Total Protein Vancomycin Trough Crossmatch 10/23/16 10/24/16 10/24/16 Unknown 00:05 05:30 WBC RBC Hgb Hct MCV RDW Plt Count Lymph % (Auto) [place] % (Auto) [place] # Seg Neutrophils % Seg Neuts % (Manual) Lymphocytes % (Manual) Monocytes % (Manual) Basophils % (Manual) Nucleated RBC % Seg Neutrophils # Seg Neutrophils # Man Lymphocytes # (Manual) Monocytes # (Manual) Eosinophils # (Manual) Basophils # (Manual) PT INR APTT Heparin Anti-Xa Level 0.13 L POC ABG pH POC ABG pCO2 POC ABG pO2 Sodium Potassium Chloride 111.2 H Carbon Dioxide 20 L BUN 25 H Creatinine Glucose 227 H POC Glucose 118 H Calcium 7.1 L Phosphorus Magnesium AST Alkaline Phosphatase C-Reactive Protein Total Protein Albumin Lipase Vitamin B12 TSH Urine WBC (Auto) Urine Chloride Urine Total Protein Vancomycin Trough Crossmatch 10/24/16 10/24/16 10/24/16 11:00 11:00 12:06 WBC 17.6 H RBC 2.92 L Hgb 9.2 L Hct 28.3 L MCV RDW 16.9 H Plt Count Lymph % (Auto) [place] % (Auto) [place] # Seg Neutrophils % Seg Neuts % (Manual) Lymphocytes % (Manual) Monocytes % (Manual) Basophils % (Manual) Nucleated RBC % Seg Neutrophils # Seg Neutrophils # Man Lymphocytes # (Manual) Monocytes # (Manual) Eosinophils # (Manual) Basophils # (Manual) PT INR APTT Heparin Anti-Xa Level 0.27 L POC ABG pH POC ABG pCO2 POC ABG pO2 Sodium Potassium Chloride Carbon Dioxide BUN Creatinine Glucose POC Glucose 166 H Calcium Phosphorus Magnesium AST Alkaline Phosphatase C-Reactive Protein Total Protein Albumin Lipase Vitamin B12 TSH Urine WBC (Auto) Urine Chloride Urine Total Protein Vancomycin Trough Crossmatch 10/24/16 10/25/16 10/25/16 12:27 00:49 03:30 WBC RBC Hgb 8.8 L Hct 28.1 L MCV RDW Plt Count Lymph % (Auto) [place] % (Auto) [place] # Seg Neutrophils % Seg Neuts % (Manual) Lymphocytes % (Manual) Monocytes % (Manual) Basophils % (Manual) Nucleated RBC % Seg Neutrophils # Seg Neutrophils # Man Lymphocytes # (Manual) Monocytes # (Manual) Eosinophils # (Manual) Basophils # (Manual) PT INR APTT Heparin Anti-Xa Level POC ABG pH POC ABG pCO2 33.9 L POC ABG pO2 Sodium Potassium Chloride Carbon Dioxide BUN Creatinine Glucose POC Glucose 121 H Calcium Phosphorus Magnesium AST Alkaline Phosphatase C-Reactive Protein Total Protein Albumin Lipase Vitamin B12 TSH Urine WBC (Auto) Urine Chloride Urine Total Protein Vancomycin Trough Crossmatch 10/25/16 10/25/16 10/25/16 09:49 12:10 19:25 WBC 21.1 H RBC 3.02 L Hgb 9.3 L Hct 28.9 L MCV RDW 16.3 H Plt Count Lymph % (Auto) [place] % (Auto) [place] # Seg Neutrophils % Seg Neuts % (Manual) 81.0 H Lymphocytes % (Manual) 9.0 L Monocytes % (Manual) Basophils % (Manual) Nucleated RBC % Seg Neutrophils # Seg Neutrophils # Man 17.1 H Lymphocytes # (Manual) Monocytes # (Manual) Eosinophils # (Manual) Basophils # (Manual) PT INR APTT Heparin Anti-Xa Level POC ABG pH POC ABG pCO2 POC ABG pO2 Sodium Potassium Chloride Carbon Dioxide BUN Creatinine Glucose POC Glucose 158 H 151 H Calcium Phosphorus Magnesium AST Alkaline Phosphatase C-Reactive Protein Total Protein Albumin Lipase Vitamin B12 TSH Urine WBC (Auto) Urine Chloride Urine Total Protein Vancomycin Trough Crossmatch 10/26/16 10/26/16 10/26/16 00:20 01:09 05:02 WBC 22.2 H RBC 2.89 L Hgb 8.7 L Hct 27.8 L MCV RDW 16.4 H Plt Count Lymph % (Auto) [place] % (Auto) [place] # Seg Neutrophils % Seg Neuts % (Manual) Lymphocytes % (Manual) Monocytes % (Manual) Basophils % (Manual) Nucleated RBC % Seg Neutrophils # Seg Neutrophils # Man Lymphocytes # (Manual) Monocytes # (Manual) Eosinophils # (Manual) Basophils # (Manual) PT INR APTT Heparin Anti-Xa Level POC ABG pH POC ABG pCO2 POC ABG pO2 Sodium Potassium Chloride Carbon Dioxide BUN Creatinine Glucose POC Glucose 44 L 112 H Calcium Phosphorus Magnesium AST Alkaline Phosphatase C-Reactive Protein Total Protein Albumin Lipase Vitamin B12 TSH Urine WBC (Auto) Urine Chloride Urine Total Protein Vancomycin Trough Crossmatch 10/26/16 10/26/16 10/26/16 05:02 12:11 12:14 WBC RBC Hgb Hct MCV RDW Plt Count Lymph % (Auto) [place] % (Auto) [place] # Seg Neutrophils % Seg Neuts % (Manual) Lymphocytes % (Manual) Monocytes % (Manual) Basophils % (Manual) Nucleated RBC % Seg Neutrophils # Seg Neutrophils # Man Lymphocytes # (Manual) Monocytes # (Manual) Eosinophils # (Manual) Basophils # (Manual) PT INR APTT Heparin Anti-Xa Level POC ABG pH POC ABG pCO2 32.0 L POC ABG pO2 33 L Sodium Potassium 3.2 L D Chloride Carbon Dioxide 20 L BUN 24 H Creatinine Glucose 104 H POC Glucose 194 H Calcium 7.7 L Phosphorus Magnesium AST Alkaline Phosphatase C-Reactive Protein Total Protein Albumin Lipase Vitamin B12 TSH Urine WBC (Auto) Urine Chloride Urine Total Protein Vancomycin Trough Crossmatch 10/26/16 10/26/16 10/27/16 15:28 17:23 00:04 WBC RBC Hgb Hct MCV RDW Plt Count Lymph % (Auto) [place] % (Auto) [place] # Seg Neutrophils % Seg Neuts % (Manual) Lymphocytes % (Manual) Monocytes % (Manual) Basophils % (Manual) Nucleated RBC % Seg Neutrophils # Seg Neutrophils # Man Lymphocytes # (Manual) Monocytes # (Manual) Eosinophils # (Manual) Basophils # (Manual) PT INR APTT Heparin Anti-Xa Level POC ABG pH POC ABG pCO2 33.7 L POC ABG pO2 Sodium Potassium Chloride Carbon Dioxide BUN Creatinine Glucose POC Glucose 181 H 230 H Calcium Phosphorus Magnesium AST Alkaline Phosphatase C-Reactive Protein Total Protein Albumin Lipase Vitamin B12 TSH Urine WBC (Auto) Urine Chloride Urine Total Protein Vancomycin Trough Crossmatch 10/27/16 10/27/16 10/27/16 05:15 05:15 05:38 WBC 25.5 H RBC 3.07 L Hgb 9.4 L Hct 30.1 L MCV 98 H RDW 16.4 H Plt Count 527 H Lymph % (Auto) [place] % (Auto) [place] # Seg Neutrophils % Seg Neuts % (Manual) Lymphocytes % (Manual) Monocytes % (Manual) Basophils % (Manual) Nucleated RBC % Seg Neutrophils # Seg Neutrophils # Man Lymphocytes # (Manual) Monocytes # (Manual) Eosinophils # (Manual) Basophils # (Manual) PT INR APTT Heparin Anti-Xa Level POC ABG pH POC ABG pCO2 POC ABG pO2 Sodium Potassium Chloride Carbon Dioxide 19 L BUN 23 H Creatinine Glucose 160 H POC Glucose 168 H Calcium 8.0 L Phosphorus Magnesium AST Alkaline Phosphatase C-Reactive Protein Total Protein Albumin Lipase Vitamin B12 TSH Urine WBC (Auto) Urine Chloride Urine Total Protein Vancomycin Trough Crossmatch 10/27/16 10/27/16 10/27/16 11:59 18:35 23:48 WBC RBC Hgb Hct MCV RDW Plt Count Lymph % (Auto) [place] % (Auto) [place] # Seg Neutrophils % Seg Neuts % (Manual) Lymphocytes % (Manual) Monocytes % (Manual) Basophils % (Manual) Nucleated RBC % Seg Neutrophils # Seg Neutrophils # Man Lymphocytes # (Manual) Monocytes # (Manual) Eosinophils # (Manual) Basophils # (Manual) PT INR APTT Heparin Anti-Xa Level POC ABG pH POC ABG pCO2 POC ABG pO2 Sodium Potassium Chloride Carbon Dioxide BUN Creatinine Glucose POC Glucose 197 H 318 H 316 H Calcium Phosphorus Magnesium AST Alkaline Phosphatase C-Reactive Protein Total Protein Albumin Lipase Vitamin B12 TSH Urine WBC (Auto) Urine Chloride Urine Total Protein Vancomycin Trough Crossmatch 10/28/16 10/28/16 10/28/16 03:13 04:10 04:10 WBC 18.8 H RBC 2.64 L Hgb 8.1 L Hct 26.1 L MCV 99 H RDW 16.2 H Plt Count 544 H Lymph % (Auto) [place] % (Auto) [place] # Seg Neutrophils % Seg Neuts % (Manual) Lymphocytes % (Manual) Monocytes % (Manual) Basophils % (Manual) Nucleated RBC % Seg Neutrophils # Seg Neutrophils # Man Lymphocytes # (Manual) Monocytes # (Manual) Eosinophils # (Manual) Basophils # (Manual) PT INR APTT Heparin Anti-Xa Level POC ABG pH POC ABG pCO2 POC ABG pO2 Sodium Potassium Chloride Carbon Dioxide 21 L BUN 24 H Creatinine Glucose 302 H POC Glucose 304 H Calcium 7.7 L Phosphorus Magnesium AST Alkaline Phosphatase C-Reactive Protein Total Protein Albumin Lipase Vitamin B12 TSH Urine WBC (Auto) Urine Chloride Urine Total Protein Vancomycin Trough Crossmatch 10/28/16 10/28/16 10/28/16 04:10 12:36 18:27 WBC RBC Hgb Hct MCV RDW Plt Count Lymph % (Auto) [place] % (Auto) [place] # Seg Neutrophils % Seg Neuts % (Manual) Lymphocytes % (Manual) Monocytes % (Manual) Basophils % (Manual) Nucleated RBC % Seg Neutrophils # Seg Neutrophils # Man Lymphocytes # (Manual) Monocytes # (Manual) Eosinophils # (Manual) Basophils # (Manual) PT INR APTT Heparin Anti-Xa Level 0.20 L POC ABG pH POC ABG pCO2 POC ABG pO2 Sodium Potassium Chloride Carbon Dioxide BUN Creatinine Glucose POC Glucose 205 H 339 H Calcium Phosphorus Magnesium AST Alkaline Phosphatase C-Reactive Protein Total Protein Albumin Lipase Vitamin B12 TSH Urine WBC (Auto) Urine Chloride Urine Total Protein Vancomycin Trough Crossmatch 10/29/16 10/29/16 10/29/16 01:05 06:19 09:30 WBC 20.3 H RBC 2.80 L Hgb 8.5 L Hct 26.7 L MCV RDW 15.4 H Plt Count 571 H Lymph % (Auto) [place] % (Auto) [place] # Seg Neutrophils % Seg Neuts % (Manual) 75.0 H Lymphocytes % (Manual) 4.0 L Monocytes % (Manual) Basophils % (Manual) Nucleated RBC % Seg Neutrophils # Seg Neutrophils # Man 15.2 H Lymphocytes # (Manual) 0.8 L Monocytes # (Manual) Eosinophils # (Manual) Basophils # (Manual) PT INR APTT Heparin Anti-Xa Level POC ABG pH POC ABG pCO2 POC ABG pO2 Sodium Potassium Chloride Carbon Dioxide BUN Creatinine Glucose POC Glucose 275 H 179 H Calcium Phosphorus Magnesium AST Alkaline Phosphatase C-Reactive Protein Total Protein Albumin Lipase Vitamin B12 TSH Urine WBC (Auto) Urine Chloride Urine Total Protein Vancomycin Trough Crossmatch 10/29/16 10/29/16 10/29/16 11:46 15:18 17:55 WBC RBC Hgb Hct MCV RDW Plt Count Lymph % (Auto) [place] % (Auto) [place] # Seg Neutrophils % Seg Neuts % (Manual) Lymphocytes % (Manual) Monocytes % (Manual) Basophils % (Manual) Nucleated RBC % Seg Neutrophils # Seg Neutrophils # Man Lymphocytes # (Manual) Monocytes # (Manual) Eosinophils # (Manual) Basophils # (Manual) PT INR APTT Heparin Anti-Xa Level 1.15 H POC ABG pH POC ABG pCO2 POC ABG pO2 Sodium Potassium Chloride Carbon Dioxide BUN Creatinine Glucose POC Glucose 122 H 255 H Calcium Phosphorus Magnesium AST Alkaline Phosphatase C-Reactive Protein Total Protein Albumin Lipase Vitamin B12 TSH Urine WBC (Auto) Urine Chloride Urine Total Protein Vancomycin Trough Crossmatch 10/30/16 10/30/16 10/30/16 00:10 05:30 05:30 WBC 19.8 H RBC 2.51 L Hgb 7.7 L Hct 24.1 L MCV RDW 15.5 H Plt Count 534 H Lymph % (Auto) [place] % (Auto) [place] # Seg Neutrophils % Seg Neuts % (Manual) Lymphocytes % (Manual) Monocytes % (Manual) Basophils % (Manual) Nucleated RBC % Seg Neutrophils # Seg Neutrophils # Man Lymphocytes # (Manual) Monocytes # (Manual) Eosinophils # (Manual) Basophils # (Manual) PT INR APTT Heparin Anti-Xa Level POC ABG pH POC ABG pCO2 POC ABG pO2 Sodium Potassium Chloride Carbon Dioxide BUN Creatinine Glucose 211 H POC Glucose 202 H Calcium 7.4 L Phosphorus Magnesium AST Alkaline Phosphatase C-Reactive Protein Total Protein Albumin Lipase Vitamin B12 TSH Urine WBC (Auto) Urine Chloride Urine Total Protein Vancomycin Trough Crossmatch 10/30/16 10/30/16 10/30/16 06:32 12:51 17:47 WBC RBC Hgb Hct MCV RDW Plt Count Lymph % (Auto) [place] % (Auto) [place] # Seg Neutrophils % Seg Neuts % (Manual) Lymphocytes % (Manual) Monocytes % (Manual) Basophils % (Manual) Nucleated RBC % Seg Neutrophils # Seg Neutrophils # Man Lymphocytes # (Manual) Monocytes # (Manual) Eosinophils # (Manual) Basophils # (Manual) PT INR APTT Heparin Anti-Xa Level POC ABG pH POC ABG pCO2 POC ABG pO2 Sodium Potassium Chloride Carbon Dioxide BUN Creatinine Glucose POC Glucose 207 H 218 H 169 H Calcium Phosphorus Magnesium AST Alkaline Phosphatase C-Reactive Protein Total Protein Albumin Lipase Vitamin B12 TSH Urine WBC (Auto) Urine Chloride Urine Total Protein Vancomycin Trough Crossmatch 10/30/16 10/31/16 10/31/16 23:59 05:25 11:21 WBC RBC Hgb Hct MCV RDW Plt Count Lymph % (Auto) [place] % (Auto) [place] # Seg Neutrophils % Seg Neuts % (Manual) Lymphocytes % (Manual) Monocytes % (Manual) Basophils % (Manual) Nucleated RBC % Seg Neutrophils # Seg Neutrophils # Man Lymphocytes # (Manual) Monocytes # (Manual) Eosinophils # (Manual) Basophils # (Manual) PT INR APTT Heparin Anti-Xa Level POC ABG pH POC ABG pCO2 POC ABG pO2 Sodium Potassium Chloride Carbon Dioxide BUN Creatinine Glucose POC Glucose 138 H 127 H 132 H Calcium Phosphorus Magnesium AST Alkaline Phosphatase C-Reactive Protein Total Protein Albumin Lipase Vitamin B12 TSH Urine WBC (Auto) Urine Chloride Urine Total Protein Vancomycin Trough Crossmatch 10/31/16 10/31/16 11/01/16 17:07 23:54 05:47 WBC RBC Hgb Hct MCV RDW Plt Count Lymph % (Auto) [place] % (Auto) [place] # Seg Neutrophils % Seg Neuts % (Manual) Lymphocytes % (Manual) Monocytes % (Manual) Basophils % (Manual) Nucleated RBC % Seg Neutrophils # Seg Neutrophils # Man Lymphocytes # (Manual) Monocytes # (Manual) Eosinophils # (Manual) Basophils # (Manual) PT INR APTT Heparin Anti-Xa Level POC ABG pH POC ABG pCO2 POC ABG pO2 Sodium Potassium Chloride Carbon Dioxide BUN Creatinine Glucose POC Glucose 138 H 153 H 150 H Calcium Phosphorus Magnesium AST Alkaline Phosphatase C-Reactive Protein Total Protein Albumin Lipase Vitamin B12 TSH Urine WBC (Auto) Urine Chloride Urine Total Protein Vancomycin Trough Crossmatch 11/01/16 11/01/16 11/01/16 06:33 06:33 12:16 WBC 19.2 H RBC 2.51 L Hgb 7.9 L Hct 24.8 L MCV 99 H D RDW 16.1 H Plt Count 569 H Lymph % (Auto) [place] % (Auto) [place] # Seg Neutrophils % Seg Neuts % (Manual) Lymphocytes % (Manual) Monocytes % (Manual) Basophils % (Manual) Nucleated RBC % Seg Neutrophils # Seg Neutrophils # Man Lymphocytes # (Manual) Monocytes # (Manual) Eosinophils # (Manual) Basophils # (Manual) PT INR APTT Heparin Anti-Xa Level POC ABG pH POC ABG pCO2 POC ABG pO2 Sodium Potassium 3.5 L Chloride Carbon Dioxide 21 L BUN Creatinine Glucose 137 H POC Glucose 125 H Calcium 7.7 L Phosphorus Magnesium AST Alkaline Phosphatase 148 H C-Reactive Protein Total Protein 6.2 L Albumin 2.0 L Lipase Vitamin B12 TSH Urine WBC (Auto) Urine Chloride Urine Total Protein Vancomycin Trough Crossmatch 11/01/16 11/02/16 11/02/16 17:37 00:05 04:15 WBC RBC Hgb Hct MCV RDW Plt Count Lymph % (Auto) [place] % (Auto) [place] # Seg Neutrophils % Seg Neuts % (Manual) Lymphocytes % (Manual) Monocytes % (Manual) Basophils % (Manual) Nucleated RBC % Seg Neutrophils # Seg Neutrophils # Man Lymphocytes # (Manual) Monocytes # (Manual) Eosinophils # (Manual) Basophils # (Manual) PT INR APTT Heparin Anti-Xa Level < 0.10 L POC ABG pH POC ABG pCO2 POC ABG pO2 Sodium Potassium 3.2 L Chloride Carbon Dioxide BUN 6 L Creatinine Glucose 135 H POC Glucose 164 H Calcium 7.5 L Phosphorus Magnesium AST Alkaline Phosphatase 132 H C-Reactive Protein Total Protein 6.2 L Albumin 1.8 L Lipase Vitamin B12 TSH Urine WBC (Auto) Urine Chloride Urine Total Protein Vancomycin Trough Crossmatch 11/02/16 11/02/16 11/02/16 04:15 05:54 12:15 WBC 17.7 H RBC 2.43 L Hgb 7.6 L Hct 23.5 L MCV RDW 15.9 H Plt Count 502 H Lymph % (Auto) [place] % (Auto) [place] # Seg Neutrophils % Seg Neuts % (Manual) 84.0 H Lymphocytes % (Manual) 11.0 L Monocytes % (Manual) Basophils % (Manual) Nucleated RBC % 1.0 H Seg Neutrophils # Seg Neutrophils # Man 14.9 H Lymphocytes # (Manual) Monocytes # (Manual) Eosinophils # (Manual) Basophils # (Manual) PT INR APTT Heparin Anti-Xa Level POC ABG pH POC ABG pCO2 POC ABG pO2 Sodium Potassium Chloride Carbon Dioxide BUN Creatinine Glucose POC Glucose 152 H 137 H Calcium Phosphorus Magnesium AST Alkaline Phosphatase C-Reactive Protein Total Protein Albumin Lipase Vitamin B12 TSH Urine WBC (Auto) Urine Chloride Urine Total Protein Vancomycin Trough Crossmatch 11/02/16 11/03/16 11/03/16 17:00 00:05 00:05 WBC RBC Hgb Hct MCV RDW Plt Count Lymph % (Auto) [place] % (Auto) [place] # Seg Neutrophils % Seg Neuts % (Manual) Lymphocytes % (Manual) Monocytes % (Manual) Basophils % (Manual) Nucleated RBC % Seg Neutrophils # Seg Neutrophils # Man Lymphocytes # (Manual) Monocytes # (Manual) Eosinophils # (Manual) Basophils # (Manual) PT INR APTT Heparin Anti-Xa Level POC ABG pH POC ABG pCO2 POC ABG pO2 Sodium Potassium Chloride Carbon Dioxide 20 L BUN 5 L Creatinine Glucose 139 H POC Glucose 161 H Calcium 6.7 L Phosphorus Magnesium 1.2 L AST Alkaline Phosphatase C-Reactive Protein Total Protein Albumin Lipase Vitamin B12 TSH Urine WBC (Auto) Urine Chloride Urine Total Protein Vancomycin Trough Crossmatch 11/03/16 11/03/16 11/03/16 00:05 02:05 04:23 WBC 15.9 H 14.0 H RBC 1.93 L 2.38 L Hgb 5.9 L* 7.3 L Hct 18.9 L* 23.1 L MCV 98 H RDW 15.9 H 15.9 H Plt Count Lymph % (Auto) [place] % (Auto) [place] # Seg Neutrophils % Seg Neuts % (Manual) 85.0 H Lymphocytes % (Manual) 4.0 L Monocytes % (Manual) Basophils % (Manual) Nucleated RBC % Seg Neutrophils # Seg Neutrophils # Man 13.5 H Lymphocytes # (Manual) 0.6 L Monocytes # (Manual) Eosinophils # (Manual) Basophils # (Manual) PT INR APTT Heparin Anti-Xa Level POC ABG pH POC ABG pCO2 POC ABG pO2 Sodium Potassium Chloride Carbon Dioxide BUN 5 L Creatinine Glucose 127 H POC Glucose Calcium 7.2 L Phosphorus Magnesium AST Alkaline Phosphatase C-Reactive Protein Total Protein 5.8 L Albumin 1.5 L Lipase Vitamin B12 TSH Urine WBC (Auto) Urine Chloride Urine Total Protein Vancomycin Trough Crossmatch 11/03/16 11/03/16 11/03/16 09:14 09:27 11:54 WBC RBC Hgb Hct MCV RDW Plt Count Lymph % (Auto) [place] % (Auto) [place] # Seg Neutrophils % Seg Neuts % (Manual) Lymphocytes % (Manual) Monocytes % (Manual) Basophils % (Manual) Nucleated RBC % Seg Neutrophils # Seg Neutrophils # Man Lymphocytes # (Manual) Monocytes # (Manual) Eosinophils # (Manual) Basophils # (Manual) PT INR APTT Heparin Anti-Xa Level 0.11 L POC ABG pH POC ABG pCO2 POC ABG pO2 Sodium Potassium Chloride Carbon Dioxide BUN 5 L Creatinine Glucose 111 H POC Glucose 139 H Calcium 6.7 L Phosphorus Magnesium AST Alkaline Phosphatase C-Reactive Protein Total Protein Albumin Lipase Vitamin B12 TSH Urine WBC (Auto) Urine Chloride Urine Total Protein Vancomycin Trough Crossmatch 11/03/16 11/03/16 11/03/16 16:26 18:01 18:01 WBC RBC Hgb Hct MCV RDW Plt Count Lymph % (Auto) [place] % (Auto) [place] # Seg Neutrophils % Seg Neuts % (Manual) Lymphocytes % (Manual) Monocytes % (Manual) Basophils % (Manual) Nucleated RBC % Seg Neutrophils # Seg Neutrophils # Man Lymphocytes # (Manual) Monocytes # (Manual) Eosinophils # (Manual) Basophils # (Manual) PT INR APTT Heparin Anti-Xa Level 2.00 H POC ABG pH POC ABG pCO2 POC ABG pO2 Sodium Potassium Chloride Carbon Dioxide BUN Creatinine Glucose POC Glucose 142 H Calcium Phosphorus Magnesium AST Alkaline Phosphatase C-Reactive Protein Total Protein Albumin Lipase Vitamin B12 TSH Urine WBC (Auto) Urine Chloride Urine Total Protein Vancomycin Trough Crossmatch See Detail 11/04/16 11/04/16 11/04/16 02:15 02:15 06:35 WBC 11.8 H RBC 2.39 L Hgb 7.4 L Hct 23.1 L MCV RDW 15.9 H Plt Count Lymph % (Auto) [place] % (Auto) [place] # Seg Neutrophils % Seg Neuts % (Manual) 76.0 H Lymphocytes % (Manual) 12.0 L Monocytes % (Manual) 9.0 H Basophils % (Manual) Nucleated RBC % Seg Neutrophils # Seg Neutrophils # Man 9.0 H Lymphocytes # (Manual) Monocytes # (Manual) 1.1 H Eosinophils # (Manual) Basophils # (Manual) PT INR APTT Heparin Anti-Xa Level < 0.10 L POC ABG pH POC ABG pCO2 POC ABG pO2 Sodium Potassium Chloride Carbon Dioxide 21 L BUN 5 L Creatinine Glucose 112 H POC Glucose Calcium 6.8 L Phosphorus Magnesium AST Alkaline Phosphatase C-Reactive Protein Total Protein 5.7 L Albumin 1.7 L Lipase Vitamin B12 TSH Urine WBC (Auto) Urine Chloride Urine Total Protein Vancomycin Trough Crossmatch 11/04/16 11/04/16 11/04/16 10:51 12:58 15:04 WBC RBC Hgb Hct MCV RDW Plt Count Lymph % (Auto) [place] % (Auto) [place] # Seg Neutrophils % Seg Neuts % (Manual) Lymphocytes % (Manual) Monocytes % (Manual) Basophils % (Manual) Nucleated RBC % Seg Neutrophils # Seg Neutrophils # Man Lymphocytes # (Manual) Monocytes # (Manual) Eosinophils # (Manual) Basophils # (Manual) PT INR APTT Heparin Anti-Xa Level 1.05 H POC ABG pH POC ABG pCO2 33.7 L POC ABG pO2 60 L Sodium Potassium Chloride Carbon Dioxide BUN Creatinine Glucose POC Glucose 118 H Calcium Phosphorus Magnesium AST Alkaline Phosphatase C-Reactive Protein Total Protein Albumin Lipase Vitamin B12 TSH Urine WBC (Auto) Urine Chloride Urine Total Protein Vancomycin Trough Crossmatch 0311/04/16 11/05/16 17:20 20:31 02:30 WBC RBC Hgb Hct MCV RDW Plt Count Lymph % (Auto) [place] % (Auto) [place] # Seg Neutrophils % Seg Neuts % (Manual) Lymphocytes % (Manual) Monocytes % (Manual) Basophils % (Manual) Nucleated RBC % Seg Neutrophils # Seg Neutrophils # Man Lymphocytes # (Manual) Monocytes # (Manual) Eosinophils # (Manual) Basophils # (Manual) PT INR APTT Heparin Anti-Xa Level POC ABG pH POC ABG pCO2 POC ABG pO2 Sodium Potassium 3.5 L Chloride Carbon Dioxide 18 L BUN 5 L Creatinine 0.6 L Glucose 110 H POC Glucose 228 H 169 H Calcium 7.1 L Phosphorus Magnesium AST Alkaline Phosphatase C-Reactive Protein Total Protein Albumin 1.9 L Lipase Vitamin B12 TSH Urine WBC (Auto) Urine Chloride Urine Total Protein Vancomycin Trough Crossmatch 11/05/16 11/05/16 11/05/16 02:30 17:52 21:07 WBC 14.1 H RBC Hgb Hct MCV RDW 16.7 H Plt Count Lymph % (Auto) [place] % (Auto) [place] # Seg Neutrophils % Seg Neuts % (Manual) 80.0 H Lymphocytes % (Manual) 6.0 L Monocytes % (Manual) 8.0 H Basophils % (Manual) Nucleated RBC % Seg Neutrophils # Seg Neutrophils # Man 11.3 H Lymphocytes # (Manual) 0.8 L Monocytes # (Manual) 1.1 H Eosinophils # (Manual) Basophils # (Manual) PT INR APTT Heparin Anti-Xa Level < 0.10 L POC ABG pH POC ABG pCO2 POC ABG pO2 Sodium Potassium Chloride Carbon Dioxide BUN Creatinine Glucose POC Glucose 174 H Calcium Phosphorus Magnesium AST Alkaline Phosphatase C-Reactive Protein Total Protein Albumin Lipase Vitamin B12 TSH Urine WBC (Auto) Urine Chloride Urine Total Protein Vancomycin Trough Crossmatch 11/05/16 11/06/16 11/06/16 23:30 05:00 05:00 WBC 15.2 H RBC 3.29 L Hgb 10.0 L Hct MCV RDW 16.9 H Plt Count Lymph % (Auto) [place] % (Auto) [place] # Seg Neutrophils % Seg Neuts % (Manual) Lymphocytes % (Manual) Monocytes % (Manual) Basophils % (Manual) Nucleated RBC % Seg Neutrophils # Seg Neutrophils # Man Lymphocytes # (Manual) Monocytes # (Manual) Eosinophils # (Manual) Basophils # (Manual) PT INR APTT Heparin Anti-Xa Level 0.94 H POC ABG pH POC ABG pCO2 POC ABG pO2 Sodium Potassium Chloride Carbon Dioxide BUN Creatinine Glucose POC Glucose 131 H Calcium Phosphorus Magnesium AST Alkaline Phosphatase C-Reactive Protein Total Protein Albumin Lipase Vitamin B12 TSH Urine WBC (Auto) Urine Chloride Urine Total Protein Vancomycin Trough Crossmatch 11/06/16 11/06/16 11/06/16 05:00 11:45 18:23 WBC RBC Hgb Hct MCV RDW Plt Count Lymph % (Auto) [place] % (Auto) [place] # Seg Neutrophils % Seg Neuts % (Manual) Lymphocytes % (Manual) Monocytes % (Manual) Basophils % (Manual) Nucleated RBC % Seg Neutrophils # Seg Neutrophils # Man Lymphocytes # (Manual) Monocytes # (Manual) Eosinophils # (Manual) Basophils # (Manual) PT INR APTT Heparin Anti-Xa Level POC ABG pH POC ABG pCO2 POC ABG pO2 Sodium Potassium 3.5 L Chloride 107.1 H Carbon Dioxide 20 L BUN 4 L Creatinine 0.6 L Glucose 104 H POC Glucose 141 H 255 H Calcium 6.7 L Phosphorus Magnesium AST Alkaline Phosphatase C-Reactive Protein Total Protein Albumin Lipase Vitamin B12 TSH Urine WBC (Auto) Urine Chloride Urine Total Protein Vancomycin Trough Crossmatch 11/06/16 11/06/16 11/07/16 22:07 23:07 11:41 WBC RBC Hgb Hct MCV RDW Plt Count Lymph % (Auto) [place] % (Auto) [place] # Seg Neutrophils % Seg Neuts % (Manual) Lymphocytes % (Manual) Monocytes % (Manual) Basophils % (Manual) Nucleated RBC % Seg Neutrophils # Seg Neutrophils # Man Lymphocytes # (Manual) Monocytes # (Manual) Eosinophils # (Manual) Basophils # (Manual) PT INR APTT Heparin Anti-Xa Level 0.80 H POC ABG pH POC ABG pCO2 POC ABG pO2 Sodium Potassium Chloride Carbon Dioxide BUN Creatinine Glucose POC Glucose 183 H 132 H Calcium Phosphorus Magnesium AST Alkaline Phosphatase C-Reactive Protein Total Protein Albumin Lipase Vitamin B12 TSH Urine WBC (Auto) Urine Chloride Urine Total Protein Vancomycin Trough Crossmatch 11/07/16 11/07/16 11/07/16 12:17 17:05 17:58 WBC RBC Hgb Hct MCV RDW Plt Count Lymph % (Auto) [place] % (Auto) [place] # Seg Neutrophils % Seg Neuts % (Manual) Lymphocytes % (Manual) Monocytes % (Manual) Basophils % (Manual) Nucleated RBC % Seg Neutrophils # Seg Neutrophils # Man Lymphocytes # (Manual) Monocytes # (Manual) Eosinophils # (Manual) Basophils # (Manual) PT INR APTT Heparin Anti-Xa Level 0.87 H POC ABG pH 7.324 L POC ABG pCO2 POC ABG pO2 Sodium Potassium Chloride Carbon Dioxide BUN Creatinine Glucose POC Glucose 158 H Calcium Phosphorus Magnesium AST Alkaline Phosphatase C-Reactive Protein Total Protein Albumin Lipase Vitamin B12 TSH Urine WBC (Auto) Urine Chloride Urine Total Protein Vancomycin Trough Crossmatch 11/07/16 11/07/16 11/07/16 23:26 Unknown Unknown WBC 12.3 H RBC 2.96 L Hgb 9.1 L Hct 27.9 L MCV RDW 16.8 H Plt Count Lymph % (Auto) [place] % (Auto) [place] # Seg Neutrophils % Seg Neuts % (Manual) 80.0 H Lymphocytes % (Manual) 7.0 L Monocytes % (Manual) Basophils % (Manual) Nucleated RBC % Seg Neutrophils # Seg Neutrophils # Man 9.8 H Lymphocytes # (Manual) 0.9 L Monocytes # (Manual) Eosinophils # (Manual) Basophils # (Manual) PT INR APTT Heparin Anti-Xa Level POC ABG pH POC ABG pCO2 POC ABG pO2 Sodium Potassium Chloride Carbon Dioxide 19 L BUN Creatinine Glucose 106 H POC Glucose 130 H Calcium 6.9 L Phosphorus Magnesium AST Alkaline Phosphatase C-Reactive Protein Total Protein Albumin Lipase Vitamin B12 TSH Urine WBC (Auto) Urine Chloride Urine Total Protein Vancomycin Trough Crossmatch 11/07/16 11/08/16 11/08/16 Unknown 05:14 05:20 WBC 12.4 H RBC 3.04 L Hgb 9.2 L Hct 28.8 L MCV RDW 16.6 H Plt Count Lymph % (Auto) [place] % (Auto) [place] # Seg Neutrophils % Seg Neuts % (Manual) 77.0 H Lymphocytes % (Manual) 5.0 L Monocytes % (Manual) Basophils % (Manual) 2.0 H Nucleated RBC % Seg Neutrophils # Seg Neutrophils # Man 9.5 H Lymphocytes # (Manual) 0.6 L Monocytes # (Manual) Eosinophils # (Manual) Basophils # (Manual) 0.2 H PT INR APTT Heparin Anti-Xa Level 0.90 H POC ABG pH POC ABG pCO2 POC ABG pO2 Sodium Potassium Chloride Carbon Dioxide BUN Creatinine Glucose POC Glucose 204 H Calcium Phosphorus Magnesium AST Alkaline Phosphatase C-Reactive Protein Total Protein Albumin Lipase Vitamin B12 TSH Urine WBC (Auto) Urine Chloride Urine Total Protein Vancomycin Trough Crossmatch 11/08/16 11/08/16 11/08/16 05:20 12:10 13:10 WBC RBC Hgb Hct MCV RDW Plt Count Lymph % (Auto) [place] % (Auto) [place] # Seg Neutrophils % Seg Neuts % (Manual) Lymphocytes % (Manual) Monocytes % (Manual) Basophils % (Manual) Nucleated RBC % Seg Neutrophils # Seg Neutrophils # Man Lymphocytes # (Manual) Monocytes # (Manual) Eosinophils # (Manual) Basophils # (Manual) PT INR APTT Heparin Anti-Xa Level POC ABG pH POC ABG pCO2 33.7 L POC ABG pO2 Sodium 136 L Potassium Chloride Carbon Dioxide 19 L BUN Creatinine Glucose 192 H POC Glucose 180 H Calcium 7.1 L Phosphorus Magnesium AST Alkaline Phosphatase C-Reactive Protein Total Protein Albumin Lipase Vitamin B12 TSH Urine WBC (Auto) Urine Chloride Urine Total Protein Vancomycin Trough Crossmatch 11/08/16 11/08/16 11/08/16 17:26 20:45 23:34 WBC RBC Hgb Hct MCV RDW Plt Count Lymph % (Auto) [place] % (Auto) [place] # Seg Neutrophils % Seg Neuts % (Manual) Lymphocytes % (Manual) Monocytes % (Manual) Basophils % (Manual) Nucleated RBC % Seg Neutrophils # Seg Neutrophils # Man Lymphocytes # (Manual) Monocytes # (Manual) Eosinophils # (Manual) Basophils # (Manual) PT INR APTT Heparin Anti-Xa Level POC ABG pH POC ABG pCO2 POC ABG pO2 Sodium Potassium Chloride Carbon Dioxide BUN Creatinine Glucose POC Glucose 187 H 178 H Calcium Phosphorus Magnesium AST Alkaline Phosphatase C-Reactive Protein Total Protein Albumin Lipase Vitamin B12 TSH Urine WBC (Auto) Urine Chloride Urine Total Protein Vancomycin Trough 35.4 H Crossmatch 11/09/16 11/09/16 11/09/16 05:30 05:30 05:59 WBC 11.5 H RBC 2.96 L Hgb 9.2 L Hct 28.2 L MCV RDW 16.4 H Plt Count Lymph % (Auto) [place] % (Auto) [place] # Seg Neutrophils % Seg Neuts % (Manual) 76.0 H Lymphocytes % (Manual) 2.0 L Monocytes % (Manual) Basophils % (Manual) Nucleated RBC % Seg Neutrophils # Seg Neutrophils # Man 8.7 H Lymphocytes # (Manual) 0.2 L Monocytes # (Manual) Eosinophils # (Manual) Basophils # (Manual) PT INR APTT Heparin Anti-Xa Level POC ABG pH POC ABG pCO2 POC ABG pO2 Sodium Potassium 3.4 L Chloride 107.6 H Carbon Dioxide 19 L BUN Creatinine 0.6 L Glucose 207 H POC Glucose 263 H Calcium 7.3 L Phosphorus Magnesium AST Alkaline Phosphatase C-Reactive Protein Total Protein Albumin Lipase Vitamin B12 TSH Urine WBC (Auto) Urine Chloride Urine Total Protein Vancomycin Trough Crossmatch 11/09/16 11/09/16 11/09/16 11:49 15:24 18:04 WBC RBC Hgb Hct MCV RDW Plt Count Lymph % (Auto) [place] % (Auto) [place] # Seg Neutrophils % Seg Neuts % (Manual) Lymphocytes % (Manual) Monocytes % (Manual) Basophils % (Manual) Nucleated RBC % Seg Neutrophils # Seg Neutrophils # Man Lymphocytes # (Manual) Monocytes # (Manual) Eosinophils # (Manual) Basophils # (Manual) PT INR APTT Heparin Anti-Xa Level POC ABG pH POC ABG pCO2 33.8 L POC ABG pO2 131 H Sodium Potassium Chloride Carbon Dioxide BUN Creatinine Glucose POC Glucose 269 H 242 H Calcium Phosphorus Magnesium AST Alkaline Phosphatase C-Reactive Protein Total Protein Albumin Lipase Vitamin B12 TSH Urine WBC (Auto) Urine Chloride Urine Total Protein Vancomycin Trough Crossmatch 11/09/16 11/10/16 11/10/16 22:57 04:30 04:30 WBC 15.7 H RBC 3.17 L Hgb 9.7 L Hct 30.2 L MCV RDW 16.2 H Plt Count Lymph % (Auto) [place] % (Auto) [place] # Seg Neutrophils % Seg Neuts % (Manual) Lymphocytes % (Manual) Monocytes % (Manual) Basophils % (Manual) Nucleated RBC % Seg Neutrophils # Seg Neutrophils # Man 8.5 H Lymphocytes # (Manual) Monocytes # (Manual) Eosinophils # (Manual) 0.5 H Basophils # (Manual) PT INR APTT Heparin Anti-Xa Level POC ABG pH POC ABG pCO2 POC ABG pO2 Sodium Potassium Chloride Carbon Dioxide 19 L BUN Creatinine 0.6 L Glucose 199 H POC Glucose 239 H Calcium 7.8 L Phosphorus Magnesium AST Alkaline Phosphatase C-Reactive Protein Total Protein Albumin Lipase Vitamin B12 TSH Urine WBC (Auto) Urine Chloride Urine Total Protein Vancomycin Trough Crossmatch 11/10/16 11/10/16 11/10/16 04:30 11:32 16:00 WBC RBC Hgb Hct MCV RDW Plt Count Lymph % (Auto) [place] % (Auto) [place] # Seg Neutrophils % Seg Neuts % (Manual) Lymphocytes % (Manual) Monocytes % (Manual) Basophils % (Manual) Nucleated RBC % Seg Neutrophils # Seg Neutrophils # Man Lymphocytes # (Manual) Monocytes # (Manual) Eosinophils # (Manual) Basophils # (Manual) PT INR APTT Heparin Anti-Xa Level 1.09 H < 0.10 L POC ABG pH POC ABG pCO2 POC ABG pO2 Sodium Potassium Chloride Carbon Dioxide BUN Creatinine Glucose POC Glucose 211 H Calcium Phosphorus Magnesium AST Alkaline Phosphatase C-Reactive Protein Total Protein Albumin Lipase Vitamin B12 TSH Urine WBC (Auto) Urine Chloride Urine Total Protein Vancomycin Trough Crossmatch 11/10/16 11/10/16 11/10/16 17:39 18:00 23:06 WBC RBC Hgb Hct MCV RDW Plt Count Lymph % (Auto) [place] % (Auto) [place] # Seg Neutrophils % Seg Neuts % (Manual) Lymphocytes % (Manual) Monocytes % (Manual) Basophils % (Manual) Nucleated RBC % Seg Neutrophils # Seg Neutrophils # Man Lymphocytes # (Manual) Monocytes # (Manual) Eosinophils # (Manual) Basophils # (Manual) PT INR APTT Heparin Anti-Xa Level 0.85 H POC ABG pH POC ABG pCO2 POC ABG pO2 Sodium Potassium Chloride Carbon Dioxide BUN Creatinine Glucose POC Glucose 249 H 220 H Calcium Phosphorus Magnesium AST Alkaline Phosphatase C-Reactive Protein Total Protein Albumin Lipase Vitamin B12 TSH Urine WBC (Auto) Urine Chloride Urine Total Protein Vancomycin Trough Crossmatch 11/11/16 11/11/16 11/11/16 05:56 06:15 06:15 WBC 13.3 H RBC 2.87 L Hgb 8.7 L Hct 27.2 L MCV RDW 16.4 H Plt Count Lymph % (Auto) [place] % (Auto) [place] # 0.9 H Seg Neutrophils % 78.9 H Seg Neuts % (Manual) Lymphocytes % (Manual) Monocytes % (Manual) Basophils % (Manual) Nucleated RBC % Seg Neutrophils # 10.5 H Seg Neutrophils # Man Lymphocytes # (Manual) Monocytes # (Manual) Eosinophils # (Manual) Basophils # (Manual) PT INR APTT Heparin Anti-Xa Level POC ABG pH POC ABG pCO2 POC ABG pO2 Sodium Potassium 3.2 L Chloride Carbon Dioxide 19 L BUN Creatinine Glucose POC Glucose 117 H Calcium 7.6 L Phosphorus Magnesium AST Alkaline Phosphatase C-Reactive Protein Total Protein Albumin Lipase Vitamin B12 TSH Urine WBC (Auto) Urine Chloride Urine Total Protein Vancomycin Trough Crossmatch 11/11/16 11/11/16 11/11/16 12:26 16:58 17:33 WBC RBC Hgb Hct MCV RDW Plt Count Lymph % (Auto) [place] % (Auto) [place] # Seg Neutrophils % Seg Neuts % (Manual) Lymphocytes % (Manual) Monocytes % (Manual) Basophils % (Manual) Nucleated RBC % Seg Neutrophils # Seg Neutrophils # Man Lymphocytes # (Manual) Monocytes # (Manual) Eosinophils # (Manual) Basophils # (Manual) PT INR APTT Heparin Anti-Xa Level < 0.10 L POC ABG pH POC ABG pCO2 POC ABG pO2 Sodium Potassium Chloride Carbon Dioxide BUN Creatinine Glucose POC Glucose 114 H 161 H Calcium Phosphorus Magnesium AST Alkaline Phosphatase C-Reactive Protein Total Protein Albumin Lipase Vitamin B12 TSH Urine WBC (Auto) Urine Chloride Urine Total Protein Vancomycin Trough Crossmatch 11/12/16 11/12/16 11/12/16 05:00 05:00 05:00 WBC 12.8 H RBC 2.75 L Hgb 8.4 L Hct 25.7 L MCV RDW 16.3 H Plt Count Lymph % (Auto) [place] % (Auto) 7.5 H [place] # 1.0 H Seg Neutrophils % 78.0 H Seg Neuts % (Manual) Lymphocytes % (Manual) Monocytes % (Manual) Basophils % (Manual) Nucleated RBC % Seg Neutrophils # 10.0 H Seg Neutrophils # Man Lymphocytes # (Manual) Monocytes # (Manual) Eosinophils # (Manual) Basophils # (Manual) PT INR APTT Heparin Anti-Xa Level 0.87 H POC ABG pH POC ABG pCO2 POC ABG pO2 Sodium Potassium 3.4 L Chloride Carbon Dioxide 19 L BUN Creatinine Glucose 112 H POC Glucose Calcium 7.7 L Phosphorus Magnesium AST Alkaline Phosphatase C-Reactive Protein Total Protein Albumin Lipase Vitamin B12 TSH Urine WBC (Auto) Urine Chloride Urine Total Protein Vancomycin Trough Crossmatch 11/12/16 11/12/16 11/13/16 11:18 16:40 00:44 WBC RBC Hgb Hct MCV RDW Plt Count Lymph % (Auto) [place] % (Auto) [place] # Seg Neutrophils % Seg Neuts % (Manual) Lymphocytes % (Manual) Monocytes % (Manual) Basophils % (Manual) Nucleated RBC % Seg Neutrophils # Seg Neutrophils # Man Lymphocytes # (Manual) Monocytes # (Manual) Eosinophils # (Manual) Basophils # (Manual) PT INR APTT Heparin Anti-Xa Level POC ABG pH POC ABG pCO2 POC ABG pO2 Sodium Potassium Chloride Carbon Dioxide BUN Creatinine Glucose POC Glucose 135 H 139 H 169 H Calcium Phosphorus Magnesium AST Alkaline Phosphatase C-Reactive Protein Total Protein Albumin Lipase Vitamin B12 TSH Urine WBC (Auto) Urine Chloride Urine Total Protein Vancomycin Trough Crossmatch 11/13/16 11/13/16 11/13/16 05:28 05:28 06:02 WBC 12.7 H RBC 2.93 L Hgb 9.0 L Hct 27.6 L MCV RDW 16.1 H Plt Count Lymph % (Auto) [place] % (Auto) [place] # Seg Neutrophils % 78.6 H Seg Neuts % (Manual) Lymphocytes % (Manual) Monocytes % (Manual) Basophils % (Manual) Nucleated RBC % Seg Neutrophils # 10.0 H Seg Neutrophils # Man Lymphocytes # (Manual) Monocytes # (Manual) Eosinophils # (Manual) Basophils # (Manual) PT INR APTT Heparin Anti-Xa Level POC ABG pH POC ABG pCO2 POC ABG pO2 Sodium Potassium Chloride Carbon Dioxide 17 L BUN Creatinine Glucose 116 H POC Glucose 112 H Calcium 7.8 L Phosphorus Magnesium AST Alkaline Phosphatase C-Reactive Protein Total Protein Albumin Lipase Vitamin B12 TSH Urine WBC (Auto) Urine Chloride Urine Total Protein Vancomycin Trough Crossmatch 11/13/16 11/13/16 11/13/16 12:34 16:55 17:00 WBC RBC Hgb Hct MCV RDW Plt Count Lymph % (Auto) [place] % (Auto) [place] # Seg Neutrophils % Seg Neuts % (Manual) Lymphocytes % (Manual) Monocytes % (Manual) Basophils % (Manual) Nucleated RBC % Seg Neutrophils # Seg Neutrophils # Man Lymphocytes # (Manual) Monocytes # (Manual) Eosinophils # (Manual) Basophils # (Manual) PT INR APTT Heparin Anti-Xa Level POC ABG pH POC ABG pCO2 22.9 L POC ABG pO2 53 L Sodium Potassium Chloride Carbon Dioxide BUN Creatinine Glucose POC Glucose 109 H 122 H Calcium Phosphorus Magnesium AST Alkaline Phosphatase C-Reactive Protein Total Protein Albumin Lipase Vitamin B12 TSH Urine WBC (Auto) Urine Chloride Urine Total Protein Vancomycin Trough Crossmatch 11/13/16 11/14/16 11/14/16 23:33 04:42 04:42 WBC 11.7 H RBC 3.01 L Hgb 9.3 L Hct 28.9 L MCV RDW 16.5 H Plt Count Lymph % (Auto) [place] % (Auto) [place] # Seg Neutrophils % Seg Neuts % (Manual) 79.0 H Lymphocytes % (Manual) 10.0 L Monocytes % (Manual) Basophils % (Manual) Nucleated RBC % Seg Neutrophils # Seg Neutrophils # Man 9.2 H Lymphocytes # (Manual) Monocytes # (Manual) Eosinophils # (Manual) Basophils # (Manual) PT INR APTT Heparin Anti-Xa Level POC ABG pH POC ABG pCO2 POC ABG pO2 Sodium Potassium Chloride Carbon Dioxide 16 L BUN Creatinine Glucose 102 H POC Glucose 173 H Calcium 7.5 L Phosphorus Magnesium AST Alkaline Phosphatase C-Reactive Protein Total Protein Albumin Lipase Vitamin B12 TSH Urine WBC (Auto) Urine Chloride Urine Total Protein Vancomycin Trough Crossmatch 11/14/16 11/14/16 11/14/16 11:43 16:57 19:45 WBC RBC Hgb Hct MCV RDW Plt Count Lymph % (Auto) [place] % (Auto) [place] # Seg Neutrophils % Seg Neuts % (Manual) Lymphocytes % (Manual) Monocytes % (Manual) Basophils % (Manual) Nucleated RBC % Seg Neutrophils # Seg Neutrophils # Man Lymphocytes # (Manual) Monocytes # (Manual) Eosinophils # (Manual) Basophils # (Manual) PT INR APTT Heparin Anti-Xa Level 0.71 H POC ABG pH POC ABG pCO2 POC ABG pO2 Sodium Potassium Chloride Carbon Dioxide BUN Creatinine Glucose POC Glucose 130 H 209 H Calcium Phosphorus Magnesium AST Alkaline Phosphatase C-Reactive Protein Total Protein Albumin Lipase Vitamin B12 TSH Urine WBC (Auto) Urine Chloride Urine Total Protein Vancomycin Trough Crossmatch 11/14/16 11/15/16 11/16/16 23:43 23:47 06:11 WBC RBC Hgb Hct MCV RDW Plt Count Lymph % (Auto) [place] % (Auto) [place] # Seg Neutrophils % Seg Neuts % (Manual) Lymphocytes % (Manual) Monocytes % (Manual) Basophils % (Manual) Nucleated RBC % Seg Neutrophils # Seg Neutrophils # Man Lymphocytes # (Manual) Monocytes # (Manual) Eosinophils # (Manual) Basophils # (Manual) PT INR APTT Heparin Anti-Xa Level POC ABG pH POC ABG pCO2 POC ABG pO2 Sodium Potassium Chloride Carbon Dioxide BUN Creatinine Glucose POC Glucose 167 H 114 H 125 H Calcium Phosphorus Magnesium AST Alkaline Phosphatase C-Reactive Protein Total Protein Albumin Lipase Vitamin B12 TSH Urine WBC (Auto) Urine Chloride Urine Total Protein Vancomycin Trough Crossmatch 11/16/16 11/16/16 11/16/16 09:05 09:05 09:05 WBC RBC 2.53 L Hgb 8.0 L Hct 23.7 L MCV RDW 15.9 H Plt Count Lymph % (Auto) [place] % (Auto) [place] # Seg Neutrophils % Seg Neuts % (Manual) Lymphocytes % (Manual) Monocytes % (Manual) Basophils % (Manual) Nucleated RBC % Seg Neutrophils # Seg Neutrophils # Man Lymphocytes # (Manual) Monocytes # (Manual) Eosinophils # (Manual) Basophils # (Manual) PT INR APTT Heparin Anti-Xa Level POC ABG pH POC ABG pCO2 POC ABG pO2 Sodium Potassium 2.5 L* D Chloride Carbon Dioxide 19 L BUN 5 L Creatinine Glucose 103 H POC Glucose Calcium 6.6 L Phosphorus Magnesium 1.3 L AST Alkaline Phosphatase C-Reactive Protein Total Protein Albumin Lipase Vitamin B12 TSH Urine WBC (Auto) Urine Chloride Urine Total Protein Vancomycin Trough Crossmatch 11/16/16 11/16/16 11/16/16 12:15 13:00 14:45 WBC RBC Hgb Hct MCV RDW Plt Count Lymph % (Auto) [place] % (Auto) [place] # Seg Neutrophils % Seg Neuts % (Manual) Lymphocytes % (Manual) Monocytes % (Manual) Basophils % (Manual) Nucleated RBC % Seg Neutrophils # Seg Neutrophils # Man Lymphocytes # (Manual) Monocytes # (Manual) Eosinophils # (Manual) Basophils # (Manual) PT 19.1 H INR 1.61 H APTT Heparin Anti-Xa Level POC ABG pH 7.479 H POC ABG pCO2 23.6 L POC ABG pO2 Sodium Potassium Chloride Carbon Dioxide BUN Creatinine Glucose POC Glucose 129 H Calcium Phosphorus Magnesium AST Alkaline Phosphatase C-Reactive Protein Total Protein Albumin Lipase Vitamin B12 TSH Urine WBC (Auto) Urine Chloride Urine Total Protein Vancomycin Trough Crossmatch 11/16/16 11/17/16 11/17/16 17:43 00:30 04:32 WBC RBC Hgb Hct MCV RDW Plt Count Lymph % (Auto) [place] % (Auto) [place] # Seg Neutrophils % Seg Neuts % (Manual) Lymphocytes % (Manual) Monocytes % (Manual) Basophils % (Manual) Nucleated RBC % Seg Neutrophils # Seg Neutrophils # Man Lymphocytes # (Manual) Monocytes # (Manual) Eosinophils # (Manual) Basophils # (Manual) PT INR APTT Heparin Anti-Xa Level POC ABG pH POC ABG pCO2 POC ABG pO2 Sodium Potassium Chloride Carbon Dioxide 18 L BUN Creatinine Glucose 127 H POC Glucose 224 H 259 H Calcium 7.5 L Phosphorus Magnesium AST Alkaline Phosphatase C-Reactive Protein Total Protein Albumin Lipase Vitamin B12 TSH Urine WBC (Auto) Urine Chloride Urine Total Protein Vancomycin Trough Crossmatch 11/17/16 11/17/16 11/17/16 05:42 08:34 12:19 WBC RBC 2.85 L Hgb 8.9 L Hct 26.5 L MCV RDW 16.2 H Plt Count Lymph % (Auto) [place] % (Auto) [place] # Seg Neutrophils % Seg Neuts % (Manual) Lymphocytes % (Manual) Monocytes % (Manual) Basophils % (Manual) Nucleated RBC % Seg Neutrophils # Seg Neutrophils # Man Lymphocytes # (Manual) Monocytes # (Manual) Eosinophils # (Manual) Basophils # (Manual) PT INR APTT Heparin Anti-Xa Level POC ABG pH POC ABG pCO2 POC ABG pO2 Sodium Potassium Chloride Carbon Dioxide BUN Creatinine Glucose POC Glucose 118 H 264 H Calcium Phosphorus Magnesium AST Alkaline Phosphatase C-Reactive Protein Total Protein Albumin Lipase Vitamin B12 TSH Urine WBC (Auto) Urine Chloride Urine Total Protein Vancomycin Trough Crossmatch 11/17/16 11/17/16 11/18/16 16:52 23:44 04:53 WBC RBC Hgb Hct MCV RDW Plt Count Lymph % (Auto) [place] % (Auto) [place] # Seg Neutrophils % Seg Neuts % (Manual) Lymphocytes % (Manual) Monocytes % (Manual) Basophils % (Manual) Nucleated RBC % Seg Neutrophils # Seg Neutrophils # Man Lymphocytes # (Manual) Monocytes # (Manual) Eosinophils # (Manual) Basophils # (Manual) PT INR APTT Heparin Anti-Xa Level POC ABG pH POC ABG pCO2 POC ABG pO2 Sodium Potassium Chloride Carbon Dioxide BUN Creatinine Glucose POC Glucose 256 H 109 H 287 H Calcium Phosphorus Magnesium AST Alkaline Phosphatase C-Reactive Protein Total Protein Albumin Lipase Vitamin B12 TSH Urine WBC (Auto) Urine Chloride Urine Total Protein Vancomycin Trough Crossmatch 11/18/16 11/18/16 11/18/16 05:31 05:45 05:45 WBC RBC Hgb Hct MCV RDW Plt Count Lymph % (Auto) [place] % (Auto) [place] # Seg Neutrophils % Seg Neuts % (Manual) Lymphocytes % (Manual) Monocytes % (Manual) Basophils % (Manual) Nucleated RBC % Seg Neutrophils # Seg Neutrophils # Man Lymphocytes # (Manual) Monocytes # (Manual) Eosinophils # (Manual) Basophils # (Manual) PT 20.1 H INR 1.72 H APTT 131.1 H* Heparin Anti-Xa Level 0.18 L POC ABG pH 7.252 L POC ABG pCO2 32.0 L POC ABG pO2 Sodium Potassium Chloride 107.1 H Carbon Dioxide 17 L BUN Creatinine Glucose 284 H POC Glucose Calcium 7.2 L Phosphorus Magnesium AST Alkaline Phosphatase C-Reactive Protein Total Protein 5.5 L Albumin 2.1 L Lipase Vitamin B12 TSH Urine WBC (Auto) Urine Chloride Urine Total Protein Vancomycin Trough Crossmatch 11/18/16 11/18/16 11/18/16 05:45 09:17 12:06 WBC 13.3 H RBC 3.07 L Hgb 9.2 L Hct 29.5 L MCV RDW 16.9 H Plt Count Lymph % (Auto) 11.0 L [place] % (Auto) [place] # Seg Neutrophils % 82.9 H Seg Neuts % (Manual) Lymphocytes % (Manual) Monocytes % (Manual) Basophils % (Manual) Nucleated RBC % Seg Neutrophils # 11.0 H Seg Neutrophils # Man Lymphocytes # (Manual) Monocytes # (Manual) Eosinophils # (Manual) Basophils # (Manual) PT INR APTT Heparin Anti-Xa Level POC ABG pH POC ABG pCO2 24.3 L POC ABG pO2 79 L Sodium Potassium Chloride Carbon Dioxide BUN Creatinine Glucose POC Glucose 433 H Calcium Phosphorus Magnesium AST Alkaline Phosphatase C-Reactive Protein Total Protein Albumin Lipase Vitamin B12 TSH Urine WBC (Auto) Urine Chloride Urine Total Protein Vancomycin Trough Crossmatch 11/18/16 11/18/16 11/18/16 12:09 13:00 17:22 WBC 12.6 H RBC 2.79 L Hgb 8.6 L Hct 26.6 L MCV RDW 17.0 H Plt Count Lymph % (Auto) [place] % (Auto) [place] # Seg Neutrophils % Seg Neuts % (Manual) 90.0 H Lymphocytes % (Manual) 8.0 L Monocytes % (Manual) Basophils % (Manual) Nucleated RBC % Seg Neutrophils # Seg Neutrophils # Man 11.3 H Lymphocytes # (Manual) 1.0 L Monocytes # (Manual) Eosinophils # (Manual) Basophils # (Manual) PT INR APTT Heparin Anti-Xa Level POC ABG pH POC ABG pCO2 POC ABG pO2 Sodium Potassium Chloride Carbon Dioxide BUN Creatinine Glucose POC Glucose 429 H 297 H Calcium Phosphorus Magnesium AST Alkaline Phosphatase C-Reactive Protein Total Protein Albumin Lipase Vitamin B12 TSH Urine WBC (Auto) Urine Chloride Urine Total Protein Vancomycin Trough Crossmatch 11/18/16 11/19/16 11/19/16 23:27 04:30 04:30 WBC RBC 2.92 L Hgb 8.8 L Hct 27.0 L MCV RDW 16.6 H Plt Count Lymph % (Auto) [place] % (Auto) [place] # Seg Neutrophils % Seg Neuts % (Manual) Lymphocytes % (Manual) Monocytes % (Manual) Basophils % (Manual) Nucleated RBC % Seg Neutrophils # Seg Neutrophils # Man Lymphocytes # (Manual) Monocytes # (Manual) Eosinophils # (Manual) Basophils # (Manual) PT INR APTT Heparin Anti-Xa Level POC ABG pH POC ABG pCO2 POC ABG pO2 Sodium Potassium 3.0 L Chloride 107.9 H Carbon Dioxide 20 L BUN Creatinine Glucose 231 H POC Glucose 268 H Calcium 7.1 L Phosphorus Magnesium AST Alkaline Phosphatase C-Reactive Protein Total Protein 5.5 L Albumin 2.1 L Lipase Vitamin B12 TSH Urine WBC (Auto) Urine Chloride Urine Total Protein Vancomycin Trough Crossmatch 11/19/16 11/19/16 11/19/16 04:40 06:40 10:00 WBC RBC Hgb Hct MCV RDW Plt Count Lymph % (Auto) [place] % (Auto) [place] # Seg Neutrophils % Seg Neuts % (Manual) Lymphocytes % (Manual) Monocytes % (Manual) Basophils % (Manual) Nucleated RBC % Seg Neutrophils # Seg Neutrophils # Man Lymphocytes # (Manual) Monocytes # (Manual) Eosinophils # (Manual) Basophils # (Manual) PT INR APTT Heparin Anti-Xa Level POC ABG pH POC ABG pCO2 POC ABG pO2 Sodium Potassium Chloride Carbon Dioxide BUN Creatinine Glucose POC Glucose 267 H 244 H Calcium Phosphorus Magnesium 1.4 L AST Alkaline Phosphatase C-Reactive Protein Total Protein Albumin Lipase Vitamin B12 TSH Urine WBC (Auto) Urine Chloride Urine Total Protein Vancomycin Trough Crossmatch 11/19/16 11/19/16 11/19/16 12:08 18:10 23:40 WBC RBC Hgb Hct MCV RDW Plt Count Lymph % (Auto) [place] % (Auto) [place] # Seg Neutrophils % Seg Neuts % (Manual) Lymphocytes % (Manual) Monocytes % (Manual) Basophils % (Manual) Nucleated RBC % Seg Neutrophils # Seg Neutrophils # Man Lymphocytes # (Manual) Monocytes # (Manual) Eosinophils # (Manual) Basophils # (Manual) PT INR APTT Heparin Anti-Xa Level POC ABG pH POC ABG pCO2 POC ABG pO2 Sodium Potassium Chloride Carbon Dioxide BUN Creatinine Glucose POC Glucose 254 H 265 H 197 H Calcium Phosphorus Magnesium AST Alkaline Phosphatase C-Reactive Protein Total Protein Albumin Lipase Vitamin B12 TSH Urine WBC (Auto) Urine Chloride Urine Total Protein Vancomycin Trough Crossmatch 11/20/16 11/20/16 11/20/16 05:00 05:44 11:33 WBC RBC Hgb Hct MCV RDW Plt Count Lymph % (Auto) [place] % (Auto) [place] # Seg Neutrophils % Seg Neuts % (Manual) Lymphocytes % (Manual) Monocytes % (Manual) Basophils % (Manual) Nucleated RBC % Seg Neutrophils # Seg Neutrophils # Man Lymphocytes # (Manual) Monocytes # (Manual) Eosinophils # (Manual) Basophils # (Manual) PT INR APTT Heparin Anti-Xa Level POC ABG pH POC ABG pCO2 POC ABG pO2 Sodium Potassium 3.4 L Chloride 107.4 H Carbon Dioxide 20 L BUN Creatinine Glucose 140 H POC Glucose 163 H 108 H Calcium 7.2 L Phosphorus Magnesium AST Alkaline Phosphatase C-Reactive Protein Total Protein Albumin Lipase Vitamin B12 TSH Urine WBC (Auto) Urine Chloride Urine Total Protein Vancomycin Trough Crossmatch 11/20/16 11/20/16 11/20/16 13:03 16:45 23:26 WBC RBC Hgb Hct MCV RDW Plt Count Lymph % (Auto) [place] % (Auto) [place] # Seg Neutrophils % Seg Neuts % (Manual) Lymphocytes % (Manual) Monocytes % (Manual) Basophils % (Manual) Nucleated RBC % Seg Neutrophils # Seg Neutrophils # Man Lymphocytes # (Manual) Monocytes # (Manual) Eosinophils # (Manual) Basophils # (Manual) PT INR APTT Heparin Anti-Xa Level POC ABG pH POC ABG pCO2 POC ABG pO2 Sodium Potassium Chloride Carbon Dioxide BUN Creatinine Glucose POC Glucose 113 H 168 H Calcium Phosphorus Magnesium AST Alkaline Phosphatase C-Reactive Protein Total Protein Albumin Lipase Vitamin B12 TSH Urine WBC (Auto) Urine Chloride Urine Total Protein Vancomycin Trough 45.8 H Crossmatch 11/21/16 11/21/16 11/21/16 05:00 05:27 09:50 WBC RBC Hgb Hct MCV RDW Plt Count Lymph % (Auto) [place] % (Auto) [place] # Seg Neutrophils % Seg Neuts % (Manual) Lymphocytes % (Manual) Monocytes % (Manual) Basophils % (Manual) Nucleated RBC % Seg Neutrophils # Seg Neutrophils # Man Lymphocytes # (Manual) Monocytes # (Manual) Eosinophils # (Manual) Basophils # (Manual) PT INR APTT Heparin Anti-Xa Level POC ABG pH POC ABG pCO2 POC ABG pO2 Sodium 133 L D Potassium Chloride Carbon Dioxide 19 L BUN Creatinine Glucose 280 H POC Glucose 222 H Calcium 7.4 L Phosphorus Magnesium AST Alkaline Phosphatase C-Reactive Protein Total Protein Albumin Lipase Vitamin B12 TSH Urine WBC (Auto) Urine Chloride Urine Total Protein Vancomycin Trough 30.4 H Crossmatch 11/21/16 11/21/16 11/21/16 12:36 17:17 18:34 WBC RBC Hgb Hct MCV RDW Plt Count Lymph % (Auto) [place] % (Auto) [place] # Seg Neutrophils % Seg Neuts % (Manual) Lymphocytes % (Manual) Monocytes % (Manual) Basophils % (Manual) Nucleated RBC % Seg Neutrophils # Seg Neutrophils # Man Lymphocytes # (Manual) Monocytes # (Manual) Eosinophils # (Manual) Basophils # (Manual) PT INR APTT Heparin Anti-Xa Level POC ABG pH POC ABG pCO2 POC ABG pO2 Sodium Potassium Chloride Carbon Dioxide BUN Creatinine Glucose POC Glucose 306 H 339 H 318 H Calcium Phosphorus Magnesium AST Alkaline Phosphatase C-Reactive Protein Total Protein Albumin Lipase Vitamin B12 TSH Urine WBC (Auto) Urine Chloride Urine Total Protein Vancomycin Trough Crossmatch 11/21/16 11/22/16 11/22/16 23:16 07:19 11:49 WBC 11.1 H RBC 2.60 L Hgb 7.8 L Hct 24.4 L MCV RDW 16.3 H Plt Count Lymph % (Auto) [place] % (Auto) [place] # Seg Neutrophils % 76.8 H Seg Neuts % (Manual) Lymphocytes % (Manual) Monocytes % (Manual) Basophils % (Manual) Nucleated RBC % Seg Neutrophils # 8.5 H Seg Neutrophils # Man Lymphocytes # (Manual) Monocytes # (Manual) Eosinophils # (Manual) Basophils # (Manual) PT INR APTT Heparin Anti-Xa Level POC ABG pH POC ABG pCO2 POC ABG pO2 Sodium Potassium Chloride Carbon Dioxide BUN Creatinine Glucose POC Glucose 286 H 371 H Calcium Phosphorus Magnesium AST Alkaline Phosphatase C-Reactive Protein Total Protein Albumin Lipase Vitamin B12 TSH Urine WBC (Auto) Urine Chloride Urine Total Protein Vancomycin Trough Crossmatch 11/22/16 11/22/16 11/22/16 11:50 11:50 17:34 WBC RBC Hgb Hct MCV RDW Plt Count Lymph % (Auto) [place] % (Auto) [place] # Seg Neutrophils % Seg Neuts % (Manual) Lymphocytes % (Manual) Monocytes % (Manual) Basophils % (Manual) Nucleated RBC % Seg Neutrophils # Seg Neutrophils # Man Lymphocytes # (Manual) Monocytes # (Manual) Eosinophils # (Manual) Basophils # (Manual) PT INR APTT Heparin Anti-Xa Level POC ABG pH POC ABG pCO2 POC ABG pO2 Sodium 130 L Potassium Chloride Carbon Dioxide 19 L BUN 20 H Creatinine Glucose 266 H POC Glucose 262 H 284 H Calcium 7.2 L Phosphorus Magnesium AST Alkaline Phosphatase C-Reactive Protein Total Protein Albumin Lipase Vitamin B12 TSH Urine WBC (Auto) Urine Chloride Urine Total Protein Vancomycin Trough Crossmatch 11/22/16 11/22/16 11/22/16 17:43 20:04 23:38 WBC RBC Hgb Hct MCV RDW Plt Count Lymph % (Auto) [place] % (Auto) [place] # Seg Neutrophils % Seg Neuts % (Manual) Lymphocytes % (Manual) Monocytes % (Manual) Basophils % (Manual) Nucleated RBC % Seg Neutrophils # Seg Neutrophils # Man Lymphocytes # (Manual) Monocytes # (Manual) Eosinophils # (Manual) Basophils # (Manual) PT INR APTT Heparin Anti-Xa Level POC ABG pH 7.492 H POC ABG pCO2 23.2 L POC ABG pO2 60 L Sodium Potassium Chloride Carbon Dioxide BUN Creatinine Glucose POC Glucose 261 H 253 H Calcium Phosphorus Magnesium AST Alkaline Phosphatase C-Reactive Protein Total Protein Albumin Lipase Vitamin B12 TSH Urine WBC (Auto) Urine Chloride Urine Total Protein Vancomycin Trough Crossmatch 11/23/16 11/23/16 11/23/16 06:27 08:20 11:54 WBC RBC Hgb 8.2 L Hct 24.9 L MCV RDW Plt Count Lymph % (Auto) [place] % (Auto) [place] # Seg Neutrophils % Seg Neuts % (Manual) Lymphocytes % (Manual) Monocytes % (Manual) Basophils % (Manual) Nucleated RBC % Seg Neutrophils # Seg Neutrophils # Man Lymphocytes # (Manual) Monocytes # (Manual) Eosinophils # (Manual) Basophils # (Manual) PT INR APTT Heparin Anti-Xa Level POC ABG pH POC ABG pCO2 POC ABG pO2 Sodium Potassium Chloride Carbon Dioxide BUN Creatinine Glucose POC Glucose 333 H 286 H Calcium Phosphorus Magnesium AST Alkaline Phosphatase C-Reactive Protein Total Protein Albumin Lipase Vitamin B12 TSH Urine WBC (Auto) Urine Chloride Urine Total Protein Vancomycin Trough Crossmatch 11/23/16 11/23/16 11/24/16 17:53 23:51 00:12 WBC RBC Hgb Hct MCV RDW Plt Count Lymph % (Auto) [place] % (Auto) [place] # Seg Neutrophils % Seg Neuts % (Manual) Lymphocytes % (Manual) Monocytes % (Manual) Basophils % (Manual) Nucleated RBC % Seg Neutrophils # Seg Neutrophils # Man Lymphocytes # (Manual) Monocytes # (Manual) Eosinophils # (Manual) Basophils # (Manual) PT INR APTT Heparin Anti-Xa Level POC ABG pH POC ABG pCO2 POC ABG pO2 Sodium Potassium Chloride Carbon Dioxide BUN Creatinine Glucose POC Glucose 195 H 214 H 223 H Calcium Phosphorus Magnesium AST Alkaline Phosphatase C-Reactive Protein Total Protein Albumin Lipase Vitamin B12 TSH Urine WBC (Auto) Urine Chloride Urine Total Protein Vancomycin Trough Crossmatch 11/24/16 11/24/16 11/24/16 04:50 04:50 06:08 WBC RBC 2.74 L Hgb 8.4 L Hct 26.1 L MCV RDW 16.0 H Plt Count Lymph % (Auto) [place] % (Auto) [place] # Seg Neutrophils % Seg Neuts % (Manual) Lymphocytes % (Manual) Monocytes % (Manual) Basophils % (Manual) Nucleated RBC % Seg Neutrophils # Seg Neutrophils # Man Lymphocytes # (Manual) Monocytes # (Manual) Eosinophils # (Manual) Basophils # (Manual) PT INR APTT Heparin Anti-Xa Level POC ABG pH POC ABG pCO2 POC ABG pO2 Sodium 133 L Potassium Chloride Carbon Dioxide 19 L BUN 23 H Creatinine Glucose 200 H POC Glucose 187 H Calcium 7.2 L Phosphorus Magnesium AST Alkaline Phosphatase C-Reactive Protein Total Protein Albumin Lipase Vitamin B12 TSH Urine WBC (Auto) Urine Chloride Urine Total Protein Vancomycin Trough Crossmatch Allied health notes reviewed: RT
[2016-11-24] MEDS: PLAVIX PO SCH (12:51)
--- NOTE | 2016-11-24 14:16 | Progress Note ---
Assessment and Plan Assessment and plan: 66-year-old woman who presented with lethargy and altered mental status she deteriorated and was intubated and in emergency room, she was managed for DKA and she also developed sepsis due to UTI and right lower extremity ischemia * S/P cardiopulomary arrest. * A/C respiratory failure with hypercapenia * Seizure-Per family prior hx * DM * Hyponatremia * acute ischemia of right lower ext due to SFA thrombosis- s/p right BKA * LUCY likely vasomotor nephropathy-resolved * Sepsis- Multifactorial * Anemia of chronic disease * Hematuria * Metabolic acidosis * Severe Hypokalemia-RESOLVED Plan: * s/p EEG - findings consistent with anoxic encephalopathy and cortical irritability * Neurology notes intact brain stem * Will try psv today. * Monitor Na level * Family updated about the very real possibility of not having any meaningful neurological recovery. all questions answered. Family meeting with daughter, and grandchild with greatgrand child in attendance. Case mangement and social welfare research worker and bedside nurse were also present. * Poor prognosis. * MRI brain with no gross abnormality * adjust insulin therapy * Highly concerning for anoxic brain injury. * Neurologic input noted. EEG abnormal. * Heparin had to be held due to the risk associated considering recent CPR with chest compressions. * vascular following up on right BKA remains poor prognosis and likely will need a conversion to AKA. Holding off heparin which is necessary at this time also worsens that prescription. * Continue subcutaneous insulin and electrolyte replacement * Patient unfortunately has poor prognosis has been unable to be weaned from the vent prior to the cardiopulmonary arrest was doing well on spontaneous breathing and event. * Antibiotics per ID * Continue Cardizem and beta juan antonio * Monitor electrolytes and hemoglobin. * continue dilantin * DVT and GI prophylaxis 35 mins critical care time. History Interval history: Patient seen and examined, remains on vent support, still not following commands. no adverse event reported by nursing staff. Hospitalist Physical - Physical exam Narrative exam: VITAL SIGNS: Reviewed. GENERAL: vent support Vital signs as documented. HEAD: No signs of head trauma. EYES: Pupils are equal. EARS: Unable to assess MOUTH: missing dentition NECK: Trach CHEST: Chest with diminshed CARDIAC: Regular rate and rhythm. S1 and S2, without murmurs, gallops, or rubs. VASCULAR: trace Edema. Peripheral pulses left lower ext ABDOMEN: Soft, No rebound or guarding, and no masses palpated. Bowel Sounds normal. MUSCULOSKELETAL: BKA right lower extremity dressing in place. Some necrosis to the lateral aspect. NEUROLOGIC EXAM: not following commands, opens and closes eyes none purposeful PSYCHIATRIC: unable to assess SKIN: dressing to right lower ext stump, superficial necrosis - Constitutional Vitals: Temp Pulse Resp BP Pulse Ox 98.9 F 82 28 H 135/69 95 11/24/16 12:00 11/24/16 12:52 11/24/16 07:00 11/24/16 12:52 11/24/16 07:50 General appearance: Present: no acute distress Results - Labs CBC & Chem 7: 11/24/16 04:50 11/24/16 04:50 Labs: Laboratory Last Values WBC 9.9 K/mm3 (4.5-11.0) 11/24/16 04:50 RBC 2.74 M/mm3 (3.65-5.03) L 11/24/16 04:50 Hgb 8.4 gm/dl (10.1-14.3) L 11/24/16 04:50 Hct 26.1 % (30.3-42.9) L 11/24/16 04:50 MCV 95 fl (79-97) 11/24/16 04:50 MCH 31 pg (28-32) 11/24/16 04:50 MCHC 32 % (30-34) 11/24/16 04:50 RDW 16.0 % (13.2-15.2) H 11/24/16 04:50 Plt Count 289 K/mm3 (140-440) 11/24/16 04:50 Lymph % (Auto) 14.8 % (13.4-35.0) 11/22/16 11:49 [place] % (Auto) 6.7 % (0.0-7.3) 11/22/16 11:49 Eos % (Auto) 1.1 % (0.0-4.3) 11/22/16 11:49 Baso % (Auto) 0.6 % (0.0-1.8) 11/22/16 11:49 Lymph # 1.6 K/mm3 (1.2-5.4) 11/22/16 11:49 [place] # 0.7 K/mm3 (0.0-0.8) 11/22/16 11:49 Eos # 0.1 K/mm3 (0.0-0.4) 11/22/16 11:49 Baso # 0.1 K/mm3 (0.0-0.1) 11/22/16 11:49 Add Manual Diff Complete 11/18/16 13:00 Total Counted 100 11/18/16 13:00 Seg Neutrophils % 76.8 % (40.0-70.0) H 11/22/16 11:49 Seg Neuts % (Manual) 90.0 % (40.0-70.0) H 11/18/16 13:00 Band Neutrophils % 0 % 11/18/16 13:00 Lymphocytes % (Manual) 8.0 % (13.4-35.0) L 11/18/16 13:00 Reactive Lymphs % (Man) 0 % 11/18/16 13:00 Monocytes % (Manual) 2.0 % (0.0-7.3) 11/18/16 13:00 Eosinophils % (Manual) 0 % (0.0-4.3) 11/18/16 13:00 Basophils % (Manual) 0 % (0.0-1.8) 11/18/16 13:00 Metamyelocytes % 0 % 11/18/16 13:00 Myelocytes % 0 % 11/18/16 13:00 Promyelocytes % 0 % 11/18/16 13:00 Blast Cells % 0 % 11/18/16 13:00 Nucleated RBC % Not Reportable 11/18/16 13:00 Seg Neutrophils # 8.5 K/mm3 (1.8-7.7) H 11/22/16 11:49 Seg Neutrophils # Man 11.3 K/mm3 (1.8-7.7) H 11/18/16 13:00 Band Neutrophils # 0.0 K/mm3 11/18/16 13:00 Lymphocytes # (Manual) 1.0 K/mm3 (1.2-5.4) L 11/18/16 13:00 Abs React Lymphs (Man) 0.0 K/mm3 11/18/16 13:00 Monocytes # (Manual) 0.3 K/mm3 (0.0-0.8) 11/18/16 13:00 Eosinophils # (Manual) 0.0 K/mm3 (0.0-0.4) 11/18/16 13:00 Basophils # (Manual) 0.0 K/mm3 (0.0-0.1) 11/18/16 13:00 Metamyelocytes # 0.0 K/mm3 11/18/16 13:00 Myelocytes # 0.0 K/mm3 11/18/16 13:00 Promyelocytes # 0.0 K/mm3 11/18/16 13:00 Blast Cells # 0.0 K/mm3 11/18/16 13:00 Pathologist Review 10/29/16 09:30 WBC Morphology Not Reportable 11/18/16 13:00 Hypersegmented Neuts Not Reportable 11/18/16 13:00 Hyposegmented Neuts Not Reportable 11/18/16 13:00 Hypogranular Neuts Not Reportable 11/18/16 13:00 Hypersegmented Polys TNR 10/17/16 07:08 Smudge Cells Not Reportable 11/18/16 13:00 Toxic Granulation Not Reportable 11/18/16 13:00 Toxic Vacuolation Not Reportable 11/18/16 13:00 Dohle Bodies Not Reportable 11/18/16 13:00 Pelger-Huet Anomaly Not Reportable 11/18/16 13:00 [place]ka Rods Not Reportable 11/18/16 13:00 Platelet Estimate Consistent w auto 11/18/16 13:00 Clumped Platelets Not Reportable 11/18/16 13:00 Plt Clumps, EDTA Not Reportable 11/18/16 13:00 Large Platelets Not Reportable 11/18/16 13:00 Giant Platelets Not Reportable 11/18/16 13:00 Platelet Satelliting Not Reportable 11/18/16 13:00 Plt Morphology Comment Not Reportable 11/18/16 13:00 RBC Morphology Not Reportable 11/18/16 13:00 Dimorphic RBCs Not Reportable 11/18/16 13:00 Polychromasia Not Reportable 11/18/16 13:00 Hypochromasia Not Reportable 11/18/16 13:00 Poikilocytosis Not Reportable 11/18/16 13:00 Basophilic Stippling TNR 10/17/16 07:08 Anisocytosis 1+ 11/18/16 13:00 Microcytosis Not Reportable 11/18/16 13:00 Macrocytosis Not Reportable 11/18/16 13:00 Spherocytes Not Reportable 11/18/16 13:00 Pappenheimer Bodies Not Reportable 11/18/16 13:00 Sickle Cells Not Reportable 11/18/16 13:00 Target Cells Not Reportable 11/18/16 13:00 Tear Drop Cells Not Reportable 11/18/16 13:00 Ovalocytes Not Reportable 11/18/16 13:00 Stomatocytes Few 11/03/16 00:05 Helmet Cells Not Reportable 11/18/16 13:00 Higgins-Emlyn Bodies Not Reportable 11/18/16 13:00 [place] Rings Not Reportable 11/18/16 13:00 Jeannette Cells Not Reportable 11/18/16 13:00 Bite Cells Not Reportable 11/18/16 13:00 Crenated Cell Not Reportable 11/18/16 13:00 Elliptocytes Not Reportable 11/18/16 13:00 Acanthocytes (Spur) Not Reportable 11/18/16 13:00 Rouleaux Not Reportable 11/18/16 13:00 Hemoglobin C Crystals Not Reportable 11/18/16 13:00 Schistocytes Not Reportable 11/18/16 13:00 Malaria parasites Not Reportable 11/18/16 13:00 David Bodies Not Reportable 11/18/16 13:00 Hem Pathologist Commnt No 11/18/16 13:00 PT 20.1 Sec. (12.2-14.9) H 11/18/16 05:45 INR 1.72 (0.87-1.13) H 11/18/16 05:45 APTT 131.1 Sec. (24.2-36.6) H* 11/18/16 05:45 Heparin Anti-Xa Level 0.51 U.I./ml (0.3-0.7) 11/18/16 11:16 POC ABG pH 7.492 (7.35-7.45) H 11/22/16 20:04 POC ABG pCO2 23.2 (35-45) L 11/22/16 20:04 POC ABG pO2 60 (80-105) L 11/22/16 20:04 POC ABG HCO3 17.8 11/22/16 20:04 POC ABG Total CO2 18 11/22/16 20:04 POC ABG O2 Sat 93 11/22/16 20:04 POC ABG Base Excess -6 11/22/16 20:04 VBG pH 7.020 (7.320-7.420) L* 10/13/16 04:22 FiO2 35 % 11/22/16 20:04 Sodium 133 mmol/L (137-145) L 11/24/16 04:50 Potassium 3.8 mmol/L (3.6-5.0) 11/24/16 04:50 Chloride 99.3 mmol/L (98-107) 11/24/16 04:50 Carbon Dioxide 19 mmol/L (22-30) L 11/24/16 04:50 Anion Gap 19 mmol/L 11/24/16 04:50 BUN 23 mg/dL (7-17) H 11/24/16 04:50 Creatinine 0.9 mg/dL (0.7-1.2) 11/24/16 04:50 Estimated GFR > 60 ml/min 11/24/16 04:50 BUN/Creatinine Ratio 25.55 % 11/24/16 04:50 Glucose 200 mg/dL (65-100) H 11/24/16 04:50 POC Glucose 250 (70-105) H 11/24/16 12:02 Osmolality 332 Mosm/kg 10/14/16 07:03 Lactic Acid 1.8 mmol/L (0.7-2.0) 10/14/16 07:03 Calcium 7.2 mg/dL (8.4-10.2) L 11/24/16 04:50 Phosphorus 2.7 mg/dL (2.5-4.5) D 10/21/16 Unknown Magnesium 2.0 mg/dL (1.7-2.3) 11/20/16 05:00 Total Bilirubin 0.2 mg/dL (0.1-1.2) 11/19/16 04:30 AST 9 units/L (5-40) 11/19/16 04:30 ALT 7 units/L (7-56) 11/19/16 04:30 Alkaline Phosphatase 82 units/L (35-129) 11/19/16 04:30 Ammonia 35.0 umol/L (25-60) 10/13/16 05:40 Total Creatine Kinase 107 units/L (30-135) 10/13/16 04:22 CK-MB (CK-2) 3.1 ng/mL (0.0-4.0) 10/13/16 04:22 CK-MB (CK-2) Rel Index 2.8 (0-4) 10/13/16 04:22 Troponin T < 0.010 ng/mL (0.00-0.029) 10/14/16 18:55 C-Reactive Protein 10.50 mg/dL (0.00-1.30) H 10/13/16 16:14 Total Protein 5.5 g/dL (6.3-8.2) L 11/19/16 04:30 Albumin 2.1 g/dL (3.9-5) L 11/19/16 04:30 Albumin/Globulin Ratio 0.6 % 11/19/16 04:30 Amylase 30 units/L (27-131) 11/10/16 04:30 Lipase 41 units/L (13-60) 11/10/16 04:30 Vitamin B12 976.8 pg/mL (211-911) H 10/22/16 10:25 TSH 0.162 mlU/mL (0.270-4.200) L 10/22/16 14:50 Free T4 0.77 ng/dL (0.76-1.46) 10/22/16 14:50 Urine Color Yellow (Yellow) 11/14/16 19:39 Urine Turbidity Cloudy (Clear) 11/14/16 19:39 Urine pH 6.0 (5.0-7.0) 11/14/16 19:39 Ur Specific [place] 1.010 (1.003-1.030) 11/14/16 19:39 Urine Protein 30 mg/dl mg/dL (Negative) 11/14/16 19:39 Urine Glucose (UA) 50 mg/dL (Negative) 11/14/16 19:39 Urine Ketones 20 mg/dL (Negative) 11/14/16 19:39 Urine Blood Lg (Negative) 11/14/16 19:39 Urine Nitrite Neg (Negative) 11/14/16 19:39 Urine Bilirubin Neg (Negative) 11/14/16 19:39 Urine Urobilinogen < 2.0 mg/dL (<2.0) 11/14/16 19:39 Ur Leukocyte Esterase Sm (Negative) 11/14/16 19:39 Urine WBC (Auto) 3.0 /HPF (0.0-6.0) 11/14/16 19:39 Urine RBC (Auto) > 182.0 /HPF (0.0-6.0) 11/14/16 19:39 U Epithel Cells (Auto) 1.0 /HPF (0-13.0) 10/15/16 11:05 Urine Bacteria (Auto) 1+ /HPF (Negative) 11/14/16 19:39 Urine Mucus Few /HPF 11/14/16 19:39 Urine Yeast (Budding) 2+ /HPF 10/15/16 11:05 Urine Osmolality 487 Mosm/kg 10/13/16 Unknown Urine Creatinine < 4.2 mg/dL (0.1-20.0) 10/13/16 Unknown Protein/Creatinin Ratio 0.00 10/13/16 Unknown Urine Sodium 10 mEq/L 10/13/16 Unknown Urine Potassium 1.00 mEq/L 10/13/16 Unknown Urine Chloride 10.0 mEq/L (110-250) L 10/13/16 Unknown Urine Total Protein < 4 mg/dL (5-11.8) L 10/13/16 Unknown Vancomycin Trough 30.4 ug/mL (5.0-20.0) H 11/21/16 09:50 Random Vancomycin 20.8 ug/mL (0-40.0) 11/23/16 04:00 Ketones 107.3 mg/dL (0.2-2.8) H 10/13/16 04:22 Blood Type A POSITIVE 11/03/16 18:01 Antibody Screen Negative 11/03/16 18:01 Crossmatch See Detail 11/03/16 18:01
[2016-11-24] MEDS: DURAGESIC TD SCH (15:00)
--- NOTE | 2016-11-24 22:23 | Progress Note ---
Subjective Date of service: 11/24/16 Principal diagnosis: respiratory failure on mechanical ventilatory support, DKA Interval history: Patient coded this am. Resuscitated with acls protocol. Vital signs - afebrile CHEST - GOOD AIR ENTRY CVS - S1S2 ABD - BS_ right stump - cellulitis LABS See lab section. ASSESSMENT 1. Sepsis - resolving 2. dka 3. resp failure 4. htn 5. clostridium difficile colitis RECOMMENDATION 1. cbc/bmp in am Objective - Constitutional Vitals: Vital Signs Temp Pulse Resp BP Pulse Ox 99.0 F 83 37 H 158/87 100 11/24/16 20:00 11/24/16 20:16 11/24/16 20:00 11/24/16 20:16 11/24/16 20:16 Temperature -Last 24 Hours Temperature 99.0 F Temperature 98.7 F Temperature 98.9 F Temperature 98.8 F Temperature 97.5 F Temperature 97.5 F Temperature 97.5 F Temperature 97.5 F - Labs CBC & Chem 7: 11/24/16 04:50 11/24/16 04:50 Labs: Abnormal lab results 11/23/16 11/23/16 11/23/16 Range/Units 11:54 17:53 23:51 RBC (3.65-5.03) M/mm3 Hgb (10.1-14.3) gm/dl Hct (30.3-42.9) % RDW (13.2-15.2) % Sodium (137-145) mmol/L Carbon Dioxide (22-30) mmol/L BUN (7-17) mg/dL Glucose (65-100) mg/dL POC Glucose 286 H 195 H 214 H (70-105) Calcium (8.4-10.2) mg/dL 11/24/16 11/24/16 11/24/16 Range/Units 00:12 04:50 04:50 RBC 2.74 L (3.65-5.03) M/mm3 Hgb 8.4 L (10.1-14.3) gm/dl Hct 26.1 L (30.3-42.9) % RDW 16.0 H (13.2-15.2) % Sodium 133 L (137-145) mmol/L Carbon Dioxide 19 L (22-30) mmol/L BUN 23 H (7-17) mg/dL Glucose 200 H (65-100) mg/dL POC Glucose 223 H (70-105) Calcium 7.2 L (8.4-10.2) mg/dL 11/24/16 11/24/16 11/24/16 Range/Units 06:08 12:02 17:43 RBC (3.65-5.03) M/mm3 Hgb (10.1-14.3) gm/dl Hct (30.3-42.9) % RDW (13.2-15.2) % Sodium (137-145) mmol/L Carbon Dioxide (22-30) mmol/L BUN (7-17) mg/dL Glucose (65-100) mg/dL POC Glucose 187 H 250 H 226 H (70-105) Calcium (8.4-10.2) mg/dL
[2016-11-24] MEDS: TYLENOL PO PRN (23:23)
[2016-11-25] MEDS: HEPARIN SUB-Q SCH ×3 (05:07→22:21)
[2016-11-25] MEDS: LOPRESSOR PO SCH ×4 (05:07→23:20)
[2016-11-25] MEDS: DILANTIN IV SCH ×3 (05:07→22:00)
[2016-11-25] MEDS: REGLAN IV SCH ×4 (05:07→23:17)
[2016-11-25] MEDS: FLAGYL 500 MG/100 ML 500 MG/100 ML BAG IV SCH ×3 (08:00→23:39)
[2016-11-25] MEDS: PLAVIX PO SCH (09:55)
[2016-11-25] MEDS: LEVEMIR SUB-Q SCH (09:55)
[2016-11-25] MEDS: PEPCID PO SCH ×2 (09:55→23:21)
--- NOTE | 2016-11-25 16:01 | Progress Note ---
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 weaning likelyhood even poorer - continue PSV trials as tolerated - continue to rest on AC qhs during wean - resume diuresis (2) Altered mental status Current Visit: Yes Status: Acute Qualifiers: Altered mental status type: A Coma depth: C Coma timing: C Plan to address problem: - likely anoxic encephalopathy at this point - no active grand-mal seizures - seen by neurology and will follow their recommendations - reviewed EEG and MRI reports and appears overall prognosis guarded at best (3) LUCY (acute kidney injury) Current Visit: Yes Status: Acute Plan to address problem: - resolved - following I's & O's - tube feeds restarted and tolerating well so far - julianna resume diuresis (4) DKA (diabetic ketoacidoses) Current Visit: Yes Status: Acute Qualifiers: Diabetes mellitus type: D Diabetes mellitus complication detail: D Plan to address problem: - resolved - continue SSI - continue levemir but increase dose (5) Sepsis Current Visit: No Status: Acute Qualifiers: Sepsis type: S Plan to address problem: - complete anti-infectives per ID recs - follow clinically - trend lactate and CRP prn (6) Emesis Current Visit: Yes Status: Acute Qualifiers: Vomiting type: V Vomiting Intractability: V Nausea presence: N Plan to address problem: - continue increased reglan dose - reduced fentanyl dose and using other sedatives/anxiolytics (re: opiates and G.I. motility) - continue aspiration precautions - GI input appreciated - improved (7) Discharge planning issues Current Visit: No Status: Acute Plan to address problem: - cardiac arrest and potential anoxic encephalopathy makes prognosis more guarded now - LTAC evaluation ongoing ...for now remains critically ill on life sustaining treatments including MVS and at high risk for further deterioration including ...35' CCT Subjective Date of service: 11/25/16 Principal diagnosis: respiratory failure on mechanical ventilatory support, DKA Interval history: Seen and examined at bedside; 24 hour events reviewed; nursing and respiratory care staff consulted; no adverse overnight events reported to me; remains on MVS ; weaning tenuously; AMS is persistent; in room and care plan discussed at length Objective Vital Signs - 12hr 11/25/16 11/25/16 11/25/16 04:30 05:00 05:07 Temperature Pulse Rate 79 77 78 Pulse Rate [ Apical] Pulse Rate [ From Monitor] Pulse Rate [ Right Radial] Respiratory 31 H 23 Rate Blood Pressure 140/70 144/74 144/74 O2 Sat by Pulse 100 100 Oximetry O2 Sat by Pulse Oximetry [ Assessment] 11/25/16 11/25/16 11/25/16 05:30 06:00 06:30 Temperature Pulse Rate 75 72 74 Pulse Rate [ Apical] Pulse Rate [ From Monitor] Pulse Rate [ Right Radial] Respiratory 32 H 29 H 28 H Rate Blood Pressure 144/74 134/73 134/73 O2 Sat by Pulse 100 100 100 Oximetry O2 Sat by Pulse Oximetry [ Assessment] 11/25/16 11/25/16 11/25/16 07:00 07:30 07:40 Temperature 98.2 F Pulse Rate 77 78 Pulse Rate [ Apical] Pulse Rate [ From Monitor] Pulse Rate [ Right Radial] Respiratory 31 H 31 H Rate Blood Pressure 139/75 134/73 O2 Sat by Pulse 100 100 Oximetry O2 Sat by Pulse Oximetry [ Assessment] 11/25/16 11/25/16 11/25/16 08:00 08:20 08:25 Temperature Pulse Rate 79 79 Pulse Rate [ 80 Apical] Pulse Rate [ 80 From Monitor] Pulse Rate [ 80 Right Radial] Respiratory 33 H Rate Blood Pressure 137/74 137/74 O2 Sat by Pulse 100 100 Oximetry O2 Sat by Pulse 100 Oximetry [ Assessment] 11/25/16 11/25/16 11/25/16 08:30 09:00 09:30 Temperature Pulse Rate 80 79 80 Pulse Rate [ Apical] Pulse Rate [ From Monitor] Pulse Rate [ Right Radial] Respiratory 31 H 31 H 32 H Rate Blood Pressure 137/74 138/72 137/74 O2 Sat by Pulse 100 100 100 Oximetry O2 Sat by Pulse Oximetry [ Assessment] 11/25/16 11/25/16 11/25/16 10:00 10:30 11:00 Temperature Pulse Rate 80 81 82 Pulse Rate [ Apical] Pulse Rate [ From Monitor] Pulse Rate [ Right Radial] Respiratory 28 H 31 H 29 H Rate Blood Pressure 138/72 146/80 149/73 O2 Sat by Pulse 100 100 100 Oximetry O2 Sat by Pulse Oximetry [ Assessment] 11/25/16 11/25/16 11/25/16 11:30 12:00 12:30 Temperature 98.3 F Pulse Rate 83 83 82 Pulse Rate [ Apical] Pulse Rate [ From Monitor] Pulse Rate [ Right Radial] Respiratory 36 H 33 H 36 H Rate Blood Pressure 149/73 150/72 150/72 O2 Sat by Pulse 100 100 100 Oximetry O2 Sat by Pulse Oximetry [ Assessment] 11/25/16 11/25/16 11/25/16 13:00 13:07 13:30 Temperature Pulse Rate 82 82 81 Pulse Rate [ Apical] Pulse Rate [ From Monitor] Pulse Rate [ Right Radial] Respiratory 25 H 26 H Rate Blood Pressure 151/70 151/70 151/70 O2 Sat by Pulse 99 100 Oximetry O2 Sat by Pulse Oximetry [ Assessment] 11/25/16 11/25/16 11/25/16 14:00 14:30 15:00 Temperature Pulse Rate 74 76 78 Pulse Rate [ Apical] Pulse Rate [ From Monitor] Pulse Rate [ Right Radial] Respiratory 27 H 31 H 32 H Rate Blood Pressure 129/63 129/63 139/67 O2 Sat by Pulse 100 100 100 Oximetry O2 Sat by Pulse Oximetry [ Assessment] Constitutional: appears uncomfortable, other (Patient S/P CPR. Patient likely has anoxic encephalopathy) Eyes: non-icteric ENT: oropharynx moist Neck: supple, no lymphadenopathy Effort: mildly labored Ascultation: Bilateral: diminished breath sounds, rales Cardiovascular: regular rate and rhythm, other (tachycardia) Gastrointestinal: hypoactive bowel sounds, soft, non-distended Integumentary: normal Extremities: no cyanosis, no edema, no ischemia or petechiae, other (s/p right BKA) Neurologic: unable to assess, other (encephalopathic) Psychiatric: other (encephalopathic) CBC and BMP: 11/24/16 04:50 11/24/16 04:50 ABG, PT/INR, D-dimer: ABG POC ABG pH 7.492 (7.35-7.45) H 11/22/16 20:04 POC ABG pCO2 23.2 (35-45) L 11/22/16 20:04 POC ABG pO2 60 (80-105) L 11/22/16 20:04 POC ABG HCO3 17.8 11/22/16 20:04 POC ABG Total CO2 18 11/22/16 20:04 POC ABG O2 Sat 93 11/22/16 20:04 PT/INR, D-dimer PT 20.1 Sec. (12.2-14.9) H 11/18/16 05:45 INR 1.72 (0.87-1.13) H 11/18/16 05:45 Abnormal lab findings: Abnormal Labs 10/13/16 10/13/16 10/13/16 06:38 06:38 07:23 WBC RBC Hgb Hct MCV RDW Plt Count Lymph % (Auto) Phillips % (Auto) Phillips # Seg Neutrophils % Seg Neuts % (Manual) Lymphocytes % (Manual) Monocytes % (Manual) Basophils % (Manual) Nucleated RBC % Seg Neutrophils # Seg Neutrophils # Man Lymphocytes # (Manual) Monocytes # (Manual) Eosinophils # (Manual) Basophils # (Manual) PT INR APTT Heparin Anti-Xa Level POC ABG pH POC ABG pCO2 POC ABG pO2 Sodium Potassium 6.2 H* Chloride Carbon Dioxide 8 L* BUN 85 H Creatinine 2.8 H Glucose 602 H* POC Glucose 495 H Calcium 7.9 L Phosphorus 6.9 H D Magnesium 3.0 H AST Alkaline Phosphatase C-Reactive Protein Total Protein Albumin Lipase Vitamin B12 TSH Urine WBC (Auto) Urine Chloride Urine Total Protein Vancomycin Trough Crossmatch 10/13/16 10/13/16 10/13/16 08:49 08:55 10:12 WBC RBC Hgb Hct MCV RDW Plt Count Lymph % (Auto) Phillips % (Auto) Phillips # Seg Neutrophils % Seg Neuts % (Manual) Lymphocytes % (Manual) Monocytes % (Manual) Basophils % (Manual) Nucleated RBC % Seg Neutrophils # Seg Neutrophils # Man Lymphocytes # (Manual) Monocytes # (Manual) Eosinophils # (Manual) Basophils # (Manual) PT INR APTT Heparin Anti-Xa Level POC ABG pH POC ABG pCO2 POC ABG pO2 Sodium Potassium 5.6 H Chloride Carbon Dioxide 11 L BUN 77 H Creatinine 2.7 H Glucose 457 H POC Glucose > 500 H 424 H Calcium 8.0 L Phosphorus Magnesium AST Alkaline Phosphatase C-Reactive Protein Total Protein Albumin Lipase Vitamin B12 TSH Urine WBC (Auto) Urine Chloride Urine Total Protein Vancomycin Trough Crossmatch 10/13/16 10/13/16 10/13/16 10:44 11:22 12:20 WBC RBC Hgb Hct MCV RDW Plt Count Lymph % (Auto) Phillips % (Auto) Phillips # Seg Neutrophils % Seg Neuts % (Manual) Lymphocytes % (Manual) Monocytes % (Manual) Basophils % (Manual) Nucleated RBC % Seg Neutrophils # Seg Neutrophils # Man Lymphocytes # (Manual) Monocytes # (Manual) Eosinophils # (Manual) Basophils # (Manual) PT INR APTT Heparin Anti-Xa Level POC ABG pH POC ABG pCO2 POC ABG pO2 Sodium Potassium 5.4 H Chloride Carbon Dioxide 14 L BUN 72 H Creatinine 2.6 H Glucose 383 H POC Glucose 391 H 313 H Calcium 8.2 L Phosphorus Magnesium AST Alkaline Phosphatase C-Reactive Protein Total Protein Albumin Lipase Vitamin B12 TSH Urine WBC (Auto) Urine Chloride Urine Total Protein Vancomycin Trough Crossmatch 10/13/16 10/13/16 10/13/16 13:32 14:44 15:57 WBC RBC Hgb Hct MCV RDW Plt Count Lymph % (Auto) Phillips % (Auto) Phillips # Seg Neutrophils % Seg Neuts % (Manual) Lymphocytes % (Manual) Monocytes % (Manual) Basophils % (Manual) Nucleated RBC % Seg Neutrophils # Seg Neutrophils # Man Lymphocytes # (Manual) Monocytes # (Manual) Eosinophils # (Manual) Basophils # (Manual) PT INR APTT Heparin Anti-Xa Level POC ABG pH POC ABG pCO2 POC ABG pO2 Sodium Potassium Chloride Carbon Dioxide BUN Creatinine Glucose POC Glucose 296 H 210 H 190 H Calcium Phosphorus Magnesium AST Alkaline Phosphatase C-Reactive Protein Total Protein Albumin Lipase Vitamin B12 TSH Urine WBC (Auto) Urine Chloride Urine Total Protein Vancomycin Trough Crossmatch 10/13/16 10/13/16 10/13/16 16:14 16:14 17:17 WBC RBC Hgb Hct MCV RDW Plt Count Lymph % (Auto) Phillips % (Auto) Phillips # Seg Neutrophils % Seg Neuts % (Manual) Lymphocytes % (Manual) Monocytes % (Manual) Basophils % (Manual) Nucleated RBC % Seg Neutrophils # Seg Neutrophils # Man Lymphocytes # (Manual) Monocytes # (Manual) Eosinophils # (Manual) Basophils # (Manual) PT INR APTT Heparin Anti-Xa Level POC ABG pH POC ABG pCO2 POC ABG pO2 Sodium Potassium Chloride Carbon Dioxide 17 L BUN 58 H Creatinine 1.8 H Glucose 172 H POC Glucose 193 H Calcium 7.7 L Phosphorus Magnesium AST Alkaline Phosphatase C-Reactive Protein 10.50 H Total Protein Albumin Lipase Vitamin B12 TSH Urine WBC (Auto) Urine Chloride Urine Total Protein Vancomycin Trough Crossmatch 10/13/16 10/13/16 10/13/16 17:55 18:32 19:41 WBC RBC Hgb Hct MCV RDW Plt Count Lymph % (Auto) Phillips % (Auto) Phillips # Seg Neutrophils % Seg Neuts % (Manual) Lymphocytes % (Manual) Monocytes % (Manual) Basophils % (Manual) Nucleated RBC % Seg Neutrophils # Seg Neutrophils # Man Lymphocytes # (Manual) Monocytes # (Manual) Eosinophils # (Manual) Basophils # (Manual) PT INR APTT Heparin Anti-Xa Level POC ABG pH POC ABG pCO2 30.6 L POC ABG pO2 218 H Sodium Potassium Chloride Carbon Dioxide BUN Creatinine Glucose POC Glucose 192 H 177 H Calcium Phosphorus Magnesium AST Alkaline Phosphatase C-Reactive Protein Total Protein Albumin Lipase Vitamin B12 TSH Urine WBC (Auto) Urine Chloride Urine Total Protein Vancomycin Trough Crossmatch 10/13/16 10/13/16 10/13/16 20:54 22:07 23:13 WBC RBC Hgb Hct MCV RDW Plt Count Lymph % (Auto) Phillips % (Auto) Phillips # Seg Neutrophils % Seg Neuts % (Manual) Lymphocytes % (Manual) Monocytes % (Manual) Basophils % (Manual) Nucleated RBC % Seg Neutrophils # Seg Neutrophils # Man Lymphocytes # (Manual) Monocytes # (Manual) Eosinophils # (Manual) Basophils # (Manual) PT INR APTT Heparin Anti-Xa Level POC ABG pH POC ABG pCO2 POC ABG pO2 Sodium Potassium Chloride Carbon Dioxide BUN Creatinine Glucose POC Glucose 178 H 160 H 168 H Calcium Phosphorus Magnesium AST Alkaline Phosphatase C-Reactive Protein Total Protein Albumin Lipase Vitamin B12 TSH Urine WBC (Auto) Urine Chloride Urine Total Protein Vancomycin Trough Crossmatch 10/13/16 10/13/16 10/14/16 23:25 Unknown 00:21 WBC RBC Hgb Hct MCV RDW Plt Count Lymph % (Auto) Phillips % (Auto) Phillips # Seg Neutrophils % Seg Neuts % (Manual) Lymphocytes % (Manual) Monocytes % (Manual) Basophils % (Manual) Nucleated RBC % Seg Neutrophils # Seg Neutrophils # Man Lymphocytes # (Manual) Monocytes # (Manual) Eosinophils # (Manual) Basophils # (Manual) PT INR APTT Heparin Anti-Xa Level POC ABG pH POC ABG pCO2 POC ABG pO2 Sodium 148 H Potassium Chloride 114.6 H Carbon Dioxide 17 L BUN 56 H Creatinine 1.6 H Glucose 151 H POC Glucose 171 H Calcium 7.8 L Phosphorus Magnesium AST Alkaline Phosphatase C-Reactive Protein Total Protein Albumin Lipase Vitamin B12 TSH Urine WBC (Auto) Urine Chloride 10.0 L Urine Total Protein < 4 L Vancomycin Trough Crossmatch 10/14/16 10/14/16 10/14/16 01:22 02:29 03:30 WBC RBC Hgb Hct MCV RDW Plt Count Lymph % (Auto) Phillips % (Auto) Phillips # Seg Neutrophils % Seg Neuts % (Manual) Lymphocytes % (Manual) Monocytes % (Manual) Basophils % (Manual) Nucleated RBC % Seg Neutrophils # Seg Neutrophils # Man Lymphocytes # (Manual) Monocytes # (Manual) Eosinophils # (Manual) Basophils # (Manual) PT INR APTT Heparin Anti-Xa Level POC ABG pH POC ABG pCO2 POC ABG pO2 Sodium Potassium Chloride Carbon Dioxide BUN Creatinine Glucose POC Glucose 144 H 136 H 143 H Calcium Phosphorus Magnesium AST Alkaline Phosphatase C-Reactive Protein Total Protein Albumin Lipase Vitamin B12 TSH Urine WBC (Auto) Urine Chloride Urine Total Protein Vancomycin Trough Crossmatch 10/14/16 10/14/16 10/14/16 04:28 05:16 05:44 WBC RBC Hgb Hct MCV RDW Plt Count Lymph % (Auto) Phillips % (Auto) Phillips # Seg Neutrophils % Seg Neuts % (Manual) Lymphocytes % (Manual) Monocytes % (Manual) Basophils % (Manual) Nucleated RBC % Seg Neutrophils # Seg Neutrophils # Man Lymphocytes # (Manual) Monocytes # (Manual) Eosinophils # (Manual) Basophils # (Manual) PT INR APTT Heparin Anti-Xa Level POC ABG pH POC ABG pCO2 28.2 L POC ABG pO2 125 H Sodium Potassium Chloride Carbon Dioxide BUN Creatinine Glucose POC Glucose 133 H 160 H Calcium Phosphorus Magnesium AST Alkaline Phosphatase C-Reactive Protein Total Protein Albumin Lipase Vitamin B12 TSH Urine WBC (Auto) Urine Chloride Urine Total Protein Vancomycin Trough Crossmatch 10/14/16 10/14/16 10/14/16 06:12 06:45 07:03 WBC RBC Hgb Hct MCV RDW Plt Count Lymph % (Auto) Phillips % (Auto) Phillips # Seg Neutrophils % Seg Neuts % (Manual) Lymphocytes % (Manual) Monocytes % (Manual) Basophils % (Manual) Nucleated RBC % Seg Neutrophils # Seg Neutrophils # Man Lymphocytes # (Manual) Monocytes # (Manual) Eosinophils # (Manual) Basophils # (Manual) PT INR APTT Heparin Anti-Xa Level POC ABG pH POC ABG pCO2 POC ABG pO2 Sodium 149 H Potassium Chloride 115.4 H Carbon Dioxide 17 L BUN 45 H Creatinine 1.5 H Glucose 139 H POC Glucose 149 H Calcium 7.4 L Phosphorus 1.0 L D Magnesium AST Alkaline Phosphatase C-Reactive Protein Total Protein Albumin Lipase Vitamin B12 TSH Urine WBC (Auto) Urine Chloride Urine Total Protein Vancomycin Trough Crossmatch 10/14/16 10/14/16 10/14/16 07:03 08:02 09:16 WBC RBC Hgb Hct MCV RDW Plt Count Lymph % (Auto) Phillips % (Auto) Phillips # Seg Neutrophils % Seg Neuts % (Manual) Lymphocytes % (Manual) Monocytes % (Manual) Basophils % (Manual) Nucleated RBC % Seg Neutrophils # Seg Neutrophils # Man Lymphocytes # (Manual) Monocytes # (Manual) Eosinophils # (Manual) Basophils # (Manual) PT INR APTT Heparin Anti-Xa Level POC ABG pH POC ABG pCO2 POC ABG pO2 Sodium Potassium Chloride Carbon Dioxide BUN Creatinine Glucose POC Glucose 156 H 158 H Calcium Phosphorus Magnesium AST Alkaline Phosphatase C-Reactive Protein Total Protein Albumin Lipase 738 H Vitamin B12 TSH Urine WBC (Auto) Urine Chloride Urine Total Protein Vancomycin Trough Crossmatch 10/14/16 10/14/16 10/14/16 10:26 11:03 11:57 WBC RBC Hgb Hct MCV RDW Plt Count Lymph % (Auto) Phillips % (Auto) Phillips # Seg Neutrophils % Seg Neuts % (Manual) Lymphocytes % (Manual) Monocytes % (Manual) Basophils % (Manual) Nucleated RBC % Seg Neutrophils # Seg Neutrophils # Man Lymphocytes # (Manual) Monocytes # (Manual) Eosinophils # (Manual) Basophils # (Manual) PT INR APTT Heparin Anti-Xa Level POC ABG pH 7.198 L POC ABG pCO2 47.5 H POC ABG pO2 Sodium Potassium Chloride Carbon Dioxide BUN Creatinine Glucose POC Glucose 174 H 189 H Calcium Phosphorus Magnesium AST Alkaline Phosphatase C-Reactive Protein Total Protein Albumin Lipase Vitamin B12 TSH Urine WBC (Auto) Urine Chloride Urine Total Protein Vancomycin Trough Crossmatch 10/14/16 10/14/16 10/14/16 12:02 12:02 13:11 WBC 13.4 H RBC 3.60 L Hgb Hct MCV 98 H D RDW 13.1 L Plt Count Lymph % (Auto) Phillips % (Auto) Phillips # Seg Neutrophils % Seg Neuts % (Manual) Lymphocytes % (Manual) Monocytes % (Manual) Basophils % (Manual) Nucleated RBC % Seg Neutrophils # Seg Neutrophils # Man Lymphocytes # (Manual) Monocytes # (Manual) Eosinophils # (Manual) Basophils # (Manual) PT INR APTT Heparin Anti-Xa Level POC ABG pH POC ABG pCO2 POC ABG pO2 Sodium Potassium Chloride 110.7 H Carbon Dioxide 19 L BUN 38 H Creatinine 1.4 H Glucose 182 H POC Glucose 173 H Calcium 7.5 L Phosphorus Magnesium AST Alkaline Phosphatase C-Reactive Protein Total Protein Albumin Lipase Vitamin B12 TSH Urine WBC (Auto) Urine Chloride Urine Total Protein Vancomycin Trough Crossmatch 10/14/16 10/14/16 10/14/16 14:24 15:31 16:36 WBC RBC Hgb Hct MCV RDW Plt Count Lymph % (Auto) Phillips % (Auto) Phillips # Seg Neutrophils % Seg Neuts % (Manual) Lymphocytes % (Manual) Monocytes % (Manual) Basophils % (Manual) Nucleated RBC % Seg Neutrophils # Seg Neutrophils # Man Lymphocytes # (Manual) Monocytes # (Manual) Eosinophils # (Manual) Basophils # (Manual) PT INR APTT Heparin Anti-Xa Level POC ABG pH POC ABG pCO2 POC ABG pO2 Sodium Potassium Chloride Carbon Dioxide BUN Creatinine Glucose POC Glucose 123 H 124 H 156 H Calcium Phosphorus Magnesium AST Alkaline Phosphatase C-Reactive Protein Total Protein Albumin Lipase Vitamin B12 TSH Urine WBC (Auto) Urine Chloride Urine Total Protein Vancomycin Trough Crossmatch 10/14/16 10/14/16 10/14/16 17:43 19:00 20:08 WBC RBC Hgb Hct MCV RDW Plt Count Lymph % (Auto) Phillips % (Auto) Phillips # Seg Neutrophils % Seg Neuts % (Manual) Lymphocytes % (Manual) Monocytes % (Manual) Basophils % (Manual) Nucleated RBC % Seg Neutrophils # Seg Neutrophils # Man Lymphocytes # (Manual) Monocytes # (Manual) Eosinophils # (Manual) Basophils # (Manual) PT INR APTT Heparin Anti-Xa Level POC ABG pH POC ABG pCO2 POC ABG pO2 Sodium Potassium Chloride Carbon Dioxide BUN Creatinine Glucose POC Glucose 154 H 123 H 138 H Calcium Phosphorus Magnesium AST Alkaline Phosphatase C-Reactive Protein Total Protein Albumin Lipase Vitamin B12 TSH Urine WBC (Auto) Urine Chloride Urine Total Protein Vancomycin Trough Crossmatch 10/14/16 10/14/16 10/14/16 21:17 22:25 23:37 WBC RBC Hgb Hct MCV RDW Plt Count Lymph % (Auto) Phillips % (Auto) Phillips # Seg Neutrophils % Seg Neuts % (Manual) Lymphocytes % (Manual) Monocytes % (Manual) Basophils % (Manual) Nucleated RBC % Seg Neutrophils # Seg Neutrophils # Man Lymphocytes # (Manual) Monocytes # (Manual) Eosinophils # (Manual) Basophils # (Manual) PT INR APTT Heparin Anti-Xa Level POC ABG pH POC ABG pCO2 POC ABG pO2 Sodium Potassium Chloride Carbon Dioxide BUN Creatinine Glucose POC Glucose 148 H 132 H 137 H Calcium Phosphorus Magnesium AST Alkaline Phosphatase C-Reactive Protein Total Protein Albumin Lipase Vitamin B12 TSH Urine WBC (Auto) Urine Chloride Urine Total Protein Vancomycin Trough Crossmatch 10/15/16 10/15/16 10/15/16 00:49 01:53 03:06 WBC RBC Hgb Hct MCV RDW Plt Count Lymph % (Auto) Phillips % (Auto) Phillips # Seg Neutrophils % Seg Neuts % (Manual) Lymphocytes % (Manual) Monocytes % (Manual) Basophils % (Manual) Nucleated RBC % Seg Neutrophils # Seg Neutrophils # Man Lymphocytes # (Manual) Monocytes # (Manual) Eosinophils # (Manual) Basophils # (Manual) PT INR APTT Heparin Anti-Xa Level POC ABG pH POC ABG pCO2 POC ABG pO2 Sodium Potassium Chloride Carbon Dioxide BUN Creatinine Glucose POC Glucose 132 H 134 H 134 H Calcium Phosphorus Magnesium AST Alkaline Phosphatase C-Reactive Protein Total Protein Albumin Lipase Vitamin B12 TSH Urine WBC (Auto) Urine Chloride Urine Total Protein Vancomycin Trough Crossmatch 10/15/16 10/15/16 10/15/16 04:40 04:46 06:21 WBC RBC Hgb Hct MCV RDW Plt Count Lymph % (Auto) Phillips % (Auto) Phillips # Seg Neutrophils % Seg Neuts % (Manual) Lymphocytes % (Manual) Monocytes % (Manual) Basophils % (Manual) Nucleated RBC % Seg Neutrophils # Seg Neutrophils # Man Lymphocytes # (Manual) Monocytes # (Manual) Eosinophils # (Manual) Basophils # (Manual) PT INR APTT Heparin Anti-Xa Level POC ABG pH POC ABG pCO2 30.7 L POC ABG pO2 108 H Sodium Potassium Chloride 109.0 H Carbon Dioxide 17 L BUN 27 H Creatinine Glucose 124 H POC Glucose 160 H Calcium 7.5 L Phosphorus Magnesium AST 79 H Alkaline Phosphatase C-Reactive Protein Total Protein 5.5 L Albumin 3.0 L Lipase Vitamin B12 TSH Urine WBC (Auto) Urine Chloride Urine Total Protein Vancomycin Trough Crossmatch 10/15/16 10/15/16 10/15/16 07:12 08:01 09:03 WBC RBC Hgb Hct MCV RDW Plt Count Lymph % (Auto) Phillips % (Auto) Phillips # Seg Neutrophils % Seg Neuts % (Manual) Lymphocytes % (Manual) Monocytes % (Manual) Basophils % (Manual) Nucleated RBC % Seg Neutrophils # Seg Neutrophils # Man Lymphocytes # (Manual) Monocytes # (Manual) Eosinophils # (Manual) Basophils # (Manual) PT INR APTT Heparin Anti-Xa Level POC ABG pH POC ABG pCO2 POC ABG pO2 Sodium Potassium Chloride Carbon Dioxide BUN Creatinine Glucose POC Glucose 179 H 187 H 165 H Calcium Phosphorus Magnesium AST Alkaline Phosphatase C-Reactive Protein Total Protein Albumin Lipase Vitamin B12 TSH Urine WBC (Auto) Urine Chloride Urine Total Protein Vancomycin Trough Crossmatch 10/15/16 10/15/16 10/15/16 10:06 10:06 10:07 WBC 12.1 H RBC 3.01 L Hgb 9.7 L Hct 29.6 L MCV 98 H RDW Plt Count 129 L Lymph % (Auto) Phillips % (Auto) Phillips # Seg Neutrophils % Seg Neuts % (Manual) Lymphocytes % (Manual) Monocytes % (Manual) Basophils % (Manual) Nucleated RBC % Seg Neutrophils # Seg Neutrophils # Man Lymphocytes # (Manual) Monocytes # (Manual) Eosinophils # (Manual) Basophils # (Manual) PT INR APTT Heparin Anti-Xa Level POC ABG pH POC ABG pCO2 POC ABG pO2 Sodium Potassium 3.2 L D Chloride 109.6 H Carbon Dioxide 18 L BUN 22 H Creatinine Glucose 127 H POC Glucose 147 H Calcium 7.0 L Phosphorus Magnesium AST Alkaline Phosphatase C-Reactive Protein Total Protein Albumin Lipase Vitamin B12 TSH Urine WBC (Auto) Urine Chloride Urine Total Protein Vancomycin Trough Crossmatch 10/15/16 10/15/16 10/15/16 11:05 11:06 11:57 WBC RBC Hgb Hct MCV RDW Plt Count Lymph % (Auto) Phillips % (Auto) Phillips # Seg Neutrophils % Seg Neuts % (Manual) Lymphocytes % (Manual) Monocytes % (Manual) Basophils % (Manual) Nucleated RBC % Seg Neutrophils # Seg Neutrophils # Man Lymphocytes # (Manual) Monocytes # (Manual) Eosinophils # (Manual) Basophils # (Manual) PT INR APTT Heparin Anti-Xa Level POC ABG pH 7.305 L POC ABG pCO2 POC ABG pO2 Sodium Potassium Chloride Carbon Dioxide BUN Creatinine Glucose POC Glucose 145 H Calcium Phosphorus Magnesium AST Alkaline Phosphatase C-Reactive Protein Total Protein Albumin Lipase Vitamin B12 TSH Urine WBC (Auto) 7.0 H Urine Chloride Urine Total Protein Vancomycin Trough Crossmatch 10/15/16 10/15/16 10/15/16 12:04 13:59 15:24 WBC RBC Hgb Hct MCV RDW Plt Count Lymph % (Auto) Phillips % (Auto) Phillips # Seg Neutrophils % Seg Neuts % (Manual) Lymphocytes % (Manual) Monocytes % (Manual) Basophils % (Manual) Nucleated RBC % Seg Neutrophils # Seg Neutrophils # Man Lymphocytes # (Manual) Monocytes # (Manual) Eosinophils # (Manual) Basophils # (Manual) PT INR APTT Heparin Anti-Xa Level POC ABG pH POC ABG pCO2 POC ABG pO2 Sodium Potassium Chloride Carbon Dioxide BUN Creatinine Glucose POC Glucose 123 H 147 H 153 H Calcium Phosphorus Magnesium AST Alkaline Phosphatase C-Reactive Protein Total Protein Albumin Lipase Vitamin B12 TSH Urine WBC (Auto) Urine Chloride Urine Total Protein Vancomycin Trough Crossmatch 10/15/16 10/15/16 10/15/16 16:30 17:34 18:30 WBC RBC Hgb Hct MCV RDW Plt Count Lymph % (Auto) Phillips % (Auto) Phillips # Seg Neutrophils % Seg Neuts % (Manual) Lymphocytes % (Manual) Monocytes % (Manual) Basophils % (Manual) Nucleated RBC % Seg Neutrophils # Seg Neutrophils # Man Lymphocytes # (Manual) Monocytes # (Manual) Eosinophils # (Manual) Basophils # (Manual) PT INR APTT Heparin Anti-Xa Level POC ABG pH POC ABG pCO2 POC ABG pO2 Sodium Potassium Chloride Carbon Dioxide BUN Creatinine Glucose POC Glucose 223 H 236 H 164 H Calcium Phosphorus Magnesium AST Alkaline Phosphatase C-Reactive Protein Total Protein Albumin Lipase Vitamin B12 TSH Urine WBC (Auto) Urine Chloride Urine Total Protein Vancomycin Trough Crossmatch 10/15/16 10/15/16 10/15/16 19:14 20:31 21:23 WBC RBC Hgb Hct MCV RDW Plt Count Lymph % (Auto) Phillips % (Auto) Phillips # Seg Neutrophils % Seg Neuts % (Manual) Lymphocytes % (Manual) Monocytes % (Manual) Basophils % (Manual) Nucleated RBC % Seg Neutrophils # Seg Neutrophils # Man Lymphocytes # (Manual) Monocytes # (Manual) Eosinophils # (Manual) Basophils # (Manual) PT INR APTT Heparin Anti-Xa Level POC ABG pH POC ABG pCO2 POC ABG pO2 Sodium Potassium Chloride Carbon Dioxide BUN Creatinine Glucose POC Glucose 138 H 158 H 158 H Calcium Phosphorus Magnesium AST Alkaline Phosphatase C-Reactive Protein Total Protein Albumin Lipase Vitamin B12 TSH Urine WBC (Auto) Urine Chloride Urine Total Protein Vancomycin Trough Crossmatch 10/15/16 10/15/16 10/16/16 22:04 22:57 00:11 WBC RBC Hgb Hct MCV RDW Plt Count Lymph % (Auto) Phillips % (Auto) Phillips # Seg Neutrophils % Seg Neuts % (Manual) Lymphocytes % (Manual) Monocytes % (Manual) Basophils % (Manual) Nucleated RBC % Seg Neutrophils # Seg Neutrophils # Man Lymphocytes # (Manual) Monocytes # (Manual) Eosinophils # (Manual) Basophils # (Manual) PT INR APTT Heparin Anti-Xa Level POC ABG pH POC ABG pCO2 POC ABG pO2 Sodium Potassium Chloride Carbon Dioxide BUN Creatinine Glucose POC Glucose 168 H 213 H 166 H Calcium Phosphorus Magnesium AST Alkaline Phosphatase C-Reactive Protein Total Protein Albumin Lipase Vitamin B12 TSH Urine WBC (Auto) Urine Chloride Urine Total Protein Vancomycin Trough Crossmatch 10/16/16 10/16/16 10/16/16 01:16 02:32 03:38 WBC RBC Hgb Hct MCV RDW Plt Count Lymph % (Auto) Phillips % (Auto) Phillips # Seg Neutrophils % Seg Neuts % (Manual) Lymphocytes % (Manual) Monocytes % (Manual) Basophils % (Manual) Nucleated RBC % Seg Neutrophils # Seg Neutrophils # Man Lymphocytes # (Manual) Monocytes # (Manual) Eosinophils # (Manual) Basophils # (Manual) PT INR APTT Heparin Anti-Xa Level POC ABG pH POC ABG pCO2 POC ABG pO2 Sodium Potassium Chloride Carbon Dioxide BUN Creatinine Glucose POC Glucose 171 H 164 H 147 H Calcium Phosphorus Magnesium AST Alkaline Phosphatase C-Reactive Protein Total Protein Albumin Lipase Vitamin B12 TSH Urine WBC (Auto) Urine Chloride Urine Total Protein Vancomycin Trough Crossmatch 10/16/16 10/16/16 10/16/16 04:14 04:14 04:49 WBC RBC Hgb Hct MCV RDW Plt Count Lymph % (Auto) Phillips % (Auto) Phillips # Seg Neutrophils % Seg Neuts % (Manual) Lymphocytes % (Manual) Monocytes % (Manual) Basophils % (Manual) Nucleated RBC % Seg Neutrophils # Seg Neutrophils # Man Lymphocytes # (Manual) Monocytes # (Manual) Eosinophils # (Manual) Basophils # (Manual) PT INR APTT Heparin Anti-Xa Level POC ABG pH POC ABG pCO2 POC ABG pO2 Sodium 147 H Potassium Chloride 110.9 H Carbon Dioxide 19 L BUN Creatinine Glucose 139 H POC Glucose 144 H Calcium 7.3 L Phosphorus 2.3 L Magnesium AST Alkaline Phosphatase C-Reactive Protein Total Protein Albumin Lipase 143 H Vitamin B12 TSH Urine WBC (Auto) Urine Chloride Urine Total Protein Vancomycin Trough Crossmatch 10/16/16 10/16/16 10/16/16 05:03 05:41 05:58 WBC 16.5 H RBC 3.36 L Hgb Hct MCV 98 H RDW 13.1 L Plt Count Lymph % (Auto) 8.5 L Phillips % (Auto) 7.6 H Phillips # 1.3 H Seg Neutrophils % 83.3 H Seg Neuts % (Manual) Lymphocytes % (Manual) Monocytes % (Manual) Basophils % (Manual) Nucleated RBC % Seg Neutrophils # 13.8 H Seg Neutrophils # Man Lymphocytes # (Manual) Monocytes # (Manual) Eosinophils # (Manual) Basophils # (Manual) PT INR APTT Heparin Anti-Xa Level POC ABG pH POC ABG pCO2 30.7 L POC ABG pO2 128 H Sodium Potassium Chloride Carbon Dioxide BUN Creatinine Glucose POC Glucose 131 H Calcium Phosphorus Magnesium AST Alkaline Phosphatase C-Reactive Protein Total Protein Albumin Lipase Vitamin B12 TSH Urine WBC (Auto) Urine Chloride Urine Total Protein Vancomycin Trough Crossmatch 10/16/16 10/16/16 10/16/16 06:32 09:27 09:35 WBC RBC Hgb Hct MCV RDW Plt Count Lymph % (Auto) Phillips % (Auto) Phillips # Seg Neutrophils % Seg Neuts % (Manual) Lymphocytes % (Manual) Monocytes % (Manual) Basophils % (Manual) Nucleated RBC % Seg Neutrophils # Seg Neutrophils # Man Lymphocytes # (Manual) Monocytes # (Manual) Eosinophils # (Manual) Basophils # (Manual) PT INR APTT Heparin Anti-Xa Level POC ABG pH POC ABG pCO2 32.8 L POC ABG pO2 137 H Sodium Potassium Chloride Carbon Dioxide BUN Creatinine Glucose POC Glucose 121 H 150 H Calcium Phosphorus Magnesium AST Alkaline Phosphatase C-Reactive Protein Total Protein Albumin Lipase Vitamin B12 TSH Urine WBC (Auto) Urine Chloride Urine Total Protein Vancomycin Trough Crossmatch 10/16/16 10/16/16 10/16/16 10:47 13:27 14:24 WBC RBC Hgb Hct MCV RDW Plt Count Lymph % (Auto) Phillips % (Auto) Phillips # Seg Neutrophils % Seg Neuts % (Manual) Lymphocytes % (Manual) Monocytes % (Manual) Basophils % (Manual) Nucleated RBC % Seg Neutrophils # Seg Neutrophils # Man Lymphocytes # (Manual) Monocytes # (Manual) Eosinophils # (Manual) Basophils # (Manual) PT INR APTT Heparin Anti-Xa Level POC ABG pH POC ABG pCO2 POC ABG pO2 Sodium Potassium Chloride Carbon Dioxide BUN Creatinine Glucose POC Glucose 184 H 171 H 174 H Calcium Phosphorus Magnesium AST Alkaline Phosphatase C-Reactive Protein Total Protein Albumin Lipase Vitamin B12 TSH Urine WBC (Auto) Urine Chloride Urine Total Protein Vancomycin Trough Crossmatch 10/16/16 10/16/16 10/16/16 15:48 16:26 18:17 WBC RBC Hgb Hct MCV RDW Plt Count Lymph % (Auto) Phillips % (Auto) Phillips # Seg Neutrophils % Seg Neuts % (Manual) Lymphocytes % (Manual) Monocytes % (Manual) Basophils % (Manual) Nucleated RBC % Seg Neutrophils # Seg Neutrophils # Man Lymphocytes # (Manual) Monocytes # (Manual) Eosinophils # (Manual) Basophils # (Manual) PT INR APTT Heparin Anti-Xa Level POC ABG pH POC ABG pCO2 POC ABG pO2 Sodium Potassium Chloride Carbon Dioxide BUN Creatinine Glucose POC Glucose 205 H 204 H 234 H Calcium Phosphorus Magnesium AST Alkaline Phosphatase C-Reactive Protein Total Protein Albumin Lipase Vitamin B12 TSH Urine WBC (Auto) Urine Chloride Urine Total Protein Vancomycin Trough Crossmatch 10/16/16 10/16/16 10/16/16 19:40 20:33 21:36 WBC RBC Hgb Hct MCV RDW Plt Count Lymph % (Auto) Phillips % (Auto) Phillips # Seg Neutrophils % Seg Neuts % (Manual) Lymphocytes % (Manual) Monocytes % (Manual) Basophils % (Manual) Nucleated RBC % Seg Neutrophils # Seg Neutrophils # Man Lymphocytes # (Manual) Monocytes # (Manual) Eosinophils # (Manual) Basophils # (Manual) PT INR APTT Heparin Anti-Xa Level POC ABG pH POC ABG pCO2 POC ABG pO2 Sodium Potassium Chloride Carbon Dioxide BUN Creatinine Glucose POC Glucose 167 H 153 H 158 H Calcium Phosphorus Magnesium AST Alkaline Phosphatase C-Reactive Protein Total Protein Albumin Lipase Vitamin B12 TSH Urine WBC (Auto) Urine Chloride Urine Total Protein Vancomycin Trough Crossmatch 10/16/16 10/16/16 10/17/16 22:54 23:48 00:47 WBC RBC Hgb Hct MCV RDW Plt Count Lymph % (Auto) Phillips % (Auto) Phillips # Seg Neutrophils % Seg Neuts % (Manual) Lymphocytes % (Manual) Monocytes % (Manual) Basophils % (Manual) Nucleated RBC % Seg Neutrophils # Seg Neutrophils # Man Lymphocytes # (Manual) Monocytes # (Manual) Eosinophils # (Manual) Basophils # (Manual) PT INR APTT Heparin Anti-Xa Level POC ABG pH POC ABG pCO2 POC ABG pO2 Sodium Potassium Chloride Carbon Dioxide BUN Creatinine Glucose POC Glucose 180 H 207 H 196 H Calcium Phosphorus Magnesium AST Alkaline Phosphatase C-Reactive Protein Total Protein Albumin Lipase Vitamin B12 TSH Urine WBC (Auto) Urine Chloride Urine Total Protein Vancomycin Trough Crossmatch 10/17/16 10/17/16 10/17/16 01:57 02:49 03:50 WBC RBC Hgb Hct MCV RDW Plt Count Lymph % (Auto) Phillips % (Auto) Phillips # Seg Neutrophils % Seg Neuts % (Manual) Lymphocytes % (Manual) Monocytes % (Manual) Basophils % (Manual) Nucleated RBC % Seg Neutrophils # Seg Neutrophils # Man Lymphocytes # (Manual) Monocytes # (Manual) Eosinophils # (Manual) Basophils # (Manual) PT INR APTT Heparin Anti-Xa Level POC ABG pH POC ABG pCO2 POC ABG pO2 Sodium Potassium Chloride Carbon Dioxide BUN Creatinine Glucose POC Glucose 180 H 151 H 106 H Calcium Phosphorus Magnesium AST Alkaline Phosphatase C-Reactive Protein Total Protein Albumin Lipase Vitamin B12 TSH Urine WBC (Auto) Urine Chloride Urine Total Protein Vancomycin Trough Crossmatch 10/17/16 10/17/16 10/17/16 04:59 06:03 06:35 WBC RBC Hgb Hct MCV RDW Plt Count Lymph % (Auto) Phillips % (Auto) Phillips # Seg Neutrophils % Seg Neuts % (Manual) Lymphocytes % (Manual) Monocytes % (Manual) Basophils % (Manual) Nucleated RBC % Seg Neutrophils # Seg Neutrophils # Man Lymphocytes # (Manual) Monocytes # (Manual) Eosinophils # (Manual) Basophils # (Manual) PT INR APTT Heparin Anti-Xa Level POC ABG pH 7.453 H POC ABG pCO2 30.1 L POC ABG pO2 111 H Sodium Potassium Chloride Carbon Dioxide BUN Creatinine Glucose POC Glucose 145 H 157 H Calcium Phosphorus Magnesium AST Alkaline Phosphatase C-Reactive Protein Total Protein Albumin Lipase Vitamin B12 TSH Urine WBC (Auto) Urine Chloride Urine Total Protein Vancomycin Trough Crossmatch 10/17/16 10/17/16 10/17/16 07:08 07:11 08:01 WBC RBC Hgb Hct MCV RDW Plt Count Lymph % (Auto) Phillips % (Auto) Phillips # Seg Neutrophils % Seg Neuts % (Manual) Lymphocytes % (Manual) Monocytes % (Manual) Basophils % (Manual) Nucleated RBC % Seg Neutrophils # Seg Neutrophils # Man Lymphocytes # (Manual) Monocytes # (Manual) Eosinophils # (Manual) Basophils # (Manual) PT INR APTT Heparin Anti-Xa Level POC ABG pH POC ABG pCO2 POC ABG pO2 Sodium 147 H Potassium Chloride 113.8 H Carbon Dioxide 19 L BUN Creatinine Glucose 136 H POC Glucose 136 H 152 H Calcium 7.7 L Phosphorus Magnesium AST Alkaline Phosphatase C-Reactive Protein Total Protein Albumin Lipase Vitamin B12 TSH Urine WBC (Auto) Urine Chloride Urine Total Protein Vancomycin Trough Crossmatch 10/17/16 10/17/16 10/17/16 08:23 09:17 09:53 WBC 18.1 H RBC 3.01 L Hgb 9.7 L Hct 29.4 L MCV 98 H RDW Plt Count 116 L Lymph % (Auto) Phillips % (Auto) Phillips # Seg Neutrophils % Seg Neuts % (Manual) 77.0 H Lymphocytes % (Manual) 4.0 L Monocytes % (Manual) 12.0 H Basophils % (Manual) Nucleated RBC % Seg Neutrophils # Seg Neutrophils # Man 13.9 H Lymphocytes # (Manual) 0.7 L Monocytes # (Manual) 2.2 H Eosinophils # (Manual) Basophils # (Manual) PT INR APTT Heparin Anti-Xa Level POC ABG pH POC ABG pCO2 POC ABG pO2 Sodium Potassium Chloride Carbon Dioxide BUN Creatinine Glucose POC Glucose 148 H 137 H Calcium Phosphorus Magnesium AST Alkaline Phosphatase C-Reactive Protein Total Protein Albumin Lipase Vitamin B12 TSH Urine WBC (Auto) Urine Chloride Urine Total Protein Vancomycin Trough Crossmatch 10/17/16 10/17/16 10/17/16 11:43 16:07 17:42 WBC RBC Hgb Hct MCV RDW Plt Count Lymph % (Auto) Phillips % (Auto) Phillips # Seg Neutrophils % Seg Neuts % (Manual) Lymphocytes % (Manual) Monocytes % (Manual) Basophils % (Manual) Nucleated RBC % Seg Neutrophils # Seg Neutrophils # Man Lymphocytes # (Manual) Monocytes # (Manual) Eosinophils # (Manual) Basophils # (Manual) PT 16.4 H INR 1.33 H APTT 38.8 H Heparin Anti-Xa Level POC ABG pH POC ABG pCO2 POC ABG pO2 Sodium Potassium Chloride Carbon Dioxide BUN Creatinine Glucose POC Glucose 179 H 153 H Calcium Phosphorus Magnesium AST Alkaline Phosphatase C-Reactive Protein Total Protein Albumin Lipase Vitamin B12 TSH Urine WBC (Auto) Urine Chloride Urine Total Protein Vancomycin Trough Crossmatch 10/17/16 10/18/16 10/18/16 22:54 04:37 05:39 WBC RBC Hgb Hct MCV RDW Plt Count Lymph % (Auto) Phillips % (Auto) Phillips # Seg Neutrophils % Seg Neuts % (Manual) Lymphocytes % (Manual) Monocytes % (Manual) Basophils % (Manual) Nucleated RBC % Seg Neutrophils # Seg Neutrophils # Man Lymphocytes # (Manual) Monocytes # (Manual) Eosinophils # (Manual) Basophils # (Manual) PT INR APTT Heparin Anti-Xa Level 0.27 L POC ABG pH 7.454 H POC ABG pCO2 30.8 L POC ABG pO2 115 H Sodium Potassium Chloride Carbon Dioxide BUN Creatinine Glucose POC Glucose 69 L Calcium Phosphorus Magnesium AST Alkaline Phosphatase C-Reactive Protein Total Protein Albumin Lipase Vitamin B12 TSH Urine WBC (Auto) Urine Chloride Urine Total Protein Vancomycin Trough Crossmatch 10/18/16 10/18/16 10/18/16 06:46 06:46 06:46 WBC 20.5 H RBC 2.62 L Hgb 8.4 L Hct 26.0 L MCV 100 H RDW Plt Count Lymph % (Auto) Phillips % (Auto) Phillips # Seg Neutrophils % Seg Neuts % (Manual) 75.0 H Lymphocytes % (Manual) 9.0 L Monocytes % (Manual) 14.0 H Basophils % (Manual) Nucleated RBC % Seg Neutrophils # Seg Neutrophils # Man 15.4 H Lymphocytes # (Manual) Monocytes # (Manual) 2.9 H Eosinophils # (Manual) Basophils # (Manual) PT INR APTT Heparin Anti-Xa Level POC ABG pH POC ABG pCO2 POC ABG pO2 Sodium Potassium Chloride 110.6 H Carbon Dioxide BUN Creatinine 1.3 H Glucose 153 H POC Glucose Calcium 8.0 L Phosphorus Magnesium 1.6 L AST Alkaline Phosphatase C-Reactive Protein Total Protein Albumin Lipase Vitamin B12 TSH Urine WBC (Auto) Urine Chloride Urine Total Protein Vancomycin Trough Crossmatch 10/18/16 10/18/16 10/18/16 07:30 11:37 17:51 WBC RBC Hgb Hct MCV RDW Plt Count Lymph % (Auto) Phillips % (Auto) Phillips # Seg Neutrophils % Seg Neuts % (Manual) Lymphocytes % (Manual) Monocytes % (Manual) Basophils % (Manual) Nucleated RBC % Seg Neutrophils # Seg Neutrophils # Man Lymphocytes # (Manual) Monocytes # (Manual) Eosinophils # (Manual) Basophils # (Manual) PT INR APTT Heparin Anti-Xa Level POC ABG pH POC ABG pCO2 POC ABG pO2 Sodium Potassium Chloride Carbon Dioxide BUN Creatinine Glucose POC Glucose 162 H 156 H 164 H Calcium Phosphorus Magnesium AST Alkaline Phosphatase C-Reactive Protein Total Protein Albumin Lipase Vitamin B12 TSH Urine WBC (Auto) Urine Chloride Urine Total Protein Vancomycin Trough Crossmatch 10/18/16 10/19/16 10/19/16 23:44 03:59 05:13 WBC 18.2 H RBC 2.76 L Hgb 9.0 L Hct 27.7 L MCV 100 H RDW Plt Count Lymph % (Auto) Phillips % (Auto) Phillips # Seg Neutrophils % Seg Neuts % (Manual) 76.0 H Lymphocytes % (Manual) 10.0 L Monocytes % (Manual) Basophils % (Manual) Nucleated RBC % Seg Neutrophils # Seg Neutrophils # Man 13.8 H Lymphocytes # (Manual) Monocytes # (Manual) Eosinophils # (Manual) Basophils # (Manual) PT INR APTT Heparin Anti-Xa Level POC ABG pH POC ABG pCO2 32.2 L POC ABG pO2 128 H Sodium Potassium Chloride Carbon Dioxide BUN Creatinine Glucose POC Glucose 278 H Calcium Phosphorus Magnesium AST Alkaline Phosphatase C-Reactive Protein Total Protein Albumin Lipase Vitamin B12 TSH Urine WBC (Auto) Urine Chloride Urine Total Protein Vancomycin Trough Crossmatch 10/19/16 10/19/16 10/19/16 06:01 06:30 12:20 WBC RBC Hgb Hct MCV RDW Plt Count Lymph % (Auto) Phillips % (Auto) Phillips # Seg Neutrophils % Seg Neuts % (Manual) Lymphocytes % (Manual) Monocytes % (Manual) Basophils % (Manual) Nucleated RBC % Seg Neutrophils # Seg Neutrophils # Man Lymphocytes # (Manual) Monocytes # (Manual) Eosinophils # (Manual) Basophils # (Manual) PT INR APTT Heparin Anti-Xa Level POC ABG pH POC ABG pCO2 POC ABG pO2 Sodium Potassium Chloride Carbon Dioxide 18 L BUN Creatinine 1.3 H Glucose 262 H POC Glucose 261 H 349 H Calcium 7.7 L Phosphorus 4.8 H D Magnesium AST Alkaline Phosphatase C-Reactive Protein Total Protein Albumin Lipase Vitamin B12 TSH Urine WBC (Auto) Urine Chloride Urine Total Protein Vancomycin Trough Crossmatch 10/19/16 10/20/16 10/20/16 16:48 00:17 05:20 WBC 22.5 H RBC 2.80 L Hgb 8.9 L Hct 28.3 L MCV 101 H RDW Plt Count Lymph % (Auto) Phillips % (Auto) Phillips # Seg Neutrophils % Seg Neuts % (Manual) Lymphocytes % (Manual) 10.0 L Monocytes % (Manual) Basophils % (Manual) Nucleated RBC % Seg Neutrophils # Seg Neutrophils # Man 13.3 H Lymphocytes # (Manual) Monocytes # (Manual) 1.1 H Eosinophils # (Manual) 0.7 H Basophils # (Manual) PT INR APTT Heparin Anti-Xa Level POC ABG pH POC ABG pCO2 POC ABG pO2 Sodium Potassium Chloride Carbon Dioxide BUN Creatinine Glucose POC Glucose 248 H 346 H Calcium Phosphorus Magnesium AST Alkaline Phosphatase C-Reactive Protein Total Protein Albumin Lipase Vitamin B12 TSH Urine WBC (Auto) Urine Chloride Urine Total Protein Vancomycin Trough Crossmatch 10/20/16 10/20/16 10/20/16 05:20 05:20 06:05 WBC RBC Hgb Hct MCV RDW Plt Count Lymph % (Auto) Phillips % (Auto) Phillips # Seg Neutrophils % Seg Neuts % (Manual) Lymphocytes % (Manual) Monocytes % (Manual) Basophils % (Manual) Nucleated RBC % Seg Neutrophils # Seg Neutrophils # Man Lymphocytes # (Manual) Monocytes # (Manual) Eosinophils # (Manual) Basophils # (Manual) PT INR APTT Heparin Anti-Xa Level 0.20 L POC ABG pH POC ABG pCO2 POC ABG pO2 Sodium Potassium Chloride Carbon Dioxide BUN 20 H Creatinine Glucose 374 H POC Glucose 337 H Calcium 8.3 L Phosphorus Magnesium AST Alkaline Phosphatase C-Reactive Protein Total Protein Albumin Lipase Vitamin B12 TSH Urine WBC (Auto) Urine Chloride Urine Total Protein Vancomycin Trough Crossmatch 10/20/16 10/20/16 10/20/16 11:49 13:59 17:56 WBC RBC Hgb Hct MCV RDW Plt Count Lymph % (Auto) Phillips % (Auto) Phillips # Seg Neutrophils % Seg Neuts % (Manual) Lymphocytes % (Manual) Monocytes % (Manual) Basophils % (Manual) Nucleated RBC % Seg Neutrophils # Seg Neutrophils # Man Lymphocytes # (Manual) Monocytes # (Manual) Eosinophils # (Manual) Basophils # (Manual) PT INR APTT Heparin Anti-Xa Level 2.00 H POC ABG pH POC ABG pCO2 POC ABG pO2 Sodium Potassium Chloride Carbon Dioxide BUN Creatinine Glucose POC Glucose 305 H 362 H Calcium Phosphorus Magnesium AST Alkaline Phosphatase C-Reactive Protein Total Protein Albumin Lipase Vitamin B12 TSH Urine WBC (Auto) Urine Chloride Urine Total Protein Vancomycin Trough Crossmatch 10/20/16 10/21/16 10/21/16 23:52 05:00 05:49 WBC 22.9 H RBC 2.49 L Hgb 7.7 L Hct 25.6 L MCV 103 H RDW Plt Count Lymph % (Auto) Phillips % (Auto) Phillips # Seg Neutrophils % Seg Neuts % (Manual) 94.0 H Lymphocytes % (Manual) 1.0 L Monocytes % (Manual) Basophils % (Manual) Nucleated RBC % Seg Neutrophils # Seg Neutrophils # Man 21.5 H Lymphocytes # (Manual) 0.2 L Monocytes # (Manual) 1.1 H Eosinophils # (Manual) Basophils # (Manual) PT INR APTT Heparin Anti-Xa Level POC ABG pH POC ABG pCO2 POC ABG pO2 Sodium Potassium Chloride Carbon Dioxide BUN Creatinine Glucose POC Glucose 252 H 180 H Calcium Phosphorus Magnesium AST Alkaline Phosphatase C-Reactive Protein Total Protein Albumin Lipase Vitamin B12 TSH Urine WBC (Auto) Urine Chloride Urine Total Protein Vancomycin Trough Crossmatch 10/21/16 10/21/16 10/21/16 11:47 11:49 14:10 WBC RBC Hgb Hct MCV RDW Plt Count Lymph % (Auto) Phillips % (Auto) Phillips # Seg Neutrophils % Seg Neuts % (Manual) Lymphocytes % (Manual) Monocytes % (Manual) Basophils % (Manual) Nucleated RBC % Seg Neutrophils # Seg Neutrophils # Man Lymphocytes # (Manual) Monocytes # (Manual) Eosinophils # (Manual) Basophils # (Manual) PT INR APTT Heparin Anti-Xa Level POC ABG pH POC ABG pCO2 POC ABG pO2 Sodium Potassium Chloride Carbon Dioxide BUN Creatinine Glucose POC Glucose 50 L 56 L 140 H Calcium Phosphorus Magnesium AST Alkaline Phosphatase C-Reactive Protein Total Protein Albumin Lipase Vitamin B12 TSH Urine WBC (Auto) Urine Chloride Urine Total Protein Vancomycin Trough Crossmatch 10/21/16 10/21/16 10/22/16 18:24 Unknown 00:07 WBC RBC Hgb Hct MCV RDW Plt Count Lymph % (Auto) Phillips % (Auto) Phillips # Seg Neutrophils % Seg Neuts % (Manual) Lymphocytes % (Manual) Monocytes % (Manual) Basophils % (Manual) Nucleated RBC % Seg Neutrophils # Seg Neutrophils # Man Lymphocytes # (Manual) Monocytes # (Manual) Eosinophils # (Manual) Basophils # (Manual) PT INR APTT Heparin Anti-Xa Level POC ABG pH POC ABG pCO2 POC ABG pO2 Sodium 150 H Potassium 3.1 L Chloride 112.4 H Carbon Dioxide BUN 25 H Creatinine 1.4 H Glucose POC Glucose 175 H 218 H Calcium 8.0 L Phosphorus Magnesium AST Alkaline Phosphatase C-Reactive Protein Total Protein Albumin Lipase Vitamin B12 TSH Urine WBC (Auto) Urine Chloride Urine Total Protein Vancomycin Trough Crossmatch 10/22/16 10/22/16 10/22/16 04:20 04:20 10:25 WBC 20.8 H RBC 2.37 L Hgb 7.5 L Hct 23.9 L MCV 101 H RDW Plt Count Lymph % (Auto) Phillips % (Auto) Phillips # Seg Neutrophils % Seg Neuts % (Manual) 89.0 H Lymphocytes % (Manual) 7.0 L Monocytes % (Manual) Basophils % (Manual) Nucleated RBC % Seg Neutrophils # Seg Neutrophils # Man 18.5 H Lymphocytes # (Manual) Monocytes # (Manual) Eosinophils # (Manual) Basophils # (Manual) 0.2 H PT INR APTT Heparin Anti-Xa Level POC ABG pH POC ABG pCO2 POC ABG pO2 Sodium 148 H Potassium 2.9 L* Chloride 109.4 H Carbon Dioxide BUN 26 H Creatinine Glucose 140 H POC Glucose Calcium 7.5 L Phosphorus Magnesium AST Alkaline Phosphatase C-Reactive Protein Total Protein Albumin Lipase Vitamin B12 976.8 H TSH Urine WBC (Auto) Urine Chloride Urine Total Protein Vancomycin Trough Crossmatch 10/22/16 10/22/16 10/22/16 10:25 14:50 18:16 WBC RBC Hgb Hct MCV RDW Plt Count Lymph % (Auto) Phillips % (Auto) Phillips # Seg Neutrophils % Seg Neuts % (Manual) Lymphocytes % (Manual) Monocytes % (Manual) Basophils % (Manual) Nucleated RBC % Seg Neutrophils # Seg Neutrophils # Man Lymphocytes # (Manual) Monocytes # (Manual) Eosinophils # (Manual) Basophils # (Manual) PT INR APTT Heparin Anti-Xa Level POC ABG pH POC ABG pCO2 POC ABG pO2 Sodium Potassium Chloride Carbon Dioxide BUN Creatinine Glucose POC Glucose 193 H Calcium Phosphorus Magnesium AST Alkaline Phosphatase C-Reactive Protein Total Protein Albumin Lipase Vitamin B12 TSH 0.143 L 0.162 L Urine WBC (Auto) Urine Chloride Urine Total Protein Vancomycin Trough Crossmatch 10/22/16 10/22/16 10/22/16 20:00 20:00 20:00 WBC 24.1 H RBC 2.58 L Hgb 8.2 L Hct 26.4 L MCV 102 H RDW Plt Count Lymph % (Auto) Phillips % (Auto) Phillips # Seg Neutrophils % Seg Neuts % (Manual) 74.0 H Lymphocytes % (Manual) 7.0 L Monocytes % (Manual) Basophils % (Manual) Nucleated RBC % Seg Neutrophils # Seg Neutrophils # Man 17.8 H Lymphocytes # (Manual) Monocytes # (Manual) Eosinophils # (Manual) Basophils # (Manual) PT INR APTT Heparin Anti-Xa Level 1.92 H POC ABG pH POC ABG pCO2 POC ABG pO2 Sodium Potassium Chloride Carbon Dioxide BUN Creatinine Glucose POC Glucose Calcium Phosphorus Magnesium AST Alkaline Phosphatase C-Reactive Protein Total Protein Albumin Lipase Vitamin B12 TSH Urine WBC (Auto) Urine Chloride Urine Total Protein Vancomycin Trough Crossmatch See Detail 10/23/16 10/23/16 10/23/16 00:21 06:09 12:07 WBC RBC Hgb Hct MCV RDW Plt Count Lymph % (Auto) Phillips % (Auto) Phillips # Seg Neutrophils % Seg Neuts % (Manual) Lymphocytes % (Manual) Monocytes % (Manual) Basophils % (Manual) Nucleated RBC % Seg Neutrophils # Seg Neutrophils # Man Lymphocytes # (Manual) Monocytes # (Manual) Eosinophils # (Manual) Basophils # (Manual) PT INR APTT Heparin Anti-Xa Level POC ABG pH POC ABG pCO2 POC ABG pO2 Sodium Potassium Chloride Carbon Dioxide BUN Creatinine Glucose POC Glucose 283 H 241 H 340 H Calcium Phosphorus Magnesium AST Alkaline Phosphatase C-Reactive Protein Total Protein Albumin Lipase Vitamin B12 TSH Urine WBC (Auto) Urine Chloride Urine Total Protein Vancomycin Trough Crossmatch 10/23/16 10/23/16 10/23/16 14:01 16:00 17:59 WBC RBC Hgb Hct MCV RDW Plt Count Lymph % (Auto) Phillips % (Auto) Phillips # Seg Neutrophils % Seg Neuts % (Manual) Lymphocytes % (Manual) Monocytes % (Manual) Basophils % (Manual) Nucleated RBC % Seg Neutrophils # Seg Neutrophils # Man Lymphocytes # (Manual) Monocytes # (Manual) Eosinophils # (Manual) Basophils # (Manual) PT INR APTT Heparin Anti-Xa Level 0.19 L POC ABG pH POC ABG pCO2 32.4 L POC ABG pO2 Sodium Potassium Chloride Carbon Dioxide BUN Creatinine Glucose POC Glucose 245 H Calcium Phosphorus Magnesium AST Alkaline Phosphatase C-Reactive Protein Total Protein Albumin Lipase Vitamin B12 TSH Urine WBC (Auto) Urine Chloride Urine Total Protein Vancomycin Trough Crossmatch 10/23/16 10/23/16 10/23/16 22:55 Unknown Unknown WBC 22.6 H RBC 3.26 L Hgb Hct MCV RDW 17.1 H Plt Count Lymph % (Auto) Phillips % (Auto) Phillips # Seg Neutrophils % Seg Neuts % (Manual) Lymphocytes % (Manual) 11.0 L Monocytes % (Manual) Basophils % (Manual) Nucleated RBC % Seg Neutrophils # Seg Neutrophils # Man 14.0 H Lymphocytes # (Manual) Monocytes # (Manual) Eosinophils # (Manual) Basophils # (Manual) PT INR APTT Heparin Anti-Xa Level 0.17 L 0.15 L POC ABG pH POC ABG pCO2 POC ABG pO2 Sodium Potassium Chloride Carbon Dioxide BUN Creatinine Glucose POC Glucose Calcium Phosphorus Magnesium AST Alkaline Phosphatase C-Reactive Protein Total Protein Albumin Lipase Vitamin B12 TSH Urine WBC (Auto) Urine Chloride Urine Total Protein Vancomycin Trough Crossmatch 10/23/16 10/24/16 10/24/16 Unknown 00:05 05:30 WBC RBC Hgb Hct MCV RDW Plt Count Lymph % (Auto) Phillips % (Auto) Phillips # Seg Neutrophils % Seg Neuts % (Manual) Lymphocytes % (Manual) Monocytes % (Manual) Basophils % (Manual) Nucleated RBC % Seg Neutrophils # Seg Neutrophils # Man Lymphocytes # (Manual) Monocytes # (Manual) Eosinophils # (Manual) Basophils # (Manual) PT INR APTT Heparin Anti-Xa Level 0.13 L POC ABG pH POC ABG pCO2 POC ABG pO2 Sodium Potassium Chloride 111.2 H Carbon Dioxide 20 L BUN 25 H Creatinine Glucose 227 H POC Glucose 118 H Calcium 7.1 L Phosphorus Magnesium AST Alkaline Phosphatase C-Reactive Protein Total Protein Albumin Lipase Vitamin B12 TSH Urine WBC (Auto) Urine Chloride Urine Total Protein Vancomycin Trough Crossmatch 10/24/16 10/24/16 10/24/16 11:00 11:00 12:06 WBC 17.6 H RBC 2.92 L Hgb 9.2 L Hct 28.3 L MCV RDW 16.9 H Plt Count Lymph % (Auto) Phillips % (Auto) Phillips # Seg Neutrophils % Seg Neuts % (Manual) Lymphocytes % (Manual) Monocytes % (Manual) Basophils % (Manual) Nucleated RBC % Seg Neutrophils # Seg Neutrophils # Man Lymphocytes # (Manual) Monocytes # (Manual) Eosinophils # (Manual) Basophils # (Manual) PT INR APTT Heparin Anti-Xa Level 0.27 L POC ABG pH POC ABG pCO2 POC ABG pO2 Sodium Potassium Chloride Carbon Dioxide BUN Creatinine Glucose POC Glucose 166 H Calcium Phosphorus Magnesium AST Alkaline Phosphatase C-Reactive Protein Total Protein Albumin Lipase Vitamin B12 TSH Urine WBC (Auto) Urine Chloride Urine Total Protein Vancomycin Trough Crossmatch 10/24/16 10/25/16 10/25/16 12:27 00:49 03:30 WBC RBC Hgb 8.8 L Hct 28.1 L MCV RDW Plt Count Lymph % (Auto) Phillips % (Auto) Phillips # Seg Neutrophils % Seg Neuts % (Manual) Lymphocytes % (Manual) Monocytes % (Manual) Basophils % (Manual) Nucleated RBC % Seg Neutrophils # Seg Neutrophils # Man Lymphocytes # (Manual) Monocytes # (Manual) Eosinophils # (Manual) Basophils # (Manual) PT INR APTT Heparin Anti-Xa Level POC ABG pH POC ABG pCO2 33.9 L POC ABG pO2 Sodium Potassium Chloride Carbon Dioxide BUN Creatinine Glucose POC Glucose 121 H Calcium Phosphorus Magnesium AST Alkaline Phosphatase C-Reactive Protein Total Protein Albumin Lipase Vitamin B12 TSH Urine WBC (Auto) Urine Chloride Urine Total Protein Vancomycin Trough Crossmatch 10/25/16 10/25/16 10/25/16 09:49 12:10 19:25 WBC 21.1 H RBC 3.02 L Hgb 9.3 L Hct 28.9 L MCV RDW 16.3 H Plt Count Lymph % (Auto) Phillips % (Auto) Phillips # Seg Neutrophils % Seg Neuts % (Manual) 81.0 H Lymphocytes % (Manual) 9.0 L Monocytes % (Manual) Basophils % (Manual) Nucleated RBC % Seg Neutrophils # Seg Neutrophils # Man 17.1 H Lymphocytes # (Manual) Monocytes # (Manual) Eosinophils # (Manual) Basophils # (Manual) PT INR APTT Heparin Anti-Xa Level POC ABG pH POC ABG pCO2 POC ABG pO2 Sodium Potassium Chloride Carbon Dioxide BUN Creatinine Glucose POC Glucose 158 H 151 H Calcium Phosphorus Magnesium AST Alkaline Phosphatase C-Reactive Protein Total Protein Albumin Lipase Vitamin B12 TSH Urine WBC (Auto) Urine Chloride Urine Total Protein Vancomycin Trough Crossmatch 10/26/16 10/26/16 10/26/16 00:20 01:09 05:02 WBC 22.2 H RBC 2.89 L Hgb 8.7 L Hct 27.8 L MCV RDW 16.4 H Plt Count Lymph % (Auto) Phillips % (Auto) Phillips # Seg Neutrophils % Seg Neuts % (Manual) Lymphocytes % (Manual) Monocytes % (Manual) Basophils % (Manual) Nucleated RBC % Seg Neutrophils # Seg Neutrophils # Man Lymphocytes # (Manual) Monocytes # (Manual) Eosinophils # (Manual) Basophils # (Manual) PT INR APTT Heparin Anti-Xa Level POC ABG pH POC ABG pCO2 POC ABG pO2 Sodium Potassium Chloride Carbon Dioxide BUN Creatinine Glucose POC Glucose 44 L 112 H Calcium Phosphorus Magnesium AST Alkaline Phosphatase C-Reactive Protein Total Protein Albumin Lipase Vitamin B12 TSH Urine WBC (Auto) Urine Chloride Urine Total Protein Vancomycin Trough Crossmatch 10/26/16 10/26/16 10/26/16 05:02 12:11 12:14 WBC RBC Hgb Hct MCV RDW Plt Count Lymph % (Auto) Phillips % (Auto) Phillips # Seg Neutrophils % Seg Neuts % (Manual) Lymphocytes % (Manual) Monocytes % (Manual) Basophils % (Manual) Nucleated RBC % Seg Neutrophils # Seg Neutrophils # Man Lymphocytes # (Manual) Monocytes # (Manual) Eosinophils # (Manual) Basophils # (Manual) PT INR APTT Heparin Anti-Xa Level POC ABG pH POC ABG pCO2 32.0 L POC ABG pO2 33 L Sodium Potassium 3.2 L D Chloride Carbon Dioxide 20 L BUN 24 H Creatinine Glucose 104 H POC Glucose 194 H Calcium 7.7 L Phosphorus Magnesium AST Alkaline Phosphatase C-Reactive Protein Total Protein Albumin Lipase Vitamin B12 TSH Urine WBC (Auto) Urine Chloride Urine Total Protein Vancomycin Trough Crossmatch 10/26/16 10/26/16 10/27/16 15:28 17:23 00:04 WBC RBC Hgb Hct MCV RDW Plt Count Lymph % (Auto) Phillips % (Auto) Phillips # Seg Neutrophils % Seg Neuts % (Manual) Lymphocytes % (Manual) Monocytes % (Manual) Basophils % (Manual) Nucleated RBC % Seg Neutrophils # Seg Neutrophils # Man Lymphocytes # (Manual) Monocytes # (Manual) Eosinophils # (Manual) Basophils # (Manual) PT INR APTT Heparin Anti-Xa Level POC ABG pH POC ABG pCO2 33.7 L POC ABG pO2 Sodium Potassium Chloride Carbon Dioxide BUN Creatinine Glucose POC Glucose 181 H 230 H Calcium Phosphorus Magnesium AST Alkaline Phosphatase C-Reactive Protein Total Protein Albumin Lipase Vitamin B12 TSH Urine WBC (Auto) Urine Chloride Urine Total Protein Vancomycin Trough Crossmatch 10/27/16 10/27/16 10/27/16 05:15 05:15 05:38 WBC 25.5 H RBC 3.07 L Hgb 9.4 L Hct 30.1 L MCV 98 H RDW 16.4 H Plt Count 527 H Lymph % (Auto) Phillips % (Auto) Phillips # Seg Neutrophils % Seg Neuts % (Manual) Lymphocytes % (Manual) Monocytes % (Manual) Basophils % (Manual) Nucleated RBC % Seg Neutrophils # Seg Neutrophils # Man Lymphocytes # (Manual) Monocytes # (Manual) Eosinophils # (Manual) Basophils # (Manual) PT INR APTT Heparin Anti-Xa Level POC ABG pH POC ABG pCO2 POC ABG pO2 Sodium Potassium Chloride Carbon Dioxide 19 L BUN 23 H Creatinine Glucose 160 H POC Glucose 168 H Calcium 8.0 L Phosphorus Magnesium AST Alkaline Phosphatase C-Reactive Protein Total Protein Albumin Lipase Vitamin B12 TSH Urine WBC (Auto) Urine Chloride Urine Total Protein Vancomycin Trough Crossmatch 10/27/16 10/27/16 10/27/16 11:59 18:35 23:48 WBC RBC Hgb Hct MCV RDW Plt Count Lymph % (Auto) Phillips % (Auto) Phillips # Seg Neutrophils % Seg Neuts % (Manual) Lymphocytes % (Manual) Monocytes % (Manual) Basophils % (Manual) Nucleated RBC % Seg Neutrophils # Seg Neutrophils # Man Lymphocytes # (Manual) Monocytes # (Manual) Eosinophils # (Manual) Basophils # (Manual) PT INR APTT Heparin Anti-Xa Level POC ABG pH POC ABG pCO2 POC ABG pO2 Sodium Potassium Chloride Carbon Dioxide BUN Creatinine Glucose POC Glucose 197 H 318 H 316 H Calcium Phosphorus Magnesium AST Alkaline Phosphatase C-Reactive Protein Total Protein Albumin Lipase Vitamin B12 TSH Urine WBC (Auto) Urine Chloride Urine Total Protein Vancomycin Trough Crossmatch 10/28/16 10/28/16 10/28/16 03:13 04:10 04:10 WBC 18.8 H RBC 2.64 L Hgb 8.1 L Hct 26.1 L MCV 99 H RDW 16.2 H Plt Count 544 H Lymph % (Auto) Phillips % (Auto) Phillips # Seg Neutrophils % Seg Neuts % (Manual) Lymphocytes % (Manual) Monocytes % (Manual) Basophils % (Manual) Nucleated RBC % Seg Neutrophils # Seg Neutrophils # Man Lymphocytes # (Manual) Monocytes # (Manual) Eosinophils # (Manual) Basophils # (Manual) PT INR APTT Heparin Anti-Xa Level POC ABG pH POC ABG pCO2 POC ABG pO2 Sodium Potassium Chloride Carbon Dioxide 21 L BUN 24 H Creatinine Glucose 302 H POC Glucose 304 H Calcium 7.7 L Phosphorus Magnesium AST Alkaline Phosphatase C-Reactive Protein Total Protein Albumin Lipase Vitamin B12 TSH Urine WBC (Auto) Urine Chloride Urine Total Protein Vancomycin Trough Crossmatch 10/28/16 10/28/16 10/28/16 04:10 12:36 18:27 WBC RBC Hgb Hct MCV RDW Plt Count Lymph % (Auto) Phillips % (Auto) Phillips # Seg Neutrophils % Seg Neuts % (Manual) Lymphocytes % (Manual) Monocytes % (Manual) Basophils % (Manual) Nucleated RBC % Seg Neutrophils # Seg Neutrophils # Man Lymphocytes # (Manual) Monocytes # (Manual) Eosinophils # (Manual) Basophils # (Manual) PT INR APTT Heparin Anti-Xa Level 0.20 L POC ABG pH POC ABG pCO2 POC ABG pO2 Sodium Potassium Chloride Carbon Dioxide BUN Creatinine Glucose POC Glucose 205 H 339 H Calcium Phosphorus Magnesium AST Alkaline Phosphatase C-Reactive Protein Total Protein Albumin Lipase Vitamin B12 TSH Urine WBC (Auto) Urine Chloride Urine Total Protein Vancomycin Trough Crossmatch 10/29/16 10/29/16 10/29/16 01:05 06:19 09:30 WBC 20.3 H RBC 2.80 L Hgb 8.5 L Hct 26.7 L MCV RDW 15.4 H Plt Count 571 H Lymph % (Auto) Phillips % (Auto) Phillips # Seg Neutrophils % Seg Neuts % (Manual) 75.0 H Lymphocytes % (Manual) 4.0 L Monocytes % (Manual) Basophils % (Manual) Nucleated RBC % Seg Neutrophils # Seg Neutrophils # Man 15.2 H Lymphocytes # (Manual) 0.8 L Monocytes # (Manual) Eosinophils # (Manual) Basophils # (Manual) PT INR APTT Heparin Anti-Xa Level POC ABG pH POC ABG pCO2 POC ABG pO2 Sodium Potassium Chloride Carbon Dioxide BUN Creatinine Glucose POC Glucose 275 H 179 H Calcium Phosphorus Magnesium AST Alkaline Phosphatase C-Reactive Protein Total Protein Albumin Lipase Vitamin B12 TSH Urine WBC (Auto) Urine Chloride Urine Total Protein Vancomycin Trough Crossmatch 10/29/16 10/29/16 10/29/16 11:46 15:18 17:55 WBC RBC Hgb Hct MCV RDW Plt Count Lymph % (Auto) Phillips % (Auto) Phillips # Seg Neutrophils % Seg Neuts % (Manual) Lymphocytes % (Manual) Monocytes % (Manual) Basophils % (Manual) Nucleated RBC % Seg Neutrophils # Seg Neutrophils # Man Lymphocytes # (Manual) Monocytes # (Manual) Eosinophils # (Manual) Basophils # (Manual) PT INR APTT Heparin Anti-Xa Level 1.15 H POC ABG pH POC ABG pCO2 POC ABG pO2 Sodium Potassium Chloride Carbon Dioxide BUN Creatinine Glucose POC Glucose 122 H 255 H Calcium Phosphorus Magnesium AST Alkaline Phosphatase C-Reactive Protein Total Protein Albumin Lipase Vitamin B12 TSH Urine WBC (Auto) Urine Chloride Urine Total Protein Vancomycin Trough Crossmatch 10/30/16 10/30/16 10/30/16 00:10 05:30 05:30 WBC 19.8 H RBC 2.51 L Hgb 7.7 L Hct 24.1 L MCV RDW 15.5 H Plt Count 534 H Lymph % (Auto) Phillips % (Auto) Phillips # Seg Neutrophils % Seg Neuts % (Manual) Lymphocytes % (Manual) Monocytes % (Manual) Basophils % (Manual) Nucleated RBC % Seg Neutrophils # Seg Neutrophils # Man Lymphocytes # (Manual) Monocytes # (Manual) Eosinophils # (Manual) Basophils # (Manual) PT INR APTT Heparin Anti-Xa Level POC ABG pH POC ABG pCO2 POC ABG pO2 Sodium Potassium Chloride Carbon Dioxide BUN Creatinine Glucose 211 H POC Glucose 202 H Calcium 7.4 L Phosphorus Magnesium AST Alkaline Phosphatase C-Reactive Protein Total Protein Albumin Lipase Vitamin B12 TSH Urine WBC (Auto) Urine Chloride Urine Total Protein Vancomycin Trough Crossmatch 10/30/16 10/30/16 10/30/16 06:32 12:51 17:47 WBC RBC Hgb Hct MCV RDW Plt Count Lymph % (Auto) Phillips % (Auto) Phillips # Seg Neutrophils % Seg Neuts % (Manual) Lymphocytes % (Manual) Monocytes % (Manual) Basophils % (Manual) Nucleated RBC % Seg Neutrophils # Seg Neutrophils # Man Lymphocytes # (Manual) Monocytes # (Manual) Eosinophils # (Manual) Basophils # (Manual) PT INR APTT Heparin Anti-Xa Level POC ABG pH POC ABG pCO2 POC ABG pO2 Sodium Potassium Chloride Carbon Dioxide BUN Creatinine Glucose POC Glucose 207 H 218 H 169 H Calcium Phosphorus Magnesium AST Alkaline Phosphatase C-Reactive Protein Total Protein Albumin Lipase Vitamin B12 TSH Urine WBC (Auto) Urine Chloride Urine Total Protein Vancomycin Trough Crossmatch 10/30/16 10/31/16 10/31/16 23:59 05:25 11:21 WBC RBC Hgb Hct MCV RDW Plt Count Lymph % (Auto) Phillips % (Auto) Phillips # Seg Neutrophils % Seg Neuts % (Manual) Lymphocytes % (Manual) Monocytes % (Manual) Basophils % (Manual) Nucleated RBC % Seg Neutrophils # Seg Neutrophils # Man Lymphocytes # (Manual) Monocytes # (Manual) Eosinophils # (Manual) Basophils # (Manual) PT INR APTT Heparin Anti-Xa Level POC ABG pH POC ABG pCO2 POC ABG pO2 Sodium Potassium Chloride Carbon Dioxide BUN Creatinine Glucose POC Glucose 138 H 127 H 132 H Calcium Phosphorus Magnesium AST Alkaline Phosphatase C-Reactive Protein Total Protein Albumin Lipase Vitamin B12 TSH Urine WBC (Auto) Urine Chloride Urine Total Protein Vancomycin Trough Crossmatch 10/31/16 10/31/16 11/01/16 17:07 23:54 05:47 WBC RBC Hgb Hct MCV RDW Plt Count Lymph % (Auto) Phillips % (Auto) Phillips # Seg Neutrophils % Seg Neuts % (Manual) Lymphocytes % (Manual) Monocytes % (Manual) Basophils % (Manual) Nucleated RBC % Seg Neutrophils # Seg Neutrophils # Man Lymphocytes # (Manual) Monocytes # (Manual) Eosinophils # (Manual) Basophils # (Manual) PT INR APTT Heparin Anti-Xa Level POC ABG pH POC ABG pCO2 POC ABG pO2 Sodium Potassium Chloride Carbon Dioxide BUN Creatinine Glucose POC Glucose 138 H 153 H 150 H Calcium Phosphorus Magnesium AST Alkaline Phosphatase C-Reactive Protein Total Protein Albumin Lipase Vitamin B12 TSH Urine WBC (Auto) Urine Chloride Urine Total Protein Vancomycin Trough Crossmatch 11/01/16 11/01/16 11/01/16 06:33 06:33 12:16 WBC 19.2 H RBC 2.51 L Hgb 7.9 L Hct 24.8 L MCV 99 H D RDW 16.1 H Plt Count 569 H Lymph % (Auto) Phillips % (Auto) Phillips # Seg Neutrophils % Seg Neuts % (Manual) Lymphocytes % (Manual) Monocytes % (Manual) Basophils % (Manual) Nucleated RBC % Seg Neutrophils # Seg Neutrophils # Man Lymphocytes # (Manual) Monocytes # (Manual) Eosinophils # (Manual) Basophils # (Manual) PT INR APTT Heparin Anti-Xa Level POC ABG pH POC ABG pCO2 POC ABG pO2 Sodium Potassium 3.5 L Chloride Carbon Dioxide 21 L BUN Creatinine Glucose 137 H POC Glucose 125 H Calcium 7.7 L Phosphorus Magnesium AST Alkaline Phosphatase 148 H C-Reactive Protein Total Protein 6.2 L Albumin 2.0 L Lipase Vitamin B12 TSH Urine WBC (Auto) Urine Chloride Urine Total Protein Vancomycin Trough Crossmatch 11/01/16 11/02/16 11/02/16 17:37 00:05 04:15 WBC RBC Hgb Hct MCV RDW Plt Count Lymph % (Auto) Phillips % (Auto) Phillips # Seg Neutrophils % Seg Neuts % (Manual) Lymphocytes % (Manual) Monocytes % (Manual) Basophils % (Manual) Nucleated RBC % Seg Neutrophils # Seg Neutrophils # Man Lymphocytes # (Manual) Monocytes # (Manual) Eosinophils # (Manual) Basophils # (Manual) PT INR APTT Heparin Anti-Xa Level < 0.10 L POC ABG pH POC ABG pCO2 POC ABG pO2 Sodium Potassium 3.2 L Chloride Carbon Dioxide BUN 6 L Creatinine Glucose 135 H POC Glucose 164 H Calcium 7.5 L Phosphorus Magnesium AST Alkaline Phosphatase 132 H C-Reactive Protein Total Protein 6.2 L Albumin 1.8 L Lipase Vitamin B12 TSH Urine WBC (Auto) Urine Chloride Urine Total Protein Vancomycin Trough Crossmatch 11/02/16 11/02/16 11/02/16 04:15 05:54 12:15 WBC 17.7 H RBC 2.43 L Hgb 7.6 L Hct 23.5 L MCV RDW 15.9 H Plt Count 502 H Lymph % (Auto) Phillips % (Auto) Phillips # Seg Neutrophils % Seg Neuts % (Manual) 84.0 H Lymphocytes % (Manual) 11.0 L Monocytes % (Manual) Basophils % (Manual) Nucleated RBC % 1.0 H Seg Neutrophils # Seg Neutrophils # Man 14.9 H Lymphocytes # (Manual) Monocytes # (Manual) Eosinophils # (Manual) Basophils # (Manual) PT INR APTT Heparin Anti-Xa Level POC ABG pH POC ABG pCO2 POC ABG pO2 Sodium Potassium Chloride Carbon Dioxide BUN Creatinine Glucose POC Glucose 152 H 137 H Calcium Phosphorus Magnesium AST Alkaline Phosphatase C-Reactive Protein Total Protein Albumin Lipase Vitamin B12 TSH Urine WBC (Auto) Urine Chloride Urine Total Protein Vancomycin Trough Crossmatch 11/02/16 11/03/16 11/03/16 17:00 00:05 00:05 WBC RBC Hgb Hct MCV RDW Plt Count Lymph % (Auto) Phillips % (Auto) Phillips # Seg Neutrophils % Seg Neuts % (Manual) Lymphocytes % (Manual) Monocytes % (Manual) Basophils % (Manual) Nucleated RBC % Seg Neutrophils # Seg Neutrophils # Man Lymphocytes # (Manual) Monocytes # (Manual) Eosinophils # (Manual) Basophils # (Manual) PT INR APTT Heparin Anti-Xa Level POC ABG pH POC ABG pCO2 POC ABG pO2 Sodium Potassium Chloride Carbon Dioxide 20 L BUN 5 L Creatinine Glucose 139 H POC Glucose 161 H Calcium 6.7 L Phosphorus Magnesium 1.2 L AST Alkaline Phosphatase C-Reactive Protein Total Protein Albumin Lipase Vitamin B12 TSH Urine WBC (Auto) Urine Chloride Urine Total Protein Vancomycin Trough Crossmatch 11/03/16 11/03/16 11/03/16 00:05 02:05 04:23 WBC 15.9 H 14.0 H RBC 1.93 L 2.38 L Hgb 5.9 L* 7.3 L Hct 18.9 L* 23.1 L MCV 98 H RDW 15.9 H 15.9 H Plt Count Lymph % (Auto) Phillips % (Auto) Phillips # Seg Neutrophils % Seg Neuts % (Manual) 85.0 H Lymphocytes % (Manual) 4.0 L Monocytes % (Manual) Basophils % (Manual) Nucleated RBC % Seg Neutrophils # Seg Neutrophils # Man 13.5 H Lymphocytes # (Manual) 0.6 L Monocytes # (Manual) Eosinophils # (Manual) Basophils # (Manual) PT INR APTT Heparin Anti-Xa Level POC ABG pH POC ABG pCO2 POC ABG pO2 Sodium Potassium Chloride Carbon Dioxide BUN 5 L Creatinine Glucose 127 H POC Glucose Calcium 7.2 L Phosphorus Magnesium AST Alkaline Phosphatase C-Reactive Protein Total Protein 5.8 L Albumin 1.5 L Lipase Vitamin B12 TSH Urine WBC (Auto) Urine Chloride Urine Total Protein Vancomycin Trough Crossmatch 11/03/16 11/03/16 11/03/16 09:14 09:27 11:54 WBC RBC Hgb Hct MCV RDW Plt Count Lymph % (Auto) Phillips % (Auto) Phillips # Seg Neutrophils % Seg Neuts % (Manual) Lymphocytes % (Manual) Monocytes % (Manual) Basophils % (Manual) Nucleated RBC % Seg Neutrophils # Seg Neutrophils # Man Lymphocytes # (Manual) Monocytes # (Manual) Eosinophils # (Manual) Basophils # (Manual) PT INR APTT Heparin Anti-Xa Level 0.11 L POC ABG pH POC ABG pCO2 POC ABG pO2 Sodium Potassium Chloride Carbon Dioxide BUN 5 L Creatinine Glucose 111 H POC Glucose 139 H Calcium 6.7 L Phosphorus Magnesium AST Alkaline Phosphatase C-Reactive Protein Total Protein Albumin Lipase Vitamin B12 TSH Urine WBC (Auto) Urine Chloride Urine Total Protein Vancomycin Trough Crossmatch 11/03/16 11/03/16 11/03/16 16:26 18:01 18:01 WBC RBC Hgb Hct MCV RDW Plt Count Lymph % (Auto) Phillips % (Auto) Phillips # Seg Neutrophils % Seg Neuts % (Manual) Lymphocytes % (Manual) Monocytes % (Manual) Basophils % (Manual) Nucleated RBC % Seg Neutrophils # Seg Neutrophils # Man Lymphocytes # (Manual) Monocytes # (Manual) Eosinophils # (Manual) Basophils # (Manual) PT INR APTT Heparin Anti-Xa Level 2.00 H POC ABG pH POC ABG pCO2 POC ABG pO2 Sodium Potassium Chloride Carbon Dioxide BUN Creatinine Glucose POC Glucose 142 H Calcium Phosphorus Magnesium AST Alkaline Phosphatase C-Reactive Protein Total Protein Albumin Lipase Vitamin B12 TSH Urine WBC (Auto) Urine Chloride Urine Total Protein Vancomycin Trough Crossmatch See Detail 11/04/16 11/04/16 11/04/16 02:15 02:15 06:35 WBC 11.8 H RBC 2.39 L Hgb 7.4 L Hct 23.1 L MCV RDW 15.9 H Plt Count Lymph % (Auto) Phillips % (Auto) Phillips # Seg Neutrophils % Seg Neuts % (Manual) 76.0 H Lymphocytes % (Manual) 12.0 L Monocytes % (Manual) 9.0 H Basophils % (Manual) Nucleated RBC % Seg Neutrophils # Seg Neutrophils # Man 9.0 H Lymphocytes # (Manual) Monocytes # (Manual) 1.1 H Eosinophils # (Manual) Basophils # (Manual) PT INR APTT Heparin Anti-Xa Level < 0.10 L POC ABG pH POC ABG pCO2 POC ABG pO2 Sodium Potassium Chloride Carbon Dioxide 21 L BUN 5 L Creatinine Glucose 112 H POC Glucose Calcium 6.8 L Phosphorus Magnesium AST Alkaline Phosphatase C-Reactive Protein Total Protein 5.7 L Albumin 1.7 L Lipase Vitamin B12 TSH Urine WBC (Auto) Urine Chloride Urine Total Protein Vancomycin Trough Crossmatch 11/04/16 11/04/16 11/04/16 10:51 12:58 15:04 WBC RBC Hgb Hct MCV RDW Plt Count Lymph % (Auto) Phillips % (Auto) Phillips # Seg Neutrophils % Seg Neuts % (Manual) Lymphocytes % (Manual) Monocytes % (Manual) Basophils % (Manual) Nucleated RBC % Seg Neutrophils # Seg Neutrophils # Man Lymphocytes # (Manual) Monocytes # (Manual) Eosinophils # (Manual) Basophils # (Manual) PT INR APTT Heparin Anti-Xa Level 1.05 H POC ABG pH POC ABG pCO2 33.7 L POC ABG pO2 60 L Sodium Potassium Chloride Carbon Dioxide BUN Creatinine Glucose POC Glucose 118 H Calcium Phosphorus Magnesium AST Alkaline Phosphatase C-Reactive Protein Total Protein Albumin Lipase Vitamin B12 TSH Urine WBC (Auto) Urine Chloride Urine Total Protein Vancomycin Trough Crossmatch 11/04/16 11/04/16 11/05/16 17:20 20:31 02:30 WBC RBC Hgb Hct MCV RDW Plt Count Lymph % (Auto) Phillips % (Auto) Phillips # Seg Neutrophils % Seg Neuts % (Manual) Lymphocytes % (Manual) Monocytes % (Manual) Basophils % (Manual) Nucleated RBC % Seg Neutrophils # Seg Neutrophils # Man Lymphocytes # (Manual) Monocytes # (Manual) Eosinophils # (Manual) Basophils # (Manual) PT INR APTT Heparin Anti-Xa Level POC ABG pH POC ABG pCO2 POC ABG pO2 Sodium Potassium 3.5 L Chloride Carbon Dioxide 18 L BUN 5 L Creatinine 0.6 L Glucose 110 H POC Glucose 228 H 169 H Calcium 7.1 L Phosphorus Magnesium AST Alkaline Phosphatase C-Reactive Protein Total Protein Albumin 1.9 L Lipase Vitamin B12 TSH Urine WBC (Auto) Urine Chloride Urine Total Protein Vancomycin Trough Crossmatch 11/05/16 11/05/16 11/05/16 02:30 17:52 21:07 WBC 14.1 H RBC Hgb Hct MCV RDW 16.7 H Plt Count Lymph % (Auto) Phillips % (Auto) Phillips # Seg Neutrophils % Seg Neuts % (Manual) 80.0 H Lymphocytes % (Manual) 6.0 L Monocytes % (Manual) 8.0 H Basophils % (Manual) Nucleated RBC % Seg Neutrophils # Seg Neutrophils # Man 11.3 H Lymphocytes # (Manual) 0.8 L Monocytes # (Manual) 1.1 H Eosinophils # (Manual) Basophils # (Manual) PT INR APTT Heparin Anti-Xa Level < 0.10 L POC ABG pH POC ABG pCO2 POC ABG pO2 Sodium Potassium Chloride Carbon Dioxide BUN Creatinine Glucose POC Glucose 174 H Calcium Phosphorus Magnesium AST Alkaline Phosphatase C-Reactive Protein Total Protein Albumin Lipase Vitamin B12 TSH Urine WBC (Auto) Urine Chloride Urine Total Protein Vancomycin Trough Crossmatch 11/05/16 11/06/16 11/06/16 23:30 05:00 05:00 WBC 15.2 H RBC 3.29 L Hgb 10.0 L Hct MCV RDW 16.9 H Plt Count Lymph % (Auto) Phillips % (Auto) Phillips # Seg Neutrophils % Seg Neuts % (Manual) Lymphocytes % (Manual) Monocytes % (Manual) Basophils % (Manual) Nucleated RBC % Seg Neutrophils # Seg Neutrophils # Man Lymphocytes # (Manual) Monocytes # (Manual) Eosinophils # (Manual) Basophils # (Manual) PT INR APTT Heparin Anti-Xa Level 0.94 H POC ABG pH POC ABG pCO2 POC ABG pO2 Sodium Potassium Chloride Carbon Dioxide BUN Creatinine Glucose POC Glucose 131 H Calcium Phosphorus Magnesium AST Alkaline Phosphatase C-Reactive Protein Total Protein Albumin Lipase Vitamin B12 TSH Urine WBC (Auto) Urine Chloride Urine Total Protein Vancomycin Trough Crossmatch 11/06/16 11/06/16 11/06/16 05:00 11:45 18:23 WBC RBC Hgb Hct MCV RDW Plt Count Lymph % (Auto) Phillips % (Auto) Phillips # Seg Neutrophils % Seg Neuts % (Manual) Lymphocytes % (Manual) Monocytes % (Manual) Basophils % (Manual) Nucleated RBC % Seg Neutrophils # Seg Neutrophils # Man Lymphocytes # (Manual) Monocytes # (Manual) Eosinophils # (Manual) Basophils # (Manual) PT INR APTT Heparin Anti-Xa Level POC ABG pH POC ABG pCO2 POC ABG pO2 Sodium Potassium 3.5 L Chloride 107.1 H Carbon Dioxide 20 L BUN 4 L Creatinine 0.6 L Glucose 104 H POC Glucose 141 H 255 H Calcium 6.7 L Phosphorus Magnesium AST Alkaline Phosphatase C-Reactive Protein Total Protein Albumin Lipase Vitamin B12 TSH Urine WBC (Auto) Urine Chloride Urine Total Protein Vancomycin Trough Crossmatch 11/06/16 11/06/16 11/07/16 22:07 23:07 11:41 WBC RBC Hgb Hct MCV RDW Plt Count Lymph % (Auto) Phillips % (Auto) Phillips # Seg Neutrophils % Seg Neuts % (Manual) Lymphocytes % (Manual) Monocytes % (Manual) Basophils % (Manual) Nucleated RBC % Seg Neutrophils # Seg Neutrophils # Man Lymphocytes # (Manual) Monocytes # (Manual) Eosinophils # (Manual) Basophils # (Manual) PT INR APTT Heparin Anti-Xa Level 0.80 H POC ABG pH POC ABG pCO2 POC ABG pO2 Sodium Potassium Chloride Carbon Dioxide BUN Creatinine Glucose POC Glucose 183 H 132 H Calcium Phosphorus Magnesium AST Alkaline Phosphatase C-Reactive Protein Total Protein Albumin Lipase Vitamin B12 TSH Urine WBC (Auto) Urine Chloride Urine Total Protein Vancomycin Trough Crossmatch 11/07/16 11/07/16 11/07/16 12:17 17:05 17:58 WBC RBC Hgb Hct MCV RDW Plt Count Lymph % (Auto) Phillips % (Auto) Phillips # Seg Neutrophils % Seg Neuts % (Manual) Lymphocytes % (Manual) Monocytes % (Manual) Basophils % (Manual) Nucleated RBC % Seg Neutrophils # Seg Neutrophils # Man Lymphocytes # (Manual) Monocytes # (Manual) Eosinophils # (Manual) Basophils # (Manual) PT INR APTT Heparin Anti-Xa Level 0.87 H POC ABG pH 7.324 L POC ABG pCO2 POC ABG pO2 Sodium Potassium Chloride Carbon Dioxide BUN Creatinine Glucose POC Glucose 158 H Calcium Phosphorus Magnesium AST Alkaline Phosphatase C-Reactive Protein Total Protein Albumin Lipase Vitamin B12 TSH Urine WBC (Auto) Urine Chloride Urine Total Protein Vancomycin Trough Crossmatch 11/07/16 11/07/16 11/07/16 23:26 Unknown Unknown WBC 12.3 H RBC 2.96 L Hgb 9.1 L Hct 27.9 L MCV RDW 16.8 H Plt Count Lymph % (Auto) Phillips % (Auto) Phillips # Seg Neutrophils % Seg Neuts % (Manual) 80.0 H Lymphocytes % (Manual) 7.0 L Monocytes % (Manual) Basophils % (Manual) Nucleated RBC % Seg Neutrophils # Seg Neutrophils # Man 9.8 H Lymphocytes # (Manual) 0.9 L Monocytes # (Manual) Eosinophils # (Manual) Basophils # (Manual) PT INR APTT Heparin Anti-Xa Level POC ABG pH POC ABG pCO2 POC ABG pO2 Sodium Potassium Chloride Carbon Dioxide 19 L BUN Creatinine Glucose 106 H POC Glucose 130 H Calcium 6.9 L Phosphorus Magnesium AST Alkaline Phosphatase C-Reactive Protein Total Protein Albumin Lipase Vitamin B12 TSH Urine WBC (Auto) Urine Chloride Urine Total Protein Vancomycin Trough Crossmatch 11/07/16 11/08/16 11/08/16 Unknown 05:14 05:20 WBC 12.4 H RBC 3.04 L Hgb 9.2 L Hct 28.8 L MCV RDW 16.6 H Plt Count Lymph % (Auto) Phillips % (Auto) Phillips # Seg Neutrophils % Seg Neuts % (Manual) 77.0 H Lymphocytes % (Manual) 5.0 L Monocytes % (Manual) Basophils % (Manual) 2.0 H Nucleated RBC % Seg Neutrophils # Seg Neutrophils # Man 9.5 H Lymphocytes # (Manual) 0.6 L Monocytes # (Manual) Eosinophils # (Manual) Basophils # (Manual) 0.2 H PT INR APTT Heparin Anti-Xa Level 0.90 H POC ABG pH POC ABG pCO2 POC ABG pO2 Sodium Potassium Chloride Carbon Dioxide BUN Creatinine Glucose POC Glucose 204 H Calcium Phosphorus Magnesium AST Alkaline Phosphatase C-Reactive Protein Total Protein Albumin Lipase Vitamin B12 TSH Urine WBC (Auto) Urine Chloride Urine Total Protein Vancomycin Trough Crossmatch 11/08/16 11/08/16 11/08/16 05:20 12:10 13:10 WBC RBC Hgb Hct MCV RDW Plt Count Lymph % (Auto) Phillips % (Auto) Phillips # Seg Neutrophils % Seg Neuts % (Manual) Lymphocytes % (Manual) Monocytes % (Manual) Basophils % (Manual) Nucleated RBC % Seg Neutrophils # Seg Neutrophils # Man Lymphocytes # (Manual) Monocytes # (Manual) Eosinophils # (Manual) Basophils # (Manual) PT INR APTT Heparin Anti-Xa Level POC ABG pH POC ABG pCO2 33.7 L POC ABG pO2 Sodium 136 L Potassium Chloride Carbon Dioxide 19 L BUN Creatinine Glucose 192 H POC Glucose 180 H Calcium 7.1 L Phosphorus Magnesium AST Alkaline Phosphatase C-Reactive Protein Total Protein Albumin Lipase Vitamin B12 TSH Urine WBC (Auto) Urine Chloride Urine Total Protein Vancomycin Trough Crossmatch 11/08/16 11/08/16 11/08/16 17:26 20:45 23:34 WBC RBC Hgb Hct MCV RDW Plt Count Lymph % (Auto) Phillips % (Auto) Phillips # Seg Neutrophils % Seg Neuts % (Manual) Lymphocytes % (Manual) Monocytes % (Manual) Basophils % (Manual) Nucleated RBC % Seg Neutrophils # Seg Neutrophils # Man Lymphocytes # (Manual) Monocytes # (Manual) Eosinophils # (Manual) Basophils # (Manual) PT INR APTT Heparin Anti-Xa Level POC ABG pH POC ABG pCO2 POC ABG pO2 Sodium Potassium Chloride Carbon Dioxide BUN Creatinine Glucose POC Glucose 187 H 178 H Calcium Phosphorus Magnesium AST Alkaline Phosphatase C-Reactive Protein Total Protein Albumin Lipase Vitamin B12 TSH Urine WBC (Auto) Urine Chloride Urine Total Protein Vancomycin Trough 35.4 H Crossmatch 11/09/16 11/09/16 11/09/16 05:30 05:30 05:59 WBC 11.5 H RBC 2.96 L Hgb 9.2 L Hct 28.2 L MCV RDW 16.4 H Plt Count Lymph % (Auto) Phillips % (Auto) Phillips # Seg Neutrophils % Seg Neuts % (Manual) 76.0 H Lymphocytes % (Manual) 2.0 L Monocytes % (Manual) Basophils % (Manual) Nucleated RBC % Seg Neutrophils # Seg Neutrophils # Man 8.7 H Lymphocytes # (Manual) 0.2 L Monocytes # (Manual) Eosinophils # (Manual) Basophils # (Manual) PT INR APTT Heparin Anti-Xa Level POC ABG pH POC ABG pCO2 POC ABG pO2 Sodium Potassium 3.4 L Chloride 107.6 H Carbon Dioxide 19 L BUN Creatinine 0.6 L Glucose 207 H POC Glucose 263 H Calcium 7.3 L Phosphorus Magnesium AST Alkaline Phosphatase C-Reactive Protein Total Protein Albumin Lipase Vitamin B12 TSH Urine WBC (Auto) Urine Chloride Urine Total Protein Vancomycin Trough Crossmatch 11/09/16 11/09/16 11/09/16 11:49 15:24 18:04 WBC RBC Hgb Hct MCV RDW Plt Count Lymph % (Auto) Phillips % (Auto) Phillips # Seg Neutrophils % Seg Neuts % (Manual) Lymphocytes % (Manual) Monocytes % (Manual) Basophils % (Manual) Nucleated RBC % Seg Neutrophils # Seg Neutrophils # Man Lymphocytes # (Manual) Monocytes # (Manual) Eosinophils # (Manual) Basophils # (Manual) PT INR APTT Heparin Anti-Xa Level POC ABG pH POC ABG pCO2 33.8 L POC ABG pO2 131 H Sodium Potassium Chloride Carbon Dioxide BUN Creatinine Glucose POC Glucose 269 H 242 H Calcium Phosphorus Magnesium AST Alkaline Phosphatase C-Reactive Protein Total Protein Albumin Lipase Vitamin B12 TSH Urine WBC (Auto) Urine Chloride Urine Total Protein Vancomycin Trough Crossmatch 11/09/16 11/10/16 11/10/16 22:57 04:30 04:30 WBC 15.7 H RBC 3.17 L Hgb 9.7 L Hct 30.2 L MCV RDW 16.2 H Plt Count Lymph % (Auto) Phillips % (Auto) Phillips # Seg Neutrophils % Seg Neuts % (Manual) Lymphocytes % (Manual) Monocytes % (Manual) Basophils % (Manual) Nucleated RBC % Seg Neutrophils # Seg Neutrophils # Man 8.5 H Lymphocytes # (Manual) Monocytes # (Manual) Eosinophils # (Manual) 0.5 H Basophils # (Manual) PT INR APTT Heparin Anti-Xa Level POC ABG pH POC ABG pCO2 POC ABG pO2 Sodium Potassium Chloride Carbon Dioxide 19 L BUN Creatinine 0.6 L Glucose 199 H POC Glucose 239 H Calcium 7.8 L Phosphorus Magnesium AST Alkaline Phosphatase C-Reactive Protein Total Protein Albumin Lipase Vitamin B12 TSH Urine WBC (Auto) Urine Chloride Urine Total Protein Vancomycin Trough Crossmatch 11/10/16 11/10/16 11/10/16 04:30 11:32 16:00 WBC RBC Hgb Hct MCV RDW Plt Count Lymph % (Auto) Phillips % (Auto) Phillips # Seg Neutrophils % Seg Neuts % (Manual) Lymphocytes % (Manual) Monocytes % (Manual) Basophils % (Manual) Nucleated RBC % Seg Neutrophils # Seg Neutrophils # Man Lymphocytes # (Manual) Monocytes # (Manual) Eosinophils # (Manual) Basophils # (Manual) PT INR APTT Heparin Anti-Xa Level 1.09 H < 0.10 L POC ABG pH POC ABG pCO2 POC ABG pO2 Sodium Potassium Chloride Carbon Dioxide BUN Creatinine Glucose POC Glucose 211 H Calcium Phosphorus Magnesium AST Alkaline Phosphatase C-Reactive Protein Total Protein Albumin Lipase Vitamin B12 TSH Urine WBC (Auto) Urine Chloride Urine Total Protein Vancomycin Trough Crossmatch 11/10/16 11/10/16 11/10/16 17:39 18:00 23:06 WBC RBC Hgb Hct MCV RDW Plt Count Lymph % (Auto) Phillips % (Auto) Phillips # Seg Neutrophils % Seg Neuts % (Manual) Lymphocytes % (Manual) Monocytes % (Manual) Basophils % (Manual) Nucleated RBC % Seg Neutrophils # Seg Neutrophils # Man Lymphocytes # (Manual) Monocytes # (Manual) Eosinophils # (Manual) Basophils # (Manual) PT INR APTT Heparin Anti-Xa Level 0.85 H POC ABG pH POC ABG pCO2 POC ABG pO2 Sodium Potassium Chloride Carbon Dioxide BUN Creatinine Glucose POC Glucose 249 H 220 H Calcium Phosphorus Magnesium AST Alkaline Phosphatase C-Reactive Protein Total Protein Albumin Lipase Vitamin B12 TSH Urine WBC (Auto) Urine Chloride Urine Total Protein Vancomycin Trough Crossmatch 11/11/16 11/11/16 11/11/16 05:56 06:15 06:15 WBC 13.3 H RBC 2.87 L Hgb 8.7 L Hct 27.2 L MCV RDW 16.4 H Plt Count Lymph % (Auto) Phillips % (Auto) Phillips # 0.9 H Seg Neutrophils % 78.9 H Seg Neuts % (Manual) Lymphocytes % (Manual) Monocytes % (Manual) Basophils % (Manual) Nucleated RBC % Seg Neutrophils # 10.5 H Seg Neutrophils # Man Lymphocytes # (Manual) Monocytes # (Manual) Eosinophils # (Manual) Basophils # (Manual) PT INR APTT Heparin Anti-Xa Level POC ABG pH POC ABG pCO2 POC ABG pO2 Sodium Potassium 3.2 L Chloride Carbon Dioxide 19 L BUN Creatinine Glucose POC Glucose 117 H Calcium 7.6 L Phosphorus Magnesium AST Alkaline Phosphatase C-Reactive Protein Total Protein Albumin Lipase Vitamin B12 TSH Urine WBC (Auto) Urine Chloride Urine Total Protein Vancomycin Trough Crossmatch 11/11/16 11/11/16 11/11/16 12:26 16:58 17:33 WBC RBC Hgb Hct MCV RDW Plt Count Lymph % (Auto) Phillips % (Auto) Phillips # Seg Neutrophils % Seg Neuts % (Manual) Lymphocytes % (Manual) Monocytes % (Manual) Basophils % (Manual) Nucleated RBC % Seg Neutrophils # Seg Neutrophils # Man Lymphocytes # (Manual) Monocytes # (Manual) Eosinophils # (Manual) Basophils # (Manual) PT INR APTT Heparin Anti-Xa Level < 0.10 L POC ABG pH POC ABG pCO2 POC ABG pO2 Sodium Potassium Chloride Carbon Dioxide BUN Creatinine Glucose POC Glucose 114 H 161 H Calcium Phosphorus Magnesium AST Alkaline Phosphatase C-Reactive Protein Total Protein Albumin Lipase Vitamin B12 TSH Urine WBC (Auto) Urine Chloride Urine Total Protein Vancomycin Trough Crossmatch 11/12/16 11/12/16 11/12/16 05:00 05:00 05:00 WBC 12.8 H RBC 2.75 L Hgb 8.4 L Hct 25.7 L MCV RDW 16.3 H Plt Count Lymph % (Auto) Phillips % (Auto) 7.5 H Phillips # 1.0 H Seg Neutrophils % 78.0 H Seg Neuts % (Manual) Lymphocytes % (Manual) Monocytes % (Manual) Basophils % (Manual) Nucleated RBC % Seg Neutrophils # 10.0 H Seg Neutrophils # Man Lymphocytes # (Manual) Monocytes # (Manual) Eosinophils # (Manual) Basophils # (Manual) PT INR APTT Heparin Anti-Xa Level 0.87 H POC ABG pH POC ABG pCO2 POC ABG pO2 Sodium Potassium 3.4 L Chloride Carbon Dioxide 19 L BUN Creatinine Glucose 112 H POC Glucose Calcium 7.7 L Phosphorus Magnesium AST Alkaline Phosphatase C-Reactive Protein Total Protein Albumin Lipase Vitamin B12 TSH Urine WBC (Auto) Urine Chloride Urine Total Protein Vancomycin Trough Crossmatch 11/12/16 11/12/16 11/13/16 11:18 16:40 00:44 WBC RBC Hgb Hct MCV RDW Plt Count Lymph % (Auto) Phillips % (Auto) Phillips # Seg Neutrophils % Seg Neuts % (Manual) Lymphocytes % (Manual) Monocytes % (Manual) Basophils % (Manual) Nucleated RBC % Seg Neutrophils # Seg Neutrophils # Man Lymphocytes # (Manual) Monocytes # (Manual) Eosinophils # (Manual) Basophils # (Manual) PT INR APTT Heparin Anti-Xa Level POC ABG pH POC ABG pCO2 POC ABG pO2 Sodium Potassium Chloride Carbon Dioxide BUN Creatinine Glucose POC Glucose 135 H 139 H 169 H Calcium Phosphorus Magnesium AST Alkaline Phosphatase C-Reactive Protein Total Protein Albumin Lipase Vitamin B12 TSH Urine WBC (Auto) Urine Chloride Urine Total Protein Vancomycin Trough Crossmatch 11/13/16 11/13/16 11/13/16 05:28 05:28 06:02 WBC 12.7 H RBC 2.93 L Hgb 9.0 L Hct 27.6 L MCV RDW 16.1 H Plt Count Lymph % (Auto) Phillips % (Auto) Phillips # Seg Neutrophils % 78.6 H Seg Neuts % (Manual) Lymphocytes % (Manual) Monocytes % (Manual) Basophils % (Manual) Nucleated RBC % Seg Neutrophils # 10.0 H Seg Neutrophils # Man Lymphocytes # (Manual) Monocytes # (Manual) Eosinophils # (Manual) Basophils # (Manual) PT INR APTT Heparin Anti-Xa Level POC ABG pH POC ABG pCO2 POC ABG pO2 Sodium Potassium Chloride Carbon Dioxide 17 L BUN Creatinine Glucose 116 H POC Glucose 112 H Calcium 7.8 L Phosphorus Magnesium AST Alkaline Phosphatase C-Reactive Protein Total Protein Albumin Lipase Vitamin B12 TSH Urine WBC (Auto) Urine Chloride Urine Total Protein Vancomycin Trough Crossmatch 11/13/16 11/13/16 11/13/16 12:34 16:55 17:00 WBC RBC Hgb Hct MCV RDW Plt Count Lymph % (Auto) Phillips % (Auto) Phillips # Seg Neutrophils % Seg Neuts % (Manual) Lymphocytes % (Manual) Monocytes % (Manual) Basophils % (Manual) Nucleated RBC % Seg Neutrophils # Seg Neutrophils # Man Lymphocytes # (Manual) Monocytes # (Manual) Eosinophils # (Manual) Basophils # (Manual) PT INR APTT Heparin Anti-Xa Level POC ABG pH POC ABG pCO2 22.9 L POC ABG pO2 53 L Sodium Potassium Chloride Carbon Dioxide BUN Creatinine Glucose POC Glucose 109 H 122 H Calcium Phosphorus Magnesium AST Alkaline Phosphatase C-Reactive Protein Total Protein Albumin Lipase Vitamin B12 TSH Urine WBC (Auto) Urine Chloride Urine Total Protein Vancomycin Trough Crossmatch 11/13/16 11/14/16 11/14/16 23:33 04:42 04:42 WBC 11.7 H RBC 3.01 L Hgb 9.3 L Hct 28.9 L MCV RDW 16.5 H Plt Count Lymph % (Auto) Phillips % (Auto) Phillips # Seg Neutrophils % Seg Neuts % (Manual) 79.0 H Lymphocytes % (Manual) 10.0 L Monocytes % (Manual) Basophils % (Manual) Nucleated RBC % Seg Neutrophils # Seg Neutrophils # Man 9.2 H Lymphocytes # (Manual) Monocytes # (Manual) Eosinophils # (Manual) Basophils # (Manual) PT INR APTT Heparin Anti-Xa Level POC ABG pH POC ABG pCO2 POC ABG pO2 Sodium Potassium Chloride Carbon Dioxide 16 L BUN Creatinine Glucose 102 H POC Glucose 173 H Calcium 7.5 L Phosphorus Magnesium AST Alkaline Phosphatase C-Reactive Protein Total Protein Albumin Lipase Vitamin B12 TSH Urine WBC (Auto) Urine Chloride Urine Total Protein Vancomycin Trough Crossmatch 11/14/16 11/14/16 11/14/16 11:43 16:57 19:45 WBC RBC Hgb Hct MCV RDW Plt Count Lymph % (Auto) Phillips % (Auto) Phillips # Seg Neutrophils % Seg Neuts % (Manual) Lymphocytes % (Manual) Monocytes % (Manual) Basophils % (Manual) Nucleated RBC % Seg Neutrophils # Seg Neutrophils # Man Lymphocytes # (Manual) Monocytes # (Manual) Eosinophils # (Manual) Basophils # (Manual) PT INR APTT Heparin Anti-Xa Level 0.71 H POC ABG pH POC ABG pCO2 POC ABG pO2 Sodium Potassium Chloride Carbon Dioxide BUN Creatinine Glucose POC Glucose 130 H 209 H Calcium Phosphorus Magnesium AST Alkaline Phosphatase C-Reactive Protein Total Protein Albumin Lipase Vitamin B12 TSH Urine WBC (Auto) Urine Chloride Urine Total Protein Vancomycin Trough Crossmatch 11/14/16 11/15/16 11/16/16 23:43 23:47 06:11 WBC RBC Hgb Hct MCV RDW Plt Count Lymph % (Auto) Phillips % (Auto) Phillips # Seg Neutrophils % Seg Neuts % (Manual) Lymphocytes % (Manual) Monocytes % (Manual) Basophils % (Manual) Nucleated RBC % Seg Neutrophils # Seg Neutrophils # Man Lymphocytes # (Manual) Monocytes # (Manual) Eosinophils # (Manual) Basophils # (Manual) PT INR APTT Heparin Anti-Xa Level POC ABG pH POC ABG pCO2 POC ABG pO2 Sodium Potassium Chloride Carbon Dioxide BUN Creatinine Glucose POC Glucose 167 H 114 H 125 H Calcium Phosphorus Magnesium AST Alkaline Phosphatase C-Reactive Protein Total Protein Albumin Lipase Vitamin B12 TSH Urine WBC (Auto) Urine Chloride Urine Total Protein Vancomycin Trough Crossmatch 11/16/16 11/16/16 11/16/16 09:05 09:05 09:05 WBC RBC 2.53 L Hgb 8.0 L Hct 23.7 L MCV RDW 15.9 H Plt Count Lymph % (Auto) Phillips % (Auto) Phillips # Seg Neutrophils % Seg Neuts % (Manual) Lymphocytes % (Manual) Monocytes % (Manual) Basophils % (Manual) Nucleated RBC % Seg Neutrophils # Seg Neutrophils # Man Lymphocytes # (Manual) Monocytes # (Manual) Eosinophils # (Manual) Basophils # (Manual) PT INR APTT Heparin Anti-Xa Level POC ABG pH POC ABG pCO2 POC ABG pO2 Sodium Potassium 2.5 L* D Chloride Carbon Dioxide 19 L BUN 5 L Creatinine Glucose 103 H POC Glucose Calcium 6.6 L Phosphorus Magnesium 1.3 L AST Alkaline Phosphatase C-Reactive Protein Total Protein Albumin Lipase Vitamin B12 TSH Urine WBC (Auto) Urine Chloride Urine Total Protein Vancomycin Trough Crossmatch 11/16/16 11/16/16 11/16/16 12:15 13:00 14:45 WBC RBC Hgb Hct MCV RDW Plt Count Lymph % (Auto) Phillips % (Auto) Phillips # Seg Neutrophils % Seg Neuts % (Manual) Lymphocytes % (Manual) Monocytes % (Manual) Basophils % (Manual) Nucleated RBC % Seg Neutrophils # Seg Neutrophils # Man Lymphocytes # (Manual) Monocytes # (Manual) Eosinophils # (Manual) Basophils # (Manual) PT 19.1 H INR 1.61 H APTT Heparin Anti-Xa Level POC ABG pH 7.479 H POC ABG pCO2 23.6 L POC ABG pO2 Sodium Potassium Chloride Carbon Dioxide BUN Creatinine Glucose POC Glucose 129 H Calcium Phosphorus Magnesium AST Alkaline Phosphatase C-Reactive Protein Total Protein Albumin Lipase Vitamin B12 TSH Urine WBC (Auto) Urine Chloride Urine Total Protein Vancomycin Trough Crossmatch 11/16/16 11/17/16 11/17/16 17:43 00:30 04:32 WBC RBC Hgb Hct MCV RDW Plt Count Lymph % (Auto) Phillips % (Auto) Phillips # Seg Neutrophils % Seg Neuts % (Manual) Lymphocytes % (Manual) Monocytes % (Manual) Basophils % (Manual) Nucleated RBC % Seg Neutrophils # Seg Neutrophils # Man Lymphocytes # (Manual) Monocytes # (Manual) Eosinophils # (Manual) Basophils # (Manual) PT INR APTT Heparin Anti-Xa Level POC ABG pH POC ABG pCO2 POC ABG pO2 Sodium Potassium Chloride Carbon Dioxide 18 L BUN Creatinine Glucose 127 H POC Glucose 224 H 259 H Calcium 7.5 L Phosphorus Magnesium AST Alkaline Phosphatase C-Reactive Protein Total Protein Albumin Lipase Vitamin B12 TSH Urine WBC (Auto) Urine Chloride Urine Total Protein Vancomycin Trough Crossmatch 11/17/16 11/17/16 11/17/16 05:42 08:34 12:19 WBC RBC 2.85 L Hgb 8.9 L Hct 26.5 L MCV RDW 16.2 H Plt Count Lymph % (Auto) Phillips % (Auto) Phillips # Seg Neutrophils % Seg Neuts % (Manual) Lymphocytes % (Manual) Monocytes % (Manual) Basophils % (Manual) Nucleated RBC % Seg Neutrophils # Seg Neutrophils # Man Lymphocytes # (Manual) Monocytes # (Manual) Eosinophils # (Manual) Basophils # (Manual) PT INR APTT Heparin Anti-Xa Level POC ABG pH POC ABG pCO2 POC ABG pO2 Sodium Potassium Chloride Carbon Dioxide BUN Creatinine Glucose POC Glucose 118 H 264 H Calcium Phosphorus Magnesium AST Alkaline Phosphatase C-Reactive Protein Total Protein Albumin Lipase Vitamin B12 TSH Urine WBC (Auto) Urine Chloride Urine Total Protein Vancomycin Trough Crossmatch 11/17/16 11/17/16 11/18/16 16:52 23:44 04:53 WBC RBC Hgb Hct MCV RDW Plt Count Lymph % (Auto) Phillips % (Auto) Phillips # Seg Neutrophils % Seg Neuts % (Manual) Lymphocytes % (Manual) Monocytes % (Manual) Basophils % (Manual) Nucleated RBC % Seg Neutrophils # Seg Neutrophils # Man Lymphocytes # (Manual) Monocytes # (Manual) Eosinophils # (Manual) Basophils # (Manual) PT INR APTT Heparin Anti-Xa Level POC ABG pH POC ABG pCO2 POC ABG pO2 Sodium Potassium Chloride Carbon Dioxide BUN Creatinine Glucose POC Glucose 256 H 109 H 287 H Calcium Phosphorus Magnesium AST Alkaline Phosphatase C-Reactive Protein Total Protein Albumin Lipase Vitamin B12 TSH Urine WBC (Auto) Urine Chloride Urine Total Protein Vancomycin Trough Crossmatch 11/18/16 11/18/16 11/18/16 05:31 05:45 05:45 WBC RBC Hgb Hct MCV RDW Plt Count Lymph % (Auto) Phillips % (Auto) Phillips # Seg Neutrophils % Seg Neuts % (Manual) Lymphocytes % (Manual) Monocytes % (Manual) Basophils % (Manual) Nucleated RBC % Seg Neutrophils # Seg Neutrophils # Man Lymphocytes # (Manual) Monocytes # (Manual) Eosinophils # (Manual) Basophils # (Manual) PT 20.1 H INR 1.72 H APTT 131.1 H* Heparin Anti-Xa Level 0.18 L POC ABG pH 7.252 L POC ABG pCO2 32.0 L POC ABG pO2 Sodium Potassium Chloride 107.1 H Carbon Dioxide 17 L BUN Creatinine Glucose 284 H POC Glucose Calcium 7.2 L Phosphorus Magnesium AST Alkaline Phosphatase C-Reactive Protein Total Protein 5.5 L Albumin 2.1 L Lipase Vitamin B12 TSH Urine WBC (Auto) Urine Chloride Urine Total Protein Vancomycin Trough Crossmatch 11/18/16 11/18/16 11/18/16 05:45 09:17 12:06 WBC 13.3 H RBC 3.07 L Hgb 9.2 L Hct 29.5 L MCV RDW 16.9 H Plt Count Lymph % (Auto) 11.0 L Phillips % (Auto) Phillips # Seg Neutrophils % 82.9 H Seg Neuts % (Manual) Lymphocytes % (Manual) Monocytes % (Manual) Basophils % (Manual) Nucleated RBC % Seg Neutrophils # 11.0 H Seg Neutrophils # Man Lymphocytes # (Manual) Monocytes # (Manual) Eosinophils # (Manual) Basophils # (Manual) PT INR APTT Heparin Anti-Xa Level POC ABG pH POC ABG pCO2 24.3 L POC ABG pO2 79 L Sodium Potassium Chloride Carbon Dioxide BUN Creatinine Glucose POC Glucose 433 H Calcium Phosphorus Magnesium AST Alkaline Phosphatase C-Reactive Protein Total Protein Albumin Lipase Vitamin B12 TSH Urine WBC (Auto) Urine Chloride Urine Total Protein Vancomycin Trough Crossmatch 11/18/16 11/18/16 11/18/16 12:09 13:00 17:22 WBC 12.6 H RBC 2.79 L Hgb 8.6 L Hct 26.6 L MCV RDW 17.0 H Plt Count Lymph % (Auto) Phillips % (Auto) Phillips # Seg Neutrophils % Seg Neuts % (Manual) 90.0 H Lymphocytes % (Manual) 8.0 L Monocytes % (Manual) Basophils % (Manual) Nucleated RBC % Seg Neutrophils # Seg Neutrophils # Man 11.3 H Lymphocytes # (Manual) 1.0 L Monocytes # (Manual) Eosinophils # (Manual) Basophils # (Manual) PT INR APTT Heparin Anti-Xa Level POC ABG pH POC ABG pCO2 POC ABG pO2 Sodium Potassium Chloride Carbon Dioxide BUN Creatinine Glucose POC Glucose 429 H 297 H Calcium Phosphorus Magnesium AST Alkaline Phosphatase C-Reactive Protein Total Protein Albumin Lipase Vitamin B12 TSH Urine WBC (Auto) Urine Chloride Urine Total Protein Vancomycin Trough Crossmatch 11/18/16 11/19/16 11/19/16 23:27 04:30 04:30 WBC RBC 2.92 L Hgb 8.8 L Hct 27.0 L MCV RDW 16.6 H Plt Count Lymph % (Auto) Phillips % (Auto) Phillips # Seg Neutrophils % Seg Neuts % (Manual) Lymphocytes % (Manual) Monocytes % (Manual) Basophils % (Manual) Nucleated RBC % Seg Neutrophils # Seg Neutrophils # Man Lymphocytes # (Manual) Monocytes # (Manual) Eosinophils # (Manual) Basophils # (Manual) PT INR APTT Heparin Anti-Xa Level POC ABG pH POC ABG pCO2 POC ABG pO2 Sodium Potassium 3.0 L Chloride 107.9 H Carbon Dioxide 20 L BUN Creatinine Glucose 231 H POC Glucose 268 H Calcium 7.1 L Phosphorus Magnesium AST Alkaline Phosphatase C-Reactive Protein Total Protein 5.5 L Albumin 2.1 L Lipase Vitamin B12 TSH Urine WBC (Auto) Urine Chloride Urine Total Protein Vancomycin Trough Crossmatch 11/19/16 11/19/16 11/19/16 04:40 06:40 10:00 WBC RBC Hgb Hct MCV RDW Plt Count Lymph % (Auto) Phillips % (Auto) Phillips # Seg Neutrophils % Seg Neuts % (Manual) Lymphocytes % (Manual) Monocytes % (Manual) Basophils % (Manual) Nucleated RBC % Seg Neutrophils # Seg Neutrophils # Man Lymphocytes # (Manual) Monocytes # (Manual) Eosinophils # (Manual) Basophils # (Manual) PT INR APTT Heparin Anti-Xa Level POC ABG pH POC ABG pCO2 POC ABG pO2 Sodium Potassium Chloride Carbon Dioxide BUN Creatinine Glucose POC Glucose 267 H 244 H Calcium Phosphorus Magnesium 1.4 L AST Alkaline Phosphatase C-Reactive Protein Total Protein Albumin Lipase Vitamin B12 TSH Urine WBC (Auto) Urine Chloride Urine Total Protein Vancomycin Trough Crossmatch 11/19/16 11/19/16 11/19/16 12:08 18:10 23:40 WBC RBC Hgb Hct MCV RDW Plt Count Lymph % (Auto) Phillips % (Auto) Phillips # Seg Neutrophils % Seg Neuts % (Manual) Lymphocytes % (Manual) Monocytes % (Manual) Basophils % (Manual) Nucleated RBC % Seg Neutrophils # Seg Neutrophils # Man Lymphocytes # (Manual) Monocytes # (Manual) Eosinophils # (Manual) Basophils # (Manual) PT INR APTT Heparin Anti-Xa Level POC ABG pH POC ABG pCO2 POC ABG pO2 Sodium Potassium Chloride Carbon Dioxide BUN Creatinine Glucose POC Glucose 254 H 265 H 197 H Calcium Phosphorus Magnesium AST Alkaline Phosphatase C-Reactive Protein Total Protein Albumin Lipase Vitamin B12 TSH Urine WBC (Auto) Urine Chloride Urine Total Protein Vancomycin Trough Crossmatch 11/20/16 11/20/16 11/20/16 05:00 05:44 11:33 WBC RBC Hgb Hct MCV RDW Plt Count Lymph % (Auto) Phillips % (Auto) Phillips # Seg Neutrophils % Seg Neuts % (Manual) Lymphocytes % (Manual) Monocytes % (Manual) Basophils % (Manual) Nucleated RBC % Seg Neutrophils # Seg Neutrophils # Man Lymphocytes # (Manual) Monocytes # (Manual) Eosinophils # (Manual) Basophils # (Manual) PT INR APTT Heparin Anti-Xa Level POC ABG pH POC ABG pCO2 POC ABG pO2 Sodium Potassium 3.4 L Chloride 107.4 H Carbon Dioxide 20 L BUN Creatinine Glucose 140 H POC Glucose 163 H 108 H Calcium 7.2 L Phosphorus Magnesium AST Alkaline Phosphatase C-Reactive Protein Total Protein Albumin Lipase Vitamin B12 TSH Urine WBC (Auto) Urine Chloride Urine Total Protein Vancomycin Trough Crossmatch 11/20/16 11/20/16 11/20/16 13:03 16:45 23:26 WBC RBC Hgb Hct MCV RDW Plt Count Lymph % (Auto) Phillips % (Auto) Phillips # Seg Neutrophils % Seg Neuts % (Manual) Lymphocytes % (Manual) Monocytes % (Manual) Basophils % (Manual) Nucleated RBC % Seg Neutrophils # Seg Neutrophils # Man Lymphocytes # (Manual) Monocytes # (Manual) Eosinophils # (Manual) Basophils # (Manual) PT INR APTT Heparin Anti-Xa Level POC ABG pH POC ABG pCO2 POC ABG pO2 Sodium Potassium Chloride Carbon Dioxide BUN Creatinine Glucose POC Glucose 113 H 168 H Calcium Phosphorus Magnesium AST Alkaline Phosphatase C-Reactive Protein Total Protein Albumin Lipase Vitamin B12 TSH Urine WBC (Auto) Urine Chloride Urine Total Protein Vancomycin Trough 45.8 H Crossmatch 11/21/16 11/21/16 11/21/16 05:00 05:27 09:50 WBC RBC Hgb Hct MCV RDW Plt Count Lymph % (Auto) Phillips % (Auto) Phillips # Seg Neutrophils % Seg Neuts % (Manual) Lymphocytes % (Manual) Monocytes % (Manual) Basophils % (Manual) Nucleated RBC % Seg Neutrophils # Seg Neutrophils # Man Lymphocytes # (Manual) Monocytes # (Manual) Eosinophils # (Manual) Basophils # (Manual) PT INR APTT Heparin Anti-Xa Level POC ABG pH POC ABG pCO2 POC ABG pO2 Sodium 133 L D Potassium Chloride Carbon Dioxide 19 L BUN Creatinine Glucose 280 H POC Glucose 222 H Calcium 7.4 L Phosphorus Magnesium AST Alkaline Phosphatase C-Reactive Protein Total Protein Albumin Lipase Vitamin B12 TSH Urine WBC (Auto) Urine Chloride Urine Total Protein Vancomycin Trough 30.4 H Crossmatch 11/21/16 11/21/16 11/21/16 12:36 17:17 18:34 WBC RBC Hgb Hct MCV RDW Plt Count Lymph % (Auto) Phillips % (Auto) Phillips # Seg Neutrophils % Seg Neuts % (Manual) Lymphocytes % (Manual) Monocytes % (Manual) Basophils % (Manual) Nucleated RBC % Seg Neutrophils # Seg Neutrophils # Man Lymphocytes # (Manual) Monocytes # (Manual) Eosinophils # (Manual) Basophils # (Manual) PT INR APTT Heparin Anti-Xa Level POC ABG pH POC ABG pCO2 POC ABG pO2 Sodium Potassium Chloride Carbon Dioxide BUN Creatinine Glucose POC Glucose 306 H 339 H 318 H Calcium Phosphorus Magnesium AST Alkaline Phosphatase C-Reactive Protein Total Protein Albumin Lipase Vitamin B12 TSH Urine WBC (Auto) Urine Chloride Urine Total Protein Vancomycin Trough Crossmatch 11/21/16 11/22/16 11/22/16 23:16 07:19 11:49 WBC 11.1 H RBC 2.60 L Hgb 7.8 L Hct 24.4 L MCV RDW 16.3 H Plt Count Lymph % (Auto) Phillips % (Auto) Phillips # Seg Neutrophils % 76.8 H Seg Neuts % (Manual) Lymphocytes % (Manual) Monocytes % (Manual) Basophils % (Manual) Nucleated RBC % Seg Neutrophils # 8.5 H Seg Neutrophils # Man Lymphocytes # (Manual) Monocytes # (Manual) Eosinophils # (Manual) Basophils # (Manual) PT INR APTT Heparin Anti-Xa Level POC ABG pH POC ABG pCO2 POC ABG pO2 Sodium Potassium Chloride Carbon Dioxide BUN Creatinine Glucose POC Glucose 286 H 371 H Calcium Phosphorus Magnesium AST Alkaline Phosphatase C-Reactive Protein Total Protein Albumin Lipase Vitamin B12 TSH Urine WBC (Auto) Urine Chloride Urine Total Protein Vancomycin Trough Crossmatch 11/22/16 11/22/16 11/22/16 11:50 11:50 17:34 WBC RBC Hgb Hct MCV RDW Plt Count Lymph % (Auto) [place] % (Auto) [place] # Seg Neutrophils % Seg Neuts % (Manual) Lymphocytes % (Manual) Monocytes % (Manual) Basophils % (Manual) Nucleated RBC % Seg Neutrophils # Seg Neutrophils # Man Lymphocytes # (Manual) Monocytes # (Manual) Eosinophils # (Manual) Basophils # (Manual) PT INR APTT Heparin Anti-Xa Level POC ABG pH POC ABG pCO2 POC ABG pO2 Sodium 130 L Potassium Chloride Carbon Dioxide 19 L BUN 20 H Creatinine Glucose 266 H POC Glucose 262 H 284 H Calcium 7.2 L Phosphorus Magnesium AST Alkaline Phosphatase C-Reactive Protein Total Protein Albumin Lipase Vitamin B12 TSH Urine WBC (Auto) Urine Chloride Urine Total Protein Vancomycin Trough Crossmatch 11/22/16 11/22/16 11/22/16 17:43 20:04 23:38 WBC RBC Hgb Hct MCV RDW Plt Count Lymph % (Auto) [place] % (Auto) [place] # Seg Neutrophils % Seg Neuts % (Manual) Lymphocytes % (Manual) Monocytes % (Manual) Basophils % (Manual) Nucleated RBC % Seg Neutrophils # Seg Neutrophils # Man Lymphocytes # (Manual) Monocytes # (Manual) Eosinophils # (Manual) Basophils # (Manual) PT INR APTT Heparin Anti-Xa Level POC ABG pH 7.492 H POC ABG pCO2 23.2 L POC ABG pO2 60 L Sodium Potassium Chloride Carbon Dioxide BUN Creatinine Glucose POC Glucose 261 H 253 H Calcium Phosphorus Magnesium AST Alkaline Phosphatase C-Reactive Protein Total Protein Albumin Lipase Vitamin B12 TSH Urine WBC (Auto) Urine Chloride Urine Total Protein Vancomycin Trough Crossmatch 11/23/16 11/23/16 11/23/16 06:27 08:20 11:54 WBC RBC Hgb 8.2 L Hct 24.9 L MCV RDW Plt Count Lymph % (Auto) [place] % (Auto) [place] # Seg Neutrophils % Seg Neuts % (Manual) Lymphocytes % (Manual) Monocytes % (Manual) Basophils % (Manual) Nucleated RBC % Seg Neutrophils # Seg Neutrophils # Man Lymphocytes # (Manual) Monocytes # (Manual) Eosinophils # (Manual) Basophils # (Manual) PT INR APTT Heparin Anti-Xa Level POC ABG pH POC ABG pCO2 POC ABG pO2 Sodium Potassium Chloride Carbon Dioxide BUN Creatinine Glucose POC Glucose 333 H 286 H Calcium Phosphorus Magnesium AST Alkaline Phosphatase C-Reactive Protein Total Protein Albumin Lipase Vitamin B12 TSH Urine WBC (Auto) Urine Chloride Urine Total Protein Vancomycin Trough Crossmatch 11/23/16 11/23/16 11/24/16 17:53 23:51 00:12 WBC RBC Hgb Hct MCV RDW Plt Count Lymph % (Auto) [place] % (Auto) [place] # Seg Neutrophils % Seg Neuts % (Manual) Lymphocytes % (Manual) Monocytes % (Manual) Basophils % (Manual) Nucleated RBC % Seg Neutrophils # Seg Neutrophils # Man Lymphocytes # (Manual) Monocytes # (Manual) Eosinophils # (Manual) Basophils # (Manual) PT INR APTT Heparin Anti-Xa Level POC ABG pH POC ABG pCO2 POC ABG pO2 Sodium Potassium Chloride Carbon Dioxide BUN Creatinine Glucose POC Glucose 195 H 214 H 223 H Calcium Phosphorus Magnesium AST Alkaline Phosphatase C-Reactive Protein Total Protein Albumin Lipase Vitamin B12 TSH Urine WBC (Auto) Urine Chloride Urine Total Protein Vancomycin Trough Crossmatch 11/24/16 11/24/16 11/24/16 04:50 04:50 06:08 WBC RBC 2.74 L Hgb 8.4 L Hct 26.1 L MCV RDW 16.0 H Plt Count Lymph % (Auto) [place] % (Auto) [place] # Seg Neutrophils % Seg Neuts % (Manual) Lymphocytes % (Manual) Monocytes % (Manual) Basophils % (Manual) Nucleated RBC % Seg Neutrophils # Seg Neutrophils # Man Lymphocytes # (Manual) Monocytes # (Manual) Eosinophils # (Manual) Basophils # (Manual) PT INR APTT Heparin Anti-Xa Level POC ABG pH POC ABG pCO2 POC ABG pO2 Sodium 133 L Potassium Chloride Carbon Dioxide 19 L BUN 23 H Creatinine Glucose 200 H POC Glucose 187 H Calcium 7.2 L Phosphorus Magnesium AST Alkaline Phosphatase C-Reactive Protein Total Protein Albumin Lipase Vitamin B12 TSH Urine WBC (Auto) Urine Chloride Urine Total Protein Vancomycin Trough Crossmatch 11/24/16 11/24/16 11/24/16 12:02 17:43 23:35 WBC RBC Hgb Hct MCV RDW Plt Count Lymph % (Auto) Phillips % (Auto) [place] # Seg Neutrophils % Seg Neuts % (Manual) Lymphocytes % (Manual) Monocytes % (Manual) Basophils % (Manual) Nucleated RBC % Seg Neutrophils # Seg Neutrophils # Man Lymphocytes # (Manual) Monocytes # (Manual) Eosinophils # (Manual) Basophils # (Manual) PT INR APTT Heparin Anti-Xa Level POC ABG pH POC ABG pCO2 POC ABG pO2 Sodium Potassium Chloride Carbon Dioxide BUN Creatinine Glucose POC Glucose 250 H 226 H 230 H Calcium Phosphorus Magnesium AST Alkaline Phosphatase C-Reactive Protein Total Protein Albumin Lipase Vitamin B12 TSH Urine WBC (Auto) Urine Chloride Urine Total Protein Vancomycin Trough Crossmatch 11/25/16 11/25/16 05:47 11:37 WBC RBC Hgb Hct MCV RDW Plt Count Lymph % (Auto) [place] % (Auto) [place] # Seg Neutrophils % Seg Neuts % (Manual) Lymphocytes % (Manual) Monocytes % (Manual) Basophils % (Manual) Nucleated RBC % Seg Neutrophils # Seg Neutrophils # Man Lymphocytes # (Manual) Monocytes # (Manual) Eosinophils # (Manual) Basophils # (Manual) PT INR APTT Heparin Anti-Xa Level POC ABG pH POC ABG pCO2 POC ABG pO2 Sodium Potassium Chloride Carbon Dioxide BUN Creatinine Glucose POC Glucose 229 H 226 H Calcium Phosphorus Magnesium AST Alkaline Phosphatase C-Reactive Protein Total Protein Albumin Lipase Vitamin B12 TSH Urine WBC (Auto) Urine Chloride Urine Total Protein Vancomycin Trough Crossmatch Chest x-ray: image reviewed (volume overload pattern) Allied health notes reviewed: RT
--- NOTE | 2016-11-25 16:53 | XRay Report ---
FINAL REPORT PROCEDURE: XR CHEST 1V AP TECHNIQUE: Chest radiograph anteroposterior view. CPT 72025. Two views were obtained. HISTORY: aspiration COMPARISON: Prior chest x-ray 11/18/2016 FINDINGS: Tracheostomy tube again visualize without interval change. NG tube has been removed since the prior exam. PICC line entering from the right is unchanged. The heart is magnified due to projection appears to be upper normal size. Pulmonary vasculature not significantly distended. There is increased density seen in the right perihilar region extending into the right lower lobe. There also appears to be dense consolidation in the left lower lobe obscuring the left heart border. Multifocal infiltrates and/or atelectasis could present this manner. Aspiration could also present in this manner. There also appears to be a small left effusion. No acute bony abnormalities are seen. IMPRESSION: Tracheostomy tube and right-sided PICC line unchanged. NG tube has been removed. Densities visualize right perihilar region extending into the right lower lobe and dense consolidation left lower lobe as described suggesting pneumonia or atelectasis. Aspiration could present in this manner. There does appear to be a small left effusion. Heart size upper normal.
--- NOTE | 2016-11-25 17:24 | Progress Note ---
Assessment and Plan Assessment and plan: 66-year-old woman who presented with lethargy and altered mental status with possible anoxic injury unknown duration of how long she was down for she deteriorated and was intubated and in emergency room, she was managed for DKA and she also developed sepsis due to UTI and right lower extremity ischemia. 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 Remained very difficult to wean from the vent. Although eventually was tolerating pressure support. She subsequently went into cardiac arrest was resuscitated but this time was not able to recover back to following commands as previous before second cardiac arrest. Heparin was discontinued due to CPR. Vascular did not feel at this time that for reactivation of the right lower extremity was needed. Imaging studies were consented for anoxic encephalopathy and cortical irritability although no diagnosis of brain was noted. Patient currently steroids PSV as of today I will discussed with family extensively and has informed them about real possibility of not having any meaningful neurological recovery. They agree with transfer to a skilled facility with vent Ability. Case management is working and is meantime we'll continue current therapy and management. * S/P cardiopulomary arrest. * A/C respiratory failure with hypercapenia * Seizure-Per family prior hx * DM * Hyponatremia * acute ischemia of right lower ext due to SFA thrombosis- s/p right BKA * LUCY likely vasomotor nephropathy-resolved * Sepsis- Multifactorial * Anemia of chronic disease * Hematuria * Metabolic acidosis * Severe Hypokalemia-RESOLVED Plan: * s/p EEG - findings consistent with anoxic encephalopathy and cortical irritability * Neurology notes intact brain stem * PSV as tolerated * Family updated about the very real possibility of not having any meaningful neurological recovery. all questions answered. Family meeting with daughter, and grandchild with greatgrand child in attendance. Case mangement and administrator social welfare and bedside nurse were also present. * Poor prognosis. * Plan for transfer to [facility] care facility in am * MRI brain with no gross abnormality * adjust insulin therapy * Neurologic input noted. EEG abnormal. * Heparin had to be held due to the risk associated considering recent CPR with chest compressions. * vascular following up on right BKA remains poor prognosis and likely will need a conversion to AKA. * Continue subcutaneous insulin and electrolyte replacement * Continue Cardizem and beta juan antonio * Monitor electrolytes and hemoglobin. * continue dilantin * DVT and GI prophylaxis 35 mins critical care time. History Interval history: Patient seen and examined, tolerated PSV yesterday. no OTHER adverse event reported by nursing staff. still not responsive Hospitalist Physical - Physical exam Narrative exam: VITAL SIGNS: Reviewed. GENERAL: vent support Vital signs as documented. HEAD: No signs of head trauma. EYES: Pupils are equal. EARS: Unable to assess MOUTH: missing dentition NECK: Trach CHEST: Chest with diminshed CARDIAC: Regular rate and rhythm. S1 and S2, without murmurs, gallops, or rubs. VASCULAR: trace Edema. Peripheral pulses left lower ext ABDOMEN: Soft, No rebound or guarding, and no masses palpated. Bowel Sounds normal. MUSCULOSKELETAL: BKA right lower extremity dressing in place. Some necrosis to the lateral aspect. NEUROLOGIC EXAM: not following commands, opens and closes eyes none purposeful PSYCHIATRIC: unable to assess SKIN: dressing to right lower ext stump, superficial necrosis - Constitutional Vitals: Temp Pulse Resp BP Pulse Ox 99.2 F 78 32 H 139/67 100 11/25/16 16:00 11/25/16 15:00 11/25/16 15:00 11/25/16 15:00 11/25/16 15:00 General appearance: Present: no acute distress Results - Labs CBC & Chem 7: 11/24/16 04:50 11/24/16 04:50 Labs: Laboratory Last Values WBC 9.9 K/mm3 (4.5-11.0) 11/24/16 04:50 RBC 2.74 M/mm3 (3.65-5.03) L 11/24/16 04:50 Hgb 8.4 gm/dl (10.1-14.3) L 11/24/16 04:50 Hct 26.1 % (30.3-42.9) L 11/24/16 04:50 MCV 95 fl (79-97) 11/24/16 04:50 MCH 31 pg (28-32) 11/24/16 04:50 MCHC 32 % (30-34) 11/24/16 04:50 RDW 16.0 % (13.2-15.2) H 11/24/16 04:50 Plt Count 289 K/mm3 (140-440) 11/24/16 04:50 Lymph % (Auto) 14.8 % (13.4-35.0) 11/22/16 11:49 [place] % (Auto) 6.7 % (0.0-7.3) 11/22/16 11:49 Eos % (Auto) 1.1 % (0.0-4.3) 11/22/16 11:49 Baso % (Auto) 0.6 % (0.0-1.8) 11/22/16 11:49 Lymph # 1.6 K/mm3 (1.2-5.4) 11/22/16 11:49 [place] # 0.7 K/mm3 (0.0-0.8) 11/22/16 11:49 Eos # 0.1 K/mm3 (0.0-0.4) 11/22/16 11:49 Baso # 0.1 K/mm3 (0.0-0.1) 11/22/16 11:49 Add Manual Diff Complete 11/18/16 13:00 Total Counted 100 11/18/16 13:00 Seg Neutrophils % 76.8 % (40.0-70.0) H 11/22/16 11:49 Seg Neuts % (Manual) 90.0 % (40.0-70.0) H 11/18/16 13:00 Band Neutrophils % 0 % 11/18/16 13:00 Lymphocytes % (Manual) 8.0 % (13.4-35.0) L 11/18/16 13:00 Reactive Lymphs % (Man) 0 % 11/18/16 13:00 Monocytes % (Manual) 2.0 % (0.0-7.3) 11/18/16 13:00 Eosinophils % (Manual) 0 % (0.0-4.3) 11/18/16 13:00 Basophils % (Manual) 0 % (0.0-1.8) 11/18/16 13:00 Metamyelocytes % 0 % 11/18/16 13:00 Myelocytes % 0 % 11/18/16 13:00 Promyelocytes % 0 % 11/18/16 13:00 Blast Cells % 0 % 11/18/16 13:00 Nucleated RBC % Not Reportable 11/18/16 13:00 Seg Neutrophils # 8.5 K/mm3 (1.8-7.7) H 11/22/16 11:49 Seg Neutrophils # Man 11.3 K/mm3 (1.8-7.7) H 11/18/16 13:00 Band Neutrophils # 0.0 K/mm3 11/18/16 13:00 Lymphocytes # (Manual) 1.0 K/mm3 (1.2-5.4) L 11/18/16 13:00 Abs React Lymphs (Man) 0.0 K/mm3 11/18/16 13:00 Monocytes # (Manual) 0.3 K/mm3 (0.0-0.8) 11/18/16 13:00 Eosinophils # (Manual) 0.0 K/mm3 (0.0-0.4) 11/18/16 13:00 Basophils # (Manual) 0.0 K/mm3 (0.0-0.1) 11/18/16 13:00 Metamyelocytes # 0.0 K/mm3 11/18/16 13:00 Myelocytes # 0.0 K/mm3 11/18/16 13:00 Promyelocytes # 0.0 K/mm3 11/18/16 13:00 Blast Cells # 0.0 K/mm3 11/18/16 13:00 Pathologist Review 10/29/16 09:30 WBC Morphology Not Reportable 11/18/16 13:00 Hypersegmented Neuts Not Reportable 11/18/16 13:00 Hyposegmented Neuts Not Reportable 11/18/16 13:00 Hypogranular Neuts Not Reportable 11/18/16 13:00 Hypersegmented Polys TNR 10/17/16 07:08 Smudge Cells Not Reportable 11/18/16 13:00 Toxic Granulation Not Reportable 11/18/16 13:00 Toxic Vacuolation Not Reportable 11/18/16 13:00 Dohle Bodies Not Reportable 11/18/16 13:00 Pelger-Huet Anomaly Not Reportable 11/18/16 13:00 [place] Rods Not Reportable 11/18/16 13:00 Platelet Estimate Consistent w auto 11/18/16 13:00 Clumped Platelets Not Reportable 11/18/16 13:00 Plt Clumps, EDTA Not Reportable 11/18/16 13:00 Large Platelets Not Reportable 11/18/16 13:00 Giant Platelets Not Reportable 11/18/16 13:00 Platelet Satelliting Not Reportable 11/18/16 13:00 Plt Morphology Comment Not Reportable 11/18/16 13:00 RBC Morphology Not Reportable 11/18/16 13:00 Dimorphic RBCs Not Reportable 11/18/16 13:00 Polychromasia Not Reportable 11/18/16 13:00 Hypochromasia Not Reportable 11/18/16 13:00 Poikilocytosis Not Reportable 11/18/16 13:00 Basophilic Stippling TNR 10/17/16 07:08 Anisocytosis 1+ 11/18/16 13:00 Microcytosis Not Reportable 11/18/16 13:00 Macrocytosis Not Reportable 11/18/16 13:00 Spherocytes Not Reportable 11/18/16 13:00 Pappenheimer Bodies Not Reportable 11/18/16 13:00 Sickle Cells Not Reportable 11/18/16 13:00 Target Cells Not Reportable 11/18/16 13:00 Tear Drop Cells Not Reportable 11/18/16 13:00 Ovalocytes Not Reportable 11/18/16 13:00 Stomatocytes Few 11/03/16 00:05 Helmet Cells Not Reportable 11/18/16 13:00 [place] Bodies Not Reportable 11/18/16 13:00 [place] Rings Not Reportable 11/18/16 13:00 [place] Cells Not Reportable 11/18/16 13:00 Bite Cells Not Reportable 11/18/16 13:00 Crenated Cell Not Reportable 11/18/16 13:00 Elliptocytes Not Reportable 11/18/16 13:00 Acanthocytes (Spur) Not Reportable 11/18/16 13:00 Rouleaux Not Reportable 11/18/16 13:00 Hemoglobin C Crystals Not Reportable 11/18/16 13:00 Schistocytes Not Reportable 11/18/16 13:00 Malaria parasites Not Reportable 11/18/16 13:00 David Bodies Not Reportable 11/18/16 13:00 Hem Pathologist Commnt No 11/18/16 13:00 PT 20.1 Sec. (12.2-14.9) H 11/18/16 05:45 INR 1.72 (0.87-1.13) H 11/18/16 05:45 APTT 131.1 Sec. (24.2-36.6) H* 11/18/16 05:45 Heparin Anti-Xa Level 0.51 U.I./ml (0.3-0.7) 11/18/16 11:16 POC ABG pH 7.492 (7.35-7.45) H 11/22/16 20:04 POC ABG pCO2 23.2 (35-45) L 11/22/16 20:04 POC ABG pO2 60 (80-105) L 11/22/16 20:04 POC ABG HCO3 17.8 11/22/16 20:04 POC ABG Total CO2 18 11/22/16 20:04 POC ABG O2 Sat 93 11/22/16 20:04 POC ABG Base Excess -6 11/22/16 20:04 VBG pH 7.020 (7.320-7.420) L* 10/13/16 04:22 FiO2 35 % 11/22/16 20:04 Sodium 133 mmol/L (137-145) L 11/24/16 04:50 Potassium 3.8 mmol/L (3.6-5.0) 11/24/16 04:50 Chloride 99.3 mmol/L (98-107) 11/24/16 04:50 Carbon Dioxide 19 mmol/L (22-30) L 11/24/16 04:50 Anion Gap 19 mmol/L 11/24/16 04:50 BUN 23 mg/dL (7-17) H 11/24/16 04:50 Creatinine 0.9 mg/dL (0.7-1.2) 11/24/16 04:50 Estimated GFR > 60 ml/min 11/24/16 04:50 BUN/Creatinine Ratio 25.55 % 11/24/16 04:50 Glucose 200 mg/dL (65-100) H 11/24/16 04:50 POC Glucose 226 (70-105) H 11/25/16 11:37 Osmolality 332 Mosm/kg 10/14/16 07:03 Lactic Acid 1.8 mmol/L (0.7-2.0) 10/14/16 07:03 Calcium 7.2 mg/dL (8.4-10.2) L 11/24/16 04:50 Phosphorus 2.7 mg/dL (2.5-4.5) D 10/21/16 Unknown Magnesium 2.0 mg/dL (1.7-2.3) 11/20/16 05:00 Total Bilirubin 0.2 mg/dL (0.1-1.2) 11/19/16 04:30 AST 9 units/L (5-40) 11/19/16 04:30 ALT 7 units/L (7-56) 11/19/16 04:30 Alkaline Phosphatase 82 units/L (35-129) 11/19/16 04:30 Ammonia 35.0 umol/L (25-60) 10/13/16 05:40 Total Creatine Kinase 107 units/L (30-135) 10/13/16 04:22 CK-MB (CK-2) 3.1 ng/mL (0.0-4.0) 10/13/16 04:22 CK-MB (CK-2) Rel Index 2.8 (0-4) 10/13/16 04:22 Troponin T < 0.010 ng/mL (0.00-0.029) 10/14/16 18:55 C-Reactive Protein 10.50 mg/dL (0.00-1.30) H 10/13/16 16:14 Total Protein 5.5 g/dL (6.3-8.2) L 11/19/16 04:30 Albumin 2.1 g/dL (3.9-5) L 11/19/16 04:30 Albumin/Globulin Ratio 0.6 % 11/19/16 04:30 Amylase 30 units/L (27-131) 11/10/16 04:30 Lipase 41 units/L (13-60) 11/10/16 04:30 Vitamin B12 976.8 pg/mL (211-911) H 10/22/16 10:25 TSH 0.162 mlU/mL (0.270-4.200) L 10/22/16 14:50 Free T4 0.77 ng/dL (0.76-1.46) 10/22/16 14:50 Urine Color Yellow (Yellow) 11/14/16 19:39 Urine Turbidity Cloudy (Clear) 11/14/16 19:39 Urine pH 6.0 (5.0-7.0) 11/14/16 19:39 Ur Specific [place] 1.010 (1.003-1.030) 11/14/16 19:39 Urine Protein 30 mg/dl mg/dL (Negative) 11/14/16 19:39 Urine Glucose (UA) 50 mg/dL (Negative) 11/14/16 19:39 Urine Ketones 20 mg/dL (Negative) 11/14/16 19:39 Urine Blood Lg (Negative) 11/14/16 19:39 Urine Nitrite Neg (Negative) 11/14/16 19:39 Urine Bilirubin Neg (Negative) 11/14/16 19:39 Urine Urobilinogen < 2.0 mg/dL (<2.0) 11/14/16 19:39 Ur Leukocyte Esterase Sm (Negative) 11/14/16 19:39 Urine WBC (Auto) 3.0 /HPF (0.0-6.0) 11/14/16 19:39 Urine RBC (Auto) > 182.0 /HPF (0.0-6.0) 11/14/16 19:39 U Epithel Cells (Auto) 1.0 /HPF (0-13.0) 10/15/16 11:05 Urine Bacteria (Auto) 1+ /HPF (Negative) 11/14/16 19:39 Urine Mucus Few /HPF 11/14/16 19:39 Urine Yeast (Budding) 2+ /HPF 10/15/16 11:05 Urine Osmolality 487 Mosm/kg 10/13/16 Unknown Urine Creatinine < 4.2 mg/dL (0.1-20.0) 10/13/16 Unknown Protein/Creatinin Ratio 0.00 10/13/16 Unknown Urine Sodium 10 mEq/L 10/13/16 Unknown Urine Potassium 1.00 mEq/L 10/13/16 Unknown Urine Chloride 10.0 mEq/L (110-250) L 10/13/16 Unknown Urine Total Protein < 4 mg/dL (5-11.8) L 10/13/16 Unknown Vancomycin Trough 30.4 ug/mL (5.0-20.0) H 11/21/16 09:50 Random Vancomycin 20.8 ug/mL (0-40.0) 11/23/16 04:00 Ketones 107.3 mg/dL (0.2-2.8) H 10/13/16 04:22 Blood Type A POSITIVE 11/03/16 18:01 Antibody Screen Negative 11/03/16 18:01 Crossmatch See Detail 11/03/16 18:01
--- NOTE | 2016-11-25 19:06 | Progress Note ---
Subjective Date of service: 11/25/16 Principal diagnosis: respiratory failure on mechanical ventilatory support, DKA Interval history: EEG report noted. Vital signs - afebrile CHEST - GOOD AIR ENTRY CVS - S1S2 ABD - BS_ right stump - cellulitis LABS See lab section. ASSESSMENT 1. Sepsis - resolvED 2. dka 3. resp failure 4. htn 5. clostridium difficile colitis 7. anoxic encephalopathy RECOMMENDATION 1. LTAC 2. continue current care 3. poor prognosis Objective - Constitutional Vitals: Vital Signs Temp Pulse Resp BP Pulse Ox 99.2 F 82 32 H 133/61 100 11/25/16 16:00 11/25/16 18:50 11/25/16 15:00 11/25/16 18:50 11/25/16 16:50 Temperature -Last 24 Hours Temperature 99.2 F Temperature 98.3 F Temperature 98.2 F Temperature 98.1 F Temperature 98.9 F Temperature 99.0 F - Labs CBC & Chem 7: 11/24/16 04:50 11/24/16 04:50 Labs: Abnormal lab results 11/24/16 11/25/16 11/25/16 Range/Units 23:35 05:47 11:37 POC Glucose 230 H 229 H 226 H (70-105) 11/25/16 Range/Units 18:00 POC Glucose 226 H (70-105)
[2016-11-26] MEDS: REGLAN IV SCH (06:13)
[2016-11-26] MEDS: DILANTIN IV SCH ×3 (06:13→21:49)
[2016-11-26] MEDS: LOPRESSOR PO SCH ×4 (06:16→17:50)
[2016-11-26] MEDS: HEPARIN SUB-Q SCH ×2 (06:29→14:37)
[2016-11-26] MEDS: FLAGYL 500 MG/100 ML 500 MG/100 ML BAG IV SCH ×2 (09:21→16:20)
[2016-11-26] MEDS: PLAVIX PO SCH (09:22)
[2016-11-26] MEDS: PEPCID PO SCH ×2 (09:22→21:49)
[2016-11-26] MEDS: LEVEMIR SUB-Q SCH (09:34)
[2016-11-26] MEDS ORDERED: LEVEMIR SUB-Q ONE (12:00)
--- NOTE | 2016-11-26 13:38 | Progress Note ---
Assessment and Plan - Patient Problems (1) Acute respiratory failure with hypercapnia Current Visit: Yes Status: Acute Plan to address problem: Continue with mechanical ventilatory support. VAP bundle Critical bundles addressed Agitation management HOB >40, aspiration precautions VTE/Stress ulcer prophylaxis SAT/SBT Glycemic control (2) DKA (diabetic ketoacidoses) Current Visit: Yes Status: Acute Qualifiers: Diabetes mellitus type: D Diabetes mellitus complication detail: D Plan to address problem: Continue with accucheck and glycemic control. Monitor closely (3) Altered mental status Current Visit: Yes Status: Acute Qualifiers: Altered mental status type: A Coma depth: C Coma timing: C Plan to address problem: Toxic, metabolic, anoxia. Continue to monitor (4) Acidosis Current Visit: Yes Status: Acute (5) Acute on chronic renal failure Current Visit: Yes Status: Acute Plan to address problem: Monitor renal function and electrolytes. Avoid nephrotoxic agents, adjust all medications for creatinine clearance (6) Sepsis Current Visit: Yes Status: Acute Qualifiers: Sepsis type: S (7) Cold foot Current Visit: Yes Status: Acute Qualifiers: Laterality: L Plan to address problem: As per vascular service. (8) DVT (deep venous thrombosis) Current Visit: Yes Status: Acute Qualifiers: DVT location: upper extremity Affected thrombotic vein of extremity: A Laterality: L Chronicity: C Plan to address problem: Get Doppler of the right upper extremity. If positive for DVT will need to discontinue RUE PICC line (9) Discharge planning issues Current Visit: Yes Status: Acute Plan to address problem: Discussed discharge care plan with the case management in the critical care unit. updated at the bedside. Subjective Date of service: 11/26/16 Principal diagnosis: respiratory failure on mechanical ventilatory support, DKA Interval history: Patient seen and examined. Vitals, labs, medications, chart reviewed On-going encephalopathy and agitation Tolerates PSV 20/5 s/p tracheostomy at the bedside. Seen and examined. Vitals, labs, medications and chart reviewed. Objective - Exam Narrative Exam: General: Appears ill, intubated sedated HEENT: MMM, EOMI cardiac: S1-S2 heard lungs: Ventilated breath sounds abdomen: soft, nontender, nondistended bowel sounds positive extremities: Right lower extremity has no distal pulses, cold to touch right upper extremity is swollen, PICC line inplace Skin: no rash or lesion Neuro: Intubated sedated Vital Signs - 12hr 11/26/16 11/26/16 11/26/16 01:40 02:00 02:30 Temperature 100.1 F H Pulse Rate 81 81 Respiratory 31 H 27 H Rate Blood Pressure 131/63 131/63 O2 Sat by Pulse 100 100 Oximetry O2 Sat by Pulse Oximetry [ Assessment] 11/26/16 11/26/16 11/26/16 03:00 03:30 03:37 Temperature Pulse Rate 81 117 H 117 H Respiratory 27 H 18 Rate Blood Pressure 131/60 131/60 131/60 O2 Sat by Pulse 100 100 100 Oximetry O2 Sat by Pulse 100 Oximetry [ Assessment] 11/26/16 11/26/16 11/26/16 04:00 04:30 05:00 Temperature 100.1 F H Pulse Rate 100 H 98 H 99 H Respiratory 25 H 20 24 Rate Blood Pressure 136/67 136/67 140/64 O2 Sat by Pulse 99 100 99 Oximetry O2 Sat by Pulse Oximetry [ Assessment] 11/26/16 11/26/16 11/26/16 05:30 06:00 06:30 Temperature Pulse Rate 99 H 98 H 82 Respiratory 28 H 19 20 Rate Blood Pressure 140/64 138/62 138/62 O2 Sat by Pulse 100 99 100 Oximetry O2 Sat by Pulse Oximetry [ Assessment] 11/26/16 11/26/16 11/26/16 07:00 07:30 08:00 Temperature 99.9 F H Pulse Rate 80 79 82 Respiratory 29 H 26 H 31 H Rate Blood Pressure 140/64 140/64 134/67 O2 Sat by Pulse 99 100 100 Oximetry O2 Sat by Pulse Oximetry [ Assessment] 11/26/16 11/26/16 11/26/16 08:19 08:30 09:00 Temperature Pulse Rate 83 81 83 Respiratory 26 H 28 H 33 H Rate Blood Pressure 132/72 132/72 141/70 O2 Sat by Pulse 100 100 100 Oximetry O2 Sat by Pulse Oximetry [ Assessment] 11/26/16 11/26/16 11/26/16 09:30 10:00 10:30 Temperature Pulse Rate 87 91 H 89 Respiratory 29 H 29 H 26 H Rate Blood Pressure 141/70 153/80 153/80 O2 Sat by Pulse 100 100 100 Oximetry O2 Sat by Pulse Oximetry [ Assessment] 11/26/16 11/26/16 11/26/16 11:00 11:30 11:53 Temperature Pulse Rate 89 86 100 H Respiratory 31 H 28 H 32 H Rate Blood Pressure 141/71 141/71 141/71 O2 Sat by Pulse 100 100 100 Oximetry O2 Sat by Pulse Oximetry [ Assessment] 11/26/16 11/26/16 11/26/16 12:00 12:24 12:30 Temperature 99.9 F H Pulse Rate 89 88 91 H Respiratory 31 H 18 Rate Blood Pressure 147/68 147/68 147/68 O2 Sat by Pulse 100 100 Oximetry O2 Sat by Pulse Oximetry [ Assessment] Constitutional: no acute distress, lethargic, appears uncomfortable, other ( Patient S/P CPR. Patient likely has anoxic encephalopathy) Eyes: non-icteric ENT: oropharynx moist Neck: supple, no lymphadenopathy Effort: mildly labored Ascultation: Bilateral: clear, diminished breath sounds, rales Cardiovascular: regular rate and rhythm Gastrointestinal: normoactive bowel sounds, hypoactive bowel sounds, soft, non- distended, other (Gastrostomy tube) Integumentary: normal Extremities: no cyanosis, no edema, no ischemia or petechiae, other (s/p right BKA) Neurologic: unable to assess, other (encephalopathic) Psychiatric: other (encephalopathic) CBC and BMP: 11/24/16 04:50 11/24/16 04:50 ABG, PT/INR, D-dimer: ABG POC ABG pH 7.492 (7.35-7.45) H 11/22/16 20:04 POC ABG pCO2 23.2 (35-45) L 11/22/16 20:04 POC ABG pO2 60 (80-105) L 11/22/16 20:04 POC ABG HCO3 17.8 11/22/16 20:04 POC ABG Total CO2 18 11/22/16 20:04 POC ABG O2 Sat 93 11/22/16 20:04 PT/INR, D-dimer PT 20.1 Sec. (12.2-14.9) H 11/18/16 05:45 INR 1.72 (0.87-1.13) H 11/18/16 05:45 Abnormal lab findings: Abnormal Labs 10/13/16 10/13/16 10/13/16 06:38 06:38 07:23 WBC RBC Hgb Hct MCV RDW Plt Count Lymph % (Auto) Andrew % (Auto) Andrew # Seg Neutrophils % Seg Neuts % (Manual) Lymphocytes % (Manual) Monocytes % (Manual) Basophils % (Manual) Nucleated RBC % Seg Neutrophils # Seg Neutrophils # Man Lymphocytes # (Manual) Monocytes # (Manual) Eosinophils # (Manual) Basophils # (Manual) PT INR APTT Heparin Anti-Xa Level POC ABG pH POC ABG pCO2 POC ABG pO2 Sodium Potassium 6.2 H* Chloride Carbon Dioxide 8 L* BUN 85 H Creatinine 2.8 H Glucose 602 H* POC Glucose 495 H Calcium 7.9 L Phosphorus 6.9 H D Magnesium 3.0 H AST Alkaline Phosphatase C-Reactive Protein Total Protein Albumin Lipase Vitamin B12 TSH Urine WBC (Auto) Urine Chloride Urine Total Protein Vancomycin Trough Crossmatch 10/13/16 10/13/16 10/13/16 08:49 08:55 10:12 WBC RBC Hgb Hct MCV RDW Plt Count Lymph % (Auto) Andrew % (Auto) Andrew # Seg Neutrophils % Seg Neuts % (Manual) Lymphocytes % (Manual) Monocytes % (Manual) Basophils % (Manual) Nucleated RBC % Seg Neutrophils # Seg Neutrophils # Man Lymphocytes # (Manual) Monocytes # (Manual) Eosinophils # (Manual) Basophils # (Manual) PT INR APTT Heparin Anti-Xa Level POC ABG pH POC ABG pCO2 POC ABG pO2 Sodium Potassium 5.6 H Chloride Carbon Dioxide 11 L BUN 77 H Creatinine 2.7 H Glucose 457 H POC Glucose > 500 H 424 H Calcium 8.0 L Phosphorus Magnesium AST Alkaline Phosphatase C-Reactive Protein Total Protein Albumin Lipase Vitamin B12 TSH Urine WBC (Auto) Urine Chloride Urine Total Protein Vancomycin Trough Crossmatch 10/13/16 10/13/16 10/13/16 10:44 11:22 12:20 WBC RBC Hgb Hct MCV RDW Plt Count Lymph % (Auto) Andrew % (Auto) Andrew # Seg Neutrophils % Seg Neuts % (Manual) Lymphocytes % (Manual) Monocytes % (Manual) Basophils % (Manual) Nucleated RBC % Seg Neutrophils # Seg Neutrophils # Man Lymphocytes # (Manual) Monocytes # (Manual) Eosinophils # (Manual) Basophils # (Manual) PT INR APTT Heparin Anti-Xa Level POC ABG pH POC ABG pCO2 POC ABG pO2 Sodium Potassium 5.4 H Chloride Carbon Dioxide 14 L BUN 72 H Creatinine 2.6 H Glucose 383 H POC Glucose 391 H 313 H Calcium 8.2 L Phosphorus Magnesium AST Alkaline Phosphatase C-Reactive Protein Total Protein Albumin Lipase Vitamin B12 TSH Urine WBC (Auto) Urine Chloride Urine Total Protein Vancomycin Trough Crossmatch 10/13/16 10/13/16 10/13/16 13:32 14:44 15:57 WBC RBC Hgb Hct MCV RDW Plt Count Lymph % (Auto) Andrew % (Auto) Andrew # Seg Neutrophils % Seg Neuts % (Manual) Lymphocytes % (Manual) Monocytes % (Manual) Basophils % (Manual) Nucleated RBC % Seg Neutrophils # Seg Neutrophils # Man Lymphocytes # (Manual) Monocytes # (Manual) Eosinophils # (Manual) Basophils # (Manual) PT INR APTT Heparin Anti-Xa Level POC ABG pH POC ABG pCO2 POC ABG pO2 Sodium Potassium Chloride Carbon Dioxide BUN Creatinine Glucose POC Glucose 296 H 210 H 190 H Calcium Phosphorus Magnesium AST Alkaline Phosphatase C-Reactive Protein Total Protein Albumin Lipase Vitamin B12 TSH Urine WBC (Auto) Urine Chloride Urine Total Protein Vancomycin Trough Crossmatch 10/13/16 10/13/16 10/13/16 16:14 16:14 17:17 WBC RBC Hgb Hct MCV RDW Plt Count Lymph % (Auto) Andrew % (Auto) Andrew # Seg Neutrophils % Seg Neuts % (Manual) Lymphocytes % (Manual) Monocytes % (Manual) Basophils % (Manual) Nucleated RBC % Seg Neutrophils # Seg Neutrophils # Man Lymphocytes # (Manual) Monocytes # (Manual) Eosinophils # (Manual) Basophils # (Manual) PT INR APTT Heparin Anti-Xa Level POC ABG pH POC ABG pCO2 POC ABG pO2 Sodium Potassium Chloride Carbon Dioxide 17 L BUN 58 H Creatinine 1.8 H Glucose 172 H POC Glucose 193 H Calcium 7.7 L Phosphorus Magnesium AST Alkaline Phosphatase C-Reactive Protein 10.50 H Total Protein Albumin Lipase Vitamin B12 TSH Urine WBC (Auto) Urine Chloride Urine Total Protein Vancomycin Trough Crossmatch 10/13/16 10/13/16 10/13/16 17:55 18:32 19:41 WBC RBC Hgb Hct MCV RDW Plt Count Lymph % (Auto) Andrew % (Auto) Andrew # Seg Neutrophils % Seg Neuts % (Manual) Lymphocytes % (Manual) Monocytes % (Manual) Basophils % (Manual) Nucleated RBC % Seg Neutrophils # Seg Neutrophils # Man Lymphocytes # (Manual) Monocytes # (Manual) Eosinophils # (Manual) Basophils # (Manual) PT INR APTT Heparin Anti-Xa Level POC ABG pH POC ABG pCO2 30.6 L POC ABG pO2 218 H Sodium Potassium Chloride Carbon Dioxide BUN Creatinine Glucose POC Glucose 192 H 177 H Calcium Phosphorus Magnesium AST Alkaline Phosphatase C-Reactive Protein Total Protein Albumin Lipase Vitamin B12 TSH Urine WBC (Auto) Urine Chloride Urine Total Protein Vancomycin Trough Crossmatch 10/13/16 10/13/16 10/13/16 20:54 22:07 23:13 WBC RBC Hgb Hct MCV RDW Plt Count Lymph % (Auto) Andrew % (Auto) Andrew # Seg Neutrophils % Seg Neuts % (Manual) Lymphocytes % (Manual) Monocytes % (Manual) Basophils % (Manual) Nucleated RBC % Seg Neutrophils # Seg Neutrophils # Man Lymphocytes # (Manual) Monocytes # (Manual) Eosinophils # (Manual) Basophils # (Manual) PT INR APTT Heparin Anti-Xa Level POC ABG pH POC ABG pCO2 POC ABG pO2 Sodium Potassium Chloride Carbon Dioxide BUN Creatinine Glucose POC Glucose 178 H 160 H 168 H Calcium Phosphorus Magnesium AST Alkaline Phosphatase C-Reactive Protein Total Protein Albumin Lipase Vitamin B12 TSH Urine WBC (Auto) Urine Chloride Urine Total Protein Vancomycin Trough Crossmatch 10/13/16 10/13/16 10/14/16 23:25 Unknown 00:21 WBC RBC Hgb Hct MCV RDW Plt Count Lymph % (Auto) Andrew % (Auto) Andrew # Seg Neutrophils % Seg Neuts % (Manual) Lymphocytes % (Manual) Monocytes % (Manual) Basophils % (Manual) Nucleated RBC % Seg Neutrophils # Seg Neutrophils # Man Lymphocytes # (Manual) Monocytes # (Manual) Eosinophils # (Manual) Basophils # (Manual) PT INR APTT Heparin Anti-Xa Level POC ABG pH POC ABG pCO2 POC ABG pO2 Sodium 148 H Potassium Chloride 114.6 H Carbon Dioxide 17 L BUN 56 H Creatinine 1.6 H Glucose 151 H POC Glucose 171 H Calcium 7.8 L Phosphorus Magnesium AST Alkaline Phosphatase C-Reactive Protein Total Protein Albumin Lipase Vitamin B12 TSH Urine WBC (Auto) Urine Chloride 10.0 L Urine Total Protein < 4 L Vancomycin Trough Crossmatch 10/14/16 10/14/16 10/14/16 01:22 02:29 03:30 WBC RBC Hgb Hct MCV RDW Plt Count Lymph % (Auto) Andrew % (Auto) Andrew # Seg Neutrophils % Seg Neuts % (Manual) Lymphocytes % (Manual) Monocytes % (Manual) Basophils % (Manual) Nucleated RBC % Seg Neutrophils # Seg Neutrophils # Man Lymphocytes # (Manual) Monocytes # (Manual) Eosinophils # (Manual) Basophils # (Manual) PT INR APTT Heparin Anti-Xa Level POC ABG pH POC ABG pCO2 POC ABG pO2 Sodium Potassium Chloride Carbon Dioxide BUN Creatinine Glucose POC Glucose 144 H 136 H 143 H Calcium Phosphorus Magnesium AST Alkaline Phosphatase C-Reactive Protein Total Protein Albumin Lipase Vitamin B12 TSH Urine WBC (Auto) Urine Chloride Urine Total Protein Vancomycin Trough Crossmatch 10/14/16 10/14/16 10/14/16 04:28 05:16 05:44 WBC RBC Hgb Hct MCV RDW Plt Count Lymph % (Auto) Andrew % (Auto) Andrew # Seg Neutrophils % Seg Neuts % (Manual) Lymphocytes % (Manual) Monocytes % (Manual) Basophils % (Manual) Nucleated RBC % Seg Neutrophils # Seg Neutrophils # Man Lymphocytes # (Manual) Monocytes # (Manual) Eosinophils # (Manual) Basophils # (Manual) PT INR APTT Heparin Anti-Xa Level POC ABG pH POC ABG pCO2 28.2 L POC ABG pO2 125 H Sodium Potassium Chloride Carbon Dioxide BUN Creatinine Glucose POC Glucose 133 H 160 H Calcium Phosphorus Magnesium AST Alkaline Phosphatase C-Reactive Protein Total Protein Albumin Lipase Vitamin B12 TSH Urine WBC (Auto) Urine Chloride Urine Total Protein Vancomycin Trough Crossmatch 10/14/16 10/14/16 10/14/16 06:12 06:45 07:03 WBC RBC Hgb Hct MCV RDW Plt Count Lymph % (Auto) Andrew % (Auto) Andrew # Seg Neutrophils % Seg Neuts % (Manual) Lymphocytes % (Manual) Monocytes % (Manual) Basophils % (Manual) Nucleated RBC % Seg Neutrophils # Seg Neutrophils # Man Lymphocytes # (Manual) Monocytes # (Manual) Eosinophils # (Manual) Basophils # (Manual) PT INR APTT Heparin Anti-Xa Level POC ABG pH POC ABG pCO2 POC ABG pO2 Sodium 149 H Potassium Chloride 115.4 H Carbon Dioxide 17 L BUN 45 H Creatinine 1.5 H Glucose 139 H POC Glucose 149 H Calcium 7.4 L Phosphorus 1.0 L D Magnesium AST Alkaline Phosphatase C-Reactive Protein Total Protein Albumin Lipase Vitamin B12 TSH Urine WBC (Auto) Urine Chloride Urine Total Protein Vancomycin Trough Crossmatch 10/14/16 10/14/16 10/14/16 07:03 08:02 09:16 WBC RBC Hgb Hct MCV RDW Plt Count Lymph % (Auto) Andrew % (Auto) Andrew # Seg Neutrophils % Seg Neuts % (Manual) Lymphocytes % (Manual) Monocytes % (Manual) Basophils % (Manual) Nucleated RBC % Seg Neutrophils # Seg Neutrophils # Man Lymphocytes # (Manual) Monocytes # (Manual) Eosinophils # (Manual) Basophils # (Manual) PT INR APTT Heparin Anti-Xa Level POC ABG pH POC ABG pCO2 POC ABG pO2 Sodium Potassium Chloride Carbon Dioxide BUN Creatinine Glucose POC Glucose 156 H 158 H Calcium Phosphorus Magnesium AST Alkaline Phosphatase C-Reactive Protein Total Protein Albumin Lipase 738 H Vitamin B12 TSH Urine WBC (Auto) Urine Chloride Urine Total Protein Vancomycin Trough Crossmatch 10/14/16 10/14/16 10/14/16 10:26 11:03 11:57 WBC RBC Hgb Hct MCV RDW Plt Count Lymph % (Auto) Andrew % (Auto) Andrew # Seg Neutrophils % Seg Neuts % (Manual) Lymphocytes % (Manual) Monocytes % (Manual) Basophils % (Manual) Nucleated RBC % Seg Neutrophils # Seg Neutrophils # Man Lymphocytes # (Manual) Monocytes # (Manual) Eosinophils # (Manual) Basophils # (Manual) PT INR APTT Heparin Anti-Xa Level POC ABG pH 7.198 L POC ABG pCO2 47.5 H POC ABG pO2 Sodium Potassium Chloride Carbon Dioxide BUN Creatinine Glucose POC Glucose 174 H 189 H Calcium Phosphorus Magnesium AST Alkaline Phosphatase C-Reactive Protein Total Protein Albumin Lipase Vitamin B12 TSH Urine WBC (Auto) Urine Chloride Urine Total Protein Vancomycin Trough Crossmatch 10/14/16 10/14/16 10/14/16 12:02 12:02 13:11 WBC 13.4 H RBC 3.60 L Hgb Hct MCV 98 H D RDW 13.1 L Plt Count Lymph % (Auto) Andrew % (Auto) Andrew # Seg Neutrophils % Seg Neuts % (Manual) Lymphocytes % (Manual) Monocytes % (Manual) Basophils % (Manual) Nucleated RBC % Seg Neutrophils # Seg Neutrophils # Man Lymphocytes # (Manual) Monocytes # (Manual) Eosinophils # (Manual) Basophils # (Manual) PT INR APTT Heparin Anti-Xa Level POC ABG pH POC ABG pCO2 POC ABG pO2 Sodium Potassium Chloride 110.7 H Carbon Dioxide 19 L BUN 38 H Creatinine 1.4 H Glucose 182 H POC Glucose 173 H Calcium 7.5 L Phosphorus Magnesium AST Alkaline Phosphatase C-Reactive Protein Total Protein Albumin Lipase Vitamin B12 TSH Urine WBC (Auto) Urine Chloride Urine Total Protein Vancomycin Trough Crossmatch 10/14/16 10/14/16 10/14/16 14:24 15:31 16:36 WBC RBC Hgb Hct MCV RDW Plt Count Lymph % (Auto) Andrew % (Auto) Andrew # Seg Neutrophils % Seg Neuts % (Manual) Lymphocytes % (Manual) Monocytes % (Manual) Basophils % (Manual) Nucleated RBC % Seg Neutrophils # Seg Neutrophils # Man Lymphocytes # (Manual) Monocytes # (Manual) Eosinophils # (Manual) Basophils # (Manual) PT INR APTT Heparin Anti-Xa Level POC ABG pH POC ABG pCO2 POC ABG pO2 Sodium Potassium Chloride Carbon Dioxide BUN Creatinine Glucose POC Glucose 123 H 124 H 156 H Calcium Phosphorus Magnesium AST Alkaline Phosphatase C-Reactive Protein Total Protein Albumin Lipase Vitamin B12 TSH Urine WBC (Auto) Urine Chloride Urine Total Protein Vancomycin Trough Crossmatch 10/14/16 10/14/16 10/14/16 17:43 19:00 20:08 WBC RBC Hgb Hct MCV RDW Plt Count Lymph % (Auto) Andrew % (Auto) Andrew # Seg Neutrophils % Seg Neuts % (Manual) Lymphocytes % (Manual) Monocytes % (Manual) Basophils % (Manual) Nucleated RBC % Seg Neutrophils # Seg Neutrophils # Man Lymphocytes # (Manual) Monocytes # (Manual) Eosinophils # (Manual) Basophils # (Manual) PT INR APTT Heparin Anti-Xa Level POC ABG pH POC ABG pCO2 POC ABG pO2 Sodium Potassium Chloride Carbon Dioxide BUN Creatinine Glucose POC Glucose 154 H 123 H 138 H Calcium Phosphorus Magnesium AST Alkaline Phosphatase C-Reactive Protein Total Protein Albumin Lipase Vitamin B12 TSH Urine WBC (Auto) Urine Chloride Urine Total Protein Vancomycin Trough Crossmatch 10/14/16 10/14/16 10/14/16 21:17 22:25 23:37 WBC RBC Hgb Hct MCV RDW Plt Count Lymph % (Auto) Andrew % (Auto) Andrew # Seg Neutrophils % Seg Neuts % (Manual) Lymphocytes % (Manual) Monocytes % (Manual) Basophils % (Manual) Nucleated RBC % Seg Neutrophils # Seg Neutrophils # Man Lymphocytes # (Manual) Monocytes # (Manual) Eosinophils # (Manual) Basophils # (Manual) PT INR APTT Heparin Anti-Xa Level POC ABG pH POC ABG pCO2 POC ABG pO2 Sodium Potassium Chloride Carbon Dioxide BUN Creatinine Glucose POC Glucose 148 H 132 H 137 H Calcium Phosphorus Magnesium AST Alkaline Phosphatase C-Reactive Protein Total Protein Albumin Lipase Vitamin B12 TSH Urine WBC (Auto) Urine Chloride Urine Total Protein Vancomycin Trough Crossmatch 10/15/16 10/15/16 10/15/16 00:49 01:53 03:06 WBC RBC Hgb Hct MCV RDW Plt Count Lymph % (Auto) Andrew % (Auto) Andrew # Seg Neutrophils % Seg Neuts % (Manual) Lymphocytes % (Manual) Monocytes % (Manual) Basophils % (Manual) Nucleated RBC % Seg Neutrophils # Seg Neutrophils # Man Lymphocytes # (Manual) Monocytes # (Manual) Eosinophils # (Manual) Basophils # (Manual) PT INR APTT Heparin Anti-Xa Level POC ABG pH POC ABG pCO2 POC ABG pO2 Sodium Potassium Chloride Carbon Dioxide BUN Creatinine Glucose POC Glucose 132 H 134 H 134 H Calcium Phosphorus Magnesium AST Alkaline Phosphatase C-Reactive Protein Total Protein Albumin Lipase Vitamin B12 TSH Urine WBC (Auto) Urine Chloride Urine Total Protein Vancomycin Trough Crossmatch 10/15/16 10/15/16 10/15/16 04:40 04:46 06:21 WBC RBC Hgb Hct MCV RDW Plt Count Lymph % (Auto) Andrew % (Auto) Andrew # Seg Neutrophils % Seg Neuts % (Manual) Lymphocytes % (Manual) Monocytes % (Manual) Basophils % (Manual) Nucleated RBC % Seg Neutrophils # Seg Neutrophils # Man Lymphocytes # (Manual) Monocytes # (Manual) Eosinophils # (Manual) Basophils # (Manual) PT INR APTT Heparin Anti-Xa Level POC ABG pH POC ABG pCO2 30.7 L POC ABG pO2 108 H Sodium Potassium Chloride 109.0 H Carbon Dioxide 17 L BUN 27 H Creatinine Glucose 124 H POC Glucose 160 H Calcium 7.5 L Phosphorus Magnesium AST 79 H Alkaline Phosphatase C-Reactive Protein Total Protein 5.5 L Albumin 3.0 L Lipase Vitamin B12 TSH Urine WBC (Auto) Urine Chloride Urine Total Protein Vancomycin Trough Crossmatch 10/15/16 10/15/16 10/15/16 07:12 08:01 09:03 WBC RBC Hgb Hct MCV RDW Plt Count Lymph % (Auto) Andrew % (Auto) Andrew # Seg Neutrophils % Seg Neuts % (Manual) Lymphocytes % (Manual) Monocytes % (Manual) Basophils % (Manual) Nucleated RBC % Seg Neutrophils # Seg Neutrophils # Man Lymphocytes # (Manual) Monocytes # (Manual) Eosinophils # (Manual) Basophils # (Manual) PT INR APTT Heparin Anti-Xa Level POC ABG pH POC ABG pCO2 POC ABG pO2 Sodium Potassium Chloride Carbon Dioxide BUN Creatinine Glucose POC Glucose 179 H 187 H 165 H Calcium Phosphorus Magnesium AST Alkaline Phosphatase C-Reactive Protein Total Protein Albumin Lipase Vitamin B12 TSH Urine WBC (Auto) Urine Chloride Urine Total Protein Vancomycin Trough Crossmatch 10/15/16 10/15/16 10/15/16 10:06 10:06 10:07 WBC 12.1 H RBC 3.01 L Hgb 9.7 L Hct 29.6 L MCV 98 H RDW Plt Count 129 L Lymph % (Auto) Andrew % (Auto) Andrew # Seg Neutrophils % Seg Neuts % (Manual) Lymphocytes % (Manual) Monocytes % (Manual) Basophils % (Manual) Nucleated RBC % Seg Neutrophils # Seg Neutrophils # Man Lymphocytes # (Manual) Monocytes # (Manual) Eosinophils # (Manual) Basophils # (Manual) PT INR APTT Heparin Anti-Xa Level POC ABG pH POC ABG pCO2 POC ABG pO2 Sodium Potassium 3.2 L D Chloride 109.6 H Carbon Dioxide 18 L BUN 22 H Creatinine Glucose 127 H POC Glucose 147 H Calcium 7.0 L Phosphorus Magnesium AST Alkaline Phosphatase C-Reactive Protein Total Protein Albumin Lipase Vitamin B12 TSH Urine WBC (Auto) Urine Chloride Urine Total Protein Vancomycin Trough Crossmatch 10/15/16 10/15/16 10/15/16 11:05 11:06 11:57 WBC RBC Hgb Hct MCV RDW Plt Count Lymph % (Auto) Andrew % (Auto) Andrew # Seg Neutrophils % Seg Neuts % (Manual) Lymphocytes % (Manual) Monocytes % (Manual) Basophils % (Manual) Nucleated RBC % Seg Neutrophils # Seg Neutrophils # Man Lymphocytes # (Manual) Monocytes # (Manual) Eosinophils # (Manual) Basophils # (Manual) PT INR APTT Heparin Anti-Xa Level POC ABG pH 7.305 L POC ABG pCO2 POC ABG pO2 Sodium Potassium Chloride Carbon Dioxide BUN Creatinine Glucose POC Glucose 145 H Calcium Phosphorus Magnesium AST Alkaline Phosphatase C-Reactive Protein Total Protein Albumin Lipase Vitamin B12 TSH Urine WBC (Auto) 7.0 H Urine Chloride Urine Total Protein Vancomycin Trough Crossmatch 10/15/16 10/15/16 10/15/16 12:04 13:59 15:24 WBC RBC Hgb Hct MCV RDW Plt Count Lymph % (Auto) Andrew % (Auto) Andrew # Seg Neutrophils % Seg Neuts % (Manual) Lymphocytes % (Manual) Monocytes % (Manual) Basophils % (Manual) Nucleated RBC % Seg Neutrophils # Seg Neutrophils # Man Lymphocytes # (Manual) Monocytes # (Manual) Eosinophils # (Manual) Basophils # (Manual) PT INR APTT Heparin Anti-Xa Level POC ABG pH POC ABG pCO2 POC ABG pO2 Sodium Potassium Chloride Carbon Dioxide BUN Creatinine Glucose POC Glucose 123 H 147 H 153 H Calcium Phosphorus Magnesium AST Alkaline Phosphatase C-Reactive Protein Total Protein Albumin Lipase Vitamin B12 TSH Urine WBC (Auto) Urine Chloride Urine Total Protein Vancomycin Trough Crossmatch 10/15/16 10/15/16 10/15/16 16:30 17:34 18:30 WBC RBC Hgb Hct MCV RDW Plt Count Lymph % (Auto) Andrew % (Auto) Andrew # Seg Neutrophils % Seg Neuts % (Manual) Lymphocytes % (Manual) Monocytes % (Manual) Basophils % (Manual) Nucleated RBC % Seg Neutrophils # Seg Neutrophils # Man Lymphocytes # (Manual) Monocytes # (Manual) Eosinophils # (Manual) Basophils # (Manual) PT INR APTT Heparin Anti-Xa Level POC ABG pH POC ABG pCO2 POC ABG pO2 Sodium Potassium Chloride Carbon Dioxide BUN Creatinine Glucose POC Glucose 223 H 236 H 164 H Calcium Phosphorus Magnesium AST Alkaline Phosphatase C-Reactive Protein Total Protein Albumin Lipase Vitamin B12 TSH Urine WBC (Auto) Urine Chloride Urine Total Protein Vancomycin Trough Crossmatch 10/15/16 10/15/16 10/15/16 19:14 20:31 21:23 WBC RBC Hgb Hct MCV RDW Plt Count Lymph % (Auto) Andrew % (Auto) Andrew # Seg Neutrophils % Seg Neuts % (Manual) Lymphocytes % (Manual) Monocytes % (Manual) Basophils % (Manual) Nucleated RBC % Seg Neutrophils # Seg Neutrophils # Man Lymphocytes # (Manual) Monocytes # (Manual) Eosinophils # (Manual) Basophils # (Manual) PT INR APTT Heparin Anti-Xa Level POC ABG pH POC ABG pCO2 POC ABG pO2 Sodium Potassium Chloride Carbon Dioxide BUN Creatinine Glucose POC Glucose 138 H 158 H 158 H Calcium Phosphorus Magnesium AST Alkaline Phosphatase C-Reactive Protein Total Protein Albumin Lipase Vitamin B12 TSH Urine WBC (Auto) Urine Chloride Urine Total Protein Vancomycin Trough Crossmatch 10/15/16 10/15/16 10/16/16 22:04 22:57 00:11 WBC RBC Hgb Hct MCV RDW Plt Count Lymph % (Auto) Andrew % (Auto) Andrew # Seg Neutrophils % Seg Neuts % (Manual) Lymphocytes % (Manual) Monocytes % (Manual) Basophils % (Manual) Nucleated RBC % Seg Neutrophils # Seg Neutrophils # Man Lymphocytes # (Manual) Monocytes # (Manual) Eosinophils # (Manual) Basophils # (Manual) PT INR APTT Heparin Anti-Xa Level POC ABG pH POC ABG pCO2 POC ABG pO2 Sodium Potassium Chloride Carbon Dioxide BUN Creatinine Glucose POC Glucose 168 H 213 H 166 H Calcium Phosphorus Magnesium AST Alkaline Phosphatase C-Reactive Protein Total Protein Albumin Lipase Vitamin B12 TSH Urine WBC (Auto) Urine Chloride Urine Total Protein Vancomycin Trough Crossmatch 10/16/16 10/16/16 10/16/16 01:16 02:32 03:38 WBC RBC Hgb Hct MCV RDW Plt Count Lymph % (Auto) Andrew % (Auto) Andrew # Seg Neutrophils % Seg Neuts % (Manual) Lymphocytes % (Manual) Monocytes % (Manual) Basophils % (Manual) Nucleated RBC % Seg Neutrophils # Seg Neutrophils # Man Lymphocytes # (Manual) Monocytes # (Manual) Eosinophils # (Manual) Basophils # (Manual) PT INR APTT Heparin Anti-Xa Level POC ABG pH POC ABG pCO2 POC ABG pO2 Sodium Potassium Chloride Carbon Dioxide BUN Creatinine Glucose POC Glucose 171 H 164 H 147 H Calcium Phosphorus Magnesium AST Alkaline Phosphatase C-Reactive Protein Total Protein Albumin Lipase Vitamin B12 TSH Urine WBC (Auto) Urine Chloride Urine Total Protein Vancomycin Trough Crossmatch 10/16/16 10/16/16 10/16/16 04:14 04:14 04:49 WBC RBC Hgb Hct MCV RDW Plt Count Lymph % (Auto) Andrew % (Auto) Andrew # Seg Neutrophils % Seg Neuts % (Manual) Lymphocytes % (Manual) Monocytes % (Manual) Basophils % (Manual) Nucleated RBC % Seg Neutrophils # Seg Neutrophils # Man Lymphocytes # (Manual) Monocytes # (Manual) Eosinophils # (Manual) Basophils # (Manual) PT INR APTT Heparin Anti-Xa Level POC ABG pH POC ABG pCO2 POC ABG pO2 Sodium 147 H Potassium Chloride 110.9 H Carbon Dioxide 19 L BUN Creatinine Glucose 139 H POC Glucose 144 H Calcium 7.3 L Phosphorus 2.3 L Magnesium AST Alkaline Phosphatase C-Reactive Protein Total Protein Albumin Lipase 143 H Vitamin B12 TSH Urine WBC (Auto) Urine Chloride Urine Total Protein Vancomycin Trough Crossmatch 10/16/16 10/16/16 10/16/16 05:03 05:41 05:58 WBC 16.5 H RBC 3.36 L Hgb Hct MCV 98 H RDW 13.1 L Plt Count Lymph % (Auto) 8.5 L Andrew % (Auto) 7.6 H Andrew # 1.3 H Seg Neutrophils % 83.3 H Seg Neuts % (Manual) Lymphocytes % (Manual) Monocytes % (Manual) Basophils % (Manual) Nucleated RBC % Seg Neutrophils # 13.8 H Seg Neutrophils # Man Lymphocytes # (Manual) Monocytes # (Manual) Eosinophils # (Manual) Basophils # (Manual) PT INR APTT Heparin Anti-Xa Level POC ABG pH POC ABG pCO2 30.7 L POC ABG pO2 128 H Sodium Potassium Chloride Carbon Dioxide BUN Creatinine Glucose POC Glucose 131 H Calcium Phosphorus Magnesium AST Alkaline Phosphatase C-Reactive Protein Total Protein Albumin Lipase Vitamin B12 TSH Urine WBC (Auto) Urine Chloride Urine Total Protein Vancomycin Trough Crossmatch 10/16/16 10/16/16 10/16/16 06:32 09:27 09:35 WBC RBC Hgb Hct MCV RDW Plt Count Lymph % (Auto) Andrew % (Auto) Andrew # Seg Neutrophils % Seg Neuts % (Manual) Lymphocytes % (Manual) Monocytes % (Manual) Basophils % (Manual) Nucleated RBC % Seg Neutrophils # Seg Neutrophils # Man Lymphocytes # (Manual) Monocytes # (Manual) Eosinophils # (Manual) Basophils # (Manual) PT INR APTT Heparin Anti-Xa Level POC ABG pH POC ABG pCO2 32.8 L POC ABG pO2 137 H Sodium Potassium Chloride Carbon Dioxide BUN Creatinine Glucose POC Glucose 121 H 150 H Calcium Phosphorus Magnesium AST Alkaline Phosphatase C-Reactive Protein Total Protein Albumin Lipase Vitamin B12 TSH Urine WBC (Auto) Urine Chloride Urine Total Protein Vancomycin Trough Crossmatch 10/16/16 10/16/16 10/16/16 10:47 13:27 14:24 WBC RBC Hgb Hct MCV RDW Plt Count Lymph % (Auto) Andrew % (Auto) Andrew # Seg Neutrophils % Seg Neuts % (Manual) Lymphocytes % (Manual) Monocytes % (Manual) Basophils % (Manual) Nucleated RBC % Seg Neutrophils # Seg Neutrophils # Man Lymphocytes # (Manual) Monocytes # (Manual) Eosinophils # (Manual) Basophils # (Manual) PT INR APTT Heparin Anti-Xa Level POC ABG pH POC ABG pCO2 POC ABG pO2 Sodium Potassium Chloride Carbon Dioxide BUN Creatinine Glucose POC Glucose 184 H 171 H 174 H Calcium Phosphorus Magnesium AST Alkaline Phosphatase C-Reactive Protein Total Protein Albumin Lipase Vitamin B12 TSH Urine WBC (Auto) Urine Chloride Urine Total Protein Vancomycin Trough Crossmatch 10/16/16 10/16/16 10/16/16 15:48 16:26 18:17 WBC RBC Hgb Hct MCV RDW Plt Count Lymph % (Auto) Andrew % (Auto) Andrew # Seg Neutrophils % Seg Neuts % (Manual) Lymphocytes % (Manual) Monocytes % (Manual) Basophils % (Manual) Nucleated RBC % Seg Neutrophils # Seg Neutrophils # Man Lymphocytes # (Manual) Monocytes # (Manual) Eosinophils # (Manual) Basophils # (Manual) PT INR APTT Heparin Anti-Xa Level POC ABG pH POC ABG pCO2 POC ABG pO2 Sodium Potassium Chloride Carbon Dioxide BUN Creatinine Glucose POC Glucose 205 H 204 H 234 H Calcium Phosphorus Magnesium AST Alkaline Phosphatase C-Reactive Protein Total Protein Albumin Lipase Vitamin B12 TSH Urine WBC (Auto) Urine Chloride Urine Total Protein Vancomycin Trough Crossmatch 10/16/16 10/16/16 10/16/16 19:40 20:33 21:36 WBC RBC Hgb Hct MCV RDW Plt Count Lymph % (Auto) Andrew % (Auto) Andrew # Seg Neutrophils % Seg Neuts % (Manual) Lymphocytes % (Manual) Monocytes % (Manual) Basophils % (Manual) Nucleated RBC % Seg Neutrophils # Seg Neutrophils # Man Lymphocytes # (Manual) Monocytes # (Manual) Eosinophils # (Manual) Basophils # (Manual) PT INR APTT Heparin Anti-Xa Level POC ABG pH POC ABG pCO2 POC ABG pO2 Sodium Potassium Chloride Carbon Dioxide BUN Creatinine Glucose POC Glucose 167 H 153 H 158 H Calcium Phosphorus Magnesium AST Alkaline Phosphatase C-Reactive Protein Total Protein Albumin Lipase Vitamin B12 TSH Urine WBC (Auto) Urine Chloride Urine Total Protein Vancomycin Trough Crossmatch 10/16/16 10/16/16 10/17/16 22:54 23:48 00:47 WBC RBC Hgb Hct MCV RDW Plt Count Lymph % (Auto) Andrew % (Auto) Andrew # Seg Neutrophils % Seg Neuts % (Manual) Lymphocytes % (Manual) Monocytes % (Manual) Basophils % (Manual) Nucleated RBC % Seg Neutrophils # Seg Neutrophils # Man Lymphocytes # (Manual) Monocytes # (Manual) Eosinophils # (Manual) Basophils # (Manual) PT INR APTT Heparin Anti-Xa Level POC ABG pH POC ABG pCO2 POC ABG pO2 Sodium Potassium Chloride Carbon Dioxide BUN Creatinine Glucose POC Glucose 180 H 207 H 196 H Calcium Phosphorus Magnesium AST Alkaline Phosphatase C-Reactive Protein Total Protein Albumin Lipase Vitamin B12 TSH Urine WBC (Auto) Urine Chloride Urine Total Protein Vancomycin Trough Crossmatch 10/17/16 10/17/16 10/17/16 01:57 02:49 03:50 WBC RBC Hgb Hct MCV RDW Plt Count Lymph % (Auto) Andrew % (Auto) Andrew # Seg Neutrophils % Seg Neuts % (Manual) Lymphocytes % (Manual) Monocytes % (Manual) Basophils % (Manual) Nucleated RBC % Seg Neutrophils # Seg Neutrophils # Man Lymphocytes # (Manual) Monocytes # (Manual) Eosinophils # (Manual) Basophils # (Manual) PT INR APTT Heparin Anti-Xa Level POC ABG pH POC ABG pCO2 POC ABG pO2 Sodium Potassium Chloride Carbon Dioxide BUN Creatinine Glucose POC Glucose 180 H 151 H 106 H Calcium Phosphorus Magnesium AST Alkaline Phosphatase C-Reactive Protein Total Protein Albumin Lipase Vitamin B12 TSH Urine WBC (Auto) Urine Chloride Urine Total Protein Vancomycin Trough Crossmatch 10/17/16 10/17/16 10/17/16 04:59 06:03 06:35 WBC RBC Hgb Hct MCV RDW Plt Count Lymph % (Auto) Andrew % (Auto) Andrew # Seg Neutrophils % Seg Neuts % (Manual) Lymphocytes % (Manual) Monocytes % (Manual) Basophils % (Manual) Nucleated RBC % Seg Neutrophils # Seg Neutrophils # Man Lymphocytes # (Manual) Monocytes # (Manual) Eosinophils # (Manual) Basophils # (Manual) PT INR APTT Heparin Anti-Xa Level POC ABG pH 7.453 H POC ABG pCO2 30.1 L POC ABG pO2 111 H Sodium Potassium Chloride Carbon Dioxide BUN Creatinine Glucose POC Glucose 145 H 157 H Calcium Phosphorus Magnesium AST Alkaline Phosphatase C-Reactive Protein Total Protein Albumin Lipase Vitamin B12 TSH Urine WBC (Auto) Urine Chloride Urine Total Protein Vancomycin Trough Crossmatch 10/17/16 10/17/16 10/17/16 07:08 07:11 08:01 WBC RBC Hgb Hct MCV RDW Plt Count Lymph % (Auto) Andrew % (Auto) Andrew # Seg Neutrophils % Seg Neuts % (Manual) Lymphocytes % (Manual) Monocytes % (Manual) Basophils % (Manual) Nucleated RBC % Seg Neutrophils # Seg Neutrophils # Man Lymphocytes # (Manual) Monocytes # (Manual) Eosinophils # (Manual) Basophils # (Manual) PT INR APTT Heparin Anti-Xa Level POC ABG pH POC ABG pCO2 POC ABG pO2 Sodium 147 H Potassium Chloride 113.8 H Carbon Dioxide 19 L BUN Creatinine Glucose 136 H POC Glucose 136 H 152 H Calcium 7.7 L Phosphorus Magnesium AST Alkaline Phosphatase C-Reactive Protein Total Protein Albumin Lipase Vitamin B12 TSH Urine WBC (Auto) Urine Chloride Urine Total Protein Vancomycin Trough Crossmatch 10/17/16 10/17/16 10/17/16 08:23 09:17 09:53 WBC 18.1 H RBC 3.01 L Hgb 9.7 L Hct 29.4 L MCV 98 H RDW Plt Count 116 L Lymph % (Auto) Andrew % (Auto) Andrew # Seg Neutrophils % Seg Neuts % (Manual) 77.0 H Lymphocytes % (Manual) 4.0 L Monocytes % (Manual) 12.0 H Basophils % (Manual) Nucleated RBC % Seg Neutrophils # Seg Neutrophils # Man 13.9 H Lymphocytes # (Manual) 0.7 L Monocytes # (Manual) 2.2 H Eosinophils # (Manual) Basophils # (Manual) PT INR APTT Heparin Anti-Xa Level POC ABG pH POC ABG pCO2 POC ABG pO2 Sodium Potassium Chloride Carbon Dioxide BUN Creatinine Glucose POC Glucose 148 H 137 H Calcium Phosphorus Magnesium AST Alkaline Phosphatase C-Reactive Protein Total Protein Albumin Lipase Vitamin B12 TSH Urine WBC (Auto) Urine Chloride Urine Total Protein Vancomycin Trough Crossmatch 10/17/16 10/17/16 10/17/16 11:43 16:07 17:42 WBC RBC Hgb Hct MCV RDW Plt Count Lymph % (Auto) Andrew % (Auto) Andrew # Seg Neutrophils % Seg Neuts % (Manual) Lymphocytes % (Manual) Monocytes % (Manual) Basophils % (Manual) Nucleated RBC % Seg Neutrophils # Seg Neutrophils # Man Lymphocytes # (Manual) Monocytes # (Manual) Eosinophils # (Manual) Basophils # (Manual) PT 16.4 H INR 1.33 H APTT 38.8 H Heparin Anti-Xa Level POC ABG pH POC ABG pCO2 POC ABG pO2 Sodium Potassium Chloride Carbon Dioxide BUN Creatinine Glucose POC Glucose 179 H 153 H Calcium Phosphorus Magnesium AST Alkaline Phosphatase C-Reactive Protein Total Protein Albumin Lipase Vitamin B12 TSH Urine WBC (Auto) Urine Chloride Urine Total Protein Vancomycin Trough Crossmatch 10/17/16 10/18/16 10/18/16 22:54 04:37 05:39 WBC RBC Hgb Hct MCV RDW Plt Count Lymph % (Auto) Andrew % (Auto) Andrew # Seg Neutrophils % Seg Neuts % (Manual) Lymphocytes % (Manual) Monocytes % (Manual) Basophils % (Manual) Nucleated RBC % Seg Neutrophils # Seg Neutrophils # Man Lymphocytes # (Manual) Monocytes # (Manual) Eosinophils # (Manual) Basophils # (Manual) PT INR APTT Heparin Anti-Xa Level 0.27 L POC ABG pH 7.454 H POC ABG pCO2 30.8 L POC ABG pO2 115 H Sodium Potassium Chloride Carbon Dioxide BUN Creatinine Glucose POC Glucose 69 L Calcium Phosphorus Magnesium AST Alkaline Phosphatase C-Reactive Protein Total Protein Albumin Lipase Vitamin B12 TSH Urine WBC (Auto) Urine Chloride Urine Total Protein Vancomycin Trough Crossmatch 10/18/16 10/18/16 10/18/16 06:46 06:46 06:46 WBC 20.5 H RBC 2.62 L Hgb 8.4 L Hct 26.0 L MCV 100 H RDW Plt Count Lymph % (Auto) Andrew % (Auto) Andrew # Seg Neutrophils % Seg Neuts % (Manual) 75.0 H Lymphocytes % (Manual) 9.0 L Monocytes % (Manual) 14.0 H Basophils % (Manual) Nucleated RBC % Seg Neutrophils # Seg Neutrophils # Man 15.4 H Lymphocytes # (Manual) Monocytes # (Manual) 2.9 H Eosinophils # (Manual) Basophils # (Manual) PT INR APTT Heparin Anti-Xa Level POC ABG pH POC ABG pCO2 POC ABG pO2 Sodium Potassium Chloride 110.6 H Carbon Dioxide BUN Creatinine 1.3 H Glucose 153 H POC Glucose Calcium 8.0 L Phosphorus Magnesium 1.6 L AST Alkaline Phosphatase C-Reactive Protein Total Protein Albumin Lipase Vitamin B12 TSH Urine WBC (Auto) Urine Chloride Urine Total Protein Vancomycin Trough Crossmatch 10/18/16 10/18/16 10/18/16 07:30 11:37 17:51 WBC RBC Hgb Hct MCV RDW Plt Count Lymph % (Auto) Andrew % (Auto) Andrew # Seg Neutrophils % Seg Neuts % (Manual) Lymphocytes % (Manual) Monocytes % (Manual) Basophils % (Manual) Nucleated RBC % Seg Neutrophils # Seg Neutrophils # Man Lymphocytes # (Manual) Monocytes # (Manual) Eosinophils # (Manual) Basophils # (Manual) PT INR APTT Heparin Anti-Xa Level POC ABG pH POC ABG pCO2 POC ABG pO2 Sodium Potassium Chloride Carbon Dioxide BUN Creatinine Glucose POC Glucose 162 H 156 H 164 H Calcium Phosphorus Magnesium AST Alkaline Phosphatase C-Reactive Protein Total Protein Albumin Lipase Vitamin B12 TSH Urine WBC (Auto) Urine Chloride Urine Total Protein Vancomycin Trough Crossmatch 10/18/16 10/19/16 10/19/16 23:44 03:59 05:13 WBC 18.2 H RBC 2.76 L Hgb 9.0 L Hct 27.7 L MCV 100 H RDW Plt Count Lymph % (Auto) Andrew % (Auto) Andrew # Seg Neutrophils % Seg Neuts % (Manual) 76.0 H Lymphocytes % (Manual) 10.0 L Monocytes % (Manual) Basophils % (Manual) Nucleated RBC % Seg Neutrophils # Seg Neutrophils # Man 13.8 H Lymphocytes # (Manual) Monocytes # (Manual) Eosinophils # (Manual) Basophils # (Manual) PT INR APTT Heparin Anti-Xa Level POC ABG pH POC ABG pCO2 32.2 L POC ABG pO2 128 H Sodium Potassium Chloride Carbon Dioxide BUN Creatinine Glucose POC Glucose 278 H Calcium Phosphorus Magnesium AST Alkaline Phosphatase C-Reactive Protein Total Protein Albumin Lipase Vitamin B12 TSH Urine WBC (Auto) Urine Chloride Urine Total Protein Vancomycin Trough Crossmatch 10/19/16 10/19/16 10/19/16 06:01 06:30 12:20 WBC RBC Hgb Hct MCV RDW Plt Count Lymph % (Auto) Andrew % (Auto) Andrew # Seg Neutrophils % Seg Neuts % (Manual) Lymphocytes % (Manual) Monocytes % (Manual) Basophils % (Manual) Nucleated RBC % Seg Neutrophils # Seg Neutrophils # Man Lymphocytes # (Manual) Monocytes # (Manual) Eosinophils # (Manual) Basophils # (Manual) PT INR APTT Heparin Anti-Xa Level POC ABG pH POC ABG pCO2 POC ABG pO2 Sodium Potassium Chloride Carbon Dioxide 18 L BUN Creatinine 1.3 H Glucose 262 H POC Glucose 261 H 349 H Calcium 7.7 L Phosphorus 4.8 H D Magnesium AST Alkaline Phosphatase C-Reactive Protein Total Protein Albumin Lipase Vitamin B12 TSH Urine WBC (Auto) Urine Chloride Urine Total Protein Vancomycin Trough Crossmatch 10/19/16 10/20/16 10/20/16 16:48 00:17 05:20 WBC 22.5 H RBC 2.80 L Hgb 8.9 L Hct 28.3 L MCV 101 H RDW Plt Count Lymph % (Auto) Andrew % (Auto) Andrew # Seg Neutrophils % Seg Neuts % (Manual) Lymphocytes % (Manual) 10.0 L Monocytes % (Manual) Basophils % (Manual) Nucleated RBC % Seg Neutrophils # Seg Neutrophils # Man 13.3 H Lymphocytes # (Manual) Monocytes # (Manual) 1.1 H Eosinophils # (Manual) 0.7 H Basophils # (Manual) PT INR APTT Heparin Anti-Xa Level POC ABG pH POC ABG pCO2 POC ABG pO2 Sodium Potassium Chloride Carbon Dioxide BUN Creatinine Glucose POC Glucose 248 H 346 H Calcium Phosphorus Magnesium AST Alkaline Phosphatase C-Reactive Protein Total Protein Albumin Lipase Vitamin B12 TSH Urine WBC (Auto) Urine Chloride Urine Total Protein Vancomycin Trough Crossmatch 10/20/16 10/20/16 10/20/16 05:20 05:20 06:05 WBC RBC Hgb Hct MCV RDW Plt Count Lymph % (Auto) Andrew % (Auto) Andrew # Seg Neutrophils % Seg Neuts % (Manual) Lymphocytes % (Manual) Monocytes % (Manual) Basophils % (Manual) Nucleated RBC % Seg Neutrophils # Seg Neutrophils # Man Lymphocytes # (Manual) Monocytes # (Manual) Eosinophils # (Manual) Basophils # (Manual) PT INR APTT Heparin Anti-Xa Level 0.20 L POC ABG pH POC ABG pCO2 POC ABG pO2 Sodium Potassium Chloride Carbon Dioxide BUN 20 H Creatinine Glucose 374 H POC Glucose 337 H Calcium 8.3 L Phosphorus Magnesium AST Alkaline Phosphatase C-Reactive Protein Total Protein Albumin Lipase Vitamin B12 TSH Urine WBC (Auto) Urine Chloride Urine Total Protein Vancomycin Trough Crossmatch 10/20/16 10/20/16 10/20/16 11:49 13:59 17:56 WBC RBC Hgb Hct MCV RDW Plt Count Lymph % (Auto) Andrew % (Auto) Andrew # Seg Neutrophils % Seg Neuts % (Manual) Lymphocytes % (Manual) Monocytes % (Manual) Basophils % (Manual) Nucleated RBC % Seg Neutrophils # Seg Neutrophils # Man Lymphocytes # (Manual) Monocytes # (Manual) Eosinophils # (Manual) Basophils # (Manual) PT INR APTT Heparin Anti-Xa Level 2.00 H POC ABG pH POC ABG pCO2 POC ABG pO2 Sodium Potassium Chloride Carbon Dioxide BUN Creatinine Glucose POC Glucose 305 H 362 H Calcium Phosphorus Magnesium AST Alkaline Phosphatase C-Reactive Protein Total Protein Albumin Lipase Vitamin B12 TSH Urine WBC (Auto) Urine Chloride Urine Total Protein Vancomycin Trough Crossmatch 10/20/16 10/21/16 10/21/16 23:52 05:00 05:49 WBC 22.9 H RBC 2.49 L Hgb 7.7 L Hct 25.6 L MCV 103 H RDW Plt Count Lymph % (Auto) Andrew % (Auto) Andrew # Seg Neutrophils % Seg Neuts % (Manual) 94.0 H Lymphocytes % (Manual) 1.0 L Monocytes % (Manual) Basophils % (Manual) Nucleated RBC % Seg Neutrophils # Seg Neutrophils # Man 21.5 H Lymphocytes # (Manual) 0.2 L Monocytes # (Manual) 1.1 H Eosinophils # (Manual) Basophils # (Manual) PT INR APTT Heparin Anti-Xa Level POC ABG pH POC ABG pCO2 POC ABG pO2 Sodium Potassium Chloride Carbon Dioxide BUN Creatinine Glucose POC Glucose 252 H 180 H Calcium Phosphorus Magnesium AST Alkaline Phosphatase C-Reactive Protein Total Protein Albumin Lipase Vitamin B12 TSH Urine WBC (Auto) Urine Chloride Urine Total Protein Vancomycin Trough Crossmatch 10/21/16 10/21/16 10/21/16 11:47 11:49 14:10 WBC RBC Hgb Hct MCV RDW Plt Count Lymph % (Auto) Andrew % (Auto) Andrew # Seg Neutrophils % Seg Neuts % (Manual) Lymphocytes % (Manual) Monocytes % (Manual) Basophils % (Manual) Nucleated RBC % Seg Neutrophils # Seg Neutrophils # Man Lymphocytes # (Manual) Monocytes # (Manual) Eosinophils # (Manual) Basophils # (Manual) PT INR APTT Heparin Anti-Xa Level POC ABG pH POC ABG pCO2 POC ABG pO2 Sodium Potassium Chloride Carbon Dioxide BUN Creatinine Glucose POC Glucose 50 L 56 L 140 H Calcium Phosphorus Magnesium AST Alkaline Phosphatase C-Reactive Protein Total Protein Albumin Lipase Vitamin B12 TSH Urine WBC (Auto) Urine Chloride Urine Total Protein Vancomycin Trough Crossmatch 10/21/16 10/21/16 10/22/16 18:24 Unknown 00:07 WBC RBC Hgb Hct MCV RDW Plt Count Lymph % (Auto) Andrew % (Auto) Andrew # Seg Neutrophils % Seg Neuts % (Manual) Lymphocytes % (Manual) Monocytes % (Manual) Basophils % (Manual) Nucleated RBC % Seg Neutrophils # Seg Neutrophils # Man Lymphocytes # (Manual) Monocytes # (Manual) Eosinophils # (Manual) Basophils # (Manual) PT INR APTT Heparin Anti-Xa Level POC ABG pH POC ABG pCO2 POC ABG pO2 Sodium 150 H Potassium 3.1 L Chloride 112.4 H Carbon Dioxide BUN 25 H Creatinine 1.4 H Glucose POC Glucose 175 H 218 H Calcium 8.0 L Phosphorus Magnesium AST Alkaline Phosphatase C-Reactive Protein Total Protein Albumin Lipase Vitamin B12 TSH Urine WBC (Auto) Urine Chloride Urine Total Protein Vancomycin Trough Crossmatch 10/22/16 10/22/16 10/22/16 04:20 04:20 10:25 WBC 20.8 H RBC 2.37 L Hgb 7.5 L Hct 23.9 L MCV 101 H RDW Plt Count Lymph % (Auto) Andrew % (Auto) Andrew # Seg Neutrophils % Seg Neuts % (Manual) 89.0 H Lymphocytes % (Manual) 7.0 L Monocytes % (Manual) Basophils % (Manual) Nucleated RBC % Seg Neutrophils # Seg Neutrophils # Man 18.5 H Lymphocytes # (Manual) Monocytes # (Manual) Eosinophils # (Manual) Basophils # (Manual) 0.2 H PT INR APTT Heparin Anti-Xa Level POC ABG pH POC ABG pCO2 POC ABG pO2 Sodium 148 H Potassium 2.9 L* Chloride 109.4 H Carbon Dioxide BUN 26 H Creatinine Glucose 140 H POC Glucose Calcium 7.5 L Phosphorus Magnesium AST Alkaline Phosphatase C-Reactive Protein Total Protein Albumin Lipase Vitamin B12 976.8 H TSH Urine WBC (Auto) Urine Chloride Urine Total Protein Vancomycin Trough Crossmatch 10/22/16 10/22/16 10/22/16 10:25 14:50 18:16 WBC RBC Hgb Hct MCV RDW Plt Count Lymph % (Auto) Andrew % (Auto) Andrew # Seg Neutrophils % Seg Neuts % (Manual) Lymphocytes % (Manual) Monocytes % (Manual) Basophils % (Manual) Nucleated RBC % Seg Neutrophils # Seg Neutrophils # Man Lymphocytes # (Manual) Monocytes # (Manual) Eosinophils # (Manual) Basophils # (Manual) PT INR APTT Heparin Anti-Xa Level POC ABG pH POC ABG pCO2 POC ABG pO2 Sodium Potassium Chloride Carbon Dioxide BUN Creatinine Glucose POC Glucose 193 H Calcium Phosphorus Magnesium AST Alkaline Phosphatase C-Reactive Protein Total Protein Albumin Lipase Vitamin B12 TSH 0.143 L 0.162 L Urine WBC (Auto) Urine Chloride Urine Total Protein Vancomycin Trough Crossmatch 10/22/16 10/22/16 10/22/16 20:00 20:00 20:00 WBC 24.1 H RBC 2.58 L Hgb 8.2 L Hct 26.4 L MCV 102 H RDW Plt Count Lymph % (Auto) Andrew % (Auto) Andrew # Seg Neutrophils % Seg Neuts % (Manual) 74.0 H Lymphocytes % (Manual) 7.0 L Monocytes % (Manual) Basophils % (Manual) Nucleated RBC % Seg Neutrophils # Seg Neutrophils # Man 17.8 H Lymphocytes # (Manual) Monocytes # (Manual) Eosinophils # (Manual) Basophils # (Manual) PT INR APTT Heparin Anti-Xa Level 1.92 H POC ABG pH POC ABG pCO2 POC ABG pO2 Sodium Potassium Chloride Carbon Dioxide BUN Creatinine Glucose POC Glucose Calcium Phosphorus Magnesium AST Alkaline Phosphatase C-Reactive Protein Total Protein Albumin Lipase Vitamin B12 TSH Urine WBC (Auto) Urine Chloride Urine Total Protein Vancomycin Trough Crossmatch See Detail 10/23/16 10/23/16 10/23/16 00:21 06:09 12:07 WBC RBC Hgb Hct MCV RDW Plt Count Lymph % (Auto) Andrew % (Auto) Andrew # Seg Neutrophils % Seg Neuts % (Manual) Lymphocytes % (Manual) Monocytes % (Manual) Basophils % (Manual) Nucleated RBC % Seg Neutrophils # Seg Neutrophils # Man Lymphocytes # (Manual) Monocytes # (Manual) Eosinophils # (Manual) Basophils # (Manual) PT INR APTT Heparin Anti-Xa Level POC ABG pH POC ABG pCO2 POC ABG pO2 Sodium Potassium Chloride Carbon Dioxide BUN Creatinine Glucose POC Glucose 283 H 241 H 340 H Calcium Phosphorus Magnesium AST Alkaline Phosphatase C-Reactive Protein Total Protein Albumin Lipase Vitamin B12 TSH Urine WBC (Auto) Urine Chloride Urine Total Protein Vancomycin Trough Crossmatch 10/23/16 10/23/16 10/23/16 14:01 16:00 17:59 WBC RBC Hgb Hct MCV RDW Plt Count Lymph % (Auto) Andrew % (Auto) Andrew # Seg Neutrophils % Seg Neuts % (Manual) Lymphocytes % (Manual) Monocytes % (Manual) Basophils % (Manual) Nucleated RBC % Seg Neutrophils # Seg Neutrophils # Man Lymphocytes # (Manual) Monocytes # (Manual) Eosinophils # (Manual) Basophils # (Manual) PT INR APTT Heparin Anti-Xa Level 0.19 L POC ABG pH POC ABG pCO2 32.4 L POC ABG pO2 Sodium Potassium Chloride Carbon Dioxide BUN Creatinine Glucose POC Glucose 245 H Calcium Phosphorus Magnesium AST Alkaline Phosphatase C-Reactive Protein Total Protein Albumin Lipase Vitamin B12 TSH Urine WBC (Auto) Urine Chloride Urine Total Protein Vancomycin Trough Crossmatch 10/23/16 10/23/16 10/23/16 22:55 Unknown Unknown WBC 22.6 H RBC 3.26 L Hgb Hct MCV RDW 17.1 H Plt Count Lymph % (Auto) Andrew % (Auto) Andrew # Seg Neutrophils % Seg Neuts % (Manual) Lymphocytes % (Manual) 11.0 L Monocytes % (Manual) Basophils % (Manual) Nucleated RBC % Seg Neutrophils # Seg Neutrophils # Man 14.0 H Lymphocytes # (Manual) Monocytes # (Manual) Eosinophils # (Manual) Basophils # (Manual) PT INR APTT Heparin Anti-Xa Level 0.17 L 0.15 L POC ABG pH POC ABG pCO2 POC ABG pO2 Sodium Potassium Chloride Carbon Dioxide BUN Creatinine Glucose POC Glucose Calcium Phosphorus Magnesium AST Alkaline Phosphatase C-Reactive Protein Total Protein Albumin Lipase Vitamin B12 TSH Urine WBC (Auto) Urine Chloride Urine Total Protein Vancomycin Trough Crossmatch 10/23/16 10/24/16 10/24/16 Unknown 00:05 05:30 WBC RBC Hgb Hct MCV RDW Plt Count Lymph % (Auto) Andrew % (Auto) Andrew # Seg Neutrophils % Seg Neuts % (Manual) Lymphocytes % (Manual) Monocytes % (Manual) Basophils % (Manual) Nucleated RBC % Seg Neutrophils # Seg Neutrophils # Man Lymphocytes # (Manual) Monocytes # (Manual) Eosinophils # (Manual) Basophils # (Manual) PT INR APTT Heparin Anti-Xa Level 0.13 L POC ABG pH POC ABG pCO2 POC ABG pO2 Sodium Potassium Chloride 111.2 H Carbon Dioxide 20 L BUN 25 H Creatinine Glucose 227 H POC Glucose 118 H Calcium 7.1 L Phosphorus Magnesium AST Alkaline Phosphatase C-Reactive Protein Total Protein Albumin Lipase Vitamin B12 TSH Urine WBC (Auto) Urine Chloride Urine Total Protein Vancomycin Trough Crossmatch 10/24/16 10/24/16 10/24/16 11:00 11:00 12:06 WBC 17.6 H RBC 2.92 L Hgb 9.2 L Hct 28.3 L MCV RDW 16.9 H Plt Count Lymph % (Auto) Andrew % (Auto) Andrew # Seg Neutrophils % Seg Neuts % (Manual) Lymphocytes % (Manual) Monocytes % (Manual) Basophils % (Manual) Nucleated RBC % Seg Neutrophils # Seg Neutrophils # Man Lymphocytes # (Manual) Monocytes # (Manual) Eosinophils # (Manual) Basophils # (Manual) PT INR APTT Heparin Anti-Xa Level 0.27 L POC ABG pH POC ABG pCO2 POC ABG pO2 Sodium Potassium Chloride Carbon Dioxide BUN Creatinine Glucose POC Glucose 166 H Calcium Phosphorus Magnesium AST Alkaline Phosphatase C-Reactive Protein Total Protein Albumin Lipase Vitamin B12 TSH Urine WBC (Auto) Urine Chloride Urine Total Protein Vancomycin Trough Crossmatch 10/24/16 10/25/16 10/25/16 12:27 00:49 03:30 WBC RBC Hgb 8.8 L Hct 28.1 L MCV RDW Plt Count Lymph % (Auto) Andrew % (Auto) Andrew # Seg Neutrophils % Seg Neuts % (Manual) Lymphocytes % (Manual) Monocytes % (Manual) Basophils % (Manual) Nucleated RBC % Seg Neutrophils # Seg Neutrophils # Man Lymphocytes # (Manual) Monocytes # (Manual) Eosinophils # (Manual) Basophils # (Manual) PT INR APTT Heparin Anti-Xa Level POC ABG pH POC ABG pCO2 33.9 L POC ABG pO2 Sodium Potassium Chloride Carbon Dioxide BUN Creatinine Glucose POC Glucose 121 H Calcium Phosphorus Magnesium AST Alkaline Phosphatase C-Reactive Protein Total Protein Albumin Lipase Vitamin B12 TSH Urine WBC (Auto) Urine Chloride Urine Total Protein Vancomycin Trough Crossmatch 10/25/16 10/25/16 10/25/16 09:49 12:10 19:25 WBC 21.1 H RBC 3.02 L Hgb 9.3 L Hct 28.9 L MCV RDW 16.3 H Plt Count Lymph % (Auto) Andrew % (Auto) Andrew # Seg Neutrophils % Seg Neuts % (Manual) 81.0 H Lymphocytes % (Manual) 9.0 L Monocytes % (Manual) Basophils % (Manual) Nucleated RBC % Seg Neutrophils # Seg Neutrophils # Man 17.1 H Lymphocytes # (Manual) Monocytes # (Manual) Eosinophils # (Manual) Basophils # (Manual) PT INR APTT Heparin Anti-Xa Level POC ABG pH POC ABG pCO2 POC ABG pO2 Sodium Potassium Chloride Carbon Dioxide BUN Creatinine Glucose POC Glucose 158 H 151 H Calcium Phosphorus Magnesium AST Alkaline Phosphatase C-Reactive Protein Total Protein Albumin Lipase Vitamin B12 TSH Urine WBC (Auto) Urine Chloride Urine Total Protein Vancomycin Trough Crossmatch 10/26/16 10/26/16 10/26/16 00:20 01:09 05:02 WBC 22.2 H RBC 2.89 L Hgb 8.7 L Hct 27.8 L MCV RDW 16.4 H Plt Count Lymph % (Auto) Andrew % (Auto) Andrew # Seg Neutrophils % Seg Neuts % (Manual) Lymphocytes % (Manual) Monocytes % (Manual) Basophils % (Manual) Nucleated RBC % Seg Neutrophils # Seg Neutrophils # Man Lymphocytes # (Manual) Monocytes # (Manual) Eosinophils # (Manual) Basophils # (Manual) PT INR APTT Heparin Anti-Xa Level POC ABG pH POC ABG pCO2 POC ABG pO2 Sodium Potassium Chloride Carbon Dioxide BUN Creatinine Glucose POC Glucose 44 L 112 H Calcium Phosphorus Magnesium AST Alkaline Phosphatase C-Reactive Protein Total Protein Albumin Lipase Vitamin B12 TSH Urine WBC (Auto) Urine Chloride Urine Total Protein Vancomycin Trough Crossmatch 10/26/16 10/26/16 10/26/16 05:02 12:11 12:14 WBC RBC Hgb Hct MCV RDW Plt Count Lymph % (Auto) Andrew % (Auto) Andrew # Seg Neutrophils % Seg Neuts % (Manual) Lymphocytes % (Manual) Monocytes % (Manual) Basophils % (Manual) Nucleated RBC % Seg Neutrophils # Seg Neutrophils # Man Lymphocytes # (Manual) Monocytes # (Manual) Eosinophils # (Manual) Basophils # (Manual) PT INR APTT Heparin Anti-Xa Level POC ABG pH POC ABG pCO2 32.0 L POC ABG pO2 33 L Sodium Potassium 3.2 L D Chloride Carbon Dioxide 20 L BUN 24 H Creatinine Glucose 104 H POC Glucose 194 H Calcium 7.7 L Phosphorus Magnesium AST Alkaline Phosphatase C-Reactive Protein Total Protein Albumin Lipase Vitamin B12 TSH Urine WBC (Auto) Urine Chloride Urine Total Protein Vancomycin Trough Crossmatch 10/26/16 10/26/16 10/27/16 15:28 17:23 00:04 WBC RBC Hgb Hct MCV RDW Plt Count Lymph % (Auto) Andrew % (Auto) Andrew # Seg Neutrophils % Seg Neuts % (Manual) Lymphocytes % (Manual) Monocytes % (Manual) Basophils % (Manual) Nucleated RBC % Seg Neutrophils # Seg Neutrophils # Man Lymphocytes # (Manual) Monocytes # (Manual) Eosinophils # (Manual) Basophils # (Manual) PT INR APTT Heparin Anti-Xa Level POC ABG pH POC ABG pCO2 33.7 L POC ABG pO2 Sodium Potassium Chloride Carbon Dioxide BUN Creatinine Glucose POC Glucose 181 H 230 H Calcium Phosphorus Magnesium AST Alkaline Phosphatase C-Reactive Protein Total Protein Albumin Lipase Vitamin B12 TSH Urine WBC (Auto) Urine Chloride Urine Total Protein Vancomycin Trough Crossmatch 10/27/16 10/27/16 10/27/16 05:15 05:15 05:38 WBC 25.5 H RBC 3.07 L Hgb 9.4 L Hct 30.1 L MCV 98 H RDW 16.4 H Plt Count 527 H Lymph % (Auto) Andrew % (Auto) Andrew # Seg Neutrophils % Seg Neuts % (Manual) Lymphocytes % (Manual) Monocytes % (Manual) Basophils % (Manual) Nucleated RBC % Seg Neutrophils # Seg Neutrophils # Man Lymphocytes # (Manual) Monocytes # (Manual) Eosinophils # (Manual) Basophils # (Manual) PT INR APTT Heparin Anti-Xa Level POC ABG pH POC ABG pCO2 POC ABG pO2 Sodium Potassium Chloride Carbon Dioxide 19 L BUN 23 H Creatinine Glucose 160 H POC Glucose 168 H Calcium 8.0 L Phosphorus Magnesium AST Alkaline Phosphatase C-Reactive Protein Total Protein Albumin Lipase Vitamin B12 TSH Urine WBC (Auto) Urine Chloride Urine Total Protein Vancomycin Trough Crossmatch 10/27/16 10/27/16 10/27/16 11:59 18:35 23:48 WBC RBC Hgb Hct MCV RDW Plt Count Lymph % (Auto) Andrew % (Auto) Andrew # Seg Neutrophils % Seg Neuts % (Manual) Lymphocytes % (Manual) Monocytes % (Manual) Basophils % (Manual) Nucleated RBC % Seg Neutrophils # Seg Neutrophils # Man Lymphocytes # (Manual) Monocytes # (Manual) Eosinophils # (Manual) Basophils # (Manual) PT INR APTT Heparin Anti-Xa Level POC ABG pH POC ABG pCO2 POC ABG pO2 Sodium Potassium Chloride Carbon Dioxide BUN Creatinine Glucose POC Glucose 197 H 318 H 316 H Calcium Phosphorus Magnesium AST Alkaline Phosphatase C-Reactive Protein Total Protein Albumin Lipase Vitamin B12 TSH Urine WBC (Auto) Urine Chloride Urine Total Protein Vancomycin Trough Crossmatch 10/28/16 10/28/16 10/28/16 03:13 04:10 04:10 WBC 18.8 H RBC 2.64 L Hgb 8.1 L Hct 26.1 L MCV 99 H RDW 16.2 H Plt Count 544 H Lymph % (Auto) Andrew % (Auto) Andrew # Seg Neutrophils % Seg Neuts % (Manual) Lymphocytes % (Manual) Monocytes % (Manual) Basophils % (Manual) Nucleated RBC % Seg Neutrophils # Seg Neutrophils # Man Lymphocytes # (Manual) Monocytes # (Manual) Eosinophils # (Manual) Basophils # (Manual) PT INR APTT Heparin Anti-Xa Level POC ABG pH POC ABG pCO2 POC ABG pO2 Sodium Potassium Chloride Carbon Dioxide 21 L BUN 24 H Creatinine Glucose 302 H POC Glucose 304 H Calcium 7.7 L Phosphorus Magnesium AST Alkaline Phosphatase C-Reactive Protein Total Protein Albumin Lipase Vitamin B12 TSH Urine WBC (Auto) Urine Chloride Urine Total Protein Vancomycin Trough Crossmatch 10/28/16 10/28/16 10/28/16 04:10 12:36 18:27 WBC RBC Hgb Hct MCV RDW Plt Count Lymph % (Auto) Andrew % (Auto) Andrew # Seg Neutrophils % Seg Neuts % (Manual) Lymphocytes % (Manual) Monocytes % (Manual) Basophils % (Manual) Nucleated RBC % Seg Neutrophils # Seg Neutrophils # Man Lymphocytes # (Manual) Monocytes # (Manual) Eosinophils # (Manual) Basophils # (Manual) PT INR APTT Heparin Anti-Xa Level 0.20 L POC ABG pH POC ABG pCO2 POC ABG pO2 Sodium Potassium Chloride Carbon Dioxide BUN Creatinine Glucose POC Glucose 205 H 339 H Calcium Phosphorus Magnesium AST Alkaline Phosphatase C-Reactive Protein Total Protein Albumin Lipase Vitamin B12 TSH Urine WBC (Auto) Urine Chloride Urine Total Protein Vancomycin Trough Crossmatch 10/29/16 10/29/16 10/29/16 01:05 06:19 09:30 WBC 20.3 H RBC 2.80 L Hgb 8.5 L Hct 26.7 L MCV RDW 15.4 H Plt Count 571 H Lymph % (Auto) Andrew % (Auto) Andrew # Seg Neutrophils % Seg Neuts % (Manual) 75.0 H Lymphocytes % (Manual) 4.0 L Monocytes % (Manual) Basophils % (Manual) Nucleated RBC % Seg Neutrophils # Seg Neutrophils # Man 15.2 H Lymphocytes # (Manual) 0.8 L Monocytes # (Manual) Eosinophils # (Manual) Basophils # (Manual) PT INR APTT Heparin Anti-Xa Level POC ABG pH POC ABG pCO2 POC ABG pO2 Sodium Potassium Chloride Carbon Dioxide BUN Creatinine Glucose POC Glucose 275 H 179 H Calcium Phosphorus Magnesium AST Alkaline Phosphatase C-Reactive Protein Total Protein Albumin Lipase Vitamin B12 TSH Urine WBC (Auto) Urine Chloride Urine Total Protein Vancomycin Trough Crossmatch 10/29/16 10/29/16 10/29/16 11:46 15:18 17:55 WBC RBC Hgb Hct MCV RDW Plt Count Lymph % (Auto) Andrew % (Auto) Andrew # Seg Neutrophils % Seg Neuts % (Manual) Lymphocytes % (Manual) Monocytes % (Manual) Basophils % (Manual) Nucleated RBC % Seg Neutrophils # Seg Neutrophils # Man Lymphocytes # (Manual) Monocytes # (Manual) Eosinophils # (Manual) Basophils # (Manual) PT INR APTT Heparin Anti-Xa Level 1.15 H POC ABG pH POC ABG pCO2 POC ABG pO2 Sodium Potassium Chloride Carbon Dioxide BUN Creatinine Glucose POC Glucose 122 H 255 H Calcium Phosphorus Magnesium AST Alkaline Phosphatase C-Reactive Protein Total Protein Albumin Lipase Vitamin B12 TSH Urine WBC (Auto) Urine Chloride Urine Total Protein Vancomycin Trough Crossmatch 10/30/16 10/30/16 10/30/16 00:10 05:30 05:30 WBC 19.8 H RBC 2.51 L Hgb 7.7 L Hct 24.1 L MCV RDW 15.5 H Plt Count 534 H Lymph % (Auto) Andrew % (Auto) Andrew # Seg Neutrophils % Seg Neuts % (Manual) Lymphocytes % (Manual) Monocytes % (Manual) Basophils % (Manual) Nucleated RBC % Seg Neutrophils # Seg Neutrophils # Man Lymphocytes # (Manual) Monocytes # (Manual) Eosinophils # (Manual) Basophils # (Manual) PT INR APTT Heparin Anti-Xa Level POC ABG pH POC ABG pCO2 POC ABG pO2 Sodium Potassium Chloride Carbon Dioxide BUN Creatinine Glucose 211 H POC Glucose 202 H Calcium 7.4 L Phosphorus Magnesium AST Alkaline Phosphatase C-Reactive Protein Total Protein Albumin Lipase Vitamin B12 TSH Urine WBC (Auto) Urine Chloride Urine Total Protein Vancomycin Trough Crossmatch 10/30/16 10/30/16 10/30/16 06:32 12:51 17:47 WBC RBC Hgb Hct MCV RDW Plt Count Lymph % (Auto) Andrew % (Auto) Andrew # Seg Neutrophils % Seg Neuts % (Manual) Lymphocytes % (Manual) Monocytes % (Manual) Basophils % (Manual) Nucleated RBC % Seg Neutrophils # Seg Neutrophils # Man Lymphocytes # (Manual) Monocytes # (Manual) Eosinophils # (Manual) Basophils # (Manual) PT INR APTT Heparin Anti-Xa Level POC ABG pH POC ABG pCO2 POC ABG pO2 Sodium Potassium Chloride Carbon Dioxide BUN Creatinine Glucose POC Glucose 207 H 218 H 169 H Calcium Phosphorus Magnesium AST Alkaline Phosphatase C-Reactive Protein Total Protein Albumin Lipase Vitamin B12 TSH Urine WBC (Auto) Urine Chloride Urine Total Protein Vancomycin Trough Crossmatch 10/30/16 10/31/16 10/31/16 23:59 05:25 11:21 WBC RBC Hgb Hct MCV RDW Plt Count Lymph % (Auto) Andrew % (Auto) Andrew # Seg Neutrophils % Seg Neuts % (Manual) Lymphocytes % (Manual) Monocytes % (Manual) Basophils % (Manual) Nucleated RBC % Seg Neutrophils # Seg Neutrophils # Man Lymphocytes # (Manual) Monocytes # (Manual) Eosinophils # (Manual) Basophils # (Manual) PT INR APTT Heparin Anti-Xa Level POC ABG pH POC ABG pCO2 POC ABG pO2 Sodium Potassium Chloride Carbon Dioxide BUN Creatinine Glucose POC Glucose 138 H 127 H 132 H Calcium Phosphorus Magnesium AST Alkaline Phosphatase C-Reactive Protein Total Protein Albumin Lipase Vitamin B12 TSH Urine WBC (Auto) Urine Chloride Urine Total Protein Vancomycin Trough Crossmatch 10/31/16 10/31/16 11/01/16 17:07 23:54 05:47 WBC RBC Hgb Hct MCV RDW Plt Count Lymph % (Auto) Andrew % (Auto) Andrew # Seg Neutrophils % Seg Neuts % (Manual) Lymphocytes % (Manual) Monocytes % (Manual) Basophils % (Manual) Nucleated RBC % Seg Neutrophils # Seg Neutrophils # Man Lymphocytes # (Manual) Monocytes # (Manual) Eosinophils # (Manual) Basophils # (Manual) PT INR APTT Heparin Anti-Xa Level POC ABG pH POC ABG pCO2 POC ABG pO2 Sodium Potassium Chloride Carbon Dioxide BUN Creatinine Glucose POC Glucose 138 H 153 H 150 H Calcium Phosphorus Magnesium AST Alkaline Phosphatase C-Reactive Protein Total Protein Albumin Lipase Vitamin B12 TSH Urine WBC (Auto) Urine Chloride Urine Total Protein Vancomycin Trough Crossmatch 11/01/16 11/01/16 11/01/16 06:33 06:33 12:16 WBC 19.2 H RBC 2.51 L Hgb 7.9 L Hct 24.8 L MCV 99 H D RDW 16.1 H Plt Count 569 H Lymph % (Auto) Andrew % (Auto) Andrew # Seg Neutrophils % Seg Neuts % (Manual) Lymphocytes % (Manual) Monocytes % (Manual) Basophils % (Manual) Nucleated RBC % Seg Neutrophils # Seg Neutrophils # Man Lymphocytes # (Manual) Monocytes # (Manual) Eosinophils # (Manual) Basophils # (Manual) PT INR APTT Heparin Anti-Xa Level POC ABG pH POC ABG pCO2 POC ABG pO2 Sodium Potassium 3.5 L Chloride Carbon Dioxide 21 L BUN Creatinine Glucose 137 H POC Glucose 125 H Calcium 7.7 L Phosphorus Magnesium AST Alkaline Phosphatase 148 H C-Reactive Protein Total Protein 6.2 L Albumin 2.0 L Lipase Vitamin B12 TSH Urine WBC (Auto) Urine Chloride Urine Total Protein Vancomycin Trough Crossmatch 03/11/02/16 11/02/16 17:37 00:05 04:15 WBC RBC Hgb Hct MCV RDW Plt Count Lymph % (Auto) Andrew % (Auto) Andrew # Seg Neutrophils % Seg Neuts % (Manual) Lymphocytes % (Manual) Monocytes % (Manual) Basophils % (Manual) Nucleated RBC % Seg Neutrophils # Seg Neutrophils # Man Lymphocytes # (Manual) Monocytes # (Manual) Eosinophils # (Manual) Basophils # (Manual) PT INR APTT Heparin Anti-Xa Level < 0.10 L POC ABG pH POC ABG pCO2 POC ABG pO2 Sodium Potassium 3.2 L Chloride Carbon Dioxide BUN 6 L Creatinine Glucose 135 H POC Glucose 164 H Calcium 7.5 L Phosphorus Magnesium AST Alkaline Phosphatase 132 H C-Reactive Protein Total Protein 6.2 L Albumin 1.8 L Lipase Vitamin B12 TSH Urine WBC (Auto) Urine Chloride Urine Total Protein Vancomycin Trough Crossmatch 11/02/16 11/02/16 11/02/16 04:15 05:54 12:15 WBC 17.7 H RBC 2.43 L Hgb 7.6 L Hct 23.5 L MCV RDW 15.9 H Plt Count 502 H Lymph % (Auto) Andrew % (Auto) Andrew # Seg Neutrophils % Seg Neuts % (Manual) 84.0 H Lymphocytes % (Manual) 11.0 L Monocytes % (Manual) Basophils % (Manual) Nucleated RBC % 1.0 H Seg Neutrophils # Seg Neutrophils # Man 14.9 H Lymphocytes # (Manual) Monocytes # (Manual) Eosinophils # (Manual) Basophils # (Manual) PT INR APTT Heparin Anti-Xa Level POC ABG pH POC ABG pCO2 POC ABG pO2 Sodium Potassium Chloride Carbon Dioxide BUN Creatinine Glucose POC Glucose 152 H 137 H Calcium Phosphorus Magnesium AST Alkaline Phosphatase C-Reactive Protein Total Protein Albumin Lipase Vitamin B12 TSH Urine WBC (Auto) Urine Chloride Urine Total Protein Vancomycin Trough Crossmatch 11/02/16 11/03/16 11/03/16 17:00 00:05 00:05 WBC RBC Hgb Hct MCV RDW Plt Count Lymph % (Auto) Andrew % (Auto) Andrew # Seg Neutrophils % Seg Neuts % (Manual) Lymphocytes % (Manual) Monocytes % (Manual) Basophils % (Manual) Nucleated RBC % Seg Neutrophils # Seg Neutrophils # Man Lymphocytes # (Manual) Monocytes # (Manual) Eosinophils # (Manual) Basophils # (Manual) PT INR APTT Heparin Anti-Xa Level POC ABG pH POC ABG pCO2 POC ABG pO2 Sodium Potassium Chloride Carbon Dioxide 20 L BUN 5 L Creatinine Glucose 139 H POC Glucose 161 H Calcium 6.7 L Phosphorus Magnesium 1.2 L AST Alkaline Phosphatase C-Reactive Protein Total Protein Albumin Lipase Vitamin B12 TSH Urine WBC (Auto) Urine Chloride Urine Total Protein Vancomycin Trough Crossmatch 11/03/16 11/03/16 11/03/16 00:05 02:05 04:23 WBC 15.9 H 14.0 H RBC 1.93 L 2.38 L Hgb 5.9 L* 7.3 L Hct 18.9 L* 23.1 L MCV 98 H RDW 15.9 H 15.9 H Plt Count Lymph % (Auto) Andrew % (Auto) Andrew # Seg Neutrophils % Seg Neuts % (Manual) 85.0 H Lymphocytes % (Manual) 4.0 L Monocytes % (Manual) Basophils % (Manual) Nucleated RBC % Seg Neutrophils # Seg Neutrophils # Man 13.5 H Lymphocytes # (Manual) 0.6 L Monocytes # (Manual) Eosinophils # (Manual) Basophils # (Manual) PT INR APTT Heparin Anti-Xa Level POC ABG pH POC ABG pCO2 POC ABG pO2 Sodium Potassium Chloride Carbon Dioxide BUN 5 L Creatinine Glucose 127 H POC Glucose Calcium 7.2 L Phosphorus Magnesium AST Alkaline Phosphatase C-Reactive Protein Total Protein 5.8 L Albumin 1.5 L Lipase Vitamin B12 TSH Urine WBC (Auto) Urine Chloride Urine Total Protein Vancomycin Trough Crossmatch 11/03/16 11/03/16 11/03/16 09:14 09:27 11:54 WBC RBC Hgb Hct MCV RDW Plt Count Lymph % (Auto) Andrew % (Auto) Andrew # Seg Neutrophils % Seg Neuts % (Manual) Lymphocytes % (Manual) Monocytes % (Manual) Basophils % (Manual) Nucleated RBC % Seg Neutrophils # Seg Neutrophils # Man Lymphocytes # (Manual) Monocytes # (Manual) Eosinophils # (Manual) Basophils # (Manual) PT INR APTT Heparin Anti-Xa Level 0.11 L POC ABG pH POC ABG pCO2 POC ABG pO2 Sodium Potassium Chloride Carbon Dioxide BUN 5 L Creatinine Glucose 111 H POC Glucose 139 H Calcium 6.7 L Phosphorus Magnesium AST Alkaline Phosphatase C-Reactive Protein Total Protein Albumin Lipase Vitamin B12 TSH Urine WBC (Auto) Urine Chloride Urine Total Protein Vancomycin Trough Crossmatch 11/03/16 11/03/16 11/03/16 16:26 18:01 18:01 WBC RBC Hgb Hct MCV RDW Plt Count Lymph % (Auto) Andrew % (Auto) Andrew # Seg Neutrophils % Seg Neuts % (Manual) Lymphocytes % (Manual) Monocytes % (Manual) Basophils % (Manual) Nucleated RBC % Seg Neutrophils # Seg Neutrophils # Man Lymphocytes # (Manual) Monocytes # (Manual) Eosinophils # (Manual) Basophils # (Manual) PT INR APTT Heparin Anti-Xa Level 2.00 H POC ABG pH POC ABG pCO2 POC ABG pO2 Sodium Potassium Chloride Carbon Dioxide BUN Creatinine Glucose POC Glucose 142 H Calcium Phosphorus Magnesium AST Alkaline Phosphatase C-Reactive Protein Total Protein Albumin Lipase Vitamin B12 TSH Urine WBC (Auto) Urine Chloride Urine Total Protein Vancomycin Trough Crossmatch See Detail 11/04/16 11/04/16 11/04/16 02:15 02:15 06:35 WBC 11.8 H RBC 2.39 L Hgb 7.4 L Hct 23.1 L MCV RDW 15.9 H Plt Count Lymph % (Auto) Andrew % (Auto) Andrew # Seg Neutrophils % Seg Neuts % (Manual) 76.0 H Lymphocytes % (Manual) 12.0 L Monocytes % (Manual) 9.0 H Basophils % (Manual) Nucleated RBC % Seg Neutrophils # Seg Neutrophils # Man 9.0 H Lymphocytes # (Manual) Monocytes # (Manual) 1.1 H Eosinophils # (Manual) Basophils # (Manual) PT INR APTT Heparin Anti-Xa Level < 0.10 L POC ABG pH POC ABG pCO2 POC ABG pO2 Sodium Potassium Chloride Carbon Dioxide 21 L BUN 5 L Creatinine Glucose 112 H POC Glucose Calcium 6.8 L Phosphorus Magnesium AST Alkaline Phosphatase C-Reactive Protein Total Protein 5.7 L Albumin 1.7 L Lipase Vitamin B12 TSH Urine WBC (Auto) Urine Chloride Urine Total Protein Vancomycin Trough Crossmatch 11/04/16 11/04/16 11/04/16 10:51 12:58 15:04 WBC RBC Hgb Hct MCV RDW Plt Count Lymph % (Auto) Andrew % (Auto) Andrew # Seg Neutrophils % Seg Neuts % (Manual) Lymphocytes % (Manual) Monocytes % (Manual) Basophils % (Manual) Nucleated RBC % Seg Neutrophils # Seg Neutrophils # Man Lymphocytes # (Manual) Monocytes # (Manual) Eosinophils # (Manual) Basophils # (Manual) PT INR APTT Heparin Anti-Xa Level 1.05 H POC ABG pH POC ABG pCO2 33.7 L POC ABG pO2 60 L Sodium Potassium Chloride Carbon Dioxide BUN Creatinine Glucose POC Glucose 118 H Calcium Phosphorus Magnesium AST Alkaline Phosphatase C-Reactive Protein Total Protein Albumin Lipase Vitamin B12 TSH Urine WBC (Auto) Urine Chloride Urine Total Protein Vancomycin Trough Crossmatch 11/04/16 11/04/16 11/05/16 17:20 20:31 02:30 WBC RBC Hgb Hct MCV RDW Plt Count Lymph % (Auto) Andrew % (Auto) Andrew # Seg Neutrophils % Seg Neuts % (Manual) Lymphocytes % (Manual) Monocytes % (Manual) Basophils % (Manual) Nucleated RBC % Seg Neutrophils # Seg Neutrophils # Man Lymphocytes # (Manual) Monocytes # (Manual) Eosinophils # (Manual) Basophils # (Manual) PT INR APTT Heparin Anti-Xa Level POC ABG pH POC ABG pCO2 POC ABG pO2 Sodium Potassium 3.5 L Chloride Carbon Dioxide 18 L BUN 5 L Creatinine 0.6 L Glucose 110 H POC Glucose 228 H 169 H Calcium 7.1 L Phosphorus Magnesium AST Alkaline Phosphatase C-Reactive Protein Total Protein Albumin 1.9 L Lipase Vitamin B12 TSH Urine WBC (Auto) Urine Chloride Urine Total Protein Vancomycin Trough Crossmatch 11/05/16 11/05/16 11/05/16 02:30 17:52 21:07 WBC 14.1 H RBC Hgb Hct MCV RDW 16.7 H Plt Count Lymph % (Auto) Andrew % (Auto) Andrew # Seg Neutrophils % Seg Neuts % (Manual) 80.0 H Lymphocytes % (Manual) 6.0 L Monocytes % (Manual) 8.0 H Basophils % (Manual) Nucleated RBC % Seg Neutrophils # Seg Neutrophils # Man 11.3 H Lymphocytes # (Manual) 0.8 L Monocytes # (Manual) 1.1 H Eosinophils # (Manual) Basophils # (Manual) PT INR APTT Heparin Anti-Xa Level < 0.10 L POC ABG pH POC ABG pCO2 POC ABG pO2 Sodium Potassium Chloride Carbon Dioxide BUN Creatinine Glucose POC Glucose 174 H Calcium Phosphorus Magnesium AST Alkaline Phosphatase C-Reactive Protein Total Protein Albumin Lipase Vitamin B12 TSH Urine WBC (Auto) Urine Chloride Urine Total Protein Vancomycin Trough Crossmatch 11/05/16 11/06/16 11/06/16 23:30 05:00 05:00 WBC 15.2 H RBC 3.29 L Hgb 10.0 L Hct MCV RDW 16.9 H Plt Count Lymph % (Auto) Andrew % (Auto) Andrew # Seg Neutrophils % Seg Neuts % (Manual) Lymphocytes % (Manual) Monocytes % (Manual) Basophils % (Manual) Nucleated RBC % Seg Neutrophils # Seg Neutrophils # Man Lymphocytes # (Manual) Monocytes # (Manual) Eosinophils # (Manual) Basophils # (Manual) PT INR APTT Heparin Anti-Xa Level 0.94 H POC ABG pH POC ABG pCO2 POC ABG pO2 Sodium Potassium Chloride Carbon Dioxide BUN Creatinine Glucose POC Glucose 131 H Calcium Phosphorus Magnesium AST Alkaline Phosphatase C-Reactive Protein Total Protein Albumin Lipase Vitamin B12 TSH Urine WBC (Auto) Urine Chloride Urine Total Protein Vancomycin Trough Crossmatch 11/06/16 11/06/16 11/06/16 05:00 11:45 18:23 WBC RBC Hgb Hct MCV RDW Plt Count Lymph % (Auto) Andrew % (Auto) Andrew # Seg Neutrophils % Seg Neuts % (Manual) Lymphocytes % (Manual) Monocytes % (Manual) Basophils % (Manual) Nucleated RBC % Seg Neutrophils # Seg Neutrophils # Man Lymphocytes # (Manual) Monocytes # (Manual) Eosinophils # (Manual) Basophils # (Manual) PT INR APTT Heparin Anti-Xa Level POC ABG pH POC ABG pCO2 POC ABG pO2 Sodium Potassium 3.5 L Chloride 107.1 H Carbon Dioxide 20 L BUN 4 L Creatinine 0.6 L Glucose 104 H POC Glucose 141 H 255 H Calcium 6.7 L Phosphorus Magnesium AST Alkaline Phosphatase C-Reactive Protein Total Protein Albumin Lipase Vitamin B12 TSH Urine WBC (Auto) Urine Chloride Urine Total Protein Vancomycin Trough Crossmatch 11/06/16 11/06/16 11/07/16 22:07 23:07 11:41 WBC RBC Hgb Hct MCV RDW Plt Count Lymph % (Auto) Andrew % (Auto) Andrew # Seg Neutrophils % Seg Neuts % (Manual) Lymphocytes % (Manual) Monocytes % (Manual) Basophils % (Manual) Nucleated RBC % Seg Neutrophils # Seg Neutrophils # Man Lymphocytes # (Manual) Monocytes # (Manual) Eosinophils # (Manual) Basophils # (Manual) PT INR APTT Heparin Anti-Xa Level 0.80 H POC ABG pH POC ABG pCO2 POC ABG pO2 Sodium Potassium Chloride Carbon Dioxide BUN Creatinine Glucose POC Glucose 183 H 132 H Calcium Phosphorus Magnesium AST Alkaline Phosphatase C-Reactive Protein Total Protein Albumin Lipase Vitamin B12 TSH Urine WBC (Auto) Urine Chloride Urine Total Protein Vancomycin Trough Crossmatch 11/07/16 11/07/16 11/07/16 12:17 17:05 17:58 WBC RBC Hgb Hct MCV RDW Plt Count Lymph % (Auto) Andrew % (Auto) Andrew # Seg Neutrophils % Seg Neuts % (Manual) Lymphocytes % (Manual) Monocytes % (Manual) Basophils % (Manual) Nucleated RBC % Seg Neutrophils # Seg Neutrophils # Man Lymphocytes # (Manual) Monocytes # (Manual) Eosinophils # (Manual) Basophils # (Manual) PT INR APTT Heparin Anti-Xa Level 0.87 H POC ABG pH 7.324 L POC ABG pCO2 POC ABG pO2 Sodium Potassium Chloride Carbon Dioxide BUN Creatinine Glucose POC Glucose 158 H Calcium Phosphorus Magnesium AST Alkaline Phosphatase C-Reactive Protein Total Protein Albumin Lipase Vitamin B12 TSH Urine WBC (Auto) Urine Chloride Urine Total Protein Vancomycin Trough Crossmatch 11/07/16 11/07/16 11/07/16 23:26 Unknown Unknown WBC 12.3 H RBC 2.96 L Hgb 9.1 L Hct 27.9 L MCV RDW 16.8 H Plt Count Lymph % (Auto) Andrew % (Auto) Andrew # Seg Neutrophils % Seg Neuts % (Manual) 80.0 H Lymphocytes % (Manual) 7.0 L Monocytes % (Manual) Basophils % (Manual) Nucleated RBC % Seg Neutrophils # Seg Neutrophils # Man 9.8 H Lymphocytes # (Manual) 0.9 L Monocytes # (Manual) Eosinophils # (Manual) Basophils # (Manual) PT INR APTT Heparin Anti-Xa Level POC ABG pH POC ABG pCO2 POC ABG pO2 Sodium Potassium Chloride Carbon Dioxide 19 L BUN Creatinine Glucose 106 H POC Glucose 130 H Calcium 6.9 L Phosphorus Magnesium AST Alkaline Phosphatase C-Reactive Protein Total Protein Albumin Lipase Vitamin B12 TSH Urine WBC (Auto) Urine Chloride Urine Total Protein Vancomycin Trough Crossmatch 11/07/16 11/08/16 11/08/16 Unknown 05:14 05:20 WBC 12.4 H RBC 3.04 L Hgb 9.2 L Hct 28.8 L MCV RDW 16.6 H Plt Count Lymph % (Auto) Andrew % (Auto) Andrew # Seg Neutrophils % Seg Neuts % (Manual) 77.0 H Lymphocytes % (Manual) 5.0 L Monocytes % (Manual) Basophils % (Manual) 2.0 H Nucleated RBC % Seg Neutrophils # Seg Neutrophils # Man 9.5 H Lymphocytes # (Manual) 0.6 L Monocytes # (Manual) Eosinophils # (Manual) Basophils # (Manual) 0.2 H PT INR APTT Heparin Anti-Xa Level 0.90 H POC ABG pH POC ABG pCO2 POC ABG pO2 Sodium Potassium Chloride Carbon Dioxide BUN Creatinine Glucose POC Glucose 204 H Calcium Phosphorus Magnesium AST Alkaline Phosphatase C-Reactive Protein Total Protein Albumin Lipase Vitamin B12 TSH Urine WBC (Auto) Urine Chloride Urine Total Protein Vancomycin Trough Crossmatch 11/08/16 11/08/16 11/08/16 05:20 12:10 13:10 WBC RBC Hgb Hct MCV RDW Plt Count Lymph % (Auto) Andrew % (Auto) Andrew # Seg Neutrophils % Seg Neuts % (Manual) Lymphocytes % (Manual) Monocytes % (Manual) Basophils % (Manual) Nucleated RBC % Seg Neutrophils # Seg Neutrophils # Man Lymphocytes # (Manual) Monocytes # (Manual) Eosinophils # (Manual) Basophils # (Manual) PT INR APTT Heparin Anti-Xa Level POC ABG pH POC ABG pCO2 33.7 L POC ABG pO2 Sodium 136 L Potassium Chloride Carbon Dioxide 19 L BUN Creatinine Glucose 192 H POC Glucose 180 H Calcium 7.1 L Phosphorus Magnesium AST Alkaline Phosphatase C-Reactive Protein Total Protein Albumin Lipase Vitamin B12 TSH Urine WBC (Auto) Urine Chloride Urine Total Protein Vancomycin Trough Crossmatch 11/08/16 11/08/16 11/08/16 17:26 20:45 23:34 WBC RBC Hgb Hct MCV RDW Plt Count Lymph % (Auto) Andrew % (Auto) Andrew # Seg Neutrophils % Seg Neuts % (Manual) Lymphocytes % (Manual) Monocytes % (Manual) Basophils % (Manual) Nucleated RBC % Seg Neutrophils # Seg Neutrophils # Man Lymphocytes # (Manual) Monocytes # (Manual) Eosinophils # (Manual) Basophils # (Manual) PT INR APTT Heparin Anti-Xa Level POC ABG pH POC ABG pCO2 POC ABG pO2 Sodium Potassium Chloride Carbon Dioxide BUN Creatinine Glucose POC Glucose 187 H 178 H Calcium Phosphorus Magnesium AST Alkaline Phosphatase C-Reactive Protein Total Protein Albumin Lipase Vitamin B12 TSH Urine WBC (Auto) Urine Chloride Urine Total Protein Vancomycin Trough 35.4 H Crossmatch 11/09/16 11/09/16 11/09/16 05:30 05:30 05:59 WBC 11.5 H RBC 2.96 L Hgb 9.2 L Hct 28.2 L MCV RDW 16.4 H Plt Count Lymph % (Auto) Andrew % (Auto) Andrew # Seg Neutrophils % Seg Neuts % (Manual) 76.0 H Lymphocytes % (Manual) 2.0 L Monocytes % (Manual) Basophils % (Manual) Nucleated RBC % Seg Neutrophils # Seg Neutrophils # Man 8.7 H Lymphocytes # (Manual) 0.2 L Monocytes # (Manual) Eosinophils # (Manual) Basophils # (Manual) PT INR APTT Heparin Anti-Xa Level POC ABG pH POC ABG pCO2 POC ABG pO2 Sodium Potassium 3.4 L Chloride 107.6 H Carbon Dioxide 19 L BUN Creatinine 0.6 L Glucose 207 H POC Glucose 263 H Calcium 7.3 L Phosphorus Magnesium AST Alkaline Phosphatase C-Reactive Protein Total Protein Albumin Lipase Vitamin B12 TSH Urine WBC (Auto) Urine Chloride Urine Total Protein Vancomycin Trough Crossmatch 11/09/16 11/09/16 11/09/16 11:49 15:24 18:04 WBC RBC Hgb Hct MCV RDW Plt Count Lymph % (Auto) Andrew % (Auto) Andrew # Seg Neutrophils % Seg Neuts % (Manual) Lymphocytes % (Manual) Monocytes % (Manual) Basophils % (Manual) Nucleated RBC % Seg Neutrophils # Seg Neutrophils # Man Lymphocytes # (Manual) Monocytes # (Manual) Eosinophils # (Manual) Basophils # (Manual) PT INR APTT Heparin Anti-Xa Level POC ABG pH POC ABG pCO2 33.8 L POC ABG pO2 131 H Sodium Potassium Chloride Carbon Dioxide BUN Creatinine Glucose POC Glucose 269 H 242 H Calcium Phosphorus Magnesium AST Alkaline Phosphatase C-Reactive Protein Total Protein Albumin Lipase Vitamin B12 TSH Urine WBC (Auto) Urine Chloride Urine Total Protein Vancomycin Trough Crossmatch 11/09/16 11/10/16 11/10/16 22:57 04:30 04:30 WBC 15.7 H RBC 3.17 L Hgb 9.7 L Hct 30.2 L MCV RDW 16.2 H Plt Count Lymph % (Auto) Andrew % (Auto) Andrew # Seg Neutrophils % Seg Neuts % (Manual) Lymphocytes % (Manual) Monocytes % (Manual) Basophils % (Manual) Nucleated RBC % Seg Neutrophils # Seg Neutrophils # Man 8.5 H Lymphocytes # (Manual) Monocytes # (Manual) Eosinophils # (Manual) 0.5 H Basophils # (Manual) PT INR APTT Heparin Anti-Xa Level POC ABG pH POC ABG pCO2 POC ABG pO2 Sodium Potassium Chloride Carbon Dioxide 19 L BUN Creatinine 0.6 L Glucose 199 H POC Glucose 239 H Calcium 7.8 L Phosphorus Magnesium AST Alkaline Phosphatase C-Reactive Protein Total Protein Albumin Lipase Vitamin B12 TSH Urine WBC (Auto) Urine Chloride Urine Total Protein Vancomycin Trough Crossmatch 11/10/16 11/10/16 11/10/16 04:30 11:32 16:00 WBC RBC Hgb Hct MCV RDW Plt Count Lymph % (Auto) Andrew % (Auto) Andrew # Seg Neutrophils % Seg Neuts % (Manual) Lymphocytes % (Manual) Monocytes % (Manual) Basophils % (Manual) Nucleated RBC % Seg Neutrophils # Seg Neutrophils # Man Lymphocytes # (Manual) Monocytes # (Manual) Eosinophils # (Manual) Basophils # (Manual) PT INR APTT Heparin Anti-Xa Level 1.09 H < 0.10 L POC ABG pH POC ABG pCO2 POC ABG pO2 Sodium Potassium Chloride Carbon Dioxide BUN Creatinine Glucose POC Glucose 211 H Calcium Phosphorus Magnesium AST Alkaline Phosphatase C-Reactive Protein Total Protein Albumin Lipase Vitamin B12 TSH Urine WBC (Auto) Urine Chloride Urine Total Protein Vancomycin Trough Crossmatch 11/10/16 11/10/16 11/10/16 17:39 18:00 23:06 WBC RBC Hgb Hct MCV RDW Plt Count Lymph % (Auto) Andrew % (Auto) Andrew # Seg Neutrophils % Seg Neuts % (Manual) Lymphocytes % (Manual) Monocytes % (Manual) Basophils % (Manual) Nucleated RBC % Seg Neutrophils # Seg Neutrophils # Man Lymphocytes # (Manual) Monocytes # (Manual) Eosinophils # (Manual) Basophils # (Manual) PT INR APTT Heparin Anti-Xa Level 0.85 H POC ABG pH POC ABG pCO2 POC ABG pO2 Sodium Potassium Chloride Carbon Dioxide BUN Creatinine Glucose POC Glucose 249 H 220 H Calcium Phosphorus Magnesium AST Alkaline Phosphatase C-Reactive Protein Total Protein Albumin Lipase Vitamin B12 TSH Urine WBC (Auto) Urine Chloride Urine Total Protein Vancomycin Trough Crossmatch 11/11/16 11/11/16 11/11/16 05:56 06:15 06:15 WBC 13.3 H RBC 2.87 L Hgb 8.7 L Hct 27.2 L MCV RDW 16.4 H Plt Count Lymph % (Auto) Andrew % (Auto) Andrew # 0.9 H Seg Neutrophils % 78.9 H Seg Neuts % (Manual) Lymphocytes % (Manual) Monocytes % (Manual) Basophils % (Manual) Nucleated RBC % Seg Neutrophils # 10.5 H Seg Neutrophils # Man Lymphocytes # (Manual) Monocytes # (Manual) Eosinophils # (Manual) Basophils # (Manual) PT INR APTT Heparin Anti-Xa Level POC ABG pH POC ABG pCO2 POC ABG pO2 Sodium Potassium 3.2 L Chloride Carbon Dioxide 19 L BUN Creatinine Glucose POC Glucose 117 H Calcium 7.6 L Phosphorus Magnesium AST Alkaline Phosphatase C-Reactive Protein Total Protein Albumin Lipase Vitamin B12 TSH Urine WBC (Auto) Urine Chloride Urine Total Protein Vancomycin Trough Crossmatch 11/11/16 11/11/16 11/11/16 12:26 16:58 17:33 WBC RBC Hgb Hct MCV RDW Plt Count Lymph % (Auto) Andrew % (Auto) Andrew # Seg Neutrophils % Seg Neuts % (Manual) Lymphocytes % (Manual) Monocytes % (Manual) Basophils % (Manual) Nucleated RBC % Seg Neutrophils # Seg Neutrophils # Man Lymphocytes # (Manual) Monocytes # (Manual) Eosinophils # (Manual) Basophils # (Manual) PT INR APTT Heparin Anti-Xa Level < 0.10 L POC ABG pH POC ABG pCO2 POC ABG pO2 Sodium Potassium Chloride Carbon Dioxide BUN Creatinine Glucose POC Glucose 114 H 161 H Calcium Phosphorus Magnesium AST Alkaline Phosphatase C-Reactive Protein Total Protein Albumin Lipase Vitamin B12 TSH Urine WBC (Auto) Urine Chloride Urine Total Protein Vancomycin Trough Crossmatch 11/12/16 11/12/16 11/12/16 05:00 05:00 05:00 WBC 12.8 H RBC 2.75 L Hgb 8.4 L Hct 25.7 L MCV RDW 16.3 H Plt Count Lymph % (Auto) Andrew % (Auto) 7.5 H Andrew # 1.0 H Seg Neutrophils % 78.0 H Seg Neuts % (Manual) Lymphocytes % (Manual) Monocytes % (Manual) Basophils % (Manual) Nucleated RBC % Seg Neutrophils # 10.0 H Seg Neutrophils # Man Lymphocytes # (Manual) Monocytes # (Manual) Eosinophils # (Manual) Basophils # (Manual) PT INR APTT Heparin Anti-Xa Level 0.87 H POC ABG pH POC ABG pCO2 POC ABG pO2 Sodium Potassium 3.4 L Chloride Carbon Dioxide 19 L BUN Creatinine Glucose 112 H POC Glucose Calcium 7.7 L Phosphorus Magnesium AST Alkaline Phosphatase C-Reactive Protein Total Protein Albumin Lipase Vitamin B12 TSH Urine WBC (Auto) Urine Chloride Urine Total Protein Vancomycin Trough Crossmatch 11/12/16 11/12/16 11/13/16 11:18 16:40 00:44 WBC RBC Hgb Hct MCV RDW Plt Count Lymph % (Auto) Andrew % (Auto) Andrew # Seg Neutrophils % Seg Neuts % (Manual) Lymphocytes % (Manual) Monocytes % (Manual) Basophils % (Manual) Nucleated RBC % Seg Neutrophils # Seg Neutrophils # Man Lymphocytes # (Manual) Monocytes # (Manual) Eosinophils # (Manual) Basophils # (Manual) PT INR APTT Heparin Anti-Xa Level POC ABG pH POC ABG pCO2 POC ABG pO2 Sodium Potassium Chloride Carbon Dioxide BUN Creatinine Glucose POC Glucose 135 H 139 H 169 H Calcium Phosphorus Magnesium AST Alkaline Phosphatase C-Reactive Protein Total Protein Albumin Lipase Vitamin B12 TSH Urine WBC (Auto) Urine Chloride Urine Total Protein Vancomycin Trough Crossmatch 11/13/16 11/13/16 11/13/16 05:28 05:28 06:02 WBC 12.7 H RBC 2.93 L Hgb 9.0 L Hct 27.6 L MCV RDW 16.1 H Plt Count Lymph % (Auto) Andrew % (Auto) Andrew # Seg Neutrophils % 78.6 H Seg Neuts % (Manual) Lymphocytes % (Manual) Monocytes % (Manual) Basophils % (Manual) Nucleated RBC % Seg Neutrophils # 10.0 H Seg Neutrophils # Man Lymphocytes # (Manual) Monocytes # (Manual) Eosinophils # (Manual) Basophils # (Manual) PT INR APTT Heparin Anti-Xa Level POC ABG pH POC ABG pCO2 POC ABG pO2 Sodium Potassium Chloride Carbon Dioxide 17 L BUN Creatinine Glucose 116 H POC Glucose 112 H Calcium 7.8 L Phosphorus Magnesium AST Alkaline Phosphatase C-Reactive Protein Total Protein Albumin Lipase Vitamin B12 TSH Urine WBC (Auto) Urine Chloride Urine Total Protein Vancomycin Trough Crossmatch 11/13/16 11/13/16 11/13/16 12:34 16:55 17:00 WBC RBC Hgb Hct MCV RDW Plt Count Lymph % (Auto) Andrew % (Auto) Andrew # Seg Neutrophils % Seg Neuts % (Manual) Lymphocytes % (Manual) Monocytes % (Manual) Basophils % (Manual) Nucleated RBC % Seg Neutrophils # Seg Neutrophils # Man Lymphocytes # (Manual) Monocytes # (Manual) Eosinophils # (Manual) Basophils # (Manual) PT INR APTT Heparin Anti-Xa Level POC ABG pH POC ABG pCO2 22.9 L POC ABG pO2 53 L Sodium Potassium Chloride Carbon Dioxide BUN Creatinine Glucose POC Glucose 109 H 122 H Calcium Phosphorus Magnesium AST Alkaline Phosphatase C-Reactive Protein Total Protein Albumin Lipase Vitamin B12 TSH Urine WBC (Auto) Urine Chloride Urine Total Protein Vancomycin Trough Crossmatch 11/13/16 11/14/16 11/14/16 23:33 04:42 04:42 WBC 11.7 H RBC 3.01 L Hgb 9.3 L Hct 28.9 L MCV RDW 16.5 H Plt Count Lymph % (Auto) Andrew % (Auto) Andrew # Seg Neutrophils % Seg Neuts % (Manual) 79.0 H Lymphocytes % (Manual) 10.0 L Monocytes % (Manual) Basophils % (Manual) Nucleated RBC % Seg Neutrophils # Seg Neutrophils # Man 9.2 H Lymphocytes # (Manual) Monocytes # (Manual) Eosinophils # (Manual) Basophils # (Manual) PT INR APTT Heparin Anti-Xa Level POC ABG pH POC ABG pCO2 POC ABG pO2 Sodium Potassium Chloride Carbon Dioxide 16 L BUN Creatinine Glucose 102 H POC Glucose 173 H Calcium 7.5 L Phosphorus Magnesium AST Alkaline Phosphatase C-Reactive Protein Total Protein Albumin Lipase Vitamin B12 TSH Urine WBC (Auto) Urine Chloride Urine Total Protein Vancomycin Trough Crossmatch 11/14/16 11/14/16 11/14/16 11:43 16:57 19:45 WBC RBC Hgb Hct MCV RDW Plt Count Lymph % (Auto) Andrew % (Auto) Andrew # Seg Neutrophils % Seg Neuts % (Manual) Lymphocytes % (Manual) Monocytes % (Manual) Basophils % (Manual) Nucleated RBC % Seg Neutrophils # Seg Neutrophils # Man Lymphocytes # (Manual) Monocytes # (Manual) Eosinophils # (Manual) Basophils # (Manual) PT INR APTT Heparin Anti-Xa Level 0.71 H POC ABG pH POC ABG pCO2 POC ABG pO2 Sodium Potassium Chloride Carbon Dioxide BUN Creatinine Glucose POC Glucose 130 H 209 H Calcium Phosphorus Magnesium AST Alkaline Phosphatase C-Reactive Protein Total Protein Albumin Lipase Vitamin B12 TSH Urine WBC (Auto) Urine Chloride Urine Total Protein Vancomycin Trough Crossmatch 11/14/16 11/15/16 11/16/16 23:43 23:47 06:11 WBC RBC Hgb Hct MCV RDW Plt Count Lymph % (Auto) Andrew % (Auto) Andrew # Seg Neutrophils % Seg Neuts % (Manual) Lymphocytes % (Manual) Monocytes % (Manual) Basophils % (Manual) Nucleated RBC % Seg Neutrophils # Seg Neutrophils # Man Lymphocytes # (Manual) Monocytes # (Manual) Eosinophils # (Manual) Basophils # (Manual) PT INR APTT Heparin Anti-Xa Level POC ABG pH POC ABG pCO2 POC ABG pO2 Sodium Potassium Chloride Carbon Dioxide BUN Creatinine Glucose POC Glucose 167 H 114 H 125 H Calcium Phosphorus Magnesium AST Alkaline Phosphatase C-Reactive Protein Total Protein Albumin Lipase Vitamin B12 TSH Urine WBC (Auto) Urine Chloride Urine Total Protein Vancomycin Trough Crossmatch 11/16/16 11/16/16 11/16/16 09:05 09:05 09:05 WBC RBC 2.53 L Hgb 8.0 L Hct 23.7 L MCV RDW 15.9 H Plt Count Lymph % (Auto) Andrew % (Auto) Andrew # Seg Neutrophils % Seg Neuts % (Manual) Lymphocytes % (Manual) Monocytes % (Manual) Basophils % (Manual) Nucleated RBC % Seg Neutrophils # Seg Neutrophils # Man Lymphocytes # (Manual) Monocytes # (Manual) Eosinophils # (Manual) Basophils # (Manual) PT INR APTT Heparin Anti-Xa Level POC ABG pH POC ABG pCO2 POC ABG pO2 Sodium Potassium 2.5 L* D Chloride Carbon Dioxide 19 L BUN 5 L Creatinine Glucose 103 H POC Glucose Calcium 6.6 L Phosphorus Magnesium 1.3 L AST Alkaline Phosphatase C-Reactive Protein Total Protein Albumin Lipase Vitamin B12 TSH Urine WBC (Auto) Urine Chloride Urine Total Protein Vancomycin Trough Crossmatch 11/16/16 11/16/16 11/16/16 12:15 13:00 14:45 WBC RBC Hgb Hct MCV RDW Plt Count Lymph % (Auto) Andrew % (Auto) Andrew # Seg Neutrophils % Seg Neuts % (Manual) Lymphocytes % (Manual) Monocytes % (Manual) Basophils % (Manual) Nucleated RBC % Seg Neutrophils # Seg Neutrophils # Man Lymphocytes # (Manual) Monocytes # (Manual) Eosinophils # (Manual) Basophils # (Manual) PT 19.1 H INR 1.61 H APTT Heparin Anti-Xa Level POC ABG pH 7.479 H POC ABG pCO2 23.6 L POC ABG pO2 Sodium Potassium Chloride Carbon Dioxide BUN Creatinine Glucose POC Glucose 129 H Calcium Phosphorus Magnesium AST Alkaline Phosphatase C-Reactive Protein Total Protein Albumin Lipase Vitamin B12 TSH Urine WBC (Auto) Urine Chloride Urine Total Protein Vancomycin Trough Crossmatch 11/16/16 11/17/16 11/17/16 17:43 00:30 04:32 WBC RBC Hgb Hct MCV RDW Plt Count Lymph % (Auto) Andrew % (Auto) Andrew # Seg Neutrophils % Seg Neuts % (Manual) Lymphocytes % (Manual) Monocytes % (Manual) Basophils % (Manual) Nucleated RBC % Seg Neutrophils # Seg Neutrophils # Man Lymphocytes # (Manual) Monocytes # (Manual) Eosinophils # (Manual) Basophils # (Manual) PT INR APTT Heparin Anti-Xa Level POC ABG pH POC ABG pCO2 POC ABG pO2 Sodium Potassium Chloride Carbon Dioxide 18 L BUN Creatinine Glucose 127 H POC Glucose 224 H 259 H Calcium 7.5 L Phosphorus Magnesium AST Alkaline Phosphatase C-Reactive Protein Total Protein Albumin Lipase Vitamin B12 TSH Urine WBC (Auto) Urine Chloride Urine Total Protein Vancomycin Trough Crossmatch 11/17/16 11/17/16 11/17/16 05:42 08:34 12:19 WBC RBC 2.85 L Hgb 8.9 L Hct 26.5 L MCV RDW 16.2 H Plt Count Lymph % (Auto) Andrew % (Auto) Andrew # Seg Neutrophils % Seg Neuts % (Manual) Lymphocytes % (Manual) Monocytes % (Manual) Basophils % (Manual) Nucleated RBC % Seg Neutrophils # Seg Neutrophils # Man Lymphocytes # (Manual) Monocytes # (Manual) Eosinophils # (Manual) Basophils # (Manual) PT INR APTT Heparin Anti-Xa Level POC ABG pH POC ABG pCO2 POC ABG pO2 Sodium Potassium Chloride Carbon Dioxide BUN Creatinine Glucose POC Glucose 118 H 264 H Calcium Phosphorus Magnesium AST Alkaline Phosphatase C-Reactive Protein Total Protein Albumin Lipase Vitamin B12 TSH Urine WBC (Auto) Urine Chloride Urine Total Protein Vancomycin Trough Crossmatch 11/17/16 11/17/16 11/18/16 16:52 23:44 04:53 WBC RBC Hgb Hct MCV RDW Plt Count Lymph % (Auto) Andrew % (Auto) Andrew # Seg Neutrophils % Seg Neuts % (Manual) Lymphocytes % (Manual) Monocytes % (Manual) Basophils % (Manual) Nucleated RBC % Seg Neutrophils # Seg Neutrophils # Man Lymphocytes # (Manual) Monocytes # (Manual) Eosinophils # (Manual) Basophils # (Manual) PT INR APTT Heparin Anti-Xa Level POC ABG pH POC ABG pCO2 POC ABG pO2 Sodium Potassium Chloride Carbon Dioxide BUN Creatinine Glucose POC Glucose 256 H 109 H 287 H Calcium Phosphorus Magnesium AST Alkaline Phosphatase C-Reactive Protein Total Protein Albumin Lipase Vitamin B12 TSH Urine WBC (Auto) Urine Chloride Urine Total Protein Vancomycin Trough Crossmatch 11/18/16 11/18/16 11/18/16 05:31 05:45 05:45 WBC RBC Hgb Hct MCV RDW Plt Count Lymph % (Auto) Andrew % (Auto) Andrew # Seg Neutrophils % Seg Neuts % (Manual) Lymphocytes % (Manual) Monocytes % (Manual) Basophils % (Manual) Nucleated RBC % Seg Neutrophils # Seg Neutrophils # Man Lymphocytes # (Manual) Monocytes # (Manual) Eosinophils # (Manual) Basophils # (Manual) PT 20.1 H INR 1.72 H APTT 131.1 H* Heparin Anti-Xa Level 0.18 L POC ABG pH 7.252 L POC ABG pCO2 32.0 L POC ABG pO2 Sodium Potassium Chloride 107.1 H Carbon Dioxide 17 L BUN Creatinine Glucose 284 H POC Glucose Calcium 7.2 L Phosphorus Magnesium AST Alkaline Phosphatase C-Reactive Protein Total Protein 5.5 L Albumin 2.1 L Lipase Vitamin B12 TSH Urine WBC (Auto) Urine Chloride Urine Total Protein Vancomycin Trough Crossmatch 11/18/16 11/18/16 11/18/16 05:45 09:17 12:06 WBC 13.3 H RBC 3.07 L Hgb 9.2 L Hct 29.5 L MCV RDW 16.9 H Plt Count Lymph % (Auto) 11.0 L Andrew % (Auto) Andrew # Seg Neutrophils % 82.9 H Seg Neuts % (Manual) Lymphocytes % (Manual) Monocytes % (Manual) Basophils % (Manual) Nucleated RBC % Seg Neutrophils # 11.0 H Seg Neutrophils # Man Lymphocytes # (Manual) Monocytes # (Manual) Eosinophils # (Manual) Basophils # (Manual) PT INR APTT Heparin Anti-Xa Level POC ABG pH POC ABG pCO2 24.3 L POC ABG pO2 79 L Sodium Potassium Chloride Carbon Dioxide BUN Creatinine Glucose POC Glucose 433 H Calcium Phosphorus Magnesium AST Alkaline Phosphatase C-Reactive Protein Total Protein Albumin Lipase Vitamin B12 TSH Urine WBC (Auto) Urine Chloride Urine Total Protein Vancomycin Trough Crossmatch 11/18/16 11/18/16 11/18/16 12:09 13:00 17:22 WBC 12.6 H RBC 2.79 L Hgb 8.6 L Hct 26.6 L MCV RDW 17.0 H Plt Count Lymph % (Auto) Andrew % (Auto) Andrew # Seg Neutrophils % Seg Neuts % (Manual) 90.0 H Lymphocytes % (Manual) 8.0 L Monocytes % (Manual) Basophils % (Manual) Nucleated RBC % Seg Neutrophils # Seg Neutrophils # Man 11.3 H Lymphocytes # (Manual) 1.0 L Monocytes # (Manual) Eosinophils # (Manual) Basophils # (Manual) PT INR APTT Heparin Anti-Xa Level POC ABG pH POC ABG pCO2 POC ABG pO2 Sodium Potassium Chloride Carbon Dioxide BUN Creatinine Glucose POC Glucose 429 H 297 H Calcium Phosphorus Magnesium AST Alkaline Phosphatase C-Reactive Protein Total Protein Albumin Lipase Vitamin B12 TSH Urine WBC (Auto) Urine Chloride Urine Total Protein Vancomycin Trough Crossmatch 11/18/16 11/19/16 11/19/16 23:27 04:30 04:30 WBC RBC 2.92 L Hgb 8.8 L Hct 27.0 L MCV RDW 16.6 H Plt Count Lymph % (Auto) Andrew % (Auto) Andrew # Seg Neutrophils % Seg Neuts % (Manual) Lymphocytes % (Manual) Monocytes % (Manual) Basophils % (Manual) Nucleated RBC % Seg Neutrophils # Seg Neutrophils # Man Lymphocytes # (Manual) Monocytes # (Manual) Eosinophils # (Manual) Basophils # (Manual) PT INR APTT Heparin Anti-Xa Level POC ABG pH POC ABG pCO2 POC ABG pO2 Sodium Potassium 3.0 L Chloride 107.9 H Carbon Dioxide 20 L BUN Creatinine Glucose 231 H POC Glucose 268 H Calcium 7.1 L Phosphorus Magnesium AST Alkaline Phosphatase C-Reactive Protein Total Protein 5.5 L Albumin 2.1 L Lipase Vitamin B12 TSH Urine WBC (Auto) Urine Chloride Urine Total Protein Vancomycin Trough Crossmatch 11/19/16 11/19/16 11/19/16 04:40 06:40 10:00 WBC RBC Hgb Hct MCV RDW Plt Count Lymph % (Auto) Andrew % (Auto) Andrew # Seg Neutrophils % Seg Neuts % (Manual) Lymphocytes % (Manual) Monocytes % (Manual) Basophils % (Manual) Nucleated RBC % Seg Neutrophils # Seg Neutrophils # Man Lymphocytes # (Manual) Monocytes # (Manual) Eosinophils # (Manual) Basophils # (Manual) PT INR APTT Heparin Anti-Xa Level POC ABG pH POC ABG pCO2 POC ABG pO2 Sodium Potassium Chloride Carbon Dioxide BUN Creatinine Glucose POC Glucose 267 H 244 H Calcium Phosphorus Magnesium 1.4 L AST Alkaline Phosphatase C-Reactive Protein Total Protein Albumin Lipase Vitamin B12 TSH Urine WBC (Auto) Urine Chloride Urine Total Protein Vancomycin Trough Crossmatch 11/19/16 11/19/16 11/19/16 12:08 18:10 23:40 WBC RBC Hgb Hct MCV RDW Plt Count Lymph % (Auto) Andrew % (Auto) Andrew # Seg Neutrophils % Seg Neuts % (Manual) Lymphocytes % (Manual) Monocytes % (Manual) Basophils % (Manual) Nucleated RBC % Seg Neutrophils # Seg Neutrophils # Man Lymphocytes # (Manual) Monocytes # (Manual) Eosinophils # (Manual) Basophils # (Manual) PT INR APTT Heparin Anti-Xa Level POC ABG pH POC ABG pCO2 POC ABG pO2 Sodium Potassium Chloride Carbon Dioxide BUN Creatinine Glucose POC Glucose 254 H 265 H 197 H Calcium Phosphorus Magnesium AST Alkaline Phosphatase C-Reactive Protein Total Protein Albumin Lipase Vitamin B12 TSH Urine WBC (Auto) Urine Chloride Urine Total Protein Vancomycin Trough Crossmatch 11/20/16 11/20/16 11/20/16 05:00 05:44 11:33 WBC RBC Hgb Hct MCV RDW Plt Count Lymph % (Auto) Andrew % (Auto) Andrew # Seg Neutrophils % Seg Neuts % (Manual) Lymphocytes % (Manual) Monocytes % (Manual) Basophils % (Manual) Nucleated RBC % Seg Neutrophils # Seg Neutrophils # Man Lymphocytes # (Manual) Monocytes # (Manual) Eosinophils # (Manual) Basophils # (Manual) PT INR APTT Heparin Anti-Xa Level POC ABG pH POC ABG pCO2 POC ABG pO2 Sodium Potassium 3.4 L Chloride 107.4 H Carbon Dioxide 20 L BUN Creatinine Glucose 140 H POC Glucose 163 H 108 H Calcium 7.2 L Phosphorus Magnesium AST Alkaline Phosphatase C-Reactive Protein Total Protein Albumin Lipase Vitamin B12 TSH Urine WBC (Auto) Urine Chloride Urine Total Protein Vancomycin Trough Crossmatch 11/20/16 11/20/16 11/20/16 13:03 16:45 23:26 WBC RBC Hgb Hct MCV RDW Plt Count Lymph % (Auto) Andrew % (Auto) Andrew # Seg Neutrophils % Seg Neuts % (Manual) Lymphocytes % (Manual) Monocytes % (Manual) Basophils % (Manual) Nucleated RBC % Seg Neutrophils # Seg Neutrophils # Man Lymphocytes # (Manual) Monocytes # (Manual) Eosinophils # (Manual) Basophils # (Manual) PT INR APTT Heparin Anti-Xa Level POC ABG pH POC ABG pCO2 POC ABG pO2 Sodium Potassium Chloride Carbon Dioxide BUN Creatinine Glucose POC Glucose 113 H 168 H Calcium Phosphorus Magnesium AST Alkaline Phosphatase C-Reactive Protein Total Protein Albumin Lipase Vitamin B12 TSH Urine WBC (Auto) Urine Chloride Urine Total Protein Vancomycin Trough 45.8 H Crossmatch 11/21/16 11/21/16 11/21/16 05:00 05:27 09:50 WBC RBC Hgb Hct MCV RDW Plt Count Lymph % (Auto) Andrew % (Auto) Andrew # Seg Neutrophils % Seg Neuts % (Manual) Lymphocytes % (Manual) Monocytes % (Manual) Basophils % (Manual) Nucleated RBC % Seg Neutrophils # Seg Neutrophils # Man Lymphocytes # (Manual) Monocytes # (Manual) Eosinophils # (Manual) Basophils # (Manual) PT INR APTT Heparin Anti-Xa Level POC ABG pH POC ABG pCO2 POC ABG pO2 Sodium 133 L D Potassium Chloride Carbon Dioxide 19 L BUN Creatinine Glucose 280 H POC Glucose 222 H Calcium 7.4 L Phosphorus Magnesium AST Alkaline Phosphatase C-Reactive Protein Total Protein Albumin Lipase Vitamin B12 TSH Urine WBC (Auto) Urine Chloride Urine Total Protein Vancomycin Trough 30.4 H Crossmatch 11/21/16 11/21/16 11/21/16 12:36 17:17 18:34 WBC RBC Hgb Hct MCV RDW Plt Count Lymph % (Auto) Andrew % (Auto) Andrew # Seg Neutrophils % Seg Neuts % (Manual) Lymphocytes % (Manual) Monocytes % (Manual) Basophils % (Manual) Nucleated RBC % Seg Neutrophils # Seg Neutrophils # Man Lymphocytes # (Manual) Monocytes # (Manual) Eosinophils # (Manual) Basophils # (Manual) PT INR APTT Heparin Anti-Xa Level POC ABG pH POC ABG pCO2 POC ABG pO2 Sodium Potassium Chloride Carbon Dioxide BUN Creatinine Glucose POC Glucose 306 H 339 H 318 H Calcium Phosphorus Magnesium AST Alkaline Phosphatase C-Reactive Protein Total Protein Albumin Lipase Vitamin B12 TSH Urine WBC (Auto) Urine Chloride Urine Total Protein Vancomycin Trough Crossmatch 11/21/16 11/22/16 11/22/16 23:16 07:19 11:49 WBC 11.1 H RBC 2.60 L Hgb 7.8 L Hct 24.4 L MCV RDW 16.3 H Plt Count Lymph % (Auto) Andrew % (Auto) Andrew # Seg Neutrophils % 76.8 H Seg Neuts % (Manual) Lymphocytes % (Manual) Monocytes % (Manual) Basophils % (Manual) Nucleated RBC % Seg Neutrophils # 8.5 H Seg Neutrophils # Man Lymphocytes # (Manual) Monocytes # (Manual) Eosinophils # (Manual) Basophils # (Manual) PT INR APTT Heparin Anti-Xa Level POC ABG pH POC ABG pCO2 POC ABG pO2 Sodium Potassium Chloride Carbon Dioxide BUN Creatinine Glucose POC Glucose 286 H 371 H Calcium Phosphorus Magnesium AST Alkaline Phosphatase C-Reactive Protein Total Protein Albumin Lipase Vitamin B12 TSH Urine WBC (Auto) Urine Chloride Urine Total Protein Vancomycin Trough Crossmatch 11/22/16 11/22/16 11/22/16 11:50 11:50 17:34 WBC RBC Hgb Hct MCV RDW Plt Count Lymph % (Auto) Andrew % (Auto) Andrew # Seg Neutrophils % Seg Neuts % (Manual) Lymphocytes % (Manual) Monocytes % (Manual) Basophils % (Manual) Nucleated RBC % Seg Neutrophils # Seg Neutrophils # Man Lymphocytes # (Manual) Monocytes # (Manual) Eosinophils # (Manual) Basophils # (Manual) PT INR APTT Heparin Anti-Xa Level POC ABG pH POC ABG pCO2 POC ABG pO2 Sodium 130 L Potassium Chloride Carbon Dioxide 19 L BUN 20 H Creatinine Glucose 266 H POC Glucose 262 H 284 H Calcium 7.2 L Phosphorus Magnesium AST Alkaline Phosphatase C-Reactive Protein Total Protein Albumin Lipase Vitamin B12 TSH Urine WBC (Auto) Urine Chloride Urine Total Protein Vancomycin Trough Crossmatch 11/22/16 11/22/16 11/22/16 17:43 20:04 23:38 WBC RBC Hgb Hct MCV RDW Plt Count Lymph % (Auto) Andrew % (Auto) Andrew # Seg Neutrophils % Seg Neuts % (Manual) Lymphocytes % (Manual) Monocytes % (Manual) Basophils % (Manual) Nucleated RBC % Seg Neutrophils # Seg Neutrophils # Man Lymphocytes # (Manual) Monocytes # (Manual) Eosinophils # (Manual) Basophils # (Manual) PT INR APTT Heparin Anti-Xa Level POC ABG pH 7.492 H POC ABG pCO2 23.2 L POC ABG pO2 60 L Sodium Potassium Chloride Carbon Dioxide BUN Creatinine Glucose POC Glucose 261 H 253 H Calcium Phosphorus Magnesium AST Alkaline Phosphatase C-Reactive Protein Total Protein Albumin Lipase Vitamin B12 TSH Urine WBC (Auto) Urine Chloride Urine Total Protein Vancomycin Trough Crossmatch 11/23/16 11/23/16 11/23/16 06:27 08:20 11:54 WBC RBC Hgb 8.2 L Hct 24.9 L MCV RDW Plt Count Lymph % (Auto) Andrew % (Auto) Andrew # Seg Neutrophils % Seg Neuts % (Manual) Lymphocytes % (Manual) Monocytes % (Manual) Basophils % (Manual) Nucleated RBC % Seg Neutrophils # Seg Neutrophils # Man Lymphocytes # (Manual) Monocytes # (Manual) Eosinophils # (Manual) Basophils # (Manual) PT INR APTT Heparin Anti-Xa Level POC ABG pH POC ABG pCO2 POC ABG pO2 Sodium Potassium Chloride Carbon Dioxide BUN Creatinine Glucose POC Glucose 333 H 286 H Calcium Phosphorus Magnesium AST Alkaline Phosphatase C-Reactive Protein Total Protein Albumin Lipase Vitamin B12 TSH Urine WBC (Auto) Urine Chloride Urine Total Protein Vancomycin Trough Crossmatch 11/23/16 11/23/16 11/24/16 17:53 23:51 00:12 WBC RBC Hgb Hct MCV RDW Plt Count Lymph % (Auto) Andrew % (Auto) Andrew # Seg Neutrophils % Seg Neuts % (Manual) Lymphocytes % (Manual) Monocytes % (Manual) Basophils % (Manual) Nucleated RBC % Seg Neutrophils # Seg Neutrophils # Man Lymphocytes # (Manual) Monocytes # (Manual) Eosinophils # (Manual) Basophils # (Manual) PT INR APTT Heparin Anti-Xa Level POC ABG pH POC ABG pCO2 POC ABG pO2 Sodium Potassium Chloride Carbon Dioxide BUN Creatinine Glucose POC Glucose 195 H 214 H 223 H Calcium Phosphorus Magnesium AST Alkaline Phosphatase C-Reactive Protein Total Protein Albumin Lipase Vitamin B12 TSH Urine WBC (Auto) Urine Chloride Urine Total Protein Vancomycin Trough Crossmatch 11/24/16 11/24/16 11/24/16 04:50 04:50 06:08 WBC RBC 2.74 L Hgb 8.4 L Hct 26.1 L MCV RDW 16.0 H Plt Count Lymph % (Auto) Andrew % (Auto) Andrew # Seg Neutrophils % Seg Neuts % (Manual) Lymphocytes % (Manual) Monocytes % (Manual) Basophils % (Manual) Nucleated RBC % Seg Neutrophils # Seg Neutrophils # Man Lymphocytes # (Manual) Monocytes # (Manual) Eosinophils # (Manual) Basophils # (Manual) PT INR APTT Heparin Anti-Xa Level POC ABG pH POC ABG pCO2 POC ABG pO2 Sodium 133 L Potassium Chloride Carbon Dioxide 19 L BUN 23 H Creatinine Glucose 200 H POC Glucose 187 H Calcium 7.2 L Phosphorus Magnesium AST Alkaline Phosphatase C-Reactive Protein Total Protein Albumin Lipase Vitamin B12 TSH Urine WBC (Auto) Urine Chloride Urine Total Protein Vancomycin Trough Crossmatch 11/24/16 11/24/16 11/24/16 12:02 17:43 23:35 WBC RBC Hgb Hct MCV RDW Plt Count Lymph % (Auto) Andrew % (Auto) Andrew # Seg Neutrophils % Seg Neuts % (Manual) Lymphocytes % (Manual) Monocytes % (Manual) Basophils % (Manual) Nucleated RBC % Seg Neutrophils # Seg Neutrophils # Man Lymphocytes # (Manual) Monocytes # (Manual) Eosinophils # (Manual) Basophils # (Manual) PT INR APTT Heparin Anti-Xa Level POC ABG pH POC ABG pCO2 POC ABG pO2 Sodium Potassium Chloride Carbon Dioxide BUN Creatinine Glucose POC Glucose 250 H 226 H 230 H Calcium Phosphorus Magnesium AST Alkaline Phosphatase C-Reactive Protein Total Protein Albumin Lipase Vitamin B12 TSH Urine WBC (Auto) Urine Chloride Urine Total Protein Vancomycin Trough Crossmatch 11/25/16 11/25/16 11/25/16 05:47 11:37 18:00 WBC RBC Hgb Hct MCV RDW Plt Count Lymph % (Auto) Andrew % (Auto) Andrew # Seg Neutrophils % Seg Neuts % (Manual) Lymphocytes % (Manual) Monocytes % (Manual) Basophils % (Manual) Nucleated RBC % Seg Neutrophils # Seg Neutrophils # Man Lymphocytes # (Manual) Monocytes # (Manual) Eosinophils # (Manual) Basophils # (Manual) PT INR APTT Heparin Anti-Xa Level POC ABG pH POC ABG pCO2 POC ABG pO2 Sodium Potassium Chloride Carbon Dioxide BUN Creatinine Glucose POC Glucose 229 H 226 H 226 H Calcium Phosphorus Magnesium AST Alkaline Phosphatase C-Reactive Protein Total Protein Albumin Lipase Vitamin B12 TSH Urine WBC (Auto) Urine Chloride Urine Total Protein Vancomycin Trough Crossmatch 11/26/16 05:43 WBC RBC Hgb Hct MCV RDW Plt Count Lymph % (Auto) Andrew % (Auto) Andrew # Seg Neutrophils % Seg Neuts % (Manual) Lymphocytes % (Manual) Monocytes % (Manual) Basophils % (Manual) Nucleated RBC % Seg Neutrophils # Seg Neutrophils # Man Lymphocytes # (Manual) Monocytes # (Manual) Eosinophils # (Manual) Basophils # (Manual) PT INR APTT Heparin Anti-Xa Level POC ABG pH POC ABG pCO2 POC ABG pO2 Sodium Potassium Chloride Carbon Dioxide BUN Creatinine Glucose POC Glucose 262 H Calcium Phosphorus Magnesium AST Alkaline Phosphatase C-Reactive Protein Total Protein Albumin Lipase Vitamin B12 TSH Urine WBC (Auto) Urine Chloride Urine Total Protein Vancomycin Trough Crossmatch Allied health notes reviewed: RT
--- NOTE | 2016-11-26 14:28 | Progress Note ---
Assessment and Plan Assessment and plan: Patient is a 66-year-old woman who presented with lethargy and altered mental status with possible anoxic injury unknown duration of how long she was down for she deteriorated and was intubated in emergency room, she was managed for DKA and she also developed sepsis due to UTI and right lower extremity ischemia- > Cold right foot which I discovered on Rounds on 10/17/16 and I asked the nurse for the bedside doppler which showed no pulse, My exam on the morning of morning has changed, she had a pulse right foot. Arterial duplex revealed a proximal right superficial femoral artery occlusion. I consulted and discussed with Vascular surgery, Dr. Eller ==>Acute ischemic right foot, too ill for intervention, on heparin drip. D/W vascular. 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 Remained very difficult to wean from the vent. Although eventually was tolerating pressure support. She subsequently went into cardiac arrest was resuscitated but this time was not able to recover back to following commands as previous before second cardiac arrest. Heparin was discontinued due to CPR. Vascular did not feel at this time that for reactivation of the right lower extremity was needed. Imaging studies were consented for anoxic encephalopathy and cortical irritability although no diagnosis of brain was noted. Dr. Mcclure discussed with family extensively and has informed them about real possibility of not having any meaningful neurological recovery. They agreed with transfer to a skilled facility with vent Ability. Case management is working and is meantime we'll continue current therapy and management. -S/P cardiopulomary arrest x 2 -A/C respiratory failure with hypercapnea -Seizure-Per family prior hx -DM, s/p DKA -Hyponatremia -Acute limb ischemia of right lower ext due to SFA thrombosis- s/p right BKA -LUCY/CKD 3 likely vasomotor nephropathy-resolved -Sepsis, Strept Group B tracheobronchitis, poa- Multifactorial -Anemia of chronic disease -Hematuria -Metabolic acidosis -Severe Hypokalemia-RESOLVED -Pancreatitis, acute, poa -Vaginal candidiasis -Hypernatremia -MSOF, poa Plan: * s/p EEG - findings consistent with anoxic encephalopathy and cortical irritability * Neurology notes intact brain stem * PSV as tolerated * Family updated about the very real possibility of not having any meaningful neurological recovery. all questions answered. Family meeting with daughter, and grandchild with greatgrand child in attendance. Case mangement and social services designee and bedside nurse were also present. * Poor prognosis. * Plan for transfer to [facility] helper acute care facility pending * MRI brain with no gross abnormality * adjust insulin therapy * Neurologic input noted. EEG abnormal. * Heparin had to be held due to the risk associated considering recent CPR with chest compressions. * vascular following up on right BKA remains poor prognosis and likely will need a conversion to AKA. * Continue subcutaneous insulin and electrolyte replacement * Continue Cardizem and beta juan antonio * Monitor electrolytes and hemoglobin. * continue dilantin * DVT and GI prophylaxis History Interval history: Patient seen and examined. Follow up on respiratory failure, still intubated. Overnight uneventful. Imaging, old records, testing, labs, nursing notes reviewed. Hospitalist Physical - Physical exam Narrative exam: GEN: Intubated CVS: RRR, NORMAL S1S2 LUNGS/CHEST: Tachypnea NORMAL CHEST EXPANSION B, GOOD AIR ENTRY B ABD: SOFT +peg, GBS, NO REBOUND OR GUARDING NEURO: CN 2-12 GROSSLY INTACT, doesn't follow commands, eyes wondering PSY: Anxious New issue: right bka, tracheostomy and peg present - Constitutional Vitals: Temp Pulse Resp BP Pulse Ox 99.9 F H 91 H 18 147/68 100 11/26/16 12:00 11/26/16 12:30 11/26/16 12:30 11/26/16 12:30 11/26/16 12:30 General appearance: Present: other (intubated) Results - Labs CBC & Chem 7: 11/24/16 04:50 11/24/16 04:50 Labs: Laboratory Last Values WBC 9.9 K/mm3 (4.5-11.0) 11/24/16 04:50 RBC 2.74 M/mm3 (3.65-5.03) L 11/24/16 04:50 Hgb 8.4 gm/dl (10.1-14.3) L 11/24/16 04:50 Hct 26.1 % (30.3-42.9) L 11/24/16 04:50 MCV 95 fl (79-97) 11/24/16 04:50 MCH 31 pg (28-32) 11/24/16 04:50 MCHC 32 % (30-34) 11/24/16 04:50 RDW 16.0 % (13.2-15.2) H 11/24/16 04:50 Plt Count 289 K/mm3 (140-440) 11/24/16 04:50 Lymph % (Auto) 14.8 % (13.4-35.0) 11/22/16 11:49 [place] % (Auto) 6.7 % (0.0-7.3) 11/22/16 11:49 Eos % (Auto) 1.1 % (0.0-4.3) 11/22/16 11:49 Baso % (Auto) 0.6 % (0.0-1.8) 11/22/16 11:49 Lymph # 1.6 K/mm3 (1.2-5.4) 11/22/16 11:49 [place] # 0.7 K/mm3 (0.0-0.8) 11/22/16 11:49 Eos # 0.1 K/mm3 (0.0-0.4) 11/22/16 11:49 Baso # 0.1 K/mm3 (0.0-0.1) 11/22/16 11:49 Add Manual Diff Complete 11/18/16 13:00 Total Counted 100 11/18/16 13:00 Seg Neutrophils % 76.8 % (40.0-70.0) H 11/22/16 11:49 Seg Neuts % (Manual) 90.0 % (40.0-70.0) H 11/18/16 13:00 Band Neutrophils % 0 % 11/18/16 13:00 Lymphocytes % (Manual) 8.0 % (13.4-35.0) L 11/18/16 13:00 Reactive Lymphs % (Man) 0 % 11/18/16 13:00 Monocytes % (Manual) 2.0 % (0.0-7.3) 11/18/16 13:00 Eosinophils % (Manual) 0 % (0.0-4.3) 11/18/16 13:00 Basophils % (Manual) 0 % (0.0-1.8) 11/18/16 13:00 Metamyelocytes % 0 % 11/18/16 13:00 Myelocytes % 0 % 11/18/16 13:00 Promyelocytes % 0 % 11/18/16 13:00 Blast Cells % 0 % 11/18/16 13:00 Nucleated RBC % Not Reportable 11/18/16 13:00 Seg Neutrophils # 8.5 K/mm3 (1.8-7.7) H 11/22/16 11:49 Seg Neutrophils # Man 11.3 K/mm3 (1.8-7.7) H 11/18/16 13:00 Band Neutrophils # 0.0 K/mm3 11/18/16 13:00 Lymphocytes # (Manual) 1.0 K/mm3 (1.2-5.4) L 11/18/16 13:00 Abs React Lymphs (Man) 0.0 K/mm3 11/18/16 13:00 Monocytes # (Manual) 0.3 K/mm3 (0.0-0.8) 11/18/16 13:00 Eosinophils # (Manual) 0.0 K/mm3 (0.0-0.4) 11/18/16 13:00 Basophils # (Manual) 0.0 K/mm3 (0.0-0.1) 11/18/16 13:00 Metamyelocytes # 0.0 K/mm3 11/18/16 13:00 Myelocytes # 0.0 K/mm3 11/18/16 13:00 Promyelocytes # 0.0 K/mm3 11/18/16 13:00 Blast Cells # 0.0 K/mm3 11/18/16 13:00 Pathologist Review 10/29/16 09:30 WBC Morphology Not Reportable 11/18/16 13:00 Hypersegmented Neuts Not Reportable 11/18/16 13:00 Hyposegmented Neuts Not Reportable 11/18/16 13:00 Hypogranular Neuts Not Reportable 11/18/16 13:00 Hypersegmented Polys TNR 10/17/16 07:08 Smudge Cells Not Reportable 11/18/16 13:00 Toxic Granulation Not Reportable 11/18/16 13:00 Toxic Vacuolation Not Reportable 11/18/16 13:00 Dohle Bodies Not Reportable 11/18/16 13:00 Pelger-Huet Anomaly Not Reportable 11/18/16 13:00 [place]ka Rods Not Reportable 11/18/16 13:00 Platelet Estimate Consistent w auto 11/18/16 13:00 Clumped Platelets Not Reportable 11/18/16 13:00 Plt Clumps, EDTA Not Reportable 11/18/16 13:00 Large Platelets Not Reportable 11/18/16 13:00 Giant Platelets Not Reportable 11/18/16 13:00 Platelet Satelliting Not Reportable 11/18/16 13:00 Plt Morphology Comment Not Reportable 11/18/16 13:00 RBC Morphology Not Reportable 11/18/16 13:00 Dimorphic RBCs Not Reportable 11/18/16 13:00 Polychromasia Not Reportable 11/18/16 13:00 Hypochromasia Not Reportable 11/18/16 13:00 Poikilocytosis Not Reportable 11/18/16 13:00 Basophilic Stippling TNR 10/17/16 07:08 Anisocytosis 1+ 11/18/16 13:00 Microcytosis Not Reportable 11/18/16 13:00 Macrocytosis Not Reportable 11/18/16 13:00 Spherocytes Not Reportable 11/18/16 13:00 Pappenheimer Bodies Not Reportable 11/18/16 13:00 Sickle Cells Not Reportable 11/18/16 13:00 Target Cells Not Reportable 11/18/16 13:00 Tear Drop Cells Not Reportable 11/18/16 13:00 Ovalocytes Not Reportable 11/18/16 13:00 Stomatocytes Few 11/03/16 00:05 Helmet Cells Not Reportable 11/18/16 13:00 [place] Bodies Not Reportable 11/18/16 13:00 [place] Rings Not Reportable 11/18/16 13:00 [place] Cells Not Reportable 11/18/16 13:00 Bite Cells Not Reportable 11/18/16 13:00 Crenated Cell Not Reportable 11/18/16 13:00 Elliptocytes Not Reportable 11/18/16 13:00 Acanthocytes (Spur) Not Reportable 11/18/16 13:00 Rouleaux Not Reportable 11/18/16 13:00 Hemoglobin C Crystals Not Reportable 11/18/16 13:00 Schistocytes Not Reportable 11/18/16 13:00 Malaria parasites Not Reportable 11/18/16 13:00 David Bodies Not Reportable 11/18/16 13:00 Hem Pathologist Commnt No 11/18/16 13:00 PT 20.1 Sec. (12.2-14.9) H 11/18/16 05:45 INR 1.72 (0.87-1.13) H 11/18/16 05:45 APTT 131.1 Sec. (24.2-36.6) H* 11/18/16 05:45 Heparin Anti-Xa Level 0.51 U.I./ml (0.3-0.7) 11/18/16 11:16 POC ABG pH 7.492 (7.35-7.45) H 11/22/16 20:04 POC ABG pCO2 23.2 (35-45) L 11/22/16 20:04 POC ABG pO2 60 (80-105) L 11/22/16 20:04 POC ABG HCO3 17.8 11/22/16 20:04 POC ABG Total CO2 18 11/22/16 20:04 POC ABG O2 Sat 93 11/22/16 20:04 POC ABG Base Excess -6 11/22/16 20:04 VBG pH 7.020 (7.320-7.420) L* 10/13/16 04:22 FiO2 35 % 11/22/16 20:04 Sodium 133 mmol/L (137-145) L 11/24/16 04:50 Potassium 3.8 mmol/L (3.6-5.0) 11/24/16 04:50 Chloride 99.3 mmol/L (98-107) 11/24/16 04:50 Carbon Dioxide 19 mmol/L (22-30) L 11/24/16 04:50 Anion Gap 19 mmol/L 11/24/16 04:50 BUN 23 mg/dL (7-17) H 11/24/16 04:50 Creatinine 0.9 mg/dL (0.7-1.2) 11/24/16 04:50 Estimated GFR > 60 ml/min 11/24/16 04:50 BUN/Creatinine Ratio 25.55 % 11/24/16 04:50 Glucose 200 mg/dL (65-100) H 11/24/16 04:50 POC Glucose 262 (70-105) H 11/26/16 05:43 Osmolality 332 Mosm/kg 10/14/16 07:03 Lactic Acid 1.8 mmol/L (0.7-2.0) 10/14/16 07:03 Calcium 7.2 mg/dL (8.4-10.2) L 11/24/16 04:50 Phosphorus 2.7 mg/dL (2.5-4.5) D 10/21/16 Unknown Magnesium 2.0 mg/dL (1.7-2.3) 11/20/16 05:00 Total Bilirubin 0.2 mg/dL (0.1-1.2) 11/19/16 04:30 AST 9 units/L (5-40) 11/19/16 04:30 ALT 7 units/L (7-56) 11/19/16 04:30 Alkaline Phosphatase 82 units/L (35-129) 11/19/16 04:30 Ammonia 35.0 umol/L (25-60) 10/13/16 05:40 Total Creatine Kinase 107 units/L (30-135) 10/13/16 04:22 CK-MB (CK-2) 3.1 ng/mL (0.0-4.0) 10/13/16 04:22 CK-MB (CK-2) Rel Index 2.8 (0-4) 10/13/16 04:22 Troponin T < 0.010 ng/mL (0.00-0.029) 10/14/16 18:55 C-Reactive Protein 10.50 mg/dL (0.00-1.30) H 10/13/16 16:14 Total Protein 5.5 g/dL (6.3-8.2) L 11/19/16 04:30 Albumin 2.1 g/dL (3.9-5) L 11/19/16 04:30 Albumin/Globulin Ratio 0.6 % 11/19/16 04:30 Amylase 30 units/L (27-131) 11/10/16 04:30 Lipase 41 units/L (13-60) 11/10/16 04:30 Vitamin B12 976.8 pg/mL (211-911) H 10/22/16 10:25 TSH 0.162 mlU/mL (0.270-4.200) L 10/22/16 14:50 Free T4 0.77 ng/dL (0.76-1.46) 10/22/16 14:50 Urine Color Yellow (Yellow) 11/14/16 19:39 Urine Turbidity Cloudy (Clear) 11/14/16 19:39 Urine pH 6.0 (5.0-7.0) 11/14/16 19:39 Ur Specific [place] 1.010 (1.003-1.030) 11/14/16 19:39 Urine Protein 30 mg/dl mg/dL (Negative) 11/14/16 19:39 Urine Glucose (UA) 50 mg/dL (Negative) 11/14/16 19:39 Urine Ketones 20 mg/dL (Negative) 11/14/16 19:39 Urine Blood Lg (Negative) 11/14/16 19:39 Urine Nitrite Neg (Negative) 11/14/16 19:39 Urine Bilirubin Neg (Negative) 11/14/16 19:39 Urine Urobilinogen < 2.0 mg/dL (<2.0) 11/14/16 19:39 Ur Leukocyte Esterase Sm (Negative) 11/14/16 19:39 Urine WBC (Auto) 3.0 /HPF (0.0-6.0) 11/14/16 19:39 Urine RBC (Auto) > 182.0 /HPF (0.0-6.0) 11/14/16 19:39 U Epithel Cells (Auto) 1.0 /HPF (0-13.0) 10/15/16 11:05 Urine Bacteria (Auto) 1+ /HPF (Negative) 11/14/16 19:39 Urine Mucus Few /HPF 11/14/16 19:39 Urine Yeast (Budding) 2+ /HPF 10/15/16 11:05 Urine Osmolality 487 Mosm/kg 10/13/16 Unknown Urine Creatinine < 4.2 mg/dL (0.1-20.0) 10/13/16 Unknown Protein/Creatinin Ratio 0.00 10/13/16 Unknown Urine Sodium 10 mEq/L 10/13/16 Unknown Urine Potassium 1.00 mEq/L 10/13/16 Unknown Urine Chloride 10.0 mEq/L (110-250) L 10/13/16 Unknown Urine Total Protein < 4 mg/dL (5-11.8) L 10/13/16 Unknown Vancomycin Trough 30.4 ug/mL (5.0-20.0) H 11/21/16 09:50 Random Vancomycin 20.8 ug/mL (0-40.0) 11/23/16 04:00 Ketones 107.3 mg/dL (0.2-2.8) H 10/13/16 04:22 Blood Type A POSITIVE 11/03/16 18:01 Antibody Screen Negative 11/03/16 18:01 Crossmatch See Detail 11/03/16 18:01
[2016-11-26] MEDS: LOVENOX SUB-Q SCH ×2 (16:20→21:49)
[2016-11-27] MEDS: FLAGYL 500 MG/100 ML 500 MG/100 ML BAG IV SCH ×3 (00:27→16:38)
[2016-11-27] MEDS: LOPRESSOR PO SCH ×5 (00:28→20:43)
[2016-11-27] MEDS: DILANTIN IV SCH ×3 (05:50→21:59)
[2016-11-27] MEDS: PEPCID PO SCH ×2 (09:59→21:59)
[2016-11-27] MEDS: PLAVIX PO SCH (09:59)
[2016-11-27] MEDS: LOVENOX SUB-Q SCH ×2 (09:59→21:59)
[2016-11-27] MEDS: LEVEMIR SUB-Q SCH (10:00)
--- NOTE | 2016-11-27 10:42 | Progress Note ---
Assessment and Plan Assessment and plan: Patient is a 66-year-old woman who presented with lethargy and altered mental status with possible anoxic injury unknown duration of how long she was down for she deteriorated and was intubated in emergency room, she was managed for DKA and she also developed sepsis due to UTI and right lower extremity ischemia- > Cold right foot which I discovered on Rounds on 10/17/16 and I asked the nurse for the bedside doppler which showed no pulse, My exam on the morning of morning has changed, she had a pulse right foot. Arterial duplex revealed a proximal right superficial femoral artery occlusion. I consulted and discussed with Vascular surgery, Dr. Eller ==>Acute ischemic right foot. 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 Remained very difficult to wean from the vent. Although eventually was tolerating pressure support. She subsequently went into cardiac arrest was resuscitated but this time was not able to recover back to following commands as previous before second cardiac arrest. Heparin was discontinued due to CPR. Vascular did not feel at this time that for reactivation of the right lower extremity was needed. Imaging studies were consented for anoxic encephalopathy and cortical irritability although no diagnosis of brain was noted. Dr. Mcclure discussed with family extensively and has informed them about real possibility of not having any meaningful neurological recovery. They agreed with transfer to a skilled facility with vent Ability. Case management is working and is meantime we'll continue current therapy and management. -S/P cardiopulomary arrest x 2 -A/C respiratory failure with hypercapnea -Seizure-Per family prior hx -DM, s/p DKA -Hyponatremia -Acute limb ischemia of right lower ext due to SFA thrombosis- s/p right BKA -LUCY/CKD 3 likely vasomotor nephropathy-resolved -Sepsis, Strept Group B tracheobronchitis, poa- Multifactorial -Anemia of chronic disease -Hematuria -Metabolic acidosis -Severe Hypokalemia-RESOLVED -Pancreatitis, acute, poa -Vaginal candidiasis -Hypernatremia -MSOF, poa Plan: * s/p EEG - findings consistent with anoxic encephalopathy and cortical irritability * Neurology notes intact brain stem * PSV as tolerated * Family updated about the very real possibility of not having any meaningful neurological recovery. all questions answered. Family meeting with daughter, and grandchild with greatgrand child in attendance. Case mangement and social work specialist and bedside nurse were also present. * Poor prognosis. * Plan for transfer to [facility] acute care facility pending * MRI brain with no gross abnormality * adjust insulin therapy * Neurologic input noted. EEG abnormal. * Heparin had to be held due to the risk associated considering recent CPR with chest compressions. * vascular following up on right BKA remains poor prognosis and likely will need a conversion to AKA. * Continue subcutaneous insulin and electrolyte replacement * Continue Cardizem and beta juan antonio * Monitor electrolytes and hemoglobin. * continue dilantin * DVT and GI prophylaxis New issue: ACUTE DVT IN THE RT.AXILLARY VEIN EXTENDING TO THE RT.BRACHIAL VEIN.RN INFORMED. Treated with therapeutic anticoagulation Poor prognosis History Interval history: Patient seen and examined. Follow up on respiratory failure, still intubated. Overnight uneventful. Imaging, old records, testing, labs, nursing notes reviewed. Hospitalist Physical - Physical exam Narrative exam: GEN: Intubated CVS: RRR, NORMAL S1S2 LUNGS/CHEST: Tachypnea NORMAL CHEST EXPANSION B, GOOD AIR ENTRY B ABD: SOFT +peg, GBS, NO REBOUND OR GUARDING NEURO: CN 2-12 GROSSLY INTACT, doesn't follow commands, eyes wondering PSY: Anxious New issue: right bka, tracheostomy and peg present - Constitutional Vitals: Temp Pulse Resp BP Pulse Ox 100.0 F H 80 26 H 170/68 100 11/27/16 04:00 11/27/16 08:14 11/27/16 08:14 11/27/16 08:14 11/27/16 08:14 General appearance: Present: other (intubated) Results - Labs CBC & Chem 7: 11/24/16 04:50 11/24/16 04:50 Labs: Laboratory Last Values WBC 9.9 K/mm3 (4.5-11.0) 11/24/16 04:50 RBC 2.74 M/mm3 (3.65-5.03) L 11/24/16 04:50 Hgb 8.4 gm/dl (10.1-14.3) L 11/24/16 04:50 Hct 26.1 % (30.3-42.9) L 11/24/16 04:50 MCV 95 fl (79-97) 11/24/16 04:50 MCH 31 pg (28-32) 11/24/16 04:50 MCHC 32 % (30-34) 11/24/16 04:50 RDW 16.0 % (13.2-15.2) H 11/24/16 04:50 Plt Count 289 K/mm3 (140-440) 11/24/16 04:50 Lymph % (Auto) 14.8 % (13.4-35.0) 11/22/16 11:49 [place] % (Auto) 6.7 % (0.0-7.3) 11/22/16 11:49 Eos % (Auto) 1.1 % (0.0-4.3) 11/22/16 11:49 Baso % (Auto) 0.6 % (0.0-1.8) 11/22/16 11:49 Lymph # 1.6 K/mm3 (1.2-5.4) 11/22/16 11:49 [place] # 0.7 K/mm3 (0.0-0.8) 11/22/16 11:49 Eos # 0.1 K/mm3 (0.0-0.4) 11/22/16 11:49 Baso # 0.1 K/mm3 (0.0-0.1) 11/22/16 11:49 Add Manual Diff Complete 11/18/16 13:00 Total Counted 100 11/18/16 13:00 Seg Neutrophils % 76.8 % (40.0-70.0) H 11/22/16 11:49 Seg Neuts % (Manual) 90.0 % (40.0-70.0) H 11/18/16 13:00 Band Neutrophils % 0 % 11/18/16 13:00 Lymphocytes % (Manual) 8.0 % (13.4-35.0) L 11/18/16 13:00 Reactive Lymphs % (Man) 0 % 11/18/16 13:00 Monocytes % (Manual) 2.0 % (0.0-7.3) 11/18/16 13:00 Eosinophils % (Manual) 0 % (0.0-4.3) 11/18/16 13:00 Basophils % (Manual) 0 % (0.0-1.8) 11/18/16 13:00 Metamyelocytes % 0 % 11/18/16 13:00 Myelocytes % 0 % 11/18/16 13:00 Promyelocytes % 0 % 11/18/16 13:00 Blast Cells % 0 % 11/18/16 13:00 Nucleated RBC % Not Reportable 11/18/16 13:00 Seg Neutrophils # 8.5 K/mm3 (1.8-7.7) H 11/22/16 11:49 Seg Neutrophils # Man 11.3 K/mm3 (1.8-7.7) H 11/18/16 13:00 Band Neutrophils # 0.0 K/mm3 11/18/16 13:00 Lymphocytes # (Manual) 1.0 K/mm3 (1.2-5.4) L 11/18/16 13:00 Abs React Lymphs (Man) 0.0 K/mm3 11/18/16 13:00 Monocytes # (Manual) 0.3 K/mm3 (0.0-0.8) 11/18/16 13:00 Eosinophils # (Manual) 0.0 K/mm3 (0.0-0.4) 11/18/16 13:00 Basophils # (Manual) 0.0 K/mm3 (0.0-0.1) 11/18/16 13:00 Metamyelocytes # 0.0 K/mm3 11/18/16 13:00 Myelocytes # 0.0 K/mm3 11/18/16 13:00 Promyelocytes # 0.0 K/mm3 11/18/16 13:00 Blast Cells # 0.0 K/mm3 11/18/16 13:00 Pathologist Review 10/29/16 09:30 WBC Morphology Not Reportable 11/18/16 13:00 Hypersegmented Neuts Not Reportable 11/18/16 13:00 Hyposegmented Neuts Not Reportable 11/18/16 13:00 Hypogranular Neuts Not Reportable 11/18/16 13:00 Hypersegmented Polys TNR 10/17/16 07:08 Smudge Cells Not Reportable 11/18/16 13:00 Toxic Granulation Not Reportable 11/18/16 13:00 Toxic Vacuolation Not Reportable 11/18/16 13:00 Dohle Bodies Not Reportable 11/18/16 13:00 Pelger-Huet Anomaly Not Reportable 11/18/16 13:00 [place] Rods Not Reportable 11/18/16 13:00 Platelet Estimate Consistent w auto 11/18/16 13:00 Clumped Platelets Not Reportable 11/18/16 13:00 Plt Clumps, EDTA Not Reportable 11/18/16 13:00 Large Platelets Not Reportable 11/18/16 13:00 Giant Platelets Not Reportable 11/18/16 13:00 Platelet Satelliting Not Reportable 11/18/16 13:00 Plt Morphology Comment Not Reportable 11/18/16 13:00 RBC Morphology Not Reportable 11/18/16 13:00 Dimorphic RBCs Not Reportable 11/18/16 13:00 Polychromasia Not Reportable 11/18/16 13:00 Hypochromasia Not Reportable 11/18/16 13:00 Poikilocytosis Not Reportable 11/18/16 13:00 Basophilic Stippling TNR 10/17/16 07:08 Anisocytosis 1+ 11/18/16 13:00 Microcytosis Not Reportable 11/18/16 13:00 Macrocytosis Not Reportable 11/18/16 13:00 Spherocytes Not Reportable 11/18/16 13:00 Pappenheimer Bodies Not Reportable 11/18/16 13:00 Sickle Cells Not Reportable 11/18/16 13:00 Target Cells Not Reportable 11/18/16 13:00 Tear Drop Cells Not Reportable 11/18/16 13:00 Ovalocytes Not Reportable 11/18/16 13:00 Stomatocytes Few 11/03/16 00:05 Helmet Cells Not Reportable 11/18/16 13:00 [place] Bodies Not Reportable 11/18/16 13:00 [place] Rings Not Reportable 11/18/16 13:00 [place] Cells Not Reportable 11/18/16 13:00 Bite Cells Not Reportable 11/18/16 13:00 Crenated Cell Not Reportable 11/18/16 13:00 Elliptocytes Not Reportable 11/18/16 13:00 Acanthocytes (Spur) Not Reportable 11/18/16 13:00 Rouleaux Not Reportable 11/18/16 13:00 Hemoglobin C Crystals Not Reportable 11/18/16 13:00 Schistocytes Not Reportable 11/18/16 13:00 Malaria parasites Not Reportable 11/18/16 13:00 David Bodies Not Reportable 11/18/16 13:00 Hem Pathologist Commnt No 11/18/16 13:00 PT 20.1 Sec. (12.2-14.9) H 11/18/16 05:45 INR 1.72 (0.87-1.13) H 11/18/16 05:45 APTT 131.1 Sec. (24.2-36.6) H* 11/18/16 05:45 Heparin Anti-Xa Level 0.51 U.I./ml (0.3-0.7) 11/18/16 11:16 POC ABG pH 7.492 (7.35-7.45) H 11/22/16 20:04 POC ABG pCO2 23.2 (35-45) L 11/22/16 20:04 POC ABG pO2 60 (80-105) L 11/22/16 20:04 POC ABG HCO3 17.8 11/22/16 20:04 POC ABG Total CO2 18 11/22/16 20:04 POC ABG O2 Sat 93 11/22/16 20:04 POC ABG Base Excess -6 11/22/16 20:04 VBG pH 7.020 (7.320-7.420) L* 10/13/16 04:22 FiO2 35 % 11/22/16 20:04 Sodium 133 mmol/L (137-145) L 11/24/16 04:50 Potassium 3.8 mmol/L (3.6-5.0) 11/24/16 04:50 Chloride 99.3 mmol/L (98-107) 11/24/16 04:50 Carbon Dioxide 19 mmol/L (22-30) L 11/24/16 04:50 Anion Gap 19 mmol/L 11/24/16 04:50 BUN 23 mg/dL (7-17) H 11/24/16 04:50 Creatinine 0.9 mg/dL (0.7-1.2) 11/24/16 04:50 Estimated GFR > 60 ml/min 11/24/16 04:50 BUN/Creatinine Ratio 25.55 % 11/24/16 04:50 Glucose 200 mg/dL (65-100) H 11/24/16 04:50 POC Glucose 182 (70-105) H 11/27/16 05:49 Osmolality 332 Mosm/kg 10/14/16 07:03 Lactic Acid 1.8 mmol/L (0.7-2.0) 10/14/16 07:03 Calcium 7.2 mg/dL (8.4-10.2) L 11/24/16 04:50 Phosphorus 2.7 mg/dL (2.5-4.5) D 10/21/16 Unknown Magnesium 2.0 mg/dL (1.7-2.3) 11/20/16 05:00 Total Bilirubin 0.2 mg/dL (0.1-1.2) 11/19/16 04:30 AST 9 units/L (5-40) 11/19/16 04:30 ALT 7 units/L (7-56) 11/19/16 04:30 Alkaline Phosphatase 82 units/L (35-129) 11/19/16 04:30 Ammonia 35.0 umol/L (25-60) 10/13/16 05:40 Total Creatine Kinase 107 units/L (30-135) 10/13/16 04:22 CK-MB (CK-2) 3.1 ng/mL (0.0-4.0) 10/13/16 04:22 CK-MB (CK-2) Rel Index 2.8 (0-4) 10/13/16 04:22 Troponin T < 0.010 ng/mL (0.00-0.029) 10/14/16 18:55 C-Reactive Protein 10.50 mg/dL (0.00-1.30) H 10/13/16 16:14 Total Protein 5.5 g/dL (6.3-8.2) L 11/19/16 04:30 Albumin 2.1 g/dL (3.9-5) L 11/19/16 04:30 Albumin/Globulin Ratio 0.6 % 11/19/16 04:30 Amylase 30 units/L (27-131) 11/10/16 04:30 Lipase 41 units/L (13-60) 11/10/16 04:30 Vitamin B12 976.8 pg/mL (211-911) H 10/22/16 10:25 TSH 0.162 mlU/mL (0.270-4.200) L 10/22/16 14:50 Free T4 0.77 ng/dL (0.76-1.46) 10/22/16 14:50 Urine Color Yellow (Yellow) 11/14/16 19:39 Urine Turbidity Cloudy (Clear) 11/14/16 19:39 Urine pH 6.0 (5.0-7.0) 11/14/16 19:39 Ur Specific [place] 1.010 (1.003-1.030) 11/14/16 19:39 Urine Protein 30 mg/dl mg/dL (Negative) 11/14/16 19:39 Urine Glucose (UA) 50 mg/dL (Negative) 11/14/16 19:39 Urine Ketones 20 mg/dL (Negative) 11/14/16 19:39 Urine Blood Lg (Negative) 11/14/16 19:39 Urine Nitrite Neg (Negative) 11/14/16 19:39 Urine Bilirubin Neg (Negative) 11/14/16 19:39 Urine Urobilinogen < 2.0 mg/dL (<2.0) 11/14/16 19:39 Ur Leukocyte Esterase Sm (Negative) 11/14/16 19:39 Urine WBC (Auto) 3.0 /HPF (0.0-6.0) 11/14/16 19:39 Urine RBC (Auto) > 182.0 /HPF (0.0-6.0) 11/14/16 19:39 U Epithel Cells (Auto) 1.0 /HPF (0-13.0) 10/15/16 11:05 Urine Bacteria (Auto) 1+ /HPF (Negative) 11/14/16 19:39 Urine Mucus Few /HPF 11/14/16 19:39 Urine Yeast (Budding) 2+ /HPF 10/15/16 11:05 Urine Osmolality 487 Mosm/kg 10/13/16 Unknown Urine Creatinine < 4.2 mg/dL (0.1-20.0) 10/13/16 Unknown Protein/Creatinin Ratio 0.00 10/13/16 Unknown Urine Sodium 10 mEq/L 10/13/16 Unknown Urine Potassium 1.00 mEq/L 10/13/16 Unknown Urine Chloride 10.0 mEq/L (110-250) L 10/13/16 Unknown Urine Total Protein < 4 mg/dL (5-11.8) L 10/13/16 Unknown Vancomycin Trough 30.4 ug/mL (5.0-20.0) H 11/21/16 09:50 Random Vancomycin 20.8 ug/mL (0-40.0) 11/23/16 04:00 Ketones 107.3 mg/dL (0.2-2.8) H 10/13/16 04:22 Blood Type A POSITIVE 11/03/16 18:01 Antibody Screen Negative 11/03/16 18:01 Crossmatch See Detail 11/03/16 18:01
[2016-11-27] MEDS ORDERED: LASIX IV ONE ×2 (11:00→17:00)
[2016-11-27] MEDS ORDERED: NORMODYNE IV PRN (12:05)
[2016-11-27] MEDS: DURAGESIC TD SCH (14:52)
--- NOTE | 2016-11-27 15:11 | Progress Note ---
Assessment and Plan Pt's wounds have further demarcated. Necrotic tissue along incision. No evidence of wound infection. Pt's BP presently was 200's/mid 100's after trial of cpap. Nurse has given prn BP medications. Pt will likely need conversion to AKA if she recovers neurologically. Would not recommend surgical intervention at present, which would risk further deterioration to her overall medical condition. - Patient Problems (1) Ischemia of right lower extremity Current Visit: Yes Status: Acute (2) DKA (diabetic ketoacidoses) Current Visit: Yes Status: Acute Qualifiers: Diabetes mellitus type: D Diabetes mellitus complication detail: D (3) Acute on chronic renal failure Current Visit: Yes Status: Acute (4) Altered mental status Current Visit: Yes Status: Acute Qualifiers: Altered mental status type: A Coma depth: C Coma timing: C (5) Diabetes Current Visit: Yes Status: Chronic Qualifiers: Diabetes mellitus type: D Diabetes mellitus complication status: D Diabetes mellitus complication detail: D Diabetic retinopathy severity: D Proliferative retinopathy type: P Diabetes mellitus macular edema: D Diabetes mellitus detention insulin use: D Laterality: L Chronic kidney disease stage: C (6) Dyslipidemia Current Visit: No Status: Chronic (7) Hypertension Current Visit: No Status: Chronic Qualifiers: Hypertension type: H Subjective Date of service: 11/27/16 Principal diagnosis: respiratory failure on mechanical ventilatory support, DKA Interval history: Patient on mechanical ventilation via trach Objective - Constitutional Vitals: Vital Signs - 12hr 11/27/16 11/27/16 11/27/16 03:30 04:00 04:24 Temperature 100.0 F H Pulse Rate 77 77 Pulse Rate [ 80 Left Posterior Tibial] Respiratory 26 H 26 H Rate Blood Pressure 150/62 146/60 O2 Sat by Pulse 100 99 Oximetry 11/27/16 11/27/16 11/27/16 04:30 05:00 05:30 Temperature Pulse Rate 81 78 81 Pulse Rate [ Left Posterior Tibial] Respiratory 27 H 27 H 17 Rate Blood Pressure 146/60 152/57 152/57 O2 Sat by Pulse 100 100 100 Oximetry 11/27/16 11/27/16 11/27/16 05:50 06:00 06:30 Temperature Pulse Rate 80 75 75 Pulse Rate [ Left Posterior Tibial] Respiratory 17 24 Rate Blood Pressure 152/57 156/55 156/55 O2 Sat by Pulse 96 100 Oximetry 11/27/16 11/27/16 11/27/16 06:33 07:00 07:30 Temperature Pulse Rate 79 73 73 Pulse Rate [ Left Posterior Tibial] Respiratory 22 17 Rate Blood Pressure 156/55 155/61 155/61 O2 Sat by Pulse 100 98 100 Oximetry 11/27/16 11/27/16 11/27/16 08:00 08:14 08:30 Temperature Pulse Rate 78 80 82 Pulse Rate [ Left Posterior Tibial] Respiratory 25 H 26 H 32 H Rate Blood Pressure 159/70 170/68 170/68 O2 Sat by Pulse 98 100 100 Oximetry 11/27/16 11/27/16 11/27/16 09:00 09:30 10:00 Temperature Pulse Rate 84 84 87 Pulse Rate [ Left Posterior Tibial] Respiratory 33 H 31 H 33 H Rate Blood Pressure 172/72 172/72 180/73 O2 Sat by Pulse 98 100 97 Oximetry 11/27/16 11/27/16 11/27/16 10:30 11:00 11:26 Temperature Pulse Rate 95 H 102 H 103 H Pulse Rate [ Left Posterior Tibial] Respiratory 32 H 40 H Rate Blood Pressure 180/73 230/114 249/115 O2 Sat by Pulse 100 Oximetry 11/27/16 11/27/16 11/27/16 12:00 12:54 13:15 Temperature 99.5 F Pulse Rate 94 H 97 H Pulse Rate [ Left Posterior Tibial] Respiratory Rate Blood Pressure 223/93 229/88 O2 Sat by Pulse 100 Oximetry 11/27/16 14:52 Temperature Pulse Rate Pulse Rate [ Left Posterior Tibial] Respiratory 36 H Rate Blood Pressure O2 Sat by Pulse Oximetry General appearance: Present: no acute distress - Respiratory Respiratory effort: other (back on mechanical ventilation following trial of CPAP) Extremities: abnormal (bandage removed and wounds examined. The blackened eschar/tissue necrosis along the incision (see dictation) no erythema, odor, or drainage appreciated) - Psychiatric Psychiatric: no appropriate mood/affect, no intact judgment & insight, no cooperative - Labs CBC & Chem 7: 11/24/16 04:50 11/24/16 04:50 Labs: Abnormal lab results 11/26/16 11/26/16 11/26/16 Range/Units 12:05 17:05 23:46 POC Glucose 260 H 193 H 183 H (70-105) 11/27/16 Range/Units 05:49 POC Glucose 182 H (70-105)
--- NOTE | 2016-11-27 15:58 | Progress Note ---
Assessment and Plan - Patient Problems (1) Acute respiratory failure with hypercapnia Current Visit: Yes Status: Acute Plan to address problem: Continue with mechanical ventilatory support. Weaning/Spontaneous breathing trials as tolerated VAP bundle Critical bundles addressed Agitation management HOB >40, aspiration precautions VTE/Stress ulcer prophylaxis SAT/SBT Glycemic control (2) DKA (diabetic ketoacidoses) Current Visit: Yes Status: Acute Qualifiers: Diabetes mellitus type: D Diabetes mellitus complication detail: D Plan to address problem: Continue with accucheck and glycemic control. Monitor closely (3) Altered mental status Current Visit: Yes Status: Acute Qualifiers: Altered mental status type: A Coma depth: C Coma timing: C Plan to address problem: Toxic, metabolic, anoxia. Continue to monitor (4) Acidosis Current Visit: Yes Status: Acute (5) Acute on chronic renal failure Current Visit: Yes Status: Acute Plan to address problem: Monitor renal function and electrolytes. Avoid nephrotoxic agents, adjust all medications for creatinine clearance (6) Sepsis Current Visit: Yes Status: Acute Qualifiers: Sepsis type: S Plan to address problem: Blood cultures, urine cultures Broaden antibiotic therapy while awaiting culture results especially with worsening acidosis. Remains hemodynamically stable (7) Cold foot Current Visit: Yes Status: Acute Qualifiers: Laterality: L Plan to address problem: s/p BKA (8) DVT (deep venous thrombosis) Current Visit: Yes Status: Acute Qualifiers: DVT location: upper extremity Affected thrombotic vein of extremity: A Laterality: L Chronicity: C Plan to address problem: Get Doppler of the right upper extremity. Discontinue RUE PICC line Start lovenox and coumadin (9) Discharge planning issues Current Visit: Yes Status: Acute Plan to address problem: Discussed discharge care plan with the case management in the critical care unit. updated at the bedside. Subjective Date of service: 11/27/16 Principal diagnosis: respiratory failure on mechanical ventilatory support, DKA Interval history: Patient seen and examined. Vitals, labs, medications, chart reviewed On-going encephalopathy and agitation Tolerates PSV 20/5 s/p tracheostomy Right UExt DVT at the bedside. Seen and examined. Vitals, labs, medications and chart reviewed. Objective - Exam Narrative Exam: GEN: Intubated CVS: RRR, NORMAL S1S2 LUNGS/CHEST: Tachypnea NORMAL CHEST EXPANSION B, GOOD AIR ENTRY B ABD: SOFT +peg, GBS, NO REBOUND OR GUARDING NEURO: CN 2-12 GROSSLY INTACT, doesn't follow commands, eyes wondering Vital Signs - 12hr 11/27/16 11/27/16 11/27/16 04:00 04:24 04:30 Temperature 100.0 F H Pulse Rate 77 81 Pulse Rate [ 80 Left Posterior Tibial] Respiratory 26 H 27 H Rate Blood Pressure 146/60 146/60 O2 Sat by Pulse 99 100 Oximetry O2 Sat by Pulse Oximetry [ Assessment] 11/27/16 11/27/16 11/27/16 05:00 05:30 05:50 Temperature Pulse Rate 78 81 80 Pulse Rate [ Left Posterior Tibial] Respiratory 27 H 17 Rate Blood Pressure 152/57 152/57 152/57 O2 Sat by Pulse 100 100 Oximetry O2 Sat by Pulse Oximetry [ Assessment] 11/27/16 11/27/16 11/27/16 06:00 06:30 06:33 Temperature Pulse Rate 75 75 79 Pulse Rate [ Left Posterior Tibial] Respiratory 17 24 Rate Blood Pressure 156/55 156/55 156/55 O2 Sat by Pulse 96 100 100 Oximetry O2 Sat by Pulse Oximetry [ Assessment] 11/27/16 11/27/16 11/27/16 07:00 07:30 08:00 Temperature Pulse Rate 73 73 78 Pulse Rate [ Left Posterior Tibial] Respiratory 22 17 25 H Rate Blood Pressure 155/61 155/61 159/70 O2 Sat by Pulse 98 100 98 Oximetry O2 Sat by Pulse Oximetry [ Assessment] 11/27/16 11/27/16 11/27/16 08:14 08:30 09:00 Temperature Pulse Rate 80 82 84 Pulse Rate [ Left Posterior Tibial] Respiratory 26 H 32 H 33 H Rate Blood Pressure 170/68 170/68 172/72 O2 Sat by Pulse 100 100 98 Oximetry O2 Sat by Pulse Oximetry [ Assessment] 11/27/16 11/27/16 11/27/16 09:30 10:00 10:30 Temperature Pulse Rate 84 87 95 H Pulse Rate [ Left Posterior Tibial] Respiratory 31 H 33 H 32 H Rate Blood Pressure 172/72 180/73 180/73 O2 Sat by Pulse 100 97 100 Oximetry O2 Sat by Pulse Oximetry [ Assessment] 11/27/16 11/27/16 11/27/16 11:00 11:26 12:00 Temperature Pulse Rate 102 H 103 H 94 H Pulse Rate [ Left Posterior Tibial] Respiratory 40 H Rate Blood Pressure 230/114 249/115 223/93 O2 Sat by Pulse 100 Oximetry O2 Sat by Pulse Oximetry [ Assessment] 11/27/16 11/27/16 11/27/16 12:54 13:15 14:52 Temperature 99.5 F Pulse Rate 97 H Pulse Rate [ Left Posterior Tibial] Respiratory 36 H Rate Blood Pressure 229/88 O2 Sat by Pulse Oximetry O2 Sat by Pulse Oximetry [ Assessment] 11/27/16 15:14 Temperature Pulse Rate Pulse Rate [ Left Posterior Tibial] Respiratory Rate Blood Pressure O2 Sat by Pulse Oximetry O2 Sat by Pulse 99 Oximetry [ Assessment] Constitutional: no acute distress, lethargic, appears uncomfortable, other ( Patient S/P CPR. Patient likely has anoxic encephalopathy) Eyes: non-icteric ENT: oropharynx moist Neck: supple, no lymphadenopathy Effort: mildly labored Ascultation: Bilateral: clear, diminished breath sounds, rales Cardiovascular: regular rate and rhythm Gastrointestinal: normoactive bowel sounds, soft, non-distended, other ( Gastrostomy tube) Integumentary: normal Extremities: no cyanosis, no edema, no ischemia or petechiae, other (s/p right BKA. right UExt Edema) Neurologic: unable to assess, other (encephalopathic) Psychiatric: other (encephalopathic) CBC and BMP: 11/24/16 04:50 11/24/16 04:50 ABG, PT/INR, D-dimer: ABG POC ABG pH 7.492 (7.35-7.45) H 11/22/16 20:04 POC ABG pCO2 23.2 (35-45) L 11/22/16 20:04 POC ABG pO2 60 (80-105) L 11/22/16 20:04 POC ABG HCO3 17.8 11/22/16 20:04 POC ABG Total CO2 18 11/22/16 20:04 POC ABG O2 Sat 93 11/22/16 20:04 PT/INR, D-dimer PT 20.1 Sec. (12.2-14.9) H 11/18/16 05:45 INR 1.72 (0.87-1.13) H 11/18/16 05:45 Abnormal lab findings: Abnormal Labs 10/13/16 10/13/16 10/13/16 06:38 06:38 07:23 WBC RBC Hgb Hct MCV RDW Plt Count Lymph % (Auto) [place] % (Auto) [place] # Seg Neutrophils % Seg Neuts % (Manual) Lymphocytes % (Manual) Monocytes % (Manual) Basophils % (Manual) Nucleated RBC % Seg Neutrophils # Seg Neutrophils # Man Lymphocytes # (Manual) Monocytes # (Manual) Eosinophils # (Manual) Basophils # (Manual) PT INR APTT Heparin Anti-Xa Level POC ABG pH POC ABG pCO2 POC ABG pO2 Sodium Potassium 6.2 H* Chloride Carbon Dioxide 8 L* BUN 85 H Creatinine 2.8 H Glucose 602 H* POC Glucose 495 H Calcium 7.9 L Phosphorus 6.9 H D Magnesium 3.0 H AST Alkaline Phosphatase C-Reactive Protein Total Protein Albumin Lipase Vitamin B12 TSH Urine WBC (Auto) Urine Chloride Urine Total Protein Vancomycin Trough Crossmatch 10/13/16 10/13/16 10/13/16 08:49 08:55 10:12 WBC RBC Hgb Hct MCV RDW Plt Count Lymph % (Auto) [place] % (Auto) [place] # Seg Neutrophils % Seg Neuts % (Manual) Lymphocytes % (Manual) Monocytes % (Manual) Basophils % (Manual) Nucleated RBC % Seg Neutrophils # Seg Neutrophils # Man Lymphocytes # (Manual) Monocytes # (Manual) Eosinophils # (Manual) Basophils # (Manual) PT INR APTT Heparin Anti-Xa Level POC ABG pH POC ABG pCO2 POC ABG pO2 Sodium Potassium 5.6 H Chloride Carbon Dioxide 11 L BUN 77 H Creatinine 2.7 H Glucose 457 H POC Glucose > 500 H 424 H Calcium 8.0 L Phosphorus Magnesium AST Alkaline Phosphatase C-Reactive Protein Total Protein Albumin Lipase Vitamin B12 TSH Urine WBC (Auto) Urine Chloride Urine Total Protein Vancomycin Trough Crossmatch 10/13/16 10/13/16 10/13/16 10:44 11:22 12:20 WBC RBC Hgb Hct MCV RDW Plt Count Lymph % (Auto) [place] % (Auto) [place] # Seg Neutrophils % Seg Neuts % (Manual) Lymphocytes % (Manual) Monocytes % (Manual) Basophils % (Manual) Nucleated RBC % Seg Neutrophils # Seg Neutrophils # Man Lymphocytes # (Manual) Monocytes # (Manual) Eosinophils # (Manual) Basophils # (Manual) PT INR APTT Heparin Anti-Xa Level POC ABG pH POC ABG pCO2 POC ABG pO2 Sodium Potassium 5.4 H Chloride Carbon Dioxide 14 L BUN 72 H Creatinine 2.6 H Glucose 383 H POC Glucose 391 H 313 H Calcium 8.2 L Phosphorus Magnesium AST Alkaline Phosphatase C-Reactive Protein Total Protein Albumin Lipase Vitamin B12 TSH Urine WBC (Auto) Urine Chloride Urine Total Protein Vancomycin Trough Crossmatch 10/13/16 10/13/16 10/13/16 13:32 14:44 15:57 WBC RBC Hgb Hct MCV RDW Plt Count Lymph % (Auto) [place] % (Auto) [place] # Seg Neutrophils % Seg Neuts % (Manual) Lymphocytes % (Manual) Monocytes % (Manual) Basophils % (Manual) Nucleated RBC % Seg Neutrophils # Seg Neutrophils # Man Lymphocytes # (Manual) Monocytes # (Manual) Eosinophils # (Manual) Basophils # (Manual) PT INR APTT Heparin Anti-Xa Level POC ABG pH POC ABG pCO2 POC ABG pO2 Sodium Potassium Chloride Carbon Dioxide BUN Creatinine Glucose POC Glucose 296 H 210 H 190 H Calcium Phosphorus Magnesium AST Alkaline Phosphatase C-Reactive Protein Total Protein Albumin Lipase Vitamin B12 TSH Urine WBC (Auto) Urine Chloride Urine Total Protein Vancomycin Trough Crossmatch 10/13/16 10/13/16 10/13/16 16:14 16:14 17:17 WBC RBC Hgb Hct MCV RDW Plt Count Lymph % (Auto) [place] % (Auto) [place] # Seg Neutrophils % Seg Neuts % (Manual) Lymphocytes % (Manual) Monocytes % (Manual) Basophils % (Manual) Nucleated RBC % Seg Neutrophils # Seg Neutrophils # Man Lymphocytes # (Manual) Monocytes # (Manual) Eosinophils # (Manual) Basophils # (Manual) PT INR APTT Heparin Anti-Xa Level POC ABG pH POC ABG pCO2 POC ABG pO2 Sodium Potassium Chloride Carbon Dioxide 17 L BUN 58 H Creatinine 1.8 H Glucose 172 H POC Glucose 193 H Calcium 7.7 L Phosphorus Magnesium AST Alkaline Phosphatase C-Reactive Protein 10.50 H Total Protein Albumin Lipase Vitamin B12 TSH Urine WBC (Auto) Urine Chloride Urine Total Protein Vancomycin Trough Crossmatch 10/13/16 10/13/16 10/13/16 17:55 18:32 19:41 WBC RBC Hgb Hct MCV RDW Plt Count Lymph % (Auto) [place] % (Auto) [place] # Seg Neutrophils % Seg Neuts % (Manual) Lymphocytes % (Manual) Monocytes % (Manual) Basophils % (Manual) Nucleated RBC % Seg Neutrophils # Seg Neutrophils # Man Lymphocytes # (Manual) Monocytes # (Manual) Eosinophils # (Manual) Basophils # (Manual) PT INR APTT Heparin Anti-Xa Level POC ABG pH POC ABG pCO2 30.6 L POC ABG pO2 218 H Sodium Potassium Chloride Carbon Dioxide BUN Creatinine Glucose POC Glucose 192 H 177 H Calcium Phosphorus Magnesium AST Alkaline Phosphatase C-Reactive Protein Total Protein Albumin Lipase Vitamin B12 TSH Urine WBC (Auto) Urine Chloride Urine Total Protein Vancomycin Trough Crossmatch 10/13/16 10/13/16 10/13/16 20:54 22:07 23:13 WBC RBC Hgb Hct MCV RDW Plt Count Lymph % (Auto) [place] % (Auto) [place] # Seg Neutrophils % Seg Neuts % (Manual) Lymphocytes % (Manual) Monocytes % (Manual) Basophils % (Manual) Nucleated RBC % Seg Neutrophils # Seg Neutrophils # Man Lymphocytes # (Manual) Monocytes # (Manual) Eosinophils # (Manual) Basophils # (Manual) PT INR APTT Heparin Anti-Xa Level POC ABG pH POC ABG pCO2 POC ABG pO2 Sodium Potassium Chloride Carbon Dioxide BUN Creatinine Glucose POC Glucose 178 H 160 H 168 H Calcium Phosphorus Magnesium AST Alkaline Phosphatase C-Reactive Protein Total Protein Albumin Lipase Vitamin B12 TSH Urine WBC (Auto) Urine Chloride Urine Total Protein Vancomycin Trough Crossmatch 10/13/16 10/13/16 10/14/16 23:25 Unknown 00:21 WBC RBC Hgb Hct MCV RDW Plt Count Lymph % (Auto) [place] % (Auto) [place] # Seg Neutrophils % Seg Neuts % (Manual) Lymphocytes % (Manual) Monocytes % (Manual) Basophils % (Manual) Nucleated RBC % Seg Neutrophils # Seg Neutrophils # Man Lymphocytes # (Manual) Monocytes # (Manual) Eosinophils # (Manual) Basophils # (Manual) PT INR APTT Heparin Anti-Xa Level POC ABG pH POC ABG pCO2 POC ABG pO2 Sodium 148 H Potassium Chloride 114.6 H Carbon Dioxide 17 L BUN 56 H Creatinine 1.6 H Glucose 151 H POC Glucose 171 H Calcium 7.8 L Phosphorus Magnesium AST Alkaline Phosphatase C-Reactive Protein Total Protein Albumin Lipase Vitamin B12 TSH Urine WBC (Auto) Urine Chloride 10.0 L Urine Total Protein < 4 L Vancomycin Trough Crossmatch 10/14/16 10/14/16 10/14/16 01:22 02:29 03:30 WBC RBC Hgb Hct MCV RDW Plt Count Lymph % (Auto) [place] % (Auto) [place] # Seg Neutrophils % Seg Neuts % (Manual) Lymphocytes % (Manual) Monocytes % (Manual) Basophils % (Manual) Nucleated RBC % Seg Neutrophils # Seg Neutrophils # Man Lymphocytes # (Manual) Monocytes # (Manual) Eosinophils # (Manual) Basophils # (Manual) PT INR APTT Heparin Anti-Xa Level POC ABG pH POC ABG pCO2 POC ABG pO2 Sodium Potassium Chloride Carbon Dioxide BUN Creatinine Glucose POC Glucose 144 H 136 H 143 H Calcium Phosphorus Magnesium AST Alkaline Phosphatase C-Reactive Protein Total Protein Albumin Lipase Vitamin B12 TSH Urine WBC (Auto) Urine Chloride Urine Total Protein Vancomycin Trough Crossmatch 10/14/16 10/14/16 10/14/16 04:28 05:16 05:44 WBC RBC Hgb Hct MCV RDW Plt Count Lymph % (Auto) [place] % (Auto) [place] # Seg Neutrophils % Seg Neuts % (Manual) Lymphocytes % (Manual) Monocytes % (Manual) Basophils % (Manual) Nucleated RBC % Seg Neutrophils # Seg Neutrophils # Man Lymphocytes # (Manual) Monocytes # (Manual) Eosinophils # (Manual) Basophils # (Manual) PT INR APTT Heparin Anti-Xa Level POC ABG pH POC ABG pCO2 28.2 L POC ABG pO2 125 H Sodium Potassium Chloride Carbon Dioxide BUN Creatinine Glucose POC Glucose 133 H 160 H Calcium Phosphorus Magnesium AST Alkaline Phosphatase C-Reactive Protein Total Protein Albumin Lipase Vitamin B12 TSH Urine WBC (Auto) Urine Chloride Urine Total Protein Vancomycin Trough Crossmatch 10/14/16 10/14/16 10/14/16 06:12 06:45 07:03 WBC RBC Hgb Hct MCV RDW Plt Count Lymph % (Auto) [place] % (Auto) [place] # Seg Neutrophils % Seg Neuts % (Manual) Lymphocytes % (Manual) Monocytes % (Manual) Basophils % (Manual) Nucleated RBC % Seg Neutrophils # Seg Neutrophils # Man Lymphocytes # (Manual) Monocytes # (Manual) Eosinophils # (Manual) Basophils # (Manual) PT INR APTT Heparin Anti-Xa Level POC ABG pH POC ABG pCO2 POC ABG pO2 Sodium 149 H Potassium Chloride 115.4 H Carbon Dioxide 17 L BUN 45 H Creatinine 1.5 H Glucose 139 H POC Glucose 149 H Calcium 7.4 L Phosphorus 1.0 L D Magnesium AST Alkaline Phosphatase C-Reactive Protein Total Protein Albumin Lipase Vitamin B12 TSH Urine WBC (Auto) Urine Chloride Urine Total Protein Vancomycin Trough Crossmatch 10/14/16 10/14/16 10/14/16 07:03 08:02 09:16 WBC RBC Hgb Hct MCV RDW Plt Count Lymph % (Auto) [place] % (Auto) [place] # Seg Neutrophils % Seg Neuts % (Manual) Lymphocytes % (Manual) Monocytes % (Manual) Basophils % (Manual) Nucleated RBC % Seg Neutrophils # Seg Neutrophils # Man Lymphocytes # (Manual) Monocytes # (Manual) Eosinophils # (Manual) Basophils # (Manual) PT INR APTT Heparin Anti-Xa Level POC ABG pH POC ABG pCO2 POC ABG pO2 Sodium Potassium Chloride Carbon Dioxide BUN Creatinine Glucose POC Glucose 156 H 158 H Calcium Phosphorus Magnesium AST Alkaline Phosphatase C-Reactive Protein Total Protein Albumin Lipase 738 H Vitamin B12 TSH Urine WBC (Auto) Urine Chloride Urine Total Protein Vancomycin Trough Crossmatch 10/14/16 10/14/16 10/14/16 10:26 11:03 11:57 WBC RBC Hgb Hct MCV RDW Plt Count Lymph % (Auto) [place] % (Auto) [place] # Seg Neutrophils % Seg Neuts % (Manual) Lymphocytes % (Manual) Monocytes % (Manual) Basophils % (Manual) Nucleated RBC % Seg Neutrophils # Seg Neutrophils # Man Lymphocytes # (Manual) Monocytes # (Manual) Eosinophils # (Manual) Basophils # (Manual) PT INR APTT Heparin Anti-Xa Level POC ABG pH 7.198 L POC ABG pCO2 47.5 H POC ABG pO2 Sodium Potassium Chloride Carbon Dioxide BUN Creatinine Glucose POC Glucose 174 H 189 H Calcium Phosphorus Magnesium AST Alkaline Phosphatase C-Reactive Protein Total Protein Albumin Lipase Vitamin B12 TSH Urine WBC (Auto) Urine Chloride Urine Total Protein Vancomycin Trough Crossmatch 10/14/16 10/14/16 10/14/16 12:02 12:02 13:11 WBC 13.4 H RBC 3.60 L Hgb Hct MCV 98 H D RDW 13.1 L Plt Count Lymph % (Auto) [place] % (Auto) [place] # Seg Neutrophils % Seg Neuts % (Manual) Lymphocytes % (Manual) Monocytes % (Manual) Basophils % (Manual) Nucleated RBC % Seg Neutrophils # Seg Neutrophils # Man Lymphocytes # (Manual) Monocytes # (Manual) Eosinophils # (Manual) Basophils # (Manual) PT INR APTT Heparin Anti-Xa Level POC ABG pH POC ABG pCO2 POC ABG pO2 Sodium Potassium Chloride 110.7 H Carbon Dioxide 19 L BUN 38 H Creatinine 1.4 H Glucose 182 H POC Glucose 173 H Calcium 7.5 L Phosphorus Magnesium AST Alkaline Phosphatase C-Reactive Protein Total Protein Albumin Lipase Vitamin B12 TSH Urine WBC (Auto) Urine Chloride Urine Total Protein Vancomycin Trough Crossmatch 10/14/16 10/14/16 10/14/16 14:24 15:31 16:36 WBC RBC Hgb Hct MCV RDW Plt Count Lymph % (Auto) [place] % (Auto) [place] # Seg Neutrophils % Seg Neuts % (Manual) Lymphocytes % (Manual) Monocytes % (Manual) Basophils % (Manual) Nucleated RBC % Seg Neutrophils # Seg Neutrophils # Man Lymphocytes # (Manual) Monocytes # (Manual) Eosinophils # (Manual) Basophils # (Manual) PT INR APTT Heparin Anti-Xa Level POC ABG pH POC ABG pCO2 POC ABG pO2 Sodium Potassium Chloride Carbon Dioxide BUN Creatinine Glucose POC Glucose 123 H 124 H 156 H Calcium Phosphorus Magnesium AST Alkaline Phosphatase C-Reactive Protein Total Protein Albumin Lipase Vitamin B12 TSH Urine WBC (Auto) Urine Chloride Urine Total Protein Vancomycin Trough Crossmatch 10/14/16 10/14/16 10/14/16 17:43 19:00 20:08 WBC RBC Hgb Hct MCV RDW Plt Count Lymph % (Auto) [place] % (Auto) [place] # Seg Neutrophils % Seg Neuts % (Manual) Lymphocytes % (Manual) Monocytes % (Manual) Basophils % (Manual) Nucleated RBC % Seg Neutrophils # Seg Neutrophils # Man Lymphocytes # (Manual) Monocytes # (Manual) Eosinophils # (Manual) Basophils # (Manual) PT INR APTT Heparin Anti-Xa Level POC ABG pH POC ABG pCO2 POC ABG pO2 Sodium Potassium Chloride Carbon Dioxide BUN Creatinine Glucose POC Glucose 154 H 123 H 138 H Calcium Phosphorus Magnesium AST Alkaline Phosphatase C-Reactive Protein Total Protein Albumin Lipase Vitamin B12 TSH Urine WBC (Auto) Urine Chloride Urine Total Protein Vancomycin Trough Crossmatch 10/14/16 10/14/16 10/14/16 21:17 22:25 23:37 WBC RBC Hgb Hct MCV RDW Plt Count Lymph % (Auto) [place] % (Auto) [place] # Seg Neutrophils % Seg Neuts % (Manual) Lymphocytes % (Manual) Monocytes % (Manual) Basophils % (Manual) Nucleated RBC % Seg Neutrophils # Seg Neutrophils # Man Lymphocytes # (Manual) Monocytes # (Manual) Eosinophils # (Manual) Basophils # (Manual) PT INR APTT Heparin Anti-Xa Level POC ABG pH POC ABG pCO2 POC ABG pO2 Sodium Potassium Chloride Carbon Dioxide BUN Creatinine Glucose POC Glucose 148 H 132 H 137 H Calcium Phosphorus Magnesium AST Alkaline Phosphatase C-Reactive Protein Total Protein Albumin Lipase Vitamin B12 TSH Urine WBC (Auto) Urine Chloride Urine Total Protein Vancomycin Trough Crossmatch 10/15/16 10/15/16 10/15/16 00:49 01:53 03:06 WBC RBC Hgb Hct MCV RDW Plt Count Lymph % (Auto) [place] % (Auto) [place] # Seg Neutrophils % Seg Neuts % (Manual) Lymphocytes % (Manual) Monocytes % (Manual) Basophils % (Manual) Nucleated RBC % Seg Neutrophils # Seg Neutrophils # Man Lymphocytes # (Manual) Monocytes # (Manual) Eosinophils # (Manual) Basophils # (Manual) PT INR APTT Heparin Anti-Xa Level POC ABG pH POC ABG pCO2 POC ABG pO2 Sodium Potassium Chloride Carbon Dioxide BUN Creatinine Glucose POC Glucose 132 H 134 H 134 H Calcium Phosphorus Magnesium AST Alkaline Phosphatase C-Reactive Protein Total Protein Albumin Lipase Vitamin B12 TSH Urine WBC (Auto) Urine Chloride Urine Total Protein Vancomycin Trough Crossmatch 10/15/16 10/15/16 10/15/16 04:40 04:46 06:21 WBC RBC Hgb Hct MCV RDW Plt Count Lymph % (Auto) [place] % (Auto) [place] # Seg Neutrophils % Seg Neuts % (Manual) Lymphocytes % (Manual) Monocytes % (Manual) Basophils % (Manual) Nucleated RBC % Seg Neutrophils # Seg Neutrophils # Man Lymphocytes # (Manual) Monocytes # (Manual) Eosinophils # (Manual) Basophils # (Manual) PT INR APTT Heparin Anti-Xa Level POC ABG pH POC ABG pCO2 30.7 L POC ABG pO2 108 H Sodium Potassium Chloride 109.0 H Carbon Dioxide 17 L BUN 27 H Creatinine Glucose 124 H POC Glucose 160 H Calcium 7.5 L Phosphorus Magnesium AST 79 H Alkaline Phosphatase C-Reactive Protein Total Protein 5.5 L Albumin 3.0 L Lipase Vitamin B12 TSH Urine WBC (Auto) Urine Chloride Urine Total Protein Vancomycin Trough Crossmatch 10/15/16 10/15/16 10/15/16 07:12 08:01 09:03 WBC RBC Hgb Hct MCV RDW Plt Count Lymph % (Auto) [place] % (Auto) [place] # Seg Neutrophils % Seg Neuts % (Manual) Lymphocytes % (Manual) Monocytes % (Manual) Basophils % (Manual) Nucleated RBC % Seg Neutrophils # Seg Neutrophils # Man Lymphocytes # (Manual) Monocytes # (Manual) Eosinophils # (Manual) Basophils # (Manual) PT INR APTT Heparin Anti-Xa Level POC ABG pH POC ABG pCO2 POC ABG pO2 Sodium Potassium Chloride Carbon Dioxide BUN Creatinine Glucose POC Glucose 179 H 187 H 165 H Calcium Phosphorus Magnesium AST Alkaline Phosphatase C-Reactive Protein Total Protein Albumin Lipase Vitamin B12 TSH Urine WBC (Auto) Urine Chloride Urine Total Protein Vancomycin Trough Crossmatch 10/15/16 10/15/16 10/15/16 10:06 10:06 10:07 WBC 12.1 H RBC 3.01 L Hgb 9.7 L Hct 29.6 L MCV 98 H RDW Plt Count 129 L Lymph % (Auto) [place] % (Auto) [place] # Seg Neutrophils % Seg Neuts % (Manual) Lymphocytes % (Manual) Monocytes % (Manual) Basophils % (Manual) Nucleated RBC % Seg Neutrophils # Seg Neutrophils # Man Lymphocytes # (Manual) Monocytes # (Manual) Eosinophils # (Manual) Basophils # (Manual) PT INR APTT Heparin Anti-Xa Level POC ABG pH POC ABG pCO2 POC ABG pO2 Sodium Potassium 3.2 L D Chloride 109.6 H Carbon Dioxide 18 L BUN 22 H Creatinine Glucose 127 H POC Glucose 147 H Calcium 7.0 L Phosphorus Magnesium AST Alkaline Phosphatase C-Reactive Protein Total Protein Albumin Lipase Vitamin B12 TSH Urine WBC (Auto) Urine Chloride Urine Total Protein Vancomycin Trough Crossmatch 10/15/16 10/15/16 10/15/16 11:05 11:06 11:57 WBC RBC Hgb Hct MCV RDW Plt Count Lymph % (Auto) [place] % (Auto) [place] # Seg Neutrophils % Seg Neuts % (Manual) Lymphocytes % (Manual) Monocytes % (Manual) Basophils % (Manual) Nucleated RBC % Seg Neutrophils # Seg Neutrophils # Man Lymphocytes # (Manual) Monocytes # (Manual) Eosinophils # (Manual) Basophils # (Manual) PT INR APTT Heparin Anti-Xa Level POC ABG pH 7.305 L POC ABG pCO2 POC ABG pO2 Sodium Potassium Chloride Carbon Dioxide BUN Creatinine Glucose POC Glucose 145 H Calcium Phosphorus Magnesium AST Alkaline Phosphatase C-Reactive Protein Total Protein Albumin Lipase Vitamin B12 TSH Urine WBC (Auto) 7.0 H Urine Chloride Urine Total Protein Vancomycin Trough Crossmatch 10/15/16 10/15/16 10/15/16 12:04 13:59 15:24 WBC RBC Hgb Hct MCV RDW Plt Count Lymph % (Auto) [place] % (Auto) [place] # Seg Neutrophils % Seg Neuts % (Manual) Lymphocytes % (Manual) Monocytes % (Manual) Basophils % (Manual) Nucleated RBC % Seg Neutrophils # Seg Neutrophils # Man Lymphocytes # (Manual) Monocytes # (Manual) Eosinophils # (Manual) Basophils # (Manual) PT INR APTT Heparin Anti-Xa Level POC ABG pH POC ABG pCO2 POC ABG pO2 Sodium Potassium Chloride Carbon Dioxide BUN Creatinine Glucose POC Glucose 123 H 147 H 153 H Calcium Phosphorus Magnesium AST Alkaline Phosphatase C-Reactive Protein Total Protein Albumin Lipase Vitamin B12 TSH Urine WBC (Auto) Urine Chloride Urine Total Protein Vancomycin Trough Crossmatch 10/15/16 10/15/16 10/15/16 16:30 17:34 18:30 WBC RBC Hgb Hct MCV RDW Plt Count Lymph % (Auto) [place] % (Auto) [place] # Seg Neutrophils % Seg Neuts % (Manual) Lymphocytes % (Manual) Monocytes % (Manual) Basophils % (Manual) Nucleated RBC % Seg Neutrophils # Seg Neutrophils # Man Lymphocytes # (Manual) Monocytes # (Manual) Eosinophils # (Manual) Basophils # (Manual) PT INR APTT Heparin Anti-Xa Level POC ABG pH POC ABG pCO2 POC ABG pO2 Sodium Potassium Chloride Carbon Dioxide BUN Creatinine Glucose POC Glucose 223 H 236 H 164 H Calcium Phosphorus Magnesium AST Alkaline Phosphatase C-Reactive Protein Total Protein Albumin Lipase Vitamin B12 TSH Urine WBC (Auto) Urine Chloride Urine Total Protein Vancomycin Trough Crossmatch 10/15/16 10/15/16 10/15/16 19:14 20:31 21:23 WBC RBC Hgb Hct MCV RDW Plt Count Lymph % (Auto) [place] % (Auto) [place] # Seg Neutrophils % Seg Neuts % (Manual) Lymphocytes % (Manual) Monocytes % (Manual) Basophils % (Manual) Nucleated RBC % Seg Neutrophils # Seg Neutrophils # Man Lymphocytes # (Manual) Monocytes # (Manual) Eosinophils # (Manual) Basophils # (Manual) PT INR APTT Heparin Anti-Xa Level POC ABG pH POC ABG pCO2 POC ABG pO2 Sodium Potassium Chloride Carbon Dioxide BUN Creatinine Glucose POC Glucose 138 H 158 H 158 H Calcium Phosphorus Magnesium AST Alkaline Phosphatase C-Reactive Protein Total Protein Albumin Lipase Vitamin B12 TSH Urine WBC (Auto) Urine Chloride Urine Total Protein Vancomycin Trough Crossmatch 10/15/16 10/15/16 10/16/16 22:04 22:57 00:11 WBC RBC Hgb Hct MCV RDW Plt Count Lymph % (Auto) [place] % (Auto) [place] # Seg Neutrophils % Seg Neuts % (Manual) Lymphocytes % (Manual) Monocytes % (Manual) Basophils % (Manual) Nucleated RBC % Seg Neutrophils # Seg Neutrophils # Man Lymphocytes # (Manual) Monocytes # (Manual) Eosinophils # (Manual) Basophils # (Manual) PT INR APTT Heparin Anti-Xa Level POC ABG pH POC ABG pCO2 POC ABG pO2 Sodium Potassium Chloride Carbon Dioxide BUN Creatinine Glucose POC Glucose 168 H 213 H 166 H Calcium Phosphorus Magnesium AST Alkaline Phosphatase C-Reactive Protein Total Protein Albumin Lipase Vitamin B12 TSH Urine WBC (Auto) Urine Chloride Urine Total Protein Vancomycin Trough Crossmatch 10/16/16 10/16/16 10/16/16 01:16 02:32 03:38 WBC RBC Hgb Hct MCV RDW Plt Count Lymph % (Auto) [place] % (Auto) [place] # Seg Neutrophils % Seg Neuts % (Manual) Lymphocytes % (Manual) Monocytes % (Manual) Basophils % (Manual) Nucleated RBC % Seg Neutrophils # Seg Neutrophils # Man Lymphocytes # (Manual) Monocytes # (Manual) Eosinophils # (Manual) Basophils # (Manual) PT INR APTT Heparin Anti-Xa Level POC ABG pH POC ABG pCO2 POC ABG pO2 Sodium Potassium Chloride Carbon Dioxide BUN Creatinine Glucose POC Glucose 171 H 164 H 147 H Calcium Phosphorus Magnesium AST Alkaline Phosphatase C-Reactive Protein Total Protein Albumin Lipase Vitamin B12 TSH Urine WBC (Auto) Urine Chloride Urine Total Protein Vancomycin Trough Crossmatch 10/16/16 10/16/16 10/16/16 04:14 04:14 04:49 WBC RBC Hgb Hct MCV RDW Plt Count Lymph % (Auto) [place] % (Auto) [place] # Seg Neutrophils % Seg Neuts % (Manual) Lymphocytes % (Manual) Monocytes % (Manual) Basophils % (Manual) Nucleated RBC % Seg Neutrophils # Seg Neutrophils # Man Lymphocytes # (Manual) Monocytes # (Manual) Eosinophils # (Manual) Basophils # (Manual) PT INR APTT Heparin Anti-Xa Level POC ABG pH POC ABG pCO2 POC ABG pO2 Sodium 147 H Potassium Chloride 110.9 H Carbon Dioxide 19 L BUN Creatinine Glucose 139 H POC Glucose 144 H Calcium 7.3 L Phosphorus 2.3 L Magnesium AST Alkaline Phosphatase C-Reactive Protein Total Protein Albumin Lipase 143 H Vitamin B12 TSH Urine WBC (Auto) Urine Chloride Urine Total Protein Vancomycin Trough Crossmatch 10/16/16 10/16/16 10/16/16 05:03 05:41 05:58 WBC 16.5 H RBC 3.36 L Hgb Hct MCV 98 H RDW 13.1 L Plt Count Lymph % (Auto) 8.5 L [place] % (Auto) 7.6 H [place] # 1.3 H Seg Neutrophils % 83.3 H Seg Neuts % (Manual) Lymphocytes % (Manual) Monocytes % (Manual) Basophils % (Manual) Nucleated RBC % Seg Neutrophils # 13.8 H Seg Neutrophils # Man Lymphocytes # (Manual) Monocytes # (Manual) Eosinophils # (Manual) Basophils # (Manual) PT INR APTT Heparin Anti-Xa Level POC ABG pH POC ABG pCO2 30.7 L POC ABG pO2 128 H Sodium Potassium Chloride Carbon Dioxide BUN Creatinine Glucose POC Glucose 131 H Calcium Phosphorus Magnesium AST Alkaline Phosphatase C-Reactive Protein Total Protein Albumin Lipase Vitamin B12 TSH Urine WBC (Auto) Urine Chloride Urine Total Protein Vancomycin Trough Crossmatch 10/16/16 10/16/16 10/16/16 06:32 09:27 09:35 WBC RBC Hgb Hct MCV RDW Plt Count Lymph % (Auto) [place] % (Auto) [place] # Seg Neutrophils % Seg Neuts % (Manual) Lymphocytes % (Manual) Monocytes % (Manual) Basophils % (Manual) Nucleated RBC % Seg Neutrophils # Seg Neutrophils # Man Lymphocytes # (Manual) Monocytes # (Manual) Eosinophils # (Manual) Basophils # (Manual) PT INR APTT Heparin Anti-Xa Level POC ABG pH POC ABG pCO2 32.8 L POC ABG pO2 137 H Sodium Potassium Chloride Carbon Dioxide BUN Creatinine Glucose POC Glucose 121 H 150 H Calcium Phosphorus Magnesium AST Alkaline Phosphatase C-Reactive Protein Total Protein Albumin Lipase Vitamin B12 TSH Urine WBC (Auto) Urine Chloride Urine Total Protein Vancomycin Trough Crossmatch 10/16/16 10/16/16 10/16/16 10:47 13:27 14:24 WBC RBC Hgb Hct MCV RDW Plt Count Lymph % (Auto) [place] % (Auto) [place] # Seg Neutrophils % Seg Neuts % (Manual) Lymphocytes % (Manual) Monocytes % (Manual) Basophils % (Manual) Nucleated RBC % Seg Neutrophils # Seg Neutrophils # Man Lymphocytes # (Manual) Monocytes # (Manual) Eosinophils # (Manual) Basophils # (Manual) PT INR APTT Heparin Anti-Xa Level POC ABG pH POC ABG pCO2 POC ABG pO2 Sodium Potassium Chloride Carbon Dioxide BUN Creatinine Glucose POC Glucose 184 H 171 H 174 H Calcium Phosphorus Magnesium AST Alkaline Phosphatase C-Reactive Protein Total Protein Albumin Lipase Vitamin B12 TSH Urine WBC (Auto) Urine Chloride Urine Total Protein Vancomycin Trough Crossmatch 10/16/16 10/16/16 10/16/16 15:48 16:26 18:17 WBC RBC Hgb Hct MCV RDW Plt Count Lymph % (Auto) [place] % (Auto) [place] # Seg Neutrophils % Seg Neuts % (Manual) Lymphocytes % (Manual) Monocytes % (Manual) Basophils % (Manual) Nucleated RBC % Seg Neutrophils # Seg Neutrophils # Man Lymphocytes # (Manual) Monocytes # (Manual) Eosinophils # (Manual) Basophils # (Manual) PT INR APTT Heparin Anti-Xa Level POC ABG pH POC ABG pCO2 POC ABG pO2 Sodium Potassium Chloride Carbon Dioxide BUN Creatinine Glucose POC Glucose 205 H 204 H 234 H Calcium Phosphorus Magnesium AST Alkaline Phosphatase C-Reactive Protein Total Protein Albumin Lipase Vitamin B12 TSH Urine WBC (Auto) Urine Chloride Urine Total Protein Vancomycin Trough Crossmatch 10/16/16 10/16/16 10/16/16 19:40 20:33 21:36 WBC RBC Hgb Hct MCV RDW Plt Count Lymph % (Auto) [place] % (Auto) [place] # Seg Neutrophils % Seg Neuts % (Manual) Lymphocytes % (Manual) Monocytes % (Manual) Basophils % (Manual) Nucleated RBC % Seg Neutrophils # Seg Neutrophils # Man Lymphocytes # (Manual) Monocytes # (Manual) Eosinophils # (Manual) Basophils # (Manual) PT INR APTT Heparin Anti-Xa Level POC ABG pH POC ABG pCO2 POC ABG pO2 Sodium Potassium Chloride Carbon Dioxide BUN Creatinine Glucose POC Glucose 167 H 153 H 158 H Calcium Phosphorus Magnesium AST Alkaline Phosphatase C-Reactive Protein Total Protein Albumin Lipase Vitamin B12 TSH Urine WBC (Auto) Urine Chloride Urine Total Protein Vancomycin Trough Crossmatch 10/16/16 10/16/16 10/17/16 22:54 23:48 00:47 WBC RBC Hgb Hct MCV RDW Plt Count Lymph % (Auto) [place] % (Auto) [place] # Seg Neutrophils % Seg Neuts % (Manual) Lymphocytes % (Manual) Monocytes % (Manual) Basophils % (Manual) Nucleated RBC % Seg Neutrophils # Seg Neutrophils # Man Lymphocytes # (Manual) Monocytes # (Manual) Eosinophils # (Manual) Basophils # (Manual) PT INR APTT Heparin Anti-Xa Level POC ABG pH POC ABG pCO2 POC ABG pO2 Sodium Potassium Chloride Carbon Dioxide BUN Creatinine Glucose POC Glucose 180 H 207 H 196 H Calcium Phosphorus Magnesium AST Alkaline Phosphatase C-Reactive Protein Total Protein Albumin Lipase Vitamin B12 TSH Urine WBC (Auto) Urine Chloride Urine Total Protein Vancomycin Trough Crossmatch 10/17/16 10/17/16 10/17/16 01:57 02:49 03:50 WBC RBC Hgb Hct MCV RDW Plt Count Lymph % (Auto) [place] % (Auto) [place] # Seg Neutrophils % Seg Neuts % (Manual) Lymphocytes % (Manual) Monocytes % (Manual) Basophils % (Manual) Nucleated RBC % Seg Neutrophils # Seg Neutrophils # Man Lymphocytes # (Manual) Monocytes # (Manual) Eosinophils # (Manual) Basophils # (Manual) PT INR APTT Heparin Anti-Xa Level POC ABG pH POC ABG pCO2 POC ABG pO2 Sodium Potassium Chloride Carbon Dioxide BUN Creatinine Glucose POC Glucose 180 H 151 H 106 H Calcium Phosphorus Magnesium AST Alkaline Phosphatase C-Reactive Protein Total Protein Albumin Lipase Vitamin B12 TSH Urine WBC (Auto) Urine Chloride Urine Total Protein Vancomycin Trough Crossmatch 10/17/16 10/17/16 10/17/16 04:59 06:03 06:35 WBC RBC Hgb Hct MCV RDW Plt Count Lymph % (Auto) [place] % (Auto) [place] # Seg Neutrophils % Seg Neuts % (Manual) Lymphocytes % (Manual) Monocytes % (Manual) Basophils % (Manual) Nucleated RBC % Seg Neutrophils # Seg Neutrophils # Man Lymphocytes # (Manual) Monocytes # (Manual) Eosinophils # (Manual) Basophils # (Manual) PT INR APTT Heparin Anti-Xa Level POC ABG pH 7.453 H POC ABG pCO2 30.1 L POC ABG pO2 111 H Sodium Potassium Chloride Carbon Dioxide BUN Creatinine Glucose POC Glucose 145 H 157 H Calcium Phosphorus Magnesium AST Alkaline Phosphatase C-Reactive Protein Total Protein Albumin Lipase Vitamin B12 TSH Urine WBC (Auto) Urine Chloride Urine Total Protein Vancomycin Trough Crossmatch 10/17/16 10/17/16 10/17/16 07:08 07:11 08:01 WBC RBC Hgb Hct MCV RDW Plt Count Lymph % (Auto) [place] % (Auto) [place] # Seg Neutrophils % Seg Neuts % (Manual) Lymphocytes % (Manual) Monocytes % (Manual) Basophils % (Manual) Nucleated RBC % Seg Neutrophils # Seg Neutrophils # Man Lymphocytes # (Manual) Monocytes # (Manual) Eosinophils # (Manual) Basophils # (Manual) PT INR APTT Heparin Anti-Xa Level POC ABG pH POC ABG pCO2 POC ABG pO2 Sodium 147 H Potassium Chloride 113.8 H Carbon Dioxide 19 L BUN Creatinine Glucose 136 H POC Glucose 136 H 152 H Calcium 7.7 L Phosphorus Magnesium AST Alkaline Phosphatase C-Reactive Protein Total Protein Albumin Lipase Vitamin B12 TSH Urine WBC (Auto) Urine Chloride Urine Total Protein Vancomycin Trough Crossmatch 10/17/16 10/17/16 10/17/16 08:23 09:17 09:53 WBC 18.1 H RBC 3.01 L Hgb 9.7 L Hct 29.4 L MCV 98 H RDW Plt Count 116 L Lymph % (Auto) [place] % (Auto) [place] # Seg Neutrophils % Seg Neuts % (Manual) 77.0 H Lymphocytes % (Manual) 4.0 L Monocytes % (Manual) 12.0 H Basophils % (Manual) Nucleated RBC % Seg Neutrophils # Seg Neutrophils # Man 13.9 H Lymphocytes # (Manual) 0.7 L Monocytes # (Manual) 2.2 H Eosinophils # (Manual) Basophils # (Manual) PT INR APTT Heparin Anti-Xa Level POC ABG pH POC ABG pCO2 POC ABG pO2 Sodium Potassium Chloride Carbon Dioxide BUN Creatinine Glucose POC Glucose 148 H 137 H Calcium Phosphorus Magnesium AST Alkaline Phosphatase C-Reactive Protein Total Protein Albumin Lipase Vitamin B12 TSH Urine WBC (Auto) Urine Chloride Urine Total Protein Vancomycin Trough Crossmatch 10/17/16 10/17/16 10/17/16 11:43 16:07 17:42 WBC RBC Hgb Hct MCV RDW Plt Count Lymph % (Auto) [place] % (Auto) [place] # Seg Neutrophils % Seg Neuts % (Manual) Lymphocytes % (Manual) Monocytes % (Manual) Basophils % (Manual) Nucleated RBC % Seg Neutrophils # Seg Neutrophils # Man Lymphocytes # (Manual) Monocytes # (Manual) Eosinophils # (Manual) Basophils # (Manual) PT 16.4 H INR 1.33 H APTT 38.8 H Heparin Anti-Xa Level POC ABG pH POC ABG pCO2 POC ABG pO2 Sodium Potassium Chloride Carbon Dioxide BUN Creatinine Glucose POC Glucose 179 H 153 H Calcium Phosphorus Magnesium AST Alkaline Phosphatase C-Reactive Protein Total Protein Albumin Lipase Vitamin B12 TSH Urine WBC (Auto) Urine Chloride Urine Total Protein Vancomycin Trough Crossmatch 10/17/16 10/18/16 10/18/16 22:54 04:37 05:39 WBC RBC Hgb Hct MCV RDW Plt Count Lymph % (Auto) [place] % (Auto) [place] # Seg Neutrophils % Seg Neuts % (Manual) Lymphocytes % (Manual) Monocytes % (Manual) Basophils % (Manual) Nucleated RBC % Seg Neutrophils # Seg Neutrophils # Man Lymphocytes # (Manual) Monocytes # (Manual) Eosinophils # (Manual) Basophils # (Manual) PT INR APTT Heparin Anti-Xa Level 0.27 L POC ABG pH 7.454 H POC ABG pCO2 30.8 L POC ABG pO2 115 H Sodium Potassium Chloride Carbon Dioxide BUN Creatinine Glucose POC Glucose 69 L Calcium Phosphorus Magnesium AST Alkaline Phosphatase C-Reactive Protein Total Protein Albumin Lipase Vitamin B12 TSH Urine WBC (Auto) Urine Chloride Urine Total Protein Vancomycin Trough Crossmatch 10/18/16 10/18/16 10/18/16 06:46 06:46 06:46 WBC 20.5 H RBC 2.62 L Hgb 8.4 L Hct 26.0 L MCV 100 H RDW Plt Count Lymph % (Auto) [place] % (Auto) [place] # Seg Neutrophils % Seg Neuts % (Manual) 75.0 H Lymphocytes % (Manual) 9.0 L Monocytes % (Manual) 14.0 H Basophils % (Manual) Nucleated RBC % Seg Neutrophils # Seg Neutrophils # Man 15.4 H Lymphocytes # (Manual) Monocytes # (Manual) 2.9 H Eosinophils # (Manual) Basophils # (Manual) PT INR APTT Heparin Anti-Xa Level POC ABG pH POC ABG pCO2 POC ABG pO2 Sodium Potassium Chloride 110.6 H Carbon Dioxide BUN Creatinine 1.3 H Glucose 153 H POC Glucose Calcium 8.0 L Phosphorus Magnesium 1.6 L AST Alkaline Phosphatase C-Reactive Protein Total Protein Albumin Lipase Vitamin B12 TSH Urine WBC (Auto) Urine Chloride Urine Total Protein Vancomycin Trough Crossmatch 10/18/16 10/18/16 10/18/16 07:30 11:37 17:51 WBC RBC Hgb Hct MCV RDW Plt Count Lymph % (Auto) [place] % (Auto) [place] # Seg Neutrophils % Seg Neuts % (Manual) Lymphocytes % (Manual) Monocytes % (Manual) Basophils % (Manual) Nucleated RBC % Seg Neutrophils # Seg Neutrophils # Man Lymphocytes # (Manual) Monocytes # (Manual) Eosinophils # (Manual) Basophils # (Manual) PT INR APTT Heparin Anti-Xa Level POC ABG pH POC ABG pCO2 POC ABG pO2 Sodium Potassium Chloride Carbon Dioxide BUN Creatinine Glucose POC Glucose 162 H 156 H 164 H Calcium Phosphorus Magnesium AST Alkaline Phosphatase C-Reactive Protein Total Protein Albumin Lipase Vitamin B12 TSH Urine WBC (Auto) Urine Chloride Urine Total Protein Vancomycin Trough Crossmatch 10/18/16 10/19/16 10/19/16 23:44 03:59 05:13 WBC 18.2 H RBC 2.76 L Hgb 9.0 L Hct 27.7 L MCV 100 H RDW Plt Count Lymph % (Auto) [place] % (Auto) [place] # Seg Neutrophils % Seg Neuts % (Manual) 76.0 H Lymphocytes % (Manual) 10.0 L Monocytes % (Manual) Basophils % (Manual) Nucleated RBC % Seg Neutrophils # Seg Neutrophils # Man 13.8 H Lymphocytes # (Manual) Monocytes # (Manual) Eosinophils # (Manual) Basophils # (Manual) PT INR APTT Heparin Anti-Xa Level POC ABG pH POC ABG pCO2 32.2 L POC ABG pO2 128 H Sodium Potassium Chloride Carbon Dioxide BUN Creatinine Glucose POC Glucose 278 H Calcium Phosphorus Magnesium AST Alkaline Phosphatase C-Reactive Protein Total Protein Albumin Lipase Vitamin B12 TSH Urine WBC (Auto) Urine Chloride Urine Total Protein Vancomycin Trough Crossmatch 10/19/16 10/19/16 10/19/16 06:01 06:30 12:20 WBC RBC Hgb Hct MCV RDW Plt Count Lymph % (Auto) [place] % (Auto) [place] # Seg Neutrophils % Seg Neuts % (Manual) Lymphocytes % (Manual) Monocytes % (Manual) Basophils % (Manual) Nucleated RBC % Seg Neutrophils # Seg Neutrophils # Man Lymphocytes # (Manual) Monocytes # (Manual) Eosinophils # (Manual) Basophils # (Manual) PT INR APTT Heparin Anti-Xa Level POC ABG pH POC ABG pCO2 POC ABG pO2 Sodium Potassium Chloride Carbon Dioxide 18 L BUN Creatinine 1.3 H Glucose 262 H POC Glucose 261 H 349 H Calcium 7.7 L Phosphorus 4.8 H D Magnesium AST Alkaline Phosphatase C-Reactive Protein Total Protein Albumin Lipase Vitamin B12 TSH Urine WBC (Auto) Urine Chloride Urine Total Protein Vancomycin Trough Crossmatch 10/19/16 10/20/16 10/20/16 16:48 00:17 05:20 WBC 22.5 H RBC 2.80 L Hgb 8.9 L Hct 28.3 L MCV 101 H RDW Plt Count Lymph % (Auto) [place] % (Auto) [place] # Seg Neutrophils % Seg Neuts % (Manual) Lymphocytes % (Manual) 10.0 L Monocytes % (Manual) Basophils % (Manual) Nucleated RBC % Seg Neutrophils # Seg Neutrophils # Man 13.3 H Lymphocytes # (Manual) Monocytes # (Manual) 1.1 H Eosinophils # (Manual) 0.7 H Basophils # (Manual) PT INR APTT Heparin Anti-Xa Level POC ABG pH POC ABG pCO2 POC ABG pO2 Sodium Potassium Chloride Carbon Dioxide BUN Creatinine Glucose POC Glucose 248 H 346 H Calcium Phosphorus Magnesium AST Alkaline Phosphatase C-Reactive Protein Total Protein Albumin Lipase Vitamin B12 TSH Urine WBC (Auto) Urine Chloride Urine Total Protein Vancomycin Trough Crossmatch 10/20/16 10/20/16 10/20/16 05:20 05:20 06:05 WBC RBC Hgb Hct MCV RDW Plt Count Lymph % (Auto) [place] % (Auto) [place] # Seg Neutrophils % Seg Neuts % (Manual) Lymphocytes % (Manual) Monocytes % (Manual) Basophils % (Manual) Nucleated RBC % Seg Neutrophils # Seg Neutrophils # Man Lymphocytes # (Manual) Monocytes # (Manual) Eosinophils # (Manual) Basophils # (Manual) PT INR APTT Heparin Anti-Xa Level 0.20 L POC ABG pH POC ABG pCO2 POC ABG pO2 Sodium Potassium Chloride Carbon Dioxide BUN 20 H Creatinine Glucose 374 H POC Glucose 337 H Calcium 8.3 L Phosphorus Magnesium AST Alkaline Phosphatase C-Reactive Protein Total Protein Albumin Lipase Vitamin B12 TSH Urine WBC (Auto) Urine Chloride Urine Total Protein Vancomycin Trough Crossmatch 10/20/16 10/20/16 10/20/16 11:49 13:59 17:56 WBC RBC Hgb Hct MCV RDW Plt Count Lymph % (Auto) [place] % (Auto) [place] # Seg Neutrophils % Seg Neuts % (Manual) Lymphocytes % (Manual) Monocytes % (Manual) Basophils % (Manual) Nucleated RBC % Seg Neutrophils # Seg Neutrophils # Man Lymphocytes # (Manual) Monocytes # (Manual) Eosinophils # (Manual) Basophils # (Manual) PT INR APTT Heparin Anti-Xa Level 2.00 H POC ABG pH POC ABG pCO2 POC ABG pO2 Sodium Potassium Chloride Carbon Dioxide BUN Creatinine Glucose POC Glucose 305 H 362 H Calcium Phosphorus Magnesium AST Alkaline Phosphatase C-Reactive Protein Total Protein Albumin Lipase Vitamin B12 TSH Urine WBC (Auto) Urine Chloride Urine Total Protein Vancomycin Trough Crossmatch 10/20/16 10/21/16 10/21/16 23:52 05:00 05:49 WBC 22.9 H RBC 2.49 L Hgb 7.7 L Hct 25.6 L MCV 103 H RDW Plt Count Lymph % (Auto) [place] % (Auto) [place] # Seg Neutrophils % Seg Neuts % (Manual) 94.0 H Lymphocytes % (Manual) 1.0 L Monocytes % (Manual) Basophils % (Manual) Nucleated RBC % Seg Neutrophils # Seg Neutrophils # Man 21.5 H Lymphocytes # (Manual) 0.2 L Monocytes # (Manual) 1.1 H Eosinophils # (Manual) Basophils # (Manual) PT INR APTT Heparin Anti-Xa Level POC ABG pH POC ABG pCO2 POC ABG pO2 Sodium Potassium Chloride Carbon Dioxide BUN Creatinine Glucose POC Glucose 252 H 180 H Calcium Phosphorus Magnesium AST Alkaline Phosphatase C-Reactive Protein Total Protein Albumin Lipase Vitamin B12 TSH Urine WBC (Auto) Urine Chloride Urine Total Protein Vancomycin Trough Crossmatch 10/21/16 10/21/16 10/21/16 11:47 11:49 14:10 WBC RBC Hgb Hct MCV RDW Plt Count Lymph % (Auto) [place] % (Auto) [place] # Seg Neutrophils % Seg Neuts % (Manual) Lymphocytes % (Manual) Monocytes % (Manual) Basophils % (Manual) Nucleated RBC % Seg Neutrophils # Seg Neutrophils # Man Lymphocytes # (Manual) Monocytes # (Manual) Eosinophils # (Manual) Basophils # (Manual) PT INR APTT Heparin Anti-Xa Level POC ABG pH POC ABG pCO2 POC ABG pO2 Sodium Potassium Chloride Carbon Dioxide BUN Creatinine Glucose POC Glucose 50 L 56 L 140 H Calcium Phosphorus Magnesium AST Alkaline Phosphatase C-Reactive Protein Total Protein Albumin Lipase Vitamin B12 TSH Urine WBC (Auto) Urine Chloride Urine Total Protein Vancomycin Trough Crossmatch 10/21/16 10/21/16 10/22/16 18:24 Unknown 00:07 WBC RBC Hgb Hct MCV RDW Plt Count Lymph % (Auto) [place] % (Auto) [place] # Seg Neutrophils % Seg Neuts % (Manual) Lymphocytes % (Manual) Monocytes % (Manual) Basophils % (Manual) Nucleated RBC % Seg Neutrophils # Seg Neutrophils # Man Lymphocytes # (Manual) Monocytes # (Manual) Eosinophils # (Manual) Basophils # (Manual) PT INR APTT Heparin Anti-Xa Level POC ABG pH POC ABG pCO2 POC ABG pO2 Sodium 150 H Potassium 3.1 L Chloride 112.4 H Carbon Dioxide BUN 25 H Creatinine 1.4 H Glucose POC Glucose 175 H 218 H Calcium 8.0 L Phosphorus Magnesium AST Alkaline Phosphatase C-Reactive Protein Total Protein Albumin Lipase Vitamin B12 TSH Urine WBC (Auto) Urine Chloride Urine Total Protein Vancomycin Trough Crossmatch 10/22/16 10/22/16 10/22/16 04:20 04:20 10:25 WBC 20.8 H RBC 2.37 L Hgb 7.5 L Hct 23.9 L MCV 101 H RDW Plt Count Lymph % (Auto) [place] % (Auto) [place] # Seg Neutrophils % Seg Neuts % (Manual) 89.0 H Lymphocytes % (Manual) 7.0 L Monocytes % (Manual) Basophils % (Manual) Nucleated RBC % Seg Neutrophils # Seg Neutrophils # Man 18.5 H Lymphocytes # (Manual) Monocytes # (Manual) Eosinophils # (Manual) Basophils # (Manual) 0.2 H PT INR APTT Heparin Anti-Xa Level POC ABG pH POC ABG pCO2 POC ABG pO2 Sodium 148 H Potassium 2.9 L* Chloride 109.4 H Carbon Dioxide BUN 26 H Creatinine Glucose 140 H POC Glucose Calcium 7.5 L Phosphorus Magnesium AST Alkaline Phosphatase C-Reactive Protein Total Protein Albumin Lipase Vitamin B12 976.8 H TSH Urine WBC (Auto) Urine Chloride Urine Total Protein Vancomycin Trough Crossmatch 10/22/16 10/22/16 10/22/16 10:25 14:50 18:16 WBC RBC Hgb Hct MCV RDW Plt Count Lymph % (Auto) [place] % (Auto) [place] # Seg Neutrophils % Seg Neuts % (Manual) Lymphocytes % (Manual) Monocytes % (Manual) Basophils % (Manual) Nucleated RBC % Seg Neutrophils # Seg Neutrophils # Man Lymphocytes # (Manual) Monocytes # (Manual) Eosinophils # (Manual) Basophils # (Manual) PT INR APTT Heparin Anti-Xa Level POC ABG pH POC ABG pCO2 POC ABG pO2 Sodium Potassium Chloride Carbon Dioxide BUN Creatinine Glucose POC Glucose 193 H Calcium Phosphorus Magnesium AST Alkaline Phosphatase C-Reactive Protein Total Protein Albumin Lipase Vitamin B12 TSH 0.143 L 0.162 L Urine WBC (Auto) Urine Chloride Urine Total Protein Vancomycin Trough Crossmatch 10/22/16 10/22/16 10/22/16 20:00 20:00 20:00 WBC 24.1 H RBC 2.58 L Hgb 8.2 L Hct 26.4 L MCV 102 H RDW Plt Count Lymph % (Auto) [place] % (Auto) [place] # Seg Neutrophils % Seg Neuts % (Manual) 74.0 H Lymphocytes % (Manual) 7.0 L Monocytes % (Manual) Basophils % (Manual) Nucleated RBC % Seg Neutrophils # Seg Neutrophils # Man 17.8 H Lymphocytes # (Manual) Monocytes # (Manual) Eosinophils # (Manual) Basophils # (Manual) PT INR APTT Heparin Anti-Xa Level 1.92 H POC ABG pH POC ABG pCO2 POC ABG pO2 Sodium Potassium Chloride Carbon Dioxide BUN Creatinine Glucose POC Glucose Calcium Phosphorus Magnesium AST Alkaline Phosphatase C-Reactive Protein Total Protein Albumin Lipase Vitamin B12 TSH Urine WBC (Auto) Urine Chloride Urine Total Protein Vancomycin Trough Crossmatch See Detail 10/23/16 10/23/16 10/23/16 00:21 06:09 12:07 WBC RBC Hgb Hct MCV RDW Plt Count Lymph % (Auto) [place] % (Auto) [place] # Seg Neutrophils % Seg Neuts % (Manual) Lymphocytes % (Manual) Monocytes % (Manual) Basophils % (Manual) Nucleated RBC % Seg Neutrophils # Seg Neutrophils # Man Lymphocytes # (Manual) Monocytes # (Manual) Eosinophils # (Manual) Basophils # (Manual) PT INR APTT Heparin Anti-Xa Level POC ABG pH POC ABG pCO2 POC ABG pO2 Sodium Potassium Chloride Carbon Dioxide BUN Creatinine Glucose POC Glucose 283 H 241 H 340 H Calcium Phosphorus Magnesium AST Alkaline Phosphatase C-Reactive Protein Total Protein Albumin Lipase Vitamin B12 TSH Urine WBC (Auto) Urine Chloride Urine Total Protein Vancomycin Trough Crossmatch 10/23/16 10/23/16 10/23/16 14:01 16:00 17:59 WBC RBC Hgb Hct MCV RDW Plt Count Lymph % (Auto) [place] % (Auto) [place] # Seg Neutrophils % Seg Neuts % (Manual) Lymphocytes % (Manual) Monocytes % (Manual) Basophils % (Manual) Nucleated RBC % Seg Neutrophils # Seg Neutrophils # Man Lymphocytes # (Manual) Monocytes # (Manual) Eosinophils # (Manual) Basophils # (Manual) PT INR APTT Heparin Anti-Xa Level 0.19 L POC ABG pH POC ABG pCO2 32.4 L POC ABG pO2 Sodium Potassium Chloride Carbon Dioxide BUN Creatinine Glucose POC Glucose 245 H Calcium Phosphorus Magnesium AST Alkaline Phosphatase C-Reactive Protein Total Protein Albumin Lipase Vitamin B12 TSH Urine WBC (Auto) Urine Chloride Urine Total Protein Vancomycin Trough Crossmatch 10/23/16 10/23/16 10/23/16 22:55 Unknown Unknown WBC 22.6 H RBC 3.26 L Hgb Hct MCV RDW 17.1 H Plt Count Lymph % (Auto) [place] % (Auto) [place] # Seg Neutrophils % Seg Neuts % (Manual) Lymphocytes % (Manual) 11.0 L Monocytes % (Manual) Basophils % (Manual) Nucleated RBC % Seg Neutrophils # Seg Neutrophils # Man 14.0 H Lymphocytes # (Manual) Monocytes # (Manual) Eosinophils # (Manual) Basophils # (Manual) PT INR APTT Heparin Anti-Xa Level 0.17 L 0.15 L POC ABG pH POC ABG pCO2 POC ABG pO2 Sodium Potassium Chloride Carbon Dioxide BUN Creatinine Glucose POC Glucose Calcium Phosphorus Magnesium AST Alkaline Phosphatase C-Reactive Protein Total Protein Albumin Lipase Vitamin B12 TSH Urine WBC (Auto) Urine Chloride Urine Total Protein Vancomycin Trough Crossmatch 10/23/16 10/24/16 10/24/16 Unknown 00:05 05:30 WBC RBC Hgb Hct MCV RDW Plt Count Lymph % (Auto) [place] % (Auto) [place] # Seg Neutrophils % Seg Neuts % (Manual) Lymphocytes % (Manual) Monocytes % (Manual) Basophils % (Manual) Nucleated RBC % Seg Neutrophils # Seg Neutrophils # Man Lymphocytes # (Manual) Monocytes # (Manual) Eosinophils # (Manual) Basophils # (Manual) PT INR APTT Heparin Anti-Xa Level 0.13 L POC ABG pH POC ABG pCO2 POC ABG pO2 Sodium Potassium Chloride 111.2 H Carbon Dioxide 20 L BUN 25 H Creatinine Glucose 227 H POC Glucose 118 H Calcium 7.1 L Phosphorus Magnesium AST Alkaline Phosphatase C-Reactive Protein Total Protein Albumin Lipase Vitamin B12 TSH Urine WBC (Auto) Urine Chloride Urine Total Protein Vancomycin Trough Crossmatch 10/24/16 10/24/16 10/24/16 11:00 11:00 12:06 WBC 17.6 H RBC 2.92 L Hgb 9.2 L Hct 28.3 L MCV RDW 16.9 H Plt Count Lymph % (Auto) [place] % (Auto) [place] # Seg Neutrophils % Seg Neuts % (Manual) Lymphocytes % (Manual) Monocytes % (Manual) Basophils % (Manual) Nucleated RBC % Seg Neutrophils # Seg Neutrophils # Man Lymphocytes # (Manual) Monocytes # (Manual) Eosinophils # (Manual) Basophils # (Manual) PT INR APTT Heparin Anti-Xa Level 0.27 L POC ABG pH POC ABG pCO2 POC ABG pO2 Sodium Potassium Chloride Carbon Dioxide BUN Creatinine Glucose POC Glucose 166 H Calcium Phosphorus Magnesium AST Alkaline Phosphatase C-Reactive Protein Total Protein Albumin Lipase Vitamin B12 TSH Urine WBC (Auto) Urine Chloride Urine Total Protein Vancomycin Trough Crossmatch 10/24/16 10/25/16 10/25/16 12:27 00:49 03:30 WBC RBC Hgb 8.8 L Hct 28.1 L MCV RDW Plt Count Lymph % (Auto) [place] % (Auto) [place] # Seg Neutrophils % Seg Neuts % (Manual) Lymphocytes % (Manual) Monocytes % (Manual) Basophils % (Manual) Nucleated RBC % Seg Neutrophils # Seg Neutrophils # Man Lymphocytes # (Manual) Monocytes # (Manual) Eosinophils # (Manual) Basophils # (Manual) PT INR APTT Heparin Anti-Xa Level POC ABG pH POC ABG pCO2 33.9 L POC ABG pO2 Sodium Potassium Chloride Carbon Dioxide BUN Creatinine Glucose POC Glucose 121 H Calcium Phosphorus Magnesium AST Alkaline Phosphatase C-Reactive Protein Total Protein Albumin Lipase Vitamin B12 TSH Urine WBC (Auto) Urine Chloride Urine Total Protein Vancomycin Trough Crossmatch 10/25/16 10/25/16 10/25/16 09:49 12:10 19:25 WBC 21.1 H RBC 3.02 L Hgb 9.3 L Hct 28.9 L MCV RDW 16.3 H Plt Count Lymph % (Auto) [place] % (Auto) [place] # Seg Neutrophils % Seg Neuts % (Manual) 81.0 H Lymphocytes % (Manual) 9.0 L Monocytes % (Manual) Basophils % (Manual) Nucleated RBC % Seg Neutrophils # Seg Neutrophils # Man 17.1 H Lymphocytes # (Manual) Monocytes # (Manual) Eosinophils # (Manual) Basophils # (Manual) PT INR APTT Heparin Anti-Xa Level POC ABG pH POC ABG pCO2 POC ABG pO2 Sodium Potassium Chloride Carbon Dioxide BUN Creatinine Glucose POC Glucose 158 H 151 H Calcium Phosphorus Magnesium AST Alkaline Phosphatase C-Reactive Protein Total Protein Albumin Lipase Vitamin B12 TSH Urine WBC (Auto) Urine Chloride Urine Total Protein Vancomycin Trough Crossmatch 10/26/16 10/26/16 10/26/16 00:20 01:09 05:02 WBC 22.2 H RBC 2.89 L Hgb 8.7 L Hct 27.8 L MCV RDW 16.4 H Plt Count Lymph % (Auto) [place] % (Auto) [place] # Seg Neutrophils % Seg Neuts % (Manual) Lymphocytes % (Manual) Monocytes % (Manual) Basophils % (Manual) Nucleated RBC % Seg Neutrophils # Seg Neutrophils # Man Lymphocytes # (Manual) Monocytes # (Manual) Eosinophils # (Manual) Basophils # (Manual) PT INR APTT Heparin Anti-Xa Level POC ABG pH POC ABG pCO2 POC ABG pO2 Sodium Potassium Chloride Carbon Dioxide BUN Creatinine Glucose POC Glucose 44 L 112 H Calcium Phosphorus Magnesium AST Alkaline Phosphatase C-Reactive Protein Total Protein Albumin Lipase Vitamin B12 TSH Urine WBC (Auto) Urine Chloride Urine Total Protein Vancomycin Trough Crossmatch 10/26/16 10/26/16 10/26/16 05:02 12:11 12:14 WBC RBC Hgb Hct MCV RDW Plt Count Lymph % (Auto) [place] % (Auto) [place] # Seg Neutrophils % Seg Neuts % (Manual) Lymphocytes % (Manual) Monocytes % (Manual) Basophils % (Manual) Nucleated RBC % Seg Neutrophils # Seg Neutrophils # Man Lymphocytes # (Manual) Monocytes # (Manual) Eosinophils # (Manual) Basophils # (Manual) PT INR APTT Heparin Anti-Xa Level POC ABG pH POC ABG pCO2 32.0 L POC ABG pO2 33 L Sodium Potassium 3.2 L D Chloride Carbon Dioxide 20 L BUN 24 H Creatinine Glucose 104 H POC Glucose 194 H Calcium 7.7 L Phosphorus Magnesium AST Alkaline Phosphatase C-Reactive Protein Total Protein Albumin Lipase Vitamin B12 TSH Urine WBC (Auto) Urine Chloride Urine Total Protein Vancomycin Trough Crossmatch 10/26/16 10/26/16 10/27/16 15:28 17:23 00:04 WBC RBC Hgb Hct MCV RDW Plt Count Lymph % (Auto) [place] % (Auto) [place] # Seg Neutrophils % Seg Neuts % (Manual) Lymphocytes % (Manual) Monocytes % (Manual) Basophils % (Manual) Nucleated RBC % Seg Neutrophils # Seg Neutrophils # Man Lymphocytes # (Manual) Monocytes # (Manual) Eosinophils # (Manual) Basophils # (Manual) PT INR APTT Heparin Anti-Xa Level POC ABG pH POC ABG pCO2 33.7 L POC ABG pO2 Sodium Potassium Chloride Carbon Dioxide BUN Creatinine Glucose POC Glucose 181 H 230 H Calcium Phosphorus Magnesium AST Alkaline Phosphatase C-Reactive Protein Total Protein Albumin Lipase Vitamin B12 TSH Urine WBC (Auto) Urine Chloride Urine Total Protein Vancomycin Trough Crossmatch 10/27/16 10/27/16 10/27/16 05:15 05:15 05:38 WBC 25.5 H RBC 3.07 L Hgb 9.4 L Hct 30.1 L MCV 98 H RDW 16.4 H Plt Count 527 H Lymph % (Auto) [place] % (Auto) [place] # Seg Neutrophils % Seg Neuts % (Manual) Lymphocytes % (Manual) Monocytes % (Manual) Basophils % (Manual) Nucleated RBC % Seg Neutrophils # Seg Neutrophils # Man Lymphocytes # (Manual) Monocytes # (Manual) Eosinophils # (Manual) Basophils # (Manual) PT INR APTT Heparin Anti-Xa Level POC ABG pH POC ABG pCO2 POC ABG pO2 Sodium Potassium Chloride Carbon Dioxide 19 L BUN 23 H Creatinine Glucose 160 H POC Glucose 168 H Calcium 8.0 L Phosphorus Magnesium AST Alkaline Phosphatase C-Reactive Protein Total Protein Albumin Lipase Vitamin B12 TSH Urine WBC (Auto) Urine Chloride Urine Total Protein Vancomycin Trough Crossmatch 10/27/16 10/27/16 10/27/16 11:59 18:35 23:48 WBC RBC Hgb Hct MCV RDW Plt Count Lymph % (Auto) [place] % (Auto) [place] # Seg Neutrophils % Seg Neuts % (Manual) Lymphocytes % (Manual) Monocytes % (Manual) Basophils % (Manual) Nucleated RBC % Seg Neutrophils # Seg Neutrophils # Man Lymphocytes # (Manual) Monocytes # (Manual) Eosinophils # (Manual) Basophils # (Manual) PT INR APTT Heparin Anti-Xa Level POC ABG pH POC ABG pCO2 POC ABG pO2 Sodium Potassium Chloride Carbon Dioxide BUN Creatinine Glucose POC Glucose 197 H 318 H 316 H Calcium Phosphorus Magnesium AST Alkaline Phosphatase C-Reactive Protein Total Protein Albumin Lipase Vitamin B12 TSH Urine WBC (Auto) Urine Chloride Urine Total Protein Vancomycin Trough Crossmatch 10/28/16 10/28/16 10/28/16 03:13 04:10 04:10 WBC 18.8 H RBC 2.64 L Hgb 8.1 L Hct 26.1 L MCV 99 H RDW 16.2 H Plt Count 544 H Lymph % (Auto) [place] % (Auto) [place] # Seg Neutrophils % Seg Neuts % (Manual) Lymphocytes % (Manual) Monocytes % (Manual) Basophils % (Manual) Nucleated RBC % Seg Neutrophils # Seg Neutrophils # Man Lymphocytes # (Manual) Monocytes # (Manual) Eosinophils # (Manual) Basophils # (Manual) PT INR APTT Heparin Anti-Xa Level POC ABG pH POC ABG pCO2 POC ABG pO2 Sodium Potassium Chloride Carbon Dioxide 21 L BUN 24 H Creatinine Glucose 302 H POC Glucose 304 H Calcium 7.7 L Phosphorus Magnesium AST Alkaline Phosphatase C-Reactive Protein Total Protein Albumin Lipase Vitamin B12 TSH Urine WBC (Auto) Urine Chloride Urine Total Protein Vancomycin Trough Crossmatch 10/28/16 10/28/16 10/28/16 04:10 12:36 18:27 WBC RBC Hgb Hct MCV RDW Plt Count Lymph % (Auto) [place] % (Auto) [place] # Seg Neutrophils % Seg Neuts % (Manual) Lymphocytes % (Manual) Monocytes % (Manual) Basophils % (Manual) Nucleated RBC % Seg Neutrophils # Seg Neutrophils # Man Lymphocytes # (Manual) Monocytes # (Manual) Eosinophils # (Manual) Basophils # (Manual) PT INR APTT Heparin Anti-Xa Level 0.20 L POC ABG pH POC ABG pCO2 POC ABG pO2 Sodium Potassium Chloride Carbon Dioxide BUN Creatinine Glucose POC Glucose 205 H 339 H Calcium Phosphorus Magnesium AST Alkaline Phosphatase C-Reactive Protein Total Protein Albumin Lipase Vitamin B12 TSH Urine WBC (Auto) Urine Chloride Urine Total Protein Vancomycin Trough Crossmatch 10/29/16 10/29/16 10/29/16 01:05 06:19 09:30 WBC 20.3 H RBC 2.80 L Hgb 8.5 L Hct 26.7 L MCV RDW 15.4 H Plt Count 571 H Lymph % (Auto) [place] % (Auto) [place] # Seg Neutrophils % Seg Neuts % (Manual) 75.0 H Lymphocytes % (Manual) 4.0 L Monocytes % (Manual) Basophils % (Manual) Nucleated RBC % Seg Neutrophils # Seg Neutrophils # Man 15.2 H Lymphocytes # (Manual) 0.8 L Monocytes # (Manual) Eosinophils # (Manual) Basophils # (Manual) PT INR APTT Heparin Anti-Xa Level POC ABG pH POC ABG pCO2 POC ABG pO2 Sodium Potassium Chloride Carbon Dioxide BUN Creatinine Glucose POC Glucose 275 H 179 H Calcium Phosphorus Magnesium AST Alkaline Phosphatase C-Reactive Protein Total Protein Albumin Lipase Vitamin B12 TSH Urine WBC (Auto) Urine Chloride Urine Total Protein Vancomycin Trough Crossmatch 10/29/16 10/29/16 10/29/16 11:46 15:18 17:55 WBC RBC Hgb Hct MCV RDW Plt Count Lymph % (Auto) [place] % (Auto) [place] # Seg Neutrophils % Seg Neuts % (Manual) Lymphocytes % (Manual) Monocytes % (Manual) Basophils % (Manual) Nucleated RBC % Seg Neutrophils # Seg Neutrophils # Man Lymphocytes # (Manual) Monocytes # (Manual) Eosinophils # (Manual) Basophils # (Manual) PT INR APTT Heparin Anti-Xa Level 1.15 H POC ABG pH POC ABG pCO2 POC ABG pO2 Sodium Potassium Chloride Carbon Dioxide BUN Creatinine Glucose POC Glucose 122 H 255 H Calcium Phosphorus Magnesium AST Alkaline Phosphatase C-Reactive Protein Total Protein Albumin Lipase Vitamin B12 TSH Urine WBC (Auto) Urine Chloride Urine Total Protein Vancomycin Trough Crossmatch 10/30/16 10/30/16 10/30/16 00:10 05:30 05:30 WBC 19.8 H RBC 2.51 L Hgb 7.7 L Hct 24.1 L MCV RDW 15.5 H Plt Count 534 H Lymph % (Auto) [place] % (Auto) [place] # Seg Neutrophils % Seg Neuts % (Manual) Lymphocytes % (Manual) Monocytes % (Manual) Basophils % (Manual) Nucleated RBC % Seg Neutrophils # Seg Neutrophils # Man Lymphocytes # (Manual) Monocytes # (Manual) Eosinophils # (Manual) Basophils # (Manual) PT INR APTT Heparin Anti-Xa Level POC ABG pH POC ABG pCO2 POC ABG pO2 Sodium Potassium Chloride Carbon Dioxide BUN Creatinine Glucose 211 H POC Glucose 202 H Calcium 7.4 L Phosphorus Magnesium AST Alkaline Phosphatase C-Reactive Protein Total Protein Albumin Lipase Vitamin B12 TSH Urine WBC (Auto) Urine Chloride Urine Total Protein Vancomycin Trough Crossmatch 10/30/16 10/30/16 10/30/16 06:32 12:51 17:47 WBC RBC Hgb Hct MCV RDW Plt Count Lymph % (Auto) [place] % (Auto) [place] # Seg Neutrophils % Seg Neuts % (Manual) Lymphocytes % (Manual) Monocytes % (Manual) Basophils % (Manual) Nucleated RBC % Seg Neutrophils # Seg Neutrophils # Man Lymphocytes # (Manual) Monocytes # (Manual) Eosinophils # (Manual) Basophils # (Manual) PT INR APTT Heparin Anti-Xa Level POC ABG pH POC ABG pCO2 POC ABG pO2 Sodium Potassium Chloride Carbon Dioxide BUN Creatinine Glucose POC Glucose 207 H 218 H 169 H Calcium Phosphorus Magnesium AST Alkaline Phosphatase C-Reactive Protein Total Protein Albumin Lipase Vitamin B12 TSH Urine WBC (Auto) Urine Chloride Urine Total Protein Vancomycin Trough Crossmatch 10/30/16 10/31/16 10/31/16 23:59 05:25 11:21 WBC RBC Hgb Hct MCV RDW Plt Count Lymph % (Auto) [place] % (Auto) [place] # Seg Neutrophils % Seg Neuts % (Manual) Lymphocytes % (Manual) Monocytes % (Manual) Basophils % (Manual) Nucleated RBC % Seg Neutrophils # Seg Neutrophils # Man Lymphocytes # (Manual) Monocytes # (Manual) Eosinophils # (Manual) Basophils # (Manual) PT INR APTT Heparin Anti-Xa Level POC ABG pH POC ABG pCO2 POC ABG pO2 Sodium Potassium Chloride Carbon Dioxide BUN Creatinine Glucose POC Glucose 138 H 127 H 132 H Calcium Phosphorus Magnesium AST Alkaline Phosphatase C-Reactive Protein Total Protein Albumin Lipase Vitamin B12 TSH Urine WBC (Auto) Urine Chloride Urine Total Protein Vancomycin Trough Crossmatch 10/31/16 10/31/16 11/01/16 17:07 23:54 05:47 WBC RBC Hgb Hct MCV RDW Plt Count Lymph % (Auto) [place] % (Auto) [place] # Seg Neutrophils % Seg Neuts % (Manual) Lymphocytes % (Manual) Monocytes % (Manual) Basophils % (Manual) Nucleated RBC % Seg Neutrophils # Seg Neutrophils # Man Lymphocytes # (Manual) Monocytes # (Manual) Eosinophils # (Manual) Basophils # (Manual) PT INR APTT Heparin Anti-Xa Level POC ABG pH POC ABG pCO2 POC ABG pO2 Sodium Potassium Chloride Carbon Dioxide BUN Creatinine Glucose POC Glucose 138 H 153 H 150 H Calcium Phosphorus Magnesium AST Alkaline Phosphatase C-Reactive Protein Total Protein Albumin Lipase Vitamin B12 TSH Urine WBC (Auto) Urine Chloride Urine Total Protein Vancomycin Trough Crossmatch 11/01/16 11/01/16 11/01/16 06:33 06:33 12:16 WBC 19.2 H RBC 2.51 L Hgb 7.9 L Hct 24.8 L MCV 99 H D RDW 16.1 H Plt Count 569 H Lymph % (Auto) [place] % (Auto) [place] # Seg Neutrophils % Seg Neuts % (Manual) Lymphocytes % (Manual) Monocytes % (Manual) Basophils % (Manual) Nucleated RBC % Seg Neutrophils # Seg Neutrophils # Man Lymphocytes # (Manual) Monocytes # (Manual) Eosinophils # (Manual) Basophils # (Manual) PT INR APTT Heparin Anti-Xa Level POC ABG pH POC ABG pCO2 POC ABG pO2 Sodium Potassium 3.5 L Chloride Carbon Dioxide 21 L BUN Creatinine Glucose 137 H POC Glucose 125 H Calcium 7.7 L Phosphorus Magnesium AST Alkaline Phosphatase 148 H C-Reactive Protein Total Protein 6.2 L Albumin 2.0 L Lipase Vitamin B12 TSH Urine WBC (Auto) Urine Chloride Urine Total Protein Vancomycin Trough Crossmatch 11/01/16 11/02/16 11/02/16 17:37 00:05 04:15 WBC RBC Hgb Hct MCV RDW Plt Count Lymph % (Auto) [place] % (Auto) [place] # Seg Neutrophils % Seg Neuts % (Manual) Lymphocytes % (Manual) Monocytes % (Manual) Basophils % (Manual) Nucleated RBC % Seg Neutrophils # Seg Neutrophils # Man Lymphocytes # (Manual) Monocytes # (Manual) Eosinophils # (Manual) Basophils # (Manual) PT INR APTT Heparin Anti-Xa Level < 0.10 L POC ABG pH POC ABG pCO2 POC ABG pO2 Sodium Potassium 3.2 L Chloride Carbon Dioxide BUN 6 L Creatinine Glucose 135 H POC Glucose 164 H Calcium 7.5 L Phosphorus Magnesium AST Alkaline Phosphatase 132 H C-Reactive Protein Total Protein 6.2 L Albumin 1.8 L Lipase Vitamin B12 TSH Urine WBC (Auto) Urine Chloride Urine Total Protein Vancomycin Trough Crossmatch 11/02/16 11/02/16 11/02/16 04:15 05:54 12:15 WBC 17.7 H RBC 2.43 L Hgb 7.6 L Hct 23.5 L MCV RDW 15.9 H Plt Count 502 H Lymph % (Auto) [place] % (Auto) [place] # Seg Neutrophils % Seg Neuts % (Manual) 84.0 H Lymphocytes % (Manual) 11.0 L Monocytes % (Manual) Basophils % (Manual) Nucleated RBC % 1.0 H Seg Neutrophils # Seg Neutrophils # Man 14.9 H Lymphocytes # (Manual) Monocytes # (Manual) Eosinophils # (Manual) Basophils # (Manual) PT INR APTT Heparin Anti-Xa Level POC ABG pH POC ABG pCO2 POC ABG pO2 Sodium Potassium Chloride Carbon Dioxide BUN Creatinine Glucose POC Glucose 152 H 137 H Calcium Phosphorus Magnesium AST Alkaline Phosphatase C-Reactive Protein Total Protein Albumin Lipase Vitamin B12 TSH Urine WBC (Auto) Urine Chloride Urine Total Protein Vancomycin Trough Crossmatch 11/02/16 11/03/16 11/03/16 17:00 00:05 00:05 WBC RBC Hgb Hct MCV RDW Plt Count Lymph % (Auto) [place] % (Auto) [place] # Seg Neutrophils % Seg Neuts % (Manual) Lymphocytes % (Manual) Monocytes % (Manual) Basophils % (Manual) Nucleated RBC % Seg Neutrophils # Seg Neutrophils # Man Lymphocytes # (Manual) Monocytes # (Manual) Eosinophils # (Manual) Basophils # (Manual) PT INR APTT Heparin Anti-Xa Level POC ABG pH POC ABG pCO2 POC ABG pO2 Sodium Potassium Chloride Carbon Dioxide 20 L BUN 5 L Creatinine Glucose 139 H POC Glucose 161 H Calcium 6.7 L Phosphorus Magnesium 1.2 L AST Alkaline Phosphatase C-Reactive Protein Total Protein Albumin Lipase Vitamin B12 TSH Urine WBC (Auto) Urine Chloride Urine Total Protein Vancomycin Trough Crossmatch 11/03/16 11/03/16 11/03/16 00:05 02:05 04:23 WBC 15.9 H 14.0 H RBC 1.93 L 2.38 L Hgb 5.9 L* 7.3 L Hct 18.9 L* 23.1 L MCV 98 H RDW 15.9 H 15.9 H Plt Count Lymph % (Auto) [place] % (Auto) [place] # Seg Neutrophils % Seg Neuts % (Manual) 85.0 H Lymphocytes % (Manual) 4.0 L Monocytes % (Manual) Basophils % (Manual) Nucleated RBC % Seg Neutrophils # Seg Neutrophils # Man 13.5 H Lymphocytes # (Manual) 0.6 L Monocytes # (Manual) Eosinophils # (Manual) Basophils # (Manual) PT INR APTT Heparin Anti-Xa Level POC ABG pH POC ABG pCO2 POC ABG pO2 Sodium Potassium Chloride Carbon Dioxide BUN 5 L Creatinine Glucose 127 H POC Glucose Calcium 7.2 L Phosphorus Magnesium AST Alkaline Phosphatase C-Reactive Protein Total Protein 5.8 L Albumin 1.5 L Lipase Vitamin B12 TSH Urine WBC (Auto) Urine Chloride Urine Total Protein Vancomycin Trough Crossmatch 11/03/16 11/03/16 11/03/16 09:14 09:27 11:54 WBC RBC Hgb Hct MCV RDW Plt Count Lymph % (Auto) [place] % (Auto) [place] # Seg Neutrophils % Seg Neuts % (Manual) Lymphocytes % (Manual) Monocytes % (Manual) Basophils % (Manual) Nucleated RBC % Seg Neutrophils # Seg Neutrophils # Man Lymphocytes # (Manual) Monocytes # (Manual) Eosinophils # (Manual) Basophils # (Manual) PT INR APTT Heparin Anti-Xa Level 0.11 L POC ABG pH POC ABG pCO2 POC ABG pO2 Sodium Potassium Chloride Carbon Dioxide BUN 5 L Creatinine Glucose 111 H POC Glucose 139 H Calcium 6.7 L Phosphorus Magnesium AST Alkaline Phosphatase C-Reactive Protein Total Protein Albumin Lipase Vitamin B12 TSH Urine WBC (Auto) Urine Chloride Urine Total Protein Vancomycin Trough Crossmatch 11/03/16 11/03/16 11/03/16 16:26 18:01 18:01 WBC RBC Hgb Hct MCV RDW Plt Count Lymph % (Auto) [place] % (Auto) [place] # Seg Neutrophils % Seg Neuts % (Manual) Lymphocytes % (Manual) Monocytes % (Manual) Basophils % (Manual) Nucleated RBC % Seg Neutrophils # Seg Neutrophils # Man Lymphocytes # (Manual) Monocytes # (Manual) Eosinophils # (Manual) Basophils # (Manual) PT INR APTT Heparin Anti-Xa Level 2.00 H POC ABG pH POC ABG pCO2 POC ABG pO2 Sodium Potassium Chloride Carbon Dioxide BUN Creatinine Glucose POC Glucose 142 H Calcium Phosphorus Magnesium AST Alkaline Phosphatase C-Reactive Protein Total Protein Albumin Lipase Vitamin B12 TSH Urine WBC (Auto) Urine Chloride Urine Total Protein Vancomycin Trough Crossmatch See Detail 11/04/16 11/04/16 11/04/16 02:15 02:15 06:35 WBC 11.8 H RBC 2.39 L Hgb 7.4 L Hct 23.1 L MCV RDW 15.9 H Plt Count Lymph % (Auto) [place] % (Auto) [place] # Seg Neutrophils % Seg Neuts % (Manual) 76.0 H Lymphocytes % (Manual) 12.0 L Monocytes % (Manual) 9.0 H Basophils % (Manual) Nucleated RBC % Seg Neutrophils # Seg Neutrophils # Man 9.0 H Lymphocytes # (Manual) Monocytes # (Manual) 1.1 H Eosinophils # (Manual) Basophils # (Manual) PT INR APTT Heparin Anti-Xa Level < 0.10 L POC ABG pH POC ABG pCO2 POC ABG pO2 Sodium Potassium Chloride Carbon Dioxide 21 L BUN 5 L Creatinine Glucose 112 H POC Glucose Calcium 6.8 L Phosphorus Magnesium AST Alkaline Phosphatase C-Reactive Protein Total Protein 5.7 L Albumin 1.7 L Lipase Vitamin B12 TSH Urine WBC (Auto) Urine Chloride Urine Total Protein Vancomycin Trough Crossmatch 11/04/16 11/04/16 11/04/16 10:51 12:58 15:04 WBC RBC Hgb Hct MCV RDW Plt Count Lymph % (Auto) [place] % (Auto) [place] # Seg Neutrophils % Seg Neuts % (Manual) Lymphocytes % (Manual) Monocytes % (Manual) Basophils % (Manual) Nucleated RBC % Seg Neutrophils # Seg Neutrophils # Man Lymphocytes # (Manual) Monocytes # (Manual) Eosinophils # (Manual) Basophils # (Manual) PT INR APTT Heparin Anti-Xa Level 1.05 H POC ABG pH POC ABG pCO2 33.7 L POC ABG pO2 60 L Sodium Potassium Chloride Carbon Dioxide BUN Creatinine Glucose POC Glucose 118 H Calcium Phosphorus Magnesium AST Alkaline Phosphatase C-Reactive Protein Total Protein Albumin Lipase Vitamin B12 TSH Urine WBC (Auto) Urine Chloride Urine Total Protein Vancomycin Trough Crossmatch 11/04/16 11/04/16 11/05/16 17:20 20:31 02:30 WBC RBC Hgb Hct MCV RDW Plt Count Lymph % (Auto) [place] % (Auto) [place] # Seg Neutrophils % Seg Neuts % (Manual) Lymphocytes % (Manual) Monocytes % (Manual) Basophils % (Manual) Nucleated RBC % Seg Neutrophils # Seg Neutrophils # Man Lymphocytes # (Manual) Monocytes # (Manual) Eosinophils # (Manual) Basophils # (Manual) PT INR APTT Heparin Anti-Xa Level POC ABG pH POC ABG pCO2 POC ABG pO2 Sodium Potassium 3.5 L Chloride Carbon Dioxide 18 L BUN 5 L Creatinine 0.6 L Glucose 110 H POC Glucose 228 H 169 H Calcium 7.1 L Phosphorus Magnesium AST Alkaline Phosphatase C-Reactive Protein Total Protein Albumin 1.9 L Lipase Vitamin B12 TSH Urine WBC (Auto) Urine Chloride Urine Total Protein Vancomycin Trough Crossmatch 11/05/16 11/05/16 11/05/16 02:30 17:52 21:07 WBC 14.1 H RBC Hgb Hct MCV RDW 16.7 H Plt Count Lymph % (Auto) [place] % (Auto) [place] # Seg Neutrophils % Seg Neuts % (Manual) 80.0 H Lymphocytes % (Manual) 6.0 L Monocytes % (Manual) 8.0 H Basophils % (Manual) Nucleated RBC % Seg Neutrophils # Seg Neutrophils # Man 11.3 H Lymphocytes # (Manual) 0.8 L Monocytes # (Manual) 1.1 H Eosinophils # (Manual) Basophils # (Manual) PT INR APTT Heparin Anti-Xa Level < 0.10 L POC ABG pH POC ABG pCO2 POC ABG pO2 Sodium Potassium Chloride Carbon Dioxide BUN Creatinine Glucose POC Glucose 174 H Calcium Phosphorus Magnesium AST Alkaline Phosphatase C-Reactive Protein Total Protein Albumin Lipase Vitamin B12 TSH Urine WBC (Auto) Urine Chloride Urine Total Protein Vancomycin Trough Crossmatch 11/05/16 11/06/16 11/06/16 23:30 05:00 05:00 WBC 15.2 H RBC 3.29 L Hgb 10.0 L Hct MCV RDW 16.9 H Plt Count Lymph % (Auto) [place] % (Auto) [place] # Seg Neutrophils % Seg Neuts % (Manual) Lymphocytes % (Manual) Monocytes % (Manual) Basophils % (Manual) Nucleated RBC % Seg Neutrophils # Seg Neutrophils # Man Lymphocytes # (Manual) Monocytes # (Manual) Eosinophils # (Manual) Basophils # (Manual) PT INR APTT Heparin Anti-Xa Level 0.94 H POC ABG pH POC ABG pCO2 POC ABG pO2 Sodium Potassium Chloride Carbon Dioxide BUN Creatinine Glucose POC Glucose 131 H Calcium Phosphorus Magnesium AST Alkaline Phosphatase C-Reactive Protein Total Protein Albumin Lipase Vitamin B12 TSH Urine WBC (Auto) Urine Chloride Urine Total Protein Vancomycin Trough Crossmatch 11/06/16 11/06/16 11/06/16 05:00 11:45 18:23 WBC RBC Hgb Hct MCV RDW Plt Count Lymph % (Auto) [place] % (Auto) [place] # Seg Neutrophils % Seg Neuts % (Manual) Lymphocytes % (Manual) Monocytes % (Manual) Basophils % (Manual) Nucleated RBC % Seg Neutrophils # Seg Neutrophils # Man Lymphocytes # (Manual) Monocytes # (Manual) Eosinophils # (Manual) Basophils # (Manual) PT INR APTT Heparin Anti-Xa Level POC ABG pH POC ABG pCO2 POC ABG pO2 Sodium Potassium 3.5 L Chloride 107.1 H Carbon Dioxide 20 L BUN 4 L Creatinine 0.6 L Glucose 104 H POC Glucose 141 H 255 H Calcium 6.7 L Phosphorus Magnesium AST Alkaline Phosphatase C-Reactive Protein Total Protein Albumin Lipase Vitamin B12 TSH Urine WBC (Auto) Urine Chloride Urine Total Protein Vancomycin Trough Crossmatch 11/06/16 11/06/16 11/07/16 22:07 23:07 11:41 WBC RBC Hgb Hct MCV RDW Plt Count Lymph % (Auto) [place] % (Auto) [place] # Seg Neutrophils % Seg Neuts % (Manual) Lymphocytes % (Manual) Monocytes % (Manual) Basophils % (Manual) Nucleated RBC % Seg Neutrophils # Seg Neutrophils # Man Lymphocytes # (Manual) Monocytes # (Manual) Eosinophils # (Manual) Basophils # (Manual) PT INR APTT Heparin Anti-Xa Level 0.80 H POC ABG pH POC ABG pCO2 POC ABG pO2 Sodium Potassium Chloride Carbon Dioxide BUN Creatinine Glucose POC Glucose 183 H 132 H Calcium Phosphorus Magnesium AST Alkaline Phosphatase C-Reactive Protein Total Protein Albumin Lipase Vitamin B12 TSH Urine WBC (Auto) Urine Chloride Urine Total Protein Vancomycin Trough Crossmatch 11/07/16 11/07/16 11/07/16 12:17 17:05 17:58 WBC RBC Hgb Hct MCV RDW Plt Count Lymph % (Auto) [place] % (Auto) [place] # Seg Neutrophils % Seg Neuts % (Manual) Lymphocytes % (Manual) Monocytes % (Manual) Basophils % (Manual) Nucleated RBC % Seg Neutrophils # Seg Neutrophils # Man Lymphocytes # (Manual) Monocytes # (Manual) Eosinophils # (Manual) Basophils # (Manual) PT INR APTT Heparin Anti-Xa Level 0.87 H POC ABG pH 7.324 L POC ABG pCO2 POC ABG pO2 Sodium Potassium Chloride Carbon Dioxide BUN Creatinine Glucose POC Glucose 158 H Calcium Phosphorus Magnesium AST Alkaline Phosphatase C-Reactive Protein Total Protein Albumin Lipase Vitamin B12 TSH Urine WBC (Auto) Urine Chloride Urine Total Protein Vancomycin Trough Crossmatch 11/07/16 11/07/16 11/07/16 23:26 Unknown Unknown WBC 12.3 H RBC 2.96 L Hgb 9.1 L Hct 27.9 L MCV RDW 16.8 H Plt Count Lymph % (Auto) [place] % (Auto) [place] # Seg Neutrophils % Seg Neuts % (Manual) 80.0 H Lymphocytes % (Manual) 7.0 L Monocytes % (Manual) Basophils % (Manual) Nucleated RBC % Seg Neutrophils # Seg Neutrophils # Man 9.8 H Lymphocytes # (Manual) 0.9 L Monocytes # (Manual) Eosinophils # (Manual) Basophils # (Manual) PT INR APTT Heparin Anti-Xa Level POC ABG pH POC ABG pCO2 POC ABG pO2 Sodium Potassium Chloride Carbon Dioxide 19 L BUN Creatinine Glucose 106 H POC Glucose 130 H Calcium 6.9 L Phosphorus Magnesium AST Alkaline Phosphatase C-Reactive Protein Total Protein Albumin Lipase Vitamin B12 TSH Urine WBC (Auto) Urine Chloride Urine Total Protein Vancomycin Trough Crossmatch 11/07/16 11/08/16 11/08/16 Unknown 05:14 05:20 WBC 12.4 H RBC 3.04 L Hgb 9.2 L Hct 28.8 L MCV RDW 16.6 H Plt Count Lymph % (Auto) [place] % (Auto) [place] # Seg Neutrophils % Seg Neuts % (Manual) 77.0 H Lymphocytes % (Manual) 5.0 L Monocytes % (Manual) Basophils % (Manual) 2.0 H Nucleated RBC % Seg Neutrophils # Seg Neutrophils # Man 9.5 H Lymphocytes # (Manual) 0.6 L Monocytes # (Manual) Eosinophils # (Manual) Basophils # (Manual) 0.2 H PT INR APTT Heparin Anti-Xa Level 0.90 H POC ABG pH POC ABG pCO2 POC ABG pO2 Sodium Potassium Chloride Carbon Dioxide BUN Creatinine Glucose POC Glucose 204 H Calcium Phosphorus Magnesium AST Alkaline Phosphatase C-Reactive Protein Total Protein Albumin Lipase Vitamin B12 TSH Urine WBC (Auto) Urine Chloride Urine Total Protein Vancomycin Trough Crossmatch 11/08/16 11/08/16 11/08/16 05:20 12:10 13:10 WBC RBC Hgb Hct MCV RDW Plt Count Lymph % (Auto) [place] % (Auto) [place] # Seg Neutrophils % Seg Neuts % (Manual) Lymphocytes % (Manual) Monocytes % (Manual) Basophils % (Manual) Nucleated RBC % Seg Neutrophils # Seg Neutrophils # Man Lymphocytes # (Manual) Monocytes # (Manual) Eosinophils # (Manual) Basophils # (Manual) PT INR APTT Heparin Anti-Xa Level POC ABG pH POC ABG pCO2 33.7 L POC ABG pO2 Sodium 136 L Potassium Chloride Carbon Dioxide 19 L BUN Creatinine Glucose 192 H POC Glucose 180 H Calcium 7.1 L Phosphorus Magnesium AST Alkaline Phosphatase C-Reactive Protein Total Protein Albumin Lipase Vitamin B12 TSH Urine WBC (Auto) Urine Chloride Urine Total Protein Vancomycin Trough Crossmatch 11/08/16 11/08/16 11/08/16 17:26 20:45 23:34 WBC RBC Hgb Hct MCV RDW Plt Count Lymph % (Auto) [place] % (Auto) [place] # Seg Neutrophils % Seg Neuts % (Manual) Lymphocytes % (Manual) Monocytes % (Manual) Basophils % (Manual) Nucleated RBC % Seg Neutrophils # Seg Neutrophils # Man Lymphocytes # (Manual) Monocytes # (Manual) Eosinophils # (Manual) Basophils # (Manual) PT INR APTT Heparin Anti-Xa Level POC ABG pH POC ABG pCO2 POC ABG pO2 Sodium Potassium Chloride Carbon Dioxide BUN Creatinine Glucose POC Glucose 187 H 178 H Calcium Phosphorus Magnesium AST Alkaline Phosphatase C-Reactive Protein Total Protein Albumin Lipase Vitamin B12 TSH Urine WBC (Auto) Urine Chloride Urine Total Protein Vancomycin Trough 35.4 H Crossmatch 11/09/16 11/09/16 11/09/16 05:30 05:30 05:59 WBC 11.5 H RBC 2.96 L Hgb 9.2 L Hct 28.2 L MCV RDW 16.4 H Plt Count Lymph % (Auto) [place] % (Auto) [place] # Seg Neutrophils % Seg Neuts % (Manual) 76.0 H Lymphocytes % (Manual) 2.0 L Monocytes % (Manual) Basophils % (Manual) Nucleated RBC % Seg Neutrophils # Seg Neutrophils # Man 8.7 H Lymphocytes # (Manual) 0.2 L Monocytes # (Manual) Eosinophils # (Manual) Basophils # (Manual) PT INR APTT Heparin Anti-Xa Level POC ABG pH POC ABG pCO2 POC ABG pO2 Sodium Potassium 3.4 L Chloride 107.6 H Carbon Dioxide 19 L BUN Creatinine 0.6 L Glucose 207 H POC Glucose 263 H Calcium 7.3 L Phosphorus Magnesium AST Alkaline Phosphatase C-Reactive Protein Total Protein Albumin Lipase Vitamin B12 TSH Urine WBC (Auto) Urine Chloride Urine Total Protein Vancomycin Trough Crossmatch 11/09/16 11/09/16 11/09/16 11:49 15:24 18:04 WBC RBC Hgb Hct MCV RDW Plt Count Lymph % (Auto) [place] % (Auto) [place] # Seg Neutrophils % Seg Neuts % (Manual) Lymphocytes % (Manual) Monocytes % (Manual) Basophils % (Manual) Nucleated RBC % Seg Neutrophils # Seg Neutrophils # Man Lymphocytes # (Manual) Monocytes # (Manual) Eosinophils # (Manual) Basophils # (Manual) PT INR APTT Heparin Anti-Xa Level POC ABG pH POC ABG pCO2 33.8 L POC ABG pO2 131 H Sodium Potassium Chloride Carbon Dioxide BUN Creatinine Glucose POC Glucose 269 H 242 H Calcium Phosphorus Magnesium AST Alkaline Phosphatase C-Reactive Protein Total Protein Albumin Lipase Vitamin B12 TSH Urine WBC (Auto) Urine Chloride Urine Total Protein Vancomycin Trough Crossmatch 11/09/16 11/10/16 11/10/16 22:57 04:30 04:30 WBC 15.7 H RBC 3.17 L Hgb 9.7 L Hct 30.2 L MCV RDW 16.2 H Plt Count Lymph % (Auto) [place] % (Auto) [place] # Seg Neutrophils % Seg Neuts % (Manual) Lymphocytes % (Manual) Monocytes % (Manual) Basophils % (Manual) Nucleated RBC % Seg Neutrophils # Seg Neutrophils # Man 8.5 H Lymphocytes # (Manual) Monocytes # (Manual) Eosinophils # (Manual) 0.5 H Basophils # (Manual) PT INR APTT Heparin Anti-Xa Level POC ABG pH POC ABG pCO2 POC ABG pO2 Sodium Potassium Chloride Carbon Dioxide 19 L BUN Creatinine 0.6 L Glucose 199 H POC Glucose 239 H Calcium 7.8 L Phosphorus Magnesium AST Alkaline Phosphatase C-Reactive Protein Total Protein Albumin Lipase Vitamin B12 TSH Urine WBC (Auto) Urine Chloride Urine Total Protein Vancomycin Trough Crossmatch 11/10/16 11/10/16 11/10/16 04:30 11:32 16:00 WBC RBC Hgb Hct MCV RDW Plt Count Lymph % (Auto) [place] % (Auto) [place] # Seg Neutrophils % Seg Neuts % (Manual) Lymphocytes % (Manual) Monocytes % (Manual) Basophils % (Manual) Nucleated RBC % Seg Neutrophils # Seg Neutrophils # Man Lymphocytes # (Manual) Monocytes # (Manual) Eosinophils # (Manual) Basophils # (Manual) PT INR APTT Heparin Anti-Xa Level 1.09 H < 0.10 L POC ABG pH POC ABG pCO2 POC ABG pO2 Sodium Potassium Chloride Carbon Dioxide BUN Creatinine Glucose POC Glucose 211 H Calcium Phosphorus Magnesium AST Alkaline Phosphatase C-Reactive Protein Total Protein Albumin Lipase Vitamin B12 TSH Urine WBC (Auto) Urine Chloride Urine Total Protein Vancomycin Trough Crossmatch 11/10/16 11/10/16 11/10/16 17:39 18:00 23:06 WBC RBC Hgb Hct MCV RDW Plt Count Lymph % (Auto) [place] % (Auto) [place] # Seg Neutrophils % Seg Neuts % (Manual) Lymphocytes % (Manual) Monocytes % (Manual) Basophils % (Manual) Nucleated RBC % Seg Neutrophils # Seg Neutrophils # Man Lymphocytes # (Manual) Monocytes # (Manual) Eosinophils # (Manual) Basophils # (Manual) PT INR APTT Heparin Anti-Xa Level 0.85 H POC ABG pH POC ABG pCO2 POC ABG pO2 Sodium Potassium Chloride Carbon Dioxide BUN Creatinine Glucose POC Glucose 249 H 220 H Calcium Phosphorus Magnesium AST Alkaline Phosphatase C-Reactive Protein Total Protein Albumin Lipase Vitamin B12 TSH Urine WBC (Auto) Urine Chloride Urine Total Protein Vancomycin Trough Crossmatch 11/11/16 11/11/16 11/11/16 05:56 06:15 06:15 WBC 13.3 H RBC 2.87 L Hgb 8.7 L Hct 27.2 L MCV RDW 16.4 H Plt Count Lymph % (Auto) [place] % (Auto) [place] # 0.9 H Seg Neutrophils % 78.9 H Seg Neuts % (Manual) Lymphocytes % (Manual) Monocytes % (Manual) Basophils % (Manual) Nucleated RBC % Seg Neutrophils # 10.5 H Seg Neutrophils # Man Lymphocytes # (Manual) Monocytes # (Manual) Eosinophils # (Manual) Basophils # (Manual) PT INR APTT Heparin Anti-Xa Level POC ABG pH POC ABG pCO2 POC ABG pO2 Sodium Potassium 3.2 L Chloride Carbon Dioxide 19 L BUN Creatinine Glucose POC Glucose 117 H Calcium 7.6 L Phosphorus Magnesium AST Alkaline Phosphatase C-Reactive Protein Total Protein Albumin Lipase Vitamin B12 TSH Urine WBC (Auto) Urine Chloride Urine Total Protein Vancomycin Trough Crossmatch 11/11/16 11/11/16 11/11/16 12:26 16:58 17:33 WBC RBC Hgb Hct MCV RDW Plt Count Lymph % (Auto) [place] % (Auto) [place] # Seg Neutrophils % Seg Neuts % (Manual) Lymphocytes % (Manual) Monocytes % (Manual) Basophils % (Manual) Nucleated RBC % Seg Neutrophils # Seg Neutrophils # Man Lymphocytes # (Manual) Monocytes # (Manual) Eosinophils # (Manual) Basophils # (Manual) PT INR APTT Heparin Anti-Xa Level < 0.10 L POC ABG pH POC ABG pCO2 POC ABG pO2 Sodium Potassium Chloride Carbon Dioxide BUN Creatinine Glucose POC Glucose 114 H 161 H Calcium Phosphorus Magnesium AST Alkaline Phosphatase C-Reactive Protein Total Protein Albumin Lipase Vitamin B12 TSH Urine WBC (Auto) Urine Chloride Urine Total Protein Vancomycin Trough Crossmatch 11/12/16 11/12/16 11/12/16 05:00 05:00 05:00 WBC 12.8 H RBC 2.75 L Hgb 8.4 L Hct 25.7 L MCV RDW 16.3 H Plt Count Lymph % (Auto) [place] % (Auto) 7.5 H [place] # 1.0 H Seg Neutrophils % 78.0 H Seg Neuts % (Manual) Lymphocytes % (Manual) Monocytes % (Manual) Basophils % (Manual) Nucleated RBC % Seg Neutrophils # 10.0 H Seg Neutrophils # Man Lymphocytes # (Manual) Monocytes # (Manual) Eosinophils # (Manual) Basophils # (Manual) PT INR APTT Heparin Anti-Xa Level 0.87 H POC ABG pH POC ABG pCO2 POC ABG pO2 Sodium Potassium 3.4 L Chloride Carbon Dioxide 19 L BUN Creatinine Glucose 112 H POC Glucose Calcium 7.7 L Phosphorus Magnesium AST Alkaline Phosphatase C-Reactive Protein Total Protein Albumin Lipase Vitamin B12 TSH Urine WBC (Auto) Urine Chloride Urine Total Protein Vancomycin Trough Crossmatch 11/12/16 11/12/16 11/13/16 11:18 16:40 00:44 WBC RBC Hgb Hct MCV RDW Plt Count Lymph % (Auto) [place] % (Auto) [place] # Seg Neutrophils % Seg Neuts % (Manual) Lymphocytes % (Manual) Monocytes % (Manual) Basophils % (Manual) Nucleated RBC % Seg Neutrophils # Seg Neutrophils # Man Lymphocytes # (Manual) Monocytes # (Manual) Eosinophils # (Manual) Basophils # (Manual) PT INR APTT Heparin Anti-Xa Level POC ABG pH POC ABG pCO2 POC ABG pO2 Sodium Potassium Chloride Carbon Dioxide BUN Creatinine Glucose POC Glucose 135 H 139 H 169 H Calcium Phosphorus Magnesium AST Alkaline Phosphatase C-Reactive Protein Total Protein Albumin Lipase Vitamin B12 TSH Urine WBC (Auto) Urine Chloride Urine Total Protein Vancomycin Trough Crossmatch 11/13/16 11/13/16 11/13/16 05:28 05:28 06:02 WBC 12.7 H RBC 2.93 L Hgb 9.0 L Hct 27.6 L MCV RDW 16.1 H Plt Count Lymph % (Auto) [place] % (Auto) [place] # Seg Neutrophils % 78.6 H Seg Neuts % (Manual) Lymphocytes % (Manual) Monocytes % (Manual) Basophils % (Manual) Nucleated RBC % Seg Neutrophils # 10.0 H Seg Neutrophils # Man Lymphocytes # (Manual) Monocytes # (Manual) Eosinophils # (Manual) Basophils # (Manual) PT INR APTT Heparin Anti-Xa Level POC ABG pH POC ABG pCO2 POC ABG pO2 Sodium Potassium Chloride Carbon Dioxide 17 L BUN Creatinine Glucose 116 H POC Glucose 112 H Calcium 7.8 L Phosphorus Magnesium AST Alkaline Phosphatase C-Reactive Protein Total Protein Albumin Lipase Vitamin B12 TSH Urine WBC (Auto) Urine Chloride Urine Total Protein Vancomycin Trough Crossmatch 11/13/16 11/13/16 11/13/16 12:34 16:55 17:00 WBC RBC Hgb Hct MCV RDW Plt Count Lymph % (Auto) [place] % (Auto) [place] # Seg Neutrophils % Seg Neuts % (Manual) Lymphocytes % (Manual) Monocytes % (Manual) Basophils % (Manual) Nucleated RBC % Seg Neutrophils # Seg Neutrophils # Man Lymphocytes # (Manual) Monocytes # (Manual) Eosinophils # (Manual) Basophils # (Manual) PT INR APTT Heparin Anti-Xa Level POC ABG pH POC ABG pCO2 22.9 L POC ABG pO2 53 L Sodium Potassium Chloride Carbon Dioxide BUN Creatinine Glucose POC Glucose 109 H 122 H Calcium Phosphorus Magnesium AST Alkaline Phosphatase C-Reactive Protein Total Protein Albumin Lipase Vitamin B12 TSH Urine WBC (Auto) Urine Chloride Urine Total Protein Vancomycin Trough Crossmatch 11/13/16 11/14/16 11/14/16 23:33 04:42 04:42 WBC 11.7 H RBC 3.01 L Hgb 9.3 L Hct 28.9 L MCV RDW 16.5 H Plt Count Lymph % (Auto) [place] % (Auto) [place] # Seg Neutrophils % Seg Neuts % (Manual) 79.0 H Lymphocytes % (Manual) 10.0 L Monocytes % (Manual) Basophils % (Manual) Nucleated RBC % Seg Neutrophils # Seg Neutrophils # Man 9.2 H Lymphocytes # (Manual) Monocytes # (Manual) Eosinophils # (Manual) Basophils # (Manual) PT INR APTT Heparin Anti-Xa Level POC ABG pH POC ABG pCO2 POC ABG pO2 Sodium Potassium Chloride Carbon Dioxide 16 L BUN Creatinine Glucose 102 H POC Glucose 173 H Calcium 7.5 L Phosphorus Magnesium AST Alkaline Phosphatase C-Reactive Protein Total Protein Albumin Lipase Vitamin B12 TSH Urine WBC (Auto) Urine Chloride Urine Total Protein Vancomycin Trough Crossmatch 11/14/16 11/14/16 11/14/16 11:43 16:57 19:45 WBC RBC Hgb Hct MCV RDW Plt Count Lymph % (Auto) [place] % (Auto) [place] # Seg Neutrophils % Seg Neuts % (Manual) Lymphocytes % (Manual) Monocytes % (Manual) Basophils % (Manual) Nucleated RBC % Seg Neutrophils # Seg Neutrophils # Man Lymphocytes # (Manual) Monocytes # (Manual) Eosinophils # (Manual) Basophils # (Manual) PT INR APTT Heparin Anti-Xa Level 0.71 H POC ABG pH POC ABG pCO2 POC ABG pO2 Sodium Potassium Chloride Carbon Dioxide BUN Creatinine Glucose POC Glucose 130 H 209 H Calcium Phosphorus Magnesium AST Alkaline Phosphatase C-Reactive Protein Total Protein Albumin Lipase Vitamin B12 TSH Urine WBC (Auto) Urine Chloride Urine Total Protein Vancomycin Trough Crossmatch 11/14/16 11/15/16 11/16/16 23:43 23:47 06:11 WBC RBC Hgb Hct MCV RDW Plt Count Lymph % (Auto) [place] % (Auto) [place] # Seg Neutrophils % Seg Neuts % (Manual) Lymphocytes % (Manual) Monocytes % (Manual) Basophils % (Manual) Nucleated RBC % Seg Neutrophils # Seg Neutrophils # Man Lymphocytes # (Manual) Monocytes # (Manual) Eosinophils # (Manual) Basophils # (Manual) PT INR APTT Heparin Anti-Xa Level POC ABG pH POC ABG pCO2 POC ABG pO2 Sodium Potassium Chloride Carbon Dioxide BUN Creatinine Glucose POC Glucose 167 H 114 H 125 H Calcium Phosphorus Magnesium AST Alkaline Phosphatase C-Reactive Protein Total Protein Albumin Lipase Vitamin B12 TSH Urine WBC (Auto) Urine Chloride Urine Total Protein Vancomycin Trough Crossmatch 11/16/16 11/16/16 11/16/16 09:05 09:05 09:05 WBC RBC 2.53 L Hgb 8.0 L Hct 23.7 L MCV RDW 15.9 H Plt Count Lymph % (Auto) [place] % (Auto) [place] # Seg Neutrophils % Seg Neuts % (Manual) Lymphocytes % (Manual) Monocytes % (Manual) Basophils % (Manual) Nucleated RBC % Seg Neutrophils # Seg Neutrophils # Man Lymphocytes # (Manual) Monocytes # (Manual) Eosinophils # (Manual) Basophils # (Manual) PT INR APTT Heparin Anti-Xa Level POC ABG pH POC ABG pCO2 POC ABG pO2 Sodium Potassium 2.5 L* D Chloride Carbon Dioxide 19 L BUN 5 L Creatinine Glucose 103 H POC Glucose Calcium 6.6 L Phosphorus Magnesium 1.3 L AST Alkaline Phosphatase C-Reactive Protein Total Protein Albumin Lipase Vitamin B12 TSH Urine WBC (Auto) Urine Chloride Urine Total Protein Vancomycin Trough Crossmatch 11/16/16 11/16/16 11/16/16 12:15 13:00 14:45 WBC RBC Hgb Hct MCV RDW Plt Count Lymph % (Auto) [place] % (Auto) [place] # Seg Neutrophils % Seg Neuts % (Manual) Lymphocytes % (Manual) Monocytes % (Manual) Basophils % (Manual) Nucleated RBC % Seg Neutrophils # Seg Neutrophils # Man Lymphocytes # (Manual) Monocytes # (Manual) Eosinophils # (Manual) Basophils # (Manual) PT 19.1 H INR 1.61 H APTT Heparin Anti-Xa Level POC ABG pH 7.479 H POC ABG pCO2 23.6 L POC ABG pO2 Sodium Potassium Chloride Carbon Dioxide BUN Creatinine Glucose POC Glucose 129 H Calcium Phosphorus Magnesium AST Alkaline Phosphatase C-Reactive Protein Total Protein Albumin Lipase Vitamin B12 TSH Urine WBC (Auto) Urine Chloride Urine Total Protein Vancomycin Trough Crossmatch 11/16/16 11/17/16 11/17/16 17:43 00:30 04:32 WBC RBC Hgb Hct MCV RDW Plt Count Lymph % (Auto) [place] % (Auto) [place] # Seg Neutrophils % Seg Neuts % (Manual) Lymphocytes % (Manual) Monocytes % (Manual) Basophils % (Manual) Nucleated RBC % Seg Neutrophils # Seg Neutrophils # Man Lymphocytes # (Manual) Monocytes # (Manual) Eosinophils # (Manual) Basophils # (Manual) PT INR APTT Heparin Anti-Xa Level POC ABG pH POC ABG pCO2 POC ABG pO2 Sodium Potassium Chloride Carbon Dioxide 18 L BUN Creatinine Glucose 127 H POC Glucose 224 H 259 H Calcium 7.5 L Phosphorus Magnesium AST Alkaline Phosphatase C-Reactive Protein Total Protein Albumin Lipase Vitamin B12 TSH Urine WBC (Auto) Urine Chloride Urine Total Protein Vancomycin Trough Crossmatch 11/17/16 11/17/16 11/17/16 05:42 08:34 12:19 WBC RBC 2.85 L Hgb 8.9 L Hct 26.5 L MCV RDW 16.2 H Plt Count Lymph % (Auto) [place] % (Auto) [place] # Seg Neutrophils % Seg Neuts % (Manual) Lymphocytes % (Manual) Monocytes % (Manual) Basophils % (Manual) Nucleated RBC % Seg Neutrophils # Seg Neutrophils # Man Lymphocytes # (Manual) Monocytes # (Manual) Eosinophils # (Manual) Basophils # (Manual) PT INR APTT Heparin Anti-Xa Level POC ABG pH POC ABG pCO2 POC ABG pO2 Sodium Potassium Chloride Carbon Dioxide BUN Creatinine Glucose POC Glucose 118 H 264 H Calcium Phosphorus Magnesium AST Alkaline Phosphatase C-Reactive Protein Total Protein Albumin Lipase Vitamin B12 TSH Urine WBC (Auto) Urine Chloride Urine Total Protein Vancomycin Trough Crossmatch 11/17/16 11/17/16 11/18/16 16:52 23:44 04:53 WBC RBC Hgb Hct MCV RDW Plt Count Lymph % (Auto) [place] % (Auto) [place] # Seg Neutrophils % Seg Neuts % (Manual) Lymphocytes % (Manual) Monocytes % (Manual) Basophils % (Manual) Nucleated RBC % Seg Neutrophils # Seg Neutrophils # Man Lymphocytes # (Manual) Monocytes # (Manual) Eosinophils # (Manual) Basophils # (Manual) PT INR APTT Heparin Anti-Xa Level POC ABG pH POC ABG pCO2 POC ABG pO2 Sodium Potassium Chloride Carbon Dioxide BUN Creatinine Glucose POC Glucose 256 H 109 H 287 H Calcium Phosphorus Magnesium AST Alkaline Phosphatase C-Reactive Protein Total Protein Albumin Lipase Vitamin B12 TSH Urine WBC (Auto) Urine Chloride Urine Total Protein Vancomycin Trough Crossmatch 11/18/16 11/18/16 11/18/16 05:31 05:45 05:45 WBC RBC Hgb Hct MCV RDW Plt Count Lymph % (Auto) [place] % (Auto) [place] # Seg Neutrophils % Seg Neuts % (Manual) Lymphocytes % (Manual) Monocytes % (Manual) Basophils % (Manual) Nucleated RBC % Seg Neutrophils # Seg Neutrophils # Man Lymphocytes # (Manual) Monocytes # (Manual) Eosinophils # (Manual) Basophils # (Manual) PT 20.1 H INR 1.72 H APTT 131.1 H* Heparin Anti-Xa Level 0.18 L POC ABG pH 7.252 L POC ABG pCO2 32.0 L POC ABG pO2 Sodium Potassium Chloride 107.1 H Carbon Dioxide 17 L BUN Creatinine Glucose 284 H POC Glucose Calcium 7.2 L Phosphorus Magnesium AST Alkaline Phosphatase C-Reactive Protein Total Protein 5.5 L Albumin 2.1 L Lipase Vitamin B12 TSH Urine WBC (Auto) Urine Chloride Urine Total Protein Vancomycin Trough Crossmatch 11/18/16 11/18/16 11/18/16 05:45 09:17 12:06 WBC 13.3 H RBC 3.07 L Hgb 9.2 L Hct 29.5 L MCV RDW 16.9 H Plt Count Lymph % (Auto) 11.0 L [place] % (Auto) [place] # Seg Neutrophils % 82.9 H Seg Neuts % (Manual) Lymphocytes % (Manual) Monocytes % (Manual) Basophils % (Manual) Nucleated RBC % Seg Neutrophils # 11.0 H Seg Neutrophils # Man Lymphocytes # (Manual) Monocytes # (Manual) Eosinophils # (Manual) Basophils # (Manual) PT INR APTT Heparin Anti-Xa Level POC ABG pH POC ABG pCO2 24.3 L POC ABG pO2 79 L Sodium Potassium Chloride Carbon Dioxide BUN Creatinine Glucose POC Glucose 433 H Calcium Phosphorus Magnesium AST Alkaline Phosphatase C-Reactive Protein Total Protein Albumin Lipase Vitamin B12 TSH Urine WBC (Auto) Urine Chloride Urine Total Protein Vancomycin Trough Crossmatch 11/18/16 11/18/16 11/18/16 12:09 13:00 17:22 WBC 12.6 H RBC 2.79 L Hgb 8.6 L Hct 26.6 L MCV RDW 17.0 H Plt Count Lymph % (Auto) [place] % (Auto) [place] # Seg Neutrophils % Seg Neuts % (Manual) 90.0 H Lymphocytes % (Manual) 8.0 L Monocytes % (Manual) Basophils % (Manual) Nucleated RBC % Seg Neutrophils # Seg Neutrophils # Man 11.3 H Lymphocytes # (Manual) 1.0 L Monocytes # (Manual) Eosinophils # (Manual) Basophils # (Manual) PT INR APTT Heparin Anti-Xa Level POC ABG pH POC ABG pCO2 POC ABG pO2 Sodium Potassium Chloride Carbon Dioxide BUN Creatinine Glucose POC Glucose 429 H 297 H Calcium Phosphorus Magnesium AST Alkaline Phosphatase C-Reactive Protein Total Protein Albumin Lipase Vitamin B12 TSH Urine WBC (Auto) Urine Chloride Urine Total Protein Vancomycin Trough Crossmatch 11/18/16 11/19/16 11/19/16 23:27 04:30 04:30 WBC RBC 2.92 L Hgb 8.8 L Hct 27.0 L MCV RDW 16.6 H Plt Count Lymph % (Auto) [place] % (Auto) [place] # Seg Neutrophils % Seg Neuts % (Manual) Lymphocytes % (Manual) Monocytes % (Manual) Basophils % (Manual) Nucleated RBC % Seg Neutrophils # Seg Neutrophils # Man Lymphocytes # (Manual) Monocytes # (Manual) Eosinophils # (Manual) Basophils # (Manual) PT INR APTT Heparin Anti-Xa Level POC ABG pH POC ABG pCO2 POC ABG pO2 Sodium Potassium 3.0 L Chloride 107.9 H Carbon Dioxide 20 L BUN Creatinine Glucose 231 H POC Glucose 268 H Calcium 7.1 L Phosphorus Magnesium AST Alkaline Phosphatase C-Reactive Protein Total Protein 5.5 L Albumin 2.1 L Lipase Vitamin B12 TSH Urine WBC (Auto) Urine Chloride Urine Total Protein Vancomycin Trough Crossmatch 11/19/16 11/19/16 11/19/16 04:40 06:40 10:00 WBC RBC Hgb Hct MCV RDW Plt Count Lymph % (Auto) [place] % (Auto) [place] # Seg Neutrophils % Seg Neuts % (Manual) Lymphocytes % (Manual) Monocytes % (Manual) Basophils % (Manual) Nucleated RBC % Seg Neutrophils # Seg Neutrophils # Man Lymphocytes # (Manual) Monocytes # (Manual) Eosinophils # (Manual) Basophils # (Manual) PT INR APTT Heparin Anti-Xa Level POC ABG pH POC ABG pCO2 POC ABG pO2 Sodium Potassium Chloride Carbon Dioxide BUN Creatinine Glucose POC Glucose 267 H 244 H Calcium Phosphorus Magnesium 1.4 L AST Alkaline Phosphatase C-Reactive Protein Total Protein Albumin Lipase Vitamin B12 TSH Urine WBC (Auto) Urine Chloride Urine Total Protein Vancomycin Trough Crossmatch 11/19/16 11/19/16 11/19/16 12:08 18:10 23:40 WBC RBC Hgb Hct MCV RDW Plt Count Lymph % (Auto) [place] % (Auto) [place] # Seg Neutrophils % Seg Neuts % (Manual) Lymphocytes % (Manual) Monocytes % (Manual) Basophils % (Manual) Nucleated RBC % Seg Neutrophils # Seg Neutrophils # Man Lymphocytes # (Manual) Monocytes # (Manual) Eosinophils # (Manual) Basophils # (Manual) PT INR APTT Heparin Anti-Xa Level POC ABG pH POC ABG pCO2 POC ABG pO2 Sodium Potassium Chloride Carbon Dioxide BUN Creatinine Glucose POC Glucose 254 H 265 H 197 H Calcium Phosphorus Magnesium AST Alkaline Phosphatase C-Reactive Protein Total Protein Albumin Lipase Vitamin B12 TSH Urine WBC (Auto) Urine Chloride Urine Total Protein Vancomycin Trough Crossmatch 11/20/16 11/20/16 11/20/16 05:00 05:44 11:33 WBC RBC Hgb Hct MCV RDW Plt Count Lymph % (Auto) [place] % (Auto) [place] # Seg Neutrophils % Seg Neuts % (Manual) Lymphocytes % (Manual) Monocytes % (Manual) Basophils % (Manual) Nucleated RBC % Seg Neutrophils # Seg Neutrophils # Man Lymphocytes # (Manual) Monocytes # (Manual) Eosinophils # (Manual) Basophils # (Manual) PT INR APTT Heparin Anti-Xa Level POC ABG pH POC ABG pCO2 POC ABG pO2 Sodium Potassium 3.4 L Chloride 107.4 H Carbon Dioxide 20 L BUN Creatinine Glucose 140 H POC Glucose 163 H 108 H Calcium 7.2 L Phosphorus Magnesium AST Alkaline Phosphatase C-Reactive Protein Total Protein Albumin Lipase Vitamin B12 TSH Urine WBC (Auto) Urine Chloride Urine Total Protein Vancomycin Trough Crossmatch 11/20/16 11/20/16 11/20/16 13:03 16:45 23:26 WBC RBC Hgb Hct MCV RDW Plt Count Lymph % (Auto) [place] % (Auto) [place] # Seg Neutrophils % Seg Neuts % (Manual) Lymphocytes % (Manual) Monocytes % (Manual) Basophils % (Manual) Nucleated RBC % Seg Neutrophils # Seg Neutrophils # Man Lymphocytes # (Manual) Monocytes # (Manual) Eosinophils # (Manual) Basophils # (Manual) PT INR APTT Heparin Anti-Xa Level POC ABG pH POC ABG pCO2 POC ABG pO2 Sodium Potassium Chloride Carbon Dioxide BUN Creatinine Glucose POC Glucose 113 H 168 H Calcium Phosphorus Magnesium AST Alkaline Phosphatase C-Reactive Protein Total Protein Albumin Lipase Vitamin B12 TSH Urine WBC (Auto) Urine Chloride Urine Total Protein Vancomycin Trough 45.8 H Crossmatch 11/21/16 11/21/16 11/21/16 05:00 05:27 09:50 WBC RBC Hgb Hct MCV RDW Plt Count Lymph % (Auto) [place] % (Auto) [place] # Seg Neutrophils % Seg Neuts % (Manual) Lymphocytes % (Manual) Monocytes % (Manual) Basophils % (Manual) Nucleated RBC % Seg Neutrophils # Seg Neutrophils # Man Lymphocytes # (Manual) Monocytes # (Manual) Eosinophils # (Manual) Basophils # (Manual) PT INR APTT Heparin Anti-Xa Level POC ABG pH POC ABG pCO2 POC ABG pO2 Sodium 133 L D Potassium Chloride Carbon Dioxide 19 L BUN Creatinine Glucose 280 H POC Glucose 222 H Calcium 7.4 L Phosphorus Magnesium AST Alkaline Phosphatase C-Reactive Protein Total Protein Albumin Lipase Vitamin B12 TSH Urine WBC (Auto) Urine Chloride Urine Total Protein Vancomycin Trough 30.4 H Crossmatch 11/21/16 11/21/16 11/21/16 12:36 17:17 18:34 WBC RBC Hgb Hct MCV RDW Plt Count Lymph % (Auto) [place] % (Auto) [place] # Seg Neutrophils % Seg Neuts % (Manual) Lymphocytes % (Manual) Monocytes % (Manual) Basophils % (Manual) Nucleated RBC % Seg Neutrophils # Seg Neutrophils # Man Lymphocytes # (Manual) Monocytes # (Manual) Eosinophils # (Manual) Basophils # (Manual) PT INR APTT Heparin Anti-Xa Level POC ABG pH POC ABG pCO2 POC ABG pO2 Sodium Potassium Chloride Carbon Dioxide BUN Creatinine Glucose POC Glucose 306 H 339 H 318 H Calcium Phosphorus Magnesium AST Alkaline Phosphatase C-Reactive Protein Total Protein Albumin Lipase Vitamin B12 TSH Urine WBC (Auto) Urine Chloride Urine Total Protein Vancomycin Trough Crossmatch 11/21/16 11/22/16 11/22/16 23:16 07:19 11:49 WBC 11.1 H RBC 2.60 L Hgb 7.8 L Hct 24.4 L MCV RDW 16.3 H Plt Count Lymph % (Auto) [place] % (Auto) [place] # Seg Neutrophils % 76.8 H Seg Neuts % (Manual) Lymphocytes % (Manual) Monocytes % (Manual) Basophils % (Manual) Nucleated RBC % Seg Neutrophils # 8.5 H Seg Neutrophils # Man Lymphocytes # (Manual) Monocytes # (Manual) Eosinophils # (Manual) Basophils # (Manual) PT INR APTT Heparin Anti-Xa Level POC ABG pH POC ABG pCO2 POC ABG pO2 Sodium Potassium Chloride Carbon Dioxide BUN Creatinine Glucose POC Glucose 286 H 371 H Calcium Phosphorus Magnesium AST Alkaline Phosphatase C-Reactive Protein Total Protein Albumin Lipase Vitamin B12 TSH Urine WBC (Auto) Urine Chloride Urine Total Protein Vancomycin Trough Crossmatch 11/22/16 11/22/16 11/22/16 11:50 11:50 17:34 WBC RBC Hgb Hct MCV RDW Plt Count Lymph % (Auto) [place] % (Auto) [place] # Seg Neutrophils % Seg Neuts % (Manual) Lymphocytes % (Manual) Monocytes % (Manual) Basophils % (Manual) Nucleated RBC % Seg Neutrophils # Seg Neutrophils # Man Lymphocytes # (Manual) Monocytes # (Manual) Eosinophils # (Manual) Basophils # (Manual) PT INR APTT Heparin Anti-Xa Level POC ABG pH POC ABG pCO2 POC ABG pO2 Sodium 130 L Potassium Chloride Carbon Dioxide 19 L BUN 20 H Creatinine Glucose 266 H POC Glucose 262 H 284 H Calcium 7.2 L Phosphorus Magnesium AST Alkaline Phosphatase C-Reactive Protein Total Protein Albumin Lipase Vitamin B12 TSH Urine WBC (Auto) Urine Chloride Urine Total Protein Vancomycin Trough Crossmatch 11/22/16 11/22/16 11/22/16 17:43 20:04 23:38 WBC RBC Hgb Hct MCV RDW Plt Count Lymph % (Auto) [place] % (Auto) [place] # Seg Neutrophils % Seg Neuts % (Manual) Lymphocytes % (Manual) Monocytes % (Manual) Basophils % (Manual) Nucleated RBC % Seg Neutrophils # Seg Neutrophils # Man Lymphocytes # (Manual) Monocytes # (Manual) Eosinophils # (Manual) Basophils # (Manual) PT INR APTT Heparin Anti-Xa Level POC ABG pH 7.492 H POC ABG pCO2 23.2 L POC ABG pO2 60 L Sodium Potassium Chloride Carbon Dioxide BUN Creatinine Glucose POC Glucose 261 H 253 H Calcium Phosphorus Magnesium AST Alkaline Phosphatase C-Reactive Protein Total Protein Albumin Lipase Vitamin B12 TSH Urine WBC (Auto) Urine Chloride Urine Total Protein Vancomycin Trough Crossmatch 11/23/16 11/23/16 11/23/16 06:27 08:20 11:54 WBC RBC Hgb 8.2 L Hct 24.9 L MCV RDW Plt Count Lymph % (Auto) [place] % (Auto) [place] # Seg Neutrophils % Seg Neuts % (Manual) Lymphocytes % (Manual) Monocytes % (Manual) Basophils % (Manual) Nucleated RBC % Seg Neutrophils # Seg Neutrophils # Man Lymphocytes # (Manual) Monocytes # (Manual) Eosinophils # (Manual) Basophils # (Manual) PT INR APTT Heparin Anti-Xa Level POC ABG pH POC ABG pCO2 POC ABG pO2 Sodium Potassium Chloride Carbon Dioxide BUN Creatinine Glucose POC Glucose 333 H 286 H Calcium Phosphorus Magnesium AST Alkaline Phosphatase C-Reactive Protein Total Protein Albumin Lipase Vitamin B12 TSH Urine WBC (Auto) Urine Chloride Urine Total Protein Vancomycin Trough Crossmatch 11/23/16 11/23/16 11/24/16 17:53 23:51 00:12 WBC RBC Hgb Hct MCV RDW Plt Count Lymph % (Auto) [place] % (Auto) [place] # Seg Neutrophils % Seg Neuts % (Manual) Lymphocytes % (Manual) Monocytes % (Manual) Basophils % (Manual) Nucleated RBC % Seg Neutrophils # Seg Neutrophils # Man Lymphocytes # (Manual) Monocytes # (Manual) Eosinophils # (Manual) Basophils # (Manual) PT INR APTT Heparin Anti-Xa Level POC ABG pH POC ABG pCO2 POC ABG pO2 Sodium Potassium Chloride Carbon Dioxide BUN Creatinine Glucose POC Glucose 195 H 214 H 223 H Calcium Phosphorus Magnesium AST Alkaline Phosphatase C-Reactive Protein Total Protein Albumin Lipase Vitamin B12 TSH Urine WBC (Auto) Urine Chloride Urine Total Protein Vancomycin Trough Crossmatch 11/24/16 11/24/16 11/24/16 04:50 04:50 06:08 WBC RBC 2.74 L Hgb 8.4 L Hct 26.1 L MCV RDW 16.0 H Plt Count Lymph % (Auto) [place] % (Auto) [place] # Seg Neutrophils % Seg Neuts % (Manual) Lymphocytes % (Manual) Monocytes % (Manual) Basophils % (Manual) Nucleated RBC % Seg Neutrophils # Seg Neutrophils # Man Lymphocytes # (Manual) Monocytes # (Manual) Eosinophils # (Manual) Basophils # (Manual) PT INR APTT Heparin Anti-Xa Level POC ABG pH POC ABG pCO2 POC ABG pO2 Sodium 133 L Potassium Chloride Carbon Dioxide 19 L BUN 23 H Creatinine Glucose 200 H POC Glucose 187 H Calcium 7.2 L Phosphorus Magnesium AST Alkaline Phosphatase C-Reactive Protein Total Protein Albumin Lipase Vitamin B12 TSH Urine WBC (Auto) Urine Chloride Urine Total Protein Vancomycin Trough Crossmatch 11/24/16 11/24/16 11/24/16 12:02 17:43 23:35 WBC RBC Hgb Hct MCV RDW Plt Count Lymph % (Auto) [place] % (Auto) [place] # Seg Neutrophils % Seg Neuts % (Manual) Lymphocytes % (Manual) Monocytes % (Manual) Basophils % (Manual) Nucleated RBC % Seg Neutrophils # Seg Neutrophils # Man Lymphocytes # (Manual) Monocytes # (Manual) Eosinophils # (Manual) Basophils # (Manual) PT INR APTT Heparin Anti-Xa Level POC ABG pH POC ABG pCO2 POC ABG pO2 Sodium Potassium Chloride Carbon Dioxide BUN Creatinine Glucose POC Glucose 250 H 226 H 230 H Calcium Phosphorus Magnesium AST Alkaline Phosphatase C-Reactive Protein Total Protein Albumin Lipase Vitamin B12 TSH Urine WBC (Auto) Urine Chloride Urine Total Protein Vancomycin Trough Crossmatch 11/25/16 11/25/16 11/25/16 05:47 11:37 18:00 WBC RBC Hgb Hct MCV RDW Plt Count Lymph % (Auto) [place] % (Auto) [place] # Seg Neutrophils % Seg Neuts % (Manual) Lymphocytes % (Manual) Monocytes % (Manual) Basophils % (Manual) Nucleated RBC % Seg Neutrophils # Seg Neutrophils # Man Lymphocytes # (Manual) Monocytes # (Manual) Eosinophils # (Manual) Basophils # (Manual) PT INR APTT Heparin Anti-Xa Level POC ABG pH POC ABG pCO2 POC ABG pO2 Sodium Potassium Chloride Carbon Dioxide BUN Creatinine Glucose POC Glucose 229 H 226 H 226 H Calcium Phosphorus Magnesium AST Alkaline Phosphatase C-Reactive Protein Total Protein Albumin Lipase Vitamin B12 TSH Urine WBC (Auto) Urine Chloride Urine Total Protein Vancomycin Trough Crossmatch 11/26/16 11/26/16 11/26/16 05:43 12:05 17:05 WBC RBC Hgb Hct MCV RDW Plt Count Lymph % (Auto) [place] % (Auto) [place] # Seg Neutrophils % Seg Neuts % (Manual) Lymphocytes % (Manual) Monocytes % (Manual) Basophils % (Manual) Nucleated RBC % Seg Neutrophils # Seg Neutrophils # Man Lymphocytes # (Manual) Monocytes # (Manual) Eosinophils # (Manual) Basophils # (Manual) PT INR APTT Heparin Anti-Xa Level POC ABG pH POC ABG pCO2 POC ABG pO2 Sodium Potassium Chloride Carbon Dioxide BUN Creatinine Glucose POC Glucose 262 H 260 H 193 H Calcium Phosphorus Magnesium AST Alkaline Phosphatase C-Reactive Protein Total Protein Albumin Lipase Vitamin B12 TSH Urine WBC (Auto) Urine Chloride Urine Total Protein Vancomycin Trough Crossmatch 11/26/16 11/27/16 23:46 05:49 WBC RBC Hgb Hct MCV RDW Plt Count Lymph % (Auto) [place] % (Auto) [place] # Seg Neutrophils % Seg Neuts % (Manual) Lymphocytes % (Manual) Monocytes % (Manual) Basophils % (Manual) Nucleated RBC % Seg Neutrophils # Seg Neutrophils # Man Lymphocytes # (Manual) Monocytes # (Manual) Eosinophils # (Manual) Basophils # (Manual) PT INR APTT Heparin Anti-Xa Level POC ABG pH POC ABG pCO2 POC ABG pO2 Sodium Potassium Chloride Carbon Dioxide BUN Creatinine Glucose POC Glucose 183 H 182 H Calcium Phosphorus Magnesium AST Alkaline Phosphatase C-Reactive Protein Total Protein Albumin Lipase Vitamin B12 TSH Urine WBC (Auto) Urine Chloride Urine Total Protein Vancomycin Trough Crossmatch Allied health notes reviewed: RT
[2016-11-27] MEDS: COUMADIN PO SCH (16:38)
[2016-11-27] MEDS: NORMODYNE IV PRN (16:59)
[2016-11-27] MEDS ORDERED: TRIDIL DRIP 50MG/250ML 50 MG/250 ML BOTTLE ONE (17:50)
[2016-11-27 17:58] LABS: ISTAT Base Excess -6; ISTAT HCO3 20.1; ISTAT PCO2 38.1 (35-45); ISTAT PH 7.331 (7.35-7.45); ISTAT PO2 46 (80-105); ISTAT SO2 79; ISTAT TCO2 21
[2016-11-27] MEDS ORDERED: TRIDIL DRIP 50MG/250ML 50 MG/250 ML BOTTLE IV SCH (18:00)
--- NOTE | 2016-11-27 19:07 | XRay Report ---
FINAL REPORT EXAM: XR CHEST 1V AP HISTORY: resp distress TECHNIQUE: AP portable view of the chest. PRIORS: 11/25/2016 FINDINGS: There is a tracheostomy tube in place which appears adequately positioned. There is been interval removal of a right arm PICC line. The cardiomediastinal silhouette appears normal. There are diffuse bilateral airspace infiltrates increased from the prior exam. The bones and soft tissues are unremarkable. IMPRESSION: Increased bilateral airspace infiltrates may be due to pulmonary edema or pneumonia.
[2016-11-28] MEDS: FLAGYL 500 MG/100 ML 500 MG/100 ML BAG IV SCH ×3 (01:48→17:55)
[2016-11-28 06:18] LABS: Hematocrit 27.7 % (30.3-42.9); Hemoglobin 8.9 gm/dl (10.1-14.3); Mean Corpuscular HGB Conc 32 % (30-34); Mean Corpuscular Hemoglobin 31 pg (28-32); Mean Corpuscular Volume 96 fl (79-97); Platelet Count 391 K/mm3 (140-440); Red Blood Count 2.88 M/mm3 (3.65-5.03); Red Cell Distribution Width 17.2 % (13.2-15.2); White Blood Count 10.5 K/mm3 (4.5-11.0)
[2016-11-28 06:25] LABS: INR 1.2 (0.87-1.13)
[2016-11-28] MEDS: DILANTIN IV SCH ×3 (06:26→21:59)
[2016-11-28 06:29] LABS: Anion Gap 19 mmol/L; BUN/Creatinine Ratio 33.75; Blood Urea Nitrogen 27 mg/dL (7-17); Calcium 8.1 mg/dL (8.4-10.2); Carbon Dioxide 21 mmol/L (22-30); Chloride 105.4 mmol/L (98-107); Glucose 237 mg/dL (65-100); Potassium 4.2 mmol/L (3.6-5.0); Sodium 141 mmol/L (137-145)
--- NOTE | 2016-11-28 08:19 | Vascular Lab Report ---
RIGHT UPPER EXTREMITY VENOUS DUPLEX: REASON FOR EXAM: Right arm swelling COMMENTS ON THE RIGHT: Deep venous thrombosis noted in the brachial vein extending into the axillary vein. The remaining veins visualized are freely compressible without evidence of internal echogenicity. Spontaneous and phasic flow is present proximally. COMMENTS ON THE LEFT: The subclavian and internal jugular veins are free of thrombus. IMPRESSION: Deep venous thrombosis in the right upper extremity
[2016-11-28] MEDS: LOPRESSOR PO SCH ×3 (09:00→21:59)
[2016-11-28] MEDS: PEPCID PO SCH ×2 (11:00→22:00)
[2016-11-28] MEDS: LEVEMIR SUB-Q SCH (11:00)
[2016-11-28] MEDS: PLAVIX PO SCH (11:00)
[2016-11-28] MEDS: LOVENOX SUB-Q SCH ×2 (11:00→21:59)
[2016-11-28] MEDS ORDERED: LEVEMIR SUB-Q SCH (12:00)
[2016-11-28] MEDS: ZESTRIL PO SCH (12:17)
--- NOTE | 2016-11-28 14:04 | Progress Note ---
Assessment and Plan Assessment and plan: Patient is a 66-year-old woman who presented with lethargy and altered mental status with possible anoxic injury unknown duration of how long she was down for she deteriorated and was intubated in emergency room, she was managed for DKA and she also developed sepsis due to UTI and right lower extremity ischemia- > Cold right foot which I discovered on Rounds on 10/17/16 and I asked the nurse for the bedside doppler which showed no pulse, My exam on the morning of morning has changed, she had a pulse right foot. Arterial duplex revealed a proximal right superficial femoral artery occlusion. I consulted and discussed with Vascular surgery, Dr. Eller ==>Acute ischemic right foot. 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 Remained very difficult to wean from the vent. Although eventually was tolerating pressure support. She subsequently went into cardiac arrest was resuscitated but this time was not able to recover back to following commands as previous before second cardiac arrest. Heparin was discontinued due to CPR. Vascular did not feel at this time that for reactivation of the right lower extremity was needed. Imaging studies were consented for anoxic encephalopathy and cortical irritability although no diagnosis of brain was noted. Dr. Mcclure discussed with family extensively and has informed them about real possibility of not having any meaningful neurological recovery. They agreed with transfer to a skilled facility with vent Ability. Case management is working and is meantime we'll continue current therapy and management. -S/P cardiopulomary arrest x 2 -A/C respiratory failure with hypercapnea -Seizure-Per family prior hx -DM, s/p DKA -Hyponatremia -Acute limb ischemia of right lower ext due to SFA thrombosis- s/p right BKA -LUCY/CKD 3 likely vasomotor nephropathy-resolved -Sepsis, Strept Group B tracheobronchitis, poa- Multifactorial -Anemia of chronic disease -Hematuria -Metabolic acidosis -Severe Hypokalemia-RESOLVED -Pancreatitis, acute, poa -Vaginal candidiasis -Hypernatremia -MSOF, poa Plan: * s/p EEG - findings consistent with anoxic encephalopathy and cortical irritability * Neurology notes intact brain stem * PSV as tolerated * Family updated about the very real possibility of not having any meaningful neurological recovery. all questions answered. Family meeting with daughter, and grandchild with greatgrand child in attendance. Case mangement and director social service and bedside nurse were also present. * Poor prognosis. * Plan for transfer to residential acute care facility pending * MRI brain with no gross abnormality * adjust insulin therapy * Neurologic input noted. EEG abnormal. * Heparin had to be held due to the risk associated considering recent CPR with chest compressions. * vascular following up on right BKA remains poor prognosis and likely will need a conversion to AKA. * Continue subcutaneous insulin and electrolyte replacement * Continue Cardizem and beta juan antonio * Monitor electrolytes and hemoglobin. * continue dilantin * DVT and GI prophylaxis New issue: ACUTE DVT IN THE RT.AXILLARY VEIN EXTENDING TO THE RT.BRACHIAL VEIN.RN INFORMED. Treat with therapeutic anticoagulation new issue: lungs more congested. Poor prognosis History Interval history: Patient seen and examined. Follow up on respiratory failure, still intubated. Overnight uneventful. Imaging, old records, testing, labs, nursing notes reviewed. Hospitalist Physical - Physical exam Narrative exam: GEN: Intubated CVS: RRR, NORMAL S1S2 LUNGS/CHEST: Tachypnea NORMAL CHEST EXPANSION B, GOOD AIR ENTRY B ABD: SOFT +peg, GBS, NO REBOUND OR GUARDING NEURO: CN 2-12 GROSSLY INTACT, doesn't follow commands, eyes wondering PSY: Anxious New issue: right bka, tracheostomy and peg present - Constitutional Vitals: Temp Pulse Resp BP Pulse Ox 98.8 F 98 H 28 H 158/62 100 11/28/16 08:00 11/28/16 12:17 11/28/16 06:00 11/28/16 12:17 11/28/16 12:17 General appearance: Present: no acute distress Results - Labs CBC & Chem 7: 11/28/16 05:46 11/28/16 05:46 Labs: Laboratory Last Values WBC 10.5 K/mm3 (4.5-11.0) 11/28/16 05:46 RBC 2.88 M/mm3 (3.65-5.03) L 11/28/16 05:46 Hgb 8.9 gm/dl (10.1-14.3) L 11/28/16 05:46 Hct 27.7 % (30.3-42.9) L 11/28/16 05:46 MCV 96 fl (79-97) 11/28/16 05:46 MCH 31 pg (28-32) 11/28/16 05:46 MCHC 32 % (30-34) 11/28/16 05:46 RDW 17.2 % (13.2-15.2) H 11/28/16 05:46 Plt Count 391 K/mm3 (140-440) 11/28/16 05:46 Lymph % (Auto) 14.8 % (13.4-35.0) 11/22/16 11:49 [place] % (Auto) 6.7 % (0.0-7.3) 11/22/16 11:49 Eos % (Auto) 1.1 % (0.0-4.3) 11/22/16 11:49 Baso % (Auto) 0.6 % (0.0-1.8) 11/22/16 11:49 Lymph # 1.6 K/mm3 (1.2-5.4) 11/22/16 11:49 [place] # 0.7 K/mm3 (0.0-0.8) 11/22/16 11:49 Eos # 0.1 K/mm3 (0.0-0.4) 11/22/16 11:49 Baso # 0.1 K/mm3 (0.0-0.1) 11/22/16 11:49 Add Manual Diff Complete 11/18/16 13:00 Total Counted 100 11/18/16 13:00 Seg Neutrophils % 76.8 % (40.0-70.0) H 11/22/16 11:49 Seg Neuts % (Manual) 90.0 % (40.0-70.0) H 11/18/16 13:00 Band Neutrophils % 0 % 11/18/16 13:00 Lymphocytes % (Manual) 8.0 % (13.4-35.0) L 11/18/16 13:00 Reactive Lymphs % (Man) 0 % 11/18/16 13:00 Monocytes % (Manual) 2.0 % (0.0-7.3) 11/18/16 13:00 Eosinophils % (Manual) 0 % (0.0-4.3) 11/18/16 13:00 Basophils % (Manual) 0 % (0.0-1.8) 11/18/16 13:00 Metamyelocytes % 0 % 11/18/16 13:00 Myelocytes % 0 % 11/18/16 13:00 Promyelocytes % 0 % 11/18/16 13:00 Blast Cells % 0 % 11/18/16 13:00 Nucleated RBC % Not Reportable 11/18/16 13:00 Seg Neutrophils # 8.5 K/mm3 (1.8-7.7) H 11/22/16 11:49 Seg Neutrophils # Man 11.3 K/mm3 (1.8-7.7) H 11/18/16 13:00 Band Neutrophils # 0.0 K/mm3 11/18/16 13:00 Lymphocytes # (Manual) 1.0 K/mm3 (1.2-5.4) L 11/18/16 13:00 Abs React Lymphs (Man) 0.0 K/mm3 11/18/16 13:00 Monocytes # (Manual) 0.3 K/mm3 (0.0-0.8) 11/18/16 13:00 Eosinophils # (Manual) 0.0 K/mm3 (0.0-0.4) 11/18/16 13:00 Basophils # (Manual) 0.0 K/mm3 (0.0-0.1) 11/18/16 13:00 Metamyelocytes # 0.0 K/mm3 11/18/16 13:00 Myelocytes # 0.0 K/mm3 11/18/16 13:00 Promyelocytes # 0.0 K/mm3 11/18/16 13:00 Blast Cells # 0.0 K/mm3 11/18/16 13:00 Pathologist Review 10/29/16 09:30 WBC Morphology Not Reportable 11/18/16 13:00 Hypersegmented Neuts Not Reportable 11/18/16 13:00 Hyposegmented Neuts Not Reportable 11/18/16 13:00 Hypogranular Neuts Not Reportable 11/18/16 13:00 Hypersegmented Polys TNR 10/17/16 07:08 Smudge Cells Not Reportable 11/18/16 13:00 Toxic Granulation Not Reportable 11/18/16 13:00 Toxic Vacuolation Not Reportable 11/18/16 13:00 Dohle Bodies Not Reportable 11/18/16 13:00 Pelger-Huet Anomaly Not Reportable 11/18/16 13:00 Alka Rods Not Reportable 11/18/16 13:00 Platelet Estimate Consistent w auto 11/18/16 13:00 Clumped Platelets Not Reportable 11/18/16 13:00 Plt Clumps, EDTA Not Reportable 11/18/16 13:00 Large Platelets Not Reportable 11/18/16 13:00 Giant Platelets Not Reportable 11/18/16 13:00 Platelet Satelliting Not Reportable 11/18/16 13:00 Plt Morphology Comment Not Reportable 11/18/16 13:00 RBC Morphology Not Reportable 11/18/16 13:00 Dimorphic RBCs Not Reportable 11/18/16 13:00 Polychromasia Not Reportable 11/18/16 13:00 Hypochromasia Not Reportable 11/18/16 13:00 Poikilocytosis Not Reportable 11/18/16 13:00 Basophilic Stippling TNR 10/17/16 07:08 Anisocytosis 1+ 11/18/16 13:00 Microcytosis Not Reportable 11/18/16 13:00 Macrocytosis Not Reportable 11/18/16 13:00 Spherocytes Not Reportable 11/18/16 13:00 Pappenheimer Bodies Not Reportable 11/18/16 13:00 Sickle Cells Not Reportable 11/18/16 13:00 Target Cells Not Reportable 11/18/16 13:00 Tear Drop Cells Not Reportable 11/18/16 13:00 Ovalocytes Not Reportable 11/18/16 13:00 Stomatocytes Few 11/03/16 00:05 Helmet Cells Not Reportable 11/18/16 13:00 [place] Bodies Not Reportable 11/18/16 13:00 Magnet Rings Not Reportable 11/18/16 13:00 Jeannette Cells Not Reportable 11/18/16 13:00 Bite Cells Not Reportable 11/18/16 13:00 Crenated Cell Not Reportable 11/18/16 13:00 Elliptocytes Not Reportable 11/18/16 13:00 Acanthocytes (Spur) Not Reportable 11/18/16 13:00 Rouleaux Not Reportable 11/18/16 13:00 Hemoglobin C Crystals Not Reportable 11/18/16 13:00 Schistocytes Not Reportable 11/18/16 13:00 Malaria parasites Not Reportable 11/18/16 13:00 David Bodies Not Reportable 11/18/16 13:00 Hem Pathologist Commnt No 11/18/16 13:00 PT 15.1 Sec. (12.2-14.9) H 11/28/16 05:46 INR 1.20 (0.87-1.13) H 11/28/16 05:46 APTT 131.1 Sec. (24.2-36.6) H* 11/18/16 05:45 Heparin Anti-Xa Level 0.51 U.I./ml (0.3-0.7) 11/18/16 11:16 POC ABG pH 7.331 (7.35-7.45) L 11/27/16 17:45 POC ABG pCO2 38.1 (35-45) 11/27/16 17:45 POC ABG pO2 46 (80-105) L 11/27/16 17:45 POC ABG HCO3 20.1 11/27/16 17:45 POC ABG Total CO2 21 11/27/16 17:45 POC ABG O2 Sat 79 11/27/16 17:45 POC ABG Base Excess -6 11/27/16 17:45 VBG pH 7.020 (7.320-7.420) L* 10/13/16 04:22 FiO2 40 % 11/27/16 17:45 Sodium 141 mmol/L (137-145) D 11/28/16 05:46 Potassium 4.2 mmol/L (3.6-5.0) 11/28/16 05:46 Chloride 105.4 mmol/L (98-107) 11/28/16 05:46 Carbon Dioxide 21 mmol/L (22-30) L 11/28/16 05:46 Anion Gap 19 mmol/L 11/28/16 05:46 BUN 27 mg/dL (7-17) H 11/28/16 05:46 Creatinine 0.8 mg/dL (0.7-1.2) 11/28/16 05:46 Estimated GFR > 60 ml/min 11/28/16 05:46 BUN/Creatinine Ratio 33.75 % 11/28/16 05:46 Glucose 237 mg/dL (65-100) H 11/28/16 05:46 POC Glucose 277 (70-105) H 11/28/16 11:20 Osmolality 332 Mosm/kg 10/14/16 07:03 Lactic Acid 1.8 mmol/L (0.7-2.0) 10/14/16 07:03 Calcium 8.1 mg/dL (8.4-10.2) L 11/28/16 05:46 Phosphorus 2.7 mg/dL (2.5-4.5) D 10/21/16 Unknown Magnesium 2.0 mg/dL (1.7-2.3) 11/20/16 05:00 Total Bilirubin 0.2 mg/dL (0.1-1.2) 11/19/16 04:30 AST 9 units/L (5-40) 11/19/16 04:30 ALT 7 units/L (7-56) 11/19/16 04:30 Alkaline Phosphatase 82 units/L (35-129) 11/19/16 04:30 Ammonia 35.0 umol/L (25-60) 10/13/16 05:40 Total Creatine Kinase 107 units/L (30-135) 10/13/16 04:22 CK-MB (CK-2) 3.1 ng/mL (0.0-4.0) 10/13/16 04:22 CK-MB (CK-2) Rel Index 2.8 (0-4) 10/13/16 04:22 Troponin T 0.090 ng/mL (0.00-0.029) H 11/28/16 05:46 C-Reactive Protein 10.50 mg/dL (0.00-1.30) H 10/13/16 16:14 Total Protein 5.5 g/dL (6.3-8.2) L 11/19/16 04:30 Albumin 2.1 g/dL (3.9-5) L 11/19/16 04:30 Albumin/Globulin Ratio 0.6 % 11/19/16 04:30 Triglycerides 154 mg/dL (2-149) H 11/28/16 05:46 Cholesterol 128 mg/dL (50-199) 11/28/16 05:46 LDL Cholesterol Direct 60 mg/dL (50-130) 11/28/16 05:46 HDL Cholesterol 38 mg/dL (40-59) L 11/28/16 05:46 Cholesterol/HDL Ratio 3.36 % 11/28/16 05:46 Amylase 30 units/L (27-131) 11/10/16 04:30 Lipase 41 units/L (13-60) 11/10/16 04:30 Vitamin B12 976.8 pg/mL (211-911) H 10/22/16 10:25 TSH 0.162 mlU/mL (0.270-4.200) L 10/22/16 14:50 Free T4 0.77 ng/dL (0.76-1.46) 10/22/16 14:50 Urine Color Yellow (Yellow) 11/14/16 19:39 Urine Turbidity Cloudy (Clear) 11/14/16 19:39 Urine pH 6.0 (5.0-7.0) 11/14/16 19:39 Ur Specific [place] 1.010 (1.003-1.030) 11/14/16 19:39 Urine Protein 30 mg/dl mg/dL (Negative) 11/14/16 19:39 Urine Glucose (UA) 50 mg/dL (Negative) 11/14/16 19:39 Urine Ketones 20 mg/dL (Negative) 11/14/16 19:39 Urine Blood Lg (Negative) 11/14/16 19:39 Urine Nitrite Neg (Negative) 11/14/16 19:39 Urine Bilirubin Neg (Negative) 11/14/16 19:39 Urine Urobilinogen < 2.0 mg/dL (<2.0) 11/14/16 19:39 Ur Leukocyte Esterase Sm (Negative) 11/14/16 19:39 Urine WBC (Auto) 3.0 /HPF (0.0-6.0) 11/14/16 19:39 Urine RBC (Auto) > 182.0 /HPF (0.0-6.0) 11/14/16 19:39 U Epithel Cells (Auto) 1.0 /HPF (0-13.0) 10/15/16 11:05 Urine Bacteria (Auto) 1+ /HPF (Negative) 11/14/16 19:39 Urine Mucus Few /HPF 11/14/16 19:39 Urine Yeast (Budding) 2+ /HPF 10/15/16 11:05 Urine Osmolality 487 Mosm/kg 10/13/16 Unknown Urine Creatinine < 4.2 mg/dL (0.1-20.0) 10/13/16 Unknown Protein/Creatinin Ratio 0.00 10/13/16 Unknown Urine Sodium 10 mEq/L 10/13/16 Unknown Urine Potassium 1.00 mEq/L 10/13/16 Unknown Urine Chloride 10.0 mEq/L (110-250) L 10/13/16 Unknown Urine Total Protein < 4 mg/dL (5-11.8) L 10/13/16 Unknown Vancomycin Trough 30.4 ug/mL (5.0-20.0) H 11/21/16 09:50 Random Vancomycin 20.8 ug/mL (0-40.0) 11/23/16 04:00 Ketones 107.3 mg/dL (0.2-2.8) H 10/13/16 04:22 Blood Type A POSITIVE 11/03/16 18:01 Antibody Screen Negative 11/03/16 18:01 Crossmatch See Detail 11/03/16 18:01
[2016-11-28] MEDS: COUMADIN PO SCH (16:39)
--- NOTE | 2016-11-28 19:50 | Progress Note ---
Assessment and Plan - Patient Problems (1) Acute respiratory failure with hypercapnia Current Visit: Yes Status: Acute Plan to address problem: Continue with mechanical ventilatory support. Weaning/Spontaneous breathing trials as tolerated VAP bundle Critical bundles addressed Agitation management HOB >40, aspiration precautions VTE/Stress ulcer prophylaxis SAT/SBT Glycemic control (2) Hypertensive urgency, malignant Current Visit: Yes Status: Acute Plan to address problem: Blood pressure control much better. Will discontinue nitro infusion. Increase metoprolol dose while monitoring blood pressure control. Add lisinopril and monitor renal indices. (3) DKA (diabetic ketoacidoses) Current Visit: Yes Status: Acute Qualifiers: Diabetes mellitus type: D Diabetes mellitus complication detail: D Plan to address problem: Continue with accucheck and glycemic control. Glycemic control in the last 48 hours have been sub-optimal. Adjusted insulin therapy. Monitor closely. (4) Altered mental status Current Visit: Yes Status: Acute Qualifiers: Altered mental status type: A Coma depth: C Coma timing: C Plan to address problem: Toxic, metabolic, anoxia. Continue to monitor (5) Acidosis Current Visit: Yes Status: Acute Plan to address problem: Improving (6) Acute on chronic renal failure Current Visit: Yes Status: Acute Plan to address problem: Monitor renal function and electrolytes. 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 Monitor for bleeding. Will need anticoagulation for 3 months (10) Discharge planning issues Current Visit: Yes Status: Acute Plan to address problem: Discussed discharge care plan with the case management in the critical care unit. updated at the bedside. 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 Vitals, labs, medications, chart reviewed On-going encephalopathy and agitation s/p tracheostomy Right UExt DVT at the bedside. Events yesterday noted- hypertensive urgency with acute desaturations. Needed to start nitroglycerine infusion for blood pressure control. Required diuretics and spontaneous breathing trials were stopped. She was placed back on full mechanical ventilatory support. This morning, she is on minimal doses of nitroglycerine. No acute overnight events reported Objective Vital Signs - 12hr 11/28/16 11/28/16 11/28/16 08:00 08:30 09:00 Temperature 98.8 F Pulse Rate 92 H 84 89 Pulse Rate [ 90 From Monitor] Respiratory 23 14 29 H Rate Blood Pressure 132/59 115/50 132/61 O2 Sat by Pulse 99 97 98 Oximetry O2 Sat by Pulse Oximetry [ Assessment] 11/28/16 11/28/16 11/28/16 09:30 09:32 10:00 Temperature Pulse Rate 90 86 89 Pulse Rate [ From Monitor] Respiratory 35 H 26 H Rate Blood Pressure 138/66 126/57 134/60 O2 Sat by Pulse 100 100 100 Oximetry O2 Sat by Pulse Oximetry [ Assessment] 11/28/16 11/28/16 11/28/16 10:30 11:00 11:30 Temperature Pulse Rate 92 H 92 H 99 H Pulse Rate [ From Monitor] Respiratory 33 H 35 H 29 H Rate Blood Pressure 135/60 135/61 152/71 O2 Sat by Pulse 100 100 99 Oximetry O2 Sat by Pulse Oximetry [ Assessment] 11/28/16 11/28/16 11/28/16 12:00 12:17 12:30 Temperature 98.6 F Pulse Rate 112 H 98 H 86 Pulse Rate [ From Monitor] Respiratory 38 H 32 H Rate Blood Pressure 152/98 158/62 134/66 O2 Sat by Pulse 99 100 96 Oximetry O2 Sat by Pulse Oximetry [ Assessment] 11/28/16 11/28/16 11/28/16 13:00 13:30 14:00 Temperature Pulse Rate 74 74 75 Pulse Rate [ From Monitor] Respiratory 29 H 32 H 30 H Rate Blood Pressure 129/61 132/67 137/66 O2 Sat by Pulse 97 99 99 Oximetry O2 Sat by Pulse Oximetry [ Assessment] 11/28/16 11/28/16 11/28/16 14:30 15:00 15:30 Temperature Pulse Rate 79 80 79 Pulse Rate [ From Monitor] Respiratory 35 H 22 30 H Rate Blood Pressure 150/70 139/64 146/67 O2 Sat by Pulse 100 100 100 Oximetry O2 Sat by Pulse Oximetry [ Assessment] 11/28/16 11/28/16 11/28/16 16:00 16:30 16:50 Temperature 98.6 F Pulse Rate 77 81 Pulse Rate [ From Monitor] Respiratory 32 H 36 H Rate Blood Pressure 139/66 144/67 O2 Sat by Pulse 99 100 Oximetry O2 Sat by Pulse 100 Oximetry [ Assessment] 11/28/16 11/28/16 11/28/16 16:53 17:00 17:30 Temperature Pulse Rate 76 77 76 Pulse Rate [ From Monitor] Respiratory 22 35 H Rate Blood Pressure 147/70 148/71 148/69 O2 Sat by Pulse 100 100 99 Oximetry O2 Sat by Pulse Oximetry [ Assessment] 11/28/16 11/28/16 18:00 18:30 Temperature Pulse Rate 76 77 Pulse Rate [ From Monitor] Respiratory 36 H 34 H Rate Blood Pressure 145/71 136/63 O2 Sat by Pulse 100 100 Oximetry O2 Sat by Pulse Oximetry [ Assessment] Constitutional: no acute distress, lethargic, appears uncomfortable, other (s/p trach to vent. facial edema) Eyes: non-icteric ENT: oropharynx moist Neck: supple, no lymphadenopathy Effort: mildly labored Ascultation: Bilateral: diminished breath sounds, rales, other (coarse breath sounds bilaterally) Cardiovascular: regular rate and rhythm, other (S1,S2, no mumurs, gallops or rubs) Gastrointestinal: normoactive bowel sounds, soft, non-distended, other ( Gastrostomy tube) Integumentary: normal Extremities: no cyanosis, no edema, no ischemia or petechiae, other (s/p right BKA. right UExt Edema) Neurologic: unable to assess, other (encephalopathic) Psychiatric: other (encephalopathic) CBC and BMP: 11/28/16 05:46 11/28/16 05:46 ABG, PT/INR, D-dimer: ABG POC ABG pH 7.331 (7.35-7.45) L 11/27/16 17:45 POC ABG pCO2 38.1 (35-45) 11/27/16 17:45 POC ABG pO2 46 (80-105) L 11/27/16 17:45 POC ABG HCO3 20.1 11/27/16 17:45 POC ABG Total CO2 21 11/27/16 17:45 POC ABG O2 Sat 79 11/27/16 17:45 PT/INR, D-dimer PT 15.1 Sec. (12.2-14.9) H 11/28/16 05:46 INR 1.20 (0.87-1.13) H 11/28/16 05:46 Abnormal lab findings: Abnormal Labs 10/13/16 10/13/16 10/13/16 06:38 06:38 07:23 WBC RBC Hgb Hct MCV RDW Plt Count Lymph % (Auto) [place] % (Auto) [place] # Seg Neutrophils % Seg Neuts % (Manual) Lymphocytes % (Manual) Monocytes % (Manual) Basophils % (Manual) Nucleated RBC % Seg Neutrophils # Seg Neutrophils # Man Lymphocytes # (Manual) Monocytes # (Manual) Eosinophils # (Manual) Basophils # (Manual) PT INR APTT Heparin Anti-Xa Level POC ABG pH POC ABG pCO2 POC ABG pO2 Sodium Potassium 6.2 H* Chloride Carbon Dioxide 8 L* BUN 85 H Creatinine 2.8 H Glucose 602 H* POC Glucose 495 H Calcium 7.9 L Phosphorus 6.9 H D Magnesium 3.0 H AST Alkaline Phosphatase Troponin T C-Reactive Protein Total Protein Albumin Triglycerides HDL Cholesterol Lipase Vitamin B12 TSH Urine WBC (Auto) Urine Chloride Urine Total Protein Vancomycin Trough Crossmatch 10/13/16 10/13/16 10/13/16 08:49 08:55 10:12 WBC RBC Hgb Hct MCV RDW Plt Count Lymph % (Auto) [place] % (Auto) [place] # Seg Neutrophils % Seg Neuts % (Manual) Lymphocytes % (Manual) Monocytes % (Manual) Basophils % (Manual) Nucleated RBC % Seg Neutrophils # Seg Neutrophils # Man Lymphocytes # (Manual) Monocytes # (Manual) Eosinophils # (Manual) Basophils # (Manual) PT INR APTT Heparin Anti-Xa Level POC ABG pH POC ABG pCO2 POC ABG pO2 Sodium Potassium 5.6 H Chloride Carbon Dioxide 11 L BUN 77 H Creatinine 2.7 H Glucose 457 H POC Glucose > 500 H 424 H Calcium 8.0 L Phosphorus Magnesium AST Alkaline Phosphatase Troponin T C-Reactive Protein Total Protein Albumin Triglycerides HDL Cholesterol Lipase Vitamin B12 TSH Urine WBC (Auto) Urine Chloride Urine Total Protein Vancomycin Trough Crossmatch 10/13/16 10/13/16 10/13/16 10:44 11:22 12:20 WBC RBC Hgb Hct MCV RDW Plt Count Lymph % (Auto) [place] % (Auto) [place] # Seg Neutrophils % Seg Neuts % (Manual) Lymphocytes % (Manual) Monocytes % (Manual) Basophils % (Manual) Nucleated RBC % Seg Neutrophils # Seg Neutrophils # Man Lymphocytes # (Manual) Monocytes # (Manual) Eosinophils # (Manual) Basophils # (Manual) PT INR APTT Heparin Anti-Xa Level POC ABG pH POC ABG pCO2 POC ABG pO2 Sodium Potassium 5.4 H Chloride Carbon Dioxide 14 L BUN 72 H Creatinine 2.6 H Glucose 383 H POC Glucose 391 H 313 H Calcium 8.2 L Phosphorus Magnesium AST Alkaline Phosphatase Troponin T C-Reactive Protein Total Protein Albumin Triglycerides HDL Cholesterol Lipase Vitamin B12 TSH Urine WBC (Auto) Urine Chloride Urine Total Protein Vancomycin Trough Crossmatch 10/13/16 10/13/16 10/13/16 13:32 14:44 15:57 WBC RBC Hgb Hct MCV RDW Plt Count Lymph % (Auto) [place] % (Auto) [place] # Seg Neutrophils % Seg Neuts % (Manual) Lymphocytes % (Manual) Monocytes % (Manual) Basophils % (Manual) Nucleated RBC % Seg Neutrophils # Seg Neutrophils # Man Lymphocytes # (Manual) Monocytes # (Manual) Eosinophils # (Manual) Basophils # (Manual) PT INR APTT Heparin Anti-Xa Level POC ABG pH POC ABG pCO2 POC ABG pO2 Sodium Potassium Chloride Carbon Dioxide BUN Creatinine Glucose POC Glucose 296 H 210 H 190 H Calcium Phosphorus Magnesium AST Alkaline Phosphatase Troponin T C-Reactive Protein Total Protein Albumin Triglycerides HDL Cholesterol Lipase Vitamin B12 TSH Urine WBC (Auto) Urine Chloride Urine Total Protein Vancomycin Trough Crossmatch 10/13/16 10/13/16 10/13/16 16:14 16:14 17:17 WBC RBC Hgb Hct MCV RDW Plt Count Lymph % (Auto) [place] % (Auto) [place] # Seg Neutrophils % Seg Neuts % (Manual) Lymphocytes % (Manual) Monocytes % (Manual) Basophils % (Manual) Nucleated RBC % Seg Neutrophils # Seg Neutrophils # Man Lymphocytes # (Manual) Monocytes # (Manual) Eosinophils # (Manual) Basophils # (Manual) PT INR APTT Heparin Anti-Xa Level POC ABG pH POC ABG pCO2 POC ABG pO2 Sodium Potassium Chloride Carbon Dioxide 17 L BUN 58 H Creatinine 1.8 H Glucose 172 H POC Glucose 193 H Calcium 7.7 L Phosphorus Magnesium AST Alkaline Phosphatase Troponin T C-Reactive Protein 10.50 H Total Protein Albumin Triglycerides HDL Cholesterol Lipase Vitamin B12 TSH Urine WBC (Auto) Urine Chloride Urine Total Protein Vancomycin Trough Crossmatch 10/13/16 10/13/16 10/13/16 17:55 18:32 19:41 WBC RBC Hgb Hct MCV RDW Plt Count Lymph % (Auto) [place] % (Auto) [place] # Seg Neutrophils % Seg Neuts % (Manual) Lymphocytes % (Manual) Monocytes % (Manual) Basophils % (Manual) Nucleated RBC % Seg Neutrophils # Seg Neutrophils # Man Lymphocytes # (Manual) Monocytes # (Manual) Eosinophils # (Manual) Basophils # (Manual) PT INR APTT Heparin Anti-Xa Level POC ABG pH POC ABG pCO2 30.6 L POC ABG pO2 218 H Sodium Potassium Chloride Carbon Dioxide BUN Creatinine Glucose POC Glucose 192 H 177 H Calcium Phosphorus Magnesium AST Alkaline Phosphatase Troponin T C-Reactive Protein Total Protein Albumin Triglycerides HDL Cholesterol Lipase Vitamin B12 TSH Urine WBC (Auto) Urine Chloride Urine Total Protein Vancomycin Trough Crossmatch 10/13/16 10/13/16 10/13/16 20:54 22:07 23:13 WBC RBC Hgb Hct MCV RDW Plt Count Lymph % (Auto) [place] % (Auto) [place] # Seg Neutrophils % Seg Neuts % (Manual) Lymphocytes % (Manual) Monocytes % (Manual) Basophils % (Manual) Nucleated RBC % Seg Neutrophils # Seg Neutrophils # Man Lymphocytes # (Manual) Monocytes # (Manual) Eosinophils # (Manual) Basophils # (Manual) PT INR APTT Heparin Anti-Xa Level POC ABG pH POC ABG pCO2 POC ABG pO2 Sodium Potassium Chloride Carbon Dioxide BUN Creatinine Glucose POC Glucose 178 H 160 H 168 H Calcium Phosphorus Magnesium AST Alkaline Phosphatase Troponin T C-Reactive Protein Total Protein Albumin Triglycerides HDL Cholesterol Lipase Vitamin B12 TSH Urine WBC (Auto) Urine Chloride Urine Total Protein Vancomycin Trough Crossmatch 10/13/16 10/13/16 10/14/16 23:25 Unknown 00:21 WBC RBC Hgb Hct MCV RDW Plt Count Lymph % (Auto) [place] % (Auto) [place] # Seg Neutrophils % Seg Neuts % (Manual) Lymphocytes % (Manual) Monocytes % (Manual) Basophils % (Manual) Nucleated RBC % Seg Neutrophils # Seg Neutrophils # Man Lymphocytes # (Manual) Monocytes # (Manual) Eosinophils # (Manual) Basophils # (Manual) PT INR APTT Heparin Anti-Xa Level POC ABG pH POC ABG pCO2 POC ABG pO2 Sodium 148 H Potassium Chloride 114.6 H Carbon Dioxide 17 L BUN 56 H Creatinine 1.6 H Glucose 151 H POC Glucose 171 H Calcium 7.8 L Phosphorus Magnesium AST Alkaline Phosphatase Troponin T C-Reactive Protein Total Protein Albumin Triglycerides HDL Cholesterol Lipase Vitamin B12 TSH Urine WBC (Auto) Urine Chloride 10.0 L Urine Total Protein < 4 L Vancomycin Trough Crossmatch 10/14/16 10/14/16 10/14/16 01:22 02:29 03:30 WBC RBC Hgb Hct MCV RDW Plt Count Lymph % (Auto) [place] % (Auto) [place] # Seg Neutrophils % Seg Neuts % (Manual) Lymphocytes % (Manual) Monocytes % (Manual) Basophils % (Manual) Nucleated RBC % Seg Neutrophils # Seg Neutrophils # Man Lymphocytes # (Manual) Monocytes # (Manual) Eosinophils # (Manual) Basophils # (Manual) PT INR APTT Heparin Anti-Xa Level POC ABG pH POC ABG pCO2 POC ABG pO2 Sodium Potassium Chloride Carbon Dioxide BUN Creatinine Glucose POC Glucose 144 H 136 H 143 H Calcium Phosphorus Magnesium AST Alkaline Phosphatase Troponin T C-Reactive Protein Total Protein Albumin Triglycerides HDL Cholesterol Lipase Vitamin B12 TSH Urine WBC (Auto) Urine Chloride Urine Total Protein Vancomycin Trough Crossmatch 10/14/16 10/14/16 10/14/16 04:28 05:16 05:44 WBC RBC Hgb Hct MCV RDW Plt Count Lymph % (Auto) [place] % (Auto) [place] # Seg Neutrophils % Seg Neuts % (Manual) Lymphocytes % (Manual) Monocytes % (Manual) Basophils % (Manual) Nucleated RBC % Seg Neutrophils # Seg Neutrophils # Man Lymphocytes # (Manual) Monocytes # (Manual) Eosinophils # (Manual) Basophils # (Manual) PT INR APTT Heparin Anti-Xa Level POC ABG pH POC ABG pCO2 28.2 L POC ABG pO2 125 H Sodium Potassium Chloride Carbon Dioxide BUN Creatinine Glucose POC Glucose 133 H 160 H Calcium Phosphorus Magnesium AST Alkaline Phosphatase Troponin T C-Reactive Protein Total Protein Albumin Triglycerides HDL Cholesterol Lipase Vitamin B12 TSH Urine WBC (Auto) Urine Chloride Urine Total Protein Vancomycin Trough Crossmatch 10/14/16 10/14/16 10/14/16 06:12 06:45 07:03 WBC RBC Hgb Hct MCV RDW Plt Count Lymph % (Auto) [place] % (Auto) [place] # Seg Neutrophils % Seg Neuts % (Manual) Lymphocytes % (Manual) Monocytes % (Manual) Basophils % (Manual) Nucleated RBC % Seg Neutrophils # Seg Neutrophils # Man Lymphocytes # (Manual) Monocytes # (Manual) Eosinophils # (Manual) Basophils # (Manual) PT INR APTT Heparin Anti-Xa Level POC ABG pH POC ABG pCO2 POC ABG pO2 Sodium 149 H Potassium Chloride 115.4 H Carbon Dioxide 17 L BUN 45 H Creatinine 1.5 H Glucose 139 H POC Glucose 149 H Calcium 7.4 L Phosphorus 1.0 L D Magnesium AST Alkaline Phosphatase Troponin T C-Reactive Protein Total Protein Albumin Triglycerides HDL Cholesterol Lipase Vitamin B12 TSH Urine WBC (Auto) Urine Chloride Urine Total Protein Vancomycin Trough Crossmatch 10/14/16 10/14/16 10/14/16 07:03 08:02 09:16 WBC RBC Hgb Hct MCV RDW Plt Count Lymph % (Auto) [place] % (Auto) [place] # Seg Neutrophils % Seg Neuts % (Manual) Lymphocytes % (Manual) Monocytes % (Manual) Basophils % (Manual) Nucleated RBC % Seg Neutrophils # Seg Neutrophils # Man Lymphocytes # (Manual) Monocytes # (Manual) Eosinophils # (Manual) Basophils # (Manual) PT INR APTT Heparin Anti-Xa Level POC ABG pH POC ABG pCO2 POC ABG pO2 Sodium Potassium Chloride Carbon Dioxide BUN Creatinine Glucose POC Glucose 156 H 158 H Calcium Phosphorus Magnesium AST Alkaline Phosphatase Troponin T C-Reactive Protein Total Protein Albumin Triglycerides HDL Cholesterol Lipase 738 H Vitamin B12 TSH Urine WBC (Auto) Urine Chloride Urine Total Protein Vancomycin Trough Crossmatch 10/14/16 10/14/16 10/14/16 10:26 11:03 11:57 WBC RBC Hgb Hct MCV RDW Plt Count Lymph % (Auto) [place] % (Auto) [place] # Seg Neutrophils % Seg Neuts % (Manual) Lymphocytes % (Manual) Monocytes % (Manual) Basophils % (Manual) Nucleated RBC % Seg Neutrophils # Seg Neutrophils # Man Lymphocytes # (Manual) Monocytes # (Manual) Eosinophils # (Manual) Basophils # (Manual) PT INR APTT Heparin Anti-Xa Level POC ABG pH 7.198 L POC ABG pCO2 47.5 H POC ABG pO2 Sodium Potassium Chloride Carbon Dioxide BUN Creatinine Glucose POC Glucose 174 H 189 H Calcium Phosphorus Magnesium AST Alkaline Phosphatase Troponin T C-Reactive Protein Total Protein Albumin Triglycerides HDL Cholesterol Lipase Vitamin B12 TSH Urine WBC (Auto) Urine Chloride Urine Total Protein Vancomycin Trough Crossmatch 10/14/16 10/14/16 10/14/16 12:02 12:02 13:11 WBC 13.4 H RBC 3.60 L Hgb Hct MCV 98 H D RDW 13.1 L Plt Count Lymph % (Auto) [place] % (Auto) [place] # Seg Neutrophils % Seg Neuts % (Manual) Lymphocytes % (Manual) Monocytes % (Manual) Basophils % (Manual) Nucleated RBC % Seg Neutrophils # Seg Neutrophils # Man Lymphocytes # (Manual) Monocytes # (Manual) Eosinophils # (Manual) Basophils # (Manual) PT INR APTT Heparin Anti-Xa Level POC ABG pH POC ABG pCO2 POC ABG pO2 Sodium Potassium Chloride 110.7 H Carbon Dioxide 19 L BUN 38 H Creatinine 1.4 H Glucose 182 H POC Glucose 173 H Calcium 7.5 L Phosphorus Magnesium AST Alkaline Phosphatase Troponin T C-Reactive Protein Total Protein Albumin Triglycerides HDL Cholesterol Lipase Vitamin B12 TSH Urine WBC (Auto) Urine Chloride Urine Total Protein Vancomycin Trough Crossmatch 10/14/16 10/14/16 10/14/16 14:24 15:31 16:36 WBC RBC Hgb Hct MCV RDW Plt Count Lymph % (Auto) [place] % (Auto) [place] # Seg Neutrophils % Seg Neuts % (Manual) Lymphocytes % (Manual) Monocytes % (Manual) Basophils % (Manual) Nucleated RBC % Seg Neutrophils # Seg Neutrophils # Man Lymphocytes # (Manual) Monocytes # (Manual) Eosinophils # (Manual) Basophils # (Manual) PT INR APTT Heparin Anti-Xa Level POC ABG pH POC ABG pCO2 POC ABG pO2 Sodium Potassium Chloride Carbon Dioxide BUN Creatinine Glucose POC Glucose 123 H 124 H 156 H Calcium Phosphorus Magnesium AST Alkaline Phosphatase Troponin T C-Reactive Protein Total Protein Albumin Triglycerides HDL Cholesterol Lipase Vitamin B12 TSH Urine WBC (Auto) Urine Chloride Urine Total Protein Vancomycin Trough Crossmatch 10/14/16 10/14/16 10/14/16 17:43 19:00 20:08 WBC RBC Hgb Hct MCV RDW Plt Count Lymph % (Auto) [place] % (Auto) [place] # Seg Neutrophils % Seg Neuts % (Manual) Lymphocytes % (Manual) Monocytes % (Manual) Basophils % (Manual) Nucleated RBC % Seg Neutrophils # Seg Neutrophils # Man Lymphocytes # (Manual) Monocytes # (Manual) Eosinophils # (Manual) Basophils # (Manual) PT INR APTT Heparin Anti-Xa Level POC ABG pH POC ABG pCO2 POC ABG pO2 Sodium Potassium Chloride Carbon Dioxide BUN Creatinine Glucose POC Glucose 154 H 123 H 138 H Calcium Phosphorus Magnesium AST Alkaline Phosphatase Troponin T C-Reactive Protein Total Protein Albumin Triglycerides HDL Cholesterol Lipase Vitamin B12 TSH Urine WBC (Auto) Urine Chloride Urine Total Protein Vancomycin Trough Crossmatch 10/14/16 10/14/16 10/14/16 21:17 22:25 23:37 WBC RBC Hgb Hct MCV RDW Plt Count Lymph % (Auto) [place] % (Auto) [place] # Seg Neutrophils % Seg Neuts % (Manual) Lymphocytes % (Manual) Monocytes % (Manual) Basophils % (Manual) Nucleated RBC % Seg Neutrophils # Seg Neutrophils # Man Lymphocytes # (Manual) Monocytes # (Manual) Eosinophils # (Manual) Basophils # (Manual) PT INR APTT Heparin Anti-Xa Level POC ABG pH POC ABG pCO2 POC ABG pO2 Sodium Potassium Chloride Carbon Dioxide BUN Creatinine Glucose POC Glucose 148 H 132 H 137 H Calcium Phosphorus Magnesium AST Alkaline Phosphatase Troponin T C-Reactive Protein Total Protein Albumin Triglycerides HDL Cholesterol Lipase Vitamin B12 TSH Urine WBC (Auto) Urine Chloride Urine Total Protein Vancomycin Trough Crossmatch 10/15/16 10/15/16 10/15/16 00:49 01:53 03:06 WBC RBC Hgb Hct MCV RDW Plt Count Lymph % (Auto) [place] % (Auto) [place] # Seg Neutrophils % Seg Neuts % (Manual) Lymphocytes % (Manual) Monocytes % (Manual) Basophils % (Manual) Nucleated RBC % Seg Neutrophils # Seg Neutrophils # Man Lymphocytes # (Manual) Monocytes # (Manual) Eosinophils # (Manual) Basophils # (Manual) PT INR APTT Heparin Anti-Xa Level POC ABG pH POC ABG pCO2 POC ABG pO2 Sodium Potassium Chloride Carbon Dioxide BUN Creatinine Glucose POC Glucose 132 H 134 H 134 H Calcium Phosphorus Magnesium AST Alkaline Phosphatase Troponin T C-Reactive Protein Total Protein Albumin Triglycerides HDL Cholesterol Lipase Vitamin B12 TSH Urine WBC (Auto) Urine Chloride Urine Total Protein Vancomycin Trough Crossmatch 10/15/16 10/15/16 10/15/16 04:40 04:46 06:21 WBC RBC Hgb Hct MCV RDW Plt Count Lymph % (Auto) [place] % (Auto) [place] # Seg Neutrophils % Seg Neuts % (Manual) Lymphocytes % (Manual) Monocytes % (Manual) Basophils % (Manual) Nucleated RBC % Seg Neutrophils # Seg Neutrophils # Man Lymphocytes # (Manual) Monocytes # (Manual) Eosinophils # (Manual) Basophils # (Manual) PT INR APTT Heparin Anti-Xa Level POC ABG pH POC ABG pCO2 30.7 L POC ABG pO2 108 H Sodium Potassium Chloride 109.0 H Carbon Dioxide 17 L BUN 27 H Creatinine Glucose 124 H POC Glucose 160 H Calcium 7.5 L Phosphorus Magnesium AST 79 H Alkaline Phosphatase Troponin T C-Reactive Protein Total Protein 5.5 L Albumin 3.0 L Triglycerides HDL Cholesterol Lipase Vitamin B12 TSH Urine WBC (Auto) Urine Chloride Urine Total Protein Vancomycin Trough Crossmatch 10/15/16 10/15/16 10/15/16 07:12 08:01 09:03 WBC RBC Hgb Hct MCV RDW Plt Count Lymph % (Auto) [place] % (Auto) [place] # Seg Neutrophils % Seg Neuts % (Manual) Lymphocytes % (Manual) Monocytes % (Manual) Basophils % (Manual) Nucleated RBC % Seg Neutrophils # Seg Neutrophils # Man Lymphocytes # (Manual) Monocytes # (Manual) Eosinophils # (Manual) Basophils # (Manual) PT INR APTT Heparin Anti-Xa Level POC ABG pH POC ABG pCO2 POC ABG pO2 Sodium Potassium Chloride Carbon Dioxide BUN Creatinine Glucose POC Glucose 179 H 187 H 165 H Calcium Phosphorus Magnesium AST Alkaline Phosphatase Troponin T C-Reactive Protein Total Protein Albumin Triglycerides HDL Cholesterol Lipase Vitamin B12 TSH Urine WBC (Auto) Urine Chloride Urine Total Protein Vancomycin Trough Crossmatch 10/15/16 10/15/16 10/15/16 10:06 10:06 10:07 WBC 12.1 H RBC 3.01 L Hgb 9.7 L Hct 29.6 L MCV 98 H RDW Plt Count 129 L Lymph % (Auto) [place] % (Auto) [place] # Seg Neutrophils % Seg Neuts % (Manual) Lymphocytes % (Manual) Monocytes % (Manual) Basophils % (Manual) Nucleated RBC % Seg Neutrophils # Seg Neutrophils # Man Lymphocytes # (Manual) Monocytes # (Manual) Eosinophils # (Manual) Basophils # (Manual) PT INR APTT Heparin Anti-Xa Level POC ABG pH POC ABG pCO2 POC ABG pO2 Sodium Potassium 3.2 L D Chloride 109.6 H Carbon Dioxide 18 L BUN 22 H Creatinine Glucose 127 H POC Glucose 147 H Calcium 7.0 L Phosphorus Magnesium AST Alkaline Phosphatase Troponin T C-Reactive Protein Total Protein Albumin Triglycerides HDL Cholesterol Lipase Vitamin B12 TSH Urine WBC (Auto) Urine Chloride Urine Total Protein Vancomycin Trough Crossmatch 10/15/16 10/15/16 10/15/16 11:05 11:06 11:57 WBC RBC Hgb Hct MCV RDW Plt Count Lymph % (Auto) [place] % (Auto) [place] # Seg Neutrophils % Seg Neuts % (Manual) Lymphocytes % (Manual) Monocytes % (Manual) Basophils % (Manual) Nucleated RBC % Seg Neutrophils # Seg Neutrophils # Man Lymphocytes # (Manual) Monocytes # (Manual) Eosinophils # (Manual) Basophils # (Manual) PT INR APTT Heparin Anti-Xa Level POC ABG pH 7.305 L POC ABG pCO2 POC ABG pO2 Sodium Potassium Chloride Carbon Dioxide BUN Creatinine Glucose POC Glucose 145 H Calcium Phosphorus Magnesium AST Alkaline Phosphatase Troponin T C-Reactive Protein Total Protein Albumin Triglycerides HDL Cholesterol Lipase Vitamin B12 TSH Urine WBC (Auto) 7.0 H Urine Chloride Urine Total Protein Vancomycin Trough Crossmatch 10/15/16 10/15/16 10/15/16 12:04 13:59 15:24 WBC RBC Hgb Hct MCV RDW Plt Count Lymph % (Auto) [place] % (Auto) [place] # Seg Neutrophils % Seg Neuts % (Manual) Lymphocytes % (Manual) Monocytes % (Manual) Basophils % (Manual) Nucleated RBC % Seg Neutrophils # Seg Neutrophils # Man Lymphocytes # (Manual) Monocytes # (Manual) Eosinophils # (Manual) Basophils # (Manual) PT INR APTT Heparin Anti-Xa Level POC ABG pH POC ABG pCO2 POC ABG pO2 Sodium Potassium Chloride Carbon Dioxide BUN Creatinine Glucose POC Glucose 123 H 147 H 153 H Calcium Phosphorus Magnesium AST Alkaline Phosphatase Troponin T C-Reactive Protein Total Protein Albumin Triglycerides HDL Cholesterol Lipase Vitamin B12 TSH Urine WBC (Auto) Urine Chloride Urine Total Protein Vancomycin Trough Crossmatch 10/15/16 10/15/16 10/15/16 16:30 17:34 18:30 WBC RBC Hgb Hct MCV RDW Plt Count Lymph % (Auto) [place] % (Auto) [place] # Seg Neutrophils % Seg Neuts % (Manual) Lymphocytes % (Manual) Monocytes % (Manual) Basophils % (Manual) Nucleated RBC % Seg Neutrophils # Seg Neutrophils # Man Lymphocytes # (Manual) Monocytes # (Manual) Eosinophils # (Manual) Basophils # (Manual) PT INR APTT Heparin Anti-Xa Level POC ABG pH POC ABG pCO2 POC ABG pO2 Sodium Potassium Chloride Carbon Dioxide BUN Creatinine Glucose POC Glucose 223 H 236 H 164 H Calcium Phosphorus Magnesium AST Alkaline Phosphatase Troponin T C-Reactive Protein Total Protein Albumin Triglycerides HDL Cholesterol Lipase Vitamin B12 TSH Urine WBC (Auto) Urine Chloride Urine Total Protein Vancomycin Trough Crossmatch 10/15/16 10/15/16 10/15/16 19:14 20:31 21:23 WBC RBC Hgb Hct MCV RDW Plt Count Lymph % (Auto) [place] % (Auto) [place] # Seg Neutrophils % Seg Neuts % (Manual) Lymphocytes % (Manual) Monocytes % (Manual) Basophils % (Manual) Nucleated RBC % Seg Neutrophils # Seg Neutrophils # Man Lymphocytes # (Manual) Monocytes # (Manual) Eosinophils # (Manual) Basophils # (Manual) PT INR APTT Heparin Anti-Xa Level POC ABG pH POC ABG pCO2 POC ABG pO2 Sodium Potassium Chloride Carbon Dioxide BUN Creatinine Glucose POC Glucose 138 H 158 H 158 H Calcium Phosphorus Magnesium AST Alkaline Phosphatase Troponin T C-Reactive Protein Total Protein Albumin Triglycerides HDL Cholesterol Lipase Vitamin B12 TSH Urine WBC (Auto) Urine Chloride Urine Total Protein Vancomycin Trough Crossmatch 10/15/16 10/15/16 10/16/16 22:04 22:57 00:11 WBC RBC Hgb Hct MCV RDW Plt Count Lymph % (Auto) [place] % (Auto) [place] # Seg Neutrophils % Seg Neuts % (Manual) Lymphocytes % (Manual) Monocytes % (Manual) Basophils % (Manual) Nucleated RBC % Seg Neutrophils # Seg Neutrophils # Man Lymphocytes # (Manual) Monocytes # (Manual) Eosinophils # (Manual) Basophils # (Manual) PT INR APTT Heparin Anti-Xa Level POC ABG pH POC ABG pCO2 POC ABG pO2 Sodium Potassium Chloride Carbon Dioxide BUN Creatinine Glucose POC Glucose 168 H 213 H 166 H Calcium Phosphorus Magnesium AST Alkaline Phosphatase Troponin T C-Reactive Protein Total Protein Albumin Triglycerides HDL Cholesterol Lipase Vitamin B12 TSH Urine WBC (Auto) Urine Chloride Urine Total Protein Vancomycin Trough Crossmatch 10/16/16 10/16/16 10/16/16 01:16 02:32 03:38 WBC RBC Hgb Hct MCV RDW Plt Count Lymph % (Auto) [place] % (Auto) [place] # Seg Neutrophils % Seg Neuts % (Manual) Lymphocytes % (Manual) Monocytes % (Manual) Basophils % (Manual) Nucleated RBC % Seg Neutrophils # Seg Neutrophils # Man Lymphocytes # (Manual) Monocytes # (Manual) Eosinophils # (Manual) Basophils # (Manual) PT INR APTT Heparin Anti-Xa Level POC ABG pH POC ABG pCO2 POC ABG pO2 Sodium Potassium Chloride Carbon Dioxide BUN Creatinine Glucose POC Glucose 171 H 164 H 147 H Calcium Phosphorus Magnesium AST Alkaline Phosphatase Troponin T C-Reactive Protein Total Protein Albumin Triglycerides HDL Cholesterol Lipase Vitamin B12 TSH Urine WBC (Auto) Urine Chloride Urine Total Protein Vancomycin Trough Crossmatch 10/16/16 10/16/16 10/16/16 04:14 04:14 04:49 WBC RBC Hgb Hct MCV RDW Plt Count Lymph % (Auto) [place] % (Auto) [place] # Seg Neutrophils % Seg Neuts % (Manual) Lymphocytes % (Manual) Monocytes % (Manual) Basophils % (Manual) Nucleated RBC % Seg Neutrophils # Seg Neutrophils # Man Lymphocytes # (Manual) Monocytes # (Manual) Eosinophils # (Manual) Basophils # (Manual) PT INR APTT Heparin Anti-Xa Level POC ABG pH POC ABG pCO2 POC ABG pO2 Sodium 147 H Potassium Chloride 110.9 H Carbon Dioxide 19 L BUN Creatinine Glucose 139 H POC Glucose 144 H Calcium 7.3 L Phosphorus 2.3 L Magnesium AST Alkaline Phosphatase Troponin T C-Reactive Protein Total Protein Albumin Triglycerides HDL Cholesterol Lipase 143 H Vitamin B12 TSH Urine WBC (Auto) Urine Chloride Urine Total Protein Vancomycin Trough Crossmatch 10/16/16 10/16/16 10/16/16 05:03 05:41 05:58 WBC 16.5 H RBC 3.36 L Hgb Hct MCV 98 H RDW 13.1 L Plt Count Lymph % (Auto) 8.5 L [place] % (Auto) 7.6 H [place] # 1.3 H Seg Neutrophils % 83.3 H Seg Neuts % (Manual) Lymphocytes % (Manual) Monocytes % (Manual) Basophils % (Manual) Nucleated RBC % Seg Neutrophils # 13.8 H Seg Neutrophils # Man Lymphocytes # (Manual) Monocytes # (Manual) Eosinophils # (Manual) Basophils # (Manual) PT INR APTT Heparin Anti-Xa Level POC ABG pH POC ABG pCO2 30.7 L POC ABG pO2 128 H Sodium Potassium Chloride Carbon Dioxide BUN Creatinine Glucose POC Glucose 131 H Calcium Phosphorus Magnesium AST Alkaline Phosphatase Troponin T C-Reactive Protein Total Protein Albumin Triglycerides HDL Cholesterol Lipase Vitamin B12 TSH Urine WBC (Auto) Urine Chloride Urine Total Protein Vancomycin Trough Crossmatch 10/16/16 10/16/16 10/16/16 06:32 09:27 09:35 WBC RBC Hgb Hct MCV RDW Plt Count Lymph % (Auto) [place] % (Auto) [place] # Seg Neutrophils % Seg Neuts % (Manual) Lymphocytes % (Manual) Monocytes % (Manual) Basophils % (Manual) Nucleated RBC % Seg Neutrophils # Seg Neutrophils # Man Lymphocytes # (Manual) Monocytes # (Manual) Eosinophils # (Manual) Basophils # (Manual) PT INR APTT Heparin Anti-Xa Level POC ABG pH POC ABG pCO2 32.8 L POC ABG pO2 137 H Sodium Potassium Chloride Carbon Dioxide BUN Creatinine Glucose POC Glucose 121 H 150 H Calcium Phosphorus Magnesium AST Alkaline Phosphatase Troponin T C-Reactive Protein Total Protein Albumin Triglycerides HDL Cholesterol Lipase Vitamin B12 TSH Urine WBC (Auto) Urine Chloride Urine Total Protein Vancomycin Trough Crossmatch 10/16/16 10/16/16 10/16/16 10:47 13:27 14:24 WBC RBC Hgb Hct MCV RDW Plt Count Lymph % (Auto) [place] % (Auto) [place] # Seg Neutrophils % Seg Neuts % (Manual) Lymphocytes % (Manual) Monocytes % (Manual) Basophils % (Manual) Nucleated RBC % Seg Neutrophils # Seg Neutrophils # Man Lymphocytes # (Manual) Monocytes # (Manual) Eosinophils # (Manual) Basophils # (Manual) PT INR APTT Heparin Anti-Xa Level POC ABG pH POC ABG pCO2 POC ABG pO2 Sodium Potassium Chloride Carbon Dioxide BUN Creatinine Glucose POC Glucose 184 H 171 H 174 H Calcium Phosphorus Magnesium AST Alkaline Phosphatase Troponin T C-Reactive Protein Total Protein Albumin Triglycerides HDL Cholesterol Lipase Vitamin B12 TSH Urine WBC (Auto) Urine Chloride Urine Total Protein Vancomycin Trough Crossmatch 10/16/16 10/16/16 10/16/16 15:48 16:26 18:17 WBC RBC Hgb Hct MCV RDW Plt Count Lymph % (Auto) [place] % (Auto) [place] # Seg Neutrophils % Seg Neuts % (Manual) Lymphocytes % (Manual) Monocytes % (Manual) Basophils % (Manual) Nucleated RBC % Seg Neutrophils # Seg Neutrophils # Man Lymphocytes # (Manual) Monocytes # (Manual) Eosinophils # (Manual) Basophils # (Manual) PT INR APTT Heparin Anti-Xa Level POC ABG pH POC ABG pCO2 POC ABG pO2 Sodium Potassium Chloride Carbon Dioxide BUN Creatinine Glucose POC Glucose 205 H 204 H 234 H Calcium Phosphorus Magnesium AST Alkaline Phosphatase Troponin T C-Reactive Protein Total Protein Albumin Triglycerides HDL Cholesterol Lipase Vitamin B12 TSH Urine WBC (Auto) Urine Chloride Urine Total Protein Vancomycin Trough Crossmatch 10/16/16 10/16/16 10/16/16 19:40 20:33 21:36 WBC RBC Hgb Hct MCV RDW Plt Count Lymph % (Auto) [place] % (Auto) [place] # Seg Neutrophils % Seg Neuts % (Manual) Lymphocytes % (Manual) Monocytes % (Manual) Basophils % (Manual) Nucleated RBC % Seg Neutrophils # Seg Neutrophils # Man Lymphocytes # (Manual) Monocytes # (Manual) Eosinophils # (Manual) Basophils # (Manual) PT INR APTT Heparin Anti-Xa Level POC ABG pH POC ABG pCO2 POC ABG pO2 Sodium Potassium Chloride Carbon Dioxide BUN Creatinine Glucose POC Glucose 167 H 153 H 158 H Calcium Phosphorus Magnesium AST Alkaline Phosphatase Troponin T C-Reactive Protein Total Protein Albumin Triglycerides HDL Cholesterol Lipase Vitamin B12 TSH Urine WBC (Auto) Urine Chloride Urine Total Protein Vancomycin Trough Crossmatch 10/16/16 10/16/16 10/17/16 22:54 23:48 00:47 WBC RBC Hgb Hct MCV RDW Plt Count Lymph % (Auto) [place] % (Auto) [place] # Seg Neutrophils % Seg Neuts % (Manual) Lymphocytes % (Manual) Monocytes % (Manual) Basophils % (Manual) Nucleated RBC % Seg Neutrophils # Seg Neutrophils # Man Lymphocytes # (Manual) Monocytes # (Manual) Eosinophils # (Manual) Basophils # (Manual) PT INR APTT Heparin Anti-Xa Level POC ABG pH POC ABG pCO2 POC ABG pO2 Sodium Potassium Chloride Carbon Dioxide BUN Creatinine Glucose POC Glucose 180 H 207 H 196 H Calcium Phosphorus Magnesium AST Alkaline Phosphatase Troponin T C-Reactive Protein Total Protein Albumin Triglycerides HDL Cholesterol Lipase Vitamin B12 TSH Urine WBC (Auto) Urine Chloride Urine Total Protein Vancomycin Trough Crossmatch 10/17/16 10/17/16 10/17/16 01:57 02:49 03:50 WBC RBC Hgb Hct MCV RDW Plt Count Lymph % (Auto) [place] % (Auto) [place] # Seg Neutrophils % Seg Neuts % (Manual) Lymphocytes % (Manual) Monocytes % (Manual) Basophils % (Manual) Nucleated RBC % Seg Neutrophils # Seg Neutrophils # Man Lymphocytes # (Manual) Monocytes # (Manual) Eosinophils # (Manual) Basophils # (Manual) PT INR APTT Heparin Anti-Xa Level POC ABG pH POC ABG pCO2 POC ABG pO2 Sodium Potassium Chloride Carbon Dioxide BUN Creatinine Glucose POC Glucose 180 H 151 H 106 H Calcium Phosphorus Magnesium AST Alkaline Phosphatase Troponin T C-Reactive Protein Total Protein Albumin Triglycerides HDL Cholesterol Lipase Vitamin B12 TSH Urine WBC (Auto) Urine Chloride Urine Total Protein Vancomycin Trough Crossmatch 10/17/16 10/17/16 10/17/16 04:59 06:03 06:35 WBC RBC Hgb Hct MCV RDW Plt Count Lymph % (Auto) [place] % (Auto) [place] # Seg Neutrophils % Seg Neuts % (Manual) Lymphocytes % (Manual) Monocytes % (Manual) Basophils % (Manual) Nucleated RBC % Seg Neutrophils # Seg Neutrophils # Man Lymphocytes # (Manual) Monocytes # (Manual) Eosinophils # (Manual) Basophils # (Manual) PT INR APTT Heparin Anti-Xa Level POC ABG pH 7.453 H POC ABG pCO2 30.1 L POC ABG pO2 111 H Sodium Potassium Chloride Carbon Dioxide BUN Creatinine Glucose POC Glucose 145 H 157 H Calcium Phosphorus Magnesium AST Alkaline Phosphatase Troponin T C-Reactive Protein Total Protein Albumin Triglycerides HDL Cholesterol Lipase Vitamin B12 TSH Urine WBC (Auto) Urine Chloride Urine Total Protein Vancomycin Trough Crossmatch 10/17/16 10/17/16 10/17/16 07:08 07:11 08:01 WBC RBC Hgb Hct MCV RDW Plt Count Lymph % (Auto) [place] % (Auto) [place] # Seg Neutrophils % Seg Neuts % (Manual) Lymphocytes % (Manual) Monocytes % (Manual) Basophils % (Manual) Nucleated RBC % Seg Neutrophils # Seg Neutrophils # Man Lymphocytes # (Manual) Monocytes # (Manual) Eosinophils # (Manual) Basophils # (Manual) PT INR APTT Heparin Anti-Xa Level POC ABG pH POC ABG pCO2 POC ABG pO2 Sodium 147 H Potassium Chloride 113.8 H Carbon Dioxide 19 L BUN Creatinine Glucose 136 H POC Glucose 136 H 152 H Calcium 7.7 L Phosphorus Magnesium AST Alkaline Phosphatase Troponin T C-Reactive Protein Total Protein Albumin Triglycerides HDL Cholesterol Lipase Vitamin B12 TSH Urine WBC (Auto) Urine Chloride Urine Total Protein Vancomycin Trough Crossmatch 10/17/16 10/17/16 10/17/16 08:23 09:17 09:53 WBC 18.1 H RBC 3.01 L Hgb 9.7 L Hct 29.4 L MCV 98 H RDW Plt Count 116 L Lymph % (Auto) [place] % (Auto) [place] # Seg Neutrophils % Seg Neuts % (Manual) 77.0 H Lymphocytes % (Manual) 4.0 L Monocytes % (Manual) 12.0 H Basophils % (Manual) Nucleated RBC % Seg Neutrophils # Seg Neutrophils # Man 13.9 H Lymphocytes # (Manual) 0.7 L Monocytes # (Manual) 2.2 H Eosinophils # (Manual) Basophils # (Manual) PT INR APTT Heparin Anti-Xa Level POC ABG pH POC ABG pCO2 POC ABG pO2 Sodium Potassium Chloride Carbon Dioxide BUN Creatinine Glucose POC Glucose 148 H 137 H Calcium Phosphorus Magnesium AST Alkaline Phosphatase Troponin T C-Reactive Protein Total Protein Albumin Triglycerides HDL Cholesterol Lipase Vitamin B12 TSH Urine WBC (Auto) Urine Chloride Urine Total Protein Vancomycin Trough Crossmatch 10/17/16 10/17/16 10/17/16 11:43 16:07 17:42 WBC RBC Hgb Hct MCV RDW Plt Count Lymph % (Auto) [place] % (Auto) [place] # Seg Neutrophils % Seg Neuts % (Manual) Lymphocytes % (Manual) Monocytes % (Manual) Basophils % (Manual) Nucleated RBC % Seg Neutrophils # Seg Neutrophils # Man Lymphocytes # (Manual) Monocytes # (Manual) Eosinophils # (Manual) Basophils # (Manual) PT 16.4 H INR 1.33 H APTT 38.8 H Heparin Anti-Xa Level POC ABG pH POC ABG pCO2 POC ABG pO2 Sodium Potassium Chloride Carbon Dioxide BUN Creatinine Glucose POC Glucose 179 H 153 H Calcium Phosphorus Magnesium AST Alkaline Phosphatase Troponin T C-Reactive Protein Total Protein Albumin Triglycerides HDL Cholesterol Lipase Vitamin B12 TSH Urine WBC (Auto) Urine Chloride Urine Total Protein Vancomycin Trough Crossmatch 10/17/16 10/18/16 10/18/16 22:54 04:37 05:39 WBC RBC Hgb Hct MCV RDW Plt Count Lymph % (Auto) [place] % (Auto) [place] # Seg Neutrophils % Seg Neuts % (Manual) Lymphocytes % (Manual) Monocytes % (Manual) Basophils % (Manual) Nucleated RBC % Seg Neutrophils # Seg Neutrophils # Man Lymphocytes # (Manual) Monocytes # (Manual) Eosinophils # (Manual) Basophils # (Manual) PT INR APTT Heparin Anti-Xa Level 0.27 L POC ABG pH 7.454 H POC ABG pCO2 30.8 L POC ABG pO2 115 H Sodium Potassium Chloride Carbon Dioxide BUN Creatinine Glucose POC Glucose 69 L Calcium Phosphorus Magnesium AST Alkaline Phosphatase Troponin T C-Reactive Protein Total Protein Albumin Triglycerides HDL Cholesterol Lipase Vitamin B12 TSH Urine WBC (Auto) Urine Chloride Urine Total Protein Vancomycin Trough Crossmatch 10/18/16 10/18/16 10/18/16 06:46 06:46 06:46 WBC 20.5 H RBC 2.62 L Hgb 8.4 L Hct 26.0 L MCV 100 H RDW Plt Count Lymph % (Auto) [place] % (Auto) [place] # Seg Neutrophils % Seg Neuts % (Manual) 75.0 H Lymphocytes % (Manual) 9.0 L Monocytes % (Manual) 14.0 H Basophils % (Manual) Nucleated RBC % Seg Neutrophils # Seg Neutrophils # Man 15.4 H Lymphocytes # (Manual) Monocytes # (Manual) 2.9 H Eosinophils # (Manual) Basophils # (Manual) PT INR APTT Heparin Anti-Xa Level POC ABG pH POC ABG pCO2 POC ABG pO2 Sodium Potassium Chloride 110.6 H Carbon Dioxide BUN Creatinine 1.3 H Glucose 153 H POC Glucose Calcium 8.0 L Phosphorus Magnesium 1.6 L AST Alkaline Phosphatase Troponin T C-Reactive Protein Total Protein Albumin Triglycerides HDL Cholesterol Lipase Vitamin B12 TSH Urine WBC (Auto) Urine Chloride Urine Total Protein Vancomycin Trough Crossmatch 10/18/16 10/18/16 10/18/16 07:30 11:37 17:51 WBC RBC Hgb Hct MCV RDW Plt Count Lymph % (Auto) [place] % (Auto) [place] # Seg Neutrophils % Seg Neuts % (Manual) Lymphocytes % (Manual) Monocytes % (Manual) Basophils % (Manual) Nucleated RBC % Seg Neutrophils # Seg Neutrophils # Man Lymphocytes # (Manual) Monocytes # (Manual) Eosinophils # (Manual) Basophils # (Manual) PT INR APTT Heparin Anti-Xa Level POC ABG pH POC ABG pCO2 POC ABG pO2 Sodium Potassium Chloride Carbon Dioxide BUN Creatinine Glucose POC Glucose 162 H 156 H 164 H Calcium Phosphorus Magnesium AST Alkaline Phosphatase Troponin T C-Reactive Protein Total Protein Albumin Triglycerides HDL Cholesterol Lipase Vitamin B12 TSH Urine WBC (Auto) Urine Chloride Urine Total Protein Vancomycin Trough Crossmatch 10/18/16 10/19/16 10/19/16 23:44 03:59 05:13 WBC 18.2 H RBC 2.76 L Hgb 9.0 L Hct 27.7 L MCV 100 H RDW Plt Count Lymph % (Auto) [place] % (Auto) [place] # Seg Neutrophils % Seg Neuts % (Manual) 76.0 H Lymphocytes % (Manual) 10.0 L Monocytes % (Manual) Basophils % (Manual) Nucleated RBC % Seg Neutrophils # Seg Neutrophils # Man 13.8 H Lymphocytes # (Manual) Monocytes # (Manual) Eosinophils # (Manual) Basophils # (Manual) PT INR APTT Heparin Anti-Xa Level POC ABG pH POC ABG pCO2 32.2 L POC ABG pO2 128 H Sodium Potassium Chloride Carbon Dioxide BUN Creatinine Glucose POC Glucose 278 H Calcium Phosphorus Magnesium AST Alkaline Phosphatase Troponin T C-Reactive Protein Total Protein Albumin Triglycerides HDL Cholesterol Lipase Vitamin B12 TSH Urine WBC (Auto) Urine Chloride Urine Total Protein Vancomycin Trough Crossmatch 10/19/16 10/19/16 10/19/16 06:01 06:30 12:20 WBC RBC Hgb Hct MCV RDW Plt Count Lymph % (Auto) [place] % (Auto) [place] # Seg Neutrophils % Seg Neuts % (Manual) Lymphocytes % (Manual) Monocytes % (Manual) Basophils % (Manual) Nucleated RBC % Seg Neutrophils # Seg Neutrophils # Man Lymphocytes # (Manual) Monocytes # (Manual) Eosinophils # (Manual) Basophils # (Manual) PT INR APTT Heparin Anti-Xa Level POC ABG pH POC ABG pCO2 POC ABG pO2 Sodium Potassium Chloride Carbon Dioxide 18 L BUN Creatinine 1.3 H Glucose 262 H POC Glucose 261 H 349 H Calcium 7.7 L Phosphorus 4.8 H D Magnesium AST Alkaline Phosphatase Troponin T C-Reactive Protein Total Protein Albumin Triglycerides HDL Cholesterol Lipase Vitamin B12 TSH Urine WBC (Auto) Urine Chloride Urine Total Protein Vancomycin Trough Crossmatch 10/19/16 10/20/16 10/20/16 16:48 00:17 05:20 WBC 22.5 H RBC 2.80 L Hgb 8.9 L Hct 28.3 L MCV 101 H RDW Plt Count Lymph % (Auto) [place] % (Auto) [place] # Seg Neutrophils % Seg Neuts % (Manual) Lymphocytes % (Manual) 10.0 L Monocytes % (Manual) Basophils % (Manual) Nucleated RBC % Seg Neutrophils # Seg Neutrophils # Man 13.3 H Lymphocytes # (Manual) Monocytes # (Manual) 1.1 H Eosinophils # (Manual) 0.7 H Basophils # (Manual) PT INR APTT Heparin Anti-Xa Level POC ABG pH POC ABG pCO2 POC ABG pO2 Sodium Potassium Chloride Carbon Dioxide BUN Creatinine Glucose POC Glucose 248 H 346 H Calcium Phosphorus Magnesium AST Alkaline Phosphatase Troponin T C-Reactive Protein Total Protein Albumin Triglycerides HDL Cholesterol Lipase Vitamin B12 TSH Urine WBC (Auto) Urine Chloride Urine Total Protein Vancomycin Trough Crossmatch 10/20/16 10/20/16 10/20/16 05:20 05:20 06:05 WBC RBC Hgb Hct MCV RDW Plt Count Lymph % (Auto) [place] % (Auto) [place] # Seg Neutrophils % Seg Neuts % (Manual) Lymphocytes % (Manual) Monocytes % (Manual) Basophils % (Manual) Nucleated RBC % Seg Neutrophils # Seg Neutrophils # Man Lymphocytes # (Manual) Monocytes # (Manual) Eosinophils # (Manual) Basophils # (Manual) PT INR APTT Heparin Anti-Xa Level 0.20 L POC ABG pH POC ABG pCO2 POC ABG pO2 Sodium Potassium Chloride Carbon Dioxide BUN 20 H Creatinine Glucose 374 H POC Glucose 337 H Calcium 8.3 L Phosphorus Magnesium AST Alkaline Phosphatase Troponin T C-Reactive Protein Total Protein Albumin Triglycerides HDL Cholesterol Lipase Vitamin B12 TSH Urine WBC (Auto) Urine Chloride Urine Total Protein Vancomycin Trough Crossmatch 10/20/16 10/20/16 10/20/16 11:49 13:59 17:56 WBC RBC Hgb Hct MCV RDW Plt Count Lymph % (Auto) [place] % (Auto) [place] # Seg Neutrophils % Seg Neuts % (Manual) Lymphocytes % (Manual) Monocytes % (Manual) Basophils % (Manual) Nucleated RBC % Seg Neutrophils # Seg Neutrophils # Man Lymphocytes # (Manual) Monocytes # (Manual) Eosinophils # (Manual) Basophils # (Manual) PT INR APTT Heparin Anti-Xa Level 2.00 H POC ABG pH POC ABG pCO2 POC ABG pO2 Sodium Potassium Chloride Carbon Dioxide BUN Creatinine Glucose POC Glucose 305 H 362 H Calcium Phosphorus Magnesium AST Alkaline Phosphatase Troponin T C-Reactive Protein Total Protein Albumin Triglycerides HDL Cholesterol Lipase Vitamin B12 TSH Urine WBC (Auto) Urine Chloride Urine Total Protein Vancomycin Trough Crossmatch 10/20/16 10/21/16 10/21/16 23:52 05:00 05:49 WBC 22.9 H RBC 2.49 L Hgb 7.7 L Hct 25.6 L MCV 103 H RDW Plt Count Lymph % (Auto) [place] % (Auto) [place] # Seg Neutrophils % Seg Neuts % (Manual) 94.0 H Lymphocytes % (Manual) 1.0 L Monocytes % (Manual) Basophils % (Manual) Nucleated RBC % Seg Neutrophils # Seg Neutrophils # Man 21.5 H Lymphocytes # (Manual) 0.2 L Monocytes # (Manual) 1.1 H Eosinophils # (Manual) Basophils # (Manual) PT INR APTT Heparin Anti-Xa Level POC ABG pH POC ABG pCO2 POC ABG pO2 Sodium Potassium Chloride Carbon Dioxide BUN Creatinine Glucose POC Glucose 252 H 180 H Calcium Phosphorus Magnesium AST Alkaline Phosphatase Troponin T C-Reactive Protein Total Protein Albumin Triglycerides HDL Cholesterol Lipase Vitamin B12 TSH Urine WBC (Auto) Urine Chloride Urine Total Protein Vancomycin Trough Crossmatch 10/21/16 10/21/16 10/21/16 11:47 11:49 14:10 WBC RBC Hgb Hct MCV RDW Plt Count Lymph % (Auto) [place] % (Auto) [place] # Seg Neutrophils % Seg Neuts % (Manual) Lymphocytes % (Manual) Monocytes % (Manual) Basophils % (Manual) Nucleated RBC % Seg Neutrophils # Seg Neutrophils # Man Lymphocytes # (Manual) Monocytes # (Manual) Eosinophils # (Manual) Basophils # (Manual) PT INR APTT Heparin Anti-Xa Level POC ABG pH POC ABG pCO2 POC ABG pO2 Sodium Potassium Chloride Carbon Dioxide BUN Creatinine Glucose POC Glucose 50 L 56 L 140 H Calcium Phosphorus Magnesium AST Alkaline Phosphatase Troponin T C-Reactive Protein Total Protein Albumin Triglycerides HDL Cholesterol Lipase Vitamin B12 TSH Urine WBC (Auto) Urine Chloride Urine Total Protein Vancomycin Trough Crossmatch 10/21/16 10/21/16 10/22/16 18:24 Unknown 00:07 WBC RBC Hgb Hct MCV RDW Plt Count Lymph % (Auto) [place] % (Auto) [place] # Seg Neutrophils % Seg Neuts % (Manual) Lymphocytes % (Manual) Monocytes % (Manual) Basophils % (Manual) Nucleated RBC % Seg Neutrophils # Seg Neutrophils # Man Lymphocytes # (Manual) Monocytes # (Manual) Eosinophils # (Manual) Basophils # (Manual) PT INR APTT Heparin Anti-Xa Level POC ABG pH POC ABG pCO2 POC ABG pO2 Sodium 150 H Potassium 3.1 L Chloride 112.4 H Carbon Dioxide BUN 25 H Creatinine 1.4 H Glucose POC Glucose 175 H 218 H Calcium 8.0 L Phosphorus Magnesium AST Alkaline Phosphatase Troponin T C-Reactive Protein Total Protein Albumin Triglycerides HDL Cholesterol Lipase Vitamin B12 TSH Urine WBC (Auto) Urine Chloride Urine Total Protein Vancomycin Trough Crossmatch 10/22/16 10/22/16 10/22/16 04:20 04:20 10:25 WBC 20.8 H RBC 2.37 L Hgb 7.5 L Hct 23.9 L MCV 101 H RDW Plt Count Lymph % (Auto) [place] % (Auto) [place] # Seg Neutrophils % Seg Neuts % (Manual) 89.0 H Lymphocytes % (Manual) 7.0 L Monocytes % (Manual) Basophils % (Manual) Nucleated RBC % Seg Neutrophils # Seg Neutrophils # Man 18.5 H Lymphocytes # (Manual) Monocytes # (Manual) Eosinophils # (Manual) Basophils # (Manual) 0.2 H PT INR APTT Heparin Anti-Xa Level POC ABG pH POC ABG pCO2 POC ABG pO2 Sodium 148 H Potassium 2.9 L* Chloride 109.4 H Carbon Dioxide BUN 26 H Creatinine Glucose 140 H POC Glucose Calcium 7.5 L Phosphorus Magnesium AST Alkaline Phosphatase Troponin T C-Reactive Protein Total Protein Albumin Triglycerides HDL Cholesterol Lipase Vitamin B12 976.8 H TSH Urine WBC (Auto) Urine Chloride Urine Total Protein Vancomycin Trough Crossmatch 10/22/16 10/22/16 10/22/16 10:25 14:50 18:16 WBC RBC Hgb Hct MCV RDW Plt Count Lymph % (Auto) [place] % (Auto) [place] # Seg Neutrophils % Seg Neuts % (Manual) Lymphocytes % (Manual) Monocytes % (Manual) Basophils % (Manual) Nucleated RBC % Seg Neutrophils # Seg Neutrophils # Man Lymphocytes # (Manual) Monocytes # (Manual) Eosinophils # (Manual) Basophils # (Manual) PT INR APTT Heparin Anti-Xa Level POC ABG pH POC ABG pCO2 POC ABG pO2 Sodium Potassium Chloride Carbon Dioxide BUN Creatinine Glucose POC Glucose 193 H Calcium Phosphorus Magnesium AST Alkaline Phosphatase Troponin T C-Reactive Protein Total Protein Albumin Triglycerides HDL Cholesterol Lipase Vitamin B12 TSH 0.143 L 0.162 L Urine WBC (Auto) Urine Chloride Urine Total Protein Vancomycin Trough Crossmatch 10/22/16 10/22/16 10/22/16 20:00 20:00 20:00 WBC 24.1 H RBC 2.58 L Hgb 8.2 L Hct 26.4 L MCV 102 H RDW Plt Count Lymph % (Auto) [place] % (Auto) [place] # Seg Neutrophils % Seg Neuts % (Manual) 74.0 H Lymphocytes % (Manual) 7.0 L Monocytes % (Manual) Basophils % (Manual) Nucleated RBC % Seg Neutrophils # Seg Neutrophils # Man 17.8 H Lymphocytes # (Manual) Monocytes # (Manual) Eosinophils # (Manual) Basophils # (Manual) PT INR APTT Heparin Anti-Xa Level 1.92 H POC ABG pH POC ABG pCO2 POC ABG pO2 Sodium Potassium Chloride Carbon Dioxide BUN Creatinine Glucose POC Glucose Calcium Phosphorus Magnesium AST Alkaline Phosphatase Troponin T C-Reactive Protein Total Protein Albumin Triglycerides HDL Cholesterol Lipase Vitamin B12 TSH Urine WBC (Auto) Urine Chloride Urine Total Protein Vancomycin Trough Crossmatch See Detail 10/23/16 10/23/16 10/23/16 00:21 06:09 12:07 WBC RBC Hgb Hct MCV RDW Plt Count Lymph % (Auto) [place] % (Auto) [place] # Seg Neutrophils % Seg Neuts % (Manual) Lymphocytes % (Manual) Monocytes % (Manual) Basophils % (Manual) Nucleated RBC % Seg Neutrophils # Seg Neutrophils # Man Lymphocytes # (Manual) Monocytes # (Manual) Eosinophils # (Manual) Basophils # (Manual) PT INR APTT Heparin Anti-Xa Level POC ABG pH POC ABG pCO2 POC ABG pO2 Sodium Potassium Chloride Carbon Dioxide BUN Creatinine Glucose POC Glucose 283 H 241 H 340 H Calcium Phosphorus Magnesium AST Alkaline Phosphatase Troponin T C-Reactive Protein Total Protein Albumin Triglycerides HDL Cholesterol Lipase Vitamin B12 TSH Urine WBC (Auto) Urine Chloride Urine Total Protein Vancomycin Trough Crossmatch 10/23/16 10/23/16 10/23/16 14:01 16:00 17:59 WBC RBC Hgb Hct MCV RDW Plt Count Lymph % (Auto) [place] % (Auto) [place] # Seg Neutrophils % Seg Neuts % (Manual) Lymphocytes % (Manual) Monocytes % (Manual) Basophils % (Manual) Nucleated RBC % Seg Neutrophils # Seg Neutrophils # Man Lymphocytes # (Manual) Monocytes # (Manual) Eosinophils # (Manual) Basophils # (Manual) PT INR APTT Heparin Anti-Xa Level 0.19 L POC ABG pH POC ABG pCO2 32.4 L POC ABG pO2 Sodium Potassium Chloride Carbon Dioxide BUN Creatinine Glucose POC Glucose 245 H Calcium Phosphorus Magnesium AST Alkaline Phosphatase Troponin T C-Reactive Protein Total Protein Albumin Triglycerides HDL Cholesterol Lipase Vitamin B12 TSH Urine WBC (Auto) Urine Chloride Urine Total Protein Vancomycin Trough Crossmatch 10/23/16 10/23/16 10/23/16 22:55 Unknown Unknown WBC 22.6 H RBC 3.26 L Hgb Hct MCV RDW 17.1 H Plt Count Lymph % (Auto) [place] % (Auto) [place] # Seg Neutrophils % Seg Neuts % (Manual) Lymphocytes % (Manual) 11.0 L Monocytes % (Manual) Basophils % (Manual) Nucleated RBC % Seg Neutrophils # Seg Neutrophils # Man 14.0 H Lymphocytes # (Manual) Monocytes # (Manual) Eosinophils # (Manual) Basophils # (Manual) PT INR APTT Heparin Anti-Xa Level 0.17 L 0.15 L POC ABG pH POC ABG pCO2 POC ABG pO2 Sodium Potassium Chloride Carbon Dioxide BUN Creatinine Glucose POC Glucose Calcium Phosphorus Magnesium AST Alkaline Phosphatase Troponin T C-Reactive Protein Total Protein Albumin Triglycerides HDL Cholesterol Lipase Vitamin B12 TSH Urine WBC (Auto) Urine Chloride Urine Total Protein Vancomycin Trough Crossmatch 10/23/16 10/24/16 10/24/16 Unknown 00:05 05:30 WBC RBC Hgb Hct MCV RDW Plt Count Lymph % (Auto) [place] % (Auto) [place] # Seg Neutrophils % Seg Neuts % (Manual) Lymphocytes % (Manual) Monocytes % (Manual) Basophils % (Manual) Nucleated RBC % Seg Neutrophils # Seg Neutrophils # Man Lymphocytes # (Manual) Monocytes # (Manual) Eosinophils # (Manual) Basophils # (Manual) PT INR APTT Heparin Anti-Xa Level 0.13 L POC ABG pH POC ABG pCO2 POC ABG pO2 Sodium Potassium Chloride 111.2 H Carbon Dioxide 20 L BUN 25 H Creatinine Glucose 227 H POC Glucose 118 H Calcium 7.1 L Phosphorus Magnesium AST Alkaline Phosphatase Troponin T C-Reactive Protein Total Protein Albumin Triglycerides HDL Cholesterol Lipase Vitamin B12 TSH Urine WBC (Auto) Urine Chloride Urine Total Protein Vancomycin Trough Crossmatch 10/24/16 10/24/16 10/24/16 11:00 11:00 12:06 WBC 17.6 H RBC 2.92 L Hgb 9.2 L Hct 28.3 L MCV RDW 16.9 H Plt Count Lymph % (Auto) [place] % (Auto) [place] # Seg Neutrophils % Seg Neuts % (Manual) Lymphocytes % (Manual) Monocytes % (Manual) Basophils % (Manual) Nucleated RBC % Seg Neutrophils # Seg Neutrophils # Man Lymphocytes # (Manual) Monocytes # (Manual) Eosinophils # (Manual) Basophils # (Manual) PT INR APTT Heparin Anti-Xa Level 0.27 L POC ABG pH POC ABG pCO2 POC ABG pO2 Sodium Potassium Chloride Carbon Dioxide BUN Creatinine Glucose POC Glucose 166 H Calcium Phosphorus Magnesium AST Alkaline Phosphatase Troponin T C-Reactive Protein Total Protein Albumin Triglycerides HDL Cholesterol Lipase Vitamin B12 TSH Urine WBC (Auto) Urine Chloride Urine Total Protein Vancomycin Trough Crossmatch 10/24/16 10/25/16 10/25/16 12:27 00:49 03:30 WBC RBC Hgb 8.8 L Hct 28.1 L MCV RDW Plt Count Lymph % (Auto) [place] % (Auto) [place] # Seg Neutrophils % Seg Neuts % (Manual) Lymphocytes % (Manual) Monocytes % (Manual) Basophils % (Manual) Nucleated RBC % Seg Neutrophils # Seg Neutrophils # Man Lymphocytes # (Manual) Monocytes # (Manual) Eosinophils # (Manual) Basophils # (Manual) PT INR APTT Heparin Anti-Xa Level POC ABG pH POC ABG pCO2 33.9 L POC ABG pO2 Sodium Potassium Chloride Carbon Dioxide BUN Creatinine Glucose POC Glucose 121 H Calcium Phosphorus Magnesium AST Alkaline Phosphatase Troponin T C-Reactive Protein Total Protein Albumin Triglycerides HDL Cholesterol Lipase Vitamin B12 TSH Urine WBC (Auto) Urine Chloride Urine Total Protein Vancomycin Trough Crossmatch 10/25/16 10/25/16 10/25/16 09:49 12:10 19:25 WBC 21.1 H RBC 3.02 L Hgb 9.3 L Hct 28.9 L MCV RDW 16.3 H Plt Count Lymph % (Auto) [place] % (Auto) [place] # Seg Neutrophils % Seg Neuts % (Manual) 81.0 H Lymphocytes % (Manual) 9.0 L Monocytes % (Manual) Basophils % (Manual) Nucleated RBC % Seg Neutrophils # Seg Neutrophils # Man 17.1 H Lymphocytes # (Manual) Monocytes # (Manual) Eosinophils # (Manual) Basophils # (Manual) PT INR APTT Heparin Anti-Xa Level POC ABG pH POC ABG pCO2 POC ABG pO2 Sodium Potassium Chloride Carbon Dioxide BUN Creatinine Glucose POC Glucose 158 H 151 H Calcium Phosphorus Magnesium AST Alkaline Phosphatase Troponin T C-Reactive Protein Total Protein Albumin Triglycerides HDL Cholesterol Lipase Vitamin B12 TSH Urine WBC (Auto) Urine Chloride Urine Total Protein Vancomycin Trough Crossmatch 10/26/16 10/26/16 10/26/16 00:20 01:09 05:02 WBC 22.2 H RBC 2.89 L Hgb 8.7 L Hct 27.8 L MCV RDW 16.4 H Plt Count Lymph % (Auto) [place] % (Auto) [place] # Seg Neutrophils % Seg Neuts % (Manual) Lymphocytes % (Manual) Monocytes % (Manual) Basophils % (Manual) Nucleated RBC % Seg Neutrophils # Seg Neutrophils # Man Lymphocytes # (Manual) Monocytes # (Manual) Eosinophils # (Manual) Basophils # (Manual) PT INR APTT Heparin Anti-Xa Level POC ABG pH POC ABG pCO2 POC ABG pO2 Sodium Potassium Chloride Carbon Dioxide BUN Creatinine Glucose POC Glucose 44 L 112 H Calcium Phosphorus Magnesium AST Alkaline Phosphatase Troponin T C-Reactive Protein Total Protein Albumin Triglycerides HDL Cholesterol Lipase Vitamin B12 TSH Urine WBC (Auto) Urine Chloride Urine Total Protein Vancomycin Trough Crossmatch 10/26/16 10/26/16 10/26/16 05:02 12:11 12:14 WBC RBC Hgb Hct MCV RDW Plt Count Lymph % (Auto) [place] % (Auto) [place] # Seg Neutrophils % Seg Neuts % (Manual) Lymphocytes % (Manual) Monocytes % (Manual) Basophils % (Manual) Nucleated RBC % Seg Neutrophils # Seg Neutrophils # Man Lymphocytes # (Manual) Monocytes # (Manual) Eosinophils # (Manual) Basophils # (Manual) PT INR APTT Heparin Anti-Xa Level POC ABG pH POC ABG pCO2 32.0 L POC ABG pO2 33 L Sodium Potassium 3.2 L D Chloride Carbon Dioxide 20 L BUN 24 H Creatinine Glucose 104 H POC Glucose 194 H Calcium 7.7 L Phosphorus Magnesium AST Alkaline Phosphatase Troponin T C-Reactive Protein Total Protein Albumin Triglycerides HDL Cholesterol Lipase Vitamin B12 TSH Urine WBC (Auto) Urine Chloride Urine Total Protein Vancomycin Trough Crossmatch 10/26/16 10/26/16 10/27/16 15:28 17:23 00:04 WBC RBC Hgb Hct MCV RDW Plt Count Lymph % (Auto) [place] % (Auto) [place] # Seg Neutrophils % Seg Neuts % (Manual) Lymphocytes % (Manual) Monocytes % (Manual) Basophils % (Manual) Nucleated RBC % Seg Neutrophils # Seg Neutrophils # Man Lymphocytes # (Manual) Monocytes # (Manual) Eosinophils # (Manual) Basophils # (Manual) PT INR APTT Heparin Anti-Xa Level POC ABG pH POC ABG pCO2 33.7 L POC ABG pO2 Sodium Potassium Chloride Carbon Dioxide BUN Creatinine Glucose POC Glucose 181 H 230 H Calcium Phosphorus Magnesium AST Alkaline Phosphatase Troponin T C-Reactive Protein Total Protein Albumin Triglycerides HDL Cholesterol Lipase Vitamin B12 TSH Urine WBC (Auto) Urine Chloride Urine Total Protein Vancomycin Trough Crossmatch 10/27/16 10/27/16 10/27/16 05:15 05:15 05:38 WBC 25.5 H RBC 3.07 L Hgb 9.4 L Hct 30.1 L MCV 98 H RDW 16.4 H Plt Count 527 H Lymph % (Auto) [place] % (Auto) [place] # Seg Neutrophils % Seg Neuts % (Manual) Lymphocytes % (Manual) Monocytes % (Manual) Basophils % (Manual) Nucleated RBC % Seg Neutrophils # Seg Neutrophils # Man Lymphocytes # (Manual) Monocytes # (Manual) Eosinophils # (Manual) Basophils # (Manual) PT INR APTT Heparin Anti-Xa Level POC ABG pH POC ABG pCO2 POC ABG pO2 Sodium Potassium Chloride Carbon Dioxide 19 L BUN 23 H Creatinine Glucose 160 H POC Glucose 168 H Calcium 8.0 L Phosphorus Magnesium AST Alkaline Phosphatase Troponin T C-Reactive Protein Total Protein Albumin Triglycerides HDL Cholesterol Lipase Vitamin B12 TSH Urine WBC (Auto) Urine Chloride Urine Total Protein Vancomycin Trough Crossmatch 10/27/16 10/27/16 10/27/16 11:59 18:35 23:48 WBC RBC Hgb Hct MCV RDW Plt Count Lymph % (Auto) [place] % (Auto) [place] # Seg Neutrophils % Seg Neuts % (Manual) Lymphocytes % (Manual) Monocytes % (Manual) Basophils % (Manual) Nucleated RBC % Seg Neutrophils # Seg Neutrophils # Man Lymphocytes # (Manual) Monocytes # (Manual) Eosinophils # (Manual) Basophils # (Manual) PT INR APTT Heparin Anti-Xa Level POC ABG pH POC ABG pCO2 POC ABG pO2 Sodium Potassium Chloride Carbon Dioxide BUN Creatinine Glucose POC Glucose 197 H 318 H 316 H Calcium Phosphorus Magnesium AST Alkaline Phosphatase Troponin T C-Reactive Protein Total Protein Albumin Triglycerides HDL Cholesterol Lipase Vitamin B12 TSH Urine WBC (Auto) Urine Chloride Urine Total Protein Vancomycin Trough Crossmatch 10/28/16 10/28/16 10/28/16 03:13 04:10 04:10 WBC 18.8 H RBC 2.64 L Hgb 8.1 L Hct 26.1 L MCV 99 H RDW 16.2 H Plt Count 544 H Lymph % (Auto) [place] % (Auto) [place] # Seg Neutrophils % Seg Neuts % (Manual) Lymphocytes % (Manual) Monocytes % (Manual) Basophils % (Manual) Nucleated RBC % Seg Neutrophils # Seg Neutrophils # Man Lymphocytes # (Manual) Monocytes # (Manual) Eosinophils # (Manual) Basophils # (Manual) PT INR APTT Heparin Anti-Xa Level POC ABG pH POC ABG pCO2 POC ABG pO2 Sodium Potassium Chloride Carbon Dioxide 21 L BUN 24 H Creatinine Glucose 302 H POC Glucose 304 H Calcium 7.7 L Phosphorus Magnesium AST Alkaline Phosphatase Troponin T C-Reactive Protein Total Protein Albumin Triglycerides HDL Cholesterol Lipase Vitamin B12 TSH Urine WBC (Auto) Urine Chloride Urine Total Protein Vancomycin Trough Crossmatch 10/28/16 10/28/16 10/28/16 04:10 12:36 18:27 WBC RBC Hgb Hct MCV RDW Plt Count Lymph % (Auto) [place] % (Auto) [place] # Seg Neutrophils % Seg Neuts % (Manual) Lymphocytes % (Manual) Monocytes % (Manual) Basophils % (Manual) Nucleated RBC % Seg Neutrophils # Seg Neutrophils # Man Lymphocytes # (Manual) Monocytes # (Manual) Eosinophils # (Manual) Basophils # (Manual) PT INR APTT Heparin Anti-Xa Level 0.20 L POC ABG pH POC ABG pCO2 POC ABG pO2 Sodium Potassium Chloride Carbon Dioxide BUN Creatinine Glucose POC Glucose 205 H 339 H Calcium Phosphorus Magnesium AST Alkaline Phosphatase Troponin T C-Reactive Protein Total Protein Albumin Triglycerides HDL Cholesterol Lipase Vitamin B12 TSH Urine WBC (Auto) Urine Chloride Urine Total Protein Vancomycin Trough Crossmatch 10/29/16 10/29/16 10/29/16 01:05 06:19 09:30 WBC 20.3 H RBC 2.80 L Hgb 8.5 L Hct 26.7 L MCV RDW 15.4 H Plt Count 571 H Lymph % (Auto) [place] % (Auto) [place] # Seg Neutrophils % Seg Neuts % (Manual) 75.0 H Lymphocytes % (Manual) 4.0 L Monocytes % (Manual) Basophils % (Manual) Nucleated RBC % Seg Neutrophils # Seg Neutrophils # Man 15.2 H Lymphocytes # (Manual) 0.8 L Monocytes # (Manual) Eosinophils # (Manual) Basophils # (Manual) PT INR APTT Heparin Anti-Xa Level POC ABG pH POC ABG pCO2 POC ABG pO2 Sodium Potassium Chloride Carbon Dioxide BUN Creatinine Glucose POC Glucose 275 H 179 H Calcium Phosphorus Magnesium AST Alkaline Phosphatase Troponin T C-Reactive Protein Total Protein Albumin Triglycerides HDL Cholesterol Lipase Vitamin B12 TSH Urine WBC (Auto) Urine Chloride Urine Total Protein Vancomycin Trough Crossmatch 10/29/16 10/29/16 10/29/16 11:46 15:18 17:55 WBC RBC Hgb Hct MCV RDW Plt Count Lymph % (Auto) [place] % (Auto) [place] # Seg Neutrophils % Seg Neuts % (Manual) Lymphocytes % (Manual) Monocytes % (Manual) Basophils % (Manual) Nucleated RBC % Seg Neutrophils # Seg Neutrophils # Man Lymphocytes # (Manual) Monocytes # (Manual) Eosinophils # (Manual) Basophils # (Manual) PT INR APTT Heparin Anti-Xa Level 1.15 H POC ABG pH POC ABG pCO2 POC ABG pO2 Sodium Potassium Chloride Carbon Dioxide BUN Creatinine Glucose POC Glucose 122 H 255 H Calcium Phosphorus Magnesium AST Alkaline Phosphatase Troponin T C-Reactive Protein Total Protein Albumin Triglycerides HDL Cholesterol Lipase Vitamin B12 TSH Urine WBC (Auto) Urine Chloride Urine Total Protein Vancomycin Trough Crossmatch 10/30/16 10/30/16 10/30/16 00:10 05:30 05:30 WBC 19.8 H RBC 2.51 L Hgb 7.7 L Hct 24.1 L MCV RDW 15.5 H Plt Count 534 H Lymph % (Auto) [place] % (Auto) [place] # Seg Neutrophils % Seg Neuts % (Manual) Lymphocytes % (Manual) Monocytes % (Manual) Basophils % (Manual) Nucleated RBC % Seg Neutrophils # Seg Neutrophils # Man Lymphocytes # (Manual) Monocytes # (Manual) Eosinophils # (Manual) Basophils # (Manual) PT INR APTT Heparin Anti-Xa Level POC ABG pH POC ABG pCO2 POC ABG pO2 Sodium Potassium Chloride Carbon Dioxide BUN Creatinine Glucose 211 H POC Glucose 202 H Calcium 7.4 L Phosphorus Magnesium AST Alkaline Phosphatase Troponin T C-Reactive Protein Total Protein Albumin Triglycerides HDL Cholesterol Lipase Vitamin B12 TSH Urine WBC (Auto) Urine Chloride Urine Total Protein Vancomycin Trough Crossmatch 10/30/16 10/30/16 10/30/16 06:32 12:51 17:47 WBC RBC Hgb Hct MCV RDW Plt Count Lymph % (Auto) [place] % (Auto) [place] # Seg Neutrophils % Seg Neuts % (Manual) Lymphocytes % (Manual) Monocytes % (Manual) Basophils % (Manual) Nucleated RBC % Seg Neutrophils # Seg Neutrophils # Man Lymphocytes # (Manual) Monocytes # (Manual) Eosinophils # (Manual) Basophils # (Manual) PT INR APTT Heparin Anti-Xa Level POC ABG pH POC ABG pCO2 POC ABG pO2 Sodium Potassium Chloride Carbon Dioxide BUN Creatinine Glucose POC Glucose 207 H 218 H 169 H Calcium Phosphorus Magnesium AST Alkaline Phosphatase Troponin T C-Reactive Protein Total Protein Albumin Triglycerides HDL Cholesterol Lipase Vitamin B12 TSH Urine WBC (Auto) Urine Chloride Urine Total Protein Vancomycin Trough Crossmatch 10/30/16 10/31/16 10/31/16 23:59 05:25 11:21 WBC RBC Hgb Hct MCV RDW Plt Count Lymph % (Auto) [place] % (Auto) [place] # Seg Neutrophils % Seg Neuts % (Manual) Lymphocytes % (Manual) Monocytes % (Manual) Basophils % (Manual) Nucleated RBC % Seg Neutrophils # Seg Neutrophils # Man Lymphocytes # (Manual) Monocytes # (Manual) Eosinophils # (Manual) Basophils # (Manual) PT INR APTT Heparin Anti-Xa Level POC ABG pH POC ABG pCO2 POC ABG pO2 Sodium Potassium Chloride Carbon Dioxide BUN Creatinine Glucose POC Glucose 138 H 127 H 132 H Calcium Phosphorus Magnesium AST Alkaline Phosphatase Troponin T C-Reactive Protein Total Protein Albumin Triglycerides HDL Cholesterol Lipase Vitamin B12 TSH Urine WBC (Auto) Urine Chloride Urine Total Protein Vancomycin Trough Crossmatch 10/31/16 10/31/16 11/01/16 17:07 23:54 05:47 WBC RBC Hgb Hct MCV RDW Plt Count Lymph % (Auto) [place] % (Auto) [place] # Seg Neutrophils % Seg Neuts % (Manual) Lymphocytes % (Manual) Monocytes % (Manual) Basophils % (Manual) Nucleated RBC % Seg Neutrophils # Seg Neutrophils # Man Lymphocytes # (Manual) Monocytes # (Manual) Eosinophils # (Manual) Basophils # (Manual) PT INR APTT Heparin Anti-Xa Level POC ABG pH POC ABG pCO2 POC ABG pO2 Sodium Potassium Chloride Carbon Dioxide BUN Creatinine Glucose POC Glucose 138 H 153 H 150 H Calcium Phosphorus Magnesium AST Alkaline Phosphatase Troponin T C-Reactive Protein Total Protein Albumin Triglycerides HDL Cholesterol Lipase Vitamin B12 TSH Urine WBC (Auto) Urine Chloride Urine Total Protein Vancomycin Trough Crossmatch 11/01/16 11/01/16 11/01/16 06:33 06:33 12:16 WBC 19.2 H RBC 2.51 L Hgb 7.9 L Hct 24.8 L MCV 99 H D RDW 16.1 H Plt Count 569 H Lymph % (Auto) [place] % (Auto) [place] # Seg Neutrophils % Seg Neuts % (Manual) Lymphocytes % (Manual) Monocytes % (Manual) Basophils % (Manual) Nucleated RBC % Seg Neutrophils # Seg Neutrophils # Man Lymphocytes # (Manual) Monocytes # (Manual) Eosinophils # (Manual) Basophils # (Manual) PT INR APTT Heparin Anti-Xa Level POC ABG pH POC ABG pCO2 POC ABG pO2 Sodium Potassium 3.5 L Chloride Carbon Dioxide 21 L BUN Creatinine Glucose 137 H POC Glucose 125 H Calcium 7.7 L Phosphorus Magnesium AST Alkaline Phosphatase 148 H Troponin T C-Reactive Protein Total Protein 6.2 L Albumin 2.0 L Triglycerides HDL Cholesterol Lipase Vitamin B12 TSH Urine WBC (Auto) Urine Chloride Urine Total Protein Vancomycin Trough Crossmatch 11/01/16 11/02/16 11/02/16 17:37 00:05 04:15 WBC RBC Hgb Hct MCV RDW Plt Count Lymph % (Auto) [place] % (Auto) [place] # Seg Neutrophils % Seg Neuts % (Manual) Lymphocytes % (Manual) Monocytes % (Manual) Basophils % (Manual) Nucleated RBC % Seg Neutrophils # Seg Neutrophils # Man Lymphocytes # (Manual) Monocytes # (Manual) Eosinophils # (Manual) Basophils # (Manual) PT INR APTT Heparin Anti-Xa Level < 0.10 L POC ABG pH POC ABG pCO2 POC ABG pO2 Sodium Potassium 3.2 L Chloride Carbon Dioxide BUN 6 L Creatinine Glucose 135 H POC Glucose 164 H Calcium 7.5 L Phosphorus Magnesium AST Alkaline Phosphatase 132 H Troponin T C-Reactive Protein Total Protein 6.2 L Albumin 1.8 L Triglycerides HDL Cholesterol Lipase Vitamin B12 TSH Urine WBC (Auto) Urine Chloride Urine Total Protein Vancomycin Trough Crossmatch 11/02/16 11/02/16 11/02/16 04:15 05:54 12:15 WBC 17.7 H RBC 2.43 L Hgb 7.6 L Hct 23.5 L MCV RDW 15.9 H Plt Count 502 H Lymph % (Auto) [place] % (Auto) [place] # Seg Neutrophils % Seg Neuts % (Manual) 84.0 H Lymphocytes % (Manual) 11.0 L Monocytes % (Manual) Basophils % (Manual) Nucleated RBC % 1.0 H Seg Neutrophils # Seg Neutrophils # Man 14.9 H Lymphocytes # (Manual) Monocytes # (Manual) Eosinophils # (Manual) Basophils # (Manual) PT INR APTT Heparin Anti-Xa Level POC ABG pH POC ABG pCO2 POC ABG pO2 Sodium Potassium Chloride Carbon Dioxide BUN Creatinine Glucose POC Glucose 152 H 137 H Calcium Phosphorus Magnesium AST Alkaline Phosphatase Troponin T C-Reactive Protein Total Protein Albumin Triglycerides HDL Cholesterol Lipase Vitamin B12 TSH Urine WBC (Auto) Urine Chloride Urine Total Protein Vancomycin Trough Crossmatch 11/02/16 11/03/16 11/03/16 17:00 00:05 00:05 WBC RBC Hgb Hct MCV RDW Plt Count Lymph % (Auto) [place] % (Auto) [place] # Seg Neutrophils % Seg Neuts % (Manual) Lymphocytes % (Manual) Monocytes % (Manual) Basophils % (Manual) Nucleated RBC % Seg Neutrophils # Seg Neutrophils # Man Lymphocytes # (Manual) Monocytes # (Manual) Eosinophils # (Manual) Basophils # (Manual) PT INR APTT Heparin Anti-Xa Level POC ABG pH POC ABG pCO2 POC ABG pO2 Sodium Potassium Chloride Carbon Dioxide 20 L BUN 5 L Creatinine Glucose 139 H POC Glucose 161 H Calcium 6.7 L Phosphorus Magnesium 1.2 L AST Alkaline Phosphatase Troponin T C-Reactive Protein Total Protein Albumin Triglycerides HDL Cholesterol Lipase Vitamin B12 TSH Urine WBC (Auto) Urine Chloride Urine Total Protein Vancomycin Trough Crossmatch 11/03/16 11/03/16 11/03/16 00:05 02:05 04:23 WBC 15.9 H 14.0 H RBC 1.93 L 2.38 L Hgb 5.9 L* 7.3 L Hct 18.9 L* 23.1 L MCV 98 H RDW 15.9 H 15.9 H Plt Count Lymph % (Auto) [place] % (Auto) [place] # Seg Neutrophils % Seg Neuts % (Manual) 85.0 H Lymphocytes % (Manual) 4.0 L Monocytes % (Manual) Basophils % (Manual) Nucleated RBC % Seg Neutrophils # Seg Neutrophils # Man 13.5 H Lymphocytes # (Manual) 0.6 L Monocytes # (Manual) Eosinophils # (Manual) Basophils # (Manual) PT INR APTT Heparin Anti-Xa Level POC ABG pH POC ABG pCO2 POC ABG pO2 Sodium Potassium Chloride Carbon Dioxide BUN 5 L Creatinine Glucose 127 H POC Glucose Calcium 7.2 L Phosphorus Magnesium AST Alkaline Phosphatase Troponin T C-Reactive Protein Total Protein 5.8 L Albumin 1.5 L Triglycerides HDL Cholesterol Lipase Vitamin B12 TSH Urine WBC (Auto) Urine Chloride Urine Total Protein Vancomycin Trough Crossmatch 11/03/16 11/03/16 11/03/16 09:14 09:27 11:54 WBC RBC Hgb Hct MCV RDW Plt Count Lymph % (Auto) [place] % (Auto) [place] # Seg Neutrophils % Seg Neuts % (Manual) Lymphocytes % (Manual) Monocytes % (Manual) Basophils % (Manual) Nucleated RBC % Seg Neutrophils # Seg Neutrophils # Man Lymphocytes # (Manual) Monocytes # (Manual) Eosinophils # (Manual) Basophils # (Manual) PT INR APTT Heparin Anti-Xa Level 0.11 L POC ABG pH POC ABG pCO2 POC ABG pO2 Sodium Potassium Chloride Carbon Dioxide BUN 5 L Creatinine Glucose 111 H POC Glucose 139 H Calcium 6.7 L Phosphorus Magnesium AST Alkaline Phosphatase Troponin T C-Reactive Protein Total Protein Albumin Triglycerides HDL Cholesterol Lipase Vitamin B12 TSH Urine WBC (Auto) Urine Chloride Urine Total Protein Vancomycin Trough Crossmatch 11/03/16 11/03/16 11/03/16 16:26 18:01 18:01 WBC RBC Hgb Hct MCV RDW Plt Count Lymph % (Auto) [place] % (Auto) [place] # Seg Neutrophils % Seg Neuts % (Manual) Lymphocytes % (Manual) Monocytes % (Manual) Basophils % (Manual) Nucleated RBC % Seg Neutrophils # Seg Neutrophils # Man Lymphocytes # (Manual) Monocytes # (Manual) Eosinophils # (Manual) Basophils # (Manual) PT INR APTT Heparin Anti-Xa Level 2.00 H POC ABG pH POC ABG pCO2 POC ABG pO2 Sodium Potassium Chloride Carbon Dioxide BUN Creatinine Glucose POC Glucose 142 H Calcium Phosphorus Magnesium AST Alkaline Phosphatase Troponin T C-Reactive Protein Total Protein Albumin Triglycerides HDL Cholesterol Lipase Vitamin B12 TSH Urine WBC (Auto) Urine Chloride Urine Total Protein Vancomycin Trough Crossmatch See Detail 11/04/16 11/04/16 11/04/16 02:15 02:15 06:35 WBC 11.8 H RBC 2.39 L Hgb 7.4 L Hct 23.1 L MCV RDW 15.9 H Plt Count Lymph % (Auto) [place] % (Auto) [place] # Seg Neutrophils % Seg Neuts % (Manual) 76.0 H Lymphocytes % (Manual) 12.0 L Monocytes % (Manual) 9.0 H Basophils % (Manual) Nucleated RBC % Seg Neutrophils # Seg Neutrophils # Man 9.0 H Lymphocytes # (Manual) Monocytes # (Manual) 1.1 H Eosinophils # (Manual) Basophils # (Manual) PT INR APTT Heparin Anti-Xa Level < 0.10 L POC ABG pH POC ABG pCO2 POC ABG pO2 Sodium Potassium Chloride Carbon Dioxide 21 L BUN 5 L Creatinine Glucose 112 H POC Glucose Calcium 6.8 L Phosphorus Magnesium AST Alkaline Phosphatase Troponin T C-Reactive Protein Total Protein 5.7 L Albumin 1.7 L Triglycerides HDL Cholesterol Lipase Vitamin B12 TSH Urine WBC (Auto) Urine Chloride Urine Total Protein Vancomycin Trough Crossmatch 11/04/16 11/04/16 11/04/16 10:51 12:58 15:04 WBC RBC Hgb Hct MCV RDW Plt Count Lymph % (Auto) [place] % (Auto) [place] # Seg Neutrophils % Seg Neuts % (Manual) Lymphocytes % (Manual) Monocytes % (Manual) Basophils % (Manual) Nucleated RBC % Seg Neutrophils # Seg Neutrophils # Man Lymphocytes # (Manual) Monocytes # (Manual) Eosinophils # (Manual) Basophils # (Manual) PT INR APTT Heparin Anti-Xa Level 1.05 H POC ABG pH POC ABG pCO2 33.7 L POC ABG pO2 60 L Sodium Potassium Chloride Carbon Dioxide BUN Creatinine Glucose POC Glucose 118 H Calcium Phosphorus Magnesium AST Alkaline Phosphatase Troponin T C-Reactive Protein Total Protein Albumin Triglycerides HDL Cholesterol Lipase Vitamin B12 TSH Urine WBC (Auto) Urine Chloride Urine Total Protein Vancomycin Trough Crossmatch 11/04/16 11/04/16 11/05/16 17:20 20:31 02:30 WBC RBC Hgb Hct MCV RDW Plt Count Lymph % (Auto) [place] % (Auto) [place] # Seg Neutrophils % Seg Neuts % (Manual) Lymphocytes % (Manual) Monocytes % (Manual) Basophils % (Manual) Nucleated RBC % Seg Neutrophils # Seg Neutrophils # Man Lymphocytes # (Manual) Monocytes # (Manual) Eosinophils # (Manual) Basophils # (Manual) PT INR APTT Heparin Anti-Xa Level POC ABG pH POC ABG pCO2 POC ABG pO2 Sodium Potassium 3.5 L Chloride Carbon Dioxide 18 L BUN 5 L Creatinine 0.6 L Glucose 110 H POC Glucose 228 H 169 H Calcium 7.1 L Phosphorus Magnesium AST Alkaline Phosphatase Troponin T C-Reactive Protein Total Protein Albumin 1.9 L Triglycerides HDL Cholesterol Lipase Vitamin B12 TSH Urine WBC (Auto) Urine Chloride Urine Total Protein Vancomycin Trough Crossmatch 11/05/16 11/05/16 11/05/16 02:30 17:52 21:07 WBC 14.1 H RBC Hgb Hct MCV RDW 16.7 H Plt Count Lymph % (Auto) [place] % (Auto) [place] # Seg Neutrophils % Seg Neuts % (Manual) 80.0 H Lymphocytes % (Manual) 6.0 L Monocytes % (Manual) 8.0 H Basophils % (Manual) Nucleated RBC % Seg Neutrophils # Seg Neutrophils # Man 11.3 H Lymphocytes # (Manual) 0.8 L Monocytes # (Manual) 1.1 H Eosinophils # (Manual) Basophils # (Manual) PT INR APTT Heparin Anti-Xa Level < 0.10 L POC ABG pH POC ABG pCO2 POC ABG pO2 Sodium Potassium Chloride Carbon Dioxide BUN Creatinine Glucose POC Glucose 174 H Calcium Phosphorus Magnesium AST Alkaline Phosphatase Troponin T C-Reactive Protein Total Protein Albumin Triglycerides HDL Cholesterol Lipase Vitamin B12 TSH Urine WBC (Auto) Urine Chloride Urine Total Protein Vancomycin Trough Crossmatch 0311/06/16 11/06/16 23:30 05:00 05:00 WBC 15.2 H RBC 3.29 L Hgb 10.0 L Hct MCV RDW 16.9 H Plt Count Lymph % (Auto) [place] % (Auto) [place] # Seg Neutrophils % Seg Neuts % (Manual) Lymphocytes % (Manual) Monocytes % (Manual) Basophils % (Manual) Nucleated RBC % Seg Neutrophils # Seg Neutrophils # Man Lymphocytes # (Manual) Monocytes # (Manual) Eosinophils # (Manual) Basophils # (Manual) PT INR APTT Heparin Anti-Xa Level 0.94 H POC ABG pH POC ABG pCO2 POC ABG pO2 Sodium Potassium Chloride Carbon Dioxide BUN Creatinine Glucose POC Glucose 131 H Calcium Phosphorus Magnesium AST Alkaline Phosphatase Troponin T C-Reactive Protein Total Protein Albumin Triglycerides HDL Cholesterol Lipase Vitamin B12 TSH Urine WBC (Auto) Urine Chloride Urine Total Protein Vancomycin Trough Crossmatch 11/06/16 11/06/16 11/06/16 05:00 11:45 18:23 WBC RBC Hgb Hct MCV RDW Plt Count Lymph % (Auto) [place] % (Auto) [place] # Seg Neutrophils % Seg Neuts % (Manual) Lymphocytes % (Manual) Monocytes % (Manual) Basophils % (Manual) Nucleated RBC % Seg Neutrophils # Seg Neutrophils # Man Lymphocytes # (Manual) Monocytes # (Manual) Eosinophils # (Manual) Basophils # (Manual) PT INR APTT Heparin Anti-Xa Level POC ABG pH POC ABG pCO2 POC ABG pO2 Sodium Potassium 3.5 L Chloride 107.1 H Carbon Dioxide 20 L BUN 4 L Creatinine 0.6 L Glucose 104 H POC Glucose 141 H 255 H Calcium 6.7 L Phosphorus Magnesium AST Alkaline Phosphatase Troponin T C-Reactive Protein Total Protein Albumin Triglycerides HDL Cholesterol Lipase Vitamin B12 TSH Urine WBC (Auto) Urine Chloride Urine Total Protein Vancomycin Trough Crossmatch 11/06/16 11/06/16 11/07/16 22:07 23:07 11:41 WBC RBC Hgb Hct MCV RDW Plt Count Lymph % (Auto) [place] % (Auto) [place] # Seg Neutrophils % Seg Neuts % (Manual) Lymphocytes % (Manual) Monocytes % (Manual) Basophils % (Manual) Nucleated RBC % Seg Neutrophils # Seg Neutrophils # Man Lymphocytes # (Manual) Monocytes # (Manual) Eosinophils # (Manual) Basophils # (Manual) PT INR APTT Heparin Anti-Xa Level 0.80 H POC ABG pH POC ABG pCO2 POC ABG pO2 Sodium Potassium Chloride Carbon Dioxide BUN Creatinine Glucose POC Glucose 183 H 132 H Calcium Phosphorus Magnesium AST Alkaline Phosphatase Troponin T C-Reactive Protein Total Protein Albumin Triglycerides HDL Cholesterol Lipase Vitamin B12 TSH Urine WBC (Auto) Urine Chloride Urine Total Protein Vancomycin Trough Crossmatch 11/07/16 11/07/16 11/07/16 12:17 17:05 17:58 WBC RBC Hgb Hct MCV RDW Plt Count Lymph % (Auto) [place] % (Auto) [place] # Seg Neutrophils % Seg Neuts % (Manual) Lymphocytes % (Manual) Monocytes % (Manual) Basophils % (Manual) Nucleated RBC % Seg Neutrophils # Seg Neutrophils # Man Lymphocytes # (Manual) Monocytes # (Manual) Eosinophils # (Manual) Basophils # (Manual) PT INR APTT Heparin Anti-Xa Level 0.87 H POC ABG pH 7.324 L POC ABG pCO2 POC ABG pO2 Sodium Potassium Chloride Carbon Dioxide BUN Creatinine Glucose POC Glucose 158 H Calcium Phosphorus Magnesium AST Alkaline Phosphatase Troponin T C-Reactive Protein Total Protein Albumin Triglycerides HDL Cholesterol Lipase Vitamin B12 TSH Urine WBC (Auto) Urine Chloride Urine Total Protein Vancomycin Trough Crossmatch 11/07/16 11/07/16 11/07/16 23:26 Unknown Unknown WBC 12.3 H RBC 2.96 L Hgb 9.1 L Hct 27.9 L MCV RDW 16.8 H Plt Count Lymph % (Auto) [place] % (Auto) [place] # Seg Neutrophils % Seg Neuts % (Manual) 80.0 H Lymphocytes % (Manual) 7.0 L Monocytes % (Manual) Basophils % (Manual) Nucleated RBC % Seg Neutrophils # Seg Neutrophils # Man 9.8 H Lymphocytes # (Manual) 0.9 L Monocytes # (Manual) Eosinophils # (Manual) Basophils # (Manual) PT INR APTT Heparin Anti-Xa Level POC ABG pH POC ABG pCO2 POC ABG pO2 Sodium Potassium Chloride Carbon Dioxide 19 L BUN Creatinine Glucose 106 H POC Glucose 130 H Calcium 6.9 L Phosphorus Magnesium AST Alkaline Phosphatase Troponin T C-Reactive Protein Total Protein Albumin Triglycerides HDL Cholesterol Lipase Vitamin B12 TSH Urine WBC (Auto) Urine Chloride Urine Total Protein Vancomycin Trough Crossmatch 11/07/16 11/08/16 11/08/16 Unknown 05:14 05:20 WBC 12.4 H RBC 3.04 L Hgb 9.2 L Hct 28.8 L MCV RDW 16.6 H Plt Count Lymph % (Auto) [place] % (Auto) [place] # Seg Neutrophils % Seg Neuts % (Manual) 77.0 H Lymphocytes % (Manual) 5.0 L Monocytes % (Manual) Basophils % (Manual) 2.0 H Nucleated RBC % Seg Neutrophils # Seg Neutrophils # Man 9.5 H Lymphocytes # (Manual) 0.6 L Monocytes # (Manual) Eosinophils # (Manual) Basophils # (Manual) 0.2 H PT INR APTT Heparin Anti-Xa Level 0.90 H POC ABG pH POC ABG pCO2 POC ABG pO2 Sodium Potassium Chloride Carbon Dioxide BUN Creatinine Glucose POC Glucose 204 H Calcium Phosphorus Magnesium AST Alkaline Phosphatase Troponin T C-Reactive Protein Total Protein Albumin Triglycerides HDL Cholesterol Lipase Vitamin B12 TSH Urine WBC (Auto) Urine Chloride Urine Total Protein Vancomycin Trough Crossmatch 11/08/16 11/08/16 11/08/16 05:20 12:10 13:10 WBC RBC Hgb Hct MCV RDW Plt Count Lymph % (Auto) [place] % (Auto) [place] # Seg Neutrophils % Seg Neuts % (Manual) Lymphocytes % (Manual) Monocytes % (Manual) Basophils % (Manual) Nucleated RBC % Seg Neutrophils # Seg Neutrophils # Man Lymphocytes # (Manual) Monocytes # (Manual) Eosinophils # (Manual) Basophils # (Manual) PT INR APTT Heparin Anti-Xa Level POC ABG pH POC ABG pCO2 33.7 L POC ABG pO2 Sodium 136 L Potassium Chloride Carbon Dioxide 19 L BUN Creatinine Glucose 192 H POC Glucose 180 H Calcium 7.1 L Phosphorus Magnesium AST Alkaline Phosphatase Troponin T C-Reactive Protein Total Protein Albumin Triglycerides HDL Cholesterol Lipase Vitamin B12 TSH Urine WBC (Auto) Urine Chloride Urine Total Protein Vancomycin Trough Crossmatch 11/08/16 11/08/16 11/08/16 17:26 20:45 23:34 WBC RBC Hgb Hct MCV RDW Plt Count Lymph % (Auto) [place] % (Auto) [place] # Seg Neutrophils % Seg Neuts % (Manual) Lymphocytes % (Manual) Monocytes % (Manual) Basophils % (Manual) Nucleated RBC % Seg Neutrophils # Seg Neutrophils # Man Lymphocytes # (Manual) Monocytes # (Manual) Eosinophils # (Manual) Basophils # (Manual) PT INR APTT Heparin Anti-Xa Level POC ABG pH POC ABG pCO2 POC ABG pO2 Sodium Potassium Chloride Carbon Dioxide BUN Creatinine Glucose POC Glucose 187 H 178 H Calcium Phosphorus Magnesium AST Alkaline Phosphatase Troponin T C-Reactive Protein Total Protein Albumin Triglycerides HDL Cholesterol Lipase Vitamin B12 TSH Urine WBC (Auto) Urine Chloride Urine Total Protein Vancomycin Trough 35.4 H Crossmatch 11/09/16 11/09/16 11/09/16 05:30 05:30 05:59 WBC 11.5 H RBC 2.96 L Hgb 9.2 L Hct 28.2 L MCV RDW 16.4 H Plt Count Lymph % (Auto) [place] % (Auto) [place] # Seg Neutrophils % Seg Neuts % (Manual) 76.0 H Lymphocytes % (Manual) 2.0 L Monocytes % (Manual) Basophils % (Manual) Nucleated RBC % Seg Neutrophils # Seg Neutrophils # Man 8.7 H Lymphocytes # (Manual) 0.2 L Monocytes # (Manual) Eosinophils # (Manual) Basophils # (Manual) PT INR APTT Heparin Anti-Xa Level POC ABG pH POC ABG pCO2 POC ABG pO2 Sodium Potassium 3.4 L Chloride 107.6 H Carbon Dioxide 19 L BUN Creatinine 0.6 L Glucose 207 H POC Glucose 263 H Calcium 7.3 L Phosphorus Magnesium AST Alkaline Phosphatase Troponin T C-Reactive Protein Total Protein Albumin Triglycerides HDL Cholesterol Lipase Vitamin B12 TSH Urine WBC (Auto) Urine Chloride Urine Total Protein Vancomycin Trough Crossmatch 11/09/16 11/09/16 11/09/16 11:49 15:24 18:04 WBC RBC Hgb Hct MCV RDW Plt Count Lymph % (Auto) [place] % (Auto) [place] # Seg Neutrophils % Seg Neuts % (Manual) Lymphocytes % (Manual) Monocytes % (Manual) Basophils % (Manual) Nucleated RBC % Seg Neutrophils # Seg Neutrophils # Man Lymphocytes # (Manual) Monocytes # (Manual) Eosinophils # (Manual) Basophils # (Manual) PT INR APTT Heparin Anti-Xa Level POC ABG pH POC ABG pCO2 33.8 L POC ABG pO2 131 H Sodium Potassium Chloride Carbon Dioxide BUN Creatinine Glucose POC Glucose 269 H 242 H Calcium Phosphorus Magnesium AST Alkaline Phosphatase Troponin T C-Reactive Protein Total Protein Albumin Triglycerides HDL Cholesterol Lipase Vitamin B12 TSH Urine WBC (Auto) Urine Chloride Urine Total Protein Vancomycin Trough Crossmatch 11/09/16 11/10/16 11/10/16 22:57 04:30 04:30 WBC 15.7 H RBC 3.17 L Hgb 9.7 L Hct 30.2 L MCV RDW 16.2 H Plt Count Lymph % (Auto) [place] % (Auto) [place] # Seg Neutrophils % Seg Neuts % (Manual) Lymphocytes % (Manual) Monocytes % (Manual) Basophils % (Manual) Nucleated RBC % Seg Neutrophils # Seg Neutrophils # Man 8.5 H Lymphocytes # (Manual) Monocytes # (Manual) Eosinophils # (Manual) 0.5 H Basophils # (Manual) PT INR APTT Heparin Anti-Xa Level POC ABG pH POC ABG pCO2 POC ABG pO2 Sodium Potassium Chloride Carbon Dioxide 19 L BUN Creatinine 0.6 L Glucose 199 H POC Glucose 239 H Calcium 7.8 L Phosphorus Magnesium AST Alkaline Phosphatase Troponin T C-Reactive Protein Total Protein Albumin Triglycerides HDL Cholesterol Lipase Vitamin B12 TSH Urine WBC (Auto) Urine Chloride Urine Total Protein Vancomycin Trough Crossmatch 11/10/16 11/10/16 11/10/16 04:30 11:32 16:00 WBC RBC Hgb Hct MCV RDW Plt Count Lymph % (Auto) [place] % (Auto) [place] # Seg Neutrophils % Seg Neuts % (Manual) Lymphocytes % (Manual) Monocytes % (Manual) Basophils % (Manual) Nucleated RBC % Seg Neutrophils # Seg Neutrophils # Man Lymphocytes # (Manual) Monocytes # (Manual) Eosinophils # (Manual) Basophils # (Manual) PT INR APTT Heparin Anti-Xa Level 1.09 H < 0.10 L POC ABG pH POC ABG pCO2 POC ABG pO2 Sodium Potassium Chloride Carbon Dioxide BUN Creatinine Glucose POC Glucose 211 H Calcium Phosphorus Magnesium AST Alkaline Phosphatase Troponin T C-Reactive Protein Total Protein Albumin Triglycerides HDL Cholesterol Lipase Vitamin B12 TSH Urine WBC (Auto) Urine Chloride Urine Total Protein Vancomycin Trough Crossmatch 11/10/16 11/10/16 11/10/16 17:39 18:00 23:06 WBC RBC Hgb Hct MCV RDW Plt Count Lymph % (Auto) [place] % (Auto) [place] # Seg Neutrophils % Seg Neuts % (Manual) Lymphocytes % (Manual) Monocytes % (Manual) Basophils % (Manual) Nucleated RBC % Seg Neutrophils # Seg Neutrophils # Man Lymphocytes # (Manual) Monocytes # (Manual) Eosinophils # (Manual) Basophils # (Manual) PT INR APTT Heparin Anti-Xa Level 0.85 H POC ABG pH POC ABG pCO2 POC ABG pO2 Sodium Potassium Chloride Carbon Dioxide BUN Creatinine Glucose POC Glucose 249 H 220 H Calcium Phosphorus Magnesium AST Alkaline Phosphatase Troponin T C-Reactive Protein Total Protein Albumin Triglycerides HDL Cholesterol Lipase Vitamin B12 TSH Urine WBC (Auto) Urine Chloride Urine Total Protein Vancomycin Trough Crossmatch 11/11/16 11/11/16 11/11/16 05:56 06:15 06:15 WBC 13.3 H RBC 2.87 L Hgb 8.7 L Hct 27.2 L MCV RDW 16.4 H Plt Count Lymph % (Auto) [place] % (Auto) [place] # 0.9 H Seg Neutrophils % 78.9 H Seg Neuts % (Manual) Lymphocytes % (Manual) Monocytes % (Manual) Basophils % (Manual) Nucleated RBC % Seg Neutrophils # 10.5 H Seg Neutrophils # Man Lymphocytes # (Manual) Monocytes # (Manual) Eosinophils # (Manual) Basophils # (Manual) PT INR APTT Heparin Anti-Xa Level POC ABG pH POC ABG pCO2 POC ABG pO2 Sodium Potassium 3.2 L Chloride Carbon Dioxide 19 L BUN Creatinine Glucose POC Glucose 117 H Calcium 7.6 L Phosphorus Magnesium AST Alkaline Phosphatase Troponin T C-Reactive Protein Total Protein Albumin Triglycerides HDL Cholesterol Lipase Vitamin B12 TSH Urine WBC (Auto) Urine Chloride Urine Total Protein Vancomycin Trough Crossmatch 11/11/16 11/11/16 11/11/16 12:26 16:58 17:33 WBC RBC Hgb Hct MCV RDW Plt Count Lymph % (Auto) [place] % (Auto) [place] # Seg Neutrophils % Seg Neuts % (Manual) Lymphocytes % (Manual) Monocytes % (Manual) Basophils % (Manual) Nucleated RBC % Seg Neutrophils # Seg Neutrophils # Man Lymphocytes # (Manual) Monocytes # (Manual) Eosinophils # (Manual) Basophils # (Manual) PT INR APTT Heparin Anti-Xa Level < 0.10 L POC ABG pH POC ABG pCO2 POC ABG pO2 Sodium Potassium Chloride Carbon Dioxide BUN Creatinine Glucose POC Glucose 114 H 161 H Calcium Phosphorus Magnesium AST Alkaline Phosphatase Troponin T C-Reactive Protein Total Protein Albumin Triglycerides HDL Cholesterol Lipase Vitamin B12 TSH Urine WBC (Auto) Urine Chloride Urine Total Protein Vancomycin Trough Crossmatch 11/12/16 11/12/16 11/12/16 05:00 05:00 05:00 WBC 12.8 H RBC 2.75 L Hgb 8.4 L Hct 25.7 L MCV RDW 16.3 H Plt Count Lymph % (Auto) [place] % (Auto) 7.5 H [place] # 1.0 H Seg Neutrophils % 78.0 H Seg Neuts % (Manual) Lymphocytes % (Manual) Monocytes % (Manual) Basophils % (Manual) Nucleated RBC % Seg Neutrophils # 10.0 H Seg Neutrophils # Man Lymphocytes # (Manual) Monocytes # (Manual) Eosinophils # (Manual) Basophils # (Manual) PT INR APTT Heparin Anti-Xa Level 0.87 H POC ABG pH POC ABG pCO2 POC ABG pO2 Sodium Potassium 3.4 L Chloride Carbon Dioxide 19 L BUN Creatinine Glucose 112 H POC Glucose Calcium 7.7 L Phosphorus Magnesium AST Alkaline Phosphatase Troponin T C-Reactive Protein Total Protein Albumin Triglycerides HDL Cholesterol Lipase Vitamin B12 TSH Urine WBC (Auto) Urine Chloride Urine Total Protein Vancomycin Trough Crossmatch 11/12/16 11/12/16 11/13/16 11:18 16:40 00:44 WBC RBC Hgb Hct MCV RDW Plt Count Lymph % (Auto) [place] % (Auto) [place] # Seg Neutrophils % Seg Neuts % (Manual) Lymphocytes % (Manual) Monocytes % (Manual) Basophils % (Manual) Nucleated RBC % Seg Neutrophils # Seg Neutrophils # Man Lymphocytes # (Manual) Monocytes # (Manual) Eosinophils # (Manual) Basophils # (Manual) PT INR APTT Heparin Anti-Xa Level POC ABG pH POC ABG pCO2 POC ABG pO2 Sodium Potassium Chloride Carbon Dioxide BUN Creatinine Glucose POC Glucose 135 H 139 H 169 H Calcium Phosphorus Magnesium AST Alkaline Phosphatase Troponin T C-Reactive Protein Total Protein Albumin Triglycerides HDL Cholesterol Lipase Vitamin B12 TSH Urine WBC (Auto) Urine Chloride Urine Total Protein Vancomycin Trough Crossmatch 11/13/16 11/13/16 11/13/16 05:28 05:28 06:02 WBC 12.7 H RBC 2.93 L Hgb 9.0 L Hct 27.6 L MCV RDW 16.1 H Plt Count Lymph % (Auto) [place] % (Auto) [place] # Seg Neutrophils % 78.6 H Seg Neuts % (Manual) Lymphocytes % (Manual) Monocytes % (Manual) Basophils % (Manual) Nucleated RBC % Seg Neutrophils # 10.0 H Seg Neutrophils # Man Lymphocytes # (Manual) Monocytes # (Manual) Eosinophils # (Manual) Basophils # (Manual) PT INR APTT Heparin Anti-Xa Level POC ABG pH POC ABG pCO2 POC ABG pO2 Sodium Potassium Chloride Carbon Dioxide 17 L BUN Creatinine Glucose 116 H POC Glucose 112 H Calcium 7.8 L Phosphorus Magnesium AST Alkaline Phosphatase Troponin T C-Reactive Protein Total Protein Albumin Triglycerides HDL Cholesterol Lipase Vitamin B12 TSH Urine WBC (Auto) Urine Chloride Urine Total Protein Vancomycin Trough Crossmatch 0311/13/16 11/13/16 12:34 16:55 17:00 WBC RBC Hgb Hct MCV RDW Plt Count Lymph % (Auto) [place] % (Auto) [place] # Seg Neutrophils % Seg Neuts % (Manual) Lymphocytes % (Manual) Monocytes % (Manual) Basophils % (Manual) Nucleated RBC % Seg Neutrophils # Seg Neutrophils # Man Lymphocytes # (Manual) Monocytes # (Manual) Eosinophils # (Manual) Basophils # (Manual) PT INR APTT Heparin Anti-Xa Level POC ABG pH POC ABG pCO2 22.9 L POC ABG pO2 53 L Sodium Potassium Chloride Carbon Dioxide BUN Creatinine Glucose POC Glucose 109 H 122 H Calcium Phosphorus Magnesium AST Alkaline Phosphatase Troponin T C-Reactive Protein Total Protein Albumin Triglycerides HDL Cholesterol Lipase Vitamin B12 TSH Urine WBC (Auto) Urine Chloride Urine Total Protein Vancomycin Trough Crossmatch 11/13/16 11/14/16 11/14/16 23:33 04:42 04:42 WBC 11.7 H RBC 3.01 L Hgb 9.3 L Hct 28.9 L MCV RDW 16.5 H Plt Count Lymph % (Auto) [place] % (Auto) [place] # Seg Neutrophils % Seg Neuts % (Manual) 79.0 H Lymphocytes % (Manual) 10.0 L Monocytes % (Manual) Basophils % (Manual) Nucleated RBC % Seg Neutrophils # Seg Neutrophils # Man 9.2 H Lymphocytes # (Manual) Monocytes # (Manual) Eosinophils # (Manual) Basophils # (Manual) PT INR APTT Heparin Anti-Xa Level POC ABG pH POC ABG pCO2 POC ABG pO2 Sodium Potassium Chloride Carbon Dioxide 16 L BUN Creatinine Glucose 102 H POC Glucose 173 H Calcium 7.5 L Phosphorus Magnesium AST Alkaline Phosphatase Troponin T C-Reactive Protein Total Protein Albumin Triglycerides HDL Cholesterol Lipase Vitamin B12 TSH Urine WBC (Auto) Urine Chloride Urine Total Protein Vancomycin Trough Crossmatch 11/14/16 11/14/16 11/14/16 11:43 16:57 19:45 WBC RBC Hgb Hct MCV RDW Plt Count Lymph % (Auto) [place] % (Auto) [place] # Seg Neutrophils % Seg Neuts % (Manual) Lymphocytes % (Manual) Monocytes % (Manual) Basophils % (Manual) Nucleated RBC % Seg Neutrophils # Seg Neutrophils # Man Lymphocytes # (Manual) Monocytes # (Manual) Eosinophils # (Manual) Basophils # (Manual) PT INR APTT Heparin Anti-Xa Level 0.71 H POC ABG pH POC ABG pCO2 POC ABG pO2 Sodium Potassium Chloride Carbon Dioxide BUN Creatinine Glucose POC Glucose 130 H 209 H Calcium Phosphorus Magnesium AST Alkaline Phosphatase Troponin T C-Reactive Protein Total Protein Albumin Triglycerides HDL Cholesterol Lipase Vitamin B12 TSH Urine WBC (Auto) Urine Chloride Urine Total Protein Vancomycin Trough Crossmatch 11/14/16 11/15/16 11/16/16 23:43 23:47 06:11 WBC RBC Hgb Hct MCV RDW Plt Count Lymph % (Auto) [place] % (Auto) [place] # Seg Neutrophils % Seg Neuts % (Manual) Lymphocytes % (Manual) Monocytes % (Manual) Basophils % (Manual) Nucleated RBC % Seg Neutrophils # Seg Neutrophils # Man Lymphocytes # (Manual) Monocytes # (Manual) Eosinophils # (Manual) Basophils # (Manual) PT INR APTT Heparin Anti-Xa Level POC ABG pH POC ABG pCO2 POC ABG pO2 Sodium Potassium Chloride Carbon Dioxide BUN Creatinine Glucose POC Glucose 167 H 114 H 125 H Calcium Phosphorus Magnesium AST Alkaline Phosphatase Troponin T C-Reactive Protein Total Protein Albumin Triglycerides HDL Cholesterol Lipase Vitamin B12 TSH Urine WBC (Auto) Urine Chloride Urine Total Protein Vancomycin Trough Crossmatch 11/16/16 11/16/16 11/16/16 09:05 09:05 09:05 WBC RBC 2.53 L Hgb 8.0 L Hct 23.7 L MCV RDW 15.9 H Plt Count Lymph % (Auto) [place] % (Auto) [place] # Seg Neutrophils % Seg Neuts % (Manual) Lymphocytes % (Manual) Monocytes % (Manual) Basophils % (Manual) Nucleated RBC % Seg Neutrophils # Seg Neutrophils # Man Lymphocytes # (Manual) Monocytes # (Manual) Eosinophils # (Manual) Basophils # (Manual) PT INR APTT Heparin Anti-Xa Level POC ABG pH POC ABG pCO2 POC ABG pO2 Sodium Potassium 2.5 L* D Chloride Carbon Dioxide 19 L BUN 5 L Creatinine Glucose 103 H POC Glucose Calcium 6.6 L Phosphorus Magnesium 1.3 L AST Alkaline Phosphatase Troponin T C-Reactive Protein Total Protein Albumin Triglycerides HDL Cholesterol Lipase Vitamin B12 TSH Urine WBC (Auto) Urine Chloride Urine Total Protein Vancomycin Trough Crossmatch 11/16/16 11/16/16 11/16/16 12:15 13:00 14:45 WBC RBC Hgb Hct MCV RDW Plt Count Lymph % (Auto) [place] % (Auto) [place] # Seg Neutrophils % Seg Neuts % (Manual) Lymphocytes % (Manual) Monocytes % (Manual) Basophils % (Manual) Nucleated RBC % Seg Neutrophils # Seg Neutrophils # Man Lymphocytes # (Manual) Monocytes # (Manual) Eosinophils # (Manual) Basophils # (Manual) PT 19.1 H INR 1.61 H APTT Heparin Anti-Xa Level POC ABG pH 7.479 H POC ABG pCO2 23.6 L POC ABG pO2 Sodium Potassium Chloride Carbon Dioxide BUN Creatinine Glucose POC Glucose 129 H Calcium Phosphorus Magnesium AST Alkaline Phosphatase Troponin T C-Reactive Protein Total Protein Albumin Triglycerides HDL Cholesterol Lipase Vitamin B12 TSH Urine WBC (Auto) Urine Chloride Urine Total Protein Vancomycin Trough Crossmatch 11/16/16 11/17/16 11/17/16 17:43 00:30 04:32 WBC RBC Hgb Hct MCV RDW Plt Count Lymph % (Auto) [place] % (Auto) [place] # Seg Neutrophils % Seg Neuts % (Manual) Lymphocytes % (Manual) Monocytes % (Manual) Basophils % (Manual) Nucleated RBC % Seg Neutrophils # Seg Neutrophils # Man Lymphocytes # (Manual) Monocytes # (Manual) Eosinophils # (Manual) Basophils # (Manual) PT INR APTT Heparin Anti-Xa Level POC ABG pH POC ABG pCO2 POC ABG pO2 Sodium Potassium Chloride Carbon Dioxide 18 L BUN Creatinine Glucose 127 H POC Glucose 224 H 259 H Calcium 7.5 L Phosphorus Magnesium AST Alkaline Phosphatase Troponin T C-Reactive Protein Total Protein Albumin Triglycerides HDL Cholesterol Lipase Vitamin B12 TSH Urine WBC (Auto) Urine Chloride Urine Total Protein Vancomycin Trough Crossmatch 11/17/16 11/17/16 11/17/16 05:42 08:34 12:19 WBC RBC 2.85 L Hgb 8.9 L Hct 26.5 L MCV RDW 16.2 H Plt Count Lymph % (Auto) [place] % (Auto) [place] # Seg Neutrophils % Seg Neuts % (Manual) Lymphocytes % (Manual) Monocytes % (Manual) Basophils % (Manual) Nucleated RBC % Seg Neutrophils # Seg Neutrophils # Man Lymphocytes # (Manual) Monocytes # (Manual) Eosinophils # (Manual) Basophils # (Manual) PT INR APTT Heparin Anti-Xa Level POC ABG pH POC ABG pCO2 POC ABG pO2 Sodium Potassium Chloride Carbon Dioxide BUN Creatinine Glucose POC Glucose 118 H 264 H Calcium Phosphorus Magnesium AST Alkaline Phosphatase Troponin T C-Reactive Protein Total Protein Albumin Triglycerides HDL Cholesterol Lipase Vitamin B12 TSH Urine WBC (Auto) Urine Chloride Urine Total Protein Vancomycin Trough Crossmatch 11/17/16 11/17/16 11/18/16 16:52 23:44 04:53 WBC RBC Hgb Hct MCV RDW Plt Count Lymph % (Auto) [place] % (Auto) [place] # Seg Neutrophils % Seg Neuts % (Manual) Lymphocytes % (Manual) Monocytes % (Manual) Basophils % (Manual) Nucleated RBC % Seg Neutrophils # Seg Neutrophils # Man Lymphocytes # (Manual) Monocytes # (Manual) Eosinophils # (Manual) Basophils # (Manual) PT INR APTT Heparin Anti-Xa Level POC ABG pH POC ABG pCO2 POC ABG pO2 Sodium Potassium Chloride Carbon Dioxide BUN Creatinine Glucose POC Glucose 256 H 109 H 287 H Calcium Phosphorus Magnesium AST Alkaline Phosphatase Troponin T C-Reactive Protein Total Protein Albumin Triglycerides HDL Cholesterol Lipase Vitamin B12 TSH Urine WBC (Auto) Urine Chloride Urine Total Protein Vancomycin Trough Crossmatch 11/18/16 11/18/16 11/18/16 05:31 05:45 05:45 WBC RBC Hgb Hct MCV RDW Plt Count Lymph % (Auto) [place] % (Auto) [place] # Seg Neutrophils % Seg Neuts % (Manual) Lymphocytes % (Manual) Monocytes % (Manual) Basophils % (Manual) Nucleated RBC % Seg Neutrophils # Seg Neutrophils # Man Lymphocytes # (Manual) Monocytes # (Manual) Eosinophils # (Manual) Basophils # (Manual) PT 20.1 H INR 1.72 H APTT 131.1 H* Heparin Anti-Xa Level 0.18 L POC ABG pH 7.252 L POC ABG pCO2 32.0 L POC ABG pO2 Sodium Potassium Chloride 107.1 H Carbon Dioxide 17 L BUN Creatinine Glucose 284 H POC Glucose Calcium 7.2 L Phosphorus Magnesium AST Alkaline Phosphatase Troponin T C-Reactive Protein Total Protein 5.5 L Albumin 2.1 L Triglycerides HDL Cholesterol Lipase Vitamin B12 TSH Urine WBC (Auto) Urine Chloride Urine Total Protein Vancomycin Trough Crossmatch 11/18/16 11/18/16 11/18/16 05:45 09:17 12:06 WBC 13.3 H RBC 3.07 L Hgb 9.2 L Hct 29.5 L MCV RDW 16.9 H Plt Count Lymph % (Auto) 11.0 L Sweet Grass % (Auto) Sweet Grass # Seg Neutrophils % 82.9 H Seg Neuts % (Manual) Lymphocytes % (Manual) Monocytes % (Manual) Basophils % (Manual) Nucleated RBC % Seg Neutrophils # 11.0 H Seg Neutrophils # Man Lymphocytes # (Manual) Monocytes # (Manual) Eosinophils # (Manual) Basophils # (Manual) PT INR APTT Heparin Anti-Xa Level POC ABG pH POC ABG pCO2 24.3 L POC ABG pO2 79 L Sodium Potassium Chloride Carbon Dioxide BUN Creatinine Glucose POC Glucose 433 H Calcium Phosphorus Magnesium AST Alkaline Phosphatase Troponin T C-Reactive Protein Total Protein Albumin Triglycerides HDL Cholesterol Lipase Vitamin B12 TSH Urine WBC (Auto) Urine Chloride Urine Total Protein Vancomycin Trough Crossmatch 11/18/16 11/18/16 11/18/16 12:09 13:00 17:22 WBC 12.6 H RBC 2.79 L Hgb 8.6 L Hct 26.6 L MCV RDW 17.0 H Plt Count Lymph % (Auto) [place] % (Auto) Sweet [place] # Seg Neutrophils % Seg Neuts % (Manual) 90.0 H Lymphocytes % (Manual) 8.0 L Monocytes % (Manual) Basophils % (Manual) Nucleated RBC % Seg Neutrophils # Seg Neutrophils # Man 11.3 H Lymphocytes # (Manual) 1.0 L Monocytes # (Manual) Eosinophils # (Manual) Basophils # (Manual) PT INR APTT Heparin Anti-Xa Level POC ABG pH POC ABG pCO2 POC ABG pO2 Sodium Potassium Chloride Carbon Dioxide BUN Creatinine Glucose POC Glucose 429 H 297 H Calcium Phosphorus Magnesium AST Alkaline Phosphatase Troponin T C-Reactive Protein Total Protein Albumin Triglycerides HDL Cholesterol Lipase Vitamin B12 TSH Urine WBC (Auto) Urine Chloride Urine Total Protein Vancomycin Trough Crossmatch 11/18/16 11/19/16 11/19/16 23:27 04:30 04:30 WBC RBC 2.92 L Hgb 8.8 L Hct 27.0 L MCV RDW 16.6 H Plt Count Lymph % (Auto) [place] % (Auto) [place] # Seg Neutrophils % Seg Neuts % (Manual) Lymphocytes % (Manual) Monocytes % (Manual) Basophils % (Manual) Nucleated RBC % Seg Neutrophils # Seg Neutrophils # Man Lymphocytes # (Manual) Monocytes # (Manual) Eosinophils # (Manual) Basophils # (Manual) PT INR APTT Heparin Anti-Xa Level POC ABG pH POC ABG pCO2 POC ABG pO2 Sodium Potassium 3.0 L Chloride 107.9 H Carbon Dioxide 20 L BUN Creatinine Glucose 231 H POC Glucose 268 H Calcium 7.1 L Phosphorus Magnesium AST Alkaline Phosphatase Troponin T C-Reactive Protein Total Protein 5.5 L Albumin 2.1 L Triglycerides HDL Cholesterol Lipase Vitamin B12 TSH Urine WBC (Auto) Urine Chloride Urine Total Protein Vancomycin Trough Crossmatch 11/19/16 11/19/16 11/19/16 04:40 06:40 10:00 WBC RBC Hgb Hct MCV RDW Plt Count Lymph % (Auto) [place] % (Auto) [place] # Seg Neutrophils % Seg Neuts % (Manual) Lymphocytes % (Manual) Monocytes % (Manual) Basophils % (Manual) Nucleated RBC % Seg Neutrophils # Seg Neutrophils # Man Lymphocytes # (Manual) Monocytes # (Manual) Eosinophils # (Manual) Basophils # (Manual) PT INR APTT Heparin Anti-Xa Level POC ABG pH POC ABG pCO2 POC ABG pO2 Sodium Potassium Chloride Carbon Dioxide BUN Creatinine Glucose POC Glucose 267 H 244 H Calcium Phosphorus Magnesium 1.4 L AST Alkaline Phosphatase Troponin T C-Reactive Protein Total Protein Albumin Triglycerides HDL Cholesterol Lipase Vitamin B12 TSH Urine WBC (Auto) Urine Chloride Urine Total Protein Vancomycin Trough Crossmatch 11/19/16 11/19/16 11/19/16 12:08 18:10 23:40 WBC RBC Hgb Hct MCV RDW Plt Count Lymph % (Auto) [place] % (Auto) [place] # Seg Neutrophils % Seg Neuts % (Manual) Lymphocytes % (Manual) Monocytes % (Manual) Basophils % (Manual) Nucleated RBC % Seg Neutrophils # Seg Neutrophils # Man Lymphocytes # (Manual) Monocytes # (Manual) Eosinophils # (Manual) Basophils # (Manual) PT INR APTT Heparin Anti-Xa Level POC ABG pH POC ABG pCO2 POC ABG pO2 Sodium Potassium Chloride Carbon Dioxide BUN Creatinine Glucose POC Glucose 254 H 265 H 197 H Calcium Phosphorus Magnesium AST Alkaline Phosphatase Troponin T C-Reactive Protein Total Protein Albumin Triglycerides HDL Cholesterol Lipase Vitamin B12 TSH Urine WBC (Auto) Urine Chloride Urine Total Protein Vancomycin Trough Crossmatch 11/20/16 11/20/16 11/20/16 05:00 05:44 11:33 WBC RBC Hgb Hct MCV RDW Plt Count Lymph % (Auto) [place] % (Auto) [place] # Seg Neutrophils % Seg Neuts % (Manual) Lymphocytes % (Manual) Monocytes % (Manual) Basophils % (Manual) Nucleated RBC % Seg Neutrophils # Seg Neutrophils # Man Lymphocytes # (Manual) Monocytes # (Manual) Eosinophils # (Manual) Basophils # (Manual) PT INR APTT Heparin Anti-Xa Level POC ABG pH POC ABG pCO2 POC ABG pO2 Sodium Potassium 3.4 L Chloride 107.4 H Carbon Dioxide 20 L BUN Creatinine Glucose 140 H POC Glucose 163 H 108 H Calcium 7.2 L Phosphorus Magnesium AST Alkaline Phosphatase Troponin T C-Reactive Protein Total Protein Albumin Triglycerides HDL Cholesterol Lipase Vitamin B12 TSH Urine WBC (Auto) Urine Chloride Urine Total Protein Vancomycin Trough Crossmatch 11/20/16 11/20/16 11/20/16 13:03 16:45 23:26 WBC RBC Hgb Hct MCV RDW Plt Count Lymph % (Auto) [place] % (Auto) [place] # Seg Neutrophils % Seg Neuts % (Manual) Lymphocytes % (Manual) Monocytes % (Manual) Basophils % (Manual) Nucleated RBC % Seg Neutrophils # Seg Neutrophils # Man Lymphocytes # (Manual) Monocytes # (Manual) Eosinophils # (Manual) Basophils # (Manual) PT INR APTT Heparin Anti-Xa Level POC ABG pH POC ABG pCO2 POC ABG pO2 Sodium Potassium Chloride Carbon Dioxide BUN Creatinine Glucose POC Glucose 113 H 168 H Calcium Phosphorus Magnesium AST Alkaline Phosphatase Troponin T C-Reactive Protein Total Protein Albumin Triglycerides HDL Cholesterol Lipase Vitamin B12 TSH Urine WBC (Auto) Urine Chloride Urine Total Protein Vancomycin Trough 45.8 H Crossmatch 11/21/16 11/21/16 11/21/16 05:00 05:27 09:50 WBC RBC Hgb Hct MCV RDW Plt Count Lymph % (Auto) [place] % (Auto) [place] # Seg Neutrophils % Seg Neuts % (Manual) Lymphocytes % (Manual) Monocytes % (Manual) Basophils % (Manual) Nucleated RBC % Seg Neutrophils # Seg Neutrophils # Man Lymphocytes # (Manual) Monocytes # (Manual) Eosinophils # (Manual) Basophils # (Manual) PT INR APTT Heparin Anti-Xa Level POC ABG pH POC ABG pCO2 POC ABG pO2 Sodium 133 L D Potassium Chloride Carbon Dioxide 19 L BUN Creatinine Glucose 280 H POC Glucose 222 H Calcium 7.4 L Phosphorus Magnesium AST Alkaline Phosphatase Troponin T C-Reactive Protein Total Protein Albumin Triglycerides HDL Cholesterol Lipase Vitamin B12 TSH Urine WBC (Auto) Urine Chloride Urine Total Protein Vancomycin Trough 30.4 H Crossmatch 11/21/16 11/21/16 11/21/16 12:36 17:17 18:34 WBC RBC Hgb Hct MCV RDW Plt Count Lymph % (Auto) [place] % (Auto) [place] # Seg Neutrophils % Seg Neuts % (Manual) Lymphocytes % (Manual) Monocytes % (Manual) Basophils % (Manual) Nucleated RBC % Seg Neutrophils # Seg Neutrophils # Man Lymphocytes # (Manual) Monocytes # (Manual) Eosinophils # (Manual) Basophils # (Manual) PT INR APTT Heparin Anti-Xa Level POC ABG pH POC ABG pCO2 POC ABG pO2 Sodium Potassium Chloride Carbon Dioxide BUN Creatinine Glucose POC Glucose 306 H 339 H 318 H Calcium Phosphorus Magnesium AST Alkaline Phosphatase Troponin T C-Reactive Protein Total Protein Albumin Triglycerides HDL Cholesterol Lipase Vitamin B12 TSH Urine WBC (Auto) Urine Chloride Urine Total Protein Vancomycin Trough Crossmatch 11/21/16 11/22/16 11/22/16 23:16 07:19 11:49 WBC 11.1 H RBC 2.60 L Hgb 7.8 L Hct 24.4 L MCV RDW 16.3 H Plt Count Lymph % (Auto) [place] % (Auto) Sweet [place] # Seg Neutrophils % 76.8 H Seg Neuts % (Manual) Lymphocytes % (Manual) Monocytes % (Manual) Basophils % (Manual) Nucleated RBC % Seg Neutrophils # 8.5 H Seg Neutrophils # Man Lymphocytes # (Manual) Monocytes # (Manual) Eosinophils # (Manual) Basophils # (Manual) PT INR APTT Heparin Anti-Xa Level POC ABG pH POC ABG pCO2 POC ABG pO2 Sodium Potassium Chloride Carbon Dioxide BUN Creatinine Glucose POC Glucose 286 H 371 H Calcium Phosphorus Magnesium AST Alkaline Phosphatase Troponin T C-Reactive Protein Total Protein Albumin Triglycerides HDL Cholesterol Lipase Vitamin B12 TSH Urine WBC (Auto) Urine Chloride Urine Total Protein Vancomycin Trough Crossmatch 11/22/16 11/22/16 11/22/16 11:50 11:50 17:34 WBC RBC Hgb Hct MCV RDW Plt Count Lymph % (Auto) [place] % (Auto) [place] # Seg Neutrophils % Seg Neuts % (Manual) Lymphocytes % (Manual) Monocytes % (Manual) Basophils % (Manual) Nucleated RBC % Seg Neutrophils # Seg Neutrophils # Man Lymphocytes # (Manual) Monocytes # (Manual) Eosinophils # (Manual) Basophils # (Manual) PT INR APTT Heparin Anti-Xa Level POC ABG pH POC ABG pCO2 POC ABG pO2 Sodium 130 L Potassium Chloride Carbon Dioxide 19 L BUN 20 H Creatinine Glucose 266 H POC Glucose 262 H 284 H Calcium 7.2 L Phosphorus Magnesium AST Alkaline Phosphatase Troponin T C-Reactive Protein Total Protein Albumin Triglycerides HDL Cholesterol Lipase Vitamin B12 TSH Urine WBC (Auto) Urine Chloride Urine Total Protein Vancomycin Trough Crossmatch 11/22/16 11/22/16 11/22/16 17:43 20:04 23:38 WBC RBC Hgb Hct MCV RDW Plt Count Lymph % (Auto) [place] % (Auto) [place] # Seg Neutrophils % Seg Neuts % (Manual) Lymphocytes % (Manual) Monocytes % (Manual) Basophils % (Manual) Nucleated RBC % Seg Neutrophils # Seg Neutrophils # Man Lymphocytes # (Manual) Monocytes # (Manual) Eosinophils # (Manual) Basophils # (Manual) PT INR APTT Heparin Anti-Xa Level POC ABG pH 7.492 H POC ABG pCO2 23.2 L POC ABG pO2 60 L Sodium Potassium Chloride Carbon Dioxide BUN Creatinine Glucose POC Glucose 261 H 253 H Calcium Phosphorus Magnesium AST Alkaline Phosphatase Troponin T C-Reactive Protein Total Protein Albumin Triglycerides HDL Cholesterol Lipase Vitamin B12 TSH Urine WBC (Auto) Urine Chloride Urine Total Protein Vancomycin Trough Crossmatch 11/23/16 11/23/16 11/23/16 06:27 08:20 11:54 WBC RBC Hgb 8.2 L Hct 24.9 L MCV RDW Plt Count Lymph % (Auto) [place] % (Auto) [place] # Seg Neutrophils % Seg Neuts % (Manual) Lymphocytes % (Manual) Monocytes % (Manual) Basophils % (Manual) Nucleated RBC % Seg Neutrophils # Seg Neutrophils # Man Lymphocytes # (Manual) Monocytes # (Manual) Eosinophils # (Manual) Basophils # (Manual) PT INR APTT Heparin Anti-Xa Level POC ABG pH POC ABG pCO2 POC ABG pO2 Sodium Potassium Chloride Carbon Dioxide BUN Creatinine Glucose POC Glucose 333 H 286 H Calcium Phosphorus Magnesium AST Alkaline Phosphatase Troponin T C-Reactive Protein Total Protein Albumin Triglycerides HDL Cholesterol Lipase Vitamin B12 TSH Urine WBC (Auto) Urine Chloride Urine Total Protein Vancomycin Trough Crossmatch 11/23/16 11/23/16 11/24/16 17:53 23:51 00:12 WBC RBC Hgb Hct MCV RDW Plt Count Lymph % (Auto) [place] % (Auto) [place] # Seg Neutrophils % Seg Neuts % (Manual) Lymphocytes % (Manual) Monocytes % (Manual) Basophils % (Manual) Nucleated RBC % Seg Neutrophils # Seg Neutrophils # Man Lymphocytes # (Manual) Monocytes # (Manual) Eosinophils # (Manual) Basophils # (Manual) PT INR APTT Heparin Anti-Xa Level POC ABG pH POC ABG pCO2 POC ABG pO2 Sodium Potassium Chloride Carbon Dioxide BUN Creatinine Glucose POC Glucose 195 H 214 H 223 H Calcium Phosphorus Magnesium AST Alkaline Phosphatase Troponin T C-Reactive Protein Total Protein Albumin Triglycerides HDL Cholesterol Lipase Vitamin B12 TSH Urine WBC (Auto) Urine Chloride Urine Total Protein Vancomycin Trough Crossmatch 11/24/16 11/24/16 11/24/16 04:50 04:50 06:08 WBC RBC 2.74 L Hgb 8.4 L Hct 26.1 L MCV RDW 16.0 H Plt Count Lymph % (Auto) [place] % (Auto) [place] # Seg Neutrophils % Seg Neuts % (Manual) Lymphocytes % (Manual) Monocytes % (Manual) Basophils % (Manual) Nucleated RBC % Seg Neutrophils # Seg Neutrophils # Man Lymphocytes # (Manual) Monocytes # (Manual) Eosinophils # (Manual) Basophils # (Manual) PT INR APTT Heparin Anti-Xa Level POC ABG pH POC ABG pCO2 POC ABG pO2 Sodium 133 L Potassium Chloride Carbon Dioxide 19 L BUN 23 H Creatinine Glucose 200 H POC Glucose 187 H Calcium 7.2 L Phosphorus Magnesium AST Alkaline Phosphatase Troponin T C-Reactive Protein Total Protein Albumin Triglycerides HDL Cholesterol Lipase Vitamin B12 TSH Urine WBC (Auto) Urine Chloride Urine Total Protein Vancomycin Trough Crossmatch 11/24/16 11/24/16 11/24/16 12:02 17:43 23:35 WBC RBC Hgb Hct MCV RDW Plt Count Lymph % (Auto) [place] % (Auto) [place] # Seg Neutrophils % Seg Neuts % (Manual) Lymphocytes % (Manual) Monocytes % (Manual) Basophils % (Manual) Nucleated RBC % Seg Neutrophils # Seg Neutrophils # Man Lymphocytes # (Manual) Monocytes # (Manual) Eosinophils # (Manual) Basophils # (Manual) PT INR APTT Heparin Anti-Xa Level POC ABG pH POC ABG pCO2 POC ABG pO2 Sodium Potassium Chloride Carbon Dioxide BUN Creatinine Glucose POC Glucose 250 H 226 H 230 H Calcium Phosphorus Magnesium AST Alkaline Phosphatase Troponin T C-Reactive Protein Total Protein Albumin Triglycerides HDL Cholesterol Lipase Vitamin B12 TSH Urine WBC (Auto) Urine Chloride Urine Total Protein Vancomycin Trough Crossmatch 11/25/16 11/25/16 11/25/16 05:47 11:37 18:00 WBC RBC Hgb Hct MCV RDW Plt Count Lymph % (Auto) [place] % (Auto) [place] # Seg Neutrophils % Seg Neuts % (Manual) Lymphocytes % (Manual) Monocytes % (Manual) Basophils % (Manual) Nucleated RBC % Seg Neutrophils # Seg Neutrophils # Man Lymphocytes # (Manual) Monocytes # (Manual) Eosinophils # (Manual) Basophils # (Manual) PT INR APTT Heparin Anti-Xa Level POC ABG pH POC ABG pCO2 POC ABG pO2 Sodium Potassium Chloride Carbon Dioxide BUN Creatinine Glucose POC Glucose 229 H 226 H 226 H Calcium Phosphorus Magnesium AST Alkaline Phosphatase Troponin T C-Reactive Protein Total Protein Albumin Triglycerides HDL Cholesterol Lipase Vitamin B12 TSH Urine WBC (Auto) Urine Chloride Urine Total Protein Vancomycin Trough Crossmatch 11/26/16 11/26/16 11/26/16 05:43 12:05 17:05 WBC RBC Hgb Hct MCV RDW Plt Count Lymph % (Auto) [place] % (Auto) [place] # Seg Neutrophils % Seg Neuts % (Manual) Lymphocytes % (Manual) Monocytes % (Manual) Basophils % (Manual) Nucleated RBC % Seg Neutrophils # Seg Neutrophils # Man Lymphocytes # (Manual) Monocytes # (Manual) Eosinophils # (Manual) Basophils # (Manual) PT INR APTT Heparin Anti-Xa Level POC ABG pH POC ABG pCO2 POC ABG pO2 Sodium Potassium Chloride Carbon Dioxide BUN Creatinine Glucose POC Glucose 262 H 260 H 193 H Calcium Phosphorus Magnesium AST Alkaline Phosphatase Troponin T C-Reactive Protein Total Protein Albumin Triglycerides HDL Cholesterol Lipase Vitamin B12 TSH Urine WBC (Auto) Urine Chloride Urine Total Protein Vancomycin Trough Crossmatch 11/26/16 11/27/16 11/27/16 23:46 05:49 12:36 WBC RBC Hgb Hct MCV RDW Plt Count Lymph % (Auto) [place] % (Auto) [place] # Seg Neutrophils % Seg Neuts % (Manual) Lymphocytes % (Manual) Monocytes % (Manual) Basophils % (Manual) Nucleated RBC % Seg Neutrophils # Seg Neutrophils # Man Lymphocytes # (Manual) Monocytes # (Manual) Eosinophils # (Manual) Basophils # (Manual) PT INR APTT Heparin Anti-Xa Level POC ABG pH POC ABG pCO2 POC ABG pO2 Sodium Potassium Chloride Carbon Dioxide BUN Creatinine Glucose POC Glucose 183 H 182 H 250 H Calcium Phosphorus Magnesium AST Alkaline Phosphatase Troponin T C-Reactive Protein Total Protein Albumin Triglycerides HDL Cholesterol Lipase Vitamin B12 TSH Urine WBC (Auto) Urine Chloride Urine Total Protein Vancomycin Trough Crossmatch 11/27/16 11/27/16 11/27/16 17:02 17:45 22:42 WBC RBC Hgb Hct MCV RDW Plt Count Lymph % (Auto) [place] % (Auto) [place] # Seg Neutrophils % Seg Neuts % (Manual) Lymphocytes % (Manual) Monocytes % (Manual) Basophils % (Manual) Nucleated RBC % Seg Neutrophils # Seg Neutrophils # Man Lymphocytes # (Manual) Monocytes # (Manual) Eosinophils # (Manual) Basophils # (Manual) PT INR APTT Heparin Anti-Xa Level POC ABG pH 7.331 L POC ABG pCO2 POC ABG pO2 46 L Sodium Potassium Chloride Carbon Dioxide BUN Creatinine Glucose POC Glucose 275 H Calcium Phosphorus Magnesium AST Alkaline Phosphatase Troponin T 0.093 H C-Reactive Protein Total Protein Albumin Triglycerides HDL Cholesterol Lipase Vitamin B12 TSH Urine WBC (Auto) Urine Chloride Urine Total Protein Vancomycin Trough Crossmatch 11/27/16 11/28/16 11/28/16 23:28 05:46 05:46 WBC RBC 2.88 L Hgb 8.9 L Hct 27.7 L MCV RDW 17.2 H Plt Count Lymph % (Auto) [place] % (Auto) [place] # Seg Neutrophils % Seg Neuts % (Manual) Lymphocytes % (Manual) Monocytes % (Manual) Basophils % (Manual) Nucleated RBC % Seg Neutrophils # Seg Neutrophils # Man Lymphocytes # (Manual) Monocytes # (Manual) Eosinophils # (Manual) Basophils # (Manual) PT 15.1 H INR 1.20 H APTT Heparin Anti-Xa Level POC ABG pH POC ABG pCO2 POC ABG pO2 Sodium Potassium Chloride Carbon Dioxide BUN Creatinine Glucose POC Glucose 237 H Calcium Phosphorus Magnesium AST Alkaline Phosphatase Troponin T C-Reactive Protein Total Protein Albumin Triglycerides HDL Cholesterol Lipase Vitamin B12 TSH Urine WBC (Auto) Urine Chloride Urine Total Protein Vancomycin Trough Crossmatch 11/28/16 11/28/16 11/28/16 05:46 05:46 05:56 WBC RBC Hgb Hct MCV RDW Plt Count Lymph % (Auto) [place] % (Auto) [place] # Seg Neutrophils % Seg Neuts % (Manual) Lymphocytes % (Manual) Monocytes % (Manual) Basophils % (Manual) Nucleated RBC % Seg Neutrophils # Seg Neutrophils # Man Lymphocytes # (Manual) Monocytes # (Manual) Eosinophils # (Manual) Basophils # (Manual) PT INR APTT Heparin Anti-Xa Level POC ABG pH POC ABG pCO2 POC ABG pO2 Sodium Potassium Chloride Carbon Dioxide 21 L BUN 27 H Creatinine Glucose 237 H POC Glucose 275 H Calcium 8.1 L Phosphorus Magnesium AST Alkaline Phosphatase Troponin T 0.090 H C-Reactive Protein Total Protein Albumin Triglycerides 154 H HDL Cholesterol 38 L Lipase Vitamin B12 TSH Urine WBC (Auto) Urine Chloride Urine Total Protein Vancomycin Trough Crossmatch 11/28/16 11:20 WBC RBC Hgb Hct MCV RDW Plt Count Lymph % (Auto) [place] % (Auto) [place] # Seg Neutrophils % Seg Neuts % (Manual) Lymphocytes % (Manual) Monocytes % (Manual) Basophils % (Manual) Nucleated RBC % Seg Neutrophils # Seg Neutrophils # Man Lymphocytes # (Manual) Monocytes # (Manual) Eosinophils # (Manual) Basophils # (Manual) PT INR APTT Heparin Anti-Xa Level POC ABG pH POC ABG pCO2 POC ABG pO2 Sodium Potassium Chloride Carbon Dioxide BUN Creatinine Glucose POC Glucose 277 H Calcium Phosphorus Magnesium AST Alkaline Phosphatase Troponin T C-Reactive Protein Total Protein Albumin Triglycerides HDL Cholesterol Lipase Vitamin B12 TSH Urine WBC (Auto) Urine Chloride Urine Total Protein Vancomycin Trough Crossmatch Chest x-ray: report reviewed Allied health notes reviewed: RT
[2016-11-28] MEDS: TYLENOL PO PRN (22:00)
[2016-11-29 05:26] LABS: INR 1.36 (0.87-1.13)
[2016-11-29] MEDS: DILANTIN IV SCH ×3 (06:55→21:03)
[2016-11-29] MEDS: LOPRESSOR PO SCH ×3 (09:00→20:25)
[2016-11-29] MEDS: PEPCID PO SCH ×2 (09:35→21:03)
[2016-11-29] MEDS: LEVEMIR SUB-Q SCH (09:36)
[2016-11-29] MEDS: PLAVIX PO SCH (09:36)
[2016-11-29] MEDS: ZESTRIL PO SCH (09:38)
[2016-11-29] MEDS: LOVENOX SUB-Q SCH ×2 (10:27→21:03)
--- NOTE | 2016-11-29 15:19 | Progress Note ---
Assessment and Plan Assessment and plan: Patient is a 66-year-old woman who presented with lethargy and altered mental status with possible anoxic injury unknown duration of how long she was down for she deteriorated and was intubated in emergency room, she was managed for DKA and she also developed sepsis due to UTI and right lower extremity ischemia- > Cold right foot which I discovered on Rounds on 10/17/16 and I asked the nurse for the bedside doppler which showed no pulse, My exam on the morning of morning has changed, she had a pulse right foot. Arterial duplex revealed a proximal right superficial femoral artery occlusion. I consulted and discussed with Vascular surgery, Dr. Eller ==>Acute ischemic right foot. 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 Remained very difficult to wean from the vent. Although eventually was tolerating pressure support. She subsequently went into cardiac arrest was resuscitated but this time was not able to recover back to following commands as previous before second cardiac arrest. Heparin was discontinued due to CPR. Vascular did not feel at this time that for reactivation of the right lower extremity was needed. Imaging studies were consented for anoxic encephalopathy and cortical irritability although no diagnosis of brain was noted. Dr. Mcclure discussed with family extensively and has informed them about real possibility of not having any meaningful neurological recovery. They agreed with transfer to a skilled facility with vent Ability. Case management is working and is meantime we'll continue current therapy and management. -S/P cardiopulomary arrest x 2 -A/C respiratory failure with hypercapnea -Seizure-Per family prior hx -DM, s/p DKA -Hyponatremia -Acute limb ischemia of right lower ext due to SFA thrombosis- s/p right BKA -LUCY/CKD 3 likely vasomotor nephropathy-resolved -Sepsis, Strept Group B tracheobronchitis, poa- Multifactorial -Anemia of chronic disease -Hematuria -Metabolic acidosis -Severe Hypokalemia-RESOLVED -Pancreatitis, acute, poa -Vaginal candidiasis -Hypernatremia -MSOF, poa Plan: * s/p EEG - findings consistent with anoxic encephalopathy and cortical irritability * Neurology notes intact brain stem * PSV as tolerated * Family updated about the very real possibility of not having any meaningful neurological recovery. all questions answered. Family meeting with daughter, and grandchild with greatgrand child in attendance. Case mangement and social science analyst and bedside nurse were also present. * Poor prognosis. * Plan for transfer to longterm acute care facility pending * MRI brain with no gross abnormality * adjust insulin therapy * Neurologic input noted. EEG abnormal. * Heparin had to be held due to the risk associated considering recent CPR with chest compressions. * vascular following up on right BKA remains poor prognosis and likely will need a conversion to AKA. * Continue subcutaneous insulin and electrolyte replacement * Continue Cardizem and beta juan antonio * Monitor electrolytes and hemoglobin. * continue dilantin * DVT and GI prophylaxis New issue: ACUTE DVT IN THE RT.AXILLARY VEIN EXTENDING TO THE RT.BRACHIAL VEIN.RN INFORMED. Treat with therapeutic anticoagulation new issue: lungs more congested. Poor prognosis History Interval history: Patient seen and examined. Follow up on respiratory failure, still intubated. Overnight uneventful. Imaging, old records, testing, labs, nursing notes reviewed. Hospitalist Physical - Physical exam Narrative exam: GEN: Intubated CVS: RRR, NORMAL S1S2 LUNGS/CHEST: Tachypnea NORMAL CHEST EXPANSION B, GOOD AIR ENTRY B ABD: SOFT +peg, GBS, NO REBOUND OR GUARDING NEURO: CN 2-12 GROSSLY INTACT, doesn't follow commands, eyes wondering PSY: Anxious New issue: right bka, tracheostomy and peg present - Constitutional Vitals: Temp Pulse Resp BP Pulse Ox 98.9 F 98 H 29 H 134/74 99 11/29/16 12:00 11/29/16 13:11 11/29/16 13:00 11/29/16 13:11 11/29/16 13:00 General appearance: Present: no acute distress Results - Labs CBC & Chem 7: 11/28/16 05:46 11/28/16 05:46 Labs: Laboratory Last Values WBC 10.5 K/mm3 (4.5-11.0) 11/28/16 05:46 RBC 2.88 M/mm3 (3.65-5.03) L 11/28/16 05:46 Hgb 8.9 gm/dl (10.1-14.3) L 11/28/16 05:46 Hct 27.7 % (30.3-42.9) L 11/28/16 05:46 MCV 96 fl (79-97) 11/28/16 05:46 MCH 31 pg (28-32) 11/28/16 05:46 MCHC 32 % (30-34) 11/28/16 05:46 RDW 17.2 % (13.2-15.2) H 11/28/16 05:46 Plt Count 391 K/mm3 (140-440) 11/28/16 05:46 Lymph % (Auto) 14.8 % (13.4-35.0) 11/22/16 11:49 Hemphill % (Auto) 6.7 % (0.0-7.3) 11/22/16 11:49 Eos % (Auto) 1.1 % (0.0-4.3) 11/22/16 11:49 Baso % (Auto) 0.6 % (0.0-1.8) 11/22/16 11:49 Lymph # 1.6 K/mm3 (1.2-5.4) 11/22/16 11:49 Hemphill # 0.7 K/mm3 (0.0-0.8) 11/22/16 11:49 Eos # 0.1 K/mm3 (0.0-0.4) 11/22/16 11:49 Baso # 0.1 K/mm3 (0.0-0.1) 11/22/16 11:49 Add Manual Diff Complete 11/18/16 13:00 Total Counted 100 11/18/16 13:00 Seg Neutrophils % 76.8 % (40.0-70.0) H 11/22/16 11:49 Seg Neuts % (Manual) 90.0 % (40.0-70.0) H 11/18/16 13:00 Band Neutrophils % 0 % 11/18/16 13:00 Lymphocytes % (Manual) 8.0 % (13.4-35.0) L 11/18/16 13:00 Reactive Lymphs % (Man) 0 % 11/18/16 13:00 Monocytes % (Manual) 2.0 % (0.0-7.3) 11/18/16 13:00 Eosinophils % (Manual) 0 % (0.0-4.3) 11/18/16 13:00 Basophils % (Manual) 0 % (0.0-1.8) 11/18/16 13:00 Metamyelocytes % 0 % 11/18/16 13:00 Myelocytes % 0 % 11/18/16 13:00 Promyelocytes % 0 % 11/18/16 13:00 Blast Cells % 0 % 11/18/16 13:00 Nucleated RBC % Not Reportable 11/18/16 13:00 Seg Neutrophils # 8.5 K/mm3 (1.8-7.7) H 11/22/16 11:49 Seg Neutrophils # Man 11.3 K/mm3 (1.8-7.7) H 11/18/16 13:00 Band Neutrophils # 0.0 K/mm3 11/18/16 13:00 Lymphocytes # (Manual) 1.0 K/mm3 (1.2-5.4) L 11/18/16 13:00 Abs React Lymphs (Man) 0.0 K/mm3 11/18/16 13:00 Monocytes # (Manual) 0.3 K/mm3 (0.0-0.8) 11/18/16 13:00 Eosinophils # (Manual) 0.0 K/mm3 (0.0-0.4) 11/18/16 13:00 Basophils # (Manual) 0.0 K/mm3 (0.0-0.1) 11/18/16 13:00 Metamyelocytes # 0.0 K/mm3 11/18/16 13:00 Myelocytes # 0.0 K/mm3 11/18/16 13:00 Promyelocytes # 0.0 K/mm3 11/18/16 13:00 Blast Cells # 0.0 K/mm3 11/18/16 13:00 Pathologist Review 10/29/16 09:30 WBC Morphology Not Reportable 11/18/16 13:00 Hypersegmented Neuts Not Reportable 11/18/16 13:00 Hyposegmented Neuts Not Reportable 11/18/16 13:00 Hypogranular Neuts Not Reportable 11/18/16 13:00 Hypersegmented Polys TNR 10/17/16 07:08 Smudge Cells Not Reportable 11/18/16 13:00 Toxic Granulation Not Reportable 11/18/16 13:00 Toxic Vacuolation Not Reportable 11/18/16 13:00 Dohle Bodies Not Reportable 11/18/16 13:00 Pelger-Huet Anomaly Not Reportable 11/18/16 13:00 Alka Rods Not Reportable 11/18/16 13:00 Platelet Estimate Consistent w auto 11/18/16 13:00 Clumped Platelets Not Reportable 11/18/16 13:00 Plt Clumps, EDTA Not Reportable 11/18/16 13:00 Large Platelets Not Reportable 11/18/16 13:00 Giant Platelets Not Reportable 11/18/16 13:00 Platelet Satelliting Not Reportable 11/18/16 13:00 Plt Morphology Comment Not Reportable 11/18/16 13:00 RBC Morphology Not Reportable 11/18/16 13:00 Dimorphic RBCs Not Reportable 11/18/16 13:00 Polychromasia Not Reportable 11/18/16 13:00 Hypochromasia Not Reportable 11/18/16 13:00 Poikilocytosis Not Reportable 11/18/16 13:00 Basophilic Stippling TNR 10/17/16 07:08 Anisocytosis 1+ 11/18/16 13:00 Microcytosis Not Reportable 11/18/16 13:00 Macrocytosis Not Reportable 11/18/16 13:00 Spherocytes Not Reportable 11/18/16 13:00 Pappenheimer Bodies Not Reportable 11/18/16 13:00 Sickle Cells Not Reportable 11/18/16 13:00 Target Cells Not Reportable 11/18/16 13:00 Tear Drop Cells Not Reportable 11/18/16 13:00 Ovalocytes Not Reportable 11/18/16 13:00 Stomatocytes Few 11/03/16 00:05 Helmet Cells Not Reportable 11/18/16 13:00 Higgins-Roslyn Bodies Not Reportable 11/18/16 13:00 Clayton Rings Not Reportable 11/18/16 13:00 Jeannette Cells Not Reportable 11/18/16 13:00 Bite Cells Not Reportable 11/18/16 13:00 Crenated Cell Not Reportable 11/18/16 13:00 Elliptocytes Not Reportable 11/18/16 13:00 Acanthocytes (Spur) Not Reportable 11/18/16 13:00 Rouleaux Not Reportable 11/18/16 13:00 Hemoglobin C Crystals Not Reportable 11/18/16 13:00 Schistocytes Not Reportable 11/18/16 13:00 Malaria parasites Not Reportable 11/18/16 13:00 David Bodies Not Reportable 11/18/16 13:00 Hem Pathologist Commnt No 11/18/16 13:00 PT 16.7 Sec. (12.2-14.9) H 11/29/16 04:46 INR 1.36 (0.87-1.13) H 11/29/16 04:46 APTT 131.1 Sec. (24.2-36.6) H* 11/18/16 05:45 Heparin Anti-Xa Level 0.51 U.I./ml (0.3-0.7) 11/18/16 11:16 POC ABG pH 7.331 (7.35-7.45) L 11/27/16 17:45 POC ABG pCO2 38.1 (35-45) 11/27/16 17:45 POC ABG pO2 46 (80-105) L 11/27/16 17:45 POC ABG HCO3 20.1 11/27/16 17:45 POC ABG Total CO2 21 11/27/16 17:45 POC ABG O2 Sat 79 11/27/16 17:45 POC ABG Base Excess -6 11/27/16 17:45 VBG pH 7.020 (7.320-7.420) L* 10/13/16 04:22 FiO2 40 % 11/27/16 17:45 Sodium 141 mmol/L (137-145) D 11/28/16 05:46 Potassium 4.2 mmol/L (3.6-5.0) 11/28/16 05:46 Chloride 105.4 mmol/L (98-107) 11/28/16 05:46 Carbon Dioxide 21 mmol/L (22-30) L 11/28/16 05:46 Anion Gap 19 mmol/L 11/28/16 05:46 BUN 27 mg/dL (7-17) H 11/28/16 05:46 Creatinine 0.8 mg/dL (0.7-1.2) 11/28/16 05:46 Estimated GFR > 60 ml/min 11/28/16 05:46 BUN/Creatinine Ratio 33.75 % 11/28/16 05:46 Glucose 237 mg/dL (65-100) H 11/28/16 05:46 POC Glucose 232 (70-105) H 11/29/16 12:10 Osmolality 332 Mosm/kg 10/14/16 07:03 Lactic Acid 1.8 mmol/L (0.7-2.0) 10/14/16 07:03 Calcium 8.1 mg/dL (8.4-10.2) L 11/28/16 05:46 Phosphorus 2.7 mg/dL (2.5-4.5) D 10/21/16 Unknown Magnesium 2.0 mg/dL (1.7-2.3) 11/20/16 05:00 Total Bilirubin 0.2 mg/dL (0.1-1.2) 11/19/16 04:30 AST 9 units/L (5-40) 11/19/16 04:30 ALT 7 units/L (7-56) 11/19/16 04:30 Alkaline Phosphatase 82 units/L (35-129) 11/19/16 04:30 Ammonia 35.0 umol/L (25-60) 10/13/16 05:40 Total Creatine Kinase 107 units/L (30-135) 10/13/16 04:22 CK-MB (CK-2) 3.1 ng/mL (0.0-4.0) 10/13/16 04:22 CK-MB (CK-2) Rel Index 2.8 (0-4) 10/13/16 04:22 Troponin T 0.090 ng/mL (0.00-0.029) H 11/28/16 05:46 C-Reactive Protein 10.50 mg/dL (0.00-1.30) H 10/13/16 16:14 Total Protein 5.5 g/dL (6.3-8.2) L 11/19/16 04:30 Albumin 2.1 g/dL (3.9-5) L 11/19/16 04:30 Albumin/Globulin Ratio 0.6 % 11/19/16 04:30 Triglycerides 154 mg/dL (2-149) H 11/28/16 05:46 Cholesterol 128 mg/dL (50-199) 11/28/16 05:46 LDL Cholesterol Direct 60 mg/dL (50-130) 11/28/16 05:46 HDL Cholesterol 38 mg/dL (40-59) L 11/28/16 05:46 Cholesterol/HDL Ratio 3.36 % 11/28/16 05:46 Amylase 30 units/L (27-131) 11/10/16 04:30 Lipase 41 units/L (13-60) 11/10/16 04:30 Vitamin B12 976.8 pg/mL (211-911) H 10/22/16 10:25 TSH 0.162 mlU/mL (0.270-4.200) L 10/22/16 14:50 Free T4 0.77 ng/dL (0.76-1.46) 10/22/16 14:50 Urine Color Yellow (Yellow) 11/14/16 19:39 Urine Turbidity Cloudy (Clear) 11/14/16 19:39 Urine pH 6.0 (5.0-7.0) 11/14/16 19:39 Ur Specific Gypsum 1.010 (1.003-1.030) 11/14/16 19:39 Urine Protein 30 mg/dl mg/dL (Negative) 11/14/16 19:39 Urine Glucose (UA) 50 mg/dL (Negative) 11/14/16 19:39 Urine Ketones 20 mg/dL (Negative) 11/14/16 19:39 Urine Blood Lg (Negative) 11/14/16 19:39 Urine Nitrite Neg (Negative) 11/14/16 19:39 Urine Bilirubin Neg (Negative) 11/14/16 19:39 Urine Urobilinogen < 2.0 mg/dL (<2.0) 11/14/16 19:39 Ur Leukocyte Esterase Sm (Negative) 11/14/16 19:39 Urine WBC (Auto) 3.0 /HPF (0.0-6.0) 11/14/16 19:39 Urine RBC (Auto) > 182.0 /HPF (0.0-6.0) 11/14/16 19:39 U Epithel Cells (Auto) 1.0 /HPF (0-13.0) 10/15/16 11:05 Urine Bacteria (Auto) 1+ /HPF (Negative) 11/14/16 19:39 Urine Mucus Few /HPF 11/14/16 19:39 Urine Yeast (Budding) 2+ /HPF 10/15/16 11:05 Urine Osmolality 487 Mosm/kg 10/13/16 Unknown Urine Creatinine < 4.2 mg/dL (0.1-20.0) 10/13/16 Unknown Protein/Creatinin Ratio 0.00 10/13/16 Unknown Urine Sodium 10 mEq/L 10/13/16 Unknown Urine Potassium 1.00 mEq/L 10/13/16 Unknown Urine Chloride 10.0 mEq/L (110-250) L 10/13/16 Unknown Urine Total Protein < 4 mg/dL (5-11.8) L 10/13/16 Unknown Vancomycin Trough 30.4 ug/mL (5.0-20.0) H 11/21/16 09:50 Random Vancomycin 20.8 ug/mL (0-40.0) 11/23/16 04:00 Ketones 107.3 mg/dL (0.2-2.8) H 10/13/16 04:22 Blood Type A POSITIVE 11/03/16 18:01 Antibody Screen Negative 11/03/16 18:01 Crossmatch See Detail 11/03/16 18:01
--- NOTE | 2016-11-29 16:27 | Progress Note ---
Assessment and Plan - Patient Problems (1) Acute respiratory failure with hypercapnia Current Visit: Yes Status: Acute Plan to address problem: Continue with mechanical ventilatory support. Weaning/Spontaneous breathing trials as tolerated VAP bundle Critical bundles addressed Agitation management HOB >40, aspiration precautions VTE/Stress ulcer prophylaxis SAT/SBT Glycemic control (2) DKA (diabetic ketoacidoses) Current Visit: Yes Status: Acute Qualifiers: Diabetes mellitus type: D Diabetes mellitus complication detail: D Plan to address problem: Continue with accucheck and glycemic control. Glycemic control is acceptable Monitor closely. (3) Altered mental status Current Visit: Yes Status: Acute Qualifiers: Altered mental status type: A Coma depth: C Coma timing: C Plan to address problem: Toxic, metabolic, anoxia. Continue to monitor (4) Acidosis Current Visit: Yes Status: Acute Plan to address problem: Improving (5) Acute on chronic renal failure Current Visit: Yes Status: Acute Plan to address problem: Monitor renal function and electrolytes. Avoid nephrotoxic agents, adjust all medications for creatinine clearance Renal function has improved (6) Sepsis Current Visit: Yes Status: Acute Qualifiers: Sepsis type: S Plan to address problem: Resolving (7) DVT (deep venous thrombosis) Current Visit: Yes Status: Acute Qualifiers: DVT location: upper extremity Affected thrombotic vein of extremity: A Laterality: L Chronicity: C Plan to address problem: On coumadin with lovenox bridge. Monitor for bleeding. Will need anticoagulation for 3 months (8) Discharge planning issues Current Visit: Yes Status: Acute Plan to address problem: Discussed discharge care plan with the case management in the critical care unit. updated at the bedside. [facility] with capabilities for long term care social worker care (9) Cold foot Current Visit: Yes Status: Acute Qualifiers: Laterality: L Plan to address problem: s/p BKA (10) Hypertensive urgency, malignant Current Visit: Yes Status: Acute Plan to address problem: Blood pressure control much better. Increased metoprolol dose while monitoring blood pressure control. On lisinopril and monitor renal indices. Subjective Date of service: 11/29/16 Principal diagnosis: respiratory failure on mechanical ventilatory support, DKA Interval history: Patient seen and examined. Vitals, labs, medications, chart reviewed On-going encephalopathy and agitation s/p tracheostomy Right UExt DVT at the bedside. No acute overnight events reported Objective Vital Signs - 12hr 11/29/16 11/29/16 11/29/16 04:30 04:40 05:00 Temperature Pulse Rate 84 33 L 76 Pulse Rate [ From Monitor] Respiratory 32 H 27 H Rate Blood Pressure 147/77 147/77 132/57 O2 Sat by Pulse 100 Oximetry 11/29/16 11/29/16 11/29/16 05:26 05:30 06:00 Temperature Pulse Rate 77 80 Pulse Rate [ 78 From Monitor] Respiratory 21 24 30 H Rate Blood Pressure 142/60 144/54 O2 Sat by Pulse 100 100 100 Oximetry 11/29/16 11/29/16 11/29/16 06:30 07:00 07:30 Temperature Pulse Rate 76 78 77 Pulse Rate [ From Monitor] Respiratory 27 H 17 25 H Rate Blood Pressure 135/59 145/69 132/59 O2 Sat by Pulse 100 100 100 Oximetry 11/29/16 11/29/16 11/29/16 07:52 08:00 08:30 Temperature 98.5 F Pulse Rate 81 79 Pulse Rate [ 72 From Monitor] Respiratory 25 H 27 H Rate Blood Pressure 143/66 139/58 O2 Sat by Pulse 100 100 Oximetry 11/29/16 11/29/16 11/29/16 08:43 09:00 09:30 Temperature Pulse Rate 81 82 83 Pulse Rate [ From Monitor] Respiratory 29 H 26 H Rate Blood Pressure 139/58 143/59 146/62 O2 Sat by Pulse 100 100 100 Oximetry 11/29/16 11/29/16 11/29/16 09:38 10:00 10:04 Temperature Pulse Rate 85 88 86 Pulse Rate [ From Monitor] Respiratory 34 H Rate Blood Pressure 146/62 150/65 150/65 O2 Sat by Pulse 100 100 Oximetry 11/29/16 11/29/16 11/29/16 10:30 11:00 11:30 Temperature Pulse Rate 79 79 81 Pulse Rate [ From Monitor] Respiratory 31 H 32 H 32 H Rate Blood Pressure 154/64 157/68 151/69 O2 Sat by Pulse 100 100 99 Oximetry 11/29/16 11/29/16 11/29/16 12:00 12:08 12:30 Temperature 98.9 F Pulse Rate 97 H 97 H 97 H Pulse Rate [ 97 H From Monitor] Respiratory 30 H 31 H Rate Blood Pressure 156/70 156/70 147/70 O2 Sat by Pulse 100 100 100 Oximetry 11/29/16 11/29/16 11/29/16 13:00 13:11 13:30 Temperature Pulse Rate 98 H 98 H 96 H Pulse Rate [ From Monitor] Respiratory 29 H 27 H Rate Blood Pressure 134/74 134/74 143/65 O2 Sat by Pulse 99 100 Oximetry 11/29/16 11/29/16 11/29/16 14:00 14:30 15:00 Temperature Pulse Rate 94 H 92 H 78 Pulse Rate [ From Monitor] Respiratory 31 H 27 H 29 H Rate Blood Pressure 135/63 140/60 149/65 O2 Sat by Pulse 99 100 100 Oximetry 11/29/16 11/29/16 15:30 16:00 Temperature Pulse Rate 79 78 Pulse Rate [ From Monitor] Respiratory 31 H 27 H Rate Blood Pressure 150/66 153/67 O2 Sat by Pulse 100 100 Oximetry Constitutional: no acute distress, lethargic, appears uncomfortable, other ( Patient likely has anoxic encephalopathy, s/p trach to vent) Eyes: non-icteric ENT: oropharynx moist Neck: supple, no lymphadenopathy, no JVD Effort: normal, mildly labored Ascultation: Bilateral: diminished breath sounds, rales Cardiovascular: regular rate and rhythm, other (S1,S2, No murmurs) Gastrointestinal: normoactive bowel sounds, soft, non-distended, other ( Gastrostomy tube) Integumentary: normal Extremities: no cyanosis, no edema, no ischemia or petechiae, other (s/p right BKA. right UExt Edema) Neurologic: unable to assess, other (encephalopathic) Psychiatric: other (encephalopathic) CBC and BMP: 11/28/16 05:46 11/28/16 05:46 ABG, PT/INR, D-dimer: ABG POC ABG pH 7.331 (7.35-7.45) L 11/27/16 17:45 POC ABG pCO2 38.1 (35-45) 11/27/16 17:45 POC ABG pO2 46 (80-105) L 11/27/16 17:45 POC ABG HCO3 20.1 11/27/16 17:45 POC ABG Total CO2 21 11/27/16 17:45 POC ABG O2 Sat 79 11/27/16 17:45 PT/INR, D-dimer PT 16.7 Sec. (12.2-14.9) H 11/29/16 04:46 INR 1.36 (0.87-1.13) H 11/29/16 04:46 Abnormal lab findings: Abnormal Labs 10/13/16 10/13/16 10/13/16 06:38 06:38 07:23 WBC RBC Hgb Hct MCV RDW Plt Count Lymph % (Auto) [place] % (Auto) [place] # Seg Neutrophils % Seg Neuts % (Manual) Lymphocytes % (Manual) Monocytes % (Manual) Basophils % (Manual) Nucleated RBC % Seg Neutrophils # Seg Neutrophils # Man Lymphocytes # (Manual) Monocytes # (Manual) Eosinophils # (Manual) Basophils # (Manual) PT INR APTT Heparin Anti-Xa Level POC ABG pH POC ABG pCO2 POC ABG pO2 Sodium Potassium 6.2 H* Chloride Carbon Dioxide 8 L* BUN 85 H Creatinine 2.8 H Glucose 602 H* POC Glucose 495 H Calcium 7.9 L Phosphorus 6.9 H D Magnesium 3.0 H AST Alkaline Phosphatase Troponin T C-Reactive Protein Total Protein Albumin Triglycerides HDL Cholesterol Lipase Vitamin B12 TSH Urine WBC (Auto) Urine Chloride Urine Total Protein Vancomycin Trough Crossmatch 10/13/16 10/13/16 10/13/16 08:49 08:55 10:12 WBC RBC Hgb Hct MCV RDW Plt Count Lymph % (Auto) [place] % (Auto) [place] # Seg Neutrophils % Seg Neuts % (Manual) Lymphocytes % (Manual) Monocytes % (Manual) Basophils % (Manual) Nucleated RBC % Seg Neutrophils # Seg Neutrophils # Man Lymphocytes # (Manual) Monocytes # (Manual) Eosinophils # (Manual) Basophils # (Manual) PT INR APTT Heparin Anti-Xa Level POC ABG pH POC ABG pCO2 POC ABG pO2 Sodium Potassium 5.6 H Chloride Carbon Dioxide 11 L BUN 77 H Creatinine 2.7 H Glucose 457 H POC Glucose > 500 H 424 H Calcium 8.0 L Phosphorus Magnesium AST Alkaline Phosphatase Troponin T C-Reactive Protein Total Protein Albumin Triglycerides HDL Cholesterol Lipase Vitamin B12 TSH Urine WBC (Auto) Urine Chloride Urine Total Protein Vancomycin Trough Crossmatch 10/13/16 10/13/16 10/13/16 10:44 11:22 12:20 WBC RBC Hgb Hct MCV RDW Plt Count Lymph % (Auto) [place] % (Auto) [place] # Seg Neutrophils % Seg Neuts % (Manual) Lymphocytes % (Manual) Monocytes % (Manual) Basophils % (Manual) Nucleated RBC % Seg Neutrophils # Seg Neutrophils # Man Lymphocytes # (Manual) Monocytes # (Manual) Eosinophils # (Manual) Basophils # (Manual) PT INR APTT Heparin Anti-Xa Level POC ABG pH POC ABG pCO2 POC ABG pO2 Sodium Potassium 5.4 H Chloride Carbon Dioxide 14 L BUN 72 H Creatinine 2.6 H Glucose 383 H POC Glucose 391 H 313 H Calcium 8.2 L Phosphorus Magnesium AST Alkaline Phosphatase Troponin T C-Reactive Protein Total Protein Albumin Triglycerides HDL Cholesterol Lipase Vitamin B12 TSH Urine WBC (Auto) Urine Chloride Urine Total Protein Vancomycin Trough Crossmatch 10/13/16 10/13/16 10/13/16 13:32 14:44 15:57 WBC RBC Hgb Hct MCV RDW Plt Count Lymph % (Auto) [place] % (Auto) [place] # Seg Neutrophils % Seg Neuts % (Manual) Lymphocytes % (Manual) Monocytes % (Manual) Basophils % (Manual) Nucleated RBC % Seg Neutrophils # Seg Neutrophils # Man Lymphocytes # (Manual) Monocytes # (Manual) Eosinophils # (Manual) Basophils # (Manual) PT INR APTT Heparin Anti-Xa Level POC ABG pH POC ABG pCO2 POC ABG pO2 Sodium Potassium Chloride Carbon Dioxide BUN Creatinine Glucose POC Glucose 296 H 210 H 190 H Calcium Phosphorus Magnesium AST Alkaline Phosphatase Troponin T C-Reactive Protein Total Protein Albumin Triglycerides HDL Cholesterol Lipase Vitamin B12 TSH Urine WBC (Auto) Urine Chloride Urine Total Protein Vancomycin Trough Crossmatch 10/13/16 10/13/16 10/13/16 16:14 16:14 17:17 WBC RBC Hgb Hct MCV RDW Plt Count Lymph % (Auto) [place] % (Auto) [place] # Seg Neutrophils % Seg Neuts % (Manual) Lymphocytes % (Manual) Monocytes % (Manual) Basophils % (Manual) Nucleated RBC % Seg Neutrophils # Seg Neutrophils # Man Lymphocytes # (Manual) Monocytes # (Manual) Eosinophils # (Manual) Basophils # (Manual) PT INR APTT Heparin Anti-Xa Level POC ABG pH POC ABG pCO2 POC ABG pO2 Sodium Potassium Chloride Carbon Dioxide 17 L BUN 58 H Creatinine 1.8 H Glucose 172 H POC Glucose 193 H Calcium 7.7 L Phosphorus Magnesium AST Alkaline Phosphatase Troponin T C-Reactive Protein 10.50 H Total Protein Albumin Triglycerides HDL Cholesterol Lipase Vitamin B12 TSH Urine WBC (Auto) Urine Chloride Urine Total Protein Vancomycin Trough Crossmatch 02/10/13/16 10/13/16 17:55 18:32 19:41 WBC RBC Hgb Hct MCV RDW Plt Count Lymph % (Auto) [place] % (Auto) [place] # Seg Neutrophils % Seg Neuts % (Manual) Lymphocytes % (Manual) Monocytes % (Manual) Basophils % (Manual) Nucleated RBC % Seg Neutrophils # Seg Neutrophils # Man Lymphocytes # (Manual) Monocytes # (Manual) Eosinophils # (Manual) Basophils # (Manual) PT INR APTT Heparin Anti-Xa Level POC ABG pH POC ABG pCO2 30.6 L POC ABG pO2 218 H Sodium Potassium Chloride Carbon Dioxide BUN Creatinine Glucose POC Glucose 192 H 177 H Calcium Phosphorus Magnesium AST Alkaline Phosphatase Troponin T C-Reactive Protein Total Protein Albumin Triglycerides HDL Cholesterol Lipase Vitamin B12 TSH Urine WBC (Auto) Urine Chloride Urine Total Protein Vancomycin Trough Crossmatch 10/13/16 10/13/16 10/13/16 20:54 22:07 23:13 WBC RBC Hgb Hct MCV RDW Plt Count Lymph % (Auto) [place] % (Auto) [place] # Seg Neutrophils % Seg Neuts % (Manual) Lymphocytes % (Manual) Monocytes % (Manual) Basophils % (Manual) Nucleated RBC % Seg Neutrophils # Seg Neutrophils # Man Lymphocytes # (Manual) Monocytes # (Manual) Eosinophils # (Manual) Basophils # (Manual) PT INR APTT Heparin Anti-Xa Level POC ABG pH POC ABG pCO2 POC ABG pO2 Sodium Potassium Chloride Carbon Dioxide BUN Creatinine Glucose POC Glucose 178 H 160 H 168 H Calcium Phosphorus Magnesium AST Alkaline Phosphatase Troponin T C-Reactive Protein Total Protein Albumin Triglycerides HDL Cholesterol Lipase Vitamin B12 TSH Urine WBC (Auto) Urine Chloride Urine Total Protein Vancomycin Trough Crossmatch 10/13/16 10/13/16 10/14/16 23:25 Unknown 00:21 WBC RBC Hgb Hct MCV RDW Plt Count Lymph % (Auto) [place] % (Auto) [place] # Seg Neutrophils % Seg Neuts % (Manual) Lymphocytes % (Manual) Monocytes % (Manual) Basophils % (Manual) Nucleated RBC % Seg Neutrophils # Seg Neutrophils # Man Lymphocytes # (Manual) Monocytes # (Manual) Eosinophils # (Manual) Basophils # (Manual) PT INR APTT Heparin Anti-Xa Level POC ABG pH POC ABG pCO2 POC ABG pO2 Sodium 148 H Potassium Chloride 114.6 H Carbon Dioxide 17 L BUN 56 H Creatinine 1.6 H Glucose 151 H POC Glucose 171 H Calcium 7.8 L Phosphorus Magnesium AST Alkaline Phosphatase Troponin T C-Reactive Protein Total Protein Albumin Triglycerides HDL Cholesterol Lipase Vitamin B12 TSH Urine WBC (Auto) Urine Chloride 10.0 L Urine Total Protein < 4 L Vancomycin Trough Crossmatch 10/14/16 10/14/16 10/14/16 01:22 02:29 03:30 WBC RBC Hgb Hct MCV RDW Plt Count Lymph % (Auto) [place] % (Auto) [place] # Seg Neutrophils % Seg Neuts % (Manual) Lymphocytes % (Manual) Monocytes % (Manual) Basophils % (Manual) Nucleated RBC % Seg Neutrophils # Seg Neutrophils # Man Lymphocytes # (Manual) Monocytes # (Manual) Eosinophils # (Manual) Basophils # (Manual) PT INR APTT Heparin Anti-Xa Level POC ABG pH POC ABG pCO2 POC ABG pO2 Sodium Potassium Chloride Carbon Dioxide BUN Creatinine Glucose POC Glucose 144 H 136 H 143 H Calcium Phosphorus Magnesium AST Alkaline Phosphatase Troponin T C-Reactive Protein Total Protein Albumin Triglycerides HDL Cholesterol Lipase Vitamin B12 TSH Urine WBC (Auto) Urine Chloride Urine Total Protein Vancomycin Trough Crossmatch 10/14/16 10/14/16 10/14/16 04:28 05:16 05:44 WBC RBC Hgb Hct MCV RDW Plt Count Lymph % (Auto) [place] % (Auto) [place] # Seg Neutrophils % Seg Neuts % (Manual) Lymphocytes % (Manual) Monocytes % (Manual) Basophils % (Manual) Nucleated RBC % Seg Neutrophils # Seg Neutrophils # Man Lymphocytes # (Manual) Monocytes # (Manual) Eosinophils # (Manual) Basophils # (Manual) PT INR APTT Heparin Anti-Xa Level POC ABG pH POC ABG pCO2 28.2 L POC ABG pO2 125 H Sodium Potassium Chloride Carbon Dioxide BUN Creatinine Glucose POC Glucose 133 H 160 H Calcium Phosphorus Magnesium AST Alkaline Phosphatase Troponin T C-Reactive Protein Total Protein Albumin Triglycerides HDL Cholesterol Lipase Vitamin B12 TSH Urine WBC (Auto) Urine Chloride Urine Total Protein Vancomycin Trough Crossmatch 10/14/16 10/14/16 10/14/16 06:12 06:45 07:03 WBC RBC Hgb Hct MCV RDW Plt Count Lymph % (Auto) [place] % (Auto) [place] # Seg Neutrophils % Seg Neuts % (Manual) Lymphocytes % (Manual) Monocytes % (Manual) Basophils % (Manual) Nucleated RBC % Seg Neutrophils # Seg Neutrophils # Man Lymphocytes # (Manual) Monocytes # (Manual) Eosinophils # (Manual) Basophils # (Manual) PT INR APTT Heparin Anti-Xa Level POC ABG pH POC ABG pCO2 POC ABG pO2 Sodium 149 H Potassium Chloride 115.4 H Carbon Dioxide 17 L BUN 45 H Creatinine 1.5 H Glucose 139 H POC Glucose 149 H Calcium 7.4 L Phosphorus 1.0 L D Magnesium AST Alkaline Phosphatase Troponin T C-Reactive Protein Total Protein Albumin Triglycerides HDL Cholesterol Lipase Vitamin B12 TSH Urine WBC (Auto) Urine Chloride Urine Total Protein Vancomycin Trough Crossmatch 10/14/16 10/14/16 10/14/16 07:03 08:02 09:16 WBC RBC Hgb Hct MCV RDW Plt Count Lymph % (Auto) [place] % (Auto) [place] # Seg Neutrophils % Seg Neuts % (Manual) Lymphocytes % (Manual) Monocytes % (Manual) Basophils % (Manual) Nucleated RBC % Seg Neutrophils # Seg Neutrophils # Man Lymphocytes # (Manual) Monocytes # (Manual) Eosinophils # (Manual) Basophils # (Manual) PT INR APTT Heparin Anti-Xa Level POC ABG pH POC ABG pCO2 POC ABG pO2 Sodium Potassium Chloride Carbon Dioxide BUN Creatinine Glucose POC Glucose 156 H 158 H Calcium Phosphorus Magnesium AST Alkaline Phosphatase Troponin T C-Reactive Protein Total Protein Albumin Triglycerides HDL Cholesterol Lipase 738 H Vitamin B12 TSH Urine WBC (Auto) Urine Chloride Urine Total Protein Vancomycin Trough Crossmatch 10/14/16 10/14/16 10/14/16 10:26 11:03 11:57 WBC RBC Hgb Hct MCV RDW Plt Count Lymph % (Auto) [place] % (Auto) [place] # Seg Neutrophils % Seg Neuts % (Manual) Lymphocytes % (Manual) Monocytes % (Manual) Basophils % (Manual) Nucleated RBC % Seg Neutrophils # Seg Neutrophils # Man Lymphocytes # (Manual) Monocytes # (Manual) Eosinophils # (Manual) Basophils # (Manual) PT INR APTT Heparin Anti-Xa Level POC ABG pH 7.198 L POC ABG pCO2 47.5 H POC ABG pO2 Sodium Potassium Chloride Carbon Dioxide BUN Creatinine Glucose POC Glucose 174 H 189 H Calcium Phosphorus Magnesium AST Alkaline Phosphatase Troponin T C-Reactive Protein Total Protein Albumin Triglycerides HDL Cholesterol Lipase Vitamin B12 TSH Urine WBC (Auto) Urine Chloride Urine Total Protein Vancomycin Trough Crossmatch 10/14/16 10/14/16 10/14/16 12:02 12:02 13:11 WBC 13.4 H RBC 3.60 L Hgb Hct MCV 98 H D RDW 13.1 L Plt Count Lymph % (Auto) [place] % (Auto) [place] # Seg Neutrophils % Seg Neuts % (Manual) Lymphocytes % (Manual) Monocytes % (Manual) Basophils % (Manual) Nucleated RBC % Seg Neutrophils # Seg Neutrophils # Man Lymphocytes # (Manual) Monocytes # (Manual) Eosinophils # (Manual) Basophils # (Manual) PT INR APTT Heparin Anti-Xa Level POC ABG pH POC ABG pCO2 POC ABG pO2 Sodium Potassium Chloride 110.7 H Carbon Dioxide 19 L BUN 38 H Creatinine 1.4 H Glucose 182 H POC Glucose 173 H Calcium 7.5 L Phosphorus Magnesium AST Alkaline Phosphatase Troponin T C-Reactive Protein Total Protein Albumin Triglycerides HDL Cholesterol Lipase Vitamin B12 TSH Urine WBC (Auto) Urine Chloride Urine Total Protein Vancomycin Trough Crossmatch 10/14/16 10/14/16 10/14/16 14:24 15:31 16:36 WBC RBC Hgb Hct MCV RDW Plt Count Lymph % (Auto) [place] % (Auto) [place] # Seg Neutrophils % Seg Neuts % (Manual) Lymphocytes % (Manual) Monocytes % (Manual) Basophils % (Manual) Nucleated RBC % Seg Neutrophils # Seg Neutrophils # Man Lymphocytes # (Manual) Monocytes # (Manual) Eosinophils # (Manual) Basophils # (Manual) PT INR APTT Heparin Anti-Xa Level POC ABG pH POC ABG pCO2 POC ABG pO2 Sodium Potassium Chloride Carbon Dioxide BUN Creatinine Glucose POC Glucose 123 H 124 H 156 H Calcium Phosphorus Magnesium AST Alkaline Phosphatase Troponin T C-Reactive Protein Total Protein Albumin Triglycerides HDL Cholesterol Lipase Vitamin B12 TSH Urine WBC (Auto) Urine Chloride Urine Total Protein Vancomycin Trough Crossmatch 10/14/16 10/14/16 10/14/16 17:43 19:00 20:08 WBC RBC Hgb Hct MCV RDW Plt Count Lymph % (Auto) [place] % (Auto) [place] # Seg Neutrophils % Seg Neuts % (Manual) Lymphocytes % (Manual) Monocytes % (Manual) Basophils % (Manual) Nucleated RBC % Seg Neutrophils # Seg Neutrophils # Man Lymphocytes # (Manual) Monocytes # (Manual) Eosinophils # (Manual) Basophils # (Manual) PT INR APTT Heparin Anti-Xa Level POC ABG pH POC ABG pCO2 POC ABG pO2 Sodium Potassium Chloride Carbon Dioxide BUN Creatinine Glucose POC Glucose 154 H 123 H 138 H Calcium Phosphorus Magnesium AST Alkaline Phosphatase Troponin T C-Reactive Protein Total Protein Albumin Triglycerides HDL Cholesterol Lipase Vitamin B12 TSH Urine WBC (Auto) Urine Chloride Urine Total Protein Vancomycin Trough Crossmatch 10/14/16 10/14/16 10/14/16 21:17 22:25 23:37 WBC RBC Hgb Hct MCV RDW Plt Count Lymph % (Auto) [place] % (Auto) [place] # Seg Neutrophils % Seg Neuts % (Manual) Lymphocytes % (Manual) Monocytes % (Manual) Basophils % (Manual) Nucleated RBC % Seg Neutrophils # Seg Neutrophils # Man Lymphocytes # (Manual) Monocytes # (Manual) Eosinophils # (Manual) Basophils # (Manual) PT INR APTT Heparin Anti-Xa Level POC ABG pH POC ABG pCO2 POC ABG pO2 Sodium Potassium Chloride Carbon Dioxide BUN Creatinine Glucose POC Glucose 148 H 132 H 137 H Calcium Phosphorus Magnesium AST Alkaline Phosphatase Troponin T C-Reactive Protein Total Protein Albumin Triglycerides HDL Cholesterol Lipase Vitamin B12 TSH Urine WBC (Auto) Urine Chloride Urine Total Protein Vancomycin Trough Crossmatch 10/15/16 10/15/16 10/15/16 00:49 01:53 03:06 WBC RBC Hgb Hct MCV RDW Plt Count Lymph % (Auto) [place] % (Auto) [place] # Seg Neutrophils % Seg Neuts % (Manual) Lymphocytes % (Manual) Monocytes % (Manual) Basophils % (Manual) Nucleated RBC % Seg Neutrophils # Seg Neutrophils # Man Lymphocytes # (Manual) Monocytes # (Manual) Eosinophils # (Manual) Basophils # (Manual) PT INR APTT Heparin Anti-Xa Level POC ABG pH POC ABG pCO2 POC ABG pO2 Sodium Potassium Chloride Carbon Dioxide BUN Creatinine Glucose POC Glucose 132 H 134 H 134 H Calcium Phosphorus Magnesium AST Alkaline Phosphatase Troponin T C-Reactive Protein Total Protein Albumin Triglycerides HDL Cholesterol Lipase Vitamin B12 TSH Urine WBC (Auto) Urine Chloride Urine Total Protein Vancomycin Trough Crossmatch 10/15/16 10/15/16 10/15/16 04:40 04:46 06:21 WBC RBC Hgb Hct MCV RDW Plt Count Lymph % (Auto) [place] % (Auto) [place] # Seg Neutrophils % Seg Neuts % (Manual) Lymphocytes % (Manual) Monocytes % (Manual) Basophils % (Manual) Nucleated RBC % Seg Neutrophils # Seg Neutrophils # Man Lymphocytes # (Manual) Monocytes # (Manual) Eosinophils # (Manual) Basophils # (Manual) PT INR APTT Heparin Anti-Xa Level POC ABG pH POC ABG pCO2 30.7 L POC ABG pO2 108 H Sodium Potassium Chloride 109.0 H Carbon Dioxide 17 L BUN 27 H Creatinine Glucose 124 H POC Glucose 160 H Calcium 7.5 L Phosphorus Magnesium AST 79 H Alkaline Phosphatase Troponin T C-Reactive Protein Total Protein 5.5 L Albumin 3.0 L Triglycerides HDL Cholesterol Lipase Vitamin B12 TSH Urine WBC (Auto) Urine Chloride Urine Total Protein Vancomycin Trough Crossmatch 10/15/16 10/15/16 10/15/16 07:12 08:01 09:03 WBC RBC Hgb Hct MCV RDW Plt Count Lymph % (Auto) [place] % (Auto) [place] # Seg Neutrophils % Seg Neuts % (Manual) Lymphocytes % (Manual) Monocytes % (Manual) Basophils % (Manual) Nucleated RBC % Seg Neutrophils # Seg Neutrophils # Man Lymphocytes # (Manual) Monocytes # (Manual) Eosinophils # (Manual) Basophils # (Manual) PT INR APTT Heparin Anti-Xa Level POC ABG pH POC ABG pCO2 POC ABG pO2 Sodium Potassium Chloride Carbon Dioxide BUN Creatinine Glucose POC Glucose 179 H 187 H 165 H Calcium Phosphorus Magnesium AST Alkaline Phosphatase Troponin T C-Reactive Protein Total Protein Albumin Triglycerides HDL Cholesterol Lipase Vitamin B12 TSH Urine WBC (Auto) Urine Chloride Urine Total Protein Vancomycin Trough Crossmatch 10/15/16 10/15/16 10/15/16 10:06 10:06 10:07 WBC 12.1 H RBC 3.01 L Hgb 9.7 L Hct 29.6 L MCV 98 H RDW Plt Count 129 L Lymph % (Auto) [place] % (Auto) [place] # Seg Neutrophils % Seg Neuts % (Manual) Lymphocytes % (Manual) Monocytes % (Manual) Basophils % (Manual) Nucleated RBC % Seg Neutrophils # Seg Neutrophils # Man Lymphocytes # (Manual) Monocytes # (Manual) Eosinophils # (Manual) Basophils # (Manual) PT INR APTT Heparin Anti-Xa Level POC ABG pH POC ABG pCO2 POC ABG pO2 Sodium Potassium 3.2 L D Chloride 109.6 H Carbon Dioxide 18 L BUN 22 H Creatinine Glucose 127 H POC Glucose 147 H Calcium 7.0 L Phosphorus Magnesium AST Alkaline Phosphatase Troponin T C-Reactive Protein Total Protein Albumin Triglycerides HDL Cholesterol Lipase Vitamin B12 TSH Urine WBC (Auto) Urine Chloride Urine Total Protein Vancomycin Trough Crossmatch 10/15/16 10/15/16 10/15/16 11:05 11:06 11:57 WBC RBC Hgb Hct MCV RDW Plt Count Lymph % (Auto) [place] % (Auto) [place] # Seg Neutrophils % Seg Neuts % (Manual) Lymphocytes % (Manual) Monocytes % (Manual) Basophils % (Manual) Nucleated RBC % Seg Neutrophils # Seg Neutrophils # Man Lymphocytes # (Manual) Monocytes # (Manual) Eosinophils # (Manual) Basophils # (Manual) PT INR APTT Heparin Anti-Xa Level POC ABG pH 7.305 L POC ABG pCO2 POC ABG pO2 Sodium Potassium Chloride Carbon Dioxide BUN Creatinine Glucose POC Glucose 145 H Calcium Phosphorus Magnesium AST Alkaline Phosphatase Troponin T C-Reactive Protein Total Protein Albumin Triglycerides HDL Cholesterol Lipase Vitamin B12 TSH Urine WBC (Auto) 7.0 H Urine Chloride Urine Total Protein Vancomycin Trough Crossmatch 10/15/16 10/15/16 10/15/16 12:04 13:59 15:24 WBC RBC Hgb Hct MCV RDW Plt Count Lymph % (Auto) [place] % (Auto) [place] # Seg Neutrophils % Seg Neuts % (Manual) Lymphocytes % (Manual) Monocytes % (Manual) Basophils % (Manual) Nucleated RBC % Seg Neutrophils # Seg Neutrophils # Man Lymphocytes # (Manual) Monocytes # (Manual) Eosinophils # (Manual) Basophils # (Manual) PT INR APTT Heparin Anti-Xa Level POC ABG pH POC ABG pCO2 POC ABG pO2 Sodium Potassium Chloride Carbon Dioxide BUN Creatinine Glucose POC Glucose 123 H 147 H 153 H Calcium Phosphorus Magnesium AST Alkaline Phosphatase Troponin T C-Reactive Protein Total Protein Albumin Triglycerides HDL Cholesterol Lipase Vitamin B12 TSH Urine WBC (Auto) Urine Chloride Urine Total Protein Vancomycin Trough Crossmatch 10/15/16 10/15/16 10/15/16 16:30 17:34 18:30 WBC RBC Hgb Hct MCV RDW Plt Count Lymph % (Auto) [place] % (Auto) [place] # Seg Neutrophils % Seg Neuts % (Manual) Lymphocytes % (Manual) Monocytes % (Manual) Basophils % (Manual) Nucleated RBC % Seg Neutrophils # Seg Neutrophils # Man Lymphocytes # (Manual) Monocytes # (Manual) Eosinophils # (Manual) Basophils # (Manual) PT INR APTT Heparin Anti-Xa Level POC ABG pH POC ABG pCO2 POC ABG pO2 Sodium Potassium Chloride Carbon Dioxide BUN Creatinine Glucose POC Glucose 223 H 236 H 164 H Calcium Phosphorus Magnesium AST Alkaline Phosphatase Troponin T C-Reactive Protein Total Protein Albumin Triglycerides HDL Cholesterol Lipase Vitamin B12 TSH Urine WBC (Auto) Urine Chloride Urine Total Protein Vancomycin Trough Crossmatch 10/15/16 10/15/16 10/15/16 19:14 20:31 21:23 WBC RBC Hgb Hct MCV RDW Plt Count Lymph % (Auto) [place] % (Auto) [place] # Seg Neutrophils % Seg Neuts % (Manual) Lymphocytes % (Manual) Monocytes % (Manual) Basophils % (Manual) Nucleated RBC % Seg Neutrophils # Seg Neutrophils # Man Lymphocytes # (Manual) Monocytes # (Manual) Eosinophils # (Manual) Basophils # (Manual) PT INR APTT Heparin Anti-Xa Level POC ABG pH POC ABG pCO2 POC ABG pO2 Sodium Potassium Chloride Carbon Dioxide BUN Creatinine Glucose POC Glucose 138 H 158 H 158 H Calcium Phosphorus Magnesium AST Alkaline Phosphatase Troponin T C-Reactive Protein Total Protein Albumin Triglycerides HDL Cholesterol Lipase Vitamin B12 TSH Urine WBC (Auto) Urine Chloride Urine Total Protein Vancomycin Trough Crossmatch 10/15/16 10/15/16 10/16/16 22:04 22:57 00:11 WBC RBC Hgb Hct MCV RDW Plt Count Lymph % (Auto) [place] % (Auto) [place] # Seg Neutrophils % Seg Neuts % (Manual) Lymphocytes % (Manual) Monocytes % (Manual) Basophils % (Manual) Nucleated RBC % Seg Neutrophils # Seg Neutrophils # Man Lymphocytes # (Manual) Monocytes # (Manual) Eosinophils # (Manual) Basophils # (Manual) PT INR APTT Heparin Anti-Xa Level POC ABG pH POC ABG pCO2 POC ABG pO2 Sodium Potassium Chloride Carbon Dioxide BUN Creatinine Glucose POC Glucose 168 H 213 H 166 H Calcium Phosphorus Magnesium AST Alkaline Phosphatase Troponin T C-Reactive Protein Total Protein Albumin Triglycerides HDL Cholesterol Lipase Vitamin B12 TSH Urine WBC (Auto) Urine Chloride Urine Total Protein Vancomycin Trough Crossmatch 10/16/16 10/16/16 10/16/16 01:16 02:32 03:38 WBC RBC Hgb Hct MCV RDW Plt Count Lymph % (Auto) [place] % (Auto) [place] # Seg Neutrophils % Seg Neuts % (Manual) Lymphocytes % (Manual) Monocytes % (Manual) Basophils % (Manual) Nucleated RBC % Seg Neutrophils # Seg Neutrophils # Man Lymphocytes # (Manual) Monocytes # (Manual) Eosinophils # (Manual) Basophils # (Manual) PT INR APTT Heparin Anti-Xa Level POC ABG pH POC ABG pCO2 POC ABG pO2 Sodium Potassium Chloride Carbon Dioxide BUN Creatinine Glucose POC Glucose 171 H 164 H 147 H Calcium Phosphorus Magnesium AST Alkaline Phosphatase Troponin T C-Reactive Protein Total Protein Albumin Triglycerides HDL Cholesterol Lipase Vitamin B12 TSH Urine WBC (Auto) Urine Chloride Urine Total Protein Vancomycin Trough Crossmatch 0210/16/16 10/16/16 04:14 04:14 04:49 WBC RBC Hgb Hct MCV RDW Plt Count Lymph % (Auto) [place] % (Auto) [place] # Seg Neutrophils % Seg Neuts % (Manual) Lymphocytes % (Manual) Monocytes % (Manual) Basophils % (Manual) Nucleated RBC % Seg Neutrophils # Seg Neutrophils # Man Lymphocytes # (Manual) Monocytes # (Manual) Eosinophils # (Manual) Basophils # (Manual) PT INR APTT Heparin Anti-Xa Level POC ABG pH POC ABG pCO2 POC ABG pO2 Sodium 147 H Potassium Chloride 110.9 H Carbon Dioxide 19 L BUN Creatinine Glucose 139 H POC Glucose 144 H Calcium 7.3 L Phosphorus 2.3 L Magnesium AST Alkaline Phosphatase Troponin T C-Reactive Protein Total Protein Albumin Triglycerides HDL Cholesterol Lipase 143 H Vitamin B12 TSH Urine WBC (Auto) Urine Chloride Urine Total Protein Vancomycin Trough Crossmatch 10/16/16 10/16/16 10/16/16 05:03 05:41 05:58 WBC 16.5 H RBC 3.36 L Hgb Hct MCV 98 H RDW 13.1 L Plt Count Lymph % (Auto) 8.5 L [place] % (Auto) 7.6 H [place] # 1.3 H Seg Neutrophils % 83.3 H Seg Neuts % (Manual) Lymphocytes % (Manual) Monocytes % (Manual) Basophils % (Manual) Nucleated RBC % Seg Neutrophils # 13.8 H Seg Neutrophils # Man Lymphocytes # (Manual) Monocytes # (Manual) Eosinophils # (Manual) Basophils # (Manual) PT INR APTT Heparin Anti-Xa Level POC ABG pH POC ABG pCO2 30.7 L POC ABG pO2 128 H Sodium Potassium Chloride Carbon Dioxide BUN Creatinine Glucose POC Glucose 131 H Calcium Phosphorus Magnesium AST Alkaline Phosphatase Troponin T C-Reactive Protein Total Protein Albumin Triglycerides HDL Cholesterol Lipase Vitamin B12 TSH Urine WBC (Auto) Urine Chloride Urine Total Protein Vancomycin Trough Crossmatch 10/16/16 10/16/16 10/16/16 06:32 09:27 09:35 WBC RBC Hgb Hct MCV RDW Plt Count Lymph % (Auto) [place] % (Auto) [place] # Seg Neutrophils % Seg Neuts % (Manual) Lymphocytes % (Manual) Monocytes % (Manual) Basophils % (Manual) Nucleated RBC % Seg Neutrophils # Seg Neutrophils # Man Lymphocytes # (Manual) Monocytes # (Manual) Eosinophils # (Manual) Basophils # (Manual) PT INR APTT Heparin Anti-Xa Level POC ABG pH POC ABG pCO2 32.8 L POC ABG pO2 137 H Sodium Potassium Chloride Carbon Dioxide BUN Creatinine Glucose POC Glucose 121 H 150 H Calcium Phosphorus Magnesium AST Alkaline Phosphatase Troponin T C-Reactive Protein Total Protein Albumin Triglycerides HDL Cholesterol Lipase Vitamin B12 TSH Urine WBC (Auto) Urine Chloride Urine Total Protein Vancomycin Trough Crossmatch 10/16/16 10/16/16 10/16/16 10:47 13:27 14:24 WBC RBC Hgb Hct MCV RDW Plt Count Lymph % (Auto) [place] % (Auto) [place] # Seg Neutrophils % Seg Neuts % (Manual) Lymphocytes % (Manual) Monocytes % (Manual) Basophils % (Manual) Nucleated RBC % Seg Neutrophils # Seg Neutrophils # Man Lymphocytes # (Manual) Monocytes # (Manual) Eosinophils # (Manual) Basophils # (Manual) PT INR APTT Heparin Anti-Xa Level POC ABG pH POC ABG pCO2 POC ABG pO2 Sodium Potassium Chloride Carbon Dioxide BUN Creatinine Glucose POC Glucose 184 H 171 H 174 H Calcium Phosphorus Magnesium AST Alkaline Phosphatase Troponin T C-Reactive Protein Total Protein Albumin Triglycerides HDL Cholesterol Lipase Vitamin B12 TSH Urine WBC (Auto) Urine Chloride Urine Total Protein Vancomycin Trough Crossmatch 10/16/16 10/16/16 10/16/16 15:48 16:26 18:17 WBC RBC Hgb Hct MCV RDW Plt Count Lymph % (Auto) [place] % (Auto) [place] # Seg Neutrophils % Seg Neuts % (Manual) Lymphocytes % (Manual) Monocytes % (Manual) Basophils % (Manual) Nucleated RBC % Seg Neutrophils # Seg Neutrophils # Man Lymphocytes # (Manual) Monocytes # (Manual) Eosinophils # (Manual) Basophils # (Manual) PT INR APTT Heparin Anti-Xa Level POC ABG pH POC ABG pCO2 POC ABG pO2 Sodium Potassium Chloride Carbon Dioxide BUN Creatinine Glucose POC Glucose 205 H 204 H 234 H Calcium Phosphorus Magnesium AST Alkaline Phosphatase Troponin T C-Reactive Protein Total Protein Albumin Triglycerides HDL Cholesterol Lipase Vitamin B12 TSH Urine WBC (Auto) Urine Chloride Urine Total Protein Vancomycin Trough Crossmatch 10/16/16 10/16/16 10/16/16 19:40 20:33 21:36 WBC RBC Hgb Hct MCV RDW Plt Count Lymph % (Auto) [place] % (Auto) [place] # Seg Neutrophils % Seg Neuts % (Manual) Lymphocytes % (Manual) Monocytes % (Manual) Basophils % (Manual) Nucleated RBC % Seg Neutrophils # Seg Neutrophils # Man Lymphocytes # (Manual) Monocytes # (Manual) Eosinophils # (Manual) Basophils # (Manual) PT INR APTT Heparin Anti-Xa Level POC ABG pH POC ABG pCO2 POC ABG pO2 Sodium Potassium Chloride Carbon Dioxide BUN Creatinine Glucose POC Glucose 167 H 153 H 158 H Calcium Phosphorus Magnesium AST Alkaline Phosphatase Troponin T C-Reactive Protein Total Protein Albumin Triglycerides HDL Cholesterol Lipase Vitamin B12 TSH Urine WBC (Auto) Urine Chloride Urine Total Protein Vancomycin Trough Crossmatch 10/16/16 10/16/16 10/17/16 22:54 23:48 00:47 WBC RBC Hgb Hct MCV RDW Plt Count Lymph % (Auto) [place] % (Auto) [place] # Seg Neutrophils % Seg Neuts % (Manual) Lymphocytes % (Manual) Monocytes % (Manual) Basophils % (Manual) Nucleated RBC % Seg Neutrophils # Seg Neutrophils # Man Lymphocytes # (Manual) Monocytes # (Manual) Eosinophils # (Manual) Basophils # (Manual) PT INR APTT Heparin Anti-Xa Level POC ABG pH POC ABG pCO2 POC ABG pO2 Sodium Potassium Chloride Carbon Dioxide BUN Creatinine Glucose POC Glucose 180 H 207 H 196 H Calcium Phosphorus Magnesium AST Alkaline Phosphatase Troponin T C-Reactive Protein Total Protein Albumin Triglycerides HDL Cholesterol Lipase Vitamin B12 TSH Urine WBC (Auto) Urine Chloride Urine Total Protein Vancomycin Trough Crossmatch 10/17/16 10/17/16 10/17/16 01:57 02:49 03:50 WBC RBC Hgb Hct MCV RDW Plt Count Lymph % (Auto) [place] % (Auto) [place] # Seg Neutrophils % Seg Neuts % (Manual) Lymphocytes % (Manual) Monocytes % (Manual) Basophils % (Manual) Nucleated RBC % Seg Neutrophils # Seg Neutrophils # Man Lymphocytes # (Manual) Monocytes # (Manual) Eosinophils # (Manual) Basophils # (Manual) PT INR APTT Heparin Anti-Xa Level POC ABG pH POC ABG pCO2 POC ABG pO2 Sodium Potassium Chloride Carbon Dioxide BUN Creatinine Glucose POC Glucose 180 H 151 H 106 H Calcium Phosphorus Magnesium AST Alkaline Phosphatase Troponin T C-Reactive Protein Total Protein Albumin Triglycerides HDL Cholesterol Lipase Vitamin B12 TSH Urine WBC (Auto) Urine Chloride Urine Total Protein Vancomycin Trough Crossmatch 10/17/16 10/17/16 10/17/16 04:59 06:03 06:35 WBC RBC Hgb Hct MCV RDW Plt Count Lymph % (Auto) [place] % (Auto) [place] # Seg Neutrophils % Seg Neuts % (Manual) Lymphocytes % (Manual) Monocytes % (Manual) Basophils % (Manual) Nucleated RBC % Seg Neutrophils # Seg Neutrophils # Man Lymphocytes # (Manual) Monocytes # (Manual) Eosinophils # (Manual) Basophils # (Manual) PT INR APTT Heparin Anti-Xa Level POC ABG pH 7.453 H POC ABG pCO2 30.1 L POC ABG pO2 111 H Sodium Potassium Chloride Carbon Dioxide BUN Creatinine Glucose POC Glucose 145 H 157 H Calcium Phosphorus Magnesium AST Alkaline Phosphatase Troponin T C-Reactive Protein Total Protein Albumin Triglycerides HDL Cholesterol Lipase Vitamin B12 TSH Urine WBC (Auto) Urine Chloride Urine Total Protein Vancomycin Trough Crossmatch 10/17/16 10/17/16 10/17/16 07:08 07:11 08:01 WBC RBC Hgb Hct MCV RDW Plt Count Lymph % (Auto) [place] % (Auto) [place] # Seg Neutrophils % Seg Neuts % (Manual) Lymphocytes % (Manual) Monocytes % (Manual) Basophils % (Manual) Nucleated RBC % Seg Neutrophils # Seg Neutrophils # Man Lymphocytes # (Manual) Monocytes # (Manual) Eosinophils # (Manual) Basophils # (Manual) PT INR APTT Heparin Anti-Xa Level POC ABG pH POC ABG pCO2 POC ABG pO2 Sodium 147 H Potassium Chloride 113.8 H Carbon Dioxide 19 L BUN Creatinine Glucose 136 H POC Glucose 136 H 152 H Calcium 7.7 L Phosphorus Magnesium AST Alkaline Phosphatase Troponin T C-Reactive Protein Total Protein Albumin Triglycerides HDL Cholesterol Lipase Vitamin B12 TSH Urine WBC (Auto) Urine Chloride Urine Total Protein Vancomycin Trough Crossmatch 10/17/16 10/17/16 10/17/16 08:23 09:17 09:53 WBC 18.1 H RBC 3.01 L Hgb 9.7 L Hct 29.4 L MCV 98 H RDW Plt Count 116 L Lymph % (Auto) [place] % (Auto) [place] # Seg Neutrophils % Seg Neuts % (Manual) 77.0 H Lymphocytes % (Manual) 4.0 L Monocytes % (Manual) 12.0 H Basophils % (Manual) Nucleated RBC % Seg Neutrophils # Seg Neutrophils # Man 13.9 H Lymphocytes # (Manual) 0.7 L Monocytes # (Manual) 2.2 H Eosinophils # (Manual) Basophils # (Manual) PT INR APTT Heparin Anti-Xa Level POC ABG pH POC ABG pCO2 POC ABG pO2 Sodium Potassium Chloride Carbon Dioxide BUN Creatinine Glucose POC Glucose 148 H 137 H Calcium Phosphorus Magnesium AST Alkaline Phosphatase Troponin T C-Reactive Protein Total Protein Albumin Triglycerides HDL Cholesterol Lipase Vitamin B12 TSH Urine WBC (Auto) Urine Chloride Urine Total Protein Vancomycin Trough Crossmatch 10/17/16 10/17/16 10/17/16 11:43 16:07 17:42 WBC RBC Hgb Hct MCV RDW Plt Count Lymph % (Auto) [place] % (Auto) [place] # Seg Neutrophils % Seg Neuts % (Manual) Lymphocytes % (Manual) Monocytes % (Manual) Basophils % (Manual) Nucleated RBC % Seg Neutrophils # Seg Neutrophils # Man Lymphocytes # (Manual) Monocytes # (Manual) Eosinophils # (Manual) Basophils # (Manual) PT 16.4 H INR 1.33 H APTT 38.8 H Heparin Anti-Xa Level POC ABG pH POC ABG pCO2 POC ABG pO2 Sodium Potassium Chloride Carbon Dioxide BUN Creatinine Glucose POC Glucose 179 H 153 H Calcium Phosphorus Magnesium AST Alkaline Phosphatase Troponin T C-Reactive Protein Total Protein Albumin Triglycerides HDL Cholesterol Lipase Vitamin B12 TSH Urine WBC (Auto) Urine Chloride Urine Total Protein Vancomycin Trough Crossmatch 10/17/16 10/18/16 10/18/16 22:54 04:37 05:39 WBC RBC Hgb Hct MCV RDW Plt Count Lymph % (Auto) [place] % (Auto) [place] # Seg Neutrophils % Seg Neuts % (Manual) Lymphocytes % (Manual) Monocytes % (Manual) Basophils % (Manual) Nucleated RBC % Seg Neutrophils # Seg Neutrophils # Man Lymphocytes # (Manual) Monocytes # (Manual) Eosinophils # (Manual) Basophils # (Manual) PT INR APTT Heparin Anti-Xa Level 0.27 L POC ABG pH 7.454 H POC ABG pCO2 30.8 L POC ABG pO2 115 H Sodium Potassium Chloride Carbon Dioxide BUN Creatinine Glucose POC Glucose 69 L Calcium Phosphorus Magnesium AST Alkaline Phosphatase Troponin T C-Reactive Protein Total Protein Albumin Triglycerides HDL Cholesterol Lipase Vitamin B12 TSH Urine WBC (Auto) Urine Chloride Urine Total Protein Vancomycin Trough Crossmatch 10/18/16 10/18/16 10/18/16 06:46 06:46 06:46 WBC 20.5 H RBC 2.62 L Hgb 8.4 L Hct 26.0 L MCV 100 H RDW Plt Count Lymph % (Auto) [place] % (Auto) [place] # Seg Neutrophils % Seg Neuts % (Manual) 75.0 H Lymphocytes % (Manual) 9.0 L Monocytes % (Manual) 14.0 H Basophils % (Manual) Nucleated RBC % Seg Neutrophils # Seg Neutrophils # Man 15.4 H Lymphocytes # (Manual) Monocytes # (Manual) 2.9 H Eosinophils # (Manual) Basophils # (Manual) PT INR APTT Heparin Anti-Xa Level POC ABG pH POC ABG pCO2 POC ABG pO2 Sodium Potassium Chloride 110.6 H Carbon Dioxide BUN Creatinine 1.3 H Glucose 153 H POC Glucose Calcium 8.0 L Phosphorus Magnesium 1.6 L AST Alkaline Phosphatase Troponin T C-Reactive Protein Total Protein Albumin Triglycerides HDL Cholesterol Lipase Vitamin B12 TSH Urine WBC (Auto) Urine Chloride Urine Total Protein Vancomycin Trough Crossmatch 10/18/16 10/18/16 10/18/16 07:30 11:37 17:51 WBC RBC Hgb Hct MCV RDW Plt Count Lymph % (Auto) [place] % (Auto) [place] # Seg Neutrophils % Seg Neuts % (Manual) Lymphocytes % (Manual) Monocytes % (Manual) Basophils % (Manual) Nucleated RBC % Seg Neutrophils # Seg Neutrophils # Man Lymphocytes # (Manual) Monocytes # (Manual) Eosinophils # (Manual) Basophils # (Manual) PT INR APTT Heparin Anti-Xa Level POC ABG pH POC ABG pCO2 POC ABG pO2 Sodium Potassium Chloride Carbon Dioxide BUN Creatinine Glucose POC Glucose 162 H 156 H 164 H Calcium Phosphorus Magnesium AST Alkaline Phosphatase Troponin T C-Reactive Protein Total Protein Albumin Triglycerides HDL Cholesterol Lipase Vitamin B12 TSH Urine WBC (Auto) Urine Chloride Urine Total Protein Vancomycin Trough Crossmatch 10/18/16 10/19/16 10/19/16 23:44 03:59 05:13 WBC 18.2 H RBC 2.76 L Hgb 9.0 L Hct 27.7 L MCV 100 H RDW Plt Count Lymph % (Auto) [place] % (Auto) [place] # Seg Neutrophils % Seg Neuts % (Manual) 76.0 H Lymphocytes % (Manual) 10.0 L Monocytes % (Manual) Basophils % (Manual) Nucleated RBC % Seg Neutrophils # Seg Neutrophils # Man 13.8 H Lymphocytes # (Manual) Monocytes # (Manual) Eosinophils # (Manual) Basophils # (Manual) PT INR APTT Heparin Anti-Xa Level POC ABG pH POC ABG pCO2 32.2 L POC ABG pO2 128 H Sodium Potassium Chloride Carbon Dioxide BUN Creatinine Glucose POC Glucose 278 H Calcium Phosphorus Magnesium AST Alkaline Phosphatase Troponin T C-Reactive Protein Total Protein Albumin Triglycerides HDL Cholesterol Lipase Vitamin B12 TSH Urine WBC (Auto) Urine Chloride Urine Total Protein Vancomycin Trough Crossmatch 10/19/16 10/19/16 10/19/16 06:01 06:30 12:20 WBC RBC Hgb Hct MCV RDW Plt Count Lymph % (Auto) [place] % (Auto) [place] # Seg Neutrophils % Seg Neuts % (Manual) Lymphocytes % (Manual) Monocytes % (Manual) Basophils % (Manual) Nucleated RBC % Seg Neutrophils # Seg Neutrophils # Man Lymphocytes # (Manual) Monocytes # (Manual) Eosinophils # (Manual) Basophils # (Manual) PT INR APTT Heparin Anti-Xa Level POC ABG pH POC ABG pCO2 POC ABG pO2 Sodium Potassium Chloride Carbon Dioxide 18 L BUN Creatinine 1.3 H Glucose 262 H POC Glucose 261 H 349 H Calcium 7.7 L Phosphorus 4.8 H D Magnesium AST Alkaline Phosphatase Troponin T C-Reactive Protein Total Protein Albumin Triglycerides HDL Cholesterol Lipase Vitamin B12 TSH Urine WBC (Auto) Urine Chloride Urine Total Protein Vancomycin Trough Crossmatch 10/19/16 10/20/16 10/20/16 16:48 00:17 05:20 WBC 22.5 H RBC 2.80 L Hgb 8.9 L Hct 28.3 L MCV 101 H RDW Plt Count Lymph % (Auto) [place] % (Auto) [place] # Seg Neutrophils % Seg Neuts % (Manual) Lymphocytes % (Manual) 10.0 L Monocytes % (Manual) Basophils % (Manual) Nucleated RBC % Seg Neutrophils # Seg Neutrophils # Man 13.3 H Lymphocytes # (Manual) Monocytes # (Manual) 1.1 H Eosinophils # (Manual) 0.7 H Basophils # (Manual) PT INR APTT Heparin Anti-Xa Level POC ABG pH POC ABG pCO2 POC ABG pO2 Sodium Potassium Chloride Carbon Dioxide BUN Creatinine Glucose POC Glucose 248 H 346 H Calcium Phosphorus Magnesium AST Alkaline Phosphatase Troponin T C-Reactive Protein Total Protein Albumin Triglycerides HDL Cholesterol Lipase Vitamin B12 TSH Urine WBC (Auto) Urine Chloride Urine Total Protein Vancomycin Trough Crossmatch 10/20/16 10/20/16 10/20/16 05:20 05:20 06:05 WBC RBC Hgb Hct MCV RDW Plt Count Lymph % (Auto) [place] % (Auto) [place] # Seg Neutrophils % Seg Neuts % (Manual) Lymphocytes % (Manual) Monocytes % (Manual) Basophils % (Manual) Nucleated RBC % Seg Neutrophils # Seg Neutrophils # Man Lymphocytes # (Manual) Monocytes # (Manual) Eosinophils # (Manual) Basophils # (Manual) PT INR APTT Heparin Anti-Xa Level 0.20 L POC ABG pH POC ABG pCO2 POC ABG pO2 Sodium Potassium Chloride Carbon Dioxide BUN 20 H Creatinine Glucose 374 H POC Glucose 337 H Calcium 8.3 L Phosphorus Magnesium AST Alkaline Phosphatase Troponin T C-Reactive Protein Total Protein Albumin Triglycerides HDL Cholesterol Lipase Vitamin B12 TSH Urine WBC (Auto) Urine Chloride Urine Total Protein Vancomycin Trough Crossmatch 10/20/16 10/20/16 10/20/16 11:49 13:59 17:56 WBC RBC Hgb Hct MCV RDW Plt Count Lymph % (Auto) [place] % (Auto) [place] # Seg Neutrophils % Seg Neuts % (Manual) Lymphocytes % (Manual) Monocytes % (Manual) Basophils % (Manual) Nucleated RBC % Seg Neutrophils # Seg Neutrophils # Man Lymphocytes # (Manual) Monocytes # (Manual) Eosinophils # (Manual) Basophils # (Manual) PT INR APTT Heparin Anti-Xa Level 2.00 H POC ABG pH POC ABG pCO2 POC ABG pO2 Sodium Potassium Chloride Carbon Dioxide BUN Creatinine Glucose POC Glucose 305 H 362 H Calcium Phosphorus Magnesium AST Alkaline Phosphatase Troponin T C-Reactive Protein Total Protein Albumin Triglycerides HDL Cholesterol Lipase Vitamin B12 TSH Urine WBC (Auto) Urine Chloride Urine Total Protein Vancomycin Trough Crossmatch 10/20/16 10/21/16 10/21/16 23:52 05:00 05:49 WBC 22.9 H RBC 2.49 L Hgb 7.7 L Hct 25.6 L MCV 103 H RDW Plt Count Lymph % (Auto) [place] % (Auto) [place] # Seg Neutrophils % Seg Neuts % (Manual) 94.0 H Lymphocytes % (Manual) 1.0 L Monocytes % (Manual) Basophils % (Manual) Nucleated RBC % Seg Neutrophils # Seg Neutrophils # Man 21.5 H Lymphocytes # (Manual) 0.2 L Monocytes # (Manual) 1.1 H Eosinophils # (Manual) Basophils # (Manual) PT INR APTT Heparin Anti-Xa Level POC ABG pH POC ABG pCO2 POC ABG pO2 Sodium Potassium Chloride Carbon Dioxide BUN Creatinine Glucose POC Glucose 252 H 180 H Calcium Phosphorus Magnesium AST Alkaline Phosphatase Troponin T C-Reactive Protein Total Protein Albumin Triglycerides HDL Cholesterol Lipase Vitamin B12 TSH Urine WBC (Auto) Urine Chloride Urine Total Protein Vancomycin Trough Crossmatch 10/21/16 10/21/16 10/21/16 11:47 11:49 14:10 WBC RBC Hgb Hct MCV RDW Plt Count Lymph % (Auto) [place] % (Auto) [place] # Seg Neutrophils % Seg Neuts % (Manual) Lymphocytes % (Manual) Monocytes % (Manual) Basophils % (Manual) Nucleated RBC % Seg Neutrophils # Seg Neutrophils # Man Lymphocytes # (Manual) Monocytes # (Manual) Eosinophils # (Manual) Basophils # (Manual) PT INR APTT Heparin Anti-Xa Level POC ABG pH POC ABG pCO2 POC ABG pO2 Sodium Potassium Chloride Carbon Dioxide BUN Creatinine Glucose POC Glucose 50 L 56 L 140 H Calcium Phosphorus Magnesium AST Alkaline Phosphatase Troponin T C-Reactive Protein Total Protein Albumin Triglycerides HDL Cholesterol Lipase Vitamin B12 TSH Urine WBC (Auto) Urine Chloride Urine Total Protein Vancomycin Trough Crossmatch 10/21/16 10/21/16 10/22/16 18:24 Unknown 00:07 WBC RBC Hgb Hct MCV RDW Plt Count Lymph % (Auto) [place] % (Auto) [place] # Seg Neutrophils % Seg Neuts % (Manual) Lymphocytes % (Manual) Monocytes % (Manual) Basophils % (Manual) Nucleated RBC % Seg Neutrophils # Seg Neutrophils # Man Lymphocytes # (Manual) Monocytes # (Manual) Eosinophils # (Manual) Basophils # (Manual) PT INR APTT Heparin Anti-Xa Level POC ABG pH POC ABG pCO2 POC ABG pO2 Sodium 150 H Potassium 3.1 L Chloride 112.4 H Carbon Dioxide BUN 25 H Creatinine 1.4 H Glucose POC Glucose 175 H 218 H Calcium 8.0 L Phosphorus Magnesium AST Alkaline Phosphatase Troponin T C-Reactive Protein Total Protein Albumin Triglycerides HDL Cholesterol Lipase Vitamin B12 TSH Urine WBC (Auto) Urine Chloride Urine Total Protein Vancomycin Trough Crossmatch 10/22/16 10/22/16 10/22/16 04:20 04:20 10:25 WBC 20.8 H RBC 2.37 L Hgb 7.5 L Hct 23.9 L MCV 101 H RDW Plt Count Lymph % (Auto) [place] % (Auto) [place] # Seg Neutrophils % Seg Neuts % (Manual) 89.0 H Lymphocytes % (Manual) 7.0 L Monocytes % (Manual) Basophils % (Manual) Nucleated RBC % Seg Neutrophils # Seg Neutrophils # Man 18.5 H Lymphocytes # (Manual) Monocytes # (Manual) Eosinophils # (Manual) Basophils # (Manual) 0.2 H PT INR APTT Heparin Anti-Xa Level POC ABG pH POC ABG pCO2 POC ABG pO2 Sodium 148 H Potassium 2.9 L* Chloride 109.4 H Carbon Dioxide BUN 26 H Creatinine Glucose 140 H POC Glucose Calcium 7.5 L Phosphorus Magnesium AST Alkaline Phosphatase Troponin T C-Reactive Protein Total Protein Albumin Triglycerides HDL Cholesterol Lipase Vitamin B12 976.8 H TSH Urine WBC (Auto) Urine Chloride Urine Total Protein Vancomycin Trough Crossmatch 10/22/16 10/22/16 10/22/16 10:25 14:50 18:16 WBC RBC Hgb Hct MCV RDW Plt Count Lymph % (Auto) [place] % (Auto) [place] # Seg Neutrophils % Seg Neuts % (Manual) Lymphocytes % (Manual) Monocytes % (Manual) Basophils % (Manual) Nucleated RBC % Seg Neutrophils # Seg Neutrophils # Man Lymphocytes # (Manual) Monocytes # (Manual) Eosinophils # (Manual) Basophils # (Manual) PT INR APTT Heparin Anti-Xa Level POC ABG pH POC ABG pCO2 POC ABG pO2 Sodium Potassium Chloride Carbon Dioxide BUN Creatinine Glucose POC Glucose 193 H Calcium Phosphorus Magnesium AST Alkaline Phosphatase Troponin T C-Reactive Protein Total Protein Albumin Triglycerides HDL Cholesterol Lipase Vitamin B12 TSH 0.143 L 0.162 L Urine WBC (Auto) Urine Chloride Urine Total Protein Vancomycin Trough Crossmatch 10/22/16 10/22/16 10/22/16 20:00 20:00 20:00 WBC 24.1 H RBC 2.58 L Hgb 8.2 L Hct 26.4 L MCV 102 H RDW Plt Count Lymph % (Auto) [place] % (Auto) [place] # Seg Neutrophils % Seg Neuts % (Manual) 74.0 H Lymphocytes % (Manual) 7.0 L Monocytes % (Manual) Basophils % (Manual) Nucleated RBC % Seg Neutrophils # Seg Neutrophils # Man 17.8 H Lymphocytes # (Manual) Monocytes # (Manual) Eosinophils # (Manual) Basophils # (Manual) PT INR APTT Heparin Anti-Xa Level 1.92 H POC ABG pH POC ABG pCO2 POC ABG pO2 Sodium Potassium Chloride Carbon Dioxide BUN Creatinine Glucose POC Glucose Calcium Phosphorus Magnesium AST Alkaline Phosphatase Troponin T C-Reactive Protein Total Protein Albumin Triglycerides HDL Cholesterol Lipase Vitamin B12 TSH Urine WBC (Auto) Urine Chloride Urine Total Protein Vancomycin Trough Crossmatch See Detail 10/23/16 10/23/16 10/23/16 00:21 06:09 12:07 WBC RBC Hgb Hct MCV RDW Plt Count Lymph % (Auto) [place] % (Auto) [place] # Seg Neutrophils % Seg Neuts % (Manual) Lymphocytes % (Manual) Monocytes % (Manual) Basophils % (Manual) Nucleated RBC % Seg Neutrophils # Seg Neutrophils # Man Lymphocytes # (Manual) Monocytes # (Manual) Eosinophils # (Manual) Basophils # (Manual) PT INR APTT Heparin Anti-Xa Level POC ABG pH POC ABG pCO2 POC ABG pO2 Sodium Potassium Chloride Carbon Dioxide BUN Creatinine Glucose POC Glucose 283 H 241 H 340 H Calcium Phosphorus Magnesium AST Alkaline Phosphatase Troponin T C-Reactive Protein Total Protein Albumin Triglycerides HDL Cholesterol Lipase Vitamin B12 TSH Urine WBC (Auto) Urine Chloride Urine Total Protein Vancomycin Trough Crossmatch 10/23/16 10/23/16 10/23/16 14:01 16:00 17:59 WBC RBC Hgb Hct MCV RDW Plt Count Lymph % (Auto) [place] % (Auto) [place] # Seg Neutrophils % Seg Neuts % (Manual) Lymphocytes % (Manual) Monocytes % (Manual) Basophils % (Manual) Nucleated RBC % Seg Neutrophils # Seg Neutrophils # Man Lymphocytes # (Manual) Monocytes # (Manual) Eosinophils # (Manual) Basophils # (Manual) PT INR APTT Heparin Anti-Xa Level 0.19 L POC ABG pH POC ABG pCO2 32.4 L POC ABG pO2 Sodium Potassium Chloride Carbon Dioxide BUN Creatinine Glucose POC Glucose 245 H Calcium Phosphorus Magnesium AST Alkaline Phosphatase Troponin T C-Reactive Protein Total Protein Albumin Triglycerides HDL Cholesterol Lipase Vitamin B12 TSH Urine WBC (Auto) Urine Chloride Urine Total Protein Vancomycin Trough Crossmatch 10/23/16 10/23/16 10/23/16 22:55 Unknown Unknown WBC 22.6 H RBC 3.26 L Hgb Hct MCV RDW 17.1 H Plt Count Lymph % (Auto) [place] % (Auto) [place] # Seg Neutrophils % Seg Neuts % (Manual) Lymphocytes % (Manual) 11.0 L Monocytes % (Manual) Basophils % (Manual) Nucleated RBC % Seg Neutrophils # Seg Neutrophils # Man 14.0 H Lymphocytes # (Manual) Monocytes # (Manual) Eosinophils # (Manual) Basophils # (Manual) PT INR APTT Heparin Anti-Xa Level 0.17 L 0.15 L POC ABG pH POC ABG pCO2 POC ABG pO2 Sodium Potassium Chloride Carbon Dioxide BUN Creatinine Glucose POC Glucose Calcium Phosphorus Magnesium AST Alkaline Phosphatase Troponin T C-Reactive Protein Total Protein Albumin Triglycerides HDL Cholesterol Lipase Vitamin B12 TSH Urine WBC (Auto) Urine Chloride Urine Total Protein Vancomycin Trough Crossmatch 10/23/16 10/24/16 10/24/16 Unknown 00:05 05:30 WBC RBC Hgb Hct MCV RDW Plt Count Lymph % (Auto) [place] % (Auto) [place] # Seg Neutrophils % Seg Neuts % (Manual) Lymphocytes % (Manual) Monocytes % (Manual) Basophils % (Manual) Nucleated RBC % Seg Neutrophils # Seg Neutrophils # Man Lymphocytes # (Manual) Monocytes # (Manual) Eosinophils # (Manual) Basophils # (Manual) PT INR APTT Heparin Anti-Xa Level 0.13 L POC ABG pH POC ABG pCO2 POC ABG pO2 Sodium Potassium Chloride 111.2 H Carbon Dioxide 20 L BUN 25 H Creatinine Glucose 227 H POC Glucose 118 H Calcium 7.1 L Phosphorus Magnesium AST Alkaline Phosphatase Troponin T C-Reactive Protein Total Protein Albumin Triglycerides HDL Cholesterol Lipase Vitamin B12 TSH Urine WBC (Auto) Urine Chloride Urine Total Protein Vancomycin Trough Crossmatch 10/24/16 10/24/16 10/24/16 11:00 11:00 12:06 WBC 17.6 H RBC 2.92 L Hgb 9.2 L Hct 28.3 L MCV RDW 16.9 H Plt Count Lymph % (Auto) [place] % (Auto) [place] # Seg Neutrophils % Seg Neuts % (Manual) Lymphocytes % (Manual) Monocytes % (Manual) Basophils % (Manual) Nucleated RBC % Seg Neutrophils # Seg Neutrophils # Man Lymphocytes # (Manual) Monocytes # (Manual) Eosinophils # (Manual) Basophils # (Manual) PT INR APTT Heparin Anti-Xa Level 0.27 L POC ABG pH POC ABG pCO2 POC ABG pO2 Sodium Potassium Chloride Carbon Dioxide BUN Creatinine Glucose POC Glucose 166 H Calcium Phosphorus Magnesium AST Alkaline Phosphatase Troponin T C-Reactive Protein Total Protein Albumin Triglycerides HDL Cholesterol Lipase Vitamin B12 TSH Urine WBC (Auto) Urine Chloride Urine Total Protein Vancomycin Trough Crossmatch 10/24/16 10/25/16 10/25/16 12:27 00:49 03:30 WBC RBC Hgb 8.8 L Hct 28.1 L MCV RDW Plt Count Lymph % (Auto) [place] % (Auto) [place] # Seg Neutrophils % Seg Neuts % (Manual) Lymphocytes % (Manual) Monocytes % (Manual) Basophils % (Manual) Nucleated RBC % Seg Neutrophils # Seg Neutrophils # Man Lymphocytes # (Manual) Monocytes # (Manual) Eosinophils # (Manual) Basophils # (Manual) PT INR APTT Heparin Anti-Xa Level POC ABG pH POC ABG pCO2 33.9 L POC ABG pO2 Sodium Potassium Chloride Carbon Dioxide BUN Creatinine Glucose POC Glucose 121 H Calcium Phosphorus Magnesium AST Alkaline Phosphatase Troponin T C-Reactive Protein Total Protein Albumin Triglycerides HDL Cholesterol Lipase Vitamin B12 TSH Urine WBC (Auto) Urine Chloride Urine Total Protein Vancomycin Trough Crossmatch 10/25/16 10/25/16 10/25/16 09:49 12:10 19:25 WBC 21.1 H RBC 3.02 L Hgb 9.3 L Hct 28.9 L MCV RDW 16.3 H Plt Count Lymph % (Auto) [place] % (Auto) [place] # Seg Neutrophils % Seg Neuts % (Manual) 81.0 H Lymphocytes % (Manual) 9.0 L Monocytes % (Manual) Basophils % (Manual) Nucleated RBC % Seg Neutrophils # Seg Neutrophils # Man 17.1 H Lymphocytes # (Manual) Monocytes # (Manual) Eosinophils # (Manual) Basophils # (Manual) PT INR APTT Heparin Anti-Xa Level POC ABG pH POC ABG pCO2 POC ABG pO2 Sodium Potassium Chloride Carbon Dioxide BUN Creatinine Glucose POC Glucose 158 H 151 H Calcium Phosphorus Magnesium AST Alkaline Phosphatase Troponin T C-Reactive Protein Total Protein Albumin Triglycerides HDL Cholesterol Lipase Vitamin B12 TSH Urine WBC (Auto) Urine Chloride Urine Total Protein Vancomycin Trough Crossmatch 10/26/16 10/26/16 10/26/16 00:20 01:09 05:02 WBC 22.2 H RBC 2.89 L Hgb 8.7 L Hct 27.8 L MCV RDW 16.4 H Plt Count Lymph % (Auto) [place] % (Auto) [place] # Seg Neutrophils % Seg Neuts % (Manual) Lymphocytes % (Manual) Monocytes % (Manual) Basophils % (Manual) Nucleated RBC % Seg Neutrophils # Seg Neutrophils # Man Lymphocytes # (Manual) Monocytes # (Manual) Eosinophils # (Manual) Basophils # (Manual) PT INR APTT Heparin Anti-Xa Level POC ABG pH POC ABG pCO2 POC ABG pO2 Sodium Potassium Chloride Carbon Dioxide BUN Creatinine Glucose POC Glucose 44 L 112 H Calcium Phosphorus Magnesium AST Alkaline Phosphatase Troponin T C-Reactive Protein Total Protein Albumin Triglycerides HDL Cholesterol Lipase Vitamin B12 TSH Urine WBC (Auto) Urine Chloride Urine Total Protein Vancomycin Trough Crossmatch 10/26/16 10/26/16 10/26/16 05:02 12:11 12:14 WBC RBC Hgb Hct MCV RDW Plt Count Lymph % (Auto) [place] % (Auto) [place] # Seg Neutrophils % Seg Neuts % (Manual) Lymphocytes % (Manual) Monocytes % (Manual) Basophils % (Manual) Nucleated RBC % Seg Neutrophils # Seg Neutrophils # Man Lymphocytes # (Manual) Monocytes # (Manual) Eosinophils # (Manual) Basophils # (Manual) PT INR APTT Heparin Anti-Xa Level POC ABG pH POC ABG pCO2 32.0 L POC ABG pO2 33 L Sodium Potassium 3.2 L D Chloride Carbon Dioxide 20 L BUN 24 H Creatinine Glucose 104 H POC Glucose 194 H Calcium 7.7 L Phosphorus Magnesium AST Alkaline Phosphatase Troponin T C-Reactive Protein Total Protein Albumin Triglycerides HDL Cholesterol Lipase Vitamin B12 TSH Urine WBC (Auto) Urine Chloride Urine Total Protein Vancomycin Trough Crossmatch 10/26/16 10/26/16 10/27/16 15:28 17:23 00:04 WBC RBC Hgb Hct MCV RDW Plt Count Lymph % (Auto) [place] % (Auto) [place] # Seg Neutrophils % Seg Neuts % (Manual) Lymphocytes % (Manual) Monocytes % (Manual) Basophils % (Manual) Nucleated RBC % Seg Neutrophils # Seg Neutrophils # Man Lymphocytes # (Manual) Monocytes # (Manual) Eosinophils # (Manual) Basophils # (Manual) PT INR APTT Heparin Anti-Xa Level POC ABG pH POC ABG pCO2 33.7 L POC ABG pO2 Sodium Potassium Chloride Carbon Dioxide BUN Creatinine Glucose POC Glucose 181 H 230 H Calcium Phosphorus Magnesium AST Alkaline Phosphatase Troponin T C-Reactive Protein Total Protein Albumin Triglycerides HDL Cholesterol Lipase Vitamin B12 TSH Urine WBC (Auto) Urine Chloride Urine Total Protein Vancomycin Trough Crossmatch 10/27/16 10/27/16 10/27/16 05:15 05:15 05:38 WBC 25.5 H RBC 3.07 L Hgb 9.4 L Hct 30.1 L MCV 98 H RDW 16.4 H Plt Count 527 H Lymph % (Auto) [place] % (Auto) [place] # Seg Neutrophils % Seg Neuts % (Manual) Lymphocytes % (Manual) Monocytes % (Manual) Basophils % (Manual) Nucleated RBC % Seg Neutrophils # Seg Neutrophils # Man Lymphocytes # (Manual) Monocytes # (Manual) Eosinophils # (Manual) Basophils # (Manual) PT INR APTT Heparin Anti-Xa Level POC ABG pH POC ABG pCO2 POC ABG pO2 Sodium Potassium Chloride Carbon Dioxide 19 L BUN 23 H Creatinine Glucose 160 H POC Glucose 168 H Calcium 8.0 L Phosphorus Magnesium AST Alkaline Phosphatase Troponin T C-Reactive Protein Total Protein Albumin Triglycerides HDL Cholesterol Lipase Vitamin B12 TSH Urine WBC (Auto) Urine Chloride Urine Total Protein Vancomycin Trough Crossmatch 10/27/16 10/27/16 10/27/16 11:59 18:35 23:48 WBC RBC Hgb Hct MCV RDW Plt Count Lymph % (Auto) [place] % (Auto) [place] # Seg Neutrophils % Seg Neuts % (Manual) Lymphocytes % (Manual) Monocytes % (Manual) Basophils % (Manual) Nucleated RBC % Seg Neutrophils # Seg Neutrophils # Man Lymphocytes # (Manual) Monocytes # (Manual) Eosinophils # (Manual) Basophils # (Manual) PT INR APTT Heparin Anti-Xa Level POC ABG pH POC ABG pCO2 POC ABG pO2 Sodium Potassium Chloride Carbon Dioxide BUN Creatinine Glucose POC Glucose 197 H 318 H 316 H Calcium Phosphorus Magnesium AST Alkaline Phosphatase Troponin T C-Reactive Protein Total Protein Albumin Triglycerides HDL Cholesterol Lipase Vitamin B12 TSH Urine WBC (Auto) Urine Chloride Urine Total Protein Vancomycin Trough Crossmatch 10/28/16 10/28/16 10/28/16 03:13 04:10 04:10 WBC 18.8 H RBC 2.64 L Hgb 8.1 L Hct 26.1 L MCV 99 H RDW 16.2 H Plt Count 544 H Lymph % (Auto) [place] % (Auto) [place] # Seg Neutrophils % Seg Neuts % (Manual) Lymphocytes % (Manual) Monocytes % (Manual) Basophils % (Manual) Nucleated RBC % Seg Neutrophils # Seg Neutrophils # Man Lymphocytes # (Manual) Monocytes # (Manual) Eosinophils # (Manual) Basophils # (Manual) PT INR APTT Heparin Anti-Xa Level POC ABG pH POC ABG pCO2 POC ABG pO2 Sodium Potassium Chloride Carbon Dioxide 21 L BUN 24 H Creatinine Glucose 302 H POC Glucose 304 H Calcium 7.7 L Phosphorus Magnesium AST Alkaline Phosphatase Troponin T C-Reactive Protein Total Protein Albumin Triglycerides HDL Cholesterol Lipase Vitamin B12 TSH Urine WBC (Auto) Urine Chloride Urine Total Protein Vancomycin Trough Crossmatch 10/28/16 10/28/16 10/28/16 04:10 12:36 18:27 WBC RBC Hgb Hct MCV RDW Plt Count Lymph % (Auto) [place] % (Auto) [place] # Seg Neutrophils % Seg Neuts % (Manual) Lymphocytes % (Manual) Monocytes % (Manual) Basophils % (Manual) Nucleated RBC % Seg Neutrophils # Seg Neutrophils # Man Lymphocytes # (Manual) Monocytes # (Manual) Eosinophils # (Manual) Basophils # (Manual) PT INR APTT Heparin Anti-Xa Level 0.20 L POC ABG pH POC ABG pCO2 POC ABG pO2 Sodium Potassium Chloride Carbon Dioxide BUN Creatinine Glucose POC Glucose 205 H 339 H Calcium Phosphorus Magnesium AST Alkaline Phosphatase Troponin T C-Reactive Protein Total Protein Albumin Triglycerides HDL Cholesterol Lipase Vitamin B12 TSH Urine WBC (Auto) Urine Chloride Urine Total Protein Vancomycin Trough Crossmatch 10/29/16 10/29/16 10/29/16 01:05 06:19 09:30 WBC 20.3 H RBC 2.80 L Hgb 8.5 L Hct 26.7 L MCV RDW 15.4 H Plt Count 571 H Lymph % (Auto) [place] % (Auto) [place] # Seg Neutrophils % Seg Neuts % (Manual) 75.0 H Lymphocytes % (Manual) 4.0 L Monocytes % (Manual) Basophils % (Manual) Nucleated RBC % Seg Neutrophils # Seg Neutrophils # Man 15.2 H Lymphocytes # (Manual) 0.8 L Monocytes # (Manual) Eosinophils # (Manual) Basophils # (Manual) PT INR APTT Heparin Anti-Xa Level POC ABG pH POC ABG pCO2 POC ABG pO2 Sodium Potassium Chloride Carbon Dioxide BUN Creatinine Glucose POC Glucose 275 H 179 H Calcium Phosphorus Magnesium AST Alkaline Phosphatase Troponin T C-Reactive Protein Total Protein Albumin Triglycerides HDL Cholesterol Lipase Vitamin B12 TSH Urine WBC (Auto) Urine Chloride Urine Total Protein Vancomycin Trough Crossmatch 10/29/16 10/29/16 10/29/16 11:46 15:18 17:55 WBC RBC Hgb Hct MCV RDW Plt Count Lymph % (Auto) [place] % (Auto) [place] # Seg Neutrophils % Seg Neuts % (Manual) Lymphocytes % (Manual) Monocytes % (Manual) Basophils % (Manual) Nucleated RBC % Seg Neutrophils # Seg Neutrophils # Man Lymphocytes # (Manual) Monocytes # (Manual) Eosinophils # (Manual) Basophils # (Manual) PT INR APTT Heparin Anti-Xa Level 1.15 H POC ABG pH POC ABG pCO2 POC ABG pO2 Sodium Potassium Chloride Carbon Dioxide BUN Creatinine Glucose POC Glucose 122 H 255 H Calcium Phosphorus Magnesium AST Alkaline Phosphatase Troponin T C-Reactive Protein Total Protein Albumin Triglycerides HDL Cholesterol Lipase Vitamin B12 TSH Urine WBC (Auto) Urine Chloride Urine Total Protein Vancomycin Trough Crossmatch 10/30/16 10/30/16 10/30/16 00:10 05:30 05:30 WBC 19.8 H RBC 2.51 L Hgb 7.7 L Hct 24.1 L MCV RDW 15.5 H Plt Count 534 H Lymph % (Auto) [place] % (Auto) [place] # Seg Neutrophils % Seg Neuts % (Manual) Lymphocytes % (Manual) Monocytes % (Manual) Basophils % (Manual) Nucleated RBC % Seg Neutrophils # Seg Neutrophils # Man Lymphocytes # (Manual) Monocytes # (Manual) Eosinophils # (Manual) Basophils # (Manual) PT INR APTT Heparin Anti-Xa Level POC ABG pH POC ABG pCO2 POC ABG pO2 Sodium Potassium Chloride Carbon Dioxide BUN Creatinine Glucose 211 H POC Glucose 202 H Calcium 7.4 L Phosphorus Magnesium AST Alkaline Phosphatase Troponin T C-Reactive Protein Total Protein Albumin Triglycerides HDL Cholesterol Lipase Vitamin B12 TSH Urine WBC (Auto) Urine Chloride Urine Total Protein Vancomycin Trough Crossmatch 10/30/16 10/30/16 10/30/16 06:32 12:51 17:47 WBC RBC Hgb Hct MCV RDW Plt Count Lymph % (Auto) [place] % (Auto) [place] # Seg Neutrophils % Seg Neuts % (Manual) Lymphocytes % (Manual) Monocytes % (Manual) Basophils % (Manual) Nucleated RBC % Seg Neutrophils # Seg Neutrophils # Man Lymphocytes # (Manual) Monocytes # (Manual) Eosinophils # (Manual) Basophils # (Manual) PT INR APTT Heparin Anti-Xa Level POC ABG pH POC ABG pCO2 POC ABG pO2 Sodium Potassium Chloride Carbon Dioxide BUN Creatinine Glucose POC Glucose 207 H 218 H 169 H Calcium Phosphorus Magnesium AST Alkaline Phosphatase Troponin T C-Reactive Protein Total Protein Albumin Triglycerides HDL Cholesterol Lipase Vitamin B12 TSH Urine WBC (Auto) Urine Chloride Urine Total Protein Vancomycin Trough Crossmatch 10/30/16 10/31/16 10/31/16 23:59 05:25 11:21 WBC RBC Hgb Hct MCV RDW Plt Count Lymph % (Auto) [place] % (Auto) [place] # Seg Neutrophils % Seg Neuts % (Manual) Lymphocytes % (Manual) Monocytes % (Manual) Basophils % (Manual) Nucleated RBC % Seg Neutrophils # Seg Neutrophils # Man Lymphocytes # (Manual) Monocytes # (Manual) Eosinophils # (Manual) Basophils # (Manual) PT INR APTT Heparin Anti-Xa Level POC ABG pH POC ABG pCO2 POC ABG pO2 Sodium Potassium Chloride Carbon Dioxide BUN Creatinine Glucose POC Glucose 138 H 127 H 132 H Calcium Phosphorus Magnesium AST Alkaline Phosphatase Troponin T C-Reactive Protein Total Protein Albumin Triglycerides HDL Cholesterol Lipase Vitamin B12 TSH Urine WBC (Auto) Urine Chloride Urine Total Protein Vancomycin Trough Crossmatch 10/31/16 10/31/16 11/01/16 17:07 23:54 05:47 WBC RBC Hgb Hct MCV RDW Plt Count Lymph % (Auto) [place] % (Auto) [place] # Seg Neutrophils % Seg Neuts % (Manual) Lymphocytes % (Manual) Monocytes % (Manual) Basophils % (Manual) Nucleated RBC % Seg Neutrophils # Seg Neutrophils # Man Lymphocytes # (Manual) Monocytes # (Manual) Eosinophils # (Manual) Basophils # (Manual) PT INR APTT Heparin Anti-Xa Level POC ABG pH POC ABG pCO2 POC ABG pO2 Sodium Potassium Chloride Carbon Dioxide BUN Creatinine Glucose POC Glucose 138 H 153 H 150 H Calcium Phosphorus Magnesium AST Alkaline Phosphatase Troponin T C-Reactive Protein Total Protein Albumin Triglycerides HDL Cholesterol Lipase Vitamin B12 TSH Urine WBC (Auto) Urine Chloride Urine Total Protein Vancomycin Trough Crossmatch 11/01/16 11/01/16 11/01/16 06:33 06:33 12:16 WBC 19.2 H RBC 2.51 L Hgb 7.9 L Hct 24.8 L MCV 99 H D RDW 16.1 H Plt Count 569 H Lymph % (Auto) [place] % (Auto) [place] # Seg Neutrophils % Seg Neuts % (Manual) Lymphocytes % (Manual) Monocytes % (Manual) Basophils % (Manual) Nucleated RBC % Seg Neutrophils # Seg Neutrophils # Man Lymphocytes # (Manual) Monocytes # (Manual) Eosinophils # (Manual) Basophils # (Manual) PT INR APTT Heparin Anti-Xa Level POC ABG pH POC ABG pCO2 POC ABG pO2 Sodium Potassium 3.5 L Chloride Carbon Dioxide 21 L BUN Creatinine Glucose 137 H POC Glucose 125 H Calcium 7.7 L Phosphorus Magnesium AST Alkaline Phosphatase 148 H Troponin T C-Reactive Protein Total Protein 6.2 L Albumin 2.0 L Triglycerides HDL Cholesterol Lipase Vitamin B12 TSH Urine WBC (Auto) Urine Chloride Urine Total Protein Vancomycin Trough Crossmatch 11/01/16 11/02/16 11/02/16 17:37 00:05 04:15 WBC RBC Hgb Hct MCV RDW Plt Count Lymph % (Auto) [place] % (Auto) [place] # Seg Neutrophils % Seg Neuts % (Manual) Lymphocytes % (Manual) Monocytes % (Manual) Basophils % (Manual) Nucleated RBC % Seg Neutrophils # Seg Neutrophils # Man Lymphocytes # (Manual) Monocytes # (Manual) Eosinophils # (Manual) Basophils # (Manual) PT INR APTT Heparin Anti-Xa Level < 0.10 L POC ABG pH POC ABG pCO2 POC ABG pO2 Sodium Potassium 3.2 L Chloride Carbon Dioxide BUN 6 L Creatinine Glucose 135 H POC Glucose 164 H Calcium 7.5 L Phosphorus Magnesium AST Alkaline Phosphatase 132 H Troponin T C-Reactive Protein Total Protein 6.2 L Albumin 1.8 L Triglycerides HDL Cholesterol Lipase Vitamin B12 TSH Urine WBC (Auto) Urine Chloride Urine Total Protein Vancomycin Trough Crossmatch 11/02/16 11/02/16 11/02/16 04:15 05:54 12:15 WBC 17.7 H RBC 2.43 L Hgb 7.6 L Hct 23.5 L MCV RDW 15.9 H Plt Count 502 H Lymph % (Auto) [place] % (Auto) [place] # Seg Neutrophils % Seg Neuts % (Manual) 84.0 H Lymphocytes % (Manual) 11.0 L Monocytes % (Manual) Basophils % (Manual) Nucleated RBC % 1.0 H Seg Neutrophils # Seg Neutrophils # Man 14.9 H Lymphocytes # (Manual) Monocytes # (Manual) Eosinophils # (Manual) Basophils # (Manual) PT INR APTT Heparin Anti-Xa Level POC ABG pH POC ABG pCO2 POC ABG pO2 Sodium Potassium Chloride Carbon Dioxide BUN Creatinine Glucose POC Glucose 152 H 137 H Calcium Phosphorus Magnesium AST Alkaline Phosphatase Troponin T C-Reactive Protein Total Protein Albumin Triglycerides HDL Cholesterol Lipase Vitamin B12 TSH Urine WBC (Auto) Urine Chloride Urine Total Protein Vancomycin Trough Crossmatch 11/02/16 11/03/16 11/03/16 17:00 00:05 00:05 WBC RBC Hgb Hct MCV RDW Plt Count Lymph % (Auto) [place] % (Auto) [place] # Seg Neutrophils % Seg Neuts % (Manual) Lymphocytes % (Manual) Monocytes % (Manual) Basophils % (Manual) Nucleated RBC % Seg Neutrophils # Seg Neutrophils # Man Lymphocytes # (Manual) Monocytes # (Manual) Eosinophils # (Manual) Basophils # (Manual) PT INR APTT Heparin Anti-Xa Level POC ABG pH POC ABG pCO2 POC ABG pO2 Sodium Potassium Chloride Carbon Dioxide 20 L BUN 5 L Creatinine Glucose 139 H POC Glucose 161 H Calcium 6.7 L Phosphorus Magnesium 1.2 L AST Alkaline Phosphatase Troponin T C-Reactive Protein Total Protein Albumin Triglycerides HDL Cholesterol Lipase Vitamin B12 TSH Urine WBC (Auto) Urine Chloride Urine Total Protein Vancomycin Trough Crossmatch 11/03/16 11/03/16 11/03/16 00:05 02:05 04:23 WBC 15.9 H 14.0 H RBC 1.93 L 2.38 L Hgb 5.9 L* 7.3 L Hct 18.9 L* 23.1 L MCV 98 H RDW 15.9 H 15.9 H Plt Count Lymph % (Auto) [place] % (Auto) [place] # Seg Neutrophils % Seg Neuts % (Manual) 85.0 H Lymphocytes % (Manual) 4.0 L Monocytes % (Manual) Basophils % (Manual) Nucleated RBC % Seg Neutrophils # Seg Neutrophils # Man 13.5 H Lymphocytes # (Manual) 0.6 L Monocytes # (Manual) Eosinophils # (Manual) Basophils # (Manual) PT INR APTT Heparin Anti-Xa Level POC ABG pH POC ABG pCO2 POC ABG pO2 Sodium Potassium Chloride Carbon Dioxide BUN 5 L Creatinine Glucose 127 H POC Glucose Calcium 7.2 L Phosphorus Magnesium AST Alkaline Phosphatase Troponin T C-Reactive Protein Total Protein 5.8 L Albumin 1.5 L Triglycerides HDL Cholesterol Lipase Vitamin B12 TSH Urine WBC (Auto) Urine Chloride Urine Total Protein Vancomycin Trough Crossmatch 11/03/16 11/03/16 11/03/16 09:14 09:27 11:54 WBC RBC Hgb Hct MCV RDW Plt Count Lymph % (Auto) [place] % (Auto) [place] # Seg Neutrophils % Seg Neuts % (Manual) Lymphocytes % (Manual) Monocytes % (Manual) Basophils % (Manual) Nucleated RBC % Seg Neutrophils # Seg Neutrophils # Man Lymphocytes # (Manual) Monocytes # (Manual) Eosinophils # (Manual) Basophils # (Manual) PT INR APTT Heparin Anti-Xa Level 0.11 L POC ABG pH POC ABG pCO2 POC ABG pO2 Sodium Potassium Chloride Carbon Dioxide BUN 5 L Creatinine Glucose 111 H POC Glucose 139 H Calcium 6.7 L Phosphorus Magnesium AST Alkaline Phosphatase Troponin T C-Reactive Protein Total Protein Albumin Triglycerides HDL Cholesterol Lipase Vitamin B12 TSH Urine WBC (Auto) Urine Chloride Urine Total Protein Vancomycin Trough Crossmatch 11/03/16 11/03/16 11/03/16 16:26 18:01 18:01 WBC RBC Hgb Hct MCV RDW Plt Count Lymph % (Auto) [place] % (Auto) [place] # Seg Neutrophils % Seg Neuts % (Manual) Lymphocytes % (Manual) Monocytes % (Manual) Basophils % (Manual) Nucleated RBC % Seg Neutrophils # Seg Neutrophils # Man Lymphocytes # (Manual) Monocytes # (Manual) Eosinophils # (Manual) Basophils # (Manual) PT INR APTT Heparin Anti-Xa Level 2.00 H POC ABG pH POC ABG pCO2 POC ABG pO2 Sodium Potassium Chloride Carbon Dioxide BUN Creatinine Glucose POC Glucose 142 H Calcium Phosphorus Magnesium AST Alkaline Phosphatase Troponin T C-Reactive Protein Total Protein Albumin Triglycerides HDL Cholesterol Lipase Vitamin B12 TSH Urine WBC (Auto) Urine Chloride Urine Total Protein Vancomycin Trough Crossmatch See Detail 11/04/16 11/04/16 11/04/16 02:15 02:15 06:35 WBC 11.8 H RBC 2.39 L Hgb 7.4 L Hct 23.1 L MCV RDW 15.9 H Plt Count Lymph % (Auto) [place] % (Auto) [place] # Seg Neutrophils % Seg Neuts % (Manual) 76.0 H Lymphocytes % (Manual) 12.0 L Monocytes % (Manual) 9.0 H Basophils % (Manual) Nucleated RBC % Seg Neutrophils # Seg Neutrophils # Man 9.0 H Lymphocytes # (Manual) Monocytes # (Manual) 1.1 H Eosinophils # (Manual) Basophils # (Manual) PT INR APTT Heparin Anti-Xa Level < 0.10 L POC ABG pH POC ABG pCO2 POC ABG pO2 Sodium Potassium Chloride Carbon Dioxide 21 L BUN 5 L Creatinine Glucose 112 H POC Glucose Calcium 6.8 L Phosphorus Magnesium AST Alkaline Phosphatase Troponin T C-Reactive Protein Total Protein 5.7 L Albumin 1.7 L Triglycerides HDL Cholesterol Lipase Vitamin B12 TSH Urine WBC (Auto) Urine Chloride Urine Total Protein Vancomycin Trough Crossmatch 11/04/16 11/04/16 11/04/16 10:51 12:58 15:04 WBC RBC Hgb Hct MCV RDW Plt Count Lymph % (Auto) [place] % (Auto) [place] # Seg Neutrophils % Seg Neuts % (Manual) Lymphocytes % (Manual) Monocytes % (Manual) Basophils % (Manual) Nucleated RBC % Seg Neutrophils # Seg Neutrophils # Man Lymphocytes # (Manual) Monocytes # (Manual) Eosinophils # (Manual) Basophils # (Manual) PT INR APTT Heparin Anti-Xa Level 1.05 H POC ABG pH POC ABG pCO2 33.7 L POC ABG pO2 60 L Sodium Potassium Chloride Carbon Dioxide BUN Creatinine Glucose POC Glucose 118 H Calcium Phosphorus Magnesium AST Alkaline Phosphatase Troponin T C-Reactive Protein Total Protein Albumin Triglycerides HDL Cholesterol Lipase Vitamin B12 TSH Urine WBC (Auto) Urine Chloride Urine Total Protein Vancomycin Trough Crossmatch 11/04/16 11/04/16 11/05/16 17:20 20:31 02:30 WBC RBC Hgb Hct MCV RDW Plt Count Lymph % (Auto) [place] % (Auto) [place] # Seg Neutrophils % Seg Neuts % (Manual) Lymphocytes % (Manual) Monocytes % (Manual) Basophils % (Manual) Nucleated RBC % Seg Neutrophils # Seg Neutrophils # Man Lymphocytes # (Manual) Monocytes # (Manual) Eosinophils # (Manual) Basophils # (Manual) PT INR APTT Heparin Anti-Xa Level POC ABG pH POC ABG pCO2 POC ABG pO2 Sodium Potassium 3.5 L Chloride Carbon Dioxide 18 L BUN 5 L Creatinine 0.6 L Glucose 110 H POC Glucose 228 H 169 H Calcium 7.1 L Phosphorus Magnesium AST Alkaline Phosphatase Troponin T C-Reactive Protein Total Protein Albumin 1.9 L Triglycerides HDL Cholesterol Lipase Vitamin B12 TSH Urine WBC (Auto) Urine Chloride Urine Total Protein Vancomycin Trough Crossmatch 11/05/16 11/05/16 11/05/16 02:30 17:52 21:07 WBC 14.1 H RBC Hgb Hct MCV RDW 16.7 H Plt Count Lymph % (Auto) [place] % (Auto) [place] # Seg Neutrophils % Seg Neuts % (Manual) 80.0 H Lymphocytes % (Manual) 6.0 L Monocytes % (Manual) 8.0 H Basophils % (Manual) Nucleated RBC % Seg Neutrophils # Seg Neutrophils # Man 11.3 H Lymphocytes # (Manual) 0.8 L Monocytes # (Manual) 1.1 H Eosinophils # (Manual) Basophils # (Manual) PT INR APTT Heparin Anti-Xa Level < 0.10 L POC ABG pH POC ABG pCO2 POC ABG pO2 Sodium Potassium Chloride Carbon Dioxide BUN Creatinine Glucose POC Glucose 174 H Calcium Phosphorus Magnesium AST Alkaline Phosphatase Troponin T C-Reactive Protein Total Protein Albumin Triglycerides HDL Cholesterol Lipase Vitamin B12 TSH Urine WBC (Auto) Urine Chloride Urine Total Protein Vancomycin Trough Crossmatch 11/05/16 11/06/16 11/06/16 23:30 05:00 05:00 WBC 15.2 H RBC 3.29 L Hgb 10.0 L Hct MCV RDW 16.9 H Plt Count Lymph % (Auto) [place] % (Auto) [place] # Seg Neutrophils % Seg Neuts % (Manual) Lymphocytes % (Manual) Monocytes % (Manual) Basophils % (Manual) Nucleated RBC % Seg Neutrophils # Seg Neutrophils # Man Lymphocytes # (Manual) Monocytes # (Manual) Eosinophils # (Manual) Basophils # (Manual) PT INR APTT Heparin Anti-Xa Level 0.94 H POC ABG pH POC ABG pCO2 POC ABG pO2 Sodium Potassium Chloride Carbon Dioxide BUN Creatinine Glucose POC Glucose 131 H Calcium Phosphorus Magnesium AST Alkaline Phosphatase Troponin T C-Reactive Protein Total Protein Albumin Triglycerides HDL Cholesterol Lipase Vitamin B12 TSH Urine WBC (Auto) Urine Chloride Urine Total Protein Vancomycin Trough Crossmatch 11/06/16 11/06/16 11/06/16 05:00 11:45 18:23 WBC RBC Hgb Hct MCV RDW Plt Count Lymph % (Auto) [place] % (Auto) [place] # Seg Neutrophils % Seg Neuts % (Manual) Lymphocytes % (Manual) Monocytes % (Manual) Basophils % (Manual) Nucleated RBC % Seg Neutrophils # Seg Neutrophils # Man Lymphocytes # (Manual) Monocytes # (Manual) Eosinophils # (Manual) Basophils # (Manual) PT INR APTT Heparin Anti-Xa Level POC ABG pH POC ABG pCO2 POC ABG pO2 Sodium Potassium 3.5 L Chloride 107.1 H Carbon Dioxide 20 L BUN 4 L Creatinine 0.6 L Glucose 104 H POC Glucose 141 H 255 H Calcium 6.7 L Phosphorus Magnesium AST Alkaline Phosphatase Troponin T C-Reactive Protein Total Protein Albumin Triglycerides HDL Cholesterol Lipase Vitamin B12 TSH Urine WBC (Auto) Urine Chloride Urine Total Protein Vancomycin Trough Crossmatch 11/06/16 11/06/16 11/07/16 22:07 23:07 11:41 WBC RBC Hgb Hct MCV RDW Plt Count Lymph % (Auto) [place] % (Auto) [place] # Seg Neutrophils % Seg Neuts % (Manual) Lymphocytes % (Manual) Monocytes % (Manual) Basophils % (Manual) Nucleated RBC % Seg Neutrophils # Seg Neutrophils # Man Lymphocytes # (Manual) Monocytes # (Manual) Eosinophils # (Manual) Basophils # (Manual) PT INR APTT Heparin Anti-Xa Level 0.80 H POC ABG pH POC ABG pCO2 POC ABG pO2 Sodium Potassium Chloride Carbon Dioxide BUN Creatinine Glucose POC Glucose 183 H 132 H Calcium Phosphorus Magnesium AST Alkaline Phosphatase Troponin T C-Reactive Protein Total Protein Albumin Triglycerides HDL Cholesterol Lipase Vitamin B12 TSH Urine WBC (Auto) Urine Chloride Urine Total Protein Vancomycin Trough Crossmatch 11/07/16 11/07/16 11/07/16 12:17 17:05 17:58 WBC RBC Hgb Hct MCV RDW Plt Count Lymph % (Auto) [place] % (Auto) [place] # Seg Neutrophils % Seg Neuts % (Manual) Lymphocytes % (Manual) Monocytes % (Manual) Basophils % (Manual) Nucleated RBC % Seg Neutrophils # Seg Neutrophils # Man Lymphocytes # (Manual) Monocytes # (Manual) Eosinophils # (Manual) Basophils # (Manual) PT INR APTT Heparin Anti-Xa Level 0.87 H POC ABG pH 7.324 L POC ABG pCO2 POC ABG pO2 Sodium Potassium Chloride Carbon Dioxide BUN Creatinine Glucose POC Glucose 158 H Calcium Phosphorus Magnesium AST Alkaline Phosphatase Troponin T C-Reactive Protein Total Protein Albumin Triglycerides HDL Cholesterol Lipase Vitamin B12 TSH Urine WBC (Auto) Urine Chloride Urine Total Protein Vancomycin Trough Crossmatch 11/07/16 11/07/16 11/07/16 23:26 Unknown Unknown WBC 12.3 H RBC 2.96 L Hgb 9.1 L Hct 27.9 L MCV RDW 16.8 H Plt Count Lymph % (Auto) [place] % (Auto) [place] # Seg Neutrophils % Seg Neuts % (Manual) 80.0 H Lymphocytes % (Manual) 7.0 L Monocytes % (Manual) Basophils % (Manual) Nucleated RBC % Seg Neutrophils # Seg Neutrophils # Man 9.8 H Lymphocytes # (Manual) 0.9 L Monocytes # (Manual) Eosinophils # (Manual) Basophils # (Manual) PT INR APTT Heparin Anti-Xa Level POC ABG pH POC ABG pCO2 POC ABG pO2 Sodium Potassium Chloride Carbon Dioxide 19 L BUN Creatinine Glucose 106 H POC Glucose 130 H Calcium 6.9 L Phosphorus Magnesium AST Alkaline Phosphatase Troponin T C-Reactive Protein Total Protein Albumin Triglycerides HDL Cholesterol Lipase Vitamin B12 TSH Urine WBC (Auto) Urine Chloride Urine Total Protein Vancomycin Trough Crossmatch 11/07/16 11/08/16 11/08/16 Unknown 05:14 05:20 WBC 12.4 H RBC 3.04 L Hgb 9.2 L Hct 28.8 L MCV RDW 16.6 H Plt Count Lymph % (Auto) [place] % (Auto) [place] # Seg Neutrophils % Seg Neuts % (Manual) 77.0 H Lymphocytes % (Manual) 5.0 L Monocytes % (Manual) Basophils % (Manual) 2.0 H Nucleated RBC % Seg Neutrophils # Seg Neutrophils # Man 9.5 H Lymphocytes # (Manual) 0.6 L Monocytes # (Manual) Eosinophils # (Manual) Basophils # (Manual) 0.2 H PT INR APTT Heparin Anti-Xa Level 0.90 H POC ABG pH POC ABG pCO2 POC ABG pO2 Sodium Potassium Chloride Carbon Dioxide BUN Creatinine Glucose POC Glucose 204 H Calcium Phosphorus Magnesium AST Alkaline Phosphatase Troponin T C-Reactive Protein Total Protein Albumin Triglycerides HDL Cholesterol Lipase Vitamin B12 TSH Urine WBC (Auto) Urine Chloride Urine Total Protein Vancomycin Trough Crossmatch 11/08/16 11/08/16 11/08/16 05:20 12:10 13:10 WBC RBC Hgb Hct MCV RDW Plt Count Lymph % (Auto) [place] % (Auto) [place] # Seg Neutrophils % Seg Neuts % (Manual) Lymphocytes % (Manual) Monocytes % (Manual) Basophils % (Manual) Nucleated RBC % Seg Neutrophils # Seg Neutrophils # Man Lymphocytes # (Manual) Monocytes # (Manual) Eosinophils # (Manual) Basophils # (Manual) PT INR APTT Heparin Anti-Xa Level POC ABG pH POC ABG pCO2 33.7 L POC ABG pO2 Sodium 136 L Potassium Chloride Carbon Dioxide 19 L BUN Creatinine Glucose 192 H POC Glucose 180 H Calcium 7.1 L Phosphorus Magnesium AST Alkaline Phosphatase Troponin T C-Reactive Protein Total Protein Albumin Triglycerides HDL Cholesterol Lipase Vitamin B12 TSH Urine WBC (Auto) Urine Chloride Urine Total Protein Vancomycin Trough Crossmatch 11/08/16 11/08/16 11/08/16 17:26 20:45 23:34 WBC RBC Hgb Hct MCV RDW Plt Count Lymph % (Auto) [place] % (Auto) [place] # Seg Neutrophils % Seg Neuts % (Manual) Lymphocytes % (Manual) Monocytes % (Manual) Basophils % (Manual) Nucleated RBC % Seg Neutrophils # Seg Neutrophils # Man Lymphocytes # (Manual) Monocytes # (Manual) Eosinophils # (Manual) Basophils # (Manual) PT INR APTT Heparin Anti-Xa Level POC ABG pH POC ABG pCO2 POC ABG pO2 Sodium Potassium Chloride Carbon Dioxide BUN Creatinine Glucose POC Glucose 187 H 178 H Calcium Phosphorus Magnesium AST Alkaline Phosphatase Troponin T C-Reactive Protein Total Protein Albumin Triglycerides HDL Cholesterol Lipase Vitamin B12 TSH Urine WBC (Auto) Urine Chloride Urine Total Protein Vancomycin Trough 35.4 H Crossmatch 03/24/17 03/24/17 03/24/17 05:30 05:30 05:59 WBC 11.5 H RBC 2.96 L Hgb 9.2 L Hct 28.2 L MCV RDW 16.4 H Plt Count Lymph % (Auto) [place] % (Auto) [place] # Seg Neutrophils % Seg Neuts % (Manual) 76.0 H Lymphocytes % (Manual) 2.0 L Monocytes % (Manual) Basophils % (Manual) Nucleated RBC % Seg Neutrophils # Seg Neutrophils # Man 8.7 H Lymphocytes # (Manual) 0.2 L Monocytes # (Manual) Eosinophils # (Manual) Basophils # (Manual) PT INR APTT Heparin Anti-Xa Level POC ABG pH POC ABG pCO2 POC ABG pO2 Sodium Potassium 3.4 L Chloride 107.6 H Carbon Dioxide 19 L BUN Creatinine 0.6 L Glucose 207 H POC Glucose 263 H Calcium 7.3 L Phosphorus Magnesium AST Alkaline Phosphatase Troponin T C-Reactive Protein Total Protein Albumin Triglycerides HDL Cholesterol Lipase Vitamin B12 TSH Urine WBC (Auto) Urine Chloride Urine Total Protein Vancomycin Trough Crossmatch 11/09/16 11/09/16 11/09/16 11:49 15:24 18:04 WBC RBC Hgb Hct MCV RDW Plt Count Lymph % (Auto) [place] % (Auto) [place] # Seg Neutrophils % Seg Neuts % (Manual) Lymphocytes % (Manual) Monocytes % (Manual) Basophils % (Manual) Nucleated RBC % Seg Neutrophils # Seg Neutrophils # Man Lymphocytes # (Manual) Monocytes # (Manual) Eosinophils # (Manual) Basophils # (Manual) PT INR APTT Heparin Anti-Xa Level POC ABG pH POC ABG pCO2 33.8 L POC ABG pO2 131 H Sodium Potassium Chloride Carbon Dioxide BUN Creatinine Glucose POC Glucose 269 H 242 H Calcium Phosphorus Magnesium AST Alkaline Phosphatase Troponin T C-Reactive Protein Total Protein Albumin Triglycerides HDL Cholesterol Lipase Vitamin B12 TSH Urine WBC (Auto) Urine Chloride Urine Total Protein Vancomycin Trough Crossmatch 11/09/16 11/10/16 11/10/16 22:57 04:30 04:30 WBC 15.7 H RBC 3.17 L Hgb 9.7 L Hct 30.2 L MCV RDW 16.2 H Plt Count Lymph % (Auto) [place] % (Auto) [place] # Seg Neutrophils % Seg Neuts % (Manual) Lymphocytes % (Manual) Monocytes % (Manual) Basophils % (Manual) Nucleated RBC % Seg Neutrophils # Seg Neutrophils # Man 8.5 H Lymphocytes # (Manual) Monocytes # (Manual) Eosinophils # (Manual) 0.5 H Basophils # (Manual) PT INR APTT Heparin Anti-Xa Level POC ABG pH POC ABG pCO2 POC ABG pO2 Sodium Potassium Chloride Carbon Dioxide 19 L BUN Creatinine 0.6 L Glucose 199 H POC Glucose 239 H Calcium 7.8 L Phosphorus Magnesium AST Alkaline Phosphatase Troponin T C-Reactive Protein Total Protein Albumin Triglycerides HDL Cholesterol Lipase Vitamin B12 TSH Urine WBC (Auto) Urine Chloride Urine Total Protein Vancomycin Trough Crossmatch 11/10/16 11/10/16 11/10/16 04:30 11:32 16:00 WBC RBC Hgb Hct MCV RDW Plt Count Lymph % (Auto) [place] % (Auto) [place] # Seg Neutrophils % Seg Neuts % (Manual) Lymphocytes % (Manual) Monocytes % (Manual) Basophils % (Manual) Nucleated RBC % Seg Neutrophils # Seg Neutrophils # Man Lymphocytes # (Manual) Monocytes # (Manual) Eosinophils # (Manual) Basophils # (Manual) PT INR APTT Heparin Anti-Xa Level 1.09 H < 0.10 L POC ABG pH POC ABG pCO2 POC ABG pO2 Sodium Potassium Chloride Carbon Dioxide BUN Creatinine Glucose POC Glucose 211 H Calcium Phosphorus Magnesium AST Alkaline Phosphatase Troponin T C-Reactive Protein Total Protein Albumin Triglycerides HDL Cholesterol Lipase Vitamin B12 TSH Urine WBC (Auto) Urine Chloride Urine Total Protein Vancomycin Trough Crossmatch 11/10/16 11/10/16 11/10/16 17:39 18:00 23:06 WBC RBC Hgb Hct MCV RDW Plt Count Lymph % (Auto) [place] % (Auto) [place] # Seg Neutrophils % Seg Neuts % (Manual) Lymphocytes % (Manual) Monocytes % (Manual) Basophils % (Manual) Nucleated RBC % Seg Neutrophils # Seg Neutrophils # Man Lymphocytes # (Manual) Monocytes # (Manual) Eosinophils # (Manual) Basophils # (Manual) PT INR APTT Heparin Anti-Xa Level 0.85 H POC ABG pH POC ABG pCO2 POC ABG pO2 Sodium Potassium Chloride Carbon Dioxide BUN Creatinine Glucose POC Glucose 249 H 220 H Calcium Phosphorus Magnesium AST Alkaline Phosphatase Troponin T C-Reactive Protein Total Protein Albumin Triglycerides HDL Cholesterol Lipase Vitamin B12 TSH Urine WBC (Auto) Urine Chloride Urine Total Protein Vancomycin Trough Crossmatch 11/11/16 11/11/16 11/11/16 05:56 06:15 06:15 WBC 13.3 H RBC 2.87 L Hgb 8.7 L Hct 27.2 L MCV RDW 16.4 H Plt Count Lymph % (Auto) [place] % (Auto) [place] # 0.9 H Seg Neutrophils % 78.9 H Seg Neuts % (Manual) Lymphocytes % (Manual) Monocytes % (Manual) Basophils % (Manual) Nucleated RBC % Seg Neutrophils # 10.5 H Seg Neutrophils # Man Lymphocytes # (Manual) Monocytes # (Manual) Eosinophils # (Manual) Basophils # (Manual) PT INR APTT Heparin Anti-Xa Level POC ABG pH POC ABG pCO2 POC ABG pO2 Sodium Potassium 3.2 L Chloride Carbon Dioxide 19 L BUN Creatinine Glucose POC Glucose 117 H Calcium 7.6 L Phosphorus Magnesium AST Alkaline Phosphatase Troponin T C-Reactive Protein Total Protein Albumin Triglycerides HDL Cholesterol Lipase Vitamin B12 TSH Urine WBC (Auto) Urine Chloride Urine Total Protein Vancomycin Trough Crossmatch 11/11/16 11/11/16 11/11/16 12:26 16:58 17:33 WBC RBC Hgb Hct MCV RDW Plt Count Lymph % (Auto) [place] % (Auto) [place] # Seg Neutrophils % Seg Neuts % (Manual) Lymphocytes % (Manual) Monocytes % (Manual) Basophils % (Manual) Nucleated RBC % Seg Neutrophils # Seg Neutrophils # Man Lymphocytes # (Manual) Monocytes # (Manual) Eosinophils # (Manual) Basophils # (Manual) PT INR APTT Heparin Anti-Xa Level < 0.10 L POC ABG pH POC ABG pCO2 POC ABG pO2 Sodium Potassium Chloride Carbon Dioxide BUN Creatinine Glucose POC Glucose 114 H 161 H Calcium Phosphorus Magnesium AST Alkaline Phosphatase Troponin T C-Reactive Protein Total Protein Albumin Triglycerides HDL Cholesterol Lipase Vitamin B12 TSH Urine WBC (Auto) Urine Chloride Urine Total Protein Vancomycin Trough Crossmatch 11/12/16 11/12/16 11/12/16 05:00 05:00 05:00 WBC 12.8 H RBC 2.75 L Hgb 8.4 L Hct 25.7 L MCV RDW 16.3 H Plt Count Lymph % (Auto) [place] % (Auto) 7.5 H [place] # 1.0 H Seg Neutrophils % 78.0 H Seg Neuts % (Manual) Lymphocytes % (Manual) Monocytes % (Manual) Basophils % (Manual) Nucleated RBC % Seg Neutrophils # 10.0 H Seg Neutrophils # Man Lymphocytes # (Manual) Monocytes # (Manual) Eosinophils # (Manual) Basophils # (Manual) PT INR APTT Heparin Anti-Xa Level 0.87 H POC ABG pH POC ABG pCO2 POC ABG pO2 Sodium Potassium 3.4 L Chloride Carbon Dioxide 19 L BUN Creatinine Glucose 112 H POC Glucose Calcium 7.7 L Phosphorus Magnesium AST Alkaline Phosphatase Troponin T C-Reactive Protein Total Protein Albumin Triglycerides HDL Cholesterol Lipase Vitamin B12 TSH Urine WBC (Auto) Urine Chloride Urine Total Protein Vancomycin Trough Crossmatch 11/12/16 11/12/16 11/13/16 11:18 16:40 00:44 WBC RBC Hgb Hct MCV RDW Plt Count Lymph % (Auto) [place] % (Auto) [place] # Seg Neutrophils % Seg Neuts % (Manual) Lymphocytes % (Manual) Monocytes % (Manual) Basophils % (Manual) Nucleated RBC % Seg Neutrophils # Seg Neutrophils # Man Lymphocytes # (Manual) Monocytes # (Manual) Eosinophils # (Manual) Basophils # (Manual) PT INR APTT Heparin Anti-Xa Level POC ABG pH POC ABG pCO2 POC ABG pO2 Sodium Potassium Chloride Carbon Dioxide BUN Creatinine Glucose POC Glucose 135 H 139 H 169 H Calcium Phosphorus Magnesium AST Alkaline Phosphatase Troponin T C-Reactive Protein Total Protein Albumin Triglycerides HDL Cholesterol Lipase Vitamin B12 TSH Urine WBC (Auto) Urine Chloride Urine Total Protein Vancomycin Trough Crossmatch 11/13/16 11/13/16 11/13/16 05:28 05:28 06:02 WBC 12.7 H RBC 2.93 L Hgb 9.0 L Hct 27.6 L MCV RDW 16.1 H Plt Count Lymph % (Auto) [place] % (Auto) [place] # Seg Neutrophils % 78.6 H Seg Neuts % (Manual) Lymphocytes % (Manual) Monocytes % (Manual) Basophils % (Manual) Nucleated RBC % Seg Neutrophils # 10.0 H Seg Neutrophils # Man Lymphocytes # (Manual) Monocytes # (Manual) Eosinophils # (Manual) Basophils # (Manual) PT INR APTT Heparin Anti-Xa Level POC ABG pH POC ABG pCO2 POC ABG pO2 Sodium Potassium Chloride Carbon Dioxide 17 L BUN Creatinine Glucose 116 H POC Glucose 112 H Calcium 7.8 L Phosphorus Magnesium AST Alkaline Phosphatase Troponin T C-Reactive Protein Total Protein Albumin Triglycerides HDL Cholesterol Lipase Vitamin B12 TSH Urine WBC (Auto) Urine Chloride Urine Total Protein Vancomycin Trough Crossmatch 11/13/16 11/13/16 11/13/16 12:34 16:55 17:00 WBC RBC Hgb Hct MCV RDW Plt Count Lymph % (Auto) [place] % (Auto) [place] # Seg Neutrophils % Seg Neuts % (Manual) Lymphocytes % (Manual) Monocytes % (Manual) Basophils % (Manual) Nucleated RBC % Seg Neutrophils # Seg Neutrophils # Man Lymphocytes # (Manual) Monocytes # (Manual) Eosinophils # (Manual) Basophils # (Manual) PT INR APTT Heparin Anti-Xa Level POC ABG pH POC ABG pCO2 22.9 L POC ABG pO2 53 L Sodium Potassium Chloride Carbon Dioxide BUN Creatinine Glucose POC Glucose 109 H 122 H Calcium Phosphorus Magnesium AST Alkaline Phosphatase Troponin T C-Reactive Protein Total Protein Albumin Triglycerides HDL Cholesterol Lipase Vitamin B12 TSH Urine WBC (Auto) Urine Chloride Urine Total Protein Vancomycin Trough Crossmatch 11/13/16 11/14/16 11/14/16 23:33 04:42 04:42 WBC 11.7 H RBC 3.01 L Hgb 9.3 L Hct 28.9 L MCV RDW 16.5 H Plt Count Lymph % (Auto) [place] % (Auto) [place] # Seg Neutrophils % Seg Neuts % (Manual) 79.0 H Lymphocytes % (Manual) 10.0 L Monocytes % (Manual) Basophils % (Manual) Nucleated RBC % Seg Neutrophils # Seg Neutrophils # Man 9.2 H Lymphocytes # (Manual) Monocytes # (Manual) Eosinophils # (Manual) Basophils # (Manual) PT INR APTT Heparin Anti-Xa Level POC ABG pH POC ABG pCO2 POC ABG pO2 Sodium Potassium Chloride Carbon Dioxide 16 L BUN Creatinine Glucose 102 H POC Glucose 173 H Calcium 7.5 L Phosphorus Magnesium AST Alkaline Phosphatase Troponin T C-Reactive Protein Total Protein Albumin Triglycerides HDL Cholesterol Lipase Vitamin B12 TSH Urine WBC (Auto) Urine Chloride Urine Total Protein Vancomycin Trough Crossmatch 11/14/16 11/14/16 11/14/16 11:43 16:57 19:45 WBC RBC Hgb Hct MCV RDW Plt Count Lymph % (Auto) [place] % (Auto) [place] # Seg Neutrophils % Seg Neuts % (Manual) Lymphocytes % (Manual) Monocytes % (Manual) Basophils % (Manual) Nucleated RBC % Seg Neutrophils # Seg Neutrophils # Man Lymphocytes # (Manual) Monocytes # (Manual) Eosinophils # (Manual) Basophils # (Manual) PT INR APTT Heparin Anti-Xa Level 0.71 H POC ABG pH POC ABG pCO2 POC ABG pO2 Sodium Potassium Chloride Carbon Dioxide BUN Creatinine Glucose POC Glucose 130 H 209 H Calcium Phosphorus Magnesium AST Alkaline Phosphatase Troponin T C-Reactive Protein Total Protein Albumin Triglycerides HDL Cholesterol Lipase Vitamin B12 TSH Urine WBC (Auto) Urine Chloride Urine Total Protein Vancomycin Trough Crossmatch 11/14/16 11/15/16 11/16/16 23:43 23:47 06:11 WBC RBC Hgb Hct MCV RDW Plt Count Lymph % (Auto) [place] % (Auto) [place] # Seg Neutrophils % Seg Neuts % (Manual) Lymphocytes % (Manual) Monocytes % (Manual) Basophils % (Manual) Nucleated RBC % Seg Neutrophils # Seg Neutrophils # Man Lymphocytes # (Manual) Monocytes # (Manual) Eosinophils # (Manual) Basophils # (Manual) PT INR APTT Heparin Anti-Xa Level POC ABG pH POC ABG pCO2 POC ABG pO2 Sodium Potassium Chloride Carbon Dioxide BUN Creatinine Glucose POC Glucose 167 H 114 H 125 H Calcium Phosphorus Magnesium AST Alkaline Phosphatase Troponin T C-Reactive Protein Total Protein Albumin Triglycerides HDL Cholesterol Lipase Vitamin B12 TSH Urine WBC (Auto) Urine Chloride Urine Total Protein Vancomycin Trough Crossmatch 11/16/16 11/16/16 11/16/16 09:05 09:05 09:05 WBC RBC 2.53 L Hgb 8.0 L Hct 23.7 L MCV RDW 15.9 H Plt Count Lymph % (Auto) [place] % (Auto) [place] # Seg Neutrophils % Seg Neuts % (Manual) Lymphocytes % (Manual) Monocytes % (Manual) Basophils % (Manual) Nucleated RBC % Seg Neutrophils # Seg Neutrophils # Man Lymphocytes # (Manual) Monocytes # (Manual) Eosinophils # (Manual) Basophils # (Manual) PT INR APTT Heparin Anti-Xa Level POC ABG pH POC ABG pCO2 POC ABG pO2 Sodium Potassium 2.5 L* D Chloride Carbon Dioxide 19 L BUN 5 L Creatinine Glucose 103 H POC Glucose Calcium 6.6 L Phosphorus Magnesium 1.3 L AST Alkaline Phosphatase Troponin T C-Reactive Protein Total Protein Albumin Triglycerides HDL Cholesterol Lipase Vitamin B12 TSH Urine WBC (Auto) Urine Chloride Urine Total Protein Vancomycin Trough Crossmatch 11/16/16 11/16/16 11/16/16 12:15 13:00 14:45 WBC RBC Hgb Hct MCV RDW Plt Count Lymph % (Auto) [place] % (Auto) [place] # Seg Neutrophils % Seg Neuts % (Manual) Lymphocytes % (Manual) Monocytes % (Manual) Basophils % (Manual) Nucleated RBC % Seg Neutrophils # Seg Neutrophils # Man Lymphocytes # (Manual) Monocytes # (Manual) Eosinophils # (Manual) Basophils # (Manual) PT 19.1 H INR 1.61 H APTT Heparin Anti-Xa Level POC ABG pH 7.479 H POC ABG pCO2 23.6 L POC ABG pO2 Sodium Potassium Chloride Carbon Dioxide BUN Creatinine Glucose POC Glucose 129 H Calcium Phosphorus Magnesium AST Alkaline Phosphatase Troponin T C-Reactive Protein Total Protein Albumin Triglycerides HDL Cholesterol Lipase Vitamin B12 TSH Urine WBC (Auto) Urine Chloride Urine Total Protein Vancomycin Trough Crossmatch 11/16/16 11/17/16 11/17/16 17:43 00:30 04:32 WBC RBC Hgb Hct MCV RDW Plt Count Lymph % (Auto) [place] % (Auto) [place] # Seg Neutrophils % Seg Neuts % (Manual) Lymphocytes % (Manual) Monocytes % (Manual) Basophils % (Manual) Nucleated RBC % Seg Neutrophils # Seg Neutrophils # Man Lymphocytes # (Manual) Monocytes # (Manual) Eosinophils # (Manual) Basophils # (Manual) PT INR APTT Heparin Anti-Xa Level POC ABG pH POC ABG pCO2 POC ABG pO2 Sodium Potassium Chloride Carbon Dioxide 18 L BUN Creatinine Glucose 127 H POC Glucose 224 H 259 H Calcium 7.5 L Phosphorus Magnesium AST Alkaline Phosphatase Troponin T C-Reactive Protein Total Protein Albumin Triglycerides HDL Cholesterol Lipase Vitamin B12 TSH Urine WBC (Auto) Urine Chloride Urine Total Protein Vancomycin Trough Crossmatch 11/17/16 11/17/16 11/17/16 05:42 08:34 12:19 WBC RBC 2.85 L Hgb 8.9 L Hct 26.5 L MCV RDW 16.2 H Plt Count Lymph % (Auto) [place] % (Auto) [place] # Seg Neutrophils % Seg Neuts % (Manual) Lymphocytes % (Manual) Monocytes % (Manual) Basophils % (Manual) Nucleated RBC % Seg Neutrophils # Seg Neutrophils # Man Lymphocytes # (Manual) Monocytes # (Manual) Eosinophils # (Manual) Basophils # (Manual) PT INR APTT Heparin Anti-Xa Level POC ABG pH POC ABG pCO2 POC ABG pO2 Sodium Potassium Chloride Carbon Dioxide BUN Creatinine Glucose POC Glucose 118 H 264 H Calcium Phosphorus Magnesium AST Alkaline Phosphatase Troponin T C-Reactive Protein Total Protein Albumin Triglycerides HDL Cholesterol Lipase Vitamin B12 TSH Urine WBC (Auto) Urine Chloride Urine Total Protein Vancomycin Trough Crossmatch 11/17/16 11/17/16 11/18/16 16:52 23:44 04:53 WBC RBC Hgb Hct MCV RDW Plt Count Lymph % (Auto) [place] % (Auto) [place] # Seg Neutrophils % Seg Neuts % (Manual) Lymphocytes % (Manual) Monocytes % (Manual) Basophils % (Manual) Nucleated RBC % Seg Neutrophils # Seg Neutrophils # Man Lymphocytes # (Manual) Monocytes # (Manual) Eosinophils # (Manual) Basophils # (Manual) PT INR APTT Heparin Anti-Xa Level POC ABG pH POC ABG pCO2 POC ABG pO2 Sodium Potassium Chloride Carbon Dioxide BUN Creatinine Glucose POC Glucose 256 H 109 H 287 H Calcium Phosphorus Magnesium AST Alkaline Phosphatase Troponin T C-Reactive Protein Total Protein Albumin Triglycerides HDL Cholesterol Lipase Vitamin B12 TSH Urine WBC (Auto) Urine Chloride Urine Total Protein Vancomycin Trough Crossmatch 11/18/16 11/18/16 11/18/16 05:31 05:45 05:45 WBC RBC Hgb Hct MCV RDW Plt Count Lymph % (Auto) [place] % (Auto) [place] # Seg Neutrophils % Seg Neuts % (Manual) Lymphocytes % (Manual) Monocytes % (Manual) Basophils % (Manual) Nucleated RBC % Seg Neutrophils # Seg Neutrophils # Man Lymphocytes # (Manual) Monocytes # (Manual) Eosinophils # (Manual) Basophils # (Manual) PT 20.1 H INR 1.72 H APTT 131.1 H* Heparin Anti-Xa Level 0.18 L POC ABG pH 7.252 L POC ABG pCO2 32.0 L POC ABG pO2 Sodium Potassium Chloride 107.1 H Carbon Dioxide 17 L BUN Creatinine Glucose 284 H POC Glucose Calcium 7.2 L Phosphorus Magnesium AST Alkaline Phosphatase Troponin T C-Reactive Protein Total Protein 5.5 L Albumin 2.1 L Triglycerides HDL Cholesterol Lipase Vitamin B12 TSH Urine WBC (Auto) Urine Chloride Urine Total Protein Vancomycin Trough Crossmatch 11/18/16 11/18/16 11/18/16 05:45 09:17 12:06 WBC 13.3 H RBC 3.07 L Hgb 9.2 L Hct 29.5 L MCV RDW 16.9 H Plt Count Lymph % (Auto) 11.0 L [place] % (Auto) [place] # Seg Neutrophils % 82.9 H Seg Neuts % (Manual) Lymphocytes % (Manual) Monocytes % (Manual) Basophils % (Manual) Nucleated RBC % Seg Neutrophils # 11.0 H Seg Neutrophils # Man Lymphocytes # (Manual) Monocytes # (Manual) Eosinophils # (Manual) Basophils # (Manual) PT INR APTT Heparin Anti-Xa Level POC ABG pH POC ABG pCO2 24.3 L POC ABG pO2 79 L Sodium Potassium Chloride Carbon Dioxide BUN Creatinine Glucose POC Glucose 433 H Calcium Phosphorus Magnesium AST Alkaline Phosphatase Troponin T C-Reactive Protein Total Protein Albumin Triglycerides HDL Cholesterol Lipase Vitamin B12 TSH Urine WBC (Auto) Urine Chloride Urine Total Protein Vancomycin Trough Crossmatch 11/18/16 11/18/16 11/18/16 12:09 13:00 17:22 WBC 12.6 H RBC 2.79 L Hgb 8.6 L Hct 26.6 L MCV RDW 17.0 H Plt Count Lymph % (Auto) [place] % (Auto) [place] # Seg Neutrophils % Seg Neuts % (Manual) 90.0 H Lymphocytes % (Manual) 8.0 L Monocytes % (Manual) Basophils % (Manual) Nucleated RBC % Seg Neutrophils # Seg Neutrophils # Man 11.3 H Lymphocytes # (Manual) 1.0 L Monocytes # (Manual) Eosinophils # (Manual) Basophils # (Manual) PT INR APTT Heparin Anti-Xa Level POC ABG pH POC ABG pCO2 POC ABG pO2 Sodium Potassium Chloride Carbon Dioxide BUN Creatinine Glucose POC Glucose 429 H 297 H Calcium Phosphorus Magnesium AST Alkaline Phosphatase Troponin T C-Reactive Protein Total Protein Albumin Triglycerides HDL Cholesterol Lipase Vitamin B12 TSH Urine WBC (Auto) Urine Chloride Urine Total Protein Vancomycin Trough Crossmatch 11/18/16 11/19/16 11/19/16 23:27 04:30 04:30 WBC RBC 2.92 L Hgb 8.8 L Hct 27.0 L MCV RDW 16.6 H Plt Count Lymph % (Auto) [place] % (Auto) [place] # Seg Neutrophils % Seg Neuts % (Manual) Lymphocytes % (Manual) Monocytes % (Manual) Basophils % (Manual) Nucleated RBC % Seg Neutrophils # Seg Neutrophils # Man Lymphocytes # (Manual) Monocytes # (Manual) Eosinophils # (Manual) Basophils # (Manual) PT INR APTT Heparin Anti-Xa Level POC ABG pH POC ABG pCO2 POC ABG pO2 Sodium Potassium 3.0 L Chloride 107.9 H Carbon Dioxide 20 L BUN Creatinine Glucose 231 H POC Glucose 268 H Calcium 7.1 L Phosphorus Magnesium AST Alkaline Phosphatase Troponin T C-Reactive Protein Total Protein 5.5 L Albumin 2.1 L Triglycerides HDL Cholesterol Lipase Vitamin B12 TSH Urine WBC (Auto) Urine Chloride Urine Total Protein Vancomycin Trough Crossmatch 11/19/16 11/19/16 11/19/16 04:40 06:40 10:00 WBC RBC Hgb Hct MCV RDW Plt Count Lymph % (Auto) [place] % (Auto) [place] # Seg Neutrophils % Seg Neuts % (Manual) Lymphocytes % (Manual) Monocytes % (Manual) Basophils % (Manual) Nucleated RBC % Seg Neutrophils # Seg Neutrophils # Man Lymphocytes # (Manual) Monocytes # (Manual) Eosinophils # (Manual) Basophils # (Manual) PT INR APTT Heparin Anti-Xa Level POC ABG pH POC ABG pCO2 POC ABG pO2 Sodium Potassium Chloride Carbon Dioxide BUN Creatinine Glucose POC Glucose 267 H 244 H Calcium Phosphorus Magnesium 1.4 L AST Alkaline Phosphatase Troponin T C-Reactive Protein Total Protein Albumin Triglycerides HDL Cholesterol Lipase Vitamin B12 TSH Urine WBC (Auto) Urine Chloride Urine Total Protein Vancomycin Trough Crossmatch 11/19/16 11/19/16 11/19/16 12:08 18:10 23:40 WBC RBC Hgb Hct MCV RDW Plt Count Lymph % (Auto) [place] % (Auto) [place] # Seg Neutrophils % Seg Neuts % (Manual) Lymphocytes % (Manual) Monocytes % (Manual) Basophils % (Manual) Nucleated RBC % Seg Neutrophils # Seg Neutrophils # Man Lymphocytes # (Manual) Monocytes # (Manual) Eosinophils # (Manual) Basophils # (Manual) PT INR APTT Heparin Anti-Xa Level POC ABG pH POC ABG pCO2 POC ABG pO2 Sodium Potassium Chloride Carbon Dioxide BUN Creatinine Glucose POC Glucose 254 H 265 H 197 H Calcium Phosphorus Magnesium AST Alkaline Phosphatase Troponin T C-Reactive Protein Total Protein Albumin Triglycerides HDL Cholesterol Lipase Vitamin B12 TSH Urine WBC (Auto) Urine Chloride Urine Total Protein Vancomycin Trough Crossmatch 11/20/16 11/20/16 11/20/16 05:00 05:44 11:33 WBC RBC Hgb Hct MCV RDW Plt Count Lymph % (Auto) [place] % (Auto) [place] # Seg Neutrophils % Seg Neuts % (Manual) Lymphocytes % (Manual) Monocytes % (Manual) Basophils % (Manual) Nucleated RBC % Seg Neutrophils # Seg Neutrophils # Man Lymphocytes # (Manual) Monocytes # (Manual) Eosinophils # (Manual) Basophils # (Manual) PT INR APTT Heparin Anti-Xa Level POC ABG pH POC ABG pCO2 POC ABG pO2 Sodium Potassium 3.4 L Chloride 107.4 H Carbon Dioxide 20 L BUN Creatinine Glucose 140 H POC Glucose 163 H 108 H Calcium 7.2 L Phosphorus Magnesium AST Alkaline Phosphatase Troponin T C-Reactive Protein Total Protein Albumin Triglycerides HDL Cholesterol Lipase Vitamin B12 TSH Urine WBC (Auto) Urine Chloride Urine Total Protein Vancomycin Trough Crossmatch 11/20/16 11/20/16 11/20/16 13:03 16:45 23:26 WBC RBC Hgb Hct MCV RDW Plt Count Lymph % (Auto) [place] % (Auto) [place] # Seg Neutrophils % Seg Neuts % (Manual) Lymphocytes % (Manual) Monocytes % (Manual) Basophils % (Manual) Nucleated RBC % Seg Neutrophils # Seg Neutrophils # Man Lymphocytes # (Manual) Monocytes # (Manual) Eosinophils # (Manual) Basophils # (Manual) PT INR APTT Heparin Anti-Xa Level POC ABG pH POC ABG pCO2 POC ABG pO2 Sodium Potassium Chloride Carbon Dioxide BUN Creatinine Glucose POC Glucose 113 H 168 H Calcium Phosphorus Magnesium AST Alkaline Phosphatase Troponin T C-Reactive Protein Total Protein Albumin Triglycerides HDL Cholesterol Lipase Vitamin B12 TSH Urine WBC (Auto) Urine Chloride Urine Total Protein Vancomycin Trough 45.8 H Crossmatch 11/21/16 11/21/16 11/21/16 05:00 05:27 09:50 WBC RBC Hgb Hct MCV RDW Plt Count Lymph % (Auto) [place] % (Auto) [place] # Seg Neutrophils % Seg Neuts % (Manual) Lymphocytes % (Manual) Monocytes % (Manual) Basophils % (Manual) Nucleated RBC % Seg Neutrophils # Seg Neutrophils # Man Lymphocytes # (Manual) Monocytes # (Manual) Eosinophils # (Manual) Basophils # (Manual) PT INR APTT Heparin Anti-Xa Level POC ABG pH POC ABG pCO2 POC ABG pO2 Sodium 133 L D Potassium Chloride Carbon Dioxide 19 L BUN Creatinine Glucose 280 H POC Glucose 222 H Calcium 7.4 L Phosphorus Magnesium AST Alkaline Phosphatase Troponin T C-Reactive Protein Total Protein Albumin Triglycerides HDL Cholesterol Lipase Vitamin B12 TSH Urine WBC (Auto) Urine Chloride Urine Total Protein Vancomycin Trough 30.4 H Crossmatch 11/21/16 11/21/16 11/21/16 12:36 17:17 18:34 WBC RBC Hgb Hct MCV RDW Plt Count Lymph % (Auto) [place] % (Auto) [place] # Seg Neutrophils % Seg Neuts % (Manual) Lymphocytes % (Manual) Monocytes % (Manual) Basophils % (Manual) Nucleated RBC % Seg Neutrophils # Seg Neutrophils # Man Lymphocytes # (Manual) Monocytes # (Manual) Eosinophils # (Manual) Basophils # (Manual) PT INR APTT Heparin Anti-Xa Level POC ABG pH POC ABG pCO2 POC ABG pO2 Sodium Potassium Chloride Carbon Dioxide BUN Creatinine Glucose POC Glucose 306 H 339 H 318 H Calcium Phosphorus Magnesium AST Alkaline Phosphatase Troponin T C-Reactive Protein Total Protein Albumin Triglycerides HDL Cholesterol Lipase Vitamin B12 TSH Urine WBC (Auto) Urine Chloride Urine Total Protein Vancomycin Trough Crossmatch 11/21/16 11/22/16 11/22/16 23:16 07:19 11:49 WBC 11.1 H RBC 2.60 L Hgb 7.8 L Hct 24.4 L MCV RDW 16.3 H Plt Count Lymph % (Auto) [place] % (Auto) [place] # Seg Neutrophils % 76.8 H Seg Neuts % (Manual) Lymphocytes % (Manual) Monocytes % (Manual) Basophils % (Manual) Nucleated RBC % Seg Neutrophils # 8.5 H Seg Neutrophils # Man Lymphocytes # (Manual) Monocytes # (Manual) Eosinophils # (Manual) Basophils # (Manual) PT INR APTT Heparin Anti-Xa Level POC ABG pH POC ABG pCO2 POC ABG pO2 Sodium Potassium Chloride Carbon Dioxide BUN Creatinine Glucose POC Glucose 286 H 371 H Calcium Phosphorus Magnesium AST Alkaline Phosphatase Troponin T C-Reactive Protein Total Protein Albumin Triglycerides HDL Cholesterol Lipase Vitamin B12 TSH Urine WBC (Auto) Urine Chloride Urine Total Protein Vancomycin Trough Crossmatch 11/22/16 11/22/16 11/22/16 11:50 11:50 17:34 WBC RBC Hgb Hct MCV RDW Plt Count Lymph % (Auto) [place] % (Auto) [place] # Seg Neutrophils % Seg Neuts % (Manual) Lymphocytes % (Manual) Monocytes % (Manual) Basophils % (Manual) Nucleated RBC % Seg Neutrophils # Seg Neutrophils # Man Lymphocytes # (Manual) Monocytes # (Manual) Eosinophils # (Manual) Basophils # (Manual) PT INR APTT Heparin Anti-Xa Level POC ABG pH POC ABG pCO2 POC ABG pO2 Sodium 130 L Potassium Chloride Carbon Dioxide 19 L BUN 20 H Creatinine Glucose 266 H POC Glucose 262 H 284 H Calcium 7.2 L Phosphorus Magnesium AST Alkaline Phosphatase Troponin T C-Reactive Protein Total Protein Albumin Triglycerides HDL Cholesterol Lipase Vitamin B12 TSH Urine WBC (Auto) Urine Chloride Urine Total Protein Vancomycin Trough Crossmatch 11/22/16 11/22/16 11/22/16 17:43 20:04 23:38 WBC RBC Hgb Hct MCV RDW Plt Count Lymph % (Auto) [place] % (Auto) [place] # Seg Neutrophils % Seg Neuts % (Manual) Lymphocytes % (Manual) Monocytes % (Manual) Basophils % (Manual) Nucleated RBC % Seg Neutrophils # Seg Neutrophils # Man Lymphocytes # (Manual) Monocytes # (Manual) Eosinophils # (Manual) Basophils # (Manual) PT INR APTT Heparin Anti-Xa Level POC ABG pH 7.492 H POC ABG pCO2 23.2 L POC ABG pO2 60 L Sodium Potassium Chloride Carbon Dioxide BUN Creatinine Glucose POC Glucose 261 H 253 H Calcium Phosphorus Magnesium AST Alkaline Phosphatase Troponin T C-Reactive Protein Total Protein Albumin Triglycerides HDL Cholesterol Lipase Vitamin B12 TSH Urine WBC (Auto) Urine Chloride Urine Total Protein Vancomycin Trough Crossmatch 11/23/16 11/23/16 11/23/16 06:27 08:20 11:54 WBC RBC Hgb 8.2 L Hct 24.9 L MCV RDW Plt Count Lymph % (Auto) [place] % (Auto) [place] # Seg Neutrophils % Seg Neuts % (Manual) Lymphocytes % (Manual) Monocytes % (Manual) Basophils % (Manual) Nucleated RBC % Seg Neutrophils # Seg Neutrophils # Man Lymphocytes # (Manual) Monocytes # (Manual) Eosinophils # (Manual) Basophils # (Manual) PT INR APTT Heparin Anti-Xa Level POC ABG pH POC ABG pCO2 POC ABG pO2 Sodium Potassium Chloride Carbon Dioxide BUN Creatinine Glucose POC Glucose 333 H 286 H Calcium Phosphorus Magnesium AST Alkaline Phosphatase Troponin T C-Reactive Protein Total Protein Albumin Triglycerides HDL Cholesterol Lipase Vitamin B12 TSH Urine WBC (Auto) Urine Chloride Urine Total Protein Vancomycin Trough Crossmatch 11/23/16 11/23/16 11/24/16 17:53 23:51 00:12 WBC RBC Hgb Hct MCV RDW Plt Count Lymph % (Auto) [place] % (Auto) [place] # Seg Neutrophils % Seg Neuts % (Manual) Lymphocytes % (Manual) Monocytes % (Manual) Basophils % (Manual) Nucleated RBC % Seg Neutrophils # Seg Neutrophils # Man Lymphocytes # (Manual) Monocytes # (Manual) Eosinophils # (Manual) Basophils # (Manual) PT INR APTT Heparin Anti-Xa Level POC ABG pH POC ABG pCO2 POC ABG pO2 Sodium Potassium Chloride Carbon Dioxide BUN Creatinine Glucose POC Glucose 195 H 214 H 223 H Calcium Phosphorus Magnesium AST Alkaline Phosphatase Troponin T C-Reactive Protein Total Protein Albumin Triglycerides HDL Cholesterol Lipase Vitamin B12 TSH Urine WBC (Auto) Urine Chloride Urine Total Protein Vancomycin Trough Crossmatch 11/24/16 11/24/16 11/24/16 04:50 04:50 06:08 WBC RBC 2.74 L Hgb 8.4 L Hct 26.1 L MCV RDW 16.0 H Plt Count Lymph % (Auto) [place] % (Auto) [place] # Seg Neutrophils % Seg Neuts % (Manual) Lymphocytes % (Manual) Monocytes % (Manual) Basophils % (Manual) Nucleated RBC % Seg Neutrophils # Seg Neutrophils # Man Lymphocytes # (Manual) Monocytes # (Manual) Eosinophils # (Manual) Basophils # (Manual) PT INR APTT Heparin Anti-Xa Level POC ABG pH POC ABG pCO2 POC ABG pO2 Sodium 133 L Potassium Chloride Carbon Dioxide 19 L BUN 23 H Creatinine Glucose 200 H POC Glucose 187 H Calcium 7.2 L Phosphorus Magnesium AST Alkaline Phosphatase Troponin T C-Reactive Protein Total Protein Albumin Triglycerides HDL Cholesterol Lipase Vitamin B12 TSH Urine WBC (Auto) Urine Chloride Urine Total Protein Vancomycin Trough Crossmatch 11/24/16 11/24/16 11/24/16 12:02 17:43 23:35 WBC RBC Hgb Hct MCV RDW Plt Count Lymph % (Auto) [place] % (Auto) [place] # Seg Neutrophils % Seg Neuts % (Manual) Lymphocytes % (Manual) Monocytes % (Manual) Basophils % (Manual) Nucleated RBC % Seg Neutrophils # Seg Neutrophils # Man Lymphocytes # (Manual) Monocytes # (Manual) Eosinophils # (Manual) Basophils # (Manual) PT INR APTT Heparin Anti-Xa Level POC ABG pH POC ABG pCO2 POC ABG pO2 Sodium Potassium Chloride Carbon Dioxide BUN Creatinine Glucose POC Glucose 250 H 226 H 230 H Calcium Phosphorus Magnesium AST Alkaline Phosphatase Troponin T C-Reactive Protein Total Protein Albumin Triglycerides HDL Cholesterol Lipase Vitamin B12 TSH Urine WBC (Auto) Urine Chloride Urine Total Protein Vancomycin Trough Crossmatch 11/25/16 11/25/16 11/25/16 05:47 11:37 18:00 WBC RBC Hgb Hct MCV RDW Plt Count Lymph % (Auto) [place] % (Auto) [place] # Seg Neutrophils % Seg Neuts % (Manual) Lymphocytes % (Manual) Monocytes % (Manual) Basophils % (Manual) Nucleated RBC % Seg Neutrophils # Seg Neutrophils # Man Lymphocytes # (Manual) Monocytes # (Manual) Eosinophils # (Manual) Basophils # (Manual) PT INR APTT Heparin Anti-Xa Level POC ABG pH POC ABG pCO2 POC ABG pO2 Sodium Potassium Chloride Carbon Dioxide BUN Creatinine Glucose POC Glucose 229 H 226 H 226 H Calcium Phosphorus Magnesium AST Alkaline Phosphatase Troponin T C-Reactive Protein Total Protein Albumin Triglycerides HDL Cholesterol Lipase Vitamin B12 TSH Urine WBC (Auto) Urine Chloride Urine Total Protein Vancomycin Trough Crossmatch 11/26/16 11/26/16 11/26/16 05:43 12:05 17:05 WBC RBC Hgb Hct MCV RDW Plt Count Lymph % (Auto) [place] % (Auto) [place] # Seg Neutrophils % Seg Neuts % (Manual) Lymphocytes % (Manual) Monocytes % (Manual) Basophils % (Manual) Nucleated RBC % Seg Neutrophils # Seg Neutrophils # Man Lymphocytes # (Manual) Monocytes # (Manual) Eosinophils # (Manual) Basophils # (Manual) PT INR APTT Heparin Anti-Xa Level POC ABG pH POC ABG pCO2 POC ABG pO2 Sodium Potassium Chloride Carbon Dioxide BUN Creatinine Glucose POC Glucose 262 H 260 H 193 H Calcium Phosphorus Magnesium AST Alkaline Phosphatase Troponin T C-Reactive Protein Total Protein Albumin Triglycerides HDL Cholesterol Lipase Vitamin B12 TSH Urine WBC (Auto) Urine Chloride Urine Total Protein Vancomycin Trough Crossmatch 11/26/16 11/27/16 11/27/16 23:46 05:49 12:36 WBC RBC Hgb Hct MCV RDW Plt Count Lymph % (Auto) [place] % (Auto) [place] # Seg Neutrophils % Seg Neuts % (Manual) Lymphocytes % (Manual) Monocytes % (Manual) Basophils % (Manual) Nucleated RBC % Seg Neutrophils # Seg Neutrophils # Man Lymphocytes # (Manual) Monocytes # (Manual) Eosinophils # (Manual) Basophils # (Manual) PT INR APTT Heparin Anti-Xa Level POC ABG pH POC ABG pCO2 POC ABG pO2 Sodium Potassium Chloride Carbon Dioxide BUN Creatinine Glucose POC Glucose 183 H 182 H 250 H Calcium Phosphorus Magnesium AST Alkaline Phosphatase Troponin T C-Reactive Protein Total Protein Albumin Triglycerides HDL Cholesterol Lipase Vitamin B12 TSH Urine WBC (Auto) Urine Chloride Urine Total Protein Vancomycin Trough Crossmatch 11/27/16 11/27/16 11/27/16 17:02 17:45 22:42 WBC RBC Hgb Hct MCV RDW Plt Count Lymph % (Auto) [place] % (Auto) [place] # Seg Neutrophils % Seg Neuts % (Manual) Lymphocytes % (Manual) Monocytes % (Manual) Basophils % (Manual) Nucleated RBC % Seg Neutrophils # Seg Neutrophils # Man Lymphocytes # (Manual) Monocytes # (Manual) Eosinophils # (Manual) Basophils # (Manual) PT INR APTT Heparin Anti-Xa Level POC ABG pH 7.331 L POC ABG pCO2 POC ABG pO2 46 L Sodium Potassium Chloride Carbon Dioxide BUN Creatinine Glucose POC Glucose 275 H Calcium Phosphorus Magnesium AST Alkaline Phosphatase Troponin T 0.093 H C-Reactive Protein Total Protein Albumin Triglycerides HDL Cholesterol Lipase Vitamin B12 TSH Urine WBC (Auto) Urine Chloride Urine Total Protein Vancomycin Trough Crossmatch 11/27/16 11/28/16 11/28/16 23:28 05:46 05:46 WBC RBC 2.88 L Hgb 8.9 L Hct 27.7 L MCV RDW 17.2 H Plt Count Lymph % (Auto) [place] % (Auto) [place] # Seg Neutrophils % Seg Neuts % (Manual) Lymphocytes % (Manual) Monocytes % (Manual) Basophils % (Manual) Nucleated RBC % Seg Neutrophils # Seg Neutrophils # Man Lymphocytes # (Manual) Monocytes # (Manual) Eosinophils # (Manual) Basophils # (Manual) PT 15.1 H INR 1.20 H APTT Heparin Anti-Xa Level POC ABG pH POC ABG pCO2 POC ABG pO2 Sodium Potassium Chloride Carbon Dioxide BUN Creatinine Glucose POC Glucose 237 H Calcium Phosphorus Magnesium AST Alkaline Phosphatase Troponin T C-Reactive Protein Total Protein Albumin Triglycerides HDL Cholesterol Lipase Vitamin B12 TSH Urine WBC (Auto) Urine Chloride Urine Total Protein Vancomycin Trough Crossmatch 11/28/16 11/28/16 11/28/16 05:46 05:46 05:56 WBC RBC Hgb Hct MCV RDW Plt Count Lymph % (Auto) [place] % (Auto) [place] # Seg Neutrophils % Seg Neuts % (Manual) Lymphocytes % (Manual) Monocytes % (Manual) Basophils % (Manual) Nucleated RBC % Seg Neutrophils # Seg Neutrophils # Man Lymphocytes # (Manual) Monocytes # (Manual) Eosinophils # (Manual) Basophils # (Manual) PT INR APTT Heparin Anti-Xa Level POC ABG pH POC ABG pCO2 POC ABG pO2 Sodium Potassium Chloride Carbon Dioxide 21 L BUN 27 H Creatinine Glucose 237 H POC Glucose 275 H Calcium 8.1 L Phosphorus Magnesium AST Alkaline Phosphatase Troponin T 0.090 H C-Reactive Protein Total Protein Albumin Triglycerides 154 H HDL Cholesterol 38 L Lipase Vitamin B12 TSH Urine WBC (Auto) Urine Chloride Urine Total Protein Vancomycin Trough Crossmatch 11/28/16 11/28/16 11/28/16 11:20 18:16 23:30 WBC RBC Hgb Hct MCV RDW Plt Count Lymph % (Auto) [place] % (Auto) [place] # Seg Neutrophils % Seg Neuts % (Manual) Lymphocytes % (Manual) Monocytes % (Manual) Basophils % (Manual) Nucleated RBC % Seg Neutrophils # Seg Neutrophils # Man Lymphocytes # (Manual) Monocytes # (Manual) Eosinophils # (Manual) Basophils # (Manual) PT INR APTT Heparin Anti-Xa Level POC ABG pH POC ABG pCO2 POC ABG pO2 Sodium Potassium Chloride Carbon Dioxide BUN Creatinine Glucose POC Glucose 277 H 222 H 143 H Calcium Phosphorus Magnesium AST Alkaline Phosphatase Troponin T C-Reactive Protein Total Protein Albumin Triglycerides HDL Cholesterol Lipase Vitamin B12 TSH Urine WBC (Auto) Urine Chloride Urine Total Protein Vancomycin Trough Crossmatch 11/29/16 11/29/16 11/29/16 04:46 05:42 12:10 WBC RBC Hgb Hct MCV RDW Plt Count Lymph % (Auto) [place] % (Auto) [place] # Seg Neutrophils % Seg Neuts % (Manual) Lymphocytes % (Manual) Monocytes % (Manual) Basophils % (Manual) Nucleated RBC % Seg Neutrophils # Seg Neutrophils # Man Lymphocytes # (Manual) Monocytes # (Manual) Eosinophils # (Manual) Basophils # (Manual) PT 16.7 H INR 1.36 H APTT Heparin Anti-Xa Level POC ABG pH POC ABG pCO2 POC ABG pO2 Sodium Potassium Chloride Carbon Dioxide BUN Creatinine Glucose POC Glucose 165 H 232 H Calcium Phosphorus Magnesium AST Alkaline Phosphatase Troponin T C-Reactive Protein Total Protein Albumin Triglycerides HDL Cholesterol Lipase Vitamin B12 TSH Urine WBC (Auto) Urine Chloride Urine Total Protein Vancomycin Trough Crossmatch Chest x-ray: report reviewed Allied health notes reviewed: RT
[2016-11-29] MEDS: COUMADIN PO SCH (17:50)
[2016-11-29] MEDS: TYLENOL PO PRN (20:29)
[2016-11-30] MEDS: TYLENOL PO PRN (05:31)
[2016-11-30] MEDS: DILANTIN IV SCH ×3 (05:33→21:09)
[2016-11-30 05:36] LABS: INR 1.47 (0.87-1.13)
[2016-11-30] MEDS: LOPRESSOR PO SCH ×3 (09:50→21:08)
[2016-11-30] MEDS: ZESTRIL PO SCH (09:50)
[2016-11-30] MEDS: PLAVIX PO SCH (09:51)
[2016-11-30] MEDS: LEVEMIR SUB-Q SCH (09:51)
[2016-11-30] MEDS: PEPCID PO SCH ×2 (09:51→21:09)
[2016-11-30] MEDS: LOVENOX SUB-Q SCH ×2 (09:52→21:09)
--- NOTE | 2016-11-30 13:19 | Progress Note ---
Assessment and Plan Assessment and plan: Patient is a 66-year-old woman who presented with lethargy and altered mental status with possible anoxic injury unknown duration of how long she was down for she deteriorated and was intubated in emergency room, she was managed for DKA and she also developed sepsis due to UTI and right lower extremity ischemia- > Cold right foot which I discovered on Rounds on 10/17/16 and I asked the nurse for the bedside doppler which showed no pulse, My exam on the morning of morning has changed, she had a pulse right foot. Arterial duplex revealed a proximal right superficial femoral artery occlusion. I consulted and discussed with Vascular surgery, Dr. Eller ==>Acute ischemic right foot. 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 Remained very difficult to wean from the vent. Although eventually was tolerating pressure support. She subsequently went into cardiac arrest was resuscitated but this time was not able to recover back to following commands as previous before second cardiac arrest. Heparin was discontinued due to CPR. Vascular did not feel at this time that for reactivation of the right lower extremity was needed. Imaging studies were consented for anoxic encephalopathy and cortical irritability although no diagnosis of brain was noted. Dr. Mcclure discussed with family extensively and has informed them about real possibility of not having any meaningful neurological recovery. They agreed with transfer to a skilled facility with vent Ability. Case management is working and is meantime we'll continue current therapy and management. -S/P cardiopulomary arrest x 2 -A/C respiratory failure with hypercapnea -Seizure-Per family prior hx -DM, s/p DKA -Hyponatremia -Acute limb ischemia of right lower ext due to SFA thrombosis- s/p right BKA -LUCY/CKD 3 likely vasomotor nephropathy-resolved -Sepsis, Strept Group B tracheobronchitis, poa- Multifactorial -Anemia of chronic disease -Hematuria -Metabolic acidosis -Severe Hypokalemia-RESOLVED -Pancreatitis, acute, poa -Vaginal candidiasis -Hypernatremia -MSOF, poa Plan: * s/p EEG - findings consistent with anoxic encephalopathy and cortical irritability * Neurology notes intact brain stem * PSV as tolerated * Family updated about the very real possibility of not having any meaningful neurological recovery. all questions answered. Family meeting with daughter, and grandchild with greatgrand child in attendance. Case mangement and social media specialist and bedside nurse were also present. * Poor prognosis. * Plan for transfer to custodial acute care facility pending * MRI brain with no gross abnormality * adjust insulin therapy * Neurologic input noted. EEG abnormal. * Heparin had to be held due to the risk associated considering recent CPR with chest compressions. * vascular following up on right BKA remains poor prognosis and likely will need a conversion to AKA. * Continue subcutaneous insulin and electrolyte replacement * Continue Cardizem and beta juan antonio * Monitor electrolytes and hemoglobin. * continue dilantin * DVT and GI prophylaxis New issue: ACUTE DVT IN THE RT.AXILLARY VEIN EXTENDING TO THE RT.BRACHIAL VEIN.RN INFORMED. Treat with therapeutic anticoagulation new issue: lungs more congested. Disposition: Placement? snf with vent capabilities vs ltach Poor prognosis History Interval history: Patient seen and examined. Follow up on respiratory failure, still intubated. Overnight uneventful. Imaging, old records, testing, labs, nursing notes reviewed. Hospitalist Physical - Physical exam Narrative exam: GEN: Intubated CVS: RRR, NORMAL S1S2 LUNGS/CHEST: Tachypnea NORMAL CHEST EXPANSION B, GOOD AIR ENTRY B ABD: SOFT +peg, GBS, NO REBOUND OR GUARDING NEURO: CN 2-12 GROSSLY INTACT, doesn't follow commands, eyes wondering PSY: Anxious New issue: right bka, tracheostomy and peg present - Constitutional Vitals: Temp Pulse Resp BP Pulse Ox 98.9 F 79 15 149/65 100 11/30/16 12:00 11/30/16 11:55 11/30/16 10:30 11/30/16 11:55 11/30/16 11:55 General appearance: Present: no acute distress Results - Labs CBC & Chem 7: 11/28/16 05:46 11/28/16 05:46 Labs: Laboratory Last Values WBC 10.5 K/mm3 (4.5-11.0) 11/28/16 05:46 RBC 2.88 M/mm3 (3.65-5.03) L 11/28/16 05:46 Hgb 8.9 gm/dl (10.1-14.3) L 11/28/16 05:46 Hct 27.7 % (30.3-42.9) L 11/28/16 05:46 MCV 96 fl (79-97) 11/28/16 05:46 MCH 31 pg (28-32) 11/28/16 05:46 MCHC 32 % (30-34) 11/28/16 05:46 RDW 17.2 % (13.2-15.2) H 11/28/16 05:46 Plt Count 391 K/mm3 (140-440) 11/28/16 05:46 Lymph % (Auto) 14.8 % (13.4-35.0) 11/22/16 11:49 Parke % (Auto) 6.7 % (0.0-7.3) 11/22/16 11:49 Eos % (Auto) 1.1 % (0.0-4.3) 11/22/16 11:49 Baso % (Auto) 0.6 % (0.0-1.8) 11/22/16 11:49 Lymph # 1.6 K/mm3 (1.2-5.4) 11/22/16 11:49 Parke # 0.7 K/mm3 (0.0-0.8) 11/22/16 11:49 Eos # 0.1 K/mm3 (0.0-0.4) 11/22/16 11:49 Baso # 0.1 K/mm3 (0.0-0.1) 11/22/16 11:49 Add Manual Diff Complete 11/18/16 13:00 Total Counted 100 11/18/16 13:00 Seg Neutrophils % 76.8 % (40.0-70.0) H 11/22/16 11:49 Seg Neuts % (Manual) 90.0 % (40.0-70.0) H 11/18/16 13:00 Band Neutrophils % 0 % 11/18/16 13:00 Lymphocytes % (Manual) 8.0 % (13.4-35.0) L 11/18/16 13:00 Reactive Lymphs % (Man) 0 % 11/18/16 13:00 Monocytes % (Manual) 2.0 % (0.0-7.3) 11/18/16 13:00 Eosinophils % (Manual) 0 % (0.0-4.3) 11/18/16 13:00 Basophils % (Manual) 0 % (0.0-1.8) 11/18/16 13:00 Metamyelocytes % 0 % 11/18/16 13:00 Myelocytes % 0 % 11/18/16 13:00 Promyelocytes % 0 % 11/18/16 13:00 Blast Cells % 0 % 11/18/16 13:00 Nucleated RBC % Not Reportable 11/18/16 13:00 Seg Neutrophils # 8.5 K/mm3 (1.8-7.7) H 11/22/16 11:49 Seg Neutrophils # Man 11.3 K/mm3 (1.8-7.7) H 11/18/16 13:00 Band Neutrophils # 0.0 K/mm3 11/18/16 13:00 Lymphocytes # (Manual) 1.0 K/mm3 (1.2-5.4) L 11/18/16 13:00 Abs React Lymphs (Man) 0.0 K/mm3 11/18/16 13:00 Monocytes # (Manual) 0.3 K/mm3 (0.0-0.8) 11/18/16 13:00 Eosinophils # (Manual) 0.0 K/mm3 (0.0-0.4) 11/18/16 13:00 Basophils # (Manual) 0.0 K/mm3 (0.0-0.1) 11/18/16 13:00 Metamyelocytes # 0.0 K/mm3 11/18/16 13:00 Myelocytes # 0.0 K/mm3 11/18/16 13:00 Promyelocytes # 0.0 K/mm3 11/18/16 13:00 Blast Cells # 0.0 K/mm3 11/18/16 13:00 Pathologist Review 10/29/16 09:30 WBC Morphology Not Reportable 11/18/16 13:00 Hypersegmented Neuts Not Reportable 11/18/16 13:00 Hyposegmented Neuts Not Reportable 11/18/16 13:00 Hypogranular Neuts Not Reportable 11/18/16 13:00 Hypersegmented Polys TNR 10/17/16 07:08 Smudge Cells Not Reportable 11/18/16 13:00 Toxic Granulation Not Reportable 11/18/16 13:00 Toxic Vacuolation Not Reportable 11/18/16 13:00 Dohle Bodies Not Reportable 11/18/16 13:00 Pelger-Huet Anomaly Not Reportable 11/18/16 13:00 Alka Rods Not Reportable 11/18/16 13:00 Platelet Estimate Consistent w auto 11/18/16 13:00 Clumped Platelets Not Reportable 11/18/16 13:00 Plt Clumps, EDTA Not Reportable 11/18/16 13:00 Large Platelets Not Reportable 11/18/16 13:00 Giant Platelets Not Reportable 11/18/16 13:00 Platelet Satelliting Not Reportable 11/18/16 13:00 Plt Morphology Comment Not Reportable 11/18/16 13:00 RBC Morphology Not Reportable 11/18/16 13:00 Dimorphic RBCs Not Reportable 11/18/16 13:00 Polychromasia Not Reportable 11/18/16 13:00 Hypochromasia Not Reportable 11/18/16 13:00 Poikilocytosis Not Reportable 11/18/16 13:00 Basophilic Stippling TNR 10/17/16 07:08 Anisocytosis 1+ 11/18/16 13:00 Microcytosis Not Reportable 11/18/16 13:00 Macrocytosis Not Reportable 11/18/16 13:00 Spherocytes Not Reportable 11/18/16 13:00 Pappenheimer Bodies Not Reportable 11/18/16 13:00 Sickle Cells Not Reportable 11/18/16 13:00 Target Cells Not Reportable 11/18/16 13:00 Tear Drop Cells Not Reportable 11/18/16 13:00 Ovalocytes Not Reportable 11/18/16 13:00 Stomatocytes Few 11/03/16 00:05 Helmet Cells Not Reportable 11/18/16 13:00 [place] Bodies Not Reportable 11/18/16 13:00 [place] Rings Not Reportable 11/18/16 13:00 Jeannette Cells Not Reportable 11/18/16 13:00 Bite Cells Not Reportable 11/18/16 13:00 Crenated Cell Not Reportable 11/18/16 13:00 Elliptocytes Not Reportable 11/18/16 13:00 Acanthocytes (Spur) Not Reportable 11/18/16 13:00 Rouleaux Not Reportable 11/18/16 13:00 Hemoglobin C Crystals Not Reportable 11/18/16 13:00 Schistocytes Not Reportable 11/18/16 13:00 Malaria parasites Not Reportable 11/18/16 13:00 David Bodies Not Reportable 11/18/16 13:00 Hem Pathologist Commnt No 11/18/16 13:00 PT 17.8 Sec. (12.2-14.9) H 11/30/16 05:04 INR 1.47 (0.87-1.13) H 11/30/16 05:04 APTT 131.1 Sec. (24.2-36.6) H* 11/18/16 05:45 Heparin Anti-Xa Level 0.51 U.I./ml (0.3-0.7) 11/18/16 11:16 POC ABG pH 7.331 (7.35-7.45) L 11/27/16 17:45 POC ABG pCO2 38.1 (35-45) 11/27/16 17:45 POC ABG pO2 46 (80-105) L 11/27/16 17:45 POC ABG HCO3 20.1 11/27/16 17:45 POC ABG Total CO2 21 11/27/16 17:45 POC ABG O2 Sat 79 11/27/16 17:45 POC ABG Base Excess -6 11/27/16 17:45 VBG pH 7.020 (7.320-7.420) L* 10/13/16 04:22 FiO2 40 % 11/27/16 17:45 Sodium 141 mmol/L (137-145) D 11/28/16 05:46 Potassium 4.2 mmol/L (3.6-5.0) 11/28/16 05:46 Chloride 105.4 mmol/L (98-107) 11/28/16 05:46 Carbon Dioxide 21 mmol/L (22-30) L 11/28/16 05:46 Anion Gap 19 mmol/L 11/28/16 05:46 BUN 27 mg/dL (7-17) H 11/28/16 05:46 Creatinine 0.8 mg/dL (0.7-1.2) 11/28/16 05:46 Estimated GFR > 60 ml/min 11/28/16 05:46 BUN/Creatinine Ratio 33.75 % 11/28/16 05:46 Glucose 237 mg/dL (65-100) H 11/28/16 05:46 POC Glucose 163 (70-105) H 11/30/16 11:59 Osmolality 332 Mosm/kg 10/14/16 07:03 Lactic Acid 1.8 mmol/L (0.7-2.0) 10/14/16 07:03 Calcium 8.1 mg/dL (8.4-10.2) L 11/28/16 05:46 Phosphorus 2.7 mg/dL (2.5-4.5) D 10/21/16 Unknown Magnesium 2.0 mg/dL (1.7-2.3) 11/20/16 05:00 Total Bilirubin 0.2 mg/dL (0.1-1.2) 11/19/16 04:30 AST 9 units/L (5-40) 11/19/16 04:30 ALT 7 units/L (7-56) 11/19/16 04:30 Alkaline Phosphatase 82 units/L (35-129) 11/19/16 04:30 Ammonia 35.0 umol/L (25-60) 10/13/16 05:40 Total Creatine Kinase 107 units/L (30-135) 10/13/16 04:22 CK-MB (CK-2) 3.1 ng/mL (0.0-4.0) 10/13/16 04:22 CK-MB (CK-2) Rel Index 2.8 (0-4) 10/13/16 04:22 Troponin T 0.090 ng/mL (0.00-0.029) H 11/28/16 05:46 C-Reactive Protein 10.50 mg/dL (0.00-1.30) H 10/13/16 16:14 Total Protein 5.5 g/dL (6.3-8.2) L 11/19/16 04:30 Albumin 2.1 g/dL (3.9-5) L 11/19/16 04:30 Albumin/Globulin Ratio 0.6 % 11/19/16 04:30 Triglycerides 154 mg/dL (2-149) H 11/28/16 05:46 Cholesterol 128 mg/dL (50-199) 11/28/16 05:46 LDL Cholesterol Direct 60 mg/dL (50-130) 11/28/16 05:46 HDL Cholesterol 38 mg/dL (40-59) L 11/28/16 05:46 Cholesterol/HDL Ratio 3.36 % 11/28/16 05:46 Amylase 30 units/L (27-131) 11/10/16 04:30 Lipase 41 units/L (13-60) 11/10/16 04:30 Vitamin B12 976.8 pg/mL (211-911) H 10/22/16 10:25 TSH 0.162 mlU/mL (0.270-4.200) L 10/22/16 14:50 Free T4 0.77 ng/dL (0.76-1.46) 10/22/16 14:50 Urine Color Yellow (Yellow) 11/14/16 19:39 Urine Turbidity Cloudy (Clear) 11/14/16 19:39 Urine pH 6.0 (5.0-7.0) 11/14/16 19:39 Ur Specific [place] 1.010 (1.003-1.030) 11/14/16 19:39 Urine Protein 30 mg/dl mg/dL (Negative) 11/14/16 19:39 Urine Glucose (UA) 50 mg/dL (Negative) 11/14/16 19:39 Urine Ketones 20 mg/dL (Negative) 11/14/16 19:39 Urine Blood Lg (Negative) 11/14/16 19:39 Urine Nitrite Neg (Negative) 11/14/16 19:39 Urine Bilirubin Neg (Negative) 11/14/16 19:39 Urine Urobilinogen < 2.0 mg/dL (<2.0) 11/14/16 19:39 Ur Leukocyte Esterase Sm (Negative) 11/14/16 19:39 Urine WBC (Auto) 3.0 /HPF (0.0-6.0) 11/14/16 19:39 Urine RBC (Auto) > 182.0 /HPF (0.0-6.0) 11/14/16 19:39 U Epithel Cells (Auto) 1.0 /HPF (0-13.0) 10/15/16 11:05 Urine Bacteria (Auto) 1+ /HPF (Negative) 11/14/16 19:39 Urine Mucus Few /HPF 11/14/16 19:39 Urine Yeast (Budding) 2+ /HPF 10/15/16 11:05 Urine Osmolality 487 Mosm/kg 10/13/16 Unknown Urine Creatinine < 4.2 mg/dL (0.1-20.0) 10/13/16 Unknown Protein/Creatinin Ratio 0.00 10/13/16 Unknown Urine Sodium 10 mEq/L 10/13/16 Unknown Urine Potassium 1.00 mEq/L 10/13/16 Unknown Urine Chloride 10.0 mEq/L (110-250) L 10/13/16 Unknown Urine Total Protein < 4 mg/dL (5-11.8) L 10/13/16 Unknown Vancomycin Trough 30.4 ug/mL (5.0-20.0) H 11/21/16 09:50 Random Vancomycin 20.8 ug/mL (0-40.0) 11/23/16 04:00 Ketones 107.3 mg/dL (0.2-2.8) H 10/13/16 04:22 Blood Type A POSITIVE 11/03/16 18:01 Antibody Screen Negative 11/03/16 18:01 Crossmatch See Detail 11/03/16 18:01
[2016-11-30] MEDS: DURAGESIC TD SCH (14:18)
--- NOTE | 2016-11-30 16:27 | Progress Note ---
Assessment and Plan - Patient Problems (1) Acute respiratory failure with hypercapnia Current Visit: Yes Status: Acute Plan to address problem: Continue with mechanical ventilatory support. Weaning/Spontaneous breathing trials as tolerated VAP bundle Critical bundles addressed Agitation management HOB >40, aspiration precautions VTE/Stress ulcer prophylaxis Glycemic control (2) DKA (diabetic ketoacidoses) Current Visit: Yes Status: Acute Qualifiers: Diabetes mellitus type: D Diabetes mellitus complication detail: D Plan to address problem: Continue with accucheck and glycemic control. Glycemic control is acceptable Monitor closely. (3) Altered mental status Current Visit: Yes Status: Acute Qualifiers: Altered mental status type: A Coma depth: C Coma timing: C (4) Acidosis Current Visit: Yes Status: Acute (5) Acute on chronic renal failure Current Visit: Yes Status: Acute (6) Sepsis Current Visit: Yes Status: Acute Qualifiers: Sepsis type: S Plan to address problem: Resolving (7) DVT (deep venous thrombosis) Current Visit: Yes Status: Acute Qualifiers: DVT location: upper extremity Affected thrombotic vein of extremity: A Laterality: L Chronicity: C (8) Discharge planning issues Current Visit: Yes Status: Acute Plan to address problem: Discussed discharge care plan with the case management in the critical care unit. updated at the bedside. Awaiting a bed at a [facility] facility with capabilities for terminal worker care (9) Cold foot Current Visit: Yes Status: Acute Qualifiers: Laterality: L Plan to address problem: s/p BKA (10) Hypertensive urgency, malignant Current Visit: Yes Status: Acute Plan to address problem: Blood pressure control much better. Increased metoprolol dose while monitoring blood pressure control. On lisinopril and monitor renal indices. Subjective Date of service: 11/30/16 Principal diagnosis: respiratory failure on mechanical ventilatory support, DKA Interval history: Patient seen and examined. Vitals, labs, medications, chart reviewed On-going encephalopathy and agitation s/p tracheostomy Right UExt DVT at the bedside. No acute overnight events reported Objective Vital Signs - 12hr 11/30/16 11/30/16 11/30/16 04:27 04:30 05:00 Temperature 99.9 F H Pulse Rate 76 75 Pulse Rate [ From Monitor] Respiratory 19 23 Rate Blood Pressure 160/70 153/67 O2 Sat by Pulse 100 100 Oximetry O2 Sat by Pulse Oximetry [ Assessment] 11/30/16 11/30/1611/30/17 05:30 05:31 06:00 Temperature Pulse Rate 82 78 Pulse Rate [ From Monitor] Respiratory 30 H 28 H 27 H Rate Blood Pressure 168/80 127/70 O2 Sat by Pulse 100 100 Oximetry O2 Sat by Pulse Oximetry [ Assessment] 11/30/16 11/30/16 11/30/16 06:11 06:30 07:00 Temperature Pulse Rate 74 76 Pulse Rate [ From Monitor] Respiratory 24 22 16 Rate Blood Pressure 137/63 144/63 O2 Sat by Pulse 100 100 Oximetry O2 Sat by Pulse Oximetry [ Assessment] 11/30/16 11/30/16 11/30/16 07:30 07:43 07:46 Temperature 98.7 F Pulse Rate 76 77 Pulse Rate [ From Monitor] Respiratory 20 Rate Blood Pressure 140/60 140/60 O2 Sat by Pulse 100 100 Oximetry O2 Sat by Pulse Oximetry [ Assessment] 11/30/16 11/30/16 11/30/16 07:48 08:00 08:30 Temperature Pulse Rate 75 79 Pulse Rate [ 75 From Monitor] Respiratory 19 25 H Rate Blood Pressure 136/55 149/68 O2 Sat by Pulse 100 100 Oximetry O2 Sat by Pulse 100 Oximetry [ Assessment] 11/30/16 11/30/16 11/30/16 09:00 09:30 09:50 Temperature Pulse Rate 80 80 81 Pulse Rate [ From Monitor] Respiratory 18 19 Rate Blood Pressure 142/60 138/59 143/61 O2 Sat by Pulse 100 100 Oximetry O2 Sat by Pulse Oximetry [ Assessment] 11/30/16 11/30/16 11/30/16 10:00 10:30 11:55 Temperature Pulse Rate 81 73 79 Pulse Rate [ From Monitor] Respiratory 23 15 Rate Blood Pressure 143/60 137/57 149/65 O2 Sat by Pulse 100 100 100 Oximetry O2 Sat by Pulse Oximetry [ Assessment] 11/30/16 11/30/16 12:00 14:18 Temperature 98.9 F Pulse Rate 82 Pulse Rate [ From Monitor] Respiratory Rate Blood Pressure 159/69 O2 Sat by Pulse Oximetry O2 Sat by Pulse Oximetry [ Assessment] Constitutional: no acute distress, lethargic, appears uncomfortable, other ( Patient likely has anoxic encephalopathy, s/p trach to vent) Eyes: non-icteric ENT: oropharynx moist Neck: supple, no lymphadenopathy, no JVD Effort: normal, mildly labored Ascultation: Bilateral: clear, diminished breath sounds Cardiovascular: regular rate and rhythm, other (S1,S2, No murmurs) Gastrointestinal: normoactive bowel sounds, soft, non-distended, other ( Gastrostomy tube) Integumentary: normal Extremities: no cyanosis, no edema, no ischemia or petechiae, other (s/p right BKA. right UExt Edema) Neurologic: unable to assess, other (encephalopathic) Psychiatric: other (encephalopathic) CBC and BMP: 11/28/16 05:46 11/28/16 05:46 ABG, PT/INR, D-dimer: ABG POC ABG pH 7.331 (7.35-7.45) L 11/27/16 17:45 POC ABG pCO2 38.1 (35-45) 11/27/16 17:45 POC ABG pO2 46 (80-105) L 11/27/16 17:45 POC ABG HCO3 20.1 11/27/16 17:45 POC ABG Total CO2 21 11/27/16 17:45 POC ABG O2 Sat 79 11/27/16 17:45 PT/INR, D-dimer PT 17.8 Sec. (12.2-14.9) H 11/30/16 05:04 INR 1.47 (0.87-1.13) H 11/30/16 05:04 Abnormal lab findings: Abnormal Labs 10/13/16 10/13/16 10/13/16 06:38 06:38 07:23 WBC RBC Hgb Hct MCV RDW Plt Count Lymph % (Auto) [place] % (Auto) [place] # Seg Neutrophils % Seg Neuts % (Manual) Lymphocytes % (Manual) Monocytes % (Manual) Basophils % (Manual) Nucleated RBC % Seg Neutrophils # Seg Neutrophils # Man Lymphocytes # (Manual) Monocytes # (Manual) Eosinophils # (Manual) Basophils # (Manual) PT INR APTT Heparin Anti-Xa Level POC ABG pH POC ABG pCO2 POC ABG pO2 Sodium Potassium 6.2 H* Chloride Carbon Dioxide 8 L* BUN 85 H Creatinine 2.8 H Glucose 602 H* POC Glucose 495 H Calcium 7.9 L Phosphorus 6.9 H D Magnesium 3.0 H AST Alkaline Phosphatase Troponin T C-Reactive Protein Total Protein Albumin Triglycerides HDL Cholesterol Lipase Vitamin B12 TSH Urine WBC (Auto) Urine Chloride Urine Total Protein Vancomycin Trough Crossmatch 10/13/16 10/13/16 10/13/16 08:49 08:55 10:12 WBC RBC Hgb Hct MCV RDW Plt Count Lymph % (Auto) [place] % (Auto) [place] # Seg Neutrophils % Seg Neuts % (Manual) Lymphocytes % (Manual) Monocytes % (Manual) Basophils % (Manual) Nucleated RBC % Seg Neutrophils # Seg Neutrophils # Man Lymphocytes # (Manual) Monocytes # (Manual) Eosinophils # (Manual) Basophils # (Manual) PT INR APTT Heparin Anti-Xa Level POC ABG pH POC ABG pCO2 POC ABG pO2 Sodium Potassium 5.6 H Chloride Carbon Dioxide 11 L BUN 77 H Creatinine 2.7 H Glucose 457 H POC Glucose > 500 H 424 H Calcium 8.0 L Phosphorus Magnesium AST Alkaline Phosphatase Troponin T C-Reactive Protein Total Protein Albumin Triglycerides HDL Cholesterol Lipase Vitamin B12 TSH Urine WBC (Auto) Urine Chloride Urine Total Protein Vancomycin Trough Crossmatch 10/13/16 10/13/16 10/13/16 10:44 11:22 12:20 WBC RBC Hgb Hct MCV RDW Plt Count Lymph % (Auto) [place] % (Auto) [place] # Seg Neutrophils % Seg Neuts % (Manual) Lymphocytes % (Manual) Monocytes % (Manual) Basophils % (Manual) Nucleated RBC % Seg Neutrophils # Seg Neutrophils # Man Lymphocytes # (Manual) Monocytes # (Manual) Eosinophils # (Manual) Basophils # (Manual) PT INR APTT Heparin Anti-Xa Level POC ABG pH POC ABG pCO2 POC ABG pO2 Sodium Potassium 5.4 H Chloride Carbon Dioxide 14 L BUN 72 H Creatinine 2.6 H Glucose 383 H POC Glucose 391 H 313 H Calcium 8.2 L Phosphorus Magnesium AST Alkaline Phosphatase Troponin T C-Reactive Protein Total Protein Albumin Triglycerides HDL Cholesterol Lipase Vitamin B12 TSH Urine WBC (Auto) Urine Chloride Urine Total Protein Vancomycin Trough Crossmatch 10/13/16 10/13/16 10/13/16 13:32 14:44 15:57 WBC RBC Hgb Hct MCV RDW Plt Count Lymph % (Auto) [place] % (Auto) [place] # Seg Neutrophils % Seg Neuts % (Manual) Lymphocytes % (Manual) Monocytes % (Manual) Basophils % (Manual) Nucleated RBC % Seg Neutrophils # Seg Neutrophils # Man Lymphocytes # (Manual) Monocytes # (Manual) Eosinophils # (Manual) Basophils # (Manual) PT INR APTT Heparin Anti-Xa Level POC ABG pH POC ABG pCO2 POC ABG pO2 Sodium Potassium Chloride Carbon Dioxide BUN Creatinine Glucose POC Glucose 296 H 210 H 190 H Calcium Phosphorus Magnesium AST Alkaline Phosphatase Troponin T C-Reactive Protein Total Protein Albumin Triglycerides HDL Cholesterol Lipase Vitamin B12 TSH Urine WBC (Auto) Urine Chloride Urine Total Protein Vancomycin Trough Crossmatch 10/13/16 10/13/16 10/13/16 16:14 16:14 17:17 WBC RBC Hgb Hct MCV RDW Plt Count Lymph % (Auto) [place] % (Auto) [place] # Seg Neutrophils % Seg Neuts % (Manual) Lymphocytes % (Manual) Monocytes % (Manual) Basophils % (Manual) Nucleated RBC % Seg Neutrophils # Seg Neutrophils # Man Lymphocytes # (Manual) Monocytes # (Manual) Eosinophils # (Manual) Basophils # (Manual) PT INR APTT Heparin Anti-Xa Level POC ABG pH POC ABG pCO2 POC ABG pO2 Sodium Potassium Chloride Carbon Dioxide 17 L BUN 58 H Creatinine 1.8 H Glucose 172 H POC Glucose 193 H Calcium 7.7 L Phosphorus Magnesium AST Alkaline Phosphatase Troponin T C-Reactive Protein 10.50 H Total Protein Albumin Triglycerides HDL Cholesterol Lipase Vitamin B12 TSH Urine WBC (Auto) Urine Chloride Urine Total Protein Vancomycin Trough Crossmatch 10/13/16 10/13/16 10/13/16 17:55 18:32 19:41 WBC RBC Hgb Hct MCV RDW Plt Count Lymph % (Auto) [place] % (Auto) [place] # Seg Neutrophils % Seg Neuts % (Manual) Lymphocytes % (Manual) Monocytes % (Manual) Basophils % (Manual) Nucleated RBC % Seg Neutrophils # Seg Neutrophils # Man Lymphocytes # (Manual) Monocytes # (Manual) Eosinophils # (Manual) Basophils # (Manual) PT INR APTT Heparin Anti-Xa Level POC ABG pH POC ABG pCO2 30.6 L POC ABG pO2 218 H Sodium Potassium Chloride Carbon Dioxide BUN Creatinine Glucose POC Glucose 192 H 177 H Calcium Phosphorus Magnesium AST Alkaline Phosphatase Troponin T C-Reactive Protein Total Protein Albumin Triglycerides HDL Cholesterol Lipase Vitamin B12 TSH Urine WBC (Auto) Urine Chloride Urine Total Protein Vancomycin Trough Crossmatch 10/13/16 10/13/16 10/13/16 20:54 22:07 23:13 WBC RBC Hgb Hct MCV RDW Plt Count Lymph % (Auto) [place] % (Auto) [place] # Seg Neutrophils % Seg Neuts % (Manual) Lymphocytes % (Manual) Monocytes % (Manual) Basophils % (Manual) Nucleated RBC % Seg Neutrophils # Seg Neutrophils # Man Lymphocytes # (Manual) Monocytes # (Manual) Eosinophils # (Manual) Basophils # (Manual) PT INR APTT Heparin Anti-Xa Level POC ABG pH POC ABG pCO2 POC ABG pO2 Sodium Potassium Chloride Carbon Dioxide BUN Creatinine Glucose POC Glucose 178 H 160 H 168 H Calcium Phosphorus Magnesium AST Alkaline Phosphatase Troponin T C-Reactive Protein Total Protein Albumin Triglycerides HDL Cholesterol Lipase Vitamin B12 TSH Urine WBC (Auto) Urine Chloride Urine Total Protein Vancomycin Trough Crossmatch 10/13/16 10/13/16 10/14/16 23:25 Unknown 00:21 WBC RBC Hgb Hct MCV RDW Plt Count Lymph % (Auto) [place] % (Auto) [place] # Seg Neutrophils % Seg Neuts % (Manual) Lymphocytes % (Manual) Monocytes % (Manual) Basophils % (Manual) Nucleated RBC % Seg Neutrophils # Seg Neutrophils # Man Lymphocytes # (Manual) Monocytes # (Manual) Eosinophils # (Manual) Basophils # (Manual) PT INR APTT Heparin Anti-Xa Level POC ABG pH POC ABG pCO2 POC ABG pO2 Sodium 148 H Potassium Chloride 114.6 H Carbon Dioxide 17 L BUN 56 H Creatinine 1.6 H Glucose 151 H POC Glucose 171 H Calcium 7.8 L Phosphorus Magnesium AST Alkaline Phosphatase Troponin T C-Reactive Protein Total Protein Albumin Triglycerides HDL Cholesterol Lipase Vitamin B12 TSH Urine WBC (Auto) Urine Chloride 10.0 L Urine Total Protein < 4 L Vancomycin Trough Crossmatch 10/14/16 10/14/16 10/14/16 01:22 02:29 03:30 WBC RBC Hgb Hct MCV RDW Plt Count Lymph % (Auto) [place] % (Auto) [place] # Seg Neutrophils % Seg Neuts % (Manual) Lymphocytes % (Manual) Monocytes % (Manual) Basophils % (Manual) Nucleated RBC % Seg Neutrophils # Seg Neutrophils # Man Lymphocytes # (Manual) Monocytes # (Manual) Eosinophils # (Manual) Basophils # (Manual) PT INR APTT Heparin Anti-Xa Level POC ABG pH POC ABG pCO2 POC ABG pO2 Sodium Potassium Chloride Carbon Dioxide BUN Creatinine Glucose POC Glucose 144 H 136 H 143 H Calcium Phosphorus Magnesium AST Alkaline Phosphatase Troponin T C-Reactive Protein Total Protein Albumin Triglycerides HDL Cholesterol Lipase Vitamin B12 TSH Urine WBC (Auto) Urine Chloride Urine Total Protein Vancomycin Trough Crossmatch 10/14/16 10/14/16 10/14/16 04:28 05:16 05:44 WBC RBC Hgb Hct MCV RDW Plt Count Lymph % (Auto) [place] % (Auto) [place] # Seg Neutrophils % Seg Neuts % (Manual) Lymphocytes % (Manual) Monocytes % (Manual) Basophils % (Manual) Nucleated RBC % Seg Neutrophils # Seg Neutrophils # Man Lymphocytes # (Manual) Monocytes # (Manual) Eosinophils # (Manual) Basophils # (Manual) PT INR APTT Heparin Anti-Xa Level POC ABG pH POC ABG pCO2 28.2 L POC ABG pO2 125 H Sodium Potassium Chloride Carbon Dioxide BUN Creatinine Glucose POC Glucose 133 H 160 H Calcium Phosphorus Magnesium AST Alkaline Phosphatase Troponin T C-Reactive Protein Total Protein Albumin Triglycerides HDL Cholesterol Lipase Vitamin B12 TSH Urine WBC (Auto) Urine Chloride Urine Total Protein Vancomycin Trough Crossmatch 10/14/16 10/14/16 10/14/16 06:12 06:45 07:03 WBC RBC Hgb Hct MCV RDW Plt Count Lymph % (Auto) [place] % (Auto) [place] # Seg Neutrophils % Seg Neuts % (Manual) Lymphocytes % (Manual) Monocytes % (Manual) Basophils % (Manual) Nucleated RBC % Seg Neutrophils # Seg Neutrophils # Man Lymphocytes # (Manual) Monocytes # (Manual) Eosinophils # (Manual) Basophils # (Manual) PT INR APTT Heparin Anti-Xa Level POC ABG pH POC ABG pCO2 POC ABG pO2 Sodium 149 H Potassium Chloride 115.4 H Carbon Dioxide 17 L BUN 45 H Creatinine 1.5 H Glucose 139 H POC Glucose 149 H Calcium 7.4 L Phosphorus 1.0 L D Magnesium AST Alkaline Phosphatase Troponin T C-Reactive Protein Total Protein Albumin Triglycerides HDL Cholesterol Lipase Vitamin B12 TSH Urine WBC (Auto) Urine Chloride Urine Total Protein Vancomycin Trough Crossmatch 10/14/16 10/14/16 10/14/16 07:03 08:02 09:16 WBC RBC Hgb Hct MCV RDW Plt Count Lymph % (Auto) [place] % (Auto) [place] # Seg Neutrophils % Seg Neuts % (Manual) Lymphocytes % (Manual) Monocytes % (Manual) Basophils % (Manual) Nucleated RBC % Seg Neutrophils # Seg Neutrophils # Man Lymphocytes # (Manual) Monocytes # (Manual) Eosinophils # (Manual) Basophils # (Manual) PT INR APTT Heparin Anti-Xa Level POC ABG pH POC ABG pCO2 POC ABG pO2 Sodium Potassium Chloride Carbon Dioxide BUN Creatinine Glucose POC Glucose 156 H 158 H Calcium Phosphorus Magnesium AST Alkaline Phosphatase Troponin T C-Reactive Protein Total Protein Albumin Triglycerides HDL Cholesterol Lipase 738 H Vitamin B12 TSH Urine WBC (Auto) Urine Chloride Urine Total Protein Vancomycin Trough Crossmatch 10/14/16 10/14/16 10/14/16 10:26 11:03 11:57 WBC RBC Hgb Hct MCV RDW Plt Count Lymph % (Auto) [place] % (Auto) [place] # Seg Neutrophils % Seg Neuts % (Manual) Lymphocytes % (Manual) Monocytes % (Manual) Basophils % (Manual) Nucleated RBC % Seg Neutrophils # Seg Neutrophils # Man Lymphocytes # (Manual) Monocytes # (Manual) Eosinophils # (Manual) Basophils # (Manual) PT INR APTT Heparin Anti-Xa Level POC ABG pH 7.198 L POC ABG pCO2 47.5 H POC ABG pO2 Sodium Potassium Chloride Carbon Dioxide BUN Creatinine Glucose POC Glucose 174 H 189 H Calcium Phosphorus Magnesium AST Alkaline Phosphatase Troponin T C-Reactive Protein Total Protein Albumin Triglycerides HDL Cholesterol Lipase Vitamin B12 TSH Urine WBC (Auto) Urine Chloride Urine Total Protein Vancomycin Trough Crossmatch 10/14/16 10/14/16 10/14/16 12:02 12:02 13:11 WBC 13.4 H RBC 3.60 L Hgb Hct MCV 98 H D RDW 13.1 L Plt Count Lymph % (Auto) [place] % (Auto) [place] # Seg Neutrophils % Seg Neuts % (Manual) Lymphocytes % (Manual) Monocytes % (Manual) Basophils % (Manual) Nucleated RBC % Seg Neutrophils # Seg Neutrophils # Man Lymphocytes # (Manual) Monocytes # (Manual) Eosinophils # (Manual) Basophils # (Manual) PT INR APTT Heparin Anti-Xa Level POC ABG pH POC ABG pCO2 POC ABG pO2 Sodium Potassium Chloride 110.7 H Carbon Dioxide 19 L BUN 38 H Creatinine 1.4 H Glucose 182 H POC Glucose 173 H Calcium 7.5 L Phosphorus Magnesium AST Alkaline Phosphatase Troponin T C-Reactive Protein Total Protein Albumin Triglycerides HDL Cholesterol Lipase Vitamin B12 TSH Urine WBC (Auto) Urine Chloride Urine Total Protein Vancomycin Trough Crossmatch 10/14/16 10/14/16 10/14/16 14:24 15:31 16:36 WBC RBC Hgb Hct MCV RDW Plt Count Lymph % (Auto) [place] % (Auto) [place] # Seg Neutrophils % Seg Neuts % (Manual) Lymphocytes % (Manual) Monocytes % (Manual) Basophils % (Manual) Nucleated RBC % Seg Neutrophils # Seg Neutrophils # Man Lymphocytes # (Manual) Monocytes # (Manual) Eosinophils # (Manual) Basophils # (Manual) PT INR APTT Heparin Anti-Xa Level POC ABG pH POC ABG pCO2 POC ABG pO2 Sodium Potassium Chloride Carbon Dioxide BUN Creatinine Glucose POC Glucose 123 H 124 H 156 H Calcium Phosphorus Magnesium AST Alkaline Phosphatase Troponin T C-Reactive Protein Total Protein Albumin Triglycerides HDL Cholesterol Lipase Vitamin B12 TSH Urine WBC (Auto) Urine Chloride Urine Total Protein Vancomycin Trough Crossmatch 10/14/16 10/14/16 10/14/16 17:43 19:00 20:08 WBC RBC Hgb Hct MCV RDW Plt Count Lymph % (Auto) [place] % (Auto) [place] # Seg Neutrophils % Seg Neuts % (Manual) Lymphocytes % (Manual) Monocytes % (Manual) Basophils % (Manual) Nucleated RBC % Seg Neutrophils # Seg Neutrophils # Man Lymphocytes # (Manual) Monocytes # (Manual) Eosinophils # (Manual) Basophils # (Manual) PT INR APTT Heparin Anti-Xa Level POC ABG pH POC ABG pCO2 POC ABG pO2 Sodium Potassium Chloride Carbon Dioxide BUN Creatinine Glucose POC Glucose 154 H 123 H 138 H Calcium Phosphorus Magnesium AST Alkaline Phosphatase Troponin T C-Reactive Protein Total Protein Albumin Triglycerides HDL Cholesterol Lipase Vitamin B12 TSH Urine WBC (Auto) Urine Chloride Urine Total Protein Vancomycin Trough Crossmatch 10/14/16 10/14/16 10/14/16 21:17 22:25 23:37 WBC RBC Hgb Hct MCV RDW Plt Count Lymph % (Auto) [place] % (Auto) [place] # Seg Neutrophils % Seg Neuts % (Manual) Lymphocytes % (Manual) Monocytes % (Manual) Basophils % (Manual) Nucleated RBC % Seg Neutrophils # Seg Neutrophils # Man Lymphocytes # (Manual) Monocytes # (Manual) Eosinophils # (Manual) Basophils # (Manual) PT INR APTT Heparin Anti-Xa Level POC ABG pH POC ABG pCO2 POC ABG pO2 Sodium Potassium Chloride Carbon Dioxide BUN Creatinine Glucose POC Glucose 148 H 132 H 137 H Calcium Phosphorus Magnesium AST Alkaline Phosphatase Troponin T C-Reactive Protein Total Protein Albumin Triglycerides HDL Cholesterol Lipase Vitamin B12 TSH Urine WBC (Auto) Urine Chloride Urine Total Protein Vancomycin Trough Crossmatch 10/15/16 10/15/16 10/15/16 00:49 01:53 03:06 WBC RBC Hgb Hct MCV RDW Plt Count Lymph % (Auto) [place] % (Auto) [place] # Seg Neutrophils % Seg Neuts % (Manual) Lymphocytes % (Manual) Monocytes % (Manual) Basophils % (Manual) Nucleated RBC % Seg Neutrophils # Seg Neutrophils # Man Lymphocytes # (Manual) Monocytes # (Manual) Eosinophils # (Manual) Basophils # (Manual) PT INR APTT Heparin Anti-Xa Level POC ABG pH POC ABG pCO2 POC ABG pO2 Sodium Potassium Chloride Carbon Dioxide BUN Creatinine Glucose POC Glucose 132 H 134 H 134 H Calcium Phosphorus Magnesium AST Alkaline Phosphatase Troponin T C-Reactive Protein Total Protein Albumin Triglycerides HDL Cholesterol Lipase Vitamin B12 TSH Urine WBC (Auto) Urine Chloride Urine Total Protein Vancomycin Trough Crossmatch 10/15/16 10/15/16 10/15/16 04:40 04:46 06:21 WBC RBC Hgb Hct MCV RDW Plt Count Lymph % (Auto) [place] % (Auto) [place] # Seg Neutrophils % Seg Neuts % (Manual) Lymphocytes % (Manual) Monocytes % (Manual) Basophils % (Manual) Nucleated RBC % Seg Neutrophils # Seg Neutrophils # Man Lymphocytes # (Manual) Monocytes # (Manual) Eosinophils # (Manual) Basophils # (Manual) PT INR APTT Heparin Anti-Xa Level POC ABG pH POC ABG pCO2 30.7 L POC ABG pO2 108 H Sodium Potassium Chloride 109.0 H Carbon Dioxide 17 L BUN 27 H Creatinine Glucose 124 H POC Glucose 160 H Calcium 7.5 L Phosphorus Magnesium AST 79 H Alkaline Phosphatase Troponin T C-Reactive Protein Total Protein 5.5 L Albumin 3.0 L Triglycerides HDL Cholesterol Lipase Vitamin B12 TSH Urine WBC (Auto) Urine Chloride Urine Total Protein Vancomycin Trough Crossmatch 10/15/16 10/15/16 10/15/16 07:12 08:01 09:03 WBC RBC Hgb Hct MCV RDW Plt Count Lymph % (Auto) [place] % (Auto) [place] # Seg Neutrophils % Seg Neuts % (Manual) Lymphocytes % (Manual) Monocytes % (Manual) Basophils % (Manual) Nucleated RBC % Seg Neutrophils # Seg Neutrophils # Man Lymphocytes # (Manual) Monocytes # (Manual) Eosinophils # (Manual) Basophils # (Manual) PT INR APTT Heparin Anti-Xa Level POC ABG pH POC ABG pCO2 POC ABG pO2 Sodium Potassium Chloride Carbon Dioxide BUN Creatinine Glucose POC Glucose 179 H 187 H 165 H Calcium Phosphorus Magnesium AST Alkaline Phosphatase Troponin T C-Reactive Protein Total Protein Albumin Triglycerides HDL Cholesterol Lipase Vitamin B12 TSH Urine WBC (Auto) Urine Chloride Urine Total Protein Vancomycin Trough Crossmatch 10/15/16 10/15/16 10/15/16 10:06 10:06 10:07 WBC 12.1 H RBC 3.01 L Hgb 9.7 L Hct 29.6 L MCV 98 H RDW Plt Count 129 L Lymph % (Auto) [place] % (Auto) [place] # Seg Neutrophils % Seg Neuts % (Manual) Lymphocytes % (Manual) Monocytes % (Manual) Basophils % (Manual) Nucleated RBC % Seg Neutrophils # Seg Neutrophils # Man Lymphocytes # (Manual) Monocytes # (Manual) Eosinophils # (Manual) Basophils # (Manual) PT INR APTT Heparin Anti-Xa Level POC ABG pH POC ABG pCO2 POC ABG pO2 Sodium Potassium 3.2 L D Chloride 109.6 H Carbon Dioxide 18 L BUN 22 H Creatinine Glucose 127 H POC Glucose 147 H Calcium 7.0 L Phosphorus Magnesium AST Alkaline Phosphatase Troponin T C-Reactive Protein Total Protein Albumin Triglycerides HDL Cholesterol Lipase Vitamin B12 TSH Urine WBC (Auto) Urine Chloride Urine Total Protein Vancomycin Trough Crossmatch 10/15/16 10/15/16 10/15/16 11:05 11:06 11:57 WBC RBC Hgb Hct MCV RDW Plt Count Lymph % (Auto) [place] % (Auto) [place] # Seg Neutrophils % Seg Neuts % (Manual) Lymphocytes % (Manual) Monocytes % (Manual) Basophils % (Manual) Nucleated RBC % Seg Neutrophils # Seg Neutrophils # Man Lymphocytes # (Manual) Monocytes # (Manual) Eosinophils # (Manual) Basophils # (Manual) PT INR APTT Heparin Anti-Xa Level POC ABG pH 7.305 L POC ABG pCO2 POC ABG pO2 Sodium Potassium Chloride Carbon Dioxide BUN Creatinine Glucose POC Glucose 145 H Calcium Phosphorus Magnesium AST Alkaline Phosphatase Troponin T C-Reactive Protein Total Protein Albumin Triglycerides HDL Cholesterol Lipase Vitamin B12 TSH Urine WBC (Auto) 7.0 H Urine Chloride Urine Total Protein Vancomycin Trough Crossmatch 10/15/16 10/15/16 10/15/16 12:04 13:59 15:24 WBC RBC Hgb Hct MCV RDW Plt Count Lymph % (Auto) [place] % (Auto) [place] # Seg Neutrophils % Seg Neuts % (Manual) Lymphocytes % (Manual) Monocytes % (Manual) Basophils % (Manual) Nucleated RBC % Seg Neutrophils # Seg Neutrophils # Man Lymphocytes # (Manual) Monocytes # (Manual) Eosinophils # (Manual) Basophils # (Manual) PT INR APTT Heparin Anti-Xa Level POC ABG pH POC ABG pCO2 POC ABG pO2 Sodium Potassium Chloride Carbon Dioxide BUN Creatinine Glucose POC Glucose 123 H 147 H 153 H Calcium Phosphorus Magnesium AST Alkaline Phosphatase Troponin T C-Reactive Protein Total Protein Albumin Triglycerides HDL Cholesterol Lipase Vitamin B12 TSH Urine WBC (Auto) Urine Chloride Urine Total Protein Vancomycin Trough Crossmatch 10/15/16 10/15/16 10/15/16 16:30 17:34 18:30 WBC RBC Hgb Hct MCV RDW Plt Count Lymph % (Auto) [place] % (Auto) [place] # Seg Neutrophils % Seg Neuts % (Manual) Lymphocytes % (Manual) Monocytes % (Manual) Basophils % (Manual) Nucleated RBC % Seg Neutrophils # Seg Neutrophils # Man Lymphocytes # (Manual) Monocytes # (Manual) Eosinophils # (Manual) Basophils # (Manual) PT INR APTT Heparin Anti-Xa Level POC ABG pH POC ABG pCO2 POC ABG pO2 Sodium Potassium Chloride Carbon Dioxide BUN Creatinine Glucose POC Glucose 223 H 236 H 164 H Calcium Phosphorus Magnesium AST Alkaline Phosphatase Troponin T C-Reactive Protein Total Protein Albumin Triglycerides HDL Cholesterol Lipase Vitamin B12 TSH Urine WBC (Auto) Urine Chloride Urine Total Protein Vancomycin Trough Crossmatch 10/15/16 10/15/16 10/15/16 19:14 20:31 21:23 WBC RBC Hgb Hct MCV RDW Plt Count Lymph % (Auto) [place] % (Auto) [place] # Seg Neutrophils % Seg Neuts % (Manual) Lymphocytes % (Manual) Monocytes % (Manual) Basophils % (Manual) Nucleated RBC % Seg Neutrophils # Seg Neutrophils # Man Lymphocytes # (Manual) Monocytes # (Manual) Eosinophils # (Manual) Basophils # (Manual) PT INR APTT Heparin Anti-Xa Level POC ABG pH POC ABG pCO2 POC ABG pO2 Sodium Potassium Chloride Carbon Dioxide BUN Creatinine Glucose POC Glucose 138 H 158 H 158 H Calcium Phosphorus Magnesium AST Alkaline Phosphatase Troponin T C-Reactive Protein Total Protein Albumin Triglycerides HDL Cholesterol Lipase Vitamin B12 TSH Urine WBC (Auto) Urine Chloride Urine Total Protein Vancomycin Trough Crossmatch 10/15/16 10/15/16 10/16/16 22:04 22:57 00:11 WBC RBC Hgb Hct MCV RDW Plt Count Lymph % (Auto) [place] % (Auto) [place] # Seg Neutrophils % Seg Neuts % (Manual) Lymphocytes % (Manual) Monocytes % (Manual) Basophils % (Manual) Nucleated RBC % Seg Neutrophils # Seg Neutrophils # Man Lymphocytes # (Manual) Monocytes # (Manual) Eosinophils # (Manual) Basophils # (Manual) PT INR APTT Heparin Anti-Xa Level POC ABG pH POC ABG pCO2 POC ABG pO2 Sodium Potassium Chloride Carbon Dioxide BUN Creatinine Glucose POC Glucose 168 H 213 H 166 H Calcium Phosphorus Magnesium AST Alkaline Phosphatase Troponin T C-Reactive Protein Total Protein Albumin Triglycerides HDL Cholesterol Lipase Vitamin B12 TSH Urine WBC (Auto) Urine Chloride Urine Total Protein Vancomycin Trough Crossmatch 10/16/16 10/16/16 10/16/16 01:16 02:32 03:38 WBC RBC Hgb Hct MCV RDW Plt Count Lymph % (Auto) [place] % (Auto) [place] # Seg Neutrophils % Seg Neuts % (Manual) Lymphocytes % (Manual) Monocytes % (Manual) Basophils % (Manual) Nucleated RBC % Seg Neutrophils # Seg Neutrophils # Man Lymphocytes # (Manual) Monocytes # (Manual) Eosinophils # (Manual) Basophils # (Manual) PT INR APTT Heparin Anti-Xa Level POC ABG pH POC ABG pCO2 POC ABG pO2 Sodium Potassium Chloride Carbon Dioxide BUN Creatinine Glucose POC Glucose 171 H 164 H 147 H Calcium Phosphorus Magnesium AST Alkaline Phosphatase Troponin T C-Reactive Protein Total Protein Albumin Triglycerides HDL Cholesterol Lipase Vitamin B12 TSH Urine WBC (Auto) Urine Chloride Urine Total Protein Vancomycin Trough Crossmatch 10/16/16 10/16/16 10/16/16 04:14 04:14 04:49 WBC RBC Hgb Hct MCV RDW Plt Count Lymph % (Auto) [place] % (Auto) [place] # Seg Neutrophils % Seg Neuts % (Manual) Lymphocytes % (Manual) Monocytes % (Manual) Basophils % (Manual) Nucleated RBC % Seg Neutrophils # Seg Neutrophils # Man Lymphocytes # (Manual) Monocytes # (Manual) Eosinophils # (Manual) Basophils # (Manual) PT INR APTT Heparin Anti-Xa Level POC ABG pH POC ABG pCO2 POC ABG pO2 Sodium 147 H Potassium Chloride 110.9 H Carbon Dioxide 19 L BUN Creatinine Glucose 139 H POC Glucose 144 H Calcium 7.3 L Phosphorus 2.3 L Magnesium AST Alkaline Phosphatase Troponin T C-Reactive Protein Total Protein Albumin Triglycerides HDL Cholesterol Lipase 143 H Vitamin B12 TSH Urine WBC (Auto) Urine Chloride Urine Total Protein Vancomycin Trough Crossmatch 10/16/16 10/16/16 10/16/16 05:03 05:41 05:58 WBC 16.5 H RBC 3.36 L Hgb Hct MCV 98 H RDW 13.1 L Plt Count Lymph % (Auto) 8.5 L [place] % (Auto) 7.6 H [place] # 1.3 H Seg Neutrophils % 83.3 H Seg Neuts % (Manual) Lymphocytes % (Manual) Monocytes % (Manual) Basophils % (Manual) Nucleated RBC % Seg Neutrophils # 13.8 H Seg Neutrophils # Man Lymphocytes # (Manual) Monocytes # (Manual) Eosinophils # (Manual) Basophils # (Manual) PT INR APTT Heparin Anti-Xa Level POC ABG pH POC ABG pCO2 30.7 L POC ABG pO2 128 H Sodium Potassium Chloride Carbon Dioxide BUN Creatinine Glucose POC Glucose 131 H Calcium Phosphorus Magnesium AST Alkaline Phosphatase Troponin T C-Reactive Protein Total Protein Albumin Triglycerides HDL Cholesterol Lipase Vitamin B12 TSH Urine WBC (Auto) Urine Chloride Urine Total Protein Vancomycin Trough Crossmatch 10/16/16 10/16/16 10/16/16 06:32 09:27 09:35 WBC RBC Hgb Hct MCV RDW Plt Count Lymph % (Auto) [place] % (Auto) [place] # Seg Neutrophils % Seg Neuts % (Manual) Lymphocytes % (Manual) Monocytes % (Manual) Basophils % (Manual) Nucleated RBC % Seg Neutrophils # Seg Neutrophils # Man Lymphocytes # (Manual) Monocytes # (Manual) Eosinophils # (Manual) Basophils # (Manual) PT INR APTT Heparin Anti-Xa Level POC ABG pH POC ABG pCO2 32.8 L POC ABG pO2 137 H Sodium Potassium Chloride Carbon Dioxide BUN Creatinine Glucose POC Glucose 121 H 150 H Calcium Phosphorus Magnesium AST Alkaline Phosphatase Troponin T C-Reactive Protein Total Protein Albumin Triglycerides HDL Cholesterol Lipase Vitamin B12 TSH Urine WBC (Auto) Urine Chloride Urine Total Protein Vancomycin Trough Crossmatch 10/16/16 10/16/16 10/16/16 10:47 13:27 14:24 WBC RBC Hgb Hct MCV RDW Plt Count Lymph % (Auto) [place] % (Auto) [place] # Seg Neutrophils % Seg Neuts % (Manual) Lymphocytes % (Manual) Monocytes % (Manual) Basophils % (Manual) Nucleated RBC % Seg Neutrophils # Seg Neutrophils # Man Lymphocytes # (Manual) Monocytes # (Manual) Eosinophils # (Manual) Basophils # (Manual) PT INR APTT Heparin Anti-Xa Level POC ABG pH POC ABG pCO2 POC ABG pO2 Sodium Potassium Chloride Carbon Dioxide BUN Creatinine Glucose POC Glucose 184 H 171 H 174 H Calcium Phosphorus Magnesium AST Alkaline Phosphatase Troponin T C-Reactive Protein Total Protein Albumin Triglycerides HDL Cholesterol Lipase Vitamin B12 TSH Urine WBC (Auto) Urine Chloride Urine Total Protein Vancomycin Trough Crossmatch 10/16/16 10/16/16 10/16/16 15:48 16:26 18:17 WBC RBC Hgb Hct MCV RDW Plt Count Lymph % (Auto) [place] % (Auto) [place] # Seg Neutrophils % Seg Neuts % (Manual) Lymphocytes % (Manual) Monocytes % (Manual) Basophils % (Manual) Nucleated RBC % Seg Neutrophils # Seg Neutrophils # Man Lymphocytes # (Manual) Monocytes # (Manual) Eosinophils # (Manual) Basophils # (Manual) PT INR APTT Heparin Anti-Xa Level POC ABG pH POC ABG pCO2 POC ABG pO2 Sodium Potassium Chloride Carbon Dioxide BUN Creatinine Glucose POC Glucose 205 H 204 H 234 H Calcium Phosphorus Magnesium AST Alkaline Phosphatase Troponin T C-Reactive Protein Total Protein Albumin Triglycerides HDL Cholesterol Lipase Vitamin B12 TSH Urine WBC (Auto) Urine Chloride Urine Total Protein Vancomycin Trough Crossmatch 10/16/16 10/16/16 10/16/16 19:40 20:33 21:36 WBC RBC Hgb Hct MCV RDW Plt Count Lymph % (Auto) [place] % (Auto) [place] # Seg Neutrophils % Seg Neuts % (Manual) Lymphocytes % (Manual) Monocytes % (Manual) Basophils % (Manual) Nucleated RBC % Seg Neutrophils # Seg Neutrophils # Man Lymphocytes # (Manual) Monocytes # (Manual) Eosinophils # (Manual) Basophils # (Manual) PT INR APTT Heparin Anti-Xa Level POC ABG pH POC ABG pCO2 POC ABG pO2 Sodium Potassium Chloride Carbon Dioxide BUN Creatinine Glucose POC Glucose 167 H 153 H 158 H Calcium Phosphorus Magnesium AST Alkaline Phosphatase Troponin T C-Reactive Protein Total Protein Albumin Triglycerides HDL Cholesterol Lipase Vitamin B12 TSH Urine WBC (Auto) Urine Chloride Urine Total Protein Vancomycin Trough Crossmatch 10/16/16 10/16/16 10/17/16 22:54 23:48 00:47 WBC RBC Hgb Hct MCV RDW Plt Count Lymph % (Auto) [place] % (Auto) [place] # Seg Neutrophils % Seg Neuts % (Manual) Lymphocytes % (Manual) Monocytes % (Manual) Basophils % (Manual) Nucleated RBC % Seg Neutrophils # Seg Neutrophils # Man Lymphocytes # (Manual) Monocytes # (Manual) Eosinophils # (Manual) Basophils # (Manual) PT INR APTT Heparin Anti-Xa Level POC ABG pH POC ABG pCO2 POC ABG pO2 Sodium Potassium Chloride Carbon Dioxide BUN Creatinine Glucose POC Glucose 180 H 207 H 196 H Calcium Phosphorus Magnesium AST Alkaline Phosphatase Troponin T C-Reactive Protein Total Protein Albumin Triglycerides HDL Cholesterol Lipase Vitamin B12 TSH Urine WBC (Auto) Urine Chloride Urine Total Protein Vancomycin Trough Crossmatch 10/17/16 10/17/16 10/17/16 01:57 02:49 03:50 WBC RBC Hgb Hct MCV RDW Plt Count Lymph % (Auto) [place] % (Auto) [place] # Seg Neutrophils % Seg Neuts % (Manual) Lymphocytes % (Manual) Monocytes % (Manual) Basophils % (Manual) Nucleated RBC % Seg Neutrophils # Seg Neutrophils # Man Lymphocytes # (Manual) Monocytes # (Manual) Eosinophils # (Manual) Basophils # (Manual) PT INR APTT Heparin Anti-Xa Level POC ABG pH POC ABG pCO2 POC ABG pO2 Sodium Potassium Chloride Carbon Dioxide BUN Creatinine Glucose POC Glucose 180 H 151 H 106 H Calcium Phosphorus Magnesium AST Alkaline Phosphatase Troponin T C-Reactive Protein Total Protein Albumin Triglycerides HDL Cholesterol Lipase Vitamin B12 TSH Urine WBC (Auto) Urine Chloride Urine Total Protein Vancomycin Trough Crossmatch 10/17/16 10/17/16 10/17/16 04:59 06:03 06:35 WBC RBC Hgb Hct MCV RDW Plt Count Lymph % (Auto) [place] % (Auto) [place] # Seg Neutrophils % Seg Neuts % (Manual) Lymphocytes % (Manual) Monocytes % (Manual) Basophils % (Manual) Nucleated RBC % Seg Neutrophils # Seg Neutrophils # Man Lymphocytes # (Manual) Monocytes # (Manual) Eosinophils # (Manual) Basophils # (Manual) PT INR APTT Heparin Anti-Xa Level POC ABG pH 7.453 H POC ABG pCO2 30.1 L POC ABG pO2 111 H Sodium Potassium Chloride Carbon Dioxide BUN Creatinine Glucose POC Glucose 145 H 157 H Calcium Phosphorus Magnesium AST Alkaline Phosphatase Troponin T C-Reactive Protein Total Protein Albumin Triglycerides HDL Cholesterol Lipase Vitamin B12 TSH Urine WBC (Auto) Urine Chloride Urine Total Protein Vancomycin Trough Crossmatch 10/17/16 10/17/16 10/17/16 07:08 07:11 08:01 WBC RBC Hgb Hct MCV RDW Plt Count Lymph % (Auto) [place] % (Auto) [place] # Seg Neutrophils % Seg Neuts % (Manual) Lymphocytes % (Manual) Monocytes % (Manual) Basophils % (Manual) Nucleated RBC % Seg Neutrophils # Seg Neutrophils # Man Lymphocytes # (Manual) Monocytes # (Manual) Eosinophils # (Manual) Basophils # (Manual) PT INR APTT Heparin Anti-Xa Level POC ABG pH POC ABG pCO2 POC ABG pO2 Sodium 147 H Potassium Chloride 113.8 H Carbon Dioxide 19 L BUN Creatinine Glucose 136 H POC Glucose 136 H 152 H Calcium 7.7 L Phosphorus Magnesium AST Alkaline Phosphatase Troponin T C-Reactive Protein Total Protein Albumin Triglycerides HDL Cholesterol Lipase Vitamin B12 TSH Urine WBC (Auto) Urine Chloride Urine Total Protein Vancomycin Trough Crossmatch 10/17/16 10/17/16 10/17/16 08:23 09:17 09:53 WBC 18.1 H RBC 3.01 L Hgb 9.7 L Hct 29.4 L MCV 98 H RDW Plt Count 116 L Lymph % (Auto) [place] % (Auto) [place] # Seg Neutrophils % Seg Neuts % (Manual) 77.0 H Lymphocytes % (Manual) 4.0 L Monocytes % (Manual) 12.0 H Basophils % (Manual) Nucleated RBC % Seg Neutrophils # Seg Neutrophils # Man 13.9 H Lymphocytes # (Manual) 0.7 L Monocytes # (Manual) 2.2 H Eosinophils # (Manual) Basophils # (Manual) PT INR APTT Heparin Anti-Xa Level POC ABG pH POC ABG pCO2 POC ABG pO2 Sodium Potassium Chloride Carbon Dioxide BUN Creatinine Glucose POC Glucose 148 H 137 H Calcium Phosphorus Magnesium AST Alkaline Phosphatase Troponin T C-Reactive Protein Total Protein Albumin Triglycerides HDL Cholesterol Lipase Vitamin B12 TSH Urine WBC (Auto) Urine Chloride Urine Total Protein Vancomycin Trough Crossmatch 10/17/16 10/17/16 10/17/16 11:43 16:07 17:42 WBC RBC Hgb Hct MCV RDW Plt Count Lymph % (Auto) [place] % (Auto) [place] # Seg Neutrophils % Seg Neuts % (Manual) Lymphocytes % (Manual) Monocytes % (Manual) Basophils % (Manual) Nucleated RBC % Seg Neutrophils # Seg Neutrophils # Man Lymphocytes # (Manual) Monocytes # (Manual) Eosinophils # (Manual) Basophils # (Manual) PT 16.4 H INR 1.33 H APTT 38.8 H Heparin Anti-Xa Level POC ABG pH POC ABG pCO2 POC ABG pO2 Sodium Potassium Chloride Carbon Dioxide BUN Creatinine Glucose POC Glucose 179 H 153 H Calcium Phosphorus Magnesium AST Alkaline Phosphatase Troponin T C-Reactive Protein Total Protein Albumin Triglycerides HDL Cholesterol Lipase Vitamin B12 TSH Urine WBC (Auto) Urine Chloride Urine Total Protein Vancomycin Trough Crossmatch 10/17/16 10/18/16 10/18/16 22:54 04:37 05:39 WBC RBC Hgb Hct MCV RDW Plt Count Lymph % (Auto) [place] % (Auto) [place] # Seg Neutrophils % Seg Neuts % (Manual) Lymphocytes % (Manual) Monocytes % (Manual) Basophils % (Manual) Nucleated RBC % Seg Neutrophils # Seg Neutrophils # Man Lymphocytes # (Manual) Monocytes # (Manual) Eosinophils # (Manual) Basophils # (Manual) PT INR APTT Heparin Anti-Xa Level 0.27 L POC ABG pH 7.454 H POC ABG pCO2 30.8 L POC ABG pO2 115 H Sodium Potassium Chloride Carbon Dioxide BUN Creatinine Glucose POC Glucose 69 L Calcium Phosphorus Magnesium AST Alkaline Phosphatase Troponin T C-Reactive Protein Total Protein Albumin Triglycerides HDL Cholesterol Lipase Vitamin B12 TSH Urine WBC (Auto) Urine Chloride Urine Total Protein Vancomycin Trough Crossmatch 10/18/16 10/18/16 10/18/16 06:46 06:46 06:46 WBC 20.5 H RBC 2.62 L Hgb 8.4 L Hct 26.0 L MCV 100 H RDW Plt Count Lymph % (Auto) [place] % (Auto) [place] # Seg Neutrophils % Seg Neuts % (Manual) 75.0 H Lymphocytes % (Manual) 9.0 L Monocytes % (Manual) 14.0 H Basophils % (Manual) Nucleated RBC % Seg Neutrophils # Seg Neutrophils # Man 15.4 H Lymphocytes # (Manual) Monocytes # (Manual) 2.9 H Eosinophils # (Manual) Basophils # (Manual) PT INR APTT Heparin Anti-Xa Level POC ABG pH POC ABG pCO2 POC ABG pO2 Sodium Potassium Chloride 110.6 H Carbon Dioxide BUN Creatinine 1.3 H Glucose 153 H POC Glucose Calcium 8.0 L Phosphorus Magnesium 1.6 L AST Alkaline Phosphatase Troponin T C-Reactive Protein Total Protein Albumin Triglycerides HDL Cholesterol Lipase Vitamin B12 TSH Urine WBC (Auto) Urine Chloride Urine Total Protein Vancomycin Trough Crossmatch 10/18/16 10/18/16 10/18/16 07:30 11:37 17:51 WBC RBC Hgb Hct MCV RDW Plt Count Lymph % (Auto) [place] % (Auto) [place] # Seg Neutrophils % Seg Neuts % (Manual) Lymphocytes % (Manual) Monocytes % (Manual) Basophils % (Manual) Nucleated RBC % Seg Neutrophils # Seg Neutrophils # Man Lymphocytes # (Manual) Monocytes # (Manual) Eosinophils # (Manual) Basophils # (Manual) PT INR APTT Heparin Anti-Xa Level POC ABG pH POC ABG pCO2 POC ABG pO2 Sodium Potassium Chloride Carbon Dioxide BUN Creatinine Glucose POC Glucose 162 H 156 H 164 H Calcium Phosphorus Magnesium AST Alkaline Phosphatase Troponin T C-Reactive Protein Total Protein Albumin Triglycerides HDL Cholesterol Lipase Vitamin B12 TSH Urine WBC (Auto) Urine Chloride Urine Total Protein Vancomycin Trough Crossmatch 10/18/16 10/19/16 10/19/16 23:44 03:59 05:13 WBC 18.2 H RBC 2.76 L Hgb 9.0 L Hct 27.7 L MCV 100 H RDW Plt Count Lymph % (Auto) [place] % (Auto) [place] # Seg Neutrophils % Seg Neuts % (Manual) 76.0 H Lymphocytes % (Manual) 10.0 L Monocytes % (Manual) Basophils % (Manual) Nucleated RBC % Seg Neutrophils # Seg Neutrophils # Man 13.8 H Lymphocytes # (Manual) Monocytes # (Manual) Eosinophils # (Manual) Basophils # (Manual) PT INR APTT Heparin Anti-Xa Level POC ABG pH POC ABG pCO2 32.2 L POC ABG pO2 128 H Sodium Potassium Chloride Carbon Dioxide BUN Creatinine Glucose POC Glucose 278 H Calcium Phosphorus Magnesium AST Alkaline Phosphatase Troponin T C-Reactive Protein Total Protein Albumin Triglycerides HDL Cholesterol Lipase Vitamin B12 TSH Urine WBC (Auto) Urine Chloride Urine Total Protein Vancomycin Trough Crossmatch 10/19/16 10/19/16 10/19/16 06:01 06:30 12:20 WBC RBC Hgb Hct MCV RDW Plt Count Lymph % (Auto) [place] % (Auto) [place] # Seg Neutrophils % Seg Neuts % (Manual) Lymphocytes % (Manual) Monocytes % (Manual) Basophils % (Manual) Nucleated RBC % Seg Neutrophils # Seg Neutrophils # Man Lymphocytes # (Manual) Monocytes # (Manual) Eosinophils # (Manual) Basophils # (Manual) PT INR APTT Heparin Anti-Xa Level POC ABG pH POC ABG pCO2 POC ABG pO2 Sodium Potassium Chloride Carbon Dioxide 18 L BUN Creatinine 1.3 H Glucose 262 H POC Glucose 261 H 349 H Calcium 7.7 L Phosphorus 4.8 H D Magnesium AST Alkaline Phosphatase Troponin T C-Reactive Protein Total Protein Albumin Triglycerides HDL Cholesterol Lipase Vitamin B12 TSH Urine WBC (Auto) Urine Chloride Urine Total Protein Vancomycin Trough Crossmatch 10/19/16 10/20/16 10/20/16 16:48 00:17 05:20 WBC 22.5 H RBC 2.80 L Hgb 8.9 L Hct 28.3 L MCV 101 H RDW Plt Count Lymph % (Auto) [place] % (Auto) [place] # Seg Neutrophils % Seg Neuts % (Manual) Lymphocytes % (Manual) 10.0 L Monocytes % (Manual) Basophils % (Manual) Nucleated RBC % Seg Neutrophils # Seg Neutrophils # Man 13.3 H Lymphocytes # (Manual) Monocytes # (Manual) 1.1 H Eosinophils # (Manual) 0.7 H Basophils # (Manual) PT INR APTT Heparin Anti-Xa Level POC ABG pH POC ABG pCO2 POC ABG pO2 Sodium Potassium Chloride Carbon Dioxide BUN Creatinine Glucose POC Glucose 248 H 346 H Calcium Phosphorus Magnesium AST Alkaline Phosphatase Troponin T C-Reactive Protein Total Protein Albumin Triglycerides HDL Cholesterol Lipase Vitamin B12 TSH Urine WBC (Auto) Urine Chloride Urine Total Protein Vancomycin Trough Crossmatch 10/20/16 10/20/16 10/20/16 05:20 05:20 06:05 WBC RBC Hgb Hct MCV RDW Plt Count Lymph % (Auto) [place] % (Auto) [place] # Seg Neutrophils % Seg Neuts % (Manual) Lymphocytes % (Manual) Monocytes % (Manual) Basophils % (Manual) Nucleated RBC % Seg Neutrophils # Seg Neutrophils # Man Lymphocytes # (Manual) Monocytes # (Manual) Eosinophils # (Manual) Basophils # (Manual) PT INR APTT Heparin Anti-Xa Level 0.20 L POC ABG pH POC ABG pCO2 POC ABG pO2 Sodium Potassium Chloride Carbon Dioxide BUN 20 H Creatinine Glucose 374 H POC Glucose 337 H Calcium 8.3 L Phosphorus Magnesium AST Alkaline Phosphatase Troponin T C-Reactive Protein Total Protein Albumin Triglycerides HDL Cholesterol Lipase Vitamin B12 TSH Urine WBC (Auto) Urine Chloride Urine Total Protein Vancomycin Trough Crossmatch 10/20/16 10/20/16 10/20/16 11:49 13:59 17:56 WBC RBC Hgb Hct MCV RDW Plt Count Lymph % (Auto) [place] % (Auto) [place] # Seg Neutrophils % Seg Neuts % (Manual) Lymphocytes % (Manual) Monocytes % (Manual) Basophils % (Manual) Nucleated RBC % Seg Neutrophils # Seg Neutrophils # Man Lymphocytes # (Manual) Monocytes # (Manual) Eosinophils # (Manual) Basophils # (Manual) PT INR APTT Heparin Anti-Xa Level 2.00 H POC ABG pH POC ABG pCO2 POC ABG pO2 Sodium Potassium Chloride Carbon Dioxide BUN Creatinine Glucose POC Glucose 305 H 362 H Calcium Phosphorus Magnesium AST Alkaline Phosphatase Troponin T C-Reactive Protein Total Protein Albumin Triglycerides HDL Cholesterol Lipase Vitamin B12 TSH Urine WBC (Auto) Urine Chloride Urine Total Protein Vancomycin Trough Crossmatch 10/20/16 10/21/16 10/21/16 23:52 05:00 05:49 WBC 22.9 H RBC 2.49 L Hgb 7.7 L Hct 25.6 L MCV 103 H RDW Plt Count Lymph % (Auto) [place] % (Auto) [place] # Seg Neutrophils % Seg Neuts % (Manual) 94.0 H Lymphocytes % (Manual) 1.0 L Monocytes % (Manual) Basophils % (Manual) Nucleated RBC % Seg Neutrophils # Seg Neutrophils # Man 21.5 H Lymphocytes # (Manual) 0.2 L Monocytes # (Manual) 1.1 H Eosinophils # (Manual) Basophils # (Manual) PT INR APTT Heparin Anti-Xa Level POC ABG pH POC ABG pCO2 POC ABG pO2 Sodium Potassium Chloride Carbon Dioxide BUN Creatinine Glucose POC Glucose 252 H 180 H Calcium Phosphorus Magnesium AST Alkaline Phosphatase Troponin T C-Reactive Protein Total Protein Albumin Triglycerides HDL Cholesterol Lipase Vitamin B12 TSH Urine WBC (Auto) Urine Chloride Urine Total Protein Vancomycin Trough Crossmatch 10/21/16 10/21/16 10/21/16 11:47 11:49 14:10 WBC RBC Hgb Hct MCV RDW Plt Count Lymph % (Auto) [place] % (Auto) [place] # Seg Neutrophils % Seg Neuts % (Manual) Lymphocytes % (Manual) Monocytes % (Manual) Basophils % (Manual) Nucleated RBC % Seg Neutrophils # Seg Neutrophils # Man Lymphocytes # (Manual) Monocytes # (Manual) Eosinophils # (Manual) Basophils # (Manual) PT INR APTT Heparin Anti-Xa Level POC ABG pH POC ABG pCO2 POC ABG pO2 Sodium Potassium Chloride Carbon Dioxide BUN Creatinine Glucose POC Glucose 50 L 56 L 140 H Calcium Phosphorus Magnesium AST Alkaline Phosphatase Troponin T C-Reactive Protein Total Protein Albumin Triglycerides HDL Cholesterol Lipase Vitamin B12 TSH Urine WBC (Auto) Urine Chloride Urine Total Protein Vancomycin Trough Crossmatch 10/21/16 10/21/16 10/22/16 18:24 Unknown 00:07 WBC RBC Hgb Hct MCV RDW Plt Count Lymph % (Auto) [place] % (Auto) [place] # Seg Neutrophils % Seg Neuts % (Manual) Lymphocytes % (Manual) Monocytes % (Manual) Basophils % (Manual) Nucleated RBC % Seg Neutrophils # Seg Neutrophils # Man Lymphocytes # (Manual) Monocytes # (Manual) Eosinophils # (Manual) Basophils # (Manual) PT INR APTT Heparin Anti-Xa Level POC ABG pH POC ABG pCO2 POC ABG pO2 Sodium 150 H Potassium 3.1 L Chloride 112.4 H Carbon Dioxide BUN 25 H Creatinine 1.4 H Glucose POC Glucose 175 H 218 H Calcium 8.0 L Phosphorus Magnesium AST Alkaline Phosphatase Troponin T C-Reactive Protein Total Protein Albumin Triglycerides HDL Cholesterol Lipase Vitamin B12 TSH Urine WBC (Auto) Urine Chloride Urine Total Protein Vancomycin Trough Crossmatch 10/22/16 10/22/16 10/22/16 04:20 04:20 10:25 WBC 20.8 H RBC 2.37 L Hgb 7.5 L Hct 23.9 L MCV 101 H RDW Plt Count Lymph % (Auto) [place] % (Auto) [place] # Seg Neutrophils % Seg Neuts % (Manual) 89.0 H Lymphocytes % (Manual) 7.0 L Monocytes % (Manual) Basophils % (Manual) Nucleated RBC % Seg Neutrophils # Seg Neutrophils # Man 18.5 H Lymphocytes # (Manual) Monocytes # (Manual) Eosinophils # (Manual) Basophils # (Manual) 0.2 H PT INR APTT Heparin Anti-Xa Level POC ABG pH POC ABG pCO2 POC ABG pO2 Sodium 148 H Potassium 2.9 L* Chloride 109.4 H Carbon Dioxide BUN 26 H Creatinine Glucose 140 H POC Glucose Calcium 7.5 L Phosphorus Magnesium AST Alkaline Phosphatase Troponin T C-Reactive Protein Total Protein Albumin Triglycerides HDL Cholesterol Lipase Vitamin B12 976.8 H TSH Urine WBC (Auto) Urine Chloride Urine Total Protein Vancomycin Trough Crossmatch 10/22/16 10/22/16 10/22/16 10:25 14:50 18:16 WBC RBC Hgb Hct MCV RDW Plt Count Lymph % (Auto) [place] % (Auto) [place] # Seg Neutrophils % Seg Neuts % (Manual) Lymphocytes % (Manual) Monocytes % (Manual) Basophils % (Manual) Nucleated RBC % Seg Neutrophils # Seg Neutrophils # Man Lymphocytes # (Manual) Monocytes # (Manual) Eosinophils # (Manual) Basophils # (Manual) PT INR APTT Heparin Anti-Xa Level POC ABG pH POC ABG pCO2 POC ABG pO2 Sodium Potassium Chloride Carbon Dioxide BUN Creatinine Glucose POC Glucose 193 H Calcium Phosphorus Magnesium AST Alkaline Phosphatase Troponin T C-Reactive Protein Total Protein Albumin Triglycerides HDL Cholesterol Lipase Vitamin B12 TSH 0.143 L 0.162 L Urine WBC (Auto) Urine Chloride Urine Total Protein Vancomycin Trough Crossmatch 10/22/16 10/22/16 10/22/16 20:00 20:00 20:00 WBC 24.1 H RBC 2.58 L Hgb 8.2 L Hct 26.4 L MCV 102 H RDW Plt Count Lymph % (Auto) [place] % (Auto) [place] # Seg Neutrophils % Seg Neuts % (Manual) 74.0 H Lymphocytes % (Manual) 7.0 L Monocytes % (Manual) Basophils % (Manual) Nucleated RBC % Seg Neutrophils # Seg Neutrophils # Man 17.8 H Lymphocytes # (Manual) Monocytes # (Manual) Eosinophils # (Manual) Basophils # (Manual) PT INR APTT Heparin Anti-Xa Level 1.92 H POC ABG pH POC ABG pCO2 POC ABG pO2 Sodium Potassium Chloride Carbon Dioxide BUN Creatinine Glucose POC Glucose Calcium Phosphorus Magnesium AST Alkaline Phosphatase Troponin T C-Reactive Protein Total Protein Albumin Triglycerides HDL Cholesterol Lipase Vitamin B12 TSH Urine WBC (Auto) Urine Chloride Urine Total Protein Vancomycin Trough Crossmatch See Detail 10/23/16 10/23/16 10/23/16 00:21 06:09 12:07 WBC RBC Hgb Hct MCV RDW Plt Count Lymph % (Auto) [place] % (Auto) [place] # Seg Neutrophils % Seg Neuts % (Manual) Lymphocytes % (Manual) Monocytes % (Manual) Basophils % (Manual) Nucleated RBC % Seg Neutrophils # Seg Neutrophils # Man Lymphocytes # (Manual) Monocytes # (Manual) Eosinophils # (Manual) Basophils # (Manual) PT INR APTT Heparin Anti-Xa Level POC ABG pH POC ABG pCO2 POC ABG pO2 Sodium Potassium Chloride Carbon Dioxide BUN Creatinine Glucose POC Glucose 283 H 241 H 340 H Calcium Phosphorus Magnesium AST Alkaline Phosphatase Troponin T C-Reactive Protein Total Protein Albumin Triglycerides HDL Cholesterol Lipase Vitamin B12 TSH Urine WBC (Auto) Urine Chloride Urine Total Protein Vancomycin Trough Crossmatch 10/23/16 10/23/16 10/23/16 14:01 16:00 17:59 WBC RBC Hgb Hct MCV RDW Plt Count Lymph % (Auto) [place] % (Auto) [place] # Seg Neutrophils % Seg Neuts % (Manual) Lymphocytes % (Manual) Monocytes % (Manual) Basophils % (Manual) Nucleated RBC % Seg Neutrophils # Seg Neutrophils # Man Lymphocytes # (Manual) Monocytes # (Manual) Eosinophils # (Manual) Basophils # (Manual) PT INR APTT Heparin Anti-Xa Level 0.19 L POC ABG pH POC ABG pCO2 32.4 L POC ABG pO2 Sodium Potassium Chloride Carbon Dioxide BUN Creatinine Glucose POC Glucose 245 H Calcium Phosphorus Magnesium AST Alkaline Phosphatase Troponin T C-Reactive Protein Total Protein Albumin Triglycerides HDL Cholesterol Lipase Vitamin B12 TSH Urine WBC (Auto) Urine Chloride Urine Total Protein Vancomycin Trough Crossmatch 10/23/16 10/23/16 10/23/16 22:55 Unknown Unknown WBC 22.6 H RBC 3.26 L Hgb Hct MCV RDW 17.1 H Plt Count Lymph % (Auto) [place] % (Auto) [place] # Seg Neutrophils % Seg Neuts % (Manual) Lymphocytes % (Manual) 11.0 L Monocytes % (Manual) Basophils % (Manual) Nucleated RBC % Seg Neutrophils # Seg Neutrophils # Man 14.0 H Lymphocytes # (Manual) Monocytes # (Manual) Eosinophils # (Manual) Basophils # (Manual) PT INR APTT Heparin Anti-Xa Level 0.17 L 0.15 L POC ABG pH POC ABG pCO2 POC ABG pO2 Sodium Potassium Chloride Carbon Dioxide BUN Creatinine Glucose POC Glucose Calcium Phosphorus Magnesium AST Alkaline Phosphatase Troponin T C-Reactive Protein Total Protein Albumin Triglycerides HDL Cholesterol Lipase Vitamin B12 TSH Urine WBC (Auto) Urine Chloride Urine Total Protein Vancomycin Trough Crossmatch 10/23/16 10/24/16 10/24/16 Unknown 00:05 05:30 WBC RBC Hgb Hct MCV RDW Plt Count Lymph % (Auto) [place] % (Auto) [place] # Seg Neutrophils % Seg Neuts % (Manual) Lymphocytes % (Manual) Monocytes % (Manual) Basophils % (Manual) Nucleated RBC % Seg Neutrophils # Seg Neutrophils # Man Lymphocytes # (Manual) Monocytes # (Manual) Eosinophils # (Manual) Basophils # (Manual) PT INR APTT Heparin Anti-Xa Level 0.13 L POC ABG pH POC ABG pCO2 POC ABG pO2 Sodium Potassium Chloride 111.2 H Carbon Dioxide 20 L BUN 25 H Creatinine Glucose 227 H POC Glucose 118 H Calcium 7.1 L Phosphorus Magnesium AST Alkaline Phosphatase Troponin T C-Reactive Protein Total Protein Albumin Triglycerides HDL Cholesterol Lipase Vitamin B12 TSH Urine WBC (Auto) Urine Chloride Urine Total Protein Vancomycin Trough Crossmatch 10/24/16 10/24/16 10/24/16 11:00 11:00 12:06 WBC 17.6 H RBC 2.92 L Hgb 9.2 L Hct 28.3 L MCV RDW 16.9 H Plt Count Lymph % (Auto) [place] % (Auto) [place] # Seg Neutrophils % Seg Neuts % (Manual) Lymphocytes % (Manual) Monocytes % (Manual) Basophils % (Manual) Nucleated RBC % Seg Neutrophils # Seg Neutrophils # Man Lymphocytes # (Manual) Monocytes # (Manual) Eosinophils # (Manual) Basophils # (Manual) PT INR APTT Heparin Anti-Xa Level 0.27 L POC ABG pH POC ABG pCO2 POC ABG pO2 Sodium Potassium Chloride Carbon Dioxide BUN Creatinine Glucose POC Glucose 166 H Calcium Phosphorus Magnesium AST Alkaline Phosphatase Troponin T C-Reactive Protein Total Protein Albumin Triglycerides HDL Cholesterol Lipase Vitamin B12 TSH Urine WBC (Auto) Urine Chloride Urine Total Protein Vancomycin Trough Crossmatch 10/24/16 10/25/16 10/25/16 12:27 00:49 03:30 WBC RBC Hgb 8.8 L Hct 28.1 L MCV RDW Plt Count Lymph % (Auto) [place] % (Auto) [place] # Seg Neutrophils % Seg Neuts % (Manual) Lymphocytes % (Manual) Monocytes % (Manual) Basophils % (Manual) Nucleated RBC % Seg Neutrophils # Seg Neutrophils # Man Lymphocytes # (Manual) Monocytes # (Manual) Eosinophils # (Manual) Basophils # (Manual) PT INR APTT Heparin Anti-Xa Level POC ABG pH POC ABG pCO2 33.9 L POC ABG pO2 Sodium Potassium Chloride Carbon Dioxide BUN Creatinine Glucose POC Glucose 121 H Calcium Phosphorus Magnesium AST Alkaline Phosphatase Troponin T C-Reactive Protein Total Protein Albumin Triglycerides HDL Cholesterol Lipase Vitamin B12 TSH Urine WBC (Auto) Urine Chloride Urine Total Protein Vancomycin Trough Crossmatch 10/25/16 10/25/16 10/25/16 09:49 12:10 19:25 WBC 21.1 H RBC 3.02 L Hgb 9.3 L Hct 28.9 L MCV RDW 16.3 H Plt Count Lymph % (Auto) [place] % (Auto) [place] # Seg Neutrophils % Seg Neuts % (Manual) 81.0 H Lymphocytes % (Manual) 9.0 L Monocytes % (Manual) Basophils % (Manual) Nucleated RBC % Seg Neutrophils # Seg Neutrophils # Man 17.1 H Lymphocytes # (Manual) Monocytes # (Manual) Eosinophils # (Manual) Basophils # (Manual) PT INR APTT Heparin Anti-Xa Level POC ABG pH POC ABG pCO2 POC ABG pO2 Sodium Potassium Chloride Carbon Dioxide BUN Creatinine Glucose POC Glucose 158 H 151 H Calcium Phosphorus Magnesium AST Alkaline Phosphatase Troponin T C-Reactive Protein Total Protein Albumin Triglycerides HDL Cholesterol Lipase Vitamin B12 TSH Urine WBC (Auto) Urine Chloride Urine Total Protein Vancomycin Trough Crossmatch 10/26/16 10/26/16 10/26/16 00:20 01:09 05:02 WBC 22.2 H RBC 2.89 L Hgb 8.7 L Hct 27.8 L MCV RDW 16.4 H Plt Count Lymph % (Auto) [place] % (Auto) [place] # Seg Neutrophils % Seg Neuts % (Manual) Lymphocytes % (Manual) Monocytes % (Manual) Basophils % (Manual) Nucleated RBC % Seg Neutrophils # Seg Neutrophils # Man Lymphocytes # (Manual) Monocytes # (Manual) Eosinophils # (Manual) Basophils # (Manual) PT INR APTT Heparin Anti-Xa Level POC ABG pH POC ABG pCO2 POC ABG pO2 Sodium Potassium Chloride Carbon Dioxide BUN Creatinine Glucose POC Glucose 44 L 112 H Calcium Phosphorus Magnesium AST Alkaline Phosphatase Troponin T C-Reactive Protein Total Protein Albumin Triglycerides HDL Cholesterol Lipase Vitamin B12 TSH Urine WBC (Auto) Urine Chloride Urine Total Protein Vancomycin Trough Crossmatch 10/26/16 10/26/16 10/26/16 05:02 12:11 12:14 WBC RBC Hgb Hct MCV RDW Plt Count Lymph % (Auto) [place] % (Auto) [place] # Seg Neutrophils % Seg Neuts % (Manual) Lymphocytes % (Manual) Monocytes % (Manual) Basophils % (Manual) Nucleated RBC % Seg Neutrophils # Seg Neutrophils # Man Lymphocytes # (Manual) Monocytes # (Manual) Eosinophils # (Manual) Basophils # (Manual) PT INR APTT Heparin Anti-Xa Level POC ABG pH POC ABG pCO2 32.0 L POC ABG pO2 33 L Sodium Potassium 3.2 L D Chloride Carbon Dioxide 20 L BUN 24 H Creatinine Glucose 104 H POC Glucose 194 H Calcium 7.7 L Phosphorus Magnesium AST Alkaline Phosphatase Troponin T C-Reactive Protein Total Protein Albumin Triglycerides HDL Cholesterol Lipase Vitamin B12 TSH Urine WBC (Auto) Urine Chloride Urine Total Protein Vancomycin Trough Crossmatch 10/26/16 10/26/16 10/27/16 15:28 17:23 00:04 WBC RBC Hgb Hct MCV RDW Plt Count Lymph % (Auto) [place] % (Auto) [place] # Seg Neutrophils % Seg Neuts % (Manual) Lymphocytes % (Manual) Monocytes % (Manual) Basophils % (Manual) Nucleated RBC % Seg Neutrophils # Seg Neutrophils # Man Lymphocytes # (Manual) Monocytes # (Manual) Eosinophils # (Manual) Basophils # (Manual) PT INR APTT Heparin Anti-Xa Level POC ABG pH POC ABG pCO2 33.7 L POC ABG pO2 Sodium Potassium Chloride Carbon Dioxide BUN Creatinine Glucose POC Glucose 181 H 230 H Calcium Phosphorus Magnesium AST Alkaline Phosphatase Troponin T C-Reactive Protein Total Protein Albumin Triglycerides HDL Cholesterol Lipase Vitamin B12 TSH Urine WBC (Auto) Urine Chloride Urine Total Protein Vancomycin Trough Crossmatch 10/27/16 10/27/16 10/27/16 05:15 05:15 05:38 WBC 25.5 H RBC 3.07 L Hgb 9.4 L Hct 30.1 L MCV 98 H RDW 16.4 H Plt Count 527 H Lymph % (Auto) [place] % (Auto) [place] # Seg Neutrophils % Seg Neuts % (Manual) Lymphocytes % (Manual) Monocytes % (Manual) Basophils % (Manual) Nucleated RBC % Seg Neutrophils # Seg Neutrophils # Man Lymphocytes # (Manual) Monocytes # (Manual) Eosinophils # (Manual) Basophils # (Manual) PT INR APTT Heparin Anti-Xa Level POC ABG pH POC ABG pCO2 POC ABG pO2 Sodium Potassium Chloride Carbon Dioxide 19 L BUN 23 H Creatinine Glucose 160 H POC Glucose 168 H Calcium 8.0 L Phosphorus Magnesium AST Alkaline Phosphatase Troponin T C-Reactive Protein Total Protein Albumin Triglycerides HDL Cholesterol Lipase Vitamin B12 TSH Urine WBC (Auto) Urine Chloride Urine Total Protein Vancomycin Trough Crossmatch 10/27/16 10/27/16 10/27/16 11:59 18:35 23:48 WBC RBC Hgb Hct MCV RDW Plt Count Lymph % (Auto) [place] % (Auto) [place] # Seg Neutrophils % Seg Neuts % (Manual) Lymphocytes % (Manual) Monocytes % (Manual) Basophils % (Manual) Nucleated RBC % Seg Neutrophils # Seg Neutrophils # Man Lymphocytes # (Manual) Monocytes # (Manual) Eosinophils # (Manual) Basophils # (Manual) PT INR APTT Heparin Anti-Xa Level POC ABG pH POC ABG pCO2 POC ABG pO2 Sodium Potassium Chloride Carbon Dioxide BUN Creatinine Glucose POC Glucose 197 H 318 H 316 H Calcium Phosphorus Magnesium AST Alkaline Phosphatase Troponin T C-Reactive Protein Total Protein Albumin Triglycerides HDL Cholesterol Lipase Vitamin B12 TSH Urine WBC (Auto) Urine Chloride Urine Total Protein Vancomycin Trough Crossmatch 10/28/16 10/28/16 10/28/16 03:13 04:10 04:10 WBC 18.8 H RBC 2.64 L Hgb 8.1 L Hct 26.1 L MCV 99 H RDW 16.2 H Plt Count 544 H Lymph % (Auto) [place] % (Auto) [place] # Seg Neutrophils % Seg Neuts % (Manual) Lymphocytes % (Manual) Monocytes % (Manual) Basophils % (Manual) Nucleated RBC % Seg Neutrophils # Seg Neutrophils # Man Lymphocytes # (Manual) Monocytes # (Manual) Eosinophils # (Manual) Basophils # (Manual) PT INR APTT Heparin Anti-Xa Level POC ABG pH POC ABG pCO2 POC ABG pO2 Sodium Potassium Chloride Carbon Dioxide 21 L BUN 24 H Creatinine Glucose 302 H POC Glucose 304 H Calcium 7.7 L Phosphorus Magnesium AST Alkaline Phosphatase Troponin T C-Reactive Protein Total Protein Albumin Triglycerides HDL Cholesterol Lipase Vitamin B12 TSH Urine WBC (Auto) Urine Chloride Urine Total Protein Vancomycin Trough Crossmatch 10/28/16 10/28/16 10/28/16 04:10 12:36 18:27 WBC RBC Hgb Hct MCV RDW Plt Count Lymph % (Auto) [place] % (Auto) [place] # Seg Neutrophils % Seg Neuts % (Manual) Lymphocytes % (Manual) Monocytes % (Manual) Basophils % (Manual) Nucleated RBC % Seg Neutrophils # Seg Neutrophils # Man Lymphocytes # (Manual) Monocytes # (Manual) Eosinophils # (Manual) Basophils # (Manual) PT INR APTT Heparin Anti-Xa Level 0.20 L POC ABG pH POC ABG pCO2 POC ABG pO2 Sodium Potassium Chloride Carbon Dioxide BUN Creatinine Glucose POC Glucose 205 H 339 H Calcium Phosphorus Magnesium AST Alkaline Phosphatase Troponin T C-Reactive Protein Total Protein Albumin Triglycerides HDL Cholesterol Lipase Vitamin B12 TSH Urine WBC (Auto) Urine Chloride Urine Total Protein Vancomycin Trough Crossmatch 10/29/16 10/29/16 10/29/16 01:05 06:19 09:30 WBC 20.3 H RBC 2.80 L Hgb 8.5 L Hct 26.7 L MCV RDW 15.4 H Plt Count 571 H Lymph % (Auto) [place] % (Auto) [place] # Seg Neutrophils % Seg Neuts % (Manual) 75.0 H Lymphocytes % (Manual) 4.0 L Monocytes % (Manual) Basophils % (Manual) Nucleated RBC % Seg Neutrophils # Seg Neutrophils # Man 15.2 H Lymphocytes # (Manual) 0.8 L Monocytes # (Manual) Eosinophils # (Manual) Basophils # (Manual) PT INR APTT Heparin Anti-Xa Level POC ABG pH POC ABG pCO2 POC ABG pO2 Sodium Potassium Chloride Carbon Dioxide BUN Creatinine Glucose POC Glucose 275 H 179 H Calcium Phosphorus Magnesium AST Alkaline Phosphatase Troponin T C-Reactive Protein Total Protein Albumin Triglycerides HDL Cholesterol Lipase Vitamin B12 TSH Urine WBC (Auto) Urine Chloride Urine Total Protein Vancomycin Trough Crossmatch 10/29/16 10/29/16 10/29/16 11:46 15:18 17:55 WBC RBC Hgb Hct MCV RDW Plt Count Lymph % (Auto) [place] % (Auto) [place] # Seg Neutrophils % Seg Neuts % (Manual) Lymphocytes % (Manual) Monocytes % (Manual) Basophils % (Manual) Nucleated RBC % Seg Neutrophils # Seg Neutrophils # Man Lymphocytes # (Manual) Monocytes # (Manual) Eosinophils # (Manual) Basophils # (Manual) PT INR APTT Heparin Anti-Xa Level 1.15 H POC ABG pH POC ABG pCO2 POC ABG pO2 Sodium Potassium Chloride Carbon Dioxide BUN Creatinine Glucose POC Glucose 122 H 255 H Calcium Phosphorus Magnesium AST Alkaline Phosphatase Troponin T C-Reactive Protein Total Protein Albumin Triglycerides HDL Cholesterol Lipase Vitamin B12 TSH Urine WBC (Auto) Urine Chloride Urine Total Protein Vancomycin Trough Crossmatch 10/30/16 10/30/16 10/30/16 00:10 05:30 05:30 WBC 19.8 H RBC 2.51 L Hgb 7.7 L Hct 24.1 L MCV RDW 15.5 H Plt Count 534 H Lymph % (Auto) [place] % (Auto) [place] # Seg Neutrophils % Seg Neuts % (Manual) Lymphocytes % (Manual) Monocytes % (Manual) Basophils % (Manual) Nucleated RBC % Seg Neutrophils # Seg Neutrophils # Man Lymphocytes # (Manual) Monocytes # (Manual) Eosinophils # (Manual) Basophils # (Manual) PT INR APTT Heparin Anti-Xa Level POC ABG pH POC ABG pCO2 POC ABG pO2 Sodium Potassium Chloride Carbon Dioxide BUN Creatinine Glucose 211 H POC Glucose 202 H Calcium 7.4 L Phosphorus Magnesium AST Alkaline Phosphatase Troponin T C-Reactive Protein Total Protein Albumin Triglycerides HDL Cholesterol Lipase Vitamin B12 TSH Urine WBC (Auto) Urine Chloride Urine Total Protein Vancomycin Trough Crossmatch 10/30/16 10/30/16 10/30/16 06:32 12:51 17:47 WBC RBC Hgb Hct MCV RDW Plt Count Lymph % (Auto) [place] % (Auto) [place] # Seg Neutrophils % Seg Neuts % (Manual) Lymphocytes % (Manual) Monocytes % (Manual) Basophils % (Manual) Nucleated RBC % Seg Neutrophils # Seg Neutrophils # Man Lymphocytes # (Manual) Monocytes # (Manual) Eosinophils # (Manual) Basophils # (Manual) PT INR APTT Heparin Anti-Xa Level POC ABG pH POC ABG pCO2 POC ABG pO2 Sodium Potassium Chloride Carbon Dioxide BUN Creatinine Glucose POC Glucose 207 H 218 H 169 H Calcium Phosphorus Magnesium AST Alkaline Phosphatase Troponin T C-Reactive Protein Total Protein Albumin Triglycerides HDL Cholesterol Lipase Vitamin B12 TSH Urine WBC (Auto) Urine Chloride Urine Total Protein Vancomycin Trough Crossmatch 10/30/16 10/31/16 10/31/16 23:59 05:25 11:21 WBC RBC Hgb Hct MCV RDW Plt Count Lymph % (Auto) [place] % (Auto) [place] # Seg Neutrophils % Seg Neuts % (Manual) Lymphocytes % (Manual) Monocytes % (Manual) Basophils % (Manual) Nucleated RBC % Seg Neutrophils # Seg Neutrophils # Man Lymphocytes # (Manual) Monocytes # (Manual) Eosinophils # (Manual) Basophils # (Manual) PT INR APTT Heparin Anti-Xa Level POC ABG pH POC ABG pCO2 POC ABG pO2 Sodium Potassium Chloride Carbon Dioxide BUN Creatinine Glucose POC Glucose 138 H 127 H 132 H Calcium Phosphorus Magnesium AST Alkaline Phosphatase Troponin T C-Reactive Protein Total Protein Albumin Triglycerides HDL Cholesterol Lipase Vitamin B12 TSH Urine WBC (Auto) Urine Chloride Urine Total Protein Vancomycin Trough Crossmatch 10/31/16 10/31/16 11/01/16 17:07 23:54 05:47 WBC RBC Hgb Hct MCV RDW Plt Count Lymph % (Auto) [place] % (Auto) [place] # Seg Neutrophils % Seg Neuts % (Manual) Lymphocytes % (Manual) Monocytes % (Manual) Basophils % (Manual) Nucleated RBC % Seg Neutrophils # Seg Neutrophils # Man Lymphocytes # (Manual) Monocytes # (Manual) Eosinophils # (Manual) Basophils # (Manual) PT INR APTT Heparin Anti-Xa Level POC ABG pH POC ABG pCO2 POC ABG pO2 Sodium Potassium Chloride Carbon Dioxide BUN Creatinine Glucose POC Glucose 138 H 153 H 150 H Calcium Phosphorus Magnesium AST Alkaline Phosphatase Troponin T C-Reactive Protein Total Protein Albumin Triglycerides HDL Cholesterol Lipase Vitamin B12 TSH Urine WBC (Auto) Urine Chloride Urine Total Protein Vancomycin Trough Crossmatch 11/01/16 11/01/16 11/01/16 06:33 06:33 12:16 WBC 19.2 H RBC 2.51 L Hgb 7.9 L Hct 24.8 L MCV 99 H D RDW 16.1 H Plt Count 569 H Lymph % (Auto) [place] % (Auto) [place] # Seg Neutrophils % Seg Neuts % (Manual) Lymphocytes % (Manual) Monocytes % (Manual) Basophils % (Manual) Nucleated RBC % Seg Neutrophils # Seg Neutrophils # Man Lymphocytes # (Manual) Monocytes # (Manual) Eosinophils # (Manual) Basophils # (Manual) PT INR APTT Heparin Anti-Xa Level POC ABG pH POC ABG pCO2 POC ABG pO2 Sodium Potassium 3.5 L Chloride Carbon Dioxide 21 L BUN Creatinine Glucose 137 H POC Glucose 125 H Calcium 7.7 L Phosphorus Magnesium AST Alkaline Phosphatase 148 H Troponin T C-Reactive Protein Total Protein 6.2 L Albumin 2.0 L Triglycerides HDL Cholesterol Lipase Vitamin B12 TSH Urine WBC (Auto) Urine Chloride Urine Total Protein Vancomycin Trough Crossmatch 11/01/16 11/02/16 11/02/16 17:37 00:05 04:15 WBC RBC Hgb Hct MCV RDW Plt Count Lymph % (Auto) [place] % (Auto) [place] # Seg Neutrophils % Seg Neuts % (Manual) Lymphocytes % (Manual) Monocytes % (Manual) Basophils % (Manual) Nucleated RBC % Seg Neutrophils # Seg Neutrophils # Man Lymphocytes # (Manual) Monocytes # (Manual) Eosinophils # (Manual) Basophils # (Manual) PT INR APTT Heparin Anti-Xa Level < 0.10 L POC ABG pH POC ABG pCO2 POC ABG pO2 Sodium Potassium 3.2 L Chloride Carbon Dioxide BUN 6 L Creatinine Glucose 135 H POC Glucose 164 H Calcium 7.5 L Phosphorus Magnesium AST Alkaline Phosphatase 132 H Troponin T C-Reactive Protein Total Protein 6.2 L Albumin 1.8 L Triglycerides HDL Cholesterol Lipase Vitamin B12 TSH Urine WBC (Auto) Urine Chloride Urine Total Protein Vancomycin Trough Crossmatch 11/02/16 11/02/16 11/02/16 04:15 05:54 12:15 WBC 17.7 H RBC 2.43 L Hgb 7.6 L Hct 23.5 L MCV RDW 15.9 H Plt Count 502 H Lymph % (Auto) [place] % (Auto) [place] # Seg Neutrophils % Seg Neuts % (Manual) 84.0 H Lymphocytes % (Manual) 11.0 L Monocytes % (Manual) Basophils % (Manual) Nucleated RBC % 1.0 H Seg Neutrophils # Seg Neutrophils # Man 14.9 H Lymphocytes # (Manual) Monocytes # (Manual) Eosinophils # (Manual) Basophils # (Manual) PT INR APTT Heparin Anti-Xa Level POC ABG pH POC ABG pCO2 POC ABG pO2 Sodium Potassium Chloride Carbon Dioxide BUN Creatinine Glucose POC Glucose 152 H 137 H Calcium Phosphorus Magnesium AST Alkaline Phosphatase Troponin T C-Reactive Protein Total Protein Albumin Triglycerides HDL Cholesterol Lipase Vitamin B12 TSH Urine WBC (Auto) Urine Chloride Urine Total Protein Vancomycin Trough Crossmatch 11/02/16 11/03/16 11/03/16 17:00 00:05 00:05 WBC RBC Hgb Hct MCV RDW Plt Count Lymph % (Auto) [place] % (Auto) [place] # Seg Neutrophils % Seg Neuts % (Manual) Lymphocytes % (Manual) Monocytes % (Manual) Basophils % (Manual) Nucleated RBC % Seg Neutrophils # Seg Neutrophils # Man Lymphocytes # (Manual) Monocytes # (Manual) Eosinophils # (Manual) Basophils # (Manual) PT INR APTT Heparin Anti-Xa Level POC ABG pH POC ABG pCO2 POC ABG pO2 Sodium Potassium Chloride Carbon Dioxide 20 L BUN 5 L Creatinine Glucose 139 H POC Glucose 161 H Calcium 6.7 L Phosphorus Magnesium 1.2 L AST Alkaline Phosphatase Troponin T C-Reactive Protein Total Protein Albumin Triglycerides HDL Cholesterol Lipase Vitamin B12 TSH Urine WBC (Auto) Urine Chloride Urine Total Protein Vancomycin Trough Crossmatch 11/03/16 11/03/16 11/03/16 00:05 02:05 04:23 WBC 15.9 H 14.0 H RBC 1.93 L 2.38 L Hgb 5.9 L* 7.3 L Hct 18.9 L* 23.1 L MCV 98 H RDW 15.9 H 15.9 H Plt Count Lymph % (Auto) [place] % (Auto) [place] # Seg Neutrophils % Seg Neuts % (Manual) 85.0 H Lymphocytes % (Manual) 4.0 L Monocytes % (Manual) Basophils % (Manual) Nucleated RBC % Seg Neutrophils # Seg Neutrophils # Man 13.5 H Lymphocytes # (Manual) 0.6 L Monocytes # (Manual) Eosinophils # (Manual) Basophils # (Manual) PT INR APTT Heparin Anti-Xa Level POC ABG pH POC ABG pCO2 POC ABG pO2 Sodium Potassium Chloride Carbon Dioxide BUN 5 L Creatinine Glucose 127 H POC Glucose Calcium 7.2 L Phosphorus Magnesium AST Alkaline Phosphatase Troponin T C-Reactive Protein Total Protein 5.8 L Albumin 1.5 L Triglycerides HDL Cholesterol Lipase Vitamin B12 TSH Urine WBC (Auto) Urine Chloride Urine Total Protein Vancomycin Trough Crossmatch 11/03/16 11/03/16 11/03/16 09:14 09:27 11:54 WBC RBC Hgb Hct MCV RDW Plt Count Lymph % (Auto) [place] % (Auto) [place] # Seg Neutrophils % Seg Neuts % (Manual) Lymphocytes % (Manual) Monocytes % (Manual) Basophils % (Manual) Nucleated RBC % Seg Neutrophils # Seg Neutrophils # Man Lymphocytes # (Manual) Monocytes # (Manual) Eosinophils # (Manual) Basophils # (Manual) PT INR APTT Heparin Anti-Xa Level 0.11 L POC ABG pH POC ABG pCO2 POC ABG pO2 Sodium Potassium Chloride Carbon Dioxide BUN 5 L Creatinine Glucose 111 H POC Glucose 139 H Calcium 6.7 L Phosphorus Magnesium AST Alkaline Phosphatase Troponin T C-Reactive Protein Total Protein Albumin Triglycerides HDL Cholesterol Lipase Vitamin B12 TSH Urine WBC (Auto) Urine Chloride Urine Total Protein Vancomycin Trough Crossmatch 11/03/16 11/03/16 11/03/16 16:26 18:01 18:01 WBC RBC Hgb Hct MCV RDW Plt Count Lymph % (Auto) [place] % (Auto) [place] # Seg Neutrophils % Seg Neuts % (Manual) Lymphocytes % (Manual) Monocytes % (Manual) Basophils % (Manual) Nucleated RBC % Seg Neutrophils # Seg Neutrophils # Man Lymphocytes # (Manual) Monocytes # (Manual) Eosinophils # (Manual) Basophils # (Manual) PT INR APTT Heparin Anti-Xa Level 2.00 H POC ABG pH POC ABG pCO2 POC ABG pO2 Sodium Potassium Chloride Carbon Dioxide BUN Creatinine Glucose POC Glucose 142 H Calcium Phosphorus Magnesium AST Alkaline Phosphatase Troponin T C-Reactive Protein Total Protein Albumin Triglycerides HDL Cholesterol Lipase Vitamin B12 TSH Urine WBC (Auto) Urine Chloride Urine Total Protein Vancomycin Trough Crossmatch See Detail 11/04/16 11/04/16 11/04/16 02:15 02:15 06:35 WBC 11.8 H RBC 2.39 L Hgb 7.4 L Hct 23.1 L MCV RDW 15.9 H Plt Count Lymph % (Auto) [place] % (Auto) [place] # Seg Neutrophils % Seg Neuts % (Manual) 76.0 H Lymphocytes % (Manual) 12.0 L Monocytes % (Manual) 9.0 H Basophils % (Manual) Nucleated RBC % Seg Neutrophils # Seg Neutrophils # Man 9.0 H Lymphocytes # (Manual) Monocytes # (Manual) 1.1 H Eosinophils # (Manual) Basophils # (Manual) PT INR APTT Heparin Anti-Xa Level < 0.10 L POC ABG pH POC ABG pCO2 POC ABG pO2 Sodium Potassium Chloride Carbon Dioxide 21 L BUN 5 L Creatinine Glucose 112 H POC Glucose Calcium 6.8 L Phosphorus Magnesium AST Alkaline Phosphatase Troponin T C-Reactive Protein Total Protein 5.7 L Albumin 1.7 L Triglycerides HDL Cholesterol Lipase Vitamin B12 TSH Urine WBC (Auto) Urine Chloride Urine Total Protein Vancomycin Trough Crossmatch 11/04/16 11/04/16 11/04/16 10:51 12:58 15:04 WBC RBC Hgb Hct MCV RDW Plt Count Lymph % (Auto) [place] % (Auto) [place] # Seg Neutrophils % Seg Neuts % (Manual) Lymphocytes % (Manual) Monocytes % (Manual) Basophils % (Manual) Nucleated RBC % Seg Neutrophils # Seg Neutrophils # Man Lymphocytes # (Manual) Monocytes # (Manual) Eosinophils # (Manual) Basophils # (Manual) PT INR APTT Heparin Anti-Xa Level 1.05 H POC ABG pH POC ABG pCO2 33.7 L POC ABG pO2 60 L Sodium Potassium Chloride Carbon Dioxide BUN Creatinine Glucose POC Glucose 118 H Calcium Phosphorus Magnesium AST Alkaline Phosphatase Troponin T C-Reactive Protein Total Protein Albumin Triglycerides HDL Cholesterol Lipase Vitamin B12 TSH Urine WBC (Auto) Urine Chloride Urine Total Protein Vancomycin Trough Crossmatch 11/04/16 11/04/16 11/05/16 17:20 20:31 02:30 WBC RBC Hgb Hct MCV RDW Plt Count Lymph % (Auto) [place] % (Auto) [place] # Seg Neutrophils % Seg Neuts % (Manual) Lymphocytes % (Manual) Monocytes % (Manual) Basophils % (Manual) Nucleated RBC % Seg Neutrophils # Seg Neutrophils # Man Lymphocytes # (Manual) Monocytes # (Manual) Eosinophils # (Manual) Basophils # (Manual) PT INR APTT Heparin Anti-Xa Level POC ABG pH POC ABG pCO2 POC ABG pO2 Sodium Potassium 3.5 L Chloride Carbon Dioxide 18 L BUN 5 L Creatinine 0.6 L Glucose 110 H POC Glucose 228 H 169 H Calcium 7.1 L Phosphorus Magnesium AST Alkaline Phosphatase Troponin T C-Reactive Protein Total Protein Albumin 1.9 L Triglycerides HDL Cholesterol Lipase Vitamin B12 TSH Urine WBC (Auto) Urine Chloride Urine Total Protein Vancomycin Trough Crossmatch 11/05/16 11/05/16 11/05/16 02:30 17:52 21:07 WBC 14.1 H RBC Hgb Hct MCV RDW 16.7 H Plt Count Lymph % (Auto) [place] % (Auto) [place] # Seg Neutrophils % Seg Neuts % (Manual) 80.0 H Lymphocytes % (Manual) 6.0 L Monocytes % (Manual) 8.0 H Basophils % (Manual) Nucleated RBC % Seg Neutrophils # Seg Neutrophils # Man 11.3 H Lymphocytes # (Manual) 0.8 L Monocytes # (Manual) 1.1 H Eosinophils # (Manual) Basophils # (Manual) PT INR APTT Heparin Anti-Xa Level < 0.10 L POC ABG pH POC ABG pCO2 POC ABG pO2 Sodium Potassium Chloride Carbon Dioxide BUN Creatinine Glucose POC Glucose 174 H Calcium Phosphorus Magnesium AST Alkaline Phosphatase Troponin T C-Reactive Protein Total Protein Albumin Triglycerides HDL Cholesterol Lipase Vitamin B12 TSH Urine WBC (Auto) Urine Chloride Urine Total Protein Vancomycin Trough Crossmatch 11/05/16 11/06/16 11/06/16 23:30 05:00 05:00 WBC 15.2 H RBC 3.29 L Hgb 10.0 L Hct MCV RDW 16.9 H Plt Count Lymph % (Auto) [place] % (Auto) [place] # Seg Neutrophils % Seg Neuts % (Manual) Lymphocytes % (Manual) Monocytes % (Manual) Basophils % (Manual) Nucleated RBC % Seg Neutrophils # Seg Neutrophils # Man Lymphocytes # (Manual) Monocytes # (Manual) Eosinophils # (Manual) Basophils # (Manual) PT INR APTT Heparin Anti-Xa Level 0.94 H POC ABG pH POC ABG pCO2 POC ABG pO2 Sodium Potassium Chloride Carbon Dioxide BUN Creatinine Glucose POC Glucose 131 H Calcium Phosphorus Magnesium AST Alkaline Phosphatase Troponin T C-Reactive Protein Total Protein Albumin Triglycerides HDL Cholesterol Lipase Vitamin B12 TSH Urine WBC (Auto) Urine Chloride Urine Total Protein Vancomycin Trough Crossmatch 11/06/16 11/06/16 11/06/16 05:00 11:45 18:23 WBC RBC Hgb Hct MCV RDW Plt Count Lymph % (Auto) [place] % (Auto) [place] # Seg Neutrophils % Seg Neuts % (Manual) Lymphocytes % (Manual) Monocytes % (Manual) Basophils % (Manual) Nucleated RBC % Seg Neutrophils # Seg Neutrophils # Man Lymphocytes # (Manual) Monocytes # (Manual) Eosinophils # (Manual) Basophils # (Manual) PT INR APTT Heparin Anti-Xa Level POC ABG pH POC ABG pCO2 POC ABG pO2 Sodium Potassium 3.5 L Chloride 107.1 H Carbon Dioxide 20 L BUN 4 L Creatinine 0.6 L Glucose 104 H POC Glucose 141 H 255 H Calcium 6.7 L Phosphorus Magnesium AST Alkaline Phosphatase Troponin T C-Reactive Protein Total Protein Albumin Triglycerides HDL Cholesterol Lipase Vitamin B12 TSH Urine WBC (Auto) Urine Chloride Urine Total Protein Vancomycin Trough Crossmatch 11/06/16 11/06/16 11/07/16 22:07 23:07 11:41 WBC RBC Hgb Hct MCV RDW Plt Count Lymph % (Auto) [place] % (Auto) [place] # Seg Neutrophils % Seg Neuts % (Manual) Lymphocytes % (Manual) Monocytes % (Manual) Basophils % (Manual) Nucleated RBC % Seg Neutrophils # Seg Neutrophils # Man Lymphocytes # (Manual) Monocytes # (Manual) Eosinophils # (Manual) Basophils # (Manual) PT INR APTT Heparin Anti-Xa Level 0.80 H POC ABG pH POC ABG pCO2 POC ABG pO2 Sodium Potassium Chloride Carbon Dioxide BUN Creatinine Glucose POC Glucose 183 H 132 H Calcium Phosphorus Magnesium AST Alkaline Phosphatase Troponin T C-Reactive Protein Total Protein Albumin Triglycerides HDL Cholesterol Lipase Vitamin B12 TSH Urine WBC (Auto) Urine Chloride Urine Total Protein Vancomycin Trough Crossmatch 11/07/16 11/07/16 11/07/16 12:17 17:05 17:58 WBC RBC Hgb Hct MCV RDW Plt Count Lymph % (Auto) [place] % (Auto) [place] # Seg Neutrophils % Seg Neuts % (Manual) Lymphocytes % (Manual) Monocytes % (Manual) Basophils % (Manual) Nucleated RBC % Seg Neutrophils # Seg Neutrophils # Man Lymphocytes # (Manual) Monocytes # (Manual) Eosinophils # (Manual) Basophils # (Manual) PT INR APTT Heparin Anti-Xa Level 0.87 H POC ABG pH 7.324 L POC ABG pCO2 POC ABG pO2 Sodium Potassium Chloride Carbon Dioxide BUN Creatinine Glucose POC Glucose 158 H Calcium Phosphorus Magnesium AST Alkaline Phosphatase Troponin T C-Reactive Protein Total Protein Albumin Triglycerides HDL Cholesterol Lipase Vitamin B12 TSH Urine WBC (Auto) Urine Chloride Urine Total Protein Vancomycin Trough Crossmatch 11/07/16 11/07/16 11/07/16 23:26 Unknown Unknown WBC 12.3 H RBC 2.96 L Hgb 9.1 L Hct 27.9 L MCV RDW 16.8 H Plt Count Lymph % (Auto) [place] % (Auto) [place] # Seg Neutrophils % Seg Neuts % (Manual) 80.0 H Lymphocytes % (Manual) 7.0 L Monocytes % (Manual) Basophils % (Manual) Nucleated RBC % Seg Neutrophils # Seg Neutrophils # Man 9.8 H Lymphocytes # (Manual) 0.9 L Monocytes # (Manual) Eosinophils # (Manual) Basophils # (Manual) PT INR APTT Heparin Anti-Xa Level POC ABG pH POC ABG pCO2 POC ABG pO2 Sodium Potassium Chloride Carbon Dioxide 19 L BUN Creatinine Glucose 106 H POC Glucose 130 H Calcium 6.9 L Phosphorus Magnesium AST Alkaline Phosphatase Troponin T C-Reactive Protein Total Protein Albumin Triglycerides HDL Cholesterol Lipase Vitamin B12 TSH Urine WBC (Auto) Urine Chloride Urine Total Protein Vancomycin Trough Crossmatch 11/07/16 11/08/16 11/08/16 Unknown 05:14 05:20 WBC 12.4 H RBC 3.04 L Hgb 9.2 L Hct 28.8 L MCV RDW 16.6 H Plt Count Lymph % (Auto) [place] % (Auto) [place] # Seg Neutrophils % Seg Neuts % (Manual) 77.0 H Lymphocytes % (Manual) 5.0 L Monocytes % (Manual) Basophils % (Manual) 2.0 H Nucleated RBC % Seg Neutrophils # Seg Neutrophils # Man 9.5 H Lymphocytes # (Manual) 0.6 L Monocytes # (Manual) Eosinophils # (Manual) Basophils # (Manual) 0.2 H PT INR APTT Heparin Anti-Xa Level 0.90 H POC ABG pH POC ABG pCO2 POC ABG pO2 Sodium Potassium Chloride Carbon Dioxide BUN Creatinine Glucose POC Glucose 204 H Calcium Phosphorus Magnesium AST Alkaline Phosphatase Troponin T C-Reactive Protein Total Protein Albumin Triglycerides HDL Cholesterol Lipase Vitamin B12 TSH Urine WBC (Auto) Urine Chloride Urine Total Protein Vancomycin Trough Crossmatch 11/08/16 11/08/16 11/08/16 05:20 12:10 13:10 WBC RBC Hgb Hct MCV RDW Plt Count Lymph % (Auto) [place] % (Auto) [place] # Seg Neutrophils % Seg Neuts % (Manual) Lymphocytes % (Manual) Monocytes % (Manual) Basophils % (Manual) Nucleated RBC % Seg Neutrophils # Seg Neutrophils # Man Lymphocytes # (Manual) Monocytes # (Manual) Eosinophils # (Manual) Basophils # (Manual) PT INR APTT Heparin Anti-Xa Level POC ABG pH POC ABG pCO2 33.7 L POC ABG pO2 Sodium 136 L Potassium Chloride Carbon Dioxide 19 L BUN Creatinine Glucose 192 H POC Glucose 180 H Calcium 7.1 L Phosphorus Magnesium AST Alkaline Phosphatase Troponin T C-Reactive Protein Total Protein Albumin Triglycerides HDL Cholesterol Lipase Vitamin B12 TSH Urine WBC (Auto) Urine Chloride Urine Total Protein Vancomycin Trough Crossmatch 11/08/16 11/08/16 11/08/16 17:26 20:45 23:34 WBC RBC Hgb Hct MCV RDW Plt Count Lymph % (Auto) [place] % (Auto) [place] # Seg Neutrophils % Seg Neuts % (Manual) Lymphocytes % (Manual) Monocytes % (Manual) Basophils % (Manual) Nucleated RBC % Seg Neutrophils # Seg Neutrophils # Man Lymphocytes # (Manual) Monocytes # (Manual) Eosinophils # (Manual) Basophils # (Manual) PT INR APTT Heparin Anti-Xa Level POC ABG pH POC ABG pCO2 POC ABG pO2 Sodium Potassium Chloride Carbon Dioxide BUN Creatinine Glucose POC Glucose 187 H 178 H Calcium Phosphorus Magnesium AST Alkaline Phosphatase Troponin T C-Reactive Protein Total Protein Albumin Triglycerides HDL Cholesterol Lipase Vitamin B12 TSH Urine WBC (Auto) Urine Chloride Urine Total Protein Vancomycin Trough 35.4 H Crossmatch 11/09/16 11/09/16 11/09/16 05:30 05:30 05:59 WBC 11.5 H RBC 2.96 L Hgb 9.2 L Hct 28.2 L MCV RDW 16.4 H Plt Count Lymph % (Auto) [place] % (Auto) [place] # Seg Neutrophils % Seg Neuts % (Manual) 76.0 H Lymphocytes % (Manual) 2.0 L Monocytes % (Manual) Basophils % (Manual) Nucleated RBC % Seg Neutrophils # Seg Neutrophils # Man 8.7 H Lymphocytes # (Manual) 0.2 L Monocytes # (Manual) Eosinophils # (Manual) Basophils # (Manual) PT INR APTT Heparin Anti-Xa Level POC ABG pH POC ABG pCO2 POC ABG pO2 Sodium Potassium 3.4 L Chloride 107.6 H Carbon Dioxide 19 L BUN Creatinine 0.6 L Glucose 207 H POC Glucose 263 H Calcium 7.3 L Phosphorus Magnesium AST Alkaline Phosphatase Troponin T C-Reactive Protein Total Protein Albumin Triglycerides HDL Cholesterol Lipase Vitamin B12 TSH Urine WBC (Auto) Urine Chloride Urine Total Protein Vancomycin Trough Crossmatch 11/09/16 11/09/16 11/09/16 11:49 15:24 18:04 WBC RBC Hgb Hct MCV RDW Plt Count Lymph % (Auto) [place] % (Auto) [place] # Seg Neutrophils % Seg Neuts % (Manual) Lymphocytes % (Manual) Monocytes % (Manual) Basophils % (Manual) Nucleated RBC % Seg Neutrophils # Seg Neutrophils # Man Lymphocytes # (Manual) Monocytes # (Manual) Eosinophils # (Manual) Basophils # (Manual) PT INR APTT Heparin Anti-Xa Level POC ABG pH POC ABG pCO2 33.8 L POC ABG pO2 131 H Sodium Potassium Chloride Carbon Dioxide BUN Creatinine Glucose POC Glucose 269 H 242 H Calcium Phosphorus Magnesium AST Alkaline Phosphatase Troponin T C-Reactive Protein Total Protein Albumin Triglycerides HDL Cholesterol Lipase Vitamin B12 TSH Urine WBC (Auto) Urine Chloride Urine Total Protein Vancomycin Trough Crossmatch 11/09/16 11/10/16 11/10/16 22:57 04:30 04:30 WBC 15.7 H RBC 3.17 L Hgb 9.7 L Hct 30.2 L MCV RDW 16.2 H Plt Count Lymph % (Auto) [place] % (Auto) [place] # Seg Neutrophils % Seg Neuts % (Manual) Lymphocytes % (Manual) Monocytes % (Manual) Basophils % (Manual) Nucleated RBC % Seg Neutrophils # Seg Neutrophils # Man 8.5 H Lymphocytes # (Manual) Monocytes # (Manual) Eosinophils # (Manual) 0.5 H Basophils # (Manual) PT INR APTT Heparin Anti-Xa Level POC ABG pH POC ABG pCO2 POC ABG pO2 Sodium Potassium Chloride Carbon Dioxide 19 L BUN Creatinine 0.6 L Glucose 199 H POC Glucose 239 H Calcium 7.8 L Phosphorus Magnesium AST Alkaline Phosphatase Troponin T C-Reactive Protein Total Protein Albumin Triglycerides HDL Cholesterol Lipase Vitamin B12 TSH Urine WBC (Auto) Urine Chloride Urine Total Protein Vancomycin Trough Crossmatch 11/10/16 11/10/16 11/10/16 04:30 11:32 16:00 WBC RBC Hgb Hct MCV RDW Plt Count Lymph % (Auto) [place] % (Auto) [place] # Seg Neutrophils % Seg Neuts % (Manual) Lymphocytes % (Manual) Monocytes % (Manual) Basophils % (Manual) Nucleated RBC % Seg Neutrophils # Seg Neutrophils # Man Lymphocytes # (Manual) Monocytes # (Manual) Eosinophils # (Manual) Basophils # (Manual) PT INR APTT Heparin Anti-Xa Level 1.09 H < 0.10 L POC ABG pH POC ABG pCO2 POC ABG pO2 Sodium Potassium Chloride Carbon Dioxide BUN Creatinine Glucose POC Glucose 211 H Calcium Phosphorus Magnesium AST Alkaline Phosphatase Troponin T C-Reactive Protein Total Protein Albumin Triglycerides HDL Cholesterol Lipase Vitamin B12 TSH Urine WBC (Auto) Urine Chloride Urine Total Protein Vancomycin Trough Crossmatch 11/10/16 11/10/16 11/10/16 17:39 18:00 23:06 WBC RBC Hgb Hct MCV RDW Plt Count Lymph % (Auto) [place] % (Auto) [place] # Seg Neutrophils % Seg Neuts % (Manual) Lymphocytes % (Manual) Monocytes % (Manual) Basophils % (Manual) Nucleated RBC % Seg Neutrophils # Seg Neutrophils # Man Lymphocytes # (Manual) Monocytes # (Manual) Eosinophils # (Manual) Basophils # (Manual) PT INR APTT Heparin Anti-Xa Level 0.85 H POC ABG pH POC ABG pCO2 POC ABG pO2 Sodium Potassium Chloride Carbon Dioxide BUN Creatinine Glucose POC Glucose 249 H 220 H Calcium Phosphorus Magnesium AST Alkaline Phosphatase Troponin T C-Reactive Protein Total Protein Albumin Triglycerides HDL Cholesterol Lipase Vitamin B12 TSH Urine WBC (Auto) Urine Chloride Urine Total Protein Vancomycin Trough Crossmatch 11/11/16 11/11/16 11/11/16 05:56 06:15 06:15 WBC 13.3 H RBC 2.87 L Hgb 8.7 L Hct 27.2 L MCV RDW 16.4 H Plt Count Lymph % (Auto) [place] % (Auto) [place] # 0.9 H Seg Neutrophils % 78.9 H Seg Neuts % (Manual) Lymphocytes % (Manual) Monocytes % (Manual) Basophils % (Manual) Nucleated RBC % Seg Neutrophils # 10.5 H Seg Neutrophils # Man Lymphocytes # (Manual) Monocytes # (Manual) Eosinophils # (Manual) Basophils # (Manual) PT INR APTT Heparin Anti-Xa Level POC ABG pH POC ABG pCO2 POC ABG pO2 Sodium Potassium 3.2 L Chloride Carbon Dioxide 19 L BUN Creatinine Glucose POC Glucose 117 H Calcium 7.6 L Phosphorus Magnesium AST Alkaline Phosphatase Troponin T C-Reactive Protein Total Protein Albumin Triglycerides HDL Cholesterol Lipase Vitamin B12 TSH Urine WBC (Auto) Urine Chloride Urine Total Protein Vancomycin Trough Crossmatch 11/11/16 11/11/16 11/11/16 12:26 16:58 17:33 WBC RBC Hgb Hct MCV RDW Plt Count Lymph % (Auto) [place] % (Auto) [place] # Seg Neutrophils % Seg Neuts % (Manual) Lymphocytes % (Manual) Monocytes % (Manual) Basophils % (Manual) Nucleated RBC % Seg Neutrophils # Seg Neutrophils # Man Lymphocytes # (Manual) Monocytes # (Manual) Eosinophils # (Manual) Basophils # (Manual) PT INR APTT Heparin Anti-Xa Level < 0.10 L POC ABG pH POC ABG pCO2 POC ABG pO2 Sodium Potassium Chloride Carbon Dioxide BUN Creatinine Glucose POC Glucose 114 H 161 H Calcium Phosphorus Magnesium AST Alkaline Phosphatase Troponin T C-Reactive Protein Total Protein Albumin Triglycerides HDL Cholesterol Lipase Vitamin B12 TSH Urine WBC (Auto) Urine Chloride Urine Total Protein Vancomycin Trough Crossmatch 11/12/16 11/12/16 11/12/16 05:00 05:00 05:00 WBC 12.8 H RBC 2.75 L Hgb 8.4 L Hct 25.7 L MCV RDW 16.3 H Plt Count Lymph % (Auto) [place] % (Auto) 7.5 H [place] # 1.0 H Seg Neutrophils % 78.0 H Seg Neuts % (Manual) Lymphocytes % (Manual) Monocytes % (Manual) Basophils % (Manual) Nucleated RBC % Seg Neutrophils # 10.0 H Seg Neutrophils # Man Lymphocytes # (Manual) Monocytes # (Manual) Eosinophils # (Manual) Basophils # (Manual) PT INR APTT Heparin Anti-Xa Level 0.87 H POC ABG pH POC ABG pCO2 POC ABG pO2 Sodium Potassium 3.4 L Chloride Carbon Dioxide 19 L BUN Creatinine Glucose 112 H POC Glucose Calcium 7.7 L Phosphorus Magnesium AST Alkaline Phosphatase Troponin T C-Reactive Protein Total Protein Albumin Triglycerides HDL Cholesterol Lipase Vitamin B12 TSH Urine WBC (Auto) Urine Chloride Urine Total Protein Vancomycin Trough Crossmatch 11/12/16 11/12/16 11/13/16 11:18 16:40 00:44 WBC RBC Hgb Hct MCV RDW Plt Count Lymph % (Auto) [place] % (Auto) [place] # Seg Neutrophils % Seg Neuts % (Manual) Lymphocytes % (Manual) Monocytes % (Manual) Basophils % (Manual) Nucleated RBC % Seg Neutrophils # Seg Neutrophils # Man Lymphocytes # (Manual) Monocytes # (Manual) Eosinophils # (Manual) Basophils # (Manual) PT INR APTT Heparin Anti-Xa Level POC ABG pH POC ABG pCO2 POC ABG pO2 Sodium Potassium Chloride Carbon Dioxide BUN Creatinine Glucose POC Glucose 135 H 139 H 169 H Calcium Phosphorus Magnesium AST Alkaline Phosphatase Troponin T C-Reactive Protein Total Protein Albumin Triglycerides HDL Cholesterol Lipase Vitamin B12 TSH Urine WBC (Auto) Urine Chloride Urine Total Protein Vancomycin Trough Crossmatch 11/13/16 11/13/16 11/13/16 05:28 05:28 06:02 WBC 12.7 H RBC 2.93 L Hgb 9.0 L Hct 27.6 L MCV RDW 16.1 H Plt Count Lymph % (Auto) [place] % (Auto) [place] # Seg Neutrophils % 78.6 H Seg Neuts % (Manual) Lymphocytes % (Manual) Monocytes % (Manual) Basophils % (Manual) Nucleated RBC % Seg Neutrophils # 10.0 H Seg Neutrophils # Man Lymphocytes # (Manual) Monocytes # (Manual) Eosinophils # (Manual) Basophils # (Manual) PT INR APTT Heparin Anti-Xa Level POC ABG pH POC ABG pCO2 POC ABG pO2 Sodium Potassium Chloride Carbon Dioxide 17 L BUN Creatinine Glucose 116 H POC Glucose 112 H Calcium 7.8 L Phosphorus Magnesium AST Alkaline Phosphatase Troponin T C-Reactive Protein Total Protein Albumin Triglycerides HDL Cholesterol Lipase Vitamin B12 TSH Urine WBC (Auto) Urine Chloride Urine Total Protein Vancomycin Trough Crossmatch 11/13/16 11/13/16 11/13/16 12:34 16:55 17:00 WBC RBC Hgb Hct MCV RDW Plt Count Lymph % (Auto) [place] % (Auto) [place] # Seg Neutrophils % Seg Neuts % (Manual) Lymphocytes % (Manual) Monocytes % (Manual) Basophils % (Manual) Nucleated RBC % Seg Neutrophils # Seg Neutrophils # Man Lymphocytes # (Manual) Monocytes # (Manual) Eosinophils # (Manual) Basophils # (Manual) PT INR APTT Heparin Anti-Xa Level POC ABG pH POC ABG pCO2 22.9 L POC ABG pO2 53 L Sodium Potassium Chloride Carbon Dioxide BUN Creatinine Glucose POC Glucose 109 H 122 H Calcium Phosphorus Magnesium AST Alkaline Phosphatase Troponin T C-Reactive Protein Total Protein Albumin Triglycerides HDL Cholesterol Lipase Vitamin B12 TSH Urine WBC (Auto) Urine Chloride Urine Total Protein Vancomycin Trough Crossmatch 11/13/16 11/14/16 11/14/16 23:33 04:42 04:42 WBC 11.7 H RBC 3.01 L Hgb 9.3 L Hct 28.9 L MCV RDW 16.5 H Plt Count Lymph % (Auto) [place] % (Auto) [place] # Seg Neutrophils % Seg Neuts % (Manual) 79.0 H Lymphocytes % (Manual) 10.0 L Monocytes % (Manual) Basophils % (Manual) Nucleated RBC % Seg Neutrophils # Seg Neutrophils # Man 9.2 H Lymphocytes # (Manual) Monocytes # (Manual) Eosinophils # (Manual) Basophils # (Manual) PT INR APTT Heparin Anti-Xa Level POC ABG pH POC ABG pCO2 POC ABG pO2 Sodium Potassium Chloride Carbon Dioxide 16 L BUN Creatinine Glucose 102 H POC Glucose 173 H Calcium 7.5 L Phosphorus Magnesium AST Alkaline Phosphatase Troponin T C-Reactive Protein Total Protein Albumin Triglycerides HDL Cholesterol Lipase Vitamin B12 TSH Urine WBC (Auto) Urine Chloride Urine Total Protein Vancomycin Trough Crossmatch 11/14/16 11/14/16 11/14/16 11:43 16:57 19:45 WBC RBC Hgb Hct MCV RDW Plt Count Lymph % (Auto) [place] % (Auto) [place] # Seg Neutrophils % Seg Neuts % (Manual) Lymphocytes % (Manual) Monocytes % (Manual) Basophils % (Manual) Nucleated RBC % Seg Neutrophils # Seg Neutrophils # Man Lymphocytes # (Manual) Monocytes # (Manual) Eosinophils # (Manual) Basophils # (Manual) PT INR APTT Heparin Anti-Xa Level 0.71 H POC ABG pH POC ABG pCO2 POC ABG pO2 Sodium Potassium Chloride Carbon Dioxide BUN Creatinine Glucose POC Glucose 130 H 209 H Calcium Phosphorus Magnesium AST Alkaline Phosphatase Troponin T C-Reactive Protein Total Protein Albumin Triglycerides HDL Cholesterol Lipase Vitamin B12 TSH Urine WBC (Auto) Urine Chloride Urine Total Protein Vancomycin Trough Crossmatch 11/14/16 11/15/16 11/16/16 23:43 23:47 06:11 WBC RBC Hgb Hct MCV RDW Plt Count Lymph % (Auto) [place] % (Auto) [place] # Seg Neutrophils % Seg Neuts % (Manual) Lymphocytes % (Manual) Monocytes % (Manual) Basophils % (Manual) Nucleated RBC % Seg Neutrophils # Seg Neutrophils # Man Lymphocytes # (Manual) Monocytes # (Manual) Eosinophils # (Manual) Basophils # (Manual) PT INR APTT Heparin Anti-Xa Level POC ABG pH POC ABG pCO2 POC ABG pO2 Sodium Potassium Chloride Carbon Dioxide BUN Creatinine Glucose POC Glucose 167 H 114 H 125 H Calcium Phosphorus Magnesium AST Alkaline Phosphatase Troponin T C-Reactive Protein Total Protein Albumin Triglycerides HDL Cholesterol Lipase Vitamin B12 TSH Urine WBC (Auto) Urine Chloride Urine Total Protein Vancomycin Trough Crossmatch 11/16/16 11/16/16 11/16/16 09:05 09:05 09:05 WBC RBC 2.53 L Hgb 8.0 L Hct 23.7 L MCV RDW 15.9 H Plt Count Lymph % (Auto) [place] % (Auto) [place] # Seg Neutrophils % Seg Neuts % (Manual) Lymphocytes % (Manual) Monocytes % (Manual) Basophils % (Manual) Nucleated RBC % Seg Neutrophils # Seg Neutrophils # Man Lymphocytes # (Manual) Monocytes # (Manual) Eosinophils # (Manual) Basophils # (Manual) PT INR APTT Heparin Anti-Xa Level POC ABG pH POC ABG pCO2 POC ABG pO2 Sodium Potassium 2.5 L* D Chloride Carbon Dioxide 19 L BUN 5 L Creatinine Glucose 103 H POC Glucose Calcium 6.6 L Phosphorus Magnesium 1.3 L AST Alkaline Phosphatase Troponin T C-Reactive Protein Total Protein Albumin Triglycerides HDL Cholesterol Lipase Vitamin B12 TSH Urine WBC (Auto) Urine Chloride Urine Total Protein Vancomycin Trough Crossmatch 11/16/16 11/16/16 11/16/16 12:15 13:00 14:45 WBC RBC Hgb Hct MCV RDW Plt Count Lymph % (Auto) [place] % (Auto) [place] # Seg Neutrophils % Seg Neuts % (Manual) Lymphocytes % (Manual) Monocytes % (Manual) Basophils % (Manual) Nucleated RBC % Seg Neutrophils # Seg Neutrophils # Man Lymphocytes # (Manual) Monocytes # (Manual) Eosinophils # (Manual) Basophils # (Manual) PT 19.1 H INR 1.61 H APTT Heparin Anti-Xa Level POC ABG pH 7.479 H POC ABG pCO2 23.6 L POC ABG pO2 Sodium Potassium Chloride Carbon Dioxide BUN Creatinine Glucose POC Glucose 129 H Calcium Phosphorus Magnesium AST Alkaline Phosphatase Troponin T C-Reactive Protein Total Protein Albumin Triglycerides HDL Cholesterol Lipase Vitamin B12 TSH Urine WBC (Auto) Urine Chloride Urine Total Protein Vancomycin Trough Crossmatch 11/16/16 11/17/16 11/17/16 17:43 00:30 04:32 WBC RBC Hgb Hct MCV RDW Plt Count Lymph % (Auto) [place] % (Auto) [place] # Seg Neutrophils % Seg Neuts % (Manual) Lymphocytes % (Manual) Monocytes % (Manual) Basophils % (Manual) Nucleated RBC % Seg Neutrophils # Seg Neutrophils # Man Lymphocytes # (Manual) Monocytes # (Manual) Eosinophils # (Manual) Basophils # (Manual) PT INR APTT Heparin Anti-Xa Level POC ABG pH POC ABG pCO2 POC ABG pO2 Sodium Potassium Chloride Carbon Dioxide 18 L BUN Creatinine Glucose 127 H POC Glucose 224 H 259 H Calcium 7.5 L Phosphorus Magnesium AST Alkaline Phosphatase Troponin T C-Reactive Protein Total Protein Albumin Triglycerides HDL Cholesterol Lipase Vitamin B12 TSH Urine WBC (Auto) Urine Chloride Urine Total Protein Vancomycin Trough Crossmatch 11/17/16 11/17/16 11/17/16 05:42 08:34 12:19 WBC RBC 2.85 L Hgb 8.9 L Hct 26.5 L MCV RDW 16.2 H Plt Count Lymph % (Auto) [place] % (Auto) [place] # Seg Neutrophils % Seg Neuts % (Manual) Lymphocytes % (Manual) Monocytes % (Manual) Basophils % (Manual) Nucleated RBC % Seg Neutrophils # Seg Neutrophils # Man Lymphocytes # (Manual) Monocytes # (Manual) Eosinophils # (Manual) Basophils # (Manual) PT INR APTT Heparin Anti-Xa Level POC ABG pH POC ABG pCO2 POC ABG pO2 Sodium Potassium Chloride Carbon Dioxide BUN Creatinine Glucose POC Glucose 118 H 264 H Calcium Phosphorus Magnesium AST Alkaline Phosphatase Troponin T C-Reactive Protein Total Protein Albumin Triglycerides HDL Cholesterol Lipase Vitamin B12 TSH Urine WBC (Auto) Urine Chloride Urine Total Protein Vancomycin Trough Crossmatch 11/17/16 11/17/16 11/18/16 16:52 23:44 04:53 WBC RBC Hgb Hct MCV RDW Plt Count Lymph % (Auto) [place] % (Auto) [place] # Seg Neutrophils % Seg Neuts % (Manual) Lymphocytes % (Manual) Monocytes % (Manual) Basophils % (Manual) Nucleated RBC % Seg Neutrophils # Seg Neutrophils # Man Lymphocytes # (Manual) Monocytes # (Manual) Eosinophils # (Manual) Basophils # (Manual) PT INR APTT Heparin Anti-Xa Level POC ABG pH POC ABG pCO2 POC ABG pO2 Sodium Potassium Chloride Carbon Dioxide BUN Creatinine Glucose POC Glucose 256 H 109 H 287 H Calcium Phosphorus Magnesium AST Alkaline Phosphatase Troponin T C-Reactive Protein Total Protein Albumin Triglycerides HDL Cholesterol Lipase Vitamin B12 TSH Urine WBC (Auto) Urine Chloride Urine Total Protein Vancomycin Trough Crossmatch 11/18/16 11/18/16 11/18/16 05:31 05:45 05:45 WBC RBC Hgb Hct MCV RDW Plt Count Lymph % (Auto) [place] % (Auto) [place] # Seg Neutrophils % Seg Neuts % (Manual) Lymphocytes % (Manual) Monocytes % (Manual) Basophils % (Manual) Nucleated RBC % Seg Neutrophils # Seg Neutrophils # Man Lymphocytes # (Manual) Monocytes # (Manual) Eosinophils # (Manual) Basophils # (Manual) PT 20.1 H INR 1.72 H APTT 131.1 H* Heparin Anti-Xa Level 0.18 L POC ABG pH 7.252 L POC ABG pCO2 32.0 L POC ABG pO2 Sodium Potassium Chloride 107.1 H Carbon Dioxide 17 L BUN Creatinine Glucose 284 H POC Glucose Calcium 7.2 L Phosphorus Magnesium AST Alkaline Phosphatase Troponin T C-Reactive Protein Total Protein 5.5 L Albumin 2.1 L Triglycerides HDL Cholesterol Lipase Vitamin B12 TSH Urine WBC (Auto) Urine Chloride Urine Total Protein Vancomycin Trough Crossmatch 11/18/16 11/18/16 11/18/16 05:45 09:17 12:06 WBC 13.3 H RBC 3.07 L Hgb 9.2 L Hct 29.5 L MCV RDW 16.9 H Plt Count Lymph % (Auto) 11.0 L [place] % (Auto) [place] # Seg Neutrophils % 82.9 H Seg Neuts % (Manual) Lymphocytes % (Manual) Monocytes % (Manual) Basophils % (Manual) Nucleated RBC % Seg Neutrophils # 11.0 H Seg Neutrophils # Man Lymphocytes # (Manual) Monocytes # (Manual) Eosinophils # (Manual) Basophils # (Manual) PT INR APTT Heparin Anti-Xa Level POC ABG pH POC ABG pCO2 24.3 L POC ABG pO2 79 L Sodium Potassium Chloride Carbon Dioxide BUN Creatinine Glucose POC Glucose 433 H Calcium Phosphorus Magnesium AST Alkaline Phosphatase Troponin T C-Reactive Protein Total Protein Albumin Triglycerides HDL Cholesterol Lipase Vitamin B12 TSH Urine WBC (Auto) Urine Chloride Urine Total Protein Vancomycin Trough Crossmatch 11/18/16 11/18/16 11/18/16 12:09 13:00 17:22 WBC 12.6 H RBC 2.79 L Hgb 8.6 L Hct 26.6 L MCV RDW 17.0 H Plt Count Lymph % (Auto) [place] % (Auto) [place] # Seg Neutrophils % Seg Neuts % (Manual) 90.0 H Lymphocytes % (Manual) 8.0 L Monocytes % (Manual) Basophils % (Manual) Nucleated RBC % Seg Neutrophils # Seg Neutrophils # Man 11.3 H Lymphocytes # (Manual) 1.0 L Monocytes # (Manual) Eosinophils # (Manual) Basophils # (Manual) PT INR APTT Heparin Anti-Xa Level POC ABG pH POC ABG pCO2 POC ABG pO2 Sodium Potassium Chloride Carbon Dioxide BUN Creatinine Glucose POC Glucose 429 H 297 H Calcium Phosphorus Magnesium AST Alkaline Phosphatase Troponin T C-Reactive Protein Total Protein Albumin Triglycerides HDL Cholesterol Lipase Vitamin B12 TSH Urine WBC (Auto) Urine Chloride Urine Total Protein Vancomycin Trough Crossmatch 11/18/16 11/19/16 11/19/16 23:27 04:30 04:30 WBC RBC 2.92 L Hgb 8.8 L Hct 27.0 L MCV RDW 16.6 H Plt Count Lymph % (Auto) [place] % (Auto) [place] # Seg Neutrophils % Seg Neuts % (Manual) Lymphocytes % (Manual) Monocytes % (Manual) Basophils % (Manual) Nucleated RBC % Seg Neutrophils # Seg Neutrophils # Man Lymphocytes # (Manual) Monocytes # (Manual) Eosinophils # (Manual) Basophils # (Manual) PT INR APTT Heparin Anti-Xa Level POC ABG pH POC ABG pCO2 POC ABG pO2 Sodium Potassium 3.0 L Chloride 107.9 H Carbon Dioxide 20 L BUN Creatinine Glucose 231 H POC Glucose 268 H Calcium 7.1 L Phosphorus Magnesium AST Alkaline Phosphatase Troponin T C-Reactive Protein Total Protein 5.5 L Albumin 2.1 L Triglycerides HDL Cholesterol Lipase Vitamin B12 TSH Urine WBC (Auto) Urine Chloride Urine Total Protein Vancomycin Trough Crossmatch 11/19/16 11/19/16 11/19/16 04:40 06:40 10:00 WBC RBC Hgb Hct MCV RDW Plt Count Lymph % (Auto) [place] % (Auto) [place] # Seg Neutrophils % Seg Neuts % (Manual) Lymphocytes % (Manual) Monocytes % (Manual) Basophils % (Manual) Nucleated RBC % Seg Neutrophils # Seg Neutrophils # Man Lymphocytes # (Manual) Monocytes # (Manual) Eosinophils # (Manual) Basophils # (Manual) PT INR APTT Heparin Anti-Xa Level POC ABG pH POC ABG pCO2 POC ABG pO2 Sodium Potassium Chloride Carbon Dioxide BUN Creatinine Glucose POC Glucose 267 H 244 H Calcium Phosphorus Magnesium 1.4 L AST Alkaline Phosphatase Troponin T C-Reactive Protein Total Protein Albumin Triglycerides HDL Cholesterol Lipase Vitamin B12 TSH Urine WBC (Auto) Urine Chloride Urine Total Protein Vancomycin Trough Crossmatch 11/19/16 11/19/16 11/19/16 12:08 18:10 23:40 WBC RBC Hgb Hct MCV RDW Plt Count Lymph % (Auto) [place] % (Auto) [place] # Seg Neutrophils % Seg Neuts % (Manual) Lymphocytes % (Manual) Monocytes % (Manual) Basophils % (Manual) Nucleated RBC % Seg Neutrophils # Seg Neutrophils # Man Lymphocytes # (Manual) Monocytes # (Manual) Eosinophils # (Manual) Basophils # (Manual) PT INR APTT Heparin Anti-Xa Level POC ABG pH POC ABG pCO2 POC ABG pO2 Sodium Potassium Chloride Carbon Dioxide BUN Creatinine Glucose POC Glucose 254 H 265 H 197 H Calcium Phosphorus Magnesium AST Alkaline Phosphatase Troponin T C-Reactive Protein Total Protein Albumin Triglycerides HDL Cholesterol Lipase Vitamin B12 TSH Urine WBC (Auto) Urine Chloride Urine Total Protein Vancomycin Trough Crossmatch 11/20/16 11/20/16 11/20/16 05:00 05:44 11:33 WBC RBC Hgb Hct MCV RDW Plt Count Lymph % (Auto) [place] % (Auto) [place] # Seg Neutrophils % Seg Neuts % (Manual) Lymphocytes % (Manual) Monocytes % (Manual) Basophils % (Manual) Nucleated RBC % Seg Neutrophils # Seg Neutrophils # Man Lymphocytes # (Manual) Monocytes # (Manual) Eosinophils # (Manual) Basophils # (Manual) PT INR APTT Heparin Anti-Xa Level POC ABG pH POC ABG pCO2 POC ABG pO2 Sodium Potassium 3.4 L Chloride 107.4 H Carbon Dioxide 20 L BUN Creatinine Glucose 140 H POC Glucose 163 H 108 H Calcium 7.2 L Phosphorus Magnesium AST Alkaline Phosphatase Troponin T C-Reactive Protein Total Protein Albumin Triglycerides HDL Cholesterol Lipase Vitamin B12 TSH Urine WBC (Auto) Urine Chloride Urine Total Protein Vancomycin Trough Crossmatch 11/20/16 11/20/16 11/20/16 13:03 16:45 23:26 WBC RBC Hgb Hct MCV RDW Plt Count Lymph % (Auto) [place] % (Auto) [place] # Seg Neutrophils % Seg Neuts % (Manual) Lymphocytes % (Manual) Monocytes % (Manual) Basophils % (Manual) Nucleated RBC % Seg Neutrophils # Seg Neutrophils # Man Lymphocytes # (Manual) Monocytes # (Manual) Eosinophils # (Manual) Basophils # (Manual) PT INR APTT Heparin Anti-Xa Level POC ABG pH POC ABG pCO2 POC ABG pO2 Sodium Potassium Chloride Carbon Dioxide BUN Creatinine Glucose POC Glucose 113 H 168 H Calcium Phosphorus Magnesium AST Alkaline Phosphatase Troponin T C-Reactive Protein Total Protein Albumin Triglycerides HDL Cholesterol Lipase Vitamin B12 TSH Urine WBC (Auto) Urine Chloride Urine Total Protein Vancomycin Trough 45.8 H Crossmatch 11/21/16 11/21/16 11/21/16 05:00 05:27 09:50 WBC RBC Hgb Hct MCV RDW Plt Count Lymph % (Auto) [place] % (Auto) [place] # Seg Neutrophils % Seg Neuts % (Manual) Lymphocytes % (Manual) Monocytes % (Manual) Basophils % (Manual) Nucleated RBC % Seg Neutrophils # Seg Neutrophils # Man Lymphocytes # (Manual) Monocytes # (Manual) Eosinophils # (Manual) Basophils # (Manual) PT INR APTT Heparin Anti-Xa Level POC ABG pH POC ABG pCO2 POC ABG pO2 Sodium 133 L D Potassium Chloride Carbon Dioxide 19 L BUN Creatinine Glucose 280 H POC Glucose 222 H Calcium 7.4 L Phosphorus Magnesium AST Alkaline Phosphatase Troponin T C-Reactive Protein Total Protein Albumin Triglycerides HDL Cholesterol Lipase Vitamin B12 TSH Urine WBC (Auto) Urine Chloride Urine Total Protein Vancomycin Trough 30.4 H Crossmatch 11/21/16 11/21/16 11/21/16 12:36 17:17 18:34 WBC RBC Hgb Hct MCV RDW Plt Count Lymph % (Auto) [place] % (Auto) [place] # Seg Neutrophils % Seg Neuts % (Manual) Lymphocytes % (Manual) Monocytes % (Manual) Basophils % (Manual) Nucleated RBC % Seg Neutrophils # Seg Neutrophils # Man Lymphocytes # (Manual) Monocytes # (Manual) Eosinophils # (Manual) Basophils # (Manual) PT INR APTT Heparin Anti-Xa Level POC ABG pH POC ABG pCO2 POC ABG pO2 Sodium Potassium Chloride Carbon Dioxide BUN Creatinine Glucose POC Glucose 306 H 339 H 318 H Calcium Phosphorus Magnesium AST Alkaline Phosphatase Troponin T C-Reactive Protein Total Protein Albumin Triglycerides HDL Cholesterol Lipase Vitamin B12 TSH Urine WBC (Auto) Urine Chloride Urine Total Protein Vancomycin Trough Crossmatch 11/21/16 11/22/16 11/22/16 23:16 07:19 11:49 WBC 11.1 H RBC 2.60 L Hgb 7.8 L Hct 24.4 L MCV RDW 16.3 H Plt Count Lymph % (Auto) [place] % (Auto) [place] # Seg Neutrophils % 76.8 H Seg Neuts % (Manual) Lymphocytes % (Manual) Monocytes % (Manual) Basophils % (Manual) Nucleated RBC % Seg Neutrophils # 8.5 H Seg Neutrophils # Man Lymphocytes # (Manual) Monocytes # (Manual) Eosinophils # (Manual) Basophils # (Manual) PT INR APTT Heparin Anti-Xa Level POC ABG pH POC ABG pCO2 POC ABG pO2 Sodium Potassium Chloride Carbon Dioxide BUN Creatinine Glucose POC Glucose 286 H 371 H Calcium Phosphorus Magnesium AST Alkaline Phosphatase Troponin T C-Reactive Protein Total Protein Albumin Triglycerides HDL Cholesterol Lipase Vitamin B12 TSH Urine WBC (Auto) Urine Chloride Urine Total Protein Vancomycin Trough Crossmatch 11/22/16 11/22/16 11/22/16 11:50 11:50 17:34 WBC RBC Hgb Hct MCV RDW Plt Count Lymph % (Auto) [place] % (Auto) [place] # Seg Neutrophils % Seg Neuts % (Manual) Lymphocytes % (Manual) Monocytes % (Manual) Basophils % (Manual) Nucleated RBC % Seg Neutrophils # Seg Neutrophils # Man Lymphocytes # (Manual) Monocytes # (Manual) Eosinophils # (Manual) Basophils # (Manual) PT INR APTT Heparin Anti-Xa Level POC ABG pH POC ABG pCO2 POC ABG pO2 Sodium 130 L Potassium Chloride Carbon Dioxide 19 L BUN 20 H Creatinine Glucose 266 H POC Glucose 262 H 284 H Calcium 7.2 L Phosphorus Magnesium AST Alkaline Phosphatase Troponin T C-Reactive Protein Total Protein Albumin Triglycerides HDL Cholesterol Lipase Vitamin B12 TSH Urine WBC (Auto) Urine Chloride Urine Total Protein Vancomycin Trough Crossmatch 11/22/16 11/22/16 11/22/16 17:43 20:04 23:38 WBC RBC Hgb Hct MCV RDW Plt Count Lymph % (Auto) [place] % (Auto) [place] # Seg Neutrophils % Seg Neuts % (Manual) Lymphocytes % (Manual) Monocytes % (Manual) Basophils % (Manual) Nucleated RBC % Seg Neutrophils # Seg Neutrophils # Man Lymphocytes # (Manual) Monocytes # (Manual) Eosinophils # (Manual) Basophils # (Manual) PT INR APTT Heparin Anti-Xa Level POC ABG pH 7.492 H POC ABG pCO2 23.2 L POC ABG pO2 60 L Sodium Potassium Chloride Carbon Dioxide BUN Creatinine Glucose POC Glucose 261 H 253 H Calcium Phosphorus Magnesium AST Alkaline Phosphatase Troponin T C-Reactive Protein Total Protein Albumin Triglycerides HDL Cholesterol Lipase Vitamin B12 TSH Urine WBC (Auto) Urine Chloride Urine Total Protein Vancomycin Trough Crossmatch 11/23/16 11/23/16 11/23/16 06:27 08:20 11:54 WBC RBC Hgb 8.2 L Hct 24.9 L MCV RDW Plt Count Lymph % (Auto) [place] % (Auto) [place] # Seg Neutrophils % Seg Neuts % (Manual) Lymphocytes % (Manual) Monocytes % (Manual) Basophils % (Manual) Nucleated RBC % Seg Neutrophils # Seg Neutrophils # Man Lymphocytes # (Manual) Monocytes # (Manual) Eosinophils # (Manual) Basophils # (Manual) PT INR APTT Heparin Anti-Xa Level POC ABG pH POC ABG pCO2 POC ABG pO2 Sodium Potassium Chloride Carbon Dioxide BUN Creatinine Glucose POC Glucose 333 H 286 H Calcium Phosphorus Magnesium AST Alkaline Phosphatase Troponin T C-Reactive Protein Total Protein Albumin Triglycerides HDL Cholesterol Lipase Vitamin B12 TSH Urine WBC (Auto) Urine Chloride Urine Total Protein Vancomycin Trough Crossmatch 11/23/16 11/23/16 11/24/16 17:53 23:51 00:12 WBC RBC Hgb Hct MCV RDW Plt Count Lymph % (Auto) [place] % (Auto) [place] # Seg Neutrophils % Seg Neuts % (Manual) Lymphocytes % (Manual) Monocytes % (Manual) Basophils % (Manual) Nucleated RBC % Seg Neutrophils # Seg Neutrophils # Man Lymphocytes # (Manual) Monocytes # (Manual) Eosinophils # (Manual) Basophils # (Manual) PT INR APTT Heparin Anti-Xa Level POC ABG pH POC ABG pCO2 POC ABG pO2 Sodium Potassium Chloride Carbon Dioxide BUN Creatinine Glucose POC Glucose 195 H 214 H 223 H Calcium Phosphorus Magnesium AST Alkaline Phosphatase Troponin T C-Reactive Protein Total Protein Albumin Triglycerides HDL Cholesterol Lipase Vitamin B12 TSH Urine WBC (Auto) Urine Chloride Urine Total Protein Vancomycin Trough Crossmatch 11/24/16 11/24/16 11/24/16 04:50 04:50 06:08 WBC RBC 2.74 L Hgb 8.4 L Hct 26.1 L MCV RDW 16.0 H Plt Count Lymph % (Auto) [place] % (Auto) [place] # Seg Neutrophils % Seg Neuts % (Manual) Lymphocytes % (Manual) Monocytes % (Manual) Basophils % (Manual) Nucleated RBC % Seg Neutrophils # Seg Neutrophils # Man Lymphocytes # (Manual) Monocytes # (Manual) Eosinophils # (Manual) Basophils # (Manual) PT INR APTT Heparin Anti-Xa Level POC ABG pH POC ABG pCO2 POC ABG pO2 Sodium 133 L Potassium Chloride Carbon Dioxide 19 L BUN 23 H Creatinine Glucose 200 H POC Glucose 187 H Calcium 7.2 L Phosphorus Magnesium AST Alkaline Phosphatase Troponin T C-Reactive Protein Total Protein Albumin Triglycerides HDL Cholesterol Lipase Vitamin B12 TSH Urine WBC (Auto) Urine Chloride Urine Total Protein Vancomycin Trough Crossmatch 11/24/16 11/24/16 11/24/16 12:02 17:43 23:35 WBC RBC Hgb Hct MCV RDW Plt Count Lymph % (Auto) [place] % (Auto) [place] # Seg Neutrophils % Seg Neuts % (Manual) Lymphocytes % (Manual) Monocytes % (Manual) Basophils % (Manual) Nucleated RBC % Seg Neutrophils # Seg Neutrophils # Man Lymphocytes # (Manual) Monocytes # (Manual) Eosinophils # (Manual) Basophils # (Manual) PT INR APTT Heparin Anti-Xa Level POC ABG pH POC ABG pCO2 POC ABG pO2 Sodium Potassium Chloride Carbon Dioxide BUN Creatinine Glucose POC Glucose 250 H 226 H 230 H Calcium Phosphorus Magnesium AST Alkaline Phosphatase Troponin T C-Reactive Protein Total Protein Albumin Triglycerides HDL Cholesterol Lipase Vitamin B12 TSH Urine WBC (Auto) Urine Chloride Urine Total Protein Vancomycin Trough Crossmatch 11/25/16 11/25/16 11/25/16 05:47 11:37 18:00 WBC RBC Hgb Hct MCV RDW Plt Count Lymph % (Auto) [place] % (Auto) [place] # Seg Neutrophils % Seg Neuts % (Manual) Lymphocytes % (Manual) Monocytes % (Manual) Basophils % (Manual) Nucleated RBC % Seg Neutrophils # Seg Neutrophils # Man Lymphocytes # (Manual) Monocytes # (Manual) Eosinophils # (Manual) Basophils # (Manual) PT INR APTT Heparin Anti-Xa Level POC ABG pH POC ABG pCO2 POC ABG pO2 Sodium Potassium Chloride Carbon Dioxide BUN Creatinine Glucose POC Glucose 229 H 226 H 226 H Calcium Phosphorus Magnesium AST Alkaline Phosphatase Troponin T C-Reactive Protein Total Protein Albumin Triglycerides HDL Cholesterol Lipase Vitamin B12 TSH Urine WBC (Auto) Urine Chloride Urine Total Protein Vancomycin Trough Crossmatch 11/26/16 11/26/16 11/26/16 05:43 12:05 17:05 WBC RBC Hgb Hct MCV RDW Plt Count Lymph % (Auto) [place] % (Auto) [place] # Seg Neutrophils % Seg Neuts % (Manual) Lymphocytes % (Manual) Monocytes % (Manual) Basophils % (Manual) Nucleated RBC % Seg Neutrophils # Seg Neutrophils # Man Lymphocytes # (Manual) Monocytes # (Manual) Eosinophils # (Manual) Basophils # (Manual) PT INR APTT Heparin Anti-Xa Level POC ABG pH POC ABG pCO2 POC ABG pO2 Sodium Potassium Chloride Carbon Dioxide BUN Creatinine Glucose POC Glucose 262 H 260 H 193 H Calcium Phosphorus Magnesium AST Alkaline Phosphatase Troponin T C-Reactive Protein Total Protein Albumin Triglycerides HDL Cholesterol Lipase Vitamin B12 TSH Urine WBC (Auto) Urine Chloride Urine Total Protein Vancomycin Trough Crossmatch 11/26/16 11/27/16 11/27/16 23:46 05:49 12:36 WBC RBC Hgb Hct MCV RDW Plt Count Lymph % (Auto) [place] % (Auto) [place] # Seg Neutrophils % Seg Neuts % (Manual) Lymphocytes % (Manual) Monocytes % (Manual) Basophils % (Manual) Nucleated RBC % Seg Neutrophils # Seg Neutrophils # Man Lymphocytes # (Manual) Monocytes # (Manual) Eosinophils # (Manual) Basophils # (Manual) PT INR APTT Heparin Anti-Xa Level POC ABG pH POC ABG pCO2 POC ABG pO2 Sodium Potassium Chloride Carbon Dioxide BUN Creatinine Glucose POC Glucose 183 H 182 H 250 H Calcium Phosphorus Magnesium AST Alkaline Phosphatase Troponin T C-Reactive Protein Total Protein Albumin Triglycerides HDL Cholesterol Lipase Vitamin B12 TSH Urine WBC (Auto) Urine Chloride Urine Total Protein Vancomycin Trough Crossmatch 11/27/16 11/27/16 11/27/16 17:02 17:45 22:42 WBC RBC Hgb Hct MCV RDW Plt Count Lymph % (Auto) [place] % (Auto) [place] # Seg Neutrophils % Seg Neuts % (Manual) Lymphocytes % (Manual) Monocytes % (Manual) Basophils % (Manual) Nucleated RBC % Seg Neutrophils # Seg Neutrophils # Man Lymphocytes # (Manual) Monocytes # (Manual) Eosinophils # (Manual) Basophils # (Manual) PT INR APTT Heparin Anti-Xa Level POC ABG pH 7.331 L POC ABG pCO2 POC ABG pO2 46 L Sodium Potassium Chloride Carbon Dioxide BUN Creatinine Glucose POC Glucose 275 H Calcium Phosphorus Magnesium AST Alkaline Phosphatase Troponin T 0.093 H C-Reactive Protein Total Protein Albumin Triglycerides HDL Cholesterol Lipase Vitamin B12 TSH Urine WBC (Auto) Urine Chloride Urine Total Protein Vancomycin Trough Crossmatch 11/27/16 11/28/16 11/28/16 23:28 05:46 05:46 WBC RBC 2.88 L Hgb 8.9 L Hct 27.7 L MCV RDW 17.2 H Plt Count Lymph % (Auto) [place] % (Auto) [place] # Seg Neutrophils % Seg Neuts % (Manual) Lymphocytes % (Manual) Monocytes % (Manual) Basophils % (Manual) Nucleated RBC % Seg Neutrophils # Seg Neutrophils # Man Lymphocytes # (Manual) Monocytes # (Manual) Eosinophils # (Manual) Basophils # (Manual) PT 15.1 H INR 1.20 H APTT Heparin Anti-Xa Level POC ABG pH POC ABG pCO2 POC ABG pO2 Sodium Potassium Chloride Carbon Dioxide BUN Creatinine Glucose POC Glucose 237 H Calcium Phosphorus Magnesium AST Alkaline Phosphatase Troponin T C-Reactive Protein Total Protein Albumin Triglycerides HDL Cholesterol Lipase Vitamin B12 TSH Urine WBC (Auto) Urine Chloride Urine Total Protein Vancomycin Trough Crossmatch 11/28/16 11/28/16 11/28/16 05:46 05:46 05:56 WBC RBC Hgb Hct MCV RDW Plt Count Lymph % (Auto) [place] % (Auto) [place] # Seg Neutrophils % Seg Neuts % (Manual) Lymphocytes % (Manual) Monocytes % (Manual) Basophils % (Manual) Nucleated RBC % Seg Neutrophils # Seg Neutrophils # Man Lymphocytes # (Manual) Monocytes # (Manual) Eosinophils # (Manual) Basophils # (Manual) PT INR APTT Heparin Anti-Xa Level POC ABG pH POC ABG pCO2 POC ABG pO2 Sodium Potassium Chloride Carbon Dioxide 21 L BUN 27 H Creatinine Glucose 237 H POC Glucose 275 H Calcium 8.1 L Phosphorus Magnesium AST Alkaline Phosphatase Troponin T 0.090 H C-Reactive Protein Total Protein Albumin Triglycerides 154 H HDL Cholesterol 38 L Lipase Vitamin B12 TSH Urine WBC (Auto) Urine Chloride Urine Total Protein Vancomycin Trough Crossmatch 11/28/16 11/28/16 11/28/16 11:20 18:16 23:30 WBC RBC Hgb Hct MCV RDW Plt Count Lymph % (Auto) [place] % (Auto) [place] # Seg Neutrophils % Seg Neuts % (Manual) Lymphocytes % (Manual) Monocytes % (Manual) Basophils % (Manual) Nucleated RBC % Seg Neutrophils # Seg Neutrophils # Man Lymphocytes # (Manual) Monocytes # (Manual) Eosinophils # (Manual) Basophils # (Manual) PT INR APTT Heparin Anti-Xa Level POC ABG pH POC ABG pCO2 POC ABG pO2 Sodium Potassium Chloride Carbon Dioxide BUN Creatinine Glucose POC Glucose 277 H 222 H 143 H Calcium Phosphorus Magnesium AST Alkaline Phosphatase Troponin T C-Reactive Protein Total Protein Albumin Triglycerides HDL Cholesterol Lipase Vitamin B12 TSH Urine WBC (Auto) Urine Chloride Urine Total Protein Vancomycin Trough Crossmatch 11/29/16 11/29/16 11/29/16 04:46 05:42 12:10 WBC RBC Hgb Hct MCV RDW Plt Count Lymph % (Auto) [place] % (Auto) [place] # Seg Neutrophils % Seg Neuts % (Manual) Lymphocytes % (Manual) Monocytes % (Manual) Basophils % (Manual) Nucleated RBC % Seg Neutrophils # Seg Neutrophils # Man Lymphocytes # (Manual) Monocytes # (Manual) Eosinophils # (Manual) Basophils # (Manual) PT 16.7 H INR 1.36 H APTT Heparin Anti-Xa Level POC ABG pH POC ABG pCO2 POC ABG pO2 Sodium Potassium Chloride Carbon Dioxide BUN Creatinine Glucose POC Glucose 165 H 232 H Calcium Phosphorus Magnesium AST Alkaline Phosphatase Troponin T C-Reactive Protein Total Protein Albumin Triglycerides HDL Cholesterol Lipase Vitamin B12 TSH Urine WBC (Auto) Urine Chloride Urine Total Protein Vancomycin Trough Crossmatch 11/29/16 11/30/16 11/30/16 18:09 00:04 05:04 WBC RBC Hgb Hct MCV RDW Plt Count Lymph % (Auto) [place] % (Auto) [place] # Seg Neutrophils % Seg Neuts % (Manual) Lymphocytes % (Manual) Monocytes % (Manual) Basophils % (Manual) Nucleated RBC % Seg Neutrophils # Seg Neutrophils # Man Lymphocytes # (Manual) Monocytes # (Manual) Eosinophils # (Manual) Basophils # (Manual) PT 17.8 H INR 1.47 H APTT Heparin Anti-Xa Level POC ABG pH POC ABG pCO2 POC ABG pO2 Sodium Potassium Chloride Carbon Dioxide BUN Creatinine Glucose POC Glucose 214 H 110 H Calcium Phosphorus Magnesium AST Alkaline Phosphatase Troponin T C-Reactive Protein Total Protein Albumin Triglycerides HDL Cholesterol Lipase Vitamin B12 TSH Urine WBC (Auto) Urine Chloride Urine Total Protein Vancomycin Trough Crossmatch 11/30/16 11/30/16 05:46 11:59 WBC RBC Hgb Hct MCV RDW Plt Count Lymph % (Auto) [place] % (Auto) [place] # Seg Neutrophils % Seg Neuts % (Manual) Lymphocytes % (Manual) Monocytes % (Manual) Basophils % (Manual) Nucleated RBC % Seg Neutrophils # Seg Neutrophils # Man Lymphocytes # (Manual) Monocytes # (Manual) Eosinophils # (Manual) Basophils # (Manual) PT INR APTT Heparin Anti-Xa Level POC ABG pH POC ABG pCO2 POC ABG pO2 Sodium Potassium Chloride Carbon Dioxide BUN Creatinine Glucose POC Glucose 118 H 163 H Calcium Phosphorus Magnesium AST Alkaline Phosphatase Troponin T C-Reactive Protein Total Protein Albumin Triglycerides HDL Cholesterol Lipase Vitamin B12 TSH Urine WBC (Auto) Urine Chloride Urine Total Protein Vancomycin Trough Crossmatch Allied health notes reviewed: RT
[2016-11-30] MEDS: COUMADIN PO SCH (18:23)
[2016-12-01] MEDS: DILANTIN IV SCH ×3 (05:51→21:42)
[2016-12-01 07:47] LABS: INR 1.66 (0.87-1.13)
[2016-12-01] MEDS: LOPRESSOR PO SCH ×3 (08:17→21:42)
[2016-12-01] MEDS: ZESTRIL PO SCH (09:42)
[2016-12-01] MEDS: LOVENOX SUB-Q SCH ×2 (09:42→21:43)
[2016-12-01] MEDS: PEPCID PO SCH ×2 (09:42→21:43)
[2016-12-01] MEDS: PLAVIX PO SCH (09:42)
[2016-12-01] MEDS: LEVEMIR SUB-Q SCH (09:43)
--- NOTE | 2016-12-01 11:07 | Progress Note ---
Assessment and Plan - Patient Problems (1) Acute respiratory failure with hypercapnia Current Visit: Yes Status: Acute Plan to address problem: Continue with mechanical ventilatory support. Weaning/Spontaneous breathing trials as tolerated VAP bundle Critical bundles addressed Agitation management HOB >40, aspiration precautions VTE/Stress ulcer prophylaxis Glycemic control (2) DKA (diabetic ketoacidoses) Current Visit: Yes Status: Acute Qualifiers: Diabetes mellitus type: D Diabetes mellitus complication detail: D (3) Altered mental status Current Visit: Yes Status: Acute Qualifiers: Altered mental status type: A Coma depth: C Coma timing: C Plan to address problem: Toxic, metabolic, anoxia. Continue to monitor (4) Acidosis Current Visit: Yes Status: Acute Plan to address problem: Improving (5) Acute on chronic renal failure Current Visit: Yes Status: Acute (6) Sepsis Current Visit: Yes Status: Acute Qualifiers: Sepsis type: S Plan to address problem: Resolving (7) DVT (deep venous thrombosis) Current Visit: Yes Status: Acute Qualifiers: DVT location: upper extremity Affected thrombotic vein of extremity: A Laterality: L Chronicity: C Plan to address problem: On coumadin with lovenox bridge. Monitor for bleeding. Will need anticoagulation for 3 months (8) Discharge planning issues Current Visit: Yes Status: Acute Plan to address problem: Discussed discharge care plan with the case management in the critical care unit. updated at the bedside. 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 Subjective Date of service: 12/01/16 Principal diagnosis: respiratory failure on mechanical ventilatory support, DKA Interval history: Patient seen and examined. Vitals, labs, medications, chart reviewed On-going encephalopathy and agitation s/p tracheostomy at the bedside. No acute overnight events reported, reviewed 24 hour events and discussed with the RN and RT. Tolerating SBT/PSV but requires PS 20 to generate tidal volumes of 300 Objective Vital Signs - 12hr 11/30/16 12/01/16 12/01/16 23:30 00:00 00:30 Temperature 100 F H Pulse Rate 78 78 80 Pulse Rate [ 80 From Monitor] Respiratory 20 22 30 H Rate Blood Pressure 144/59 147/61 141/59 O2 Sat by Pulse 100 100 100 Oximetry O2 Sat by Pulse Oximetry [ Assessment] 12/01/16 12/01/16 12/01/16 00:43 01:00 01:30 Temperature Pulse Rate 82 80 80 Pulse Rate [ From Monitor] Respiratory 20 26 H Rate Blood Pressure 139/75 148/59 146/58 O2 Sat by Pulse 100 100 100 Oximetry O2 Sat by Pulse Oximetry [ Assessment] 12/01/16 12/01/16 12/01/16 02:00 02:30 03:00 Temperature Pulse Rate 80 80 81 Pulse Rate [ From Monitor] Respiratory 32 H 28 H 20 Rate Blood Pressure 146/60 148/63 153/63 O2 Sat by Pulse 100 100 100 Oximetry O2 Sat by Pulse Oximetry [ Assessment] 12/01/16 12/01/16 12/01/16 03:30 04:00 04:30 Temperature 99.8 F H Pulse Rate 81 82 82 Pulse Rate [ 82 From Monitor] Respiratory 19 22 23 Rate Blood Pressure 147/60 156/64 150/63 O2 Sat by Pulse 100 100 100 Oximetry O2 Sat by Pulse Oximetry [ Assessment] 12/01/16 12/01/16 12/01/16 05:00 05:30 06:00 Temperature Pulse Rate 83 81 77 Pulse Rate [ From Monitor] Respiratory 21 22 18 Rate Blood Pressure 156/64 149/60 136/54 O2 Sat by Pulse 100 100 100 Oximetry O2 Sat by Pulse Oximetry [ Assessment] 12/01/16 12/01/16 12/01/16 06:30 07:00 07:10 Temperature Pulse Rate 79 77 85 Pulse Rate [ From Monitor] Respiratory 17 19 Rate Blood Pressure 145/59 146/57 140/55 O2 Sat by Pulse 100 100 98 Oximetry O2 Sat by Pulse Oximetry [ Assessment] 12/01/16 12/01/16 12/01/16 07:15 07:30 08:00 Temperature 99.3 F Pulse Rate 83 83 Pulse Rate [ From Monitor] Respiratory 26 H 26 H Rate Blood Pressure 157/72 147/62 O2 Sat by Pulse 100 100 Oximetry O2 Sat by Pulse 98 Oximetry [ Assessment] 12/01/16 12/01/16 12/01/16 08:17 08:30 09:00 Temperature Pulse Rate 81 81 75 Pulse Rate [ From Monitor] Respiratory 22 16 Rate Blood Pressure 140/58 144/61 140/59 O2 Sat by Pulse 100 100 Oximetry O2 Sat by Pulse Oximetry [ Assessment] 12/01/16 12/01/16 12/01/16 09:30 09:42 09:50 Temperature Pulse Rate 76 76 Pulse Rate [ From Monitor] Respiratory 29 H 32 H Rate Blood Pressure 139/57 139/57 O2 Sat by Pulse 100 98 Oximetry O2 Sat by Pulse Oximetry [ Assessment] 12/01/16 12/01/16 10:00 10:30 Temperature Pulse Rate 77 80 Pulse Rate [ From Monitor] Respiratory 32 H 31 H Rate Blood Pressure 137/53 149/67 O2 Sat by Pulse 100 100 Oximetry O2 Sat by Pulse Oximetry [ Assessment] Constitutional: no acute distress, lethargic, appears uncomfortable, other ( Patient likely has anoxic encephalopathy, s/p trach to vent) Eyes: non-icteric ENT: oropharynx moist Neck: supple, no lymphadenopathy, no JVD Effort: normal, mildly labored Ascultation: Bilateral: clear, diminished breath sounds, rales, other (coarse breath sounds bilaterally) Cardiovascular: regular rate and rhythm, other (S1,S2, No murmurs) Gastrointestinal: normoactive bowel sounds, soft, non-distended, other ( Gastrostomy tube) Integumentary: normal Extremities: no cyanosis, no edema, no ischemia or petechiae, other (s/p right BKA. right UExt Edema) Neurologic: unable to assess, other (encephalopathic) Psychiatric: other (encephalopathic) CBC and BMP: 11/28/16 05:46 11/28/16 05:46 ABG, PT/INR, D-dimer: ABG POC ABG pH 7.331 (7.35-7.45) L 11/27/16 17:45 POC ABG pCO2 38.1 (35-45) 11/27/16 17:45 POC ABG pO2 46 (80-105) L 11/27/16 17:45 POC ABG HCO3 20.1 11/27/16 17:45 POC ABG Total CO2 21 11/27/16 17:45 POC ABG O2 Sat 79 11/27/16 17:45 PT/INR, D-dimer PT 19.6 Sec. (12.2-14.9) H 12/01/16 07:25 INR 1.66 (0.87-1.13) H 12/01/16 07:25 Abnormal lab findings: Abnormal Labs 10/13/16 10/13/16 10/13/16 06:38 06:38 07:23 WBC RBC Hgb Hct MCV RDW Plt Count Lymph % (Auto) Smyth % (Auto) Smyth # Seg Neutrophils % Seg Neuts % (Manual) Lymphocytes % (Manual) Monocytes % (Manual) Basophils % (Manual) Nucleated RBC % Seg Neutrophils # Seg Neutrophils # Man Lymphocytes # (Manual) Monocytes # (Manual) Eosinophils # (Manual) Basophils # (Manual) PT INR APTT Heparin Anti-Xa Level POC ABG pH POC ABG pCO2 POC ABG pO2 Sodium Potassium 6.2 H* Chloride Carbon Dioxide 8 L* BUN 85 H Creatinine 2.8 H Glucose 602 H* POC Glucose 495 H Calcium 7.9 L Phosphorus 6.9 H D Magnesium 3.0 H AST Alkaline Phosphatase Troponin T C-Reactive Protein Total Protein Albumin Triglycerides HDL Cholesterol Lipase Vitamin B12 TSH Urine WBC (Auto) Urine Chloride Urine Total Protein Vancomycin Trough Crossmatch 10/13/16 10/13/16 10/13/16 08:49 08:55 10:12 WBC RBC Hgb Hct MCV RDW Plt Count Lymph % (Auto) Smyth % (Auto) Smyth # Seg Neutrophils % Seg Neuts % (Manual) Lymphocytes % (Manual) Monocytes % (Manual) Basophils % (Manual) Nucleated RBC % Seg Neutrophils # Seg Neutrophils # Man Lymphocytes # (Manual) Monocytes # (Manual) Eosinophils # (Manual) Basophils # (Manual) PT INR APTT Heparin Anti-Xa Level POC ABG pH POC ABG pCO2 POC ABG pO2 Sodium Potassium 5.6 H Chloride Carbon Dioxide 11 L BUN 77 H Creatinine 2.7 H Glucose 457 H POC Glucose > 500 H 424 H Calcium 8.0 L Phosphorus Magnesium AST Alkaline Phosphatase Troponin T C-Reactive Protein Total Protein Albumin Triglycerides HDL Cholesterol Lipase Vitamin B12 TSH Urine WBC (Auto) Urine Chloride Urine Total Protein Vancomycin Trough Crossmatch 10/13/16 10/13/16 10/13/16 10:44 11:22 12:20 WBC RBC Hgb Hct MCV RDW Plt Count Lymph % (Auto) Smyth % (Auto) Smyth # Seg Neutrophils % Seg Neuts % (Manual) Lymphocytes % (Manual) Monocytes % (Manual) Basophils % (Manual) Nucleated RBC % Seg Neutrophils # Seg Neutrophils # Man Lymphocytes # (Manual) Monocytes # (Manual) Eosinophils # (Manual) Basophils # (Manual) PT INR APTT Heparin Anti-Xa Level POC ABG pH POC ABG pCO2 POC ABG pO2 Sodium Potassium 5.4 H Chloride Carbon Dioxide 14 L BUN 72 H Creatinine 2.6 H Glucose 383 H POC Glucose 391 H 313 H Calcium 8.2 L Phosphorus Magnesium AST Alkaline Phosphatase Troponin T C-Reactive Protein Total Protein Albumin Triglycerides HDL Cholesterol Lipase Vitamin B12 TSH Urine WBC (Auto) Urine Chloride Urine Total Protein Vancomycin Trough Crossmatch 10/13/16 10/13/16 10/13/16 13:32 14:44 15:57 WBC RBC Hgb Hct MCV RDW Plt Count Lymph % (Auto) Smyth % (Auto) Smyth # Seg Neutrophils % Seg Neuts % (Manual) Lymphocytes % (Manual) Monocytes % (Manual) Basophils % (Manual) Nucleated RBC % Seg Neutrophils # Seg Neutrophils # Man Lymphocytes # (Manual) Monocytes # (Manual) Eosinophils # (Manual) Basophils # (Manual) PT INR APTT Heparin Anti-Xa Level POC ABG pH POC ABG pCO2 POC ABG pO2 Sodium Potassium Chloride Carbon Dioxide BUN Creatinine Glucose POC Glucose 296 H 210 H 190 H Calcium Phosphorus Magnesium AST Alkaline Phosphatase Troponin T C-Reactive Protein Total Protein Albumin Triglycerides HDL Cholesterol Lipase Vitamin B12 TSH Urine WBC (Auto) Urine Chloride Urine Total Protein Vancomycin Trough Crossmatch 10/13/16 10/13/16 10/13/16 16:14 16:14 17:17 WBC RBC Hgb Hct MCV RDW Plt Count Lymph % (Auto) Smyth % (Auto) Smyth # Seg Neutrophils % Seg Neuts % (Manual) Lymphocytes % (Manual) Monocytes % (Manual) Basophils % (Manual) Nucleated RBC % Seg Neutrophils # Seg Neutrophils # Man Lymphocytes # (Manual) Monocytes # (Manual) Eosinophils # (Manual) Basophils # (Manual) PT INR APTT Heparin Anti-Xa Level POC ABG pH POC ABG pCO2 POC ABG pO2 Sodium Potassium Chloride Carbon Dioxide 17 L BUN 58 H Creatinine 1.8 H Glucose 172 H POC Glucose 193 H Calcium 7.7 L Phosphorus Magnesium AST Alkaline Phosphatase Troponin T C-Reactive Protein 10.50 H Total Protein Albumin Triglycerides HDL Cholesterol Lipase Vitamin B12 TSH Urine WBC (Auto) Urine Chloride Urine Total Protein Vancomycin Trough Crossmatch 10/13/16 10/13/16 10/13/16 17:55 18:32 19:41 WBC RBC Hgb Hct MCV RDW Plt Count Lymph % (Auto) Smyth % (Auto) Smyth # Seg Neutrophils % Seg Neuts % (Manual) Lymphocytes % (Manual) Monocytes % (Manual) Basophils % (Manual) Nucleated RBC % Seg Neutrophils # Seg Neutrophils # Man Lymphocytes # (Manual) Monocytes # (Manual) Eosinophils # (Manual) Basophils # (Manual) PT INR APTT Heparin Anti-Xa Level POC ABG pH POC ABG pCO2 30.6 L POC ABG pO2 218 H Sodium Potassium Chloride Carbon Dioxide BUN Creatinine Glucose POC Glucose 192 H 177 H Calcium Phosphorus Magnesium AST Alkaline Phosphatase Troponin T C-Reactive Protein Total Protein Albumin Triglycerides HDL Cholesterol Lipase Vitamin B12 TSH Urine WBC (Auto) Urine Chloride Urine Total Protein Vancomycin Trough Crossmatch 10/13/16 10/13/16 10/13/16 20:54 22:07 23:13 WBC RBC Hgb Hct MCV RDW Plt Count Lymph % (Auto) Smyth % (Auto) Smyth # Seg Neutrophils % Seg Neuts % (Manual) Lymphocytes % (Manual) Monocytes % (Manual) Basophils % (Manual) Nucleated RBC % Seg Neutrophils # Seg Neutrophils # Man Lymphocytes # (Manual) Monocytes # (Manual) Eosinophils # (Manual) Basophils # (Manual) PT INR APTT Heparin Anti-Xa Level POC ABG pH POC ABG pCO2 POC ABG pO2 Sodium Potassium Chloride Carbon Dioxide BUN Creatinine Glucose POC Glucose 178 H 160 H 168 H Calcium Phosphorus Magnesium AST Alkaline Phosphatase Troponin T C-Reactive Protein Total Protein Albumin Triglycerides HDL Cholesterol Lipase Vitamin B12 TSH Urine WBC (Auto) Urine Chloride Urine Total Protein Vancomycin Trough Crossmatch 10/13/16 10/13/16 10/14/16 23:25 Unknown 00:21 WBC RBC Hgb Hct MCV RDW Plt Count Lymph % (Auto) Smyth % (Auto) Smyth # Seg Neutrophils % Seg Neuts % (Manual) Lymphocytes % (Manual) Monocytes % (Manual) Basophils % (Manual) Nucleated RBC % Seg Neutrophils # Seg Neutrophils # Man Lymphocytes # (Manual) Monocytes # (Manual) Eosinophils # (Manual) Basophils # (Manual) PT INR APTT Heparin Anti-Xa Level POC ABG pH POC ABG pCO2 POC ABG pO2 Sodium 148 H Potassium Chloride 114.6 H Carbon Dioxide 17 L BUN 56 H Creatinine 1.6 H Glucose 151 H POC Glucose 171 H Calcium 7.8 L Phosphorus Magnesium AST Alkaline Phosphatase Troponin T C-Reactive Protein Total Protein Albumin Triglycerides HDL Cholesterol Lipase Vitamin B12 TSH Urine WBC (Auto) Urine Chloride 10.0 L Urine Total Protein < 4 L Vancomycin Trough Crossmatch 10/14/16 10/14/16 10/14/16 01:22 02:29 03:30 WBC RBC Hgb Hct MCV RDW Plt Count Lymph % (Auto) Smyth % (Auto) Smyth # Seg Neutrophils % Seg Neuts % (Manual) Lymphocytes % (Manual) Monocytes % (Manual) Basophils % (Manual) Nucleated RBC % Seg Neutrophils # Seg Neutrophils # Man Lymphocytes # (Manual) Monocytes # (Manual) Eosinophils # (Manual) Basophils # (Manual) PT INR APTT Heparin Anti-Xa Level POC ABG pH POC ABG pCO2 POC ABG pO2 Sodium Potassium Chloride Carbon Dioxide BUN Creatinine Glucose POC Glucose 144 H 136 H 143 H Calcium Phosphorus Magnesium AST Alkaline Phosphatase Troponin T C-Reactive Protein Total Protein Albumin Triglycerides HDL Cholesterol Lipase Vitamin B12 TSH Urine WBC (Auto) Urine Chloride Urine Total Protein Vancomycin Trough Crossmatch 10/14/16 10/14/16 10/14/16 04:28 05:16 05:44 WBC RBC Hgb Hct MCV RDW Plt Count Lymph % (Auto) Smyth % (Auto) Smyth # Seg Neutrophils % Seg Neuts % (Manual) Lymphocytes % (Manual) Monocytes % (Manual) Basophils % (Manual) Nucleated RBC % Seg Neutrophils # Seg Neutrophils # Man Lymphocytes # (Manual) Monocytes # (Manual) Eosinophils # (Manual) Basophils # (Manual) PT INR APTT Heparin Anti-Xa Level POC ABG pH POC ABG pCO2 28.2 L POC ABG pO2 125 H Sodium Potassium Chloride Carbon Dioxide BUN Creatinine Glucose POC Glucose 133 H 160 H Calcium Phosphorus Magnesium AST Alkaline Phosphatase Troponin T C-Reactive Protein Total Protein Albumin Triglycerides HDL Cholesterol Lipase Vitamin B12 TSH Urine WBC (Auto) Urine Chloride Urine Total Protein Vancomycin Trough Crossmatch 10/14/16 10/14/16 10/14/16 06:12 06:45 07:03 WBC RBC Hgb Hct MCV RDW Plt Count Lymph % (Auto) Smyth % (Auto) Smyth # Seg Neutrophils % Seg Neuts % (Manual) Lymphocytes % (Manual) Monocytes % (Manual) Basophils % (Manual) Nucleated RBC % Seg Neutrophils # Seg Neutrophils # Man Lymphocytes # (Manual) Monocytes # (Manual) Eosinophils # (Manual) Basophils # (Manual) PT INR APTT Heparin Anti-Xa Level POC ABG pH POC ABG pCO2 POC ABG pO2 Sodium 149 H Potassium Chloride 115.4 H Carbon Dioxide 17 L BUN 45 H Creatinine 1.5 H Glucose 139 H POC Glucose 149 H Calcium 7.4 L Phosphorus 1.0 L D Magnesium AST Alkaline Phosphatase Troponin T C-Reactive Protein Total Protein Albumin Triglycerides HDL Cholesterol Lipase Vitamin B12 TSH Urine WBC (Auto) Urine Chloride Urine Total Protein Vancomycin Trough Crossmatch 10/14/16 10/14/16 10/14/16 07:03 08:02 09:16 WBC RBC Hgb Hct MCV RDW Plt Count Lymph % (Auto) Smyth % (Auto) Smyth # Seg Neutrophils % Seg Neuts % (Manual) Lymphocytes % (Manual) Monocytes % (Manual) Basophils % (Manual) Nucleated RBC % Seg Neutrophils # Seg Neutrophils # Man Lymphocytes # (Manual) Monocytes # (Manual) Eosinophils # (Manual) Basophils # (Manual) PT INR APTT Heparin Anti-Xa Level POC ABG pH POC ABG pCO2 POC ABG pO2 Sodium Potassium Chloride Carbon Dioxide BUN Creatinine Glucose POC Glucose 156 H 158 H Calcium Phosphorus Magnesium AST Alkaline Phosphatase Troponin T C-Reactive Protein Total Protein Albumin Triglycerides HDL Cholesterol Lipase 738 H Vitamin B12 TSH Urine WBC (Auto) Urine Chloride Urine Total Protein Vancomycin Trough Crossmatch 10/14/16 10/14/16 10/14/16 10:26 11:03 11:57 WBC RBC Hgb Hct MCV RDW Plt Count Lymph % (Auto) Smyth % (Auto) Smyth # Seg Neutrophils % Seg Neuts % (Manual) Lymphocytes % (Manual) Monocytes % (Manual) Basophils % (Manual) Nucleated RBC % Seg Neutrophils # Seg Neutrophils # Man Lymphocytes # (Manual) Monocytes # (Manual) Eosinophils # (Manual) Basophils # (Manual) PT INR APTT Heparin Anti-Xa Level POC ABG pH 7.198 L POC ABG pCO2 47.5 H POC ABG pO2 Sodium Potassium Chloride Carbon Dioxide BUN Creatinine Glucose POC Glucose 174 H 189 H Calcium Phosphorus Magnesium AST Alkaline Phosphatase Troponin T C-Reactive Protein Total Protein Albumin Triglycerides HDL Cholesterol Lipase Vitamin B12 TSH Urine WBC (Auto) Urine Chloride Urine Total Protein Vancomycin Trough Crossmatch 10/14/16 10/14/16 10/14/16 12:02 12:02 13:11 WBC 13.4 H RBC 3.60 L Hgb Hct MCV 98 H D RDW 13.1 L Plt Count Lymph % (Auto) Smyth % (Auto) Smyth # Seg Neutrophils % Seg Neuts % (Manual) Lymphocytes % (Manual) Monocytes % (Manual) Basophils % (Manual) Nucleated RBC % Seg Neutrophils # Seg Neutrophils # Man Lymphocytes # (Manual) Monocytes # (Manual) Eosinophils # (Manual) Basophils # (Manual) PT INR APTT Heparin Anti-Xa Level POC ABG pH POC ABG pCO2 POC ABG pO2 Sodium Potassium Chloride 110.7 H Carbon Dioxide 19 L BUN 38 H Creatinine 1.4 H Glucose 182 H POC Glucose 173 H Calcium 7.5 L Phosphorus Magnesium AST Alkaline Phosphatase Troponin T C-Reactive Protein Total Protein Albumin Triglycerides HDL Cholesterol Lipase Vitamin B12 TSH Urine WBC (Auto) Urine Chloride Urine Total Protein Vancomycin Trough Crossmatch 10/14/16 10/14/16 10/14/16 14:24 15:31 16:36 WBC RBC Hgb Hct MCV RDW Plt Count Lymph % (Auto) Smyth % (Auto) Smyth # Seg Neutrophils % Seg Neuts % (Manual) Lymphocytes % (Manual) Monocytes % (Manual) Basophils % (Manual) Nucleated RBC % Seg Neutrophils # Seg Neutrophils # Man Lymphocytes # (Manual) Monocytes # (Manual) Eosinophils # (Manual) Basophils # (Manual) PT INR APTT Heparin Anti-Xa Level POC ABG pH POC ABG pCO2 POC ABG pO2 Sodium Potassium Chloride Carbon Dioxide BUN Creatinine Glucose POC Glucose 123 H 124 H 156 H Calcium Phosphorus Magnesium AST Alkaline Phosphatase Troponin T C-Reactive Protein Total Protein Albumin Triglycerides HDL Cholesterol Lipase Vitamin B12 TSH Urine WBC (Auto) Urine Chloride Urine Total Protein Vancomycin Trough Crossmatch 10/14/16 10/14/16 10/14/16 17:43 19:00 20:08 WBC RBC Hgb Hct MCV RDW Plt Count Lymph % (Auto) Smyth % (Auto) Smyth # Seg Neutrophils % Seg Neuts % (Manual) Lymphocytes % (Manual) Monocytes % (Manual) Basophils % (Manual) Nucleated RBC % Seg Neutrophils # Seg Neutrophils # Man Lymphocytes # (Manual) Monocytes # (Manual) Eosinophils # (Manual) Basophils # (Manual) PT INR APTT Heparin Anti-Xa Level POC ABG pH POC ABG pCO2 POC ABG pO2 Sodium Potassium Chloride Carbon Dioxide BUN Creatinine Glucose POC Glucose 154 H 123 H 138 H Calcium Phosphorus Magnesium AST Alkaline Phosphatase Troponin T C-Reactive Protein Total Protein Albumin Triglycerides HDL Cholesterol Lipase Vitamin B12 TSH Urine WBC (Auto) Urine Chloride Urine Total Protein Vancomycin Trough Crossmatch 10/14/16 10/14/16 10/14/16 21:17 22:25 23:37 WBC RBC Hgb Hct MCV RDW Plt Count Lymph % (Auto) Smyth % (Auto) Smyth # Seg Neutrophils % Seg Neuts % (Manual) Lymphocytes % (Manual) Monocytes % (Manual) Basophils % (Manual) Nucleated RBC % Seg Neutrophils # Seg Neutrophils # Man Lymphocytes # (Manual) Monocytes # (Manual) Eosinophils # (Manual) Basophils # (Manual) PT INR APTT Heparin Anti-Xa Level POC ABG pH POC ABG pCO2 POC ABG pO2 Sodium Potassium Chloride Carbon Dioxide BUN Creatinine Glucose POC Glucose 148 H 132 H 137 H Calcium Phosphorus Magnesium AST Alkaline Phosphatase Troponin T C-Reactive Protein Total Protein Albumin Triglycerides HDL Cholesterol Lipase Vitamin B12 TSH Urine WBC (Auto) Urine Chloride Urine Total Protein Vancomycin Trough Crossmatch 10/15/16 10/15/16 10/15/16 00:49 01:53 03:06 WBC RBC Hgb Hct MCV RDW Plt Count Lymph % (Auto) Smyth % (Auto) Smyth # Seg Neutrophils % Seg Neuts % (Manual) Lymphocytes % (Manual) Monocytes % (Manual) Basophils % (Manual) Nucleated RBC % Seg Neutrophils # Seg Neutrophils # Man Lymphocytes # (Manual) Monocytes # (Manual) Eosinophils # (Manual) Basophils # (Manual) PT INR APTT Heparin Anti-Xa Level POC ABG pH POC ABG pCO2 POC ABG pO2 Sodium Potassium Chloride Carbon Dioxide BUN Creatinine Glucose POC Glucose 132 H 134 H 134 H Calcium Phosphorus Magnesium AST Alkaline Phosphatase Troponin T C-Reactive Protein Total Protein Albumin Triglycerides HDL Cholesterol Lipase Vitamin B12 TSH Urine WBC (Auto) Urine Chloride Urine Total Protein Vancomycin Trough Crossmatch 10/15/16 10/15/16 10/15/16 04:40 04:46 06:21 WBC RBC Hgb Hct MCV RDW Plt Count Lymph % (Auto) Smyth % (Auto) Smyth # Seg Neutrophils % Seg Neuts % (Manual) Lymphocytes % (Manual) Monocytes % (Manual) Basophils % (Manual) Nucleated RBC % Seg Neutrophils # Seg Neutrophils # Man Lymphocytes # (Manual) Monocytes # (Manual) Eosinophils # (Manual) Basophils # (Manual) PT INR APTT Heparin Anti-Xa Level POC ABG pH POC ABG pCO2 30.7 L POC ABG pO2 108 H Sodium Potassium Chloride 109.0 H Carbon Dioxide 17 L BUN 27 H Creatinine Glucose 124 H POC Glucose 160 H Calcium 7.5 L Phosphorus Magnesium AST 79 H Alkaline Phosphatase Troponin T C-Reactive Protein Total Protein 5.5 L Albumin 3.0 L Triglycerides HDL Cholesterol Lipase Vitamin B12 TSH Urine WBC (Auto) Urine Chloride Urine Total Protein Vancomycin Trough Crossmatch 10/15/16 10/15/16 10/15/16 07:12 08:01 09:03 WBC RBC Hgb Hct MCV RDW Plt Count Lymph % (Auto) Smyth % (Auto) Smyth # Seg Neutrophils % Seg Neuts % (Manual) Lymphocytes % (Manual) Monocytes % (Manual) Basophils % (Manual) Nucleated RBC % Seg Neutrophils # Seg Neutrophils # Man Lymphocytes # (Manual) Monocytes # (Manual) Eosinophils # (Manual) Basophils # (Manual) PT INR APTT Heparin Anti-Xa Level POC ABG pH POC ABG pCO2 POC ABG pO2 Sodium Potassium Chloride Carbon Dioxide BUN Creatinine Glucose POC Glucose 179 H 187 H 165 H Calcium Phosphorus Magnesium AST Alkaline Phosphatase Troponin T C-Reactive Protein Total Protein Albumin Triglycerides HDL Cholesterol Lipase Vitamin B12 TSH Urine WBC (Auto) Urine Chloride Urine Total Protein Vancomycin Trough Crossmatch 10/15/16 10/15/16 10/15/16 10:06 10:06 10:07 WBC 12.1 H RBC 3.01 L Hgb 9.7 L Hct 29.6 L MCV 98 H RDW Plt Count 129 L Lymph % (Auto) Smyth % (Auto) Smyth # Seg Neutrophils % Seg Neuts % (Manual) Lymphocytes % (Manual) Monocytes % (Manual) Basophils % (Manual) Nucleated RBC % Seg Neutrophils # Seg Neutrophils # Man Lymphocytes # (Manual) Monocytes # (Manual) Eosinophils # (Manual) Basophils # (Manual) PT INR APTT Heparin Anti-Xa Level POC ABG pH POC ABG pCO2 POC ABG pO2 Sodium Potassium 3.2 L D Chloride 109.6 H Carbon Dioxide 18 L BUN 22 H Creatinine Glucose 127 H POC Glucose 147 H Calcium 7.0 L Phosphorus Magnesium AST Alkaline Phosphatase Troponin T C-Reactive Protein Total Protein Albumin Triglycerides HDL Cholesterol Lipase Vitamin B12 TSH Urine WBC (Auto) Urine Chloride Urine Total Protein Vancomycin Trough Crossmatch 10/15/16 10/15/16 10/15/16 11:05 11:06 11:57 WBC RBC Hgb Hct MCV RDW Plt Count Lymph % (Auto) Smyth % (Auto) S[place]th # Seg Neutrophils % Seg Neuts % (Manual) Lymphocytes % (Manual) Monocytes % (Manual) Basophils % (Manual) Nucleated RBC % Seg Neutrophils # Seg Neutrophils # Man Lymphocytes # (Manual) Monocytes # (Manual) Eosinophils # (Manual) Basophils # (Manual) PT INR APTT Heparin Anti-Xa Level POC ABG pH 7.305 L POC ABG pCO2 POC ABG pO2 Sodium Potassium Chloride Carbon Dioxide BUN Creatinine Glucose POC Glucose 145 H Calcium Phosphorus Magnesium AST Alkaline Phosphatase Troponin T C-Reactive Protein Total Protein Albumin Triglycerides HDL Cholesterol Lipase Vitamin B12 TSH Urine WBC (Auto) 7.0 H Urine Chloride Urine Total Protein Vancomycin Trough Crossmatch 10/15/16 10/15/16 10/15/16 12:04 13:59 15:24 WBC RBC Hgb Hct MCV RDW Plt Count Lymph % (Auto) Smyth % (Auto) S[place]th # Seg Neutrophils % Seg Neuts % (Manual) Lymphocytes % (Manual) Monocytes % (Manual) Basophils % (Manual) Nucleated RBC % Seg Neutrophils # Seg Neutrophils # Man Lymphocytes # (Manual) Monocytes # (Manual) Eosinophils # (Manual) Basophils # (Manual) PT INR APTT Heparin Anti-Xa Level POC ABG pH POC ABG pCO2 POC ABG pO2 Sodium Potassium Chloride Carbon Dioxide BUN Creatinine Glucose POC Glucose 123 H 147 H 153 H Calcium Phosphorus Magnesium AST Alkaline Phosphatase Troponin T C-Reactive Protein Total Protein Albumin Triglycerides HDL Cholesterol Lipase Vitamin B12 TSH Urine WBC (Auto) Urine Chloride Urine Total Protein Vancomycin Trough Crossmatch 10/15/16 10/15/16 10/15/16 16:30 17:34 18:30 WBC RBC Hgb Hct MCV RDW Plt Count Lymph % (Auto) Smyth % (Auto) S[place]th # Seg Neutrophils % Seg Neuts % (Manual) Lymphocytes % (Manual) Monocytes % (Manual) Basophils % (Manual) Nucleated RBC % Seg Neutrophils # Seg Neutrophils # Man Lymphocytes # (Manual) Monocytes # (Manual) Eosinophils # (Manual) Basophils # (Manual) PT INR APTT Heparin Anti-Xa Level POC ABG pH POC ABG pCO2 POC ABG pO2 Sodium Potassium Chloride Carbon Dioxide BUN Creatinine Glucose POC Glucose 223 H 236 H 164 H Calcium Phosphorus Magnesium AST Alkaline Phosphatase Troponin T C-Reactive Protein Total Protein Albumin Triglycerides HDL Cholesterol Lipase Vitamin B12 TSH Urine WBC (Auto) Urine Chloride Urine Total Protein Vancomycin Trough Crossmatch 10/15/16 10/15/16 10/15/16 19:14 20:31 21:23 WBC RBC Hgb Hct MCV RDW Plt Count Lymph % (Auto) [place]th % (Auto) [place]th # Seg Neutrophils % Seg Neuts % (Manual) Lymphocytes % (Manual) Monocytes % (Manual) Basophils % (Manual) Nucleated RBC % Seg Neutrophils # Seg Neutrophils # Man Lymphocytes # (Manual) Monocytes # (Manual) Eosinophils # (Manual) Basophils # (Manual) PT INR APTT Heparin Anti-Xa Level POC ABG pH POC ABG pCO2 POC ABG pO2 Sodium Potassium Chloride Carbon Dioxide BUN Creatinine Glucose POC Glucose 138 H 158 H 158 H Calcium Phosphorus Magnesium AST Alkaline Phosphatase Troponin T C-Reactive Protein Total Protein Albumin Triglycerides HDL Cholesterol Lipase Vitamin B12 TSH Urine WBC (Auto) Urine Chloride Urine Total Protein Vancomycin Trough Crossmatch 10/15/16 10/15/16 10/16/16 22:04 22:57 00:11 WBC RBC Hgb Hct MCV RDW Plt Count Lymph % (Auto) [place]th % (Auto) [place]th # Seg Neutrophils % Seg Neuts % (Manual) Lymphocytes % (Manual) Monocytes % (Manual) Basophils % (Manual) Nucleated RBC % Seg Neutrophils # Seg Neutrophils # Man Lymphocytes # (Manual) Monocytes # (Manual) Eosinophils # (Manual) Basophils # (Manual) PT INR APTT Heparin Anti-Xa Level POC ABG pH POC ABG pCO2 POC ABG pO2 Sodium Potassium Chloride Carbon Dioxide BUN Creatinine Glucose POC Glucose 168 H 213 H 166 H Calcium Phosphorus Magnesium AST Alkaline Phosphatase Troponin T C-Reactive Protein Total Protein Albumin Triglycerides HDL Cholesterol Lipase Vitamin B12 TSH Urine WBC (Auto) Urine Chloride Urine Total Protein Vancomycin Trough Crossmatch 10/16/16 10/16/16 10/16/16 01:16 02:32 03:38 WBC RBC Hgb Hct MCV RDW Plt Count Lymph % (Auto) [place]th % (Auto) [place]th # Seg Neutrophils % Seg Neuts % (Manual) Lymphocytes % (Manual) Monocytes % (Manual) Basophils % (Manual) Nucleated RBC % Seg Neutrophils # Seg Neutrophils # Man Lymphocytes # (Manual) Monocytes # (Manual) Eosinophils # (Manual) Basophils # (Manual) PT INR APTT Heparin Anti-Xa Level POC ABG pH POC ABG pCO2 POC ABG pO2 Sodium Potassium Chloride Carbon Dioxide BUN Creatinine Glucose POC Glucose 171 H 164 H 147 H Calcium Phosphorus Magnesium AST Alkaline Phosphatase Troponin T C-Reactive Protein Total Protein Albumin Triglycerides HDL Cholesterol Lipase Vitamin B12 TSH Urine WBC (Auto) Urine Chloride Urine Total Protein Vancomycin Trough Crossmatch 10/16/16 10/16/16 10/16/16 04:14 04:14 04:49 WBC RBC Hgb Hct MCV RDW Plt Count Lymph % (Auto) [place]th % (Auto) [place]th # Seg Neutrophils % Seg Neuts % (Manual) Lymphocytes % (Manual) Monocytes % (Manual) Basophils % (Manual) Nucleated RBC % Seg Neutrophils # Seg Neutrophils # Man Lymphocytes # (Manual) Monocytes # (Manual) Eosinophils # (Manual) Basophils # (Manual) PT INR APTT Heparin Anti-Xa Level POC ABG pH POC ABG pCO2 POC ABG pO2 Sodium 147 H Potassium Chloride 110.9 H Carbon Dioxide 19 L BUN Creatinine Glucose 139 H POC Glucose 144 H Calcium 7.3 L Phosphorus 2.3 L Magnesium AST Alkaline Phosphatase Troponin T C-Reactive Protein Total Protein Albumin Triglycerides HDL Cholesterol Lipase 143 H Vitamin B12 TSH Urine WBC (Auto) Urine Chloride Urine Total Protein Vancomycin Trough Crossmatch 10/16/16 10/16/16 10/16/16 05:03 05:41 05:58 WBC 16.5 H RBC 3.36 L Hgb Hct MCV 98 H RDW 13.1 L Plt Count Lymph % (Auto) 8.5 L Smyth % (Auto) 7.6 H Smyth # 1.3 H Seg Neutrophils % 83.3 H Seg Neuts % (Manual) Lymphocytes % (Manual) Monocytes % (Manual) Basophils % (Manual) Nucleated RBC % Seg Neutrophils # 13.8 H Seg Neutrophils # Man Lymphocytes # (Manual) Monocytes # (Manual) Eosinophils # (Manual) Basophils # (Manual) PT INR APTT Heparin Anti-Xa Level POC ABG pH POC ABG pCO2 30.7 L POC ABG pO2 128 H Sodium Potassium Chloride Carbon Dioxide BUN Creatinine Glucose POC Glucose 131 H Calcium Phosphorus Magnesium AST Alkaline Phosphatase Troponin T C-Reactive Protein Total Protein Albumin Triglycerides HDL Cholesterol Lipase Vitamin B12 TSH Urine WBC (Auto) Urine Chloride Urine Total Protein Vancomycin Trough Crossmatch 10/16/16 10/16/16 10/16/16 06:32 09:27 09:35 WBC RBC Hgb Hct MCV RDW Plt Count Lymph % (Auto) [place]th % (Auto) [place]th # Seg Neutrophils % Seg Neuts % (Manual) Lymphocytes % (Manual) Monocytes % (Manual) Basophils % (Manual) Nucleated RBC % Seg Neutrophils # Seg Neutrophils # Man Lymphocytes # (Manual) Monocytes # (Manual) Eosinophils # (Manual) Basophils # (Manual) PT INR APTT Heparin Anti-Xa Level POC ABG pH POC ABG pCO2 32.8 L POC ABG pO2 137 H Sodium Potassium Chloride Carbon Dioxide BUN Creatinine Glucose POC Glucose 121 H 150 H Calcium Phosphorus Magnesium AST Alkaline Phosphatase Troponin T C-Reactive Protein Total Protein Albumin Triglycerides HDL Cholesterol Lipase Vitamin B12 TSH Urine WBC (Auto) Urine Chloride Urine Total Protein Vancomycin Trough Crossmatch 10/16/16 10/16/16 10/16/16 10:47 13:27 14:24 WBC RBC Hgb Hct MCV RDW Plt Count Lymph % (Auto) [place]th % (Auto) [place]th # Seg Neutrophils % Seg Neuts % (Manual) Lymphocytes % (Manual) Monocytes % (Manual) Basophils % (Manual) Nucleated RBC % Seg Neutrophils # Seg Neutrophils # Man Lymphocytes # (Manual) Monocytes # (Manual) Eosinophils # (Manual) Basophils # (Manual) PT INR APTT Heparin Anti-Xa Level POC ABG pH POC ABG pCO2 POC ABG pO2 Sodium Potassium Chloride Carbon Dioxide BUN Creatinine Glucose POC Glucose 184 H 171 H 174 H Calcium Phosphorus Magnesium AST Alkaline Phosphatase Troponin T C-Reactive Protein Total Protein Albumin Triglycerides HDL Cholesterol Lipase Vitamin B12 TSH Urine WBC (Auto) Urine Chloride Urine Total Protein Vancomycin Trough Crossmatch 10/16/16 10/16/16 10/16/16 15:48 16:26 18:17 WBC RBC Hgb Hct MCV RDW Plt Count Lymph % (Auto) [place]th % (Auto) [place]th # Seg Neutrophils % Seg Neuts % (Manual) Lymphocytes % (Manual) Monocytes % (Manual) Basophils % (Manual) Nucleated RBC % Seg Neutrophils # Seg Neutrophils # Man Lymphocytes # (Manual) Monocytes # (Manual) Eosinophils # (Manual) Basophils # (Manual) PT INR APTT Heparin Anti-Xa Level POC ABG pH POC ABG pCO2 POC ABG pO2 Sodium Potassium Chloride Carbon Dioxide BUN Creatinine Glucose POC Glucose 205 H 204 H 234 H Calcium Phosphorus Magnesium AST Alkaline Phosphatase Troponin T C-Reactive Protein Total Protein Albumin Triglycerides HDL Cholesterol Lipase Vitamin B12 TSH Urine WBC (Auto) Urine Chloride Urine Total Protein Vancomycin Trough Crossmatch 10/16/16 10/16/16 10/16/16 19:40 20:33 21:36 WBC RBC Hgb Hct MCV RDW Plt Count Lymph % (Auto) [place]th % (Auto) [place]th # Seg Neutrophils % Seg Neuts % (Manual) Lymphocytes % (Manual) Monocytes % (Manual) Basophils % (Manual) Nucleated RBC % Seg Neutrophils # Seg Neutrophils # Man Lymphocytes # (Manual) Monocytes # (Manual) Eosinophils # (Manual) Basophils # (Manual) PT INR APTT Heparin Anti-Xa Level POC ABG pH POC ABG pCO2 POC ABG pO2 Sodium Potassium Chloride Carbon Dioxide BUN Creatinine Glucose POC Glucose 167 H 153 H 158 H Calcium Phosphorus Magnesium AST Alkaline Phosphatase Troponin T C-Reactive Protein Total Protein Albumin Triglycerides HDL Cholesterol Lipase Vitamin B12 TSH Urine WBC (Auto) Urine Chloride Urine Total Protein Vancomycin Trough Crossmatch 10/16/16 10/16/16 10/17/16 22:54 23:48 00:47 WBC RBC Hgb Hct MCV RDW Plt Count Lymph % (Auto) [place]th % (Auto) [place]th # Seg Neutrophils % Seg Neuts % (Manual) Lymphocytes % (Manual) Monocytes % (Manual) Basophils % (Manual) Nucleated RBC % Seg Neutrophils # Seg Neutrophils # Man Lymphocytes # (Manual) Monocytes # (Manual) Eosinophils # (Manual) Basophils # (Manual) PT INR APTT Heparin Anti-Xa Level POC ABG pH POC ABG pCO2 POC ABG pO2 Sodium Potassium Chloride Carbon Dioxide BUN Creatinine Glucose POC Glucose 180 H 207 H 196 H Calcium Phosphorus Magnesium AST Alkaline Phosphatase Troponin T C-Reactive Protein Total Protein Albumin Triglycerides HDL Cholesterol Lipase Vitamin B12 TSH Urine WBC (Auto) Urine Chloride Urine Total Protein Vancomycin Trough Crossmatch 10/17/16 10/17/16 10/17/16 01:57 02:49 03:50 WBC RBC Hgb Hct MCV RDW Plt Count Lymph % (Auto) [place]th % (Auto) [place]th # Seg Neutrophils % Seg Neuts % (Manual) Lymphocytes % (Manual) Monocytes % (Manual) Basophils % (Manual) Nucleated RBC % Seg Neutrophils # Seg Neutrophils # Man Lymphocytes # (Manual) Monocytes # (Manual) Eosinophils # (Manual) Basophils # (Manual) PT INR APTT Heparin Anti-Xa Level POC ABG pH POC ABG pCO2 POC ABG pO2 Sodium Potassium Chloride Carbon Dioxide BUN Creatinine Glucose POC Glucose 180 H 151 H 106 H Calcium Phosphorus Magnesium AST Alkaline Phosphatase Troponin T C-Reactive Protein Total Protein Albumin Triglycerides HDL Cholesterol Lipase Vitamin B12 TSH Urine WBC (Auto) Urine Chloride Urine Total Protein Vancomycin Trough Crossmatch 10/17/16 10/17/16 10/17/16 04:59 06:03 06:35 WBC RBC Hgb Hct MCV RDW Plt Count Lymph % (Auto) [place]th % (Auto) [place] # Seg Neutrophils % Seg Neuts % (Manual) Lymphocytes % (Manual) Monocytes % (Manual) Basophils % (Manual) Nucleated RBC % Seg Neutrophils # Seg Neutrophils # Man Lymphocytes # (Manual) Monocytes # (Manual) Eosinophils # (Manual) Basophils # (Manual) PT INR APTT Heparin Anti-Xa Level POC ABG pH 7.453 H POC ABG pCO2 30.1 L POC ABG pO2 111 H Sodium Potassium Chloride Carbon Dioxide BUN Creatinine Glucose POC Glucose 145 H 157 H Calcium Phosphorus Magnesium AST Alkaline Phosphatase Troponin T C-Reactive Protein Total Protein Albumin Triglycerides HDL Cholesterol Lipase Vitamin B12 TSH Urine WBC (Auto) Urine Chloride Urine Total Protein Vancomycin Trough Crossmatch 10/17/16 10/17/16 10/17/16 07:08 07:11 08:01 WBC RBC Hgb Hct MCV RDW Plt Count Lymph % (Auto) [place] % (Auto) [place] # Seg Neutrophils % Seg Neuts % (Manual) Lymphocytes % (Manual) Monocytes % (Manual) Basophils % (Manual) Nucleated RBC % Seg Neutrophils # Seg Neutrophils # Man Lymphocytes # (Manual) Monocytes # (Manual) Eosinophils # (Manual) Basophils # (Manual) PT INR APTT Heparin Anti-Xa Level POC ABG pH POC ABG pCO2 POC ABG pO2 Sodium 147 H Potassium Chloride 113.8 H Carbon Dioxide 19 L BUN Creatinine Glucose 136 H POC Glucose 136 H 152 H Calcium 7.7 L Phosphorus Magnesium AST Alkaline Phosphatase Troponin T C-Reactive Protein Total Protein Albumin Triglycerides HDL Cholesterol Lipase Vitamin B12 TSH Urine WBC (Auto) Urine Chloride Urine Total Protein Vancomycin Trough Crossmatch 10/17/16 10/17/16 10/17/16 08:23 09:17 09:53 WBC 18.1 H RBC 3.01 L Hgb 9.7 L Hct 29.4 L MCV 98 H RDW Plt Count 116 L Lymph % (Auto) Smyth % (Auto) [place]th # Seg Neutrophils % Seg Neuts % (Manual) 77.0 H Lymphocytes % (Manual) 4.0 L Monocytes % (Manual) 12.0 H Basophils % (Manual) Nucleated RBC % Seg Neutrophils # Seg Neutrophils # Man 13.9 H Lymphocytes # (Manual) 0.7 L Monocytes # (Manual) 2.2 H Eosinophils # (Manual) Basophils # (Manual) PT INR APTT Heparin Anti-Xa Level POC ABG pH POC ABG pCO2 POC ABG pO2 Sodium Potassium Chloride Carbon Dioxide BUN Creatinine Glucose POC Glucose 148 H 137 H Calcium Phosphorus Magnesium AST Alkaline Phosphatase Troponin T C-Reactive Protein Total Protein Albumin Triglycerides HDL Cholesterol Lipase Vitamin B12 TSH Urine WBC (Auto) Urine Chloride Urine Total Protein Vancomycin Trough Crossmatch 10/17/16 10/17/16 10/17/16 11:43 16:07 17:42 WBC RBC Hgb Hct MCV RDW Plt Count Lymph % (Auto) [place] % (Auto) [place] # Seg Neutrophils % Seg Neuts % (Manual) Lymphocytes % (Manual) Monocytes % (Manual) Basophils % (Manual) Nucleated RBC % Seg Neutrophils # Seg Neutrophils # Man Lymphocytes # (Manual) Monocytes # (Manual) Eosinophils # (Manual) Basophils # (Manual) PT 16.4 H INR 1.33 H APTT 38.8 H Heparin Anti-Xa Level POC ABG pH POC ABG pCO2 POC ABG pO2 Sodium Potassium Chloride Carbon Dioxide BUN Creatinine Glucose POC Glucose 179 H 153 H Calcium Phosphorus Magnesium AST Alkaline Phosphatase Troponin T C-Reactive Protein Total Protein Albumin Triglycerides HDL Cholesterol Lipase Vitamin B12 TSH Urine WBC (Auto) Urine Chloride Urine Total Protein Vancomycin Trough Crossmatch 10/17/16 10/18/16 10/18/16 22:54 04:37 05:39 WBC RBC Hgb Hct MCV RDW Plt Count Lymph % (Auto) [place] % (Auto) [place] # Seg Neutrophils % Seg Neuts % (Manual) Lymphocytes % (Manual) Monocytes % (Manual) Basophils % (Manual) Nucleated RBC % Seg Neutrophils # Seg Neutrophils # Man Lymphocytes # (Manual) Monocytes # (Manual) Eosinophils # (Manual) Basophils # (Manual) PT INR APTT Heparin Anti-Xa Level 0.27 L POC ABG pH 7.454 H POC ABG pCO2 30.8 L POC ABG pO2 115 H Sodium Potassium Chloride Carbon Dioxide BUN Creatinine Glucose POC Glucose 69 L Calcium Phosphorus Magnesium AST Alkaline Phosphatase Troponin T C-Reactive Protein Total Protein Albumin Triglycerides HDL Cholesterol Lipase Vitamin B12 TSH Urine WBC (Auto) Urine Chloride Urine Total Protein Vancomycin Trough Crossmatch 10/18/16 10/18/16 10/18/16 06:46 06:46 06:46 WBC 20.5 H RBC 2.62 L Hgb 8.4 L Hct 26.0 L MCV 100 H RDW Plt Count Lymph % (Auto) [place]th % (Auto) [place]th # Seg Neutrophils % Seg Neuts % (Manual) 75.0 H Lymphocytes % (Manual) 9.0 L Monocytes % (Manual) 14.0 H Basophils % (Manual) Nucleated RBC % Seg Neutrophils # Seg Neutrophils # Man 15.4 H Lymphocytes # (Manual) Monocytes # (Manual) 2.9 H Eosinophils # (Manual) Basophils # (Manual) PT INR APTT Heparin Anti-Xa Level POC ABG pH POC ABG pCO2 POC ABG pO2 Sodium Potassium Chloride 110.6 H Carbon Dioxide BUN Creatinine 1.3 H Glucose 153 H POC Glucose Calcium 8.0 L Phosphorus Magnesium 1.6 L AST Alkaline Phosphatase Troponin T C-Reactive Protein Total Protein Albumin Triglycerides HDL Cholesterol Lipase Vitamin B12 TSH Urine WBC (Auto) Urine Chloride Urine Total Protein Vancomycin Trough Crossmatch 10/18/16 10/18/16 10/18/16 07:30 11:37 17:51 WBC RBC Hgb Hct MCV RDW Plt Count Lymph % (Auto) [place]th % (Auto) [place] # Seg Neutrophils % Seg Neuts % (Manual) Lymphocytes % (Manual) Monocytes % (Manual) Basophils % (Manual) Nucleated RBC % Seg Neutrophils # Seg Neutrophils # Man Lymphocytes # (Manual) Monocytes # (Manual) Eosinophils # (Manual) Basophils # (Manual) PT INR APTT Heparin Anti-Xa Level POC ABG pH POC ABG pCO2 POC ABG pO2 Sodium Potassium Chloride Carbon Dioxide BUN Creatinine Glucose POC Glucose 162 H 156 H 164 H Calcium Phosphorus Magnesium AST Alkaline Phosphatase Troponin T C-Reactive Protein Total Protein Albumin Triglycerides HDL Cholesterol Lipase Vitamin B12 TSH Urine WBC (Auto) Urine Chloride Urine Total Protein Vancomycin Trough Crossmatch 10/18/16 10/19/16 10/19/16 23:44 03:59 05:13 WBC 18.2 H RBC 2.76 L Hgb 9.0 L Hct 27.7 L MCV 100 H RDW Plt Count Lymph % (Auto) [place] % (Auto) [place]th # Seg Neutrophils % Seg Neuts % (Manual) 76.0 H Lymphocytes % (Manual) 10.0 L Monocytes % (Manual) Basophils % (Manual) Nucleated RBC % Seg Neutrophils # Seg Neutrophils # Man 13.8 H Lymphocytes # (Manual) Monocytes # (Manual) Eosinophils # (Manual) Basophils # (Manual) PT INR APTT Heparin Anti-Xa Level POC ABG pH POC ABG pCO2 32.2 L POC ABG pO2 128 H Sodium Potassium Chloride Carbon Dioxide BUN Creatinine Glucose POC Glucose 278 H Calcium Phosphorus Magnesium AST Alkaline Phosphatase Troponin T C-Reactive Protein Total Protein Albumin Triglycerides HDL Cholesterol Lipase Vitamin B12 TSH Urine WBC (Auto) Urine Chloride Urine Total Protein Vancomycin Trough Crossmatch 10/19/16 10/19/1610/19/17 06:01 06:30 12:20 WBC RBC Hgb Hct MCV RDW Plt Count Lymph % (Auto) [place] % (Auto) [place] # Seg Neutrophils % Seg Neuts % (Manual) Lymphocytes % (Manual) Monocytes % (Manual) Basophils % (Manual) Nucleated RBC % Seg Neutrophils # Seg Neutrophils # Man Lymphocytes # (Manual) Monocytes # (Manual) Eosinophils # (Manual) Basophils # (Manual) PT INR APTT Heparin Anti-Xa Level POC ABG pH POC ABG pCO2 POC ABG pO2 Sodium Potassium Chloride Carbon Dioxide 18 L BUN Creatinine 1.3 H Glucose 262 H POC Glucose 261 H 349 H Calcium 7.7 L Phosphorus 4.8 H D Magnesium AST Alkaline Phosphatase Troponin T C-Reactive Protein Total Protein Albumin Triglycerides HDL Cholesterol Lipase Vitamin B12 TSH Urine WBC (Auto) Urine Chloride Urine Total Protein Vancomycin Trough Crossmatch 10/19/16 10/20/16 10/20/16 16:48 00:17 05:20 WBC 22.5 H RBC 2.80 L Hgb 8.9 L Hct 28.3 L MCV 101 H RDW Plt Count Lymph % (Auto) [place] % (Auto) [place] # Seg Neutrophils % Seg Neuts % (Manual) Lymphocytes % (Manual) 10.0 L Monocytes % (Manual) Basophils % (Manual) Nucleated RBC % Seg Neutrophils # Seg Neutrophils # Man 13.3 H Lymphocytes # (Manual) Monocytes # (Manual) 1.1 H Eosinophils # (Manual) 0.7 H Basophils # (Manual) PT INR APTT Heparin Anti-Xa Level POC ABG pH POC ABG pCO2 POC ABG pO2 Sodium Potassium Chloride Carbon Dioxide BUN Creatinine Glucose POC Glucose 248 H 346 H Calcium Phosphorus Magnesium AST Alkaline Phosphatase Troponin T C-Reactive Protein Total Protein Albumin Triglycerides HDL Cholesterol Lipase Vitamin B12 TSH Urine WBC (Auto) Urine Chloride Urine Total Protein Vancomycin Trough Crossmatch 10/20/16 10/20/16 10/20/16 05:20 05:20 06:05 WBC RBC Hgb Hct MCV RDW Plt Count Lymph % (Auto) [place] % (Auto) [place] # Seg Neutrophils % Seg Neuts % (Manual) Lymphocytes % (Manual) Monocytes % (Manual) Basophils % (Manual) Nucleated RBC % Seg Neutrophils # Seg Neutrophils # Man Lymphocytes # (Manual) Monocytes # (Manual) Eosinophils # (Manual) Basophils # (Manual) PT INR APTT Heparin Anti-Xa Level 0.20 L POC ABG pH POC ABG pCO2 POC ABG pO2 Sodium Potassium Chloride Carbon Dioxide BUN 20 H Creatinine Glucose 374 H POC Glucose 337 H Calcium 8.3 L Phosphorus Magnesium AST Alkaline Phosphatase Troponin T C-Reactive Protein Total Protein Albumin Triglycerides HDL Cholesterol Lipase Vitamin B12 TSH Urine WBC (Auto) Urine Chloride Urine Total Protein Vancomycin Trough Crossmatch 10/20/16 10/20/16 10/20/16 11:49 13:59 17:56 WBC RBC Hgb Hct MCV RDW Plt Count Lymph % (Auto) [place] % (Auto) [place] # Seg Neutrophils % Seg Neuts % (Manual) Lymphocytes % (Manual) Monocytes % (Manual) Basophils % (Manual) Nucleated RBC % Seg Neutrophils # Seg Neutrophils # Man Lymphocytes # (Manual) Monocytes # (Manual) Eosinophils # (Manual) Basophils # (Manual) PT INR APTT Heparin Anti-Xa Level 2.00 H POC ABG pH POC ABG pCO2 POC ABG pO2 Sodium Potassium Chloride Carbon Dioxide BUN Creatinine Glucose POC Glucose 305 H 362 H Calcium Phosphorus Magnesium AST Alkaline Phosphatase Troponin T C-Reactive Protein Total Protein Albumin Triglycerides HDL Cholesterol Lipase Vitamin B12 TSH Urine WBC (Auto) Urine Chloride Urine Total Protein Vancomycin Trough Crossmatch 10/20/16 10/21/16 10/21/16 23:52 05:00 05:49 WBC 22.9 H RBC 2.49 L Hgb 7.7 L Hct 25.6 L MCV 103 H RDW Plt Count Lymph % (Auto) [place]th % (Auto) S[place]th # Seg Neutrophils % Seg Neuts % (Manual) 94.0 H Lymphocytes % (Manual) 1.0 L Monocytes % (Manual) Basophils % (Manual) Nucleated RBC % Seg Neutrophils # Seg Neutrophils # Man 21.5 H Lymphocytes # (Manual) 0.2 L Monocytes # (Manual) 1.1 H Eosinophils # (Manual) Basophils # (Manual) PT INR APTT Heparin Anti-Xa Level POC ABG pH POC ABG pCO2 POC ABG pO2 Sodium Potassium Chloride Carbon Dioxide BUN Creatinine Glucose POC Glucose 252 H 180 H Calcium Phosphorus Magnesium AST Alkaline Phosphatase Troponin T C-Reactive Protein Total Protein Albumin Triglycerides HDL Cholesterol Lipase Vitamin B12 TSH Urine WBC (Auto) Urine Chloride Urine Total Protein Vancomycin Trough Crossmatch 10/21/16 10/21/16 10/21/16 11:47 11:49 14:10 WBC RBC Hgb Hct MCV RDW Plt Count Lymph % (Auto) [place]th % (Auto) [place]th # Seg Neutrophils % Seg Neuts % (Manual) Lymphocytes % (Manual) Monocytes % (Manual) Basophils % (Manual) Nucleated RBC % Seg Neutrophils # Seg Neutrophils # Man Lymphocytes # (Manual) Monocytes # (Manual) Eosinophils # (Manual) Basophils # (Manual) PT INR APTT Heparin Anti-Xa Level POC ABG pH POC ABG pCO2 POC ABG pO2 Sodium Potassium Chloride Carbon Dioxide BUN Creatinine Glucose POC Glucose 50 L 56 L 140 H Calcium Phosphorus Magnesium AST Alkaline Phosphatase Troponin T C-Reactive Protein Total Protein Albumin Triglycerides HDL Cholesterol Lipase Vitamin B12 TSH Urine WBC (Auto) Urine Chloride Urine Total Protein Vancomycin Trough Crossmatch 10/21/16 10/21/16 10/22/16 18:24 Unknown 00:07 WBC RBC Hgb Hct MCV RDW Plt Count Lymph % (Auto) [place]th % (Auto) [place]th # Seg Neutrophils % Seg Neuts % (Manual) Lymphocytes % (Manual) Monocytes % (Manual) Basophils % (Manual) Nucleated RBC % Seg Neutrophils # Seg Neutrophils # Man Lymphocytes # (Manual) Monocytes # (Manual) Eosinophils # (Manual) Basophils # (Manual) PT INR APTT Heparin Anti-Xa Level POC ABG pH POC ABG pCO2 POC ABG pO2 Sodium 150 H Potassium 3.1 L Chloride 112.4 H Carbon Dioxide BUN 25 H Creatinine 1.4 H Glucose POC Glucose 175 H 218 H Calcium 8.0 L Phosphorus Magnesium AST Alkaline Phosphatase Troponin T C-Reactive Protein Total Protein Albumin Triglycerides HDL Cholesterol Lipase Vitamin B12 TSH Urine WBC (Auto) Urine Chloride Urine Total Protein Vancomycin Trough Crossmatch 10/22/16 10/22/16 10/22/16 04:20 04:20 10:25 WBC 20.8 H RBC 2.37 L Hgb 7.5 L Hct 23.9 L MCV 101 H RDW Plt Count Lymph % (Auto) [place]th % (Auto) [place]th # Seg Neutrophils % Seg Neuts % (Manual) 89.0 H Lymphocytes % (Manual) 7.0 L Monocytes % (Manual) Basophils % (Manual) Nucleated RBC % Seg Neutrophils # Seg Neutrophils # Man 18.5 H Lymphocytes # (Manual) Monocytes # (Manual) Eosinophils # (Manual) Basophils # (Manual) 0.2 H PT INR APTT Heparin Anti-Xa Level POC ABG pH POC ABG pCO2 POC ABG pO2 Sodium 148 H Potassium 2.9 L* Chloride 109.4 H Carbon Dioxide BUN 26 H Creatinine Glucose 140 H POC Glucose Calcium 7.5 L Phosphorus Magnesium AST Alkaline Phosphatase Troponin T C-Reactive Protein Total Protein Albumin Triglycerides HDL Cholesterol Lipase Vitamin B12 976.8 H TSH Urine WBC (Auto) Urine Chloride Urine Total Protein Vancomycin Trough Crossmatch 10/22/16 10/22/16 10/22/16 10:25 14:50 18:16 WBC RBC Hgb Hct MCV RDW Plt Count Lymph % (Auto) [place] % (Auto) [place] # Seg Neutrophils % Seg Neuts % (Manual) Lymphocytes % (Manual) Monocytes % (Manual) Basophils % (Manual) Nucleated RBC % Seg Neutrophils # Seg Neutrophils # Man Lymphocytes # (Manual) Monocytes # (Manual) Eosinophils # (Manual) Basophils # (Manual) PT INR APTT Heparin Anti-Xa Level POC ABG pH POC ABG pCO2 POC ABG pO2 Sodium Potassium Chloride Carbon Dioxide BUN Creatinine Glucose POC Glucose 193 H Calcium Phosphorus Magnesium AST Alkaline Phosphatase Troponin T C-Reactive Protein Total Protein Albumin Triglycerides HDL Cholesterol Lipase Vitamin B12 TSH 0.143 L 0.162 L Urine WBC (Auto) Urine Chloride Urine Total Protein Vancomycin Trough Crossmatch 10/22/16 10/22/16 10/22/16 20:00 20:00 20:00 WBC 24.1 H RBC 2.58 L Hgb 8.2 L Hct 26.4 L MCV 102 H RDW Plt Count Lymph % (Auto) [place]th % (Auto) [place]th # Seg Neutrophils % Seg Neuts % (Manual) 74.0 H Lymphocytes % (Manual) 7.0 L Monocytes % (Manual) Basophils % (Manual) Nucleated RBC % Seg Neutrophils # Seg Neutrophils # Man 17.8 H Lymphocytes # (Manual) Monocytes # (Manual) Eosinophils # (Manual) Basophils # (Manual) PT INR APTT Heparin Anti-Xa Level 1.92 H POC ABG pH POC ABG pCO2 POC ABG pO2 Sodium Potassium Chloride Carbon Dioxide BUN Creatinine Glucose POC Glucose Calcium Phosphorus Magnesium AST Alkaline Phosphatase Troponin T C-Reactive Protein Total Protein Albumin Triglycerides HDL Cholesterol Lipase Vitamin B12 TSH Urine WBC (Auto) Urine Chloride Urine Total Protein Vancomycin Trough Crossmatch See Detail 10/23/16 10/23/16 10/23/16 00:21 06:09 12:07 WBC RBC Hgb Hct MCV RDW Plt Count Lymph % (Auto) [place]th % (Auto) [place] # Seg Neutrophils % Seg Neuts % (Manual) Lymphocytes % (Manual) Monocytes % (Manual) Basophils % (Manual) Nucleated RBC % Seg Neutrophils # Seg Neutrophils # Man Lymphocytes # (Manual) Monocytes # (Manual) Eosinophils # (Manual) Basophils # (Manual) PT INR APTT Heparin Anti-Xa Level POC ABG pH POC ABG pCO2 POC ABG pO2 Sodium Potassium Chloride Carbon Dioxide BUN Creatinine Glucose POC Glucose 283 H 241 H 340 H Calcium Phosphorus Magnesium AST Alkaline Phosphatase Troponin T C-Reactive Protein Total Protein Albumin Triglycerides HDL Cholesterol Lipase Vitamin B12 TSH Urine WBC (Auto) Urine Chloride Urine Total Protein Vancomycin Trough Crossmatch 10/23/16 10/23/16 10/23/16 14:01 16:00 17:59 WBC RBC Hgb Hct MCV RDW Plt Count Lymph % (Auto) [place]th % (Auto) [place] # Seg Neutrophils % Seg Neuts % (Manual) Lymphocytes % (Manual) Monocytes % (Manual) Basophils % (Manual) Nucleated RBC % Seg Neutrophils # Seg Neutrophils # Man Lymphocytes # (Manual) Monocytes # (Manual) Eosinophils # (Manual) Basophils # (Manual) PT INR APTT Heparin Anti-Xa Level 0.19 L POC ABG pH POC ABG pCO2 32.4 L POC ABG pO2 Sodium Potassium Chloride Carbon Dioxide BUN Creatinine Glucose POC Glucose 245 H Calcium Phosphorus Magnesium AST Alkaline Phosphatase Troponin T C-Reactive Protein Total Protein Albumin Triglycerides HDL Cholesterol Lipase Vitamin B12 TSH Urine WBC (Auto) Urine Chloride Urine Total Protein Vancomycin Trough Crossmatch 10/23/16 10/23/16 10/23/16 22:55 Unknown Unknown WBC 22.6 H RBC 3.26 L Hgb Hct MCV RDW 17.1 H Plt Count Lymph % (Auto) [place] % (Auto) [place] # Seg Neutrophils % Seg Neuts % (Manual) Lymphocytes % (Manual) 11.0 L Monocytes % (Manual) Basophils % (Manual) Nucleated RBC % Seg Neutrophils # Seg Neutrophils # Man 14.0 H Lymphocytes # (Manual) Monocytes # (Manual) Eosinophils # (Manual) Basophils # (Manual) PT INR APTT Heparin Anti-Xa Level 0.17 L 0.15 L POC ABG pH POC ABG pCO2 POC ABG pO2 Sodium Potassium Chloride Carbon Dioxide BUN Creatinine Glucose POC Glucose Calcium Phosphorus Magnesium AST Alkaline Phosphatase Troponin T C-Reactive Protein Total Protein Albumin Triglycerides HDL Cholesterol Lipase Vitamin B12 TSH Urine WBC (Auto) Urine Chloride Urine Total Protein Vancomycin Trough Crossmatch 10/23/16 10/24/16 10/24/16 Unknown 00:05 05:30 WBC RBC Hgb Hct MCV RDW Plt Count Lymph % (Auto) [place] % (Auto) [place] # Seg Neutrophils % Seg Neuts % (Manual) Lymphocytes % (Manual) Monocytes % (Manual) Basophils % (Manual) Nucleated RBC % Seg Neutrophils # Seg Neutrophils # Man Lymphocytes # (Manual) Monocytes # (Manual) Eosinophils # (Manual) Basophils # (Manual) PT INR APTT Heparin Anti-Xa Level 0.13 L POC ABG pH POC ABG pCO2 POC ABG pO2 Sodium Potassium Chloride 111.2 H Carbon Dioxide 20 L BUN 25 H Creatinine Glucose 227 H POC Glucose 118 H Calcium 7.1 L Phosphorus Magnesium AST Alkaline Phosphatase Troponin T C-Reactive Protein Total Protein Albumin Triglycerides HDL Cholesterol Lipase Vitamin B12 TSH Urine WBC (Auto) Urine Chloride Urine Total Protein Vancomycin Trough Crossmatch 10/24/16 10/24/16 10/24/16 11:00 11:00 12:06 WBC 17.6 H RBC 2.92 L Hgb 9.2 L Hct 28.3 L MCV RDW 16.9 H Plt Count Lymph % (Auto) [place] % (Auto) [place] # Seg Neutrophils % Seg Neuts % (Manual) Lymphocytes % (Manual) Monocytes % (Manual) Basophils % (Manual) Nucleated RBC % Seg Neutrophils # Seg Neutrophils # Man Lymphocytes # (Manual) Monocytes # (Manual) Eosinophils # (Manual) Basophils # (Manual) PT INR APTT Heparin Anti-Xa Level 0.27 L POC ABG pH POC ABG pCO2 POC ABG pO2 Sodium Potassium Chloride Carbon Dioxide BUN Creatinine Glucose POC Glucose 166 H Calcium Phosphorus Magnesium AST Alkaline Phosphatase Troponin T C-Reactive Protein Total Protein Albumin Triglycerides HDL Cholesterol Lipase Vitamin B12 TSH Urine WBC (Auto) Urine Chloride Urine Total Protein Vancomycin Trough Crossmatch 10/24/16 10/25/16 10/25/16 12:27 00:49 03:30 WBC RBC Hgb 8.8 L Hct 28.1 L MCV RDW Plt Count Lymph % (Auto) [place] % (Auto) [place] # Seg Neutrophils % Seg Neuts % (Manual) Lymphocytes % (Manual) Monocytes % (Manual) Basophils % (Manual) Nucleated RBC % Seg Neutrophils # Seg Neutrophils # Man Lymphocytes # (Manual) Monocytes # (Manual) Eosinophils # (Manual) Basophils # (Manual) PT INR APTT Heparin Anti-Xa Level POC ABG pH POC ABG pCO2 33.9 L POC ABG pO2 Sodium Potassium Chloride Carbon Dioxide BUN Creatinine Glucose POC Glucose 121 H Calcium Phosphorus Magnesium AST Alkaline Phosphatase Troponin T C-Reactive Protein Total Protein Albumin Triglycerides HDL Cholesterol Lipase Vitamin B12 TSH Urine WBC (Auto) Urine Chloride Urine Total Protein Vancomycin Trough Crossmatch 10/25/16 10/25/16 10/25/16 09:49 12:10 19:25 WBC 21.1 H RBC 3.02 L Hgb 9.3 L Hct 28.9 L MCV RDW 16.3 H Plt Count Lymph % (Auto) [place] % (Auto) [place] # Seg Neutrophils % Seg Neuts % (Manual) 81.0 H Lymphocytes % (Manual) 9.0 L Monocytes % (Manual) Basophils % (Manual) Nucleated RBC % Seg Neutrophils # Seg Neutrophils # Man 17.1 H Lymphocytes # (Manual) Monocytes # (Manual) Eosinophils # (Manual) Basophils # (Manual) PT INR APTT Heparin Anti-Xa Level POC ABG pH POC ABG pCO2 POC ABG pO2 Sodium Potassium Chloride Carbon Dioxide BUN Creatinine Glucose POC Glucose 158 H 151 H Calcium Phosphorus Magnesium AST Alkaline Phosphatase Troponin T C-Reactive Protein Total Protein Albumin Triglycerides HDL Cholesterol Lipase Vitamin B12 TSH Urine WBC (Auto) Urine Chloride Urine Total Protein Vancomycin Trough Crossmatch 10/26/16 10/26/16 10/26/16 00:20 01:09 05:02 WBC 22.2 H RBC 2.89 L Hgb 8.7 L Hct 27.8 L MCV RDW 16.4 H Plt Count Lymph % (Auto) [place] % (Auto) [place] # Seg Neutrophils % Seg Neuts % (Manual) Lymphocytes % (Manual) Monocytes % (Manual) Basophils % (Manual) Nucleated RBC % Seg Neutrophils # Seg Neutrophils # Man Lymphocytes # (Manual) Monocytes # (Manual) Eosinophils # (Manual) Basophils # (Manual) PT INR APTT Heparin Anti-Xa Level POC ABG pH POC ABG pCO2 POC ABG pO2 Sodium Potassium Chloride Carbon Dioxide BUN Creatinine Glucose POC Glucose 44 L 112 H Calcium Phosphorus Magnesium AST Alkaline Phosphatase Troponin T C-Reactive Protein Total Protein Albumin Triglycerides HDL Cholesterol Lipase Vitamin B12 TSH Urine WBC (Auto) Urine Chloride Urine Total Protein Vancomycin Trough Crossmatch 10/26/16 10/26/16 10/26/16 05:02 12:11 12:14 WBC RBC Hgb Hct MCV RDW Plt Count Lymph % (Auto) [place] % (Auto) [place] # Seg Neutrophils % Seg Neuts % (Manual) Lymphocytes % (Manual) Monocytes % (Manual) Basophils % (Manual) Nucleated RBC % Seg Neutrophils # Seg Neutrophils # Man Lymphocytes # (Manual) Monocytes # (Manual) Eosinophils # (Manual) Basophils # (Manual) PT INR APTT Heparin Anti-Xa Level POC ABG pH POC ABG pCO2 32.0 L POC ABG pO2 33 L Sodium Potassium 3.2 L D Chloride Carbon Dioxide 20 L BUN 24 H Creatinine Glucose 104 H POC Glucose 194 H Calcium 7.7 L Phosphorus Magnesium AST Alkaline Phosphatase Troponin T C-Reactive Protein Total Protein Albumin Triglycerides HDL Cholesterol Lipase Vitamin B12 TSH Urine WBC (Auto) Urine Chloride Urine Total Protein Vancomycin Trough Crossmatch 10/26/16 10/26/16 10/27/16 15:28 17:23 00:04 WBC RBC Hgb Hct MCV RDW Plt Count Lymph % (Auto) [place] % (Auto) [place] # Seg Neutrophils % Seg Neuts % (Manual) Lymphocytes % (Manual) Monocytes % (Manual) Basophils % (Manual) Nucleated RBC % Seg Neutrophils # Seg Neutrophils # Man Lymphocytes # (Manual) Monocytes # (Manual) Eosinophils # (Manual) Basophils # (Manual) PT INR APTT Heparin Anti-Xa Level POC ABG pH POC ABG pCO2 33.7 L POC ABG pO2 Sodium Potassium Chloride Carbon Dioxide BUN Creatinine Glucose POC Glucose 181 H 230 H Calcium Phosphorus Magnesium AST Alkaline Phosphatase Troponin T C-Reactive Protein Total Protein Albumin Triglycerides HDL Cholesterol Lipase Vitamin B12 TSH Urine WBC (Auto) Urine Chloride Urine Total Protein Vancomycin Trough Crossmatch 10/27/16 10/27/16 10/27/16 05:15 05:15 05:38 WBC 25.5 H RBC 3.07 L Hgb 9.4 L Hct 30.1 L MCV 98 H RDW 16.4 H Plt Count 527 H Lymph % (Auto) [place] % (Auto) [place] # Seg Neutrophils % Seg Neuts % (Manual) Lymphocytes % (Manual) Monocytes % (Manual) Basophils % (Manual) Nucleated RBC % Seg Neutrophils # Seg Neutrophils # Man Lymphocytes # (Manual) Monocytes # (Manual) Eosinophils # (Manual) Basophils # (Manual) PT INR APTT Heparin Anti-Xa Level POC ABG pH POC ABG pCO2 POC ABG pO2 Sodium Potassium Chloride Carbon Dioxide 19 L BUN 23 H Creatinine Glucose 160 H POC Glucose 168 H Calcium 8.0 L Phosphorus Magnesium AST Alkaline Phosphatase Troponin T C-Reactive Protein Total Protein Albumin Triglycerides HDL Cholesterol Lipase Vitamin B12 TSH Urine WBC (Auto) Urine Chloride Urine Total Protein Vancomycin Trough Crossmatch 10/27/16 10/27/16 10/27/16 11:59 18:35 23:48 WBC RBC Hgb Hct MCV RDW Plt Count Lymph % (Auto) [place] % (Auto) [place] # Seg Neutrophils % Seg Neuts % (Manual) Lymphocytes % (Manual) Monocytes % (Manual) Basophils % (Manual) Nucleated RBC % Seg Neutrophils # Seg Neutrophils # Man Lymphocytes # (Manual) Monocytes # (Manual) Eosinophils # (Manual) Basophils # (Manual) PT INR APTT Heparin Anti-Xa Level POC ABG pH POC ABG pCO2 POC ABG pO2 Sodium Potassium Chloride Carbon Dioxide BUN Creatinine Glucose POC Glucose 197 H 318 H 316 H Calcium Phosphorus Magnesium AST Alkaline Phosphatase Troponin T C-Reactive Protein Total Protein Albumin Triglycerides HDL Cholesterol Lipase Vitamin B12 TSH Urine WBC (Auto) Urine Chloride Urine Total Protein Vancomycin Trough Crossmatch 10/28/16 10/28/16 10/28/16 03:13 04:10 04:10 WBC 18.8 H RBC 2.64 L Hgb 8.1 L Hct 26.1 L MCV 99 H RDW 16.2 H Plt Count 544 H Lymph % (Auto) [place] % (Auto) [place] # Seg Neutrophils % Seg Neuts % (Manual) Lymphocytes % (Manual) Monocytes % (Manual) Basophils % (Manual) Nucleated RBC % Seg Neutrophils # Seg Neutrophils # Man Lymphocytes # (Manual) Monocytes # (Manual) Eosinophils # (Manual) Basophils # (Manual) PT INR APTT Heparin Anti-Xa Level POC ABG pH POC ABG pCO2 POC ABG pO2 Sodium Potassium Chloride Carbon Dioxide 21 L BUN 24 H Creatinine Glucose 302 H POC Glucose 304 H Calcium 7.7 L Phosphorus Magnesium AST Alkaline Phosphatase Troponin T C-Reactive Protein Total Protein Albumin Triglycerides HDL Cholesterol Lipase Vitamin B12 TSH Urine WBC (Auto) Urine Chloride Urine Total Protein Vancomycin Trough Crossmatch 10/28/16 10/28/16 10/28/16 04:10 12:36 18:27 WBC RBC Hgb Hct MCV RDW Plt Count Lymph % (Auto) [place] % (Auto) [place] # Seg Neutrophils % Seg Neuts % (Manual) Lymphocytes % (Manual) Monocytes % (Manual) Basophils % (Manual) Nucleated RBC % Seg Neutrophils # Seg Neutrophils # Man Lymphocytes # (Manual) Monocytes # (Manual) Eosinophils # (Manual) Basophils # (Manual) PT INR APTT Heparin Anti-Xa Level 0.20 L POC ABG pH POC ABG pCO2 POC ABG pO2 Sodium Potassium Chloride Carbon Dioxide BUN Creatinine Glucose POC Glucose 205 H 339 H Calcium Phosphorus Magnesium AST Alkaline Phosphatase Troponin T C-Reactive Protein Total Protein Albumin Triglycerides HDL Cholesterol Lipase Vitamin B12 TSH Urine WBC (Auto) Urine Chloride Urine Total Protein Vancomycin Trough Crossmatch 10/29/16 10/29/16 10/29/16 01:05 06:19 09:30 WBC 20.3 H RBC 2.80 L Hgb 8.5 L Hct 26.7 L MCV RDW 15.4 H Plt Count 571 H Lymph % (Auto) [place] % (Auto) [place] # Seg Neutrophils % Seg Neuts % (Manual) 75.0 H Lymphocytes % (Manual) 4.0 L Monocytes % (Manual) Basophils % (Manual) Nucleated RBC % Seg Neutrophils # Seg Neutrophils # Man 15.2 H Lymphocytes # (Manual) 0.8 L Monocytes # (Manual) Eosinophils # (Manual) Basophils # (Manual) PT INR APTT Heparin Anti-Xa Level POC ABG pH POC ABG pCO2 POC ABG pO2 Sodium Potassium Chloride Carbon Dioxide BUN Creatinine Glucose POC Glucose 275 H 179 H Calcium Phosphorus Magnesium AST Alkaline Phosphatase Troponin T C-Reactive Protein Total Protein Albumin Triglycerides HDL Cholesterol Lipase Vitamin B12 TSH Urine WBC (Auto) Urine Chloride Urine Total Protein Vancomycin Trough Crossmatch 10/29/16 10/29/16 10/29/16 11:46 15:18 17:55 WBC RBC Hgb Hct MCV RDW Plt Count Lymph % (Auto) [place] % (Auto) [place] # Seg Neutrophils % Seg Neuts % (Manual) Lymphocytes % (Manual) Monocytes % (Manual) Basophils % (Manual) Nucleated RBC % Seg Neutrophils # Seg Neutrophils # Man Lymphocytes # (Manual) Monocytes # (Manual) Eosinophils # (Manual) Basophils # (Manual) PT INR APTT Heparin Anti-Xa Level 1.15 H POC ABG pH POC ABG pCO2 POC ABG pO2 Sodium Potassium Chloride Carbon Dioxide BUN Creatinine Glucose POC Glucose 122 H 255 H Calcium Phosphorus Magnesium AST Alkaline Phosphatase Troponin T C-Reactive Protein Total Protein Albumin Triglycerides HDL Cholesterol Lipase Vitamin B12 TSH Urine WBC (Auto) Urine Chloride Urine Total Protein Vancomycin Trough Crossmatch 10/30/16 10/30/16 10/30/16 00:10 05:30 05:30 WBC 19.8 H RBC 2.51 L Hgb 7.7 L Hct 24.1 L MCV RDW 15.5 H Plt Count 534 H Lymph % (Auto) [place] % (Auto) [place] # Seg Neutrophils % Seg Neuts % (Manual) Lymphocytes % (Manual) Monocytes % (Manual) Basophils % (Manual) Nucleated RBC % Seg Neutrophils # Seg Neutrophils # Man Lymphocytes # (Manual) Monocytes # (Manual) Eosinophils # (Manual) Basophils # (Manual) PT INR APTT Heparin Anti-Xa Level POC ABG pH POC ABG pCO2 POC ABG pO2 Sodium Potassium Chloride Carbon Dioxide BUN Creatinine Glucose 211 H POC Glucose 202 H Calcium 7.4 L Phosphorus Magnesium AST Alkaline Phosphatase Troponin T C-Reactive Protein Total Protein Albumin Triglycerides HDL Cholesterol Lipase Vitamin B12 TSH Urine WBC (Auto) Urine Chloride Urine Total Protein Vancomycin Trough Crossmatch 10/30/16 10/30/16 10/30/16 06:32 12:51 17:47 WBC RBC Hgb Hct MCV RDW Plt Count Lymph % (Auto) [place] % (Auto) [place] # Seg Neutrophils % Seg Neuts % (Manual) Lymphocytes % (Manual) Monocytes % (Manual) Basophils % (Manual) Nucleated RBC % Seg Neutrophils # Seg Neutrophils # Man Lymphocytes # (Manual) Monocytes # (Manual) Eosinophils # (Manual) Basophils # (Manual) PT INR APTT Heparin Anti-Xa Level POC ABG pH POC ABG pCO2 POC ABG pO2 Sodium Potassium Chloride Carbon Dioxide BUN Creatinine Glucose POC Glucose 207 H 218 H 169 H Calcium Phosphorus Magnesium AST Alkaline Phosphatase Troponin T C-Reactive Protein Total Protein Albumin Triglycerides HDL Cholesterol Lipase Vitamin B12 TSH Urine WBC (Auto) Urine Chloride Urine Total Protein Vancomycin Trough Crossmatch 10/30/16 10/31/16 10/31/16 23:59 05:25 11:21 WBC RBC Hgb Hct MCV RDW Plt Count Lymph % (Auto) [place] % (Auto) [place] # Seg Neutrophils % Seg Neuts % (Manual) Lymphocytes % (Manual) Monocytes % (Manual) Basophils % (Manual) Nucleated RBC % Seg Neutrophils # Seg Neutrophils # Man Lymphocytes # (Manual) Monocytes # (Manual) Eosinophils # (Manual) Basophils # (Manual) PT INR APTT Heparin Anti-Xa Level POC ABG pH POC ABG pCO2 POC ABG pO2 Sodium Potassium Chloride Carbon Dioxide BUN Creatinine Glucose POC Glucose 138 H 127 H 132 H Calcium Phosphorus Magnesium AST Alkaline Phosphatase Troponin T C-Reactive Protein Total Protein Albumin Triglycerides HDL Cholesterol Lipase Vitamin B12 TSH Urine WBC (Auto) Urine Chloride Urine Total Protein Vancomycin Trough Crossmatch 10/31/16 10/31/16 11/01/16 17:07 23:54 05:47 WBC RBC Hgb Hct MCV RDW Plt Count Lymph % (Auto) [place] % (Auto) [place] # Seg Neutrophils % Seg Neuts % (Manual) Lymphocytes % (Manual) Monocytes % (Manual) Basophils % (Manual) Nucleated RBC % Seg Neutrophils # Seg Neutrophils # Man Lymphocytes # (Manual) Monocytes # (Manual) Eosinophils # (Manual) Basophils # (Manual) PT INR APTT Heparin Anti-Xa Level POC ABG pH POC ABG pCO2 POC ABG pO2 Sodium Potassium Chloride Carbon Dioxide BUN Creatinine Glucose POC Glucose 138 H 153 H 150 H Calcium Phosphorus Magnesium AST Alkaline Phosphatase Troponin T C-Reactive Protein Total Protein Albumin Triglycerides HDL Cholesterol Lipase Vitamin B12 TSH Urine WBC (Auto) Urine Chloride Urine Total Protein Vancomycin Trough Crossmatch 11/01/16 11/01/16 11/01/16 06:33 06:33 12:16 WBC 19.2 H RBC 2.51 L Hgb 7.9 L Hct 24.8 L MCV 99 H D RDW 16.1 H Plt Count 569 H Lymph % (Auto) [place] % (Auto) [place] # Seg Neutrophils % Seg Neuts % (Manual) Lymphocytes % (Manual) Monocytes % (Manual) Basophils % (Manual) Nucleated RBC % Seg Neutrophils # Seg Neutrophils # Man Lymphocytes # (Manual) Monocytes # (Manual) Eosinophils # (Manual) Basophils # (Manual) PT INR APTT Heparin Anti-Xa Level POC ABG pH POC ABG pCO2 POC ABG pO2 Sodium Potassium 3.5 L Chloride Carbon Dioxide 21 L BUN Creatinine Glucose 137 H POC Glucose 125 H Calcium 7.7 L Phosphorus Magnesium AST Alkaline Phosphatase 148 H Troponin T C-Reactive Protein Total Protein 6.2 L Albumin 2.0 L Triglycerides HDL Cholesterol Lipase Vitamin B12 TSH Urine WBC (Auto) Urine Chloride Urine Total Protein Vancomycin Trough Crossmatch 11/01/16 11/02/16 11/02/16 17:37 00:05 04:15 WBC RBC Hgb Hct MCV RDW Plt Count Lymph % (Auto) [place] % (Auto) [place] # Seg Neutrophils % Seg Neuts % (Manual) Lymphocytes % (Manual) Monocytes % (Manual) Basophils % (Manual) Nucleated RBC % Seg Neutrophils # Seg Neutrophils # Man Lymphocytes # (Manual) Monocytes # (Manual) Eosinophils # (Manual) Basophils # (Manual) PT INR APTT Heparin Anti-Xa Level < 0.10 L POC ABG pH POC ABG pCO2 POC ABG pO2 Sodium Potassium 3.2 L Chloride Carbon Dioxide BUN 6 L Creatinine Glucose 135 H POC Glucose 164 H Calcium 7.5 L Phosphorus Magnesium AST Alkaline Phosphatase 132 H Troponin T C-Reactive Protein Total Protein 6.2 L Albumin 1.8 L Triglycerides HDL Cholesterol Lipase Vitamin B12 TSH Urine WBC (Auto) Urine Chloride Urine Total Protein Vancomycin Trough Crossmatch 11/02/16 11/02/16 11/02/16 04:15 05:54 12:15 WBC 17.7 H RBC 2.43 L Hgb 7.6 L Hct 23.5 L MCV RDW 15.9 H Plt Count 502 H Lymph % (Auto) [place] % (Auto) [place] # Seg Neutrophils % Seg Neuts % (Manual) 84.0 H Lymphocytes % (Manual) 11.0 L Monocytes % (Manual) Basophils % (Manual) Nucleated RBC % 1.0 H Seg Neutrophils # Seg Neutrophils # Man 14.9 H Lymphocytes # (Manual) Monocytes # (Manual) Eosinophils # (Manual) Basophils # (Manual) PT INR APTT Heparin Anti-Xa Level POC ABG pH POC ABG pCO2 POC ABG pO2 Sodium Potassium Chloride Carbon Dioxide BUN Creatinine Glucose POC Glucose 152 H 137 H Calcium Phosphorus Magnesium AST Alkaline Phosphatase Troponin T C-Reactive Protein Total Protein Albumin Triglycerides HDL Cholesterol Lipase Vitamin B12 TSH Urine WBC (Auto) Urine Chloride Urine Total Protein Vancomycin Trough Crossmatch 11/02/16 11/03/16 11/03/16 17:00 00:05 00:05 WBC RBC Hgb Hct MCV RDW Plt Count Lymph % (Auto) [place] % (Auto) [place] # Seg Neutrophils % Seg Neuts % (Manual) Lymphocytes % (Manual) Monocytes % (Manual) Basophils % (Manual) Nucleated RBC % Seg Neutrophils # Seg Neutrophils # Man Lymphocytes # (Manual) Monocytes # (Manual) Eosinophils # (Manual) Basophils # (Manual) PT INR APTT Heparin Anti-Xa Level POC ABG pH POC ABG pCO2 POC ABG pO2 Sodium Potassium Chloride Carbon Dioxide 20 L BUN 5 L Creatinine Glucose 139 H POC Glucose 161 H Calcium 6.7 L Phosphorus Magnesium 1.2 L AST Alkaline Phosphatase Troponin T C-Reactive Protein Total Protein Albumin Triglycerides HDL Cholesterol Lipase Vitamin B12 TSH Urine WBC (Auto) Urine Chloride Urine Total Protein Vancomycin Trough Crossmatch 11/03/16 11/03/16 11/03/16 00:05 02:05 04:23 WBC 15.9 H 14.0 H RBC 1.93 L 2.38 L Hgb 5.9 L* 7.3 L Hct 18.9 L* 23.1 L MCV 98 H RDW 15.9 H 15.9 H Plt Count Lymph % (Auto) [place] % (Auto) [place] # Seg Neutrophils % Seg Neuts % (Manual) 85.0 H Lymphocytes % (Manual) 4.0 L Monocytes % (Manual) Basophils % (Manual) Nucleated RBC % Seg Neutrophils # Seg Neutrophils # Man 13.5 H Lymphocytes # (Manual) 0.6 L Monocytes # (Manual) Eosinophils # (Manual) Basophils # (Manual) PT INR APTT Heparin Anti-Xa Level POC ABG pH POC ABG pCO2 POC ABG pO2 Sodium Potassium Chloride Carbon Dioxide BUN 5 L Creatinine Glucose 127 H POC Glucose Calcium 7.2 L Phosphorus Magnesium AST Alkaline Phosphatase Troponin T C-Reactive Protein Total Protein 5.8 L Albumin 1.5 L Triglycerides HDL Cholesterol Lipase Vitamin B12 TSH Urine WBC (Auto) Urine Chloride Urine Total Protein Vancomycin Trough Crossmatch 11/03/16 11/03/16 11/03/16 09:14 09:27 11:54 WBC RBC Hgb Hct MCV RDW Plt Count Lymph % (Auto) [place] % (Auto) [place] # Seg Neutrophils % Seg Neuts % (Manual) Lymphocytes % (Manual) Monocytes % (Manual) Basophils % (Manual) Nucleated RBC % Seg Neutrophils # Seg Neutrophils # Man Lymphocytes # (Manual) Monocytes # (Manual) Eosinophils # (Manual) Basophils # (Manual) PT INR APTT Heparin Anti-Xa Level 0.11 L POC ABG pH POC ABG pCO2 POC ABG pO2 Sodium Potassium Chloride Carbon Dioxide BUN 5 L Creatinine Glucose 111 H POC Glucose 139 H Calcium 6.7 L Phosphorus Magnesium AST Alkaline Phosphatase Troponin T C-Reactive Protein Total Protein Albumin Triglycerides HDL Cholesterol Lipase Vitamin B12 TSH Urine WBC (Auto) Urine Chloride Urine Total Protein Vancomycin Trough Crossmatch 11/03/16 11/03/16 11/03/16 16:26 18:01 18:01 WBC RBC Hgb Hct MCV RDW Plt Count Lymph % (Auto) [place] % (Auto) [place] # Seg Neutrophils % Seg Neuts % (Manual) Lymphocytes % (Manual) Monocytes % (Manual) Basophils % (Manual) Nucleated RBC % Seg Neutrophils # Seg Neutrophils # Man Lymphocytes # (Manual) Monocytes # (Manual) Eosinophils # (Manual) Basophils # (Manual) PT INR APTT Heparin Anti-Xa Level 2.00 H POC ABG pH POC ABG pCO2 POC ABG pO2 Sodium Potassium Chloride Carbon Dioxide BUN Creatinine Glucose POC Glucose 142 H Calcium Phosphorus Magnesium AST Alkaline Phosphatase Troponin T C-Reactive Protein Total Protein Albumin Triglycerides HDL Cholesterol Lipase Vitamin B12 TSH Urine WBC (Auto) Urine Chloride Urine Total Protein Vancomycin Trough Crossmatch See Detail 11/04/16 11/04/16 11/04/16 02:15 02:15 06:35 WBC 11.8 H RBC 2.39 L Hgb 7.4 L Hct 23.1 L MCV RDW 15.9 H Plt Count Lymph % (Auto) [place] % (Auto) [place] # Seg Neutrophils % Seg Neuts % (Manual) 76.0 H Lymphocytes % (Manual) 12.0 L Monocytes % (Manual) 9.0 H Basophils % (Manual) Nucleated RBC % Seg Neutrophils # Seg Neutrophils # Man 9.0 H Lymphocytes # (Manual) Monocytes # (Manual) 1.1 H Eosinophils # (Manual) Basophils # (Manual) PT INR APTT Heparin Anti-Xa Level < 0.10 L POC ABG pH POC ABG pCO2 POC ABG pO2 Sodium Potassium Chloride Carbon Dioxide 21 L BUN 5 L Creatinine Glucose 112 H POC Glucose Calcium 6.8 L Phosphorus Magnesium AST Alkaline Phosphatase Troponin T C-Reactive Protein Total Protein 5.7 L Albumin 1.7 L Triglycerides HDL Cholesterol Lipase Vitamin B12 TSH Urine WBC (Auto) Urine Chloride Urine Total Protein Vancomycin Trough Crossmatch 11/04/16 11/04/16 11/04/16 10:51 12:58 15:04 WBC RBC Hgb Hct MCV RDW Plt Count Lymph % (Auto) [place] % (Auto) [place] # Seg Neutrophils % Seg Neuts % (Manual) Lymphocytes % (Manual) Monocytes % (Manual) Basophils % (Manual) Nucleated RBC % Seg Neutrophils # Seg Neutrophils # Man Lymphocytes # (Manual) Monocytes # (Manual) Eosinophils # (Manual) Basophils # (Manual) PT INR APTT Heparin Anti-Xa Level 1.05 H POC ABG pH POC ABG pCO2 33.7 L POC ABG pO2 60 L Sodium Potassium Chloride Carbon Dioxide BUN Creatinine Glucose POC Glucose 118 H Calcium Phosphorus Magnesium AST Alkaline Phosphatase Troponin T C-Reactive Protein Total Protein Albumin Triglycerides HDL Cholesterol Lipase Vitamin B12 TSH Urine WBC (Auto) Urine Chloride Urine Total Protein Vancomycin Trough Crossmatch 11/04/16 11/04/16 11/05/16 17:20 20:31 02:30 WBC RBC Hgb Hct MCV RDW Plt Count Lymph % (Auto) [place] % (Auto) [place] # Seg Neutrophils % Seg Neuts % (Manual) Lymphocytes % (Manual) Monocytes % (Manual) Basophils % (Manual) Nucleated RBC % Seg Neutrophils # Seg Neutrophils # Man Lymphocytes # (Manual) Monocytes # (Manual) Eosinophils # (Manual) Basophils # (Manual) PT INR APTT Heparin Anti-Xa Level POC ABG pH POC ABG pCO2 POC ABG pO2 Sodium Potassium 3.5 L Chloride Carbon Dioxide 18 L BUN 5 L Creatinine 0.6 L Glucose 110 H POC Glucose 228 H 169 H Calcium 7.1 L Phosphorus Magnesium AST Alkaline Phosphatase Troponin T C-Reactive Protein Total Protein Albumin 1.9 L Triglycerides HDL Cholesterol Lipase Vitamin B12 TSH Urine WBC (Auto) Urine Chloride Urine Total Protein Vancomycin Trough Crossmatch 11/05/16 11/05/16 11/05/16 02:30 17:52 21:07 WBC 14.1 H RBC Hgb Hct MCV RDW 16.7 H Plt Count Lymph % (Auto) [place] % (Auto) [place] # Seg Neutrophils % Seg Neuts % (Manual) 80.0 H Lymphocytes % (Manual) 6.0 L Monocytes % (Manual) 8.0 H Basophils % (Manual) Nucleated RBC % Seg Neutrophils # Seg Neutrophils # Man 11.3 H Lymphocytes # (Manual) 0.8 L Monocytes # (Manual) 1.1 H Eosinophils # (Manual) Basophils # (Manual) PT INR APTT Heparin Anti-Xa Level < 0.10 L POC ABG pH POC ABG pCO2 POC ABG pO2 Sodium Potassium Chloride Carbon Dioxide BUN Creatinine Glucose POC Glucose 174 H Calcium Phosphorus Magnesium AST Alkaline Phosphatase Troponin T C-Reactive Protein Total Protein Albumin Triglycerides HDL Cholesterol Lipase Vitamin B12 TSH Urine WBC (Auto) Urine Chloride Urine Total Protein Vancomycin Trough Crossmatch 11/05/16 11/06/16 11/06/16 23:30 05:00 05:00 WBC 15.2 H RBC 3.29 L Hgb 10.0 L Hct MCV RDW 16.9 H Plt Count Lymph % (Auto) [place]th % (Auto) S[place]th # Seg Neutrophils % Seg Neuts % (Manual) Lymphocytes % (Manual) Monocytes % (Manual) Basophils % (Manual) Nucleated RBC % Seg Neutrophils # Seg Neutrophils # Man Lymphocytes # (Manual) Monocytes # (Manual) Eosinophils # (Manual) Basophils # (Manual) PT INR APTT Heparin Anti-Xa Level 0.94 H POC ABG pH POC ABG pCO2 POC ABG pO2 Sodium Potassium Chloride Carbon Dioxide BUN Creatinine Glucose POC Glucose 131 H Calcium Phosphorus Magnesium AST Alkaline Phosphatase Troponin T C-Reactive Protein Total Protein Albumin Triglycerides HDL Cholesterol Lipase Vitamin B12 TSH Urine WBC (Auto) Urine Chloride Urine Total Protein Vancomycin Trough Crossmatch 11/06/16 11/06/16 11/06/16 05:00 11:45 18:23 WBC RBC Hgb Hct MCV RDW Plt Count Lymph % (Auto) [place]th % (Auto) [place] # Seg Neutrophils % Seg Neuts % (Manual) Lymphocytes % (Manual) Monocytes % (Manual) Basophils % (Manual) Nucleated RBC % Seg Neutrophils # Seg Neutrophils # Man Lymphocytes # (Manual) Monocytes # (Manual) Eosinophils # (Manual) Basophils # (Manual) PT INR APTT Heparin Anti-Xa Level POC ABG pH POC ABG pCO2 POC ABG pO2 Sodium Potassium 3.5 L Chloride 107.1 H Carbon Dioxide 20 L BUN 4 L Creatinine 0.6 L Glucose 104 H POC Glucose 141 H 255 H Calcium 6.7 L Phosphorus Magnesium AST Alkaline Phosphatase Troponin T C-Reactive Protein Total Protein Albumin Triglycerides HDL Cholesterol Lipase Vitamin B12 TSH Urine WBC (Auto) Urine Chloride Urine Total Protein Vancomycin Trough Crossmatch 11/06/16 11/06/16 11/07/16 22:07 23:07 11:41 WBC RBC Hgb Hct MCV RDW Plt Count Lymph % (Auto) [place] % (Auto) [place] # Seg Neutrophils % Seg Neuts % (Manual) Lymphocytes % (Manual) Monocytes % (Manual) Basophils % (Manual) Nucleated RBC % Seg Neutrophils # Seg Neutrophils # Man Lymphocytes # (Manual) Monocytes # (Manual) Eosinophils # (Manual) Basophils # (Manual) PT INR APTT Heparin Anti-Xa Level 0.80 H POC ABG pH POC ABG pCO2 POC ABG pO2 Sodium Potassium Chloride Carbon Dioxide BUN Creatinine Glucose POC Glucose 183 H 132 H Calcium Phosphorus Magnesium AST Alkaline Phosphatase Troponin T C-Reactive Protein Total Protein Albumin Triglycerides HDL Cholesterol Lipase Vitamin B12 TSH Urine WBC (Auto) Urine Chloride Urine Total Protein Vancomycin Trough Crossmatch 11/07/16 11/07/16 11/07/16 12:17 17:05 17:58 WBC RBC Hgb Hct MCV RDW Plt Count Lymph % (Auto) [place] % (Auto) [place] # Seg Neutrophils % Seg Neuts % (Manual) Lymphocytes % (Manual) Monocytes % (Manual) Basophils % (Manual) Nucleated RBC % Seg Neutrophils # Seg Neutrophils # Man Lymphocytes # (Manual) Monocytes # (Manual) Eosinophils # (Manual) Basophils # (Manual) PT INR APTT Heparin Anti-Xa Level 0.87 H POC ABG pH 7.324 L POC ABG pCO2 POC ABG pO2 Sodium Potassium Chloride Carbon Dioxide BUN Creatinine Glucose POC Glucose 158 H Calcium Phosphorus Magnesium AST Alkaline Phosphatase Troponin T C-Reactive Protein Total Protein Albumin Triglycerides HDL Cholesterol Lipase Vitamin B12 TSH Urine WBC (Auto) Urine Chloride Urine Total Protein Vancomycin Trough Crossmatch 11/07/16 11/07/16 11/07/16 23:26 Unknown Unknown WBC 12.3 H RBC 2.96 L Hgb 9.1 L Hct 27.9 L MCV RDW 16.8 H Plt Count Lymph % (Auto) [place] % (Auto) [place] # Seg Neutrophils % Seg Neuts % (Manual) 80.0 H Lymphocytes % (Manual) 7.0 L Monocytes % (Manual) Basophils % (Manual) Nucleated RBC % Seg Neutrophils # Seg Neutrophils # Man 9.8 H Lymphocytes # (Manual) 0.9 L Monocytes # (Manual) Eosinophils # (Manual) Basophils # (Manual) PT INR APTT Heparin Anti-Xa Level POC ABG pH POC ABG pCO2 POC ABG pO2 Sodium Potassium Chloride Carbon Dioxide 19 L BUN Creatinine Glucose 106 H POC Glucose 130 H Calcium 6.9 L Phosphorus Magnesium AST Alkaline Phosphatase Troponin T C-Reactive Protein Total Protein Albumin Triglycerides HDL Cholesterol Lipase Vitamin B12 TSH Urine WBC (Auto) Urine Chloride Urine Total Protein Vancomycin Trough Crossmatch 11/07/16 11/08/16 11/08/16 Unknown 05:14 05:20 WBC 12.4 H RBC 3.04 L Hgb 9.2 L Hct 28.8 L MCV RDW 16.6 H Plt Count Lymph % (Auto) [place] % (Auto) [place] # Seg Neutrophils % Seg Neuts % (Manual) 77.0 H Lymphocytes % (Manual) 5.0 L Monocytes % (Manual) Basophils % (Manual) 2.0 H Nucleated RBC % Seg Neutrophils # Seg Neutrophils # Man 9.5 H Lymphocytes # (Manual) 0.6 L Monocytes # (Manual) Eosinophils # (Manual) Basophils # (Manual) 0.2 H PT INR APTT Heparin Anti-Xa Level 0.90 H POC ABG pH POC ABG pCO2 POC ABG pO2 Sodium Potassium Chloride Carbon Dioxide BUN Creatinine Glucose POC Glucose 204 H Calcium Phosphorus Magnesium AST Alkaline Phosphatase Troponin T C-Reactive Protein Total Protein Albumin Triglycerides HDL Cholesterol Lipase Vitamin B12 TSH Urine WBC (Auto) Urine Chloride Urine Total Protein Vancomycin Trough Crossmatch 11/08/16 11/08/16 11/08/16 05:20 12:10 13:10 WBC RBC Hgb Hct MCV RDW Plt Count Lymph % (Auto) [place] % (Auto) [place] # Seg Neutrophils % Seg Neuts % (Manual) Lymphocytes % (Manual) Monocytes % (Manual) Basophils % (Manual) Nucleated RBC % Seg Neutrophils # Seg Neutrophils # Man Lymphocytes # (Manual) Monocytes # (Manual) Eosinophils # (Manual) Basophils # (Manual) PT INR APTT Heparin Anti-Xa Level POC ABG pH POC ABG pCO2 33.7 L POC ABG pO2 Sodium 136 L Potassium Chloride Carbon Dioxide 19 L BUN Creatinine Glucose 192 H POC Glucose 180 H Calcium 7.1 L Phosphorus Magnesium AST Alkaline Phosphatase Troponin T C-Reactive Protein Total Protein Albumin Triglycerides HDL Cholesterol Lipase Vitamin B12 TSH Urine WBC (Auto) Urine Chloride Urine Total Protein Vancomycin Trough Crossmatch 11/08/16 11/08/16 11/08/16 17:26 20:45 23:34 WBC RBC Hgb Hct MCV RDW Plt Count Lymph % (Auto) [place] % (Auto) [place] # Seg Neutrophils % Seg Neuts % (Manual) Lymphocytes % (Manual) Monocytes % (Manual) Basophils % (Manual) Nucleated RBC % Seg Neutrophils # Seg Neutrophils # Man Lymphocytes # (Manual) Monocytes # (Manual) Eosinophils # (Manual) Basophils # (Manual) PT INR APTT Heparin Anti-Xa Level POC ABG pH POC ABG pCO2 POC ABG pO2 Sodium Potassium Chloride Carbon Dioxide BUN Creatinine Glucose POC Glucose 187 H 178 H Calcium Phosphorus Magnesium AST Alkaline Phosphatase Troponin T C-Reactive Protein Total Protein Albumin Triglycerides HDL Cholesterol Lipase Vitamin B12 TSH Urine WBC (Auto) Urine Chloride Urine Total Protein Vancomycin Trough 35.4 H Crossmatch 11/09/16 11/09/16 11/09/16 05:30 05:30 05:59 WBC 11.5 H RBC 2.96 L Hgb 9.2 L Hct 28.2 L MCV RDW 16.4 H Plt Count Lymph % (Auto) [place] % (Auto) [place] # Seg Neutrophils % Seg Neuts % (Manual) 76.0 H Lymphocytes % (Manual) 2.0 L Monocytes % (Manual) Basophils % (Manual) Nucleated RBC % Seg Neutrophils # Seg Neutrophils # Man 8.7 H Lymphocytes # (Manual) 0.2 L Monocytes # (Manual) Eosinophils # (Manual) Basophils # (Manual) PT INR APTT Heparin Anti-Xa Level POC ABG pH POC ABG pCO2 POC ABG pO2 Sodium Potassium 3.4 L Chloride 107.6 H Carbon Dioxide 19 L BUN Creatinine 0.6 L Glucose 207 H POC Glucose 263 H Calcium 7.3 L Phosphorus Magnesium AST Alkaline Phosphatase Troponin T C-Reactive Protein Total Protein Albumin Triglycerides HDL Cholesterol Lipase Vitamin B12 TSH Urine WBC (Auto) Urine Chloride Urine Total Protein Vancomycin Trough Crossmatch 11/09/16 11/09/16 11/09/16 11:49 15:24 18:04 WBC RBC Hgb Hct MCV RDW Plt Count Lymph % (Auto) [place] % (Auto) [place] # Seg Neutrophils % Seg Neuts % (Manual) Lymphocytes % (Manual) Monocytes % (Manual) Basophils % (Manual) Nucleated RBC % Seg Neutrophils # Seg Neutrophils # Man Lymphocytes # (Manual) Monocytes # (Manual) Eosinophils # (Manual) Basophils # (Manual) PT INR APTT Heparin Anti-Xa Level POC ABG pH POC ABG pCO2 33.8 L POC ABG pO2 131 H Sodium Potassium Chloride Carbon Dioxide BUN Creatinine Glucose POC Glucose 269 H 242 H Calcium Phosphorus Magnesium AST Alkaline Phosphatase Troponin T C-Reactive Protein Total Protein Albumin Triglycerides HDL Cholesterol Lipase Vitamin B12 TSH Urine WBC (Auto) Urine Chloride Urine Total Protein Vancomycin Trough Crossmatch 11/09/16 11/10/16 11/10/16 22:57 04:30 04:30 WBC 15.7 H RBC 3.17 L Hgb 9.7 L Hct 30.2 L MCV RDW 16.2 H Plt Count Lymph % (Auto) [place] % (Auto) [place] # Seg Neutrophils % Seg Neuts % (Manual) Lymphocytes % (Manual) Monocytes % (Manual) Basophils % (Manual) Nucleated RBC % Seg Neutrophils # Seg Neutrophils # Man 8.5 H Lymphocytes # (Manual) Monocytes # (Manual) Eosinophils # (Manual) 0.5 H Basophils # (Manual) PT INR APTT Heparin Anti-Xa Level POC ABG pH POC ABG pCO2 POC ABG pO2 Sodium Potassium Chloride Carbon Dioxide 19 L BUN Creatinine 0.6 L Glucose 199 H POC Glucose 239 H Calcium 7.8 L Phosphorus Magnesium AST Alkaline Phosphatase Troponin T C-Reactive Protein Total Protein Albumin Triglycerides HDL Cholesterol Lipase Vitamin B12 TSH Urine WBC (Auto) Urine Chloride Urine Total Protein Vancomycin Trough Crossmatch 11/10/16 11/10/16 11/10/16 04:30 11:32 16:00 WBC RBC Hgb Hct MCV RDW Plt Count Lymph % (Auto) [place] % (Auto) [place] # Seg Neutrophils % Seg Neuts % (Manual) Lymphocytes % (Manual) Monocytes % (Manual) Basophils % (Manual) Nucleated RBC % Seg Neutrophils # Seg Neutrophils # Man Lymphocytes # (Manual) Monocytes # (Manual) Eosinophils # (Manual) Basophils # (Manual) PT INR APTT Heparin Anti-Xa Level 1.09 H < 0.10 L POC ABG pH POC ABG pCO2 POC ABG pO2 Sodium Potassium Chloride Carbon Dioxide BUN Creatinine Glucose POC Glucose 211 H Calcium Phosphorus Magnesium AST Alkaline Phosphatase Troponin T C-Reactive Protein Total Protein Albumin Triglycerides HDL Cholesterol Lipase Vitamin B12 TSH Urine WBC (Auto) Urine Chloride Urine Total Protein Vancomycin Trough Crossmatch 11/10/16 11/10/16 11/10/16 17:39 18:00 23:06 WBC RBC Hgb Hct MCV RDW Plt Count Lymph % (Auto) [place] % (Auto) [place] # Seg Neutrophils % Seg Neuts % (Manual) Lymphocytes % (Manual) Monocytes % (Manual) Basophils % (Manual) Nucleated RBC % Seg Neutrophils # Seg Neutrophils # Man Lymphocytes # (Manual) Monocytes # (Manual) Eosinophils # (Manual) Basophils # (Manual) PT INR APTT Heparin Anti-Xa Level 0.85 H POC ABG pH POC ABG pCO2 POC ABG pO2 Sodium Potassium Chloride Carbon Dioxide BUN Creatinine Glucose POC Glucose 249 H 220 H Calcium Phosphorus Magnesium AST Alkaline Phosphatase Troponin T C-Reactive Protein Total Protein Albumin Triglycerides HDL Cholesterol Lipase Vitamin B12 TSH Urine WBC (Auto) Urine Chloride Urine Total Protein Vancomycin Trough Crossmatch 11/11/16 11/11/16 11/11/16 05:56 06:15 06:15 WBC 13.3 H RBC 2.87 L Hgb 8.7 L Hct 27.2 L MCV RDW 16.4 H Plt Count Lymph % (Auto) [place] % (Auto) Smyth # 0.9 H Seg Neutrophils % 78.9 H Seg Neuts % (Manual) Lymphocytes % (Manual) Monocytes % (Manual) Basophils % (Manual) Nucleated RBC % Seg Neutrophils # 10.5 H Seg Neutrophils # Man Lymphocytes # (Manual) Monocytes # (Manual) Eosinophils # (Manual) Basophils # (Manual) PT INR APTT Heparin Anti-Xa Level POC ABG pH POC ABG pCO2 POC ABG pO2 Sodium Potassium 3.2 L Chloride Carbon Dioxide 19 L BUN Creatinine Glucose POC Glucose 117 H Calcium 7.6 L Phosphorus Magnesium AST Alkaline Phosphatase Troponin T C-Reactive Protein Total Protein Albumin Triglycerides HDL Cholesterol Lipase Vitamin B12 TSH Urine WBC (Auto) Urine Chloride Urine Total Protein Vancomycin Trough Crossmatch 11/11/16 11/11/16 11/11/16 12:26 16:58 17:33 WBC RBC Hgb Hct MCV RDW Plt Count Lymph % (Auto) [place] % (Auto) [place] # Seg Neutrophils % Seg Neuts % (Manual) Lymphocytes % (Manual) Monocytes % (Manual) Basophils % (Manual) Nucleated RBC % Seg Neutrophils # Seg Neutrophils # Man Lymphocytes # (Manual) Monocytes # (Manual) Eosinophils # (Manual) Basophils # (Manual) PT INR APTT Heparin Anti-Xa Level < 0.10 L POC ABG pH POC ABG pCO2 POC ABG pO2 Sodium Potassium Chloride Carbon Dioxide BUN Creatinine Glucose POC Glucose 114 H 161 H Calcium Phosphorus Magnesium AST Alkaline Phosphatase Troponin T C-Reactive Protein Total Protein Albumin Triglycerides HDL Cholesterol Lipase Vitamin B12 TSH Urine WBC (Auto) Urine Chloride Urine Total Protein Vancomycin Trough Crossmatch 11/12/16 11/12/16 11/12/16 05:00 05:00 05:00 WBC 12.8 H RBC 2.75 L Hgb 8.4 L Hct 25.7 L MCV RDW 16.3 H Plt Count Lymph % (Auto) [place] % (Auto) 7.5 H [place]th # 1.0 H Seg Neutrophils % 78.0 H Seg Neuts % (Manual) Lymphocytes % (Manual) Monocytes % (Manual) Basophils % (Manual) Nucleated RBC % Seg Neutrophils # 10.0 H Seg Neutrophils # Man Lymphocytes # (Manual) Monocytes # (Manual) Eosinophils # (Manual) Basophils # (Manual) PT INR APTT Heparin Anti-Xa Level 0.87 H POC ABG pH POC ABG pCO2 POC ABG pO2 Sodium Potassium 3.4 L Chloride Carbon Dioxide 19 L BUN Creatinine Glucose 112 H POC Glucose Calcium 7.7 L Phosphorus Magnesium AST Alkaline Phosphatase Troponin T C-Reactive Protein Total Protein Albumin Triglycerides HDL Cholesterol Lipase Vitamin B12 TSH Urine WBC (Auto) Urine Chloride Urine Total Protein Vancomycin Trough Crossmatch 11/12/16 11/12/16 11/13/16 11:18 16:40 00:44 WBC RBC Hgb Hct MCV RDW Plt Count Lymph % (Auto) [place] % (Auto) [place] # Seg Neutrophils % Seg Neuts % (Manual) Lymphocytes % (Manual) Monocytes % (Manual) Basophils % (Manual) Nucleated RBC % Seg Neutrophils # Seg Neutrophils # Man Lymphocytes # (Manual) Monocytes # (Manual) Eosinophils # (Manual) Basophils # (Manual) PT INR APTT Heparin Anti-Xa Level POC ABG pH POC ABG pCO2 POC ABG pO2 Sodium Potassium Chloride Carbon Dioxide BUN Creatinine Glucose POC Glucose 135 H 139 H 169 H Calcium Phosphorus Magnesium AST Alkaline Phosphatase Troponin T C-Reactive Protein Total Protein Albumin Triglycerides HDL Cholesterol Lipase Vitamin B12 TSH Urine WBC (Auto) Urine Chloride Urine Total Protein Vancomycin Trough Crossmatch 11/13/16 11/13/16 11/13/16 05:28 05:28 06:02 WBC 12.7 H RBC 2.93 L Hgb 9.0 L Hct 27.6 L MCV RDW 16.1 H Plt Count Lymph % (Auto) [place] % (Auto) [place] # Seg Neutrophils % 78.6 H Seg Neuts % (Manual) Lymphocytes % (Manual) Monocytes % (Manual) Basophils % (Manual) Nucleated RBC % Seg Neutrophils # 10.0 H Seg Neutrophils # Man Lymphocytes # (Manual) Monocytes # (Manual) Eosinophils # (Manual) Basophils # (Manual) PT INR APTT Heparin Anti-Xa Level POC ABG pH POC ABG pCO2 POC ABG pO2 Sodium Potassium Chloride Carbon Dioxide 17 L BUN Creatinine Glucose 116 H POC Glucose 112 H Calcium 7.8 L Phosphorus Magnesium AST Alkaline Phosphatase Troponin T C-Reactive Protein Total Protein Albumin Triglycerides HDL Cholesterol Lipase Vitamin B12 TSH Urine WBC (Auto) Urine Chloride Urine Total Protein Vancomycin Trough Crossmatch 11/13/16 11/13/16 11/13/16 12:34 16:55 17:00 WBC RBC Hgb Hct MCV RDW Plt Count Lymph % (Auto) [place] % (Auto) [place] # Seg Neutrophils % Seg Neuts % (Manual) Lymphocytes % (Manual) Monocytes % (Manual) Basophils % (Manual) Nucleated RBC % Seg Neutrophils # Seg Neutrophils # Man Lymphocytes # (Manual) Monocytes # (Manual) Eosinophils # (Manual) Basophils # (Manual) PT INR APTT Heparin Anti-Xa Level POC ABG pH POC ABG pCO2 22.9 L POC ABG pO2 53 L Sodium Potassium Chloride Carbon Dioxide BUN Creatinine Glucose POC Glucose 109 H 122 H Calcium Phosphorus Magnesium AST Alkaline Phosphatase Troponin T C-Reactive Protein Total Protein Albumin Triglycerides HDL Cholesterol Lipase Vitamin B12 TSH Urine WBC (Auto) Urine Chloride Urine Total Protein Vancomycin Trough Crossmatch 11/13/16 11/14/16 11/14/16 23:33 04:42 04:42 WBC 11.7 H RBC 3.01 L Hgb 9.3 L Hct 28.9 L MCV RDW 16.5 H Plt Count Lymph % (Auto) [place] % (Auto) [place] # Seg Neutrophils % Seg Neuts % (Manual) 79.0 H Lymphocytes % (Manual) 10.0 L Monocytes % (Manual) Basophils % (Manual) Nucleated RBC % Seg Neutrophils # Seg Neutrophils # Man 9.2 H Lymphocytes # (Manual) Monocytes # (Manual) Eosinophils # (Manual) Basophils # (Manual) PT INR APTT Heparin Anti-Xa Level POC ABG pH POC ABG pCO2 POC ABG pO2 Sodium Potassium Chloride Carbon Dioxide 16 L BUN Creatinine Glucose 102 H POC Glucose 173 H Calcium 7.5 L Phosphorus Magnesium AST Alkaline Phosphatase Troponin T C-Reactive Protein Total Protein Albumin Triglycerides HDL Cholesterol Lipase Vitamin B12 TSH Urine WBC (Auto) Urine Chloride Urine Total Protein Vancomycin Trough Crossmatch 11/14/16 11/14/16 11/14/16 11:43 16:57 19:45 WBC RBC Hgb Hct MCV RDW Plt Count Lymph % (Auto) [place] % (Auto) [place] # Seg Neutrophils % Seg Neuts % (Manual) Lymphocytes % (Manual) Monocytes % (Manual) Basophils % (Manual) Nucleated RBC % Seg Neutrophils # Seg Neutrophils # Man Lymphocytes # (Manual) Monocytes # (Manual) Eosinophils # (Manual) Basophils # (Manual) PT INR APTT Heparin Anti-Xa Level 0.71 H POC ABG pH POC ABG pCO2 POC ABG pO2 Sodium Potassium Chloride Carbon Dioxide BUN Creatinine Glucose POC Glucose 130 H 209 H Calcium Phosphorus Magnesium AST Alkaline Phosphatase Troponin T C-Reactive Protein Total Protein Albumin Triglycerides HDL Cholesterol Lipase Vitamin B12 TSH Urine WBC (Auto) Urine Chloride Urine Total Protein Vancomycin Trough Crossmatch 0311/15/16 11/16/16 23:43 23:47 06:11 WBC RBC Hgb Hct MCV RDW Plt Count Lymph % (Auto) [place] % (Auto) [place] # Seg Neutrophils % Seg Neuts % (Manual) Lymphocytes % (Manual) Monocytes % (Manual) Basophils % (Manual) Nucleated RBC % Seg Neutrophils # Seg Neutrophils # Man Lymphocytes # (Manual) Monocytes # (Manual) Eosinophils # (Manual) Basophils # (Manual) PT INR APTT Heparin Anti-Xa Level POC ABG pH POC ABG pCO2 POC ABG pO2 Sodium Potassium Chloride Carbon Dioxide BUN Creatinine Glucose POC Glucose 167 H 114 H 125 H Calcium Phosphorus Magnesium AST Alkaline Phosphatase Troponin T C-Reactive Protein Total Protein Albumin Triglycerides HDL Cholesterol Lipase Vitamin B12 TSH Urine WBC (Auto) Urine Chloride Urine Total Protein Vancomycin Trough Crossmatch 11/16/16 11/16/16 11/16/16 09:05 09:05 09:05 WBC RBC 2.53 L Hgb 8.0 L Hct 23.7 L MCV RDW 15.9 H Plt Count Lymph % (Auto) [place] % (Auto) [place] # Seg Neutrophils % Seg Neuts % (Manual) Lymphocytes % (Manual) Monocytes % (Manual) Basophils % (Manual) Nucleated RBC % Seg Neutrophils # Seg Neutrophils # Man Lymphocytes # (Manual) Monocytes # (Manual) Eosinophils # (Manual) Basophils # (Manual) PT INR APTT Heparin Anti-Xa Level POC ABG pH POC ABG pCO2 POC ABG pO2 Sodium Potassium 2.5 L* D Chloride Carbon Dioxide 19 L BUN 5 L Creatinine Glucose 103 H POC Glucose Calcium 6.6 L Phosphorus Magnesium 1.3 L AST Alkaline Phosphatase Troponin T C-Reactive Protein Total Protein Albumin Triglycerides HDL Cholesterol Lipase Vitamin B12 TSH Urine WBC (Auto) Urine Chloride Urine Total Protein Vancomycin Trough Crossmatch 11/16/16 11/16/16 11/16/16 12:15 13:00 14:45 WBC RBC Hgb Hct MCV RDW Plt Count Lymph % (Auto) [place] % (Auto) [place] # Seg Neutrophils % Seg Neuts % (Manual) Lymphocytes % (Manual) Monocytes % (Manual) Basophils % (Manual) Nucleated RBC % Seg Neutrophils # Seg Neutrophils # Man Lymphocytes # (Manual) Monocytes # (Manual) Eosinophils # (Manual) Basophils # (Manual) PT 19.1 H INR 1.61 H APTT Heparin Anti-Xa Level POC ABG pH 7.479 H POC ABG pCO2 23.6 L POC ABG pO2 Sodium Potassium Chloride Carbon Dioxide BUN Creatinine Glucose POC Glucose 129 H Calcium Phosphorus Magnesium AST Alkaline Phosphatase Troponin T C-Reactive Protein Total Protein Albumin Triglycerides HDL Cholesterol Lipase Vitamin B12 TSH Urine WBC (Auto) Urine Chloride Urine Total Protein Vancomycin Trough Crossmatch 11/16/16 11/17/16 11/17/16 17:43 00:30 04:32 WBC RBC Hgb Hct MCV RDW Plt Count Lymph % (Auto) [place] % (Auto) [place] # Seg Neutrophils % Seg Neuts % (Manual) Lymphocytes % (Manual) Monocytes % (Manual) Basophils % (Manual) Nucleated RBC % Seg Neutrophils # Seg Neutrophils # Man Lymphocytes # (Manual) Monocytes # (Manual) Eosinophils # (Manual) Basophils # (Manual) PT INR APTT Heparin Anti-Xa Level POC ABG pH POC ABG pCO2 POC ABG pO2 Sodium Potassium Chloride Carbon Dioxide 18 L BUN Creatinine Glucose 127 H POC Glucose 224 H 259 H Calcium 7.5 L Phosphorus Magnesium AST Alkaline Phosphatase Troponin T C-Reactive Protein Total Protein Albumin Triglycerides HDL Cholesterol Lipase Vitamin B12 TSH Urine WBC (Auto) Urine Chloride Urine Total Protein Vancomycin Trough Crossmatch 11/17/16 11/17/16 11/17/16 05:42 08:34 12:19 WBC RBC 2.85 L Hgb 8.9 L Hct 26.5 L MCV RDW 16.2 H Plt Count Lymph % (Auto) [place] % (Auto) [place] # Seg Neutrophils % Seg Neuts % (Manual) Lymphocytes % (Manual) Monocytes % (Manual) Basophils % (Manual) Nucleated RBC % Seg Neutrophils # Seg Neutrophils # Man Lymphocytes # (Manual) Monocytes # (Manual) Eosinophils # (Manual) Basophils # (Manual) PT INR APTT Heparin Anti-Xa Level POC ABG pH POC ABG pCO2 POC ABG pO2 Sodium Potassium Chloride Carbon Dioxide BUN Creatinine Glucose POC Glucose 118 H 264 H Calcium Phosphorus Magnesium AST Alkaline Phosphatase Troponin T C-Reactive Protein Total Protein Albumin Triglycerides HDL Cholesterol Lipase Vitamin B12 TSH Urine WBC (Auto) Urine Chloride Urine Total Protein Vancomycin Trough Crossmatch 11/17/16 11/17/16 11/18/16 16:52 23:44 04:53 WBC RBC Hgb Hct MCV RDW Plt Count Lymph % (Auto) [place] % (Auto) [place] # Seg Neutrophils % Seg Neuts % (Manual) Lymphocytes % (Manual) Monocytes % (Manual) Basophils % (Manual) Nucleated RBC % Seg Neutrophils # Seg Neutrophils # Man Lymphocytes # (Manual) Monocytes # (Manual) Eosinophils # (Manual) Basophils # (Manual) PT INR APTT Heparin Anti-Xa Level POC ABG pH POC ABG pCO2 POC ABG pO2 Sodium Potassium Chloride Carbon Dioxide BUN Creatinine Glucose POC Glucose 256 H 109 H 287 H Calcium Phosphorus Magnesium AST Alkaline Phosphatase Troponin T C-Reactive Protein Total Protein Albumin Triglycerides HDL Cholesterol Lipase Vitamin B12 TSH Urine WBC (Auto) Urine Chloride Urine Total Protein Vancomycin Trough Crossmatch 11/18/16 11/18/16 11/18/16 05:31 05:45 05:45 WBC RBC Hgb Hct MCV RDW Plt Count Lymph % (Auto) [place] % (Auto) [place] # Seg Neutrophils % Seg Neuts % (Manual) Lymphocytes % (Manual) Monocytes % (Manual) Basophils % (Manual) Nucleated RBC % Seg Neutrophils # Seg Neutrophils # Man Lymphocytes # (Manual) Monocytes # (Manual) Eosinophils # (Manual) Basophils # (Manual) PT 20.1 H INR 1.72 H APTT 131.1 H* Heparin Anti-Xa Level 0.18 L POC ABG pH 7.252 L POC ABG pCO2 32.0 L POC ABG pO2 Sodium Potassium Chloride 107.1 H Carbon Dioxide 17 L BUN Creatinine Glucose 284 H POC Glucose Calcium 7.2 L Phosphorus Magnesium AST Alkaline Phosphatase Troponin T C-Reactive Protein Total Protein 5.5 L Albumin 2.1 L Triglycerides HDL Cholesterol Lipase Vitamin B12 TSH Urine WBC (Auto) Urine Chloride Urine Total Protein Vancomycin Trough Crossmatch 11/18/16 11/18/16 11/18/16 05:45 09:17 12:06 WBC 13.3 H RBC 3.07 L Hgb 9.2 L Hct 29.5 L MCV RDW 16.9 H Plt Count Lymph % (Auto) 11.0 L [place] % (Auto) [place] # Seg Neutrophils % 82.9 H Seg Neuts % (Manual) Lymphocytes % (Manual) Monocytes % (Manual) Basophils % (Manual) Nucleated RBC % Seg Neutrophils # 11.0 H Seg Neutrophils # Man Lymphocytes # (Manual) Monocytes # (Manual) Eosinophils # (Manual) Basophils # (Manual) PT INR APTT Heparin Anti-Xa Level POC ABG pH POC ABG pCO2 24.3 L POC ABG pO2 79 L Sodium Potassium Chloride Carbon Dioxide BUN Creatinine Glucose POC Glucose 433 H Calcium Phosphorus Magnesium AST Alkaline Phosphatase Troponin T C-Reactive Protein Total Protein Albumin Triglycerides HDL Cholesterol Lipase Vitamin B12 TSH Urine WBC (Auto) Urine Chloride Urine Total Protein Vancomycin Trough Crossmatch 11/18/16 11/18/16 11/18/16 12:09 13:00 17:22 WBC 12.6 H RBC 2.79 L Hgb 8.6 L Hct 26.6 L MCV RDW 17.0 H Plt Count Lymph % (Auto) [place] % (Auto) [place] # Seg Neutrophils % Seg Neuts % (Manual) 90.0 H Lymphocytes % (Manual) 8.0 L Monocytes % (Manual) Basophils % (Manual) Nucleated RBC % Seg Neutrophils # Seg Neutrophils # Man 11.3 H Lymphocytes # (Manual) 1.0 L Monocytes # (Manual) Eosinophils # (Manual) Basophils # (Manual) PT INR APTT Heparin Anti-Xa Level POC ABG pH POC ABG pCO2 POC ABG pO2 Sodium Potassium Chloride Carbon Dioxide BUN Creatinine Glucose POC Glucose 429 H 297 H Calcium Phosphorus Magnesium AST Alkaline Phosphatase Troponin T C-Reactive Protein Total Protein Albumin Triglycerides HDL Cholesterol Lipase Vitamin B12 TSH Urine WBC (Auto) Urine Chloride Urine Total Protein Vancomycin Trough Crossmatch 11/18/16 11/19/16 11/19/16 23:27 04:30 04:30 WBC RBC 2.92 L Hgb 8.8 L Hct 27.0 L MCV RDW 16.6 H Plt Count Lymph % (Auto) [place] % (Auto) [place] # Seg Neutrophils % Seg Neuts % (Manual) Lymphocytes % (Manual) Monocytes % (Manual) Basophils % (Manual) Nucleated RBC % Seg Neutrophils # Seg Neutrophils # Man Lymphocytes # (Manual) Monocytes # (Manual) Eosinophils # (Manual) Basophils # (Manual) PT INR APTT Heparin Anti-Xa Level POC ABG pH POC ABG pCO2 POC ABG pO2 Sodium Potassium 3.0 L Chloride 107.9 H Carbon Dioxide 20 L BUN Creatinine Glucose 231 H POC Glucose 268 H Calcium 7.1 L Phosphorus Magnesium AST Alkaline Phosphatase Troponin T C-Reactive Protein Total Protein 5.5 L Albumin 2.1 L Triglycerides HDL Cholesterol Lipase Vitamin B12 TSH Urine WBC (Auto) Urine Chloride Urine Total Protein Vancomycin Trough Crossmatch 11/19/16 11/19/16 11/19/16 04:40 06:40 10:00 WBC RBC Hgb Hct MCV RDW Plt Count Lymph % (Auto) [place] % (Auto) [place] # Seg Neutrophils % Seg Neuts % (Manual) Lymphocytes % (Manual) Monocytes % (Manual) Basophils % (Manual) Nucleated RBC % Seg Neutrophils # Seg Neutrophils # Man Lymphocytes # (Manual) Monocytes # (Manual) Eosinophils # (Manual) Basophils # (Manual) PT INR APTT Heparin Anti-Xa Level POC ABG pH POC ABG pCO2 POC ABG pO2 Sodium Potassium Chloride Carbon Dioxide BUN Creatinine Glucose POC Glucose 267 H 244 H Calcium Phosphorus Magnesium 1.4 L AST Alkaline Phosphatase Troponin T C-Reactive Protein Total Protein Albumin Triglycerides HDL Cholesterol Lipase Vitamin B12 TSH Urine WBC (Auto) Urine Chloride Urine Total Protein Vancomycin Trough Crossmatch 11/19/16 11/19/16 11/19/16 12:08 18:10 23:40 WBC RBC Hgb Hct MCV RDW Plt Count Lymph % (Auto) [place] % (Auto) [place] # Seg Neutrophils % Seg Neuts % (Manual) Lymphocytes % (Manual) Monocytes % (Manual) Basophils % (Manual) Nucleated RBC % Seg Neutrophils # Seg Neutrophils # Man Lymphocytes # (Manual) Monocytes # (Manual) Eosinophils # (Manual) Basophils # (Manual) PT INR APTT Heparin Anti-Xa Level POC ABG pH POC ABG pCO2 POC ABG pO2 Sodium Potassium Chloride Carbon Dioxide BUN Creatinine Glucose POC Glucose 254 H 265 H 197 H Calcium Phosphorus Magnesium AST Alkaline Phosphatase Troponin T C-Reactive Protein Total Protein Albumin Triglycerides HDL Cholesterol Lipase Vitamin B12 TSH Urine WBC (Auto) Urine Chloride Urine Total Protein Vancomycin Trough Crossmatch 11/20/16 11/20/16 11/20/16 05:00 05:44 11:33 WBC RBC Hgb Hct MCV RDW Plt Count Lymph % (Auto) [place] % (Auto) [place] # Seg Neutrophils % Seg Neuts % (Manual) Lymphocytes % (Manual) Monocytes % (Manual) Basophils % (Manual) Nucleated RBC % Seg Neutrophils # Seg Neutrophils # Man Lymphocytes # (Manual) Monocytes # (Manual) Eosinophils # (Manual) Basophils # (Manual) PT INR APTT Heparin Anti-Xa Level POC ABG pH POC ABG pCO2 POC ABG pO2 Sodium Potassium 3.4 L Chloride 107.4 H Carbon Dioxide 20 L BUN Creatinine Glucose 140 H POC Glucose 163 H 108 H Calcium 7.2 L Phosphorus Magnesium AST Alkaline Phosphatase Troponin T C-Reactive Protein Total Protein Albumin Triglycerides HDL Cholesterol Lipase Vitamin B12 TSH Urine WBC (Auto) Urine Chloride Urine Total Protein Vancomycin Trough Crossmatch 11/20/16 11/20/1617 13:03 16:45 23:26 WBC RBC Hgb Hct MCV RDW Plt Count Lymph % (Auto) [place] % (Auto) [place] # Seg Neutrophils % Seg Neuts % (Manual) Lymphocytes % (Manual) Monocytes % (Manual) Basophils % (Manual) Nucleated RBC % Seg Neutrophils # Seg Neutrophils # Man Lymphocytes # (Manual) Monocytes # (Manual) Eosinophils # (Manual) Basophils # (Manual) PT INR APTT Heparin Anti-Xa Level POC ABG pH POC ABG pCO2 POC ABG pO2 Sodium Potassium Chloride Carbon Dioxide BUN Creatinine Glucose POC Glucose 113 H 168 H Calcium Phosphorus Magnesium AST Alkaline Phosphatase Troponin T C-Reactive Protein Total Protein Albumin Triglycerides HDL Cholesterol Lipase Vitamin B12 TSH Urine WBC (Auto) Urine Chloride Urine Total Protein Vancomycin Trough 45.8 H Crossmatch 11/21/16 11/21/16 11/21/16 05:00 05:27 09:50 WBC RBC Hgb Hct MCV RDW Plt Count Lymph % (Auto) [place] % (Auto) [place] # Seg Neutrophils % Seg Neuts % (Manual) Lymphocytes % (Manual) Monocytes % (Manual) Basophils % (Manual) Nucleated RBC % Seg Neutrophils # Seg Neutrophils # Man Lymphocytes # (Manual) Monocytes # (Manual) Eosinophils # (Manual) Basophils # (Manual) PT INR APTT Heparin Anti-Xa Level POC ABG pH POC ABG pCO2 POC ABG pO2 Sodium 133 L D Potassium Chloride Carbon Dioxide 19 L BUN Creatinine Glucose 280 H POC Glucose 222 H Calcium 7.4 L Phosphorus Magnesium AST Alkaline Phosphatase Troponin T C-Reactive Protein Total Protein Albumin Triglycerides HDL Cholesterol Lipase Vitamin B12 TSH Urine WBC (Auto) Urine Chloride Urine Total Protein Vancomycin Trough 30.4 H Crossmatch 11/21/16 11/21/16 11/21/16 12:36 17:17 18:34 WBC RBC Hgb Hct MCV RDW Plt Count Lymph % (Auto) [place] % (Auto) [place] # Seg Neutrophils % Seg Neuts % (Manual) Lymphocytes % (Manual) Monocytes % (Manual) Basophils % (Manual) Nucleated RBC % Seg Neutrophils # Seg Neutrophils # Man Lymphocytes # (Manual) Monocytes # (Manual) Eosinophils # (Manual) Basophils # (Manual) PT INR APTT Heparin Anti-Xa Level POC ABG pH POC ABG pCO2 POC ABG pO2 Sodium Potassium Chloride Carbon Dioxide BUN Creatinine Glucose POC Glucose 306 H 339 H 318 H Calcium Phosphorus Magnesium AST Alkaline Phosphatase Troponin T C-Reactive Protein Total Protein Albumin Triglycerides HDL Cholesterol Lipase Vitamin B12 TSH Urine WBC (Auto) Urine Chloride Urine Total Protein Vancomycin Trough Crossmatch 11/21/16 11/22/16 11/22/16 23:16 07:19 11:49 WBC 11.1 H RBC 2.60 L Hgb 7.8 L Hct 24.4 L MCV RDW 16.3 H Plt Count Lymph % (Auto) [place] % (Auto) [place] # Seg Neutrophils % 76.8 H Seg Neuts % (Manual) Lymphocytes % (Manual) Monocytes % (Manual) Basophils % (Manual) Nucleated RBC % Seg Neutrophils # 8.5 H Seg Neutrophils # Man Lymphocytes # (Manual) Monocytes # (Manual) Eosinophils # (Manual) Basophils # (Manual) PT INR APTT Heparin Anti-Xa Level POC ABG pH POC ABG pCO2 POC ABG pO2 Sodium Potassium Chloride Carbon Dioxide BUN Creatinine Glucose POC Glucose 286 H 371 H Calcium Phosphorus Magnesium AST Alkaline Phosphatase Troponin T C-Reactive Protein Total Protein Albumin Triglycerides HDL Cholesterol Lipase Vitamin B12 TSH Urine WBC (Auto) Urine Chloride Urine Total Protein Vancomycin Trough Crossmatch 11/22/16 11/22/16 11/22/16 11:50 11:50 17:34 WBC RBC Hgb Hct MCV RDW Plt Count Lymph % (Auto) [place] % (Auto) [place] # Seg Neutrophils % Seg Neuts % (Manual) Lymphocytes % (Manual) Monocytes % (Manual) Basophils % (Manual) Nucleated RBC % Seg Neutrophils # Seg Neutrophils # Man Lymphocytes # (Manual) Monocytes # (Manual) Eosinophils # (Manual) Basophils # (Manual) PT INR APTT Heparin Anti-Xa Level POC ABG pH POC ABG pCO2 POC ABG pO2 Sodium 130 L Potassium Chloride Carbon Dioxide 19 L BUN 20 H Creatinine Glucose 266 H POC Glucose 262 H 284 H Calcium 7.2 L Phosphorus Magnesium AST Alkaline Phosphatase Troponin T C-Reactive Protein Total Protein Albumin Triglycerides HDL Cholesterol Lipase Vitamin B12 TSH Urine WBC (Auto) Urine Chloride Urine Total Protein Vancomycin Trough Crossmatch 11/22/16 11/22/16 11/22/16 17:43 20:04 23:38 WBC RBC Hgb Hct MCV RDW Plt Count Lymph % (Auto) [place] % (Auto) [place] # Seg Neutrophils % Seg Neuts % (Manual) Lymphocytes % (Manual) Monocytes % (Manual) Basophils % (Manual) Nucleated RBC % Seg Neutrophils # Seg Neutrophils # Man Lymphocytes # (Manual) Monocytes # (Manual) Eosinophils # (Manual) Basophils # (Manual) PT INR APTT Heparin Anti-Xa Level POC ABG pH 7.492 H POC ABG pCO2 23.2 L POC ABG pO2 60 L Sodium Potassium Chloride Carbon Dioxide BUN Creatinine Glucose POC Glucose 261 H 253 H Calcium Phosphorus Magnesium AST Alkaline Phosphatase Troponin T C-Reactive Protein Total Protein Albumin Triglycerides HDL Cholesterol Lipase Vitamin B12 TSH Urine WBC (Auto) Urine Chloride Urine Total Protein Vancomycin Trough Crossmatch 11/23/16 11/23/16 11/23/16 06:27 08:20 11:54 WBC RBC Hgb 8.2 L Hct 24.9 L MCV RDW Plt Count Lymph % (Auto) [place] % (Auto) [place] # Seg Neutrophils % Seg Neuts % (Manual) Lymphocytes % (Manual) Monocytes % (Manual) Basophils % (Manual) Nucleated RBC % Seg Neutrophils # Seg Neutrophils # Man Lymphocytes # (Manual) Monocytes # (Manual) Eosinophils # (Manual) Basophils # (Manual) PT INR APTT Heparin Anti-Xa Level POC ABG pH POC ABG pCO2 POC ABG pO2 Sodium Potassium Chloride Carbon Dioxide BUN Creatinine Glucose POC Glucose 333 H 286 H Calcium Phosphorus Magnesium AST Alkaline Phosphatase Troponin T C-Reactive Protein Total Protein Albumin Triglycerides HDL Cholesterol Lipase Vitamin B12 TSH Urine WBC (Auto) Urine Chloride Urine Total Protein Vancomycin Trough Crossmatch 11/23/16 11/23/16 11/24/16 17:53 23:51 00:12 WBC RBC Hgb Hct MCV RDW Plt Count Lymph % (Auto) [place] % (Auto) [place] # Seg Neutrophils % Seg Neuts % (Manual) Lymphocytes % (Manual) Monocytes % (Manual) Basophils % (Manual) Nucleated RBC % Seg Neutrophils # Seg Neutrophils # Man Lymphocytes # (Manual) Monocytes # (Manual) Eosinophils # (Manual) Basophils # (Manual) PT INR APTT Heparin Anti-Xa Level POC ABG pH POC ABG pCO2 POC ABG pO2 Sodium Potassium Chloride Carbon Dioxide BUN Creatinine Glucose POC Glucose 195 H 214 H 223 H Calcium Phosphorus Magnesium AST Alkaline Phosphatase Troponin T C-Reactive Protein Total Protein Albumin Triglycerides HDL Cholesterol Lipase Vitamin B12 TSH Urine WBC (Auto) Urine Chloride Urine Total Protein Vancomycin Trough Crossmatch 11/24/16 11/24/16 11/24/16 04:50 04:50 06:08 WBC RBC 2.74 L Hgb 8.4 L Hct 26.1 L MCV RDW 16.0 H Plt Count Lymph % (Auto) [place] % (Auto) [place] # Seg Neutrophils % Seg Neuts % (Manual) Lymphocytes % (Manual) Monocytes % (Manual) Basophils % (Manual) Nucleated RBC % Seg Neutrophils # Seg Neutrophils # Man Lymphocytes # (Manual) Monocytes # (Manual) Eosinophils # (Manual) Basophils # (Manual) PT INR APTT Heparin Anti-Xa Level POC ABG pH POC ABG pCO2 POC ABG pO2 Sodium 133 L Potassium Chloride Carbon Dioxide 19 L BUN 23 H Creatinine Glucose 200 H POC Glucose 187 H Calcium 7.2 L Phosphorus Magnesium AST Alkaline Phosphatase Troponin T C-Reactive Protein Total Protein Albumin Triglycerides HDL Cholesterol Lipase Vitamin B12 TSH Urine WBC (Auto) Urine Chloride Urine Total Protein Vancomycin Trough Crossmatch 11/24/16 11/24/16 11/24/16 12:02 17:43 23:35 WBC RBC Hgb Hct MCV RDW Plt Count Lymph % (Auto) [place] % (Auto) [place] # Seg Neutrophils % Seg Neuts % (Manual) Lymphocytes % (Manual) Monocytes % (Manual) Basophils % (Manual) Nucleated RBC % Seg Neutrophils # Seg Neutrophils # Man Lymphocytes # (Manual) Monocytes # (Manual) Eosinophils # (Manual) Basophils # (Manual) PT INR APTT Heparin Anti-Xa Level POC ABG pH POC ABG pCO2 POC ABG pO2 Sodium Potassium Chloride Carbon Dioxide BUN Creatinine Glucose POC Glucose 250 H 226 H 230 H Calcium Phosphorus Magnesium AST Alkaline Phosphatase Troponin T C-Reactive Protein Total Protein Albumin Triglycerides HDL Cholesterol Lipase Vitamin B12 TSH Urine WBC (Auto) Urine Chloride Urine Total Protein Vancomycin Trough Crossmatch 11/25/16 11/25/16 11/25/16 05:47 11:37 18:00 WBC RBC Hgb Hct MCV RDW Plt Count Lymph % (Auto) [place] % (Auto) [place] # Seg Neutrophils % Seg Neuts % (Manual) Lymphocytes % (Manual) Monocytes % (Manual) Basophils % (Manual) Nucleated RBC % Seg Neutrophils # Seg Neutrophils # Man Lymphocytes # (Manual) Monocytes # (Manual) Eosinophils # (Manual) Basophils # (Manual) PT INR APTT Heparin Anti-Xa Level POC ABG pH POC ABG pCO2 POC ABG pO2 Sodium Potassium Chloride Carbon Dioxide BUN Creatinine Glucose POC Glucose 229 H 226 H 226 H Calcium Phosphorus Magnesium AST Alkaline Phosphatase Troponin T C-Reactive Protein Total Protein Albumin Triglycerides HDL Cholesterol Lipase Vitamin B12 TSH Urine WBC (Auto) Urine Chloride Urine Total Protein Vancomycin Trough Crossmatch 11/26/16 11/26/16 11/26/16 05:43 12:05 17:05 WBC RBC Hgb Hct MCV RDW Plt Count Lymph % (Auto) [place] % (Auto) [place] # Seg Neutrophils % Seg Neuts % (Manual) Lymphocytes % (Manual) Monocytes % (Manual) Basophils % (Manual) Nucleated RBC % Seg Neutrophils # Seg Neutrophils # Man Lymphocytes # (Manual) Monocytes # (Manual) Eosinophils # (Manual) Basophils # (Manual) PT INR APTT Heparin Anti-Xa Level POC ABG pH POC ABG pCO2 POC ABG pO2 Sodium Potassium Chloride Carbon Dioxide BUN Creatinine Glucose POC Glucose 262 H 260 H 193 H Calcium Phosphorus Magnesium AST Alkaline Phosphatase Troponin T C-Reactive Protein Total Protein Albumin Triglycerides HDL Cholesterol Lipase Vitamin B12 TSH Urine WBC (Auto) Urine Chloride Urine Total Protein Vancomycin Trough Crossmatch 11/26/16 11/27/16 11/27/16 23:46 05:49 12:36 WBC RBC Hgb Hct MCV RDW Plt Count Lymph % (Auto) [place] % (Auto) [place] # Seg Neutrophils % Seg Neuts % (Manual) Lymphocytes % (Manual) Monocytes % (Manual) Basophils % (Manual) Nucleated RBC % Seg Neutrophils # Seg Neutrophils # Man Lymphocytes # (Manual) Monocytes # (Manual) Eosinophils # (Manual) Basophils # (Manual) PT INR APTT Heparin Anti-Xa Level POC ABG pH POC ABG pCO2 POC ABG pO2 Sodium Potassium Chloride Carbon Dioxide BUN Creatinine Glucose POC Glucose 183 H 182 H 250 H Calcium Phosphorus Magnesium AST Alkaline Phosphatase Troponin T C-Reactive Protein Total Protein Albumin Triglycerides HDL Cholesterol Lipase Vitamin B12 TSH Urine WBC (Auto) Urine Chloride Urine Total Protein Vancomycin Trough Crossmatch 11/27/16 11/27/16 11/27/16 17:02 17:45 22:42 WBC RBC Hgb Hct MCV RDW Plt Count Lymph % (Auto) [place] % (Auto) [place] # Seg Neutrophils % Seg Neuts % (Manual) Lymphocytes % (Manual) Monocytes % (Manual) Basophils % (Manual) Nucleated RBC % Seg Neutrophils # Seg Neutrophils # Man Lymphocytes # (Manual) Monocytes # (Manual) Eosinophils # (Manual) Basophils # (Manual) PT INR APTT Heparin Anti-Xa Level POC ABG pH 7.331 L POC ABG pCO2 POC ABG pO2 46 L Sodium Potassium Chloride Carbon Dioxide BUN Creatinine Glucose POC Glucose 275 H Calcium Phosphorus Magnesium AST Alkaline Phosphatase Troponin T 0.093 H C-Reactive Protein Total Protein Albumin Triglycerides HDL Cholesterol Lipase Vitamin B12 TSH Urine WBC (Auto) Urine Chloride Urine Total Protein Vancomycin Trough Crossmatch 11/27/16 11/28/16 11/28/16 23:28 05:46 05:46 WBC RBC 2.88 L Hgb 8.9 L Hct 27.7 L MCV RDW 17.2 H Plt Count Lymph % (Auto) [place] % (Auto) [place] # Seg Neutrophils % Seg Neuts % (Manual) Lymphocytes % (Manual) Monocytes % (Manual) Basophils % (Manual) Nucleated RBC % Seg Neutrophils # Seg Neutrophils # Man Lymphocytes # (Manual) Monocytes # (Manual) Eosinophils # (Manual) Basophils # (Manual) PT 15.1 H INR 1.20 H APTT Heparin Anti-Xa Level POC ABG pH POC ABG pCO2 POC ABG pO2 Sodium Potassium Chloride Carbon Dioxide BUN Creatinine Glucose POC Glucose 237 H Calcium Phosphorus Magnesium AST Alkaline Phosphatase Troponin T C-Reactive Protein Total Protein Albumin Triglycerides HDL Cholesterol Lipase Vitamin B12 TSH Urine WBC (Auto) Urine Chloride Urine Total Protein Vancomycin Trough Crossmatch 11/28/16 11/28/16 11/28/16 05:46 05:46 05:56 WBC RBC Hgb Hct MCV RDW Plt Count Lymph % (Auto) [place] % (Auto) [place] # Seg Neutrophils % Seg Neuts % (Manual) Lymphocytes % (Manual) Monocytes % (Manual) Basophils % (Manual) Nucleated RBC % Seg Neutrophils # Seg Neutrophils # Man Lymphocytes # (Manual) Monocytes # (Manual) Eosinophils # (Manual) Basophils # (Manual) PT INR APTT Heparin Anti-Xa Level POC ABG pH POC ABG pCO2 POC ABG pO2 Sodium Potassium Chloride Carbon Dioxide 21 L BUN 27 H Creatinine Glucose 237 H POC Glucose 275 H Calcium 8.1 L Phosphorus Magnesium AST Alkaline Phosphatase Troponin T 0.090 H C-Reactive Protein Total Protein Albumin Triglycerides 154 H HDL Cholesterol 38 L Lipase Vitamin B12 TSH Urine WBC (Auto) Urine Chloride Urine Total Protein Vancomycin Trough Crossmatch 11/28/16 11/28/16 11/28/16 11:20 18:16 23:30 WBC RBC Hgb Hct MCV RDW Plt Count Lymph % (Auto) [place] % (Auto) [place] # Seg Neutrophils % Seg Neuts % (Manual) Lymphocytes % (Manual) Monocytes % (Manual) Basophils % (Manual) Nucleated RBC % Seg Neutrophils # Seg Neutrophils # Man Lymphocytes # (Manual) Monocytes # (Manual) Eosinophils # (Manual) Basophils # (Manual) PT INR APTT Heparin Anti-Xa Level POC ABG pH POC ABG pCO2 POC ABG pO2 Sodium Potassium Chloride Carbon Dioxide BUN Creatinine Glucose POC Glucose 277 H 222 H 143 H Calcium Phosphorus Magnesium AST Alkaline Phosphatase Troponin T C-Reactive Protein Total Protein Albumin Triglycerides HDL Cholesterol Lipase Vitamin B12 TSH Urine WBC (Auto) Urine Chloride Urine Total Protein Vancomycin Trough Crossmatch 11/29/16 11/29/16 11/29/16 04:46 05:42 12:10 WBC RBC Hgb Hct MCV RDW Plt Count Lymph % (Auto) [place] % (Auto) [place] # Seg Neutrophils % Seg Neuts % (Manual) Lymphocytes % (Manual) Monocytes % (Manual) Basophils % (Manual) Nucleated RBC % Seg Neutrophils # Seg Neutrophils # Man Lymphocytes # (Manual) Monocytes # (Manual) Eosinophils # (Manual) Basophils # (Manual) PT 16.7 H INR 1.36 H APTT Heparin Anti-Xa Level POC ABG pH POC ABG pCO2 POC ABG pO2 Sodium Potassium Chloride Carbon Dioxide BUN Creatinine Glucose POC Glucose 165 H 232 H Calcium Phosphorus Magnesium AST Alkaline Phosphatase Troponin T C-Reactive Protein Total Protein Albumin Triglycerides HDL Cholesterol Lipase Vitamin B12 TSH Urine WBC (Auto) Urine Chloride Urine Total Protein Vancomycin Trough Crossmatch 11/29/16 11/30/16 11/30/16 18:09 00:04 05:04 WBC RBC Hgb Hct MCV RDW Plt Count Lymph % (Auto) [place] % (Auto) [place] # Seg Neutrophils % Seg Neuts % (Manual) Lymphocytes % (Manual) Monocytes % (Manual) Basophils % (Manual) Nucleated RBC % Seg Neutrophils # Seg Neutrophils # Man Lymphocytes # (Manual) Monocytes # (Manual) Eosinophils # (Manual) Basophils # (Manual) PT 17.8 H INR 1.47 H APTT Heparin Anti-Xa Level POC ABG pH POC ABG pCO2 POC ABG pO2 Sodium Potassium Chloride Carbon Dioxide BUN Creatinine Glucose POC Glucose 214 H 110 H Calcium Phosphorus Magnesium AST Alkaline Phosphatase Troponin T C-Reactive Protein Total Protein Albumin Triglycerides HDL Cholesterol Lipase Vitamin B12 TSH Urine WBC (Auto) Urine Chloride Urine Total Protein Vancomycin Trough Crossmatch 11/30/16 11/30/16 11/30/16 05:46 11:59 17:51 WBC RBC Hgb Hct MCV RDW Plt Count Lymph % (Auto) [place] % (Auto) [place] # Seg Neutrophils % Seg Neuts % (Manual) Lymphocytes % (Manual) Monocytes % (Manual) Basophils % (Manual) Nucleated RBC % Seg Neutrophils # Seg Neutrophils # Man Lymphocytes # (Manual) Monocytes # (Manual) Eosinophils # (Manual) Basophils # (Manual) PT INR APTT Heparin Anti-Xa Level POC ABG pH POC ABG pCO2 POC ABG pO2 Sodium Potassium Chloride Carbon Dioxide BUN Creatinine Glucose POC Glucose 118 H 163 H 134 H Calcium Phosphorus Magnesium AST Alkaline Phosphatase Troponin T C-Reactive Protein Total Protein Albumin Triglycerides HDL Cholesterol Lipase Vitamin B12 TSH Urine WBC (Auto) Urine Chloride Urine Total Protein Vancomycin Trough Crossmatch 11/30/16 12/01/16 12/01/16 23:48 05:43 07:25 WBC RBC Hgb Hct MCV RDW Plt Count Lymph % (Auto) [place] % (Auto) [place] # Seg Neutrophils % Seg Neuts % (Manual) Lymphocytes % (Manual) Monocytes % (Manual) Basophils % (Manual) Nucleated RBC % Seg Neutrophils # Seg Neutrophils # Man Lymphocytes # (Manual) Monocytes # (Manual) Eosinophils # (Manual) Basophils # (Manual) PT 19.6 H INR 1.66 H APTT Heparin Anti-Xa Level POC ABG pH POC ABG pCO2 POC ABG pO2 Sodium Potassium Chloride Carbon Dioxide BUN Creatinine Glucose POC Glucose 127 H 161 H Calcium Phosphorus Magnesium AST Alkaline Phosphatase Troponin T C-Reactive Protein Total Protein Albumin Triglycerides HDL Cholesterol Lipase Vitamin B12 TSH Urine WBC (Auto) Urine Chloride Urine Total Protein Vancomycin Trough Crossmatch Allied health notes reviewed: RT
--- NOTE | 2016-12-01 12:58 | Progress Note ---
Assessment and Plan Assessment and plan: Patient is a 66-year-old woman who presented with lethargy and altered mental status with possible anoxic injury unknown duration of how long she was down for she deteriorated and was intubated in emergency room, she was managed for DKA and she also developed sepsis due to UTI and right lower extremity ischemia- > Cold right foot which I discovered on Rounds on 10/17/16 and I asked the nurse for the bedside doppler which showed no pulse, My exam on the morning of morning has changed, she had a pulse right foot. Arterial duplex revealed a proximal right superficial femoral artery occlusion. I consulted and discussed with Vascular surgery, Dr. Eller ==>Acute ischemic right foot. 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 Remained very difficult to wean from the vent. Although eventually was tolerating pressure support. She subsequently went into cardiac arrest was resuscitated but this time was not able to recover back to following commands as previous before second cardiac arrest. Heparin was discontinued due to CPR. Vascular did not feel at this time that for reactivation of the right lower extremity was needed. Imaging studies were consented for anoxic encephalopathy and cortical irritability although no diagnosis of brain was noted. Dr. Mcclure discussed with family extensively and has informed them about real possibility of not having any meaningful neurological recovery. They agreed with transfer to a skilled facility with vent Ability. Case management is working and is meantime we'll continue current therapy and management. -S/P cardiopulomary arrest x 2 -A/C respiratory failure with hypercapnea -Seizure-Per family prior hx -DM, s/p DKA -Hyponatremia -Acute limb ischemia of right lower ext due to SFA thrombosis- s/p right BKA -LUCY/CKD 3 likely vasomotor nephropathy-resolved -Sepsis, Strept Group B tracheobronchitis, poa- Multifactorial -Anemia of chronic disease -Hematuria -Metabolic acidosis -Severe Hypokalemia-RESOLVED -Pancreatitis, acute, poa -Vaginal candidiasis -Hypernatremia -MSOF, poa Plan: * s/p EEG - findings consistent with anoxic encephalopathy and cortical irritability * Neurology notes intact brain stem * PSV as tolerated * Family updated about the very real possibility of not having any meaningful neurological recovery. all questions answered. Family meeting with daughter, and grandchild with greatgrand child in attendance. Case mangement and social work coordinator and bedside nurse were also present. * Poor prognosis. * Plan for transfer to [facility] acute care facility pending * MRI brain with no gross abnormality * adjust insulin therapy * Neurologic input noted. EEG abnormal. * Heparin had to be held due to the risk associated considering recent CPR with chest compressions. * vascular following up on right BKA remains poor prognosis and likely will need a conversion to AKA. * Continue subcutaneous insulin and electrolyte replacement * Continue Cardizem and beta juan antonio * Monitor electrolytes and hemoglobin. * continue dilantin * DVT and GI prophylaxis New issue: ACUTE DVT IN THE RT.AXILLARY VEIN EXTENDING TO THE RT.BRACHIAL VEIN.RN INFORMED. Treat with therapeutic anticoagulation new issue: lungs more congested. Disposition: Placement? snf with vent capabilities vs ltach Poor prognosis History Interval history: Patient seen and examined. Follow up on respiratory failure, still intubated. Overnight uneventful. Imaging, old records, testing, labs, nursing notes reviewed. Hospitalist Physical - Physical exam Narrative exam: GEN: Intubated CVS: RRR, NORMAL S1S2 LUNGS/CHEST: Tachypnea NORMAL CHEST EXPANSION B, GOOD AIR ENTRY B ABD: SOFT +peg, GBS, NO REBOUND OR GUARDING NEURO: CN 2-12 GROSSLY INTACT, doesn't follow commands, eyes wondering PSY: Anxious New issue: right bka, tracheostomy and peg present - Constitutional Vitals: Temp Pulse Resp BP Pulse Ox 99.3 F 83 28 H 151/60 100 12/01/16 08:00 12/01/16 12:00 12/01/16 12:00 12/01/16 12:00 12/01/16 12:00 General appearance: Present: no acute distress Results - Labs CBC & Chem 7: 11/28/16 05:46 11/28/16 05:46 Labs: Laboratory Last Values WBC 10.5 K/mm3 (4.5-11.0) 11/28/16 05:46 RBC 2.88 M/mm3 (3.65-5.03) L 11/28/16 05:46 Hgb 8.9 gm/dl (10.1-14.3) L 11/28/16 05:46 Hct 27.7 % (30.3-42.9) L 11/28/16 05:46 MCV 96 fl (79-97) 11/28/16 05:46 MCH 31 pg (28-32) 11/28/16 05:46 MCHC 32 % (30-34) 11/28/16 05:46 RDW 17.2 % (13.2-15.2) H 11/28/16 05:46 Plt Count 391 K/mm3 (140-440) 11/28/16 05:46 Lymph % (Auto) 14.8 % (13.4-35.0) 11/22/16 11:49 [place] % (Auto) 6.7 % (0.0-7.3) 11/22/16 11:49 Eos % (Auto) 1.1 % (0.0-4.3) 11/22/16 11:49 Baso % (Auto) 0.6 % (0.0-1.8) 11/22/16 11:49 Lymph # 1.6 K/mm3 (1.2-5.4) 11/22/16 11:49 [place] # 0.7 K/mm3 (0.0-0.8) 11/22/16 11:49 Eos # 0.1 K/mm3 (0.0-0.4) 11/22/16 11:49 Baso # 0.1 K/mm3 (0.0-0.1) 11/22/16 11:49 Add Manual Diff Complete 11/18/16 13:00 Total Counted 100 11/18/16 13:00 Seg Neutrophils % 76.8 % (40.0-70.0) H 11/22/16 11:49 Seg Neuts % (Manual) 90.0 % (40.0-70.0) H 11/18/16 13:00 Band Neutrophils % 0 % 11/18/16 13:00 Lymphocytes % (Manual) 8.0 % (13.4-35.0) L 11/18/16 13:00 Reactive Lymphs % (Man) 0 % 11/18/16 13:00 Monocytes % (Manual) 2.0 % (0.0-7.3) 11/18/16 13:00 Eosinophils % (Manual) 0 % (0.0-4.3) 11/18/16 13:00 Basophils % (Manual) 0 % (0.0-1.8) 11/18/16 13:00 Metamyelocytes % 0 % 11/18/16 13:00 Myelocytes % 0 % 11/18/16 13:00 Promyelocytes % 0 % 11/18/16 13:00 Blast Cells % 0 % 11/18/16 13:00 Nucleated RBC % Not Reportable 11/18/16 13:00 Seg Neutrophils # 8.5 K/mm3 (1.8-7.7) H 11/22/16 11:49 Seg Neutrophils # Man 11.3 K/mm3 (1.8-7.7) H 11/18/16 13:00 Band Neutrophils # 0.0 K/mm3 11/18/16 13:00 Lymphocytes # (Manual) 1.0 K/mm3 (1.2-5.4) L 11/18/16 13:00 Abs React Lymphs (Man) 0.0 K/mm3 11/18/16 13:00 Monocytes # (Manual) 0.3 K/mm3 (0.0-0.8) 11/18/16 13:00 Eosinophils # (Manual) 0.0 K/mm3 (0.0-0.4) 11/18/16 13:00 Basophils # (Manual) 0.0 K/mm3 (0.0-0.1) 11/18/16 13:00 Metamyelocytes # 0.0 K/mm3 11/18/16 13:00 Myelocytes # 0.0 K/mm3 11/18/16 13:00 Promyelocytes # 0.0 K/mm3 11/18/16 13:00 Blast Cells # 0.0 K/mm3 11/18/16 13:00 Pathologist Review 10/29/16 09:30 WBC Morphology Not Reportable 11/18/16 13:00 Hypersegmented Neuts Not Reportable 11/18/16 13:00 Hyposegmented Neuts Not Reportable 11/18/16 13:00 Hypogranular Neuts Not Reportable 11/18/16 13:00 Hypersegmented Polys TNR 10/17/16 07:08 Smudge Cells Not Reportable 11/18/16 13:00 Toxic Granulation Not Reportable 11/18/16 13:00 Toxic Vacuolation Not Reportable 11/18/16 13:00 Dohle Bodies Not Reportable 11/18/16 13:00 Pelger-Huet Anomaly Not Reportable 11/18/16 13:00 Alka Rods Not Reportable 11/18/16 13:00 Platelet Estimate Consistent w auto 11/18/16 13:00 Clumped Platelets Not Reportable 11/18/16 13:00 Plt Clumps, EDTA Not Reportable 11/18/16 13:00 Large Platelets Not Reportable 11/18/16 13:00 Giant Platelets Not Reportable 11/18/16 13:00 Platelet Satelliting Not Reportable 11/18/16 13:00 Plt Morphology Comment Not Reportable 11/18/16 13:00 RBC Morphology Not Reportable 11/18/16 13:00 Dimorphic RBCs Not Reportable 11/18/16 13:00 Polychromasia Not Reportable 11/18/16 13:00 Hypochromasia Not Reportable 11/18/16 13:00 Poikilocytosis Not Reportable 11/18/16 13:00 Basophilic Stippling TNR 10/17/16 07:08 Anisocytosis 1+ 11/18/16 13:00 Microcytosis Not Reportable 11/18/16 13:00 Macrocytosis Not Reportable 11/18/16 13:00 Spherocytes Not Reportable 11/18/16 13:00 Pappenheimer Bodies Not Reportable 11/18/16 13:00 Sickle Cells Not Reportable 11/18/16 13:00 Target Cells Not Reportable 11/18/16 13:00 Tear Drop Cells Not Reportable 11/18/16 13:00 Ovalocytes Not Reportable 11/18/16 13:00 Stomatocytes Few 11/03/16 00:05 Helmet Cells Not Reportable 11/18/16 13:00 [place] Bodies Not Reportable 11/18/16 13:00 [place] Rings Not Reportable 11/18/16 13:00 [place] Cells Not Reportable 11/18/16 13:00 Bite Cells Not Reportable 11/18/16 13:00 Crenated Cell Not Reportable 11/18/16 13:00 Elliptocytes Not Reportable 11/18/16 13:00 Acanthocytes (Spur) Not Reportable 11/18/16 13:00 Rouleaux Not Reportable 11/18/16 13:00 Hemoglobin C Crystals Not Reportable 11/18/16 13:00 Schistocytes Not Reportable 11/18/16 13:00 Malaria parasites Not Reportable 11/18/16 13:00 David Bodies Not Reportable 11/18/16 13:00 Hem Pathologist Commnt No 11/18/16 13:00 PT 19.6 Sec. (12.2-14.9) H 12/01/16 07:25 INR 1.66 (0.87-1.13) H 12/01/16 07:25 APTT 131.1 Sec. (24.2-36.6) H* 11/18/16 05:45 Heparin Anti-Xa Level 0.51 U.I./ml (0.3-0.7) 11/18/16 11:16 POC ABG pH 7.331 (7.35-7.45) L 11/27/16 17:45 POC ABG pCO2 38.1 (35-45) 11/27/16 17:45 POC ABG pO2 46 (80-105) L 11/27/16 17:45 POC ABG HCO3 20.1 11/27/16 17:45 POC ABG Total CO2 21 11/27/16 17:45 POC ABG O2 Sat 79 11/27/16 17:45 POC ABG Base Excess -6 11/27/16 17:45 VBG pH 7.020 (7.320-7.420) L* 10/13/16 04:22 FiO2 40 % 11/27/16 17:45 Sodium 141 mmol/L (137-145) D 11/28/16 05:46 Potassium 4.2 mmol/L (3.6-5.0) 11/28/16 05:46 Chloride 105.4 mmol/L (98-107) 11/28/16 05:46 Carbon Dioxide 21 mmol/L (22-30) L 11/28/16 05:46 Anion Gap 19 mmol/L 11/28/16 05:46 BUN 27 mg/dL (7-17) H 11/28/16 05:46 Creatinine 0.8 mg/dL (0.7-1.2) 11/28/16 05:46 Estimated GFR > 60 ml/min 11/28/16 05:46 BUN/Creatinine Ratio 33.75 % 11/28/16 05:46 Glucose 237 mg/dL (65-100) H 11/28/16 05:46 POC Glucose 161 (70-105) H 12/01/16 05:43 Osmolality 332 Mosm/kg 10/14/16 07:03 Lactic Acid 1.8 mmol/L (0.7-2.0) 10/14/16 07:03 Calcium 8.1 mg/dL (8.4-10.2) L 11/28/16 05:46 Phosphorus 2.7 mg/dL (2.5-4.5) D 10/21/16 Unknown Magnesium 2.0 mg/dL (1.7-2.3) 11/20/16 05:00 Total Bilirubin 0.2 mg/dL (0.1-1.2) 11/19/16 04:30 AST 9 units/L (5-40) 11/19/16 04:30 ALT 7 units/L (7-56) 11/19/16 04:30 Alkaline Phosphatase 82 units/L (35-129) 11/19/16 04:30 Ammonia 35.0 umol/L (25-60) 10/13/16 05:40 Total Creatine Kinase 107 units/L (30-135) 10/13/16 04:22 CK-MB (CK-2) 3.1 ng/mL (0.0-4.0) 10/13/16 04:22 CK-MB (CK-2) Rel Index 2.8 (0-4) 10/13/16 04:22 Troponin T 0.090 ng/mL (0.00-0.029) H 11/28/16 05:46 C-Reactive Protein 10.50 mg/dL (0.00-1.30) H 10/13/16 16:14 Total Protein 5.5 g/dL (6.3-8.2) L 11/19/16 04:30 Albumin 2.1 g/dL (3.9-5) L 11/19/16 04:30 Albumin/Globulin Ratio 0.6 % 11/19/16 04:30 Triglycerides 154 mg/dL (2-149) H 11/28/16 05:46 Cholesterol 128 mg/dL (50-199) 11/28/16 05:46 LDL Cholesterol Direct 60 mg/dL (50-130) 11/28/16 05:46 HDL Cholesterol 38 mg/dL (40-59) L 11/28/16 05:46 Cholesterol/HDL Ratio 3.36 % 11/28/16 05:46 Amylase 30 units/L (27-131) 11/10/16 04:30 Lipase 41 units/L (13-60) 11/10/16 04:30 Vitamin B12 976.8 pg/mL (211-911) H 10/22/16 10:25 TSH 0.162 mlU/mL (0.270-4.200) L 10/22/16 14:50 Free T4 0.77 ng/dL (0.76-1.46) 10/22/16 14:50 Urine Color Yellow (Yellow) 11/14/16 19:39 Urine Turbidity Cloudy (Clear) 11/14/16 19:39 Urine pH 6.0 (5.0-7.0) 11/14/16 19:39 Ur Specific [place] 1.010 (1.003-1.030) 11/14/16 19:39 Urine Protein 30 mg/dl mg/dL (Negative) 11/14/16 19:39 Urine Glucose (UA) 50 mg/dL (Negative) 11/14/16 19:39 Urine Ketones 20 mg/dL (Negative) 11/14/16 19:39 Urine Blood Lg (Negative) 11/14/16 19:39 Urine Nitrite Neg (Negative) 11/14/16 19:39 Urine Bilirubin Neg (Negative) 11/14/16 19:39 Urine Urobilinogen < 2.0 mg/dL (<2.0) 11/14/16 19:39 Ur Leukocyte Esterase Sm (Negative) 11/14/16 19:39 Urine WBC (Auto) 3.0 /HPF (0.0-6.0) 11/14/16 19:39 Urine RBC (Auto) > 182.0 /HPF (0.0-6.0) 11/14/16 19:39 U Epithel Cells (Auto) 1.0 /HPF (0-13.0) 10/15/16 11:05 Urine Bacteria (Auto) 1+ /HPF (Negative) 11/14/16 19:39 Urine Mucus Few /HPF 11/14/16 19:39 Urine Yeast (Budding) 2+ /HPF 10/15/16 11:05 Urine Osmolality 487 Mosm/kg 10/13/16 Unknown Urine Creatinine < 4.2 mg/dL (0.1-20.0) 10/13/16 Unknown Protein/Creatinin Ratio 0.00 10/13/16 Unknown Urine Sodium 10 mEq/L 10/13/16 Unknown Urine Potassium 1.00 mEq/L 10/13/16 Unknown Urine Chloride 10.0 mEq/L (110-250) L 10/13/16 Unknown Urine Total Protein < 4 mg/dL (5-11.8) L 10/13/16 Unknown Vancomycin Trough 30.4 ug/mL (5.0-20.0) H 11/21/16 09:50 Random Vancomycin 20.8 ug/mL (0-40.0) 11/23/16 04:00 Ketones 107.3 mg/dL (0.2-2.8) H 10/13/16 04:22 Blood Type A POSITIVE 11/03/16 18:01 Antibody Screen Negative 11/03/16 18:01 Crossmatch See Detail 11/03/16 18:01
[2016-12-01] MEDS: COUMADIN PO SCH (16:37)
[2016-12-01] MEDS: TYLENOL PO PRN (21:49)
[2016-12-02] MEDS: DILANTIN IV SCH ×3 (05:35→22:10)
[2016-12-02 06:00] LABS: INR 1.74 (0.87-1.13)
[2016-12-02] MEDS: LOPRESSOR PO SCH ×3 (07:34→22:10)
[2016-12-02] MEDS: ZESTRIL PO SCH (09:36)
[2016-12-02] MEDS: PEPCID PO SCH ×2 (09:36→22:10)
[2016-12-02] MEDS: PLAVIX PO SCH (09:36)
[2016-12-02] MEDS: LOVENOX SUB-Q SCH ×2 (09:37→22:10)
[2016-12-02] MEDS: LEVEMIR SUB-Q SCH (09:37)
--- NOTE | 2016-12-02 10:52 | Progress Note ---
Assessment and Plan Assessment and plan: Patient is a 66-year-old woman who presented with lethargy and altered mental status with possible anoxic injury unknown duration of how long she was down for she deteriorated and was intubated in emergency room, she was managed for DKA and she also developed sepsis due to UTI and right lower extremity ischemia- > Cold right foot which I discovered on Rounds on 10/17/16 and I asked the nurse for the bedside doppler which showed no pulse, My exam on the morning of morning has changed, she had a pulse right foot. Arterial duplex revealed a proximal right superficial femoral artery occlusion. I consulted and discussed with Vascular surgery, Dr. Eller ==>Acute ischemic right foot. 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 Remained very difficult to wean from the vent. Although eventually was tolerating pressure support. She subsequently went into cardiac arrest was resuscitated but this time was not able to recover back to following commands as previous before second cardiac arrest. Heparin was discontinued due to CPR. Vascular did not feel at this time that for reactivation of the right lower extremity was needed. Imaging studies were consented for anoxic encephalopathy and cortical irritability although no diagnosis of brain was noted. Dr. Mcclure discussed with family extensively and has informed them about real possibility of not having any meaningful neurological recovery. They agreed with transfer to a skilled facility with vent Ability. Case management is working and is meantime we'll continue current therapy and management. -S/P cardiopulomary arrest x 2 -A/C respiratory failure with hypercapnea -Seizure-Per family prior hx -DM, s/p DKA -Hyponatremia -Acute limb ischemia of right lower ext due to SFA thrombosis- s/p right BKA -LUCY/CKD 3 likely vasomotor nephropathy-resolved -Sepsis, Strept Group B tracheobronchitis, poa- Multifactorial -Anemia of chronic disease -Hematuria -Metabolic acidosis -Severe Hypokalemia-RESOLVED -Pancreatitis, acute, poa -Vaginal candidiasis -Hypernatremia -MSOF, poa Plan: * s/p EEG - findings consistent with anoxic encephalopathy and cortical irritability * Neurology notes intact brain stem * PSV as tolerated * Family updated about the very real possibility of not having any meaningful neurological recovery. all questions answered. Family meeting with daughter, and grandchild with greatgrand child in attendance. Case mangement and social worker palliative care and bedside nurse were also present. * Poor prognosis. * Plan for transfer to custodial acute care facility pending * MRI brain with no gross abnormality * adjust insulin therapy * Neurologic input noted. EEG abnormal. * Heparin had to be held due to the risk associated considering recent CPR with chest compressions. * vascular following up on right BKA remains poor prognosis and likely will need a conversion to AKA. * Continue subcutaneous insulin and electrolyte replacement * Continue Cardizem and beta juan antonio * Monitor electrolytes and hemoglobin. * continue dilantin * DVT and GI prophylaxis New issue: ACUTE DVT IN THE RT.AXILLARY VEIN EXTENDING TO THE RT.BRACHIAL VEIN.RN INFORMED. Treat with therapeutic anticoagulation new issue: lungs more congested. Disposition: Placement? snf with vent capabilities vs ltach Poor prognosis History Interval history: Patient seen and examined. Follow up on respiratory failure, still intubated. Overnight uneventful. Imaging, old records, testing, labs, nursing notes reviewed. at bedside Hospitalist Physical - Physical exam Narrative exam: GEN: Intubated CVS: RRR, NORMAL S1S2 LUNGS/CHEST: Tachypnea NORMAL CHEST EXPANSION B, GOOD AIR ENTRY B ABD: SOFT +peg, GBS, NO REBOUND OR GUARDING NEURO: CN 2-12 GROSSLY INTACT, doesn't follow commands, eyes wondering PSY: Anxious New issue: right bka, tracheostomy and peg present - Constitutional Vitals: Temp Pulse Resp BP Pulse Ox 98.7 F 100 H 28 H 154/71 96 12/02/16 08:00 12/02/16 10:35 12/02/16 10:35 12/02/16 09:36 12/02/16 10:50 General appearance: Present: no acute distress Results - Labs CBC & Chem 7: 11/28/16 05:46 11/28/16 05:46 Labs: Laboratory Last Values WBC 10.5 K/mm3 (4.5-11.0) 11/28/16 05:46 RBC 2.88 M/mm3 (3.65-5.03) L 11/28/16 05:46 Hgb 8.9 gm/dl (10.1-14.3) L 11/28/16 05:46 Hct 27.7 % (30.3-42.9) L 11/28/16 05:46 MCV 96 fl (79-97) 11/28/16 05:46 MCH 31 pg (28-32) 11/28/16 05:46 MCHC 32 % (30-34) 11/28/16 05:46 RDW 17.2 % (13.2-15.2) H 11/28/16 05:46 Plt Count 391 K/mm3 (140-440) 11/28/16 05:46 Lymph % (Auto) 14.8 % (13.4-35.0) 11/22/16 11:49 Falls % (Auto) 6.7 % (0.0-7.3) 11/22/16 11:49 Eos % (Auto) 1.1 % (0.0-4.3) 11/22/16 11:49 Baso % (Auto) 0.6 % (0.0-1.8) 11/22/16 11:49 Lymph # 1.6 K/mm3 (1.2-5.4) 11/22/16 11:49 Falls # 0.7 K/mm3 (0.0-0.8) 11/22/16 11:49 Eos # 0.1 K/mm3 (0.0-0.4) 11/22/16 11:49 Baso # 0.1 K/mm3 (0.0-0.1) 11/22/16 11:49 Add Manual Diff Complete 11/18/16 13:00 Total Counted 100 11/18/16 13:00 Seg Neutrophils % 76.8 % (40.0-70.0) H 11/22/16 11:49 Seg Neuts % (Manual) 90.0 % (40.0-70.0) H 11/18/16 13:00 Band Neutrophils % 0 % 11/18/16 13:00 Lymphocytes % (Manual) 8.0 % (13.4-35.0) L 11/18/16 13:00 Reactive Lymphs % (Man) 0 % 11/18/16 13:00 Monocytes % (Manual) 2.0 % (0.0-7.3) 11/18/16 13:00 Eosinophils % (Manual) 0 % (0.0-4.3) 11/18/16 13:00 Basophils % (Manual) 0 % (0.0-1.8) 11/18/16 13:00 Metamyelocytes % 0 % 11/18/16 13:00 Myelocytes % 0 % 11/18/16 13:00 Promyelocytes % 0 % 11/18/16 13:00 Blast Cells % 0 % 11/18/16 13:00 Nucleated RBC % Not Reportable 11/18/16 13:00 Seg Neutrophils # 8.5 K/mm3 (1.8-7.7) H 11/22/16 11:49 Seg Neutrophils # Man 11.3 K/mm3 (1.8-7.7) H 11/18/16 13:00 Band Neutrophils # 0.0 K/mm3 11/18/16 13:00 Lymphocytes # (Manual) 1.0 K/mm3 (1.2-5.4) L 11/18/16 13:00 Abs React Lymphs (Man) 0.0 K/mm3 11/18/16 13:00 Monocytes # (Manual) 0.3 K/mm3 (0.0-0.8) 11/18/16 13:00 Eosinophils # (Manual) 0.0 K/mm3 (0.0-0.4) 11/18/16 13:00 Basophils # (Manual) 0.0 K/mm3 (0.0-0.1) 11/18/16 13:00 Metamyelocytes # 0.0 K/mm3 11/18/16 13:00 Myelocytes # 0.0 K/mm3 11/18/16 13:00 Promyelocytes # 0.0 K/mm3 11/18/16 13:00 Blast Cells # 0.0 K/mm3 11/18/16 13:00 Pathologist Review 10/29/16 09:30 WBC Morphology Not Reportable 11/18/16 13:00 Hypersegmented Neuts Not Reportable 11/18/16 13:00 Hyposegmented Neuts Not Reportable 11/18/16 13:00 Hypogranular Neuts Not Reportable 11/18/16 13:00 Hypersegmented Polys TNR 10/17/16 07:08 Smudge Cells Not Reportable 11/18/16 13:00 Toxic Granulation Not Reportable 11/18/16 13:00 Toxic Vacuolation Not Reportable 11/18/16 13:00 Dohle Bodies Not Reportable 11/18/16 13:00 Pelger-Huet Anomaly Not Reportable 11/18/16 13:00 Alka Rods Not Reportable 11/18/16 13:00 Platelet Estimate Consistent w auto 11/18/16 13:00 Clumped Platelets Not Reportable 11/18/16 13:00 Plt Clumps, EDTA Not Reportable 11/18/16 13:00 Large Platelets Not Reportable 11/18/16 13:00 Giant Platelets Not Reportable 11/18/16 13:00 Platelet Satelliting Not Reportable 11/18/16 13:00 Plt Morphology Comment Not Reportable 11/18/16 13:00 RBC Morphology Not Reportable 11/18/16 13:00 Dimorphic RBCs Not Reportable 11/18/16 13:00 Polychromasia Not Reportable 11/18/16 13:00 Hypochromasia Not Reportable 11/18/16 13:00 Poikilocytosis Not Reportable 11/18/16 13:00 Basophilic Stippling TNR 10/17/16 07:08 Anisocytosis 1+ 11/18/16 13:00 Microcytosis Not Reportable 11/18/16 13:00 Macrocytosis Not Reportable 11/18/16 13:00 Spherocytes Not Reportable 11/18/16 13:00 Pappenheimer Bodies Not Reportable 11/18/16 13:00 Sickle Cells Not Reportable 11/18/16 13:00 Target Cells Not Reportable 11/18/16 13:00 Tear Drop Cells Not Reportable 11/18/16 13:00 Ovalocytes Not Reportable 11/18/16 13:00 Stomatocytes Few 11/03/16 00:05 Helmet Cells Not Reportable 11/18/16 13:00 [place] Bodies Not Reportable 11/18/16 13:00 [place] Rings Not Reportable 11/18/16 13:00 [place] Cells Not Reportable 11/18/16 13:00 Bite Cells Not Reportable 11/18/16 13:00 Crenated Cell Not Reportable 11/18/16 13:00 Elliptocytes Not Reportable 11/18/16 13:00 Acanthocytes (Spur) Not Reportable 11/18/16 13:00 Rouleaux Not Reportable 11/18/16 13:00 Hemoglobin C Crystals Not Reportable 11/18/16 13:00 Schistocytes Not Reportable 11/18/16 13:00 Malaria parasites Not Reportable 11/18/16 13:00 David Bodies Not Reportable 11/18/16 13:00 Hem Pathologist Commnt No 11/18/16 13:00 PT 20.3 Sec. (12.2-14.9) H 12/02/16 05:07 INR 1.74 (0.87-1.13) H 12/02/16 05:07 APTT 131.1 Sec. (24.2-36.6) H* 11/18/16 05:45 Heparin Anti-Xa Level 0.51 U.I./ml (0.3-0.7) 11/18/16 11:16 POC ABG pH 7.331 (7.35-7.45) L 11/27/16 17:45 POC ABG pCO2 38.1 (35-45) 11/27/16 17:45 POC ABG pO2 46 (80-105) L 11/27/16 17:45 POC ABG HCO3 20.1 11/27/16 17:45 POC ABG Total CO2 21 11/27/16 17:45 POC ABG O2 Sat 79 11/27/16 17:45 POC ABG Base Excess -6 11/27/16 17:45 VBG pH 7.020 (7.320-7.420) L* 10/13/16 04:22 FiO2 40 % 11/27/16 17:45 Sodium 141 mmol/L (137-145) D 11/28/16 05:46 Potassium 4.2 mmol/L (3.6-5.0) 11/28/16 05:46 Chloride 105.4 mmol/L (98-107) 11/28/16 05:46 Carbon Dioxide 21 mmol/L (22-30) L 11/28/16 05:46 Anion Gap 19 mmol/L 11/28/16 05:46 BUN 27 mg/dL (7-17) H 11/28/16 05:46 Creatinine 0.8 mg/dL (0.7-1.2) 11/28/16 05:46 Estimated GFR > 60 ml/min 11/28/16 05:46 BUN/Creatinine Ratio 33.75 % 11/28/16 05:46 Glucose 237 mg/dL (65-100) H 11/28/16 05:46 POC Glucose 172 (70-105) H 12/02/16 05:14 Osmolality 332 Mosm/kg 10/14/16 07:03 Lactic Acid 1.8 mmol/L (0.7-2.0) 10/14/16 07:03 Calcium 8.1 mg/dL (8.4-10.2) L 11/28/16 05:46 Phosphorus 2.7 mg/dL (2.5-4.5) D 10/21/16 Unknown Magnesium 2.0 mg/dL (1.7-2.3) 11/20/16 05:00 Total Bilirubin 0.2 mg/dL (0.1-1.2) 11/19/16 04:30 AST 9 units/L (5-40) 11/19/16 04:30 ALT 7 units/L (7-56) 11/19/16 04:30 Alkaline Phosphatase 82 units/L (35-129) 11/19/16 04:30 Ammonia 35.0 umol/L (25-60) 10/13/16 05:40 Total Creatine Kinase 107 units/L (30-135) 10/13/16 04:22 CK-MB (CK-2) 3.1 ng/mL (0.0-4.0) 10/13/16 04:22 CK-MB (CK-2) Rel Index 2.8 (0-4) 10/13/16 04:22 Troponin T 0.090 ng/mL (0.00-0.029) H 11/28/16 05:46 C-Reactive Protein 10.50 mg/dL (0.00-1.30) H 10/13/16 16:14 Total Protein 5.5 g/dL (6.3-8.2) L 11/19/16 04:30 Albumin 2.1 g/dL (3.9-5) L 11/19/16 04:30 Albumin/Globulin Ratio 0.6 % 11/19/16 04:30 Triglycerides 154 mg/dL (2-149) H 11/28/16 05:46 Cholesterol 128 mg/dL (50-199) 11/28/16 05:46 LDL Cholesterol Direct 60 mg/dL (50-130) 11/28/16 05:46 HDL Cholesterol 38 mg/dL (40-59) L 11/28/16 05:46 Cholesterol/HDL Ratio 3.36 % 11/28/16 05:46 Amylase 30 units/L (27-131) 11/10/16 04:30 Lipase 41 units/L (13-60) 11/10/16 04:30 Vitamin B12 976.8 pg/mL (211-911) H 10/22/16 10:25 TSH 0.162 mlU/mL (0.270-4.200) L 10/22/16 14:50 Free T4 0.77 ng/dL (0.76-1.46) 10/22/16 14:50 Urine Color Yellow (Yellow) 11/14/16 19:39 Urine Turbidity Cloudy (Clear) 11/14/16 19:39 Urine pH 6.0 (5.0-7.0) 11/14/16 19:39 Ur Specific [place] 1.010 (1.003-1.030) 11/14/16 19:39 Urine Protein 30 mg/dl mg/dL (Negative) 11/14/16 19:39 Urine Glucose (UA) 50 mg/dL (Negative) 11/14/16 19:39 Urine Ketones 20 mg/dL (Negative) 11/14/16 19:39 Urine Blood Lg (Negative) 11/14/16 19:39 Urine Nitrite Neg (Negative) 11/14/16 19:39 Urine Bilirubin Neg (Negative) 11/14/16 19:39 Urine Urobilinogen < 2.0 mg/dL (<2.0) 11/14/16 19:39 Ur Leukocyte Esterase Sm (Negative) 11/14/16 19:39 Urine WBC (Auto) 3.0 /HPF (0.0-6.0) 11/14/16 19:39 Urine RBC (Auto) > 182.0 /HPF (0.0-6.0) 11/14/16 19:39 U Epithel Cells (Auto) 1.0 /HPF (0-13.0) 10/15/16 11:05 Urine Bacteria (Auto) 1+ /HPF (Negative) 11/14/16 19:39 Urine Mucus Few /HPF 11/14/16 19:39 Urine Yeast (Budding) 2+ /HPF 10/15/16 11:05 Urine Osmolality 487 Mosm/kg 10/13/16 Unknown Urine Creatinine < 4.2 mg/dL (0.1-20.0) 10/13/16 Unknown Protein/Creatinin Ratio 0.00 10/13/16 Unknown Urine Sodium 10 mEq/L 10/13/16 Unknown Urine Potassium 1.00 mEq/L 10/13/16 Unknown Urine Chloride 10.0 mEq/L (110-250) L 10/13/16 Unknown Urine Total Protein < 4 mg/dL (5-11.8) L 10/13/16 Unknown Vancomycin Trough 30.4 ug/mL (5.0-20.0) H 11/21/16 09:50 Random Vancomycin 20.8 ug/mL (0-40.0) 11/23/16 04:00 Ketones 107.3 mg/dL (0.2-2.8) H 10/13/16 04:22 Blood Type A POSITIVE 11/03/16 18:01 Antibody Screen Negative 11/03/16 18:01 Crossmatch See Detail 11/03/16 18:01
[2016-12-02] MEDS: NORMODYNE IV PRN (11:36)
[2016-12-02 14:13] LABS: Hematocrit 25.1 % (30.3-42.9); Hemoglobin 7.9 gm/dl (10.1-14.3)
--- NOTE | 2016-12-02 15:40 | Progress Note ---
Assessment and Plan - Patient Problems (1) Acute respiratory failure with hypercapnia Current Visit: Yes Status: Acute Plan to address problem: Continue with mechanical ventilatory support. Weaning/Spontaneous breathing trials as tolerated VAP bundle Critical bundles addressed Agitation management HOB >40, aspiration precautions VTE/Stress ulcer prophylaxis Glycemic control (2) DKA (diabetic ketoacidoses) Current Visit: Yes Status: Acute Qualifiers: Diabetes mellitus type: D Diabetes mellitus complication detail: D Plan to address problem: Continue with accucheck and glycemic control. Glycemic control is acceptable Monitor closely. (3) Altered mental status Current Visit: Yes Status: Acute Qualifiers: Altered mental status type: A Coma depth: C Coma timing: C Plan to address problem: Toxic, metabolic, anoxia. Continue to monitor (4) Acidosis Current Visit: Yes Status: Acute Plan to address problem: Improving (5) Acute on chronic renal failure Current Visit: Yes Status: Acute Plan to address problem: Monitor renal function and electrolytes. Avoid nephrotoxic agents, adjust all medications for creatinine clearance Renal function has improved (6) Sepsis Current Visit: Yes Status: Acute Qualifiers: Sepsis type: S Plan to address problem: Resolving (7) DVT (deep venous thrombosis) Current Visit: Yes Status: Acute Qualifiers: DVT location: upper extremity Affected thrombotic vein of extremity: A Laterality: L Chronicity: C Plan to address problem: On coumadin with lovenox bridge. Monitor for bleeding. Will need anticoagulation for 3 months (8) Discharge planning issues Current Visit: Yes Status: Acute Plan to address problem: Discussed discharge care plan with the case management in the critical care unit. updated at the bedside. 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 Subjective Date of service: 12/02/16 Principal diagnosis: respiratory failure on mechanical ventilatory support, DKA Interval history: Patient seen and examined. Vitals, labs, medications, chart reviewed On-going encephalopathy and agitation s/p tracheostomy at the bedside. No acute overnight events reported, reviewed 24 hour events and discussed with the RN and RT. Tolerating SBT/PSV but requires PS 20 to generate tidal volumes of 300 Objective Vital Signs - 12hr 12/02/16 12/02/16 12/02/16 04:00 04:30 05:00 Temperature 99.8 F H Pulse Rate 90 90 97 H Respiratory 28 H 22 33 H Rate Blood Pressure 157/67 162/66 173/77 O2 Sat by Pulse 100 100 99 Oximetry O2 Sat by Pulse Oximetry [ Assessment] 12/02/16 12/02/16 12/02/16 05:30 06:00 06:30 Temperature Pulse Rate 93 H 79 75 Respiratory 21 19 18 Rate Blood Pressure 166/70 154/63 149/58 O2 Sat by Pulse 99 100 100 Oximetry O2 Sat by Pulse Oximetry [ Assessment] 12/02/16 12/02/16 12/02/16 07:00 07:20 07:30 Temperature Pulse Rate 79 95 H 82 Respiratory 37 H 30 H 37 H Rate Blood Pressure 157/68 146/77 O2 Sat by Pulse 100 98 100 Oximetry O2 Sat by Pulse Oximetry [ Assessment] 12/02/16 12/02/16 12/02/16 07:34 07:35 08:00 Temperature 98.7 F Pulse Rate 82 84 Respiratory 36 H Rate Blood Pressure 146/77 169/82 O2 Sat by Pulse 100 Oximetry O2 Sat by Pulse 97 Oximetry [ Assessment] 12/02/16 12/02/16 12/02/16 08:30 09:00 09:30 Temperature Pulse Rate 87 85 83 Respiratory 32 H 39 H 36 H Rate Blood Pressure 172/88 161/75 154/71 O2 Sat by Pulse 100 100 98 Oximetry O2 Sat by Pulse Oximetry [ Assessment] 12/02/16 12/02/16 12/02/16 09:36 10:00 10:30 Temperature Pulse Rate 83 83 90 Respiratory 33 H 37 H Rate Blood Pressure 154/71 158/71 186/92 O2 Sat by Pulse 99 100 Oximetry O2 Sat by Pulse Oximetry [ Assessment] 12/02/16 12/02/16 12/02/16 10:35 10:50 11:00 Temperature Pulse Rate 100 H 92 H Respiratory 28 H 37 H Rate Blood Pressure 181/91 O2 Sat by Pulse 96 99 Oximetry O2 Sat by Pulse 96 Oximetry [ Assessment] 12/02/16 12/02/16 12/02/16 11:30 11:36 12:00 Temperature 98.7 F Pulse Rate 91 H 88 87 Respiratory 31 H 35 H Rate Blood Pressure 176/91 176/91 156/66 O2 Sat by Pulse 100 100 Oximetry O2 Sat by Pulse Oximetry [ Assessment] 12/02/16 12/02/16 12/02/16 12:30 13:00 13:30 Temperature Pulse Rate 84 86 83 Respiratory 31 H 32 H 29 H Rate Blood Pressure 154/64 162/66 149/64 O2 Sat by Pulse 100 100 100 Oximetry O2 Sat by Pulse Oximetry [ Assessment] 12/02/16 12/02/16 12/02/16 13:48 14:00 15:05 Temperature Pulse Rate 83 80 90 Respiratory 33 H Rate Blood Pressure 149/64 151/69 O2 Sat by Pulse 100 97 Oximetry O2 Sat by Pulse Oximetry [ Assessment] Constitutional: no acute distress, lethargic, appears uncomfortable, other ( Patient likely has anoxic encephalopathy, s/p trach to vent) Eyes: non-icteric ENT: oropharynx moist Neck: supple, no lymphadenopathy, no JVD Effort: normal, mildly labored Ascultation: Bilateral: clear, diminished breath sounds, rales, other (coarse breath sounds bilaterally) Cardiovascular: regular rate and rhythm, other (S1,S2, No murmurs) Gastrointestinal: normoactive bowel sounds, soft, non-distended, other ( Gastrostomy tube) Integumentary: normal Extremities: no cyanosis, no edema, no ischemia or petechiae, other (s/p right BKA. right UExt Edema) Neurologic: unable to assess, other (encephalopathic) Psychiatric: other (encephalopathic) CBC and BMP: 12/02/16 13:59 11/28/16 05:46 ABG, PT/INR, D-dimer: ABG POC ABG pH 7.331 (7.35-7.45) L 11/27/16 17:45 POC ABG pCO2 38.1 (35-45) 11/27/16 17:45 POC ABG pO2 46 (80-105) L 11/27/16 17:45 POC ABG HCO3 20.1 11/27/16 17:45 POC ABG Total CO2 21 11/27/16 17:45 POC ABG O2 Sat 79 11/27/16 17:45 PT/INR, D-dimer PT 20.3 Sec. (12.2-14.9) H 12/02/16 05:07 INR 1.74 (0.87-1.13) H 12/02/16 05:07 Abnormal lab findings: Abnormal Labs 10/13/16 10/13/16 10/13/16 06:38 06:38 07:23 WBC RBC Hgb Hct MCV RDW Plt Count Lymph % (Auto) Wells % (Auto) Wells # Seg Neutrophils % Seg Neuts % (Manual) Lymphocytes % (Manual) Monocytes % (Manual) Basophils % (Manual) Nucleated RBC % Seg Neutrophils # Seg Neutrophils # Man Lymphocytes # (Manual) Monocytes # (Manual) Eosinophils # (Manual) Basophils # (Manual) PT INR APTT Heparin Anti-Xa Level POC ABG pH POC ABG pCO2 POC ABG pO2 Sodium Potassium 6.2 H* Chloride Carbon Dioxide 8 L* BUN 85 H Creatinine 2.8 H Glucose 602 H* POC Glucose 495 H Calcium 7.9 L Phosphorus 6.9 H D Magnesium 3.0 H AST Alkaline Phosphatase Troponin T C-Reactive Protein Total Protein Albumin Triglycerides HDL Cholesterol Lipase Vitamin B12 TSH Urine WBC (Auto) Urine Chloride Urine Total Protein Vancomycin Trough Crossmatch 10/13/16 10/13/16 10/13/16 08:49 08:55 10:12 WBC RBC Hgb Hct MCV RDW Plt Count Lymph % (Auto) Wells % (Auto) Wells # Seg Neutrophils % Seg Neuts % (Manual) Lymphocytes % (Manual) Monocytes % (Manual) Basophils % (Manual) Nucleated RBC % Seg Neutrophils # Seg Neutrophils # Man Lymphocytes # (Manual) Monocytes # (Manual) Eosinophils # (Manual) Basophils # (Manual) PT INR APTT Heparin Anti-Xa Level POC ABG pH POC ABG pCO2 POC ABG pO2 Sodium Potassium 5.6 H Chloride Carbon Dioxide 11 L BUN 77 H Creatinine 2.7 H Glucose 457 H POC Glucose > 500 H 424 H Calcium 8.0 L Phosphorus Magnesium AST Alkaline Phosphatase Troponin T C-Reactive Protein Total Protein Albumin Triglycerides HDL Cholesterol Lipase Vitamin B12 TSH Urine WBC (Auto) Urine Chloride Urine Total Protein Vancomycin Trough Crossmatch 10/13/16 10/13/16 10/13/16 10:44 11:22 12:20 WBC RBC Hgb Hct MCV RDW Plt Count Lymph % (Auto) Wells % (Auto) Wells # Seg Neutrophils % Seg Neuts % (Manual) Lymphocytes % (Manual) Monocytes % (Manual) Basophils % (Manual) Nucleated RBC % Seg Neutrophils # Seg Neutrophils # Man Lymphocytes # (Manual) Monocytes # (Manual) Eosinophils # (Manual) Basophils # (Manual) PT INR APTT Heparin Anti-Xa Level POC ABG pH POC ABG pCO2 POC ABG pO2 Sodium Potassium 5.4 H Chloride Carbon Dioxide 14 L BUN 72 H Creatinine 2.6 H Glucose 383 H POC Glucose 391 H 313 H Calcium 8.2 L Phosphorus Magnesium AST Alkaline Phosphatase Troponin T C-Reactive Protein Total Protein Albumin Triglycerides HDL Cholesterol Lipase Vitamin B12 TSH Urine WBC (Auto) Urine Chloride Urine Total Protein Vancomycin Trough Crossmatch 10/13/16 10/13/16 10/13/16 13:32 14:44 15:57 WBC RBC Hgb Hct MCV RDW Plt Count Lymph % (Auto) Wells % (Auto) Wells # Seg Neutrophils % Seg Neuts % (Manual) Lymphocytes % (Manual) Monocytes % (Manual) Basophils % (Manual) Nucleated RBC % Seg Neutrophils # Seg Neutrophils # Man Lymphocytes # (Manual) Monocytes # (Manual) Eosinophils # (Manual) Basophils # (Manual) PT INR APTT Heparin Anti-Xa Level POC ABG pH POC ABG pCO2 POC ABG pO2 Sodium Potassium Chloride Carbon Dioxide BUN Creatinine Glucose POC Glucose 296 H 210 H 190 H Calcium Phosphorus Magnesium AST Alkaline Phosphatase Troponin T C-Reactive Protein Total Protein Albumin Triglycerides HDL Cholesterol Lipase Vitamin B12 TSH Urine WBC (Auto) Urine Chloride Urine Total Protein Vancomycin Trough Crossmatch 10/13/16 10/13/16 10/13/16 16:14 16:14 17:17 WBC RBC Hgb Hct MCV RDW Plt Count Lymph % (Auto) Wells % (Auto) Wells # Seg Neutrophils % Seg Neuts % (Manual) Lymphocytes % (Manual) Monocytes % (Manual) Basophils % (Manual) Nucleated RBC % Seg Neutrophils # Seg Neutrophils # Man Lymphocytes # (Manual) Monocytes # (Manual) Eosinophils # (Manual) Basophils # (Manual) PT INR APTT Heparin Anti-Xa Level POC ABG pH POC ABG pCO2 POC ABG pO2 Sodium Potassium Chloride Carbon Dioxide 17 L BUN 58 H Creatinine 1.8 H Glucose 172 H POC Glucose 193 H Calcium 7.7 L Phosphorus Magnesium AST Alkaline Phosphatase Troponin T C-Reactive Protein 10.50 H Total Protein Albumin Triglycerides HDL Cholesterol Lipase Vitamin B12 TSH Urine WBC (Auto) Urine Chloride Urine Total Protein Vancomycin Trough Crossmatch 10/13/16 10/13/16 10/13/16 17:55 18:32 19:41 WBC RBC Hgb Hct MCV RDW Plt Count Lymph % (Auto) Wells % (Auto) Wells # Seg Neutrophils % Seg Neuts % (Manual) Lymphocytes % (Manual) Monocytes % (Manual) Basophils % (Manual) Nucleated RBC % Seg Neutrophils # Seg Neutrophils # Man Lymphocytes # (Manual) Monocytes # (Manual) Eosinophils # (Manual) Basophils # (Manual) PT INR APTT Heparin Anti-Xa Level POC ABG pH POC ABG pCO2 30.6 L POC ABG pO2 218 H Sodium Potassium Chloride Carbon Dioxide BUN Creatinine Glucose POC Glucose 192 H 177 H Calcium Phosphorus Magnesium AST Alkaline Phosphatase Troponin T C-Reactive Protein Total Protein Albumin Triglycerides HDL Cholesterol Lipase Vitamin B12 TSH Urine WBC (Auto) Urine Chloride Urine Total Protein Vancomycin Trough Crossmatch 10/13/16 10/13/16 10/13/16 20:54 22:07 23:13 WBC RBC Hgb Hct MCV RDW Plt Count Lymph % (Auto) Wells % (Auto) Wells # Seg Neutrophils % Seg Neuts % (Manual) Lymphocytes % (Manual) Monocytes % (Manual) Basophils % (Manual) Nucleated RBC % Seg Neutrophils # Seg Neutrophils # Man Lymphocytes # (Manual) Monocytes # (Manual) Eosinophils # (Manual) Basophils # (Manual) PT INR APTT Heparin Anti-Xa Level POC ABG pH POC ABG pCO2 POC ABG pO2 Sodium Potassium Chloride Carbon Dioxide BUN Creatinine Glucose POC Glucose 178 H 160 H 168 H Calcium Phosphorus Magnesium AST Alkaline Phosphatase Troponin T C-Reactive Protein Total Protein Albumin Triglycerides HDL Cholesterol Lipase Vitamin B12 TSH Urine WBC (Auto) Urine Chloride Urine Total Protein Vancomycin Trough Crossmatch 10/13/16 10/13/16 10/14/16 23:25 Unknown 00:21 WBC RBC Hgb Hct MCV RDW Plt Count Lymph % (Auto) Wells % (Auto) Wells # Seg Neutrophils % Seg Neuts % (Manual) Lymphocytes % (Manual) Monocytes % (Manual) Basophils % (Manual) Nucleated RBC % Seg Neutrophils # Seg Neutrophils # Man Lymphocytes # (Manual) Monocytes # (Manual) Eosinophils # (Manual) Basophils # (Manual) PT INR APTT Heparin Anti-Xa Level POC ABG pH POC ABG pCO2 POC ABG pO2 Sodium 148 H Potassium Chloride 114.6 H Carbon Dioxide 17 L BUN 56 H Creatinine 1.6 H Glucose 151 H POC Glucose 171 H Calcium 7.8 L Phosphorus Magnesium AST Alkaline Phosphatase Troponin T C-Reactive Protein Total Protein Albumin Triglycerides HDL Cholesterol Lipase Vitamin B12 TSH Urine WBC (Auto) Urine Chloride 10.0 L Urine Total Protein < 4 L Vancomycin Trough Crossmatch 10/14/16 10/14/16 10/14/16 01:22 02:29 03:30 WBC RBC Hgb Hct MCV RDW Plt Count Lymph % (Auto) Wells % (Auto) Wells # Seg Neutrophils % Seg Neuts % (Manual) Lymphocytes % (Manual) Monocytes % (Manual) Basophils % (Manual) Nucleated RBC % Seg Neutrophils # Seg Neutrophils # Man Lymphocytes # (Manual) Monocytes # (Manual) Eosinophils # (Manual) Basophils # (Manual) PT INR APTT Heparin Anti-Xa Level POC ABG pH POC ABG pCO2 POC ABG pO2 Sodium Potassium Chloride Carbon Dioxide BUN Creatinine Glucose POC Glucose 144 H 136 H 143 H Calcium Phosphorus Magnesium AST Alkaline Phosphatase Troponin T C-Reactive Protein Total Protein Albumin Triglycerides HDL Cholesterol Lipase Vitamin B12 TSH Urine WBC (Auto) Urine Chloride Urine Total Protein Vancomycin Trough Crossmatch 10/14/16 10/14/16 10/14/16 04:28 05:16 05:44 WBC RBC Hgb Hct MCV RDW Plt Count Lymph % (Auto) Wells % (Auto) Wells # Seg Neutrophils % Seg Neuts % (Manual) Lymphocytes % (Manual) Monocytes % (Manual) Basophils % (Manual) Nucleated RBC % Seg Neutrophils # Seg Neutrophils # Man Lymphocytes # (Manual) Monocytes # (Manual) Eosinophils # (Manual) Basophils # (Manual) PT INR APTT Heparin Anti-Xa Level POC ABG pH POC ABG pCO2 28.2 L POC ABG pO2 125 H Sodium Potassium Chloride Carbon Dioxide BUN Creatinine Glucose POC Glucose 133 H 160 H Calcium Phosphorus Magnesium AST Alkaline Phosphatase Troponin T C-Reactive Protein Total Protein Albumin Triglycerides HDL Cholesterol Lipase Vitamin B12 TSH Urine WBC (Auto) Urine Chloride Urine Total Protein Vancomycin Trough Crossmatch 10/14/16 10/14/16 10/14/16 06:12 06:45 07:03 WBC RBC Hgb Hct MCV RDW Plt Count Lymph % (Auto) Wells % (Auto) Wells # Seg Neutrophils % Seg Neuts % (Manual) Lymphocytes % (Manual) Monocytes % (Manual) Basophils % (Manual) Nucleated RBC % Seg Neutrophils # Seg Neutrophils # Man Lymphocytes # (Manual) Monocytes # (Manual) Eosinophils # (Manual) Basophils # (Manual) PT INR APTT Heparin Anti-Xa Level POC ABG pH POC ABG pCO2 POC ABG pO2 Sodium 149 H Potassium Chloride 115.4 H Carbon Dioxide 17 L BUN 45 H Creatinine 1.5 H Glucose 139 H POC Glucose 149 H Calcium 7.4 L Phosphorus 1.0 L D Magnesium AST Alkaline Phosphatase Troponin T C-Reactive Protein Total Protein Albumin Triglycerides HDL Cholesterol Lipase Vitamin B12 TSH Urine WBC (Auto) Urine Chloride Urine Total Protein Vancomycin Trough Crossmatch 10/14/16 10/14/16 10/14/16 07:03 08:02 09:16 WBC RBC Hgb Hct MCV RDW Plt Count Lymph % (Auto) Wells % (Auto) Wells # Seg Neutrophils % Seg Neuts % (Manual) Lymphocytes % (Manual) Monocytes % (Manual) Basophils % (Manual) Nucleated RBC % Seg Neutrophils # Seg Neutrophils # Man Lymphocytes # (Manual) Monocytes # (Manual) Eosinophils # (Manual) Basophils # (Manual) PT INR APTT Heparin Anti-Xa Level POC ABG pH POC ABG pCO2 POC ABG pO2 Sodium Potassium Chloride Carbon Dioxide BUN Creatinine Glucose POC Glucose 156 H 158 H Calcium Phosphorus Magnesium AST Alkaline Phosphatase Troponin T C-Reactive Protein Total Protein Albumin Triglycerides HDL Cholesterol Lipase 738 H Vitamin B12 TSH Urine WBC (Auto) Urine Chloride Urine Total Protein Vancomycin Trough Crossmatch 10/14/16 10/14/16 10/14/16 10:26 11:03 11:57 WBC RBC Hgb Hct MCV RDW Plt Count Lymph % (Auto) Wells % (Auto) Wells # Seg Neutrophils % Seg Neuts % (Manual) Lymphocytes % (Manual) Monocytes % (Manual) Basophils % (Manual) Nucleated RBC % Seg Neutrophils # Seg Neutrophils # Man Lymphocytes # (Manual) Monocytes # (Manual) Eosinophils # (Manual) Basophils # (Manual) PT INR APTT Heparin Anti-Xa Level POC ABG pH 7.198 L POC ABG pCO2 47.5 H POC ABG pO2 Sodium Potassium Chloride Carbon Dioxide BUN Creatinine Glucose POC Glucose 174 H 189 H Calcium Phosphorus Magnesium AST Alkaline Phosphatase Troponin T C-Reactive Protein Total Protein Albumin Triglycerides HDL Cholesterol Lipase Vitamin B12 TSH Urine WBC (Auto) Urine Chloride Urine Total Protein Vancomycin Trough Crossmatch 10/14/16 10/14/16 10/14/16 12:02 12:02 13:11 WBC 13.4 H RBC 3.60 L Hgb Hct MCV 98 H D RDW 13.1 L Plt Count Lymph % (Auto) Wells % (Auto) Wells # Seg Neutrophils % Seg Neuts % (Manual) Lymphocytes % (Manual) Monocytes % (Manual) Basophils % (Manual) Nucleated RBC % Seg Neutrophils # Seg Neutrophils # Man Lymphocytes # (Manual) Monocytes # (Manual) Eosinophils # (Manual) Basophils # (Manual) PT INR APTT Heparin Anti-Xa Level POC ABG pH POC ABG pCO2 POC ABG pO2 Sodium Potassium Chloride 110.7 H Carbon Dioxide 19 L BUN 38 H Creatinine 1.4 H Glucose 182 H POC Glucose 173 H Calcium 7.5 L Phosphorus Magnesium AST Alkaline Phosphatase Troponin T C-Reactive Protein Total Protein Albumin Triglycerides HDL Cholesterol Lipase Vitamin B12 TSH Urine WBC (Auto) Urine Chloride Urine Total Protein Vancomycin Trough Crossmatch 10/14/16 10/14/16 10/14/16 14:24 15:31 16:36 WBC RBC Hgb Hct MCV RDW Plt Count Lymph % (Auto) Wells % (Auto) Wells # Seg Neutrophils % Seg Neuts % (Manual) Lymphocytes % (Manual) Monocytes % (Manual) Basophils % (Manual) Nucleated RBC % Seg Neutrophils # Seg Neutrophils # Man Lymphocytes # (Manual) Monocytes # (Manual) Eosinophils # (Manual) Basophils # (Manual) PT INR APTT Heparin Anti-Xa Level POC ABG pH POC ABG pCO2 POC ABG pO2 Sodium Potassium Chloride Carbon Dioxide BUN Creatinine Glucose POC Glucose 123 H 124 H 156 H Calcium Phosphorus Magnesium AST Alkaline Phosphatase Troponin T C-Reactive Protein Total Protein Albumin Triglycerides HDL Cholesterol Lipase Vitamin B12 TSH Urine WBC (Auto) Urine Chloride Urine Total Protein Vancomycin Trough Crossmatch 10/14/16 10/14/16 10/14/16 17:43 19:00 20:08 WBC RBC Hgb Hct MCV RDW Plt Count Lymph % (Auto) Wells % (Auto) Wells # Seg Neutrophils % Seg Neuts % (Manual) Lymphocytes % (Manual) Monocytes % (Manual) Basophils % (Manual) Nucleated RBC % Seg Neutrophils # Seg Neutrophils # Man Lymphocytes # (Manual) Monocytes # (Manual) Eosinophils # (Manual) Basophils # (Manual) PT INR APTT Heparin Anti-Xa Level POC ABG pH POC ABG pCO2 POC ABG pO2 Sodium Potassium Chloride Carbon Dioxide BUN Creatinine Glucose POC Glucose 154 H 123 H 138 H Calcium Phosphorus Magnesium AST Alkaline Phosphatase Troponin T C-Reactive Protein Total Protein Albumin Triglycerides HDL Cholesterol Lipase Vitamin B12 TSH Urine WBC (Auto) Urine Chloride Urine Total Protein Vancomycin Trough Crossmatch 10/14/16 10/14/16 10/14/16 21:17 22:25 23:37 WBC RBC Hgb Hct MCV RDW Plt Count Lymph % (Auto) Wells % (Auto) Wells # Seg Neutrophils % Seg Neuts % (Manual) Lymphocytes % (Manual) Monocytes % (Manual) Basophils % (Manual) Nucleated RBC % Seg Neutrophils # Seg Neutrophils # Man Lymphocytes # (Manual) Monocytes # (Manual) Eosinophils # (Manual) Basophils # (Manual) PT INR APTT Heparin Anti-Xa Level POC ABG pH POC ABG pCO2 POC ABG pO2 Sodium Potassium Chloride Carbon Dioxide BUN Creatinine Glucose POC Glucose 148 H 132 H 137 H Calcium Phosphorus Magnesium AST Alkaline Phosphatase Troponin T C-Reactive Protein Total Protein Albumin Triglycerides HDL Cholesterol Lipase Vitamin B12 TSH Urine WBC (Auto) Urine Chloride Urine Total Protein Vancomycin Trough Crossmatch 10/15/16 10/15/16 10/15/16 00:49 01:53 03:06 WBC RBC Hgb Hct MCV RDW Plt Count Lymph % (Auto) Wells % (Auto) Wells # Seg Neutrophils % Seg Neuts % (Manual) Lymphocytes % (Manual) Monocytes % (Manual) Basophils % (Manual) Nucleated RBC % Seg Neutrophils # Seg Neutrophils # Man Lymphocytes # (Manual) Monocytes # (Manual) Eosinophils # (Manual) Basophils # (Manual) PT INR APTT Heparin Anti-Xa Level POC ABG pH POC ABG pCO2 POC ABG pO2 Sodium Potassium Chloride Carbon Dioxide BUN Creatinine Glucose POC Glucose 132 H 134 H 134 H Calcium Phosphorus Magnesium AST Alkaline Phosphatase Troponin T C-Reactive Protein Total Protein Albumin Triglycerides HDL Cholesterol Lipase Vitamin B12 TSH Urine WBC (Auto) Urine Chloride Urine Total Protein Vancomycin Trough Crossmatch 10/15/16 10/15/16 10/15/16 04:40 04:46 06:21 WBC RBC Hgb Hct MCV RDW Plt Count Lymph % (Auto) Wells % (Auto) Wells # Seg Neutrophils % Seg Neuts % (Manual) Lymphocytes % (Manual) Monocytes % (Manual) Basophils % (Manual) Nucleated RBC % Seg Neutrophils # Seg Neutrophils # Man Lymphocytes # (Manual) Monocytes # (Manual) Eosinophils # (Manual) Basophils # (Manual) PT INR APTT Heparin Anti-Xa Level POC ABG pH POC ABG pCO2 30.7 L POC ABG pO2 108 H Sodium Potassium Chloride 109.0 H Carbon Dioxide 17 L BUN 27 H Creatinine Glucose 124 H POC Glucose 160 H Calcium 7.5 L Phosphorus Magnesium AST 79 H Alkaline Phosphatase Troponin T C-Reactive Protein Total Protein 5.5 L Albumin 3.0 L Triglycerides HDL Cholesterol Lipase Vitamin B12 TSH Urine WBC (Auto) Urine Chloride Urine Total Protein Vancomycin Trough Crossmatch 10/15/16 10/15/16 10/15/16 07:12 08:01 09:03 WBC RBC Hgb Hct MCV RDW Plt Count Lymph % (Auto) Wells % (Auto) Wells # Seg Neutrophils % Seg Neuts % (Manual) Lymphocytes % (Manual) Monocytes % (Manual) Basophils % (Manual) Nucleated RBC % Seg Neutrophils # Seg Neutrophils # Man Lymphocytes # (Manual) Monocytes # (Manual) Eosinophils # (Manual) Basophils # (Manual) PT INR APTT Heparin Anti-Xa Level POC ABG pH POC ABG pCO2 POC ABG pO2 Sodium Potassium Chloride Carbon Dioxide BUN Creatinine Glucose POC Glucose 179 H 187 H 165 H Calcium Phosphorus Magnesium AST Alkaline Phosphatase Troponin T C-Reactive Protein Total Protein Albumin Triglycerides HDL Cholesterol Lipase Vitamin B12 TSH Urine WBC (Auto) Urine Chloride Urine Total Protein Vancomycin Trough Crossmatch 10/15/16 10/15/16 10/15/16 10:06 10:06 10:07 WBC 12.1 H RBC 3.01 L Hgb 9.7 L Hct 29.6 L MCV 98 H RDW Plt Count 129 L Lymph % (Auto) Wells % (Auto) Wells # Seg Neutrophils % Seg Neuts % (Manual) Lymphocytes % (Manual) Monocytes % (Manual) Basophils % (Manual) Nucleated RBC % Seg Neutrophils # Seg Neutrophils # Man Lymphocytes # (Manual) Monocytes # (Manual) Eosinophils # (Manual) Basophils # (Manual) PT INR APTT Heparin Anti-Xa Level POC ABG pH POC ABG pCO2 POC ABG pO2 Sodium Potassium 3.2 L D Chloride 109.6 H Carbon Dioxide 18 L BUN 22 H Creatinine Glucose 127 H POC Glucose 147 H Calcium 7.0 L Phosphorus Magnesium AST Alkaline Phosphatase Troponin T C-Reactive Protein Total Protein Albumin Triglycerides HDL Cholesterol Lipase Vitamin B12 TSH Urine WBC (Auto) Urine Chloride Urine Total Protein Vancomycin Trough Crossmatch 10/15/16 10/15/16 10/15/16 11:05 11:06 11:57 WBC RBC Hgb Hct MCV RDW Plt Count Lymph % (Auto) Wells % (Auto) Wells # Seg Neutrophils % Seg Neuts % (Manual) Lymphocytes % (Manual) Monocytes % (Manual) Basophils % (Manual) Nucleated RBC % Seg Neutrophils # Seg Neutrophils # Man Lymphocytes # (Manual) Monocytes # (Manual) Eosinophils # (Manual) Basophils # (Manual) PT INR APTT Heparin Anti-Xa Level POC ABG pH 7.305 L POC ABG pCO2 POC ABG pO2 Sodium Potassium Chloride Carbon Dioxide BUN Creatinine Glucose POC Glucose 145 H Calcium Phosphorus Magnesium AST Alkaline Phosphatase Troponin T C-Reactive Protein Total Protein Albumin Triglycerides HDL Cholesterol Lipase Vitamin B12 TSH Urine WBC (Auto) 7.0 H Urine Chloride Urine Total Protein Vancomycin Trough Crossmatch 10/15/16 10/15/16 10/15/16 12:04 13:59 15:24 WBC RBC Hgb Hct MCV RDW Plt Count Lymph % (Auto) Wells % (Auto) Wells # Seg Neutrophils % Seg Neuts % (Manual) Lymphocytes % (Manual) Monocytes % (Manual) Basophils % (Manual) Nucleated RBC % Seg Neutrophils # Seg Neutrophils # Man Lymphocytes # (Manual) Monocytes # (Manual) Eosinophils # (Manual) Basophils # (Manual) PT INR APTT Heparin Anti-Xa Level POC ABG pH POC ABG pCO2 POC ABG pO2 Sodium Potassium Chloride Carbon Dioxide BUN Creatinine Glucose POC Glucose 123 H 147 H 153 H Calcium Phosphorus Magnesium AST Alkaline Phosphatase Troponin T C-Reactive Protein Total Protein Albumin Triglycerides HDL Cholesterol Lipase Vitamin B12 TSH Urine WBC (Auto) Urine Chloride Urine Total Protein Vancomycin Trough Crossmatch 10/15/16 10/15/16 10/15/16 16:30 17:34 18:30 WBC RBC Hgb Hct MCV RDW Plt Count Lymph % (Auto) Wells % (Auto) Wells # Seg Neutrophils % Seg Neuts % (Manual) Lymphocytes % (Manual) Monocytes % (Manual) Basophils % (Manual) Nucleated RBC % Seg Neutrophils # Seg Neutrophils # Man Lymphocytes # (Manual) Monocytes # (Manual) Eosinophils # (Manual) Basophils # (Manual) PT INR APTT Heparin Anti-Xa Level POC ABG pH POC ABG pCO2 POC ABG pO2 Sodium Potassium Chloride Carbon Dioxide BUN Creatinine Glucose POC Glucose 223 H 236 H 164 H Calcium Phosphorus Magnesium AST Alkaline Phosphatase Troponin T C-Reactive Protein Total Protein Albumin Triglycerides HDL Cholesterol Lipase Vitamin B12 TSH Urine WBC (Auto) Urine Chloride Urine Total Protein Vancomycin Trough Crossmatch 10/15/16 10/15/16 10/15/16 19:14 20:31 21:23 WBC RBC Hgb Hct MCV RDW Plt Count Lymph % (Auto) Wells % (Auto) Wells # Seg Neutrophils % Seg Neuts % (Manual) Lymphocytes % (Manual) Monocytes % (Manual) Basophils % (Manual) Nucleated RBC % Seg Neutrophils # Seg Neutrophils # Man Lymphocytes # (Manual) Monocytes # (Manual) Eosinophils # (Manual) Basophils # (Manual) PT INR APTT Heparin Anti-Xa Level POC ABG pH POC ABG pCO2 POC ABG pO2 Sodium Potassium Chloride Carbon Dioxide BUN Creatinine Glucose POC Glucose 138 H 158 H 158 H Calcium Phosphorus Magnesium AST Alkaline Phosphatase Troponin T C-Reactive Protein Total Protein Albumin Triglycerides HDL Cholesterol Lipase Vitamin B12 TSH Urine WBC (Auto) Urine Chloride Urine Total Protein Vancomycin Trough Crossmatch 10/15/16 10/15/16 10/16/16 22:04 22:57 00:11 WBC RBC Hgb Hct MCV RDW Plt Count Lymph % (Auto) Wells % (Auto) Wells # Seg Neutrophils % Seg Neuts % (Manual) Lymphocytes % (Manual) Monocytes % (Manual) Basophils % (Manual) Nucleated RBC % Seg Neutrophils # Seg Neutrophils # Man Lymphocytes # (Manual) Monocytes # (Manual) Eosinophils # (Manual) Basophils # (Manual) PT INR APTT Heparin Anti-Xa Level POC ABG pH POC ABG pCO2 POC ABG pO2 Sodium Potassium Chloride Carbon Dioxide BUN Creatinine Glucose POC Glucose 168 H 213 H 166 H Calcium Phosphorus Magnesium AST Alkaline Phosphatase Troponin T C-Reactive Protein Total Protein Albumin Triglycerides HDL Cholesterol Lipase Vitamin B12 TSH Urine WBC (Auto) Urine Chloride Urine Total Protein Vancomycin Trough Crossmatch 10/16/16 10/16/16 10/16/16 01:16 02:32 03:38 WBC RBC Hgb Hct MCV RDW Plt Count Lymph % (Auto) Wells % (Auto) Wells # Seg Neutrophils % Seg Neuts % (Manual) Lymphocytes % (Manual) Monocytes % (Manual) Basophils % (Manual) Nucleated RBC % Seg Neutrophils # Seg Neutrophils # Man Lymphocytes # (Manual) Monocytes # (Manual) Eosinophils # (Manual) Basophils # (Manual) PT INR APTT Heparin Anti-Xa Level POC ABG pH POC ABG pCO2 POC ABG pO2 Sodium Potassium Chloride Carbon Dioxide BUN Creatinine Glucose POC Glucose 171 H 164 H 147 H Calcium Phosphorus Magnesium AST Alkaline Phosphatase Troponin T C-Reactive Protein Total Protein Albumin Triglycerides HDL Cholesterol Lipase Vitamin B12 TSH Urine WBC (Auto) Urine Chloride Urine Total Protein Vancomycin Trough Crossmatch 10/16/16 10/16/16 10/16/16 04:14 04:14 04:49 WBC RBC Hgb Hct MCV RDW Plt Count Lymph % (Auto) Wells % (Auto) Wells # Seg Neutrophils % Seg Neuts % (Manual) Lymphocytes % (Manual) Monocytes % (Manual) Basophils % (Manual) Nucleated RBC % Seg Neutrophils # Seg Neutrophils # Man Lymphocytes # (Manual) Monocytes # (Manual) Eosinophils # (Manual) Basophils # (Manual) PT INR APTT Heparin Anti-Xa Level POC ABG pH POC ABG pCO2 POC ABG pO2 Sodium 147 H Potassium Chloride 110.9 H Carbon Dioxide 19 L BUN Creatinine Glucose 139 H POC Glucose 144 H Calcium 7.3 L Phosphorus 2.3 L Magnesium AST Alkaline Phosphatase Troponin T C-Reactive Protein Total Protein Albumin Triglycerides HDL Cholesterol Lipase 143 H Vitamin B12 TSH Urine WBC (Auto) Urine Chloride Urine Total Protein Vancomycin Trough Crossmatch 10/16/16 10/16/16 10/16/16 05:03 05:41 05:58 WBC 16.5 H RBC 3.36 L Hgb Hct MCV 98 H RDW 13.1 L Plt Count Lymph % (Auto) 8.5 L Wells % (Auto) 7.6 H Wells # 1.3 H Seg Neutrophils % 83.3 H Seg Neuts % (Manual) Lymphocytes % (Manual) Monocytes % (Manual) Basophils % (Manual) Nucleated RBC % Seg Neutrophils # 13.8 H Seg Neutrophils # Man Lymphocytes # (Manual) Monocytes # (Manual) Eosinophils # (Manual) Basophils # (Manual) PT INR APTT Heparin Anti-Xa Level POC ABG pH POC ABG pCO2 30.7 L POC ABG pO2 128 H Sodium Potassium Chloride Carbon Dioxide BUN Creatinine Glucose POC Glucose 131 H Calcium Phosphorus Magnesium AST Alkaline Phosphatase Troponin T C-Reactive Protein Total Protein Albumin Triglycerides HDL Cholesterol Lipase Vitamin B12 TSH Urine WBC (Auto) Urine Chloride Urine Total Protein Vancomycin Trough Crossmatch 10/16/16 10/16/16 10/16/16 06:32 09:27 09:35 WBC RBC Hgb Hct MCV RDW Plt Count Lymph % (Auto) Wells % (Auto) Wells # Seg Neutrophils % Seg Neuts % (Manual) Lymphocytes % (Manual) Monocytes % (Manual) Basophils % (Manual) Nucleated RBC % Seg Neutrophils # Seg Neutrophils # Man Lymphocytes # (Manual) Monocytes # (Manual) Eosinophils # (Manual) Basophils # (Manual) PT INR APTT Heparin Anti-Xa Level POC ABG pH POC ABG pCO2 32.8 L POC ABG pO2 137 H Sodium Potassium Chloride Carbon Dioxide BUN Creatinine Glucose POC Glucose 121 H 150 H Calcium Phosphorus Magnesium AST Alkaline Phosphatase Troponin T C-Reactive Protein Total Protein Albumin Triglycerides HDL Cholesterol Lipase Vitamin B12 TSH Urine WBC (Auto) Urine Chloride Urine Total Protein Vancomycin Trough Crossmatch 10/16/16 10/16/16 10/16/16 10:47 13:27 14:24 WBC RBC Hgb Hct MCV RDW Plt Count Lymph % (Auto) Wells % (Auto) Wells # Seg Neutrophils % Seg Neuts % (Manual) Lymphocytes % (Manual) Monocytes % (Manual) Basophils % (Manual) Nucleated RBC % Seg Neutrophils # Seg Neutrophils # Man Lymphocytes # (Manual) Monocytes # (Manual) Eosinophils # (Manual) Basophils # (Manual) PT INR APTT Heparin Anti-Xa Level POC ABG pH POC ABG pCO2 POC ABG pO2 Sodium Potassium Chloride Carbon Dioxide BUN Creatinine Glucose POC Glucose 184 H 171 H 174 H Calcium Phosphorus Magnesium AST Alkaline Phosphatase Troponin T C-Reactive Protein Total Protein Albumin Triglycerides HDL Cholesterol Lipase Vitamin B12 TSH Urine WBC (Auto) Urine Chloride Urine Total Protein Vancomycin Trough Crossmatch 10/16/16 10/16/16 10/16/16 15:48 16:26 18:17 WBC RBC Hgb Hct MCV RDW Plt Count Lymph % (Auto) Wells % (Auto) Wells # Seg Neutrophils % Seg Neuts % (Manual) Lymphocytes % (Manual) Monocytes % (Manual) Basophils % (Manual) Nucleated RBC % Seg Neutrophils # Seg Neutrophils # Man Lymphocytes # (Manual) Monocytes # (Manual) Eosinophils # (Manual) Basophils # (Manual) PT INR APTT Heparin Anti-Xa Level POC ABG pH POC ABG pCO2 POC ABG pO2 Sodium Potassium Chloride Carbon Dioxide BUN Creatinine Glucose POC Glucose 205 H 204 H 234 H Calcium Phosphorus Magnesium AST Alkaline Phosphatase Troponin T C-Reactive Protein Total Protein Albumin Triglycerides HDL Cholesterol Lipase Vitamin B12 TSH Urine WBC (Auto) Urine Chloride Urine Total Protein Vancomycin Trough Crossmatch 10/16/16 10/16/16 10/16/16 19:40 20:33 21:36 WBC RBC Hgb Hct MCV RDW Plt Count Lymph % (Auto) Wells % (Auto) Wells # Seg Neutrophils % Seg Neuts % (Manual) Lymphocytes % (Manual) Monocytes % (Manual) Basophils % (Manual) Nucleated RBC % Seg Neutrophils # Seg Neutrophils # Man Lymphocytes # (Manual) Monocytes # (Manual) Eosinophils # (Manual) Basophils # (Manual) PT INR APTT Heparin Anti-Xa Level POC ABG pH POC ABG pCO2 POC ABG pO2 Sodium Potassium Chloride Carbon Dioxide BUN Creatinine Glucose POC Glucose 167 H 153 H 158 H Calcium Phosphorus Magnesium AST Alkaline Phosphatase Troponin T C-Reactive Protein Total Protein Albumin Triglycerides HDL Cholesterol Lipase Vitamin B12 TSH Urine WBC (Auto) Urine Chloride Urine Total Protein Vancomycin Trough Crossmatch 10/16/16 10/16/16 10/17/16 22:54 23:48 00:47 WBC RBC Hgb Hct MCV RDW Plt Count Lymph % (Auto) Wells % (Auto) Wells # Seg Neutrophils % Seg Neuts % (Manual) Lymphocytes % (Manual) Monocytes % (Manual) Basophils % (Manual) Nucleated RBC % Seg Neutrophils # Seg Neutrophils # Man Lymphocytes # (Manual) Monocytes # (Manual) Eosinophils # (Manual) Basophils # (Manual) PT INR APTT Heparin Anti-Xa Level POC ABG pH POC ABG pCO2 POC ABG pO2 Sodium Potassium Chloride Carbon Dioxide BUN Creatinine Glucose POC Glucose 180 H 207 H 196 H Calcium Phosphorus Magnesium AST Alkaline Phosphatase Troponin T C-Reactive Protein Total Protein Albumin Triglycerides HDL Cholesterol Lipase Vitamin B12 TSH Urine WBC (Auto) Urine Chloride Urine Total Protein Vancomycin Trough Crossmatch 10/17/16 10/17/16 10/17/16 01:57 02:49 03:50 WBC RBC Hgb Hct MCV RDW Plt Count Lymph % (Auto) Wells % (Auto) Wells # Seg Neutrophils % Seg Neuts % (Manual) Lymphocytes % (Manual) Monocytes % (Manual) Basophils % (Manual) Nucleated RBC % Seg Neutrophils # Seg Neutrophils # Man Lymphocytes # (Manual) Monocytes # (Manual) Eosinophils # (Manual) Basophils # (Manual) PT INR APTT Heparin Anti-Xa Level POC ABG pH POC ABG pCO2 POC ABG pO2 Sodium Potassium Chloride Carbon Dioxide BUN Creatinine Glucose POC Glucose 180 H 151 H 106 H Calcium Phosphorus Magnesium AST Alkaline Phosphatase Troponin T C-Reactive Protein Total Protein Albumin Triglycerides HDL Cholesterol Lipase Vitamin B12 TSH Urine WBC (Auto) Urine Chloride Urine Total Protein Vancomycin Trough Crossmatch 10/17/16 10/17/16 10/17/16 04:59 06:03 06:35 WBC RBC Hgb Hct MCV RDW Plt Count Lymph % (Auto) Wells % (Auto) Wells # Seg Neutrophils % Seg Neuts % (Manual) Lymphocytes % (Manual) Monocytes % (Manual) Basophils % (Manual) Nucleated RBC % Seg Neutrophils # Seg Neutrophils # Man Lymphocytes # (Manual) Monocytes # (Manual) Eosinophils # (Manual) Basophils # (Manual) PT INR APTT Heparin Anti-Xa Level POC ABG pH 7.453 H POC ABG pCO2 30.1 L POC ABG pO2 111 H Sodium Potassium Chloride Carbon Dioxide BUN Creatinine Glucose POC Glucose 145 H 157 H Calcium Phosphorus Magnesium AST Alkaline Phosphatase Troponin T C-Reactive Protein Total Protein Albumin Triglycerides HDL Cholesterol Lipase Vitamin B12 TSH Urine WBC (Auto) Urine Chloride Urine Total Protein Vancomycin Trough Crossmatch 10/17/16 10/17/16 10/17/16 07:08 07:11 08:01 WBC RBC Hgb Hct MCV RDW Plt Count Lymph % (Auto) Wells % (Auto) Wells # Seg Neutrophils % Seg Neuts % (Manual) Lymphocytes % (Manual) Monocytes % (Manual) Basophils % (Manual) Nucleated RBC % Seg Neutrophils # Seg Neutrophils # Man Lymphocytes # (Manual) Monocytes # (Manual) Eosinophils # (Manual) Basophils # (Manual) PT INR APTT Heparin Anti-Xa Level POC ABG pH POC ABG pCO2 POC ABG pO2 Sodium 147 H Potassium Chloride 113.8 H Carbon Dioxide 19 L BUN Creatinine Glucose 136 H POC Glucose 136 H 152 H Calcium 7.7 L Phosphorus Magnesium AST Alkaline Phosphatase Troponin T C-Reactive Protein Total Protein Albumin Triglycerides HDL Cholesterol Lipase Vitamin B12 TSH Urine WBC (Auto) Urine Chloride Urine Total Protein Vancomycin Trough Crossmatch 10/17/16 10/17/16 10/17/16 08:23 09:17 09:53 WBC 18.1 H RBC 3.01 L Hgb 9.7 L Hct 29.4 L MCV 98 H RDW Plt Count 116 L Lymph % (Auto) Wells % (Auto) Wells # Seg Neutrophils % Seg Neuts % (Manual) 77.0 H Lymphocytes % (Manual) 4.0 L Monocytes % (Manual) 12.0 H Basophils % (Manual) Nucleated RBC % Seg Neutrophils # Seg Neutrophils # Man 13.9 H Lymphocytes # (Manual) 0.7 L Monocytes # (Manual) 2.2 H Eosinophils # (Manual) Basophils # (Manual) PT INR APTT Heparin Anti-Xa Level POC ABG pH POC ABG pCO2 POC ABG pO2 Sodium Potassium Chloride Carbon Dioxide BUN Creatinine Glucose POC Glucose 148 H 137 H Calcium Phosphorus Magnesium AST Alkaline Phosphatase Troponin T C-Reactive Protein Total Protein Albumin Triglycerides HDL Cholesterol Lipase Vitamin B12 TSH Urine WBC (Auto) Urine Chloride Urine Total Protein Vancomycin Trough Crossmatch 10/17/16 10/17/16 10/17/16 11:43 16:07 17:42 WBC RBC Hgb Hct MCV RDW Plt Count Lymph % (Auto) Wells % (Auto) Wells # Seg Neutrophils % Seg Neuts % (Manual) Lymphocytes % (Manual) Monocytes % (Manual) Basophils % (Manual) Nucleated RBC % Seg Neutrophils # Seg Neutrophils # Man Lymphocytes # (Manual) Monocytes # (Manual) Eosinophils # (Manual) Basophils # (Manual) PT 16.4 H INR 1.33 H APTT 38.8 H Heparin Anti-Xa Level POC ABG pH POC ABG pCO2 POC ABG pO2 Sodium Potassium Chloride Carbon Dioxide BUN Creatinine Glucose POC Glucose 179 H 153 H Calcium Phosphorus Magnesium AST Alkaline Phosphatase Troponin T C-Reactive Protein Total Protein Albumin Triglycerides HDL Cholesterol Lipase Vitamin B12 TSH Urine WBC (Auto) Urine Chloride Urine Total Protein Vancomycin Trough Crossmatch 10/17/16 10/18/16 10/18/16 22:54 04:37 05:39 WBC RBC Hgb Hct MCV RDW Plt Count Lymph % (Auto) Wells % (Auto) Wells # Seg Neutrophils % Seg Neuts % (Manual) Lymphocytes % (Manual) Monocytes % (Manual) Basophils % (Manual) Nucleated RBC % Seg Neutrophils # Seg Neutrophils # Man Lymphocytes # (Manual) Monocytes # (Manual) Eosinophils # (Manual) Basophils # (Manual) PT INR APTT Heparin Anti-Xa Level 0.27 L POC ABG pH 7.454 H POC ABG pCO2 30.8 L POC ABG pO2 115 H Sodium Potassium Chloride Carbon Dioxide BUN Creatinine Glucose POC Glucose 69 L Calcium Phosphorus Magnesium AST Alkaline Phosphatase Troponin T C-Reactive Protein Total Protein Albumin Triglycerides HDL Cholesterol Lipase Vitamin B12 TSH Urine WBC (Auto) Urine Chloride Urine Total Protein Vancomycin Trough Crossmatch 10/18/16 10/18/16 10/18/16 06:46 06:46 06:46 WBC 20.5 H RBC 2.62 L Hgb 8.4 L Hct 26.0 L MCV 100 H RDW Plt Count Lymph % (Auto) Wells % (Auto) Wells # Seg Neutrophils % Seg Neuts % (Manual) 75.0 H Lymphocytes % (Manual) 9.0 L Monocytes % (Manual) 14.0 H Basophils % (Manual) Nucleated RBC % Seg Neutrophils # Seg Neutrophils # Man 15.4 H Lymphocytes # (Manual) Monocytes # (Manual) 2.9 H Eosinophils # (Manual) Basophils # (Manual) PT INR APTT Heparin Anti-Xa Level POC ABG pH POC ABG pCO2 POC ABG pO2 Sodium Potassium Chloride 110.6 H Carbon Dioxide BUN Creatinine 1.3 H Glucose 153 H POC Glucose Calcium 8.0 L Phosphorus Magnesium 1.6 L AST Alkaline Phosphatase Troponin T C-Reactive Protein Total Protein Albumin Triglycerides HDL Cholesterol Lipase Vitamin B12 TSH Urine WBC (Auto) Urine Chloride Urine Total Protein Vancomycin Trough Crossmatch 10/18/16 10/18/16 10/18/16 07:30 11:37 17:51 WBC RBC Hgb Hct MCV RDW Plt Count Lymph % (Auto) Wells % (Auto) Wells # Seg Neutrophils % Seg Neuts % (Manual) Lymphocytes % (Manual) Monocytes % (Manual) Basophils % (Manual) Nucleated RBC % Seg Neutrophils # Seg Neutrophils # Man Lymphocytes # (Manual) Monocytes # (Manual) Eosinophils # (Manual) Basophils # (Manual) PT INR APTT Heparin Anti-Xa Level POC ABG pH POC ABG pCO2 POC ABG pO2 Sodium Potassium Chloride Carbon Dioxide BUN Creatinine Glucose POC Glucose 162 H 156 H 164 H Calcium Phosphorus Magnesium AST Alkaline Phosphatase Troponin T C-Reactive Protein Total Protein Albumin Triglycerides HDL Cholesterol Lipase Vitamin B12 TSH Urine WBC (Auto) Urine Chloride Urine Total Protein Vancomycin Trough Crossmatch 10/18/16 10/19/16 10/19/16 23:44 03:59 05:13 WBC 18.2 H RBC 2.76 L Hgb 9.0 L Hct 27.7 L MCV 100 H RDW Plt Count Lymph % (Auto) Wells % (Auto) Wells # Seg Neutrophils % Seg Neuts % (Manual) 76.0 H Lymphocytes % (Manual) 10.0 L Monocytes % (Manual) Basophils % (Manual) Nucleated RBC % Seg Neutrophils # Seg Neutrophils # Man 13.8 H Lymphocytes # (Manual) Monocytes # (Manual) Eosinophils # (Manual) Basophils # (Manual) PT INR APTT Heparin Anti-Xa Level POC ABG pH POC ABG pCO2 32.2 L POC ABG pO2 128 H Sodium Potassium Chloride Carbon Dioxide BUN Creatinine Glucose POC Glucose 278 H Calcium Phosphorus Magnesium AST Alkaline Phosphatase Troponin T C-Reactive Protein Total Protein Albumin Triglycerides HDL Cholesterol Lipase Vitamin B12 TSH Urine WBC (Auto) Urine Chloride Urine Total Protein Vancomycin Trough Crossmatch 10/19/16 10/19/16 10/19/16 06:01 06:30 12:20 WBC RBC Hgb Hct MCV RDW Plt Count Lymph % (Auto) Wells % (Auto) Wells # Seg Neutrophils % Seg Neuts % (Manual) Lymphocytes % (Manual) Monocytes % (Manual) Basophils % (Manual) Nucleated RBC % Seg Neutrophils # Seg Neutrophils # Man Lymphocytes # (Manual) Monocytes # (Manual) Eosinophils # (Manual) Basophils # (Manual) PT INR APTT Heparin Anti-Xa Level POC ABG pH POC ABG pCO2 POC ABG pO2 Sodium Potassium Chloride Carbon Dioxide 18 L BUN Creatinine 1.3 H Glucose 262 H POC Glucose 261 H 349 H Calcium 7.7 L Phosphorus 4.8 H D Magnesium AST Alkaline Phosphatase Troponin T C-Reactive Protein Total Protein Albumin Triglycerides HDL Cholesterol Lipase Vitamin B12 TSH Urine WBC (Auto) Urine Chloride Urine Total Protein Vancomycin Trough Crossmatch 10/19/16 10/20/16 10/20/16 16:48 00:17 05:20 WBC 22.5 H RBC 2.80 L Hgb 8.9 L Hct 28.3 L MCV 101 H RDW Plt Count Lymph % (Auto) Wells % (Auto) Wells # Seg Neutrophils % Seg Neuts % (Manual) Lymphocytes % (Manual) 10.0 L Monocytes % (Manual) Basophils % (Manual) Nucleated RBC % Seg Neutrophils # Seg Neutrophils # Man 13.3 H Lymphocytes # (Manual) Monocytes # (Manual) 1.1 H Eosinophils # (Manual) 0.7 H Basophils # (Manual) PT INR APTT Heparin Anti-Xa Level POC ABG pH POC ABG pCO2 POC ABG pO2 Sodium Potassium Chloride Carbon Dioxide BUN Creatinine Glucose POC Glucose 248 H 346 H Calcium Phosphorus Magnesium AST Alkaline Phosphatase Troponin T C-Reactive Protein Total Protein Albumin Triglycerides HDL Cholesterol Lipase Vitamin B12 TSH Urine WBC (Auto) Urine Chloride Urine Total Protein Vancomycin Trough Crossmatch 10/20/16 10/20/16 10/20/16 05:20 05:20 06:05 WBC RBC Hgb Hct MCV RDW Plt Count Lymph % (Auto) Wells % (Auto) Wells # Seg Neutrophils % Seg Neuts % (Manual) Lymphocytes % (Manual) Monocytes % (Manual) Basophils % (Manual) Nucleated RBC % Seg Neutrophils # Seg Neutrophils # Man Lymphocytes # (Manual) Monocytes # (Manual) Eosinophils # (Manual) Basophils # (Manual) PT INR APTT Heparin Anti-Xa Level 0.20 L POC ABG pH POC ABG pCO2 POC ABG pO2 Sodium Potassium Chloride Carbon Dioxide BUN 20 H Creatinine Glucose 374 H POC Glucose 337 H Calcium 8.3 L Phosphorus Magnesium AST Alkaline Phosphatase Troponin T C-Reactive Protein Total Protein Albumin Triglycerides HDL Cholesterol Lipase Vitamin B12 TSH Urine WBC (Auto) Urine Chloride Urine Total Protein Vancomycin Trough Crossmatch 10/20/16 10/20/16 10/20/16 11:49 13:59 17:56 WBC RBC Hgb Hct MCV RDW Plt Count Lymph % (Auto) Wells % (Auto) Wells # Seg Neutrophils % Seg Neuts % (Manual) Lymphocytes % (Manual) Monocytes % (Manual) Basophils % (Manual) Nucleated RBC % Seg Neutrophils # Seg Neutrophils # Man Lymphocytes # (Manual) Monocytes # (Manual) Eosinophils # (Manual) Basophils # (Manual) PT INR APTT Heparin Anti-Xa Level 2.00 H POC ABG pH POC ABG pCO2 POC ABG pO2 Sodium Potassium Chloride Carbon Dioxide BUN Creatinine Glucose POC Glucose 305 H 362 H Calcium Phosphorus Magnesium AST Alkaline Phosphatase Troponin T C-Reactive Protein Total Protein Albumin Triglycerides HDL Cholesterol Lipase Vitamin B12 TSH Urine WBC (Auto) Urine Chloride Urine Total Protein Vancomycin Trough Crossmatch 10/20/16 10/21/16 10/21/16 23:52 05:00 05:49 WBC 22.9 H RBC 2.49 L Hgb 7.7 L Hct 25.6 L MCV 103 H RDW Plt Count Lymph % (Auto) Wells % (Auto) Wells # Seg Neutrophils % Seg Neuts % (Manual) 94.0 H Lymphocytes % (Manual) 1.0 L Monocytes % (Manual) Basophils % (Manual) Nucleated RBC % Seg Neutrophils # Seg Neutrophils # Man 21.5 H Lymphocytes # (Manual) 0.2 L Monocytes # (Manual) 1.1 H Eosinophils # (Manual) Basophils # (Manual) PT INR APTT Heparin Anti-Xa Level POC ABG pH POC ABG pCO2 POC ABG pO2 Sodium Potassium Chloride Carbon Dioxide BUN Creatinine Glucose POC Glucose 252 H 180 H Calcium Phosphorus Magnesium AST Alkaline Phosphatase Troponin T C-Reactive Protein Total Protein Albumin Triglycerides HDL Cholesterol Lipase Vitamin B12 TSH Urine WBC (Auto) Urine Chloride Urine Total Protein Vancomycin Trough Crossmatch 10/21/16 10/21/16 10/21/16 11:47 11:49 14:10 WBC RBC Hgb Hct MCV RDW Plt Count Lymph % (Auto) Wells % (Auto) Wells # Seg Neutrophils % Seg Neuts % (Manual) Lymphocytes % (Manual) Monocytes % (Manual) Basophils % (Manual) Nucleated RBC % Seg Neutrophils # Seg Neutrophils # Man Lymphocytes # (Manual) Monocytes # (Manual) Eosinophils # (Manual) Basophils # (Manual) PT INR APTT Heparin Anti-Xa Level POC ABG pH POC ABG pCO2 POC ABG pO2 Sodium Potassium Chloride Carbon Dioxide BUN Creatinine Glucose POC Glucose 50 L 56 L 140 H Calcium Phosphorus Magnesium AST Alkaline Phosphatase Troponin T C-Reactive Protein Total Protein Albumin Triglycerides HDL Cholesterol Lipase Vitamin B12 TSH Urine WBC (Auto) Urine Chloride Urine Total Protein Vancomycin Trough Crossmatch 10/21/16 10/21/16 10/22/16 18:24 Unknown 00:07 WBC RBC Hgb Hct MCV RDW Plt Count Lymph % (Auto) Wells % (Auto) Wells # Seg Neutrophils % Seg Neuts % (Manual) Lymphocytes % (Manual) Monocytes % (Manual) Basophils % (Manual) Nucleated RBC % Seg Neutrophils # Seg Neutrophils # Man Lymphocytes # (Manual) Monocytes # (Manual) Eosinophils # (Manual) Basophils # (Manual) PT INR APTT Heparin Anti-Xa Level POC ABG pH POC ABG pCO2 POC ABG pO2 Sodium 150 H Potassium 3.1 L Chloride 112.4 H Carbon Dioxide BUN 25 H Creatinine 1.4 H Glucose POC Glucose 175 H 218 H Calcium 8.0 L Phosphorus Magnesium AST Alkaline Phosphatase Troponin T C-Reactive Protein Total Protein Albumin Triglycerides HDL Cholesterol Lipase Vitamin B12 TSH Urine WBC (Auto) Urine Chloride Urine Total Protein Vancomycin Trough Crossmatch 10/22/16 10/22/16 10/22/16 04:20 04:20 10:25 WBC 20.8 H RBC 2.37 L Hgb 7.5 L Hct 23.9 L MCV 101 H RDW Plt Count Lymph % (Auto) Wells % (Auto) Wells # Seg Neutrophils % Seg Neuts % (Manual) 89.0 H Lymphocytes % (Manual) 7.0 L Monocytes % (Manual) Basophils % (Manual) Nucleated RBC % Seg Neutrophils # Seg Neutrophils # Man 18.5 H Lymphocytes # (Manual) Monocytes # (Manual) Eosinophils # (Manual) Basophils # (Manual) 0.2 H PT INR APTT Heparin Anti-Xa Level POC ABG pH POC ABG pCO2 POC ABG pO2 Sodium 148 H Potassium 2.9 L* Chloride 109.4 H Carbon Dioxide BUN 26 H Creatinine Glucose 140 H POC Glucose Calcium 7.5 L Phosphorus Magnesium AST Alkaline Phosphatase Troponin T C-Reactive Protein Total Protein Albumin Triglycerides HDL Cholesterol Lipase Vitamin B12 976.8 H TSH Urine WBC (Auto) Urine Chloride Urine Total Protein Vancomycin Trough Crossmatch 10/22/16 10/22/16 10/22/16 10:25 14:50 18:16 WBC RBC Hgb Hct MCV RDW Plt Count Lymph % (Auto) Wells % (Auto) Wells # Seg Neutrophils % Seg Neuts % (Manual) Lymphocytes % (Manual) Monocytes % (Manual) Basophils % (Manual) Nucleated RBC % Seg Neutrophils # Seg Neutrophils # Man Lymphocytes # (Manual) Monocytes # (Manual) Eosinophils # (Manual) Basophils # (Manual) PT INR APTT Heparin Anti-Xa Level POC ABG pH POC ABG pCO2 POC ABG pO2 Sodium Potassium Chloride Carbon Dioxide BUN Creatinine Glucose POC Glucose 193 H Calcium Phosphorus Magnesium AST Alkaline Phosphatase Troponin T C-Reactive Protein Total Protein Albumin Triglycerides HDL Cholesterol Lipase Vitamin B12 TSH 0.143 L 0.162 L Urine WBC (Auto) Urine Chloride Urine Total Protein Vancomycin Trough Crossmatch 10/22/16 10/22/16 10/22/16 20:00 20:00 20:00 WBC 24.1 H RBC 2.58 L Hgb 8.2 L Hct 26.4 L MCV 102 H RDW Plt Count Lymph % (Auto) Wells % (Auto) Wells # Seg Neutrophils % Seg Neuts % (Manual) 74.0 H Lymphocytes % (Manual) 7.0 L Monocytes % (Manual) Basophils % (Manual) Nucleated RBC % Seg Neutrophils # Seg Neutrophils # Man 17.8 H Lymphocytes # (Manual) Monocytes # (Manual) Eosinophils # (Manual) Basophils # (Manual) PT INR APTT Heparin Anti-Xa Level 1.92 H POC ABG pH POC ABG pCO2 POC ABG pO2 Sodium Potassium Chloride Carbon Dioxide BUN Creatinine Glucose POC Glucose Calcium Phosphorus Magnesium AST Alkaline Phosphatase Troponin T C-Reactive Protein Total Protein Albumin Triglycerides HDL Cholesterol Lipase Vitamin B12 TSH Urine WBC (Auto) Urine Chloride Urine Total Protein Vancomycin Trough Crossmatch See Detail 10/23/16 10/23/16 10/23/16 00:21 06:09 12:07 WBC RBC Hgb Hct MCV RDW Plt Count Lymph % (Auto) Wells % (Auto) [place] # Seg Neutrophils % Seg Neuts % (Manual) Lymphocytes % (Manual) Monocytes % (Manual) Basophils % (Manual) Nucleated RBC % Seg Neutrophils # Seg Neutrophils # Man Lymphocytes # (Manual) Monocytes # (Manual) Eosinophils # (Manual) Basophils # (Manual) PT INR APTT Heparin Anti-Xa Level POC ABG pH POC ABG pCO2 POC ABG pO2 Sodium Potassium Chloride Carbon Dioxide BUN Creatinine Glucose POC Glucose 283 H 241 H 340 H Calcium Phosphorus Magnesium AST Alkaline Phosphatase Troponin T C-Reactive Protein Total Protein Albumin Triglycerides HDL Cholesterol Lipase Vitamin B12 TSH Urine WBC (Auto) Urine Chloride Urine Total Protein Vancomycin Trough Crossmatch 10/23/16 10/23/16 10/23/16 14:01 16:00 17:59 WBC RBC Hgb Hct MCV RDW Plt Count Lymph % (Auto) Wells % (Auto) Wells # Seg Neutrophils % Seg Neuts % (Manual) Lymphocytes % (Manual) Monocytes % (Manual) Basophils % (Manual) Nucleated RBC % Seg Neutrophils # Seg Neutrophils # Man Lymphocytes # (Manual) Monocytes # (Manual) Eosinophils # (Manual) Basophils # (Manual) PT INR APTT Heparin Anti-Xa Level 0.19 L POC ABG pH POC ABG pCO2 32.4 L POC ABG pO2 Sodium Potassium Chloride Carbon Dioxide BUN Creatinine Glucose POC Glucose 245 H Calcium Phosphorus Magnesium AST Alkaline Phosphatase Troponin T C-Reactive Protein Total Protein Albumin Triglycerides HDL Cholesterol Lipase Vitamin B12 TSH Urine WBC (Auto) Urine Chloride Urine Total Protein Vancomycin Trough Crossmatch 10/23/16 10/23/16 10/23/16 22:55 Unknown Unknown WBC 22.6 H RBC 3.26 L Hgb Hct MCV RDW 17.1 H Plt Count Lymph % (Auto) Wells % (Auto) Wells # Seg Neutrophils % Seg Neuts % (Manual) Lymphocytes % (Manual) 11.0 L Monocytes % (Manual) Basophils % (Manual) Nucleated RBC % Seg Neutrophils # Seg Neutrophils # Man 14.0 H Lymphocytes # (Manual) Monocytes # (Manual) Eosinophils # (Manual) Basophils # (Manual) PT INR APTT Heparin Anti-Xa Level 0.17 L 0.15 L POC ABG pH POC ABG pCO2 POC ABG pO2 Sodium Potassium Chloride Carbon Dioxide BUN Creatinine Glucose POC Glucose Calcium Phosphorus Magnesium AST Alkaline Phosphatase Troponin T C-Reactive Protein Total Protein Albumin Triglycerides HDL Cholesterol Lipase Vitamin B12 TSH Urine WBC (Auto) Urine Chloride Urine Total Protein Vancomycin Trough Crossmatch 10/23/16 10/24/16 10/24/16 Unknown 00:05 05:30 WBC RBC Hgb Hct MCV RDW Plt Count Lymph % (Auto) Wells % (Auto) Wells # Seg Neutrophils % Seg Neuts % (Manual) Lymphocytes % (Manual) Monocytes % (Manual) Basophils % (Manual) Nucleated RBC % Seg Neutrophils # Seg Neutrophils # Man Lymphocytes # (Manual) Monocytes # (Manual) Eosinophils # (Manual) Basophils # (Manual) PT INR APTT Heparin Anti-Xa Level 0.13 L POC ABG pH POC ABG pCO2 POC ABG pO2 Sodium Potassium Chloride 111.2 H Carbon Dioxide 20 L BUN 25 H Creatinine Glucose 227 H POC Glucose 118 H Calcium 7.1 L Phosphorus Magnesium AST Alkaline Phosphatase Troponin T C-Reactive Protein Total Protein Albumin Triglycerides HDL Cholesterol Lipase Vitamin B12 TSH Urine WBC (Auto) Urine Chloride Urine Total Protein Vancomycin Trough Crossmatch 10/24/16 10/24/16 10/24/16 11:00 11:00 12:06 WBC 17.6 H RBC 2.92 L Hgb 9.2 L Hct 28.3 L MCV RDW 16.9 H Plt Count Lymph % (Auto) Wells % (Auto) Wells # Seg Neutrophils % Seg Neuts % (Manual) Lymphocytes % (Manual) Monocytes % (Manual) Basophils % (Manual) Nucleated RBC % Seg Neutrophils # Seg Neutrophils # Man Lymphocytes # (Manual) Monocytes # (Manual) Eosinophils # (Manual) Basophils # (Manual) PT INR APTT Heparin Anti-Xa Level 0.27 L POC ABG pH POC ABG pCO2 POC ABG pO2 Sodium Potassium Chloride Carbon Dioxide BUN Creatinine Glucose POC Glucose 166 H Calcium Phosphorus Magnesium AST Alkaline Phosphatase Troponin T C-Reactive Protein Total Protein Albumin Triglycerides HDL Cholesterol Lipase Vitamin B12 TSH Urine WBC (Auto) Urine Chloride Urine Total Protein Vancomycin Trough Crossmatch 10/24/16 10/25/16 10/25/16 12:27 00:49 03:30 WBC RBC Hgb 8.8 L Hct 28.1 L MCV RDW Plt Count Lymph % (Auto) Wells % (Auto) Wells # Seg Neutrophils % Seg Neuts % (Manual) Lymphocytes % (Manual) Monocytes % (Manual) Basophils % (Manual) Nucleated RBC % Seg Neutrophils # Seg Neutrophils # Man Lymphocytes # (Manual) Monocytes # (Manual) Eosinophils # (Manual) Basophils # (Manual) PT INR APTT Heparin Anti-Xa Level POC ABG pH POC ABG pCO2 33.9 L POC ABG pO2 Sodium Potassium Chloride Carbon Dioxide BUN Creatinine Glucose POC Glucose 121 H Calcium Phosphorus Magnesium AST Alkaline Phosphatase Troponin T C-Reactive Protein Total Protein Albumin Triglycerides HDL Cholesterol Lipase Vitamin B12 TSH Urine WBC (Auto) Urine Chloride Urine Total Protein Vancomycin Trough Crossmatch 10/25/16 10/25/16 10/25/16 09:49 12:10 19:25 WBC 21.1 H RBC 3.02 L Hgb 9.3 L Hct 28.9 L MCV RDW 16.3 H Plt Count Lymph % (Auto) Wells % (Auto) Wells # Seg Neutrophils % Seg Neuts % (Manual) 81.0 H Lymphocytes % (Manual) 9.0 L Monocytes % (Manual) Basophils % (Manual) Nucleated RBC % Seg Neutrophils # Seg Neutrophils # Man 17.1 H Lymphocytes # (Manual) Monocytes # (Manual) Eosinophils # (Manual) Basophils # (Manual) PT INR APTT Heparin Anti-Xa Level POC ABG pH POC ABG pCO2 POC ABG pO2 Sodium Potassium Chloride Carbon Dioxide BUN Creatinine Glucose POC Glucose 158 H 151 H Calcium Phosphorus Magnesium AST Alkaline Phosphatase Troponin T C-Reactive Protein Total Protein Albumin Triglycerides HDL Cholesterol Lipase Vitamin B12 TSH Urine WBC (Auto) Urine Chloride Urine Total Protein Vancomycin Trough Crossmatch 10/26/16 10/26/16 10/26/16 00:20 01:09 05:02 WBC 22.2 H RBC 2.89 L Hgb 8.7 L Hct 27.8 L MCV RDW 16.4 H Plt Count Lymph % (Auto) Wells % (Auto) Wells # Seg Neutrophils % Seg Neuts % (Manual) Lymphocytes % (Manual) Monocytes % (Manual) Basophils % (Manual) Nucleated RBC % Seg Neutrophils # Seg Neutrophils # Man Lymphocytes # (Manual) Monocytes # (Manual) Eosinophils # (Manual) Basophils # (Manual) PT INR APTT Heparin Anti-Xa Level POC ABG pH POC ABG pCO2 POC ABG pO2 Sodium Potassium Chloride Carbon Dioxide BUN Creatinine Glucose POC Glucose 44 L 112 H Calcium Phosphorus Magnesium AST Alkaline Phosphatase Troponin T C-Reactive Protein Total Protein Albumin Triglycerides HDL Cholesterol Lipase Vitamin B12 TSH Urine WBC (Auto) Urine Chloride Urine Total Protein Vancomycin Trough Crossmatch 10/26/16 10/26/16 10/26/16 05:02 12:11 12:14 WBC RBC Hgb Hct MCV RDW Plt Count Lymph % (Auto) Wells % (Auto) Wells # Seg Neutrophils % Seg Neuts % (Manual) Lymphocytes % (Manual) Monocytes % (Manual) Basophils % (Manual) Nucleated RBC % Seg Neutrophils # Seg Neutrophils # Man Lymphocytes # (Manual) Monocytes # (Manual) Eosinophils # (Manual) Basophils # (Manual) PT INR APTT Heparin Anti-Xa Level POC ABG pH POC ABG pCO2 32.0 L POC ABG pO2 33 L Sodium Potassium 3.2 L D Chloride Carbon Dioxide 20 L BUN 24 H Creatinine Glucose 104 H POC Glucose 194 H Calcium 7.7 L Phosphorus Magnesium AST Alkaline Phosphatase Troponin T C-Reactive Protein Total Protein Albumin Triglycerides HDL Cholesterol Lipase Vitamin B12 TSH Urine WBC (Auto) Urine Chloride Urine Total Protein Vancomycin Trough Crossmatch 10/26/16 10/26/16 10/27/16 15:28 17:23 00:04 WBC RBC Hgb Hct MCV RDW Plt Count Lymph % (Auto) Wells % (Auto) Wells # Seg Neutrophils % Seg Neuts % (Manual) Lymphocytes % (Manual) Monocytes % (Manual) Basophils % (Manual) Nucleated RBC % Seg Neutrophils # Seg Neutrophils # Man Lymphocytes # (Manual) Monocytes # (Manual) Eosinophils # (Manual) Basophils # (Manual) PT INR APTT Heparin Anti-Xa Level POC ABG pH POC ABG pCO2 33.7 L POC ABG pO2 Sodium Potassium Chloride Carbon Dioxide BUN Creatinine Glucose POC Glucose 181 H 230 H Calcium Phosphorus Magnesium AST Alkaline Phosphatase Troponin T C-Reactive Protein Total Protein Albumin Triglycerides HDL Cholesterol Lipase Vitamin B12 TSH Urine WBC (Auto) Urine Chloride Urine Total Protein Vancomycin Trough Crossmatch 10/27/16 10/27/16 10/27/16 05:15 05:15 05:38 WBC 25.5 H RBC 3.07 L Hgb 9.4 L Hct 30.1 L MCV 98 H RDW 16.4 H Plt Count 527 H Lymph % (Auto) Wells % (Auto) Wells # Seg Neutrophils % Seg Neuts % (Manual) Lymphocytes % (Manual) Monocytes % (Manual) Basophils % (Manual) Nucleated RBC % Seg Neutrophils # Seg Neutrophils # Man Lymphocytes # (Manual) Monocytes # (Manual) Eosinophils # (Manual) Basophils # (Manual) PT INR APTT Heparin Anti-Xa Level POC ABG pH POC ABG pCO2 POC ABG pO2 Sodium Potassium Chloride Carbon Dioxide 19 L BUN 23 H Creatinine Glucose 160 H POC Glucose 168 H Calcium 8.0 L Phosphorus Magnesium AST Alkaline Phosphatase Troponin T C-Reactive Protein Total Protein Albumin Triglycerides HDL Cholesterol Lipase Vitamin B12 TSH Urine WBC (Auto) Urine Chloride Urine Total Protein Vancomycin Trough Crossmatch 10/27/16 10/27/16 10/27/16 11:59 18:35 23:48 WBC RBC Hgb Hct MCV RDW Plt Count Lymph % (Auto) Wells % (Auto) Wells # Seg Neutrophils % Seg Neuts % (Manual) Lymphocytes % (Manual) Monocytes % (Manual) Basophils % (Manual) Nucleated RBC % Seg Neutrophils # Seg Neutrophils # Man Lymphocytes # (Manual) Monocytes # (Manual) Eosinophils # (Manual) Basophils # (Manual) PT INR APTT Heparin Anti-Xa Level POC ABG pH POC ABG pCO2 POC ABG pO2 Sodium Potassium Chloride Carbon Dioxide BUN Creatinine Glucose POC Glucose 197 H 318 H 316 H Calcium Phosphorus Magnesium AST Alkaline Phosphatase Troponin T C-Reactive Protein Total Protein Albumin Triglycerides HDL Cholesterol Lipase Vitamin B12 TSH Urine WBC (Auto) Urine Chloride Urine Total Protein Vancomycin Trough Crossmatch 10/28/16 10/28/16 10/28/16 03:13 04:10 04:10 WBC 18.8 H RBC 2.64 L Hgb 8.1 L Hct 26.1 L MCV 99 H RDW 16.2 H Plt Count 544 H Lymph % (Auto) Wells % (Auto) Wells # Seg Neutrophils % Seg Neuts % (Manual) Lymphocytes % (Manual) Monocytes % (Manual) Basophils % (Manual) Nucleated RBC % Seg Neutrophils # Seg Neutrophils # Man Lymphocytes # (Manual) Monocytes # (Manual) Eosinophils # (Manual) Basophils # (Manual) PT INR APTT Heparin Anti-Xa Level POC ABG pH POC ABG pCO2 POC ABG pO2 Sodium Potassium Chloride Carbon Dioxide 21 L BUN 24 H Creatinine Glucose 302 H POC Glucose 304 H Calcium 7.7 L Phosphorus Magnesium AST Alkaline Phosphatase Troponin T C-Reactive Protein Total Protein Albumin Triglycerides HDL Cholesterol Lipase Vitamin B12 TSH Urine WBC (Auto) Urine Chloride Urine Total Protein Vancomycin Trough Crossmatch 10/28/16 10/28/16 10/28/16 04:10 12:36 18:27 WBC RBC Hgb Hct MCV RDW Plt Count Lymph % (Auto) Wells % (Auto) Wells # Seg Neutrophils % Seg Neuts % (Manual) Lymphocytes % (Manual) Monocytes % (Manual) Basophils % (Manual) Nucleated RBC % Seg Neutrophils # Seg Neutrophils # Man Lymphocytes # (Manual) Monocytes # (Manual) Eosinophils # (Manual) Basophils # (Manual) PT INR APTT Heparin Anti-Xa Level 0.20 L POC ABG pH POC ABG pCO2 POC ABG pO2 Sodium Potassium Chloride Carbon Dioxide BUN Creatinine Glucose POC Glucose 205 H 339 H Calcium Phosphorus Magnesium AST Alkaline Phosphatase Troponin T C-Reactive Protein Total Protein Albumin Triglycerides HDL Cholesterol Lipase Vitamin B12 TSH Urine WBC (Auto) Urine Chloride Urine Total Protein Vancomycin Trough Crossmatch 10/29/16 10/29/16 10/29/16 01:05 06:19 09:30 WBC 20.3 H RBC 2.80 L Hgb 8.5 L Hct 26.7 L MCV RDW 15.4 H Plt Count 571 H Lymph % (Auto) Wells % (Auto) Wells # Seg Neutrophils % Seg Neuts % (Manual) 75.0 H Lymphocytes % (Manual) 4.0 L Monocytes % (Manual) Basophils % (Manual) Nucleated RBC % Seg Neutrophils # Seg Neutrophils # Man 15.2 H Lymphocytes # (Manual) 0.8 L Monocytes # (Manual) Eosinophils # (Manual) Basophils # (Manual) PT INR APTT Heparin Anti-Xa Level POC ABG pH POC ABG pCO2 POC ABG pO2 Sodium Potassium Chloride Carbon Dioxide BUN Creatinine Glucose POC Glucose 275 H 179 H Calcium Phosphorus Magnesium AST Alkaline Phosphatase Troponin T C-Reactive Protein Total Protein Albumin Triglycerides HDL Cholesterol Lipase Vitamin B12 TSH Urine WBC (Auto) Urine Chloride Urine Total Protein Vancomycin Trough Crossmatch 10/29/16 10/29/16 10/29/16 11:46 15:18 17:55 WBC RBC Hgb Hct MCV RDW Plt Count Lymph % (Auto) Wells % (Auto) Wells # Seg Neutrophils % Seg Neuts % (Manual) Lymphocytes % (Manual) Monocytes % (Manual) Basophils % (Manual) Nucleated RBC % Seg Neutrophils # Seg Neutrophils # Man Lymphocytes # (Manual) Monocytes # (Manual) Eosinophils # (Manual) Basophils # (Manual) PT INR APTT Heparin Anti-Xa Level 1.15 H POC ABG pH POC ABG pCO2 POC ABG pO2 Sodium Potassium Chloride Carbon Dioxide BUN Creatinine Glucose POC Glucose 122 H 255 H Calcium Phosphorus Magnesium AST Alkaline Phosphatase Troponin T C-Reactive Protein Total Protein Albumin Triglycerides HDL Cholesterol Lipase Vitamin B12 TSH Urine WBC (Auto) Urine Chloride Urine Total Protein Vancomycin Trough Crossmatch 10/30/16 10/30/16 10/30/16 00:10 05:30 05:30 WBC 19.8 H RBC 2.51 L Hgb 7.7 L Hct 24.1 L MCV RDW 15.5 H Plt Count 534 H Lymph % (Auto) Wells % (Auto) Wells # Seg Neutrophils % Seg Neuts % (Manual) Lymphocytes % (Manual) Monocytes % (Manual) Basophils % (Manual) Nucleated RBC % Seg Neutrophils # Seg Neutrophils # Man Lymphocytes # (Manual) Monocytes # (Manual) Eosinophils # (Manual) Basophils # (Manual) PT INR APTT Heparin Anti-Xa Level POC ABG pH POC ABG pCO2 POC ABG pO2 Sodium Potassium Chloride Carbon Dioxide BUN Creatinine Glucose 211 H POC Glucose 202 H Calcium 7.4 L Phosphorus Magnesium AST Alkaline Phosphatase Troponin T C-Reactive Protein Total Protein Albumin Triglycerides HDL Cholesterol Lipase Vitamin B12 TSH Urine WBC (Auto) Urine Chloride Urine Total Protein Vancomycin Trough Crossmatch 10/30/16 10/30/16 10/30/16 06:32 12:51 17:47 WBC RBC Hgb Hct MCV RDW Plt Count Lymph % (Auto) Wells % (Auto) Wells # Seg Neutrophils % Seg Neuts % (Manual) Lymphocytes % (Manual) Monocytes % (Manual) Basophils % (Manual) Nucleated RBC % Seg Neutrophils # Seg Neutrophils # Man Lymphocytes # (Manual) Monocytes # (Manual) Eosinophils # (Manual) Basophils # (Manual) PT INR APTT Heparin Anti-Xa Level POC ABG pH POC ABG pCO2 POC ABG pO2 Sodium Potassium Chloride Carbon Dioxide BUN Creatinine Glucose POC Glucose 207 H 218 H 169 H Calcium Phosphorus Magnesium AST Alkaline Phosphatase Troponin T C-Reactive Protein Total Protein Albumin Triglycerides HDL Cholesterol Lipase Vitamin B12 TSH Urine WBC (Auto) Urine Chloride Urine Total Protein Vancomycin Trough Crossmatch 10/30/16 10/31/16 10/31/16 23:59 05:25 11:21 WBC RBC Hgb Hct MCV RDW Plt Count Lymph % (Auto) Wells % (Auto) Wells # Seg Neutrophils % Seg Neuts % (Manual) Lymphocytes % (Manual) Monocytes % (Manual) Basophils % (Manual) Nucleated RBC % Seg Neutrophils # Seg Neutrophils # Man Lymphocytes # (Manual) Monocytes # (Manual) Eosinophils # (Manual) Basophils # (Manual) PT INR APTT Heparin Anti-Xa Level POC ABG pH POC ABG pCO2 POC ABG pO2 Sodium Potassium Chloride Carbon Dioxide BUN Creatinine Glucose POC Glucose 138 H 127 H 132 H Calcium Phosphorus Magnesium AST Alkaline Phosphatase Troponin T C-Reactive Protein Total Protein Albumin Triglycerides HDL Cholesterol Lipase Vitamin B12 TSH Urine WBC (Auto) Urine Chloride Urine Total Protein Vancomycin Trough Crossmatch 10/31/16 10/31/16 11/01/16 17:07 23:54 05:47 WBC RBC Hgb Hct MCV RDW Plt Count Lymph % (Auto) Wells % (Auto) Wells # Seg Neutrophils % Seg Neuts % (Manual) Lymphocytes % (Manual) Monocytes % (Manual) Basophils % (Manual) Nucleated RBC % Seg Neutrophils # Seg Neutrophils # Man Lymphocytes # (Manual) Monocytes # (Manual) Eosinophils # (Manual) Basophils # (Manual) PT INR APTT Heparin Anti-Xa Level POC ABG pH POC ABG pCO2 POC ABG pO2 Sodium Potassium Chloride Carbon Dioxide BUN Creatinine Glucose POC Glucose 138 H 153 H 150 H Calcium Phosphorus Magnesium AST Alkaline Phosphatase Troponin T C-Reactive Protein Total Protein Albumin Triglycerides HDL Cholesterol Lipase Vitamin B12 TSH Urine WBC (Auto) Urine Chloride Urine Total Protein Vancomycin Trough Crossmatch 11/01/16 11/01/16 11/01/16 06:33 06:33 12:16 WBC 19.2 H RBC 2.51 L Hgb 7.9 L Hct 24.8 L MCV 99 H D RDW 16.1 H Plt Count 569 H Lymph % (Auto) Wells % (Auto) Wells # Seg Neutrophils % Seg Neuts % (Manual) Lymphocytes % (Manual) Monocytes % (Manual) Basophils % (Manual) Nucleated RBC % Seg Neutrophils # Seg Neutrophils # Man Lymphocytes # (Manual) Monocytes # (Manual) Eosinophils # (Manual) Basophils # (Manual) PT INR APTT Heparin Anti-Xa Level POC ABG pH POC ABG pCO2 POC ABG pO2 Sodium Potassium 3.5 L Chloride Carbon Dioxide 21 L BUN Creatinine Glucose 137 H POC Glucose 125 H Calcium 7.7 L Phosphorus Magnesium AST Alkaline Phosphatase 148 H Troponin T C-Reactive Protein Total Protein 6.2 L Albumin 2.0 L Triglycerides HDL Cholesterol Lipase Vitamin B12 TSH Urine WBC (Auto) Urine Chloride Urine Total Protein Vancomycin Trough Crossmatch 11/01/16 11/02/16 11/02/16 17:37 00:05 04:15 WBC RBC Hgb Hct MCV RDW Plt Count Lymph % (Auto) Wells % (Auto) [place] # Seg Neutrophils % Seg Neuts % (Manual) Lymphocytes % (Manual) Monocytes % (Manual) Basophils % (Manual) Nucleated RBC % Seg Neutrophils # Seg Neutrophils # Man Lymphocytes # (Manual) Monocytes # (Manual) Eosinophils # (Manual) Basophils # (Manual) PT INR APTT Heparin Anti-Xa Level < 0.10 L POC ABG pH POC ABG pCO2 POC ABG pO2 Sodium Potassium 3.2 L Chloride Carbon Dioxide BUN 6 L Creatinine Glucose 135 H POC Glucose 164 H Calcium 7.5 L Phosphorus Magnesium AST Alkaline Phosphatase 132 H Troponin T C-Reactive Protein Total Protein 6.2 L Albumin 1.8 L Triglycerides HDL Cholesterol Lipase Vitamin B12 TSH Urine WBC (Auto) Urine Chloride Urine Total Protein Vancomycin Trough Crossmatch 11/02/16 11/02/16 11/02/16 04:15 05:54 12:15 WBC 17.7 H RBC 2.43 L Hgb 7.6 L Hct 23.5 L MCV RDW 15.9 H Plt Count 502 H Lymph % (Auto) Wells % (Auto) Wells # Seg Neutrophils % Seg Neuts % (Manual) 84.0 H Lymphocytes % (Manual) 11.0 L Monocytes % (Manual) Basophils % (Manual) Nucleated RBC % 1.0 H Seg Neutrophils # Seg Neutrophils # Man 14.9 H Lymphocytes # (Manual) Monocytes # (Manual) Eosinophils # (Manual) Basophils # (Manual) PT INR APTT Heparin Anti-Xa Level POC ABG pH POC ABG pCO2 POC ABG pO2 Sodium Potassium Chloride Carbon Dioxide BUN Creatinine Glucose POC Glucose 152 H 137 H Calcium Phosphorus Magnesium AST Alkaline Phosphatase Troponin T C-Reactive Protein Total Protein Albumin Triglycerides HDL Cholesterol Lipase Vitamin B12 TSH Urine WBC (Auto) Urine Chloride Urine Total Protein Vancomycin Trough Crossmatch 11/02/16 11/03/16 11/03/16 17:00 00:05 00:05 WBC RBC Hgb Hct MCV RDW Plt Count Lymph % (Auto) Wells % (Auto) Wells # Seg Neutrophils % Seg Neuts % (Manual) Lymphocytes % (Manual) Monocytes % (Manual) Basophils % (Manual) Nucleated RBC % Seg Neutrophils # Seg Neutrophils # Man Lymphocytes # (Manual) Monocytes # (Manual) Eosinophils # (Manual) Basophils # (Manual) PT INR APTT Heparin Anti-Xa Level POC ABG pH POC ABG pCO2 POC ABG pO2 Sodium Potassium Chloride Carbon Dioxide 20 L BUN 5 L Creatinine Glucose 139 H POC Glucose 161 H Calcium 6.7 L Phosphorus Magnesium 1.2 L AST Alkaline Phosphatase Troponin T C-Reactive Protein Total Protein Albumin Triglycerides HDL Cholesterol Lipase Vitamin B12 TSH Urine WBC (Auto) Urine Chloride Urine Total Protein Vancomycin Trough Crossmatch 11/03/16 11/03/16 11/03/16 00:05 02:05 04:23 WBC 15.9 H 14.0 H RBC 1.93 L 2.38 L Hgb 5.9 L* 7.3 L Hct 18.9 L* 23.1 L MCV 98 H RDW 15.9 H 15.9 H Plt Count Lymph % (Auto) Wells % (Auto) Wells # Seg Neutrophils % Seg Neuts % (Manual) 85.0 H Lymphocytes % (Manual) 4.0 L Monocytes % (Manual) Basophils % (Manual) Nucleated RBC % Seg Neutrophils # Seg Neutrophils # Man 13.5 H Lymphocytes # (Manual) 0.6 L Monocytes # (Manual) Eosinophils # (Manual) Basophils # (Manual) PT INR APTT Heparin Anti-Xa Level POC ABG pH POC ABG pCO2 POC ABG pO2 Sodium Potassium Chloride Carbon Dioxide BUN 5 L Creatinine Glucose 127 H POC Glucose Calcium 7.2 L Phosphorus Magnesium AST Alkaline Phosphatase Troponin T C-Reactive Protein Total Protein 5.8 L Albumin 1.5 L Triglycerides HDL Cholesterol Lipase Vitamin B12 TSH Urine WBC (Auto) Urine Chloride Urine Total Protein Vancomycin Trough Crossmatch 11/03/16 11/03/16 11/03/16 09:14 09:27 11:54 WBC RBC Hgb Hct MCV RDW Plt Count Lymph % (Auto) Wells % (Auto) Wells # Seg Neutrophils % Seg Neuts % (Manual) Lymphocytes % (Manual) Monocytes % (Manual) Basophils % (Manual) Nucleated RBC % Seg Neutrophils # Seg Neutrophils # Man Lymphocytes # (Manual) Monocytes # (Manual) Eosinophils # (Manual) Basophils # (Manual) PT INR APTT Heparin Anti-Xa Level 0.11 L POC ABG pH POC ABG pCO2 POC ABG pO2 Sodium Potassium Chloride Carbon Dioxide BUN 5 L Creatinine Glucose 111 H POC Glucose 139 H Calcium 6.7 L Phosphorus Magnesium AST Alkaline Phosphatase Troponin T C-Reactive Protein Total Protein Albumin Triglycerides HDL Cholesterol Lipase Vitamin B12 TSH Urine WBC (Auto) Urine Chloride Urine Total Protein Vancomycin Trough Crossmatch 11/03/16 11/03/16 11/03/16 16:26 18:01 18:01 WBC RBC Hgb Hct MCV RDW Plt Count Lymph % (Auto) Wells % (Auto) Wells # Seg Neutrophils % Seg Neuts % (Manual) Lymphocytes % (Manual) Monocytes % (Manual) Basophils % (Manual) Nucleated RBC % Seg Neutrophils # Seg Neutrophils # Man Lymphocytes # (Manual) Monocytes # (Manual) Eosinophils # (Manual) Basophils # (Manual) PT INR APTT Heparin Anti-Xa Level 2.00 H POC ABG pH POC ABG pCO2 POC ABG pO2 Sodium Potassium Chloride Carbon Dioxide BUN Creatinine Glucose POC Glucose 142 H Calcium Phosphorus Magnesium AST Alkaline Phosphatase Troponin T C-Reactive Protein Total Protein Albumin Triglycerides HDL Cholesterol Lipase Vitamin B12 TSH Urine WBC (Auto) Urine Chloride Urine Total Protein Vancomycin Trough Crossmatch See Detail 11/04/16 11/04/16 11/04/16 02:15 02:15 06:35 WBC 11.8 H RBC 2.39 L Hgb 7.4 L Hct 23.1 L MCV RDW 15.9 H Plt Count Lymph % (Auto) Wells % (Auto) Wells # Seg Neutrophils % Seg Neuts % (Manual) 76.0 H Lymphocytes % (Manual) 12.0 L Monocytes % (Manual) 9.0 H Basophils % (Manual) Nucleated RBC % Seg Neutrophils # Seg Neutrophils # Man 9.0 H Lymphocytes # (Manual) Monocytes # (Manual) 1.1 H Eosinophils # (Manual) Basophils # (Manual) PT INR APTT Heparin Anti-Xa Level < 0.10 L POC ABG pH POC ABG pCO2 POC ABG pO2 Sodium Potassium Chloride Carbon Dioxide 21 L BUN 5 L Creatinine Glucose 112 H POC Glucose Calcium 6.8 L Phosphorus Magnesium AST Alkaline Phosphatase Troponin T C-Reactive Protein Total Protein 5.7 L Albumin 1.7 L Triglycerides HDL Cholesterol Lipase Vitamin B12 TSH Urine WBC (Auto) Urine Chloride Urine Total Protein Vancomycin Trough Crossmatch 11/04/16 11/04/16 11/04/16 10:51 12:58 15:04 WBC RBC Hgb Hct MCV RDW Plt Count Lymph % (Auto) Wells % (Auto) [place] # Seg Neutrophils % Seg Neuts % (Manual) Lymphocytes % (Manual) Monocytes % (Manual) Basophils % (Manual) Nucleated RBC % Seg Neutrophils # Seg Neutrophils # Man Lymphocytes # (Manual) Monocytes # (Manual) Eosinophils # (Manual) Basophils # (Manual) PT INR APTT Heparin Anti-Xa Level 1.05 H POC ABG pH POC ABG pCO2 33.7 L POC ABG pO2 60 L Sodium Potassium Chloride Carbon Dioxide BUN Creatinine Glucose POC Glucose 118 H Calcium Phosphorus Magnesium AST Alkaline Phosphatase Troponin T C-Reactive Protein Total Protein Albumin Triglycerides HDL Cholesterol Lipase Vitamin B12 TSH Urine WBC (Auto) Urine Chloride Urine Total Protein Vancomycin Trough Crossmatch 11/04/16 11/04/16 11/05/16 17:20 20:31 02:30 WBC RBC Hgb Hct MCV RDW Plt Count Lymph % (Auto) Wells % (Auto) Wells # Seg Neutrophils % Seg Neuts % (Manual) Lymphocytes % (Manual) Monocytes % (Manual) Basophils % (Manual) Nucleated RBC % Seg Neutrophils # Seg Neutrophils # Man Lymphocytes # (Manual) Monocytes # (Manual) Eosinophils # (Manual) Basophils # (Manual) PT INR APTT Heparin Anti-Xa Level POC ABG pH POC ABG pCO2 POC ABG pO2 Sodium Potassium 3.5 L Chloride Carbon Dioxide 18 L BUN 5 L Creatinine 0.6 L Glucose 110 H POC Glucose 228 H 169 H Calcium 7.1 L Phosphorus Magnesium AST Alkaline Phosphatase Troponin T C-Reactive Protein Total Protein Albumin 1.9 L Triglycerides HDL Cholesterol Lipase Vitamin B12 TSH Urine WBC (Auto) Urine Chloride Urine Total Protein Vancomycin Trough Crossmatch 11/05/16 11/05/16 11/05/16 02:30 17:52 21:07 WBC 14.1 H RBC Hgb Hct MCV RDW 16.7 H Plt Count Lymph % (Auto) [place] % (Auto) [place] # Seg Neutrophils % Seg Neuts % (Manual) 80.0 H Lymphocytes % (Manual) 6.0 L Monocytes % (Manual) 8.0 H Basophils % (Manual) Nucleated RBC % Seg Neutrophils # Seg Neutrophils # Man 11.3 H Lymphocytes # (Manual) 0.8 L Monocytes # (Manual) 1.1 H Eosinophils # (Manual) Basophils # (Manual) PT INR APTT Heparin Anti-Xa Level < 0.10 L POC ABG pH POC ABG pCO2 POC ABG pO2 Sodium Potassium Chloride Carbon Dioxide BUN Creatinine Glucose POC Glucose 174 H Calcium Phosphorus Magnesium AST Alkaline Phosphatase Troponin T C-Reactive Protein Total Protein Albumin Triglycerides HDL Cholesterol Lipase Vitamin B12 TSH Urine WBC (Auto) Urine Chloride Urine Total Protein Vancomycin Trough Crossmatch 11/05/16 11/06/16 11/06/16 23:30 05:00 05:00 WBC 15.2 H RBC 3.29 L Hgb 10.0 L Hct MCV RDW 16.9 H Plt Count Lymph % (Auto) Wells % (Auto) Wells # Seg Neutrophils % Seg Neuts % (Manual) Lymphocytes % (Manual) Monocytes % (Manual) Basophils % (Manual) Nucleated RBC % Seg Neutrophils # Seg Neutrophils # Man Lymphocytes # (Manual) Monocytes # (Manual) Eosinophils # (Manual) Basophils # (Manual) PT INR APTT Heparin Anti-Xa Level 0.94 H POC ABG pH POC ABG pCO2 POC ABG pO2 Sodium Potassium Chloride Carbon Dioxide BUN Creatinine Glucose POC Glucose 131 H Calcium Phosphorus Magnesium AST Alkaline Phosphatase Troponin T C-Reactive Protein Total Protein Albumin Triglycerides HDL Cholesterol Lipase Vitamin B12 TSH Urine WBC (Auto) Urine Chloride Urine Total Protein Vancomycin Trough Crossmatch 11/06/16 11/06/16 11/06/16 05:00 11:45 18:23 WBC RBC Hgb Hct MCV RDW Plt Count Lymph % (Auto) Wells % (Auto) Wells # Seg Neutrophils % Seg Neuts % (Manual) Lymphocytes % (Manual) Monocytes % (Manual) Basophils % (Manual) Nucleated RBC % Seg Neutrophils # Seg Neutrophils # Man Lymphocytes # (Manual) Monocytes # (Manual) Eosinophils # (Manual) Basophils # (Manual) PT INR APTT Heparin Anti-Xa Level POC ABG pH POC ABG pCO2 POC ABG pO2 Sodium Potassium 3.5 L Chloride 107.1 H Carbon Dioxide 20 L BUN 4 L Creatinine 0.6 L Glucose 104 H POC Glucose 141 H 255 H Calcium 6.7 L Phosphorus Magnesium AST Alkaline Phosphatase Troponin T C-Reactive Protein Total Protein Albumin Triglycerides HDL Cholesterol Lipase Vitamin B12 TSH Urine WBC (Auto) Urine Chloride Urine Total Protein Vancomycin Trough Crossmatch 11/06/16 11/06/16 11/07/16 22:07 23:07 11:41 WBC RBC Hgb Hct MCV RDW Plt Count Lymph % (Auto) Wells % (Auto) Wells # Seg Neutrophils % Seg Neuts % (Manual) Lymphocytes % (Manual) Monocytes % (Manual) Basophils % (Manual) Nucleated RBC % Seg Neutrophils # Seg Neutrophils # Man Lymphocytes # (Manual) Monocytes # (Manual) Eosinophils # (Manual) Basophils # (Manual) PT INR APTT Heparin Anti-Xa Level 0.80 H POC ABG pH POC ABG pCO2 POC ABG pO2 Sodium Potassium Chloride Carbon Dioxide BUN Creatinine Glucose POC Glucose 183 H 132 H Calcium Phosphorus Magnesium AST Alkaline Phosphatase Troponin T C-Reactive Protein Total Protein Albumin Triglycerides HDL Cholesterol Lipase Vitamin B12 TSH Urine WBC (Auto) Urine Chloride Urine Total Protein Vancomycin Trough Crossmatch 11/07/16 11/07/16 11/07/16 12:17 17:05 17:58 WBC RBC Hgb Hct MCV RDW Plt Count Lymph % (Auto) Wells % (Auto) Wells # Seg Neutrophils % Seg Neuts % (Manual) Lymphocytes % (Manual) Monocytes % (Manual) Basophils % (Manual) Nucleated RBC % Seg Neutrophils # Seg Neutrophils # Man Lymphocytes # (Manual) Monocytes # (Manual) Eosinophils # (Manual) Basophils # (Manual) PT INR APTT Heparin Anti-Xa Level 0.87 H POC ABG pH 7.324 L POC ABG pCO2 POC ABG pO2 Sodium Potassium Chloride Carbon Dioxide BUN Creatinine Glucose POC Glucose 158 H Calcium Phosphorus Magnesium AST Alkaline Phosphatase Troponin T C-Reactive Protein Total Protein Albumin Triglycerides HDL Cholesterol Lipase Vitamin B12 TSH Urine WBC (Auto) Urine Chloride Urine Total Protein Vancomycin Trough Crossmatch 11/07/16 11/07/16 11/07/16 23:26 Unknown Unknown WBC 12.3 H RBC 2.96 L Hgb 9.1 L Hct 27.9 L MCV RDW 16.8 H Plt Count Lymph % (Auto) Wells % (Auto) Wells # Seg Neutrophils % Seg Neuts % (Manual) 80.0 H Lymphocytes % (Manual) 7.0 L Monocytes % (Manual) Basophils % (Manual) Nucleated RBC % Seg Neutrophils # Seg Neutrophils # Man 9.8 H Lymphocytes # (Manual) 0.9 L Monocytes # (Manual) Eosinophils # (Manual) Basophils # (Manual) PT INR APTT Heparin Anti-Xa Level POC ABG pH POC ABG pCO2 POC ABG pO2 Sodium Potassium Chloride Carbon Dioxide 19 L BUN Creatinine Glucose 106 H POC Glucose 130 H Calcium 6.9 L Phosphorus Magnesium AST Alkaline Phosphatase Troponin T C-Reactive Protein Total Protein Albumin Triglycerides HDL Cholesterol Lipase Vitamin B12 TSH Urine WBC (Auto) Urine Chloride Urine Total Protein Vancomycin Trough Crossmatch 11/07/16 11/08/16 11/08/16 Unknown 05:14 05:20 WBC 12.4 H RBC 3.04 L Hgb 9.2 L Hct 28.8 L MCV RDW 16.6 H Plt Count Lymph % (Auto) Wells % (Auto) Wells # Seg Neutrophils % Seg Neuts % (Manual) 77.0 H Lymphocytes % (Manual) 5.0 L Monocytes % (Manual) Basophils % (Manual) 2.0 H Nucleated RBC % Seg Neutrophils # Seg Neutrophils # Man 9.5 H Lymphocytes # (Manual) 0.6 L Monocytes # (Manual) Eosinophils # (Manual) Basophils # (Manual) 0.2 H PT INR APTT Heparin Anti-Xa Level 0.90 H POC ABG pH POC ABG pCO2 POC ABG pO2 Sodium Potassium Chloride Carbon Dioxide BUN Creatinine Glucose POC Glucose 204 H Calcium Phosphorus Magnesium AST Alkaline Phosphatase Troponin T C-Reactive Protein Total Protein Albumin Triglycerides HDL Cholesterol Lipase Vitamin B12 TSH Urine WBC (Auto) Urine Chloride Urine Total Protein Vancomycin Trough Crossmatch 11/08/16 11/08/16 11/08/16 05:20 12:10 13:10 WBC RBC Hgb Hct MCV RDW Plt Count Lymph % (Auto) Wells % (Auto) Wells # Seg Neutrophils % Seg Neuts % (Manual) Lymphocytes % (Manual) Monocytes % (Manual) Basophils % (Manual) Nucleated RBC % Seg Neutrophils # Seg Neutrophils # Man Lymphocytes # (Manual) Monocytes # (Manual) Eosinophils # (Manual) Basophils # (Manual) PT INR APTT Heparin Anti-Xa Level POC ABG pH POC ABG pCO2 33.7 L POC ABG pO2 Sodium 136 L Potassium Chloride Carbon Dioxide 19 L BUN Creatinine Glucose 192 H POC Glucose 180 H Calcium 7.1 L Phosphorus Magnesium AST Alkaline Phosphatase Troponin T C-Reactive Protein Total Protein Albumin Triglycerides HDL Cholesterol Lipase Vitamin B12 TSH Urine WBC (Auto) Urine Chloride Urine Total Protein Vancomycin Trough Crossmatch 11/08/16 11/08/16 11/08/16 17:26 20:45 23:34 WBC RBC Hgb Hct MCV RDW Plt Count Lymph % (Auto) Wells % (Auto) Wells # Seg Neutrophils % Seg Neuts % (Manual) Lymphocytes % (Manual) Monocytes % (Manual) Basophils % (Manual) Nucleated RBC % Seg Neutrophils # Seg Neutrophils # Man Lymphocytes # (Manual) Monocytes # (Manual) Eosinophils # (Manual) Basophils # (Manual) PT INR APTT Heparin Anti-Xa Level POC ABG pH POC ABG pCO2 POC ABG pO2 Sodium Potassium Chloride Carbon Dioxide BUN Creatinine Glucose POC Glucose 187 H 178 H Calcium Phosphorus Magnesium AST Alkaline Phosphatase Troponin T C-Reactive Protein Total Protein Albumin Triglycerides HDL Cholesterol Lipase Vitamin B12 TSH Urine WBC (Auto) Urine Chloride Urine Total Protein Vancomycin Trough 35.4 H Crossmatch 11/09/16 11/09/16 11/09/16 05:30 05:30 05:59 WBC 11.5 H RBC 2.96 L Hgb 9.2 L Hct 28.2 L MCV RDW 16.4 H Plt Count Lymph % (Auto) Wells % (Auto) Wells # Seg Neutrophils % Seg Neuts % (Manual) 76.0 H Lymphocytes % (Manual) 2.0 L Monocytes % (Manual) Basophils % (Manual) Nucleated RBC % Seg Neutrophils # Seg Neutrophils # Man 8.7 H Lymphocytes # (Manual) 0.2 L Monocytes # (Manual) Eosinophils # (Manual) Basophils # (Manual) PT INR APTT Heparin Anti-Xa Level POC ABG pH POC ABG pCO2 POC ABG pO2 Sodium Potassium 3.4 L Chloride 107.6 H Carbon Dioxide 19 L BUN Creatinine 0.6 L Glucose 207 H POC Glucose 263 H Calcium 7.3 L Phosphorus Magnesium AST Alkaline Phosphatase Troponin T C-Reactive Protein Total Protein Albumin Triglycerides HDL Cholesterol Lipase Vitamin B12 TSH Urine WBC (Auto) Urine Chloride Urine Total Protein Vancomycin Trough Crossmatch 11/09/16 11/09/16 11/09/16 11:49 15:24 18:04 WBC RBC Hgb Hct MCV RDW Plt Count Lymph % (Auto) Wells % (Auto) Wells # Seg Neutrophils % Seg Neuts % (Manual) Lymphocytes % (Manual) Monocytes % (Manual) Basophils % (Manual) Nucleated RBC % Seg Neutrophils # Seg Neutrophils # Man Lymphocytes # (Manual) Monocytes # (Manual) Eosinophils # (Manual) Basophils # (Manual) PT INR APTT Heparin Anti-Xa Level POC ABG pH POC ABG pCO2 33.8 L POC ABG pO2 131 H Sodium Potassium Chloride Carbon Dioxide BUN Creatinine Glucose POC Glucose 269 H 242 H Calcium Phosphorus Magnesium AST Alkaline Phosphatase Troponin T C-Reactive Protein Total Protein Albumin Triglycerides HDL Cholesterol Lipase Vitamin B12 TSH Urine WBC (Auto) Urine Chloride Urine Total Protein Vancomycin Trough Crossmatch 11/09/16 11/10/16 11/10/16 22:57 04:30 04:30 WBC 15.7 H RBC 3.17 L Hgb 9.7 L Hct 30.2 L MCV RDW 16.2 H Plt Count Lymph % (Auto) Wells % (Auto) Wells # Seg Neutrophils % Seg Neuts % (Manual) Lymphocytes % (Manual) Monocytes % (Manual) Basophils % (Manual) Nucleated RBC % Seg Neutrophils # Seg Neutrophils # Man 8.5 H Lymphocytes # (Manual) Monocytes # (Manual) Eosinophils # (Manual) 0.5 H Basophils # (Manual) PT INR APTT Heparin Anti-Xa Level POC ABG pH POC ABG pCO2 POC ABG pO2 Sodium Potassium Chloride Carbon Dioxide 19 L BUN Creatinine 0.6 L Glucose 199 H POC Glucose 239 H Calcium 7.8 L Phosphorus Magnesium AST Alkaline Phosphatase Troponin T C-Reactive Protein Total Protein Albumin Triglycerides HDL Cholesterol Lipase Vitamin B12 TSH Urine WBC (Auto) Urine Chloride Urine Total Protein Vancomycin Trough Crossmatch 11/10/16 11/10/16 11/10/16 04:30 11:32 16:00 WBC RBC Hgb Hct MCV RDW Plt Count Lymph % (Auto) Wells % (Auto) Wells # Seg Neutrophils % Seg Neuts % (Manual) Lymphocytes % (Manual) Monocytes % (Manual) Basophils % (Manual) Nucleated RBC % Seg Neutrophils # Seg Neutrophils # Man Lymphocytes # (Manual) Monocytes # (Manual) Eosinophils # (Manual) Basophils # (Manual) PT INR APTT Heparin Anti-Xa Level 1.09 H < 0.10 L POC ABG pH POC ABG pCO2 POC ABG pO2 Sodium Potassium Chloride Carbon Dioxide BUN Creatinine Glucose POC Glucose 211 H Calcium Phosphorus Magnesium AST Alkaline Phosphatase Troponin T C-Reactive Protein Total Protein Albumin Triglycerides HDL Cholesterol Lipase Vitamin B12 TSH Urine WBC (Auto) Urine Chloride Urine Total Protein Vancomycin Trough Crossmatch 11/10/16 11/10/16 11/10/16 17:39 18:00 23:06 WBC RBC Hgb Hct MCV RDW Plt Count Lymph % (Auto) Wells % (Auto) Wells # Seg Neutrophils % Seg Neuts % (Manual) Lymphocytes % (Manual) Monocytes % (Manual) Basophils % (Manual) Nucleated RBC % Seg Neutrophils # Seg Neutrophils # Man Lymphocytes # (Manual) Monocytes # (Manual) Eosinophils # (Manual) Basophils # (Manual) PT INR APTT Heparin Anti-Xa Level 0.85 H POC ABG pH POC ABG pCO2 POC ABG pO2 Sodium Potassium Chloride Carbon Dioxide BUN Creatinine Glucose POC Glucose 249 H 220 H Calcium Phosphorus Magnesium AST Alkaline Phosphatase Troponin T C-Reactive Protein Total Protein Albumin Triglycerides HDL Cholesterol Lipase Vitamin B12 TSH Urine WBC (Auto) Urine Chloride Urine Total Protein Vancomycin Trough Crossmatch 11/11/16 11/11/16 11/11/16 05:56 06:15 06:15 WBC 13.3 H RBC 2.87 L Hgb 8.7 L Hct 27.2 L MCV RDW 16.4 H Plt Count Lymph % (Auto) Wells % (Auto) Wells # 0.9 H Seg Neutrophils % 78.9 H Seg Neuts % (Manual) Lymphocytes % (Manual) Monocytes % (Manual) Basophils % (Manual) Nucleated RBC % Seg Neutrophils # 10.5 H Seg Neutrophils # Man Lymphocytes # (Manual) Monocytes # (Manual) Eosinophils # (Manual) Basophils # (Manual) PT INR APTT Heparin Anti-Xa Level POC ABG pH POC ABG pCO2 POC ABG pO2 Sodium Potassium 3.2 L Chloride Carbon Dioxide 19 L BUN Creatinine Glucose POC Glucose 117 H Calcium 7.6 L Phosphorus Magnesium AST Alkaline Phosphatase Troponin T C-Reactive Protein Total Protein Albumin Triglycerides HDL Cholesterol Lipase Vitamin B12 TSH Urine WBC (Auto) Urine Chloride Urine Total Protein Vancomycin Trough Crossmatch 11/11/16 11/11/16 11/11/16 12:26 16:58 17:33 WBC RBC Hgb Hct MCV RDW Plt Count Lymph % (Auto) Wells % (Auto) Wells # Seg Neutrophils % Seg Neuts % (Manual) Lymphocytes % (Manual) Monocytes % (Manual) Basophils % (Manual) Nucleated RBC % Seg Neutrophils # Seg Neutrophils # Man Lymphocytes # (Manual) Monocytes # (Manual) Eosinophils # (Manual) Basophils # (Manual) PT INR APTT Heparin Anti-Xa Level < 0.10 L POC ABG pH POC ABG pCO2 POC ABG pO2 Sodium Potassium Chloride Carbon Dioxide BUN Creatinine Glucose POC Glucose 114 H 161 H Calcium Phosphorus Magnesium AST Alkaline Phosphatase Troponin T C-Reactive Protein Total Protein Albumin Triglycerides HDL Cholesterol Lipase Vitamin B12 TSH Urine WBC (Auto) Urine Chloride Urine Total Protein Vancomycin Trough Crossmatch 11/12/16 11/12/16 11/12/16 05:00 05:00 05:00 WBC 12.8 H RBC 2.75 L Hgb 8.4 L Hct 25.7 L MCV RDW 16.3 H Plt Count Lymph % (Auto) Wells % (Auto) 7.5 H Wells # 1.0 H Seg Neutrophils % 78.0 H Seg Neuts % (Manual) Lymphocytes % (Manual) Monocytes % (Manual) Basophils % (Manual) Nucleated RBC % Seg Neutrophils # 10.0 H Seg Neutrophils # Man Lymphocytes # (Manual) Monocytes # (Manual) Eosinophils # (Manual) Basophils # (Manual) PT INR APTT Heparin Anti-Xa Level 0.87 H POC ABG pH POC ABG pCO2 POC ABG pO2 Sodium Potassium 3.4 L Chloride Carbon Dioxide 19 L BUN Creatinine Glucose 112 H POC Glucose Calcium 7.7 L Phosphorus Magnesium AST Alkaline Phosphatase Troponin T C-Reactive Protein Total Protein Albumin Triglycerides HDL Cholesterol Lipase Vitamin B12 TSH Urine WBC (Auto) Urine Chloride Urine Total Protein Vancomycin Trough Crossmatch 11/12/16 11/12/16 11/13/16 11:18 16:40 00:44 WBC RBC Hgb Hct MCV RDW Plt Count Lymph % (Auto) Wells % (Auto) Wells # Seg Neutrophils % Seg Neuts % (Manual) Lymphocytes % (Manual) Monocytes % (Manual) Basophils % (Manual) Nucleated RBC % Seg Neutrophils # Seg Neutrophils # Man Lymphocytes # (Manual) Monocytes # (Manual) Eosinophils # (Manual) Basophils # (Manual) PT INR APTT Heparin Anti-Xa Level POC ABG pH POC ABG pCO2 POC ABG pO2 Sodium Potassium Chloride Carbon Dioxide BUN Creatinine Glucose POC Glucose 135 H 139 H 169 H Calcium Phosphorus Magnesium AST Alkaline Phosphatase Troponin T C-Reactive Protein Total Protein Albumin Triglycerides HDL Cholesterol Lipase Vitamin B12 TSH Urine WBC (Auto) Urine Chloride Urine Total Protein Vancomycin Trough Crossmatch 11/13/16 11/13/16 11/13/16 05:28 05:28 06:02 WBC 12.7 H RBC 2.93 L Hgb 9.0 L Hct 27.6 L MCV RDW 16.1 H Plt Count Lymph % (Auto) Wells % (Auto) Wells # Seg Neutrophils % 78.6 H Seg Neuts % (Manual) Lymphocytes % (Manual) Monocytes % (Manual) Basophils % (Manual) Nucleated RBC % Seg Neutrophils # 10.0 H Seg Neutrophils # Man Lymphocytes # (Manual) Monocytes # (Manual) Eosinophils # (Manual) Basophils # (Manual) PT INR APTT Heparin Anti-Xa Level POC ABG pH POC ABG pCO2 POC ABG pO2 Sodium Potassium Chloride Carbon Dioxide 17 L BUN Creatinine Glucose 116 H POC Glucose 112 H Calcium 7.8 L Phosphorus Magnesium AST Alkaline Phosphatase Troponin T C-Reactive Protein Total Protein Albumin Triglycerides HDL Cholesterol Lipase Vitamin B12 TSH Urine WBC (Auto) Urine Chloride Urine Total Protein Vancomycin Trough Crossmatch 11/13/16 11/13/16 11/13/16 12:34 16:55 17:00 WBC RBC Hgb Hct MCV RDW Plt Count Lymph % (Auto) Wells % (Auto) Wells # Seg Neutrophils % Seg Neuts % (Manual) Lymphocytes % (Manual) Monocytes % (Manual) Basophils % (Manual) Nucleated RBC % Seg Neutrophils # Seg Neutrophils # Man Lymphocytes # (Manual) Monocytes # (Manual) Eosinophils # (Manual) Basophils # (Manual) PT INR APTT Heparin Anti-Xa Level POC ABG pH POC ABG pCO2 22.9 L POC ABG pO2 53 L Sodium Potassium Chloride Carbon Dioxide BUN Creatinine Glucose POC Glucose 109 H 122 H Calcium Phosphorus Magnesium AST Alkaline Phosphatase Troponin T C-Reactive Protein Total Protein Albumin Triglycerides HDL Cholesterol Lipase Vitamin B12 TSH Urine WBC (Auto) Urine Chloride Urine Total Protein Vancomycin Trough Crossmatch 11/13/16 11/14/16 11/14/16 23:33 04:42 04:42 WBC 11.7 H RBC 3.01 L Hgb 9.3 L Hct 28.9 L MCV RDW 16.5 H Plt Count Lymph % (Auto) Wells % (Auto) Wells # Seg Neutrophils % Seg Neuts % (Manual) 79.0 H Lymphocytes % (Manual) 10.0 L Monocytes % (Manual) Basophils % (Manual) Nucleated RBC % Seg Neutrophils # Seg Neutrophils # Man 9.2 H Lymphocytes # (Manual) Monocytes # (Manual) Eosinophils # (Manual) Basophils # (Manual) PT INR APTT Heparin Anti-Xa Level POC ABG pH POC ABG pCO2 POC ABG pO2 Sodium Potassium Chloride Carbon Dioxide 16 L BUN Creatinine Glucose 102 H POC Glucose 173 H Calcium 7.5 L Phosphorus Magnesium AST Alkaline Phosphatase Troponin T C-Reactive Protein Total Protein Albumin Triglycerides HDL Cholesterol Lipase Vitamin B12 TSH Urine WBC (Auto) Urine Chloride Urine Total Protein Vancomycin Trough Crossmatch 11/14/16 11/14/16 11/14/16 11:43 16:57 19:45 WBC RBC Hgb Hct MCV RDW Plt Count Lymph % (Auto) Wells % (Auto) Wells # Seg Neutrophils % Seg Neuts % (Manual) Lymphocytes % (Manual) Monocytes % (Manual) Basophils % (Manual) Nucleated RBC % Seg Neutrophils # Seg Neutrophils # Man Lymphocytes # (Manual) Monocytes # (Manual) Eosinophils # (Manual) Basophils # (Manual) PT INR APTT Heparin Anti-Xa Level 0.71 H POC ABG pH POC ABG pCO2 POC ABG pO2 Sodium Potassium Chloride Carbon Dioxide BUN Creatinine Glucose POC Glucose 130 H 209 H Calcium Phosphorus Magnesium AST Alkaline Phosphatase Troponin T C-Reactive Protein Total Protein Albumin Triglycerides HDL Cholesterol Lipase Vitamin B12 TSH Urine WBC (Auto) Urine Chloride Urine Total Protein Vancomycin Trough Crossmatch 11/14/16 11/15/16 11/16/16 23:43 23:47 06:11 WBC RBC Hgb Hct MCV RDW Plt Count Lymph % (Auto) Wells % (Auto) Wells # Seg Neutrophils % Seg Neuts % (Manual) Lymphocytes % (Manual) Monocytes % (Manual) Basophils % (Manual) Nucleated RBC % Seg Neutrophils # Seg Neutrophils # Man Lymphocytes # (Manual) Monocytes # (Manual) Eosinophils # (Manual) Basophils # (Manual) PT INR APTT Heparin Anti-Xa Level POC ABG pH POC ABG pCO2 POC ABG pO2 Sodium Potassium Chloride Carbon Dioxide BUN Creatinine Glucose POC Glucose 167 H 114 H 125 H Calcium Phosphorus Magnesium AST Alkaline Phosphatase Troponin T C-Reactive Protein Total Protein Albumin Triglycerides HDL Cholesterol Lipase Vitamin B12 TSH Urine WBC (Auto) Urine Chloride Urine Total Protein Vancomycin Trough Crossmatch 11/16/16 11/16/16 11/16/16 09:05 09:05 09:05 WBC RBC 2.53 L Hgb 8.0 L Hct 23.7 L MCV RDW 15.9 H Plt Count Lymph % (Auto) Wells % (Auto) Wells # Seg Neutrophils % Seg Neuts % (Manual) Lymphocytes % (Manual) Monocytes % (Manual) Basophils % (Manual) Nucleated RBC % Seg Neutrophils # Seg Neutrophils # Man Lymphocytes # (Manual) Monocytes # (Manual) Eosinophils # (Manual) Basophils # (Manual) PT INR APTT Heparin Anti-Xa Level POC ABG pH POC ABG pCO2 POC ABG pO2 Sodium Potassium 2.5 L* D Chloride Carbon Dioxide 19 L BUN 5 L Creatinine Glucose 103 H POC Glucose Calcium 6.6 L Phosphorus Magnesium 1.3 L AST Alkaline Phosphatase Troponin T C-Reactive Protein Total Protein Albumin Triglycerides HDL Cholesterol Lipase Vitamin B12 TSH Urine WBC (Auto) Urine Chloride Urine Total Protein Vancomycin Trough Crossmatch 11/16/16 11/16/16 11/16/16 12:15 13:00 14:45 WBC RBC Hgb Hct MCV RDW Plt Count Lymph % (Auto) Wells % (Auto) Wells # Seg Neutrophils % Seg Neuts % (Manual) Lymphocytes % (Manual) Monocytes % (Manual) Basophils % (Manual) Nucleated RBC % Seg Neutrophils # Seg Neutrophils # Man Lymphocytes # (Manual) Monocytes # (Manual) Eosinophils # (Manual) Basophils # (Manual) PT 19.1 H INR 1.61 H APTT Heparin Anti-Xa Level POC ABG pH 7.479 H POC ABG pCO2 23.6 L POC ABG pO2 Sodium Potassium Chloride Carbon Dioxide BUN Creatinine Glucose POC Glucose 129 H Calcium Phosphorus Magnesium AST Alkaline Phosphatase Troponin T C-Reactive Protein Total Protein Albumin Triglycerides HDL Cholesterol Lipase Vitamin B12 TSH Urine WBC (Auto) Urine Chloride Urine Total Protein Vancomycin Trough Crossmatch 11/16/16 11/17/16 11/17/16 17:43 00:30 04:32 WBC RBC Hgb Hct MCV RDW Plt Count Lymph % (Auto) Wells % (Auto) Wells # Seg Neutrophils % Seg Neuts % (Manual) Lymphocytes % (Manual) Monocytes % (Manual) Basophils % (Manual) Nucleated RBC % Seg Neutrophils # Seg Neutrophils # Man Lymphocytes # (Manual) Monocytes # (Manual) Eosinophils # (Manual) Basophils # (Manual) PT INR APTT Heparin Anti-Xa Level POC ABG pH POC ABG pCO2 POC ABG pO2 Sodium Potassium Chloride Carbon Dioxide 18 L BUN Creatinine Glucose 127 H POC Glucose 224 H 259 H Calcium 7.5 L Phosphorus Magnesium AST Alkaline Phosphatase Troponin T C-Reactive Protein Total Protein Albumin Triglycerides HDL Cholesterol Lipase Vitamin B12 TSH Urine WBC (Auto) Urine Chloride Urine Total Protein Vancomycin Trough Crossmatch 11/17/16 11/17/16 11/17/16 05:42 08:34 12:19 WBC RBC 2.85 L Hgb 8.9 L Hct 26.5 L MCV RDW 16.2 H Plt Count Lymph % (Auto) Wells % (Auto) Wells # Seg Neutrophils % Seg Neuts % (Manual) Lymphocytes % (Manual) Monocytes % (Manual) Basophils % (Manual) Nucleated RBC % Seg Neutrophils # Seg Neutrophils # Man Lymphocytes # (Manual) Monocytes # (Manual) Eosinophils # (Manual) Basophils # (Manual) PT INR APTT Heparin Anti-Xa Level POC ABG pH POC ABG pCO2 POC ABG pO2 Sodium Potassium Chloride Carbon Dioxide BUN Creatinine Glucose POC Glucose 118 H 264 H Calcium Phosphorus Magnesium AST Alkaline Phosphatase Troponin T C-Reactive Protein Total Protein Albumin Triglycerides HDL Cholesterol Lipase Vitamin B12 TSH Urine WBC (Auto) Urine Chloride Urine Total Protein Vancomycin Trough Crossmatch 11/17/16 11/17/16 11/18/16 16:52 23:44 04:53 WBC RBC Hgb Hct MCV RDW Plt Count Lymph % (Auto) Wells % (Auto) Wells # Seg Neutrophils % Seg Neuts % (Manual) Lymphocytes % (Manual) Monocytes % (Manual) Basophils % (Manual) Nucleated RBC % Seg Neutrophils # Seg Neutrophils # Man Lymphocytes # (Manual) Monocytes # (Manual) Eosinophils # (Manual) Basophils # (Manual) PT INR APTT Heparin Anti-Xa Level POC ABG pH POC ABG pCO2 POC ABG pO2 Sodium Potassium Chloride Carbon Dioxide BUN Creatinine Glucose POC Glucose 256 H 109 H 287 H Calcium Phosphorus Magnesium AST Alkaline Phosphatase Troponin T C-Reactive Protein Total Protein Albumin Triglycerides HDL Cholesterol Lipase Vitamin B12 TSH Urine WBC (Auto) Urine Chloride Urine Total Protein Vancomycin Trough Crossmatch 11/18/16 11/18/16 11/18/16 05:31 05:45 05:45 WBC RBC Hgb Hct MCV RDW Plt Count Lymph % (Auto) Wells % (Auto) Wells # Seg Neutrophils % Seg Neuts % (Manual) Lymphocytes % (Manual) Monocytes % (Manual) Basophils % (Manual) Nucleated RBC % Seg Neutrophils # Seg Neutrophils # Man Lymphocytes # (Manual) Monocytes # (Manual) Eosinophils # (Manual) Basophils # (Manual) PT 20.1 H INR 1.72 H APTT 131.1 H* Heparin Anti-Xa Level 0.18 L POC ABG pH 7.252 L POC ABG pCO2 32.0 L POC ABG pO2 Sodium Potassium Chloride 107.1 H Carbon Dioxide 17 L BUN Creatinine Glucose 284 H POC Glucose Calcium 7.2 L Phosphorus Magnesium AST Alkaline Phosphatase Troponin T C-Reactive Protein Total Protein 5.5 L Albumin 2.1 L Triglycerides HDL Cholesterol Lipase Vitamin B12 TSH Urine WBC (Auto) Urine Chloride Urine Total Protein Vancomycin Trough Crossmatch 11/18/16 11/18/16 11/18/16 05:45 09:17 12:06 WBC 13.3 H RBC 3.07 L Hgb 9.2 L Hct 29.5 L MCV RDW 16.9 H Plt Count Lymph % (Auto) 11.0 L Wells % (Auto) Wells # Seg Neutrophils % 82.9 H Seg Neuts % (Manual) Lymphocytes % (Manual) Monocytes % (Manual) Basophils % (Manual) Nucleated RBC % Seg Neutrophils # 11.0 H Seg Neutrophils # Man Lymphocytes # (Manual) Monocytes # (Manual) Eosinophils # (Manual) Basophils # (Manual) PT INR APTT Heparin Anti-Xa Level POC ABG pH POC ABG pCO2 24.3 L POC ABG pO2 79 L Sodium Potassium Chloride Carbon Dioxide BUN Creatinine Glucose POC Glucose 433 H Calcium Phosphorus Magnesium AST Alkaline Phosphatase Troponin T C-Reactive Protein Total Protein Albumin Triglycerides HDL Cholesterol Lipase Vitamin B12 TSH Urine WBC (Auto) Urine Chloride Urine Total Protein Vancomycin Trough Crossmatch 11/18/16 11/18/16 11/18/16 12:09 13:00 17:22 WBC 12.6 H RBC 2.79 L Hgb 8.6 L Hct 26.6 L MCV RDW 17.0 H Plt Count Lymph % (Auto) Wells % (Auto) Wells # Seg Neutrophils % Seg Neuts % (Manual) 90.0 H Lymphocytes % (Manual) 8.0 L Monocytes % (Manual) Basophils % (Manual) Nucleated RBC % Seg Neutrophils # Seg Neutrophils # Man 11.3 H Lymphocytes # (Manual) 1.0 L Monocytes # (Manual) Eosinophils # (Manual) Basophils # (Manual) PT INR APTT Heparin Anti-Xa Level POC ABG pH POC ABG pCO2 POC ABG pO2 Sodium Potassium Chloride Carbon Dioxide BUN Creatinine Glucose POC Glucose 429 H 297 H Calcium Phosphorus Magnesium AST Alkaline Phosphatase Troponin T C-Reactive Protein Total Protein Albumin Triglycerides HDL Cholesterol Lipase Vitamin B12 TSH Urine WBC (Auto) Urine Chloride Urine Total Protein Vancomycin Trough Crossmatch 11/18/16 11/19/16 11/19/16 23:27 04:30 04:30 WBC RBC 2.92 L Hgb 8.8 L Hct 27.0 L MCV RDW 16.6 H Plt Count Lymph % (Auto) Wells % (Auto) Wells # Seg Neutrophils % Seg Neuts % (Manual) Lymphocytes % (Manual) Monocytes % (Manual) Basophils % (Manual) Nucleated RBC % Seg Neutrophils # Seg Neutrophils # Man Lymphocytes # (Manual) Monocytes # (Manual) Eosinophils # (Manual) Basophils # (Manual) PT INR APTT Heparin Anti-Xa Level POC ABG pH POC ABG pCO2 POC ABG pO2 Sodium Potassium 3.0 L Chloride 107.9 H Carbon Dioxide 20 L BUN Creatinine Glucose 231 H POC Glucose 268 H Calcium 7.1 L Phosphorus Magnesium AST Alkaline Phosphatase Troponin T C-Reactive Protein Total Protein 5.5 L Albumin 2.1 L Triglycerides HDL Cholesterol Lipase Vitamin B12 TSH Urine WBC (Auto) Urine Chloride Urine Total Protein Vancomycin Trough Crossmatch 11/19/16 11/19/16 11/19/16 04:40 06:40 10:00 WBC RBC Hgb Hct MCV RDW Plt Count Lymph % (Auto) Wells % (Auto) Wells # Seg Neutrophils % Seg Neuts % (Manual) Lymphocytes % (Manual) Monocytes % (Manual) Basophils % (Manual) Nucleated RBC % Seg Neutrophils # Seg Neutrophils # Man Lymphocytes # (Manual) Monocytes # (Manual) Eosinophils # (Manual) Basophils # (Manual) PT INR APTT Heparin Anti-Xa Level POC ABG pH POC ABG pCO2 POC ABG pO2 Sodium Potassium Chloride Carbon Dioxide BUN Creatinine Glucose POC Glucose 267 H 244 H Calcium Phosphorus Magnesium 1.4 L AST Alkaline Phosphatase Troponin T C-Reactive Protein Total Protein Albumin Triglycerides HDL Cholesterol Lipase Vitamin B12 TSH Urine WBC (Auto) Urine Chloride Urine Total Protein Vancomycin Trough Crossmatch 11/19/16 11/19/16 11/19/16 12:08 18:10 23:40 WBC RBC Hgb Hct MCV RDW Plt Count Lymph % (Auto) Wells % (Auto) Wells # Seg Neutrophils % Seg Neuts % (Manual) Lymphocytes % (Manual) Monocytes % (Manual) Basophils % (Manual) Nucleated RBC % Seg Neutrophils # Seg Neutrophils # Man Lymphocytes # (Manual) Monocytes # (Manual) Eosinophils # (Manual) Basophils # (Manual) PT INR APTT Heparin Anti-Xa Level POC ABG pH POC ABG pCO2 POC ABG pO2 Sodium Potassium Chloride Carbon Dioxide BUN Creatinine Glucose POC Glucose 254 H 265 H 197 H Calcium Phosphorus Magnesium AST Alkaline Phosphatase Troponin T C-Reactive Protein Total Protein Albumin Triglycerides HDL Cholesterol Lipase Vitamin B12 TSH Urine WBC (Auto) Urine Chloride Urine Total Protein Vancomycin Trough Crossmatch 11/20/16 11/20/16 11/20/16 05:00 05:44 11:33 WBC RBC Hgb Hct MCV RDW Plt Count Lymph % (Auto) Wells % (Auto) Wells # Seg Neutrophils % Seg Neuts % (Manual) Lymphocytes % (Manual) Monocytes % (Manual) Basophils % (Manual) Nucleated RBC % Seg Neutrophils # Seg Neutrophils # Man Lymphocytes # (Manual) Monocytes # (Manual) Eosinophils # (Manual) Basophils # (Manual) PT INR APTT Heparin Anti-Xa Level POC ABG pH POC ABG pCO2 POC ABG pO2 Sodium Potassium 3.4 L Chloride 107.4 H Carbon Dioxide 20 L BUN Creatinine Glucose 140 H POC Glucose 163 H 108 H Calcium 7.2 L Phosphorus Magnesium AST Alkaline Phosphatase Troponin T C-Reactive Protein Total Protein Albumin Triglycerides HDL Cholesterol Lipase Vitamin B12 TSH Urine WBC (Auto) Urine Chloride Urine Total Protein Vancomycin Trough Crossmatch 11/20/16 11/20/16 11/20/16 13:03 16:45 23:26 WBC RBC Hgb Hct MCV RDW Plt Count Lymph % (Auto) Wells % (Auto) Wells # Seg Neutrophils % Seg Neuts % (Manual) Lymphocytes % (Manual) Monocytes % (Manual) Basophils % (Manual) Nucleated RBC % Seg Neutrophils # Seg Neutrophils # Man Lymphocytes # (Manual) Monocytes # (Manual) Eosinophils # (Manual) Basophils # (Manual) PT INR APTT Heparin Anti-Xa Level POC ABG pH POC ABG pCO2 POC ABG pO2 Sodium Potassium Chloride Carbon Dioxide BUN Creatinine Glucose POC Glucose 113 H 168 H Calcium Phosphorus Magnesium AST Alkaline Phosphatase Troponin T C-Reactive Protein Total Protein Albumin Triglycerides HDL Cholesterol Lipase Vitamin B12 TSH Urine WBC (Auto) Urine Chloride Urine Total Protein Vancomycin Trough 45.8 H Crossmatch 11/21/16 11/21/16 11/21/16 05:00 05:27 09:50 WBC RBC Hgb Hct MCV RDW Plt Count Lymph % (Auto) Wells % (Auto) Wells # Seg Neutrophils % Seg Neuts % (Manual) Lymphocytes % (Manual) Monocytes % (Manual) Basophils % (Manual) Nucleated RBC % Seg Neutrophils # Seg Neutrophils # Man Lymphocytes # (Manual) Monocytes # (Manual) Eosinophils # (Manual) Basophils # (Manual) PT INR APTT Heparin Anti-Xa Level POC ABG pH POC ABG pCO2 POC ABG pO2 Sodium 133 L D Potassium Chloride Carbon Dioxide 19 L BUN Creatinine Glucose 280 H POC Glucose 222 H Calcium 7.4 L Phosphorus Magnesium AST Alkaline Phosphatase Troponin T C-Reactive Protein Total Protein Albumin Triglycerides HDL Cholesterol Lipase Vitamin B12 TSH Urine WBC (Auto) Urine Chloride Urine Total Protein Vancomycin Trough 30.4 H Crossmatch 11/21/16 11/21/16 11/21/16 12:36 17:17 18:34 WBC RBC Hgb Hct MCV RDW Plt Count Lymph % (Auto) Wells % (Auto) Wells # Seg Neutrophils % Seg Neuts % (Manual) Lymphocytes % (Manual) Monocytes % (Manual) Basophils % (Manual) Nucleated RBC % Seg Neutrophils # Seg Neutrophils # Man Lymphocytes # (Manual) Monocytes # (Manual) Eosinophils # (Manual) Basophils # (Manual) PT INR APTT Heparin Anti-Xa Level POC ABG pH POC ABG pCO2 POC ABG pO2 Sodium Potassium Chloride Carbon Dioxide BUN Creatinine Glucose POC Glucose 306 H 339 H 318 H Calcium Phosphorus Magnesium AST Alkaline Phosphatase Troponin T C-Reactive Protein Total Protein Albumin Triglycerides HDL Cholesterol Lipase Vitamin B12 TSH Urine WBC (Auto) Urine Chloride Urine Total Protein Vancomycin Trough Crossmatch 11/21/16 11/22/16 11/22/16 23:16 07:19 11:49 WBC 11.1 H RBC 2.60 L Hgb 7.8 L Hct 24.4 L MCV RDW 16.3 H Plt Count Lymph % (Auto) Wells % (Auto) Wells # Seg Neutrophils % 76.8 H Seg Neuts % (Manual) Lymphocytes % (Manual) Monocytes % (Manual) Basophils % (Manual) Nucleated RBC % Seg Neutrophils # 8.5 H Seg Neutrophils # Man Lymphocytes # (Manual) Monocytes # (Manual) Eosinophils # (Manual) Basophils # (Manual) PT INR APTT Heparin Anti-Xa Level POC ABG pH POC ABG pCO2 POC ABG pO2 Sodium Potassium Chloride Carbon Dioxide BUN Creatinine Glucose POC Glucose 286 H 371 H Calcium Phosphorus Magnesium AST Alkaline Phosphatase Troponin T C-Reactive Protein Total Protein Albumin Triglycerides HDL Cholesterol Lipase Vitamin B12 TSH Urine WBC (Auto) Urine Chloride Urine Total Protein Vancomycin Trough Crossmatch 11/22/16 11/22/16 11/22/16 11:50 11:50 17:34 WBC RBC Hgb Hct MCV RDW Plt Count Lymph % (Auto) Wells % (Auto) Wells # Seg Neutrophils % Seg Neuts % (Manual) Lymphocytes % (Manual) Monocytes % (Manual) Basophils % (Manual) Nucleated RBC % Seg Neutrophils # Seg Neutrophils # Man Lymphocytes # (Manual) Monocytes # (Manual) Eosinophils # (Manual) Basophils # (Manual) PT INR APTT Heparin Anti-Xa Level POC ABG pH POC ABG pCO2 POC ABG pO2 Sodium 130 L Potassium Chloride Carbon Dioxide 19 L BUN 20 H Creatinine Glucose 266 H POC Glucose 262 H 284 H Calcium 7.2 L Phosphorus Magnesium AST Alkaline Phosphatase Troponin T C-Reactive Protein Total Protein Albumin Triglycerides HDL Cholesterol Lipase Vitamin B12 TSH Urine WBC (Auto) Urine Chloride Urine Total Protein Vancomycin Trough Crossmatch 11/22/16 11/22/16 11/22/16 17:43 20:04 23:38 WBC RBC Hgb Hct MCV RDW Plt Count Lymph % (Auto) Wells % (Auto) Wells # Seg Neutrophils % Seg Neuts % (Manual) Lymphocytes % (Manual) Monocytes % (Manual) Basophils % (Manual) Nucleated RBC % Seg Neutrophils # Seg Neutrophils # Man Lymphocytes # (Manual) Monocytes # (Manual) Eosinophils # (Manual) Basophils # (Manual) PT INR APTT Heparin Anti-Xa Level POC ABG pH 7.492 H POC ABG pCO2 23.2 L POC ABG pO2 60 L Sodium Potassium Chloride Carbon Dioxide BUN Creatinine Glucose POC Glucose 261 H 253 H Calcium Phosphorus Magnesium AST Alkaline Phosphatase Troponin T C-Reactive Protein Total Protein Albumin Triglycerides HDL Cholesterol Lipase Vitamin B12 TSH Urine WBC (Auto) Urine Chloride Urine Total Protein Vancomycin Trough Crossmatch 11/23/16 11/23/16 11/23/16 06:27 08:20 11:54 WBC RBC Hgb 8.2 L Hct 24.9 L MCV RDW Plt Count Lymph % (Auto) Wells % (Auto) Wells # Seg Neutrophils % Seg Neuts % (Manual) Lymphocytes % (Manual) Monocytes % (Manual) Basophils % (Manual) Nucleated RBC % Seg Neutrophils # Seg Neutrophils # Man Lymphocytes # (Manual) Monocytes # (Manual) Eosinophils # (Manual) Basophils # (Manual) PT INR APTT Heparin Anti-Xa Level POC ABG pH POC ABG pCO2 POC ABG pO2 Sodium Potassium Chloride Carbon Dioxide BUN Creatinine Glucose POC Glucose 333 H 286 H Calcium Phosphorus Magnesium AST Alkaline Phosphatase Troponin T C-Reactive Protein Total Protein Albumin Triglycerides HDL Cholesterol Lipase Vitamin B12 TSH Urine WBC (Auto) Urine Chloride Urine Total Protein Vancomycin Trough Crossmatch 11/23/16 11/23/16 11/24/16 17:53 23:51 00:12 WBC RBC Hgb Hct MCV RDW Plt Count Lymph % (Auto) Wells % (Auto) Wells # Seg Neutrophils % Seg Neuts % (Manual) Lymphocytes % (Manual) Monocytes % (Manual) Basophils % (Manual) Nucleated RBC % Seg Neutrophils # Seg Neutrophils # Man Lymphocytes # (Manual) Monocytes # (Manual) Eosinophils # (Manual) Basophils # (Manual) PT INR APTT Heparin Anti-Xa Level POC ABG pH POC ABG pCO2 POC ABG pO2 Sodium Potassium Chloride Carbon Dioxide BUN Creatinine Glucose POC Glucose 195 H 214 H 223 H Calcium Phosphorus Magnesium AST Alkaline Phosphatase Troponin T C-Reactive Protein Total Protein Albumin Triglycerides HDL Cholesterol Lipase Vitamin B12 TSH Urine WBC (Auto) Urine Chloride Urine Total Protein Vancomycin Trough Crossmatch 11/24/16 11/24/16 11/24/16 04:50 04:50 06:08 WBC RBC 2.74 L Hgb 8.4 L Hct 26.1 L MCV RDW 16.0 H Plt Count Lymph % (Auto) Wells % (Auto) Wells # Seg Neutrophils % Seg Neuts % (Manual) Lymphocytes % (Manual) Monocytes % (Manual) Basophils % (Manual) Nucleated RBC % Seg Neutrophils # Seg Neutrophils # Man Lymphocytes # (Manual) Monocytes # (Manual) Eosinophils # (Manual) Basophils # (Manual) PT INR APTT Heparin Anti-Xa Level POC ABG pH POC ABG pCO2 POC ABG pO2 Sodium 133 L Potassium Chloride Carbon Dioxide 19 L BUN 23 H Creatinine Glucose 200 H POC Glucose 187 H Calcium 7.2 L Phosphorus Magnesium AST Alkaline Phosphatase Troponin T C-Reactive Protein Total Protein Albumin Triglycerides HDL Cholesterol Lipase Vitamin B12 TSH Urine WBC (Auto) Urine Chloride Urine Total Protein Vancomycin Trough Crossmatch 11/24/16 11/24/16 11/24/16 12:02 17:43 23:35 WBC RBC Hgb Hct MCV RDW Plt Count Lymph % (Auto) Wells % (Auto) Wells # Seg Neutrophils % Seg Neuts % (Manual) Lymphocytes % (Manual) Monocytes % (Manual) Basophils % (Manual) Nucleated RBC % Seg Neutrophils # Seg Neutrophils # Man Lymphocytes # (Manual) Monocytes # (Manual) Eosinophils # (Manual) Basophils # (Manual) PT INR APTT Heparin Anti-Xa Level POC ABG pH POC ABG pCO2 POC ABG pO2 Sodium Potassium Chloride Carbon Dioxide BUN Creatinine Glucose POC Glucose 250 H 226 H 230 H Calcium Phosphorus Magnesium AST Alkaline Phosphatase Troponin T C-Reactive Protein Total Protein Albumin Triglycerides HDL Cholesterol Lipase Vitamin B12 TSH Urine WBC (Auto) Urine Chloride Urine Total Protein Vancomycin Trough Crossmatch 11/25/16 11/25/16 11/25/16 05:47 11:37 18:00 WBC RBC Hgb Hct MCV RDW Plt Count Lymph % (Auto) Wells % (Auto) Wells # Seg Neutrophils % Seg Neuts % (Manual) Lymphocytes % (Manual) Monocytes % (Manual) Basophils % (Manual) Nucleated RBC % Seg Neutrophils # Seg Neutrophils # Man Lymphocytes # (Manual) Monocytes # (Manual) Eosinophils # (Manual) Basophils # (Manual) PT INR APTT Heparin Anti-Xa Level POC ABG pH POC ABG pCO2 POC ABG pO2 Sodium Potassium Chloride Carbon Dioxide BUN Creatinine Glucose POC Glucose 229 H 226 H 226 H Calcium Phosphorus Magnesium AST Alkaline Phosphatase Troponin T C-Reactive Protein Total Protein Albumin Triglycerides HDL Cholesterol Lipase Vitamin B12 TSH Urine WBC (Auto) Urine Chloride Urine Total Protein Vancomycin Trough Crossmatch 11/26/16 11/26/16 11/26/16 05:43 12:05 17:05 WBC RBC Hgb Hct MCV RDW Plt Count Lymph % (Auto) Wells % (Auto) Wells # Seg Neutrophils % Seg Neuts % (Manual) Lymphocytes % (Manual) Monocytes % (Manual) Basophils % (Manual) Nucleated RBC % Seg Neutrophils # Seg Neutrophils # Man Lymphocytes # (Manual) Monocytes # (Manual) Eosinophils # (Manual) Basophils # (Manual) PT INR APTT Heparin Anti-Xa Level POC ABG pH POC ABG pCO2 POC ABG pO2 Sodium Potassium Chloride Carbon Dioxide BUN Creatinine Glucose POC Glucose 262 H 260 H 193 H Calcium Phosphorus Magnesium AST Alkaline Phosphatase Troponin T C-Reactive Protein Total Protein Albumin Triglycerides HDL Cholesterol Lipase Vitamin B12 TSH Urine WBC (Auto) Urine Chloride Urine Total Protein Vancomycin Trough Crossmatch 11/26/16 11/27/16 11/27/16 23:46 05:49 12:36 WBC RBC Hgb Hct MCV RDW Plt Count Lymph % (Auto) Wells % (Auto) Wells # Seg Neutrophils % Seg Neuts % (Manual) Lymphocytes % (Manual) Monocytes % (Manual) Basophils % (Manual) Nucleated RBC % Seg Neutrophils # Seg Neutrophils # Man Lymphocytes # (Manual) Monocytes # (Manual) Eosinophils # (Manual) Basophils # (Manual) PT INR APTT Heparin Anti-Xa Level POC ABG pH POC ABG pCO2 POC ABG pO2 Sodium Potassium Chloride Carbon Dioxide BUN Creatinine Glucose POC Glucose 183 H 182 H 250 H Calcium Phosphorus Magnesium AST Alkaline Phosphatase Troponin T C-Reactive Protein Total Protein Albumin Triglycerides HDL Cholesterol Lipase Vitamin B12 TSH Urine WBC (Auto) Urine Chloride Urine Total Protein Vancomycin Trough Crossmatch 11/27/16 11/27/16 11/27/16 17:02 17:45 22:42 WBC RBC Hgb Hct MCV RDW Plt Count Lymph % (Auto) Wells % (Auto) Wells # Seg Neutrophils % Seg Neuts % (Manual) Lymphocytes % (Manual) Monocytes % (Manual) Basophils % (Manual) Nucleated RBC % Seg Neutrophils # Seg Neutrophils # Man Lymphocytes # (Manual) Monocytes # (Manual) Eosinophils # (Manual) Basophils # (Manual) PT INR APTT Heparin Anti-Xa Level POC ABG pH 7.331 L POC ABG pCO2 POC ABG pO2 46 L Sodium Potassium Chloride Carbon Dioxide BUN Creatinine Glucose POC Glucose 275 H Calcium Phosphorus Magnesium AST Alkaline Phosphatase Troponin T 0.093 H C-Reactive Protein Total Protein Albumin Triglycerides HDL Cholesterol Lipase Vitamin B12 TSH Urine WBC (Auto) Urine Chloride Urine Total Protein Vancomycin Trough Crossmatch 11/27/16 11/28/16 11/28/16 23:28 05:46 05:46 WBC RBC 2.88 L Hgb 8.9 L Hct 27.7 L MCV RDW 17.2 H Plt Count Lymph % (Auto) Wells % (Auto) Wells # Seg Neutrophils % Seg Neuts % (Manual) Lymphocytes % (Manual) Monocytes % (Manual) Basophils % (Manual) Nucleated RBC % Seg Neutrophils # Seg Neutrophils # Man Lymphocytes # (Manual) Monocytes # (Manual) Eosinophils # (Manual) Basophils # (Manual) PT 15.1 H INR 1.20 H APTT Heparin Anti-Xa Level POC ABG pH POC ABG pCO2 POC ABG pO2 Sodium Potassium Chloride Carbon Dioxide BUN Creatinine Glucose POC Glucose 237 H Calcium Phosphorus Magnesium AST Alkaline Phosphatase Troponin T C-Reactive Protein Total Protein Albumin Triglycerides HDL Cholesterol Lipase Vitamin B12 TSH Urine WBC (Auto) Urine Chloride Urine Total Protein Vancomycin Trough Crossmatch 11/28/16 11/28/16 11/28/16 05:46 05:46 05:56 WBC RBC Hgb Hct MCV RDW Plt Count Lymph % (Auto) Wells % (Auto) Wells # Seg Neutrophils % Seg Neuts % (Manual) Lymphocytes % (Manual) Monocytes % (Manual) Basophils % (Manual) Nucleated RBC % Seg Neutrophils # Seg Neutrophils # Man Lymphocytes # (Manual) Monocytes # (Manual) Eosinophils # (Manual) Basophils # (Manual) PT INR APTT Heparin Anti-Xa Level POC ABG pH POC ABG pCO2 POC ABG pO2 Sodium Potassium Chloride Carbon Dioxide 21 L BUN 27 H Creatinine Glucose 237 H POC Glucose 275 H Calcium 8.1 L Phosphorus Magnesium AST Alkaline Phosphatase Troponin T 0.090 H C-Reactive Protein Total Protein Albumin Triglycerides 154 H HDL Cholesterol 38 L Lipase Vitamin B12 TSH Urine WBC (Auto) Urine Chloride Urine Total Protein Vancomycin Trough Crossmatch 11/28/16 11/28/16 11/28/16 11:20 18:16 23:30 WBC RBC Hgb Hct MCV RDW Plt Count Lymph % (Auto) Wells % (Auto) Wells # Seg Neutrophils % Seg Neuts % (Manual) Lymphocytes % (Manual) Monocytes % (Manual) Basophils % (Manual) Nucleated RBC % Seg Neutrophils # Seg Neutrophils # Man Lymphocytes # (Manual) Monocytes # (Manual) Eosinophils # (Manual) Basophils # (Manual) PT INR APTT Heparin Anti-Xa Level POC ABG pH POC ABG pCO2 POC ABG pO2 Sodium Potassium Chloride Carbon Dioxide BUN Creatinine Glucose POC Glucose 277 H 222 H 143 H Calcium Phosphorus Magnesium AST Alkaline Phosphatase Troponin T C-Reactive Protein Total Protein Albumin Triglycerides HDL Cholesterol Lipase Vitamin B12 TSH Urine WBC (Auto) Urine Chloride Urine Total Protein Vancomycin Trough Crossmatch 11/29/16 11/29/16 11/29/16 04:46 05:42 12:10 WBC RBC Hgb Hct MCV RDW Plt Count Lymph % (Auto) Wells % (Auto) Wells # Seg Neutrophils % Seg Neuts % (Manual) Lymphocytes % (Manual) Monocytes % (Manual) Basophils % (Manual) Nucleated RBC % Seg Neutrophils # Seg Neutrophils # Man Lymphocytes # (Manual) Monocytes # (Manual) Eosinophils # (Manual) Basophils # (Manual) PT 16.7 H INR 1.36 H APTT Heparin Anti-Xa Level POC ABG pH POC ABG pCO2 POC ABG pO2 Sodium Potassium Chloride Carbon Dioxide BUN Creatinine Glucose POC Glucose 165 H 232 H Calcium Phosphorus Magnesium AST Alkaline Phosphatase Troponin T C-Reactive Protein Total Protein Albumin Triglycerides HDL Cholesterol Lipase Vitamin B12 TSH Urine WBC (Auto) Urine Chloride Urine Total Protein Vancomycin Trough Crossmatch 11/29/16 11/30/16 11/30/16 18:09 00:04 05:04 WBC RBC Hgb Hct MCV RDW Plt Count Lymph % (Auto) Wells % (Auto) Wells # Seg Neutrophils % Seg Neuts % (Manual) Lymphocytes % (Manual) Monocytes % (Manual) Basophils % (Manual) Nucleated RBC % Seg Neutrophils # Seg Neutrophils # Man Lymphocytes # (Manual) Monocytes # (Manual) Eosinophils # (Manual) Basophils # (Manual) PT 17.8 H INR 1.47 H APTT Heparin Anti-Xa Level POC ABG pH POC ABG pCO2 POC ABG pO2 Sodium Potassium Chloride Carbon Dioxide BUN Creatinine Glucose POC Glucose 214 H 110 H Calcium Phosphorus Magnesium AST Alkaline Phosphatase Troponin T C-Reactive Protein Total Protein Albumin Triglycerides HDL Cholesterol Lipase Vitamin B12 TSH Urine WBC (Auto) Urine Chloride Urine Total Protein Vancomycin Trough Crossmatch 11/30/16 11/30/16 11/30/16 05:46 11:59 17:51 WBC RBC Hgb Hct MCV RDW Plt Count Lymph % (Auto) Wells % (Auto) Wells # Seg Neutrophils % Seg Neuts % (Manual) Lymphocytes % (Manual) Monocytes % (Manual) Basophils % (Manual) Nucleated RBC % Seg Neutrophils # Seg Neutrophils # Man Lymphocytes # (Manual) Monocytes # (Manual) Eosinophils # (Manual) Basophils # (Manual) PT INR APTT Heparin Anti-Xa Level POC ABG pH POC ABG pCO2 POC ABG pO2 Sodium Potassium Chloride Carbon Dioxide BUN Creatinine Glucose POC Glucose 118 H 163 H 134 H Calcium Phosphorus Magnesium AST Alkaline Phosphatase Troponin T C-Reactive Protein Total Protein Albumin Triglycerides HDL Cholesterol Lipase Vitamin B12 TSH Urine WBC (Auto) Urine Chloride Urine Total Protein Vancomycin Trough Crossmatch 11/30/16 12/01/16 12/01/16 23:48 05:43 07:25 WBC RBC Hgb Hct MCV RDW Plt Count Lymph % (Auto) Wells % (Auto) [place] # Seg Neutrophils % Seg Neuts % (Manual) Lymphocytes % (Manual) Monocytes % (Manual) Basophils % (Manual) Nucleated RBC % Seg Neutrophils # Seg Neutrophils # Man Lymphocytes # (Manual) Monocytes # (Manual) Eosinophils # (Manual) Basophils # (Manual) PT 19.6 H INR 1.66 H APTT Heparin Anti-Xa Level POC ABG pH POC ABG pCO2 POC ABG pO2 Sodium Potassium Chloride Carbon Dioxide BUN Creatinine Glucose POC Glucose 127 H 161 H Calcium Phosphorus Magnesium AST Alkaline Phosphatase Troponin T C-Reactive Protein Total Protein Albumin Triglycerides HDL Cholesterol Lipase Vitamin B12 TSH Urine WBC (Auto) Urine Chloride Urine Total Protein Vancomycin Trough Crossmatch 12/01/16 12/01/16 12/01/16 11:45 17:24 23:42 WBC RBC Hgb Hct MCV RDW Plt Count Lymph % (Auto) Wells % (Auto) Wells # Seg Neutrophils % Seg Neuts % (Manual) Lymphocytes % (Manual) Monocytes % (Manual) Basophils % (Manual) Nucleated RBC % Seg Neutrophils # Seg Neutrophils # Man Lymphocytes # (Manual) Monocytes # (Manual) Eosinophils # (Manual) Basophils # (Manual) PT INR APTT Heparin Anti-Xa Level POC ABG pH POC ABG pCO2 POC ABG pO2 Sodium Potassium Chloride Carbon Dioxide BUN Creatinine Glucose POC Glucose 187 H 113 H 132 H Calcium Phosphorus Magnesium AST Alkaline Phosphatase Troponin T C-Reactive Protein Total Protein Albumin Triglycerides HDL Cholesterol Lipase Vitamin B12 TSH Urine WBC (Auto) Urine Chloride Urine Total Protein Vancomycin Trough Crossmatch 12/02/16 12/02/16 12/02/16 05:07 05:14 13:59 WBC RBC Hgb 7.9 L Hct 25.1 L MCV RDW Plt Count Lymph % (Auto) Wells % (Auto) [place] # Seg Neutrophils % Seg Neuts % (Manual) Lymphocytes % (Manual) Monocytes % (Manual) Basophils % (Manual) Nucleated RBC % Seg Neutrophils # Seg Neutrophils # Man Lymphocytes # (Manual) Monocytes # (Manual) Eosinophils # (Manual) Basophils # (Manual) PT 20.3 H INR 1.74 H APTT Heparin Anti-Xa Level POC ABG pH POC ABG pCO2 POC ABG pO2 Sodium Potassium Chloride Carbon Dioxide BUN Creatinine Glucose POC Glucose 172 H Calcium Phosphorus Magnesium AST Alkaline Phosphatase Troponin T C-Reactive Protein Total Protein Albumin Triglycerides HDL Cholesterol Lipase Vitamin B12 TSH Urine WBC (Auto) Urine Chloride Urine Total Protein Vancomycin Trough Crossmatch Allied health notes reviewed: RT
[2016-12-02] MEDS ORDERED: COUMADIN PO SCH (17:00)
[2016-12-03] MEDS: DILANTIN IV SCH ×3 (05:32→22:45)
[2016-12-03 06:08] LABS: INR 1.66 (0.87-1.13)
[2016-12-03] MEDS: LOPRESSOR PO SCH ×3 (09:00→22:45)
[2016-12-03] MEDS: PLAVIX PO SCH (09:27)
[2016-12-03] MEDS: PEPCID PO SCH ×2 (09:27→22:45)
[2016-12-03] MEDS: ZESTRIL PO SCH (09:27)
[2016-12-03] MEDS: LEVEMIR SUB-Q SCH (09:27)
--- NOTE | 2016-12-03 10:31 | Progress Note ---
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 weaning likelyhood even poorer - continue PSV trials as tolerated - continue to rest on AC qhs during wean - repeat CXR in am +/- resume diuresis (2) Altered mental status Current Visit: Yes Status: Acute Qualifiers: Altered mental status type: A Coma depth: C Coma timing: C Plan to address problem: - likely anoxic encephalopathy at this point - no active grand-mal seizures - seen by neurology and will follow their recommendations - reviewed EEG and MRI reports and appears overall prognosis guarded at best (3) LUCY (acute kidney injury) Current Visit: Yes Status: Acute Plan to address problem: - resolved - following I's & O's - tube feeds restarted and tolerating well so far - will resume diuresis in am if CXR confirms persistent pulmonary edema picture (4) DKA (diabetic ketoacidoses) Current Visit: Yes Status: Acute Qualifiers: Diabetes mellitus type: D Diabetes mellitus complication detail: D Plan to address problem: - resolved - continue SSI - continue levemir (5) Sepsis Current Visit: No Status: Acute Qualifiers: Sepsis type: S Plan to address problem: - off antibiotics now - follow clinically - trend lactate and CRP prn (6) Emesis Current Visit: Yes Status: Acute Qualifiers: Vomiting type: V Vomiting Intractability: V Nausea presence: N Plan to address problem: - continue increased reglan dose - reduced fentanyl dose and using other sedatives/anxiolytics (re: opiates and G.I. motility) - continue aspiration precautions - GI input appreciated - resolved (7) Discharge planning issues Current Visit: Yes Status: Acute Plan to address problem: - cardiac arrest and potential anoxic encephalopathy makes prognosis more guarded now - LTAC evaluation ongoing still ...for now remains critically ill on life sustaining treatments including MVS and at high risk for further deterioration including ...30' CCT Subjective Date of service: 12/03/16 Principal diagnosis: respiratory failure on mechanical ventilatory support, DKA Interval history: Seen and examined at bedside; 24 hour events reviewed; nursing and respiratory care staff consulted; no adverse overnight events reported to me; remains on MVS ; weaning tenuously still; on PSV 20/5; AMS is persistent but slightly more responsive since most recent code blue clinically Objective Vital Signs - 12hr 12/02/16 12/02/16 12/03/16 23:00 23:30 00:00 Temperature 99.3 F Pulse Rate 71 73 75 Pulse Rate [ From Monitor] Respiratory 14 25 H 22 Rate Blood Pressure 136/55 132/57 141/68 O2 Sat by Pulse 100 100 100 Oximetry O2 Sat by Pulse 100 Oximetry [ Assessment] 12/03/16 12/03/16 12/03/16 00:30 01:00 01:30 Temperature Pulse Rate 82 82 84 Pulse Rate [ From Monitor] Respiratory 29 H 24 29 H Rate Blood Pressure 153/73 153/73 153/69 O2 Sat by Pulse 100 100 100 Oximetry O2 Sat by Pulse Oximetry [ Assessment] 12/03/16 12/03/16 12/03/16 02:00 02:30 03:00 Temperature Pulse Rate 85 80 80 Pulse Rate [ From Monitor] Respiratory 28 H 16 23 Rate Blood Pressure 153/70 137/59 141/58 O2 Sat by Pulse 100 100 100 Oximetry O2 Sat by Pulse Oximetry [ Assessment] 12/03/16 12/03/16 12/03/16 03:30 04:00 04:30 Temperature 98.8 F Pulse Rate 86 87 87 Pulse Rate [ From Monitor] Respiratory 28 H 19 18 Rate Blood Pressure 152/69 156/69 151/66 O2 Sat by Pulse 100 100 100 Oximetry O2 Sat by Pulse Oximetry [ Assessment] 12/03/16 12/03/16 12/03/16 05:00 05:30 06:00 Temperature Pulse Rate 84 87 83 Pulse Rate [ From Monitor] Respiratory 21 25 H 25 H Rate Blood Pressure 150/63 153/72 138/61 O2 Sat by Pulse 100 100 100 Oximetry O2 Sat by Pulse Oximetry [ Assessment] 12/03/16 12/03/16 12/03/16 06:30 07:00 07:05 Temperature Pulse Rate 85 83 90 Pulse Rate [ From Monitor] Respiratory 26 H 28 H 32 H Rate Blood Pressure 153/67 146/63 O2 Sat by Pulse 100 100 98 Oximetry O2 Sat by Pulse Oximetry [ Assessment] 12/03/16 12/03/16 12/03/16 07:25 07:30 08:00 Temperature 98.8 F Pulse Rate 89 92 H Pulse Rate [ 93 H From Monitor] Respiratory 29 H 34 H Rate Blood Pressure 159/69 163/70 O2 Sat by Pulse 100 98 Oximetry O2 Sat by Pulse 98 Oximetry [ Assessment] 12/03/16 12/03/16 12/03/16 08:30 09:00 09:27 Temperature Pulse Rate 93 H 95 H 96 H Pulse Rate [ From Monitor] Respiratory 34 H Rate Blood Pressure 156/65 155/64 155/64 O2 Sat by Pulse 96 Oximetry O2 Sat by Pulse Oximetry [ Assessment] Constitutional: no acute distress, other ( Patient likely has anoxic encephalopathy, s/p trach to vent) Eyes: non-icteric ENT: oropharynx moist Neck: supple, no lymphadenopathy, no JVD Effort: mildly labored Ascultation: Bilateral: diminished breath sounds, rales Cardiovascular: regular rate and rhythm, other (S1,S2, No murmurs) Gastrointestinal: normoactive bowel sounds, soft, non-distended, other ( Gastrostomy tube) Integumentary: normal Extremities: no cyanosis, no edema, no ischemia or petechiae, other (s/p right BKA. right UExt Edema) Neurologic: unable to assess, other (encephalopathic) Psychiatric: other (encephalopathic) CBC and BMP: 12/02/16 13:59 12/04/16 13:12 ABG, PT/INR, D-dimer: ABG POC ABG pH 7.331 (7.35-7.45) L 11/27/16 17:45 POC ABG pCO2 38.1 (35-45) 11/27/16 17:45 POC ABG pO2 46 (80-105) L 11/27/16 17:45 POC ABG HCO3 20.1 11/27/16 17:45 POC ABG Total CO2 21 11/27/16 17:45 POC ABG O2 Sat 79 11/27/16 17:45 PT/INR, D-dimer PT 19.6 Sec. (12.2-14.9) H 12/03/16 05:27 INR 1.66 (0.87-1.13) H 12/03/16 05:27 Abnormal lab findings: Abnormal Labs 10/13/16 10/13/16 10/13/16 06:38 06:38 07:23 WBC RBC Hgb Hct MCV RDW Plt Count Lymph % (Auto) [place] % (Auto) [place] # Seg Neutrophils % Seg Neuts % (Manual) Lymphocytes % (Manual) Monocytes % (Manual) Basophils % (Manual) Nucleated RBC % Seg Neutrophils # Seg Neutrophils # Man Lymphocytes # (Manual) Monocytes # (Manual) Eosinophils # (Manual) Basophils # (Manual) PT INR APTT Heparin Anti-Xa Level POC ABG pH POC ABG pCO2 POC ABG pO2 Sodium Potassium 6.2 H* Chloride Carbon Dioxide 8 L* BUN 85 H Creatinine 2.8 H Glucose 602 H* POC Glucose 495 H Calcium 7.9 L Phosphorus 6.9 H D Magnesium 3.0 H AST Alkaline Phosphatase Troponin T C-Reactive Protein Total Protein Albumin Triglycerides HDL Cholesterol Lipase Vitamin B12 TSH Urine WBC (Auto) Urine Chloride Urine Total Protein Vancomycin Trough Crossmatch 10/13/16 10/13/16 10/13/16 08:49 08:55 10:12 WBC RBC Hgb Hct MCV RDW Plt Count Lymph % (Auto) [place] % (Auto) [place] # Seg Neutrophils % Seg Neuts % (Manual) Lymphocytes % (Manual) Monocytes % (Manual) Basophils % (Manual) Nucleated RBC % Seg Neutrophils # Seg Neutrophils # Man Lymphocytes # (Manual) Monocytes # (Manual) Eosinophils # (Manual) Basophils # (Manual) PT INR APTT Heparin Anti-Xa Level POC ABG pH POC ABG pCO2 POC ABG pO2 Sodium Potassium 5.6 H Chloride Carbon Dioxide 11 L BUN 77 H Creatinine 2.7 H Glucose 457 H POC Glucose > 500 H 424 H Calcium 8.0 L Phosphorus Magnesium AST Alkaline Phosphatase Troponin T C-Reactive Protein Total Protein Albumin Triglycerides HDL Cholesterol Lipase Vitamin B12 TSH Urine WBC (Auto) Urine Chloride Urine Total Protein Vancomycin Trough Crossmatch 10/13/16 10/13/16 10/13/16 10:44 11:22 12:20 WBC RBC Hgb Hct MCV RDW Plt Count Lymph % (Auto) [place] % (Auto) [place] # Seg Neutrophils % Seg Neuts % (Manual) Lymphocytes % (Manual) Monocytes % (Manual) Basophils % (Manual) Nucleated RBC % Seg Neutrophils # Seg Neutrophils # Man Lymphocytes # (Manual) Monocytes # (Manual) Eosinophils # (Manual) Basophils # (Manual) PT INR APTT Heparin Anti-Xa Level POC ABG pH POC ABG pCO2 POC ABG pO2 Sodium Potassium 5.4 H Chloride Carbon Dioxide 14 L BUN 72 H Creatinine 2.6 H Glucose 383 H POC Glucose 391 H 313 H Calcium 8.2 L Phosphorus Magnesium AST Alkaline Phosphatase Troponin T C-Reactive Protein Total Protein Albumin Triglycerides HDL Cholesterol Lipase Vitamin B12 TSH Urine WBC (Auto) Urine Chloride Urine Total Protein Vancomycin Trough Crossmatch 10/13/16 10/13/16 10/13/16 13:32 14:44 15:57 WBC RBC Hgb Hct MCV RDW Plt Count Lymph % (Auto) [place] % (Auto) [place] # Seg Neutrophils % Seg Neuts % (Manual) Lymphocytes % (Manual) Monocytes % (Manual) Basophils % (Manual) Nucleated RBC % Seg Neutrophils # Seg Neutrophils # Man Lymphocytes # (Manual) Monocytes # (Manual) Eosinophils # (Manual) Basophils # (Manual) PT INR APTT Heparin Anti-Xa Level POC ABG pH POC ABG pCO2 POC ABG pO2 Sodium Potassium Chloride Carbon Dioxide BUN Creatinine Glucose POC Glucose 296 H 210 H 190 H Calcium Phosphorus Magnesium AST Alkaline Phosphatase Troponin T C-Reactive Protein Total Protein Albumin Triglycerides HDL Cholesterol Lipase Vitamin B12 TSH Urine WBC (Auto) Urine Chloride Urine Total Protein Vancomycin Trough Crossmatch 10/13/16 10/13/16 10/13/16 16:14 16:14 17:17 WBC RBC Hgb Hct MCV RDW Plt Count Lymph % (Auto) [place] % (Auto) [place] # Seg Neutrophils % Seg Neuts % (Manual) Lymphocytes % (Manual) Monocytes % (Manual) Basophils % (Manual) Nucleated RBC % Seg Neutrophils # Seg Neutrophils # Man Lymphocytes # (Manual) Monocytes # (Manual) Eosinophils # (Manual) Basophils # (Manual) PT INR APTT Heparin Anti-Xa Level POC ABG pH POC ABG pCO2 POC ABG pO2 Sodium Potassium Chloride Carbon Dioxide 17 L BUN 58 H Creatinine 1.8 H Glucose 172 H POC Glucose 193 H Calcium 7.7 L Phosphorus Magnesium AST Alkaline Phosphatase Troponin T C-Reactive Protein 10.50 H Total Protein Albumin Triglycerides HDL Cholesterol Lipase Vitamin B12 TSH Urine WBC (Auto) Urine Chloride Urine Total Protein Vancomycin Trough Crossmatch 10/13/16 10/13/16 10/13/16 17:55 18:32 19:41 WBC RBC Hgb Hct MCV RDW Plt Count Lymph % (Auto) [place] % (Auto) [place] # Seg Neutrophils % Seg Neuts % (Manual) Lymphocytes % (Manual) Monocytes % (Manual) Basophils % (Manual) Nucleated RBC % Seg Neutrophils # Seg Neutrophils # Man Lymphocytes # (Manual) Monocytes # (Manual) Eosinophils # (Manual) Basophils # (Manual) PT INR APTT Heparin Anti-Xa Level POC ABG pH POC ABG pCO2 30.6 L POC ABG pO2 218 H Sodium Potassium Chloride Carbon Dioxide BUN Creatinine Glucose POC Glucose 192 H 177 H Calcium Phosphorus Magnesium AST Alkaline Phosphatase Troponin T C-Reactive Protein Total Protein Albumin Triglycerides HDL Cholesterol Lipase Vitamin B12 TSH Urine WBC (Auto) Urine Chloride Urine Total Protein Vancomycin Trough Crossmatch 10/13/16 10/13/16 10/13/16 20:54 22:07 23:13 WBC RBC Hgb Hct MCV RDW Plt Count Lymph % (Auto) [place] % (Auto) [place] # Seg Neutrophils % Seg Neuts % (Manual) Lymphocytes % (Manual) Monocytes % (Manual) Basophils % (Manual) Nucleated RBC % Seg Neutrophils # Seg Neutrophils # Man Lymphocytes # (Manual) Monocytes # (Manual) Eosinophils # (Manual) Basophils # (Manual) PT INR APTT Heparin Anti-Xa Level POC ABG pH POC ABG pCO2 POC ABG pO2 Sodium Potassium Chloride Carbon Dioxide BUN Creatinine Glucose POC Glucose 178 H 160 H 168 H Calcium Phosphorus Magnesium AST Alkaline Phosphatase Troponin T C-Reactive Protein Total Protein Albumin Triglycerides HDL Cholesterol Lipase Vitamin B12 TSH Urine WBC (Auto) Urine Chloride Urine Total Protein Vancomycin Trough Crossmatch 10/13/16 10/13/16 10/14/16 23:25 Unknown 00:21 WBC RBC Hgb Hct MCV RDW Plt Count Lymph % (Auto) [place] % (Auto) [place] # Seg Neutrophils % Seg Neuts % (Manual) Lymphocytes % (Manual) Monocytes % (Manual) Basophils % (Manual) Nucleated RBC % Seg Neutrophils # Seg Neutrophils # Man Lymphocytes # (Manual) Monocytes # (Manual) Eosinophils # (Manual) Basophils # (Manual) PT INR APTT Heparin Anti-Xa Level POC ABG pH POC ABG pCO2 POC ABG pO2 Sodium 148 H Potassium Chloride 114.6 H Carbon Dioxide 17 L BUN 56 H Creatinine 1.6 H Glucose 151 H POC Glucose 171 H Calcium 7.8 L Phosphorus Magnesium AST Alkaline Phosphatase Troponin T C-Reactive Protein Total Protein Albumin Triglycerides HDL Cholesterol Lipase Vitamin B12 TSH Urine WBC (Auto) Urine Chloride 10.0 L Urine Total Protein < 4 L Vancomycin Trough Crossmatch 10/14/16 10/14/16 10/14/16 01:22 02:29 03:30 WBC RBC Hgb Hct MCV RDW Plt Count Lymph % (Auto) [place] % (Auto) [place] # Seg Neutrophils % Seg Neuts % (Manual) Lymphocytes % (Manual) Monocytes % (Manual) Basophils % (Manual) Nucleated RBC % Seg Neutrophils # Seg Neutrophils # Man Lymphocytes # (Manual) Monocytes # (Manual) Eosinophils # (Manual) Basophils # (Manual) PT INR APTT Heparin Anti-Xa Level POC ABG pH POC ABG pCO2 POC ABG pO2 Sodium Potassium Chloride Carbon Dioxide BUN Creatinine Glucose POC Glucose 144 H 136 H 143 H Calcium Phosphorus Magnesium AST Alkaline Phosphatase Troponin T C-Reactive Protein Total Protein Albumin Triglycerides HDL Cholesterol Lipase Vitamin B12 TSH Urine WBC (Auto) Urine Chloride Urine Total Protein Vancomycin Trough Crossmatch 10/14/16 10/14/16 10/14/16 04:28 05:16 05:44 WBC RBC Hgb Hct MCV RDW Plt Count Lymph % (Auto) [place] % (Auto) [place] # Seg Neutrophils % Seg Neuts % (Manual) Lymphocytes % (Manual) Monocytes % (Manual) Basophils % (Manual) Nucleated RBC % Seg Neutrophils # Seg Neutrophils # Man Lymphocytes # (Manual) Monocytes # (Manual) Eosinophils # (Manual) Basophils # (Manual) PT INR APTT Heparin Anti-Xa Level POC ABG pH POC ABG pCO2 28.2 L POC ABG pO2 125 H Sodium Potassium Chloride Carbon Dioxide BUN Creatinine Glucose POC Glucose 133 H 160 H Calcium Phosphorus Magnesium AST Alkaline Phosphatase Troponin T C-Reactive Protein Total Protein Albumin Triglycerides HDL Cholesterol Lipase Vitamin B12 TSH Urine WBC (Auto) Urine Chloride Urine Total Protein Vancomycin Trough Crossmatch 10/14/16 10/14/16 10/14/16 06:12 06:45 07:03 WBC RBC Hgb Hct MCV RDW Plt Count Lymph % (Auto) [place] % (Auto) [place] # Seg Neutrophils % Seg Neuts % (Manual) Lymphocytes % (Manual) Monocytes % (Manual) Basophils % (Manual) Nucleated RBC % Seg Neutrophils # Seg Neutrophils # Man Lymphocytes # (Manual) Monocytes # (Manual) Eosinophils # (Manual) Basophils # (Manual) PT INR APTT Heparin Anti-Xa Level POC ABG pH POC ABG pCO2 POC ABG pO2 Sodium 149 H Potassium Chloride 115.4 H Carbon Dioxide 17 L BUN 45 H Creatinine 1.5 H Glucose 139 H POC Glucose 149 H Calcium 7.4 L Phosphorus 1.0 L D Magnesium AST Alkaline Phosphatase Troponin T C-Reactive Protein Total Protein Albumin Triglycerides HDL Cholesterol Lipase Vitamin B12 TSH Urine WBC (Auto) Urine Chloride Urine Total Protein Vancomycin Trough Crossmatch 10/14/16 10/14/16 10/14/16 07:03 08:02 09:16 WBC RBC Hgb Hct MCV RDW Plt Count Lymph % (Auto) [place] % (Auto) [place] # Seg Neutrophils % Seg Neuts % (Manual) Lymphocytes % (Manual) Monocytes % (Manual) Basophils % (Manual) Nucleated RBC % Seg Neutrophils # Seg Neutrophils # Man Lymphocytes # (Manual) Monocytes # (Manual) Eosinophils # (Manual) Basophils # (Manual) PT INR APTT Heparin Anti-Xa Level POC ABG pH POC ABG pCO2 POC ABG pO2 Sodium Potassium Chloride Carbon Dioxide BUN Creatinine Glucose POC Glucose 156 H 158 H Calcium Phosphorus Magnesium AST Alkaline Phosphatase Troponin T C-Reactive Protein Total Protein Albumin Triglycerides HDL Cholesterol Lipase 738 H Vitamin B12 TSH Urine WBC (Auto) Urine Chloride Urine Total Protein Vancomycin Trough Crossmatch 10/14/16 10/14/16 10/14/16 10:26 11:03 11:57 WBC RBC Hgb Hct MCV RDW Plt Count Lymph % (Auto) [place] % (Auto) [place] # Seg Neutrophils % Seg Neuts % (Manual) Lymphocytes % (Manual) Monocytes % (Manual) Basophils % (Manual) Nucleated RBC % Seg Neutrophils # Seg Neutrophils # Man Lymphocytes # (Manual) Monocytes # (Manual) Eosinophils # (Manual) Basophils # (Manual) PT INR APTT Heparin Anti-Xa Level POC ABG pH 7.198 L POC ABG pCO2 47.5 H POC ABG pO2 Sodium Potassium Chloride Carbon Dioxide BUN Creatinine Glucose POC Glucose 174 H 189 H Calcium Phosphorus Magnesium AST Alkaline Phosphatase Troponin T C-Reactive Protein Total Protein Albumin Triglycerides HDL Cholesterol Lipase Vitamin B12 TSH Urine WBC (Auto) Urine Chloride Urine Total Protein Vancomycin Trough Crossmatch 10/14/16 10/14/16 10/14/16 12:02 12:02 13:11 WBC 13.4 H RBC 3.60 L Hgb Hct MCV 98 H D RDW 13.1 L Plt Count Lymph % (Auto) [place] % (Auto) [place] # Seg Neutrophils % Seg Neuts % (Manual) Lymphocytes % (Manual) Monocytes % (Manual) Basophils % (Manual) Nucleated RBC % Seg Neutrophils # Seg Neutrophils # Man Lymphocytes # (Manual) Monocytes # (Manual) Eosinophils # (Manual) Basophils # (Manual) PT INR APTT Heparin Anti-Xa Level POC ABG pH POC ABG pCO2 POC ABG pO2 Sodium Potassium Chloride 110.7 H Carbon Dioxide 19 L BUN 38 H Creatinine 1.4 H Glucose 182 H POC Glucose 173 H Calcium 7.5 L Phosphorus Magnesium AST Alkaline Phosphatase Troponin T C-Reactive Protein Total Protein Albumin Triglycerides HDL Cholesterol Lipase Vitamin B12 TSH Urine WBC (Auto) Urine Chloride Urine Total Protein Vancomycin Trough Crossmatch 10/14/16 10/14/16 10/14/16 14:24 15:31 16:36 WBC RBC Hgb Hct MCV RDW Plt Count Lymph % (Auto) [place] % (Auto) [place] # Seg Neutrophils % Seg Neuts % (Manual) Lymphocytes % (Manual) Monocytes % (Manual) Basophils % (Manual) Nucleated RBC % Seg Neutrophils # Seg Neutrophils # Man Lymphocytes # (Manual) Monocytes # (Manual) Eosinophils # (Manual) Basophils # (Manual) PT INR APTT Heparin Anti-Xa Level POC ABG pH POC ABG pCO2 POC ABG pO2 Sodium Potassium Chloride Carbon Dioxide BUN Creatinine Glucose POC Glucose 123 H 124 H 156 H Calcium Phosphorus Magnesium AST Alkaline Phosphatase Troponin T C-Reactive Protein Total Protein Albumin Triglycerides HDL Cholesterol Lipase Vitamin B12 TSH Urine WBC (Auto) Urine Chloride Urine Total Protein Vancomycin Trough Crossmatch 10/14/16 10/14/16 10/14/16 17:43 19:00 20:08 WBC RBC Hgb Hct MCV RDW Plt Count Lymph % (Auto) [place] % (Auto) [place] # Seg Neutrophils % Seg Neuts % (Manual) Lymphocytes % (Manual) Monocytes % (Manual) Basophils % (Manual) Nucleated RBC % Seg Neutrophils # Seg Neutrophils # Man Lymphocytes # (Manual) Monocytes # (Manual) Eosinophils # (Manual) Basophils # (Manual) PT INR APTT Heparin Anti-Xa Level POC ABG pH POC ABG pCO2 POC ABG pO2 Sodium Potassium Chloride Carbon Dioxide BUN Creatinine Glucose POC Glucose 154 H 123 H 138 H Calcium Phosphorus Magnesium AST Alkaline Phosphatase Troponin T C-Reactive Protein Total Protein Albumin Triglycerides HDL Cholesterol Lipase Vitamin B12 TSH Urine WBC (Auto) Urine Chloride Urine Total Protein Vancomycin Trough Crossmatch 10/14/16 10/14/16 10/14/16 21:17 22:25 23:37 WBC RBC Hgb Hct MCV RDW Plt Count Lymph % (Auto) [place] % (Auto) [place] # Seg Neutrophils % Seg Neuts % (Manual) Lymphocytes % (Manual) Monocytes % (Manual) Basophils % (Manual) Nucleated RBC % Seg Neutrophils # Seg Neutrophils # Man Lymphocytes # (Manual) Monocytes # (Manual) Eosinophils # (Manual) Basophils # (Manual) PT INR APTT Heparin Anti-Xa Level POC ABG pH POC ABG pCO2 POC ABG pO2 Sodium Potassium Chloride Carbon Dioxide BUN Creatinine Glucose POC Glucose 148 H 132 H 137 H Calcium Phosphorus Magnesium AST Alkaline Phosphatase Troponin T C-Reactive Protein Total Protein Albumin Triglycerides HDL Cholesterol Lipase Vitamin B12 TSH Urine WBC (Auto) Urine Chloride Urine Total Protein Vancomycin Trough Crossmatch 10/15/16 10/15/16 10/15/16 00:49 01:53 03:06 WBC RBC Hgb Hct MCV RDW Plt Count Lymph % (Auto) [place] % (Auto) [place] # Seg Neutrophils % Seg Neuts % (Manual) Lymphocytes % (Manual) Monocytes % (Manual) Basophils % (Manual) Nucleated RBC % Seg Neutrophils # Seg Neutrophils # Man Lymphocytes # (Manual) Monocytes # (Manual) Eosinophils # (Manual) Basophils # (Manual) PT INR APTT Heparin Anti-Xa Level POC ABG pH POC ABG pCO2 POC ABG pO2 Sodium Potassium Chloride Carbon Dioxide BUN Creatinine Glucose POC Glucose 132 H 134 H 134 H Calcium Phosphorus Magnesium AST Alkaline Phosphatase Troponin T C-Reactive Protein Total Protein Albumin Triglycerides HDL Cholesterol Lipase Vitamin B12 TSH Urine WBC (Auto) Urine Chloride Urine Total Protein Vancomycin Trough Crossmatch 10/15/16 10/15/16 10/15/16 04:40 04:46 06:21 WBC RBC Hgb Hct MCV RDW Plt Count Lymph % (Auto) [place] % (Auto) [place] # Seg Neutrophils % Seg Neuts % (Manual) Lymphocytes % (Manual) Monocytes % (Manual) Basophils % (Manual) Nucleated RBC % Seg Neutrophils # Seg Neutrophils # Man Lymphocytes # (Manual) Monocytes # (Manual) Eosinophils # (Manual) Basophils # (Manual) PT INR APTT Heparin Anti-Xa Level POC ABG pH POC ABG pCO2 30.7 L POC ABG pO2 108 H Sodium Potassium Chloride 109.0 H Carbon Dioxide 17 L BUN 27 H Creatinine Glucose 124 H POC Glucose 160 H Calcium 7.5 L Phosphorus Magnesium AST 79 H Alkaline Phosphatase Troponin T C-Reactive Protein Total Protein 5.5 L Albumin 3.0 L Triglycerides HDL Cholesterol Lipase Vitamin B12 TSH Urine WBC (Auto) Urine Chloride Urine Total Protein Vancomycin Trough Crossmatch 10/15/16 10/15/16 10/15/16 07:12 08:01 09:03 WBC RBC Hgb Hct MCV RDW Plt Count Lymph % (Auto) [place] % (Auto) [place] # Seg Neutrophils % Seg Neuts % (Manual) Lymphocytes % (Manual) Monocytes % (Manual) Basophils % (Manual) Nucleated RBC % Seg Neutrophils # Seg Neutrophils # Man Lymphocytes # (Manual) Monocytes # (Manual) Eosinophils # (Manual) Basophils # (Manual) PT INR APTT Heparin Anti-Xa Level POC ABG pH POC ABG pCO2 POC ABG pO2 Sodium Potassium Chloride Carbon Dioxide BUN Creatinine Glucose POC Glucose 179 H 187 H 165 H Calcium Phosphorus Magnesium AST Alkaline Phosphatase Troponin T C-Reactive Protein Total Protein Albumin Triglycerides HDL Cholesterol Lipase Vitamin B12 TSH Urine WBC (Auto) Urine Chloride Urine Total Protein Vancomycin Trough Crossmatch 10/15/16 10/15/16 10/15/16 10:06 10:06 10:07 WBC 12.1 H RBC 3.01 L Hgb 9.7 L Hct 29.6 L MCV 98 H RDW Plt Count 129 L Lymph % (Auto) [place] % (Auto) [place] # Seg Neutrophils % Seg Neuts % (Manual) Lymphocytes % (Manual) Monocytes % (Manual) Basophils % (Manual) Nucleated RBC % Seg Neutrophils # Seg Neutrophils # Man Lymphocytes # (Manual) Monocytes # (Manual) Eosinophils # (Manual) Basophils # (Manual) PT INR APTT Heparin Anti-Xa Level POC ABG pH POC ABG pCO2 POC ABG pO2 Sodium Potassium 3.2 L D Chloride 109.6 H Carbon Dioxide 18 L BUN 22 H Creatinine Glucose 127 H POC Glucose 147 H Calcium 7.0 L Phosphorus Magnesium AST Alkaline Phosphatase Troponin T C-Reactive Protein Total Protein Albumin Triglycerides HDL Cholesterol Lipase Vitamin B12 TSH Urine WBC (Auto) Urine Chloride Urine Total Protein Vancomycin Trough Crossmatch 10/15/16 10/15/16 10/15/16 11:05 11:06 11:57 WBC RBC Hgb Hct MCV RDW Plt Count Lymph % (Auto) [place] % (Auto) [place] # Seg Neutrophils % Seg Neuts % (Manual) Lymphocytes % (Manual) Monocytes % (Manual) Basophils % (Manual) Nucleated RBC % Seg Neutrophils # Seg Neutrophils # Man Lymphocytes # (Manual) Monocytes # (Manual) Eosinophils # (Manual) Basophils # (Manual) PT INR APTT Heparin Anti-Xa Level POC ABG pH 7.305 L POC ABG pCO2 POC ABG pO2 Sodium Potassium Chloride Carbon Dioxide BUN Creatinine Glucose POC Glucose 145 H Calcium Phosphorus Magnesium AST Alkaline Phosphatase Troponin T C-Reactive Protein Total Protein Albumin Triglycerides HDL Cholesterol Lipase Vitamin B12 TSH Urine WBC (Auto) 7.0 H Urine Chloride Urine Total Protein Vancomycin Trough Crossmatch 10/15/16 10/15/16 10/15/16 12:04 13:59 15:24 WBC RBC Hgb Hct MCV RDW Plt Count Lymph % (Auto) [place] % (Auto) [place] # Seg Neutrophils % Seg Neuts % (Manual) Lymphocytes % (Manual) Monocytes % (Manual) Basophils % (Manual) Nucleated RBC % Seg Neutrophils # Seg Neutrophils # Man Lymphocytes # (Manual) Monocytes # (Manual) Eosinophils # (Manual) Basophils # (Manual) PT INR APTT Heparin Anti-Xa Level POC ABG pH POC ABG pCO2 POC ABG pO2 Sodium Potassium Chloride Carbon Dioxide BUN Creatinine Glucose POC Glucose 123 H 147 H 153 H Calcium Phosphorus Magnesium AST Alkaline Phosphatase Troponin T C-Reactive Protein Total Protein Albumin Triglycerides HDL Cholesterol Lipase Vitamin B12 TSH Urine WBC (Auto) Urine Chloride Urine Total Protein Vancomycin Trough Crossmatch 10/15/16 10/15/16 10/15/16 16:30 17:34 18:30 WBC RBC Hgb Hct MCV RDW Plt Count Lymph % (Auto) [place] % (Auto) [place] # Seg Neutrophils % Seg Neuts % (Manual) Lymphocytes % (Manual) Monocytes % (Manual) Basophils % (Manual) Nucleated RBC % Seg Neutrophils # Seg Neutrophils # Man Lymphocytes # (Manual) Monocytes # (Manual) Eosinophils # (Manual) Basophils # (Manual) PT INR APTT Heparin Anti-Xa Level POC ABG pH POC ABG pCO2 POC ABG pO2 Sodium Potassium Chloride Carbon Dioxide BUN Creatinine Glucose POC Glucose 223 H 236 H 164 H Calcium Phosphorus Magnesium AST Alkaline Phosphatase Troponin T C-Reactive Protein Total Protein Albumin Triglycerides HDL Cholesterol Lipase Vitamin B12 TSH Urine WBC (Auto) Urine Chloride Urine Total Protein Vancomycin Trough Crossmatch 10/15/16 10/15/16 10/15/16 19:14 20:31 21:23 WBC RBC Hgb Hct MCV RDW Plt Count Lymph % (Auto) [place] % (Auto) [place] # Seg Neutrophils % Seg Neuts % (Manual) Lymphocytes % (Manual) Monocytes % (Manual) Basophils % (Manual) Nucleated RBC % Seg Neutrophils # Seg Neutrophils # Man Lymphocytes # (Manual) Monocytes # (Manual) Eosinophils # (Manual) Basophils # (Manual) PT INR APTT Heparin Anti-Xa Level POC ABG pH POC ABG pCO2 POC ABG pO2 Sodium Potassium Chloride Carbon Dioxide BUN Creatinine Glucose POC Glucose 138 H 158 H 158 H Calcium Phosphorus Magnesium AST Alkaline Phosphatase Troponin T C-Reactive Protein Total Protein Albumin Triglycerides HDL Cholesterol Lipase Vitamin B12 TSH Urine WBC (Auto) Urine Chloride Urine Total Protein Vancomycin Trough Crossmatch 10/15/16 10/15/16 10/16/16 22:04 22:57 00:11 WBC RBC Hgb Hct MCV RDW Plt Count Lymph % (Auto) [place] % (Auto) [place] # Seg Neutrophils % Seg Neuts % (Manual) Lymphocytes % (Manual) Monocytes % (Manual) Basophils % (Manual) Nucleated RBC % Seg Neutrophils # Seg Neutrophils # Man Lymphocytes # (Manual) Monocytes # (Manual) Eosinophils # (Manual) Basophils # (Manual) PT INR APTT Heparin Anti-Xa Level POC ABG pH POC ABG pCO2 POC ABG pO2 Sodium Potassium Chloride Carbon Dioxide BUN Creatinine Glucose POC Glucose 168 H 213 H 166 H Calcium Phosphorus Magnesium AST Alkaline Phosphatase Troponin T C-Reactive Protein Total Protein Albumin Triglycerides HDL Cholesterol Lipase Vitamin B12 TSH Urine WBC (Auto) Urine Chloride Urine Total Protein Vancomycin Trough Crossmatch 10/16/16 10/16/16 10/16/16 01:16 02:32 03:38 WBC RBC Hgb Hct MCV RDW Plt Count Lymph % (Auto) [place] % (Auto) [place] # Seg Neutrophils % Seg Neuts % (Manual) Lymphocytes % (Manual) Monocytes % (Manual) Basophils % (Manual) Nucleated RBC % Seg Neutrophils # Seg Neutrophils # Man Lymphocytes # (Manual) Monocytes # (Manual) Eosinophils # (Manual) Basophils # (Manual) PT INR APTT Heparin Anti-Xa Level POC ABG pH POC ABG pCO2 POC ABG pO2 Sodium Potassium Chloride Carbon Dioxide BUN Creatinine Glucose POC Glucose 171 H 164 H 147 H Calcium Phosphorus Magnesium AST Alkaline Phosphatase Troponin T C-Reactive Protein Total Protein Albumin Triglycerides HDL Cholesterol Lipase Vitamin B12 TSH Urine WBC (Auto) Urine Chloride Urine Total Protein Vancomycin Trough Crossmatch 10/16/16 10/16/16 10/16/16 04:14 04:14 04:49 WBC RBC Hgb Hct MCV RDW Plt Count Lymph % (Auto) [place] % (Auto) [place] # Seg Neutrophils % Seg Neuts % (Manual) Lymphocytes % (Manual) Monocytes % (Manual) Basophils % (Manual) Nucleated RBC % Seg Neutrophils # Seg Neutrophils # Man Lymphocytes # (Manual) Monocytes # (Manual) Eosinophils # (Manual) Basophils # (Manual) PT INR APTT Heparin Anti-Xa Level POC ABG pH POC ABG pCO2 POC ABG pO2 Sodium 147 H Potassium Chloride 110.9 H Carbon Dioxide 19 L BUN Creatinine Glucose 139 H POC Glucose 144 H Calcium 7.3 L Phosphorus 2.3 L Magnesium AST Alkaline Phosphatase Troponin T C-Reactive Protein Total Protein Albumin Triglycerides HDL Cholesterol Lipase 143 H Vitamin B12 TSH Urine WBC (Auto) Urine Chloride Urine Total Protein Vancomycin Trough Crossmatch 10/16/16 10/16/16 10/16/16 05:03 05:41 05:58 WBC 16.5 H RBC 3.36 L Hgb Hct MCV 98 H RDW 13.1 L Plt Count Lymph % (Auto) 8.5 L [place] % (Auto) 7.6 H [place] # 1.3 H Seg Neutrophils % 83.3 H Seg Neuts % (Manual) Lymphocytes % (Manual) Monocytes % (Manual) Basophils % (Manual) Nucleated RBC % Seg Neutrophils # 13.8 H Seg Neutrophils # Man Lymphocytes # (Manual) Monocytes # (Manual) Eosinophils # (Manual) Basophils # (Manual) PT INR APTT Heparin Anti-Xa Level POC ABG pH POC ABG pCO2 30.7 L POC ABG pO2 128 H Sodium Potassium Chloride Carbon Dioxide BUN Creatinine Glucose POC Glucose 131 H Calcium Phosphorus Magnesium AST Alkaline Phosphatase Troponin T C-Reactive Protein Total Protein Albumin Triglycerides HDL Cholesterol Lipase Vitamin B12 TSH Urine WBC (Auto) Urine Chloride Urine Total Protein Vancomycin Trough Crossmatch 10/16/16 10/16/16 10/16/16 06:32 09:27 09:35 WBC RBC Hgb Hct MCV RDW Plt Count Lymph % (Auto) [place] % (Auto) [place] # Seg Neutrophils % Seg Neuts % (Manual) Lymphocytes % (Manual) Monocytes % (Manual) Basophils % (Manual) Nucleated RBC % Seg Neutrophils # Seg Neutrophils # Man Lymphocytes # (Manual) Monocytes # (Manual) Eosinophils # (Manual) Basophils # (Manual) PT INR APTT Heparin Anti-Xa Level POC ABG pH POC ABG pCO2 32.8 L POC ABG pO2 137 H Sodium Potassium Chloride Carbon Dioxide BUN Creatinine Glucose POC Glucose 121 H 150 H Calcium Phosphorus Magnesium AST Alkaline Phosphatase Troponin T C-Reactive Protein Total Protein Albumin Triglycerides HDL Cholesterol Lipase Vitamin B12 TSH Urine WBC (Auto) Urine Chloride Urine Total Protein Vancomycin Trough Crossmatch 10/16/16 10/16/16 10/16/16 10:47 13:27 14:24 WBC RBC Hgb Hct MCV RDW Plt Count Lymph % (Auto) [place] % (Auto) [place] # Seg Neutrophils % Seg Neuts % (Manual) Lymphocytes % (Manual) Monocytes % (Manual) Basophils % (Manual) Nucleated RBC % Seg Neutrophils # Seg Neutrophils # Man Lymphocytes # (Manual) Monocytes # (Manual) Eosinophils # (Manual) Basophils # (Manual) PT INR APTT Heparin Anti-Xa Level POC ABG pH POC ABG pCO2 POC ABG pO2 Sodium Potassium Chloride Carbon Dioxide BUN Creatinine Glucose POC Glucose 184 H 171 H 174 H Calcium Phosphorus Magnesium AST Alkaline Phosphatase Troponin T C-Reactive Protein Total Protein Albumin Triglycerides HDL Cholesterol Lipase Vitamin B12 TSH Urine WBC (Auto) Urine Chloride Urine Total Protein Vancomycin Trough Crossmatch 10/16/16 10/16/16 10/16/16 15:48 16:26 18:17 WBC RBC Hgb Hct MCV RDW Plt Count Lymph % (Auto) [place] % (Auto) [place] # Seg Neutrophils % Seg Neuts % (Manual) Lymphocytes % (Manual) Monocytes % (Manual) Basophils % (Manual) Nucleated RBC % Seg Neutrophils # Seg Neutrophils # Man Lymphocytes # (Manual) Monocytes # (Manual) Eosinophils # (Manual) Basophils # (Manual) PT INR APTT Heparin Anti-Xa Level POC ABG pH POC ABG pCO2 POC ABG pO2 Sodium Potassium Chloride Carbon Dioxide BUN Creatinine Glucose POC Glucose 205 H 204 H 234 H Calcium Phosphorus Magnesium AST Alkaline Phosphatase Troponin T C-Reactive Protein Total Protein Albumin Triglycerides HDL Cholesterol Lipase Vitamin B12 TSH Urine WBC (Auto) Urine Chloride Urine Total Protein Vancomycin Trough Crossmatch 10/16/16 10/16/16 10/16/16 19:40 20:33 21:36 WBC RBC Hgb Hct MCV RDW Plt Count Lymph % (Auto) [place] % (Auto) [place] # Seg Neutrophils % Seg Neuts % (Manual) Lymphocytes % (Manual) Monocytes % (Manual) Basophils % (Manual) Nucleated RBC % Seg Neutrophils # Seg Neutrophils # Man Lymphocytes # (Manual) Monocytes # (Manual) Eosinophils # (Manual) Basophils # (Manual) PT INR APTT Heparin Anti-Xa Level POC ABG pH POC ABG pCO2 POC ABG pO2 Sodium Potassium Chloride Carbon Dioxide BUN Creatinine Glucose POC Glucose 167 H 153 H 158 H Calcium Phosphorus Magnesium AST Alkaline Phosphatase Troponin T C-Reactive Protein Total Protein Albumin Triglycerides HDL Cholesterol Lipase Vitamin B12 TSH Urine WBC (Auto) Urine Chloride Urine Total Protein Vancomycin Trough Crossmatch 10/16/16 10/16/16 10/17/16 22:54 23:48 00:47 WBC RBC Hgb Hct MCV RDW Plt Count Lymph % (Auto) [place] % (Auto) [place] # Seg Neutrophils % Seg Neuts % (Manual) Lymphocytes % (Manual) Monocytes % (Manual) Basophils % (Manual) Nucleated RBC % Seg Neutrophils # Seg Neutrophils # Man Lymphocytes # (Manual) Monocytes # (Manual) Eosinophils # (Manual) Basophils # (Manual) PT INR APTT Heparin Anti-Xa Level POC ABG pH POC ABG pCO2 POC ABG pO2 Sodium Potassium Chloride Carbon Dioxide BUN Creatinine Glucose POC Glucose 180 H 207 H 196 H Calcium Phosphorus Magnesium AST Alkaline Phosphatase Troponin T C-Reactive Protein Total Protein Albumin Triglycerides HDL Cholesterol Lipase Vitamin B12 TSH Urine WBC (Auto) Urine Chloride Urine Total Protein Vancomycin Trough Crossmatch 10/17/16 10/17/16 10/17/16 01:57 02:49 03:50 WBC RBC Hgb Hct MCV RDW Plt Count Lymph % (Auto) [place] % (Auto) [place] # Seg Neutrophils % Seg Neuts % (Manual) Lymphocytes % (Manual) Monocytes % (Manual) Basophils % (Manual) Nucleated RBC % Seg Neutrophils # Seg Neutrophils # Man Lymphocytes # (Manual) Monocytes # (Manual) Eosinophils # (Manual) Basophils # (Manual) PT INR APTT Heparin Anti-Xa Level POC ABG pH POC ABG pCO2 POC ABG pO2 Sodium Potassium Chloride Carbon Dioxide BUN Creatinine Glucose POC Glucose 180 H 151 H 106 H Calcium Phosphorus Magnesium AST Alkaline Phosphatase Troponin T C-Reactive Protein Total Protein Albumin Triglycerides HDL Cholesterol Lipase Vitamin B12 TSH Urine WBC (Auto) Urine Chloride Urine Total Protein Vancomycin Trough Crossmatch 10/17/16 10/17/16 10/17/16 04:59 06:03 06:35 WBC RBC Hgb Hct MCV RDW Plt Count Lymph % (Auto) [place] % (Auto) [place] # Seg Neutrophils % Seg Neuts % (Manual) Lymphocytes % (Manual) Monocytes % (Manual) Basophils % (Manual) Nucleated RBC % Seg Neutrophils # Seg Neutrophils # Man Lymphocytes # (Manual) Monocytes # (Manual) Eosinophils # (Manual) Basophils # (Manual) PT INR APTT Heparin Anti-Xa Level POC ABG pH 7.453 H POC ABG pCO2 30.1 L POC ABG pO2 111 H Sodium Potassium Chloride Carbon Dioxide BUN Creatinine Glucose POC Glucose 145 H 157 H Calcium Phosphorus Magnesium AST Alkaline Phosphatase Troponin T C-Reactive Protein Total Protein Albumin Triglycerides HDL Cholesterol Lipase Vitamin B12 TSH Urine WBC (Auto) Urine Chloride Urine Total Protein Vancomycin Trough Crossmatch 10/17/16 10/17/16 10/17/16 07:08 07:11 08:01 WBC RBC Hgb Hct MCV RDW Plt Count Lymph % (Auto) [place] % (Auto) [place] # Seg Neutrophils % Seg Neuts % (Manual) Lymphocytes % (Manual) Monocytes % (Manual) Basophils % (Manual) Nucleated RBC % Seg Neutrophils # Seg Neutrophils # Man Lymphocytes # (Manual) Monocytes # (Manual) Eosinophils # (Manual) Basophils # (Manual) PT INR APTT Heparin Anti-Xa Level POC ABG pH POC ABG pCO2 POC ABG pO2 Sodium 147 H Potassium Chloride 113.8 H Carbon Dioxide 19 L BUN Creatinine Glucose 136 H POC Glucose 136 H 152 H Calcium 7.7 L Phosphorus Magnesium AST Alkaline Phosphatase Troponin T C-Reactive Protein Total Protein Albumin Triglycerides HDL Cholesterol Lipase Vitamin B12 TSH Urine WBC (Auto) Urine Chloride Urine Total Protein Vancomycin Trough Crossmatch 10/17/16 10/17/16 10/17/16 08:23 09:17 09:53 WBC 18.1 H RBC 3.01 L Hgb 9.7 L Hct 29.4 L MCV 98 H RDW Plt Count 116 L Lymph % (Auto) [place] % (Auto) [place] # Seg Neutrophils % Seg Neuts % (Manual) 77.0 H Lymphocytes % (Manual) 4.0 L Monocytes % (Manual) 12.0 H Basophils % (Manual) Nucleated RBC % Seg Neutrophils # Seg Neutrophils # Man 13.9 H Lymphocytes # (Manual) 0.7 L Monocytes # (Manual) 2.2 H Eosinophils # (Manual) Basophils # (Manual) PT INR APTT Heparin Anti-Xa Level POC ABG pH POC ABG pCO2 POC ABG pO2 Sodium Potassium Chloride Carbon Dioxide BUN Creatinine Glucose POC Glucose 148 H 137 H Calcium Phosphorus Magnesium AST Alkaline Phosphatase Troponin T C-Reactive Protein Total Protein Albumin Triglycerides HDL Cholesterol Lipase Vitamin B12 TSH Urine WBC (Auto) Urine Chloride Urine Total Protein Vancomycin Trough Crossmatch 10/17/16 10/17/16 10/17/16 11:43 16:07 17:42 WBC RBC Hgb Hct MCV RDW Plt Count Lymph % (Auto) [place] % (Auto) [place] # Seg Neutrophils % Seg Neuts % (Manual) Lymphocytes % (Manual) Monocytes % (Manual) Basophils % (Manual) Nucleated RBC % Seg Neutrophils # Seg Neutrophils # Man Lymphocytes # (Manual) Monocytes # (Manual) Eosinophils # (Manual) Basophils # (Manual) PT 16.4 H INR 1.33 H APTT 38.8 H Heparin Anti-Xa Level POC ABG pH POC ABG pCO2 POC ABG pO2 Sodium Potassium Chloride Carbon Dioxide BUN Creatinine Glucose POC Glucose 179 H 153 H Calcium Phosphorus Magnesium AST Alkaline Phosphatase Troponin T C-Reactive Protein Total Protein Albumin Triglycerides HDL Cholesterol Lipase Vitamin B12 TSH Urine WBC (Auto) Urine Chloride Urine Total Protein Vancomycin Trough Crossmatch 10/17/16 10/18/16 10/18/16 22:54 04:37 05:39 WBC RBC Hgb Hct MCV RDW Plt Count Lymph % (Auto) [place] % (Auto) [place] # Seg Neutrophils % Seg Neuts % (Manual) Lymphocytes % (Manual) Monocytes % (Manual) Basophils % (Manual) Nucleated RBC % Seg Neutrophils # Seg Neutrophils # Man Lymphocytes # (Manual) Monocytes # (Manual) Eosinophils # (Manual) Basophils # (Manual) PT INR APTT Heparin Anti-Xa Level 0.27 L POC ABG pH 7.454 H POC ABG pCO2 30.8 L POC ABG pO2 115 H Sodium Potassium Chloride Carbon Dioxide BUN Creatinine Glucose POC Glucose 69 L Calcium Phosphorus Magnesium AST Alkaline Phosphatase Troponin T C-Reactive Protein Total Protein Albumin Triglycerides HDL Cholesterol Lipase Vitamin B12 TSH Urine WBC (Auto) Urine Chloride Urine Total Protein Vancomycin Trough Crossmatch 10/18/16 10/18/16 10/18/16 06:46 06:46 06:46 WBC 20.5 H RBC 2.62 L Hgb 8.4 L Hct 26.0 L MCV 100 H RDW Plt Count Lymph % (Auto) [place] % (Auto) [place] # Seg Neutrophils % Seg Neuts % (Manual) 75.0 H Lymphocytes % (Manual) 9.0 L Monocytes % (Manual) 14.0 H Basophils % (Manual) Nucleated RBC % Seg Neutrophils # Seg Neutrophils # Man 15.4 H Lymphocytes # (Manual) Monocytes # (Manual) 2.9 H Eosinophils # (Manual) Basophils # (Manual) PT INR APTT Heparin Anti-Xa Level POC ABG pH POC ABG pCO2 POC ABG pO2 Sodium Potassium Chloride 110.6 H Carbon Dioxide BUN Creatinine 1.3 H Glucose 153 H POC Glucose Calcium 8.0 L Phosphorus Magnesium 1.6 L AST Alkaline Phosphatase Troponin T C-Reactive Protein Total Protein Albumin Triglycerides HDL Cholesterol Lipase Vitamin B12 TSH Urine WBC (Auto) Urine Chloride Urine Total Protein Vancomycin Trough Crossmatch 10/18/16 10/18/16 10/18/16 07:30 11:37 17:51 WBC RBC Hgb Hct MCV RDW Plt Count Lymph % (Auto) [place] % (Auto) [place] # Seg Neutrophils % Seg Neuts % (Manual) Lymphocytes % (Manual) Monocytes % (Manual) Basophils % (Manual) Nucleated RBC % Seg Neutrophils # Seg Neutrophils # Man Lymphocytes # (Manual) Monocytes # (Manual) Eosinophils # (Manual) Basophils # (Manual) PT INR APTT Heparin Anti-Xa Level POC ABG pH POC ABG pCO2 POC ABG pO2 Sodium Potassium Chloride Carbon Dioxide BUN Creatinine Glucose POC Glucose 162 H 156 H 164 H Calcium Phosphorus Magnesium AST Alkaline Phosphatase Troponin T C-Reactive Protein Total Protein Albumin Triglycerides HDL Cholesterol Lipase Vitamin B12 TSH Urine WBC (Auto) Urine Chloride Urine Total Protein Vancomycin Trough Crossmatch 10/18/16 10/19/16 10/19/16 23:44 03:59 05:13 WBC 18.2 H RBC 2.76 L Hgb 9.0 L Hct 27.7 L MCV 100 H RDW Plt Count Lymph % (Auto) [place] % (Auto) [place] # Seg Neutrophils % Seg Neuts % (Manual) 76.0 H Lymphocytes % (Manual) 10.0 L Monocytes % (Manual) Basophils % (Manual) Nucleated RBC % Seg Neutrophils # Seg Neutrophils # Man 13.8 H Lymphocytes # (Manual) Monocytes # (Manual) Eosinophils # (Manual) Basophils # (Manual) PT INR APTT Heparin Anti-Xa Level POC ABG pH POC ABG pCO2 32.2 L POC ABG pO2 128 H Sodium Potassium Chloride Carbon Dioxide BUN Creatinine Glucose POC Glucose 278 H Calcium Phosphorus Magnesium AST Alkaline Phosphatase Troponin T C-Reactive Protein Total Protein Albumin Triglycerides HDL Cholesterol Lipase Vitamin B12 TSH Urine WBC (Auto) Urine Chloride Urine Total Protein Vancomycin Trough Crossmatch 10/19/16 10/19/16 10/19/16 06:01 06:30 12:20 WBC RBC Hgb Hct MCV RDW Plt Count Lymph % (Auto) [place] % (Auto) [place] # Seg Neutrophils % Seg Neuts % (Manual) Lymphocytes % (Manual) Monocytes % (Manual) Basophils % (Manual) Nucleated RBC % Seg Neutrophils # Seg Neutrophils # Man Lymphocytes # (Manual) Monocytes # (Manual) Eosinophils # (Manual) Basophils # (Manual) PT INR APTT Heparin Anti-Xa Level POC ABG pH POC ABG pCO2 POC ABG pO2 Sodium Potassium Chloride Carbon Dioxide 18 L BUN Creatinine 1.3 H Glucose 262 H POC Glucose 261 H 349 H Calcium 7.7 L Phosphorus 4.8 H D Magnesium AST Alkaline Phosphatase Troponin T C-Reactive Protein Total Protein Albumin Triglycerides HDL Cholesterol Lipase Vitamin B12 TSH Urine WBC (Auto) Urine Chloride Urine Total Protein Vancomycin Trough Crossmatch 10/19/16 10/20/16 10/20/16 16:48 00:17 05:20 WBC 22.5 H RBC 2.80 L Hgb 8.9 L Hct 28.3 L MCV 101 H RDW Plt Count Lymph % (Auto) [place] % (Auto) [place] # Seg Neutrophils % Seg Neuts % (Manual) Lymphocytes % (Manual) 10.0 L Monocytes % (Manual) Basophils % (Manual) Nucleated RBC % Seg Neutrophils # Seg Neutrophils # Man 13.3 H Lymphocytes # (Manual) Monocytes # (Manual) 1.1 H Eosinophils # (Manual) 0.7 H Basophils # (Manual) PT INR APTT Heparin Anti-Xa Level POC ABG pH POC ABG pCO2 POC ABG pO2 Sodium Potassium Chloride Carbon Dioxide BUN Creatinine Glucose POC Glucose 248 H 346 H Calcium Phosphorus Magnesium AST Alkaline Phosphatase Troponin T C-Reactive Protein Total Protein Albumin Triglycerides HDL Cholesterol Lipase Vitamin B12 TSH Urine WBC (Auto) Urine Chloride Urine Total Protein Vancomycin Trough Crossmatch 10/20/16 10/20/16 10/20/16 05:20 05:20 06:05 WBC RBC Hgb Hct MCV RDW Plt Count Lymph % (Auto) [place] % (Auto) [place] # Seg Neutrophils % Seg Neuts % (Manual) Lymphocytes % (Manual) Monocytes % (Manual) Basophils % (Manual) Nucleated RBC % Seg Neutrophils # Seg Neutrophils # Man Lymphocytes # (Manual) Monocytes # (Manual) Eosinophils # (Manual) Basophils # (Manual) PT INR APTT Heparin Anti-Xa Level 0.20 L POC ABG pH POC ABG pCO2 POC ABG pO2 Sodium Potassium Chloride Carbon Dioxide BUN 20 H Creatinine Glucose 374 H POC Glucose 337 H Calcium 8.3 L Phosphorus Magnesium AST Alkaline Phosphatase Troponin T C-Reactive Protein Total Protein Albumin Triglycerides HDL Cholesterol Lipase Vitamin B12 TSH Urine WBC (Auto) Urine Chloride Urine Total Protein Vancomycin Trough Crossmatch 10/20/16 10/20/16 10/20/16 11:49 13:59 17:56 WBC RBC Hgb Hct MCV RDW Plt Count Lymph % (Auto) [place] % (Auto) [place] # Seg Neutrophils % Seg Neuts % (Manual) Lymphocytes % (Manual) Monocytes % (Manual) Basophils % (Manual) Nucleated RBC % Seg Neutrophils # Seg Neutrophils # Man Lymphocytes # (Manual) Monocytes # (Manual) Eosinophils # (Manual) Basophils # (Manual) PT INR APTT Heparin Anti-Xa Level 2.00 H POC ABG pH POC ABG pCO2 POC ABG pO2 Sodium Potassium Chloride Carbon Dioxide BUN Creatinine Glucose POC Glucose 305 H 362 H Calcium Phosphorus Magnesium AST Alkaline Phosphatase Troponin T C-Reactive Protein Total Protein Albumin Triglycerides HDL Cholesterol Lipase Vitamin B12 TSH Urine WBC (Auto) Urine Chloride Urine Total Protein Vancomycin Trough Crossmatch 10/20/16 10/21/16 10/21/16 23:52 05:00 05:49 WBC 22.9 H RBC 2.49 L Hgb 7.7 L Hct 25.6 L MCV 103 H RDW Plt Count Lymph % (Auto) [place] % (Auto) [place] # Seg Neutrophils % Seg Neuts % (Manual) 94.0 H Lymphocytes % (Manual) 1.0 L Monocytes % (Manual) Basophils % (Manual) Nucleated RBC % Seg Neutrophils # Seg Neutrophils # Man 21.5 H Lymphocytes # (Manual) 0.2 L Monocytes # (Manual) 1.1 H Eosinophils # (Manual) Basophils # (Manual) PT INR APTT Heparin Anti-Xa Level POC ABG pH POC ABG pCO2 POC ABG pO2 Sodium Potassium Chloride Carbon Dioxide BUN Creatinine Glucose POC Glucose 252 H 180 H Calcium Phosphorus Magnesium AST Alkaline Phosphatase Troponin T C-Reactive Protein Total Protein Albumin Triglycerides HDL Cholesterol Lipase Vitamin B12 TSH Urine WBC (Auto) Urine Chloride Urine Total Protein Vancomycin Trough Crossmatch 10/21/16 10/21/16 10/21/16 11:47 11:49 14:10 WBC RBC Hgb Hct MCV RDW Plt Count Lymph % (Auto) [place] % (Auto) [place] # Seg Neutrophils % Seg Neuts % (Manual) Lymphocytes % (Manual) Monocytes % (Manual) Basophils % (Manual) Nucleated RBC % Seg Neutrophils # Seg Neutrophils # Man Lymphocytes # (Manual) Monocytes # (Manual) Eosinophils # (Manual) Basophils # (Manual) PT INR APTT Heparin Anti-Xa Level POC ABG pH POC ABG pCO2 POC ABG pO2 Sodium Potassium Chloride Carbon Dioxide BUN Creatinine Glucose POC Glucose 50 L 56 L 140 H Calcium Phosphorus Magnesium AST Alkaline Phosphatase Troponin T C-Reactive Protein Total Protein Albumin Triglycerides HDL Cholesterol Lipase Vitamin B12 TSH Urine WBC (Auto) Urine Chloride Urine Total Protein Vancomycin Trough Crossmatch 10/21/16 10/21/16 10/22/16 18:24 Unknown 00:07 WBC RBC Hgb Hct MCV RDW Plt Count Lymph % (Auto) [place] % (Auto) [place] # Seg Neutrophils % Seg Neuts % (Manual) Lymphocytes % (Manual) Monocytes % (Manual) Basophils % (Manual) Nucleated RBC % Seg Neutrophils # Seg Neutrophils # Man Lymphocytes # (Manual) Monocytes # (Manual) Eosinophils # (Manual) Basophils # (Manual) PT INR APTT Heparin Anti-Xa Level POC ABG pH POC ABG pCO2 POC ABG pO2 Sodium 150 H Potassium 3.1 L Chloride 112.4 H Carbon Dioxide BUN 25 H Creatinine 1.4 H Glucose POC Glucose 175 H 218 H Calcium 8.0 L Phosphorus Magnesium AST Alkaline Phosphatase Troponin T C-Reactive Protein Total Protein Albumin Triglycerides HDL Cholesterol Lipase Vitamin B12 TSH Urine WBC (Auto) Urine Chloride Urine Total Protein Vancomycin Trough Crossmatch 10/22/16 10/22/16 10/22/16 04:20 04:20 10:25 WBC 20.8 H RBC 2.37 L Hgb 7.5 L Hct 23.9 L MCV 101 H RDW Plt Count Lymph % (Auto) [place] % (Auto) [place] # Seg Neutrophils % Seg Neuts % (Manual) 89.0 H Lymphocytes % (Manual) 7.0 L Monocytes % (Manual) Basophils % (Manual) Nucleated RBC % Seg Neutrophils # Seg Neutrophils # Man 18.5 H Lymphocytes # (Manual) Monocytes # (Manual) Eosinophils # (Manual) Basophils # (Manual) 0.2 H PT INR APTT Heparin Anti-Xa Level POC ABG pH POC ABG pCO2 POC ABG pO2 Sodium 148 H Potassium 2.9 L* Chloride 109.4 H Carbon Dioxide BUN 26 H Creatinine Glucose 140 H POC Glucose Calcium 7.5 L Phosphorus Magnesium AST Alkaline Phosphatase Troponin T C-Reactive Protein Total Protein Albumin Triglycerides HDL Cholesterol Lipase Vitamin B12 976.8 H TSH Urine WBC (Auto) Urine Chloride Urine Total Protein Vancomycin Trough Crossmatch 10/22/16 10/22/16 10/22/16 10:25 14:50 18:16 WBC RBC Hgb Hct MCV RDW Plt Count Lymph % (Auto) [place] % (Auto) [place] # Seg Neutrophils % Seg Neuts % (Manual) Lymphocytes % (Manual) Monocytes % (Manual) Basophils % (Manual) Nucleated RBC % Seg Neutrophils # Seg Neutrophils # Man Lymphocytes # (Manual) Monocytes # (Manual) Eosinophils # (Manual) Basophils # (Manual) PT INR APTT Heparin Anti-Xa Level POC ABG pH POC ABG pCO2 POC ABG pO2 Sodium Potassium Chloride Carbon Dioxide BUN Creatinine Glucose POC Glucose 193 H Calcium Phosphorus Magnesium AST Alkaline Phosphatase Troponin T C-Reactive Protein Total Protein Albumin Triglycerides HDL Cholesterol Lipase Vitamin B12 TSH 0.143 L 0.162 L Urine WBC (Auto) Urine Chloride Urine Total Protein Vancomycin Trough Crossmatch 10/22/16 10/22/16 10/22/16 20:00 20:00 20:00 WBC 24.1 H RBC 2.58 L Hgb 8.2 L Hct 26.4 L MCV 102 H RDW Plt Count Lymph % (Auto) [place] % (Auto) [place] # Seg Neutrophils % Seg Neuts % (Manual) 74.0 H Lymphocytes % (Manual) 7.0 L Monocytes % (Manual) Basophils % (Manual) Nucleated RBC % Seg Neutrophils # Seg Neutrophils # Man 17.8 H Lymphocytes # (Manual) Monocytes # (Manual) Eosinophils # (Manual) Basophils # (Manual) PT INR APTT Heparin Anti-Xa Level 1.92 H POC ABG pH POC ABG pCO2 POC ABG pO2 Sodium Potassium Chloride Carbon Dioxide BUN Creatinine Glucose POC Glucose Calcium Phosphorus Magnesium AST Alkaline Phosphatase Troponin T C-Reactive Protein Total Protein Albumin Triglycerides HDL Cholesterol Lipase Vitamin B12 TSH Urine WBC (Auto) Urine Chloride Urine Total Protein Vancomycin Trough Crossmatch See Detail 10/23/16 10/23/16 10/23/16 00:21 06:09 12:07 WBC RBC Hgb Hct MCV RDW Plt Count Lymph % (Auto) [place] % (Auto) [place] # Seg Neutrophils % Seg Neuts % (Manual) Lymphocytes % (Manual) Monocytes % (Manual) Basophils % (Manual) Nucleated RBC % Seg Neutrophils # Seg Neutrophils # Man Lymphocytes # (Manual) Monocytes # (Manual) Eosinophils # (Manual) Basophils # (Manual) PT INR APTT Heparin Anti-Xa Level POC ABG pH POC ABG pCO2 POC ABG pO2 Sodium Potassium Chloride Carbon Dioxide BUN Creatinine Glucose POC Glucose 283 H 241 H 340 H Calcium Phosphorus Magnesium AST Alkaline Phosphatase Troponin T C-Reactive Protein Total Protein Albumin Triglycerides HDL Cholesterol Lipase Vitamin B12 TSH Urine WBC (Auto) Urine Chloride Urine Total Protein Vancomycin Trough Crossmatch 10/23/16 10/23/16 10/23/16 14:01 16:00 17:59 WBC RBC Hgb Hct MCV RDW Plt Count Lymph % (Auto) [place] % (Auto) [place] # Seg Neutrophils % Seg Neuts % (Manual) Lymphocytes % (Manual) Monocytes % (Manual) Basophils % (Manual) Nucleated RBC % Seg Neutrophils # Seg Neutrophils # Man Lymphocytes # (Manual) Monocytes # (Manual) Eosinophils # (Manual) Basophils # (Manual) PT INR APTT Heparin Anti-Xa Level 0.19 L POC ABG pH POC ABG pCO2 32.4 L POC ABG pO2 Sodium Potassium Chloride Carbon Dioxide BUN Creatinine Glucose POC Glucose 245 H Calcium Phosphorus Magnesium AST Alkaline Phosphatase Troponin T C-Reactive Protein Total Protein Albumin Triglycerides HDL Cholesterol Lipase Vitamin B12 TSH Urine WBC (Auto) Urine Chloride Urine Total Protein Vancomycin Trough Crossmatch 10/23/16 10/23/16 10/23/16 22:55 Unknown Unknown WBC 22.6 H RBC 3.26 L Hgb Hct MCV RDW 17.1 H Plt Count Lymph % (Auto) [place] % (Auto) [place] # Seg Neutrophils % Seg Neuts % (Manual) Lymphocytes % (Manual) 11.0 L Monocytes % (Manual) Basophils % (Manual) Nucleated RBC % Seg Neutrophils # Seg Neutrophils # Man 14.0 H Lymphocytes # (Manual) Monocytes # (Manual) Eosinophils # (Manual) Basophils # (Manual) PT INR APTT Heparin Anti-Xa Level 0.17 L 0.15 L POC ABG pH POC ABG pCO2 POC ABG pO2 Sodium Potassium Chloride Carbon Dioxide BUN Creatinine Glucose POC Glucose Calcium Phosphorus Magnesium AST Alkaline Phosphatase Troponin T C-Reactive Protein Total Protein Albumin Triglycerides HDL Cholesterol Lipase Vitamin B12 TSH Urine WBC (Auto) Urine Chloride Urine Total Protein Vancomycin Trough Crossmatch 10/23/16 10/24/16 10/24/16 Unknown 00:05 05:30 WBC RBC Hgb Hct MCV RDW Plt Count Lymph % (Auto) [place] % (Auto) [place] # Seg Neutrophils % Seg Neuts % (Manual) Lymphocytes % (Manual) Monocytes % (Manual) Basophils % (Manual) Nucleated RBC % Seg Neutrophils # Seg Neutrophils # Man Lymphocytes # (Manual) Monocytes # (Manual) Eosinophils # (Manual) Basophils # (Manual) PT INR APTT Heparin Anti-Xa Level 0.13 L POC ABG pH POC ABG pCO2 POC ABG pO2 Sodium Potassium Chloride 111.2 H Carbon Dioxide 20 L BUN 25 H Creatinine Glucose 227 H POC Glucose 118 H Calcium 7.1 L Phosphorus Magnesium AST Alkaline Phosphatase Troponin T C-Reactive Protein Total Protein Albumin Triglycerides HDL Cholesterol Lipase Vitamin B12 TSH Urine WBC (Auto) Urine Chloride Urine Total Protein Vancomycin Trough Crossmatch 10/24/16 10/24/16 10/24/16 11:00 11:00 12:06 WBC 17.6 H RBC 2.92 L Hgb 9.2 L Hct 28.3 L MCV RDW 16.9 H Plt Count Lymph % (Auto) [place] % (Auto) [place] # Seg Neutrophils % Seg Neuts % (Manual) Lymphocytes % (Manual) Monocytes % (Manual) Basophils % (Manual) Nucleated RBC % Seg Neutrophils # Seg Neutrophils # Man Lymphocytes # (Manual) Monocytes # (Manual) Eosinophils # (Manual) Basophils # (Manual) PT INR APTT Heparin Anti-Xa Level 0.27 L POC ABG pH POC ABG pCO2 POC ABG pO2 Sodium Potassium Chloride Carbon Dioxide BUN Creatinine Glucose POC Glucose 166 H Calcium Phosphorus Magnesium AST Alkaline Phosphatase Troponin T C-Reactive Protein Total Protein Albumin Triglycerides HDL Cholesterol Lipase Vitamin B12 TSH Urine WBC (Auto) Urine Chloride Urine Total Protein Vancomycin Trough Crossmatch 10/24/16 10/25/16 10/25/16 12:27 00:49 03:30 WBC RBC Hgb 8.8 L Hct 28.1 L MCV RDW Plt Count Lymph % (Auto) [place] % (Auto) [place] # Seg Neutrophils % Seg Neuts % (Manual) Lymphocytes % (Manual) Monocytes % (Manual) Basophils % (Manual) Nucleated RBC % Seg Neutrophils # Seg Neutrophils # Man Lymphocytes # (Manual) Monocytes # (Manual) Eosinophils # (Manual) Basophils # (Manual) PT INR APTT Heparin Anti-Xa Level POC ABG pH POC ABG pCO2 33.9 L POC ABG pO2 Sodium Potassium Chloride Carbon Dioxide BUN Creatinine Glucose POC Glucose 121 H Calcium Phosphorus Magnesium AST Alkaline Phosphatase Troponin T C-Reactive Protein Total Protein Albumin Triglycerides HDL Cholesterol Lipase Vitamin B12 TSH Urine WBC (Auto) Urine Chloride Urine Total Protein Vancomycin Trough Crossmatch 10/25/16 10/25/16 10/25/16 09:49 12:10 19:25 WBC 21.1 H RBC 3.02 L Hgb 9.3 L Hct 28.9 L MCV RDW 16.3 H Plt Count Lymph % (Auto) [place] % (Auto) [place] # Seg Neutrophils % Seg Neuts % (Manual) 81.0 H Lymphocytes % (Manual) 9.0 L Monocytes % (Manual) Basophils % (Manual) Nucleated RBC % Seg Neutrophils # Seg Neutrophils # Man 17.1 H Lymphocytes # (Manual) Monocytes # (Manual) Eosinophils # (Manual) Basophils # (Manual) PT INR APTT Heparin Anti-Xa Level POC ABG pH POC ABG pCO2 POC ABG pO2 Sodium Potassium Chloride Carbon Dioxide BUN Creatinine Glucose POC Glucose 158 H 151 H Calcium Phosphorus Magnesium AST Alkaline Phosphatase Troponin T C-Reactive Protein Total Protein Albumin Triglycerides HDL Cholesterol Lipase Vitamin B12 TSH Urine WBC (Auto) Urine Chloride Urine Total Protein Vancomycin Trough Crossmatch 10/26/16 10/26/16 10/26/16 00:20 01:09 05:02 WBC 22.2 H RBC 2.89 L Hgb 8.7 L Hct 27.8 L MCV RDW 16.4 H Plt Count Lymph % (Auto) [place] % (Auto) [place] # Seg Neutrophils % Seg Neuts % (Manual) Lymphocytes % (Manual) Monocytes % (Manual) Basophils % (Manual) Nucleated RBC % Seg Neutrophils # Seg Neutrophils # Man Lymphocytes # (Manual) Monocytes # (Manual) Eosinophils # (Manual) Basophils # (Manual) PT INR APTT Heparin Anti-Xa Level POC ABG pH POC ABG pCO2 POC ABG pO2 Sodium Potassium Chloride Carbon Dioxide BUN Creatinine Glucose POC Glucose 44 L 112 H Calcium Phosphorus Magnesium AST Alkaline Phosphatase Troponin T C-Reactive Protein Total Protein Albumin Triglycerides HDL Cholesterol Lipase Vitamin B12 TSH Urine WBC (Auto) Urine Chloride Urine Total Protein Vancomycin Trough Crossmatch 10/26/16 10/26/16 10/26/16 05:02 12:11 12:14 WBC RBC Hgb Hct MCV RDW Plt Count Lymph % (Auto) [place] % (Auto) [place] # Seg Neutrophils % Seg Neuts % (Manual) Lymphocytes % (Manual) Monocytes % (Manual) Basophils % (Manual) Nucleated RBC % Seg Neutrophils # Seg Neutrophils # Man Lymphocytes # (Manual) Monocytes # (Manual) Eosinophils # (Manual) Basophils # (Manual) PT INR APTT Heparin Anti-Xa Level POC ABG pH POC ABG pCO2 32.0 L POC ABG pO2 33 L Sodium Potassium 3.2 L D Chloride Carbon Dioxide 20 L BUN 24 H Creatinine Glucose 104 H POC Glucose 194 H Calcium 7.7 L Phosphorus Magnesium AST Alkaline Phosphatase Troponin T C-Reactive Protein Total Protein Albumin Triglycerides HDL Cholesterol Lipase Vitamin B12 TSH Urine WBC (Auto) Urine Chloride Urine Total Protein Vancomycin Trough Crossmatch 10/26/16 10/26/16 10/27/16 15:28 17:23 00:04 WBC RBC Hgb Hct MCV RDW Plt Count Lymph % (Auto) [place] % (Auto) [place] # Seg Neutrophils % Seg Neuts % (Manual) Lymphocytes % (Manual) Monocytes % (Manual) Basophils % (Manual) Nucleated RBC % Seg Neutrophils # Seg Neutrophils # Man Lymphocytes # (Manual) Monocytes # (Manual) Eosinophils # (Manual) Basophils # (Manual) PT INR APTT Heparin Anti-Xa Level POC ABG pH POC ABG pCO2 33.7 L POC ABG pO2 Sodium Potassium Chloride Carbon Dioxide BUN Creatinine Glucose POC Glucose 181 H 230 H Calcium Phosphorus Magnesium AST Alkaline Phosphatase Troponin T C-Reactive Protein Total Protein Albumin Triglycerides HDL Cholesterol Lipase Vitamin B12 TSH Urine WBC (Auto) Urine Chloride Urine Total Protein Vancomycin Trough Crossmatch 10/27/16 10/27/16 10/27/16 05:15 05:15 05:38 WBC 25.5 H RBC 3.07 L Hgb 9.4 L Hct 30.1 L MCV 98 H RDW 16.4 H Plt Count 527 H Lymph % (Auto) [place] % (Auto) [place] # Seg Neutrophils % Seg Neuts % (Manual) Lymphocytes % (Manual) Monocytes % (Manual) Basophils % (Manual) Nucleated RBC % Seg Neutrophils # Seg Neutrophils # Man Lymphocytes # (Manual) Monocytes # (Manual) Eosinophils # (Manual) Basophils # (Manual) PT INR APTT Heparin Anti-Xa Level POC ABG pH POC ABG pCO2 POC ABG pO2 Sodium Potassium Chloride Carbon Dioxide 19 L BUN 23 H Creatinine Glucose 160 H POC Glucose 168 H Calcium 8.0 L Phosphorus Magnesium AST Alkaline Phosphatase Troponin T C-Reactive Protein Total Protein Albumin Triglycerides HDL Cholesterol Lipase Vitamin B12 TSH Urine WBC (Auto) Urine Chloride Urine Total Protein Vancomycin Trough Crossmatch 10/27/16 10/27/16 10/27/16 11:59 18:35 23:48 WBC RBC Hgb Hct MCV RDW Plt Count Lymph % (Auto) [place] % (Auto) [place] # Seg Neutrophils % Seg Neuts % (Manual) Lymphocytes % (Manual) Monocytes % (Manual) Basophils % (Manual) Nucleated RBC % Seg Neutrophils # Seg Neutrophils # Man Lymphocytes # (Manual) Monocytes # (Manual) Eosinophils # (Manual) Basophils # (Manual) PT INR APTT Heparin Anti-Xa Level POC ABG pH POC ABG pCO2 POC ABG pO2 Sodium Potassium Chloride Carbon Dioxide BUN Creatinine Glucose POC Glucose 197 H 318 H 316 H Calcium Phosphorus Magnesium AST Alkaline Phosphatase Troponin T C-Reactive Protein Total Protein Albumin Triglycerides HDL Cholesterol Lipase Vitamin B12 TSH Urine WBC (Auto) Urine Chloride Urine Total Protein Vancomycin Trough Crossmatch 10/28/16 10/28/16 10/28/16 03:13 04:10 04:10 WBC 18.8 H RBC 2.64 L Hgb 8.1 L Hct 26.1 L MCV 99 H RDW 16.2 H Plt Count 544 H Lymph % (Auto) [place] % (Auto) [place] # Seg Neutrophils % Seg Neuts % (Manual) Lymphocytes % (Manual) Monocytes % (Manual) Basophils % (Manual) Nucleated RBC % Seg Neutrophils # Seg Neutrophils # Man Lymphocytes # (Manual) Monocytes # (Manual) Eosinophils # (Manual) Basophils # (Manual) PT INR APTT Heparin Anti-Xa Level POC ABG pH POC ABG pCO2 POC ABG pO2 Sodium Potassium Chloride Carbon Dioxide 21 L BUN 24 H Creatinine Glucose 302 H POC Glucose 304 H Calcium 7.7 L Phosphorus Magnesium AST Alkaline Phosphatase Troponin T C-Reactive Protein Total Protein Albumin Triglycerides HDL Cholesterol Lipase Vitamin B12 TSH Urine WBC (Auto) Urine Chloride Urine Total Protein Vancomycin Trough Crossmatch 10/28/16 10/28/16 10/28/16 04:10 12:36 18:27 WBC RBC Hgb Hct MCV RDW Plt Count Lymph % (Auto) [place] % (Auto) [place] # Seg Neutrophils % Seg Neuts % (Manual) Lymphocytes % (Manual) Monocytes % (Manual) Basophils % (Manual) Nucleated RBC % Seg Neutrophils # Seg Neutrophils # Man Lymphocytes # (Manual) Monocytes # (Manual) Eosinophils # (Manual) Basophils # (Manual) PT INR APTT Heparin Anti-Xa Level 0.20 L POC ABG pH POC ABG pCO2 POC ABG pO2 Sodium Potassium Chloride Carbon Dioxide BUN Creatinine Glucose POC Glucose 205 H 339 H Calcium Phosphorus Magnesium AST Alkaline Phosphatase Troponin T C-Reactive Protein Total Protein Albumin Triglycerides HDL Cholesterol Lipase Vitamin B12 TSH Urine WBC (Auto) Urine Chloride Urine Total Protein Vancomycin Trough Crossmatch 10/29/16 10/29/16 10/29/16 01:05 06:19 09:30 WBC 20.3 H RBC 2.80 L Hgb 8.5 L Hct 26.7 L MCV RDW 15.4 H Plt Count 571 H Lymph % (Auto) [place] % (Auto) [place] # Seg Neutrophils % Seg Neuts % (Manual) 75.0 H Lymphocytes % (Manual) 4.0 L Monocytes % (Manual) Basophils % (Manual) Nucleated RBC % Seg Neutrophils # Seg Neutrophils # Man 15.2 H Lymphocytes # (Manual) 0.8 L Monocytes # (Manual) Eosinophils # (Manual) Basophils # (Manual) PT INR APTT Heparin Anti-Xa Level POC ABG pH POC ABG pCO2 POC ABG pO2 Sodium Potassium Chloride Carbon Dioxide BUN Creatinine Glucose POC Glucose 275 H 179 H Calcium Phosphorus Magnesium AST Alkaline Phosphatase Troponin T C-Reactive Protein Total Protein Albumin Triglycerides HDL Cholesterol Lipase Vitamin B12 TSH Urine WBC (Auto) Urine Chloride Urine Total Protein Vancomycin Trough Crossmatch 10/29/16 10/29/16 10/29/16 11:46 15:18 17:55 WBC RBC Hgb Hct MCV RDW Plt Count Lymph % (Auto) [place] % (Auto) [place] # Seg Neutrophils % Seg Neuts % (Manual) Lymphocytes % (Manual) Monocytes % (Manual) Basophils % (Manual) Nucleated RBC % Seg Neutrophils # Seg Neutrophils # Man Lymphocytes # (Manual) Monocytes # (Manual) Eosinophils # (Manual) Basophils # (Manual) PT INR APTT Heparin Anti-Xa Level 1.15 H POC ABG pH POC ABG pCO2 POC ABG pO2 Sodium Potassium Chloride Carbon Dioxide BUN Creatinine Glucose POC Glucose 122 H 255 H Calcium Phosphorus Magnesium AST Alkaline Phosphatase Troponin T C-Reactive Protein Total Protein Albumin Triglycerides HDL Cholesterol Lipase Vitamin B12 TSH Urine WBC (Auto) Urine Chloride Urine Total Protein Vancomycin Trough Crossmatch 10/30/16 10/30/16 10/30/16 00:10 05:30 05:30 WBC 19.8 H RBC 2.51 L Hgb 7.7 L Hct 24.1 L MCV RDW 15.5 H Plt Count 534 H Lymph % (Auto) [place] % (Auto) [place] # Seg Neutrophils % Seg Neuts % (Manual) Lymphocytes % (Manual) Monocytes % (Manual) Basophils % (Manual) Nucleated RBC % Seg Neutrophils # Seg Neutrophils # Man Lymphocytes # (Manual) Monocytes # (Manual) Eosinophils # (Manual) Basophils # (Manual) PT INR APTT Heparin Anti-Xa Level POC ABG pH POC ABG pCO2 POC ABG pO2 Sodium Potassium Chloride Carbon Dioxide BUN Creatinine Glucose 211 H POC Glucose 202 H Calcium 7.4 L Phosphorus Magnesium AST Alkaline Phosphatase Troponin T C-Reactive Protein Total Protein Albumin Triglycerides HDL Cholesterol Lipase Vitamin B12 TSH Urine WBC (Auto) Urine Chloride Urine Total Protein Vancomycin Trough Crossmatch 10/30/16 10/30/16 10/30/16 06:32 12:51 17:47 WBC RBC Hgb Hct MCV RDW Plt Count Lymph % (Auto) [place] % (Auto) [place] # Seg Neutrophils % Seg Neuts % (Manual) Lymphocytes % (Manual) Monocytes % (Manual) Basophils % (Manual) Nucleated RBC % Seg Neutrophils # Seg Neutrophils # Man Lymphocytes # (Manual) Monocytes # (Manual) Eosinophils # (Manual) Basophils # (Manual) PT INR APTT Heparin Anti-Xa Level POC ABG pH POC ABG pCO2 POC ABG pO2 Sodium Potassium Chloride Carbon Dioxide BUN Creatinine Glucose POC Glucose 207 H 218 H 169 H Calcium Phosphorus Magnesium AST Alkaline Phosphatase Troponin T C-Reactive Protein Total Protein Albumin Triglycerides HDL Cholesterol Lipase Vitamin B12 TSH Urine WBC (Auto) Urine Chloride Urine Total Protein Vancomycin Trough Crossmatch 10/30/16 10/31/16 10/31/16 23:59 05:25 11:21 WBC RBC Hgb Hct MCV RDW Plt Count Lymph % (Auto) [place] % (Auto) [place] # Seg Neutrophils % Seg Neuts % (Manual) Lymphocytes % (Manual) Monocytes % (Manual) Basophils % (Manual) Nucleated RBC % Seg Neutrophils # Seg Neutrophils # Man Lymphocytes # (Manual) Monocytes # (Manual) Eosinophils # (Manual) Basophils # (Manual) PT INR APTT Heparin Anti-Xa Level POC ABG pH POC ABG pCO2 POC ABG pO2 Sodium Potassium Chloride Carbon Dioxide BUN Creatinine Glucose POC Glucose 138 H 127 H 132 H Calcium Phosphorus Magnesium AST Alkaline Phosphatase Troponin T C-Reactive Protein Total Protein Albumin Triglycerides HDL Cholesterol Lipase Vitamin B12 TSH Urine WBC (Auto) Urine Chloride Urine Total Protein Vancomycin Trough Crossmatch 10/31/16 10/31/16 11/01/16 17:07 23:54 05:47 WBC RBC Hgb Hct MCV RDW Plt Count Lymph % (Auto) [place] % (Auto) [place] # Seg Neutrophils % Seg Neuts % (Manual) Lymphocytes % (Manual) Monocytes % (Manual) Basophils % (Manual) Nucleated RBC % Seg Neutrophils # Seg Neutrophils # Man Lymphocytes # (Manual) Monocytes # (Manual) Eosinophils # (Manual) Basophils # (Manual) PT INR APTT Heparin Anti-Xa Level POC ABG pH POC ABG pCO2 POC ABG pO2 Sodium Potassium Chloride Carbon Dioxide BUN Creatinine Glucose POC Glucose 138 H 153 H 150 H Calcium Phosphorus Magnesium AST Alkaline Phosphatase Troponin T C-Reactive Protein Total Protein Albumin Triglycerides HDL Cholesterol Lipase Vitamin B12 TSH Urine WBC (Auto) Urine Chloride Urine Total Protein Vancomycin Trough Crossmatch 11/01/16 11/01/16 11/01/16 06:33 06:33 12:16 WBC 19.2 H RBC 2.51 L Hgb 7.9 L Hct 24.8 L MCV 99 H D RDW 16.1 H Plt Count 569 H Lymph % (Auto) [place] % (Auto) [place] # Seg Neutrophils % Seg Neuts % (Manual) Lymphocytes % (Manual) Monocytes % (Manual) Basophils % (Manual) Nucleated RBC % Seg Neutrophils # Seg Neutrophils # Man Lymphocytes # (Manual) Monocytes # (Manual) Eosinophils # (Manual) Basophils # (Manual) PT INR APTT Heparin Anti-Xa Level POC ABG pH POC ABG pCO2 POC ABG pO2 Sodium Potassium 3.5 L Chloride Carbon Dioxide 21 L BUN Creatinine Glucose 137 H POC Glucose 125 H Calcium 7.7 L Phosphorus Magnesium AST Alkaline Phosphatase 148 H Troponin T C-Reactive Protein Total Protein 6.2 L Albumin 2.0 L Triglycerides HDL Cholesterol Lipase Vitamin B12 TSH Urine WBC (Auto) Urine Chloride Urine Total Protein Vancomycin Trough Crossmatch 11/01/16 11/02/16 11/02/16 17:37 00:05 04:15 WBC RBC Hgb Hct MCV RDW Plt Count Lymph % (Auto) [place] % (Auto) [place] # Seg Neutrophils % Seg Neuts % (Manual) Lymphocytes % (Manual) Monocytes % (Manual) Basophils % (Manual) Nucleated RBC % Seg Neutrophils # Seg Neutrophils # Man Lymphocytes # (Manual) Monocytes # (Manual) Eosinophils # (Manual) Basophils # (Manual) PT INR APTT Heparin Anti-Xa Level < 0.10 L POC ABG pH POC ABG pCO2 POC ABG pO2 Sodium Potassium 3.2 L Chloride Carbon Dioxide BUN 6 L Creatinine Glucose 135 H POC Glucose 164 H Calcium 7.5 L Phosphorus Magnesium AST Alkaline Phosphatase 132 H Troponin T C-Reactive Protein Total Protein 6.2 L Albumin 1.8 L Triglycerides HDL Cholesterol Lipase Vitamin B12 TSH Urine WBC (Auto) Urine Chloride Urine Total Protein Vancomycin Trough Crossmatch 11/02/16 11/02/16 11/02/16 04:15 05:54 12:15 WBC 17.7 H RBC 2.43 L Hgb 7.6 L Hct 23.5 L MCV RDW 15.9 H Plt Count 502 H Lymph % (Auto) [place] % (Auto) [place] # Seg Neutrophils % Seg Neuts % (Manual) 84.0 H Lymphocytes % (Manual) 11.0 L Monocytes % (Manual) Basophils % (Manual) Nucleated RBC % 1.0 H Seg Neutrophils # Seg Neutrophils # Man 14.9 H Lymphocytes # (Manual) Monocytes # (Manual) Eosinophils # (Manual) Basophils # (Manual) PT INR APTT Heparin Anti-Xa Level POC ABG pH POC ABG pCO2 POC ABG pO2 Sodium Potassium Chloride Carbon Dioxide BUN Creatinine Glucose POC Glucose 152 H 137 H Calcium Phosphorus Magnesium AST Alkaline Phosphatase Troponin T C-Reactive Protein Total Protein Albumin Triglycerides HDL Cholesterol Lipase Vitamin B12 TSH Urine WBC (Auto) Urine Chloride Urine Total Protein Vancomycin Trough Crossmatch 11/02/16 11/03/16 11/03/16 17:00 00:05 00:05 WBC RBC Hgb Hct MCV RDW Plt Count Lymph % (Auto) [place] % (Auto) [place] # Seg Neutrophils % Seg Neuts % (Manual) Lymphocytes % (Manual) Monocytes % (Manual) Basophils % (Manual) Nucleated RBC % Seg Neutrophils # Seg Neutrophils # Man Lymphocytes # (Manual) Monocytes # (Manual) Eosinophils # (Manual) Basophils # (Manual) PT INR APTT Heparin Anti-Xa Level POC ABG pH POC ABG pCO2 POC ABG pO2 Sodium Potassium Chloride Carbon Dioxide 20 L BUN 5 L Creatinine Glucose 139 H POC Glucose 161 H Calcium 6.7 L Phosphorus Magnesium 1.2 L AST Alkaline Phosphatase Troponin T C-Reactive Protein Total Protein Albumin Triglycerides HDL Cholesterol Lipase Vitamin B12 TSH Urine WBC (Auto) Urine Chloride Urine Total Protein Vancomycin Trough Crossmatch 11/03/16 11/03/16 11/03/16 00:05 02:05 04:23 WBC 15.9 H 14.0 H RBC 1.93 L 2.38 L Hgb 5.9 L* 7.3 L Hct 18.9 L* 23.1 L MCV 98 H RDW 15.9 H 15.9 H Plt Count Lymph % (Auto) [place] % (Auto) [place] # Seg Neutrophils % Seg Neuts % (Manual) 85.0 H Lymphocytes % (Manual) 4.0 L Monocytes % (Manual) Basophils % (Manual) Nucleated RBC % Seg Neutrophils # Seg Neutrophils # Man 13.5 H Lymphocytes # (Manual) 0.6 L Monocytes # (Manual) Eosinophils # (Manual) Basophils # (Manual) PT INR APTT Heparin Anti-Xa Level POC ABG pH POC ABG pCO2 POC ABG pO2 Sodium Potassium Chloride Carbon Dioxide BUN 5 L Creatinine Glucose 127 H POC Glucose Calcium 7.2 L Phosphorus Magnesium AST Alkaline Phosphatase Troponin T C-Reactive Protein Total Protein 5.8 L Albumin 1.5 L Triglycerides HDL Cholesterol Lipase Vitamin B12 TSH Urine WBC (Auto) Urine Chloride Urine Total Protein Vancomycin Trough Crossmatch 11/03/16 11/03/16 11/03/16 09:14 09:27 11:54 WBC RBC Hgb Hct MCV RDW Plt Count Lymph % (Auto) [place] % (Auto) [place] # Seg Neutrophils % Seg Neuts % (Manual) Lymphocytes % (Manual) Monocytes % (Manual) Basophils % (Manual) Nucleated RBC % Seg Neutrophils # Seg Neutrophils # Man Lymphocytes # (Manual) Monocytes # (Manual) Eosinophils # (Manual) Basophils # (Manual) PT INR APTT Heparin Anti-Xa Level 0.11 L POC ABG pH POC ABG pCO2 POC ABG pO2 Sodium Potassium Chloride Carbon Dioxide BUN 5 L Creatinine Glucose 111 H POC Glucose 139 H Calcium 6.7 L Phosphorus Magnesium AST Alkaline Phosphatase Troponin T C-Reactive Protein Total Protein Albumin Triglycerides HDL Cholesterol Lipase Vitamin B12 TSH Urine WBC (Auto) Urine Chloride Urine Total Protein Vancomycin Trough Crossmatch 11/03/16 11/03/16 11/03/16 16:26 18:01 18:01 WBC RBC Hgb Hct MCV RDW Plt Count Lymph % (Auto) [place] % (Auto) [place] # Seg Neutrophils % Seg Neuts % (Manual) Lymphocytes % (Manual) Monocytes % (Manual) Basophils % (Manual) Nucleated RBC % Seg Neutrophils # Seg Neutrophils # Man Lymphocytes # (Manual) Monocytes # (Manual) Eosinophils # (Manual) Basophils # (Manual) PT INR APTT Heparin Anti-Xa Level 2.00 H POC ABG pH POC ABG pCO2 POC ABG pO2 Sodium Potassium Chloride Carbon Dioxide BUN Creatinine Glucose POC Glucose 142 H Calcium Phosphorus Magnesium AST Alkaline Phosphatase Troponin T C-Reactive Protein Total Protein Albumin Triglycerides HDL Cholesterol Lipase Vitamin B12 TSH Urine WBC (Auto) Urine Chloride Urine Total Protein Vancomycin Trough Crossmatch See Detail 11/04/16 11/04/16 11/04/16 02:15 02:15 06:35 WBC 11.8 H RBC 2.39 L Hgb 7.4 L Hct 23.1 L MCV RDW 15.9 H Plt Count Lymph % (Auto) [place] % (Auto) [place] # Seg Neutrophils % Seg Neuts % (Manual) 76.0 H Lymphocytes % (Manual) 12.0 L Monocytes % (Manual) 9.0 H Basophils % (Manual) Nucleated RBC % Seg Neutrophils # Seg Neutrophils # Man 9.0 H Lymphocytes # (Manual) Monocytes # (Manual) 1.1 H Eosinophils # (Manual) Basophils # (Manual) PT INR APTT Heparin Anti-Xa Level < 0.10 L POC ABG pH POC ABG pCO2 POC ABG pO2 Sodium Potassium Chloride Carbon Dioxide 21 L BUN 5 L Creatinine Glucose 112 H POC Glucose Calcium 6.8 L Phosphorus Magnesium AST Alkaline Phosphatase Troponin T C-Reactive Protein Total Protein 5.7 L Albumin 1.7 L Triglycerides HDL Cholesterol Lipase Vitamin B12 TSH Urine WBC (Auto) Urine Chloride Urine Total Protein Vancomycin Trough Crossmatch 11/04/16 11/04/16 11/04/16 10:51 12:58 15:04 WBC RBC Hgb Hct MCV RDW Plt Count Lymph % (Auto) [place] % (Auto) [place] # Seg Neutrophils % Seg Neuts % (Manual) Lymphocytes % (Manual) Monocytes % (Manual) Basophils % (Manual) Nucleated RBC % Seg Neutrophils # Seg Neutrophils # Man Lymphocytes # (Manual) Monocytes # (Manual) Eosinophils # (Manual) Basophils # (Manual) PT INR APTT Heparin Anti-Xa Level 1.05 H POC ABG pH POC ABG pCO2 33.7 L POC ABG pO2 60 L Sodium Potassium Chloride Carbon Dioxide BUN Creatinine Glucose POC Glucose 118 H Calcium Phosphorus Magnesium AST Alkaline Phosphatase Troponin T C-Reactive Protein Total Protein Albumin Triglycerides HDL Cholesterol Lipase Vitamin B12 TSH Urine WBC (Auto) Urine Chloride Urine Total Protein Vancomycin Trough Crossmatch 11/04/16 11/04/16 11/05/16 17:20 20:31 02:30 WBC RBC Hgb Hct MCV RDW Plt Count Lymph % (Auto) [place] % (Auto) [place] # Seg Neutrophils % Seg Neuts % (Manual) Lymphocytes % (Manual) Monocytes % (Manual) Basophils % (Manual) Nucleated RBC % Seg Neutrophils # Seg Neutrophils # Man Lymphocytes # (Manual) Monocytes # (Manual) Eosinophils # (Manual) Basophils # (Manual) PT INR APTT Heparin Anti-Xa Level POC ABG pH POC ABG pCO2 POC ABG pO2 Sodium Potassium 3.5 L Chloride Carbon Dioxide 18 L BUN 5 L Creatinine 0.6 L Glucose 110 H POC Glucose 228 H 169 H Calcium 7.1 L Phosphorus Magnesium AST Alkaline Phosphatase Troponin T C-Reactive Protein Total Protein Albumin 1.9 L Triglycerides HDL Cholesterol Lipase Vitamin B12 TSH Urine WBC (Auto) Urine Chloride Urine Total Protein Vancomycin Trough Crossmatch 11/05/16 11/05/16 11/05/16 02:30 17:52 21:07 WBC 14.1 H RBC Hgb Hct MCV RDW 16.7 H Plt Count Lymph % (Auto) [place] % (Auto) [place] # Seg Neutrophils % Seg Neuts % (Manual) 80.0 H Lymphocytes % (Manual) 6.0 L Monocytes % (Manual) 8.0 H Basophils % (Manual) Nucleated RBC % Seg Neutrophils # Seg Neutrophils # Man 11.3 H Lymphocytes # (Manual) 0.8 L Monocytes # (Manual) 1.1 H Eosinophils # (Manual) Basophils # (Manual) PT INR APTT Heparin Anti-Xa Level < 0.10 L POC ABG pH POC ABG pCO2 POC ABG pO2 Sodium Potassium Chloride Carbon Dioxide BUN Creatinine Glucose POC Glucose 174 H Calcium Phosphorus Magnesium AST Alkaline Phosphatase Troponin T C-Reactive Protein Total Protein Albumin Triglycerides HDL Cholesterol Lipase Vitamin B12 TSH Urine WBC (Auto) Urine Chloride Urine Total Protein Vancomycin Trough Crossmatch 11/05/16 11/06/16 11/06/16 23:30 05:00 05:00 WBC 15.2 H RBC 3.29 L Hgb 10.0 L Hct MCV RDW 16.9 H Plt Count Lymph % (Auto) [place] % (Auto) [place] # Seg Neutrophils % Seg Neuts % (Manual) Lymphocytes % (Manual) Monocytes % (Manual) Basophils % (Manual) Nucleated RBC % Seg Neutrophils # Seg Neutrophils # Man Lymphocytes # (Manual) Monocytes # (Manual) Eosinophils # (Manual) Basophils # (Manual) PT INR APTT Heparin Anti-Xa Level 0.94 H POC ABG pH POC ABG pCO2 POC ABG pO2 Sodium Potassium Chloride Carbon Dioxide BUN Creatinine Glucose POC Glucose 131 H Calcium Phosphorus Magnesium AST Alkaline Phosphatase Troponin T C-Reactive Protein Total Protein Albumin Triglycerides HDL Cholesterol Lipase Vitamin B12 TSH Urine WBC (Auto) Urine Chloride Urine Total Protein Vancomycin Trough Crossmatch 11/06/16 11/06/16 11/06/16 05:00 11:45 18:23 WBC RBC Hgb Hct MCV RDW Plt Count Lymph % (Auto) [place] % (Auto) [place] # Seg Neutrophils % Seg Neuts % (Manual) Lymphocytes % (Manual) Monocytes % (Manual) Basophils % (Manual) Nucleated RBC % Seg Neutrophils # Seg Neutrophils # Man Lymphocytes # (Manual) Monocytes # (Manual) Eosinophils # (Manual) Basophils # (Manual) PT INR APTT Heparin Anti-Xa Level POC ABG pH POC ABG pCO2 POC ABG pO2 Sodium Potassium 3.5 L Chloride 107.1 H Carbon Dioxide 20 L BUN 4 L Creatinine 0.6 L Glucose 104 H POC Glucose 141 H 255 H Calcium 6.7 L Phosphorus Magnesium AST Alkaline Phosphatase Troponin T C-Reactive Protein Total Protein Albumin Triglycerides HDL Cholesterol Lipase Vitamin B12 TSH Urine WBC (Auto) Urine Chloride Urine Total Protein Vancomycin Trough Crossmatch 11/06/16 11/06/16 11/07/16 22:07 23:07 11:41 WBC RBC Hgb Hct MCV RDW Plt Count Lymph % (Auto) [place] % (Auto) [place] # Seg Neutrophils % Seg Neuts % (Manual) Lymphocytes % (Manual) Monocytes % (Manual) Basophils % (Manual) Nucleated RBC % Seg Neutrophils # Seg Neutrophils # Man Lymphocytes # (Manual) Monocytes # (Manual) Eosinophils # (Manual) Basophils # (Manual) PT INR APTT Heparin Anti-Xa Level 0.80 H POC ABG pH POC ABG pCO2 POC ABG pO2 Sodium Potassium Chloride Carbon Dioxide BUN Creatinine Glucose POC Glucose 183 H 132 H Calcium Phosphorus Magnesium AST Alkaline Phosphatase Troponin T C-Reactive Protein Total Protein Albumin Triglycerides HDL Cholesterol Lipase Vitamin B12 TSH Urine WBC (Auto) Urine Chloride Urine Total Protein Vancomycin Trough Crossmatch 11/07/16 11/07/16 11/07/16 12:17 17:05 17:58 WBC RBC Hgb Hct MCV RDW Plt Count Lymph % (Auto) [place] % (Auto) [place] # Seg Neutrophils % Seg Neuts % (Manual) Lymphocytes % (Manual) Monocytes % (Manual) Basophils % (Manual) Nucleated RBC % Seg Neutrophils # Seg Neutrophils # Man Lymphocytes # (Manual) Monocytes # (Manual) Eosinophils # (Manual) Basophils # (Manual) PT INR APTT Heparin Anti-Xa Level 0.87 H POC ABG pH 7.324 L POC ABG pCO2 POC ABG pO2 Sodium Potassium Chloride Carbon Dioxide BUN Creatinine Glucose POC Glucose 158 H Calcium Phosphorus Magnesium AST Alkaline Phosphatase Troponin T C-Reactive Protein Total Protein Albumin Triglycerides HDL Cholesterol Lipase Vitamin B12 TSH Urine WBC (Auto) Urine Chloride Urine Total Protein Vancomycin Trough Crossmatch 11/07/16 11/07/16 11/07/16 23:26 Unknown Unknown WBC 12.3 H RBC 2.96 L Hgb 9.1 L Hct 27.9 L MCV RDW 16.8 H Plt Count Lymph % (Auto) [place] % (Auto) [place] # Seg Neutrophils % Seg Neuts % (Manual) 80.0 H Lymphocytes % (Manual) 7.0 L Monocytes % (Manual) Basophils % (Manual) Nucleated RBC % Seg Neutrophils # Seg Neutrophils # Man 9.8 H Lymphocytes # (Manual) 0.9 L Monocytes # (Manual) Eosinophils # (Manual) Basophils # (Manual) PT INR APTT Heparin Anti-Xa Level POC ABG pH POC ABG pCO2 POC ABG pO2 Sodium Potassium Chloride Carbon Dioxide 19 L BUN Creatinine Glucose 106 H POC Glucose 130 H Calcium 6.9 L Phosphorus Magnesium AST Alkaline Phosphatase Troponin T C-Reactive Protein Total Protein Albumin Triglycerides HDL Cholesterol Lipase Vitamin B12 TSH Urine WBC (Auto) Urine Chloride Urine Total Protein Vancomycin Trough Crossmatch 11/07/16 11/08/16 11/08/16 Unknown 05:14 05:20 WBC 12.4 H RBC 3.04 L Hgb 9.2 L Hct 28.8 L MCV RDW 16.6 H Plt Count Lymph % (Auto) [place] % (Auto) [place] # Seg Neutrophils % Seg Neuts % (Manual) 77.0 H Lymphocytes % (Manual) 5.0 L Monocytes % (Manual) Basophils % (Manual) 2.0 H Nucleated RBC % Seg Neutrophils # Seg Neutrophils # Man 9.5 H Lymphocytes # (Manual) 0.6 L Monocytes # (Manual) Eosinophils # (Manual) Basophils # (Manual) 0.2 H PT INR APTT Heparin Anti-Xa Level 0.90 H POC ABG pH POC ABG pCO2 POC ABG pO2 Sodium Potassium Chloride Carbon Dioxide BUN Creatinine Glucose POC Glucose 204 H Calcium Phosphorus Magnesium AST Alkaline Phosphatase Troponin T C-Reactive Protein Total Protein Albumin Triglycerides HDL Cholesterol Lipase Vitamin B12 TSH Urine WBC (Auto) Urine Chloride Urine Total Protein Vancomycin Trough Crossmatch 11/08/16 11/08/16 11/08/16 05:20 12:10 13:10 WBC RBC Hgb Hct MCV RDW Plt Count Lymph % (Auto) [place] % (Auto) [place] # Seg Neutrophils % Seg Neuts % (Manual) Lymphocytes % (Manual) Monocytes % (Manual) Basophils % (Manual) Nucleated RBC % Seg Neutrophils # Seg Neutrophils # Man Lymphocytes # (Manual) Monocytes # (Manual) Eosinophils # (Manual) Basophils # (Manual) PT INR APTT Heparin Anti-Xa Level POC ABG pH POC ABG pCO2 33.7 L POC ABG pO2 Sodium 136 L Potassium Chloride Carbon Dioxide 19 L BUN Creatinine Glucose 192 H POC Glucose 180 H Calcium 7.1 L Phosphorus Magnesium AST Alkaline Phosphatase Troponin T C-Reactive Protein Total Protein Albumin Triglycerides HDL Cholesterol Lipase Vitamin B12 TSH Urine WBC (Auto) Urine Chloride Urine Total Protein Vancomycin Trough Crossmatch 11/08/16 11/08/16 11/08/16 17:26 20:45 23:34 WBC RBC Hgb Hct MCV RDW Plt Count Lymph % (Auto) [place] % (Auto) [place] # Seg Neutrophils % Seg Neuts % (Manual) Lymphocytes % (Manual) Monocytes % (Manual) Basophils % (Manual) Nucleated RBC % Seg Neutrophils # Seg Neutrophils # Man Lymphocytes # (Manual) Monocytes # (Manual) Eosinophils # (Manual) Basophils # (Manual) PT INR APTT Heparin Anti-Xa Level POC ABG pH POC ABG pCO2 POC ABG pO2 Sodium Potassium Chloride Carbon Dioxide BUN Creatinine Glucose POC Glucose 187 H 178 H Calcium Phosphorus Magnesium AST Alkaline Phosphatase Troponin T C-Reactive Protein Total Protein Albumin Triglycerides HDL Cholesterol Lipase Vitamin B12 TSH Urine WBC (Auto) Urine Chloride Urine Total Protein Vancomycin Trough 35.4 H Crossmatch 11/09/16 11/09/16 11/09/16 05:30 05:30 05:59 WBC 11.5 H RBC 2.96 L Hgb 9.2 L Hct 28.2 L MCV RDW 16.4 H Plt Count Lymph % (Auto) [place] % (Auto) [place] # Seg Neutrophils % Seg Neuts % (Manual) 76.0 H Lymphocytes % (Manual) 2.0 L Monocytes % (Manual) Basophils % (Manual) Nucleated RBC % Seg Neutrophils # Seg Neutrophils # Man 8.7 H Lymphocytes # (Manual) 0.2 L Monocytes # (Manual) Eosinophils # (Manual) Basophils # (Manual) PT INR APTT Heparin Anti-Xa Level POC ABG pH POC ABG pCO2 POC ABG pO2 Sodium Potassium 3.4 L Chloride 107.6 H Carbon Dioxide 19 L BUN Creatinine 0.6 L Glucose 207 H POC Glucose 263 H Calcium 7.3 L Phosphorus Magnesium AST Alkaline Phosphatase Troponin T C-Reactive Protein Total Protein Albumin Triglycerides HDL Cholesterol Lipase Vitamin B12 TSH Urine WBC (Auto) Urine Chloride Urine Total Protein Vancomycin Trough Crossmatch 11/09/16 11/09/16 11/09/16 11:49 15:24 18:04 WBC RBC Hgb Hct MCV RDW Plt Count Lymph % (Auto) [place] % (Auto) [place] # Seg Neutrophils % Seg Neuts % (Manual) Lymphocytes % (Manual) Monocytes % (Manual) Basophils % (Manual) Nucleated RBC % Seg Neutrophils # Seg Neutrophils # Man Lymphocytes # (Manual) Monocytes # (Manual) Eosinophils # (Manual) Basophils # (Manual) PT INR APTT Heparin Anti-Xa Level POC ABG pH POC ABG pCO2 33.8 L POC ABG pO2 131 H Sodium Potassium Chloride Carbon Dioxide BUN Creatinine Glucose POC Glucose 269 H 242 H Calcium Phosphorus Magnesium AST Alkaline Phosphatase Troponin T C-Reactive Protein Total Protein Albumin Triglycerides HDL Cholesterol Lipase Vitamin B12 TSH Urine WBC (Auto) Urine Chloride Urine Total Protein Vancomycin Trough Crossmatch 11/09/16 11/10/16 11/10/16 22:57 04:30 04:30 WBC 15.7 H RBC 3.17 L Hgb 9.7 L Hct 30.2 L MCV RDW 16.2 H Plt Count Lymph % (Auto) [place] % (Auto) [place] # Seg Neutrophils % Seg Neuts % (Manual) Lymphocytes % (Manual) Monocytes % (Manual) Basophils % (Manual) Nucleated RBC % Seg Neutrophils # Seg Neutrophils # Man 8.5 H Lymphocytes # (Manual) Monocytes # (Manual) Eosinophils # (Manual) 0.5 H Basophils # (Manual) PT INR APTT Heparin Anti-Xa Level POC ABG pH POC ABG pCO2 POC ABG pO2 Sodium Potassium Chloride Carbon Dioxide 19 L BUN Creatinine 0.6 L Glucose 199 H POC Glucose 239 H Calcium 7.8 L Phosphorus Magnesium AST Alkaline Phosphatase Troponin T C-Reactive Protein Total Protein Albumin Triglycerides HDL Cholesterol Lipase Vitamin B12 TSH Urine WBC (Auto) Urine Chloride Urine Total Protein Vancomycin Trough Crossmatch 11/10/16 11/10/16 11/10/16 04:30 11:32 16:00 WBC RBC Hgb Hct MCV RDW Plt Count Lymph % (Auto) [place] % (Auto) [place] # Seg Neutrophils % Seg Neuts % (Manual) Lymphocytes % (Manual) Monocytes % (Manual) Basophils % (Manual) Nucleated RBC % Seg Neutrophils # Seg Neutrophils # Man Lymphocytes # (Manual) Monocytes # (Manual) Eosinophils # (Manual) Basophils # (Manual) PT INR APTT Heparin Anti-Xa Level 1.09 H < 0.10 L POC ABG pH POC ABG pCO2 POC ABG pO2 Sodium Potassium Chloride Carbon Dioxide BUN Creatinine Glucose POC Glucose 211 H Calcium Phosphorus Magnesium AST Alkaline Phosphatase Troponin T C-Reactive Protein Total Protein Albumin Triglycerides HDL Cholesterol Lipase Vitamin B12 TSH Urine WBC (Auto) Urine Chloride Urine Total Protein Vancomycin Trough Crossmatch 11/10/16 11/10/16 11/10/16 17:39 18:00 23:06 WBC RBC Hgb Hct MCV RDW Plt Count Lymph % (Auto) [place] % (Auto) [place] # Seg Neutrophils % Seg Neuts % (Manual) Lymphocytes % (Manual) Monocytes % (Manual) Basophils % (Manual) Nucleated RBC % Seg Neutrophils # Seg Neutrophils # Man Lymphocytes # (Manual) Monocytes # (Manual) Eosinophils # (Manual) Basophils # (Manual) PT INR APTT Heparin Anti-Xa Level 0.85 H POC ABG pH POC ABG pCO2 POC ABG pO2 Sodium Potassium Chloride Carbon Dioxide BUN Creatinine Glucose POC Glucose 249 H 220 H Calcium Phosphorus Magnesium AST Alkaline Phosphatase Troponin T C-Reactive Protein Total Protein Albumin Triglycerides HDL Cholesterol Lipase Vitamin B12 TSH Urine WBC (Auto) Urine Chloride Urine Total Protein Vancomycin Trough Crossmatch 11/11/16 11/11/16 11/11/16 05:56 06:15 06:15 WBC 13.3 H RBC 2.87 L Hgb 8.7 L Hct 27.2 L MCV RDW 16.4 H Plt Count Lymph % (Auto) [place] % (Auto) [place] # 0.9 H Seg Neutrophils % 78.9 H Seg Neuts % (Manual) Lymphocytes % (Manual) Monocytes % (Manual) Basophils % (Manual) Nucleated RBC % Seg Neutrophils # 10.5 H Seg Neutrophils # Man Lymphocytes # (Manual) Monocytes # (Manual) Eosinophils # (Manual) Basophils # (Manual) PT INR APTT Heparin Anti-Xa Level POC ABG pH POC ABG pCO2 POC ABG pO2 Sodium Potassium 3.2 L Chloride Carbon Dioxide 19 L BUN Creatinine Glucose POC Glucose 117 H Calcium 7.6 L Phosphorus Magnesium AST Alkaline Phosphatase Troponin T C-Reactive Protein Total Protein Albumin Triglycerides HDL Cholesterol Lipase Vitamin B12 TSH Urine WBC (Auto) Urine Chloride Urine Total Protein Vancomycin Trough Crossmatch 11/11/16 11/11/16 11/11/16 12:26 16:58 17:33 WBC RBC Hgb Hct MCV RDW Plt Count Lymph % (Auto) [place] % (Auto) [place] # Seg Neutrophils % Seg Neuts % (Manual) Lymphocytes % (Manual) Monocytes % (Manual) Basophils % (Manual) Nucleated RBC % Seg Neutrophils # Seg Neutrophils # Man Lymphocytes # (Manual) Monocytes # (Manual) Eosinophils # (Manual) Basophils # (Manual) PT INR APTT Heparin Anti-Xa Level < 0.10 L POC ABG pH POC ABG pCO2 POC ABG pO2 Sodium Potassium Chloride Carbon Dioxide BUN Creatinine Glucose POC Glucose 114 H 161 H Calcium Phosphorus Magnesium AST Alkaline Phosphatase Troponin T C-Reactive Protein Total Protein Albumin Triglycerides HDL Cholesterol Lipase Vitamin B12 TSH Urine WBC (Auto) Urine Chloride Urine Total Protein Vancomycin Trough Crossmatch 11/12/16 11/12/16 11/12/16 05:00 05:00 05:00 WBC 12.8 H RBC 2.75 L Hgb 8.4 L Hct 25.7 L MCV RDW 16.3 H Plt Count Lymph % (Auto) [place] % (Auto) 7.5 H [place] # 1.0 H Seg Neutrophils % 78.0 H Seg Neuts % (Manual) Lymphocytes % (Manual) Monocytes % (Manual) Basophils % (Manual) Nucleated RBC % Seg Neutrophils # 10.0 H Seg Neutrophils # Man Lymphocytes # (Manual) Monocytes # (Manual) Eosinophils # (Manual) Basophils # (Manual) PT INR APTT Heparin Anti-Xa Level 0.87 H POC ABG pH POC ABG pCO2 POC ABG pO2 Sodium Potassium 3.4 L Chloride Carbon Dioxide 19 L BUN Creatinine Glucose 112 H POC Glucose Calcium 7.7 L Phosphorus Magnesium AST Alkaline Phosphatase Troponin T C-Reactive Protein Total Protein Albumin Triglycerides HDL Cholesterol Lipase Vitamin B12 TSH Urine WBC (Auto) Urine Chloride Urine Total Protein Vancomycin Trough Crossmatch 0311/12/16 11/13/16 11:18 16:40 00:44 WBC RBC Hgb Hct MCV RDW Plt Count Lymph % (Auto) [place] % (Auto) [place] # Seg Neutrophils % Seg Neuts % (Manual) Lymphocytes % (Manual) Monocytes % (Manual) Basophils % (Manual) Nucleated RBC % Seg Neutrophils # Seg Neutrophils # Man Lymphocytes # (Manual) Monocytes # (Manual) Eosinophils # (Manual) Basophils # (Manual) PT INR APTT Heparin Anti-Xa Level POC ABG pH POC ABG pCO2 POC ABG pO2 Sodium Potassium Chloride Carbon Dioxide BUN Creatinine Glucose POC Glucose 135 H 139 H 169 H Calcium Phosphorus Magnesium AST Alkaline Phosphatase Troponin T C-Reactive Protein Total Protein Albumin Triglycerides HDL Cholesterol Lipase Vitamin B12 TSH Urine WBC (Auto) Urine Chloride Urine Total Protein Vancomycin Trough Crossmatch 11/13/16 11/13/16 11/13/16 05:28 05:28 06:02 WBC 12.7 H RBC 2.93 L Hgb 9.0 L Hct 27.6 L MCV RDW 16.1 H Plt Count Lymph % (Auto) [place] % (Auto) [place] # Seg Neutrophils % 78.6 H Seg Neuts % (Manual) Lymphocytes % (Manual) Monocytes % (Manual) Basophils % (Manual) Nucleated RBC % Seg Neutrophils # 10.0 H Seg Neutrophils # Man Lymphocytes # (Manual) Monocytes # (Manual) Eosinophils # (Manual) Basophils # (Manual) PT INR APTT Heparin Anti-Xa Level POC ABG pH POC ABG pCO2 POC ABG pO2 Sodium Potassium Chloride Carbon Dioxide 17 L BUN Creatinine Glucose 116 H POC Glucose 112 H Calcium 7.8 L Phosphorus Magnesium AST Alkaline Phosphatase Troponin T C-Reactive Protein Total Protein Albumin Triglycerides HDL Cholesterol Lipase Vitamin B12 TSH Urine WBC (Auto) Urine Chloride Urine Total Protein Vancomycin Trough Crossmatch 11/13/16 11/13/16 11/13/16 12:34 16:55 17:00 WBC RBC Hgb Hct MCV RDW Plt Count Lymph % (Auto) [place] % (Auto) [place] # Seg Neutrophils % Seg Neuts % (Manual) Lymphocytes % (Manual) Monocytes % (Manual) Basophils % (Manual) Nucleated RBC % Seg Neutrophils # Seg Neutrophils # Man Lymphocytes # (Manual) Monocytes # (Manual) Eosinophils # (Manual) Basophils # (Manual) PT INR APTT Heparin Anti-Xa Level POC ABG pH POC ABG pCO2 22.9 L POC ABG pO2 53 L Sodium Potassium Chloride Carbon Dioxide BUN Creatinine Glucose POC Glucose 109 H 122 H Calcium Phosphorus Magnesium AST Alkaline Phosphatase Troponin T C-Reactive Protein Total Protein Albumin Triglycerides HDL Cholesterol Lipase Vitamin B12 TSH Urine WBC (Auto) Urine Chloride Urine Total Protein Vancomycin Trough Crossmatch 11/13/16 11/14/16 11/14/16 23:33 04:42 04:42 WBC 11.7 H RBC 3.01 L Hgb 9.3 L Hct 28.9 L MCV RDW 16.5 H Plt Count Lymph % (Auto) [place] % (Auto) [place] # Seg Neutrophils % Seg Neuts % (Manual) 79.0 H Lymphocytes % (Manual) 10.0 L Monocytes % (Manual) Basophils % (Manual) Nucleated RBC % Seg Neutrophils # Seg Neutrophils # Man 9.2 H Lymphocytes # (Manual) Monocytes # (Manual) Eosinophils # (Manual) Basophils # (Manual) PT INR APTT Heparin Anti-Xa Level POC ABG pH POC ABG pCO2 POC ABG pO2 Sodium Potassium Chloride Carbon Dioxide 16 L BUN Creatinine Glucose 102 H POC Glucose 173 H Calcium 7.5 L Phosphorus Magnesium AST Alkaline Phosphatase Troponin T C-Reactive Protein Total Protein Albumin Triglycerides HDL Cholesterol Lipase Vitamin B12 TSH Urine WBC (Auto) Urine Chloride Urine Total Protein Vancomycin Trough Crossmatch 11/14/16 11/14/16 11/14/16 11:43 16:57 19:45 WBC RBC Hgb Hct MCV RDW Plt Count Lymph % (Auto) [place] % (Auto) [place] # Seg Neutrophils % Seg Neuts % (Manual) Lymphocytes % (Manual) Monocytes % (Manual) Basophils % (Manual) Nucleated RBC % Seg Neutrophils # Seg Neutrophils # Man Lymphocytes # (Manual) Monocytes # (Manual) Eosinophils # (Manual) Basophils # (Manual) PT INR APTT Heparin Anti-Xa Level 0.71 H POC ABG pH POC ABG pCO2 POC ABG pO2 Sodium Potassium Chloride Carbon Dioxide BUN Creatinine Glucose POC Glucose 130 H 209 H Calcium Phosphorus Magnesium AST Alkaline Phosphatase Troponin T C-Reactive Protein Total Protein Albumin Triglycerides HDL Cholesterol Lipase Vitamin B12 TSH Urine WBC (Auto) Urine Chloride Urine Total Protein Vancomycin Trough Crossmatch 11/14/16 11/15/16 11/16/16 23:43 23:47 06:11 WBC RBC Hgb Hct MCV RDW Plt Count Lymph % (Auto) [place] % (Auto) [place] # Seg Neutrophils % Seg Neuts % (Manual) Lymphocytes % (Manual) Monocytes % (Manual) Basophils % (Manual) Nucleated RBC % Seg Neutrophils # Seg Neutrophils # Man Lymphocytes # (Manual) Monocytes # (Manual) Eosinophils # (Manual) Basophils # (Manual) PT INR APTT Heparin Anti-Xa Level POC ABG pH POC ABG pCO2 POC ABG pO2 Sodium Potassium Chloride Carbon Dioxide BUN Creatinine Glucose POC Glucose 167 H 114 H 125 H Calcium Phosphorus Magnesium AST Alkaline Phosphatase Troponin T C-Reactive Protein Total Protein Albumin Triglycerides HDL Cholesterol Lipase Vitamin B12 TSH Urine WBC (Auto) Urine Chloride Urine Total Protein Vancomycin Trough Crossmatch 11/16/16 11/16/16 11/16/16 09:05 09:05 09:05 WBC RBC 2.53 L Hgb 8.0 L Hct 23.7 L MCV RDW 15.9 H Plt Count Lymph % (Auto) [place] % (Auto) [place] # Seg Neutrophils % Seg Neuts % (Manual) Lymphocytes % (Manual) Monocytes % (Manual) Basophils % (Manual) Nucleated RBC % Seg Neutrophils # Seg Neutrophils # Man Lymphocytes # (Manual) Monocytes # (Manual) Eosinophils # (Manual) Basophils # (Manual) PT INR APTT Heparin Anti-Xa Level POC ABG pH POC ABG pCO2 POC ABG pO2 Sodium Potassium 2.5 L* D Chloride Carbon Dioxide 19 L BUN 5 L Creatinine Glucose 103 H POC Glucose Calcium 6.6 L Phosphorus Magnesium 1.3 L AST Alkaline Phosphatase Troponin T C-Reactive Protein Total Protein Albumin Triglycerides HDL Cholesterol Lipase Vitamin B12 TSH Urine WBC (Auto) Urine Chloride Urine Total Protein Vancomycin Trough Crossmatch 11/16/16 11/16/16 11/16/16 12:15 13:00 14:45 WBC RBC Hgb Hct MCV RDW Plt Count Lymph % (Auto) [place] % (Auto) [place] # Seg Neutrophils % Seg Neuts % (Manual) Lymphocytes % (Manual) Monocytes % (Manual) Basophils % (Manual) Nucleated RBC % Seg Neutrophils # Seg Neutrophils # Man Lymphocytes # (Manual) Monocytes # (Manual) Eosinophils # (Manual) Basophils # (Manual) PT 19.1 H INR 1.61 H APTT Heparin Anti-Xa Level POC ABG pH 7.479 H POC ABG pCO2 23.6 L POC ABG pO2 Sodium Potassium Chloride Carbon Dioxide BUN Creatinine Glucose POC Glucose 129 H Calcium Phosphorus Magnesium AST Alkaline Phosphatase Troponin T C-Reactive Protein Total Protein Albumin Triglycerides HDL Cholesterol Lipase Vitamin B12 TSH Urine WBC (Auto) Urine Chloride Urine Total Protein Vancomycin Trough Crossmatch 11/16/16 11/17/16 11/17/16 17:43 00:30 04:32 WBC RBC Hgb Hct MCV RDW Plt Count Lymph % (Auto) [place] % (Auto) [place] # Seg Neutrophils % Seg Neuts % (Manual) Lymphocytes % (Manual) Monocytes % (Manual) Basophils % (Manual) Nucleated RBC % Seg Neutrophils # Seg Neutrophils # Man Lymphocytes # (Manual) Monocytes # (Manual) Eosinophils # (Manual) Basophils # (Manual) PT INR APTT Heparin Anti-Xa Level POC ABG pH POC ABG pCO2 POC ABG pO2 Sodium Potassium Chloride Carbon Dioxide 18 L BUN Creatinine Glucose 127 H POC Glucose 224 H 259 H Calcium 7.5 L Phosphorus Magnesium AST Alkaline Phosphatase Troponin T C-Reactive Protein Total Protein Albumin Triglycerides HDL Cholesterol Lipase Vitamin B12 TSH Urine WBC (Auto) Urine Chloride Urine Total Protein Vancomycin Trough Crossmatch 11/17/16 11/17/16 11/17/16 05:42 08:34 12:19 WBC RBC 2.85 L Hgb 8.9 L Hct 26.5 L MCV RDW 16.2 H Plt Count Lymph % (Auto) [place] % (Auto) [place] # Seg Neutrophils % Seg Neuts % (Manual) Lymphocytes % (Manual) Monocytes % (Manual) Basophils % (Manual) Nucleated RBC % Seg Neutrophils # Seg Neutrophils # Man Lymphocytes # (Manual) Monocytes # (Manual) Eosinophils # (Manual) Basophils # (Manual) PT INR APTT Heparin Anti-Xa Level POC ABG pH POC ABG pCO2 POC ABG pO2 Sodium Potassium Chloride Carbon Dioxide BUN Creatinine Glucose POC Glucose 118 H 264 H Calcium Phosphorus Magnesium AST Alkaline Phosphatase Troponin T C-Reactive Protein Total Protein Albumin Triglycerides HDL Cholesterol Lipase Vitamin B12 TSH Urine WBC (Auto) Urine Chloride Urine Total Protein Vancomycin Trough Crossmatch 11/17/16 11/17/16 11/18/16 16:52 23:44 04:53 WBC RBC Hgb Hct MCV RDW Plt Count Lymph % (Auto) [place] % (Auto) [place] # Seg Neutrophils % Seg Neuts % (Manual) Lymphocytes % (Manual) Monocytes % (Manual) Basophils % (Manual) Nucleated RBC % Seg Neutrophils # Seg Neutrophils # Man Lymphocytes # (Manual) Monocytes # (Manual) Eosinophils # (Manual) Basophils # (Manual) PT INR APTT Heparin Anti-Xa Level POC ABG pH POC ABG pCO2 POC ABG pO2 Sodium Potassium Chloride Carbon Dioxide BUN Creatinine Glucose POC Glucose 256 H 109 H 287 H Calcium Phosphorus Magnesium AST Alkaline Phosphatase Troponin T C-Reactive Protein Total Protein Albumin Triglycerides HDL Cholesterol Lipase Vitamin B12 TSH Urine WBC (Auto) Urine Chloride Urine Total Protein Vancomycin Trough Crossmatch 11/18/16 11/18/16 11/18/16 05:31 05:45 05:45 WBC RBC Hgb Hct MCV RDW Plt Count Lymph % (Auto) [place] % (Auto) [place] # Seg Neutrophils % Seg Neuts % (Manual) Lymphocytes % (Manual) Monocytes % (Manual) Basophils % (Manual) Nucleated RBC % Seg Neutrophils # Seg Neutrophils # Man Lymphocytes # (Manual) Monocytes # (Manual) Eosinophils # (Manual) Basophils # (Manual) PT 20.1 H INR 1.72 H APTT 131.1 H* Heparin Anti-Xa Level 0.18 L POC ABG pH 7.252 L POC ABG pCO2 32.0 L POC ABG pO2 Sodium Potassium Chloride 107.1 H Carbon Dioxide 17 L BUN Creatinine Glucose 284 H POC Glucose Calcium 7.2 L Phosphorus Magnesium AST Alkaline Phosphatase Troponin T C-Reactive Protein Total Protein 5.5 L Albumin 2.1 L Triglycerides HDL Cholesterol Lipase Vitamin B12 TSH Urine WBC (Auto) Urine Chloride Urine Total Protein Vancomycin Trough Crossmatch 11/18/16 11/18/16 11/18/16 05:45 09:17 12:06 WBC 13.3 H RBC 3.07 L Hgb 9.2 L Hct 29.5 L MCV RDW 16.9 H Plt Count Lymph % (Auto) 11.0 L [place] % (Auto) [place] # Seg Neutrophils % 82.9 H Seg Neuts % (Manual) Lymphocytes % (Manual) Monocytes % (Manual) Basophils % (Manual) Nucleated RBC % Seg Neutrophils # 11.0 H Seg Neutrophils # Man Lymphocytes # (Manual) Monocytes # (Manual) Eosinophils # (Manual) Basophils # (Manual) PT INR APTT Heparin Anti-Xa Level POC ABG pH POC ABG pCO2 24.3 L POC ABG pO2 79 L Sodium Potassium Chloride Carbon Dioxide BUN Creatinine Glucose POC Glucose 433 H Calcium Phosphorus Magnesium AST Alkaline Phosphatase Troponin T C-Reactive Protein Total Protein Albumin Triglycerides HDL Cholesterol Lipase Vitamin B12 TSH Urine WBC (Auto) Urine Chloride Urine Total Protein Vancomycin Trough Crossmatch 11/18/16 11/18/16 11/18/16 12:09 13:00 17:22 WBC 12.6 H RBC 2.79 L Hgb 8.6 L Hct 26.6 L MCV RDW 17.0 H Plt Count Lymph % (Auto) [place] % (Auto) [place] # Seg Neutrophils % Seg Neuts % (Manual) 90.0 H Lymphocytes % (Manual) 8.0 L Monocytes % (Manual) Basophils % (Manual) Nucleated RBC % Seg Neutrophils # Seg Neutrophils # Man 11.3 H Lymphocytes # (Manual) 1.0 L Monocytes # (Manual) Eosinophils # (Manual) Basophils # (Manual) PT INR APTT Heparin Anti-Xa Level POC ABG pH POC ABG pCO2 POC ABG pO2 Sodium Potassium Chloride Carbon Dioxide BUN Creatinine Glucose POC Glucose 429 H 297 H Calcium Phosphorus Magnesium AST Alkaline Phosphatase Troponin T C-Reactive Protein Total Protein Albumin Triglycerides HDL Cholesterol Lipase Vitamin B12 TSH Urine WBC (Auto) Urine Chloride Urine Total Protein Vancomycin Trough Crossmatch 11/18/16 11/19/16 11/19/16 23:27 04:30 04:30 WBC RBC 2.92 L Hgb 8.8 L Hct 27.0 L MCV RDW 16.6 H Plt Count Lymph % (Auto) [place] % (Auto) [place] # Seg Neutrophils % Seg Neuts % (Manual) Lymphocytes % (Manual) Monocytes % (Manual) Basophils % (Manual) Nucleated RBC % Seg Neutrophils # Seg Neutrophils # Man Lymphocytes # (Manual) Monocytes # (Manual) Eosinophils # (Manual) Basophils # (Manual) PT INR APTT Heparin Anti-Xa Level POC ABG pH POC ABG pCO2 POC ABG pO2 Sodium Potassium 3.0 L Chloride 107.9 H Carbon Dioxide 20 L BUN Creatinine Glucose 231 H POC Glucose 268 H Calcium 7.1 L Phosphorus Magnesium AST Alkaline Phosphatase Troponin T C-Reactive Protein Total Protein 5.5 L Albumin 2.1 L Triglycerides HDL Cholesterol Lipase Vitamin B12 TSH Urine WBC (Auto) Urine Chloride Urine Total Protein Vancomycin Trough Crossmatch 11/19/16 11/19/16 11/19/16 04:40 06:40 10:00 WBC RBC Hgb Hct MCV RDW Plt Count Lymph % (Auto) [place] % (Auto) [place] # Seg Neutrophils % Seg Neuts % (Manual) Lymphocytes % (Manual) Monocytes % (Manual) Basophils % (Manual) Nucleated RBC % Seg Neutrophils # Seg Neutrophils # Man Lymphocytes # (Manual) Monocytes # (Manual) Eosinophils # (Manual) Basophils # (Manual) PT INR APTT Heparin Anti-Xa Level POC ABG pH POC ABG pCO2 POC ABG pO2 Sodium Potassium Chloride Carbon Dioxide BUN Creatinine Glucose POC Glucose 267 H 244 H Calcium Phosphorus Magnesium 1.4 L AST Alkaline Phosphatase Troponin T C-Reactive Protein Total Protein Albumin Triglycerides HDL Cholesterol Lipase Vitamin B12 TSH Urine WBC (Auto) Urine Chloride Urine Total Protein Vancomycin Trough Crossmatch 11/19/16 11/19/16 11/19/16 12:08 18:10 23:40 WBC RBC Hgb Hct MCV RDW Plt Count Lymph % (Auto) [place] % (Auto) [place] # Seg Neutrophils % Seg Neuts % (Manual) Lymphocytes % (Manual) Monocytes % (Manual) Basophils % (Manual) Nucleated RBC % Seg Neutrophils # Seg Neutrophils # Man Lymphocytes # (Manual) Monocytes # (Manual) Eosinophils # (Manual) Basophils # (Manual) PT INR APTT Heparin Anti-Xa Level POC ABG pH POC ABG pCO2 POC ABG pO2 Sodium Potassium Chloride Carbon Dioxide BUN Creatinine Glucose POC Glucose 254 H 265 H 197 H Calcium Phosphorus Magnesium AST Alkaline Phosphatase Troponin T C-Reactive Protein Total Protein Albumin Triglycerides HDL Cholesterol Lipase Vitamin B12 TSH Urine WBC (Auto) Urine Chloride Urine Total Protein Vancomycin Trough Crossmatch 11/20/16 11/20/16 11/20/16 05:00 05:44 11:33 WBC RBC Hgb Hct MCV RDW Plt Count Lymph % (Auto) [place] % (Auto) [place] # Seg Neutrophils % Seg Neuts % (Manual) Lymphocytes % (Manual) Monocytes % (Manual) Basophils % (Manual) Nucleated RBC % Seg Neutrophils # Seg Neutrophils # Man Lymphocytes # (Manual) Monocytes # (Manual) Eosinophils # (Manual) Basophils # (Manual) PT INR APTT Heparin Anti-Xa Level POC ABG pH POC ABG pCO2 POC ABG pO2 Sodium Potassium 3.4 L Chloride 107.4 H Carbon Dioxide 20 L BUN Creatinine Glucose 140 H POC Glucose 163 H 108 H Calcium 7.2 L Phosphorus Magnesium AST Alkaline Phosphatase Troponin T C-Reactive Protein Total Protein Albumin Triglycerides HDL Cholesterol Lipase Vitamin B12 TSH Urine WBC (Auto) Urine Chloride Urine Total Protein Vancomycin Trough Crossmatch 11/20/16 11/20/16 11/20/16 13:03 16:45 23:26 WBC RBC Hgb Hct MCV RDW Plt Count Lymph % (Auto) [place] % (Auto) [place] # Seg Neutrophils % Seg Neuts % (Manual) Lymphocytes % (Manual) Monocytes % (Manual) Basophils % (Manual) Nucleated RBC % Seg Neutrophils # Seg Neutrophils # Man Lymphocytes # (Manual) Monocytes # (Manual) Eosinophils # (Manual) Basophils # (Manual) PT INR APTT Heparin Anti-Xa Level POC ABG pH POC ABG pCO2 POC ABG pO2 Sodium Potassium Chloride Carbon Dioxide BUN Creatinine Glucose POC Glucose 113 H 168 H Calcium Phosphorus Magnesium AST Alkaline Phosphatase Troponin T C-Reactive Protein Total Protein Albumin Triglycerides HDL Cholesterol Lipase Vitamin B12 TSH Urine WBC (Auto) Urine Chloride Urine Total Protein Vancomycin Trough 45.8 H Crossmatch 11/21/16 11/21/16 11/21/16 05:00 05:27 09:50 WBC RBC Hgb Hct MCV RDW Plt Count Lymph % (Auto) [place] % (Auto) [place] # Seg Neutrophils % Seg Neuts % (Manual) Lymphocytes % (Manual) Monocytes % (Manual) Basophils % (Manual) Nucleated RBC % Seg Neutrophils # Seg Neutrophils # Man Lymphocytes # (Manual) Monocytes # (Manual) Eosinophils # (Manual) Basophils # (Manual) PT INR APTT Heparin Anti-Xa Level POC ABG pH POC ABG pCO2 POC ABG pO2 Sodium 133 L D Potassium Chloride Carbon Dioxide 19 L BUN Creatinine Glucose 280 H POC Glucose 222 H Calcium 7.4 L Phosphorus Magnesium AST Alkaline Phosphatase Troponin T C-Reactive Protein Total Protein Albumin Triglycerides HDL Cholesterol Lipase Vitamin B12 TSH Urine WBC (Auto) Urine Chloride Urine Total Protein Vancomycin Trough 30.4 H Crossmatch 11/21/16 11/21/16 11/21/16 12:36 17:17 18:34 WBC RBC Hgb Hct MCV RDW Plt Count Lymph % (Auto) [place] % (Auto) [place] # Seg Neutrophils % Seg Neuts % (Manual) Lymphocytes % (Manual) Monocytes % (Manual) Basophils % (Manual) Nucleated RBC % Seg Neutrophils # Seg Neutrophils # Man Lymphocytes # (Manual) Monocytes # (Manual) Eosinophils # (Manual) Basophils # (Manual) PT INR APTT Heparin Anti-Xa Level POC ABG pH POC ABG pCO2 POC ABG pO2 Sodium Potassium Chloride Carbon Dioxide BUN Creatinine Glucose POC Glucose 306 H 339 H 318 H Calcium Phosphorus Magnesium AST Alkaline Phosphatase Troponin T C-Reactive Protein Total Protein Albumin Triglycerides HDL Cholesterol Lipase Vitamin B12 TSH Urine WBC (Auto) Urine Chloride Urine Total Protein Vancomycin Trough Crossmatch 11/21/16 11/22/16 11/22/16 23:16 07:19 11:49 WBC 11.1 H RBC 2.60 L Hgb 7.8 L Hct 24.4 L MCV RDW 16.3 H Plt Count Lymph % (Auto) [place] % (Auto) [place] # Seg Neutrophils % 76.8 H Seg Neuts % (Manual) Lymphocytes % (Manual) Monocytes % (Manual) Basophils % (Manual) Nucleated RBC % Seg Neutrophils # 8.5 H Seg Neutrophils # Man Lymphocytes # (Manual) Monocytes # (Manual) Eosinophils # (Manual) Basophils # (Manual) PT INR APTT Heparin Anti-Xa Level POC ABG pH POC ABG pCO2 POC ABG pO2 Sodium Potassium Chloride Carbon Dioxide BUN Creatinine Glucose POC Glucose 286 H 371 H Calcium Phosphorus Magnesium AST Alkaline Phosphatase Troponin T C-Reactive Protein Total Protein Albumin Triglycerides HDL Cholesterol Lipase Vitamin B12 TSH Urine WBC (Auto) Urine Chloride Urine Total Protein Vancomycin Trough Crossmatch 11/22/16 11/22/16 11/22/16 11:50 11:50 17:34 WBC RBC Hgb Hct MCV RDW Plt Count Lymph % (Auto) [place] % (Auto) [place] # Seg Neutrophils % Seg Neuts % (Manual) Lymphocytes % (Manual) Monocytes % (Manual) Basophils % (Manual) Nucleated RBC % Seg Neutrophils # Seg Neutrophils # Man Lymphocytes # (Manual) Monocytes # (Manual) Eosinophils # (Manual) Basophils # (Manual) PT INR APTT Heparin Anti-Xa Level POC ABG pH POC ABG pCO2 POC ABG pO2 Sodium 130 L Potassium Chloride Carbon Dioxide 19 L BUN 20 H Creatinine Glucose 266 H POC Glucose 262 H 284 H Calcium 7.2 L Phosphorus Magnesium AST Alkaline Phosphatase Troponin T C-Reactive Protein Total Protein Albumin Triglycerides HDL Cholesterol Lipase Vitamin B12 TSH Urine WBC (Auto) Urine Chloride Urine Total Protein Vancomycin Trough Crossmatch 11/22/16 11/22/16 11/22/16 17:43 20:04 23:38 WBC RBC Hgb Hct MCV RDW Plt Count Lymph % (Auto) [place] % (Auto) [place] # Seg Neutrophils % Seg Neuts % (Manual) Lymphocytes % (Manual) Monocytes % (Manual) Basophils % (Manual) Nucleated RBC % Seg Neutrophils # Seg Neutrophils # Man Lymphocytes # (Manual) Monocytes # (Manual) Eosinophils # (Manual) Basophils # (Manual) PT INR APTT Heparin Anti-Xa Level POC ABG pH 7.492 H POC ABG pCO2 23.2 L POC ABG pO2 60 L Sodium Potassium Chloride Carbon Dioxide BUN Creatinine Glucose POC Glucose 261 H 253 H Calcium Phosphorus Magnesium AST Alkaline Phosphatase Troponin T C-Reactive Protein Total Protein Albumin Triglycerides HDL Cholesterol Lipase Vitamin B12 TSH Urine WBC (Auto) Urine Chloride Urine Total Protein Vancomycin Trough Crossmatch 11/23/16 11/23/16 11/23/16 06:27 08:20 11:54 WBC RBC Hgb 8.2 L Hct 24.9 L MCV RDW Plt Count Lymph % (Auto) [place] % (Auto) [place] # Seg Neutrophils % Seg Neuts % (Manual) Lymphocytes % (Manual) Monocytes % (Manual) Basophils % (Manual) Nucleated RBC % Seg Neutrophils # Seg Neutrophils # Man Lymphocytes # (Manual) Monocytes # (Manual) Eosinophils # (Manual) Basophils # (Manual) PT INR APTT Heparin Anti-Xa Level POC ABG pH POC ABG pCO2 POC ABG pO2 Sodium Potassium Chloride Carbon Dioxide BUN Creatinine Glucose POC Glucose 333 H 286 H Calcium Phosphorus Magnesium AST Alkaline Phosphatase Troponin T C-Reactive Protein Total Protein Albumin Triglycerides HDL Cholesterol Lipase Vitamin B12 TSH Urine WBC (Auto) Urine Chloride Urine Total Protein Vancomycin Trough Crossmatch 11/23/16 11/23/16 11/24/16 17:53 23:51 00:12 WBC RBC Hgb Hct MCV RDW Plt Count Lymph % (Auto) [place] % (Auto) [place] # Seg Neutrophils % Seg Neuts % (Manual) Lymphocytes % (Manual) Monocytes % (Manual) Basophils % (Manual) Nucleated RBC % Seg Neutrophils # Seg Neutrophils # Man Lymphocytes # (Manual) Monocytes # (Manual) Eosinophils # (Manual) Basophils # (Manual) PT INR APTT Heparin Anti-Xa Level POC ABG pH POC ABG pCO2 POC ABG pO2 Sodium Potassium Chloride Carbon Dioxide BUN Creatinine Glucose POC Glucose 195 H 214 H 223 H Calcium Phosphorus Magnesium AST Alkaline Phosphatase Troponin T C-Reactive Protein Total Protein Albumin Triglycerides HDL Cholesterol Lipase Vitamin B12 TSH Urine WBC (Auto) Urine Chloride Urine Total Protein Vancomycin Trough Crossmatch 11/24/16 11/24/16 11/24/16 04:50 04:50 06:08 WBC RBC 2.74 L Hgb 8.4 L Hct 26.1 L MCV RDW 16.0 H Plt Count Lymph % (Auto) [place] % (Auto) [place] # Seg Neutrophils % Seg Neuts % (Manual) Lymphocytes % (Manual) Monocytes % (Manual) Basophils % (Manual) Nucleated RBC % Seg Neutrophils # Seg Neutrophils # Man Lymphocytes # (Manual) Monocytes # (Manual) Eosinophils # (Manual) Basophils # (Manual) PT INR APTT Heparin Anti-Xa Level POC ABG pH POC ABG pCO2 POC ABG pO2 Sodium 133 L Potassium Chloride Carbon Dioxide 19 L BUN 23 H Creatinine Glucose 200 H POC Glucose 187 H Calcium 7.2 L Phosphorus Magnesium AST Alkaline Phosphatase Troponin T C-Reactive Protein Total Protein Albumin Triglycerides HDL Cholesterol Lipase Vitamin B12 TSH Urine WBC (Auto) Urine Chloride Urine Total Protein Vancomycin Trough Crossmatch 11/24/16 11/24/16 11/24/16 12:02 17:43 23:35 WBC RBC Hgb Hct MCV RDW Plt Count Lymph % (Auto) [place] % (Auto) [place] # Seg Neutrophils % Seg Neuts % (Manual) Lymphocytes % (Manual) Monocytes % (Manual) Basophils % (Manual) Nucleated RBC % Seg Neutrophils # Seg Neutrophils # Man Lymphocytes # (Manual) Monocytes # (Manual) Eosinophils # (Manual) Basophils # (Manual) PT INR APTT Heparin Anti-Xa Level POC ABG pH POC ABG pCO2 POC ABG pO2 Sodium Potassium Chloride Carbon Dioxide BUN Creatinine Glucose POC Glucose 250 H 226 H 230 H Calcium Phosphorus Magnesium AST Alkaline Phosphatase Troponin T C-Reactive Protein Total Protein Albumin Triglycerides HDL Cholesterol Lipase Vitamin B12 TSH Urine WBC (Auto) Urine Chloride Urine Total Protein Vancomycin Trough Crossmatch 11/25/16 11/25/16 11/25/16 05:47 11:37 18:00 WBC RBC Hgb Hct MCV RDW Plt Count Lymph % (Auto) [place] % (Auto) [place] # Seg Neutrophils % Seg Neuts % (Manual) Lymphocytes % (Manual) Monocytes % (Manual) Basophils % (Manual) Nucleated RBC % Seg Neutrophils # Seg Neutrophils # Man Lymphocytes # (Manual) Monocytes # (Manual) Eosinophils # (Manual) Basophils # (Manual) PT INR APTT Heparin Anti-Xa Level POC ABG pH POC ABG pCO2 POC ABG pO2 Sodium Potassium Chloride Carbon Dioxide BUN Creatinine Glucose POC Glucose 229 H 226 H 226 H Calcium Phosphorus Magnesium AST Alkaline Phosphatase Troponin T C-Reactive Protein Total Protein Albumin Triglycerides HDL Cholesterol Lipase Vitamin B12 TSH Urine WBC (Auto) Urine Chloride Urine Total Protein Vancomycin Trough Crossmatch 11/26/16 11/26/16 11/26/16 05:43 12:05 17:05 WBC RBC Hgb Hct MCV RDW Plt Count Lymph % (Auto) [place] % (Auto) [place] # Seg Neutrophils % Seg Neuts % (Manual) Lymphocytes % (Manual) Monocytes % (Manual) Basophils % (Manual) Nucleated RBC % Seg Neutrophils # Seg Neutrophils # Man Lymphocytes # (Manual) Monocytes # (Manual) Eosinophils # (Manual) Basophils # (Manual) PT INR APTT Heparin Anti-Xa Level POC ABG pH POC ABG pCO2 POC ABG pO2 Sodium Potassium Chloride Carbon Dioxide BUN Creatinine Glucose POC Glucose 262 H 260 H 193 H Calcium Phosphorus Magnesium AST Alkaline Phosphatase Troponin T C-Reactive Protein Total Protein Albumin Triglycerides HDL Cholesterol Lipase Vitamin B12 TSH Urine WBC (Auto) Urine Chloride Urine Total Protein Vancomycin Trough Crossmatch 11/26/16 11/27/16 11/27/16 23:46 05:49 12:36 WBC RBC Hgb Hct MCV RDW Plt Count Lymph % (Auto) [place] % (Auto) [place] # Seg Neutrophils % Seg Neuts % (Manual) Lymphocytes % (Manual) Monocytes % (Manual) Basophils % (Manual) Nucleated RBC % Seg Neutrophils # Seg Neutrophils # Man Lymphocytes # (Manual) Monocytes # (Manual) Eosinophils # (Manual) Basophils # (Manual) PT INR APTT Heparin Anti-Xa Level POC ABG pH POC ABG pCO2 POC ABG pO2 Sodium Potassium Chloride Carbon Dioxide BUN Creatinine Glucose POC Glucose 183 H 182 H 250 H Calcium Phosphorus Magnesium AST Alkaline Phosphatase Troponin T C-Reactive Protein Total Protein Albumin Triglycerides HDL Cholesterol Lipase Vitamin B12 TSH Urine WBC (Auto) Urine Chloride Urine Total Protein Vancomycin Trough Crossmatch 11/27/16 11/27/16 11/27/16 17:02 17:45 22:42 WBC RBC Hgb Hct MCV RDW Plt Count Lymph % (Auto) [place] % (Auto) [place] # Seg Neutrophils % Seg Neuts % (Manual) Lymphocytes % (Manual) Monocytes % (Manual) Basophils % (Manual) Nucleated RBC % Seg Neutrophils # Seg Neutrophils # Man Lymphocytes # (Manual) Monocytes # (Manual) Eosinophils # (Manual) Basophils # (Manual) PT INR APTT Heparin Anti-Xa Level POC ABG pH 7.331 L POC ABG pCO2 POC ABG pO2 46 L Sodium Potassium Chloride Carbon Dioxide BUN Creatinine Glucose POC Glucose 275 H Calcium Phosphorus Magnesium AST Alkaline Phosphatase Troponin T 0.093 H C-Reactive Protein Total Protein Albumin Triglycerides HDL Cholesterol Lipase Vitamin B12 TSH Urine WBC (Auto) Urine Chloride Urine Total Protein Vancomycin Trough Crossmatch 11/27/16 11/28/16 11/28/16 23:28 05:46 05:46 WBC RBC 2.88 L Hgb 8.9 L Hct 27.7 L MCV RDW 17.2 H Plt Count Lymph % (Auto) [place] % (Auto) [place] # Seg Neutrophils % Seg Neuts % (Manual) Lymphocytes % (Manual) Monocytes % (Manual) Basophils % (Manual) Nucleated RBC % Seg Neutrophils # Seg Neutrophils # Man Lymphocytes # (Manual) Monocytes # (Manual) Eosinophils # (Manual) Basophils # (Manual) PT 15.1 H INR 1.20 H APTT Heparin Anti-Xa Level POC ABG pH POC ABG pCO2 POC ABG pO2 Sodium Potassium Chloride Carbon Dioxide BUN Creatinine Glucose POC Glucose 237 H Calcium Phosphorus Magnesium AST Alkaline Phosphatase Troponin T C-Reactive Protein Total Protein Albumin Triglycerides HDL Cholesterol Lipase Vitamin B12 TSH Urine WBC (Auto) Urine Chloride Urine Total Protein Vancomycin Trough Crossmatch 11/28/16 11/28/16 11/28/16 05:46 05:46 05:56 WBC RBC Hgb Hct MCV RDW Plt Count Lymph % (Auto) [place] % (Auto) [place] # Seg Neutrophils % Seg Neuts % (Manual) Lymphocytes % (Manual) Monocytes % (Manual) Basophils % (Manual) Nucleated RBC % Seg Neutrophils # Seg Neutrophils # Man Lymphocytes # (Manual) Monocytes # (Manual) Eosinophils # (Manual) Basophils # (Manual) PT INR APTT Heparin Anti-Xa Level POC ABG pH POC ABG pCO2 POC ABG pO2 Sodium Potassium Chloride Carbon Dioxide 21 L BUN 27 H Creatinine Glucose 237 H POC Glucose 275 H Calcium 8.1 L Phosphorus Magnesium AST Alkaline Phosphatase Troponin T 0.090 H C-Reactive Protein Total Protein Albumin Triglycerides 154 H HDL Cholesterol 38 L Lipase Vitamin B12 TSH Urine WBC (Auto) Urine Chloride Urine Total Protein Vancomycin Trough Crossmatch 11/28/16 11/28/16 11/28/16 11:20 18:16 23:30 WBC RBC Hgb Hct MCV RDW Plt Count Lymph % (Auto) [place] % (Auto) [place] # Seg Neutrophils % Seg Neuts % (Manual) Lymphocytes % (Manual) Monocytes % (Manual) Basophils % (Manual) Nucleated RBC % Seg Neutrophils # Seg Neutrophils # Man Lymphocytes # (Manual) Monocytes # (Manual) Eosinophils # (Manual) Basophils # (Manual) PT INR APTT Heparin Anti-Xa Level POC ABG pH POC ABG pCO2 POC ABG pO2 Sodium Potassium Chloride Carbon Dioxide BUN Creatinine Glucose POC Glucose 277 H 222 H 143 H Calcium Phosphorus Magnesium AST Alkaline Phosphatase Troponin T C-Reactive Protein Total Protein Albumin Triglycerides HDL Cholesterol Lipase Vitamin B12 TSH Urine WBC (Auto) Urine Chloride Urine Total Protein Vancomycin Trough Crossmatch 11/29/16 11/29/16 11/29/16 04:46 05:42 12:10 WBC RBC Hgb Hct MCV RDW Plt Count Lymph % (Auto) [place] % (Auto) [place] # Seg Neutrophils % Seg Neuts % (Manual) Lymphocytes % (Manual) Monocytes % (Manual) Basophils % (Manual) Nucleated RBC % Seg Neutrophils # Seg Neutrophils # Man Lymphocytes # (Manual) Monocytes # (Manual) Eosinophils # (Manual) Basophils # (Manual) PT 16.7 H INR 1.36 H APTT Heparin Anti-Xa Level POC ABG pH POC ABG pCO2 POC ABG pO2 Sodium Potassium Chloride Carbon Dioxide BUN Creatinine Glucose POC Glucose 165 H 232 H Calcium Phosphorus Magnesium AST Alkaline Phosphatase Troponin T C-Reactive Protein Total Protein Albumin Triglycerides HDL Cholesterol Lipase Vitamin B12 TSH Urine WBC (Auto) Urine Chloride Urine Total Protein Vancomycin Trough Crossmatch 11/29/16 11/30/16 11/30/16 18:09 00:04 05:04 WBC RBC Hgb Hct MCV RDW Plt Count Lymph % (Auto) [place] % (Auto) [place] # Seg Neutrophils % Seg Neuts % (Manual) Lymphocytes % (Manual) Monocytes % (Manual) Basophils % (Manual) Nucleated RBC % Seg Neutrophils # Seg Neutrophils # Man Lymphocytes # (Manual) Monocytes # (Manual) Eosinophils # (Manual) Basophils # (Manual) PT 17.8 H INR 1.47 H APTT Heparin Anti-Xa Level POC ABG pH POC ABG pCO2 POC ABG pO2 Sodium Potassium Chloride Carbon Dioxide BUN Creatinine Glucose POC Glucose 214 H 110 H Calcium Phosphorus Magnesium AST Alkaline Phosphatase Troponin T C-Reactive Protein Total Protein Albumin Triglycerides HDL Cholesterol Lipase Vitamin B12 TSH Urine WBC (Auto) Urine Chloride Urine Total Protein Vancomycin Trough Crossmatch 11/30/16 11/30/16 11/30/16 05:46 11:59 17:51 WBC RBC Hgb Hct MCV RDW Plt Count Lymph % (Auto) [place] % (Auto) [place] # Seg Neutrophils % Seg Neuts % (Manual) Lymphocytes % (Manual) Monocytes % (Manual) Basophils % (Manual) Nucleated RBC % Seg Neutrophils # Seg Neutrophils # Man Lymphocytes # (Manual) Monocytes # (Manual) Eosinophils # (Manual) Basophils # (Manual) PT INR APTT Heparin Anti-Xa Level POC ABG pH POC ABG pCO2 POC ABG pO2 Sodium Potassium Chloride Carbon Dioxide BUN Creatinine Glucose POC Glucose 118 H 163 H 134 H Calcium Phosphorus Magnesium AST Alkaline Phosphatase Troponin T C-Reactive Protein Total Protein Albumin Triglycerides HDL Cholesterol Lipase Vitamin B12 TSH Urine WBC (Auto) Urine Chloride Urine Total Protein Vancomycin Trough Crossmatch 11/30/16 12/01/16 12/01/16 23:48 05:43 07:25 WBC RBC Hgb Hct MCV RDW Plt Count Lymph % (Auto) [place] % (Auto) [place] # Seg Neutrophils % Seg Neuts % (Manual) Lymphocytes % (Manual) Monocytes % (Manual) Basophils % (Manual) Nucleated RBC % Seg Neutrophils # Seg Neutrophils # Man Lymphocytes # (Manual) Monocytes # (Manual) Eosinophils # (Manual) Basophils # (Manual) PT 19.6 H INR 1.66 H APTT Heparin Anti-Xa Level POC ABG pH POC ABG pCO2 POC ABG pO2 Sodium Potassium Chloride Carbon Dioxide BUN Creatinine Glucose POC Glucose 127 H 161 H Calcium Phosphorus Magnesium AST Alkaline Phosphatase Troponin T C-Reactive Protein Total Protein Albumin Triglycerides HDL Cholesterol Lipase Vitamin B12 TSH Urine WBC (Auto) Urine Chloride Urine Total Protein Vancomycin Trough Crossmatch 12/01/16 12/01/16 12/01/16 11:45 17:24 23:42 WBC RBC Hgb Hct MCV RDW Plt Count Lymph % (Auto) [place] % (Auto) [place] # Seg Neutrophils % Seg Neuts % (Manual) Lymphocytes % (Manual) Monocytes % (Manual) Basophils % (Manual) Nucleated RBC % Seg Neutrophils # Seg Neutrophils # Man Lymphocytes # (Manual) Monocytes # (Manual) Eosinophils # (Manual) Basophils # (Manual) PT INR APTT Heparin Anti-Xa Level POC ABG pH POC ABG pCO2 POC ABG pO2 Sodium Potassium Chloride Carbon Dioxide BUN Creatinine Glucose POC Glucose 187 H 113 H 132 H Calcium Phosphorus Magnesium AST Alkaline Phosphatase Troponin T C-Reactive Protein Total Protein Albumin Triglycerides HDL Cholesterol Lipase Vitamin B12 TSH Urine WBC (Auto) Urine Chloride Urine Total Protein Vancomycin Trough Crossmatch 12/02/16 12/02/16 12/02/16 05:07 05:14 11:31 WBC RBC Hgb Hct MCV RDW Plt Count Lymph % (Auto) [place] % (Auto) [place] # Seg Neutrophils % Seg Neuts % (Manual) Lymphocytes % (Manual) Monocytes % (Manual) Basophils % (Manual) Nucleated RBC % Seg Neutrophils # Seg Neutrophils # Man Lymphocytes # (Manual) Monocytes # (Manual) Eosinophils # (Manual) Basophils # (Manual) PT 20.3 H INR 1.74 H APTT Heparin Anti-Xa Level POC ABG pH POC ABG pCO2 POC ABG pO2 Sodium Potassium Chloride Carbon Dioxide BUN Creatinine Glucose POC Glucose 172 H 209 H Calcium Phosphorus Magnesium AST Alkaline Phosphatase Troponin T C-Reactive Protein Total Protein Albumin Triglycerides HDL Cholesterol Lipase Vitamin B12 TSH Urine WBC (Auto) Urine Chloride Urine Total Protein Vancomycin Trough Crossmatch 12/02/16 12/02/16 12/03/16 13:59 17:30 04:00 WBC RBC Hgb 7.9 L Hct 25.1 L MCV RDW Plt Count Lymph % (Auto) [place] % (Auto) [place] # Seg Neutrophils % Seg Neuts % (Manual) Lymphocytes % (Manual) Monocytes % (Manual) Basophils % (Manual) Nucleated RBC % Seg Neutrophils # Seg Neutrophils # Man Lymphocytes # (Manual) Monocytes # (Manual) Eosinophils # (Manual) Basophils # (Manual) PT INR APTT Heparin Anti-Xa Level POC ABG pH POC ABG pCO2 POC ABG pO2 Sodium Potassium Chloride Carbon Dioxide BUN Creatinine Glucose POC Glucose 200 H 160 H Calcium Phosphorus Magnesium AST Alkaline Phosphatase Troponin T C-Reactive Protein Total Protein Albumin Triglycerides HDL Cholesterol Lipase Vitamin B12 TSH Urine WBC (Auto) Urine Chloride Urine Total Protein Vancomycin Trough Crossmatch 12/03/16 12/03/16 05:27 05:29 WBC RBC Hgb Hct MCV RDW Plt Count Lymph % (Auto) [place] % (Auto) [place] # Seg Neutrophils % Seg Neuts % (Manual) Lymphocytes % (Manual) Monocytes % (Manual) Basophils % (Manual) Nucleated RBC % Seg Neutrophils # Seg Neutrophils # Man Lymphocytes # (Manual) Monocytes # (Manual) Eosinophils # (Manual) Basophils # (Manual) PT 19.6 H INR 1.66 H APTT Heparin Anti-Xa Level POC ABG pH POC ABG pCO2 POC ABG pO2 Sodium Potassium Chloride Carbon Dioxide BUN Creatinine Glucose POC Glucose 149 H Calcium Phosphorus Magnesium AST Alkaline Phosphatase Troponin T C-Reactive Protein Total Protein Albumin Triglycerides HDL Cholesterol Lipase Vitamin B12 TSH Urine WBC (Auto) Urine Chloride Urine Total Protein Vancomycin Trough Crossmatch Chest x-ray: pending Allied health notes reviewed: RT
[2016-12-03] MEDS: LOVENOX SUB-Q SCH ×2 (11:54→13:00)
--- NOTE | 2016-12-03 13:11 | Progress Note ---
Assessment and Plan Assessment and plan: Patient is a 66-year-old woman who presented with lethargy and altered mental status with possible anoxic injury unknown duration of how long she was down for she deteriorated and was intubated in emergency room, she was managed for DKA and she also developed sepsis due to UTI and right lower extremity ischemia- > Cold right foot which I discovered on Rounds on 10/17/16 and I asked the nurse for the bedside doppler which showed no pulse, My exam on the morning of morning has changed, she had a pulse right foot. Arterial duplex revealed a proximal right superficial femoral artery occlusion. I consulted and discussed with Vascular surgery, Dr. Eller ==>Acute ischemic right foot. 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 Remained very difficult to wean from the vent. Although eventually was tolerating pressure support. She subsequently went into cardiac arrest was resuscitated but this time was not able to recover back to following commands as previous before second cardiac arrest. Heparin was discontinued due to CPR. Vascular did not feel at this time that for reactivation of the right lower extremity was needed. Imaging studies were consented for anoxic encephalopathy and cortical irritability although no diagnosis of brain was noted. Dr. Mcclure discussed with family extensively and has informed them about real possibility of not having any meaningful neurological recovery. They agreed with transfer to a skilled facility with vent Ability. Case management is working and is meantime we'll continue current therapy and management. -S/P cardiopulomary arrest x 2 -A/C respiratory failure with hypercapnea -Seizure-Per family prior hx -DM, s/p DKA -Hyponatremia -Acute limb ischemia of right lower ext due to SFA thrombosis- s/p right BKA -LUCY/CKD 3 likely vasomotor nephropathy-resolved -Sepsis, Strept Group B tracheobronchitis, poa- Multifactorial -Anemia of chronic disease -Hematuria -Metabolic acidosis -Severe Hypokalemia-RESOLVED -Pancreatitis, acute, poa -Vaginal candidiasis -Hypernatremia -MSOF, poa Plan: * s/p EEG - findings consistent with anoxic encephalopathy and cortical irritability * Neurology notes intact brain stem * PSV as tolerated * Family updated about the very real possibility of not having any meaningful neurological recovery. all questions answered. Family meeting with daughter, and grandchild with greatgrand child in attendance. Case mangement and oncology social worker and bedside nurse were also present. * Poor prognosis. * Plan for transfer to half-way acute care facility pending * MRI brain with no gross abnormality * adjust insulin therapy * Neurologic input noted. EEG abnormal. * Heparin had to be held due to the risk associated considering recent CPR with chest compressions. * vascular following up on right BKA remains poor prognosis and likely will need a conversion to AKA. * Continue subcutaneous insulin and electrolyte replacement * Continue Cardizem and beta juan antonio * Monitor electrolytes and hemoglobin. * continue dilantin * DVT and GI prophylaxis New issue: ACUTE DVT IN THE RT.AXILLARY VEIN EXTENDING TO THE RT.BRACHIAL VEIN.RN INFORMED. Treat with therapeutic anticoagulation new issue: lungs more congested. Disposition: Placement? snf with vent capabilities vs ltach. [facility], just waiting on bed Poor prognosis History Interval history: Patient seen and examined. Follow up on respiratory failure, still intubated. Overnight uneventful. Imaging, old records, testing, labs, nursing notes reviewed. at bedside Hospitalist Physical - Physical exam Narrative exam: GEN: Intubated CVS: RRR, NORMAL S1S2 LUNGS/CHEST: Tachypnea NORMAL CHEST EXPANSION B, GOOD AIR ENTRY B ABD: SOFT +peg, GBS, NO REBOUND OR GUARDING NEURO: CN 2-12 GROSSLY INTACT, doesn't follow commands, eyes wondering PSY: Anxious New issue: right bka, tracheostomy and peg present - Constitutional Vitals: Temp Pulse Resp BP Pulse Ox 98.8 F 87 30 H 166/76 99 12/03/16 08:00 12/03/16 12:00 12/03/16 12:00 12/03/16 12:00 12/03/16 12:00 General appearance: Present: no acute distress Results - Labs CBC & Chem 7: 12/02/16 13:59 11/28/16 05:46 Labs: Laboratory Last Values WBC 10.5 K/mm3 (4.5-11.0) 11/28/16 05:46 RBC 2.88 M/mm3 (3.65-5.03) L 11/28/16 05:46 Hgb 7.9 gm/dl (10.1-14.3) L 12/02/16 13:59 Hct 25.1 % (30.3-42.9) L 12/02/16 13:59 MCV 96 fl (79-97) 11/28/16 05:46 MCH 31 pg (28-32) 11/28/16 05:46 MCHC 32 % (30-34) 11/28/16 05:46 RDW 17.2 % (13.2-15.2) H 11/28/16 05:46 Plt Count 391 K/mm3 (140-440) 11/28/16 05:46 Lymph % (Auto) 14.8 % (13.4-35.0) 11/22/16 11:49 [place] % (Auto) 6.7 % (0.0-7.3) 11/22/16 11:49 Eos % (Auto) 1.1 % (0.0-4.3) 11/22/16 11:49 Baso % (Auto) 0.6 % (0.0-1.8) 11/22/16 11:49 Lymph # 1.6 K/mm3 (1.2-5.4) 11/22/16 11:49 [place] # 0.7 K/mm3 (0.0-0.8) 11/22/16 11:49 Eos # 0.1 K/mm3 (0.0-0.4) 11/22/16 11:49 Baso # 0.1 K/mm3 (0.0-0.1) 11/22/16 11:49 Add Manual Diff Complete 11/18/16 13:00 Total Counted 100 11/18/16 13:00 Seg Neutrophils % 76.8 % (40.0-70.0) H 11/22/16 11:49 Seg Neuts % (Manual) 90.0 % (40.0-70.0) H 11/18/16 13:00 Band Neutrophils % 0 % 11/18/16 13:00 Lymphocytes % (Manual) 8.0 % (13.4-35.0) L 11/18/16 13:00 Reactive Lymphs % (Man) 0 % 11/18/16 13:00 Monocytes % (Manual) 2.0 % (0.0-7.3) 11/18/16 13:00 Eosinophils % (Manual) 0 % (0.0-4.3) 11/18/16 13:00 Basophils % (Manual) 0 % (0.0-1.8) 11/18/16 13:00 Metamyelocytes % 0 % 11/18/16 13:00 Myelocytes % 0 % 11/18/16 13:00 Promyelocytes % 0 % 11/18/16 13:00 Blast Cells % 0 % 11/18/16 13:00 Nucleated RBC % Not Reportable 11/18/16 13:00 Seg Neutrophils # 8.5 K/mm3 (1.8-7.7) H 11/22/16 11:49 Seg Neutrophils # Man 11.3 K/mm3 (1.8-7.7) H 11/18/16 13:00 Band Neutrophils # 0.0 K/mm3 11/18/16 13:00 Lymphocytes # (Manual) 1.0 K/mm3 (1.2-5.4) L 11/18/16 13:00 Abs React Lymphs (Man) 0.0 K/mm3 11/18/16 13:00 Monocytes # (Manual) 0.3 K/mm3 (0.0-0.8) 11/18/16 13:00 Eosinophils # (Manual) 0.0 K/mm3 (0.0-0.4) 11/18/16 13:00 Basophils # (Manual) 0.0 K/mm3 (0.0-0.1) 11/18/16 13:00 Metamyelocytes # 0.0 K/mm3 11/18/16 13:00 Myelocytes # 0.0 K/mm3 11/18/16 13:00 Promyelocytes # 0.0 K/mm3 11/18/16 13:00 Blast Cells # 0.0 K/mm3 11/18/16 13:00 Pathologist Review 10/29/16 09:30 WBC Morphology Not Reportable 11/18/16 13:00 Hypersegmented Neuts Not Reportable 11/18/16 13:00 Hyposegmented Neuts Not Reportable 11/18/16 13:00 Hypogranular Neuts Not Reportable 11/18/16 13:00 Hypersegmented Polys TNR 10/17/16 07:08 Smudge Cells Not Reportable 11/18/16 13:00 Toxic Granulation Not Reportable 11/18/16 13:00 Toxic Vacuolation Not Reportable 11/18/16 13:00 Dohle Bodies Not Reportable 11/18/16 13:00 Pelger-Huet Anomaly Not Reportable 11/18/16 13:00 Alka Rods Not Reportable 11/18/16 13:00 Platelet Estimate Consistent w auto 11/18/16 13:00 Clumped Platelets Not Reportable 11/18/16 13:00 Plt Clumps, EDTA Not Reportable 11/18/16 13:00 Large Platelets Not Reportable 11/18/16 13:00 Giant Platelets Not Reportable 11/18/16 13:00 Platelet Satelliting Not Reportable 11/18/16 13:00 Plt Morphology Comment Not Reportable 11/18/16 13:00 RBC Morphology Not Reportable 11/18/16 13:00 Dimorphic RBCs Not Reportable 11/18/16 13:00 Polychromasia Not Reportable 11/18/16 13:00 Hypochromasia Not Reportable 11/18/16 13:00 Poikilocytosis Not Reportable 11/18/16 13:00 Basophilic Stippling TNR 10/17/16 07:08 Anisocytosis 1+ 11/18/16 13:00 Microcytosis Not Reportable 11/18/16 13:00 Macrocytosis Not Reportable 11/18/16 13:00 Spherocytes Not Reportable 11/18/16 13:00 Pappenheimer Bodies Not Reportable 11/18/16 13:00 Sickle Cells Not Reportable 11/18/16 13:00 Target Cells Not Reportable 11/18/16 13:00 Tear Drop Cells Not Reportable 11/18/16 13:00 Ovalocytes Not Reportable 11/18/16 13:00 Stomatocytes Few 11/03/16 00:05 Helmet Cells Not Reportable 11/18/16 13:00 [place] Bodies Not Reportable 11/18/16 13:00 [place] Rings Not Reportable 11/18/16 13:00 [place] Cells Not Reportable 11/18/16 13:00 Bite Cells Not Reportable 11/18/16 13:00 Crenated Cell Not Reportable 11/18/16 13:00 Elliptocytes Not Reportable 11/18/16 13:00 Acanthocytes (Spur) Not Reportable 11/18/16 13:00 Rouleaux Not Reportable 11/18/16 13:00 Hemoglobin C Crystals Not Reportable 11/18/16 13:00 Schistocytes Not Reportable 11/18/16 13:00 Malaria parasites Not Reportable 11/18/16 13:00 David Bodies Not Reportable 11/18/16 13:00 Hem Pathologist Commnt No 11/18/16 13:00 PT 19.6 Sec. (12.2-14.9) H 12/03/16 05:27 INR 1.66 (0.87-1.13) H 12/03/16 05:27 APTT 131.1 Sec. (24.2-36.6) H* 11/18/16 05:45 Heparin Anti-Xa Level 0.51 U.I./ml (0.3-0.7) 11/18/16 11:16 POC ABG pH 7.331 (7.35-7.45) L 11/27/16 17:45 POC ABG pCO2 38.1 (35-45) 11/27/16 17:45 POC ABG pO2 46 (80-105) L 11/27/16 17:45 POC ABG HCO3 20.1 11/27/16 17:45 POC ABG Total CO2 21 11/27/16 17:45 POC ABG O2 Sat 79 11/27/16 17:45 POC ABG Base Excess -6 11/27/16 17:45 VBG pH 7.020 (7.320-7.420) L* 10/13/16 04:22 FiO2 40 % 11/27/16 17:45 Sodium 141 mmol/L (137-145) D 11/28/16 05:46 Potassium 4.2 mmol/L (3.6-5.0) 11/28/16 05:46 Chloride 105.4 mmol/L (98-107) 11/28/16 05:46 Carbon Dioxide 21 mmol/L (22-30) L 11/28/16 05:46 Anion Gap 19 mmol/L 11/28/16 05:46 BUN 27 mg/dL (7-17) H 11/28/16 05:46 Creatinine 0.8 mg/dL (0.7-1.2) 11/28/16 05:46 Estimated GFR > 60 ml/min 11/28/16 05:46 BUN/Creatinine Ratio 33.75 % 11/28/16 05:46 Glucose 237 mg/dL (65-100) H 11/28/16 05:46 POC Glucose 149 (70-105) H 12/03/16 05:29 Osmolality 332 Mosm/kg 10/14/16 07:03 Lactic Acid 1.8 mmol/L (0.7-2.0) 10/14/16 07:03 Calcium 8.1 mg/dL (8.4-10.2) L 11/28/16 05:46 Phosphorus 2.7 mg/dL (2.5-4.5) D 10/21/16 Unknown Magnesium 2.0 mg/dL (1.7-2.3) 11/20/16 05:00 Total Bilirubin 0.2 mg/dL (0.1-1.2) 11/19/16 04:30 AST 9 units/L (5-40) 11/19/16 04:30 ALT 7 units/L (7-56) 11/19/16 04:30 Alkaline Phosphatase 82 units/L (35-129) 11/19/16 04:30 Ammonia 35.0 umol/L (25-60) 10/13/16 05:40 Total Creatine Kinase 107 units/L (30-135) 10/13/16 04:22 CK-MB (CK-2) 3.1 ng/mL (0.0-4.0) 10/13/16 04:22 CK-MB (CK-2) Rel Index 2.8 (0-4) 10/13/16 04:22 Troponin T 0.090 ng/mL (0.00-0.029) H 11/28/16 05:46 C-Reactive Protein 10.50 mg/dL (0.00-1.30) H 10/13/16 16:14 Total Protein 5.5 g/dL (6.3-8.2) L 11/19/16 04:30 Albumin 2.1 g/dL (3.9-5) L 11/19/16 04:30 Albumin/Globulin Ratio 0.6 % 11/19/16 04:30 Triglycerides 154 mg/dL (2-149) H 11/28/16 05:46 Cholesterol 128 mg/dL (50-199) 11/28/16 05:46 LDL Cholesterol Direct 60 mg/dL (50-130) 11/28/16 05:46 HDL Cholesterol 38 mg/dL (40-59) L 11/28/16 05:46 Cholesterol/HDL Ratio 3.36 % 11/28/16 05:46 Amylase 30 units/L (27-131) 11/10/16 04:30 Lipase 41 units/L (13-60) 11/10/16 04:30 Vitamin B12 976.8 pg/mL (211-911) H 10/22/16 10:25 TSH 0.162 mlU/mL (0.270-4.200) L 10/22/16 14:50 Free T4 0.77 ng/dL (0.76-1.46) 10/22/16 14:50 Urine Color Yellow (Yellow) 11/14/16 19:39 Urine Turbidity Cloudy (Clear) 11/14/16 19:39 Urine pH 6.0 (5.0-7.0) 11/14/16 19:39 Ur Specific [place] 1.010 (1.003-1.030) 11/14/16 19:39 Urine Protein 30 mg/dl mg/dL (Negative) 11/14/16 19:39 Urine Glucose (UA) 50 mg/dL (Negative) 11/14/16 19:39 Urine Ketones 20 mg/dL (Negative) 11/14/16 19:39 Urine Blood Lg (Negative) 11/14/16 19:39 Urine Nitrite Neg (Negative) 11/14/16 19:39 Urine Bilirubin Neg (Negative) 11/14/16 19:39 Urine Urobilinogen < 2.0 mg/dL (<2.0) 11/14/16 19:39 Ur Leukocyte Esterase Sm (Negative) 11/14/16 19:39 Urine WBC (Auto) 3.0 /HPF (0.0-6.0) 11/14/16 19:39 Urine RBC (Auto) > 182.0 /HPF (0.0-6.0) 11/14/16 19:39 U Epithel Cells (Auto) 1.0 /HPF (0-13.0) 10/15/16 11:05 Urine Bacteria (Auto) 1+ /HPF (Negative) 11/14/16 19:39 Urine Mucus Few /HPF 11/14/16 19:39 Urine Yeast (Budding) 2+ /HPF 10/15/16 11:05 Urine Osmolality 487 Mosm/kg 10/13/16 Unknown Urine Creatinine < 4.2 mg/dL (0.1-20.0) 10/13/16 Unknown Protein/Creatinin Ratio 0.00 10/13/16 Unknown Urine Sodium 10 mEq/L 10/13/16 Unknown Urine Potassium 1.00 mEq/L 10/13/16 Unknown Urine Chloride 10.0 mEq/L (110-250) L 10/13/16 Unknown Urine Total Protein < 4 mg/dL (5-11.8) L 10/13/16 Unknown Vancomycin Trough 30.4 ug/mL (5.0-20.0) H 11/21/16 09:50 Random Vancomycin 20.8 ug/mL (0-40.0) 11/23/16 04:00 Ketones 107.3 mg/dL (0.2-2.8) H 10/13/16 04:22 Blood Type A POSITIVE 11/03/16 18:01 Antibody Screen Negative 11/03/16 18:01 Crossmatch See Detail 11/03/16 18:01
[2016-12-03] MEDS: DURAGESIC TD SCH (14:09)
[2016-12-04 06:55] LABS: INR 1.27 (0.87-1.13)
[2016-12-04] MEDS: DILANTIN IV SCH (06:56)
[2016-12-04] MEDS: LOPRESSOR PO SCH ×3 (08:52→23:23)
--- NOTE | 2016-12-04 09:20 | XRay Report ---
AP CHEST: HISTORY: Followup pneumonia No significant change in the bilateral infiltrates or pulmonary edema is demonstrated since 11/27/16. Heart size is stable. No large pleural effusion or pneumothorax. The tracheostomy remains in good position. IMPRESSION: No significant change.
[2016-12-04] MEDS: LOVENOX SUB-Q SCH (09:57)
[2016-12-04] MEDS: ZESTRIL PO SCH (09:57)
[2016-12-04] MEDS: PEPCID PO SCH ×2 (09:57→23:24)
[2016-12-04] MEDS: PLAVIX PO SCH (09:57)
[2016-12-04] MEDS: LEVEMIR SUB-Q SCH (09:58)
--- NOTE | 2016-12-04 12:08 | Progress Note ---
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 weaning likelyhood even poorer - continue PSV trials as tolerated - continue to rest on AC qhs during wean - repeat CXR reviewed and diuresis resumed (lasix 20mg IV q12h X 4 doses) (2) Altered mental status Current Visit: Yes Status: Acute Qualifiers: Altered mental status type: A Coma depth: C Coma timing: C Plan to address problem: - likely anoxic encephalopathy at this point - no active grand-mal seizures - seen by neurology and will follow their recommendations - reviewed EEG and MRI reports and appears overall prognosis guarded at best - continue dilantin (3) LUCY (acute kidney injury) Current Visit: Yes Status: Acute Plan to address problem: - resolved - following I's & O's - tube feeds restarted and tolerating well so far - lasix resumed today (4) DKA (diabetic ketoacidoses) Current Visit: Yes Status: Acute Qualifiers: Diabetes mellitus type: D Diabetes mellitus complication detail: D Plan to address problem: - resolved - continue SSI - continue levemir (5) Sepsis Current Visit: No Status: Acute Qualifiers: Sepsis type: S Plan to address problem: - off antibiotics now - follow clinically - trend lactate and CRP prn (6) Emesis Current Visit: Yes Status: Acute Qualifiers: Vomiting type: V Vomiting Intractability: V Nausea presence: N Plan to address problem: - continue aspiration precautions - GI input appreciated - resolved - off reglan now (7) Discharge planning issues Current Visit: Yes Status: Acute Plan to address problem: - cardiac arrest and potential anoxic encephalopathy makes prognosis more guarded now - LTAC evaluation ongoing still ...for now remains critically ill on life sustaining treatments including MVS and at high risk for further deterioration including ...32' CCT Subjective Date of service: 12/04/16 Principal diagnosis: respiratory failure on mechanical ventilatory support, DKA Interval history: Seen and examined at bedside; 24 hour events reviewed; nursing and respiratory care staff consulted; no adverse overnight events reported to me; remains on MVS ; CXR reviewed and still consistent with persistent but improved pulmonary edema ; in room; no emesis or overt aspiration Objective Vital Signs - 12hr 12/04/16 12/04/16 12/04/16 00:30 01:00 01:30 Temperature Pulse Rate 74 75 78 Pulse Rate [ From Monitor] Respiratory 22 25 H 22 Rate Blood Pressure 138/64 142/65 144/65 O2 Sat by Pulse 100 100 100 Oximetry O2 Sat by Pulse Oximetry [ Assessment] 12/04/16 12/04/16 12/04/16 02:00 02:30 03:00 Temperature Pulse Rate 78 79 79 Pulse Rate [ From Monitor] Respiratory 25 H 19 22 Rate Blood Pressure 143/64 159/83 147/67 O2 Sat by Pulse 100 100 Oximetry O2 Sat by Pulse Oximetry [ Assessment] 12/04/16 12/04/16 12/04/16 03:28 03:30 04:00 Temperature 99.4 F Pulse Rate 81 81 82 Pulse Rate [ From Monitor] Respiratory 25 H 28 H Rate Blood Pressure 168/104 154/67 151/73 O2 Sat by Pulse 100 100 100 Oximetry O2 Sat by Pulse Oximetry [ Assessment] 12/04/16 12/04/16 12/04/16 04:30 05:00 05:30 Temperature Pulse Rate 82 82 81 Pulse Rate [ From Monitor] Respiratory 21 22 20 Rate Blood Pressure 152/72 153/72 158/75 O2 Sat by Pulse 100 100 99 Oximetry O2 Sat by Pulse Oximetry [ Assessment] 12/04/16 12/04/16 12/04/16 06:00 06:30 07:00 Temperature Pulse Rate 81 84 84 Pulse Rate [ From Monitor] Respiratory 18 25 H 17 Rate Blood Pressure 159/71 159/74 166/86 O2 Sat by Pulse 100 97 98 Oximetry O2 Sat by Pulse Oximetry [ Assessment] 12/04/16 12/04/16 12/04/16 07:15 07:30 08:00 Temperature 98.7 F Pulse Rate 82 80 81 Pulse Rate [ 82 From Monitor] Respiratory 16 22 Rate Blood Pressure 166/86 162/73 160/70 O2 Sat by Pulse 98 99 99 Oximetry O2 Sat by Pulse 98 Oximetry [ Assessment] 12/04/16 12/04/16 12/04/16 08:30 09:00 09:30 Temperature Pulse Rate 80 81 76 Pulse Rate [ From Monitor] Respiratory 22 18 17 Rate Blood Pressure 158/72 161/68 159/71 O2 Sat by Pulse 100 100 100 Oximetry O2 Sat by Pulse Oximetry [ Assessment] 12/04/16 12/04/16 12/04/16 09:57 10:00 10:14 Temperature Pulse Rate 74 78 77 Pulse Rate [ From Monitor] Respiratory 27 H Rate Blood Pressure 156/70 158/74 165/84 O2 Sat by Pulse 99 99 Oximetry O2 Sat by Pulse Oximetry [ Assessment] 12/04/16 12/04/16 12/04/16 10:30 11:00 11:30 Temperature Pulse Rate 78 81 85 Pulse Rate [ From Monitor] Respiratory 35 H 34 H 23 Rate Blood Pressure 160/73 165/79 171/79 O2 Sat by Pulse 100 100 100 Oximetry O2 Sat by Pulse Oximetry [ Assessment] Constitutional: no acute distress, other ( Patient likely has anoxic encephalopathy) Eyes: non-icteric ENT: oropharynx moist Neck: supple, no lymphadenopathy, no JVD Effort: mildly labored Ascultation: Bilateral: diminished breath sounds, rales Cardiovascular: regular rate and rhythm, other (S1,S2, No murmurs) Gastrointestinal: normoactive bowel sounds, soft, non-distended, other ( Gastrostomy tube) Integumentary: normal Extremities: no cyanosis, no edema, no ischemia or petechiae, other (s/p right BKA. right UExt Edema) Neurologic: unable to assess, other (encephalopathic) Psychiatric: other (encephalopathic) CBC and BMP: 12/02/16 13:59 12/04/16 13:12 ABG, PT/INR, D-dimer: ABG POC ABG pH 7.331 (7.35-7.45) L 11/27/16 17:45 POC ABG pCO2 38.1 (35-45) 11/27/16 17:45 POC ABG pO2 46 (80-105) L 11/27/16 17:45 POC ABG HCO3 20.1 11/27/16 17:45 POC ABG Total CO2 21 11/27/16 17:45 POC ABG O2 Sat 79 11/27/16 17:45 PT/INR, D-dimer PT 15.8 Sec. (12.2-14.9) H 12/04/16 05:20 INR 1.27 (0.87-1.13) H 12/04/16 05:20 Abnormal lab findings: Abnormal Labs 10/13/16 10/13/16 10/13/16 06:38 06:38 07:23 WBC RBC Hgb Hct MCV RDW Plt Count Lymph % (Auto) [place] % (Auto) [place] # Seg Neutrophils % Seg Neuts % (Manual) Lymphocytes % (Manual) Monocytes % (Manual) Basophils % (Manual) Nucleated RBC % Seg Neutrophils # Seg Neutrophils # Man Lymphocytes # (Manual) Monocytes # (Manual) Eosinophils # (Manual) Basophils # (Manual) PT INR APTT Heparin Anti-Xa Level POC ABG pH POC ABG pCO2 POC ABG pO2 Sodium Potassium 6.2 H* Chloride Carbon Dioxide 8 L* BUN 85 H Creatinine 2.8 H Glucose 602 H* POC Glucose 495 H Calcium 7.9 L Phosphorus 6.9 H D Magnesium 3.0 H AST Alkaline Phosphatase Troponin T C-Reactive Protein Total Protein Albumin Triglycerides HDL Cholesterol Lipase Vitamin B12 TSH Urine WBC (Auto) Urine Chloride Urine Total Protein Vancomycin Trough Crossmatch 10/13/16 10/13/16 10/13/16 08:49 08:55 10:12 WBC RBC Hgb Hct MCV RDW Plt Count Lymph % (Auto) [place] % (Auto) [place] # Seg Neutrophils % Seg Neuts % (Manual) Lymphocytes % (Manual) Monocytes % (Manual) Basophils % (Manual) Nucleated RBC % Seg Neutrophils # Seg Neutrophils # Man Lymphocytes # (Manual) Monocytes # (Manual) Eosinophils # (Manual) Basophils # (Manual) PT INR APTT Heparin Anti-Xa Level POC ABG pH POC ABG pCO2 POC ABG pO2 Sodium Potassium 5.6 H Chloride Carbon Dioxide 11 L BUN 77 H Creatinine 2.7 H Glucose 457 H POC Glucose > 500 H 424 H Calcium 8.0 L Phosphorus Magnesium AST Alkaline Phosphatase Troponin T C-Reactive Protein Total Protein Albumin Triglycerides HDL Cholesterol Lipase Vitamin B12 TSH Urine WBC (Auto) Urine Chloride Urine Total Protein Vancomycin Trough Crossmatch 10/13/16 10/13/16 10/13/16 10:44 11:22 12:20 WBC RBC Hgb Hct MCV RDW Plt Count Lymph % (Auto) [place] % (Auto) [place] # Seg Neutrophils % Seg Neuts % (Manual) Lymphocytes % (Manual) Monocytes % (Manual) Basophils % (Manual) Nucleated RBC % Seg Neutrophils # Seg Neutrophils # Man Lymphocytes # (Manual) Monocytes # (Manual) Eosinophils # (Manual) Basophils # (Manual) PT INR APTT Heparin Anti-Xa Level POC ABG pH POC ABG pCO2 POC ABG pO2 Sodium Potassium 5.4 H Chloride Carbon Dioxide 14 L BUN 72 H Creatinine 2.6 H Glucose 383 H POC Glucose 391 H 313 H Calcium 8.2 L Phosphorus Magnesium AST Alkaline Phosphatase Troponin T C-Reactive Protein Total Protein Albumin Triglycerides HDL Cholesterol Lipase Vitamin B12 TSH Urine WBC (Auto) Urine Chloride Urine Total Protein Vancomycin Trough Crossmatch 10/13/16 10/13/16 10/13/16 13:32 14:44 15:57 WBC RBC Hgb Hct MCV RDW Plt Count Lymph % (Auto) [place] % (Auto) [place] # Seg Neutrophils % Seg Neuts % (Manual) Lymphocytes % (Manual) Monocytes % (Manual) Basophils % (Manual) Nucleated RBC % Seg Neutrophils # Seg Neutrophils # Man Lymphocytes # (Manual) Monocytes # (Manual) Eosinophils # (Manual) Basophils # (Manual) PT INR APTT Heparin Anti-Xa Level POC ABG pH POC ABG pCO2 POC ABG pO2 Sodium Potassium Chloride Carbon Dioxide BUN Creatinine Glucose POC Glucose 296 H 210 H 190 H Calcium Phosphorus Magnesium AST Alkaline Phosphatase Troponin T C-Reactive Protein Total Protein Albumin Triglycerides HDL Cholesterol Lipase Vitamin B12 TSH Urine WBC (Auto) Urine Chloride Urine Total Protein Vancomycin Trough Crossmatch 10/13/16 10/13/16 10/13/16 16:14 16:14 17:17 WBC RBC Hgb Hct MCV RDW Plt Count Lymph % (Auto) [place] % (Auto) [place] # Seg Neutrophils % Seg Neuts % (Manual) Lymphocytes % (Manual) Monocytes % (Manual) Basophils % (Manual) Nucleated RBC % Seg Neutrophils # Seg Neutrophils # Man Lymphocytes # (Manual) Monocytes # (Manual) Eosinophils # (Manual) Basophils # (Manual) PT INR APTT Heparin Anti-Xa Level POC ABG pH POC ABG pCO2 POC ABG pO2 Sodium Potassium Chloride Carbon Dioxide 17 L BUN 58 H Creatinine 1.8 H Glucose 172 H POC Glucose 193 H Calcium 7.7 L Phosphorus Magnesium AST Alkaline Phosphatase Troponin T C-Reactive Protein 10.50 H Total Protein Albumin Triglycerides HDL Cholesterol Lipase Vitamin B12 TSH Urine WBC (Auto) Urine Chloride Urine Total Protein Vancomycin Trough Crossmatch 10/13/16 10/13/16 10/13/16 17:55 18:32 19:41 WBC RBC Hgb Hct MCV RDW Plt Count Lymph % (Auto) [place] % (Auto) [place] # Seg Neutrophils % Seg Neuts % (Manual) Lymphocytes % (Manual) Monocytes % (Manual) Basophils % (Manual) Nucleated RBC % Seg Neutrophils # Seg Neutrophils # Man Lymphocytes # (Manual) Monocytes # (Manual) Eosinophils # (Manual) Basophils # (Manual) PT INR APTT Heparin Anti-Xa Level POC ABG pH POC ABG pCO2 30.6 L POC ABG pO2 218 H Sodium Potassium Chloride Carbon Dioxide BUN Creatinine Glucose POC Glucose 192 H 177 H Calcium Phosphorus Magnesium AST Alkaline Phosphatase Troponin T C-Reactive Protein Total Protein Albumin Triglycerides HDL Cholesterol Lipase Vitamin B12 TSH Urine WBC (Auto) Urine Chloride Urine Total Protein Vancomycin Trough Crossmatch 10/13/16 10/13/16 10/13/16 20:54 22:07 23:13 WBC RBC Hgb Hct MCV RDW Plt Count Lymph % (Auto) [place] % (Auto) [place] # Seg Neutrophils % Seg Neuts % (Manual) Lymphocytes % (Manual) Monocytes % (Manual) Basophils % (Manual) Nucleated RBC % Seg Neutrophils # Seg Neutrophils # Man Lymphocytes # (Manual) Monocytes # (Manual) Eosinophils # (Manual) Basophils # (Manual) PT INR APTT Heparin Anti-Xa Level POC ABG pH POC ABG pCO2 POC ABG pO2 Sodium Potassium Chloride Carbon Dioxide BUN Creatinine Glucose POC Glucose 178 H 160 H 168 H Calcium Phosphorus Magnesium AST Alkaline Phosphatase Troponin T C-Reactive Protein Total Protein Albumin Triglycerides HDL Cholesterol Lipase Vitamin B12 TSH Urine WBC (Auto) Urine Chloride Urine Total Protein Vancomycin Trough Crossmatch 10/13/16 10/13/16 10/14/16 23:25 Unknown 00:21 WBC RBC Hgb Hct MCV RDW Plt Count Lymph % (Auto) [place] % (Auto) [place] # Seg Neutrophils % Seg Neuts % (Manual) Lymphocytes % (Manual) Monocytes % (Manual) Basophils % (Manual) Nucleated RBC % Seg Neutrophils # Seg Neutrophils # Man Lymphocytes # (Manual) Monocytes # (Manual) Eosinophils # (Manual) Basophils # (Manual) PT INR APTT Heparin Anti-Xa Level POC ABG pH POC ABG pCO2 POC ABG pO2 Sodium 148 H Potassium Chloride 114.6 H Carbon Dioxide 17 L BUN 56 H Creatinine 1.6 H Glucose 151 H POC Glucose 171 H Calcium 7.8 L Phosphorus Magnesium AST Alkaline Phosphatase Troponin T C-Reactive Protein Total Protein Albumin Triglycerides HDL Cholesterol Lipase Vitamin B12 TSH Urine WBC (Auto) Urine Chloride 10.0 L Urine Total Protein < 4 L Vancomycin Trough Crossmatch 10/14/16 10/14/16 10/14/16 01:22 02:29 03:30 WBC RBC Hgb Hct MCV RDW Plt Count Lymph % (Auto) [place] % (Auto) [place] # Seg Neutrophils % Seg Neuts % (Manual) Lymphocytes % (Manual) Monocytes % (Manual) Basophils % (Manual) Nucleated RBC % Seg Neutrophils # Seg Neutrophils # Man Lymphocytes # (Manual) Monocytes # (Manual) Eosinophils # (Manual) Basophils # (Manual) PT INR APTT Heparin Anti-Xa Level POC ABG pH POC ABG pCO2 POC ABG pO2 Sodium Potassium Chloride Carbon Dioxide BUN Creatinine Glucose POC Glucose 144 H 136 H 143 H Calcium Phosphorus Magnesium AST Alkaline Phosphatase Troponin T C-Reactive Protein Total Protein Albumin Triglycerides HDL Cholesterol Lipase Vitamin B12 TSH Urine WBC (Auto) Urine Chloride Urine Total Protein Vancomycin Trough Crossmatch 10/14/16 10/14/16 10/14/16 04:28 05:16 05:44 WBC RBC Hgb Hct MCV RDW Plt Count Lymph % (Auto) [place] % (Auto) [place] # Seg Neutrophils % Seg Neuts % (Manual) Lymphocytes % (Manual) Monocytes % (Manual) Basophils % (Manual) Nucleated RBC % Seg Neutrophils # Seg Neutrophils # Man Lymphocytes # (Manual) Monocytes # (Manual) Eosinophils # (Manual) Basophils # (Manual) PT INR APTT Heparin Anti-Xa Level POC ABG pH POC ABG pCO2 28.2 L POC ABG pO2 125 H Sodium Potassium Chloride Carbon Dioxide BUN Creatinine Glucose POC Glucose 133 H 160 H Calcium Phosphorus Magnesium AST Alkaline Phosphatase Troponin T C-Reactive Protein Total Protein Albumin Triglycerides HDL Cholesterol Lipase Vitamin B12 TSH Urine WBC (Auto) Urine Chloride Urine Total Protein Vancomycin Trough Crossmatch 10/14/16 10/14/16 10/14/16 06:12 06:45 07:03 WBC RBC Hgb Hct MCV RDW Plt Count Lymph % (Auto) [place] % (Auto) [place] # Seg Neutrophils % Seg Neuts % (Manual) Lymphocytes % (Manual) Monocytes % (Manual) Basophils % (Manual) Nucleated RBC % Seg Neutrophils # Seg Neutrophils # Man Lymphocytes # (Manual) Monocytes # (Manual) Eosinophils # (Manual) Basophils # (Manual) PT INR APTT Heparin Anti-Xa Level POC ABG pH POC ABG pCO2 POC ABG pO2 Sodium 149 H Potassium Chloride 115.4 H Carbon Dioxide 17 L BUN 45 H Creatinine 1.5 H Glucose 139 H POC Glucose 149 H Calcium 7.4 L Phosphorus 1.0 L D Magnesium AST Alkaline Phosphatase Troponin T C-Reactive Protein Total Protein Albumin Triglycerides HDL Cholesterol Lipase Vitamin B12 TSH Urine WBC (Auto) Urine Chloride Urine Total Protein Vancomycin Trough Crossmatch 10/14/16 10/14/16 10/14/16 07:03 08:02 09:16 WBC RBC Hgb Hct MCV RDW Plt Count Lymph % (Auto) [place] % (Auto) [place] # Seg Neutrophils % Seg Neuts % (Manual) Lymphocytes % (Manual) Monocytes % (Manual) Basophils % (Manual) Nucleated RBC % Seg Neutrophils # Seg Neutrophils # Man Lymphocytes # (Manual) Monocytes # (Manual) Eosinophils # (Manual) Basophils # (Manual) PT INR APTT Heparin Anti-Xa Level POC ABG pH POC ABG pCO2 POC ABG pO2 Sodium Potassium Chloride Carbon Dioxide BUN Creatinine Glucose POC Glucose 156 H 158 H Calcium Phosphorus Magnesium AST Alkaline Phosphatase Troponin T C-Reactive Protein Total Protein Albumin Triglycerides HDL Cholesterol Lipase 738 H Vitamin B12 TSH Urine WBC (Auto) Urine Chloride Urine Total Protein Vancomycin Trough Crossmatch 10/14/16 10/14/16 10/14/16 10:26 11:03 11:57 WBC RBC Hgb Hct MCV RDW Plt Count Lymph % (Auto) [place] % (Auto) [place] # Seg Neutrophils % Seg Neuts % (Manual) Lymphocytes % (Manual) Monocytes % (Manual) Basophils % (Manual) Nucleated RBC % Seg Neutrophils # Seg Neutrophils # Man Lymphocytes # (Manual) Monocytes # (Manual) Eosinophils # (Manual) Basophils # (Manual) PT INR APTT Heparin Anti-Xa Level POC ABG pH 7.198 L POC ABG pCO2 47.5 H POC ABG pO2 Sodium Potassium Chloride Carbon Dioxide BUN Creatinine Glucose POC Glucose 174 H 189 H Calcium Phosphorus Magnesium AST Alkaline Phosphatase Troponin T C-Reactive Protein Total Protein Albumin Triglycerides HDL Cholesterol Lipase Vitamin B12 TSH Urine WBC (Auto) Urine Chloride Urine Total Protein Vancomycin Trough Crossmatch 10/14/16 10/14/16 10/14/16 12:02 12:02 13:11 WBC 13.4 H RBC 3.60 L Hgb Hct MCV 98 H D RDW 13.1 L Plt Count Lymph % (Auto) [place] % (Auto) [place] # Seg Neutrophils % Seg Neuts % (Manual) Lymphocytes % (Manual) Monocytes % (Manual) Basophils % (Manual) Nucleated RBC % Seg Neutrophils # Seg Neutrophils # Man Lymphocytes # (Manual) Monocytes # (Manual) Eosinophils # (Manual) Basophils # (Manual) PT INR APTT Heparin Anti-Xa Level POC ABG pH POC ABG pCO2 POC ABG pO2 Sodium Potassium Chloride 110.7 H Carbon Dioxide 19 L BUN 38 H Creatinine 1.4 H Glucose 182 H POC Glucose 173 H Calcium 7.5 L Phosphorus Magnesium AST Alkaline Phosphatase Troponin T C-Reactive Protein Total Protein Albumin Triglycerides HDL Cholesterol Lipase Vitamin B12 TSH Urine WBC (Auto) Urine Chloride Urine Total Protein Vancomycin Trough Crossmatch 10/14/16 10/14/16 10/14/16 14:24 15:31 16:36 WBC RBC Hgb Hct MCV RDW Plt Count Lymph % (Auto) [place] % (Auto) [place] # Seg Neutrophils % Seg Neuts % (Manual) Lymphocytes % (Manual) Monocytes % (Manual) Basophils % (Manual) Nucleated RBC % Seg Neutrophils # Seg Neutrophils # Man Lymphocytes # (Manual) Monocytes # (Manual) Eosinophils # (Manual) Basophils # (Manual) PT INR APTT Heparin Anti-Xa Level POC ABG pH POC ABG pCO2 POC ABG pO2 Sodium Potassium Chloride Carbon Dioxide BUN Creatinine Glucose POC Glucose 123 H 124 H 156 H Calcium Phosphorus Magnesium AST Alkaline Phosphatase Troponin T C-Reactive Protein Total Protein Albumin Triglycerides HDL Cholesterol Lipase Vitamin B12 TSH Urine WBC (Auto) Urine Chloride Urine Total Protein Vancomycin Trough Crossmatch 10/14/16 10/14/16 10/14/16 17:43 19:00 20:08 WBC RBC Hgb Hct MCV RDW Plt Count Lymph % (Auto) [place] % (Auto) [place] # Seg Neutrophils % Seg Neuts % (Manual) Lymphocytes % (Manual) Monocytes % (Manual) Basophils % (Manual) Nucleated RBC % Seg Neutrophils # Seg Neutrophils # Man Lymphocytes # (Manual) Monocytes # (Manual) Eosinophils # (Manual) Basophils # (Manual) PT INR APTT Heparin Anti-Xa Level POC ABG pH POC ABG pCO2 POC ABG pO2 Sodium Potassium Chloride Carbon Dioxide BUN Creatinine Glucose POC Glucose 154 H 123 H 138 H Calcium Phosphorus Magnesium AST Alkaline Phosphatase Troponin T C-Reactive Protein Total Protein Albumin Triglycerides HDL Cholesterol Lipase Vitamin B12 TSH Urine WBC (Auto) Urine Chloride Urine Total Protein Vancomycin Trough Crossmatch 10/14/16 10/14/16 10/14/16 21:17 22:25 23:37 WBC RBC Hgb Hct MCV RDW Plt Count Lymph % (Auto) [place] % (Auto) [place] # Seg Neutrophils % Seg Neuts % (Manual) Lymphocytes % (Manual) Monocytes % (Manual) Basophils % (Manual) Nucleated RBC % Seg Neutrophils # Seg Neutrophils # Man Lymphocytes # (Manual) Monocytes # (Manual) Eosinophils # (Manual) Basophils # (Manual) PT INR APTT Heparin Anti-Xa Level POC ABG pH POC ABG pCO2 POC ABG pO2 Sodium Potassium Chloride Carbon Dioxide BUN Creatinine Glucose POC Glucose 148 H 132 H 137 H Calcium Phosphorus Magnesium AST Alkaline Phosphatase Troponin T C-Reactive Protein Total Protein Albumin Triglycerides HDL Cholesterol Lipase Vitamin B12 TSH Urine WBC (Auto) Urine Chloride Urine Total Protein Vancomycin Trough Crossmatch 10/15/16 10/15/16 10/15/16 00:49 01:53 03:06 WBC RBC Hgb Hct MCV RDW Plt Count Lymph % (Auto) [place] % (Auto) [place] # Seg Neutrophils % Seg Neuts % (Manual) Lymphocytes % (Manual) Monocytes % (Manual) Basophils % (Manual) Nucleated RBC % Seg Neutrophils # Seg Neutrophils # Man Lymphocytes # (Manual) Monocytes # (Manual) Eosinophils # (Manual) Basophils # (Manual) PT INR APTT Heparin Anti-Xa Level POC ABG pH POC ABG pCO2 POC ABG pO2 Sodium Potassium Chloride Carbon Dioxide BUN Creatinine Glucose POC Glucose 132 H 134 H 134 H Calcium Phosphorus Magnesium AST Alkaline Phosphatase Troponin T C-Reactive Protein Total Protein Albumin Triglycerides HDL Cholesterol Lipase Vitamin B12 TSH Urine WBC (Auto) Urine Chloride Urine Total Protein Vancomycin Trough Crossmatch 10/15/16 10/15/16 10/15/16 04:40 04:46 06:21 WBC RBC Hgb Hct MCV RDW Plt Count Lymph % (Auto) [place] % (Auto) [place] # Seg Neutrophils % Seg Neuts % (Manual) Lymphocytes % (Manual) Monocytes % (Manual) Basophils % (Manual) Nucleated RBC % Seg Neutrophils # Seg Neutrophils # Man Lymphocytes # (Manual) Monocytes # (Manual) Eosinophils # (Manual) Basophils # (Manual) PT INR APTT Heparin Anti-Xa Level POC ABG pH POC ABG pCO2 30.7 L POC ABG pO2 108 H Sodium Potassium Chloride 109.0 H Carbon Dioxide 17 L BUN 27 H Creatinine Glucose 124 H POC Glucose 160 H Calcium 7.5 L Phosphorus Magnesium AST 79 H Alkaline Phosphatase Troponin T C-Reactive Protein Total Protein 5.5 L Albumin 3.0 L Triglycerides HDL Cholesterol Lipase Vitamin B12 TSH Urine WBC (Auto) Urine Chloride Urine Total Protein Vancomycin Trough Crossmatch 10/15/16 10/15/16 10/15/16 07:12 08:01 09:03 WBC RBC Hgb Hct MCV RDW Plt Count Lymph % (Auto) [place] % (Auto) [place] # Seg Neutrophils % Seg Neuts % (Manual) Lymphocytes % (Manual) Monocytes % (Manual) Basophils % (Manual) Nucleated RBC % Seg Neutrophils # Seg Neutrophils # Man Lymphocytes # (Manual) Monocytes # (Manual) Eosinophils # (Manual) Basophils # (Manual) PT INR APTT Heparin Anti-Xa Level POC ABG pH POC ABG pCO2 POC ABG pO2 Sodium Potassium Chloride Carbon Dioxide BUN Creatinine Glucose POC Glucose 179 H 187 H 165 H Calcium Phosphorus Magnesium AST Alkaline Phosphatase Troponin T C-Reactive Protein Total Protein Albumin Triglycerides HDL Cholesterol Lipase Vitamin B12 TSH Urine WBC (Auto) Urine Chloride Urine Total Protein Vancomycin Trough Crossmatch 10/15/16 10/15/16 10/15/16 10:06 10:06 10:07 WBC 12.1 H RBC 3.01 L Hgb 9.7 L Hct 29.6 L MCV 98 H RDW Plt Count 129 L Lymph % (Auto) [place] % (Auto) [place] # Seg Neutrophils % Seg Neuts % (Manual) Lymphocytes % (Manual) Monocytes % (Manual) Basophils % (Manual) Nucleated RBC % Seg Neutrophils # Seg Neutrophils # Man Lymphocytes # (Manual) Monocytes # (Manual) Eosinophils # (Manual) Basophils # (Manual) PT INR APTT Heparin Anti-Xa Level POC ABG pH POC ABG pCO2 POC ABG pO2 Sodium Potassium 3.2 L D Chloride 109.6 H Carbon Dioxide 18 L BUN 22 H Creatinine Glucose 127 H POC Glucose 147 H Calcium 7.0 L Phosphorus Magnesium AST Alkaline Phosphatase Troponin T C-Reactive Protein Total Protein Albumin Triglycerides HDL Cholesterol Lipase Vitamin B12 TSH Urine WBC (Auto) Urine Chloride Urine Total Protein Vancomycin Trough Crossmatch 10/15/16 10/15/16 10/15/16 11:05 11:06 11:57 WBC RBC Hgb Hct MCV RDW Plt Count Lymph % (Auto) [place] % (Auto) [place] # Seg Neutrophils % Seg Neuts % (Manual) Lymphocytes % (Manual) Monocytes % (Manual) Basophils % (Manual) Nucleated RBC % Seg Neutrophils # Seg Neutrophils # Man Lymphocytes # (Manual) Monocytes # (Manual) Eosinophils # (Manual) Basophils # (Manual) PT INR APTT Heparin Anti-Xa Level POC ABG pH 7.305 L POC ABG pCO2 POC ABG pO2 Sodium Potassium Chloride Carbon Dioxide BUN Creatinine Glucose POC Glucose 145 H Calcium Phosphorus Magnesium AST Alkaline Phosphatase Troponin T C-Reactive Protein Total Protein Albumin Triglycerides HDL Cholesterol Lipase Vitamin B12 TSH Urine WBC (Auto) 7.0 H Urine Chloride Urine Total Protein Vancomycin Trough Crossmatch 10/15/16 10/15/16 10/15/16 12:04 13:59 15:24 WBC RBC Hgb Hct MCV RDW Plt Count Lymph % (Auto) [place] % (Auto) [place] # Seg Neutrophils % Seg Neuts % (Manual) Lymphocytes % (Manual) Monocytes % (Manual) Basophils % (Manual) Nucleated RBC % Seg Neutrophils # Seg Neutrophils # Man Lymphocytes # (Manual) Monocytes # (Manual) Eosinophils # (Manual) Basophils # (Manual) PT INR APTT Heparin Anti-Xa Level POC ABG pH POC ABG pCO2 POC ABG pO2 Sodium Potassium Chloride Carbon Dioxide BUN Creatinine Glucose POC Glucose 123 H 147 H 153 H Calcium Phosphorus Magnesium AST Alkaline Phosphatase Troponin T C-Reactive Protein Total Protein Albumin Triglycerides HDL Cholesterol Lipase Vitamin B12 TSH Urine WBC (Auto) Urine Chloride Urine Total Protein Vancomycin Trough Crossmatch 10/15/16 10/15/16 10/15/16 16:30 17:34 18:30 WBC RBC Hgb Hct MCV RDW Plt Count Lymph % (Auto) [place] % (Auto) [place] # Seg Neutrophils % Seg Neuts % (Manual) Lymphocytes % (Manual) Monocytes % (Manual) Basophils % (Manual) Nucleated RBC % Seg Neutrophils # Seg Neutrophils # Man Lymphocytes # (Manual) Monocytes # (Manual) Eosinophils # (Manual) Basophils # (Manual) PT INR APTT Heparin Anti-Xa Level POC ABG pH POC ABG pCO2 POC ABG pO2 Sodium Potassium Chloride Carbon Dioxide BUN Creatinine Glucose POC Glucose 223 H 236 H 164 H Calcium Phosphorus Magnesium AST Alkaline Phosphatase Troponin T C-Reactive Protein Total Protein Albumin Triglycerides HDL Cholesterol Lipase Vitamin B12 TSH Urine WBC (Auto) Urine Chloride Urine Total Protein Vancomycin Trough Crossmatch 10/15/16 10/15/16 10/15/16 19:14 20:31 21:23 WBC RBC Hgb Hct MCV RDW Plt Count Lymph % (Auto) [place] % (Auto) [place] # Seg Neutrophils % Seg Neuts % (Manual) Lymphocytes % (Manual) Monocytes % (Manual) Basophils % (Manual) Nucleated RBC % Seg Neutrophils # Seg Neutrophils # Man Lymphocytes # (Manual) Monocytes # (Manual) Eosinophils # (Manual) Basophils # (Manual) PT INR APTT Heparin Anti-Xa Level POC ABG pH POC ABG pCO2 POC ABG pO2 Sodium Potassium Chloride Carbon Dioxide BUN Creatinine Glucose POC Glucose 138 H 158 H 158 H Calcium Phosphorus Magnesium AST Alkaline Phosphatase Troponin T C-Reactive Protein Total Protein Albumin Triglycerides HDL Cholesterol Lipase Vitamin B12 TSH Urine WBC (Auto) Urine Chloride Urine Total Protein Vancomycin Trough Crossmatch 10/15/16 10/15/16 10/16/16 22:04 22:57 00:11 WBC RBC Hgb Hct MCV RDW Plt Count Lymph % (Auto) [place] % (Auto) [place] # Seg Neutrophils % Seg Neuts % (Manual) Lymphocytes % (Manual) Monocytes % (Manual) Basophils % (Manual) Nucleated RBC % Seg Neutrophils # Seg Neutrophils # Man Lymphocytes # (Manual) Monocytes # (Manual) Eosinophils # (Manual) Basophils # (Manual) PT INR APTT Heparin Anti-Xa Level POC ABG pH POC ABG pCO2 POC ABG pO2 Sodium Potassium Chloride Carbon Dioxide BUN Creatinine Glucose POC Glucose 168 H 213 H 166 H Calcium Phosphorus Magnesium AST Alkaline Phosphatase Troponin T C-Reactive Protein Total Protein Albumin Triglycerides HDL Cholesterol Lipase Vitamin B12 TSH Urine WBC (Auto) Urine Chloride Urine Total Protein Vancomycin Trough Crossmatch 10/16/16 10/16/16 10/16/16 01:16 02:32 03:38 WBC RBC Hgb Hct MCV RDW Plt Count Lymph % (Auto) [place] % (Auto) [place] # Seg Neutrophils % Seg Neuts % (Manual) Lymphocytes % (Manual) Monocytes % (Manual) Basophils % (Manual) Nucleated RBC % Seg Neutrophils # Seg Neutrophils # Man Lymphocytes # (Manual) Monocytes # (Manual) Eosinophils # (Manual) Basophils # (Manual) PT INR APTT Heparin Anti-Xa Level POC ABG pH POC ABG pCO2 POC ABG pO2 Sodium Potassium Chloride Carbon Dioxide BUN Creatinine Glucose POC Glucose 171 H 164 H 147 H Calcium Phosphorus Magnesium AST Alkaline Phosphatase Troponin T C-Reactive Protein Total Protein Albumin Triglycerides HDL Cholesterol Lipase Vitamin B12 TSH Urine WBC (Auto) Urine Chloride Urine Total Protein Vancomycin Trough Crossmatch 10/16/16 10/16/16 10/16/16 04:14 04:14 04:49 WBC RBC Hgb Hct MCV RDW Plt Count Lymph % (Auto) [place] % (Auto) [place] # Seg Neutrophils % Seg Neuts % (Manual) Lymphocytes % (Manual) Monocytes % (Manual) Basophils % (Manual) Nucleated RBC % Seg Neutrophils # Seg Neutrophils # Man Lymphocytes # (Manual) Monocytes # (Manual) Eosinophils # (Manual) Basophils # (Manual) PT INR APTT Heparin Anti-Xa Level POC ABG pH POC ABG pCO2 POC ABG pO2 Sodium 147 H Potassium Chloride 110.9 H Carbon Dioxide 19 L BUN Creatinine Glucose 139 H POC Glucose 144 H Calcium 7.3 L Phosphorus 2.3 L Magnesium AST Alkaline Phosphatase Troponin T C-Reactive Protein Total Protein Albumin Triglycerides HDL Cholesterol Lipase 143 H Vitamin B12 TSH Urine WBC (Auto) Urine Chloride Urine Total Protein Vancomycin Trough Crossmatch 10/16/16 10/16/16 10/16/16 05:03 05:41 05:58 WBC 16.5 H RBC 3.36 L Hgb Hct MCV 98 H RDW 13.1 L Plt Count Lymph % (Auto) 8.5 L [place] % (Auto) 7.6 H [place] # 1.3 H Seg Neutrophils % 83.3 H Seg Neuts % (Manual) Lymphocytes % (Manual) Monocytes % (Manual) Basophils % (Manual) Nucleated RBC % Seg Neutrophils # 13.8 H Seg Neutrophils # Man Lymphocytes # (Manual) Monocytes # (Manual) Eosinophils # (Manual) Basophils # (Manual) PT INR APTT Heparin Anti-Xa Level POC ABG pH POC ABG pCO2 30.7 L POC ABG pO2 128 H Sodium Potassium Chloride Carbon Dioxide BUN Creatinine Glucose POC Glucose 131 H Calcium Phosphorus Magnesium AST Alkaline Phosphatase Troponin T C-Reactive Protein Total Protein Albumin Triglycerides HDL Cholesterol Lipase Vitamin B12 TSH Urine WBC (Auto) Urine Chloride Urine Total Protein Vancomycin Trough Crossmatch 10/16/16 10/16/16 10/16/16 06:32 09:27 09:35 WBC RBC Hgb Hct MCV RDW Plt Count Lymph % (Auto) [place] % (Auto) [place] # Seg Neutrophils % Seg Neuts % (Manual) Lymphocytes % (Manual) Monocytes % (Manual) Basophils % (Manual) Nucleated RBC % Seg Neutrophils # Seg Neutrophils # Man Lymphocytes # (Manual) Monocytes # (Manual) Eosinophils # (Manual) Basophils # (Manual) PT INR APTT Heparin Anti-Xa Level POC ABG pH POC ABG pCO2 32.8 L POC ABG pO2 137 H Sodium Potassium Chloride Carbon Dioxide BUN Creatinine Glucose POC Glucose 121 H 150 H Calcium Phosphorus Magnesium AST Alkaline Phosphatase Troponin T C-Reactive Protein Total Protein Albumin Triglycerides HDL Cholesterol Lipase Vitamin B12 TSH Urine WBC (Auto) Urine Chloride Urine Total Protein Vancomycin Trough Crossmatch 10/16/16 10/16/16 10/16/16 10:47 13:27 14:24 WBC RBC Hgb Hct MCV RDW Plt Count Lymph % (Auto) [place] % (Auto) [place] # Seg Neutrophils % Seg Neuts % (Manual) Lymphocytes % (Manual) Monocytes % (Manual) Basophils % (Manual) Nucleated RBC % Seg Neutrophils # Seg Neutrophils # Man Lymphocytes # (Manual) Monocytes # (Manual) Eosinophils # (Manual) Basophils # (Manual) PT INR APTT Heparin Anti-Xa Level POC ABG pH POC ABG pCO2 POC ABG pO2 Sodium Potassium Chloride Carbon Dioxide BUN Creatinine Glucose POC Glucose 184 H 171 H 174 H Calcium Phosphorus Magnesium AST Alkaline Phosphatase Troponin T C-Reactive Protein Total Protein Albumin Triglycerides HDL Cholesterol Lipase Vitamin B12 TSH Urine WBC (Auto) Urine Chloride Urine Total Protein Vancomycin Trough Crossmatch 10/16/16 10/16/16 10/16/16 15:48 16:26 18:17 WBC RBC Hgb Hct MCV RDW Plt Count Lymph % (Auto) [place] % (Auto) [place] # Seg Neutrophils % Seg Neuts % (Manual) Lymphocytes % (Manual) Monocytes % (Manual) Basophils % (Manual) Nucleated RBC % Seg Neutrophils # Seg Neutrophils # Man Lymphocytes # (Manual) Monocytes # (Manual) Eosinophils # (Manual) Basophils # (Manual) PT INR APTT Heparin Anti-Xa Level POC ABG pH POC ABG pCO2 POC ABG pO2 Sodium Potassium Chloride Carbon Dioxide BUN Creatinine Glucose POC Glucose 205 H 204 H 234 H Calcium Phosphorus Magnesium AST Alkaline Phosphatase Troponin T C-Reactive Protein Total Protein Albumin Triglycerides HDL Cholesterol Lipase Vitamin B12 TSH Urine WBC (Auto) Urine Chloride Urine Total Protein Vancomycin Trough Crossmatch 10/16/16 10/16/16 10/16/16 19:40 20:33 21:36 WBC RBC Hgb Hct MCV RDW Plt Count Lymph % (Auto) [place] % (Auto) [place] # Seg Neutrophils % Seg Neuts % (Manual) Lymphocytes % (Manual) Monocytes % (Manual) Basophils % (Manual) Nucleated RBC % Seg Neutrophils # Seg Neutrophils # Man Lymphocytes # (Manual) Monocytes # (Manual) Eosinophils # (Manual) Basophils # (Manual) PT INR APTT Heparin Anti-Xa Level POC ABG pH POC ABG pCO2 POC ABG pO2 Sodium Potassium Chloride Carbon Dioxide BUN Creatinine Glucose POC Glucose 167 H 153 H 158 H Calcium Phosphorus Magnesium AST Alkaline Phosphatase Troponin T C-Reactive Protein Total Protein Albumin Triglycerides HDL Cholesterol Lipase Vitamin B12 TSH Urine WBC (Auto) Urine Chloride Urine Total Protein Vancomycin Trough Crossmatch 10/16/16 10/16/16 10/17/16 22:54 23:48 00:47 WBC RBC Hgb Hct MCV RDW Plt Count Lymph % (Auto) [place] % (Auto) [place] # Seg Neutrophils % Seg Neuts % (Manual) Lymphocytes % (Manual) Monocytes % (Manual) Basophils % (Manual) Nucleated RBC % Seg Neutrophils # Seg Neutrophils # Man Lymphocytes # (Manual) Monocytes # (Manual) Eosinophils # (Manual) Basophils # (Manual) PT INR APTT Heparin Anti-Xa Level POC ABG pH POC ABG pCO2 POC ABG pO2 Sodium Potassium Chloride Carbon Dioxide BUN Creatinine Glucose POC Glucose 180 H 207 H 196 H Calcium Phosphorus Magnesium AST Alkaline Phosphatase Troponin T C-Reactive Protein Total Protein Albumin Triglycerides HDL Cholesterol Lipase Vitamin B12 TSH Urine WBC (Auto) Urine Chloride Urine Total Protein Vancomycin Trough Crossmatch 10/17/16 10/17/16 10/17/16 01:57 02:49 03:50 WBC RBC Hgb Hct MCV RDW Plt Count Lymph % (Auto) [place] % (Auto) [place] # Seg Neutrophils % Seg Neuts % (Manual) Lymphocytes % (Manual) Monocytes % (Manual) Basophils % (Manual) Nucleated RBC % Seg Neutrophils # Seg Neutrophils # Man Lymphocytes # (Manual) Monocytes # (Manual) Eosinophils # (Manual) Basophils # (Manual) PT INR APTT Heparin Anti-Xa Level POC ABG pH POC ABG pCO2 POC ABG pO2 Sodium Potassium Chloride Carbon Dioxide BUN Creatinine Glucose POC Glucose 180 H 151 H 106 H Calcium Phosphorus Magnesium AST Alkaline Phosphatase Troponin T C-Reactive Protein Total Protein Albumin Triglycerides HDL Cholesterol Lipase Vitamin B12 TSH Urine WBC (Auto) Urine Chloride Urine Total Protein Vancomycin Trough Crossmatch 10/17/16 10/17/16 10/17/16 04:59 06:03 06:35 WBC RBC Hgb Hct MCV RDW Plt Count Lymph % (Auto) [place] % (Auto) [place] # Seg Neutrophils % Seg Neuts % (Manual) Lymphocytes % (Manual) Monocytes % (Manual) Basophils % (Manual) Nucleated RBC % Seg Neutrophils # Seg Neutrophils # Man Lymphocytes # (Manual) Monocytes # (Manual) Eosinophils # (Manual) Basophils # (Manual) PT INR APTT Heparin Anti-Xa Level POC ABG pH 7.453 H POC ABG pCO2 30.1 L POC ABG pO2 111 H Sodium Potassium Chloride Carbon Dioxide BUN Creatinine Glucose POC Glucose 145 H 157 H Calcium Phosphorus Magnesium AST Alkaline Phosphatase Troponin T C-Reactive Protein Total Protein Albumin Triglycerides HDL Cholesterol Lipase Vitamin B12 TSH Urine WBC (Auto) Urine Chloride Urine Total Protein Vancomycin Trough Crossmatch 10/17/16 10/17/16 10/17/16 07:08 07:11 08:01 WBC RBC Hgb Hct MCV RDW Plt Count Lymph % (Auto) [place] % (Auto) [place] # Seg Neutrophils % Seg Neuts % (Manual) Lymphocytes % (Manual) Monocytes % (Manual) Basophils % (Manual) Nucleated RBC % Seg Neutrophils # Seg Neutrophils # Man Lymphocytes # (Manual) Monocytes # (Manual) Eosinophils # (Manual) Basophils # (Manual) PT INR APTT Heparin Anti-Xa Level POC ABG pH POC ABG pCO2 POC ABG pO2 Sodium 147 H Potassium Chloride 113.8 H Carbon Dioxide 19 L BUN Creatinine Glucose 136 H POC Glucose 136 H 152 H Calcium 7.7 L Phosphorus Magnesium AST Alkaline Phosphatase Troponin T C-Reactive Protein Total Protein Albumin Triglycerides HDL Cholesterol Lipase Vitamin B12 TSH Urine WBC (Auto) Urine Chloride Urine Total Protein Vancomycin Trough Crossmatch 10/17/16 10/17/16 10/17/16 08:23 09:17 09:53 WBC 18.1 H RBC 3.01 L Hgb 9.7 L Hct 29.4 L MCV 98 H RDW Plt Count 116 L Lymph % (Auto) [place] % (Auto) [place] # Seg Neutrophils % Seg Neuts % (Manual) 77.0 H Lymphocytes % (Manual) 4.0 L Monocytes % (Manual) 12.0 H Basophils % (Manual) Nucleated RBC % Seg Neutrophils # Seg Neutrophils # Man 13.9 H Lymphocytes # (Manual) 0.7 L Monocytes # (Manual) 2.2 H Eosinophils # (Manual) Basophils # (Manual) PT INR APTT Heparin Anti-Xa Level POC ABG pH POC ABG pCO2 POC ABG pO2 Sodium Potassium Chloride Carbon Dioxide BUN Creatinine Glucose POC Glucose 148 H 137 H Calcium Phosphorus Magnesium AST Alkaline Phosphatase Troponin T C-Reactive Protein Total Protein Albumin Triglycerides HDL Cholesterol Lipase Vitamin B12 TSH Urine WBC (Auto) Urine Chloride Urine Total Protein Vancomycin Trough Crossmatch 10/17/16 10/17/16 10/17/16 11:43 16:07 17:42 WBC RBC Hgb Hct MCV RDW Plt Count Lymph % (Auto) [place] % (Auto) [place] # Seg Neutrophils % Seg Neuts % (Manual) Lymphocytes % (Manual) Monocytes % (Manual) Basophils % (Manual) Nucleated RBC % Seg Neutrophils # Seg Neutrophils # Man Lymphocytes # (Manual) Monocytes # (Manual) Eosinophils # (Manual) Basophils # (Manual) PT 16.4 H INR 1.33 H APTT 38.8 H Heparin Anti-Xa Level POC ABG pH POC ABG pCO2 POC ABG pO2 Sodium Potassium Chloride Carbon Dioxide BUN Creatinine Glucose POC Glucose 179 H 153 H Calcium Phosphorus Magnesium AST Alkaline Phosphatase Troponin T C-Reactive Protein Total Protein Albumin Triglycerides HDL Cholesterol Lipase Vitamin B12 TSH Urine WBC (Auto) Urine Chloride Urine Total Protein Vancomycin Trough Crossmatch 10/17/16 10/18/16 10/18/16 22:54 04:37 05:39 WBC RBC Hgb Hct MCV RDW Plt Count Lymph % (Auto) [place] % (Auto) [place] # Seg Neutrophils % Seg Neuts % (Manual) Lymphocytes % (Manual) Monocytes % (Manual) Basophils % (Manual) Nucleated RBC % Seg Neutrophils # Seg Neutrophils # Man Lymphocytes # (Manual) Monocytes # (Manual) Eosinophils # (Manual) Basophils # (Manual) PT INR APTT Heparin Anti-Xa Level 0.27 L POC ABG pH 7.454 H POC ABG pCO2 30.8 L POC ABG pO2 115 H Sodium Potassium Chloride Carbon Dioxide BUN Creatinine Glucose POC Glucose 69 L Calcium Phosphorus Magnesium AST Alkaline Phosphatase Troponin T C-Reactive Protein Total Protein Albumin Triglycerides HDL Cholesterol Lipase Vitamin B12 TSH Urine WBC (Auto) Urine Chloride Urine Total Protein Vancomycin Trough Crossmatch 10/18/16 10/18/16 10/18/16 06:46 06:46 06:46 WBC 20.5 H RBC 2.62 L Hgb 8.4 L Hct 26.0 L MCV 100 H RDW Plt Count Lymph % (Auto) [place] % (Auto) [place] # Seg Neutrophils % Seg Neuts % (Manual) 75.0 H Lymphocytes % (Manual) 9.0 L Monocytes % (Manual) 14.0 H Basophils % (Manual) Nucleated RBC % Seg Neutrophils # Seg Neutrophils # Man 15.4 H Lymphocytes # (Manual) Monocytes # (Manual) 2.9 H Eosinophils # (Manual) Basophils # (Manual) PT INR APTT Heparin Anti-Xa Level POC ABG pH POC ABG pCO2 POC ABG pO2 Sodium Potassium Chloride 110.6 H Carbon Dioxide BUN Creatinine 1.3 H Glucose 153 H POC Glucose Calcium 8.0 L Phosphorus Magnesium 1.6 L AST Alkaline Phosphatase Troponin T C-Reactive Protein Total Protein Albumin Triglycerides HDL Cholesterol Lipase Vitamin B12 TSH Urine WBC (Auto) Urine Chloride Urine Total Protein Vancomycin Trough Crossmatch 10/18/16 10/18/16 10/18/16 07:30 11:37 17:51 WBC RBC Hgb Hct MCV RDW Plt Count Lymph % (Auto) [place] % (Auto) [place] # Seg Neutrophils % Seg Neuts % (Manual) Lymphocytes % (Manual) Monocytes % (Manual) Basophils % (Manual) Nucleated RBC % Seg Neutrophils # Seg Neutrophils # Man Lymphocytes # (Manual) Monocytes # (Manual) Eosinophils # (Manual) Basophils # (Manual) PT INR APTT Heparin Anti-Xa Level POC ABG pH POC ABG pCO2 POC ABG pO2 Sodium Potassium Chloride Carbon Dioxide BUN Creatinine Glucose POC Glucose 162 H 156 H 164 H Calcium Phosphorus Magnesium AST Alkaline Phosphatase Troponin T C-Reactive Protein Total Protein Albumin Triglycerides HDL Cholesterol Lipase Vitamin B12 TSH Urine WBC (Auto) Urine Chloride Urine Total Protein Vancomycin Trough Crossmatch 10/18/16 10/19/16 10/19/16 23:44 03:59 05:13 WBC 18.2 H RBC 2.76 L Hgb 9.0 L Hct 27.7 L MCV 100 H RDW Plt Count Lymph % (Auto) [place] % (Auto) [place] # Seg Neutrophils % Seg Neuts % (Manual) 76.0 H Lymphocytes % (Manual) 10.0 L Monocytes % (Manual) Basophils % (Manual) Nucleated RBC % Seg Neutrophils # Seg Neutrophils # Man 13.8 H Lymphocytes # (Manual) Monocytes # (Manual) Eosinophils # (Manual) Basophils # (Manual) PT INR APTT Heparin Anti-Xa Level POC ABG pH POC ABG pCO2 32.2 L POC ABG pO2 128 H Sodium Potassium Chloride Carbon Dioxide BUN Creatinine Glucose POC Glucose 278 H Calcium Phosphorus Magnesium AST Alkaline Phosphatase Troponin T C-Reactive Protein Total Protein Albumin Triglycerides HDL Cholesterol Lipase Vitamin B12 TSH Urine WBC (Auto) Urine Chloride Urine Total Protein Vancomycin Trough Crossmatch 10/19/16 10/19/16 10/19/16 06:01 06:30 12:20 WBC RBC Hgb Hct MCV RDW Plt Count Lymph % (Auto) [place] % (Auto) [place] # Seg Neutrophils % Seg Neuts % (Manual) Lymphocytes % (Manual) Monocytes % (Manual) Basophils % (Manual) Nucleated RBC % Seg Neutrophils # Seg Neutrophils # Man Lymphocytes # (Manual) Monocytes # (Manual) Eosinophils # (Manual) Basophils # (Manual) PT INR APTT Heparin Anti-Xa Level POC ABG pH POC ABG pCO2 POC ABG pO2 Sodium Potassium Chloride Carbon Dioxide 18 L BUN Creatinine 1.3 H Glucose 262 H POC Glucose 261 H 349 H Calcium 7.7 L Phosphorus 4.8 H D Magnesium AST Alkaline Phosphatase Troponin T C-Reactive Protein Total Protein Albumin Triglycerides HDL Cholesterol Lipase Vitamin B12 TSH Urine WBC (Auto) Urine Chloride Urine Total Protein Vancomycin Trough Crossmatch 10/19/16 10/20/16 10/20/16 16:48 00:17 05:20 WBC 22.5 H RBC 2.80 L Hgb 8.9 L Hct 28.3 L MCV 101 H RDW Plt Count Lymph % (Auto) [place] % (Auto) [place] # Seg Neutrophils % Seg Neuts % (Manual) Lymphocytes % (Manual) 10.0 L Monocytes % (Manual) Basophils % (Manual) Nucleated RBC % Seg Neutrophils # Seg Neutrophils # Man 13.3 H Lymphocytes # (Manual) Monocytes # (Manual) 1.1 H Eosinophils # (Manual) 0.7 H Basophils # (Manual) PT INR APTT Heparin Anti-Xa Level POC ABG pH POC ABG pCO2 POC ABG pO2 Sodium Potassium Chloride Carbon Dioxide BUN Creatinine Glucose POC Glucose 248 H 346 H Calcium Phosphorus Magnesium AST Alkaline Phosphatase Troponin T C-Reactive Protein Total Protein Albumin Triglycerides HDL Cholesterol Lipase Vitamin B12 TSH Urine WBC (Auto) Urine Chloride Urine Total Protein Vancomycin Trough Crossmatch 10/20/16 10/20/16 10/20/16 05:20 05:20 06:05 WBC RBC Hgb Hct MCV RDW Plt Count Lymph % (Auto) [place] % (Auto) [place] # Seg Neutrophils % Seg Neuts % (Manual) Lymphocytes % (Manual) Monocytes % (Manual) Basophils % (Manual) Nucleated RBC % Seg Neutrophils # Seg Neutrophils # Man Lymphocytes # (Manual) Monocytes # (Manual) Eosinophils # (Manual) Basophils # (Manual) PT INR APTT Heparin Anti-Xa Level 0.20 L POC ABG pH POC ABG pCO2 POC ABG pO2 Sodium Potassium Chloride Carbon Dioxide BUN 20 H Creatinine Glucose 374 H POC Glucose 337 H Calcium 8.3 L Phosphorus Magnesium AST Alkaline Phosphatase Troponin T C-Reactive Protein Total Protein Albumin Triglycerides HDL Cholesterol Lipase Vitamin B12 TSH Urine WBC (Auto) Urine Chloride Urine Total Protein Vancomycin Trough Crossmatch 10/20/16 10/20/16 10/20/16 11:49 13:59 17:56 WBC RBC Hgb Hct MCV RDW Plt Count Lymph % (Auto) [place] % (Auto) [place] # Seg Neutrophils % Seg Neuts % (Manual) Lymphocytes % (Manual) Monocytes % (Manual) Basophils % (Manual) Nucleated RBC % Seg Neutrophils # Seg Neutrophils # Man Lymphocytes # (Manual) Monocytes # (Manual) Eosinophils # (Manual) Basophils # (Manual) PT INR APTT Heparin Anti-Xa Level 2.00 H POC ABG pH POC ABG pCO2 POC ABG pO2 Sodium Potassium Chloride Carbon Dioxide BUN Creatinine Glucose POC Glucose 305 H 362 H Calcium Phosphorus Magnesium AST Alkaline Phosphatase Troponin T C-Reactive Protein Total Protein Albumin Triglycerides HDL Cholesterol Lipase Vitamin B12 TSH Urine WBC (Auto) Urine Chloride Urine Total Protein Vancomycin Trough Crossmatch 10/20/16 10/21/16 10/21/16 23:52 05:00 05:49 WBC 22.9 H RBC 2.49 L Hgb 7.7 L Hct 25.6 L MCV 103 H RDW Plt Count Lymph % (Auto) [place] % (Auto) [place] # Seg Neutrophils % Seg Neuts % (Manual) 94.0 H Lymphocytes % (Manual) 1.0 L Monocytes % (Manual) Basophils % (Manual) Nucleated RBC % Seg Neutrophils # Seg Neutrophils # Man 21.5 H Lymphocytes # (Manual) 0.2 L Monocytes # (Manual) 1.1 H Eosinophils # (Manual) Basophils # (Manual) PT INR APTT Heparin Anti-Xa Level POC ABG pH POC ABG pCO2 POC ABG pO2 Sodium Potassium Chloride Carbon Dioxide BUN Creatinine Glucose POC Glucose 252 H 180 H Calcium Phosphorus Magnesium AST Alkaline Phosphatase Troponin T C-Reactive Protein Total Protein Albumin Triglycerides HDL Cholesterol Lipase Vitamin B12 TSH Urine WBC (Auto) Urine Chloride Urine Total Protein Vancomycin Trough Crossmatch 10/21/16 10/21/16 10/21/16 11:47 11:49 14:10 WBC RBC Hgb Hct MCV RDW Plt Count Lymph % (Auto) [place] % (Auto) [place] # Seg Neutrophils % Seg Neuts % (Manual) Lymphocytes % (Manual) Monocytes % (Manual) Basophils % (Manual) Nucleated RBC % Seg Neutrophils # Seg Neutrophils # Man Lymphocytes # (Manual) Monocytes # (Manual) Eosinophils # (Manual) Basophils # (Manual) PT INR APTT Heparin Anti-Xa Level POC ABG pH POC ABG pCO2 POC ABG pO2 Sodium Potassium Chloride Carbon Dioxide BUN Creatinine Glucose POC Glucose 50 L 56 L 140 H Calcium Phosphorus Magnesium AST Alkaline Phosphatase Troponin T C-Reactive Protein Total Protein Albumin Triglycerides HDL Cholesterol Lipase Vitamin B12 TSH Urine WBC (Auto) Urine Chloride Urine Total Protein Vancomycin Trough Crossmatch 10/21/16 10/21/16 10/22/16 18:24 Unknown 00:07 WBC RBC Hgb Hct MCV RDW Plt Count Lymph % (Auto) [place] % (Auto) [place] # Seg Neutrophils % Seg Neuts % (Manual) Lymphocytes % (Manual) Monocytes % (Manual) Basophils % (Manual) Nucleated RBC % Seg Neutrophils # Seg Neutrophils # Man Lymphocytes # (Manual) Monocytes # (Manual) Eosinophils # (Manual) Basophils # (Manual) PT INR APTT Heparin Anti-Xa Level POC ABG pH POC ABG pCO2 POC ABG pO2 Sodium 150 H Potassium 3.1 L Chloride 112.4 H Carbon Dioxide BUN 25 H Creatinine 1.4 H Glucose POC Glucose 175 H 218 H Calcium 8.0 L Phosphorus Magnesium AST Alkaline Phosphatase Troponin T C-Reactive Protein Total Protein Albumin Triglycerides HDL Cholesterol Lipase Vitamin B12 TSH Urine WBC (Auto) Urine Chloride Urine Total Protein Vancomycin Trough Crossmatch 10/22/16 10/22/16 10/22/16 04:20 04:20 10:25 WBC 20.8 H RBC 2.37 L Hgb 7.5 L Hct 23.9 L MCV 101 H RDW Plt Count Lymph % (Auto) [place] % (Auto) [place] # Seg Neutrophils % Seg Neuts % (Manual) 89.0 H Lymphocytes % (Manual) 7.0 L Monocytes % (Manual) Basophils % (Manual) Nucleated RBC % Seg Neutrophils # Seg Neutrophils # Man 18.5 H Lymphocytes # (Manual) Monocytes # (Manual) Eosinophils # (Manual) Basophils # (Manual) 0.2 H PT INR APTT Heparin Anti-Xa Level POC ABG pH POC ABG pCO2 POC ABG pO2 Sodium 148 H Potassium 2.9 L* Chloride 109.4 H Carbon Dioxide BUN 26 H Creatinine Glucose 140 H POC Glucose Calcium 7.5 L Phosphorus Magnesium AST Alkaline Phosphatase Troponin T C-Reactive Protein Total Protein Albumin Triglycerides HDL Cholesterol Lipase Vitamin B12 976.8 H TSH Urine WBC (Auto) Urine Chloride Urine Total Protein Vancomycin Trough Crossmatch 10/22/16 10/22/16 10/22/16 10:25 14:50 18:16 WBC RBC Hgb Hct MCV RDW Plt Count Lymph % (Auto) [place] % (Auto) [place] # Seg Neutrophils % Seg Neuts % (Manual) Lymphocytes % (Manual) Monocytes % (Manual) Basophils % (Manual) Nucleated RBC % Seg Neutrophils # Seg Neutrophils # Man Lymphocytes # (Manual) Monocytes # (Manual) Eosinophils # (Manual) Basophils # (Manual) PT INR APTT Heparin Anti-Xa Level POC ABG pH POC ABG pCO2 POC ABG pO2 Sodium Potassium Chloride Carbon Dioxide BUN Creatinine Glucose POC Glucose 193 H Calcium Phosphorus Magnesium AST Alkaline Phosphatase Troponin T C-Reactive Protein Total Protein Albumin Triglycerides HDL Cholesterol Lipase Vitamin B12 TSH 0.143 L 0.162 L Urine WBC (Auto) Urine Chloride Urine Total Protein Vancomycin Trough Crossmatch 10/22/16 10/22/16 10/22/16 20:00 20:00 20:00 WBC 24.1 H RBC 2.58 L Hgb 8.2 L Hct 26.4 L MCV 102 H RDW Plt Count Lymph % (Auto) [place] % (Auto) [place] # Seg Neutrophils % Seg Neuts % (Manual) 74.0 H Lymphocytes % (Manual) 7.0 L Monocytes % (Manual) Basophils % (Manual) Nucleated RBC % Seg Neutrophils # Seg Neutrophils # Man 17.8 H Lymphocytes # (Manual) Monocytes # (Manual) Eosinophils # (Manual) Basophils # (Manual) PT INR APTT Heparin Anti-Xa Level 1.92 H POC ABG pH POC ABG pCO2 POC ABG pO2 Sodium Potassium Chloride Carbon Dioxide BUN Creatinine Glucose POC Glucose Calcium Phosphorus Magnesium AST Alkaline Phosphatase Troponin T C-Reactive Protein Total Protein Albumin Triglycerides HDL Cholesterol Lipase Vitamin B12 TSH Urine WBC (Auto) Urine Chloride Urine Total Protein Vancomycin Trough Crossmatch See Detail 10/23/16 10/23/16 10/23/16 00:21 06:09 12:07 WBC RBC Hgb Hct MCV RDW Plt Count Lymph % (Auto) [place] % (Auto) [place] # Seg Neutrophils % Seg Neuts % (Manual) Lymphocytes % (Manual) Monocytes % (Manual) Basophils % (Manual) Nucleated RBC % Seg Neutrophils # Seg Neutrophils # Man Lymphocytes # (Manual) Monocytes # (Manual) Eosinophils # (Manual) Basophils # (Manual) PT INR APTT Heparin Anti-Xa Level POC ABG pH POC ABG pCO2 POC ABG pO2 Sodium Potassium Chloride Carbon Dioxide BUN Creatinine Glucose POC Glucose 283 H 241 H 340 H Calcium Phosphorus Magnesium AST Alkaline Phosphatase Troponin T C-Reactive Protein Total Protein Albumin Triglycerides HDL Cholesterol Lipase Vitamin B12 TSH Urine WBC (Auto) Urine Chloride Urine Total Protein Vancomycin Trough Crossmatch 10/23/16 10/23/16 10/23/16 14:01 16:00 17:59 WBC RBC Hgb Hct MCV RDW Plt Count Lymph % (Auto) [place] % (Auto) [place] # Seg Neutrophils % Seg Neuts % (Manual) Lymphocytes % (Manual) Monocytes % (Manual) Basophils % (Manual) Nucleated RBC % Seg Neutrophils # Seg Neutrophils # Man Lymphocytes # (Manual) Monocytes # (Manual) Eosinophils # (Manual) Basophils # (Manual) PT INR APTT Heparin Anti-Xa Level 0.19 L POC ABG pH POC ABG pCO2 32.4 L POC ABG pO2 Sodium Potassium Chloride Carbon Dioxide BUN Creatinine Glucose POC Glucose 245 H Calcium Phosphorus Magnesium AST Alkaline Phosphatase Troponin T C-Reactive Protein Total Protein Albumin Triglycerides HDL Cholesterol Lipase Vitamin B12 TSH Urine WBC (Auto) Urine Chloride Urine Total Protein Vancomycin Trough Crossmatch 10/23/16 10/23/16 10/23/16 22:55 Unknown Unknown WBC 22.6 H RBC 3.26 L Hgb Hct MCV RDW 17.1 H Plt Count Lymph % (Auto) [place] % (Auto) [place] # Seg Neutrophils % Seg Neuts % (Manual) Lymphocytes % (Manual) 11.0 L Monocytes % (Manual) Basophils % (Manual) Nucleated RBC % Seg Neutrophils # Seg Neutrophils # Man 14.0 H Lymphocytes # (Manual) Monocytes # (Manual) Eosinophils # (Manual) Basophils # (Manual) PT INR APTT Heparin Anti-Xa Level 0.17 L 0.15 L POC ABG pH POC ABG pCO2 POC ABG pO2 Sodium Potassium Chloride Carbon Dioxide BUN Creatinine Glucose POC Glucose Calcium Phosphorus Magnesium AST Alkaline Phosphatase Troponin T C-Reactive Protein Total Protein Albumin Triglycerides HDL Cholesterol Lipase Vitamin B12 TSH Urine WBC (Auto) Urine Chloride Urine Total Protein Vancomycin Trough Crossmatch 10/23/16 10/24/16 10/24/16 Unknown 00:05 05:30 WBC RBC Hgb Hct MCV RDW Plt Count Lymph % (Auto) [place] % (Auto) [place] # Seg Neutrophils % Seg Neuts % (Manual) Lymphocytes % (Manual) Monocytes % (Manual) Basophils % (Manual) Nucleated RBC % Seg Neutrophils # Seg Neutrophils # Man Lymphocytes # (Manual) Monocytes # (Manual) Eosinophils # (Manual) Basophils # (Manual) PT INR APTT Heparin Anti-Xa Level 0.13 L POC ABG pH POC ABG pCO2 POC ABG pO2 Sodium Potassium Chloride 111.2 H Carbon Dioxide 20 L BUN 25 H Creatinine Glucose 227 H POC Glucose 118 H Calcium 7.1 L Phosphorus Magnesium AST Alkaline Phosphatase Troponin T C-Reactive Protein Total Protein Albumin Triglycerides HDL Cholesterol Lipase Vitamin B12 TSH Urine WBC (Auto) Urine Chloride Urine Total Protein Vancomycin Trough Crossmatch 10/24/16 10/24/16 10/24/16 11:00 11:00 12:06 WBC 17.6 H RBC 2.92 L Hgb 9.2 L Hct 28.3 L MCV RDW 16.9 H Plt Count Lymph % (Auto) [place] % (Auto) [place] # Seg Neutrophils % Seg Neuts % (Manual) Lymphocytes % (Manual) Monocytes % (Manual) Basophils % (Manual) Nucleated RBC % Seg Neutrophils # Seg Neutrophils # Man Lymphocytes # (Manual) Monocytes # (Manual) Eosinophils # (Manual) Basophils # (Manual) PT INR APTT Heparin Anti-Xa Level 0.27 L POC ABG pH POC ABG pCO2 POC ABG pO2 Sodium Potassium Chloride Carbon Dioxide BUN Creatinine Glucose POC Glucose 166 H Calcium Phosphorus Magnesium AST Alkaline Phosphatase Troponin T C-Reactive Protein Total Protein Albumin Triglycerides HDL Cholesterol Lipase Vitamin B12 TSH Urine WBC (Auto) Urine Chloride Urine Total Protein Vancomycin Trough Crossmatch 10/24/16 10/25/16 10/25/16 12:27 00:49 03:30 WBC RBC Hgb 8.8 L Hct 28.1 L MCV RDW Plt Count Lymph % (Auto) [place] % (Auto) [place] # Seg Neutrophils % Seg Neuts % (Manual) Lymphocytes % (Manual) Monocytes % (Manual) Basophils % (Manual) Nucleated RBC % Seg Neutrophils # Seg Neutrophils # Man Lymphocytes # (Manual) Monocytes # (Manual) Eosinophils # (Manual) Basophils # (Manual) PT INR APTT Heparin Anti-Xa Level POC ABG pH POC ABG pCO2 33.9 L POC ABG pO2 Sodium Potassium Chloride Carbon Dioxide BUN Creatinine Glucose POC Glucose 121 H Calcium Phosphorus Magnesium AST Alkaline Phosphatase Troponin T C-Reactive Protein Total Protein Albumin Triglycerides HDL Cholesterol Lipase Vitamin B12 TSH Urine WBC (Auto) Urine Chloride Urine Total Protein Vancomycin Trough Crossmatch 10/25/16 10/25/16 10/25/16 09:49 12:10 19:25 WBC 21.1 H RBC 3.02 L Hgb 9.3 L Hct 28.9 L MCV RDW 16.3 H Plt Count Lymph % (Auto) [place] % (Auto) [place] # Seg Neutrophils % Seg Neuts % (Manual) 81.0 H Lymphocytes % (Manual) 9.0 L Monocytes % (Manual) Basophils % (Manual) Nucleated RBC % Seg Neutrophils # Seg Neutrophils # Man 17.1 H Lymphocytes # (Manual) Monocytes # (Manual) Eosinophils # (Manual) Basophils # (Manual) PT INR APTT Heparin Anti-Xa Level POC ABG pH POC ABG pCO2 POC ABG pO2 Sodium Potassium Chloride Carbon Dioxide BUN Creatinine Glucose POC Glucose 158 H 151 H Calcium Phosphorus Magnesium AST Alkaline Phosphatase Troponin T C-Reactive Protein Total Protein Albumin Triglycerides HDL Cholesterol Lipase Vitamin B12 TSH Urine WBC (Auto) Urine Chloride Urine Total Protein Vancomycin Trough Crossmatch 10/26/16 10/26/16 10/26/16 00:20 01:09 05:02 WBC 22.2 H RBC 2.89 L Hgb 8.7 L Hct 27.8 L MCV RDW 16.4 H Plt Count Lymph % (Auto) [place] % (Auto) [place] # Seg Neutrophils % Seg Neuts % (Manual) Lymphocytes % (Manual) Monocytes % (Manual) Basophils % (Manual) Nucleated RBC % Seg Neutrophils # Seg Neutrophils # Man Lymphocytes # (Manual) Monocytes # (Manual) Eosinophils # (Manual) Basophils # (Manual) PT INR APTT Heparin Anti-Xa Level POC ABG pH POC ABG pCO2 POC ABG pO2 Sodium Potassium Chloride Carbon Dioxide BUN Creatinine Glucose POC Glucose 44 L 112 H Calcium Phosphorus Magnesium AST Alkaline Phosphatase Troponin T C-Reactive Protein Total Protein Albumin Triglycerides HDL Cholesterol Lipase Vitamin B12 TSH Urine WBC (Auto) Urine Chloride Urine Total Protein Vancomycin Trough Crossmatch 10/26/16 10/26/16 10/26/16 05:02 12:11 12:14 WBC RBC Hgb Hct MCV RDW Plt Count Lymph % (Auto) [place] % (Auto) [place] # Seg Neutrophils % Seg Neuts % (Manual) Lymphocytes % (Manual) Monocytes % (Manual) Basophils % (Manual) Nucleated RBC % Seg Neutrophils # Seg Neutrophils # Man Lymphocytes # (Manual) Monocytes # (Manual) Eosinophils # (Manual) Basophils # (Manual) PT INR APTT Heparin Anti-Xa Level POC ABG pH POC ABG pCO2 32.0 L POC ABG pO2 33 L Sodium Potassium 3.2 L D Chloride Carbon Dioxide 20 L BUN 24 H Creatinine Glucose 104 H POC Glucose 194 H Calcium 7.7 L Phosphorus Magnesium AST Alkaline Phosphatase Troponin T C-Reactive Protein Total Protein Albumin Triglycerides HDL Cholesterol Lipase Vitamin B12 TSH Urine WBC (Auto) Urine Chloride Urine Total Protein Vancomycin Trough Crossmatch 10/26/16 10/26/16 10/27/16 15:28 17:23 00:04 WBC RBC Hgb Hct MCV RDW Plt Count Lymph % (Auto) [place] % (Auto) [place] # Seg Neutrophils % Seg Neuts % (Manual) Lymphocytes % (Manual) Monocytes % (Manual) Basophils % (Manual) Nucleated RBC % Seg Neutrophils # Seg Neutrophils # Man Lymphocytes # (Manual) Monocytes # (Manual) Eosinophils # (Manual) Basophils # (Manual) PT INR APTT Heparin Anti-Xa Level POC ABG pH POC ABG pCO2 33.7 L POC ABG pO2 Sodium Potassium Chloride Carbon Dioxide BUN Creatinine Glucose POC Glucose 181 H 230 H Calcium Phosphorus Magnesium AST Alkaline Phosphatase Troponin T C-Reactive Protein Total Protein Albumin Triglycerides HDL Cholesterol Lipase Vitamin B12 TSH Urine WBC (Auto) Urine Chloride Urine Total Protein Vancomycin Trough Crossmatch 10/27/16 10/27/16 10/27/16 05:15 05:15 05:38 WBC 25.5 H RBC 3.07 L Hgb 9.4 L Hct 30.1 L MCV 98 H RDW 16.4 H Plt Count 527 H Lymph % (Auto) [place] % (Auto) [place] # Seg Neutrophils % Seg Neuts % (Manual) Lymphocytes % (Manual) Monocytes % (Manual) Basophils % (Manual) Nucleated RBC % Seg Neutrophils # Seg Neutrophils # Man Lymphocytes # (Manual) Monocytes # (Manual) Eosinophils # (Manual) Basophils # (Manual) PT INR APTT Heparin Anti-Xa Level POC ABG pH POC ABG pCO2 POC ABG pO2 Sodium Potassium Chloride Carbon Dioxide 19 L BUN 23 H Creatinine Glucose 160 H POC Glucose 168 H Calcium 8.0 L Phosphorus Magnesium AST Alkaline Phosphatase Troponin T C-Reactive Protein Total Protein Albumin Triglycerides HDL Cholesterol Lipase Vitamin B12 TSH Urine WBC (Auto) Urine Chloride Urine Total Protein Vancomycin Trough Crossmatch 10/27/16 10/27/16 10/27/16 11:59 18:35 23:48 WBC RBC Hgb Hct MCV RDW Plt Count Lymph % (Auto) [place] % (Auto) [place] # Seg Neutrophils % Seg Neuts % (Manual) Lymphocytes % (Manual) Monocytes % (Manual) Basophils % (Manual) Nucleated RBC % Seg Neutrophils # Seg Neutrophils # Man Lymphocytes # (Manual) Monocytes # (Manual) Eosinophils # (Manual) Basophils # (Manual) PT INR APTT Heparin Anti-Xa Level POC ABG pH POC ABG pCO2 POC ABG pO2 Sodium Potassium Chloride Carbon Dioxide BUN Creatinine Glucose POC Glucose 197 H 318 H 316 H Calcium Phosphorus Magnesium AST Alkaline Phosphatase Troponin T C-Reactive Protein Total Protein Albumin Triglycerides HDL Cholesterol Lipase Vitamin B12 TSH Urine WBC (Auto) Urine Chloride Urine Total Protein Vancomycin Trough Crossmatch 10/28/16 10/28/16 10/28/16 03:13 04:10 04:10 WBC 18.8 H RBC 2.64 L Hgb 8.1 L Hct 26.1 L MCV 99 H RDW 16.2 H Plt Count 544 H Lymph % (Auto) [place] % (Auto) [place] # Seg Neutrophils % Seg Neuts % (Manual) Lymphocytes % (Manual) Monocytes % (Manual) Basophils % (Manual) Nucleated RBC % Seg Neutrophils # Seg Neutrophils # Man Lymphocytes # (Manual) Monocytes # (Manual) Eosinophils # (Manual) Basophils # (Manual) PT INR APTT Heparin Anti-Xa Level POC ABG pH POC ABG pCO2 POC ABG pO2 Sodium Potassium Chloride Carbon Dioxide 21 L BUN 24 H Creatinine Glucose 302 H POC Glucose 304 H Calcium 7.7 L Phosphorus Magnesium AST Alkaline Phosphatase Troponin T C-Reactive Protein Total Protein Albumin Triglycerides HDL Cholesterol Lipase Vitamin B12 TSH Urine WBC (Auto) Urine Chloride Urine Total Protein Vancomycin Trough Crossmatch 10/28/16 10/28/16 10/28/16 04:10 12:36 18:27 WBC RBC Hgb Hct MCV RDW Plt Count Lymph % (Auto) [place] % (Auto) [place] # Seg Neutrophils % Seg Neuts % (Manual) Lymphocytes % (Manual) Monocytes % (Manual) Basophils % (Manual) Nucleated RBC % Seg Neutrophils # Seg Neutrophils # Man Lymphocytes # (Manual) Monocytes # (Manual) Eosinophils # (Manual) Basophils # (Manual) PT INR APTT Heparin Anti-Xa Level 0.20 L POC ABG pH POC ABG pCO2 POC ABG pO2 Sodium Potassium Chloride Carbon Dioxide BUN Creatinine Glucose POC Glucose 205 H 339 H Calcium Phosphorus Magnesium AST Alkaline Phosphatase Troponin T C-Reactive Protein Total Protein Albumin Triglycerides HDL Cholesterol Lipase Vitamin B12 TSH Urine WBC (Auto) Urine Chloride Urine Total Protein Vancomycin Trough Crossmatch 10/29/16 10/29/16 10/29/16 01:05 06:19 09:30 WBC 20.3 H RBC 2.80 L Hgb 8.5 L Hct 26.7 L MCV RDW 15.4 H Plt Count 571 H Lymph % (Auto) [place] % (Auto) [place] # Seg Neutrophils % Seg Neuts % (Manual) 75.0 H Lymphocytes % (Manual) 4.0 L Monocytes % (Manual) Basophils % (Manual) Nucleated RBC % Seg Neutrophils # Seg Neutrophils # Man 15.2 H Lymphocytes # (Manual) 0.8 L Monocytes # (Manual) Eosinophils # (Manual) Basophils # (Manual) PT INR APTT Heparin Anti-Xa Level POC ABG pH POC ABG pCO2 POC ABG pO2 Sodium Potassium Chloride Carbon Dioxide BUN Creatinine Glucose POC Glucose 275 H 179 H Calcium Phosphorus Magnesium AST Alkaline Phosphatase Troponin T C-Reactive Protein Total Protein Albumin Triglycerides HDL Cholesterol Lipase Vitamin B12 TSH Urine WBC (Auto) Urine Chloride Urine Total Protein Vancomycin Trough Crossmatch 10/29/16 10/29/16 10/29/16 11:46 15:18 17:55 WBC RBC Hgb Hct MCV RDW Plt Count Lymph % (Auto) [place] % (Auto) [place] # Seg Neutrophils % Seg Neuts % (Manual) Lymphocytes % (Manual) Monocytes % (Manual) Basophils % (Manual) Nucleated RBC % Seg Neutrophils # Seg Neutrophils # Man Lymphocytes # (Manual) Monocytes # (Manual) Eosinophils # (Manual) Basophils # (Manual) PT INR APTT Heparin Anti-Xa Level 1.15 H POC ABG pH POC ABG pCO2 POC ABG pO2 Sodium Potassium Chloride Carbon Dioxide BUN Creatinine Glucose POC Glucose 122 H 255 H Calcium Phosphorus Magnesium AST Alkaline Phosphatase Troponin T C-Reactive Protein Total Protein Albumin Triglycerides HDL Cholesterol Lipase Vitamin B12 TSH Urine WBC (Auto) Urine Chloride Urine Total Protein Vancomycin Trough Crossmatch 10/30/16 10/30/16 10/30/16 00:10 05:30 05:30 WBC 19.8 H RBC 2.51 L Hgb 7.7 L Hct 24.1 L MCV RDW 15.5 H Plt Count 534 H Lymph % (Auto) [place] % (Auto) [place] # Seg Neutrophils % Seg Neuts % (Manual) Lymphocytes % (Manual) Monocytes % (Manual) Basophils % (Manual) Nucleated RBC % Seg Neutrophils # Seg Neutrophils # Man Lymphocytes # (Manual) Monocytes # (Manual) Eosinophils # (Manual) Basophils # (Manual) PT INR APTT Heparin Anti-Xa Level POC ABG pH POC ABG pCO2 POC ABG pO2 Sodium Potassium Chloride Carbon Dioxide BUN Creatinine Glucose 211 H POC Glucose 202 H Calcium 7.4 L Phosphorus Magnesium AST Alkaline Phosphatase Troponin T C-Reactive Protein Total Protein Albumin Triglycerides HDL Cholesterol Lipase Vitamin B12 TSH Urine WBC (Auto) Urine Chloride Urine Total Protein Vancomycin Trough Crossmatch 10/30/16 10/30/16 10/30/16 06:32 12:51 17:47 WBC RBC Hgb Hct MCV RDW Plt Count Lymph % (Auto) [place] % (Auto) [place] # Seg Neutrophils % Seg Neuts % (Manual) Lymphocytes % (Manual) Monocytes % (Manual) Basophils % (Manual) Nucleated RBC % Seg Neutrophils # Seg Neutrophils # Man Lymphocytes # (Manual) Monocytes # (Manual) Eosinophils # (Manual) Basophils # (Manual) PT INR APTT Heparin Anti-Xa Level POC ABG pH POC ABG pCO2 POC ABG pO2 Sodium Potassium Chloride Carbon Dioxide BUN Creatinine Glucose POC Glucose 207 H 218 H 169 H Calcium Phosphorus Magnesium AST Alkaline Phosphatase Troponin T C-Reactive Protein Total Protein Albumin Triglycerides HDL Cholesterol Lipase Vitamin B12 TSH Urine WBC (Auto) Urine Chloride Urine Total Protein Vancomycin Trough Crossmatch 10/30/16 10/31/16 10/31/16 23:59 05:25 11:21 WBC RBC Hgb Hct MCV RDW Plt Count Lymph % (Auto) [place] % (Auto) [place] # Seg Neutrophils % Seg Neuts % (Manual) Lymphocytes % (Manual) Monocytes % (Manual) Basophils % (Manual) Nucleated RBC % Seg Neutrophils # Seg Neutrophils # Man Lymphocytes # (Manual) Monocytes # (Manual) Eosinophils # (Manual) Basophils # (Manual) PT INR APTT Heparin Anti-Xa Level POC ABG pH POC ABG pCO2 POC ABG pO2 Sodium Potassium Chloride Carbon Dioxide BUN Creatinine Glucose POC Glucose 138 H 127 H 132 H Calcium Phosphorus Magnesium AST Alkaline Phosphatase Troponin T C-Reactive Protein Total Protein Albumin Triglycerides HDL Cholesterol Lipase Vitamin B12 TSH Urine WBC (Auto) Urine Chloride Urine Total Protein Vancomycin Trough Crossmatch 10/31/16 10/31/16 11/01/16 17:07 23:54 05:47 WBC RBC Hgb Hct MCV RDW Plt Count Lymph % (Auto) [place] % (Auto) [place] # Seg Neutrophils % Seg Neuts % (Manual) Lymphocytes % (Manual) Monocytes % (Manual) Basophils % (Manual) Nucleated RBC % Seg Neutrophils # Seg Neutrophils # Man Lymphocytes # (Manual) Monocytes # (Manual) Eosinophils # (Manual) Basophils # (Manual) PT INR APTT Heparin Anti-Xa Level POC ABG pH POC ABG pCO2 POC ABG pO2 Sodium Potassium Chloride Carbon Dioxide BUN Creatinine Glucose POC Glucose 138 H 153 H 150 H Calcium Phosphorus Magnesium AST Alkaline Phosphatase Troponin T C-Reactive Protein Total Protein Albumin Triglycerides HDL Cholesterol Lipase Vitamin B12 TSH Urine WBC (Auto) Urine Chloride Urine Total Protein Vancomycin Trough Crossmatch 11/01/16 11/01/16 11/01/16 06:33 06:33 12:16 WBC 19.2 H RBC 2.51 L Hgb 7.9 L Hct 24.8 L MCV 99 H D RDW 16.1 H Plt Count 569 H Lymph % (Auto) [place] % (Auto) [place] # Seg Neutrophils % Seg Neuts % (Manual) Lymphocytes % (Manual) Monocytes % (Manual) Basophils % (Manual) Nucleated RBC % Seg Neutrophils # Seg Neutrophils # Man Lymphocytes # (Manual) Monocytes # (Manual) Eosinophils # (Manual) Basophils # (Manual) PT INR APTT Heparin Anti-Xa Level POC ABG pH POC ABG pCO2 POC ABG pO2 Sodium Potassium 3.5 L Chloride Carbon Dioxide 21 L BUN Creatinine Glucose 137 H POC Glucose 125 H Calcium 7.7 L Phosphorus Magnesium AST Alkaline Phosphatase 148 H Troponin T C-Reactive Protein Total Protein 6.2 L Albumin 2.0 L Triglycerides HDL Cholesterol Lipase Vitamin B12 TSH Urine WBC (Auto) Urine Chloride Urine Total Protein Vancomycin Trough Crossmatch 11/01/16 11/02/16 11/02/16 17:37 00:05 04:15 WBC RBC Hgb Hct MCV RDW Plt Count Lymph % (Auto) [place] % (Auto) [place] # Seg Neutrophils % Seg Neuts % (Manual) Lymphocytes % (Manual) Monocytes % (Manual) Basophils % (Manual) Nucleated RBC % Seg Neutrophils # Seg Neutrophils # Man Lymphocytes # (Manual) Monocytes # (Manual) Eosinophils # (Manual) Basophils # (Manual) PT INR APTT Heparin Anti-Xa Level < 0.10 L POC ABG pH POC ABG pCO2 POC ABG pO2 Sodium Potassium 3.2 L Chloride Carbon Dioxide BUN 6 L Creatinine Glucose 135 H POC Glucose 164 H Calcium 7.5 L Phosphorus Magnesium AST Alkaline Phosphatase 132 H Troponin T C-Reactive Protein Total Protein 6.2 L Albumin 1.8 L Triglycerides HDL Cholesterol Lipase Vitamin B12 TSH Urine WBC (Auto) Urine Chloride Urine Total Protein Vancomycin Trough Crossmatch 11/02/16 11/02/16 11/02/16 04:15 05:54 12:15 WBC 17.7 H RBC 2.43 L Hgb 7.6 L Hct 23.5 L MCV RDW 15.9 H Plt Count 502 H Lymph % (Auto) [place] % (Auto) [place] # Seg Neutrophils % Seg Neuts % (Manual) 84.0 H Lymphocytes % (Manual) 11.0 L Monocytes % (Manual) Basophils % (Manual) Nucleated RBC % 1.0 H Seg Neutrophils # Seg Neutrophils # Man 14.9 H Lymphocytes # (Manual) Monocytes # (Manual) Eosinophils # (Manual) Basophils # (Manual) PT INR APTT Heparin Anti-Xa Level POC ABG pH POC ABG pCO2 POC ABG pO2 Sodium Potassium Chloride Carbon Dioxide BUN Creatinine Glucose POC Glucose 152 H 137 H Calcium Phosphorus Magnesium AST Alkaline Phosphatase Troponin T C-Reactive Protein Total Protein Albumin Triglycerides HDL Cholesterol Lipase Vitamin B12 TSH Urine WBC (Auto) Urine Chloride Urine Total Protein Vancomycin Trough Crossmatch 11/02/16 11/03/16 11/03/16 17:00 00:05 00:05 WBC RBC Hgb Hct MCV RDW Plt Count Lymph % (Auto) [place] % (Auto) [place] # Seg Neutrophils % Seg Neuts % (Manual) Lymphocytes % (Manual) Monocytes % (Manual) Basophils % (Manual) Nucleated RBC % Seg Neutrophils # Seg Neutrophils # Man Lymphocytes # (Manual) Monocytes # (Manual) Eosinophils # (Manual) Basophils # (Manual) PT INR APTT Heparin Anti-Xa Level POC ABG pH POC ABG pCO2 POC ABG pO2 Sodium Potassium Chloride Carbon Dioxide 20 L BUN 5 L Creatinine Glucose 139 H POC Glucose 161 H Calcium 6.7 L Phosphorus Magnesium 1.2 L AST Alkaline Phosphatase Troponin T C-Reactive Protein Total Protein Albumin Triglycerides HDL Cholesterol Lipase Vitamin B12 TSH Urine WBC (Auto) Urine Chloride Urine Total Protein Vancomycin Trough Crossmatch 11/03/16 11/03/16 11/03/16 00:05 02:05 04:23 WBC 15.9 H 14.0 H RBC 1.93 L 2.38 L Hgb 5.9 L* 7.3 L Hct 18.9 L* 23.1 L MCV 98 H RDW 15.9 H 15.9 H Plt Count Lymph % (Auto) [place] % (Auto) [place] # Seg Neutrophils % Seg Neuts % (Manual) 85.0 H Lymphocytes % (Manual) 4.0 L Monocytes % (Manual) Basophils % (Manual) Nucleated RBC % Seg Neutrophils # Seg Neutrophils # Man 13.5 H Lymphocytes # (Manual) 0.6 L Monocytes # (Manual) Eosinophils # (Manual) Basophils # (Manual) PT INR APTT Heparin Anti-Xa Level POC ABG pH POC ABG pCO2 POC ABG pO2 Sodium Potassium Chloride Carbon Dioxide BUN 5 L Creatinine Glucose 127 H POC Glucose Calcium 7.2 L Phosphorus Magnesium AST Alkaline Phosphatase Troponin T C-Reactive Protein Total Protein 5.8 L Albumin 1.5 L Triglycerides HDL Cholesterol Lipase Vitamin B12 TSH Urine WBC (Auto) Urine Chloride Urine Total Protein Vancomycin Trough Crossmatch 11/03/16 11/03/16 11/03/16 09:14 09:27 11:54 WBC RBC Hgb Hct MCV RDW Plt Count Lymph % (Auto) [place] % (Auto) [place] # Seg Neutrophils % Seg Neuts % (Manual) Lymphocytes % (Manual) Monocytes % (Manual) Basophils % (Manual) Nucleated RBC % Seg Neutrophils # Seg Neutrophils # Man Lymphocytes # (Manual) Monocytes # (Manual) Eosinophils # (Manual) Basophils # (Manual) PT INR APTT Heparin Anti-Xa Level 0.11 L POC ABG pH POC ABG pCO2 POC ABG pO2 Sodium Potassium Chloride Carbon Dioxide BUN 5 L Creatinine Glucose 111 H POC Glucose 139 H Calcium 6.7 L Phosphorus Magnesium AST Alkaline Phosphatase Troponin T C-Reactive Protein Total Protein Albumin Triglycerides HDL Cholesterol Lipase Vitamin B12 TSH Urine WBC (Auto) Urine Chloride Urine Total Protein Vancomycin Trough Crossmatch 11/03/16 11/03/16 11/03/16 16:26 18:01 18:01 WBC RBC Hgb Hct MCV RDW Plt Count Lymph % (Auto) [place] % (Auto) [place] # Seg Neutrophils % Seg Neuts % (Manual) Lymphocytes % (Manual) Monocytes % (Manual) Basophils % (Manual) Nucleated RBC % Seg Neutrophils # Seg Neutrophils # Man Lymphocytes # (Manual) Monocytes # (Manual) Eosinophils # (Manual) Basophils # (Manual) PT INR APTT Heparin Anti-Xa Level 2.00 H POC ABG pH POC ABG pCO2 POC ABG pO2 Sodium Potassium Chloride Carbon Dioxide BUN Creatinine Glucose POC Glucose 142 H Calcium Phosphorus Magnesium AST Alkaline Phosphatase Troponin T C-Reactive Protein Total Protein Albumin Triglycerides HDL Cholesterol Lipase Vitamin B12 TSH Urine WBC (Auto) Urine Chloride Urine Total Protein Vancomycin Trough Crossmatch See Detail 11/04/16 11/04/16 11/04/16 02:15 02:15 06:35 WBC 11.8 H RBC 2.39 L Hgb 7.4 L Hct 23.1 L MCV RDW 15.9 H Plt Count Lymph % (Auto) [place] % (Auto) [place] # Seg Neutrophils % Seg Neuts % (Manual) 76.0 H Lymphocytes % (Manual) 12.0 L Monocytes % (Manual) 9.0 H Basophils % (Manual) Nucleated RBC % Seg Neutrophils # Seg Neutrophils # Man 9.0 H Lymphocytes # (Manual) Monocytes # (Manual) 1.1 H Eosinophils # (Manual) Basophils # (Manual) PT INR APTT Heparin Anti-Xa Level < 0.10 L POC ABG pH POC ABG pCO2 POC ABG pO2 Sodium Potassium Chloride Carbon Dioxide 21 L BUN 5 L Creatinine Glucose 112 H POC Glucose Calcium 6.8 L Phosphorus Magnesium AST Alkaline Phosphatase Troponin T C-Reactive Protein Total Protein 5.7 L Albumin 1.7 L Triglycerides HDL Cholesterol Lipase Vitamin B12 TSH Urine WBC (Auto) Urine Chloride Urine Total Protein Vancomycin Trough Crossmatch 11/04/16 11/04/16 11/04/16 10:51 12:58 15:04 WBC RBC Hgb Hct MCV RDW Plt Count Lymph % (Auto) [place] % (Auto) [place] # Seg Neutrophils % Seg Neuts % (Manual) Lymphocytes % (Manual) Monocytes % (Manual) Basophils % (Manual) Nucleated RBC % Seg Neutrophils # Seg Neutrophils # Man Lymphocytes # (Manual) Monocytes # (Manual) Eosinophils # (Manual) Basophils # (Manual) PT INR APTT Heparin Anti-Xa Level 1.05 H POC ABG pH POC ABG pCO2 33.7 L POC ABG pO2 60 L Sodium Potassium Chloride Carbon Dioxide BUN Creatinine Glucose POC Glucose 118 H Calcium Phosphorus Magnesium AST Alkaline Phosphatase Troponin T C-Reactive Protein Total Protein Albumin Triglycerides HDL Cholesterol Lipase Vitamin B12 TSH Urine WBC (Auto) Urine Chloride Urine Total Protein Vancomycin Trough Crossmatch 11/04/16 11/04/16 11/05/16 17:20 20:31 02:30 WBC RBC Hgb Hct MCV RDW Plt Count Lymph % (Auto) [place] % (Auto) [place] # Seg Neutrophils % Seg Neuts % (Manual) Lymphocytes % (Manual) Monocytes % (Manual) Basophils % (Manual) Nucleated RBC % Seg Neutrophils # Seg Neutrophils # Man Lymphocytes # (Manual) Monocytes # (Manual) Eosinophils # (Manual) Basophils # (Manual) PT INR APTT Heparin Anti-Xa Level POC ABG pH POC ABG pCO2 POC ABG pO2 Sodium Potassium 3.5 L Chloride Carbon Dioxide 18 L BUN 5 L Creatinine 0.6 L Glucose 110 H POC Glucose 228 H 169 H Calcium 7.1 L Phosphorus Magnesium AST Alkaline Phosphatase Troponin T C-Reactive Protein Total Protein Albumin 1.9 L Triglycerides HDL Cholesterol Lipase Vitamin B12 TSH Urine WBC (Auto) Urine Chloride Urine Total Protein Vancomycin Trough Crossmatch 11/05/16 11/05/16 11/05/16 02:30 17:52 21:07 WBC 14.1 H RBC Hgb Hct MCV RDW 16.7 H Plt Count Lymph % (Auto) [place] % (Auto) [place] # Seg Neutrophils % Seg Neuts % (Manual) 80.0 H Lymphocytes % (Manual) 6.0 L Monocytes % (Manual) 8.0 H Basophils % (Manual) Nucleated RBC % Seg Neutrophils # Seg Neutrophils # Man 11.3 H Lymphocytes # (Manual) 0.8 L Monocytes # (Manual) 1.1 H Eosinophils # (Manual) Basophils # (Manual) PT INR APTT Heparin Anti-Xa Level < 0.10 L POC ABG pH POC ABG pCO2 POC ABG pO2 Sodium Potassium Chloride Carbon Dioxide BUN Creatinine Glucose POC Glucose 174 H Calcium Phosphorus Magnesium AST Alkaline Phosphatase Troponin T C-Reactive Protein Total Protein Albumin Triglycerides HDL Cholesterol Lipase Vitamin B12 TSH Urine WBC (Auto) Urine Chloride Urine Total Protein Vancomycin Trough Crossmatch 11/05/16 11/06/16 11/06/16 23:30 05:00 05:00 WBC 15.2 H RBC 3.29 L Hgb 10.0 L Hct MCV RDW 16.9 H Plt Count Lymph % (Auto) [place] % (Auto) [place] # Seg Neutrophils % Seg Neuts % (Manual) Lymphocytes % (Manual) Monocytes % (Manual) Basophils % (Manual) Nucleated RBC % Seg Neutrophils # Seg Neutrophils # Man Lymphocytes # (Manual) Monocytes # (Manual) Eosinophils # (Manual) Basophils # (Manual) PT INR APTT Heparin Anti-Xa Level 0.94 H POC ABG pH POC ABG pCO2 POC ABG pO2 Sodium Potassium Chloride Carbon Dioxide BUN Creatinine Glucose POC Glucose 131 H Calcium Phosphorus Magnesium AST Alkaline Phosphatase Troponin T C-Reactive Protein Total Protein Albumin Triglycerides HDL Cholesterol Lipase Vitamin B12 TSH Urine WBC (Auto) Urine Chloride Urine Total Protein Vancomycin Trough Crossmatch 11/06/16 11/06/16 11/06/16 05:00 11:45 18:23 WBC RBC Hgb Hct MCV RDW Plt Count Lymph % (Auto) [place] % (Auto) [place] # Seg Neutrophils % Seg Neuts % (Manual) Lymphocytes % (Manual) Monocytes % (Manual) Basophils % (Manual) Nucleated RBC % Seg Neutrophils # Seg Neutrophils # Man Lymphocytes # (Manual) Monocytes # (Manual) Eosinophils # (Manual) Basophils # (Manual) PT INR APTT Heparin Anti-Xa Level POC ABG pH POC ABG pCO2 POC ABG pO2 Sodium Potassium 3.5 L Chloride 107.1 H Carbon Dioxide 20 L BUN 4 L Creatinine 0.6 L Glucose 104 H POC Glucose 141 H 255 H Calcium 6.7 L Phosphorus Magnesium AST Alkaline Phosphatase Troponin T C-Reactive Protein Total Protein Albumin Triglycerides HDL Cholesterol Lipase Vitamin B12 TSH Urine WBC (Auto) Urine Chloride Urine Total Protein Vancomycin Trough Crossmatch 11/06/16 11/06/16 11/07/16 22:07 23:07 11:41 WBC RBC Hgb Hct MCV RDW Plt Count Lymph % (Auto) [place] % (Auto) [place] # Seg Neutrophils % Seg Neuts % (Manual) Lymphocytes % (Manual) Monocytes % (Manual) Basophils % (Manual) Nucleated RBC % Seg Neutrophils # Seg Neutrophils # Man Lymphocytes # (Manual) Monocytes # (Manual) Eosinophils # (Manual) Basophils # (Manual) PT INR APTT Heparin Anti-Xa Level 0.80 H POC ABG pH POC ABG pCO2 POC ABG pO2 Sodium Potassium Chloride Carbon Dioxide BUN Creatinine Glucose POC Glucose 183 H 132 H Calcium Phosphorus Magnesium AST Alkaline Phosphatase Troponin T C-Reactive Protein Total Protein Albumin Triglycerides HDL Cholesterol Lipase Vitamin B12 TSH Urine WBC (Auto) Urine Chloride Urine Total Protein Vancomycin Trough Crossmatch 11/07/16 11/07/16 11/07/16 12:17 17:05 17:58 WBC RBC Hgb Hct MCV RDW Plt Count Lymph % (Auto) [place] % (Auto) [place] # Seg Neutrophils % Seg Neuts % (Manual) Lymphocytes % (Manual) Monocytes % (Manual) Basophils % (Manual) Nucleated RBC % Seg Neutrophils # Seg Neutrophils # Man Lymphocytes # (Manual) Monocytes # (Manual) Eosinophils # (Manual) Basophils # (Manual) PT INR APTT Heparin Anti-Xa Level 0.87 H POC ABG pH 7.324 L POC ABG pCO2 POC ABG pO2 Sodium Potassium Chloride Carbon Dioxide BUN Creatinine Glucose POC Glucose 158 H Calcium Phosphorus Magnesium AST Alkaline Phosphatase Troponin T C-Reactive Protein Total Protein Albumin Triglycerides HDL Cholesterol Lipase Vitamin B12 TSH Urine WBC (Auto) Urine Chloride Urine Total Protein Vancomycin Trough Crossmatch 11/07/16 11/07/16 11/07/16 23:26 Unknown Unknown WBC 12.3 H RBC 2.96 L Hgb 9.1 L Hct 27.9 L MCV RDW 16.8 H Plt Count Lymph % (Auto) [place] % (Auto) [place] # Seg Neutrophils % Seg Neuts % (Manual) 80.0 H Lymphocytes % (Manual) 7.0 L Monocytes % (Manual) Basophils % (Manual) Nucleated RBC % Seg Neutrophils # Seg Neutrophils # Man 9.8 H Lymphocytes # (Manual) 0.9 L Monocytes # (Manual) Eosinophils # (Manual) Basophils # (Manual) PT INR APTT Heparin Anti-Xa Level POC ABG pH POC ABG pCO2 POC ABG pO2 Sodium Potassium Chloride Carbon Dioxide 19 L BUN Creatinine Glucose 106 H POC Glucose 130 H Calcium 6.9 L Phosphorus Magnesium AST Alkaline Phosphatase Troponin T C-Reactive Protein Total Protein Albumin Triglycerides HDL Cholesterol Lipase Vitamin B12 TSH Urine WBC (Auto) Urine Chloride Urine Total Protein Vancomycin Trough Crossmatch 11/07/16 11/08/16 11/08/16 Unknown 05:14 05:20 WBC 12.4 H RBC 3.04 L Hgb 9.2 L Hct 28.8 L MCV RDW 16.6 H Plt Count Lymph % (Auto) [place] % (Auto) [place] # Seg Neutrophils % Seg Neuts % (Manual) 77.0 H Lymphocytes % (Manual) 5.0 L Monocytes % (Manual) Basophils % (Manual) 2.0 H Nucleated RBC % Seg Neutrophils # Seg Neutrophils # Man 9.5 H Lymphocytes # (Manual) 0.6 L Monocytes # (Manual) Eosinophils # (Manual) Basophils # (Manual) 0.2 H PT INR APTT Heparin Anti-Xa Level 0.90 H POC ABG pH POC ABG pCO2 POC ABG pO2 Sodium Potassium Chloride Carbon Dioxide BUN Creatinine Glucose POC Glucose 204 H Calcium Phosphorus Magnesium AST Alkaline Phosphatase Troponin T C-Reactive Protein Total Protein Albumin Triglycerides HDL Cholesterol Lipase Vitamin B12 TSH Urine WBC (Auto) Urine Chloride Urine Total Protein Vancomycin Trough Crossmatch 11/08/16 11/08/16 11/08/16 05:20 12:10 13:10 WBC RBC Hgb Hct MCV RDW Plt Count Lymph % (Auto) [place] % (Auto) [place] # Seg Neutrophils % Seg Neuts % (Manual) Lymphocytes % (Manual) Monocytes % (Manual) Basophils % (Manual) Nucleated RBC % Seg Neutrophils # Seg Neutrophils # Man Lymphocytes # (Manual) Monocytes # (Manual) Eosinophils # (Manual) Basophils # (Manual) PT INR APTT Heparin Anti-Xa Level POC ABG pH POC ABG pCO2 33.7 L POC ABG pO2 Sodium 136 L Potassium Chloride Carbon Dioxide 19 L BUN Creatinine Glucose 192 H POC Glucose 180 H Calcium 7.1 L Phosphorus Magnesium AST Alkaline Phosphatase Troponin T C-Reactive Protein Total Protein Albumin Triglycerides HDL Cholesterol Lipase Vitamin B12 TSH Urine WBC (Auto) Urine Chloride Urine Total Protein Vancomycin Trough Crossmatch 11/08/16 11/08/16 11/08/16 17:26 20:45 23:34 WBC RBC Hgb Hct MCV RDW Plt Count Lymph % (Auto) [place] % (Auto) [place] # Seg Neutrophils % Seg Neuts % (Manual) Lymphocytes % (Manual) Monocytes % (Manual) Basophils % (Manual) Nucleated RBC % Seg Neutrophils # Seg Neutrophils # Man Lymphocytes # (Manual) Monocytes # (Manual) Eosinophils # (Manual) Basophils # (Manual) PT INR APTT Heparin Anti-Xa Level POC ABG pH POC ABG pCO2 POC ABG pO2 Sodium Potassium Chloride Carbon Dioxide BUN Creatinine Glucose POC Glucose 187 H 178 H Calcium Phosphorus Magnesium AST Alkaline Phosphatase Troponin T C-Reactive Protein Total Protein Albumin Triglycerides HDL Cholesterol Lipase Vitamin B12 TSH Urine WBC (Auto) Urine Chloride Urine Total Protein Vancomycin Trough 35.4 H Crossmatch 11/09/16 11/09/16 11/09/16 05:30 05:30 05:59 WBC 11.5 H RBC 2.96 L Hgb 9.2 L Hct 28.2 L MCV RDW 16.4 H Plt Count Lymph % (Auto) [place] % (Auto) [place] # Seg Neutrophils % Seg Neuts % (Manual) 76.0 H Lymphocytes % (Manual) 2.0 L Monocytes % (Manual) Basophils % (Manual) Nucleated RBC % Seg Neutrophils # Seg Neutrophils # Man 8.7 H Lymphocytes # (Manual) 0.2 L Monocytes # (Manual) Eosinophils # (Manual) Basophils # (Manual) PT INR APTT Heparin Anti-Xa Level POC ABG pH POC ABG pCO2 POC ABG pO2 Sodium Potassium 3.4 L Chloride 107.6 H Carbon Dioxide 19 L BUN Creatinine 0.6 L Glucose 207 H POC Glucose 263 H Calcium 7.3 L Phosphorus Magnesium AST Alkaline Phosphatase Troponin T C-Reactive Protein Total Protein Albumin Triglycerides HDL Cholesterol Lipase Vitamin B12 TSH Urine WBC (Auto) Urine Chloride Urine Total Protein Vancomycin Trough Crossmatch 11/09/16 11/09/16 11/09/16 11:49 15:24 18:04 WBC RBC Hgb Hct MCV RDW Plt Count Lymph % (Auto) [place] % (Auto) [place] # Seg Neutrophils % Seg Neuts % (Manual) Lymphocytes % (Manual) Monocytes % (Manual) Basophils % (Manual) Nucleated RBC % Seg Neutrophils # Seg Neutrophils # Man Lymphocytes # (Manual) Monocytes # (Manual) Eosinophils # (Manual) Basophils # (Manual) PT INR APTT Heparin Anti-Xa Level POC ABG pH POC ABG pCO2 33.8 L POC ABG pO2 131 H Sodium Potassium Chloride Carbon Dioxide BUN Creatinine Glucose POC Glucose 269 H 242 H Calcium Phosphorus Magnesium AST Alkaline Phosphatase Troponin T C-Reactive Protein Total Protein Albumin Triglycerides HDL Cholesterol Lipase Vitamin B12 TSH Urine WBC (Auto) Urine Chloride Urine Total Protein Vancomycin Trough Crossmatch 11/09/16 11/10/16 11/10/16 22:57 04:30 04:30 WBC 15.7 H RBC 3.17 L Hgb 9.7 L Hct 30.2 L MCV RDW 16.2 H Plt Count Lymph % (Auto) [place] % (Auto) [place] # Seg Neutrophils % Seg Neuts % (Manual) Lymphocytes % (Manual) Monocytes % (Manual) Basophils % (Manual) Nucleated RBC % Seg Neutrophils # Seg Neutrophils # Man 8.5 H Lymphocytes # (Manual) Monocytes # (Manual) Eosinophils # (Manual) 0.5 H Basophils # (Manual) PT INR APTT Heparin Anti-Xa Level POC ABG pH POC ABG pCO2 POC ABG pO2 Sodium Potassium Chloride Carbon Dioxide 19 L BUN Creatinine 0.6 L Glucose 199 H POC Glucose 239 H Calcium 7.8 L Phosphorus Magnesium AST Alkaline Phosphatase Troponin T C-Reactive Protein Total Protein Albumin Triglycerides HDL Cholesterol Lipase Vitamin B12 TSH Urine WBC (Auto) Urine Chloride Urine Total Protein Vancomycin Trough Crossmatch 11/10/16 11/10/16 11/10/16 04:30 11:32 16:00 WBC RBC Hgb Hct MCV RDW Plt Count Lymph % (Auto) [place] % (Auto) [place] # Seg Neutrophils % Seg Neuts % (Manual) Lymphocytes % (Manual) Monocytes % (Manual) Basophils % (Manual) Nucleated RBC % Seg Neutrophils # Seg Neutrophils # Man Lymphocytes # (Manual) Monocytes # (Manual) Eosinophils # (Manual) Basophils # (Manual) PT INR APTT Heparin Anti-Xa Level 1.09 H < 0.10 L POC ABG pH POC ABG pCO2 POC ABG pO2 Sodium Potassium Chloride Carbon Dioxide BUN Creatinine Glucose POC Glucose 211 H Calcium Phosphorus Magnesium AST Alkaline Phosphatase Troponin T C-Reactive Protein Total Protein Albumin Triglycerides HDL Cholesterol Lipase Vitamin B12 TSH Urine WBC (Auto) Urine Chloride Urine Total Protein Vancomycin Trough Crossmatch 11/10/16 11/10/16 11/10/16 17:39 18:00 23:06 WBC RBC Hgb Hct MCV RDW Plt Count Lymph % (Auto) [place] % (Auto) [place] # Seg Neutrophils % Seg Neuts % (Manual) Lymphocytes % (Manual) Monocytes % (Manual) Basophils % (Manual) Nucleated RBC % Seg Neutrophils # Seg Neutrophils # Man Lymphocytes # (Manual) Monocytes # (Manual) Eosinophils # (Manual) Basophils # (Manual) PT INR APTT Heparin Anti-Xa Level 0.85 H POC ABG pH POC ABG pCO2 POC ABG pO2 Sodium Potassium Chloride Carbon Dioxide BUN Creatinine Glucose POC Glucose 249 H 220 H Calcium Phosphorus Magnesium AST Alkaline Phosphatase Troponin T C-Reactive Protein Total Protein Albumin Triglycerides HDL Cholesterol Lipase Vitamin B12 TSH Urine WBC (Auto) Urine Chloride Urine Total Protein Vancomycin Trough Crossmatch 11/11/16 11/11/16 11/11/16 05:56 06:15 06:15 WBC 13.3 H RBC 2.87 L Hgb 8.7 L Hct 27.2 L MCV RDW 16.4 H Plt Count Lymph % (Auto) [place] % (Auto) [place] # 0.9 H Seg Neutrophils % 78.9 H Seg Neuts % (Manual) Lymphocytes % (Manual) Monocytes % (Manual) Basophils % (Manual) Nucleated RBC % Seg Neutrophils # 10.5 H Seg Neutrophils # Man Lymphocytes # (Manual) Monocytes # (Manual) Eosinophils # (Manual) Basophils # (Manual) PT INR APTT Heparin Anti-Xa Level POC ABG pH POC ABG pCO2 POC ABG pO2 Sodium Potassium 3.2 L Chloride Carbon Dioxide 19 L BUN Creatinine Glucose POC Glucose 117 H Calcium 7.6 L Phosphorus Magnesium AST Alkaline Phosphatase Troponin T C-Reactive Protein Total Protein Albumin Triglycerides HDL Cholesterol Lipase Vitamin B12 TSH Urine WBC (Auto) Urine Chloride Urine Total Protein Vancomycin Trough Crossmatch 11/11/16 11/11/16 11/11/16 12:26 16:58 17:33 WBC RBC Hgb Hct MCV RDW Plt Count Lymph % (Auto) [place] % (Auto) [place] # Seg Neutrophils % Seg Neuts % (Manual) Lymphocytes % (Manual) Monocytes % (Manual) Basophils % (Manual) Nucleated RBC % Seg Neutrophils # Seg Neutrophils # Man Lymphocytes # (Manual) Monocytes # (Manual) Eosinophils # (Manual) Basophils # (Manual) PT INR APTT Heparin Anti-Xa Level < 0.10 L POC ABG pH POC ABG pCO2 POC ABG pO2 Sodium Potassium Chloride Carbon Dioxide BUN Creatinine Glucose POC Glucose 114 H 161 H Calcium Phosphorus Magnesium AST Alkaline Phosphatase Troponin T C-Reactive Protein Total Protein Albumin Triglycerides HDL Cholesterol Lipase Vitamin B12 TSH Urine WBC (Auto) Urine Chloride Urine Total Protein Vancomycin Trough Crossmatch 11/12/16 11/12/16 11/12/16 05:00 05:00 05:00 WBC 12.8 H RBC 2.75 L Hgb 8.4 L Hct 25.7 L MCV RDW 16.3 H Plt Count Lymph % (Auto) [place] % (Auto) 7.5 H [place] # 1.0 H Seg Neutrophils % 78.0 H Seg Neuts % (Manual) Lymphocytes % (Manual) Monocytes % (Manual) Basophils % (Manual) Nucleated RBC % Seg Neutrophils # 10.0 H Seg Neutrophils # Man Lymphocytes # (Manual) Monocytes # (Manual) Eosinophils # (Manual) Basophils # (Manual) PT INR APTT Heparin Anti-Xa Level 0.87 H POC ABG pH POC ABG pCO2 POC ABG pO2 Sodium Potassium 3.4 L Chloride Carbon Dioxide 19 L BUN Creatinine Glucose 112 H POC Glucose Calcium 7.7 L Phosphorus Magnesium AST Alkaline Phosphatase Troponin T C-Reactive Protein Total Protein Albumin Triglycerides HDL Cholesterol Lipase Vitamin B12 TSH Urine WBC (Auto) Urine Chloride Urine Total Protein Vancomycin Trough Crossmatch 11/12/16 11/12/16 11/13/16 11:18 16:40 00:44 WBC RBC Hgb Hct MCV RDW Plt Count Lymph % (Auto) [place] % (Auto) [place] # Seg Neutrophils % Seg Neuts % (Manual) Lymphocytes % (Manual) Monocytes % (Manual) Basophils % (Manual) Nucleated RBC % Seg Neutrophils # Seg Neutrophils # Man Lymphocytes # (Manual) Monocytes # (Manual) Eosinophils # (Manual) Basophils # (Manual) PT INR APTT Heparin Anti-Xa Level POC ABG pH POC ABG pCO2 POC ABG pO2 Sodium Potassium Chloride Carbon Dioxide BUN Creatinine Glucose POC Glucose 135 H 139 H 169 H Calcium Phosphorus Magnesium AST Alkaline Phosphatase Troponin T C-Reactive Protein Total Protein Albumin Triglycerides HDL Cholesterol Lipase Vitamin B12 TSH Urine WBC (Auto) Urine Chloride Urine Total Protein Vancomycin Trough Crossmatch 11/13/16 11/13/16 11/13/16 05:28 05:28 06:02 WBC 12.7 H RBC 2.93 L Hgb 9.0 L Hct 27.6 L MCV RDW 16.1 H Plt Count Lymph % (Auto) [place] % (Auto) [place] # Seg Neutrophils % 78.6 H Seg Neuts % (Manual) Lymphocytes % (Manual) Monocytes % (Manual) Basophils % (Manual) Nucleated RBC % Seg Neutrophils # 10.0 H Seg Neutrophils # Man Lymphocytes # (Manual) Monocytes # (Manual) Eosinophils # (Manual) Basophils # (Manual) PT INR APTT Heparin Anti-Xa Level POC ABG pH POC ABG pCO2 POC ABG pO2 Sodium Potassium Chloride Carbon Dioxide 17 L BUN Creatinine Glucose 116 H POC Glucose 112 H Calcium 7.8 L Phosphorus Magnesium AST Alkaline Phosphatase Troponin T C-Reactive Protein Total Protein Albumin Triglycerides HDL Cholesterol Lipase Vitamin B12 TSH Urine WBC (Auto) Urine Chloride Urine Total Protein Vancomycin Trough Crossmatch 11/13/16 11/13/16 11/13/16 12:34 16:55 17:00 WBC RBC Hgb Hct MCV RDW Plt Count Lymph % (Auto) [place] % (Auto) [place] # Seg Neutrophils % Seg Neuts % (Manual) Lymphocytes % (Manual) Monocytes % (Manual) Basophils % (Manual) Nucleated RBC % Seg Neutrophils # Seg Neutrophils # Man Lymphocytes # (Manual) Monocytes # (Manual) Eosinophils # (Manual) Basophils # (Manual) PT INR APTT Heparin Anti-Xa Level POC ABG pH POC ABG pCO2 22.9 L POC ABG pO2 53 L Sodium Potassium Chloride Carbon Dioxide BUN Creatinine Glucose POC Glucose 109 H 122 H Calcium Phosphorus Magnesium AST Alkaline Phosphatase Troponin T C-Reactive Protein Total Protein Albumin Triglycerides HDL Cholesterol Lipase Vitamin B12 TSH Urine WBC (Auto) Urine Chloride Urine Total Protein Vancomycin Trough Crossmatch 11/13/16 11/14/16 11/14/16 23:33 04:42 04:42 WBC 11.7 H RBC 3.01 L Hgb 9.3 L Hct 28.9 L MCV RDW 16.5 H Plt Count Lymph % (Auto) [place] % (Auto) [place] # Seg Neutrophils % Seg Neuts % (Manual) 79.0 H Lymphocytes % (Manual) 10.0 L Monocytes % (Manual) Basophils % (Manual) Nucleated RBC % Seg Neutrophils # Seg Neutrophils # Man 9.2 H Lymphocytes # (Manual) Monocytes # (Manual) Eosinophils # (Manual) Basophils # (Manual) PT INR APTT Heparin Anti-Xa Level POC ABG pH POC ABG pCO2 POC ABG pO2 Sodium Potassium Chloride Carbon Dioxide 16 L BUN Creatinine Glucose 102 H POC Glucose 173 H Calcium 7.5 L Phosphorus Magnesium AST Alkaline Phosphatase Troponin T C-Reactive Protein Total Protein Albumin Triglycerides HDL Cholesterol Lipase Vitamin B12 TSH Urine WBC (Auto) Urine Chloride Urine Total Protein Vancomycin Trough Crossmatch 11/14/16 11/14/16 11/14/16 11:43 16:57 19:45 WBC RBC Hgb Hct MCV RDW Plt Count Lymph % (Auto) [place] % (Auto) [place] # Seg Neutrophils % Seg Neuts % (Manual) Lymphocytes % (Manual) Monocytes % (Manual) Basophils % (Manual) Nucleated RBC % Seg Neutrophils # Seg Neutrophils # Man Lymphocytes # (Manual) Monocytes # (Manual) Eosinophils # (Manual) Basophils # (Manual) PT INR APTT Heparin Anti-Xa Level 0.71 H POC ABG pH POC ABG pCO2 POC ABG pO2 Sodium Potassium Chloride Carbon Dioxide BUN Creatinine Glucose POC Glucose 130 H 209 H Calcium Phosphorus Magnesium AST Alkaline Phosphatase Troponin T C-Reactive Protein Total Protein Albumin Triglycerides HDL Cholesterol Lipase Vitamin B12 TSH Urine WBC (Auto) Urine Chloride Urine Total Protein Vancomycin Trough Crossmatch 11/14/16 11/15/16 11/16/16 23:43 23:47 06:11 WBC RBC Hgb Hct MCV RDW Plt Count Lymph % (Auto) [place] % (Auto) [place] # Seg Neutrophils % Seg Neuts % (Manual) Lymphocytes % (Manual) Monocytes % (Manual) Basophils % (Manual) Nucleated RBC % Seg Neutrophils # Seg Neutrophils # Man Lymphocytes # (Manual) Monocytes # (Manual) Eosinophils # (Manual) Basophils # (Manual) PT INR APTT Heparin Anti-Xa Level POC ABG pH POC ABG pCO2 POC ABG pO2 Sodium Potassium Chloride Carbon Dioxide BUN Creatinine Glucose POC Glucose 167 H 114 H 125 H Calcium Phosphorus Magnesium AST Alkaline Phosphatase Troponin T C-Reactive Protein Total Protein Albumin Triglycerides HDL Cholesterol Lipase Vitamin B12 TSH Urine WBC (Auto) Urine Chloride Urine Total Protein Vancomycin Trough Crossmatch 11/16/16 11/16/16 11/16/16 09:05 09:05 09:05 WBC RBC 2.53 L Hgb 8.0 L Hct 23.7 L MCV RDW 15.9 H Plt Count Lymph % (Auto) [place] % (Auto) [place] # Seg Neutrophils % Seg Neuts % (Manual) Lymphocytes % (Manual) Monocytes % (Manual) Basophils % (Manual) Nucleated RBC % Seg Neutrophils # Seg Neutrophils # Man Lymphocytes # (Manual) Monocytes # (Manual) Eosinophils # (Manual) Basophils # (Manual) PT INR APTT Heparin Anti-Xa Level POC ABG pH POC ABG pCO2 POC ABG pO2 Sodium Potassium 2.5 L* D Chloride Carbon Dioxide 19 L BUN 5 L Creatinine Glucose 103 H POC Glucose Calcium 6.6 L Phosphorus Magnesium 1.3 L AST Alkaline Phosphatase Troponin T C-Reactive Protein Total Protein Albumin Triglycerides HDL Cholesterol Lipase Vitamin B12 TSH Urine WBC (Auto) Urine Chloride Urine Total Protein Vancomycin Trough Crossmatch 11/16/16 11/16/16 11/16/16 12:15 13:00 14:45 WBC RBC Hgb Hct MCV RDW Plt Count Lymph % (Auto) [place] % (Auto) [place] # Seg Neutrophils % Seg Neuts % (Manual) Lymphocytes % (Manual) Monocytes % (Manual) Basophils % (Manual) Nucleated RBC % Seg Neutrophils # Seg Neutrophils # Man Lymphocytes # (Manual) Monocytes # (Manual) Eosinophils # (Manual) Basophils # (Manual) PT 19.1 H INR 1.61 H APTT Heparin Anti-Xa Level POC ABG pH 7.479 H POC ABG pCO2 23.6 L POC ABG pO2 Sodium Potassium Chloride Carbon Dioxide BUN Creatinine Glucose POC Glucose 129 H Calcium Phosphorus Magnesium AST Alkaline Phosphatase Troponin T C-Reactive Protein Total Protein Albumin Triglycerides HDL Cholesterol Lipase Vitamin B12 TSH Urine WBC (Auto) Urine Chloride Urine Total Protein Vancomycin Trough Crossmatch 11/16/16 11/17/16 11/17/16 17:43 00:30 04:32 WBC RBC Hgb Hct MCV RDW Plt Count Lymph % (Auto) [place] % (Auto) [place] # Seg Neutrophils % Seg Neuts % (Manual) Lymphocytes % (Manual) Monocytes % (Manual) Basophils % (Manual) Nucleated RBC % Seg Neutrophils # Seg Neutrophils # Man Lymphocytes # (Manual) Monocytes # (Manual) Eosinophils # (Manual) Basophils # (Manual) PT INR APTT Heparin Anti-Xa Level POC ABG pH POC ABG pCO2 POC ABG pO2 Sodium Potassium Chloride Carbon Dioxide 18 L BUN Creatinine Glucose 127 H POC Glucose 224 H 259 H Calcium 7.5 L Phosphorus Magnesium AST Alkaline Phosphatase Troponin T C-Reactive Protein Total Protein Albumin Triglycerides HDL Cholesterol Lipase Vitamin B12 TSH Urine WBC (Auto) Urine Chloride Urine Total Protein Vancomycin Trough Crossmatch 11/17/16 11/17/16 11/17/16 05:42 08:34 12:19 WBC RBC 2.85 L Hgb 8.9 L Hct 26.5 L MCV RDW 16.2 H Plt Count Lymph % (Auto) [place] % (Auto) [place] # Seg Neutrophils % Seg Neuts % (Manual) Lymphocytes % (Manual) Monocytes % (Manual) Basophils % (Manual) Nucleated RBC % Seg Neutrophils # Seg Neutrophils # Man Lymphocytes # (Manual) Monocytes # (Manual) Eosinophils # (Manual) Basophils # (Manual) PT INR APTT Heparin Anti-Xa Level POC ABG pH POC ABG pCO2 POC ABG pO2 Sodium Potassium Chloride Carbon Dioxide BUN Creatinine Glucose POC Glucose 118 H 264 H Calcium Phosphorus Magnesium AST Alkaline Phosphatase Troponin T C-Reactive Protein Total Protein Albumin Triglycerides HDL Cholesterol Lipase Vitamin B12 TSH Urine WBC (Auto) Urine Chloride Urine Total Protein Vancomycin Trough Crossmatch 11/17/16 11/17/16 11/18/16 16:52 23:44 04:53 WBC RBC Hgb Hct MCV RDW Plt Count Lymph % (Auto) [place] % (Auto) [place] # Seg Neutrophils % Seg Neuts % (Manual) Lymphocytes % (Manual) Monocytes % (Manual) Basophils % (Manual) Nucleated RBC % Seg Neutrophils # Seg Neutrophils # Man Lymphocytes # (Manual) Monocytes # (Manual) Eosinophils # (Manual) Basophils # (Manual) PT INR APTT Heparin Anti-Xa Level POC ABG pH POC ABG pCO2 POC ABG pO2 Sodium Potassium Chloride Carbon Dioxide BUN Creatinine Glucose POC Glucose 256 H 109 H 287 H Calcium Phosphorus Magnesium AST Alkaline Phosphatase Troponin T C-Reactive Protein Total Protein Albumin Triglycerides HDL Cholesterol Lipase Vitamin B12 TSH Urine WBC (Auto) Urine Chloride Urine Total Protein Vancomycin Trough Crossmatch 11/18/16 11/18/16 11/18/16 05:31 05:45 05:45 WBC RBC Hgb Hct MCV RDW Plt Count Lymph % (Auto) [place] % (Auto) [place] # Seg Neutrophils % Seg Neuts % (Manual) Lymphocytes % (Manual) Monocytes % (Manual) Basophils % (Manual) Nucleated RBC % Seg Neutrophils # Seg Neutrophils # Man Lymphocytes # (Manual) Monocytes # (Manual) Eosinophils # (Manual) Basophils # (Manual) PT 20.1 H INR 1.72 H APTT 131.1 H* Heparin Anti-Xa Level 0.18 L POC ABG pH 7.252 L POC ABG pCO2 32.0 L POC ABG pO2 Sodium Potassium Chloride 107.1 H Carbon Dioxide 17 L BUN Creatinine Glucose 284 H POC Glucose Calcium 7.2 L Phosphorus Magnesium AST Alkaline Phosphatase Troponin T C-Reactive Protein Total Protein 5.5 L Albumin 2.1 L Triglycerides HDL Cholesterol Lipase Vitamin B12 TSH Urine WBC (Auto) Urine Chloride Urine Total Protein Vancomycin Trough Crossmatch 11/18/16 11/18/16 11/18/16 05:45 09:17 12:06 WBC 13.3 H RBC 3.07 L Hgb 9.2 L Hct 29.5 L MCV RDW 16.9 H Plt Count Lymph % (Auto) 11.0 L [place] % (Auto) [place] # Seg Neutrophils % 82.9 H Seg Neuts % (Manual) Lymphocytes % (Manual) Monocytes % (Manual) Basophils % (Manual) Nucleated RBC % Seg Neutrophils # 11.0 H Seg Neutrophils # Man Lymphocytes # (Manual) Monocytes # (Manual) Eosinophils # (Manual) Basophils # (Manual) PT INR APTT Heparin Anti-Xa Level POC ABG pH POC ABG pCO2 24.3 L POC ABG pO2 79 L Sodium Potassium Chloride Carbon Dioxide BUN Creatinine Glucose POC Glucose 433 H Calcium Phosphorus Magnesium AST Alkaline Phosphatase Troponin T C-Reactive Protein Total Protein Albumin Triglycerides HDL Cholesterol Lipase Vitamin B12 TSH Urine WBC (Auto) Urine Chloride Urine Total Protein Vancomycin Trough Crossmatch 11/18/16 11/18/16 11/18/16 12:09 13:00 17:22 WBC 12.6 H RBC 2.79 L Hgb 8.6 L Hct 26.6 L MCV RDW 17.0 H Plt Count Lymph % (Auto) [place] % (Auto) [place] # Seg Neutrophils % Seg Neuts % (Manual) 90.0 H Lymphocytes % (Manual) 8.0 L Monocytes % (Manual) Basophils % (Manual) Nucleated RBC % Seg Neutrophils # Seg Neutrophils # Man 11.3 H Lymphocytes # (Manual) 1.0 L Monocytes # (Manual) Eosinophils # (Manual) Basophils # (Manual) PT INR APTT Heparin Anti-Xa Level POC ABG pH POC ABG pCO2 POC ABG pO2 Sodium Potassium Chloride Carbon Dioxide BUN Creatinine Glucose POC Glucose 429 H 297 H Calcium Phosphorus Magnesium AST Alkaline Phosphatase Troponin T C-Reactive Protein Total Protein Albumin Triglycerides HDL Cholesterol Lipase Vitamin B12 TSH Urine WBC (Auto) Urine Chloride Urine Total Protein Vancomycin Trough Crossmatch 11/18/16 11/19/16 11/19/16 23:27 04:30 04:30 WBC RBC 2.92 L Hgb 8.8 L Hct 27.0 L MCV RDW 16.6 H Plt Count Lymph % (Auto) [place] % (Auto) [place] # Seg Neutrophils % Seg Neuts % (Manual) Lymphocytes % (Manual) Monocytes % (Manual) Basophils % (Manual) Nucleated RBC % Seg Neutrophils # Seg Neutrophils # Man Lymphocytes # (Manual) Monocytes # (Manual) Eosinophils # (Manual) Basophils # (Manual) PT INR APTT Heparin Anti-Xa Level POC ABG pH POC ABG pCO2 POC ABG pO2 Sodium Potassium 3.0 L Chloride 107.9 H Carbon Dioxide 20 L BUN Creatinine Glucose 231 H POC Glucose 268 H Calcium 7.1 L Phosphorus Magnesium AST Alkaline Phosphatase Troponin T C-Reactive Protein Total Protein 5.5 L Albumin 2.1 L Triglycerides HDL Cholesterol Lipase Vitamin B12 TSH Urine WBC (Auto) Urine Chloride Urine Total Protein Vancomycin Trough Crossmatch 11/19/16 11/19/16 11/19/16 04:40 06:40 10:00 WBC RBC Hgb Hct MCV RDW Plt Count Lymph % (Auto) [place] % (Auto) [place] # Seg Neutrophils % Seg Neuts % (Manual) Lymphocytes % (Manual) Monocytes % (Manual) Basophils % (Manual) Nucleated RBC % Seg Neutrophils # Seg Neutrophils # Man Lymphocytes # (Manual) Monocytes # (Manual) Eosinophils # (Manual) Basophils # (Manual) PT INR APTT Heparin Anti-Xa Level POC ABG pH POC ABG pCO2 POC ABG pO2 Sodium Potassium Chloride Carbon Dioxide BUN Creatinine Glucose POC Glucose 267 H 244 H Calcium Phosphorus Magnesium 1.4 L AST Alkaline Phosphatase Troponin T C-Reactive Protein Total Protein Albumin Triglycerides HDL Cholesterol Lipase Vitamin B12 TSH Urine WBC (Auto) Urine Chloride Urine Total Protein Vancomycin Trough Crossmatch 11/19/16 11/19/16 11/19/16 12:08 18:10 23:40 WBC RBC Hgb Hct MCV RDW Plt Count Lymph % (Auto) [place] % (Auto) [place] # Seg Neutrophils % Seg Neuts % (Manual) Lymphocytes % (Manual) Monocytes % (Manual) Basophils % (Manual) Nucleated RBC % Seg Neutrophils # Seg Neutrophils # Man Lymphocytes # (Manual) Monocytes # (Manual) Eosinophils # (Manual) Basophils # (Manual) PT INR APTT Heparin Anti-Xa Level POC ABG pH POC ABG pCO2 POC ABG pO2 Sodium Potassium Chloride Carbon Dioxide BUN Creatinine Glucose POC Glucose 254 H 265 H 197 H Calcium Phosphorus Magnesium AST Alkaline Phosphatase Troponin T C-Reactive Protein Total Protein Albumin Triglycerides HDL Cholesterol Lipase Vitamin B12 TSH Urine WBC (Auto) Urine Chloride Urine Total Protein Vancomycin Trough Crossmatch 11/20/16 11/20/16 11/20/16 05:00 05:44 11:33 WBC RBC Hgb Hct MCV RDW Plt Count Lymph % (Auto) [place] % (Auto) [place] # Seg Neutrophils % Seg Neuts % (Manual) Lymphocytes % (Manual) Monocytes % (Manual) Basophils % (Manual) Nucleated RBC % Seg Neutrophils # Seg Neutrophils # Man Lymphocytes # (Manual) Monocytes # (Manual) Eosinophils # (Manual) Basophils # (Manual) PT INR APTT Heparin Anti-Xa Level POC ABG pH POC ABG pCO2 POC ABG pO2 Sodium Potassium 3.4 L Chloride 107.4 H Carbon Dioxide 20 L BUN Creatinine Glucose 140 H POC Glucose 163 H 108 H Calcium 7.2 L Phosphorus Magnesium AST Alkaline Phosphatase Troponin T C-Reactive Protein Total Protein Albumin Triglycerides HDL Cholesterol Lipase Vitamin B12 TSH Urine WBC (Auto) Urine Chloride Urine Total Protein Vancomycin Trough Crossmatch 11/20/16 11/20/16 11/20/16 13:03 16:45 23:26 WBC RBC Hgb Hct MCV RDW Plt Count Lymph % (Auto) [place] % (Auto) [place] # Seg Neutrophils % Seg Neuts % (Manual) Lymphocytes % (Manual) Monocytes % (Manual) Basophils % (Manual) Nucleated RBC % Seg Neutrophils # Seg Neutrophils # Man Lymphocytes # (Manual) Monocytes # (Manual) Eosinophils # (Manual) Basophils # (Manual) PT INR APTT Heparin Anti-Xa Level POC ABG pH POC ABG pCO2 POC ABG pO2 Sodium Potassium Chloride Carbon Dioxide BUN Creatinine Glucose POC Glucose 113 H 168 H Calcium Phosphorus Magnesium AST Alkaline Phosphatase Troponin T C-Reactive Protein Total Protein Albumin Triglycerides HDL Cholesterol Lipase Vitamin B12 TSH Urine WBC (Auto) Urine Chloride Urine Total Protein Vancomycin Trough 45.8 H Crossmatch 11/21/16 11/21/16 11/21/16 05:00 05:27 09:50 WBC RBC Hgb Hct MCV RDW Plt Count Lymph % (Auto) [place] % (Auto) [place] # Seg Neutrophils % Seg Neuts % (Manual) Lymphocytes % (Manual) Monocytes % (Manual) Basophils % (Manual) Nucleated RBC % Seg Neutrophils # Seg Neutrophils # Man Lymphocytes # (Manual) Monocytes # (Manual) Eosinophils # (Manual) Basophils # (Manual) PT INR APTT Heparin Anti-Xa Level POC ABG pH POC ABG pCO2 POC ABG pO2 Sodium 133 L D Potassium Chloride Carbon Dioxide 19 L BUN Creatinine Glucose 280 H POC Glucose 222 H Calcium 7.4 L Phosphorus Magnesium AST Alkaline Phosphatase Troponin T C-Reactive Protein Total Protein Albumin Triglycerides HDL Cholesterol Lipase Vitamin B12 TSH Urine WBC (Auto) Urine Chloride Urine Total Protein Vancomycin Trough 30.4 H Crossmatch 11/21/16 11/21/16 11/21/16 12:36 17:17 18:34 WBC RBC Hgb Hct MCV RDW Plt Count Lymph % (Auto) [place] % (Auto) [place] # Seg Neutrophils % Seg Neuts % (Manual) Lymphocytes % (Manual) Monocytes % (Manual) Basophils % (Manual) Nucleated RBC % Seg Neutrophils # Seg Neutrophils # Man Lymphocytes # (Manual) Monocytes # (Manual) Eosinophils # (Manual) Basophils # (Manual) PT INR APTT Heparin Anti-Xa Level POC ABG pH POC ABG pCO2 POC ABG pO2 Sodium Potassium Chloride Carbon Dioxide BUN Creatinine Glucose POC Glucose 306 H 339 H 318 H Calcium Phosphorus Magnesium AST Alkaline Phosphatase Troponin T C-Reactive Protein Total Protein Albumin Triglycerides HDL Cholesterol Lipase Vitamin B12 TSH Urine WBC (Auto) Urine Chloride Urine Total Protein Vancomycin Trough Crossmatch 11/21/16 11/22/16 11/22/16 23:16 07:19 11:49 WBC 11.1 H RBC 2.60 L Hgb 7.8 L Hct 24.4 L MCV RDW 16.3 H Plt Count Lymph % (Auto) [place] % (Auto) [place] # Seg Neutrophils % 76.8 H Seg Neuts % (Manual) Lymphocytes % (Manual) Monocytes % (Manual) Basophils % (Manual) Nucleated RBC % Seg Neutrophils # 8.5 H Seg Neutrophils # Man Lymphocytes # (Manual) Monocytes # (Manual) Eosinophils # (Manual) Basophils # (Manual) PT INR APTT Heparin Anti-Xa Level POC ABG pH POC ABG pCO2 POC ABG pO2 Sodium Potassium Chloride Carbon Dioxide BUN Creatinine Glucose POC Glucose 286 H 371 H Calcium Phosphorus Magnesium AST Alkaline Phosphatase Troponin T C-Reactive Protein Total Protein Albumin Triglycerides HDL Cholesterol Lipase Vitamin B12 TSH Urine WBC (Auto) Urine Chloride Urine Total Protein Vancomycin Trough Crossmatch 11/22/16 11/22/16 11/22/16 11:50 11:50 17:34 WBC RBC Hgb Hct MCV RDW Plt Count Lymph % (Auto) [place] % (Auto) [place] # Seg Neutrophils % Seg Neuts % (Manual) Lymphocytes % (Manual) Monocytes % (Manual) Basophils % (Manual) Nucleated RBC % Seg Neutrophils # Seg Neutrophils # Man Lymphocytes # (Manual) Monocytes # (Manual) Eosinophils # (Manual) Basophils # (Manual) PT INR APTT Heparin Anti-Xa Level POC ABG pH POC ABG pCO2 POC ABG pO2 Sodium 130 L Potassium Chloride Carbon Dioxide 19 L BUN 20 H Creatinine Glucose 266 H POC Glucose 262 H 284 H Calcium 7.2 L Phosphorus Magnesium AST Alkaline Phosphatase Troponin T C-Reactive Protein Total Protein Albumin Triglycerides HDL Cholesterol Lipase Vitamin B12 TSH Urine WBC (Auto) Urine Chloride Urine Total Protein Vancomycin Trough Crossmatch 11/22/16 11/22/16 11/22/16 17:43 20:04 23:38 WBC RBC Hgb Hct MCV RDW Plt Count Lymph % (Auto) [place] % (Auto) [place] # Seg Neutrophils % Seg Neuts % (Manual) Lymphocytes % (Manual) Monocytes % (Manual) Basophils % (Manual) Nucleated RBC % Seg Neutrophils # Seg Neutrophils # Man Lymphocytes # (Manual) Monocytes # (Manual) Eosinophils # (Manual) Basophils # (Manual) PT INR APTT Heparin Anti-Xa Level POC ABG pH 7.492 H POC ABG pCO2 23.2 L POC ABG pO2 60 L Sodium Potassium Chloride Carbon Dioxide BUN Creatinine Glucose POC Glucose 261 H 253 H Calcium Phosphorus Magnesium AST Alkaline Phosphatase Troponin T C-Reactive Protein Total Protein Albumin Triglycerides HDL Cholesterol Lipase Vitamin B12 TSH Urine WBC (Auto) Urine Chloride Urine Total Protein Vancomycin Trough Crossmatch 11/23/16 11/23/16 11/23/16 06:27 08:20 11:54 WBC RBC Hgb 8.2 L Hct 24.9 L MCV RDW Plt Count Lymph % (Auto) [place] % (Auto) [place] # Seg Neutrophils % Seg Neuts % (Manual) Lymphocytes % (Manual) Monocytes % (Manual) Basophils % (Manual) Nucleated RBC % Seg Neutrophils # Seg Neutrophils # Man Lymphocytes # (Manual) Monocytes # (Manual) Eosinophils # (Manual) Basophils # (Manual) PT INR APTT Heparin Anti-Xa Level POC ABG pH POC ABG pCO2 POC ABG pO2 Sodium Potassium Chloride Carbon Dioxide BUN Creatinine Glucose POC Glucose 333 H 286 H Calcium Phosphorus Magnesium AST Alkaline Phosphatase Troponin T C-Reactive Protein Total Protein Albumin Triglycerides HDL Cholesterol Lipase Vitamin B12 TSH Urine WBC (Auto) Urine Chloride Urine Total Protein Vancomycin Trough Crossmatch 11/23/16 11/23/16 11/24/16 17:53 23:51 00:12 WBC RBC Hgb Hct MCV RDW Plt Count Lymph % (Auto) [place] % (Auto) [place] # Seg Neutrophils % Seg Neuts % (Manual) Lymphocytes % (Manual) Monocytes % (Manual) Basophils % (Manual) Nucleated RBC % Seg Neutrophils # Seg Neutrophils # Man Lymphocytes # (Manual) Monocytes # (Manual) Eosinophils # (Manual) Basophils # (Manual) PT INR APTT Heparin Anti-Xa Level POC ABG pH POC ABG pCO2 POC ABG pO2 Sodium Potassium Chloride Carbon Dioxide BUN Creatinine Glucose POC Glucose 195 H 214 H 223 H Calcium Phosphorus Magnesium AST Alkaline Phosphatase Troponin T C-Reactive Protein Total Protein Albumin Triglycerides HDL Cholesterol Lipase Vitamin B12 TSH Urine WBC (Auto) Urine Chloride Urine Total Protein Vancomycin Trough Crossmatch 11/24/16 11/24/16 11/24/16 04:50 04:50 06:08 WBC RBC 2.74 L Hgb 8.4 L Hct 26.1 L MCV RDW 16.0 H Plt Count Lymph % (Auto) [place] % (Auto) [place] # Seg Neutrophils % Seg Neuts % (Manual) Lymphocytes % (Manual) Monocytes % (Manual) Basophils % (Manual) Nucleated RBC % Seg Neutrophils # Seg Neutrophils # Man Lymphocytes # (Manual) Monocytes # (Manual) Eosinophils # (Manual) Basophils # (Manual) PT INR APTT Heparin Anti-Xa Level POC ABG pH POC ABG pCO2 POC ABG pO2 Sodium 133 L Potassium Chloride Carbon Dioxide 19 L BUN 23 H Creatinine Glucose 200 H POC Glucose 187 H Calcium 7.2 L Phosphorus Magnesium AST Alkaline Phosphatase Troponin T C-Reactive Protein Total Protein Albumin Triglycerides HDL Cholesterol Lipase Vitamin B12 TSH Urine WBC (Auto) Urine Chloride Urine Total Protein Vancomycin Trough Crossmatch 11/24/16 11/24/16 11/24/16 12:02 17:43 23:35 WBC RBC Hgb Hct MCV RDW Plt Count Lymph % (Auto) [place] % (Auto) [place] # Seg Neutrophils % Seg Neuts % (Manual) Lymphocytes % (Manual) Monocytes % (Manual) Basophils % (Manual) Nucleated RBC % Seg Neutrophils # Seg Neutrophils # Man Lymphocytes # (Manual) Monocytes # (Manual) Eosinophils # (Manual) Basophils # (Manual) PT INR APTT Heparin Anti-Xa Level POC ABG pH POC ABG pCO2 POC ABG pO2 Sodium Potassium Chloride Carbon Dioxide BUN Creatinine Glucose POC Glucose 250 H 226 H 230 H Calcium Phosphorus Magnesium AST Alkaline Phosphatase Troponin T C-Reactive Protein Total Protein Albumin Triglycerides HDL Cholesterol Lipase Vitamin B12 TSH Urine WBC (Auto) Urine Chloride Urine Total Protein Vancomycin Trough Crossmatch 11/25/16 11/25/16 11/25/16 05:47 11:37 18:00 WBC RBC Hgb Hct MCV RDW Plt Count Lymph % (Auto) [place] % (Auto) [place] # Seg Neutrophils % Seg Neuts % (Manual) Lymphocytes % (Manual) Monocytes % (Manual) Basophils % (Manual) Nucleated RBC % Seg Neutrophils # Seg Neutrophils # Man Lymphocytes # (Manual) Monocytes # (Manual) Eosinophils # (Manual) Basophils # (Manual) PT INR APTT Heparin Anti-Xa Level POC ABG pH POC ABG pCO2 POC ABG pO2 Sodium Potassium Chloride Carbon Dioxide BUN Creatinine Glucose POC Glucose 229 H 226 H 226 H Calcium Phosphorus Magnesium AST Alkaline Phosphatase Troponin T C-Reactive Protein Total Protein Albumin Triglycerides HDL Cholesterol Lipase Vitamin B12 TSH Urine WBC (Auto) Urine Chloride Urine Total Protein Vancomycin Trough Crossmatch 11/26/16 11/26/16 11/26/16 05:43 12:05 17:05 WBC RBC Hgb Hct MCV RDW Plt Count Lymph % (Auto) [place] % (Auto) [place] # Seg Neutrophils % Seg Neuts % (Manual) Lymphocytes % (Manual) Monocytes % (Manual) Basophils % (Manual) Nucleated RBC % Seg Neutrophils # Seg Neutrophils # Man Lymphocytes # (Manual) Monocytes # (Manual) Eosinophils # (Manual) Basophils # (Manual) PT INR APTT Heparin Anti-Xa Level POC ABG pH POC ABG pCO2 POC ABG pO2 Sodium Potassium Chloride Carbon Dioxide BUN Creatinine Glucose POC Glucose 262 H 260 H 193 H Calcium Phosphorus Magnesium AST Alkaline Phosphatase Troponin T C-Reactive Protein Total Protein Albumin Triglycerides HDL Cholesterol Lipase Vitamin B12 TSH Urine WBC (Auto) Urine Chloride Urine Total Protein Vancomycin Trough Crossmatch 11/26/16 11/27/16 11/27/16 23:46 05:49 12:36 WBC RBC Hgb Hct MCV RDW Plt Count Lymph % (Auto) [place] % (Auto) [place] # Seg Neutrophils % Seg Neuts % (Manual) Lymphocytes % (Manual) Monocytes % (Manual) Basophils % (Manual) Nucleated RBC % Seg Neutrophils # Seg Neutrophils # Man Lymphocytes # (Manual) Monocytes # (Manual) Eosinophils # (Manual) Basophils # (Manual) PT INR APTT Heparin Anti-Xa Level POC ABG pH POC ABG pCO2 POC ABG pO2 Sodium Potassium Chloride Carbon Dioxide BUN Creatinine Glucose POC Glucose 183 H 182 H 250 H Calcium Phosphorus Magnesium AST Alkaline Phosphatase Troponin T C-Reactive Protein Total Protein Albumin Triglycerides HDL Cholesterol Lipase Vitamin B12 TSH Urine WBC (Auto) Urine Chloride Urine Total Protein Vancomycin Trough Crossmatch 11/27/16 11/27/16 11/27/16 17:02 17:45 22:42 WBC RBC Hgb Hct MCV RDW Plt Count Lymph % (Auto) [place] % (Auto) [place] # Seg Neutrophils % Seg Neuts % (Manual) Lymphocytes % (Manual) Monocytes % (Manual) Basophils % (Manual) Nucleated RBC % Seg Neutrophils # Seg Neutrophils # Man Lymphocytes # (Manual) Monocytes # (Manual) Eosinophils # (Manual) Basophils # (Manual) PT INR APTT Heparin Anti-Xa Level POC ABG pH 7.331 L POC ABG pCO2 POC ABG pO2 46 L Sodium Potassium Chloride Carbon Dioxide BUN Creatinine Glucose POC Glucose 275 H Calcium Phosphorus Magnesium AST Alkaline Phosphatase Troponin T 0.093 H C-Reactive Protein Total Protein Albumin Triglycerides HDL Cholesterol Lipase Vitamin B12 TSH Urine WBC (Auto) Urine Chloride Urine Total Protein Vancomycin Trough Crossmatch 11/27/16 11/28/16 11/28/16 23:28 05:46 05:46 WBC RBC 2.88 L Hgb 8.9 L Hct 27.7 L MCV RDW 17.2 H Plt Count Lymph % (Auto) [place] % (Auto) [place] # Seg Neutrophils % Seg Neuts % (Manual) Lymphocytes % (Manual) Monocytes % (Manual) Basophils % (Manual) Nucleated RBC % Seg Neutrophils # Seg Neutrophils # Man Lymphocytes # (Manual) Monocytes # (Manual) Eosinophils # (Manual) Basophils # (Manual) PT 15.1 H INR 1.20 H APTT Heparin Anti-Xa Level POC ABG pH POC ABG pCO2 POC ABG pO2 Sodium Potassium Chloride Carbon Dioxide BUN Creatinine Glucose POC Glucose 237 H Calcium Phosphorus Magnesium AST Alkaline Phosphatase Troponin T C-Reactive Protein Total Protein Albumin Triglycerides HDL Cholesterol Lipase Vitamin B12 TSH Urine WBC (Auto) Urine Chloride Urine Total Protein Vancomycin Trough Crossmatch 11/28/16 11/28/16 11/28/16 05:46 05:46 05:56 WBC RBC Hgb Hct MCV RDW Plt Count Lymph % (Auto) [place] % (Auto) [place] # Seg Neutrophils % Seg Neuts % (Manual) Lymphocytes % (Manual) Monocytes % (Manual) Basophils % (Manual) Nucleated RBC % Seg Neutrophils # Seg Neutrophils # Man Lymphocytes # (Manual) Monocytes # (Manual) Eosinophils # (Manual) Basophils # (Manual) PT INR APTT Heparin Anti-Xa Level POC ABG pH POC ABG pCO2 POC ABG pO2 Sodium Potassium Chloride Carbon Dioxide 21 L BUN 27 H Creatinine Glucose 237 H POC Glucose 275 H Calcium 8.1 L Phosphorus Magnesium AST Alkaline Phosphatase Troponin T 0.090 H C-Reactive Protein Total Protein Albumin Triglycerides 154 H HDL Cholesterol 38 L Lipase Vitamin B12 TSH Urine WBC (Auto) Urine Chloride Urine Total Protein Vancomycin Trough Crossmatch 11/28/16 11/28/16 11/28/16 11:20 18:16 23:30 WBC RBC Hgb Hct MCV RDW Plt Count Lymph % (Auto) [place] % (Auto) [place] # Seg Neutrophils % Seg Neuts % (Manual) Lymphocytes % (Manual) Monocytes % (Manual) Basophils % (Manual) Nucleated RBC % Seg Neutrophils # Seg Neutrophils # Man Lymphocytes # (Manual) Monocytes # (Manual) Eosinophils # (Manual) Basophils # (Manual) PT INR APTT Heparin Anti-Xa Level POC ABG pH POC ABG pCO2 POC ABG pO2 Sodium Potassium Chloride Carbon Dioxide BUN Creatinine Glucose POC Glucose 277 H 222 H 143 H Calcium Phosphorus Magnesium AST Alkaline Phosphatase Troponin T C-Reactive Protein Total Protein Albumin Triglycerides HDL Cholesterol Lipase Vitamin B12 TSH Urine WBC (Auto) Urine Chloride Urine Total Protein Vancomycin Trough Crossmatch 11/29/16 11/29/16 11/29/16 04:46 05:42 12:10 WBC RBC Hgb Hct MCV RDW Plt Count Lymph % (Auto) [place] % (Auto) [place] # Seg Neutrophils % Seg Neuts % (Manual) Lymphocytes % (Manual) Monocytes % (Manual) Basophils % (Manual) Nucleated RBC % Seg Neutrophils # Seg Neutrophils # Man Lymphocytes # (Manual) Monocytes # (Manual) Eosinophils # (Manual) Basophils # (Manual) PT 16.7 H INR 1.36 H APTT Heparin Anti-Xa Level POC ABG pH POC ABG pCO2 POC ABG pO2 Sodium Potassium Chloride Carbon Dioxide BUN Creatinine Glucose POC Glucose 165 H 232 H Calcium Phosphorus Magnesium AST Alkaline Phosphatase Troponin T C-Reactive Protein Total Protein Albumin Triglycerides HDL Cholesterol Lipase Vitamin B12 TSH Urine WBC (Auto) Urine Chloride Urine Total Protein Vancomycin Trough Crossmatch 11/29/16 11/30/16 11/30/16 18:09 00:04 05:04 WBC RBC Hgb Hct MCV RDW Plt Count Lymph % (Auto) [place] % (Auto) [place] # Seg Neutrophils % Seg Neuts % (Manual) Lymphocytes % (Manual) Monocytes % (Manual) Basophils % (Manual) Nucleated RBC % Seg Neutrophils # Seg Neutrophils # Man Lymphocytes # (Manual) Monocytes # (Manual) Eosinophils # (Manual) Basophils # (Manual) PT 17.8 H INR 1.47 H APTT Heparin Anti-Xa Level POC ABG pH POC ABG pCO2 POC ABG pO2 Sodium Potassium Chloride Carbon Dioxide BUN Creatinine Glucose POC Glucose 214 H 110 H Calcium Phosphorus Magnesium AST Alkaline Phosphatase Troponin T C-Reactive Protein Total Protein Albumin Triglycerides HDL Cholesterol Lipase Vitamin B12 TSH Urine WBC (Auto) Urine Chloride Urine Total Protein Vancomycin Trough Crossmatch 11/30/16 11/30/16 11/30/16 05:46 11:59 17:51 WBC RBC Hgb Hct MCV RDW Plt Count Lymph % (Auto) [place] % (Auto) [place] # Seg Neutrophils % Seg Neuts % (Manual) Lymphocytes % (Manual) Monocytes % (Manual) Basophils % (Manual) Nucleated RBC % Seg Neutrophils # Seg Neutrophils # Man Lymphocytes # (Manual) Monocytes # (Manual) Eosinophils # (Manual) Basophils # (Manual) PT INR APTT Heparin Anti-Xa Level POC ABG pH POC ABG pCO2 POC ABG pO2 Sodium Potassium Chloride Carbon Dioxide BUN Creatinine Glucose POC Glucose 118 H 163 H 134 H Calcium Phosphorus Magnesium AST Alkaline Phosphatase Troponin T C-Reactive Protein Total Protein Albumin Triglycerides HDL Cholesterol Lipase Vitamin B12 TSH Urine WBC (Auto) Urine Chloride Urine Total Protein Vancomycin Trough Crossmatch 11/30/16 12/01/16 12/01/16 23:48 05:43 07:25 WBC RBC Hgb Hct MCV RDW Plt Count Lymph % (Auto) [place] % (Auto) [place] # Seg Neutrophils % Seg Neuts % (Manual) Lymphocytes % (Manual) Monocytes % (Manual) Basophils % (Manual) Nucleated RBC % Seg Neutrophils # Seg Neutrophils # Man Lymphocytes # (Manual) Monocytes # (Manual) Eosinophils # (Manual) Basophils # (Manual) PT 19.6 H INR 1.66 H APTT Heparin Anti-Xa Level POC ABG pH POC ABG pCO2 POC ABG pO2 Sodium Potassium Chloride Carbon Dioxide BUN Creatinine Glucose POC Glucose 127 H 161 H Calcium Phosphorus Magnesium AST Alkaline Phosphatase Troponin T C-Reactive Protein Total Protein Albumin Triglycerides HDL Cholesterol Lipase Vitamin B12 TSH Urine WBC (Auto) Urine Chloride Urine Total Protein Vancomycin Trough Crossmatch 12/01/16 12/01/16 12/01/16 11:45 17:24 23:42 WBC RBC Hgb Hct MCV RDW Plt Count Lymph % (Auto) [place] % (Auto) [place] # Seg Neutrophils % Seg Neuts % (Manual) Lymphocytes % (Manual) Monocytes % (Manual) Basophils % (Manual) Nucleated RBC % Seg Neutrophils # Seg Neutrophils # Man Lymphocytes # (Manual) Monocytes # (Manual) Eosinophils # (Manual) Basophils # (Manual) PT INR APTT Heparin Anti-Xa Level POC ABG pH POC ABG pCO2 POC ABG pO2 Sodium Potassium Chloride Carbon Dioxide BUN Creatinine Glucose POC Glucose 187 H 113 H 132 H Calcium Phosphorus Magnesium AST Alkaline Phosphatase Troponin T C-Reactive Protein Total Protein Albumin Triglycerides HDL Cholesterol Lipase Vitamin B12 TSH Urine WBC (Auto) Urine Chloride Urine Total Protein Vancomycin Trough Crossmatch 12/02/16 12/02/16 12/02/16 05:07 05:14 11:31 WBC RBC Hgb Hct MCV RDW Plt Count Lymph % (Auto) [place] % (Auto) [place] # Seg Neutrophils % Seg Neuts % (Manual) Lymphocytes % (Manual) Monocytes % (Manual) Basophils % (Manual) Nucleated RBC % Seg Neutrophils # Seg Neutrophils # Man Lymphocytes # (Manual) Monocytes # (Manual) Eosinophils # (Manual) Basophils # (Manual) PT 20.3 H INR 1.74 H APTT Heparin Anti-Xa Level POC ABG pH POC ABG pCO2 POC ABG pO2 Sodium Potassium Chloride Carbon Dioxide BUN Creatinine Glucose POC Glucose 172 H 209 H Calcium Phosphorus Magnesium AST Alkaline Phosphatase Troponin T C-Reactive Protein Total Protein Albumin Triglycerides HDL Cholesterol Lipase Vitamin B12 TSH Urine WBC (Auto) Urine Chloride Urine Total Protein Vancomycin Trough Crossmatch 12/02/16 12/02/16 12/03/16 13:59 17:30 04:00 WBC RBC Hgb 7.9 L Hct 25.1 L MCV RDW Plt Count Lymph % (Auto) [place] % (Auto) [place] # Seg Neutrophils % Seg Neuts % (Manual) Lymphocytes % (Manual) Monocytes % (Manual) Basophils % (Manual) Nucleated RBC % Seg Neutrophils # Seg Neutrophils # Man Lymphocytes # (Manual) Monocytes # (Manual) Eosinophils # (Manual) Basophils # (Manual) PT INR APTT Heparin Anti-Xa Level POC ABG pH POC ABG pCO2 POC ABG pO2 Sodium Potassium Chloride Carbon Dioxide BUN Creatinine Glucose POC Glucose 200 H 160 H Calcium Phosphorus Magnesium AST Alkaline Phosphatase Troponin T C-Reactive Protein Total Protein Albumin Triglycerides HDL Cholesterol Lipase Vitamin B12 TSH Urine WBC (Auto) Urine Chloride Urine Total Protein Vancomycin Trough Crossmatch 12/03/16 12/03/16 12/03/16 05:27 05:29 11:22 WBC RBC Hgb Hct MCV RDW Plt Count Lymph % (Auto) [place] % (Auto) [place] # Seg Neutrophils % Seg Neuts % (Manual) Lymphocytes % (Manual) Monocytes % (Manual) Basophils % (Manual) Nucleated RBC % Seg Neutrophils # Seg Neutrophils # Man Lymphocytes # (Manual) Monocytes # (Manual) Eosinophils # (Manual) Basophils # (Manual) PT 19.6 H INR 1.66 H APTT Heparin Anti-Xa Level POC ABG pH POC ABG pCO2 POC ABG pO2 Sodium Potassium Chloride Carbon Dioxide BUN Creatinine Glucose POC Glucose 149 H 222 H Calcium Phosphorus Magnesium AST Alkaline Phosphatase Troponin T C-Reactive Protein Total Protein Albumin Triglycerides HDL Cholesterol Lipase Vitamin B12 TSH Urine WBC (Auto) Urine Chloride Urine Total Protein Vancomycin Trough Crossmatch 12/03/16 12/04/16 12/04/16 16:47 00:25 05:20 WBC RBC Hgb Hct MCV RDW Plt Count Lymph % (Auto) [place] % (Auto) [place] # Seg Neutrophils % Seg Neuts % (Manual) Lymphocytes % (Manual) Monocytes % (Manual) Basophils % (Manual) Nucleated RBC % Seg Neutrophils # Seg Neutrophils # Man Lymphocytes # (Manual) Monocytes # (Manual) Eosinophils # (Manual) Basophils # (Manual) PT 15.8 H INR 1.27 H APTT Heparin Anti-Xa Level POC ABG pH POC ABG pCO2 POC ABG pO2 Sodium Potassium Chloride Carbon Dioxide BUN Creatinine Glucose POC Glucose 149 H 154 H Calcium Phosphorus Magnesium AST Alkaline Phosphatase Troponin T C-Reactive Protein Total Protein Albumin Triglycerides HDL Cholesterol Lipase Vitamin B12 TSH Urine WBC (Auto) Urine Chloride Urine Total Protein Vancomycin Trough Crossmatch 12/04/16 05:42 WBC RBC Hgb Hct MCV RDW Plt Count Lymph % (Auto) [place] % (Auto) [place] # Seg Neutrophils % Seg Neuts % (Manual) Lymphocytes % (Manual) Monocytes % (Manual) Basophils % (Manual) Nucleated RBC % Seg Neutrophils # Seg Neutrophils # Man Lymphocytes # (Manual) Monocytes # (Manual) Eosinophils # (Manual) Basophils # (Manual) PT INR APTT Heparin Anti-Xa Level POC ABG pH POC ABG pCO2 POC ABG pO2 Sodium Potassium Chloride Carbon Dioxide BUN Creatinine Glucose POC Glucose 198 H Calcium Phosphorus Magnesium AST Alkaline Phosphatase Troponin T C-Reactive Protein Total Protein Albumin Triglycerides HDL Cholesterol Lipase Vitamin B12 TSH Urine WBC (Auto) Urine Chloride Urine Total Protein Vancomycin Trough Crossmatch Chest x-ray: image reviewed Allied health notes reviewed: RT
[2016-12-04] MEDS: LASIX IV SCH ×2 (12:15→23:24)
[2016-12-04 13:43] LABS: Anion Gap 18 mmol/L; BUN/Creatinine Ratio 41.42; Blood Urea Nitrogen 29 mg/dL (7-17); Calcium 8.4 mg/dL (8.4-10.2); Carbon Dioxide 24 mmol/L (22-30); Chloride 106.4 mmol/L (98-107); Glucose 208 mg/dL (65-100); Potassium 4.2 mmol/L (3.6-5.0); Sodium 144 mmol/L (137-145)
[2016-12-04] MEDS: DILANTIN FEEDTUBE SCH ×2 (15:09→23:24)
--- NOTE | 2016-12-04 15:40 | Progress Note ---
Assessment and Plan Assessment and plan: Patient is a 66-year-old woman who presented with lethargy and altered mental status with possible anoxic injury unknown duration of how long she was down for she deteriorated and was intubated in emergency room, she was managed for DKA and she also developed sepsis due to UTI and right lower extremity ischemia- > Cold right foot which I discovered on Rounds on 10/17/16 and I asked the nurse for the bedside doppler which showed no pulse, My exam on the morning of morning has changed, she had a pulse right foot. Arterial duplex revealed a proximal right superficial femoral artery occlusion. I consulted and discussed with Vascular surgery, Dr. Eller ==>Acute ischemic right foot. 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 Remained very difficult to wean from the vent. Although eventually was tolerating pressure support. She subsequently went into cardiac arrest was resuscitated but this time was not able to recover back to following commands as previous before second cardiac arrest. Heparin was discontinued due to CPR. Vascular did not feel at this time that for reactivation of the right lower extremity was needed. Imaging studies were consented for anoxic encephalopathy and cortical irritability although no diagnosis of brain was noted. Dr. Mcclure discussed with family extensively and has informed them about real possibility of not having any meaningful neurological recovery. They agreed with transfer to a skilled facility with vent Ability. Case management is working and is meantime we'll continue current therapy and management. -S/P cardiopulomary arrest x 2 -ACUTE DVT IN THE RT.AXILLARY VEIN EXTENDING TO THE RT.BRACHIAL VEIN -A/C respiratory failure with hypercapnea -Seizure-Per family prior hx -DM, s/p DKA -Hyponatremia -Acute limb ischemia of right lower ext due to SFA thrombosis- s/p right BKA -LUCY/CKD 3 likely vasomotor nephropathy-resolved -Sepsis, Strept Group B tracheobronchitis, poa- Multifactorial -Anemia of chronic disease -Hematuria -Metabolic acidosis -Severe Hypokalemia-RESOLVED -Pancreatitis, acute, poa -Vaginal candidiasis -Hypernatremia -MSOF, poa Plan: * s/p EEG - findings consistent with anoxic encephalopathy and cortical irritability * Neurology notes intact brain stem * Restarted on anticaogulation * PSV as tolerated * Family updated about the very real possibility of not having any meaningful neurological recovery. all questions answered. Family meeting with daughter, and grandchild with greatgrand child in attendance. Case mangement and social services coordinator and bedside nurse were also present. * Poor prognosis. * Plan for transfer to custodial acute care facility pending * MRI brain with no gross abnormality * adjust insulin therapy * Neurologic input noted. EEG abnormal. * Heparin had to be held due to the risk associated considering recent CPR with chest compressions. * vascular following up on right BKA remains poor prognosis and likely will need a conversion to AKA. * Continue subcutaneous insulin and electrolyte replacement * Continue Cardizem and beta juan antonio * Monitor electrolytes and hemoglobin. * continue dilantin * DVT and GI prophylaxis Disposition: Placement? snf with vent capabilities vs ltach. Facility out in [facility] had accepted, just waiting on bed Poor prognosis 35 minutes critical care time History Interval history: Patient seen and examined remains on ventilatory support, following commands. No adverse events reported by nursing staff. No family at bedside today. Hospitalist Physical - Physical exam Narrative exam: VITAL SIGNS: Reviewed. GENERAL: vent support Vital signs as documented. HEAD: No signs of head trauma. EYES: Pupils are equal. EARS: Unable to assess MOUTH: missing dentition NECK: Trach CHEST: Chest with diminshed CARDIAC: Regular rate and rhythm. S1 and S2, without murmurs, gallops, or rubs. VASCULAR: trace Edema. Peripheral pulses left lower ext ABDOMEN: Soft, No rebound or guarding, and no masses palpated. Bowel Sounds normal. MUSCULOSKELETAL: BKA right lower extremity dressing in place. Some necrosis to the lateral aspect. NEUROLOGIC EXAM: not following commands, opens and closes eyes none purposeful PSYCHIATRIC: unable to assess SKIN: dressing to right lower ext stump, superficial necrosis, dressing in place - Constitutional Vitals: Temp Pulse Resp BP Pulse Ox 98.7 F 81 32 H 171/83 100 12/04/16 12:00 12/04/16 15:00 12/04/16 15:00 12/04/16 15:00 12/04/16 15:00 General appearance: Present: other (intubated) Results - Labs CBC & Chem 7: 12/02/16 13:59 12/04/16 13:12 Labs: Laboratory Last Values WBC 10.5 K/mm3 (4.5-11.0) 11/28/16 05:46 RBC 2.88 M/mm3 (3.65-5.03) L 11/28/16 05:46 Hgb 7.9 gm/dl (10.1-14.3) L 12/02/16 13:59 Hct 25.1 % (30.3-42.9) L 12/02/16 13:59 MCV 96 fl (79-97) 11/28/16 05:46 MCH 31 pg (28-32) 11/28/16 05:46 MCHC 32 % (30-34) 11/28/16 05:46 RDW 17.2 % (13.2-15.2) H 11/28/16 05:46 Plt Count 391 K/mm3 (140-440) 11/28/16 05:46 Lymph % (Auto) 14.8 % (13.4-35.0) 11/22/16 11:49 [place] % (Auto) 6.7 % (0.0-7.3) 11/22/16 11:49 Eos % (Auto) 1.1 % (0.0-4.3) 11/22/16 11:49 Baso % (Auto) 0.6 % (0.0-1.8) 11/22/16 11:49 Lymph # 1.6 K/mm3 (1.2-5.4) 11/22/16 11:49 [place] # 0.7 K/mm3 (0.0-0.8) 11/22/16 11:49 Eos # 0.1 K/mm3 (0.0-0.4) 11/22/16 11:49 Baso # 0.1 K/mm3 (0.0-0.1) 11/22/16 11:49 Add Manual Diff Complete 11/18/16 13:00 Total Counted 100 11/18/16 13:00 Seg Neutrophils % 76.8 % (40.0-70.0) H 11/22/16 11:49 Seg Neuts % (Manual) 90.0 % (40.0-70.0) H 11/18/16 13:00 Band Neutrophils % 0 % 11/18/16 13:00 Lymphocytes % (Manual) 8.0 % (13.4-35.0) L 11/18/16 13:00 Reactive Lymphs % (Man) 0 % 11/18/16 13:00 Monocytes % (Manual) 2.0 % (0.0-7.3) 11/18/16 13:00 Eosinophils % (Manual) 0 % (0.0-4.3) 11/18/16 13:00 Basophils % (Manual) 0 % (0.0-1.8) 11/18/16 13:00 Metamyelocytes % 0 % 11/18/16 13:00 Myelocytes % 0 % 11/18/16 13:00 Promyelocytes % 0 % 11/18/16 13:00 Blast Cells % 0 % 11/18/16 13:00 Nucleated RBC % Not Reportable 11/18/16 13:00 Seg Neutrophils # 8.5 K/mm3 (1.8-7.7) H 11/22/16 11:49 Seg Neutrophils # Man 11.3 K/mm3 (1.8-7.7) H 11/18/16 13:00 Band Neutrophils # 0.0 K/mm3 11/18/16 13:00 Lymphocytes # (Manual) 1.0 K/mm3 (1.2-5.4) L 11/18/16 13:00 Abs React Lymphs (Man) 0.0 K/mm3 11/18/16 13:00 Monocytes # (Manual) 0.3 K/mm3 (0.0-0.8) 11/18/16 13:00 Eosinophils # (Manual) 0.0 K/mm3 (0.0-0.4) 11/18/16 13:00 Basophils # (Manual) 0.0 K/mm3 (0.0-0.1) 11/18/16 13:00 Metamyelocytes # 0.0 K/mm3 11/18/16 13:00 Myelocytes # 0.0 K/mm3 11/18/16 13:00 Promyelocytes # 0.0 K/mm3 11/18/16 13:00 Blast Cells # 0.0 K/mm3 11/18/16 13:00 Pathologist Review 10/29/16 09:30 WBC Morphology Not Reportable 11/18/16 13:00 Hypersegmented Neuts Not Reportable 11/18/16 13:00 Hyposegmented Neuts Not Reportable 11/18/16 13:00 Hypogranular Neuts Not Reportable 11/18/16 13:00 Hypersegmented Polys TNR 10/17/16 07:08 Smudge Cells Not Reportable 11/18/16 13:00 Toxic Granulation Not Reportable 11/18/16 13:00 Toxic Vacuolation Not Reportable 11/18/16 13:00 Dohle Bodies Not Reportable 11/18/16 13:00 Pelger-Huet Anomaly Not Reportable 11/18/16 13:00 Alka Rods Not Reportable 11/18/16 13:00 Platelet Estimate Consistent w auto 11/18/16 13:00 Clumped Platelets Not Reportable 11/18/16 13:00 Plt Clumps, EDTA Not Reportable 11/18/16 13:00 Large Platelets Not Reportable 11/18/16 13:00 Giant Platelets Not Reportable 11/18/16 13:00 Platelet Satelliting Not Reportable 11/18/16 13:00 Plt Morphology Comment Not Reportable 11/18/16 13:00 RBC Morphology Not Reportable 11/18/16 13:00 Dimorphic RBCs Not Reportable 11/18/16 13:00 Polychromasia Not Reportable 11/18/16 13:00 Hypochromasia Not Reportable 11/18/16 13:00 Poikilocytosis Not Reportable 11/18/16 13:00 Basophilic Stippling TNR 10/17/16 07:08 Anisocytosis 1+ 11/18/16 13:00 Microcytosis Not Reportable 11/18/16 13:00 Macrocytosis Not Reportable 11/18/16 13:00 Spherocytes Not Reportable 11/18/16 13:00 Pappenheimer Bodies Not Reportable 11/18/16 13:00 Sickle Cells Not Reportable 11/18/16 13:00 Target Cells Not Reportable 11/18/16 13:00 Tear Drop Cells Not Reportable 11/18/16 13:00 Ovalocytes Not Reportable 11/18/16 13:00 Stomatocytes Few 11/03/16 00:05 Helmet Cells Not Reportable 11/18/16 13:00 [place] Bodies Not Reportable 11/18/16 13:00 [place] Rings Not Reportable 11/18/16 13:00 Jeannette Cells Not Reportable 11/18/16 13:00 Bite Cells Not Reportable 11/18/16 13:00 Crenated Cell Not Reportable 11/18/16 13:00 Elliptocytes Not Reportable 11/18/16 13:00 Acanthocytes (Spur) Not Reportable 11/18/16 13:00 Rouleaux Not Reportable 11/18/16 13:00 Hemoglobin C Crystals Not Reportable 11/18/16 13:00 Schistocytes Not Reportable 11/18/16 13:00 Malaria parasites Not Reportable 11/18/16 13:00 David Bodies Not Reportable 11/18/16 13:00 Hem Pathologist Commnt No 11/18/16 13:00 PT 15.8 Sec. (12.2-14.9) H 12/04/16 05:20 INR 1.27 (0.87-1.13) H 12/04/16 05:20 APTT 131.1 Sec. (24.2-36.6) H* 11/18/16 05:45 Heparin Anti-Xa Level 0.51 U.I./ml (0.3-0.7) 11/18/16 11:16 POC ABG pH 7.331 (7.35-7.45) L 11/27/16 17:45 POC ABG pCO2 38.1 (35-45) 11/27/16 17:45 POC ABG pO2 46 (80-105) L 11/27/16 17:45 POC ABG HCO3 20.1 11/27/16 17:45 POC ABG Total CO2 21 11/27/16 17:45 POC ABG O2 Sat 79 11/27/16 17:45 POC ABG Base Excess -6 11/27/16 17:45 VBG pH 7.020 (7.320-7.420) L* 10/13/16 04:22 FiO2 40 % 11/27/16 17:45 Sodium 144 mmol/L (137-145) 12/04/16 13:12 Potassium 4.2 mmol/L (3.6-5.0) 12/04/16 13:12 Chloride 106.4 mmol/L (98-107) 12/04/16 13:12 Carbon Dioxide 24 mmol/L (22-30) 12/04/16 13:12 Anion Gap 18 mmol/L 12/04/16 13:12 BUN 29 mg/dL (7-17) H 12/04/16 13:12 Creatinine 0.7 mg/dL (0.7-1.2) 12/04/16 13:12 Estimated GFR > 60 ml/min 12/04/16 13:12 BUN/Creatinine Ratio 41.42 % 12/04/16 13:12 Glucose 208 mg/dL (65-100) H 12/04/16 13:12 POC Glucose 221 (70-105) H 12/04/16 11:45 Osmolality 332 Mosm/kg 10/14/16 07:03 Lactic Acid 1.8 mmol/L (0.7-2.0) 10/14/16 07:03 Calcium 8.4 mg/dL (8.4-10.2) 12/04/16 13:12 Phosphorus 2.7 mg/dL (2.5-4.5) D 10/21/16 Unknown Magnesium 2.0 mg/dL (1.7-2.3) 11/20/16 05:00 Total Bilirubin 0.2 mg/dL (0.1-1.2) 11/19/16 04:30 AST 9 units/L (5-40) 11/19/16 04:30 ALT 7 units/L (7-56) 11/19/16 04:30 Alkaline Phosphatase 82 units/L (35-129) 11/19/16 04:30 Ammonia 35.0 umol/L (25-60) 10/13/16 05:40 Total Creatine Kinase 107 units/L (30-135) 10/13/16 04:22 CK-MB (CK-2) 3.1 ng/mL (0.0-4.0) 10/13/16 04:22 CK-MB (CK-2) Rel Index 2.8 (0-4) 10/13/16 04:22 Troponin T 0.090 ng/mL (0.00-0.029) H 11/28/16 05:46 C-Reactive Protein 10.50 mg/dL (0.00-1.30) H 10/13/16 16:14 Total Protein 5.5 g/dL (6.3-8.2) L 11/19/16 04:30 Albumin 2.1 g/dL (3.9-5) L 11/19/16 04:30 Albumin/Globulin Ratio 0.6 % 11/19/16 04:30 Triglycerides 154 mg/dL (2-149) H 11/28/16 05:46 Cholesterol 128 mg/dL (50-199) 04/12/17 05:46 LDL Cholesterol Direct 60 mg/dL (50-130) 11/28/16 05:46 HDL Cholesterol 38 mg/dL (40-59) L 11/28/16 05:46 Cholesterol/HDL Ratio 3.36 % 11/28/16 05:46 Amylase 30 units/L (27-131) 11/10/16 04:30 Lipase 41 units/L (13-60) 11/10/16 04:30 Vitamin B12 976.8 pg/mL (211-911) H 10/22/16 10:25 TSH 0.162 mlU/mL (0.270-4.200) L 10/22/16 14:50 Free T4 0.77 ng/dL (0.76-1.46) 10/22/16 14:50 Urine Color Yellow (Yellow) 11/14/16 19:39 Urine Turbidity Cloudy (Clear) 11/14/16 19:39 Urine pH 6.0 (5.0-7.0) 11/14/16 19:39 Ur Specific [place] 1.010 (1.003-1.030) 11/14/16 19:39 Urine Protein 30 mg/dl mg/dL (Negative) 11/14/16 19:39 Urine Glucose (UA) 50 mg/dL (Negative) 11/14/16 19:39 Urine Ketones 20 mg/dL (Negative) 11/14/16 19:39 Urine Blood Lg (Negative) 11/14/16 19:39 Urine Nitrite Neg (Negative) 11/14/16 19:39 Urine Bilirubin Neg (Negative) 11/14/16 19:39 Urine Urobilinogen < 2.0 mg/dL (<2.0) 11/14/16 19:39 Ur Leukocyte Esterase Sm (Negative) 11/14/16 19:39 Urine WBC (Auto) 3.0 /HPF (0.0-6.0) 11/14/16 19:39 Urine RBC (Auto) > 182.0 /HPF (0.0-6.0) 11/14/16 19:39 U Epithel Cells (Auto) 1.0 /HPF (0-13.0) 10/15/16 11:05 Urine Bacteria (Auto) 1+ /HPF (Negative) 11/14/16 19:39 Urine Mucus Few /HPF 11/14/16 19:39 Urine Yeast (Budding) 2+ /HPF 10/15/16 11:05 Urine Osmolality 487 Mosm/kg 10/13/16 Unknown Urine Creatinine < 4.2 mg/dL (0.1-20.0) 10/13/16 Unknown Protein/Creatinin Ratio 0.00 10/13/16 Unknown Urine Sodium 10 mEq/L 10/13/16 Unknown Urine Potassium 1.00 mEq/L 10/13/16 Unknown Urine Chloride 10.0 mEq/L (110-250) L 10/13/16 Unknown Urine Total Protein < 4 mg/dL (5-11.8) L 10/13/16 Unknown Vancomycin Trough 30.4 ug/mL (5.0-20.0) H 11/21/16 09:50 Random Vancomycin 20.8 ug/mL (0-40.0) 11/23/16 04:00 Ketones 107.3 mg/dL (0.2-2.8) H 10/13/16 04:22 Blood Type A POSITIVE 11/03/16 18:01 Antibody Screen Negative 11/03/16 18:01 Crossmatch See Detail 11/03/16 18:01
[2016-12-05] MEDS: DILANTIN FEEDTUBE SCH ×3 (06:31→21:31)
[2016-12-05] MEDS: LOPRESSOR PO SCH ×3 (09:00→21:31)
[2016-12-05] MEDS: LOVENOX SUB-Q SCH (10:12)
[2016-12-05] MEDS: LEVEMIR SUB-Q SCH (10:12)
[2016-12-05] MEDS: PEPCID PO SCH ×2 (10:13→21:32)
[2016-12-05] MEDS: ZESTRIL PO SCH (10:13)
[2016-12-05] MEDS: PLAVIX PO SCH (10:13)
--- NOTE | 2016-12-05 11:29 | Progress Note ---
Assessment and Plan - Patient Problems (1) Acute respiratory failure with hypercapnia Status: Acute Plan to address problem: - continue aspiration precautions / VAP bundles - continue bronchodilators and pulmonary toilet - continue to wean oxygen to keep sats > 94% - cardiac arrest and post arrest encephalopathy makes weaning likelyhood even poorer - continue PSV trials as tolerated - continue to rest on AC qhs during wean - repeat CXR reviewed and diuresis resumed yesterday (lasix 20mg IV q12h X 4 doses) (2) Altered mental status Status: Acute Qualifiers: Altered mental status type: A Coma depth: C Coma timing: C Plan to address problem: - likely anoxic encephalopathy at this point - no active grand-mal seizures - seen by neurology and will follow their recommendations - reviewed EEG and MRI reports and appears overall prognosis guarded at best - continue dilantin (3) LUCY (acute kidney injury) Status: Acute Plan to address problem: - resolved - following I's & O's - tube feeds restarted and tolerating well so far - lasix resumed yesterday (4) DKA (diabetic ketoacidoses) Status: Acute Qualifiers: Diabetes mellitus type: D Diabetes mellitus complication detail: D Plan to address problem: - resolved - continue SSI - continue levemir (5) Sepsis Status: Acute Qualifiers: Sepsis type: S Plan to address problem: - off antibiotics now - follow clinically - trend lactate and CRP prn (6) Emesis Status: Acute Qualifiers: Vomiting type: V Vomiting Intractability: V Nausea presence: N Plan to address problem: - continue aspiration precautions - GI input appreciated - resolved - off reglan now (7) Discharge planning issues Status: Acute Plan to address problem: - cardiac arrest and potential anoxic encephalopathy makes prognosis more guarded now - LTAC evaluation ongoing still ...for now remains critically ill on life sustaining treatments including MVS and at high risk for further deterioration including ...30' CCT Subjective Date of service: 12/05/16 Principal diagnosis: respiratory failure on mechanical ventilatory support, DKA Interval history: Seen and examined at bedside; 24 hour events reviewed; nursing and respiratory care staff consulted; no adverse overnight events reported to me; remains on MVS ; weaning tenuously; no emesis or overt aspiration and no gross bleeding; in room Objective Vital Signs - 12hr 12/04/16 12/05/16 12/05/16 23:30 00:00 00:30 Temperature 98.3 F Pulse Rate 82 81 77 Pulse Rate [ 84 Apical] Pulse Rate [ 84 From Monitor] Pulse Rate [ Left Dorsalis Pedis] Respiratory 26 H 27 H 18 Rate Blood Pressure 165/77 165/78 164/77 O2 Sat by Pulse 100 100 100 Oximetry O2 Sat by Pulse Oximetry [ Assessment] 12/05/16 12/05/16 12/05/16 00:45 01:00 01:30 Temperature Pulse Rate 78 79 77 Pulse Rate [ Apical] Pulse Rate [ From Monitor] Pulse Rate [ Left Dorsalis Pedis] Respiratory 26 H 18 Rate Blood Pressure 163/74 169/76 160/75 O2 Sat by Pulse 100 100 100 Oximetry O2 Sat by Pulse Oximetry [ Assessment] 12/05/16 12/05/16 12/05/16 02:00 02:03 02:30 Temperature Pulse Rate 79 80 Pulse Rate [ Apical] Pulse Rate [ From Monitor] Pulse Rate [ Left Dorsalis Pedis] Respiratory 20 22 Rate Blood Pressure 161/73 172/76 O2 Sat by Pulse 100 100 Oximetry O2 Sat by Pulse 100 Oximetry [ Assessment] 12/05/16 12/05/16 12/05/16 03:00 03:30 04:00 Temperature 98.6 F Pulse Rate 83 84 83 Pulse Rate [ 82 Apical] Pulse Rate [ 83 From Monitor] Pulse Rate [ 8 L Left Dorsalis Pedis] Respiratory 19 17 18 Rate Blood Pressure 169/79 167/76 169/78 O2 Sat by Pulse 100 100 100 Oximetry O2 Sat by Pulse Oximetry [ Assessment] 12/05/16 12/05/16 12/05/16 04:17 04:30 05:00 Temperature Pulse Rate 84 83 84 Pulse Rate [ Apical] Pulse Rate [ From Monitor] Pulse Rate [ Left Dorsalis Pedis] Respiratory 18 25 H Rate Blood Pressure 169/78 169/79 171/79 O2 Sat by Pulse 100 100 100 Oximetry O2 Sat by Pulse Oximetry [ Assessment] 12/05/16 12/05/16 12/05/16 05:30 06:00 09:00 Temperature Pulse Rate 87 87 78 Pulse Rate [ Apical] Pulse Rate [ From Monitor] Pulse Rate [ Left Dorsalis Pedis] Respiratory 23 22 Rate Blood Pressure 171/79 174/80 160/72 O2 Sat by Pulse 100 100 Oximetry O2 Sat by Pulse Oximetry [ Assessment] 12/05/16 12/05/16 09:20 10:13 Temperature Pulse Rate 98 H 98 H Pulse Rate [ Apical] Pulse Rate [ From Monitor] Pulse Rate [ Left Dorsalis Pedis] Respiratory 25 H Rate Blood Pressure 171/80 171/80 O2 Sat by Pulse 100 Oximetry O2 Sat by Pulse Oximetry [ Assessment] Constitutional: no acute distress, other ( Patient likely has anoxic encephalopathy) Eyes: non-icteric ENT: oropharynx moist Neck: supple, no lymphadenopathy, no JVD Effort: mildly labored Ascultation: Bilateral: diminished breath sounds, rales Cardiovascular: regular rate and rhythm, other (S1,S2, No murmurs) Gastrointestinal: normoactive bowel sounds, soft, non-distended, other ( Gastrostomy tube) Integumentary: normal Extremities: no cyanosis, no edema, no ischemia or petechiae, other (s/p right BKA. right UExt Edema) Neurologic: unable to assess, other (encephalopathic) Psychiatric: other (encephalopathic) CBC and BMP: 12/02/16 13:59 12/04/16 13:12 ABG, PT/INR, D-dimer: ABG POC ABG pH 7.331 (7.35-7.45) L 11/27/16 17:45 POC ABG pCO2 38.1 (35-45) 11/27/16 17:45 POC ABG pO2 46 (80-105) L 11/27/16 17:45 POC ABG HCO3 20.1 11/27/16 17:45 POC ABG Total CO2 21 11/27/16 17:45 POC ABG O2 Sat 79 11/27/16 17:45 PT/INR, D-dimer PT 15.8 Sec. (12.2-14.9) H 12/04/16 05:20 INR 1.27 (0.87-1.13) H 12/04/16 05:20 Abnormal lab findings: Abnormal Labs 10/13/16 10/13/16 10/13/16 06:38 06:38 07:23 WBC RBC Hgb Hct MCV RDW Plt Count Lymph % (Auto) [place] % (Auto) [place] # Seg Neutrophils % Seg Neuts % (Manual) Lymphocytes % (Manual) Monocytes % (Manual) Basophils % (Manual) Nucleated RBC % Seg Neutrophils # Seg Neutrophils # Man Lymphocytes # (Manual) Monocytes # (Manual) Eosinophils # (Manual) Basophils # (Manual) PT INR APTT Heparin Anti-Xa Level POC ABG pH POC ABG pCO2 POC ABG pO2 Sodium Potassium 6.2 H* Chloride Carbon Dioxide 8 L* BUN 85 H Creatinine 2.8 H Glucose 602 H* POC Glucose 495 H Calcium 7.9 L Phosphorus 6.9 H D Magnesium 3.0 H AST Alkaline Phosphatase Troponin T C-Reactive Protein Total Protein Albumin Triglycerides HDL Cholesterol Lipase Vitamin B12 TSH Urine WBC (Auto) Urine Chloride Urine Total Protein Vancomycin Trough Crossmatch 10/13/16 10/13/16 10/13/16 08:49 08:55 10:12 WBC RBC Hgb Hct MCV RDW Plt Count Lymph % (Auto) [place] % (Auto) [place] # Seg Neutrophils % Seg Neuts % (Manual) Lymphocytes % (Manual) Monocytes % (Manual) Basophils % (Manual) Nucleated RBC % Seg Neutrophils # Seg Neutrophils # Man Lymphocytes # (Manual) Monocytes # (Manual) Eosinophils # (Manual) Basophils # (Manual) PT INR APTT Heparin Anti-Xa Level POC ABG pH POC ABG pCO2 POC ABG pO2 Sodium Potassium 5.6 H Chloride Carbon Dioxide 11 L BUN 77 H Creatinine 2.7 H Glucose 457 H POC Glucose > 500 H 424 H Calcium 8.0 L Phosphorus Magnesium AST Alkaline Phosphatase Troponin T C-Reactive Protein Total Protein Albumin Triglycerides HDL Cholesterol Lipase Vitamin B12 TSH Urine WBC (Auto) Urine Chloride Urine Total Protein Vancomycin Trough Crossmatch 10/13/16 10/13/16 10/13/16 10:44 11:22 12:20 WBC RBC Hgb Hct MCV RDW Plt Count Lymph % (Auto) [place] % (Auto) [place] # Seg Neutrophils % Seg Neuts % (Manual) Lymphocytes % (Manual) Monocytes % (Manual) Basophils % (Manual) Nucleated RBC % Seg Neutrophils # Seg Neutrophils # Man Lymphocytes # (Manual) Monocytes # (Manual) Eosinophils # (Manual) Basophils # (Manual) PT INR APTT Heparin Anti-Xa Level POC ABG pH POC ABG pCO2 POC ABG pO2 Sodium Potassium 5.4 H Chloride Carbon Dioxide 14 L BUN 72 H Creatinine 2.6 H Glucose 383 H POC Glucose 391 H 313 H Calcium 8.2 L Phosphorus Magnesium AST Alkaline Phosphatase Troponin T C-Reactive Protein Total Protein Albumin Triglycerides HDL Cholesterol Lipase Vitamin B12 TSH Urine WBC (Auto) Urine Chloride Urine Total Protein Vancomycin Trough Crossmatch 10/13/16 10/13/16 10/13/16 13:32 14:44 15:57 WBC RBC Hgb Hct MCV RDW Plt Count Lymph % (Auto) [place] % (Auto) [place] # Seg Neutrophils % Seg Neuts % (Manual) Lymphocytes % (Manual) Monocytes % (Manual) Basophils % (Manual) Nucleated RBC % Seg Neutrophils # Seg Neutrophils # Man Lymphocytes # (Manual) Monocytes # (Manual) Eosinophils # (Manual) Basophils # (Manual) PT INR APTT Heparin Anti-Xa Level POC ABG pH POC ABG pCO2 POC ABG pO2 Sodium Potassium Chloride Carbon Dioxide BUN Creatinine Glucose POC Glucose 296 H 210 H 190 H Calcium Phosphorus Magnesium AST Alkaline Phosphatase Troponin T C-Reactive Protein Total Protein Albumin Triglycerides HDL Cholesterol Lipase Vitamin B12 TSH Urine WBC (Auto) Urine Chloride Urine Total Protein Vancomycin Trough Crossmatch 10/13/16 10/13/16 10/13/16 16:14 16:14 17:17 WBC RBC Hgb Hct MCV RDW Plt Count Lymph % (Auto) [place] % (Auto) [place] # Seg Neutrophils % Seg Neuts % (Manual) Lymphocytes % (Manual) Monocytes % (Manual) Basophils % (Manual) Nucleated RBC % Seg Neutrophils # Seg Neutrophils # Man Lymphocytes # (Manual) Monocytes # (Manual) Eosinophils # (Manual) Basophils # (Manual) PT INR APTT Heparin Anti-Xa Level POC ABG pH POC ABG pCO2 POC ABG pO2 Sodium Potassium Chloride Carbon Dioxide 17 L BUN 58 H Creatinine 1.8 H Glucose 172 H POC Glucose 193 H Calcium 7.7 L Phosphorus Magnesium AST Alkaline Phosphatase Troponin T C-Reactive Protein 10.50 H Total Protein Albumin Triglycerides HDL Cholesterol Lipase Vitamin B12 TSH Urine WBC (Auto) Urine Chloride Urine Total Protein Vancomycin Trough Crossmatch 10/13/16 10/13/16 10/13/16 17:55 18:32 19:41 WBC RBC Hgb Hct MCV RDW Plt Count Lymph % (Auto) [place] % (Auto) [place] # Seg Neutrophils % Seg Neuts % (Manual) Lymphocytes % (Manual) Monocytes % (Manual) Basophils % (Manual) Nucleated RBC % Seg Neutrophils # Seg Neutrophils # Man Lymphocytes # (Manual) Monocytes # (Manual) Eosinophils # (Manual) Basophils # (Manual) PT INR APTT Heparin Anti-Xa Level POC ABG pH POC ABG pCO2 30.6 L POC ABG pO2 218 H Sodium Potassium Chloride Carbon Dioxide BUN Creatinine Glucose POC Glucose 192 H 177 H Calcium Phosphorus Magnesium AST Alkaline Phosphatase Troponin T C-Reactive Protein Total Protein Albumin Triglycerides HDL Cholesterol Lipase Vitamin B12 TSH Urine WBC (Auto) Urine Chloride Urine Total Protein Vancomycin Trough Crossmatch 10/13/16 10/13/16 10/13/16 20:54 22:07 23:13 WBC RBC Hgb Hct MCV RDW Plt Count Lymph % (Auto) [place] % (Auto) [place] # Seg Neutrophils % Seg Neuts % (Manual) Lymphocytes % (Manual) Monocytes % (Manual) Basophils % (Manual) Nucleated RBC % Seg Neutrophils # Seg Neutrophils # Man Lymphocytes # (Manual) Monocytes # (Manual) Eosinophils # (Manual) Basophils # (Manual) PT INR APTT Heparin Anti-Xa Level POC ABG pH POC ABG pCO2 POC ABG pO2 Sodium Potassium Chloride Carbon Dioxide BUN Creatinine Glucose POC Glucose 178 H 160 H 168 H Calcium Phosphorus Magnesium AST Alkaline Phosphatase Troponin T C-Reactive Protein Total Protein Albumin Triglycerides HDL Cholesterol Lipase Vitamin B12 TSH Urine WBC (Auto) Urine Chloride Urine Total Protein Vancomycin Trough Crossmatch 10/13/16 10/13/16 10/14/16 23:25 Unknown 00:21 WBC RBC Hgb Hct MCV RDW Plt Count Lymph % (Auto) [place] % (Auto) [place] # Seg Neutrophils % Seg Neuts % (Manual) Lymphocytes % (Manual) Monocytes % (Manual) Basophils % (Manual) Nucleated RBC % Seg Neutrophils # Seg Neutrophils # Man Lymphocytes # (Manual) Monocytes # (Manual) Eosinophils # (Manual) Basophils # (Manual) PT INR APTT Heparin Anti-Xa Level POC ABG pH POC ABG pCO2 POC ABG pO2 Sodium 148 H Potassium Chloride 114.6 H Carbon Dioxide 17 L BUN 56 H Creatinine 1.6 H Glucose 151 H POC Glucose 171 H Calcium 7.8 L Phosphorus Magnesium AST Alkaline Phosphatase Troponin T C-Reactive Protein Total Protein Albumin Triglycerides HDL Cholesterol Lipase Vitamin B12 TSH Urine WBC (Auto) Urine Chloride 10.0 L Urine Total Protein < 4 L Vancomycin Trough Crossmatch 10/14/16 10/14/16 10/14/16 01:22 02:29 03:30 WBC RBC Hgb Hct MCV RDW Plt Count Lymph % (Auto) [place] % (Auto) [place] # Seg Neutrophils % Seg Neuts % (Manual) Lymphocytes % (Manual) Monocytes % (Manual) Basophils % (Manual) Nucleated RBC % Seg Neutrophils # Seg Neutrophils # Man Lymphocytes # (Manual) Monocytes # (Manual) Eosinophils # (Manual) Basophils # (Manual) PT INR APTT Heparin Anti-Xa Level POC ABG pH POC ABG pCO2 POC ABG pO2 Sodium Potassium Chloride Carbon Dioxide BUN Creatinine Glucose POC Glucose 144 H 136 H 143 H Calcium Phosphorus Magnesium AST Alkaline Phosphatase Troponin T C-Reactive Protein Total Protein Albumin Triglycerides HDL Cholesterol Lipase Vitamin B12 TSH Urine WBC (Auto) Urine Chloride Urine Total Protein Vancomycin Trough Crossmatch 10/14/16 10/14/16 10/14/16 04:28 05:16 05:44 WBC RBC Hgb Hct MCV RDW Plt Count Lymph % (Auto) [place] % (Auto) [place] # Seg Neutrophils % Seg Neuts % (Manual) Lymphocytes % (Manual) Monocytes % (Manual) Basophils % (Manual) Nucleated RBC % Seg Neutrophils # Seg Neutrophils # Man Lymphocytes # (Manual) Monocytes # (Manual) Eosinophils # (Manual) Basophils # (Manual) PT INR APTT Heparin Anti-Xa Level POC ABG pH POC ABG pCO2 28.2 L POC ABG pO2 125 H Sodium Potassium Chloride Carbon Dioxide BUN Creatinine Glucose POC Glucose 133 H 160 H Calcium Phosphorus Magnesium AST Alkaline Phosphatase Troponin T C-Reactive Protein Total Protein Albumin Triglycerides HDL Cholesterol Lipase Vitamin B12 TSH Urine WBC (Auto) Urine Chloride Urine Total Protein Vancomycin Trough Crossmatch 10/14/16 10/14/16 10/14/16 06:12 06:45 07:03 WBC RBC Hgb Hct MCV RDW Plt Count Lymph % (Auto) [place] % (Auto) [place] # Seg Neutrophils % Seg Neuts % (Manual) Lymphocytes % (Manual) Monocytes % (Manual) Basophils % (Manual) Nucleated RBC % Seg Neutrophils # Seg Neutrophils # Man Lymphocytes # (Manual) Monocytes # (Manual) Eosinophils # (Manual) Basophils # (Manual) PT INR APTT Heparin Anti-Xa Level POC ABG pH POC ABG pCO2 POC ABG pO2 Sodium 149 H Potassium Chloride 115.4 H Carbon Dioxide 17 L BUN 45 H Creatinine 1.5 H Glucose 139 H POC Glucose 149 H Calcium 7.4 L Phosphorus 1.0 L D Magnesium AST Alkaline Phosphatase Troponin T C-Reactive Protein Total Protein Albumin Triglycerides HDL Cholesterol Lipase Vitamin B12 TSH Urine WBC (Auto) Urine Chloride Urine Total Protein Vancomycin Trough Crossmatch 10/14/16 10/14/16 10/14/16 07:03 08:02 09:16 WBC RBC Hgb Hct MCV RDW Plt Count Lymph % (Auto) [place] % (Auto) [place] # Seg Neutrophils % Seg Neuts % (Manual) Lymphocytes % (Manual) Monocytes % (Manual) Basophils % (Manual) Nucleated RBC % Seg Neutrophils # Seg Neutrophils # Man Lymphocytes # (Manual) Monocytes # (Manual) Eosinophils # (Manual) Basophils # (Manual) PT INR APTT Heparin Anti-Xa Level POC ABG pH POC ABG pCO2 POC ABG pO2 Sodium Potassium Chloride Carbon Dioxide BUN Creatinine Glucose POC Glucose 156 H 158 H Calcium Phosphorus Magnesium AST Alkaline Phosphatase Troponin T C-Reactive Protein Total Protein Albumin Triglycerides HDL Cholesterol Lipase 738 H Vitamin B12 TSH Urine WBC (Auto) Urine Chloride Urine Total Protein Vancomycin Trough Crossmatch 10/14/16 10/14/16 10/14/16 10:26 11:03 11:57 WBC RBC Hgb Hct MCV RDW Plt Count Lymph % (Auto) [place] % (Auto) [place] # Seg Neutrophils % Seg Neuts % (Manual) Lymphocytes % (Manual) Monocytes % (Manual) Basophils % (Manual) Nucleated RBC % Seg Neutrophils # Seg Neutrophils # Man Lymphocytes # (Manual) Monocytes # (Manual) Eosinophils # (Manual) Basophils # (Manual) PT INR APTT Heparin Anti-Xa Level POC ABG pH 7.198 L POC ABG pCO2 47.5 H POC ABG pO2 Sodium Potassium Chloride Carbon Dioxide BUN Creatinine Glucose POC Glucose 174 H 189 H Calcium Phosphorus Magnesium AST Alkaline Phosphatase Troponin T C-Reactive Protein Total Protein Albumin Triglycerides HDL Cholesterol Lipase Vitamin B12 TSH Urine WBC (Auto) Urine Chloride Urine Total Protein Vancomycin Trough Crossmatch 10/14/16 10/14/16 10/14/16 12:02 12:02 13:11 WBC 13.4 H RBC 3.60 L Hgb Hct MCV 98 H D RDW 13.1 L Plt Count Lymph % (Auto) [place] % (Auto) [place] # Seg Neutrophils % Seg Neuts % (Manual) Lymphocytes % (Manual) Monocytes % (Manual) Basophils % (Manual) Nucleated RBC % Seg Neutrophils # Seg Neutrophils # Man Lymphocytes # (Manual) Monocytes # (Manual) Eosinophils # (Manual) Basophils # (Manual) PT INR APTT Heparin Anti-Xa Level POC ABG pH POC ABG pCO2 POC ABG pO2 Sodium Potassium Chloride 110.7 H Carbon Dioxide 19 L BUN 38 H Creatinine 1.4 H Glucose 182 H POC Glucose 173 H Calcium 7.5 L Phosphorus Magnesium AST Alkaline Phosphatase Troponin T C-Reactive Protein Total Protein Albumin Triglycerides HDL Cholesterol Lipase Vitamin B12 TSH Urine WBC (Auto) Urine Chloride Urine Total Protein Vancomycin Trough Crossmatch 10/14/16 10/14/16 10/14/16 14:24 15:31 16:36 WBC RBC Hgb Hct MCV RDW Plt Count Lymph % (Auto) [place] % (Auto) [place] # Seg Neutrophils % Seg Neuts % (Manual) Lymphocytes % (Manual) Monocytes % (Manual) Basophils % (Manual) Nucleated RBC % Seg Neutrophils # Seg Neutrophils # Man Lymphocytes # (Manual) Monocytes # (Manual) Eosinophils # (Manual) Basophils # (Manual) PT INR APTT Heparin Anti-Xa Level POC ABG pH POC ABG pCO2 POC ABG pO2 Sodium Potassium Chloride Carbon Dioxide BUN Creatinine Glucose POC Glucose 123 H 124 H 156 H Calcium Phosphorus Magnesium AST Alkaline Phosphatase Troponin T C-Reactive Protein Total Protein Albumin Triglycerides HDL Cholesterol Lipase Vitamin B12 TSH Urine WBC (Auto) Urine Chloride Urine Total Protein Vancomycin Trough Crossmatch 10/14/16 10/14/16 10/14/16 17:43 19:00 20:08 WBC RBC Hgb Hct MCV RDW Plt Count Lymph % (Auto) [place] % (Auto) [place] # Seg Neutrophils % Seg Neuts % (Manual) Lymphocytes % (Manual) Monocytes % (Manual) Basophils % (Manual) Nucleated RBC % Seg Neutrophils # Seg Neutrophils # Man Lymphocytes # (Manual) Monocytes # (Manual) Eosinophils # (Manual) Basophils # (Manual) PT INR APTT Heparin Anti-Xa Level POC ABG pH POC ABG pCO2 POC ABG pO2 Sodium Potassium Chloride Carbon Dioxide BUN Creatinine Glucose POC Glucose 154 H 123 H 138 H Calcium Phosphorus Magnesium AST Alkaline Phosphatase Troponin T C-Reactive Protein Total Protein Albumin Triglycerides HDL Cholesterol Lipase Vitamin B12 TSH Urine WBC (Auto) Urine Chloride Urine Total Protein Vancomycin Trough Crossmatch 10/14/16 10/14/16 10/14/16 21:17 22:25 23:37 WBC RBC Hgb Hct MCV RDW Plt Count Lymph % (Auto) [place] % (Auto) [place] # Seg Neutrophils % Seg Neuts % (Manual) Lymphocytes % (Manual) Monocytes % (Manual) Basophils % (Manual) Nucleated RBC % Seg Neutrophils # Seg Neutrophils # Man Lymphocytes # (Manual) Monocytes # (Manual) Eosinophils # (Manual) Basophils # (Manual) PT INR APTT Heparin Anti-Xa Level POC ABG pH POC ABG pCO2 POC ABG pO2 Sodium Potassium Chloride Carbon Dioxide BUN Creatinine Glucose POC Glucose 148 H 132 H 137 H Calcium Phosphorus Magnesium AST Alkaline Phosphatase Troponin T C-Reactive Protein Total Protein Albumin Triglycerides HDL Cholesterol Lipase Vitamin B12 TSH Urine WBC (Auto) Urine Chloride Urine Total Protein Vancomycin Trough Crossmatch 10/15/16 10/15/16 10/15/16 00:49 01:53 03:06 WBC RBC Hgb Hct MCV RDW Plt Count Lymph % (Auto) [place] % (Auto) [place] # Seg Neutrophils % Seg Neuts % (Manual) Lymphocytes % (Manual) Monocytes % (Manual) Basophils % (Manual) Nucleated RBC % Seg Neutrophils # Seg Neutrophils # Man Lymphocytes # (Manual) Monocytes # (Manual) Eosinophils # (Manual) Basophils # (Manual) PT INR APTT Heparin Anti-Xa Level POC ABG pH POC ABG pCO2 POC ABG pO2 Sodium Potassium Chloride Carbon Dioxide BUN Creatinine Glucose POC Glucose 132 H 134 H 134 H Calcium Phosphorus Magnesium AST Alkaline Phosphatase Troponin T C-Reactive Protein Total Protein Albumin Triglycerides HDL Cholesterol Lipase Vitamin B12 TSH Urine WBC (Auto) Urine Chloride Urine Total Protein Vancomycin Trough Crossmatch 10/15/16 10/15/16 10/15/16 04:40 04:46 06:21 WBC RBC Hgb Hct MCV RDW Plt Count Lymph % (Auto) [place] % (Auto) [place] # Seg Neutrophils % Seg Neuts % (Manual) Lymphocytes % (Manual) Monocytes % (Manual) Basophils % (Manual) Nucleated RBC % Seg Neutrophils # Seg Neutrophils # Man Lymphocytes # (Manual) Monocytes # (Manual) Eosinophils # (Manual) Basophils # (Manual) PT INR APTT Heparin Anti-Xa Level POC ABG pH POC ABG pCO2 30.7 L POC ABG pO2 108 H Sodium Potassium Chloride 109.0 H Carbon Dioxide 17 L BUN 27 H Creatinine Glucose 124 H POC Glucose 160 H Calcium 7.5 L Phosphorus Magnesium AST 79 H Alkaline Phosphatase Troponin T C-Reactive Protein Total Protein 5.5 L Albumin 3.0 L Triglycerides HDL Cholesterol Lipase Vitamin B12 TSH Urine WBC (Auto) Urine Chloride Urine Total Protein Vancomycin Trough Crossmatch 10/15/16 10/15/16 10/15/16 07:12 08:01 09:03 WBC RBC Hgb Hct MCV RDW Plt Count Lymph % (Auto) [place] % (Auto) [place] # Seg Neutrophils % Seg Neuts % (Manual) Lymphocytes % (Manual) Monocytes % (Manual) Basophils % (Manual) Nucleated RBC % Seg Neutrophils # Seg Neutrophils # Man Lymphocytes # (Manual) Monocytes # (Manual) Eosinophils # (Manual) Basophils # (Manual) PT INR APTT Heparin Anti-Xa Level POC ABG pH POC ABG pCO2 POC ABG pO2 Sodium Potassium Chloride Carbon Dioxide BUN Creatinine Glucose POC Glucose 179 H 187 H 165 H Calcium Phosphorus Magnesium AST Alkaline Phosphatase Troponin T C-Reactive Protein Total Protein Albumin Triglycerides HDL Cholesterol Lipase Vitamin B12 TSH Urine WBC (Auto) Urine Chloride Urine Total Protein Vancomycin Trough Crossmatch 10/15/16 10/15/16 10/15/16 10:06 10:06 10:07 WBC 12.1 H RBC 3.01 L Hgb 9.7 L Hct 29.6 L MCV 98 H RDW Plt Count 129 L Lymph % (Auto) [place] % (Auto) [place] # Seg Neutrophils % Seg Neuts % (Manual) Lymphocytes % (Manual) Monocytes % (Manual) Basophils % (Manual) Nucleated RBC % Seg Neutrophils # Seg Neutrophils # Man Lymphocytes # (Manual) Monocytes # (Manual) Eosinophils # (Manual) Basophils # (Manual) PT INR APTT Heparin Anti-Xa Level POC ABG pH POC ABG pCO2 POC ABG pO2 Sodium Potassium 3.2 L D Chloride 109.6 H Carbon Dioxide 18 L BUN 22 H Creatinine Glucose 127 H POC Glucose 147 H Calcium 7.0 L Phosphorus Magnesium AST Alkaline Phosphatase Troponin T C-Reactive Protein Total Protein Albumin Triglycerides HDL Cholesterol Lipase Vitamin B12 TSH Urine WBC (Auto) Urine Chloride Urine Total Protein Vancomycin Trough Crossmatch 10/15/16 10/15/16 10/15/16 11:05 11:06 11:57 WBC RBC Hgb Hct MCV RDW Plt Count Lymph % (Auto) [place] % (Auto) [place] # Seg Neutrophils % Seg Neuts % (Manual) Lymphocytes % (Manual) Monocytes % (Manual) Basophils % (Manual) Nucleated RBC % Seg Neutrophils # Seg Neutrophils # Man Lymphocytes # (Manual) Monocytes # (Manual) Eosinophils # (Manual) Basophils # (Manual) PT INR APTT Heparin Anti-Xa Level POC ABG pH 7.305 L POC ABG pCO2 POC ABG pO2 Sodium Potassium Chloride Carbon Dioxide BUN Creatinine Glucose POC Glucose 145 H Calcium Phosphorus Magnesium AST Alkaline Phosphatase Troponin T C-Reactive Protein Total Protein Albumin Triglycerides HDL Cholesterol Lipase Vitamin B12 TSH Urine WBC (Auto) 7.0 H Urine Chloride Urine Total Protein Vancomycin Trough Crossmatch 02/10/15/16 10/15/16 12:04 13:59 15:24 WBC RBC Hgb Hct MCV RDW Plt Count Lymph % (Auto) [place] % (Auto) [place] # Seg Neutrophils % Seg Neuts % (Manual) Lymphocytes % (Manual) Monocytes % (Manual) Basophils % (Manual) Nucleated RBC % Seg Neutrophils # Seg Neutrophils # Man Lymphocytes # (Manual) Monocytes # (Manual) Eosinophils # (Manual) Basophils # (Manual) PT INR APTT Heparin Anti-Xa Level POC ABG pH POC ABG pCO2 POC ABG pO2 Sodium Potassium Chloride Carbon Dioxide BUN Creatinine Glucose POC Glucose 123 H 147 H 153 H Calcium Phosphorus Magnesium AST Alkaline Phosphatase Troponin T C-Reactive Protein Total Protein Albumin Triglycerides HDL Cholesterol Lipase Vitamin B12 TSH Urine WBC (Auto) Urine Chloride Urine Total Protein Vancomycin Trough Crossmatch 10/15/16 10/15/16 10/15/16 16:30 17:34 18:30 WBC RBC Hgb Hct MCV RDW Plt Count Lymph % (Auto) [place] % (Auto) [place] # Seg Neutrophils % Seg Neuts % (Manual) Lymphocytes % (Manual) Monocytes % (Manual) Basophils % (Manual) Nucleated RBC % Seg Neutrophils # Seg Neutrophils # Man Lymphocytes # (Manual) Monocytes # (Manual) Eosinophils # (Manual) Basophils # (Manual) PT INR APTT Heparin Anti-Xa Level POC ABG pH POC ABG pCO2 POC ABG pO2 Sodium Potassium Chloride Carbon Dioxide BUN Creatinine Glucose POC Glucose 223 H 236 H 164 H Calcium Phosphorus Magnesium AST Alkaline Phosphatase Troponin T C-Reactive Protein Total Protein Albumin Triglycerides HDL Cholesterol Lipase Vitamin B12 TSH Urine WBC (Auto) Urine Chloride Urine Total Protein Vancomycin Trough Crossmatch 10/15/16 10/15/16 10/15/16 19:14 20:31 21:23 WBC RBC Hgb Hct MCV RDW Plt Count Lymph % (Auto) [place] % (Auto) [place] # Seg Neutrophils % Seg Neuts % (Manual) Lymphocytes % (Manual) Monocytes % (Manual) Basophils % (Manual) Nucleated RBC % Seg Neutrophils # Seg Neutrophils # Man Lymphocytes # (Manual) Monocytes # (Manual) Eosinophils # (Manual) Basophils # (Manual) PT INR APTT Heparin Anti-Xa Level POC ABG pH POC ABG pCO2 POC ABG pO2 Sodium Potassium Chloride Carbon Dioxide BUN Creatinine Glucose POC Glucose 138 H 158 H 158 H Calcium Phosphorus Magnesium AST Alkaline Phosphatase Troponin T C-Reactive Protein Total Protein Albumin Triglycerides HDL Cholesterol Lipase Vitamin B12 TSH Urine WBC (Auto) Urine Chloride Urine Total Protein Vancomycin Trough Crossmatch 10/15/16 10/15/16 10/16/16 22:04 22:57 00:11 WBC RBC Hgb Hct MCV RDW Plt Count Lymph % (Auto) [place] % (Auto) [place] # Seg Neutrophils % Seg Neuts % (Manual) Lymphocytes % (Manual) Monocytes % (Manual) Basophils % (Manual) Nucleated RBC % Seg Neutrophils # Seg Neutrophils # Man Lymphocytes # (Manual) Monocytes # (Manual) Eosinophils # (Manual) Basophils # (Manual) PT INR APTT Heparin Anti-Xa Level POC ABG pH POC ABG pCO2 POC ABG pO2 Sodium Potassium Chloride Carbon Dioxide BUN Creatinine Glucose POC Glucose 168 H 213 H 166 H Calcium Phosphorus Magnesium AST Alkaline Phosphatase Troponin T C-Reactive Protein Total Protein Albumin Triglycerides HDL Cholesterol Lipase Vitamin B12 TSH Urine WBC (Auto) Urine Chloride Urine Total Protein Vancomycin Trough Crossmatch 10/16/16 10/16/16 10/16/16 01:16 02:32 03:38 WBC RBC Hgb Hct MCV RDW Plt Count Lymph % (Auto) [place] % (Auto) [place] # Seg Neutrophils % Seg Neuts % (Manual) Lymphocytes % (Manual) Monocytes % (Manual) Basophils % (Manual) Nucleated RBC % Seg Neutrophils # Seg Neutrophils # Man Lymphocytes # (Manual) Monocytes # (Manual) Eosinophils # (Manual) Basophils # (Manual) PT INR APTT Heparin Anti-Xa Level POC ABG pH POC ABG pCO2 POC ABG pO2 Sodium Potassium Chloride Carbon Dioxide BUN Creatinine Glucose POC Glucose 171 H 164 H 147 H Calcium Phosphorus Magnesium AST Alkaline Phosphatase Troponin T C-Reactive Protein Total Protein Albumin Triglycerides HDL Cholesterol Lipase Vitamin B12 TSH Urine WBC (Auto) Urine Chloride Urine Total Protein Vancomycin Trough Crossmatch 10/16/16 10/16/16 10/16/16 04:14 04:14 04:49 WBC RBC Hgb Hct MCV RDW Plt Count Lymph % (Auto) [place] % (Auto) [place] # Seg Neutrophils % Seg Neuts % (Manual) Lymphocytes % (Manual) Monocytes % (Manual) Basophils % (Manual) Nucleated RBC % Seg Neutrophils # Seg Neutrophils # Man Lymphocytes # (Manual) Monocytes # (Manual) Eosinophils # (Manual) Basophils # (Manual) PT INR APTT Heparin Anti-Xa Level POC ABG pH POC ABG pCO2 POC ABG pO2 Sodium 147 H Potassium Chloride 110.9 H Carbon Dioxide 19 L BUN Creatinine Glucose 139 H POC Glucose 144 H Calcium 7.3 L Phosphorus 2.3 L Magnesium AST Alkaline Phosphatase Troponin T C-Reactive Protein Total Protein Albumin Triglycerides HDL Cholesterol Lipase 143 H Vitamin B12 TSH Urine WBC (Auto) Urine Chloride Urine Total Protein Vancomycin Trough Crossmatch 10/16/16 10/16/16 10/16/16 05:03 05:41 05:58 WBC 16.5 H RBC 3.36 L Hgb Hct MCV 98 H RDW 13.1 L Plt Count Lymph % (Auto) 8.5 L [place] % (Auto) 7.6 H [place] # 1.3 H Seg Neutrophils % 83.3 H Seg Neuts % (Manual) Lymphocytes % (Manual) Monocytes % (Manual) Basophils % (Manual) Nucleated RBC % Seg Neutrophils # 13.8 H Seg Neutrophils # Man Lymphocytes # (Manual) Monocytes # (Manual) Eosinophils # (Manual) Basophils # (Manual) PT INR APTT Heparin Anti-Xa Level POC ABG pH POC ABG pCO2 30.7 L POC ABG pO2 128 H Sodium Potassium Chloride Carbon Dioxide BUN Creatinine Glucose POC Glucose 131 H Calcium Phosphorus Magnesium AST Alkaline Phosphatase Troponin T C-Reactive Protein Total Protein Albumin Triglycerides HDL Cholesterol Lipase Vitamin B12 TSH Urine WBC (Auto) Urine Chloride Urine Total Protein Vancomycin Trough Crossmatch 10/16/16 10/16/16 10/16/16 06:32 09:27 09:35 WBC RBC Hgb Hct MCV RDW Plt Count Lymph % (Auto) [place] % (Auto) [place] # Seg Neutrophils % Seg Neuts % (Manual) Lymphocytes % (Manual) Monocytes % (Manual) Basophils % (Manual) Nucleated RBC % Seg Neutrophils # Seg Neutrophils # Man Lymphocytes # (Manual) Monocytes # (Manual) Eosinophils # (Manual) Basophils # (Manual) PT INR APTT Heparin Anti-Xa Level POC ABG pH POC ABG pCO2 32.8 L POC ABG pO2 137 H Sodium Potassium Chloride Carbon Dioxide BUN Creatinine Glucose POC Glucose 121 H 150 H Calcium Phosphorus Magnesium AST Alkaline Phosphatase Troponin T C-Reactive Protein Total Protein Albumin Triglycerides HDL Cholesterol Lipase Vitamin B12 TSH Urine WBC (Auto) Urine Chloride Urine Total Protein Vancomycin Trough Crossmatch 10/16/16 10/16/16 10/16/16 10:47 13:27 14:24 WBC RBC Hgb Hct MCV RDW Plt Count Lymph % (Auto) [place] % (Auto) [place] # Seg Neutrophils % Seg Neuts % (Manual) Lymphocytes % (Manual) Monocytes % (Manual) Basophils % (Manual) Nucleated RBC % Seg Neutrophils # Seg Neutrophils # Man Lymphocytes # (Manual) Monocytes # (Manual) Eosinophils # (Manual) Basophils # (Manual) PT INR APTT Heparin Anti-Xa Level POC ABG pH POC ABG pCO2 POC ABG pO2 Sodium Potassium Chloride Carbon Dioxide BUN Creatinine Glucose POC Glucose 184 H 171 H 174 H Calcium Phosphorus Magnesium AST Alkaline Phosphatase Troponin T C-Reactive Protein Total Protein Albumin Triglycerides HDL Cholesterol Lipase Vitamin B12 TSH Urine WBC (Auto) Urine Chloride Urine Total Protein Vancomycin Trough Crossmatch 10/16/16 10/16/16 10/16/16 15:48 16:26 18:17 WBC RBC Hgb Hct MCV RDW Plt Count Lymph % (Auto) [place] % (Auto) [place] # Seg Neutrophils % Seg Neuts % (Manual) Lymphocytes % (Manual) Monocytes % (Manual) Basophils % (Manual) Nucleated RBC % Seg Neutrophils # Seg Neutrophils # Man Lymphocytes # (Manual) Monocytes # (Manual) Eosinophils # (Manual) Basophils # (Manual) PT INR APTT Heparin Anti-Xa Level POC ABG pH POC ABG pCO2 POC ABG pO2 Sodium Potassium Chloride Carbon Dioxide BUN Creatinine Glucose POC Glucose 205 H 204 H 234 H Calcium Phosphorus Magnesium AST Alkaline Phosphatase Troponin T C-Reactive Protein Total Protein Albumin Triglycerides HDL Cholesterol Lipase Vitamin B12 TSH Urine WBC (Auto) Urine Chloride Urine Total Protein Vancomycin Trough Crossmatch 10/16/16 10/16/16 10/16/16 19:40 20:33 21:36 WBC RBC Hgb Hct MCV RDW Plt Count Lymph % (Auto) [place] % (Auto) [place] # Seg Neutrophils % Seg Neuts % (Manual) Lymphocytes % (Manual) Monocytes % (Manual) Basophils % (Manual) Nucleated RBC % Seg Neutrophils # Seg Neutrophils # Man Lymphocytes # (Manual) Monocytes # (Manual) Eosinophils # (Manual) Basophils # (Manual) PT INR APTT Heparin Anti-Xa Level POC ABG pH POC ABG pCO2 POC ABG pO2 Sodium Potassium Chloride Carbon Dioxide BUN Creatinine Glucose POC Glucose 167 H 153 H 158 H Calcium Phosphorus Magnesium AST Alkaline Phosphatase Troponin T C-Reactive Protein Total Protein Albumin Triglycerides HDL Cholesterol Lipase Vitamin B12 TSH Urine WBC (Auto) Urine Chloride Urine Total Protein Vancomycin Trough Crossmatch 10/16/16 10/16/16 10/17/16 22:54 23:48 00:47 WBC RBC Hgb Hct MCV RDW Plt Count Lymph % (Auto) [place] % (Auto) [place] # Seg Neutrophils % Seg Neuts % (Manual) Lymphocytes % (Manual) Monocytes % (Manual) Basophils % (Manual) Nucleated RBC % Seg Neutrophils # Seg Neutrophils # Man Lymphocytes # (Manual) Monocytes # (Manual) Eosinophils # (Manual) Basophils # (Manual) PT INR APTT Heparin Anti-Xa Level POC ABG pH POC ABG pCO2 POC ABG pO2 Sodium Potassium Chloride Carbon Dioxide BUN Creatinine Glucose POC Glucose 180 H 207 H 196 H Calcium Phosphorus Magnesium AST Alkaline Phosphatase Troponin T C-Reactive Protein Total Protein Albumin Triglycerides HDL Cholesterol Lipase Vitamin B12 TSH Urine WBC (Auto) Urine Chloride Urine Total Protein Vancomycin Trough Crossmatch 10/17/16 10/17/16 10/17/16 01:57 02:49 03:50 WBC RBC Hgb Hct MCV RDW Plt Count Lymph % (Auto) [place] % (Auto) [place] # Seg Neutrophils % Seg Neuts % (Manual) Lymphocytes % (Manual) Monocytes % (Manual) Basophils % (Manual) Nucleated RBC % Seg Neutrophils # Seg Neutrophils # Man Lymphocytes # (Manual) Monocytes # (Manual) Eosinophils # (Manual) Basophils # (Manual) PT INR APTT Heparin Anti-Xa Level POC ABG pH POC ABG pCO2 POC ABG pO2 Sodium Potassium Chloride Carbon Dioxide BUN Creatinine Glucose POC Glucose 180 H 151 H 106 H Calcium Phosphorus Magnesium AST Alkaline Phosphatase Troponin T C-Reactive Protein Total Protein Albumin Triglycerides HDL Cholesterol Lipase Vitamin B12 TSH Urine WBC (Auto) Urine Chloride Urine Total Protein Vancomycin Trough Crossmatch 10/17/16 10/17/16 10/17/16 04:59 06:03 06:35 WBC RBC Hgb Hct MCV RDW Plt Count Lymph % (Auto) [place] % (Auto) [place] # Seg Neutrophils % Seg Neuts % (Manual) Lymphocytes % (Manual) Monocytes % (Manual) Basophils % (Manual) Nucleated RBC % Seg Neutrophils # Seg Neutrophils # Man Lymphocytes # (Manual) Monocytes # (Manual) Eosinophils # (Manual) Basophils # (Manual) PT INR APTT Heparin Anti-Xa Level POC ABG pH 7.453 H POC ABG pCO2 30.1 L POC ABG pO2 111 H Sodium Potassium Chloride Carbon Dioxide BUN Creatinine Glucose POC Glucose 145 H 157 H Calcium Phosphorus Magnesium AST Alkaline Phosphatase Troponin T C-Reactive Protein Total Protein Albumin Triglycerides HDL Cholesterol Lipase Vitamin B12 TSH Urine WBC (Auto) Urine Chloride Urine Total Protein Vancomycin Trough Crossmatch 10/17/16 10/17/16 10/17/16 07:08 07:11 08:01 WBC RBC Hgb Hct MCV RDW Plt Count Lymph % (Auto) [place] % (Auto) [place] # Seg Neutrophils % Seg Neuts % (Manual) Lymphocytes % (Manual) Monocytes % (Manual) Basophils % (Manual) Nucleated RBC % Seg Neutrophils # Seg Neutrophils # Man Lymphocytes # (Manual) Monocytes # (Manual) Eosinophils # (Manual) Basophils # (Manual) PT INR APTT Heparin Anti-Xa Level POC ABG pH POC ABG pCO2 POC ABG pO2 Sodium 147 H Potassium Chloride 113.8 H Carbon Dioxide 19 L BUN Creatinine Glucose 136 H POC Glucose 136 H 152 H Calcium 7.7 L Phosphorus Magnesium AST Alkaline Phosphatase Troponin T C-Reactive Protein Total Protein Albumin Triglycerides HDL Cholesterol Lipase Vitamin B12 TSH Urine WBC (Auto) Urine Chloride Urine Total Protein Vancomycin Trough Crossmatch 10/17/16 10/17/16 10/17/16 08:23 09:17 09:53 WBC 18.1 H RBC 3.01 L Hgb 9.7 L Hct 29.4 L MCV 98 H RDW Plt Count 116 L Lymph % (Auto) [place] % (Auto) [place] # Seg Neutrophils % Seg Neuts % (Manual) 77.0 H Lymphocytes % (Manual) 4.0 L Monocytes % (Manual) 12.0 H Basophils % (Manual) Nucleated RBC % Seg Neutrophils # Seg Neutrophils # Man 13.9 H Lymphocytes # (Manual) 0.7 L Monocytes # (Manual) 2.2 H Eosinophils # (Manual) Basophils # (Manual) PT INR APTT Heparin Anti-Xa Level POC ABG pH POC ABG pCO2 POC ABG pO2 Sodium Potassium Chloride Carbon Dioxide BUN Creatinine Glucose POC Glucose 148 H 137 H Calcium Phosphorus Magnesium AST Alkaline Phosphatase Troponin T C-Reactive Protein Total Protein Albumin Triglycerides HDL Cholesterol Lipase Vitamin B12 TSH Urine WBC (Auto) Urine Chloride Urine Total Protein Vancomycin Trough Crossmatch 10/17/16 10/17/16 10/17/16 11:43 16:07 17:42 WBC RBC Hgb Hct MCV RDW Plt Count Lymph % (Auto) [place] % (Auto) [place] # Seg Neutrophils % Seg Neuts % (Manual) Lymphocytes % (Manual) Monocytes % (Manual) Basophils % (Manual) Nucleated RBC % Seg Neutrophils # Seg Neutrophils # Man Lymphocytes # (Manual) Monocytes # (Manual) Eosinophils # (Manual) Basophils # (Manual) PT 16.4 H INR 1.33 H APTT 38.8 H Heparin Anti-Xa Level POC ABG pH POC ABG pCO2 POC ABG pO2 Sodium Potassium Chloride Carbon Dioxide BUN Creatinine Glucose POC Glucose 179 H 153 H Calcium Phosphorus Magnesium AST Alkaline Phosphatase Troponin T C-Reactive Protein Total Protein Albumin Triglycerides HDL Cholesterol Lipase Vitamin B12 TSH Urine WBC (Auto) Urine Chloride Urine Total Protein Vancomycin Trough Crossmatch 10/17/16 10/18/16 10/18/16 22:54 04:37 05:39 WBC RBC Hgb Hct MCV RDW Plt Count Lymph % (Auto) [place] % (Auto) [place] # Seg Neutrophils % Seg Neuts % (Manual) Lymphocytes % (Manual) Monocytes % (Manual) Basophils % (Manual) Nucleated RBC % Seg Neutrophils # Seg Neutrophils # Man Lymphocytes # (Manual) Monocytes # (Manual) Eosinophils # (Manual) Basophils # (Manual) PT INR APTT Heparin Anti-Xa Level 0.27 L POC ABG pH 7.454 H POC ABG pCO2 30.8 L POC ABG pO2 115 H Sodium Potassium Chloride Carbon Dioxide BUN Creatinine Glucose POC Glucose 69 L Calcium Phosphorus Magnesium AST Alkaline Phosphatase Troponin T C-Reactive Protein Total Protein Albumin Triglycerides HDL Cholesterol Lipase Vitamin B12 TSH Urine WBC (Auto) Urine Chloride Urine Total Protein Vancomycin Trough Crossmatch 10/18/16 10/18/16 10/18/16 06:46 06:46 06:46 WBC 20.5 H RBC 2.62 L Hgb 8.4 L Hct 26.0 L MCV 100 H RDW Plt Count Lymph % (Auto) [place] % (Auto) [place] # Seg Neutrophils % Seg Neuts % (Manual) 75.0 H Lymphocytes % (Manual) 9.0 L Monocytes % (Manual) 14.0 H Basophils % (Manual) Nucleated RBC % Seg Neutrophils # Seg Neutrophils # Man 15.4 H Lymphocytes # (Manual) Monocytes # (Manual) 2.9 H Eosinophils # (Manual) Basophils # (Manual) PT INR APTT Heparin Anti-Xa Level POC ABG pH POC ABG pCO2 POC ABG pO2 Sodium Potassium Chloride 110.6 H Carbon Dioxide BUN Creatinine 1.3 H Glucose 153 H POC Glucose Calcium 8.0 L Phosphorus Magnesium 1.6 L AST Alkaline Phosphatase Troponin T C-Reactive Protein Total Protein Albumin Triglycerides HDL Cholesterol Lipase Vitamin B12 TSH Urine WBC (Auto) Urine Chloride Urine Total Protein Vancomycin Trough Crossmatch 10/18/16 10/18/16 10/18/16 07:30 11:37 17:51 WBC RBC Hgb Hct MCV RDW Plt Count Lymph % (Auto) [place] % (Auto) [place] # Seg Neutrophils % Seg Neuts % (Manual) Lymphocytes % (Manual) Monocytes % (Manual) Basophils % (Manual) Nucleated RBC % Seg Neutrophils # Seg Neutrophils # Man Lymphocytes # (Manual) Monocytes # (Manual) Eosinophils # (Manual) Basophils # (Manual) PT INR APTT Heparin Anti-Xa Level POC ABG pH POC ABG pCO2 POC ABG pO2 Sodium Potassium Chloride Carbon Dioxide BUN Creatinine Glucose POC Glucose 162 H 156 H 164 H Calcium Phosphorus Magnesium AST Alkaline Phosphatase Troponin T C-Reactive Protein Total Protein Albumin Triglycerides HDL Cholesterol Lipase Vitamin B12 TSH Urine WBC (Auto) Urine Chloride Urine Total Protein Vancomycin Trough Crossmatch 10/18/16 10/19/16 10/19/16 23:44 03:59 05:13 WBC 18.2 H RBC 2.76 L Hgb 9.0 L Hct 27.7 L MCV 100 H RDW Plt Count Lymph % (Auto) [place] % (Auto) [place] # Seg Neutrophils % Seg Neuts % (Manual) 76.0 H Lymphocytes % (Manual) 10.0 L Monocytes % (Manual) Basophils % (Manual) Nucleated RBC % Seg Neutrophils # Seg Neutrophils # Man 13.8 H Lymphocytes # (Manual) Monocytes # (Manual) Eosinophils # (Manual) Basophils # (Manual) PT INR APTT Heparin Anti-Xa Level POC ABG pH POC ABG pCO2 32.2 L POC ABG pO2 128 H Sodium Potassium Chloride Carbon Dioxide BUN Creatinine Glucose POC Glucose 278 H Calcium Phosphorus Magnesium AST Alkaline Phosphatase Troponin T C-Reactive Protein Total Protein Albumin Triglycerides HDL Cholesterol Lipase Vitamin B12 TSH Urine WBC (Auto) Urine Chloride Urine Total Protein Vancomycin Trough Crossmatch 10/19/16 10/19/16 10/19/16 06:01 06:30 12:20 WBC RBC Hgb Hct MCV RDW Plt Count Lymph % (Auto) [place] % (Auto) [place] # Seg Neutrophils % Seg Neuts % (Manual) Lymphocytes % (Manual) Monocytes % (Manual) Basophils % (Manual) Nucleated RBC % Seg Neutrophils # Seg Neutrophils # Man Lymphocytes # (Manual) Monocytes # (Manual) Eosinophils # (Manual) Basophils # (Manual) PT INR APTT Heparin Anti-Xa Level POC ABG pH POC ABG pCO2 POC ABG pO2 Sodium Potassium Chloride Carbon Dioxide 18 L BUN Creatinine 1.3 H Glucose 262 H POC Glucose 261 H 349 H Calcium 7.7 L Phosphorus 4.8 H D Magnesium AST Alkaline Phosphatase Troponin T C-Reactive Protein Total Protein Albumin Triglycerides HDL Cholesterol Lipase Vitamin B12 TSH Urine WBC (Auto) Urine Chloride Urine Total Protein Vancomycin Trough Crossmatch 10/19/16 10/20/16 10/20/16 16:48 00:17 05:20 WBC 22.5 H RBC 2.80 L Hgb 8.9 L Hct 28.3 L MCV 101 H RDW Plt Count Lymph % (Auto) [place] % (Auto) [place] # Seg Neutrophils % Seg Neuts % (Manual) Lymphocytes % (Manual) 10.0 L Monocytes % (Manual) Basophils % (Manual) Nucleated RBC % Seg Neutrophils # Seg Neutrophils # Man 13.3 H Lymphocytes # (Manual) Monocytes # (Manual) 1.1 H Eosinophils # (Manual) 0.7 H Basophils # (Manual) PT INR APTT Heparin Anti-Xa Level POC ABG pH POC ABG pCO2 POC ABG pO2 Sodium Potassium Chloride Carbon Dioxide BUN Creatinine Glucose POC Glucose 248 H 346 H Calcium Phosphorus Magnesium AST Alkaline Phosphatase Troponin T C-Reactive Protein Total Protein Albumin Triglycerides HDL Cholesterol Lipase Vitamin B12 TSH Urine WBC (Auto) Urine Chloride Urine Total Protein Vancomycin Trough Crossmatch 10/20/16 10/20/16 10/20/16 05:20 05:20 06:05 WBC RBC Hgb Hct MCV RDW Plt Count Lymph % (Auto) [place] % (Auto) [place] # Seg Neutrophils % Seg Neuts % (Manual) Lymphocytes % (Manual) Monocytes % (Manual) Basophils % (Manual) Nucleated RBC % Seg Neutrophils # Seg Neutrophils # Man Lymphocytes # (Manual) Monocytes # (Manual) Eosinophils # (Manual) Basophils # (Manual) PT INR APTT Heparin Anti-Xa Level 0.20 L POC ABG pH POC ABG pCO2 POC ABG pO2 Sodium Potassium Chloride Carbon Dioxide BUN 20 H Creatinine Glucose 374 H POC Glucose 337 H Calcium 8.3 L Phosphorus Magnesium AST Alkaline Phosphatase Troponin T C-Reactive Protein Total Protein Albumin Triglycerides HDL Cholesterol Lipase Vitamin B12 TSH Urine WBC (Auto) Urine Chloride Urine Total Protein Vancomycin Trough Crossmatch 10/20/16 10/20/16 10/20/16 11:49 13:59 17:56 WBC RBC Hgb Hct MCV RDW Plt Count Lymph % (Auto) [place] % (Auto) [place] # Seg Neutrophils % Seg Neuts % (Manual) Lymphocytes % (Manual) Monocytes % (Manual) Basophils % (Manual) Nucleated RBC % Seg Neutrophils # Seg Neutrophils # Man Lymphocytes # (Manual) Monocytes # (Manual) Eosinophils # (Manual) Basophils # (Manual) PT INR APTT Heparin Anti-Xa Level 2.00 H POC ABG pH POC ABG pCO2 POC ABG pO2 Sodium Potassium Chloride Carbon Dioxide BUN Creatinine Glucose POC Glucose 305 H 362 H Calcium Phosphorus Magnesium AST Alkaline Phosphatase Troponin T C-Reactive Protein Total Protein Albumin Triglycerides HDL Cholesterol Lipase Vitamin B12 TSH Urine WBC (Auto) Urine Chloride Urine Total Protein Vancomycin Trough Crossmatch 10/20/16 10/21/16 10/21/16 23:52 05:00 05:49 WBC 22.9 H RBC 2.49 L Hgb 7.7 L Hct 25.6 L MCV 103 H RDW Plt Count Lymph % (Auto) [place] % (Auto) [place] # Seg Neutrophils % Seg Neuts % (Manual) 94.0 H Lymphocytes % (Manual) 1.0 L Monocytes % (Manual) Basophils % (Manual) Nucleated RBC % Seg Neutrophils # Seg Neutrophils # Man 21.5 H Lymphocytes # (Manual) 0.2 L Monocytes # (Manual) 1.1 H Eosinophils # (Manual) Basophils # (Manual) PT INR APTT Heparin Anti-Xa Level POC ABG pH POC ABG pCO2 POC ABG pO2 Sodium Potassium Chloride Carbon Dioxide BUN Creatinine Glucose POC Glucose 252 H 180 H Calcium Phosphorus Magnesium AST Alkaline Phosphatase Troponin T C-Reactive Protein Total Protein Albumin Triglycerides HDL Cholesterol Lipase Vitamin B12 TSH Urine WBC (Auto) Urine Chloride Urine Total Protein Vancomycin Trough Crossmatch 10/21/16 10/21/16 10/21/16 11:47 11:49 14:10 WBC RBC Hgb Hct MCV RDW Plt Count Lymph % (Auto) [place] % (Auto) [place] # Seg Neutrophils % Seg Neuts % (Manual) Lymphocytes % (Manual) Monocytes % (Manual) Basophils % (Manual) Nucleated RBC % Seg Neutrophils # Seg Neutrophils # Man Lymphocytes # (Manual) Monocytes # (Manual) Eosinophils # (Manual) Basophils # (Manual) PT INR APTT Heparin Anti-Xa Level POC ABG pH POC ABG pCO2 POC ABG pO2 Sodium Potassium Chloride Carbon Dioxide BUN Creatinine Glucose POC Glucose 50 L 56 L 140 H Calcium Phosphorus Magnesium AST Alkaline Phosphatase Troponin T C-Reactive Protein Total Protein Albumin Triglycerides HDL Cholesterol Lipase Vitamin B12 TSH Urine WBC (Auto) Urine Chloride Urine Total Protein Vancomycin Trough Crossmatch 10/21/16 10/21/16 10/22/16 18:24 Unknown 00:07 WBC RBC Hgb Hct MCV RDW Plt Count Lymph % (Auto) [place] % (Auto) [place] # Seg Neutrophils % Seg Neuts % (Manual) Lymphocytes % (Manual) Monocytes % (Manual) Basophils % (Manual) Nucleated RBC % Seg Neutrophils # Seg Neutrophils # Man Lymphocytes # (Manual) Monocytes # (Manual) Eosinophils # (Manual) Basophils # (Manual) PT INR APTT Heparin Anti-Xa Level POC ABG pH POC ABG pCO2 POC ABG pO2 Sodium 150 H Potassium 3.1 L Chloride 112.4 H Carbon Dioxide BUN 25 H Creatinine 1.4 H Glucose POC Glucose 175 H 218 H Calcium 8.0 L Phosphorus Magnesium AST Alkaline Phosphatase Troponin T C-Reactive Protein Total Protein Albumin Triglycerides HDL Cholesterol Lipase Vitamin B12 TSH Urine WBC (Auto) Urine Chloride Urine Total Protein Vancomycin Trough Crossmatch 10/22/16 10/22/16 10/22/16 04:20 04:20 10:25 WBC 20.8 H RBC 2.37 L Hgb 7.5 L Hct 23.9 L MCV 101 H RDW Plt Count Lymph % (Auto) [place] % (Auto) [place] # Seg Neutrophils % Seg Neuts % (Manual) 89.0 H Lymphocytes % (Manual) 7.0 L Monocytes % (Manual) Basophils % (Manual) Nucleated RBC % Seg Neutrophils # Seg Neutrophils # Man 18.5 H Lymphocytes # (Manual) Monocytes # (Manual) Eosinophils # (Manual) Basophils # (Manual) 0.2 H PT INR APTT Heparin Anti-Xa Level POC ABG pH POC ABG pCO2 POC ABG pO2 Sodium 148 H Potassium 2.9 L* Chloride 109.4 H Carbon Dioxide BUN 26 H Creatinine Glucose 140 H POC Glucose Calcium 7.5 L Phosphorus Magnesium AST Alkaline Phosphatase Troponin T C-Reactive Protein Total Protein Albumin Triglycerides HDL Cholesterol Lipase Vitamin B12 976.8 H TSH Urine WBC (Auto) Urine Chloride Urine Total Protein Vancomycin Trough Crossmatch 10/22/16 10/22/16 10/22/16 10:25 14:50 18:16 WBC RBC Hgb Hct MCV RDW Plt Count Lymph % (Auto) [place] % (Auto) [place] # Seg Neutrophils % Seg Neuts % (Manual) Lymphocytes % (Manual) Monocytes % (Manual) Basophils % (Manual) Nucleated RBC % Seg Neutrophils # Seg Neutrophils # Man Lymphocytes # (Manual) Monocytes # (Manual) Eosinophils # (Manual) Basophils # (Manual) PT INR APTT Heparin Anti-Xa Level POC ABG pH POC ABG pCO2 POC ABG pO2 Sodium Potassium Chloride Carbon Dioxide BUN Creatinine Glucose POC Glucose 193 H Calcium Phosphorus Magnesium AST Alkaline Phosphatase Troponin T C-Reactive Protein Total Protein Albumin Triglycerides HDL Cholesterol Lipase Vitamin B12 TSH 0.143 L 0.162 L Urine WBC (Auto) Urine Chloride Urine Total Protein Vancomycin Trough Crossmatch 10/22/16 10/22/16 10/22/16 20:00 20:00 20:00 WBC 24.1 H RBC 2.58 L Hgb 8.2 L Hct 26.4 L MCV 102 H RDW Plt Count Lymph % (Auto) [place] % (Auto) [place] # Seg Neutrophils % Seg Neuts % (Manual) 74.0 H Lymphocytes % (Manual) 7.0 L Monocytes % (Manual) Basophils % (Manual) Nucleated RBC % Seg Neutrophils # Seg Neutrophils # Man 17.8 H Lymphocytes # (Manual) Monocytes # (Manual) Eosinophils # (Manual) Basophils # (Manual) PT INR APTT Heparin Anti-Xa Level 1.92 H POC ABG pH POC ABG pCO2 POC ABG pO2 Sodium Potassium Chloride Carbon Dioxide BUN Creatinine Glucose POC Glucose Calcium Phosphorus Magnesium AST Alkaline Phosphatase Troponin T C-Reactive Protein Total Protein Albumin Triglycerides HDL Cholesterol Lipase Vitamin B12 TSH Urine WBC (Auto) Urine Chloride Urine Total Protein Vancomycin Trough Crossmatch See Detail 10/23/16 10/23/16 10/23/16 00:21 06:09 12:07 WBC RBC Hgb Hct MCV RDW Plt Count Lymph % (Auto) [place] % (Auto) [place] # Seg Neutrophils % Seg Neuts % (Manual) Lymphocytes % (Manual) Monocytes % (Manual) Basophils % (Manual) Nucleated RBC % Seg Neutrophils # Seg Neutrophils # Man Lymphocytes # (Manual) Monocytes # (Manual) Eosinophils # (Manual) Basophils # (Manual) PT INR APTT Heparin Anti-Xa Level POC ABG pH POC ABG pCO2 POC ABG pO2 Sodium Potassium Chloride Carbon Dioxide BUN Creatinine Glucose POC Glucose 283 H 241 H 340 H Calcium Phosphorus Magnesium AST Alkaline Phosphatase Troponin T C-Reactive Protein Total Protein Albumin Triglycerides HDL Cholesterol Lipase Vitamin B12 TSH Urine WBC (Auto) Urine Chloride Urine Total Protein Vancomycin Trough Crossmatch 10/23/16 10/23/16 10/23/16 14:01 16:00 17:59 WBC RBC Hgb Hct MCV RDW Plt Count Lymph % (Auto) [place] % (Auto) [place] # Seg Neutrophils % Seg Neuts % (Manual) Lymphocytes % (Manual) Monocytes % (Manual) Basophils % (Manual) Nucleated RBC % Seg Neutrophils # Seg Neutrophils # Man Lymphocytes # (Manual) Monocytes # (Manual) Eosinophils # (Manual) Basophils # (Manual) PT INR APTT Heparin Anti-Xa Level 0.19 L POC ABG pH POC ABG pCO2 32.4 L POC ABG pO2 Sodium Potassium Chloride Carbon Dioxide BUN Creatinine Glucose POC Glucose 245 H Calcium Phosphorus Magnesium AST Alkaline Phosphatase Troponin T C-Reactive Protein Total Protein Albumin Triglycerides HDL Cholesterol Lipase Vitamin B12 TSH Urine WBC (Auto) Urine Chloride Urine Total Protein Vancomycin Trough Crossmatch 10/23/16 10/23/16 10/23/16 22:55 Unknown Unknown WBC 22.6 H RBC 3.26 L Hgb Hct MCV RDW 17.1 H Plt Count Lymph % (Auto) [place] % (Auto) [place] # Seg Neutrophils % Seg Neuts % (Manual) Lymphocytes % (Manual) 11.0 L Monocytes % (Manual) Basophils % (Manual) Nucleated RBC % Seg Neutrophils # Seg Neutrophils # Man 14.0 H Lymphocytes # (Manual) Monocytes # (Manual) Eosinophils # (Manual) Basophils # (Manual) PT INR APTT Heparin Anti-Xa Level 0.17 L 0.15 L POC ABG pH POC ABG pCO2 POC ABG pO2 Sodium Potassium Chloride Carbon Dioxide BUN Creatinine Glucose POC Glucose Calcium Phosphorus Magnesium AST Alkaline Phosphatase Troponin T C-Reactive Protein Total Protein Albumin Triglycerides HDL Cholesterol Lipase Vitamin B12 TSH Urine WBC (Auto) Urine Chloride Urine Total Protein Vancomycin Trough Crossmatch 10/23/16 10/24/16 10/24/16 Unknown 00:05 05:30 WBC RBC Hgb Hct MCV RDW Plt Count Lymph % (Auto) [place] % (Auto) [place] # Seg Neutrophils % Seg Neuts % (Manual) Lymphocytes % (Manual) Monocytes % (Manual) Basophils % (Manual) Nucleated RBC % Seg Neutrophils # Seg Neutrophils # Man Lymphocytes # (Manual) Monocytes # (Manual) Eosinophils # (Manual) Basophils # (Manual) PT INR APTT Heparin Anti-Xa Level 0.13 L POC ABG pH POC ABG pCO2 POC ABG pO2 Sodium Potassium Chloride 111.2 H Carbon Dioxide 20 L BUN 25 H Creatinine Glucose 227 H POC Glucose 118 H Calcium 7.1 L Phosphorus Magnesium AST Alkaline Phosphatase Troponin T C-Reactive Protein Total Protein Albumin Triglycerides HDL Cholesterol Lipase Vitamin B12 TSH Urine WBC (Auto) Urine Chloride Urine Total Protein Vancomycin Trough Crossmatch 10/24/16 10/24/16 10/24/16 11:00 11:00 12:06 WBC 17.6 H RBC 2.92 L Hgb 9.2 L Hct 28.3 L MCV RDW 16.9 H Plt Count Lymph % (Auto) [place] % (Auto) [place] # Seg Neutrophils % Seg Neuts % (Manual) Lymphocytes % (Manual) Monocytes % (Manual) Basophils % (Manual) Nucleated RBC % Seg Neutrophils # Seg Neutrophils # Man Lymphocytes # (Manual) Monocytes # (Manual) Eosinophils # (Manual) Basophils # (Manual) PT INR APTT Heparin Anti-Xa Level 0.27 L POC ABG pH POC ABG pCO2 POC ABG pO2 Sodium Potassium Chloride Carbon Dioxide BUN Creatinine Glucose POC Glucose 166 H Calcium Phosphorus Magnesium AST Alkaline Phosphatase Troponin T C-Reactive Protein Total Protein Albumin Triglycerides HDL Cholesterol Lipase Vitamin B12 TSH Urine WBC (Auto) Urine Chloride Urine Total Protein Vancomycin Trough Crossmatch 10/24/16 10/25/16 10/25/16 12:27 00:49 03:30 WBC RBC Hgb 8.8 L Hct 28.1 L MCV RDW Plt Count Lymph % (Auto) [place] % (Auto) [place] # Seg Neutrophils % Seg Neuts % (Manual) Lymphocytes % (Manual) Monocytes % (Manual) Basophils % (Manual) Nucleated RBC % Seg Neutrophils # Seg Neutrophils # Man Lymphocytes # (Manual) Monocytes # (Manual) Eosinophils # (Manual) Basophils # (Manual) PT INR APTT Heparin Anti-Xa Level POC ABG pH POC ABG pCO2 33.9 L POC ABG pO2 Sodium Potassium Chloride Carbon Dioxide BUN Creatinine Glucose POC Glucose 121 H Calcium Phosphorus Magnesium AST Alkaline Phosphatase Troponin T C-Reactive Protein Total Protein Albumin Triglycerides HDL Cholesterol Lipase Vitamin B12 TSH Urine WBC (Auto) Urine Chloride Urine Total Protein Vancomycin Trough Crossmatch 10/25/16 10/25/16 10/25/16 09:49 12:10 19:25 WBC 21.1 H RBC 3.02 L Hgb 9.3 L Hct 28.9 L MCV RDW 16.3 H Plt Count Lymph % (Auto) [place] % (Auto) [place] # Seg Neutrophils % Seg Neuts % (Manual) 81.0 H Lymphocytes % (Manual) 9.0 L Monocytes % (Manual) Basophils % (Manual) Nucleated RBC % Seg Neutrophils # Seg Neutrophils # Man 17.1 H Lymphocytes # (Manual) Monocytes # (Manual) Eosinophils # (Manual) Basophils # (Manual) PT INR APTT Heparin Anti-Xa Level POC ABG pH POC ABG pCO2 POC ABG pO2 Sodium Potassium Chloride Carbon Dioxide BUN Creatinine Glucose POC Glucose 158 H 151 H Calcium Phosphorus Magnesium AST Alkaline Phosphatase Troponin T C-Reactive Protein Total Protein Albumin Triglycerides HDL Cholesterol Lipase Vitamin B12 TSH Urine WBC (Auto) Urine Chloride Urine Total Protein Vancomycin Trough Crossmatch 10/26/16 10/26/16 10/26/16 00:20 01:09 05:02 WBC 22.2 H RBC 2.89 L Hgb 8.7 L Hct 27.8 L MCV RDW 16.4 H Plt Count Lymph % (Auto) [place] % (Auto) [place] # Seg Neutrophils % Seg Neuts % (Manual) Lymphocytes % (Manual) Monocytes % (Manual) Basophils % (Manual) Nucleated RBC % Seg Neutrophils # Seg Neutrophils # Man Lymphocytes # (Manual) Monocytes # (Manual) Eosinophils # (Manual) Basophils # (Manual) PT INR APTT Heparin Anti-Xa Level POC ABG pH POC ABG pCO2 POC ABG pO2 Sodium Potassium Chloride Carbon Dioxide BUN Creatinine Glucose POC Glucose 44 L 112 H Calcium Phosphorus Magnesium AST Alkaline Phosphatase Troponin T C-Reactive Protein Total Protein Albumin Triglycerides HDL Cholesterol Lipase Vitamin B12 TSH Urine WBC (Auto) Urine Chloride Urine Total Protein Vancomycin Trough Crossmatch 10/26/16 10/26/16 10/26/16 05:02 12:11 12:14 WBC RBC Hgb Hct MCV RDW Plt Count Lymph % (Auto) [place] % (Auto) [place] # Seg Neutrophils % Seg Neuts % (Manual) Lymphocytes % (Manual) Monocytes % (Manual) Basophils % (Manual) Nucleated RBC % Seg Neutrophils # Seg Neutrophils # Man Lymphocytes # (Manual) Monocytes # (Manual) Eosinophils # (Manual) Basophils # (Manual) PT INR APTT Heparin Anti-Xa Level POC ABG pH POC ABG pCO2 32.0 L POC ABG pO2 33 L Sodium Potassium 3.2 L D Chloride Carbon Dioxide 20 L BUN 24 H Creatinine Glucose 104 H POC Glucose 194 H Calcium 7.7 L Phosphorus Magnesium AST Alkaline Phosphatase Troponin T C-Reactive Protein Total Protein Albumin Triglycerides HDL Cholesterol Lipase Vitamin B12 TSH Urine WBC (Auto) Urine Chloride Urine Total Protein Vancomycin Trough Crossmatch 10/26/16 10/26/16 10/27/16 15:28 17:23 00:04 WBC RBC Hgb Hct MCV RDW Plt Count Lymph % (Auto) [place] % (Auto) [place] # Seg Neutrophils % Seg Neuts % (Manual) Lymphocytes % (Manual) Monocytes % (Manual) Basophils % (Manual) Nucleated RBC % Seg Neutrophils # Seg Neutrophils # Man Lymphocytes # (Manual) Monocytes # (Manual) Eosinophils # (Manual) Basophils # (Manual) PT INR APTT Heparin Anti-Xa Level POC ABG pH POC ABG pCO2 33.7 L POC ABG pO2 Sodium Potassium Chloride Carbon Dioxide BUN Creatinine Glucose POC Glucose 181 H 230 H Calcium Phosphorus Magnesium AST Alkaline Phosphatase Troponin T C-Reactive Protein Total Protein Albumin Triglycerides HDL Cholesterol Lipase Vitamin B12 TSH Urine WBC (Auto) Urine Chloride Urine Total Protein Vancomycin Trough Crossmatch 10/27/16 10/27/16 10/27/16 05:15 05:15 05:38 WBC 25.5 H RBC 3.07 L Hgb 9.4 L Hct 30.1 L MCV 98 H RDW 16.4 H Plt Count 527 H Lymph % (Auto) [place] % (Auto) [place] # Seg Neutrophils % Seg Neuts % (Manual) Lymphocytes % (Manual) Monocytes % (Manual) Basophils % (Manual) Nucleated RBC % Seg Neutrophils # Seg Neutrophils # Man Lymphocytes # (Manual) Monocytes # (Manual) Eosinophils # (Manual) Basophils # (Manual) PT INR APTT Heparin Anti-Xa Level POC ABG pH POC ABG pCO2 POC ABG pO2 Sodium Potassium Chloride Carbon Dioxide 19 L BUN 23 H Creatinine Glucose 160 H POC Glucose 168 H Calcium 8.0 L Phosphorus Magnesium AST Alkaline Phosphatase Troponin T C-Reactive Protein Total Protein Albumin Triglycerides HDL Cholesterol Lipase Vitamin B12 TSH Urine WBC (Auto) Urine Chloride Urine Total Protein Vancomycin Trough Crossmatch 10/27/16 10/27/16 10/27/16 11:59 18:35 23:48 WBC RBC Hgb Hct MCV RDW Plt Count Lymph % (Auto) [place] % (Auto) [place] # Seg Neutrophils % Seg Neuts % (Manual) Lymphocytes % (Manual) Monocytes % (Manual) Basophils % (Manual) Nucleated RBC % Seg Neutrophils # Seg Neutrophils # Man Lymphocytes # (Manual) Monocytes # (Manual) Eosinophils # (Manual) Basophils # (Manual) PT INR APTT Heparin Anti-Xa Level POC ABG pH POC ABG pCO2 POC ABG pO2 Sodium Potassium Chloride Carbon Dioxide BUN Creatinine Glucose POC Glucose 197 H 318 H 316 H Calcium Phosphorus Magnesium AST Alkaline Phosphatase Troponin T C-Reactive Protein Total Protein Albumin Triglycerides HDL Cholesterol Lipase Vitamin B12 TSH Urine WBC (Auto) Urine Chloride Urine Total Protein Vancomycin Trough Crossmatch 10/28/16 10/28/16 10/28/16 03:13 04:10 04:10 WBC 18.8 H RBC 2.64 L Hgb 8.1 L Hct 26.1 L MCV 99 H RDW 16.2 H Plt Count 544 H Lymph % (Auto) [place] % (Auto) [place] # Seg Neutrophils % Seg Neuts % (Manual) Lymphocytes % (Manual) Monocytes % (Manual) Basophils % (Manual) Nucleated RBC % Seg Neutrophils # Seg Neutrophils # Man Lymphocytes # (Manual) Monocytes # (Manual) Eosinophils # (Manual) Basophils # (Manual) PT INR APTT Heparin Anti-Xa Level POC ABG pH POC ABG pCO2 POC ABG pO2 Sodium Potassium Chloride Carbon Dioxide 21 L BUN 24 H Creatinine Glucose 302 H POC Glucose 304 H Calcium 7.7 L Phosphorus Magnesium AST Alkaline Phosphatase Troponin T C-Reactive Protein Total Protein Albumin Triglycerides HDL Cholesterol Lipase Vitamin B12 TSH Urine WBC (Auto) Urine Chloride Urine Total Protein Vancomycin Trough Crossmatch 10/28/16 10/28/16 10/28/16 04:10 12:36 18:27 WBC RBC Hgb Hct MCV RDW Plt Count Lymph % (Auto) [place] % (Auto) [place] # Seg Neutrophils % Seg Neuts % (Manual) Lymphocytes % (Manual) Monocytes % (Manual) Basophils % (Manual) Nucleated RBC % Seg Neutrophils # Seg Neutrophils # Man Lymphocytes # (Manual) Monocytes # (Manual) Eosinophils # (Manual) Basophils # (Manual) PT INR APTT Heparin Anti-Xa Level 0.20 L POC ABG pH POC ABG pCO2 POC ABG pO2 Sodium Potassium Chloride Carbon Dioxide BUN Creatinine Glucose POC Glucose 205 H 339 H Calcium Phosphorus Magnesium AST Alkaline Phosphatase Troponin T C-Reactive Protein Total Protein Albumin Triglycerides HDL Cholesterol Lipase Vitamin B12 TSH Urine WBC (Auto) Urine Chloride Urine Total Protein Vancomycin Trough Crossmatch 10/29/16 10/29/16 10/29/16 01:05 06:19 09:30 WBC 20.3 H RBC 2.80 L Hgb 8.5 L Hct 26.7 L MCV RDW 15.4 H Plt Count 571 H Lymph % (Auto) [place] % (Auto) [place] # Seg Neutrophils % Seg Neuts % (Manual) 75.0 H Lymphocytes % (Manual) 4.0 L Monocytes % (Manual) Basophils % (Manual) Nucleated RBC % Seg Neutrophils # Seg Neutrophils # Man 15.2 H Lymphocytes # (Manual) 0.8 L Monocytes # (Manual) Eosinophils # (Manual) Basophils # (Manual) PT INR APTT Heparin Anti-Xa Level POC ABG pH POC ABG pCO2 POC ABG pO2 Sodium Potassium Chloride Carbon Dioxide BUN Creatinine Glucose POC Glucose 275 H 179 H Calcium Phosphorus Magnesium AST Alkaline Phosphatase Troponin T C-Reactive Protein Total Protein Albumin Triglycerides HDL Cholesterol Lipase Vitamin B12 TSH Urine WBC (Auto) Urine Chloride Urine Total Protein Vancomycin Trough Crossmatch 10/29/16 10/29/16 10/29/16 11:46 15:18 17:55 WBC RBC Hgb Hct MCV RDW Plt Count Lymph % (Auto) [place] % (Auto) [place] # Seg Neutrophils % Seg Neuts % (Manual) Lymphocytes % (Manual) Monocytes % (Manual) Basophils % (Manual) Nucleated RBC % Seg Neutrophils # Seg Neutrophils # Man Lymphocytes # (Manual) Monocytes # (Manual) Eosinophils # (Manual) Basophils # (Manual) PT INR APTT Heparin Anti-Xa Level 1.15 H POC ABG pH POC ABG pCO2 POC ABG pO2 Sodium Potassium Chloride Carbon Dioxide BUN Creatinine Glucose POC Glucose 122 H 255 H Calcium Phosphorus Magnesium AST Alkaline Phosphatase Troponin T C-Reactive Protein Total Protein Albumin Triglycerides HDL Cholesterol Lipase Vitamin B12 TSH Urine WBC (Auto) Urine Chloride Urine Total Protein Vancomycin Trough Crossmatch 10/30/16 10/30/16 10/30/16 00:10 05:30 05:30 WBC 19.8 H RBC 2.51 L Hgb 7.7 L Hct 24.1 L MCV RDW 15.5 H Plt Count 534 H Lymph % (Auto) [place] % (Auto) [place] # Seg Neutrophils % Seg Neuts % (Manual) Lymphocytes % (Manual) Monocytes % (Manual) Basophils % (Manual) Nucleated RBC % Seg Neutrophils # Seg Neutrophils # Man Lymphocytes # (Manual) Monocytes # (Manual) Eosinophils # (Manual) Basophils # (Manual) PT INR APTT Heparin Anti-Xa Level POC ABG pH POC ABG pCO2 POC ABG pO2 Sodium Potassium Chloride Carbon Dioxide BUN Creatinine Glucose 211 H POC Glucose 202 H Calcium 7.4 L Phosphorus Magnesium AST Alkaline Phosphatase Troponin T C-Reactive Protein Total Protein Albumin Triglycerides HDL Cholesterol Lipase Vitamin B12 TSH Urine WBC (Auto) Urine Chloride Urine Total Protein Vancomycin Trough Crossmatch 10/30/16 10/30/16 10/30/16 06:32 12:51 17:47 WBC RBC Hgb Hct MCV RDW Plt Count Lymph % (Auto) [place] % (Auto) [place] # Seg Neutrophils % Seg Neuts % (Manual) Lymphocytes % (Manual) Monocytes % (Manual) Basophils % (Manual) Nucleated RBC % Seg Neutrophils # Seg Neutrophils # Man Lymphocytes # (Manual) Monocytes # (Manual) Eosinophils # (Manual) Basophils # (Manual) PT INR APTT Heparin Anti-Xa Level POC ABG pH POC ABG pCO2 POC ABG pO2 Sodium Potassium Chloride Carbon Dioxide BUN Creatinine Glucose POC Glucose 207 H 218 H 169 H Calcium Phosphorus Magnesium AST Alkaline Phosphatase Troponin T C-Reactive Protein Total Protein Albumin Triglycerides HDL Cholesterol Lipase Vitamin B12 TSH Urine WBC (Auto) Urine Chloride Urine Total Protein Vancomycin Trough Crossmatch 10/30/16 10/31/16 10/31/16 23:59 05:25 11:21 WBC RBC Hgb Hct MCV RDW Plt Count Lymph % (Auto) [place] % (Auto) [place] # Seg Neutrophils % Seg Neuts % (Manual) Lymphocytes % (Manual) Monocytes % (Manual) Basophils % (Manual) Nucleated RBC % Seg Neutrophils # Seg Neutrophils # Man Lymphocytes # (Manual) Monocytes # (Manual) Eosinophils # (Manual) Basophils # (Manual) PT INR APTT Heparin Anti-Xa Level POC ABG pH POC ABG pCO2 POC ABG pO2 Sodium Potassium Chloride Carbon Dioxide BUN Creatinine Glucose POC Glucose 138 H 127 H 132 H Calcium Phosphorus Magnesium AST Alkaline Phosphatase Troponin T C-Reactive Protein Total Protein Albumin Triglycerides HDL Cholesterol Lipase Vitamin B12 TSH Urine WBC (Auto) Urine Chloride Urine Total Protein Vancomycin Trough Crossmatch 10/31/16 10/31/16 11/01/16 17:07 23:54 05:47 WBC RBC Hgb Hct MCV RDW Plt Count Lymph % (Auto) [place] % (Auto) [place] # Seg Neutrophils % Seg Neuts % (Manual) Lymphocytes % (Manual) Monocytes % (Manual) Basophils % (Manual) Nucleated RBC % Seg Neutrophils # Seg Neutrophils # Man Lymphocytes # (Manual) Monocytes # (Manual) Eosinophils # (Manual) Basophils # (Manual) PT INR APTT Heparin Anti-Xa Level POC ABG pH POC ABG pCO2 POC ABG pO2 Sodium Potassium Chloride Carbon Dioxide BUN Creatinine Glucose POC Glucose 138 H 153 H 150 H Calcium Phosphorus Magnesium AST Alkaline Phosphatase Troponin T C-Reactive Protein Total Protein Albumin Triglycerides HDL Cholesterol Lipase Vitamin B12 TSH Urine WBC (Auto) Urine Chloride Urine Total Protein Vancomycin Trough Crossmatch 11/01/16 11/01/16 11/01/16 06:33 06:33 12:16 WBC 19.2 H RBC 2.51 L Hgb 7.9 L Hct 24.8 L MCV 99 H D RDW 16.1 H Plt Count 569 H Lymph % (Auto) [place] % (Auto) [place] # Seg Neutrophils % Seg Neuts % (Manual) Lymphocytes % (Manual) Monocytes % (Manual) Basophils % (Manual) Nucleated RBC % Seg Neutrophils # Seg Neutrophils # Man Lymphocytes # (Manual) Monocytes # (Manual) Eosinophils # (Manual) Basophils # (Manual) PT INR APTT Heparin Anti-Xa Level POC ABG pH POC ABG pCO2 POC ABG pO2 Sodium Potassium 3.5 L Chloride Carbon Dioxide 21 L BUN Creatinine Glucose 137 H POC Glucose 125 H Calcium 7.7 L Phosphorus Magnesium AST Alkaline Phosphatase 148 H Troponin T C-Reactive Protein Total Protein 6.2 L Albumin 2.0 L Triglycerides HDL Cholesterol Lipase Vitamin B12 TSH Urine WBC (Auto) Urine Chloride Urine Total Protein Vancomycin Trough Crossmatch 11/01/16 11/02/16 11/02/16 17:37 00:05 04:15 WBC RBC Hgb Hct MCV RDW Plt Count Lymph % (Auto) [place] % (Auto) [place] # Seg Neutrophils % Seg Neuts % (Manual) Lymphocytes % (Manual) Monocytes % (Manual) Basophils % (Manual) Nucleated RBC % Seg Neutrophils # Seg Neutrophils # Man Lymphocytes # (Manual) Monocytes # (Manual) Eosinophils # (Manual) Basophils # (Manual) PT INR APTT Heparin Anti-Xa Level < 0.10 L POC ABG pH POC ABG pCO2 POC ABG pO2 Sodium Potassium 3.2 L Chloride Carbon Dioxide BUN 6 L Creatinine Glucose 135 H POC Glucose 164 H Calcium 7.5 L Phosphorus Magnesium AST Alkaline Phosphatase 132 H Troponin T C-Reactive Protein Total Protein 6.2 L Albumin 1.8 L Triglycerides HDL Cholesterol Lipase Vitamin B12 TSH Urine WBC (Auto) Urine Chloride Urine Total Protein Vancomycin Trough Crossmatch 11/02/16 11/02/16 11/02/16 04:15 05:54 12:15 WBC 17.7 H RBC 2.43 L Hgb 7.6 L Hct 23.5 L MCV RDW 15.9 H Plt Count 502 H Lymph % (Auto) [place] % (Auto) [place] # Seg Neutrophils % Seg Neuts % (Manual) 84.0 H Lymphocytes % (Manual) 11.0 L Monocytes % (Manual) Basophils % (Manual) Nucleated RBC % 1.0 H Seg Neutrophils # Seg Neutrophils # Man 14.9 H Lymphocytes # (Manual) Monocytes # (Manual) Eosinophils # (Manual) Basophils # (Manual) PT INR APTT Heparin Anti-Xa Level POC ABG pH POC ABG pCO2 POC ABG pO2 Sodium Potassium Chloride Carbon Dioxide BUN Creatinine Glucose POC Glucose 152 H 137 H Calcium Phosphorus Magnesium AST Alkaline Phosphatase Troponin T C-Reactive Protein Total Protein Albumin Triglycerides HDL Cholesterol Lipase Vitamin B12 TSH Urine WBC (Auto) Urine Chloride Urine Total Protein Vancomycin Trough Crossmatch 11/02/16 11/03/16 11/03/16 17:00 00:05 00:05 WBC RBC Hgb Hct MCV RDW Plt Count Lymph % (Auto) [place] % (Auto) [place] # Seg Neutrophils % Seg Neuts % (Manual) Lymphocytes % (Manual) Monocytes % (Manual) Basophils % (Manual) Nucleated RBC % Seg Neutrophils # Seg Neutrophils # Man Lymphocytes # (Manual) Monocytes # (Manual) Eosinophils # (Manual) Basophils # (Manual) PT INR APTT Heparin Anti-Xa Level POC ABG pH POC ABG pCO2 POC ABG pO2 Sodium Potassium Chloride Carbon Dioxide 20 L BUN 5 L Creatinine Glucose 139 H POC Glucose 161 H Calcium 6.7 L Phosphorus Magnesium 1.2 L AST Alkaline Phosphatase Troponin T C-Reactive Protein Total Protein Albumin Triglycerides HDL Cholesterol Lipase Vitamin B12 TSH Urine WBC (Auto) Urine Chloride Urine Total Protein Vancomycin Trough Crossmatch 11/03/16 11/03/16 11/03/16 00:05 02:05 04:23 WBC 15.9 H 14.0 H RBC 1.93 L 2.38 L Hgb 5.9 L* 7.3 L Hct 18.9 L* 23.1 L MCV 98 H RDW 15.9 H 15.9 H Plt Count Lymph % (Auto) [place] % (Auto) [place] # Seg Neutrophils % Seg Neuts % (Manual) 85.0 H Lymphocytes % (Manual) 4.0 L Monocytes % (Manual) Basophils % (Manual) Nucleated RBC % Seg Neutrophils # Seg Neutrophils # Man 13.5 H Lymphocytes # (Manual) 0.6 L Monocytes # (Manual) Eosinophils # (Manual) Basophils # (Manual) PT INR APTT Heparin Anti-Xa Level POC ABG pH POC ABG pCO2 POC ABG pO2 Sodium Potassium Chloride Carbon Dioxide BUN 5 L Creatinine Glucose 127 H POC Glucose Calcium 7.2 L Phosphorus Magnesium AST Alkaline Phosphatase Troponin T C-Reactive Protein Total Protein 5.8 L Albumin 1.5 L Triglycerides HDL Cholesterol Lipase Vitamin B12 TSH Urine WBC (Auto) Urine Chloride Urine Total Protein Vancomycin Trough Crossmatch 11/03/16 11/03/16 11/03/16 09:14 09:27 11:54 WBC RBC Hgb Hct MCV RDW Plt Count Lymph % (Auto) [place] % (Auto) [place] # Seg Neutrophils % Seg Neuts % (Manual) Lymphocytes % (Manual) Monocytes % (Manual) Basophils % (Manual) Nucleated RBC % Seg Neutrophils # Seg Neutrophils # Man Lymphocytes # (Manual) Monocytes # (Manual) Eosinophils # (Manual) Basophils # (Manual) PT INR APTT Heparin Anti-Xa Level 0.11 L POC ABG pH POC ABG pCO2 POC ABG pO2 Sodium Potassium Chloride Carbon Dioxide BUN 5 L Creatinine Glucose 111 H POC Glucose 139 H Calcium 6.7 L Phosphorus Magnesium AST Alkaline Phosphatase Troponin T C-Reactive Protein Total Protein Albumin Triglycerides HDL Cholesterol Lipase Vitamin B12 TSH Urine WBC (Auto) Urine Chloride Urine Total Protein Vancomycin Trough Crossmatch 11/03/16 11/03/16 11/03/16 16:26 18:01 18:01 WBC RBC Hgb Hct MCV RDW Plt Count Lymph % (Auto) [place] % (Auto) [place] # Seg Neutrophils % Seg Neuts % (Manual) Lymphocytes % (Manual) Monocytes % (Manual) Basophils % (Manual) Nucleated RBC % Seg Neutrophils # Seg Neutrophils # Man Lymphocytes # (Manual) Monocytes # (Manual) Eosinophils # (Manual) Basophils # (Manual) PT INR APTT Heparin Anti-Xa Level 2.00 H POC ABG pH POC ABG pCO2 POC ABG pO2 Sodium Potassium Chloride Carbon Dioxide BUN Creatinine Glucose POC Glucose 142 H Calcium Phosphorus Magnesium AST Alkaline Phosphatase Troponin T C-Reactive Protein Total Protein Albumin Triglycerides HDL Cholesterol Lipase Vitamin B12 TSH Urine WBC (Auto) Urine Chloride Urine Total Protein Vancomycin Trough Crossmatch See Detail 11/04/16 11/04/16 11/04/16 02:15 02:15 06:35 WBC 11.8 H RBC 2.39 L Hgb 7.4 L Hct 23.1 L MCV RDW 15.9 H Plt Count Lymph % (Auto) [place] % (Auto) [place] # Seg Neutrophils % Seg Neuts % (Manual) 76.0 H Lymphocytes % (Manual) 12.0 L Monocytes % (Manual) 9.0 H Basophils % (Manual) Nucleated RBC % Seg Neutrophils # Seg Neutrophils # Man 9.0 H Lymphocytes # (Manual) Monocytes # (Manual) 1.1 H Eosinophils # (Manual) Basophils # (Manual) PT INR APTT Heparin Anti-Xa Level < 0.10 L POC ABG pH POC ABG pCO2 POC ABG pO2 Sodium Potassium Chloride Carbon Dioxide 21 L BUN 5 L Creatinine Glucose 112 H POC Glucose Calcium 6.8 L Phosphorus Magnesium AST Alkaline Phosphatase Troponin T C-Reactive Protein Total Protein 5.7 L Albumin 1.7 L Triglycerides HDL Cholesterol Lipase Vitamin B12 TSH Urine WBC (Auto) Urine Chloride Urine Total Protein Vancomycin Trough Crossmatch 11/04/16 11/04/16 11/04/16 10:51 12:58 15:04 WBC RBC Hgb Hct MCV RDW Plt Count Lymph % (Auto) [place] % (Auto) [place] # Seg Neutrophils % Seg Neuts % (Manual) Lymphocytes % (Manual) Monocytes % (Manual) Basophils % (Manual) Nucleated RBC % Seg Neutrophils # Seg Neutrophils # Man Lymphocytes # (Manual) Monocytes # (Manual) Eosinophils # (Manual) Basophils # (Manual) PT INR APTT Heparin Anti-Xa Level 1.05 H POC ABG pH POC ABG pCO2 33.7 L POC ABG pO2 60 L Sodium Potassium Chloride Carbon Dioxide BUN Creatinine Glucose POC Glucose 118 H Calcium Phosphorus Magnesium AST Alkaline Phosphatase Troponin T C-Reactive Protein Total Protein Albumin Triglycerides HDL Cholesterol Lipase Vitamin B12 TSH Urine WBC (Auto) Urine Chloride Urine Total Protein Vancomycin Trough Crossmatch 11/04/16 11/04/16 11/05/16 17:20 20:31 02:30 WBC RBC Hgb Hct MCV RDW Plt Count Lymph % (Auto) [place] % (Auto) [place] # Seg Neutrophils % Seg Neuts % (Manual) Lymphocytes % (Manual) Monocytes % (Manual) Basophils % (Manual) Nucleated RBC % Seg Neutrophils # Seg Neutrophils # Man Lymphocytes # (Manual) Monocytes # (Manual) Eosinophils # (Manual) Basophils # (Manual) PT INR APTT Heparin Anti-Xa Level POC ABG pH POC ABG pCO2 POC ABG pO2 Sodium Potassium 3.5 L Chloride Carbon Dioxide 18 L BUN 5 L Creatinine 0.6 L Glucose 110 H POC Glucose 228 H 169 H Calcium 7.1 L Phosphorus Magnesium AST Alkaline Phosphatase Troponin T C-Reactive Protein Total Protein Albumin 1.9 L Triglycerides HDL Cholesterol Lipase Vitamin B12 TSH Urine WBC (Auto) Urine Chloride Urine Total Protein Vancomycin Trough Crossmatch 11/05/16 11/05/16 11/05/16 02:30 17:52 21:07 WBC 14.1 H RBC Hgb Hct MCV RDW 16.7 H Plt Count Lymph % (Auto) [place] % (Auto) [place] # Seg Neutrophils % Seg Neuts % (Manual) 80.0 H Lymphocytes % (Manual) 6.0 L Monocytes % (Manual) 8.0 H Basophils % (Manual) Nucleated RBC % Seg Neutrophils # Seg Neutrophils # Man 11.3 H Lymphocytes # (Manual) 0.8 L Monocytes # (Manual) 1.1 H Eosinophils # (Manual) Basophils # (Manual) PT INR APTT Heparin Anti-Xa Level < 0.10 L POC ABG pH POC ABG pCO2 POC ABG pO2 Sodium Potassium Chloride Carbon Dioxide BUN Creatinine Glucose POC Glucose 174 H Calcium Phosphorus Magnesium AST Alkaline Phosphatase Troponin T C-Reactive Protein Total Protein Albumin Triglycerides HDL Cholesterol Lipase Vitamin B12 TSH Urine WBC (Auto) Urine Chloride Urine Total Protein Vancomycin Trough Crossmatch 11/05/16 11/06/16 11/06/16 23:30 05:00 05:00 WBC 15.2 H RBC 3.29 L Hgb 10.0 L Hct MCV RDW 16.9 H Plt Count Lymph % (Auto) [place] % (Auto) [place] # Seg Neutrophils % Seg Neuts % (Manual) Lymphocytes % (Manual) Monocytes % (Manual) Basophils % (Manual) Nucleated RBC % Seg Neutrophils # Seg Neutrophils # Man Lymphocytes # (Manual) Monocytes # (Manual) Eosinophils # (Manual) Basophils # (Manual) PT INR APTT Heparin Anti-Xa Level 0.94 H POC ABG pH POC ABG pCO2 POC ABG pO2 Sodium Potassium Chloride Carbon Dioxide BUN Creatinine Glucose POC Glucose 131 H Calcium Phosphorus Magnesium AST Alkaline Phosphatase Troponin T C-Reactive Protein Total Protein Albumin Triglycerides HDL Cholesterol Lipase Vitamin B12 TSH Urine WBC (Auto) Urine Chloride Urine Total Protein Vancomycin Trough Crossmatch 11/06/16 11/06/16 11/06/16 05:00 11:45 18:23 WBC RBC Hgb Hct MCV RDW Plt Count Lymph % (Auto) [place] % (Auto) [place] # Seg Neutrophils % Seg Neuts % (Manual) Lymphocytes % (Manual) Monocytes % (Manual) Basophils % (Manual) Nucleated RBC % Seg Neutrophils # Seg Neutrophils # Man Lymphocytes # (Manual) Monocytes # (Manual) Eosinophils # (Manual) Basophils # (Manual) PT INR APTT Heparin Anti-Xa Level POC ABG pH POC ABG pCO2 POC ABG pO2 Sodium Potassium 3.5 L Chloride 107.1 H Carbon Dioxide 20 L BUN 4 L Creatinine 0.6 L Glucose 104 H POC Glucose 141 H 255 H Calcium 6.7 L Phosphorus Magnesium AST Alkaline Phosphatase Troponin T C-Reactive Protein Total Protein Albumin Triglycerides HDL Cholesterol Lipase Vitamin B12 TSH Urine WBC (Auto) Urine Chloride Urine Total Protein Vancomycin Trough Crossmatch 11/06/16 11/06/16 11/07/16 22:07 23:07 11:41 WBC RBC Hgb Hct MCV RDW Plt Count Lymph % (Auto) [place] % (Auto) [place] # Seg Neutrophils % Seg Neuts % (Manual) Lymphocytes % (Manual) Monocytes % (Manual) Basophils % (Manual) Nucleated RBC % Seg Neutrophils # Seg Neutrophils # Man Lymphocytes # (Manual) Monocytes # (Manual) Eosinophils # (Manual) Basophils # (Manual) PT INR APTT Heparin Anti-Xa Level 0.80 H POC ABG pH POC ABG pCO2 POC ABG pO2 Sodium Potassium Chloride Carbon Dioxide BUN Creatinine Glucose POC Glucose 183 H 132 H Calcium Phosphorus Magnesium AST Alkaline Phosphatase Troponin T C-Reactive Protein Total Protein Albumin Triglycerides HDL Cholesterol Lipase Vitamin B12 TSH Urine WBC (Auto) Urine Chloride Urine Total Protein Vancomycin Trough Crossmatch 11/07/16 11/07/16 11/07/16 12:17 17:05 17:58 WBC RBC Hgb Hct MCV RDW Plt Count Lymph % (Auto) [place] % (Auto) [place] # Seg Neutrophils % Seg Neuts % (Manual) Lymphocytes % (Manual) Monocytes % (Manual) Basophils % (Manual) Nucleated RBC % Seg Neutrophils # Seg Neutrophils # Man Lymphocytes # (Manual) Monocytes # (Manual) Eosinophils # (Manual) Basophils # (Manual) PT INR APTT Heparin Anti-Xa Level 0.87 H POC ABG pH 7.324 L POC ABG pCO2 POC ABG pO2 Sodium Potassium Chloride Carbon Dioxide BUN Creatinine Glucose POC Glucose 158 H Calcium Phosphorus Magnesium AST Alkaline Phosphatase Troponin T C-Reactive Protein Total Protein Albumin Triglycerides HDL Cholesterol Lipase Vitamin B12 TSH Urine WBC (Auto) Urine Chloride Urine Total Protein Vancomycin Trough Crossmatch 11/07/16 11/07/16 11/07/16 23:26 Unknown Unknown WBC 12.3 H RBC 2.96 L Hgb 9.1 L Hct 27.9 L MCV RDW 16.8 H Plt Count Lymph % (Auto) [place] % (Auto) [place] # Seg Neutrophils % Seg Neuts % (Manual) 80.0 H Lymphocytes % (Manual) 7.0 L Monocytes % (Manual) Basophils % (Manual) Nucleated RBC % Seg Neutrophils # Seg Neutrophils # Man 9.8 H Lymphocytes # (Manual) 0.9 L Monocytes # (Manual) Eosinophils # (Manual) Basophils # (Manual) PT INR APTT Heparin Anti-Xa Level POC ABG pH POC ABG pCO2 POC ABG pO2 Sodium Potassium Chloride Carbon Dioxide 19 L BUN Creatinine Glucose 106 H POC Glucose 130 H Calcium 6.9 L Phosphorus Magnesium AST Alkaline Phosphatase Troponin T C-Reactive Protein Total Protein Albumin Triglycerides HDL Cholesterol Lipase Vitamin B12 TSH Urine WBC (Auto) Urine Chloride Urine Total Protein Vancomycin Trough Crossmatch 11/07/16 11/08/16 11/08/16 Unknown 05:14 05:20 WBC 12.4 H RBC 3.04 L Hgb 9.2 L Hct 28.8 L MCV RDW 16.6 H Plt Count Lymph % (Auto) [place] % (Auto) [place] # Seg Neutrophils % Seg Neuts % (Manual) 77.0 H Lymphocytes % (Manual) 5.0 L Monocytes % (Manual) Basophils % (Manual) 2.0 H Nucleated RBC % Seg Neutrophils # Seg Neutrophils # Man 9.5 H Lymphocytes # (Manual) 0.6 L Monocytes # (Manual) Eosinophils # (Manual) Basophils # (Manual) 0.2 H PT INR APTT Heparin Anti-Xa Level 0.90 H POC ABG pH POC ABG pCO2 POC ABG pO2 Sodium Potassium Chloride Carbon Dioxide BUN Creatinine Glucose POC Glucose 204 H Calcium Phosphorus Magnesium AST Alkaline Phosphatase Troponin T C-Reactive Protein Total Protein Albumin Triglycerides HDL Cholesterol Lipase Vitamin B12 TSH Urine WBC (Auto) Urine Chloride Urine Total Protein Vancomycin Trough Crossmatch 03/11/08/16 11/08/16 05:20 12:10 13:10 WBC RBC Hgb Hct MCV RDW Plt Count Lymph % (Auto) [place] % (Auto) [place] # Seg Neutrophils % Seg Neuts % (Manual) Lymphocytes % (Manual) Monocytes % (Manual) Basophils % (Manual) Nucleated RBC % Seg Neutrophils # Seg Neutrophils # Man Lymphocytes # (Manual) Monocytes # (Manual) Eosinophils # (Manual) Basophils # (Manual) PT INR APTT Heparin Anti-Xa Level POC ABG pH POC ABG pCO2 33.7 L POC ABG pO2 Sodium 136 L Potassium Chloride Carbon Dioxide 19 L BUN Creatinine Glucose 192 H POC Glucose 180 H Calcium 7.1 L Phosphorus Magnesium AST Alkaline Phosphatase Troponin T C-Reactive Protein Total Protein Albumin Triglycerides HDL Cholesterol Lipase Vitamin B12 TSH Urine WBC (Auto) Urine Chloride Urine Total Protein Vancomycin Trough Crossmatch 11/08/16 11/08/16 11/08/16 17:26 20:45 23:34 WBC RBC Hgb Hct MCV RDW Plt Count Lymph % (Auto) [place] % (Auto) [place] # Seg Neutrophils % Seg Neuts % (Manual) Lymphocytes % (Manual) Monocytes % (Manual) Basophils % (Manual) Nucleated RBC % Seg Neutrophils # Seg Neutrophils # Man Lymphocytes # (Manual) Monocytes # (Manual) Eosinophils # (Manual) Basophils # (Manual) PT INR APTT Heparin Anti-Xa Level POC ABG pH POC ABG pCO2 POC ABG pO2 Sodium Potassium Chloride Carbon Dioxide BUN Creatinine Glucose POC Glucose 187 H 178 H Calcium Phosphorus Magnesium AST Alkaline Phosphatase Troponin T C-Reactive Protein Total Protein Albumin Triglycerides HDL Cholesterol Lipase Vitamin B12 TSH Urine WBC (Auto) Urine Chloride Urine Total Protein Vancomycin Trough 35.4 H Crossmatch 11/09/16 11/09/16 11/09/16 05:30 05:30 05:59 WBC 11.5 H RBC 2.96 L Hgb 9.2 L Hct 28.2 L MCV RDW 16.4 H Plt Count Lymph % (Auto) [place] % (Auto) [place] # Seg Neutrophils % Seg Neuts % (Manual) 76.0 H Lymphocytes % (Manual) 2.0 L Monocytes % (Manual) Basophils % (Manual) Nucleated RBC % Seg Neutrophils # Seg Neutrophils # Man 8.7 H Lymphocytes # (Manual) 0.2 L Monocytes # (Manual) Eosinophils # (Manual) Basophils # (Manual) PT INR APTT Heparin Anti-Xa Level POC ABG pH POC ABG pCO2 POC ABG pO2 Sodium Potassium 3.4 L Chloride 107.6 H Carbon Dioxide 19 L BUN Creatinine 0.6 L Glucose 207 H POC Glucose 263 H Calcium 7.3 L Phosphorus Magnesium AST Alkaline Phosphatase Troponin T C-Reactive Protein Total Protein Albumin Triglycerides HDL Cholesterol Lipase Vitamin B12 TSH Urine WBC (Auto) Urine Chloride Urine Total Protein Vancomycin Trough Crossmatch 11/09/16 11/09/16 11/09/16 11:49 15:24 18:04 WBC RBC Hgb Hct MCV RDW Plt Count Lymph % (Auto) [place] % (Auto) [place] # Seg Neutrophils % Seg Neuts % (Manual) Lymphocytes % (Manual) Monocytes % (Manual) Basophils % (Manual) Nucleated RBC % Seg Neutrophils # Seg Neutrophils # Man Lymphocytes # (Manual) Monocytes # (Manual) Eosinophils # (Manual) Basophils # (Manual) PT INR APTT Heparin Anti-Xa Level POC ABG pH POC ABG pCO2 33.8 L POC ABG pO2 131 H Sodium Potassium Chloride Carbon Dioxide BUN Creatinine Glucose POC Glucose 269 H 242 H Calcium Phosphorus Magnesium AST Alkaline Phosphatase Troponin T C-Reactive Protein Total Protein Albumin Triglycerides HDL Cholesterol Lipase Vitamin B12 TSH Urine WBC (Auto) Urine Chloride Urine Total Protein Vancomycin Trough Crossmatch 11/09/16 11/10/16 11/10/16 22:57 04:30 04:30 WBC 15.7 H RBC 3.17 L Hgb 9.7 L Hct 30.2 L MCV RDW 16.2 H Plt Count Lymph % (Auto) [place] % (Auto) [place] # Seg Neutrophils % Seg Neuts % (Manual) Lymphocytes % (Manual) Monocytes % (Manual) Basophils % (Manual) Nucleated RBC % Seg Neutrophils # Seg Neutrophils # Man 8.5 H Lymphocytes # (Manual) Monocytes # (Manual) Eosinophils # (Manual) 0.5 H Basophils # (Manual) PT INR APTT Heparin Anti-Xa Level POC ABG pH POC ABG pCO2 POC ABG pO2 Sodium Potassium Chloride Carbon Dioxide 19 L BUN Creatinine 0.6 L Glucose 199 H POC Glucose 239 H Calcium 7.8 L Phosphorus Magnesium AST Alkaline Phosphatase Troponin T C-Reactive Protein Total Protein Albumin Triglycerides HDL Cholesterol Lipase Vitamin B12 TSH Urine WBC (Auto) Urine Chloride Urine Total Protein Vancomycin Trough Crossmatch 11/10/16 11/10/16 11/10/16 04:30 11:32 16:00 WBC RBC Hgb Hct MCV RDW Plt Count Lymph % (Auto) [place] % (Auto) [place] # Seg Neutrophils % Seg Neuts % (Manual) Lymphocytes % (Manual) Monocytes % (Manual) Basophils % (Manual) Nucleated RBC % Seg Neutrophils # Seg Neutrophils # Man Lymphocytes # (Manual) Monocytes # (Manual) Eosinophils # (Manual) Basophils # (Manual) PT INR APTT Heparin Anti-Xa Level 1.09 H < 0.10 L POC ABG pH POC ABG pCO2 POC ABG pO2 Sodium Potassium Chloride Carbon Dioxide BUN Creatinine Glucose POC Glucose 211 H Calcium Phosphorus Magnesium AST Alkaline Phosphatase Troponin T C-Reactive Protein Total Protein Albumin Triglycerides HDL Cholesterol Lipase Vitamin B12 TSH Urine WBC (Auto) Urine Chloride Urine Total Protein Vancomycin Trough Crossmatch 11/10/16 11/10/16 11/10/16 17:39 18:00 23:06 WBC RBC Hgb Hct MCV RDW Plt Count Lymph % (Auto) [place] % (Auto) [place] # Seg Neutrophils % Seg Neuts % (Manual) Lymphocytes % (Manual) Monocytes % (Manual) Basophils % (Manual) Nucleated RBC % Seg Neutrophils # Seg Neutrophils # Man Lymphocytes # (Manual) Monocytes # (Manual) Eosinophils # (Manual) Basophils # (Manual) PT INR APTT Heparin Anti-Xa Level 0.85 H POC ABG pH POC ABG pCO2 POC ABG pO2 Sodium Potassium Chloride Carbon Dioxide BUN Creatinine Glucose POC Glucose 249 H 220 H Calcium Phosphorus Magnesium AST Alkaline Phosphatase Troponin T C-Reactive Protein Total Protein Albumin Triglycerides HDL Cholesterol Lipase Vitamin B12 TSH Urine WBC (Auto) Urine Chloride Urine Total Protein Vancomycin Trough Crossmatch 11/11/16 11/11/16 11/11/16 05:56 06:15 06:15 WBC 13.3 H RBC 2.87 L Hgb 8.7 L Hct 27.2 L MCV RDW 16.4 H Plt Count Lymph % (Auto) [place] % (Auto) [place] # 0.9 H Seg Neutrophils % 78.9 H Seg Neuts % (Manual) Lymphocytes % (Manual) Monocytes % (Manual) Basophils % (Manual) Nucleated RBC % Seg Neutrophils # 10.5 H Seg Neutrophils # Man Lymphocytes # (Manual) Monocytes # (Manual) Eosinophils # (Manual) Basophils # (Manual) PT INR APTT Heparin Anti-Xa Level POC ABG pH POC ABG pCO2 POC ABG pO2 Sodium Potassium 3.2 L Chloride Carbon Dioxide 19 L BUN Creatinine Glucose POC Glucose 117 H Calcium 7.6 L Phosphorus Magnesium AST Alkaline Phosphatase Troponin T C-Reactive Protein Total Protein Albumin Triglycerides HDL Cholesterol Lipase Vitamin B12 TSH Urine WBC (Auto) Urine Chloride Urine Total Protein Vancomycin Trough Crossmatch 11/11/16 11/11/16 11/11/16 12:26 16:58 17:33 WBC RBC Hgb Hct MCV RDW Plt Count Lymph % (Auto) [place] % (Auto) [place] # Seg Neutrophils % Seg Neuts % (Manual) Lymphocytes % (Manual) Monocytes % (Manual) Basophils % (Manual) Nucleated RBC % Seg Neutrophils # Seg Neutrophils # Man Lymphocytes # (Manual) Monocytes # (Manual) Eosinophils # (Manual) Basophils # (Manual) PT INR APTT Heparin Anti-Xa Level < 0.10 L POC ABG pH POC ABG pCO2 POC ABG pO2 Sodium Potassium Chloride Carbon Dioxide BUN Creatinine Glucose POC Glucose 114 H 161 H Calcium Phosphorus Magnesium AST Alkaline Phosphatase Troponin T C-Reactive Protein Total Protein Albumin Triglycerides HDL Cholesterol Lipase Vitamin B12 TSH Urine WBC (Auto) Urine Chloride Urine Total Protein Vancomycin Trough Crossmatch 11/12/16 11/12/16 11/12/16 05:00 05:00 05:00 WBC 12.8 H RBC 2.75 L Hgb 8.4 L Hct 25.7 L MCV RDW 16.3 H Plt Count Lymph % (Auto) [place] % (Auto) 7.5 H [place] # 1.0 H Seg Neutrophils % 78.0 H Seg Neuts % (Manual) Lymphocytes % (Manual) Monocytes % (Manual) Basophils % (Manual) Nucleated RBC % Seg Neutrophils # 10.0 H Seg Neutrophils # Man Lymphocytes # (Manual) Monocytes # (Manual) Eosinophils # (Manual) Basophils # (Manual) PT INR APTT Heparin Anti-Xa Level 0.87 H POC ABG pH POC ABG pCO2 POC ABG pO2 Sodium Potassium 3.4 L Chloride Carbon Dioxide 19 L BUN Creatinine Glucose 112 H POC Glucose Calcium 7.7 L Phosphorus Magnesium AST Alkaline Phosphatase Troponin T C-Reactive Protein Total Protein Albumin Triglycerides HDL Cholesterol Lipase Vitamin B12 TSH Urine WBC (Auto) Urine Chloride Urine Total Protein Vancomycin Trough Crossmatch 11/12/16 11/12/16 11/13/16 11:18 16:40 00:44 WBC RBC Hgb Hct MCV RDW Plt Count Lymph % (Auto) [place] % (Auto) [place] # Seg Neutrophils % Seg Neuts % (Manual) Lymphocytes % (Manual) Monocytes % (Manual) Basophils % (Manual) Nucleated RBC % Seg Neutrophils # Seg Neutrophils # Man Lymphocytes # (Manual) Monocytes # (Manual) Eosinophils # (Manual) Basophils # (Manual) PT INR APTT Heparin Anti-Xa Level POC ABG pH POC ABG pCO2 POC ABG pO2 Sodium Potassium Chloride Carbon Dioxide BUN Creatinine Glucose POC Glucose 135 H 139 H 169 H Calcium Phosphorus Magnesium AST Alkaline Phosphatase Troponin T C-Reactive Protein Total Protein Albumin Triglycerides HDL Cholesterol Lipase Vitamin B12 TSH Urine WBC (Auto) Urine Chloride Urine Total Protein Vancomycin Trough Crossmatch 11/13/16 11/13/16 11/13/16 05:28 05:28 06:02 WBC 12.7 H RBC 2.93 L Hgb 9.0 L Hct 27.6 L MCV RDW 16.1 H Plt Count Lymph % (Auto) [place] % (Auto) [place] # Seg Neutrophils % 78.6 H Seg Neuts % (Manual) Lymphocytes % (Manual) Monocytes % (Manual) Basophils % (Manual) Nucleated RBC % Seg Neutrophils # 10.0 H Seg Neutrophils # Man Lymphocytes # (Manual) Monocytes # (Manual) Eosinophils # (Manual) Basophils # (Manual) PT INR APTT Heparin Anti-Xa Level POC ABG pH POC ABG pCO2 POC ABG pO2 Sodium Potassium Chloride Carbon Dioxide 17 L BUN Creatinine Glucose 116 H POC Glucose 112 H Calcium 7.8 L Phosphorus Magnesium AST Alkaline Phosphatase Troponin T C-Reactive Protein Total Protein Albumin Triglycerides HDL Cholesterol Lipase Vitamin B12 TSH Urine WBC (Auto) Urine Chloride Urine Total Protein Vancomycin Trough Crossmatch 11/13/16 11/13/16 11/13/16 12:34 16:55 17:00 WBC RBC Hgb Hct MCV RDW Plt Count Lymph % (Auto) [place] % (Auto) [place] # Seg Neutrophils % Seg Neuts % (Manual) Lymphocytes % (Manual) Monocytes % (Manual) Basophils % (Manual) Nucleated RBC % Seg Neutrophils # Seg Neutrophils # Man Lymphocytes # (Manual) Monocytes # (Manual) Eosinophils # (Manual) Basophils # (Manual) PT INR APTT Heparin Anti-Xa Level POC ABG pH POC ABG pCO2 22.9 L POC ABG pO2 53 L Sodium Potassium Chloride Carbon Dioxide BUN Creatinine Glucose POC Glucose 109 H 122 H Calcium Phosphorus Magnesium AST Alkaline Phosphatase Troponin T C-Reactive Protein Total Protein Albumin Triglycerides HDL Cholesterol Lipase Vitamin B12 TSH Urine WBC (Auto) Urine Chloride Urine Total Protein Vancomycin Trough Crossmatch 11/13/16 11/14/16 11/14/16 23:33 04:42 04:42 WBC 11.7 H RBC 3.01 L Hgb 9.3 L Hct 28.9 L MCV RDW 16.5 H Plt Count Lymph % (Auto) [place] % (Auto) [place] # Seg Neutrophils % Seg Neuts % (Manual) 79.0 H Lymphocytes % (Manual) 10.0 L Monocytes % (Manual) Basophils % (Manual) Nucleated RBC % Seg Neutrophils # Seg Neutrophils # Man 9.2 H Lymphocytes # (Manual) Monocytes # (Manual) Eosinophils # (Manual) Basophils # (Manual) PT INR APTT Heparin Anti-Xa Level POC ABG pH POC ABG pCO2 POC ABG pO2 Sodium Potassium Chloride Carbon Dioxide 16 L BUN Creatinine Glucose 102 H POC Glucose 173 H Calcium 7.5 L Phosphorus Magnesium AST Alkaline Phosphatase Troponin T C-Reactive Protein Total Protein Albumin Triglycerides HDL Cholesterol Lipase Vitamin B12 TSH Urine WBC (Auto) Urine Chloride Urine Total Protein Vancomycin Trough Crossmatch 11/14/16 11/14/16 11/14/16 11:43 16:57 19:45 WBC RBC Hgb Hct MCV RDW Plt Count Lymph % (Auto) [place] % (Auto) [place] # Seg Neutrophils % Seg Neuts % (Manual) Lymphocytes % (Manual) Monocytes % (Manual) Basophils % (Manual) Nucleated RBC % Seg Neutrophils # Seg Neutrophils # Man Lymphocytes # (Manual) Monocytes # (Manual) Eosinophils # (Manual) Basophils # (Manual) PT INR APTT Heparin Anti-Xa Level 0.71 H POC ABG pH POC ABG pCO2 POC ABG pO2 Sodium Potassium Chloride Carbon Dioxide BUN Creatinine Glucose POC Glucose 130 H 209 H Calcium Phosphorus Magnesium AST Alkaline Phosphatase Troponin T C-Reactive Protein Total Protein Albumin Triglycerides HDL Cholesterol Lipase Vitamin B12 TSH Urine WBC (Auto) Urine Chloride Urine Total Protein Vancomycin Trough Crossmatch 11/14/16 11/15/16 11/16/16 23:43 23:47 06:11 WBC RBC Hgb Hct MCV RDW Plt Count Lymph % (Auto) [place] % (Auto) [place] # Seg Neutrophils % Seg Neuts % (Manual) Lymphocytes % (Manual) Monocytes % (Manual) Basophils % (Manual) Nucleated RBC % Seg Neutrophils # Seg Neutrophils # Man Lymphocytes # (Manual) Monocytes # (Manual) Eosinophils # (Manual) Basophils # (Manual) PT INR APTT Heparin Anti-Xa Level POC ABG pH POC ABG pCO2 POC ABG pO2 Sodium Potassium Chloride Carbon Dioxide BUN Creatinine Glucose POC Glucose 167 H 114 H 125 H Calcium Phosphorus Magnesium AST Alkaline Phosphatase Troponin T C-Reactive Protein Total Protein Albumin Triglycerides HDL Cholesterol Lipase Vitamin B12 TSH Urine WBC (Auto) Urine Chloride Urine Total Protein Vancomycin Trough Crossmatch 11/16/16 11/16/16 11/16/16 09:05 09:05 09:05 WBC RBC 2.53 L Hgb 8.0 L Hct 23.7 L MCV RDW 15.9 H Plt Count Lymph % (Auto) [place] % (Auto) [place] # Seg Neutrophils % Seg Neuts % (Manual) Lymphocytes % (Manual) Monocytes % (Manual) Basophils % (Manual) Nucleated RBC % Seg Neutrophils # Seg Neutrophils # Man Lymphocytes # (Manual) Monocytes # (Manual) Eosinophils # (Manual) Basophils # (Manual) PT INR APTT Heparin Anti-Xa Level POC ABG pH POC ABG pCO2 POC ABG pO2 Sodium Potassium 2.5 L* D Chloride Carbon Dioxide 19 L BUN 5 L Creatinine Glucose 103 H POC Glucose Calcium 6.6 L Phosphorus Magnesium 1.3 L AST Alkaline Phosphatase Troponin T C-Reactive Protein Total Protein Albumin Triglycerides HDL Cholesterol Lipase Vitamin B12 TSH Urine WBC (Auto) Urine Chloride Urine Total Protein Vancomycin Trough Crossmatch 11/16/16 11/16/16 11/16/16 12:15 13:00 14:45 WBC RBC Hgb Hct MCV RDW Plt Count Lymph % (Auto) [place] % (Auto) [place] # Seg Neutrophils % Seg Neuts % (Manual) Lymphocytes % (Manual) Monocytes % (Manual) Basophils % (Manual) Nucleated RBC % Seg Neutrophils # Seg Neutrophils # Man Lymphocytes # (Manual) Monocytes # (Manual) Eosinophils # (Manual) Basophils # (Manual) PT 19.1 H INR 1.61 H APTT Heparin Anti-Xa Level POC ABG pH 7.479 H POC ABG pCO2 23.6 L POC ABG pO2 Sodium Potassium Chloride Carbon Dioxide BUN Creatinine Glucose POC Glucose 129 H Calcium Phosphorus Magnesium AST Alkaline Phosphatase Troponin T C-Reactive Protein Total Protein Albumin Triglycerides HDL Cholesterol Lipase Vitamin B12 TSH Urine WBC (Auto) Urine Chloride Urine Total Protein Vancomycin Trough Crossmatch 11/16/16 11/17/16 11/17/16 17:43 00:30 04:32 WBC RBC Hgb Hct MCV RDW Plt Count Lymph % (Auto) [place] % (Auto) [place] # Seg Neutrophils % Seg Neuts % (Manual) Lymphocytes % (Manual) Monocytes % (Manual) Basophils % (Manual) Nucleated RBC % Seg Neutrophils # Seg Neutrophils # Man Lymphocytes # (Manual) Monocytes # (Manual) Eosinophils # (Manual) Basophils # (Manual) PT INR APTT Heparin Anti-Xa Level POC ABG pH POC ABG pCO2 POC ABG pO2 Sodium Potassium Chloride Carbon Dioxide 18 L BUN Creatinine Glucose 127 H POC Glucose 224 H 259 H Calcium 7.5 L Phosphorus Magnesium AST Alkaline Phosphatase Troponin T C-Reactive Protein Total Protein Albumin Triglycerides HDL Cholesterol Lipase Vitamin B12 TSH Urine WBC (Auto) Urine Chloride Urine Total Protein Vancomycin Trough Crossmatch 11/17/16 11/17/16 11/17/16 05:42 08:34 12:19 WBC RBC 2.85 L Hgb 8.9 L Hct 26.5 L MCV RDW 16.2 H Plt Count Lymph % (Auto) [place] % (Auto) [place] # Seg Neutrophils % Seg Neuts % (Manual) Lymphocytes % (Manual) Monocytes % (Manual) Basophils % (Manual) Nucleated RBC % Seg Neutrophils # Seg Neutrophils # Man Lymphocytes # (Manual) Monocytes # (Manual) Eosinophils # (Manual) Basophils # (Manual) PT INR APTT Heparin Anti-Xa Level POC ABG pH POC ABG pCO2 POC ABG pO2 Sodium Potassium Chloride Carbon Dioxide BUN Creatinine Glucose POC Glucose 118 H 264 H Calcium Phosphorus Magnesium AST Alkaline Phosphatase Troponin T C-Reactive Protein Total Protein Albumin Triglycerides HDL Cholesterol Lipase Vitamin B12 TSH Urine WBC (Auto) Urine Chloride Urine Total Protein Vancomycin Trough Crossmatch 11/17/16 11/17/16 11/18/16 16:52 23:44 04:53 WBC RBC Hgb Hct MCV RDW Plt Count Lymph % (Auto) [place] % (Auto) [place] # Seg Neutrophils % Seg Neuts % (Manual) Lymphocytes % (Manual) Monocytes % (Manual) Basophils % (Manual) Nucleated RBC % Seg Neutrophils # Seg Neutrophils # Man Lymphocytes # (Manual) Monocytes # (Manual) Eosinophils # (Manual) Basophils # (Manual) PT INR APTT Heparin Anti-Xa Level POC ABG pH POC ABG pCO2 POC ABG pO2 Sodium Potassium Chloride Carbon Dioxide BUN Creatinine Glucose POC Glucose 256 H 109 H 287 H Calcium Phosphorus Magnesium AST Alkaline Phosphatase Troponin T C-Reactive Protein Total Protein Albumin Triglycerides HDL Cholesterol Lipase Vitamin B12 TSH Urine WBC (Auto) Urine Chloride Urine Total Protein Vancomycin Trough Crossmatch 11/18/16 11/18/16 11/18/16 05:31 05:45 05:45 WBC RBC Hgb Hct MCV RDW Plt Count Lymph % (Auto) [place] % (Auto) [place] # Seg Neutrophils % Seg Neuts % (Manual) Lymphocytes % (Manual) Monocytes % (Manual) Basophils % (Manual) Nucleated RBC % Seg Neutrophils # Seg Neutrophils # Man Lymphocytes # (Manual) Monocytes # (Manual) Eosinophils # (Manual) Basophils # (Manual) PT 20.1 H INR 1.72 H APTT 131.1 H* Heparin Anti-Xa Level 0.18 L POC ABG pH 7.252 L POC ABG pCO2 32.0 L POC ABG pO2 Sodium Potassium Chloride 107.1 H Carbon Dioxide 17 L BUN Creatinine Glucose 284 H POC Glucose Calcium 7.2 L Phosphorus Magnesium AST Alkaline Phosphatase Troponin T C-Reactive Protein Total Protein 5.5 L Albumin 2.1 L Triglycerides HDL Cholesterol Lipase Vitamin B12 TSH Urine WBC (Auto) Urine Chloride Urine Total Protein Vancomycin Trough Crossmatch 11/18/16 11/18/16 11/18/16 05:45 09:17 12:06 WBC 13.3 H RBC 3.07 L Hgb 9.2 L Hct 29.5 L MCV RDW 16.9 H Plt Count Lymph % (Auto) 11.0 L [place] % (Auto) [place] # Seg Neutrophils % 82.9 H Seg Neuts % (Manual) Lymphocytes % (Manual) Monocytes % (Manual) Basophils % (Manual) Nucleated RBC % Seg Neutrophils # 11.0 H Seg Neutrophils # Man Lymphocytes # (Manual) Monocytes # (Manual) Eosinophils # (Manual) Basophils # (Manual) PT INR APTT Heparin Anti-Xa Level POC ABG pH POC ABG pCO2 24.3 L POC ABG pO2 79 L Sodium Potassium Chloride Carbon Dioxide BUN Creatinine Glucose POC Glucose 433 H Calcium Phosphorus Magnesium AST Alkaline Phosphatase Troponin T C-Reactive Protein Total Protein Albumin Triglycerides HDL Cholesterol Lipase Vitamin B12 TSH Urine WBC (Auto) Urine Chloride Urine Total Protein Vancomycin Trough Crossmatch 11/18/16 11/18/16 11/18/16 12:09 13:00 17:22 WBC 12.6 H RBC 2.79 L Hgb 8.6 L Hct 26.6 L MCV RDW 17.0 H Plt Count Lymph % (Auto) [place] % (Auto) [place] # Seg Neutrophils % Seg Neuts % (Manual) 90.0 H Lymphocytes % (Manual) 8.0 L Monocytes % (Manual) Basophils % (Manual) Nucleated RBC % Seg Neutrophils # Seg Neutrophils # Man 11.3 H Lymphocytes # (Manual) 1.0 L Monocytes # (Manual) Eosinophils # (Manual) Basophils # (Manual) PT INR APTT Heparin Anti-Xa Level POC ABG pH POC ABG pCO2 POC ABG pO2 Sodium Potassium Chloride Carbon Dioxide BUN Creatinine Glucose POC Glucose 429 H 297 H Calcium Phosphorus Magnesium AST Alkaline Phosphatase Troponin T C-Reactive Protein Total Protein Albumin Triglycerides HDL Cholesterol Lipase Vitamin B12 TSH Urine WBC (Auto) Urine Chloride Urine Total Protein Vancomycin Trough Crossmatch 11/18/16 11/19/16 11/19/16 23:27 04:30 04:30 WBC RBC 2.92 L Hgb 8.8 L Hct 27.0 L MCV RDW 16.6 H Plt Count Lymph % (Auto) [place] % (Auto) [place] # Seg Neutrophils % Seg Neuts % (Manual) Lymphocytes % (Manual) Monocytes % (Manual) Basophils % (Manual) Nucleated RBC % Seg Neutrophils # Seg Neutrophils # Man Lymphocytes # (Manual) Monocytes # (Manual) Eosinophils # (Manual) Basophils # (Manual) PT INR APTT Heparin Anti-Xa Level POC ABG pH POC ABG pCO2 POC ABG pO2 Sodium Potassium 3.0 L Chloride 107.9 H Carbon Dioxide 20 L BUN Creatinine Glucose 231 H POC Glucose 268 H Calcium 7.1 L Phosphorus Magnesium AST Alkaline Phosphatase Troponin T C-Reactive Protein Total Protein 5.5 L Albumin 2.1 L Triglycerides HDL Cholesterol Lipase Vitamin B12 TSH Urine WBC (Auto) Urine Chloride Urine Total Protein Vancomycin Trough Crossmatch 11/19/16 11/19/16 11/19/16 04:40 06:40 10:00 WBC RBC Hgb Hct MCV RDW Plt Count Lymph % (Auto) [place] % (Auto) [place] # Seg Neutrophils % Seg Neuts % (Manual) Lymphocytes % (Manual) Monocytes % (Manual) Basophils % (Manual) Nucleated RBC % Seg Neutrophils # Seg Neutrophils # Man Lymphocytes # (Manual) Monocytes # (Manual) Eosinophils # (Manual) Basophils # (Manual) PT INR APTT Heparin Anti-Xa Level POC ABG pH POC ABG pCO2 POC ABG pO2 Sodium Potassium Chloride Carbon Dioxide BUN Creatinine Glucose POC Glucose 267 H 244 H Calcium Phosphorus Magnesium 1.4 L AST Alkaline Phosphatase Troponin T C-Reactive Protein Total Protein Albumin Triglycerides HDL Cholesterol Lipase Vitamin B12 TSH Urine WBC (Auto) Urine Chloride Urine Total Protein Vancomycin Trough Crossmatch 11/19/16 11/19/16 11/19/16 12:08 18:10 23:40 WBC RBC Hgb Hct MCV RDW Plt Count Lymph % (Auto) [place] % (Auto) [place] # Seg Neutrophils % Seg Neuts % (Manual) Lymphocytes % (Manual) Monocytes % (Manual) Basophils % (Manual) Nucleated RBC % Seg Neutrophils # Seg Neutrophils # Man Lymphocytes # (Manual) Monocytes # (Manual) Eosinophils # (Manual) Basophils # (Manual) PT INR APTT Heparin Anti-Xa Level POC ABG pH POC ABG pCO2 POC ABG pO2 Sodium Potassium Chloride Carbon Dioxide BUN Creatinine Glucose POC Glucose 254 H 265 H 197 H Calcium Phosphorus Magnesium AST Alkaline Phosphatase Troponin T C-Reactive Protein Total Protein Albumin Triglycerides HDL Cholesterol Lipase Vitamin B12 TSH Urine WBC (Auto) Urine Chloride Urine Total Protein Vancomycin Trough Crossmatch 11/20/16 11/20/16 11/20/16 05:00 05:44 11:33 WBC RBC Hgb Hct MCV RDW Plt Count Lymph % (Auto) [place] % (Auto) [place] # Seg Neutrophils % Seg Neuts % (Manual) Lymphocytes % (Manual) Monocytes % (Manual) Basophils % (Manual) Nucleated RBC % Seg Neutrophils # Seg Neutrophils # Man Lymphocytes # (Manual) Monocytes # (Manual) Eosinophils # (Manual) Basophils # (Manual) PT INR APTT Heparin Anti-Xa Level POC ABG pH POC ABG pCO2 POC ABG pO2 Sodium Potassium 3.4 L Chloride 107.4 H Carbon Dioxide 20 L BUN Creatinine Glucose 140 H POC Glucose 163 H 108 H Calcium 7.2 L Phosphorus Magnesium AST Alkaline Phosphatase Troponin T C-Reactive Protein Total Protein Albumin Triglycerides HDL Cholesterol Lipase Vitamin B12 TSH Urine WBC (Auto) Urine Chloride Urine Total Protein Vancomycin Trough Crossmatch 11/20/16 11/20/16 11/20/16 13:03 16:45 23:26 WBC RBC Hgb Hct MCV RDW Plt Count Lymph % (Auto) [place] % (Auto) [place] # Seg Neutrophils % Seg Neuts % (Manual) Lymphocytes % (Manual) Monocytes % (Manual) Basophils % (Manual) Nucleated RBC % Seg Neutrophils # Seg Neutrophils # Man Lymphocytes # (Manual) Monocytes # (Manual) Eosinophils # (Manual) Basophils # (Manual) PT INR APTT Heparin Anti-Xa Level POC ABG pH POC ABG pCO2 POC ABG pO2 Sodium Potassium Chloride Carbon Dioxide BUN Creatinine Glucose POC Glucose 113 H 168 H Calcium Phosphorus Magnesium AST Alkaline Phosphatase Troponin T C-Reactive Protein Total Protein Albumin Triglycerides HDL Cholesterol Lipase Vitamin B12 TSH Urine WBC (Auto) Urine Chloride Urine Total Protein Vancomycin Trough 45.8 H Crossmatch 11/21/16 11/21/16 11/21/16 05:00 05:27 09:50 WBC RBC Hgb Hct MCV RDW Plt Count Lymph % (Auto) [place] % (Auto) [place] # Seg Neutrophils % Seg Neuts % (Manual) Lymphocytes % (Manual) Monocytes % (Manual) Basophils % (Manual) Nucleated RBC % Seg Neutrophils # Seg Neutrophils # Man Lymphocytes # (Manual) Monocytes # (Manual) Eosinophils # (Manual) Basophils # (Manual) PT INR APTT Heparin Anti-Xa Level POC ABG pH POC ABG pCO2 POC ABG pO2 Sodium 133 L D Potassium Chloride Carbon Dioxide 19 L BUN Creatinine Glucose 280 H POC Glucose 222 H Calcium 7.4 L Phosphorus Magnesium AST Alkaline Phosphatase Troponin T C-Reactive Protein Total Protein Albumin Triglycerides HDL Cholesterol Lipase Vitamin B12 TSH Urine WBC (Auto) Urine Chloride Urine Total Protein Vancomycin Trough 30.4 H Crossmatch 11/21/16 11/21/16 11/21/16 12:36 17:17 18:34 WBC RBC Hgb Hct MCV RDW Plt Count Lymph % (Auto) [place] % (Auto) [place] # Seg Neutrophils % Seg Neuts % (Manual) Lymphocytes % (Manual) Monocytes % (Manual) Basophils % (Manual) Nucleated RBC % Seg Neutrophils # Seg Neutrophils # Man Lymphocytes # (Manual) Monocytes # (Manual) Eosinophils # (Manual) Basophils # (Manual) PT INR APTT Heparin Anti-Xa Level POC ABG pH POC ABG pCO2 POC ABG pO2 Sodium Potassium Chloride Carbon Dioxide BUN Creatinine Glucose POC Glucose 306 H 339 H 318 H Calcium Phosphorus Magnesium AST Alkaline Phosphatase Troponin T C-Reactive Protein Total Protein Albumin Triglycerides HDL Cholesterol Lipase Vitamin B12 TSH Urine WBC (Auto) Urine Chloride Urine Total Protein Vancomycin Trough Crossmatch 11/21/16 11/22/16 11/22/16 23:16 07:19 11:49 WBC 11.1 H RBC 2.60 L Hgb 7.8 L Hct 24.4 L MCV RDW 16.3 H Plt Count Lymph % (Auto) [place] % (Auto) [place] # Seg Neutrophils % 76.8 H Seg Neuts % (Manual) Lymphocytes % (Manual) Monocytes % (Manual) Basophils % (Manual) Nucleated RBC % Seg Neutrophils # 8.5 H Seg Neutrophils # Man Lymphocytes # (Manual) Monocytes # (Manual) Eosinophils # (Manual) Basophils # (Manual) PT INR APTT Heparin Anti-Xa Level POC ABG pH POC ABG pCO2 POC ABG pO2 Sodium Potassium Chloride Carbon Dioxide BUN Creatinine Glucose POC Glucose 286 H 371 H Calcium Phosphorus Magnesium AST Alkaline Phosphatase Troponin T C-Reactive Protein Total Protein Albumin Triglycerides HDL Cholesterol Lipase Vitamin B12 TSH Urine WBC (Auto) Urine Chloride Urine Total Protein Vancomycin Trough Crossmatch 11/22/16 11/22/16 11/22/16 11:50 11:50 17:34 WBC RBC Hgb Hct MCV RDW Plt Count Lymph % (Auto) [place] % (Auto) [place] # Seg Neutrophils % Seg Neuts % (Manual) Lymphocytes % (Manual) Monocytes % (Manual) Basophils % (Manual) Nucleated RBC % Seg Neutrophils # Seg Neutrophils # Man Lymphocytes # (Manual) Monocytes # (Manual) Eosinophils # (Manual) Basophils # (Manual) PT INR APTT Heparin Anti-Xa Level POC ABG pH POC ABG pCO2 POC ABG pO2 Sodium 130 L Potassium Chloride Carbon Dioxide 19 L BUN 20 H Creatinine Glucose 266 H POC Glucose 262 H 284 H Calcium 7.2 L Phosphorus Magnesium AST Alkaline Phosphatase Troponin T C-Reactive Protein Total Protein Albumin Triglycerides HDL Cholesterol Lipase Vitamin B12 TSH Urine WBC (Auto) Urine Chloride Urine Total Protein Vancomycin Trough Crossmatch 11/22/16 11/22/16 11/22/16 17:43 20:04 23:38 WBC RBC Hgb Hct MCV RDW Plt Count Lymph % (Auto) [place] % (Auto) [place] # Seg Neutrophils % Seg Neuts % (Manual) Lymphocytes % (Manual) Monocytes % (Manual) Basophils % (Manual) Nucleated RBC % Seg Neutrophils # Seg Neutrophils # Man Lymphocytes # (Manual) Monocytes # (Manual) Eosinophils # (Manual) Basophils # (Manual) PT INR APTT Heparin Anti-Xa Level POC ABG pH 7.492 H POC ABG pCO2 23.2 L POC ABG pO2 60 L Sodium Potassium Chloride Carbon Dioxide BUN Creatinine Glucose POC Glucose 261 H 253 H Calcium Phosphorus Magnesium AST Alkaline Phosphatase Troponin T C-Reactive Protein Total Protein Albumin Triglycerides HDL Cholesterol Lipase Vitamin B12 TSH Urine WBC (Auto) Urine Chloride Urine Total Protein Vancomycin Trough Crossmatch 0411/23/16 11/23/16 06:27 08:20 11:54 WBC RBC Hgb 8.2 L Hct 24.9 L MCV RDW Plt Count Lymph % (Auto) [place] % (Auto) [place] # Seg Neutrophils % Seg Neuts % (Manual) Lymphocytes % (Manual) Monocytes % (Manual) Basophils % (Manual) Nucleated RBC % Seg Neutrophils # Seg Neutrophils # Man Lymphocytes # (Manual) Monocytes # (Manual) Eosinophils # (Manual) Basophils # (Manual) PT INR APTT Heparin Anti-Xa Level POC ABG pH POC ABG pCO2 POC ABG pO2 Sodium Potassium Chloride Carbon Dioxide BUN Creatinine Glucose POC Glucose 333 H 286 H Calcium Phosphorus Magnesium AST Alkaline Phosphatase Troponin T C-Reactive Protein Total Protein Albumin Triglycerides HDL Cholesterol Lipase Vitamin B12 TSH Urine WBC (Auto) Urine Chloride Urine Total Protein Vancomycin Trough Crossmatch 11/23/16 11/23/16 11/24/16 17:53 23:51 00:12 WBC RBC Hgb Hct MCV RDW Plt Count Lymph % (Auto) [place] % (Auto) [place] # Seg Neutrophils % Seg Neuts % (Manual) Lymphocytes % (Manual) Monocytes % (Manual) Basophils % (Manual) Nucleated RBC % Seg Neutrophils # Seg Neutrophils # Man Lymphocytes # (Manual) Monocytes # (Manual) Eosinophils # (Manual) Basophils # (Manual) PT INR APTT Heparin Anti-Xa Level POC ABG pH POC ABG pCO2 POC ABG pO2 Sodium Potassium Chloride Carbon Dioxide BUN Creatinine Glucose POC Glucose 195 H 214 H 223 H Calcium Phosphorus Magnesium AST Alkaline Phosphatase Troponin T C-Reactive Protein Total Protein Albumin Triglycerides HDL Cholesterol Lipase Vitamin B12 TSH Urine WBC (Auto) Urine Chloride Urine Total Protein Vancomycin Trough Crossmatch 11/24/16 11/24/16 11/24/16 04:50 04:50 06:08 WBC RBC 2.74 L Hgb 8.4 L Hct 26.1 L MCV RDW 16.0 H Plt Count Lymph % (Auto) [place] % (Auto) [place] # Seg Neutrophils % Seg Neuts % (Manual) Lymphocytes % (Manual) Monocytes % (Manual) Basophils % (Manual) Nucleated RBC % Seg Neutrophils # Seg Neutrophils # Man Lymphocytes # (Manual) Monocytes # (Manual) Eosinophils # (Manual) Basophils # (Manual) PT INR APTT Heparin Anti-Xa Level POC ABG pH POC ABG pCO2 POC ABG pO2 Sodium 133 L Potassium Chloride Carbon Dioxide 19 L BUN 23 H Creatinine Glucose 200 H POC Glucose 187 H Calcium 7.2 L Phosphorus Magnesium AST Alkaline Phosphatase Troponin T C-Reactive Protein Total Protein Albumin Triglycerides HDL Cholesterol Lipase Vitamin B12 TSH Urine WBC (Auto) Urine Chloride Urine Total Protein Vancomycin Trough Crossmatch 11/24/16 11/24/16 11/24/16 12:02 17:43 23:35 WBC RBC Hgb Hct MCV RDW Plt Count Lymph % (Auto) [place] % (Auto) [place] # Seg Neutrophils % Seg Neuts % (Manual) Lymphocytes % (Manual) Monocytes % (Manual) Basophils % (Manual) Nucleated RBC % Seg Neutrophils # Seg Neutrophils # Man Lymphocytes # (Manual) Monocytes # (Manual) Eosinophils # (Manual) Basophils # (Manual) PT INR APTT Heparin Anti-Xa Level POC ABG pH POC ABG pCO2 POC ABG pO2 Sodium Potassium Chloride Carbon Dioxide BUN Creatinine Glucose POC Glucose 250 H 226 H 230 H Calcium Phosphorus Magnesium AST Alkaline Phosphatase Troponin T C-Reactive Protein Total Protein Albumin Triglycerides HDL Cholesterol Lipase Vitamin B12 TSH Urine WBC (Auto) Urine Chloride Urine Total Protein Vancomycin Trough Crossmatch 11/25/16 11/25/16 11/25/16 05:47 11:37 18:00 WBC RBC Hgb Hct MCV RDW Plt Count Lymph % (Auto) [place] % (Auto) [place] # Seg Neutrophils % Seg Neuts % (Manual) Lymphocytes % (Manual) Monocytes % (Manual) Basophils % (Manual) Nucleated RBC % Seg Neutrophils # Seg Neutrophils # Man Lymphocytes # (Manual) Monocytes # (Manual) Eosinophils # (Manual) Basophils # (Manual) PT INR APTT Heparin Anti-Xa Level POC ABG pH POC ABG pCO2 POC ABG pO2 Sodium Potassium Chloride Carbon Dioxide BUN Creatinine Glucose POC Glucose 229 H 226 H 226 H Calcium Phosphorus Magnesium AST Alkaline Phosphatase Troponin T C-Reactive Protein Total Protein Albumin Triglycerides HDL Cholesterol Lipase Vitamin B12 TSH Urine WBC (Auto) Urine Chloride Urine Total Protein Vancomycin Trough Crossmatch 11/26/16 11/26/16 11/26/16 05:43 12:05 17:05 WBC RBC Hgb Hct MCV RDW Plt Count Lymph % (Auto) [place] % (Auto) [place] # Seg Neutrophils % Seg Neuts % (Manual) Lymphocytes % (Manual) Monocytes % (Manual) Basophils % (Manual) Nucleated RBC % Seg Neutrophils # Seg Neutrophils # Man Lymphocytes # (Manual) Monocytes # (Manual) Eosinophils # (Manual) Basophils # (Manual) PT INR APTT Heparin Anti-Xa Level POC ABG pH POC ABG pCO2 POC ABG pO2 Sodium Potassium Chloride Carbon Dioxide BUN Creatinine Glucose POC Glucose 262 H 260 H 193 H Calcium Phosphorus Magnesium AST Alkaline Phosphatase Troponin T C-Reactive Protein Total Protein Albumin Triglycerides HDL Cholesterol Lipase Vitamin B12 TSH Urine WBC (Auto) Urine Chloride Urine Total Protein Vancomycin Trough Crossmatch 11/26/16 11/27/16 11/27/16 23:46 05:49 12:36 WBC RBC Hgb Hct MCV RDW Plt Count Lymph % (Auto) [place] % (Auto) [place] # Seg Neutrophils % Seg Neuts % (Manual) Lymphocytes % (Manual) Monocytes % (Manual) Basophils % (Manual) Nucleated RBC % Seg Neutrophils # Seg Neutrophils # Man Lymphocytes # (Manual) Monocytes # (Manual) Eosinophils # (Manual) Basophils # (Manual) PT INR APTT Heparin Anti-Xa Level POC ABG pH POC ABG pCO2 POC ABG pO2 Sodium Potassium Chloride Carbon Dioxide BUN Creatinine Glucose POC Glucose 183 H 182 H 250 H Calcium Phosphorus Magnesium AST Alkaline Phosphatase Troponin T C-Reactive Protein Total Protein Albumin Triglycerides HDL Cholesterol Lipase Vitamin B12 TSH Urine WBC (Auto) Urine Chloride Urine Total Protein Vancomycin Trough Crossmatch 11/27/16 11/27/16 11/27/16 17:02 17:45 22:42 WBC RBC Hgb Hct MCV RDW Plt Count Lymph % (Auto) [place] % (Auto) [place] # Seg Neutrophils % Seg Neuts % (Manual) Lymphocytes % (Manual) Monocytes % (Manual) Basophils % (Manual) Nucleated RBC % Seg Neutrophils # Seg Neutrophils # Man Lymphocytes # (Manual) Monocytes # (Manual) Eosinophils # (Manual) Basophils # (Manual) PT INR APTT Heparin Anti-Xa Level POC ABG pH 7.331 L POC ABG pCO2 POC ABG pO2 46 L Sodium Potassium Chloride Carbon Dioxide BUN Creatinine Glucose POC Glucose 275 H Calcium Phosphorus Magnesium AST Alkaline Phosphatase Troponin T 0.093 H C-Reactive Protein Total Protein Albumin Triglycerides HDL Cholesterol Lipase Vitamin B12 TSH Urine WBC (Auto) Urine Chloride Urine Total Protein Vancomycin Trough Crossmatch 11/27/16 11/28/16 11/28/16 23:28 05:46 05:46 WBC RBC 2.88 L Hgb 8.9 L Hct 27.7 L MCV RDW 17.2 H Plt Count Lymph % (Auto) [place] % (Auto) [place] # Seg Neutrophils % Seg Neuts % (Manual) Lymphocytes % (Manual) Monocytes % (Manual) Basophils % (Manual) Nucleated RBC % Seg Neutrophils # Seg Neutrophils # Man Lymphocytes # (Manual) Monocytes # (Manual) Eosinophils # (Manual) Basophils # (Manual) PT 15.1 H INR 1.20 H APTT Heparin Anti-Xa Level POC ABG pH POC ABG pCO2 POC ABG pO2 Sodium Potassium Chloride Carbon Dioxide BUN Creatinine Glucose POC Glucose 237 H Calcium Phosphorus Magnesium AST Alkaline Phosphatase Troponin T C-Reactive Protein Total Protein Albumin Triglycerides HDL Cholesterol Lipase Vitamin B12 TSH Urine WBC (Auto) Urine Chloride Urine Total Protein Vancomycin Trough Crossmatch 11/28/16 11/28/16 11/28/16 05:46 05:46 05:56 WBC RBC Hgb Hct MCV RDW Plt Count Lymph % (Auto) [place] % (Auto) [place] # Seg Neutrophils % Seg Neuts % (Manual) Lymphocytes % (Manual) Monocytes % (Manual) Basophils % (Manual) Nucleated RBC % Seg Neutrophils # Seg Neutrophils # Man Lymphocytes # (Manual) Monocytes # (Manual) Eosinophils # (Manual) Basophils # (Manual) PT INR APTT Heparin Anti-Xa Level POC ABG pH POC ABG pCO2 POC ABG pO2 Sodium Potassium Chloride Carbon Dioxide 21 L BUN 27 H Creatinine Glucose 237 H POC Glucose 275 H Calcium 8.1 L Phosphorus Magnesium AST Alkaline Phosphatase Troponin T 0.090 H C-Reactive Protein Total Protein Albumin Triglycerides 154 H HDL Cholesterol 38 L Lipase Vitamin B12 TSH Urine WBC (Auto) Urine Chloride Urine Total Protein Vancomycin Trough Crossmatch 11/28/16 11/28/16 11/28/16 11:20 18:16 23:30 WBC RBC Hgb Hct MCV RDW Plt Count Lymph % (Auto) [place] % (Auto) [place] # Seg Neutrophils % Seg Neuts % (Manual) Lymphocytes % (Manual) Monocytes % (Manual) Basophils % (Manual) Nucleated RBC % Seg Neutrophils # Seg Neutrophils # Man Lymphocytes # (Manual) Monocytes # (Manual) Eosinophils # (Manual) Basophils # (Manual) PT INR APTT Heparin Anti-Xa Level POC ABG pH POC ABG pCO2 POC ABG pO2 Sodium Potassium Chloride Carbon Dioxide BUN Creatinine Glucose POC Glucose 277 H 222 H 143 H Calcium Phosphorus Magnesium AST Alkaline Phosphatase Troponin T C-Reactive Protein Total Protein Albumin Triglycerides HDL Cholesterol Lipase Vitamin B12 TSH Urine WBC (Auto) Urine Chloride Urine Total Protein Vancomycin Trough Crossmatch 11/29/16 11/29/1617 04:46 05:42 12:10 WBC RBC Hgb Hct MCV RDW Plt Count Lymph % (Auto) [place] % (Auto) [place] # Seg Neutrophils % Seg Neuts % (Manual) Lymphocytes % (Manual) Monocytes % (Manual) Basophils % (Manual) Nucleated RBC % Seg Neutrophils # Seg Neutrophils # Man Lymphocytes # (Manual) Monocytes # (Manual) Eosinophils # (Manual) Basophils # (Manual) PT 16.7 H INR 1.36 H APTT Heparin Anti-Xa Level POC ABG pH POC ABG pCO2 POC ABG pO2 Sodium Potassium Chloride Carbon Dioxide BUN Creatinine Glucose POC Glucose 165 H 232 H Calcium Phosphorus Magnesium AST Alkaline Phosphatase Troponin T C-Reactive Protein Total Protein Albumin Triglycerides HDL Cholesterol Lipase Vitamin B12 TSH Urine WBC (Auto) Urine Chloride Urine Total Protein Vancomycin Trough Crossmatch 11/29/16 11/30/16 11/30/16 18:09 00:04 05:04 WBC RBC Hgb Hct MCV RDW Plt Count Lymph % (Auto) [place] % (Auto) [place] # Seg Neutrophils % Seg Neuts % (Manual) Lymphocytes % (Manual) Monocytes % (Manual) Basophils % (Manual) Nucleated RBC % Seg Neutrophils # Seg Neutrophils # Man Lymphocytes # (Manual) Monocytes # (Manual) Eosinophils # (Manual) Basophils # (Manual) PT 17.8 H INR 1.47 H APTT Heparin Anti-Xa Level POC ABG pH POC ABG pCO2 POC ABG pO2 Sodium Potassium Chloride Carbon Dioxide BUN Creatinine Glucose POC Glucose 214 H 110 H Calcium Phosphorus Magnesium AST Alkaline Phosphatase Troponin T C-Reactive Protein Total Protein Albumin Triglycerides HDL Cholesterol Lipase Vitamin B12 TSH Urine WBC (Auto) Urine Chloride Urine Total Protein Vancomycin Trough Crossmatch 11/30/16 11/30/16 11/30/16 05:46 11:59 17:51 WBC RBC Hgb Hct MCV RDW Plt Count Lymph % (Auto) [place] % (Auto) [place] # Seg Neutrophils % Seg Neuts % (Manual) Lymphocytes % (Manual) Monocytes % (Manual) Basophils % (Manual) Nucleated RBC % Seg Neutrophils # Seg Neutrophils # Man Lymphocytes # (Manual) Monocytes # (Manual) Eosinophils # (Manual) Basophils # (Manual) PT INR APTT Heparin Anti-Xa Level POC ABG pH POC ABG pCO2 POC ABG pO2 Sodium Potassium Chloride Carbon Dioxide BUN Creatinine Glucose POC Glucose 118 H 163 H 134 H Calcium Phosphorus Magnesium AST Alkaline Phosphatase Troponin T C-Reactive Protein Total Protein Albumin Triglycerides HDL Cholesterol Lipase Vitamin B12 TSH Urine WBC (Auto) Urine Chloride Urine Total Protein Vancomycin Trough Crossmatch 11/30/16 12/01/16 12/01/16 23:48 05:43 07:25 WBC RBC Hgb Hct MCV RDW Plt Count Lymph % (Auto) [place] % (Auto) [place] # Seg Neutrophils % Seg Neuts % (Manual) Lymphocytes % (Manual) Monocytes % (Manual) Basophils % (Manual) Nucleated RBC % Seg Neutrophils # Seg Neutrophils # Man Lymphocytes # (Manual) Monocytes # (Manual) Eosinophils # (Manual) Basophils # (Manual) PT 19.6 H INR 1.66 H APTT Heparin Anti-Xa Level POC ABG pH POC ABG pCO2 POC ABG pO2 Sodium Potassium Chloride Carbon Dioxide BUN Creatinine Glucose POC Glucose 127 H 161 H Calcium Phosphorus Magnesium AST Alkaline Phosphatase Troponin T C-Reactive Protein Total Protein Albumin Triglycerides HDL Cholesterol Lipase Vitamin B12 TSH Urine WBC (Auto) Urine Chloride Urine Total Protein Vancomycin Trough Crossmatch 12/01/16 12/01/16 12/01/16 11:45 17:24 23:42 WBC RBC Hgb Hct MCV RDW Plt Count Lymph % (Auto) [place] % (Auto) [place] # Seg Neutrophils % Seg Neuts % (Manual) Lymphocytes % (Manual) Monocytes % (Manual) Basophils % (Manual) Nucleated RBC % Seg Neutrophils # Seg Neutrophils # Man Lymphocytes # (Manual) Monocytes # (Manual) Eosinophils # (Manual) Basophils # (Manual) PT INR APTT Heparin Anti-Xa Level POC ABG pH POC ABG pCO2 POC ABG pO2 Sodium Potassium Chloride Carbon Dioxide BUN Creatinine Glucose POC Glucose 187 H 113 H 132 H Calcium Phosphorus Magnesium AST Alkaline Phosphatase Troponin T C-Reactive Protein Total Protein Albumin Triglycerides HDL Cholesterol Lipase Vitamin B12 TSH Urine WBC (Auto) Urine Chloride Urine Total Protein Vancomycin Trough Crossmatch 12/02/16 12/02/16 12/02/16 05:07 05:14 11:31 WBC RBC Hgb Hct MCV RDW Plt Count Lymph % (Auto) [place] % (Auto) [place] # Seg Neutrophils % Seg Neuts % (Manual) Lymphocytes % (Manual) Monocytes % (Manual) Basophils % (Manual) Nucleated RBC % Seg Neutrophils # Seg Neutrophils # Man Lymphocytes # (Manual) Monocytes # (Manual) Eosinophils # (Manual) Basophils # (Manual) PT 20.3 H INR 1.74 H APTT Heparin Anti-Xa Level POC ABG pH POC ABG pCO2 POC ABG pO2 Sodium Potassium Chloride Carbon Dioxide BUN Creatinine Glucose POC Glucose 172 H 209 H Calcium Phosphorus Magnesium AST Alkaline Phosphatase Troponin T C-Reactive Protein Total Protein Albumin Triglycerides HDL Cholesterol Lipase Vitamin B12 TSH Urine WBC (Auto) Urine Chloride Urine Total Protein Vancomycin Trough Crossmatch 12/02/16 12/02/16 12/03/16 13:59 17:30 04:00 WBC RBC Hgb 7.9 L Hct 25.1 L MCV RDW Plt Count Lymph % (Auto) [place] % (Auto) [place] # Seg Neutrophils % Seg Neuts % (Manual) Lymphocytes % (Manual) Monocytes % (Manual) Basophils % (Manual) Nucleated RBC % Seg Neutrophils # Seg Neutrophils # Man Lymphocytes # (Manual) Monocytes # (Manual) Eosinophils # (Manual) Basophils # (Manual) PT INR APTT Heparin Anti-Xa Level POC ABG pH POC ABG pCO2 POC ABG pO2 Sodium Potassium Chloride Carbon Dioxide BUN Creatinine Glucose POC Glucose 200 H 160 H Calcium Phosphorus Magnesium AST Alkaline Phosphatase Troponin T C-Reactive Protein Total Protein Albumin Triglycerides HDL Cholesterol Lipase Vitamin B12 TSH Urine WBC (Auto) Urine Chloride Urine Total Protein Vancomycin Trough Crossmatch 12/03/16 12/03/16 12/03/16 05:27 05:29 11:22 WBC RBC Hgb Hct MCV RDW Plt Count Lymph % (Auto) [place] % (Auto) [place] # Seg Neutrophils % Seg Neuts % (Manual) Lymphocytes % (Manual) Monocytes % (Manual) Basophils % (Manual) Nucleated RBC % Seg Neutrophils # Seg Neutrophils # Man Lymphocytes # (Manual) Monocytes # (Manual) Eosinophils # (Manual) Basophils # (Manual) PT 19.6 H INR 1.66 H APTT Heparin Anti-Xa Level POC ABG pH POC ABG pCO2 POC ABG pO2 Sodium Potassium Chloride Carbon Dioxide BUN Creatinine Glucose POC Glucose 149 H 222 H Calcium Phosphorus Magnesium AST Alkaline Phosphatase Troponin T C-Reactive Protein Total Protein Albumin Triglycerides HDL Cholesterol Lipase Vitamin B12 TSH Urine WBC (Auto) Urine Chloride Urine Total Protein Vancomycin Trough Crossmatch 12/03/16 12/04/16 12/04/16 16:47 00:25 05:20 WBC RBC Hgb Hct MCV RDW Plt Count Lymph % (Auto) [place] % (Auto) [place] # Seg Neutrophils % Seg Neuts % (Manual) Lymphocytes % (Manual) Monocytes % (Manual) Basophils % (Manual) Nucleated RBC % Seg Neutrophils # Seg Neutrophils # Man Lymphocytes # (Manual) Monocytes # (Manual) Eosinophils # (Manual) Basophils # (Manual) PT 15.8 H INR 1.27 H APTT Heparin Anti-Xa Level POC ABG pH POC ABG pCO2 POC ABG pO2 Sodium Potassium Chloride Carbon Dioxide BUN Creatinine Glucose POC Glucose 149 H 154 H Calcium Phosphorus Magnesium AST Alkaline Phosphatase Troponin T C-Reactive Protein Total Protein Albumin Triglycerides HDL Cholesterol Lipase Vitamin B12 TSH Urine WBC (Auto) Urine Chloride Urine Total Protein Vancomycin Trough Crossmatch 12/04/16 12/04/16 12/04/16 05:42 11:45 13:12 WBC RBC Hgb Hct MCV RDW Plt Count Lymph % (Auto) [place] % (Auto) [place] # Seg Neutrophils % Seg Neuts % (Manual) Lymphocytes % (Manual) Monocytes % (Manual) Basophils % (Manual) Nucleated RBC % Seg Neutrophils # Seg Neutrophils # Man Lymphocytes # (Manual) Monocytes # (Manual) Eosinophils # (Manual) Basophils # (Manual) PT INR APTT Heparin Anti-Xa Level POC ABG pH POC ABG pCO2 POC ABG pO2 Sodium Potassium Chloride Carbon Dioxide BUN 29 H Creatinine Glucose 208 H POC Glucose 198 H 221 H Calcium Phosphorus Magnesium AST Alkaline Phosphatase Troponin T C-Reactive Protein Total Protein Albumin Triglycerides HDL Cholesterol Lipase Vitamin B12 TSH Urine WBC (Auto) Urine Chloride Urine Total Protein Vancomycin Trough Crossmatch Allied health notes reviewed: RT
[2016-12-05] MEDS: LASIX IV SCH ×2 (13:00→23:53)
--- NOTE | 2016-12-05 18:56 | Progress Note ---
Assessment and Plan Assessment and plan: Patient is a 66-year-old woman who presented with lethargy and altered mental status with possible anoxic injury unknown duration of how long she was down for she deteriorated and was intubated in emergency room, she was managed for DKA and she also developed sepsis due to UTI and right lower extremity ischemia- > Cold right foot which I discovered on Rounds on 10/17/16 and I asked the nurse for the bedside doppler which showed no pulse, My exam on the morning of morning has changed, she had a pulse right foot. Arterial duplex revealed a proximal right superficial femoral artery occlusion. I consulted and discussed with Vascular surgery, Dr. Eller ==>Acute ischemic right foot. 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 Remained very difficult to wean from the vent. Although eventually was tolerating pressure support. She subsequently went into cardiac arrest was resuscitated but this time was not able to recover back to following commands as previous before second cardiac arrest. Heparin was discontinued due to CPR. Vascular did not feel at this time that for reactivation of the right lower extremity was needed. Imaging studies were consented for anoxic encephalopathy and cortical irritability although no diagnosis of brain was noted. Dr. Mcclure discussed with family extensively and has informed them about real possibility of not having any meaningful neurological recovery. They agreed with transfer to a skilled facility with vent Ability. Case management is working and is meantime we'll continue current therapy and management. -S/P cardiopulomary arrest x 2 -ACUTE DVT IN THE RT.AXILLARY VEIN EXTENDING TO THE RT.BRACHIAL VEIN -A/C respiratory failure with hypercapnea -Seizure-Per family prior hx -DM, s/p DKA -Hyponatremia -Acute limb ischemia of right lower ext due to SFA thrombosis- s/p right BKA -LUCY/CKD 3 likely vasomotor nephropathy-resolved -Sepsis, Strept Group B tracheobronchitis, poa- Multifactorial -Anemia of chronic disease -Hematuria -Metabolic acidosis -Severe Hypokalemia-RESOLVED -Pancreatitis, acute, poa -Vaginal candidiasis -Hypernatremia -MSOF, poa Plan: * s/p EEG - findings consistent with anoxic encephalopathy and cortical irritability * Neurology notes intact brain stem * Restarted on anticaogulation * PSV as tolerated * Family updated about the very real possibility of not having any meaningful neurological recovery. all questions answered. Family meeting with daughter, and grandchild with greatgrand child in attendance. Case mangement and social work manager and bedside nurse were also present. * Poor prognosis. * Plan for transfer to [facility] acute care facility pending * MRI brain with no gross abnormality * adjust insulin therapy * Neurologic input noted. EEG abnormal. * Heparin had to be held due to the risk associated considering recent CPR with chest compressions. * vascular following up on right BKA remains poor prognosis and likely will need a conversion to AKA. * Continue subcutaneous insulin and electrolyte replacement * Continue Cardizem and beta juan antonio * Monitor electrolytes and hemoglobin. * continue dilantin * DVT and GI prophylaxis Disposition: Placement? snf with vent capabilities vs ltach. Facility out in [place] [facility] had accepted, just waiting on bed Poor prognosis 35 minutes critical care time History Interval history: Patient seen and examined remains on ventilatory support, still not following commands. No adverse events reported by nursing staff. No family at bedside today. Hospitalist Physical - Physical exam Narrative exam: VITAL SIGNS: Reviewed. GENERAL: vent support Vital signs as documented. HEAD: No signs of head trauma. EYES: Pupils are equal. EARS: Unable to assess MOUTH: missing dentition NECK: Trach CHEST: Chest with diminshed CARDIAC: Regular rate and rhythm. S1 and S2, without murmurs, gallops, or rubs. VASCULAR: trace Edema. Peripheral pulses left lower ext ABDOMEN: Soft, No rebound or guarding, and no masses palpated. Bowel Sounds normal. MUSCULOSKELETAL: BKA right lower extremity dressing in place. Some necrosis to the lateral aspect. NEUROLOGIC EXAM: not following commands, opens and closes eyes none purposeful PSYCHIATRIC: unable to assess SKIN: dressing to right lower ext stump, superficial necrosis, dressing in place - Constitutional Vitals: Temp Pulse Resp BP Pulse Ox 98.1 F 91 H 33 H 172/80 100 12/05/16 16:00 12/05/16 18:30 12/05/16 18:30 12/05/16 18:30 12/05/16 18:30 General appearance: Present: other (intubated) Results - Labs CBC & Chem 7: 12/02/16 13:59 12/04/16 13:12 Labs: Laboratory Last Values WBC 10.5 K/mm3 (4.5-11.0) 11/28/16 05:46 RBC 2.88 M/mm3 (3.65-5.03) L 11/28/16 05:46 Hgb 7.9 gm/dl (10.1-14.3) L 12/02/16 13:59 Hct 25.1 % (30.3-42.9) L 12/02/16 13:59 MCV 96 fl (79-97) 11/28/16 05:46 MCH 31 pg (28-32) 11/28/16 05:46 MCHC 32 % (30-34) 11/28/16 05:46 RDW 17.2 % (13.2-15.2) H 11/28/16 05:46 Plt Count 391 K/mm3 (140-440) 11/28/16 05:46 Lymph % (Auto) 14.8 % (13.4-35.0) 11/22/16 11:49 [place] % (Auto) 6.7 % (0.0-7.3) 11/22/16 11:49 Eos % (Auto) 1.1 % (0.0-4.3) 11/22/16 11:49 Baso % (Auto) 0.6 % (0.0-1.8) 11/22/16 11:49 Lymph # 1.6 K/mm3 (1.2-5.4) 11/22/16 11:49 [place] # 0.7 K/mm3 (0.0-0.8) 11/22/16 11:49 Eos # 0.1 K/mm3 (0.0-0.4) 11/22/16 11:49 Baso # 0.1 K/mm3 (0.0-0.1) 11/22/16 11:49 Add Manual Diff Complete 11/18/16 13:00 Total Counted 100 11/18/16 13:00 Seg Neutrophils % 76.8 % (40.0-70.0) H 11/22/16 11:49 Seg Neuts % (Manual) 90.0 % (40.0-70.0) H 11/18/16 13:00 Band Neutrophils % 0 % 11/18/16 13:00 Lymphocytes % (Manual) 8.0 % (13.4-35.0) L 11/18/16 13:00 Reactive Lymphs % (Man) 0 % 11/18/16 13:00 Monocytes % (Manual) 2.0 % (0.0-7.3) 11/18/16 13:00 Eosinophils % (Manual) 0 % (0.0-4.3) 11/18/16 13:00 Basophils % (Manual) 0 % (0.0-1.8) 11/18/16 13:00 Metamyelocytes % 0 % 11/18/16 13:00 Myelocytes % 0 % 11/18/16 13:00 Promyelocytes % 0 % 11/18/16 13:00 Blast Cells % 0 % 11/18/16 13:00 Nucleated RBC % Not Reportable 11/18/16 13:00 Seg Neutrophils # 8.5 K/mm3 (1.8-7.7) H 11/22/16 11:49 Seg Neutrophils # Man 11.3 K/mm3 (1.8-7.7) H 11/18/16 13:00 Band Neutrophils # 0.0 K/mm3 11/18/16 13:00 Lymphocytes # (Manual) 1.0 K/mm3 (1.2-5.4) L 11/18/16 13:00 Abs React Lymphs (Man) 0.0 K/mm3 11/18/16 13:00 Monocytes # (Manual) 0.3 K/mm3 (0.0-0.8) 11/18/16 13:00 Eosinophils # (Manual) 0.0 K/mm3 (0.0-0.4) 11/18/16 13:00 Basophils # (Manual) 0.0 K/mm3 (0.0-0.1) 11/18/16 13:00 Metamyelocytes # 0.0 K/mm3 11/18/16 13:00 Myelocytes # 0.0 K/mm3 11/18/16 13:00 Promyelocytes # 0.0 K/mm3 11/18/16 13:00 Blast Cells # 0.0 K/mm3 11/18/16 13:00 Pathologist Review 10/29/16 09:30 WBC Morphology Not Reportable 11/18/16 13:00 Hypersegmented Neuts Not Reportable 11/18/16 13:00 Hyposegmented Neuts Not Reportable 11/18/16 13:00 Hypogranular Neuts Not Reportable 11/18/16 13:00 Hypersegmented Polys TNR 10/17/16 07:08 Smudge Cells Not Reportable 11/18/16 13:00 Toxic Granulation Not Reportable 11/18/16 13:00 Toxic Vacuolation Not Reportable 11/18/16 13:00 Dohle Bodies Not Reportable 11/18/16 13:00 Pelger-Huet Anomaly Not Reportable 11/18/16 13:00 Alka Rods Not Reportable 11/18/16 13:00 Platelet Estimate Consistent w auto 11/18/16 13:00 Clumped Platelets Not Reportable 11/18/16 13:00 Plt Clumps, EDTA Not Reportable 11/18/16 13:00 Large Platelets Not Reportable 11/18/16 13:00 Giant Platelets Not Reportable 11/18/16 13:00 Platelet Satelliting Not Reportable 11/18/16 13:00 Plt Morphology Comment Not Reportable 11/18/16 13:00 RBC Morphology Not Reportable 11/18/16 13:00 Dimorphic RBCs Not Reportable 11/18/16 13:00 Polychromasia Not Reportable 11/18/16 13:00 Hypochromasia Not Reportable 11/18/16 13:00 Poikilocytosis Not Reportable 11/18/16 13:00 Basophilic Stippling TNR 10/17/16 07:08 Anisocytosis 1+ 11/18/16 13:00 Microcytosis Not Reportable 11/18/16 13:00 Macrocytosis Not Reportable 11/18/16 13:00 Spherocytes Not Reportable 11/18/16 13:00 Pappenheimer Bodies Not Reportable 11/18/16 13:00 Sickle Cells Not Reportable 11/18/16 13:00 Target Cells Not Reportable 11/18/16 13:00 Tear Drop Cells Not Reportable 11/18/16 13:00 Ovalocytes Not Reportable 11/18/16 13:00 Stomatocytes Few 11/03/16 00:05 Helmet Cells Not Reportable 11/18/16 13:00 [place] Bodies Not Reportable 11/18/16 13:00 Pur[place]ar Rings Not Reportable 11/18/16 13:00 [place] Cells Not Reportable 11/18/16 13:00 Bite Cells Not Reportable 11/18/16 13:00 Crenated Cell Not Reportable 11/18/16 13:00 Elliptocytes Not Reportable 11/18/16 13:00 Acanthocytes (Spur) Not Reportable 11/18/16 13:00 Rouleaux Not Reportable 11/18/16 13:00 Hemoglobin C Crystals Not Reportable 11/18/16 13:00 Schistocytes Not Reportable 11/18/16 13:00 Malaria parasites Not Reportable 11/18/16 13:00 David Bodies Not Reportable 11/18/16 13:00 Hem Pathologist Commnt No 11/18/16 13:00 PT 15.8 Sec. (12.2-14.9) H 12/04/16 05:20 INR 1.27 (0.87-1.13) H 12/04/16 05:20 APTT 131.1 Sec. (24.2-36.6) H* 11/18/16 05:45 Heparin Anti-Xa Level 0.51 U.I./ml (0.3-0.7) 11/18/16 11:16 POC ABG pH 7.331 (7.35-7.45) L 11/27/16 17:45 POC ABG pCO2 38.1 (35-45) 11/27/16 17:45 POC ABG pO2 46 (80-105) L 11/27/16 17:45 POC ABG HCO3 20.1 11/27/16 17:45 POC ABG Total CO2 21 11/27/16 17:45 POC ABG O2 Sat 79 11/27/16 17:45 POC ABG Base Excess -6 11/27/16 17:45 VBG pH 7.020 (7.320-7.420) L* 10/13/16 04:22 FiO2 40 % 11/27/16 17:45 Sodium 144 mmol/L (137-145) 12/04/16 13:12 Potassium 4.2 mmol/L (3.6-5.0) 12/04/16 13:12 Chloride 106.4 mmol/L (98-107) 12/04/16 13:12 Carbon Dioxide 24 mmol/L (22-30) 12/04/16 13:12 Anion Gap 18 mmol/L 12/04/16 13:12 BUN 29 mg/dL (7-17) H 12/04/16 13:12 Creatinine 0.7 mg/dL (0.7-1.2) 12/04/16 13:12 Estimated GFR > 60 ml/min 12/04/16 13:12 BUN/Creatinine Ratio 41.42 % 12/04/16 13:12 Glucose 208 mg/dL (65-100) H 12/04/16 13:12 POC Glucose 205 (70-105) H 12/05/16 14:30 Osmolality 332 Mosm/kg 10/14/16 07:03 Lactic Acid 1.8 mmol/L (0.7-2.0) 10/14/16 07:03 Calcium 8.4 mg/dL (8.4-10.2) 12/04/16 13:12 Phosphorus 2.7 mg/dL (2.5-4.5) D 10/21/16 Unknown Magnesium 2.0 mg/dL (1.7-2.3) 11/20/16 05:00 Total Bilirubin 0.2 mg/dL (0.1-1.2) 11/19/16 04:30 AST 9 units/L (5-40) 11/19/16 04:30 ALT 7 units/L (7-56) 11/19/16 04:30 Alkaline Phosphatase 82 units/L (35-129) 11/19/16 04:30 Ammonia 35.0 umol/L (25-60) 10/13/16 05:40 Total Creatine Kinase 107 units/L (30-135) 10/13/16 04:22 CK-MB (CK-2) 3.1 ng/mL (0.0-4.0) 10/13/16 04:22 CK-MB (CK-2) Rel Index 2.8 (0-4) 10/13/16 04:22 Troponin T 0.090 ng/mL (0.00-0.029) H 11/28/16 05:46 C-Reactive Protein 10.50 mg/dL (0.00-1.30) H 10/13/16 16:14 Total Protein 5.5 g/dL (6.3-8.2) L 11/19/16 04:30 Albumin 2.1 g/dL (3.9-5) L 11/19/16 04:30 Albumin/Globulin Ratio 0.6 % 11/19/16 04:30 Triglycerides 154 mg/dL (2-149) H 11/28/16 05:46 Cholesterol 128 mg/dL (50-199) 11/28/16 05:46 LDL Cholesterol Direct 60 mg/dL (50-130) 11/28/16 05:46 HDL Cholesterol 38 mg/dL (40-59) L 11/28/16 05:46 Cholesterol/HDL Ratio 3.36 % 11/28/16 05:46 Amylase 30 units/L (27-131) 11/10/16 04:30 Lipase 41 units/L (13-60) 11/10/16 04:30 Vitamin B12 976.8 pg/mL (211-911) H 10/22/16 10:25 TSH 0.162 mlU/mL (0.270-4.200) L 10/22/16 14:50 Free T4 0.77 ng/dL (0.76-1.46) 10/22/16 14:50 Urine Color Yellow (Yellow) 11/14/16 19:39 Urine Turbidity Cloudy (Clear) 11/14/16 19:39 Urine pH 6.0 (5.0-7.0) 11/14/16 19:39 Ur Specific [place] 1.010 (1.003-1.030) 11/14/16 19:39 Urine Protein 30 mg/dl mg/dL (Negative) 11/14/16 19:39 Urine Glucose (UA) 50 mg/dL (Negative) 11/14/16 19:39 Urine Ketones 20 mg/dL (Negative) 11/14/16 19:39 Urine Blood Lg (Negative) 11/14/16 19:39 Urine Nitrite Neg (Negative) 11/14/16 19:39 Urine Bilirubin Neg (Negative) 11/14/16 19:39 Urine Urobilinogen < 2.0 mg/dL (<2.0) 11/14/16 19:39 Ur Leukocyte Esterase Sm (Negative) 11/14/16 19:39 Urine WBC (Auto) 3.0 /HPF (0.0-6.0) 11/14/16 19:39 Urine RBC (Auto) > 182.0 /HPF (0.0-6.0) 11/14/16 19:39 U Epithel Cells (Auto) 1.0 /HPF (0-13.0) 10/15/16 11:05 Urine Bacteria (Auto) 1+ /HPF (Negative) 11/14/16 19:39 Urine Mucus Few /HPF 03/29/17 19:39 Urine Yeast ([place]) 2+ /HPF 10/15/16 11:05 Urine Osmolality 487 Mosm/kg 10/13/16 Unknown Urine Creatinine < 4.2 mg/dL (0.1-20.0) 10/13/16 Unknown Protein/Creatinin Ratio 0.00 10/13/16 Unknown Urine Sodium 10 mEq/L 10/13/16 Unknown Urine Potassium 1.00 mEq/L 10/13/16 Unknown Urine Chloride 10.0 mEq/L (110-250) L 10/13/16 Unknown Urine Total Protein < 4 mg/dL (5-11.8) L 10/13/16 Unknown Vancomycin Trough 30.4 ug/mL (5.0-20.0) H 11/21/16 09:50 Random Vancomycin 20.8 ug/mL (0-40.0) 11/23/16 04:00 Ketones 107.3 mg/dL (0.2-2.8) H 10/13/16 04:22 Blood Type A POSITIVE 11/03/16 18:01 Antibody Screen Negative 11/03/16 18:01 Crossmatch See Detail 11/03/16 18:01
[2016-12-06] MEDS: DILANTIN FEEDTUBE SCH (05:31)
--- NOTE | 2016-12-06 08:56 | Discharge Summary ---
Providers - Providers Date of Admission: 10/13/16 06:30 Date of discharge: 12/06/16 Attending physician: JOSELITO LANDA 10/13/16 06:42 Consult to Physician [CONS] Routine Consulting Provider: ELIZABETH JAMES Reason For Exam: arf, hi k Place consult to:: nephro Notified:: y Was contact made?: Yes If yes, spoke with:: dr james Time called:: 07:50 10/15/16 19:15 Consult to Wound/ET Nurse [CONS] Stat Reason For Exam: wound eval- incision area midline, few open areas, 10/17/16 11:15 Consult to Physician [CONS] Routine Consulting Provider: BENNY PALACIOS Reason For Exam: cool right foot Place consult to:: Dr. Benny Palacios Notified:: yes 10/18/16 08:40 Consult to Dietitian/Nutrition [CONS] Routine Physician Instructions: Reason For Exam: Reason for Consult: Write/Manage Tube Feeding 10/18/16 11:46 PICC Line Insertion [Consult to PICC Line RN] [CONS] Stat Reason For Exam: PICC line insertion Type Line:: PICC 10/19/16 11:16 Consult to Physician [CONS] Urgent Consulting Provider: MICHELL DICKEY Reason For Exam: Metabolic Encephalopathy Place consult to:: Talia Notified:: No 10/19/16 11:36 Consult to Physician [CONS] Routine Consulting Provider: VERA MEDRANO Reason For Exam: persistent fevers Place consult to:: infection disease Notified:: office Phone number called:: [phone] Was contact made?: Yes If yes, spoke with:: estrellita Time called:: 12:00 10/24/16 13:25 Consult to Physician [CONS] Routine Consulting Provider: JOSLYN KANG Reason For Exam: Tracheostomy Placement Place consult to:: [facility] Notified:: office Phone number called:: [phone] Was contact made?: Yes If yes, spoke with:: lilina Time called:: 13:28 11/01/16 08:50 Consult to Wound/ET Nurse [CONS] Urgent Reason For Exam: wound eval rt leg 11/07/16 08:25 Consult to Dietitian/Nutrition [CONS] Routine Physician Instructions: Please assess patient TIKI Reason For Exam: Reason for Consult: Write/Manage Tube Feeding 11/14/16 12:06 Consult to Physician [CONS] Urgent Consulting Provider: YUMIKO PATTERSON Reason For Exam: vomiting Place consult to:: Nadiya Montiel Notified:: yes Phone number called:: [phone] Was contact made?: Yes If yes, spoke with:: Rosalind Gee called:: 12:09 11/14/16 13:28 Consult to Physician [CONS] Urgent Consulting Provider: MICHAEL RENNER Reason For Exam: vomiting Place consult to:: jose de jesus renner Notified:: yes Was contact made?: Yes If yes, spoke with:: Estrellita Gee called:: 13:29 11/19/16 08:29 Consult to Physician [CONS] Urgent Consulting Provider: BILLY SHAW Reason For Exam: rythm change Place consult to:: dr. khanna Notified:: yes Was contact made?: Yes If yes, spoke with:: eusebio Gee called:: 08:30 Comment:: aware of consult 11/19/16 10:50 Consult to Physician [CONS] Routine Consulting Provider: MICHELL DICKEY Reason For Exam: seizure Place consult to:: dr dickey Notified:: dr dickey Phone number called:: ---- Was contact made?: Yes If yes, spoke with:: dr Gee called:: 11:05 Primary care physician: RELIEF PILOT Hospitalization Condition: Poor Disposition: DC/[place] SNF W [facility] CERT - Discharge Diagnoses (1) Acute respiratory failure with hypercapnia Status: Acute Exam - Constitutional Vitals: Temp Pulse Resp BP Pulse Ox 99.3 F 90 18 174/75 100 12/06/16 08:00 12/06/16 08:13 12/06/16 06:30 12/06/16 08:13 12/06/16 08:13 Plan Activity: advance as tolerated Diet: other (Tube feeding) Additional Instructions: 1.Follow with Physician at SNF in 1 day Follow up with: PRIMARY CARE, [Primary Care Provider] - 7 Days Forms: Warfarin Discharge Instruction
[2016-12-06] MEDS: LOPRESSOR PO SCH (09:57)
[2016-12-06] MEDS: LEVEMIR SUB-Q SCH (10:57)
[2016-12-06] MEDS: LOVENOX SUB-Q SCH (10:57)
[2016-12-06] MEDS: PLAVIX PO SCH (10:58)
[2016-12-06] MEDS: ZESTRIL PO SCH (10:58)
[2016-12-06] MEDS: PEPCID PO SCH (10:58)
--- NOTE | 2016-12-06 11:05 | Progress Note ---
Assessment and Plan - Patient Problems (1) Acute respiratory failure with hypercapnia Status: Acute Plan to address problem: - continue aspiration precautions / VAP bundles - continue bronchodilators and pulmonary toilet - continue to wean oxygen to keep sats > 94% - cardiac arrest and post arrest encephalopathy makes weaning likelyhood even poorer - continue PSV trials as tolerated - continue to rest on AC qhs during wean (2) Altered mental status Status: Acute Qualifiers: Altered mental status type: A Coma depth: C Coma timing: C Plan to address problem: - likely anoxic encephalopathy at this point - no active grand-mal seizures - seen by neurology and will follow their recommendations - reviewed EEG and MRI reports and appears overall prognosis guarded at best - continue dilantin (3) LUCY (acute kidney injury) Status: Acute Plan to address problem: - resolved - following I's & O's - tube feeds restarted and tolerating well so far (4) DKA (diabetic ketoacidoses) Status: Acute Qualifiers: Diabetes mellitus type: D Diabetes mellitus complication detail: D Plan to address problem: - resolved - continue SSI - continue levemir (5) Sepsis Status: Acute Qualifiers: Sepsis type: S Plan to address problem: - off antibiotics now - follow clinically - trend lactate and CRP prn (6) Emesis Status: Acute Qualifiers: Vomiting type: V Vomiting Intractability: V Nausea presence: N Plan to address problem: - continue aspiration precautions - GI input appreciated - resolved - off reglan now (7) Discharge planning issues Status: Acute Plan to address problem: - cardiac arrest and potential anoxic encephalopathy makes prognosis more guarded now - LTAC evaluation ongoing still ...for now remains critically ill on life sustaining treatments including MVS and at high risk for further deterioration including ...34' CCT Subjective Date of service: 12/06/16 Principal diagnosis: respiratory failure on mechanical ventilatory support, DKA Interval history: Seen and examined at bedside; 24 hour events reviewed; nursing and respiratory care staff consulted; no adverse overnight events reported to me; resting peacefully; to transfer to LTAC today; no emesis or overt aspiration Objective Vital Signs - 12hr 12/05/16 12/05/16 12/06/16 23:30 23:51 00:00 Temperature 99 F Pulse Rate 77 78 78 Respiratory 28 H 18 25 H Rate Blood Pressure 171/83 170/79 169/75 O2 Sat by Pulse 100 100 100 Oximetry O2 Sat by Pulse Oximetry [ Assessment] 12/06/16 12/06/16 12/06/16 00:25 00:30 01:00 Temperature Pulse Rate 79 82 Respiratory 12 21 Rate Blood Pressure 172/78 172/78 O2 Sat by Pulse 100 99 Oximetry O2 Sat by Pulse 100 Oximetry [ Assessment] 12/06/16 12/06/16 12/06/16 01:30 02:00 02:30 Temperature Pulse Rate 83 83 81 Respiratory 21 22 19 Rate Blood Pressure 162/71 161/71 157/65 O2 Sat by Pulse 100 100 99 Oximetry O2 Sat by Pulse Oximetry [ Assessment] 12/06/16 12/06/16 12/06/16 03:00 03:30 03:48 Temperature Pulse Rate 81 82 94 H Respiratory 10 L 18 Rate Blood Pressure 161/73 159/72 158/70 O2 Sat by Pulse 100 100 100 Oximetry O2 Sat by Pulse Oximetry [ Assessment] 12/06/16 12/06/16 12/06/16 04:00 04:30 05:00 Temperature 99.5 F Pulse Rate 78 83 84 Respiratory 19 13 23 Rate Blood Pressure 154/64 165/78 165/73 O2 Sat by Pulse 100 100 100 Oximetry O2 Sat by Pulse Oximetry [ Assessment] 12/06/16 12/06/16 12/06/16 05:30 06:00 06:30 Temperature Pulse Rate 85 81 82 Respiratory 20 16 18 Rate Blood Pressure 161/69 163/72 166/72 O2 Sat by Pulse 100 100 100 Oximetry O2 Sat by Pulse Oximetry [ Assessment] 12/06/16 12/06/16 12/06/16 07:00 07:30 08:00 Temperature 99.3 F Pulse Rate 89 88 89 Respiratory 31 H 30 H 29 H Rate Blood Pressure 170/74 169/76 174/75 O2 Sat by Pulse 100 100 99 Oximetry O2 Sat by Pulse Oximetry [ Assessment] 12/06/16 12/06/16 12/06/16 08:13 08:30 09:00 Temperature Pulse Rate 90 92 H 95 H Respiratory 25 H 32 H Rate Blood Pressure 174/75 174/73 178/81 O2 Sat by Pulse 100 97 100 Oximetry O2 Sat by Pulse Oximetry [ Assessment] 12/06/16 12/06/16 12/06/16 09:30 09:57 10:00 Temperature Pulse Rate 94 H 90 95 H Respiratory 25 H 28 H Rate Blood Pressure 178/83 170/72 158/80 O2 Sat by Pulse 100 100 Oximetry O2 Sat by Pulse Oximetry [ Assessment] 12/06/16 10:58 Temperature Pulse Rate 90 Respiratory Rate Blood Pressure 178/72 O2 Sat by Pulse Oximetry O2 Sat by Pulse Oximetry [ Assessment] Constitutional: no acute distress, other ( Patient likely has anoxic encephalopathy) Eyes: non-icteric ENT: oropharynx moist Neck: supple, no lymphadenopathy, no JVD Effort: mildly labored Ascultation: Bilateral: diminished breath sounds, rales Cardiovascular: regular rate and rhythm, other (S1,S2, No murmurs) Gastrointestinal: normoactive bowel sounds, soft, non-distended, other ( Gastrostomy tube) Integumentary: normal Extremities: no cyanosis, no edema, no ischemia or petechiae, other (s/p right BKA. right UExt Edema) Neurologic: unable to assess, other (encephalopathic) Psychiatric: other (encephalopathic) CBC and BMP: 12/02/16 13:59 12/04/16 13:12 ABG, PT/INR, D-dimer: ABG POC ABG pH 7.331 (7.35-7.45) L 11/27/16 17:45 POC ABG pCO2 38.1 (35-45) 11/27/16 17:45 POC ABG pO2 46 (80-105) L 11/27/16 17:45 POC ABG HCO3 20.1 11/27/16 17:45 POC ABG Total CO2 21 11/27/16 17:45 POC ABG O2 Sat 79 11/27/16 17:45 PT/INR, D-dimer PT 15.8 Sec. (12.2-14.9) H 12/04/16 05:20 INR 1.27 (0.87-1.13) H 12/04/16 05:20 Abnormal lab findings: Abnormal Labs 10/13/16 10/13/16 10/13/16 06:38 06:38 07:23 WBC RBC Hgb Hct MCV RDW Plt Count Lymph % (Auto) Coleman % (Auto) Coleman # Seg Neutrophils % Seg Neuts % (Manual) Lymphocytes % (Manual) Monocytes % (Manual) Basophils % (Manual) Nucleated RBC % Seg Neutrophils # Seg Neutrophils # Man Lymphocytes # (Manual) Monocytes # (Manual) Eosinophils # (Manual) Basophils # (Manual) PT INR APTT Heparin Anti-Xa Level POC ABG pH POC ABG pCO2 POC ABG pO2 Sodium Potassium 6.2 H* Chloride Carbon Dioxide 8 L* BUN 85 H Creatinine 2.8 H Glucose 602 H* POC Glucose 495 H Calcium 7.9 L Phosphorus 6.9 H D Magnesium 3.0 H AST Alkaline Phosphatase Troponin T C-Reactive Protein Total Protein Albumin Triglycerides HDL Cholesterol Lipase Vitamin B12 TSH Urine WBC (Auto) Urine Chloride Urine Total Protein Vancomycin Trough Crossmatch 10/13/16 10/13/16 10/13/16 08:49 08:55 10:12 WBC RBC Hgb Hct MCV RDW Plt Count Lymph % (Auto) Coleman % (Auto) Coleman # Seg Neutrophils % Seg Neuts % (Manual) Lymphocytes % (Manual) Monocytes % (Manual) Basophils % (Manual) Nucleated RBC % Seg Neutrophils # Seg Neutrophils # Man Lymphocytes # (Manual) Monocytes # (Manual) Eosinophils # (Manual) Basophils # (Manual) PT INR APTT Heparin Anti-Xa Level POC ABG pH POC ABG pCO2 POC ABG pO2 Sodium Potassium 5.6 H Chloride Carbon Dioxide 11 L BUN 77 H Creatinine 2.7 H Glucose 457 H POC Glucose > 500 H 424 H Calcium 8.0 L Phosphorus Magnesium AST Alkaline Phosphatase Troponin T C-Reactive Protein Total Protein Albumin Triglycerides HDL Cholesterol Lipase Vitamin B12 TSH Urine WBC (Auto) Urine Chloride Urine Total Protein Vancomycin Trough Crossmatch 10/13/16 10/13/16 10/13/16 10:44 11:22 12:20 WBC RBC Hgb Hct MCV RDW Plt Count Lymph % (Auto) Coleman % (Auto) Coleman # Seg Neutrophils % Seg Neuts % (Manual) Lymphocytes % (Manual) Monocytes % (Manual) Basophils % (Manual) Nucleated RBC % Seg Neutrophils # Seg Neutrophils # Man Lymphocytes # (Manual) Monocytes # (Manual) Eosinophils # (Manual) Basophils # (Manual) PT INR APTT Heparin Anti-Xa Level POC ABG pH POC ABG pCO2 POC ABG pO2 Sodium Potassium 5.4 H Chloride Carbon Dioxide 14 L BUN 72 H Creatinine 2.6 H Glucose 383 H POC Glucose 391 H 313 H Calcium 8.2 L Phosphorus Magnesium AST Alkaline Phosphatase Troponin T C-Reactive Protein Total Protein Albumin Triglycerides HDL Cholesterol Lipase Vitamin B12 TSH Urine WBC (Auto) Urine Chloride Urine Total Protein Vancomycin Trough Crossmatch 10/13/16 10/13/16 10/13/16 13:32 14:44 15:57 WBC RBC Hgb Hct MCV RDW Plt Count Lymph % (Auto) Coleman % (Auto) Coleman # Seg Neutrophils % Seg Neuts % (Manual) Lymphocytes % (Manual) Monocytes % (Manual) Basophils % (Manual) Nucleated RBC % Seg Neutrophils # Seg Neutrophils # Man Lymphocytes # (Manual) Monocytes # (Manual) Eosinophils # (Manual) Basophils # (Manual) PT INR APTT Heparin Anti-Xa Level POC ABG pH POC ABG pCO2 POC ABG pO2 Sodium Potassium Chloride Carbon Dioxide BUN Creatinine Glucose POC Glucose 296 H 210 H 190 H Calcium Phosphorus Magnesium AST Alkaline Phosphatase Troponin T C-Reactive Protein Total Protein Albumin Triglycerides HDL Cholesterol Lipase Vitamin B12 TSH Urine WBC (Auto) Urine Chloride Urine Total Protein Vancomycin Trough Crossmatch 10/13/16 10/13/16 10/13/16 16:14 16:14 17:17 WBC RBC Hgb Hct MCV RDW Plt Count Lymph % (Auto) Coleman % (Auto) Coleman # Seg Neutrophils % Seg Neuts % (Manual) Lymphocytes % (Manual) Monocytes % (Manual) Basophils % (Manual) Nucleated RBC % Seg Neutrophils # Seg Neutrophils # Man Lymphocytes # (Manual) Monocytes # (Manual) Eosinophils # (Manual) Basophils # (Manual) PT INR APTT Heparin Anti-Xa Level POC ABG pH POC ABG pCO2 POC ABG pO2 Sodium Potassium Chloride Carbon Dioxide 17 L BUN 58 H Creatinine 1.8 H Glucose 172 H POC Glucose 193 H Calcium 7.7 L Phosphorus Magnesium AST Alkaline Phosphatase Troponin T C-Reactive Protein 10.50 H Total Protein Albumin Triglycerides HDL Cholesterol Lipase Vitamin B12 TSH Urine WBC (Auto) Urine Chloride Urine Total Protein Vancomycin Trough Crossmatch 10/13/16 10/13/16 10/13/16 17:55 18:32 19:41 WBC RBC Hgb Hct MCV RDW Plt Count Lymph % (Auto) Coleman % (Auto) Coleman # Seg Neutrophils % Seg Neuts % (Manual) Lymphocytes % (Manual) Monocytes % (Manual) Basophils % (Manual) Nucleated RBC % Seg Neutrophils # Seg Neutrophils # Man Lymphocytes # (Manual) Monocytes # (Manual) Eosinophils # (Manual) Basophils # (Manual) PT INR APTT Heparin Anti-Xa Level POC ABG pH POC ABG pCO2 30.6 L POC ABG pO2 218 H Sodium Potassium Chloride Carbon Dioxide BUN Creatinine Glucose POC Glucose 192 H 177 H Calcium Phosphorus Magnesium AST Alkaline Phosphatase Troponin T C-Reactive Protein Total Protein Albumin Triglycerides HDL Cholesterol Lipase Vitamin B12 TSH Urine WBC (Auto) Urine Chloride Urine Total Protein Vancomycin Trough Crossmatch 10/13/16 10/13/16 10/13/16 20:54 22:07 23:13 WBC RBC Hgb Hct MCV RDW Plt Count Lymph % (Auto) Coleman % (Auto) Coleman # Seg Neutrophils % Seg Neuts % (Manual) Lymphocytes % (Manual) Monocytes % (Manual) Basophils % (Manual) Nucleated RBC % Seg Neutrophils # Seg Neutrophils # Man Lymphocytes # (Manual) Monocytes # (Manual) Eosinophils # (Manual) Basophils # (Manual) PT INR APTT Heparin Anti-Xa Level POC ABG pH POC ABG pCO2 POC ABG pO2 Sodium Potassium Chloride Carbon Dioxide BUN Creatinine Glucose POC Glucose 178 H 160 H 168 H Calcium Phosphorus Magnesium AST Alkaline Phosphatase Troponin T C-Reactive Protein Total Protein Albumin Triglycerides HDL Cholesterol Lipase Vitamin B12 TSH Urine WBC (Auto) Urine Chloride Urine Total Protein Vancomycin Trough Crossmatch 10/13/16 10/13/16 10/14/16 23:25 Unknown 00:21 WBC RBC Hgb Hct MCV RDW Plt Count Lymph % (Auto) Coleman % (Auto) Coleman # Seg Neutrophils % Seg Neuts % (Manual) Lymphocytes % (Manual) Monocytes % (Manual) Basophils % (Manual) Nucleated RBC % Seg Neutrophils # Seg Neutrophils # Man Lymphocytes # (Manual) Monocytes # (Manual) Eosinophils # (Manual) Basophils # (Manual) PT INR APTT Heparin Anti-Xa Level POC ABG pH POC ABG pCO2 POC ABG pO2 Sodium 148 H Potassium Chloride 114.6 H Carbon Dioxide 17 L BUN 56 H Creatinine 1.6 H Glucose 151 H POC Glucose 171 H Calcium 7.8 L Phosphorus Magnesium AST Alkaline Phosphatase Troponin T C-Reactive Protein Total Protein Albumin Triglycerides HDL Cholesterol Lipase Vitamin B12 TSH Urine WBC (Auto) Urine Chloride 10.0 L Urine Total Protein < 4 L Vancomycin Trough Crossmatch 10/14/16 10/14/16 10/14/16 01:22 02:29 03:30 WBC RBC Hgb Hct MCV RDW Plt Count Lymph % (Auto) Coleman % (Auto) Coleman # Seg Neutrophils % Seg Neuts % (Manual) Lymphocytes % (Manual) Monocytes % (Manual) Basophils % (Manual) Nucleated RBC % Seg Neutrophils # Seg Neutrophils # Man Lymphocytes # (Manual) Monocytes # (Manual) Eosinophils # (Manual) Basophils # (Manual) PT INR APTT Heparin Anti-Xa Level POC ABG pH POC ABG pCO2 POC ABG pO2 Sodium Potassium Chloride Carbon Dioxide BUN Creatinine Glucose POC Glucose 144 H 136 H 143 H Calcium Phosphorus Magnesium AST Alkaline Phosphatase Troponin T C-Reactive Protein Total Protein Albumin Triglycerides HDL Cholesterol Lipase Vitamin B12 TSH Urine WBC (Auto) Urine Chloride Urine Total Protein Vancomycin Trough Crossmatch 10/14/16 10/14/16 10/14/16 04:28 05:16 05:44 WBC RBC Hgb Hct MCV RDW Plt Count Lymph % (Auto) Coleman % (Auto) Coleman # Seg Neutrophils % Seg Neuts % (Manual) Lymphocytes % (Manual) Monocytes % (Manual) Basophils % (Manual) Nucleated RBC % Seg Neutrophils # Seg Neutrophils # Man Lymphocytes # (Manual) Monocytes # (Manual) Eosinophils # (Manual) Basophils # (Manual) PT INR APTT Heparin Anti-Xa Level POC ABG pH POC ABG pCO2 28.2 L POC ABG pO2 125 H Sodium Potassium Chloride Carbon Dioxide BUN Creatinine Glucose POC Glucose 133 H 160 H Calcium Phosphorus Magnesium AST Alkaline Phosphatase Troponin T C-Reactive Protein Total Protein Albumin Triglycerides HDL Cholesterol Lipase Vitamin B12 TSH Urine WBC (Auto) Urine Chloride Urine Total Protein Vancomycin Trough Crossmatch 10/14/16 10/14/16 10/14/16 06:12 06:45 07:03 WBC RBC Hgb Hct MCV RDW Plt Count Lymph % (Auto) Coleman % (Auto) Coleman # Seg Neutrophils % Seg Neuts % (Manual) Lymphocytes % (Manual) Monocytes % (Manual) Basophils % (Manual) Nucleated RBC % Seg Neutrophils # Seg Neutrophils # Man Lymphocytes # (Manual) Monocytes # (Manual) Eosinophils # (Manual) Basophils # (Manual) PT INR APTT Heparin Anti-Xa Level POC ABG pH POC ABG pCO2 POC ABG pO2 Sodium 149 H Potassium Chloride 115.4 H Carbon Dioxide 17 L BUN 45 H Creatinine 1.5 H Glucose 139 H POC Glucose 149 H Calcium 7.4 L Phosphorus 1.0 L D Magnesium AST Alkaline Phosphatase Troponin T C-Reactive Protein Total Protein Albumin Triglycerides HDL Cholesterol Lipase Vitamin B12 TSH Urine WBC (Auto) Urine Chloride Urine Total Protein Vancomycin Trough Crossmatch 10/14/16 10/14/16 10/14/16 07:03 08:02 09:16 WBC RBC Hgb Hct MCV RDW Plt Count Lymph % (Auto) Coleman % (Auto) Coleman # Seg Neutrophils % Seg Neuts % (Manual) Lymphocytes % (Manual) Monocytes % (Manual) Basophils % (Manual) Nucleated RBC % Seg Neutrophils # Seg Neutrophils # Man Lymphocytes # (Manual) Monocytes # (Manual) Eosinophils # (Manual) Basophils # (Manual) PT INR APTT Heparin Anti-Xa Level POC ABG pH POC ABG pCO2 POC ABG pO2 Sodium Potassium Chloride Carbon Dioxide BUN Creatinine Glucose POC Glucose 156 H 158 H Calcium Phosphorus Magnesium AST Alkaline Phosphatase Troponin T C-Reactive Protein Total Protein Albumin Triglycerides HDL Cholesterol Lipase 738 H Vitamin B12 TSH Urine WBC (Auto) Urine Chloride Urine Total Protein Vancomycin Trough Crossmatch 10/14/16 10/14/16 10/14/16 10:26 11:03 11:57 WBC RBC Hgb Hct MCV RDW Plt Count Lymph % (Auto) Coleman % (Auto) Coleman # Seg Neutrophils % Seg Neuts % (Manual) Lymphocytes % (Manual) Monocytes % (Manual) Basophils % (Manual) Nucleated RBC % Seg Neutrophils # Seg Neutrophils # Man Lymphocytes # (Manual) Monocytes # (Manual) Eosinophils # (Manual) Basophils # (Manual) PT INR APTT Heparin Anti-Xa Level POC ABG pH 7.198 L POC ABG pCO2 47.5 H POC ABG pO2 Sodium Potassium Chloride Carbon Dioxide BUN Creatinine Glucose POC Glucose 174 H 189 H Calcium Phosphorus Magnesium AST Alkaline Phosphatase Troponin T C-Reactive Protein Total Protein Albumin Triglycerides HDL Cholesterol Lipase Vitamin B12 TSH Urine WBC (Auto) Urine Chloride Urine Total Protein Vancomycin Trough Crossmatch 10/14/16 10/14/16 10/14/16 12:02 12:02 13:11 WBC 13.4 H RBC 3.60 L Hgb Hct MCV 98 H D RDW 13.1 L Plt Count Lymph % (Auto) Coleman % (Auto) Coleman # Seg Neutrophils % Seg Neuts % (Manual) Lymphocytes % (Manual) Monocytes % (Manual) Basophils % (Manual) Nucleated RBC % Seg Neutrophils # Seg Neutrophils # Man Lymphocytes # (Manual) Monocytes # (Manual) Eosinophils # (Manual) Basophils # (Manual) PT INR APTT Heparin Anti-Xa Level POC ABG pH POC ABG pCO2 POC ABG pO2 Sodium Potassium Chloride 110.7 H Carbon Dioxide 19 L BUN 38 H Creatinine 1.4 H Glucose 182 H POC Glucose 173 H Calcium 7.5 L Phosphorus Magnesium AST Alkaline Phosphatase Troponin T C-Reactive Protein Total Protein Albumin Triglycerides HDL Cholesterol Lipase Vitamin B12 TSH Urine WBC (Auto) Urine Chloride Urine Total Protein Vancomycin Trough Crossmatch 10/14/16 10/14/16 10/14/16 14:24 15:31 16:36 WBC RBC Hgb Hct MCV RDW Plt Count Lymph % (Auto) Coleman % (Auto) Coleman # Seg Neutrophils % Seg Neuts % (Manual) Lymphocytes % (Manual) Monocytes % (Manual) Basophils % (Manual) Nucleated RBC % Seg Neutrophils # Seg Neutrophils # Man Lymphocytes # (Manual) Monocytes # (Manual) Eosinophils # (Manual) Basophils # (Manual) PT INR APTT Heparin Anti-Xa Level POC ABG pH POC ABG pCO2 POC ABG pO2 Sodium Potassium Chloride Carbon Dioxide BUN Creatinine Glucose POC Glucose 123 H 124 H 156 H Calcium Phosphorus Magnesium AST Alkaline Phosphatase Troponin T C-Reactive Protein Total Protein Albumin Triglycerides HDL Cholesterol Lipase Vitamin B12 TSH Urine WBC (Auto) Urine Chloride Urine Total Protein Vancomycin Trough Crossmatch 10/14/16 10/14/16 10/14/16 17:43 19:00 20:08 WBC RBC Hgb Hct MCV RDW Plt Count Lymph % (Auto) Coleman % (Auto) Coleman # Seg Neutrophils % Seg Neuts % (Manual) Lymphocytes % (Manual) Monocytes % (Manual) Basophils % (Manual) Nucleated RBC % Seg Neutrophils # Seg Neutrophils # Man Lymphocytes # (Manual) Monocytes # (Manual) Eosinophils # (Manual) Basophils # (Manual) PT INR APTT Heparin Anti-Xa Level POC ABG pH POC ABG pCO2 POC ABG pO2 Sodium Potassium Chloride Carbon Dioxide BUN Creatinine Glucose POC Glucose 154 H 123 H 138 H Calcium Phosphorus Magnesium AST Alkaline Phosphatase Troponin T C-Reactive Protein Total Protein Albumin Triglycerides HDL Cholesterol Lipase Vitamin B12 TSH Urine WBC (Auto) Urine Chloride Urine Total Protein Vancomycin Trough Crossmatch 10/14/16 10/14/16 10/14/16 21:17 22:25 23:37 WBC RBC Hgb Hct MCV RDW Plt Count Lymph % (Auto) Coleman % (Auto) Coleman # Seg Neutrophils % Seg Neuts % (Manual) Lymphocytes % (Manual) Monocytes % (Manual) Basophils % (Manual) Nucleated RBC % Seg Neutrophils # Seg Neutrophils # Man Lymphocytes # (Manual) Monocytes # (Manual) Eosinophils # (Manual) Basophils # (Manual) PT INR APTT Heparin Anti-Xa Level POC ABG pH POC ABG pCO2 POC ABG pO2 Sodium Potassium Chloride Carbon Dioxide BUN Creatinine Glucose POC Glucose 148 H 132 H 137 H Calcium Phosphorus Magnesium AST Alkaline Phosphatase Troponin T C-Reactive Protein Total Protein Albumin Triglycerides HDL Cholesterol Lipase Vitamin B12 TSH Urine WBC (Auto) Urine Chloride Urine Total Protein Vancomycin Trough Crossmatch 10/15/16 10/15/16 10/15/16 00:49 01:53 03:06 WBC RBC Hgb Hct MCV RDW Plt Count Lymph % (Auto) Coleman % (Auto) Coleman # Seg Neutrophils % Seg Neuts % (Manual) Lymphocytes % (Manual) Monocytes % (Manual) Basophils % (Manual) Nucleated RBC % Seg Neutrophils # Seg Neutrophils # Man Lymphocytes # (Manual) Monocytes # (Manual) Eosinophils # (Manual) Basophils # (Manual) PT INR APTT Heparin Anti-Xa Level POC ABG pH POC ABG pCO2 POC ABG pO2 Sodium Potassium Chloride Carbon Dioxide BUN Creatinine Glucose POC Glucose 132 H 134 H 134 H Calcium Phosphorus Magnesium AST Alkaline Phosphatase Troponin T C-Reactive Protein Total Protein Albumin Triglycerides HDL Cholesterol Lipase Vitamin B12 TSH Urine WBC (Auto) Urine Chloride Urine Total Protein Vancomycin Trough Crossmatch 10/15/16 10/15/16 10/15/16 04:40 04:46 06:21 WBC RBC Hgb Hct MCV RDW Plt Count Lymph % (Auto) Coleman % (Auto) Coleman # Seg Neutrophils % Seg Neuts % (Manual) Lymphocytes % (Manual) Monocytes % (Manual) Basophils % (Manual) Nucleated RBC % Seg Neutrophils # Seg Neutrophils # Man Lymphocytes # (Manual) Monocytes # (Manual) Eosinophils # (Manual) Basophils # (Manual) PT INR APTT Heparin Anti-Xa Level POC ABG pH POC ABG pCO2 30.7 L POC ABG pO2 108 H Sodium Potassium Chloride 109.0 H Carbon Dioxide 17 L BUN 27 H Creatinine Glucose 124 H POC Glucose 160 H Calcium 7.5 L Phosphorus Magnesium AST 79 H Alkaline Phosphatase Troponin T C-Reactive Protein Total Protein 5.5 L Albumin 3.0 L Triglycerides HDL Cholesterol Lipase Vitamin B12 TSH Urine WBC (Auto) Urine Chloride Urine Total Protein Vancomycin Trough Crossmatch 10/15/16 10/15/16 10/15/16 07:12 08:01 09:03 WBC RBC Hgb Hct MCV RDW Plt Count Lymph % (Auto) Coleman % (Auto) Coleman # Seg Neutrophils % Seg Neuts % (Manual) Lymphocytes % (Manual) Monocytes % (Manual) Basophils % (Manual) Nucleated RBC % Seg Neutrophils # Seg Neutrophils # Man Lymphocytes # (Manual) Monocytes # (Manual) Eosinophils # (Manual) Basophils # (Manual) PT INR APTT Heparin Anti-Xa Level POC ABG pH POC ABG pCO2 POC ABG pO2 Sodium Potassium Chloride Carbon Dioxide BUN Creatinine Glucose POC Glucose 179 H 187 H 165 H Calcium Phosphorus Magnesium AST Alkaline Phosphatase Troponin T C-Reactive Protein Total Protein Albumin Triglycerides HDL Cholesterol Lipase Vitamin B12 TSH Urine WBC (Auto) Urine Chloride Urine Total Protein Vancomycin Trough Crossmatch 10/15/16 10/15/16 10/15/16 10:06 10:06 10:07 WBC 12.1 H RBC 3.01 L Hgb 9.7 L Hct 29.6 L MCV 98 H RDW Plt Count 129 L Lymph % (Auto) Coleman % (Auto) Coleman # Seg Neutrophils % Seg Neuts % (Manual) Lymphocytes % (Manual) Monocytes % (Manual) Basophils % (Manual) Nucleated RBC % Seg Neutrophils # Seg Neutrophils # Man Lymphocytes # (Manual) Monocytes # (Manual) Eosinophils # (Manual) Basophils # (Manual) PT INR APTT Heparin Anti-Xa Level POC ABG pH POC ABG pCO2 POC ABG pO2 Sodium Potassium 3.2 L D Chloride 109.6 H Carbon Dioxide 18 L BUN 22 H Creatinine Glucose 127 H POC Glucose 147 H Calcium 7.0 L Phosphorus Magnesium AST Alkaline Phosphatase Troponin T C-Reactive Protein Total Protein Albumin Triglycerides HDL Cholesterol Lipase Vitamin B12 TSH Urine WBC (Auto) Urine Chloride Urine Total Protein Vancomycin Trough Crossmatch 10/15/16 10/15/16 10/15/16 11:05 11:06 11:57 WBC RBC Hgb Hct MCV RDW Plt Count Lymph % (Auto) Coleman % (Auto) Coleman # Seg Neutrophils % Seg Neuts % (Manual) Lymphocytes % (Manual) Monocytes % (Manual) Basophils % (Manual) Nucleated RBC % Seg Neutrophils # Seg Neutrophils # Man Lymphocytes # (Manual) Monocytes # (Manual) Eosinophils # (Manual) Basophils # (Manual) PT INR APTT Heparin Anti-Xa Level POC ABG pH 7.305 L POC ABG pCO2 POC ABG pO2 Sodium Potassium Chloride Carbon Dioxide BUN Creatinine Glucose POC Glucose 145 H Calcium Phosphorus Magnesium AST Alkaline Phosphatase Troponin T C-Reactive Protein Total Protein Albumin Triglycerides HDL Cholesterol Lipase Vitamin B12 TSH Urine WBC (Auto) 7.0 H Urine Chloride Urine Total Protein Vancomycin Trough Crossmatch 10/15/16 10/15/16 10/15/16 12:04 13:59 15:24 WBC RBC Hgb Hct MCV RDW Plt Count Lymph % (Auto) Coleman % (Auto) Coleman # Seg Neutrophils % Seg Neuts % (Manual) Lymphocytes % (Manual) Monocytes % (Manual) Basophils % (Manual) Nucleated RBC % Seg Neutrophils # Seg Neutrophils # Man Lymphocytes # (Manual) Monocytes # (Manual) Eosinophils # (Manual) Basophils # (Manual) PT INR APTT Heparin Anti-Xa Level POC ABG pH POC ABG pCO2 POC ABG pO2 Sodium Potassium Chloride Carbon Dioxide BUN Creatinine Glucose POC Glucose 123 H 147 H 153 H Calcium Phosphorus Magnesium AST Alkaline Phosphatase Troponin T C-Reactive Protein Total Protein Albumin Triglycerides HDL Cholesterol Lipase Vitamin B12 TSH Urine WBC (Auto) Urine Chloride Urine Total Protein Vancomycin Trough Crossmatch 10/15/16 10/15/16 10/15/16 16:30 17:34 18:30 WBC RBC Hgb Hct MCV RDW Plt Count Lymph % (Auto) Coleman % (Auto) Coleman # Seg Neutrophils % Seg Neuts % (Manual) Lymphocytes % (Manual) Monocytes % (Manual) Basophils % (Manual) Nucleated RBC % Seg Neutrophils # Seg Neutrophils # Man Lymphocytes # (Manual) Monocytes # (Manual) Eosinophils # (Manual) Basophils # (Manual) PT INR APTT Heparin Anti-Xa Level POC ABG pH POC ABG pCO2 POC ABG pO2 Sodium Potassium Chloride Carbon Dioxide BUN Creatinine Glucose POC Glucose 223 H 236 H 164 H Calcium Phosphorus Magnesium AST Alkaline Phosphatase Troponin T C-Reactive Protein Total Protein Albumin Triglycerides HDL Cholesterol Lipase Vitamin B12 TSH Urine WBC (Auto) Urine Chloride Urine Total Protein Vancomycin Trough Crossmatch 10/15/16 10/15/16 10/15/16 19:14 20:31 21:23 WBC RBC Hgb Hct MCV RDW Plt Count Lymph % (Auto) Coleman % (Auto) Coleman # Seg Neutrophils % Seg Neuts % (Manual) Lymphocytes % (Manual) Monocytes % (Manual) Basophils % (Manual) Nucleated RBC % Seg Neutrophils # Seg Neutrophils # Man Lymphocytes # (Manual) Monocytes # (Manual) Eosinophils # (Manual) Basophils # (Manual) PT INR APTT Heparin Anti-Xa Level POC ABG pH POC ABG pCO2 POC ABG pO2 Sodium Potassium Chloride Carbon Dioxide BUN Creatinine Glucose POC Glucose 138 H 158 H 158 H Calcium Phosphorus Magnesium AST Alkaline Phosphatase Troponin T C-Reactive Protein Total Protein Albumin Triglycerides HDL Cholesterol Lipase Vitamin B12 TSH Urine WBC (Auto) Urine Chloride Urine Total Protein Vancomycin Trough Crossmatch 10/15/16 10/15/16 10/16/16 22:04 22:57 00:11 WBC RBC Hgb Hct MCV RDW Plt Count Lymph % (Auto) Coleman % (Auto) Coleman # Seg Neutrophils % Seg Neuts % (Manual) Lymphocytes % (Manual) Monocytes % (Manual) Basophils % (Manual) Nucleated RBC % Seg Neutrophils # Seg Neutrophils # Man Lymphocytes # (Manual) Monocytes # (Manual) Eosinophils # (Manual) Basophils # (Manual) PT INR APTT Heparin Anti-Xa Level POC ABG pH POC ABG pCO2 POC ABG pO2 Sodium Potassium Chloride Carbon Dioxide BUN Creatinine Glucose POC Glucose 168 H 213 H 166 H Calcium Phosphorus Magnesium AST Alkaline Phosphatase Troponin T C-Reactive Protein Total Protein Albumin Triglycerides HDL Cholesterol Lipase Vitamin B12 TSH Urine WBC (Auto) Urine Chloride Urine Total Protein Vancomycin Trough Crossmatch 10/16/16 10/16/16 10/16/16 01:16 02:32 03:38 WBC RBC Hgb Hct MCV RDW Plt Count Lymph % (Auto) Coleman % (Auto) Coleman # Seg Neutrophils % Seg Neuts % (Manual) Lymphocytes % (Manual) Monocytes % (Manual) Basophils % (Manual) Nucleated RBC % Seg Neutrophils # Seg Neutrophils # Man Lymphocytes # (Manual) Monocytes # (Manual) Eosinophils # (Manual) Basophils # (Manual) PT INR APTT Heparin Anti-Xa Level POC ABG pH POC ABG pCO2 POC ABG pO2 Sodium Potassium Chloride Carbon Dioxide BUN Creatinine Glucose POC Glucose 171 H 164 H 147 H Calcium Phosphorus Magnesium AST Alkaline Phosphatase Troponin T C-Reactive Protein Total Protein Albumin Triglycerides HDL Cholesterol Lipase Vitamin B12 TSH Urine WBC (Auto) Urine Chloride Urine Total Protein Vancomycin Trough Crossmatch 10/16/16 10/16/16 10/16/16 04:14 04:14 04:49 WBC RBC Hgb Hct MCV RDW Plt Count Lymph % (Auto) Coleman % (Auto) Coleman # Seg Neutrophils % Seg Neuts % (Manual) Lymphocytes % (Manual) Monocytes % (Manual) Basophils % (Manual) Nucleated RBC % Seg Neutrophils # Seg Neutrophils # Man Lymphocytes # (Manual) Monocytes # (Manual) Eosinophils # (Manual) Basophils # (Manual) PT INR APTT Heparin Anti-Xa Level POC ABG pH POC ABG pCO2 POC ABG pO2 Sodium 147 H Potassium Chloride 110.9 H Carbon Dioxide 19 L BUN Creatinine Glucose 139 H POC Glucose 144 H Calcium 7.3 L Phosphorus 2.3 L Magnesium AST Alkaline Phosphatase Troponin T C-Reactive Protein Total Protein Albumin Triglycerides HDL Cholesterol Lipase 143 H Vitamin B12 TSH Urine WBC (Auto) Urine Chloride Urine Total Protein Vancomycin Trough Crossmatch 10/16/16 10/16/16 10/16/16 05:03 05:41 05:58 WBC 16.5 H RBC 3.36 L Hgb Hct MCV 98 H RDW 13.1 L Plt Count Lymph % (Auto) 8.5 L Coleman % (Auto) 7.6 H Coleman # 1.3 H Seg Neutrophils % 83.3 H Seg Neuts % (Manual) Lymphocytes % (Manual) Monocytes % (Manual) Basophils % (Manual) Nucleated RBC % Seg Neutrophils # 13.8 H Seg Neutrophils # Man Lymphocytes # (Manual) Monocytes # (Manual) Eosinophils # (Manual) Basophils # (Manual) PT INR APTT Heparin Anti-Xa Level POC ABG pH POC ABG pCO2 30.7 L POC ABG pO2 128 H Sodium Potassium Chloride Carbon Dioxide BUN Creatinine Glucose POC Glucose 131 H Calcium Phosphorus Magnesium AST Alkaline Phosphatase Troponin T C-Reactive Protein Total Protein Albumin Triglycerides HDL Cholesterol Lipase Vitamin B12 TSH Urine WBC (Auto) Urine Chloride Urine Total Protein Vancomycin Trough Crossmatch 10/16/16 10/16/16 10/16/16 06:32 09:27 09:35 WBC RBC Hgb Hct MCV RDW Plt Count Lymph % (Auto) Coleman % (Auto) Coleman # Seg Neutrophils % Seg Neuts % (Manual) Lymphocytes % (Manual) Monocytes % (Manual) Basophils % (Manual) Nucleated RBC % Seg Neutrophils # Seg Neutrophils # Man Lymphocytes # (Manual) Monocytes # (Manual) Eosinophils # (Manual) Basophils # (Manual) PT INR APTT Heparin Anti-Xa Level POC ABG pH POC ABG pCO2 32.8 L POC ABG pO2 137 H Sodium Potassium Chloride Carbon Dioxide BUN Creatinine Glucose POC Glucose 121 H 150 H Calcium Phosphorus Magnesium AST Alkaline Phosphatase Troponin T C-Reactive Protein Total Protein Albumin Triglycerides HDL Cholesterol Lipase Vitamin B12 TSH Urine WBC (Auto) Urine Chloride Urine Total Protein Vancomycin Trough Crossmatch 10/16/16 10/16/16 10/16/16 10:47 13:27 14:24 WBC RBC Hgb Hct MCV RDW Plt Count Lymph % (Auto) Coleman % (Auto) Coleman # Seg Neutrophils % Seg Neuts % (Manual) Lymphocytes % (Manual) Monocytes % (Manual) Basophils % (Manual) Nucleated RBC % Seg Neutrophils # Seg Neutrophils # Man Lymphocytes # (Manual) Monocytes # (Manual) Eosinophils # (Manual) Basophils # (Manual) PT INR APTT Heparin Anti-Xa Level POC ABG pH POC ABG pCO2 POC ABG pO2 Sodium Potassium Chloride Carbon Dioxide BUN Creatinine Glucose POC Glucose 184 H 171 H 174 H Calcium Phosphorus Magnesium AST Alkaline Phosphatase Troponin T C-Reactive Protein Total Protein Albumin Triglycerides HDL Cholesterol Lipase Vitamin B12 TSH Urine WBC (Auto) Urine Chloride Urine Total Protein Vancomycin Trough Crossmatch 10/16/16 10/16/16 10/16/16 15:48 16:26 18:17 WBC RBC Hgb Hct MCV RDW Plt Count Lymph % (Auto) Coleman % (Auto) Coleman # Seg Neutrophils % Seg Neuts % (Manual) Lymphocytes % (Manual) Monocytes % (Manual) Basophils % (Manual) Nucleated RBC % Seg Neutrophils # Seg Neutrophils # Man Lymphocytes # (Manual) Monocytes # (Manual) Eosinophils # (Manual) Basophils # (Manual) PT INR APTT Heparin Anti-Xa Level POC ABG pH POC ABG pCO2 POC ABG pO2 Sodium Potassium Chloride Carbon Dioxide BUN Creatinine Glucose POC Glucose 205 H 204 H 234 H Calcium Phosphorus Magnesium AST Alkaline Phosphatase Troponin T C-Reactive Protein Total Protein Albumin Triglycerides HDL Cholesterol Lipase Vitamin B12 TSH Urine WBC (Auto) Urine Chloride Urine Total Protein Vancomycin Trough Crossmatch 10/16/16 10/16/16 10/16/16 19:40 20:33 21:36 WBC RBC Hgb Hct MCV RDW Plt Count Lymph % (Auto) Coleman % (Auto) Coleman # Seg Neutrophils % Seg Neuts % (Manual) Lymphocytes % (Manual) Monocytes % (Manual) Basophils % (Manual) Nucleated RBC % Seg Neutrophils # Seg Neutrophils # Man Lymphocytes # (Manual) Monocytes # (Manual) Eosinophils # (Manual) Basophils # (Manual) PT INR APTT Heparin Anti-Xa Level POC ABG pH POC ABG pCO2 POC ABG pO2 Sodium Potassium Chloride Carbon Dioxide BUN Creatinine Glucose POC Glucose 167 H 153 H 158 H Calcium Phosphorus Magnesium AST Alkaline Phosphatase Troponin T C-Reactive Protein Total Protein Albumin Triglycerides HDL Cholesterol Lipase Vitamin B12 TSH Urine WBC (Auto) Urine Chloride Urine Total Protein Vancomycin Trough Crossmatch 10/16/16 10/16/16 10/17/16 22:54 23:48 00:47 WBC RBC Hgb Hct MCV RDW Plt Count Lymph % (Auto) Coleman % (Auto) Coleman # Seg Neutrophils % Seg Neuts % (Manual) Lymphocytes % (Manual) Monocytes % (Manual) Basophils % (Manual) Nucleated RBC % Seg Neutrophils # Seg Neutrophils # Man Lymphocytes # (Manual) Monocytes # (Manual) Eosinophils # (Manual) Basophils # (Manual) PT INR APTT Heparin Anti-Xa Level POC ABG pH POC ABG pCO2 POC ABG pO2 Sodium Potassium Chloride Carbon Dioxide BUN Creatinine Glucose POC Glucose 180 H 207 H 196 H Calcium Phosphorus Magnesium AST Alkaline Phosphatase Troponin T C-Reactive Protein Total Protein Albumin Triglycerides HDL Cholesterol Lipase Vitamin B12 TSH Urine WBC (Auto) Urine Chloride Urine Total Protein Vancomycin Trough Crossmatch 10/17/16 10/17/16 10/17/16 01:57 02:49 03:50 WBC RBC Hgb Hct MCV RDW Plt Count Lymph % (Auto) Coleman % (Auto) Coleman # Seg Neutrophils % Seg Neuts % (Manual) Lymphocytes % (Manual) Monocytes % (Manual) Basophils % (Manual) Nucleated RBC % Seg Neutrophils # Seg Neutrophils # Man Lymphocytes # (Manual) Monocytes # (Manual) Eosinophils # (Manual) Basophils # (Manual) PT INR APTT Heparin Anti-Xa Level POC ABG pH POC ABG pCO2 POC ABG pO2 Sodium Potassium Chloride Carbon Dioxide BUN Creatinine Glucose POC Glucose 180 H 151 H 106 H Calcium Phosphorus Magnesium AST Alkaline Phosphatase Troponin T C-Reactive Protein Total Protein Albumin Triglycerides HDL Cholesterol Lipase Vitamin B12 TSH Urine WBC (Auto) Urine Chloride Urine Total Protein Vancomycin Trough Crossmatch 10/17/16 10/17/16 10/17/16 04:59 06:03 06:35 WBC RBC Hgb Hct MCV RDW Plt Count Lymph % (Auto) Coleman % (Auto) Coleman # Seg Neutrophils % Seg Neuts % (Manual) Lymphocytes % (Manual) Monocytes % (Manual) Basophils % (Manual) Nucleated RBC % Seg Neutrophils # Seg Neutrophils # Man Lymphocytes # (Manual) Monocytes # (Manual) Eosinophils # (Manual) Basophils # (Manual) PT INR APTT Heparin Anti-Xa Level POC ABG pH 7.453 H POC ABG pCO2 30.1 L POC ABG pO2 111 H Sodium Potassium Chloride Carbon Dioxide BUN Creatinine Glucose POC Glucose 145 H 157 H Calcium Phosphorus Magnesium AST Alkaline Phosphatase Troponin T C-Reactive Protein Total Protein Albumin Triglycerides HDL Cholesterol Lipase Vitamin B12 TSH Urine WBC (Auto) Urine Chloride Urine Total Protein Vancomycin Trough Crossmatch 10/17/16 10/17/16 10/17/16 07:08 07:11 08:01 WBC RBC Hgb Hct MCV RDW Plt Count Lymph % (Auto) Coleman % (Auto) Coleman # Seg Neutrophils % Seg Neuts % (Manual) Lymphocytes % (Manual) Monocytes % (Manual) Basophils % (Manual) Nucleated RBC % Seg Neutrophils # Seg Neutrophils # Man Lymphocytes # (Manual) Monocytes # (Manual) Eosinophils # (Manual) Basophils # (Manual) PT INR APTT Heparin Anti-Xa Level POC ABG pH POC ABG pCO2 POC ABG pO2 Sodium 147 H Potassium Chloride 113.8 H Carbon Dioxide 19 L BUN Creatinine Glucose 136 H POC Glucose 136 H 152 H Calcium 7.7 L Phosphorus Magnesium AST Alkaline Phosphatase Troponin T C-Reactive Protein Total Protein Albumin Triglycerides HDL Cholesterol Lipase Vitamin B12 TSH Urine WBC (Auto) Urine Chloride Urine Total Protein Vancomycin Trough Crossmatch 10/17/16 10/17/16 10/17/16 08:23 09:17 09:53 WBC 18.1 H RBC 3.01 L Hgb 9.7 L Hct 29.4 L MCV 98 H RDW Plt Count 116 L Lymph % (Auto) Coleman % (Auto) Coleman # Seg Neutrophils % Seg Neuts % (Manual) 77.0 H Lymphocytes % (Manual) 4.0 L Monocytes % (Manual) 12.0 H Basophils % (Manual) Nucleated RBC % Seg Neutrophils # Seg Neutrophils # Man 13.9 H Lymphocytes # (Manual) 0.7 L Monocytes # (Manual) 2.2 H Eosinophils # (Manual) Basophils # (Manual) PT INR APTT Heparin Anti-Xa Level POC ABG pH POC ABG pCO2 POC ABG pO2 Sodium Potassium Chloride Carbon Dioxide BUN Creatinine Glucose POC Glucose 148 H 137 H Calcium Phosphorus Magnesium AST Alkaline Phosphatase Troponin T C-Reactive Protein Total Protein Albumin Triglycerides HDL Cholesterol Lipase Vitamin B12 TSH Urine WBC (Auto) Urine Chloride Urine Total Protein Vancomycin Trough Crossmatch 10/17/16 10/17/16 10/17/16 11:43 16:07 17:42 WBC RBC Hgb Hct MCV RDW Plt Count Lymph % (Auto) Coleman % (Auto) Coleman # Seg Neutrophils % Seg Neuts % (Manual) Lymphocytes % (Manual) Monocytes % (Manual) Basophils % (Manual) Nucleated RBC % Seg Neutrophils # Seg Neutrophils # Man Lymphocytes # (Manual) Monocytes # (Manual) Eosinophils # (Manual) Basophils # (Manual) PT 16.4 H INR 1.33 H APTT 38.8 H Heparin Anti-Xa Level POC ABG pH POC ABG pCO2 POC ABG pO2 Sodium Potassium Chloride Carbon Dioxide BUN Creatinine Glucose POC Glucose 179 H 153 H Calcium Phosphorus Magnesium AST Alkaline Phosphatase Troponin T C-Reactive Protein Total Protein Albumin Triglycerides HDL Cholesterol Lipase Vitamin B12 TSH Urine WBC (Auto) Urine Chloride Urine Total Protein Vancomycin Trough Crossmatch 10/17/16 10/18/16 10/18/16 22:54 04:37 05:39 WBC RBC Hgb Hct MCV RDW Plt Count Lymph % (Auto) Coleman % (Auto) Coleman # Seg Neutrophils % Seg Neuts % (Manual) Lymphocytes % (Manual) Monocytes % (Manual) Basophils % (Manual) Nucleated RBC % Seg Neutrophils # Seg Neutrophils # Man Lymphocytes # (Manual) Monocytes # (Manual) Eosinophils # (Manual) Basophils # (Manual) PT INR APTT Heparin Anti-Xa Level 0.27 L POC ABG pH 7.454 H POC ABG pCO2 30.8 L POC ABG pO2 115 H Sodium Potassium Chloride Carbon Dioxide BUN Creatinine Glucose POC Glucose 69 L Calcium Phosphorus Magnesium AST Alkaline Phosphatase Troponin T C-Reactive Protein Total Protein Albumin Triglycerides HDL Cholesterol Lipase Vitamin B12 TSH Urine WBC (Auto) Urine Chloride Urine Total Protein Vancomycin Trough Crossmatch 10/18/16 10/18/16 10/18/16 06:46 06:46 06:46 WBC 20.5 H RBC 2.62 L Hgb 8.4 L Hct 26.0 L MCV 100 H RDW Plt Count Lymph % (Auto) Coleman % (Auto) Coleman # Seg Neutrophils % Seg Neuts % (Manual) 75.0 H Lymphocytes % (Manual) 9.0 L Monocytes % (Manual) 14.0 H Basophils % (Manual) Nucleated RBC % Seg Neutrophils # Seg Neutrophils # Man 15.4 H Lymphocytes # (Manual) Monocytes # (Manual) 2.9 H Eosinophils # (Manual) Basophils # (Manual) PT INR APTT Heparin Anti-Xa Level POC ABG pH POC ABG pCO2 POC ABG pO2 Sodium Potassium Chloride 110.6 H Carbon Dioxide BUN Creatinine 1.3 H Glucose 153 H POC Glucose Calcium 8.0 L Phosphorus Magnesium 1.6 L AST Alkaline Phosphatase Troponin T C-Reactive Protein Total Protein Albumin Triglycerides HDL Cholesterol Lipase Vitamin B12 TSH Urine WBC (Auto) Urine Chloride Urine Total Protein Vancomycin Trough Crossmatch 10/18/16 10/18/16 10/18/16 07:30 11:37 17:51 WBC RBC Hgb Hct MCV RDW Plt Count Lymph % (Auto) Coleman % (Auto) Coleman # Seg Neutrophils % Seg Neuts % (Manual) Lymphocytes % (Manual) Monocytes % (Manual) Basophils % (Manual) Nucleated RBC % Seg Neutrophils # Seg Neutrophils # Man Lymphocytes # (Manual) Monocytes # (Manual) Eosinophils # (Manual) Basophils # (Manual) PT INR APTT Heparin Anti-Xa Level POC ABG pH POC ABG pCO2 POC ABG pO2 Sodium Potassium Chloride Carbon Dioxide BUN Creatinine Glucose POC Glucose 162 H 156 H 164 H Calcium Phosphorus Magnesium AST Alkaline Phosphatase Troponin T C-Reactive Protein Total Protein Albumin Triglycerides HDL Cholesterol Lipase Vitamin B12 TSH Urine WBC (Auto) Urine Chloride Urine Total Protein Vancomycin Trough Crossmatch 10/18/16 10/19/16 10/19/16 23:44 03:59 05:13 WBC 18.2 H RBC 2.76 L Hgb 9.0 L Hct 27.7 L MCV 100 H RDW Plt Count Lymph % (Auto) Coleman % (Auto) Coleman # Seg Neutrophils % Seg Neuts % (Manual) 76.0 H Lymphocytes % (Manual) 10.0 L Monocytes % (Manual) Basophils % (Manual) Nucleated RBC % Seg Neutrophils # Seg Neutrophils # Man 13.8 H Lymphocytes # (Manual) Monocytes # (Manual) Eosinophils # (Manual) Basophils # (Manual) PT INR APTT Heparin Anti-Xa Level POC ABG pH POC ABG pCO2 32.2 L POC ABG pO2 128 H Sodium Potassium Chloride Carbon Dioxide BUN Creatinine Glucose POC Glucose 278 H Calcium Phosphorus Magnesium AST Alkaline Phosphatase Troponin T C-Reactive Protein Total Protein Albumin Triglycerides HDL Cholesterol Lipase Vitamin B12 TSH Urine WBC (Auto) Urine Chloride Urine Total Protein Vancomycin Trough Crossmatch 10/19/16 10/19/16 10/19/16 06:01 06:30 12:20 WBC RBC Hgb Hct MCV RDW Plt Count Lymph % (Auto) Coleman % (Auto) Coleman # Seg Neutrophils % Seg Neuts % (Manual) Lymphocytes % (Manual) Monocytes % (Manual) Basophils % (Manual) Nucleated RBC % Seg Neutrophils # Seg Neutrophils # Man Lymphocytes # (Manual) Monocytes # (Manual) Eosinophils # (Manual) Basophils # (Manual) PT INR APTT Heparin Anti-Xa Level POC ABG pH POC ABG pCO2 POC ABG pO2 Sodium Potassium Chloride Carbon Dioxide 18 L BUN Creatinine 1.3 H Glucose 262 H POC Glucose 261 H 349 H Calcium 7.7 L Phosphorus 4.8 H D Magnesium AST Alkaline Phosphatase Troponin T C-Reactive Protein Total Protein Albumin Triglycerides HDL Cholesterol Lipase Vitamin B12 TSH Urine WBC (Auto) Urine Chloride Urine Total Protein Vancomycin Trough Crossmatch 10/19/16 10/20/16 10/20/16 16:48 00:17 05:20 WBC 22.5 H RBC 2.80 L Hgb 8.9 L Hct 28.3 L MCV 101 H RDW Plt Count Lymph % (Auto) Coleman % (Auto) Coleman # Seg Neutrophils % Seg Neuts % (Manual) Lymphocytes % (Manual) 10.0 L Monocytes % (Manual) Basophils % (Manual) Nucleated RBC % Seg Neutrophils # Seg Neutrophils # Man 13.3 H Lymphocytes # (Manual) Monocytes # (Manual) 1.1 H Eosinophils # (Manual) 0.7 H Basophils # (Manual) PT INR APTT Heparin Anti-Xa Level POC ABG pH POC ABG pCO2 POC ABG pO2 Sodium Potassium Chloride Carbon Dioxide BUN Creatinine Glucose POC Glucose 248 H 346 H Calcium Phosphorus Magnesium AST Alkaline Phosphatase Troponin T C-Reactive Protein Total Protein Albumin Triglycerides HDL Cholesterol Lipase Vitamin B12 TSH Urine WBC (Auto) Urine Chloride Urine Total Protein Vancomycin Trough Crossmatch 10/20/16 10/20/16 10/20/16 05:20 05:20 06:05 WBC RBC Hgb Hct MCV RDW Plt Count Lymph % (Auto) Coleman % (Auto) Coleman # Seg Neutrophils % Seg Neuts % (Manual) Lymphocytes % (Manual) Monocytes % (Manual) Basophils % (Manual) Nucleated RBC % Seg Neutrophils # Seg Neutrophils # Man Lymphocytes # (Manual) Monocytes # (Manual) Eosinophils # (Manual) Basophils # (Manual) PT INR APTT Heparin Anti-Xa Level 0.20 L POC ABG pH POC ABG pCO2 POC ABG pO2 Sodium Potassium Chloride Carbon Dioxide BUN 20 H Creatinine Glucose 374 H POC Glucose 337 H Calcium 8.3 L Phosphorus Magnesium AST Alkaline Phosphatase Troponin T C-Reactive Protein Total Protein Albumin Triglycerides HDL Cholesterol Lipase Vitamin B12 TSH Urine WBC (Auto) Urine Chloride Urine Total Protein Vancomycin Trough Crossmatch 10/20/16 10/20/16 10/20/16 11:49 13:59 17:56 WBC RBC Hgb Hct MCV RDW Plt Count Lymph % (Auto) Coleman % (Auto) Coleman # Seg Neutrophils % Seg Neuts % (Manual) Lymphocytes % (Manual) Monocytes % (Manual) Basophils % (Manual) Nucleated RBC % Seg Neutrophils # Seg Neutrophils # Man Lymphocytes # (Manual) Monocytes # (Manual) Eosinophils # (Manual) Basophils # (Manual) PT INR APTT Heparin Anti-Xa Level 2.00 H POC ABG pH POC ABG pCO2 POC ABG pO2 Sodium Potassium Chloride Carbon Dioxide BUN Creatinine Glucose POC Glucose 305 H 362 H Calcium Phosphorus Magnesium AST Alkaline Phosphatase Troponin T C-Reactive Protein Total Protein Albumin Triglycerides HDL Cholesterol Lipase Vitamin B12 TSH Urine WBC (Auto) Urine Chloride Urine Total Protein Vancomycin Trough Crossmatch 10/20/16 10/21/16 10/21/16 23:52 05:00 05:49 WBC 22.9 H RBC 2.49 L Hgb 7.7 L Hct 25.6 L MCV 103 H RDW Plt Count Lymph % (Auto) Coleman % (Auto) Coleman # Seg Neutrophils % Seg Neuts % (Manual) 94.0 H Lymphocytes % (Manual) 1.0 L Monocytes % (Manual) Basophils % (Manual) Nucleated RBC % Seg Neutrophils # Seg Neutrophils # Man 21.5 H Lymphocytes # (Manual) 0.2 L Monocytes # (Manual) 1.1 H Eosinophils # (Manual) Basophils # (Manual) PT INR APTT Heparin Anti-Xa Level POC ABG pH POC ABG pCO2 POC ABG pO2 Sodium Potassium Chloride Carbon Dioxide BUN Creatinine Glucose POC Glucose 252 H 180 H Calcium Phosphorus Magnesium AST Alkaline Phosphatase Troponin T C-Reactive Protein Total Protein Albumin Triglycerides HDL Cholesterol Lipase Vitamin B12 TSH Urine WBC (Auto) Urine Chloride Urine Total Protein Vancomycin Trough Crossmatch 10/21/16 10/21/16 10/21/16 11:47 11:49 14:10 WBC RBC Hgb Hct MCV RDW Plt Count Lymph % (Auto) Coleman % (Auto) Coleman # Seg Neutrophils % Seg Neuts % (Manual) Lymphocytes % (Manual) Monocytes % (Manual) Basophils % (Manual) Nucleated RBC % Seg Neutrophils # Seg Neutrophils # Man Lymphocytes # (Manual) Monocytes # (Manual) Eosinophils # (Manual) Basophils # (Manual) PT INR APTT Heparin Anti-Xa Level POC ABG pH POC ABG pCO2 POC ABG pO2 Sodium Potassium Chloride Carbon Dioxide BUN Creatinine Glucose POC Glucose 50 L 56 L 140 H Calcium Phosphorus Magnesium AST Alkaline Phosphatase Troponin T C-Reactive Protein Total Protein Albumin Triglycerides HDL Cholesterol Lipase Vitamin B12 TSH Urine WBC (Auto) Urine Chloride Urine Total Protein Vancomycin Trough Crossmatch 10/21/16 10/21/16 10/22/16 18:24 Unknown 00:07 WBC RBC Hgb Hct MCV RDW Plt Count Lymph % (Auto) Coleman % (Auto) Coleman # Seg Neutrophils % Seg Neuts % (Manual) Lymphocytes % (Manual) Monocytes % (Manual) Basophils % (Manual) Nucleated RBC % Seg Neutrophils # Seg Neutrophils # Man Lymphocytes # (Manual) Monocytes # (Manual) Eosinophils # (Manual) Basophils # (Manual) PT INR APTT Heparin Anti-Xa Level POC ABG pH POC ABG pCO2 POC ABG pO2 Sodium 150 H Potassium 3.1 L Chloride 112.4 H Carbon Dioxide BUN 25 H Creatinine 1.4 H Glucose POC Glucose 175 H 218 H Calcium 8.0 L Phosphorus Magnesium AST Alkaline Phosphatase Troponin T C-Reactive Protein Total Protein Albumin Triglycerides HDL Cholesterol Lipase Vitamin B12 TSH Urine WBC (Auto) Urine Chloride Urine Total Protein Vancomycin Trough Crossmatch 10/22/16 10/22/16 10/22/16 04:20 04:20 10:25 WBC 20.8 H RBC 2.37 L Hgb 7.5 L Hct 23.9 L MCV 101 H RDW Plt Count Lymph % (Auto) Coleman % (Auto) Coleman # Seg Neutrophils % Seg Neuts % (Manual) 89.0 H Lymphocytes % (Manual) 7.0 L Monocytes % (Manual) Basophils % (Manual) Nucleated RBC % Seg Neutrophils # Seg Neutrophils # Man 18.5 H Lymphocytes # (Manual) Monocytes # (Manual) Eosinophils # (Manual) Basophils # (Manual) 0.2 H PT INR APTT Heparin Anti-Xa Level POC ABG pH POC ABG pCO2 POC ABG pO2 Sodium 148 H Potassium 2.9 L* Chloride 109.4 H Carbon Dioxide BUN 26 H Creatinine Glucose 140 H POC Glucose Calcium 7.5 L Phosphorus Magnesium AST Alkaline Phosphatase Troponin T C-Reactive Protein Total Protein Albumin Triglycerides HDL Cholesterol Lipase Vitamin B12 976.8 H TSH Urine WBC (Auto) Urine Chloride Urine Total Protein Vancomycin Trough Crossmatch 10/22/16 10/22/16 10/22/16 10:25 14:50 18:16 WBC RBC Hgb Hct MCV RDW Plt Count Lymph % (Auto) Coleman % (Auto) Coleman # Seg Neutrophils % Seg Neuts % (Manual) Lymphocytes % (Manual) Monocytes % (Manual) Basophils % (Manual) Nucleated RBC % Seg Neutrophils # Seg Neutrophils # Man Lymphocytes # (Manual) Monocytes # (Manual) Eosinophils # (Manual) Basophils # (Manual) PT INR APTT Heparin Anti-Xa Level POC ABG pH POC ABG pCO2 POC ABG pO2 Sodium Potassium Chloride Carbon Dioxide BUN Creatinine Glucose POC Glucose 193 H Calcium Phosphorus Magnesium AST Alkaline Phosphatase Troponin T C-Reactive Protein Total Protein Albumin Triglycerides HDL Cholesterol Lipase Vitamin B12 TSH 0.143 L 0.162 L Urine WBC (Auto) Urine Chloride Urine Total Protein Vancomycin Trough Crossmatch 10/22/16 10/22/16 10/22/16 20:00 20:00 20:00 WBC 24.1 H RBC 2.58 L Hgb 8.2 L Hct 26.4 L MCV 102 H RDW Plt Count Lymph % (Auto) Coleman % (Auto) Coleman # Seg Neutrophils % Seg Neuts % (Manual) 74.0 H Lymphocytes % (Manual) 7.0 L Monocytes % (Manual) Basophils % (Manual) Nucleated RBC % Seg Neutrophils # Seg Neutrophils # Man 17.8 H Lymphocytes # (Manual) Monocytes # (Manual) Eosinophils # (Manual) Basophils # (Manual) PT INR APTT Heparin Anti-Xa Level 1.92 H POC ABG pH POC ABG pCO2 POC ABG pO2 Sodium Potassium Chloride Carbon Dioxide BUN Creatinine Glucose POC Glucose Calcium Phosphorus Magnesium AST Alkaline Phosphatase Troponin T C-Reactive Protein Total Protein Albumin Triglycerides HDL Cholesterol Lipase Vitamin B12 TSH Urine WBC (Auto) Urine Chloride Urine Total Protein Vancomycin Trough Crossmatch See Detail 10/23/16 10/23/16 10/23/16 00:21 06:09 12:07 WBC RBC Hgb Hct MCV RDW Plt Count Lymph % (Auto) Coleman % (Auto) Coleman # Seg Neutrophils % Seg Neuts % (Manual) Lymphocytes % (Manual) Monocytes % (Manual) Basophils % (Manual) Nucleated RBC % Seg Neutrophils # Seg Neutrophils # Man Lymphocytes # (Manual) Monocytes # (Manual) Eosinophils # (Manual) Basophils # (Manual) PT INR APTT Heparin Anti-Xa Level POC ABG pH POC ABG pCO2 POC ABG pO2 Sodium Potassium Chloride Carbon Dioxide BUN Creatinine Glucose POC Glucose 283 H 241 H 340 H Calcium Phosphorus Magnesium AST Alkaline Phosphatase Troponin T C-Reactive Protein Total Protein Albumin Triglycerides HDL Cholesterol Lipase Vitamin B12 TSH Urine WBC (Auto) Urine Chloride Urine Total Protein Vancomycin Trough Crossmatch 10/23/16 10/23/16 10/23/16 14:01 16:00 17:59 WBC RBC Hgb Hct MCV RDW Plt Count Lymph % (Auto) Coleman % (Auto) Coleman # Seg Neutrophils % Seg Neuts % (Manual) Lymphocytes % (Manual) Monocytes % (Manual) Basophils % (Manual) Nucleated RBC % Seg Neutrophils # Seg Neutrophils # Man Lymphocytes # (Manual) Monocytes # (Manual) Eosinophils # (Manual) Basophils # (Manual) PT INR APTT Heparin Anti-Xa Level 0.19 L POC ABG pH POC ABG pCO2 32.4 L POC ABG pO2 Sodium Potassium Chloride Carbon Dioxide BUN Creatinine Glucose POC Glucose 245 H Calcium Phosphorus Magnesium AST Alkaline Phosphatase Troponin T C-Reactive Protein Total Protein Albumin Triglycerides HDL Cholesterol Lipase Vitamin B12 TSH Urine WBC (Auto) Urine Chloride Urine Total Protein Vancomycin Trough Crossmatch 10/23/16 10/23/16 10/23/16 22:55 Unknown Unknown WBC 22.6 H RBC 3.26 L Hgb Hct MCV RDW 17.1 H Plt Count Lymph % (Auto) Coleman % (Auto) Coleman # Seg Neutrophils % Seg Neuts % (Manual) Lymphocytes % (Manual) 11.0 L Monocytes % (Manual) Basophils % (Manual) Nucleated RBC % Seg Neutrophils # Seg Neutrophils # Man 14.0 H Lymphocytes # (Manual) Monocytes # (Manual) Eosinophils # (Manual) Basophils # (Manual) PT INR APTT Heparin Anti-Xa Level 0.17 L 0.15 L POC ABG pH POC ABG pCO2 POC ABG pO2 Sodium Potassium Chloride Carbon Dioxide BUN Creatinine Glucose POC Glucose Calcium Phosphorus Magnesium AST Alkaline Phosphatase Troponin T C-Reactive Protein Total Protein Albumin Triglycerides HDL Cholesterol Lipase Vitamin B12 TSH Urine WBC (Auto) Urine Chloride Urine Total Protein Vancomycin Trough Crossmatch 10/23/16 10/24/16 10/24/16 Unknown 00:05 05:30 WBC RBC Hgb Hct MCV RDW Plt Count Lymph % (Auto) Coleman % (Auto) Coleman # Seg Neutrophils % Seg Neuts % (Manual) Lymphocytes % (Manual) Monocytes % (Manual) Basophils % (Manual) Nucleated RBC % Seg Neutrophils # Seg Neutrophils # Man Lymphocytes # (Manual) Monocytes # (Manual) Eosinophils # (Manual) Basophils # (Manual) PT INR APTT Heparin Anti-Xa Level 0.13 L POC ABG pH POC ABG pCO2 POC ABG pO2 Sodium Potassium Chloride 111.2 H Carbon Dioxide 20 L BUN 25 H Creatinine Glucose 227 H POC Glucose 118 H Calcium 7.1 L Phosphorus Magnesium AST Alkaline Phosphatase Troponin T C-Reactive Protein Total Protein Albumin Triglycerides HDL Cholesterol Lipase Vitamin B12 TSH Urine WBC (Auto) Urine Chloride Urine Total Protein Vancomycin Trough Crossmatch 10/24/16 10/24/16 10/24/16 11:00 11:00 12:06 WBC 17.6 H RBC 2.92 L Hgb 9.2 L Hct 28.3 L MCV RDW 16.9 H Plt Count Lymph % (Auto) Coleman % (Auto) Coleman # Seg Neutrophils % Seg Neuts % (Manual) Lymphocytes % (Manual) Monocytes % (Manual) Basophils % (Manual) Nucleated RBC % Seg Neutrophils # Seg Neutrophils # Man Lymphocytes # (Manual) Monocytes # (Manual) Eosinophils # (Manual) Basophils # (Manual) PT INR APTT Heparin Anti-Xa Level 0.27 L POC ABG pH POC ABG pCO2 POC ABG pO2 Sodium Potassium Chloride Carbon Dioxide BUN Creatinine Glucose POC Glucose 166 H Calcium Phosphorus Magnesium AST Alkaline Phosphatase Troponin T C-Reactive Protein Total Protein Albumin Triglycerides HDL Cholesterol Lipase Vitamin B12 TSH Urine WBC (Auto) Urine Chloride Urine Total Protein Vancomycin Trough Crossmatch 10/24/16 10/25/16 10/25/16 12:27 00:49 03:30 WBC RBC Hgb 8.8 L Hct 28.1 L MCV RDW Plt Count Lymph % (Auto) Coleman % (Auto) Coleman # Seg Neutrophils % Seg Neuts % (Manual) Lymphocytes % (Manual) Monocytes % (Manual) Basophils % (Manual) Nucleated RBC % Seg Neutrophils # Seg Neutrophils # Man Lymphocytes # (Manual) Monocytes # (Manual) Eosinophils # (Manual) Basophils # (Manual) PT INR APTT Heparin Anti-Xa Level POC ABG pH POC ABG pCO2 33.9 L POC ABG pO2 Sodium Potassium Chloride Carbon Dioxide BUN Creatinine Glucose POC Glucose 121 H Calcium Phosphorus Magnesium AST Alkaline Phosphatase Troponin T C-Reactive Protein Total Protein Albumin Triglycerides HDL Cholesterol Lipase Vitamin B12 TSH Urine WBC (Auto) Urine Chloride Urine Total Protein Vancomycin Trough Crossmatch 10/25/16 10/25/16 10/25/16 09:49 12:10 19:25 WBC 21.1 H RBC 3.02 L Hgb 9.3 L Hct 28.9 L MCV RDW 16.3 H Plt Count Lymph % (Auto) Coleman % (Auto) Coleman # Seg Neutrophils % Seg Neuts % (Manual) 81.0 H Lymphocytes % (Manual) 9.0 L Monocytes % (Manual) Basophils % (Manual) Nucleated RBC % Seg Neutrophils # Seg Neutrophils # Man 17.1 H Lymphocytes # (Manual) Monocytes # (Manual) Eosinophils # (Manual) Basophils # (Manual) PT INR APTT Heparin Anti-Xa Level POC ABG pH POC ABG pCO2 POC ABG pO2 Sodium Potassium Chloride Carbon Dioxide BUN Creatinine Glucose POC Glucose 158 H 151 H Calcium Phosphorus Magnesium AST Alkaline Phosphatase Troponin T C-Reactive Protein Total Protein Albumin Triglycerides HDL Cholesterol Lipase Vitamin B12 TSH Urine WBC (Auto) Urine Chloride Urine Total Protein Vancomycin Trough Crossmatch 10/26/16 10/26/16 10/26/16 00:20 01:09 05:02 WBC 22.2 H RBC 2.89 L Hgb 8.7 L Hct 27.8 L MCV RDW 16.4 H Plt Count Lymph % (Auto) Coleman % (Auto) Coleman # Seg Neutrophils % Seg Neuts % (Manual) Lymphocytes % (Manual) Monocytes % (Manual) Basophils % (Manual) Nucleated RBC % Seg Neutrophils # Seg Neutrophils # Man Lymphocytes # (Manual) Monocytes # (Manual) Eosinophils # (Manual) Basophils # (Manual) PT INR APTT Heparin Anti-Xa Level POC ABG pH POC ABG pCO2 POC ABG pO2 Sodium Potassium Chloride Carbon Dioxide BUN Creatinine Glucose POC Glucose 44 L 112 H Calcium Phosphorus Magnesium AST Alkaline Phosphatase Troponin T C-Reactive Protein Total Protein Albumin Triglycerides HDL Cholesterol Lipase Vitamin B12 TSH Urine WBC (Auto) Urine Chloride Urine Total Protein Vancomycin Trough Crossmatch 10/26/16 10/26/16 10/26/16 05:02 12:11 12:14 WBC RBC Hgb Hct MCV RDW Plt Count Lymph % (Auto) Coleman % (Auto) Coleman # Seg Neutrophils % Seg Neuts % (Manual) Lymphocytes % (Manual) Monocytes % (Manual) Basophils % (Manual) Nucleated RBC % Seg Neutrophils # Seg Neutrophils # Man Lymphocytes # (Manual) Monocytes # (Manual) Eosinophils # (Manual) Basophils # (Manual) PT INR APTT Heparin Anti-Xa Level POC ABG pH POC ABG pCO2 32.0 L POC ABG pO2 33 L Sodium Potassium 3.2 L D Chloride Carbon Dioxide 20 L BUN 24 H Creatinine Glucose 104 H POC Glucose 194 H Calcium 7.7 L Phosphorus Magnesium AST Alkaline Phosphatase Troponin T C-Reactive Protein Total Protein Albumin Triglycerides HDL Cholesterol Lipase Vitamin B12 TSH Urine WBC (Auto) Urine Chloride Urine Total Protein Vancomycin Trough Crossmatch 10/26/16 10/26/16 10/27/16 15:28 17:23 00:04 WBC RBC Hgb Hct MCV RDW Plt Count Lymph % (Auto) Coleman % (Auto) Coleman # Seg Neutrophils % Seg Neuts % (Manual) Lymphocytes % (Manual) Monocytes % (Manual) Basophils % (Manual) Nucleated RBC % Seg Neutrophils # Seg Neutrophils # Man Lymphocytes # (Manual) Monocytes # (Manual) Eosinophils # (Manual) Basophils # (Manual) PT INR APTT Heparin Anti-Xa Level POC ABG pH POC ABG pCO2 33.7 L POC ABG pO2 Sodium Potassium Chloride Carbon Dioxide BUN Creatinine Glucose POC Glucose 181 H 230 H Calcium Phosphorus Magnesium AST Alkaline Phosphatase Troponin T C-Reactive Protein Total Protein Albumin Triglycerides HDL Cholesterol Lipase Vitamin B12 TSH Urine WBC (Auto) Urine Chloride Urine Total Protein Vancomycin Trough Crossmatch 10/27/16 10/27/16 10/27/16 05:15 05:15 05:38 WBC 25.5 H RBC 3.07 L Hgb 9.4 L Hct 30.1 L MCV 98 H RDW 16.4 H Plt Count 527 H Lymph % (Auto) Coleman % (Auto) Coleman # Seg Neutrophils % Seg Neuts % (Manual) Lymphocytes % (Manual) Monocytes % (Manual) Basophils % (Manual) Nucleated RBC % Seg Neutrophils # Seg Neutrophils # Man Lymphocytes # (Manual) Monocytes # (Manual) Eosinophils # (Manual) Basophils # (Manual) PT INR APTT Heparin Anti-Xa Level POC ABG pH POC ABG pCO2 POC ABG pO2 Sodium Potassium Chloride Carbon Dioxide 19 L BUN 23 H Creatinine Glucose 160 H POC Glucose 168 H Calcium 8.0 L Phosphorus Magnesium AST Alkaline Phosphatase Troponin T C-Reactive Protein Total Protein Albumin Triglycerides HDL Cholesterol Lipase Vitamin B12 TSH Urine WBC (Auto) Urine Chloride Urine Total Protein Vancomycin Trough Crossmatch 10/27/16 10/27/16 10/27/16 11:59 18:35 23:48 WBC RBC Hgb Hct MCV RDW Plt Count Lymph % (Auto) Coleman % (Auto) Coleman # Seg Neutrophils % Seg Neuts % (Manual) Lymphocytes % (Manual) Monocytes % (Manual) Basophils % (Manual) Nucleated RBC % Seg Neutrophils # Seg Neutrophils # Man Lymphocytes # (Manual) Monocytes # (Manual) Eosinophils # (Manual) Basophils # (Manual) PT INR APTT Heparin Anti-Xa Level POC ABG pH POC ABG pCO2 POC ABG pO2 Sodium Potassium Chloride Carbon Dioxide BUN Creatinine Glucose POC Glucose 197 H 318 H 316 H Calcium Phosphorus Magnesium AST Alkaline Phosphatase Troponin T C-Reactive Protein Total Protein Albumin Triglycerides HDL Cholesterol Lipase Vitamin B12 TSH Urine WBC (Auto) Urine Chloride Urine Total Protein Vancomycin Trough Crossmatch 10/28/16 10/28/16 10/28/16 03:13 04:10 04:10 WBC 18.8 H RBC 2.64 L Hgb 8.1 L Hct 26.1 L MCV 99 H RDW 16.2 H Plt Count 544 H Lymph % (Auto) Coleman % (Auto) Coleman # Seg Neutrophils % Seg Neuts % (Manual) Lymphocytes % (Manual) Monocytes % (Manual) Basophils % (Manual) Nucleated RBC % Seg Neutrophils # Seg Neutrophils # Man Lymphocytes # (Manual) Monocytes # (Manual) Eosinophils # (Manual) Basophils # (Manual) PT INR APTT Heparin Anti-Xa Level POC ABG pH POC ABG pCO2 POC ABG pO2 Sodium Potassium Chloride Carbon Dioxide 21 L BUN 24 H Creatinine Glucose 302 H POC Glucose 304 H Calcium 7.7 L Phosphorus Magnesium AST Alkaline Phosphatase Troponin T C-Reactive Protein Total Protein Albumin Triglycerides HDL Cholesterol Lipase Vitamin B12 TSH Urine WBC (Auto) Urine Chloride Urine Total Protein Vancomycin Trough Crossmatch 10/28/16 10/28/16 10/28/16 04:10 12:36 18:27 WBC RBC Hgb Hct MCV RDW Plt Count Lymph % (Auto) Coleman % (Auto) Coleman # Seg Neutrophils % Seg Neuts % (Manual) Lymphocytes % (Manual) Monocytes % (Manual) Basophils % (Manual) Nucleated RBC % Seg Neutrophils # Seg Neutrophils # Man Lymphocytes # (Manual) Monocytes # (Manual) Eosinophils # (Manual) Basophils # (Manual) PT INR APTT Heparin Anti-Xa Level 0.20 L POC ABG pH POC ABG pCO2 POC ABG pO2 Sodium Potassium Chloride Carbon Dioxide BUN Creatinine Glucose POC Glucose 205 H 339 H Calcium Phosphorus Magnesium AST Alkaline Phosphatase Troponin T C-Reactive Protein Total Protein Albumin Triglycerides HDL Cholesterol Lipase Vitamin B12 TSH Urine WBC (Auto) Urine Chloride Urine Total Protein Vancomycin Trough Crossmatch 10/29/16 10/29/16 10/29/16 01:05 06:19 09:30 WBC 20.3 H RBC 2.80 L Hgb 8.5 L Hct 26.7 L MCV RDW 15.4 H Plt Count 571 H Lymph % (Auto) Coleman % (Auto) Coleman # Seg Neutrophils % Seg Neuts % (Manual) 75.0 H Lymphocytes % (Manual) 4.0 L Monocytes % (Manual) Basophils % (Manual) Nucleated RBC % Seg Neutrophils # Seg Neutrophils # Man 15.2 H Lymphocytes # (Manual) 0.8 L Monocytes # (Manual) Eosinophils # (Manual) Basophils # (Manual) PT INR APTT Heparin Anti-Xa Level POC ABG pH POC ABG pCO2 POC ABG pO2 Sodium Potassium Chloride Carbon Dioxide BUN Creatinine Glucose POC Glucose 275 H 179 H Calcium Phosphorus Magnesium AST Alkaline Phosphatase Troponin T C-Reactive Protein Total Protein Albumin Triglycerides HDL Cholesterol Lipase Vitamin B12 TSH Urine WBC (Auto) Urine Chloride Urine Total Protein Vancomycin Trough Crossmatch 10/29/16 10/29/16 10/29/16 11:46 15:18 17:55 WBC RBC Hgb Hct MCV RDW Plt Count Lymph % (Auto) Coleman % (Auto) Coleman # Seg Neutrophils % Seg Neuts % (Manual) Lymphocytes % (Manual) Monocytes % (Manual) Basophils % (Manual) Nucleated RBC % Seg Neutrophils # Seg Neutrophils # Man Lymphocytes # (Manual) Monocytes # (Manual) Eosinophils # (Manual) Basophils # (Manual) PT INR APTT Heparin Anti-Xa Level 1.15 H POC ABG pH POC ABG pCO2 POC ABG pO2 Sodium Potassium Chloride Carbon Dioxide BUN Creatinine Glucose POC Glucose 122 H 255 H Calcium Phosphorus Magnesium AST Alkaline Phosphatase Troponin T C-Reactive Protein Total Protein Albumin Triglycerides HDL Cholesterol Lipase Vitamin B12 TSH Urine WBC (Auto) Urine Chloride Urine Total Protein Vancomycin Trough Crossmatch 10/30/16 10/30/16 10/30/16 00:10 05:30 05:30 WBC 19.8 H RBC 2.51 L Hgb 7.7 L Hct 24.1 L MCV RDW 15.5 H Plt Count 534 H Lymph % (Auto) Coleman % (Auto) Coleman # Seg Neutrophils % Seg Neuts % (Manual) Lymphocytes % (Manual) Monocytes % (Manual) Basophils % (Manual) Nucleated RBC % Seg Neutrophils # Seg Neutrophils # Man Lymphocytes # (Manual) Monocytes # (Manual) Eosinophils # (Manual) Basophils # (Manual) PT INR APTT Heparin Anti-Xa Level POC ABG pH POC ABG pCO2 POC ABG pO2 Sodium Potassium Chloride Carbon Dioxide BUN Creatinine Glucose 211 H POC Glucose 202 H Calcium 7.4 L Phosphorus Magnesium AST Alkaline Phosphatase Troponin T C-Reactive Protein Total Protein Albumin Triglycerides HDL Cholesterol Lipase Vitamin B12 TSH Urine WBC (Auto) Urine Chloride Urine Total Protein Vancomycin Trough Crossmatch 10/30/16 10/30/16 10/30/16 06:32 12:51 17:47 WBC RBC Hgb Hct MCV RDW Plt Count Lymph % (Auto) Coleman % (Auto) Coleman # Seg Neutrophils % Seg Neuts % (Manual) Lymphocytes % (Manual) Monocytes % (Manual) Basophils % (Manual) Nucleated RBC % Seg Neutrophils # Seg Neutrophils # Man Lymphocytes # (Manual) Monocytes # (Manual) Eosinophils # (Manual) Basophils # (Manual) PT INR APTT Heparin Anti-Xa Level POC ABG pH POC ABG pCO2 POC ABG pO2 Sodium Potassium Chloride Carbon Dioxide BUN Creatinine Glucose POC Glucose 207 H 218 H 169 H Calcium Phosphorus Magnesium AST Alkaline Phosphatase Troponin T C-Reactive Protein Total Protein Albumin Triglycerides HDL Cholesterol Lipase Vitamin B12 TSH Urine WBC (Auto) Urine Chloride Urine Total Protein Vancomycin Trough Crossmatch 10/30/16 10/31/16 10/31/16 23:59 05:25 11:21 WBC RBC Hgb Hct MCV RDW Plt Count Lymph % (Auto) Coleman % (Auto) Coleman # Seg Neutrophils % Seg Neuts % (Manual) Lymphocytes % (Manual) Monocytes % (Manual) Basophils % (Manual) Nucleated RBC % Seg Neutrophils # Seg Neutrophils # Man Lymphocytes # (Manual) Monocytes # (Manual) Eosinophils # (Manual) Basophils # (Manual) PT INR APTT Heparin Anti-Xa Level POC ABG pH POC ABG pCO2 POC ABG pO2 Sodium Potassium Chloride Carbon Dioxide BUN Creatinine Glucose POC Glucose 138 H 127 H 132 H Calcium Phosphorus Magnesium AST Alkaline Phosphatase Troponin T C-Reactive Protein Total Protein Albumin Triglycerides HDL Cholesterol Lipase Vitamin B12 TSH Urine WBC (Auto) Urine Chloride Urine Total Protein Vancomycin Trough Crossmatch 10/31/16 10/31/16 11/01/16 17:07 23:54 05:47 WBC RBC Hgb Hct MCV RDW Plt Count Lymph % (Auto) Coleman % (Auto) Coleman # Seg Neutrophils % Seg Neuts % (Manual) Lymphocytes % (Manual) Monocytes % (Manual) Basophils % (Manual) Nucleated RBC % Seg Neutrophils # Seg Neutrophils # Man Lymphocytes # (Manual) Monocytes # (Manual) Eosinophils # (Manual) Basophils # (Manual) PT INR APTT Heparin Anti-Xa Level POC ABG pH POC ABG pCO2 POC ABG pO2 Sodium Potassium Chloride Carbon Dioxide BUN Creatinine Glucose POC Glucose 138 H 153 H 150 H Calcium Phosphorus Magnesium AST Alkaline Phosphatase Troponin T C-Reactive Protein Total Protein Albumin Triglycerides HDL Cholesterol Lipase Vitamin B12 TSH Urine WBC (Auto) Urine Chloride Urine Total Protein Vancomycin Trough Crossmatch 11/01/16 11/01/16 11/01/16 06:33 06:33 12:16 WBC 19.2 H RBC 2.51 L Hgb 7.9 L Hct 24.8 L MCV 99 H D RDW 16.1 H Plt Count 569 H Lymph % (Auto) Coleman % (Auto) Coleman # Seg Neutrophils % Seg Neuts % (Manual) Lymphocytes % (Manual) Monocytes % (Manual) Basophils % (Manual) Nucleated RBC % Seg Neutrophils # Seg Neutrophils # Man Lymphocytes # (Manual) Monocytes # (Manual) Eosinophils # (Manual) Basophils # (Manual) PT INR APTT Heparin Anti-Xa Level POC ABG pH POC ABG pCO2 POC ABG pO2 Sodium Potassium 3.5 L Chloride Carbon Dioxide 21 L BUN Creatinine Glucose 137 H POC Glucose 125 H Calcium 7.7 L Phosphorus Magnesium AST Alkaline Phosphatase 148 H Troponin T C-Reactive Protein Total Protein 6.2 L Albumin 2.0 L Triglycerides HDL Cholesterol Lipase Vitamin B12 TSH Urine WBC (Auto) Urine Chloride Urine Total Protein Vancomycin Trough Crossmatch 11/01/16 11/02/16 11/02/16 17:37 00:05 04:15 WBC RBC Hgb Hct MCV RDW Plt Count Lymph % (Auto) Coleman % (Auto) Coleman # Seg Neutrophils % Seg Neuts % (Manual) Lymphocytes % (Manual) Monocytes % (Manual) Basophils % (Manual) Nucleated RBC % Seg Neutrophils # Seg Neutrophils # Man Lymphocytes # (Manual) Monocytes # (Manual) Eosinophils # (Manual) Basophils # (Manual) PT INR APTT Heparin Anti-Xa Level < 0.10 L POC ABG pH POC ABG pCO2 POC ABG pO2 Sodium Potassium 3.2 L Chloride Carbon Dioxide BUN 6 L Creatinine Glucose 135 H POC Glucose 164 H Calcium 7.5 L Phosphorus Magnesium AST Alkaline Phosphatase 132 H Troponin T C-Reactive Protein Total Protein 6.2 L Albumin 1.8 L Triglycerides HDL Cholesterol Lipase Vitamin B12 TSH Urine WBC (Auto) Urine Chloride Urine Total Protein Vancomycin Trough Crossmatch 11/02/16 11/02/16 11/02/16 04:15 05:54 12:15 WBC 17.7 H RBC 2.43 L Hgb 7.6 L Hct 23.5 L MCV RDW 15.9 H Plt Count 502 H Lymph % (Auto) Coleman % (Auto) Coleman # Seg Neutrophils % Seg Neuts % (Manual) 84.0 H Lymphocytes % (Manual) 11.0 L Monocytes % (Manual) Basophils % (Manual) Nucleated RBC % 1.0 H Seg Neutrophils # Seg Neutrophils # Man 14.9 H Lymphocytes # (Manual) Monocytes # (Manual) Eosinophils # (Manual) Basophils # (Manual) PT INR APTT Heparin Anti-Xa Level POC ABG pH POC ABG pCO2 POC ABG pO2 Sodium Potassium Chloride Carbon Dioxide BUN Creatinine Glucose POC Glucose 152 H 137 H Calcium Phosphorus Magnesium AST Alkaline Phosphatase Troponin T C-Reactive Protein Total Protein Albumin Triglycerides HDL Cholesterol Lipase Vitamin B12 TSH Urine WBC (Auto) Urine Chloride Urine Total Protein Vancomycin Trough Crossmatch 11/02/16 11/03/16 11/03/16 17:00 00:05 00:05 WBC RBC Hgb Hct MCV RDW Plt Count Lymph % (Auto) Coleman % (Auto) Coleman # Seg Neutrophils % Seg Neuts % (Manual) Lymphocytes % (Manual) Monocytes % (Manual) Basophils % (Manual) Nucleated RBC % Seg Neutrophils # Seg Neutrophils # Man Lymphocytes # (Manual) Monocytes # (Manual) Eosinophils # (Manual) Basophils # (Manual) PT INR APTT Heparin Anti-Xa Level POC ABG pH POC ABG pCO2 POC ABG pO2 Sodium Potassium Chloride Carbon Dioxide 20 L BUN 5 L Creatinine Glucose 139 H POC Glucose 161 H Calcium 6.7 L Phosphorus Magnesium 1.2 L AST Alkaline Phosphatase Troponin T C-Reactive Protein Total Protein Albumin Triglycerides HDL Cholesterol Lipase Vitamin B12 TSH Urine WBC (Auto) Urine Chloride Urine Total Protein Vancomycin Trough Crossmatch 11/03/16 11/03/16 11/03/16 00:05 02:05 04:23 WBC 15.9 H 14.0 H RBC 1.93 L 2.38 L Hgb 5.9 L* 7.3 L Hct 18.9 L* 23.1 L MCV 98 H RDW 15.9 H 15.9 H Plt Count Lymph % (Auto) Coleman % (Auto) Coleman # Seg Neutrophils % Seg Neuts % (Manual) 85.0 H Lymphocytes % (Manual) 4.0 L Monocytes % (Manual) Basophils % (Manual) Nucleated RBC % Seg Neutrophils # Seg Neutrophils # Man 13.5 H Lymphocytes # (Manual) 0.6 L Monocytes # (Manual) Eosinophils # (Manual) Basophils # (Manual) PT INR APTT Heparin Anti-Xa Level POC ABG pH POC ABG pCO2 POC ABG pO2 Sodium Potassium Chloride Carbon Dioxide BUN 5 L Creatinine Glucose 127 H POC Glucose Calcium 7.2 L Phosphorus Magnesium AST Alkaline Phosphatase Troponin T C-Reactive Protein Total Protein 5.8 L Albumin 1.5 L Triglycerides HDL Cholesterol Lipase Vitamin B12 TSH Urine WBC (Auto) Urine Chloride Urine Total Protein Vancomycin Trough Crossmatch 11/03/16 11/03/16 11/03/16 09:14 09:27 11:54 WBC RBC Hgb Hct MCV RDW Plt Count Lymph % (Auto) Coleman % (Auto) Coleman # Seg Neutrophils % Seg Neuts % (Manual) Lymphocytes % (Manual) Monocytes % (Manual) Basophils % (Manual) Nucleated RBC % Seg Neutrophils # Seg Neutrophils # Man Lymphocytes # (Manual) Monocytes # (Manual) Eosinophils # (Manual) Basophils # (Manual) PT INR APTT Heparin Anti-Xa Level 0.11 L POC ABG pH POC ABG pCO2 POC ABG pO2 Sodium Potassium Chloride Carbon Dioxide BUN 5 L Creatinine Glucose 111 H POC Glucose 139 H Calcium 6.7 L Phosphorus Magnesium AST Alkaline Phosphatase Troponin T C-Reactive Protein Total Protein Albumin Triglycerides HDL Cholesterol Lipase Vitamin B12 TSH Urine WBC (Auto) Urine Chloride Urine Total Protein Vancomycin Trough Crossmatch 11/03/16 11/03/16 11/03/16 16:26 18:01 18:01 WBC RBC Hgb Hct MCV RDW Plt Count Lymph % (Auto) Coleman % (Auto) Coleman # Seg Neutrophils % Seg Neuts % (Manual) Lymphocytes % (Manual) Monocytes % (Manual) Basophils % (Manual) Nucleated RBC % Seg Neutrophils # Seg Neutrophils # Man Lymphocytes # (Manual) Monocytes # (Manual) Eosinophils # (Manual) Basophils # (Manual) PT INR APTT Heparin Anti-Xa Level 2.00 H POC ABG pH POC ABG pCO2 POC ABG pO2 Sodium Potassium Chloride Carbon Dioxide BUN Creatinine Glucose POC Glucose 142 H Calcium Phosphorus Magnesium AST Alkaline Phosphatase Troponin T C-Reactive Protein Total Protein Albumin Triglycerides HDL Cholesterol Lipase Vitamin B12 TSH Urine WBC (Auto) Urine Chloride Urine Total Protein Vancomycin Trough Crossmatch See Detail 11/04/16 11/04/16 11/04/16 02:15 02:15 06:35 WBC 11.8 H RBC 2.39 L Hgb 7.4 L Hct 23.1 L MCV RDW 15.9 H Plt Count Lymph % (Auto) Coleman % (Auto) Coleman # Seg Neutrophils % Seg Neuts % (Manual) 76.0 H Lymphocytes % (Manual) 12.0 L Monocytes % (Manual) 9.0 H Basophils % (Manual) Nucleated RBC % Seg Neutrophils # Seg Neutrophils # Man 9.0 H Lymphocytes # (Manual) Monocytes # (Manual) 1.1 H Eosinophils # (Manual) Basophils # (Manual) PT INR APTT Heparin Anti-Xa Level < 0.10 L POC ABG pH POC ABG pCO2 POC ABG pO2 Sodium Potassium Chloride Carbon Dioxide 21 L BUN 5 L Creatinine Glucose 112 H POC Glucose Calcium 6.8 L Phosphorus Magnesium AST Alkaline Phosphatase Troponin T C-Reactive Protein Total Protein 5.7 L Albumin 1.7 L Triglycerides HDL Cholesterol Lipase Vitamin B12 TSH Urine WBC (Auto) Urine Chloride Urine Total Protein Vancomycin Trough Crossmatch 11/04/16 11/04/16 11/04/16 10:51 12:58 15:04 WBC RBC Hgb Hct MCV RDW Plt Count Lymph % (Auto) Coleman % (Auto) Coleman # Seg Neutrophils % Seg Neuts % (Manual) Lymphocytes % (Manual) Monocytes % (Manual) Basophils % (Manual) Nucleated RBC % Seg Neutrophils # Seg Neutrophils # Man Lymphocytes # (Manual) Monocytes # (Manual) Eosinophils # (Manual) Basophils # (Manual) PT INR APTT Heparin Anti-Xa Level 1.05 H POC ABG pH POC ABG pCO2 33.7 L POC ABG pO2 60 L Sodium Potassium Chloride Carbon Dioxide BUN Creatinine Glucose POC Glucose 118 H Calcium Phosphorus Magnesium AST Alkaline Phosphatase Troponin T C-Reactive Protein Total Protein Albumin Triglycerides HDL Cholesterol Lipase Vitamin B12 TSH Urine WBC (Auto) Urine Chloride Urine Total Protein Vancomycin Trough Crossmatch 11/04/16 11/04/16 11/05/16 17:20 20:31 02:30 WBC RBC Hgb Hct MCV RDW Plt Count Lymph % (Auto) Coleman % (Auto) Coleman # Seg Neutrophils % Seg Neuts % (Manual) Lymphocytes % (Manual) Monocytes % (Manual) Basophils % (Manual) Nucleated RBC % Seg Neutrophils # Seg Neutrophils # Man Lymphocytes # (Manual) Monocytes # (Manual) Eosinophils # (Manual) Basophils # (Manual) PT INR APTT Heparin Anti-Xa Level POC ABG pH POC ABG pCO2 POC ABG pO2 Sodium Potassium 3.5 L Chloride Carbon Dioxide 18 L BUN 5 L Creatinine 0.6 L Glucose 110 H POC Glucose 228 H 169 H Calcium 7.1 L Phosphorus Magnesium AST Alkaline Phosphatase Troponin T C-Reactive Protein Total Protein Albumin 1.9 L Triglycerides HDL Cholesterol Lipase Vitamin B12 TSH Urine WBC (Auto) Urine Chloride Urine Total Protein Vancomycin Trough Crossmatch 11/05/16 11/05/16 11/05/16 02:30 17:52 21:07 WBC 14.1 H RBC Hgb Hct MCV RDW 16.7 H Plt Count Lymph % (Auto) Coleman % (Auto) Coleman # Seg Neutrophils % Seg Neuts % (Manual) 80.0 H Lymphocytes % (Manual) 6.0 L Monocytes % (Manual) 8.0 H Basophils % (Manual) Nucleated RBC % Seg Neutrophils # Seg Neutrophils # Man 11.3 H Lymphocytes # (Manual) 0.8 L Monocytes # (Manual) 1.1 H Eosinophils # (Manual) Basophils # (Manual) PT INR APTT Heparin Anti-Xa Level < 0.10 L POC ABG pH POC ABG pCO2 POC ABG pO2 Sodium Potassium Chloride Carbon Dioxide BUN Creatinine Glucose POC Glucose 174 H Calcium Phosphorus Magnesium AST Alkaline Phosphatase Troponin T C-Reactive Protein Total Protein Albumin Triglycerides HDL Cholesterol Lipase Vitamin B12 TSH Urine WBC (Auto) Urine Chloride Urine Total Protein Vancomycin Trough Crossmatch 11/05/16 11/06/16 11/06/16 23:30 05:00 05:00 WBC 15.2 H RBC 3.29 L Hgb 10.0 L Hct MCV RDW 16.9 H Plt Count Lymph % (Auto) Coleman % (Auto) Coleman # Seg Neutrophils % Seg Neuts % (Manual) Lymphocytes % (Manual) Monocytes % (Manual) Basophils % (Manual) Nucleated RBC % Seg Neutrophils # Seg Neutrophils # Man Lymphocytes # (Manual) Monocytes # (Manual) Eosinophils # (Manual) Basophils # (Manual) PT INR APTT Heparin Anti-Xa Level 0.94 H POC ABG pH POC ABG pCO2 POC ABG pO2 Sodium Potassium Chloride Carbon Dioxide BUN Creatinine Glucose POC Glucose 131 H Calcium Phosphorus Magnesium AST Alkaline Phosphatase Troponin T C-Reactive Protein Total Protein Albumin Triglycerides HDL Cholesterol Lipase Vitamin B12 TSH Urine WBC (Auto) Urine Chloride Urine Total Protein Vancomycin Trough Crossmatch 11/06/16 11/06/16 11/06/16 05:00 11:45 18:23 WBC RBC Hgb Hct MCV RDW Plt Count Lymph % (Auto) Coleman % (Auto) Coleman # Seg Neutrophils % Seg Neuts % (Manual) Lymphocytes % (Manual) Monocytes % (Manual) Basophils % (Manual) Nucleated RBC % Seg Neutrophils # Seg Neutrophils # Man Lymphocytes # (Manual) Monocytes # (Manual) Eosinophils # (Manual) Basophils # (Manual) PT INR APTT Heparin Anti-Xa Level POC ABG pH POC ABG pCO2 POC ABG pO2 Sodium Potassium 3.5 L Chloride 107.1 H Carbon Dioxide 20 L BUN 4 L Creatinine 0.6 L Glucose 104 H POC Glucose 141 H 255 H Calcium 6.7 L Phosphorus Magnesium AST Alkaline Phosphatase Troponin T C-Reactive Protein Total Protein Albumin Triglycerides HDL Cholesterol Lipase Vitamin B12 TSH Urine WBC (Auto) Urine Chloride Urine Total Protein Vancomycin Trough Crossmatch 11/06/16 11/06/16 11/07/16 22:07 23:07 11:41 WBC RBC Hgb Hct MCV RDW Plt Count Lymph % (Auto) Coleman % (Auto) Coleman # Seg Neutrophils % Seg Neuts % (Manual) Lymphocytes % (Manual) Monocytes % (Manual) Basophils % (Manual) Nucleated RBC % Seg Neutrophils # Seg Neutrophils # Man Lymphocytes # (Manual) Monocytes # (Manual) Eosinophils # (Manual) Basophils # (Manual) PT INR APTT Heparin Anti-Xa Level 0.80 H POC ABG pH POC ABG pCO2 POC ABG pO2 Sodium Potassium Chloride Carbon Dioxide BUN Creatinine Glucose POC Glucose 183 H 132 H Calcium Phosphorus Magnesium AST Alkaline Phosphatase Troponin T C-Reactive Protein Total Protein Albumin Triglycerides HDL Cholesterol Lipase Vitamin B12 TSH Urine WBC (Auto) Urine Chloride Urine Total Protein Vancomycin Trough Crossmatch 11/07/16 11/07/16 11/07/16 12:17 17:05 17:58 WBC RBC Hgb Hct MCV RDW Plt Count Lymph % (Auto) Coleman % (Auto) Coleman # Seg Neutrophils % Seg Neuts % (Manual) Lymphocytes % (Manual) Monocytes % (Manual) Basophils % (Manual) Nucleated RBC % Seg Neutrophils # Seg Neutrophils # Man Lymphocytes # (Manual) Monocytes # (Manual) Eosinophils # (Manual) Basophils # (Manual) PT INR APTT Heparin Anti-Xa Level 0.87 H POC ABG pH 7.324 L POC ABG pCO2 POC ABG pO2 Sodium Potassium Chloride Carbon Dioxide BUN Creatinine Glucose POC Glucose 158 H Calcium Phosphorus Magnesium AST Alkaline Phosphatase Troponin T C-Reactive Protein Total Protein Albumin Triglycerides HDL Cholesterol Lipase Vitamin B12 TSH Urine WBC (Auto) Urine Chloride Urine Total Protein Vancomycin Trough Crossmatch 11/07/16 11/07/16 11/07/16 23:26 Unknown Unknown WBC 12.3 H RBC 2.96 L Hgb 9.1 L Hct 27.9 L MCV RDW 16.8 H Plt Count Lymph % (Auto) Coleman % (Auto) Coleman # Seg Neutrophils % Seg Neuts % (Manual) 80.0 H Lymphocytes % (Manual) 7.0 L Monocytes % (Manual) Basophils % (Manual) Nucleated RBC % Seg Neutrophils # Seg Neutrophils # Man 9.8 H Lymphocytes # (Manual) 0.9 L Monocytes # (Manual) Eosinophils # (Manual) Basophils # (Manual) PT INR APTT Heparin Anti-Xa Level POC ABG pH POC ABG pCO2 POC ABG pO2 Sodium Potassium Chloride Carbon Dioxide 19 L BUN Creatinine Glucose 106 H POC Glucose 130 H Calcium 6.9 L Phosphorus Magnesium AST Alkaline Phosphatase Troponin T C-Reactive Protein Total Protein Albumin Triglycerides HDL Cholesterol Lipase Vitamin B12 TSH Urine WBC (Auto) Urine Chloride Urine Total Protein Vancomycin Trough Crossmatch 11/07/16 11/08/16 11/08/16 Unknown 05:14 05:20 WBC 12.4 H RBC 3.04 L Hgb 9.2 L Hct 28.8 L MCV RDW 16.6 H Plt Count Lymph % (Auto) Coleman % (Auto) Coleman # Seg Neutrophils % Seg Neuts % (Manual) 77.0 H Lymphocytes % (Manual) 5.0 L Monocytes % (Manual) Basophils % (Manual) 2.0 H Nucleated RBC % Seg Neutrophils # Seg Neutrophils # Man 9.5 H Lymphocytes # (Manual) 0.6 L Monocytes # (Manual) Eosinophils # (Manual) Basophils # (Manual) 0.2 H PT INR APTT Heparin Anti-Xa Level 0.90 H POC ABG pH POC ABG pCO2 POC ABG pO2 Sodium Potassium Chloride Carbon Dioxide BUN Creatinine Glucose POC Glucose 204 H Calcium Phosphorus Magnesium AST Alkaline Phosphatase Troponin T C-Reactive Protein Total Protein Albumin Triglycerides HDL Cholesterol Lipase Vitamin B12 TSH Urine WBC (Auto) Urine Chloride Urine Total Protein Vancomycin Trough Crossmatch 11/08/16 11/08/16 11/08/16 05:20 12:10 13:10 WBC RBC Hgb Hct MCV RDW Plt Count Lymph % (Auto) Coleman % (Auto) Coleman # Seg Neutrophils % Seg Neuts % (Manual) Lymphocytes % (Manual) Monocytes % (Manual) Basophils % (Manual) Nucleated RBC % Seg Neutrophils # Seg Neutrophils # Man Lymphocytes # (Manual) Monocytes # (Manual) Eosinophils # (Manual) Basophils # (Manual) PT INR APTT Heparin Anti-Xa Level POC ABG pH POC ABG pCO2 33.7 L POC ABG pO2 Sodium 136 L Potassium Chloride Carbon Dioxide 19 L BUN Creatinine Glucose 192 H POC Glucose 180 H Calcium 7.1 L Phosphorus Magnesium AST Alkaline Phosphatase Troponin T C-Reactive Protein Total Protein Albumin Triglycerides HDL Cholesterol Lipase Vitamin B12 TSH Urine WBC (Auto) Urine Chloride Urine Total Protein Vancomycin Trough Crossmatch 11/08/16 11/08/16 11/08/16 17:26 20:45 23:34 WBC RBC Hgb Hct MCV RDW Plt Count Lymph % (Auto) Coleman % (Auto) Coleman # Seg Neutrophils % Seg Neuts % (Manual) Lymphocytes % (Manual) Monocytes % (Manual) Basophils % (Manual) Nucleated RBC % Seg Neutrophils # Seg Neutrophils # Man Lymphocytes # (Manual) Monocytes # (Manual) Eosinophils # (Manual) Basophils # (Manual) PT INR APTT Heparin Anti-Xa Level POC ABG pH POC ABG pCO2 POC ABG pO2 Sodium Potassium Chloride Carbon Dioxide BUN Creatinine Glucose POC Glucose 187 H 178 H Calcium Phosphorus Magnesium AST Alkaline Phosphatase Troponin T C-Reactive Protein Total Protein Albumin Triglycerides HDL Cholesterol Lipase Vitamin B12 TSH Urine WBC (Auto) Urine Chloride Urine Total Protein Vancomycin Trough 35.4 H Crossmatch 11/09/16 11/09/16 11/09/16 05:30 05:30 05:59 WBC 11.5 H RBC 2.96 L Hgb 9.2 L Hct 28.2 L MCV RDW 16.4 H Plt Count Lymph % (Auto) Coleman % (Auto) Coleman # Seg Neutrophils % Seg Neuts % (Manual) 76.0 H Lymphocytes % (Manual) 2.0 L Monocytes % (Manual) Basophils % (Manual) Nucleated RBC % Seg Neutrophils # Seg Neutrophils # Man 8.7 H Lymphocytes # (Manual) 0.2 L Monocytes # (Manual) Eosinophils # (Manual) Basophils # (Manual) PT INR APTT Heparin Anti-Xa Level POC ABG pH POC ABG pCO2 POC ABG pO2 Sodium Potassium 3.4 L Chloride 107.6 H Carbon Dioxide 19 L BUN Creatinine 0.6 L Glucose 207 H POC Glucose 263 H Calcium 7.3 L Phosphorus Magnesium AST Alkaline Phosphatase Troponin T C-Reactive Protein Total Protein Albumin Triglycerides HDL Cholesterol Lipase Vitamin B12 TSH Urine WBC (Auto) Urine Chloride Urine Total Protein Vancomycin Trough Crossmatch 11/09/16 11/09/16 11/09/16 11:49 15:24 18:04 WBC RBC Hgb Hct MCV RDW Plt Count Lymph % (Auto) Coleman % (Auto) Coleman # Seg Neutrophils % Seg Neuts % (Manual) Lymphocytes % (Manual) Monocytes % (Manual) Basophils % (Manual) Nucleated RBC % Seg Neutrophils # Seg Neutrophils # Man Lymphocytes # (Manual) Monocytes # (Manual) Eosinophils # (Manual) Basophils # (Manual) PT INR APTT Heparin Anti-Xa Level POC ABG pH POC ABG pCO2 33.8 L POC ABG pO2 131 H Sodium Potassium Chloride Carbon Dioxide BUN Creatinine Glucose POC Glucose 269 H 242 H Calcium Phosphorus Magnesium AST Alkaline Phosphatase Troponin T C-Reactive Protein Total Protein Albumin Triglycerides HDL Cholesterol Lipase Vitamin B12 TSH Urine WBC (Auto) Urine Chloride Urine Total Protein Vancomycin Trough Crossmatch 11/09/16 11/10/16 11/10/16 22:57 04:30 04:30 WBC 15.7 H RBC 3.17 L Hgb 9.7 L Hct 30.2 L MCV RDW 16.2 H Plt Count Lymph % (Auto) Coleman % (Auto) Coleman # Seg Neutrophils % Seg Neuts % (Manual) Lymphocytes % (Manual) Monocytes % (Manual) Basophils % (Manual) Nucleated RBC % Seg Neutrophils # Seg Neutrophils # Man 8.5 H Lymphocytes # (Manual) Monocytes # (Manual) Eosinophils # (Manual) 0.5 H Basophils # (Manual) PT INR APTT Heparin Anti-Xa Level POC ABG pH POC ABG pCO2 POC ABG pO2 Sodium Potassium Chloride Carbon Dioxide 19 L BUN Creatinine 0.6 L Glucose 199 H POC Glucose 239 H Calcium 7.8 L Phosphorus Magnesium AST Alkaline Phosphatase Troponin T C-Reactive Protein Total Protein Albumin Triglycerides HDL Cholesterol Lipase Vitamin B12 TSH Urine WBC (Auto) Urine Chloride Urine Total Protein Vancomycin Trough Crossmatch 11/10/16 11/10/16 11/10/16 04:30 11:32 16:00 WBC RBC Hgb Hct MCV RDW Plt Count Lymph % (Auto) Coleman % (Auto) Coleman # Seg Neutrophils % Seg Neuts % (Manual) Lymphocytes % (Manual) Monocytes % (Manual) Basophils % (Manual) Nucleated RBC % Seg Neutrophils # Seg Neutrophils # Man Lymphocytes # (Manual) Monocytes # (Manual) Eosinophils # (Manual) Basophils # (Manual) PT INR APTT Heparin Anti-Xa Level 1.09 H < 0.10 L POC ABG pH POC ABG pCO2 POC ABG pO2 Sodium Potassium Chloride Carbon Dioxide BUN Creatinine Glucose POC Glucose 211 H Calcium Phosphorus Magnesium AST Alkaline Phosphatase Troponin T C-Reactive Protein Total Protein Albumin Triglycerides HDL Cholesterol Lipase Vitamin B12 TSH Urine WBC (Auto) Urine Chloride Urine Total Protein Vancomycin Trough Crossmatch 11/10/16 11/10/16 11/10/16 17:39 18:00 23:06 WBC RBC Hgb Hct MCV RDW Plt Count Lymph % (Auto) Coleman % (Auto) Coleman # Seg Neutrophils % Seg Neuts % (Manual) Lymphocytes % (Manual) Monocytes % (Manual) Basophils % (Manual) Nucleated RBC % Seg Neutrophils # Seg Neutrophils # Man Lymphocytes # (Manual) Monocytes # (Manual) Eosinophils # (Manual) Basophils # (Manual) PT INR APTT Heparin Anti-Xa Level 0.85 H POC ABG pH POC ABG pCO2 POC ABG pO2 Sodium Potassium Chloride Carbon Dioxide BUN Creatinine Glucose POC Glucose 249 H 220 H Calcium Phosphorus Magnesium AST Alkaline Phosphatase Troponin T C-Reactive Protein Total Protein Albumin Triglycerides HDL Cholesterol Lipase Vitamin B12 TSH Urine WBC (Auto) Urine Chloride Urine Total Protein Vancomycin Trough Crossmatch 11/11/16 11/11/16 11/11/16 05:56 06:15 06:15 WBC 13.3 H RBC 2.87 L Hgb 8.7 L Hct 27.2 L MCV RDW 16.4 H Plt Count Lymph % (Auto) Coleman % (Auto) Coleman # 0.9 H Seg Neutrophils % 78.9 H Seg Neuts % (Manual) Lymphocytes % (Manual) Monocytes % (Manual) Basophils % (Manual) Nucleated RBC % Seg Neutrophils # 10.5 H Seg Neutrophils # Man Lymphocytes # (Manual) Monocytes # (Manual) Eosinophils # (Manual) Basophils # (Manual) PT INR APTT Heparin Anti-Xa Level POC ABG pH POC ABG pCO2 POC ABG pO2 Sodium Potassium 3.2 L Chloride Carbon Dioxide 19 L BUN Creatinine Glucose POC Glucose 117 H Calcium 7.6 L Phosphorus Magnesium AST Alkaline Phosphatase Troponin T C-Reactive Protein Total Protein Albumin Triglycerides HDL Cholesterol Lipase Vitamin B12 TSH Urine WBC (Auto) Urine Chloride Urine Total Protein Vancomycin Trough Crossmatch 11/11/16 11/11/16 11/11/16 12:26 16:58 17:33 WBC RBC Hgb Hct MCV RDW Plt Count Lymph % (Auto) Coleman % (Auto) Coleman # Seg Neutrophils % Seg Neuts % (Manual) Lymphocytes % (Manual) Monocytes % (Manual) Basophils % (Manual) Nucleated RBC % Seg Neutrophils # Seg Neutrophils # Man Lymphocytes # (Manual) Monocytes # (Manual) Eosinophils # (Manual) Basophils # (Manual) PT INR APTT Heparin Anti-Xa Level < 0.10 L POC ABG pH POC ABG pCO2 POC ABG pO2 Sodium Potassium Chloride Carbon Dioxide BUN Creatinine Glucose POC Glucose 114 H 161 H Calcium Phosphorus Magnesium AST Alkaline Phosphatase Troponin T C-Reactive Protein Total Protein Albumin Triglycerides HDL Cholesterol Lipase Vitamin B12 TSH Urine WBC (Auto) Urine Chloride Urine Total Protein Vancomycin Trough Crossmatch 11/12/16 11/12/16 11/12/16 05:00 05:00 05:00 WBC 12.8 H RBC 2.75 L Hgb 8.4 L Hct 25.7 L MCV RDW 16.3 H Plt Count Lymph % (Auto) Coleman % (Auto) 7.5 H Coleman # 1.0 H Seg Neutrophils % 78.0 H Seg Neuts % (Manual) Lymphocytes % (Manual) Monocytes % (Manual) Basophils % (Manual) Nucleated RBC % Seg Neutrophils # 10.0 H Seg Neutrophils # Man Lymphocytes # (Manual) Monocytes # (Manual) Eosinophils # (Manual) Basophils # (Manual) PT INR APTT Heparin Anti-Xa Level 0.87 H POC ABG pH POC ABG pCO2 POC ABG pO2 Sodium Potassium 3.4 L Chloride Carbon Dioxide 19 L BUN Creatinine Glucose 112 H POC Glucose Calcium 7.7 L Phosphorus Magnesium AST Alkaline Phosphatase Troponin T C-Reactive Protein Total Protein Albumin Triglycerides HDL Cholesterol Lipase Vitamin B12 TSH Urine WBC (Auto) Urine Chloride Urine Total Protein Vancomycin Trough Crossmatch 11/12/16 11/12/16 11/13/16 11:18 16:40 00:44 WBC RBC Hgb Hct MCV RDW Plt Count Lymph % (Auto) Coleman % (Auto) Coleman # Seg Neutrophils % Seg Neuts % (Manual) Lymphocytes % (Manual) Monocytes % (Manual) Basophils % (Manual) Nucleated RBC % Seg Neutrophils # Seg Neutrophils # Man Lymphocytes # (Manual) Monocytes # (Manual) Eosinophils # (Manual) Basophils # (Manual) PT INR APTT Heparin Anti-Xa Level POC ABG pH POC ABG pCO2 POC ABG pO2 Sodium Potassium Chloride Carbon Dioxide BUN Creatinine Glucose POC Glucose 135 H 139 H 169 H Calcium Phosphorus Magnesium AST Alkaline Phosphatase Troponin T C-Reactive Protein Total Protein Albumin Triglycerides HDL Cholesterol Lipase Vitamin B12 TSH Urine WBC (Auto) Urine Chloride Urine Total Protein Vancomycin Trough Crossmatch 11/13/16 11/13/16 11/13/16 05:28 05:28 06:02 WBC 12.7 H RBC 2.93 L Hgb 9.0 L Hct 27.6 L MCV RDW 16.1 H Plt Count Lymph % (Auto) Coleman % (Auto) Coleman # Seg Neutrophils % 78.6 H Seg Neuts % (Manual) Lymphocytes % (Manual) Monocytes % (Manual) Basophils % (Manual) Nucleated RBC % Seg Neutrophils # 10.0 H Seg Neutrophils # Man Lymphocytes # (Manual) Monocytes # (Manual) Eosinophils # (Manual) Basophils # (Manual) PT INR APTT Heparin Anti-Xa Level POC ABG pH POC ABG pCO2 POC ABG pO2 Sodium Potassium Chloride Carbon Dioxide 17 L BUN Creatinine Glucose 116 H POC Glucose 112 H Calcium 7.8 L Phosphorus Magnesium AST Alkaline Phosphatase Troponin T C-Reactive Protein Total Protein Albumin Triglycerides HDL Cholesterol Lipase Vitamin B12 TSH Urine WBC (Auto) Urine Chloride Urine Total Protein Vancomycin Trough Crossmatch 11/13/16 11/13/16 11/13/16 12:34 16:55 17:00 WBC RBC Hgb Hct MCV RDW Plt Count Lymph % (Auto) Coleman % (Auto) Coleman # Seg Neutrophils % Seg Neuts % (Manual) Lymphocytes % (Manual) Monocytes % (Manual) Basophils % (Manual) Nucleated RBC % Seg Neutrophils # Seg Neutrophils # Man Lymphocytes # (Manual) Monocytes # (Manual) Eosinophils # (Manual) Basophils # (Manual) PT INR APTT Heparin Anti-Xa Level POC ABG pH POC ABG pCO2 22.9 L POC ABG pO2 53 L Sodium Potassium Chloride Carbon Dioxide BUN Creatinine Glucose POC Glucose 109 H 122 H Calcium Phosphorus Magnesium AST Alkaline Phosphatase Troponin T C-Reactive Protein Total Protein Albumin Triglycerides HDL Cholesterol Lipase Vitamin B12 TSH Urine WBC (Auto) Urine Chloride Urine Total Protein Vancomycin Trough Crossmatch 11/13/16 11/14/16 11/14/16 23:33 04:42 04:42 WBC 11.7 H RBC 3.01 L Hgb 9.3 L Hct 28.9 L MCV RDW 16.5 H Plt Count Lymph % (Auto) Coleman % (Auto) Coleman # Seg Neutrophils % Seg Neuts % (Manual) 79.0 H Lymphocytes % (Manual) 10.0 L Monocytes % (Manual) Basophils % (Manual) Nucleated RBC % Seg Neutrophils # Seg Neutrophils # Man 9.2 H Lymphocytes # (Manual) Monocytes # (Manual) Eosinophils # (Manual) Basophils # (Manual) PT INR APTT Heparin Anti-Xa Level POC ABG pH POC ABG pCO2 POC ABG pO2 Sodium Potassium Chloride Carbon Dioxide 16 L BUN Creatinine Glucose 102 H POC Glucose 173 H Calcium 7.5 L Phosphorus Magnesium AST Alkaline Phosphatase Troponin T C-Reactive Protein Total Protein Albumin Triglycerides HDL Cholesterol Lipase Vitamin B12 TSH Urine WBC (Auto) Urine Chloride Urine Total Protein Vancomycin Trough Crossmatch 11/14/16 11/14/16 11/14/16 11:43 16:57 19:45 WBC RBC Hgb Hct MCV RDW Plt Count Lymph % (Auto) Coleman % (Auto) Coleman # Seg Neutrophils % Seg Neuts % (Manual) Lymphocytes % (Manual) Monocytes % (Manual) Basophils % (Manual) Nucleated RBC % Seg Neutrophils # Seg Neutrophils # Man Lymphocytes # (Manual) Monocytes # (Manual) Eosinophils # (Manual) Basophils # (Manual) PT INR APTT Heparin Anti-Xa Level 0.71 H POC ABG pH POC ABG pCO2 POC ABG pO2 Sodium Potassium Chloride Carbon Dioxide BUN Creatinine Glucose POC Glucose 130 H 209 H Calcium Phosphorus Magnesium AST Alkaline Phosphatase Troponin T C-Reactive Protein Total Protein Albumin Triglycerides HDL Cholesterol Lipase Vitamin B12 TSH Urine WBC (Auto) Urine Chloride Urine Total Protein Vancomycin Trough Crossmatch 11/14/16 11/15/16 11/16/16 23:43 23:47 06:11 WBC RBC Hgb Hct MCV RDW Plt Count Lymph % (Auto) Coleman % (Auto) Coleman # Seg Neutrophils % Seg Neuts % (Manual) Lymphocytes % (Manual) Monocytes % (Manual) Basophils % (Manual) Nucleated RBC % Seg Neutrophils # Seg Neutrophils # Man Lymphocytes # (Manual) Monocytes # (Manual) Eosinophils # (Manual) Basophils # (Manual) PT INR APTT Heparin Anti-Xa Level POC ABG pH POC ABG pCO2 POC ABG pO2 Sodium Potassium Chloride Carbon Dioxide BUN Creatinine Glucose POC Glucose 167 H 114 H 125 H Calcium Phosphorus Magnesium AST Alkaline Phosphatase Troponin T C-Reactive Protein Total Protein Albumin Triglycerides HDL Cholesterol Lipase Vitamin B12 TSH Urine WBC (Auto) Urine Chloride Urine Total Protein Vancomycin Trough Crossmatch 11/16/16 11/16/16 11/16/16 09:05 09:05 09:05 WBC RBC 2.53 L Hgb 8.0 L Hct 23.7 L MCV RDW 15.9 H Plt Count Lymph % (Auto) Coleman % (Auto) Coleman # Seg Neutrophils % Seg Neuts % (Manual) Lymphocytes % (Manual) Monocytes % (Manual) Basophils % (Manual) Nucleated RBC % Seg Neutrophils # Seg Neutrophils # Man Lymphocytes # (Manual) Monocytes # (Manual) Eosinophils # (Manual) Basophils # (Manual) PT INR APTT Heparin Anti-Xa Level POC ABG pH POC ABG pCO2 POC ABG pO2 Sodium Potassium 2.5 L* D Chloride Carbon Dioxide 19 L BUN 5 L Creatinine Glucose 103 H POC Glucose Calcium 6.6 L Phosphorus Magnesium 1.3 L AST Alkaline Phosphatase Troponin T C-Reactive Protein Total Protein Albumin Triglycerides HDL Cholesterol Lipase Vitamin B12 TSH Urine WBC (Auto) Urine Chloride Urine Total Protein Vancomycin Trough Crossmatch 11/16/16 11/16/16 11/16/16 12:15 13:00 14:45 WBC RBC Hgb Hct MCV RDW Plt Count Lymph % (Auto) Coleman % (Auto) Coleman # Seg Neutrophils % Seg Neuts % (Manual) Lymphocytes % (Manual) Monocytes % (Manual) Basophils % (Manual) Nucleated RBC % Seg Neutrophils # Seg Neutrophils # Man Lymphocytes # (Manual) Monocytes # (Manual) Eosinophils # (Manual) Basophils # (Manual) PT 19.1 H INR 1.61 H APTT Heparin Anti-Xa Level POC ABG pH 7.479 H POC ABG pCO2 23.6 L POC ABG pO2 Sodium Potassium Chloride Carbon Dioxide BUN Creatinine Glucose POC Glucose 129 H Calcium Phosphorus Magnesium AST Alkaline Phosphatase Troponin T C-Reactive Protein Total Protein Albumin Triglycerides HDL Cholesterol Lipase Vitamin B12 TSH Urine WBC (Auto) Urine Chloride Urine Total Protein Vancomycin Trough Crossmatch 11/16/16 11/17/16 11/17/16 17:43 00:30 04:32 WBC RBC Hgb Hct MCV RDW Plt Count Lymph % (Auto) Coleman % (Auto) Coleman # Seg Neutrophils % Seg Neuts % (Manual) Lymphocytes % (Manual) Monocytes % (Manual) Basophils % (Manual) Nucleated RBC % Seg Neutrophils # Seg Neutrophils # Man Lymphocytes # (Manual) Monocytes # (Manual) Eosinophils # (Manual) Basophils # (Manual) PT INR APTT Heparin Anti-Xa Level POC ABG pH POC ABG pCO2 POC ABG pO2 Sodium Potassium Chloride Carbon Dioxide 18 L BUN Creatinine Glucose 127 H POC Glucose 224 H 259 H Calcium 7.5 L Phosphorus Magnesium AST Alkaline Phosphatase Troponin T C-Reactive Protein Total Protein Albumin Triglycerides HDL Cholesterol Lipase Vitamin B12 TSH Urine WBC (Auto) Urine Chloride Urine Total Protein Vancomycin Trough Crossmatch 11/17/16 11/17/16 11/17/16 05:42 08:34 12:19 WBC RBC 2.85 L Hgb 8.9 L Hct 26.5 L MCV RDW 16.2 H Plt Count Lymph % (Auto) Coleman % (Auto) Coleman # Seg Neutrophils % Seg Neuts % (Manual) Lymphocytes % (Manual) Monocytes % (Manual) Basophils % (Manual) Nucleated RBC % Seg Neutrophils # Seg Neutrophils # Man Lymphocytes # (Manual) Monocytes # (Manual) Eosinophils # (Manual) Basophils # (Manual) PT INR APTT Heparin Anti-Xa Level POC ABG pH POC ABG pCO2 POC ABG pO2 Sodium Potassium Chloride Carbon Dioxide BUN Creatinine Glucose POC Glucose 118 H 264 H Calcium Phosphorus Magnesium AST Alkaline Phosphatase Troponin T C-Reactive Protein Total Protein Albumin Triglycerides HDL Cholesterol Lipase Vitamin B12 TSH Urine WBC (Auto) Urine Chloride Urine Total Protein Vancomycin Trough Crossmatch 11/17/16 11/17/16 11/18/16 16:52 23:44 04:53 WBC RBC Hgb Hct MCV RDW Plt Count Lymph % (Auto) Coleman % (Auto) Coleman # Seg Neutrophils % Seg Neuts % (Manual) Lymphocytes % (Manual) Monocytes % (Manual) Basophils % (Manual) Nucleated RBC % Seg Neutrophils # Seg Neutrophils # Man Lymphocytes # (Manual) Monocytes # (Manual) Eosinophils # (Manual) Basophils # (Manual) PT INR APTT Heparin Anti-Xa Level POC ABG pH POC ABG pCO2 POC ABG pO2 Sodium Potassium Chloride Carbon Dioxide BUN Creatinine Glucose POC Glucose 256 H 109 H 287 H Calcium Phosphorus Magnesium AST Alkaline Phosphatase Troponin T C-Reactive Protein Total Protein Albumin Triglycerides HDL Cholesterol Lipase Vitamin B12 TSH Urine WBC (Auto) Urine Chloride Urine Total Protein Vancomycin Trough Crossmatch 11/18/16 11/18/16 11/18/16 05:31 05:45 05:45 WBC RBC Hgb Hct MCV RDW Plt Count Lymph % (Auto) Coleman % (Auto) Coleman # Seg Neutrophils % Seg Neuts % (Manual) Lymphocytes % (Manual) Monocytes % (Manual) Basophils % (Manual) Nucleated RBC % Seg Neutrophils # Seg Neutrophils # Man Lymphocytes # (Manual) Monocytes # (Manual) Eosinophils # (Manual) Basophils # (Manual) PT 20.1 H INR 1.72 H APTT 131.1 H* Heparin Anti-Xa Level 0.18 L POC ABG pH 7.252 L POC ABG pCO2 32.0 L POC ABG pO2 Sodium Potassium Chloride 107.1 H Carbon Dioxide 17 L BUN Creatinine Glucose 284 H POC Glucose Calcium 7.2 L Phosphorus Magnesium AST Alkaline Phosphatase Troponin T C-Reactive Protein Total Protein 5.5 L Albumin 2.1 L Triglycerides HDL Cholesterol Lipase Vitamin B12 TSH Urine WBC (Auto) Urine Chloride Urine Total Protein Vancomycin Trough Crossmatch 11/18/16 11/18/16 11/18/16 05:45 09:17 12:06 WBC 13.3 H RBC 3.07 L Hgb 9.2 L Hct 29.5 L MCV RDW 16.9 H Plt Count Lymph % (Auto) 11.0 L Coleman % (Auto) Coleman # Seg Neutrophils % 82.9 H Seg Neuts % (Manual) Lymphocytes % (Manual) Monocytes % (Manual) Basophils % (Manual) Nucleated RBC % Seg Neutrophils # 11.0 H Seg Neutrophils # Man Lymphocytes # (Manual) Monocytes # (Manual) Eosinophils # (Manual) Basophils # (Manual) PT INR APTT Heparin Anti-Xa Level POC ABG pH POC ABG pCO2 24.3 L POC ABG pO2 79 L Sodium Potassium Chloride Carbon Dioxide BUN Creatinine Glucose POC Glucose 433 H Calcium Phosphorus Magnesium AST Alkaline Phosphatase Troponin T C-Reactive Protein Total Protein Albumin Triglycerides HDL Cholesterol Lipase Vitamin B12 TSH Urine WBC (Auto) Urine Chloride Urine Total Protein Vancomycin Trough Crossmatch 11/18/16 11/18/16 11/18/16 12:09 13:00 17:22 WBC 12.6 H RBC 2.79 L Hgb 8.6 L Hct 26.6 L MCV RDW 17.0 H Plt Count Lymph % (Auto) Coleman % (Auto) Coleman # Seg Neutrophils % Seg Neuts % (Manual) 90.0 H Lymphocytes % (Manual) 8.0 L Monocytes % (Manual) Basophils % (Manual) Nucleated RBC % Seg Neutrophils # Seg Neutrophils # Man 11.3 H Lymphocytes # (Manual) 1.0 L Monocytes # (Manual) Eosinophils # (Manual) Basophils # (Manual) PT INR APTT Heparin Anti-Xa Level POC ABG pH POC ABG pCO2 POC ABG pO2 Sodium Potassium Chloride Carbon Dioxide BUN Creatinine Glucose POC Glucose 429 H 297 H Calcium Phosphorus Magnesium AST Alkaline Phosphatase Troponin T C-Reactive Protein Total Protein Albumin Triglycerides HDL Cholesterol Lipase Vitamin B12 TSH Urine WBC (Auto) Urine Chloride Urine Total Protein Vancomycin Trough Crossmatch 11/18/16 11/19/16 11/19/16 23:27 04:30 04:30 WBC RBC 2.92 L Hgb 8.8 L Hct 27.0 L MCV RDW 16.6 H Plt Count Lymph % (Auto) Coleman % (Auto) Coleman # Seg Neutrophils % Seg Neuts % (Manual) Lymphocytes % (Manual) Monocytes % (Manual) Basophils % (Manual) Nucleated RBC % Seg Neutrophils # Seg Neutrophils # Man Lymphocytes # (Manual) Monocytes # (Manual) Eosinophils # (Manual) Basophils # (Manual) PT INR APTT Heparin Anti-Xa Level POC ABG pH POC ABG pCO2 POC ABG pO2 Sodium Potassium 3.0 L Chloride 107.9 H Carbon Dioxide 20 L BUN Creatinine Glucose 231 H POC Glucose 268 H Calcium 7.1 L Phosphorus Magnesium AST Alkaline Phosphatase Troponin T C-Reactive Protein Total Protein 5.5 L Albumin 2.1 L Triglycerides HDL Cholesterol Lipase Vitamin B12 TSH Urine WBC (Auto) Urine Chloride Urine Total Protein Vancomycin Trough Crossmatch 11/19/16 11/19/16 11/19/16 04:40 06:40 10:00 WBC RBC Hgb Hct MCV RDW Plt Count Lymph % (Auto) Coleman % (Auto) Coleman # Seg Neutrophils % Seg Neuts % (Manual) Lymphocytes % (Manual) Monocytes % (Manual) Basophils % (Manual) Nucleated RBC % Seg Neutrophils # Seg Neutrophils # Man Lymphocytes # (Manual) Monocytes # (Manual) Eosinophils # (Manual) Basophils # (Manual) PT INR APTT Heparin Anti-Xa Level POC ABG pH POC ABG pCO2 POC ABG pO2 Sodium Potassium Chloride Carbon Dioxide BUN Creatinine Glucose POC Glucose 267 H 244 H Calcium Phosphorus Magnesium 1.4 L AST Alkaline Phosphatase Troponin T C-Reactive Protein Total Protein Albumin Triglycerides HDL Cholesterol Lipase Vitamin B12 TSH Urine WBC (Auto) Urine Chloride Urine Total Protein Vancomycin Trough Crossmatch 11/19/16 11/19/16 11/19/16 12:08 18:10 23:40 WBC RBC Hgb Hct MCV RDW Plt Count Lymph % (Auto) Coleman % (Auto) Coleman # Seg Neutrophils % Seg Neuts % (Manual) Lymphocytes % (Manual) Monocytes % (Manual) Basophils % (Manual) Nucleated RBC % Seg Neutrophils # Seg Neutrophils # Man Lymphocytes # (Manual) Monocytes # (Manual) Eosinophils # (Manual) Basophils # (Manual) PT INR APTT Heparin Anti-Xa Level POC ABG pH POC ABG pCO2 POC ABG pO2 Sodium Potassium Chloride Carbon Dioxide BUN Creatinine Glucose POC Glucose 254 H 265 H 197 H Calcium Phosphorus Magnesium AST Alkaline Phosphatase Troponin T C-Reactive Protein Total Protein Albumin Triglycerides HDL Cholesterol Lipase Vitamin B12 TSH Urine WBC (Auto) Urine Chloride Urine Total Protein Vancomycin Trough Crossmatch 11/20/16 11/20/16 11/20/16 05:00 05:44 11:33 WBC RBC Hgb Hct MCV RDW Plt Count Lymph % (Auto) Coleman % (Auto) Coleman # Seg Neutrophils % Seg Neuts % (Manual) Lymphocytes % (Manual) Monocytes % (Manual) Basophils % (Manual) Nucleated RBC % Seg Neutrophils # Seg Neutrophils # Man Lymphocytes # (Manual) Monocytes # (Manual) Eosinophils # (Manual) Basophils # (Manual) PT INR APTT Heparin Anti-Xa Level POC ABG pH POC ABG pCO2 POC ABG pO2 Sodium Potassium 3.4 L Chloride 107.4 H Carbon Dioxide 20 L BUN Creatinine Glucose 140 H POC Glucose 163 H 108 H Calcium 7.2 L Phosphorus Magnesium AST Alkaline Phosphatase Troponin T C-Reactive Protein Total Protein Albumin Triglycerides HDL Cholesterol Lipase Vitamin B12 TSH Urine WBC (Auto) Urine Chloride Urine Total Protein Vancomycin Trough Crossmatch 11/20/16 11/20/16 11/20/16 13:03 16:45 23:26 WBC RBC Hgb Hct MCV RDW Plt Count Lymph % (Auto) Coleman % (Auto) Coleman # Seg Neutrophils % Seg Neuts % (Manual) Lymphocytes % (Manual) Monocytes % (Manual) Basophils % (Manual) Nucleated RBC % Seg Neutrophils # Seg Neutrophils # Man Lymphocytes # (Manual) Monocytes # (Manual) Eosinophils # (Manual) Basophils # (Manual) PT INR APTT Heparin Anti-Xa Level POC ABG pH POC ABG pCO2 POC ABG pO2 Sodium Potassium Chloride Carbon Dioxide BUN Creatinine Glucose POC Glucose 113 H 168 H Calcium Phosphorus Magnesium AST Alkaline Phosphatase Troponin T C-Reactive Protein Total Protein Albumin Triglycerides HDL Cholesterol Lipase Vitamin B12 TSH Urine WBC (Auto) Urine Chloride Urine Total Protein Vancomycin Trough 45.8 H Crossmatch 11/21/16 11/21/16 11/21/16 05:00 05:27 09:50 WBC RBC Hgb Hct MCV RDW Plt Count Lymph % (Auto) Coleman % (Auto) Coleman # Seg Neutrophils % Seg Neuts % (Manual) Lymphocytes % (Manual) Monocytes % (Manual) Basophils % (Manual) Nucleated RBC % Seg Neutrophils # Seg Neutrophils # Man Lymphocytes # (Manual) Monocytes # (Manual) Eosinophils # (Manual) Basophils # (Manual) PT INR APTT Heparin Anti-Xa Level POC ABG pH POC ABG pCO2 POC ABG pO2 Sodium 133 L D Potassium Chloride Carbon Dioxide 19 L BUN Creatinine Glucose 280 H POC Glucose 222 H Calcium 7.4 L Phosphorus Magnesium AST Alkaline Phosphatase Troponin T C-Reactive Protein Total Protein Albumin Triglycerides HDL Cholesterol Lipase Vitamin B12 TSH Urine WBC (Auto) Urine Chloride Urine Total Protein Vancomycin Trough 30.4 H Crossmatch 11/21/16 11/21/16 11/21/16 12:36 17:17 18:34 WBC RBC Hgb Hct MCV RDW Plt Count Lymph % (Auto) Coleman % (Auto) Coleman # Seg Neutrophils % Seg Neuts % (Manual) Lymphocytes % (Manual) Monocytes % (Manual) Basophils % (Manual) Nucleated RBC % Seg Neutrophils # Seg Neutrophils # Man Lymphocytes # (Manual) Monocytes # (Manual) Eosinophils # (Manual) Basophils # (Manual) PT INR APTT Heparin Anti-Xa Level POC ABG pH POC ABG pCO2 POC ABG pO2 Sodium Potassium Chloride Carbon Dioxide BUN Creatinine Glucose POC Glucose 306 H 339 H 318 H Calcium Phosphorus Magnesium AST Alkaline Phosphatase Troponin T C-Reactive Protein Total Protein Albumin Triglycerides HDL Cholesterol Lipase Vitamin B12 TSH Urine WBC (Auto) Urine Chloride Urine Total Protein Vancomycin Trough Crossmatch 11/21/16 11/22/16 11/22/16 23:16 07:19 11:49 WBC 11.1 H RBC 2.60 L Hgb 7.8 L Hct 24.4 L MCV RDW 16.3 H Plt Count Lymph % (Auto) Coleman % (Auto) Coleman # Seg Neutrophils % 76.8 H Seg Neuts % (Manual) Lymphocytes % (Manual) Monocytes % (Manual) Basophils % (Manual) Nucleated RBC % Seg Neutrophils # 8.5 H Seg Neutrophils # Man Lymphocytes # (Manual) Monocytes # (Manual) Eosinophils # (Manual) Basophils # (Manual) PT INR APTT Heparin Anti-Xa Level POC ABG pH POC ABG pCO2 POC ABG pO2 Sodium Potassium Chloride Carbon Dioxide BUN Creatinine Glucose POC Glucose 286 H 371 H Calcium Phosphorus Magnesium AST Alkaline Phosphatase Troponin T C-Reactive Protein Total Protein Albumin Triglycerides HDL Cholesterol Lipase Vitamin B12 TSH Urine WBC (Auto) Urine Chloride Urine Total Protein Vancomycin Trough Crossmatch 11/22/16 11/22/16 11/22/16 11:50 11:50 17:34 WBC RBC Hgb Hct MCV RDW Plt Count Lymph % (Auto) Coleman % (Auto) Coleman # Seg Neutrophils % Seg Neuts % (Manual) Lymphocytes % (Manual) Monocytes % (Manual) Basophils % (Manual) Nucleated RBC % Seg Neutrophils # Seg Neutrophils # Man Lymphocytes # (Manual) Monocytes # (Manual) Eosinophils # (Manual) Basophils # (Manual) PT INR APTT Heparin Anti-Xa Level POC ABG pH POC ABG pCO2 POC ABG pO2 Sodium 130 L Potassium Chloride Carbon Dioxide 19 L BUN 20 H Creatinine Glucose 266 H POC Glucose 262 H 284 H Calcium 7.2 L Phosphorus Magnesium AST Alkaline Phosphatase Troponin T C-Reactive Protein Total Protein Albumin Triglycerides HDL Cholesterol Lipase Vitamin B12 TSH Urine WBC (Auto) Urine Chloride Urine Total Protein Vancomycin Trough Crossmatch 11/22/16 11/22/16 11/22/16 17:43 20:04 23:38 WBC RBC Hgb Hct MCV RDW Plt Count Lymph % (Auto) Coleman % (Auto) Coleman # Seg Neutrophils % Seg Neuts % (Manual) Lymphocytes % (Manual) Monocytes % (Manual) Basophils % (Manual) Nucleated RBC % Seg Neutrophils # Seg Neutrophils # Man Lymphocytes # (Manual) Monocytes # (Manual) Eosinophils # (Manual) Basophils # (Manual) PT INR APTT Heparin Anti-Xa Level POC ABG pH 7.492 H POC ABG pCO2 23.2 L POC ABG pO2 60 L Sodium Potassium Chloride Carbon Dioxide BUN Creatinine Glucose POC Glucose 261 H 253 H Calcium Phosphorus Magnesium AST Alkaline Phosphatase Troponin T C-Reactive Protein Total Protein Albumin Triglycerides HDL Cholesterol Lipase Vitamin B12 TSH Urine WBC (Auto) Urine Chloride Urine Total Protein Vancomycin Trough Crossmatch 11/23/16 11/23/16 11/23/16 06:27 08:20 11:54 WBC RBC Hgb 8.2 L Hct 24.9 L MCV RDW Plt Count Lymph % (Auto) Coleman % (Auto) Coleman # Seg Neutrophils % Seg Neuts % (Manual) Lymphocytes % (Manual) Monocytes % (Manual) Basophils % (Manual) Nucleated RBC % Seg Neutrophils # Seg Neutrophils # Man Lymphocytes # (Manual) Monocytes # (Manual) Eosinophils # (Manual) Basophils # (Manual) PT INR APTT Heparin Anti-Xa Level POC ABG pH POC ABG pCO2 POC ABG pO2 Sodium Potassium Chloride Carbon Dioxide BUN Creatinine Glucose POC Glucose 333 H 286 H Calcium Phosphorus Magnesium AST Alkaline Phosphatase Troponin T C-Reactive Protein Total Protein Albumin Triglycerides HDL Cholesterol Lipase Vitamin B12 TSH Urine WBC (Auto) Urine Chloride Urine Total Protein Vancomycin Trough Crossmatch 11/23/16 11/23/16 11/24/16 17:53 23:51 00:12 WBC RBC Hgb Hct MCV RDW Plt Count Lymph % (Auto) Coleman % (Auto) Coleman # Seg Neutrophils % Seg Neuts % (Manual) Lymphocytes % (Manual) Monocytes % (Manual) Basophils % (Manual) Nucleated RBC % Seg Neutrophils # Seg Neutrophils # Man Lymphocytes # (Manual) Monocytes # (Manual) Eosinophils # (Manual) Basophils # (Manual) PT INR APTT Heparin Anti-Xa Level POC ABG pH POC ABG pCO2 POC ABG pO2 Sodium Potassium Chloride Carbon Dioxide BUN Creatinine Glucose POC Glucose 195 H 214 H 223 H Calcium Phosphorus Magnesium AST Alkaline Phosphatase Troponin T C-Reactive Protein Total Protein Albumin Triglycerides HDL Cholesterol Lipase Vitamin B12 TSH Urine WBC (Auto) Urine Chloride Urine Total Protein Vancomycin Trough Crossmatch 11/24/16 11/24/16 11/24/16 04:50 04:50 06:08 WBC RBC 2.74 L Hgb 8.4 L Hct 26.1 L MCV RDW 16.0 H Plt Count Lymph % (Auto) Coleman % (Auto) Coleman # Seg Neutrophils % Seg Neuts % (Manual) Lymphocytes % (Manual) Monocytes % (Manual) Basophils % (Manual) Nucleated RBC % Seg Neutrophils # Seg Neutrophils # Man Lymphocytes # (Manual) Monocytes # (Manual) Eosinophils # (Manual) Basophils # (Manual) PT INR APTT Heparin Anti-Xa Level POC ABG pH POC ABG pCO2 POC ABG pO2 Sodium 133 L Potassium Chloride Carbon Dioxide 19 L BUN 23 H Creatinine Glucose 200 H POC Glucose 187 H Calcium 7.2 L Phosphorus Magnesium AST Alkaline Phosphatase Troponin T C-Reactive Protein Total Protein Albumin Triglycerides HDL Cholesterol Lipase Vitamin B12 TSH Urine WBC (Auto) Urine Chloride Urine Total Protein Vancomycin Trough Crossmatch 11/24/16 11/24/16 11/24/16 12:02 17:43 23:35 WBC RBC Hgb Hct MCV RDW Plt Count Lymph % (Auto) Coleman % (Auto) Coleman # Seg Neutrophils % Seg Neuts % (Manual) Lymphocytes % (Manual) Monocytes % (Manual) Basophils % (Manual) Nucleated RBC % Seg Neutrophils # Seg Neutrophils # Man Lymphocytes # (Manual) Monocytes # (Manual) Eosinophils # (Manual) Basophils # (Manual) PT INR APTT Heparin Anti-Xa Level POC ABG pH POC ABG pCO2 POC ABG pO2 Sodium Potassium Chloride Carbon Dioxide BUN Creatinine Glucose POC Glucose 250 H 226 H 230 H Calcium Phosphorus Magnesium AST Alkaline Phosphatase Troponin T C-Reactive Protein Total Protein Albumin Triglycerides HDL Cholesterol Lipase Vitamin B12 TSH Urine WBC (Auto) Urine Chloride Urine Total Protein Vancomycin Trough Crossmatch 11/25/16 11/25/16 11/25/16 05:47 11:37 18:00 WBC RBC Hgb Hct MCV RDW Plt Count Lymph % (Auto) Coleman % (Auto) Coleman # Seg Neutrophils % Seg Neuts % (Manual) Lymphocytes % (Manual) Monocytes % (Manual) Basophils % (Manual) Nucleated RBC % Seg Neutrophils # Seg Neutrophils # Man Lymphocytes # (Manual) Monocytes # (Manual) Eosinophils # (Manual) Basophils # (Manual) PT INR APTT Heparin Anti-Xa Level POC ABG pH POC ABG pCO2 POC ABG pO2 Sodium Potassium Chloride Carbon Dioxide BUN Creatinine Glucose POC Glucose 229 H 226 H 226 H Calcium Phosphorus Magnesium AST Alkaline Phosphatase Troponin T C-Reactive Protein Total Protein Albumin Triglycerides HDL Cholesterol Lipase Vitamin B12 TSH Urine WBC (Auto) Urine Chloride Urine Total Protein Vancomycin Trough Crossmatch 11/26/16 11/26/16 11/26/16 05:43 12:05 17:05 WBC RBC Hgb Hct MCV RDW Plt Count Lymph % (Auto) Coleman % (Auto) Coleman # Seg Neutrophils % Seg Neuts % (Manual) Lymphocytes % (Manual) Monocytes % (Manual) Basophils % (Manual) Nucleated RBC % Seg Neutrophils # Seg Neutrophils # Man Lymphocytes # (Manual) Monocytes # (Manual) Eosinophils # (Manual) Basophils # (Manual) PT INR APTT Heparin Anti-Xa Level POC ABG pH POC ABG pCO2 POC ABG pO2 Sodium Potassium Chloride Carbon Dioxide BUN Creatinine Glucose POC Glucose 262 H 260 H 193 H Calcium Phosphorus Magnesium AST Alkaline Phosphatase Troponin T C-Reactive Protein Total Protein Albumin Triglycerides HDL Cholesterol Lipase Vitamin B12 TSH Urine WBC (Auto) Urine Chloride Urine Total Protein Vancomycin Trough Crossmatch 11/26/16 11/27/16 11/27/16 23:46 05:49 12:36 WBC RBC Hgb Hct MCV RDW Plt Count Lymph % (Auto) Coleman % (Auto) Coleman # Seg Neutrophils % Seg Neuts % (Manual) Lymphocytes % (Manual) Monocytes % (Manual) Basophils % (Manual) Nucleated RBC % Seg Neutrophils # Seg Neutrophils # Man Lymphocytes # (Manual) Monocytes # (Manual) Eosinophils # (Manual) Basophils # (Manual) PT INR APTT Heparin Anti-Xa Level POC ABG pH POC ABG pCO2 POC ABG pO2 Sodium Potassium Chloride Carbon Dioxide BUN Creatinine Glucose POC Glucose 183 H 182 H 250 H Calcium Phosphorus Magnesium AST Alkaline Phosphatase Troponin T C-Reactive Protein Total Protein Albumin Triglycerides HDL Cholesterol Lipase Vitamin B12 TSH Urine WBC (Auto) Urine Chloride Urine Total Protein Vancomycin Trough Crossmatch 11/27/16 11/27/16 11/27/16 17:02 17:45 22:42 WBC RBC Hgb Hct MCV RDW Plt Count Lymph % (Auto) Coleman % (Auto) Coleman # Seg Neutrophils % Seg Neuts % (Manual) Lymphocytes % (Manual) Monocytes % (Manual) Basophils % (Manual) Nucleated RBC % Seg Neutrophils # Seg Neutrophils # Man Lymphocytes # (Manual) Monocytes # (Manual) Eosinophils # (Manual) Basophils # (Manual) PT INR APTT Heparin Anti-Xa Level POC ABG pH 7.331 L POC ABG pCO2 POC ABG pO2 46 L Sodium Potassium Chloride Carbon Dioxide BUN Creatinine Glucose POC Glucose 275 H Calcium Phosphorus Magnesium AST Alkaline Phosphatase Troponin T 0.093 H C-Reactive Protein Total Protein Albumin Triglycerides HDL Cholesterol Lipase Vitamin B12 TSH Urine WBC (Auto) Urine Chloride Urine Total Protein Vancomycin Trough Crossmatch 11/27/16 11/28/16 11/28/16 23:28 05:46 05:46 WBC RBC 2.88 L Hgb 8.9 L Hct 27.7 L MCV RDW 17.2 H Plt Count Lymph % (Auto) Coleman % (Auto) Coleman # Seg Neutrophils % Seg Neuts % (Manual) Lymphocytes % (Manual) Monocytes % (Manual) Basophils % (Manual) Nucleated RBC % Seg Neutrophils # Seg Neutrophils # Man Lymphocytes # (Manual) Monocytes # (Manual) Eosinophils # (Manual) Basophils # (Manual) PT 15.1 H INR 1.20 H APTT Heparin Anti-Xa Level POC ABG pH POC ABG pCO2 POC ABG pO2 Sodium Potassium Chloride Carbon Dioxide BUN Creatinine Glucose POC Glucose 237 H Calcium Phosphorus Magnesium AST Alkaline Phosphatase Troponin T C-Reactive Protein Total Protein Albumin Triglycerides HDL Cholesterol Lipase Vitamin B12 TSH Urine WBC (Auto) Urine Chloride Urine Total Protein Vancomycin Trough Crossmatch 11/28/16 11/28/16 11/28/16 05:46 05:46 05:56 WBC RBC Hgb Hct MCV RDW Plt Count Lymph % (Auto) Coleman % (Auto) Coleman # Seg Neutrophils % Seg Neuts % (Manual) Lymphocytes % (Manual) Monocytes % (Manual) Basophils % (Manual) Nucleated RBC % Seg Neutrophils # Seg Neutrophils # Man Lymphocytes # (Manual) Monocytes # (Manual) Eosinophils # (Manual) Basophils # (Manual) PT INR APTT Heparin Anti-Xa Level POC ABG pH POC ABG pCO2 POC ABG pO2 Sodium Potassium Chloride Carbon Dioxide 21 L BUN 27 H Creatinine Glucose 237 H POC Glucose 275 H Calcium 8.1 L Phosphorus Magnesium AST Alkaline Phosphatase Troponin T 0.090 H C-Reactive Protein Total Protein Albumin Triglycerides 154 H HDL Cholesterol 38 L Lipase Vitamin B12 TSH Urine WBC (Auto) Urine Chloride Urine Total Protein Vancomycin Trough Crossmatch 11/28/16 11/28/16 11/28/16 11:20 18:16 23:30 WBC RBC Hgb Hct MCV RDW Plt Count Lymph % (Auto) Coleman % (Auto) Coleman # Seg Neutrophils % Seg Neuts % (Manual) Lymphocytes % (Manual) Monocytes % (Manual) Basophils % (Manual) Nucleated RBC % Seg Neutrophils # Seg Neutrophils # Man Lymphocytes # (Manual) Monocytes # (Manual) Eosinophils # (Manual) Basophils # (Manual) PT INR APTT Heparin Anti-Xa Level POC ABG pH POC ABG pCO2 POC ABG pO2 Sodium Potassium Chloride Carbon Dioxide BUN Creatinine Glucose POC Glucose 277 H 222 H 143 H Calcium Phosphorus Magnesium AST Alkaline Phosphatase Troponin T C-Reactive Protein Total Protein Albumin Triglycerides HDL Cholesterol Lipase Vitamin B12 TSH Urine WBC (Auto) Urine Chloride Urine Total Protein Vancomycin Trough Crossmatch 0411/29/16 11/29/16 04:46 05:42 12:10 WBC RBC Hgb Hct MCV RDW Plt Count Lymph % (Auto) Coleman % (Auto) Coleman # Seg Neutrophils % Seg Neuts % (Manual) Lymphocytes % (Manual) Monocytes % (Manual) Basophils % (Manual) Nucleated RBC % Seg Neutrophils # Seg Neutrophils # Man Lymphocytes # (Manual) Monocytes # (Manual) Eosinophils # (Manual) Basophils # (Manual) PT 16.7 H INR 1.36 H APTT Heparin Anti-Xa Level POC ABG pH POC ABG pCO2 POC ABG pO2 Sodium Potassium Chloride Carbon Dioxide BUN Creatinine Glucose POC Glucose 165 H 232 H Calcium Phosphorus Magnesium AST Alkaline Phosphatase Troponin T C-Reactive Protein Total Protein Albumin Triglycerides HDL Cholesterol Lipase Vitamin B12 TSH Urine WBC (Auto) Urine Chloride Urine Total Protein Vancomycin Trough Crossmatch 11/29/16 11/30/16 11/30/16 18:09 00:04 05:04 WBC RBC Hgb Hct MCV RDW Plt Count Lymph % (Auto) Coleman % (Auto) Coleman # Seg Neutrophils % Seg Neuts % (Manual) Lymphocytes % (Manual) Monocytes % (Manual) Basophils % (Manual) Nucleated RBC % Seg Neutrophils # Seg Neutrophils # Man Lymphocytes # (Manual) Monocytes # (Manual) Eosinophils # (Manual) Basophils # (Manual) PT 17.8 H INR 1.47 H APTT Heparin Anti-Xa Level POC ABG pH POC ABG pCO2 POC ABG pO2 Sodium Potassium Chloride Carbon Dioxide BUN Creatinine Glucose POC Glucose 214 H 110 H Calcium Phosphorus Magnesium AST Alkaline Phosphatase Troponin T C-Reactive Protein Total Protein Albumin Triglycerides HDL Cholesterol Lipase Vitamin B12 TSH Urine WBC (Auto) Urine Chloride Urine Total Protein Vancomycin Trough Crossmatch 11/30/16 11/30/16 11/30/16 05:46 11:59 17:51 WBC RBC Hgb Hct MCV RDW Plt Count Lymph % (Auto) Coleman % (Auto) Coleman # Seg Neutrophils % Seg Neuts % (Manual) Lymphocytes % (Manual) Monocytes % (Manual) Basophils % (Manual) Nucleated RBC % Seg Neutrophils # Seg Neutrophils # Man Lymphocytes # (Manual) Monocytes # (Manual) Eosinophils # (Manual) Basophils # (Manual) PT INR APTT Heparin Anti-Xa Level POC ABG pH POC ABG pCO2 POC ABG pO2 Sodium Potassium Chloride Carbon Dioxide BUN Creatinine Glucose POC Glucose 118 H 163 H 134 H Calcium Phosphorus Magnesium AST Alkaline Phosphatase Troponin T C-Reactive Protein Total Protein Albumin Triglycerides HDL Cholesterol Lipase Vitamin B12 TSH Urine WBC (Auto) Urine Chloride Urine Total Protein Vancomycin Trough Crossmatch 11/30/16 12/01/16 12/01/16 23:48 05:43 07:25 WBC RBC Hgb Hct MCV RDW Plt Count Lymph % (Auto) Coleman % (Auto) Coleman # Seg Neutrophils % Seg Neuts % (Manual) Lymphocytes % (Manual) Monocytes % (Manual) Basophils % (Manual) Nucleated RBC % Seg Neutrophils # Seg Neutrophils # Man Lymphocytes # (Manual) Monocytes # (Manual) Eosinophils # (Manual) Basophils # (Manual) PT 19.6 H INR 1.66 H APTT Heparin Anti-Xa Level POC ABG pH POC ABG pCO2 POC ABG pO2 Sodium Potassium Chloride Carbon Dioxide BUN Creatinine Glucose POC Glucose 127 H 161 H Calcium Phosphorus Magnesium AST Alkaline Phosphatase Troponin T C-Reactive Protein Total Protein Albumin Triglycerides HDL Cholesterol Lipase Vitamin B12 TSH Urine WBC (Auto) Urine Chloride Urine Total Protein Vancomycin Trough Crossmatch 12/01/16 12/01/16 12/01/16 11:45 17:24 23:42 WBC RBC Hgb Hct MCV RDW Plt Count Lymph % (Auto) Coleman % (Auto) Coleman # Seg Neutrophils % Seg Neuts % (Manual) Lymphocytes % (Manual) Monocytes % (Manual) Basophils % (Manual) Nucleated RBC % Seg Neutrophils # Seg Neutrophils # Man Lymphocytes # (Manual) Monocytes # (Manual) Eosinophils # (Manual) Basophils # (Manual) PT INR APTT Heparin Anti-Xa Level POC ABG pH POC ABG pCO2 POC ABG pO2 Sodium Potassium Chloride Carbon Dioxide BUN Creatinine Glucose POC Glucose 187 H 113 H 132 H Calcium Phosphorus Magnesium AST Alkaline Phosphatase Troponin T C-Reactive Protein Total Protein Albumin Triglycerides HDL Cholesterol Lipase Vitamin B12 TSH Urine WBC (Auto) Urine Chloride Urine Total Protein Vancomycin Trough Crossmatch 12/02/16 12/02/16 12/02/16 05:07 05:14 11:31 WBC RBC Hgb Hct MCV RDW Plt Count Lymph % (Auto) Coleman % (Auto) Coleman # Seg Neutrophils % Seg Neuts % (Manual) Lymphocytes % (Manual) Monocytes % (Manual) Basophils % (Manual) Nucleated RBC % Seg Neutrophils # Seg Neutrophils # Man Lymphocytes # (Manual) Monocytes # (Manual) Eosinophils # (Manual) Basophils # (Manual) PT 20.3 H INR 1.74 H APTT Heparin Anti-Xa Level POC ABG pH POC ABG pCO2 POC ABG pO2 Sodium Potassium Chloride Carbon Dioxide BUN Creatinine Glucose POC Glucose 172 H 209 H Calcium Phosphorus Magnesium AST Alkaline Phosphatase Troponin T C-Reactive Protein Total Protein Albumin Triglycerides HDL Cholesterol Lipase Vitamin B12 TSH Urine WBC (Auto) Urine Chloride Urine Total Protein Vancomycin Trough Crossmatch 12/02/16 12/02/16 12/03/16 13:59 17:30 04:00 WBC RBC Hgb 7.9 L Hct 25.1 L MCV RDW Plt Count Lymph % (Auto) Coleman % (Auto) Coleman # Seg Neutrophils % Seg Neuts % (Manual) Lymphocytes % (Manual) Monocytes % (Manual) Basophils % (Manual) Nucleated RBC % Seg Neutrophils # Seg Neutrophils # Man Lymphocytes # (Manual) Monocytes # (Manual) Eosinophils # (Manual) Basophils # (Manual) PT INR APTT Heparin Anti-Xa Level POC ABG pH POC ABG pCO2 POC ABG pO2 Sodium Potassium Chloride Carbon Dioxide BUN Creatinine Glucose POC Glucose 200 H 160 H Calcium Phosphorus Magnesium AST Alkaline Phosphatase Troponin T C-Reactive Protein Total Protein Albumin Triglycerides HDL Cholesterol Lipase Vitamin B12 TSH Urine WBC (Auto) Urine Chloride Urine Total Protein Vancomycin Trough Crossmatch 12/03/16 12/03/16 12/03/16 05:27 05:29 11:22 WBC RBC Hgb Hct MCV RDW Plt Count Lymph % (Auto) Coleman % (Auto) Coleman # Seg Neutrophils % Seg Neuts % (Manual) Lymphocytes % (Manual) Monocytes % (Manual) Basophils % (Manual) Nucleated RBC % Seg Neutrophils # Seg Neutrophils # Man Lymphocytes # (Manual) Monocytes # (Manual) Eosinophils # (Manual) Basophils # (Manual) PT 19.6 H INR 1.66 H APTT Heparin Anti-Xa Level POC ABG pH POC ABG pCO2 POC ABG pO2 Sodium Potassium Chloride Carbon Dioxide BUN Creatinine Glucose POC Glucose 149 H 222 H Calcium Phosphorus Magnesium AST Alkaline Phosphatase Troponin T C-Reactive Protein Total Protein Albumin Triglycerides HDL Cholesterol Lipase Vitamin B12 TSH Urine WBC (Auto) Urine Chloride Urine Total Protein Vancomycin Trough Crossmatch 12/03/16 12/04/16 12/04/16 16:47 00:25 05:20 WBC RBC Hgb Hct MCV RDW Plt Count Lymph % (Auto) Coleman % (Auto) Coleman # Seg Neutrophils % Seg Neuts % (Manual) Lymphocytes % (Manual) Monocytes % (Manual) Basophils % (Manual) Nucleated RBC % Seg Neutrophils # Seg Neutrophils # Man Lymphocytes # (Manual) Monocytes # (Manual) Eosinophils # (Manual) Basophils # (Manual) PT 15.8 H INR 1.27 H APTT Heparin Anti-Xa Level POC ABG pH POC ABG pCO2 POC ABG pO2 Sodium Potassium Chloride Carbon Dioxide BUN Creatinine Glucose POC Glucose 149 H 154 H Calcium Phosphorus Magnesium AST Alkaline Phosphatase Troponin T C-Reactive Protein Total Protein Albumin Triglycerides HDL Cholesterol Lipase Vitamin B12 TSH Urine WBC (Auto) Urine Chloride Urine Total Protein Vancomycin Trough Crossmatch 12/04/16 12/04/16 12/04/16 05:42 11:45 13:12 WBC RBC Hgb Hct MCV RDW Plt Count Lymph % (Auto) Coleman % (Auto) Coleman # Seg Neutrophils % Seg Neuts % (Manual) Lymphocytes % (Manual) Monocytes % (Manual) Basophils % (Manual) Nucleated RBC % Seg Neutrophils # Seg Neutrophils # Man Lymphocytes # (Manual) Monocytes # (Manual) Eosinophils # (Manual) Basophils # (Manual) PT INR APTT Heparin Anti-Xa Level POC ABG pH POC ABG pCO2 POC ABG pO2 Sodium Potassium Chloride Carbon Dioxide BUN 29 H Creatinine Glucose 208 H POC Glucose 198 H 221 H Calcium Phosphorus Magnesium AST Alkaline Phosphatase Troponin T C-Reactive Protein Total Protein Albumin Triglycerides HDL Cholesterol Lipase Vitamin B12 TSH Urine WBC (Auto) Urine Chloride Urine Total Protein Vancomycin Trough Crossmatch 12/05/16 12/05/16 12/06/16 14:30 19:05 05:25 WBC RBC Hgb Hct MCV RDW Plt Count Lymph % (Auto) Coleman % (Auto) Coleman # Seg Neutrophils % Seg Neuts % (Manual) Lymphocytes % (Manual) Monocytes % (Manual) Basophils % (Manual) Nucleated RBC % Seg Neutrophils # Seg Neutrophils # Man Lymphocytes # (Manual) Monocytes # (Manual) Eosinophils # (Manual) Basophils # (Manual) PT INR APTT Heparin Anti-Xa Level POC ABG pH POC ABG pCO2 POC ABG pO2 Sodium Potassium Chloride Carbon Dioxide BUN Creatinine Glucose POC Glucose 205 H 110 H 115 H Calcium Phosphorus Magnesium AST Alkaline Phosphatase Troponin T C-Reactive Protein Total Protein Albumin Triglycerides HDL Cholesterol Lipase Vitamin B12 TSH Urine WBC (Auto) Urine Chloride Urine Total Protein Vancomycin Trough Crossmatch Allied health notes reviewed: RT
[2016-12-06] MEDS: NORMODYNE IV PRN (11:30)
[2016-12-06 11:42] VITALS: BP 203/97
== END 2016-12-06 11:30 | DRG 3 ==
LOC: ED 03:53 → CC1 06:30
PROVIDERS: ADMIT Internal Medicine; ATTEND Internal Medicine
PROC: 5A1955Z Respiratory Ventilation, Greater than 96 Consecutive Hours (ICD-10-PCS; principal; 2016-10-13)
PROC: 0BH17EZ Insertion of Endotracheal Airway into Trachea, Via Natural or Artificial Opening (ICD-10-PCS; 2016-10-13)
PROC: 4A033R1 Measurement of Arterial Saturation, Peripheral, Percutaneous Approach (ICD-10-PCS; 2016-10-13)
PROC: 02H633Z Insertion of Infusion Device into Right Atrium, Percutaneous Approach (ICD-10-PCS; 2016-10-18)
PROC: 30233N1 Transfusion of Nonautologous Red Blood Cells into Peripheral Vein, Percutaneous Approach (ICD-10-PCS; 2016-10-22)
PROC: 0B113F4 Bypass Trachea to Cutaneous with Tracheostomy Device, Percutaneous Approach (ICD-10-PCS; 2016-11-02)
PROC: 047K3ZZ Dilation of Right Femoral Artery, Percutaneous Approach (ICD-10-PCS; 2016-11-05)
PROC: 047T3ZZ Dilation of Right Peroneal Artery, Percutaneous Approach (ICD-10-PCS; 2016-11-05)
PROC: 04CK3ZZ Extirpation of Matter from Right Femoral Artery, Percutaneous Approach (ICD-10-PCS; 2016-11-05)
PROC: 047P3ZZ Dilation of Right Anterior Tibial Artery, Percutaneous Approach (ICD-10-PCS; 2016-11-05)
PROC: 0Y6F0ZZ Detachment at Right Knee Region, Open Approach (ICD-10-PCS; 2016-11-06)
PROC: 0DH63UZ Insertion of Feeding Device into Stomach, Percutaneous Approach (ICD-10-PCS; 2016-11-06)
DX: A41.1 Sepsis due to other specified staphylococcus (principal); E13.10 Other specified diabetes mellitus with ketoacidosis without coma; J96.01 Acute respiratory failure with hypoxia; G93.41 Metabolic encephalopathy; K85.90 Acute pancreatitis without necrosis or infection, unspecified; N17.0 Acute kidney failure with tubular necrosis; M19.90 Unspecified osteoarthritis, unspecified site; I12.9 Hypertensive chronic kidney disease with stage 1 through stage 4 chronic kidney disease, or unspecified chronic kidney disease; E83.39 Other disorders of phosphorus metabolism; E87.5 Hyperkalemia; B37.3 Candidiasis of vulva and vagina; E87.0 Hyperosmolality and hypernatremia; J96.02 Acute respiratory failure with hypercapnia; D69.6 Thrombocytopenia, unspecified; J69.0 Pneumonitis due to inhalation of food and vomit; D63.8 Anemia in other chronic diseases classified elsewhere; N18.3 Chronic kidney disease, stage 3 (moderate); I82.621 Acute embolism and thrombosis of deep veins of right upper extremity; I16.0 Hypertensive urgency; G93.1 Anoxic brain damage, not elsewhere classified; J40 Bronchitis, not specified as acute or chronic; A04.7 Enterocolitis due to Clostridium difficile; I46.9 Cardiac arrest, cause unspecified; E11.51 Type 2 diabetes mellitus with diabetic peripheral angiopathy without gangrene; K52.9 Noninfective gastroenteritis and colitis, unspecified; I70.261 Atherosclerosis of native arteries of extremities with gangrene, right leg; Z90.49 Acquired absence of other specified parts of digestive tract; Z82.49 Family history of ischemic heart disease and other diseases of the circulatory system; Z90.710 Acquired absence of both cervix and uterus; Z79.899 Other long term (current) drug therapy; Z79.4 Long term (current) use of insulin; Z79.82 Long term (current) use of aspirin; Z88.0 Allergy status to penicillin; N39.0 Urinary tract infection, site not specified
CPT/HCPCS: 36415; 36600; 37225; 37228; 37232; 70450; 70551; 71010; 74000; 74176; 75710; 76770; 76937; 80048; 80053; 80061; 80202; 81001; 82010; 82140; 82150; 82436; 82550; 82553; 82570; 82607; 82803; 82805; 82962; 83690; 83735; 83930; 83935; 84100; 84133; 84156; 84300; 84439; 84443; 84484; 85007; 85014; 85018; 85025; 85027; 85049; 85520; 85610; 85730; 86140; 86850; 86900; 86901; 86920; 87040; 87070; 87086; 87205; 87493; 88307; 88311; 93005; 93010; 93306; 94002; 94003; 94760; 95819; 96361; 96365; 96366; 96368; 96372; 96375; 99291; C1724; C1725; C1760; C1769; C1887; C9113; J0171; J0330; J1100; J1165; J1170; J1450; J1630; J1644; J1650; J1815; J1818; J1940; J1956; J2060; J2250; J2270; J2405; J2704; J2765; J2997; J3010; J3246; J3370; J3475; J3480; J7030; J7040; J7050; P9016; Q9967